=== PATIENT | female | born 1970 | race African-American/Black ===

== ENCOUNTER 2019-07-16 11:35 | Outpatient (CLI) | payer MEDICARE, SELFPAY ==
[2019-07-16 12:42] LABS: Hemoglobin A1C 8.5 % (<5.7)
[2019-07-16 12:47] LABS: Alanine Aminotransferase 24 U/L (4-35); Albumin Level 4.3 g/dL (3.5-5.1); Alkaline Phosphatase 142 U/L (38-126); Aspartate Amino Transferase 32 U/L (14-36); Bilirubin,Total 0.3 mg/dL (0.2-1.3); Blood Urea Nitrogen 16 mg/dL (7-17); Calcium 8.8 mg/dL (8.4-10.2); Carbon Dioxide 29 mmol/L (22-30); Chloride 104 mmol/L (98-107); Cholesterol 162 mg/dL (0-200); Estimated Glomerular Filt Rate > 60; Glucose 76 mg/dL (65-105); HDL Direct 34 mg/dL; Potassium 4.3 mmol/L (3.4-5.0); Sodium 139 mmol/L (137-145); Triglycerides 285 mg/dL (<150)
[2019-07-16 12:58] LABS: LDL Cholesterol Direct 64 mg/dL
== END 2019-07-16 11:36 | disposition home or self-care (01) ==
LOC: ANHIMG 15:25 → ANHLAB 15:26
PROVIDERS: PCP Family Medicine; Referring Provider Family Medicine; Visit Provider Urology
DX: N13.5 Crossing vessel and stricture of ureter without hydronephrosis (principal); E11.65 Type 2 diabetes mellitus with hyperglycemia; I10 Essential (primary) hypertension; E78.2 Mixed hyperlipidemia
CPT/HCPCS: 36415; 80053; 80061; 83036

== ENCOUNTER 2019-07-17 10:49 | Outpatient (CLI) | payer MEDICARE, SELFPAY ==
--- NOTE | ~2019-07-17 | NM_ITS ---
EXAMINATION: MIKY hunter renal scan DATE: 07/17/2019 13:17 INDICATION: Right hydronephrosis. TECHNIQUE: 8 mCi Tc-99m MAG3 was administered IV. 40 mg furosemide was administered IV immediately a fterward. The patient was scanned in the supine position. A posterior abdominal radionuclide angiogra m was obtained. A subsequent time course of static images of the kidneys, ureters, and bladder was ob tained. COMPARISON: CT abdomen and pelvis 02/10/2019 FINDINGS: The posterior abdominal radionuclide angiogram and sequential static images show normal siz e, position, and morphology of the kidneys. Peak renal parenchymal uptake was 8 min in right kidney a nd 2 min in left kidney (normal peak 3-5 minutes). The relative early renal uptake was 58% on the ri ght and 42% on the left (<40% is abnormal). No abnormalities of the ureters or bladder are seen. T1/2 for clearance of activity from the right kidney and proximal collecting system was >10 minutes. T1/2 for clearance of activity from the left kidney and proximal collecting system was 7 minutes. IMPRESSION: 1. Symmetric kidney function. 2. Delayed contrast clearance from right kidney and proximal collecting system, consistent with fixe d obstruction. Reviewed, dictated and finalized at location A. IMPRESSION: 1. Symmetric kidney function. 2. Delayed contrast clearance from right kidney and proximal collecting system , consistent with fixed obstruction.
== END 2019-07-17 10:50 | disposition home or self-care (01) ==
PROVIDERS: PCP Family Medicine; Visit Provider Urology
DX: N13.5 Crossing vessel and stricture of ureter without hydronephrosis (principal)
CPT/HCPCS: 78708; A9562; J1940

== ENCOUNTER 2019-08-11 18:12 | Emergency (ER) | payer MEDICARE, SELFPAY ==
--- NOTE | 2019-08-11 19:25 | PC.NURSE ---
LWBS, NO TRIAGE DONE LEFT AT 1923
== END 2019-08-11 18:13 | disposition left against medical advice (07) ==
LOC: ANHED 12-30 11:35
DX: Z53.21 Procedure and treatment not carried out due to patient leaving prior to being seen by health care provider (principal)
CPT/HCPCS: 99199

== ENCOUNTER 2019-09-21 16:57 | Emergency (ER) | payer MEDICARE, SELFPAY ==
--- NOTE | ~2019-09-21 | XR_ITS ---
EXAMINATION: XR chest 2V 09/21/2019 17:32 INDICATION: Chest pain and shortness of breath. PROCEDURE: PA and lateral views of the chest COMPARISON: 11/11/2017 FINDINGS: The lungs are clear. The cardiomediastinal silhouette is within normal limits. There are no pleural effusions. There is no pneumothorax suspected. IMPRESSION: 1: NO ACUTE CARDIOPULMONARY DISEASE. Reviewed, dictated and finalized at location A.
[2019-09-21 16:59] VITALS: BP 155/87; PULSE 91; RESP 22; TEMP 35.3; O2SAT 100
--- NOTE | 2019-09-21 17:09 | ECG_ITS ---
Measurements Intervals [place] Rate: 89 P: 55 WV: 174 QRS: 16 QRSD: 95 T: 9 QT: 359 QTc: 438 Interpretive Statements SINUS RHYTHM VOLTAGE CRITERIA FOR LVH BORDERLINE ECG Electronically Signed On 09-21-2019 17:11:15 CDT by Damian Powell D.O.
[2019-09-21 17:10] VITALS: PULSE 97
[2019-09-21 17:24] LABS: Basophils Absolute Auto 0.1 K/mm3 (0.0-0.1); Basophils Percent Auto 0.5 % (0.2-1.2); Eosinophils Absolute Auto 0.1 K/mm3 (0-0.3); Eosinophils Percent Auto 0.8 % (0-4.4); Hematocrit 34.1 % (37.0-47.0); Hemoglobin 11.6 g/dL (12.0-15.0); Immature Granulocyte Absolute 0.04 K/mm3 (0.00-0.031); Immature Granulocyte Percent A 0.4 % (0-0.5); Lymphocytes Absolute Auto 2.95 K/mm3 (0.9-3.2); Lymphocytes Percent Auto 27.4 % (18.3-44.2); Mean Corpuscular Hemoglobin 30.8 pg (26-34); Mean Corpuscular Volume 90.5 fl (80-100); Mean Platelet Volume 10.6 fl (7.4-10.4); Monocytes Absolute Auto 0.5 K/mm3 (0.1-0.6); Neutrophils Absolute Auto 7.1 K/mm3 (1.3-6.7); Neutrophils Percent Auto 65.9 % (45.5-73.1); Platelet Count Result 264 k/mm3 (150-375); Red Blood Count 3.77 M/mm3 (4.2-5.4); Red Cell Distribution Width 12.9 % (11.5-14.5); White Blood Count 10.8 K/mm3 (4.5-10.0)
[2019-09-21 17:34] LABS: Prothrombin Time 12.8 Seconds (11.1-14.7)
[2019-09-21 17:35] LABS: Partial Thromboplastin Time 24.2 SECONDS (22.3-36.8)
[2019-09-21 17:36] LABS: Blood Urea Nitrogen 18 mg/dL (7-17); Calcium 8.8 mg/dL (8.4-10.2); Carbon Dioxide 26 mmol/L (22-30); Chloride 100 mmol/L (98-107); Estimated CRCL calculation 62 ml/min; Estimated Glomerular Filt Rate > 60; Glucose 208 mg/dL (65-105); Sodium 135 mmol/L (137-145)
[2019-09-21 17:48] LABS: Troponin I < 0.012 ng/mL (0.000-0.034)
[2019-09-21] MEDS: ONDANSETRON INJ 4 MG/2 ML VIAL IV PUSH (17:54)
[2019-09-21] MEDS: MORPHINE SULFATE 2 MG/ML INJ IV PUSH (17:56)
[2019-09-21 17:57] VITALS: BP 153/78; PULSE 96; RESP 22; O2SAT 100
--- NOTE | 2019-09-21 18:15 | ED.GENADULT ---
HPI - General Adult General Chief complaint: Chest Pain Stated complaint: sob/cp Time Seen by Provider: 09/21/19 17:29 Source: patient and family Mode of arrival: ambulatory Limitations: no limitations History of Present Illness HPI narrative: 49-year-old with a history of hypertension, diabetes here with complaints of sudden onset of neck pain radiating into her left arm. Patient states that she was at [employer] restaurant was just about to start her dinner developed chest pain. Patient also states that she broke up into cold sweats. She denied any chest pain or shortness of breath. Pain is mostly in the left part of the shoulder. Onset (ago): hour(s) (1) Location: neck Radiation: extremity (left) Severity: moderate Quality: aching Pain Consistency: constant Relieving factors: none Exacerbating factors: movement Associated symptoms: denies other symptoms Related Data Home Medications Medication Instructions Recorded Confirmed dulaglutide [Trulicity] mg SUBCUT 02/10/19 hydrochlorothiazide 02/10/19 insulin lispro [Humalog KwikPen 1 unit SUBCUT ONCE 02/10/19 Insulin] insulin lispro protamin-lispro SUBCUT 02/10/19 [Humalog Mix 75-25(U-100)Insuln] lisinopril 40 mg PO DAILY 02/10/19 simvastatin mg 02/10/19 metoprolol tartrate 09/21/19 oxycodone-acetaminophen 09/21/19 Allergies Allergy/AdvReac Type Severity Reaction Status Date / Time amoxicillin Allergy Unknown Rash Verified 09/21/19 17:14 Penicillins Allergy Unknown Rash Verified 09/21/19 17:14 Review of Systems Review of Systems: All systems reviewed & are unremarkable except as noted in HPI and below Constitutional: Constitutional: Reports no additional constitutional complaints Eyes: Eyes: Reports no additional eye complaints ENT: Reports system reviewed and no additional complaints, except as documented Cardiovascular: Cardiovascular: Reports no additional cardiovascular complaints Respiratory: Respiratory: Reports no additional respiratory complaints Gastrointestinal: Gastrointestinal: Reports as per HPI Musculoskeletal: Musculoskeletal: Reports as per HPI Neurologic: Reports system reviewed and no additional complaints, except as documented Endocrine: Endocrine: Reports no additional endocrine complaints Hematologic/Lymphatic: Hematologic/Lymphatic: Reports no additional hematologic/lymphatic complaints PMFSH Past Medical History Medical History Hypertension Surgical History Surgical History History of urostomy Family History Family History Mother Diabetes mellitus Father Hypertension Sibling Cerebrovascular accident Other Family history of arthritis Social History Social History Smoking status: Never smoker Alcohol intake: never Gender identity (if verbalized by the patient): Female Exam Narrative: Exam Narrative: GENERAL: Well-appearing, well-nourished, and in no acute distress. HEAD: Normocephalic, atraumatic. EYES: PERRLA and EOMI. ENT: Nares clear, no rhinorrhea or epistaxis. Mucous membranes moist. NECK: Supple. CHEST: Clear to auscultation. No respiratory distress. HEART: Regular rate and rhythm. No murmur heard. Normal peripheral pulses. ABDOMEN: Soft, non tender, non distended, normal active bowel sounds. EXTREMITIES: Normal range of motion. No edema.pain and tenderness in the left trapezius SKIN: Warm, dry, no rash. NEURO: No focal deficits. Alert and oriented x3. PSYCH: Normal mood and affect. Course Course Emergency Course: Patient states the pain is much improved after morphine. I discussed labs, EKG chest x-ray findings with the patient. Vital Signs Vital signs: Vital Signs Temperature 35.3 C L 09/21/19 16:59 Pulse Rate 91 09/21/19 16:59 Respiratory Rate
[2019-09-21 19:00] VITALS: O2SAT 99
[2019-09-21 19:38] VITALS: BP 121/73; PULSE 89; RESP 17; TEMP 37; O2SAT 100
== END 2019-09-21 19:38 | disposition home or self-care (01) ==
PROVIDERS: Emergency Provider Family Medicine; PCP Family Medicine
DX: R07.89 Other chest pain (principal); M54.10 Radiculopathy, site unspecified; I10 Essential (primary) hypertension; E11.9 Type 2 diabetes mellitus without complications; Z79.4 Long term (current) use of insulin; R94.31 Abnormal electrocardiogram [ECG] [EKG]
CPT/HCPCS: 36415; 71046; 80048; 84484; 85025; 85610; 85730; 93005; 96374; 96375; 99284; J2270; J2405

== ENCOUNTER 2020-01-02 11:24 | Outpatient (CLI) | payer MEDICARE, SELFPAY ==
[2020-01-02 12:07] LABS: Basophils Percent Auto 0.6 % (0.2-1.2); Eosinophils Absolute Auto 0.1 K/mm3 (0-0.3); Eosinophils Percent Auto 0.8 % (0-4.4); Hematocrit 38.8 % (37.0-47.0); Hemoglobin 13.1 g/dL (12.0-15.0); Immature Granulocyte Absolute 0.02 K/mm3 (0.00-0.031); Immature Granulocyte Percent A 0.3 % (0-0.5); Lymphocytes Absolute Auto 2.41 K/mm3 (0.9-3.2); Lymphocytes Percent Auto 33.2 % (18.3-44.2); Mean Corpuscular HGB Conc 33.8 g/dl (32-36); Mean Corpuscular Hemoglobin 30.8 pg (26-34); Mean Corpuscular Volume 91.3 fl (80-100); Mean Platelet Volume 10.7 fl (7.4-10.4); Monocytes Absolute Auto 0.4 K/mm3 (0.1-0.6); Monocytes Percent Auto 6.1 % (2.6-8.5); Neutrophils Absolute Auto 4.3 K/mm3 (1.3-6.7); Platelet Count Result 255 k/mm3 (150-375); Red Blood Count 4.25 M/mm3 (4.2-5.4); Red Cell Distribution Width 13.2 % (11.5-14.5); White Blood Count 7.3 K/mm3 (4.5-10.0)
[2020-01-02 12:21] LABS: Alanine Aminotransferase 64 U/L (4-35); Albumin Level 4.3 g/dL (3.5-5.1); Alkaline Phosphatase 150 U/L (38-126); Anion Gap 9 mmol/L (8-16); Aspartate Amino Transferase 45 U/L (14-36); Bilirubin,Total 0.7 mg/dL (0.2-1.3); Blood Urea Nitrogen 23 mg/dL (7-17); Calcium 9.8 mg/dL (8.4-10.2); Carbon Dioxide 27 mmol/L (22-30); Chloride 104 mmol/L (98-107); Estimated Glomerular Filt Rate > 60; Glucose 159 mg/dL (65-105); Magnesium 1.9 mg/dL (1.6-2.3); Potassium 5.3 mmol/L (3.4-5.0); Sodium 140 mmol/L (137-145)
[2020-01-02 12:28] LABS: Transferrin 250 mg/dL (206-381)
[2020-01-02 12:57] LABS: Iron 113 ug/dL (37-170)
[2020-01-02 13:06] LABS: Percent Iron Saturation 34 % (20-50)
[2020-01-02 13:14] LABS: Vitamin D 25 Hydroxy 17.7 ng/mL
[2020-01-02 13:15] LABS: Free T4 Free Thyroxine 0.82 ng/mL (0.78-2.19)
== END 2020-01-02 11:25 | disposition home or self-care (01) ==
LOC: ANHLAB 11:27
PROVIDERS: PCP Family Medicine; Visit Provider Family Medicine
DX: R55 Syncope and collapse (principal); I10 Essential (primary) hypertension; E11.42 Type 2 diabetes mellitus with diabetic polyneuropathy; Z51.81 Encounter for therapeutic drug level monitoring; Z79.899 Other long term (current) drug therapy; R53.83 Other fatigue
CPT/HCPCS: 36415; 80053; 82306; 82728; 83540; 83550; 83735; 84439; 84443; 84466; 85025

== ENCOUNTER 2020-02-16 09:31 | Outpatient (CLI) | payer MEDICARE, SELFPAY ==
--- NOTE | ~2020-02-16 | MM_ITS ---
EXAMINATION: MM screening jocelyn BI w lynne HISTORY: Screening TECHNIQUE: Craniocaudal and mediolateral oblique 3-D tomosynthesis images were obtained and synthetic 2-D images were generated. CAD analysis was submitted and interpreted. COMPARISON: Comparison to multiple prior studies sequentially, with oldest reviewed study dated 06/28. BREAST PARENCHYMAL COMPOSITION: There are scattered areas of fibroglandular density. FINDINGS: There are clusters of calcifications in the upper outer quadrant of the left breast. The ri ght breast is stable without evidence for malignancy. IMPRESSION: 1. Cluster of nonspecific calcifications developing in the upper outer quadrant of the left breast. 2. Magnification views are recommended. BI-RADS Category 0: Incomplete: Needs additional imaging evaluation. Reviewed, dictated and finalized at location A. ION ANALYST
== END 2020-02-16 09:32 | disposition home or self-care (01) ==
PROVIDERS: PCP Family Medicine; Visit Provider Family Medicine
DX: Z12.31 Encounter for screening mammogram for malignant neoplasm of breast (principal); R92.8 Other abnormal and inconclusive findings on diagnostic imaging of breast
CPT/HCPCS: 77063; 77067

== ENCOUNTER 2020-03-15 11:47 | Outpatient (CLI) | payer MEDICARE, SELFPAY ==
--- NOTE | ~2020-03-15 | MM_ITS ---
EXAMINATION: MM diagnostic mammo unilat LT HISTORY: Follow-up left breast calcifications TECHNIQUE: Additional 3-D tomosynthesis images of the left breast were performed and synthetic 2-D im ages were generated. CAD analysis was submitted and interpreted. COMPARISON: Comparison to multiple prior studies sequentially, with oldest reviewed study dated 06/28. BREAST PARENCHYMAL COMPOSITION: Breast composed of scattered areas of fibroglandular density. FINDINGS: There are clustered indeterminate calcifications upper outer quadrant of the left breast wh ich have increased in number and density compared with prior examination. There are no suspicious mas ses or architectural distortion. IMPRESSION: 1. Increasing number and density of clustered indeterminate calcifications upper outer quadrant of th e left breast. 2. Stereotactic left breast biopsy recommended. BI-RADS category 4, suspicious findings. Reviewed, dictated and finalized at location A. DESIGNER IMPRESSION: 1. Increasing number and density of clustered indeterminate calcifications uppe r outer quadrant of the left breast. 2. Stereotactic left breast biopsy recommended. BI-RADS category 4, suspicious findings.
== END 2020-03-15 11:48 | disposition home or self-care (01) ==
LOC: ANHIMG 11:49
PROVIDERS: PCP Family Medicine; Visit Provider Family Medicine
DX: R92.8 Other abnormal and inconclusive findings on diagnostic imaging of breast (principal)
CPT/HCPCS: 77065

== ENCOUNTER 2020-06-30 09:57 | Outpatient (CLI) | payer MEDICARE, SELFPAY ==
[2020-06-30 11:27] LABS: Hemoglobin A1C 9.6 % (<5.7)
[2020-06-30 11:38] LABS: Alanine Aminotransferase 19 U/L (4-35); Albumin Level 4.3 g/dL (3.5-5.1); Alkaline Phosphatase 134 U/L (38-126); Amylase 55 U/L (30-110); Anion Gap 8 mmol/L (8-16); Aspartate Amino Transferase 27 U/L (14-36); Bilirubin,Total 0.3 mg/dL (0.2-1.3); Blood Urea Nitrogen 31 mg/dL (7-17); Calcium 9.5 mg/dL (8.4-10.2); Carbon Dioxide 25 mmol/L (22-30); Chloride 104 mmol/L (98-107); Estimated Glomerular Filt Rate 58; Glucose 134 mg/dL (65-105); Lipase 102 U/L (23-300); Potassium 4.7 mmol/L (3.4-5.0); Sodium 137 mmol/L (137-145)
[2020-06-30 12:15] LABS: Vitamin D 25 Hydroxy 29.1 ng/mL
== END 2020-06-30 09:58 | disposition home or self-care (01) ==
PROVIDERS: PCP Family Medicine; Visit Provider Family Medicine
DX: E11.9 Type 2 diabetes mellitus without complications (principal); E55.9 Vitamin D deficiency, unspecified; E78.1 Pure hyperglyceridemia
CPT/HCPCS: 36415; 80053; 82150; 82306; 83036; 83690

== ENCOUNTER 2020-07-20 09:39 | Outpatient (CLI) | payer MEDICARE, SELFPAY ==
[2020-07-20 11:11] LABS: Basophils Absolute Auto 0.1 K/mm3 (0.0-0.1); Basophils Percent Auto 0.6 % (0.2-1.2); Eosinophils Absolute Auto 0.1 K/mm3 (0-0.3); Eosinophils Percent Auto 1.3 % (0-4.4); Hematocrit 33.3 % (37.0-47.0); Hemoglobin 11.7 g/dL (12.0-15.0); Immature Granulocyte Absolute 0.02 K/mm3 (0.00-0.031); Immature Granulocyte Percent A 0.2 % (0-0.5); Lymphocytes Absolute Auto 2.79 K/mm3 (0.9-3.2); Lymphocytes Percent Auto 34.1 % (18.3-44.2); Mean Corpuscular HGB Conc 35.1 g/dl (32-36); Mean Corpuscular Hemoglobin 30.6 pg (26-34); Mean Corpuscular Volume 87.2 fl (80-100); Mean Platelet Volume 11.6 fl (7.4-10.4); Monocytes Absolute Auto 0.4 K/mm3 (0.1-0.6); Monocytes Percent Auto 4.5 % (2.6-8.5); Neutrophils Absolute Auto 4.8 K/mm3 (1.3-6.7); Neutrophils Percent Auto 59.3 % (45.5-73.1); Platelet Count Result 241 k/mm3 (150-375); Red Blood Count 3.82 M/mm3 (4.2-5.4); Red Cell Distribution Width 12.7 % (11.5-14.5); White Blood Count 8.2 K/mm3 (4.5-10.0)
[2020-07-20 11:22] LABS: Alanine Aminotransferase 26 U/L (4-35); Albumin Level 4.1 g/dL (3.5-5.1); Alkaline Phosphatase 133 U/L (38-126); Anion Gap 7 mmol/L (8-16); Aspartate Amino Transferase 33 U/L (14-36); Bilirubin,Total 0.3 mg/dL (0.2-1.3); Blood Urea Nitrogen 19 mg/dL (7-17); Carbon Dioxide 30 mmol/L (22-30); Chloride 104 mmol/L (98-107); Estimated Glomerular Filt Rate > 60; Glucose 187 mg/dL (65-105); Potassium 4.1 mmol/L (3.4-5.0); Sodium 141 mmol/L (137-145)
[2020-07-20 11:25] LABS: INR 0.9; Prothrombin Time 12.5 Seconds (11.1-14.7)
== END 2020-07-20 09:40 | disposition home or self-care (01) ==
PROVIDERS: PCP Family Medicine; Visit Provider Internal Medicine Cardiovascular Disease
DX: R07.9 Chest pain, unspecified (principal); Z01.818 Encounter for other preprocedural examination
CPT/HCPCS: 36415; 80053; 85025; 85610

== ENCOUNTER 2020-09-11 15:46 | Emergency (ER) | payer MEDICARE, SELFPAY ==
[2020-09-11 15:54] VITALS: BP 151/90; PULSE 75; RESP 18; TEMP 36.5; O2SAT 100
[2020-09-11 15:57] VITALS: BP 151/90; PULSE 75; RESP 18; TEMP 36.5; O2SAT 100
--- NOTE | 2020-09-11 16:37 | ED.GENADULT ---
HPI - General Adult General Chief complaint: Urogenital-Female Stated complaint: Yeast Infection Source: patient Mode of arrival: ambulatory Limitations: no limitations History of Present Illness HPI narrative: Patient presents for evaluation of right-sided flank/abdominal pain. She indicates symptoms started on Sunday of this week. Pain is intermittent, and radiates from the right flank into the right groin. She has not visualized any vaginal discharge but believes she has some as she has experienced pruritus in the vaginal region. She states today she noted blood on the tissue after wiping with urination. Last night she experienced some hot flashes and chills. She further endorses nausea without vomiting. She is a fairly poor historian but states that she has been under the care of what sounds to be either nephrology or urology for unknown issues. She states that advanced imaging was ordered by her specialist approximately 1.5 months ago but was declined by her insurance. She tried OTC monistat but her symptoms persisted. She contacted her PCP and received oral diflucan, which has not alleviated her symptoms. Surgical history positive for bladder sling, and complete hysterectomy. She states that she has a history of diabetes and is using Humulin 65 units in the morning and 55 units in the evening. She states her blood sugars have been fairly well controlled. Of note though, patient has a history of trans-metatarsal amputation secondary to diabetes. Related Data Home Medications Medication Instructions Recorded Confirmed dulaglutide [Trulicity] mg SUBCUT 02/10/19 hydrochlorothiazide 02/10/19 insulin lispro [Humalog KwikPen 1 unit SUBCUT ONCE 02/10/19 Insulin] lisinopril 40 mg PO DAILY 02/10/19 metoprolol tartrate 09/21/19 Allergies Allergy/AdvReac Type Severity Reaction Status Date / Time amoxicillin Allergy Unknown Rash Verified 09/11/20 15:51 Penicillins Allergy Unknown Rash Verified 09/11/20 15:51 Review of Systems Review of Systems: Narrative: CONSTITUTIONAL: Reports hot flashes and chills. Denies objective fever. EYES: Denies visual changes, redness, or discharge. ENT: Denies rhinorrhea, congestion, sore throat, or otalgia. CARDIOVASCULAR: Denies chest pain, palpitations, or edema. RESPIRATORY: Denies cough or dyspnea. GASTROINTESTINAL: Reports abdominal pain and nausea without vomiting. GENITOURINARY: Reports vaginal pruritus. Reports blood on the tissue after wiping with urination. SKIN: Denies rash MUSCULOSKELETAL: Reports right flank pain. Denies joint pain, or myalgia. NEUROLOGIC: Denies headache, numbness, dizziness, or weakness. PSYCHIATRIC: Denies anxiety or depression. [facility] Past Medical History Medical History (Updated 09/11/20 @ 17:36 by Lex Luong, CHICKEN TENDER, ) Diabetes Hypertension Surgical History Surgical History (Updated 09/11/20 @ 16:42 by Lex Luong [facility], ) H/O: hysterectomy History of transmetatarsal amputation of left foot History of urostomy Family History Family History Mother Diabetes mellitus Father Hypertension Sibling Cerebrovascular accident Other Family history of arthritis Social History Social History Smoking status: Never smoker Alcohol intake: never Substance use: never Gender identity (if verbalized by the patient): Female Spiritual care concerns: No Exam Narrative: Exam Narrative: GENERAL: Well-appearing, well-nourished, and in no acute distress. HEAD: Normocephalic, atraumatic. EYES: PERRLA and EOMI. ENT: Nares clear, no rhinorrhea or epistaxis. Mucous membranes moist. Oropharynx without tonsillar hypertrophy exudate or other lesions. Bilateral TMs pearly valentine nonbulging NECK: Supple. No adenopathy or masses. No carotid bruits or JVD CHEST: Clear to auscultation. No respiratory distress.
--- NOTE | 2020-09-11 17:21 | PC.NURSE ---
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 she didnt mention any worry about him stepping out of the marriage.
--- NOTE | 2020-09-11 17:24 | PC.NURSE ---
Addendum entered by Cheli Brito RN 09/11/20 17:25: time is 1724 not 192 Original Note: 1924- HAND III CUTTER contacted er for potential transfer to [facility].
--- NOTE | 2020-09-11 17:27 | PC.NURSE ---
1726- pt states that she is familiar with [facility], and would like to go there.
== END 2020-09-11 17:45 | disposition short-term general hospital (02) ==
PROVIDERS: Emergency Provider Nurse Practitioner; PCP Family Medicine
DX: R10.31 Right lower quadrant pain (principal); E11.9 Type 2 diabetes mellitus without complications; I10 Essential (primary) hypertension
CPT/HCPCS: 81003; 87070; 87086; 87088; 87491; 87591; 87661; 99213; G0463

== ENCOUNTER 2020-10-11 08:57 | Outpatient (CLI) | payer MEDICARE, SELFPAY ==
[2020-10-11 10:14] LABS: Alanine Aminotransferase 22 U/L (4-35); Albumin Level 4.2 g/dL (3.5-5.1); Alkaline Phosphatase 127 U/L (38-126); Anion Gap 9 mmol/L (8-16); Aspartate Amino Transferase 24 U/L (14-36); Bilirubin,Total 0.3 mg/dL (0.2-1.3); Blood Urea Nitrogen 23 mg/dL (7-17); Calcium 8.6 mg/dL (8.4-10.2); Carbon Dioxide 25 mmol/L (22-30); Chloride 101 mmol/L (98-107); Estimated Glomerular Filt Rate > 60; Glucose 156 mg/dL (65-110); Potassium 4.4 mmol/L (3.4-5.0); Sodium 135 mmol/L (137-145)
[2020-10-11 11:41] LABS: Hepatitis C Virus Antibody Negative (Negative)
== END 2020-10-11 08:58 | disposition home or self-care (01) ==
PROVIDERS: PCP Family Medicine
DX: E83.59 Other disorders of calcium metabolism (principal); N29 Other disorders of kidney and ureter in diseases classified elsewhere; I10 Essential (primary) hypertension; Z11.59 Encounter for screening for other viral diseases; R10.11 Right upper quadrant pain
CPT/HCPCS: 36415; 80053; 86803; 99212; G0463

== ENCOUNTER 2020-10-22 08:32 | Outpatient (CLI) | payer MEDICARE, SELFPAY ==
--- NOTE | ~2020-10-22 | US_ITS ---
EXAMINATION: US right upper quadrant DATE: 10/22/2020 09:24 INDICATION: Right upper quadrant pain TECHNIQUE: Multiple grayscale and Doppler ultrasound images of the abdomen were obtained. COMPARISON: None available FINDINGS: Bowel gas obscures visualization of the pancreas. The liver is normal with normal echogenic ity and echotexture. No surface nodularity. Normal hepatopetal flow in the main portal vein. The gall bladder is normal with no abnormal wall thickening, pericholecystic fluid or stones. The normal commo n bile duct measures 4 mm. There was no sonographic Chow sign. IMPRESSION: 1. Normal sonographic study of the gallbladder. Reviewed, dictated and finalized at location A.
== END 2020-10-22 08:33 | disposition home or self-care (01) ==
PROVIDERS: PCP Family Medicine
DX: R10.11 Right upper quadrant pain (principal)
CPT/HCPCS: 76705

== ENCOUNTER 2022-09-29 15:07 | Emergency (ER) | payer MEDICARE, SELFPAY ==
--- NOTE | ~2022-09-29 | XR_ITS ---
EXAMINATION: XR chest 2V Exam Date/Time: 09/29/2022 16:30 CDT HISTORY: short of breath upon exertion fatigue non smoker Comparison: 09/21/2019. RESULT: Lines, tubes, and devices: None. Lungs and pleura: Clear. Cardiomediastinal silhouette: Stable. Other: No acute osseous or upper abdominal finding. IMPRESSION: No acute cardiopulmonary process. Reviewed, dictated and finalized at location K.
[2022-09-29 15:21] VITALS: BP 140/93; PULSE 91; RESP 16; TEMP 37.2; O2SAT 100
--- NOTE | 2022-09-29 16:03 | ED.GENADULT ---
HPI - General Adult General Chief complaint: Unspecified Stated complaint: unsteady on feet, jitters, not feeling well Time Seen by Provider: 09/29/22 16:04 Source: patient Mode of arrival: ambulatory Limitations: no limitations History of Present Illness HPI narrative: 52-year-old female with history of diabetes and hypertension presented for complaint feeling exhausted for 1 week. She endorses dizziness when standing, intermittent hot flashes were she feels like she is about to pass out, and endorses shortness of breath with walking. She states walking from the bathroom to the kitchen in her home causes shortness of breath and she feels she needs to sit down immediately. Endorses brief episode of palpitations when she arrived to the clinic today, which resolved. Also reports nausea, and feeling like her tongue is 'heavy' and could not swallow. Last meal was breakfast today. Denies chest pain, cough, abdominal pain, vomiting, urinary complaints. Patient reports recent hospitalization for 'right foot infection' and abdominal pain after starting Trulicity. Endorses recent blood glucose levels 170s, last a1c 8.8. Related Data Home Medications Medication Instructions Recorded Confirmed dulaglutide 1.5 mg/0.5 mL 3.5 mg subcut WEEKLY 02/10/19 09/29/22 subcutaneous pen injector (Trulicity) hydrochlorothiazide 12.5 mg tablet 12.5 mg PO DAILY 02/10/19 09/29/22 insulin lispro 100 unit/mL 1 unit subcut ONCE 02/10/19 09/29/22 subcutaneous pen (Humalog KwikPen (U-100) Insulin) lisinopril 40 mg tablet 40 mg PO DAILY 02/10/19 09/29/22 metoprolol tartrate 50 mg tablet 50 mg PO DAILY 09/21/19 09/29/22 amlodipine 10 mg tablet 10 mg PO DAILY 09/29/22 09/29/22 prochlorperazine maleate 10 mg 10 mg PO DAILY 09/29/22 09/29/22 tablet simvastatin 40 mg tablet 40 mg PO DAILY 09/29/22 09/29/22 venlafaxine 37.5 mg 37.5 mg PO DAILY 09/29/22 09/29/22 capsule,extended release 24 hr Allergies Allergy/AdvReac Type Severity Reaction Status Date / Time amoxicillin Allergy Unknown Rash Verified 09/29/22 15:34 Penicillins Allergy Unknown Rash Verified 09/29/22 15:34 Review of Systems Review of Systems: CONSTITUTIONAL: Denies body aches, fever, chills, Reports fatigue and sweats. EYES: Denies visual changes, redness, or discharge. ENT: Denies rhinorrhea, congestion, sore throat, or otalgia. CARDIOVASCULAR: Reports palpitations denies chest pain, or edema. RESPIRATORY: Denies cough reports shortness of breath exertion GASTROINTESTINAL: Denies abdominal pain, vomiting, or diarrhea. GENITOURINARY: Denies dysuria or hematuria. SKIN: Denies rash, itching, or wounds. MUSCULOSKELETAL: Denies back pain, joint pain, or myalgia. NEUROLOGIC: Reports dizziness denies headache, numbness, tingling, or weakness. All systems reviewed & are unremarkable except as noted in HPI and below PMFSH Past Medical History Medical History Diabetes Hypertension Surgical History Surgical History H/O: hysterectomy History of transmetatarsal amputation of left foot History of urostomy Family History Family History Mother Diabetes mellitus Father Hypertension Sibling Cerebrovascular accident Other Family history of arthritis Social History Social History Smoking status: Never smoker Alcohol intake: never Substance use: never Gender identity (if verbalized by the patient): Female Spiritual care concerns: No Comments At time of signature, I have reviewed and agree with nursing past medical, surgical, social and family history unless otherwise noted. Please see nursing chart for further information. There is no relevant family history pertinent to the presenting complaint Exam Narrative: GENERAL: mildl
--- NOTE | 2022-09-29 16:24 | ECG_ITS ---
Measurements Intervals [place] Rate: 85 P: 48 [place]: 169 QRS: 28 QRSD: 84 T: 78 QT: 349 QTc: 416 Interpretive Statements SINUS RHYTHM NONSPECIFIC T-WAVE ABNORMALITY ABNORMAL ECG COMPARED TO ECG 09/21/2019 17:04:01 T-WAVE ABNORMALITY NOW PRESENT Electronically Signed On 09-30-2022 12:37:06 CDT by Lex Barney M.D.
[2022-09-29 16:49] LABS: Glucose Point of Care 191 mg/dl (65-105)
== END 2022-09-29 17:39 | disposition short-term general hospital (02) ==
PROVIDERS: Emergency Provider Nurse Practitioner Family
DX: R42 Dizziness and giddiness (principal); R06.00 Dyspnea, unspecified; E11.9 Type 2 diabetes mellitus without complications; I10 Essential (primary) hypertension
CPT/HCPCS: 71046; 82948; 93005; 99213; G0463

== ENCOUNTER 2022-12-08 13:28 | Outpatient (CLI) | payer MEDICARE, SELFPAY ==
--- NOTE | ~2022-12-08 | MM_ITS ---
EXAMINATION: MM screening jocelyn BI w [facility] HISTORY: Screening TECHNIQUE: Craniocaudal and mediolateral oblique 3-D tomosynthesis images were obtained and synthetic 2-D images were generated. CAD analysis was submitted and interpreted. COMPARISON: Comparison to multiple prior studies sequentially, with oldest reviewed study dated 06/28. BREAST PARENCHYMAL COMPOSITION: Breast composed of scattered areas of fibroglandular density FINDINGS: There is no evidence of suspicious mass, calcification, or architectural distortion to sugg est malignancy in either breast. There has been no suspicious interval change. IMPRESSION: 1. No mammographic evidence of malignancy. 2. Recommend routine screening mammography in one year. BI-RADS Category 1: Negative Reviewed, dictated and finalized at location A.
== END 2022-12-08 13:29 | disposition home or self-care (01) ==
LOC: ANHIMG 13:31
PROVIDERS: PCP Internal Medicine; Visit Provider Internal Medicine
DX: Z12.31 Encounter for screening mammogram for malignant neoplasm of breast (principal)
CPT/HCPCS: 77063; 77067

== ENCOUNTER 2022-12-30 10:40 | Emergency (ER) | payer MEDICARE, SELFPAY ==
[2022-12-30 11:03] VITALS: BP 153/80; PULSE 85; RESP 14; TEMP 36.4; O2SAT 100
--- NOTE | 2022-12-30 11:53 | ED.FEMALEGU ---
HPI - Female Genitourinary General Chief complaint: Urogenital-Female Stated complaint: UTI Time Seen by Provider: 12/30/22 11:40 Source: patient, RN notes reviewed and old records reviewed (previous UAs) Mode of arrival: ambulatory Limitations: no limitations History of Present Illness HPI Narrative: Patient presents today complaining of suprapubic, ?heaviness? and cramping since yesterday. Patient was on ciprofloxacin prescribed by her PCP from 12/22 to 12/29/2022. She did not provide urine sample in her PCPs office, but was prescribed medication based on her symptoms as she has frequent UTIs. States her dysuria had resolved. She is getting ready to go out of town and wanted to make sure she did not develop an additional UTI prior to leaving. Related Data Home Medications Medication Instructions Recorded Confirmed hydrochlorothiazide 12.5 mg tablet 12.5 mg PO DAILY 02/10/19 12/30/22 insulin lispro 100 unit/mL 1 unit subcut ONCE 02/10/19 12/30/22 subcutaneous pen (Humalog KwikPen (U-100) Insulin) lisinopril 40 mg tablet 40 mg PO DAILY 02/10/19 12/30/22 metoprolol tartrate 50 mg tablet 50 mg PO DAILY 09/21/19 12/30/22 amlodipine 10 mg tablet 10 mg PO DAILY 09/29/22 12/30/22 prochlorperazine maleate 10 mg 10 mg PO DAILY 09/29/22 12/30/22 tablet simvastatin 40 mg tablet 40 mg PO DAILY 09/29/22 12/30/22 venlafaxine 37.5 mg 37.5 mg PO DAILY 09/29/22 12/30/22 capsule,extended release 24 hr Allergies Allergy/AdvReac Type Severity Reaction Status Date / Time amoxicillin Allergy Unknown Rash Verified 09/29/22 15:34 Penicillins Allergy Unknown Rash Verified 09/29/22 15:34 fish oil Allergy Rash Verified 12/30/22 11:06 Review of Systems Review of Systems: CONSTITUTIONAL: Denies body aches, fever, chills, or sweats. EYES: Denies visual changes, redness, or discharge. ENT: Denies rhinorrhea, congestion, sore throat, or otalgia. CARDIOVASCULAR: Denies chest pain, palpitations, or edema. RESPIRATORY: Denies cough or dyspnea. GASTROINTESTINAL: Denies abdominal pain, nausea, vomiting, or diarrhea. GENITOURINARY: Denies dysuria or hematuria. + suprapubic cramping SKIN: Denies rash, itching, or wounds. MUSCULOSKELETAL: Denies back pain, joint pain, or myalgia. NEUROLOGIC: Denies headache, numbness, tingling, or weakness. PSYCH: Denies depression or anxiety. [facility] Past Medical History Medical History Diabetes Hypertension Surgical History Surgical History H/O: hysterectomy History of transmetatarsal amputation of left foot History of urostomy Family History Family History Mother Diabetes mellitus Father Hypertension Sibling Cerebrovascular accident Other Family history of arthritis Social History Social History Smoking status: Never smoker Alcohol intake: never Substance use: never Gender identity (if verbalized by the patient): Female Spiritual care concerns: No Comments At time of signature, I have reviewed and agree with nursing past medical, surgical, social and family history unless otherwise noted. Please see nursing chart for further information. There is no relevant family history pertinent to the presenting complaint Exam Narrative: GENERAL: Well-appearing, well-nourished, and in no acute distress. HEAD: Normocephalic, atraumatic. EYES: EOMI. No redness or drainage. Conjunctivae normal. ENT: Mucous membranes pink and moist. NECK: Normal AROM. CHEST: No respiratory distress. Clear to auscultation. HEART: Regular rate and rhythm. No murmur appreciated. Normal peripheral pulses. ABDOMEN: Soft, nontender, nondistended, normal active bowel sounds. EXTREMITIES: Normal range of motion. No edema. SKIN: Warm, dry, no rash. Capillary r
== END 2022-12-30 12:00 | disposition home or self-care (01) ==
PROVIDERS: Emergency Provider Nurse Practitioner
DX: R10.30 Lower abdominal pain, unspecified (principal); E11.9 Type 2 diabetes mellitus without complications; I10 Essential (primary) hypertension; Z79.899 Other long term (current) drug therapy
CPT/HCPCS: 81003; 87086; 87088; 99213; G0463

== ENCOUNTER 2023-05-20 16:21 | Inpatient (IN) | payer MEDICARE, SELFPAY ==
[2023-05-20] VITALS (12 sets, daily range): BP systolic 152–187; BP diastolic 78–94; PULSE 87–92; RESP 12–21; TEMP 36.2–36.9; O2SAT 100; BMI 31.4
--- NOTE | ~2023-05-20 | CT_ITS ---
Non-contrast CT scan of the Abdomen and Pelvis Clinical indication: Abdominal pain Technique: 2.5 mm axial scans were obtained through the abdomen and pelvis without intravenous or or al contrast. Dose reduction technique was used on this scan by utilizing automated exposure control a nd iterative reconstruction technique. The dose-length product (DLP) was 917.16 mGy-cm. Findings: Images through the lung bases reveal no abnormalities. There are 3 mm bilateral nonobstructing renal stones. Left kidney otherwise unremarkable, without hyd ronephrosis or left ureteral stone. There are multiple low-density somewhat masslike lesions in the r ight kidney. Mild fullness the right renal pelvis. No right ureteral stone. The liver, spleen, pancreas, gallbladder, and adrenals appear normal. There is no aortic aneurysm. There is no evidence of bowel obstruction. Images through the pelvis were performed. There is no evidence of ascites or lymphadenopathy. Urinary bladder unremarkable. No pelvic mass seen. Impression: Multiple low-density somewhat masslike lesion in the right kidney. Findings could reflect cysts, low- density masses, abscesses, or possibly hydronephrosis. Recommend ultrasound and/or pre and postcontra st MR to further evaluate. Due to technical issues, prior exam from 02/09/2019 cannot be retrieved fo r direct comparison at this time. Comparison with this prior exam would be useful to assess for possi ble stability of the appearance of the right kidney. Small bilateral nonobstructing renal stones. Reviewed, dictated and finalized at [facility]. Impression: Multiple low-density somewhat masslike lesion in the right kidney. Findings cou ld reflect cysts, low-density masses, abscesses, or possibly hydronephrosis. Re commend ultrasound and/or pre and postcontrast MR to further evaluate. Due to t echnical issues, prior exam from 02/09/2019 cannot be retrieved for direct comp arison at this time. Comparison with this prior exam would be useful to assess for possible stability of the appearance of the right kidney. Small bilateral nonobstructing renal stones.
--- NOTE | ~2023-05-20 | CT_ITS ---
EXAMINATION: CT brain wo con DATE: 05/22/2023 10:10 INDICATION: Blurred vision. TECHNIQUE: Computed tomography (CT) of the head was performed without intravenous contrast. The mA wa s adjusted according to patient size. Iterative reconstruction technique was employed. The dose-lengt h product was 605.33 mGy-cm. COMPARISON: None FINDINGS: There is no intracranial hemorrhage, acute infarction, or abnormal intracranial mass lesion . The ventricles are normal in size. Right ocular globe is small and irregular calcifications, consis tent with phthisis bulbi. There is mild mucosal thickening in the paranasal sinuses. The mastoid air cells are normal. IMPRESSION: 1. Normal brain. 2. Right-sided phthisis bulbi. Reviewed, dictated and finalized at location A.
--- NOTE | 2023-05-20 18:53 | ED.GENADULT ---
HPI - General Adult General Chief complaint: Recheck/Abnormal Lab/Rx Stated complaint: Needs IV antibiotics Time Seen by Provider: 05/20/23 18:51 History of Present Illness HPI narrative: Patient is a 53-year-old female with history of complicated urinary infection here with abnormal urine culture outpatient requesting IV antibiotics and hospitalization. Patient notes that she was admitted to [facility] from March 05 to March 09 for UTI. There she was given multiple antibiotics which she notes were cousins of penicillins which she is allergic to and she had a rash in response. She notes she eventually was discharged, has been following with a urologist, Dr. Lucero and he performed a urine in his clinic. The urine resulted positive for a UTI and the urine culture grew Klebsiella. Given her urine susceptibilities and allergies, patient was advised that she will require IV antibiotics. Her urologist did discuss the case with a infectious disease specialist, Dr. Gonzales. Patient has had phone discussions with this physician and she received a voicemail 2 days ago advising the patient that she could not be directly admitted to [facility] and would have to present to that emergency department or an affiliated emergency department in the [facility] system where she could become admitted to the hospital to receive IV antibiotics and coordinate outpatient antibiotics. She was additionally given the option of outpatient antibiotics exclusively and she had declined this because she felt unwell. Patient notes that she has been feeling under the weather since her hospitalization in February. Her urinary symptoms had been mild until she began having severe dysuria again today. Related Data Home Medications Medication Instructions Recorded Confirmed hydrochlorothiazide 12.5 mg tablet 12.5 mg PO DAILY 02/10/19 12/30/22 insulin lispro 100 unit/mL 1 unit subcut ONCE 02/10/19 12/30/22 subcutaneous pen (Humalog KwikPen (U-100) Insulin) lisinopril 40 mg tablet 40 mg PO DAILY 02/10/19 12/30/22 metoprolol tartrate 50 mg tablet 50 mg PO DAILY 09/21/19 12/30/22 amlodipine 10 mg tablet 10 mg PO DAILY 09/29/22 12/30/22 prochlorperazine maleate 10 mg 10 mg PO DAILY 09/29/22 12/30/22 tablet simvastatin 40 mg tablet 40 mg PO DAILY 08/11/23 11/11/23 venlafaxine 37.5 mg 37.5 mg PO DAILY 09/29/22 12/30/22 capsule,extended release 24 hr Allergies Allergy/AdvReac Type Severity Reaction Status Date / Time amoxicillin Allergy Unknown Rash Verified 09/29/22 15:34 Penicillins Allergy Unknown Rash Verified 09/29/22 15:34 fish oil Allergy Rash Verified 12/30/22 11:06 Review of Systems Review of Systems: All systems reviewed & are unremarkable except as noted in HPI and below PMFSH Past Medical History Medical History Diabetes Hypertension Surgical History Surgical History H/O: hysterectomy History of transmetatarsal amputation of left foot History of urostomy Family History Family History Mother Diabetes mellitus Father Hypertension Sibling Cerebrovascular accident Other Family history of arthritis Social History Social History Smoking status: Never smoker Alcohol intake: never Substance use: never Gender identity (if verbalized by the patient): Female Spiritual care concerns: No Exam Narrative: GENERAL: Well-appearing, well-nourished, and in no acute distress. HEAD: Normocephalic, atraumatic. EYES: PERRLA and EOMI. ENT: Nares clear. Mucous membranes moist. NECK: Supple. CHEST: Clear to auscultation. No respiratory distress. HEART: Regular rate and rhythm. Normal peripheral pulses. ABDOMEN: Soft, mild suprapubic tenderness, no rebound o
[2023-05-20 19:16] LABS: Appearance Urine Turbid (Clear); Bacteria Urine 4+ /hpf; Bilirubin Urine Negative (Negative); Blood Urine 1+ (Negative); Color Urine Yellow (Yellow); Glucose Urine UA 3+ mg/dL (Negative); Ketones Urine Negative (Negative); Leukocyte Esterase Ur 3+ LEU/UL (Negative); Nitrate Urine Positive (Negative); Non Pathogenic Casts 0-2; Protein Urine 2+ mg/dL (Negative); RBC Urine 0-2 /hpf (0-2); Specific Grav Ur 1.015 (1.001-1.035); Squamous Epithelial Cell Urine Occasional /hpf (Few); Urobilinogen Urine 0.2 mg/dL (<2.0); WBC Urine >100 /hpf (0-3); pH Urine 5.5 (5.0-9.0)
[2023-05-20 19:28] LABS: Add Urine Microscopic? YES
[2023-05-20 20:51] LABS: Basophils Absolute Auto 0.1 K/mm3 (0.0-0.1); Basophils Percent Auto 0.6 % (0.2-1.2); Eosinophils Absolute Auto 0.1 K/mm3 (0-0.3); Eosinophils Percent Auto 1.3 % (0-4.4); Hematocrit 34.5 % (37.0-47.0); Hemoglobin 11.8 g/dL (12.0-15.0); Immature Granulocyte Absolute 0.03 K/mm3 (0.00-0.031); Immature Granulocyte Percent A 0.3 % (0-0.5); Lymphocytes Absolute Auto 3.26 K/mm3 (0.9-3.2); Lymphocytes Percent Auto 36.1 % (18.3-44.2); Mean Corpuscular HGB Conc 34.2 g/dl (32-36); Mean Corpuscular Hemoglobin 30.2 pg (26-34); Mean Corpuscular Volume 88.2 fl (80-100); Mean Platelet Volume 11.4 fl (7.4-10.4); Monocytes Absolute Auto 0.5 K/mm3 (0.1-0.6); Neutrophils Percent Auto 55.7 % (45.5-73.1); Platelet Count Result 267 k/mm3 (150-375); Red Blood Count 3.91 M/mm3 (4.2-5.4); Red Cell Distribution Width 13.7 % (11.5-14.5)
[2023-05-20] MEDS: MEROPENEM 1 GM/NS 100 ML 1 GM/100 ML BAG IVPB (20:52)
[2023-05-20 21:19] LABS: Lactic Acid Reflex 1.5 mmol/L (0.7-2.0)
[2023-05-20 21:23] LABS: Alanine Aminotransferase 33 U/L (6-35); Albumin Level 4.3 g/dL (3.5-5.1); Alkaline Phosphatase 174 U/L (38-126); Anion Gap 5 mmol/L (4-12); Aspartate Amino Transferase 33 U/L (14-36); Bilirubin,Total 0.7 mg/dL (0.2-1.3); Blood Urea Nitrogen 26 mg/dL (7-17); CRP 3.4 mg/dL (<1.0); Calcium 9.4 mg/dL (8.4-10.2); Carbon Dioxide 28 mmol/L (22-30); Chloride 103 mmol/L (98-107); Estimated CRCL calculation 72 ml/min; Estimated Glomerular Filt Rate > 60; Glucose 198 mg/dL (65-110); Sodium 136 mmol/L (137-145)
--- NOTE | 2023-05-20 22:37 | PM.IMHP ---
H&P: HPI History of Present Illness Date/Time: 05/20/23 22:37 Chief Complaint: 1. Lower abdominal pain 2. Increased urinary frequency Narrative: Lena Mcneal is a 53 yo F with a mHx significant for obesity, dyslipidemia, HTN, recurrent UTI and IDDM. She in the past has had a history of recurrent UTIs and at one point was placed on a Ciprofloxacin regimen to treat and prevent recurrence. After an inpatient stay (03/05-) for UTI and was found to have developed a kidney infection (probably pyelonephritis) at [facility] was discharged but developed a recurrence in 03/2023 for which her PCP placed her on a PO regimen (?Rx); She followed-up with the Urologist (Dr. Lucero), who performed a cystoscopy and a repeat UA demonstrated UTI with Klebsiella spp; with the susceptibilities and allergy profile (Penicillins+Cephalosporins), the decision was made to pursue an IV Rx in collaboration with Dr. Gonzales (ID. Attempts to directly admit her to [facility] fell through and the decision was made to pursue an admission via the ED; she erroneously presented to the [facility] ED. She attests to malaise, fatigue, chills, subjective fevers, rigors; she denies nausea, vomiting, hematuria, dizziness or LOC. She describes a sharp and cramping supra-pubic pain that intermittent; worse at the end of micturition; poorly alleviated with OTC analgesia; associated with anxiety and malaise. She does not smoke/chew tobacco, drink alcohol or consume recreational drugs; her family Hx is not contributory to the PC; she is s/p hysterectomy and was born with an underdeveloped r/kidney. Work-up findings: LA 1.5 Hb 11 WBC 9 UA: Turbid, >100 WBC, 3+ LE At the bedside, she is calm and aler; not in painful or respiratory distress; +suprapubic tenderness; Lungs are clear; mucus membranes moist. Lena Mcneal will be admitted, evaluated and managed for recurrent UTI with few Abx options due to susceptibilities and allergy profile; the plan will be to connect her back with Dr. De La Rosa and Jazmine after a few days of therapy. Review of Systems Constitutional: Constitutional: Reports body ache(s), Reports chills and Reports fatigue Eyes: Comments: Right eye blindness ENT: Reports Normal hearing present, Denies dysphagia, Denies epistaxis, Denies nasal congestion, Denies nasal discharge and Denies tinnitus Cardiovascular: Cardiovascular: Denies chest pain, Denies diaphoresis, Denies pedal edema, Denies leg edema, Denies lightheadedness and Denies palpitations Respiratory: Respiratory: Denies cough, Denies hemoptysis, Denies dyspnea and Denies dyspnea on exertion Gastrointestinal: Gastrointestinal: Denies no additional gastrointestinal complaints, Denies constipation, Denies heartburn, Denies diarrhea, Denies nausea and Denies vomiting Genitourinary: Genitourinary: Reports nocturia, Reports dysuria, Reports pelvic pain, Reports urinary incontinence and Reports urinary urgency Musculoskeletal: Musculoskeletal: Denies back pain, Reports myalgias, Denies arthralgias and Denies joint swelling Integumentary/Breasts: Skin/Breast: Denies dry skin, Denies erythema, Denies rash and Denies wounds Neurologic: Denies abnormal gait, Denies confusion, Denies vertigo, Reports headache(s) and Reports numbness Psychiatric: Psychiatric: Denies anxiety, Denies behavioral changes, Denies confusion, Denies homicidal ideation and Denies suicidal ideation [facility] Past Medical History Medical History (Updated 05/20/23 @ 23:05 by Hubert Trotter MD) BMI 31.0-31.9,adult Diabetes Dyslipidemia Hypertension Surgical History Surgical History H/O: hysterectomy History of transmetatarsal amputation of left foot History of urostomy Family History Family History Mother Diabetes mellitus Father Hypertension Sibling Cerebrovascular a
[2023-05-20] MEDS: KETOROLAC 15 MG/ML VIAL (*BKC) IV PUSH (23:01)
[2023-05-21] MEDS: SODIUM CHLORIDE 0.9% IV 1,000 ML 100 ML IV CONT ×2 (00:23→12:36)
[2023-05-21] MEDS: MEROPENEM 1 GM/NS 100 ML 1 GM/100 ML BAG IVPB ×3 (05:17→21:11)
[2023-05-21] MEDS: KETOROLAC 15 MG/ML VIAL (*BKC) IV PUSH ×2 (05:17→12:34)
[2023-05-21 05:41] VITALS: BP 139/68; PULSE 83; RESP 16; TEMP 36.4; O2SAT 100
[2023-05-21 08:03] LABS: Glucose Point of Care 280 mg/dl (65-105)
[2023-05-21 09:50] LABS: Hemoglobin 11.7 g/dL (12.0-15.0); Mean Corpuscular HGB Conc 32.5 g/dl (32-36); Mean Corpuscular Hemoglobin 29.8 pg (26-34); Mean Corpuscular Volume 91.6 fl (80-100); Mean Platelet Volume 11.5 fl (7.4-10.4); Platelet Count Result 258 k/mm3 (150-375); Red Blood Count 3.93 M/mm3 (4.2-5.4); Red Cell Distribution Width 13.6 % (11.5-14.5); White Blood Count 7.2 K/mm3 (4.5-10.0)
[2023-05-21 09:59] LABS: Anion Gap 8 mmol/L (4-12); Blood Urea Nitrogen 24 mg/dL (7-17); Calcium 8.8 mg/dL (8.4-10.2); Carbon Dioxide 25 mmol/L (22-30); Chloride 105 mmol/L (98-107); Estimated CRCL calculation 65 ml/min; Estimated Glomerular Filt Rate > 60; Glucose 281 mg/dL (65-110); Potassium 4.2 mmol/L (3.4-5.0); Sodium 138 mmol/L (137-145)
[2023-05-21 10:13] VITALS: BP 111/57; PULSE 79; RESP 18; TEMP 36.3; O2SAT 100
[2023-05-21] MEDS: ACETAMINOPHEN 325 MG TABLET 650 MG PO (10:20)
[2023-05-21] MEDS: ENOXAPARIN 40 MG/0.4 ML SYRINGE SUB-Q (10:21)
[2023-05-21 10:49] LABS: Hemoglobin A1C 10.4 % (<5.7)
[2023-05-21 11:16] LABS: Glucose Point of Care 357 mg/dl (65-105)
[2023-05-21] MEDS: INSULIN ASPART (*BKC) 100 UNITS/ML SUB-Q ×3 (12:32→20:59)
--- NOTE | 2023-05-21 15:18 | PM.IMPN ---
Progress Note: A&P Assessment and Plan (1) UTI (urinary tract infection): Qualifiers: Hematuria presence: without hematuria Urinary tract infection type: acute cystitis Qualified Code(s): N30.00 - Acute cystitis without hematuria Code(s): N39.0 - Urinary tract infection, site not specified Status: Acute Assessment and Plan: UA: Turbid, positive nitrate, 3+ leukocyte esterase, greater than 100 wbc's and 4+ bacteria Dr. Gonzales, ID specialist through [facility] system, clinic phone number who has been discussing care with patient. Notes she had urine culture which was positive for Klebsiella, susceptible to meropenem. patient was started on IV meropenem per ID doctor recommendations Urine culture pending. Adjust antibiotics to culture results. Recommend follow-up with ID and Urology at discharge. 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 Monitor renal function. CT abdomen pelvis ordered. Subjective Date/time seen: 05/21/23 15:18 Interval history: 05/19 Patient is a 53-year-old female with history of complicated urinary infection here with abnormal urine culture outpatient requesting IV antibiotics and hospitalization.? Patient notes that she was admitted to [facility]? from March 05 to March 09 for UTI.? There she was given multiple antibiotics which she notes were? cousins of penicillins which she is allergic to? and she had a rash in response.? She notes she eventually was discharged, has been following with a urologist, Dr. Lucero and he performed a urine in his clinic.? The urine resulted positive for a UTI and the urine culture grew Klebsiella. ? Given her urine susceptibilities and allergies, patient was advised that she will require IV antibiotics.? Her urologist did discuss the case with? a infectious disease specialist, Dr. Gonzales. Patient has had phone discussions with this physician and she received? a voicemail 2 days ago advising the patient that she could not be directly admitted to [facility] and would have to present to that emergency department or an affiliated emergency department in the [facility] system where she could become admitted to the hospital to receive IV antibiotics and coordinate outpatient antibiotics.? She was additionally given the option of outpatient antibiotics exclusively and she had declined this because she felt unwell.? Patient notes that she has been feeling under the weather since her hospitalization in February.? Her urinary symptoms had been mild until she began having severe dysuria again today. Spoke with Dr. Gonzales, ID specialist through [facility] system, clinic phone number who has been discussing care with patient. Notes she had urine culture which was positive for Klebsiella, susceptible to merem, recommends initiating merem and will need to have outpatient antibiotic infusions coordinated. 05/20 Patient is still having some urinary frequency and dysuria as well as right-sided back pain. She denies any body aches, chills or fevers. She continues on IV antibiotics. Urine culture pending. Patient states that she was told that she could had a perforated b
[2023-05-21 16:00] VITALS: BP 127/62; PULSE 69; RESP 18; TEMP 36.4; O2SAT 100
[2023-05-21 16:53] LABS: Glucose Point of Care 281 mg/dl (65-105)
[2023-05-21 19:59] LABS: Glucose Point of Care 383 mg/dl (65-105)
[2023-05-21 20:00] VITALS: BP 139/78; PULSE 90; RESP 16; TEMP 36.6; O2SAT 100
[2023-05-21] MEDS: INSULIN GLARGINE (*BKC) 100 UNITS/ML 30 UNITS SUB-Q (20:59)
[2023-05-21 22:00] VITALS: BP 139/78; PULSE 90; RESP 16; TEMP 36.6; O2SAT 100
[2023-05-22] VITALS (8 sets, daily range): BP systolic 125–178; BP diastolic 61–102; PULSE 73–94; RESP 12–18; TEMP 36.1–36.6; O2SAT 99–100
[2023-05-22] MEDS: SODIUM CHLORIDE 0.9% IV 1,000 ML 100 ML IV CONT
[2023-05-22] MEDS: traMADol HCL (*CRX) 50 MG TABLET PO (00:15)
[2023-05-22] MEDS: MEROPENEM 1 GM/NS 100 ML 1 GM/100 ML BAG IVPB ×3 (06:43→21:27)
[2023-05-22 07:07] LABS: Hemoglobin 11.3 g/dL (12.0-15.0); Mean Corpuscular HGB Conc 32.3 g/dl (32-36); Mean Corpuscular Volume 92.8 fl (80-100); Mean Platelet Volume 11.8 fl (7.4-10.4); Platelet Count Result 247 k/mm3 (150-375); Red Blood Count 3.77 M/mm3 (4.2-5.4); Red Cell Distribution Width 13.5 % (11.5-14.5); White Blood Count 6.7 K/mm3 (4.5-10.0)
[2023-05-22 07:13] LABS: Anion Gap 6 mmol/L (4-12); Blood Urea Nitrogen 19 mg/dL (7-17); Calcium 8.7 mg/dL (8.4-10.2); Carbon Dioxide 24 mmol/L (22-30); Chloride 106 mmol/L (98-107); Estimated CRCL calculation 91 ml/min; Estimated Glomerular Filt Rate > 60; Glucose 250 mg/dL (65-110); Potassium 4.3 mmol/L (3.4-5.0); Sodium 136 mmol/L (137-145)
[2023-05-22 07:56] LABS: Glucose Point of Care 219 mg/dl (65-105)
[2023-05-22] MEDS: INSULIN ASPART (*BKC) 100 UNITS/ML SUB-Q ×4 (08:58→21:42)
[2023-05-22] MEDS: ENOXAPARIN 40 MG/0.4 ML SYRINGE SUB-Q (08:59)
[2023-05-22 12:06] LABS: Glucose Point of Care 289 mg/dl (65-105)
--- NOTE | 2023-05-22 13:30 | PM.IMPN ---
Progress Note: A&P Assessment and Plan (1) UTI (urinary tract infection): Qualifiers: Hematuria presence: without hematuria Urinary tract infection type: acute cystitis Qualified Code(s): N30.00 - Acute cystitis without hematuria Code(s): N39.0 - Urinary tract infection, site not specified Status: Acute Assessment and Plan: UA: Turbid, positive nitrate, 3+ leukocyte esterase, greater than 100 wbc's and 4+ bacteria Dr. Gonzales, ID specialist through [facility] system, clinic phone number who has been discussing care with patient. Notes she had urine culture which was positive for Klebsiella, susceptible to meropenem. Patient was started on IV meropenem per ID doctor recommendations on 05/19 in the evening. Urine culture positive for Klebsiella pneumoniae. Sensitivities pending. Adjust antibiotics to culture results. Recommend follow-up with ID and Urology at discharge. 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 Monitor renal function. CT abdomen pelvis with multiple low-density somewhat masslike lesions to the right kidney. Known structural issues with patient right kidney. Subjective Date/time seen: 05/22/23 13:30 Interval history: 05/19 Patient is a 53-year-old female with history of complicated urinary infection here with abnormal urine culture outpatient requesting IV antibiotics and hospitalization.? Patient notes that she was admitted to [facility]? from March 05 to March 09 for UTI.? There she was given multiple antibiotics which she notes were? cousins of penicillins which she is allergic to? and she had a rash in response.? She notes she eventually was discharged, has been following with a urologist, Dr. Lucero and he performed a urine in his clinic.? The urine resulted positive for a UTI and the urine culture grew Klebsiella. ? Given her urine susceptibilities and allergies, patient was advised that she will require IV antibiotics.? Her urologist did discuss the case with? a infectious disease specialist, Dr. Gonzales. Patient has had phone discussions with this physician and she received? a voicemail 2 days ago advising the patient that she could not be directly admitted to [facility] and would have to present to that emergency department or an affiliated emergency department in the [facility] system where she could become admitted to the hospital to receive IV antibiotics and coordinate outpatient antibiotics.? She was additionally given the option of outpatient antibiotics exclusively and she had declined this because she felt unwell.? Patient notes that she has been feeling under the weather since her hospitalization in February.? Her urinary symptoms had been mild until she began having severe dysuria again today. Spoke with Dr. Gonzales, ID specialist through [facility] system, clinic phone number who has been discussing care with patient. Notes she had urine culture which was positive for Klebsiella, susceptible to merem, recommends initiating merem and will need to have outpatient antibiotic infusions coordinated. 05/20 Patient is still having some urinary frequency and dysuria a
[2023-05-22] MEDS: LIDOCAINE HCL 1% LOCAL INJ 2 ML AMPUL 5 ML INFILTRATE (14:20)
[2023-05-22] MEDS: amLODIPine BESYLATE 5 MG TABLET 10 MG PO (15:28)
[2023-05-22] MEDS: lisinopriL 20 MG TABLET 40 MG PO (15:28)
[2023-05-22] MEDS: ACETAMINOPHEN 325 MG TABLET 650 MG PO (15:29)
[2023-05-22 16:16] LABS: Glucose Point of Care 355 mg/dl (65-105)
[2023-05-22 20:23] LABS: Glucose Point of Care 365 mg/dl (65-105)
[2023-05-22] MEDS: HYDROcodone/acetaminophen (*CRX) 5-325 MG TABLET 1 TAB PO (21:27)
[2023-05-22] MEDS: SALINE LOCK FLUSH 10 ML IV PUSH (21:28)
[2023-05-22] MEDS: INSULIN GLARGINE (*BKC) 100 UNITS/ML 40 UNITS SUB-Q (21:42)
[2023-05-22 23:58] LABS: Glucose Point of Care 296 mg/dl (65-105)
[2023-05-23 04:00] VITALS: BP 124/78; PULSE 79; RESP 16; TEMP 36.1; O2SAT 100
[2023-05-23] MEDS: MEROPENEM 1 GM/NS 100 ML 1 GM/100 ML BAG IVPB ×2 (05:38→16:16)
[2023-05-23] MEDS: SALINE LOCK FLUSH 10 ML IV PUSH ×3 (05:40→16:58)
[2023-05-23] MEDS: ACETAMINOPHEN 325 MG TABLET 650 MG PO (05:40)
[2023-05-23 05:54] LABS: Hemoglobin 10.9 g/dL (12.0-15.0); Mean Corpuscular Hemoglobin 30.1 pg (26-34); Mean Corpuscular Volume 91.2 fl (80-100); Mean Platelet Volume 10.9 fl (7.4-10.4); Platelet Count Result 244 k/mm3 (150-375); Red Blood Count 3.62 M/mm3 (4.2-5.4); Red Cell Distribution Width 13.2 % (11.5-14.5); White Blood Count 7.2 K/mm3 (4.5-10.0)
[2023-05-23 06:09] LABS: Anion Gap 4 mmol/L (4-12); Blood Urea Nitrogen 21 mg/dL (7-17); Calcium 8.8 mg/dL (8.4-10.2); Carbon Dioxide 28 mmol/L (22-30); Chloride 105 mmol/L (98-107); Estimated CRCL calculation 80 ml/min; Estimated Glomerular Filt Rate > 60; Glucose 266 mg/dL (65-110); Potassium 4.5 mmol/L (3.4-5.0); Sodium 137 mmol/L (137-145)
[2023-05-23 08:00] VITALS: BP 137/68; PULSE 77; RESP 16; TEMP 36.8; O2SAT 100
[2023-05-23 08:09] LABS: Glucose Point of Care 237 mg/dl (65-105)
[2023-05-23] MEDS: ENOXAPARIN 40 MG/0.4 ML SYRINGE SUB-Q (09:14)
[2023-05-23] MEDS: amLODIPine BESYLATE 5 MG TABLET 10 MG PO (09:14)
[2023-05-23] MEDS: INSULIN ASPART (*BKC) 100 UNITS/ML SUB-Q (09:15)
[2023-05-23 11:39] LABS: Glucose Point of Care 199 mg/dl (65-105)
[2023-05-23 12:00] VITALS: BP 143/76; PULSE 80; RESP 18; TEMP 36.8; O2SAT 100
[2023-05-23] MEDS: lisinopriL 20 MG TABLET 40 MG PO (12:39)
--- NOTE | 2023-05-23 16:27 | PM.DS ---
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 - Hyperplastic and giant kidney Status: Acute (2) UTI (urinary tract infection): Qualifiers: Hematuria presence: without hematuria Urinary tract infection type: acute cystitis Qualified Code(s): N30.00 - Acute cystitis without hematuria Code(s): N39.0 - Urinary tract infection, site not specified Status: Acute (3) Diabetes: Code(s): E11.9 - Type 2 diabetes mellitus without complications Status: Chronic (4) Hypertension: Code(s): I10 - Essential (primary) hypertension Status: Chronic (5) Dyslipidemia: Code(s): E78.5 - Hyperlipidemia, unspecified Status: Chronic DS: Summary Hospital Course Reason for hospitalization: Urinary tract infection Diabetes Hypertension Dyslipidemia Congenital hypertrophy of kidney Hospital Course: 53 yo F with a significant past medical history for obesity, dyslipidemia, HTN, recurrent UTI and insulin dependent diabetes presented to the hospital for a urinary tract infection. Patient previously had an inpatient stay in February with recurrence in March for which she was started on a PO regimen. She follows with [facility] urologist Dr. Lucero, who performed a cystoscopy and repeat UA demonstrated UTI with Klebsiella. Due to the susceptibilities and allergy profile of penicillins and cephalosporins [facility] ID Dr. Gonzales was consulted. During patients current stay Dr. Gonzales was reached to discuss care. Due to patients current urine culture being positive for Klebsiella, susceptible to meropenem she will continue on meropenem per Dr. Gonzales. Dr. Gonzales agreed to follow the patients labs and home IV antibiotic needs. Patient denies dysuria, burning sensation, hematuria, and increased urinary frequency at time of discharge. Patient was discharged home with her in a stable condition. She will have home health follow her for ongoing IV meropenem. Patient will follow up with her primary care provider Dr. Segura in 1 week. Discussed with patient that she would benefit from an unloading checker to follow her diabetes. She plans to get a referral from her primary care. She will also follow up with [facility] urology and [facility] ID in 1 week. Status at Discharge Functional status at discharge: independent ambulation Time Spent with Patient Time attestation: Total time spent providing and/or coordinating discharge services: Time spent: Greater than 30 minutes Exam Narrative: AF HR 80 RR 18 SpO2 100 BP 143/76 General: well nourished, well-developed female in no acute respiratory distress who is nontoxic appearing, lying semi recumbent in bed. HEENT: Normocephalic. Atraumatic. Pupils equal round reactive to light. Extraocular movement intact. No facial asymmetry. Chest: Lungs are clear to auscultation bilaterally. No wheezes or crackles. CV: Heart was regular rate and rhythm. S1-S2. No murmurs, gallops, or rubs. Abd: Abdomen was soft. Nontender. Nondistended. Positive bowel sounds. No organomegaly or masses. Ext: No clubbing, cyanosis, or edema. 2+ DP pulses bilaterally. Neuro: Patient is alert and oriented x4. Speech is clear. Psych: Normal mood and affect. Patient is pleasant and cooperative. Skin: Warm and dry. No rashes noted. DS: Data Data Completed and Pending Completed studies during hospitalization: Head CT Abdomen/Pelvis CT Labs on day of discharge: Labs from last 24 hours 05/23/23 05/23/23 05/23/23 11:30 07:59 05:48 WBC 7.2 RBC 3.62 L Hgb 10.9 L Hct 33.0 L MCV 91.2 MCH 30.1 MCHC 33.0 RDW 13.2 Plt Count 244 MPV 10.9 H Sodium 137 Potassium 4.5 Chloride 105 Carbon Dioxide 28 Anion Gap 4 L BUN 2
== END 2023-05-23 17:20 | disposition home health service (06) | DRG 690 ==
LOC: ANHED 21:41 → ANH3MEDSUR 05-22 11:28
PROVIDERS: Internal Medicine Critical Care Medicine; Physician Assistant; Admitting Provider Internal Medicine; Emergency Provider Student in an Organized Health Care Education/Training Program; Visit Provider Hospitalist
DX: N39.0 Urinary tract infection, site not specified (principal); B96.1 Klebsiella pneumoniae [K. pneumoniae] as the cause of diseases classified elsewhere; E11.9 Type 2 diabetes mellitus without complications; I10 Essential (primary) hypertension; E78.5 Hyperlipidemia, unspecified; E66.9 Obesity, unspecified; Z68.31 Body mass index [BMI] 31.0-31.9, adult; Z79.4 Long term (current) use of insulin; Q63.3 Hyperplastic and giant kidney
CPT/HCPCS: 36415; 36569; 70450; 74176; 80048; 80053; 81001; 82948; 83036; 83605; 85025; 85027; 86140; 87077; 87086; 87088; 87186; 96365; 99285; A9270; J1650; J1815; J1885; J2185; J7030

== ENCOUNTER 2023-12-26 09:51 | Outpatient (CLI) | payer MEDICARE, SELFPAY ==
--- NOTE | ~2023-12-26 | MM_ITS ---
EXAMINATION: MM screening jocelyn BI w lynne HISTORY: Screening TECHNIQUE: Craniocaudal and mediolateral oblique 3-D tomosynthesis images were obtained and synthetic 2-D images were generated. CAD analysis was submitted and interpreted. COMPARISON: Comparison to multiple prior studies sequentially, with oldest reviewed study dated 06/28. BREAST PARENCHYMAL COMPOSITION: Not Dense: The breasts are almost entirely fatty. FINDINGS: There is no evidence of suspicious mass, calcification, or architectural distortion to sugg est malignancy in either breast. There has been no suspicious interval change. IMPRESSION: 1. No mammographic evidence of malignancy. 2. Recommend routine screening mammography in one year. BI-RADS Category 1: Negative Reviewed, dictated and finalized at location B. 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
== END 2023-12-26 09:52 | disposition home or self-care (01) ==
LOC: ANHIMG 09:52
PROVIDERS: PCP Internal Medicine; Visit Provider Internal Medicine
DX: Z12.31 Encounter for screening mammogram for malignant neoplasm of breast (principal)
CPT/HCPCS: 77063; 77067

== ENCOUNTER 2024-01-19 02:35 | Inpatient (IN) | payer MEDICARE, SELFPAY ==
[2024-01-19] VITALS (8 sets, daily range): BP systolic 134–169; BP diastolic 60–100; PULSE 62–104; RESP 15–19; TEMP 36.4; O2SAT 97–100; BMI 30.4
--- NOTE | ~2024-01-19 | US_ITS ---
US abdomen limited DATE: 01/19/2024 08:30 INDICATION: Abdominal pain, elevated liver enzymes TECHNIQUE: Real-time imaging of liver, pancreas, gallbladder areas COMPARISON: 01/19/2024 CT abdomen pelvis FINDINGS: No hepatic space-occupying mass lesion is evident. Normal hepatopedal portal venous flow di rection. The common bile duct measures 5 mm, within normal range. No gallbladder wall thickening is noted. No gallstones are identified sonographically. Upon correlati on however with the 01/19/2024 CT abdomen pelvis examination there is suggestion of either a sludge/b ile level or stone/bile level within the dependent aspect of the gallbladder fundus (series 3 images 87-90). Second look ultrasound with attention only to the gallbladder is recommended. If further inve stigation is required, consider radionuclide hepatobiliary scan. IMPRESSION: Sludge or stones are suggested in the dependent aspect of the gallbladder fundus on 01/18 CT abdomen examination, without definite correlate on this ultrasound examination. Consider sec ond look ultrasound with attention specifically to the gallbladder. Reviewed, dictated and finalized at [facility]. Reviewed, dictated and finalized at [facility]. ER HAND IMPRESSION: Sludge or stones are suggested in the dependent aspect of the gallb ladder fundus on 01/19/2024 CT abdomen examination, without definite correlate on this ultrasound examination. Consider second look ultrasound with attention specifically to the gallbladder.
--- NOTE | ~2024-01-19 | CT_ITS ---
EXAMINATION: CT abdomen pelvis w con DATE: 01/19/2024 04:11 INDICATION: Abdominal pain TECHNIQUE: Computed tomography (CT) of the abdomen and pelvis was performed with 100 CC Omnipaque 350 intravenous contrast. Automated exposure control and iterative reconstruction technique were employe d. Exam dose: 942.28 mGy-cm total exam DLP. COMPARISON: 05/21/2023 CT abdomen pelvis 02/10/2019 CT abdomen pelvis FINDINGS: The included lower lung noe are clear. Normal heart size. No pericardial or pleural e ffusion. The liver, gallbladder, bile ducts, pancreas and pancreatic duct are unremarkable. There are multiple splenic calcified granulomas. Superolateral approximately 10 x 14 mm hypoenhancing lesion of the spleen, possibly a cyst or small peripheral infarct. Normal morphology of the adrenal glands. There is chronic very prominent right hydroureteronephrosis and mild right hydroureter, stable since 02/10/2019. No apparent ureteral calculus is detected. There is an approximately 2.5 mm nonobstructing right renal calculus and 4 mm nonobstructing left sonia al calculus. No left hydroureteronephrosis. The urinary bladder is unremarkable. Status post hysterectomy. There is atherosclerotic calcification but normal caliber of the abdominal aorta. No intraperitoneal or retroperitoneal or pelvic mass lesion or adenopathy or ascites. Normal appendix. No bowel obstruction, bowel wall thickening, pneumatosis or intraperitoneal free Small fat-containing umbilical hernia. No suspicious osteolytic or osteoblastic lesions. IMPRESSION: Chronic prominent right hydronephrosis, not significantly changed since 02/10/2019 Chronic small nonobstructing calculus in each kidney, also present on 02/10/2019 Small sliding hiatal hernia Normal appendix Status post hysterectomy Reviewed, dictated and finalized at [facility]. Reviewed, dictated and finalized at [facility]. 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
--- NOTE | ~2024-01-19 | US_ITS ---
EXAMINATION: US abdomen limited DATE: 01/19/2024 16:17 INDICATION: attention to the gallbladder only TECHNIQUE: Multiple grayscale and Doppler ultrasound images of limited portions of the abdomen were o btained. COMPARISON: Ultrasound abdomen and CT abdomen pelvis, same date. FINDINGS: Repeat directed examination of the gallbladder was obtained. Examination limited by body cruz bitus. 7 x 17 mm echogenic, nonshadowing, nonmobile bile focus in the gallbladder fundus. No definite stones, wall thickening, or pericholecystic fluid. There was no sonographic Chow sign, although th is may be confounded by the concurrent use of pain medication. IMPRESSION: 7 x 17 mm sludge ball versus gallbladder polyp. Reviewed, dictated and finalized at [facility]. 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
--- NOTE | 2024-01-19 02:47 | ECG_ITS ---
Test Date: 2024-01-19 02:53:40 Measurements Intervals [place] Rate: 103 P: 51 DC: 160 QRS: 38 QRSD: 83 T: -34 QT: 339 QTc: 445 Interpretive Statements SINUS TACHYCARDIA VOLTAGE CRITERIA FOR LVH BORDERLINE ST-T WAVE ABNORMALITY- ANTEROLAT/INF LEADS BASELINE ARTIFACT- II, III, AVF, V1, V4-V6 BORDERLINE ECG No previous ECG available for comparison Electronically Signed On 01-19-2024 06:30:42 COMMUNITY SERVICES COORDINATOR by Damian Powell D.O.
[2024-01-19] MEDS: ONDANSETRON INJ 4 MG/2 ML VIAL IV PUSH ×5 (03:16→21:36)
[2024-01-19] MEDS: HYDROmorphone HCL INJ (*CRX) 1 MG/ML SYR IV PUSH ×6 (03:16→21:35)
[2024-01-19] MEDS: SODIUM CHLORIDE 0.9% IV 1,000 ML 999 ML IV CONT ×2 (03:17→08:45)
[2024-01-19 03:25] LABS: Basophils Absolute Auto 0.1 K/mm3 (0.0-0.1); Basophils Percent Auto 0.3 % (0.2-1.2); Eosinophils Absolute Auto 0.1 K/mm3 (0-0.3); Eosinophils Percent Auto 0.3 % (0-4.4); Hematocrit 36.4 % (37.0-47.0); Hemoglobin 12.5 g/dL (12.0-15.0); Immature Granulocyte Absolute 0.05 K/mm3 (0.00-0.031); Immature Granulocyte Percent A 0.3 % (0-0.5); Lymphocytes Absolute Auto 1.62 K/mm3 (0.9-3.2); Lymphocytes Percent Auto 9.3 % (18.3-44.2); Mean Corpuscular HGB Conc 34.3 g/dl (32-36); Mean Corpuscular Hemoglobin 30.6 pg (26-34); Mean Platelet Volume 10.7 fl (7.4-10.4); Monocytes Absolute Auto 0.7 K/mm3 (0.1-0.6); Monocytes Percent Auto 4.2 % (2.6-8.5); Neutrophils Percent Auto 85.6 % (45.5-73.1); Platelet Count Result 294 k/mm3 (150-375); Red Blood Count 4.09 M/mm3 (4.2-5.4); Red Cell Distribution Width 12.8 % (11.5-14.5); White Blood Count 17.5 K/mm3 (4.5-10.0)
[2024-01-19 03:38] LABS: Alanine Aminotransferase 107 U/L (6-35); Albumin Level 4.5 g/dL (3.5-5.1); Alkaline Phosphatase 273 U/L (38-126); Anion Gap 9 mmol/L (4-12); Aspartate Amino Transferase 221 U/L (14-36); Bilirubin,Total 1.1 mg/dL (0.2-1.3); Blood Urea Nitrogen 16 mg/dL (7-17); Calcium 9.4 mg/dL (8.4-10.2); Carbon Dioxide 27 mmol/L (22-30); Chloride 103 mmol/L (98-107); Estimated CRCL calculation 71 ml/min; Estimated Glomerular Filt Rate > 60; Glucose 240 mg/dL (65-110); Lipase 133 U/L (23-300); Potassium 4.1 mmol/L (3.4-5.0); Sodium 139 mmol/L (137-145)
[2024-01-19 04:24] LABS: Lactic Acid Reflex 1.6 mmol/L (0.7-2.0)
--- NOTE | 2024-01-19 04:51 | ED_ITS ---
HPI - General Adult General Chief complaint: Abdominal Pain Stated complaint: abdominal pain/ chest pain/ n/v Time Seen by Provider: 01/19/24 02:44 History of Present Illness HPI narrative: patient is a 51-year-old female who presents emergency department with chief complaint of abdominal pain and pain into the chest and back. The patient reports that she has had multiple episodes of nausea vomiting throughout 9:00 p.m. reports that she has pain in the epigastric region the rate use to her back patient also reports that the pain goes up into her chest. Related Data Home Medications Medication Instructions Recorded Confirmed hydrochlorothiazide 12.5 mg tablet 12.5 mg PO DAILY 02/10/19 05/21/23 insulin lispro 100 unit/mL 1 unit subcut ONCE 02/10/19 05/21/23 subcutaneous pen (Humalog KwikPen (U-100) Insulin) lisinopril 40 mg tablet 40 mg PO DAILY 02/10/19 05/21/23 amlodipine 10 mg tablet 10 mg PO DAILY 09/29/22 05/21/23 prochlorperazine maleate 10 mg 10 mg PO DAILY 09/29/22 05/21/23 tablet simvastatin 40 mg tablet 40 mg PO DAILY 09/29/22 05/21/23 Allergies Allergy/AdvReac Type Severity Reaction Status Date / Time amoxicillin Allergy Unknown Rash Verified 01/19/24 02:36 Penicillins Allergy Unknown Rash Verified 01/19/24 02:36 fish oil Allergy Rash Verified 01/19/24 02:36 Review of Systems Review of Systems: A 10 system review of systems was completed on the patient and is negative except for what is stated in the HPI. Nursing and ancillary documentation was reviewed. [facility] Past Medical History Medical History BMI 31.0-31.9,adult Congenital hypertrophy of kidney Diabetes Dyslipidemia Hypertension Surgical History Surgical History H/O: hysterectomy History of transmetatarsal amputation of left foot History of urostomy Family History Family History Mother Diabetes mellitus Father Hypertension Sibling Cerebrovascular accident Other Family history of arthritis Social History Social History Smoking status: Never smoker Alcohol intake: current Drinks per week: 1 Substance use: never Do You Feel Safe in your Home?: Yes Lack of Transportation: No Lack of Food: Never True Current Housing: I Have Housing Concerned About Future Housing: No Difficulty Paying Gas/Electric Bills: No Difficulty Paying for Meds: No Currently Unemployed: No Education: Associate Degree Difficulty w/ Childcare or Family Care: No Gender identity (if verbalized by the patient): Female Spiritual care concerns: No Exam Narrative: GENERAL: uncomfortable-appearing, well-nourished, and in Moderate acute paindistress. HEAD: Normocephalic, atraumatic. EYES: PERRLA and EOMI. ENT: Nares clear, no rhinorrhea or epistaxis. Mucous membranes moist. NECK: Supple. CHEST: Clear to auscultation. No respiratory distress. HEART: Regular rate and rhythm. No murmur heard. Normal peripheral pulses. ABDOMEN: Soft, tenderness to palpation in the epigastric region, nondistended, normal active bowel sounds. EXTREMITIES: Normal range of motion. No edema. SKIN: Warm, dry, no rash. NEURO: No focal deficits. Alert and oriented x3. PSYCH: Normal mood and affect. Course Vital Signs Vital signs: Vital Signs Temperature 36.4 C L 01/19/24 02:40 Pulse Rate 104 H 01/19/24 02:40 Respiratory Rate 16 01/19/24 02:40 Blood Pressure 169/100 H 01/19/24 02:40 Pulse Oximetry 100 01/19/24 02:40 Oxygen Delivery Room Air 01/19/24 02:40 Temperature 36.4 C L 01/19/24 02:40 Pulse Rate 100 01/19/24 05:31 Respiratory Rate 15 01/19/24 05:31 Blood Pressure 154/88 H 01/19/24 05:31 Pulse Oximetry 100 01/19/24 05:31 Oxygen Delivery Room Air 01/19/24 02:40 Medical Decision Making [facility] Narrative Medical decision making narrative: Differential diagnosis includes biliary colic, abdominal pain, intra-abdominal infection, dehydration, pancreatitis laboratory studies were obtained on the patient which showed a white count of 17.5 electrolytes showed a potassium of 4.1 bilirubin was 1.1 AST was elevated at 221 ALT was elevated at 107 alk-phos was elevated magnesium was 1.4 CT scan showed no acute abnormality given the patient does have right upper quadrant pain and elevated liver enzymes plan will be to admit the patient for pain control and a gallbladder ultrasound Vital Signs Vital Signs: Vital Signs Temperature 36.4 C L 01/19/24 02:40 Pulse Rate 104 H 01/19/24 02:40 Respiratory Rate 16 01/19/24 02:40 Blood Pressure 169/100 H 01/19/24 02:40 Pulse Oximetry 100 01/19/24 02:40 Oxygen Delivery Room Air 01/19/24 02:40 Temperature 36.4 C L 01/19/24 02:40 Pulse Rate 100 01/19/24 05:31 Respiratory Rate 15 01/19/24 05:31 Blood Pressure 154/88 H 01/19/24 05:31 Pulse Oximetry 100 01/19/24 05:31 Oxygen Delivery Room Air 01/19/24 02:40 Lab Data 01/19/24 02:48 01/19/24 02:48 Labs: Lab Results 01/19/24 01/19/24 01/19/24 Range/Units 02:48 04:00 04:41 WBC 17.5 H (4.5-10.0) K/mm3 RBC 4.09 L (4.2-5.4) M/mm3 Hgb 12.5 (12.0-15.0) g/dL Hct 36.4 L (37.0-47.0) % MCV 89.0 (80-100) fl MCH 30.6 (26-34) pg MCHC 34.3 (32-36) g/dl RDW 12.8 (11.5-14.5) % Plt Count 294 (150-375) k/mm3 MPV 10.7 H (7.4-10.4) fl Immature Gran % (Auto) 0.3 (0-0.5) % Neut % (Auto) 85.6 H (45.5-73.1) % Lymph % (Auto) 9.3 L (18.3-44.2) % [place] % (Auto) 4.2 (2.6-8.5) % Eos % (Auto) 0.3 (0-4.4) % Baso % (Auto) 0.3 (0.2-1.2) % Lymph # (Auto) 1.62 (0.9-3.2) K/mm3 [place] # (Auto) 0.7 H (0.1-0.6) K/mm3 Eos # (Auto) 0.1 (0-0.3) K/mm3 Baso # (Auto) 0.1 (0.0-0.1) K/mm3 Abs Immat Gran (auto) 0.05 H (0.00-0.031) K/mm3 Absolute Neuts (auto) 15.0 H (1.3-6.7) K/mm3 Absolute Nucleated RBC 0.000 (0.0-0.012) K/mm3 Nucleated RBC % 0.0 (0.0-0.2) % Sodium 139 (137-145) mmol/L Potassium 4.1 (3.4-5.0) mmol/L Chloride 103 (98-107) mmol/L Carbon Dioxide 27 (22-30) mmol/L Anion Gap 9 (4-12) mmol/L BUN 16 (7-17) mg/dL Creatinine 0.90 (0.7-1.0) mg/dL Estim Creat Clear Calc 71 ml/min Estimated GFR > 60 (59 - ) Glucose 240 H (65-110) mg/dL Lactic Acid 1.6 (0.7-2.0) mmol/L Calcium 9.4 (8.4-10.2) mg/dL Magnesium 1.4 L (1.6-2.3) mg/dL Total Bilirubin 1.1 (0.2-1.3) mg/dL AST 221 H (14-36) U/L ALT 107 H (6-35) U/L Alkaline Phosphatase 273 H (38-126) U/L Troponin I < 0.012 (0.000-0.034) ng/mL Total Protein 9.0 H (6.3-8.2) g/dL Albumin 4.5 (3.5-5.1) g/dL Lipase 133 (23-300) U/L Urine Color Yellow (Yellow) Urine Appearance Clear (Clear) Urine pH 7.5 (5.0-9.0) Ur Specific [place] 1.016 (1.001-1.035) Urine Protein 2+ H (Negative) mg/dL Urine Glucose (UA) 1+ H (Negative) mg/dL Urine Ketones Negative (Negative) mg/dL Ur Blood (Man) Negative (Negative) Urine Nitrate Negative (Negative) Urine Bilirubin Negative (Negative) Urine Urobilinogen 1.0 (<2.0) mg/dL Leukocyte Esterase Rfl Negative (Negative) MARINA/UL Urine RBC 0-2 (0-2) /hpf Urine WBC 0-5 (0-3) /hpf Ur Squamous Epith Cells None seen (Few) /hpf Urine Bacteria None seen /hpf Urine Casts 0-2 Discharge Plan Discharge Clinical Impression: Abdominal pain, Elevated liver enzymes Patient Disposition: Still a Patient Condition: Stable Instructions: Antibiotic Form Prescriptions: No Action prochlorperazine maleate 10 mg tablet 10 mg PO DAILY simvastatin 40 mg tablet 40 mg PO DAILY amlodipine 10 mg tablet 10 mg PO DAILY lisinopril 40 mg Tablet 40 mg PO DAILY insulin lispro [Humalog KwikPen Insulin] 100 unit/mL Insulin Pen 1 unit SUBCUT ONCE hydrochlorothiazide 12.5 mg tablet 12.5 mg PO DAILY Follow-up/Referrals: Oj Downey DO [Primary Care Provider] - Time of Disposition: 06:39
[2024-01-19 04:52] LABS: Add Urine Microscopic? YES; Appearance Urine Clear (Clear); Bacteria Urine None Seen /hpf; Bilirubin Urine Negative (Negative); Blood Urine Negative (Negative); Color Urine Yellow (Yellow); Glucose Urine UA 1+ mg/dL (Negative); Ketones Urine Negative (Negative); Leukocyte Esterase Ur Negative LEU/UL (Negative); Nitrate Urine Negative (Negative); Non Pathogenic Casts 0-2; Protein Urine 2+ mg/dL (Negative); RBC Urine 0-2 /hpf (0-2); Specific Grav Ur 1.016 (1.001-1.035); Squamous Epithelial Cell Urine None Seen /hpf (Few); WBC Urine 0-5 /hpf (0-3); pH Urine 7.5 (5.0-9.0)
--- NOTE | 2024-01-19 05:35 | PC.NURSE ---
Multiple attempts at getting Pt/INR blood without success. Ultrasound utilized by certified RN without success. Phlebotomy called and stated they will get to it probably in the morning round.
[2024-01-19 05:52] LABS: Magnesium 1.4 mg/dL (1.6-2.3)
[2024-01-19 06:04] LABS: Troponin I < 0.012 ng/mL (0.000-0.034)
[2024-01-19] MEDS: MAGNESIUM SULF 2 GM/WATER 50ML 2 GM/50 ML BAG IVPB (06:04)
--- NOTE | 2024-01-19 07:55 | P.HP_ITS ---
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 The abdominal pain began yesterday afternoon and she describes it as a severe aching then stabbing pain to her epigastric/RUQ. She also endor sed subjective fever/chills. She originally related her pain to being constipated. She took her linzess and had a large hard stool, but her abdominal pain continued to worsen. She then developed severe nausea and had approximately 10 episodes of nonbloody, nonbilious emesis. Unable to tolerate oral intake. The pain later moved into her chest which she describes as a burning sensation. She has a history of GERD and took an omeprazole without relief. At time of assessment patient continues to endorse severe abdominal pain with associated nausea. She has no other complaints denying chest pain, shortness of breath, palpitations. Spoke with Radiology, Dr. Holt on the phone and he states that he is goign to make an addendum to the the CT as it is concerning for sludge or gallstones in the fundic region. Though this is not seen on the prior US, he suggests repeating the US at this time. ED workup: CBC with leukocytosis 17.5. Lactic 1.6. Chemistry unremarkable. Glucose 240. Troponin negative. LFTs elevated: tot bili 1.1, AST 221, ALT 107, alk phos 273. Lipase WNL. Mg 1.4, repleted in the ED. EKG sinus tachycardia with no signs of ischemia. Urine non concerning for infection. CT abdomen/pelvis: Sludge or stones are suggested in the dependent aspect of the gallbladder fundus on 01/19/2024 CT abdomen examination, without definite correlate on this ultrasound examination. Consider second look ultrasound with attention specifically to the gallbladder. Abdomen US ordered. Review of Systems Review of Systems: All systems reviewed & are unremarkable except as noted in HPI and below PMFSH Past Medical History Medical History BMI 31.0-31.9,adult Congenital hypertrophy of kidney Diabetes Dyslipidemia Hypertension Surgical History Surgical History H/O: hysterectomy History of transmetatarsal amputation of left foot History of urostomy Family History Family History Mother Diabetes mellitus Father Hypertension Sibling Cerebrovascular accident Other Family history of arthritis Social History Social History (Updated 01/19/24 @ 13:48 by Laura Juarez PA-C) Social History: Lives at home with and daughter. No pets. Smoking status: Never smoker Alcohol intake: current Drinks per week: 1 Alcohol use details: occasionally will have a drink socially. Substance use: never Do You Feel Safe in your Home?: Yes Lack of Transportation: No Lack of Food: Never True Current Housing: I Have Housing Concerned About Future Housing: No Difficulty Paying Gas/Electric Bills: No Difficulty Paying for Meds: No Currently Unemployed: No Education: Associate Degree Difficulty w/ Childcare or Family Care: No Gender identity (if verbalized by the patient): Female Spiritual care concerns: No Meds Home Medications and Allergies Home Medications Medication Instructions Recorded Confirmed Type hydrochlorothiazide 12.5 mg tablet 12.5 mg PO DAILY 02/10/19 01/19/24 History insulin lispro 100 unit/mL 1 unit subcut ONCE 02/10/19 01/19/24 History subcutaneous pen (Humalog KwikPen (U-100) Insulin) lisinopril 40 mg tablet 40 mg PO DAILY 02/10/19 01/19/24 History amlodipine 10 mg tablet 10 mg PO DAILY 09/29/22 01/19/24 History prochlorperazine maleate 10 mg 10 mg PO DAILY PRN Indigestion 09/29/22 01/19/24 History tablet (Compazine) simvastatin 40 mg tablet 40 mg PO DAILY 09/29/22 01/19/24 History linaclotide 145 mcg capsule 145 mcg PO DAILY 01/19/24 01/19/24 History (Linzess) semaglutide 1 mg/dose (4 mg/3 mL) 1 mg subcut WEEKLY 01/19/24 01/19/24 History subcutaneous pen injector (Ozempic) tretinoin 0.05 % topical cream 1 applic topical DAILY PRN Rash 01/19/24 01/19/24 History Allergies Allergy/AdvReac Type Severity Reaction Status Date / Time amoxicillin Allergy Unknown Rash Verified 01/19/24 02:36 Penicillins Allergy Unknown Rash Verified 01/19/24 02:36 fish oil Allergy Rash Verified 01/19/24 02:36 Vital Signs Vital Signs - 24 hr 01/19/24 02:40 01/19/24 04:29 01/19/24 05:31 Temperature 97.5 F L Pulse Rate 104 H 100 100 Respiratory Rate 16 16 15 Blood Pressure 169/100 H 162/92 H 154/88 H Pulse Oximetry 100 100 100 Oxygen Delivery Room Air 01/19/24 07:12 Temperature Pulse Rate 94 Respiratory Rate 19 Blood Pressure 134/81 Pulse Oximetry 100 Oxygen Delivery Exam Narrative: AF HR 87 RR 16 SPO2 100 BP 139/74 General: female in no acute respiratory distress who is nontoxic appearing, lying semi recumbent in bed. HEENT: Normocephalic. Atraumatic. Extraocular movement intact. Sclera clear and anicteric. No facial asymmetry. Neck: Neck was supple. No dominant adenopathy, thyromegaly or masses. Chest: Lungs are clear to auscultation bilaterlly. No wheezes or crackles. CV: Heart was regular rate and rhythm. S1-S2. No murmurs, gallops, or rubs. Abd: Abdomen was soft. Tender to the RUQ. Nondistended. Positive bowel sounds. Ext: No clubbing, cyanosis, or edema. 2+ DP pulses bilaterally. Neuro: Patient is alert and oriented x4. Strength is 5/5 in both upper and lower extremities. Cranial nerves 2-12 are intact. Speech is clear. Psych: Normal mood and affect. Patient is pleasant and cooperative. Skin: Warm and dry. No rashes noted. H&P: Results Labs Labs: Short CBC 01/19/24 Range/Units 02:48 WBC 17.5 H (4.5-10.0) K/mm3 Hgb 12.5 (12.0-15.0) g/dL Hct 36.4 L (37.0-47.0) % Plt Count 294 (150-375) k/mm3 [facility] 01/19/24 02:48 Sodium 139 Potassium 4.1 Chloride 103 Carbon Dioxide 27 BUN 16 Creatinine 0.90 Glucose 240 H Calcium 9.4 Cardiac Enzymes 01/19/24 Range/Units 02:48 Troponin I < 0.012 (0.000-0.034) ng/mL Liver Function 01/19/24 Range/Units 02:48 Total Bilirubin 1.1 (0.2-1.3) mg/dL AST 221 H (14-36) U/L ALT 107 H (6-35) U/L Alkaline Phosphatase 273 H (38-126) U/L Albumin 4.5 (3.5-5.1) g/dL Urine 01/19/24 Range/Units 04:41 Urine Color Yellow (Yellow) Urine Appearance Clear (Clear) Urine pH 7.5 (5.0-9.0) Ur Specific [place] 1.016 (1.001-1.035) Urine Protein 2+ H (Negative) mg/dL Urine Glucose (UA) 1+ H (Negative) mg/dL Assessment and Plan Assessment and plan (1) Sepsis: Code(s): A41.9 - Sepsis, unspecified organism Status: Acute Assessment and Plan: Meets SIRS criteria: HR and leukocytosis - lactic acid WNL - 1 L sepsis bolus given - suspected source: gallbladder - blood cultures drawn on 01/18: pending - UA non concerning for infection - CT abdomen/pelvis: There is suggestion of either a sludge/bile level or gallstone/bile level within the fundus of the gallbladder (series 3 images 87- 90). (2) Abdominal pain: Code(s): R10.9 - Unspecified abdominal pain Status: Acute Assessment and Plan: Suspect cholecystitis - LFTs elevated: tot bili 1.1, AST 221, ALT 107, alk phos 273. Lipase WNL. - CT abdomen/pelvis: There is suggestion of either a sludge/bile level or gallstone/bile level within the fundus of the gallbladder (series 3 images 87- 90). - Abdomen US: Sludge or stones are suggested in the dependent aspect of the gallbladder fundus on 01/19/2024 CT abdomen examination, without definite correlate on this ultrasound examination. Consider second look ultrasound with attention specifically to the gallbladder. - Repeat US ordered - Analgesics - Antibiotics: Cipro and flagyl started on 01/18 - Diet: clear liquid diet, NPO at midnight - Monitor vital signs, I and O's, check stool output, neuro status and patient is a fall risk - Monitor serum electrolytes and CBC - Monitor lactic acid - GI consulted, appreciate recommendations (3) Elevated liver enzymes: Code(s): R74.8 - Abnormal levels of other serum enzymes Status: Acute Assessment and Plan: LFTs elevated: tot bili 1.1, AST 221, ALT 107, alk phos [address] on admission. - CT abdomen/pelvis: There is suggestion of either a sludge/bile level or gallstone/bile level within the fundus of the gallbladder (series 3 images 87-90). - Abdomen US: Sludge or stones are suggested in the dependent aspect of the gallbladder fundus on 01/19/2024 CT abdomen examination, without definite correlate on this ultrasound examination. Consider second look ultrasound with attention specifically to the gallbladder. - Repeat US ordered - Holding simvastatin, resume when appropriate - Monitor on daily labs - GI consulted, appreciate recommendations (4) Diabetes: Code(s): E11.9 - Type 2 diabetes mellitus without complications Status: Chronic Assessment and Plan: - hypoglycemia protocol - POC blood glucose ACHS - home medication - lispro 65 units in the am and 55 units in the pm and ozempic - correct regimen ordered - SSI TIDWM, will likely need to resume lispro dosing however patient has been NPO pending imaging. - A1C 7.8 (5) Hypertension: Code(s): I10 - Essential (primary) hypertension Status: Chronic Assessment and Plan: Chronic, continue home medications. - amlodipine 10 mg daily - lisinopril 40 mg daily - HCTZ 12.5 mg daily - Monitor (6) Hydronephrosis, right: Code(s): N13.30 - Unspecified hydronephrosis Status: Acute Assessment and Plan: CT abdomen/pelvis: Chronic prominent right hydronephrosis, not significantly changed since 02/10/2019 Chronic small nonobstructing calculus in each kidney, also present on 02/10/2019 Quality VTE Prophylaxis VTE prophylaxis: mechanical ordered Hospitalist [facility] Advance Care Plan I have confirmed that the patient's Advanced Care Plan is present, code status is documented, or surrogate decision maker is listed in patient medical record.: Yes Medication Reconciliation I have utilized all available resources to obtain, update and review the patients current medications (includes all prescriptions, OTC, herbals, cannabis, and nutritional supplements).: Yes
[2024-01-19] MEDS: PANTOPRAZOLE SODIUM IV 40 MG VIAL IV PUSH (08:46)
[2024-01-19] MEDS: metroNIDAZOLE 500 MG/ISO 100ML 500 MG/100 ML BAG 100 MG IVPB ×3 (08:46→21:35)
[2024-01-19 11:52] LABS: Prothrombin Time 13.4 Seconds (11.1-14.7)
[2024-01-19 12:00] LABS: Troponin I < 0.012 ng/mL (0.000-0.034)
[2024-01-19] MEDS: CIPROFLOXACIN 400 MG/D5W 200ML 200 ML 200 MG IVPB ×2 (13:20→20:27)
[2024-01-19 14:33] LABS: Hemoglobin A1C 7.8 % (<5.7)
[2024-01-19 17:01] LABS: Glucose Point of Care 153 mg/dl (65-105)
[2024-01-19] MEDS: DOCUSATE SODIUM 100 MG CAPSULE PO (17:08)
[2024-01-19 21:18] LABS: Glucose Point of Care 165 mg/dl (65-105)
[2024-01-20] VITALS (15 sets, daily range): BP systolic 88–171; BP diastolic 42–80; PULSE 85–99; RESP 10–20; TEMP 36.4–36.6; O2SAT 95–100
[2024-01-20 05:10] LABS: Basophils Percent Auto 0.4 % (0.2-1.2); Eosinophils Absolute Auto 0.1 K/mm3 (0-0.3); Eosinophils Percent Auto 1.3 % (0-4.4); Hematocrit 34.2 % (37.0-47.0); Hemoglobin 11.3 g/dL (12.0-15.0); Immature Granulocyte Absolute 0.03 K/mm3 (0.00-0.031); Immature Granulocyte Percent A 0.3 % (0-0.5); Lymphocytes Absolute Auto 2.47 K/mm3 (0.9-3.2); Lymphocytes Percent Auto 25.5 % (18.3-44.2); Mean Corpuscular Hemoglobin 29.8 pg (26-34); Mean Corpuscular Volume 90.2 fl (80-100); Mean Platelet Volume 10.9 fl (7.4-10.4); Monocytes Absolute Auto 0.5 K/mm3 (0.1-0.6); Monocytes Percent Auto 4.9 % (2.6-8.5); Neutrophils Absolute Auto 6.6 K/mm3 (1.3-6.7); Neutrophils Percent Auto 67.6 % (45.5-73.1); Platelet Count Result 283 k/mm3 (150-375); Red Blood Count 3.79 M/mm3 (4.2-5.4); Red Cell Distribution Width 13.2 % (11.5-14.5); White Blood Count 9.7 K/mm3 (4.5-10.0)
[2024-01-20 05:27] LABS: Alanine Aminotransferase 79 U/L (6-35); Albumin Level 4.1 g/dL (3.5-5.1); Alkaline Phosphatase 181 U/L (38-126); Anion Gap 6 mmol/L (4-12); Aspartate Amino Transferase 60 U/L (14-36); Bilirubin,Total 0.8 mg/dL (0.2-1.3); Blood Urea Nitrogen 13 mg/dL (7-17); Calcium 8.8 mg/dL (8.4-10.2); Carbon Dioxide 30 mmol/L (22-30); Chloride 104 mmol/L (98-107); Estimated CRCL calculation 64 ml/min; Estimated Glomerular Filt Rate > 60; Glucose 120 mg/dL (65-110); Potassium 3.6 mmol/L (3.4-5.0); Sodium 140 mmol/L (137-145)
[2024-01-20] MEDS: metroNIDAZOLE 500 MG/ISO 100ML 500 MG/100 ML BAG 100 MG IVPB (06:02)
[2024-01-20 08:03] LABS: Glucose Point of Care 133 mg/dl (65-105)
--- NOTE | 2024-01-20 08:14 | PM.IMPN ---
Progress Note: A&P Assessment and Plan (1) Sepsis: Code(s): A41.9 - Sepsis, unspecified organism Status: Acute Assessment and Plan: Meets SIRS criteria: HR and leukocytosis - lactic acid WNL - 1 L sepsis bolus given - suspected source: gallbladder - blood cultures drawn on 01/18: prelim. negative - UA non concerning for infection - CT abdomen/pelvis: There is suggestion of either a sludge/bile level or gallstone/bile level within the fundus of the gallbladder (series 3 images 87-90). - vitals reviewed- hypotensive this am. but no fever- very likely due to npo and no iv fluids and pain meds. Improved with 500 ml bolus (2) Abdominal pain: Code(s): R10.9 - Unspecified abdominal pain Status: Acute Assessment and Plan: Suspect cholecystitis - LFTs elevated: tot bili 1.1, AST 221, ALT 107, alk phos 273. Lipase WNL. - CT abdomen/pelvis: There is suggestion of either a sludge/bile level or gallstone/bile level within the fundus of the gallbladder (series 3 images 87-90). - Abdomen US: Sludge or stones are suggested in the dependent aspect of the gallbladder fundus on 01/19/2024 CT abdomen examination, without definite correlate on this ultrasound examination. Consider second look ultrasound with attention specifically to the gallbladder. - Repeat US ordered - Analgesics - Antibiotics: Cipro and flagyl started on 01/18 - Diet: clear liquid diet, NPO at midnight - Monitor vital signs, I and O's, check stool output, neuro status and patient is a fall risk - Monitor serum electrolytes and CBC - Monitor lactic acid - GI consulted, appreciate recommendations 01/19- npo (3) Elevated liver enzymes: Code(s): R74.8 - Abnormal levels of other serum enzymes Status: Acute Assessment and Plan: LFTs elevated: tot bili 1.1, AST 221, ALT 107, alk phos 273 on admission. - CT abdomen/pelvis: There is suggestion of either a sludge/bile level or gallstone/bile level within the fundus of the gallbladder (series 3 images 87-90). - Abdomen US: Sludge or stones are suggested in the dependent aspect of the gallbladder fundus on 01/19/2024 CT abdomen examination, without definite correlate on this ultrasound examination. Consider second look ultrasound with attention specifically to the gallbladder. - Repeat US ordered - Holding simvastatin, resume when appropriate - Monitor on daily labs - GI consulted, appreciate recommendations (4) Diabetes: Code(s): E11.9 - Type 2 diabetes mellitus without complications Status: Chronic Assessment and Plan: - hypoglycemia protocol - POC blood glucose ACHS - home medication - lispro 65 units in the am and 55 units in the pm and ozempic - correct regimen ordered - SSI TIDWM, will likely need to resume lispro dosing however patient has been NPO pending imaging. - A1C 7.8 (5) Hypertension: Code(s): I10 - Essential (primary) hypertension Status: Chronic Assessment and Plan: Chronic, continue home medications. 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 Pt is on Cipro/Flagyl. BC pending. GI consulted. NPO 01/19- hypotensive this am but improved with iv fluids. Review of Systems Review of Systems: All systems reviewed & are unremarkable except as noted in HPI and below Exam Narrative: General: female in no acute respiratory distress who is nontoxic appearing, lying semi recumbent in bed. HEENT: Normocephalic. Atraumatic. Extraocular movement intact. Sclera clear and anicteric. No facial asymmetry. Neck: Neck was supple. No dominant adenopathy, thyromegaly or masses. Chest: Lungs are clear to auscultation bilaterlly. No wheezes or crackles. CV: Heart was regular rate and rhythm. S1-S2. No murmurs, gallops, or rubs. Abd: Abdomen was soft. Tender to the RUQ. Nondistended. Positive bowel sounds. Ext: No clubbing, cyanosis, or edema. 2+ DP pulses bilaterally. Neuro: Patient is alert and oriented x4. Strength is 5/5 in both upper and lower extremities. Cranial nerves 2-12 are intact. Speech is clear. Psych: Normal mood and affect. Patient is pleasant and cooperative. Skin: Warm and dry. No rashes noted. Const: General: comfortable Objective Data Vital Signs Vital Signs: Vital Signs - 24 hr 01/19/24 08:45 01/19/24 13:30 01/19/24 16:00 Temperature 97.6 F 97.6 F Pulse Rate 87 89 Respiratory Rate 16 17 Blood Pressure 139/74 138/72 Pulse Oximetry 100 100 Oxygen Delivery Room Air 01/19/24 22:15 01/20/24 05:57 Temperature 97.6 F 98 F Pulse Rate 84 85 Respiratory Rate 18 16 Blood Pressure 137/60 106/55 L Pulse Oximetry 100 100 Oxygen Delivery Intake/Output Intake/Output: Intake & Output 01/17/24 01/18/24 01/19/24 01/20/24 23:59 23:59 23:59 23:59 Intake Total 1550 300 Output Total 100 Balance 1450 300 Meds/Results Medications: Active Medications Generic Name Dose Route Start Last Admin Trade Name Freq PRN Reason Stop Dose Admin Acetaminophen 650 mg 01/19/24 06:39 Acetaminophen 325 Mg Tablet PO Q4H PRN Mild Pain (1-3) or Fever Amlodipine Besylate 10 mg 01/20/24 09:00 Amlodipine Besylate 10 Mg Tablet PO DAILY SARAH Dextrose 12.5 gm 01/19/24 13:54 Dextrose 50% 25 Gm/50 Ml Syringe IV PUSH PRN PRN Hypoglycemia Protocol Docusate Sodium 100 mg 01/19/24 17:00 01/19/24 17:08 Docusate Sodium 100 Mg Capsule PO 100 mg BID SARAH Administration Glucagon 1 mg 01/19/24 13:54 Glucagon For Inj 1 Mg Vial IM PRN PRN Hypoglycemia Protocol Glucose 15 gm 01/19/24 13:54 Glucose Oral Gel 15 Gm Of Glucse In 37.5 Gm Tube PO PRN PRN Hypoglycemia Protocol Hydrochlorothiazide 12.5 mg 01/20/24 09:00 Hydrochlorothiazide 12.5 Mg Capsule PO DAILY SARAH Hydromorphone HCl 1 mg 01/19/24 06:39 01/19/24 21:35 Hydromorphone Hcl Inj (*Crx) 1 Mg/Ml Syr IV PUSH 1 mg Q4H PRN Administration Pain Rated 7-10 Metronidazole 500 mg in 100 mls @ 100 mls/hr 01/19/24 15:00 01/20/24 07:07 Flagyl 500 Mg/Iso Soln 100 Ml IVPB Infused Q8HR SARAH Infusion Ciprofloxacin/Dextrose 200 mls @ 200 mls/hr 01/19/24 21:00 01/19/24 21:29 Cipro 400 Mg/D5w 200 Ml IVPB Infused Q12H SARAH Infusion Dextrose 1,000 mls @ 100 mls/hr 01/19/24 13:54 Dextrose 5% 1,000 Ml IVPB PRN PRN Hypoglycemia Protocol Insulin Aspart 2 - 5 units 01/19/24 17:00 01/20/24 08:09 Insulin Aspart (*Bkc) 100 Units/Ml SUB-Q Not Given TIDWM [facility] Protocol Lisinopril 40 mg 01/20/24 09:00 Lisinopril 20 Mg Tablet PO DAILY SARHA Ondansetron HCl 4 mg 01/19/24 06:39 01/19/24 21:36 Ondansetron Inj 4 Mg/2 Ml Vial IV PUSH 4 mg Q4H PRN Administration Nausea Pantoprazole Sodium 40 mg 01/19/24 09:00 01/19/24 08:46 Pantoprazole Sodium Iv 40 Mg Vial IV PUSH 40 mg QAM SARAH Administration Radiology Results: ITS Impressions Abdomen/Pelvis CT 01/19/24 07:45 IMPRESSION: Chronic prominent right hydronephrosis, not significantly changed since 02/10/2019 Chronic small nonobstructing calculus in each kidney, also present on 02/10/2019 Small sliding hiatal hernia Normal appendix Status post hysterectomy ADDENDUM: 01/19/24 1346 Addendum: There is suggestion of either a sludge/bile level or gallstone/bile level within the fundus of the gallbladder (series 3 images 87-90). IMPRESSION: Gallstones or sludge suggested in the gallbladder fundus Abdomen Ultrasound 01/19/24 16:31 IMPRESSION: 7 x 17 mm sludge ball versus gallbladder polyp. Labs Labs: Laboratory Results - last 24 hr 01/19/24 01/19/24 01/19/24 02:48 11:33 16:57 WBC RBC Hgb Hct MCV MCH MCHC RDW Plt Count MPV Immature Gran % (Auto) Neut % (Auto) Lymph % (Auto) Villalba % (Auto) Eos % (Auto) Baso % (Auto) Lymph # (Auto) Villalba # (Auto) Eos # (Auto) Baso # (Auto) Abs Immat Gran (auto) Absolute Neuts (auto) Absolute Nucleated RBC Nucleated RBC % PT 13.4 INR 1.0 APTT 26.0 Sodium Potassium Chloride Carbon Dioxide Anion Gap BUN Creatinine Estim Creat Clear Calc Estimated GFR Glucose POC Capillary Glucose 153 H Hemoglobin A1c 7.8 H Calcium Total Bilirubin AST ALT Alkaline Phosphatase Troponin I < 0.012 Total Protein Albumin 01/19/24 01/20/24 01/20/24 21:04 04:30 07:58 WBC 9.7 RBC 3.79 L Hgb 11.3 L Hct 34.2 L MCV 90.2 MCH 29.8 MCHC 33.0 RDW 13.2 Plt Count 283 MPV 10.9 H Immature Gran % (Auto) 0.3 Neut % (Auto) 67.6 Lymph % (Auto) 25.5 Villalba % (Auto) 4.9 Eos % (Auto) 1.3 Baso % (Auto) 0.4 Lymph # (Auto) 2.47 Villalba # (Auto) 0.5 Eos # (Auto) 0.1 Baso # (Auto) 0.0 Abs Immat Gran (auto) 0.03 Absolute Neuts (auto) 6.6 Absolute Nucleated RBC 0.000 Nucleated RBC % 0.0 PT INR APTT Sodium 140 Potassium 3.6 Chloride 104 Carbon Dioxide 30 Anion Gap 6 BUN 13 Creatinine 1.00 Estim Creat Clear Calc 64 Estimated GFR > 60 Glucose 120 H POC Capillary Glucose 165 H 133 H Hemoglobin A1c Calcium 8.8 Total Bilirubin 0.8 AST 60 H ALT 79 H Alkaline Phosphatase 181 H Troponin I Total Protein 8.0 Albumin 4.1 Quality VTE Prophylaxis VTE prophylaxis: mechanical ordered
[2024-01-20] MEDS: PANTOPRAZOLE SODIUM IV 40 MG VIAL IV PUSH (09:03)
[2024-01-20] MEDS: CIPROFLOXACIN 400 MG/D5W 200ML 200 ML 150 MG IVPB (09:04)
[2024-01-20] MEDS: ONDANSETRON INJ 4 MG/2 ML VIAL IV PUSH ×2 (09:18→20:52)
[2024-01-20] MEDS: HYDROmorphone HCL INJ (*CRX) 1 MG/ML SYR IV PUSH ×3 (09:25→20:53)
--- NOTE | 2024-01-20 09:50 | WPDCN ---
Assessment and Plan Assessment and plan (1) Cholecystitis with cholelithiasis: Code(s): K80.10 - Calculus of gallbladder with chronic cholecystitis without obstruction Status: Acute Assessment and Plan: Patient has had symptoms of cholecystitis. This may be more chronic nature with a mild acute exacerbation. Large gallstone not noted in the gallbladder however sludge or very small gallstones versus gallbladder polyp is seen on the gallbladder ultrasound. I discussed proceeding with a laparoscopic cholecystectomy possible conversion open cholecystectomy today. Patient is agreeable to proceeding with surgery. Risks, benefits, indications, and expected outcomes were discussed with the patient and/or family members. Specific risks to include bleeding and possible need for blood transfusion, infection, bile leak, injury to other organs, common bile duct injury, and conversion to open cholecystectomy has been discussed. I have answered all their questions and they agreed to proceed with surgery as outlined above. HPI Data of Consult Date/Time: 01/20/24 09:50 Requesting Physician: Kaylee Casas DO Primary Care Provider: Oj Downey DO Consult Narrative Reason for consult: Right upper quadrant abdominal pain. Cholelithiasis. Cholecystitis. Narrative: Lena Mcneal is a 53 year old female who has been having some right upper quadrant abdominal pain for the past several weeks. It became very severe yesterday and was associated with nausea. She will work in the emergency room which showed white blood count 25635. Mild elevation of her LFTs were noted. Today the white blood count is now normal. And LFTs are stable. Total bilirubin is 0.8. Imaging by CT scanner CT showed a dilated gallbladder with possible gallstones. Ultrasound showed gallbladder sludge versus very small gallstones. Common bile duct appeared to be normal. Patient was admitted to the hospital for IV antibiotics surgical evaluation. Today the patient is still having pain. She does not have acute surgical abdomen on palpation but she is back tender cylinder in the right upper quadrant. White blood count is normal today. Liver enzymes are not appreciably elevated. Patient complains more constipation rather than any stool urgency or diarrhea after eating. She is an insulin-dependent diabetic and her last hemoglobin A1c by her history is around 8. He also has hypertension. Previous abdominal surgeries have included a laparoscopic assisted hysterectomy. Review of Systems Review of Systems: The remainder of the review of systems to include constitutional, HEENT, cardiovascular, respiratory, GI, , integumentary, musculoskeletal, endocrine, immunologic, hematologic, psychiatric, and neurologic are all negative except for which is mentioned above in the HPI. [facility] Past Medical History Medical History BMI 31.0-31.9,adult Congenital hypertrophy of kidney Diabetes Dyslipidemia Hypertension Surgical History Surgical History H/O: hysterectomy History of transmetatarsal amputation of left foot History of urostomy Family History Family History Mother Diabetes mellitus Father Hypertension Sibling Cerebrovascular accident Other Family history of arthritis Social History Social History Social History: Lives at home with and daughter. No pets. Smoking status: Never smoker Alcohol intake: current Drinks per week: 1 Alcohol use details: occasionally will have a drink socially. Substance use: never Do You Feel Safe in your Home?: Yes Lack of Transportation: No Lack of Food: Never True Current Housing: I Have Housing Concerned About Future Housing: No Difficulty Paying Gas/Electric Bills: No Difficulty Paying for Meds: No Currently Unemployed: No Education: Associate Degree Difficulty w/ Childcare or Family Care: No Gender identity (if verbalized by the patient): Female Spiritual care concerns: No Meds Home Medications and Allergies Home Medications Medication Instructions Recorded Confirmed Type hydrochlorothiazide 12.5 mg tablet 12.5 mg PO DAILY 02/10/19 01/19/24 History insulin lispro 100 unit/mL 1 unit subcut ONCE 02/10/19 01/19/24 History subcutaneous pen (Humalog KwikPen (U-100) Insulin) lisinopril 40 mg tablet 40 mg PO DAILY 02/10/19 01/19/24 History amlodipine 10 mg tablet 10 mg PO DAILY 09/29/22 01/19/24 History prochlorperazine maleate 10 mg 10 mg PO DAILY PRN Indigestion 09/29/22 01/19/24 History tablet (Compazine) simvastatin 40 mg tablet 40 mg PO DAILY 09/29/22 01/19/24 History linaclotide 145 mcg capsule 145 mcg PO DAILY 01/19/24 01/19/24 History (Linzess) semaglutide 1 mg/dose (4 mg/3 mL) 1 mg subcut WEEKLY 01/19/24 01/19/24 History subcutaneous pen injector (Ozempic) tretinoin 0.05 % topical cream 1 applic topical DAILY PRN Rash 01/19/24 01/19/24 History Allergies Allergy/AdvReac Type Severity Reaction Status Date / Time amoxicillin Allergy Unknown Rash Verified 01/19/24 02:36 Penicillins Allergy Unknown Rash Verified 01/19/24 02:36 fish oil Allergy Rash Verified 01/19/24 02:36 Vital Signs Vital Signs - 24 hr 01/19/24 13:30 01/19/24 16:00 01/19/24 22:15 Temperature 36.4 C 36.4 C Pulse Rate 89 84 Respiratory Rate 17 18 Blood Pressure 138/72 137/60 Pulse Oximetry 100 100 Oxygen Delivery Room Air Fraction of Inspired Oxygen 01/20/24 05:57 01/20/24 09:12 Temperature 36.6 C Pulse Rate 85 Respiratory Rate 16 Blood Pressure 106/55 L Pulse Oximetry 100 99 Oxygen Delivery Room Air Fraction of Inspired Oxygen 21 Exam Const: General: comfortable and no acute distress HENMT: Ears: TM's normal bilaterally Face/Nose/Sinus: Normal nares present Mouth: Yes moist mucous membranes Eyes: General: appearance normal, both eyes and all related structures Sclera: sclerae normal (No scleral icterus) Pupils: Equal, round and reactive pupils present EOM: EOMs intact bilaterally Neck: Neck: supple and no JVD Resp: Effort & Inspection: normal respiratory effort Auscultation: clear to auscultation bilaterally Cardio: Rate: regular rate Rhythm: regular rhythm GI: Other: Abdomen is obese but soft. Nondistended. Mild to moderate tenderness to palpation right upper quadrant of the area the gallbladder. Gallbladder is not palpable. No ventral hernias are noted. No masses are appreciated. Skin: General skin exam: normal color and no rashes or lesions noted Neuro: General: gait normal Speech: normal speech Motor exam (neuro): 5/5 motor strength present throughout Sensory Exam: normal sensation Extrem: General: normal to inspection Psych: Mental Status: mental status grossly normal Affect: normal affect Results Labs 01/20/24 04:30 01/20/24 04:30 Labs: Short CBC 01/20/24 Range/Units 04:30 WBC 9.7 (4.5-10.0) K/mm3 Hgb 11.3 L (12.0-15.0) g/dL Hct 34.2 L (37.0-47.0) % Plt Count 283 (150-375) k/mm3 BMP 01/20/24 04:30 Sodium 140 Potassium 3.6 Chloride 104 Carbon Dioxide 30 BUN 13 Creatinine 1.00 Glucose 120 H Calcium 8.8 Cardiac Enzymes 01/19/24 Range/Units 11:33 Troponin I < 0.012 (0.000-0.034) ng/mL Liver Function 01/20/24 Range/Units 04:30 Total Bilirubin 0.8 (0.2-1.3) mg/dL AST 60 H (14-36) U/L ALT 79 H (6-35) U/L Alkaline Phosphatase 181 H (38-126) U/L Albumin 4.1 (3.5-5.1) g/dL Imaging Radiologist's impression: CT Scan Report Signed with Addenda Patient: Lena Mcneal : 1970 MR#: [id number] Age: 53 Acct:[id number] Loc: [id number] 251-01 ADM Date: 01/19/24Attending Dr: Kaylee Casas D.O. Ordering Physician: Kenan Gómez MD Date of Service: 01/19/24 Procedure(s): CT abdomen pelvis w con Accession Number(s): [id number] cc: Kaylee Casas DO; Kenan Gómez MD; Oj Downey DO~ ADDENDUMAddendum: There is suggestion of either a sludge/bile level or gallstone/bile level within the fundus of the gallbladder (series 3 images 87-90). IMPRESSION: Gallstones or sludge suggested in the gallbladder fundus [facility] Addendum Dictated By: Benjamin Holt MD Addendum Signed By: <Electronically signed by Benjamin Holt MD in OV> 01/19/241343 Addendum Cosigned By: DD/ TD/TT: / EXAMINATION: CT abdomen pelvis w con DATE: 01/19/2024 04:11 INDICATION: Abdominal pain TECHNIQUE: Computed tomography (CT) of the abdomen and pelvis was performed with 100 CC Omnipaque 350 intravenous contrast. Automated exposure control and iterative reconstruction technique were employed. Exam dose: 942.28 mGy-cm total exam DLP. COMPARISON: 05/21/2023 CT abdomen pelvis 02/10/2019 CT abdomen pelvis FINDINGS: The included lower lung noe are clear. Normal heart size. No pericardial or pleural effusion. The liver, gallbladder, bile ducts, pancreas and pancreatic duct are unremarkable. There are multiple splenic calcified granulomas. Superolateral approximately 10 x 14 mm hypoenhancing lesion of the spleen, possibly a cyst or small peripheral infarct. Normal morphology of the adrenal glands. There is chronic very prominent right hydroureteronephrosis and mild right hydroureter, stable since 02/10/2019. No apparent ureteral calculus is detected. There is an approximately 2.5 mm nonobstructing right renal calculus and 4 mm nonobstructing left renal calculus. No left hydroureteronephrosis. The urinary bladder is unremarkable. Status post hysterectomy. There is atherosclerotic calcification but normal caliber of the abdominal aorta. No intraperitoneal or retroperitoneal or pelvic mass lesion or adenopathy or ascites. Normal appendix. No bowel obstruction, bowel wall thickening, pneumatosis or intraperitoneal free Small fat-containing umbilical hernia. No suspicious osteolytic or osteoblastic lesions. IMPRESSION: Chronic prominent right hydronephrosis, not significantly changed since 02/10/2019 Chronic small nonobstructing calculus in each kidney, also present on 02/10/2019 Small sliding hiatal hernia Normal appendix Status post hysterectomy Reviewed, dictated and finalized at [facility]. Reviewed, dictated and finalized at [facility]. [facility] Ultrasound Report Signed Patient: Lena Mcneal : 1970 MR#: [id number] Age: 53 Acct:[id number] Loc: [id number] 251-01 ADM Date: 01/19/24Attending Dr: Kaylee Casas D.O. Ordering Physician: Laura Juarez Date of Service: 01/19/24 Procedure(s): US abdomen limited Accession Number(s): [id number] cc: Kaylee Casas DO; Laura Juarez; Oj Downey DO~ EXAMINATION: US abdomen limited DATE: 01/19/2024 16:17 INDICATION: attention to the gallbladder only TECHNIQUE: Multiple grayscale and Doppler ultrasound images of limited portions of the abdomen were obtained. COMPARISON: Ultrasound abdomen and CT abdomen pelvis, same date. FINDINGS: Repeat directed examination of the gallbladder was obtained. Examination limited by body habitus. 7 x 17 mm echogenic, nonshadowing, nonmobile bile focus in the gallbladder fundus. No definite stones, wall thickening, or pericholecystic fluid. There was no sonographic Chow sign, although this may be confounded by the concurrent use of pain medication. IMPRESSION: 7 x 17 mm sludge ball versus gallbladder polyp. Reviewed, dictated and finalized at [facility]. [facility]
--- NOTE | 2024-01-20 09:58 | WPDHPUPDATE1 ---
History and Physical Update Update Date/Time: 01/20/24 09:58 History and Physical has been reviewed, including an updated exam of the patient. There are NO changes in the patient's condition. Risks, benefits, and alternatives have been discussed and questions answered. Patient agrees to proceed with procedure.
[2024-01-20] MEDS: LACTATED RINGERS 1,000 ML 999 ML IV CONT (10:31)
[2024-01-20 10:40] LABS: Glucose Point of Care 155 mg/dl (65-105)
--- NOTE | 2024-01-20 11:31 | P.PNAN_ITS ---
Anes - Initial Pre Proc Eval Procedure: Operation Date: 01/20/24 12:30 Proposed Procedures p Laparoscopic Cholecystectomy - Live Alvarado MD Date/Time: 01/20/24 11:31 Surgeon: Kaylee Casas DO Pre Op Diagnosis: abdominal pain, elevated liver enzymes, leukocytos Patient Data Age: 53 Gender: F Height: 1.68 m Weight: 85.5 kg Last Vital Signs Temp 36.6 C 01/20/24 05:57 Pulse 85 01/20/24 05:57 Resp 16 01/20/24 05:57 BP 122/80 01/20/24 10:35 Pulse Ox 99 01/20/24 09:12 O2 Del Method Room Air 01/20/24 09:12 FiO2 21 01/20/24 09:12 Allergies Allergy/AdvReac Type Severity Reaction Status Date / Time amoxicillin Allergy Unknown Rash Verified 01/19/24 02:36 Penicillins Allergy Unknown Rash Verified 01/19/24 02:36 fish oil Allergy Rash Verified 01/19/24 02:36 Home Medications Medication Instructions Recorded Confirmed Type hydrochlorothiazide 12.5 mg tablet 12.5 mg PO DAILY 02/10/19 01/19/24 History insulin lispro 100 unit/mL 1 unit subcut ONCE 02/10/19 01/19/24 History subcutaneous pen (Humalog KwikPen (U-100) Insulin) lisinopril 40 mg tablet 40 mg PO DAILY 02/10/19 01/19/24 History amlodipine 10 mg tablet 10 mg PO DAILY 09/29/22 01/19/24 History prochlorperazine maleate 10 mg 10 mg PO DAILY PRN Indigestion 09/29/22 01/19/24 History tablet (Compazine) simvastatin 40 mg tablet 40 mg PO DAILY 09/29/22 01/19/24 History linaclotide 145 mcg capsule 145 mcg PO DAILY 01/19/24 01/19/24 History (Linzess) semaglutide 1 mg/dose (4 mg/3 mL) 1 mg subcut WEEKLY 01/19/24 01/19/24 History subcutaneous pen injector (Ozempic) tretinoin 0.05 % topical cream 1 applic topical DAILY PRN Rash 01/19/24 01/19/24 History Laboratory Tests 01/19/24 01/19/24 01/19/24 02:48 11:33 16:57 WBC RBC Hgb Hct MCV MCH MCHC RDW Plt Count MPV Immature Gran % (Auto) Neut % (Auto) Lymph % (Auto) Bradford % (Auto) Eos % (Auto) Baso % (Auto) Lymph # (Auto) Bradford # (Auto) Eos # (Auto) Baso # (Auto) Abs Immat Gran (auto) Absolute Neuts (auto) Absolute Nucleated RBC Nucleated RBC % PT 13.4 Seconds (11.1-14.7) INR 1.0 APTT 26.0 Seconds (22.3-36.8) Sodium Potassium Chloride Carbon Dioxide Anion Gap BUN Creatinine Estim Creat Clear Calc Estimated GFR Glucose POC Capillary Glucose 153 H mg/dl (65-105) Hemoglobin A1c 7.8 H % (<5.7) Calcium Total Bilirubin AST ALT Alkaline Phosphatase Troponin I < 0.012 ng/mL (0.000-0.034) Total Protein Albumin Blood Type Antibody Screen 01/19/24 01/20/24 01/20/24 21:04 04:30 07:58 WBC 9.7 K/mm3 (4.5-10.0) RBC 3.79 L M/mm3 (4.2-5.4) Hgb 11.3 L g/dL (12.0-15.0) Hct 34.2 L % (37.0-47.0) MCV 90.2 fl (80-100) MCH 29.8 pg (26-34) MCHC 33.0 g/dl (32-36) RDW 13.2 % (11.5-14.5) Plt Count 283 k/mm3 (150-375) MPV 10.9 H fl (7.4-10.4) Immature Gran % (Auto) 0.3 % (0-0.5) Neut % (Auto) 67.6 % (45.5-73.1) Lymph % (Auto) 25.5 % (18.3-44.2) Bradford % (Auto) 4.9 % (2.6-8.5) Eos % (Auto) 1.3 % (0-4.4) Baso % (Auto) 0.4 % (0.2-1.2) Lymph # (Auto) 2.47 K/mm3 (0.9-3.2) Bradford # (Auto) 0.5 K/mm3 (0.1-0.6) Eos # (Auto) 0.1 K/mm3 (0-0.3) Baso # (Auto) 0.0 K/mm3 (0.0-0.1) Abs Immat Gran (auto) 0.03 K/mm3 (0.00-0.031) Absolute Neuts (auto) 6.6 K/mm3 (1.3-6.7) Absolute Nucleated RBC 0.000 K/mm3 (0.0-0.012) Nucleated RBC % 0.0 % (0.0-0.2) PT INR APTT Sodium 140 mmol/L (137-145) Potassium 3.6 mmol/L (3.4-5.0) Chloride 104 mmol/L (98-107) Carbon Dioxide 30 mmol/L (22-30) Anion Gap 6 mmol/L (4-12) BUN 13 mg/dL (7-17) Creatinine 1.00 mg/dL (0.7-1.0) Estim Creat Clear Calc 64 ml/min Estimated GFR > 60 (59 - ) Glucose 120 H mg/dL (65-110) POC Capillary Glucose 165 H mg/dl 133 H mg/dl (65-105) (65-105) Hemoglobin A1c Calcium 8.8 mg/dL (8.4-10.2) Total Bilirubin 0.8 mg/dL (0.2-1.3) AST 60 H U/L (14-36) ALT 79 H U/L (6-35) Alkaline Phosphatase 181 H U/L (38-126) Troponin I Total Protein 8.0 g/dL (6.3-8.2) Albumin 4.1 g/dL (3.5-5.1) Blood Type Antibody Screen 01/20/24 01/20/24 10:15 10:20 WBC RBC Hgb Hct MCV MCH MCHC RDW Plt Count MPV Immature Gran % (Auto) Neut % (Auto) Lymph % (Auto) Bradford % (Auto) Eos % (Auto) Baso % (Auto) Lymph # (Auto) Bradford # (Auto) Eos # (Auto) Baso # (Auto) Abs Immat Gran (auto) Absolute Neuts (auto) Absolute Nucleated RBC Nucleated RBC % PT INR APTT Sodium Potassium Chloride Carbon Dioxide Anion Gap BUN Creatinine Estim Creat Clear Calc Estimated GFR Glucose POC Capillary Glucose 155 H mg/dl (65-105) Hemoglobin A1c Calcium Total Bilirubin AST ALT Alkaline Phosphatase Troponin I Total Protein Albumin Blood Type B Positive Antibody Screen Negative Patient hx anesthesia problems: none Family hx anesthesia problems: none Results Review: All pre-operative results and documents have been reviewed as part of the pre- operative evaluation. FOR[facility]LY [facility] Past Medical History Medical History BMI 31.0-31.9,adult Congenital hypertrophy of kidney Diabetes Dyslipidemia Hypertension Surgical History Surgical History H/O: hysterectomy History of transmetatarsal amputation of left foot History of urostomy Family History Family History Mother Diabetes mellitus Father Hypertension Sibling Cerebrovascular accident Other Family history of arthritis Social History Social History Social History: Lives at home with and daughter. No pets. Smoking status: Never smoker Alcohol intake: current Drinks per week: 1 Alcohol use details: occasionally will have a drink socially. Substance use: never Do You Feel Safe in your Home?: Yes Lack of Transportation: No Lack of Food: Never True Current Housing: I Have Housing Concerned About Future Housing: No Difficulty Paying Gas/Electric Bills: No Difficulty Paying for Meds: No Currently Unemployed: No Education: Associate Degree Difficulty w/ Childcare or Family Care: No Gender identity (if verbalized by the patient): Female Spiritual care concerns: No Anes - Eval Final PreProcedure Day of Procedure 01/20/24 11:31 Patient weight: obese Heart: regular rate and rhythm Lungs: clear to auscultation Airway: Mallampati scale class III Neurological: alert and oriented Last oral intake: >/= 8 hours ASA classification: III Emergent: yes Anesthetic plan: proceed Anesthesia type and monitoring: general ETT and standard monitoring Results Review: All pre-operative results and documents have been reviewed as part of the pre- operative evaluation. Informed Consent: The patient's anesthetic plan and its attendant risks and benefits were discussed with the patient/family/POA. Questions were solicited and answers provided to the satisfaction of the patient/family/POA.
[2024-01-20 11:49] LABS: Glucose Point of Care 137 mg/dl (65-105)
--- NOTE | 2024-01-20 11:56 | WPDGICN ---
Assessment and Plan Assessment and plan (1) Cholecystitis with cholelithiasis: Code(s): K80.10 - Calculus of gallbladder with chronic cholecystitis without obstruction Status: Acute (2) Hydronephrosis, right: Code(s): N13.30 - Unspecified hydronephrosis Status: Acute (3) Abdominal pain: Code(s): R10.9 - Unspecified abdominal pain Status: Acute (4) Sepsis: Code(s): A41.9 - Sepsis, unspecified organism Status: Acute Plan gallbladder sludge/polyp acute cholecystitis possible right upper quadrant discomfort chronic right hydroureter discussed with the patient in detailed patient is planning to go to the OR today for cholecystectomy patient does have moderate tenderness in the right upper quadrant area further recommendations will follow after the cholecystectomy. If patient continues to have discomfort after the gallbladder surgery she may need an upper scope at some time. It can be decided after seeing the results of cholecystectomy regular GI service will resume patient care on Sunday GI Consult Note Consult date/time: 01/20/24 11:56 Reason for consult: right upper quadrant pain acute cholecystitis gallbladder //polyp nausea vomiting mildly abnormal liver function tests right-sided chronic hydronephrosis HPI: Lena Mcneal is a 53 year old female seen 1st time patient was admitted in the hospital with the diagnosis of acute cholecystitis and right upper quadrant discomfort along with nausea and vomiting which is for the last 2 days. Patient is scheduled for cholecystectomy today has been evaluated by the surgeon. Patient lab workup was reviewed patient liver function tests are mildly elevated AST 60 ALT 79. White cell count is 9.7. Patient is also aware of right-sided hydronephrosis for long time urinalysis has been negative patient complains of basically pain in the right upper quadrant area currently getting ready to go to the OR for cholecystectomy Review of Systems Review of Systems: otherwise negative Constitutional: Comments: mild distress because of the discomfort in the abdomen Cardiovascular: Comments: S1-S2 regular rate to the Respiratory: Comments: air entry equal bilateral clear Gastrointestinal: Comments: [id number] tenderness in the right upper quadrant area Chow positive no rebound no guarding bowel sounds positive Musculoskeletal: Comments: intact Neurologic: Comments: intact PMFSH Past Medical History Medical History BMI 31.0-31.9,adult Congenital hypertrophy of kidney Diabetes Dyslipidemia Hypertension Surgical History Surgical History H/O: hysterectomy History of transmetatarsal amputation of left foot History of urostomy Family History Family History Mother Diabetes mellitus Father Hypertension Sibling Cerebrovascular accident Other Family history of arthritis Social History Social History Social History: Lives at home with and daughter. No pets. Smoking status: Never smoker Alcohol intake: current Drinks per week: 1 Alcohol use details: occasionally will have a drink socially. Substance use: never Do You Feel Safe in your Home?: Yes Lack of Transportation: No Lack of Food: Never True Current Housing: I Have Housing Concerned About Future Housing: No Difficulty Paying Gas/Electric Bills: No Difficulty Paying for Meds: No Currently Unemployed: No Education: Associate Degree Difficulty w/ Childcare or Family Care: No Gender identity (if verbalized by the patient): Female Spiritual care concerns: No Meds Home Medications and Allergies Home Medications Medication Instructions Recorded Confirmed Type hydrochlorothiazide 12.5 mg tablet 12.5 mg PO DAILY 02/10/19 01/19/24 History insulin lispro 100 unit/mL 1 unit subcut ONCE 02/10/19 01/19/24 History subcutaneous pen (Humalog KwikPen (U-100) Insulin) lisinopril 40 mg tablet 40 mg PO DAILY 02/10/19 01/19/24 History amlodipine 10 mg tablet 10 mg PO DAILY 09/29/22 01/19/24 History prochlorperazine maleate 10 mg 10 mg PO DAILY PRN Indigestion 09/29/22 01/19/24 History tablet (Compazine) simvastatin 40 mg tablet 40 mg PO DAILY 09/29/22 01/19/24 History linaclotide 145 mcg capsule 145 mcg PO DAILY 01/19/24 01/19/24 History (Linzess) semaglutide 1 mg/dose (4 mg/3 mL) 1 mg subcut WEEKLY 01/19/24 01/19/24 History subcutaneous pen injector (Ozempic) tretinoin 0.05 % topical cream 1 applic topical DAILY PRN Rash 01/19/24 01/19/24 History Allergies Allergy/AdvReac Type Severity Reaction Status Date / Time amoxicillin Allergy Unknown Rash Verified 01/19/24 02:36 Penicillins Allergy Unknown Rash Verified 01/19/24 02:36 fish oil Allergy Rash Verified 01/19/24 02:36 Vital Signs Vital Signs - 24 hr 01/19/24 13:30 01/19/24 16:00 01/19/24 22:15 Temperature 97.6 F 97.6 F Pulse Rate 89 84 Respiratory Rate 17 18 Blood Pressure 138/72 137/60 Pulse Oximetry 100 100 Oxygen Delivery Room Air Fraction of Inspired Oxygen 01/20/24 05:57 01/20/24 09:12 01/20/24 10:23 Temperature 98 F Pulse Rate 85 Respiratory Rate 16 Blood Pressure 106/55 L 88/42 L Pulse Oximetry 100 99 Oxygen Delivery Room Air Fraction of Inspired Oxygen 21 01/20/24 10:35 01/20/24 09:00 Temperature Pulse Rate Respiratory Rate Blood Pressure 122/80 Pulse Oximetry Oxygen Delivery Room Air Fraction of Inspired Oxygen Exam Const: Other: overall appears to be sick and in acute distress because of pain HENMT: Other: pupil equally reactive Neck: Other: supple Chest: Other: air entry equal bilateral melissa Resp: Other: r air entry equal bilateral clear Cardio: Other: S1-S2 regular rhythm GI: Other: moderate tenderness in the right upper quadrant area with Chow positive no rebound no guarding Skin: Other: intact Neuro: Other: intact Results Labs 01/20/24 04:30 01/20/24 04:30 Labs: Short CBC 01/20/24 Range/Units 04:30 WBC 9.7 (4.5-10.0) K/mm3 Hgb 11.3 L (12.0-15.0) g/dL Hct 34.2 L (37.0-47.0) % Plt Count 283 (150-375) k/mm3 BMP 01/20/24 04:30 Sodium 140 Potassium 3.6 Chloride 104 Carbon Dioxide 30 BUN 13 Creatinine 1.00 Glucose 120 H Calcium 8.8 Cardiac Enzymes 01/19/24 Range/Units 11:33 Troponin I < 0.012 (0.000-0.034) ng/mL Liver Function 01/20/24 Range/Units 04:30 Total Bilirubin 0.8 (0.2-1.3) mg/dL AST 60 H (14-36) U/L ALT 79 H (6-35) U/L Alkaline Phosphatase 181 H (38-126) U/L Albumin 4.1 (3.5-5.1) g/dL
[2024-01-20] MEDS: LACTATED RINGERS 1,000 ML 30 ML IV CONT ×2 (12:10→13:30)
[2024-01-20] MEDS: BUPivacaine HCL 0.5% PF 30 ML VIAL 20 ML INFILTRATE (12:41)
[2024-01-20] MEDS: LIDO 1%/EPINEPHRINE 1:100,000 20 ML VIAL INFILTRATE (12:42)
[2024-01-20] MEDS: KETOROLAC 15 MG/ML VIAL (*BKC) IV PUSH (13:16)
--- NOTE | 2024-01-20 13:37 | W.PM.PROC2 ---
Procedure Note - Detailed Date of Procedure 01/20/24 Pre-op Diagnosis Acute cholecystitis secondary to gallbladder sludge Post-op Diagnosis Other (Acute on chronic cholecystitis secondary to gallbladder sludge) Procedure Performed Laparoscopic cholecystectomy Surgeon Live Alvarado MD Scheduling Coordinator RENAE Castaneda Anesthesia General Indications Patient is a 53-year-old female presented to the emergency room with severe right upper quadrant abdominal pain lasting over 12hours. She had previously been having intermittent pain over last couple of weeks. Elevated white blood count emergency room and a CT scan abdomen pelvis showed a dilated gallbladder with what appeared to be sludge in the dependent portion of gallbladder. Abdominal ultrasound also showed some sludge in gallbladder. She is to have significant right upper quadrant tenderness on exam so she is being brought to the operating now for a laparoscopic cholecystectomy urgently. Findings The patient distended gallbladder with had some minimal edema of the gallbladder wall. There were chronic adhesions of the omentum to the gallbladder wall. She has a few adhesions from previous abdominal surgery. There was some omentum adherent to the right mid lateral abdominal wall and this adhesion had to be taken now to place ports. She also had some adhesions around the periumbilical region which were below the umbilical port and not taken down. Description of Procedure After informed consent was obtained patient brought to the operating room she was placed supine position and general endotracheal anesthesia was administered. The abdomen was then prepped and draped usual sterile fashion. A time-out was then performed correctly identifying the patient as well as procedure to be performed. She was already on scheduled IV antibiotics. I entered the abdomen left upper quadrant utilizing a 5mm Optiview port. Once inside the abdomen insufflated to adequate pneumoperitoneum of 15mmHg of CO2 I could then see there were some adhesions just below the umbilicus involving just omentum. In the right lateral abdominal wall there was some omentum which was incarcerated within a prior port site small fascial defect. I then placed another 10mm epigastric trocar port and then utilizing electrocautery and blunt dissection remove the omentum from the small port site defect in the right lateral abdominal wall. I then placed a 5mm trocar port through this defect. I then placed 1 more 5mm trocar port in the right subcostal region under direct visualization. The gallbladder was then visualized it was dilated. There was minimal edema the gallbladder wall but there was thickening of the gallbladder wall. There were adhesions of the omentum to the gallbladder wall which are chronic in nature. Was able to hold the gallbladder at the dome and elevated the gallbladder over the right half liver towards the right shoulder. A 2nd grasper was then used to hold the gallbladder in the mid portions I bluntly stripped down omental adhesions to the gallbladder wall. I was then able to reposition the instrument onto the infundibular gallbladder with lateral dissection on the apply strip down the visceral peritoneum into identified the cystic duct. Cystic duct was then dissected out circumferentially. The the cystic artery was then identified dissected out circumferentially as well. The posterior wall the gallbladder at the infundibulum dissected free of the liver into the critical view was obtained. I then placed 2 clips proximally in the cystic duct and 2 clips distally high on infundibular gallbladder. Cystic duct was then divided with Endo Dre. The cystic artery was then clipped and divided as well in a similar fashion. The gallbladder was resected off the liver bed utilizing electrocautery without spilling any bile or sludge or gallstones. Once the gallbladder was freed from the liver is placed into an Endo-Catch bag and brought out through the epigastric port site. The gallbladder and contents were sent to pathology for examination. I then irrigated out the gallbladder fossa with sterile saline solution. Hemostasis was good. There is no evidence of bile leak. I then aspirated the fluid from the right upper quadrant the abdomen from the pelvis. I then proceeded to close the right lateral abdominal wall trocar port fascial defect which had the omentum a Uvaldo with an earlier with placement of a 0 Vicryl suture placed with the suture assist device laparoscopically. He 0 Vicryl suture was then placed in the epigastric 10mm trocar port with a suture assist device as well. All the ports were then removed under direct visualization and the abdomen was allowed to decompress. The port sites were hemostatic. I then tied down the fascial sutures in the 2 port sites. Port sites were then irrigated sterile saline solution hemostasis was good. I then closed all the port sites at the skin level utilizing a running subcuticular 4-0 Monocryl suture. The incisions were then cleaned and then skin glue was applied. The patient tolerated the procedure well no complications. All sponges, needles, and instrument counts were correct at the end procedure. EBL was _25__cc. The patient was awakened and taken to recovery in stable and satisfactory condition. Implants None Estimated Blood Loss 25 Drains No Packing No Pathology Yes (Gallbladder sent to pathology) Complications No immediate complications Condition Stable Disposition PACU [facility] Billing Surgery - Charge Forward: Surgery Billing
[2024-01-20 13:51] LABS: Glucose Point of Care 169 mg/dl (65-105)
[2024-01-20] MEDS: fentaNYL CITRATE INJ (*CRX) 100 MCG/2 ML VIAL 25 MCG IV PUSH (14:06)
[2024-01-20 17:17] LABS: Glucose Point of Care 212 mg/dl (65-105)
[2024-01-20] MEDS: INSULIN ASPART (*BKC) 100 UNITS/ML SUB-Q (17:32)
[2024-01-20] MEDS: DOCUSATE SODIUM 100 MG CAPSULE PO (17:32)
[2024-01-20] MEDS: oxyCODONE HCL (*CRX) 5 MG TAB IR PO ×2 (18:22→23:19)
[2024-01-20 21:04] LABS: Glucose Point of Care 266 mg/dl (65-105)
[2024-01-20] MEDS: HYDROcodone/acetaminophen (*CRX) 5-325 MG TABLET 1 TAB PO (21:26)
[2024-01-20] MEDS: diphenhydrAMINE HCl CAP 25 MG CAPSULE PO (23:15)
[2024-01-21] VITALS (9 sets, daily range): BP systolic 95–193; BP diastolic 56–65; PULSE 79–96; RESP 16–18; TEMP 36.3–36.7; O2SAT 95–100
[2024-01-21] MEDS: ONDANSETRON INJ 4 MG/2 ML VIAL IV PUSH ×2 (02:11→12:26)
[2024-01-21] MEDS: HYDROmorphone HCL INJ (*CRX) 1 MG/ML SYR IV PUSH ×2 (02:14→15:32)
--- NOTE | 2024-01-21 07:55 | P.PNIM_ITS ---
Progress Note: A&P Assessment and Plan (1) Sepsis: Code(s): A41.9 - Sepsis, unspecified organism Status: Acute Assessment and Plan: Meets SIRS criteria: HR and leukocytosis - lactic acid WNL - 1 L sepsis bolus given - suspected source: cholecystitis - blood cultures drawn on 01/18: prelim. negative - UA non concerning for infection - CT abdomen/pelvis: There is suggestion of either a sludge/bile level or gallstone/bile level within the fundus of the gallbladder (series 3 images 87- 90). 01/19: Slight increase in WBC, however likely postop related. She remains afebrile and vitals are stable. (2) Cholecystitis with cholelithiasis: Code(s): K80.10 - Calculus of gallbladder with chronic cholecystitis without obstruction Status: Acute Assessment and Plan: Suspect cholecystitis - LFTs elevated: tot bili 1.1, AST 221, ALT 107, alk phos 273. Lipase WNL. - CT abdomen/pelvis: There is suggestion of either a sludge/bile level or gallstone/bile level within the fundus of the gallbladder (series 3 images 87- 90). - Abdomen US: Sludge or stones are suggested in the dependent aspect of the gallbladder fundus on 01/19/2024 CT abdomen examination, without definite correlate on this ultrasound examination. Consider second look ultrasound with attention specifically to the gallbladder. - Repeat US: 7 x 17 mm sludge ball versus gallbladder polyp. - Analgesics - Antibiotics: Cipro and flagyl started on 01/18 - Diet: Full liquid diet, advance as tolerated - Monitor vital signs, I and O's, check stool output, neuro status and patient is a fall risk - Monitor serum electrolytes and CBC - Monitor lactic acid - Surgery consulted, appreciate recommendatiosn s/p laparoscopic cholecystectomy on 01/[address] Alvarado - GI consulted, appreciate recommendations If patient continues to have discomfort after the gallbladder surgery she may need an upper scope at some time. It can be decided after seeing the results of cholecystectomy 01/20: Patient had an episode of emesis with meals. Improved nausea with zofran. Remains on current diet per surgery but started on IV fluids. (3) Elevated liver enzymes: Code(s): R74.8 - Abnormal levels of other serum enzymes Status: Acute Assessment and Plan: LFTs elevated: tot bili 1.1, AST 221, ALT 107, alk phos 273 on admission. - LFTs: tot bili 0.7, AST 54, ALT 77, alk phos 174 - CT abdomen/pelvis: There is suggestion of either a sludge/bile level or gallstone/bile level within the fundus of the gallbladder (series 3 images 87- 90). - Abdomen US: Sludge or stones are suggested in the dependent aspect of the gallbladder fundus on 01/19/2024 CT abdomen examination, without definite correlate on this ultrasound examination. Consider second look ultrasound with attention specifically to the gallbladder. - Repeat US: 7 x 17 mm sludge ball versus gallbladder polyp. - Holding simvastatin, resume when appropriate - Monitor on daily labs - GI consulted, appreciate recommendations (4) Diabetes: Code(s): E11.9 - Type 2 diabetes mellitus without complications Status: Chronic Assessment and Plan: - hypoglycemia protocol - POC blood glucose ACHS - home medication - lispro 65 units in the am and 55 units in the pm and ozempic - correct regimen ordered - SSI TIDWM, will likely need to resume lispro dosing however patient has been NPO pending imaging. - A1C 7.8 (5) Hypertension: Code(s): I10 - Essential (primary) hypertension Status: Chronic Assessment and Plan: Chronic, continue home medications. - amlodipine 10 mg daily - lisinopril 40 mg daily - HCTZ 12.5 mg daily - Monitor Patient blood pressure was charted in the 190s systolic this am. Call made to patients RN and repeat pressure was said to in the 140s systolic. Patient endorsing dizziness with position change. Orthostatic blood pressures ordered. 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 Patient is pleasant lying in bed with at bedside. She endorses increased abdominal pain and had an episode of vomiting after her meal. Given Zofran and nausea improved. Per surgery patient will remain on current diet and was started on IV fluids at that time. Patient is also noting dizziness with position changes. Orthostatic vital signs ordered. Patient has no other complaints denying chest pain, shortness of breath, palpitations. Review of Systems Review of Systems: All systems reviewed & are unremarkable except as noted in HPI and below Exam Narrative: General: female in no acute respiratory distress who is nontoxic appearing, lying semi recumbent in bed. HEENT: Normocephalic. Atraumatic. Extraocular movement intact. Sclera clear and anicteric. No facial asymmetry. Chest: Lungs are clear to auscultation bilaterally. No wheezes or crackles. CV: Heart was regular rate and rhythm. S1-S2. No murmurs, gallops, or rubs. Abd: Abdomen was soft. Tenderness to RUQ/epigastric region. Nondistended. Positive bowel sounds. Well healing incisions. Objective Data Vital Signs Vital Signs: Vital Signs - 24 hr 01/20/24 09:12 01/20/24 10:23 01/20/24 10:35 Temperature Pulse Rate Respiratory Rate Blood Pressure 88/42 L 122/80 Pulse Oximetry 99 Oxygen Delivery Room Air Oxygen Flow Rate Fraction of Inspired Oxygen 21 01/20/24 09:00 01/20/24 13:30 01/20/24 13:45 Temperature 97.9 F Pulse Rate 99 94 Respiratory Rate 12 12 Blood Pressure 155/73 H 171/71 H Pulse Oximetry 100 100 Oxygen Delivery Room Air Simple Face Mask Simple Face Mask Oxygen Flow Rate 8 8 Fraction of Inspired Oxygen 01/20/24 14:00 01/20/24 14:15 01/20/24 14:30 Temperature 97.9 F Pulse Rate 93 94 90 Respiratory Rate 12 10 L 12 Blood Pressure 165/69 H 156/74 H 148/74 H Pulse Oximetry 99 97 95 Oxygen Delivery Simple Face Mask Room Air Room Air Oxygen Flow Rate 8 Fraction of Inspired Oxygen 01/20/24 15:00 01/20/24 15:15 01/20/24 15:45 Temperature 97.6 F 97.6 F 97.6 F Pulse Rate 97 99 97 Respiratory Rate 13 14 15 Blood Pressure 149/67 H 165/64 H 144/67 H Pulse Oximetry 100 100 98 Oxygen Delivery Oxygen Flow Rate Fraction of Inspired Oxygen 01/20/24 16:45 01/20/24 18:19 01/20/24 20:15 Temperature 97.6 F 97.8 F Pulse Rate 96 96 Respiratory Rate 16 20 Blood Pressure 115/65 137/73 171/73 H Pulse Oximetry 95 100 Oxygen Delivery Oxygen Flow Rate Fraction of Inspired Oxygen 01/21/24 00:00 01/21/24 04:00 Temperature 97.3 F L 97.6 F Pulse Rate 88 88 Respiratory Rate 18 18 Blood Pressure 143/62 H 125/58 L Pulse Oximetry 97 95 Oxygen Delivery Oxygen Flow Rate Fraction of Inspired Oxygen Intake/Output Intake/Output: Intake & Output 01/18/24 01/19/24 01/20/24 01/21/24 23:59 23:59 23:59 23:59 Intake Total 1550 950 120 Output Total 100 Balance 1450 950 120 Meds/Results Medications: Active Medications Generic Name Dose Route Start Last Admin Trade Name Freq PRN Reason Stop Dose Admin Acetaminophen 1,000 mg 01/20/24 13:35 Acetaminophen 500 Mg Tablet PO Q6H PRN Mild Pain (1-3) or Fever Hydrocodone Bitart/Acetaminophen 1 tab 01/20/24 13:35 01/20/24 21:26 Hydrocodone/Acetaminophen (*Crx) 5-325 Mg Tablet PO 1 tab Q4H PRN Administration Pain Rated 4-6 Amlodipine Besylate 10 mg 01/20/24 09:00 01/20/24 10:45 Amlodipine Besylate 10 Mg Tablet PO Not Given DAILY SARAH Dextrose 12.5 gm 01/19/24 13:54 Dextrose 50% 25 Gm/50 Ml Syringe IV PUSH PRN PRN Hypoglycemia Protocol Docusate Sodium 100 mg 01/19/24 17:00 01/20/24 17:32 Docusate Sodium 100 Mg Capsule PO 100 mg BID SARAH Administration Fentanyl Citrate 25 mcg 01/20/24 11:31 01/20/24 14:06 Fentanyl Citrate Inj (*Crx) 100 Mcg/2 Ml Vial IV PUSH 25 mcg Q2M PRN Administration Pain Glucagon 1 mg 01/19/24 13:54 Glucagon For Inj 1 Mg Vial IM PRN PRN Hypoglycemia Protocol Glucose 15 gm 01/19/24 13:54 Glucose Oral Gel 15 Gm Of Glucse In 37.5 Gm Tube PO PRN PRN Hypoglycemia Protocol Hydrochlorothiazide 12.5 mg 01/20/24 09:00 01/20/24 10:45 Hydrochlorothiazide 12.5 Mg Capsule PO Not Given DAILY SARAH Hydromorphone HCl 1 mg 01/19/24 06:39 01/21/24 02:14 Hydromorphone Hcl Inj (*Crx) 1 Mg/Ml Syr IV PUSH 1 mg Q4H PRN Administration Pain Rated 7-10 Dextrose 1,000 mls @ 100 mls/hr 01/19/24 13:54 Dextrose 5% 1,000 Ml IVPB PRN PRN Hypoglycemia Protocol Lactated Ringer's 1,000 mls @ 30 mls/hr 01/20/24 11:35 01/20/24 13:30 Lr - Lactated Ringers Iv IV CONT Infused .Q24H SARAH Infusion Lactated Ringer's 1,000 mls @ 30 mls/hr 01/20/24 11:35 01/20/24 14:42 Lr - Lactated Ringers Iv IV CONT Infused .Q24H SARAH Infusion Insulin Aspart 2 - 5 units 01/19/24 17:00 01/20/24 17:32 Insulin Aspart (*Bkc) 100 Units/Ml SUB-Q 2 units TIDWM SARAH Administration Protocol Linaclotide 145 mcg 01/21/24 09:00 Linaclotide 145 Mcg Capsule PO DAILY SARAH Lisinopril 40 mg 01/20/24 09:00 01/20/24 10:46 Lisinopril 20 Mg Tablet PO Not Given DAILY SARAH Miscellaneous Information 1 each 01/21/24 00:01 Med Rec Order Clarification XX 02/20/24 00:00 CLARIFY SARAH Miscellaneous Information 1 each 01/21/24 00:01 Med Rec Order Clarification XX 02/20/24 00:00 CLARIFY SARAH Miscellaneous Information 1 each 01/21/24 00:01 Med Rec Order Clarification XX 02/20/24 00:00 CLARIFY SARAH Non-Formulary Medication 1 unit 01/20/24 14:43 Insulin Lispro [Humalog Kwikpen Insulin] SUB-Q 02/19/24 14:42 ONCE SARAH Non-Formulary Medication 1 mg 01/27/24 09:00 Semaglutide [Ozempic] SUB-Q 02/26/24 08:59 WEEKLY SARAH Non-Formulary Medication 1 applic 01/20/24 14:43 Tretinoin TOPICAL DAILY PRN Rash Ondansetron HCl 4 mg 01/19/24 06:39 01/21/24 02:11 Ondansetron Inj 4 Mg/2 Ml Vial IV PUSH 4 mg Q4H PRN Administration Nausea Ondansetron HCl 4 mg 01/20/24 11:31 Ondansetron Inj 4 Mg/2 Ml Vial IV PUSH ONCE PRN Nausea Oxycodone HCl 5 mg 01/20/24 13:35 01/20/24 23:19 Oxycodone Hcl (*Crx) 5 Mg Tab Ir PO 5 mg Q4H PRN Administration Pain Rated 7-10 Pantoprazole Sodium 40 mg 01/19/24 09:00 01/20/24 09:03 Pantoprazole Sodium Iv 40 Mg Vial IV PUSH 40 mg QAM SARAH Administration Prochlorperazine Maleate 10 mg 01/20/24 14:43 Prochlorperazine Maleate 5 Mg Tablet PO DAILY PRN Indigestion Simvastatin 40 mg 01/21/24 09:00 Simvastatin 20 Mg Tablet PO DAILY SARAH Radiology Results: ITS Impressions Abdomen/Pelvis CT 01/19/24 07:45 IMPRESSION: Chronic prominent right hydronephrosis, not significantly changed since 02/10/2019 Chronic small nonobstructing calculus in each kidney, also present on 02/10/2019 Small sliding hiatal hernia Normal appendix Status post hysterectomy ADDENDUM: 01/19/24 1346 Addendum: There is suggestion of either a sludge/bile level or gallstone/bile level within the fundus of the gallbladder (series 3 images 87-90). IMPRESSION: Gallstones or sludge suggested in the gallbladder fundus Abdomen Ultrasound 01/19/24 16:31 IMPRESSION: 7 x 17 mm sludge ball versus gallbladder polyp. Labs Labs: Laboratory Results - last 24 hr 01/20/24 01/20/24 01/20/24 07:58 10:15 10:20 POC Capillary Glucose 133 H 155 H Blood Type B Positive Antibody Screen Negative 01/20/24 01/20/24 01/20/24 11:46 13:47 17:10 POC Capillary Glucose 137 H 169 H 212 H Blood Type Antibody Screen 01/20/24 20:50 POC Capillary Glucose 266 H Blood Type Antibody Screen Quality VTE Prophylaxis VTE prophylaxis: mechanical ordered
[2024-01-21 08:03] LABS: Glucose Point of Care 187 mg/dl (65-105)
[2024-01-21] MEDS: LINACLOTIDE 145 MCG CAPSULE PO (09:01)
[2024-01-21] MEDS: amLODIPine BESYLATE 10 MG TABLET PO (09:01)
[2024-01-21] MEDS: SIMVASTATIN 20 MG TABLET 40 MG PO (09:01)
[2024-01-21] MEDS: lisinopriL 20 MG TABLET 40 MG PO (09:01)
[2024-01-21] MEDS: oxyCODONE HCL (*CRX) 5 MG TAB IR PO ×3 (09:01→17:49)
[2024-01-21] MEDS: hydroCHLOROthiazide 12.5 MG CAPSULE PO (09:01)
[2024-01-21] MEDS: DOCUSATE SODIUM 100 MG CAPSULE PO (09:01)
[2024-01-21] MEDS: PANTOPRAZOLE SODIUM IV 40 MG VIAL IV PUSH (09:02)
[2024-01-21 09:53] LABS: Basophils Absolute Auto 0.1 K/mm3 (0.0-0.1); Basophils Percent Auto 0.4 % (0.2-1.2); Eosinophils Percent Auto 0.3 % (0-4.4); Hematocrit 33.1 % (37.0-47.0); Hemoglobin 11.4 g/dL (12.0-15.0); Immature Granulocyte Absolute 0.05 K/mm3 (0.00-0.031); Immature Granulocyte Percent A 0.3 % (0-0.5); Lymphocytes Absolute Auto 0.94 K/mm3 (0.9-3.2); Lymphocytes Percent Auto 6.5 % (18.3-44.2); Mean Corpuscular HGB Conc 34.4 g/dl (32-36); Mean Corpuscular Hemoglobin 30.8 pg (26-34); Mean Corpuscular Volume 89.5 fl (80-100); Mean Platelet Volume 10.7 fl (7.4-10.4); Monocytes Absolute Auto 0.7 K/mm3 (0.1-0.6); Monocytes Percent Auto 4.6 % (2.6-8.5); Neutrophils Absolute Auto 12.6 K/mm3 (1.3-6.7); Neutrophils Percent Auto 87.9 % (45.5-73.1); Platelet Count Result 268 k/mm3 (150-375); Red Cell Distribution Width 13.3 % (11.5-14.5); White Blood Count 14.4 K/mm3 (4.5-10.0)
[2024-01-21 10:10] LABS: Alanine Aminotransferase 77 U/L (6-35); Albumin Level 4.1 g/dL (3.5-5.1); Alkaline Phosphatase 174 U/L (38-126); Anion Gap 5 mmol/L (4-12); Aspartate Amino Transferase 54 U/L (14-36); Bilirubin,Total 0.7 mg/dL (0.2-1.3); Blood Urea Nitrogen 19 mg/dL (7-17); Calcium 8.6 mg/dL (8.4-10.2); Carbon Dioxide 31 mmol/L (22-30); Chloride 100 mmol/L (98-107); Estimated CRCL calculation 54 ml/min; Estimated Glomerular Filt Rate 57; Glucose 206 mg/dL (65-110); Potassium 3.7 mmol/L (3.4-5.0); Sodium 136 mmol/L (137-145)
[2024-01-21 12:10] LABS: Glucose Point of Care 255 mg/dl (65-105)
[2024-01-21] MEDS: INSULIN ASPART (*BKC) 100 UNITS/ML SUB-Q ×2 (12:26→17:39)
[2024-01-21] MEDS: PROCHLORPERAZINE MALEATE 5 MG TABLET 10 MG PO (12:32)
--- NOTE | 2024-01-21 13:37 | PM.PNGS ---
Progress Note: A&P Assessment and Plan (1) Cholecystitis with cholelithiasis: Code(s): K80.10 - Calculus of gallbladder with chronic cholecystitis without obstruction Status: Acute Assessment and Plan: Patient is postop day 1 following a laparoscopic cholecystectomy for acute on chronic cholecystitis secondary to gallbladder sludge. Her blood pressure was high this morning and she is complaining of dizziness upon standing. Discussed with the hospitalist, who is having staff recheck her blood pressure and get orthostatics on her this afternoon. She is also not having nausea and vomiting following lunch. Continue analgesics as needed. Her creatinine went up to 1.2 this morning and she is having difficulty tolerating oral intake. Will restart IV fluids today. Recheck labs again tomorrow. She is still complaining of right upper quadrant abdominal pain and is very tender on exam. Labs were unremarkable and she is hemodynamically stable. Will continue to monitor closely, continue IV and oral analgesics depending on her nausea/vomiting, and repeat exam tomorrow. Plan I have discussed the patient's case and plan of care with Dr. Alvarado. Subjective Subjective Date/Time Seen: 01/21/24 13:37 Post Op day: 1 (Laparoscopic cholecystectomy) Patient reports: still having pain, no flatus, diarrhea (once last night), nausea, vomiting and afebrile Interval history: Chart reviewed. Patient complaining of RUQ and epigastric abdominal pain. Feels the same as prior to her surgery. Overnight, she was tolerating liquids well. She then had solid food for lunch and developed nausea. She vomited and nursing gave her Zofran and compazine, which helped. She also complains of bloating and gas pains. She has walked to the bathroom and is voiding well, but when she first sat up and tried to stand, she felt dizzy and nauseous. Once she sat still, this subsided and she was able to get up again and walk to the bathroom. No chest pain or shortness of breath. Her vitals are stable other than hypertension with a documented blood pressure of 190's/60's this morning. I spoke with the Hospitalist who is having the staff recheck the blood pressure and also get orthostatics. Exam Const: General: uncomfortable (due to nausea); No no acute distress Orientation/consciousness: patient oriented x3 GI: Inspection: incision (incisions dry and glue intact, no erythema or drainage), Pannus present and obesity GI Palp: Yes Soft to palpation, Yes Tenderness to palpation present (GI) (very tender in epigastric area and RUQ), No Guarding due to palpation present (GI) and No Rebound tenderness present Auscultation: Hypoactive bowel sounds present Objective Data Vital Signs Vital Signs: Vital Signs - 24 hr 01/20/24 13:45 01/20/24 14:00 01/20/24 14:15 Temperature Pulse Rate 94 93 94 Respiratory Rate 12 12 10 L Blood Pressure 171/71 H 165/69 H 156/74 H Pulse Oximetry 100 99 97 Oxygen Delivery Simple Face Mask Simple Face Mask Room Air Oxygen Flow Rate 8 8 01/20/24 14:30 01/20/24 15:00 01/20/24 15:15 Temperature 97.9 F 97.6 F 97.6 F Pulse Rate 90 97 99 Respiratory Rate 12 13 14 Blood Pressure 148/74 H 149/67 H 165/64 H Pulse Oximetry 95 100 100 Oxygen Delivery Room Air Oxygen Flow Rate 01/20/24 15:45 01/20/24 16:45 01/20/24 18:19 Temperature 97.6 F 97.6 F Pulse Rate 97 96 Respiratory Rate 15 16 Blood Pressure 144/67 H 115/65 137/73 Pulse Oximetry 98 95 Oxygen Delivery Oxygen Flow Rate 01/20/24 20:15 01/21/24 00:00 01/21/24 04:00 Temperature 97.8 F 97.3 F L 97.6 F Pulse Rate 96 88 88 Respiratory Rate 20 18 18 Blood Pressure 171/73 H 143/62 H 125/58 L Pulse Oximetry 100 97 95 Oxygen Delivery Oxygen Flow Rate 01/21/24 08:00 Temperature 97.9 F Pulse Rate 85 Respiratory Rate 16 Blood Pressure 193/65 H Pulse Oximetry 99 Oxygen Delivery Oxygen Flow Rate Intake/Output Intake/Output: Intake & Output 01/18/24 01/19/24 01/20/24 01/21/24 23:59 23:59 23:59 23:59 Intake Total 1550 950 238 Output Total 100 Balance 1450 950 238 Meds/Results Medications: Active Medications Generic Name Dose Route Start Last Admin Trade Name Freq PRN Reason Stop Dose Admin Acetaminophen 1,000 mg 01/20/24 13:35 Acetaminophen 500 Mg Tablet PO Q6H PRN Mild Pain (1-3) or Fever Hydrocodone Bitart/Acetaminophen 1 tab 01/20/24 13:35 01/20/24 21:26 Hydrocodone/Acetaminophen (*Crx) 5-325 Mg Tablet PO 1 tab Q4H PRN Administration Pain Rated 4-6 Amlodipine Besylate 10 mg 01/20/24 09:00 01/21/24 09:01 Amlodipine Besylate 10 Mg Tablet PO 10 mg DAILY SARAH Administration Dextrose 12.5 gm 01/19/24 13:54 Dextrose 50% 25 Gm/50 Ml Syringe IV PUSH PRN PRN Hypoglycemia Protocol Docusate Sodium 100 mg 01/19/24 17:00 01/21/24 09:01 Docusate Sodium 100 Mg Capsule PO 100 mg BID SARAH Administration Fentanyl Citrate 25 mcg 01/20/24 11:31 01/20/24 14:06 Fentanyl Citrate Inj (*Crx) 100 Mcg/2 Ml Vial IV PUSH 25 mcg Q2M PRN Administration Pain Glucagon 1 mg 01/19/24 13:54 Glucagon For Inj 1 Mg Vial IM PRN PRN Hypoglycemia Protocol Glucose 15 gm 01/19/24 13:54 Glucose Oral Gel 15 Gm Of Glucse In 37.5 Gm Tube PO PRN PRN Hypoglycemia Protocol Hydrochlorothiazide 12.5 mg 01/20/24 09:00 01/21/24 09:01 Hydrochlorothiazide 12.5 Mg Capsule PO 12.5 mg DAILY SARAH Administration Hydromorphone HCl 1 mg 01/19/24 06:39 01/21/24 02:14 Hydromorphone Hcl Inj (*Crx) 1 Mg/Ml Syr IV PUSH 1 mg Q4H PRN Administration Pain Rated 7-10 Dextrose 1,000 mls @ 100 mls/hr 01/19/24 13:54 Dextrose 5% 1,000 Ml IVPB PRN PRN Hypoglycemia Protocol Sodium Chloride 1,000 mls @ 100 mls/hr 01/21/24 13:35 Normal Saline Iv IV CONT .Q10H SARAH Insulin Aspart 2 - 5 units 01/19/24 17:00 01/21/24 12:26 Insulin Aspart (*Bkc) 100 Units/Ml SUB-Q 3 units TIDWM SARAH Administration Protocol Linaclotide 145 mcg 01/21/24 09:00 01/21/24 09:01 Linaclotide 145 Mcg Capsule PO 145 mcg DAILY SARAH Administration Lisinopril 40 mg 01/20/24 09:00 01/21/24 09:01 Lisinopril 20 Mg Tablet PO 40 mg DAILY SARAH Administration Miscellaneous Information 1 each 01/21/24 00:01 Med Rec Order Clarification XX 02/20/24 00:00 CLARIFY SARAH Miscellaneous Information 1 each 01/21/24 00:01 Med Rec Order Clarification XX 02/20/24 00:00 CLARIFY SARAH Miscellaneous Information 1 each 01/21/24 00:01 Med Rec Order Clarification XX 02/20/24 00:00 CLARIFY SARAH Non-Formulary Medication 1 unit 01/20/24 14:43 Insulin Lispro [Humalog Kwikpen Insulin] SUB-Q 02/19/24 14:42 ONCE SARAH Non-Formulary Medication 1 mg 01/27/24 09:00 Semaglutide [Ozempic] SUB-Q 02/26/24 08:59 WEEKLY SARAH Non-Formulary Medication 1 applic 01/20/24 14:43 Tretinoin TOPICAL DAILY PRN Rash Ondansetron HCl 4 mg 01/19/24 06:39 01/21/24 12:26 Ondansetron Inj 4 Mg/2 Ml Vial IV PUSH 4 mg Q4H PRN Administration Nausea Ondansetron HCl 4 mg 01/20/24 11:31 Ondansetron Inj 4 Mg/2 Ml Vial IV PUSH ONCE PRN Nausea Oxycodone HCl 5 mg 01/20/24 13:35 01/21/24 12:31 Oxycodone Hcl (*Crx) 5 Mg Tab Ir PO 5 mg Q4H PRN Administration Pain Rated 7-10 Pantoprazole Sodium 40 mg 01/19/24 09:00 01/21/24 09:02 Pantoprazole Sodium Iv 40 Mg Vial IV PUSH 40 mg QAM SARAH Administration Prochlorperazine Maleate 10 mg 01/20/24 14:43 01/21/24 12:32 Prochlorperazine Maleate 5 Mg Tablet PO 10 mg DAILY PRN Administration Indigestion Simvastatin 40 mg 01/21/24 09:00 01/21/24 09:01 Simvastatin 20 Mg Tablet PO 40 mg DAILY SARAH Administration Radiology Results: ITS Impressions Abdomen/Pelvis CT 01/19/24 07:45 IMPRESSION: Chronic prominent right hydronephrosis, not significantly changed since 02/10/2019 Chronic small nonobstructing calculus in each kidney, also present on 02/10/2019 Small sliding hiatal hernia Normal appendix Status post hysterectomy ADDENDUM: 01/19/24 1346 Addendum: There is suggestion of either a sludge/bile level or gallstone/bile level within the fundus of the gallbladder (series 3 images 87-90). IMPRESSION: Gallstones or sludge suggested in the gallbladder fundus Abdomen Ultrasound 01/19/24 16:31 IMPRESSION: 7 x 17 mm sludge ball versus gallbladder polyp. Labs Labs: Laboratory Results - last 24 hr 01/20/24 01/20/24 01/20/24 13:47 17:10 20:50 WBC RBC Hgb Hct MCV MCH MCHC RDW Plt Count MPV Immature Gran % (Auto) Neut % (Auto) Lymph % (Auto) [place] % (Auto) Eos % (Auto) Baso % (Auto) Lymph # (Auto) [place] # (Auto) Eos # (Auto) Baso # (Auto) Abs Immat Gran (auto) Absolute Neuts (auto) Absolute Nucleated RBC Nucleated RBC % Sodium Potassium Chloride Carbon Dioxide Anion Gap BUN Creatinine Estim Creat Clear Calc Estimated GFR Glucose POC Capillary Glucose 169 H 212 H 266 H Calcium Total Bilirubin AST ALT Alkaline Phosphatase Total Protein Albumin 01/21/24 01/21/24 01/21/24 07:56 09:47 11:46 WBC 14.4 H RBC 3.70 L Hgb 11.4 L Hct 33.1 L MCV 89.5 MCH 30.8 MCHC 34.4 RDW 13.3 Plt Count 268 MPV 10.7 H Immature Gran % (Auto) 0.3 Neut % (Auto) 87.9 H Lymph % (Auto) 6.5 L [place] % (Auto) 4.6 Eos % (Auto) 0.3 Baso % (Auto) 0.4 Lymph # (Auto) 0.94 [place] # (Auto) 0.7 H Eos # (Auto) 0.0 Baso # (Auto) 0.1 Abs Immat Gran (auto) 0.05 H Absolute Neuts (auto) 12.6 H Absolute Nucleated RBC 0.000 Nucleated RBC % 0.0 Sodium 136 L Potassium 3.7 Chloride 100 Carbon Dioxide 31 H Anion Gap 5 BUN 19 H Creatinine 1.20 H Estim Creat Clear Calc 54 Estimated GFR 57 L Glucose 206 H POC Capillary Glucose 187 H 255 H Calcium 8.6 Total Bilirubin 0.7 AST 54 H ALT 77 H Alkaline Phosphatase 174 H Total Protein 8.0 Albumin 4.1
[2024-01-21] MEDS: SODIUM CHLORIDE 0.9% IV 1,000 ML 100 ML IV CONT (14:50)
[2024-01-21 17:25] LABS: Glucose Point of Care 238 mg/dl (65-105)
[2024-01-21 20:50] LABS: Glucose Point of Care 272 mg/dl (65-105)
[2024-01-22] VITALS (8 sets, daily range): BP systolic 102–166; BP diastolic 50–79; PULSE 81–91; RESP 12–18; TEMP 36.2–36.9; O2SAT 94–100
[2024-01-22] MEDS: HYDROmorphone HCL INJ (*CRX) 1 MG/ML SYR IV PUSH ×2 (00:10→08:12)
[2024-01-22] MEDS: SODIUM CHLORIDE 0.9% IV 1,000 ML 100 ML IV CONT ×3 (01:02→22:20)
[2024-01-22 05:44] LABS: Basophils Absolute Auto 0.1 K/mm3 (0.0-0.1); Basophils Percent Auto 0.5 % (0.2-1.2); Eosinophils Absolute Auto 0.3 K/mm3 (0-0.3); Eosinophils Percent Auto 2.5 % (0-4.4); Hemoglobin 10.2 g/dL (12.0-15.0); Immature Granulocyte Absolute 0.02 K/mm3 (0.00-0.031); Immature Granulocyte Percent A 0.2 % (0-0.5); Lymphocytes Absolute Auto 2.66 K/mm3 (0.9-3.2); Lymphocytes Percent Auto 25.1 % (18.3-44.2); Mean Corpuscular HGB Conc 32.9 g/dl (32-36); Mean Corpuscular Hemoglobin 30.1 pg (26-34); Mean Corpuscular Volume 91.4 fl (80-100); Mean Platelet Volume 10.8 fl (7.4-10.4); Monocytes Absolute Auto 0.4 K/mm3 (0.1-0.6); Monocytes Percent Auto 3.5 % (2.6-8.5); Neutrophils Absolute Auto 7.2 K/mm3 (1.3-6.7); Neutrophils Percent Auto 68.2 % (45.5-73.1); Platelet Count Result 253 k/mm3 (150-375); Red Blood Count 3.39 M/mm3 (4.2-5.4); Red Cell Distribution Width 13.5 % (11.5-14.5); White Blood Count 10.6 K/mm3 (4.5-10.0)
[2024-01-22 05:50] LABS: Alanine Aminotransferase 57 U/L (6-35); Albumin Level 3.5 g/dL (3.5-5.1); Alkaline Phosphatase 172 U/L (38-126); Anion Gap 2 mmol/L (4-12); Aspartate Amino Transferase 43 U/L (14-36); Bilirubin,Total 0.4 mg/dL (0.2-1.3); Blood Urea Nitrogen 21 mg/dL (7-17); Calcium 7.9 mg/dL (8.4-10.2); Carbon Dioxide 29 mmol/L (22-30); Chloride 105 mmol/L (98-107); Estimated CRCL calculation 50 ml/min; Estimated Glomerular Filt Rate 52; Glucose 222 mg/dL (65-110); Potassium 3.6 mmol/L (3.4-5.0); Sodium 136 mmol/L (137-145)
[2024-01-22] MEDS: LINACLOTIDE 145 MCG CAPSULE PO (08:04)
[2024-01-22] MEDS: lisinopriL 20 MG TABLET 40 MG PO (08:04)
[2024-01-22] MEDS: hydroCHLOROthiazide 12.5 MG CAPSULE PO (08:04)
[2024-01-22] MEDS: SIMVASTATIN 20 MG TABLET 40 MG PO (08:04)
[2024-01-22] MEDS: amLODIPine BESYLATE 10 MG TABLET PO (08:04)
[2024-01-22] MEDS: DOCUSATE SODIUM 100 MG CAPSULE PO (08:04)
[2024-01-22] MEDS: PANTOPRAZOLE SODIUM IV 40 MG VIAL IV PUSH (08:06)
[2024-01-22 08:11] LABS: Glucose Point of Care 205 mg/dl (65-105)
[2024-01-22] MEDS: INSULIN ASPART (*BKC) 100 UNITS/ML SUB-Q ×3 (08:19→17:10)
--- NOTE | 2024-01-22 08:24 | P.PNIM_ITS ---
Progress Note: A&P Assessment and Plan (1) Sepsis: Code(s): A41.9 - Sepsis, unspecified organism Status: Acute Assessment and Plan: Meets SIRS criteria: HR and leukocytosis - lactic acid WNL - 1 L sepsis bolus given - suspected source: cholecystitis - blood cultures drawn on 01/18: prelim. negative - UA non concerning for infection - CT abdomen/pelvis: There is suggestion of either a sludge/bile level or gallstone/bile level within the fundus of the gallbladder (series 3 images 87- 90). 01/21: She remains afebrile and WBC improving. (2) Cholecystitis with cholelithiasis: Code(s): K80.10 - Calculus of gallbladder with chronic cholecystitis without obstruction Status: Acute Assessment and Plan: Suspect cholecystitis - LFTs elevated: tot bili 1.1, AST 221, ALT 107, alk phos 273. Lipase WNL. - CT abdomen/pelvis: There is suggestion of either a sludge/bile level or gallstone/bile level within the fundus of the gallbladder (series 3 images 87- 90). - Abdomen US: Sludge or stones are suggested in the dependent aspect of the gallbladder fundus on 01/19/2024 CT abdomen examination, without definite correlate on this ultrasound examination. Consider second look ultrasound with attention specifically to the gallbladder. - Repeat US: 7 x 17 mm sludge ball versus gallbladder polyp. - Analgesics - Antibiotics: Cipro and flagyl started on 01/18 - Diet: Full liquid diet, advance as tolerated - Monitor vital signs, I and O's, check stool output, neuro status and patient is a fall risk - Monitor serum electrolytes and CBC - Monitor lactic acid - Surgery consulted, appreciate recommendatiosn s/p laparoscopic cholecystectomy on 01/[address] Alvarado - GI consulted, appreciate recommendations If patient continues to have discomfort after the gallbladder surgery she may need an upper scope at some time. It can be decided after seeing the results of cholecystectomy 01/20: Patient had an episode of emesis with meals. Improved nausea with zofran. Remains on current diet per surgery but started on IV fluids. 01/21: Advanced to low fat diet. Tolerating well. Cleared for discharge from surgical stand point. (3) Elevated liver enzymes: Code(s): R74.8 - Abnormal levels of other serum enzymes Status: Acute Assessment and Plan: LFTs elevated: tot bili 1.1, AST 221, ALT 107, alk phos 273 on admission. - LFTs: tot bili 0.4, AST 43, ALT 57, Alk phos 172 - CT abdomen/pelvis: There is suggestion of either a sludge/bile level or gallstone/bile level within the fundus of the gallbladder (series 3 images 87- 90). - Abdomen US: Sludge or stones are suggested in the dependent aspect of the gallbladder fundus on 01/19/2024 CT abdomen examination, without definite co rrelate on this ultrasound examination. Consider second look ultrasound with attention specifically to the gallbladder. - Repeat US: 7 x 17 mm sludge ball versus gallbladder polyp. - Holding simvastatin, resume when appropriate - Monitor on daily labs - GI consulted, appreciate recommendations (4) Diabetes: Code(s): E11.9 - Type 2 diabetes mellitus without complications Status: Chronic Assessment and Plan: - hypoglycemia protocol - POC blood glucose ACHS - home medication - lispro 65 units in the am and 55 units in the pm and ozempic - correct regimen ordered - SSI TIDWM, will likely need to resume lispro dosing however patient has been NPO pending imaging. - A1C 7.8 (5) Hypertension: Code(s): I10 - Essential (primary) hypertension Status: Chronic Assessment and Plan: Chronic, continue home medications. - amlodipine 10 mg daily - lisinopril 40 mg daily - HCTZ 12.5 mg daily - Monitor Patient having positive orthostatic, however will continue her home antihypertensives as she becomes severely hypertensive without them. Continue on IV fluids. Monitor. 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 Patient is pleasant lying in bed. She states that she stood from the toilet and went to return to her bed when she became very dizzy/lightheaded with associated clamminess. Orthostatic vitals signs are positive. Patient remains on fluids. Patient states that her pain is doing much better. She is tolerating a low fat diet and denies nausea/vomiting. Surgery evaluated patient and she has been cleared for discharge from there stand point. She has no other complaints denying chest pain, shortness of breath and palpitations. Review of Systems Review of Systems: All systems reviewed & are unremarkable except as noted in HPI and below Exam Narrative: AF HR 86 RR 18 SPO2 97 BP 120/50 General: female in no acute respiratory distress who is nontoxic appearing, lying semi recumbent in bed. HEENT: Normocephalic. Atraumatic. Extraocular movement intact. Sclera clear and anicteric. No facial asymmetry. Chest: Lungs are clear to auscultation bilaterally. No wheezes or crackles. CV: Heart was regular rate and rhythm. S1-S2. No murmurs, gallops, or rubs. Abd: Abdomen was soft. Tenderness to RUQ/epigastric region around incision sites. Incisions are well healing. Nondistended. Positive bowel sounds. Well healing incisions. Objective Data Vital Signs Vital Signs: Vital Signs - 24 hr 01/21/24 09:01 01/21/24 15:00 01/21/24 20:50 Temperature 98.1 F Pulse Rate 96 96 Respiratory Rate 18 18 Blood Pressure 117/56 L Pulse Oximetry 99 99 Oxygen Delivery Room Air Room Air Fraction of Inspired Oxygen 21 01/21/24 21:21 01/21/24 23:30 01/21/24 23:33 Temperature 97.3 F L Pulse Rate 88 79 83 Respiratory Rate 18 Blood Pressure 140/57 L 125/61 104/63 Pulse Oximetry 100 Oxygen Delivery Fraction of Inspired Oxygen 01/21/24 23:35 01/22/24 06:18 01/22/24 08:01 Temperature 97.2 F L 97.2 F L Pulse Rate 87 81 82 Respiratory Rate 18 16 Blood Pressure 95/56 L 102/54 L 140/56 L Pulse Oximetry 94 100 Oxygen Delivery Fraction of Inspired Oxygen Intake/Output Intake/Output: Intake & Output 01/19/24 01/20/24 01/21/24 01/22/24 23:59 23:59 23:59 23:59 Intake Total 1550 784 419 2084 Output Total 100 Balance 1450 934 761 7089 Meds/Results Medications: Active Medications Generic Name Dose Route Start Last Admin Trade Name Freq PRN Reason Stop Dose Admin Acetaminophen 1,000 mg 01/20/24 13:35 Acetaminophen 500 Mg Tablet PO Q6H PRN Mild Pain (1-3) or Fever Hydrocodone Bitart/Acetaminophen 1 tab 01/20/24 13:35 01/20/24 21:26 Hydrocodone/Acetaminophen (*Crx) 5-325 Mg Tablet PO 1 tab Q4H PRN Administration Pain Rated 4-6 Amlodipine Besylate 10 mg 01/20/24 09:00 01/22/24 08:04 Amlodipine Besylate 10 Mg Tablet PO 10 mg DAILY SARAH Administration Dextrose 12.5 gm 01/19/24 13:54 Dextrose 50% 25 Gm/50 Ml Syringe IV PUSH PRN PRN Hypoglycemia Protocol Docusate Sodium 100 mg 01/19/24 17:00 01/22/24 08:04 Docusate Sodium 100 Mg Capsule PO 100 mg BID SARAH Administration Fentanyl Citrate 25 mcg 01/20/24 11:31 01/20/24 14:06 Fentanyl Citrate Inj (*Crx) 100 Mcg/2 Ml Vial IV PUSH 25 mcg Q2M PRN Administration Pain Glucagon 1 mg 01/19/24 13:54 Glucagon For Inj 1 Mg Vial IM PRN PRN Hypoglycemia Protocol Glucose 15 gm 01/19/24 13:54 Glucose Oral Gel 15 Gm Of Glucse In 37.5 Gm Tube PO PRN PRN Hypoglycemia Protocol Hydrochlorothiazide 12.5 mg 01/20/24 09:00 01/22/24 08:04 Hydrochlorothiazide 12.5 Mg Capsule PO 12.5 mg DAILY SARAH Administration Hydromorphone HCl 1 mg 01/19/24 06:39 01/22/24 08:12 Hydromorphone Hcl Inj (*Crx) 1 Mg/Ml Syr IV PUSH 1 mg Q4H PRN Administration Pain Rated 7-10 Dextrose 1,000 mls @ 100 mls/hr 01/19/24 13:54 Dextrose 5% 1,000 Ml IVPB PRN PRN Hypoglycemia Protocol Sodium Chloride 1,000 mls @ 100 mls/hr 01/21/24 13:35 01/22/24 01:02 Normal Saline Iv IV CONT 100 mls/hr .Q10H SARAH Administration Insulin Aspart 2 - 5 units 01/19/24 17:00 01/22/24 08:19 Insulin Aspart (*Bkc) 100 Units/Ml SUB-Q 2 units TIDWM SARAH Administration Protocol Linaclotide 145 mcg 01/21/24 09:00 01/22/24 08:04 Linaclotide 145 Mcg Capsule PO 145 mcg DAILY SARAH Administration Lisinopril 40 mg 01/20/24 09:00 01/22/24 08:04 Lisinopril 20 Mg Tablet PO 40 mg DAILY SARAH Administration Miscellaneous Information 1 each 01/21/24 00:01 Med Rec Order Clarification XX 02/20/24 00:00 CLARIFY SARAH Miscellaneous Information 1 each 01/21/24 00:01 Med Rec Order Clarification XX 02/20/24 00:00 CLARIFY SARAH Miscellaneous Information 1 each 01/21/24 00:01 Med Rec Order Clarification XX 02/20/24 00:00 CLARIFY SARAH Non-Formulary Medication 1 unit 01/20/24 14:43 Insulin Lispro [Humalog Kwikpen Insulin] SUB-Q 02/19/24 14:42 ONCE SARAH Non-Formulary Medication 1 mg 01/27/24 09:00 Semaglutide [Ozempic] SUB-Q 02/26/24 08:59 WEEKLY SARAH Non-Formulary Medication 1 applic 01/20/24 14:43 Tretinoin TOPICAL DAILY PRN Rash Ondansetron HCl 4 mg 01/19/24 06:39 01/21/24 12:26 Ondansetron Inj 4 Mg/2 Ml Vial IV PUSH 4 mg Q4H PRN Administration Nausea Oxycodone HCl 5 mg 01/20/24 13:35 01/21/24 17:49 Oxycodone Hcl (*Crx) 5 Mg Tab Ir PO 5 mg Q4H PRN Administration Pain Rated 7-10 Pantoprazole Sodium 40 mg 01/19/24 09:00 01/22/24 08:06 Pantoprazole Sodium Iv 40 Mg Vial IV PUSH 40 mg QAM SARAH Administration Prochlorperazine Maleate 10 mg 01/20/24 14:43 01/21/24 12:32 Prochlorperazine Maleate 5 Mg Tablet PO 10 mg DAILY PRN Administration Indigestion Simvastatin 40 mg 01/21/24 09:00 01/22/24 08:04 Simvastatin 20 Mg Tablet PO 40 mg DAILY SARAH Administration Radiology Results: ITS Impressions Abdomen/Pelvis CT 01/19/24 07:45 IMPRESSION: Chronic prominent right hydronephrosis, not significantly changed since 02/10/2019 Chronic small nonobstructing calculus in each kidney, also present on 02/10/2019 Small sliding hiatal hernia Normal appendix Status post hysterectomy ADDENDUM: 01/19/24 1346 Addendum: There is suggestion of either a sludge/bile level or gallstone/bile level within the fundus of the gallbladder (series 3 images 87-90). IMPRESSION: Gallstones or sludge suggested in the gallbladder fundus Abdomen Ultrasound 01/19/24 16:31 IMPRESSION: 7 x 17 mm sludge ball versus gallbladder polyp. Labs Labs: Laboratory Results - last 24 hr 01/21/24 01/21/24 01/21/24 09:47 11:46 17:22 WBC 14.4 H RBC 3.70 L Hgb 11.4 L Hct 33.1 L MCV 89.5 MCH 30.8 MCHC 34.4 RDW 13.3 Plt Count 268 MPV 10.7 H Immature Gran % (Auto) 0.3 Neut % (Auto) 87.9 H Lymph % (Auto) 6.5 L [place] % (Auto) 4.6 Eos % (Auto) 0.3 Baso % (Auto) 0.4 Lymph # (Auto) 0.94 [place] # (Auto) 0.7 H Eos # (Auto) 0.0 Baso # (Auto) 0.1 Abs Immat Gran (auto) 0.05 H Absolute Neuts (auto) 12.6 H Absolute Nucleated RBC 0.000 Nucleated RBC % 0.0 Sodium 136 L Potassium 3.7 Chloride 100 Carbon Dioxide 31 H Anion Gap 5 BUN 19 H Creatinine 1.20 H Estim Creat Clear Calc 54 Estimated GFR 57 L Glucose 206 H POC Capillary Glucose 255 H 238 H Calcium 8.6 Total Bilirubin 0.7 AST 54 H ALT 77 H Alkaline Phosphatase 174 H Total Protein 8.0 Albumin 4.1 01/21/24 01/22/24 01/22/24 20:18 05:21 08:04 WBC 10.6 H RBC 3.39 L Hgb 10.2 L Hct 31.0 L MCV 91.4 MCH 30.1 MCHC 32.9 RDW 13.5 Plt Count 253 MPV 10.8 H Immature Gran % (Auto) 0.2 Neut % (Auto) 68.2 Lymph % (Auto) 25.1 [place] % (Auto) 3.5 Eos % (Auto) 2.5 Baso % (Auto) 0.5 Lymph # (Auto) 2.66 [place] # (Auto) 0.4 Eos # (Auto) 0.3 Baso # (Auto) 0.1 Abs Immat Gran (auto) 0.02 Absolute Neuts (auto) 7.2 H Absolute Nucleated RBC 0.000 Nucleated RBC % 0.0 Sodium 136 L Potassium 3.6 Chloride 105 Carbon Dioxide 29 Anion Gap 2 L BUN 21 H Creatinine 1.30 H Estim Creat Clear Calc 50 Estimated GFR 52 L Glucose 222 H POC Capillary Glucose 272 H 205 H Calcium 7.9 L Total Bilirubin 0.4 AST 43 H ALT 57 H Alkaline Phosphatase 172 H Total Protein 7.0 Albumin 3.5 Quality VTE Prophylaxis VTE prophylaxis: mechanical ordered
[2024-01-22 11:54] LABS: Glucose Point of Care 222 mg/dl (65-105)
[2024-01-22] MEDS: oxyCODONE HCL (*CRX) 5 MG TAB IR PO ×2 (13:18→18:40)
--- NOTE | 2024-01-22 13:21 | PM.PNGS ---
Progress Note: A&P Assessment and Plan (1) Cholecystitis with cholelithiasis: Code(s): K80.10 - Calculus of gallbladder with chronic cholecystitis without obstruction Status: Acute Assessment and Plan: Patient is postop day 2 following a laparoscopic cholecystectomy for acute on chronic cholecystitis secondary to gallbladder sludge. She is feeling better today in regards to her postoperative pain. This is much better controlled. She is no longer having any nausea or vomiting, and is tolerating a low fat diet. She is surgically stable for discharge when she is medically stable, and can follow-up in [address] Alvarado in our office. Plan I have discussed the patient's case and plan of care with Dr. Alvarado. Subjective Subjective Date/Time Seen: 01/22/24 13:21 Patient reports: feels better and pain is less Interval history: Feeling better today. RUQ pain is better. She is complaining of some back pain from the hospital bed. She denies any nausea or vomiting today. Tolerating her diet so far this morning. She is ambulating to the bathroom and steady, although still has some dizziness upon standing. Orthostatics were +. No other complaints at this time. Exam Const: General: comfortable and no acute distress GI: Inspection: non-distended GI Palp: Yes Soft to palpation, Yes Tenderness to palpation present (GI) (mild expected incisional tenderness and RUQ tenderness), No Guarding due to palpation present (GI), Yes No hepatosplenomegaly present and No Rebound tenderness present Auscultation: normal bowel sounds Objective Data Vital Signs Vital Signs: Vital Signs - 24 hr 01/21/24 15:00 01/21/24 20:50 01/21/24 21:21 Temperature 98.1 F 97.3 F L Pulse Rate 96 96 88 Respiratory Rate 18 18 18 Blood Pressure 117/56 L 140/57 L Pulse Oximetry 99 99 100 Oxygen Delivery Room Air Fraction of Inspired Oxygen 21 01/21/24 23:30 01/21/24 23:33 01/21/24 23:35 Temperature Pulse Rate 79 83 87 Respiratory Rate Blood Pressure 125/61 104/63 95/56 L Pulse Oximetry Oxygen Delivery Fraction of Inspired Oxygen 01/22/24 06:18 01/22/24 08:01 01/22/24 08:12 Temperature 97.2 F L 97.2 F L Pulse Rate 81 82 Respiratory Rate 18 16 Blood Pressure 102/54 L 140/56 L Pulse Oximetry 94 100 100 Oxygen Delivery Room Air Fraction of Inspired Oxygen 01/22/24 11:20 01/22/24 11:22 01/22/24 11:24 Temperature Pulse Rate 81 81 82 Respiratory Rate 16 16 18 Blood Pressure 139/60 133/70 111/54 L Pulse Oximetry 96 99 99 Oxygen Delivery Fraction of Inspired Oxygen Intake/Output Intake/Output: Intake & Output 01/19/24 01/20/24 01/21/24 01/22/24 23:59 23:59 23:59 23:59 Intake Total 1550 812 970 6310 Output Total 100 Balance 1450 514 916 0004 Meds/Results Medications: Active Medications Generic Name Dose Route Start Last Admin Trade Name Freq PRN Reason Stop Dose Admin Acetaminophen 1,000 mg 01/20/24 13:35 Acetaminophen 500 Mg Tablet PO Q6H PRN Mild Pain (1-3) or Fever Hydrocodone Bitart/Acetaminophen 1 tab 01/20/24 13:35 01/20/24 21:26 Hydrocodone/Acetaminophen (*Crx) 5-325 Mg Tablet PO 1 tab Q4H PRN Administration Pain Rated 4-6 Amlodipine Besylate 10 mg 01/20/24 09:00 01/22/24 08:04 Amlodipine Besylate 10 Mg Tablet PO 10 mg DAILY SARAH Administration Dextrose 12.5 gm 01/19/24 13:54 Dextrose 50% 25 Gm/50 Ml Syringe IV PUSH PRN PRN Hypoglycemia Protocol Docusate Sodium 100 mg 01/19/24 17:00 01/22/24 08:04 Docusate Sodium 100 Mg Capsule PO 100 mg BID SARAH Administration Fentanyl Citrate 25 mcg 01/20/24 11:31 01/20/24 14:06 Fentanyl Citrate Inj (*Crx) 100 Mcg/2 Ml Vial IV PUSH 25 mcg Q2M PRN Administration Pain Glucagon 1 mg 01/19/24 13:54 Glucagon For Inj 1 Mg Vial IM PRN PRN Hypoglycemia Protocol Glucose 15 gm 01/19/24 13:54 Glucose Oral Gel 15 Gm Of Glucse In 37.5 Gm Tube PO PRN PRN Hypoglycemia Protocol Hydrochlorothiazide 12.5 mg 01/20/24 09:00 01/22/24 08:04 Hydrochlorothiazide 12.5 Mg Capsule PO 12.5 mg DAILY SARAH Administration Hydromorphone HCl 1 mg 01/19/24 06:39 01/22/24 08:12 Hydromorphone Hcl Inj (*Crx) 1 Mg/Ml Syr IV PUSH 1 mg Q4H PRN Administration Pain Rated 7-10 Dextrose 1,000 mls @ 100 mls/hr 01/19/24 13:54 Dextrose 5% 1,000 Ml IVPB PRN PRN Hypoglycemia Protocol Sodium Chloride 1,000 mls @ 100 mls/hr 01/21/24 13:35 01/22/24 11:48 Normal Saline Iv IV CONT 100 mls/hr .Q10H SARAH Administration Insulin Aspart 2 - 5 units 01/19/24 17:00 01/22/24 12:15 Insulin Aspart (*Bkc) 100 Units/Ml SUB-Q 2 units TIDWM SARAH Administration Protocol Linaclotide 145 mcg 01/21/24 09:00 01/22/24 08:04 Linaclotide 145 Mcg Capsule PO 145 mcg DAILY SARAH Administration Lisinopril 40 mg 01/20/24 09:00 01/22/24 08:04 Lisinopril 20 Mg Tablet PO 40 mg DAILY SARAH Administration Miscellaneous Information 1 each 01/21/24 00:01 Med Rec Order Clarification XX 02/20/24 00:00 CLARIFY SARAH Miscellaneous Information 1 each 01/21/24 00:01 Med Rec Order Clarification XX 02/20/24 00:00 CLARIFY SARAH Miscellaneous Information 1 each 01/21/24 00:01 Med Rec Order Clarification XX 02/20/24 00:00 CLARIFY SARAH Non-Formulary Medication 1 unit 01/20/24 14:43 Insulin Lispro [Humalog Kwikpen Insulin] SUB-Q 02/19/24 14:42 ONCE SARAH Non-Formulary Medication 1 mg 01/27/24 09:00 Semaglutide [Ozempic] SUB-Q 02/26/24 08:59 WEEKLY SARAH Non-Formulary Medication 1 applic 01/20/24 14:43 Tretinoin TOPICAL DAILY PRN Rash Ondansetron HCl 4 mg 01/19/24 06:39 01/21/24 12:26 Ondansetron Inj 4 Mg/2 Ml Vial IV PUSH 4 mg Q4H PRN Administration Nausea Oxycodone HCl 5 mg 01/20/24 13:35 01/22/24 13:18 Oxycodone Hcl (*Crx) 5 Mg Tab Ir PO 5 mg Q4H PRN Administration Pain Rated 7-10 Pantoprazole Sodium 40 mg 01/19/24 09:00 01/22/24 08:06 Pantoprazole Sodium Iv 40 Mg Vial IV PUSH 40 mg QAM SARAH Administration Prochlorperazine Maleate 10 mg 01/20/24 14:43 01/21/24 12:32 Prochlorperazine Maleate 5 Mg Tablet PO 10 mg DAILY PRN Administration Indigestion Simvastatin 40 mg 01/21/24 09:00 01/22/24 08:04 Simvastatin 20 Mg Tablet PO 40 mg DAILY SARAH Administration Radiology Results: ITS Impressions Abdomen/Pelvis CT 01/19/24 07:45 IMPRESSION: Chronic prominent right hydronephrosis, not significantly changed since 02/10/2019 Chronic small nonobstructing calculus in each kidney, also present on 02/10/2019 Small sliding hiatal hernia Normal appendix Status post hysterectomy ADDENDUM: 01/19/24 1346 Addendum: There is suggestion of either a sludge/bile level or gallstone/bile level within the fundus of the gallbladder (series 3 images 87-90). IMPRESSION: Gallstones or sludge suggested in the gallbladder fundus Abdomen Ultrasound 01/19/24 16:31 IMPRESSION: 7 x 17 mm sludge ball versus gallbladder polyp. Labs Labs: Laboratory Results - last 24 hr 01/21/24 01/21/24 01/22/24 17:22 20:18 05:21 WBC 10.6 H RBC 3.39 L Hgb 10.2 L Hct 31.0 L MCV 91.4 MCH 30.1 MCHC 32.9 RDW 13.5 Plt Count 253 MPV 10.8 H Immature Gran % (Auto) 0.2 Neut % (Auto) 68.2 Lymph % (Auto) 25.1 [place] % (Auto) 3.5 Eos % (Auto) 2.5 Baso % (Auto) 0.5 Lymph # (Auto) 2.66 [place] # (Auto) 0.4 Eos # (Auto) 0.3 Baso # (Auto) 0.1 Abs Immat Gran (auto) 0.02 Absolute Neuts (auto) 7.2 H Absolute Nucleated RBC 0.000 Nucleated RBC % 0.0 Sodium 136 L Potassium 3.6 Chloride 105 Carbon Dioxide 29 Anion Gap 2 L BUN 21 H Creatinine 1.30 H Estim Creat Clear Calc 50 Estimated GFR 52 L Glucose 222 H POC Capillary Glucose 238 H 272 H Calcium 7.9 L Total Bilirubin 0.4 AST 43 H ALT 57 H Alkaline Phosphatase 172 H Total Protein 7.0 Albumin 3.5 01/22/24 01/22/24 08:04 11:49 WBC RBC Hgb Hct MCV MCH MCHC RDW Plt Count MPV Immature Gran % (Auto) Neut % (Auto) Lymph % (Auto) [place] % (Auto) Eos % (Auto) Baso % (Auto) Lymph # (Auto) [place] # (Auto) Eos # (Auto) Baso # (Auto) Abs Immat Gran (auto) Absolute Neuts (auto) Absolute Nucleated RBC Nucleated RBC % Sodium Potassium Chloride Carbon Dioxide Anion Gap BUN Creatinine Estim Creat Clear Calc Estimated GFR Glucose POC Capillary Glucose 205 H 222 H Calcium Total Bilirubin AST ALT Alkaline Phosphatase Total Protein Albumin
[2024-01-22 17:07] LABS: Glucose Point of Care 237 mg/dl (65-105)
[2024-01-22 20:41] LABS: Glucose Point of Care 269 mg/dl (65-105)
[2024-01-23] VITALS: BP 124/52; PULSE 92; RESP 12; TEMP 37.1; O2SAT 100
[2024-01-23] MEDS: oxyCODONE HCL (*CRX) 5 MG TAB IR PO ×2 (05:02→12:42)
[2024-01-23 05:43] VITALS: BP 152/80; PULSE 91; RESP 12; O2SAT 98
[2024-01-23 05:44] VITALS: BP 122/70; PULSE 94; RESP 12; O2SAT 98
[2024-01-23 05:58] LABS: Basophils Absolute Auto 0.1 K/mm3 (0.0-0.1); Basophils Percent Auto 0.6 % (0.2-1.2); Eosinophils Absolute Auto 0.3 K/mm3 (0-0.3); Eosinophils Percent Auto 3.4 % (0-4.4); Hematocrit 31.3 % (37.0-47.0); Hemoglobin 10.3 g/dL (12.0-15.0); Immature Granulocyte Absolute 0.02 K/mm3 (0.00-0.031); Immature Granulocyte Percent A 0.2 % (0-0.5); Lymphocytes Absolute Auto 2.47 K/mm3 (0.9-3.2); Lymphocytes Percent Auto 29.1 % (18.3-44.2); Mean Corpuscular HGB Conc 32.9 g/dl (32-36); Mean Corpuscular Volume 91.3 fl (80-100); Mean Platelet Volume 10.9 fl (7.4-10.4); Monocytes Absolute Auto 0.5 K/mm3 (0.1-0.6); Monocytes Percent Auto 5.4 % (2.6-8.5); Neutrophils Absolute Auto 5.2 K/mm3 (1.3-6.7); Neutrophils Percent Auto 61.3 % (45.5-73.1); Platelet Count Result 259 k/mm3 (150-375); Red Blood Count 3.43 M/mm3 (4.2-5.4); Red Cell Distribution Width 13.1 % (11.5-14.5); White Blood Count 8.5 K/mm3 (4.5-10.0)
[2024-01-23 06:15] LABS: Alanine Aminotransferase 40 U/L (6-35); Albumin Level 3.5 g/dL (3.5-5.1); Alkaline Phosphatase 181 U/L (38-126); Anion Gap 3 mmol/L (4-12); Aspartate Amino Transferase 24 U/L (14-36); Bilirubin,Total 0.4 mg/dL (0.2-1.3); Blood Urea Nitrogen 12 mg/dL (7-17); Calcium 8.1 mg/dL (8.4-10.2); Carbon Dioxide 28 mmol/L (22-30); Chloride 105 mmol/L (98-107); Estimated CRCL calculation 71 ml/min; Estimated Glomerular Filt Rate > 60; Glucose 236 mg/dL (65-110); Potassium 3.4 mmol/L (3.4-5.0); Sodium 136 mmol/L (137-145)
[2024-01-23 07:52] LABS: Glucose Point of Care 220 mg/dl (65-105)
[2024-01-23 08:00] VITALS: BP 122/71; PULSE 94; RESP 18; TEMP 36.7; O2SAT 100
[2024-01-23] MEDS: amLODIPine BESYLATE 10 MG TABLET PO (08:12)
[2024-01-23] MEDS: LINACLOTIDE 145 MCG CAPSULE PO (08:12)
[2024-01-23] MEDS: SIMVASTATIN 20 MG TABLET 40 MG PO (08:12)
[2024-01-23] MEDS: lisinopriL 20 MG TABLET 40 MG PO (08:12)
[2024-01-23] MEDS: PANTOPRAZOLE SODIUM IV 40 MG VIAL IV PUSH (08:13)
[2024-01-23] MEDS: SODIUM CHLORIDE 0.9% IV 1,000 ML 100 ML IV CONT (08:18)
[2024-01-23] MEDS: INSULIN ASPART (*BKC) 100 UNITS/ML SUB-Q ×2 (08:19→12:33)
--- NOTE | 2024-01-23 09:33 | P.PNIM_ITS ---
Progress Note: A&P Assessment and Plan (1) Sepsis: Code(s): A41.9 - Sepsis, unspecified organism Status: Acute Assessment and Plan: Meets SIRS criteria: HR and leukocytosis - lactic acid WNL - 1 L sepsis bolus given - suspected source: cholecystitis - blood cultures drawn on 01/18: prelim. negative - UA non concerning for infection - CT abdomen/pelvis: There is suggestion of either a sludge/bile level or gallstone/bile level within the fundus of the gallbladder (series 3 images 87- 90). 01/21: She remains afebrile and WBC improving. (2) Cholecystitis with cholelithiasis: Code(s): K80.10 - Calculus of gallbladder with chronic cholecystitis without obstruction Status: Acute Assessment and Plan: Suspect cholecystitis - LFTs elevated: tot bili 1.1, AST 221, ALT 107, alk phos 273. Lipase WNL. - CT abdomen/pelvis: There is suggestion of either a sludge/bile level or gallstone/bile level within the fundus of the gallbladder (series 3 images 87- 90). - Abdomen US: Sludge or stones are suggested in the dependent aspect of the gallbladder fundus on 01/19/2024 CT abdomen examination, without definite correlate on this ultrasound examination. Consider second look ultrasound with attention specifically to the gallbladder. - Repeat US: 7 x 17 mm sludge ball versus gallbladder polyp. - Analgesics - Antibiotics: Cipro and flagyl started on 01/18 - Diet: Full liquid diet, advance as tolerated - Monitor vital signs, I and O's, check stool output, neuro status and patient is a fall risk - Monitor serum electrolytes and CBC - Monitor lactic acid - Surgery consulted, appreciate recommendatiosn s/p laparoscopic cholecystectomy on 01/[address] Alvarado - GI consulted, appreciate recommendations If patient continues to have discomfort after the gallbladder surgery she may need an upper scope at some time. It can be decided after seeing the results of cholecystectomy 01/20: Patient had an episode of emesis with meals. Improved nausea with zofran. Remains on current diet per surgery but started on IV fluids. 01/21: Advanced to low fat diet. Tolerating well. Cleared for discharge from surgical stand point. (3) Elevated liver enzymes: Code(s): R74.8 - Abnormal levels of other serum enzymes Status: Acute Assessment and Plan: LFTs elevated: tot bili 1.1, AST 221, ALT 107, alk phos 273 on admission. - LFTs: tot bili 0.4, AST 43, ALT 57, Alk phos 172 - CT abdomen/pelvis: There is suggestion of either a sludge/bile level or gallstone/bile level within the fundus of the gallbladder (series 3 images 87- 90). - Abdomen US: Sludge or stones are suggested in the dependent aspect of the gallbladder fundus on 01/19/2024 CT abdomen examination, without definite co rrelate on this ultrasound examination. Consider second look ultrasound with attention specifically to the gallbladder. - Repeat US: 7 x 17 mm sludge ball versus gallbladder polyp. - Holding simvastatin, resume when appropriate - Monitor on daily labs - GI consulted, appreciate recommendations (4) Diabetes: Code(s): E11.9 - Type 2 diabetes mellitus without complications Status: Chronic Assessment and Plan: - hypoglycemia protocol - POC blood glucose ACHS - home medication - lispro 65 units in the am and 55 units in the pm and ozempic - correct regimen ordered - SSI TIDWM, will likely need to resume lispro dosing however patient has been NPO pending imaging. - A1C 7.8 (5) Hypertension: Code(s): I10 - Essential (primary) hypertension Status: Chronic Assessment and Plan: Chronic, continue home medications. - amlodipine 10 mg daily - lisinopril 40 mg daily - HCTZ 12.5 mg daily - Monitor Patient having positive orthostatic, however will continue her home antihypertensives as she becomes severely hypertensive without them. Continue on IV fluids. Monitor. 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 Patient is pleasant lying in bed. She states that she stood from the toilet and went to return to her bed when she became very dizzy/lightheaded with associated clamminess. Orthostatic vitals signs are positive. Patient remains on fluids. Patient states that her pain is doing much better. She is tolerating a low fat diet and denies nausea/vomiting. Surgery evaluated patient and she has been cleared for discharge from there stand point. She has no other complaints denying chest pain, shortness of breath and palpitations. 01/22- assuming care. pt is seen and examined. Review of Systems Review of Systems: All systems reviewed & are unremarkable except as noted in HPI and below Exam Narrative: AF HR 86 RR 18 SPO2 97 BP 120/50 General: female in no acute respiratory distress who is nontoxic appearing, lying semi recumbent in bed. HEENT: Normocephalic. Atraumatic. Extraocular movement intact. Sclera clear and anicteric. No facial asymmetry. Chest: Lungs are clear to auscultation bilaterally. No wheezes or crackles. CV: Heart was regular rate and rhythm. S1-S2. No murmurs, gallops, or rubs. Abd: Abdomen was soft. Tenderness to RUQ/epigastric region around incision sites. Incisions are well healing. Nondistended. Positive bowel sounds. Well healing incisions. Const: General: comfortable Objective Data Vital Signs Vital Signs: Vital Signs - 24 hr 01/22/24 11:20 01/22/24 11:22 01/22/24 11:24 Temperature Pulse Rate 81 81 82 Respiratory Rate 16 16 18 Blood Pressure 139/60 133/70 111/54 L Pulse Oximetry 96 99 99 01/22/24 14:54 01/23/24 00:00 01/22/24 20:00 Temperature 97.6 F 98.8 F 98.4 F Pulse Rate 86 92 91 Respiratory Rate 18 12 12 Blood Pressure 120/50 L 124/52 L 166/79 H Pulse Oximetry 97 100 99 01/23/24 05:43 01/23/24 05:44 Temperature Pulse Rate 91 94 Respiratory Rate 12 12 Blood Pressure 152/80 H 122/70 Pulse Oximetry 98 98 Intake/Output Intake/Output: Intake & Output 01/20/24 01/21/24 01/22/24 01/23/24 23:59 23:59 23:59 23:59 Intake Total 843 169 5786 1146.7 Balance 742 905 9028 1146.7 Meds/Results Medications: Active Medications Generic Name Dose Route Start Last Admin Trade Name Freq PRN Reason Stop Dose Admin Acetaminophen 1,000 mg 01/20/24 13:35 Acetaminophen 500 Mg Tablet PO Q6H PRN Mild Pain (1-3) or Fever Hydrocodone Bitart/Acetaminophen 1 tab 01/20/24 13:35 01/20/24 21:26 Hydrocodone/Acetaminophen (*Crx) 5-325 Mg Tablet PO 1 tab Q4H PRN Administration Pain Rated 4-6 Amlodipine Besylate 10 mg 01/20/24 09:00 01/23/24 08:12 Amlodipine Besylate 10 Mg Tablet PO 10 mg DAILY SARAH Administration Dextrose 12.5 gm 01/19/24 13:54 Dextrose 50% 25 Gm/50 Ml Syringe IV PUSH PRN PRN Hypoglycemia Protocol Docusate Sodium 100 mg 01/19/24 17:00 01/23/24 08:13 Docusate Sodium 100 Mg Capsule PO Not Given BID SARAH Fentanyl Citrate 25 mcg 01/20/24 11:31 01/20/24 14:06 Fentanyl Citrate Inj (*Crx) 100 Mcg/2 Ml Vial IV PUSH 25 mcg Q2M PRN Administration Pain Glucagon 1 mg 01/19/24 13:54 Glucagon For Inj 1 Mg Vial IM PRN PRN Hypoglycemia Protocol Glucose 15 gm 01/19/24 13:54 Glucose Oral Gel 15 Gm Of Glucse In 37.5 Gm Tube PO PRN PRN Hypoglycemia Protocol Hydrochlorothiazide 12.5 mg 01/20/24 09:00 01/22/24 08:04 Hydrochlorothiazide 12.5 Mg Capsule PO 12.5 mg DAILY SARAH Administration Hydromorphone HCl 1 mg 01/19/24 06:39 01/22/24 08:12 Hydromorphone Hcl Inj (*Crx) 1 Mg/Ml Syr IV PUSH 1 mg Q4H PRN Administration Pain Rated 7-10 Dextrose 1,000 mls @ 100 mls/hr 01/19/24 13:54 Dextrose 5% 1,000 Ml IVPB PRN PRN Hypoglycemia Protocol Sodium Chloride 1,000 mls @ 100 mls/hr 01/21/24 13:35 01/23/24 08:18 Normal Saline Iv IV CONT 100 mls/hr .Q10H SARAH Administration Insulin Aspart 2 - 5 units 01/19/24 17:00 01/23/24 08:19 Insulin Aspart (*Bkc) 100 Units/Ml SUB-Q 2 units TIDWM SARAH Administration Protocol Linaclotide 145 mcg 01/21/24 09:00 01/23/24 08:12 Linaclotide 145 Mcg Capsule PO 145 mcg DAILY SARAH Administration Lisinopril 40 mg 01/20/24 09:00 01/23/24 08:12 Lisinopril 20 Mg Tablet PO 40 mg DAILY SARAH Administration Miscellaneous Information 1 each 01/21/24 00:01 Med Rec Order Clarification XX 02/20/24 00:00 CLARIFY SARAH Miscellaneous Information 1 each 01/21/24 00:01 Med Rec Order Clarification XX 02/20/24 00:00 CLARIFY SARAH Miscellaneous Information 1 each 01/21/24 00:01 Med Rec Order Clarification XX 02/20/24 00:00 CLARIFY SARAH Non-Formulary Medication 1 unit 01/20/24 14:43 Insulin Lispro [Humalog Kwikpen Insulin] SUB-Q 02/19/24 14:42 ONCE SARAH Non-Formulary Medication 1 mg 01/27/24 09:00 Semaglutide [Ozempic] SUB-Q 02/26/24 08:59 WEEKLY SARAH Non-Formulary Medication 1 applic 01/20/24 14:43 Tretinoin TOPICAL DAILY PRN Rash Ondansetron HCl 4 mg 01/19/24 06:39 01/21/24 12:26 Ondansetron Inj 4 Mg/2 Ml Vial IV PUSH 4 mg Q4H PRN Administration Nausea Oxycodone HCl 5 mg 01/20/24 13:35 01/23/24 05:02 Oxycodone Hcl (*Crx) 5 Mg Tab Ir PO 5 mg Q4H PRN Administration Pain Rated 7-10 Pantoprazole Sodium 40 mg 01/19/24 09:00 01/23/24 08:13 Pantoprazole Sodium Iv 40 Mg Vial IV PUSH 40 mg QAM SARAH Administration Prochlorperazine Maleate 10 mg 01/20/24 14:43 01/21/24 12:32 Prochlorperazine Maleate 5 Mg Tablet PO 10 mg DAILY PRN Administration Indigestion Simvastatin 40 mg 01/21/24 09:00 01/23/24 08:12 Simvastatin 20 Mg Tablet PO 40 mg DAILY SARAH Administration Radiology Results: ITS Impressions Abdomen/Pelvis CT 01/19/24 07:45 IMPRESSION: Chronic prominent right hydronephrosis, not significantly changed since 02/10/2019 Chronic small nonobstructing calculus in each kidney, also present on 02/10/2019 Small sliding hiatal hernia Normal appendix Status post hysterectomy ADDENDUM: 01/19/24 1346 Addendum: There is suggestion of either a sludge/bile level or gallstone/bile level within the fundus of the gallbladder (series 3 images 87-90). IMPRESSION: Gallstones or sludge suggested in the gallbladder fundus Abdomen Ultrasound 01/19/24 16:31 IMPRESSION: 7 x 17 mm sludge ball versus gallbladder polyp. Labs Labs: Laboratory Results - last 24 hr 01/22/24 01/22/24 01/22/24 11:49 17:02 20:22 WBC RBC Hgb Hct MCV MCH MCHC RDW Plt Count MPV Immature Gran % (Auto) Neut % (Auto) Lymph % (Auto) [place] % (Auto) Eos % (Auto) Baso % (Auto) Lymph # (Auto) [place] # (Auto) Eos # (Auto) Baso # (Auto) Abs Immat Gran (auto) Absolute Neuts (auto) Absolute Nucleated RBC Nucleated RBC % Sodium Potassium Chloride Carbon Dioxide Anion Gap BUN Creatinine Estim Creat Clear Calc Estimated GFR Glucose POC Capillary Glucose 222 H 237 H 269 H Calcium Total Bilirubin AST ALT Alkaline Phosphatase Total Protein Albumin 01/23/24 01/23/24 05:24 07:50 WBC 8.5 RBC 3.43 L Hgb 10.3 L Hct 31.3 L MCV 91.3 MCH 30.0 MCHC 32.9 RDW 13.1 Plt Count 259 MPV 10.9 H Immature Gran % (Auto) 0.2 Neut % (Auto) 61.3 Lymph % (Auto) 29.1 [place] % (Auto) 5.4 Eos % (Auto) 3.4 Baso % (Auto) 0.6 Lymph # (Auto) 2.47 [place] # (Auto) 0.5 Eos # (Auto) 0.3 Baso # (Auto) 0.1 Abs Immat Gran (auto) 0.02 Absolute Neuts (auto) 5.2 Absolute Nucleated RBC 0.000 Nucleated RBC % 0.0 Sodium 136 L Potassium 3.4 Chloride 105 Carbon Dioxide 28 Anion Gap 3 L BUN 12 D Creatinine 0.90 Estim Creat Clear Calc 71 Estimated GFR > 60 Glucose 236 H POC Capillary Glucose 220 H Calcium 8.1 L Total Bilirubin 0.4 AST 24 ALT 40 H Alkaline Phosphatase 181 H Total Protein 7.0 Albumin 3.5 Quality VTE Prophylaxis VTE prophylaxis: mechanical ordered
[2024-01-23 12:01] LABS: Glucose Point of Care 265 mg/dl (65-105)
--- NOTE | 2024-01-23 16:24 | P.PNGS_ITS ---
Progress Note: A&P Assessment and Plan (1) Cholecystitis with cholelithiasis: Code(s): K80.10 - Calculus of gallbladder with chronic cholecystitis without obstruction Status: Acute Assessment and Plan: Patient is postop day following a laparoscopic cholecystectomy for acute on chronic cholecystitis secondary to gallbladder sludge. Her incisional pain is well controlled and she is tolerating a diet. She is surgically stable for discharge when she is medically stable, and can follow-up in [address] Alvarado in our office. I switched her pain medication to oxycodone for her discharge as the hydrocodone was causing itching. Plan I have discussed the patient's case and plan of care with Dr. Alvarado. Subjective Subjective Date/Time Seen: 01/23/24 16:24 Post Op day: 3 (Laparoscopic cholecystectomy) Patient reports: no new complaints, feels better, pain is less, tolerating a regular diet, voiding w/o difficulty, flatus, bowel movement and afebrile Interval history: Patient is feeling much better today. She is ambulating well and reports her incisional pain well controlled. She stopped taking the hydrocodone because she had severe itching and has only been using the oxycodone which she is tolerating well. No nausea or vomiting. No acute events overnight. Exam Const: General: comfortable and no acute distress GI: Inspection: non-distended and incision (incisions dry and intact) GI Palp: Yes Soft to palpation, Yes Tenderness to palpation present (GI) (incisional) and No Guarding due to palpation present (GI) Auscultation: normal bowel sounds Objective Data Vital Signs Vital Signs: Vital Signs - 24 hr 01/23/24 00:00 01/22/24 20:00 01/23/24 05:43 Temperature 98.8 F 98.4 F Pulse Rate 92 91 91 Respiratory Rate 12 12 12 Blood Pressure 124/52 L 166/79 H 152/80 H Pulse Oximetry 100 99 98 Oxygen Delivery 01/23/24 05:44 01/23/24 08:10 01/23/24 08:00 Temperature 98.0 F Pulse Rate 94 94 Respiratory Rate 12 18 Blood Pressure 122/70 122/71 Pulse Oximetry 98 100 Oxygen Delivery Room Air Intake/Output Intake/Output: Intake & Output 01/20/24 01/21/24 01/22/24 01/23/24 23:59 23:59 23:59 23:59 Intake Total 446 300 7054 1506.7 Balance 808 876 8772 1506.7 Meds/Results Medications: Active Medications Generic Name Dose Route Start Last Admin Trade Name Freq PRN Reason Stop Dose Admin Acetaminophen 1,000 mg 01/20/24 13:35 Acetaminophen 500 Mg Tablet PO Q6H PRN Mild Pain (1-3) or Fever Hydrocodone Bitart/Acetaminophen 1 tab 01/20/24 13:35 01/20/24 21:26 Hydrocodone/Acetaminophen (*Crx) 5-325 Mg Tablet PO 1 tab Q4H PRN Administration Pain Rated 4-6 Amlodipine Besylate 10 mg 01/20/24 09:00 01/23/24 08:12 Amlodipine Besylate 10 Mg Tablet PO 10 mg DAILY SARAH Administration Dextrose 12.5 gm 01/19/24 13:54 Dextrose 50% 25 Gm/50 Ml Syringe IV PUSH PRN PRN Hypoglycemia Protocol Docusate Sodium 100 mg 01/19/24 17:00 01/23/24 08:13 Docusate Sodium 100 Mg Capsule PO Not Given BID SARAH Fentanyl Citrate 25 mcg 01/20/24 11:31 01/20/24 14:06 Fentanyl Citrate Inj (*Crx) 100 Mcg/2 Ml Vial IV PUSH 25 mcg Q2M PRN Administration Pain Glucagon 1 mg 01/19/24 13:54 Glucagon For Inj 1 Mg Vial IM PRN PRN Hypoglycemia Protocol Glucose 15 gm 01/19/24 13:54 Glucose Oral Gel 15 Gm Of Glucse In 37.5 Gm Tube PO PRN PRN Hypoglycemia Protocol Hydrochlorothiazide 12.5 mg 01/20/24 09:00 01/23/24 12:34 Hydrochlorothiazide 12.5 Mg Capsule PO Not Given DAILY SARAH Hydromorphone HCl 1 mg 01/19/24 06:39 01/22/24 08:12 Hydromorphone Hcl Inj (*Crx) 1 Mg/Ml Syr IV PUSH 1 mg Q4H PRN Administration Pain Rated 7-10 Dextrose 1,000 mls @ 100 mls/hr 01/19/24 13:54 Dextrose 5% 1,000 Ml IVPB PRN PRN Hypoglycemia Protocol Sodium Chloride 1,000 mls @ 100 mls/hr 01/21/24 13:35 01/23/24 08:18 Normal Saline Iv IV CONT 100 mls/hr .Q10H SARAH Administration Insulin Aspart 2 - 5 units 01/19/24 17:00 01/23/24 12:33 Insulin Aspart (*Bkc) 100 Units/Ml SUB-Q 3 units TIDWM SARAH Administration Protocol Linaclotide 145 mcg 01/21/24 09:00 01/23/24 08:12 Linaclotide 145 Mcg Capsule PO 145 mcg DAILY SARAH Administration Lisinopril 40 mg 01/20/24 09:00 01/23/24 08:12 Lisinopril 20 Mg Tablet PO 40 mg DAILY SARAH Administration Miscellaneous Information 1 each 01/21/24 00:01 Med Rec Order Clarification XX 02/20/24 00:00 CLARIFY SARAH Miscellaneous Information 1 each 01/21/24 00:01 Med Rec Order Clarification XX 02/20/24 00:00 CLARIFY SARAH Miscellaneous Information 1 each 01/21/24 00:01 Med Rec Order Clarification XX 02/20/24 00:00 CLARIFY SARAH Non-Formulary Medication 1 unit 01/20/24 14:43 Insulin Lispro [Humalog Kwikpen Insulin] SUB-Q 02/19/24 14:42 ONCE SARAH Non-Formulary Medication 1 mg 01/27/24 09:00 Semaglutide [Ozempic] SUB-Q 02/26/24 08:59 WEEKLY SARAH Non-Formulary Medication 1 applic 01/20/24 14:43 Tretinoin TOPICAL DAILY PRN Rash Ondansetron HCl 4 mg 01/19/24 06:39 01/21/24 12:26 Ondansetron Inj 4 Mg/2 Ml Vial IV PUSH 4 mg Q4H PRN Administration Nausea Oxycodone HCl 5 mg 01/20/24 13:35 01/23/24 12:42 Oxycodone Hcl (*Crx) 5 Mg Tab Ir PO 5 mg Q4H PRN Administration Pain Rated 7-10 Pantoprazole Sodium 40 mg 01/19/24 09:00 01/23/24 08:13 Pantoprazole Sodium Iv 40 Mg Vial IV PUSH 40 mg QAM SARAH Administration Prochlorperazine Maleate 10 mg 01/20/24 14:43 01/21/24 12:32 Prochlorperazine Maleate 5 Mg Tablet PO 10 mg DAILY PRN Administration Indigestion Simvastatin 40 mg 01/21/24 09:00 01/23/24 08:12 Simvastatin 20 Mg Tablet PO 40 mg DAILY SARAH Administration Radiology Results: ITS Impressions Abdomen/Pelvis CT 01/19/24 07:45 IMPRESSION: Chronic prominent right hydronephrosis, not significantly changed since 02/10/2019 Chronic small nonobstructing calculus in each kidney, also present on 02/10/2019 Small sliding hiatal hernia Normal appendix Status post hysterectomy ADDENDUM: 01/19/24 1346 Addendum: There is suggestion of either a sludge/bile level or gallstone/bile level within the fundus of the gallbladder (series 3 images 87-90). IMPRESSION: Gallstones or sludge suggested in the gallbladder fundus Abdomen Ultrasound 01/19/24 16:31 IMPRESSION: 7 x 17 mm sludge ball versus gallbladder polyp. Labs Labs: Laboratory Results - last 24 hr 01/22/24 01/22/24 01/23/24 17:02 20:22 05:24 WBC 8.5 RBC 3.43 L Hgb 10.3 L Hct 31.3 L MCV 91.3 MCH 30.0 MCHC 32.9 RDW 13.1 Plt Count 259 MPV 10.9 H Immature Gran % (Auto) 0.2 Neut % (Auto) 61.3 Lymph % (Auto) 29.1 [place] % (Auto) 5.4 Eos % (Auto) 3.4 Baso % (Auto) 0.6 Lymph # (Auto) 2.47 [place] # (Auto) 0.5 Eos # (Auto) 0.3 Baso # (Auto) 0.1 Abs Immat Gran (auto) 0.02 Absolute Neuts (auto) 5.2 Absolute Nucleated RBC 0.000 Nucleated RBC % 0.0 Sodium 136 L Potassium 3.4 Chloride 105 Carbon Dioxide 28 Anion Gap 3 L BUN 12 D Creatinine 0.90 Estim Creat Clear Calc 71 Estimated GFR > 60 Glucose 236 H POC Capillary Glucose 237 H 269 H Calcium 8.1 L Total Bilirubin 0.4 AST 24 ALT 40 H Alkaline Phosphatase 181 H Total Protein 7.0 Albumin 3.5 01/23/24 01/23/24 07:50 11:49 WBC RBC Hgb Hct MCV MCH MCHC RDW Plt Count MPV Immature Gran % (Auto) Neut % (Auto) Lymph % (Auto) [place] % (Auto) Eos % (Auto) Baso % (Auto) Lymph # (Auto) [place] # (Auto) Eos # (Auto) Baso # (Auto) Abs Immat Gran (auto) Absolute Neuts (auto) Absolute Nucleated RBC Nucleated RBC % Sodium Potassium Chloride Carbon Dioxide Anion Gap BUN Creatinine Estim Creat Clear Calc Estimated GFR Glucose POC Capillary Glucose 220 H 265 H Calcium Total Bilirubin AST ALT Alkaline Phosphatase Total Protein Albumin
--- NOTE | 2024-01-24 07:00 | P.DS_ITS ---
DS: Admitting Diagnosis Discharge Date 01/23/24 Admitting Diagnosis abd pain DS: Discharge Diagnosis Discharge Diagnosis (1) Sepsis: Code(s): A41.9 - Sepsis, unspecified organism Status: Acute (2) Cholecystitis with cholelithiasis: Code(s): K80.10 - Calculus of gallbladder with chronic cholecystitis without obstruction Status: Acute (3) Elevated liver enzymes: Code(s): R74.8 - Abnormal levels of other serum enzymes Status: Acute (4) Diabetes: Code(s): E11.9 - Type 2 diabetes mellitus without complications Status: Chronic (5) Hypertension: Code(s): I10 - Essential (primary) hypertension Status: Chronic (6) Hydronephrosis, right: Code(s): N13.30 - Unspecified hydronephrosis Status: Acute DS: Summary Hospital Course Hospital Course: Interval history: 53 year old female with past medical history of hypertension, dyslipidemia, GERD, diabetes and 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 Patient is pleasant lying in bed. She states that she stood from the toilet and went to return to her bed when she became very dizzy/lightheaded with associated clamminess. Orthostatic vitals signs are positive. Patient remains on fluids. Patient states that her pain is doing much better. She is tolerating a low fat diet and denies nausea/vomiting. Surgery evaluated patient and she has been cleared for discharge from there stand point. She has no other complaints denying chest pain, shortness of breath and palpitations. Following problems were addressed: # Cholecystitis with cholelithiasis Antibiotics: Cipro and flagyl started on 01/18 -completed Patient had a laparoscopic cholecystectomy for acute on chronic cholecystitis secondary to gallbladder sludge. Her incisional pain is well controlled and she is tolerating a diet. She is surgically stable for discharge follow-up in [address] Sagastume in our office. pain meds: oxycodone rx sent per surgery (hydrocodone was causing itching). # sepsis Meets SIRS criteria: HR and leukocytosis - lactic acid WNL - 1 L sepsis bolus given - suspected source: cholecystitis - blood cultures drawn on 01/18: prelim. negative - UA non concerning for infection - CT abdomen/pelvis: There is suggestion of either a sludge/bile level or gallstone/bile level within the fundus of the gallbladder (series 3 images 87- 90). 01/21: She remains afebrile and WBC improved resolved # t2dm - hypoglycemia protocol - POC blood glucose ACHS - home medication - lispro 65 units in the am and 55 units in the pm and ozempic - A1C 7.8 no changes were made to home regimen # htn amlodipine 10 mg daily - lisinopril 40 mg daily - HCTZ 12.5 mg daily Following chnages were made: HCTZ stopped monitor BP daily and f/u with PCP for further adjustment and management Status at Discharge Functional status at discharge: independent ambulation Overall status at discharge: patient is progressing back to baseline Time Spent with Patient Time attestation: Total time spent providing and/or coordinating discharge services: Time spent: Greater than 30 minutes Exam Const: General: comfortable Resp: Effort & Inspection: normal respiratory effort Cardio: Rate: regular rate Rhythm: regular rhythm GI: GI Palp: Yes Soft to palpation Auscultation: normal bowel sounds Skin: General skin exam: normal color Neuro: Motor exam (neuro): 5/5 motor strength present throughout Psych: Affect: normal affect DS: Data Data Completed and Pending Completed studies during hospitalization: Pending at discharge 01/20/24 12:42 Surgical [PTH] Routine Labs on day of discharge: Labs from last 24 hours 01/23/24 01/23/24 11:49 07:50 POC Capillary Glucose 265 H 220 H Preliminary micro results at discharge 01/19/24 11:33 Blood Culture - Preliminary Blood 01/19/24 08:57 Blood Culture - Preliminary Blood Discharge Plan Discharge Consulting providers: Live Sagastume Discharging Clinician: Haley Alexander Patient Disposition: Home, Self-Care Activity: may shower, no driving and other - see discharge instructions Diet: low fat Wound Care Instructions: incision open to air Discharge Instructions: DISCHARGE INSTRUCTION SHEET FOR HERNIA, GALLBLADDER AND APPENDIX SURGERIES DR. SAGASTUME 1. May shower in 24 hours, no soaking in bath x 2weeks. 2. Call office for: * Wound increasingly painful or bleeding * Vomiting * Fever of greater than 101 degrees 3. If no bowel movement for three days, take 1 oz. (30 ml) Milk of Magnesia or MiraLax 17g 1 to 2 times daily. 4. No heavy lifting > 10-15 pounds x 2 weeks for laparoscopic cholecystectomy or appendectomy. 5. No driving for 3 days or while taking narcotic pain medications. 6. Ice to surgical site for 48 hours (30 min on, then 30 min off). 7. Up walking 10-30 minutes three times per day. 8. Resume previous home medications. 9. Call to schedule a follow-up with Dr. Sagastume in the office in 2 weeks. ([phone]) 10. Oral pain medications prescription sent to pharmacy. Take Tylenol 500mg every 6 hours and Ibuprofen 600mg every 6 hours for the first 2 days, then as needed. 11. NUTRITION: Start out by drinking fluids and increase your diet as tolerated. If you experience nausea, try dry toast, crackers, and 7-UP. If nausea or vomiting persists, contact your surgeon?s office. 12. Gallbladders-Low Fat Diet for 2 weeks Patient Instructions: Antibiotic Form Stand Alone Forms: General Discharge Information Follow-up/Referrals: Live Sagastume MD [Physician] - 2 Weeks Discharge Medications: New oxycodone-acetaminophen [Percocet] 5-325 mg tablet 1 tablet PO Q6H PRN (Reason: pain) Qty: 14 0RF Rx Instructions: Take 0.5 - 1 tablet every 6 hours for pain ondansetron 4 mg Tablet,Disintegrating 4 mg PO Q6H Qty: 20 0RF Continued prochlorperazine maleate [Compazine] 10 mg tablet 10 mg PO DAILY PRN (Reason: Indigestion) simvastatin 40 mg tablet 40 mg PO DAILY amlodipine 10 mg tablet 10 mg PO DAILY tretinoin 0.05 % cream 1 applic TOPICAL DAILY PRN (Reason: Rash) Patient Comments: Takes it for Rosacea on her face Linzess 145 mcg capsule 145 mcg PO DAILY Ozempic 1 mg/dose (4 mg/3 mL) pen injector 1 mg SUBCUT WEEKLY Rx Instructions: Patient states she takes on Saturdays lisinopril 40 mg Tablet 40 mg PO DAILY insulin lispro [Humalog KwikPen Insulin] 100 unit/mL Insulin Pen 1 unit SUBCUT ONCE Discontinued hydrochlorothiazide 12.5 mg tablet 12.5 mg PO DAILY Date of admission: 01/20/24 10:06 Primary Care Provider: Oj Downey Admitting Provider: Kaylee Casas Attending physician on admission: Kaylee Casas Condition: Stable Quality VTE Prophylaxis VTE prophylaxis: mechanical ordered Hospitalist MIPS Heart Failure (Exclusion) Patient has history of Heart Transplant or Left Ventricular Assistive Device?: No IF YES, STOP HERE Heart Failure (Qualifier) Patient has current or prior documentation of LVEF less than or equal to 40%, or mod/servere depressed LVSF?: No IF NO, STOP HERE
== END 2024-01-23 16:50 | disposition home or self-care (01) | DRG 854 ==
LOC: ANHED 06:42 → ANH2MED 08:25
PROVIDERS: Student in an Organized Health Care Education/Training Program; Surgery; Admitting Provider Internal Medicine; Emergency Provider Emergency Medicine; PCP Internal Medicine; Visit Provider Nurse Practitioner
PROC: 0FT44ZZ Resection of Gallbladder, Percutaneous Endoscopic Approach (ICD-10-PCS; CPT 47562; principal; 2024-01-20 12:30)
DX: A41.9 Sepsis, unspecified organism (principal); K80.12 Calculus of gallbladder with acute and chronic cholecystitis without obstruction; N13.30 Unspecified hydronephrosis; I10 Essential (primary) hypertension; E11.9 Type 2 diabetes mellitus without complications; E78.5 Hyperlipidemia, unspecified; K21.9 Gastro-esophageal reflux disease without esophagitis; Q63.3 Hyperplastic and giant kidney; Z89.432 Acquired absence of left foot; Z79.4 Long term (current) use of insulin
CPT/HCPCS: 36415; 74177; 76705; 80053; 81001; 82948; 83036; 83605; 83690; 83735; 84484; 85025; 85610; 85730; 86850; 86900; 86901; 87040; 88304; 93005; 96361; 96365; 96366; 96375; 96376; 99285; A9270; G0378; J0330; J0744; J1100; J1171; J1200; J1815; J1836; J1885; J2003; J2004; J2250; J2405; J2470; J2704; J3010; J3475; J7030; J7120; Q9967

== ENCOUNTER 2024-02-25 13:14 | Emergency (ER) | payer MEDICARE, SELFPAY ==
[2024-02-25] VITALS (17 sets, daily range): BP systolic 131–168; BP diastolic 77–91; PULSE 87–97; RESP 10–20; TEMP 36.4; O2SAT 98–100
--- NOTE | ~2024-02-25 | CT_ITS ---
CT abdomen pelvis w con Ordering provider: Brigid Weathers PA-C History: 53 years Female with . RUQ pain, recent cholecystectomy . Comparison: January 19, 2024 Technique: CT abdomen and pelvis with IV and without oral contrast. Automated exposure control and it erative reconstruction technique were employed. The dose-length product was 685.85 mGy-cm. 100 mL Omn ipaque 350 was given IV. Findings: VISUALIZED LOWER CHEST: Normal. UPPER ABDOMINAL ORGANS: Liver: Normal. Gallbladder: Status post cholecystectomy. Spleen: Small hypodensities which may be small cysts. Benign calcifications. Stomach/duodenum: Normal. Pancreas: Normal. Adrenals: Normal. Kidneys: Hydronephrotic changes in the right kidney unchanged from previous examination. Early contra st excretion versus Stones is noted in multiple calyces. No ureteric stones seen. stone seen in the left kidney midpole measuring 4 mm. PELVIC ORGANS: The bladder is underfilled. BOWEL AND MESENTERY: Colon: No evidence of diverticulitis. Normal appendix. Small Bowel: Normal. No obstruction. Peritoneum/mesentery: No free air or free fluid. No mesenteric lymphadenopathy. RETROPERITONEUM: Mild atheromatous disease of the abdominal aorta. No retroperitoneal lymphadenopat hy. MUSCULOSKELETAL: Superficial soft tissues: The superficial soft tissues are normal. Bones: Normal spine. IMPRESSION: 1. Right kidney hydronephrotic changes unchanged from previous examination. Possible multiple stones in the calyces versus early contrast excretion. 2. Left kidney stone. 3. Status post cholecystectomy. No definite collection seen. Reviewed, dictated and finalized at location A. [facility] IMPRESSION: 1. Right kidney hydronephrotic changes unchanged from previous examination. Po ssible multiple stones in the calyces versus early contrast excretion. 2. Left kidney stone. 3. Status post cholecystectomy. No definite collection seen.
--- NOTE | 2024-02-25 14:21 | ED.ABDPAIN ---
HPI - Abdominal Pain General Chief Complaint: Abdominal Pain <Brigid Weathers PA-C - Last Filed: 02/26/24 11:32> Stated Complaint: ABD PAIN X1D. HX SUMIT 01/25/24 <Brigid Weathers PA-C - Last Filed: 02/26/24 11:32> Time Seen by Provider: 02/25/24 14:21 <Brigid Weathers PA-C - Last Filed: 02/26/24 11:32> Focused HPI: This is a 53 year old female that presents to the ER for epigastric abdominal discomfort. Reports recent cholecystectomy and that her pain feels similar. Reports associated nausea and vomiting. GENERAL: Well-appearing, well-nourished, and in no acute distress. HEAD: Normocephalic, atraumatic. CHEST: Clear to auscultation. ?No respiratory distress. HEART: Regular rate and rhythm.? NEURO: ?Alert and oriented x3. Patient screened in triage and initial orders placed.? ?Additional care and disposition to be based upon?diagnostic testing and treatment. <Brigid Weathers PA-C - Last Filed: 02/26/24 11:32> History of Present Illness HPI narrative: Patient 53-year-old female who presents emergency department chief complaint of right upper quadrant pain. The patient reports that she had a recent cholecystectomy and reports that she has been followed by general surgery and reports that she continues to have pain in the right upper quadrant. The patient reports he has had nausea vomiting today and is not able to keep anything down. <Shayne Gómez MD - Last Filed: 02/25/24 21:18> Related Data Home Medications: Home Medications ?Medication ?Instructions ?Recorded ?Confirmed ?Last Taken ?Type insulin lispro 100 unit/mL 1 unit subcut ONCE 02/10/19 02/19/24 Unknown History subcutaneous pen (Humalog KwikPen (U-100) Insulin) lisinopril 40 mg tablet 40 mg PO DAILY 02/10/19 02/19/24 Unknown History simvastatin 40 mg tablet 40 mg PO DAILY 09/29/22 02/19/24 Unknown History linaclotide 145 mcg capsule 145 mcg PO DAILY 01/19/24 02/19/24 Unknown History (Linzess) <Brigid Weathers PA-C - Last Filed: 02/26/24 11:32> Allergies/Adverse Reactions: Allergies Allergy/AdvReac Type Severity Reaction Status Date / Time amoxicillin Allergy Unknown Rash Verified 02/25/24 22:42 Penicillins Allergy Unknown Rash Verified 02/25/24 22:42 fish oil Allergy Rash Verified 02/25/24 22:42 hydrocodone AdvReac Intermediate Itching Verified 02/25/24 22:42 ketorolac (From Toradol) AdvReac Mild Itching Verified 02/25/24 22:42 <Brigid Weathers PA-C - Last Filed: 02/26/24 11:32> Review of Systems Review of Systems: A 10 system review of systems was completed on the patient and is negative except for what is stated in the HPI. Nursing and ancillary documentation was reviewed. <Shayne Gómez MD - Last Filed: 02/25/24 21:18> ON LICENSE OF [facility] Past Medical History Medical History: Medical History Congenital hypertrophy of kidney Dyslipidemia BMI 31.0-31.9,adult Diabetes Hypertension <Brigid Weathers PA-C - Last Filed: 02/26/24 11:32> Surgical History Surgical History: Surgical History Hx laparoscopic cholecystectomy Live Alvarado MD History of transmetatarsal amputation of left foot H/O: hysterectomy History of urostomy <Brigid Weathers PA-C - Last Filed: 02/26/24 11:32> Family History Family History: Family History Mother Diabetes mellitus Father Hypertension Sibling Cerebrovascular accident Other Family history of arthritis <Brigid Weathers PA-C - Last Filed: 02/26/24 11:32> Social History Social History: Social History Social History: Lives at home with and daughter. No pets. Smoking status: Never smoker Alcohol intake: current Drinks per week: 1 Alcohol use details: occasionally will have a drink socially. Substance use: never Do You Feel Safe in your Home?: Yes Lack of Transportation: No Lack of Food: Never True Current Housing: I Have Housing Concerned About Future Housing: No Difficulty Paying Gas/Electric Bills: No Difficulty Paying for Meds: No Currently Unemployed: No Education: Associate Degree Difficulty w/ Childcare or Family Care: No Gender identity (if verbalized by the patient): Female Spiritual care concerns: No <Brigid Weathers PA-C - Last Filed: 02/26/24 11:32> Exam Narrative: GENERAL: Well-appearing, well-nourished, and in no acute distress. HEAD: Normocephalic, atraumatic. EYES: PERRLA and EOMI. ENT: Nares clear, no rhinorrhea or epistaxis. Mucous membranes moist. NECK: Supple. CHEST: Clear to auscultation. No respiratory distress. HEART: Regular rate and rhythm. No murmur heard. Normal peripheral pulses. ABDOMEN: Soft, nontender, nondistended, normal active bowel sounds. EXTREMITIES: Normal range of motion. No edema. SKIN: Warm, dry, no rash. No rash present in the right upper quadrant NEURO: No focal deficits. Alert and oriented x3. PSYCH: Normal mood and affect. <Shayne Gómez MD - Last Filed: 02/25/24 21:18> Course Vital Signs Vital signs: Vital Signs Temperature 97.6 F 02/25/24 13:17 Pulse Rate 95 02/25/24 13:17 Respiratory Rate 16 02/25/24 13:17 Blood Pressure 131/86 02/25/24 13:17 Pulse Oximetry 100 02/25/24 13:17 Oxygen Delivery Room Air 02/25/24 13:17 Temperature 97.9 F 02/26/24 06:22 Pulse Rate 84 02/26/24 06:22 Respiratory Rate 11 L 02/26/24 06:22 Blood Pressure 100/66 02/26/24 06:22 Pulse Oximetry 100 02/26/24 06:22 Oxygen Delivery Room Air 02/26/24 04:33 Oxygen Flow Rate 2 02/25/24 22:55 <Brigid Weathesr PA-C - Last Filed: 02/26/24 11:32> Vital Signs Temperature 97.6 F 02/25/24 13:17 Pulse Rate 95 02/25/24 13:17 Respiratory Rate 16 02/25/24 13:17 Blood Pressure 131/86 02/25/24 13:17 Pulse Oximetry 100 02/25/24 13:17 Oxygen Delivery Room Air 02/25/24 13:17 Temperature 97.9 F 02/26/24 06:22 Pulse Rate 84 02/26/24 06:22 Respiratory Rate 11 L 02/26/24 06:22 Blood Pressure 100/66 02/26/24 06:22 Pulse Oximetry 100 02/26/24 06:22 Oxygen Delivery Room Air 02/26/24 04:33 Oxygen Flow Rate 2 02/25/24 22:55 <Shayne Gómez MD - Last Filed: 02/25/24 21:18> MDM - Abdominal Pain MDM Narrative Medical decision making narrative: Differential diagnosis includes gastritis, pancreatitis, intra-abdominal infection, ACS EKG showed no acute ischemic changes troponin was negative white blood cell count was slightly elevated at 15 electrolytes showed a BUN of 19 a glucose of 142 alk-phos wants 169 lipase was 88 Urinalysis was within normal limits CT scan of the abdomen pelvis showed 1. Right kidney hydronephrotic changes unchanged from previous examination. Possible multiple stones in the calyces versus early contrast excretion. 2. Left kidney stone. 3. Status post cholecystectomy. No definite collection seen. <Shayne Gómez MD - Last Filed: 02/25/24 21:18> Lab Data Result diagrams: 02/25/24 15:43 02/25/24 15:43 <Brigid Weathers PA-C - Last Filed: 02/26/24 11:32> Labs: Lab Results 02/25/24 02/25/24 02/26/24 Range/Units 15:43 15:54 04:30 WBC 15.1 H (4.5-10.0) K/mm3 RBC 4.19 L (4.2-5.4) M/mm3 Hgb 12.8 (12.0-15.0) g/dL Hct 37.1 (37.0-47.0) % MCV 88.5 (80-100) fl MCH 30.5 (26-34) pg MCHC 34.5 (32-36) g/dl RDW 13.1 (11.5-14.5) % Plt Count 268 (150-375) k/mm3 MPV 11.2 H (7.4-10.4) fl Immature Gran % (Auto) 0.4 (0-0.5) % Neut % (Auto) 84.5 H (45.5-73.1) % Lymph % (Auto) 11.5 L (18.3-44.2) % [place] % (Auto) 3.0 (2.6-8.5) % Eos % (Auto) 0.3 (0-4.4) % Baso % (Auto) 0.3 (0.2-1.2) % Lymph # (Auto) 1.74 (0.9-3.2) K/mm3 [place] # (Auto) 0.5 (0.1-0.6) K/mm3 Eos # (Auto) 0.0 (0-0.3) K/mm3 Baso # (Auto) 0.1 (0.0-0.1) K/mm3 Abs Immat Gran (auto) 0.06 H (0.00-0.031) K/mm3 Absolute Neuts (auto) 12.8 H (1.3-6.7) K/mm3 Absolute Nucleated RBC 0.000 (0.0-0.012) K/mm3 Nucleated RBC % 0.0 (0.0-0.2) % Sodium 141 (137-145) mmol/L Potassium 4.4 (3.4-5.0) mmol/L Chloride 105 (98-107) mmol/L Carbon Dioxide 25 (22-30) mmol/L Anion Gap 11 (4-12) mmol/L BUN 19 H (7-17) mg/dL Creatinine 0.80 (0.7-1.0) mg/dL Estim Creat Clear Calc 79 ml/min Estimated GFR > 60 (59 - ) Glucose 142 H (65-110) mg/dL POC Capillary Glucose 129 H (65-105) mg/dl Calcium 9.4 (8.4-10.2) mg/dL Total Bilirubin 0.8 (0.2-1.3) mg/dL AST 26 (14-36) U/L ALT 25 (6-35) U/L Alkaline Phosphatase 169 H (38-126) U/L Troponin I < 0.012 (0.000-0.034) ng/mL Total Protein 9.0 H (6.3-8.2) g/dL Albumin 4.5 (3.5-5.1) g/dL Lipase 88 (23-300) U/L Urine Color Yellow (Yellow) Urine Appearance Clear (Clear) Urine pH 6.0 (5.0-9.0) Ur Specific [place] 1.014 (1.001-1.035) Urine Protein 3+ H (Negative) mg/dL Urine Glucose (UA) Negative (Negative) mg/dL Urine Ketones Trace H (Negative) mg/dL Ur Blood (Man) Negative (Negative) Urine Nitrate Negative (Negative) Urine Bilirubin Negative (Negative) Urine Urobilinogen 0.2 (<2.0) mg/dL Leukocyte Esterase Rfl Negative (Negative) MARINA/UL Urine RBC 0-2 (0-2) /hpf Urine WBC 0-5 (0-3) /hpf Ur Squamous Epith Cells Occasional (Few) /hpf Urine Bacteria None seen /hpf Urine Casts 0-2 <Brigid Weathers PA-C - Last Filed: 02/26/24 11:32> Lab Results 02/25/24 02/25/24 02/26/24 Range/Units 15:43 15:54 04:30 WBC 15.1 H (4.5-10.0) K/mm3 RBC 4.19 L (4.2-5.4) M/mm3 Hgb 12.8 (12.0-15.0) g/dL Hct 37.1 (37.0-47.0) % MCV 88.5 (80-100) fl MCH 30.5 (26-34) pg MCHC 34.5 (32-36) g/dl RDW 13.1 (11.5-14.5) % Plt Count 268 (150-375) k/mm3 MPV 11.2 H (7.4-10.4) fl Immature Gran % (Auto) 0.4 (0-0.5) % Neut % (Auto) 84.5 H (45.5-73.1) % Lymph % (Auto) 11.5 L (18.3-44.2) % [place] % (Auto) 3.0 (2.6-8.5) % Eos % (Auto) 0.3 (0-4.4) % Baso % (Auto) 0.3 (0.2-1.2) % Lymph # (Auto) 1.74 (0.9-3.2) K/mm3 [place] # (Auto) 0.5 (0.1-0.6) K/mm3 Eos # (Auto) 0.0 (0-0.3) K/mm3 Baso # (Auto) 0.1 (0.0-0.1) K/mm3 Abs Immat Gran (auto) 0.06 H (0.00-0.031) K/mm3 Absolute Neuts (auto) 12.8 H (1.3-6.7) K/mm3 Absolute Nucleated RBC 0.000 (0.0-0.012) K/mm3 Nucleated RBC % 0.0 (0.0-0.2) % Sodium 141 (137-145) mmol/L Potassium 4.4 (3.4-5.0) mmol/L Chloride 105 (98-107) mmol/L Carbon Dioxide 25 (22-30) mmol/L Anion Gap 11 (4-12) mmol/L BUN 19 H (7-17) mg/dL Creatinine 0.80 (0.7-1.0) mg/dL Estim Creat Clear Calc 79 ml/min Estimated GFR > 60 (59 - ) Glucose 142 H (65-110) mg/dL POC Capillary Glucose 129 H (65-105) mg/dl Calcium 9.4 (8.4-10.2) mg/dL Total Bilirubin 0.8 (0.2-1.3) mg/dL AST 26 (14-36) U/L ALT 25 (6-35) U/L Alkaline Phosphatase 169 H (38-126) U/L Troponin I < 0.012 (0.000-0.034) ng/mL Total Protein 9.0 H (6.3-8.2) g/dL Albumin 4.5 (3.5-5.1) g/dL Lipase 88 (23-300) U/L Urine Color Yellow (Yellow) Urine Appearance Clear (Clear) Urine pH 6.0 (5.0-9.0) Ur Specific [place] 1.014 (1.001-1.035) Urine Protein 3+ H (Negative) mg/dL Urine Glucose (UA) Negative (Negative) mg/dL Urine Ketones Trace H (Negative) mg/dL Ur Blood (Man) Negative (Negative) Urine Nitrate Negative (Negative) Urine Bilirubin Negative (Negative) Urine Urobilinogen 0.2 (<2.0) mg/dL Leukocyte Esterase Rfl Negative (Negative) MARINA/UL Urine RBC 0-2 (0-2) /hpf Urine WBC 0-5 (0-3) /hpf Ur Squamous Epith Cells Occasional (Few) /hpf Urine Bacteria None seen /hpf Urine Casts 0-2 <Shayne Gómez MD - Last Filed: 02/25/24 21:18> Imaging Data Radiologist's impression: ITS Impressions Abdomen/Pelvis CT 02/25/24 16:35 IMPRESSION: 1. Right kidney hydronephrotic changes unchanged from previous examination. Possible multiple stones in the calyces versus early contrast excretion. 2. Left kidney stone. 3. Status post cholecystectomy. No definite collection seen. <Brigid Weathers PA-C - Last Filed: 02/26/24 11:32> ITS Impressions Abdomen/Pelvis CT 02/25/24 16:35 IMPRESSION: 1. Right kidney hydronephrotic changes unchanged from previous examination. Possible multiple stones in the calyces versus early contrast excretion. 2. Left kidney stone. 3. Status post cholecystectomy. No definite collection seen. <Shayne Gómez MD - Last Filed: 02/25/24 21:18> Critical Care Time Critical Care Time Critical Care Time: No <Brigid Weathers PA-C - Last Filed: 02/26/24 11:32> Discharge Plan Discharge Clinical Impression: Abdominal pain Qualifiers: Abdominal location: right upper quadrant Qualified Code(s): R10.11 - Right upper quadrant pain <Brigid Weathers PA-C - Last Filed: 02/26/24 11:32> Patient Disposition: Home, Self-Care <Brigid Weathers PA-C - Last Filed: 02/26/24 11:32> Condition: Stable <Brigid Weathers PA-C - Last Filed: 02/26/24 11:32> Instructions: Antibiotic Form, Abdominal Pain (ED) <Brigid Weathers PA-C - Last Filed: 02/26/24 11:32> Additional Instructions: Please follow-up with your primary care provider and your surgeon. If you continue to have symptoms you may need to be referred to gastroenterology for further testing. <Brigid Weathers PA-C - Last Filed: 02/26/24 11:32> Patient Language: Egyptian <Brigid Weathers PA-C - Last Filed: 02/26/24 11:32> Prescriptions: New ondansetron 4 mg tablet,disintegrating 4 mg PO Q8H PRN (Reason: nausea and vomiting) Qty: 10 0RF pantoprazole [Protonix] 40 mg tablet,delayed release (DR/EC) 40 mg PO HS 28 Days Qty: 28 0RF sucralfate [Carafate] 1 gram tablet 1 g PO Q6H PRN (Reason: abdominal discomfort) Qty: 40 0RF No Action simvastatin 40 mg tablet 40 mg PO DAILY Linzess 145 mcg capsule 145 mcg PO DAILY ondansetron 4 mg Tablet,Disintegrating 4 mg PO Q6H Qty: 20 0RF lisinopril 40 mg Tablet 40 mg PO DAILY insulin lispro [Humalog KwikPen Insulin] 100 unit/mL Insulin Pen 1 unit SUBCUT ONCE <Brigid Weathers PA-C - Last Filed: 02/26/24 11:32> Follow-up/Referrals: UNKNOWN,DOCTOR [Primary Care Provider] - <Brigid Weathers PA-C - Last Filed: 02/26/24 11:32>
[2024-02-25 15:54] LABS: Basophils Absolute Auto 0.1 K/mm3 (0.0-0.1); Basophils Percent Auto 0.3 % (0.2-1.2); Eosinophils Percent Auto 0.3 % (0-4.4); Hematocrit 37.1 % (37.0-47.0); Hemoglobin 12.8 g/dL (12.0-15.0); Immature Granulocyte Absolute 0.06 K/mm3 (0.00-0.031); Immature Granulocyte Percent A 0.4 % (0-0.5); Lymphocytes Absolute Auto 1.74 K/mm3 (0.9-3.2); Lymphocytes Percent Auto 11.5 % (18.3-44.2); Mean Corpuscular HGB Conc 34.5 g/dl (32-36); Mean Corpuscular Hemoglobin 30.5 pg (26-34); Mean Corpuscular Volume 88.5 fl (80-100); Mean Platelet Volume 11.2 fl (7.4-10.4); Monocytes Absolute Auto 0.5 K/mm3 (0.1-0.6); Neutrophils Absolute Auto 12.8 K/mm3 (1.3-6.7); Neutrophils Percent Auto 84.5 % (45.5-73.1); Platelet Count Result 268 k/mm3 (150-375); Red Blood Count 4.19 M/mm3 (4.2-5.4); Red Cell Distribution Width 13.1 % (11.5-14.5); White Blood Count 15.1 K/mm3 (4.5-10.0)
[2024-02-25 16:04] LABS: Alanine Aminotransferase 25 U/L (6-35); Albumin Level 4.5 g/dL (3.5-5.1); Alkaline Phosphatase 169 U/L (38-126); Anion Gap 11 mmol/L (4-12); Aspartate Amino Transferase 26 U/L (14-36); Bilirubin,Total 0.8 mg/dL (0.2-1.3); Blood Urea Nitrogen 19 mg/dL (7-17); Calcium 9.4 mg/dL (8.4-10.2); Carbon Dioxide 25 mmol/L (22-30); Chloride 105 mmol/L (98-107); Estimated CRCL calculation 79 ml/min; Estimated Glomerular Filt Rate > 60; Glucose 142 mg/dL (65-110); Lipase 88 U/L (23-300); Potassium 4.4 mmol/L (3.4-5.0); Sodium 141 mmol/L (137-145)
[2024-02-25 16:07] LABS: Add Urine Microscopic? YES; Appearance Urine Clear (Clear); Bacteria Urine None Seen /hpf; Bilirubin Urine Negative (Negative); Blood Urine Negative (Negative); Color Urine Yellow (Yellow); Glucose Urine UA Negative (Negative); Ketones Urine Trace mg/dL (Negative); Leukocyte Esterase Ur Negative LEU/UL (Negative); Nitrate Urine Negative (Negative); Non Pathogenic Casts 0-2; Protein Urine 3+ mg/dL (Negative); RBC Urine 0-2 /hpf (0-2); Specific Grav Ur 1.014 (1.001-1.035); Squamous Epithelial Cell Urine Occasional /hpf (Few); Urobilinogen Urine 0.2 mg/dL (<2.0); WBC Urine 0-5 /hpf (0-3)
--- NOTE | 2024-02-25 19:55 | ECG_ITS ---
Test Date: 2024-02-25 20:10:22 Measurements Intervals [place] Rate: 92 P: 57 WV: 166 QRS: 37 QRSD: 82 T: -6 QT: 343 QTc: 426 Interpretive Statements SINUS RHYTHM VOLTAGE CRITERIA FOR LVH NONSPECIFIC ST AND T-WAVE ABNORMALITY Compared to ECG 01/19/2024 02:53:40 NO SIGNIFICANT CHANGES Electronically Signed On 02-27-2024 17:17:30 DYNO TECHNICIAN by Rosaura Hammonds M.D.
[2024-02-25] MEDS: SODIUM CHLORIDE 0.9% IV 1,000 ML 999 ML IV CONT (20:09)
[2024-02-25] MEDS: ONDANSETRON INJ 4 MG/2 ML VIAL IV PUSH (20:12)
[2024-02-25] MEDS: MORPHINE SULFATE (*CRX) 4 MG/ML INJ IV PUSH (20:13)
[2024-02-25 20:27] LABS: Troponin I < 0.012 ng/mL (0.000-0.034)
[2024-02-25] MEDS: PANTOPRAZOLE SODIUM IV 40 MG VIAL IV PUSH (21:34)
[2024-02-25] MEDS: BELLADONNA ALK/PHENOB ELIX 10 ML, MAG HYDROX/ALUMINUM HYD/SIMETH 30 ML, LIDOCAINE 2% VI... PO (21:35)
[2024-02-25] MEDS: HYDROmorphone HCL INJ (*CRX) 1 MG/ML SYR IV PUSH ×2 (21:35→22:26)
[2024-02-25] MEDS: KETOROLAC 15 MG/ML VIAL (*BKC) IV PUSH (22:24)
[2024-02-25] MEDS: diphenhydrAMINE HCl INJ 50 MG/ML VIAL 25 MG IV PUSH (22:41)
[2024-02-26] VITALS (34 sets, daily range): BP systolic 93–116; BP diastolic 60–75; PULSE 83–91; RESP 10–16; TEMP 36.6; O2SAT 97–100
[2024-02-26 04:34] LABS: Glucose Point of Care 129 mg/dl (65-105)
--- OUTSIDE RECORDS SUMMARY | 2024-03-02 22:15 | XMS_ITS | Referral Summary ---
Author Organization [facility] Address [address] [facility] [address] [facility] [place] [address] Care Team Providers Care Job Spotter Name Role Phone Colton SILVEIAR MD, Abiodun Rushing Primary Care Provider Source Comments [facility],non-owned Affiliates and Associated Physician Practices is amultiple site organization consisting of ambulatory clinics and hospital sitesin [place], [place], [place] and [place]. This disclosure is being madepursuant to the Care Everywhere program and may not contain all information available regarding this patient. Last updated 17.[facility] Allergies Active Allergy Reactions Criticality Noted Date Comments Amoxicillin 03/11/2012 Penicillins 03/11/2012 Medications * Be aware that medications may not be up to date on this document. Alwaysverify current medications with the patient. Medication Sig Dispensed Refills Start Date End Date Status hydrocodone-acetaminop hen 5-500 MG tablet Take 1-2 Tabs by mouth 4 times daily as needed for Pain. 20 Tab 0 03/11/2012 Active ondansetron (ZOFRAN) 4 MG tablet Take 1 Tab by mouth every 4 hours as needed for Nausea/Vomiting. 10 Tab 0 03/11/2012 Active Social History Tobacco Use Types Packs/Day Years Used Date Smoking Tobacco: Never Alcohol Use Standard Drinks/Week Comments No 0 (1 standard drink = 0.6 oz pur e alcohol) PHQ-2 Answer Date Recorded Patient Health Questionnaire-2 Score 0 11/21/2023 Sex and Gender Information Value Date Recorded Sex Assigned at Not on file Gender Identity Not on file Sexual Orientation Not on file Last Filed Vital Signs Vital Sign Reading Time Taken Comments Blood Pressure 146/90 11/21/2023 10:21 AM CDT Pulse 76 11/21/2023 10:21 AM CDT Temperature 36.2 ??C (97.1 ??F) 11/21/2023 10:21 AM C DT Respiratory Rate 12 03/23/2016 4:52 AM HOOP COILER Oxygen Saturation 99% 11/21/2023 10:21 AM CDT Inhaled Oxygen Concentration - - Weight 90.4 kg (199 lb 6.4 oz) 11/21/2023 10:21 AM CDT Height 167.6 cm (5' 6 ) 11/21/2023 10:21 AM CDT Body Mass Index 32.18 11/21/2023 10:21 AM CDT Plan of Treatment Not on file Procedures Procedure Name Priority Date/Time Associated Diagnosis Comments COMPREHENSIVE METABOLIC PANEL Routine 11/21/2023 12:45 PM CDT Recurrent UTI from Last 3 Months or Most Recently Relevant to Health Maintenance Results * (ABNORMAL) COMPREHENSIVE METABOLIC PANEL (11/21/2023 12:45 PM CDT) BUN 15 7 - 26 mg/dL 11/21/2023 1:52 PM [facility] Creatinine 0.87 0.56 - 0.96 mg/dL 11/21/2023 1:52 PM [facility] Sodium 141 136 - 145 mmol/L 11/21/2023 1:52 PM [facility] Potassium 3.5 3.5 - 4.5 mmol/L 11/21/2023 1:52 PM [facility] Chloride 101 98 - 107 mmol/L 11/21/2023 1:52 PM [facility] CO2 29 22 - 29 mmol/L 11/21/2023 1:52 PM [facility] Glucose 210(H) 70 - 115 mg/dL 11/21/2023 1:52 PM [facility] Calcium 9.2 8.4 - 10.2 mg/dL 11/21/2023 1:52 PM [facility] Protein Total 8.6(H) 6.0 - 8.3 g/dL 11/21/2023 1:52 PM [facility] Albumin 3.4 3.4 - 5.0 g/dL 11/21/2023 1:52 PM [facility] Bilirubin Total 0.3 0.2 - 1.2 mg/dL 11/21/2023 1:52 PM [facility] Alkaline Phosphatase 149 40 - 150 U/L 11/21/2023 1:52 PM [facility] ALT 18 5 - 55 U/L 11/21/2023 1:52 PM [facility] AST 18 5 - 34 U/L 11/21/2023 1:52 PM [facility] Anion Gap 11 6 - 16 11/21/2023 1:52 PM [facility] BUN/Creatinine Ratio 17 7 - 23 11/21/2023 1:52 PM [facility] Osmolality Calculated 299(H) 275 - 295 mOsm/kg 11/21/2023 1:52 PM [facility] Albumin/Globulin Ratio 0.7(L) 1.1 - 2.3 11/21/2023 1:52 PM [facility] eGFR by CKD-EPI 80(L) >=90 mL/min/1.7 3 m2 11/21/2023 1:52 PM [facility] Blood BLOOD SPECIMEN / Unknown Lab Venipuncture / Unknown 11/21/2023 12:45 PM CDT 11/21/2023 1:21 PM CDT Felicia Olivera MD LAB - CHEMISTRY [facility] Organization Address City/State/ZIP Co de Phone Number [facility] [address] [place] [address], [place] [phone] from Last 3 Months or Most Recently Relevant to Health Maintenance Care Teams Job Spotter Relationship Specialty Start Date End Date Abiodun Segura II, MD [address] [place] [address] PCP - General Family Medicine 10/30/23
--- OUTSIDE RECORDS SUMMARY | 2024-03-02 22:15 | XMS_ITS | Clinical Summary ---
Author Organization [facility] Address [address] [place] [address] Care Team Providers Care Nuclear Medicine Supervisor Name Role Phone Colton SILVEIRA MD, Abiodun Rushing Primary Care Provider Source Comments [facility],non-owned Affiliates and Associated Physician Practices is amultiple site organization consisting of ambulatory clinics and hospital sitesin [place], [place] and [place]. This disclosure is being madepursuant to the Care Everywhere program and may not contain all information available regarding this patient. 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 Oxygen Saturation 99% 11/21/2023 10:21 AM CDT Inhaled Oxygen Concentration - - Weight 90.4 kg (199 lb 6.4 oz) 11/21/2023 10:21 AM CDT Height 167.6 cm (5' 6 ) 11/21/2023 10:21 AM CDT Body Mass Index 32.18 11/21/2023 10:21 AM CDT Plan of Treatment Health Maintenance Due Date Last Done Comments COLOGUARD (AGES 45-75) - COLON CA SCREENING 1971 COLON MONITORING 1971 COLONOSCOPY - COLON CA SCREENING 1971 CT COLONOGRAPHY - COLON CA SCREENING 1971 Colorectal Cancer Screening 1971 FIT - COLON CA SCREENING 1971 FLEX SIG - COLON CA SCREENING 1971 LIPID TESTING 1971 PAP SMEAR 1971 HIV SCREENING 1986 HEPATITIS C SCREENING 03/28/1989 DTAP/TDAP/TD VACCINES (1 - Tdap) 1990 HEPATITIS B VACCINE (1 of 3 - 19+ 3-dose series) 1990 PNEUMOCOCCAL VACCINE 50+ (1 of 2 - PCV) 1990 PNEUMOCOCCAL VACCINE (1 of 2 - PCV) 1990 ZOSTER VACCINE (1 of 2) 2021 MAMMOGRAM 07/03/2023 07/02/2021, 06/19, 03/15/2020, Additional history exists COVID-19 VACCINE ( - season) 2023 INFLUENZA VACCINE (#1) 2023 DEPRESSION SCREENING 02/20/2024 11/21/2023 MEDICARE AWV ? CALENDAR YEAR 2024 SCREENING FOR DIABETES 11/20/2026 , 03/23/2016, 03/22/2016, Additional history exists HIB VACCINE Aged Out No longer eligi ble based on patient's age to complete this topic HPV VACCINE Aged Out No longer eligi ble based on patient's age to complete this topic MENINGOCOCCAL (Group B) VACCINE Aged Out No longer eligible based on patient's age to complete this topic MENINGOCOCCAL VACCINE Aged Out No lauren greg eligible based on patient's age to complete this topic Procedures Procedure Name Priority Date/Time Associated Diagnosis Comments COMPREHENSIVE METABOLIC PANEL Routine 11/21/2023 12:45 PM CDT Recurrent UTI from Last 3 Months or Most Recently Relevant to Health Maintenance Results * (ABNORMAL) COMPREHENSIVE METABOLIC PANEL (11/21/2023 12:45 PM CDT) BUN 15 7 - 26 mg/dL 11/21/2023 1:52 PM [facility] Creatinine 0.87 0.56 - 0.96 mg/dL 11/21/2023 1:52 PM [facility] Sodium 141 136 - 145 mmol/L 11/21/2023 1:52 PM [facility] Potassium 3.5 3.5 - 4.5 mmol/L 11/21/2023 1:52 PM [facility] Chloride 101 98 - 107 mmol/L 11/21/2023 1:52 PM [facility] CO2 29 22 - 29 mmol/L 11/21/2023 1:52 PM [facility] Glucose 210(H) 70 - 115 mg/dL 11/21/2023 1:52 PM [facility] Calcium 9.2 8.4 - 10.2 mg/dL 11/21/2023 1:52 PM [facility] Protein Total 8.6(H) 6.0 - 8.3 g/dL 11/21/2023 1:52 PM [facility] Albumin 3.4 3.4 - 5.0 g/dL 11/21/2023 1:52 PM [facility] Bilirubin Total 0.3 0.2 - 1.2 mg/dL 11/21/2023 1:52 PM [facility] Alkaline Phosphatase 149 40 - 150 U/L 11/21/2023 1:52 PM [facility] ALT 18 5 - 55 U/L 11/21/2023 1:52 PM CDT [facility] AST 18 5 - 34 U/L 11/21/2023 1:52 PM CDT [facility] Anion Gap 11 6 - 16 11/21/2023 1:52 PM T [facility] BUN/Creatinine Ratio 17 7 - 23 11/21/2023 1:52 PM T [facility] Osmolality Calculated 299(H) 275 - 295 mOsm/kg 11/21/2023 1:52 PM T [facility] Albumin/Globulin Ratio 0.7(L) 1.1 - 2.3 11/21/2023 1:52 PM T [facility] eGFR by CKD-EPI 80(L) >=90 mL/min/1.7 3 m2 11/21/2023 1:52 PM T [facility] Blood BLOOD SPECIMEN / Unknown Lab Venipuncture / Unknown 11/21/2023 12:45 PM CDT 11/21/2023 1:21 PM CDT Felicia Olivera MD LAB - CHEMISTRY [facility]FR[facility] Organization Address City/State/ZIP Co de Phone Number [facility] [address] [place] [address], [facility] [phone] from Last 3 Months or Most Recently Relevant to Health Maintenance Care Teams Nuclear Medicine Supervisor Relationship Specialty Start Date End Date Abiodun Segura II, MD [address] [place], [place] [id number] PCP - General Family Medicine 10/30/23
--- OUTSIDE RECORDS SUMMARY | 2024-03-02 22:16 | XMS_ITS | Encounter Summary ---
Author Organization [facility] Address [address] [place] [address] Care Team Providers Care Armored Transport Service Manager Name Role Phone Jarred Rod MD Primary Care Provider Unav ailable Encounter Details Date Type Department Care Team (Late st Contact Info) Description 06/03/2013 Hospital Outpatient Visit [facility] [address] [place] [address] [place] [address] [facility] [address] [place] [address] Discharge Disposition: Home or Self Care Social History Tobacco Use Types Packs/Day Years Used Date Smoking Tobacco: Never Alcohol Use Standard Drinks/Week Comments No 0 (1 standard drink = 0.6 oz pur e alcohol) Sex and Gender Information Value Date Recorded Sex Assigned at Not on file Gender Identity Not on file Sexual Orientation Not on file documented as of this encounter Plan of Treatment Not on file documented as of this encounter Procedures Procedure Name Priority Date/Time Associated Diagnosis Comments GLUCOSE ACCUCHECK Routine 06/03/2013 8:5 9 AM CDT GLUCOSE ACCUCHECK Routine 06/03/2013 7:2 2 AM CDT documented in this encounter Results * (ABNORMAL) GLUCOSE ACCUCHECK (06/03/2013 8:59 AM CDT) Glucose, Fingerstick 232(H) 70-115mg/d L mg/dL [facility] (BEAKER) Comment:Neurology Technologist: LEIGHTON VIGIL SA 06/03/2013 8:59 AM CDT Falguni Shay MD LAB - CHEMISTRY [facility] ([facility]RISTIAN) * (ABNORMAL) GLUCOSE ACCUCHECK (06/03/2013 7:22 AM CDT) Glucose, Fingerstick 259(H) 70-115mg/d L mg/dL [facility] ([facility]) Comment: Physician Notified Neurology Technologist: ZO ??NUBIA 06/03/2013 7:22 AM CDT Falguni Shay MD LAB - CHEMISTRY EFR[facility]ANK Performing Organization Address City/[facility]/ZIP Co de Phone Number [facility] ([facility]ST[facility]) documented in this encounter Visit Diagnoses Not on filedocumented in this encounter Care Teams Armored Transport Service Manager Relationship Specialty Start Date End Date Jarred Rod MD PCP - General 03/11/12 10/29/23 documented as of this encounter
--- OUTSIDE RECORDS SUMMARY | 2024-03-02 22:16 | XMS_ITS | Encounter Summary ---
Author Organization [facility] Address [address] [place] [address] Care Team Providers Care Corporate Licensed Broker Name Role Phone Colton SILVEIRA MD, Abiodun Rushing Primary Care Provider Encounter Details Date Type Department Care Team (Late st Contact Info) Description 11/28/2023 Orders Only [facility] - Infectious Disease [address] [place] [address], [place] [id number] Felicia Olivera MD [address] [place] [address] Recurrent UTI Social History Tobacco Use Types Packs/Day Years [...] on file documented as of this encounter Visit Diagnoses Diagnosis Recurrent UTI- Primary Urinary tract infection, site not specified documented in this encounter Care Teams Corporate Licensed Broker Relationship Specialty Start Date End Date Abiodun Segura II, MD [address] [place] [address] PCP - General Family Medicine 10/30/23 documented as of this encounter
--- OUTSIDE RECORDS SUMMARY | 2024-03-02 22:16 | XMS_ITS | Encounter Summary ---
Author Organization [facility] Address [address] [facility] [place] [address] Care Team Providers Care Box Blank Machine Operator Helper Name Role Phone Jarred Rod MD Primary Care Provider Unav ailable Encounter Details Date Type Department Care Team (Latest Contact Info) Description 08/07/2014 11:46 AM CDT - 08/07/2014 11:59 PM CDT Hospital Encounter [facility] - Orthopedics [address] [place] [address] Oj Alanis, DO [address] [facility] [address] [place] [id number] Discharge Disposition: Home or Self Care Social History Tobacco Use Types Packs/Day Years Used Date Smoking Tobacco: Never Alcohol Use Standard Drinks/Week Comments No 0 (1 standard drink = 0.6 oz pur e alcohol) Sex and Gender Information Value Date Recorded Sex Assigned at Not on file Gender Identity Not on file Sexual Orientation Not on file documented as of this encounter Medications at Time of Discharge Medication Sig Dispensed Refills Start Date End Date hydrocodone-acetaminophen 5-500 MG tablet Take 1-2 Tabs by mouth 4 times daily as needed for Pain. 20 Tab 0 03/11/2012 ondansetron (ZOFRAN) 4 MG tablet Take 1 Tab by mouth every 4 hours as needed for Nausea/Vomiting. 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 Left heel spur. Narrative 08/07/2014 2:21 PM CDT Examination: Left foot minimum 3 views History: Left foot pain Findings: 3 weightbearing views of the left foot were performed without comparison. There is left pes planus. 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 Mid foot osteoarthritis is noted. Possible erosion or subchondral cyst is noted involving the lateral cuneiform and base of the third metatarsal shaft. Likely subchondral cysts are noted within the navicular and the cuneiforms. Mild great toe metatarsophalangeal joint osteoarthritis is noted. Hammertoe deformities are present. Small heel spur is noted. Procedure Note Nba Alejandro MD - 08/07/2014 Examination: Left foot minimum 3 views History: Left foot pain Findings: 3 weightbearing views of the left foot were performed without comparison. There is left pes planus. 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 Mid foot osteoarthritis is noted. Possible erosion or subchondral cyst is noted involving the lateral cuneiform and base of the third metatarsal shaft. Likely subchondral cysts are noted within the navicular and the cuneiforms. Mild great toe metatarsophalangeal joint osteoarthritis is noted. Hammertoe deformities are present. Small heel spur is noted. 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 Left heel spur. Live Peraza MD DIAGNOSTIC IMAGING O RDERABLES documented in this encounter Visit Diagnoses Diagnosis Pain in joint, ankle and foot, left documented in this encounter Care Teams Box Blank Machine Operator Helper Relationship Specialty Start Date End Date Jarred Rod MD PCP - General 03/11/12 10/29/23 documented as of this encounter
--- OUTSIDE RECORDS SUMMARY | 2024-03-02 22:16 | XMS_ITS | Encounter Summary ---
Author Organization [facility] Address [address] [facility] [place] [address] Care Team Providers Care Wirer Passenger Car Name Role Phone Jarred Rod MD Primary Care Provider Unav ailable Encounter Details Date Type Department Care Team (Latest Contact Info) Description 01/22/2015 1:01 PM PRINCIPLE INDUSTRIAL HYGIENIST - 01/22/2015 11:59 PM [facility] Hospital Encounter [facility] - Orthopedics [address] [place] [address] Oj Alanis, DO [address] [facility] [address] [place] [phone] Discharge Disposition: Home or Self Care Social [...] XR FOOT LEFT 3VW OR MORE Routine 01/22/2015 2:18 PM PRINCIPLE INDUSTRIAL HYGIENIST Left foot pain documented in this encounter Results * XR FOOT 3+ VW LEFT (01/22/2015 2:18 PM PRINCIPLE INDUSTRIAL HYGIENIST) Anatomical Region Laterality Modality Ankle / Foot Radiographic Shelli ging 01/22/2015 2:39 PM PRINCIPLE INDUSTRIAL HYGIENIST Impressions 01/22/2015 2:41 PM PRINCIPLE INDUSTRIAL HYGIENIST Left pes planus and midfoot osteoarthritis. Narrative 01/22/2015 2:41 PM PRINCIPLE INDUSTRIAL HYGIENIST Examination: Left foot minimum 3 views History: Left foot pain Findings: 3 views of the left foot were performed weightbearing with comparison made to 08/07/2014. There is left pes planus with unchanged mid foot osteoarthritis. Periarticular erosive changes are present which may represent multiple subchondral cysts. Additional considerations would include a developing neuropathic arthropathy although no fragmentation or debris is present. Small heel spur is noted. There is sclerosis of the navicular. Procedure Note Nba Alejandro MD - 01/22/2015 Examination: Left foot minimum 3 views History: Left foot pain Findings: 3 views of the left foot were performed weightbearing with comparison made to 08/07/2014. There is left pes planus with unchanged mid foot osteoarthritis. Periarticular erosive changes are present which may represent multiple subchondral cysts. Additional considerations would include a developing neuropathic arthropathy although no fragmentation or debris is present. Small heel spur is noted. There is sclerosis of the navicular. IMPRESSION Left pes planus and midfoot osteoarthritis. Oj Alanis DO DIAGNOSTIC IMAGING O RDERABLES documented in this encounter Visit Diagnoses Diagnosis Left foot pain Pain in limb documented in this encounter Care Teams Wirer Passenger Car Relationship Specialty Start Date End Date Jarred Rod MD PCP - General 03/11/12 10/29/23 documented as of this encounter
--- OUTSIDE RECORDS SUMMARY | 2024-03-02 22:16 | XMS_ITS | Encounter Summary ---
Author Organization [facility] Address [address] [place] [address] Care Team Providers Care Bilingual Medical Receptionist Name Role Phone Colton SILVEIRA MD, Abiodun Rushing Primary Care Provider Reason for Visit * Reason Onset Date Comments Patient Requested Call 11/23/2023 Encounter Details Date Type Department Care Team (Late st Contact Info) Description 11/23/2023 Telephone [facility] - Centralized Scheduling [address] [place] [address] Felicia Olivera MD [address] [place] [address] Patient Requested Call Social History Tobacco Use Types Packs/Day Years [...] on file documented as of this encounter Miscellaneous Notes * Telephone Encounter - Afshin Bishop - 11/23/2023 4:22 PM CDT Provider: Jarod Patient called to let office know what pharmacy she wanted her prescription sent to. It would be [facility] in [place]. documented in this encounter Plan of Treatment Not on file documented as of this encounter Visit Diagnoses Not on filedocumented in this encounter Care Teams Bilingual Medical Receptionist Relationship Specialty Start Date End Date Abiodun Segura II, MD [address] [place] [address] PCP - General Family Medicine 10/30/23 documented as of this encounter
--- OUTSIDE RECORDS SUMMARY | 2024-03-02 22:16 | XMS_ITS | Encounter Summary ---
Author Organization [facility] Address [address] [place] [address] Care Team Providers Care Foam Rubber Curer Name Role Phone Colton SILVEIRA MD, Abiodun Rushing Primary Care Provider Encounter Details Date Type Department Care Team (Late st Contact Info) Description 11/21/2023 10:00 AM CDT Office Visit [facility] - Infectious Disease [address] [place] [address], [place] [id number] Felicia Olivera MD [address] [place] [address] [phone] Recurrent UTI (Primary Dx); Type 2 diabetes mellitus with retinopathy of both eyes, with long-term current use of insulin, macular edema presence unspecified, unspecified retinopathy severity (HCC) Social History Tobacco Use Types Packs/Day Years [...] on file documented as of this encounter Last Filed Vital Signs Vital Sign Reading Time Taken Comments Blood Pressure 146/90 11/21/2023 10:21 AM CDT Pulse 76 11/21/2023 10:21 AM CDT Temperature 36.2 ??C (97.1 ??F) 11/21/2023 10:21 AM C DT Respiratory Rate - - Oxygen Saturation 99% 11/21/2023 10:21 AM CDT Inhaled Oxygen Concentration - - Weight 90.4 kg (199 lb 6.4 oz) 11/21/2023 10:21 AM CDT Height 167.6 cm (5' 6 ) 11/21/2023 10:21 AM CDT Body Mass Index 32.18 11/21/2023 10:21 AM CDT documented in this encounter Patient Instructions * Patient Instructions* Felicia Olivera MD - 11/21/2023 11:22 AM CDT Use chlorhexidine 4% solution as shower gel from waist down to knees 2-3 times a week for 1 month. Leave it on for 2-3 minutes then rinse off well. documented in this encounter Progress Notes * Felicia Olivera MD - 11/21/2023 10:00 AM CDT OUTPATIENT ID CLINIC CONSULT NOTE Reason for ID Referral: Recurrent UTIs HPI: 53 year old female presents to ID clinic for recurrent UTIs. She has a PMH significant for DM2, A1C 11.3 on 08/16/2023 and 9.1 on 02/03/23, on insulin with diabetic retinopathy with right blindness, CKD 3, HTN, left 2-3 toes amputated, obesity on semaglutide and insulin. Her UTI symptoms are frequency, burning with urination but no blood seen. Patient said that she had surgery done to fix the blockage of her right kidney when she was a teenager and the pain at the right flank went away after the surgery but then it eventually came back. 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 She has been having problems with UTI since she was a teenager but it was not bad and to a year agowhen she has been having UTIs almost every month. She has been on several antibiotics but oral antibiotic did not seem to work because symptoms did not resolve but IV antibiotic helped. She stated that fosfomycin did not work. Macrobid did not seem to work either. She also has been on Pyridium which she does not think it helps. She stated that she was admitted for a kidney infection in February at [facility] and then in April 2023 at [facility] ( [facility] where she was seen by ID) and was treated with IV antibiotics (meropenem) for 3 weeks at home through ?05/27/23 . No record found for the admission in April. Per record from Care Everywhere: 03/05/2023 she developed right flank pain, chills, fatigue, saw her PCP and was admitted from 03/05/2023-03/09/2023 at [facility] for UTI with known history of right kidney disease making her prone to pyelonephritis and ascending UTIs. She developed a rash and itching with ceftriaxone.She tolerated Zosyn and was discharged on linezolid and picked it up on 03/19/2023 when she saw her PCP for a hospital follow-up. She reports that nephrectomy was recommended by former surgeon. CT showed Multiple nonobstructing calculi bilaterally. Calcified granulomas of the spleen, stable. 03/19/2023 UCx grew >100 K CFU/mL Enterococcus species, sensitive to nitrofurantoin, vancomycin; intermediate to ampicillin. She also mentioned that she had an upper and lower endoscopy done during the hospitalization and recalled that she was having a lot of abdominal pain because of too much air in the gut and she was not able to pass gas at that time. No record found for the admission in March. She did see urology in the past. Last time she saw urologist was in April 2023 and had scope done. She was told that it was normal. She saw urology, Dr. Gera Lucero, on 04/24/2023. Per clinic note: CT 06/2019 at [facility]-renal stones, moderate right hydronephrosis 06/2020: Here with . Intermittent right flank pain, sometimes daily; worse with cough; sometimes positional. Activity unclear. Plan: Check CT done at [facility] in [place] in early 2020. Diuretic renal scan. Recurrent UTIs and suprapubic pain -06/2020: Occurs almost monthly past several months; SP discomfort, pressure sensation, Azo and antibiotics help. Plan: Hydration, Macrobid after intercourse. Consider cystoscopy and retrograde. Stress urinary incontinence -06/2020: Mild NOVA, no urge incontinence. No dysuria, hematuria, nocturia 0-1x. Plan: Follow conservatively for now. Of note, she did have a sling surgery done because her bladder dropped by another urologist around 2 years ago. 07/30/2023 Dr. Lucero prescribed Macrobid 100 mg p.o. twice daily for 14 days for UTI. 08/16/2023 PCP prescribed fosfomycin for acute cystitis 1 dose every other day for total of 3 doses.UA and urine culture were done. UCx was negative. She was last seen by her PCP on 10/29/2023 and note was reviewed. 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 She was referred to ID because of frequent UTIs. UA with micro and urine culture were done. She was treated with Macrobid twice daily for 2 weeks. She also was prescribed Pyridium which she does not think it helps. Note that urine culture came back positive for >100k of Enterococcusspecies sensitive to ampicillin, vancomycin, nitrofurantoin. Because of no ID specialist availability at [facility], she was referred to [facility]. She denies any fevers, chills, nausea, vomiting with any of her UTIs but stated that she has been having hot flashes for the past 2-3 months, which is new to her. She complains of dysuria and frequency today but no hematuria. She said that she has been trying toempty her bladder with every void. No air with urination. No fevers or chills. She stated that her back pain has been chronic but sometimes it gets worse and has been worse recently. She has been taking Tylenol for pain. She also takes ibuprofen as needed now after there teeth extraction but she does not take ibuprofen regularly for back pain. Appetites been okay. She does eat some fried food. Per microbiology from outside hospital, she has been growing Enterococcus species (sometime was identified as E faecalis) since February 2023. For her Diabetes, she was on Trulicity which was discontinued on 03/05/2023 secondary to gastritis secondary to delayed gastric emptying . She is still on insulin. Her PCP wanted to start semaglutide when Trulicity was D/C's but she was able to start it around a month ago. She think that she has lost some weight since she started it. She will follow-up with her PCP at the end of November and he will check A1c at that time and make some adjustment on semaglutide. She had a colonoscopy 2-3 years ago. She does not recall if she was told when her next follow-up colonoscopy is. She denies flu vaccine. She never received flu vaccine or COVID-19 vaccine and has no plan to get them. She stated that she drinks a lot of fluid every day but could not tell how much but she think that it could be up to 2 L a day. She stopped drinking soda. She does have allergy to penicillin, amoxicillin with a rash when she was around 17 years old and also ceftriaxone will be repeated during the last hospitalization and she developed a rash. PREVIOUS ATB USE PER CHART REVIEW: Macrobid x 14 days on 10/29/2023 Doxycycline 50 mg p.o. daily on 10/26/2023 x 30 (not on it now) Fosfomycin 3 g every other day x 3 doses on 08/16/2023 and 09/26/2023 Clindamycin 07/27/2023 Nitrofurantoin 100 mg p.o. twice daily x 7 days on 04/27/2023 Linezolid 5 days prescribed on 03/09/2023 (picked up on 03/19/2023) Zosyn (03/05-/03/09/23 during admission) Ciprofloxacin 500 mg p.o. 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 Hyperlipidemia, on simvastatin 40 mg daily. Per PCPs note, lipids are at goal. Nonobstructing bilateral nephrolithiasis per CT in February 2023 Hospitalization in 2016 for osteomyelitis of the toe and neck abscess, treated with IV ATB then PO doxyxycline. Not seen by ID. 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 Still F/U vascular surgery as stated that next visit they plan to do ultrasound to make sure that his circulation is patent in her leg. She take Linzess for the constipation. She stated that she does not take it on regular basis but maybe once a week. She said that if she does not have to bowel movement for several days, then she will take Linzess. She does have to strain with her bowel movement. Hypertension, on Norvasc with lisinopril. Gastric ulcer Decreased vision-blind in right eye, poor vision in the left eye History of intractable vomiting, abdominal pain. Atherosclerosis of [place] arteries of extremities with intermittent claudication both legs. Chronic low back pain which is getting worse over the last year and left hip pain which is also getting worse. Past Surgical History: Past Surgical History: Procedure Laterality Date Hysterectomy Hysterectomy in 2004 and no period after that. She is not on any hormone supplements. Recent 2 teeth extraction, left lower molar and premolar. She has been taking ibuprofen for pain asneeded. Left second and third toe amputation due to infection Eye surgery, right, retinal detachment Hysterectomy 2004, cervical surgery 2019 Bladder surgery, sling surgery, per patient, 2 years ago. 12/25/2022 EGD: Negative EGD. Nothing to explain abdominal pain. Abdominal pain could be related to her use of Trulicity. It was noted on H and P on 12/25/2022 that her last colonoscopy was less than 3 years. 11/20/2022 EGD: Gastric ulcer biopsies: Gastric mucosa with ulcer. H. pylori immunostain was negative. Patient was advised to take acid reflux medication daily 09/06/22 right toes biopsy and c/s. Social History: She lives at home with her . They have no pets. She drinks alcohol occasionally. Never smoked cigarettes. No illicit drug use. No marijuana use. She uses a cane and wheeled walker as needed. Immunization: She declined flu and COVID-19 vaccine. Family History: Diabetes, hypertension in mother. Heart attack and hypertension in father Stroke and hypertension in sister. Breast cancer in cousin at age 49. Current Medications: Current Outpatient Medications Medication Sig hydrocodone-acetaminophen 5-500 MG tablet Take 1-2 Tabs by mouth 4 times daily as needed for Pain. ondansetron (ZOFRAN) 4 MG tablet Take 1 Tab by mouth every 4 hours as needed for Nausea/Vomiting. No current facility-administered medications for this visit. Medication Allergies: Allergies Allergen Reactions Amoxicillin Penicillins Review of Systems: General: + some weight loss after starting semaglutide. No appetite change, fatigue, weakness, fever/chills. + Hot flashes. HEENT: Blind in the right eye and poor vision in left eye. No hearing loss, tinnitus, rhinorrhea, hoarseness, sore throat Cardiac: Denies chest pain, palpitations, dyspnea on exertion, edema Respiratory: Denies shortness of breath, wheezing, sputum, hemoptysis Gastrointestinal: Denies abdominal pain, nausea, vomiting, change in bowel habits, diarrhea, + constipation, using Linzess as needed Genitourinary: c/o dysuria and frequency but no hematuria Musculoskeletal: Denies muscle weakness, joint pain or stiffness, limited range of motion. + Chronic low back pain and right sided back pain Neurologic: Denies numbness or tingling in extremities, dizziness, lightheadedness, headache Hematologic: Denies easy bruising/bleeding Endocrine: Denies thyroid problems, diabetes Skin: Denies rashes, itching Psychiatric: Denies recent depression, anxiety Objective T 97.1 P 76 RR 18 BP 146/90 99% RA BW 90.4 kg. PHYSICAL EXAM General: A & O x3, NAD, appropriate mood HEENT: PERRLA, EOMI, moist mucus membranes, no icterus. No oral thrush. Extracted sites at the left lower molar and premolar healed well. Blind in the right eye. Poor vision in the left eye. TM are intact. Neck: No LAD, JVD; trachea midline Heart: RRR, normal S1, S2, no murmurs or gallops Lungs: CTAB, no wheezes, crackles, rhonchi. No use of accessory breathing muscles. GI: soft, +BS, non-tender, non-distended, no hepatosplenomegaly Musculoskeletal: full ROM at both UE and LE with 5/5 strength BACK: No CVA tenderness bilaterally. She has some tenderness on palpation of the muscles of the back especially on the lower back area. Neurologic: No focal deficits, CN 2-12 grossly intact Extremities: no clubbing, cyanosis, or edema. Skin: Warm and dry, no rashes or bruising noted. : deferred LN:No cervical, axillary, epitrochlear LAD Labs: CBC: Recent Labs Component Name 03/23/16 0240 03/22/16 0238 03/21/16 0243 WBC 8.8 8.2 7.9 RBC 3.31* 3.41* 3.27* HGB 10.2* 10.3* 10.0* HCT 28.6* 29.3* 28.3* MCV 86.4 85.9 86.5 BMP: Recent Labs Component Name 03/23/16 0240 03/22/16 0238 03/21/16 0243 03/17/16 0652 03/15/16 1809 NA 139 138 139 - 137 CL 107 105 107 - 101 CO2 23 25 19* - 23 BUN 12 11 12 - 17 CREATININE 0.7 0.7 0.9 - 0.9 ALB - - - - 3.3* PROT - - - - 8.6* - = values in this interval not displayed. CrCl cannot be calculated (Patient's most recent lab result is older than the maximum 15 days allowed.). LFTs: Recent Labs Component Name 03/22/16 0238 03/15/16 1809 ALKPHOS - 121 ALT - 25 AST - 29 LIPASE 22 - Coagulation: Recent Labs Component Name 03/15/16 1808 PT 12.9 INR 1.0 PTT 25.5 Imagin03/05/2023 CT abdomen pelvis with IV contrast only: 1. Chronic right hydronephrosis and renal cortical atrophy compatible with chronic obstructive uropathy, grossly stable. There is urothelial thickening proximally, pyelitis and urinary tract infection is a concern. No definite signs of pyelonephritis. Clinical correlation and follow-up recommended. 2. Multiple nonobstructing calculi bilaterally. 3. Small hiatal hernia. 4. Calcified granulomas of the spleen, stable. Stable 7 mm low-density lesion of the superior subcapsular splenic, likely incidental. 5. No free fluid or free air. Appendix normal. 6. Moderate atherosclerosis. 11/08/2022 CT abdomen pelvis with IV contrast only 1. No definite acute abnormality identified. 2. Unchanged appearance of the right kidney with marked calyceal dilatation. 3. Nonobstructive bilateral nephrolithiasis. 4. Hepatic steatosis. 5. Other chronic or nonurgent findings as described above. Pathology: None Microbiology: 10/26/2023 UCx grew >100k Enterococcus species, sensitive to ampicillin, vancomycin, Macrobid withMIC <=16 09/26/2023 UCx grew >100 K CFU/mL Enterococcus species, sensitive to nitrofurantoin, vancomycin; intermediate to ampicillin 08/16/2023 UCx-no growth 03/19/2023 UCx grew >100 K CFU/mL Enterococcus species, sensitive to nitrofurantoin, vancomycin; intermediate to ampicillin 03/05/2023 UCx-no growth 03/05/2023 UCx grew 10k-49K CFU/mL Enterococcus species 10/12/2021 UCx-no growth 10/11/2022 UCx-polymicrobial growth consistent with normal genital ketty 09/06/2022 UCx-no growth 03/17/2016 UCx grew <100 CFU/mL 03/17/2016 abscess of the neck grew light growth of coagulase-negative Staphylococcus. Assessment and Plan: Recurrent UTIs. 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 She has multiple factors to put her at risk for recurrent UTIs including poorly controlled diabetes, bilateral kidney stones. I explained to her that it is very difficult to clear the bacterial colonization but we should try to prevent it from over growing which could lead to UTIs. 2. Poorly controlled diabetes, A1c 11.3 in July 2023, on semaglutide and insulin. Diabetes retinopathy with right blindness, poor vision left eye. Charcot arthropathy of the left foot with history of amputation of the left toes. 3. Nonobstructing bilateral nephrolithiasis. 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 History of bladder sling, per patient 2 years ago 4. CKD 3, stable, per PCP. 5. Penicillin, amoxicillin, ceftriaxone allergy with a rash. In February 2023, at [facility], she tolerated Zosyn but had a rash with ceftriaxone. PLAN: -UA with micro reflex urine culture. -CBC and and CMP -Patient was advised to empty bladder after each void -Patient was advised to take Linzess on a regular basis to prevent constipation. -She was advised to continue to work with her PCP for a better control of her diabetes. -Patient was advised to chlorhexidine 4% solution as shower gel from waist down to knees 2-3 times a week for 1 month. Leave it on for 2-3 minutes then rinse off well. Hope this will help with decreasing the number of bacteria in the perineum. -I will contact the patient after urine culture results is available. If it grows E faecalis again,we will ask for either tetracycline or doxycycline susceptibility. -Follow-up with urology, vascular surgery, PCP. -May consider trial of methenamine (prescription) later to sterilize urine as much as possible if renal function allows. I spent 60 minutes in the care of this patient, and over 50% of that time was spent in counseling and coordination of care. Pt was seen on 11/21/2023. Questions were answered to the patient. Felicia Olivera MD Infectious Diseases attending documented in this encounter Plan of Treatment Not on file documented as of this encounter Procedures Procedure Name Priority Date/Time Associated Diagnosis Comments URINALYSIS W/MICROSCOPIC REFLEX TO CULTURE Routine 11/21/2023 12:45 PM CDT Recurrent UTI CULTURE URINE Routine 11/21/2023 12:45 PM CDT Recurrent UTI CBC W AUTO DIFFERENTIAL Routine 11/21/2023 12:45 PM CDT Recurrent UTI COMPREHENSIVE METABOLIC PANEL Routine 11/21/2023 12:45 PM CDT Recurrent UTI documented in this encounter Results * (ABNORMAL) CULTURE URINE (11/21/2023 12:45 PM CDT) Culture Urine >100,000 CFU/mL Enterococcus faecalis(A) JESSI 11/23/2023 11:19 AM CDT [facility] Urine MID-STREAM URINE SPECIMEN / Unknown Collection / Unknown 11/21/2023 12:45 PM CDT 11/21/2023 1:38 PM CDT Narrative Organism Antibiotic Method Susceptibility Enterococcus faecalis Ampicillin JESSI <=2 ug/mL: Susceptible Enterococcus faecalis Doxycycline JESSI >=16 ug/mL: Resistant Comment:This is an a ppended report. These results have been appended to a previously final verified report. Enterococcus faecalis Nitrofurantoin JESSI <=16 ug/mL: Susceptible Enterococcus faecalis Tetracycline JESSI >=16 ug/mL: Resistant Comment:This is an a ppended report. These results have been appended to a previously final verified report. Enterococcus faecalis Vancomycin JESSI 1 ug/mL: Susceptible Felicia Olivera MD LAB - MICROBIOLOGY O RDERABLES [facility] [address] [place] [address], [facility] [phone] * (ABNORMAL) CBC WITH DIFFERENTIAL (11/21/2023 12:45 PM CDT) WBC 9.7 4.0 - 10.7 x10E9/L 11/21/2023 1:27 PM [facility] RBC Count 4.35 3.90 - 5.20 x10E12/L 11/21/2023 1:27 PM [facility] Hemoglobin 12.9 11.9 - 15.8 g/dL 11/21/2023 1:27 PM [facility] Hematocrit 38.4 34.8 - 46.1 % 11/21/2023 1:27 PM [facility] MCV 88.3 80.0 - 98.0 fL 11/21/2023 1:27 PM [facility] MCH 29.7 26.7 - 33.6 pg 11/21/2023 1:27 PM [facility] MCHC 33.6 31.7 - 36.3 g/dL 11/21/2023 1:27 PM [facility] RDW-CV 12.9 11.3 - 14.8 % 11/21/2023 1:27 PM [facility] Platelet Count 278 150 - 420 x10E9/L 11/21/2023 1:27 PM [facility] MPV 11.6(H) 7.8 - 11.4 fL 11/21/2023 1:27 PM [facility] Neutrophil % 62.9 41.0 - 74.0 % 11/21/2023 1:27 PM [facility] Lymphocyte % 31.1 17.0 - 47.0 % 11/21/2023 1:27 PM [facility] Monocyte % 4.2 3.0 - 11.0 % 11/21/2023 1:27 PM CDT [facility] Eosinophil % 1.1 0.0 - 7.0 % 11/21/2023 1:27 PM T [facility] Basophil % 0.5 0.0 - 1.6 % 11/21/2023 1:27 PM T [facility] Immature Granulocytes % 0.2 0.0 - 1.0 % 11/21/2023 1:27 PM T [facility] Neutrophil Absolute 6.12 1.60 - 7.50 x10E9/L 11/21/2023 1:27 PM T [facility] Lymphocyte Absolute 3.03 1.00 - 4.40 x10E9/L 11/21/2023 1:27 PM [facility] Monocyte Absolute 0.41 0.15 - 1.00 x10E9/L 11/21/2023 1:27 PM [facility] Eosinophil Absolute 0.11 0.00 - 0.60 x10E9/L 11/21/2023 1:27 PM [facility] Basophil Absolute 0.05 0.00 - 0.13 x10E9/L 11/21/2023 1:27 PM [facility] Blood BLOOD SPECIMEN / Unknown Lab Venipuncture / Unknown 11/21/2023 12:45 PM CDT 11/21/2023 1:21 PM CDT Felicia Olivera MD LAB - HEMATOLOGY ORD ERABLES Performing Organization Address City/State/[facility] Co de Phone Number [facility] [address] [place] [address], [facility] [phone] * (ABNORMAL) COMPREHENSIVE METABOLIC PANEL (11/21/2023 12:45 PM CDT) BUN 15 7 - 26 mg/dL 11/21/2023 1:52 PM T [facility] Creatinine 0.87 0.56 - 0.96 mg/dL 11/21/2023 1:52 PM T [facility] Sodium 141 136 - 145 mmol/L 11/21/2023 1:52 PM T [facility] Potassium 3.5 3.5 - 4.5 mmol/L 11/21/2023 1:52 PM [facility] Chloride 101 98 - 107 mmol/L 11/21/2023 1:52 PM [facility] CO2 29 22 - 29 mmol/L 11/21/2023 1:52 PM [facility] Glucose 210(H) 70 - 115 mg/dL 11/21/2023 1:52 PM [facility] Calcium 9.2 8.4 - 10.2 mg/dL 11/21/2023 1:52 PM [facility] Protein Total 8.6(H) 6.0 - 8.3 g/dL 11/21/2023 1:52 PM [facility] Albumin 3.4 3.4 - 5.0 g/dL 11/21/2023 1:52 PM [facility] Bilirubin Total 0.3 0.2 - 1.2 mg/dL 11/21/2023 1:52 PM [facility] Alkaline Phosphatase 149 40 - 150 U/L 11/21/2023 1:52 PM [facility] ALT 18 5 - 55 U/L 11/21/2023 1:52 PM [facility] AST 18 5 - 34 U/L 11/21/2023 1:52 PM [facility] Anion Gap 11 6 - 16 11/21/2023 1:52 PM [facility] BUN/Creatinine Ratio 17 7 - 23 11/21/2023 1:52 PM [facility] Osmolality Calculated 299(H) 275 - 295 mOsm/kg 11/21/2023 1:52 PM [facility] Albumin/Globulin Ratio 0.7(L) 1.1 - 2.3 11/21/2023 1:52 PM [facility] eGFR by CKD-EPI 80(L) >=90 mL/min/1.7 3 m2 11/21/2023 1:52 PM [facility] Blood BLOOD SPECIMEN / Unknown Lab Venipuncture / Unknown 11/21/2023 12:45 PM CDT 11/21/2023 1:21 PM [facility] Felicia Olivera MD LAB - CHEMISTRY ORDE RABLES [facility] [address] [place] [address], [facility] [phone] * (ABNORMAL) URINALYSIS W/MICROSCOPIC REFLEX TO CULTURE (11/21/2023 12:45 PM CDT) Color UA Yellow Straw, Yellow 11/21/2023 1:38 PM [facility] Clarity UA Cloudy(A) Clear 11/21/2023 1:38 PM [facility] Specific Weir UA 1.014 1.005 - 1.030 11/21/2023 1:38 PM [facility] pH UA 5.0 5.0 - 8.0 pH 11/21/2023 1:38 PM [facility] Protein UA 2+(A) Negative 11/21/2023 1:38 PM [facility] Glucose UA 1+(A) Negative 11/21/2023 1:38 PM [facility] Ketone UA Negative Negative 11/21/2023 1:38 PM [facility] Bilirubin UA Negative Negative 11/21/2023 1:38 PM [facility] Blood UA Negative Negative 11/21/2023 1:38 PM [facility] Nitrite UA Negative Negative 11/21/2023 1:38 PM [facility] [facility] Leukocyte Esterase 3+(A) Negative 11/21/2023 1:38 PM [facility] Urobilinogen UA Negative Negative mg/dL 11/21/2023 1:38 PM [facility] RBC UA 6-10(A) None Seen, 0-2, 3-5 /HPF 11/21/2023 1:38 PM [facility] WBC UA >100(A) None Seen, 0-5 /HPF 11/21/2023 1:38 PM [facility] WBC Clumps Occasional( A) None /HPF 11/21/2023 1:38 PM [facility] Bacteria UA 1+(A) None /HPF 11/21/2023 1:38 PM [facility] Squamous Epithelial Cells UA 3-5 None Seen, 0-2, 3-5 /HPF 11/21/2023 1:38 PM CDT [facility] Mucus UA 1+ /LPF 11/21/2023 1:38 PM CDT [facility] Urine MID-STREAM URINE SPECIMEN / Unknown Collection / Unknown 11/21/2023 12:45 PM CDT 11/21/2023 1:12 PM CDT Narrative [facility] - 11/21/2023 1:38 PM CDT Lab Status, Culture Reflex Indicated. Felicia Olivera MD LAB - URINALYSIS ORD ERABLES [facility] [address] [place] [address], [facility] [phone] documented in this encounter Visit Diagnoses Diagnosis Recurrent UTI- Primary Urinary tract infection, site not specified Type 2 diabetes mellitus with retinopathy of both eyes, with long-term current use of insulin, macular edema presence unspecified, unspecified retinopathy severity (HCC) documented in this encounter Care Teams Foam Rubber Curer Relationship Specialty Start Date End Date Abiodun Segura II, MD [address] [place] [address] PCP - General Family Medicine 10/30/23 documented as of this encounter
--- OUTSIDE RECORDS SUMMARY | 2024-03-02 22:16 | XMS_ITS | Encounter Summary ---
Author Organization [facility] Address [address] [place] [address] Care Team Providers Care Pyrotechnist Name Role Phone Colton SILVEIRA MD, Abiodun Rushing Primary Care Provider Reason for Visit * Reason Onset Date Comments Reschedule Appointment 11/05/2023 Left vm f or patient to call back and reschedule appointment with Dr. Olivera. Encounter Details Date Type Department Care Team (Late st Contact Info) Description 11/05/2023 Telephone [facility] - Centralized Scheduling [facility] [place] [address] Sharyn Walker Reschedule Appointment (Left vm for patient to call back and reschedule appointment with Dr. Olivera.) Social History Tobacco Use Types Packs/Day Years Used Date Smoking Tobacco: Never Alcohol Use Standard Drinks/Week Comments No 0 (1 standard drink = 0.6 oz pur e alcohol) Sex and Gender Information Value Date Recorded Sex Assigned at Not on file Gender Identity Not on file Sexual Orientation Not on file documented as of this encounter Miscellaneous Notes * Telephone Encounter - Sharyn Walker - 11/05/2023 10:58 AM CDT Left vm for patient to call back and reschedule appointment with Dr. Olivera. documented in this encounter Plan of Treatment Not on file documented as of this encounter Visit Diagnoses Not on filedocumented in this encounter Care Teams Pyrotechnist Relationship Specialty Start Date End Date Abiodun Segura II, MD [address] [place] [id number] PCP - General Family Medicine 10/30/23 documented as of this encounter
--- OUTSIDE RECORDS SUMMARY | 2024-03-02 22:16 | XMS_ITS | Encounter Summary ---
Author Organization [facility] Address [address] [facility] [place] [address] Care Team Providers Care Geodetic Surveyor Technologist Name Role Phone Colton SILVEIRA MD, Abiodun Rushing Primary Care Provider Reason for Visit * Reason Onset Date Comments Results 11/27/2023 Encounter Details Date Type Department Care Team (Late st Contact Info) Description 11/27/2023 Telephone [facility] - Infectious Disease [address] [place] [address], [facility] [place] [address] Felicia Olivera MD [facility] [place] [address] Results Social History Tobacco Use Types Packs/Day Years [...] encounter Miscellaneous Notes * Telephone Encounter - Jai Nova - 11/27/2023 8:59 AM CDT Current Provider: Dr. Duarte Reason for Call: Mrs. Lena Mcneal would like her medicines sent to [facility], [address] [facility]. [place], [place] [phone]. Additionally, she would like for you to give her a call to review what infections she had. Patient Call Back Number: [phone] 2:55 PM Spoke with the patient, she stated that she still has back pain and dysuria. No F/C. She said that pain seems to be worse than when I saw her on 11/20. She wanted to go to ED, I agreed. I told her the name of the bacteria E faecalis and sensitivities. She wrote them down. She will go to ED at [facility]. If she does not get admitted, I will send her a prescription to [facility]. She state that Macrobid did not work. I will prescribe linezolid for 7 days. Pranay notify me later after ED visit. Felicia Olivera MD documented in this encounter Plan of Treatment Not on file documented as of this encounter Visit Diagnoses Not on filedocumented in this encounter Care Teams Geodetic Surveyor Technologist Relationship Specialty Start Date End Date Abiodun Segura II, MD [address] [place] [address] PCP - General Family Medicine 10/30/23 documented as of this encounter
--- OUTSIDE RECORDS SUMMARY | 2024-03-02 22:16 | XMS_ITS | Encounter Summary ---
Author Organization [facility] Address [address] [place] [address] Care Team Providers Care Engineering Production Worker Name Role Phone Colton SILVEIRA MD, Abiodun Rushing Primary Care Provider Encounter Details Date Type Department Care Team (Latest Contact Info) Description 11/21/2023 Travel Social History Tobacco Use Types Packs/Day Years [...] on filedocumented in this encounter Care Teams Engineering Production Worker Relationship Specialty Start Date End Date Abiodun Segura II, MD [address] [place] [id number] PCP - General Family Medicine 10/30/23 documented as of this encounter
--- OUTSIDE RECORDS SUMMARY | 2024-03-02 22:16 | XMS_ITS | Encounter Summary ---
Author Organization [facility] Address [address] [facility] [place] [address] Care Team Providers Care Collar Stitcher Name Role Phone Colton SILVEIRA MD, Abiodun Rushing Primary Care Provider Encounter Details Date Type Department Care Team (Latest Contact Info) Description 11/21/2023 11:31 AM CDT - 11/21/2023 11:59 PM T Hospital Encounter [facility] [address] [place] [address] Felicia Olivera MD [address] [place] [address] Discharge Disposition: Home or Self Care Social [...] on filedocumented in this encounter Care Teams Collar Stitcher Relationship Specialty Start Date End Date Abiodun Segura II, MD [address] [place] [address] PCP - General Family Medicine 10/30/23 documented as of this encounter
--- OUTSIDE RECORDS SUMMARY | 2024-03-02 22:16 | XMS_ITS | Encounter Summary ---
Author Organization [facility] Address [address] [facility] [address] [place] [address] Care Team Providers Care Assembler Motor Vehicle Name Role Phone Jarred Rod MD Primary Care Provider Unav ailable Reason for Visit * Reason Comments Vomiting Pt c/o n/v several t imes per day x 5 days, generalized abd pain, onset of diarrhea today. afebrile. Encounter Details Date Type Department Care Team (Late st Contact Info) Description 03/11/2012 8:17 AM AUTOMATION MANAGER - 03/11/2012 2:04 PM AUTOMATION MANAGER Emergency ER at [address] [address] Ashley Montoya MD [address] [place] [address] Hydronephrosis; Nausea And Vomiting; Flank pain Discharge Disposition: Home or Self Care Social [...] Sign Reading Time Taken Comments Blood Pressure 125/73 03/11/2012 1:30 PM AUTOMATION MANAGER Pulse 85 03/11/2012 1:30 PM AUTOMATION MANAGER Temperature 36.7 ??C (98.1 ??F) 03/11/2012 8:21 AM CS T Respiratory Rate 18 03/11/2012 8:21 AM AUTOMATION MANAGER Oxygen Saturation 99% 03/11/2012 1:30 PM AUTOMATION MANAGER Inhaled Oxygen Concentration - - Weight 84.4 kg (186 lb) 03/11/2012 8:21 AM AUTOMATION MANAGER Height 167.6 cm (5' 6 ) 03/11/2012 8:21 AM AUTOMATION MANAGER Body Mass Index 30.02 03/11/2012 8:21 AM AUTOMATION MANAGER documented in this encounter Discharge Instructions * Discharge Instructions* Ashley Montoya MD - 03/11/2012 1:49 PM AUTOMATION MANAGER Hydronephrosis Hydronephrosis is an abnormal enlargement of your kidney. It can affect one or both the kidneys. Itresults from the backward pressure of urine on the kidneys, when the flow of urine is blocked. Normally, the urine drains from the kidney through the urine tube (ureter), into a sac which holds the urine until urination (bladder). When the urinary flow is blocked, the urine collects above the block. This causes an increase in the pressure inside the kidney, which in turn leads to its enlargement.The block can occur at the point where the kidney joins the ureter. Treatment depends on the cause and location of the block. CAUSES The causes of this condition include: ?? defect of the kidney or ureter. ?? Kink at the point where the kidney joins the ureter. ?? Stones and blood clots in the kidney or ureter. ?? Cancer, injury, or infection of the ureter. ?? Scar tissue formation. ?? Backflow of urine (reflux). ?? Cancer of bladder or prostate gland. ?? Abnormality of the nerves or muscles of the kidney or ureter. ?? Lower part of the ureter protruding into the bladder (ureterocele). ?? Abnormal contractions of the bladder. ?? Both the kidneys can be affected during . This is because the enlarging uterus presses on the ureters and blocks the flow of urine. SYMPTOMS The symptoms depend on the location of the block. They also depend on how long the block has been present. You may feel pain on the affected side. Sometimes, you may not have any symptoms. There may be a dull ache or discomfort in the flank. The common symptoms are: ?? Flank pain. ?? Swelling of the abdomen. ?? Pain in the abdomen. ?? Nausea and vomiting. ?? Fever. ?? Pain while passing urine. ?? Urgency for urination. ?? Frequent or urgent urination. ?? Infection of the urinary tract. DIAGNOSIS Your caregiver will examine you after asking about your symptoms. You may be asked to do blood and urine tests. Your caregiver may order a special X-ray, ultrasound, or CT scan. Sometimes a rigid or flexible telescope (cystoscope) is used to view the site of the blockage. TREATMENT Treatment depends on the site, cause, and duration of the block. The goal of treatment is to removethe blockage. Your caregiver will plan the treatment based on your condition. The different types of treatment are: ?? Putting in a soft plastic tube (ureteral stent) to connect the bladder with the kidney. This will help in draining the urine. ?? Putting in a soft tube (nephrostomy tube). This is placed through skin into the kidney. The trapped urine is drained out through the back. A plastic bag is attached to your skin to hold the urine that has drained out. ?? Antibiotics to treat or prevent infection. ?? Breaking down of the stone (lithotripsy). HOME CARE INSTRUCTIONS ?? It may take some time for the hydronephrosis to go away (resolve). Drink fluids as directed by your caregiver , and get a lot of rest. ?? If you have a drain in, your caregiver will give you directions about how to care for it. Be sure you understand these directions completely before you go home. ?? Take any antibiotics, pain medications, or other prescriptions exactly as prescribed. ?? Follow-up with your caregivers as directed. SEEK MEDICAL CARE IF: ?? You continue to have flank pain, nausea, or difficulty with urination. ?? You have any problem with any type of drainage device. ?? Your urine becomes cloudy or bloody. SEEK IMMEDIATE MEDICAL CARE IF: ?? You have severe flank and/or abdominal pain. ?? You develop vomiting and are unable to hold down fluids. ?? You develop a fever above 100.5?? F (38.1?? C), or as per your caregiver. MAKE SURE YOU: ?? Understand these instructions. ?? Will watch your condition. ?? Will get help right away if you are not doing well or get worse. Document Released: 12/03/2007 Document Revised: 10/18/2011 Document Reviewed: 01/19/2011 ExitCare?? Patient Information ??2011 [employer]. MATION MANAGER * Discharge Instructions* Document, Scanned - 03/17/2012 5:16 PM AUTOMATION MANAGER MATION MANAGER documented in this encounter Medications at Time of Discharge Medication Sig Dispensed Refills Start Date End Date hydrocodone-acetaminophen 5-500 MG tablet Take 1-2 Tabs by mouth 4 times daily as needed for Pain. 20 Tab 0 03/11/2012 ondansetron (ZOFRAN) 4 MG tablet Take 1 Tab by mouth every 4 hours as needed for Nausea/Vomiting. 10 Tab 0 03/11/2012 documented as of this encounter Procedure Notes * Document, Scanned - 03/20/2012 9:37 AM CSTAssociated Order(s): CARDIAC EKG ORDER MATION MANAGER * Document, Scanned - 03/12/2012 11:07 AM CSTAssociated Order(s): EKG 12-LEAD MATION MANAGER * Document, Scanned - 03/12/2012 7:34 AM CSTAssociated Order(s): EKG 12-LEAD MATION MANAGER documented in this encounter ED Notes * Nallely Lyons RN - 03/11/2012 1:55 PM CST Pt discharge instructions given. Pt verbalizes understanding and has no further questions or concerns. Pt ambulatory and escorted with all belongings to the ED waiting room. MATION MANAGER * Nallely Lyons RN - 03/11/2012 1:[address] Montoya at bedside. AN * Nallely Lyons RN - 03/11/2012 12:05 PM CST Report received from Biju CARRERA. Pt resting on stretcher in NAD, VSS. Call light in reach and familyat bedside. Will continue to monitor. AN * Biju Acevedo RN - 03/11/2012 12:02 PM CST Report given to DEANDRE Brownign Biju Kapadia RN - 03/11/2012 11:52 AM CST Pt back from CT. Placed on monitor. AN * Biju Acevedo RN - 03/11/2012 11:30 AM CST Pt to CT at this time Biju Kapadia RN - 03/11/2012 10:19 AM CST Pt back from Ultrasound. Pt states her pain is a little better. Pt ambulated to restroom with steady gait. Urine sample obtained at that time. Pt placed back in bed. Call light within reach. Will continue to monitor Biju Kapadia RN - 03/11/2012 9:57 AM CST Pt to US Biju Kapadia RN - 03/11/2012 8:51 AM CST Pt ambulatory to restroom with steady gait. Pt unable to give urine sample. Will continue to monitor MATION MANAGER * Ashley Montoya MD - 03/11/2012 8:35 AM CST Provider contact with the patient: 03/11/2012 08:35 Lena Alfaro [id number] [facility] History Chief Complaint Patient presents with ??? Vomiting Pt c/o n/v several times per day x 5 days, generalized abd pain, onset of diarrhea today. afebrile. HPI Comments: Chief complaint narrative was entered by triage nurse, not by physician. Vomiting The history is provided by the patient. The current episode started more than 2 days ago (5 days). The problem has not changed since onset.There has been no fever. Associated symptoms include abdominal pain and diarrhea.Pertinent negatives include no chills, no fever, no headaches or no cough. 8:35 AM Lena Alfaro, a 41 y.o. 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 Pt reports that she was admitted to the hospital about a week ago for kidney infection and when she d/c she started experience n/v. Pt reports that she was seen in a ED a few days ago and was dx with flu. For past 5 days she has had RUQ pain that radiates to her R flank. No dysuria. No fevers. + diarrheatoday. No other complaints or modifying factors at this time. Past Medical History Diagnosis Date ??? Diabetes mellitus ??? HTN (hypertension) Past Surgical History Procedure Date ??? Hysterectomy FMH: Negative History Social History ??? Marital Status: Single Spouse Name: N/A Number of Children: N/A ??? Years of Education: N/A Occupational History ??? Not on file. Social History Main Topics ??? Smoking status: Never Smoker ??? Smokeless tobacco: Not on file ??? Alcohol Use: No ??? Drug Use: No ??? Sexually Active: Not on file Other Topics Concern ??? Not on file Social History Narrative ??? No narrative on file Review of Systems Review of Systems Constitutional: Negative for fever and chills. HENT: Negative for neck pain. Respiratory: Negative for cough and shortness of breath. Cardiovascular: Negative for chest pain. Gastrointestinal: Positive for nausea, vomiting, abdominal pain and diarrhea. Genitourinary: Positive for flank pain. Negative for dysuria, urgency and frequency. Musculoskeletal: Negative for back pain. Neurological: Negative for dizziness, loss of consciousness and headaches. All other systems reviewed and are negative. Physical Exam BP 158/114 Pulse 90 Temp 98.1 ??F Resp 18 Ht 5' 6 (1.676 m) Wt 186 lb (84.369 kg) BMI 30.02 kg/m2 SpO2 100% Physical Exam Nursing note and vitals reviewed. Constitutional: She is oriented to person, place, and time and well-developed, well-nourished, and in no distress. No distress. HENT: Head: Normocephalic and atraumatic. Right Ear: External ear normal. Left Ear: External ear normal. Mouth/Throat: Oropharynx is clear and moist. Mucous membranes are dry. Eyes: Conjunctivae and EOM are normal. Pupils are equal, round, and reactive to light. Neck: Normal range of motion. Neck supple. Cardiovascular: Normal rate and regular rhythm. Pulmonary/Chest: Effort normal. No respiratory distress. Abdominal: Soft. She exhibits no distension. There is tenderness in the right upper quadrant. TTP RUQ Musculoskeletal: Normal range of motion. She exhibits no edema and no tenderness. Neurological: She is alert and oriented to person, place, and time. GCS score is 15. Skin: Skin is warm and dry. She is not diaphoretic. Medications No current outpatient prescriptions on file. Procedures Procedures EKG Interpretation Clinical Impression: non-specific EKG. Rhythm: normal sinus. Rate: normal. Heart rate:89. Ectopy: none. Blocks: none. [place]: normal. ST Segment Comments: NSTE T-Waves: normal. Other findings: LVH. EKG date completed: 03/11/2012 EKG time completed:8:51AM ECG Rhythm Interpretation ECG Rhythm: normal sinus. ECG Rate: normal. ECG Heart Rate: 89. ECG Ectopy: none. Ecg Blocks: none. Lab Interpretation Oxygen Saturation Interpretation The oxygen saturation level is: 100%. The patient was on Room Air for the saturation measurement. Measurement frequency: Spot Check. Oxygen saturation interpretation is Normal. Intervention(s) used: None. Results for orders placed during the hospital encounter of 03/11/12 CBC W AUTO DIFFERENTIAL Component Value Range WBC 6.4 4.4 - 10.7 1000/mm3 RBC 4.44 3.80 - 5.20 10X6 Hgb 13.6 12.0 - 15.6 gm/dL Hct 38.3 35.9 - 45.5 % MCV 86.3 80.7 - 98.3 fl MCH 30.6 26.7 - 34.0 pg MCHC 35.5 30.8 - 35.9 gm/dL RDW 12.4 12.1 - 14.9 % Plt Ct 260 153 - 416 1000/mm3 MPV 10.9 9.4 - 12.9 fl Gran 56.1 44 - 73 % Immature Gran 0.3 0 - 1 % Lymph 37.6 20 - 43 % [place] 5.5 5 - 13 % Eos 0.3 0 - 6 % Baso 0.2 0 - 2 % Gran Abs 3.58 2.01 - 7.14 Immature Gran Abs 0.02 0.00 - 0.06 Lymph Abs 2.40 1.07 - 3.94 Cowley Abs 0.35 0.26 - 1.07 Eos Abs 0.02 0.00 - 0.47 Baso Abs 0.01 0.00 - 0.08 Manual Diff Comment Not Indicated COMPREHENSIVE METABOLIC PANEL Component Value Range BUN 8 7.0 - 21.0 mg/dL Sodium 138 136 - 145 mmol/L Potassium 3.5 3.5 - 5.1 mmol/L Chloride 101 98.0 - 107.0 mmol/L Glucose 270 (*) 74 - 106 mg/dL Creatinine 0.53 0.5 - 1.3 mg/dL AST/SGOT 27 5 - 40 U/L Alk Phos 92 38 - 126 U/L Calcium 9.0 8.5 - 10.1 mg/dL Bili Total 0.8 0.2 - 1.0 mg/dL Albumin 3.5 3.4 - 5.0 gm/dL Protein Total 8.5 (*) 6.4 - 8.2 gm/dL CO2 27 22.0 - 30.0 mmol/L ALT/SGPT 40 12 - 78 U/L eGFR by MDRD 155 Anion Gap 10.0 5 - 15 mmol/L URINALYSIS ROUTINE W/REFLEX TO CULTURE Component Value Range Color UA YELLOW Character UA CLOUDY Specific [place] UA 1.018 1.005 - 1.0300 pH Units 7.0 4.6 - 8.0 pH Units Leukocyte UA NEGATIVE Negative /ul Nitrite UA NEGATIVE Negative Protein UA 100 Negative mg/dL Glucose UA 500 Normal mg/dL Ketone UA TRACE Negative mg/dL Urobilinogen UA 1.0 Normal Ailin Units Bili UA NEGATIVE Negative mg/dL Blood UA NEGATIVE Negative /ul WBC UA 5-10 (*) <5 /HPF RBC UA 0-2 <5 /HPF Epithelial Cell UA 5-10 (*) <5 /HPF Casts UA 5-10 (*) <2 /LPF Bacteria UA NEGATIVE UA Culture No culture to be done per protocol. LIPASE BLOOD Component Value Range Lipase 77 73 - 393 U/L AMYLASE BLOOD Component Value Range Amylase 24 15 - 115 U/L HCG URINE QUALITATIVE - POINT OF CARE (IP) Component Value Range HCG Qual Urine negative Negative QC Verified yes Yes US ABDOMEN LIMITED Final Result: Moderate to severe hydronephrosis of the right kidney is present and is of uncertain etiology. Right upper quadrant ultrasound is otherwise unremarkable. This examination was transcribed using the [employer]by[employer] voice recognition system without human critical care rn. In an effort to expedite patient care, this report has not been adjusted for typographical, grammatical, and syntax by a trained medical records auditor. CT RENAL STONE Final Result: The right kidney appears severely hydronephrotic with gross calyceal dilatation. The right ureter is relatively small however an obstruction may be present at the level of the ureterovesical junction. No definite ureteral calculi are seen on the right. A retrograde study would be recommended for further evaluation. Small nonobstructing renal calculi are present bilaterally. This examination was transcribed using the [employer] voice recognition system without human critical care rn. In an effort to expedite patient care, this report has not been adjusted for typographical, grammatical, and syntax by a trained medical records auditor. Progress Notes 12:20 PM: [facility], Dr. Balbuena incident response coordinator. 1:40 PM: Dr. Balbuena out of town. I discussed with (Urology) all pertinent aspects of the case, the pt's current condition, and my clinical impression. Recommends that the pt f/u with him in office at 1pm tomorrow. 1:43 PM: Recheck patient; I have informed the patient of the proposed management and plan. The patient reports that they are feeling improved at this time after treatment in the ED. Currently pain is controlled. I have given instructions regarding the diagnostic findings and proposed management as well as any return precautions. Patient instructed to follow up with Dr. Briseno tomorrow at 1pm. Patient is stable and is comfortable with going home. The opportunity for questions was given and questions wereanswered to the patient's satisfaction. All questions and concerns have been addressed. 0 Vitals at Discharge: BP 150/94 Pulse 85 Temp 98.1 ??F Resp 18 Ht 5' 6 (1.676 m) Wt 186 lb (84.369 kg) BMI 30.02 kg/m2 SpO2 99% on RA VSS and WNL ED Course Medical Decision Making I have reviewed the: Previous Chart, Nursing Notes and Vitals. I have interpreted the following results: Labs, 12 Lead EKG, Rhythm Strip, Ultrasound, CT Scans andOxygen Saturation. I have discussed the case with Urology (Dr. Briseno). Orders Placed This Encounter ??? US ABD LIMITED (RUQ) ??? CT RENAL STONE ??? CBC W AUTO DIFFERENTIAL ??? COMPREHENSIVE METABOLIC PANEL ??? URINALYSIS ROUTINE W/REFLEX TO CULTURE ??? LIPASE BLOOD ??? AMYLASE BLOOD ??? HCG URINE QUALITATIVE - POINT OF CARE (IP) ??? EKG 12-LEAD ??? ondansetron (ZOFRAN) injection 4 mg ??? morphine injection 2 mg ??? ondansetron (ZOFRAN) injection 4 mg ??? ondansetron (ZOFRAN) injection ADS Med ??? hydrocodone-acetaminophen 5-500 MG tablet ??? ondansetron (ZOFRAN) 4 MG tablet New Prescriptions HYDROCODONE-ACETAMINOPHEN 5-500 MG TABLET Take 1-2 Tabs by mouth 4 times daily as needed for Pain. ONDANSETRON (ZOFRAN) 4 MG TABLET Take 1 Tab by mouth every 4 hours as needed for Nausea/Vomiting. Encounter Diagnoses Name Primary? Hydronephrosis ??? Nausea and vomiting ??? Flank pain Humble Briseno MD [address] [address] [phone] in 1 day Discharged to Home 03/11/2012 1:54 PM I have reviewed the information recorded by the scribe and agree with its accuracy and contents--Dr. Montoya Transcribed by George Martinez acting scribe on behalf of Dr. Montoya MATION MANAGER documented in this encounter Miscellaneous Notes * Miscellaneous Scans - Document, Scanned - 03/15/2012 10:35 AM CST MATION MANAGER documented in this encounter Plan of Treatment Not on file documented as of this encounter Procedures Procedure Name Priority Date/Time Associated Diagnosis Comments CARDIAC EKG ORDER 03/20/2012 9:3 [address] RENAL STONE STAT 03/11/2012 12:00 PM AUTOMATION MANAGER Hydronephrosis URINALYSIS REFLEX MICROSCOPIC REFLEX CULTURE STAT 03/11/2012 10:20 AM AUTOMATION MANAGER HCG URINE QUALITATIVE - POINT OF CARE STAT 03/11/2012 10:19 AM AUTOMATION MANAGER US ABDOMEN LIMITED STAT 03/11/2012 10 :02 AM AUTOMATION MANAGER EKG 12-LEAD STAT 03/11/2012 8:51 AM AUTOMATION MANAGER CBC W AUTO DIFFERENTIAL STAT 03/11/2012 8:35 AM AUTOMATION MANAGER COMPREHENSIVE METABOLIC PANEL STAT 03/11/2012 8:35 AM AUTOMATION MANAGER LIPASE BLOOD STAT 03/11/2012 8:35 AM AUTOMATION MANAGER AMYLASE BLOOD STAT 03/11/2012 8:35 AM AUTOMATION MANAGER documented in this encounter Results * CARDIAC EKG ORDER (03/20/2012 9:37 AM AUTOMATION MANAGER) Narrative 03/20/2012 9:37 AM AUTOMATION MANAGER Procedure Note Document, Scanned - 03/20/2012 9:37 AM CST Scanned Document CARDIAC SERVICES ORD ERABLES * CT RENAL STONE (03/11/2012 12:00 PM AUTOMATION MANAGER) Anatomical Region Laterality Modality Abdomen Computed Tomogra phy 03/11/2012 12:0 5 PM AUTOMATION MANAGER Impressions 03/11/2012 12:05 PM AUTOMATION MANAGER The right kidney appears severely hydronephrotic with gross calyceal dilatation. The right ureter is relatively small however an obstruction may be present at the level of the ureterovesical junction. No definite ureteral calculi are seen on the right. A retrograde study would be recommended for further evaluation. Small nonobstructing renal calculi are present bilaterally. This examination was transcribed using the [employer]by[employer] voice recognition system without human critical care rn. ??In an effort to expedite patient care, this report has not been adjusted for typographical, grammatical, and syntax by a trained medical records auditor. Narrative 03/11/2012 12:[address] Abdomen and Pelvis Noncontrast Indication: Abdominal pain. Technique: Noncontrast CT images of the abdomen and pelvis were performed. ??The stone protocol without IV contrast and without oral contrast was requested for this examination. 2D Computer generated reformations were obtained in the coronal plane. Findings: CT Abdomen: There is an approximately 3 mm diameter calculus at the upper pole of the right kidney. There is an approximately 1 mm diameter calculus at the lower pole of the right kidney. An approximately 3 mm diameter calculus is present at the mid left kidney. The right kidney is severely hydronephrotic with gross calyceal dilatation. The right ureter is relatively small and this may be secondary to a chronic UPJ obstruction. The right kidney does not appear atrophic, however. No definite ureteral calculus is identified. There is a calcification which lies anterior and medial to the right ureter on image 92 it appears to be venous in origin. The liver, spleen and pancreas have a homogeneous CT density, but cannot be fully evaluated on this limited protocol exam. Calcified granulomata within the spleen are consistent with old granulomatous disease. No dilated bowel loops can be seen. ??There is no free fluid in the abdomen. CT Pelvis: No calcified stones can be seen in the course of the distal ureters. ??No pelvic mass is present. Phleboliths are present in the retroperitoneum on the left. There are multiple phleboliths within the pelvis. Procedure Note Nova Murguia MD - 03/11/2012 CT Abdomen and Pelvis Noncontrast Indication: Abdominal pain. Technique: Noncontrast CT images of the abdomen and pelvis were performed. The stone protocol without IV contrast and without oral contrast was requested for this examination. 2D Computer generated reformations were obtained in the coronal plane. Findings: CT Abdomen: There is an approximately 3 mm diameter calculus at the upper pole of the right kidney. There is an approximately 1 mm diameter calculus at the lower pole of the right kidney. An approximately 3 mm diameter calculus is present at the mid left kidney. The right kidney is severely hydronephrotic with gross calyceal dilatation. The right ureter is relatively small and this may be secondary to a chronic UPJ obstruction. The right kidney does not appear atrophic, however. No definite ureteral calculus is identified. There is a calcification which lies anterior and medial to the right ureter on image 92 it appears to be venous in origin. The liver, spleen and pancreas have a homogeneous CT density, but cannot be fully evaluated on this limited protocol exam. Calcified granulomata within the spleen are consistent with old granulomatous disease. No dilated bowel loops can be seen. There is no free fluid in the abdomen. CT Pelvis: No calcified stones can be seen in the course of the distal ureters. No pelvic mass is present. Phleboliths are present in the retroperitoneum on the left. There are multiple phleboliths within the pelvis. IMPRESSION The right kidney appears severely hydronephrotic with gross calyceal dilatation. The right ureter is relatively small however an obstruction may be present at the level of the ureterovesical junction. No definite ureteral calculi are seen on the right. A retrograde study would be recommended for further evaluation. Small nonobstructing renal calculi are present bilaterally. This examination was transcribed using the [employer]by[employer] voice recognition system without human critical care rn. In an effort to expedite patient care, this report has not been adjusted for typographical, grammatical, and syntax by a trained medical records auditor. Ashley Montoya MD CT ORDERABLES * (ABNORMAL) URINALYSIS ROUTINE W/REFLEX TO CULTURE (03/11/2012 10:20 AM AUTOMATION MANAGER) Color UA YELLOW [facility] Character UA CLOUDY [facility] Specific [place] UA 1.018 1.005 - 1.0300 [facility] pH UA 7.0 4.6 - 8.0 pH Units [facility] Leukocyte UA NEGATIVE Negative /ul [facility] Nitrite UA NEGATIVE Negative [facility] Protein UA 100 Negative mg/dL [facility] Glucose UA 500 Normal mg/dL [facility] Ketone UA TRACE Negative mg/dL [facility] Urobilinogen UA 1.0 Normal Ailin Units [facility] Bilirubin UA NEGATIVE Negative mg/dL [facility] Blood UA NEGATIVE Negative /ul [facility] WBC UA 5-10(H) <5 /HPF [facility] RBC UA 0-2 <5 /HPF [facility] Epithelial Cell UA 5-10(H) <5 /HPF [facility] Casts UA 5-10(H) <2 /LPF [facility] Bacteria UA NEGATIVE [facility] [facility] Urine Culture No culture to be done per protocol. [facility] Urine specimen (specimen) URINE SPECIMEN OBTAINED BY CLEAN CATCH PROCEDURE / Unknown 03/11/2012 10:20 AM AUTOMATION MANAGER 03/11/2012 10:20 AM AUTOMATION MANAGER Ashley Montoya MD LAB - URINALYSIS ORD ERABLES [facility] [address] [place] [address] * HCG URINE QUALITATIVE - POINT OF CARE (IP) (03/11/2012 10:19 AM AUTOMATION MANAGER) HCG Qual Urine negative Negative DP POCT TESTING QC Verified yes Yes [facility] POC T TESTING Urine specimen (specimen) URINE / Unknown 03/11/2012 10:19 AM AUTOMATION MANAGER Ashley Montoya MD LAB - POINT OF CARE ORDERABLES DP POCT TESTING [address] [place] [address] * US ABD LIMITED (RUQ) (03/11/2012 10:02 AM AUTOMATION MANAGER) Anatomical Region Laterality Modality Abdomen Ultrasound 03/11/2012 10:0 7 AM AUTOMATION MANAGER Impressions 03/11/2012 10:07 AM AUTOMATION MANAGER Moderate to severe hydronephrosis of the right kidney is present and is of uncertain etiology. Right upper quadrant ultrasound is otherwise unremarkable. This examination was transcribed using the [employer]by[employer] voice recognition system without human critical care rn. ??In an effort to expedite patient care, this report has not been adjusted for typographical, grammatical, and syntax by a trained medical records auditor. Narrative 03/11/2012 10:07 AM AUTOMATION MANAGER RIGHT UPPER QUADRANT ULTRASOUND INDICATION: Right upper quadrant abdominal pain, vomiting TECHNIQUE: Grayscale images of the right upper quadrant were performed. FINDINGS: There is no evidence of cholelithiasis. The liver is normal in size and echogenicity. The common bile duct measures 0.34 cm. The visualized portions of the pancreas are unremarkable. The right kidney is moderately to severely hydronephrotic. The etiology of this is not clarified by this examination. It measures 10.92 x 5.21 x 6.01 cm. Procedure Note Nova Murguia MD - 03/11/2012 RIGHT UPPER QUADRANT ULTRASOUND INDICATION: Right upper quadrant abdominal pain, vomiting TECHNIQUE: Grayscale images of the right upper quadrant were performed. FINDINGS: There is no evidence of cholelithiasis. The liver is normal in size and echogenicity. The common bile duct measures 0.34 cm. The visualized portions of the pancreas are unremarkable. The right kidney is moderately to severely hydronephrotic. The etiology of this is not clarified by this examination. It measures 10.92 x 5.21 x 6.01 cm. IMPRESSION Moderate to severe hydronephrosis of the right kidney is present and is of uncertain etiology. Right upper quadrant ultrasound is otherwise unremarkable. This examination was transcribed using the [employer] voice recognition system without human critical care rn. In an effort to expedite patient care, this report has not been adjusted for typographical, grammatical, and syntax by a trained medical records auditor. Ashley Montoya MD US ORDERABLES * EKG 12-LEAD (03/11/2012 8:51 AM AUTOMATION MANAGER) Ventricular Rate 89 BPM [facility] M[facility] Atrial Rate 89 BPM [facility] P-R Interval 158 ms [facility] QRS Duration ms 78 ms [facility] Q-T Interval ms 378 ms [facility] QTC Calculation (Bezet) 459 ms [facility] MUSE Calculated P [place] 46 degrees [facility] MUSE Calculated R [place] 19 degrees [facility] Calculated T [place] 8 degrees [facility] Interpretation EKG Normal sinus rhythm Moderate voltage criteria for LVH, may be normal variant Nonspecific T wave abnormality Abnormal ECG No previous ECGs available Confirmed by BETH RYDER, CLAU ([id number]) on 03/12/2012 11:05:52 AM [facility] MUSE 03/11/2012 8:51 AM AUTOMATION MANAGER 03/12/2012 11:05 AM AUTOMATION MANAGER Narrative [facility] MUSE - 03/12/2012 11:07 AM AUTOMATION MANAGER Procedure Note Document, Scanned - 03/12/2012 7:34 AM CST Transcriptions Document, Scanned - 03/12/2012 11:07 AM CST Ashley Montoya MD ECG ORDERABLES [facility] * AMYLASE BLOOD (03/11/2012 8:35 AM AUTOMATION MANAGER) Amylase 24 15 - 115 U/L [facility] Blood specimen (specimen) BLOOD SPECIMEN / Unknown 03/11/2012 8:35 AM AUTOMATION MANAGER 03/11/2012 8:43 AM AUTOMATION MANAGER Narrative [facility] - 03/11/2012 9:05 AM AUTOMATION MANAGER Perform for patients with UPPER abd* Ashley Montoya MD LAB - CHEMISTRY EFREN FRANK [facility] [address] [place] [address] * LIPASE BLOOD (03/11/2012 8:35 AM AUTOMATION MANAGER) Lipase 77 73 - 393 U/L [facility] Blood specimen (specimen) BLOOD SPECIMEN / Unknown 03/11/2012 8:35 AM AUTOMATION MANAGER 03/11/2012 8:43 AM AUTOMATION MANAGER Narrative [facility] - 03/11/2012 9:05 AM AUTOMATION MANAGER Perform for patients with UPPER abd* Ashley Montoya MD LAB - CHEMISTRY EFREN FRANK Performing Organization Address [facility] Co de Phone Number [facility] [address] [place] [address] * (ABNORMAL) COMPREHENSIVE METABOLIC PANEL (03/11/2012 8:35 AM AUTOMATION MANAGER) BUN 8 7.0 - 21.0 mg/dL [facility] Sodium 138 136 - 145 mmol/L [facility] Potassium 3.5 3.5 - 5.1 mmol/L [facility] Chloride 101 98.0 - 107.0 mmol/L [facility] Glucose 270(H) 74 - 106 mg/dL [facility] Creatinine 0.53 0.5 - 1.3 mg/dL [facility] AST 27 5 - 40 U/L [facility] Alkaline Phosphatase 92 38 - 126 U/L [facility] Calcium 9.0 8.5 - 10.1 mg/dL [facility] Bilirubin Total 0.8 0.2 - 1.0 mg/dL [facility] Albumin 3.5 3.4 - 5.0 gm/dL [facility] Protein Total 8.5(H) 6.4 - 8.2 gm/dL [facility] CO2 27 22.0 - 30.0 mmol/L [facility] ALT 40 12 - 78 U/L [facility] eGFR by MDRD 155 mL/min/1.7 3m2 [facility] Anion Gap 10.0 5 - 15 mmol/L [facility] Blood specimen (specimen) BLOOD SPECIMEN / Unknown 03/11/2012 8:35 AM AUTOMATION MANAGER 03/11/2012 8:43 AM AUTOMATION MANAGER Narrative [facility] - 03/11/2012 9:05 AM AUTOMATION MANAGER Perform for patients with UPPER abd* Ashley Montoya MD LAB - CHEMISTRY EFREN FRANK Performing Organization Address [facility] Co de Phone Number [facility] [address] [place] [address] * CBC W AUTO DIFFERENTIAL (03/11/2012 8:35 AM AUTOMATION MANAGER) WBC 6.4 4.4 - 10.7 1000/mm3 [facility] RBC 4.44 3.80 - 5.20 10X6 [facility] Hemoglobin 13.6 12.0 - 15.6 gm/dL [facility] Hematocrit 38.3 35.9 - 45.5 % [facility] MCV 86.3 80.7 - 98.3 fl [facility] MCH 30.6 26.7 - 34.0 pg [facility] MCHC 35.5 30.8 - 35.9 gm/dL [facility] RDW 12.4 12.1 - 14.9 % [facility] Platelet Count 260 153 - 416 1000/mm3 [facility] MPV 10.9 9.4 - 12.9 fl [facility] Granulocytes % 56.1 44 - 73 % [facility] Immature Granulocytes % 0.3 0 - 1 % [facility] Lymphocytes % 37.6 20 - 43 % [facility] Monocytes % 5.5 5 - 13 % [facility] Eosinophils % 0.3 0 - 6 % [facility] Basophils % 0.2 0 - 2 % [facility] Granulocytes Absolute 3.58 2.01 - 7.14 [facility] Immature Granulocytes Absolute 0.02 0.00 - 0.06 [facility] Lymphocytes Absolute 2.40 1.07 - 3.94 [facility] Monocytes Absolute 0.35 0.26 - 1.07 [facility] Eosinophils Absolute 0.02 0.00 - 0.47 [facility] Basophils Absolute 0.01 0.00 - 0.08 [facility] Comment Manual Diff Not Indicated [facility] Blood specimen (specimen) BLOOD SPECIMEN / Unknown 03/11/2012 8:35 AM AUTOMATION MANAGER 03/11/2012 8:43 AM AUTOMATION MANAGER Narrative [facility] - 03/11/2012 8:52 AM AUTOMATION MANAGER Perform for patients with UPPER abd* Ashley Montoya MD LAB - HEMATOLOGY ORD ERABLES [facility] [address] [place] [address] documented in this encounter Visit Diagnoses Diagnosis Hydronephrosis Nausea and vomiting Nausea with vomiting Flank pain Abdominal pain, unspecified site documented in this encounter Administered Medications Inactive Administered Medications - up to 3 most recent administrations Medication Order MAR Action Action Date Dose Rate Site morphine injection 2 mg 2 mg, Intravenous, ONCE, 1 dose, On Sun03/11/12 at 0900 $ Given 03/11/2012 9:16 AM AUTOMATION MANAGER 2 mg ondansetron (ZOFRAN) injection 4 mg 4 mg, Intravenous, ONCE, 1 dose, On Sun03/11/12 at 0900 $ Given 03/11/2012 9:16 AM AUTOMATION MANAGER 4 mg ondansetron (ZOFRAN) injection 4 mg 4 mg, Intravenous, ONCE, 1 dose, On Sun03/11/12 at 1100 $ Given 03/11/2012 10:37 AM AUTOMATION MANAGER 4 mg ondansetron (ZOFRAN) injection ADS Med 1 dose, Starting on Sun03/11/12 at 1032, Until Sun03/11/12 at 1037, BIJU ACEVEDO: cabinet override documented in this encounter Active and Recently Administered Medications Times are shown in AUTOMATION MANAGER. Scheduled Medication Order 03/09/2012 03/10/2012 03/11/2012 morphine injection 2 mg (COMPLETED) 2 mg, Intravenous, ONCE, 1 dose, On Sun03/11/12 at 0900 0916 ($ Given - Prov ider: Lisseth Sarmiento RN) ondansetron (ZOFRAN) injection 4 mg (COMPLETED) 4 mg, Intravenous, ONCE, 1 dose, On Sun03/11/12 at 0900 0916 ($ Given - Prov ider: Lisseth Sarmiento RN) ondansetron (ZOFRAN) injection 4 mg (COMPLETED) 4 mg, Intravenous, ONCE, 1 dose, On Sun03/11/12 at 1100 1037 ($ Given - Prov ider: Biju Acevedo RN) documented in this encounter Care Teams Assembler Motor Vehicle Relationship Specialty Start Date End Date Jarred Rod MD PCP - General 03/11/12 10/29/23 documented as of this encounter
--- OUTSIDE RECORDS SUMMARY | 2024-03-02 22:16 | XMS_ITS | Encounter Summary ---
Author Organization [facility] Address [facility] [place] [address] Care Team Providers Care Business Systems Architect Name Role Phone Colton SILVEIRA MD, Abiodun Rushing Primary Care Provider Encounter Details Date Type Department Care Team (Latest Contact Info) Description 11/06/2023 Travel Social History Tobacco Use Types Packs/Day [...] on filedocumented in this encounter Care Teams Business Systems Architect Relationship Specialty Start Date End Date Abiodun Segura II, MD [address] [place] [phone] PCP - General Family Medicine 10/30/23 documented as of this encounter
--- OUTSIDE RECORDS SUMMARY | 2024-03-02 22:16 | XMS_ITS | Encounter Summary ---
Author Organization [facility] Address [facility] [place] [address] Care Team Providers Care Finished Goods Inspector Name Role Phone Jarred Rod MD Primary Care Provider Unav ailable Encounter Details Date Type Department Care Team (Late st Contact Info) Description 06/03/2013 Anesthesia Historic Visit [facility]GERY [address] [place] [address] Social History Tobacco Use Types Packs/Day Years [...] Sign Reading Time Taken Comments Blood Pressure 109/58 06/03/2013 8:47 AM CDT Pulse 77 06/03/2013 8:42 AM CDT Temperature - - Respiratory Rate 23 06/03/2013 8:42 AM CDT Oxygen Saturation - - Inhaled Oxygen Concentration - - Weight - - Height - - Body Mass Index - - documented in this encounter Plan of Treatment Not on file documented as of this encounter Visit Diagnoses Not on filedocumented in this encounter Care Teams Finished Goods Inspector Relationship Specialty Start Date End Date Jarred Rod MD PCP - General 03/11/12 10/29/23 documented as of this encounter
--- OUTSIDE RECORDS SUMMARY | 2024-03-02 22:16 | XMS_ITS | Encounter Summary ---
Author Organization [facility] Address [address] [facility] [address] Care Team Providers Care On Air Director Name Role Phone Colton SILVEIRA MD, Abiodun Rushing Primary Care Provider Reason for Visit * Reason Onset Date Comments Results 11/23/2023 Encounter Details Date Type Department Care Team (Late st Contact Info) Description 11/23/2023 Telephone [facility] - Infectious Disease [address] [place] [address], [facility] [place] [id number] Felicia Olivera MD [address] [place] [address] Results Social History Tobacco Use Types Packs/Day [...] encounter Miscellaneous Notes * Telephone Encounter - Felicia Olivera MD - 11/23/2023 12:39 PM CDT Called and left a VM for the patient to call back: her pharmacy and also to discuss UC results. HerUC grew E faecalis, sensitive to ampicillin, vancomycin, and nitrofurantoin; and resistant to tetracycline and doxycycline. She mentioned that in the past, Macrobid did not seem to wok well for her. If she agreed to try Macrobid, will prescribe it for her. Then when UTI symptoms resolves, will start a trial of Hiprex (methenamine hippurate). documented in this encounter Plan of Treatment Not on file documented as of this encounter Visit Diagnoses Not on filedocumented in this encounter Care Teams On Air Director Relationship Specialty Start Date End Date Abiodun Segura II, MD [address] [place] [phone] PCP - General Family Medicine 10/30/23 documented as of this encounter
--- OUTSIDE RECORDS SUMMARY | 2024-03-02 22:16 | XMS_ITS | Encounter Summary ---
Author Organization [facility] Address [address] [place], [place] [address] [address] Care Team Providers Care Plc Technician Name Role Phone Jarred Rod MD Primary Care Provider Unav ailable Encounter Details Date Type Department Care Team (Latest Contact Info) Description 03/11/2012 11:10 AM [facility]ICK[facility]ER - 03/11/2012 11:59 PM [facility] Hospital Encounter [facility] - [place] Scan [address] [place] [address] Ashley Montoya MD [address] [place] [address] Discharge Disposition: Home or Self Care Social [...] Procedure Name Priority Date/Time Associated Diagnosis Comments CT RENAL STONE STAT 03/11/2012 12:00 PM CHICKEN RAISER Hydronephrosis documented in this encounter Results * CT RENAL STONE (03/11/2012 12:00 PM CHICKEN RAISER) Anatomical Region Laterality Modality Abdomen Computed Tomogra phy 03/11/2012 12:0 5 PM CHICKEN RAISER Impressions 03/11/2012 12:05 PM CHICKEN RAISER The right kidney appears severely hydronephrotic with gross calyceal dilatation. The right ureter is relatively small however an obstruction may be present at the level of the ureterovesical junction. No definite ureteral calculi are seen on the right. A retrograde study would be recommended for further evaluation. Small nonobstructing renal calculi are present bilaterally. This examination was transcribed using the [employer] voice recognition system without human spring winder. ??In an effort to expedite patient care, this report has not been adjusted for typographical, grammatical, and syntax by a trained medical doctor md/medical director. Narrative 03/11/2012 12:[address] Abdomen and Pelvis Noncontrast Indication: Abdominal [...] bilaterally. This examination was transcribed using the [employer] voice recognition system without human spring winder. In an effort to expedite patient care, this report has not been adjusted for typographical, grammatical, and syntax by a trained medical doctor md/medical director. Ashley Montoya MD CT ORDERABLES documented in this encounter Visit Diagnoses Not on filedocumented in this encounter Care Teams Plc Technician Relationship Specialty Start Date End Date Jarred Rod MD PCP - General 03/11/12 10/29/23 documented as of this encounter
--- OUTSIDE RECORDS SUMMARY | 2024-03-02 22:16 | XMS_ITS | Patient Health Summary ---
Author Organization [facility] Address [address] [place] [address] Care Team Providers Care Habitat Conservation Planner Name Role Phone Colton SILVEIRA MD, Abiodun Rushing Primary Care Provider Note from [facility],non-owned Affiliates and Associated Physician Practices is amultiple site organization consisting of ambulatory clinics and hospital sitesin [place], [place], [place] and [place]. This disclosure is being madepursuant to the Care Everywhere program and may not contain all information available regarding this patient. Last updated 17.[facility] Allergies * Amoxicillin * Penicillins Medications * Be aware that medications may not be up to date on this document. Alwaysverify current medications with the patient. * hydrocodone-acetaminophen 5-500 MG tablet(Started 03/11/2012) Take 1-2 Tabs by mouth 4 times daily as needed for Pain. * ondansetron (ZOFRAN) 4 MG tablet(Started 03/11/2012) Take 1 Tab by mouth every 4 hours as needed for Nausea/Vomiting. Social History Tobacco Use Types Packs/Day Years [...] DT Respiratory Rate 12 03/23/2016 4:52 AM WINTERIZER Oxygen Saturation 99% 11/21/2023 10:21 AM CDT Inhaled Oxygen Concentration - - Weight 90.4 kg (199 lb 6.4 oz) 11/21/2023 10:21 AM CDT Height 167.6 cm (5' 6 ) 11/21/2023 10:21 AM CDT Body Mass Index 32.18 11/21/2023 10:21 AM CDT Procedures * CBC W AUTO DIFFERENTIAL(Performed 11/21/2023) Performed for Recurrent UTI * COMPREHENSIVE METABOLIC PANEL(Performed 11/21/2023) Performed for Recurrent UTI * URINALYSIS W/MICROSCOPIC REFLEX TO CULTURE(Performed 11/21/2023) Performed for Recurrent UTI * CULTURE URINE(Performed 11/21/2023) Performed for Recurrent UTI * GLUCOSE ACCUCHECK(Performed 03/23/2016) * CBC W AUTO DIFFERENTIAL(Performed 03/23/2016) * BASIC METABOLIC PANEL (CALCIUM TOTAL)(Performed 03/23/2016) * CBC W AUTO DIFFERENTIAL(Performed 03/23/2016) * GLUCOSE ACCUCHECK(Performed 03/22/2016) * GLUCOSE ACCUCHECK(Performed 03/22/2016) * GLUCOSE ACCUCHECK(Performed 03/22/2016) * GLUCOSE ACCUCHECK(Performed 03/22/2016) * LIPASE BLOOD(Performed 03/22/2016) * BASIC METABOLIC PANEL (CALCIUM TOTAL)(Performed 03/22/2016) * CBC W AUTO DIFFERENTIAL(Performed 03/22/2016) * CBC W AUTO DIFFERENTIAL(Performed 03/22/2016) * GLUCOSE ACCUCHECK(Performed 03/21/2016) * GLUCOSE ACCUCHECK(Performed 03/21/2016) * XR ABD OBSTRUCTION SERIES 2VW(Performed 03/21/2016) * GLUCOSE ACCUCHECK(Performed 03/21/2016) * GLUCOSE ACCUCHECK(Performed 03/21/2016) * BASIC METABOLIC PANEL (CALCIUM TOTAL)(Performed 03/21/2016) * CBC W AUTO DIFFERENTIAL(Performed 03/21/2016) * CBC W AUTO DIFFERENTIAL(Performed 03/21/2016) * GLUCOSE ACCUCHECK(Performed 03/20/2016) * GLUCOSE ACCUCHECK(Performed 03/20/2016) * VANCOMYCIN LEVEL TROUGH(Performed 03/20/2016) * GLUCOSE ACCUCHECK(Performed 03/20/2016) * US ABDOMEN LIMITED(Performed 03/20/2016) * GLUCOSE ACCUCHECK(Performed 03/20/2016) * GLUCOSE ACCUCHECK(Performed 03/20/2016) * CBC W AUTO DIFFERENTIAL(Performed 03/20/2016) * BASIC METABOLIC PANEL (CALCIUM TOTAL)(Performed 03/20/2016) * VANCOMYCIN LEVEL TROUGH(Performed 03/20/2016) * CBC W AUTO DIFFERENTIAL(Performed 03/20/2016) * GLUCOSE ACCUCHECK(Performed 03/19/2016) * GLUCOSE ACCUCHECK(Performed 03/19/2016) * GLUCOSE ACCUCHECK(Performed 03/19/2016) * GLUCOSE ACCUCHECK(Performed 03/19/2016) * GLUCOSE ACCUCHECK(Performed 03/19/2016) * GLUCOSE ACCUCHECK(Performed 03/19/2016) * CBC W AUTO DIFFERENTIAL(Performed 03/19/2016) * BASIC METABOLIC PANEL (CALCIUM TOTAL)(Performed 03/19/2016) * CBC W AUTO DIFFERENTIAL(Performed 03/19/2016) * GLUCOSE ACCUCHECK(Performed 03/19/2016) * GLUCOSE ACCUCHECK(Performed 03/18/2016) * GLUCOSE ACCUCHECK(Performed 03/18/2016) * GLUCOSE ACCUCHECK(Performed 03/18/2016) * VANCOMYCIN LEVEL TROUGH(Performed 03/18/2016) * GLUCOSE ACCUCHECK(Performed 03/18/2016) * GLUCOSE ACCUCHECK(Performed 03/18/2016) * GLUCOSE ACCUCHECK(Performed 03/18/2016) * CBC W AUTO DIFFERENTIAL(Performed 03/18/2016) * BASIC METABOLIC PANEL (CALCIUM TOTAL)(Performed 03/18/2016) * CBC W AUTO DIFFERENTIAL(Performed 03/18/2016) * GLUCOSE ACCUCHECK(Performed 03/18/2016) * GLUCOSE ACCUCHECK(Performed 03/17/2016) * CULTURE AEROBIC(Performed 03/17/2016) * GLUCOSE ACCUCHECK(Performed 03/17/2016) * CT NECK SOFT TISSUE W CONT(Performed 03/17/2016) * GLUCOSE ACCUCHECK(Performed 03/17/2016) * CULTURE URINE(Performed 03/17/2016) * URINALYSIS W/MICROSCOPIC NO CULTURE(Performed 03/17/2016) * GLUCOSE ACCUCHECK(Performed 03/17/2016) * CULTURE BLOOD(Performed 03/17/2016) * CULTURE BLOOD(Performed 03/17/2016) * CBC W AUTO DIFFERENTIAL(Performed 03/17/2016) * BASIC METABOLIC PANEL (CALCIUM TOTAL)(Performed 03/17/2016) * CBC W AUTO DIFFERENTIAL(Performed 03/17/2016) * XR CHEST 1VW PORTABLE(Performed 03/17/2016) * GLUCOSE ACCUCHECK(Performed 03/17/2016) * GLUCOSE ACCUCHECK(Performed 03/17/2016) * CK BLOOD(Performed 03/16/2016) * GLUCOSE ACCUCHECK(Performed 03/16/2016) * VAS ARTERIAL ANKLE ARM INDEX(Performed 03/16/2016) * GLUCOSE - POINT OF CARE (AMB) SLU(Performed 03/16/2016) * GLUCOSE - POINT OF CARE (AMB) SLU(Performed 03/16/2016) * GLUCOSE ACCUCHECK(Performed 03/16/2016) * GLUCOSE - POINT OF CARE (AMB) SLU(Performed 03/16/2016) * GLUCOSE - POINT OF CARE (AMB) SLU(Performed 03/16/2016) * GLUCOSE - POINT OF CARE (AMB) SLU(Performed 03/16/2016) * GLUCOSE - POINT OF CARE (AMB) SLU(Performed 03/16/2016) * GLUCOSE ACCUCHECK(Performed 03/16/2016) * GLUCOSE - POINT OF CARE (AMB) SLU(Performed 03/16/2016) * GLUCOSE - POINT OF CARE (AMB) SLU(Performed 03/16/2016) * GLUCOSE ACCUCHECK(Performed 03/16/2016) * URINALYSIS REFLEX TO MICROSCOPIC NO CULTURE(Performed 03/15/2016) * CULTURE BLOOD(Performed 03/15/2016) * CULTURE BLOOD(Performed 03/15/2016) * BLOOD GASES JOANIE(Performed 03/15/2016) * LACTIC ACID BLOOD(Performed 03/15/2016) * HEMOGLOBIN A1C(Performed 03/15/2016) * ERYTHROCYTE SEDIMENTATION RATE(Performed 03/15/2016) * CBC W AUTO DIFFERENTIAL(Performed 03/15/2016) * HYDROXYBUTYRATE BETA(Performed 03/15/2016) * COMPREHENSIVE METABOLIC PANEL(Performed 03/15/2016) * C-REACTIVE PROTEIN(Performed 03/15/2016) * CBC W AUTO DIFFERENTIAL(Performed 03/15/2016) * PTT [facility](Performed 03/15/2016) * PT-INR [facility](Performed 03/15/2016) * XR CHEST 1VW PORTABLE(Performed 03/15/2016) * XR FOOT LEFT 3VW OR MORE(Performed 03/15/2016) * XR FOOT LEFT 3VW OR MORE(Performed 01/22/2015) Performed for Left foot pain * XR FOOT LEFT 3VW OR MORE(Performed 08/07/2014) Performed for Pain in joint, ankle and foot, left * GLUCOSE ACCUCHECK(Performed 06/03/2013) * GLUCOSE ACCUCHECK(Performed 06/03/2013) * CARDIAC EKG ORDER(Performed 03/20/2012) * CT RENAL STONE(Performed 03/11/2012) Performed for Hydronephrosis * URINALYSIS REFLEX MICROSCOPIC REFLEX CULTURE(Performed 03/11/2012) * HCG URINE QUALITATIVE - POINT OF CARE(Performed 03/11/2012) * US ABDOMEN LIMITED(Performed 03/11/2012) * EKG 12-LEAD(Performed 03/11/2012) * AMYLASE BLOOD(Performed 03/11/2012) * LIPASE BLOOD(Performed 03/11/2012) * COMPREHENSIVE METABOLIC PANEL(Performed 03/11/2012) * CBC W AUTO DIFFERENTIAL(Performed 03/11/2012) Results * (ABNORMAL) URINALYSIS W/MICROSCOPIC REFLEX TO CULTURE (11/21/2023 12:45 PM CDT) Color UA Yellow Straw, Yellow 11/21/2023 1:[address] [facility] Clarity UA Cloudy(A) Clear 11/21/2023 1:[address] [facility] Specific [place] UA 1.014 1.005 - 1.030 11/21/2023 1:[address] [facility] pH UA 5.0 5.0 - 8.0 pH 11/21/2023 1:[address] [facility] Protein UA 2+(A) Negative 11/21/2023 1:[address] [facility] Glucose UA 1+(A) Negative 11/21/2023 1:[address] [facility] Ketone UA Negative Negative 11/21/2023 1:[address] [facility] Bilirubin UA Negative Negative 11/21/2023 1:38 PM CDT [facility] Blood UA Negative Negative 11/21/2023 1:[address] [facility] Nitrite UA Negative Negative 11/21/2023 1:[address] [facility] Leukocyte Esterase 3+(A) Negative 11/21/2023 1:[address] [facility] Urobilinogen UA Negative Negative mg/dL 11/21/2023 1:[address] [facility] RBC UA 6-10(A) None Seen, 0-2, 3-5 /HPF 11/21/2023 1:[address] [facility] WBC UA >100(A) None Seen, 0-5 /HPF 11/21/2023 1:[address] [facility] WBC Clumps Occasional( A) None /HPF 11/21/2023 1:[address] [facility] Bacteria UA 1+(A) None /HPF 11/21/2023 1:[address] [facility] Squamous Epithelial Cells UA 3-5 None Seen, 0-2, 3-5 /HPF 11/21/2023 1:[address] [facility] Mucus UA 1+ /LPF 11/21/2023 1:[address] [facility] Urine MID-STREAM URINE SPECIMEN / Unknown Collection / Unknown 11/21/2023 12:45 PM CDT 11/21/2023 1:12 PM CDT Narrative [facility] - 11/21/2023 1:38 PM CDT Lab Status, Culture Reflex Indicated. Felicia Olivera MD LAB - URINALYSIS ORD ERABLES [facility] [address] [place] [id number], [facility] [phone] * (ABNORMAL) CULTURE URINE (11/21/2023 12:45 PM CDT) Only the most recent of2 resultswithin the time period is included. Culture Urine >100,000 CFU/mL Enterococcus faecalis(A) JESSI 11/23/2023 11:19 AM CDT [facility]CRO[facility] Urine MID-STREAM URINE SPECIMEN / Unknown [...] Olivera MD LAB - MICROBIOLOGY O RDERABLES [facility] [address] [place] [address], [facility] [phone] * (ABNORMAL) CBC WITH DIFFERENTIAL (11/21/2023 12:45 PM CDT) Only the most recent of18 resultswithin the time period is included. WBC 9.7 4.0 - 10.7 x10E9/L 11/21/2023 1:[address] [facility] RBC Count 4.35 3.90 - 5.20 x10E12/L 11/21/2023 1:[address] [facility] Hemoglobin 12.9 11.9 - 15.8 g/dL 11/21/2023 1:[address] [facility] Hematocrit 38.4 34.8 - 46.1 % 11/21/2023 1:[address] [facility] MCV 88.3 80.0 - 98.0 fL 11/21/2023 1:[address] [facility] MCH 29.7 26.7 - 33.6 pg 11/21/2023 1:[address] [facility] MCHC 33.6 31.7 - 36.3 g/dL 11/21/2023 1:[address] [facility] RDW-CV 12.9 11.3 - 14.8 % 11/21/2023 1:[address] [facility] Platelet Count 278 150 - 420 x10E9/L 11/21/2023 1:[address] [facility] MPV 11.6(H) 7.8 - 11.4 fL 11/21/2023 1:[address] [facility] Neutrophil % 62.9 41.0 - 74.0 % 11/21/2023 1:[address] [facility] Lymphocyte % 31.1 17.0 - 47.0 % 11/21/2023 1:[address] [facility] Monocyte % 4.2 3.0 - 11.0 % 11/21/2023 1:[address] [facility] Eosinophil % 1.1 0.0 - 7.0 % 11/21/2023 1:[address] [facility] Basophil % 0.5 0.0 - 1.6 % 11/21/2023 1:[address] [facility] Immature Granulocytes % 0.2 0.0 - 1.0 % 11/21/2023 1:[address] [facility] Neutrophil Absolute 6.12 1.60 - 7.50 x10E9/L 11/21/2023 1:[address] [facility] Lymphocyte Absolute 3.03 1.00 - 4.40 x10E9/L 11/21/2023 1:[address] [facility] Monocyte Absolute 0.41 0.15 - 1.00 x10E9/L 11/21/2023 1:[address] [facility] Eosinophil Absolute 0.11 0.00 - 0.60 x10E9/L 11/21/2023 1:[address] [facility] Basophil Absolute 0.05 0.00 - 0.13 x10E9/L 11/21/2023 1:[address] [facility] Blood BLOOD SPECIMEN / Unknown Lab Venipuncture / Unknown 11/21/2023 12:45 PM CDT 11/21/2023 1:21 PM T Felicia Olivera MD LAB - HEMATOLOGY ORD ERABLES [facility] [address] [place] [address]RUST [phone] * (ABNORMAL) COMPREHENSIVE METABOLIC PANEL (11/21/2023 12:45 PM [facility]) Only the most recent of3 resultswithin the time period is included. BUN 15 7 - 26 mg/dL 11/21/2023 1:[address] [facility] Creatinine 0.87 0.56 - 0.96 mg/dL 11/21/2023 1:[address] [facility] Sodium 141 136 - 145 mmol/L 11/21/2023 1:[address] [facility] Potassium 3.5 3.5 - 4.5 mmol/L 11/21/2023 1:[address] [facility] Chloride 101 98 - 107 mmol/L 11/21/2023 1:[address] [facility] CO2 29 22 - 29 mmol/L 11/21/2023 1:[address] [facility] Glucose 210(H) 70 - 115 mg/dL 11/21/2023 1:[address] [facility] Calcium 9.2 8.4 - 10.2 mg/dL 11/21/2023 1:[address] [facility] Protein Total 8.6(H) 6.0 - 8.3 g/dL 11/21/2023 1:[address] [facility] Albumin 3.4 3.4 - 5.0 g/dL 11/21/2023 1:[address] [facility] Bilirubin Total 0.3 0.2 - 1.2 mg/dL 11/21/2023 1:[address] [facility] Alkaline Phosphatase 149 40 - 150 U/L 11/21/2023 1:[address] [facility] ALT 18 5 - 55 U/L 11/21/2023 1:[address] [facility] AST 18 5 - 34 U/L 11/21/2023 1:[address] [facility] Anion Gap 11 6 - 16 11/21/2023 1:[address] [facility] BUN/Creatinine Ratio 17 7 - 23 11/21/2023 1:[address] [facility] Osmolality Calculated 299(H) 275 - 295 mOsm/kg 11/21/2023 1:52 PM CDT [facility] Albumin/Globulin Ratio 0.7(L) 1.1 - 2.3 11/21/2023 1:52 PM CDT [facility] eGFR by CKD-EPI 80(L) >=90 mL/min/1.7 3 m2 11/21/2023 1:52 PM CDT [facility] Blood BLOOD SPECIMEN / Unknown Lab Venipuncture / Unknown 11/21/2023 12:45 PM CDT 11/21/2023 1:21 PM CDT Felicia Olivera MD LAB - CHEMISTRY EFREN FRANK Performing Organization Address City/[facility]/ZIP Co de Phone Number [facility] [address] [place] [address], [facility] [phone] * (ABNORMAL) GLUCOSE ACCUCHECK (03/23/2016 7:20 AM WINTERIZER) Only the most recent of40 resultswithin the time period is included. Pathologist [facility] Glucose, Fingerstick 117(H) 70-115mg/d L mg/dL [facility] ([facility]) Comment:Poultry Processor: ABDIFATAH MARTINEZ 03/23/2016 7:20 AM WINTERIZER Suzy Lara MD LAB - CHEMISTRY ORDERABLES Performing Organization Address City/[facility]/ZIP Co de Phone Number [facility] ([facility]) * (ABNORMAL) BASIC METABOLIC PANEL (CALCIUM TOTAL) (03/23/2016 2:40 AM WINTERIZER) Only the most recent of7 resultswithin the time period is included. BUN 12 7 - 26 mg/dL [facility] Creatinine 0.7 0.6 - 1.2 mg/dL [facility] Sodium 139 136 - 145 mmol/L [facility] Potassium 3.5 3.5 - 4.5 mmol/L [facility] Chloride 107 98 - 107 mmol/L [facility] CO2 23 22 - 29 mmol/L [facility] Glucose 133(H) 70 - 115 mg/dL [facility] Calcium 8.6 8.4 - 10.2 mg/dL [facility] Anion Gap 13 8 - 18 [facility] BUN/Creatinine Ratio 17 7 - 23 [facility] Osmolality Calculated 290 270 - 300 mOsm/kg [facility] eGFR >60 >60 mL/min/1.7 3 m2 [facility] Blood specimen (specimen) BLOOD SPECIMEN / Unknown 03/23/2016 2:40 AM WINTERIZER 03/23/2016 2:52 AM WINTERIZER Brigid Schultz MD LAB - CHEMISTRY ORDE ZAC Performing Organization Address City/[facility]/ZIP Co de Phone Number [address] [phone] * LIPASE BLOOD (03/22/2016 2:38 AM WINTERIZER) Only the most recent of2 resultswithin the time period is included. Lipase 22 8 - 78 Units/L [facility] Blood specimen (specimen) BLOOD SPECIMEN / Unknown 03/22/2016 2:38 AM WINTERIZER 03/22/2016 3:02 AM WINTERIZER Suzy Lara MD LAB - CHEMISTRY ORDERABLES Performing Organization Address [facility] Co de Phone Number [address] [phone] * XR ABD OBSTRUCTION SERIES 2VW (03/21/2016 2:37 PM WINTERIZER) Anatomical Region Laterality Modality Abdomen Other Impressions 03/21/2016 4:50 PM WINTERIZER IMPRESSION: 1. No evidence of bowel obstruction. 2. A 1.1 cm calcification adjacent to the left iliac crest, which could represent an enterolith or ureteral stone. Dictated by Bryce Jones MD (Resident). I, Dr. STUART CORDON M.D. have personally reviewed and interpreted this examination/study. This report was electronically signed by STUART CORDON M.D. ??on 03/21/2016 4:50 PM . Narrative 03/21/2016 4:50 PM WINTERIZER EXAMINATION: XR ABD OBSTRUCTION SERIES HISTORY: nausea with vomiting COMPARISON: No prior study is available for comparison. FINDINGS: There are no dilated bowel loops. Gas and stool is present throughout the colon and rectum. Scattered air-fluid levels are identified. There is no pneumoperitoneum. A 1.1 cm calcification is identified adjacent to the left iliac crest, which could represent an enterolith or ureteral stone. Procedure Note Stuart Cordon MD - 05/18/2017 EXAMINATION: XR ABD OBSTRUCTION SERIES HISTORY: nausea with vomiting COMPARISON: No prior study is available for comparison. FINDINGS: There are no dilated bowel loops. Gas and stool is present throughout thecolon and rectum. Scattered air-fluid levels are identified. There is nopneumoperitoneum. A 1.1 cm calcification is identified adjacent to theleft iliac crest, which could represent an enterolith or ureteral stone. IMPRESSION IMPRESSION: 1. No evidence of bowel obstruction. 2. A 1.1 cm calcification adjacent to the left iliac crest, which couldrepresent an enterolith or ureteral stone. Dictated by Bryce Jones MD (Resident). I, Dr. STUART CORDON M.D. have personally reviewed and interpreted thisexamination/study. This report was electronically signed by STUART CORDON M.D. on03/21/2016 4:50 PM . Tricia Bragg CASH [employer]OP FARMER-LEATHER SOFTENER DIAGNOSTIC IM AGING ORDERABLES * (ABNORMAL) VANCOMYCIN LEVEL TROUGH (03/20/2016 2:30 PM WINTERIZER) Only the most recent of3 resultswithin the time period is included. Vancomycin Trough 20.4(H) 10.0 - 20.0 mcg/mL [facility] Blood specimen (specimen) BLOOD SPECIMEN / Unknown 03/20/2016 2:30 PM WINTERIZER 03/20/2016 3:39 PM WINTERIZER Narrative [facility] - 03/20/2016 3:56 PM WINTERIZER Please change collection time to 14:30 today. ??Already drawn and sent to lab with patient label on. ??Thank you Libby Castellon MD LAB - CHEMISTRY EFREN FRANK [facility] Organization Address City/State/ZIP Co de Phone Number [facility] [address] [phone] * US ABDOMEN LIMITED (03/20/2016 11:13 AM WINTERIZER) Only the most recent of2 resultswithin the time period is included. Anatomical Region Laterality Modality Abdomen Other Impressions 03/20/2016 1:27 PM WINTERIZER IMPRESSION: 1. No evidence of acute cholecystitis. 2. Right hydronephrosis. Dictated by Reynaldo Flores MD (residential lawn specialist). This report was approved ??by Reynaldo Flores ?? on 03/20/2016 11:41 AM . I, Dr. CAITLIN MEHTA M.D. have personally reviewed and interpreted this examination/study. This report was electronically signed by CAITLIN MEHTA M.D. ??on 03/20/2016 1:27 PM . Narrative 03/20/2016 1:27 PM WINTERIZER EXAMINATION: Limited right upper quadrant abdominal sonogram HISTORY: Right upper quadrant pain COMPARISON: No prior study is available for comparison. FINDINGS: The liver is normal in echotexture and echogenicity with smooth surface contour. No discrete hepatic mass or intrahepatic biliary dilatation is seen. No gallstones or pericholecystic fluid is seen. The gallbladder wall is normal in thickness, measuring 3 mm. Sonographic Chow's sign is negative. The common bile duct is nondilated, measuring 4 mm. The right kidney measures 12.3 cm. Right hydronephrosis is seen. The spleen measures 9.5 cm in length. The visible pancreas is normal in echogenicity. No ascites is present. Procedure Note Caitlin Mehta MD - 05/18/2017 EXAMINATION: Limited right upper quadrant abdominal sonogram HISTORY: Right upper quadrant pain COMPARISON: No prior study is available for comparison. FINDINGS: The liver is normal in echotexture and echogenicity with smooth surfacecontour. No discrete hepatic mass or intrahepatic biliary dilatation isseen. No gallstones or pericholecystic fluid is seen. The gallbladder wall isnormal in thickness, measuring 3 mm. Sonographic Chow's sign isnegative. The common bile duct is nondilated, measuring 4 mm. The right kidney measures 12.3 cm. Right hydronephrosis is seen. Thespleen measures 9.5 cm in length. The visible pancreas is normal inechogenicity. No ascites is present. IMPRESSION IMPRESSION: 1. No evidence of acute cholecystitis. 2. Right hydronephrosis. Dictated by Reynaldo Flores MD (residential lawn specialist). This report was approved by Reynaldo Flores on 03/20/2016 11:41 AM . I, Dr. CAITLIN MEHTA M.D. have personally reviewed and interpreted thisexamination/study. This report was electronically signed by CAITLIN MEHTA M.D. on 03/20/20161:27 PM . Suzy Lara MD US ORDERABLES * (ABNORMAL) CULTURE AEROBIC (03/17/2016 6:30 PM WINTERIZER) Culture Aerobic No Growth at 24 hours [facility] Culture Aerobic COAG NEG STAPH SPECIES(A) [facility] Comment: Light Growth Coagulase Neg Staph Species 4 colonies at 48 hours. Gram Stain Rare Polymorphonuclear Cells [facility] Gram Stain No Organism Seen [facility] Abscess (Abscess (site in comments)) 03/17/2016 6:30 PM WINTERIZER 03/17/2016 8:07 PM WINTERIZER Narrative [facility] - 03/19/2016 5:39 PM WINTERIZER Posterior neck Specimen Type->Abscess Specimen Source->Abscess (must specify site in comments) Gram Stains are routinely screened for the presence of Polymorphonuclear Cells. Suzy Lara MD LAB - MICROBIOL OGY ORDERABLES Performing Organization Address City/State/[facility] Co de Phone Number [address] [phone] * CT NECK SOFT TISSUE W CONT (03/17/2016 3:48 PM WINTERIZER) Anatomical Region Laterality Modality Head Other Impressions 03/17/2016 3:59 PM WINTERIZER IMPRESSION: 1. Small abscess in the nuchal subcutaneous fat at the level of C2-3 superficial to the paraspinal musculature without evidence of deep extension. No evidence of cervical discitis or osteomyelitis. 2. Layering debris in the vitreous segment of the right orbit, correlate with ophthalmologic exam. This report was electronically signed by ANTIONE CAPUTO M.D. ??on 03/17/2016 3:59 PM . Narrative 03/17/2016 3:59 PM WINTERIZER EXAMINATION: ??Computed tomography (CT) of the neck with contrast HISTORY: Posterior neck swelling TECHNIQUE: CT of the neck was performed following the uneventful administration of 100 mL Omnipaque 350 intravenous contrast according to standard protocol. FINDINGS: No prior study is available for comparison at the time of this dictation. There is a rim-enhancing collection in the subcutaneous fat of the nuchal soft tissues at the level of C2-3 which is superficial to the paraspinal musculature and measures 17 mm AP by 14 mm TV (image 63 series 5) by 14 mm CC (image 68 series 7) most likely representing an abscess. No extension into the paraspinal musculature or cervical spine is identified. No cervical lymphadenopathy is seen. The muscles of the neck appear normal. The cervical internal carotid arteries and internal jugular veins appear normal. Fascial planes are preserved and the deep spaces of the neck appear normal. The visualized airway appears normal. The visualized portions of the posterior fossa and brain appear normal. The cervical spine appears normal without evidence of discitis or osteomyelitis. There is mild paranasal sinus disease. There is layering debris in the vitreous segment of the right orbit (image 4 series 5) The visualized lung apices are clear. Procedure Note Antione Caputo MD - 05/18/2017 EXAMINATION: Computed tomography (CT) of the neck with contrast HISTORY: Posterior neck swelling TECHNIQUE: CT of the neck was performed following the uneventfuladministration of 100 mL Omnipaque 350 intravenous contrast according tostandard protocol. FINDINGS: No prior study is available for comparison at the time of thisdictation. There is a rim-enhancing collection in the subcutaneous fat of the nuchalsoft tissues at the level of C2-3 which is superficial to the paraspinalmusculature and measures 17 mm AP by 14 mm TV (image 63 series 5) by 14 mmCC (image 68 series 7) most likely representing an abscess. No extension into the paraspinalmusculature or cervical spine is identified. No cervical lymphadenopathyis seen. The muscles of the neck appear normal. The cervical internalcarotid arteries and internal jugular veins appear normal. Fascial planes are preserved and the deep spaces of theneck appear normal. The visualized airway appears normal. The visualizedportions of the posterior fossa and brain appear normal. The cervicalspine appears normal without evidence of discitis or osteomyelitis. There is mild paranasal sinus disease. Thereis layering debris in the vitreous segment of the right orbit (image 4series 5) The visualized lung apices are clear. IMPRESSION IMPRESSION: 1. Small abscess in the nuchal subcutaneous fat at the level of C2-3superficial to the paraspinal musculature without evidence of deepextension. No evidence of cervical discitis or osteomyelitis. 2. Layering debris in the vitreous segment of the right orbit, correlatewith ophthalmologic exam. This report was electronically signed by ANTIONE CAPUTO M.D. on 03/17/20163:59 PM . Suzy Lara MD CT ORDERABLES * (ABNORMAL) URINALYSIS W/MICROSCOPIC NO CULTURE (03/17/2016 9:30 AM WINTERIZER) Color UA Yellow Straw, Yellow, Colorless, Light Yellow [facility] Clarity UA Hazy(A) Clear [facility] Specific [place] UA 1.027 1.001 - 1.030 [facility] pH UA 7.0 5.0 - 8.0 [facility] Protein UA Trace(A) <=20 mg/dL [facility] Glucose UA Negative Negative mg/dL [facility] Ketone UA Negative Negative mg/dL [facility] Bilirubin UA Negative Negative mg/dL [facility] Blood UA Negative Negative [facility] Nitrite UA Negative Negative [facility] Leukocyte Esterase Negative Negative [facility] Urobilinogen UA <2.0 <2.0 mg/dL [facility] RBC UA 3 0 - 8 /HPF [facility] WBC UA 2 0 - 2 /HPF [facility] Mucus UA Occasional( A) None /LPF [facility] Amorphous Crystals Moderate Rare, Occasional, Few, Moderate, None /HPF [facility] Urine specimen (specimen) 03/17/2016 9:30 AM WINTERIZER 03/17/2016 9:30 AM WINTERIZER Suzy Lara MD LAB - [place]INAL[place] [address], [facility] [phone] * CULTURE BLOOD (03/17/2016 6:53 AM WINTERIZER) Only the most recent of4 resultswithin the time period is included. Culture Blood No Growth at 5 days [facility] Blood specimen (specimen) (Venous, Peripheral) 03/17/2016 6:53 AM WINTERIZER 03/17/2016 6:58 AM WINTERIZER Narrative [facility] - 03/22/2016 7:00 AM WINTERIZER Draw 15 minutes after Culture 1 from a different site Suzy Lara MD LAB - MICROBIOL OGY ORDERABLES Performing Organization Address [facility] [place] [address], [facility] [phone] * XR CHEST 1VW PORTABLE (03/17/2016 6:00 AM WINTERIZER) Only the most recent of2 resultswithin the time period is included. Anatomical Region Laterality Modality Chest Other Impressions 03/17/2016 2:19 PM WINTERIZER IMPRESSION: The lung volumes are small. There is no focal consolidation, pleural effusion, or pneumothorax. The cardiomediastinal silhouette is normal. Dictated by Bryce Jones MD (Resident). I, Dr. CHERISE HORTA M.D. have personally reviewed and interpreted this examination/study. This report was electronically signed by CHERISE HORTA M.D. ??on 03/17/2016 2:19 PM . Narrative 03/17/2016 2:19 PM WINTERIZER EXAMINATION: PX CHEST 1 VW HISTORY: febrile COMPARISON: Comparison is made with a study from 03/15/2016. FINDINGS/ Procedure Note Cherise Horta MD - 05/18/2017 EXAMINATION: PX CHEST 1 VW HISTORY: febrile COMPARISON: Comparison is made with a study from 03/15/2016. FINDINGS/ IMPRESSION IMPRESSION: The lung volumes are small. There is no focal consolidation, pleuraleffusion, or pneumothorax. The cardiomediastinal silhouette is normal. Dictated by Bryce Jones MD (Resident). I, Dr. CHERISE HORTA M.D. have personally reviewed and interpreted thisexamination/study. This report was electronically signed by CHERISE HORTA M.D. on 03/17/20162:19 PM . Suzy Lara MD DIAGNOSTIC IMAG ING ORDERABLES * CK BLOOD (03/16/2016 8:37 PM WINTERIZER) CK Total 170 30 - 200 Units/L [facility] Blood specimen (specimen) BLOOD SPECIMEN / Unknown 03/16/2016 8:37 PM WINTERIZER 03/16/2016 8:40 PM WINTERIZER Michelet Magallanes MD LAB - CHEMISTRY EFREN FRANK Performing Organization Address City/[facility]/ZIP Co de Phone Number [address] [phone] * VAS ARTERIAL ANKLE ARM INDEX (03/16/2016 2:08 PM WINTERIZER) Anatomical Region Laterality Modality Other Suzy Lara MD VASCULAR LAB OR DERABLES * GLUCOSE - POINT OF CARE (AMB) [facility] (03/16/2016 1:05 PM WINTERIZER) Only the most recent of8 resultswithin the time period is included. Brigid Schultz MD LAB - POINT OF CARE ORDERABLES [facility] * (ABNORMAL) URINALYSIS REFLEX TO MICROSCOPIC NO CULTURE (03/15/2016 8:09 PM WINTERIZER) Color UA Yellow Straw, Yellow, Colorless, Light Yellow [facility] Clarity UA Clear Clear [facility] Specific [place] UA 1.006 1.001 - 1.030 [facility] pH UA 6.0 5.0 - 8.0 [facility] Protein UA 50(A) <=20 mg/dL [facility] Glucose UA 50(A) Negative mg/dL [facility] Ketone UA Trace(A) Negative mg/dL [facility] Bilirubin UA Negative Negative mg/dL [facility] Blood UA Negative Negative [facility] Nitrite UA Negative Negative [facility] Leukocyte Esterase Negative Negative [facility] Urobilinogen UA <2.0 <2.0 mg/dL [facility] RBC UA 2 0 - 8 /HPF [facility] WBC UA <1 0 - 2 /HPF [facility] Bacteria UA Rare Rare, Occasional, None /HPF [facility] Squamous Epithelial Cells UA 1 0 - 1 /HPF [facility] Urine specimen (specimen) 03/15/2016 8:09 PM WINTERIZER 03/15/2016 8:11 PM WINTERIZER Michelet Magallanes MD LAB - URINALYSIS ORD ERABLES [place] [address] [phone] * (ABNORMAL) BLOOD GASES JOANIE (03/15/2016 6:09 PM WINTERIZER) pH Mixed Venous 7.45(H) 7.30 - 7.40 [facility] pCO2 Mixed Venous 39(L) 40 - 46 mmHg [facility] pO2 Mixed Venous 23(L) 35 - 42 mmHg [facility] HCO3 Mixed Venous 25.9 22.0 - 26.0 mmol/L [facility] TCO2 Mixed Venous 27.0 25.0 - 29.0 mmol/L [facility] Base Excess Venous 1.7 -2.0 - 2.0 mmol/L [facility] Hemoglobin Mixed Venous 8.5(L) 12.0 - 15.5 g/dL [facility] Oxyhemoglobin Mixed Venous 48.3(L) 66.0 - 77.0 % [facility] Carboxyhemoglobin Venous 0.3 0.0 - 3.0 % [facility] Methemoglobin 0.3 0.0 - 2.0 % [facility] FI O2 Mixed Venous 21.0 % [facility] Blood specimen (specimen) BLOOD SPECIMEN / Unknown 03/15/2016 6:09 PM WINTERIZER 03/15/2016 6:18 PM WINTERIZER Narrative [facility] - 03/15/2016 6:27 PM WINTERIZER FI02->21 Michelet Magallanes MD LAB - BLOOD GASES OR DERABLES [address] [phone] * (ABNORMAL) LACTIC ACID BLOOD (03/15/2016 6:09 PM WINTERIZER) Lactic Acid-Stat 2.2(HH) 0.5 - 2.0 mmol/L [facility] Comment:RESULTS CALLED TO AN D READ BACK BY Edyta Hudson RN AT 6:40 PM, 03/15/2016 Blood specimen (specimen) BLOOD SPECIMEN / Unknown 03/15/2016 6:09 PM WINTERIZER 03/15/2016 6:18 PM WINTERIZER Michelet Magallanes MD LAB - CHEMISTRY ORDE RABLES Performing Organization Address City/[facility]/ZIP Co de Phone Number [address] [phone] * (ABNORMAL) HEMOGLOBIN A1C (03/15/2016 6:09 PM WINTERIZER) Hemoglobin A1c 9.6(H) 4.4 - 6.3 % [facility] Estimated Average Glucose 229 mg/dL [facility] Comment: HbA1c Interpretation: Treatment target values recommended by ADA and other clinical organizations should be used to evaluate metabolic control in patients. Treatment Target Values: Normal : < 5.7% Pre-diabetes: 5.7-6.4% Diabetes: Equal to or greater than 6.5% Reference: [place] [employer] Standards of Care in Diabetes -2014 In patients 70 years and older consider HbA1c target range of 7.0-7.5% Reference: ??Diabetes Mellitus in Older People: Position Statement on behalf of the International Association of Gerontology and Geriatrics (IAGG), the Diabetes Working Constitution Party for Older People (EDWPOP), and the International Task Force of Experts in Diabetes. ??Conor Mcintyre et al. J [employer] [employer]. 2012 Test results diagnostic of diabetes should be repeated for confirmation. The Tosoh G8 assay for the measurement of HbA1c is a National Glycohemoglobin Standardization Program (NGSP)certified method. Results for patients with HbE disease should be interpreted with caution as this hemoglobinopathy has been shown to interfere with the Tosoh G8 assay. Blood specimen (specimen) BLOOD SPECIMEN / Unknown 03/15/2016 6:09 PM WINTERIZER 03/15/2016 6:18 PM WINTERIZER Suzy Lara MD LAB - CHEMISTRY ORDERABLES Performing Organization Address [facility]/ZIP Co de Phone Number [address] [phone] * (ABNORMAL) ERYTHROCYTE SEDIMENTATION RATE (03/15/2016 6:09 PM WINTERIZER) Erythrocyte Sedimentation Rate Westergren 73(H) 0 - 20 MM/HR [facility] Blood specimen (specimen) BLOOD SPECIMEN / Unknown 03/15/2016 6:09 PM WINTERIZER 03/15/2016 6:18 PM WINTERIZER Michelet Magallanes MD LAB - HEMATOLOGY ORD ERABLES Performing Organization Address [facility] Co de Phone Number [address] [phone] * (ABNORMAL) HYDROXYBUTYRATE BETA (03/15/2016 6:09 PM WINTERIZER) Beta-Hydroxybu tyrate 0.40(H) 0.02 - 0.27 mmol/L [facility] Blood specimen (specimen) BLOOD SPECIMEN / Unknown 03/15/2016 6:09 PM WINTERIZER 03/15/2016 6:19 PM WINTERIZER Michelet Magallanes MD LAB - CHEMISTRY ORDE RABLES Performing Organization Address [facility] Co de Phone Number [address] [phone] * (ABNORMAL) C-REACTIVE PROTEIN (03/15/2016 6:09 PM WINTERIZER) C-Reactive Protein 5.5(H) <=0.5 mg/dL [facility] Blood specimen (specimen) BLOOD SPECIMEN / Unknown 03/15/2016 6:09 PM WINTERIZER 03/15/2016 6:18 PM WINTERIZER Michelet Magallanes MD LAB - CHEMISTRY ORDE ZAC Performing Organization Address [facility]/State/ZIP Co de Phone Number [address] [phone] * PTT U (03/15/2016 6:08 PM WINTERIZER) APTT 25.5 23.0 - 38.4 Seconds [facility] Comment:Suggested therapeuti c range for full dose I.V. heparin therapy for venous thromboembolism is 66.0-91.0 seconds. Blood specimen (specimen) BLOOD SPECIMEN / Unknown 03/15/2016 6:08 PM WINTERIZER 03/15/2016 6:18 PM WINTERIZER Narrative [facility] - 03/15/2016 6:31 PM WINTERIZER Please ensure that the aPTT specimen is received in the clinical lab within 1 hour of collection if it is used for therapeutic heparin monitoring. Processing of heparinized specimens older than 1 hour may result in inaccurate test results. Is patient on Heparin, Argatroban or Dabigatran?->N Michelet Magallanes MD LAB - COAGULATION OR DERABLES Performing Organization Address [facility]/ZIP Co de Phone Number [address] [phone] * PT-INR U (03/15/2016 6:08 PM WINTERIZER) PT 12.9 12.1 - 14.8 Seconds [facility] INR 1.0 See Comment [facility] Comment: Suggested therapeutic range for low-intensity coumadin therapy for venous thromboembolism prophylaxis is an INR of 2.0-3.0. ??For high risk patients (Mitral Valve Prosthesis, Atrial Fibrillation, history of TIA/stroke), suggested prophylactic therapeutic range is an INR of 2.5-3.5. Blood specimen (specimen) BLOOD SPECIMEN / Unknown 03/15/2016 6:08 PM WINTERIZER 03/15/2016 6:18 PM WINTERIZER Narrative [facility] - 03/15/2016 6:30 PM WINTERIZER Is patient on Heparin, Argatroban or Dabigatran?->N Michelet Magallanes MD LAB - COAGULATION OR DERABLES [facility] [address] [place] [address], [facility] [phone] * XR FOOT LEFT 3VW OR MORE (03/15/2016 5:44 PM WINTERIZER) Only the most recent of3 resultswithin the time period is included. Anatomical Region Laterality Modality Ankle / Foot Other Impressions 03/16/2016 8:34 AM WINTERIZER IMPRESSION: 1. Cortical destruction of the head of the second metatarsal consistent with osteomyelitis. 2. No acute fracture or dislocation identified. Dictated by Bryce Jones MD (residential lawn specialist). I, Dr. CHERISE HORTA M.D. have personally reviewed and interpreted this examination/study. This report was electronically signed by CHERISE HORTA M.D. ??on 03/16/2016 8:34 AM . Narrative 03/16/2016 8:34 AM WINTERIZER EXAMINATION: PX FOOT LEFT 3+ VW HISTORY: prior osteo, post amputations, concern for infection COMPARISON: No prior study is available for comparison. FINDINGS: The patient is status post amputation of the second digit through the metatarsophalangeal joint and the third digit through the proximal phalanx.The osseous structures are intact and well aligned without acute fracture or dislocation. And area of cortical destruction at the head of the second metatarsal may represent osteomyelitis. Focal osteopenia at the fourth metatarsal head may represent an additional site of osteomyelitis. Sclerosis of the bones of the midfoot may be degenerative or due to early neuropathic arthropathy. There is soft tissue swelling present around the foot. Procedure Note Cherise Horta MD - 05/18/2017 EXAMINATION: PX FOOT LEFT 3+ VW HISTORY: prior osteo, post amputations, concern for infection COMPARISON: No prior study is available for comparison. FINDINGS: The patient is status post amputation of the second digit through themetatarsophalangeal joint and the third digit through the proximalphalanx.The osseous structures are intact and well aligned without acutefracture or dislocation. And area of cortical destruction at the head of the second metatarsal may representosteomyelitis. Focal osteopenia at the fourth metatarsal head mayrepresent an additional site of osteomyelitis. Sclerosis of the bones ofthe midfoot may be degenerative or due to early neuropathic arthropathy. There is soft tissue swelling presentaround the foot. IMPRESSION IMPRESSION: 1. Cortical destruction of the head of the second metatarsal consistentwith osteomyelitis. 2. No acute fracture or dislocation identified. Dictated by Bryce Jones MD (residential lawn specialist). I, Dr. CHERISE HORTA M.D. have personally reviewed and interpreted thisexamination/study. This report was electronically signed by CHERISE HORTA M.D. on 03/16/20168:34 AM . Michelet Magallanes MD DIAGNOSTIC IMAGING O RDERABLES * CARDIAC EKG ORDER (03/20/2012 9:37 AM WINTERIZER) Narrative 03/20/2012 9:37 AM WINTERIZER Procedure Note Document, Scanned - 03/20/2012 9:37 AM CST Scanned Document CARDIAC SERVICES ORD ERABLES * CT RENAL STONE (03/11/2012 12:00 PM WINTERIZER) Anatomical Region Laterality Modality Abdomen Computed Tomogra phy 03/11/2012 12:0 5 PM WINTERIZER Impressions 03/11/2012 12:05 PM WINTERIZER The right kidney appears severely hydronephrotic with gross calyceal dilatation. The right ureter is relatively small however an obstruction may be present at the level of the ureterovesical junction. No definite ureteral calculi are seen on the right. A retrograde study would be recommended for further evaluation. Small nonobstructing renal calculi are present bilaterally. This examination was transcribed using the [employer] voice recognition system without human component design engineer. ??In an effort to expedite patient care, this report has not been adjusted for typographical, grammatical, and syntax by a trained medical imaging director. Narrative 03/11/2012 12:[address] Abdomen and Pelvis Noncontrast Indication: Abdominal [...] bilaterally. This examination was transcribed using the [employer] voice recognition system without human component design engineer. In an effort to expedite patient care, this report has not been adjusted for typographical, grammatical, and syntax by a trained medical imaging director. Ashley Montoya MD CT ORDERABLES * (ABNORMAL) URINALYSIS ROUTINE W/REFLEX TO CULTURE (03/11/2012 10:20 AM WINTERIZER) Color UA YELLOW [facility] Character UA CLOUDY [facility] Specific [place] UA 1.018 1.005 - 1.0300 [facility] pH UA 7.0 4.6 - 8.0 pH Units [facility] Leukocyte UA NEGATIVE Negative /ul [facility] Nitrite UA NEGATIVE Negative [facility] Protein UA 100 Negative mg/dL [facility] Glucose UA 500 Normal mg/dL [facility] Ketone UA TRACE Negative mg/dL [facility] Urobilinogen UA 1.0 Normal Ailin Units [facility] Bilirubin UA NEGATIVE Negative mg/dL [facility] Blood UA NEGATIVE Negative /ul [facility] WBC UA 5-10(H) <5 /HPF [facility] RBC UA 0-2 <5 /HPF [facility] Epithelial Cell UA 5-10(H) <5 /HPF [facility] Casts UA 5-10(H) <2 /LPF [facility] Bacteria UA NEGATIVE [facility] Urine Culture No culture to be done per protocol. [facility] Urine specimen (specimen) URINE SPECIMEN OBTAINED BY CLEAN CATCH PROCEDURE / Unknown 03/11/2012 10:20 AM WINTERIZER 03/11/2012 10:20 AM WINTERIZER Ashley Montoya MD LAB - URINALYSIS ORD ERABLES Performing Organization Address City/[facility] Co de Phone Number [facility] [address] [place] [address] * HCG URINE QUALITATIVE - POINT OF CARE (IP) (03/11/2012 10:19 AM WINTERIZER) HCG Qual Urine negative Negative [facility] QC Verified yes Yes [facility] POC T TESTING Urine specimen (specimen) URINE / Unknown 03/11/2012 10:19 AM WINTERIZER Ashley Montoya MD LAB - POINT OF CARE ORDERABLES Performing Organization Address [facility] de Phone Number [facility] [address] [place] [address] * EKG 12-LEAD (03/11/2012 8:51 AM WINTERIZER) Ventricular Rate 89 BPM [facility] Atrial Rate 89 BPM [facility] P-R Interval 158 ms [facility] QRS Duration ms 78 ms [facility] Q-T Interval ms 378 ms [facility] QTC Calculation (Bezet) 459 ms [facility] Calculated P [place] 46 degrees [facility] Calculated R [place] 19 degrees [facility] Calculated T [place] 8 degrees [facility] Interpretation EKG Normal sinus rhythm Moderate voltage criteria for LVH, may be normal variant Nonspecific T wave abnormality Abnormal ECG No previous ECGs available Confirmed by BETH RYDER, [facility] ([id number]) on 03/12/2012 11:05:52 AM [facility] 03/11/2012 8:51 AM WINTERIZER 03/12/2012 11:05 AM WINTERIZER Narrative [facility] - 03/12/2012 11:07 AM WINTERIZER Procedure Note Document, Scanned - 03/12/2012 7:34 AM CST Transcriptions Document, Scanned - 03/12/2012 11:07 AM CST Ashley Montoya MD ECG ORDERABLES [facility] * AMYLASE BLOOD (03/11/2012 8:35 AM WINTERIZER) Amylase 24 15 - 115 U/L [facility] Blood specimen (specimen) BLOOD SPECIMEN / Unknown 03/11/2012 8:35 AM WINTERIZER 03/11/2012 8:43 AM WINTERIZER Narrative [facility] - 03/11/2012 9:05 AM WINTERIZER Perform for patients with UPPER abd* Ashley Montoya MD LAB - CHEMISTRY EFREN FRANK Performing Organization Address City/[facility]/ZIP Co de Phone Number [facility] [address] [place] [phone] Care Teams Habitat Conservation Planner Relationship Specialty Start Date End Date Abiodun Segura II, MD [address] [place] [id number] PCP - General Family Medicine 10/30/23
--- OUTSIDE RECORDS SUMMARY | 2024-03-02 22:16 | XMS_ITS | Clinical Summary ---
Author Organization [facility] Address [address] [place] [address] Care Team Providers Care Heater Mechanic Name Role Phone Jarred Rod MD Primary Care Provider [phone] Allergies Active Allergy Reactions Criticality Noted Date Comments Amoxicillin Rash Medium Moderate, Immediate reaction (occurred within 24 hours). Penicillin Allergy History Form completed,. Penicillins Rash Medium Moderate, Immediate reaction (occurred within 24 hours). Penicillin Allergy History Form completed,. Medications insulin lispro protamin-insuli n lispro (HumaLOG 75/25) 100 unit/mL (75-25) suspension Inject 65 Units under the skin every morning Active insulin lispro protamin-insuli n lispro (HumaLOG 75/25) 100 unit/mL (75-25) suspension Inject 55 Units under the skin nightly Active metoprolol (LOPRESSOR) 50 mg tablet Take 50 mg by mouth 2 (two) times a day Active simvastatin (ZOCOR) 40 mg tablet Take 40 mg by mouth nightly Active lisinopril (PRINIVIL,ZESTR IL) 40 mg tablet Take 40 mg by mouth nightly Active dulaglutide (TRULICITY) 1.5 mg/0.5 mL pen injector Inject 1.5 mg under the skin every 7 days Active aspirin 81 mg enteric coated tablet Take 1 tablet (81 mg total) by mouth daily 30 tablet 11 01/22/2019 Active docusate sodium (DOK) 100 mg tabletIndicatio ns:constipation Take 100 mg by mouth 2 (two) times a day as needed Active hydroCHLOROthia zide (HYDRODIURIL) 25 mg tablet Take 25 mg by mouth daily Active famotidine (PEPCID) 10 mg tablet Take 10 mg by mouth 2 (two) times a day as needed Active nitroglycerin (NITROSTAT) 0.[address] 1 tablet (0.4 mg total) under the tongue every 5 (five) minutes as needed for chest pain May repeat dose q 5 min, up to 3 doses total 90 tablet 3 07/07/2020 Active nitrofurantoin (MACRODANTIN) 50 mg capsule Take 50 mg by mouth as needed Take one tablet the same day or early the day after you have intercourse. 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, poor vision to left eye HYSTERECTOMY 02/20/2004 - 02/18/2005 BLADDER SUSPENSION ABSCESS DRAINAGE neck BREAST BIOPSY Left CERVIX REMOVAL Medical History Medical History Date Comments Type 2 diabetes mellitus (HCC) 07/11/2018 Hypertension 07/11/2018 Hypercholesteremia 07/11/2018 Nephrolithiasis 07/11/2018 Awareness under anesthesia GERD (gastroesophageal reflux disease) 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 Monthly or less 07/21/2020 Q2: How many drinks containi ng alcohol do you have on a typical day when you are drinking? 1 or 2 07/21/2020 Q3: How often do you have si x or more drinks on one occasion? Never 07/21/2020 Comments No Sex and Gender Information Value Date Recorded Sex Assigned at Not on file Legal Sex Female 10:55 AM GEOPHYSICAL PROSPECTING SURVEYOR Gender Identity Not on file Sexual Orientation Not on file Obstetrics History Last Filed Vital Signs Vital Sign Reading Time Taken Comments Blood Pressure 132/78 07/07/2020 1:03 PM CDT Pulse 77 07/07/2020 1:03 PM CDT Temperature 36.8 ??C (98.2 ??F) 04/12/2020 10:[address] Respiratory Rate 15 07/24/2018 4:50 PM CDT Oxygen Saturation 100% 07/07/2020 1:03 PM CDT Inhaled Oxygen Concentration - - Weight 91.2 kg (201 lb) 07/07/2020 1:03 PM CDT Height 167.6 cm (5' 6 ) 07/07/2020 1:03 PM CDT Body Mass Index 32.44 07/07/2020 1:03 PM CDT Plan of Treatment Not on file Medical Devices Implanted Type Area Shaper Operator Device Identifier Shelf Expiration Date Model / Serial / Lot [employer] [id number] Upsylon 35.4cm Elongation Profile Lightweight Large Pore Low - [id number] Implanted:Qty: 1 on 07/23/2018 by Aydin Hair MD at [facility] N/A: Pelvis [employer] 03/21/2021 [id number] / / [id number] Additional Health Concerns Infection Onset Date Last Indicated COVID19 Comment:12/15/2019 12/14/2019 12/13/2019 Insurance [facility] H[facility] REF [facility] REF Advance Directives For more information, please contact: [phone] * Full Code (Latest Code Status on File) Date Activated Date Inactivated Comments 07/23/2018 12:52 PM 07/24/2018 11:50 PM Care Teams Heater Mechanic Relationship Specialty Start Date End Date Jarred Rod MD PCP - General 09/16/16
--- OUTSIDE RECORDS SUMMARY | 2024-03-02 22:17 | XMS_ITS | Encounter Summary ---
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
--- OUTSIDE RECORDS SUMMARY | 2024-03-02 22:17 | XMS_ITS | Encounter Summary ---
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 Name Role Phone Jarred Rod MD Primary Care Provider [phone]- [phone] Encounter Details Date Type Department Care Team (Latest Contact Info) Description 07/23/2018 5:23 AM CDT - 07/24/2018 7:45 PM CDT Hospital Encounter [facility] [address] [place] [phone] [place] [address] [place] [id number] Discharge Disposition: Discharge to home or self care Social History Tobacco Use Types Packs/Day Years Used Date Smoking Tobacco: Never Alcohol Use Standard Drinks/Week Comments Not Currently 0 (1 standard drink = 0.6 oz pur e alcohol) Comments No Sex and Gender Information Value Date Recorded Sex Assigned at Not on file 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 Gender Identity Not on file Sexual Orientation Not on file documented as of this encounter Last Filed Vital Signs Vital Sign Reading Time Taken Comments Blood Pressure 137/82 07/24/2018 4:50 PM CDT Pulse 81 07/24/2018 4:50 PM CDT Temperature 36.4 ??C (97.5 ??F) 07/24/2018 4:50 PM CD T Respiratory Rate 15 07/24/2018 4:50 PM CDT Oxygen Saturation 99% 07/24/2018 4:50 PM CDT Inhaled Oxygen Concentration - - Weight 88.6 kg (195 lb 5.2 oz) 07/23/2018 6:32 A M CDT Height 167.6 cm (5' 6 ) 07/23/2018 8:55 PM CDT Body Mass Index 31.53 07/23/2018 6:32 AM CDT documented in this encounter Medications at Time of Discharge dulaglutide (TRULICITY) 1.5 mg/0.5 mL pen injector Inject 1.5 mg under the skin every 7 days insulin lispro protamin-insulin lispro (HumaLOG 75/25) 100 unit/mL (75-25) suspension Inject 65 Units under the skin every morning insulin lispro protamin-insulin lispro (HumaLOG 75/25) 100 unit/mL (75-25) suspension Inject 55 Units under the skin nightly lisinopril (PRINIVIL,ZESTRI L) 40 mg tablet Take 40 mg by mouth nightly metoprolol (LOPRESSOR) 50 mg tablet Take 50 mg by mouth 2 (two) times a day simvastatin (ZOCOR) 40 mg tablet Take 40 mg by mouth nightly docusate sodium (COLACE) 100 mg capsuleIndicatio ns:constipation Take 1 capsule (100 mg total) by mouth 2 (two) times a day For constipation. 60 capsule 07/23/2018 08/22/2018 HYDROcodone-acet aminophen (NORCO) 5-325 mg per tabletIndication s:Pain Take 1-2 tablets by mouth every 4 (four) hours as needed for pain for up to 30 doses 30 tablet 07/23/2018 07/07/2020 levoFLOXacin (LEVAQUIN) 500 mg tablet Take 0.5 tablets (250 mg total) by mouth daily 3 tablet 07/23/2018 01/22/2019 documented as of this encounter Ordered Prescriptions Prescription Sig Dispense Quantity Refills Last Filled Start Date End Date levoFLOXacin (LEVAQUIN) 500 mg tablet Take 0.5 tablets (250 mg total) by mouth daily 3 tablet 07/23/2018 9 docusate sodium (COLACE) 100 mg capsuleIndications :constipation Take 1 capsule (100 mg total) by mouth 2 (two) times a day For constipation. 60 capsule 07/23/2018 9 HYDROcodone-acetam inophen (NORCO) 5-325 mg per tabletIndications: Pain Take 1-2 tablets by mouth every 4 (four) hours as needed for pain for up to 30 doses 30 tablet 07/23/2018 1 documented in this encounter Discharge Disposition Disposition Code Departure Means Destination Discharge to home or self care documented in this encounter Progress Notes * Ekta Koroma NP - 07/24/2018 9:29 AM CDT Urologic Surgery Progress Note Encounter Date: 07/24/2018 Patient Name: Lena Mcneal Subjective: Patient doing well this am. Pain is well controlled with [place]. Escamilla removed this a. Ambulating. Denies any complaints of nausea or vomiting. No acute events overnight. Medications: MEDICATIONS FOR CURRENT ENCOUNTER: ?? SCHEDULED MEDICATIONS: enoxaparin 40 mg subcutaneous Daily-2100 insulin lispro 1-3 Units subcutaneous Nightly insulin lispro 1-5 Units subcutaneous TID with meals ketorolac 15 mg intravenous Q6H SARAH levoFLOXacin 500 mg intravenous Daily lisinopril 40 mg oral Nightly metoprolol 50 mg oral BID simvastatin 40 mg oral Nightly sodium chloride 0.9% 0.5-20 mL intra-catheter Q8H SARAH ? CONTINUOUS MEDICATIONS: ?? Current Facility-Administered Medications: ? acetaminophen (TYLENOL) tablet 650 mg, 650 mg, oral, Q6H PRN, Aydin Hair MD ? dextrose (GLUTOSE) 40 % gel 15 g, 15 g, oral, Q15 Min PRN OR dextrose (D10W) 10% bolus 250 mL, 250 mL, intravenous, Q15 Min PRN, Aydin Hair MD ? dextrose 5% and sodium chloride 0.45% with potassium chloride 20 mEq/L infusion (premix), 100 mL/hr, intravenous, Continuous, Aydin Hair MD, Last Rate: 100 mL/hr at 07/23/18 1313, 100 mL/hr at 07/23/18 1313 ? docusate sodium (COLACE) capsule 100 mg, 100 mg, oral, BID PRN, Aydin Hair MD ? enoxaparin (LOVENOX) syringe 40 mg, 40 mg, subcutaneous, Daily-2100, Aydin Hair MD, 40 mg at 07/24/18 0621 ? glucagon injection 1 mg, 1 mg, intramuscular, Q30 Min PRN, Aydin Hair MD ? HYDROcodone-acetaminophen (NORCO) 5-325 mg per tablet 2 tablet, 2 tablet, oral, QID PRN, Aydin Hair MD, 2 tablet at 07/24/18 0640 ? insulin lispro (HumaLOG) injection 1-3 Units, 1-3 Units, subcutaneous, Nightly, Aydin Hair MD, 3 Units at 07/23/184 ? insulin lispro (HumaLOG) injection 1-5 Units, 1-5 Units, subcutaneous, TID with meals, Aydin Hair MD, 2 Units at 07/24/18 0630 ? ketorolac (TORADOL) 15 mg/mL injection 15 mg, 15 mg, intravenous, Q6H SARAH, Aydin Hair MD, 15 mg at 07/24/18 0620 ? levoFLOXacin (LEVAQUIN) 500 mg/100 mL in dextrose 5% (premix) 500 mg, 500 mg, intravenous, Daily, Aydin Hair MD, Stopped at 07/24/18 0855 ? lidocaine in dextrose 5% 2 g/250 mL (8 mg/mL) infusion (premix), 1 mg/min, intravenous, Continuous, Elle Escobar CRNA, Stopped at 07/23/18 1237 ? lisinopril (PRINIVIL,ZESTRIL) tablet 40 mg, 40 mg, oral, Nightly, Aydin Hair MD, 40 mg at 07/23/18 2030 ? metoprolol (LOPRESSOR) tablet 50 mg, 50 mg, oral, BID, Aydin Hair MD, 50 mg at 07/24/18 0857 ? morphine injection 2 mg, 2 mg, intravenous, Q4H PRN, Aydin Hair MD, 2 mg at 905 ? ondansetron ODT (ZOFRAN-ODT) disintegrating tablet 4 mg, 4 mg, oral, Q6H PRN OR ondansetron (ZOFRAN) injection 4 mg, 4 mg, intravenous, Q6H PRN, Aydin Hair MD ? simvastatin (ZOCOR) tablet 40 mg, 40 mg, oral, Nightly, Aydin Hair MD, 40 mg at 07/23/182030 ? sodium chloride 0.9% flush 0.5-20 mL, 0.5-20 mL, intra-catheter, Q8H SARAH, yAdin Hair MD ? sodium chloride 0.9% flush 0.5-20 mL, 0.5-20 mL, intra-catheter, PRN, Aydin Hair MD ?? PRN MEDICATIONS: ??? acetaminophen ? dextrose OR dextrose ? docusate sodium ? glucagon ? HYDROcodone-acetaminophen ? morphine ? ondansetron ODT OR ondansetron ? sodium chloride 0.9% ?? HOME MEDS: HOME MEDICATIONS : ?? insulin lispro protamin-insulin lispro (HumaLOG 75/25) 100 unit/mL (75-25) suspension ?? insulin lispro protamin-insulin lispro (HumaLOG 75/25) 100 unit/mL (75-25) suspension ?? lisinopril (PRINIVIL,ZESTRIL) 40 mg tablet ?? metoprolol (LOPRESSOR) 50 mg tablet ?? simvastatin (ZOCOR) 40 mg tablet ?? docusate sodium (COLACE) 100 mg capsule ?? dulaglutide (TRULICITY) 1.5 mg/0.5 mL pen injector ?? HYDROcodone-acetaminophen (NORCO) 5-325 mg per tablet ?? levoFLOXacin (LEVAQUIN) 500 mg tablet ?? Allergies: Allergies Allergen Reactions ??? Amoxicillin Rash ??? Penicillins Rash Occurred within 24 hours Vitals BP 108/64 Pulse 80 Temp 36.8 ??C (98.2 ??F) Resp 18 Ht 167.6 cm (5' 6 ) Wt 88.6 kg (195 lb 5.2 oz) SpO2 100% BMI 31.53 kg/m?? Height: 167.6 cm (5' 6 ) Weight: 88.6 kg (195 lb 5.2 oz) Intake/Output: Intake/Output Summary (Last 24 hours) at 07/24/2018 0930 Last data filed at 07/24/2018 0435 Gross per 24 hour Intake 1200 ml Output 1125 ml Net 75 ml Physical Examination: General: Patient is alert and in no acute distress. Head: Normocephalic, atraumatic. Nares are symmetric without nasal flaring or respiratory distress.No lip cyanosis. Eyes: Sclera anicteric with extraocular eye movements intact. Cardiovascular: Peripheral perfusion appears adequate. Chest: Non-labored respirations. Comfortable respiratory effort. .Psychiatric: Normal affect and mood. Skin: Normal coloration and turgor. Abdomen: Soft, no rebound or guarding. Lap sites D/I Laboratory: Recent Labs Lab Units 07/24/18 0629 07/23/184 07/23/18 1716 POC GLUCOSE MONITOR mg/dL 177* 274* 223* Imaging: No results found. I have personally reviewed available radiographic images, and if available, the radiology report(s). I have discussed the results of the clinical lab tests and radiographic images with the patient. Assessment: 1. Robotic Assisted Sacrocolpopexy, cystoscopy Plan / Recommendations: 1. Discontinue escamilla catheter. Void trial today 2. Encourage diet as tolerating 3. Encourage ambulation 4. Discharge today if able to urinate and tolerating diet. Ekta Koroma NP 07/24/2018 documented in this encounter H&P Notes * Aydin Hair MD - 07/23/2018 7:18 AM CDT Patient was seen and examined. There are no changes to the history and physical. Patient elects to proceed with surgery as discussed. Source Note - Aydin Hair MD - 07/15/2018 7:31 AM CDT History and Physical SUBJECTIVE Patient is 48 y.o. female Black Or Non- with chief complaint of pelvic organ prolapase. She desires definitive surgical management. Past Medical History: Diagnosis Date ??? Hypercholesteremia 07/11/2018 ??? Hypertension 07/11/2018 ??? Nephrolithiasis 07/11/2018 ??? Type 2 diabetes mellitus (CMS/HCC) 07/11/2018 Past Surgical History: Procedure Laterality Date ??? ASPIRATION OF ABSCESS HEMATOMA CYST N/A 05/10/2012 ??? CYSTOSCOPY W/ URETERAL STENT PLACEMENT 2012 [facility] obstraction ??? 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 HYSTERECTOMY 2004 ??? LAPAROSCOPIC PYELOPLASTY 04/2012 ??? TOE AMPUTATION Left (Not in a hospital admission) Current Outpatient Medications Medication Sig Dispense Refill ??? dulaglutide (TRULICITY) 1.5 mg/0.5 mL pen injector Inject 1.5 mg under the skin every 7 days ??? insulin lispro protamin-insulin lispro (HumaLOG 75/25) 100 unit/mL (75-25) suspension Inject 65Units under the skin every morning ??? insulin lispro protamin-insulin lispro (HumaLOG 75/25) 100 unit/mL (75-25) suspension Inject 55Units under the skin nightly ??? lisinopril (PRINIVIL,ZESTRIL) 40 mg tablet Take 40 mg by mouth nightly ??? metoprolol (LOPRESSOR) 50 mg tablet Take 50 mg by mouth 2 (two) times a day ??? simvastatin (ZOCOR) 40 mg tablet Take 40 mg by mouth nightly No current facility-administered medications for this visit. Allergies Allergen Reactions ??? Amoxicillin Rash ??? Penicillins Rash Occurred within 24 hours Social History Tobacco Use ??? Smoking status: Never Smoker Substance Use Topics ??? Alcohol use: Not Currently Family History Problem Relation Age of Onset ??? Heart attack Mother ??? Heart attack Father ??? Stroke Sister Physical Exam: General: Patient is alert and oriented in no acute distress. Head: Normocephalic, atraumatic. Nares are symmetric without nasal flaring or respiratory distress.No lip cyanosis. Eyes: Sclera anicteric. Cardiovascular: Peripheral perfusion appears adequate. No digital clubbing or cyanosis present. Chest: Non-labored respirations. Comfortable respiratory effort without recruitment of accessory respiratory muscles. Abdominal: Abdomen soft, nontender, nondistended. No palpable masses. Gu: cervical stump +3 Musculoskeletal: Normal station and posture. Moves all extremities symmetrically. Neurological: No focal neurologic deficit. Psychiatric: Appropriate affect and mood. Skin: Normal coloration and turgor. Hematological/Immunological: No bleeding gums or jaundice. Lymphatic: No femoral or inguinal palpable lymphadenopathy. Assessment: Pelvic Organ Prolpase Plan: After discussion of all the treatment options for pelvic organ prolapse including observation, pessary, and surgery she present for robotic Sacral Colpopexy. We discussed all risks, benefits and alternatives. She understands the risks of bleeding, infection, open conversion, damage to the bowel or u rinary tract, discitis, bowel obstruction, lack of cure of prolapse, recurrence of prolapse, post operative voiding dysfunction including incontinence and retention, mesh exposure/extrusion into the vagina or urinary tract, pain, nerve injury, dyspareunia, and need for ancillary procedures. She wishes to proceed. * Aydin Hair MD - 07/23/2018 7:18 AM CDT Patient was seen and examined. There are no changes to the history and physical. Patient elects to proceed with surgery as discussed. Source Note - Aydin Hair MD - 07/21/2018 10:23 AM CDT History and Physical SUBJECTIVE Patient is 48 y.o. female Black Or Non- with chief complaint of pelvic organ prolapase. She desires definitive surgical management. Past Medical History: Diagnosis Date ??? Hypercholesteremia 07/11/2018 ??? Hypertension 07/11/2018 ??? Nephrolithiasis 07/11/2018 ??? Type 2 diabetes mellitus (CMS/HCC) 07/11/2018 Past Surgical History: Procedure Laterality Date ??? ASPIRATION OF ABSCESS HEMATOMA CYST N/A 05/10/2012 ??? CYSTOSCOPY W/ URETERAL STENT PLACEMENT 2012 [facility] obstraction ??? 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 HYSTERECTOMY 2004 ??? LAPAROSCOPIC PYELOPLASTY 04/2012 ??? TOE AMPUTATION Left (Not in a hospital admission) Current Outpatient Medications Medication Sig Dispense Refill ??? dulaglutide (TRULICITY) 1.5 mg/0.5 mL pen injector Inject 1.5 mg under the skin every 7 days ??? insulin lispro protamin-insulin lispro (HumaLOG 75/25) 100 unit/mL (75-25) suspension Inject 65Units under the skin every morning ??? insulin lispro protamin-insulin lispro (HumaLOG 75/25) 100 unit/mL (75-25) suspension Inject 55Units under the skin nightly ??? lisinopril (PRINIVIL,ZESTRIL) 40 mg tablet Take 40 mg by mouth nightly ??? metoprolol (LOPRESSOR) 50 mg tablet Take 50 mg by mouth 2 (two) times a day ??? simvastatin (ZOCOR) 40 mg tablet Take 40 mg by mouth nightly No current facility-administered medications for this visit. Allergies Allergen Reactions ??? Amoxicillin Rash ??? Penicillins Rash Occurred within 24 hours Social History Tobacco Use ??? Smoking status: Never Smoker Substance Use Topics ??? Alcohol use: Not Currently Family History Problem Relation Age of Onset ??? Heart attack Mother ??? Heart attack Father ??? Stroke Sister Physical Exam: General: Patient is alert and oriented in no acute distress. Head: Normocephalic, atraumatic. Nares are symmetric without nasal flaring or respiratory distress.No lip cyanosis. Eyes: Sclera anicteric. Cardiovascular: Peripheral perfusion appears adequate. No digital clubbing or cyanosis present. Chest: Non-labored respirations. Comfortable respiratory effort without recruitment of accessory respiratory muscles. Abdominal: Abdomen soft, nontender, nondistended. No palpable masses. Gu: Cervix at +3 Musculoskeletal: Normal station and posture. Moves all extremities symmetrically. Neurological: No focal neurologic deficit. Psychiatric: Appropriate affect and mood. Skin: Normal coloration and turgor. Hematological/Immunological: No bleeding gums or jaundice. Lymphatic: No femoral or inguinal palpable lymphadenopathy. Assessment: Pelvic Organ Prolpase Plan: After discussion of all the treatment options for pelvic organ prolapse including observation, pessary, and surgery she present for robotic Sacral Colpopexy. We discussed all risks, benefits and alternatives. She understands the risks of bleeding, infection, open conversion, damage to the bowel or u rinary tract, discitis, bowel obstruction, lack of cure of prolapse, recurrence of prolapse, post operative voiding dysfunction including incontinence and retention, mesh exposure/extrusion into the vagina or urinary tract, pain, nerve injury, dyspareunia, and need for ancillary procedures. She wishes to proceed. documented in this encounter Miscellaneous Notes * Plan of Care - Rosy Mcgrath RN - 07/24/2018 4:00 PM CDT Spoke to pt who plans to discharge home with and daughter with no discharge needs. Will continue to reassess for discharge needs. * Plan of Care - Paty Garrison RN - 07/24/2018 3:51 PM CDT Goals: Clinical Goals for the Shift: pain control, ambulation, tolerate diet, void spontaneously Summary: pain controlled with toradol and PRN norco. Ambulating in room slowly, tolerating diet. Still waiting for spontaneous void. Giving until 1630 per Ekta. VSS, Continue to monitor. * Plan of Care - Sandy Will RN - 07/24/2018 4:06 AM CDT Problem: Health Behavior: Goal: Understanding of discharge needs will improve Outcome: Progressing Problem: Lack of Knowledge: Goal: Ability to state ways to decrease the risk of falls will improve Outcome: Progressing Problem: Safety: Goal: Will remain free from falls Outcome: Progressing Goal: Will remain free from injury from falls Outcome: Progressing Goal: Will remain free from falls and injury in home environment Outcome: Progressing Problem: Lack of Knowledge: Goal: Ability to develop a pain control plan will improve Outcome: Progressing Goal: Ability to identify pain intensity on a pain scale and rate it consistently will improve Outcome: Progressing Goal: Ability to notify healthcare provider of pain before it becomes unmanageable or unbearable will improve Outcome: Progressing Problem: Medication: Goal: Satisfaction with pain management regimen will improve Outcome: Progressing Problem: Sensory: Goal: Ability to identify factors that increase the pain will improve Outcome: Progressing Goal: Pain level will decrease Outcome: Progressing Goals: Clinical Goals for the Shift: VSS. Pain control Summary: Pt's VSS throughout shift. Pain controlled with scheduled Toradol and PRN [place]. No complaints of nausea at this time. Will continue to monitor. * Op Note - Aydin Hair MD - 07/23/2018 7:30 AM CDT Surgeon: Aydin Bobby MD. Preoperative Diagnosis: vaginal vault prolapse. Postoperative Diagnosis: vaginal vault prolapse. Surgery Performed: Robotic sacral colpopexy, cystoscopy. Anesthesia: General with local. Indication: The patient is a 48 y.o. female with symptomatic pelvic organ prolapse. She and I discussed treatment options. She elected to proceed with a robotic sacral colpopexy. She understood the risks, including, but not limited to, bleeding, infection, failure to correct the prolapse, recurrence of the prolapse, mesh exposure, damage to the bowel or urinary tract, de mika, or worsening irritative voiding symptoms, urinary retention, postoperative stress incontinence, dyspareunia, pelvic pain, and the risks of anesthesia. She has no evidence of stress incontinence on examination by history or on urodynamics. She therefore elected to hold off on a sling placement. She does understand the risk of occult stress incontinence requiring a secondary procedure. Description of Procedure: The patient was correctly identified. Informed consent was obtained. She was brought to the operating room. A formal timeout was performed. General anesthesia was induced. She received IV antibiotics. SCDs were placed on the bilateral lower extremities for DVT prophylaxis. She was placed in dorsal lithotomy position. Careful attention was paid to positioning to ensure no nerve injury. Her abdomen and vagina were prepped and draped in a sterile fashion. A sterile Escamilla was placed. The initial camera trocar site was marked out 3 fingerbreadths above the umbilicus. This was anesthetized with Marcaine. The skin was incised. I dissected down to the level of the fascia. The fascia was sharply incised. I then used Metzenbaum scissors to open the peritoneum with careful attention being paid not to violate any underlying structures. I then placed 2 interrupted 0 Vicryl sutures which would later be used to reapproximate the fascia. The trocar was then placed. The abdomen was insufflated. There a few small adhesions to theleft upper quadrant that I took down sharply. An additional 3 robotic trocars were then placed in the standard fashion with a 8 mm assistant hvac mechanic port in the right upper quadrant. Careful attention was paid to ensure no violation of any underlying structures. She was then placed into steep trendelenburg. All pressure points were again checked for adequate padding. The robot was then docked. I proceeded to the console. A EEA Sizer was placed into the vagina. Using a combination of electrocautery and sharp dissection the peritoneum directly over the apex of the vagina was incised. There was quite a bit of scarring in this area due to previous supracervical hysterectomy. I created the plane between the vagina and the bladder anteriorly and the vagina and rectum Posteriorly taking care not to injure the vagina, bladder, or rectum. After completing the dissection, the Y mesh was then introduced. Using a series of 2-0 [place] sutures, the mesh was affixed anteriorly and posteriorly taking great care not to violate the vagina. I then identified the sacral promontory. The peritoneum over the sacral promontory was incised. I then dissected down and identified the anterior longitudinal ligament. The peritoneum was then opened down into the cul de sac. The apical end of the mesh was then brought up to thelevel of the sacral promontory. After deciding the appropriate level of tensioning, I went to the bedside to examine to ensure there was proper tensioning without anyevidence of over tensioning. There was no evidence ofany vaginal mesh extrusion or exposed stitches. There was good support of thewalls of the vagina with some residual movement as well. The excess apical mesh was then excised. The apical end of the mesh was affixed to the anterior longitudinal ligament with 2 interrupted [place] sutures. I then used a 2-0 Monocryl to retroperitonealize the entirety of the mesh. After completing the retroperitonealization ofthe mesh, I then removed all the instruments under direct vision. The trocarswere then removed. The pre-placed 0 Vicryl suture was then used to reapproximate the fascia for the camera trocar site.All the wounds were irrigated and closed with a 4-0 vicryl subcutaneous suture and 4-0 Monocryl subcuticular suture. Surgical Glue was applied. Rigid cystoscopy was carried out. There was no evidence of any bladder or urethral violation. Bilateral ureteral jets were documented.The scope was then withdrawn. The Foleycatheter was replaced. The patient was awakened and taken to the recovery room in stable condition. Counts: Sponge, instrument, and needle counts were correct. Specimen: None. Estimated Blood Loss: 30 IV Fluids: See anesthesia record. * Brief Op Note - Aydin Hair MD - 07/23/2018 7:30 AM CDT Operative Progress Note Surgical Team: Surgeon(s) and Role: * Aydin Hair MD - Primary Anesthesiologist: Kenan Burgess MD PHYSICAL THERAPY ASST: Elle Escobar CRNA; Funmi Foley CRNA Administrative Specialist: Milka Morales RN Administrative Specialist Relief: Alma Ugarte RN Scrub: [facility] SMOKING PIPE MAKER: Amarilis Rankin RN; Melissa Rhodes RN [place] Administrative Specialist: Lindsay Lazar RN DATE OF SURGERY : 07/23/2018 Preoperative Diagnosis: Pre-op Diagnosis * Cervical stump prolapse [N81.85] Postoperative Diagnosis: Post-op Diagnosis * Cervical stump prolapse [N81.85] Procedure(s): Procedure(s) (LRB): Robotic Assisted Sacrocolpopexy, Cystoscopy (N/A) Operative Findings: Estimated Blood Loss: 0 mL Intraoperative Fluids: mls Specimens: No specimen collected in procedure Implants: Implant Name Type Inv. Item Serial No. Cut Off Saw Grader Lot No. [id number] No. Used [employer] [id number] UPSYLON 35.4CM ELONGATION PROFILE LIGHTWEIGHT LARGE PORE LOW - [id number] [employer] [id number] Upsylon 35.4cm Elongation Profile Lightweight Large Pore Low [place] [employer] [id number] N/A 1 Blood/Blood Products Transfused: mls Complications: None Condition on Discharge from the operating room was stable Aydin Hair MD Date: 07/23/2018 Time: 11:39 AM No Resident involved on case documented in this encounter Plan of Treatment Not on file documented as of this encounter Procedures Procedure Name Priority Date/Time Associated Diagnosis Comments POCT GLUCOSE DEVICE Routine 07/24/2018 5 :05 PM CDT POCT GLUCOSE DEVICE Routine 07/24/2018 1 1:03 AM CDT POCT GLUCOSE DEVICE Routine 07/24/2018 6 :29 AM CDT POCT GLUCOSE DEVICE Routine 07/23/2018 8 :34 PM CDT POCT GLUCOSE DEVICE Routine 07/23/2018 5 :16 PM CDT POCT GLUCOSE DEVICE Routine 07/23/2018 1 1:06 AM CDT SI SACROCOLPOPEXY - ROBOTIC ASSISTED 07/23/2018 7:35 AM CDT Cervical stump prolapse POCT HCG, URINE Routine 07/23/2018 6:48 AM CDT POCT GLUCOSE DEVICE Routine 07/23/2018 6 :24 AM CDT B CHECK SAMPLE STAT 07/23/2018 6:15 AM CDT documented in this encounter Results * (ABNORMAL) POCT glucose (07/24/2018 5:05 PM CDT) [facility] Glucose, POC 206(H) 70 - 140 mg/dL [facility] Comment: For Glucose values <35 mg/dl when Hematocrit is >60 mg/dl,the test may not accurately detect significant hypoglycemia,and testing in the Laboratory should be considered if clinically indicated. Blood specimen (specimen) 07/24/2018 5:05 PM CDT 07/24/2018 5:05 PM CDT Narrative [facility] - 07/24/2018 5:07 PM CDT Aydin Hair MD LAB POCT ORDERABLES - D EVICE Final Result Performing Organization Address [facility] de Phone Number [facility] [address] [facility] [place], [place] [id number] * (ABNORMAL) POCT glucose (07/24/2018 11:03 AM CDT) Glucose, POC 221(H) 70 - 140 mg/dL [facility] Comment: For Glucose values <35 mg/dl when Hematocrit is >60 mg/dl,the test may not accurately detect significant hypoglycemia,and testing in the Laboratory should be considered if clinically indicated. Blood specimen (specimen) 07/24/2018 11:03 AM CDT 07/24/2018 11:03 AM CDT [facility] - 07/24/2018 11:05 AM CDT Aydin Hair MD LAB POCT ORDERABLES - D EVICE Final Result Performing Organization Address [facility] Co de Phone Number [facility] [address] [facility] [place] [address] * (ABNORMAL) POCT glucose (07/24/2018 6:29 AM CDT) Glucose, POC 177(H) 70 - 140 mg/dL [facility] Comment: For Glucose values <35 mg/dl when Hematocrit is >60 mg/dl,the test may not accurately detect significant hypoglycemia,and testing in the Laboratory should be considered if clinically indicated. Blood specimen (specimen) 07/24/2018 6:29 AM CDT 07/24/2018 6:29 AM CDT Narrative [facility] - 07/24/2018 6:32 AM CDT Aydin Hair MD LAB POCT ORDERABLES - D EVICE Final Result Performing Organization Address [facility] Co de Phone Number [facility] [address] [facility] [place] [address] * (ABNORMAL) POCT glucose (07/23/2018 8:34 PM CDT) Glucose, POC 274(H) 70 - 140 mg/dL [facility] Comment: For Glucose values <35 mg/dl when Hematocrit is >60 mg/dl,the test may not accurately detect significant hypoglycemia,and testing in the Laboratory should be considered if clinically indicated. Blood specimen (specimen) 07/23/2018 8:34 PM CDT 07/23/2018 8:34 PM CDT Cirilo [facility] - 07/23/2018 8:35 PM CDT Aydin Hair MD LAB POCT ORDERABLES - D EVICE Final Result Performing Organization Address [facility] Co de Phone Number [facility] [address] [place] [address] * (ABNORMAL) POCT glucose (07/23/2018 5:16 PM CDT) Glucose, POC 223(H) 70 - 140 mg/dL [facility] Comment: For Glucose values <35 mg/dl when Hematocrit is >60 mg/dl,the test may not accurately detect significant hypoglycemia,and testing in the Laboratory should be considered if clinically indicated. Blood specimen (specimen) 07/23/2018 5:16 PM CDT 07/23/2018 5:16 PM CDT Cirilo [facility] - 07/23/2018 5:20 PM CDT Aydin Hair MD LAB POCT ORDERABLES - D EVICE Final Result Performing Organization Address [facility]/ZIP Co de Phone Number [facility] [address] [facility] [place] [address] * POCT glucose (07/23/2018 11:06 AM CDT) Glucose, POC 108 70 - 140 mg/dL [facility] Comment: For Glucose values <35 mg/dl when Hematocrit is >60 mg/dl,the test may not accurately detect significant hypoglycemia,and testing in the Laboratory should be considered if clinically indicated. Blood specimen (specimen) 07/23/2018 11:06 AM CDT 07/23/2018 11:06 AM CDT Narrative [facility] - 07/23/2018 11:07 AM CDT Aydin Hair MD LAB POCT ORDERABLES - D EVICE Final Result Performing Organization Address [facility] Co de Phone Number [facility] [address] Department [place] [address] * POCT hCG, urine (07/23/2018 6:48 AM CDT) HCG, ur, POC Negative Lot Number [id number] QC Backgroud Clear Acceptable QC Control Line Acceptable Urine 07/23/2018 6:48 AM CDT Result [facility] Aydin Hair MD POINT OF CARE TEST ORDE RABLES Final Result * POCT glucose (07/23/2018 6:24 AM CDT) Glucose, POC 98 70 - 140 mg/dL [facility] Comment: For Glucose values <35 mg/dl when Hematocrit is >60 mg/dl,the test may not accurately detect significant hypoglycemia,and testing in the Laboratory should be considered if clinically indicated. Blood specimen (specimen) 07/23/2018 6:24 AM CDT 07/23/2018 6:24 AM CDT Narrative [facility] - 07/23/2018 6:28 AM CDT Aydin Hair MD LAB POCT ORDERABLES - D EVICE Final Result Performing Organization Address [facility]/ZIP Co de Phone Number [facility] [address] Department [place] [address] * Check Sample (07/23/2018 6:15 AM CDT) ABO Rh B Positive [facility] HCLL OTHER 07/23/2018 6:15 AM CDT 07/23/2018 6:21 AM CDT Narrative [facility] - 07/23/2018 6:55 AM CDT Aydin Hair MD LAB BLOOD ORDERABLES Fi nal Result Performing Organization Address [facility] Co de Phone Number [facility] [address] Department [place] [address] documented in this encounter Visit Diagnoses Not on filedocumented in this encounter Administered Medications Inactive Administered Medications - up to 3 most recent administrations Medication Order MAR Action Action Date Dose Rate Site acetaminophen (TYLENOL) tablet 1,000 mg 1,000 mg, oral, Once, On Sun07/23/18 at 0645, For 1 dose, Pre-Op, Indications: Pre-Emptive AnalgesiaIndications:P re-Emptive Analgesia Given 07/23/2018 6:47 AM CDT 1,000 mg dextrose (D10W) 10% bolus 250 mL 250 mL, intravenous, at 1,000 mL/hr, Administer over 15 Minutes, Every 15 min PRN, blood glucose less than 70 mg/dL and UNABLE to swallow/take PO glucose/juice., Starting on Sun07/23/18 at 1252, After treatment for hypoglycemia, recheck BG followed by treatment every 15 minutes until the BG is greater than 100 mg/dL. Then check BG 1 hour post treatment. If BG is less than 100 mg/dL, repeat Q15 minute BG checks and treatment. Call MD for each episode of hypoglycemia., Indications: hypoglycemic disorderIndications:hy poglycemic disorder dextrose (GLUTOSE) 40 % gel 15 g 15 g, oral, Every 15 min PRN, low blood sugar, blood glucose less than 70 mg/dL, Starting on Sun07/23/18 at 1252, If patient is alert and able to eat/drink, give 15 gm glucose or one juice (4 fluid ounces) NOT ORANGE JUICE. After treatment for hypoglycemia, recheck BG followed by treatment every 15 minutes until the BG is greater than 100 mg/dL. Then check BG 1 hour post-treatment. If BG is less than 100 mg/dL, repeat Q15 minute BG checks and treatment. Call MD for each episode of hypoglycemia. OYSTER SHUCKER STATES GLUTOSE-15 CONTAINS GLUCOSE 40% W/W (50% W/V), Indications: hypoglycemic disorderIndications:hy poglycemic disorder dextrose 5% and sodium chloride 0.45% with potassium chloride 20 mEq/L infusion (premix) 100 mL/hr, intravenous, Continuous, Starting on Sun07/23/18 at 1330, Phase I & Post-op Floor, Discontinue when tolerating clear liquid New Bag 07/23/2018 1:13 PM CDT 100 mL/hr 100 mL/hr dimenhyDRINATE (DRAMAMINE) injection 25 mg 25 mg, intravenous, Once, On Sun07/23/18 at 0645, For 1 dose, Pre-Op, Indications: Prevention of Nausea and VomitingIndications:Pr evention of Nausea and Vomiting Given 07/23/2018 7:30 AM CDT 25 mg enoxaparin (LOVENOX) syringe 40 mg 40 mg, subcutaneous, Daily (for enoxaparin), First dose on Sun07/24/18 at 0600, Indications: Deep Vein Thrombosis PreventionIndications: Deep Vein Thrombosis Prevention Given 07/24/2018 6:21 AM CDT 40 mg Right Outer Thigh gabapentin (NEURONTIN) tablet 600 mg 600 mg, oral, Once, On Sun07/23/18 at 0645, For 1 dose, Pre-Op, Indications: Pre-Emptive AnalgesiaIndications:P re-Emptive Analgesia Given 07/23/2018 6:47 AM CDT 600 mg hydrALAZINE (APRESOLINE) injection 5 mg 5 mg, intravenous, Administer over 2 Minutes, Every 15 min PRN, high blood pressure, Starting on Sun07/23/18 at 1106, For 4 doses, Phase I, Max cumulative dose 20 mg. Dose if systolic BP greater than 180 AND heart rate less than 70., Indications: hypertensionIndication s:hypertension Given 07/23/2018 11:16 AM CDT 5 mg Left Forearm HYDROcodone-acetaminop hen (NORCO) 5-325 mg per tablet 2 tablet 2 tablet, oral, 4 times daily PRN, 1st line for pain, Starting on Sun07/23/18 at 1252, May repeat in 1 hour if pain is uncontrolled or increasing. Max 2 doses within 1 dosing interval., Indications: PainIndications:Pain Given 07/24/2018 6:40 PM CDT 1 tablet Given 07/24/2018 4:49 PM CDT 1 tablet Given 07/24/2018 6:40 AM CDT 2 tablets HYDROmorphone (DILAUDID) injection 0.4 mg 0.4 mg, intravenous, Administer over 2 Minutes, Every 10 min PRN, 1st line for pain, Starting on Sun07/23/18 at 1106, For 5 doses, Phase I, Notify Anesthesiologist if total PACU dose reaches 2 mg and pain score 5/10 or more., Indications: PainIndications:Pain Given 07/23/2018 11:24 AM CDT 0.4 mg Left Forearm insulin lispro (HumaLOG) injection 1-3 Units 1-3 Units, subcutaneous, Nightly, First dose on Sun07/23/18 at 2100, Blood Sugar Mid Dose PM - PO patients 175 or less No insulin 176 - 200 1 unit 201 - 250 2 units 251 - 299 3 units Greater than 299 Call MD for hyperglycemia management instructions Do NOT hold for NPO status., Indications: Diabetes MellitusIndications:Diabetes Mellitus Given 07/23/2018 8:34 PM CDT 3 Units Right Upper Arm insulin lispro (HumaLOG) injection 1-5 Units 1-5 Units, subcutaneous, 3 times daily with meals, First dose on Sun07/23/18 at 1330, Blood Sugar Mid Dose meal time - PO patients 139 or less No insulin 140 - 175 1 unit 176 - 200 2 unit 201 - 250 3 units 251 - 299 5 units Greater than 299 Call MD for hyperglycemia management instructions Do NOT hold for NPO status., Indications: Diabetes MellitusIndications:Diabetes Mellitus Given 07/24/2018 5:06 PM CDT 3 Units Left Upper Arm Given 07/24/2018 11:03 AM CDT 3 Units L eft Lower Abdomen Given 07/24/2018 6:30 AM CDT 2 Units Ri ght Upper Arm ketorolac (TORADOL) 15 mg/mL injection 15 mg 15 mg, intravenous, Every 6 hours scheduled, First dose on Sun07/23/18 at 1330, For 3 days, Indications: PainIndications:Pain Given 07/24/2018 5:06 PM CDT 15 mg Given 07/24/2018 11:04 AM CDT 15 mg Given 07/24/2018 6:20 AM CDT 15 mg levoFLOXacin (LEVAQUIN) 500 mg/100 mL in dextrose 5% (premix) 500 mg 500 mg, intravenous, at 100 mL/hr, Administer over 60 Minutes, Daily, First dose on Sun07/24/18 at 0700, Indications: Post op SurgeryIndications:Post op Surgery New Bag 07/24/2018 6:20 AM CDT 500 mg 100 mL/hr lisinopril (PRINIVIL,ZESTRIL) tablet 40 mg 40 mg, oral, Nightly, First dose on Sun07/23/18 at 2100 Given 07/23/2018 8:30 PM CDT 40 mg metoprolol (LOPRESSOR) tablet 50 mg 50 mg, oral, 2 times daily, First dose on Sun07/23/18 at 1330 Given 07/24/2018 8:57 AM CDT 50 mg Given 07/23/2018 8:31 PM CDT 50 mg Given 07/23/2018 1:13 PM CDT 50 mg morphine injection 2 mg 2 mg, intravenous, Administer over 4 Minutes, Every 4 hours PRN, 2nd line for pain, Starting on Sun07/23/18 at 1252, May administer 1 hour after second dose of 1st line agent for uncontrolled or increasing pain., Indications: PainIndications:Pain Given 07/23/2018 7:05 PM CDT 2 mg Given 07/23/2018 3:05 PM CDT 2 mg ondansetron (ZOFRAN) injection 4 mg 4 mg, intravenous, Administer over 2 Minutes, Once, On Sun07/23/18 at 0645, For 1 dose, Pre-Op, Indications: Prevention of Post-Operative Nausea and VomitingIndications:Prevention of Post-Operative Nausea and Vomiting Given 07/23/2018 7:29 AM CDT 4 mg ondansetron (ZOFRAN) injection 4 mg 4 mg, intravenous, Administer over 2 Minutes, Every 6 hours PRN, nausea, vomiting, if not tolerating PO, Starting on Sun07/23/18 at 1252, Indications: nausea and vomitingIndications:nausea and vomiting ondansetron ODT (ZOFRAN-ODT) disintegrating tablet 4 mg 4 mg, oral, Every 6 hours PRN, nausea, vomiting, Starting on Sun07/23/18 at 1252, Indications: nausea and vomitingIndications:nausea and vomiting simvastatin (ZOCOR) tablet 40 mg 40 mg, oral, Nightly, First dose on Sun07/23/18 at 2100 Given 07/23/2018 8:31 PM CDT 40 mg documented in this encounter Active and Recently Administered Medications Times are shown in CDT. Scheduled Medication Order 07/22/2018 07/23/2018 07/24/2018 acetaminophen (TYLENOL) tablet 1,000 mg (COMPLETED) 1,000 mg, oral, Once, On Sun07/23/18 at 0645, For 1 dose, Pre-Op, Indications: Pre-Emptive Analgesia 0647 (Given - Provider: Aidan Shetty RN) dimenhyDRINATE (DRAMAMINE) injection 25 mg (COMPLETED) 25 mg, intravenous, Once, On Sun07/23/18 at 0645, For 1 dose, Pre-Op, Indications: Prevention of Nausea and Vomiting 0730 (Given - Provider: Aidan Shetty RN) enoxaparin (LOVENOX) syringe 40 mg 40 mg, subcutaneous, Daily (for enoxaparin), First dose on Sun07/24/18 at 0600, Indications: Deep Vein Thrombosis Prevention 0621 (Given - Provid er: Sandy Will RN) gabapentin (NEURONTIN) tablet 600 mg (COMPLETED) 600 mg, oral, Once, On Sun07/23/18 at 0645, For 1 dose, Pre-Op, Indications: Pre-Emptive Analgesia 0647 (Given - Provider: Aidan Shetty RN) insulin lispro (HumaLOG) injection 1-3 Units 1-3 Units, subcutaneous, Nightly, First dose on Sun07/23/18 at 2100, Blood Sugar Mid Dose PM - PO patients 175 or less No insulin 176 - 200 1 unit 201 - 250 2 units 251 - 299 3 units Greater than 299 Call MD for hyperglycemia management instructions Do NOT hold for NPO status., Indications: Diabetes Mellitus 2033 (Given - Provider: Sandy Will RN) insulin lispro (HumaLOG) injection 1-5 Units 1-5 Units, subcutaneous, 3 times daily with meals, First dose on Sun07/23/18 at 1330, Blood Sugar Mid Dose meal time - PO patients 139 or less No insulin 140 - 175 1 unit 176 - 200 2 unit 201 - 250 3 units 251 - 299 5 units Greater than 299 Call MD for hyperglycemia management instructions Do NOT hold for NPO status., Indications: Diabetes Mellitus 1308 (Not Given - Provider: Nallely New RN - Reason: Other - Comment: just done in recovery room)1719 (Given - Provider: Nallely New RN) 0630 (Given - Provider: Sandy Will RN)1103 (Given - Provider: Paty Garrison RN)1706 (Given - Provider: Paty Garrison RN) ketorolac (TORADOL) 15 mg/mL injection 15 mg 15 mg, intravenous, Every 6 hours scheduled, First dose on Sun07/23/18 at 1330, For 3 days, Indications: Pain 1313 (Given - Provider: Nallely New RN)1717 (Given - Provider: Nallely New RN) 0023 (Given - Provider: Sandy Will RN)0620 (Given - Provider: Sandy Will RN)1104 (Given - Provider: Paty Garrison RN)1706 (Given - Provider: Paty Garrison RN) levoFLOXacin (LEVAQUIN) 500 mg/100 mL in dextrose 5% (premix) 500 mg (COMPLETED) 500 mg, intravenous, at 100 mL/hr, Administer over 60 Minutes, Once, On Sun07/23/18 at 0645, For 1 dose, Pre-Op, Administer within 120 minutes of incision., Indications: Prophylaxis, Surgical 0735 (Given - Provider: Elle Escobar CRNA) levoFLOXacin (LEVAQUIN) 500 mg/100 mL in dextrose 5% (premix) 500 mg 500 mg, intravenous, at 100 mL/hr, Administer over 60 Minutes, Daily, First dose on Sun07/24/18 at 0700, Indications: Post op Surgery 0620 (New Bag - Provider: Sandy Will RN)0855 (Stopped - Provider: Paty Garrison, RN) lisinopril (PRINIVIL,ZESTRIL) tablet 40 mg 40 mg, oral, Nightly, First dose on Sun07/23/18 at 2100 2030 (Given - Provider: Sandy Will, DEANDRE) metoprolol (LOPRESSOR) tablet 50 mg 50 mg, oral, 2 times daily, First dose on Sun07/23/18 at 1330 1313 (Given - Provider: Nallely New RN)2030 (Given - Provider: Sandy Will, DEANDRE) 0857 (Given - Provider: Paty Garrison, DEANDRE) ondansetron (ZOFRAN) injection 4 mg (COMPLETED) 4 mg, intravenous, Administer over 2 Minutes, Once, On Sun07/23/18 at 0645, For 1 dose, Pre-Op, Indications: Prevention of Post-Operative Nausea and Vomiting 0729 (Given - Provider: Aidan Shetty RN) simvastatin (ZOCOR) tablet 40 mg 40 mg, oral, Nightly, First dose on Sun07/23/18 at 2100 2030 (Given - Provider: Sandy Will, DEANDRE) sodium chloride 0.9% flush 0.5-20 mL 0.5-20 mL, intra-catheter, Every 8 hours scheduled, First dose on Sun07/23/18 at 1400, Flush volume based on line type and size. , Indications: Flushing 1308 (Not Given - Provider: Nallely New RN - Reason: Other - Comment: iv infusing)2035 (Not Given - Provider: Sandy Will RN - Reason: Other) 0646 (Not Given - Provider: Sandy Will RN - Reason: Other)1402 (Not Given - Provider: Paty Garrison, DEANDRE - Reason: IV Infusing) Continuous Medication Order 07/22/2018 07/23/2018 07/24/2018 dextrose 5% and sodium chloride 0.45% with potassium chloride 20 mEq/L infusion (premix) 100 mL/hr, intravenous, Continuous, Starting on Sun07/23/18 at 1330, Phase I & Post-op Floor, Discontinue when tolerating clear liquid 1313 (New Bag - Provider: Nallely New, DEANDRE) Lactated Ringer's (LR) infusion (CANCELED) 30 mL/hr, intravenous, Continuous, Starting on Sun07/23/18 at 0645 0722 (New Bag - Provider: Nathaly Escobar CRNA)1052 (Anesthesia Volume Adjustment - Provider: Elle Escobar CRNA) lidocaine in dextrose 5% 2 g/250 mL (8 mg/mL) infusion (premix) (CANCELED) 2 mg/kg/hr ? 88.6 kg (22.15 mL/hr, rounded to 22.2 mL/hr), intravenous, Continuous, Starting on Sun07/23/18 at 0730, Intra-Op, Decrease infusion rate to 1 mg/kg/hr upon PACU admission and stop infusion upon PACU discharge., Indications: Ventricular Arrhythmias 0754 (New Bag - Provider: Nathaly Escobar CRNA)1029 (Rate/Dose Change - Provider: Elle Escobar CRNA) lidocaine in dextrose 5% 2 g/250 mL (8 mg/mL) infusion (premix) 1 mg/min (7.5 mL/hr), intravenous, Continuous, Starting on Sun07/23/18 at 1145, Phase I, Decrease infusion rate to 1 mg/kg/hr upon PACU admission and stop infusion upon PACU discharge., Indications: Ventricular Arrhythmias 1237 (Stopped - Provider: Baldomero Barfield RN) PRN Medication Order 07/22/2018 07/23/2018 07/24/2018 acetaminophen (TYLENOL) tablet 650 mg 650 mg, oral, Every 6 hours PRN, Pain, Starting on Sun07/23/18 at 1252, Indications: Pain bupivacaine-EPINEPHrine (MARCAINE with EPI) 0.5 %-1:200,000 preservative free injection (CANCELED) As needed, Starting on Sun07/23/18 at 1040, Intra-Op 1040 (Given - Provider: Aydin Hair MD) dextrose (D10W) 10% bolus 250 mL(Linked Group 1) 250 mL, intravenous, at 1,000 mL/hr, Administer over 15 Minutes, Every 15 min PRN, blood glucose less than 70 mg/dL and UNABLE to swallow/take PO glucose/juice., Starting on Sun07/23/18 at 1252, After treatment for hypoglycemia, recheck BG followed by treatment every 15 minutes until the BG is greater than 100 mg/dL. Then check BG 1 hour post treatment. If BG is less than 100 mg/dL, repeat Q15 minute BG checks and treatment. Call MD for each episode of hypoglycemia., Indications: hypoglycemic disorder dextrose (GLUTOSE) 40 % gel 15 g(Linked Group 1) 15 g, oral, Every 15 min PRN, low blood sugar, blood glucose less than 70 mg/dL, Starting on Sun07/23/18 at 1252, If patient is alert and able to eat/drink, give 15 gm glucose or one juice (4 fluid ounces) NOT ORANGE JUICE. After treatment for hypoglycemia, recheck BG followed by treatment every 15 minutes until the BG is greater than 100 mg/dL. Then check BG 1 hour post-treatment. If BG is less than 100 mg/dL, repeat Q15 minute BG checks and treatment. Call MD for each episode of hypoglycemia. OYSTER SHUCKER STATES GLUTOSE-15 CONTAINS GLUCOSE 40% W/W (50% W/V), Indications: hypoglycemic disorder docusate sodium (COLACE) capsule 100 mg 100 mg, oral, 2 times daily PRN, constipation, Starting on Sun07/23/18 at 1252, Indications: constipation glucagon injection 1 mg 1 mg, intramuscular, Administer over 1 Minutes, Every 30 min PRN, low blood sugar, blood glucose less than 70 mg/dL AND no IV access AND unable to take PO glucose/jiuce., Starting on Sun07/23/18 at 1252, After Glucagon is administered, position patient on side if possible to avoid aspiration. Obtain IV access. Follow glucagon treatment with glucose treatment or IV dextrose. After treatment for hypoglycemia, recheck BG followed by treatment every 15 minutes until the BG is greater than 100 mg/dL. Then check BG 1 hour post treatment. If BG is less than 100 mg/dL, repeat Q15 minute BG checks and treatment. Call MD for each episode of hypoglycemia., Indications: Hypoglycemia hydrALAZINE (APRESOLINE) injection 5 mg (CANCELED) 5 mg, intravenous, Administer over 2 Minutes, Every 15 min PRN, high blood pressure, Starting on Sun07/23/18 at 1106, For 4 doses, Phase I, Max cumulative dose 20 mg. Dose if systolic BP greater than 180 AND heart rate less than 70., Indications: hypertension 1116 (Given - Provider: Baldomero Barfield, RN) HYDROcodone-acetaminophen (NORCO) 5-325 mg per tablet 2 tablet 2 tablet, oral, 4 times daily PRN, 1st line for pain, Starting on Sun07/23/18 at 1252, May repeat in 1 hour if pain is uncontrolled or increasing. Max 2 doses within 1 dosing interval., Indications: Pain 0029 (Given - Provider: Sandy Will RN)0640 (Given - Provider: Sandy Will, DEANDRE)1649 (Given - Provider: Paty Garrison, RN)1840 (Given - Provider: Paty Garrison, RN) HYDROmorphone (DILAUDID) injection 0.4 mg (CANCELED) 0.4 mg, intravenous, Administer over 2 Minutes, Every 10 min PRN, 1st line for pain, Starting on Sun07/23/18 at 1106, For 5 doses, Phase I, Notify Anesthesiologist if total PACU dose reaches 2 mg and pain score 5/10 or more., Indications: Pain 1124 (Given - Provider: Baldomero Barfield, DEANDRE) morphine injection 2 mg 2 mg, intravenous, Administer over 4 Minutes, Every 4 hours PRN, 2nd line for pain, Starting on Sun07/23/18 at 1252, May administer 1 hour after second dose of 1st line agent for uncontrolled or increasing pain., Indications: Pain 1505 (Given - Provider: Nallely New, DEANDRE)1905 (Given - Provider: Nallely New, DEANDRE) ondansetron (ZOFRAN) injection 4 mg(Linked Group 2) 4 mg, intravenous, Administer over 2 Minutes, Every 6 hours PRN, nausea, vomiting, if not tolerating PO, Starting on Sun07/23/18 at 1252, Indications: nausea and vomiting ondansetron ODT (ZOFRAN-ODT) disintegrating tablet 4 mg(Linked Group 2) 4 mg, oral, Every 6 hours PRN, nausea, vomiting, Starting on Sun07/23/18 at 1252, Indications: nausea and vomiting sodium chloride 0.9 % irrigation (CANCELED) As needed, Starting on Sun07/23/18 at 0754, Intra-Op 0754 (Given - Provider: Aydin Hair MD - Comment: prn for laparoscopic irrigation)0755 (Given - Provider: Aydin Hair MD - Comment: prn on sterile field) sodium chloride 0.9% flush 0.5-20 mL 0.5-20 mL, intra-catheter, As needed, line care, Starting on Sun07/23/18 at 1252, Flush volume based on line type and size. Flush before and after each use. , Indications: Flushing Linked Groups Order Group 1: dextrose (GLUTOSE) 40 % gel 15 gJump to med 15 g, oral, Every 15 min PRN, low blood sugar, blood glucose less than 70 mg/dL, Starting on Sun07/23/18 at 1252, If patient is alert and able to eat/drink, give 15 gm glucose or one juice (4 fluid ounces) NOT ORANGE JUICE. After treatment for hypoglycemia, recheck BG followed by treatment every 15 minutes until the BG is greater than 100 mg/dL. Then check BG 1 hour post-treatment. If BG is less than 100 mg/dL, repeat Q15 minute BG checks and treatment. Call MD for each episode of hypoglycemia. OYSTER SHUCKER STATES GLUTOSE-15 CONTAINS GLUCOSE 40% W/W (50% W/V), Indications: hypoglycemic disorder Or dextrose (D10W) 10% bolus 250 mLJump to med 250 mL, intravenous, at 1,000 mL/hr, Administer over 15 Minutes, Every 15 min PRN, blood glucose less than 70 mg/dL and UNABLE to swallow/take PO glucose/juice., Starting on Sun07/23/18 at 1252, After treatment for hypoglycemia, recheck BG followed by treatment every 15 minutes until the BG is greater than 100 mg/dL. Then check BG 1 hour post treatment. If BG is less than 100 mg/dL, repeat Q15 minute BG checks and treatment. Call MD for each episode of hypoglycemia., Indications: hypoglycemic disorder Group 2: ondansetron ODT (ZOFRAN-ODT) disintegrating tablet 4 mgJump to med 4 mg, oral, Every 6 hours PRN, nausea, vomiting, Starting on Sun07/23/18 at 1252, Indications: nausea and vomiting Or ondansetron (ZOFRAN) injection 4 mgJump to med 4 mg, intravenous, Administer over 2 Minutes, Every 6 hours PRN, nausea, vomiting, if not tolerating PO, Starting on Sun07/23/18 at 1252, Indications: nausea and vomiting documented in this encounter Orders Medications Ordered That Ed ht Not Have Been Administered Count Last Ordered Date First Ordered Date acetaminophen (TYLENOL) tablet 650 mg 1 05/2018 albuterol (PROVENTIL,VENTOLI N) 2.5 mg /3 mL (0.083 %) nebulizer solution 2.5 mg 1 07/23/2018 bupivacaine-EPINEPHrine (MAR LI with EPI) 0.5 %-1:200,000 preservative free injection 1 07/23/2018 dextrose (D10W) 10% bolus 250 mL 2 07/24/19 19 dextrose (GLUTOSE) 40 % gel 15 g 1 07/24/19 19 diphenhydrAMINE (BENADRYL) i njection 12.5 mg 1 07/23/2018 docusate sodium (COLACE) capsule 100 mg 1 0 07/23/2018 fentaNYL (SUBLIMAZE) preserv ative free injection 25 mcg 1 07/23/2018 glucagon injection 1 mg 1 07/23/2018 haloperidol (HALDOL) injection 1 mg 1 07/23 insulin lispro (HumaLOG) inj ection 1-5 Units 1 07/23/2018 labetalol (NORMODYNE,TRANDAT E) injection 5 mg 1 07/23/2018 Lactated Ringer's (LR) infusion 9 levoFLOXacin (LEVAQUIN) 500 mg/100 mL in dextrose 5% (premix) 500 mg 2 07/23/2018 lidocaine in dextrose 5% 2 g /250 mL (8 mg/mL) infusion (premix) 2 07/23/2018 meperidine (DEMEROL) preserv ative free injection 12.5 mg 1 07/23/2018 naloxone (NARCAN) 0.4 mg/mL injection 0.04-0.4 mg 07/23/2018 ondansetron (ZOFRAN) injection 4 mg 2 07/23 ondansetron ODT (ZOFRAN-ODT) disintegrating tablet 4 mg 1 07/23/2018 oxyCODONE (ROXICODONE) tablet 5 mg 1 2018 racepinephrine (ASTHMANEFRIN ) 2.25 % nebulizer solution 0.5 mL 1 07/23/2018 sodium chloride 0.9 % irrigation 1 07/24/19 19 sodium chloride 0.9% flush 0.5-20 mL 4 05/2018 Lab Orders Without Results Count Last Ordered D ate First Ordered Date POCT GLUCOSE DEVICE 5 07/24/2018 07/24/19 19 Diet Count Last Ordered Date First Orde red Date ADULT DISCHARGE DIET 1 07/23/2018 Nursing Count Last Ordered Date First Orde red Date APPLY ABDOMINAL BINDER 1 07/23/2018 DISCHARGE ACTIVITY 4 07/23/2018 INSERT ESCAMILLA CATHETER 1 07/23/2018 OTHER FOLLOW UP 1 07/23/2018 WEIGHT RESTRICTIONS 1 07/23/2018 Admission Count Last Ordered Date First Orde red Date ASSIGN PATIENT STATUS 1 07/23/2018 documented in this encounter Care Teams Electric Stop Installer Relationship Specialty Start Date End Date Jarred Rod MD PCP - General 09/16/16 documented as of this encounter
--- OUTSIDE RECORDS SUMMARY | 2024-03-02 22:17 | XMS_ITS | Encounter Summary ---
Author Organization [facility] Healthcare Address [address] [place] [address] Care Team Providers Care Vice President & General Manager [employer] Name Role Phone Unavailable Primary Care Provider Unavailabl e Encounter Details Date Type Department Care Team (Late st Contact Info) Description 03/16/2016 10:00 AM CLIENT CONSULTANT - 03/21/2016 10:00 AM CLIENT CONSULTANT Hospital Encounter [facility] Jarred Rod MD [address] [place] [address] Low back pain; Encounter for other orthopedic aftercare Social History Tobacco Use Types Packs/Day Years Used Date Smoking Tobacco: Never Assessed Comments Unknown Sex and Gender Information Value Date Recorded Sex Assigned at Not on file Legal Sex Female 10:55 AM CLIENT CONSULTANT Gender Identity Not on file Sexual Orientation Not on file documented as of this encounter Plan of Treatment Not on file documented as of this encounter Visit Diagnoses Diagnosis Low back pain Lumbago Encounter for other orthopedic aftercare documented in this encounter
--- OUTSIDE RECORDS SUMMARY | 2024-03-02 22:17 | XMS_ITS | Encounter Summary ---
Author Organization [facility] Address [address] [place] [address] Care Team Providers Care Awning Finisher Name Role Phone Jarred Rod MD Primary Care Provider +1- [phone] Encounter Details Date Type Department Care Team (Late st Contact Info) Description 02/20/2019 Telephone [facility] Cardiology [address] [place] [address] Lio Fonseca MD [address] [place] [address] Social History Tobacco Use Types Packs/Day Years Used Date Smoking Tobacco: Never Alcohol Use Standard Drinks/Week Comments Not Currently 0 (1 standard drink = 0.6 oz pur e alcohol) Comments No Sex and Gender Information Value Date Recorded Sex Assigned at Not on file Legal Sex Female 10:55 AM STUDY LEAD Gender Identity Not on file Sexual Orientation Not on file documented as of this encounter Plan of Treatment Not on file documented as of this encounter Visit Diagnoses Not on filedocumented in this encounter Additional Health Concerns Infection Onset Date Last Indicated Resolved Time COVID19 Comment:12/15/2019 12/14/2019 12/13/2019 documented as of this encounter Care Teams Awning Finisher Relationship Specialty Start Date End Date Jarred Rod MD PCP - General 09/16/16 documented as of this encounter
--- OUTSIDE RECORDS SUMMARY | 2024-03-02 22:17 | XMS_ITS | Encounter Summary ---
Author Organization [facility] Healthcare Address [address] [place] [address] Care Team Providers Care Surgical Processor Name Role Phone Jarred Rod MD Primary Care Provider +1- [phone] Encounter Details Date Type Department Care Team (Late st Contact Info) Description 04/12/2020 10:21 AM COMPRESSED YEAST SUPERVISOR - 04/12/2020 6:02 PM [facility] Emergency [facility] Emergency Department [address] [place] [address] Unknown, Lex Feliciano MD [address] [place] [address] Discharge Disposition: Discharge to home or self care Social History Tobacco Use Types Packs/Day Years Used Date Smoking Tobacco: Never Alcohol Use Standard Drinks/Week Comments Not Currently 0 (1 standard drink = 0.6 oz pur e alcohol) Comments No Sex and Gender Information Value Date Recorded Sex Assigned at Not on file Legal Sex Female 10:55 AM COMPRESSED YEAST SUPERVISOR Gender Identity Not on file Sexual Orientation Not on file documented as of this encounter Last Filed Vital Signs Vital Sign Reading Time Taken Comments Blood Pressure 137/82 04/12/2020 10:32 AM COMPRESSED YEAST SUPERVISOR Pulse 80 04/12/2020 10:32 AM COMPRESSED YEAST SUPERVISOR Temperature 36.8 ??C (98.2 ??F) 04/12/2020 10:[address] Respiratory Rate - - Oxygen Saturation 100% 04/12/2020 10:32 AM COMPRESSED YEAST SUPERVISOR Inhaled Oxygen Concentration - - Weight 88.5 kg (195 lb) 04/12/2020 10:32 AM COMPRESSED YEAST SUPERVISOR Height 167.6 cm (5' 6 ) 04/12/2020 10:32 AM COMPRESSED YEAST SUPERVISOR Body Mass Index 31.47 04/12/2020 10:32 AM COMPRESSED YEAST SUPERVISOR documented in this encounter Medications at Time [...] tablet Take 40 mg by mouth nightly HYDROcodone-acet aminophen (NORCO) 5-325 mg per tabletIndication s:Pain Take 1-2 tablets by mouth every 4 (four) hours as needed for pain for up to 30 doses 30 tablet 07/23/2018 07/07/2020 documented as of this encounter Discharge Disposition Disposition Code Departure Means Destination Discharge to home or self care documented in this encounter Plan of Treatment Not on file documented as of this encounter Procedures Procedure Name Priority Date/Time Associated Diagnosis Comments SCAN - LABS 04/13/2020 12:00 AM COMPRESSED YEAST SUPERVISOR TROPONIN I Routine 04/12/2020 5:17 PM COMPRESSED YEAST SUPERVISOR TNI WITH LIPID PANEL Routine 04/12/2020 2:08 PM COMPRESSED YEAST SUPERVISOR CBC WITH AUTO DIFFERENTIAL Routine 04/12/2020 2:08 PM COMPRESSED YEAST SUPERVISOR CHOLESTEROL, LDL, DIRECT Routine 04/12/2020 2:08 PM COMPRESSED YEAST SUPERVISOR COMPREHENSIVE METABOLIC PANEL Routine 04/12/2020 2:08 PM COMPRESSED YEAST SUPERVISOR ECG 12-LEAD 04/12/2020 10:24 AM COMPRESSED YEAST SUPERVISOR XR CHEST 1 VIEW 04/12/2020 12:00 AM COMPRESSED YEAST SUPERVISOR documented in this encounter Results * SCAN - LABS (04/13/2020 12:00 AM COMPRESSED YEAST SUPERVISOR) Narrative 04/13/2020 12:00 AM COMPRESSED YEAST SUPERVISOR Ordered by an unspecified provider. Historical Provider MD Final Res ult * Troponin I (04/12/2020 5:17 PM COMPRESSED YEAST SUPERVISOR) Pathologist [facility] Troponin I <0.300 0.000 - 0.300 ng/mL [facility] Comment: Reference using GREGORY Chemiluminescence ? Negative: Repeat in 4-6 hours as indicated. 04/12/2020 5:17 PM COMPRESSED YEAST SUPERVISOR 04/12/2020 5:23 PM COMPRESSED YEAST SUPERVISOR Narrative Resulting Agency Comment ER Lex Lake MD LAB BLOOD ORDERABLES F inal Result Performing Organization Address [facility] Co de Phone Number [address] [phone] * Cholesterol, LDL, direct (04/12/2020 2:08 PM COMPRESSED YEAST SUPERVISOR) Pathologist [facility] LDL Cholesterol Measurd 105 0 - 129 mg/dL [facility] Comment: National Lipid Association/NCEP Guidelines: ??Optimal ? < 100 mg/dL ??Near Optimal ?100-129 mg/dL ??Borderline high 130-159 mg/dL ??High ?>=160 mg/dL 04/12/2020 2:08 PM COMPRESSED YEAST SUPERVISOR 04/12/2020 2:16 PM COMPRESSED YEAST SUPERVISOR Narrative Resulting Agency Comment ER Lex Lake MD LAB BLOOD ORDERABLES F inal Result Performing Organization Address [facility] Co de Phone Number [address] [phone] * (ABNORMAL) TNI with LIPID PANEL (04/12/2020 2:08 PM COMPRESSED YEAST SUPERVISOR) Pathologist [facility] Troponin I <0.300 0.000 - 0.300 ng/mL [facility] Comment: Reference using GREGORY Chemiluminescence ? Negative: Repeat in 4-6 hours as indicated. Triglycerides 326(H) 0 - 149 mg/dL [facility] Comment: LDL(measured) to follow due to Triglycerides >250 mg/dL. National Lipid Association/NCEP Guidelines: ?? Normal ?< 150 mg/dL ?? Borderline high ?? 150-199 mg/dL ?? High ?200-499 mg/dL ?? Very High ? >=500 mg/dL Cholesterol 194 0 - 199 mg/dL [facility] Comment: National Lipid Association/NCEP Guidelines: Desirable ? < 200 mg/dL Borderline high: ??200-239 mg/dL High Risk: ?>=240 mg/dL HDL Cholesterol 41 mg/dL [facility] Comment: Reference Ranges: ? Males: >=40 mg/dL ? Females: >=50 mg/dL Cholesterol/HDL Ratio 4.7 [facility] Comment: Optimal ??< 3.5:1 High ? > 5:1 04/12/2020 2:08 PM COMPRESSED YEAST SUPERVISOR 04/12/2020 2:16 PM COMPRESSED YEAST SUPERVISOR Narrative Resulting Agency Comment ER us Lex Lake MD LAB BLOOD ORDERABLES F inal Result [facility] [address] [phone] * (ABNORMAL) Comprehensive metabolic panel (04/12/2020 2:08 PM COMPRESSED YEAST SUPERVISOR) [facility] Sodium 137 135 - 145 mmol/L [facility] Potassium 4.0 3.3 - 5.1 mmol/L [facility] Chloride 99 96 - 108 mmol/L [facility] Carbon Dioxide 30 22 - 32 mmol/L [facility] Anion Gap 8 7 - 16 [facility] Glucose 197(H) 70 - 100 mg/dL [facility] BUN 26(H) 8 - 25 mg/dL [facility] Creatinine 1.0 0.5 - 1.1 mg/dL [facility] Comment: NOTE: Estimated GFR (Cockroft-Gault) will NOT be calculated unless patient Height and Weight were entered. Also, Kidney Disease Stage (GFR) and Estimated GFR (Cockroft-Gault) will NOT be calculated if Creatinine result is <0.2. Kidney Disease Stage 76 mL/MIN [facility] Comment: NOTE; ??The GFR is an estimated value using the creatinine, sex, age, and race of the patient. THE Estimated Kidney Disease GFR is validated for AGES 18-70 YEARS STAGE ?mL/Min ?DESCRIPTION ??1 ?90 mL/min or more ?Normal or elevated GFR ??2 ? 60-89 mL/min ?Mildly decreased GFR ??3 ? 30-59 mL/min ?Moderately decreased GFR ??4 ? 15-29 mL/min ?Severely decreased GFR ??5 ? <15 mL/min ? Kidney failure or on dialysis Est GFR (Cockcroft-G) 76 ml/MIN [facility] Comment: Estimated GFR(Cockroft-Gault)is used to calculate patient medication dosage Calcium 9.6 8.6 - 10.3 mg/dL [facility] Total Protein 8.5(H) 6.4 - 8.3 g/dL [facility] Albumin 4.3 3.5 - 5.0 g/dL [facility] Globulin 4.2(H) 2.3 - 3.5 gm/dL [facility] Albumin/Globulin Ratio 1.0(L) 1.1 - 1.8 [facility] Total Bilirubin 0.3 0.0 - 1.2 mg/dL [facility] AST 18 0 - 32 U/L [facility] ALT 30 0 - 33 U/L [facility] Alkaline Phosphatase 146(H) 35 - 104 U/L [facility] 04/12/2020 2:08 PM COMPRESSED YEAST SUPERVISOR 04/12/2020 2:16 PM COMPRESSED YEAST SUPERVISOR Narrative Resulting Agency Comment ER us Lxe Lake MD LAB BLOOD ORDERABLES E dited Result - Final [facility] [address] [place] [address], [facility] [phone] * (ABNORMAL) CBC with auto differential (04/12/2020 2:08 PM COMPRESSED YEAST SUPERVISOR) WBC 11.2(H) 3.8 - 9.9 X10 3/ul [facility] RBC 3.61(L) 3.90 - 5.20 x10 6/ul [facility] Hemoglobin 11.0(L) 11.9 - 15.5 g/dL [facility] Hct 32.8(L) 35.6 - 45.5 % [facility] MCV 90.9 81.3 - 96.4 fl [facility] MCH 30.5 27.1 - 33.3 pg [facility] MCHC 33.5 32.3 - 35.7 g/dl [facility] RDW 13.0 11.1 - 14.9 % [facility] Plt Count 290 150 - 400 x10 3/ul [facility] MPV 11.1 9.1 - 12.3 fl [facility] Neut % 61.5 % [facility] Immature Gran % 0.3 % [facility] Lymph % 31.8 % [facility] Petroleum % 5.3 % [facility] Eos % 0.6 % [facility] E AST [facility] AUTO BASO % 0.5 % [facility] NEUTROPHIL ABS # 6.9(H) 1.7 - 6.5 x10 3/ul [facility] Immature Gran # 0.0 0.0 - 0.1 x10 3/ul [facility] Absolute Lymphs (auto) 3.6(H) 0.8 - 3.3 x10 3/ul [facility] Absolute Monos (auto) 0.6 0.2 - 0.8 x10 3/ul [facility] Absolute Eos (auto) 0.1 0.0 - 0.5 x10 3/ul [facility] BASOPHIL ABS # 0.1 0.0 - 0.1 x10 3/ul [facility] Nucleat RBC Rel Count 0.0 #/100WBC [facility] NRBC abs 0.00 0.00 - 0.01 x10 3/ul [facility] Absolute Neutrophils 6,900 200 - 8,000 /ul [facility] 04/12/2020 2:08 PM COMPRESSED YEAST SUPERVISOR 04/12/2020 2:16 PM COMPRESSED YEAST SUPERVISOR Narrative Resulting Agency Comment ER us Lex Lake MD LAB BLOOD ORDERABLES F inal Result [facility] [address] [place] [address], [facility] [phone] * ECG 12 lead (04/12/2020 10:24 AM COMPRESSED YEAST SUPERVISOR) Ventricular Rate EKG/Min 81 BPM [facility] Atrial Rate 81 BPM [facility] IA-Interval (MSEC) 196 ms [facility] QRS-Interval (MSEC) 82 ms [facility] QT-Interval (MSEC) 376 ms [facility] QTc 436 ms [facility] P [place] 53 degrees [facility] R [place] 24 degrees [facility] T [place] 16 degrees [facility] Diagnosis Normal sinus rhythm Nonspecific ST abnormality Abnormal ECG When compared with ECG of 14-DEC-2019 16:43, No significant change was found [facility] 04/12/2020 10:2 4 AM COMPRESSED YEAST SUPERVISOR 04/12/2020 12:33 PM COMPRESSED YEAST SUPERVISOR Narrative Resulting Agency Comment PREADT us Lex Lake MD ECG ORDERABLES Final Result [facility] * XR Chest 1 View (04/12/2020 12:00 AM COMPRESSED YEAST SUPERVISOR) Anatomical Region Laterality Modality Body, Chest N/A Radiographic Shelli ging 04/12/2020 11:1 7 AM COMPRESSED YEAST SUPERVISOR Narrative 04/12/2020 11:20 AM COMPRESSED YEAST SUPERVISOR Patient Name: LENA YOUNGBLOOD ?Ordering Dr: Lex Lake MD ?? D.O.B: 1970 ? Exam Date: 04/12/20 ?? 0000 ?? Age: 50 ?Sex: Female ? MR#: [id number] ?? Loc: ? RADIOLOGY REPORT ?? Order #[id number] ?? Radiology ? Chest 1 View Portable ? Signed ? EXAM DESCRIPTION: ?? Chest 1 View Portable ? REASON FOR STUDY: ?? LEFT SIDED CHEST PAIN COMING DOWN LEFT ARM AND INTO JAW ?? FOR 2.5 WEEKS ? TECHNIQUE: ?? Frontal radiographic view of the chest acquired at 11:10 a.m.. ? COMPARISON: ?? Chest radiograph dated 12/14/2019 and 09/14/2015. ? FINDINGS: ? LUNGS/PLEURA: ??No focal pneumonic consolidation, pleural effusion or ?? pneumothorax. ??Increased density along the right perihilar region and left ?? hilar region is similar when compared to the previous radiograph of 09/14/2015 ?? and likely reflects pulmonary vessels. ? HEART/MEDIASTINUM: ??The heart is not enlarged. ? HARDWARE/LINES/TUBES: ??None. ? BONES: ??Without acute interval change. ? OTHER: ??No other significant finding. ? IMPRESSION: ?? No acute cardiopulmonary disease. ? THIS IS AN ELECTRONICALLY VERIFIED FINAL REPORT ?? 04/12/2020 11:20 AM - Electronically signed by Erasto Hammonds D.O. ?? Erasto Hammonds D.O. ? AP: AP ?? D: ??04/12/2020 11:20 AM ?? T: ??04/12/2020 11:20 AM ? Report ID: [id number] ?? Reading Location: ??[id number] ? REPORT ELECTRONICALLY SIGNED IN OTHER VENDOR SYSTEM ?? Resulting Agency Comment P Procedure Note Erasto Hammonds DO - 04/12/2020 Patient Name: FORDLENA Dr: Lex Lake MD D.O.B: 1970 Exam Date: 04/12/20 0000 Age: 50 Sex: Female MR#: [id number] Loc: RADIOLOGY REPORT Order #[id number] Radiology Chest 1 View Portable Signed EXAM DESCRIPTION: Chest 1 View Portable REASON FOR STUDY: LEFT SIDED CHEST PAIN COMING DOWN LEFT ARM AND INTOJAW FOR 2.5 WEEKS TECHNIQUE: Frontal radiographic view of the chest acquired at 11:10a.m.. COMPARISON: Chest radiograph dated 12/14/2019 and 09/14/2015. FINDINGS: LUNGS/PLEURA: No focal pneumonic consolidation, pleural effusion or pneumothorax. Increased density along the right perihilar region andleft hilar region is similar when compared to the previous radiograph of09/14/2015 and likely reflects pulmonary vessels. HEART/MEDIASTINUM: The heart is not enlarged. HARDWARE/LINES/TUBES: None. BONES: Without acute interval change. OTHER: No other significant finding. IMPRESSION: No acute cardiopulmonary disease. THIS IS AN ELECTRONICALLY VERIFIED FINAL REPORT 04/12/2020 11:20 AM - Electronically signed by Erasto Hammonds D.O. AP: AP Report ID: [id number] Reading Location: [place] [address] REPORT ELECTRONICALLY SIGNED IN OTHER VENDOR SYSTEM Lex Lake MD IMG XR PROCEDURES Katheryn l Result documented in this encounter Visit Diagnoses Not on filedocumented in this encounter Additional Health Concerns Infection Onset Date Last Indicated Resolved Time COVID19 Comment:12/15/2019 12/14/2019 12/13/2019 documented as of this encounter Care Teams Surgical Processor Relationship Specialty Start Date End Date Jarred Rod MD PCP - General 09/16/16 documented as of this encounter
--- OUTSIDE RECORDS SUMMARY | 2024-03-02 22:17 | XMS_ITS | Encounter Summary ---
Author Organization [facility] Healthcare Address [address] [place] [address] Care Team Providers Care Area Field Manager Name Role Phone Jarred Rod MD Primary Care Provider +1- [phone] Encounter Details Date Type Department Care Team (Late st Contact Info) Description 07/01/2018 Telephone [facility] Operating Room [facility] [place] [address] Sunshine Baldwin Social History Tobacco Use Types Packs/Day Years Used Date Smoking Tobacco: Never Comments Unknown Sex and Gender Information Value Date Recorded Sex Assigned at Not on file Legal Sex Female 10:55 AM ASSISTANT FINANCIAL ACCOUNTANT Gender Identity Not on file Sexual Orientation Not on file documented as of this encounter Plan of Treatment Not on file documented as of this encounter Visit Diagnoses Not on filedocumented in this encounter Care Teams Area Field Manager Relationship Specialty Start Date End Date Jarred Rod MD PCP - General 09/16/16 documented as of this encounter
--- OUTSIDE RECORDS SUMMARY | 2024-03-02 22:17 | XMS_ITS | Encounter Summary ---
Author Organization [facility] Address [address] [facility] [address] [place] [id number] Care Team Providers Care Disk Recordist Name Role Phone Jarred Rod MD Primary Care Provider [phone] Reason for Referral * Diagnostic Imaging (Routine) - Closed Specialty Diagnoses / Procedures Referred By Contac t Referred To Contact Diagnoses Chest pain, unspecified type BRISCOE (dyspnea on exertion) Type 2 diabetes mellitus with other specified complication, with long-term current use of insulin ([facility]) Procedures NM MPI SPECT (Rest and/or Stress) Multiple Studies Lio Moreno MD [address] [address] Phone: tel: fax: [facility] Referral ID Status Reason Start Date Expiration Date Visits Re quested Visits Authorized [id number] Closed 02/11/2019 03/28/2019 1 1 R COACH CHAUFFEUR * Cardiology (Routine) - Closed Specialty Diagnoses / Procedures Referred By Contac t Referred To Contact Diagnoses Chest pain, unspecified type Essential hypertension BRISCOE (dyspnea on exertion) Procedures Transthoracic Echo Complete W Doppler/CF Lio Moreno MD [address] [facility] [address] [place] [address] Phone: tel: fax: [facility] Referral ID Status Reason Start Date Expiration Date Visits Re quested Visits Authorized [id number] Closed 01/22/2019 08/02/2020 1 1 R COACH CHAUFFEUR Reason for Visit * Reason Comments New Patient CP * Consultation (Routine) - Closed Specialty Diagnoses / Procedures Referred By Contac t Referred To Contact Cardiology Diagnoses Chest pain, unspecified type Jarred Rod MD [address] [place] [id number] Phone: tel: fax: [facility] [address] [place] [address] Phone: tel: fax: Referral ID Status Reason Start Date Expiration Date V isits Requested Visits Authorized [id number] Closed Specialty Services Required 01/09/2019 07/20/2020 1 1 Encounter Details Date Type Department Care Team (Late st Contact Info) Description 01/22/2019 11:15 AM MOTOR COACH CHAUFFEUR Office Visit [facility] [address] [place] [phone] Lio Moreno MD [address] [place] [address] Chest pain, unspecified type (Primary Dx); Essential hypertension; Dyslipidemia; BRISCOE (dyspnea on exertion); Type 2 diabetes mellitus with other specified complication, with long-term current use of insulin ([facility]) Social History Tobacco Use Types Packs/Day Years Used Date Smoking Tobacco: Never Tobacco Cessation:Counseling Given: Yes Alcohol Use Standard Drinks/Week Comments Not Currently 0 (1 standard drink = 0.6 oz pur e alcohol) Comments No Sex and Gender Information Value Date Recorded Sex Assigned at Not on file Legal Sex Female 10:55 AM MOTOR COACH CHAUFFEUR Gender Identity Not on file Sexual Orientation Not on file documented as of this encounter Last Filed Vital Signs Vital Sign Reading Time Taken Comments Blood Pressure 120/84 01/22/2019 11:32 AM MOTOR COACH CHAUFFEUR Pulse 86 01/22/2019 11:32 AM MOTOR COACH CHAUFFEUR Temperature - - Respiratory Rate - - Oxygen Saturation 96% 01/22/2019 11: 32 AM MOTOR COACH CHAUFFEUR Inhaled Oxygen Concentration - - Weight 87.9 kg (193 lb 11.2 oz) 019 11:32 AM MOTOR COACH CHAUFFEUR Height 167.6 cm (5' 6 ) 01/22/2019 11:3 2 AM MOTOR COACH CHAUFFEUR Body Mass Index 31.26 01/22/2019 11:32 AM MOTOR COACH CHAUFFEUR documented in this encounter Ordered Prescriptions Prescription Sig Dispense Quantity Refills Last Filled Start Date End Date aspirin 81 mg enteric coated tablet Take 1 tablet (81 mg total) by mouth daily 30 tablet 11 01/22/2019 documented in this encounter Progress Notes * Lio Moreno MD - 01/22/2019 11:15 AM CST [facility] 01/22/2019 CHIEF COMPLAINT Chief Complaint Patient presents with ??? New Patient CP Chest pain, off and on for approximately 1 month HPI Lena Youngblood is a 48 y.o. female with past medical history of hypertension, dyslipidemia, type 2diabetes mellitus on insulin, obesity. 01/22/2019 initial evaluation-patient is here for cardiovascular evaluation. She is accompanied by her . She reports that she has been experiencing intermittent episodes of chest discomfort for approximately 1 1 month with recent worsening. She describes her chest pain as sharp sensation in the left upper anterior chest with occasional radiation to the left arm and the left neck, which is worse occasionally with movement of the left shoulder area. Her symptoms are not always related to exertion. She states that her activity is somewhat limited due to left foot pain. Her symptoms last for few minutes. She also reports dyspnea on moderate exertion. Denies palpitation, dizziness or syncope. She denies any prior cardiac history including clinical DE, angina, heart failure or any significant arrhythmias in the past. Patient states that she was diagnosed with diabetes mellitus several years ago, and has been on insulin. Patient is a nonsmoker, denies alcohol or illicit drugs. She is on disability due to chronic left foot pain. MEDICAL HISTORY she has a past medical history of Hypercholesteremia (07/11/2018), Hypertension (07/11/2018), Nephrolithiasis (07/11/2018), and Type 2 diabetes mellitus (CMS/HCC) (07/11/2018). she has a past surgical history that includes IR Fluid Aspiration (N/A, 05/10/2012); Laparoscopic pyeloplasty (04/2012); Cystoscopy w/ ureteral stent placement (2012); Hysterectomy (2004); Toe amputation (Left); and Eye surgery. she Allergies Allergen Reactions ??? Amoxicillin Rash ??? Penicillins Rash Occurred within 24 hours Current Outpatient Medications Medication Sig Dispense Refill ??? dulaglutide (TRULICITY) 1.5 mg/0.5 mL pen injector Inject 1.5 mg under the skin every 7 days ??? HYDROcodone-acetaminophen (NORCO) 5-325 mg per tablet Take 1-2 tablets by mouth every 4 (four) hours as needed for pain for up to 30 doses 30 tablet 0 ??? insulin lispro protamin-insulin lispro (HumaLOG 75/25) [...] Take 40 mg by mouth nightly ??? aspirin 81 mg enteric coated tablet Take 1 tablet (81 mg total) by mouth daily 30 tablet 11 No current facility-administered medications for this visit. she family history includes Heart attack in her father and mother; Stroke in her sister. she reports that she has never smoked. She does not have any smokeless tobacco history on file. Shereports previous alcohol use. She reports previous drug use. REVIEW OF SYSTEMS General ROS: negative for - Fever, chills, fatigue Psychological ROS: negative for - anxiety, depression Ophthalmic ROS: negative for - loss of vision ENT ROS: negative for - sore throat, epistaxis, headaches, nasal congestion Allergy and Immunology ROS: negative for - hives, postnasal drip or seasonal allergies Hematological and Lymphatic ROS: negative for - overt bleeding problems, bruising Respiratory ROS: negative for - cough, hemoptysis, wheezing Cardiovascular ROS: Positive for chest pain, shortness of breath Gastrointestinal ROS: negative for - abdominal pain, blood in stools, hematemesis, nausea/vomiting Endocrine ROS: negative for - hot flashes, polydipsia/polyuria Genito-Urinary ROS: negative for - dysuria, hematuria Musculoskeletal ROS chronic left foot pain Neurological ROS: negative for - gait disturbance, weakness Dermatological ROS: negative for pruritus, rash LABS AND OTHER DIAGNOSTIC TESTS REVIEWED Lab Results Component Value Date WBC 9.2 07/11/2018 HGB 12.6 07/11/2018 HCT 37.9 07/11/2018 MCV 90.9 07/11/2018 No lab exists for component: LABALBU Lab Results Component Value Date WBC 9.2 07/11/2018 HGB 12.6 07/11/2018 HCT 37.9 07/11/2018 MCV 90.9 07/11/2018 Lab Results Component Value Date CHOL 218 (H) 03/07/2014 CHOL 217 (H) 10/07/2013 Lab Results Component Value Date HDL 38 (L) 03/07/2014 HDL 36 (L) 10/07/2013 No results found for: LDL] Lab Results Component Value Date TRIG 663 (H) 03/07/2014 TRIG 446 (H) 10/07/2013 Lipid panel-total cholesterol 202, HDL 44, triglycerides 271, LDL 103. 01/22/2019 EKG-sinus rhythm, voltage criteria for LVH, prolonged QTC 560 milliseconds. 01/22/2019 PHYSICAL EXAM Vitals BP 120/84 (BP Location: Left arm, Patient Position: Sitting) Pulse 86 Ht 167.6 cm (5' 6 ) Wt 87.9 kg (193 lb 11.2 oz) SpO2 96% BMI 31.26 kg/m?? General appearance - alert, no distress, oriented to time, place, person Mental status - affect appropriate to mood Eyes - extraocular eye movements intact, no pallor Ears - external ears appear normal, hearing grossly normal Nose - normal and patent, no discharge Mouth - mucous membranes moist, tongue normal Neck - supple, carotids upstroke normal bilaterally, no bruits, no JVD Chest - clear to auscultation Heart - normal rate, regular rhythm, normal S1, S2, systolic murmur Abdomen - soft, nontender, nondistended, bowel sounds present Neurological - alert, oriented, normal speech, no gross motor deficits Musculoskeletal - no major deformity, no amputations Extremities - no pedal edema, no clubbing or cyanosis Skin - no rashes (on the exposed areas), no cyanosis ASSESSMENT Diagnoses and all orders for this visit: Chest pain, unspecified type (Primary) - Ambulatory referral to Cardiology - Transthoracic Echo Complete W Doppler/CF; Future - NM MPI SPECT (Rest and/or Stress) Multiple Studies; Future Essential hypertension - Transthoracic Echo Complete W Doppler/CF; Future Dyslipidemia - POCT lipid panel BRISCOE (dyspnea on exertion) - Transthoracic Echo Complete W Doppler/CF; Future - NM MPI SPECT (Rest and/or Stress) Multiple Studies; Future Type 2 diabetes mellitus with other specified complication, with long-term current use of insulin (CMS/HCC) - NM MPI SPECT (Rest and/or Stress) Multiple Studies; Future Other orders - aspirin 81 mg enteric coated tablet; Take 1 tablet (81 mg total) by mouth daily PLAN/RECOMMENDATIONS 48-year-old female with past medical history of hypertension, dyslipidemia, type 2diabetes mellitus on insulin, obesity. - patient has been experiencing episodes of left-sided chest pain for approximately 1 month, features somewhat mixed for ischemia. She also has dyspnea on exertion. Patient has longstanding history of type 2 diabetes mellitus, and is currently on insulin. Her EKG shows sinus rhythm, voltage criteria for LVH. - in light of patient's symptoms and coronary risk factors, will proceed with pharmacological MPI to evaluate for any significant myocardial ischemia. Patient is unable to walk on the treadmill due to left foot pain. An echocardiogram with Doppler will also be performed to assess LV function and rule out any structural heart disease. - patient's blood pressure is reasonably controlled at present, continue current antihypertensives.Continue statin. Add low-dose aspirin regimen for now. - follow-up in approximately 6 weeks or sooner if needed, based on above results of above testing. Lio Moreno MD 01/22/19 Voice recognition software was used to complete this document, therefore, telecommunications manager variances may occur. R COACH CHAUFFEUR documented in this encounter Plan of Treatment Not on file documented as of this encounter Procedures Procedure Name Priority Date/Time Associated Diagnosis Comments POCT LIPID PANEL Routine 01/22/2019 12:5 6 PM MOTOR COACH CHAUFFEUR Dyslipidemia documented in this encounter Results * TRANSTHORACIC ECHO (TTE) COMPLETE W DOPPLER/CF W CONTRAST (03/06/2019 8:57 AM MOTOR COACH CHAUFFEUR) Anatomical Region Laterality Modality Ultrasound 03/06/2019 7:51 AM MOTOR COACH CHAUFFEUR Narrative 03/06/2019 6:44 PM MOTOR COACH CHAUFFEUR [facility] Cardiology [address], [place] [address] [address] [facility] [address], [place] [address] P:[phone] P:[phone] Echocardiographic Report Patient Name: LENA YOUNGBLOOD : 1970 Study Date: 03/06/2019 7:51:19 AM Gender: F Tech: Location: [place] Ref.Provider: PRADEEP Height(Cm): 168 BSA: 1.97 Weight(Kg): 87.54 Heart Rate: 87 BP: 159/102 Quality: Definity contrast agent used to enhance endocardial border definition Order Provider: LIO MORENO Procedures: Echocardiographic Report: Transthoracic echocardiogram with complete 2D, M-Mode, color Doppler examination and Definity contrast. Indications: Chest Pain, and Hypertension. Measurements: 2D/M Mode Doppler Measurement Value Normal Range Measurement Value Normal Range EF Mod 70 ??AV Mean PG 3 mmHg EF MM 65 [ 55 - 70 ] % AV Peak Nadir 1.22 m/s LVIDd 2D 4.28 [ 3.90 - 5.30 ] cm AV Peak PG 6 mmHg LVIDd MM 5.07 [ 3.90 - 5.30 ] cm AV VTI 0.21 cm LVIDs 2D 2.21 [ 2.30 - 3.90 ] cm LVOT Peak Nadir 0.94 [ 0.70 - 1.10 ] m/s LVIDs MM 3.27 [ 2.30 - 3.90 ] cm LVOT VTI 0.20 cm LVPWd 2D 0.67 [ 0.60 - 1.00 ] cm MV E Peak Nadir 0.58 [ 0.60 - 1.30 ] m/s LVPWd MM 0.73 [ 0.60 - 1.00 ] cm MV A Peak Nadir 1.08 [ 0.40 - 0.80 ] m/s IVSd 2D 0.91 [ 0.60 - 0.90 ] cm MV Decel Time 111 [ 150 - 200 ] msec IVSd MM 0.73 [ 0.60 - 0.90 ] cm PV Peak Nadir 0.70 [ 0.40 - 0.80 ] m/s LA Dimension MM 2.67 [ 2.70 - 3.80 ] cm E' 0.07 AoR Diam MM 3.40 [ 2.60 - 3.70 ] cm E/E' 7 LA Volume Index 17.00 [ 16.00 - 28.00 ] cc/m2 ACS MM 2.13 cm Findings: Interpretation Site: Exam was interpreted at [facility]. Left Ventricle: Normal left ventricular systolic function. No focal wall motion abnormalities. Normal left ventricular size. Definity contrast agent used to visually enhance endocardial wall motion and contractility. Lot Number: [id number]. Normal left ventricular diastolic function. Ejection fraction is measured at 70 %. Right Ventricle: Normal right ventricular size. Normal right ventricular systolic function. Left Atrium: The left atrium is normal in size. Right Atrium: The right atrium is normal in size. Atrial Septum: Normal atrial septum. Mitral Valve: Normal appearance of the mitral valve. Aortic Valve: Normal appearance of the aortic valve. Tricuspid Valve: Normal appearance of the tricuspid valve. Trivial regurgitation in the tricuspid valve. Pulmonic Valve: Normal appearance of the pulmonic valve. Pericardium: Normal pericardium with no significant pericardial effusion. Aorta: Normal aortic root. IVC: Normal size and normal respiratory collapse consistent with normal right atrial pressure (<5 mmHg). Conclusions: Normal appearance of the tricuspid valve. Trivial regurgitation in the tricuspid valve(within normal physiologic limits ). Otherwise normal study. Electronically Signed By: Carroll Pérez MD, [facility] 2019-03-06 18:44:27 MOTOR COACH CHAUFFEUR Procedure Note Carroll Pérez MD - 03/06/2019 [facility] Cardiology [address] [facility] [address] [id number] [address] [facility] [address] [place] [address] P:[phone] P:[phone] Echocardiographic Report Patient Name: LENA YOUNGBLOOD : 1970 Study Date: 03/06/2019 7:51:19 AM Gender: F Tech: Location: [place] Ref.Provider: PRADEEP Height(Cm): 168 BSA: 1.97 Weight(Kg): 87.54 Heart Rate: 87 BP: 159/102 Quality: Definity contrast agent used to enhance endocardial borderdefinition Order Provider: LIO MORENO Procedures: Echocardiographic Report: Transthoracic echocardiogram with complete 2D, M-Mode, color Dopplerexamination and Definity contrast. Indications: Chest Pain, and Hypertension. Measurements: 2D/M Mode Doppler Measurement Value Normal Range Measurement Value Normal Range EF Mod 70 AV Mean PG 3 mmHg EF MM 65 [ 55 - 70 ] % AV Peak Nadir 1.22 m/s LVIDd 2D 4.28 [ 3.90 - 5.30 ] cm AV Peak PG 6 mmHg LVIDd MM 5.07 [ 3.90 - 5.30 ] cm AV VTI 0.21 cm LVIDs 2D 2.21 [ 2.30 - 3.90 ] cm LVOT Peak Nadir 0.94 [ 0.70 - 1.10 ] m/s LVIDs MM 3.27 [ 2.30 - 3.90 ] cm LVOT VTI 0.20 cm LVPWd 2D 0.67 [ 0.60 - 1.00 ] cm MV E Peak Nadir 0.58 [ 0.60 - 1.30 ] m/s LVPWd MM 0.73 [ 0.60 - 1.00 ] cm MV A Peak Nadir 1.08 [ 0.40 - 0.80 ] m/s IVSd 2D 0.91 [ 0.60 - 0.90 ] cm MV Decel Time 111 [ 150 - 200 ] msec IVSd MM 0.73 [ 0.60 - 0.90 ] cm PV Peak Nadir 0.70 [ 0.40 - 0.80 ] m/s LA Dimension MM 2.67 [ 2.70 - 3.80 ] cm E' 0.07 AoR Diam MM 3.40 [ 2.60 - 3.70 ] cm E/E' 7 LA Volume Index 17.00 [ 16.00 - 28.00 ] cc/m2 ACS MM 2.13 cm Findings: Interpretation Site: Exam was interpreted at [facility]. Left Ventricle: Normal left ventricular systolic function. No focal wall motionabnormalities. Normal left ventricular size. Definity contrast agent used to visually enhanceendocardial wall motion and contractility. Lot Number: [id number]. Normal left ventriculardiastolic function. Ejection fraction is measured at 70 %. Right Ventricle: Normal right ventricular size. Normal right ventricular systolicfunction. Left Atrium: The left atrium is normal in size. Right Atrium: The right atrium is normal in size. Atrial Septum: Normal atrial septum. Mitral Valve: Normal appearance of the mitral valve. Aortic Valve: Normal appearance of the aortic valve. Tricuspid Valve: Normal appearance of the tricuspid valve. Trivial regurgitation in thetricuspid valve. Pulmonic Valve: Normal appearance of the pulmonic valve. Pericardium: Normal pericardium with no significant pericardial effusion. Aorta: Normal aortic root. IVC: Normal size and normal respiratory collapse consistent with normal rightatrial pressure (<5 mmHg). Conclusions: Normal appearance of the tricuspid valve. Trivial regurgitation in thetricuspid valve(within normal physiologic limits ). Otherwise normal study. Electronically Signed By: Carroll Pérez MD, [facility] 2019-03-06 18:44:27 MOTOR COACH CHAUFFEUR us Lio Moreno MD CV ECHO PROCEDURES Final Result * NM MPI SPECT (Rest and/or Stress) Multiple Studies (02/20/2019 11:17 AM MOTOR COACH CHAUFFEUR) Anatomical Region Laterality Modality Body N/A Nuclear Medicine 02/20/2019 9:21 AM MOTOR COACH CHAUFFEUR Narrative 02/20/2019 5:25 PM MOTOR COACH CHAUFFEUR [facility] Cardiology [address] [facility] [address] [address] [address] [facility] [address] [address] P:[phone] P:[phone] MPI Imaging Report Patient Name: LENA YOUNGBLOOD K : 1970 Study Date: 02/20/2019 9:21:36 AM Gender: F Tech: [facility] Location: [place] Ref.Physician: LIO MORENO Height(Cm): 167.6 BSA: ??Weight(Kg): 87.9 BMI: 31.29 Order Physician: LIO MORENO Physician: Referring Physician: Dr. Rod. HCG Physician: Lio Moreno M.D., F.A.C.C. Interpreting Physician: Thuan Barney M.D. Stress Supervision: Carroll Pérez M.D.,F.A.C.C. Procedures: Myocardial perfusion imaging with Tc99M Sestamibi SPECT at rest and stress post regadenoson (Lexiscan) infusion. Indications: Chest Pain, Hypertension, Diabetes, Family Hx CAD, High Cholesterol, and BRISCOE. Findings: Procedural Findings: One day rest/stress was used. Tc99m Sestamibi injected IV at rest was 10.2 millicuries. 33.4 millicuries of Tc99M Sestamibi injected IV during Lexiscan stress. Lexiscan 0.4mg administered IV over 10 seconds. Pharmacologic stress related symptoms and/or side effects during infusion include shortness of breath, abdominal cramping. Symptoms were resolved with completion of Lexiscan protocol. Baseline heart rate was 80 BPM. Maximum Heart Rate Achieved was: 103 BPM. Baseline blood pressure was 128/84 mmHg. Post Stress Blood Pressure was 116/80 mmHg. Termination: Protocol complete. Resting ECG: Normal sinus rhythm. Nonspecific T wave abnormality. Post ECG: No diagnostic ST changes. Perfusion Findings: Abnormal perfusion imaging - see below. Technical quality of study is good. Prone imaging was performed. Left ventricle cavity size at rest is normal. Left ventricle cavity size with stress is unchanged. A TID of 0.73 was automatically calculated. defect 1: Size is medium. Severity is mild to moderate in intensity. Location of defect is in the mid anterior segment, mid anteroseptal segment, apical anterior segment and apical lateral segment. Reversibility is partial. Type of defect is most likely attenuation artifact. Artifact noted from breast attenuation. Improved with prone imaging. LV Function: Global left ventricular function is normal. Left ventricular ejection fraction is 63 %. Conclusions: Normal sinus rhythm. Nonspecific T wave abnormality. No diagnostic ST changes. Global left ventricular function is normal. Left ventricular ejection fraction is 63 %. Probably normal myocardial perfusion imaging. Anterior and anterolateral defects are seen which partially normalize with prone imaging. This likely represents breast attenuation artifact. Electronically Signed By: Carroll Pérez MD, [facility] 2019-02-20 17:11:33 MOTOR COACH CHAUFFEUR Electronically Signed By: Lex Barney MD 2019-02-20 17:25:47 MOTOR COACH CHAUFFEUR CC: CC: Procedure Note Lex Barney MD - 02/20/2019 [facility] Cardiology [address] [facility] [address], [place] [address] [address] [facility] [address], [place] [address] P:[phone] P:[phone] MPI Imaging Report Patient Name: LENA YOUNGBLOOD K : 1970 Study Date: 02/20/2019 9:21:36 AM Gender: F Tech: [facility] Location: [place] Ref.Physician: LIO MORENO Height(Cm): 167.6 BSA: Weight(Kg): 87.9 BMI: 31.29 Order Physician: LIO MORENO Physician: Referring Physician: Dr. Rod. HCG Physician: Lio Moreno M.D., F.A.C.C. Interpreting Physician: Thuan Barney M.D. Stress Supervision: Carroll Pérez M.D.,F.A.C.C. Procedures: Myocardial perfusion imaging with Tc99M Sestamibi SPECT at rest and stresspost regadenoson (Lexiscan) infusion. Indications: Chest Pain, Hypertension, Diabetes, Family Hx CAD, High Cholesterol, andDOE. Findings: Procedural Findings: One day rest/stress was used. Tc99m Sestamibi injected IV at rest was 10.2millicuries. 33.4 millicuries of Tc99M Sestamibi injected IV during Lexiscan stress.Lexiscan 0.4mg administered IV over 10 seconds. Pharmacologic stress related symptomsand/or side effects during infusion include shortness of breath, abdominal cramping.Symptoms were resolved with completion of Lexiscan protocol. Baseline heart rate was 80BPM. Maximum Heart Rate Achieved was: 103 BPM. Baseline blood pressure was 128/84 mmHg.Post Stress Blood Pressure was 116/80 mmHg. Termination: Protocol complete. Resting ECG: Normal sinus rhythm. Nonspecific T wave abnormality. Post ECG: No diagnostic ST changes. Perfusion Findings: Abnormal perfusion imaging - see below. Technical quality of study isgood. Prone imaging was performed. Left ventricle cavity size at rest is normal. Leftventricle cavity size with stress is unchanged. A TID of 0.73 was automatically calculated. defect 1: Size is medium. Severity is mild to moderate in intensity. Location ofdefect is in the mid anterior segment, mid anteroseptal segment, apical anterior segmentand apical lateral segment. Reversibility is partial. Type of defect is most likelyattenuation artifact. Artifact noted from breast attenuation. Improved with proneimaging. LV Function: Global left ventricular function is normal. Left ventricular ejectionfraction is 63 %. Conclusions: Normal sinus rhythm. Nonspecific T wave abnormality. No diagnostic ST changes. Global left ventricular function is normal. Left ventricular ejectionfraction is 63 %. Probably normal myocardial perfusion imaging. Anterior and anterolateraldefects are seen which partially normalize with prone imaging. This likely representsbreast attenuation artifact. Electronically Signed By: Carroll Pérez MD, [facility] 2019-02-20 17:11:33 MOTOR COACH CHAUFFEUR Electronically Signed By: Lex Barney MD 2019-02-20 17:25:47 MOTOR COACH CHAUFFEUR CC: CC: Lio Moreno MD IMG NM PROCEDURES Final Result * POCT lipid panel (01/22/2019 12:56 PM MOTOR COACH CHAUFFEUR) Cholesterol, POC 202 mg/dL HDL, POC 44 mg/dL Triglycerides, POC 271 mg/dL LDL Cholesterol POC 103 mg/dL Chol/HDL Ratio, POC 4.6 Non-HDL Cholesterol, POC 158 mg/dL Cholesterol Total, POC 202 mg/dL Blood specimen (specimen) 01/22/2019 12:56 PM MOTOR COACH CHAUFFEUR Lio Moreno MD POINT OF CARE TEST ORDERABLES Fi nal Result documented in this encounter Visit Diagnoses Diagnosis Chest pain, unspecified type- Primary Essential hypertension Unspecified essential hypertension Dyslipidemia Other and unspecified hyperlipidemia BRISCOE (dyspnea on exertion) Other dyspnea and respiratory abnormality Type 2 diabetes mellitus with other specified complication, with long-term current use of insulin (HCC) Chest pain, unspecified type BRISCOE (dyspnea on exertion) Other dyspnea and respiratory abnormality Type 2 diabetes mellitus with other specified complication, with long-term current use of insulin (HCC) Chest pain, unspecified type Essential hypertension Unspecified essential hypertension BRISCOE (dyspnea on exertion) Other dyspnea and respiratory abnormality documented in this encounter Discontinued Medications Medication Sig Discontinue Reason Start Date End Da te levoFLOXacin (LEVAQUIN) 500 mg tablet Take 0.5 tablets (250 mg total) by mouth daily Therapy completed 07/23/2018 01/22/2019 documented as of this encounter Orders Outpatient Referral Count Last Ordered Date Fir st Ordered Date AMB REFERRAL TO CARDIOLOGY 1 01/22/2019 documented in this encounter Care Teams Disk Recordist Relationship Specialty Start Date End Date Jarred Rod MD PCP - General 09/16/16 documented as of this encounter
--- OUTSIDE RECORDS SUMMARY | 2024-03-02 22:17 | XMS_ITS | Encounter Summary ---
Author Organization [facility] Healthcare Address [address] [place] [address] Care Team Providers Care Ruby On Rails Engineer Name Role Phone Juan Luevano MD Primary Care Provider [phone] Juan Luevano MD Primary Care Provider [phone] Encounter Details Date Type Department Care Team (Late st Contact Info) Description 07/21/2016 11:00 AM CDT - 08/18/2016 11:00 AM CDT Hospital Encounter [facility] OP Jarred Rod MD [address] [place] [address] [phone] Low back pain; Encounter for other orthopedic aftercare Social History Tobacco Use Types Packs/Day Years Used Date Smoking Tobacco: Never Comments Unknown Sex and Gender Information Value Date Recorded Sex Assigned at Not on file 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
--- OUTSIDE RECORDS SUMMARY | 2024-03-02 22:17 | XMS_ITS | Encounter Summary ---
Author Organization [facility] Address [address] [place] [address] Care Team Providers Care Strawhat Sizer Name Role Phone Jarred Rod MD Primary Care Provider [phone] Encounter Details Date Type Department Care Team (Late st Contact Info) Description 03/07/2019 Telephone [facility] Cardiology [address] [place] [address] Lio Fonseca MD [employer] [address] Social History Tobacco Use Types Packs/Day Years Used Date Smoking Tobacco: Never Alcohol Use Standard Drinks/Week Comments Not Currently 0 (1 standard drink = 0.6 oz pur e alcohol) Comments No Sex and Gender Information Value Date Recorded Sex Assigned at Not on file Legal Sex Female 10:55 AM INVESTIGATION SPECIALIST Gender Identity Not on file Sexual Orientation Not on file documented as of this encounter Miscellaneous Notes * Telephone Encounter - Tracie Hernández RN - 03/07/2019 10:51 AM INVESTIGATION SPECIALIST I called the patient back. Left a voicemail message stating, normal study . STIGATION SPECIALIST * Telephone Encounter - Ester Sanches - 03/07/2019 10:45 AM CST Pt called to request results on her TTE done yesterday. cb [phone] STIGATION SPECIALIST documented in this encounter Plan of Treatment Not on file documented as of this encounter Visit Diagnoses Not on filedocumented in this encounter Care Teams Strawhat Sizer Relationship Specialty Start Date End Date Jarred Rod MD PCP - General 09/16/16 documented as of this encounter
--- OUTSIDE RECORDS SUMMARY | 2024-03-02 22:17 | XMS_ITS | Encounter Summary ---
Author Organization 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
--- OUTSIDE RECORDS SUMMARY | 2024-03-02 22:17 | XMS_ITS | Encounter Summary ---
Author Organization [facility] Address [address] [place] [address] Care Team Providers Care Supervisor Carbon Paper Coating Name Role Phone Jarred Rod MD Primary Care Provider [phone] Reason for Visit * Diagnostic Imaging (Routine) - Closed Specialty Diagnoses / Procedures Referred By Contac t Referred To Contact Diagnoses Chest pain, unspecified type BRISCOE (dyspnea on exertion) Type 2 diabetes mellitus with other specified complication, with long-term current use of insulin ([facility]) Procedures NM MPI SPECT (Rest and/or Stress) Multiple Studies Ervin Moreno MD [address] [address] Phone: tel: fax: [facility] Referral ID Status Reason Start Date Expiration Date Visits Re quested Visits Authorized [id number] Closed 02/11/2019 03/28/2019 1 1 Encounter Details Date Type Department Care Team (Latest Contact Info) Description 02/20/2019 9:15 AM BUSINESS REPRESENTATIVE Ancillary Procedure [facility] Cardiology [address] [address] [place] [address] Chest pain, unspecified type; BRISCOE (dyspnea on exertion); Type 2 diabetes mellitus with other specified complication, with long-term current use of insulin ([facility]) Social History Tobacco Use Types Packs/Day Years Used Date Smoking Tobacco: Never Alcohol Use Standard Drinks/Week Comments Not Currently 0 (1 standard drink = 0.6 oz pur e alcohol) Comments No Sex and Gender Information Value Date Recorded Sex Assigned at Not on file Legal Sex Female 10:55 AM BUSINESS REPRESENTATIVE Gender Identity Not on file Sexual Orientation Not on file documented as of this encounter Plan of Treatment Not on file documented as of this encounter Procedures Procedure Name Priority Date/Time Associated Diagnosis Comments NM MPI SPECT (REST AND/OR STRESS) MULTIPLE STUDIES Schedule Routine, Read Routine (OP Routine) 02/20/2019 11:17 AM BUSINESS REPRESENTATIVE Chest pain, unspecified type BRISCOE (dyspnea on exertion) Type 2 diabetes mellitus with other specified complication, with long-term current use of insulin ([facility]) documented in this encounter Results * NM MPI SPECT (Rest and/or Stress) Multiple Studies (02/20/2019 11:17 AM BUSINESS REPRESENTATIVE) Anatomical Region Laterality Modality Body N/A Nuclear Medicine 02/20/2019 9:21 AM BUSINESS REPRESENTATIVE Narrative 02/20/2019 5:25 PM BUSINESS REPRESENTATIVE [facility] Cardiology [address], [place] [address] [address] [facility] [address], [place] [address] P:[phone] P:[phone] MPI Imaging Report Patient Name: LENA YOUNGBLOOD K : 1970 Study Date: 02/20/2019 9:21:36 AM Gender: F Tech: [facility] Location: [place] Ref.Physician: ERVIN MORENO Height(Cm): 167.6 BSA: ??Weight(Kg): 87.9 BMI: 31.29 Order Physician: ERVIN MORENO Physician: Referring Physician: Dr. Rod. HCG Physician: Ervin Moreno M.D., F.A.C.C. Interpreting Physician: Thuan Barney [...] artifact. Electronically Signed By: Carroll Pérez MD, [facility] 2019-02-20 17:11:33 BUSINESS REPRESENTATIVE Electronically Signed By: Lex Barney MD 2019-02-20 17:25:47 BUSINESS REPRESENTATIVE CC: CC: Procedure Note Lex Barney MD - 02/20/2019 [facility] Cardiology [address], [place] [address] [address] [facility] [address], [place] [address] P:[phone] P:[phone] MPI Imaging Report Patient Name: LENA YOUNGBLOOD K : 1970 Study Date: 02/20/2019 9:21:36 AM Gender: F Tech: [facility] Location: [facility].Physician: ERVIN MORENO Height(Cm): 167.6 BSA: Weight(Kg): 87.9 BMI: 31.29 Order Physician: ERVIN MORENO Physician: Referring Physician: Dr. Rod. HCG Physician: Ervin Moreno M.D., F.A.CBelemCBelem Interpreting Physician: Thuan Barney M.D. Stress Supervision: [...] artifact. Electronically Signed By: Carroll Pérez MD, [facility] 2019-02-20 17:11:33 BUSINESS REPRESENTATIVE Electronically Signed By: Lex Barney MD 2019-02-20 17:25:47 BUSINESS REPRESENTATIVE CC: CC: Ervin Moreno MD IM NM PROCEDURES Final Result documented in this encounter Visit Diagnoses Diagnosis Chest pain, unspecified type BRISCOE (dyspnea on exertion) Other dyspnea and respiratory abnormality Type 2 diabetes mellitus with other specified complication, with long-term current use of insulin ([facility]) documented in this encounter Administered Medications Inactive Administered Medications - up to 3 most recent administrations Medication Order MAR Action Action Date Dose Rate Site regadenoson (LEXISCAN) 0.4 mg/5 mL injection 0.4 mg 0.4 mg, intravenous, Once, On Viky 02/20/19 at 1200, For 1 dose, Administer IV push over 10 seconds., Indications: Myocardial Perfusion Imaging AdjunctIndications:Myocard ial Perfusion Imaging Adjunct Given 02/20/2019 11:17 AM BUSINESS REPRESENTATIVE 0.4 mg tc-99m sestamibi unit dose injection 10.2 millicurie 10.2 millicurie, intravenous, Once in imaging, radiopharmaceutical, Starting on Viky 02/20/19 at 0848, For 1 dose, Indications: Diagnostic RadiographyIndications:Cuca gnostic Radiography Given 02/20/2019 8:48 AM BUSINESS REPRESENTATIVE 10.2 millicuries tc-99m sestamibi unit dose injection 33.4 millicurie 33.4 millicurie, intravenous, Once in imaging, radiopharmaceutical, Starting on Viky 02/20/19 at 1117, For 1 dose, Indications: Diagnostic RadiographyIndications:Cuca gnostic Radiography Given 02/20/2019 11:17 AM BUSINESS REPRESENTATIVE 33.4 millicuries documented in this encounter Care Teams Supervisor Carbon Paper Coating Relationship Specialty Start Date End Date Jarred Rod MD PCP - General 09/16/16 documented as of this encounter
--- OUTSIDE RECORDS SUMMARY | 2024-03-02 22:17 | XMS_ITS | Encounter Summary ---
Author Organization [facility] Address [address] [place] [address] Care Team Providers Care Bleach Maker Name Role Phone Jarred Rod MD Primary Care Provider [phone]- [phone] Reason for Referral * MRI/CAT/PET Scan (Routine) - Closed Specialty Diagnoses / Procedures Referred By Contac t Referred To Contact Radiology Diagnoses Chest pain, unspecified type Hypertension, unspecified type Procedures CT Heart Morphology And Coronary Arteries W Contrast Lio Fonseca MD [address] [facility] [address] [place] [address] Phone: tel: fax: [address] [address] Referral ID Status Reason Start Date Expiration Date Visits Re quested Visits Authorized [id number] Closed 07/20/2020 08/19/2021 1 1 Encounter Details Date Type Department Care Team (Late st Contact Info) Description 07/20/[address] 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 She is now aware that she is NOT having her cardiac cath tomorrow. Explained to pt that she is able to have the cardiac CTA instead based on her insurance. Pt is agreeable. Will call and schedule CTA for pt. Called Cynthia to schedule CTA. Pt called and informed that CTA is scheduled for July 27 at 0840am.Pt is having another CT the day before so she was wondering if that would be an issue. Gave pt Cynthia' phone number to call and reschedule if needed. Pre-CTA instructions given to pt. Verbalized understanding. * Telephone Encounter - Xenia Deal RN - 07/21/2020 8:58 AM CDT Attempted to reach pt again. No answer. * Telephone Encounter - Xenia Deal RN - 07/20/2020 3:09 PM CDT Order for CTA placed. LMOV requesting pt to return call to discuss. * Telephone Encounter - Araceli Gonzalez - 07/20/2020 12:58 PM CDT Received this email from Annabelle - She did a peer to peer to try to obtain a prior auth for a [facility] this pt of Dr. Santana. I did the [id number] for Ms. Lena Mcneal. It was NOT approved for [facility] but they would approve coronary CTA. Because Dr. Fonseca???s note mentioned that he would offer either one to her, I told the reviewing physician to change the order to coronary CTA and he gave me an authorization number of [id number], expires 09/03/20. Will you please let the staff know? Thank you. documented in this encounter Plan of Treatment Not on file documented as of this encounter Results * CT Heart Morphology And Coronary Arteries W Contrast (07/27/2020 9:42 AM CDT) Anatomical Region Laterality Modality Chest N/A Computed Tomogra phy 07/27/2020 11:1 2 AM CDT Impressions 07/27/2020 12:56 PM CDT 1. Left dominant coronary system with no anomalous origin or course. 2. ??No atherosclerosis within the right or the left coronary system. 3. ??Normal size and systolic function of the left ventricle. 4. Calculated calcium score is 0. Dictated by: Hayley Lomas M.D. The radiology attending physician has personally reviewed this study, and had reviewed and/or edited this written report and agrees with it. Electronically signed by: Keisha Cole M.D. Narrative 07/27/2020 12:56 PM CDT EXAMINATION: CORONARY CT ANGIOGRAM HISTORY: Chest pain. ??Evaluate for coronary artery disease. TECHNIQUE: CT angiography of the coronary arteries was performed after the administration of 100 mL of Optiray 350. Images were also obtained precontrast for the purposes of calcium scoring. ??20 mg of metoprolol was administered intravenously prior to the examination. The patient's heart rate at the time of the examination were 80 beats per minute. Images were transferred to a 3D workstation for additional post-processing. FINDINGS: The coronary arteries are left system dominant. There is no anomalous coronary origin or course. Right coronary system: The right coronary artery system is nondominant with diminutive right coronary artery which is widely patent. ??The right coronary artery terminates as an acute marginal branch. Left coronary system: The left main coronary artery is normal with no atherosclerotic stenosis. ??Left main coronary artery divides into the left anterior descending artery, ramus intermedius, and left circumflex coronary artery. The left anterior descending artery, ramus intermedius, and circumflex coronary artery are patent show no atherosclerosis. ??There is a small distal diagonal artery which is also free of disease. The calculated calcium score is 0. Left ventricular size and function is normal with no focal wall motion abnormality. ??There is hypertrophied and sigmoid shaped basal interventricular septum which can be seen in the setting of long-standing systemic hypertension. Other findings: Esophagus is patulous and fluid-filled which can be seen in the setting of esophageal reflux. ??Included lung bases are unremarkable. Procedure Note Keisha Cole MD - 07/27/2020 EXAMINATION: CORONARY CT ANGIOGRAM HISTORY: Chest pain. Evaluate for coronary artery disease. TECHNIQUE: CT angiography of the coronary arteries was performed after the administration of 100 mL of Optiray 350. Images were also obtained precontrast for the purposes of calcium scoring. 20 mg of metoprolol was administered intravenously prior to the examination. The patient's heart rate at the time of the examination were 80 beats per minute. Images were transferred to a 3D workstation for additional post-processing. FINDINGS: The coronary arteries are left system dominant. There is no anomalous coronary origin or course. Right coronary system: The right coronary artery system is nondominant with diminutive right coronary artery which is widely patent. The right coronary artery terminates as an acute marginal branch. Left coronary system: The left main coronary artery is normal with no atherosclerotic stenosis. Left main coronary artery divides into the left anterior descending artery, ramus intermedius, and left circumflex coronary artery. The left anterior descending artery, ramus intermedius, and circumflex coronary artery are patent show no atherosclerosis. There is a small distal diagonal artery which is also free of disease. The calculated calcium score is 0. Left ventricular size and function is normal with no focal wall motion abnormality. There is hypertrophied and sigmoid shaped basal interventricular septum which can be seen in the setting of long-standing systemic hypertension. Other findings: Esophagus is patulous and fluid-filled which can be seen in the setting of esophageal reflux. Included lung bases are unremarkable. IMPRESSION: 1. Left dominant coronary system with no anomalous origin or course. 2. No atherosclerosis within the right or the left coronary system. 3. Normal size and systolic function of the left ventricle. 4. Calculated calcium score is 0. Dictated by: Hayley Lomas M.D. The radiology attending physician has personally reviewed this study, and had reviewed and/or edited this written report and agrees with it. Electronically signed by: Keisha Cole M.D. Lio Fonseca MD IMG CT PROCEDURES Final Result documented in this encounter Visit Diagnoses Diagnosis Chest pain, unspecified type- Primary Hypertension, unspecified type Chest pain, unspecified type Hypertension, unspecified type documented in this encounter Additional Health Concerns Infection Onset Date Last Indicated Resolved Time COVID19 Comment:12/15/2019 12/14/2019 12/13/2019 documented as of this encounter Care Teams Bleach Maker Relationship Specialty Start Date End Date Jarred Rod MD PCP - General 09/16/16 documented as of this encounter
--- OUTSIDE RECORDS SUMMARY | 2024-03-02 22:17 | XMS_ITS | Encounter Summary ---
Author Organization [facility] Healthcare Address [address] [place] [address] Care Team Providers Care Scraper Operator Name Role Phone Jarred Rod MD Primary Care Provider [phone]- [phone] Reason for Referral * (Routine) - Closed Specialty Diagnoses / Procedures Referred By Lyla chaney Referred To Contact Diagnoses Pre-op evaluation Procedures ECG 12 lead Ekta Koroma NP Phone: tel: fax: [facility] [address] [place] [address] Referral ID Status Reason Start Date Expiration Date Visits Re quested Visits Authorized [id number] Closed 07/11/2018 01/20/2020 1 1 Reason for Visit * (Routine) - Closed Specialty Diagnoses / Procedures Referred By Lyla chaney Referred To Contact Diagnoses Pre-op evaluation Procedures ECG 12 lead Ekta Koroma NP Phone: tel: fax: [facility] [address] [place] [address] Referral ID Status Reason Start Date Expiration Date Visits Re quested Visits Authorized [id number] Closed 07/11/2018 01/20/2020 1 1 Encounter Details Date Type Department Care Team (Latest Contact Info) Description 07/11/2018 11:28 AM CDT - 07/11/2018 11:59 PM CDT Hospital Encounter [facility] Cardiac Testing [address] [facility] [address] [place] [address] [place] [address] [place] [address] Ekta Koroma NP [facility] [address] [place], [place] [id number] Pre-op evaluation Discharge Disposition: Discharge to home or self care Social History Tobacco Use Types Packs/Day Years Used Date Smoking Tobacco: Never Alcohol Use Standard Drinks/Week Comments Not Currently 0 (1 standard drink = 0.6 oz pur e alcohol) Comments Unknown Sex and Gender Information Value Date Recorded Sex Assigned at Not on file 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 Sex 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 Gender Identity Not on file Sexual Orientation [...] 07/23/2018 01/22/2019 documented as of this encounter Discharge Disposition Disposition Code Departure Means Destination Discharge to home or self care documented in this encounter Plan of Treatment Not on file documented as of this encounter Procedures Procedure Name Priority Date/Time Associated Diagnosis Comments ECG 12-LEAD Routine 07/11/2018 1:13 PM CDT Pre-op evaluation documented in this encounter Results * ECG 12 lead (07/11/2018 1:13 PM CDT) 07/11/2018 11:3 3 AM CDT Narrative [facility] - 07/12/2018 8:50 AM CDT Vent Rate: 77 bpm RR Interval: 774 msec OR Interval: 204 msec QRS Duration: 81 msec QT Interval: 402 msec QTC Interval: 434 msec P-R-T [place]: 52 - 15 - 29 degrees SINUS RHYTHM MINIMAL VOLTAGE CRITERIA FOR LVH, CONSIDER NORMAL VARIANT NONSPECIFIC T-WAVE ABNORMALITY BORDERLINE ECG Electronically Signed By: Carroll Szymanski MD us Ekta Koroma BOILER CLEANER ECG ORDERABLES Final Result [facility] documented in this encounter Visit Diagnoses Diagnosis Pre-op evaluation documented in this encounter Care Teams Scraper Operator Relationship Specialty Start Date End Date Jarred Rod MD PCP - General 09/16/16 documented as of this encounter
--- OUTSIDE RECORDS SUMMARY | 2024-03-02 22:17 | XMS_ITS | Encounter Summary ---
Author Organization [facility] Healthcare Address [address] [place] [address] Care Team Providers Care Sales And Merchandising Associate Name Role Phone Unavailable Primary Care Provider Unavailabl e Encounter Details Date Type Department Care Team (Latest Contact Info) Description 07/07/2015 3:18 PM CDT - 07/07/2015 5:39 PM CDT Hospital Encounter [facility] ER Sanchez Vasquez MD [address] [facility] [address] Otalgia of right ear; Other acute postprocedural pain; Other specified postprocedural state; Other conjunctivitis; Essential (primary) hypertension; Hyperlipidemia; Type 2 diabetes mellitus without complications (CMS/HCC); 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 (CMS/HCC); Other terminal supervisor (current) drug therapy Social History Tobacco Use Types Packs/Day Years Used Date Smoking Tobacco: Never Assessed Comments Unknown Sex and Gender Information Value Date Recorded Sex Assigned at Not on file Legal Sex Female 10:55 AM AUTOMOTIVE TIRE 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 Gender Identity Not on file Sexual Orientation Not on file documented as of this encounter Last Filed Vital Signs Vital Sign Reading Time Taken Comments Blood Pressure 103/45 07/07/2015 3:21 PM CDT Pulse 77 07/07/2015 3:21 PM CDT Temperature 37.1 ??C (98.7 ??F) 07/07/2015 3:21 PM CD T Respiratory Rate - - Oxygen Saturation 99% 07/07/2015 3:21 PM CDT Inhaled Oxygen Concentration - - Weight 88.9 kg (196 lb) 07/07/2015 3:21 PM CDT Height 167.6 cm (5' 6 ) 07/07/2015 3:21 PM CDT Body Mass Index 31.64 07/07/2015 3:21 PM CDT documented in this encounter Plan of Treatment Not on file documented as of this encounter Visit Diagnoses Diagnosis Otalgia of right ear Other acute postprocedural pain Other specified postprocedural state Other conjunctivitis Essential (primary) hypertension Unspecified essential hypertension Hyperlipidemia Other and unspecified hyperlipidemia Type 2 diabetes mellitus without complications (CMS/HCC) (HCC) 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
--- OUTSIDE RECORDS SUMMARY | 2024-03-02 22:17 | XMS_ITS | Encounter Summary ---
Author Organization [facility] Healthcare Address [address] [place] [address] Care Team Providers Care Cosmetic Sales Consultant Name Role Phone Jarred Rod MD Primary Care Provider +1- [phone] Encounter Details Date Type Department Care Team (Late st Contact Info) Description 07/23/2018 7:30 AM CDT - 07/23/2018 11:00 AM CDT Surgery [facility] Operating Room [address] [place] [address] [place] [address] [address] Robotic Assisted Sacrocolpopexy, Cystoscopy Surgery Details Date/Time Status Location OR Service Patient Class Case Cl ass Case Type Trauma Case? 07/23/2018 7:30 AM Posted [facility] OPERATING ROOM OR17w Urology Outpatient in Bed Elective Panel 1 Procedure LRB Anes Op Region Wound Class Comments Robotic Assisted Sacrocolpopexy, Cystoscopy N/A General Pelvis Class II - Clean Contaminated ( 07/18) Rep. confirmed Surgeon Surgeon Role Service Panel Aydin Hair MD Primary Urology 1 documented in this encounter Social History Tobacco Use Types Packs/Day Years Used Date Smoking Tobacco: Never Alcohol Use Standard Drinks/Week Comments Not Currently 0 (1 standard drink = 0.6 oz pur e alcohol) Comments No Sex and Gender Information Value Date Recorded Sex Assigned at Not on file Legal Sex Female 10:55 AM ENDOSCOPY RN Gender Identity Not on file Sexual Orientation Not on file documented as of this encounter Last Filed Vital Signs Vital Sign Reading Time Taken Comments Blood Pressure 182/94 07/23/2018 11:00 AM CDT Pulse 86 07/23/2018 11:00 AM CDT Temperature 37 ??C (98.6 ??F) 07/23/2018 11:00 AM CDT Respiratory Rate 10 07/23/2018 11:00 AM CDT Oxygen Saturation 100% 07/23/2018 11:00 AM CDT Inhaled Oxygen Concentration - - Weight 88.6 kg (195 lb 5.2 oz) 07/23/2018 6:32 A M CDT Height - - Body Mass Index 31.53 07/23/2018 6:32 AM [...] this am. Pain is well controlled with [place]. [place] removed this a. Ambulating. Denies any [...] Nightly, Aydin Hair MD, 3 Units at 07/23/182033 ? insulin lispro (HumaLOG) injection 1-5 Units, 1-5 Units, subcutaneous, TID with meals, Aydin Hair MD, 2 Units at 07/24/1830 ? ketorolac (TORADOL) 15 mg/mL injection 15 [...] 0.5-20 mL, 0.5-20 mL, intra-catheter, Q8H SARAH, Aydin Hair MD ? sodium chloride 0.9% flush [...] Laboratory: Recent Labs Lab Units 07/24/18 0629 07/23/18 2034 07/23/18 1716 POC GLUCOSE MONITOR mg/dL 177* [...] poor vision to left eye ??? HYSTERECTOMY 2005 ??? LAPAROSCOPIC PYELOPLASTY 04/2012 ??? TOE AMPUTATION [...] Pain controlled with scheduled Toradol and PRN [place]. No complaints of nausea at this time. [...] the standard fashion with a 8 mm hair assistant port in the right upper quadrant. Careful [...] then introduced. Using a series of 2-0 [place] sutures, the mesh was affixed anteriorly and [...] the anterior longitudinal ligament with 2 interrupted [place] sutures. I then used a 2-0 Monocryl [...] MD - Primary Anesthesiologist: Kenan Burgess MD LEATHER BELT MAKER: Elle Escobar CRNA; Funmi Foley CRNA Carding Machine Feeder: Milka Morales RN Carding Machine Feeder Relief: Alma Ugarte RN Scrub: [facility] SPORTS MEDICINE SPECIALIST: Amarilis Rankin RN; Melissa Rhodes RN Orientee Carding Machine Feeder: Lindsay Lazar RN DATE OF SURGERY : 07/23/2018 Preoperative Diagnosis: Pre-op Diagnosis * Cervical stump prolapse [N81.85] Postoperative Diagnosis: Post-op Diagnosis * Cervical stump prolapse [N81.85] Procedure(s): Procedure(s) (LRB): Robotic Assisted Sacrocolpopexy, Cystoscopy (N/A) Operative Findings: Estimated Blood Loss: 0 mL Intraoperative Fluids: mls Specimens: No specimen collected in procedure Implants: Implant Name Type Inv. Item Serial No. Soaker Helper Lot No. [id number] No. Used iDevices [id number] UPSYLON 35.4CM ELONGATION PROFILE LIGHTWEIGHT LARGE PORE LOW - [id number] [employer] [id number] Upsylon 35.4cm Elongation Profile Lightweight Large Pore Low Zase Adelita [id number] N/A 1 Blood/Blood Products Transfused: mls Complications: [...] (ABNORMAL) POCT glucose (07/24/2018 5:05 PM CDT) Glucose, POC 206(H) 70 - 140 mg/dL [facility] Comment: For Glucose values <35 mg/dl when Hematocrit is >60 mg/dl,the test may not accurately detect significant hypoglycemia,and testing in the Laboratory should be considered if clinically indicated. Blood specimen (specimen) 07/24/2018 5:05 PM CDT 07/24/2018 5:05 PM CDT Narrative [facility] - 07/24/2018 5:07 PM CDT Aydin Hair MD LAB POCT ORDERABLES - D EVICE Final Result Performing Organization Address [facility] Co de Phone Number [facility] [address] [place] [place] [address] * (ABNORMAL) POCT glucose (07/24/2018 11:03 AM CDT) Glucose, POC 221(H) 70 - 140 mg/dL [facility] Comment: For Glucose values <35 mg/dl when Hematocrit is >60 mg/dl,the test may not accurately detect significant hypoglycemia,and testing in the Laboratory should be considered if clinically indicated. Blood specimen (specimen) 07/24/2018 11:03 AM CDT 07/24/2018 11:03 AM CDT Narrative [facility] - 07/24/2018 11:05 AM CDT Aydin Hair MD LAB POCT ORDERABLES - D EVICE Final Result Performing Organization Address City/[facility]/ZIP Co de Phone Number [facility] [address] Department [employer] [place] [address] * (ABNORMAL) POCT glucose (07/24/2018 6:29 AM CDT) Glucose, POC 177(H) 70 - 140 mg/dL [facility] Comment: For Glucose values <35 mg/dl when Hematocrit is >60 mg/dl,the test may not accurately detect significant hypoglycemia,and testing in the Laboratory should be considered if clinically indicated. Blood specimen (specimen) 07/24/2018 6:29 AM CDT 07/24/2018 6:29 AM CDT [facility] - 07/24/2018 6:32 AM CDT Aydin Hair MD LAB POCT ORDERABLES - D EVICE Final Result Performing Organization Address [facility] Co de Phone Number [facility] [address] [employer] [place], [place] [id number] * (ABNORMAL) POCT glucose (07/23/2018 8:34 PM CDT) Glucose, POC 274(H) 70 - 140 mg/dL [facility] Comment: For Glucose values <35 mg/dl when Hematocrit is >60 mg/dl,the test may not accurately detect significant hypoglycemia,and testing in the Laboratory should be considered if clinically indicated. Blood specimen (specimen) 07/23/2018 8:34 PM CDT 07/23/2018 8:34 PM CDT [facility] - 07/23/2018 8:35 PM CDT Aydin Hair MD LAB POCT ORDERABLES - D EVICE Final Result Performing Organization Address City/[facility]/ZIP Co de Phone Number [facility] [address] [employer] [place], [place] [phone] * (ABNORMAL) POCT glucose (07/23/2018 5:16 PM CDT) Glucose, POC 223(H) 70 - 140 mg/dL [facility] Comment: For Glucose values <35 mg/dl when Hematocrit is >60 mg/dl,the test may not accurately detect significant hypoglycemia,and testing in the Laboratory should be considered if clinically indicated. Blood specimen (specimen) 07/23/2018 5:16 PM CDT 07/23/2018 5:16 PM CDT Narrative [facility] - 07/23/2018 5:20 PM CDT Aydin Hair MD LAB POCT ORDERABLES - D EVICE Final Result Performing Organization Address [facility] Co de Phone Number [facility] [address] [place] [address] * POCT glucose (07/23/2018 11:06 AM CDT) [employer] Signature Glucose, POC 108 70 - 140 mg/dL [facility] Comment: For Glucose values <35 mg/dl when Hematocrit is >60 mg/dl,the test may not accurately detect significant hypoglycemia,and testing in the Laboratory should be considered if clinically indicated. Blood specimen (specimen) 07/23/2018 11:06 AM CDT 07/23/2018 11:06 AM CDT Narrative [facility] - 07/23/2018 11:07 AM CDT Aydin Hair MD LAB POCT ORDERABLES - D EVICE Final Result Performing Organization Address [facility] Co de Phone Number [facility] [address] [place] [employer] [place] [address] * POCT hCG, urine (07/23/2018 6:48 AM CDT) HCG, ur, POC Negative Lot Number [id number] QC Backgroud Clear Acceptable QC Control Line Acceptable Urine 07/23/2018 6:48 AM CDT Aydin Hair MD POINT OF CARE TEST ORDE RABLES Final Result * POCT glucose (07/23/2018 6:24 AM CDT) [facility] Glucose, POC 98 70 - 140 mg/dL [facility] Comment: For Glucose values <35 mg/dl when Hematocrit is >60 mg/dl,the test may not accurately detect significant hypoglycemia,and testing in the Laboratory should be considered if clinically indicated. Blood specimen (specimen) 07/23/2018 6:24 AM CDT 07/23/2018 6:24 AM CDT Narrative [facility] - 07/23/2018 6:28 AM CDT Aydin Hair MD LAB POCT ORDERABLES - D EVICE Final Result Performing Organization Address [facility]/ZIP Co de Phone Number [facility] [address] [place] [employer] [address] * Check Sample (07/23/2018 6:15 AM CDT) [facility] ABO Rh B Positive [facility] HCLL OTHER 07/23/2018 6:15 AM CDT 07/23/2018 6:21 AM CDT Narrative [facility] - 07/23/2018 6:55 AM CDT Aydin Hair MD LAB BLOOD ORDERABLES Fi nal Result Performing Organization Address [facility] Co de Phone Number [facility] [address] [employer] [place] [address] documented in this encounter Visit Diagnoses Diagnosis Cervical stump prolapse documented in this encounter Administered Medications Inactive Administered Medications - up to 3 most recent administrations Medication Order MAR Action Action Date Dose Rate Site acetaminophen (TYLENOL) tablet 1,000 mg 1,000 mg, oral, Once, On Sun07/23/18 at 0645, For 1 dose, Pre-Op, Indications: Pre-Emptive AnalgesiaIndications:P re-Emptive Analgesia Given 07/23/2018 6:47 AM CDT 1,000 mg bupivacaine-EPINEPHrin e (MARCAINE with EPI) 0.5 %-1:200,000 preservative free injection As needed, Starting on Sun07/23/18 at 1040, Intra-Op Given 07/23/2018 10:40 AM CDT 14 mL Surgical Site dextrose (D10W) 10% bolus 250 mL 250 [...] Call MD for each episode of hypoglycemia. COMMERCIAL INSTALLER STATES GLUTOSE-15 CONTAINS GLUCOSE 40% W/W (50% [...] Given 07/23/2018 8:31 PM CDT 40 mg sodium chloride 0.9 % irrigation As needed, Starting on Sun07/23/18 at 0754, Intra-Op Given 07/23/2018 7:55 AM CDT 1,000 mL Surgical Site Given 07/23/2018 7:54 AM CDT 1,000 mL Azar rgical Site documented in this encounter Active and Recently [...] Sandy Will RN)1103 (Given - Provider: Paty Garrison, DEANDRE)1706 (Given - Provider: Paty Garrison RN) ketorolac (TORADOL) 15 mg/mL injection 15 mg 15 mg, intravenous, Every 6 hours scheduled, First dose on Sun07/23/18 at 1330, For 3 days, Indications: Pain 1313 (Given - Provider: Nallely New, RN)1717 (Given - Provider: Nallely New RN) 0023 (Given - Provider: Sandy Will, DEANDRE)0620 (Given - Provider: Sandy Will RN)1104 (Given [...] Sandy Will RN)0855 (Stopped - Provider: Paty Garrison RN) lisinopril (PRINIVIL,ZESTRIL) tablet 40 mg 40 mg, oral, Nightly, First dose on Sun07/23/18 at 2100 2030 (Given - Provider: Sandy Will, DEANDRE) metoprolol (LOPRESSOR) tablet 50 mg 50 mg, oral, 2 times daily, First dose on Sun07/23/18 at 1330 1313 (Given - Provider: Nallely New, DEANDRE)2031 (Given - Provider: Sandy Will, DEANDRE) 0857 (Given - Provider: Paty Garrison RN) ondansetron (ZOFRAN) injection 4 mg (COMPLETED) 4 mg, intravenous, Administer over 2 Minutes, Once, On Sun07/23/18 at 0645, For 1 dose, Pre-Op, Indications: Prevention of Post-Operative Nausea and Vomiting 0729 (Given - Provider: Aidan Shetty RN) simvastatin (ZOCOR) tablet 40 mg 40 mg, oral, Nightly, First dose on Sun07/23/18 at 2100 2030 (Given - Provider: Sandy Will RN) sodium chloride 0.9% flush 0.5-20 mL 0.5-20 mL, intra-catheter, Every 8 hours scheduled, First dose on Sun07/23/18 at 1400, Flush volume based on line type and size. , Indications: Flushing 1308 (Not Given - Provider: Nallely New RN - Reason: Other - Comment: iv infusing)2036 (Not Given - Provider: Sandy Will RN - Reason: Other) 0646 (Not Given - Provider: Sandy Will RN - Reason: Other)1402 (Not Given - Provider: Paty Garrison RN - Reason: IV Infusing) Continuous Medication Order 07/22/2018 07/23/2018 07/24/2018 dextrose 5% and sodium chloride 0.45% with potassium chloride 20 mEq/L infusion (premix) 100 mL/hr, intravenous, Continuous, Starting on Sun07/23/18 at 1330, Phase I & Post-op Floor, Discontinue when tolerating clear liquid 1313 (New Bag - Provider: Nallely New RN) Lactated Ringer's (LR) infusion (CANCELED) 30 mL/hr, [...] Call MD for each episode of hypoglycemia. COMMERCIAL INSTALLER STATES GLUTOSE-15 CONTAINS GLUCOSE 40% W/W (50% [...] Indications: hypertension 1116 (Given - Provider: Baldomero Barfield RN) HYDROcodone-acetaminophen (NORCO) 5-325 mg per tablet 2 tablet 2 tablet, oral, 4 times daily PRN, 1st line for pain, Starting on Sun07/23/18 at 1252, May repeat in 1 hour if pain is uncontrolled or increasing. Max 2 doses within 1 dosing interval., Indications: Pain 0029 (Given - Provider: Sandy Will, DEANDRE)0640 (Given - Provider: Sandy Will, DEANDRE)1649 (Given - Provider: Paty Garrison, DEANDRE)1840 (Given - Provider: Paty Garrison, RN) HYDROmorphone [...] Call MD for each episode of hypoglycemia. COMMERCIAL INSTALLER STATES GLUTOSE-15 CONTAINS GLUCOSE 40% W/W (50% [...] %) nebulizer solution 2.5 mg 1 07/23/2018 dextrose (D10W) 10% bolus 250 [...] mg 1 07/23/2018 Lactated Ringer's (LR) infusion 1 9 levoFLOXacin (LEVAQUIN) 500 mg/100 mL in dextrose 5% (premix) 500 mg 2 07/23/2018 lidocaine in dextrose 5% 2 g /250 mL (8 mg/mL) infusion (premix) 2 07/23/2018 meperidine (DEMEROL) preserv ative free injection 12.5 mg 1 07/23/2018 naloxone (NARCAN) 0.4 mg/mL injection 0.04-0.4 mg 1 07/23/2018 ondansetron (ZOFRAN) injection 4 mg 2 07/23 ondansetron ODT (ZOFRAN-ODT) disintegrating tablet 4 mg 1 07/23/2018 oxyCODONE (ROXICODONE) tablet 5 mg 1 2018 racepinephrine (ASTHMANEFRIN ) 2.25 % nebulizer solution 0.5 mL 1 07/23/2018 sodium chloride 0.9% flush 0.5-20 mL 4 [...] First Orde red Date ASSIGN PATIENT STATUS 07/23/2018 documented in this encounter Care Teams Cosmetic Sales Consultant Relationship Specialty Start Date End Date Jarred Rod MD PCP - General 09/16/16 documented as of this encounter
--- OUTSIDE RECORDS SUMMARY | 2024-03-02 22:17 | XMS_ITS | Encounter Summary ---
Author Organization [facility] Address [address] [place] [address] Care Team Providers Care Circulation Clerk Name Role Phone Jarred Rod MD Primary Care Provider [phone]- [phone] Encounter Details Date Type Department Care Team (Late st Contact Info) Description 07/07/2020 Telephone [facility] Cardiology [address] [facility] [address] [place] [address] Lio Fonseca MD [facility] [id number] Social History Tobacco Use Types Packs/Day Years Used Date Smoking Tobacco: Never Smokeless Tobacco: Never Alcohol Use Standard Drinks/Week Comments Not Currently 0 (1 standard drink = 0.6 oz pur e alcohol) Comments No Sex and Gender Information Value Date Recorded Sex Assigned at Not on file 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 Fonseca requesting patient be scheduled for LHC at . Spoke with patient and in room 2 at the [place] office. Scheduled patient for LHC on 07/23/20. Spoke with Araceli in scheduling, ordered labs and faxed to be done at [facility] between 07/19-07/20. Explained procedure and medications to patient. She is to hold insulin the night before and the morning of her procedure to decrease risk of Hypoglycemia. Patient and given information packet explaining date, time, and all instructions for the night before and the day of procedure also directions to op-surgery center. Both verbalized understanding and all questions answered. Phone nuber to call given for any other questions they may have. documented in this encounter Plan of Treatment Scheduled Orders Name Type Priority Associated Diagnoses Orde r Schedule Comprehensive metabolic panel Lab Routine Chest pain, unspecified type Pre-op evaluation Expected: 07/07/2020, Expires: 07/07/2021 CBC with auto differential Lab Routine Chest pain, unspecified type Pre-op evaluation Expected: 07/07/2020, Expires: 07/07/2021 Protime-INR Lab Routine Chest pain, unspecified type Pre-op evaluation Expected: 07/07/2020, Expires: 07/07/2021 documented as of this encounter Visit Diagnoses Diagnosis Chest pain, unspecified type- Primary Pre-op evaluation documented in this encounter Additional Health Concerns Infection Onset Date Last Indicated Resolved Time COVID19 Comment:12/15/2019 12/14/2019 12/13/2019 documented as of this encounter Care Teams Circulation Clerk Relationship Specialty Start Date End Date Jarred Rod MD PCP - General 09/16/16 documented as of this encounter
--- OUTSIDE RECORDS SUMMARY | 2024-03-02 22:17 | XMS_ITS | Encounter Summary ---
Author Organization [facility] Address [address] [place] [address] Care Team Providers Care Travel Cota Name Role Phone Juan Luevano MD Primary Care Provider [phone] Encounter Details Date Type Department Care Team (Latest Contact Info) Description 08/16/2016 9:54 AM CDT Hospital Encounter [facility] OP Jurgen Godinez MD [address] [address] Atherosclerosis of [place] artery of both lower extremities with intermittent claudication (CMS/HCC) Social History Tobacco Use Types Packs/Day Years Used Date Smoking Tobacco: Never Assessed Comments Unknown Sex and Gender Information Value Date Recorded Sex Assigned at Not on file 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
--- OUTSIDE RECORDS SUMMARY | 2024-03-02 22:17 | XMS_ITS | Referral Summary ---
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 Gender Identity Not on file Sexual Orientation [...] on file Medical Devices Implanted Type Area Health Benefits Specialist Device Identifier Shelf Expiration Date Model / Serial / Lot [employer] Adelita [id number] Upsylon 35.4cm Elongation Profile Lightweight Large Pore Low - [id number] Implanted:Qty: 1 on 07/23/2018 by Aydin Hair MD at [facility] N/A: Pelvis [employer] Adelita 03/21/2021 [id number] / / [id number] Additional Health Concerns Infection Onset Date Last Indicated COVID19 Comment:12/15/2019 12/14/2019 12/13/2019 Insurance R HMO REF [facility] HMO REF Advance Directives For more information, please contact: [phone] * Full Code (Latest Code Status on File) Date Activated Date Inactivated Comments 07/23/2018 12:52 PM 07/24/2018 11:50 PM Care Teams Bowling Alley Refinisher Relationship Specialty Start Date End Date Jarred Rod MD PCP - General 09/16/16
--- OUTSIDE RECORDS SUMMARY | 2024-03-02 22:17 | XMS_ITS | Encounter Summary ---
Author Organization [facility] Address [address] [place] [address] Care Team Providers Care Emergency Communications Dispatcher Name Role Phone Jarred Rod MD Primary Care Provider +1- [phone] Encounter Details Date Type Department Care Team (Late st Contact Info) Description 05/25/2020 Orders Only [facility] Cardiology [address] [place] [address] ProviderDawson MD [address] [place] [address] Social History Tobacco Use Types Packs/Day Years Used Date Smoking Tobacco: Never Alcohol Use Standard Drinks/Week Comments Not Currently 0 (1 standard drink = 0.6 oz pur e alcohol) Comments No Sex and Gender Information Value Date Recorded Sex Assigned at Not on file 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 Gender Identity Not on file Sexual Orientation Not on file documented as of this encounter Plan of Treatment Not on file documented as of this encounter Procedures Procedure Name Priority Date/Time Associated Diagnosis Comments CARDIOLOGY DOCUMENT SCAN Routine 05/25/2020 documented in this encounter Results * SCAN - CARDIOLOGY (05/25/2020) Anatomical Region Laterality Modality Other Historical Provider [facility] FLETCHER PAUL Final Result documented in this encounter Visit Diagnoses Not on filedocumented in this encounter Additional Health Concerns Infection Onset Date Last Indicated Resolved Time COVID19 Comment:12/15/2019 12/14/2019 12/13/2019 documented as of this encounter Care Teams Emergency Communications Dispatcher Relationship Specialty Start Date End Date Jarred Rod MD PCP - General 09/16/16 documented as of this encounter
--- OUTSIDE RECORDS SUMMARY | 2024-03-02 22:17 | XMS_ITS | Encounter Summary ---
Author Organization [facility] Care Team Providers Care Pathology Supervisor Name Role Phone Jarred Rod MD Primary Care Provider [phone]- [phone] Encounter Details Date Type Department Care Team (Latest Contact Info) Description 01/22/2019 Travel Social History Tobacco Use Types Packs/Day Years Used Date Smoking Tobacco: Never Alcohol Use Standard Drinks/Week Comments Not Currently 0 (1 standard drink = 0.6 oz pur e alcohol) Comments No Sex and Gender Information Value Date Recorded Sex Assigned at Not on file Legal Sex Female 10:55 AM PRIMARY CARE MD Gender Identity Not on file Sexual Orientation Not on file documented as of this encounter Plan of Treatment Not on file documented as of this encounter Visit Diagnoses Not on filedocumented in this encounter Care Teams Pathology Supervisor Relationship Specialty Start Date End Date Jarred Rod MD PCP - General 09/16/16 documented as of this encounter
--- OUTSIDE RECORDS SUMMARY | 2024-03-02 22:17 | XMS_ITS | Encounter Summary ---
Author Organization [facility] Address [address] [place] [address] Care Team Providers Care Verifier Operator Name Role Phone Jarred Rod MD Primary Care Provider [phone]- [phone] Reason for Visit * Reason Comments Chest Pain * Consultation (Routine) - Closed Specialty Diagnoses / Procedures Referred By Contac t Referred To Contact Cardiology Diagnoses Other chest pain Jarred Rod MD [address] [place] [address] Phone: tel: fax: [facility] Cardiology [address] [place] [address] Phone: tel: fax: Referral ID Status Reason Start Date Expiration Date V isits Requested Visits Authorized [id number] Closed Specialty Services Required 07/02/2020 12/29/2020 12 12 Encounter Details Date Type Department Care Team (Late st Contact Info) Description 07/07/2020 1:15 PM CDT Office Visit [facility] Medical [facility] Cardiology [address] [place] [address] Lio Fonseca MD [address] [address] Precordial pain (Primary Dx); BRISCOE (dyspnea on exertion); Essential hypertension; Type 2 diabetes mellitus with other specified complication, with long-term current use of insulin ([facility]); Dyslipidemia; Other chest pain Social History Tobacco Use Types Packs/Day Years Used Date Smoking Tobacco: Never Smokeless Tobacco: Never Alcohol Use Standard Drinks/Week Comments Not Currently 0 (1 standard drink = 0.6 oz pur e alcohol) Comments No Sex and Gender Information Value Date Recorded Sex Assigned at Not on file Legal Sex Female 10:55 AM 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 Gender Identity Not on file Sexual Orientation Not on file documented as of this encounter Last Filed Vital Signs Vital Sign Reading Time Taken Comments Blood Pressure 132/78 07/07/2020 1:03 PM CDT Pulse 77 07/07/2020 1:03 PM CDT Temperature - - Respiratory Rate - - Oxygen Saturation 100% 07/07/2020 1:03 PM CDT Inhaled Oxygen Concentration - - Weight 91.2 kg (201 lb) 07/07/2020 1:03 PM CDT Height 167.6 cm (5' 6 ) 07/07/2020 1:03 PM CDT Body Mass Index 32.44 07/07/2020 1:03 PM CDT documented in this encounter Ordered Prescriptions Prescription Sig Dispense Quantity Refills Last Filled Start Date End Date nitroglycerin (NITROSTAT) 0.[address] 1 tablet (0.4 mg total) under the tongue every 5 (five) minutes as needed for chest pain May repeat dose q 5 min, up to 3 doses total 90 tablet 3 07/07/2020 documented in this encounter Progress Notes * Lio Fonseca MD - 07/07/2020 1:15 PM CDT [facility] 07/07/2020 CHIEF COMPLAINT Chief Complaint Patient presents with ??? Chest Pain Chest pain, off and on HPI Lena Mcneal is a 50 y.o. female with past medical history of [...] denies any prior cardiac history including clinical OH, angina, heart failure or any significant arrhythmias in the past. Patient states that she was diagnosed with diabetes mellitus several years ago, and has been on insulin. Patient is a nonsmoker, denies alcohol or illicit drugs. She is on disability due to chronic left foot pain. 07/07/2020-patient is here for the follow-up visit. She states that she has been experiencing recurrent episodes of chest discomfort, left-sided, sharp sensation with occasional radiation to the leftshoulder. Symptoms are not necessarily related to exertion. She also has dyspnea on mild exertion. Denies palpitation, dizziness or syncope. She states that she went to [facility] in March 2020 with similar complaints of chest discomfort. She reports compliance with current medical regimen. MEDICAL HISTORY she has a past medical history of Hypercholesteremia (07/11/2018), Hypertension (07/11/2018), Nephrolithiasis (07/11/2018), and Type 2 diabetes mellitus ([facility]CC) (07/11/2018). she has a past surgical history that includes IR Fluid Aspiration (N/A, 05/10/2012); Laparoscopic pyeloplasty (04/2012); Cystoscopy w/ ureteral stent placement (2012); Hysterectomy (2004); Toe amputation (Left); and Eye surgery. she Allergies Allergen Reactions ??? Amoxicillin Rash ??? Penicillins Rash Occurred within 24 hours Current Outpatient Medications Medication Sig Dispense Refill ??? docusate sodium (DOK) 100 mg tablet Take 100 mg by mouth 2 (two) times a day ??? dulaglutide (TRULICITY) 1.5 mg/0.5 mL pen injector Inject 1.5 mg under the skin every 7 days ??? famotidine (PEPCID) 10 mg tablet Take 10 mg by mouth 2 (two) times a day ??? hydroCHLOROthiazide (HYDRODIURIL) 25 mg tablet Take 25 mg by mouth daily ??? insulin lispro protamin-insulin lispro (HumaLOG 75/25) [...] total) by mouth daily 30 tablet 11 ??? nitroglycerin (NITROSTAT) 0.[address] 1 tablet (0.4 mg total) under the tongue every5 (five) minutes as needed for chest pain May repeat dose q 5 min, up to 3 doses total 90 tablet 3 No current facility-administered medications for this visit. she family history includes Heart attack in her father and mother; Stroke in her sister. she reports that she has never smoked. She has never used smokeless tobacco. She reports previous alcohol use. She reports previous drug [...] breath Gastrointestinal ROS: negative for - abdominal pain Endocrine ROS: negative for - hot flashes, polydipsia/polyuria Genito-Urinary ROS: negative for - dysuria, hematuria Musculoskeletal ROS chronic left foot pain Neurological ROS: negative for - gait disturbance, weakness Dermatological ROS: negative for pruritus, rash LABS AND OTHER DIAGNOSTIC TESTS REVIEWED Lab Results Component Value Date WBC 11.2 (H) 04/12/2020 HGB 11.0 (L) 04/12/2020 HCT 32.8 (L) 04/12/2020 MCV 90.9 04/12/2020 No lab exists for component: LABALBU Lab Results Component Value Date WBC 11.2 (H) 04/12/2020 HGB 11.0 (L) 04/12/2020 HCT 32.8 (L) 04/12/2020 MCV 90.9 04/12/2020 Lab Results Component Value Date CHOL 194 04/12/2020 CHOL 181 12/14/2019 CHOL 218 (H) 03/07/2014 Lab Results Component Value Date HDL 41 04/12/2020 HDL 37 12/14/2019 HDL 38 (L) 03/07/2014 No results found for: LDL] Lab Results Component Value Date TRIG 326 (H) 04/12/2020 TRIG 250 (H) 12/14/2019 TRIG 663 (H) 03/07/2014 Lipid panel-total cholesterol 202, HDL 44, triglycerides 271, LDL 103. 01/22/2019 EKG-sinus rhythm, voltage criteria for LVH, prolonged QTC 560 milliseconds. 01/22/2019 MPI- Normal sinus rhythm. Nonspecific T wave abnormality. No diagnostic ST changes. Global left ventricular function is normal. Left ventricular ejection fraction is 63 %. Probably normal myocardial perfusion imaging. Anterior and anterolateral defects are seen which partially normalize with prone imaging. This likely represents breast attenuation artifact. 02/20/2019-Dr. Barney Echo- Normal appearance of the tricuspid valve. Trivial regurgitation in the tricuspid valve(withinnormal physiologic limits ). Otherwise normal study. 03/06/2019-Dr. Pérez EKG-sinus rhythm, voltage criteria for LVH. 07/07/2020 PHYSICAL EXAM Vitals BP 132/78 (BP Location: Left arm, Patient Position: Sitting) Pulse 77 Ht 167.6 cm (5' 6 ) Wt 91.2 kg (201 lb) SpO2 100% BMI 32.44 kg/m?? General appearance - obese, alert, no distress, oriented to time, place, [...] - normal rate, regular rhythm, normal S1, S2 Abdomen - soft, nontender, nondistended, bowel sounds present Neurological - alert, oriented, normal speech, no gross motor deficits Musculoskeletal - no major deformity, no amputations Extremities - no pedal edema, no clubbing or cyanosis Skin - no rashes (on the exposed areas), no cyanosis ASSESSMENT Diagnoses and all orders for this visit: Precordial pain (Primary) BRISCOE (dyspnea on exertion) Essential hypertension Type 2 diabetes mellitus with other specified complication, with long-term current use of insulin ([facility]) Dyslipidemia Other orders - nitroglycerin (NITROSTAT) 0.4 mg SL tablet; Place 1 tablet (0.4 mg total) under the tongue every 5 (five) minutes as needed for chest pain May repeat dose q 5 min, up to 3 doses total PLAN/RECOMMENDATIONS 50 y.o. female with recurrent episodes of chest pain , hypertension, dyslipidemia, type 2 diabetes mellitus on insulin, obesity. - patient has been experiencing recurrent episodes of left-sided chest pain and dyspnea on exertionwith recent ER visit. Her MPI from 02/20/2019 did not show definite ischemia. Patient has coronary risk factors including hypertension, diabetes mellitus, obesity. Due to recurrent episodes of chest discomfort, it would be reasonable to evaluate patient's coronary anatomy and rule out significant obstructive CAD. Patient opted cardiac catheterization or coronary CT angiogram. Benefits, risks and alternatives of the procedure discussed with the patient. -nitroglycerin sublingual sent to the pharmacy. - patient's blood pressure is reasonably controlled at present, continue current antihypertensives.Continue statin. Patient advised to resume low-dose aspirin regimen. - patient advised to go to the nearest emergency room if she has persistent or severe chest discomfort or shortness of breath. She verbalized understanding. - follow-up in approximately 8-10 weeks or sooner if needed. Lio Fonseca MD 07/07/20 Voice recognition software was used to complete this document, therefore, assessment clinician variances may occur. documented in this encounter Plan of Treatment Not on file documented as of this encounter Procedures Procedure Name Priority Date/Time Associated Diagnosis Comments ECG 12-LEAD Routine 07/07/2020 Precordial pain Other chest pain documented in this encounter Results * ECG 12 lead (07/07/2020) us Lio Fonseca MD ECG ORDERABLES Final Result documented in this encounter Visit Diagnoses Diagnosis Precordial pain- Primary BRISCOE (dyspnea on exertion) Other dyspnea and respiratory abnormality Essential hypertension Unspecified essential hypertension Type 2 diabetes mellitus with other specified complication, with long-term current use of insulin (HCC) Dyslipidemia Other and unspecified hyperlipidemia Other chest pain documented in this encounter Discontinued Medications Medication Sig Discontinue Reason Start Date End Da te HYDROcodone-acetaminophe n (NORCO) 5-325 mg per tabletIndications:Pain Take 1-2 tablets by mouth every 4 (four) hours as needed for pain for up to 30 doses Therapy completed 07/23/2018 07/07/2020 documented as of this encounter Historical Medications * This list may reflect changes made after this encounter. famotidine (PEPCID) 10 mg tablet Take 10 mg by mouth 2 (two) times a day as needed hydroCHLOROthiazi de (HYDRODIURIL) 25 mg tablet Take 25 mg by mouth daily docusate sodium (DOK) 100 mg tabletIndications :constipation Take 100 mg by mouth 2 (two) times a day as needed added in this encounter Orders Outpatient Referral Count Last Ordered Date Fir st Ordered Date AMB REFERRAL TO CARDIOLOGY 1 07/07/2020 documented in this encounter Additional Health Concerns Infection Onset Date Last Indicated Resolved Time COVID19 Comment:12/15/2019 12/14/2019 12/13/2019 documented as of this encounter Care Teams Verifier Operator Relationship Specialty Start Date End Date Jarred Rod MD PCP - General 09/16/16 documented as of this encounter
--- OUTSIDE RECORDS SUMMARY | 2024-03-02 22:17 | XMS_ITS | Encounter Summary ---
Author Organization [facility] Healthcare Address [address] [place] [address] Care Team Providers Care Learning And Development Officer Name Role Phone Juan Luevano MD Primary Care Provider [phone] Encounter Details Date Type Department Care Team (Latest Contact Info) Description 09/15/2016 10:14 AM CDT - 09/15/2016 11:59 PM CDT Hospital Encounter [facility] [phone] Lorena Rico, DAIRY WORKER [address] [facility] [address] [place] [address] Discharge Disposition: Discharge to home or self care Social History Tobacco Use Types Packs/Day Years Used Date Smoking Tobacco: Never Comments Unknown Sex and Gender Information Value Date Recorded Sex Assigned at Not on file Legal Sex Female 10:55 AM PHARMACY 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 SERVICE Gender Identity Not on file Sexual Orientation Not on file documented as of this encounter Discharge Disposition Disposition Code Departure Means Destination Discharge to home or self care documented in this encounter Plan of Treatment Not on file documented as of this encounter Procedures Procedure Name Priority Date/Time Associated Diagnosis Comments NM DIURETIC RENAL IMAGING (LASIX RENAL SCAN) Routine 09/15/2016 5:39 PM CDT documented in this encounter Results * NM Renal Flow And Function W Pharm (09/15/2016 5:39 PM CDT) Anatomical Region Laterality Modality Body N/A Nuclear Medicine 09/15/2016 5:39 PM CDT Narrative 09/15/2016 5:39 PM CDT MD HANH DINH M.D. FINAL REPORT The radiology attending physician has personally reviewed this study, and has reviewed and/or edited this written report and agrees with it. ACC# ??Date Time ??Exam [id number] Sep 15, 2016 12:39:00 [id number] RENAL IM/DIURET EXAMINATION: ?DIURETIC RENAL SCINTIGRAPHY DATE OF STUDY: ??09/15/2016 RADIOPHARMACEUTICAL: ??7.60 mCi Tc-99m MAG3 ??i.v. and 40 mg furosemide i.v. 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 Patient reports that she had a right ureteral stent removed 2 years ago. ??The most recently obtained serum creatinine was 0.82 mg/dL on 08/18/2016. COMPARISON: 07/18/2012 MAG3 renal scintigraphy FINDINGS: A Thakkar catheter was not in place during this examination. The patient was hydrated orally before the examination was begun. ??The posterior abdominal radionuclide angiogram demonstrates normal, symmetrical perfusion of the kidneys. Sequential renal images show the right kidney to be mildly larger than the left. There is prompt uptake and excretion of the radiopharmaceutical by the left kidney. The uptake and excretion of the radiopharmaceutical is moderately delayed in the right kidney. After 20 minutes of imaging, there is a small amount of retained activity in the left collecting system, which appears of normal size. ??There is a moderate amount of retained activity in the right collecting system, which appears mildly enlarged with a persistent renogram curve. Static images were then obtained after erect positioning, however the patient was unable to void. The collecting system activity in in the left kidney is very minimal, however the right kidney shows moderately delayed excretion of the radiotracer on these images. The left ureter appears normal. The right ureter is not well visualized. The bladder appears normal. The estimated contribution of the left kidney to total renal function is 51% and that of the right kidney is 49%. To evaluate for obstruction, the patient was given furosemide via slow intravenous injection approximately 40 minutes after the start of the examination. ??Sequential images were obtained for an additional 34 minutes with the patient in the erect position. ??There is prompt clearance of pelvicalyceal activity on the left after diuretic administration. ??On the right, there is mildly delayed clearance of activity from the pelvicalyceal system. ??After diuretic administration, the half-time of tracer clearance from the left kidney is 7.3 minutes and from the right kidney is 9.9 minutes. When compared with the prior examination dated 07/18/2012, findings are similar. ?? IMPRESSION: 1. ?? The right kidney is mildly enlarged, with moderately delayed function and normal morphology. There is no evidence of right-sided obstruction.Lasix washout half-time is less than 10 minutes. The right kidney contributes 49% of total renal function. 2. ?? Normal left renal perfusion, function, and morphology, with no evidence of left-sided obstruction. ?? Requested By: Lorena Rico ??ANP ? Dictated By: ?? HANH FRANCOIS M.D. ??on Sep 15 2016 ??1:59P This document has been electronically signed by: NOLVIA WADE MD on Sep 15 2016 ??2:22P [id number] HANH DINH M.D. FINAL REPORT The radiology attending physician has personally reviewed this study, and has reviewed and/or edited this written report and agrees with it. Attending: ??JACKY, ??LORENA Requesting: ??Jacky, ??Lorena Requesting Fax: ?? Attending Fax: ?? Attending ID: ??[id number] Requesting ID: ??[id number] Report To 1 ID: ??[id number] ? Report To 1 Name: ??, ?? Report To 1 FAX: ?? NextGen Order #: ?? Procedure Note Miscellaneous, Not In File - 12/13/2016 MD HANH DINH M.D. FINAL REPORT The radiology attending physician has personally reviewed this study, and has reviewed and/or edited this written report and agrees with it. ACC# Date Time Exam [id number] Sep 15, 2016 12:39:00 [id number] RENAL IM/DIURET EXAMINATION: DIURETIC RENAL SCINTIGRAPHY DATE OF STUDY: 09/15/2016 RADIOPHARMACEUTICAL: 7.60 mCi Tc-99m MAG3 i.v. and 40 mg furosemidei.v. 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 Patient reports that she had a right ureteral stent removed 2 years ago. The most recently obtained serum creatinine was 0.82 mg/dL on 08/18/2016. COMPARISON: 07/18/2012 MAG3 renal scintigraphy FINDINGS: A Thakkar catheter was not in place during this examination. The patient was hydrated orally before the examination was begun. The posterior abdominal radionuclide angiogram demonstrates normal, symmetrical perfusion of the kidneys. Sequential renal images show the right kidney to be mildly larger than the left. There is prompt uptake and excretion of the radiopharmaceutical by the left kidney. The uptake and excretion of the radiopharmaceutical is moderately delayed in the right kidney. After 20 minutes of imaging, there is a small amount of retained activity in the left collecting system, which appears of normal size. There is a moderate amount of retained activity in the right collecting system, which appears mildly enlarged with a persistent renogram curve. Static images were then obtained after erect positioning, however the patient was unable to void. The collecting system activity in in the left kidney is very minimal, however the right kidney shows moderately delayed excretion of the radiotracer on these images. The left ureter appears normal. The right ureter is not well visualized. The bladder appears normal. The estimated contribution of the left kidney to total renal function is 51% and that of the right kidney is 49%. To evaluate for obstruction, the patient was given furosemide via slow intravenous injection approximately 40 minutes after the start of the examination. Sequential images were obtained for an additional 34 minutes with the patient in the erect position. There is prompt clearance of pelvicalyceal activity on the left after diuretic administration. On the right, there is mildly delayed clearance of activity from the pelvicalyceal system. After diuretic administration, the half-time of tracer clearance from the left kidney is 7.3 minutes and from the right kidney is 9.9 minutes. When compared with the prior examination dated 07/18/2012, findings are similar. IMPRESSION: 1. The right kidney is mildly enlarged, with moderately delayed function and normal morphology. There is no evidence of right-sided obstruction.Lasix washout half-time is less than 10 minutes. The right kidney contributes 49% of total renal function. 2. Normal left renal perfusion, function, and morphology, with no evidence of left-sided obstruction. Requested By: Lorena Rico ANP Dictated By: HANH FRANCOIS M.D. on Sep 15 2016 1:59P This document has been electronically signed by: NOLVIA WADE MD on Sep 15 2016 2:22P [id number] HANH DINH M.D. FINAL REPORT The radiology attending physician has personally reviewed this study, and has reviewed and/or edited this written report and agrees with it. Attending: LORENA RICO Requesting: Lorena Rico Requesting Fax: Attending Fax: Attending ID: [id number] Requesting ID: [id number] Report To 1 ID: [id number] Report To 1 Name: , Report To 1 FAX: NextGen Order #: Lorena Rico DAIRY WORKER IMG NM PROCEDURES Edit ed Result - Final documented in this encounter Visit Diagnoses Not on filedocumented in this encounter Care Teams Learning And Development Officer Relationship Specialty Start Date End Date Juan Luevano MD [address] [place] [address] PCP - General 09/15/16 09/15/16 documented as of this encounter
--- OUTSIDE RECORDS SUMMARY | 2024-03-02 22:17 | XMS_ITS | Encounter Summary ---
Author Organization [facility] Healthcare Address [address] [place] [address] Care Team Providers Care Industrial Ecologist Name Role Phone Jarred Rod MD Primary Care Provider [phone]- [phone] Encounter Details Date Type Department Care Team (Late st Contact Info) Description 07/23/2018 7:31 AM CDT Anesthesia Event [facility] Operating Room [facility] [place] [address] Kenan Burgess MD [address] [facility] [place] [address] Anesthesia Record Procedure Summary Procedure Name Responsible Anesthesiologist Anesthesia Start Time Anesthesia Stop Time Robotic Assisted Sacrocolpopexy, Cystoscopy (Pelvis) Kenan Burgess MD 07/23/18 0731 07/23/18 1105 Events Date Time Event Comment 07/23/2018 0653 0731 An Start 0735 In Room 0735 An Start Data 0738 Start Supplemental O2 0739 An Induction The patient was reevaluated immediately before moderate or deep sedation use and before anesthesia induction. 0742 An Intubation 0745 IV Placed 0754 Anesthesia Ready 0813 Proc Start 1050 Proc Fin 1052 An Extubation 1057 an stop data 1057 Out of Room 1102 Handoff to RN I completed my handoff to the receiving nurse during which we: 1. Patient identified 2. Responsible provider identified 3. Pertinent medical history reviewed 4. Procedure type and surgical course discussed 5. Intraoperative anesthetic management and any significant issues discussed 6. Expectations and concerns for postop period discussed 7. Questions solicited from receiving nurse 8. Patient disposition at the time of handoff: PACU 1105 An Stop 1152 Release from care Meds Name Total midazolam 2 mg fentaNYL 100 mcg lidocaine (CARDIAC) syringe 2 % 5 mL propofol 150 mg succinylcholine 100 mg rocuronium 50 mg phenylephrine syringe 100 mcg/ml 200 mcg glycopyrrolate 0.6 mg neostigmine 3 mg ondansetron 4 mg dexamethasone 4 mg/ml 8 mg levoFLOXacin (LEVAQUIN) 500 mg/100 mL in dextrose 5% (premix) 500 mg 500 mg famotidine 20 mg HYDROmorphone 2 mg/mL 0.5 mg lidocaine in dextrose 5% 2 g/250 mL (8 m g/mL) infusion (premix) 510.93 mg Lactated Ringer's (LR) infusion 700 mL LR 400 mL * Agents Name O2 Air Sevoflurane Inspired Sevoflurane * Blood No blood administrations on file. Lines, Drains, and Airways Type Details Placement Removal Peripheral IV Placement Date: 07/23/18; Placement Time: 727; Catheter Size: 22 G; Orientation: Left; Location: Forearm; Site Prep: Chlorhexidine; Technique: Anatomical landmarks; Inserted by: Karla Escobar CRNA; Insertion Attempts: 1 (2 prior attempts by RN); Patient Tolerance: Tolerated well; Removal Date: 07/23/18; Removal Time: 105107/23/18 07 by Aidan Shetty RN 07/23/18 105 by Elle Escobar CRNA ETT Placement Date: 07/23/18; Placement Time: 0740 (created via procedure documentation); Mask Ventilation: 1; Technique: Video laryngoscopy; Type: ETT - single; Single Lumen Tube Size: 7 mm; Cuffed: Yes; Location: Oral; Insertion Attempts: 1; Placement Verification: Auscultation, Capnometry; Removal Date: 07/23/18; Removal Time: 105107/23/18 0740 by Elle Escobar CRNA 07/23/18 105 by Elle Escobar CRNA Peripheral IV Placement Date: 07/23/18; Placement Time: 0745; Catheter Size: 18 G; Orientation: Left; Location: Forearm; Site Prep: Chlorhexidine; Technique: Anatomical landmarks; Inserted by: Karla Escobar CRNA; Insertion Attempts: 1; Patient Tolerance: Tolerated well; Removal Date: 07/24/18; Removal Time: 165807/23/18 0745 by Elle Escobar CRNA 07/24/18 1659 by Paty Garrison RN NG/OG Tube Placement Date: 07/23/18; Placement Time: 0754; Inserted by: Karla Escobar CRNA; Type: Orogastric; Size: 16 Fr; Location: Center mouth; Removal Date: 07/23/18; Removal Time: 1045; Removal Reason: Per protocol 07/23/18 0754 by Elle Escobar CRNA 07/23/18 1045 by Elle Escobar CRNA RETIRED Surgical Site 07/23/18; 0755; Abdomen; 07/24/18; 165807/23/18 0755 by Milka Valdivia RN 07/24/18 1659 by Paty Garrison RN RETIRED Surgical Site 07/23/18; 0755; Perineum; 07/24/18; 0753 07/23/18 0755 by Milka Valdivia RN 07/24/18 0753 by Paty Garrison RN RETIRED Surgical Site 07/23/18; 0755; Va aissatou; 07/24/18; 0753 07/23/18 0755 by Milka Valdivia RN 07/24/18 0753 by Paty Garrison RN Urethral Catheter Placement Date: 07/23/18; Placement Time: 0808; Inserted by: Cornelia Hair MD; Type: Latex; Size: 16 Fr.; Urine Returned: Yes; Removal Date: 07/24/18; Removal Time: 0637 07/23/18 0808 by Milka Valdivia RN 07/24/18 0637 by Sandy Will RN documented in this encounter Social History Tobacco Use Types Packs/Day Years Used Date Smoking Tobacco: Never Alcohol Use Standard Drinks/Week Comments Not Currently 0 (1 standard drink = 0.6 oz pur e alcohol) Comments No Sex and Gender Information Value Date Recorded Sex Assigned at Not on file 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 Gender Identity Not on file Sexual Orientation Not on file documented as of this encounter OR Notes * Anesthesia Postprocedure Evaluation - Kenan Burgess MD - 07/23/2018 11:51 AM CDT Patient: Lena Mcneal Procedure Summary Date: 07/23/18 [place] [facility] [place] [facility] [place] [facility] Anesthesia Start: 07 Anesthesia Stop: 110 Procedure: Robotic Assisted Sacrocolpopexy, Cystoscopy (N/A Pelvis) Diagnosis: Cervical stump prolapse (Cervical stump prolapse [N81.85]) Surgeon: Aydin Hair MD Responsible Provider: Kenan Burgess MD Anesthesia Type: general ASA Status: 3 Anesthesia Type: general Last vitals BP 150/88 Pulse 91 Temp 36.4 ??C (97.6 ??F) (Transdermal) Resp 15 SpO2 100% Anesthesia Post Evaluation Patient location during evaluation: PACU Patient participation: complete - patient participated 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 of 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 Pain score: 0 Pain management: adequate Airway patency: adequate Anesthetic complications: no Cardiovascular status: acceptable and hemodynamically stable Respiratory status: acceptable and nasal cannula (2L) Hydration status: acceptable Pt is: normothermic Nausea/Vomiting status: none * Anesthesia Procedure Notes - Elle Escobar CRNA - 07/23/2018 8:16 AM CDT Associated Order(s): Airway Airway Patient location: OR Urgency: elective Date/time: 07/23/2018 7:40 AM Indications for airway management: anesthesia Difficult airway: no Staff: Placed by: HAND STRIPPER: Elle Escobar CRNA Emergent airway documentation: Risks and benefits discussed: yes Consent obtained: yes Consent given by: patient Airway prep: Preoxygenated: yes Patient position: sniffing and reverse Trendelenburg Mask difficulty assessment: 1 - vent by mask Spontaneous ventilation during airway: absent Sedation level during airway: GA Final airway details: Final airway type: endotracheal airway Tube type: ETT ETT size: 7.0 mm Cuffed: yes Technique used for successful ETT placement: video laryngoscopy Devices/Methods used in placement: intubating stylet and cricoid pressure Insertion site: oral Video blade type: Glidescope Cormack-Lehane (video): grade I - full view of glottis Cuff inflated with: air ETT to lips: 21 cm Placement verified by: auscultation and CO2 detection Airway secured with: silk tape Number of attempts: 1 * Anesthesia Preprocedure Evaluation - Kenan Burgess MD - 07/11/2018 11:18 AM CDT I agree with current problem list generated in anesthesia pre-evaluation note in addition to associated edits. - [facility] Anesthesia Evaluation Lena Paredes is a 48 y.o. female with history of cervical stump prolapse who presents today for pre surgical evaluation of Robotic Assisted Sacrocolpopexy by Aydin Hair MD Procedure(s): Robotic Assisted Sacrocolpopexy Pre-Op Diagnosis Codes: * Cervical stump prolapse [N81.85] NPO: 0420 Gatorade HISTORY Past Medical History Information obtained from: patient and chart. Neurological Neuro/Psych system: negative Cardiovascular + Hypertension (Patient reports not checking BP values) Typical systolic BP - 142 Respiratory Respiratory system: negative Hepatic / Heme Hepatic/Heme system: negative Gastrointestinal GI system: negative Renal / + Nephrolithiasis Comments: Cervical stump prolapse Musculoskeletal/Pain + Chronic pain (lower back and left leg ) + Osteoarthritis Endocrine / Other + Diabetes mellitus (BS 98 @ 0624) - Diabetes type 2. Diabetic complications: neuropathy. Outpatient insulin use: current. + Obesity (BMI >30) + Eye disorder - blindness. Functional Capacity Functional capacity: <4 METs Comments: Using wheelchair for long distances Walker Needs assistance with dressing, meal prep. Review of Systems + chronic pain (lower back and left leg ) Pertinent negatives: productive cough; SOB; recent cold/flu; fever; chest pain and heartburn Patient Active Problem List Diagnosis ??? Type 2 diabetes mellitus (CMS/HCC) ??? Hypertension ??? Hypercholesteremia ??? Nephrolithiasis Past Medical History: Diagnosis Date ??? Hypercholesteremia [...] LAPAROSCOPIC PYELOPLASTY 04/2012 ??? TOE AMPUTATION Left Patient denies any personal or family hx/o anes comp Allergies Allergen Reactions ??? Amoxicillin Rash ??? Penicillins Rash Occurred within 24 hours Current Outpatient Medications: ??? dulaglutide (TRULICITY) 1.5 mg/0.5 mL pen injector ??? insulin lispro protamin-insulin lispro (HumaLOG 75/25) 100 unit/mL (75-25) suspension ??? insulin lispro protamin-insulin lispro (HumaLOG 75/25) 100 unit/mL (75-25) suspension ??? lisinopril (PRINIVIL,ZESTRIL) 40 mg tablet ??? metoprolol (LOPRESSOR) 50 mg tablet ??? simvastatin (ZOCOR) 40 mg tablet AM Meds: None Social History Tobacco Use Smoking Status Never Smoker Substance and Sexual Activity Alcohol Use Not Currently Substance and Sexual Activity Drug Use Not Currently Family History Problem Relation Age of Onset ??? Heart attack Mother ??? Heart attack Father ??? Stroke Sister PAT Physical Exam Airway Exam: Cervical ROM: FROM TM distance: >4 (NC/AT) Cardiovascular Exam: Rate: regular Pulmonary Exam: LCTA, bilat EENT Exam: trachea midline Dental Exam: Appears intact Skin Exam: Skin is warm. Abdominal exam: Abdomen is soft. Bowel sounds are present. Current state: Patient's current state is cooperative. Vitals: 07/11/18 1021 BP: 162/82 Pulse: 80 SpO2: 98% STOP-Bang Total Score: 2 Marcos Activity Status Index Score: 9.8 CBC Lab Results Component Value Date WBC 9.2 07/11/2018 RBC 4.17 07/11/2018 HGB 12.6 07/11/2018 HCT 37.9 07/11/2018 LABPLAT 301 07/11/2018 MCV 90.9 07/11/2018 MCH 30.2 07/11/2018 MCHC 33.2 07/11/2018 MPV 10.7 07/11/2018 hgbA1C Lab Results Component Value Date HGBA1C 7.4 (H) 07/11/2018 Type&Screen Lab Results Component Value Date ABORH B Positive 07/11/2018 IDCOOMB Negative 07/11/2018 BMP Lab Results Component Value Date SODIUM 136 07/11/2018 POTASSIUM 3.9 07/11/2018 CHLORIDE 99 07/11/2018 CO2 27 07/11/2018 ANIONGAP 10 07/11/2018 BUNSER 16 07/11/2018 CREATININE 0.80 07/11/2018 GFRNAA 88 07/11/2018 CALCIUM 9.2 07/11/2018 Urine studies Lab Results Component Value Date COLORU Yellow 07/11/2018 CLARITYU Clear 07/11/2018 SPECGRAVU 1.011 07/11/2018 PHURINE 6.0 07/11/2018 GLUCOSEU 3+ (A) 02/04/2014 KETONESU Negative 07/11/2018 WBCU 0-5 07/11/2018 RBCU 0-2 07/11/2018 EPISQUAMU 1-5 07/11/2018 HYALCASTU >25 03/22/2012 BACTERIAU Trace 03/27/2012 Urine microbiology Lab Results Component Value Date WBCU 0-5 07/11/2018 RBCU 0-2 07/11/2018 EPISQUAMU 1-5 07/11/2018 HYALCASTU >25 03/22/2012 MUCUSU Present (A) 07/11/2018 BACTERIAU Trace 03/27/2012 ECG 07/11/2018: SINUS RHYTHM MINIMAL VOLTAGE CRITERIA FOR LVH, CONSIDER NORMAL VARIANT NONSPECIFIC T-WAVE ABNORMALITY BORDERLINE ECG Labs reviewed and results within anesthesia guidelines This is a 48 y.o. female with clinical risk factors of DM 2 per ACC/AHA guidelines with moderate functional capacity presents for an intermediate risk procedure. DOS instructions reviewed with patient. Nutritional screening normal, no prescription for supplements given. Patient was offered second provider in room during exam, patient declined. SEC evaluation complete. DOS Physical Exam Medical history, medications, and allergies reviewed. Attestation: With today's edits, I endorse the findings of the anesthesia pre-evaluation assessment dated: 07/23/2018. Airway Exam: Mallampati: II Cervical ROM: FROM Cardiovascular Exam: Rate: regular Rhythm: regular Pulmonary Exam: LCTA, bilat Dental Exam: Missing and otherwise appears intact (Multiple missing Lower Right Back Missing x 1 Lower Left Back) Current state: Patient's current state is cooperative. Anesthesia Plan ASA 3 My patient is approved for the Anesthesia Controlled Medication protocol when under care of a HAND STRIPPER Planned anesthesia: General Team communication plan: oral ET tube Induction: Induction: intravenous. Postoperative Plan: Postoperative administration opioids intended. No postoperative mechanical ventilation intended. Patient's planned disposition post procedure is Floor. Informed Consent: Discussed plan with HAND STRIPPER. Anesthesia plan and risks discussed with patient, son, mother and spouse. Consent and Attending signature: I and/or my designee have discussed the anesthesia plan, benefits, possible alternatives, parental presence at time of induction (if indicated), and clinically relevant risks that may include dental injury, unintentional awareness, and/or other complications. The patient and/or parent/legal guardian understand, and agree to proceed. All questions answered. 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 Airway Patient location: OR Urgency: elective Date/time: 07/23/2018 7:40 AM Indications for airway management: anesthesia Difficult airway: no Staff: Placed by: HAND STRIPPER: Elle Escobar CRNA Emergent airway documentation: Risks and benefits discussed: yes Consent obtained: yes Consent given by: patient Airway prep: Preoxygenated: yes Patient position: sniffing and reverse Trendelenburg Mask difficulty assessment: 1 - vent by mask Spontaneous ventilation during airway: absent Sedation level during airway: GA Final airway details: Final airway type: endotracheal airway Tube type: ETT ETT size: 7.0 mm Cuffed: yes Technique used for successful ETT placement: video laryngoscopy Devices/Methods used in placement: intubating stylet and cricoidpressure Insertion site: oral Video blade type: Glidescope Cormack-Lehane (video): grade I - full view of glottis Cuff inflated with: air ETT to lips: 21 cm Placement verified by: auscultation and CO2 detection Airway secured with: silk tape Number of attempts: 1 ME AN ELECTIVE ENDOTRACHEAL AIRWAY Routine 07/23/2018 8:16 AM CDT Procedure Note - Elle Escobar CRNA - 07/23/2018 8:16 AM CDTThis note is in progress. Airway Patient location: OR Urgency: elective Date/time: 07/23/2018 7:40 AM Indications for airway management: anesthesia Difficult airway: no Staff: Placed by: HAND STRIPPER: Elle Escobar CRNA Emergent airway documentation: Risks and benefits discussed: yes Consent obtained: yes Consent given by: patient Airway prep: Preoxygenated: yes Patient position: sniffing and reverse Trendelenburg Mask difficulty assessment: 1 - vent by mask Spontaneous ventilation during airway: absent Sedation level during airway: GA Final airway details: Final airway type: endotracheal airway Tube type: ETT ETT size: 7.0 mm Cuffed: yes Technique used for successful ETT placement: video laryngoscopy Devices/Methods used in placement: intubating stylet and cricoidpressure Insertion site: oral Video blade type: Glidescope Cormack-Lehane (video): grade I - full view of glottis Cuff inflated with: air ETT to lips: 21 cm Placement verified by: auscultation and CO2 detection Airway secured with: silk tape Number of attempts: 1 documented in this encounter Visit Diagnoses Not on filedocumented in this encounter Administered Medications Inactive Administered Medications - up to 3 most recent administrations Medication Order MAR Action Action Date Dose Rate Site dexamethasone (DECADRON) 4 mg/mL injection intravenous, Administer over 2 Minutes, As needed, Starting on Sun07/23/18 at 0846, Anesthesia Intra-op Given 07/23/2018 8:46 AM CDT 8 mg famotidine (PEPCID) injection Administer over 2 Minutes, As needed, Starting on Sun07/23/18 at 0837, Anesthesia Intra-op Given 07/23/2018 8:37 AM CDT 20 mg fentaNYL (SUBLIMAZE) preservative free injection intravenous, As needed, Starting on Sun07/23/18 at 0739, Anesthesia Intra-op Given 07/23/2018 8:12 AM CDT 50 mcg Given 07/23/2018 7:39 AM CDT 50 mcg glycopyrrolate (ROBINUL) injection intravenous, Administer over 1 Minutes, As needed, Starting on Sun07/23/18 at 1032, Anesthesia Intra-op Given 07/23/2018 10:32 AM CDT 0.6 mg HYDROmorphone (DILAUDID) injection Administer over 2 Minutes, As needed, Starting on Sun07/23/18 at 0822, Anesthesia Intra-op Given 07/23/2018 8:22 AM CDT 0.5 mg Lactated Ringer's (LR) infusion 30 mL/hr, intravenous, Continuous, Starting on Sun07/23/18 at 0645 New Bag 07/23/2018 7:22 AM CDT Lactated Ringer's (LR) infusion Continuous PRN, Starting on Sun07/23/18 at 0746, Anesthesia Intra-op New Bag 07/23/2018 7:46 AM CDT levoFLOXacin (LEVAQUIN) 500 mg/100 mL in dextrose 5% (premix) 500 mg 500 mg, intravenous, at 100 mL/hr, Administer over 60 Minutes, Once, On Sun07/23/18 at 0645, For 1 dose, Pre-Op, Administer within 120 minutes of incision., Indications: Prophylaxis, SurgicalIndications:Prophy laxis, Surgical Given 07/23/2018 7:35 AM CDT 500 mg lidocaine (cardiac) (XYLOCAINE) preservative free injection intravenous, As needed, Starting on Sun07/23/18 at 0739, Anesthesia Intra-op, Indications: Ventricular ArrhythmiasIndications:[place] tricular Arrhythmias Given 07/23/2018 7:39 AM CDT 5 mL lidocaine in dextrose 5% 2 g/250 mL (8 mg/mL) infusion (premix) 2 mg/kg/hr ? 88.6 kg (22.15 mL/hr, rounded to 22.2 mL/hr), intravenous, Continuous, Starting on Sun07/23/18 at 0730, Intra-Op, Decrease infusion rate to 1 mg/kg/hr upon PACU admission and stop infusion upon PACU discharge., Indications: Ventricular ArrhythmiasIndications:[place] tricular Arrhythmias Rate/Dose Change 07/23/2018 10:29 AM CDT 1 mg/kg/hr 11.08 mL/hr New Bag 07/23/2018 7:54 AM CDT 2 mg/kg/hr 22.2 mL/hr midazolam (VERSED) preservative free injection intravenous, Administer over 2 Minutes, As needed, Starting on Sun07/23/18 at 0731, Anesthesia Intra-op Given 07/23/2018 7:31 AM CDT 2 mg neostigmine injection intravenous, Administer over 3 Minutes, As needed, Starting on Sun07/23/18 at 1032, Anesthesia Intra-op Given 07/23/2018 10:32 AM CDT 3 mg ondansetron (ZOFRAN) injection intravenous, Administer over 2 Minutes, As needed, Starting on Sun07/23/18 at 1032, Anesthesia Intra-op Given 07/23/2018 10:32 AM CDT 4 mg phenylephrine (SAL-SYNEPHRINE) 1 mg/10 mL (100 mcg/mL) in sodium chloride 0.9% (premix) intravenous, As needed, Starting on Sun07/23/18 at 0753, Anesthesia Intra-op Given 07/23/2018 8:07 AM CDT 100 mcg Given 07/23/2018 7:53 AM CDT 100 mcg propofol (DIPRIVAN) IV intravenous, As needed, Starting on Sun07/23/18 at 0739, Anesthesia Intra-op Given 07/23/2018 7:39 AM CDT 150 mg rocuronium (ZEMURON) injection intravenous, As needed, Starting on Sun07/23/18 at 0745, Anesthesia Intra-op Given 07/23/2018 8:13 AM CDT 20 mg Given 07/23/2018 7:45 AM CDT 30 mg succinylcholine (ANECTINE) injection intravenous, As needed, Starting on Sun07/23/18 at 0740, Anesthesia Intra-op Given 07/23/2018 7:40 AM CDT 100 mg documented in this encounter Orders Procedures Count Last Ordered Date First Orde red Date Airway 1 07/23/2018 documented in this encounter Care Teams Industrial Ecologist Relationship Specialty Start Date End Date Jarred Rod MD PCP - General 09/16/16 documented as of this encounter
--- OUTSIDE RECORDS SUMMARY | 2024-03-02 22:17 | XMS_ITS | Encounter Summary ---
Author Organization [facility] Healthcare Address [address] [place] [address] Care Team Providers Care Hvac Estimator Name Role Phone Jarred Rod MD Primary Care Provider [phone]- [phone] Encounter Details Date Type Department Care Team (Late st Contact Info) Description 12/14/2019 10:30 PM CDT - 12/19/2019 3:50 PM CDT Hospital Encounter [facility] ADMIT Sofia Carter MD [address] [place] [address] Jose Franco MD [address] [place] [address] Discharge Disposition: Discharge to home or self care Social History Tobacco Use Types Packs/Day Years Used Date Smoking Tobacco: Never Alcohol Use Standard Drinks/Week Comments Not Currently 0 (1 standard drink = 0.6 oz pur e alcohol) Comments No Sex and Gender Information Value Date Recorded Sex Assigned at Not on file Legal Sex Female 10:55 AM [facility] Gender Identity Not on file Sexual Orientation Not on file documented as of this encounter Last Filed Vital Signs Vital Sign Reading Time Taken Comments Blood Pressure 133/84 12/16/2019 4:05 PM CDT Pulse 69 12/16/2019 4:05 PM CDT Temperature 36.8 ??C (98.2 ??F) 12/16/2019 4:05 PM CD T Respiratory Rate - - Oxygen Saturation 93% 12/16/2019 4:05 PM CDT Inhaled Oxygen Concentration - - Weight 89.3 kg (196 lb 12.8 oz) 12/16/2019 4:05 PM CDT Height 167.6 cm (5' 6 ) 12/16/2019 4:05 PM CDT Body Mass Index 31.76 12/16/2019 4:05 PM CDT documented in this encounter Medications at Time of Discharge aspirin 81 mg enteric coated tablet Take 1 tablet (81 mg total) by mouth daily 30 tablet 11 01/22/2019 dulaglutide (TRULICITY) 1.5 mg/0.5 mL pen injector [...] Date/Time Associated Diagnosis Comments SCAN - LABS 02/25/2020 12:00 AM [facility] CBC WITH AUTO DIFFERENTIAL Routine 12/19/2019 4:25 AM CDT MAGNESIUM Routine 12/19/2019 4:25 AM CDT COMPREHENSIVE METABOLIC PANEL Routine 12/19/2019 4:25 AM CDT CBC WITH AUTO DIFFERENTIAL Routine 12/18/2019 7:38 AM CDT MAGNESIUM Routine 12/18/2019 7:38 AM CDT COMPREHENSIVE METABOLIC PANEL Routine 12/18/2019 7:38 AM CDT CBC WITH AUTO DIFFERENTIAL Routine 12/17/2019 3:54 AM CDT MAGNESIUM Routine 12/17/2019 3:54 AM CDT RENAL FUNCTION PANEL Routine 12/17/2019 3:54 AM CDT VITAMIN B12 AND FOLATE Routine 0 4:41 AM CDT IRON PROFILE W/ IBC Routine 12/16/2019 4 :41 AM CDT VITAMIN D 25 HYDROXY Routine 12/16/2019 4:41 AM CDT MAGNESIUM Routine 12/16/2019 4:41 AM CDT FERRITIN Routine 12/16/2019 4:41 AM CDT COMPREHENSIVE METABOLIC PANEL Routine 12/16/2019 4:41 AM CDT CBC WITH AUTO DIFFERENTIAL Routine 12/16/2019 4:40 AM CDT CBC WITH AUTO DIFFERENTIAL Routine 12/15/2019 5:22 AM CDT BASIC METABOLIC PANEL Routine 12/15/2019 5:[address] STROKE PROTOCOL WO CONTRAST 12/15/2019 12:00 AM CDT HEMOGLOBIN A1C Routine 12/14/2019 5:17 AM CDT documented in this encounter Results * SCAN - LABS (02/25/2020 12:00 AM [facility]) Narrative 02/25/2020 12:00 AM [facility] Ordered by an unspecified provider. us Historical Provider Final Res ult * Magnesium (12/19/2019 4:25 AM CDT) Magnesium 1.6 1.6 - 2.6 mg/dL [facility] Comment: Magnesium sulfate therapy: ??3.0-9.1 mg/dL 12/19/2019 4:25 AM CDT 12/19/2019 5:14 AM CDT Narrative Resulting Agency Comment IN us Sofy Kowalski MD LAB BLOOD ORDER ROLF Final Result [facility] [address] [place] [address], [facility] [phone] * (ABNORMAL) Comprehensive metabolic panel (12/19/2019 4:25 AM CDT) Pathologist [facility] Sodium 139 135 - 145 mmol/L [facility] Potassium 4.2 3.3 - 5.1 mmol/L [facility] Chloride 103 96 - 108 mmol/L [facility] Carbon Dioxide 25 22 - 32 mmol/L [facility] Anion Gap 11 7 - 16 [facility] Glucose 253(H) 70 - 100 mg/dL [facility] BUN 15 8 - 25 mg/dL [facility] Creatinine 0.7 0.5 - 1.1 mg/dL [facility] Comment: NOTE: Estimated GFR (Cockroft-Gault) will NOT be calculated unless patient Height and Weight were entered. Also, Kidney Disease Stage (GFR) and Estimated GFR (Cockroft-Gault) will NOT be calculated if Creatinine result is <0.2. Kidney Disease Stage >90 mL/MIN [facility] Comment: NOTE; ??The GFR is an estimated [...] failure or on dialysis Est GFR (Cockcroft-G) 111 ml/MIN [facility] Comment: Estimated GFR(Cockroft-Gault)is used to calculate patient medication dosage Calcium 9.6 8.6 - 10.3 mg/dL [facility] Total Protein 8.0 6.4 - 8.3 g/dL [facility] Albumin 3.3(L) 3.5 - 5.0 g/dL [facility] Globulin 4.7(H) 2.3 - 3.5 gm/dL [facility] Albumin/Globulin Ratio 0.7(L) 1.1 - 1.8 [facility] Total Bilirubin 0.2 0.0 - 1.2 mg/dL [facility] AST 25 0 - 32 U/L [facility] ALT 19 0 - 33 U/L [facility] Alkaline Phosphatase 114(H) 35 - 104 U/L [facility] 12/19/2019 4:25 AM CDT 12/19/2019 5:14 AM CDT Narrative Resulting Agency Comment IN us Sofy Kowalski MD LAB BLOOD ORDER ROLF Final Result [facility] [address] [place] [address], [facility] [phone] * (ABNORMAL) CBC with auto differential (12/19/2019 4:25 AM CDT) WBC 8.1 3.8 - 9.9 X10 3/ul [facility] RBC 3.76(L) 3.90 - 5.20 x10 6/ul [facility] Hemoglobin 11.3(L) 11.9 - 15.5 g/dL [facility] Hct 33.5(L) 35.6 - 45.5 % [facility] MCV 89.1 81.3 - 96.4 fl [facility] MCH 30.1 27.1 - 33.3 pg [facility] MCHC 33.7 32.3 - 35.7 g/dl [facility] RDW 12.6 11.1 - 14.9 % [facility] Plt Count 303 150 - 400 x10 3/ul [facility] MPV 11.3 9.1 - 12.3 fl [facility] Neut % 71.7 % [facility] Immature Gran % 0.7 % [facility] Lymph % 20.8 % [facility] [place] % 6.7 % [facility] Eos % 0.0 % [facility] AUTO BASO % 0.1 % [facility] NEUTROPHIL ABS # 5.8 1.7 - 6.5 x10 3/ul [facility] Immature Gran # 0.1 0.0 - 0.1 x10 3/ul [facility] Absolute Lymphs (auto) 1.7 0.8 - 3.3 x10 3/ul [facility] Absolute Monos (auto) 0.5 0.2 - 0.8 x10 3/ul [facility] Absolute Eos (auto) 0.0 0.0 - 0.5 x10 3/ul [facility] BASOPHIL ABS # 0.0 0.0 - 0.1 x10 3/ul [facility] Nucleat RBC Rel Count 0.0 #/100WBC [facility] NRBC abs 0.00 0.00 - 0.01 x10 3/ul [facility] Absolute Neutrophils 5,800 200 - 8,000 /ul [facility] 12/19/2019 4:25 AM CDT 12/19/2019 5:14 AM CDT Narrative Resulting Agency Comment IN Sofy Kowalski MD LAB BLOOD ORDER ROLF Final Result Performing Organization Address City/[facility]/ZIP Co de Phone Number [address] [phone] * Magnesium (12/18/2019 7:38 AM CDT) Pathologist [facility] Magnesium 1.8 1.6 - 2.6 mg/dL [facility] Comment: Magnesium sulfate therapy: ??3.0-9.1 mg/dL 12/18/2019 7:38 AM CDT 12/18/2019 7:51 AM CDT Narrative Resulting Agency Comment IN Sofy Kowalski MD LAB BLOOD ORDER ROLF Final Result Performing Organization Address City/[facility] de Phone Number [address] [phone] * (ABNORMAL) Comprehensive metabolic panel (12/18/2019 7:38 AM CDT) Pathologist [facility] Sodium 141 135 - 145 mmol/L [facility] Potassium 4.3 3.3 - 5.1 mmol/L [facility] Chloride 107 96 - 108 mmol/L [facility] Carbon Dioxide 23 22 - 32 mmol/L [facility] Anion Gap 11 7 - 16 [facility] Glucose 211(H) 70 - 100 mg/dL [facility] BUN 14 8 - 25 mg/dL [facility] Creatinine 0.8 0.5 - 1.1 mg/dL [facility] Comment: NOTE: Estimated GFR (Cockroft-Gault) will NOT be calculated unless patient Height and Weight were entered. Also, Kidney Disease Stage (GFR) and Estimated GFR (Cockroft-Gault) will NOT be calculated if Creatinine result is <0.2. Kidney Disease Stage >90 mL/MIN [facility] Comment: NOTE; ??The GFR is an estimated [...] failure or on dialysis Est GFR (Cockcroft-G) 97 ml/MIN [facility] Comment: Estimated GFR(Cockroft-Gault)is used to calculate patient medication dosage Calcium 9.0 8.6 - 10.3 mg/dL [facility] Total Protein 7.3 6.4 - 8.3 g/dL [facility] Albumin 3.3(L) 3.5 - 5.0 g/dL [facility] Globulin 4.0(H) 2.3 - 3.5 gm/dL [facility] Albumin/Globulin Ratio 0.8(L) 1.1 - 1.8 [facility] Total Bilirubin <0.2 0.0 - 1.2 mg/dL [facility] AST 17 0 - 32 U/L [facility] ALT 16 0 - 33 U/L [facility] Alkaline Phosphatase 99 35 - 104 U/L [facility] 12/18/2019 7:38 AM CDT 12/18/2019 7:51 AM CDT Narrative Resulting Agency Comment IN us Sofy Kowalski MD LAB BLOOD ORDER ROLF Final Result [facility] [address] [place] [address], [facility] [phone] * (ABNORMAL) CBC with auto differential (12/18/2019 7:38 AM CDT) WBC 7.8 3.8 - 9.9 X10 3/ul [facility] Comment: Results reviewed RBC 3.81(L) 3.90 - 5.20 x10 6/ul [facility] Hemoglobin 11.4(L) 11.9 - 15.5 g/dL [facility] Hct 33.4(L) 35.6 - 45.5 % [facility] MCV 87.7 81.3 - 96.4 fl [facility] MCH 29.9 27.1 - 33.3 pg [facility] MCHC 34.1 32.3 - 35.7 g/dl [facility] RDW 13.0 11.1 - 14.9 % [facility] Plt Count 308 150 - 400 x10 3/ul [facility] MPV 10.7 9.1 - 12.3 fl [facility] Neut % 72.7 % [facility] Immature Gran % 0.4 % [facility] Lymph % 21.2 % [facility] [place] % 5.7 % [facility] Eos % 0.0 % [facility] AUTO BASO % 0.0 % [facility] NEUTROPHIL ABS # 5.6 1.7 - 6.5 x10 3/ul [facility] Immature Gran # 0.0 0.0 - 0.1 x10 3/ul [facility] Absolute Lymphs (auto) 1.6 0.8 - 3.3 x10 3/ul [facility] Absolute Monos (auto) 0.4 0.2 - 0.8 x10 3/ul [facility] Absolute Eos (auto) 0.0 0.0 - 0.5 x10 3/ul [facility] BASOPHIL ABS # 0.0 0.0 - 0.1 x10 3/ul [facility] Nucleat RBC Rel Count 0.0 #/100WBC [facility] NRBC abs 0.00 0.00 - 0.01 x10 3/ul [facility] Absolute Neutrophils 5,600 200 - 8,000 /ul [facility] 12/18/2019 7:38 AM CDT 12/18/2019 7:51 AM CDT Narrative Resulting Agency Comment IN Sofy Kowalski MD LAB BLOOD ORDER ROLF Final Result [address] [phone] * Magnesium (12/17/2019 3:54 AM CDT) [facility] Magnesium 2.0 1.6 - 2.6 mg/dL [facility] Comment: Results reviewed Magnesium sulfate therapy: ??3.0-9.1 mg/dL 12/17/2019 3:54 AM CDT 12/17/2019 5:09 AM CDT Narrative Resulting Agency Comment IN Sofy Kowalski MD LAB BLOOD ORDER ROLF Final Result [address] [phone] * (ABNORMAL) Renal function panel (12/17/2019 3:54 AM CDT) Pathologist [facility] Sodium 135 135 - 145 mmol/L [facility] Potassium 4.5 3.3 - 5.1 mmol/L [facility] Chloride 101 96 - 108 mmol/L [facility] Carbon Dioxide 23 22 - 32 mmol/L [facility] Anion Gap 11 7 - 16 [facility] Glucose 308(H) 70 - 100 mg/dL [facility] Comment: Results reviewed BUN 14 8 - 25 mg/dL [facility] Creatinine 0.8 0.5 - 1.1 mg/dL [facility] Comment: NOTE: Estimated GFR (Cockroft-Gault) will NOT be calculated unless patient Height and Weight were entered. Also, Kidney Disease Stage (GFR) and Estimated GFR (Cockroft-Gault) will NOT be calculated if Creatinine result is <0.2. Kidney Disease Stage >90 mL/MIN [facility] Comment: NOTE; ??The GFR is an estimated [...] failure or on dialysis Est GFR (Cockcroft-G) 97 ml/MIN [facility] Comment: Estimated GFR(Cockroft-Gault)is used to calculate patient medication dosage Calcium 8.3(L) 8.6 - 10.3 mg/dL [facility] Albumin 3.1(L) 3.5 - 5.0 g/dL [facility] Phosphorus 2.6 2.3 - 4.5 mg/dL [facility] 12/17/2019 3:54 AM CDT 12/17/2019 5:09 AM CDT Narrative Resulting Agency Comment IN Sofy Kowalski MD LAB BLOOD ORDER ROLF Edited Result - Final [facility] [address] [place] [address], [facility] [phone] * (ABNORMAL) CBC with auto differential (12/17/2019 3:54 AM CDT) WBC 5.7 3.8 - 9.9 X10 3/ul [facility] RBC 3.62(L) 3.90 - 5.20 x10 6/ul [facility] Hemoglobin 11.1(L) 11.9 - 15.5 g/dL [facility] Hct 32.4(L) 35.6 - 45.5 % [facility] MCV 89.5 81.3 - 96.4 fl [facility] MCH 30.7 27.1 - 33.3 pg [facility] MCHC 34.3 32.3 - 35.7 g/dl [facility] RDW 12.8 11.1 - 14.9 % [facility] Plt Count 228 150 - 400 x10 3/ul [facility] MPV 11.3 9.1 - 12.3 fl [facility] Neut % 72.7 % [facility] Immature Gran % 0.3 % [facility] Lymph % 22.5 % [facility] [place] % 4.5 % [facility] Eos % 0.0 % [facility] AUTO BASO % 0.0 % [facility] NEUTROPHIL ABS # 4.2 1.7 - 6.5 x10 3/ul [facility] Immature Gran # 0.0 0.0 - 0.1 x10 3/ul [facility] Absolute Lymphs (auto) 1.3 0.8 - 3.3 x10 3/ul [facility] Absolute Monos (auto) 0.3 0.2 - 0.8 x10 3/ul [facility] Absolute Eos (auto) 0.0 0.0 - 0.5 x10 3/ul [facility] BASOPHIL ABS # 0.0 0.0 - 0.1 x10 3/ul [facility] Nucleat RBC Rel Count 0.0 #/100WBC [facility] NRBC abs 0.00 0.00 - 0.01 x10 3/ul [facility] Absolute Neutrophils 4,200 200 - 8,000 /ul [facility] 12/17/2019 3:54 AM CDT 12/17/2019 5:09 AM CDT Narrative Resulting Agency Comment IN us Sofy Kowalski MD LAB BLOOD ORDER ROLF Final Result [address] [phone] * (ABNORMAL) Ferritin (12/16/2019 4:41 AM CDT) [facility] Ferritin 288.4(H) 15.0 - 150.0 ng/mL [facility] 12/16/2019 4:41 AM CDT 12/16/2019 4:54 AM CDT Narrative Resulting Agency Comment IN Oj Pérez MD LAB BLOOD ORDERABLES Final R esult [address] [phone] * (ABNORMAL) Vitamin D 25 hydroxy (12/16/2019 4:41 AM CDT) 25-OH Vitamin D Total 17(L) 30 - 80 ng/mL [facility] 25-OH Vitamin D Total 17(L) 30 - 80 ng/mL [facility] 12/16/2019 4:41 AM CDT 12/16/2019 4:54 AM CDT Narrative Resulting Agency Comment IN Oj Pérez MD LAB BLOOD ORDERABLES Final R esult Performing Organization Address [facility] Co de Phone Number [address] [phone] * Vitamin B12 and Folate (12/16/2019 4:41 AM CDT) Pathologist [facility] Vitamin B12 1,103 230 - 1,250 pg/mL [facility] Folate 16.7 ng/mL [facility] Comment: Reference Range ??> 5.0 ng/mL Folate has been standardized against the WHO International Standard [facility] code: 03/178 12/16/2019 4:41 AM CDT 12/16/2019 4:54 AM CDT Narrative Resulting Agency Comment IN Oj Pérez MD LAB BLOOD ORDERABLES Final R esult Performing Organization Address [facility] [place] [address], [facility] [phone] * (ABNORMAL) Iron profile w/ IBC (12/16/2019 4:41 AM CDT) Iron 22(L) 37 - 145 ug/dL [facility] TIBC 168(L) 228 - 428 ug/dL [facility] Transferrin % Sat 13(L) 20 - 50 % [facility] 12/16/2019 4:41 AM CDT 12/16/2019 4:54 AM CDT Narrative Resulting Agency Comment IN Oj Pérez MD LAB BLOOD ORDERABLES Final R esult Performing Organization Address [facility] Co de Phone Number [facility] [address] [place] [address], [facility] [phone] * (ABNORMAL) Magnesium (12/16/2019 4:41 AM CDT) Magnesium 1.3(L) 1.6 - 2.6 mg/dL [facility] Comment: Magnesium sulfate therapy: ??3.0-9.1 mg/dL 12/16/2019 4:41 AM CDT 12/16/2019 4:54 AM CDT Narrative Resulting Agency Comment IN Oj Pérez MD LAB BLOOD ORDERABLES Final R [facility] Performing Organization Address [facility] [place] [address], [facility] [phone] * (ABNORMAL) Comprehensive metabolic panel (12/16/2019 4:41 AM CDT) Sodium 135 135 - 145 mmol/L [facility] Potassium 4.0 3.3 - 5.1 mmol/L [facility] Chloride 103 96 - 108 mmol/L [facility] Carbon Dioxide 25 22 - 32 mmol/L [facility] Anion Gap 7 7 - 16 [facility] Glucose 120(H) 70 - 100 mg/dL [facility] BUN 10 8 - 25 mg/dL [facility] Creatinine 0.8 0.5 - 1.1 mg/dL [facility] Comment: NOTE: Estimated GFR (Cockroft-Gault) will NOT be calculated unless patient Height and Weight were entered. Also, Kidney Disease Stage (GFR) and Estimated GFR (Cockroft-Gault) will NOT be calculated if Creatinine result is <0.2. Kidney Disease Stage >90 mL/MIN [facility] Comment: NOTE; ??The GFR is an estimated [...] failure or on dialysis Est GFR (Cockcroft-G) 97 ml/MIN [facility] Comment: Estimated GFR(Cockroft-Gault)is used to calculate patient medication dosage Calcium 7.6(L) 8.6 - 10.3 mg/dL [facility] Total Protein 6.9 6.4 - 8.3 g/dL [facility] Albumin 3.2(L) 3.5 - 5.0 g/dL [facility] Globulin 3.7(H) 2.3 - 3.5 gm/dL [facility] Albumin/Globulin Ratio 0.9(L) 1.1 - 1.8 [facility] Total Bilirubin 0.3 0.0 - 1.2 mg/dL [facility] AST 20 0 - 32 U/L [facility] ALT 18 0 - 33 U/L [facility] Alkaline Phosphatase 90 35 - 104 U/L [facility] 12/16/2019 4:41 AM CDT 12/16/2019 4:54 AM CDT Narrative Resulting Agency Comment IN us Oj Pérez MD LAB BLOOD ORDERABLES Edited Result - Final [facility] [address] [place] [address], [facility] [phone] * (ABNORMAL) CBC with auto differential (12/16/2019 4:40 AM CDT) WBC 6.3 3.8 - 9.9 X10 3/ul [facility] RBC 3.26(L) 3.90 - 5.20 x10 6/ul [facility] Hemoglobin 9.9(L) 11.9 - 15.5 g/dL [facility] Hct 29.5(L) 35.6 - 45.5 % [facility] MCV 90.5 81.3 - 96.4 fl [facility] MCH 30.4 27.1 - 33.3 pg [facility] MCHC 33.6 32.3 - 35.7 g/dl [facility] RDW 12.8 11.1 - 14.9 % [facility] Plt Count 207 150 - 400 x10 3/ul [facility] MPV 10.8 9.1 - 12.3 fl [facility] Neut % 68.7 % [facility] Immature Gran % 0.2 % [facility] Lymph % 26.4 % [facility] [place] % 4.5 % [facility] Eos % 0.0 % [facility] AUTO BASO % 0.2 % [facility] NEUTROPHIL ABS # 4.3 1.7 - 6.5 x10 3/ul [facility] Immature Gran # 0.0 0.0 - 0.1 x10 3/ul [facility] Absolute Lymphs (auto) 1.7 0.8 - 3.3 x10 3/ul [facility] Absolute Monos (auto) 0.3 0.2 - 0.8 x10 3/ul [facility] Absolute Eos (auto) 0.0 0.0 - 0.5 x10 3/ul [facility] BASOPHIL ABS # 0.0 0.0 - 0.1 x10 3/ul [facility] Nucleat RBC Rel Count 0.0 #/100WBC [facility] NRBC abs 0.00 0.00 - 0.01 x10 3/ul [facility] Absolute Neutrophils 4,300 200 - 8,000 /ul [facility] 12/16/2019 4:40 AM CDT 12/16/2019 4:54 AM CDT Narrative Resulting Agency Comment IN us Oj Pérez MD LAB BLOOD ORDERABLES Final R esult [facility] [address] [place] [address], [facility] [phone] * (ABNORMAL) Basic metabolic panel (12/15/2019 5:22 AM CDT) Sodium 136 135 - 145 mmol/L [facility] Potassium 3.7 3.3 - 5.1 mmol/L [facility] Chloride 101 96 - 108 mmol/L [facility] Carbon Dioxide 24 22 - 32 mmol/L [facility] Anion Gap 11 7 - 16 [facility] Glucose 154(H) 70 - 100 mg/dL [facility] BUN 16 8 - 25 mg/dL [facility] Creatinine 0.9 0.5 - 1.1 mg/dL [facility] Comment: NOTE: Estimated GFR (Cockroft-Gault) will NOT be calculated unless patient Height and Weight were entered. Also, Kidney Disease Stage (GFR) and Estimated GFR (Cockroft-Gault) will NOT be calculated if Creatinine result is <0.2. Kidney Disease Stage 86 mL/MIN [facility] Comment: NOTE; ??The GFR is an estimated [...] failure or on dialysis Est GFR (Cockcroft-G) 86 ml/MIN [facility] Comment: Estimated GFR(Cockroft-Gault)is used to calculate patient medication dosage Calcium 8.6 8.6 - 10.3 mg/dL [facility] 12/15/2019 5:22 AM CDT 12/15/2019 5:34 AM CDT Narrative Resulting Agency Comment IN Jose Franco MD LAB BLOOD ORDERABLES Final Result [facility] [address] [place] [address], [facility] [phone] * (ABNORMAL) CBC with auto differential (12/15/2019 5:22 AM CDT) WBC 5.9 3.8 - 9.9 X10 3/ul [facility] RBC 3.44(L) 3.90 - 5.20 x10 6/ul [facility] Hemoglobin 10.5(L) 11.9 - 15.5 g/dL [facility] Hct 30.8(L) 35.6 - 45.5 % [facility] MCV 89.5 81.3 - 96.4 fl [facility] MCH 30.5 27.1 - 33.3 pg [facility] MCHC 34.1 32.3 - 35.7 g/dl [facility] RDW 13.1 11.1 - 14.9 % [facility] Plt Count 193 150 - 400 x10 3/ul [facility] MPV 10.9 9.1 - 12.3 fl [facility] Neut % 51.3 % [facility] Immature Gran % 0.3 % [facility] Lymph % 39.7 % [facility] [place] % 6.9 % [facility] Eos % 1.5 % [facility] AUTO BASO % 0.3 % [facility] NEUTROPHIL ABS # 3.0 1.7 - 6.5 x10 3/ul [facility] Immature Gran # 0.0 0.0 - 0.1 x10 3/ul [facility] Absolute Lymphs (auto) 2.4 0.8 - 3.3 x10 3/ul [facility] Absolute Monos (auto) 0.4 0.2 - 0.8 x10 3/ul [facility] Absolute Eos (auto) 0.1 0.0 - 0.5 x10 3/ul [facility] BASOPHIL ABS # 0.0 0.0 - 0.1 x10 3/ul [facility] Nucleat RBC Rel Count 0.0 #/100WBC [facility] NRBC abs 0.00 0.00 - 0.01 x10 3/ul [facility] Absolute Neutrophils 3,000 200 - 8,000 /ul [facility] 12/15/2019 5:22 AM CDT 12/15/2019 5:34 AM CDT Narrative Resulting Agency Comment IN us Jose Franco MD LAB BLOOD ORDERABLES Final Result [facility] [address] [place] [address], [facility] [phone] * CT Stroke Head WO Contrast (12/15/2019 12:00 AM CDT) Anatomical Region Laterality Modality Head N/A Computed Tomogra phy 12/15/2019 3:00 PM CDT Narrative 12/15/2019 3:08 PM CDT Patient Name: LENA YOUNGBLOOD ?Ordering Dr: Oj Pérez MD ?? D.O.B: 1970 ? Exam Date: 12/15/19 ?? 0000 ?? Age: 49 ?Sex: Female ? MR#: [id number] ?? Loc: ??[id number] ? RADIOLOGY REPORT ?? Order #[id number] ?? CT Scan ? CT Head WO IV Cont Stroke ? Signed ?? EXAM DESCRIPTION: ?? CT Head WO IV Cont Stroke ? REASON FOR STUDY: ?? Left leg weakness starting today. ??COVID-19 infection. ? TECHNIQUE: ??Axial images acquired through the brain without intravenous ?? contrast. ??Images stored on PACS. ?? Automated exposure control was used as a ?? dose optimization technique for this examination. ? COMPARISON: ?? 10/07/2013 ? FINDINGS: ?BRAIN: No acute intracranial hemorrhage or mass effect. ??Periventricular and ?? subcortical white matter hypodensities, nonspecific but likely reflecting ?? sequela of chronic microvascular angiopathy. ? EXTRA-AXIAL SPACES: No fluid collections. ? CALVARIUM: No acute fracture. ? SINUSES/MASTOIDS: Mild bilateral ethmoid sinus mucosal thickening. ? ORBITS: Collapsed right globe posterior chamber with calcifications. ??Normal ?? left globe/orbit. ? IMPRESSION: ? 1. ??No acute intracranial hemorrhage or mass effect. ? 2. ?? Sequela of chronic microvascular angiopathy. ? 3. ??Collapse/shrunken right globe with calcifications along the posterior ?? chamber. 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 ? Clinical correlation is recommended. ? THIS IS AN ELECTRONICALLY VERIFIED FINAL REPORT ?? 12/15/2019 3:08 PM - Electronically signed by Tre Langston M.D. ?? Tre Langston M.D. ? JAVON ?? D: ??12/15/2019 3:08 PM ?? T: ? Report ID: [id number] ?? Reading Location: ??[id number] ? REPORT ELECTRONICALLY SIGNED IN OTHER VENDOR SYSTEM ?? Resulting Agency Comment I Procedure Note Tre Langston MD - 12/15/2019 Patient Name: FORDLENA SERRANO Dr: Oj Pérez MD D.O.B: 1970 Exam Date: 12/15/19 0000 Age: 49 Sex: Female MR#: [id number] Loc: [id number] RADIOLOGY REPORT Order #[id number] CT Scan CT Head WO IV Cont Stroke Signed EXAM DESCRIPTION: CT Head WO IV Cont Stroke REASON FOR STUDY: Left leg weakness starting today. COVID-19infection. TECHNIQUE: Axial images acquired through the brain without intravenous contrast. Images stored on PACS. Automated exposure control was usedas a dose optimization technique for this examination. COMPARISON: 10/07/2013 FINDINGS: BRAIN: No acute intracranial hemorrhage or mass effect. Periventricularand subcortical white matter hypodensities, nonspecific but likely reflecting sequela of chronic microvascular angiopathy. EXTRA-AXIAL SPACES: No fluid collections. CALVARIUM: No acute fracture. SINUSES/MASTOIDS: Mild bilateral ethmoid sinus mucosal thickening. ORBITS: Collapsed right globe posterior chamber with calcifications.Normal left globe/orbit. IMPRESSION: 1. No acute intracranial hemorrhage or mass effect. 2. Sequela of chronic microvascular angiopathy. 3. Collapse/shrunken right globe with calcifications along the posterior chamber. 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 Clinical correlation is recommended. THIS IS AN ELECTRONICALLY VERIFIED FINAL REPORT 12/15/2019 3:08 PM - Electronically signed by Tre Langston M.D. JAVON T: Report ID: [id number] Reading Location: [place] [id number] REPORT ELECTRONICALLY SIGNED IN OTHER VENDOR SYSTEM Oj Pérez MD IMG CT PROCEDURES Final Resu lt * (ABNORMAL) Hemoglobin A1c (12/14/2019 5:17 AM CDT) Hemoglobin A1c % 8.2(H) 4.0 - 5.6 % [facility] Comment: ADA 2016 GUIDELINES: ??Initial Diagnostic Criteria ? HbA1c Result: ?Interpretation: ?<5.7% ? Normal ?5.7-6.4% ?At risk for diabetes mellitus ?>=6.5% ?Consistent with diabetes mellitus ??Diabetes monitoring ? Target value (ADA Recommended) ?? <7% 12/14/2019 5:17 AM CDT 12/15/2019 6:07 AM CDT Narrative Resulting Agency Comment IN us Sofia Carter MD LAB BLOOD ORDERABLES Final Result Performing Organization Address City/State/[facility] Co de Phone Number [address] [phone] documented in this encounter Visit Diagnoses Not on filedocumented in this encounter Additional Health Concerns Infection Onset Date Last Indicated Resolved Time COVID19 Comment:12/15/2019 12/14/2019 12/13/2019 documented as of this encounter Care Teams Hvac Estimator Relationship Specialty Start Date End Date Jarred Rod MD PCP - General 09/16/16 documented as of this encounter
--- OUTSIDE RECORDS SUMMARY | 2024-03-02 22:17 | XMS_ITS | Encounter Summary ---
Author Organization [facility] Healthcare Address [address] [place] [id number] Care Team Providers Care Painter Mirror Name Role Phone Jarred Rod MD Primary Care Provider [phone] Reason for Referral * MRI/CAT/PET Scan (Routine) - Closed Specialty Diagnoses / Procedures Referred By Contac t Referred To Contact Radiology Diagnoses Chest pain, unspecified type Hypertension, unspecified type Procedures CT Heart Morphology And Coronary Arteries W Contrast Lio Fonseca MD [address] [address] Phone: tel: fax: [address] [address] Referral ID Status Reason Start Date Expiration Date Visits Re quested Visits Authorized [id number] Closed 07/20/2020 08/19/2021 1 1 Reason for Visit * MRI/CAT/PET Scan (Routine) - Closed Specialty Diagnoses / Procedures Referred By Contac t Referred To Contact Radiology Diagnoses Chest pain, unspecified type Hypertension, unspecified type Procedures CT Heart Morphology And Coronary Arteries W Contrast Lio Fonseca MD [address] [facility] [address] [place] [address] Phone: tel: fax: [address] [phone] Referral ID Status Reason Start Date Expiration Date Visits Re quested Visits Authorized [id number] Closed 07/20/2020 08/19/2021 1 1 Encounter Details Date Type Department Care Team (Latest Contact Info) Description 07/27/2020 8:02 AM CDT - 07/27/2020 11:59 PM CDT Hospital Encounter 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 Gender Identity Not on file Sexual Orientation Not on file documented as of this encounter Medications at Time of Discharge docusate sodium (DOK) 100 mg tabletIndications :constipation Take 100 mg by mouth 2 (two) times a day as needed dulaglutide (TRULICITY) 1.5 mg/0.5 mL pen injector Inject 1.5 mg under the skin every 7 days famotidine (PEPCID) 10 mg tablet Take 10 mg by mouth 2 (two) times a day as needed hydroCHLOROthiazi de (HYDRODIURIL) 25 mg tablet Take 25 mg by mouth daily insulin lispro protamin-insulin lispro (HumaLOG 75/25) 100 unit/mL (75-25) suspension Inject 65 Units under the skin every morning insulin lispro protamin-insulin lispro (HumaLOG 75/25) 100 unit/mL (75-25) suspension Inject 55 Units under the skin nightly lisinopril (PRINIVIL,ZESTRIL ) 40 mg tablet Take 40 mg by mouth nightly metoprolol (LOPRESSOR) 50 mg tablet Take 50 mg by mouth 2 (two) times a day nitrofurantoin (MACRODANTIN) 50 mg capsule Take 50 mg by mouth as needed Take one tablet the same day or early the day after you have intercourse. 07/14/2020 nitroglycerin (NITROSTAT) 0.[address] 1 tablet (0.4 mg total) under the tongue every 5 (five) minutes as needed for chest pain May repeat dose q 5 min, up to 3 doses total 90 tablet 3 07/07/2020 simvastatin (ZOCOR) 40 mg tablet Take 40 mg by mouth nightly documented as of this encounter Discharge Disposition Disposition Code Departure Means Destination Discharge to home or self care documented in this encounter Plan of Treatment Not on file documented as of this encounter Procedures Procedure Name Priority Date/Time Associated Diagnosis Comments CT HEART MORPHOLOGY AND CORONARY ARTERIES W CONTRAST Schedule Routine, Read Routine (OP Routine) 07/27/2020 9:42 AM CDT Chest pain, unspecified type Hypertension, unspecified type POCT CREATININE - DEVICE Routine 07/27/2020 8:32 AM CDT documented in this encounter Results * CT Heart Morphology [...] Fonseca MD IMG CT PROCEDURES Final Result * POCT creatinine (07/27/2020 8:32 AM CDT) Creatinine POC 1.0 0.6 - 1.1 mg/dL [facility] [place] Blood specimen (specimen) 07/27/2020 8:32 AM CDT 07/27/2020 8:32 AM CDT Lio Fonseca MD LAB POCT ORDERABLES - DEVICE Fin al Result [facility] [place] [address] documented in this encounter Visit Diagnoses Diagnosis Chest pain, unspecified type Hypertension, unspecified type documented in this encounter Administered Medications Inactive Administered Medications - up to 3 most recent administrations Medication Order MAR Action Action Date Dose Rate Site ioversoL (OPTIRAY 350) syringe syringe 100 mL 100 mL, intravenous, Once in imaging, contrast, Starting on Sun07/27/20 at 0942, For 1 dose Contrast Given 07/27/2020 9:42 AM CDT 100 mL metoprolol (LOPRESSOR) injection Administer over 1 Minutes, Code/trauma/sedation medication, Starting on Sun07/27/20 at 0912 Given 07/27/2020 9:16 AM CDT 10 mg Left Antecubital Given 07/27/2020 9:12 AM CDT 10 mg Le ft Antecubital documented in this encounter Additional Health Concerns Infection Onset Date Last Indicated Resolved Time COVID19 Comment:12/15/2019 12/14/2019 12/13/2019 documented as of this encounter Care Teams Painter Mirror Relationship Specialty Start Date End Date Jarred Rod MD PCP - General 09/16/16 documented as of this encounter
--- OUTSIDE RECORDS SUMMARY | 2024-03-02 22:17 | XMS_ITS | Encounter Summary ---
Author Organization [facility] Healthcare Address [address] [place] [address] Care Team Providers Care Tool Procurement Coordinator Name Role Phone Juan Luevano MD Primary Care Provider [phone] Encounter Details Date Type Department Care Team (Late st Contact Info) Description 07/14/2016 9:45 AM CDT - 07/19/2016 9:45 AM CDT Hospital Encounter [facility] Jarred Rod MD [address] [place] [id number] Low back pain; Encounter for other orthopedic aftercare Social History Tobacco Use Types Packs/Day Years Used Date Smoking Tobacco: Never Assessed Comments Unknown Sex and Gender Information Value Date Recorded Sex Assigned at Not on file 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
--- OUTSIDE RECORDS SUMMARY | 2024-03-02 22:17 | XMS_ITS | Encounter Summary ---
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 insulin (CMS/HCC); Other penitentiary (current) drug therapy Social History Tobacco Use Types Packs/Day Years Used Date Smoking Tobacco: Never Assessed Comments Unknown Sex and Gender Information Value Date Recorded Sex Assigned at Not on file 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 Gender Identity Not on file Sexual Orientation Not on file documented as of this encounter Last Filed Vital Signs Vital Sign Reading Time Taken Comments Blood Pressure 106/64 09/14/2015 7:59 PM CDT Pulse 96 09/14/2015 7:59 PM CDT Temperature 37.2 ??C (99 ??F) 09/14/2015 7:59 PM CDT Respiratory Rate - - Oxygen Saturation 96% 09/14/2015 7:59 PM CDT Inhaled Oxygen Concentration - - Weight 87.1 kg (192 lb) 09/14/2015 7:59 PM CDT Height 167.6 cm (5' 6 ) 09/14/2015 7:59 PM CDT Body Mass Index 30.99 09/14/2015 7:59 PM CDT documented in this encounter Plan of Treatment Not on file documented as of this encounter Procedures Procedure Name Priority Date/Time Associated Diagnosis Comments URINALYSIS AND REFLEX TO MICROSCOPIC AND CULTURE Routine 09/14/2015 10:40 PM CDT CBC WITH AUTO DIFFERENTIAL Routine 09/14/2015 8:38 PM CDT TROPONIN I Routine 09/14/2015 8:38 PM CDT MAGNESIUM Routine 09/14/2015 8:38 PM CDT LIPASE Routine 09/14/2015 8:38 PM CDT COMPREHENSIVE METABOLIC PANEL Routine 09/14/2015 8:38 PM CDT XR CHEST PA LATERAL 2 VIEWS Routine 09/14/2015 12:00 AM CDT documented in this encounter Results * (ABNORMAL) Urinalysis reflex to microscopic and culture (09/14/2015 10:40 PM CDT) Ur Collection Type CLEAN CATCH Ur Culture Indicated? C&S NOT INDICATED Urine Color YELLOW YELLOW Urine Clarity CLEAR CLEAR Urine Glucose (UA) >=500 NORMAL mg/dL Urine Bilirubin NEGATIVE NEGATIVE mg/dl Urine Ketones NEGATIVE NEGATIVE mg/dL Ur Specific [place] 1.012 1.005 - 1.025 Urine Blood NEGATIVE NEGATIVE mg/dl Urine pH 6.0 5.0 - 8.0 Urine Protein 30(H) NEGATIVE mg/dL Urine Urobilinogen NORMAL NORMAL mg/dL Urine Nitrite NEGATIVE NEGATIVE Ur Leukocyte Esterase NEGATIVE NEGATIVE Benedicto/ul Ur Microscopic Review Indicated or Ordered Urine RBC 2 0 - 2 /HPF Urine WBC <1 0 - 2 /HPF Urine Mucus RARE /LPF Ur Squamous Epith Cells Rare /HPF 09/14/2015 10:4 0 PM CDT 09/14/2015 10:[address] [facility] HISTORICAL RESULTS - 09/14/2015 11:01 PM CDT Chris Rodriguez DO LAB MICROBIOLOGY - GENERAL ORDERABLES Final Result [facility] HISTORICAL RESULTS * Magnesium (09/14/2015 8:38 PM CDT) Magnesium 1.6 1.6 - 2.6 mg/dL 09/14/2015 9:[address] [facility] HISTORICAL RESULTS Comment:Magnesium sulfate th erapy: 3.0-9.1 mg/dL 09/14/2015 8:38 PM CDT 09/14/2015 8:41 PM CDT Janneth Kimbrough LAB BLOOD ORDERABLES Final Resul t [facility] HISTORICAL RESULTS * Lipase (09/14/2015 8:38 PM CDT) Pathologist [facility] Lipase 22 13 - 60 U/L 09/14/2015 9:[address] [facility] HISTORICAL RESULTS 09/14/2015 8:38 PM CDT 09/14/2015 8:41 PM CDT [facility] LAB BLOOD ORDERABLES Final Resul t Performing Organization Address [facility] de Phone Number [facility] HISTORICAL RESULTS * Troponin I (09/14/2015 8:38 PM CDT) Pathologist [facility] Troponin I < 0.300 0.000 - 0.300 ng/mL 09/14/2015 9:[address] [facility] HISTORICAL RESULTS Comment: Reference using GREGORY Chemiluminescence ? Negative: Repeat in 4-6 hours as indicated. 09/14/2015 8:38 PM CDT 09/14/2015 8:41 PM CDT Janneth M. Kaylan LAB BLOOD ORDERABLES Final Resul t Performing Organization Address [facility] de Phone Number [facility] HISTORICAL RESULTS * (ABNORMAL) Comprehensive metabolic panel (09/14/2015 8:38 PM CDT) Pathologist [facility] Sodium 140 135 - 145 mmol/L Potassium 4.0 3.3 - 5.1 mmol/L Chloride 98 96 - 108 mmol/L 09/14/2015 9:[address] [facility] HISTORICAL RESULTS Carbon Dioxide 27 22 - 32 mmol/L 09/14/2015 9:[address] [facility] HISTORICAL RESULTS Anion Gap 15 7 - 16 Glucose 176(H) 70 - 100 mg/dL 09/14/2015 9:[address] [facility] HISTORICAL RESULTS BUN 19 6 - 20 mg/dL Creatinine 0.8 0.5 - 1.1 mg/dL Comment: NOTE: Estimated GFR (Cockroft-Gault) will NOT be calculated unless patient Height and Weight were entered. Also, Kidney Disease Stage (GFR) and Estimated GFR (Cockroft-Gault) will NOT be calculated if Creatinine result is <0.2. Kidney Disease Stage > 90 mL/MIN Comment: NOTE; ??The GFR is an estimated value using the creatinine, sex, age, and race of the patient. THE ESTIMATED GFR IS VALIDATED FOR AGES 18-70 YEARS STAGE ?mL/Min ?DESCRIPTION ??1 ?90 mL/min or more ?Normal or elevated GFR ??2 ? 60-89 mL/min ?Mildly decreased GFR ??3 ? 30-59 mL/min ?Moderately decreased GFR ??4 ? 15-29 mL/min ?Severely decreased GFR ??5 ? <15 mL/min ? Kidney failure or on dialysis @ Est GFR (Cockcroft-G) 100 ml/MIN Calcium 9.7 8.6 - 10.0 mg/dL Total Protein 8.5(H) 6.4 - 8.3 g/dL Albumin 4.0 3.5 - 5.2 g/dL Globulin 4.5(H) 2.3 - 3.5 gm/dL 09/14/2015 9:[address] [facility] HISTORICAL RESULTS Albumin/Globulin Ratio 0.9(L) 1.1 - 1.8 09/14/2015 9:[address] [facility] HISTORICAL RESULTS Total Bilirubin 0.3 0.0 - 1.2 mg/dL 09/14/2015 9:[address] [facility] HISTORICAL RESULTS AST 20 0 - 32 U/L 09/14/2015 9:[address] [facility] HISTORICAL RESULTS ALT 23 0 - 33 U/L 09/14/2015 9:[address] [facility] HISTORICAL RESULTS Alkaline Phosphatase 120(H) 35 - 104 U/L 09/14/2015 9:[address] [facility] HISTORICAL RESULTS 09/14/2015 8:38 PM CDT 09/14/2015 8:41 PM CDT Janneth Kimbrough LAB BLOOD ORDERABLES Final Resul t [facility] HISTORICAL RESULTS * (ABNORMAL) CBC with auto differential (09/14/2015 8:38 PM CDT) WBC 7.7 4.6 - 10.2 x10 3/ul 09/14/2015 8:[address] [facility] HISTORICAL RESULTS RBC 3.91 3.76 - 4.80 x10 6/ul 09/14/2015 8:[address] [facility] HISTORICAL RESULTS Hemoglobin 12.2 11.0 - 15.0 g/dl 09/14/2015 8:[address] [facility] HISTORICAL RESULTS Hct 35.0 33.0 - 43.0 % 09/14/2015 8:[address] [facility] HISTORICAL RESULTS MCV 89.5 80.0 - 97.0 fl 09/14/2015 8:[address] [facility] HISTORICAL RESULTS MCH 31.2 27.0 - 31.2 pg 09/14/2015 8:[address] [facility] HISTORICAL RESULTS MCHC 34.9 31.8 - 35.4 g/dl 09/14/2015 8:[address] [facility] HISTORICAL RESULTS RDW 13.0 11.6 - 14.8 % Plt Count 250 124 - 400 x10 3/ul MPV 10.7(H) 7.4 - 10.4 fl Neut % 58.3 37.0 - 85.0 % Immature Gran % 0.3 0.0 - 3.0 % Lymph % 31.6 5.0 - 45.0 % Roosevelt % 7.9 3.0 - 15.0 % Eos % 1.3 0.0 - 7.0 % Baso % 0.6 0.0 - 2.0 % Absolute Neuts (auto) 4.5 1.7 - 8.7 x10 3/ul Immature Gran # 0.0 0.0 - 0.3 x10 3/ul Absolute Lymphs (auto) 2.4 0.2 - 4.6 x10 3/ul Absolute Monos (auto) 0.6 0.1 - 1.5 x10 3/ul Absolute Eos (auto) 0.1 0.0 - 0.7 x10 3/ul Absolute Basos (auto) 0.1 0.0 - 0.2 x10 3/ul 09/14/2015 8:38 PM CDT 09/14/2015 8:41 PM CDT Janneth Kimbrough LAB BLOOD ORDERABLES Final Resul t [facility] HISTORICAL RESULTS * XR Chest Pa Lateral 2 Views (09/14/2015 12:00 AM CDT) Anatomical Region Laterality Modality Body, Chest N/A Radiographic Shelli ging 09/14/2015 Impressions 09/14/2015 8:30 PM CDT ?? 1. ??No acute infiltrate. THIS IS AN ELECTRONICALLY VERIFIED REPORT 09/14/2015 8:26 PM: ??Carroll Hodges M.D. ?? Carroll Hodges M.D. MJ:tho 08:26 PM 08:26 PM BM [EOD] Narrative 09/14/2015 8:30 PM CDT EXAMINATION: ??PA and lateral chest HISTORY: ??Shortness of breath over the past week. ??Dizzy and fever on and off over the past week. COMPARISON: ??03/07/2014 and 10/07/2013. FINDINGS: Chest two-view. Normal cardiomediastinal silhouette and pulmonary vasculature. ??No focal infiltrate or effusion. ??Osseous structures demonstrate no focal abnormality. Procedure Note Provider, Dawson, - 07/06/2020 EXAMINATION: PA and lateral chest HISTORY: Shortness of breath over the past week. Dizzy and fever on andoff over the past week. COMPARISON: 03/07/2014 and 10/07/2013. FINDINGS: Chest two-view. Normal cardiomediastinal silhouette andpulmonary vasculature. No focal infiltrate or effusion. Osseous structuresdemonstrate no focal abnormality. IMPRESSION: 1. No acute infiltrate. THIS IS AN ELECTRONICALLY VERIFIED REPORT 09/14/2015 8:26 PM: Carroll Hodges M.D. Carroll Hodges M.D. 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
--- OUTSIDE RECORDS SUMMARY | 2024-03-02 22:17 | XMS_ITS | Encounter Summary ---
Author Organization [facility] Healthcare Address [address] [place] [address] Care Team Providers Care Ovens Supervisor Name Role Phone Unavailable Primary Care Provider Unavailabl e Encounter Details Date Type Department Care Team (Latest Contact Info) Description 12/30/2015 7:19 PM CREDIT AND LOAN COLLECTIONS SUPERVISOR - 12/30/2015 9:47 PM CREDIT AND LOAN COLLECTIONS SUPERVISOR Hospital Encounter [facility] Chris Rodriguez, DO [address] [place] [address] Low back pain with left-sided sciatica; Low back pain with right-sided sciatica; Type 2 diabetes mellitus with diabetic neuropathy (CMS/HCC); Essential (primary) hypertension; skilled nursing current use of insulin (CMS/HCC); Other fpc (current) drug therapy; skilled nursing current use of opiate analgesic Social History Tobacco Use Types Packs/Day Years Used Date Smoking Tobacco: Never Assessed Comments Unknown Sex and Gender Information Value Date Recorded Sex Assigned at Not on file Legal Sex Female 10:55 AM CREDIT AND LOAN COLLECTIONS SUPERVISOR Gender Identity Not on file Sexual Orientation Not on file documented as of this encounter Last Filed Vital Signs Vital Sign Reading Time Taken Comments Blood Pressure 116/72 12/30/2015 7:41 PM CREDIT AND LOAN COLLECTIONS SUPERVISOR Pulse 77 12/30/2015 7:41 PM CREDIT AND LOAN COLLECTIONS SUPERVISOR Temperature 36.8 ??C (98.3 ??F) 12/30/2015 7:41 PM CS T Respiratory Rate - - Oxygen Saturation 96% 12/30/2015 7:41 PM CREDIT AND LOAN COLLECTIONS SUPERVISOR Inhaled Oxygen Concentration - - Weight 88.5 kg (195 lb) 12/30/2015 7:41 PM CREDIT AND LOAN COLLECTIONS SUPERVISOR Height 167.6 cm (5' 6 ) 12/30/2015 7:41 PM CREDIT AND LOAN COLLECTIONS SUPERVISOR Body Mass Index 31.47 12/30/2015 7:41 PM CREDIT AND LOAN COLLECTIONS SUPERVISOR documented in this encounter Plan of Treatment Not on file documented as of this encounter Procedures Procedure Name Priority Date/Time Associated Diagnosis Comments LACTATE Routine 12/30/2015 8:00 PM CREDIT AND LOAN COLLECTIONS SUPERVISOR CBC WITH AUTO DIFFERENTIAL Routine 12/30/2015 8:00 PM CREDIT AND LOAN COLLECTIONS SUPERVISOR CRP (ACUTE PHASE) Routine 12/30/2015 7:5 9 PM CREDIT AND LOAN COLLECTIONS SUPERVISOR CREATINE KINASE (CK), TOTAL Routine 12/30/2015 7:59 PM CREDIT AND LOAN COLLECTIONS SUPERVISOR COMPREHENSIVE METABOLIC PANEL Routine 12/30/2015 7:59 PM CREDIT AND LOAN COLLECTIONS SUPERVISOR XR FOOT LEFT 3 OR MORE VIEWS Routine 12/30/2015 12:00 AM CREDIT AND LOAN COLLECTIONS SUPERVISOR documented in this encounter Results * Lactate (12/30/2015 8:00 PM CREDIT AND LOAN COLLECTIONS SUPERVISOR) L-Lactate 1.2 mmol/L 12/30/2015 8:32 PM CREDIT AND LOAN COLLECTIONS SUPERVISOR [facility] HISTORICAL RESULTS Comment:Lactate Reference Ra nge: 0.5 - 2.2 mmol/L 12/30/2015 8:00 PM CREDIT AND LOAN COLLECTIONS SUPERVISOR 12/30/2015 8:05 PM CREDIT AND LOAN COLLECTIONS SUPERVISOR Carroll Yen LAB BLOOD ORDERABLES Fi nal Result [facility] HISTORICAL RESULTS * (ABNORMAL) CBC with auto differential (12/30/2015 8:00 PM CREDIT AND LOAN COLLECTIONS SUPERVISOR) WBC 10.5(H) 4.6 - 10.2 x10 3/ul 12/30/2015 8:08 PM CREDIT AND LOAN COLLECTIONS SUPERVISOR [facility] HISTORICAL RESULTS RBC 3.97 3.76 - 4.80 x10 6/ul 12/30/2015 8:08 PM CREDIT AND LOAN COLLECTIONS SUPERVISOR [facility] HISTORICAL RESULTS Hemoglobin 12.2 11.0 - 15.0 g/dl 12/30/2015 8:08 PM CREDIT AND LOAN COLLECTIONS SUPERVISOR [facility] HISTORICAL RESULTS Hct 35.0 33.0 - 43.0 % MCV 88.2 80.0 - 97.0 fl MCH 30.7 27.0 - 31.2 pg 12/30/2015 8:08 PM CREDIT AND LOAN COLLECTIONS SUPERVISOR [facility] HISTORICAL RESULTS MCHC 34.9 31.8 - 35.4 g/dl 12/30/2015 8:08 PM [facility] RDW 12.4 11.6 - 14.8 % 12/30/2015 8:08 PM CREDIT AND LOAN COLLECTIONS SUPERVISOR [facility] Plt Count 281 124 - 400 x10 3/ul 12/30/2015 8:08 PM [facility] MPV 10.9(H) 7.4 - 10.4 fl 12/30/2015 8:08 PM [employer] [facility] Neut % 61.4 37.0 - 85.0 % 12/30/2015 8:08 PM CREDIT AND LOAN COLLECTIONS SUPERVISOR [facility] Immature Gran % 0.3 0.0 - 3.0 % 12/30/2015 8:08 PM CREDIT AND LOAN COLLECTIONS SUPERVISOR [facility] HISTORICAL RESULTS Lymph % 32.9 5.0 - 45.0 % 12/30/2015 8:08 PM CREDIT AND LOAN COLLECTIONS SUPERVISOR [facility] Cascade % 3.9 3.0 - 15.0 % 12/30/2015 8:08 PM [facility] Eos % 1.0 0.0 - 7.0 % 12/30/2015 8:08 PM CREDIT AND LOAN COLLECTIONS SUPERVISOR [facility] Baso % 0.5 0.0 - 2.0 % 12/30/2015 8:08 PM CREDIT AND LOAN COLLECTIONS SUPERVISOR [facility] Absolute Neuts (auto) 6.5 1.7 - 8.7 x10 3/ul 12/30/2015 8:08 PM CREDIT AND LOAN COLLECTIONS SUPERVISOR [facility] Immature Gran # 0.0 0.0 - 0.3 x10 3/ul 12/30/2015 8:08 PM CREDIT AND LOAN COLLECTIONS SUPERVISOR [facility] Absolute Lymphs (auto) 3.5 0.2 - 4.6 x10 3/ul 12/30/2015 8:08 PM [employer] [facility] Absolute Monos (auto) 0.4 0.1 - 1.5 x10 3/ul 12/30/2015 8:08 PM CREDIT AND LOAN COLLECTIONS SUPERVISOR [facility] HISTORICAL RESULTS Absolute Eos (auto) 0.1 0.0 - 0.7 x10 3/ul 12/30/2015 8:08 PM CREDIT AND LOAN COLLECTIONS SUPERVISOR [facility] HISTORICAL RESULTS Absolute Basos (auto) 0.1 0.0 - 0.2 x10 3/ul 12/30/2015 8:08 PM CREDIT AND LOAN COLLECTIONS SUPERVISOR [facility] HISTORICAL RESULTS 12/30/2015 8:00 PM CREDIT AND LOAN COLLECTIONS SUPERVISOR 12/30/2015 8:05 PM CREDIT AND LOAN COLLECTIONS SUPERVISOR Carroll HendricksmarlineBotanica Exotica LAB BLOOD ORDERABLES Fi nal Result Performing Organization Address [facility] Co de Phone Number [facility] HISTORICAL RESULTS * (ABNORMAL) CRP (acute phase) (12/30/2015 7:59 PM CREDIT AND LOAN COLLECTIONS SUPERVISOR) C-Reactive Protein 13.7(H) 0.0 - 4.9 mg/L 12/30/2015 9:44 PM CREDIT AND LOAN COLLECTIONS SUPERVISOR [facility] HISTORICAL RESULTS 12/30/2015 7:59 PM CREDIT AND LOAN COLLECTIONS SUPERVISOR 12/30/2015 8:05 PM CREDIT AND LOAN COLLECTIONS SUPERVISOR Carroll Paredesalfred LAB BLOOD ORDERABLES Fi nal Result Performing Organization Address [facility] Co [facility] Number [facility] HISTORICAL RESULTS * (ABNORMAL) Creatine kinase (CK), total (12/30/2015 7:59 PM CREDIT AND LOAN COLLECTIONS SUPERVISOR) Creatine Kinase 188(H) 20 - 180 U/L 12/30/2015 9:44 PM CREDIT AND LOAN COLLECTIONS SUPERVISOR [facility] HISTORICAL RESULTS 12/30/2015 7:59 PM CREDIT AND LOAN COLLECTIONS SUPERVISOR 12/30/2015 8:05 PM CREDIT AND LOAN COLLECTIONS SUPERVISOR Carroll Viet ParedesBotanica Ex[employer] LAB BLOOD ORDERABLES Fi nal Result Performing Organization Address [facility] Number [facility] HISTORICAL RESULTS * (ABNORMAL) Comprehensive metabolic panel (12/30/2015 7:59 PM CREDIT AND LOAN COLLECTIONS SUPERVISOR) Sodium 133(L) 135 - 145 mmol/L Potassium 3.8 3.3 - 5.1 mmol/L Chloride 94(L) 96 - 108 mmol/L Carbon Dioxide 28 22 - 32 mmol/L Anion Gap 11 7 - 16 Glucose 244(H) 70 - 100 mg/dL BUN 24(H) 6 - 20 mg/dL Creatinine 1.1 0.5 - 1.1 mg/dL Comment: NOTE: Estimated GFR (Cockroft-Gault) will NOT be calculated unless patient Height and Weight were entered. Also, Kidney Disease Stage (GFR) and Estimated GFR (Cockroft-Gault) will NOT be calculated if Creatinine result is <0.2. Kidney Disease Stage 69 mL/MIN Comment: NOTE; ??The GFR is an [...] or on dialysis @ Est GFR (Cockcroft-G) 73 ml/MIN Comment: Estimated GFR(Cockroft-Gault)is used to calculate patient medication dosage Calcium 9.2 8.6 - 10.0 mg/dL Total Protein 8.0 6.4 - 8.3 g/dL Albumin 3.8 3.5 - 5.2 g/dL Globulin 4.2(H) 2.3 - 3.5 gm/dL Albumin/Globulin Ratio 0.9(L) 1.1 - 1.8 Total Bilirubin 0.3 0.0 - 1.2 mg/dL AST 18 0 - 32 U/L ALT 17 0 - 33 U/L Alkaline Phosphatase 123(H) 35 - 104 U/L 12/30/2015 7:59 PM CREDIT AND LOAN COLLECTIONS SUPERVISOR 12/30/2015 8:05 PM CREDIT AND LOAN COLLECTIONS SUPERVISOR Carroll Yen LAB BLOOD ORDERABLES Fi nal Result [facility] HISTORICAL RESULTS * XR Foot Left 3 or More Views (12/30/2015 12:00 AM CREDIT AND LOAN COLLECTIONS SUPERVISOR) Anatomical Region Laterality Modality Lower Extremities, Foot Left Radiogra phic Imaging 12/30/2015 Impressions 12/30/2015 8:50 PM CREDIT AND LOAN COLLECTIONS SUPERVISOR ??No definite acute abnormality. ??Similar extensive arthropathy in the midfoot. THIS IS AN ELECTRONICALLY VERIFIED REPORT 12/30/2015 8:46 PM: ??Cyril Eubanks M.D. ?? Cyril Eubanks M.D. NH:luis 08:46 PM 08:[address] [facility] [EOD] Narrative 12/30/2015 8:50 PM CREDIT AND LOAN COLLECTIONS SUPERVISOR EXAMINATION: ??Left foot radiographs, 3 views HISTORY: ??Left foot pain for 2 days, abscess removed from second toe 2-3 weeks ago. FINDINGS: ??Comparison made with left foot radiographs 02/09/2015. ??Bones are in anatomic alignment without fracture or definite suspicious bone lesion. ?? Interval amputation of the third toe with proximal portion of proximal phalanx remaining. ??Extensive arthropathy in the midfoot appear similar to the prior exam. ??No radiopaque foreign body in the soft tissues. Procedure Note Provider, MD Dawson - 07/06/2020 EXAMINATION: Left foot radiographs, 3 views HISTORY: Left foot pain for 2 days, abscess removed from second toe 2-3weeks ago. FINDINGS: Comparison made with left foot radiographs 02/09/2015. Bonesare in anatomic alignment without fracture or definite suspicious bone lesion. Interval amputation of the third toe with proximal portion of proximalphalanx remaining. Extensive arthropathy in the midfoot appear similar to theprior exam. No radiopaque foreign body in the soft tissues. IMPRESSION: No definite acute abnormality. Similar extensive arthropathyin the midfoot. THIS IS AN ELECTRONICALLY VERIFIED REPORT 12/30/2015 8:46 PM: Cyril Eubanks M.D. Cyril Eubanks M.D. NH:luis 08:46 PM 08:[address] 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
--- OUTSIDE RECORDS SUMMARY | 2024-03-02 22:17 | XMS_ITS | Encounter Summary ---
Author Organization [facility] Healthcare Address [address] [place] [id number] Care Team Providers Care Top Screw Name Role Phone Juan Luevano MD Primary Care Provider [phone] Encounter Details Date Type Department Care Team (Latest Contact Info) Description 08/18/2016 10:10 AM CDT - 08/18/2016 11:59 PM CDT Hospital Encounter [facility] [phone] Raul Cody MD [address] [place] [address] [place] [address] Tricia Rose MD Discharge Disposition: Discharge to home or self care Social History Tobacco Use Types Packs/Day Years Used Date Smoking Tobacco: Never Comments Unknown Sex and Gender Information Value Date Recorded Sex Assigned at Not on file 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 Gender Identity Not on file Sexual Orientation Not on file documented as of this encounter Discharge Disposition Disposition Code Departure Means Destination Discharge to home or self care documented in this encounter Plan of Treatment Not on file documented as of this encounter Procedures Procedure Name Priority Date/Time Associated Diagnosis Comments BASIC METABOLIC PANEL Routine Gen Lab 08/18/2016 11:38 AM CDT URINE CULTURE RTNm 08/18/2016 11:33 AM CDT DISCHARGE LABORATORY CUMULATIVE REPORT 08/18/2016 12:00 AM CDT documented in this encounter Results * (ABNORMAL) Basic metabolic panel (08/18/2016 11:38 AM CDT) Sodium 137 135 - 145 mmol/L [facility] Potassium, pl 4.5 3.3 - 4.9 mmol/L [facility] Chloride 101 97 - 110 mmol/L [facility] CO2 26 22 - 32 mmol/L [facility] BUN 25 8 - 25 mg/dL [facility] Glucose 218(H) 70 - 199 mg/dL [facility] Creatinine 0.82 0.60 - 1.10 mg/dL [facility] Calcium 9.5 8.5 - 10.3 mg/dL [facility] Anion gap 10 2 - 15 mmol/L [facility] Blood specimen (specimen) 08/18/2016 11:38 AM CDT 08/18/2016 12:18 PM CDT Bee Rico CLINIC OFFICE MANAGER LAB BLOOD ORDERABLES F inal Result Performing Organization Address [facility]/ZIP Co de Phone Number [facility] Department [place] [address] * Urine culture (08/18/2016 11:33 AM CDT) Pathologist [facility] Report Final Report: Greater than or equal to 100,000 colonies/ml of Enterococcus faecalis Plus growth of clinically insignificant bacterial ketty. [facility] Organism ENTEROCOCCUS FAECALIS [facility] Urine, clean voided 08/18/2016 11:33 AM CDT 08/18/2016 5:22 PM CDT Narrative [facility] - 08/19/2016 10:23 AM CDT Received in transport media. Organism Antibiotic Method Susceptibility Enterococcus faecalis Ampicillin INTERPRETATION Susceptible Enterococcus faecalis Vancomycin INTERPRETATION Susceptible Enterococcus faecalis Nitrofurantoin INTERPRETATION Susceptible Enterococcus faecalis Doxycycline INTERPRETATION Resistant Bee Rico CLINIC OFFICE MANAGER LAB MICROBIOLOGY - GEN ERAL ORDERABLES Final Result [facility] Department [place] [address] * DISCHARGE LABORATORY CUMULATIVE REPORT (08/18/2016 12:00 AM CDT) Narrative 08/18/2016 12:00 AM CDT Ordered by an unspecified provider. us Historical Provider LAB BLOOD ORDERABLES Katheryn l Result documented in this encounter Visit Diagnoses Not on filedocumented in this encounter Care Teams Top Screw Relationship Specialty Start Date End Date Juan Luevano MD [address] [place] [address] PCP - General 08/18/16 08/18/16 documented as of this encounter
--- OUTSIDE RECORDS SUMMARY | 2024-03-02 22:17 | XMS_ITS | Encounter Summary ---
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
--- OUTSIDE RECORDS SUMMARY | 2024-03-02 22:17 | XMS_ITS | Encounter Summary ---
Author Organization [facility] Healthcare Address [address] [place] [address] Care Team Providers Care Process Tech Name Role Phone Jarred Rod MD Primary Care Provider [phone] Encounter Details Date Type Department Care Team ([facility] st Contact Info) Description 06/22/2020 9:20 AM CDT Hospital Encounter [facility] Abiodun Rosenberg MD [address] [place] [id number] Social History Tobacco Use Types Packs/Day Years Used Date Smoking Tobacco: Never Alcohol Use Standard Drinks/Week Comments Not Currently 0 (1 standard drink = 0.6 oz pur e alcohol) Comments No Sex and Gender Information Value Date Recorded Sex Assigned at Not on file 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 Gender Identity Not on file Sexual Orientation [...] 07/23/2018 07/07/2020 documented as of this encounter Plan of Treatment Not on file documented as of this encounter Procedures Procedure Name Priority Date/Time Associated Diagnosis Comments DIAGNOSTIC MAMMOGRAM 2D LEFT 06/22/2020 9:22 AM CDT GENERAL RADIOLOGY REPORT 06/22/2020 12:00 AM CDT documented in this encounter Results * Diagnostic Mammogram 2D Left (06/22/2020 9:22 AM CDT) Anatomical Region Laterality Modality Breast Left Mammography 06/22/2020 9:41 AM CDT Narrative 06/22/2020 9:47 AM CDT Patient Name: LENA YOUNGBLOOD ?Ordering Dr: Abiodun Rosenberg MD ?? D.O.B: 1970 ? Exam Date: 06/22/20 ?? 921 ?? Age: 50 ?Sex: Female ? MR#: [id number] ?? Loc: ? RADIOLOGY REPORT ?? Order #[id number] ?? [facility] ? Yasir Left Diagnostic ? Signed ?- MG ?? UNILATERAL LEFT DIGITAL DIAGNOSTIC MAMMOGRAM WITH LATEROMEDIAL CRANIOCAUDAL: ?? 06/22/2020 ?? The study was acquired using full field digital technology and interpreted from ?soft copy. ? CLINICAL: 50-year-old woman comes in today for follow-up after benign left ?? breast biopsy in March 2020. ? COMPARISONS: Comparison is made to exams dated: ??03/30/2020 stereotactic biopsy ?? and 03/12/2012 mammogram - [facility]. ? BREAST TISSUE: There are scattered areas of fibroglandular density. ? FINDINGS: ??There are expected post biopsy changes in the upper outer left ?? breast at middle to anterior depth. ??The biopsy marker clip is in expected ?? position. ??No new suspicious findings are identified in the left breast on ?? mammogram. ?? IMPRESSION: BI-RAD 2 ??BENIGN ?? 1. Expected post biopsy changes in the left breast. ? 2. No new suspicious findings in left breast on mammogram. ??Return to annual ?? screening mammography schedule is recommended. ? The patient was notified of the results at the time of the examination. ? Electronically signed by: ?Placido Meadows ? rl/:06/22/2020 09:47:58 ? Morning Show Producer: Salma GUERRERO (R)(M), [facility] ?? letter sent: Normal Exam ? Reading location: ?? BI-RADS: 2 Benign ? REPORT ELECTRONICALLY SIGNED IN OTHER VENDOR SYSTEM ?? Resulting Agency Comment O Procedure Note Placido Crandall MD - 06/22/2020 Patient Name: LENA YOUNGBLOOD Dr: Abiodun Rosenberg MD D.O.B: 1970 Exam Date: 06/22/20921 Age: 50 Sex: Female MR#: [id number] Loc: RADIOLOGY REPORT Order #[id number] [facility] Yasir Left Diagnostic Signed - MG UNILATERAL LEFT DIGITAL DIAGNOSTIC MAMMOGRAM WITH LATEROMEDIALCRANIOCAUDAL: 06/22/2020 The study was acquired using full field digital technology andinterpreted from soft copy. CLINICAL: 50-year-old woman comes in today for follow-up after benignleft breast biopsy in March 2020. COMPARISONS: Comparison is made to exams dated: 03/30/2020 stereotacticbiopsy and 03/12/2012 mammogram - [facility]. BREAST TISSUE: There are scattered areas of fibroglandular density. FINDINGS: There are expected post biopsy changes in the upper outer left breast at middle to anterior depth. The biopsy marker clip is inexpected position. No new suspicious findings are identified in the left breaston mammogram. IMPRESSION: BI-RAD 2 BENIGN 1. Expected post biopsy changes in the left breast. 2. No new suspicious findings in left breast on mammogram. Return toannual screening mammography schedule is recommended. The patient was notified of the results at the time of the examination. Electronically signed by: Placido Meadows rl/:06/22/2020 09:47:58 Morning Show Producer: Salma Maya)(Ronnie), [facility] letter sent: Normal Exam Reading location: BI-RADS: 2 Benign REPORT ELECTRONICALLY SIGNED IN OTHER VENDOR SYSTEM us Abiodun Rosenberg MD IMG MAMMO PROCEDURES Final Result * GENERAL RADIOLOGY REPORT (06/22/2020 12:00 AM CDT) Anatomical Region Laterality Modality Radiographic Shelli ging Narrative 06/22/2020 12:00 AM CDT Ordered by an unspecified provider. us Historical Provider MD GOMEZ XR PROCEDURES Final R esult documented in this encounter Visit Diagnoses Not on filedocumented in this encounter Additional Health Concerns Infection Onset Date Last Indicated Resolved Time COVID19 Comment:12/15/2019 12/14/2019 12/13/2019 documented as of this encounter Care Teams Process Tech Relationship Specialty Start Date End Date Jarred Rod MD PCP - General 09/16/16 documented as of this encounter
--- OUTSIDE RECORDS SUMMARY | 2024-03-02 22:17 | XMS_ITS | Encounter Summary ---
Author Organization [facility] Healthcare Address [address] [place] [address] Care Team Providers Care Saas Architect Name Role Phone Jarred Rod MD Primary Care Provider [phone] Encounter Details Date Type Department Care Team ([facility] st Contact Info) Description 03/30/2020 8:06 AM PRODUCT DEVELOPMENT TECHNICIAN Hospital Encounter [facility] Abiodun Rosenberg MD [address] [place] [id number] Social History Tobacco Use Types Packs/Day Years Used Date Smoking Tobacco: Never Alcohol Use Standard Drinks/Week Comments Not Currently 0 (1 standard drink = 0.6 oz pur e alcohol) Comments No Sex and Gender Information Value Date Recorded Sex Assigned at Not on file Legal Sex Female 10:55 AM PRODUCT DEVELOPMENT TECHNICIAN Gender Identity Not on file Sexual Orientation [...] Procedure Name Priority Date/Time Associated Diagnosis Comments GENERAL RADIOLOGY REPORT 04/01/2020 12:00 AM PRODUCT DEVELOPMENT TECHNICIAN SCAN - PATHOLOGY 03/31/2020 12:0 0 AM PRODUCT DEVELOPMENT TECHNICIAN STEREOTACTIC BREAST BIOPSY LEFT 03/30/2020 8:08 AM PRODUCT DEVELOPMENT TECHNICIAN GENERAL RADIOLOGY REPORT 03/30/2020 12:00 AM PRODUCT DEVELOPMENT TECHNICIAN documented in this encounter Results * GENERAL RADIOLOGY REPORT (04/01/2020 12:00 AM PRODUCT DEVELOPMENT TECHNICIAN) Anatomical Region Laterality Modality Radiographic Shelli ging Narrative 04/01/2020 12:00 AM PRODUCT DEVELOPMENT TECHNICIAN Ordered by an unspecified provider. us Historical Provider IMG XR PROCEDURES Final R esult * SCAN - PATHOLOGY (03/31/2020 12:00 AM PRODUCT DEVELOPMENT TECHNICIAN) Narrative 03/31/2020 12:00 AM PRODUCT DEVELOPMENT TECHNICIAN Ordered by an unspecified provider. us Historical Provider Final Res ult * Stereotactic Breast Biopsy Left (03/30/2020 8:08 AM PRODUCT DEVELOPMENT TECHNICIAN) Anatomical Region Laterality Modality Breast Left Mammography 03/30/2020 10:3 5 AM PRODUCT DEVELOPMENT TECHNICIAN Narrative 03/30/2020 10:36 AM PRODUCT DEVELOPMENT TECHNICIAN Patient Name: LENA YOUNGBLOOD ?Ordering Dr: Abiodun Rosenberg MD ?? D.O.B: 1970 ? Exam Date: 03/30/20 ?? 0808 ?? Age: 49 ?Sex: Female ? MR#: [id number] ?? Loc: ? RADIOLOGY REPORT ?? Order #[id number] [facility] ? Breast Left Stereotactic ? Signed ? EXAM DESCRIPTION: ?? Breast Left Stereotactic ? REASON FOR STUDY: ?? 49-year-old female presents for stereotactic biopsy of ?? suspicious left breast calcifications. ? COMPARISON: ?? Mammography from 02/16/2020 and 03/15/2020. ? TECHNIQUE/FINDINGS: ?Images were submitted from a left breast stereotactic biopsy performed by Dr. Cuca Rosenberg and evaluated at the time of the dictation. The radiologist was not ?? present during the procedure. ? FINDINGS: ? Submitted images demonstrate calcifications within the biopsy specimens. ??For ?? full details, please refer to the procedure report. ? Post procedural mammography demonstrates post-biopsy changes and a biopsy ?? marking clip in expected position at the biopsy site at the 2 o'clock ?? position, anterior to middle depth in the left breast. ? IMPRESSION: ? 1. ??Images obtained during left breast stereotactic biopsy. Post-procedure ?? mammogram demonstrates a biopsy marking clip in expected position at the ?? biopsy site. ??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 to separate report for full details of the ?? procedure. ? 2. ??Radiologic-pathologic correlation is recommended. ? THIS IS AN ELECTRONICALLY VERIFIED FINAL REPORT ?? 03/30/2020 10:36 AM - Electronically signed by Tod Campbell M.D. ?? Tod Campbell M.D. ? AB: AB ?? D: ??03/30/2020 10:36 AM ?? T: ??03/30/2020 10:36 AM ? Report ID: [id number] ?? Reading Location: ??[id number] ? REPORT ELECTRONICALLY SIGNED IN OTHER VENDOR SYSTEM ?? Resulting Agency Comment O Procedure Note Tod Campbell MD - 03/30/2020 Patient Name: LENA YOUNGBLOOD Marek Dr: Abiodun Rosenberg MD DBelemO.B: 1970 Exam Date: 03/30/20807 Age: 49 Sex: Female MR#: [id number] [id number] Order #[id number] [facility] Breast Left Stereotactic Signed EXAM DESCRIPTION: Breast Left Stereotactic REASON FOR STUDY: 49-year-old female presents for stereotactic biopsyof suspicious left breast calcifications. COMPARISON: Mammography from 02/16/2020 and 03/15/2020. TECHNIQUE/FINDINGS: Images were submitted from a left breast stereotactic biopsy performedby Dr. Rosenberg and evaluated at the time of the dictation. The radiologist wasnot present during the procedure. FINDINGS: Submitted images demonstrate calcifications within the biopsy specimens.For full details, please refer to the procedure report. Post procedural mammography demonstrates post-biopsy changes and a biopsy marking clip in expected position at the biopsy site at the 2 o'clock position, anterior to middle depth in the left breast. IMPRESSION: 1. Images obtained during left breast stereotactic biopsy.Post-procedure mammogram demonstrates a biopsy marking clip in expected position at the biopsy site. 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 to separate report for full details of the procedure. 2. Radiologic-pathologic correlation is recommended. THIS IS AN ELECTRONICALLY VERIFIED FINAL REPORT 03/30/2020 10:36 AM - Electronically signed by Tod Campbell M.D. AB: Report ID: [id number] Reading Location: [id number] REPORT ELECTRONICALLY SIGNED IN OTHER VENDOR SYSTEM Abiodun GOMEZ MAMMO PROCEDURES Final Result * GENERAL RADIOLOGY REPORT (03/30/2020 12:00 AM PRODUCT DEVELOPMENT TECHNICIAN) Anatomical Region Laterality Modality Radiographic Shelli ging Narrative 03/30/2020 12:00 AM PRODUCT DEVELOPMENT TECHNICIAN Ordered by an unspecified provider. Historical Provider MD GOMEZ XR PROCEDURES Final R esult documented in this encounter Visit Diagnoses Not on filedocumented in this encounter Additional Health Concerns Infection Onset Date Last Indicated Resolved Time COVID19 Comment:12/15/2019 12/14/2019 12/13/2019 documented as of this encounter Care Teams Saas Architect Relationship Specialty Start Date End Date Jarred Rod MD PCP - General 09/16/16 documented as of this encounter
--- OUTSIDE RECORDS SUMMARY | 2024-03-02 22:17 | XMS_ITS | Encounter Summary ---
Author Organization [facility] Address [address] [place] [address] Phone Care Team Providers Care Materials Specialist Name Role Phone Jarred Rod MD Primary Care Provider [phone]- [phone] Encounter Details Date Type Department Care Team (Late st Contact Info) Description 03/30/2020 Orders Only [facility] [place], [place] Abiodun Rosenberg MD [facility] [address] Social History Tobacco Use Types Packs/Day Years Used Date Smoking Tobacco: Never Alcohol Use Standard Drinks/Week Comments Not Currently 0 (1 standard drink = 0.6 oz pur e alcohol) Comments No Sex and Gender Information Value Date Recorded Sex Assigned at Not on file Legal Sex Female 10:55 AM HARDWOOD FALLER Gender Identity Not on file Sexual Orientation Not on file documented as of this encounter Plan of Treatment Not on file documented as of this encounter Procedures Procedure Name Priority Date/Time Associated Diagnosis Comments SURGICAL PATHOLOGY Routine 03/30/2020 2: 45 PM HARDWOOD FALLER documented in this encounter Results * Surgical pathology (03/30/2020 2:45 PM HARDWOOD FALLER) Breast biopsy, needle core 03/30/2020 2:45 PM HARDWOOD FALLER 03/30/2020 2:45 PM HARDWOOD FALLER Narrative 03/31/2020 3:09 PM HARDWOOD FALLER [facility] Department of Pathology [address] [place] [id number] ?? Final Report Patient Name: LENA YOUNGBLOOD : ??1970 (Age: 49) Gender: ??F Address: ??[address] [place] [address] ??[address] [facility] #: [id number] Service: DEFAULT Location: [facility] Patient Type: Clinical ? Taken: 03/30/2020 Received: 03/30/2020 Accessioned: 03/30/2020 Reported: 03/31/2020 Physician(s): Benjamin Ramirez M.D. 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 ??This case was reviewed by a second departmental pathologist with diagnostic agreement. Clare Sykes M.D. Report Electronically Reviewed and Signed Out By ??Clare Sykes M.D. 03/31/2020 15:09:33 Specimen(s) Received: A: Left breast calcifications 2 o'clock Microscopic Description: Microscopic examination is performed. ??The uninvolved breast tissue is fatty and inactive. Clinical History: Abnormal mammogram per radiologist Left breast calcifications Left stereotactic breast biopsy ? Gross Description The specimen container is labeled with the patient's name and left breast calcifications 2 o'clock . ??Received in formalin is a single cassette with approximately 12 cylindrical pieces of fibrofatty tissue, each 0.3 cm in diameter, with lengths ranging from 0.4-2.5 cm. ?? Also received are approximately 10 free floating cylindrical pieces of fibrofatty tissue, each 0.3 cm in diameter, with lengths ranging from 1.0-2.1 cm. ??The specimen was excised and placed in formalin at 9:30 AM. A1-A2 Tissue in cassette (Ca++) A3A4 Free-floating tissue artur/03/30/2020 14:53 ??CYNTHIA Chou us Abiodun Rosenberg MD LAB PATHOLOGY ORDERABLES Fi nal Result documented in this encounter Visit Diagnoses Not on filedocumented in this encounter Additional Health Concerns Infection Onset Date Last Indicated Resolved Time COVID19 Comment:12/15/2019 12/14/2019 12/13/2019 documented as of this encounter Care Teams Materials Specialist Relationship Specialty Start Date End Date Jarred Rod MD PCP - General 09/16/16 documented as of this encounter
--- OUTSIDE RECORDS SUMMARY | 2024-03-02 22:17 | XMS_ITS | Encounter Summary ---
Author Organization [facility] Facility Care Team Providers Care Community Health Educator Name Role Phone Unavailable Primary Care Provider Unavailabl e Encounter Details Date Type Department Care Team (Late st Contact Info) Description 03/17/2016 7:00 AM FORESTRY CONSERVATION WORKER - 03/17/2016 11:59 PM FORESTRY CONSERVATION WORKER Hospital Encounter [facility] Raul Grande MD [address] [facility] [place] [address] Reynaldo Linares MD [address] [address] Social History Tobacco Use Types Packs/Day Years Used Date Smoking Tobacco: Never Assessed Comments Unknown Sex and Gender Information Value Date Recorded Sex Assigned at Not on file Legal Sex Female 10:55 AM FORESTRY CONSERVATION WORKER Gender Identity Not on file Sexual Orientation Not on file documented as of this encounter Plan of Treatment Not on file documented as of this encounter Visit Diagnoses Not on filedocumented in this encounter
--- OUTSIDE RECORDS SUMMARY | 2024-03-02 22:17 | XMS_ITS | Encounter Summary ---
Author Organization [facility] Healthcare Address [address] [place] [address] Care Team Providers Care Detective Supervisor Name Role Phone Juan Luevano MD Primary Care Provider [phone] Encounter Details Date Type Department Care Team (Latest Contact Info) Description 09/15/2016 12:44 PM CDT - 09/15/2016 11:59 PM CDT Hospital Encounter [facility] OP INTERIM [phone] Raul Cody MD [address] [place] [address] [place] [address] Oj Delgado MD [address] [place] [address] Discharge Disposition: Discharge to home or self care Social History Tobacco Use Types Packs/Day Years Used Date Smoking Tobacco: Never Comments Unknown Sex and Gender Information Value Date Recorded Sex Assigned at Not on file Legal Sex Female 10:55 AM MICROELECTRONICS ASSEMBLER Gender Identity Not on file Sexual Orientation Not on file documented as of this encounter Discharge Disposition Disposition Code Departure Means Destination Discharge to home or self care documented in this encounter Plan of Treatment Not on file documented as of this encounter Procedures Procedure Name Priority Date/Time Associated Diagnosis Comments URINE CULTURE Routine Gen Lab 09/15/2016 2:08 PM CDT documented in this encounter Results * Urine culture (09/15/2016 2:08 PM CDT) Report Final Report: Insignificant growth based on current clinical standards. [facility] Urine, clean voided 09/15/2016 2:08 PM CDT 09/15/2016 5:58 PM CDT Narrative LES K[facility]KO - 09/16/2016 1:14 PM CDT us Raul Cody MD LAB MICROBIOLOGY - GENERAL ORDERABLES Final Result [facility] Department [place] [address] documented in this encounter Visit Diagnoses Not on filedocumented in this encounter Care Teams Detective Supervisor Relationship Specialty Start Date End Date Juan Lueavno MD [facility] [place] [address] PCP - General 09/15/16 09/15/16 documented as of this encounter
--- OUTSIDE RECORDS SUMMARY | 2024-03-02 22:17 | XMS_ITS | Encounter Summary ---
Author Organization [facility] Healthcare Address [address] [place] [address] Care Team Providers Care Bench Tool Maker Name Role Phone Jarred Rod MD Primary Care Provider +1- [phone] Encounter Details Date Type Department Care Team (Late st Contact Info) Description 12/14/2019 3:09 PM CDT - 12/14/2019 9:45 PM CDT Hospital Encounter [facility] [address] [place] [address] Unknown, Arnoldo Bocanegra II, MD [address] [place] [id number] Discharge Disposition: Discharge to a short term hospital for IP Social History Tobacco Use Types Packs/Day Years Used Date Smoking Tobacco: Never Alcohol Use Standard Drinks/Week Comments Not Currently 0 (1 standard drink = 0.6 oz pur e alcohol) Comments No Sex and Gender Information Value Date Recorded Sex Assigned at Not on file Legal Sex Female 10:55 AM GED PREPARATION TEACHER Gender Identity Not on file Sexual Orientation Not on file documented as of this encounter Last Filed Vital Signs Vital Sign Reading Time Taken Comments Blood Pressure 124/89 12/14/2019 3:33 PM CDT Pulse 92 12/14/2019 3:33 PM CDT Temperature 37.1 ??C (98.8 ??F) 12/14/2019 3:33 PM CD T Respiratory Rate - - Oxygen Saturation 95% 12/14/2019 3:33 PM CDT Inhaled Oxygen Concentration - - Weight 88 kg (194 lb 0.1 oz) 12/14/2019 3:33 PM CDT Height 167.6 cm (5' 6 ) 12/14/2019 3:33 PM CDT Body Mass Index 31.31 12/14/2019 3:33 PM CDT documented in this encounter Medications [...] Disposition Code Departure Means Destination Discharge to a short term hospital for IP documented in this encounter Plan of Treatment Not on file documented as of this encounter Procedures Procedure Name Priority Date/Time Associated Diagnosis Comments CARDIOLOGY REPORT 12/18/2019 12: 00 AM CDT SCAN - LABS 12/16/2019 12:00 AM CDT SEPSIS LACTATE Routine 12/14/2019 5:10 PM CDT TNI WITH LIPID PANEL Routine 12/14/2019 5:10 PM CDT CBC WITH AUTO DIFFERENTIAL Routine 12/14/2019 5:10 PM CDT COMPREHENSIVE METABOLIC PANEL Routine 12/14/2019 5:10 PM CDT ECG 12-LEAD 12/14/2019 4:43 PM CDT URINALYSIS, COMPLETE W/REFLEX TO CULTURE Routine 12/14/2019 3:27 PM CDT XR CHEST 1 VIEW 12/14/2019 12:00 AM CDT documented in this encounter Results * CARDIOLOGY REPORT (12/18/2019 12:00 AM CDT) Anatomical Region Laterality Modality Other Narrative 12/18/2019 12:00 AM CDT Ordered by an unspecified provider. Historical Provider [facility] FLETCHER PAUL Final Result * SCAN - LABS (12/16/2019 12:00 AM CDT) Narrative 12/16/2019 12:00 AM CDT Ordered by an unspecified provider. us Historical Provider Final Res ult * (ABNORMAL) TNI with LIPID PANEL (12/14/2019 5:10 PM CDT) Troponin I <0.300 0.000 - 0.300 ng/mL [facility] Comment: Reference using GREGORY Chemiluminescence ? Negative: Repeat in 4-6 hours as indicated. Triglycerides 250(H) 0 - 149 mg/dL [facility] Comment: National Lipid Association/NCEP Guidelines: ?? Normal ?< 150 mg/dL ?? Borderline high ?? 150-199 mg/dL ?? High ?200-499 mg/dL ?? Very High ? >=500 mg/dL Cholesterol 181 0 - 199 mg/dL [facility] Comment: National Lipid Association/NCEP Guidelines: Desirable ? < 200 mg/dL Borderline high: ??200-239 mg/dL High Risk: ?>=240 mg/dL HDL Cholesterol 37 mg/dL [facility] Comment: Reference Ranges: ? Males: >=40 mg/dL ? Females: >=50 mg/dL LDL Cholesterol, Calc 94 0 - 129 mg/dL [facility] Comment: National Lipid Association/NCEP Guidelines: ??Optimal ? < 100 mg/dL ??Near Optimal ?100-129 mg/dL ??Borderline high 130-159 mg/dL ??High ?>=160 mg/dL Cholesterol/HDL Ratio 4.9 [facility] Comment: Optimal ??< 3.5:1 High ? > 5:1 12/14/2019 5:10 PM CDT 12/14/2019 5:18 PM CDT Narrative Resulting Agency Comment ER us Ryanne Proctor PLASTIC SHAPER LAB BLOOD ORDERABLES Final Re sult [facility] [address] [phone] * (ABNORMAL) Comprehensive metabolic panel (12/14/2019 5:10 PM CDT) Sodium 134(L) 135 - 145 mmol/L [facility] Potassium 3.9 3.3 - 5.1 mmol/L [facility] Chloride 98 96 - 108 mmol/L [facility] Carbon Dioxide 24 22 - 32 mmol/L [facility] Anion Gap 12 7 - 16 [facility] Glucose 232(H) 70 - 100 mg/dL [facility] BUN 16 8 - 25 mg/dL [facility] Creatinine 1.0 0.5 - 1.1 mg/dL [facility] Comment: NOTE: Estimated GFR (Cockroft-Gault) will NOT be calculated unless patient Height and Weight were entered. Also, Kidney Disease Stage (GFR) and Estimated GFR (Cockroft-Gault) will NOT be calculated if Creatinine result is <0.2. Kidney Disease Stage 76 mL/MIN [facility] Comment: NOTE; ??The GFR is an [...] failure or on dialysis Est GFR (Cockcroft-G) 77 ml/MIN [facility] Comment: Estimated GFR(Cockroft-Gault)is used to calculate patient medication dosage Calcium 9.4 8.6 - 10.3 mg/dL [facility] Total Protein 8.5(H) 6.4 - 8.3 g/dL [facility] Albumin 4.1 3.5 - 5.0 g/dL [facility] Globulin 4.4(H) 2.3 - 3.5 gm/dL [facility] Albumin/Globulin Ratio 0.9(L) 1.1 - 1.8 [facility] Total Bilirubin 0.4 0.0 - 1.2 mg/dL [facility] AST 24 0 - 32 U/L [facility] [employer] [facility] ALT 27 0 - 33 U/L [facility] Alkaline Phosphatase 110(H) 35 - 104 U/L [facility] [employer] [facility] 12/14/2019 5:10 PM CDT 12/14/2019 5:18 PM CDT Narrative Resulting Agency Comment ER us Ryanne Proctor PLASTIC SHAPER LAB BLOOD ORDERABLES Final Re sult [facility] [employer] [facility] [address] [place] [address] * Sepsis Lactate (12/14/2019 5:10 PM CDT) Pathologist [facility] Sepsis lactate 1.2 mmol/L [facility] Comment: Lactate Reference Range: 0.5 - 2.2 mmol/L 12/14/2019 5:10 PM CDT 12/14/2019 5:18 PM CDT Narrative Resulting Agency Comment ER us Ryanne Proctor PLASTIC SHAPER LAB BLOOD ORDERABLES Final Re sult [address] [phone] * (ABNORMAL) CBC with auto differential (12/14/2019 5:10 PM CDT) Pathologist [facility] WBC 7.0 3.8 - 9.9 X10 3/ul [facility] RBC 3.67(L) 3.90 - 5.20 x10 6/ul [facility] Hemoglobin 11.2(L) 11.9 - 15.5 g/dL [facility] Hct 32.3(L) 35.6 - 45.5 % [facility] MCV 88.0 81.3 - 96.4 fl [facility] MCH 30.5 27.1 - 33.3 pg [facility] MCHC 34.7 32.3 - 35.7 g/dl [facility] RDW 12.5 11.1 - 14.9 % [facility] Plt Count 218 150 - 400 x10 3/ul [facility] MPV 10.6 9.1 - 12.3 fl [facility] Neut % 72.4 % [facility] AST - [facility] Immature Gran % 0.3 % [place] [facility] Lymph % 20.4 % [facility] E AST - [facility] [place] % 6.6 % [facility] AST - [facility] Eos % 0.0 % [facility] E AST - [facility] AUTO BASO % 0.3 % [facility] NEUTROPHIL ABS # 5.0 1.7 - 6.5 x10 3/ul [facility] Immature Gran # 0.0 0.0 - 0.1 x10 3/ul [facility] Absolute Lymphs (auto) 1.4 0.8 - 3.3 x10 3/ul [facility] Absolute Monos (auto) 0.5 0.2 - 0.8 x10 3/ul [facility] Absolute Eos (auto) 0.0 0.0 - 0.5 x10 3/ul [facility] BASOPHIL ABS # 0.0 0.0 - 0.1 x10 3/ul [facility] Nucleat RBC Rel Count 0.0 #/100WBC [facility] NRBC abs 0.00 0.00 - 0.01 x10 3/ul [facility] Absolute Neutrophils 5,000 200 - 8,000 /ul [facility] 12/14/2019 5:10 PM CDT 12/14/2019 5:18 PM CDT Narrative Resulting Agency Comment ER Ryanne Nat Proctor PLASTIC SHAPER LAB BLOOD [place]AB[place] [address], [facility] [phone] * ECG 12 lead (12/14/2019 4:43 PM CDT) Ventricular Rate EKG/Min 107 BPM [facility] Atrial Rate 107 BPM [facility] ME-Interval (MSEC) 158 ms [facility] QRS-Interval (MSEC) 72 ms [facility] QT-Interval (MSEC) 346 ms [facility] QTc 461 ms [facility] [place] 49 degrees [facility] [place] 30 degrees [facility] [place] 15 degrees [facility] Diagnosis Sinus tachycardia Nonspecific T wave abnormality Abnormal ECG When compared with ECG of 14-SEP-2015 20:21, No significant change was found [facility] 12/14/2019 4:43 PM CDT 12/15/2019 6:56 PM CDT Narrative Resulting Agency Comment DAYANA Mozendaper PLASTIC SHAPER ECG ORDERABLES Final Result Performing Organization Address City/[facility]/ZIP Co de Phone Number [facility] * (ABNORMAL) URINALYSIS, COMPLETE W/REFLEX TO CULTURE (12/14/2019 3:27 PM CDT) Ur Collection Type CLEAN CATCH [facility] Ur Culture Indicated? C S NOT INDICATED [facility] Urine Color YELLOW YELLOW [facility] Urine Clarity CLEAR CLEAR [facility] Urine Glucose (UA) 50(A) NORMAL mg/dL [facility] Urine Bilirubin NEGATIVE NEGATIVE mg/dl [facility] Urine Ketones NEGATIVE NEGATIVE mg/dL [facility] Ur Specific [place] 1.012 1.005 - 1.025 [facility] Urine Blood NEGATIVE NEGATIVE mg/dl [facility] Urine pH 6.0 5.0 - 8.0 [facility] Urine Protein >=500(A) NEGATIVE mg/dL [facility] Urine Urobilinogen NORMAL NORMAL mg/dL [facility] Urine Nitrite NEGATIVE NEGATIVE [facility] Ur Leukocyte Esterase NEGATIVE NEGATIVE [place]/ul [facility] Ur Microscopic Review Indicated or Ordered [facility] Urine RBC 1-5 0 - 2 /HPF [facility] Urine WBC 1-5 0 - 2 /HPF [facility] Urine Bacteria 1+ /HPF [facility]AL [facility] Urine Mucus PRESENT /LPF [facility] Ur Squamous Epith Cells 6-10 /LPF [facility] 12/14/2019 3:27 PM CDT 12/14/2019 3:31 PM CDT Narrative [facility] - 12/14/2019 3:37 PM CDT Indication(s) for ordering ?? Pain-pelv/flank/suprapubc fcb Clean catch Resulting Agency Comment ER us Ryanne Proctor PLASTIC SHAPER LAB URINE ORDERABLES Final Re sult [facility] [address] [phone] * XR Chest 1 View (12/14/2019 12:00 AM CDT) Anatomical Region Laterality Modality Body, Chest N/A Radiographic Shelli ging 12/14/2019 5:32 PM CDT Narrative 12/14/2019 5:35 PM CDT Patient Name: LENA YOUNGBLOOD ?Ordering Dr: Ryanne Proctor CNP ?? D.O.B: 1970 ? Exam Date: 12/14/19 ?? 0000 ?? Age: 49 ?Sex: Female ? MR#: [id number] ?? Loc: ? RADIOLOGY REPORT ?? Order #[id number] ?? Radiology ? Chest 1 View Portable ? Signed ? EXAM DESCRIPTION: ?? Chest 1 View Portable ? REASON FOR STUDY: ?? Covid-19 + Dizzy, weakness, vomiting, fever, bodyaches ?? since 12/07/19 ? TECHNIQUE: ?? Frontal radiographic view of the chest acquired. ? COMPARISON: ?? 09/14/2015 ? FINDINGS: ? Evaluation is limited due to portable technique and body habitus. ? Lung volumes are low. ??No consolidations or effusions are noted. ??Heart size ?? and vascularity are normal. ??Bones are unremarkable. ? IMPRESSION: ? 1. ??Low volumes. ? THIS IS AN ELECTRONICALLY VERIFIED FINAL REPORT ?? 12/14/2019 5:35 PM - Electronically signed by Joseph Rocha M.D. ?? Joseph Rocha M.D. ? SS: SS ?? D: ??12/14/2019 5:35 PM ?? T: ??12/14/2019 5:35 PM ? Report ID: [id number] ?? Reading Location: ??[id number] ? REPORT ELECTRONICALLY SIGNED IN OTHER VENDOR SYSTEM ?? Resulting Agency Comment P Procedure Note Joseph Rocha MD - 12/14/2019 Patient Name: LENA YOUNGBLOOD Dr: Ryanne Proctor CNP, D.O.B: 1970 Exam Date: 12/14/19 0000 Age: 49 Sex: Female MR#: [id number] Loc: RADIOLOGY REPORT Order #[id number] Radiology Chest 1 View Portable Signed EXAM DESCRIPTION: Chest 1 View Portable REASON FOR STUDY: Covid-19 + Dizzy, weakness, vomiting, fever,bodyaches since 12/07/19 TECHNIQUE: Frontal radiographic view of the chest acquired. COMPARISON: 09/14/2015 FINDINGS: Evaluation is limited due to portable technique and body habitus. Lung volumes are low. No consolidations or effusions are noted. Heartsize and vascularity are normal. Bones are unremarkable. IMPRESSION: 1. Low volumes. THIS IS AN ELECTRONICALLY VERIFIED FINAL REPORT 12/14/2019 5:35 PM - Electronically signed by Joseph Rocha M.D. SS: COMPA Report ID: [id number] Reading Location: [id number] REPORT ELECTRONICALLY SIGNED IN OTHER VENDOR SYSTEM us Ryanne Johns Esthela PLASTIC SHAPER IMG XR PROCEDURES Final Resul t documented in this encounter Visit Diagnoses Not on filedocumented in this encounter Additional Health Concerns Infection Onset Date Last Indicated Resolved Time COVID19 Comment:12/15/2019 12/14/2019 12/13/2019 documented as of this encounter Care Teams Bench Tool Maker Relationship Specialty Start Date End Date Jarred Rod MD PCP - General 09/16/16 documented as of this encounter
--- OUTSIDE RECORDS SUMMARY | 2024-03-02 22:17 | XMS_ITS | Encounter Summary ---
Author Organization [facility] Address [address] [place] [address] Care Team Providers Care Journeyman Wireman Name Role Phone Jarred Rod MD Primary Care Provider +1- [phone] Reason for Visit * Cardiology (Routine) - Closed Specialty Diagnoses / Procedures Referred By Contac t Referred To Contact Diagnoses Chest pain, unspecified type Essential hypertension BRISCOE (dyspnea on exertion) Procedures Transthoracic Echo Complete W Doppler/CF Ervin Moreno MD [address] [address] Phone: tel: fax: [facility] Referral ID Status Reason Start Date Expiration Date Visits Re quested Visits Authorized [id number] Closed 01/22/2019 08/02/2020 1 1 Encounter Details Date Type Department Care Team (Latest Contact Info) Description 03/06/2019 8:15 AM UNIT MANAGER RN Ancillary Procedure [facility] Cardiology [address] [place] [address] Chest pain, unspecified type; Essential hypertension; BRISCOE (dyspnea on exertion) Social History Tobacco Use Types Packs/Day Years Used Date Smoking Tobacco: Never Alcohol Use Standard Drinks/Week Comments Not Currently 0 (1 standard drink = 0.6 oz pur e alcohol) Comments No Sex and Gender Information Value Date Recorded Sex Assigned at Not on file Legal Sex Female 10:55 AM UNIT MANAGER RN Gender Identity Not on file Sexual Orientation Not on file documented as of this encounter Last Filed Vital Signs Vital Sign Reading Time Taken Comments Blood Pressure 159/102 03/06/2019 8:20 AM UNIT MANAGER RN Pulse - - Temperature - - Respiratory Rate - - Oxygen Saturation - - Inhaled Oxygen Concentration - - Weight - - Height - - Body Mass Index - - documented in this encounter Plan of Treatment Not on file documented as of this encounter Procedures Procedure Name Priority Date/Time Associated Diagnosis Comments TRANSTHORACIC ECHO (TTE) COMPLETE W DOPPLER/CF W CONTRAST Routine 03/06/2019 8:57 AM UNIT MANAGER RN Chest pain, unspecified type Essential hypertension BRISCOE (dyspnea on exertion) documented in this encounter Results * TRANSTHORACIC ECHO (TTE) COMPLETE W DOPPLER/CF W CONTRAST (03/06/2019 8:57 AM UNIT MANAGER RN) Anatomical Region Laterality Modality Ultrasound 03/06/2019 7:51 AM UNIT MANAGER RN Narrative 03/06/2019 6:44 PM UNIT MANAGER RN [facility] Cardiology [address], [place] [address] [address], [place] [address] P:[phone] P:[phone] Echocardiographic Report Patient Name: LENA YOUNGBLOOD : 1970 Study Date: 03/06/2019 7:51:19 AM Gender: F Tech: Location: [place] Ref.Provider: PRADEEP Height(Cm): 168 BSA: 1.97 Weight(Kg): 87.54 Heart Rate: 87 BP: 159/102 Quality: Definity contrast agent used to enhance endocardial border definition Order Provider: ERVIN MORENO Procedures: Echocardiographic Report: Transthoracic echocardiogram with [...] Findings: Interpretation Site: Exam was interpreted at [facility]. Left Ventricle: Normal left ventricular systolic function. [...] study. Electronically Signed By: Carroll Pérez MD, [facility] 2019-03-06 18:44:27 UNIT MANAGER RN Procedure Note Carroll Pérez MD - 03/06/2019 [facility] Cardiology [address], [place] [address] [id number], [place] [address] P:[phone] P:[phone] Echocardiographic Report Patient Name: LENA YOUNGBLOOD : 1970 Study Date: 03/06/2019 7:51:19 AM Gender: F Tech: Location: [place] Ref.Provider: PRADEEP Height(Cm): 168 BSA: 1.97 Weight(Kg): 87.54 Heart Rate: 87 BP: 159/102 Quality: Definity contrast agent used to enhance endocardial borderdefinition Order Provider: ERVIN MORENO Procedures: Echocardiographic Report: Transthoracic echocardiogram with [...] Findings: Interpretation Site: Exam was interpreted at [facility]. Left Ventricle: Normal left ventricular systolic function. [...] study. Electronically Signed By: Carroll Pérez MD, [facility] 2019-03-06 18:44:27 UNIT MANAGER RN Ervin Moreno MD CV ECHO PROCEDURES Final Result documented in this encounter Visit Diagnoses Diagnosis Chest pain, unspecified type Essential hypertension Unspecified essential hypertension BRISCOE (dyspnea on exertion) Other dyspnea and respiratory abnormality documented in this encounter Administered Medications Inactive Administered Medications - up to 3 most recent administrations Medication Order MAR Action Action Date Dose Rate Site perflutren lipid (DEFINITY) 1.5 mL in sodium chloride 0.9% 10 mL syringe 1-10 mL, intravenous, Once in imaging, contrast, Starting on Viky 03/06/19 at 0820, For 1 dose Given 03/06/2019 9:10 AM UNIT MANAGER RN 1 mL documented in this encounter Orders Medications Ordered That Ed ht Not Have Been Administered Count Last Ordered Date First Ordered Date perflutren lipid (DEFINITY) 1.5 mL in sodium chloride 0.9% 10 mL syringe 1 03/06/2019 documented in this encounter Care Teams Journeyman Wireman Relationship Specialty Start Date End Date Jarred Rod MD PCP - General 09/16/16 documented as of this encounter
--- OUTSIDE RECORDS SUMMARY | 2024-03-02 22:17 | XMS_ITS | Encounter Summary ---
Author Organization [facility] Facility Care Team Providers Care Check Processing Clerk Name Role Phone Jarred Rod MD Primary Care Provider +1- [phone] Encounter Details Date Type Department Care Team (Latest Contact Info) Description 02/20/2019 Travel Social History Tobacco Use Types Packs/Day Years Used Date Smoking Tobacco: Never Alcohol Use Standard Drinks/Week Comments Not Currently 0 (1 standard drink = 0.6 oz pur e alcohol) Comments No Sex and Gender Information Value Date Recorded Sex Assigned at Not on file Legal Sex Female 10:55 AM FILLER SIFTER MACHINE Gender Identity Not on file Sexual Orientation Not on file documented as of this encounter Plan of Treatment Not on file documented as of this encounter Visit Diagnoses Not on filedocumented in this encounter Care Teams Check Processing Clerk Relationship Specialty Start Date End Date Jarred Rod MD PCP - General 09/16/16 documented as of this encounter
--- OUTSIDE RECORDS SUMMARY | 2024-03-02 22:18 | XMS_ITS | Encounter Summary ---
Author Organization [facility] Healthcare Address [address] [place] [address] Care Team Providers Care Hogshead Mat Assembler Name Role Phone Unavailable Primary Care Provider Unavailabl e Encounter Details Date Type Department Care Team (Latest Contact Info) Description 02/23/2014 5:00 PM PRESS BRAKE OPERATOR Hospital Encounter [facility] Inocente Chavez MD [address] [place] [address] Urinary frequency Social History Tobacco Use Types Packs/Day Years Used Date Smoking Tobacco: Never Assessed Comments Unknown Sex and Gender Information Value Date Recorded Sex Assigned at Not on file Legal Sex Female 10:55 AM PRESS BRAKE OPERATOR Gender Identity Not on file Sexual Orientation Not on file documented as of this encounter Plan of Treatment Not on file documented as of this encounter Visit Diagnoses Diagnosis Urinary frequency documented in this encounter
--- OUTSIDE RECORDS SUMMARY | 2024-03-02 22:18 | XMS_ITS | Encounter Summary ---
Author Organization [facility] Healthcare Address [address] [place] [address] Care Team Providers Care Water Service Dispatcher Name Role Phone Unavailable Primary Care Provider Unavailabl e Encounter Details Date Type Department Care Team (Late st Contact Info) Description 07/18/2012 8:19 AM CDT - 07/18/2012 11:59 PM CDT Hospital Encounter [facility] Gera Patterson MD [address] [place] [address] [address] Hydronephrosis; Other specified disorders of kidney and ureter Social History Tobacco Use Types Packs/Day Years Used Date Smoking Tobacco: Never Assessed Comments Unknown Sex and Gender Information Value Date Recorded Sex Assigned at Not on file Legal Sex Female 10:55 AM FOOD AND BEVERAGE CHECKER Gender Identity Not on file Sexual Orientation Not on file documented as of this encounter Plan of Treatment Not on file documented as of this encounter Procedures Procedure Name Priority Date/Time Associated Diagnosis Comments NM DIURETIC RENAL IMAGING (LASIX RENAL SCAN) Routine 07/18/2012 11:00 AM CDT documented in this encounter Results * NM Renal Flow And Function W Pharm (07/18/2012 11:00 AM CDT) Anatomical Region Laterality Modality Body N/A Nuclear Medicine 07/18/2012 11:0 0 AM CDT Narrative 07/19/2012 8:49 AM CDT DATE OF EXAM: ??Jul 18 2012 11:00AM Acc#: ??[id number] ??ENM 0041 - NM Renal Flow/Func W/WO Pharm ?? DIAGNOSIS: ??HYDRONEPHROSIS CLINICAL HISTORY: ?? HYDRONEPHROSIS ?? RESULT: \ NUCLEAR MEDICINE RENAL FLOW AND FUNCTION WITHOUT AND WITH LASIX: HISTORY: ??Right hydronephrosis. 10.4 mCi technetium 99m MAG-3 was intravenously administered for purposes of renal flow and function exam. Bilateral renal flow and renogram curves were acquired. Hjkk-nj-cais tracer activity of the right kidney is beyond 20 minutes and for the left it is 5 minutes. Time to one-half peak tracer activity of the left kidney is nine minutes. Differential perfusion is 45% on the right and 55% on the left. There is no radio tracer identified involving the right renal pelvis or ureter in the first 20 minutes. Following 40 mg Lasix intravenously, right renal T-1/2 of 10.3 minutes is noted. Washout of radiotracer is noted. There is no distention of the ureters. Persistent right pyelocaliectasis is noted on the post-void image. IMPRESSION: ?\ 1. SIGNIFICANTLY IMPAIRED RIGHT RENAL EXCRETION WITH T-1/2 BEYOND 20 MINUTES ON PRELASIX IMAGING. WASHOUT, HOWEVER, IS NOTED WITH LASIX ADMINISTRATION. FINDINGS ARE SIMILAR UPON COMPARISON WITH PREVIOUS EXAM DATED 04/25/2012. 2. UNREMARKABLE LEFT RENAL SCINTIGRAPHY. HASHER MACHINE OPERATOR: ??LB3 TRANSCRIBE DATE/TIME: ??Jul 18 2012 ??8:47P RADIOLOGIST: ??MEMO LEDESMA M.D. ??READ ON: ??Jul 18 2012 ??4:42P ORDERING DR: GERA REDMOND M.D. THIS DOCUMENT HAS BEEN ELECTRONICALLY SIGNED BY: ??MEMO LEDESMA M.D. ??ON: ??Jul 19 2012 ??8:49A Procedure Note Provider, MD Dawson - 06/21/2016 DATE OF EXAM: Jul 18 2012 11:00AM Acc#: [id number] [facility] 0041 - NM Renal Flow/Func W/WO Pharm DIAGNOSIS: HYDRONEPHROSIS CLINICAL HISTORY: HYDRONEPHROSIS RESULT: \ NUCLEAR MEDICINE RENAL FLOW AND FUNCTION WITHOUT AND WITH LASIX: HISTORY: Right hydronephrosis. 10.4 mCi technetium 99m MAG-3 was intravenously administered for purposes of renal flow and function exam. Bilateral renal flow and renogram curves were acquired. Ommj-sk-sdbd tracer activity of the right kidney is beyond 20 minutes and for the left it is 5 minutes. Time to one-half peak tracer activity of the left kidney is nine minutes. Differential perfusion is 45% on the right and 55% on the left. There is no radio tracer identified involving the right renal pelvis or ureter in the first 20 minutes. Following 40 mg Lasix intravenously, right renal T-1/2 of 10.3 minutes is noted. Washout of radiotracer is noted. There is no distention of the ureters. Persistent right pyelocaliectasis is noted on the post-void image. IMPRESSION: \ 1. SIGNIFICANTLY IMPAIRED RIGHT RENAL EXCRETION WITH T-1/2 BEYOND 20 MINUTES ON PRELASIX IMAGING. WASHOUT, HOWEVER, IS NOTED WITH LASIX ADMINISTRATION. FINDINGS ARE SIMILAR UPON COMPARISON WITH PREVIOUS EXAM DATED 04/25/2012. 2. UNREMARKABLE LEFT RENAL SCINTIGRAPHY. HASHER MACHINE OPERATOR: LB3 TRANSCRIBE DATE/TIME: Jul 18 2012 8:47P RADIOLOGIST: MEMO LEDESMA M.D. READ ON: Jul 18 2012 4:42P ORDERING DR: GERA REDMOND M.D. THIS DOCUMENT HAS BEEN ELECTRONICALLY SIGNED BY: MEMO LEDESMA M.D. ON: Jul 19 2012 8:49A us Historical Provider MD PATRICIA BOLAÑOS PROCEDURES Final R esult documented in this encounter Visit Diagnoses Diagnosis Hydronephrosis Other specified disorders of kidney and ureter documented in this encounter
--- OUTSIDE RECORDS SUMMARY | 2024-03-02 22:18 | XMS_ITS | Encounter Summary ---
Author Organization [facility] Healthcare Address [address] [place] [address] Care Team Providers Care River Guide Name Role Phone Unavailable Primary Care Provider Unavailabl e Encounter Details Date Type Department Care Team (Late st Contact Info) Description 05/30/2012 8:01 AM CDT - 05/30/2012 9:50 AM CDT Hospital Encounter [facility] Gera Patterson MD [address] [place] [address] [address] Hydronephrosis; Stricture or kinking of ureter Social History Tobacco Use Types Packs/Day Years Used Date Smoking Tobacco: Never Assessed Comments Unknown Sex and Gender Information Value Date Recorded Sex Assigned at Not on file Legal Sex Female 10:55 AM SENIOR APPLICATIONS ARCHITECT Gender Identity Not on file Sexual Orientation Not on file documented as of this encounter Plan of Treatment Not on file documented as of this encounter Procedures Procedure Name Priority Date/Time Associated Diagnosis Comments NEPHROSTOGRAPHY Routine 05/30/2012 9:40 AM CDT documented in this encounter Results * NEPHROSTOGRAPHY (05/30/2012 9:40 AM CDT) Anatomical Region Laterality Modality Body N/A Radiographic Shelli ging 05/30/2012 9:40 AM CDT Narrative 05/30/2012 1:50 PM CDT IMAGES NOT AVAILABLE IN CLINICAL DESKTOP ? FILM(S) AVAILABLE IN RADIOLOGY BUNDLE: Acc#: ??[id number] DILCIA 0141 - UROGRAPHY ANTEGRADE ?? DATE OF EXAM: ??May 30 2012 ??9:40AM DIAGNOSIS: ??HYDRONEPHROSIS CLINICAL HISTORY: ?? POSSIBLE PULL TUBE ?? RESULT: \ EXAMINATION: ??NEPHROSTOGRAM VIA EXISTING CATHETER: DATE: ??05/30/2012. 42-year-old female with right ureteropelvic junction stenosis and hydronephrosis. ??The patient has an existing right percutaneous nephrostomy catheter. ??Nephrostogram with possible removal of this catheter is requested. FLUOROSCOPY TIME: ??1.5 minutes. TECHNIQUE: ??The risks, benefits, and alternatives were discussed and informed consent was obtained. ??Prior to beginning of the procedure, a universal protocol was performed to confirm the patient's identity and the planned procedure. ??Maximum sterile barriers including cap, mask, hand hygiene, sterile gloves, sterile gown, sterile drape, and 2% chlorhexidine for cutaneous antisepsis were used. The patient was placed prone on the fluoroscopy table and a cigarette examiner image was obtained. ??Next, dilute contrast was injected through the patient's existing right percutaneous nephrostomy catheter. ??Multiple fluoroscopic images were obtained in different projections. ??At the end of the procedure, the catheter was capped. ?? FINDINGS: ??Comparison is made to the antegrade nephrostogram performed on 05/09/2012. ??Moderate right hydronephrosis is unchanged and is likely chronic in nature. ??Moderate narrowing of the right ureteropelvic junction is unchanged. ??However, contrast was identified within the right ureter extending to the bladder. ??The mid and distal right ureter appears normal. IMPRESSION: ?\ MODERATE RIGHT HYDRONEPHROSIS AND MODERATE RIGHT URETEROPELVIC JUNCTION STENOSIS, UNCHANGED. THE RESULTS OF THIS EXAMINATION WERE DISCUSSED WITH DR. LUCERO AFTER THE PROCEDURE ON 05/30/2012. PLAN: ??The patient is instructed to follow up with Dr. Lucero on 05/31/2012. ??The existing right percutaneous nephrostomy catheter was capped. ??The patient was given instruction that if she should become symptomatic with right flank discomfort, that the percutaneous nephrostomy catheter should be connected to a drainage bag. NUTRITION EDUCATOR: ??TR6 TRANSCRIBE DATE/TIME: ??May 30 2012 12:30P RADIOLOGIST: ??BETO COFFEY M.D. ??READ ON: ??May 30 2012 10:22A ORDERING DR: GERA LUCERO M.D. THIS DOCUMENT HAS BEEN ELECTRONICALLY SIGNED BY: ??BETO COFFEY M.D. ??ON: ??May 30 2012 ??1:50P Procedure Note Provider, MD Dawson - 06/21/2016 IMAGES NOT AVAILABLE IN CLINICAL DESKTOP FILM(S) AVAILABLE IN RADIOLOGY BUNDLE: Acc#: [id number] DILCIA 0141 - UROGRAPHY ANTEGRADE DATE OF EXAM: May 30 2012 9:40AM DIAGNOSIS: HYDRONEPHROSIS CLINICAL HISTORY: POSSIBLE PULL TUBE RESULT: \ EXAMINATION: NEPHROSTOGRAM VIA EXISTING CATHETER: DATE: 05/30/2012. 42-year-old female with right ureteropelvic junction stenosis and hydronephrosis. The patient has an existing right percutaneous nephrostomy catheter. Nephrostogram with possible removal of this catheter is requested. FLUOROSCOPY TIME: 1.5 minutes. TECHNIQUE: The risks, benefits, and alternatives were discussed and informed consent was obtained. Prior to beginning of the procedure, a universal protocol was performed to confirm the patient's identity and the planned procedure. Maximum sterile barriers including cap, mask, hand hygiene, sterile gloves, sterile gown, sterile drape, and 2% chlorhexidine for cutaneous antisepsis were used. The patient was placed prone on the fluoroscopy table and a cigarette examiner image was obtained. Next, dilute contrast was injected through the patient's existing right percutaneous nephrostomy catheter. Multiple fluoroscopic images were obtained in different projections. At the end of the procedure, the catheter was capped. FINDINGS: Comparison is made to the antegrade nephrostogram performed on 05/09/2012. Moderate right hydronephrosis is unchanged and is likely chronic in nature. Moderate narrowing of the right ureteropelvic junction is unchanged. However, contrast was identified within the right ureter extending to the bladder. The mid and distal right ureter appears normal. IMPRESSION: \ MODERATE RIGHT HYDRONEPHROSIS AND MODERATE RIGHT URETEROPELVIC JUNCTION STENOSIS, UNCHANGED. THE RESULTS OF THIS EXAMINATION WERE DISCUSSED WITH DR. LUCERO AFTER THE PROCEDURE ON 05/30/2012. PLAN: The patient is instructed to follow up with Dr. Lucero on 05/31/2012. The existing right percutaneous nephrostomy catheter was capped. The patient was given instruction that if she should become symptomatic with right flank discomfort, that the percutaneous nephrostomy catheter should be connected to a drainage bag. NUTRITION EDUCATOR: TRAron TRANSCRIBE DATE/TIME: May 30 2012 12:30P RADIOLOGIST: BETO COFFEY M.D. READ ON: May 30 2012 10:22A ORDERING DR: GERA LUCERO M.D. THIS DOCUMENT HAS BEEN ELECTRONICALLY SIGNED BY: BETO COFFEY M.D. ON: May 30 2012 1:50P us Historical Provider MD GOMEZ XR PROCEDURES Final R esult documented in this encounter Visit Diagnoses Diagnosis Hydronephrosis Stricture or kinking of ureter documented in this encounter
--- OUTSIDE RECORDS SUMMARY | 2024-03-02 22:18 | XMS_ITS | Encounter Summary ---
Author Organization [facility] Healthcare Address [address] [place] [address] Care Team Providers Care Cotton Sampler Name Role Phone Unavailable Primary Care Provider Unavailabl e Encounter Details Date Type Department Care Team (Late st Contact Info) Description 02/04/2014 8:12 AM COURIER DRIVER - 02/04/2014 1:47 PM COURIER DRIVER Hospital Encounter [facility] Narendra Youngblood, DO [address] [facility] [address] [place] [address] Abdominal pain of other specified site; Type 2 or unspecified type diabetes mellitus; Calculus of kidney; Hydronephrosis; Diaphragmatic hernia; Esophageal reflux; Pain in soft tissues of limb; Essential hypertension; Acquired absence of both cervix and uterus; Personal history of allergy to penicillin Social History Tobacco Use Types Packs/Day Years Used Date Smoking Tobacco: Never Assessed Comments Unknown Sex and Gender Information Value Date Recorded Sex Assigned at Not on file Legal Sex Female 10:55 AM COURIER DRIVER Gender Identity Not on file Sexual Orientation Not on file documented as of this encounter Plan of Treatment Not on file documented as of this encounter Procedures Procedure Name Priority Date/Time Associated Diagnosis Comments PLASMA COMPREHENSIVE METABOLIC PANEL Routine 02/04/2014 11:45 AM COURIER DRIVER BLOOD CELL COUNT (CBC), MORPHOLOGIC EXAM Routine 02/04/2014 11:45 AM COURIER DRIVER PRE-PRELIMINARY CT SCAN REPORT Routine 02/04/2014 11:02 AM COURIER DRIVER RENAL COMPUTED TOMOGRAPHY (CT) WITHOUT CONTRAST, STONE PROTOCOL Routine 02/04/2014 11:02 AM COURIER DRIVER XR FOOT 3+ VW Routine 02/04/2014 10:07 AM COURIER DRIVER URINALYSIS Routine 02/04/2014 3:25 AM COURIER DRIVER DISCHARGE LABORATORY CUMULATIVE REPORT 02/04/2014 documented in this encounter Results * (ABNORMAL) Blood cell count (CBC), morphologic exam (02/04/2014 11:45 AM COURIER DRIVER) WBC 9.3 3.8 - 9.8 K/cumm HISTORICAL RESULTS RBC 4.33 4.20 - 5.20 M/cumm HISTORICAL RESULTS Hgb 13.5 12.0 - 15.0 g/dl HISTORICAL RESULTS Hct 37.7 37.0 - 47.0 % HISTORICAL RESULTS MCV 87.1 82.0 - 96.0 fl HISTORICAL RESULTS MCH 31.2 27.0 - 32.0 pg HISTORICAL RESULTS MCHC 35.8(H) 29.0 - 35.0 g/dl HISTORICAL RESULTS Platelets 255 150 - 450 K/cumm HISTORICAL RESULTS RDW 40.3 36.4 - 46.3 fl HISTORICAL RESULTS Rdw 12.5 11.5 - 14.5 % HISTORICAL RESULTS MPV 12.3 8.6 - 12.6 fl HISTORICAL RESULTS Neutrophils 62.0 42.0 - 85.0 % HISTORICAL RESULTS Neutrophils, abs 5.8 2.1 - 8.5 K/cumm HISTORICAL RESULTS Lymphocytes 34.0 16.0 - 52.0 % HISTORICAL RESULTS Lymphocytes, abs 3.2 0.8 - 5.2 K/cumm HISTORICAL RESULTS Monos 3.3 1.0 - 13.0 % HISTORICAL RESULTS Monocytes, absolute 0.3 0.0 - 1.3 K/cumm HISTORICAL RESULTS Eosinophils 0.4 0.0 - 7.0 % HISTORICAL RESULTS Eosinophils, abs 0.0 0.0 - 0.7 K/cumm HISTORICAL RESULTS Basophils 0.2 0.0 - 4.0 % HISTORICAL RESULTS Basophils, abs 0.0 0.0 - 0.4 K/cumm HISTORICAL RESULTS Young granulocytes, % 0.1 0.0 - 1.0 % HISTORICAL RESULTS Young granulocyte 0.01 0.00 - 0.10 K/cumm HISTORICAL RESULTS NRBC 0.0 0.0 - 0.2 #/100 WBC HISTORICAL RESULTS NRBC, abs 0.00 0.00 - 0.01 K/cumm HISTORICAL RESULTS Blood specimen (specimen) 02/04/2014 11:45 AM COURIER DRIVER Narendra GBelem Fredis DO LAB BLOOD ORDERABLES Final Result HISTORICAL RESULTS * (ABNORMAL) Plasma comprehensive metabolic panel (02/04/2014 11:45 AM COURIER DRIVER) BUN 27(H) 8 - 24 mg/dl HISTORICAL RESULTS Glucose 316(H) 70 - 199 mg/dl HISTORICAL RESULTS Sodium 132(L) 135 - 145 mmol/L HISTORICAL RESULTS K, pl 4.4 3.5 - 5.1 mmol/L HISTORICAL RESULTS Chloride 96(L) 100 - 114 mmol/L HISTORICAL RESULTS CO2 29 22 - 32 mmol/L HISTORICAL RESULTS Creatinine 0.93 0.60 - 1.30 mg/dl HISTORICAL RESULTS AST 13 7 - 40 Units/L HISTORICAL RESULTS ALT 16 1 - 45 Units/L HISTORICAL RESULTS Alk phos 113(H) 30 - 110 Units/L HISTORICAL RESULTS Calcium 9.7 8.4 - 10.5 mg/dl HISTORICAL RESULTS Bilirubin 0.60 0.10 - 1.30 mg/dl HISTORICAL RESULTS Protein, pl 7.9 6.0 - 8.3 g/dl HISTORICAL RESULTS Alb 3.5 3.2 - 4.8 g/dl HISTORICAL RESULTS Globulin 4.4(H) 2.0 - 4.3 g/dl HISTORICAL RESULTS A. gap 11 8 - 16 mmol/L HISTORICAL RESULTS eGFR 66 90 - 200 ml/min/1.7 3 m2 HISTORICAL RESULTS Comment: If this individual is -Afghan, multiply result by 1.21 Repeated results of less than 60 is indicative of chronic kidney disease. MDRD formula has not been validated on individuals greater than 70 years old. Plasma 02/04/2014 11:4 5 AM COURIER DRIVER Narendra G. Fredis DO LAB BLOOD ORDERABLES Final Result HISTORICAL RESULTS * RENAL COMPUTED TOMOGRAPHY (CT) WITHOUT CONTRAST, STONE PROTOCOL (02/04/2014 11:02 AM COURIER DRIVER) Anatomical Region Laterality Modality N/A Computed Tomogra phy 02/04/2014 11:0 2 AM COURIER DRIVER Narrative 02/05/2014 8:51 AM COURIER DRIVER DATE OF EXAM: ??Feb 04 2014 11:02AM Acc#: ??[id number] ??ECT 0178 - CT KUB Stone WO ?? DIAGNOSIS: ??SIDE PAIN CLINICAL HISTORY: ?? Renal Stone Protocol_Renal Stone Protocol RESULT: \ CT KUB STONE WITHOUT INTRAVENOUS CONTRAST, 02/04/2014. HISTORY: ??Right-sided flank pain which started one week ago. ??History of right kidney surgery. ??Pain is associated with nausea and suprapubic abdominal pain. ??History of hysterectomy for fibroid tumors. ?? CORRELATION: ??The images of CT-guided right percutaneous nephrostomy dated 05/09/2012. ?? TECHNIQUE: ??Spiral axial scanning and reconstructed coronal imaging of the abdomen and pelvis are performed without intravenous contrast administration. FINDINGS: ??On the axial image #89, there is a stable focal calcification surrounded by soft tissue which apparently is a vascular calcification rather than calcification of the ureter. ??The normal right ureter is seen adjacent to this calcification and dorsal to it. ??The hydronephrosis of the right kidney is stable. ??There is a non-obstructing calcified stone in the right kidney on axial image #37. ??The normal size of the ureter and apparent hydronephrosis of the right kidney are in favor of ureteropelvic junction stenosis. ??The overall appearance of the right kidney has not changed from the prior study. ?? In the left kidney, there is a 4-mm stable non-obstructing calcified stone and no evidence of hydronephrosis and hydroureter. ??No other urinary stones are identified and the urinary bladder has normal wall thickness. The spleen with multiple calcified granulomata is stable. ??The renal parenchyma, pancreas, adrenal glands and the imaged portion of the liver are within normal limits. ?? A normal retrocecal appendix extending cephalad is seen in the right lower quadrant on the axial images #110-75. ??The imaged bowel has normal caliber and wall thickness. ??The urinary bladder has normal wall thickness. There is a small sliding hiatal hernia with air and fluid in distal esophagus suggestive of gastroesophageal reflux disease. ??The imaged lung bases are clear. ?? The bone window images are within normal limits for the patient's age. IMPRESSION: ?\ 1. ??NO ACUTE PROCESS OR SIGNIFICANT INTERVAL CHANGES SINCE 05/09/2012 ARE IDENTIFIED. ?? 2. ??HYDRONEPHROSIS OF THE RIGHT KIDNEY MOST LIKELY DUE TO URETEROPELVIC JUNCTION STENOSIS, IS STABLE. 3. ??THE NON-OBSTRUCTING CALCIFIED RENAL STONES ARE STABLE AND APPARENT VASCULAR CALCIFICATION OF THE RIGHT MID ABDOMEN ADJACENT TO THE NORMAL URETER, HAS NOT CHANGED. 4. ??CHRONIC GRANULOMATOUS SCARRING. ?? 5. ??A NORMAL APPENDIX IS VISIBLE. ?? 6. ??SMALL SLIDING HIATAL HERNIA WITH FINDINGS OF GASTROESOPHAGEAL REFLUX DISEASE. ? SET UP MECHANIC CROWN ASSEMBLY MACHINE: ??TR6 TRANSCRIBE DATE/TIME: ??Feb 04 2014 ??2:25P RADIOLOGIST: ??COLIN COLE M.D. ??READ ON: ??Feb 04 2014 11:36A ORDERING DR: NARENDRA YOUNGBLOOD M.D. THIS DOCUMENT HAS BEEN ELECTRONICALLY SIGNED BY: ??COLIN COLE M.D. ??ON: ??Feb 05 2014 ??8:51A Procedure Note Provider, MD Dawson - 06/21/2016 DATE OF EXAM: Feb 04 2014 11:02AM Acc#: [id number] ECT 0178 - CT KUB Stone WO DIAGNOSIS: SIDE PAIN CLINICAL HISTORY: Renal Stone Protocol_Renal Stone Protocol RESULT: \ CT KUB STONE WITHOUT INTRAVENOUS CONTRAST, 02/04/2014. HISTORY: Right-sided flank pain which started one week ago. History of right kidney surgery. Pain is associated with nausea and suprapubic abdominal pain. History of hysterectomy for fibroid tumors. CORRELATION: The images of CT-guided right percutaneous nephrostomy dated 05/09/2012. TECHNIQUE: Spiral axial scanning and reconstructed coronal imaging of the abdomen and pelvis are performed without intravenous contrast administration. FINDINGS: On the axial image #89, there is a stable focal calcification surrounded by soft tissue which apparently is a vascular calcification rather than calcification of the ureter. The normal right ureter is seen adjacent to this calcification and dorsal to it. The hydronephrosis of the right kidney is stable. There is a non-obstructing calcified stone in the right kidney on axial image #37. The normal size of the ureter and apparent hydronephrosis of the right kidney are in favor of ureteropelvic junction stenosis. The overall appearance of the right kidney has not changed from the prior study. In the left kidney, there is a 4-mm stable non-obstructing calcified stone and no evidence of hydronephrosis and hydroureter. No other urinary stones are identified and the urinary bladder has normal wall thickness. The spleen with multiple calcified granulomata is stable. The renal parenchyma, pancreas, adrenal glands and the imaged portion of the liver are within normal limits. A normal retrocecal appendix extending cephalad is seen in the right lower quadrant on the axial images #110-75. The imaged bowel has normal caliber and wall thickness. The urinary bladder has normal wall thickness. There is a small sliding hiatal hernia with air and fluid in distal esophagus suggestive of gastroesophageal reflux disease. The imaged lung bases are clear. The bone window images are within normal limits for the patient's age. IMPRESSION: \ 1. NO ACUTE PROCESS OR SIGNIFICANT INTERVAL CHANGES SINCE 05/09/2012 ARE IDENTIFIED. 2. HYDRONEPHROSIS OF THE RIGHT KIDNEY MOST LIKELY DUE TO URETEROPELVIC JUNCTION STENOSIS, IS STABLE. 3. THE NON-OBSTRUCTING CALCIFIED RENAL STONES ARE STABLE AND APPARENT VASCULAR CALCIFICATION OF THE RIGHT MID ABDOMEN ADJACENT TO THE NORMAL URETER, HAS NOT CHANGED. 4. CHRONIC GRANULOMATOUS SCARRING. 5. A NORMAL APPENDIX IS VISIBLE. 6. SMALL SLIDING HIATAL HERNIA WITH FINDINGS OF GASTROESOPHAGEAL REFLUX DISEASE. SET UP MECHANIC CROWN ASSEMBLY MACHINE: TR6 TRANSCRIBE DATE/TIME: Feb 04 2014 2:25P RADIOLOGIST: COLIN COLE M.D. READ ON: Feb 04 2014 11:36A ORDERING DR: NARENDRA YOUNGBLOOD M.D. THIS DOCUMENT HAS BEEN ELECTRONICALLY SIGNED BY: COLIN COLE M.D. ON: Feb 05 2014 8:51A us Historical Provider MD GOMEZ CT PROCEDURES Final R esult * PRE-PRELIMINARY CT SCAN REPORT (02/04/2014 11:02 AM COURIER DRIVER) Anatomical Region Laterality Modality N/A Computed Tomogra phy 02/04/2014 11:0 2 AM COURIER DRIVER Narrative 02/04/2014 11:36 AM COURIER DRIVER ED IMAGING PRELIMINARY RESULT PATIENT: LENA YOUNGBLOOD MR#: [id number] : [id number] SEX: ??F Procedure: ECTSTON1 CT KUB Stone WO ?? Exam Date: Acc#: [id number] Pt_Class: E ? Priority: ??STAT Reason: Renal Stone Protocol Order Comments: Ord Dr: NARENDRA YOUNGBLOOD Preliminary Reading Doctor: COLIN COLE M.D., RADIOLOGIST Is this a Critical Result? No ? Result called to: ? Is this Study Normal or Abnormal?: Abnormal ? Comments: NO CHANGE FROM 05/09/2012 ? 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 Normal bladder ? Additional Comments Line 2: stable b/l solitory nonobstructing small renal stones ? Additional Comments Line 3: small sliding hiatal hernia w/ GERD ? Additional Comments Line 4: chronic granulomatous scarring. Normal appendix in RLQ ? Procedure Note Provider, Historical, - 06/21/2016 ED IMAGING PRELIMINARY RESULT PATIENT: LENA YOUNGBLOOD MR#: [id number] : [id number] SEX: F Procedure: ECTSTON1 CT KUB Stone WO Exam Date: Acc#: [id number] Pt_Class: E Priority: STAT Reason: Renal Stone Protocol Order Comments: Ord Dr: NARENDRA YOUNGBLOOD Preliminary Reading Doctor: COLIN COLE M.D., RADIOLOGIST Is this a Critical Result? 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 Normalappendix in RLQ us Historical Provider IMG CT PROCEDURES Final R esult * XR Foot 3+ Vw (02/04/2014 10:07 AM COURIER DRIVER) Anatomical Region Laterality Modality N/A Radiographic Shelli ging 02/04/2014 10:0 7 AM COURIER DRIVER Narrative 02/04/2014 1:20 PM COURIER DRIVER DATE OF EXAM: ??Feb 04 2014 10:07AM Acc#: ??[id number] ??EDX 0286 - XR Foot Min 3 Views L ?? DIAGNOSIS: ??SIDE PAIN CLINICAL HISTORY: ?? Pain_Pain RESULT: \ EXAMINATION: ??LEFT FOOT, THREE VIEWS FINDINGS: ??There is no acute fracture or dislocation. ??Mild degenerative changes involve the midfoot. ??A small spur projects from the plantar surface of the calcaneus. ??Otherwise, the joint spaces and osseous density appear normal. ?? IMPRESSION: ?\ NO ACUTE OSSEOUS ABNORMALITY, ABOVE. ?? SET UP MECHANIC CROWN ASSEMBLY MACHINE: ??PW2 TRANSCRIBE DATE/TIME: ??Feb 04 2014 ??1:07P RADIOLOGIST: ??BETO COFFEY M.D. ??READ ON: ??Feb 04 2014 10:09A ORDERING DR: NARENDRA YOUNGBLOOD M.D. THIS DOCUMENT HAS BEEN ELECTRONICALLY SIGNED BY: ??BETO COFFEY M.D. ??ON: ??Feb 04 2014 ??1:20P Procedure Note Provider, Dawson, - 06/21/2016 DATE OF EXAM: Feb 04 2014 10:07AM Acc#: [id number] EDX 0286 - XR Foot Min 3 Views L DIAGNOSIS: SIDE PAIN CLINICAL HISTORY: Pain_Pain RESULT: \ EXAMINATION: LEFT FOOT, THREE VIEWS FINDINGS: There is no acute fracture or dislocation. Mild degenerative changes involve the midfoot. A small spur projects from the plantar surface of the calcaneus. Otherwise, the joint spaces and osseous density appear normal. IMPRESSION: \ NO ACUTE OSSEOUS ABNORMALITY, ABOVE. SET UP MECHANIC CROWN ASSEMBLY MACHINE: PW2 TRANSCRIBE DATE/TIME: Feb 04 2014 1:07P RADIOLOGIST: BETO COFFEY M.D. READ ON: Feb 04 2014 10:09A ORDERING DR: NARENDRA YOUNGBLOOD M.D. THIS DOCUMENT HAS BEEN ELECTRONICALLY SIGNED BY: BETO COFFEY M.D. ON: Feb 04 2014 1:20P us Historical Provider IMGeorge XR PROCEDURES Final R esult * (ABNORMAL) Urinalysis (02/04/2014 3:25 AM COURIER DRIVER) Color, ur Straw HISTORICAL RESULTS Clarity, ur Clear Clear HISTORIC AL RESULTS pH, ur 6.0 5 - 7 HISTORICAL RESULTS Specific gravity, ur 1.013 1.001 - 1.033 HISTORICAL RESULTS Protein, ur Negative Negative HISTORIC AL RESULTS Glucose, ur 3+(A) Negative HISTORIC AL RESULTS Ketones, ur Negative Negative HISTORIC AL RESULTS Bilirubin, ur Negative Negative HISTOR ICAL RESULTS U Blood Negative Negative HISTORICAL RESULTS Urobilinogen, quant, ur Normal 0.2 - 1.0 mg/dl HISTORICAL RESULTS Nitrites, ur Negative Negative HISTORI SEVERIANO RESULTS Leukocyte esterase, ur Negative Negative HISTORICAL RESULTS Epithelial cells, ur 0 - 2 /hpf HISTORICAL RESULTS Mucus Present HISTORICAL RESULTS Urine 02/04/2014 3:25 AM COURIER DRIVER Narrative HISTORICAL RESULTS - 02/04/2014 4:21 AM COURIER DRIVER Result negative for significant evidence of urinary tract infection. Urine Culture not indicated. ? Screening for urinary tract infection by urinalysis has an estimated false negative rate of 5%. ??This should be taken into account in patient management. ? Narendra Youngblood DO LAB BLOOD ORDERABLES Final Result HISTORICAL RESULTS * DISCHARGE LABORATORY CUMULATIVE REPORT (02/04/2014) Narrative 02/04/2014 Ordered by an unspecified provider. Historical Provider LAB BLOOD ORDERABLES Katheryn l Result documented in this encounter Visit Diagnoses Diagnosis Abdominal pain of other specified site Type 2 or unspecified type diabetes mellitus Calculus of kidney Hydronephrosis Diaphragmatic hernia Diaphragmatic hernia without mention of obstruction or gangrene Esophageal reflux Pain in soft tissues of limb Essential hypertension Unspecified essential hypertension Acquired absence of both cervix and uterus Personal history of allergy to penicillin documented in this encounter
--- OUTSIDE RECORDS SUMMARY | 2024-03-02 22:18 | XMS_ITS | Encounter Summary ---
Author Organization [facility] Healthcare Address [address] [place] [address] Care Team Providers Care Office Supervisor Name Role Phone Unavailable Primary Care Provider Unavailabl e Encounter Details Date Type Department Care Team (Late st Contact Info) Description 11/23/2014 10:14 AM CDT Hospital Encounter [facility] Jarred Rod MD [address] [place] [id number] Liver disease; Hydronephrosis Social History Tobacco Use Types Packs/Day Years Used Date Smoking Tobacco: Never Assessed Comments Unknown Sex and Gender Information Value Date Recorded Sex Assigned at Not on file Legal Sex Female 10:55 AM ACCOUNTANT COST Gender Identity Not on file Sexual Orientation Not on file documented as of this encounter Plan of Treatment Not on file documented as of this encounter Procedures Procedure Name Priority Date/Time Associated Diagnosis Comments MRI ABDOMEN W WO CONTRAST Routine 11/23/2014 11:15 AM CDT documented in this encounter Results * MRI Abdomen W WO Contrast (11/23/2014 11:15 AM CDT) Anatomical Region Laterality Modality Body N/A Magnetic Resonan ce 11/23/2014 11:1 5 AM CDT Impressions 12/08/2014 5:20 PM CDT ?? 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 ??No further follow-up needed. Moderate to severe right-sided hydronephrosis but the right ureter is normal in caliber. Therefore this could reflect UPJ obstruction. ??Right renal cortical thinning. ??No significant change. THIS IS AN ELECTRONICALLY VERIFIED REPORT 11/24/2014 10:31 AM: ??Adenike Breen M.D. Adenike Breen M.D. :bb 04:10 PM 04:14 PM SARAH [EOD] Narrative 12/08/2014 5:20 PM CDT EXAMINATION: ??Abdomen MR with contrast, EOVIST HISTORY: ??Liver lesion here for follow-up. ??Lesion detected incidentally on CT 03/07/14 and follow-up with a MRI with Multihance contrast 03/23/14. ??Today for Eovist contrast TECHNIQUE: ??Multiplanar multisequence MR images of abdomen obtained before after administration of Eovist. ??9 mL Eovist injected into the right antecubital fossa without complication. ??Dynamic postcontrast sequences including a 20-minute delayed sequence obtained. Comparison: ??Prior MRI with Multihance 03/23/[address] abdomen and pelvis 03/07/14 Findings: ??In the left medial lobe of liver in segment 5 is a 1.4 cm focus of signal abnormality. ??It is vaguely hypointense on T1, vaguely hyperintense on T2, and does demonstrate brisk arterial enhancement after the administration of you cyst. ??The lesion is hyperintense on hepatobiliary phase imaging performed 20 minutes after injection of contrast as seen on series 1401 image 52. 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 ??No new liver lesion. ??1 cm splenic cyst. ?? The pancreas, gallbladder, adrenal glands, left kidney have a normal appearance. 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 ??Moderate right-sided hydronephrosis again noted but the right ureter is normal in caliber. ??There is right renal cortical thinning. Procedure Note Provider, MD Dawson - 07/06/2020 EXAMINATION: Abdomen MR with contrast, EOVIST HISTORY: Liver lesion here for follow-up. Lesion detected incidentallyon CT 03/07/14 and follow-up with a MRI with Multihance contrast 03/23/14. Todayfor Eovist contrast TECHNIQUE: Multiplanar multisequence MR images of abdomen obtained before after administration of Eovist. 9 mL Eovist injected into the right antecubital fossa without complication. Dynamic postcontrast sequences including a 20-minute delayed sequence obtained. Comparison: Prior MRI with Multihance 03/23/[address] abdomen and pelvis03/07/14 Findings: In the left medial lobe of liver in segment 5 is a 1.4 cm focusof signal abnormality. It is vaguely hypointense on T1, vaguely hyperintenseon T2, and does demonstrate brisk arterial enhancement after theadministration of you cyst. The lesion is hyperintense on hepatobiliary phase imaging performed 20 minutes after injection of contrast as seen on series 1401image 52. 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 No new liver lesion. 1 cm spleniccyst. The pancreas, gallbladder, adrenal glands, left kidney have a normal appearance. 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 Moderate right-sided hydronephrosis again noted but the right ureter is normal in caliber. There is right renal cortical thinning. 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 Nofurther follow-up needed. Moderate to severe right-sided hydronephrosis but the right ureter isnormal in caliber. Therefore this could reflect UPJ obstruction. Right renal cortical thinning. No significant change. THIS IS AN ELECTRONICALLY VERIFIED REPORT 11/24/2014 10:31 AM: Adenike Breen M.D. Adenike Breen M.D. :kristi 04:10 PM 04:14 PM SARAH [EOD] Jarred Rod MD IMG MRI PROCEDURES Final R esult documented in this encounter Visit Diagnoses Diagnosis Liver disease Unspecified disorder of liver Hydronephrosis documented in this encounter
--- OUTSIDE RECORDS SUMMARY | 2024-03-02 22:18 | XMS_ITS | Encounter Summary ---
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, uncontrolled; Polyneuropathy in diabetes (CMS/HCC) ([facility]); Urinary tract infection; Hydronephrosis; Essential hypertension; Constipation; Other and unspecified hyperlipidemia; Encounter for long-term (current) use of insulin ([facility]); Personal history of allergy to penicillin Social History Tobacco Use Types Packs/Day Years Used Date Smoking Tobacco: Never Assessed Comments Unknown Sex and Gender Information Value Date Recorded Sex Assigned at Not on file Legal Sex Female 10:55 AM APICULTURE TEACHER Gender Identity Not on file Sexual Orientation Not on file documented as of this encounter Last Filed Vital Signs Vital Sign Reading Time Taken Comments Blood Pressure 133/85 03/28/2012 11:44 AM APICULTURE TEACHER Pulse 76 03/28/2012 11:44 AM APICULTURE TEACHER Temperature - - Respiratory Rate - - Oxygen Saturation - - Inhaled Oxygen Concentration - - Weight 82.6 kg (182 lb 1.6 oz) 03/26/2012 2:15 P M APICULTURE TEACHER Height 167.6 cm (5' 5.98 ) 03/26/2012 2:15 PM CS T Body Mass Index 29.41 03/26/2012 2:15 PM APICULTURE TEACHER documented in this encounter Discharge Summaries * Dawson Antunez MD - 03/28/2012 12:00 AM CST DISCHARGE SUMMARY Patient: LENA VALLE Account: [id number] Room No: [id number] : 1970 Patient Type: IP Attending: Humble Salazar M.D. Admit Date: 03/25/2012 Dictating: Humble Salazar M.D. Disch. 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 She had a repeat renal scan, which showed no obstruction in the kidney with the stent in good position and good kidney function. Following that, the stent was removed. The pain mostly subsided and she continued to have some nagging pain probably due to her UPJ obstruction. I explained to the patient that she has not lost kidney function in a number of years. The kidney is still a good kidney and does need to have repair of the UPJ in order to correct kidney function, but if she thinks the pain is enough that she does not want to have it any longer, then the repair could be indicated on the basis of pain control. The patient will be discharged to her home. Continue on all her home medication and she will come back to the office in [address] Lucero regarding chances of a pyeloplasty. Humble Salazar M.D. EPP/ct TD: 03/28/2012 21:03 Authenticated by Humble Salazar MD On 03/29/2012 10:44:05 AM documented in this encounter H&P Notes * ProviderDawson MD - 03/25/2012 12:00 AM CST HISTORY AND PHYSICAL Patient: LENA VALLE Account: [id number] Room No: [id number] : 1970 Patient Type: IP Attending: Humble Salazar M.D. Admit Date: 03/25/2012 Dictating: Humble Salazar M.D. Disch. Date: This is a 41-year old -Burkinan female admitted to the hospital with severe right flank pain and suprapubic pain. The patient was discharged recently from the hospital after insertion of a stent which was repositioned, continued to have some pain which was not severe but called yesterday saying that she could not take it anymore, was admitted to the hospital for further pain control. The patient has a longstanding history of pyelonephrosis on the right side, seems to be a blockage. A nuclear scan done with a stent in a poor position because the distal end has migrated to the distal ureter was performed and showed blockage but then the stent was repositioned hoping that the blockage was coming from that malposition of the stent but she continued to have severe pain. PAST HISTORY: See the old chart. FAMILY HISTORY: Same. PHYSICAL EXAMINATION: The patient is in acute distress now due to severe right flank pain and suprapubic pain. Vital signs are normal. Head is normal. Neck is normal. Chest is clear. No rales or rhonchus. Heart tones are normal. No murmur or gallop. Abdomen is soft, plain, no organomegaly. There is moderate CVA tenderness on the right side of the lower abdomen. Extremities: Normal. ASSESSMENT: Right pyelonephrosis with a stent in a good position and persistent right flank pain. PLAN: The patient is to have a nuclear scan repeated. Will make further recommendations following that. Benjamin Cohn/dp TD: 03/26/2012 08:10 Authenticated by Humble Salazar MD On 03/27/2012 08:29:09 AM documented in this encounter Consult Notes * Provider, MD Dawson - 03/27/2012 12:00 AM CST CONSULTATION REPORT Patient: LENA VALLE Account: [id number] Room No: [id number] : 1970 Patient Type: IP Attending: Humble Salazar M.D. Admit Date: 03/25/2012 Consult.: Jackie Driscoll M.D. Disch. Date: Reason for Admission: Right flank pain. History of Present Illness: This is a 41-year-old black female who has a BMI of 29.41, presented to the hospital with complaints of pain in her right flank. She recently was discharged from [facility] after she had a stent placed. She had a bilateral insertion of right ureteral stent. The patient tolerated the procedure well, but she states that even when she was in the hospital during that time, she was s having pain and discomfort in her right flank area and she had hematuria as well. When she went home, she continued to have the same symptoms and she could not take it anymore, so she presented back to the hospital where Dr. Salazar readmitted her and ended up removing the stent. The patient did have a renal scan yesterday which showed persistent hydronephrosis of the right kidney, however no obstruction was seen. There was progressive washout noted. Normal left kidney. She had a right ureteric stent placed. Past History: 1. Significant for hypertension, diagnosed in 2004. 2. She suffers from type 2 diabetes. 3. Hyperlipidemia. 4. Diabetic peripheral neuropathy. Surgical History: Significant for hysterectomy and renal stent placement recent, and stent removal, which was today. Allergies: Tamoxifen. Penicillin causes hives. Family History: Significant for mother being diabetic and having hypertension. Father had history of stroke and hypertension. Social History: She is single, has 1 child. 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 She has a fiancee. Home Medications: 1. Gabapentin 300 p.o. daily. 2. Simvastatin 50 daily. 3. Lisinopril 20 b.i.d. 4. Metoprolol 75 mg daily. 5. Lantus 42 units subcutaneous at bedtime. Review of Systems: Positive for urgency, frequency, and right flank pain. Physical Examination: General: This is a 41-year-old, -Burkinan female. She is 5 feet, 6 inches. She is very pleasant and cooperative to exam. Her weight is 82.6 kg. HEENT: Her pupils are reactive to light and accommodation. Extraocular muscles are intact. No thyromegaly. No JVD. Cardiovascular: S1, S2. No murmurs. Lungs: Clear to auscultation. Abdomen: Obese, soft, nondistended. Positive bowel sounds. She has a lot of abdominal striae on her abdomen due to stretch agrawal. Extremities: Thin incongruent with her abdominal obesity. Central Nervous System: No focal neurological deficit. Laboratory Data: Hemoglobin A1c 10.8. White count 6.9, hematocrit 36.4. UA shows packed RBCs, packed WBCs. BUN is 14, glucose 135, sodium 137, creatinine 0.70. Urine cultures showed greater than 100,000 colony-forming units significant for Gardnerella vaginalis. Assessment and Plan: 1. Uncontrolled diabetes. The patient received diabetic education on her last admission and does not want to talk to spindle plumber at this admission. I have counseled her about eating healthy and exercising. 2. Hyperlipidemia. Resume her home medications. 3. Hypertension. Blood pressure is controlled. 4. Urinary tract infection. She will be controlled on Cipro, and we will recheck a UA clean catch on her. 5. Pain control. 6. Management as per Dr. Salazar of prior deep venous thrombosis and gastrointestinal prophylaxis. Further management will be based on further results. 7. Her Lantus is 25 units at bedtime. I will order maybe 10 units of Lantus in the a.m. Time Spent: More than 35 minutes. Jackie Driscoll M.D. CHERI/maritza TD: 03/27/2012 19:23 Authenticated by Jackie Driscoll MD On 03/28/2012 01:25:01 PM documented in this encounter Plan of Treatment Not on file documented as of this encounter Procedures Procedure Name Priority Date/Time Associated Diagnosis Comments BLOOD GLUCOSE, POC Routine 03/28/2012 12 :08 PM APICULTURE TEACHER BLOOD GLUCOSE, POC Routine 03/28/2012 11 :41 AM APICULTURE TEACHER BLOOD GLUCOSE, POC Routine 03/28/2012 7: 14 AM APICULTURE TEACHER DISCHARGE LABORATORY CUMULATIVE REPORT 03/28/2012 BLOOD GLUCOSE, POC Routine 03/27/2012 10 :02 PM APICULTURE TEACHER BLOOD GLUCOSE, POC Routine 03/27/2012 5: 05 PM APICULTURE TEACHER URINALYSIS Routine 03/27/2012 5:00 PM APICULTURE TEACHER BLOOD GLUCOSE, POC Routine 03/27/2012 12 :13 PM APICULTURE TEACHER BLOOD GLUCOSE, POC Routine 03/27/2012 7: 07 AM APICULTURE TEACHER URINE MICROBIOLOGY Routine 03/27/2012 12 :00 AM APICULTURE TEACHER BLOOD GLUCOSE, POC Routine 03/26/2012 8: 26 PM APICULTURE TEACHER BLOOD GLUCOSE, POC Routine 03/26/2012 5: 25 PM APICULTURE TEACHER BLOOD GLUCOSE, POC Routine 03/26/2012 2: 16 PM APICULTURE TEACHER NM DIURETIC RENAL IMAGING (LASIX RENAL SCAN) Routine 03/26/2012 12:30 PM APICULTURE TEACHER XR ABDOMEN AP 1V Routine 03/25/2012 11:5 3 PM APICULTURE TEACHER documented in this encounter Results * (ABNORMAL) Blood glucose, POC (03/28/2012 12:08 PM APICULTURE TEACHER) Glucose, POC, bld 160(H) 70 - 99 mg/dl HISTORICAL RESULTS Blood specimen (specimen) 03/28/2012 12:08 PM APICULTURE TEACHER Humble Salazar MD LAB BLOOD ORDERABLES Katheryn saldivar Result HISTORICAL RESULTS * (ABNORMAL) Blood glucose, POC (03/28/2012 11:41 AM APICULTURE TEACHER) Glucose, POC, bld 119(H) 70 - 99 mg/dl HISTORICAL RESULTS Blood specimen (specimen) 03/28/2012 11:41 AM APICULTURE TEACHER us Humble Salazar MD LAB BLOOD ORDERABLES Katheryn l Result Performing Organization Address [facility] Phone Number HISTORICAL RESULTS * (ABNORMAL) Blood glucose, POC (03/28/2012 7:14 AM APICULTURE TEACHER) Glucose, POC, bld 168(H) 70 - 99 mg/dl HISTORICAL RESULTS Blood specimen (specimen) 03/28/2012 7:14 AM APICULTURE TEACHER Humble Salazar MD LAB BLOOD ORDERABLES Katheryn l Result Performing Organization Address [facility] Phone Number HISTORICAL RESULTS * DISCHARGE LABORATORY CUMULATIVE REPORT (03/28/2012) Narrative 03/28/2012 Ordered by an unspecified provider. Historical Tulio RYDER LAB BLOOD ORDERABLES Katheryn l Result * (ABNORMAL) Blood glucose, POC (03/27/2012 10:02 PM APICULTURE TEACHER) Glucose, POC, bld 279(H) 70 - 99 mg/dl HISTORICAL RESULTS Blood specimen (specimen) 03/27/2012 10:02 PM APICULTURE TEACHER Humble Salazar MD LAB BLOOD ORDERABLES Katheryn l Result Performing Organization Address [facility] Phone Number HISTORICAL RESULTS * (ABNORMAL) Blood glucose, POC (03/27/2012 5:05 PM APICULTURE TEACHER) Glucose, POC, bld 216(H) 70 - 99 mg/dl HISTORICAL RESULTS Blood specimen (specimen) 03/27/2012 5:05 PM APICULTURE TEACHER Humble Salazar MD LAB BLOOD ORDERABLES Katheryn l Result Performing Organization Address [facility] Co de Phone Number HISTORICAL RESULTS * (ABNORMAL) Urinalysis (03/27/2012 5:00 PM APICULTURE TEACHER) Color, ur Green HISTORICAL RESULTS Comment:The value Green was changed by 329 on 03/27/2012 18:36 from: Yellow Clarity, ur Clear Clear HISTORIC AL RESULTS pH, ur 5.0 5 - 7 HISTORICAL RESULTS Specific gravity, ur 1.008 1.001 - 1.033 HISTORICAL RESULTS Protein, ur 1+(A) Negative HISTORIC AL RESULTS Glucose, ur 2+(A) Negative HISTORIC AL RESULTS Ketones, ur Negative Negative HISTORIC AL RESULTS Bilirubin, ur Negative Negative HISTOR ICAL RESULTS U Blood Large(A) Negative HISTORICAL RESULTS Urobilinogen, quant, ur Normal 0.2 - 1.0 mg/dl HISTORICAL RESULTS Nitrites, ur Negative Negative HISTORI SEVERIANO RESULTS Leukocyte esterase, ur Trace(A) Negative HISTORICAL RESULTS WBC, ur 5 - 10(A) 0 - 5 /hpf HISTORICA L RESULTS RBC, ur 5 - 10(A) 0 - 5 /hpf HISTORICA L RESULTS Epithelial cells, ur 0 - 2 /hpf HISTORICAL RESULTS Bacteria, ur Trace HISTORI SEVERIANO RESULTS Mucus Present HISTORICAL RESULTS Urine 03/27/2012 5:00 PM APICULTURE TEACHER Jackie Driscoll MD LAB BLOOD ORDERABLES Katheryn l Result Performing Organization Address [facility] Co de Phone Number HISTORICAL RESULTS * (ABNORMAL) Blood glucose, POC (03/27/2012 12:13 PM APICULTURE TEACHER) Glucose, POC, bld 187(H) 70 - 99 mg/dl HISTORICAL RESULTS Blood specimen (specimen) 03/27/2012 12:13 PM APICULTURE TEACHER us Humble Salazar MD LAB BLOOD ORDERABLES Katheryn l Result HISTORICAL RESULTS * (ABNORMAL) Blood glucose, POC (03/27/2012 7:07 AM APICULTURE TEACHER) Glucose, POC, bld 214(H) 70 - 99 mg/dl HISTORICAL RESULTS Blood specimen (specimen) 03/27/2012 7:07 AM APICULTURE TEACHER us Humble Salazar MD LAB BLOOD ORDERABLES Katheryn l Result Performing Organization Address [facility] Co de Phone Number HISTORICAL RESULTS * Urine Microbiology (03/27/2012 12:00 AM APICULTURE TEACHER) 03/27/2012 Narrative HISTORICAL RESULTS - 03/29/2012 12:34 PM APICULTURE TEACHER [facility] ?Patient Name: ?LENA VALLE ?Med. Rec#: ?? [id number] ?Pt. Acct.#: ??[id number] ?Birthdate: ?? 1970 ?Age / Sex: ?? 41Y / F ?Location: ?DISCH ([facility]) ?Admit Date: ??03/25/2012 ?Discharge Date: ? 03/28/2012 ?Doctor: ?Humble Salazar M.D. ?Patient Type: ?CH Inpatient Culture, Urine ? Collected: 03/27/2012 17:00 Specimen: Urine ?? Specimen Source: Clean Voided Specimen Status: Final ??Last Update: 03/29/2012 10:02 Organism ?? Less than 10,000 cfu/ml of ?? multiple Gram positive organisms Comment ? This culture result is consistent with contamination ?? by normal genital-perineal ketty. us Historical Provider LAB MICROBIOLOGY - GENERA L ORDERABLES Final Result Performing Organization Address [facility] Co de Phone Number HISTORICAL RESULTS * (ABNORMAL) Blood glucose, POC (03/26/2012 8:26 PM APICULTURE TEACHER) Glucose, POC, bld 253(H) 70 - 99 mg/dl HISTORICAL RESULTS Blood specimen (specimen) 03/26/2012 8:26 PM APICULTURE TEACHER us Humble Salazar MD LAB BLOOD ORDERABLES Katheryn l Result Performing Organization Address [facility] de Phone Number HISTORICAL RESULTS * (ABNORMAL) Blood glucose, POC (03/26/2012 5:25 PM APICULTURE TEACHER) Glucose, POC, bld 329(H) 70 - 99 mg/dl HISTORICAL RESULTS Blood specimen (specimen) 03/26/2012 5:25 PM APICULTURE TEACHER us Humble Salazar MD LAB BLOOD ORDERABLES Katheryn l Result Performing Organization Address [facility] de Phone Number HISTORICAL RESULTS * (ABNORMAL) Blood glucose, POC (03/26/2012 2:16 PM APICULTURE TEACHER) Glucose, POC, bld 264(H) 70 - 99 mg/dl HISTORICAL RESULTS Blood specimen (specimen) 03/26/2012 2:16 PM APICULTURE TEACHER us Humble Salazar MD LAB BLOOD ORDERABLES Katheryn l Result Performing Organization Address [facility] de Phone Number HISTORICAL RESULTS * NM Renal Flow And Function W Pharm (03/26/2012 12:30 PM APICULTURE TEACHER) Anatomical Region Laterality Modality Body N/A Nuclear Medicine 03/26/2012 12:3 0 PM APICULTURE TEACHER Narrative 03/26/2012 6:07 PM APICULTURE TEACHER DATE OF EXAM: ??Feb ??2012 12:30PM Acc#: ??[id number] ??ENM 0041 - NM Renal Flow/Func W/WO Pharm ?? DIAGNOSIS: ??ABDOMINAL PAIN CLINICAL HISTORY: ?? renal function ?? RESULT: \ HISTORY: ??Renal scan with flow and function without and with Lasix. RENAL FLOW AND FUNCTION WITH AND WITHOUT: The examination is performed following intravenous administration of 10.3 mCi of technetium 99m MAG-3. the flow scans show normal tracer arrival in the aorta and both kidneys. The time-activity renogram curves show a somewhat flattened curve for the left kidney with a somewhat delayed peak in the accumulation. The curve for the right kidney is flat and shows no peak and no excretory phase. There is, once again, 55% perfusion to the left kidney and 40% to the right kidney. Post Lasix, there is complete washout of the activity in the left kidney. There is progressive washout of the right kidney. IMPRESSION: ?\ 1. THERE IS, ONCE AGAIN, PERSISTENT HYDRONEPHROSIS OF THE RIGHT KIDNEY, HOWEVER, NO OBSTRUCTION IS SEEN, PROGRESSIVE WASHOUT IS NOTED. 2. NORMAL LEFT KIDNEY. SNOWMOBILE MECHANIC: ??LB3 TRANSCRIBE DATE/TIME: ??Mar ??2012 ??5:57P RADIOLOGIST: ??NIGEL GAMEZ M.D. ??READ ON: ??Mar ??2012 ??3:00P ORDERING DR: HUMBLE SALAZAR M.D. THIS DOCUMENT HAS BEEN ELECTRONICALLY SIGNED BY: ??NIGEL GAMEZ M.D. ??ON: ??Mar ??2012 ??6:07P Procedure Note Provider, MD Dawson - 06/21/2016 DATE OF EXAM: Mar 26 2012 12:30PM Acc#: [id number] [facility] 0041 - NM Renal Flow/Func W/WO Pharm DIAGNOSIS: ABDOMINAL PAIN CLINICAL HISTORY: renal function RESULT: \ HISTORY: Renal scan with flow and function without and with Lasix. RENAL FLOW AND FUNCTION WITH AND WITHOUT: The examination is performed following intravenous administration of 10.3 mCi of technetium 99m MAG-3. the flow scans show normal tracer arrival in the aorta and both kidneys. The time-activity renogram curves show a somewhat flattened curve for the left kidney with a somewhat delayed peak in the accumulation. The curve for the right kidney is flat and shows no peak and no excretory phase. There is, once again, 55% perfusion to the left kidney and 40% to the right kidney. Post Lasix, there is complete washout of the activity in the left kidney. There is progressive washout of the right kidney. IMPRESSION: \ 1. THERE IS, ONCE AGAIN, PERSISTENT HYDRONEPHROSIS OF THE RIGHT KIDNEY, HOWEVER, NO OBSTRUCTION IS SEEN, PROGRESSIVE WASHOUT IS NOTED. 2. NORMAL LEFT KIDNEY. SNOWMOBILE MECHANIC: LB3 TRANSCRIBE DATE/TIME: Mar 26 2012 5:57P RADIOLOGIST: NIGEL GAMEZ M.D. READ ON: Mar 26 2012 3:00P ORDERING DR: HUMBLE SALAZAR M.D. THIS DOCUMENT HAS BEEN ELECTRONICALLY SIGNED BY: NIGEL GAMEZ M.D. ON: Mar 26 2012 6:07P Historical Provider MD GOMEZ NM PROCEDURES Final R esult * XR Abdomen AP 1V (03/25/2012 11:53 PM APICULTURE TEACHER) Anatomical Region Laterality Modality Body N/A Radiographic Shelli ging 03/25/2012 11:5 3 PM APICULTURE TEACHER Narrative 03/26/2012 10:13 AM APICULTURE TEACHER DATE OF EXAM: ??Feb ??2012 11:53PM Acc#: ??[id number] ??EDX 0217 - XR KUB ?? DIAGNOSIS: ??ABDOMINAL PAIN CLINICAL HISTORY: ?? severe pain ?? RESULT: \ HISTORY: ??Pain, stent. ABDOMEN, 1 VIEW: AP supine radiograph of the abdomen compared with the previous examination shows unremarkable bowel gas pattern. ??There is a calcification adjacent to the left transverse process of L5 which is unchanged. ??Right ureteral stent in place. ?? IMPRESSION: ?\ RIGHT URETERAL STENT. ?? SNOWMOBILE MECHANIC: ??DD2 TRANSCRIBE DATE/TIME: ??b ??2012 ??9:05A RADIOLOGIST: ??NIGEL GAMEZ M.D. ??READ ON: ??Feb ??5 2012 ??8:33A ORDERING DR: HUMBLE SALAZAR M.D. THIS DOCUMENT HAS BEEN ELECTRONICALLY SIGNED BY: ??NIGEL GAMEZ M.D. ??ON: ??Feb ??2012 10:13A Procedure Note Provider, MD Dawson - 06/21/2016 DATE OF EXAM: Mar 25 2012 11:53PM Acc#: [id number] EDX 0217 - XR KUB DIAGNOSIS: ABDOMINAL PAIN CLINICAL HISTORY: severe pain RESULT: \ HISTORY: Pain, stent. ABDOMEN, 1 VIEW: AP supine radiograph of the abdomen compared with the previous examination shows unremarkable bowel gas pattern. There is a calcification adjacent to the left transverse process of L5 which is unchanged. Right ureteral stent in place. IMPRESSION: \ RIGHT URETERAL STENT. SNOWMOBILE MECHANIC: STEFFANY TRANSCRIBE DATE/TIME: Mar 26 2012 9:05A RADIOLOGIST: NIGEL GAMEZ M.D. READ ON: Mar 26 2012 8:33A ORDERING DR: HUMBLE SALAZAR M.D. THIS DOCUMENT HAS BEEN ELECTRONICALLY SIGNED BY: NIGEL GAMEZ M.D. ON: Mar 26 2012 10:13A us Historical Provider MD GOMEZ XR PROCEDURES Final R esult documented in this encounter Visit Diagnoses Diagnosis Other ureteric obstruction Type 2 (non-insulin dependent type) or unspecified type diabetes mellitus with neurological manifestations, uncontrolled Polyneuropathy in diabetes ([facility]/HCC) ([facility]) Urinary tract infection Urinary tract infection, site not specified Hydronephrosis Essential hypertension Unspecified essential hypertension Constipation Unspecified constipation Other and unspecified hyperlipidemia Encounter for long-term (current) use of insulin ([facility]) Encounter for long-term (current) use of insulin Personal history of allergy to penicillin documented in this encounter
--- OUTSIDE RECORDS SUMMARY | 2024-03-02 22:18 | XMS_ITS | Encounter Summary ---
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 Name Role Phone Unavailable Primary Care Provider Unavailabl e Encounter Details Date Type Department Care Team (Latest Contact Info) Description 05/15/2012 10:25 AM CDT - 05/18/2012 4:10 PM CDT Hospital Encounter [facility] Gera Patterson MD [address] [place] [address] [address] Other ureteric obstruction; Hydronephrosis; Tobacco use disorder; Other musculoskeletal symptoms referable to limbs; Constipation Social History Tobacco Use Types Packs/Day Years Used Date Smoking Tobacco: Never Assessed Comments Unknown Sex and Gender Information Value Date Recorded Sex Assigned at Not on file 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 Gender Identity Not on file Sexual Orientation Not on file documented as of this encounter Last Filed Vital Signs Vital Sign Reading Time Taken Comments Blood Pressure 147/89 05/18/2012 7:27 AM CDT Pulse 72 05/18/2012 7:27 AM CDT Temperature - - Respiratory Rate - - Oxygen Saturation - - Inhaled Oxygen Concentration - - Weight 83 kg (182 lb 15.7 oz) 05/15/2012 6:24 PM CDT Height 167.6 cm (5' 5.98 ) 05/15/2012 6:24 PM CD T Body Mass Index 29.55 05/15/2012 6:24 PM CDT documented in this encounter Discharge Summaries * ProviderDawson MD - 05/18/2012 12:00 AM CDT DISCHARGE SUMMARY Patient: LENA VALLE Account: [id number] Room No: 603-02 : 1970 Patient Type: IP Attending: Gera Lucero M.D. Admit Date: 05/15/2012 Dictating: eGra Lucero M.D. Disch. Date: 05/18/2012 Primary Diagnosis: Recurrent right ureteropelvic junction obstruction. Additional Diagnosis: Hypertension. Primary Procedure: On May 15, 2012, a robotic-assisted laparoscopic right dismembered pyeloplasty. Brief history and Hospital Course: A 42-year-old woman with intermittent right flank pain for years, has a right UPJ obstruction. She had it repaired as a 17-year-old. Based on retrograde, she has recurrent disease. However, renal scan did not show an obstruction. She was taken the operating room, and had a transperitoneal robotic-assisted laparoscopic pyeloplasty done. There was a tremendous amount of inflammation at the ureteropelvic junction. A dismembered pyeloplasty was performed. She did well postoperatively. She had some left leg weakness on postoperative day number 1, which was likely related to positioning. It had significantly improved by postoperative day number 2. Hemoglobin postoperative day number 1, was 1.4 and creatinine 0.82. She was discharged on postoperative day. Because she had such pain with the ureteral stent in the past, I did not place a stent during surgery. She was discharged home with her nephrostomy tube. Her flank drain was removed, as was her Thakkar catheter. Her nephrostomy tube was draining well, as was her Thakkar catheter before it was removed. Disposition: She will be discharged home. Discharge Medications: 1. Percocet for pain. 2. Her usual home medications: A. Insulin. B. Gabapentin. C. Lisinopril. D. Metoprolol. E. Simvastatin. Followup: I will follow up in the office in 2 weeks. Discharge Instructions: No heavy lifting or strenuous exercise, but walking is encouraged. Benjamin Pacheco/maritza TD: 05/31/2012 14:40 Authenticated by Gera Lucero MD On 06/06/2012 10:36:19 AM documented in this encounter Miscellaneous Notes * Op Note - ProviderDawson MD - 05/15/2012 12:00 AM CDT OPERATIVE REPORT Patient: LENA VALLE Account: [id number] Room No: 603-02 : 1970 Patient Type: IP Attending: Gera Lucero M.D. Admit Date: 05/15/2012 Surgeon: Gera Lucero M.D. Disch. Date: DATE OF OPERATION 05/15/2012 PREOPERATIVE DIAGNOSIS Right ureteropelvic junction, recurrent. POSTOPERATIVE DIAGNOSIS Right ureteropelvic junction, recurrent. NAME OF OPERATION OR PROCEDURE Robot-assisted laparoscopic right dismembered pyeloplasty. SURGEON Dr. Gera Lucero. MATERIAL HANDLING TECHNICIAN Dr. Adenike Montalvo. Hubert Tinajero R.N. ANESTHESIA General. ANTIBIOTIC PROPHYLAXIS Levaquin. DVT PROPHYLAXIS Sequential compression devices and MARK hose. ESTIMATED BLOOD LOSS Negligible. DRAINS 1. #15 Bertrand-Alexander. 2. #16 Kenyan Thakkar catheter. 3. Existing 10-Kenyan nephrostomy tube. INDICATIONS AND PROCEDURE This 42-year-old woman has had intermittent right flank pain for several years. She had a cystoscopy and retrogrades which confirmed the obstruction. Renal scan, however, did not confirm it. There was conflicting data; hydronephrosis seen on CT and retrograde, but the renal scan showed no obstruction. However, a nephrostomy tube was placed last week and that relieved her pain. After obtaining informed consent she was taken to the operating room and placed in a supine position. General anesthesia was administered. She was given Levaquin. She was shifted to a near lateral position with the right side up. All pressure points were padded after the table had been flexed. She was secured to the table. Thakkar catheter and orogastric tubes had already been placed. The nephrostomy tube was prepped. The abdomen and flank were prepped and draped in a sterile fashion. About 2 cm lateral to the umbilicus, a transverse 2-cm incision was made. This was taken down to the rectus fascia which was incised. The peritoneal cavity was then entered. A balloon port was put into position and a pneumoperitoneum was created up to 15 mmHg. Laparoscope was put into position which revealed that the intra-abdominal contents including the small bowel were normal. The appendix was seen lying very close to the lower hole of the kidney. About 8 cm lateral and a bit inferior to the initial port an 8-mm robotic port was placed. About 8 cm superior another 8 mm robotic port was placed. Lastly, in the midline about 8-10 cm below the umbilicus a 12-mm dilating port was placed. All except the first were placed under visual guidance. The first port was placed with open access. The appendix had to be reflected inferiorly and a bit medially. The right colon was dissected off the kidney as was the duodenum. This exposed the renal pelvis. The ureter was found and traced proximally. Following the ureter upwards, there was a tremendous amount of inflammation seen at the ureteropelvic junction. Initially I thought it was a very intrarenal pelvis. To a certain degree it was; however, there was a very thick rind, probably 4 or 5 mm, that initially I could not appreciate, but after significant dissection I was able to appreciate all along the renal pelvis and covering 4 cm of proximal ureter. Although most of the kidney had been dissected readily, it took about 30 minutes to dissect out the pelvis and renal pelvis. Even with the nephrostomy tube in and injecting saline, I was not able to see the renal pelvis distend because this rind around the renal pelvis was so inflamed and restricting the renal pelvis. After I exposed as much of the renal pelvis as I could, I opened the renal pelvis and a lot of saline came out. Now dissecting down to the ureteropelvic junction, there was an obvious stenosis there. I transected the ureter about 1.5 cm distal to the ureteropelvic junction, then I transected the UPJ about 5-7 mm proximal to the junction. There was definite stenosis present. The ureter was dissected distally to gain length. The kidney within Gerota's fascia was dissected laterally to the nephrostomy tube and superiorly so I could pull the kidney downward. This took tension away from the future anastomosis. Then 4-0 Vicryl was used in an interrupted fashion to perform the pyeloplasty. About 10 sutures were used to make a tension-free, water-tight anastomosis. Injecting 60 mL of saline quickly into the renal pelvis through the nephrostomy tube, there was minimal to no leak noted. The nephrostomy tube was connected to drainage. The ureter had been spatulated for about 2 cm before the anastomosis was performed. Dropped the pressure down to 5 mmHg. There was no bleeding encountered. The Gerota's fascia was laid over the anastomosis and reapproximated to some more medial tissue to re-retroperitonealize the kidney. Through the right lateral port a #15 Bertrand-Alexander drain was placed. All ports were removed. The robot was then docked. The fascia at the original port was closed with 0 Tycron sutures. 3-0 Vicryl was used to close Raheem's fascia and all port sites in the skin were closed with Monocryl. The drain was sutured to the skin. She tolerated the procedure well and was woken up and taken to the recovery room in stable condition. Gera Lucero M.D. KHAI/alvin TD: 05/15/2012 20:03 Authenticated and Edited by Gera Lucero MD On 05/17/12 8:52:57 AM documented in this encounter Plan of Treatment Not on file documented as of this encounter Procedures Procedure Name Priority Date/Time Associated Diagnosis Comments BLOOD GLUCOSE, POC Routine 05/18/2012 12 :02 PM CDT BLOOD GLUCOSE, POC Routine 05/18/2012 7: 22 AM CDT DISCHARGE LABORATORY CUMULATIVE REPORT 05/18/2012 BLOOD GLUCOSE, POC Routine 05/17/2012 8: 42 PM CDT BLOOD GLUCOSE, POC Routine 05/17/2012 5: 23 PM CDT BLOOD GLUCOSE, POC Routine 05/17/2012 12 :23 PM CDT BLOOD GLUCOSE, POC Routine 05/17/2012 7: 31 AM CDT BLOOD GLUCOSE, POC Routine 05/16/2012 8: 15 PM CDT BLOOD GLUCOSE, POC Routine 05/16/2012 5: 06 PM CDT BLOOD GLUCOSE, POC Routine 05/16/2012 12 :00 PM CDT BLOOD GLUCOSE, POC Routine 05/16/2012 7: 29 AM CDT PLASMA BASIC METABOLIC PANEL Routine 05/16/2012 4:46 AM CDT BLOOD HEMOGLOBIN Routine 05/16/2012 4:46 AM CDT BLOOD HEMATOCRIT Routine 05/16/2012 4:46 AM CDT BLOOD GLUCOSE, POC Routine 05/15/2012 10 :58 PM CDT BLOOD GLUCOSE, POC Routine 05/15/2012 9: 32 PM CDT BLOOD GLUCOSE, POC Routine 05/15/2012 5: 26 PM CDT BLOOD GLUCOSE, POC Routine 05/15/2012 3: 10 PM CDT BLOOD GLUCOSE, POC Routine 05/15/2012 10 :54 AM CDT BLOOD CELL COUNT (CBC) Routine 05/15/2012 10:50 AM CDT BLOOD ABO, RH, INDIRECT AB SCREEN Routine 05/15/2012 10:50 AM CDT SURGICAL PATHOLOGY 05/15/2012 documented in this encounter Results * (ABNORMAL) Blood glucose, POC (05/18/2012 12:02 PM CDT) Glucose, POC, bld 190(H) 70 - 99 mg/dl HISTORICAL RESULTS Blood specimen (specimen) 05/18/2012 12:02 PM CDT Gera Lucero MD LAB BLOOD ORDERABLES Final Resul t Performing Organization Address [facility] Phone Number HISTORICAL RESULTS * (ABNORMAL) Blood glucose, POC (05/18/2012 7:22 AM CDT) Glucose, POC, bld 105(H) 70 - 99 mg/dl HISTORICAL RESULTS Blood specimen (specimen) 05/18/2012 7:22 AM CDT Gera Lucero MD LAB BLOOD ORDERABLES Final Resul t Performing Organization Address [facility] Phone Number HISTORICAL RESULTS * DISCHARGE LABORATORY CUMULATIVE REPORT (05/18/2012) Narrative 05/18/2012 Ordered by an unspecified provider. [facility] Tulio RYDER LAB BLOOD ORDERABLES Katheryn l Result * (ABNORMAL) Blood glucose, POC (05/17/2012 8:42 PM CDT) Glucose, POC, bld 220(H) 70 - 99 mg/dl HISTORICAL RESULTS Blood specimen (specimen) 05/17/2012 8:42 PM CDT Gera Lucero MD LAB BLOOD ORDERABLES Final Resul t Performing Organization Address [facility] de Phone Number HISTORICAL RESULTS * (ABNORMAL) Blood glucose, POC (05/17/2012 5:23 PM CDT) Glucose, POC, bld 223(H) 70 - 99 mg/dl HISTORICAL RESULTS Blood specimen (specimen) 05/17/2012 5:23 PM CDT Gera Lucero MD LAB BLOOD ORDERABLES Final Resul t Performing Organization Address [facility] Co de Phone Number HISTORICAL RESULTS * (ABNORMAL) Blood glucose, POC (05/17/2012 12:23 PM CDT) Glucose, POC, bld 173(H) 70 - 99 mg/dl HISTORICAL RESULTS Blood specimen (specimen) 05/17/2012 12:23 PM CDT Gera uLcero MD LAB BLOOD ORDERABLES Final Resul t Performing Organization Address [facility] de Phone Number HISTORICAL RESULTS * (ABNORMAL) Blood glucose, POC (05/17/2012 7:31 AM CDT) Glucose, POC, bld 126(H) 70 - 99 mg/dl HISTORICAL RESULTS Blood specimen (specimen) 05/17/2012 7:31 AM CDT Gera Lucero MD LAB BLOOD ORDERABLES Final Resul t Performing Organization Address [facility] de Phone Number HISTORICAL RESULTS * (ABNORMAL) Blood glucose, POC (05/16/2012 8:15 PM CDT) Glucose, POC, bld 228(H) 70 - 99 mg/dl HISTORICAL RESULTS Blood specimen (specimen) 05/16/2012 8:15 PM CDT Gera Lucero MD LAB BLOOD ORDERABLES Final Resul t Performing Organization Address [facility] de Phone Number HISTORICAL RESULTS * (ABNORMAL) Blood glucose, POC (05/16/2012 5:06 PM CDT) Glucose, POC, bld 180(H) 70 - 99 mg/dl HISTORICAL RESULTS Blood specimen (specimen) 05/16/2012 5:06 PM CDT us Gera Lucero MD LAB BLOOD ORDERABLES Final Resul t Performing Organization Address [facility] de Phone Number HISTORICAL RESULTS * (ABNORMAL) Blood glucose, POC (05/16/2012 12:00 PM CDT) Glucose, POC, bld 165(H) 70 - 99 mg/dl HISTORICAL RESULTS Blood specimen (specimen) 05/16/2012 12:00 PM CDT us Gera Lucero MD LAB BLOOD ORDERABLES Final Resul t Performing Organization Address [facility] Number HISTORICAL RESULTS * (ABNORMAL) Blood glucose, POC (05/16/2012 7:29 AM CDT) Glucose, POC, bld 136(H) 70 - 99 mg/dl HISTORICAL RESULTS Blood specimen (specimen) 05/16/2012 7:29 AM CDT us Gera Lucero MD LAB BLOOD ORDERABLES Final Resul t Performing Organization Address [facility] Number HISTORICAL RESULTS * (ABNORMAL) Blood hematocrit (05/16/2012 4:46 AM CDT) Hct 33.6(L) 37.0 - 47.0 % HISTORICAL RESULTS Blood specimen (specimen) 05/16/2012 4:46 AM CDT us Gera Lucero MD LAB BLOOD ORDERABLES Final Resul t Performing Organization Address [facility] Number HISTORICAL RESULTS * (ABNORMAL) Blood hemoglobin (05/16/2012 4:46 AM CDT) Hgb 11.4(L) 12.0 - 15.0 g/dl HISTORICAL RESULTS Blood specimen (specimen) 05/16/2012 4:46 AM CDT us Gera Lucero MD LAB BLOOD ORDERABLES Final Resul t Performing Organization Address [facility] Phone Number HISTORICAL RESULTS * (ABNORMAL) Plasma basic metabolic panel (05/16/2012 4:46 AM CDT) BUN 12 8 - 24 mg/dl HISTORICAL RESULTS Glucose 148(H) 70 - 99 mg/dl HISTORICAL RESULTS Sodium 137 135 - 145 mmol/L HISTORICAL RESULTS K, pl 3.9 3.5 - 5.1 mmol/L HISTORICAL RESULTS Chloride 106 100 - 114 mmol/L HISTORICAL RESULTS CO2 23 22 - 32 mmol/L HISTORICAL RESULTS Creatinine 0.82 0.6 - 1.3 mg/dl HISTORICAL RESULTS Calcium 7.6(L) 8.4 - 10.5 mg/dl HISTORICAL RESULTS A. gap 12 8 - 16 mmol/L HISTORICAL RESULTS eGFR 77 90 - 200 ml/min/1.7 3 m2 HISTORICAL RESULTS Comment: If this individual is -Gambian, multiply result by 1.21 Repeated results of less than 60 is indicative of chronic kidney disease. MDRD formula has not been validated on individuals greater than 70 years old. Plasma 05/16/2012 4:46 AM CDT Gera Lucero MD LAB BLOOD ORDERABLES Final Resul t Performing Organization Address [facility] de Phone Number HISTORICAL RESULTS * (ABNORMAL) Blood glucose, POC (05/15/2012 10:58 PM CDT) Glucose, POC, bld 205(H) 70 - 99 mg/dl HISTORICAL RESULTS Blood specimen (specimen) 05/15/2012 10:58 PM CDT Gera Lucero MD LAB BLOOD ORDERABLES Final Resul t Performing Organization Address [facility] de Phone Number HISTORICAL RESULTS * (ABNORMAL) Blood glucose, POC (05/15/2012 9:32 PM CDT) Glucose, POC, bld 210(H) 70 - 99 mg/dl HISTORICAL RESULTS Blood specimen (specimen) 05/15/2012 9:32 PM CDT us Gera Lucero MD LAB BLOOD ORDERABLES Final Resul t Performing Organization Address [facility] de Phone Number HISTORICAL RESULTS * (ABNORMAL) Blood glucose, POC (05/15/2012 5:26 PM CDT) Glucose, POC, bld 195(H) 70 - 99 mg/dl HISTORICAL RESULTS Blood specimen (specimen) 05/15/2012 5:26 PM CDT Gera Lucero MD LAB BLOOD ORDERABLES Final Resul t Performing Organization Address [facility] de Phone Number HISTORICAL RESULTS * (ABNORMAL) Blood glucose, POC (05/15/2012 3:10 PM CDT) Glucose, POC, bld 125(H) 70 - 99 mg/dl HISTORICAL RESULTS Blood specimen (specimen) 05/15/2012 3:10 PM CDT Gera Lucero MD LAB BLOOD ORDERABLES Final Resul t Performing Organization Address [facility] de Phone Number HISTORICAL RESULTS * (ABNORMAL) Blood glucose, POC (05/15/2012 10:54 AM CDT) Glucose, POC, bld 169(H) 70 - 99 mg/dl HISTORICAL RESULTS Blood specimen (specimen) 05/15/2012 10:54 AM CDT Gera Lucero MD LAB BLOOD ORDERABLES Final Resul t Performing Organization Address [facility] de Phone Number HISTORICAL RESULTS * (ABNORMAL) Blood cell count (CBC) (05/15/2012 10:50 AM CDT) WBC 10.3(H) 5.0 - 10.0 K/cumm HISTORICAL RESULTS RDW 41.2 36.4 - 46.3 fl HISTORICAL RESULTS RBC 4.33 4.20 - 5.20 M/cumm HISTORICAL RESULTS Rdw 12.8 11.5 - 14.5 % HISTORICAL RESULTS Hgb 13.4 12.0 - 15.0 g/dl HISTORICAL RESULTS MPV 10.7 8.6 - 12.6 fl HISTORICAL RESULTS Hct 37.7 37.0 - 47.0 % HISTORICAL RESULTS MCV 87.1 82.0 - 96.0 fl HISTORICAL RESULTS MCH 30.9 27.0 - 32.0 pg HISTORICAL RESULTS MCHC 35.5(H) 29.0 - 35.0 g/dl HISTORICAL RESULTS Platelets 305 150 - 450 K/cumm HISTORICAL RESULTS Blood specimen (specimen) 05/15/2012 10:50 AM CDT Gera Lucero MD LAB BLOOD ORDERABLES Final Resul t Performing Organization Address [facility] de Phone Number HISTORICAL RESULTS * Blood ABO, Rh, indirect ab screen (05/15/2012 10:50 AM CDT) ABO, Rho(D) B HISTORIC AL RESULTS Rho(D) typing Positive HISTOR ICAL RESULTS [place], indirect Negative HISTORICAL RESULTS Blood specimen (specimen) 05/15/2012 10:50 AM CDT Gera Lucero MD LAB BLOOD ORDERABLES Final Resul t Performing Organization Address [facility] de Phone Number HISTORICAL RESULTS * Surgical pathology (05/15/2012) Narrative 05/15/2012 Ordered by an unspecified provider. Historical Provider LAB PATHOLOGY ORDERABLES Final Result documented in this encounter Visit Diagnoses Diagnosis Other ureteric obstruction Hydronephrosis Tobacco use disorder Other musculoskeletal symptoms referable to limbs Constipation Unspecified constipation documented in this encounter
--- OUTSIDE RECORDS SUMMARY | 2024-03-02 22:18 | XMS_ITS | Encounter Summary ---
Author Organization [facility] Healthcare Address [address] [place] [id number] Care Team Providers Care Fisher Trap Name Role Phone Unavailable Primary Care Provider Unavailabl e Encounter Details Date Type Department Care Team (Late st Contact Info) Description 10/07/2013 2:56 PM CDT - 10/07/2013 7:25 PM CDT Hospital Encounter [facility] Oj Mcintyre MD [address] [facility] [address] [place] [id number] Essential hypertension; Dizziness and giddiness; Headache; Other and unspecified hyperlipidemia; Type 2 or unspecified type diabetes mellitus; Hereditary and idiopathic peripheral neuropathy; Encounter for long-term (current) use of insulin (HCC); Encounter for long-term (current) use of other medications Social History Tobacco Use Types Packs/Day Years Used Date Smoking Tobacco: Never Assessed Comments Unknown Sex and Gender Information Value Date Recorded Sex Assigned at Not on file 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 Gender Identity Not on file Sexual Orientation Not on file documented as of this encounter Last Filed Vital Signs Vital Sign Reading Time Taken Comments Blood Pressure 158/87 10/07/2013 3:03 PM CDT Pulse 86 10/07/2013 3:03 PM CDT Temperature 37.1 ??C (98.8 ??F) 10/07/2013 3:03 PM CD T Respiratory Rate - - Oxygen Saturation 98% 10/07/2013 3:03 PM CDT Inhaled Oxygen Concentration - - Weight 88.9 kg (196 lb) 10/07/2013 3:03 PM CDT Height 167.6 cm (5' 6 ) 10/07/2013 3:03 PM CDT Body Mass Index 31.64 10/07/2013 3:03 PM CDT documented in this encounter Plan of Treatment Not on file documented as of this encounter Procedures Procedure Name Priority Date/Time Associated Diagnosis Comments TNI WITH LIPID PANEL Routine 10/07/2013 3:21 PM CDT CBC WITH AUTO DIFFERENTIAL Routine 10/07/2013 3:21 PM CDT APTT Routine 10/07/2013 3:21 PM CDT PROTIME-INR Routine 10/07/2013 3:21 PM CDT CHOLESTEROL, LDL, DIRECT Routine 10/07/2013 3:21 PM CDT COMPREHENSIVE METABOLIC PANEL Routine 10/07/2013 3:21 PM CDT URINALYSIS AND REFLEX TO MICROSCOPIC AND CULTURE Routine 10/07/2013 3:18 PM CDT XR CHEST PA LATERAL 2 VIEWS Routine 10/07/2013 3:[address] STROKE PROTOCOL WO CONTRAST Routine 10/07/2013 3:05 PM CDT documented in this encounter Results * (ABNORMAL) Cholesterol, LDL, direct (10/07/2013 3:21 PM CDT) LDL Cholesterol Measurd 121(H) 0 - 100 mg/dL Comment:High Risk > 159 mg/d L 10/07/2013 3:21 PM CDT 10/07/2013 3:26 PM CDT us June Darby [facility]ER [facility] LAB BLOOD ORDERABLES Final Re sult [facility] HISTORICAL RESULTS * (ABNORMAL) TNI with LIPID PANEL (10/07/2013 3:21 PM CDT) Troponin I < 0.300 0.000 - 0.300 ng/mL Comment: Reference using GREGORY Chemiluminescence ? Negative: Repeat in 4-6 hours as indicated. Triglycerides 446(H) 0 - 199 mg/dL Comment: LDL (measured) to follow due to Triglycerides >250 mg/dL 12 hr pc highly recommended for Triglyceride Cholesterol 217(H) 0 - 199 mg/dL Comment: Borderline: ??200-239 High Risk: ?? >239 HDL Cholesterol 36(L) 40 - 60 mg/dL Comment: Major Risk ?< 40 mg/dL Moderate Risk ?40-60 mg/dL Negative Risk ?? > 60 mg/dL 10/07/2013 3:21 PM CDT 10/07/2013 3:26 PM CDT us June Darby [facility] LAB BLOOD ORDERABLES Final Re sult [facility] HISTORICAL RESULTS * Protime-INR (10/07/2013 3:21 PM CDT) PT 12.9 12.2 - 14.8 SECONDS INR 0.94 0.01 - 5.99 Comment: Recommended Therapeutic range for Oral Anticoagulant Therapy No anti-coagulation therapy ? Normal Range: ?0.8-1.4 Anti-coagulation therapy ? Low intensity therapy ?2.0-3.0 ? High intensity therapy ?? 2.5-3.5 Critical Value ? Greater than or equal to 6.0 Patients should be monitored for serious bleeding. ?? 10/07/2013 3:21 PM CDT 10/07/2013 3:26 PM CDT us June Lakhaniomar [facility] LAB BLOOD ORDERABLES Final Re sult Performing Organization Address [facility] Co de Phone Number [facility] HISTORICAL RESULTS * aPTT (10/07/2013 3:21 PM CDT) APTT 28 24 - 38 SECONDS 10/07/2013 3:21 PM CDT 10/07/2013 3:26 PM CDT June Lakhaniomar [facility] LAB BLOOD ORDERABLES Final Re sult Performing Organization Address [facility] de Phone Number [facility] HISTORICAL RESULTS * (ABNORMAL) Comprehensive metabolic panel (10/07/2013 3:21 PM CDT) Pathologist [facility] Sodium 135 135 - 145 mmol/L Potassium 3.8 3.3 - 5.1 mmol/L Chloride 96 96 - 108 mmol/L Carbon Dioxide 30 22 - 32 mmol/L Anion Gap 9 7 - 16 Glucose 289(H) 70 - 110 mg/dL BUN 14 6 - 20 mg/dL Creatinine 0.7 0.5 - 1.1 mg/dL Kidney Disease Stage > 90 mL/MIN Comment: [...] ? Kidney failure or on dialysis @ Calcium 9.2 8.6 - 10.0 mg/dL 10/07/2013 3:55 PM [facility] HISTOR[facility] RES[facility] Total Protein 7.9 6.6 - 8.7 g/dL 10/07/2013 3:55 PM [facility] HISTORICAL RESULTS Albumin 3.9 3.5 - 5.2 g/dL 10/07/2013 3:55 PM [facility] HISTORICAL RESULTS Globulin 4.0(H) 2.3 - 3.5 gm/dL Albumin/Globulin Ratio 1.0(L) 1.1 - 1.8 10/07/2013 3:55 PM [facility] HISTORICAL RESULTS Total Bilirubin 0.3 0.0 - 1.2 mg/dL 10/07/2013 3:55 PM [facility] HISTORICAL RESULTS AST 16 0 - 32 U/L 10/07/2013 3:55 PM [facility] HISTORICAL RESULTS ALT 22 0 - 33 U/L 10/07/2013 3:55 PM [facility] HISTORICAL RESULTS Alkaline Phosphatase 127(H) 35 - 104 U/L 10/07/2013 3:55 PM [facility] HISTORICAL RESULTS 10/07/2013 3:21 PM CDT 10/07/2013 3:26 PM CDT us June Wilner [facility] LAB BLOOD ORDERABLES Final Re sult [facility] HISTORICAL RESULTS * (ABNORMAL) CBC with auto differential (10/07/2013 3:21 PM CDT) WBC 9.6 4.6 - 10.2 x10 3/ul RBC 4.07 3.76 - 4.80 x10 6/ul Hemoglobin 12.5 11.0 - 15.0 g/dl 10/07/2013 3:39 PM CDT [facility] HIST[facility] RES[facility] Hct 35.3 33.0 - 43.0 % MCV 86.7 80.0 - 97.0 fl MCH 30.7 27.0 - 31.2 pg MCHC 35.4 31.8 - 35.4 g/dl 10/07/2013 3:39 PM CDT [facility] HISTORICAL RESULTS RDW 12.3 11.6 - 14.8 % Plt Count 259 124 - 400 x10 3/ul MPV 10.9(H) 7.4 - 10.4 fl 10/07/2013 3:39 PM CDT [facility] HISTORICAL RESULTS Differential Method AUTOMATED DIFF --------- -- Neut % 63.2 37.0 - 85.0 % 10/07/2013 3:39 PM CDT [facility] HISTORICAL RESULTS Immature Gran % 0.2 0.0 - 3.0 % 10/07/2013 3:39 PM CDT [facility] HISTORICAL RESULTS Lymph % 29.5 5.0 - 45.0 % [place] % 5.4 3.0 - 15.0 % Eos % 1.2 0.0 - 7.0 % Baso % 0.5 0.0 - 2.0 % ABSOLUTE COUNTS ABSOLUTE COUNTS --------- -- Absolute Neuts (auto) 6.0 1.7 - 8.7 x10 3/ul Immature Gran # 0.0 0.0 - 0.3 x10 3/ul Absolute Lymphs (auto) 2.8 0.2 - 4.6 x10 3/ul Absolute Monos (auto) 0.5 0.1 - 1.5 x10 3/ul Absolute Eos (auto) 0.1 0.0 - 0.7 x10 3/ul Absolute Basos (auto) 0.1 0.0 - 0.2 x10 3/ul 10/07/2013 3:21 PM CDT 10/07/2013 3:26 PM CDT us June Darby NP LAB BLOOD ORDERABLES Final Re sult [facility] HISTORICAL RESULTS * (ABNORMAL) Urinalysis reflex to microscopic and culture (10/07/2013 3:18 PM CDT) Ur Collection Type CLEAN CATCH Ur Culture Indicated? C&S NOT INDICATED Urine Color COLORLESS YELLOW Urine Clarity HAZY CLEAR Urine Glucose (UA) 1000(H) NORMAL mg/dL Urine Bilirubin NEGATIVE NEGATIVE mg/dl Urine Ketones NEGATIVE NEGATIVE mg/dL Ur Specific Friant 1.015 1.005 - 1.025 Urine Blood NEGATIVE NEGATIVE mg/dl Urine pH 6.0 5.0 - 8.0 Urine Protein 30(H) NEGATIVE mg/dL Urine Urobilinogen NORMAL NORMAL mg/dL Urine Nitrite NEGATIVE NEGATIVE Ur Leukocyte Esterase NEGATIVE NEGATIVE Benedicto/ul Ur Microscopic Review Indicated or Ordered Urine RBC 1 0 - 2 /HPF Urine WBC <1 0 - 2 /HPF Ur Squamous Epith Cells Rare /HPF 10/07/2013 3:18 PM CDT 10/07/2013 3:29 PM T [facility] HISTORICAL RESULTS - 10/07/2013 3:49 PM CDT Collected By ?? [id number] ?? us June Lakhaniomar [facility] LAB MICROBIOLOGY - GENERAL OR DERABLES Final Result [facility] HISTORICAL RESULTS * XR Chest Pa Lateral 2 Views (10/07/2013 3:07 PM CDT) Anatomical Region Laterality Modality Body, Chest N/A Radiographic Shelli ging 10/07/2013 3:07 PM CDT Impressions 10/07/2013 3:48 PM CDT ??No evidence of acute cardiopulmonary abnormality. THIS IS AN ELECTRONICALLY VERIFIED REPORT 10/07/2013 3:45 PM: ??Duong Lorenzo M.D. Duong Lorenzo M.D. CH: 03:45 PM 03:45 PM [facility] [EOD] Narrative 10/07/2013 3:48 PM CDT EXAMINATION: ??Two-view chest. HISTORY: ??Chest pain. TECHNIQUE: ??PA and lateral chest. COMPARISON: ??03/05/2012. FINDINGS: ??Lungs are normally expanded. ??No focal consolidation. ??No pleural effusion or pneumothorax. ??Cardiac and mediastinal silhouette are normal. Procedure Note Provider, Dawson, - 07/06/2020 EXAMINATION: Two-view chest. HISTORY: Chest pain. TECHNIQUE: PA and lateral chest. COMPARISON: 03/05/2012. FINDINGS: Lungs are normally expanded. No focal consolidation. Nopleural effusion or pneumothorax. Cardiac and mediastinal silhouette arenormal. IMPRESSION: No evidence of acute cardiopulmonary abnormality. THIS IS AN ELECTRONICALLY VERIFIED REPORT 10/07/2013 3:45 PM: Duong Lorenzo M.D. Duong Lorenzo M.D. CH:ch 03:45 PM 03:45 PM [facility] [EOD] us June Darby FISHER TROT LINE IMG XR PROCEDURES Final Resul t * CT Stroke Head WO Contrast (10/07/2013 3:05 PM CDT) Anatomical Region Laterality Modality Head N/A Computed Tomogra phy 10/07/2013 3:05 PM CDT Impressions 10/07/2013 4:07 PM CDT ?? 1. ??Stable head CT compared with 07/04/2011. ??No acute intracranial hemorrhage. THIS IS AN ELECTRONICALLY VERIFIED REPORT 10/07/2013 4:04 PM: ??Freddy NavaO. Deep Parra D.O. :as 04:04 PM 04:04 PM [facility] [EOD] Narrative 10/07/2013 4:07 PM CDT EXAMINATION: ??CT head without contrast. HISTORY: ??Hypertension, ataxia, dizziness and blurred vision. TECHNIQUE: ??3 mm axial images of the brain were performed without contrast. COMPARISON: ??07/04/2011. ??MRI brain 10/24/2006. FINDINGS: ??The ventricles and subarachnoid spaces are normal in size and symmetric. ??There is no mass effect or midline shift. ??No intracranial hemorrhage is observed. ??There is no acute vascular distribution infarction. ?? Orbital contents are normal. ??There is no significant paranasal sinus or mastoid air cell disease. ??The calvarium is intact. Procedure Note Provider, MD Dawson - 07/06/2020 EXAMINATION: CT head without contrast. HISTORY: Hypertension, ataxia, dizziness and blurred vision. TECHNIQUE: 3 mm axial images of the brain were performed withoutcontrast. COMPARISON: 07/04/2011. MRI brain 10/24/2006. FINDINGS: The ventricles and subarachnoid spaces are normal in size and symmetric. There is no mass effect or midline shift. No intracranial hemorrhage is observed. There is no acute vascular distributioninfarction. Orbital contents are normal. There is no significant paranasal sinus or mastoid air cell disease. The calvarium is intact. IMPRESSION: 1. Stable head CT compared with 07/04/2011. No acute intracranialhemorrhage. THIS IS AN ELECTRONICALLY VERIFIED REPORT 10/07/2013 4:04 PM: Deep Parra D.O. Deep Parra D.O. :as 04:04 PM 04:04 PM [facility] [EOD] June Darby NP IMG CT PROCEDURES Final Resul t documented in this encounter Visit Diagnoses Diagnosis Essential hypertension Unspecified essential hypertension Dizziness and giddiness Headache Other and unspecified hyperlipidemia Type 2 or unspecified type diabetes mellitus Hereditary and idiopathic peripheral neuropathy Unspecified hereditary and idiopathic peripheral neuropathy Encounter for long-term (current) use of insulin (HCC) Encounter for long-term (current) use of insulin Encounter for long-term (current) use of other medications documented in this encounter
--- OUTSIDE RECORDS SUMMARY | 2024-03-02 22:18 | XMS_ITS | Encounter Summary ---
Author Organization [facility] Healthcare Address [address] [place] [address] Care Team Providers Care Patient Financial Representative Name Role Phone Unavailable Primary Care Provider Unavailabl e Encounter Details Date Type Department Care Team (Latest Contact Info) Description 12/05/2013 10:55 AM CDT Hospital Encounter [facility] Abiodun Choudhury, DPM [address] [place] [address] Disorder of bone and cartilage Social History Tobacco Use Types Packs/Day Years Used Date Smoking Tobacco: Never Assessed Comments Unknown Sex and Gender Information Value Date Recorded Sex Assigned at Not on file 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 1. ??There is prominent decreased T1 and increased T2 signal seen of the midfoot tarsals rather diffusely as well as the second through fifth metatarsals. ??These findings likely reflect mechanical change/reactive marrow change. ??No displaced fracture. 2. ??There is cortical thickening seen along the shaft of the proximal to distal third of the second through fifth metatarsals. ??Findings likely reflect more chronic stress-related change. ??Nondisplaced stress fracture. 3. 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 A few small ossific fragments are seen adjacent to the cuboid and along the plantar third and fourth metatarsals as was seen on the CT. ??There is prominent soft tissue edema surrounding the tarsals of the midfoot, nonspecific. 4. ??Overall, findings may reflect sequela of Charcot's joint. Findings appear to have progressed as compared to the prior CT of 04/12/2013. ??MRI is more sensitive which may exaggerate these changes, but some of the subchondral cystic change appears to have worsened or is new in the interval compared to the CT. ??If clinically warranted, follow-up CT could be obtained for direct comparison. ??This could be obtained only if clinically warranted. THIS IS AN ELECTRONICALLY VERIFIED REPORT 12/05/2013 4:41 PM: ??Carroll Hodges M.D. Carroll Hodges M.D. MJ:tho 04:41 PM 04:41 PM [facility] [EOD] Narrative 12/05/2013 4:46 PM CDT EXAMINATION: ??MRI left foot without and with IV contrast. HISTORY: ??Patient with increasing bone mass of the left third metatarsal. The history from prior CT of the left forefoot from 04/12/2013 noted history of Charcot's joint and midfoot fracture. COMPARISON: ??Prior CT 04/12/2013, TECHNIQUE: ??Multiplanar MRI images of the left foot (midfoot) were obtained without and with IV contrast. ??The field of view was limited to the midfoot tarsals through the head of first metatarsal. FINDINGS: ?? The first metatarsal demonstrates normal signal throughout. ??The first tarsometatarsal joint appears normal. ??There is mild decreased T1 signal of the medial cuneiform and fairly prominent increased T2 signal. ??This may reflect nonspecific reactive marrow change. ??There had is subchondral cystic change seen at the navicular - medial cuneiform joint compatible with osteoarthritis. ??No cystic change was suggested on the prior CT, though MRI is more sensitive. ??There is prominent marrow edema navicular. There is marrow edema seen throughout the shaft of the second metatarsal more prominent towards the base. ??Mild joint space second tarsal-metatarsal joint. ?? The subchondral cystic change of the distal navicular abuts the medial margin of the middle cuneiform. ??Similar prominent marrow edema is seen in the middle cuneiform. There is prominent decreased T1 signal and increased T2 signal of the shaft of the third metatarsal. This is more prominent proximally. There is mild cortical thickening. ??Stress-related change possible. ??No displaced fracture. ?? There is subchondral cyst formation seen along the lateral base of the third metatarsal. Mild spurring of the third tarsometatarsal joint and joint space narrowing. ??Better seen on the comparison CT are small ossifications along the plantar aspect the joint. There is similar marrow edema of the proximal to mid shaft of the fourth metatarsal. ??No displaced fracture. ??There is mild spurring of the base. ?? There is subchondral cystic change seen and cortical irregularity of the corresponding cuboid. ??This is more prominent than the comparison CT. ??At this location on the prior exam was a likely osteochondral defect. ??At this time, there is cortical irregularity and subchondral cyst formation. ?? There is similar edema from the base to the distal third of the shaft of the fifth metatarsal. ??Again, no definite fracture. ??There is subchondral cyst formation seen of the distal corresponding cuboid. ??There is very prominent similar marrow edema throughout the cuboid. ??There is a focus of decreased T1 and T2 signal seen towards the more dorsal aspect of the distal cuboid, axial image 9, sagittal image 8. ??Small ossific fragment possible. ??This measures 6 x 4 mm. The soft tissues surrounding the midfoot tarsals demonstrate is nonspecific increased T2 signal. ??No focal fluid collection. The visualized mid to distal talus and calcaneus demonstrates normal marrow signal. ??No fracture. ??Sinus tarsi demonstrates normal signal. ??The flexor and extensor tendons demonstrate normal signal. ??Intrinsic musculature demonstrates normal muscle bulk. ??There is minimal increased T2 signal suggesting nonspecific mild myositis. ??No focal fluid collection or abscess. Lisfranc ligament is intact. Procedure Note Provider, MD Dawson - 07/06/2020 EXAMINATION: MRI left foot without and with IV contrast. HISTORY: Patient with increasing bone mass of the left third metatarsal.The history from prior CT of the left forefoot from 04/12/2013 noted history of Charcot's joint and midfoot fracture. COMPARISON: Prior CT 04/12/2013, TECHNIQUE: Multiplanar MRI images of the left foot (midfoot) wereobtained without and with IV contrast. The field of view was limited to themidfoot tarsals through the head of first metatarsal. FINDINGS: The first metatarsal demonstrates normal signal throughout. The first tarsometatarsal joint appears normal. There is mild decreased T1 signalof the medial cuneiform and fairly prominent increased T2 signal. This may reflect nonspecific reactive marrow change. There had is subchondralcystic change seen at the navicular - medial cuneiform joint compatible with osteoarthritis. No cystic change was suggested on the prior CT, thoughMRI is more sensitive. There is prominent marrow edema navicular. There is marrow edema seen throughout the shaft of the second metatarsalmore prominent towards the base. Mild joint space second tarsal-metatarsaljoint. The subchondral cystic change of the distal navicular abuts the medialmargin of the middle cuneiform. Similar prominent marrow edema is seen in themiddle cuneiform. There is prominent decreased T1 signal and increased T2 signal of theshaft of the third metatarsal. This is more prominent proximally. There is mild cortical thickening. Stress-related change possible. No displacedfracture. There is subchondral cyst formation seen along the lateral base of thethird metatarsal. Mild spurring of the third tarsometatarsal joint and jointspace narrowing. Better seen on the comparison CT are small ossifications alongthe plantar aspect the joint. There is similar marrow edema of the proximal to mid shaft of the fourth metatarsal. No displaced fracture. There is mild spurring of the base. There is subchondral cystic change seen and cortical irregularity of the corresponding cuboid. This is more prominent than the comparison CT. Atthis location on the prior exam was a likely osteochondral defect. At thistime, there is cortical irregularity and subchondral cyst formation. There is similar edema from the base to the distal third of the shaft ofthe fifth metatarsal. Again, no definite fracture. There is subchondral cyst formation seen of the distal corresponding cuboid. There is veryprominent similar marrow edema throughout the cuboid. There is a focus of decreasedT1 and T2 signal seen towards the more dorsal aspect of the distal cuboid,axial image 9, sagittal image 8. Small ossific fragment possible. Thismeasures 6 x 4 mm. The soft tissues surrounding the midfoot tarsals demonstrate isnonspecific increased T2 signal. No focal fluid collection. The visualized mid to distal talus and calcaneus demonstrates normalmarrow signal. No fracture. Sinus tarsi demonstrates normal signal. The flexorand extensor tendons demonstrate normal signal. Intrinsic musculature demonstrates normal muscle bulk. There is minimal increased T2 signal suggesting nonspecific mild myositis. No focal fluid collection orabscess. Lisfranc ligament is intact. IMPRESSION: 1. There is prominent decreased T1 and increased T2 signal seen of the midfoot tarsals rather diffusely as well as the second through fifth metatarsals. These findings likely reflect mechanical change/reactivemarrow change. No displaced fracture. 2. There is cortical thickening seen along the shaft of the proximal to distal third of the second through fifth metatarsals. Findings likelyreflect more chronic stress-related change. Nondisplaced stress fracture. 3. 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 A few small ossificfragments are seen adjacent to the cuboid and along the plantar third and fourth metatarsals as was seen on the CT. There is prominent soft tissue edema surrounding the tarsals of the midfoot, nonspecific. 4. Overall, findings may reflect sequela of Charcot's joint. Findingsappear to have progressed as compared to the prior CT of 04/12/2013. MRI is more sensitive which may exaggerate these changes, but some of the subchondral cystic change appears to have worsened or is new in the interval comparedto the CT. If clinically warranted, follow-up CT could be obtained fordirect comparison. This could be obtained only if clinically warranted. THIS IS AN ELECTRONICALLY VERIFIED REPORT 12/05/2013 4:41 PM: Carroll Hodges M.D. Carroll Hodges M.D. MJ:tho 04:41 PM 04:41 PM [facility] [EOD] us Abiodun Choudhury DPM IMG MRI PROCEDURES Final Res ult documented in this encounter Visit Diagnoses Diagnosis Disorder of bone and cartilage Disorder of bone and cartilage, unspecified documented in this encounter
--- OUTSIDE RECORDS SUMMARY | 2024-03-02 22:18 | XMS_ITS | Encounter Summary ---
Author Organization [facility] Healthcare Address [address] [place] [id number] Care Team Providers Care Fagot Heater Helper Name Role Phone Unavailable Primary Care Provider Unavailabl e Encounter Details Date Type Department Care Team (Latest Contact Info) Description 02/19/2013 3:47 PM SEWER CONNECTOR - 02/19/2013 10:33 PM SEWER CONNECTOR Hospital Encounter [facility] ER Sanchez Vasquez MD [address] [facility] [place] [address] Urinary tract infection; Other abnormal glucose Social History Tobacco Use Types Packs/Day Years Used Date Smoking Tobacco: Never Assessed Comments Unknown Sex and Gender Information Value Date Recorded Sex Assigned at Not on file Legal Sex Female 10:55 AM SEWER CONNECTOR Gender Identity Not on file Sexual Orientation Not on file documented as of this encounter Last Filed Vital Signs Vital Sign Reading Time Taken Comments Blood Pressure 195/85 02/19/2013 4:04 PM SEWER CONNECTOR Pulse 89 02/19/2013 4:04 PM SEWER CONNECTOR Temperature 36.8 ??C (98.2 ??F) 02/19/2013 4:04 PM CS T Respiratory Rate - - Oxygen Saturation 99% 02/19/2013 4:04 PM SEWER CONNECTOR Inhaled Oxygen Concentration - - Weight 87.1 kg (192 lb) 02/19/2013 4:04 PM SEWER CONNECTOR Height 167.6 cm (5' 6 ) 02/19/2013 4:04 PM SEWER CONNECTOR Body Mass Index 30.99 02/19/2013 4:04 PM SEWER CONNECTOR documented in this encounter Plan of Treatment Not on file documented as of this encounter Procedures Procedure Name Priority Date/Time Associated Diagnosis Comments BETA-HYDROXYBUTYRATE Routine 02/19/2013 5:31 PM SEWER CONNECTOR CBC WITH AUTO DIFFERENTIAL Routine 02/19/2013 5:31 PM SEWER CONNECTOR COMPREHENSIVE METABOLIC PANEL Routine 02/19/2013 5:31 PM SEWER CONNECTOR MICROBIOLOGY SPECIMEN REPORT (CONVERTED) Routine 02/19/2013 4:50 PM SEWER CONNECTOR URINALYSIS AND REFLEX TO MICROSCOPIC AND CULTURE Routine 02/19/2013 4:50 PM SEWER CONNECTOR documented in this encounter Results * (ABNORMAL) Comprehensive metabolic panel (02/19/2013 5:31 PM SEWER CONNECTOR) Sodium 134(L) 135 - 145 mmol/L 02/19/2013 5:54 PM [employer] HISTORICAL RESULTS Potassium 4.0 3.3 - 5.1 mmol/L 02/19/2013 5:54 PM [employer] HISTORICAL RESULTS Chloride 98 96 - 108 mmol/L 02/19/2013 5:54 PM [employer] HISTORICAL RESULTS Carbon Dioxide 29 22 - 32 mmol/L 02/19/2013 5:54 PM [employer] HISTORICAL RESULTS Anion Gap 7 02/19/2013 5:54 PM [employer] HISTORICAL RESULTS Glucose 251(H) 70 - 110 mg/dL 02/19/2013 5:54 PM [employer] HISTORICAL RESULTS BUN 14 6 - 20 mg/dL 02/19/2013 5:54 PM [employer] HISTORICAL RESULTS Creatinine 0.7 0.5 - 1.1 mg/dL 02/19/2013 5:54 PM [employer] HISTORICAL RESULTS Kidney Disease Stage > 90 mL/MIN 02/19/2013 5:54 PM [employer] HISTORICAL RESULTS Comment: NOTE; ??The GFR is an estimated [...] Kidney failure or on dialysis @ Calcium 8.7 8.6 - 10.2 mg/dL Comment: Reporting units changed on 12-05-2012 from mmol/L to mg/dL. Compare to previous results with caution. Total Protein 7.8 6.4 - 8.4 g/dL Albumin 3.8 3.5 - 5.2 g/dL Globulin 4.0(H) 2.3 - 3.5 gm/dL Albumin/Globulin Ratio 1.0(L) 1.1 - 1.8 02/19/2013 5:54 PM SEWER CONNECTOR [facility] RESULTS Total Bilirubin 0.3 0.0 - 1.2 mg/dL AST 13 0 - 32 U/L ALT 17 0 - 31 U/L Alkaline Phosphatase 115(H) 35 - 104 U/L 02/19/2013 5:31 PM SEWER CONNECTOR 02/19/2013 5:33 PM SEWER CONNECTOR us June Caputo CENTRAL OFFICE SUPERVISOR LAB BLOOD ORDERABLES Final R esult [facility] HIST[facility]ICAL RESULTS * (ABNORMAL) CBC with auto differential (02/19/2013 5:31 PM SEWER CONNECTOR) WBC 10.2 4.6 - 10.2 x10 3/ul 02/19/2013 5:39 PM SEWER CONNECTOR [facility] - [facility] HISTORICAL RESULTS RBC 4.15 3.76 - 4.80 x10 6/ul 02/19/2013 5:39 PM SEWER CONNECTOR [facility] - [employer] HISTORICAL RESULTS Hemoglobin 12.4 11.0 - 15.0 g/dl 02/19/2013 5:39 PM SEWER CONNECTOR [facility] [employer] HISTORICAL RESULTS Hct 36.8 33.0 - 43.0 % 02/19/2013 5:39 PM SEWER CONNECTOR [facility] - [employer] HISTORICAL RESULTS MCV 88.7 80.0 - 97.0 fl 02/19/2013 5:39 PM SEWER CONNECTOR [facility] [employer] HISTORICAL RESULTS MCH 29.9 27.0 - 31.2 pg 02/19/2013 5:39 PM SEWER CONNECTOR [facility] [employer] HISTORICAL RESULTS MCHC 33.7 31.8 - 35.4 g/dl 02/19/2013 5:39 PM SEWER CONNECTOR [facility] [employer] HISTORICAL RESULTS RDW 12.5 11.6 - 14.8 % 02/19/2013 5:39 PM SEWER CONNECTOR [facility] [employer] HISTORICAL RESULTS Plt Count 257 124 - 400 x10 3/ul 02/19/2013 5:39 PM SEWER CONNECTOR [facility] [employer] HISTORICAL RESULTS MPV 10.5(H) 7.4 - 10.4 fl 02/19/2013 5:39 PM SEWER CONNECTOR [facility] [employer] HISTORICAL RESULTS Differential Method AUTOMATED DIFF --------- -- 02/19/2013 5:39 PM [employer] HISTORICAL RESULTS Neut % 61.5 37.0 - 85.0 % 02/19/2013 5:39 PM SEWER CONNECTOR [employer] HISTORICAL RESULTS Immature Gran % 0.3 0.0 - 3.0 % 02/19/2013 5:39 PM SEWER CONNECTOR [facility] [employer] HISTORICAL RESULTS Lymph % 31.9 5.0 - 45.0 % 02/19/2013 5:39 PM SEWER CONNECTOR [facility] [employer] HISTORICAL RESULTS Trinity % 5.0 3.0 - 15.0 % 02/19/2013 5:39 PM SEWER CONNECTOR [facility] [employer] HISTORICAL RESULTS Eos % 0.9 0.0 - 7.0 % Baso % 0.4 0.0 - 2.0 % ABSOLUTE COUNTS ABSOLUTE COUNTS --------- -- Absolute Neuts (auto) 6.3 1.7 - 8.7 x10 3/ul Immature Gran # 0.0 0.0 - 0.3 x10 3/ul Absolute Lymphs (auto) 3.2 0.2 - 4.6 x10 3/ul Absolute Monos (auto) 0.5 0.1 - 1.5 x10 3/ul Absolute Eos (auto) 0.1 0.0 - 0.7 x10 3/ul Absolute Basos (auto) 0.0 0.0 - 0.2 x10 3/ul 02/19/2013 5:31 PM SEWER CONNECTOR 02/19/2013 5:33 PM SEWER CONNECTOR us June Caputo CENTRAL OFFICE SUPERVISOR LAB BLOOD ORDERABLES Final R esult [facility] RESULTS * Beta-hydroxybutyrate (02/19/2013 5:31 PM SEWER CONNECTOR) B-Hydroxybutyr ate 0.05 0.02 - 0.27 mmol/L Comment: ?Ketosis: ?> 0.27 mM ??Possible Ketoacidosis: ??> 5.00 mM 02/19/2013 5:31 PM SEWER CONNECTOR 02/19/2013 5:33 PM SEWER CONNECTOR us June Caputo CENTRAL OFFICE SUPERVISOR LAB BLOOD ORDERABLES Final R esult [facility]IST[facility]ICAL RESULTS * Microbiology Specimen Report (Converted) (02/19/2013 4:50 PM SEWER CONNECTOR) 02/19/2013 4:5 0 PM SEWER CONNECTOR 02/19/2013 5:05 PM SEWER CONNECTOR Narrative [facility] RES[facility] - 02/19/2013 4:50 PM SEWER CONNECTOR Microbiology Specimen Report (Converted) SPECIMEN [id number] ?? COLLECTED: 2013-02-19 16:50:00 [place] ?? REQ#: [id number] REQUESTING DR: June Caputo ?? SOURCE: URINE ?? SP DESC: CLEAN CATC --- PROCEDURE --- ?--- RESULT --- ?? CULTURE URINE ??(Final) ??- ??Performed at [facility] ?? * Organism 1 - CITROBACTER KOSERI [CIT KOSERI] ?* COLONY COUNT: >100,000 CFU/ml ?* SEE SUSCEPTIBILITY REPORT BELOW ?? * Organism 2 - MIXED GRAM POSITIVE ORGANISMS [MIXED GRAM] ?* COLONY COUNT: 10,000 CFU/ml ? [CIT KOSERI] ? M.I.C. ?RX AMOXICILLIN/CLAVULANIC ACID ?4 ? S CEFEPIME ? <=1 ? S CEFTRIAXONE ?<=1 ? S ERTAPENEM ?<=0.5 ? S GENTAMICIN ? <=1 ? S IMIPENEM ? <=0.25 ?S LEVOFLOXACIN ? <=0.12 ?S NITROFURANTOIN ? 64 ?I PIPERACILLIN/TAZOBACTAM ?<=4 ? S TRIMETHOPRIM/SULFAMETHOXAZOLE ??<=20 ?S TOBRAMYCIN ? <=1 ? S ??S=Susceptible ?? I=Intermediate ?? S=Resistant ??SDD=Susceptible Dose Dependent ?? N/R=No Report ?FATIMAH =Beta Lactamase - [facility] ? [address] ? [place] [address] ? Oj Nunes MD Procedure Note 05/11/2018 Microbiology Specimen Report (Converted) SPECIMEN [id number] COLLECTED: 2013-02-19 16:50:00 [place] REQ#:[id number] REQUESTING DR: June Caputo SOURCE: URINE SP DESC: CLEAN CATC --- PROCEDURE --- --- RESULT --- CULTURE URINE (Final) - Performed at [facility] * Organism 1 - CITROBACTER KOSERI [CIT KOSERI] * COLONY COUNT: >100,000 CFU/ml * SEE SUSCEPTIBILITY REPORT BELOW * Organism 2 - MIXED GRAM POSITIVE ORGANISMS [MIXED GRAM] * COLONY COUNT: 10,000 CFU/ml [CIT KOSERI] M.I.C. RX AMOXICILLIN/CLAVULANIC ACID 4 S CEFEPIME <=1 S CEFTRIAXONE <=1 S ERTAPENEM <=0.5 S GENTAMICIN <=1 S IMIPENEM <=0.25 S LEVOFLOXACIN <=0.12 S NITROFURANTOIN 64 I PIPERACILLIN/TAZOBACTAM <=4 S TRIMETHOPRIM/SULFAMETHOXAZOLE <=20 S TOBRAMYCIN <=1 S S=Susceptible I=Intermediate S=Resistant SDD=Susceptible Dose Dependent N/R=No Report FATIMAH =Beta Lactamase - [address] [address] Oj Nunes MD June Caputo CENTRAL OFFICE SUPERVISOR LAB BLOOD ORDERABLES Final R esult [facility] [employer] HISTORICAL RESULTS * (ABNORMAL) Urinalysis reflex to microscopic and culture (02/19/2013 4:50 PM SEWER CONNECTOR) Ur Collection Type CLEAN CATCH 02/19/2013 5:47 PM SEWER CONNECTOR [employer] HISTORICAL RESULTS Ur Culture Indicated? C&S INDICATED 02/19/2013 5:47 PM [facility] [employer] HISTORICAL RESULTS Comment:Culture report to enrrique burgess. Urine Color LIGHT GREEN YELLOW 02/19/2013 5:47 PM SEWER CONNECTOR [employer] HISTORICAL RESULTS Urine Clarity HAZY CLEAR 02/19/2013 5:47 PM SEWER CONNECTOR [employer] HISTORICAL RESULTS Urine Glucose (UA) 1000(H) NORMAL mg/dL 02/19/2013 5:47 PM SEWER CONNECTOR [employer] HISTORICAL RESULTS Urine Bilirubin NEGATIVE NEGATIVE mg/dl 02/19/2013 5:47 PM SEWER CONNECTOR [employer] HISTORICAL RESULTS Urine Ketones NEGATIVE NEGATIVE mg/dL 02/19/2013 5:47 PM [facility] [employer] HISTORICAL RESULTS Ur Specific [place] 1.013 1.005 - 1.025 02/19/2013 5:47 PM [facility] [employer] HISTORICAL RESULTS Urine Blood NEGATIVE NEGATIVE mg/dl 02/19/2013 5:47 PM SEWER CONNECTOR [facility]IST[facility] RESULTS Urine pH 6.0 5.0 - 8.0 02/19/2013 5:47 PM SEWER CONNECTOR [facility]IST[facility] RESULTS Urine Protein 30(H) NEGATIVE mg/dL 02/19/2013 5:47 PM SEWER CONNECTOR [facility] HISTORICAL RESULTS Urine Urobilinogen NORMAL NORMAL mg/dL 02/19/2013 5:47 PM SEWER CONNECTOR [facility]IST[facility]ICAL RESULTS Urine Nitrite NEGATIVE NEGATIVE 02/19/2013 5:47 PM SEWER CONNECTOR [facility] HISTORICAL RESULTS Ur Leukocyte Esterase 250(H) NEGATIVE Benedicto/ul 02/19/2013 5:47 PM SEWER CONNECTOR [facility] HIST[facility]ICAL RESULTS Ur Microscopic Review Indicated or Ordered Urine RBC 1 0 - 2 /HPF Urine WBC 32 0 - 2 /HPF Ur Squamous Epith Cells Rare /HPF 02/19/2013 4:50 PM SEWER CONNECTOR 02/19/2013 5:05 PM SEWER CONNECTOR Narrative [facility] HISTORICAL RESULTS - 02/19/2013 5:47 PM SEWER CONNECTOR Collected By ks ?? 177 ?? us June Caputo NP LAB MICROBIOLOGY - GENERAL O RDERABLES Final Result [facility] HISTORICAL RESULTS documented in this encounter Visit Diagnoses Diagnosis Urinary tract infection Urinary tract infection, site not specified Other abnormal glucose documented in this encounter
--- OUTSIDE RECORDS SUMMARY | 2024-03-02 22:18 | XMS_ITS | Encounter Summary ---
Author Organization [facility] Healthcare Address [address] [place] [address] Care Team Providers Care Diversity Manager Name Role Phone Unavailable Primary Care Provider Unavailabl e Encounter Details Date Type Department Care Team (Late st Contact Info) Description 05/09/2012 6:58 AM CDT - 05/09/2012 1:43 PM CDT Hospital Encounter [facility] Gera Patterson MD [address] [place] [address] [address] Hydronephrosis Social History Tobacco Use Types Packs/Day Years Used Date Smoking Tobacco: Never Assessed Comments Unknown Sex and Gender Information Value Date Recorded Sex Assigned at Not on file Legal Sex Female 10:55 AM SOFTWARE ENGINEER MOBILE Gender Identity Not on file Sexual Orientation Not on file documented as of this encounter Plan of Treatment Not on file documented as of this encounter Procedures Procedure Name Priority Date/Time Associated Diagnosis Comments NEPHROSTOGRAPHY Routine 05/09/2012 12:24 PM CDT ASPIRATION OF ABSCESS HEMATOMA CYST Routine 05/09/2012 12:00 PM CDT PLASMA PROTHROMBIN TIME (PT) Routine 05/09/2012 7:25 AM CDT PLASMA PARTIAL THROMBOPLASTIN TIME (PTT) Routine 05/09/2012 7:25 AM CDT PLASMA CREATININE Routine 05/09/2012 7:2 5 AM CDT BLOOD PLATELET COUNT Routine 05/09/2012 7:25 AM CDT BLOOD GLUCOSE, POC Routine 05/09/2012 7: 25 AM CDT URINE MICROBIOLOGY Routine 05/09/2012 12 :00 AM CDT DISCHARGE LABORATORY CUMULATIVE REPORT 05/09/2012 documented in this encounter Results * NEPHROSTOGRAPHY (05/09/2012 12:24 PM CDT) Anatomical Region Laterality Modality Body N/A Radiographic Shelli ging 05/09/2012 12:2 4 PM CDT Narrative 05/09/2012 7:25 PM CDT IMAGES NOT AVAILABLE IN CLINICAL DESKTOP ? FILM(S) AVAILABLE IN RADIOLOGY BUNDLE: Acc#: ??[id number] DILCIA 0141 - UROGRAPHY ANTEGRADE ?? DATE OF EXAM: ??May 09 2012 12:24PM DIAGNOSIS: ??URETERIC OBSTRUCTION NEC CLINICAL HISTORY: ?? BLOCKAGE ?? RESULT: \ RIGHT NEPHROSTOGRAM HISTORY The patient is a 42-year-old female with right UP junction obstruction. ?? She was referred to the interventional suite for percutaneous placement of a nephrostomy catheter. ??The nephrostomy catheter was placed earlier in the CT suite, and the patient was transferred to the angio suite for a nephrostogram. Under fluoroscopic guidance, contrast was gently injected into the right collecting system through the indwelling pigtail catheter. FINDINGS There is a considerable right hydronephrosis with the upper pole and to a lesser extent the mid pole calyces being markedly distended. There is slight narrowing of the right UP junction. However, contrast-opacified urine was noted to pass down the right ureter all the way into the urinary bladder. The ureter is of normal caliber. IMPRESSION: ?\ MARKED RIGHT HYDRONEPHROSIS, LIKELY SECONDARY TO PARTIAL RIGHT UP JUNCTION OBSTRUCTION. MUSHROOM SORTER GRADER: ??DM2 TRANSCRIBE DATE/TIME: ??May 09 2012 ??5:06P RADIOLOGIST: ??BIB CONNER M.D. ??READ ON: ??May 09 2012 ??3:26P ORDERING DR: GERA RUY M.D. THIS DOCUMENT HAS BEEN ELECTRONICALLY SIGNED BY: ??BIB CONNER M.D. ??ON: ??May 09 2012 ??7:25P Procedure Note Provider, Dawson, - 06/21/2016 IMAGES NOT AVAILABLE IN CLINICAL DESKTOP FILM(S) AVAILABLE IN RADIOLOGY BUNDLE: Acc#: [id number] DILCIA 0141 - UROGRAPHY ANTEGRADE DATE OF EXAM: May 09 2012 12:24PM DIAGNOSIS: URETERIC OBSTRUCTION NEC CLINICAL HISTORY: BLOCKAGE RESULT: \ RIGHT NEPHROSTOGRAM HISTORY The patient is a 42-year-old female with right UP junction obstruction. She was referred to the interventional suite for percutaneous placement of a nephrostomy catheter. The nephrostomy catheter was placed earlier in the CT suite, and the patient was transferred to the angio suite for a nephrostogram. Under fluoroscopic guidance, contrast was gently injected into the right collecting system through the indwelling pigtail catheter. FINDINGS There is a considerable right hydronephrosis with the upper pole and to a lesser extent the mid pole calyces being markedly distended. There is slight narrowing of the right UP junction. However, contrast-opacified urine was noted to pass down the right ureter all the way into the urinary bladder. The ureter is of normal caliber. IMPRESSION: \ MARKED RIGHT HYDRONEPHROSIS, LIKELY SECONDARY TO PARTIAL RIGHT UP JUNCTION OBSTRUCTION. MUSHROOM SORTER GRADER: DM2 TRANSCRIBE DATE/TIME: May 09 2012 5:06P RADIOLOGIST: BIB CONNER M.D. READ ON: May 09 2012 3:26P ORDERING DR: GERA LUCERO M.D. THIS DOCUMENT HAS BEEN ELECTRONICALLY SIGNED BY: BIB CONNER M.D. ON: May 09 2012 7:25P us Historical Provider IMGeorge XR PROCEDURES Final R esult * Aspiration Of Abscess, Hematoma (05/09/2012 12:00 PM CDT) Anatomical Region Laterality Modality Body N/A X-Ray Angiograph y 05/09/2012 12:0 0 PM CDT Narrative 05/10/2012 3:39 PM CDT DATE OF EXAM: ??May 09 2012 12:00PM Acc#: ??[id number] ??ECT 0362 - Rad Guide Percu Drain Abcess ??- RIGHT DIAGNOSIS: ??URETERIC OBSTRUCTION NEC CLINICAL HISTORY: ?? RT PERC NEPH ?? RESULT: \ RIGHT PERCUTANEOUS NEPHROSTOMY CATHETER PLACEMENT UNDER CT GUIDANCE: HISTORY: ??The patient is a 42-year-old female who presents with right UP junction obstruction. ??She was referred to the interventional suite for CT-guided placement of pigtail nephrostomy catheter. ??The procedure was explained to the patient along with benefits, complications, and possible alternatives. ??Informed consent was obtained and documented. Moderate sedation was utilized with two separate aliquots of 1 mg of Versed and 100 mcg of fentanyl, commencing at 1150 hours and terminating at 12.15 hours. ??The blood pressure, pulse, and oxygen saturation were monitored from start to finish by the special procedure nurse. ?? [place] protocol was performed to confirm patient identity as well as the planned procedure. ?? Maximum sterile barrier technique was utilized including a mask and cap, as well as sterile gown, drapes, and gloves, as well as hand hygiene and 2% chlorhexidine for skin antisepsis. ?? The patient was placed prone in the CT scanner and sections were obtained through the area of interest. ??Using local anesthesia and aseptic technique, a micropuncture AccuStick needle was introduced into the right collecting system. ??Through this was passed an 0.18 guidewire over which was passed a 6-Liberian sheath dilator system. ??Through this was passed an 0.35 Amplatz guidewire. ??Over this was advanced an 8-Liberian nephrostomy pigtail catheter. ??This was sutured in place and connected to gravity drainage. ??Clear urine was aspirated. ??Specimens were sent for culture and sensitivity. ??The position of the pigtail in the dilated collecting system was documented on hard copy. ??No complications noted during or after the procedure. IMPRESSION: ?\ CT-GUIDED PERCUTANEOUS PLACEMENT OF AN 8-BURKINAN PIGTAIL NEPHROSTOMY CATHETER INTO A DILATED RIGHT COLLECTING SYSTEM DESCRIBED ABOVE. ?? RIGHT NEPHROSTOGRAM WILL BE OBTAINED SHORTLY IN THE ANGIO SUITE. ? MUSHROOM SORTER GRADER: ??DD2 TRANSCRIBE DATE/TIME: ??May 10 2012 ??3:18P RADIOLOGIST: ??BIB CONNER M.D. ??READ ON: ??May 10 2012 ??1:25P ORDERING DR: GERA LUCERO M.D. THIS DOCUMENT HAS BEEN ELECTRONICALLY SIGNED BY: ??BIB CONNER M.D. ??ON: ??May 10 2012 ??3:39P Procedure Note Provider, MD Dawson - 06/21/2016 DATE OF EXAM: May 09 2012 12:00PM Acc#: [id number] ECT 0362 - Rad Guide Percu Drain Abcess - RIGHT DIAGNOSIS: URETERIC OBSTRUCTION NEC CLINICAL HISTORY: RT PERC NEPH RESULT: \ RIGHT PERCUTANEOUS NEPHROSTOMY CATHETER PLACEMENT UNDER CT GUIDANCE: HISTORY: The patient is a 42-year-old female who presents with right UP junction obstruction. She was referred to the interventional suite for CT-guided placement of pigtail nephrostomy catheter. The procedure was explained to the patient along with benefits, complications, and possible alternatives. Informed consent was obtained and documented. Moderate sedation was utilized with two separate aliquots of 1 mg of Versed and 100 mcg of fentanyl, commencing at 1150 hours and terminating at 12.15 hours. The blood pressure, pulse, and oxygen saturation were monitored from start to finish by the special procedure nurse. [place] protocol was performed to confirm patient identity as well as the planned procedure. Maximum sterile barrier technique was utilized including a mask and cap, as well as sterile gown, drapes, and gloves, as well as hand hygiene and 2% chlorhexidine for skin antisepsis. The patient was placed prone in the CT scanner and sections were obtained through the area of interest. Using local anesthesia and aseptic technique, a micropuncture AccuStick needle was introduced into the right collecting system. Through this was passed an 0.18 guidewire over which was passed a 6-Liberian sheath dilator system. Through this was passed an 0.35 Amplatz guidewire. Over this was advanced an 8-Liberian nephrostomy pigtail catheter. This was sutured in place and connected to gravity drainage. Clear urine was aspirated. Specimens were sent for culture and sensitivity. The position of the pigtail in the dilated collecting system was documented on hard copy. No complications noted during or after the procedure. IMPRESSION: \ CT-GUIDED PERCUTANEOUS PLACEMENT OF AN 8-BURKINAN PIGTAIL NEPHROSTOMY CATHETER INTO A DILATED RIGHT COLLECTING SYSTEM DESCRIBED ABOVE. RIGHT NEPHROSTOGRAM WILL BE OBTAINED SHORTLY IN THE ANGIO SUITE. MUSHROOM SORTER GRADER: STEFFANY TRANSCRIBE DATE/TIME: May 10 2012 3:18P RADIOLOGIST: BIB CONNER M.D. READ ON: May 10 2012 1:25P ORDERING DR: GERA LUCERO M.D. THIS DOCUMENT HAS BEEN ELECTRONICALLY SIGNED BY: BIB CONNER M.D. ON: May 10 2012 3:39P us Historical Provider MD IMG IR PROCEDURES Final R esult * (ABNORMAL) Blood glucose, POC (05/09/2012 7:25 AM CDT) Glucose, POC, bld 276(H) 70 - 99 mg/dl HISTORICAL RESULTS Blood specimen (specimen) 05/09/2012 7:25 AM CDT Gera Lucero MD LAB BLOOD ORDERABLES Final Resul t Performing Organization Address [facility] Co de Phone Number HISTORICAL RESULTS * Blood platelet count (05/09/2012 7:25 AM CDT) Platelets 272 150 - 450 K/cumm HISTORICAL RESULTS Blood specimen (specimen) 05/09/2012 7:25 AM CDT Gera Lucero MD LAB BLOOD ORDERABLES Final Resul t Performing Organization Address [facility] Co de Phone Number HISTORICAL RESULTS * Plasma prothrombin time (PT) (05/09/2012 7:25 AM CDT) Prothrombin time (PT) 12.6 11.5 - 15.5 seconds HISTORICAL RESULTS INR 0.94 0.81 - 1.21 HISTORIC AL RESULTS Plasma 05/09/2012 7:25 AM CDT Gera Lucero MD LAB BLOOD ORDERABLES Final Resul t HISTORICAL RESULTS * Plasma partial thromboplastin time (PTT) (05/09/2012 7:25 AM CDT) APTT 26.8 21.5 - 39.0 seconds HISTORICAL RESULTS Plasma 05/09/2012 7:25 AM CDT Gera Lucero MD LAB BLOOD ORDERABLES Final Resul t HISTORICAL RESULTS * Plasma creatinine (05/09/2012 7:25 AM CDT) Creatinine 0.66 0.6 - 1.3 mg/dl HISTORICAL RESULTS eGFR >90 90 - 200 ml/min/1.7 3 m2 HISTORICAL RESULTS Comment: If this individual is -Czech, multiply result by 1.21 Repeated results of less than 60 is indicative of chronic kidney disease. MDRD formula has not been validated on individuals greater than 70 years old. Plasma 05/09/2012 7:25 AM CDT Gera Lucero MD LAB BLOOD ORDERABLES Final Resul t HISTORICAL RESULTS * DISCHARGE LABORATORY CUMULATIVE REPORT (05/09/2012) Narrative 05/09/2012 Ordered by an unspecified provider. Historical Provider LAB BLOOD ORDERABLES Katheryn l Result * Urine Microbiology (05/09/2012 12:00 AM CDT) 05/09/2012 Narrative HISTORICAL RESULTS - 05/11/2012 2:25 PM CDT [facility] ?Patient Name: ?LENA VALLE ?Med. Rec#: ?? [id number] ?Pt. Acct.#: ??[id number] ?Birthdate: ?? 1970 ?Age / Sex: ?? 42Y / F ?Location: ?DISCH (SDS) ?Admit Date: ??05/09/2012 ?Discharge Date: ? 05/09/2012 ?Doctor: ?Gera Lucero M.D. ?Patient Type: ?CH OP in bed Culture, Urine ? Collected: 05/09/2012 11:45 Specimen: Urine ?? Specimen Source: Nephrostomy, right Status: Final ??Last Update: 05/11/2012 12:48 Culture Result ?? No Growth us Historical Provider LAB MICROBIOLOGY - GENERA L ORDERABLES Final Result HISTORICAL RESULTS documented in this encounter Visit Diagnoses Diagnosis Hydronephrosis documented in this encounter
--- OUTSIDE RECORDS SUMMARY | 2024-03-02 22:18 | XMS_ITS | Encounter Summary ---
Author Organization [facility] Healthcare Address [address] [place] [address] Care Team Providers Care Retail Loan Originator Name Role Phone Unavailable Primary Care Provider Unavailabl e Encounter Details Date Type Department Care Team (Latest Contact Info) Description 05/20/2014 12:17 PM CDT Hospital Encounter [facility] Abiodun Choudhury, DPM [address] [place] [address] Other nonspecific abnormal findings on radiological and other examinations of body structure Social History Tobacco Use Types Packs/Day Years Used Date Smoking Tobacco: Never Assessed Comments Unknown Sex and Gender Information Value Date Recorded Sex Assigned at Not on file Legal Sex 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 1. ??Again seen is diffuse reactive marrow change/edema of the tarsals, second, third, fourth and fifth proximal metatarsals. ??Overall appearance is that of reactive marrow edema/reactive marrow change as a result of Charcot's joint. ?? There is diffuse moderate osteoarthritis as above. 2. ??Mild cortical thickening of the proximal second, third, fourth and fifth metatarsals likely reflects stress-related change, no fracture. 3. ??Overall, this above pattern is quite similar to the previous exam with only minimally more prominent osteoarthritis. 4. ??Mild increased T2 signal of the soft tissues surrounds the midfoot in a diffuse pattern suggesting nonspecific inflammatory change with nonspecific myositis. ??No focal fluid collection to suggest infectious etiology. THIS IS AN ELECTRONICALLY VERIFIED REPORT 05/20/2014 2:52 PM: ??Carroll Hodges M.D. Carroll Hodges M.D. MJ:tho 02:52 PM 02:52 PM [facility] [EOD] Narrative 05/20/2014 2:55 PM CDT EXAMINATION: ??MRI left foot without contrast. HISTORY: ??Patient notes mid foot pain and swelling since July 2013. ??Patient is a diabetic. ??Charcot's joint. COMPARISON: ??Prior MRI a 12/05/[address] 04/12/2013. TECHNIQUE: ??Multiplanar MRI images of left foot were obtained with attention to the midfoot over the similar area concern as compared to the immediate prior exam. ??The field of view includes the head of the first metatarsal proximally to the posterior third of the calcaneus. FINDINGS: ?? The first metatarsal demonstrates normal signal. ??No fracture or stress-related change. ??The first tarsometatarsal joint appears normal. ?? However, there is decreased T1 and increased T2 signal of the medial cuneiform indicating edema/reactive marrow change. ??This has a similar appearance to the previous exam. ??There is subchondral cystic change of the distal navicular at the navicular - medial cuneiform. ??There is subchondral sclerosis and edema of the more dorsal aspect of the navicular - medial cuneiform with intermediate signal and thickening seen of the dorsal ligaments.. ??Appearance is similar to the prior. There is increased T2 signal seen through the proximal shaft of the second metatarsal similar to the previous exam. ??There is mild cortical thickening similar to the previous exam. ??Mild joint space narrowing second tarsal-metatarsal joint. Dorsal subchondral sclerosis of the joint. There is diffuse decreased T1 and increased T2 signal of the middle cuneiform and similar cystic changes seen of the navicular - middle cuneiform as was previously seen. Again seen is mild edema of the shaft of the proximal third metatarsal similar to the prior. Mild cortical thickening is again seen. ??There is cystic change at the base of the third metatarsal mild osteophytes at the third metatarsal joint space. ??Marrow edema is again seen diffusely of the lateral cuneiform. ?? Dorsal spurring. Mild edema is seen of the proximal shaft of the fourth metatarsal. ??Mild cortical thickening. ??There is joint space narrowing and subchondral cystic change of the corresponding articular cuboid similar to the previous exam. ?? Cortical irregularity is slightly more prompt along the dorsal aspect of the cuboid over this area. ??There is diffuse marrow edema of the cuboid similar to the previous exam otherwise. There is mild edema of the proximal fifth metatarsal without fracture. Mild cortical thickening. There is joint space narrowing of the fifth tarsometatarsal joint. Mild osteophyte and cortical irregularity most suggestive of more advanced osteoarthritis quite similar to the prior exam. ?? Subcortical cyst formation of the cuboid. There is diffuse mild increased T2 signal of the surrounding soft tissues of the midfoot including the muscular structures. ??Nonspecific myositis and inflammatory change. ??No focal fluid collection to suggest infectious etiology. ??Lisfranc ligament is intact. Procedure Note Provider, MD Dawson - 07/06/2020 EXAMINATION: MRI left foot without contrast. HISTORY: Patient notes mid foot pain and swelling since July 2013.Patient is a diabetic. Charcot's joint. COMPARISON: Prior MRI a 12/05/[address] 04/12/2013. TECHNIQUE: Multiplanar MRI images of left foot were obtained withattention to the midfoot over the similar area concern as compared to the immediate prior exam. The field of view includes the head of the first metatarsal proximally to the posterior third of the calcaneus. FINDINGS: The first metatarsal demonstrates normal signal. No fracture or stress-related change. The first tarsometatarsal joint appears normal. However, there is decreased T1 and increased T2 signal of the medialcuneiform indicating edema/reactive marrow change. This has a similar appearance tothe previous exam. There is subchondral cystic change of the distal navicularat the navicular - medial cuneiform. There is subchondral sclerosis andedema of the more dorsal aspect of the navicular - medial cuneiform withintermediate signal and thickening seen of the dorsal ligaments.. Appearance issimilar to the prior. There is increased T2 signal seen through the proximal shaft of the second metatarsal similar to the previous exam. There is mild corticalthickening similar to the previous exam. Mild joint space narrowing second tarsal-metatarsal joint. Dorsal subchondral sclerosis of the joint. Thereis diffuse decreased T1 and increased T2 signal of the middle cuneiform and similar cystic changes seen of the navicular - middle cuneiform as was previously seen. Again seen is mild edema of the shaft of the proximal third metatarsalsimilar to the prior. Mild cortical thickening is again seen. There is cysticchange at the base of the third metatarsal mild osteophytes at the thirdmetatarsal joint space. Marrow edema is again seen diffusely of the lateralcuneiform. Dorsal spurring. Mild edema is seen of the proximal shaft of the fourth metatarsal. Mild cortical thickening. There is joint space narrowing and subchondralcystic change of the corresponding articular cuboid similar to the previous exam. Cortical irregularity is slightly more prompt along the dorsal aspect ofthe cuboid over this area. There is diffuse marrow edema of the cuboidsimilar to the previous exam otherwise. There is mild edema of the proximal fifth metatarsal without fracture.Mild cortical thickening. There is joint space narrowing of the fifth tarsometatarsal joint. Mild osteophyte and cortical irregularity most suggestive of more advanced osteoarthritis quite similar to the priorexam. Subcortical cyst formation of the cuboid. There is diffuse mild increased T2 signal of the surrounding soft tissuesof the midfoot including the muscular structures. Nonspecific myositis and inflammatory change. No focal fluid collection to suggest infectious etiology. Lisfranc ligament is intact. IMPRESSION: 1. Again seen is diffuse reactive marrow change/edema of the tarsals,second, third, fourth and fifth proximal metatarsals. Overall appearance is thatof reactive marrow edema/reactive marrow change as a result of Charcot'sjoint. There is diffuse moderate osteoarthritis as above. 2. Mild cortical thickening of the proximal second, third, fourth andfifth metatarsals likely reflects stress-related change, no fracture. 3. Overall, this above pattern is quite similar to the previous exam with only minimally more prominent osteoarthritis. 4. Mild increased T2 signal of the soft tissues surrounds the midfoot lidia diffuse pattern suggesting nonspecific inflammatory change withnonspecific myositis. No focal fluid collection to suggest infectious etiology. THIS IS AN ELECTRONICALLY VERIFIED REPORT 05/20/2014 2:52 PM: Carroll Hodges M.D. Carroll Hodges M.D. MJ:tho 02:52 PM 02:52 PM [facility] [EOD] Abiodun Choudhury DPM IMG MRI PROCEDURES Final Res ult documented in this encounter Visit Diagnoses Diagnosis Other nonspecific abnormal findings on radiological and other examinations of body structure documented in this encounter
--- OUTSIDE RECORDS SUMMARY | 2024-03-02 22:18 | XMS_ITS | Encounter Summary ---
Author Organization [facility] Healthcare Address [address] [place] [address] Care Team Providers Care Manager Wind Name Role Phone Unavailable Primary Care Provider Unavailabl e Encounter Details Date Type Department Care Team (Latest Contact Info) Description 04/12/2013 11:09 AM MACHINE MADE SHOE UNIT WORKER Hospital Encounter [facility] Abiodun Choudhury, DPM [address] [place] [address] Disorder of nervous system; Arthropathy associated with neurological disorder; Closed fracture of foot Social History Tobacco Use Types Packs/Day Years Used Date Smoking Tobacco: Never Assessed Comments Unknown Sex and Gender Information Value Date Recorded Sex Assigned at Not on file Legal Sex Female 10:55 AM MACHINE MADE SHOE UNIT WORKER Gender Identity Not on file Sexual Orientation Not on file documented as of this encounter Plan of Treatment Not on file documented as of this encounter Procedures Procedure Name Priority Date/Time Associated Diagnosis Comments CT LOWER EXT-LT WO IV CONTRAST Routine 04/12/2013 11:00 AM MACHINE MADE SHOE UNIT WORKER documented in this encounter Results * CT Lower Ext-LT WO IV Contrast (04/12/2013 11:00 AM MACHINE MADE SHOE UNIT WORKER) Anatomical Region Laterality Modality Body N/A Computed Tomogra phy 04/12/2013 11:0 0 AM MACHINE MADE SHOE UNIT WORKER Impressions 04/15/2013 2:30 PM MACHINE MADE SHOE UNIT WORKER ?? 1. ??No acute fracture. 2. ??There is mild to moderate osteoarthritis of the third tarsometatarsal joint. 3. ??There is mild osteoarthritis of the fourth tarsometatarsal joint. 4. ??Along the distal articular margin of the cuboid at the fourth tarsometatarsal joint is an osteochondral defect. ??Curvilinear lucency is seen subjacent to the cortical surface. This does not appear to be completely undercutting the cortical surface to suggest a completely unstable fragment, but nearly does undercut the entire surface. 5. ??Nonspecific diffuse subcutaneous edema. THIS IS AN ELECTRONICALLY VERIFIED REPORT 04/15/2013 2:26 PM: ??Carroll Hodges M.D. Carroll Hodges M.D. MJ:tho 02:26 PM 02:26 PM [facility] [EOD] Narrative 04/15/2013 2:30 PM MACHINE MADE SHOE UNIT WORKER EXAMINATION: ??CT left foot without contrast HISTORY: ??Patient notes foot pain and swelling. ??Clinical concern of midfoot fracture and Charcot's joint. COMPARISON: ??No prior films available. TECHNIQUE: ??CT images of the left foot were obtained without IV contrast. FINDINGS: ??There is normal mineralization. ??No acute fracture is suggested. ?? Small os naviculare. ?? The first tarsal-metatarsal joint demonstrates a normal appearance. The second tarsometatarsal joint demonstrates mild joint space narrowing inferiorly compatible with mild osteoarthritis. The third tarsal-metatarsal joint demonstrates joint space narrowing inferiorly with mild spurring of the distal margin of the lateral cuneiform. ?? Spurring is seen more promptly along the plantar aspect. ??Small smoothly marginated ossifications are seen about the joint along the plantar aspect and dorsally. ??These likely reflect the sequela of older post-traumatic change or degenerative change. There is mild joint space narrowing of the fourth tarsometatarsal joint with mild osteophyte production. ??Small smoothly marginated ossification is seen along the plantar aspect of the joint which may reflect the sequela of older injury. ??Vague ossification is seen along the plantar aspect of the more medial fourth metatarsal, heterotopic ossification likely. ??There is mild cortical irregularity is seen along the distal aspect of the cuboid best seen on sagittal image 33. ??Small osteochondral defect is possible in this area. ?? Relative lucency is suggested along the undersurface of the cortical margin as seen on axial image 53 of 83 and sagittal image 33. ??Small osteochondral defect likely. ??Lucency nearly undercuts the entire cortical surface with some cortical bridging still seen. There is no significant arthropathy of the fifth tarsometatarsal joint. Otherwise, the tarsals demonstrate normal mineralization with no fracture seen. ??Minimal osteoarthritis of the calcaneal cuboid inferiorly. ??Moderate plantar calcaneal spur. ??While ligamentous structures are limited in evaluation by CT, the medial and lateral flexor tendons appear intact as do the extensor tendons. ??Achilles appears intact where visualized. ??There is nonspecific soft tissue swelling and subcutaneous edema seen diffusely. Procedure Note Provider, MD Dawson - 07/06/2020 EXAMINATION: CT left foot without contrast HISTORY: Patient notes foot pain and swelling. Clinical concern ofmidfoot fracture and Charcot's joint. COMPARISON: No prior films available. TECHNIQUE: CT images of the left foot were obtained without IVcontrast. FINDINGS: There is normal mineralization. No acute fracture issuggested. Small os naviculare. The first tarsal-metatarsal joint demonstrates a normal appearance. The second tarsometatarsal joint demonstrates mild joint space narrowing inferiorly compatible with mild osteoarthritis. The third tarsal-metatarsal joint demonstrates joint space narrowing inferiorly with mild spurring of the distal margin of the lateralcuneiform. Spurring is seen more promptly along the plantar aspect. Small smoothly marginated ossifications are seen about the joint along the plantar aspectand dorsally. These likely reflect the sequela of older post-traumatic changeor degenerative change. There is mild joint space narrowing of the fourth tarsometatarsal jointwith mild osteophyte production. Small smoothly marginated ossification isseen along the plantar aspect of the joint which may reflect the sequela ofolder injury. Vague ossification is seen along the plantar aspect of the more medial fourth metatarsal, heterotopic ossification likely. There is mild cortical irregularity is seen along the distal aspect of the cuboid bestseen on sagittal image 33. Small osteochondral defect is possible in thisarea. Relative lucency is suggested along the undersurface of the corticalmargin as seen on axial image 53 of 83 and sagittal image 33. Small osteochondral defect likely. Lucency nearly undercuts the entire cortical surface withsome cortical bridging still seen. There is no significant arthropathy of the fifth tarsometatarsal joint. Otherwise, the tarsals demonstrate normal mineralization with no fracture seen. Minimal osteoarthritis of the calcaneal cuboid inferiorly.Moderate plantar calcaneal spur. While ligamentous structures are limited in evaluation by CT, the medial and lateral flexor tendons appear intact asdo the extensor tendons. Achilles appears intact where visualized. There is nonspecific soft tissue swelling and subcutaneous edema seen diffusely. IMPRESSION: 1. No acute fracture. 2. There is mild to moderate osteoarthritis of the third tarsometatarsal joint. 3. There is mild osteoarthritis of the fourth tarsometatarsal joint. 4. Along the distal articular margin of the cuboid at the fourth tarsometatarsal joint is an osteochondral defect. Curvilinear lucency isseen subjacent to the cortical surface. This does not appear to be completely undercutting the cortical surface to suggest a completely unstablefragment, but nearly does undercut the entire surface. 5. Nonspecific diffuse subcutaneous edema. THIS IS AN ELECTRONICALLY VERIFIED REPORT 04/15/2013 2:26 PM: Carroll Hodges M.D. Carroll Hodges M.D. 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
--- OUTSIDE RECORDS SUMMARY | 2024-03-02 22:18 | XMS_ITS | Encounter Summary ---
Author Organization [facility] Healthcare Address [address] [place] [address] Care Team Providers Care Eggs Inspector Name Role Phone Unavailable Primary Care Provider Unavailabl e Encounter Details Date Type Department Care Team (Late st Contact Info) Description 03/23/2014 9:05 AM TRANSFORMER STOCK CLERK Hospital Encounter [facility] Jarred Rod MD [address] [place] [address] [id number] Other specified disorders of liver; Other nonspecific abnormal findings on radiological and other examinations of body structure Social History Tobacco Use Types Packs/Day Years Used Date Smoking Tobacco: Never Assessed Comments Unknown Sex and Gender Information Value Date Recorded Sex Assigned at Not on file Legal Sex Female 10:55 AM TRANSFORMER STOCK CLERK Gender Identity Not on file Sexual Orientation Not on file documented as of this encounter Plan of Treatment Not on file documented as of this encounter Procedures Procedure Name Priority Date/Time Associated Diagnosis Comments MRI ABDOMEN W WO CONTRAST Routine 03/23/2014 9:30 AM TRANSFORMER STOCK CLERK documented in this encounter Results * MRI Abdomen W WO Contrast (03/23/2014 9:30 AM TRANSFORMER STOCK CLERK) Anatomical Region Laterality Modality Body N/A Magnetic Resonan ce 03/23/2014 9:30 AM TRANSFORMER STOCK CLERK Impressions 03/23/2014 8:18 PM TRANSFORMER STOCK CLERK 1. ??Hepatic segment V 1.1 x 1.2 cm lesion with imaging characteristics suggestive of focal nodular hyperplasia. ??Recommend follow-up in six months utilizing Eovist as a contrast agent. 2. ??Chronic right-sided pelvocaliectasis without ureteral caliectasis. ??There is diffuse renal cortical thinning. ??Findings are nonspecific however suggestive of chronic vesicoureteral reflux. ??This is stable compared to multiple prior examinations. THIS IS AN ELECTRONICALLY VERIFIED REPORT 03/23/2014 8:13 PM: ??Naseem Ferguson M.D. Naseem Ferguson M.D. JA:kristi 12:11 PM 12:24 PM [facility] [EOD] Narrative 03/23/2014 8:18 PM TRANSFORMER STOCK CLERK EXAMINATION: ??MRI ABDOMEN WITHOUT AND WITH CONTRAST - HEPATIC MASS PROTOCOL HISTORY: ??Hepatic lesion for further characterization COMPARISON: ??CT abdomen dated March 07, 2014 TECHNIQUE: ??Multiplanar MR imaging of the abdomen was performed utilizing fluid sensitive and T1-weighted sequences without and with administration of contrast. ??20 mL of MultiHance was administered uneventfully via the left antecubital fossa vein. DISCUSSION: The lung bases demonstrate no pleural effusion. ??The visualized portions of the heart are normal in size. ??There is no pericardial effusion. The liver is normal in signal and morphology. ??Focal fatty infiltration is noted into the ligamentum teres. ??Within hepatic segment V there is a mildly T2 hyperintense T1 hypointense lesion measuring 1.1 x 1.2 cm. ??No evidence of microscopic fat is noted on the opposed phase images. ??On the opposed phase images, this demonstrates brisk arterial enhancement and is difficult to visualize on the remaining postcontrast sequences. ??This corresponds to the area of concern on the recent CT scan. This is difficult to appreciate on prior CT scans. The gallbladder is present. There is no significant dilatation of the intrahepatic or extrahepatic biliary radicals. The spleen is normal in size. ??The adrenal glands are unremarkable. ??The pancreas has normal intrinsic T1 signal without abnormal enhancement or focal mass lesion. The left kidney appears unremarkable. ??Again identified is chronic severe right pelvocaliectasis without hydroureter. ??There is diffuse cortical thinning. ??This is stable over multiple prior examinations. The major hepatic venous branches and main portal vein are patent. ?? There is no lymphadenopathy. ??No focal fluid collection or ascites is identified. ?? There is no suspicious marrow signal abnormality. Procedure Note Provider, MD Dawson - 07/06/2020 EXAMINATION: MRI ABDOMEN WITHOUT AND WITH CONTRAST - HEPATIC MASSPROTOCOL HISTORY: Hepatic lesion for further characterization COMPARISON: CT abdomen dated March 07, 2014 TECHNIQUE: Multiplanar MR imaging of the abdomen was performed utilizing fluid sensitive and T1-weighted sequences without and with administrationof contrast. 20 mL of MultiHance was administered uneventfully via the left antecubital fossa vein. DISCUSSION: The lung bases demonstrate no pleural effusion. Thevisualized portions of the heart are normal in size. There is no pericardialeffusion. The liver is normal in signal and morphology. Focal fatty infiltration is noted into the ligamentum teres. Within hepatic segment V there is amildly T2 hyperintense T1 hypointense lesion measuring 1.1 x 1.2 cm. No evidenceof microscopic fat is noted on the opposed phase images. On the opposedphase images, this demonstrates brisk arterial enhancement and is difficult to visualize on the remaining postcontrast sequences. This corresponds tothe area of concern on the recent CT scan. This is difficult to appreciate on prior CT scans. The gallbladder is present. There is no significant dilatation of the intrahepatic or extrahepatic biliary radicals. The spleen is normal in size. The adrenal glands are unremarkable. The pancreas has normal intrinsic T1 signal without abnormal enhancement orfocal mass lesion. The left kidney appears unremarkable. Again identified is chronic severe right pelvocaliectasis without hydroureter. There is diffuse cortical thinning. This is stable over multiple prior examinations. The major hepatic venous branches and main portal vein are patent. There is no lymphadenopathy. No focal fluid collection or ascites is identified. There is no suspicious marrow signal abnormality. IMPRESSION: 1. Hepatic segment V 1.1 x 1.2 cm lesion with imaging characteristics suggestive of focal nodular hyperplasia. Recommend follow-up in sixmonths utilizing Eovist as a contrast agent. 2. Chronic right-sided pelvocaliectasis without ureteral caliectasis.There is diffuse renal cortical thinning. Findings are nonspecific however suggestive of chronic vesicoureteral reflux. This is stable compared to multiple prior examinations. THIS IS AN ELECTRONICALLY VERIFIED REPORT 03/23/2014 8:13 PM: Naseem Ferguson M.D. Naseem Ferguson M.D. JA:kristi 12:11 PM 12:24 PM [facility] [EOD] Jarred Rod MD IMG MRI PROCEDURES Final R esult documented in this encounter Visit Diagnoses Diagnosis Other specified disorders of liver Other nonspecific abnormal findings on radiological and other examinations of body structure documented in this encounter
--- OUTSIDE RECORDS SUMMARY | 2024-03-02 22:18 | XMS_ITS | Encounter Summary ---
Author Organization [facility] Healthcare Address [address] [place] [address] Care Team Providers Care Material Stockkeeper Yard Name Role Phone Unavailable Primary Care Provider Unavailabl e Encounter Details Date Type Department Care Team (Late st Contact Info) Description 04/25/2012 9:36 AM NURSERYMAN ASSISTANT - 04/25/2012 11:59 PM NURSERYMAN ASSISTANT Hospital Encounter [facility] Gera Patterson MD [address] [place] [address] [facility] [address] [place], [place] [id number] Hydronephrosis Social History Tobacco Use Types Packs/Day Years Used Date Smoking Tobacco: Never Assessed Comments Unknown Sex and Gender Information Value Date Recorded Sex Assigned at Not on file Legal Sex Female 10:55 AM NURSERYMAN ASSISTANT Gender Identity Not on file Sexual Orientation Not on file documented as of this encounter Plan of Treatment Not on file documented as of this encounter Procedures Procedure Name Priority Date/Time Associated Diagnosis Comments NM DIURETIC RENAL IMAGING (LASIX RENAL SCAN) Routine 04/25/2012 3:36 PM NURSERYMAN ASSISTANT documented in this encounter Results * NM Renal Flow And Function W Pharm (04/25/2012 3:36 PM NURSERYMAN ASSISTANT) Anatomical Region Laterality Modality Body N/A Nuclear Medicine 04/25/2012 3:36 PM NURSERYMAN ASSISTANT Narrative 04/26/2012 8:25 AM NURSERYMAN ASSISTANT DATE OF EXAM: ??Mar ??7 2012 ??3:36PM Acc#: ??[id number] ??ENM 0041 - NM Renal Flow/Func W/WO Pharm ?? DIAGNOSIS: ??HYDRONEPHROSIS URETERIC OBSTRUCTION NEC CLINICAL HISTORY: ?? 591 HYDRONEPHROSIS ?? RESULT: NUCLEAR MEDICINE RENAL FLOW/FUNCTION WITH AND WITHOUT CONTRAST LASIX, 04/25/2012 CLINICAL HISTORY: ?? Hydronephrosis. TECHNIQUE: ??9.5 millicuries technetium-99m MAG3 was administered intravenously for the purposes of a renal flow study. ??40 milligrams Lasix was administered after the initial portion of the scan to evaluate for obstruction. ??Prior renal function studies performed on March 26, 2012 and March 21, 2012 was reviewed for comparison. ?? FINDINGS: ??The flow images demonstrate slightly decreased flow to the right kidney compared to the left. ??Activity accumulates in the renal collecting systems fairly early in the exam. ??However, activity washes out of the left renal parenchyma quicker than on the right. ??At the end of the initial study, radiotracer is still seen in the right renal parenchyma and there is mild dilatation of the right renal collecting system. ??The differential perfusion is 56% for the left kidney and 45% for the right kidney. ??Peak accumulation in the right kidney is delayed. ?? After the administration of Lasix, complete washout of the left kidney occurs. ??Activity in the right renal collecting system and renal parenchyma decreases over time, with some activity remaining in the right kidney at the end of the exam. ??Half life of washout after the administration of Lasix is 11 minutes for the right kidney and 10 minutes for the left kidney. IMPRESSION: 1. ??PERSISTENT RIGHT HYDRONEPHROSIS WITH PROGRESSIVE WASHOUT AND NO EVIDENCE OF OBSTRUCTION. 2. ??NORMAL LEFT KIDNEY. ? JAVA PROGRAMMER: ??PW2 TRANSCRIBE DATE/TIME: ??Apr ??7 2012 ??7:22P RADIOLOGIST: ??NARENDRA JEFF M.D. ??READ ON: ??Apr ??7 2012 ??4:30P ORDERING DR: GERA REDMOND M.D. THIS DOCUMENT HAS BEEN ELECTRONICALLY SIGNED BY: ??NARENDRA JEFF M.D. ??ON: ??Apr ??8 2012 ??8:25A Procedure Note Provider, MD Dawson - 06/21/2016 DATE OF EXAM: Apr 25 2012 3:36PM Acc#: [id number] EN 0041 - NM Renal Flow/Func W/WO Pharm DIAGNOSIS: HYDRONEPHROSIS URETERIC OBSTRUCTION NEC CLINICAL HISTORY: 591 HYDRONEPHROSIS RESULT: NUCLEAR MEDICINE RENAL FLOW/FUNCTION WITH AND WITHOUT CONTRAST LASIX, 04/25/2012 CLINICAL HISTORY: Hydronephrosis. TECHNIQUE: 9.5 millicuries technetium-99m MAG3 was administered intravenously for the purposes of a renal flow study. 40 milligrams Lasix was administered after the initial portion of the scan to evaluate for obstruction. Prior renal function studies performed on March 26, 2012 and March 21, 2012 was reviewed for comparison. FINDINGS: The flow images demonstrate slightly decreased flow to the right kidney compared to the left. Activity accumulates in the renal collecting systems fairly early in the exam. However, activity washes out of the left renal parenchyma quicker than on the right. At the end of the initial study, radiotracer is still seen in the right renal parenchyma and there is mild dilatation of the right renal collecting system. The differential perfusion is 56% for the left kidney and 45% for the right kidney. Peak accumulation in the right kidney is delayed. After the administration of Lasix, complete washout of the left kidney occurs. Activity in the right renal collecting system and renal parenchyma decreases over time, with some activity remaining in the right kidney at the end of the exam. Half life of washout after the administration of Lasix is 11 minutes for the right kidney and 10 minutes for the left kidney. IMPRESSION: 1. PERSISTENT RIGHT HYDRONEPHROSIS WITH PROGRESSIVE WASHOUT AND NO EVIDENCE OF OBSTRUCTION. 2. NORMAL LEFT KIDNEY. JAVA PROGRAMMER: PW2 TRANSCRIBE DATE/TIME: Apr 25 2012 7:22P RADIOLOGIST: NARENDRA JEFF M.D. READ ON: Apr 25 2012 4:30P ORDERING DR: GERA REDMOND M.D. THIS DOCUMENT HAS BEEN ELECTRONICALLY SIGNED BY: NARENDRA JEFF M.D. ON: Apr 26 2012 8:25A us Historical Provider MD PATRICIA BOLAÑOS PROCEDURES Final R esult documented in this encounter Visit Diagnoses Diagnosis Hydronephrosis documented in this encounter
--- OUTSIDE RECORDS SUMMARY | 2024-03-02 22:18 | XMS_ITS | Encounter Summary ---
Author Organization [facility] Healthcare Address [address] [place] [address] Care Team Providers Care Intervention Analyst Name Role Phone Unavailable Primary Care Provider Unavailabl e Encounter Details Date Type Department Care Team (Late st Contact Info) Description 07/20/2014 12:00 PM CDT Hospital Encounter [facility] Inocente Chavez MD [address] [address] Hematuria Social History Tobacco Use Types Packs/Day Years Used Date Smoking Tobacco: Never Assessed Comments Unknown Sex and Gender Information Value Date Recorded Sex Assigned at Not on file Legal Sex Female 10:55 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 Gender Identity Not on file Sexual Orientation Not on file documented as of this encounter Plan of Treatment Not on file documented as of this encounter Procedures Procedure Name Priority Date/Time Associated Diagnosis Comments URINALYSIS AND REFLEX TO MICROSCOPIC AND CULTURE Routine 07/20/2014 12:00 PM CDT documented in this encounter Results * (ABNORMAL) Urinalysis reflex to microscopic and culture (07/20/2014 12:00 PM CDT) Ur Collection Type VOIDED 07/20/2014 3:04 PM [facility] [employer] HISTORICAL RESULTS Ur Culture Indicated? C&S NOT INDICATED 07/20/2014 3:04 PM CDT [facility] [employer] HISTORICAL RESULTS Urine Color STRAW YELLOW 07/20/2014 3:04 PM T [facility] [employer] HISTORICAL RESULTS Urine Clarity HAZY CLEAR 07/20/2014 3:04 PM T [facility] [employer] HISTORICAL RESULTS Urine Glucose (UA) 1000(H) NORMAL mg/dL Urine Bilirubin NEGATIVE NEGATIVE mg/dl Urine Ketones NEGATIVE NEGATIVE mg/dL Ur Specific [place] 1.011 1.005 - 1.025 Urine Blood NEGATIVE NEGATIVE mg/dl Urine pH 5.5 5.0 - 8.0 Urine Protein 30(H) NEGATIVE mg/dL Urine Urobilinogen NORMAL NORMAL mg/dL Urine Nitrite NEGATIVE NEGATIVE Ur Leukocyte Esterase NEGATIVE NEGATIVE Benedicto/ul Ur Microscopic Review Indicated or Ordered Urine RBC 1 0 - 2 /HPF Urine WBC 1 0 - 2 /HPF Urine Mucus Rare /LPF Ur Squamous Epith Cells Few /HPF 07/20/2014 12:0 0 PM CDT 07/20/2014 2:50 PM [facility] Narrative [facility] HISTORICAL RESULTS - 07/20/2014 3:04 PM T URINE COLLECTED IN DRS OFFICE ?? us Inocente Chavez MD LAB MICROBIOLOGY - GENERAL ORDERABLES Final Result [facility] HISTORICAL RESULTS documented in this encounter Visit Diagnoses Diagnosis Hematuria Hematuria, unspecified documented in this encounter
--- OUTSIDE RECORDS SUMMARY | 2024-03-02 22:18 | XMS_ITS | Encounter Summary ---
Author Organization [facility] Healthcare Address [address] [place] [address] Care Team Providers Care Mortgage Loan Specialist Name Role Phone Unavailable Primary Care Provider Unavailabl e Encounter Details Date Type Department Care Team (Latest Contact Info) Description 01/03/2015 10:21 PM DRAG CAR RACER - 01/04/2015 3:14 AM DRAG CAR RACER Hospital Encounter [facility] ER Tod Silverio MD [address] [place] [address] Abdominal pain; Type 2 diabetes mellitus without complications (CMS/HCC); Essential (primary) hypertension; Personal history of other infectious and parasitic diseases; FDC current use of insulin (CMS/HCC); Other residential (current) drug therapy Social History Tobacco Use Types Packs/Day Years Used Date Smoking Tobacco: Never Assessed Comments Unknown Sex and Gender Information Value Date Recorded Sex Assigned at Not on file Legal Sex Female 10:55 AM DRAG CAR RACER Gender Identity Not on file Sexual Orientation Not on file documented as of this encounter Last Filed Vital Signs Vital Sign Reading Time Taken Comments Blood Pressure 127/78 01/03/2015 10:23 PM DRAG CAR RACER Pulse 77 01/03/2015 10:23 PM DRAG CAR RACER Temperature 36.8 ??C (98.2 ??F) 01/03/2015 10:23 PM C Respiratory Rate - - Oxygen Saturation 97% 01/03/2015 10:23 PM DRAG CAR RACER Inhaled Oxygen Concentration - - Weight 88.9 kg (196 lb) 01/03/2015 10:23 PM DRAG CAR RACER Height 167.6 cm (5' 6 ) 01/03/2015 10:23 PM DRAG CAR RACER Body Mass Index 31.64 01/03/2015 10:23 PM DRAG CAR RACER documented in this encounter Plan of Treatment Not on file documented as of this encounter Procedures Procedure Name Priority Date/Time Associated Diagnosis Comments CT ABDOMEN PELVIS WO CONTRAST Routine 01/04/2015 12:00 AM DRAG CAR RACER UA WITH CULTURE REFLEX Routine 5 11:50 PM DRAG CAR RACER CBC WITH AUTO DIFFERENTIAL Routine 01/03/2015 11:40 PM DRAG CAR RACER LIPASE Routine 01/03/2015 11:40 PM DRAG CAR RACER AMYLASE Routine 01/03/2015 11:40 PM DRAG CAR RACER COMPREHENSIVE METABOLIC PANEL Routine 01/03/2015 11:40 PM DRAG CAR RACER documented in this encounter Results * CT Abdomen Pelvis WO Contrast (01/04/2015 12:00 AM DRAG CAR RACER) Anatomical Region Laterality Modality Body N/A Computed Tomogra phy 01/04/2015 Impressions 01/04/2015 2:49 AM DRAG CAR RACER ??1. ??Stable moderate right-sided pelvicaliectasis and non-obstructing bilateral nephroliths. ??No obstructing ureteral or bladder stone. ??Stable atheromatous vascular calcifications and calcified phlebolith. 2. ??Probable constipation. ??No bowel obstruction or free air. 3. ??Colonic diverticula with no acute diverticulitis. THIS IS AN ELECTRONICALLY VERIFIED REPORT 01/04/2015 2:45 AM: ??Joel Beltran M.D. Joel Beltran M.D. RN:rn 02:45 AM 02:45 AM NOR [EOD] Narrative 01/04/2015 2:[address] ABDOMEN AND PELVIS WITHOUT CONTRAST HISTORY: ??Right flank pain for 1 month. ??Pain radiates into the groin. FINDINGS: ??Noncontrast CT of the abdomen and pelvis was performed. ??There is a prior contrast CT from 03/07/2014. Lung bases are grossly clear. ??Noncontrast liver and spleen are unremarkable with stable post-inflammatory granulomatous calcifications. ??Gallbladder is unremarkable. ??Pancreas and adrenal glands are normal. ??Again noted is right pelvicaliectasis and non-obstructing bilateral nephroliths. ??No obstructing urinary tract stone is identified. ??There are stable calcified pelvic phleboliths. ??There is also stable linear calcification adjacent to the proximal right ureter, similar to the prior studies and likely in a vascular branch vessel. The uterus and adnexal structures are unremarkable. ??There is moderate colonic stool with no bowel obstruction or free air. ??There are colonic diverticula with no acute diverticulitis. ??The appendix is normal. ?? There is no abdominal or pelvic adenopathy or free fluid. ??There is no abdominal aortic aneurysm. ??Osseous structures are intact. Procedure Note Provider, MD Dawson - 07/06/2020 CT ABDOMEN AND PELVIS WITHOUT CONTRAST HISTORY: Right flank pain for 1 month. Pain radiates into the groin. FINDINGS: Noncontrast CT of the abdomen and pelvis was performed. Thereis a prior contrast CT from 03/07/2014. Lung bases are grossly clear. Noncontrast liver and spleen areunremarkable with stable post-inflammatory granulomatous calcifications. Gallbladderis unremarkable. Pancreas and adrenal glands are normal. Again noted isright pelvicaliectasis and non-obstructing bilateral nephroliths. Noobstructing urinary tract stone is identified. There are stable calcified pelvic phleboliths. There is also stable linear calcification adjacent to the proximal right ureter, similar to the prior studies and likely in avascular branch vessel. The uterus and adnexal structures are unremarkable. Thereis moderate colonic stool with no bowel obstruction or free air. There are colonic diverticula with no acute diverticulitis. The appendix is normal. There is no abdominal or pelvic adenopathy or free fluid. There is no abdominal aortic aneurysm. Osseous structures are intact. IMPRESSION: 1. Stable moderate right-sided pelvicaliectasis and non-obstructing bilateral nephroliths. No obstructing ureteral or bladder stone. Stable atheromatous vascular calcifications and calcifiedphlebolith. 2. Probable constipation. No bowel obstruction or free air. 3. Colonic diverticula with no acute diverticulitis. THIS IS AN ELECTRONICALLY VERIFIED REPORT 01/04/2015 2:45 AM: Joel Beltran M.D. Joel Beltran M.D. RN:rn 02:45 AM 02:45 AM NOR [EOD] us Tod Silverio MD IM CT PROCEDURES Final Result * (ABNORMAL) UA with Culture Reflex (01/03/2015 11:50 PM DRAG CAR RACER) Ur Collection Type CLEAN CATCH 01/04/2015 12:22 AM [employer] HISTORICAL RESULTS Ur Culture Indicated? C&S NOT INDICATED 01/04/2015 12:32 AM [employer] HISTORICAL RESULTS Urine Color COLORLESS YELLOW 01/04/2015 12:32 AM [employer] HISTORICAL RESULTS Urine Clarity CLEAR CLEAR 01/04/2015 12:32 AM [employer] HISTORICAL RESULTS Urine Glucose (UA) 1000(H) NORMAL mg/dL 01/04/2015 12:32 AM [employer] HISTORICAL RESULTS Urine Bilirubin NEGATIVE NEGATIVE mg/dl 01/04/2015 12:32 AM [employer] HISTORICAL RESULTS Urine Ketones NEGATIVE NEGATIVE mg/dL 01/04/2015 12:32 AM [employer] HISTORICAL RESULTS Ur Specific [place] 1.013 1.005 - 1.025 01/04/2015 12:32 AM [employer] HISTORICAL RESULTS Urine Blood NEGATIVE NEGATIVE mg/dl 01/04/2015 12:32 AM [employer] HISTORICAL RESULTS Urine pH 5.0 5.0 - 8.0 01/04/2015 12:32 AM [employer] HISTORICAL RESULTS Urine Protein NEGATIVE NEGATIVE mg/dL 01/04/2015 12:32 AM [employer] HISTORICAL RESULTS Urine Urobilinogen NORMAL NORMAL mg/dL 01/04/2015 12:32 AM [employer] HISTORICAL RESULTS Urine Nitrite NEGATIVE NEGATIVE 01/04/2015 12:32 AM [employer] HISTORICAL RESULTS Ur Leukocyte Esterase NEGATIVE NEGATIVE Benedicto/ul Ur Microscopic Review Not Indicated 01/03/2015 11:5 0 PM DRAG CAR RACER 01/04/2015 12:14 AM DRAG CAR RACER Historical Provider LAB URINE ORDERABLES Katheryn l Result Performing Organization Address [facility] Co de Phone Number [facility] HISTORICAL RESULTS * Lipase (01/03/2015 11:40 PM DRAG CAR RACER) Lipase 25 13 - 60 U/L 01/03/2015 11:4 0 PM DRAG CAR RACER 01/03/2015 11:43 PM DRAG CAR RACER Historical Provider LAB BLOOD ORDERABLES Katheryn l Result Performing Organization Address [facility] Co de Phone Number [facility] HISTORICAL RESULTS * (ABNORMAL) Comprehensive metabolic panel (01/03/2015 11:40 PM DRAG CAR RACER) Sodium 133(L) 135 - 145 mmol/L Potassium 3.9 3.3 - 5.1 mmol/L Chloride 93(L) 96 - 108 mmol/L Carbon Dioxide 27 22 - 32 mmol/L Anion Gap 13 7 - 16 Glucose 432(H) 70 - 100 mg/dL BUN 19 6 - 20 mg/dL Creatinine 0.7 0.5 [...] @ Calcium 9.2 8.6 - 10.0 mg/dL 01/04/2015 12:05 AM [employer] HISTORICAL RESULTS Total Protein 7.8 6.4 - 8.3 g/dL 01/04/2015 12:05 AM [employer] HISTORICAL RESULTS Albumin 3.8 3.5 - 5.2 g/dL 01/04/2015 12:05 AM [employer] HISTORICAL RESULTS Globulin 4.0(H) 2.3 - 3.5 gm/dL 01/04/2015 12:05 AM [employer] HISTORICAL RESULTS Albumin/Globulin Ratio 1.0(L) 1.1 - 1.8 01/04/2015 12:05 AM [employer] HISTORICAL RESULTS Total Bilirubin 0.2 0.0 - 1.2 mg/dL 01/04/2015 12:05 AM [employer] HISTORICAL RESULTS AST 11 0 - 32 U/L 01/04/2015 12:05 AM [employer] HISTORICAL RESULTS ALT 13 0 - 33 U/L 01/04/2015 12:05 AM [employer] HISTORICAL RESULTS Alkaline Phosphatase 137(H) 35 - 104 U/L 01/04/2015 12:05 AM [employer] HISTORICAL RESULTS 01/03/2015 11:4 0 PM DRAG CAR RACER 01/03/2015 11:43 PM DRAG CAR RACER us Historical Provider LAB BLOOD ORDERABLES Katheryn yariel Result [facility] HISTORICAL RESULTS * (ABNORMAL) CBC with auto differential (01/03/2015 11:40 PM DRAG CAR RACER) WBC 9.6 4.6 - 10.2 x10 3/ul 01/03/2015 11:50 PM DRAG CAR RACER [facility] HISTORICAL RESULTS RBC 3.86 3.76 - 4.80 x10 6/ul Hemoglobin 11.8 11.0 - 15.0 g/dl Hct 33.5 33.0 - 43.0 % MCV 86.8 80.0 - 97.0 fl 01/03/2015 11:50 PM DRAG CAR RACER [facility] HISTORICAL RESULTS MCH 30.6 27.0 - 31.2 pg MCHC 35.2 31.8 - 35.4 g/dl RDW 12.4 11.6 - 14.8 % Plt Count 250 124 - 400 x10 3/ul MPV 11.5(H) 7.4 - 10.4 fl Differential Method AUTOMATED DIFF --------- -- Neut % 57.8 37.0 - 85.0 % 01/03/2015 11:50 PM [facility] HISTORICAL RESULTS Immature Gran % 0.2 0.0 - 3.0 % Lymph % 36.3 5.0 - 45.0 % Floyd % 4.6 3.0 - 15.0 % Eos % 0.7 0.0 - 7.0 % Baso % 0.4 0.0 - 2.0 % ABSOLUTE COUNTS ABSOLUTE COUNTS --------- -- Absolute Neuts (auto) 5.5 1.7 - 8.7 x10 3/ul Immature Gran # 0.0 0.0 - 0.3 x10 3/ul Absolute Lymphs (auto) 3.5 0.2 - 4.6 x10 3/ul Absolute Monos (auto) 0.4 0.1 - 1.5 x10 3/ul Absolute Eos (auto) 0.1 0.0 - 0.7 x10 3/ul Absolute Basos (auto) 0.0 0.0 - 0.2 x10 3/ul 01/03/2015 11:4 0 PM DRAG CAR RACER 01/03/2015 11:43 PM DRAG CAR RACER us Historical Provider LAB BLOOD ORDERABLES Katheryn l Result [facility] HISTORICAL RESULTS * Amylase (01/03/2015 11:40 PM DRAG CAR RACER) Amylase 42 28 - 100 U/L 01/03/2015 11:4 0 PM DRAG CAR RACER 01/03/2015 11:43 PM DRAG CAR RACER us Historical Provider LAB BLOOD ORDERABLES Katheryn saldivar Result [facility] HISTORICAL RESULTS documented in this encounter Visit Diagnoses Diagnosis Abdominal pain Abdominal pain, unspecified site Type 2 diabetes mellitus without complications (CMS/HCC) (HCC) Essential (primary) hypertension Unspecified essential hypertension Personal history of other infectious and parasitic diseases FDC current use of insulin (CMS/HCC) (HCC) 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
--- OUTSIDE RECORDS SUMMARY | 2024-03-02 22:18 | XMS_ITS | Encounter Summary ---
Author Organization [facility] Facility Care Team Providers Care Sleep Lab Technologist Name Role Phone Juan Luevano MD Primary Care Provider [phone] Juan Luevano MD Primary Care Provider [phone] Jarred Rod MD Primary Care Provider [phone] Juan Luevano MD Primary Care Provider [phone] Jarred Rod MD Primary Care Provider [phone] Encounter Details Date Type Department Care Team (Latest Contact Info) Description 02/11/2015 Orders Only [facility] ProviderDawson MD [address] [place] [id number] Social History Tobacco Use Types Packs/Day Years Used Date Smoking Tobacco: Never Assessed Comments Unknown Sex and Gender Information Value Date Recorded Sex Assigned at Not on file 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 us Historical Provider Final Res ult documented in this encounter Visit Diagnoses Not on filedocumented in this encounter Additional Health Concerns Infection Onset Date Last Indicated Resolved Time COVID19 Comment:12/15/2019 12/14/2019 12/13/2019 documented as of this encounter Care Teams Sleep Lab Technologist Relationship Specialty Start Date End Date Juan Luevano MD [address] [place] [id number] PCP - General 06/12/16 08/17/16 Juan Luevano MD [address] [place] [address] PCP - General 08/18/16 08/18/16 Jarred Rod MD [address] [place] [id number] PCP - General 08/19/16 09/14/16 Juan Luevano MD [address] [place] [id number] PCP - General 09/15/16 09/15/16 Jarred Rod MD [address] [place] [address] [id number] PCP - General 09/16/16 documented as of this encounter
--- OUTSIDE RECORDS SUMMARY | 2024-03-02 22:18 | XMS_ITS | Encounter Summary ---
Author Organization [facility] Address [address] [place] [address] Care Team Providers Care Travel Sales Consultant Name Role Phone Unavailable Primary Care Provider Unavailabl e Encounter Details Date Type Department Care Team (Latest Contact Info) Description 03/06/2014 10:54 PM [employer]ULT SCHOOL TEACHER - 03/07/2014 4:30 AM ADULT SCHOOL TEACHER Hospital Encounter [facility] Chris Rodriguez, DO [address] [place] [address] Abdominal pain, epigastric; Type 2 or unspecified type diabetes mellitus; Other specified disorders of liver; Essential hypertension; Other and unspecified hyperlipidemia; Encounter for long-term (current) use of insulin (HCC) Social History Tobacco Use Types Packs/Day Years Used Date Smoking Tobacco: Never Assessed Comments Unknown Sex and Gender Information Value Date Recorded Sex Assigned at Not on file Legal Sex Female 10:55 AM [employer]ULT SCHOOL TE[employer] Gender Identity Not on file Sexual Orientation Not on file documented as of this encounter Last Filed Vital Signs Vital Sign Reading Time Taken Comments Blood Pressure 116/77 03/06/2014 10:58 PM [employer]ULT SCHOOL TE[employer] Pulse 85 03/06/2014 10:58 PM ADULT SCHOOL TEACHER Temperature 36.8 ??C (98.3 ??F) 03/06/2014 10:[address] Respiratory Rate - - Oxygen Saturation 98% 03/06/2014 10:58 PM [employer]ULT SCHOOL TE[employer] Inhaled Oxygen Concentration - - Weight 84.4 kg (186 lb) 03/06/2014 10:58 PM ADULT SCHOOL TEACHER Height 167.6 cm (5' 6 ) 03/06/2014 10:58 PM ADULT SCHOOL TEACHER Body Mass Index 30.02 03/06/2014 10:58 PM ADULT SCHOOL TEACHER documented in this encounter Plan of Treatment Not on file documented as of this encounter Procedures Procedure Name Priority Date/Time Associated Diagnosis Comments TNI WITH LIPID PANEL Routine 03/07/2014 12:53 AM ADULT SCHOOL TEACHER CBC WITH AUTO DIFFERENTIAL Routine 03/07/2014 12:53 AM ADULT SCHOOL TEACHER CHOLESTEROL, LDL, DIRECT Routine 03/07/2014 12:53 AM ADULT SCHOOL TEACHER LIPASE Routine 03/07/2014 12:53 AM ADULT SCHOOL TEACHER AMYLASE Routine 03/07/2014 12:53 AM ADULT SCHOOL TE[employer]ER COMPREHENSIVE METABOLIC PANEL Routine 03/07/2014 12:53 AM ADULT SCHOOL TEACHER UA WITH CULTURE REFLEX Routine 5 12:10 [address]OL [address] CT ABDOMEN PELVIS W CONTRAST Routine 03/07/2014 12:00 AM ADULT SCHOOL TEACHER XR CHEST PA LATERAL 2 VIEWS Routine 03/07/2014 12:00 AM ADULT SCHOOL TEACHER documented in this encounter Results * Cholesterol, LDL, direct (03/07/2014 12:53 AM ADULT SCHOOL TEACHER) Pathologist [facility] LDL Cholesterol Measurd 96 0 - 100 mg/dL 03/07/2014 2:12 AM ADULT SCHOOL TEACHER [facility] Comment:High Risk > 159 mg/d L 03/07/2014 12:5 3 AM ADULT SCHOOL TEACHER 03/07/2014 1:06 AM ADULT SCHOOL TEACHER Narrative [facility] - 03/07/2014 2:12 AM ADULT SCHOOL TEACHER us Vira Dickey PA LAB BLOOD ORDERABLES Final Re sult [facility] HISTORICAL RESULTS * (ABNORMAL) TNI with LIPID PANEL (03/07/2014 12:53 AM ADULT SCHOOL TEACHER) Pathologist [facility] Troponin I < 0.300 0.000 - 0.300 ng/mL Comment: Reference using GREGORY Chemiluminescence ? Negative: Repeat in 4-6 hours as indicated. Triglycerides 663(H) 0 - 199 mg/dL 03/07/2014 1:48 AM [facility] [employer] HISTORICAL RESULTS Comment: LDL (measured) to follow due to Triglycerides >250 mg/dL 12 hr pc highly recommended for Triglyceride Cholesterol 218(H) 0 - 199 mg/dL 03/07/2014 1:48 AM [facility] [employer] HISTORICAL RESULTS Comment: Borderline: ??200-239 High Risk: ?? >239 HDL Cholesterol 38(L) 40 - 60 mg/dL 03/07/2014 1:48 AM [facility] [employer] HISTORICAL RESULTS Comment: Major Risk ?< 40 mg/dL Moderate Risk ?40-60 mg/dL Negative Risk ?? > 60 mg/dL Cholesterol/HDL Ratio 5.7 03/07/2014 1:48 AM [facility] [employer] HISTORICAL RESULTS Comment: Cholesterol / HDL Ratio 3.5:1 or less is desirable. Cholesterol / HDL Ratio greater than 5:1 is considered higher risk for developing heart disease. 03/07/2014 12:5 3 AM ADULT SCHOOL TEACHER 03/07/2014 1:06 AM ADULT SCHOOL TEACHER Narrative [employer] HISTORICAL RESULTS - 03/07/2014 1:48 AM ADULT SCHOOL TEACHER Vira MARIE LAB BLOOD ORDERABLES Final Re sult Performing Organization Address [facility] Co de Phone Number [facility] [employer] [facility] * Lipase (03/07/2014 12:53 AM ADULT SCHOOL TEACHER) Lipase 25 13 - 60 U/L 03/07/2014 1:48 AM [facility] [employer] HISTORICAL RESULTS 03/07/2014 12:5 3 AM ADULT SCHOOL TEACHER 03/07/2014 1:06 AM ADULT SCHOOL TEACHER Narrative [facility] HISTORICAL RESULTS - 03/07/2014 1:48 AM ADULT SCHOOL TEACHER Vira MARIE LAB BLOOD ORDERABLES Final Re sult Performing Organization Address City/[facility]/ZIP Co de Phone Number [facility] HISTORICAL RESULTS * (ABNORMAL) Comprehensive metabolic panel (03/07/2014 12:53 AM ADULT SCHOOL TEACHER) Sodium 129(L) 135 - 145 mmol/L 03/07/2014 1:48 AM [facility] [employer] HISTORICAL RESULTS Potassium 4.6 3.3 - 5.1 mmol/L Chloride 91(L) 96 - 108 mmol/L Carbon Dioxide 26 22 - 32 mmol/L 03/07/2014 1:48 AM [facility] [employer] [facility] HISTORICAL RESULTS Anion Gap 12 7 - 16 03/07/2014 1:[address] [facility] Glucose 382(H) 70 - 100 mg/dL 03/07/2014 1:48 AM [facility] [employer] [facility] Comment:As of January 21 14 new normal range in use. BUN 30(H) 6 - 20 mg/dL 03/07/2014 1:48 AM [facility] [employer] [facility] Creatinine 1.1 0.5 - 1.1 mg/dL 03/07/2014 1:48 AM [facility] [employer] [facility] Kidney Disease Stage 70 mL/MIN 03/07/2014 1:48 AM [facility] [employer] [facility] Comment: NOTE; ??The GFR is [...] Kidney failure or on dialysis @ Calcium 9.5 8.6 - 10.0 mg/dL Total Protein 8.7(H) 6.4 - 8.3 g/dL Albumin 4.1 3.5 - 5.2 g/dL Globulin 4.6(H) 2.3 - 3.5 gm/dL Albumin/Globulin Ratio 0.9(L) 1.1 - 1.8 Total Bilirubin < 0.2 0.0 - 1.2 mg/dL AST 12 0 - 32 U/L ALT 16 0 - 33 U/L Alkaline Phosphatase 123(H) 35 - 104 U/L 03/07/2014 12:5 3 AM ADULT SCHOOL TEACHER 03/07/2014 1:06 AM ADULT SCHOOL TEACHER Narrative [facility] HISTORICAL RESULTS - 03/07/2014 1:48 AM ADULT SCHOOL TEACHER Vira MARIE LAB BLOOD ORDERABLES Final Re sult [facility] HISTORICAL RESULTS * (ABNORMAL) CBC with auto differential (03/07/2014 12:53 AM ADULT SCHOOL TEACHER) WBC 10.9(H) 4.6 - 10.2 x10 3/ul RBC 4.03 3.76 - 4.80 x10 6/ul Hemoglobin 12.1 11.0 - 15.0 g/dl Hct 35.7 33.0 - 43.0 % MCV 88.6 80.0 - 97.0 fl MCH 30.0 27.0 - 31.2 pg MCHC 33.9 31.8 - 35.4 g/dl 03/07/2014 1:[address] [facility] RDW 11.7 11.6 - 14.8 % Plt Count 246 124 - 400 x10 3/ul MPV 11.5(H) 7.4 - 10.4 fl 03/07/2014 1:[address] [facility] Differential Method AUTOMATED DIFF --------- -- 03/07/2014 1:15 AM ADULT SCHOOL TEACHER [facility] HISTORICAL RESULTS Neut % 52.4 37.0 - 85.0 % 03/07/2014 1:[address] [facility] Immature Gran % 0.2 0.0 - 3.0 % 03/07/2014 1:[address] [facility] Lymph % 41.2 5.0 - 45.0 % 03/07/2014 1:[address] [facility] Real % 5.0 3.0 - 15.0 % 03/07/2014 1:15 AM ADULT SCHOOL TEACHER [facility] HISTORICAL RESULTS Eos % 0.6 0.0 - 7.0 % 03/07/2014 1:15 AM ADULT SCHOOL TEACHER [facility] HISTORICAL RESULTS Baso % 0.6 0.0 - 2.0 % 03/07/2014 1:[address] [facility]ULTS ABSOLUTE COUNTS ABSOLUTE COUNTS --------- -- 03/07/2014 1:15 AM [employer] [facility] HISTORICAL RESULTS Absolute Neuts (auto) 5.7 1.7 - 8.7 x10 3/ul 03/07/2014 1:15 AM [employer] [facility] [employer] [facility] Immature Gran # 0.0 0.0 - 0.3 x10 3/ul 03/07/2014 1:15 AM [facility] [employer] HISTORICAL RESULTS Absolute Lymphs (auto) 4.5 0.2 - 4.6 x10 3/ul 03/07/2014 1:15 AM ADULT SCHOOL TEACHER [facility] HISTORICAL RESULTS Absolute Monos (auto) 0.5 0.1 - 1.5 x10 3/ul 03/07/2014 1:[address] [facility] Absolute Eos (auto) 0.1 0.0 - 0.7 x10 3/ul 03/07/2014 1:[address] Absolute Basos (auto) 0.1 0.0 - 0.2 x10 3/ul 03/07/2014 1:[address]ULTS 03/07/2014 12:5 3 AM ADULT SCHOOL TEACHER 03/07/2014 1:06 AM ADULT SCHOOL TEACHER Narrative [facility] [employer] [facility] - 03/07/2014 1:15 AM ADULT SCHOOL TEACHER Vira MARIE LAB BLOOD ORDERABLES Final Re sult Performing Organization Address [facility]/ZIP Co de Phone Number [facility] HISTORICAL RESULTS * Amylase (03/07/2014 12:53 AM ADULT SCHOOL TEACHER) Amylase 49 28 - 100 U/L 03/07/2014 1:48 AM [facility] [employer] [facility] 03/07/2014 12:5 3 AM ADULT SCHOOL TEACHER 03/07/2014 1:06 AM ADULT SCHOOL TEACHER Narrative [facility] [employer] [facility] RESULTS - 03/07/2014 1:48 AM ADULT SCHOOL TEACHER Vira MARIE LAB BLOOD ORDERABLES Final Re sult Performing Organization Address [facility]/State/ZIP Co de Phone Number [facility] HISTORICAL RESULTS * (ABNORMAL) UA with Culture Reflex (03/07/2014 12:10 AM ADULT SCHOOL TEACHER) Ur Collection Type CLEAN CATCH 03/07/2014 12:36 AM [facility] [employer] [facility] Ur Culture Indicated? C&S NOT INDICATED 03/07/2014 12:36 AM [facility] [employer] HISTORICAL RESULTS Urine Color COLORLESS YELLOW 03/07/2014 12:[address] [facility] Urine Clarity CLEAR CLEAR Urine Glucose (UA) 1000(H) NORMAL mg/dL Urine Bilirubin NEGATIVE NEGATIVE mg/dl Urine Ketones NEGATIVE NEGATIVE mg/dL Ur Specific Canby 1.014 1.005 - 1.025 Urine Blood NEGATIVE NEGATIVE mg/dl Urine pH 5.0 5.0 - 8.0 Urine Protein NEGATIVE NEGATIVE mg/dL Urine Urobilinogen NORMAL NORMAL mg/dL Urine Nitrite NEGATIVE NEGATIVE Ur Leukocyte Esterase NEGATIVE NEGATIVE Benedicto/ul Ur Microscopic Review Not Indicated 03/07/2014 12:1 0 AM ADULT SCHOOL TEACHER 03/07/2014 12:23 AM ADULT SCHOOL TEACHER Narrative [facility] HISTORICAL RESULTS - 03/07/2014 12:36 AM ADULT SCHOOL TEACHER Collected By aww ?? 821 Vira Dickey PA LAB URINE ORDERABLES Final Re sult [facility] HISTORICAL RESULTS * XR Chest Pa Lateral 2 Views (03/07/2014 12:00 AM ADULT SCHOOL TEACHER) Anatomical Region Laterality Modality Body, Chest N/A Radiographic Shelli ging 03/07/2014 Impressions 03/07/2014 1:00 AM ADULT SCHOOL TEACHER ??No active chest disease. THIS IS AN ELECTRONICALLY VERIFIED REPORT 03/07/2014 12:57 AM: ??Jabari Rodrigues M.D. Jabari Rodrigues M.D. MA:zuhair 12:57 AM 12:57 AM [facility] [EOD] Narrative 03/07/2014 1:00 AM ADULT SCHOOL TEACHER EXAMINATION: ??Chest 2 views HISTORY: Abdominal pain COMPARISON: ??Chest x-ray ??October 07, 2013 FINDINGS: ??PA and lateral views of the chest were obtained. Cardiac silhouette and pulmonary vascularity are normal. ??No consolidation, pleural effusion, or evidence of pneumothorax. Procedure Note Provider, MD Dawson - 07/06/2020 EXAMINATION: Chest 2 views HISTORY: Abdominal pain COMPARISON: Chest x-ray October 07, 2013 FINDINGS: PA and lateral views of the chest were obtained. Cardiacsilhouette and pulmonary vascularity are normal. No consolidation, pleural effusion,or evidence of pneumothorax. IMPRESSION: No active chest disease. THIS IS AN ELECTRONICALLY VERIFIED REPORT 03/07/2014 12:57 AM: Jabari Rodrigues M.D. Jabari Rodrigues M.D. MA:zuhair 12:57 AM 12:57 AM [facility] [EOD] Vira MARIE IMG XR PROCEDURES Final Resul t * CT Abdomen Pelvis W Contrast (03/07/2014 12:00 AM ADULT SCHOOL TEACHER) Anatomical Region Laterality Modality Body N/A Computed Tomogra phy 03/07/2014 Impressions 03/07/2014 3:41 AM ADULT SCHOOL TEACHER 1. ??No acute finding in the abdomen or pelvis. 2. ??Questionable 1.2 cm hyperenhancing solid lesion in the right lobe of liver anteriorly. ??Differential diagnosis would include focal nodular hyperplasia. ?? Recommend follow-up enhanced MRI on a non emergent basis to further characterize the lesion. 3. ??Chronic right-sided pelvicaliectasis without right ureterectasis and with renal cortical thinning overlying the dilated calyces. ??The findings are nonspecific but suggestive of chronic vesicoureteral reflux. THIS IS AN ELECTRONICALLY VERIFIED REPORT 03/07/2014 3:37 AM: ??Jabari Rodrigues M.D. Jabari Rodrigues M.D. MA:zuhair 03:37 AM 03:37 AM [facility] [EOD] Narrative 03/07/2014 3:41 AM ADULT SCHOOL TEACHER EXAMINATION: ??CT abdomen and pelvis with contrast HISTORY: ??Epigastric abdominal pain. COMPARISON: ??CT abdomen pelvis February 18, 2012 TECHNIQUE: ??Axial CT images through the abdomen and pelvis were obtained after the uneventful intravenous administration of 100 mL of Omnipaque 350 via the right forearm IV.. FINDINGS: ?? Abdomen: There is a questionable 1.2 cm hyperenhancing lesion in the anterior segment of the right lobe of liver on axial image 47. The pancreas and adrenal glands are normal. ??There is a wedge-shaped hypodense lesion in the posterior spleen on axial image 38, which may represent an old splenic infarct. ??There is chronic severe right pelvicaliectasis without ureterectasis. ??There is cortical thinning overlying the dilated right renal calyces. ??The findings are suggestive of right-sided vesicoureteral reflux. ??Stable 2 mm nonobstructing right renal calculus on axial image 46. ??No obstructing right ureteral calculi or mass lesions seen. ??There is a 3 mm nonobstructing left renal calculus unchanged. ??The normal appendix is seen on axial image 82. ??There is no evidence of bowel obstruction. ??There is colonic diverticulosis without evidence of acute diverticulitis. No abdominal aortic aneurysm. ??No mesenteric or retroperitoneal lymphadenopathy. ??There is a small fat-containing umbilical hernia. Pelvis: No bladder calculi seen. ??There are multiple pelvic phleboliths. ??No pelvic or inguinal lymphadenopathy. Procedure Note Provider, MD Dawson - 07/06/2020 EXAMINATION: CT abdomen and pelvis with contrast HISTORY: Epigastric abdominal pain. COMPARISON: CT abdomen pelvis February 18, 2012 TECHNIQUE: Axial CT images through the abdomen and pelvis were obtainedafter the uneventful intravenous administration of 100 mL of Omnipaque 350 viathe right forearm IV.. FINDINGS: Abdomen: There is a questionable 1.2 cm hyperenhancing lesion in theanterior segment of the right lobe of liver on axial image 47. The pancreas andadrenal glands are normal. There is a wedge-shaped hypodense lesion in theposterior spleen on axial image 38, which may represent an old splenic infarct.There is chronic severe right pelvicaliectasis without ureterectasis. There is cortical thinning overlying the dilated right renal calyces. The findingsare suggestive of right-sided vesicoureteral reflux. Stable 2 mmnonobstructing right renal calculus on axial image 46. No obstructing right ureteralcalculi or mass lesions seen. There is a 3 mm nonobstructing left renal calculus unchanged. The normal appendix is seen on axial image 82. There is no evidence of bowel obstruction. There is colonic diverticulosis without evidence of acute diverticulitis. No abdominal aortic aneurysm. Nomesenteric or retroperitoneal lymphadenopathy. There is a small fat-containingumbilical hernia. Pelvis: No bladder calculi seen. There are multiple pelvic phleboliths.No pelvic or inguinal lymphadenopathy. IMPRESSION: 1. No acute finding in the abdomen or pelvis. 2. Questionable 1.2 cm hyperenhancing solid lesion in the right lobe ofliver anteriorly. Differential diagnosis would include focal nodularhyperplasia. Recommend follow-up enhanced MRI on a non emergent basis to further characterize the lesion. 3. Chronic right-sided pelvicaliectasis without right ureterectasis andwith renal cortical thinning overlying the dilated calyces. The findings are nonspecific but suggestive of chronic vesicoureteral reflux. THIS IS AN ELECTRONICALLY VERIFIED REPORT 03/07/2014 3:37 AM: Jabari Rodrigues M.D. Jabari Rodrigues M.D. MA:zuhair 03:37 AM 03:37 AM [facility] [EOD] Vira Dickey PA IMG CT PROCEDURES Final Resul t documented in this encounter Visit Diagnoses Diagnosis Abdominal pain, epigastric Type 2 or unspecified type diabetes mellitus Other specified disorders of liver Essential hypertension Unspecified essential hypertension Other and unspecified hyperlipidemia Encounter for long-term (current) use of insulin (HCC) Encounter for long-term (current) use of insulin documented in this encounter
--- OUTSIDE RECORDS SUMMARY | 2024-03-02 22:18 | XMS_ITS | Encounter Summary ---
Author Organization [facility] Healthcare Address [address] [place] [id number] Care Team Providers Care Seed Analysis Laboratory Assistant Name Role Phone Unavailable Primary Care Provider Unavailabl e Encounter Details Date Type Department Care Team (Latest Contact Info) Description 08/27/2013 6:42 AM CDT - 08/27/2013 9:11 AM CDT Hospital Encounter [facility] Tod Silverio MD [address] [place] [address] Pain in soft tissues of limb; Hereditary and idiopathic peripheral neuropathy; Essential hypertension; Type 2 or unspecified type diabetes mellitus; Encounter for long-term (current) use of insulin (HCC) Social History Tobacco Use Types Packs/Day Years Used Date Smoking Tobacco: Never Assessed Comments Unknown Sex and Gender Information Value Date Recorded Sex Assigned at Not on file Legal Sex Female 10:55 AM [employer] Gender Identity Not on file Sexual Orientation Not on file documented as of this encounter Last Filed Vital Signs Vital Sign Reading Time Taken Comments Blood Pressure 158/88 08/27/2013 6:45 AM CDT Pulse 84 08/27/2013 6:45 AM CDT Temperature 37.1 ??C (98.7 ??F) 08/27/2013 6:45 AM CD T Respiratory Rate - - Oxygen Saturation 100% 08/27/2013 6:45 AM CDT Inhaled Oxygen Concentration - - Weight 88.9 kg (196 lb) 08/27/2013 6:45 AM CDT Height 167.6 cm (5' 6 ) 08/27/2013 6:45 AM CDT Body Mass Index 31.64 08/27/2013 6:45 AM CDT documented in this encounter Plan of Treatment Not on file documented as of this encounter Procedures Procedure Name Priority Date/Time Associated Diagnosis Comments URINALYSIS AND REFLEX TO MICROSCOPIC AND CULTURE Routine 08/27/2013 8:20 AM CDT CBC WITH AUTO DIFFERENTIAL Routine 08/27/2013 7:29 AM CDT COMPREHENSIVE METABOLIC PANEL Routine 08/27/2013 7:29 AM CDT US VEIN DUPLEX LOWER EXTREMITY LEFT LIMITED Routine 08/27/2013 12:00 AM CDT documented in this encounter Results * (ABNORMAL) Urinalysis reflex to microscopic and culture (08/27/2013 8:20 AM CDT) Ur Collection Type CLEAN CATCH 08/27/2013 8:49 AM T [employer] HISTORICAL RESULTS Ur Culture Indicated? C&S NOT INDICATED 08/27/2013 8:49 AM [employer] HISTORICAL RESULTS Urine Color COLORLESS YELLOW 08/27/2013 8:49 AM T [facility] HISTORICAL RESULTS Urine Clarity CLEAR CLEAR 08/27/2013 8:49 AM [employer] HISTORICAL RESULTS Urine Glucose (UA) 1000(H) NORMAL mg/dL 08/27/2013 8:49 AM T [facility] [employer] HISTORICAL RESULTS Urine Bilirubin NEGATIVE NEGATIVE mg/dl 08/27/2013 8:49 AM [employer] [facility] HISTORICAL RESULTS Urine Ketones NEGATIVE NEGATIVE mg/dL 08/27/2013 8:49 AM [employer] HISTORICAL RESULTS Ur Specific Waterfall 1.009 1.005 - 1.025 08/27/2013 8:49 AM [employer] [facility] HISTORICAL RESULTS Urine Blood NEGATIVE NEGATIVE mg/dl 08/27/2013 8:49 AM [employer] HISTORICAL RESULTS Urine pH 5.5 5.0 - 8.0 08/27/2013 8:49 AM T [facility] [employer] HISTORICAL RESULTS Urine Protein 30(H) NEGATIVE mg/dL 08/27/2013 8:49 AM [employer] [facility] HISTORICAL RESULTS Urine Urobilinogen NORMAL NORMAL mg/dL 08/27/2013 8:49 AM T [facility] [employer] HISTORICAL RESULTS Urine Nitrite NEGATIVE NEGATIVE 08/27/2013 8:49 AM CDT [facility] HISTORICAL RESULTS Ur Leukocyte Esterase NEGATIVE NEGATIVE Benedicto/ul 08/27/2013 8:49 AM CDT [facility] HISTORICAL RESULTS Ur Microscopic Review Indicated or Ordered 08/27/2013 8:49 AM CDT [facility] HISTORICAL RESULTS Urine RBC 1 0 - 2 /HPF 08/27/2013 8:49 AM CDT [facility] HISTORICAL RESULTS Urine WBC <1 0 - 2 /HPF 08/27/2013 8:49 AM T [facility] HISTORICAL RESULTS Ur Squamous Epith Cells Rare /HPF 08/27/2013 8:49 AM T [facility] HISTORICAL RESULTS 08/27/2013 8:20 AM CDT 08/27/2013 8:42 AM CDT Narrative [facility] HISTORICAL RESULTS - 08/27/2013 8:49 AM CDT Collected By [facility] ?? [id number] ?? us Tod Silverio MD LAB MICROBIOLOGY - GENER AL ORDERABLES Final Result [facility] HISTORICAL RESULTS * (ABNORMAL) Comprehensive metabolic panel (08/27/2013 7:29 AM CDT) Sodium 132(L) 135 - 145 mmol/L 08/27/2013 7:55 AM T [facility] HISTORICAL RESULTS Potassium 4.4 3.3 - 5.1 mmol/L 08/27/2013 7:55 AM T [facility] HISTORICAL RESULTS Chloride 95(L) 96 - 108 mmol/L 08/27/2013 7:55 AM T [facility] HISTORICAL RESULTS Carbon Dioxide 28 22 - 32 mmol/L 08/27/2013 7:55 AM T [facility] HISTORICAL RESULTS Anion Gap 9 7 - 16 08/27/2013 7:55 AM T [facility] HISTORICAL RESULTS Glucose 252(H) 70 - 110 mg/dL 08/27/2013 7:55 AM T [facility] HISTORICAL RESULTS BUN 19 6 - 20 mg/dL 08/27/2013 7:55 AM T [facility] HISTORICAL RESULTS Creatinine 0.7 0.5 - 1.1 mg/dL 08/27/2013 7:55 AM T [facility] HISTORICAL RESULTS Kidney Disease Stage > 90 mL/MIN 08/27/2013 7:[address] [facility] HISTORICAL RESULTS Comment: NOTE; ??The GFR is [...] Kidney failure or on dialysis @ Calcium 9.3 8.6 - 10.0 mg/dL 08/27/2013 7:[address] [facility] HISTORICAL RESULTS Total Protein 8.1 6.6 - 8.7 g/dL 08/27/2013 7:[address] [facility] HISTORICAL RESULTS Albumin 3.9 3.5 - 5.2 g/dL 08/27/2013 7:[address] [facility] HISTORICAL RESULTS Globulin 4.2(H) 2.3 - 3.5 gm/dL 08/27/2013 7:[address] [facility] HISTORICAL RESULTS Albumin/Globulin Ratio 0.9(L) 1.1 - 1.8 08/27/2013 7:[address] [facility] HISTORICAL RESULTS Total Bilirubin 0.3 0.0 - 1.2 mg/dL 08/27/2013 7:[address] [facility] HISTORICAL RESULTS AST 13 0 - 32 U/L 08/27/2013 7:[address] [facility] HISTORICAL RESULTS ALT 14 0 - 33 U/L 08/27/2013 7:[address] [facility] HISTORICAL RESULTS Alkaline Phosphatase 121(H) 35 - 104 U/L 08/27/2013 7:55 AM T [facility] HISTORICAL RESULTS 08/27/2013 7:29 AM CDT 08/27/2013 7:31 AM CDT Narrative [facility] HISTORICAL RESULTS - 08/27/2013 7:55 AM CDT us Tod Silverio MD LAB BLOOD ORDERABLES Fin al Result [facility] HISTORICAL RESULTS * (ABNORMAL) CBC with auto differential (08/27/2013 7:29 AM CDT) WBC 7.9 4.6 - 10.2 x10 3/ul 08/27/2013 7:[address] [facility] HISTORICAL RESULTS RBC 4.38 3.76 - 4.80 x10 6/ul 08/27/2013 7:42 AM T [facility] HISTORICAL RESULTS Hemoglobin 13.5 11.0 - 15.0 g/dl 08/27/2013 7:42 AM T [facility] HISTORICAL RESULTS Hct 38.4 33.0 - 43.0 % 08/27/2013 7:[address] [facility] HISTORICAL RESULTS MCV 87.7 80.0 - 97.0 fl 08/27/2013 7:[address] [facility] HISTORICAL RESULTS MCH 30.8 27.0 - 31.2 pg 08/27/2013 7:[address] [facility] HISTORICAL RESULTS MCHC 35.2 31.8 - 35.4 g/dl 08/27/2013 7:42 AM T [facility] HISTORICAL RESULTS RDW 12.5 11.6 - 14.8 % 08/27/2013 7:[address] [facility] HISTORICAL RESULTS Plt Count 234 124 - 400 x10 3/ul 08/27/2013 7:[address] [facility] HISTORICAL RESULTS MPV 11.2(H) 7.4 - 10.4 fl 08/27/2013 7:[address] [facility] HISTORICAL RESULTS Differential Method AUTOMATED DIFF --------- -- 08/27/2013 7:[address] [facility] HISTORICAL RESULTS Neut % 66.1 37.0 - 85.0 % 08/27/2013 7:[address] [facility] HISTORICAL RESULTS Immature Gran % 0.3 0.0 - 3.0 % 08/27/2013 7:[address] [facility] HISTORICAL RESULTS Lymph % 28.0 5.0 - 45.0 % 08/27/2013 7:[address] [facility] HISTORICAL RESULTS [place] % 4.5 3.0 - 15.0 % 08/27/2013 7:[address] [facility] HISTORICAL RESULTS Eos % 0.6 0.0 - 7.0 % 08/27/2013 7:[address] [facility] HISTORICAL RESULTS Baso % 0.5 0.0 - 2.0 % 08/27/2013 7:[address] [facility] HISTORICAL RESULTS ABSOLUTE COUNTS ABSOLUTE COUNTS --------- -- 08/27/2013 7:[address] [facility] HISTORICAL RESULTS Absolute Neuts (auto) 5.3 1.7 - 8.7 x10 3/ul 08/27/2013 7:[address] [facility] HISTORICAL RESULTS Immature Gran # 0.0 0.0 - 0.3 x10 3/ul 08/27/2013 7:[address] [facility] HISTORICAL RESULTS Absolute Lymphs (auto) 2.2 0.2 - 4.6 x10 3/ul 08/27/2013 7:[address] [facility] HISTORICAL RESULTS Absolute Monos (auto) 0.4 0.1 - 1.5 x10 3/ul 08/27/2013 7:[address] [facility] HISTORICAL RESULTS Absolute Eos (auto) 0.1 0.0 - 0.7 x10 3/ul 08/27/2013 7:[address] [facility] HISTORICAL RESULTS Absolute Basos (auto) 0.0 0.0 - 0.2 x10 3/ul 08/27/2013 7:[address] [facility] HISTORICAL RESULTS 08/27/2013 7:29 AM CDT 08/27/2013 7:[address] [facility] HISTORICAL RESULTS - 08/27/2013 7:42 AM CDT Tod Silverio MD LAB BLOOD ORDERABLES Fin al Result [facility] HISTORICAL RESULTS * US Vein Duplex Lower Extremity Left Limited (08/27/2013 12:00 AM CDT) Anatomical Region Laterality Modality Vascular Left Ultrasound 08/27/2013 Impressions 08/29/2013 4:57 PM CDT ?? 1. ??Possible lymphadenopathy 2. ??No evidence of venous thrombotic change left lower extremity. NTS Job: [id number] Dictated By: Joseph Alfaro MD Dictated For: Joseph Alfaro MD [EOD] Narrative 08/29/2013 4:57 PM CDT DATE OF SERVICE: 08/27/2013 Venous Doppler and imaging study of the left lower extremity. ?? INDICATION: ??Bilateral lower extremity edema, status post kidney surgery in June of this year. This study shows normal flow characteristics throughout the entire deep venous system of the left lower extremity. ??Imaging confirms no evidence of venous thrombotic change; however, there was an area in the left groin that could be an enlarged lymph node. ??Clinical correlation required. Procedure Note Provider, MD Dawson - 07/06/2020 DATE OF SERVICE: 08/27/2013 Venous Doppler and imaging study of the left lower extremity. INDICATION: Bilateral lower extremity edema, status post kidney surgeryin June of this year. This study shows normal flow characteristics throughout the entire deepvenous system of the left lower extremity. Imaging confirms no evidenceof venous thrombotic change; however, there was an area in the left grointhat could be an enlarged lymph node. Clinical correlation required. IMPRESSION: 1. Possible lymphadenopathy 2. No evidence of venous thrombotic change left lower extremity. NTS Job: [id number] Dictated By: Joseph Alfaro MD Dictated For: Joseph Alfaro MD [EOD] Tod Silverio MD IMG US PROCEDURES Final Result documented in this encounter Visit Diagnoses Diagnosis Pain in soft tissues of limb Hereditary and idiopathic peripheral neuropathy Unspecified hereditary and idiopathic peripheral neuropathy Essential hypertension Unspecified essential hypertension Type 2 or unspecified type diabetes mellitus Encounter for long-term (current) use of insulin (HCC) Encounter for long-term (current) use of insulin documented in this encounter
--- OUTSIDE RECORDS SUMMARY | 2024-03-02 22:18 | XMS_ITS | Encounter Summary ---
Author Organization [facility] Healthcare Address [address] [place] [id number] Care Team Providers Care Box Stapler Name Role Phone Unavailable Primary Care Provider Unavailabl e Encounter Details Date Type Department Care Team (Latest Contact Info) Description 02/09/2015 8:51 PM WEEKEND CAREGIVER - 02/14/2015 3:15 PM WEEKEND CAREGIVER Hospital Encounter [facility] Stevenson Khoury MD [address] [place] [address] Sepsis (CMS/HCC); Other acute osteomyelitis, left ankle and foot ([facility]); Cellulitis of left lower extremity; Hyperlipidemia; Essential (primary) hypertension; Type 2 diabetes mellitus with autonomic neuropathy (CMS/HCC); halfway current use of insulin (CMS/[facility]); Allergy status to penicillin; Type 2 diabetes mellitus with foot ulcer (CODE) ([facility]); Constipation; Obesity; Body mass index (BMI) of 31.0-31.9 in adult; Dizziness and giddiness; 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 ([facility]) Social History Tobacco Use Types Packs/Day Years Used Date Smoking Tobacco: Never Assessed Comments Unknown Sex and Gender Information Value Date Recorded Sex Assigned at Not on file Legal Sex Female 10:55 AM WEEKEND CAREGIVER Gender Identity Not on file Sexual Orientation Not on file documented as of this encounter Last Filed Vital Signs Vital Sign Reading Time Taken Comments Blood Pressure 122/82 02/13/2015 5:04 PM WEEKEND CAREGIVER Pulse 72 02/13/2015 5:04 PM WEEKEND CAREGIVER Temperature 37.1 ??C (98.8 ??F) 02/13/2015 5:04 PM CS T Respiratory Rate - - Oxygen Saturation 100% 02/13/2015 5:04 PM WEEKEND CAREGIVER Inhaled Oxygen Concentration - - Weight 87.1 kg (192 lb) 02/13/2015 5:04 PM WEEKEND CAREGIVER Height 167.6 cm (5' 6 ) 02/13/2015 5:04 PM WEEKEND CAREGIVER Body Mass Index 30.99 02/13/2015 5:04 PM WEEKEND CAREGIVER documented in this encounter Plan of Treatment Not on file documented as of this encounter Procedures Procedure Name Priority Date/Time Associated Diagnosis Comments SCAN - PATHOLOGY 02/17/2015 12:0 0 AM WEEKEND CAREGIVER SCAN - LABS 02/17/2015 12:00 AM WEEKEND CAREGIVER CREATININE WITH GFR Routine 02/14/2015 5 :02 AM WEEKEND CAREGIVER CBC WITH AUTO DIFFERENTIAL Routine 02/13/2015 5:04 AM WEEKEND CAREGIVER VANCOMYCIN LEVEL TROUGH Routine 02/13/2015 5:04 AM WEEKEND CAREGIVER BASIC METABOLIC PANEL Routine 02/13/2015 5:04 AM WEEKEND CAREGIVER PROTEIN ELECTROPHORESIS, WITH REFLEX, SERUM Routine 02/12/2015 1:24 PM WEEKEND CAREGIVER CREATININE WITH GFR Routine 02/12/2015 7 :29 AM WEEKEND CAREGIVER TSH Routine 02/12/2015 7:29 AM WEEKEND CAREGIVER HCG, BLOOD, QUANTITATIVE Routine 02/11/2015 10:29 AM WEEKEND CAREGIVER GLUCOSE, RANDOM Routine 02/11/2015 10:29 AM WEEKEND CAREGIVER CREATININE WITH GFR Routine 02/11/2015 8 :58 AM WEEKEND CAREGIVER CBC WITH AUTO DIFFERENTIAL Routine 02/11/2015 8:58 AM WEEKEND CAREGIVER ERYTHROCYTE SEDIMENTATION RATE Routine 02/11/2015 8:58 AM WEEKEND CAREGIVER VANCOMYCIN LEVEL TROUGH Routine 02/11/2015 8:58 AM WEEKEND CAREGIVER BASIC METABOLIC PANEL Routine 02/11/2015 8:58 AM WEEKEND CAREGIVER PROCEDURE - RESULT 02/11/2015 12 :00 AM WEEKEND CAREGIVER MICROBIOLOGY SPECIMEN REPORT (CONVERTED) Routine 02/10/2015 12:14 PM WEEKEND CAREGIVER MICROBIOLOGY SPECIMEN REPORT (CONVERTED) Routine 02/10/2015 10:43 AM WEEKEND CAREGIVER CBC WITH AUTO DIFFERENTIAL Routine 02/10/2015 8:58 AM WEEKEND CAREGIVER HEMOGLOBIN A1C Routine 02/10/2015 8:58 AM WEEKEND CAREGIVER BASIC METABOLIC PANEL Routine 02/10/2015 8:58 AM WEEKEND CAREGIVER MRI LOWER EXT NON-JOINT LEFT Routine 02/10/2015 12:00 AM WEEKEND CAREGIVER CREATININE WITH GFR Routine 02/09/2015 1 0:16 PM WEEKEND CAREGIVER UA WITH CULTURE REFLEX Routine 5 6:26 PM WEEKEND CAREGIVER LACTATE Routine 02/09/2015 5:30 PM WEEKEND CAREGIVER CBC WITH AUTO DIFFERENTIAL Routine 02/09/2015 5:30 PM WEEKEND CAREGIVER PROTIME-INR Routine 02/09/2015 5:30 PM WEEKEND CAREGIVER COMPREHENSIVE METABOLIC PANEL Routine 02/09/2015 5:30 PM WEEKEND CAREGIVER US VEIN DUPLEX LOWER EXTREMITY LEFT LIMITED Routine 02/09/2015 12:00 AM WEEKEND CAREGIVER XR FOOT LEFT 3 OR MORE VIEWS Routine 02/09/2015 12:00 AM WEEKEND CAREGIVER documented in this encounter Results * SCAN - LABS (02/17/2015 12:00 AM WEEKEND CAREGIVER) Narrative 02/17/2015 12:00 AM WEEKEND CAREGIVER Ordered by an unspecified provider. us Historical Provider Final Res ult * SCAN - PATHOLOGY (02/17/2015 12:00 AM WEEKEND CAREGIVER) Narrative 02/17/2015 12:00 AM WEEKEND CAREGIVER Ordered by an unspecified provider. us Historical Provider Final Res ult * Creatinine with GFR (02/14/2015 5:02 AM WEEKEND CAREGIVER) Creatinine 0.9 0.5 - 1.1 mg/dL 02/14/2015 5:37 AM [facility] HISTORICAL RESULTS Comment: NOTE: Estimated GFR (Cockroft-Gault) will NOT be calculated unless patient Height and Weight were entered. Also, Kidney Disease Stage (GFR) and Estimated GFR (Cockroft-Gault) will NOT be calculated if Creatinine result is <0.2. Kidney Disease Stage 88 mL/MIN 02/14/2015 5:37 AM [facility] HISTORICAL RESULTS Comment: NOTE; ??The GFR [...] or on dialysis @ Est GFR (Cockcroft-G) 90 ml/MIN 02/14/2015 5:37 AM [facility] HISTORICAL RESULTS 02/14/2015 5:02 AM WEEKEND CAREGIVER 02/14/2015 5:06 AM WEEKEND CAREGIVER us Stevenson Terry MD LAB URINE ORDERABLES F inal Result [facility] HISTORICAL RESULTS * (ABNORMAL) CBC with auto differential (02/13/2015 5:04 AM WEEKEND CAREGIVER) WBC 7.7 4.6 - 10.2 x10 3/ul 02/13/2015 5:54 AM WEEKEND CAREGIVER [facility] HISTORICAL RESULTS RBC 3.60(L) 3.76 - 4.80 x10 6/ul 02/13/2015 5:54 AM WEEKEND CAREGIVER [facility] [employer] HISTORICAL RESULTS Hemoglobin 10.9(L) 11.0 - 15.0 g/dl 02/13/2015 5:54 AM [facility] HISTORICAL RESULTS Hct 32.4(L) 33.0 - 43.0 % 02/13/2015 5:54 AM [facility] HISTORICAL RESULTS MCV 90.0 80.0 - 97.0 fl 02/13/2015 5:54 AM [facility] HISTORICAL RESULTS MCH 30.3 27.0 - 31.2 pg 02/13/2015 5:54 AM WEEKEND CAREGIVER [facility] HISTORICAL RESULTS MCHC 33.6 31.8 - 35.4 g/dl 02/13/2015 5:54 AM [facility] HISTORICAL RESULTS RDW 12.0 11.6 - 14.8 % 02/13/2015 5:54 AM [facility] HISTORICAL RESULTS Plt Count 309 124 - 400 x10 3/ul 02/13/2015 5:54 AM [facility] HISTORICAL RESULTS MPV 10.8(H) 7.4 - 10.4 fl 02/13/2015 5:54 AM [facility] HISTORICAL RESULTS Differential Method AUTOMATED DIFF --------- -- 02/13/2015 5:54 AM WEEKEND CAREGIVER [facility] HISTORICAL RESULTS Neut % 63.0 37.0 - 85.0 % 02/13/2015 5:54 AM [facility] HISTORICAL RESULTS Immature Gran % 0.1 0.0 - 3.0 % 02/13/2015 5:54 AM [facility] HISTORICAL RESULTS Lymph % 29.3 5.0 - 45.0 % [place] % 5.6 3.0 - 15.0 % Eos % 1.3 0.0 - 7.0 % Baso % 0.7 0.0 - 2.0 % ABSOLUTE COUNTS ABSOLUTE COUNTS --------- -- Absolute Neuts (auto) 4.8 1.7 - 8.7 x10 3/ul Immature Gran # 0.0 0.0 - 0.3 x10 3/ul Absolute Lymphs (auto) 2.3 0.2 - 4.6 x10 3/ul Absolute Monos (auto) 0.4 0.1 - 1.5 x10 3/ul Absolute Eos (auto) 0.1 0.0 - 0.7 x10 3/ul Absolute Basos (auto) 0.1 0.0 - 0.2 x10 3/ul 02/13/2015 5:04 AM WEEKEND CAREGIVER 02/13/2015 5:47 AM [facility] us Wale Garcia MD LAB BLOOD ORDERABLES Final R esult [facility] HISTORICAL RESULTS * (ABNORMAL) Basic metabolic panel (02/13/2015 5:04 AM [facility]) Sodium 136 135 - 145 mmol/L Potassium 4.3 3.3 - 5.1 mmol/L Chloride 99 96 - 108 mmol/L 02/13/2015 6:10 AM [facility] [employer] HISTORICAL RESULTS Carbon Dioxide 28 22 - 32 mmol/L 02/13/2015 6:10 AM [facility] [employer] [facility] HISTORICAL RESULTS Anion Gap 9 7 - 16 02/13/2015 6:10 AM [facility] [employer] [facility] HISTORICAL RESULTS Glucose 206(H) 70 - 100 mg/dL 02/13/2015 6:10 AM [facility] [employer] [facility] HISTORICAL RESULTS BUN 20 6 - 20 mg/dL 02/13/2015 6:10 AM [facility] [employer] [facility] HISTORICAL RESULTS Creatinine 0.9 0.5 - 1.1 mg/dL 02/13/2015 6:10 AM [facility] [employer] HISTORICAL RESULTS Comment: NOTE: Estimated GFR (Cockroft-Gault) will NOT be calculated unless patient Height and Weight were entered. Also, Kidney Disease Stage (GFR) and Estimated GFR (Cockroft-Gault) will NOT be calculated if Creatinine result is <0.2. Kidney Disease Stage 88 mL/MIN 02/13/2015 6:10 AM [facility] HISTORICAL RESULTS Comment: NOTE; ??The GFR is [...] or on dialysis @ Est GFR (Cockcroft-G) 90 ml/MIN 02/13/2015 6:10 AM [facility] HISTORICAL RESULTS Calcium 8.6 8.6 - 10.0 mg/dL 02/13/2015 6:10 AM WEEKEND CAREGIVER [facility] HISTORICAL RESULTS 02/13/2015 5:04 AM WEEKEND CAREGIVER 02/13/2015 5:47 AM WEEKEND CAREGIVER Wale Garcia MD LAB BLOOD ORDERABLES Final R esult Performing Organization Address [facility] Co de Phone Number [facility] HISTORICAL RESULTS * Vancomycin, trough (02/13/2015 5:04 AM WEEKEND CAREGIVER) Vancomycin Trough 16.7 10.0 - 20.0 ug/mL 02/13/2015 6:49 AM WEEKEND CAREGIVER [facility] HISTORICAL RESULTS Comment: Therapeutic Range Mild Infections: ? 10.0-15.0 ??ug/mL Therapeutic Range Severe/Complicated Infections: ? 15.0-20.0 ??ug/mL 02/13/2015 5:04 AM WEEKEND CAREGIVER 02/13/2015 5:47 AM WEEKEND CAREGIVER Stevenson Terry MD LAB BLOOD ORDERABLES F inal Result Performing Organization Address [facility] de Phone Number [facility] HISTORICAL RESULTS * Protein Electrophoresis, With Reflex, Serum (02/12/2015 1:24 PM WEEKEND CAREGIVER) Pathologist [facility] Total Protein 7.9 6.4 - 8.3 g/dL 02/12/2015 1:57 PM WEEKEND CAREGIVER [facility] HISTORICAL RESULTS Prot Electrophoresis 02/17/2015 1:28 PM WEEKEND CAREGIVER [facility] HISTORICAL RESULTS Comment: PATHOLOGIST COMMENT: ? Hypergammaglobulinemia ?? No paraproteins identified ?? Please see scanned result in the patient's EMR 02/12/2015 1:24 PM WEEKEND CAREGIVER 02/12/2015 1:30 PM WEEKEND CAREGIVER Stevenson Terry MD LAB BLOOD ORDERABLES F inal Result [facility] HISTORICAL RESULTS * TSH (02/12/2015 7:29 AM WEEKEND CAREGIVER) Pathologist [facility] TSH 4.16 0.27 - 4.20 uIU/mL 02/12/2015 1:10 PM WEEKEND CAREGIVER [facility] HISTORICAL RESULTS 02/12/2015 7:29 AM WEEKEND CAREGIVER 02/12/2015 7:46 AM WEEKEND CAREGIVER us Stevenson Terry MD LAB BLOOD ORDERABLES F inal Result Performing Organization Address [facility] Co de Phone Number [facility] HISTORICAL RESULTS * Creatinine with GFR (02/12/2015 7:29 AM WEEKEND CAREGIVER) [facility] Creatinine 1.0 0.5 - 1.1 mg/dL Comment: NOTE: Estimated GFR (Cockroft-Gault) will NOT be calculated unless patient Height and Weight were entered. Also, Kidney Disease Stage (GFR) and Estimated GFR (Cockroft-Gault) will NOT be calculated if Creatinine result is <0.2. Kidney Disease Stage 78 mL/MIN Comment: NOTE; ??The GFR is an [...] or on dialysis @ Est GFR (Cockcroft-G) 81 ml/MIN 02/12/2015 8:08 AM WEEKEND CAREGIVER [facility] HISTORICAL RESULTS 02/12/2015 7:29 AM WEEKEND CAREGIVER 02/12/2015 7:46 AM WEEKEND CAREGIVER us Stevenson Terry MD LAB URINE ORDERABLES F inal Result [facility] HISTORICAL RESULTS * hCG, blood, quantitative (02/11/2015 10:29 AM WEEKEND CAREGIVER) Beta HCG, Quant < 0.1 0.0 - 1.0 mIU/mL 02/11/2015 11:39 AM WEEKEND CAREGIVER [facility] HISTORICAL RESULTS Comment: Weeks of preg ?BHCG ? Weeks of preg ? BHCG ?3 ? 5.8-71.2 ?10 ? 46,509-186,977 ?4 ? 9.5-750 ? 12 ? 27,832-210,612 ?5 ? 217-7,138 ? 14 ? 13,950-62,530 ?6 ? 158-31,795 ?15 ? 12,039-70,971 ?7 ?3,697-163,563 ?16 ?9,040-56,451 ?8 ? 32,065-149,571 ?17 ?8,175-55,868 ?9 ? 63,803-151,410 ?18 ?8,099-58,176 Post-menopause: ??0-8.3 ?METHOD: ??Richy ECLIA Intended for the early detection of . ? 02/11/2015 10:2 9 AM WEEKEND CAREGIVER 02/11/2015 11:06 AM WEEKEND CAREGIVER us Stevenson Terry MD LAB BLOOD ORDERABLES F inal Result Performing Organization Address [facility] de Phone Number [facility] HISTORICAL RESULTS * (ABNORMAL) Glucose, random (02/11/2015 10:29 AM WEEKEND CAREGIVER) Glucose 147(H) 70 - 100 mg/dL 02/11/2015 11:30 AM WEEKEND CAREGIVER [facility] HISTORICAL RESULTS 02/11/2015 10:2 9 AM WEEKEND CAREGIVER 02/11/2015 11:06 AM WEEKEND CAREGIVER Narrative [facility] HISTORICAL RESULTS - 02/11/2015 11:30 AM WEEKEND CAREGIVER Comment fasting ? us Antelmo Pardo MD LAB BLOOD ORDERABLES F inal Result Performing Organization Address [facility] de Phone Number [facility] HISTORICAL RESULTS * Creatinine with GFR (02/11/2015 8:58 AM WEEKEND CAREGIVER) Creatinine 0.7 0.5 - 1.1 mg/dL 02/11/2015 9:43 AM WEEKEND CAREGIVER [facility] HISTORICAL RESULTS Comment: NOTE: Estimated GFR (Cockroft-Gault) will NOT be calculated unless patient Height and Weight were entered. Also, Kidney Disease Stage (GFR) and Estimated GFR (Cockroft-Gault) will NOT be calculated if Creatinine result is <0.2. Kidney Disease Stage > 90 mL/MIN 02/11/2015 9:43 AM WEEKEND CAREGIVER [facility] HISTORICAL RESULTS Comment: NOTE; ??The GFR is [...] or on dialysis @ Est GFR (Cockcroft-G) 115 ml/MIN 02/11/2015 8:58 AM WEEKEND CAREGIVER 02/11/2015 9:14 AM WEEKEND CAREGIVER Narrative [facility] HISTORICAL RESULTS - 02/11/2015 9:43 AM WEEKEND CAREGIVER us Stevenson Terry MD LAB URINE ORDERABLES F inal Result [facility] HISTORICAL RESULTS * (ABNORMAL) CBC with auto differential (02/11/2015 8:58 AM WEEKEND CAREGIVER) WBC 7.9 4.6 - 10.2 x10 3/ul RBC 3.64(L) 3.76 - 4.80 x10 6/ul Hemoglobin 11.1 11.0 - 15.0 g/dl Hct 32.8(L) 33.0 - 43.0 % 02/11/2015 9:20 AM [facility] HISTORICAL RESULTS MCV 90.1 80.0 - 97.0 fl MCH 30.5 27.0 - 31.2 pg MCHC 33.8 31.8 - 35.4 g/dl RDW 12.3 11.6 - 14.8 % Plt Count 297 124 - 400 x10 3/ul MPV 10.7(H) 7.4 - 10.4 fl Differential Method AUTOMATED DIFF --------- -- Neut % 68.8 37.0 - 85.0 % Immature Gran % 0.3 0.0 - 3.0 % 02/11/2015 9:20 AM [facility] HISTORICAL RESULTS Lymph % 23.8 5.0 - 45.0 % [place] % 5.3 3.0 - 15.0 % 02/11/2015 9:20 AM [facility] HISTORICAL RESULTS Eos % 1.0 0.0 - 7.0 % 02/11/2015 9:20 AM [facility] HISTORICAL RESULTS Baso % 0.8 0.0 - 2.0 % ABSOLUTE COUNTS ABSOLUTE COUNTS --------- -- 02/11/2015 9:20 AM [facility] HISTORICAL RESULTS Absolute Neuts (auto) 5.4 1.7 - 8.7 x10 3/ul 02/11/2015 9:20 AM [facility] HISTORICAL RESULTS Immature Gran # 0.0 0.0 - 0.3 x10 3/ul 02/11/2015 9:20 AM WEEKEND CAREGIVER [facility] HISTORICAL RESULTS Absolute Lymphs (auto) 1.9 0.2 - 4.6 x10 3/ul 02/11/2015 9:20 AM WEEKEND CAREGIVER [facility] HISTORICAL RESULTS Absolute Monos (auto) 0.4 0.1 - 1.5 x10 3/ul 02/11/2015 9:20 AM WEEKEND CAREGIVER [facility] HISTORICAL RESULTS Absolute Eos (auto) 0.1 0.0 - 0.7 x10 3/ul 02/11/2015 9:20 AM WEEKEND CAREGIVER [facility] HISTORICAL RESULTS Absolute Basos (auto) 0.1 0.0 - 0.2 x10 3/ul 02/11/2015 8:58 AM WEEKEND CAREGIVER 02/11/2015 9:14 AM WEEKEND CAREGIVER Narrative [facility] HISTORICAL RESULTS - 02/11/2015 9:20 AM WEEKEND CAREGIVER Wale Garcia MD LAB BLOOD ORDERABLES Final R esult [facility] HISTORICAL RESULTS * (ABNORMAL) Basic metabolic panel (02/11/2015 8:58 AM WEEKEND CAREGIVER) Sodium 136 135 - 145 mmol/L Potassium 4.3 3.3 - 5.1 mmol/L Chloride 100 96 - 108 mmol/L Carbon Dioxide 29 22 - 32 mmol/L Anion Gap 7 7 - 16 Glucose 160(H) 70 - 100 mg/dL BUN 22(H) 6 - 20 mg/dL Creatinine 0.8 0.5 [...] or on dialysis @ Est GFR (Cockcroft-G) 101 ml/MIN Calcium 8.6 8.6 - 10.0 mg/dL 02/11/2015 8:58 AM WEEKEND CAREGIVER 02/11/2015 9:14 AM WEEKEND CAREGIVER Narrative [facility] HISTORICAL RESULTS - 02/11/2015 9:42 AM WEEKEND CAREGIVER us Wale Garcia MD LAB BLOOD ORDERABLES Final R esult [facility] HISTORICAL RESULTS * (ABNORMAL) Erythrocyte sedimentation rate (02/11/2015 8:58 AM WEEKEND CAREGIVER) ESR 123(H) 0 - 10 mm/hr 02/11/2015 9:25 AM WEEKEND CAREGIVER [facility] HISTORICAL RESULTS 02/11/2015 8:58 AM WEEKEND CAREGIVER 02/11/2015 9:14 AM WEEKEND CAREGIVER Narrative [facility] HISTORICAL RESULTS - 02/11/2015 9:25 AM WEEKEND CAREGIVER us Wale Garcia MD LAB BLOOD ORDERABLES Final R esult Performing Organization Address [facility] Co de Phone Number [facility] HISTORICAL RESULTS * Vancomycin, trough (02/11/2015 8:58 AM WEEKEND CAREGIVER) Pathologist [facility] Vancomycin Trough 14.4 10.0 - 20.0 ug/mL 02/11/2015 9:39 AM WEEKEND CAREGIVER [facility] HISTORICAL RESULTS Comment: Therapeutic Range Mild Infections: ? 10.0-15.0 ??ug/mL Therapeutic Range Severe/Complicated Infections: ? 15.0-20.0 ??ug/mL 02/11/2015 8:58 AM WEEKEND CAREGIVER 02/11/2015 9:14 AM WEEKEND CAREGIVER Narrative [facility] HISTORICAL RESULTS - 02/11/2015 9:39 AM WEEKEND CAREGIVER us Stevenson Terry MD LAB BLOOD ORDERABLES F inal Result Performing Organization Address [facility] de Phone Number [facility] HISTORICAL RESULTS * PROCEDURE - RESULT (02/11/2015 12:00 AM WEEKEND CAREGIVER) Narrative 02/11/2015 12:00 AM WEEKEND CAREGIVER Ordered by an unspecified provider. us Historical Provider Final Res ult * Microbiology Specimen Report (Converted) (02/10/2015 12:14 PM WEEKEND CAREGIVER) 02/10/2015 12:1 4 PM WEEKEND CAREGIVER 02/10/2015 12:29 PM WEEKEND CAREGIVER Narrative [facility] HISTORICAL RESULTS - 02/10/2015 12:14 PM WEEKEND CAREGIVER Microbiology Specimen Report (Converted) SPECIMEN [id number] ?? COLLECTED: 2015-02-10 12:14:00 [id number] ?? REQ#: [id number] REQUESTING DR: Stevenson Terry MD ?? SOURCE: BLOOD ?? SP DESC: COMMENT: LAC BC Draw ? RAC BC Draw ?? --- PROCEDURE --- ?--- RESULT --- ?? CULTURE BLOOD ADULT (SET OF 2) ??(Final) ??- ??Performed at [facility] ?* NO GROWTH DAY 5 - [facility] ? [address] ? [place] [address] ? Oj Nunes MD Procedure Note 05/11/2018 Microbiology Specimen Report (Converted) SPECIMEN [id number] COLLECTED: 2015-02-10 12:14:00 [id number] REQ#:[id number] REQUESTING DR: Stevenson Terry MD SOURCE: BLOOD SP DESC: COMMENT: LAC BC Draw RAC BC Draw --- PROCEDURE --- --- RESULT --- CULTURE BLOOD ADULT (SET OF 2) (Final) - Performed at [facility] * NO GROWTH DAY 5 - [place] [address] Oj Nunes MD Stevenson Terry MD LAB BLOOD ORDERABLES F inal Result [facility] HISTORICAL RESULTS * Microbiology Specimen Report (Converted) (02/10/2015 10:43 AM WEEKEND CAREGIVER) 02/10/2015 10:4 3 AM WEEKEND CAREGIVER 02/10/2015 10:56 AM WEEKEND CAREGIVER Narrative [facility] HISTORICAL RESULTS - 02/10/2015 10:43 AM WEEKEND CAREGIVER Microbiology Specimen Report (Converted) SPECIMEN [id number] ?? COLLECTED: 2015-02-10 10:43:00 [id number] ?? REQ#: [id number] REQUESTING DR: Stevenson Terry MD ?? SOURCE: BLOOD ?? SP DESC: COMMENT: LAC BC Draw ?? --- PROCEDURE --- ?--- RESULT --- ?? CULTURE BLOOD ADULT (SET OF 2) ??(Final) ??- ??Performed at [facility] ?* NO GROWTH DAY 5 - [facility] ? [address] ? [place] [address] ? Oj Nunes MD Procedure Note 05/11/2018 Microbiology Specimen Report (Converted) SPECIMEN [id number] COLLECTED: 2015-02-10 10:43:00 [id number] REQ#:[id number] REQUESTING DR: Stevenson Terry MD SOURCE: BLOOD SP DESC: COMMENT: LAC BC Draw --- PROCEDURE --- --- RESULT --- CULTURE BLOOD ADULT (SET OF 2) (Final) - Performed at [facility] * NO GROWTH DAY 5 - [address] [address] Oj Nunes MD us Stevenson Terry MD LAB BLOOD ORDERABLES F inal Result [facility] [employer] HISTORICAL RESULTS * (ABNORMAL) CBC with auto differential (02/10/2015 8:58 AM WEEKEND CAREGIVER) [facility] WBC 9.2 4.6 - 10.2 x10 3/ul 02/10/2015 9:40 AM WEEKEND CAREGIVER [facility] [employer] HISTORICAL RESULTS RBC 3.66(L) 3.76 - 4.80 x10 6/ul 02/10/2015 9:40 AM WEEKEND CAREGIVER [facility] [employer] HISTORICAL RESULTS Hemoglobin 11.3 11.0 - 15.0 g/dl 02/10/2015 9:40 AM WEEKEND CAREGIVER [facility] [employer] HISTORICAL RESULTS Hct 33.2 33.0 - 43.0 % 02/10/2015 9:40 AM [facility]EEKEND CAREGIVER [facility] HISTOR[facility] RESULTS MCV 90.7 80.0 - 97.0 fl 02/10/2015 9:40 AM WEEKEND CAREGIVER [facility] [employer] HISTORICAL RESULTS MCH 30.9 27.0 - 31.2 pg 02/10/2015 9:40 AM [facility] [employer] HISTORICAL RESULTS MCHC 34.0 31.8 - 35.4 g/dl 02/10/2015 9:40 AM WEEKEND CAREGIVER [facility] HISTORICAL RESULTS RDW 12.6 11.6 - 14.8 % 02/10/2015 9:40 AM [facility] HISTORICAL RESULTS Plt Count 282 124 - 400 x10 3/ul 02/10/2015 9:40 AM [facility] HISTORICAL RESULTS MPV 11.2(H) 7.4 - 10.4 fl 02/10/2015 9:40 AM [facility] HISTORICAL RESULTS Differential Method AUTOMATED DIFF --------- -- 02/10/2015 9:40 AM [facility] HISTORICAL RESULTS Neut % 68.1 37.0 - 85.0 % 02/10/2015 9:40 AM [facility] HISTORICAL RESULTS Immature Gran % 0.3 0.0 - 3.0 % 02/10/2015 9:40 AM [facility] [employer] [facility] HISTORICAL RESULTS Lymph % 24.5 5.0 - 45.0 % 02/10/2015 9:40 AM [facility]ivo [facility] HISTOR[facility] RESULTS [place] % 5.3 3.0 - 15.0 % 02/10/2015 9:40 AM [facility] [facility] HISTORICAL RESULTS Eos % 1.3 0.0 - 7.0 % 02/10/2015 9:40 AM [facility] HISTORICAL RESULTS Baso % 0.5 0.0 - 2.0 % 02/10/2015 9:40 AM [facility] HISTORICAL RESULTS ABSOLUTE COUNTS ABSOLUTE COUNTS --------- -- 02/10/2015 9:40 AM [facility] HISTOR[facility] RESULTS Absolute Neuts (auto) 6.3 1.7 - 8.7 x10 3/ul 02/10/2015 9:40 AM Nativo [facility] [employer] [facility] Immature Gran # 0.0 0.0 - 0.3 x10 3/ul 02/10/2015 9:40 AM Nativo [facility] [employer] [facility] H[facility]OR[facility] RESULTS Absolute Lymphs (auto) 2.3 0.2 - 4.6 x10 3/ul 02/10/2015 9:40 AM [facility]ivo [facility] [employer] [facility] HISTOR[facility] RESULTS Absolute Monos (auto) 0.5 0.1 - 1.5 x10 3/ul 02/10/2015 9:40 AM WEEK[employer] C[facility] HISTORICAL RESULTS Absolute Eos (auto) 0.1 0.0 - 0.7 x10 3/ul 02/10/2015 9:40 AM WEEKEND CAREGIVER [facility] HISTORICAL RESULTS Absolute Basos (auto) 0.1 0.0 - 0.2 x10 3/ul 02/10/2015 8:58 AM WEEKEND CAREGIVER 02/10/2015 9:34 AM WEEKEND CAREGIVER Narrative [facility] HISTORICAL RESULTS - 02/10/2015 9:40 AM WEEKEND CAREGIVER Stevenson Terry MD LAB BLOOD ORDERABLES F inal Result [facility] HISTORICAL RESULTS * (ABNORMAL) Basic metabolic panel (02/10/2015 8:58 AM WEEKEND CAREGIVER) Sodium 136 135 - 145 mmol/L Potassium 4.4 3.3 - 5.1 mmol/L Chloride 100 96 - 108 mmol/L Carbon Dioxide 27 22 - 32 mmol/L Anion Gap 9 7 - 16 Glucose 230(H) 70 - 100 mg/dL BUN 25(H) 6 - 20 mg/dL Creatinine 0.9 0.5 - 1.1 mg/dL Comment: NOTE: Estimated GFR (Cockroft-Gault) will NOT be calculated unless patient Height and Weight were entered. Also, Kidney Disease Stage (GFR) and Estimated GFR (Cockroft-Gault) will NOT be calculated if Creatinine result is <0.2. Kidney Disease Stage 88 mL/MIN Comment: NOTE; ??The GFR is an [...] or on dialysis @ Est GFR (Cockcroft-G) 90 ml/MIN Calcium 8.5(L) 8.6 - 10.0 mg/dL 02/10/2015 8:58 AM WEEKEND CAREGIVER 02/10/2015 9:34 AM WEEKEND CAREGIVER Narrative [facility] HISTORICAL RESULTS - 02/10/2015 10:02 AM WEEKEND CAREGIVER us Stevenson Terry MD LAB BLOOD ORDERABLES F inal Result [facility] HISTORICAL RESULTS * (ABNORMAL) Hemoglobin A1c (02/10/2015 8:58 AM WEEKEND CAREGIVER) Hemoglobin A1c % 10.6(H) 4.8 - 5.9 % 02/10/2015 10:00 AM [facility] [employer] [facility] HISTORICAL RESULTS Comment: [place] [employer] recommends that the goal of therapy should be an A1C hemoglobin of <7%. Reevaluate the treatment regimen in patients with an A1C >8%. 02/10/2015 8:58 AM WEEKEND CAREGIVER 02/10/2015 9:34 AM WEEKEND CAREGIVER Narrative [facility] HISTORICAL RESULTS - 02/10/2015 10:00 AM WEEKEND CAREGIVER Stevenson Terry MD LAB BLOOD ORDERABLES F inal Result [facility] HISTORICAL RESULTS * MRI Lower Ext Non-Joint Left (02/10/2015 12:00 AM WEEKEND CAREGIVER) Anatomical Region Laterality Modality Body N/A Magnetic Resonan ce 02/10/2015 Impressions 02/10/2015 8:51 AM WEEKEND CAREGIVER ?? 1. ??Osteomyelitis within the proximal and middle phalanges of the third digit. 2. ??There is probably early osteomyelitis within the distal phalanx of the third digit. 3. ??There is relative hypo enhancement over the ulceration at the dorsal aspect of the third toe, likely related to devitalized tissue from the ulceration. 4. ??No subcutaneous abscess is present. 5. ??Abnormal signal within the medial cuneiform, middle cuneiform, base of the second metatarsal and proximal shaft and the proximal shaft of the third metatarsal. 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 6. ??Differential consideration for the signal within the proximal shaft of the second metatarsal is stress reaction. THIS IS AN ELECTRONICALLY VERIFIED REPORT 02/10/2015 8:50 AM: ??Pietro Park M.D. Pietro Park M.D. AT:kristi 08:31 AM 08:37 AM [facility] [EOD] Narrative 02/10/2015 8:51 AM WEEKEND CAREGIVER EXAMINATION: ??MRI of the left forefoot with and without contrast Date: ??02/09/2015. COMPARISON: ??Radiographs 02/09/2015, MR 05/20/2014. Indication: ??Ulcer left foot third toe for 2 weeks with pain localized to the ulcer. Purulent ulcer. ??Concern for osteomyelitis. TECHNIQUE: ??3 plane T1, 3 plain STIR, short axis T1 fat sat precontrast, 3 plaen T1 fat sat postcontrast sequences of the forefoot were obtained. ?? Postcontrast sequences were obtained after intravenous administration of 15 mL Multihance via the right forearm. FINDINGS: ??Diffuse abnormal signal is present within the proximal and middle phalanges of the third digit. ??There is less pronounced increased T2 signal within the distal phalanx. ??Pronounced loss of signal is seen on the T1-weighted sequences within the middle and distal phalanges. ??There may be mild loss of signal within the distal phalanx. ??Signal within the head of the third metatarsal is preserved. ??There is no third metatarsophalangeal joint effusion. Abnormal increased T2 signal is noted within the medial cuneiform, middle cuneiform, base and proximal shaft of the second metatarsal, as well as within the proximal shaft of the third metatarsal. ??Moderate osteoarthritic changes are noted at the tarsometatarsal articulation. ??There is mild corresponding loss of T1-weighted signal in the regions of increased T2 signal. ??Lisfranc ligament is intact on image 9 of series 701. ??Moderate osteoarthritic changes of the talonavicular joint are noted. Moderate increased T2 signal is noted within the subcutaneous soft tissues localized over the dorsal aspect of the foot. ??Imaged flexor and extensor tendons appear intact. ??There is relative hypo enhancement over the dorsal aspect of the third phalanx in the region of the ulceration. ??Evaluation of that region is somewhat limited due to generalized signal loss. ??No peripherally enhancing fluid collection is identified. ??Increased T2 signal is noted within the musculature of the plantar aspect of the foot. Procedure Note Provider, MD Dawson - 07/06/2020 EXAMINATION: MRI of the left forefoot with and without contrast Date: 02/09/2015. COMPARISON: Radiographs 02/09/2015, MR 05/20/2014. Indication: Ulcer left foot third toe for 2 weeks with pain localized tothe ulcer. Purulent ulcer. Concern for osteomyelitis. TECHNIQUE: 3 plane T1, 3 plain STIR, short axis T1 fat sat precontrast, 3 plaen T1 fat sat postcontrast sequences of the forefoot were obtained. Postcontrast sequences were obtained after intravenous administration of15 mL Multihance via the right forearm. FINDINGS: Diffuse abnormal signal is present within the proximal andmiddle phalanges of the third digit. There is less pronounced increased [id number] within the distal phalanx. Pronounced loss of signal is seen on the T1-weighted sequences within the middle and distal phalanges. There maybe mild loss of signal within the distal phalanx. Signal within the head ofthe third metatarsal is preserved. There is no third metatarsophalangealjoint effusion. Abnormal increased T2 signal is noted within the medial cuneiform, middle cuneiform, base and proximal shaft of the second metatarsal, as well aswithin the proximal shaft of the third metatarsal. Moderate osteoarthriticchanges are noted at the tarsometatarsal articulation. There is mildcorresponding loss of T1-weighted signal in the regions of increased T2 signal.Lisfranc ligament is intact on image 9 of series 701. Moderate osteoarthriticchanges of the talonavicular joint are noted. Moderate increased T2 signal is noted within the subcutaneous soft tissues localized over the dorsal aspect of the foot. Imaged flexor and extensor tendons appear intact. There is relative hypo enhancement over the dorsal aspect of the third phalanx in the region of the ulceration. Evaluationof that region is somewhat limited due to generalized signal loss. No peripherally enhancing fluid collection is identified. Increased [id number] is noted within the musculature of the plantar aspect of the foot. IMPRESSION: 1. Osteomyelitis within the proximal and middle phalanges of the thirddigit. 2. There is probably early osteomyelitis within the distal phalanx of the third digit. 3. There is relative hypo enhancement over the ulceration at the dorsal aspect of the third toe, likely related to devitalized tissue from the ulceration. 4. No subcutaneous abscess is present. 5. Abnormal signal within the medial cuneiform, middle cuneiform, base ofthe second metatarsal and proximal shaft and the proximal shaft of the third metatarsal. The distribution and appearance is overall similar datingback to 05/20/2014, suspected to be related to Charcot arthropathy. Moderate osteoarthritic changes of the tarsometatarsal joints are noted. 6. Differential consideration for the signal within the proximal shaft ofthe second metatarsal is stress reaction. THIS IS AN ELECTRONICALLY VERIFIED REPORT 02/10/2015 8:50 AM: Pietro Park M.D. Pietro Park M.D. AT:bb 08:31 AM 08:37 AM [facility] [EOD] us Stevenson Terry MD IMG MRI PROCEDURES Fin al Result * Creatinine with GFR (02/09/2015 10:16 PM WEEKEND CAREGIVER) Creatinine 0.8 0.5 - 1.1 mg/dL Comment: [...] or on dialysis @ Est GFR (Cockcroft-G) 101 ml/MIN 02/09/2015 10:59 PM [facility] [employer] HISTORICAL RESULTS 02/09/2015 10:1 6 PM WEEKEND CAREGIVER 02/09/2015 10:27 PM WEEKEND CAREGIVER us Stevenson Terry MD LAB URINE ORDERABLES F inal Result [facility] HISTORICAL RESULTS * (ABNORMAL) UA with Culture Reflex (02/09/2015 6:26 PM WEEKEND CAREGIVER) Ur Collection Type CLEAN CATCH 02/09/2015 6:53 PM [facility]ISTORICAL RESULTS Ur Culture Indicated? C&S NOT INDICATED 02/09/2015 7:07 PM [facility] [employer] HISTORICAL RESULTS Urine Color STRAW YELLOW 02/09/2015 7:07 PM [facility] HISTORICAL RESULTS Urine Clarity CLEAR CLEAR 02/09/2015 7:07 PM [facility] HISTORICAL RESULTS Urine Glucose (UA) 150(H) NORMAL mg/dL 02/09/2015 7:07 PM [facility] HISTORICAL RESULTS Urine Bilirubin NEGATIVE NEGATIVE mg/dl 02/09/2015 7:07 PM [facility] HISTORICAL RESULTS Urine Ketones NEGATIVE NEGATIVE mg/dL 02/09/2015 7:07 PM [facility] [employer] HISTORICAL RESULTS Ur Specific [place] 1.008 1.005 - 1.025 02/09/2015 7:07 PM [facility] HISTORICAL RESULTS Urine Blood NEGATIVE NEGATIVE mg/dl 02/09/2015 7:07 PM [facility] [employer] HISTORICAL RESULTS Urine pH 5.5 5.0 - 8.0 02/09/2015 7:07 PM [facility] HISTORICAL RESULTS Urine Protein 10(H) NEGATIVE mg/dL 02/09/2015 7:07 PM [facility] [employer] HISTORICAL RESULTS Urine Urobilinogen NORMAL NORMAL mg/dL 02/09/2015 7:07 PM [facility] HISTORICAL RESULTS Urine Nitrite NEGATIVE NEGATIVE Ur Leukocyte Esterase NEGATIVE NEGATIVE [place]/ul Ur Microscopic Review Not Indicated 02/09/2015 6:26 PM WEEKEND CAREGIVER 02/09/2015 6:52 PM WEEKEND CAREGIVER Douglas MARIE LAB URINE ORDERABLES Final Result Performing Organization Address [facility] Co de Phone Number [facility] HISTORICAL RESULTS * Protime-INR (02/09/2015 5:30 PM WEEKEND CAREGIVER) PT 12.5 12.2 - 14.8 SECONDS INR 0.90 0.01 - 5.99 Comment: Recommended Therapeutic range for Oral Anticoagulant Therapy No anti-coagulation therapy ? Normal Range: ?0.8-1.4 Anti-coagulation therapy ? Low intensity therapy ?2.0-3.0 ? High intensity therapy ?? 2.5-3.5 Critical Value ? Greater than or equal to 6.0 Patients should be monitored for serious bleeding. ?? 02/09/2015 5:30 PM WEEKEND CAREGIVER 02/09/2015 5:43 PM WEEKEND CAREGIVER Narrative [facility] HISTORICAL RESULTS - 02/09/2015 6:03 PM WEEKEND CAREGIVER Douglas MARIE LAB BLOOD ORDERABLES Final Result Performing Organization Address [facility]/ZIP Co de Phone Number [facility] HISTORICAL RESULTS * Lactate (02/09/2015 5:30 PM WEEKEND CAREGIVER) L-Lactate 0.5 mmol/L 02/09/2015 6:08 PM WEEKEND CAREGIVER [facility] HISTORICAL RESULTS Comment:Lactate Reference Ra nge: 0.5 - 2.2 mmol/L 02/09/2015 5:30 PM WEEKEND CAREGIVER 02/09/2015 5:43 PM WEEKEND CAREGIVER Narrative [facility] HISTORICAL RESULTS - 02/09/2015 6:08 PM WEEKEND CAREGIVER us Douglas MARIE LAB BLOOD ORDERABLES Final Result [facility] HISTORICAL RESULTS * (ABNORMAL) Comprehensive metabolic panel (02/09/2015 5:30 PM WEEKEND CAREGIVER) Sodium 135 135 - 145 mmol/L 02/09/2015 6:17 PM WEEKEND CAREGIVER [facility] HISTORICAL RESULTS Potassium 3.8 3.3 - 5.1 mmol/L 02/09/2015 6:17 PM WEEKEND CAREGIVER [facility] HISTORICAL RESULTS Chloride 98 96 - 108 mmol/L Carbon Dioxide 26 22 - 32 mmol/L Anion Gap 11 7 - 16 Glucose 145(H) 70 - 100 mg/dL BUN 23(H) 6 - 20 mg/dL Creatinine 0.9 0.5 - 1.1 mg/dL Comment: NOTE: Estimated GFR (Cockroft-Gault) will NOT be calculated unless patient Height and Weight were entered. Also, Kidney Disease Stage (GFR) and Estimated GFR (Cockroft-Gault) will NOT be calculated if Creatinine result is <0.2. Kidney Disease Stage 88 mL/MIN Comment: NOTE; ??The GFR is an [...] or on dialysis @ Est GFR (Cockcroft-G) 89 ml/MIN Calcium 9.7 8.6 - 10.0 mg/dL Total Protein 8.8(H) 6.4 - 8.3 g/dL Albumin 4.0 3.5 - 5.2 g/dL Globulin 4.8(H) 2.3 - 3.5 gm/dL Albumin/Globulin Ratio 0.8(L) 1.1 - 1.8 Total Bilirubin 0.3 0.0 - 1.2 mg/dL AST 23 0 - 32 U/L ALT 20 0 - 33 U/L Alkaline Phosphatase 162(H) 35 - 104 U/L 02/09/2015 5:30 PM WEEKEND CAREGIVER 02/09/2015 5:43 PM WEEKEND CAREGIVER [facility] HISTORICAL RESULTS - 02/09/2015 6:17 PM WEEKEND CAREGIVER Douglas MARIE LAB BLOOD ORDERABLES Final Result [facility] HISTORICAL RESULTS * (ABNORMAL) CBC with auto differential (02/09/2015 5:30 PM WEEKEND CAREGIVER) WBC 13.1(H) 4.6 - 10.2 x10 3/ul 02/09/2015 5:53 PM [facility]END CAREG[facility] RESULTS RBC 3.74(L) 3.76 - 4.80 x10 6/ul 02/09/2015 5:53 PM [facility]EEKEND CAREGIVER [facility] HISTORICAL RESULTS Hemoglobin 11.6 11.0 - 15.0 g/dl 02/09/2015 5:53 PM WEEKEND CAREGIVER [facility] HISTORICAL RESULTS Hct 33.5 33.0 - 43.0 % 02/09/2015 5:53 PM [facility]EEKEND CAREGIVER [facility] HISTORICAL RESULTS MCV 89.6 80.0 - 97.0 fl 02/09/2015 5:53 PM WEEKEND CAREGIVER [facility] HISTORICAL RESULTS MCH 31.0 27.0 - 31.2 pg 02/09/2015 5:53 PM WEEKEND CAREGIVER [facility] [employer] [facility] HISTORICAL RESULTS MCHC 34.6 31.8 - 35.4 g/dl 02/09/2015 5:53 PM WEEKEND CAREGIVER [facility] [employer] HISTORICAL RESULTS RDW 12.5 11.6 - 14.8 % 02/09/2015 5:53 PM WEEKEND CAREGIVER [facility] [employer] HISTORICAL RESULTS Plt Count 301 124 - 400 x10 3/ul 02/09/2015 5:53 PM WEEKEND CAREGIVER [facility] [employer] [facility] HISTORICAL RESULTS MPV 11.1(H) 7.4 - 10.4 fl 02/09/2015 5:53 PM [facility] HISTOR[facility] RESULTS Differential Method AUTOMATED DIFF --------- -- 02/09/2015 5:53 PM WEEKEND CAREGIVER [facility] HISTORICAL RESULTS Neut % 70.0 37.0 - 85.0 % 02/09/2015 5:53 PM WEEKEND CAREGIVER [facility] [employer] [facility] HISTORICAL RESULTS Immature Gran % 0.3 0.0 - 3.0 % 02/09/2015 5:53 PM WEEKEND CAREGIVER [facility] [employer] [facility] HISTORICAL RESULTS Lymph % 24.7 5.0 - 45.0 % 02/09/2015 5:53 PM WEEKEND CAREGIVER [facility] [employer] [facility] HISTORICAL RESULTS [place] % 3.7 3.0 - 15.0 % Eos % 0.8 0.0 - 7.0 % Baso % 0.5 0.0 - 2.0 % ABSOLUTE COUNTS ABSOLUTE COUNTS --------- -- Absolute Neuts (auto) 9.2(H) 1.7 - 8.7 x10 3/ul Immature Gran # 0.0 0.0 - 0.3 x10 3/ul Absolute Lymphs (auto) 3.2 0.2 - 4.6 x10 3/ul Absolute Monos (auto) 0.5 0.1 - 1.5 x10 3/ul Absolute Eos (auto) 0.1 0.0 - 0.7 x10 3/ul Absolute Basos (auto) 0.1 0.0 - 0.2 x10 3/ul 02/09/2015 5:30 PM WEEKEND CAREGIVER 02/09/2015 5:43 PM WEEKEND CAREGIVER Narrative [facility] HISTORICAL RESULTS - 02/09/2015 5:53 PM WEEKEND CAREGIVER us Douglas MARIE LAB BLOOD ORDERABLES Final Result [facility] HISTORICAL RESULTS * US Vein Duplex Lower Extremity Left Limited (02/09/2015 12:00 AM WEEKEND CAREGIVER) Anatomical Region Laterality Modality Vascular Left Ultrasound 02/09/2015 Impressions 02/11/2015 12:37 PM WEEKEND CAREGIVER ??No evidence of deep venous thrombosis of the left lower extremity. NTS Job: [id number] Dictated By: Jurgen Godinez MD Dictated For: Jurgen Godinez MD [EOD] Narrative 02/11/2015 12:37 PM WEEKEND CAREGIVER DATE OF SERVICE: 02/09/2015 FINDINGS: ??Duplex scanning with B mode imaging and Doppler flow analysis of the deep venous system of the left lower extremity was carried out. ?? There is normal compressibility, normal flow patterns and absence of intraluminal echogenicity at the level of the common femoral, superficial femoral and popliteal veins, as well as at the level of the posterior tibial and peroneal veins. ??The greater saphenous vein is patent without thrombus formation. Procedure Note Provider, MD Dawson - 07/06/2020 DATE OF SERVICE: 02/09/2015 FINDINGS: Duplex scanning with B mode imaging and Doppler flow analysisof the deep venous system of the left lower extremity was carried out. There is normal compressibility, normal flow patterns and absence ofintraluminal echogenicity at the level of the common femoral, superficialfemoral and popliteal veins, as well as at the level of the posteriortibial and peroneal veins. The greater saphenous vein is patent withoutthrombus formation. IMPRESSION: No evidence of deep venous thrombosis of the left lowerextremity. NTS Job: [id number] Dictated By: Jurgen Godinez MD Dictated For: Jurgen Godinez MD [EOD] Douglas MARIE IMG US PROCEDURES Fin al Result * XR Foot Left 3 or More Views (02/09/2015 12:00 AM WEEKEND CAREGIVER) Anatomical Region Laterality Modality Lower Extremities, Foot Left Radiogra phic Imaging 02/09/2015 Impressions 02/09/2015 4:54 PM WEEKEND CAREGIVER ??Severe degenerative change possible neuropathic change ?? THIS IS AN ELECTRONICALLY VERIFIED REPORT 02/09/2015 4:51 PM: ??Herbie Patel M.D. Herbie Patel M.D. GR:gr 04:51 PM 04:51 PM RIL [EOD] Narrative 02/09/2015 4:54 PM WEEKEND CAREGIVER EXAMINATION: ??LEFT ??FOOT HISTORY: ??Ulcer dorsum of fourth digit with increased pain edema COMPARISON: None TECHNIQUE: ??Three views of the LEFT foot were obtained. FINDINGS: ??There is sclerosis and fragmentation in the cuneiform and navicular bones raising possibility of neuropathic joint. ??The mineralization is relatively normal. ??Soft tissue ulcer are not clearly visualized. ??No evidence of erosion at the fourth digit. ??There is soft tissue swelling. Procedure Note Provider, MD Dawson - 07/06/2020 EXAMINATION: LEFT FOOT HISTORY: Ulcer dorsum of fourth digit with increased pain edema COMPARISON: None TECHNIQUE: Three views of the LEFT foot were obtained. FINDINGS: There is sclerosis and fragmentation in the cuneiform andnavicular bones raising possibility of neuropathic joint. The mineralization is relatively normal. Soft tissue ulcer are not clearly visualized. Noevidence of erosion at the fourth digit. There is soft tissue swelling. IMPRESSION: Severe degenerative change possible neuropathic change THIS IS AN ELECTRONICALLY VERIFIED REPORT 02/09/2015 4:51 PM: Herbie Patel M.D. Herbie Patel M.D. 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
--- OUTSIDE RECORDS SUMMARY | 2024-03-02 22:19 | XMS_ITS | Encounter Summary ---
Author Organization [facility] Healthcare Address [address] [place] [id number] Care Team Providers Care Fruit Packer Name Role Phone Unavailable Primary Care Provider Unavailabl e Encounter Details Date Type Department Care Team (Latest Contact Info) Description 03/12/2012 3:05 PM CAMP DINING ROOM ATTENDANT Hospital Encounter [facility] Carroll Alicia MD [address] [place] [address] Other screening mammogram Social History Tobacco Use Types Packs/Day Years Used Date Smoking Tobacco: Never Assessed Comments Unknown Sex and Gender Information Value Date Recorded Sex Assigned at Not on file Legal Sex Female 10:55 AM CAMP DINING ROOM ATTENDANT Gender Identity Not on file Sexual Orientation Not on file documented as of this encounter Plan of Treatment Not on file documented as of this encounter Procedures Procedure Name Priority Date/Time Associated Diagnosis Comments SCREENING MAMMOGRAM 2D BILATERAL Routine 03/12/2012 3:06 PM CAMP DINING ROOM ATTENDANT documented in this encounter Results * Screening Mammogram 2D Bilateral (03/12/2012 3:06 PM CAMP DINING ROOM ATTENDANT) Anatomical Region Laterality Modality Breast Bilateral Mammography 03/12/2012 3:06 PM CAMP DINING ROOM ATTENDANT Impressions 03/12/2012 5:33 PM CAMP DINING ROOM ATTENDANT ?? No mammographic evidence of malignancy. ??Recommend routine annual screening mammography. ASSESSMENT: ??BIRADS: 1 - Negative THIS IS AN ELECTRONICALLY VERIFIED REPORT 03/12/2012 5:29 PM: ??Nova Rothman M.D. Benjamin Zapata:j carlos 05:29 PM 05:29 PM [EOD] Narrative 03/12/2012 5:33 PM CAMP DINING ROOM ATTENDANT EXAMINATION: ??BILATERAL SCREENING MAMMOGRAPHY HISTORY: ??41 year-old presents for a baseline screening mammogram. ??No significant family history of breast cancer. COMPARISON: ??None. TECHNIQUE: ??Bilateral digital full field of view mammography was performed, with the aid of computer aided detection (CAD). FINDINGS: ??The breasts are composed of scattered fatty and fibroglandular tissue. No significant mass, cluster of microcalcifications, architectural distortion or skin thickening are seen. Procedure Note Provider, MD Dawson - 07/06/2020 EXAMINATION: BILATERAL SCREENING MAMMOGRAPHY HISTORY: 41 year-old presents for a baseline screening mammogram. No significant family history of breast cancer. COMPARISON: None. TECHNIQUE: Bilateral digital full field of view mammography wasperformed, with the aid of computer aided detection (CAD). FINDINGS: The breasts are composed of scattered fatty and fibroglandular tissue. No significant mass, cluster of microcalcifications, architectural distortion or skin thickening are seen. IMPRESSION: No mammographic evidence of malignancy. Recommend routine annualscreening mammography. ASSESSMENT: BIRADS: 1 - Negative THIS IS AN ELECTRONICALLY VERIFIED REPORT 03/12/2012 5:29 PM: Nova Rothman M.D. Benjamin Zapata:j carlos 05:29 PM 05:29 PM [EOD] Carroll Velazquez MD IMG MAMMO PROCEDURES Final Result documented in this encounter Visit Diagnoses Diagnosis Other screening mammogram documented in this encounter
--- OUTSIDE RECORDS SUMMARY | 2024-03-02 22:19 | XMS_ITS | Encounter Summary ---
Author Organization [facility] Facility Care Team Providers Care Cupola Patcher Name Role Phone Unavailable Primary Care Provider Unavailabl e Encounter Details Date Type Department Care Team (Late st Contact Info) Description 07/13/2006 - 07/13/2006 11:59 PM CDT Hospital Encounter [facility] Brandon Moran MD [address] [place] [address] Urinary frequency; Hematuria Social History Tobacco Use Types Packs/Day Years Used Date Smoking Tobacco: Never Assessed Comments Unknown Sex and Gender Information Value Date Recorded Sex Assigned at Not on file Legal Sex Female 10:55 AM [employer] Gender Identity Not on file Sexual Orientation Not on file documented as of this encounter Plan of Treatment Not on file documented as of this encounter Visit Diagnoses Diagnosis Urinary frequency Hematuria Hematuria, unspecified documented in this encounter
--- OUTSIDE RECORDS SUMMARY | 2024-03-02 22:19 | XMS_ITS | Encounter Summary ---
Author Organization [facility] Healthcare Address [address] [place] [address] Care Team Providers Care Lookback Coordinator Name Role Phone Unavailable Primary Care Provider Unavailabl e Encounter Details Date Type Department Care Team (Latest Contact Info) Description 03/20/2012 5:44 AM SHANK BURNISHER - 03/24/2012 5:55 PM SHANK BURNISHER Hospital Encounter [facility] Americo Major MD [address] [facility] [address] [place], [place] [id number] Other ureteric obstruction; Hydronephrosis; Mechanical complication of genitourinary device, implant, and graft, other; Essential hypertension; Urinary catheterization as the cause of abnormal reaction of patient, or of later complication; Place of occurrence, residential institution; Type 2 or unspecified type diabetes mellitus with neurological manifestations; Polyneuropathy in diabetes (CMS/HCC) (HCC); Other and unspecified hyperlipidemia; Urinary tract infection Social History Tobacco Use Types Packs/Day Years Used Date Smoking Tobacco: Never Assessed Comments Unknown Sex and Gender Information Value Date Recorded Sex Assigned at Not on file Legal Sex Female 10:55 AM SHANK BURNISHER Gender Identity Not on file Sexual Orientation Not on file documented as of this encounter Last Filed Vital Signs Vital Sign Reading Time Taken Comments Blood Pressure 154/84 03/24/2012 3:49 PM SHANK BURNISHER Pulse 78 03/24/2012 3:49 PM SHANK BURNISHER Temperature - - Respiratory Rate - - Oxygen Saturation - - Inhaled Oxygen Concentration - - Weight 85.7 kg (189 lb) 03/20/2012 4:23 PM SHANK BURNISHER Height 167.6 cm (5' 5.98 ) 03/20/2012 4:23 PM CS T Body Mass Index 30.52 03/20/2012 4:23 PM SHANK BURNISHER documented in this encounter Discharge Summaries * ProviderDawson MD - 03/24/2012 12:00 AM CST DISCHARGE SUMMARY Patient: LENA VALLE Account: [id number] Room No: [id number] : 1970 Patient Type: SDS Attending: Americo Major M.D. Admit Date: 03/20/2012 Dictating: Humble Briseno M.D. Disch. Date: 03/24/2012 Hospital Course: The patient came to the hospital with right flank pain. Cystoscopic examination, insertion of a stent. She was found to have a stone in the ____ ureter. Following that, the patient was discharged home. She will be followed as an outpatient if she has to undergoing a lithotripsy or cystoscopy stone manipulation. Prognosis: Good. Diet: No dietary restrictions. Activity: Minimal activity restrictions. Discharge Medications: 1. Cipro. 2. Vicodin. Humble Briseno M.D. EPP/ct TD: 04/17/2012 14:15 Authenticated by Humble Briseno MD On 04/26/2012 07:33:46 AM documented in this encounter Consult Notes * ProviderDawson MD - 03/20/2012 12:00 AM CST CONSULTATION REPORT Patient: LENA VALLE Account: [id number] Room No: [id number] : 1970 Patient Type: SDS Attending: Americo Major M.D. Admit Date: 03/20/2012 Consult.: Cornel Crockett M.D., F.H.M., F.A.CBelemPBelem Disch. Date: MEDICAL CONSULTATION REPORT DATE OF CONSULTATION: March 20, 2012 REASON FOR CONSULTATION: Medical management for hypertension and diabetes. HISTORY OF PRESENT ILLNESS: This is a 41-year-old -Macanese female with a past medical history of hypertension, diabetes, hyperlipidemia, neuropathy who presented to [facility] for an elective cystoscopy by Dr. Briseno. The patient reports she has been having slight flank pain and was noted to have a right ureteropelvic junction obstruction which she is status post stent placement and now is on IV antibiotics. It is also noted that she had some right hydronephrosis. After the procedure, the patient became nauseated with vomiting which now has resolved. She does state she is compliant with her medications at home. Currently, her blood pressure is elevated at 172/96. She did receive her home medications and we will repeat her blood pressure. She currently is denying any nausea or vomiting. States she is having some mild pain and hematuria which is to be expected. She denies any chest pain, shortness of breath, fevers, chills, headache, blurry vision, numbness, weakness, dizziness. PAST MEDICAL HISTORY: 1. Hypertension diagnosed in 2004. 2. Diabetes diagnosed approximately 10 years ago. 3. Hyperlipidemia. 4. Diabetic peripheral neuropathy. PAST SURGICAL HISTORY: 1. Hysterectomy. 2. Renal stent placement. ALLERGIES: AMOXICILLIN AND PENICILLIN CAUSE HIVES. FAMILY HISTORY: Mother has diabetes and hypertension, father had history of a stroke and hypertension. 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 HOME MEDICATIONS: 1. Gabapentin 300 mg p.o. daily. 2. Simvastatin 50 mg daily. 3. Lisinopril 20 mg p.o. b.i.d. 4. Metoprolol 75 mg p.o. daily. 5. Lantus 42 units subcu at bedtime. REVIEW OF SYSTEMS: A 14-point review of systems is negative except as listed in the history of present illness. PHYSICAL EXAMINATION: Vital signs: Blood pressure is 172/96, pulse 67, respirations 18, temperature is 98.1, oxygen saturation 90%. General: This is a 41-year-old female lying in bed in no acute distress. HEENT: Head is normocephalic and atraumatic. Pupils were equal, round and reactive to light and accommodation. Extraocular movements are intact. Conjunctivae are pink. Sclerae are anicteric. Nares are patent. Mouth: Mucous membranes are moist. Neck is supple. No lymphadenopathy or jugular venous distention. Lungs are clear to auscultation. Cardiovascular: Normal S1, S2. Abdomen is soft, nontender, nondistended with positive bowel sounds. Extremities: No clubbing, cyanosis or edema. Skin is warm and dry. Neuro: Alert and oriented times three. LABORATORY DATA: Hemoglobin and hematocrit 13 and 39. Glucose 223. ASSESSMENT AND PLAN: All diagnoses present on admission 1. Right ureteropelvic junction obstruction, status post cystoscopy and stent placement on Cipro managed by Dr. Briseno. 2. Nausea and vomiting, now resolved. Antiemetics p.r.n. 3. Diabetes type 2, moderately controlled. Will continue Lantus and sliding-scale insulin. 4. Hypertension. Blood pressure is elevated. The patient will be resumed on home medications. Her repeat blood pressure was 140/95. 5. Peripheral neuropathy. Continue gabapentin. 6. Hyperlipidemia. Continue statin. Thank you for allowing us to participate in the care of this patient. Will follow with you. Cornel Crockett M.D., F.H.M., F.A.C.P. Dictated by: Bautista Woods-Agustin GARCIA/kristal TD: 03/21/2012 04:38 Authenticated by Cornel Crockett MD On 03/21/2012 08:25:22 AM Authenticated and Edited by SIMRNA Moreno On 04/02/12 12:22:34 PM documented in this encounter Miscellaneous Notes * Op Note - Provider, MD Dawson - 03/22/2012 12:00 AM CST OPERATIVE REPORT Patient: LENA VALLE Account: [id number] Room No: [id number] : 1970 Patient Type: SDS Attending: Americo Major M.D. Admit Date: 03/20/2012 Surgeon: Humble Briseno M.D. Disch. Date: DATE OF OPERATION March 22, 2012 PREOPERATIVE DIAGNOSIS Stent migration. POSTOPERATIVE DIAGNOSIS Stent migration. NAME OF OPERATION Cystoscopy, ureteroscopy, removal of stent, insertion of a new stent in a good position. DESCRIPTION After the patient was put in the lithotomy position, he was prepped and draped in the usual fashion. A #21 Austrian cystoscope was inserted per urethra. The distal end of the stent was not seen in the bladder on fluoroscopy, could be seen just proximal to the ureteral orifice. Following that, the wire was advanced through the ureter. A 6 Austrian ureteroscope was advanced into the distal ureter. The stent was found, tried to remove it with a forceps but it did not grab the stent and finally I was able to engage it in a basket after several tries and remove it to the meatus. Following that, the wire was advanced through the stent. The longer stent, 28 cm long was advanced over the wire, positioned in the upper collecting system under fluoroscopic control. Under fluoroscopic control, the string was left attached in order to deal with the reposition of the stent if it happened to migrate again without need for further instrumentation. The patient tolerated the procedure well, was sent to the recovery room in good condition. Benjamin Cohn/papito TD: 03/22/2012 10:51 Authenticated by Humble Briseno MD On 03/27/2012 08:28:51 AM * Op Note - Provider, MD Dawson - 03/20/2012 12:00 AM CST OPERATIVE REPORT Patient: LENA VALLE Account: [id number] Room No: [id number] : 1970 Patient Type: SDS Attending: Humble Briseno M.D. Admit Date: 03/20/2012 Surgeon: Humble Briseno M.D. Disch. Date: PREOPERATIVE DIAGNOSIS: Right hydronephrosis. POSTOPERATIVE DIAGNOSIS: Right ureteropelvic junction obstruction. OPERATION: Cystoscopy, retrograde pyelogram, bilateral insertion of a right ureteral stent. PROCEDURE: The patient was put in the lithotomy position under an adequate level of general anesthesia. The field was prepped and draped in the usual fashion. A 22-Austrian cystoscope was inserted per urethra. The bladder was inspected. No tumors or stones were seen. The bladder mucosa was normal. Following that, a retrograde pyelogram was performed on the right side which showed a normal ureter with a very tight ureteropelvic junction and marked hydronephrosis of the upper collecting system with a small pelvis. Retrograde pyelogram on the left side was normal without any hydronephrosis and with drainage. Following that, the wire was advanced into the upper collecting system on the right side. A 6-Austrian/24 cm long stent was advanced over the wire and positioned in the upper collecting system and in the bladder under fluoroscopic control. The wire was removed, leaving the stent behind, in good position. The patient tolerated the procedure well. On the last picture, it looked like the tip of the stent might have migrated to the distal ureter due to the large collecting system. Since the patient should have good bypass of her ureteropelvic junction with the stent in that position, I decided not to reposition the stent at this time. The patient was transferred to the recovery room in good condition, tolerating the procedure well. Humble Briseno M.D. ZOË/zuhair TD: 03/20/2012 09:52 Authenticated by Humble Briseno MD On 03/21/2012 12:24:01 PM documented in this encounter Plan of Treatment Not on file documented as of this encounter Procedures Procedure Name Priority Date/Time Associated Diagnosis Comments BLOOD GLUCOSE, POC Routine 03/24/2012 12 :02 PM SHANK BURNISHER BLOOD GLUCOSE, POC Routine 03/24/2012 7: 58 AM SHANK BURNISHER PLASMA BASIC METABOLIC PANEL Routine 03/24/2012 5:33 AM SHANK BURNISHER DISCHARGE LABORATORY CUMULATIVE REPORT 03/24/2012 BLOOD GLUCOSE, POC Routine 03/23/2012 8: 49 PM SHANK BURNISHER BLOOD GLUCOSE, POC Routine 03/23/2012 5: 17 PM SHANK BURNISHER BLOOD GLUCOSE, POC Routine 03/23/2012 12 :13 PM SHANK BURNISHER BLOOD GLUCOSE, POC Routine 03/23/2012 7: 58 AM SHANK BURNISHER BLOOD GLUCOSE, POC Routine 03/22/2012 9: 03 PM SHANK BURNISHER URINALYSIS Routine 03/22/2012 6:10 PM SHANK BURNISHER BLOOD GLUCOSE, POC Routine 03/22/2012 5: 39 PM SHANK BURNISHER BLOOD GLUCOSE, POC Routine 03/22/2012 11 :12 AM SHANK BURNISHER ABDOMINAL RADIOGRAPHY, FRONTAL (AP) Routine 03/22/2012 10:42 AM SHANK BURNISHER FL FLUOROSCOPY < 1 HOUR Routine 03/22/2012 10:42 AM SHANK BURNISHER BLOOD GLUCOSE, POC Routine 03/22/2012 5: 44 AM SHANK BURNISHER BLOOD GLUCOSE, POC Routine 03/22/2012 12 :03 AM SHANK BURNISHER URINE MICROBIOLOGY Routine 03/22/2012 12 :00 AM SHANK BURNISHER BLOOD GLUCOSE, POC Routine 03/21/2012 8: 37 PM SHANK BURNISHER BLOOD GLUCOSE, POC Routine 03/21/2012 5: 09 PM SHANK BURNISHER BLOOD GLUCOSE, POC Routine 03/21/2012 1: 03 PM SHANK BURNISHER NM DIURETIC RENAL IMAGING (LASIX RENAL SCAN) Routine 03/21/2012 1:02 PM SHANK BURNISHER BLOOD GLUCOSE, POC Routine 03/21/2012 6: 35 AM SHANK BURNISHER BLOOD CELL COUNT (CBC) Routine 03/21/2012 4:34 AM SHANK BURNISHER PLASMA BASIC METABOLIC PANEL Routine 03/21/2012 4:33 AM SHANK BURNISHER BLOOD GLUCOSE, POC Routine 03/20/2012 10 :43 PM SHANK BURNISHER BLOOD HEMOGLOBIN A1C Routine 03/20/2012 10:34 PM SHANK BURNISHER BLOOD GLUCOSE, POC Routine 03/20/2012 8: 11 PM SHANK BURNISHER BLOOD GLUCOSE, POC Routine 03/20/2012 5: 20 PM SHANK BURNISHER BLOOD GLUCOSE, POC Routine 03/20/2012 3: 50 PM SHANK BURNISHER BLOOD GLUCOSE, POC Routine 03/20/2012 10 :11 AM SHANK BURNISHER FL FLUOROSCOPY < 1 HOUR Routine 03/20/2012 10:09 AM SHANK BURNISHER RETROGRADE PYELOGRAM Routine 03/20/2012 10:09 AM SHANK BURNISHER BLOOD GLUCOSE, POC Routine 03/20/2012 9: 03 AM SHANK BURNISHER BLOOD GLUCOSE, POC Routine 03/20/2012 6: 58 AM SHANK BURNISHER BLOOD HEMOGLOBIN Routine 03/20/2012 6:55 AM SHANK BURNISHER BLOOD HEMATOCRIT Routine 03/20/2012 6:55 AM SHANK BURNISHER documented in this encounter Results * (ABNORMAL) Blood glucose, POC (03/24/2012 12:02 PM SHANK BURNISHER) Glucose, POC, bld 161(H) 70 - 99 mg/dl HISTORICAL RESULTS Blood specimen (specimen) 03/24/2012 12:02 PM SHANK BURNISHER Americo Major MD LAB BLOOD ORDERABLES Fi nal Result HISTORICAL RESULTS * (ABNORMAL) Blood glucose, POC (03/24/2012 7:58 AM SHANK BURNISHER) Glucose, POC, bld 175(H) 70 - 99 mg/dl HISTORICAL RESULTS Blood specimen (specimen) 03/24/2012 7:58 AM SHANK BURNISHER Americo Major MD LAB BLOOD ORDERABLES Fi nal Result HISTORICAL RESULTS * (ABNORMAL) Plasma basic metabolic panel (03/24/2012 5:33 AM SHANK BURNISHER) BUN 14 8 - 24 mg/dl HISTORICAL RESULTS Glucose 175(H) 70 - 99 mg/dl HISTORICAL RESULTS Sodium 137 135 - 145 mmol/L HISTORICAL RESULTS K, pl 4.2 3.5 - 5.1 mmol/L HISTORICAL RESULTS Chloride 104 100 - 114 mmol/L HISTORICAL RESULTS CO2 27 22 - 32 mmol/L HISTORICAL RESULTS Creatinine 0.70 0.6 - 1.3 mg/dl HISTORICAL RESULTS Calcium 8.2(L) 8.4 - 10.5 mg/dl HISTORICAL RESULTS A. gap 10 8 - 16 mmol/L HISTORICAL RESULTS eGFR >90 90 - 200 ml/min/1.7 3 m2 HISTORICAL RESULTS Comment: If this individual is -Macanese, multiply result by 1.21 Repeated results of less than 60 is indicative of chronic kidney disease. MDRD formula has not been validated on individuals greater than 70 years old. Plasma 03/24/2012 5:33 AM SHANK BURNISHER Result [facility] Idalia Banuelos MD LAB BLOOD ORDERABLES Final Re sult HISTORICAL RESULTS * DISCHARGE LABORATORY CUMULATIVE REPORT (03/24/2012) Narrative 03/24/2012 Ordered by an unspecified provider. Historical Provider LAB BLOOD ORDERABLES Katheryn l Result * (ABNORMAL) Blood glucose, POC (03/23/2012 8:49 PM SHANK BURNISHER) Glucose, POC, bld 271(H) 70 - 99 mg/dl HISTORICAL RESULTS Blood specimen (specimen) 03/23/2012 8:49 PM SHANK BURNISHER Americo Major MD LAB BLOOD ORDERABLES Fi nal Result Performing Organization Address [facility] de Phone Number HISTORICAL RESULTS * (ABNORMAL) Blood glucose, POC (03/23/2012 5:17 PM SHANK BURNISHER) Glucose, POC, bld 197(H) 70 - 99 mg/dl HISTORICAL RESULTS Blood specimen (specimen) 03/23/2012 5:17 PM SHANK BURNISHER Americo Major MD LAB BLOOD ORDERABLES Fi nal Result Performing Organization Address [facility] de Phone Number HISTORICAL RESULTS * (ABNORMAL) Blood glucose, POC (03/23/2012 12:13 PM SHANK BURNISHER) Glucose, POC, bld 203(H) 70 - 99 mg/dl HISTORICAL RESULTS Blood specimen (specimen) 03/23/2012 12:13 PM SHANK BURNISHER Americo Major MD LAB BLOOD ORDERABLES Fi nal Result Performing Organization Address [facility] de Phone Number HISTORICAL RESULTS * (ABNORMAL) Blood glucose, POC (03/23/2012 7:58 AM SHANK BURNISHER) Glucose, POC, bld 173(H) 70 - 99 mg/dl HISTORICAL RESULTS Blood specimen (specimen) 03/23/2012 7:58 AM SHANK BURNISHER Americo Major MD LAB BLOOD ORDERABLES Fi nal Result Performing Organization Address [facility] de Phone Number HISTORICAL RESULTS * (ABNORMAL) Blood glucose, POC (03/22/2012 9:03 PM SHANK BURNISHER) Glucose, POC, bld 257(H) 70 - 99 mg/dl HISTORICAL RESULTS Blood specimen (specimen) 03/22/2012 9:03 PM SHANK BURNISHER Americo Major MD LAB BLOOD ORDERABLES Fi nal Result Performing Organization Address [facility] de Phone Number HISTORICAL RESULTS * (ABNORMAL) Urinalysis (03/22/2012 6:10 PM SHANK BURNISHER) Color, ur Red HISTORICAL RESULTS Clarity, ur Cloudy(A) Clear HISTORIC AL RESULTS pH, ur 6.0 5 - 7 HISTORICAL RESULTS Specific gravity, ur 1.015 1.001 - 1.033 HISTORICAL RESULTS Protein, ur 2+(A) Negative HISTORIC AL RESULTS Glucose, ur 2+(A) Negative HISTORIC AL RESULTS Ketones, ur Negative Negative HISTORIC AL RESULTS Bilirubin, ur Negative Negative HISTOR ICAL RESULTS U Blood Moderate(A) Negative HISTORIC AL RESULTS Urobilinogen, quant, ur Normal 0.2 - 1.0 mg/dl HISTORICAL RESULTS Nitrites, ur Negative Negative HISTORI SEVERIANO RESULTS Leukocyte esterase, ur Moderate(A) Negative HISTORICAL RESULTS Hyaline casts >25 /lpf HISTOR ICAL RESULTS WBC, ur Packed Field(A) 0 - 5 /hpf HISTORICAL RESULTS RBC, ur Packed Field(A) 0 - 5 /hpf HISTORICAL RESULTS Epithelial cells, ur 2 - 5 /hpf HISTORICAL RESULTS Mucus Present HISTORICAL RESULTS Urine 03/22/2012 6:10 PM SHANK BURNISHER Result [facility] Americo Major MD LAB BLOOD ORDERABLES nal Result Performing Organization Address [facility] de Phone Number HISTORICAL RESULTS * (ABNORMAL) Blood glucose, POC (03/22/2012 5:39 PM SHANK BURNISHER) Glucose, POC, bld 301(H) 70 - 99 mg/dl HISTORICAL RESULTS Blood specimen (specimen) 03/22/2012 5:39 PM SHANK BURNISHER Americo Major MD LAB BLOOD ORDERABLES Fi nal Result Performing Organization Address [facility] de Phone Number HISTORICAL RESULTS * (ABNORMAL) Blood glucose, POC (03/22/2012 11:12 AM SHANK BURNISHER) Glucose, POC, bld 130(H) 70 - 99 mg/dl HISTORICAL RESULTS Blood specimen (specimen) 03/22/2012 11:12 AM SHANK BURNISHER Result [facility] Americo Major MD LAB BLOOD ORDERABLES Fi nal Result HISTORICAL RESULTS * ABDOMINAL RADIOGRAPHY, FRONTAL (AP) (03/22/2012 10:42 AM SHANK BURNISHER) Anatomical Region Laterality Modality N/A Radiographic Shelli ging 03/22/2012 10:4 2 AM SHANK BURNISHER Narrative 03/22/2012 11:23 AM SHANK BURNISHER DATE OF EXAM: ??Feb ??1 2012 10:42AM Acc#: ??[id number] ??EDX 0002 - XR Abd 1 View - AP ?? DIAGNOSIS: ??HYDRONEPHROSIS CLINICAL HISTORY: ?? CYSTOSCOPY/STENT EXCHANGE ?? RESULT: \ ABDOMEN, ONE VIEW HISTORY Hydronephrosis, stent placement. AP supine radiograph of the abdomen compared with the previous examination of 03/20/2012 shows a right ureteral stent in place. ??This appears to be a new stent. IMPRESSION: ?\ WATER TAXI DRIVER: ??DMDamaris TRANSCRIBE DATE/TIME: ??Feb ??1 2012 11:05A RADIOLOGIST: ??NIGEL GAMEZ M.D. ??READ ON: ??Feb ??1 2012 10:51A ORDERING DR: HUMBLE BRISENO M.D. THIS DOCUMENT HAS BEEN ELECTRONICALLY SIGNED BY: ??NIGEL GAMEZ M.D. ??ON: ??Feb ??2012 11:23A Procedure Note Provider, MD Dawson - 06/21/2016 DATE OF EXAM: Mar 22 2012 10:42AM Acc#: [id number] EDX 0002 - XR Abd 1 View - AP DIAGNOSIS: HYDRONEPHROSIS CLINICAL HISTORY: CYSTOSCOPY/STENT EXCHANGE RESULT: \ ABDOMEN, ONE VIEW HISTORY Hydronephrosis, stent placement. AP supine radiograph of the abdomen compared with the previous examination of 03/20/2012 shows a right ureteral stent in place. This appears to be a new stent. IMPRESSION: \ WATER TAXI DRIVER: CHELY TRANSCRIBE DATE/TIME: Mar 22 2012 11:05A RADIOLOGIST: NIGEL GAMEZ M.D. READ ON: Mar 22 2012 10:51A ORDERING DR: HUMBLE PERINETTI M.D. THIS DOCUMENT HAS BEEN ELECTRONICALLY SIGNED BY: NIGEL GAMEZ M.D. ON: Mar 22 2012 11:23A us Historical Provider MD GOMEZ XR PROCEDURES Final R esult * Fluoroscopy < 1 Hour (03/22/2012 10:42 AM SHANK BURNISHER) Anatomical Region Laterality Modality Body N/A Radiographic Shelli ging 03/22/2012 10:4 2 AM SHANK BURNISHER Narrative 03/22/2012 2:54 PM SHANK BURNISHER IMAGES NOT AVAILABLE IN CLINICAL DESKTOP ? FILM(S) AVAILABLE IN RADIOLOGY DATE OF EXAM: ??Feb ??2012 10:42AM Acc#: ??[id number] ??EDX 0202 - XR Fluoro <1 Hr. in .O.R. ?? DIAGNOSIS: ??HYDRONEPHROSIS CLINICAL HISTORY: ?? CYSTOSCOPY/STENT EXCHANGE ?? RESULT: Fluoroscopy was provided by the Department of Radiology and no film(s) were taken. ??A radiology diagnostic report is not required. IMPRESSION: ?Fluoroscopy was provided by the Department of Radiology and no film(s) were taken. ??A radiology diagnostic report is not required. WATER TAXI DRIVER: ??KS6 TRANSCRIBE DATE/TIME: ??Mar ??2012 ??2:54P RADIOLOGIST: ?[facility] M.D. ??READ ON: ??Fe ??2012 ?? 2:54P ORDERING DR: HUMBLE BRISENO M.D. THIS DOCUMENT HAS BEEN ELECTRONICALLY SIGNED BY: ??[facility] MBelemDBelem, ?ON: ??Mar ??2012 ??2:54P Procedure Note Provider, MD Dawson - 06/21/2016 IMAGES NOT AVAILABLE IN CLINICAL DESKTOP FILM(S) AVAILABLE IN RADIOLOGY DATE OF EXAM: Mar 22 2012 10:42AM Acc#: [id number] EDX 0202 - XR Fluoro <1 Hr. in .O.R. DIAGNOSIS: HYDRONEPHROSIS CLINICAL HISTORY: CYSTOSCOPY/STENT EXCHANGE RESULT: Fluoroscopy was provided by the Department of Radiology and no film(s) were taken. A radiology diagnostic report is not required. IMPRESSION: Fluoroscopy was provided by the Department of Radiology and no film(s) were taken. A radiology diagnostic report is notrequired. WATER TAXI DRIVER: WOO TRANSCRIBE DATE/TIME: Mar 22 2012 2:54P RADIOLOGIST: [facility] Benjamin READ ON: Mar 22 2012 2:54P ORDERING DR: HUMBLE BRISENO M.D. THIS DOCUMENT HAS BEEN ELECTRONICALLY SIGNED BY: [facility] Benjamin, ON: Mar 22 20122:54P Historical Provider IMG FLUOROSCOPY PROCEDURE S Final Result * (ABNORMAL) Blood glucose, POC (03/22/2012 5:44 AM SHANK BURNISHER) Glucose, POC, bld 183(H) 70 - 99 mg/dl HISTORICAL RESULTS Blood specimen (specimen) 03/22/2012 5:44 AM SHANK BURNISHER Americo Major MD LAB BLOOD ORDERABLES Fi nal Result Performing Organization Address [facility] de Phone Number HISTORICAL RESULTS * (ABNORMAL) Blood glucose, POC (03/22/2012 12:03 AM SHANK BURNISHER) Glucose, POC, bld 178(H) 70 - 99 mg/dl HISTORICAL RESULTS Blood specimen (specimen) 03/22/2012 12:03 AM SHANK BURNISHER Americo Major MD LAB BLOOD ORDERABLES Fi nal Result Performing Organization Address [facility] de Phone Number HISTORICAL RESULTS * Urine Microbiology (03/22/2012 12:00 AM SHANK BURNISHER) 03/22/2012 Narrative HISTORICAL RESULTS - 03/27/2012 12:37 PM SHANK BURNISHER [facility] ?Patient Name: ?LENA VALLE K ?Med. Rec#: ?? [id number] ?Pt. Acct.#: ??[id number] ?Birthdate: ?? 1970 ?Age / Sex: ?? 41Y / F ?Location: ?DIS[facility] (402) ?Admit Date: ??03/20/2012 ?Discharge Date: ? 03/24/2012 ?Doctor: ?Americo Major MD ?Patient Type: ?CH Observation Culture, Urine ? Collected: 03/22/2012 18:10 Specimen: Urine ?? Specimen Source: Clean Voided Specimen Status: Final ??Last Update: 03/27/2012 11:30 Organism ?? Less than 10,000 cfu/ml of ?? multiple Gram positive organisms Organism ?? Greater than 100,000 cfu/ml of ?? Gardnerella vaginalis ? Sensitivity not performed. Comment ? This culture result is consistent with contamination ?? by normal genital-perineal ketty. Historical Provider LAB MICROBIOLOGY - GENERA L ORDERABLES Final Result Performing Organization Address [facility] de Phone Number HISTORICAL RESULTS * (ABNORMAL) Blood glucose, POC (03/21/2012 8:37 PM SHANK BURNISHER) Glucose, POC, bld 300(H) 70 - 99 mg/dl HISTORICAL RESULTS Blood specimen (specimen) 03/21/2012 8:37 PM SHANK BURNISHER Americo Major MD LAB BLOOD ORDERABLES Fi nal Result Performing Organization Address [facility] de Phone Number HISTORICAL RESULTS * (ABNORMAL) Blood glucose, POC (03/21/2012 5:09 PM SHANK BURNISHER) Glucose, POC, bld 224(H) 70 - 99 mg/dl HISTORICAL RESULTS Blood specimen (specimen) 03/21/2012 5:09 PM SHANK BURNISHER Americo Major MD LAB BLOOD ORDERABLES Fi nal Result Performing Organization Address [facility] de Phone Number HISTORICAL RESULTS * (ABNORMAL) Blood glucose, POC (03/21/2012 1:03 PM SHANK BURNISHER) Glucose, POC, bld 150(H) 70 - 99 mg/dl HISTORICAL RESULTS Blood specimen (specimen) 03/21/2012 1:03 PM SHANK BURNISHER Americo Major MD LAB BLOOD ORDERABLES Fi nal Result Performing Organization Address [facility] de Phone Number HISTORICAL RESULTS * NM Renal Flow And Function W Pharm (03/21/2012 1:02 PM SHANK BURNISHER) Anatomical Region Laterality Modality Body N/A Nuclear Medicine 03/21/2012 1:02 PM SHANK BURNISHER Narrative 03/22/2012 10:35 AM SHANK BURNISHER DATE OF EXAM: ??Mar 21 2012 ??1:02PM Acc#: ??[id number] ??ENM [id number] - NM Renal Flow/Func W/WO Pharm ?? DIAGNOSIS: ??HYDRONEPHROSIS CLINICAL HISTORY: ?? renal scan to determine renal function ?? RESULT: \ NUCLEAR MEDICINE RENAL FLOW AND FUNCTION WITHOUT AND WITH LASIX EXAM DATE: ??03/11/2012. CLINICAL HISTORY: ??Hydronephrosis, post right ureteral stent placement. TECHNIQUE: ??9.9 millicuries of technetium 99m MAG-3 was administered intravenously for the purposes of a renal flow study. ??40 mL Lasix was administered after the initial portion of the scan to evaluate for obstruction. ??A retrograde pyelogram performed on the previous day was reviewed for comparison. FINDINGS: ??The flow images demonstrate decreased flow to the right kidney compared to the left. Activity is seen in the left renal collecting system prior to the right. Activity decreases in the left renal parenchyma over time with only a small amount of activity left in the left renal collecting system at the end of the initial phase of the exam. On the right, activity is still seen in the renal parenchyma as well as in the right renal collecting system. ??Activity is also seen in the bladder. After voiding, activity in the bladder decreases but activity in the right kidney and renal collecting system does not decrease. Mesi-bb-accn activity of the left kidney is 7.0 minutes, which is normal. Pdxk-si-pxnm activity of the right kidney is 19.67 minutes, which is abnormal. ??The differential perfusion is 55% for the left kidney and 45% for the right kidney. ?? After the administration of Lasix, ??only minimal activity is initially seen in the left renal collecting system, which rapidly is excreted. Activity in the right renal parenchyma and collecting system decreases over time with some activity remaining in the right renal collecting system at the end of the exam. ??Half-life of washout of the right kidney after the administration of Lasix is 12 minutes. IMPRESSION: ?\ 1. ??RIGHT HYDRONEPHROSIS WITHOUT EVIDENCE OF OBSTRUCTION. 2. ??NORMAL LEFT RENAL FUNCTION. ? ADDENDUM RESULTS This study demonstrates that with the right ureteral stent in place, the activity in the right renal parenchyma and collecting system does respond to Lasix. ??Therefore, with the right ureteral stent in place, there is no evidence of obstruction. ??This does not imply lack of obstruction without the ureteral stent in place. ? WATER TAXI DRIVER: ??DM2 TRANSCRIBE DATE/TIME: ??Mar 21 2012 ??7:35P RADIOLOGIST: ??NARENDRA JEFF M.D. ??READ ON: ??Feb ??2012 ??9:39A ORDERING DR: HUMBLE BRISENO M.D. THIS DOCUMENT HAS BEEN ELECTRONICALLY SIGNED BY: ??NARENDRA JEFF M.D. ??ON: ??Feb ??2012 10:35A Procedure Note Provider, MD Dawson - 06/21/2016 DATE OF EXAM: Mar 21 2012 1:02PM Acc#: [id number] EN 0041 - NM Renal Flow/Func W/WO Pharm DIAGNOSIS: HYDRONEPHROSIS CLINICAL HISTORY: renal scan to determine renal function RESULT: \ NUCLEAR MEDICINE RENAL FLOW AND FUNCTION WITHOUT AND WITH LASIX EXAM DATE: 03/11/2012. CLINICAL HISTORY: Hydronephrosis, post right ureteral stent placement. TECHNIQUE: 9.9 millicuries of technetium 99m MAG-3 was administered intravenously for the purposes of a renal flow study. 40 mL Lasix was administered after the initial portion of the scan to evaluate for obstruction. A retrograde pyelogram performed on the previous day was reviewed for comparison. FINDINGS: The flow images demonstrate decreased flow to the right kidney compared to the left. Activity is seen in the left renal collecting system prior to the right. Activity decreases in the left renal parenchyma over time with only a small amount of activity left in the left renal collecting system at the end of the initial phase of the exam. On the right, activity is still seen in the renal parenchyma as well as in the right renal collecting system. Activity is also seen in the bladder. After voiding, activity in the bladder decreases but activity in the right kidney and renal collecting system does not decrease. Gyvl-su-yojq activity of the left kidney is 7.0 minutes, which is normal. Gtxf-ts-zooo activity of the right kidney is 19.67 minutes, which is abnormal. The differential perfusion is 55% for the left kidney and 45% for the right kidney. After the administration of Lasix, only minimal activity is initially seen in the left renal collecting system, which rapidly is excreted. Activity in the right renal parenchyma and collecting system decreases over time with some activity remaining in the right renal collecting system at the end of the exam. Half-life of washout of the right kidney after the administration of Lasix is 12 minutes. IMPRESSION: \ 1. RIGHT HYDRONEPHROSIS WITHOUT EVIDENCE OF OBSTRUCTION. 2. NORMAL LEFT RENAL FUNCTION. ADDENDUM RESULTS This study demonstrates that with the right ureteral stent in place, the activity in the right renal parenchyma and collecting system does respond to Lasix. Therefore, with the right ureteral stent in place, there is no evidence of obstruction. This does not imply lack of obstruction without the ureteral stent in place. WATER TAXI DRIVER: CHELY TRANSCRIBE DATE/TIME: Mar 21 2012 7:35P RADIOLOGIST: NARENDRA JEFF M.D. READ ON: Mar 22 2012 9:39A ORDERING DR: HUMBLE BRISENO M.D. THIS DOCUMENT HAS BEEN ELECTRONICALLY SIGNED BY: NARENDRA JEFF M.D. ON: Mar 22 2012 10:35A us Historical Provider MD GOMEZ NM PROCEDURES Final R esult * (ABNORMAL) Blood glucose, POC (03/21/2012 6:35 AM SHANK BURNISHER) [facility] Glucose, POC, bld 214(H) 70 - 99 mg/dl HISTORICAL RESULTS Blood specimen (specimen) 03/21/2012 6:35 AM SHANK BURNISHER Americo Major MD LAB BLOOD ORDERABLES nal Result Performing Organization Address [facility] de Phone Number HISTORICAL RESULTS * (ABNORMAL) Blood cell count (CBC) (03/21/2012 4:34 AM SHANK BURNISHER) [facility] WBC 6.9 5.0 - 10.0 K/cumm HISTORICAL RESULTS RBC 4.12(L) 4.20 - 5.20 M/cumm HISTORICAL RESULTS Hgb 12.7 12.0 - 15.0 g/dl HISTORICAL RESULTS Hct 36.4(L) 37.0 - 47.0 % HISTORICAL RESULTS MCV 88.3 82.0 - 96.0 fl HISTORICAL RESULTS MCH 30.8 27.0 - 32.0 pg HISTORICAL RESULTS MCHC 34.9 29.0 - 35.0 g/dl HISTORICAL RESULTS Platelets 235 150 - 450 K/cumm HISTORICAL RESULTS RDW 42.4 36.4 - 46.3 fl HISTORICAL RESULTS Rdw 13.2 11.5 - 14.5 % HISTORICAL RESULTS MPV 11.2 8.6 - 12.6 fl HISTORICAL RESULTS Blood specimen (specimen) 03/21/2012 4:34 AM SHANK BURNISHER Americo Major MD LAB BLOOD ORDERABLES Fi nal Result HISTORICAL RESULTS * (ABNORMAL) Plasma basic metabolic panel (03/21/2012 4:33 AM SHANK BURNISHER) [facility] BUN 9 8 - 24 mg/dl HISTORICAL RESULTS Glucose 219(H) 70 - 99 mg/dl HISTORICAL RESULTS Sodium 135 135 - 145 mmol/L HISTORICAL RESULTS K, pl 3.7 3.5 - 5.1 mmol/L HISTORICAL RESULTS Chloride 101 100 - 114 mmol/L HISTORICAL RESULTS CO2 28 22 - 32 mmol/L HISTORICAL RESULTS Creatinine 0.64 0.6 - 1.3 mg/dl HISTORICAL RESULTS Calcium 8.0(L) 8.4 - 10.5 mg/dl HISTORICAL RESULTS A. gap 10 8 - 16 mmol/L HISTORICAL RESULTS eGFR >90 90 - 200 ml/min/1.7 3 m2 HISTORICAL RESULTS Comment: If this individual is -Macanese, multiply result by 1.21 Repeated results of less than 60 is indicative of chronic kidney disease. MDRD formula has not been validated on individuals greater than 70 years old. Plasma 03/21/2012 4:33 AM SHANK BURNISHER Americo Major MD LAB BLOOD ORDERABLES Fi nal Result Performing Organization Address [place]/[facility] Co de Phone Number HISTORICAL RESULTS * (ABNORMAL) Blood glucose, POC (03/20/2012 10:43 PM SHANK BURNISHER) Glucose, POC, bld 219(H) 70 - 99 mg/dl HISTORICAL RESULTS Blood specimen (specimen) 03/20/2012 10:43 PM SHANK BURNISHER Americo Major MD LAB BLOOD ORDERABLES Fi nal Result Performing Organization Address [facility] Co de Phone Number HISTORICAL RESULTS * (ABNORMAL) Blood hemoglobin A1C (03/20/2012 10:34 PM SHANK BURNISHER) Hgb A1C 10.8(H) 4.0 - 6.0 % HISTORICAL RESULTS Comment: Hemoglobin A1c ADA Interpretive Guidelines: ?<7% ?? Glycemia controlled ?>8% ?? Hyperglycemia, additional action recommended ?[place] Immunochemical Method Blood specimen (specimen) 03/20/2012 10:34 PM SHANK BURNISHER Narrative HISTORICAL RESULTS - 03/21/2012 6:02 AM SHANK BURNISHER Test performed at [facility], [address] [place] [address], [facility], [address]. Americo Major MD LAB BLOOD ORDERABLES Fi nal Result Performing Organization Address [facility] de Phone Number HISTORICAL RESULTS * (ABNORMAL) Blood glucose, POC (03/20/2012 8:11 PM SHANK BURNISHER) Glucose, POC, bld 315(H) 70 - 99 mg/dl HISTORICAL RESULTS Blood specimen (specimen) 03/20/2012 8:11 PM SHANK BURNISHER Result [facility] Americo Major MD LAB BLOOD ORDERABLES Fi nal Result Performing Organization Address [facility] de Phone Number HISTORICAL RESULTS * (ABNORMAL) Blood glucose, POC (03/20/2012 5:20 PM SHANK BURNISHER) Glucose, POC, bld 150(H) 70 - 99 mg/dl HISTORICAL RESULTS Blood specimen (specimen) 03/20/2012 5:20 PM SHANK BURNISHER Result [facility] Americo Major MD LAB BLOOD ORDERABLES Fi nal Result Performing Organization Address [facility] de Phone Number HISTORICAL RESULTS * (ABNORMAL) Blood glucose, POC (03/20/2012 3:50 PM SHANK BURNISHER) Glucose, POC, bld 183(H) 70 - 99 mg/dl HISTORICAL RESULTS Blood specimen (specimen) 03/20/2012 3:50 PM SHANK BURNISHER Result [facility] Americo Major MD LAB BLOOD ORDERABLES Fi nal Result Performing Organization Address [facility] de Phone Number HISTORICAL RESULTS * (ABNORMAL) Blood glucose, POC (03/20/2012 10:11 AM SHANK BURNISHER) Glucose, POC, bld 138(H) 70 - 99 mg/dl HISTORICAL RESULTS Blood specimen (specimen) 03/20/2012 10:11 AM SHANK BURNISHER Result [facility] Americo Major MD LAB BLOOD ORDERABLES Fi nal Result HISTORICAL RESULTS * XR Retrograde Pyelogram (03/20/2012 10:09 AM SHANK BURNISHER) Anatomical Region Laterality Modality Body N/A Radiographic Shelli ging 03/20/2012 10:0 9 AM SHANK BURNISHER Narrative 03/20/2012 12:33 PM SHANK BURNISHER DATE OF EXAM: ??Mar 20 2012 10:09AM Acc#: ??[id number] ??EDX 0112 - XR Retrograde Pyelogram ?? DIAGNOSIS: ??HYDRONEPHROSIS CLINICAL HISTORY: ?? CYSTOSCOPY/STENT PLACEMENT ?? RESULT: \ RETROGRADE PYELOGRAM, 03/20/12 CLINICAL HISTORY: ??Right hydronephrosis with ureteral stent placement. FINDINGS: Eight fluoroscopic spot images of the abdomen obtained during a retrograde pyelogram were submitted for review without prior for comparison. On the terrazzo polisher image, there is an oval calcification in the left lower quadrant adjacent to the L5 transverse process. This is not within the ureter as seen later on the pyelogram images and may represent a soft tissue calcification. ??There is moderate right hydronephrosis without ureteral dilatation. ??No filling defects are definitely seen. ??The left renal collecting system and ureter are normal. ??A right ureteral stent was placed with the proximal tail in the renal collecting system and the distal tail in the bladder. ?? IMPRESSION: ?\ MODERATE RIGHT HYDRONEPHROSIS WITH RIGHT URETERAL STENT PLACEMENT. WATER TAXI DRIVER: ??SP8 TRANSCRIBE DATE/TIME: ??Mar 20 2012 12:21P RADIOLOGIST: ??NARENDRA JEFF M.D. ??READ ON: ??Mar 20 2012 10:33A ORDERING DR: HUMBLE BRISENO M.D. THIS DOCUMENT HAS BEEN ELECTRONICALLY SIGNED BY: ??NARENDRA JEFF M.D. ??ON: ??Mar 20 2012 12:33P Procedure Note Provider, MD Dawson - 06/21/2016 DATE OF EXAM: Mar 20 2012 10:09AM Acc#: [id number] EDX 0112 - XR Retrograde Pyelogram DIAGNOSIS: HYDRONEPHROSIS CLINICAL HISTORY: CYSTOSCOPY/STENT PLACEMENT RESULT: \ RETROGRADE PYELOGRAM, 03/20/12 CLINICAL HISTORY: Right hydronephrosis with ureteral stent placement. FINDINGS: Eight fluoroscopic spot images of the abdomen obtained during a retrograde pyelogram were submitted for review without prior for comparison. On the terrazzo polisher image, there is an oval calcification in the left lower quadrant adjacent to the L5 transverse process. This is not within the ureter as seen later on the pyelogram images and may represent a soft tissue calcification. There is moderate right hydronephrosis without ureteral dilatation. No filling defects are definitely seen. The left renal collecting system and ureter are normal. A right ureteral stent was placed with the proximal tail in the renal collecting system and the distal tail in the bladder. IMPRESSION: \ MODERATE RIGHT HYDRONEPHROSIS WITH RIGHT URETERAL STENT PLACEMENT. WATER TAXI DRIVER: SP8 TRANSCRIBE DATE/TIME: Mar 20 2012 12:21P RADIOLOGIST: NARENDRA JEFF M.D. READ ON: Mar 20 2012 10:33A ORDERING DR: HUMBLE BRISENO M.D. THIS DOCUMENT HAS BEEN ELECTRONICALLY SIGNED BY: NARENDRA JEFF M.D. ON: Mar 20 2012 12:33P Historical Provider MD GOMEZ FLUOROSCOPY PROCEDURE S Final Result * Fluoroscopy < 1 Hour (03/20/2012 10:09 AM SHANK BURNISHER) Anatomical Region Laterality Modality Body N/A Radiographic Shelli ging 03/20/2012 10:0 9 AM SHANK BURNISHER Narrative 03/20/2012 10:11 AM SHANK BURNISHER IMAGES NOT AVAILABLE IN CLINICAL DESKTOP ? FILM(S) AVAILABLE IN RADIOLOGY DATE OF EXAM: ??Mar 20 2012 10:09AM Acc#: ??[id number] ??EDX 0202 - XR Fluoro <1 Hr. in .O.R. ?? DIAGNOSIS: ??HYDRONEPHROSIS CLINICAL HISTORY: ?? CYSTOSCOPY/STENT PLACEMENT ?? RESULT: Fluoroscopy was provided by the Department of Radiology and no film(s) were taken. ??A radiology diagnostic report is not required. IMPRESSION: ?Fluoroscopy was provided by the Department of Radiology and no film(s) were taken. ??A radiology diagnostic report is not required. WATER TAXI DRIVER: ??KS6 TRANSCRIBE DATE/TIME: ??Mar 20 2012 10:10A RADIOLOGIST: ?INFORMATION SYSTEM RADIOLOGY M.DBelem ??READ ON: ??Mar 20 2012 10:10A ORDERING DR: HUMBLE BRISENO M.D. THIS DOCUMENT HAS BEEN ELECTRONICALLY SIGNED BY: ??INFORMATION SYSTEM RADIOLOGY Benjamin, ?ON: ??Mar 20 2012 10:10A Procedure Note Provider, MD Dawson - 06/21/2016 IMAGES NOT AVAILABLE IN CLINICAL DESKTOP FILM(S) AVAILABLE IN RADIOLOGY DATE OF EXAM: Mar 20 2012 10:09AM Acc#: [id number] EDX 0202 - XR Fluoro <1 Hr. in .O.R. DIAGNOSIS: HYDRONEPHROSIS CLINICAL HISTORY: CYSTOSCOPY/STENT PLACEMENT RESULT: Fluoroscopy was provided by the Department of Radiology and no film(s) were taken. A radiology diagnostic report is not required. IMPRESSION: Fluoroscopy was provided by the Department of Radiology and no film(s) were taken. A radiology diagnostic report is notrequired. WATER TAXI DRIVER: WOO TRANSCRIBE DATE/TIME: Mar 20 2012 10:10A RADIOLOGIST: IN[facility] RADIOLOG[facility] Benjamin READ ON: Mar 20 2012 10:10A ORDERING DR: HUMBLE BRISENO M.D. THIS DOCUMENT HAS BEEN ELECTRONICALLY SIGNED BY: INFORMATION SYSTEM RADIOLOGY Benjamin, ON: Mar 20 201210:10A Historical Provider IMGeorge FLUOROSCOPY PROCEDURE S Final Result * (ABNORMAL) Blood glucose, POC (03/20/2012 9:03 AM SHANK BURNISHER) Glucose, POC, bld 137(H) 70 - 99 mg/dl HISTORICAL RESULTS Blood specimen (specimen) 03/20/2012 9:03 AM SHANK BURNISHER Humble Briseno MD LAB BLOOD ORDERABLES Katheryn l Result HISTORICAL RESULTS * (ABNORMAL) Blood glucose, POC (03/20/2012 6:58 AM SHANK BURNISHER) Glucose, POC, bld 223(H) 70 - 99 mg/dl HISTORICAL RESULTS Blood specimen (specimen) 03/20/2012 6:58 AM SHANK BURNISHER Humble Briseno MD LAB BLOOD ORDERABLES Katheryn l Result Performing Organization Address City/[facility] Co de Phone Number HISTORICAL RESULTS * Blood hematocrit (03/20/2012 6:55 AM SHANK BURNISHER) Hct 38.5 37.0 - 47.0 % HISTORICAL RESULTS Blood specimen (specimen) 03/20/2012 6:55 AM SHANK BURNISHER Humble Briseno MD LAB BLOOD ORDERABLES Katheryn l Result Performing Organization Address [facility] de Phone Number HISTORICAL RESULTS * Blood hemoglobin (03/20/2012 6:55 AM SHANK BURNISHER) Hgb 13.5 12.0 - 15.0 g/dl HISTORICAL RESULTS Blood specimen (specimen) 03/20/2012 6:55 AM SHANK BURNISHER Humble Briseno MD LAB BLOOD ORDERABLES Katheryn l Result Performing Organization Address 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
--- OUTSIDE RECORDS SUMMARY | 2024-03-02 22:19 | XMS_ITS | Encounter Summary ---
Author Organization [facility] Healthcare Address [address] [place] [address] Care Team Providers Care Director Construction Services Name Role Phone Unavailable Primary Care Provider Unavailabl e Encounter Details Date Type Department Care Team (Latest Contact Info) Description 03/03/2012 12:45 PM FLORIST'S DECORATOR - 03/03/2012 3:37 PM FLORIST'S DECORATOR Hospital Encounter [facility] Chris Rodriguez, DO [address] [place] [address] Acute upper respiratory infection; Acute bronchitis Social History Tobacco Use Types Packs/Day Years Used Date Smoking Tobacco: Never Assessed Comments Unknown Sex and Gender Information Value Date Recorded Sex Assigned at Not on file Legal Sex Female 10:55 AM FLORIST'S DECORATOR Gender Identity Not on file Sexual Orientation Not on file documented as of this encounter Last Filed Vital Signs Vital Sign Reading Time Taken Comments Blood Pressure 165/101 03/03/2012 1:00 PM FLORIST'S DECORATOR Pulse 132 03/03/2012 1:00 PM FLORIST'S DECORATOR Temperature 37.5 ??C (99.5 ??F) 03/03/2012 1:00 PM CS T Respiratory Rate - - Oxygen Saturation 98% 03/03/2012 1:00 PM FLORIST'S DECORATOR Inhaled Oxygen Concentration - - Weight 84.4 kg (186 lb) 03/03/2012 1:00 PM FLORIST'S DECORATOR Height 167.6 cm (5' 6 ) 03/03/2012 1:00 PM FLORIST'S DECORATOR Body Mass Index 30.02 03/03/2012 1:00 PM FLORIST'S DECORATOR documented in this encounter Plan of Treatment Not on file documented as of this encounter Procedures Procedure Name Priority Date/Time Associated Diagnosis Comments CBC WITH AUTO DIFFERENTIAL Routine 03/03/2012 1:39 PM FLORIST'S DECORATOR BASIC METABOLIC PANEL Routine 03/03/2012 1:39 PM FLORIST'S DECORATOR URINALYSIS AND REFLEX TO MICROSCOPIC AND CULTURE Routine 03/03/2012 1:15 PM FLORIST'S DECORATOR documented in this encounter Results * (ABNORMAL) CBC with auto differential (03/03/2012 1:39 PM FLORIST'S DECORATOR) [facility] WBC 5.8 4.6 - 10.2 x10 3/ul 03/03/2012 1:48 PM FLORIST'S DECORATOR [employer] HISTORICAL RESULTS RBC 4.26 3.76 - 4.80 x10 6/ul 03/03/2012 1:48 PM FLORIST'S DECORATOR [employer] HISTORICAL RESULTS Hemoglobin 13.0 11.0 - 15.0 g/dl 03/03/2012 1:48 PM FLORIST'S DECORATOR [employer] HISTORICAL RESULTS Hct 37.3 33.0 - 43.0 % 03/03/2012 1:48 PM FLORIST'S DECORATOR [employer] HISTORICAL RESULTS MCV 87.6 80.0 - 97.0 fl 03/03/2012 1:48 PM FLORIST'S DECORATOR [employer] HISTORICAL RESULTS MCH 30.5 27.0 - 31.2 pg 03/03/2012 1:48 PM FLORIST'S DECORATOR [employer] HISTORICAL RESULTS MCHC 34.9 31.8 - 35.4 g/dl 03/03/2012 1:48 PM FLORIST'S DECORATOR [employer] HISTORICAL RESULTS RDW 13.2 11.6 - 14.8 % 03/03/2012 1:48 PM FLORIST'S DECORATOR [employer] HISTORICAL RESULTS Plt Count 217 124 - 400 x10 3/ul 03/03/2012 1:48 PM FLORIST'S DECORATOR [employer] HISTORICAL RESULTS MPV 11.0(H) 7.4 - 10.4 fl 03/03/2012 1:48 PM FLORIST'S DECORATOR [facility] [employer] HISTORICAL RESULTS Differential Method AUTOMATED DIFF --------- -- 03/03/2012 1:48 PM [employer] HISTORICAL RESULTS Neut % 71.9 37.0 - 85.0 % 03/03/2012 1:48 PM FLORIST'S DECORATOR [employer] HISTORICAL RESULTS Immature Gran % 0.2 0.0 - 3.0 % 03/03/2012 1:48 PM FLORIST'S DECORATOR [employer] HISTORICAL RESULTS Lymph % 18.3 5.0 - 45.0 % [place] % 9.0 3.0 - 15.0 % Eos % 0.3 0.0 - 7.0 % Baso % 0.3 0.0 - 2.0 % ABSOLUTE COUNTS ABSOLUTE COUNTS --------- -- Absolute Neuts (auto) 4.1 1.7 - 8.7 x10 3/ul Immature Gran # 0.0 0.0 - 0.3 x10 3/ul Absolute Lymphs (auto) 1.1 0.2 - 4.6 x10 3/ul Absolute Monos (auto) 0.5 0.1 - 1.5 x10 3/ul Absolute Eos (auto) 0.0 0.0 - 0.7 x10 3/ul Absolute Basos (auto) 0.0 0.0 - 0.2 x10 3/ul 03/03/2012 1:39 PM FLORIST'S DECORATOR 03/03/2012 1:39 PM FLORIST'S DECORATOR us Monico MARIE LAB BLOOD ORDERABLES Final Re sult [facility] HISTORICAL RESULTS * (ABNORMAL) Basic metabolic panel (03/03/2012 1:39 PM FLORIST'S DECORATOR) Sodium 134(L) 135 - 145 mmol/L Potassium 4.2 3.3 - 5.1 mmol/L Chloride 97 96 - 108 mmol/L Carbon Dioxide 28 22 - 32 mmol/L Anion Gap 9 Glucose 264(H) 70 - 110 mg/dL BUN 10 6 - 20 mg/dL Creatinine 0.6 0.5 - 1.1 mg/dL Kidney Disease Stage [...] Kidney failure or on dialysis @ Calcium 2.20 2.15 - 2.55 mmol/L 03/03/2012 1:39 PM FLORIST'S DECORATOR 03/03/2012 1:39 PM [facility] us Monico MARIE LAB BLOOD ORDERABLES Final Re sult [facility] HISTORICAL RESULTS * (ABNORMAL) Urinalysis reflex to microscopic and culture (03/03/2012 1:15 PM FLORIST'S DECORATOR) Ur Collection Type CLEAN CATCH Ur Culture Indicated? C&S NOT INDICATED Urine Color STRAW YELLOW Urine Clarity CLEAR CLEAR Urine Glucose (UA) 1000(H) NORMAL mg/dL Urine Bilirubin NEGATIVE NEGATIVE mg/dl Urine Ketones NEGATIVE NEGATIVE mg/dL Ur Specific [place] 1.013 1.005 - 1.025 Urine Blood NEGATIVE NEGATIVE mg/dl Urine pH 5.5 5.0 - 8.0 Urine Protein 30(H) NEGATIVE mg/dL Urine Urobilinogen NORMAL NORMAL mg/dL Urine Nitrite NEGATIVE NEGATIVE Ur Leukocyte Esterase NEGATIVE NEGATIVE [place]/ul Ur Microscopic Review Indicated or Ordered Urine RBC 1 0 - 2 /HPF Urine WBC 3 0 - 2 /HPF Urine Mucus Rare /LPF 03/03/2012 1:46 PM FLORIST'S DECORATOR [facility] HISTORICAL RESULTS Ur Squamous Epith Cells Rare /HPF 03/03/2012 1:46 PM FLORIST'S DECORATOR [facility] HISTORICAL RESULTS 03/03/2012 1:15 PM FLORIST'S DECORATOR 03/03/2012 1:30 PM FLORIST'S DECORATOR Narrative [facility] HISTORICAL RESULTS - 03/03/2012 1:46 PM FLORIST'S DECORATOR Collected By lm ?? [phone] ?? us Monico MARIE LAB MICROBIOLOGY - GENERAL OR DERABLES Final Result [facility] HISTORICAL RESULTS documented in this encounter Visit Diagnoses Diagnosis Acute upper respiratory infection Acute upper respiratory infections of unspecified site Acute bronchitis documented in this encounter
--- OUTSIDE RECORDS SUMMARY | 2024-03-02 22:19 | XMS_ITS | Encounter Summary ---
Author Organization [facility] Healthcare Address [address] [place] [address] Care Team Providers Care Manager Water Name Role Phone Unavailable Primary Care Provider Unavailabl e Encounter Details Date Type Department Care Team (Latest Contact Info) Description 03/05/2012 4:41 PM RISK ADJUSTMENT SPECIALIST - 03/05/2012 6:14 PM RISK ADJUSTMENT SPECIALIST Hospital Encounter [facility] Laura Rossi, PA [address] [place] [address] Myalgia and myositis; Essential hypertension; Type 2 or unspecified type diabetes mellitus; Encounter for long-term (current) use of insulin (HCC); Encounter for long-term (current) use of other medications Social History Tobacco Use Types Packs/Day Years Used Date Smoking Tobacco: Never Assessed Comments Unknown Sex and Gender Information Value Date Recorded Sex Assigned at Not on file Legal Sex Female 10:55 AM RISK ADJUSTMENT SPECIALIST Gender Identity Not on file Sexual Orientation Not on file documented as of this encounter Last Filed Vital Signs Vital Sign Reading Time Taken Comments Blood Pressure 123/79 03/05/2012 4:43 PM RISK ADJUSTMENT SPECIALIST Pulse 91 03/05/2012 4:43 PM RISK ADJUSTMENT SPECIALIST Temperature 38.1 ??C (100.5 ??F) 03/05/2012 4:[address] Respiratory Rate - - Oxygen Saturation 99% 03/05/2012 4:43 PM RISK ADJUSTMENT SPECIALIST Inhaled Oxygen Concentration - - Weight 84.4 kg (186 lb) 03/05/2012 4:43 PM RISK ADJUSTMENT SPECIALIST Height 167.6 cm (5' 6 ) 03/05/2012 4:43 PM RISK ADJUSTMENT SPECIALIST Body Mass Index 30.02 03/05/2012 4:43 PM RISK ADJUSTMENT SPECIALIST documented in this encounter Plan of Treatment Not on file documented as of this encounter Procedures Procedure Name Priority Date/Time Associated Diagnosis Comments XR CHEST PA LATERAL 2 VIEWS Routine 03/05/2012 4:44 PM RISK ADJUSTMENT SPECIALIST documented in this encounter Results * XR Chest Pa Lateral 2 Views (03/05/2012 4:44 PM RISK ADJUSTMENT SPECIALIST) Anatomical Region Laterality Modality Body, Chest N/A Radiographic Shelli ging 03/05/2012 4:44 PM RISK ADJUSTMENT SPECIALIST Impressions 03/05/2012 5:29 PM RISK ADJUSTMENT SPECIALIST ?? No radiographic evidence of an acute cardiopulmonary process. THIS IS AN ELECTRONICALLY VERIFIED REPORT 03/05/2012 5:24 PM: ??Pietro Park M.D. Pietro Park M.D. AT:at 05:24 PM 05:24 PM [EOD] Narrative 03/05/2012 5:29 PM RISK ADJUSTMENT SPECIALIST EXAMINATION: ??PA and Lateral Radiographs of the Chest DATE: ??03/05/2012 at 16:59 COMPARISON: ??07/19/2011 HISTORY: ??Cough TECHNIQUE: ??PA and lateral radiographs of the chest were submitted for review. FINDINGS: ?? Cardiac silhouette is within normal limits. ??The trachea aortic arch demonstrate normal positioning. ??The lungs are normally expanded without evidence of pneumothorax, consolidation, or pleural effusion. ??There are mild degenerative changes in the spine. Procedure Note Provider, MD Dawson - 07/06/2020 EXAMINATION: PA and Lateral Radiographs of the Chest DATE: 03/05/2012 at 16:59 COMPARISON: 07/19/2011 HISTORY: Cough TECHNIQUE: PA and lateral radiographs of the chest were submitted forreview. FINDINGS: Cardiac silhouette is within normal limits. The trachea aortic arch demonstrate normal positioning. The lungs are normally expanded without evidence of pneumothorax, consolidation, or pleural effusion. There aremild degenerative changes in the spine. IMPRESSION: No radiographic evidence of an acute cardiopulmonary process. THIS IS AN ELECTRONICALLY VERIFIED REPORT 03/05/2012 5:24 PM: Pietro Park M.D. Pietro Park M.D. AT:at 05:24 PM 05:24 PM [EOD] Monico MARIE IMG XR PROCEDURES Final Resul t documented in this encounter Visit Diagnoses Diagnosis Myalgia and myositis Unspecified myalgia and myositis Essential hypertension Unspecified essential hypertension Type 2 or unspecified type diabetes mellitus Encounter for long-term (current) use of insulin (HCC) Encounter for long-term (current) use of insulin Encounter for long-term (current) use of other medications documented in this encounter
--- OUTSIDE RECORDS SUMMARY | 2024-03-02 22:21 | XMS_ITS | Encounter Summary ---
Author Organization [facility] Address [address] [place] [address]. [place] [address] [place] [address] Care Team Providers Care Superintendent Quarry Name Role Phone Colton SILVEIRA MD, Abiodun Rushing Primary Care Provider Victoriano Langston MD Unavailable [phone] Reason for Visit * Reason Onset Date Comments Referral 10/10/2023 Encounter Details Date Type Department Care Team (Late st Contact Info) Description 10/10/2023 Telephone [facility] [address] [place] [address] Tutu Farley MD [address] [place] [address] Referral Social History Tobacco Use Types Packs/Day Years Used Date Smoking Tobacco: Never Smokeless Tobacco: Never Alcohol Use Standard Drinks/Week Comments Not Currently 0 (1 standard drink = 0.6 oz pur e alcohol) few times per year [facility] Utilities Answer Date Recorded In the past 12 months has e electric, gas, oil, or water company threatened to shut off services in your home? No 03/06/2023 Humiliation, Afraid, Rape, and Kick questionnair e Answer Date Recorded Within the last year, have y ou been afraid of your partner or ex-partner? No 03/06/2023 Within the last year, have y ou been humiliated or emotionally abused in other ways by your partner or ex-partner? No Within the last year, have y ou been kicked, hit, slapped, or otherwise physically hurt by your partner or ex-partner? No 03/06/2023 Within the last year, have y ou been raped or forced to have any kind of sexual activity by your partner or ex-partner? No 03/06/2023 AUDIT-C Answer Date Recorded Q1: How often do you have a drink containing alcohol? Never 05/05/2022 Q2: How many drinks containi ng alcohol do you have on a typical day when you are drinking? Patient does not drink Q3: How often do you have si x or more drinks on one occasion? Never 05/05/2022 Overall Financial Resource Strain (CARDIA) Answe r Date Recorded How hard is it for you to pa y for the very basics like food, housing, medical care, and heating? Not hard at all 03/06/2023 PHQ-2 Answer Date Recorded Patient Health Questionnaire-2 Score 1 03/05/2023 [facility] - Occupational Stress Questionnaire Answer Date Recorded Do you feel stress - tense, restless, nervous, or anxious, or unable to sleep at night because your mind is troubled all the time - these days? Not at all 03/06/2023 Exercise Vital Sign Answer Date Recorde d On average, how many days pe r week do you engage in moderate to strenuous exercise (like a brisk walk)? 0 days 03/06/2023 On average, how many minutes do you engage in exercise at this level? 0 min 03/06/2023 Hunger Vital Sign Answer Date Recorded Within the past 12 months, y ou worried that your food would run out before you got the money to buy more. Never true 03/06/19 24 Within the past 12 months, t he food you bought just didn't last and you didn't have money to get more. Never true 03/06/2023 PRAPARE - Transportation Answer Date Re corded In the past 12 months, has l ack of transportation kept you from medical appointments or from getting medications? No 02/19 In the past 12 months, has l ack of transportation kept you from meetings, work, or from getting things needed for daily living? No 03/06/2023 Housing Stability Vital Sign Answer Raymon e Recorded In the last 12 months, was t here a time when you were not able to pay the mortgage or rent on time? No 03/06/2023 In the last 12 months, how many places have you lived? 1 03/06/2023 In the last 12 months, was t here a time when you did not have a steady place to sleep or slept in a snf (including now)? No 03/06/2023 Comments No Sex and Gender Information Value Date Recorded Sex Assigned at Female 12/17/2021 2:07 AM CDT Legal Sex Female 2:58 PM CDT Gender Identity Female 12/17/2021 2:07 AM CDT Sexual Orientation Straight 12/17/2021 2: 07 AM CDT documented as of this encounter Functional Status * Are you deaf or do you have serious difficulty hearing Answer Date of Assessment Author Status No 03/06/2023 3:39 PM Teresa Coe RN Active * Are you blind or do you have serious difficulty seeing, even when wearing glasses? Answer Date of Assessment Author Status Yes 03/06/2023 3:39 PM Teresa Coe RN Active * Do you have serious difficulty walking or climbing stairs? Answer Date of Assessment Author Status Yes 03/06/2023 3:39 PM Teresa Coe RN Active * Do you have difficulty dressing or bathing? Answer Date of Assessment Author Status Yes 03/06/2023 3:39 PM Teresa Coe RN Active * Because of a physical, mental, or emotional condition, do you have difficulty doing errands alone such as visiting a doctor's office or shopping? Answer Date of Assessment Author Status Yes 03/06/2023 3:39 PM Teresa Coe RN Active documented as of this encounter Mental Status * Because of a physical, mental, or emotional condition, do you have serious difficulty concentrating, remembering, or making decisions? Answer Entry Date Author Status No 03/06/2023 3:39 PM Teresa Coe RN Active documented in this encounter Progress Notes * Tricia Langston MA - 10/24/2023 1:41 PM CDT Returned call and LVM to call the office with any questions or concerns but unfortunately we are not accepting CASHIER ASSISTANT referrals at the moment. * Marta Holt - 10/24/2023 1:13 PM CDT Pt called back to see about their appointment with please call pt back to schedule.Pt has been waiting two weeks.Please leave pt voicemail if not able to reach. [phone] * Laverne Pemberton LPN - 10/16/2023 2:20 PM CDT Patient returned call to discuss referral appointment. * Adenike Mcneal - 10/11/2023 12:26 PM CDT Caller/Facility/Doctor name: PT Lena Note: Returning call MyChart: N/A Call back/Ext. #: [phone] * Laverne Pemberton LPN - 10/11/2023 12:20 PM CDT Message left for patient to call office to discuss appointment. * Marta Holt - 10/10/2023 11:19 AM CDT Pt called to get referral scheduled for . Please call PT to schedule [phone] documented in this encounter Plan of Treatment Upcoming Encounters Date Type Department Care Team (Late st Contact Info) Description 03/14/2024 11:45 AM HOUSECLEANER FLOOR Office Visit [facility] [phone] Marvin Mckeon MD [address] [facility] [address] [place], [place] [phone] 03/20/2024 11:30 AM HOUSECLEANER FLOOR Office Visit [facility] Medical Group Family Medicine - [place] [address] [place] [phone] Abiodun Segura II, MD [address] [place] [address] documented as of this encounter Goals Goal Patient Goal Type Associated Problems Recent Progress Patient-Stated? Author Family - family caregiver with be involved in care transitions and discharge planning Lifestyle No Natty Cheek, RN documented as of this encounter Visit Diagnoses Not on filedocumented in this encounter Additional Health Concerns Assessment Noted Time PHQ-9 Depression Total Score: 0 03/08/19 22 9:30 AM HOUSECLEANER FLOOR documented as of this encounter Care Teams Superintendent Quarry Relationship Specialty Start Date End Date Abiodun Segura II, MD [address] [place], [place] [address] PCP - General FAMILY PRACTICE 03/09/21 [place] [address] [place] [address] PODIATRY/SURGERY 05/05/22 documented as of this encounter
--- OUTSIDE RECORDS SUMMARY | 2024-03-02 22:21 | XMS_ITS | Encounter Summary ---
Author Organization [facility] Address [address] [place] [address]. [place] [address] [place] [address] Care Team Providers Care Packing Machine Pilot Can Router Name Role Phone Colton SILVEIRA MD, Abiodun Rushing Primary Care Provider Victoriano Langston MD Unavailable [phone] Encounter Details Date Type Department Care Team (Latest Contact Info) Description 01/20/2024 Scan [facility] Scanned, Doc Med Group Social History Tobacco Use Types Packs/Day Years Used Date Smoking Tobacco: Never Smokeless Tobacco: Never Alcohol Use Standard Drinks/Week Comments Not Currently 0 (1 standard drink = 0.6 oz pur e alcohol) few times per year [id number] Literacy Answer Date Recor ded How often do you need to hav e someone help you when you read instructions, pamphlets, or other written material from your doctor or pharmacy? Often 11/29/2023 [facility] Utilities Answer Date Recorded In the past 12 months has [employer], [employer], oil, or water [employer] threatened to shut off services in your home? No 11/29/2023 Humiliation, Afraid, Rape, and Kick questionnair e Answer Date Recorded Within the last year, have y ou been afraid of your partner or ex-partner? No 11/29/2023 Within the last year, have y ou been humiliated or emotionally abused in other ways by your partner or ex-partner? No Within the last year, have y ou been kicked, hit, slapped, or otherwise physically hurt by your partner or ex-partner? No 11/29/2023 Within the last year, have y ou been raped or forced to have any kind of sexual activity by your partner or ex-partner? No 11/29/2023 Social Connection and Isolat ion Panel [NHANES] Answer Date Recorded In a typical week, how many times do you talk on the phone with family, friends, or neighbors? More than three times a week 11/29/2023 How often do you get togethe r with friends or relatives? More than three times a week 11/29/2023 How often do you attend chur ch or scientology services? Never 11/29/2023 Active Member of Clubs or Organizations Not on f ile 11/29/2023 How often do you attend meet ings of the clubs or organizations you belong to? Never 11/29/2023 Are you , , di vorced, , never , or living with a partner? 11/29/2023 AUDIT-C Answer Date Recorded Q1: How often do you have a drink containing alc ohol? 2-4 times a month 11/29/2023 Q2: How many drinks containi ng alcohol do you have on a typical day when you are drinking? 1 or 2 11/29/2023 Q3: How often do you have si x or more drinks on one occasion? Monthly 11/29/2023 Overall Financial Resource Strain (CARDIA) Answe r Date Recorded How hard is it for you to pa y for the very basics like food, housing, medical care, and heating? Not very hard 11/29/2023 PHQ-2 Answer Date Recorded Patient Health Questionnaire-2 Score 1 03/05/2023 [facility] - Occupational Stress Questionnaire Answer Date Recorded Do you feel stress - tense, restless, nervous, or anxious, or unable to sleep at night because your mind is troubled all the time - these days? Not at all 11/29/2023 Exercise Vital Sign Answer Date Recorde d On average, how many days pe r week do you engage in moderate to strenuous exercise (like a brisk walk)? 0 days 11/29/2023 On average, how many minutes do you engage in exercise at this level? 0 min 11/29/2023 Hunger Vital Sign Answer Date Recorded Within the past 12 months, y ou worried that your food would run out before you got the money to buy more. Never true 11/29/19 24 Within the past 12 months, t he food you bought just didn't last and you didn't have money to get more. Never true 11/29/2023 PRAPARE - Transportation Answer Date Re corded In the past 12 months, has l ack of transportation kept you from medical appointments or from getting medications? No 11/19 In the past 12 months, has l ack of transportation kept you from meetings, work, or from getting things needed for daily living? No 11/29/2023 Housing Stability Vital Sign Answer Raymon e [...] place to sleep or slept in a correction (including now)? No 03/06/2023 Housing Stability Vital Sign Answer Raymon e Recorded In the last 12 months, was t here a time when you were not able to pay the mortgage or rent on time? No 11/29/2023 In the past 12 months, how m any times have you moved where you were living? 1 11/29/2023 At any time in the past 12 m [facility], were you homeless or living in a correction (including now)? No 11/29/2023 Comments No Sex and Gender Information Value Date Recorded Sex Assigned at Female 12/17/2021 2:07 AM CDT Legal Sex Female 2:58 PM CDT Gender Identity Female 12/17/2021 2:07 AM CDT Sexual Orientation Straight 12/17/2021 2: 07 AM CDT documented as of this encounter Functional Status * Are you deaf or do you have serious difficulty hearing Answer Date of Assessment Author Status No 11/29/2023 4:33 AM CDT Emelia Jain RN Active * Are you blind or do you have serious difficulty seeing, even when wearing glasses? Answer Date of Assessment Author Status Yes 11/29/2023 4:33 AM Emelia Cisneros RN Active * Do you have serious difficulty walking or climbing stairs? Answer Date of Assessment Author Status Yes 11/29/2023 4:33 AM Emelia Cisneros RN Active * Do you have difficulty dressing or bathing? Answer Date of Assessment Author Status No 11/29/2023 4:33 AM Emelia Cisneros RN Active * Because of a physical, mental, or emotional condition, do you have difficulty doing errands alone such as visiting a doctor's office or shopping? Answer Date of Assessment Author Status Yes 11/29/2023 4:33 AM Emelia Cisneros RN Active documented as of this encounter Mental Status * Because of a physical, mental, or emotional condition, do you have serious difficulty concentrating, remembering, or making decisions? Answer Entry Date Author Status No 11/29/2023 4:33 AM Emelia Cisneros RN Active documented in this encounter Plan of Treatment Upcoming Encounters Date Type Department Care Team (Late st Contact Info) Description 03/14/2024 11:45 AM CHIEF WHARFINGER Office Visit [facility] [phone] Marvin Mckeon MD [facility] [address] [place] [phone] 03/20/2024 11:30 AM CHIEF WHARFINGER Office Visit [facility] Family Medicine - [place] [address] [place] [phone] Abiodun Segura II, MD [address] [place] [address] documented as of this encounter Goals Goal Patient Goal Type Associated Problems Recent Progress Patient-Stated? Author Family - family caregiver with be involved in care transitions and discharge planning Lifestyle Natty Angeles RN documented as of this encounter Visit Diagnoses Not on filedocumented in this encounter Additional Health Concerns Assessment Noted Time PHQ-9 Depression Total Score: 0 03/08/19 22 9:30 AM CHIEF WHARFINGER documented as of this encounter Care Teams Packing Machine Pilot Can Router Relationship Specialty Start Date End Date Abiodun Segura II, MD [address] [place] [address] PCP - General FAMILY PRACTICE 03/09/21 [place] [address] [place] [address] PODIATRY/SURGERY 05/05/22 documented as of this encounter
--- OUTSIDE RECORDS SUMMARY | 2024-03-02 22:21 | XMS_ITS | Encounter Summary ---
Author Organization [facility] Address [address] [place] [address]. [place] [address] [place] [address] Care Team Providers Care Live Ammunition Inspector Name Role Phone Colton SILVEIRA MD, Yasmin Rushing Primary Care Provider Victoriano Langston MD Unavailable [phone] Reason for Visit * Reason Comments TCM Patient presents for hospital follow up for UTI Encounter Details Date Type Department Care Team (Late st Contact Info) Description 12/13/2023 10:30 AM CDT Office Visit [facility] Family Medicine - [place] [address] [place] [phone] Yasmin Valenzuela II, MD [address] [place] [address] TCM (Patient presents for hospital follow up for UTI) Social History Tobacco Use Types Packs/Day Years Used Date Smoking Tobacco: Never Smokeless Tobacco: Never Tobacco Cessation:Counseling Given: No Alcohol Use Standard Drinks/Week Comments Not Currently 0 (1 standard drink = 0.6 oz pur e alcohol) few times per year B1300 Health Literacy Answer Date Recor ded How often do you need to hav e someone help you when you read instructions, pamphlets, or other written material from your doctor or pharmacy? Often 11/29/2023 [facility] Utilities Answer Date Recorded In the past 12 months has [employer], [employer], or [employer] threatened to shut off services in your [...] often do you attend chur ch or hoahaoism services? Never 11/29/2023 Active Member of Clubs [...] Recorded Patient Health Questionnaire-2 Score 1 03/05/2023 [facility] - Occupational [...] place to sleep or slept in a care home (including now)? No 03/06/2023 Housing Stability Vital Sign Answer Raymon e Recorded In the last 12 months, was t here a time when you were not able to pay the mortgage or rent on time? No 11/29/2023 In the past 12 months, how m any times have you moved where you were living? 1 11/29/2023 At any time in the past 12 m [facility], were you homeless or living in a care home (including now)? No 11/29/2023 Comments No Sex and Gender Information Value Date Recorded Sex Assigned at Female 12/17/2021 2:07 AM CDT Legal Sex Female 2:58 PM CDT Gender Identity Female 12/17/2021 2:07 AM CDT Sexual Orientation Straight 12/17/2021 2: 07 AM CDT documented as of this encounter Last Filed Vital Signs Vital Sign Reading Time Taken Comments Blood Pressure 126/85 12/13/2023 10:22 AM CDT Pulse 87 12/13/2023 10:22 AM CDT Temperature 36.6 ??C (97.8 ??F) 12/13/2023 10:22 AM C DT Respiratory Rate - - Oxygen Saturation 99% 12/13/2023 10:22 AM CDT Inhaled Oxygen Concentration - - Weight 88.5 kg (195 lb) 12/13/2023 10:22 AM CDT Height - - Body Mass Index 31.47 11/28/2023 10:23 PM CDT documented in this encounter Functional Status * Are you deaf or do you have serious difficulty hearing Answer Date of Assessment Author Status No 11/29/2023 4:33 AM CDT Emelia Jain RN Active * Are you blind or do you have serious difficulty seeing, even when wearing glasses? Answer Date of Assessment Author Status Yes 11/29/2023 4:33 AM CDT Emelia Jain RN Active * Do you have serious difficulty walking or climbing stairs? Answer Date of Assessment Author Status Yes 11/29/2023 4:33 AM CDT Emelia Jain RN Active * Do you have difficulty dressing or bathing? Answer Date of Assessment Author Status No 11/29/2023 4:33 AM CDT Emelia Jain, RN Active * Because of a physical, mental, or emotional condition, do you have difficulty doing errands alone such as visiting a doctor's office or shopping? Answer Date of Assessment Author Status Yes 11/29/2023 4:33 AM CDT Emelia Jain RN Active documented as of this encounter Mental Status * Because of a physical, mental, or emotional condition, do you have serious difficulty concentrating, remembering, or making decisions? Answer Entry Date Author Status No 11/29/2023 4:33 AM CDT Emelia Jain RN Active documented in this encounter Progress Notes * Yasmin Valenzuela II, MD - 12/13/2023 10:30 AM CDT Images from the original note were not included. [facility] [address] [address] TCM NOTE Encounter Date: 12/13/2023 Chief Complaint: TCM (Patient presents for hospital follow up for UTI) History of Present Illness: 53-year-old female with history of diabetes, hypertension, hyperlipidemia, Charcot foot, left toe amputation, constipation, blindness of right eye, history of gastric ulcer, and history of multiple urinary tract infections who is here for TCM visit after admission for urinary tract infection and right-sided flank pain. Patient is doing well today with no acute complaints and feels like she has recovered well. Patient is also tolerating semaglutide 0.5 mg weekly well for diabetes and is here meghann A1c check. I reviewed the entire discharge summary and reconciled patient's medications today. Please see TCM phone call from December 02 for additional details. Review Of Systems: Positive ROS items as noted in HPI. All other Systems were reviewed and are negative. Patient Active Problem List Diagnosis Hypercholesteremia Hypertension Type 2 diabetes mellitus ([facility]/HCC HHS/HCC) Renal disorder Chronic bilateral low back pain without sciatica Callus of foot Vision decreased Renal stones Charcot foot due to diabetes mellitus (CMS/HCC HHS/HCC) Hot flashes due to menopause Chest pain Diabetic foot infection (CMS/HCC HHS/HCC) Osteomyelitis (CMS/HCC HHS/HCC) Soft tissue infection of foot Necrotic toes (CMS/HCC HHS/HCC) Acquired absence of other left toe(s) ([facility]/HCC HHS/HCC) Atherosclerosis of [place] arteries of extremities with intermittent claudication, bilateral legs (CMS/HCC) Intractable abdominal pain Abdominal pain Intractable vomiting Peptic ulcer Epigastric abdominal pain UTI (urinary tract infection) Class 1 obesity due to excess calories with serious comorbidity and body mass index (BMI) of 32.0 to 32.9 in adult Past Medical History: Diagnosis Date Arthritis Charcot foot due to diabetes mellitus (CMS/HCC HHS/HCC) LEFT FOOT Constipation COVID-19 Diabetes mellitus (CMS/HCC HHS/HCC) Diabetic neuropathy (CMS/HCC HHS/HCC) Gastric ulcer High cholesterol Hypertension Kidney stone 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 UTI (urinary tract infection) Vision decreased blind right eye, poor vision left eye Past Surgical History: Procedure Laterality Date 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 SURGERY HYSTERECTOMY 2004, 2019 hysterectomy, cervical surgery RETINAL DETACHMENT SURGERY Right Family History Problem Relation Name Age of Onset Diabetes Mother Hypertension Mother Heart Attack Father Hypertension Father Stroke Sister Hypertension Sister Breast Cancer Other cousin 49 Social History Socioeconomic History Marital status: Spouse name: Not on file Number of children: Not on file Years of education: Not on file Highest education level: Not on file Occupational History Not on file Tobacco Use Smoking status: Never Smokeless tobacco: Never Vaping Use Vaping status: Never Used Substance and Sexual Activity Alcohol use: Not Currently Comment: few times per year Drug use: No Sexual activity: Not Currently Comment: unknown Other Topics Concern Service Not Asked Blood Transfusions Not Asked Caffeine Concern No Occupational Exposure Not Asked Hobby Hazards Not Asked Sleep Concern Not Asked Stress Concern Not Asked Weight Concern Not Asked Special Diet Not Asked Back Care Not Asked Exercise No Bike Helmet Not Asked Seat Belt Yes Self-Exams Not Asked Social History Narrative lives with and HHC. Pt states she uses cane and w/w PRN. Social Drivers of Health Financial Resource Strain: Low Risk (11/29/2023) Overall Financial Resource Strain (CARDIA) Difficulty of Paying Living Expenses: Not very hard Food Insecurity: No Food Insecurity (11/29/2023) Hunger Vital Sign Worried About Running Out of Food in the Last Year: Never true Ran Out of Food in the Last Year: Never true Transportation Needs: No Transportation Needs (11/29/2023) PRAPARE - Transportation Lack of Transportation (Medical): No Lack of Transportation (Non-Medical): No Physical Activity: Inactive (11/29/2023) Exercise Vital Sign Days of Exercise per Week: 0 days Minutes of Exercise per Session: 0 min Stress: No Stress Concern Present (11/29/2023) [employer] [facility] - Occupational Stress Questionnaire Feeling of Stress : Not at all Social Connections: Moderately Isolated (11/29/2023) Social Connection and Isolation Panel [NHANES] Frequency of Communication with Friends and Family: More than three times a week Frequency of Social Gatherings with Friends and Family: More than three times a week Attends Ep[employer]alian Services: Never Active Member of Clubs or Organizations: Not on file Attends Club or Organization Meetings: Never Marital Status: Intimate Partner Violence: Not At Risk (11/29/2023) Humiliation, Afraid, Rape, and Kick questionnaire Fear of Current or Ex-Partner: No Emotionally Abused: No Physically Abused: No Sexually Abused: No Housing Stability: Low Risk (11/29/2023) Housing Stability Vital Sign Unable to Pay for Housing in the Last Year: No Number of Times Moved in the Last Year: 1 Homeless in the Last Year: No There is no immunization history for the selected administration types on file for this patient. Current Outpatient Medications Medication Sig Dispense Refill amLODIPine (NORVASC) 10 MG tablet Take 1 tablet (10 mg total) by mouth nightly at bedtime. 90 tablet 3 calcium carbonate (TUMS) 500 MG chewable tablet Chew 1 tablet (500 mg total) by mouth 2 (two) timesdaily as needed. 60 tablet 0 cyclobenzaprine (FLEXERIL) 10 MG tablet Take 1 tablet (10 mg total) by mouth 3 (three) times daily as needed for Muscle Spasms. 60 tablet 5 doxycycline hyclate (VIBRAMYCIN) 50 MG capsule Take 1 capsule (50 mg total) by mouth daily. Glucose Blood (ACCU-CHEK TAWANNA PLUS) test strip 1 strip by Other route 2 (two) times daily. Use as instructed 200 strip 3 HUMALOG MIX 75/25 (75-25) 100 UNIT/ML Suspension INJECT 65 UNITS SUBCUTANEOUSLY IN THE MORNING AND 55 IN THE EVENING 40 mL 3 HYDROcodone-acetaminophen (NORCO) 5-325 MG tablet Take 1 tablet by mouth every 4 (four) hours as needed. Insulin Syringe-Needle U-100 (INSULIN SYRINGE 1CC/30GX5/16 ) 30G X 5/16 1 ML Misc Use as directed to inject insulin twice a day. 200 each 3 linaCLOtide (LINZESS) 145 MCG capsule Take 1 capsule (145 mcg total) by mouth every morning before breakfast. Take on empty stomach at least 30 minutes prior to the first meal of the day. Swallow whole. Do not open capsule or chew. 30 capsule 5 lisinopril (PRINIVIL) 20 MG tablet Take 1 tablet (20 mg total) by mouth every evening. Indications:hypertension 90 tablet 3 omeprazole (PRILOSEC) 20 MG capsule Take 1 capsule (20 mg total) by mouth daily as needed. ondansetron (ZOFRAN-ODT) 4 MG disintegrating tablet Take 1 tablet (4 mg total) by mouth every 6 (six) hours as needed for Nausea. 20 tablet 0 oxybutynin (DITROPAN) 5 MG tablet Take 1 tablet (5 mg total) by mouth 3 (three) times daily as needed (pain). semaglutide (OZEMPIC) 1 mg/dose injection (PEN) Inject 1 mg into the skin once a week. Indications:Diabetes 3 mL 5 simvastatin (ZOCOR) 40 MG tablet Take 1 tablet (40 mg total) by mouth nightly at bedtime. 90 tablet3 traMADol (ULTRAM) 50 MG tablet Take 1 tablet (50 mg total) by mouth every 6 (six) hours as needed. tretinoin (RETIN-A) 0.05 % cream Apply topically nightly at bedtime. Tretinoin, Facial Wrinkles, (TRETINOIN, EMOLLIENT,) 0.05 % Cream Apply 1 Application topically nightly at bedtime. triamcinolone (KENALOG) 0.1 % cream Apply topically 2 (two) times daily. 453.6 g 1 No current facility-administered medications for this visit. Allergies Allergen Reactions Ceftriaxone Rash Fish Oil Unknown Amoxicillin Rash Penicillins Rash Objective: Filed Vitals: 12/13/23 1022 BP: 126/85 Pulse: 87 Temp: 97.8 ??F (36.6 ??C) TempSrc: Temporal SpO2: 99% Weight: 88.5 kg (195 lb) Nursing note reviewed. Physical Exam Vitals and nursing note reviewed. Constitutional: General: She is not in acute distress. Appearance: Normal appearance. She is obese. She is not ill-appearing. HENT: Head: Normocephalic and atraumatic. Nose: Nose normal. Eyes: Pupils: Pupils are equal, round, and reactive to light. Cardiovascular: Rate and Rhythm: Normal rate and regular rhythm. Heart sounds: Normal heart sounds. Pulmonary: Effort: Pulmonary effort is normal. Breath sounds: Normal breath sounds. Musculoskeletal: Cervical back: Normal range of motion and neck supple. No rigidity. Comments: Foot exam is unchanged. Skin: General: Skin is warm and dry. Neurological: Mental Status: She is alert and oriented to person, place, and time. Psychiatric: Mood and Affect: Mood normal. Behavior: Behavior normal. Thought Content: Thought content normal. Judgment: Judgment normal. Labs: Results for orders placed or performed in visit on 12/13/23 A1C (BACK OFFICE) Result Value Ref Range HGB A1C 8.2 % Counseling The patient and patient's family was counseled regarding instructions for management, patient and family education and importance of compliance with treatment. Assessment: 1. Primary hypertension CBC W/DIFF AUTOMATED COMPREHENSIVE METABOLIC PANEL 2. Type 2 diabetes mellitus with diabetic neuropathic arthropathy, with long- term current use of insulin ([facility]) semaglutide (OZEMPIC) 1 mg/dose injection (PEN) HEMOGLOBIN, GLYCOSYLATED A1C (BACK OFFICE) COLLECT.CAPILLARY (FNGR,HEEL,EAR) 3. Charcot foot due to diabetes mellitus ([facility]) 4. Hypercholesteremia LIPID PANEL 5. Acquired absence of other left toe(s) ([facility]) 6. Atherosclerosis of [place] arteries of extremities with intermittent claudication, bilateral legs([facility]) 7. Class 1 obesity due to excess calories with serious comorbidity and body mass index (BMI) of 32.0 to 32.9 in adult Plan: Orders Placed This Encounter Medications tretinoin (RETIN-A) 0.05 % cream semaglutide (OZEMPIC) 1 mg/dose injection (PEN) 1. Primary hypertension (Primary) Patient's blood pressure is at goal. Patient will continue amlodipine 10 mg daily, lisinopril 20 mgat bedtime and we will recheck blood pressure at follow- up in 3 months. - CBC W/DIFF AUTOMATED; Future - COMPREHENSIVE METABOLIC PANEL; Future 2. Type 2 diabetes mellitus with diabetic neuropathic arthropathy, with long- term current use of insulin ([facility]) Patient's hemoglobin A1c is markedly improved. Patient is tolerating Ozempic well. We will increasedose to 1 mg weekly and plan to check hemoglobin A1c prior to follow-up in 3 months. We will try toconsolidate her insulin and medication regiment if her hemoglobin A1c continues to improve on GLP-1inhibitors. - semaglutide (OZEMPIC) 1 mg/dose injection (PEN); Inject 1 mg into the skin once a week. Indications: Diabetes Dispense: 3 mL; Refill: 5 - HEMOGLOBIN, GLYCOSYLATED; Future - A1C (BACK OFFICE) - COLLECT.CAPILLARY (FNGR,HEEL,EAR) 3. Charcot foot due to diabetes mellitus ([facility]) Patient will continue podiatry care for her Charcot foot. 4. Hypercholesteremia Patient is tolerating simvastatin 40 mg daily well and her last LDL is at goal. We will recheck lipid panel prior to follow-up to reassess. - LIPID PANEL; Future 5. Acquired absence of other left toe(s) (CMS/HCC HHS/HCC) Patient is able to ambulate well and has no ulcers at this time. 6. Atherosclerosis of [place] arteries of extremities with intermittent claudication, bilateral legs(CMS/HCC) We will continue risk factor control the patient will continue to ambulate as tolerated to help maintain blood flow. 7. Class 1 obesity due to excess calories with serious comorbidity and body mass index (BMI) of 32.0 to 32.9 in adult Patient is aware that obesity contributes to diabetes, hypertension, dyslipidemia. Patient is pleased with her progress on her diet and is using GLP- 1 inhibitor as adjunct therapy for weight loss. I personally spent a total of 42 minutes on the day of the encounter. This includes [id number] and [id number] time I provided on the day of the encounter & excludes time spent performing separately reportable services. Medications Discontinued During This Encounter Medication Reason semaglutide (OZEMPIC) 2 MG/3ML injection (PEN) Dose adjustment YASMIN VALENZUELA MD 12/13/2023 Portions of this note were dictated using Verivue speech recognition software. Occasional wrong wordor sound-alike substitutions may have occurred due to the inherent limitations of voice recognition software. Please read the chart carefully and recognize, using context, where the substitutions may have occurred. documented in this encounter Plan of Treatment Upcoming Encounters Date Type Department Care Team (Late st Contact Info) Description 03/14/2024 11:45 AM DRY HOUSE WHEELER Office Visit [facility]-[address] [phone] Marvin Mckeon MD [facility] [address] [place] [address] 03/20/2024 11:30 AM DRY HOUSE WHEELER Office Visit [facility] Family Medicine - [address] [phone] Yasmin Valenzuela II, MD [address] [place], [place] [id number] Scheduled Orders Name Type Priority Associated Diagnoses Orde r Schedule HEMOGLOBIN, GLYCOSYLATED Lab Routine Type 2 diabetes mellitus with diabetic neuropathic arthropathy, with long-term current use of insulin ([facility]) Expected: 12/13/2023 (Approximate), Expires: 12/12/2024 CBC W/DIFF AUTOMATED Lab Routine Primary hypertension Expected: 12/13/2023 (Approximate), Expires: 12/12/2024 COMPREHENSIVE METABOLIC PANEL Lab Routine Primary hypertension Expected: 12/13/2023 (Approximate), Expires: 12/12/2024 LIPID PANEL Lab Routine Hypercholesteremia Expected: 12/13/2023 (Approximate), Expires: 12/12/2024 documented as of this encounter Goals Goal Patient Goal Type Associated Problems Recent Progress Patient-Stated? Author Family - family caregiver with be involved in care transitions and discharge planning Lifestyle No Natty Cheek, RN documented as of this encounter Procedures Procedure Name Priority Date/Time Associated Diagnosis Comments COLLECT.CAPILLARY (FNGR,HEEL,EAR) Routine 12/13/2023 4:06 PM CDT Type 2 diabetes mellitus with diabetic neuropathic arthropathy, with long-term current use of insulin ([facility]) HEMOGLOBIN, GLYCOSYLATED Routine 12/13/2023 Type 2 diabetes mellitus with diabetic neuropathic arthropathy, with long-term current use of insulin ([facility]) documented in this encounter Results * A1C (BACK OFFICE) (12/13/2023) HGB A1C 8.2 % [facility] 12/13/2023 Yasmin Valenzuela II, MD LABORATORY Final R esult [facility] [facility] [address] [place] [address], [place] [phone] documented in this encounter Visit Diagnoses Diagnosis Primary hypertension- Primary Unspecified essential hypertension Type 2 diabetes mellitus with diabetic neuropathic arthropathy, with long-term current use of insulin ([facility]) Charcot foot due to diabetes mellitus ([facility]) Type II or unspecified type diabetes mellitus with neurological manifestations, not stated as uncontrolled Hypercholesteremia Pure hypercholesterolemia Acquired absence of other left toe(s) ([facility]) Atherosclerosis of [place] arteries of extremities with intermittent claudication, bilateral legs ([facility]) Class 1 obesity due to excess calories with serious comorbidity and body mass index (BMI) of 32.0 to 32.9 in adult documented in this encounter Additional Health Concerns Assessment Noted Time PHQ-9 Depression Total Score: 0 03/08/19 22 9:30 AM DRY HOUSE WHEELER documented as of this encounter Care Teams Live Ammunition Inspector Relationship Specialty Start Date End Date Yasmin Valenzuela II, MD [address] [place] [address] PCP - General FAMILY PRACTICE 03/09/21 [place] [address] [place] [address] PODIATRY/SURGERY 05/05/22 documented as of this encounter
--- OUTSIDE RECORDS SUMMARY | 2024-03-02 22:21 | XMS_ITS | Encounter Summary ---
Author Organization [facility] Address [address] [place] [address]. [place] [address] [place] [address] Care Team Providers Care Head Of Conservation Name Role Phone Colton SILVEIRA MD, Yasmin Rushing Primary Care Provider Victoriano Langston MD Unavailable [phone] Reason for Referral * Imaging (Emergency) - New Request Specialty Diagnoses / Procedures Referred By Contxavier t Referred To Contact RADIOLOGY Procedures CT ABD+PEL WO CON Enrrique Jara MD [address] [place] [address] Phone: tel: fax: Referral ID Status Reason Start Date Expiration Date V isits Requested Visits Authorized [id number] New Request 01/03/2024 01/02/2025 1 1 INSTRUMENT REPAIRER Reason for Visit * Reason Comments Abdominal Pain Constipation Encounter Details Date Type Department Care Team (Late st Contact Info) Description 01/03/2024 3:16 AM BAND INSTRUMENT REPAIRER - 01/03/2024 6:23 AM BAND INSTRUMENT REPAIRER Emergency [facility] [place] [address] Enrrique Jara MD [address] [place] [address] Abdominal Pain; Constipation Discharge Disposition: Home or Self Care (Routine Discharge) Social History Tobacco Use Types Packs/Day Years [...] from your doctor or pharmacy? Often 11/29/[address] [facility] Utilities Answer Date Recorded In the past 12 months has e [employer], gas, oil, or water [employer] threatened to shut off services in your [...] often do you attend chur ch or gnosticist services? Never 11/29/2023 Active Member of Clubs [...] Recorded Patient Health Questionnaire-2 Score 1 03/05/2023 [facility] - Occupational Stress [...] in a snf (including now)? No 03/06/2023 Housing Stability Vital Sign Answer Raymon e Recorded In the last 12 months, was t here a time when you were not able to pay the mortgage or rent on time? No 11/29/2023 In the past 12 months, how m any times have you moved where you were living? 1 11/29/2023 At any time in the past 12 m [facility], were you homeless or living in a snf (including now)? No 11/29/2023 Comments No Sex and Gender Information Value Date Recorded Sex Assigned at Female 12/17/2021 2:07 AM CDT Legal Sex Female 2:58 PM CDT Gender Identity Female 12/17/2021 2:07 AM CDT Sexual Orientation Straight 12/17/2021 2: 07 AM CDT documented as of this encounter Last Filed Vital Signs Vital Sign Reading Time Taken Comments Blood Pressure 167/85 01/03/2024 4:16 AM BAND INSTRUMENT REPAIRER Pulse 99 01/03/2024 4:16 AM BAND INSTRUMENT REPAIRER Temperature 36.5 ??C (97.7 ??F) 01/03/2024 3:20 AM CS T Respiratory Rate 18 01/03/2024 3:20 AM BAND INSTRUMENT REPAIRER Oxygen Saturation 100% 01/03/2024 4:16 AM BAND INSTRUMENT REPAIRER Inhaled Oxygen Concentration - - Weight 86.1 kg (189 lb 13.1 oz) 01/03/2024 3:20 AM BAND INSTRUMENT REPAIRER Height 167.6 cm (5' 6 ) 01/03/2024 3:20 AM BAND INSTRUMENT REPAIRER Body Mass Index 30.64 01/03/2024 3:20 AM BAND INSTRUMENT REPAIRER documented in this encounter Functional Status * [...] Cisneros RN Active documented in this encounter Discharge Instructions * Discharge Instructions* Enrrique Jara MD - 01/03/2024 4:50 AM BAND INSTRUMENT REPAIRER Constipation Remedy or The Bomb Nurses in the nursing homes sear by this remedy and have nicknamed it ???The Bomb?? because of itsexplosive effect. ???The Bomb?? is not completely natural because of one of its ingredients is Milk of Magnesia. However, it is a constipation remedy you can make at home that has been proven to be very effective. Here is how to make ???The Bomb?? - 1 cup of prune juice - 1 cup of coffee - 30 ml or 2 tablespoons of Milk of Magnesia Mix these ingredients together, warm the mixture in the microwave for 45 sec. Drink it up or within5 minutes. It usually works in 1-3 hours. The are some ways to help prevent constipation: - Drink plenty of water, at least 8 glasses everyday. - Eat a well balanced diet, with lots of fresh fruit and vegetables, and fiber. - Walking after meals helps the process. Walk at least 20 min each day, it???s a good exercise and helps relieve constipation. - Get good sleep at night, at least 6-8 hours. - Avoid greasy, fried and sugary foods. - Stress and anxiety can cause constipation. Regular exercise, a warm bath, soft music, prayer and meditation are some of the ways to help combat stres INSTRUMENT REPAIRER * Attachments The following attachments cannot be sent through Care Everywhere. * Constipation Discharge Instructions, Adult (Cuban) documented in this encounter Medications at Time of Discharge amLODIPine (NORVASC) 10 MG tabletIndications:H ypertension, unspecified type Take 1 tablet (10 mg total) by mouth nightly at bedtime. 90 tablet 3 4 calcium carbonate (TUMS) 500 MG chewable tablet Chew 1 tablet (500 mg total) by mouth 2 (two) times daily as needed. 60 tablet 3 cyclobenzaprine (FLEXERIL) 10 MG tabletIndications:M uscle spasm Take 1 tablet (10 mg total) by mouth 3 (three) times daily as needed for Muscle Spasms. 60 tablet 5 4 doxycycline hyclate (VIBRAMYCIN) 50 MG capsule Take 1 capsule (50 mg total) by mouth daily. 4 HYDROcodone-acetami nophen (NORCO) 5-325 MG tablet Take 1 tablet by mouth every 4 (four) hours as needed. 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 200 each 3 4 ivermectin (STROMECTOL) 3 MG Tab tablet 4 linaCLOtide (LINZESS) 145 MCG capsuleIndications: Chronic idiopathic constipation Take 1 capsule (145 mcg total) by mouth every morning before breakfast. Take on empty stomach at least 30 minutes prior to the first meal of the day. Swallow whole. Do not open capsule or chew. 30 capsule 5 4 lisinopril (PRINIVIL) 20 MG tabletIndications:h ypertension Take 1 tablet (20 mg total) by mouth every evening. Indications: hypertension 90 tablet 3 4 06/15/19 25 omeprazole (PRILOSEC) 20 MG capsule Take 1 capsule (20 mg total) by mouth daily as needed. ondansetron (ZOFRAN-ODT) 4 MG disintegrating tablet Take 1 tablet (4 mg total) by mouth every 6 (six) hours as needed for Nausea. 20 tablet 3 oxybutynin (DITROPAN) 5 MG tablet Take 1 tablet (5 mg total) by mouth 3 (three) times daily as needed (pain). 3 simvastatin (ZOCOR) 40 MG tabletIndications:H ypercholesteremia Take 1 tablet (40 mg total) by mouth nightly at bedtime. 90 tablet 3 4 traMADol (ULTRAM) 50 MG tablet Take 1 tablet (50 mg total) by mouth every 6 (six) hours as needed. 4 tretinoin (RETIN-A) 0.05 % cream Apply topically nightly at bedtime. 4 Tretinoin, Facial Wrinkles, (TRETINOIN, EMOLLIENT,) 0.05 % Cream Apply 1 Application topically nightly at bedtime. triamcinolone (KENALOG) 0.1 % creamIndications:Al lergic drug rash Apply topically 2 (two) times daily. 453.6 g 1 4 Glucose Blood (ACCU-CHEK TAWANNA PLUS) test stripIndications:Ty pe 2 diabetes mellitus with diabetic neuropathic arthropathy, with long-term current use of insulin ([facility]/HCC H[facility]/HCC) 1 strip by Other route 2 (two) times daily. Use as instructed 200 strip 3 3 02/26/19 25 HUMALOG MIX 75/25 (75-25) 100 UNIT/ML SuspensionIndicatio ns:Type 2 diabetes mellitus with retinopathy, with long-term current use of insulin, macular edema presence unspecified, unspecified laterality, unspecified retinopathy severity ([facility]/HCC HHS/HCC) INJECT 65 UNITS SUBCUTANEOUSLY IN THE MORNING AND 55 IN THE EVENING 40 mL 3 4 01/22/20 24 semaglutide (OZEMPIC) 1 mg/dose injection (PEN)Indications:Di abetes Mellitus Inject 1 mg into the skin once a week. Indications: Diabetes 3 mL 5 4 02/07/20 24 documented as of this encounter ED Notes * Tomeka Freire RN - 01/03/2024 6:22 AM CST Pt had medium sized BM after enema. Discharge instructions reviewed with pt, verbalized understanding. Pt wheeled out by staff. INSTRUMENT REPAIRER * Enrrique Jara MD - 01/03/2024 3:30 AM CST [place], [place] EMERGENCY DEPARTMENT ENCOUNTER Chief Complaint Chief Complaint Patient presents with Abdominal Pain Constipation History of Present Illness Provider at Bedside None Lena Jennifer Mcneal is a 29-idfv-ib[age]-year-old female with a PMH of arthritis, constipation, DM, diabetic neuropathy, gastric ulcer, HTN, renal disorder and UTI presents to the ED by EMS from home for evaluation of constipation x 1 week with associated lower abdominal pain. She reports minimal gas passing. Patient reports taking laxatives and tried an enema last night with no improvement. No fever/chills or nausea/vomiting. No other complaints at this time. Medical History ALLERGIES: Review of patient's allergies indicates: Allergen Reactions Ceftriaxone Rash Fish Oil Unknown Amoxicillin Rash Penicillins Rash MEDICATIONS: Prior to Admission medications Medication Sig Start Date End Date Taking? Authorizing Provider amLODIPine (NORVASC) 10 MG tablet Take 1 tablet (10 mg total) by mouth nightly at bedtime. 06/15/23 Yasmin Segura II, MD calcium carbonate (TUMS) 500 MG chewable tablet Chew 1 tablet (500 mg total) by mouth 2 (two) timesdaily as needed. 11/11/22 Ysabel Perkins MD cyclobenzaprine (FLEXERIL) 10 MG tablet Take 1 tablet (10 mg total) by mouth 3 (three) times daily as needed for Muscle Spasms. 06/15/23 Yasmin Segura II, MD doxycycline hyclate (VIBRAMYCIN) 50 MG capsule Take 1 capsule (50 mg total) by mouth daily. 10/26/23 Default History Genericprovider Glucose Blood (ACCU-CHEK TAWANNA PLUS) test strip 1 strip by Other route 2 (two) times daily. Use as instructed 12/05/22 Yasmin Segura II, MD HUMALOG MIX 75/25 (75-25) 100 UNIT/ML Suspension INJECT 65 UNITS SUBCUTANEOUSLY IN THE MORNING AND 55 IN THE EVENING 07/26/23 Joel Rader MD HYDROcodone-acetaminophen (NORCO) 5-325 MG tablet Take 1 tablet by mouth every 4 (four) hours as needed. 07/27/23 Default History Genericprovider Insulin Syringe-Needle U-100 (INSULIN SYRINGE 1CC/30G ) 30G X 07/04 1 ML Misc Use as directed to inject insulin twice a day. 03/09/23 Yasmin Segura II, MD linaCLOtide (LINZESS) 145 MCG capsule Take 1 capsule (145 mcg total) by mouth every morning before breakfast. Take on empty stomach at least 30 minutes prior to the first meal of the day. Swallow whole. Do not open capsule or chew. 06/15/23 Yasmin Segura II, MD lisinopril (PRINIVIL) 20 MG tablet Take 1 tablet (20 mg total) by mouth every evening. Indications:hypertension 06/15/23 06/14/24 Yasmin Segura II, MD omeprazole (PRILOSEC) 20 MG capsule Take 1 capsule (20 mg total) by mouth daily as needed. Default History Genericprovider ondansetron (ZOFRAN-ODT) 4 MG disintegrating tablet Take 1 tablet (4 mg total) by mouth every 6 (six) hours as needed for Nausea. 11/11/22 Ysabel Perkins MD oxybutynin (DITROPAN) 5 MG tablet Take 1 tablet (5 mg total) by mouth 3 (three) times daily as needed (pain). 10/20/22 Default History Genericprovider semaglutide (OZEMPIC) 1 mg/dose injection (PEN) Inject 1 mg into the skin once a week. Indications:Diabetes 12/13/23 Yasmin Segura II, MD simvastatin (ZOCOR) 40 MG tablet Take 1 tablet (40 mg total) by mouth nightly at bedtime. 06/15/23 Yasmin Segura II, MD traMADol (ULTRAM) 50 MG tablet Take 1 tablet (50 mg total) by mouth every 6 (six) hours as needed. 04/25/23 Default History Genericprovider tretinoin (RETIN-A) 0.05 % cream Apply topically nightly at bedtime. 11/23/23 Default History Genericprovider Tretinoin, Facial Wrinkles, (TRETINOIN, EMOLLIENT,) 0.05 % Cream Apply 1 Application topically nightly at bedtime. Default History Genericprovider triamcinolone (KENALOG) 0.1 % cream Apply topically 2 (two) times daily. 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 UTI (urinary tract infection) Vision decreased blind right eye, poor vision left eye PAST SURGICAL HISTORY: Past Surgical History: Procedure Laterality Date 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 Respiratory: Negative for shortness of breath. Cardiovascular: Negative for chest pain. Gastrointestinal: Positive for abdominal pain and constipation. Negative for nausea and vomiting. See HPI for further details. All systems negative except as marked. Physical Exam Filed Vitals: 01/03/24 0320 01/03/24 0416 BP: (!) 180/121 (!) 167/85 Pulse: (!) 102 99 Resp: 18 Temp: 97.7 ??F (36.5 ??C) SpO2: 98% 100% Weight: 86.1 kg (189 lb 13.1 oz) Height: 1.676 m (5' 6 ) Physical Exam Vitals and nursing note reviewed. Constitutional: Appearance: She is well-developed. HENT: Head: Normocephalic and atraumatic. Eyes: Conjunctiva/sclera: Conjunctivae normal. Cardiovascular: Rate and Rhythm: Regular rhythm. Tachycardia present. Pulmonary: Effort: Pulmonary effort is normal. Breath sounds: Normal breath sounds. No stridor. Abdominal: General: Bowel sounds are normal. Palpations: Abdomen is soft. Tenderness: There is abdominal tenderness. Comments: Lower abdominal tenderness on palpation Musculoskeletal: General: No deformity. Cervical back: Neck supple. Skin: General: Skin is warm and dry. Neurological: Mental Status: She is alert and oriented to person, place, and time. Diagnostic Studies / Procedures ELECTROCARDIOGRAMS: No results found for this visit on 01/03/24. LABORATORY STUDIES: Results for orders placed or performed during the hospital encounter of 01/03/24 CBC W/DIFF AUTOMATED Result Value Ref Range WBC 8.92 4.5 - 11.0 x10'3/uL RBC 4.40 4.20 - 5.40 x10'6/uL HGB 13.1 12.0 - 16.0 G/DL HCT 39.3 38.0 - 48.0 % MCV 89.3 81.0 - 99.0 FL MCH 29.8 27.0 - 31.0 PG MCHC 33.3 32.0 - 36.0 G/DL RDW 13.1 11.5 - 14.5 % PLT 300 130 - 400 x10'3/uL MPV 11.0 9.3 - 12.2 FL DIFFERENTIAL TYPE AUTOMATED DIFFERENTIAL NEUTROPHILS % 69.9 % LYMPHOCYTES % 25.1 % MONOCYTES % 3.7 % EOSINOPHILS 0.4 % BASOPHILS 0.7 % IMMATURE GRANS % 0.2 % ABS. NEUTROPHILS 6.23 1.80 - 7.70 x10'3/uL ABS. LYMPHOCYTES 2.24 1.00 - 4.80 x10'3/uL ABS. MONOCYTES 0.33 0.24 - 0.86 x10'3/uL ABS. EOSINOPHILS 0.04 0.04 - 0.36 x10'3/uL ABS. BASOPHILS 0.06 0.01 - 0.08 x10'3/uL ABS. IMMATURE GRANULOCYTES 0.02 0.00 - 0.49 x10'3/uL COMPREHENSIVE METABOLIC PANEL Result Value Ref Range GLUCOSE 223 (H) 70 - 99 MG/DL BUN 23 (H) 7 - 18 MG/DL CREATININE S/P/B 1.24 (H) 0.55 - 1.02 MG/DL SODIUM S/P/B 138 136 - 145 MMOL/L POTASSIUM S/P/B 3.6 3.5 - 5.1 MMOL/L CHLORIDE S/P/B 105 97 - 115 MMOL/L CO2 24.8 21 - 32 MMOL/L CALCIUM S/P/B 10.1 8.5 - 10.1 MG/DL BILIRUBIN TOTAL S/P/B 0.4 0.2 - 1.2 MG/DL TOTAL PROTEIN S/P/B 9.2 (H) 6.4 - 8.2 G/DL ALBUMIN S/P/B 3.7 3.4 - 5.0 G/DL AST 16 15 - 37 U/L ALT 20 14 - 55 U/L ALKALINE PHOSPHATASE S/P/B 159 (H) 50 - 136 U/L ANION GAP 8.2 2 - 10 MMOL/L BUN CREATININE RATIO 18.5 6 - 26 A/G RATIO 0.7 (L) 1.0 - 2.0 RATIO GFR ESTIMATE 52 (L) >90 ML/MIN/1.[address] ABD+PEL WO CON Final Result by User, [id number] (01/02 5602) [place] [address] Examination: CT abdomen and pelvis without IV contrast. Clinical Information: Abdominal pain. Comparison: CT 11/29/2023. Technique: IV contrast: None Oral contrast: None. Technical comments: Standard technique. Dose reduction: This CT exam was performed using one or more of the following dose reduction techniques: Automated exposure control, adjustment of the mA and/or kV according to patient size, and/or use of iterative reconstruction technique. Findings: LOWER CHEST Heart is normal in size. Lung bases are clear. No pleural or pericardial effusions. UPPER ABDOMEN Liver and bile ducts: Normal in size and contour. No biliary dilatation. Gallbladder: Stones are noted within the gallbladder. No gallbladder wall thickening or pericholecystic fluid. Pancreas: Unremarkable. Spleen: Negative. RETROPERITONEUM Adrenals: Negative. Kidneys: Redemonstrated findings of chronic right hydronephrosis, again with findings suggestive of chronic UPJ obstruction. Nonobstructing bilateral renal stones are again noted. Lymph nodes: No lymphadenopathy in the abdomen or pelvis. BOWEL AND PERITONEUM Bowel: Normal in caliber and wall thickness. The appendix is normal. Free air or fluid: None. VASCULATURE The abdominal aorta is normal in caliber. PELVIS No abnormality. BONES/SOFT TISSUES No significant lesion. Impression: 1. 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 This appears similar to prior. 2. Redemonstrated bilateral nonobstructing renal stones. 3. Uncomplicated cholelithiasis. Ordered By: ENRRIQUE JARA Interpreted By: Lex Webb MD, 01/03/2024 4:33 AM ED Course / Medical Decision Making Medical Decision Making DD: constipation, bowel obstruction Amount and/or Complexity of Data Reviewed External Data Reviewed: notes. Details: Reviewed discharge summary from 12/02/23 - UTI Labs: ordered. Decision-making details documented in ED Course. Radiology: ordered. Decision-making details documented in ED Course. Discussion of management or test interpretation with external provider(s): Discussed details and plan with patient. Pulse Ox Interpretation: Saturation: 98 (%) Oxygen Delivery: room air Interpretation: No acute hypoxia at this time. Rhythm strip interpretation: Rhythm sinus rate 102. No ectopy. Data reviewed: All current, pertinent and timely studies (laboratory, imaging, and procedures) wereordered and results reviewed by Enrrique Jara MD unless otherwise noted. Triage notes and available nursing notes reviewed. Previous medical record reviewed when available. Repeat vital signs reviewed. Medications ondansetron (ZOFRAN) injection 4 mg (4 mg Intravenous Given 01/03/24414) morphine injection 4 mg (4 mg Intravenous Given 01/03/24413) Clinical Impression Constipation (Primary) Current Discharge Medication List Disposition: Discharge Follow-Up: YASMIN SEGURA MD I, Mary Ann Rosas, acting as a scribe, am personally taking down the notes in the presence of Enrrique Jara MD. Take no action on this note until reviewed and authenticated by the physician. Enrrique Jara MD 01/03/24 0450 INSTRUMENT REPAIRER * Ashanti Bright RN - 01/03/2024 3:24 AM CST Patient presents via EMS with abdominal pain that she is rating at a 9/10. Patient states that she has been constipated for 5 days. Patient states that she has been taking laxatives and tried an enema on herself tonight with no success. INSTRUMENT REPAIRER * Ashanti Bright RN - 01/03/2024 3:16 AM CST Bed: 15 Expected date: Expected time: Means of arrival: Comments: 1244 INSTRUMENT REPAIRER documented in this encounter Plan of Treatment Upcoming Encounters Date Type Department Care Team (Late st Contact Info) Description 03/14/2024 11:45 AM BAND INSTRUMENT REPAIRER Office Visit [facility] [phone] Marvin Mckeon MD [facility] [address] [place] [address] 03/20/2024 11:30 AM BAND INSTRUMENT REPAIRER Office Visit [facility] Family [facility] - [place] [address] [place] [id number] Yasmin Segura II, MD [address] [place], [place] [id number] documented as of this encounter Goals Goal Patient Goal Type Associated Problems Recent Progress Patient-Stated? Author Family - family caregiver with be involved in care transitions and discharge planning Lifestyle No Natty Cheek RN documented as of this encounter Procedures Procedure Name Priority Date/Time Associated Diagnosis Comments CT ABD+PEL WO CON STAT 01/03/2024 4:3 2 AM BAND INSTRUMENT REPAIRER COMPREHENSIVE METABOLIC PANEL STAT 01/03/2024 3:51 AM BAND INSTRUMENT REPAIRER CBC W/DIFF AUTOMATED STAT 01/03/2024 3:51 AM BAND INSTRUMENT REPAIRER documented in this encounter Results * CT ABD+PEL WO CON (01/03/2024 4:32 AM BAND INSTRUMENT REPAIRER) Anatomical Region Laterality Modality Abdomen Computed Tomogra phy 01/03/2024 4:33 AM BAND INSTRUMENT REPAIRER Impressions 01/03/2024 4:43 AM BAND INSTRUMENT REPAIRER Impression: 1. 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 This appears similar to prior. 2. Redemonstrated bilateral nonobstructing renal stones. 3. Uncomplicated cholelithiasis. Ordered By: ENRRIQUE JARA Interpreted By: Lex Webb MD, 01/03/2024 4:33 AM Narrative 01/03/2024 4:43 AM BAND INSTRUMENT REPAIRER [address] [address] Examination: CT abdomen and pelvis without IV contrast. Clinical Information: Abdominal pain. Comparison: CT 11/29/2023. Technique: IV contrast: None Oral contrast: None. Technical comments: Standard technique. Dose reduction: This CT exam was performed using one or more of the following dose reduction techniques: Automated exposure control, adjustment of the mA and/or kV according to patient size, and/or use of iterative reconstruction technique. Findings: LOWER CHEST Heart is normal in size. Lung bases are clear. No pleural or pericardial effusions. UPPER ABDOMEN Liver and bile ducts: Normal in size and contour. No biliary dilatation. Gallbladder: Stones are noted within the gallbladder. No gallbladder wall thickening or pericholecystic fluid. Pancreas: Unremarkable. Spleen: Negative. RETROPERITONEUM Adrenals: Negative. Kidneys: Redemonstrated findings of chronic right hydronephrosis, again with findings suggestive of chronic UPJ obstruction. Nonobstructing bilateral renal stones are again noted. Lymph nodes: No lymphadenopathy in the abdomen or pelvis. BOWEL AND PERITONEUM Bowel: Normal in caliber and wall thickness. The appendix is normal. Free air or fluid: None. VASCULATURE The abdominal aorta is normal in caliber. PELVIS No abnormality. BONES/SOFT TISSUES No significant lesion. Procedure Note Lex Webb MD - 01/03/[address], [place] [address] Examination: CT abdomen and pelvis without IV contrast. Clinical Information: Abdominal pain. Comparison: CT 11/29/2023. Technique: IV contrast: None Oral contrast: None. Technical comments: Standard technique. Dose reduction: This CT exam was performed using one or more of thefollowing dose reduction techniques: Automated exposure control,adjustment of the mA and/or kV according to patient size, and/or use ofiterative reconstruction technique. Findings: LOWER CHEST Heart is normal in size. Lung bases are clear. No pleural or pericardialeffusions. UPPER ABDOMEN Liver and bile ducts: Normal in size and contour. No biliary dilatation. Gallbladder: Stones are noted within the gallbladder. No gallbladder wallthickening or pericholecystic fluid. Pancreas: Unremarkable. Spleen: Negative. RETROPERITONEUM Adrenals: Negative. Kidneys: Redemonstrated findings of chronic right hydronephrosis, againwith findings suggestive of chronic UPJ obstruction. Nonobstructingbilateral renal stones are again noted. Lymph nodes: No lymphadenopathy in the abdomen or pelvis. BOWEL AND PERITONEUM Bowel: Normal in caliber and wall thickness. The appendix is normal. Free air or fluid: None. VASCULATURE The abdominal aorta is normal in caliber. PELVIS No abnormality. BONES/SOFT TISSUES No significant lesion. Impression: 1. Redemonstrated findings of chronic right hydronephrosis, with findingsagain suggestive of chronic right UPJ obstruction. This appears similar toprior. 2. Redemonstrated bilateral nonobstructing renal stones. 3. Uncomplicated cholelithiasis. Ordered By: ENRRIQUE JARA Interpreted By: Lex Webb MD, 01/03/2024 4:33 AM Enrrique Jara MD CT Final Result * (ABNORMAL) COMPREHENSIVE METABOLIC PANEL (01/03/2024 3:51 AM BAND INSTRUMENT REPAIRER) GLUCOSE 223(H) 70 - 99 MG/DL 01/03/2024 4:25 AM BAND INSTRUMENT REPAIRER [facility] BUN 23(H) 7 - 18 MG/DL 01/03/2024 4:25 AM BAND INSTRUMENT REPAIRER [facility] CREATININE S/P/B 1.24(H) 0.55 - 1.02 MG/DL 01/03/2024 4:25 AM [facility] SODIUM S/P/B 138 136 - 145 MMOL/L 01/03/2024 4:25 AM [facility] POTASSIUM S/P/B 3.6 3.5 - 5.1 MMOL/L 01/03/2024 4:25 AM [facility] CHLORIDE S/P/B 105 97 - 115 MMOL/L 01/03/2024 4:25 AM [facility] CO2 24.8 21 - 32 MMOL/L 01/03/2024 4:25 AM [facility] CALCIUM S/P/B 10.1 8.5 - 10.1 MG/DL 01/03/2024 4:25 AM [facility] BILIRUBIN TOTAL S/P/B 0.4 0.2 - 1.2 MG/DL 01/03/2024 4:25 AM [facility] Comment: THIS ASSAY IS NOT RECOMMENDED FOR PATIENTS UNDERGOING TREATMENT WITH ELTROMBOPAG DUE TO THE POTENTIAL FOR FALSELY ELEVATED RESULTS. TOTAL PROTEIN S/P/B 9.2(H) 6.4 - 8.2 G/DL 01/03/2024 4:25 AM [facility] ALBUMIN S/P/B 3.7 3.4 - 5.0 G/DL 01/03/2024 4:25 AM [facility] AST 16 15 - 37 U/L 01/03/2024 4:25 AM [facility] ALT 20 14 - 55 U/L 01/03/2024 4:25 AM [facility] ALKALINE PHOSPHATASE S/P/B 159(H) 50 - 136 U/L 01/03/2024 4:25 AM [facility] ANION GAP 8.2 2 - 10 MMOL/L 01/03/2024 4:25 AM [facility] BUN CREATININE RATIO 18.5 6 - 26 01/03/2024 4:25 AM [facility] A/G RATIO 0.7(L) 1.0 - 2.0 RATIO 01/03/2024 4:25 AM [facility] GFR ESTIMATE 52(L) >90 ML/MIN/1.7 3 M2 01/03/2024 4:25 AM [facility] Comment: NOTE: eGFR is not calculated for patients <18 years of age or gender unknown. This is an estimated GFR calculation using the new CKD EPI creatinine equation without race and so does not require a correction factor for race. This estimated GFR should not be used for calculating drug doses. 01/03/2024 3:51 AM BAND INSTRUMENT REPAIRER Enrrique Jara MD LABORATORY Final Result [facility] [address] [place] [address], * CBC W/DIFF AUTOMATED (01/03/2024 3:51 AM [facility]) WBC 8.92 4.5 - 11.0 x10'3/uL 01/03/2024 4:02 AM [facility] RBC 4.40 4.20 - 5.40 x10'6/uL 01/03/2024 4:02 AM [facility] HGB 13.1 12.0 - 16.0 G/DL 01/03/2024 4:02 AM [facility] HCT 39.3 38.0 - 48.0 % 01/03/2024 4:02 AM [facility] MCV 89.3 81.0 - 99.0 FL 01/03/2024 4:02 AM [facility] MCH 29.8 27.0 - 31.0 PG 01/03/2024 4:02 AM [facility] MCHC 33.3 32.0 - 36.0 G/DL 01/03/2024 4:02 AM [facility] RDW 13.1 11.5 - 14.5 % 01/03/2024 4:02 AM [facility] PLT 300 130 - 400 x10'3/uL 01/03/2024 4:02 AM [facility] MPV 11.0 9.3 - 12.2 FL 01/03/2024 4:02 AM [facility] DIFFERENTIAL TYPE AUTOMATED DIFFERENTIAL 01/03/2024 4:02 AM [facility] NEUTROPHILS % 69.9 % 01/03/2024 4:02 AM [facility] LYMPHOCYTES % 25.1 % 01/03/2024 4:02 AM [facility] MONOCYTES % 3.7 % 01/03/2024 4:02 AM [facility] EOSINOPHILS 0.4 % 01/03/2024 4:02 AM [facility] BASOPHILS 0.7 % 01/03/2024 4:02 AM [facility] IMMATURE GRANS % 0.2 % 01/03/20 4:02 AM [facility] ABS. NEUTROPHILS 6.23 1.80 - 7.70 x10'3/uL 01/03/2024 4:02 AM [facility] ABS. LYMPHOCYTES 2.24 1.00 - 4.80 x10'3/uL 01/03/2024 4:02 AM [facility] ABS. MONOCYTES 0.33 0.24 - 0.86 x10'3/uL 01/03/2024 4:02 AM BAND INSTRUMENT REPAIRER [facility] ABS. EOSINOPHILS 0.04 0.04 - 0.36 x10'3/uL 01/03/2024 4:02 AM BAND INSTRUMENT REPAIRER [facility] ABS. BASOPHILS 0.06 0.01 - 0.08 x10'3/uL 01/03/2024 4:02 AM BAND INSTRUMENT REPAIRER [facility] ABS. IMMATURE GRANULOCYTES 0.02 0.00 - 0.49 x10'3/uL 01/03/2024 4:02 AM BAND INSTRUMENT REPAIRER [facility] 01/03/2024 3:51 AM BAND INSTRUMENT REPAIRER Enrrique Jara MD LABORATORY Final Result [facility] [address] [place] [address], documented in this encounter Visit Diagnoses Diagnosis Constipation- Primary Unspecified constipation documented in this encounter Administered Medications Inactive Administered Medications - up to 3 most recent administrations Medication Order MAR Action Action Date Dose Rate Site morphine injection 4 mg 4 mg, Intravenous, Once, 1 dose, On Viky 01/03/24 at 0415 Given 01/03/2024 4:14 AM BAND INSTRUMENT REPAIRER 4 mg ondansetron (ZOFRAN) injection 4 mg 4 mg, Intravenous, Once, 1 dose, On Viky 01/03/24 at 0415, IV push over 2-5 minutes. Given 01/03/2024 4:15 AM BAND INSTRUMENT REPAIRER 4 mg documented in this encounter Active and Recently Administered Medications Times are shown in BAND INSTRUMENT REPAIRER. Scheduled Medication Order 01/01/2024 01/02/2024 01/03/2024 morphine injection 4 mg (COMPLETED) 4 mg, Intravenous, Once, 1 dose, On Viky 01/03/24 at 0415 0414 (Given - Provid er: Ashanti Bright RN) ondansetron (ZOFRAN) injection 4 mg (COMPLETED) 4 mg, Intravenous, Once, 1 dose, On Viky 01/03/24 at 0415, IV push over 2-5 minutes. 0415 (Given - Provid er: Ashanti Bright RN) documented in this encounter Additional Health Concerns Assessment Noted Time PHQ-9 Depression Total Score: 0 03/08/19 22 9:30 AM BAND INSTRUMENT REPAIRER documented as of this encounter Care Teams Head Of Conservation Relationship Specialty Start Date End Date Yasmin Segura II, MD [address] [place] [address] PCP - General FAMILY PRACTICE 03/09/21 [place] [address] [place] [address] PODIATRY/SURGERY 05/05/22 documented as of this encounter
--- OUTSIDE RECORDS SUMMARY | 2024-03-02 22:21 | XMS_ITS | Encounter Summary ---
Author Organization [facility] Address [address] [place] [address]. [place] [address] [place] [address] Care Team Providers Care Host And Hostess Name Role Phone Colton SILVEIRA MD, Abiodun Rushing Primary Care Provider Victoriano Langston MD Unavailable [phone] Encounter Details Date Type Department Care Team (Latest Contact Info) Description 12/27/2023 Scan [facility] SRVCS Scanned, Doc [...] doctor or pharmacy? Often 11/29/2023 [facility] Utilities Answer Date Recorded In the past 12 months has [employer], [employer], oil, or water [employer] threatened to shut off services in your [...] often do you attend chur ch or baptist services? Never 11/29/2023 Active Member of Clubs [...] Recorded Patient Health Questionnaire-2 Score 1 03/05/2023 [facility] - [...] any time in the past 12 m [facility] [place], were you homeless or living in a [...] st Contact Info) Description 03/14/2024 11:45 AM SEED LABORATORY TECHNICIAN Office Visit [facility] [phone] Marvin Mckeon MD Three [facility] [address] [place] [id number] 03/20/2024 11:30 AM SEED LABORATORY TECHNICIAN Office Visit [facility] - [place] [address] [place] [phone] Abiodun Segura II, MD [address] [place] [address] documented as of this encounter Goals Goal Patient Goal Type Associated Problems Recent Progress Patient-Stated? Author Family - family caregiver with be involved in care transitions and discharge planning Lifestyle Natty Angeles RN documented as of this encounter Visit Diagnoses Not on filedocumented in this encounter Additional Health Concerns Assessment Noted Time PHQ-9 Depression Total Score: 0 03/08/19 22 9:30 AM SEED LABORATORY TECHNICIAN documented as of this encounter Care Teams Host And Hostess Relationship Specialty Start Date End Date Abiodun Segura II, MD [address] [place] [address] PCP - General FAMILY PRACTICE 03/09/21 [place] [address] [place] [address] PODIATRY/SURGERY 05/05/22 documented as of this encounter
--- OUTSIDE RECORDS SUMMARY | 2024-03-02 22:21 | XMS_ITS | Encounter Summary ---
Author Organization [facility] Address [address] [place] [address]. [place] [address] [place] [address] Care Team Providers Care Crude Oil Driver Name Role Phone Colton SILVEIRA MD, Abiodun Rushing Primary Care Provider Victoriano Langston MD Unavailable [phone] Encounter Details Date Type Department Care Team (Latest Contact Info) Description 11/28/2023 Travel Social History Tobacco Use Types Packs/Day [...] from your doctor or pharmacy? Often 11/29/2023 [facility] Utilities Answer Date Recorded In the past 12 months has [employer], [employer], or water [employer] threatened to shut off services in your [...] often do you attend chur ch or restorationist services? Never 11/29/2023 Active Member of Clubs [...] Recorded Patient Health Questionnaire-2 Score 1 03/05/2023 [facility] - [...] place to sleep or slept in a alf (including now)? No 03/06/2023 Housing Stability Vital Sign Answer Raymon e Recorded In the last 12 months, was t here a time when you were not able to pay the mortgage or rent on time? No 11/29/2023 In the past 12 months, how m any times have you moved where you were living? 1 11/29/2023 At any time in the past 12 m [facility], were you homeless or living in a alf (including now)? No 11/29/2023 Comments No Sex [...] Assessment Author Status Yes 03/06/2023 3:39 PM BACON SKIN LIFTER Teresa Amaya RN Active * Do you have difficulty dressing or bathing? Answer Date of Assessment Author Status Yes 03/06/2023 3:39 PM BACON SKIN LIFTER Teresa Amaya RN Active * Because of a physical, mental, or emotional condition, do you have difficulty doing errands alone such as visiting a doctor's office or shopping? Answer Date of Assessment Author Status Yes 03/06/2023 3:39 PM BACON SKIN LIFTER Teresa Amaya RN Active documented as of this encounter Mental Status * Because of a physical, mental, or emotional condition, do you have serious difficulty concentrating, remembering, or making decisions? Answer Entry Date Author Status No 03/06/2023 3:39 PM BACON SKIN LIFTER Teresa Amaya RN Active documented in this encounter Plan of Treatment Upcoming Encounters Date Type Department Care Team (Late st Contact Info) Description 03/14/2024 11:45 AM BACON SKIN LIFTER Office Visit [facility] [phone] Marvin Mckeon MD Three [facility] [address] [place] [id number] 03/20/2024 11:30 AM BACON SKIN LIFTER Office Visit [facility] Family [facility] - [place] [address] [place] [phone] Abiodun Segura II, MD [address] [place] [address] documented as of this encounter Goals Goal Patient Goal Type Associated Problems Recent Progress Patient-Stated? Author Family - family caregiver with be involved in care transitions and discharge planning Lifestyle Natty Angeles RN documented as of this encounter Visit Diagnoses Not on filedocumented in this encounter Additional Health Concerns Assessment Noted Time PHQ-9 Depression Total Score: 0 03/08/19 22 9:30 AM BACON SKIN LIFTER documented as of this encounter Care Teams Crude Oil Driver Relationship Specialty Start Date End Date Abiodun Segura II, MD [address] [place] [address] PCP - General FAMILY PRACTICE 03/09/21 [place] [address] [place] [address] PODIATRY/SURGERY 05/05/22 documented as of this encounter
--- OUTSIDE RECORDS SUMMARY | 2024-03-02 22:21 | XMS_ITS | Encounter Summary ---
Author Organization [facility] Address [address] [place] [address]. [place] [address] [place] [address] Care Team Providers Care Client Services Assistant Name Role Phone Colton SILVEIRA MD, Yasmin Rushing Primary Care Provider Victoriano Langston MD Unavailable [phone] Reason for Referral * Consultation (Urgent) - Authorized Specialty Diagnoses / Procedures Referred By Contxavier t Referred To Contact INFECTIOUS DISEASE Diagnoses History of recurrent UTIs Procedures OFFICE/OUTPATIENT NEW LOW MDM 30-44 MINUTES OFFICE/OUTPT VISIT,NEW,LEVL IV OFFICE/OUTPT VISIT,NEW,LEVL V OFFICE/OUTPT VISIT,EST,LEVL III OFFICE/OUTPT VISIT,EST,LEVL IV OFFICE/OUTPT VISIT,EST,LEVL V Yasmin Valenzuela II, MD [address] [place] [address] Phone: tel: fax: [facility] [address] [place] [address] Phone: tel: fax: Referral ID Status Reason Start Date Expiration Date Visits Requested Visits Authorized [id number] Authorized Specialty Services 10/31/2023 10/28/2024 99 99 Scheduling Instructions 53 yo female with multiple recurrent resistant UTI's . Please evaluate and treat. Thanks. Patient would like to be seen at [facility] if possible. Thanks. Reason for Visit * Reason Comments Health Maintenance Follow Up Patient pre sents for health maintenance to follow up for hypertension, diabetes and A1C check Encounter Details Date Type Department Care Team (Late st Contact Info) Description 10/29/2023 10:50 AM CDT Office Visit [facility] Family Medicine - [place] [address] [place] [phone] Yasmin Valenzuela II, MD [address] [place] [address] Health Maintenance Follow Up (Patient presents for health maintenance to follow up for hypertension, diabetes and A1C check) Social History Tobacco Use Types Packs/Day Years Used Date Smoking Tobacco: Never Smokeless Tobacco: Never Tobacco Cessation:Counseling Given: No Alcohol Use Standard Drinks/Week Comments Not Currently 0 (1 standard drink = 0.6 oz pur e alcohol) few times per year [facility] Utilities Answer Date Recorded In the past 12 months has [employer], gas, oil, or water [employer] threatened to shut off services in your [...] Recorded Patient Health Questionnaire-2 Score 1 03/05/2023 [facility] - Occupational Stress Questionnaire Answer Date Recorded [...] place to sleep or slept in a prison (including now)? No 03/06/2023 Comments No Sex and Gender Information Value Date Recorded Sex Assigned at Female 12/17/2021 2:07 AM CDT Legal Sex Female 2:58 PM CDT Gender Identity Female 12/17/2021 2:07 AM CDT Sexual Orientation Straight 12/17/2021 2: 07 AM CDT documented as of this encounter Last Filed Vital Signs Vital Sign Reading Time Taken Comments Blood Pressure 134/76 10/29/2023 11:16 AM CDT Pulse 84 10/29/2023 10:51 AM CDT Temperature 36.7 ??C (98.1 ??F) 10/29/2023 10:51 AM C DT Respiratory Rate - - Oxygen Saturation 96% 10/29/2023 10:51 AM CDT Inhaled Oxygen Concentration - - Weight 90.3 kg (199 lb) 10/29/2023 10:51 AM CDT Height - - Body Mass Index 32.12 03/05/2023 1:02 PM GLASS ENGRAVER documented in this encounter Functional Status * Are you deaf or do you have serious difficulty hearing Answer Date of Assessment Author Status No 03/06/2023 3:39 PM GLASS ENGRAVER Teresa Amaya RN Active * Are you blind or do you have serious difficulty seeing, even when wearing glasses? Answer Date of Assessment Author Status Yes 03/06/2023 3:39 PM GLASS ENGRAVER Teresa Amaya RN Active * Do you have serious difficulty walking or climbing stairs? Answer Date of Assessment Author Status Yes 03/06/2023 3:39 PM GLASS ENGRAVER Teresa Amaya RN Active * Do you have difficulty dressing or bathing? Answer Date of Assessment Author Status Yes 03/06/2023 3:39 PM GLASS ENGRAVER Teresa Amaya RN Active * Because of a physical, mental, or emotional condition, do you have difficulty doing errands alone such as visiting a doctor's office or shopping? Answer Date of Assessment Author Status Yes 03/06/2023 3:39 PM GLASS ENGRAVER Teresa Amaya RN Active documented as of this encounter Mental Status * Because of a physical, mental, or emotional condition, do you have serious difficulty concentrating, remembering, or making decisions? Answer Entry Date Author Status No 03/06/2023 3:39 PM GLASS ENGRAVER Teresa Amaya RN Active documented in this encounter Progress Notes * Yasmin Valenzuela II, MD - 10/29/2023 10:50 AM CDT Images from the original note were not included. [facility] [address] [address] OFFICE FOLLOW UP NOTE Encounter Date: 10/29/2023 Chief Complaint: Health Maintenance Follow Up (Patient presents for health maintenance to follow up for hypertension, diabetes and A1C check) History of Present Illness: 53-year-old female with history of diabetes, hypertension, hyperlipidemia, Charcot foot, left toe amputation, constipation, blindness of right eye, history of gastric ulcer, and multiple recurrent UTIs here to follow-up on weight after beginning semaglutide for diabetes control. Patient also reports that her cystitis symptoms cleared with fosfomycin but have since returned. She wonders what else she can use. Infection disease at [facility] was not able to see patient secondary to not taking new patients at this time. Patient denies back pain or fevers. Here for evaluation and treatment recommendations. Review Of Systems: Positive ROS items as noted in HPI. All other Systems were reviewed and are negative. Patient Active Problem List Diagnosis Hypercholesteremia Hypertension Type 2 diabetes mellitus ([facility]/HCC HHS/HCC) Renal disorder Chronic bilateral low back pain without sciatica Callus of foot Vision decreased Renal stones Charcot foot due to diabetes mellitus ([facility]/HCC HHS/HCC) Hot flashes due to menopause Chest pain Diabetic foot infection ([facility]/HCC HHS/HCC) Osteomyelitis ([facility]/HCC HHS/HCC) Soft tissue infection of foot Necrotic toes ([facility]/HCC HHS/HCC) Acquired absence of other left toe(s) ([facility] HHS/HCC) Atherosclerosis of [place] arteries of extremities with intermittent claudication, bilateral legs ([facility]/HCC) Intractable abdominal pain Abdominal pain Intractable vomiting Peptic ulcer Epigastric abdominal pain UTI (urinary tract infection) Class 1 obesity due to excess calories with serious comorbidity and body mass index (BMI) of 32.0 to 32.9 in adult Past Medical History: Diagnosis Date Arthritis Charcot foot due to diabetes mellitus ([facility]/HCC HHS/HCC) LEFT FOOT Constipation COVID-19 Diabetes mellitus ([facility]/HCC HHS/HCC) Diabetic neuropathy ([facility]/HCC HHS/HCC) Gastric ulcer High cholesterol Hypertension Kidney [...] year Drug use: No Sexual activity: Not on file Comment: unknown Other Topics Concern Service Not [...] she uses cane and w/w PRN. Social Determinants of Health Financial Resource Strain: Low Risk (03/06/2023) Overall Financial Resource Strain (CARDIA) Difficulty of Paying Living Expenses: Not hard at all Food Insecurity: No Food Insecurity (03/06/2023) Hunger Vital Sign Worried About Running Out of Food in the Last Year: Never true Ran Out of Food in the Last Year: Never true Transportation Needs: No Transportation Needs (03/06/2023) PRAPARE - Transportation Lack of Transportation (Medical): No Lack of Transportation (Non-Medical): No Physical Activity: Inactive (03/06/2023) Exercise Vital Sign Days of Exercise per Week: 0 days Minutes of Exercise per Session: 0 min Stress: No Stress Concern Present (03/06/2023) [facility] - Occupational Stress Questionnaire Feeling of Stress : Not at all Social Connections: Not on file Intimate Partner Violence: Not At Risk (03/06/2023) Humiliation, Afraid, Rape, and Kick questionnaire Fear of Current or Ex-Partner: No Emotionally Abused: No Physically Abused: No Sexually Abused: No Housing Stability: Low Risk (03/06/2023) Housing Stability Vital Sign Unable to Pay for Housing in the Last Year: No Number of Places Lived in the Last Year: 1 Unstable Housing in the Last Year: No There is [...] THE MORNING AND 55 IN THE EVENING (Patient taking differently: 70 Q AM and 60 Q HS) 40 mL 3 HYDROcodone-acetaminophen (NORCO) 5-325 MG [...] mouth every evening. Indications:hypertension 90 tablet 3 nitrofurantoin, macrocrystal-monohydrate, (MACROBID) 100 MG capsule Take 1 capsule (100 mg total) by mouth 2 (two) times daily for 14 days. 28 capsule 0 omeprazole (PRILOSEC) 20 MG capsule Take 1 capsule (20 mg total) by mouth daily as needed. ondansetron (ZOFRAN-ODT) 4 MG disintegrating tablet Take 1 tablet (4 mg total) by mouth every 6 (six) hours as needed for Nausea. 20 tablet 0 oxybutynin (DITROPAN) 5 MG tablet Take 1 tablet (5 mg total) by mouth 3 (three) times daily as needed (pain). phenazopyridine (PYRIDIUM) 100 MG tablet Take 1 tablet (100 mg total) by mouth 3 (three) times daily as needed for Pain. 9 tablet 0 semaglutide (OZEMPIC) 2 MG/3ML injection (PEN) Inject 0.5 mg into the skin every 7 days. Indications: Diabetes 3 mL 5 simvastatin (ZOCOR) 40 MG tablet Take 1 tablet (40 mg total) by mouth nightly at bedtime. 90 tablet3 traMADol (ULTRAM) 50 MG tablet Take 1 tablet (50 mg total) by mouth every 6 (six) hours as needed. triamcinolone (KENALOG) 0.1 % cream Apply topically 2 (two) times daily. 453.6 g 1 fosfomycin (MONUROL) 3 g Pack Take 3 gm by mouth every other day for 3 doses. (Patient not taking: Reported on 09/26/2023) 3 each 0 oxyCODONE-acetaminophen (PERCOCET) 5-325 MG tablet Take 1 tablet by mouth every 8 (eight) hours as needed. (Patient not taking: Reported on 10/29/2023) No current facility-administered medications for this visit. Allergies Allergen Reactions Ceftriaxone Rash Fish Oil Unknown Amoxicillin Rash Penicillins Rash Objective: Filed Vitals: 10/29/23 1051 10/29/23 1116 BP: (!) 160/94 134/76 Pulse: 84 Temp: 98.1 ??F (36.7 ??C) TempSrc: Temporal SpO2: 96% Weight: 90.3 kg (199 lb) Nursing note reviewed. Physical Exam Vitals [...] is normal. Breath sounds: Normal breath sounds. Abdominal: General: Bowel sounds are normal. Palpations: Abdomen is soft. Tenderness: There is no right CVA tenderness or left CVA tenderness. Musculoskeletal: Cervical back: Normal range of motion and neck supple. No rigidity. Skin: General: Skin is warm and dry. Neurological: Mental Status: She is alert and oriented to person, place, and time. Mental status is at baseline. Psychiatric: Mood and Affect: Mood normal. Behavior: Behavior normal. Thought Content: Thought content normal. Judgment: Judgment normal. Labs: Results for orders placed or performed in visit on 10/29/23 URINALYSIS AUTO DIP Result Value Ref Range COLOR (U) PALE YELLOW YELLOW TRANSPARENCY CLOUDY (A) CLEAR GLUCOSE (U) NEGATIVE NEGATIVE MG/DL BILIRUBIN (U) NEGATIVE NEGATIVE KETONES MG/DL (U) NEGATIVE NEGATIVE MG/DL SPECIFIC GRAVITY (U) 1.020 1.001 - 1.035 BLOOD (U) SMALL (1+, Hemolyzed) (A) NEGATIVE U PH 6.0 5.0 - 9.0 PROTEIN (U) 3+ (>=300) (A) NEGATIVE mg/dL UROBILINOGEN 0.2 0.2 - 1.0 EU/dL = mg/dL NITRITES NEGATIVE NEGATIVE MG/DL LEUKOCYTES (U) 3+ (LARGE) (A) NEGATIVE Counseling The patient and patient's family was counseled regarding instructions for management, patient and family education and importance of compliance with treatment. Assessment: 1. Type 2 diabetes mellitus with diabetic neuropathic arthropathy, with long- term current use of insulin ([facility]) semaglutide (OZEMPIC) 2 MG/3ML injection (PEN) 2. Acute cystitis without hematuria nitrofurantoin, macrocrystal-monohydrate, (MACROBID) 100 MG capsule phenazopyridine (PYRIDIUM) 100 MG tablet URINALYSIS AUTO DIP URINE BACTERIA CULTURE 3. History of recurrent UTIs Ambulatory referral to Infectious Disease (OTHER) URINALYSIS AUTO DIP URINE BACTERIA CULTURE 4. Primary hypertension 5. Hypercholesteremia 6. Class 1 obesity due to excess calories with serious comorbidity and body mass index (BMI) of 32.0 to 32.9 in adult Plan: Orders Placed This Encounter Medications oxyCODONE-acetaminophen (PERCOCET) 5-325 MG tablet doxycycline hyclate (VIBRAMYCIN) 50 MG capsule nitrofurantoin, macrocrystal-monohydrate, (MACROBID) 100 MG capsule phenazopyridine (PYRIDIUM) 100 MG tablet semaglutide (OZEMPIC) 2 MG/3ML injection (PEN) 1. Type 2 diabetes mellitus with diabetic neuropathic arthropathy, with long- term current use of insulin ([facility]/HCC [facility]/HCC) Patient is tolerating semaglutide well. We will increase dose to 0.5 mg weekly and plan to check hemoglobin A1c at follow-up in November. Further adjustments pending results at that time. - semaglutide (OZEMPIC) 2 MG/3ML injection (PEN); Inject 0.5 mg into the skin every 7 days. Indications: Diabetes Dispense: 3 mL; Refill: 5 2. Acute cystitis without hematuria Patient has another bout of acute cystitis. Previous sensitivities were reviewed. We will treat with nitrofurantoin twice daily for 2 weeks. 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 This may need further workup in the future. - nitrofurantoin, macrocrystal-monohydrate, (MACROBID) 100 MG capsule; Take 1 capsule (100 mg total) by mouth 2 (two) times daily for 14 days. Dispense: 28 capsule; Refill: 0 - phenazopyridine (PYRIDIUM) 100 MG tablet; Take 1 tablet (100 mg total) by mouth 3 (three) times daily as needed for Pain. Dispense: 9 tablet; Refill: 0 - URINALYSIS AUTO DIP - URINE BACTERIA CULTURE; Future - URINE BACTERIA CULTURE 3. History of recurrent UTIs We will consult infectious disease for recommendations for prophylaxis or retreatment. - Ambulatory referral to Infectious Disease (OTHER) - URINALYSIS AUTO DIP - URINE BACTERIA CULTURE; Future - URINE BACTERIA CULTURE 4. Primary hypertension Patient's blood pressure is at goal on recheck. We will continue amlodipine 10 mg daily along with lisinopril 20 mg daily and we will recheck blood pressure at follow-up in November. 5. Hypercholesteremia Patient's lipids are at goal on simvastatin 40 mg daily. We will continue current dose and plan to recheck lipids in 6 to 12 months for trend. 6. Class 1 obesity due to excess calories with serious comorbidity and body mass index (BMI) of 32.0 to 32.9 in adult Patient has adopted a more Mediterranean style diet and along with GLP-1 inhibitor use is lost approximately 9 pounds since last visit. Patient will continue her current weight loss efforts and we will recheck weight at follow-up in November. I personally spent a total of 35 minutes on the day of the encounter. This includes crsj-nr-aakl and sya-bmaf-ig-face time I provided on the day of the encounter & excludes time spent performing separately reportable services. Medications Discontinued During This Encounter Medication Reason fosfomycin (MONUROL) 3 g Pack Duplicate Med semaglutide (OZEMPIC) 2 MG/3ML injection (PEN) Reorder YASMIN VALENZUELA MD 10/29/2023 Portions of this note were dictated using [employer]Exactly speech recognition software. Occasional wrong wordor sound-alike substitutions may have occurred due to the inherent limitations of voice recognition software. Please read the chart carefully and recognize, using context, where the substitutions may have occurred. documented in this encounter Plan of Treatment Upcoming Encounters Date Type Department Care Team (Late st Contact Info) Description 03/14/2024 11:45 AM GLASS ENGRAVER Office Visit [facility] [phone] Marvin Mckeon MD Three [facility] [address] [place] [address] 03/20/2024 11:30 AM GLASS ENGRAVER Office Visit [facility] Family Medicine - [address] [phone] Yasmin Valenzuela II, MD [address] [place] [address] Scheduled Referrals Name Type Priority Associated Diagnoses Orde r Schedule Ambulatory referral to Infectious Disease (OTHER) Referral Routine History of recurrent UTIs Ordered: 10/29/2023 documented as of this encounter Goals Goal Patient Goal Type Associated Problems Recent Progress Patient-Stated? Author Family - family caregiver with be involved in care transitions and discharge planning Lifestyle No Natty Cheek, RN documented as of this encounter Procedures Procedure Name Priority Date/Time Associated Diagnosis Comments URINE BACTERIA CULTURE Routine 10/29/2023 11:00 AM CDT Acute cystitis without hematuria History of recurrent UTIs URINALYSIS AUTO DIP Routine 10/29/2023 Acute cystitis without hematuria History of recurrent UTIs documented in this encounter Results * (ABNORMAL) URINE BACTERIA CULTURE (10/29/2023 11:00 AM CDT) CULTURE RESULT (A) [facility] Comment: ??CULTURE, URINE, ROUTINE ?Micro Number: ?[id number] ??Test Status: ? Final ??Specimen Source: ?? Urine ??Specimen Quality: ??Adequate ??Result: ?Greater than 100,000 CFU/mL of Enterococcus species ?Enterococcus sp. ?INT ?? JESSI ?? AMPICILLIN ? S ? <=2 ?? NITROFURANTOIN ? S ? <=16 ?? VANCOMYCIN ? S ? 1 S = Susceptible ??I = Intermediate ??R = Resistant ??NS = Not susceptible SDD = Susceptible Dose Dependent ??* = Not Tested ??NR = Not Reported NN = See Therapy Comments URINE SPECIMEN OBTAINED BY CLEAN CATCH PROCEDURE / Unknown 10/29/2023 11:00 AM CDT 10/29/2023 11:48 PM CDT Narrative Resulting Agency Comment Performing Organization Information: ?Site ID: [id number] ?Name: [facility] ?Address: [address] [place] [address] ?Director: Robert Mendez Yasmin Valenzuela II, MD MICROBIOLOGY - GENERAL ORDERABLES Final Result [facility] ORD[facility]-[address] [phone], [place] * (ABNORMAL) URINALYSIS AUTO DIP (10/29/2023) COLOR (U) PALE YELLOW YELLOW [facility],[place] TRANSPARENCY CLOUDY(A) CLEAR [facility],[place] GLUCOSE (U) NEGATIVE NEGATIVE MG/DL [facility],[place] BILIRUBIN (U) NEGATIVE NEGATIVE [facility]-[address],[place] KETONES MG/DL (U) NEGATIVE NEGATIVE MG/DL [facility],[place] SPECIFIC GRAVITY (U) 1.020 1.001 - 1.035 [facility],[place] BLOOD (U) SMALL (1+, Hemolyzed)( A) NEGATIVE [facility]-[address],[place] U PH 6.0 5.0 - 9.0 [facility]-[address],[place] PROTEIN (U) 3+ (>=300)(A) NEGATIVE mg/dL [facility],[place] UROBILINOGEN 0.2 0.2 - 1.0 EU/dL = mg/dL [facility],[place] NITRITES NEGATIVE NEGATIVE MG/DL [facility]-[address],[place] LEUKOCYTES (U) 3+ (LARGE)(A) NEGATIVE [facility],[place] URINE SPECIMEN OBTAINED BY CLEAN CATCH PROCEDURE / Unknown 10/29/2023 Yasmin Valenzuela II, MD URINE ORDERABLES Final Result [facility] [address] [place] [address], [place] [phone] documented in this encounter Visit Diagnoses Diagnosis Type 2 diabetes mellitus with diabetic neuropathic arthropathy, with long-term current use of insulin ([facility]/HCC HHS/HCC)- Primary Acute cystitis without hematuria Acute cystitis History of recurrent UTIs Personal history of urinary (tract) infection Primary hypertension Unspecified essential hypertension Hypercholesteremia Pure hypercholesterolemia Class 1 obesity due to excess calories with serious comorbidity and body mass index (BMI) of 32.0 to 32.9 in adult documented in this encounter Additional Health Concerns Assessment Noted Time PHQ-9 Depression Total Score: 0 03/08/19 22 9:30 AM GLASS ENGRAVER documented as of this encounter Care Teams Client Services Assistant Relationship Specialty Start Date End Date Yasmin Valenzuela II, MD [address] [place] [address] PCP - General FAMILY PRACTICE 03/09/21 [place] [address] [place] [address] PODIATRY/SURGERY 05/05/22 documented as of this encounter
--- OUTSIDE RECORDS SUMMARY | 2024-03-02 22:21 | XMS_ITS | Encounter Summary ---
Author Organization [facility] Address [address] [place] [address]. [place] [address] [place] [address] Care Team Providers Care Geothermal Sheet Metal Worker Name Role Phone Colton SILVEIRA MD, Abiodun Rushing Primary Care Provider Victoriano Langston MD Unavailable [phone] Reason for Visit * Reason Onset Date Comments Quality Gap Closure 10/24/2023 Record Request 10/24/2023 Encounter Details Date Type Department Care Team (Late st Contact Info) Description 10/24/2023 Telephone [facility] Family [facility] - [place] [address] [place] [address] Abiodun Segura II, MD [address] [place] [address] Quality Gap Closure; Record Request Social History Tobacco Use Types Packs/Day Years Used Date Smoking Tobacco: Never Smokeless Tobacco: Never Alcohol Use Standard Drinks/Week Comments Not Currently 0 (1 standard drink = 0.6 oz pur e alcohol) few times per year [facility] Utilities Answer Date Recorded In the past 12 months has e [employer], gas, oil, or water [employer] threatened to shut off services in your [...] Recorded Patient Health Questionnaire-2 Score 1 03/05/2023 [facility] Occupat ional [facility] - Occupational Stress Questionnaire Answer Date Recorded [...] in a correction (including now)? No 03/06/2023 Comments No Sex [...] Date Author Status No 03/06/2023 3:39 PM MAIL INSERTER Amaya, Teresa K , RN Active documented in this encounter Progress Notes * Merced Wise MA - 10/24/2023 10:32 AM CDT Requesting the most recent dm eye exam report [facility] and sent to the PCP on 10/24/2023 documented in this encounter Plan of Treatment Upcoming Encounters Date Type Department Care Team (Late st Contact Info) Description 03/14/2024 11:45 AM MAIL INSERTER Office Visit [facility] [phone] Marvin Mckeon MD [address] [facility] [address] [place], [place] [phone] 03/20/2024 11:30 AM MAIL INSERTER Office Visit [facility] Family [facility] - [place] [address] [place] [phone] Abiodun Segura II, MD [address] [place], [place] [phone] documented as of this encounter Goals Goal Patient Goal Type Associated Problems Recent Progress Patient-Stated? Author Family - family caregiver with be involved in care transitions and discharge planning Lifestyle No Natty Cheek, RN documented as of this encounter Visit Diagnoses Not on filedocumented in this encounter Additional Health Concerns Assessment Noted Time PHQ-9 Depression Total Score: 0 03/08/19 9:30 AM MAIL INSERTER documented as of this encounter Care Teams Geothermal Sheet Metal Worker Relationship Specialty Start Date End Date Abiodun Segura II, MD [address] [place], [place] [phone] PCP - General FAMILY PRACTICE 03/09/21 [place] [address] [place] [address] PODIATRY/SURGERY 05/05/22 documented as of this encounter
--- OUTSIDE RECORDS SUMMARY | 2024-03-02 22:21 | XMS_ITS | Encounter Summary ---
Author Organization [facility] Address [address] [place] [address]. [place] [address] [place] [address] Care Team Providers Care Crusher Loader Operator Name Role Phone Colton SILVEIRA MD, Abiodun Rushing Primary Care Provider Victoriano Langston MD Unavailable [phone] Reason for Visit * Reason Comments Dilated Eye Exam (SCAN) Encounter Details Date Type Department Care Team (Late st Contact Info) Description 02/01/2024 Scan HEALTH INFO [facility] Scanned, Doc Med Group Dilated Eye Exam (SCAN) Social History Tobacco Use Types Packs/Day Years [...] from your doctor or pharmacy? Often 11/29/2023 [facility] Utilities Answer Date Recorded In [...] 11/29/2023 How often do you attend chur [employer] or protestant services? Never 11/29/2023 Active Member of Clubs [...] Recorded Patient Health Questionnaire-2 Score 1 03/05/2023 [facility] - Occupational Stress Questionnaire Answer Date [...] place to sleep or slept in a intermediate (including now)? No 03/06/2023 Housing Stability Vital [...] time in the past 12 m [facility], were you homeless or living in a intermediate (including now)? No 11/29/2023 Comments No Sex [...] st Contact Info) Description 03/14/2024 11:45 AM PEOPLE GREETER Office Visit [facility] [address] Marvin Mckeon MD Three [facility] [address] [place], [place] [phone] 03/20/2024 11:30 AM PEOPLE GREETER Office Visit [facility] - [place] [address] [place] [phone] Abiodun Segura II, MD [address] [place], [place] [id number] documented as of this encounter Goals Goal Patient Goal Type Associated Problems Recent Progress Patient-Stated? Author Family - family caregiver with be involved in care transitions and discharge planning Lifestyle No Natty Cheek RN documented as of this encounter Procedures Procedure Name Priority Date/Time Associated Diagnosis Comments DIABETIC RETINOPATHY EXAM (POSITIVE)(SCAN ORDER) Routine 02/01/2024 documented in this encounter Results * DIABETIC RETINOPATHY EXAM (POSITIVE) (02/01/2024) us [facility] Scanned SCANNING Final Resu lt [facility] documented in this encounter Visit Diagnoses Not on filedocumented in this encounter Additional Health Concerns Assessment Noted Time PHQ-9 Depression Total Score: 0 03/08/19 9:30 AM PEOPLE GREETER documented as of this encounter Care Teams Crusher Loader Operator Relationship Specialty Start Date End Date Abiodun Segura II, MD [address] [place] [address] PCP - General FAMILY PRACTICE 03/09/21 [place] [address] [place] [address] PODIATRY/SURGERY 05/05/22 documented as of this encounter
--- OUTSIDE RECORDS SUMMARY | 2024-03-02 22:21 | XMS_ITS | Encounter Summary ---
Author Organization [facility] Address [address] [place] [address]. [place] [address] [place] [address] Care Team Providers Care Electro Optical Engineer Name Role Phone Colton SILVEIRA MD, Abiodun Rushing Primary Care Provider Victoriano Langston MD Unavailable Encounter Details Date Type Department Care Team (Latest Contact Info) Description 12/19/2023 Travel Social History Tobacco Use Types Packs/Day [...] or pharmacy? Often 11/29/[address] [facility] Utilities Answer Date Recorded In the past 12 months has e [employer], [employer], or water [employer] threatened to shut off services in your [...] often do you attend chur ch or anabaptism services? Never 11/29/2023 Active Member of Clubs [...] Recorded Patient Health Questionnaire-2 Score 1 03/05/2023 [facility] - [...] place to sleep or slept in a halfway (including now)? No 03/06/2023 Housing Stability Vital Sign Answer Raymon e Recorded In the last 12 months, was t here a time when you were not able to pay the mortgage or rent on time? No 11/29/2023 In the past 12 months, how m any times have you moved where you were living? 1 11/29/2023 At any time in the past 12 m [facility], were you homeless or living in a halfway (including now)? No 11/29/2023 Comments No Sex [...] st Contact Info) Description 03/14/2024 11:45 AM INSTRUCTOR ADJUNCT SURGICAL TECHNICIAN Office Visit [facility] [address] Marvin Mckeon MD Three [facility] [address] [facility] [place], [place] [phone] 03/20/2024 11:30 AM INSTRUCTOR ADJUNCT SURGICAL TECHNICIAN Office Visit [facility] Family Medicine - [address] [phone] Abiodun Segura II, MD [address] [place] [address] documented as of this encounter Goals Goal Patient Goal Type Associated Problems Recent Progress Patient-Stated? Author Family - family caregiver with be involved in care transitions and discharge planning Lifestyle Natty Angeles, RN documented as of this encounter Visit Diagnoses Not on filedocumented in this encounter Additional Health Concerns Assessment Noted Time PHQ-9 Depression Total Score: 0 03/08/19 9:30 AM INSTRUCTOR ADJUNCT SURGICAL TECHNICIAN documented as of this encounter Care Teams Electro Optical Engineer Relationship Specialty Start Date End Date Abiodun Segura II, MD [address] [place] [address] PCP - General FAMILY PRACTICE 03/09/21 [place] [address] [place] [address] PODIATRY/SURGERY 05/05/22 documented as of this encounter
--- OUTSIDE RECORDS SUMMARY | 2024-03-02 22:21 | XMS_ITS | Encounter Summary ---
Author Organization [facility] Address [address] [place] [address]. [place], [place] [id number] [place] [address] Care Team Providers Care Research And Development Scientist Name Role Phone Colton SILVEIRA MD, Abiodun Rushing Primary Care Provider Victoriano Langston MD Unavailable [phone] Encounter Details Date Type Department Care Team (Latest Contact Info) Description 10/29/2023 Travel Social History Tobacco Use Types Packs/Day Years Used Date Smoking Tobacco: Never Smokeless Tobacco: Never Alcohol Use Standard Drinks/Week Comments Not Currently 0 (1 standard drink = 0.6 oz pur e alcohol) few times per year [facility] Utilities Answer Date Recorded In the past 12 months has e [employer], gas, oil, or water [employer] threatened to shut off services in your [...] Recorded Patient Health Questionnaire-2 Score 1 03/05/2023 [facility] - [...] place to sleep or slept in a nursing home (including now)? No 03/06/2023 Comments No Sex [...] Coe RN Active documented in this encounter Plan of Treatment Upcoming Encounters Date Type Department Care Team (Late st Contact Info) Description 03/14/2024 11:45 AM RAT POISONER Office Visit [facility] [phone] Marvin Mckeon MD [facility] [address] [place] [address] 03/20/2024 11:30 AM RAT POISONER Office Visit [facility] Family Medicine - [place] [address] [place] [phone] Abiodun Segura II, MD [address] [place] [address] documented as of this encounter Goals Goal Patient Goal Type Associated Problems Recent Progress Patient-Stated? Author Family - family caregiver with be involved in care transitions and discharge planning Lifestyle Natty Angeles, RN documented as of this encounter Visit Diagnoses Not on filedocumented in this encounter Additional Health Concerns Assessment Noted Time PHQ-9 Depression Total Score: 0 03/08/19 9:30 AM RAT POISONER documented as of this encounter Care Teams Research And Development Scientist Relationship Specialty Start Date End Date Abiodun Segura II, MD [address] [place] [address] PCP - General FAMILY PRACTICE 03/09/21 [place] [address] [place] [address] PODIATRY/SURGERY 05/05/22 documented as of this encounter
--- OUTSIDE RECORDS SUMMARY | 2024-03-02 22:21 | XMS_ITS | Encounter Summary ---
Author Organization [facility] Address [address] [place] [address]. [place], [place] [id number] [place] [id number] Care Team Providers Care Fixture Maker Name Role Phone Colton SILVEIRA MD, Yasmin Rushing Primary Care Provider Victoriano Langston MD Unavailable [phone] Reason for Referral * Imaging (Emergency) - New Request Specialty Diagnoses / Procedures Referred By Contac t Referred To Contact RADIOLOGY Procedures CT ABD+PEL W CON Janneth Perrin PA [address] [place] [address] Phone: tel: fax: Referral ID Status Reason Start Date Expiration Date V isits Requested Visits Authorized [id number] New Request 11/28/2023 11/27/2024 1 1 Reason for Visit * Reason Comments Urinary Symptoms Back Pain * Auth/Cert Specialty Diagnoses / Procedures Referred By Contac t Referred To Contact Diagnoses Pyelitis UTI (urinary tract infection) Procedures [place] [address] Phone: tel: [phone] fax: Referral ID Status Reason Start Date Expiration Date Visits Re quested Visits Authorized [id number] 1 1 Encounter Details Date Type Department Care Team (Late st Contact Info) Description 11/28/2023 10:33 PM CDT - 12/02/2023 10:41 AM CDT Hospital Encounter [facility] [address] [place] [address] Janneth Perrin PA [address] [place] [id number] Noam Godoy MD [place], [place] [id number] [phone] (Work) Arlene Conley PA-C [address] [place] [address] [phone] (Work) Erin Peck PA-C [address] [place] [address] [phone] Urinary Symptoms; Back Pain Discharge Disposition: Home or Self Care (Routine [...] from your doctor or pharmacy? Often 11/29/2023 [facility] Utilities Answer Date Recorded In the past 12 months has e [employer], gas, oil, or water [employer] threatened to shut off services in your [...] 11/29/2023 How often do you attend chur [place] or orthodoxy services? Never 11/29/2023 Active Member of Clubs [...] Recorded Patient Health Questionnaire-2 Score 1 03/05/2023 [facility] - Occupational Stress Questionnaire Answer Date [...] place to sleep or slept in a retirement (including now)? No 03/06/2023 Housing Stability Vital Sign Answer Raymon e Recorded In the last 12 months, was t here a time when you were not able to pay the mortgage or rent on time? No 11/29/2023 In the past 12 months, how m any times have you moved where you were living? 1 11/29/2023 At any time in the past 12 m [facility], were you homeless or living in a retirement (including now)? No 11/29/2023 Comments No Sex and Gender Information Value Date Recorded Sex Assigned at Female 12/17/2021 2:07 AM CDT Legal Sex Female 2:58 PM CDT Gender Identity Female 12/17/2021 2:07 AM CDT Sexual Orientation Straight 12/17/2021 2: 07 AM CDT documented as of this encounter Last Filed Vital Signs Vital Sign Reading Time Taken Comments Blood Pressure 136/76 12/02/2023 7:48 AM CDT Pulse 87 12/02/2023 7:48 AM CDT Temperature 36.7 ??C (98.1 ??F) 12/02/2023 7:48 AM CD T Respiratory Rate 19 12/02/2023 7:48 AM CDT Oxygen Saturation 98% 12/02/2023 7:48 AM CDT Inhaled Oxygen Concentration - - Weight 92.5 kg (203 lb 14.8 oz) 12/01/2023 4:34 AM CDT Height 167.6 cm (5' 6 ) 11/28/2023 10:2 3 PM CDT Body Mass Index 32.91 11/28/2023 10:23 PM CDT documented in this encounter Functional Status * Question Answer Date of Assessment Author Status Do you have serious difficulty walking or climbing stairs? Yes 11/29/2023 4:33 AM CDT Emelia Mac RN Act mando * Question Answer Date of Assessment Author Status Do you have difficulty dressing or bathing? No 11/29/2023 4:33 AM EMILEET Emelia Mac RN Active Because of a physical, mental, or emotional condition, do you have difficulty doing errands alone such as visiting a doctor's office or shopping? Yes 11/29/2023 4:33 AM EMILEET Emelia Mac RN Acti ve * Are you deaf or do you have serious difficulty hearing Answer Date of Assessment Author Status No 11/29/2023 4:33 AM Emelia Cisneros RN Active * Are you blind or [...] as of this encounter Mental Status * Question Answer Entry Date Author Status Because of a physical, mental, or emotional condition, do you have serious difficulty concentrating, remembering, or making decisions? No 11/29/2023 4:33 AM CDT Emelia Mac, RN Active * Because of a physical, mental, or emotional condition, do you have serious difficulty concentrating, remembering, or making decisions? Answer Entry Date Author Status No 11/29/2023 4:33 AM CDT Emelia Mac RN Active documented in this encounter Discharge Summaries * Erin Peck PA-C - 12/02/2023 9:16 AM CDT Images from the original note were not included. Hospitalist Discharge Summary Patient ID: Lena Mcneal. female. 1970. Admit date: 11/28/2023 10:33 PM Discharge date and time: 12/02/23 Admitting Physician: Noam Godoy MD Attending Physician: Erin Peck PA-C Primary Care Physician: YASMIN SEGURA MD Discharge Physician: ERIN PECK PA-C Hospital Diagnosis: UTI (urinary tract infection) Admission Condition: poor Discharged Condition: Stable Code Status: Full Code Indication for Admission: Chief Complaint Patient presents with Urinary Symptoms Back Pain Readmission/Mortality Score at discharge: Low 0-28, Medium 29-58, High >59 @LACEPLUS@ Hospital Course: Dysuria Recurrent UTI: Per chart review recurrent history of UTI, pyelonephritis Follows closely with ID at [facility]; see chart review Previous urine Cx 11/20 Enterococcus, suspected colonization per ID note Failed treatment with linezolid in the past Continue with vancomycin due to allergies Urology consulted. Appreciate recs -no further intervention recommended at this time Supportive care Repeat urine culture revealing Enterococcus as previous cultures Suspect colonization, consult ID for further recs - switch to Linezolid 600 mg BID [id number] Symptoms resolved on day of discharge Follow up with urology as scheduled CKD stage III Per chart review, at renal function baseline Avoid nephrotoxic medications as appropriate Continue IVF as needed Postvoid ordered Trend with labs Chronic right hydronephrosis Ongoing issue since she is a teenager Noted history of nephrostomy and stent placement Urology consult as above Defer any further workup to specialist No further intervention recommended inpatient per urology at this time F/u outpatient IDDM with neuropathy: Uncontrolled Repeat A1c 8.5 Glucose controlled on sliding scale Home insulin with Humalog 70 units a.m., 60 units nightly Hold for now, resume as appropriate Mild SSI with Accu-Cheks Trend Accu-Cheks per protocol F/u with PCP Co morbidities contributing to higher complexity of care: Right eye blind HLD Obesity Left toe amputation Findings that require further workup: Follow-up with urology, PCP Consults: ID and urology Significant Diagnostic Studies: Recent Results (from the past 24 hours) POCT glucose Collection Time: 12/01/23 11:28 AM Result Value Ref Range GLUCOSE POC 122 (H) 70 - 99 mg/dL POCT glucose Collection Time: 12/01/23 5:22 PM Result Value Ref Range GLUCOSE POC 178 (H) 70 - 99 mg/dL POCT glucose Collection Time: 12/01/23 8:08 PM Result Value Ref Range GLUCOSE POC 238 (H) 70 - 99 mg/dL BASIC METABOLIC PANEL Collection Time: 12/02/23 5:28 AM Result Value Ref Range GLUCOSE 106 (H) 70 - 99 MG/DL BUN 15 7 - 18 MG/DL CREATININE S/P/B 1.03 (H) 0.55 - 1.02 MG/DL SODIUM S/P/B 140 136 - 145 MMOL/L POTASSIUM S/P/B 3.7 3.5 - 5.1 MMOL/L CHLORIDE S/P/B 107 97 - 115 MMOL/L CO2 28.5 21 - 32 MMOL/L CALCIUM S/P/B 9.4 8.5 - 10.1 MG/DL ANION GAP 4.5 2 - 10 MMOL/L BUN CREATININE RATIO 14.6 6 - 26 GFR ESTIMATE 65 (L) >90 ML/MIN/1.73 M2 CBC W/DIFF AUTOMATED Collection Time: 12/02/23 5:28 AM Result Value Ref Range WBC 8.65 4.5 - 11.0 x10'3/uL RBC 3.60 (L) 4.20 - 5.40 x10'6/uL HGB 10.8 (L) 12.0 - 16.0 G/DL HCT 32.3 (L) 38.0 - 48.0 % MCV 89.7 81.0 - 99.0 FL MCH 30.0 27.0 - 31.0 PG MCHC 33.4 32.0 - 36.0 G/DL RDW 12.8 11.5 - 14.5 % PLT 250 130 - 400 x10'3/uL MPV 11.3 9.3 - 12.2 FL DIFFERENTIAL TYPE AUTOMATED DIFFERENTIAL NEUTROPHILS % 60.9 % LYMPHOCYTES % 30.4 % MONOCYTES % 5.7 % EOSINOPHILS 2.3 % BASOPHILS 0.5 % IMMATURE GRANS % 0.2 % ABS. NEUTROPHILS 5.27 1.80 - 7.70 x10'3/uL ABS. LYMPHOCYTES 2.63 1.00 - 4.80 x10'3/uL ABS. MONOCYTES 0.49 0.24 - 0.86 x10'3/uL ABS. EOSINOPHILS 0.20 0.04 - 0.36 x10'3/uL ABS. BASOPHILS 0.04 0.01 - 0.08 x10'3/uL ABS. IMMATURE GRANULOCYTES 0.02 0.00 - 0.49 x10'3/uL Radiology Reports : .Radiology Results (Last 30 days) 11/29/[address] ABD+PEL W CON Final result Impression: IMPRESSION: 1. Essentially unchanged appearance of chronic right hydronephrosis, with suggestion of obstruction at the UPJ. Suggestion of nonspecific inflammatory change in right renal pelvis, possibly infectious. No evidence of acute pyelonephritis. 2. Redemonstration of multiple bilateral nonobstructing renal calculi. 3. Other chronic/nonurgent findings, as above. Referred By: Interpreted By: Jeromy Massey MD, 11/29/2023 1:40 AM Discharge Exam: Filed Vitals: 12/01/23 1939 12/02/23 0025 12/02/23 0443 12/02/23 0748 BP: (!) 145/75 123/72 (!) 141/74 136/76 Pulse: 92 81 85 87 Resp: 18 16 18 19 Temp: 98.4 ??F (36.9 ??C) 98.1 ??F (36.7 ??C) 97.5 ??F (36.4 ??C) 98.1 ??F (36.7 ??C) TempSrc: Oral Oral Oral Oral SpO2: 100% 100% 100% 98% Weight: Height: Physical Exam Constitutional: General: She is not in acute distress. Appearance: She is obese. HENT: Head: Normocephalic and atraumatic. Eyes: Conjunctiva/sclera: Conjunctivae normal. Cardiovascular: Rate and Rhythm: Normal rate and regular rhythm. Heart sounds: Normal heart sounds. Pulmonary: Effort: Pulmonary effort is normal. No respiratory distress. Breath sounds: Normal breath sounds. Abdominal: General: Bowel sounds are normal. There is no distension. Palpations: Abdomen is soft. Tenderness: There is no abdominal tenderness. Musculoskeletal: General: No swelling. Normal range of motion. Cervical back: Neck supple. Skin: General: Skin is warm and dry. Findings: No erythema. Neurological: Mental Status: She is alert and oriented to person, place, and time. Psychiatric: Mood and Affect: Mood and affect normal. Discharge Medications: Medication List START taking these medications Morning Afternoon Evening Bedtime As Needed linezolid 600 MG tablet Commonly known as: ZYVOX Take 1 tablet (600 mg total) by mouth every 12 (twelve) hours for 10 days. Last time this was given: 600 mg on December 02, 2023 8:32 AM Signed by: Eirn Peck Last time this was given: December 02, 2023 8:32 AM 1 tablet 1 tablet CONTINUE taking these medications Morning Afternoon Evening Bedtime As Needed Accu-Chek Cierra Plus test strip 1 strip by Other route 2 (two) times daily. Use as instructed Signed by: Dr. Yasmin Segura Generic drug: Glucose Blood 1 strip 1 strip amLODIPine 10 MG tablet Commonly known as: NORVASC Take 1 tablet (10 mg total) by mouth nightly at bedtime. Last time this was given: 10 mg on December 01, 2023 8:36 PM Signed by: Dr. Yasmin Segura Last time this was given: December 01, 2023 8:36 PM 1 tablet calcium carbonate 500 MG chewable tablet Commonly known as: TUMS Chew 1 tablet (500 mg total) by mouth 2 (two) times daily as needed. Signed by: Dr. Ysabel Perkins 1 tablet cyclobenzaprine 10 MG tablet Commonly known as: FLEXERIL Take 1 tablet (10 mg total) by mouth 3 (three) times daily as needed for Muscle Spasms. Signed by: Dr. Yasmin Segura 1 tablet doxycycline hyclate 50 MG capsule Commonly known as: VIBRAMYCIN Take 1 capsule (50 mg total) by mouth daily. Take 1 capsule (50 mg total) by mouth daily. HumaLOG Mix 75/25 (75-25) 100 UNIT/ML Susp INJECT 65 UNITS SUBCUTANEOUSLY IN THE MORNING AND 55 IN THE EVENING Signed by: Dr. Stuart Rader Generic drug: insulin lispro protamine-insulin lispro INJECT 65 UNITS SUBCUTANEOUSLY IN THE MORNING AND 55 IN THE EVENING HYDROcodone-acetaminophen 5-325 MG tablet Commonly known as: NORCO Take 1 tablet by mouth every 4 (four) hours as needed. 1 tablet INSULIN SYRINGE 1CC/30GX5/16 30G X 5/16 1 ML Misc Use as directed to inject insulin twice a day. Signed by: Dr. Yasmin Segura Use as directed to inject insulin twice a day. linaCLOtide 145 MCG capsule Commonly known as: LINZESS Take 1 capsule (145 mcg total) by mouth every morning before breakfast. Take on empty stomach at least 30 minutes prior to the first meal of the day. Swallow whole. Do not open capsule or chew. Last time this was given: 145 mcg on November 30, 2023 6:31 AM Signed by: Dr. Yasmin Segura Last time this was given: November 30, 2023 6:31 AM 1 capsule lisinopril 20 MG tablet Commonly known as: PRINIVIL Take 1 tablet (20 mg total) by mouth every evening. Indications: hypertension Signed by: Dr. Yasmin Segura 1 tablet omeprazole 20 MG capsule Commonly known as: PriLOSEC Take 1 capsule (20 mg total) by mouth daily as needed. 1 capsule ondansetron 4 MG disintegrating tablet Commonly known as: ZOFRAN-ODT Take 1 tablet (4 mg total) by mouth every 6 (six) hours as needed for Nausea. Last time this was given: Ask your nurse or doctor Signed by: Dr. Ysabel Perkins Last time this was given: Ask your nurse or doctor 1 tablet oxybutynin 5 MG tablet Commonly known as: DITROPAN Take 1 tablet (5 mg total) by mouth 3 (three) times daily as needed (pain). 1 tablet semaglutide 2 MG/3ML injection (PEN) Commonly known as: OZEMPIC Inject 0.5 mg into the skin every 7 days. Indications: Diabetes Signed by: Dr. Yasmin Segura Inject 0.5 mg into the skin every 7 days. Indications: Diabetes simvastatin 40 MG tablet Commonly known as: ZOCOR Take 1 tablet (40 mg total) by mouth nightly at bedtime. Signed by: Dr. Yasmin Segura 1 tablet traMADol 50 MG tablet Commonly known as: ULTRAM Take 1 tablet (50 mg total) by mouth every 6 (six) hours as needed. 1 tablet Tretinoin (Emollient) 0.05 % Crea Apply 1 Application topically nightly at bedtime. Last time this was given: Ask your nurse or doctor Last time this was given: Ask your nurse or doctor 1 Application triamcinolone 0.1 % cream Commonly known as: KENALOG Apply topically 2 (two) times daily. Signed by: Dr. Yasmin Segura Apply topically 2 (two) times daily. 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 200 each 3 4 linaCLOtide (LINZESS) 145 MCG capsuleIndications: Chronic [...] 453.6 g 1 4 Glucose Blood (ACCU-CHEK CIERRA PLUS) test stripIndications:Ty pe 2 diabetes mellitus with diabetic neuropathic arthropathy, with long-term current use of insulin ([facility] HHS/HCC) 1 strip by Other route 2 (two) times daily. Use as instructed 200 strip 3 3 02/26/19 25 HUMALOG MIX 75/25 (75-25) 100 UNIT/ML SuspensionIndicatio ns:Type 2 diabetes mellitus with retinopathy, with long-term current use of insulin, macular edema presence unspecified, unspecified laterality, unspecified retinopathy severity ([facility] HHS/HCC) INJECT 65 UNITS SUBCUTANEOUSLY IN THE MORNING AND 55 IN THE EVENING 40 mL 3 4 01/22/20 24 linezolid (ZYVOX) 600 MG tablet Take 1 tablet (600 mg total) by mouth every 12 (twelve) hours for 10 days. 20 tablet 4 12/12/19 24 semaglutide (OZEMPIC) 2 MG/3ML injection (PEN)Indications:Di abetes Mellitus Inject 0.5 mg into the skin every 7 days. Indications: Diabetes 3 mL 5 4 12/13/19 24 documented as of this encounter Progress Notes * Douglas Toth MD - 12/02/2023 10:41 AM CDT Medical Necessity Recommendation Patient Name: Lena Mcneal Admit Date:11/28/2023 Age/Gender: 53-year-old/female Attending Physician: No att. providers found Physician Advisor: DOUGLAS TOTH MD Current admit order: Inpatient Type of review: Second level review complete Recommendation Summary 12/06/2023 : Recommendation: Observation Recommendations for 12/06/2023 Supporting Clinical Factors: Requested for peer to peer however on review patient only meets for observation level of care, switch to second level review. Patient has a known history of recurrent UTIs, chronic right sided hydronephrosis. Initial review MCG was used thinking this right-sided hydronephrosis was caused by obstruction and was new, however after admission on 11/29/2023 was seen by urology who stated this is a chronic finding, noted stablecalcifications but no appreciated urinary tract stones and recommended no further urological workupand signed off the same day. Patient has a known history of recurrent UTIs with Enterococcus susceptible to oral options, patient was kept in the hospital awaiting urine culture which showed the same Enterococcus susceptible to oral options and discharged on oral linezolid. The Attending Physician Concern: Recurrent UTIs, chronic right-sided hydronephrosis Rationale: Initial MCG was based on the thought the right sided hydronephrosis was new and caused by obstruction, was seen by urology on day of admission and determined to be chronic, urology signed off. Plan of Care Includes: P.o. antibiotics to treat UTI. * Jasper Coronel RN - 12/02/2023 5:55 AM CDT Problem: Reduced risk for falls/injury Goal: Reduced Risk for Falls/Injury Outcome: Progressing Goal: Reduced Risk of Confusion (Acute vs Chronic) Outcome: Progressing Goal: Reduced Risk of Symptomatic Depression Outcome: Progressing Goal: Reduced Risk of Altered Elimination Outcome: Progressing Goal: Reduced Risk of Dizziness/Vertigo/Balance Outcome: Progressing Goal: Reduced Risk of Polypharmacy Outcome: Progressing Problem: Infection - Risk of, Central Venous Catheter-Associated Bloodstream Infection Goal: Absence of Central Venous Catheter Associated Bloodstream Infection Signs and Symptoms Outcome: Progressing * June Jane RN - 12/01/2023 3:25 PM CDT Patient had no complaints of pain this shift. All needs met. All questions answered. * Erin Peck PA-C - 12/01/2023 2:08 PM CDT Hospitalist Daily Progress Note Subjective Lena Mcneal is a 53-year-old female on hospital day 2 No acute events overnight. Patient reports back pain and abdominal discomfort have been improving slowly.Feels better than she did on admission. Urine culture revealing Enterococcus as previous. Patient seen and examined, notes were reviewed Medication amLODIPine 10 mg Oral Nightly at bedtime atorvastatin 20 mg Oral Nightly at bedtime cetirizine 10 mg Oral Daily heparin (porcine) 5,000 Units Subcutaneous 2 times per day insulin aspart protamine-insulin aspart 70 Units Subcutaneous QAM And insulin aspart protamine-insulin aspart 60 Units Subcutaneous QPM insulin lispro 0-14 Units Subcutaneous TID AC And insulin lispro 0-7 Units Subcutaneous Nightly at bedtime linaCLOtide 145 mcg Oral QAM AC pantoprazole EC 20 mg Oral Daily polyethylene glycol 17 g Oral Daily solifenacin 5 mg Oral Daily tretinoin 1 Application Apply externally Nightly at bedtime vancomycin 1,750 mg Intravenous Q24H vancomycin pharmacy to dose Intravenous See Admin Instructions PRN Meds: acetaminophen, cyclobenzaprine, dextrose 10 % bolus, docusate sodium, glucagon, glucose, hydrALAZINE, HYDROcodone-acetaminophen, HYDROmorphone, naLOXone, ondansetron Objective PHYSICAL EXAMINATION: Vital 24 Hour Range Most Recent Value Temperature Temp Min: 98.1 ??F (36.7 ??C) Max: 98.6 ??F (37 ??C) 98.1 ??F (36.7 ??C) Pulse Pulse Min: 87 Max: 100 89 Respiratory Resp Min: 16 Max: 21 19 Blood Pressure BP Min: 123/66 Max: 170/78 (!) 161/83 Pulse Oximetry SpO2 Min: 95 % Max: 100 % 97 % O2 No data recorded Vital Most Recent Value First Value Weight 92.5 kg (203 lb 14.8 oz) Weight: 90.3 kg (199 lb) Height 167.6 cm (5' 6 ) Height: 167.6 cm (5' 6 ) BMI (!) 32.93 N/A Estimated body mass index is 32.91 kg/m?? as calculated from the following: Height as of this encounter: 1.676 m (5' 6 ). Weight as of this encounter: 92.5 kg (203 lb 14.8 oz). Physical Exam Vitals and nursing note reviewed. Constitutional: Appearance: Normal appearance. HENT: Head: Normocephalic and atraumatic. Eyes: Extraocular Movements: Extraocular movements intact. Conjunctiva/sclera: Conjunctivae normal. Pupils: Pupils are equal, round, and reactive to light. Cardiovascular: Rate and Rhythm: Normal rate. Pulmonary: Effort: Pulmonary effort is normal. Abdominal: General: There is no distension. Musculoskeletal: Right lower leg: No edema. Left lower leg: No edema. Skin: General: Skin is warm. Neurological: General: No focal deficit present. Mental Status: She is alert. Psychiatric: Mood and Affect: Mood normal. Intake/Output last 3 shifts: No intake/output data recorded. Labs: Recent Results (from the past 24 hour(s)) POCT glucose Collection Time: 11/30/23 3:47 PM Result Value Ref Range GLUCOSE POC 205 (H) 70 - 99 mg/dL BASIC METABOLIC PANEL Collection Time: 11/30/23 6:10 PM Result Value Ref Range GLUCOSE 242 (H) 70 - 99 MG/DL BUN 15 7 - 18 MG/DL CREATININE S/P/B 1.13 (H) 0.55 - 1.02 MG/DL SODIUM S/P/B 138 136 - 145 MMOL/L POTASSIUM S/P/B 3.8 3.5 - 5.1 MMOL/L CHLORIDE S/P/B 106 97 - 115 MMOL/L CO2 27.5 21 - 32 MMOL/L CALCIUM S/P/B 8.8 8.5 - 10.1 MG/DL ANION GAP 4.5 2 - 10 MMOL/L BUN CREATININE RATIO 13.3 6 - 26 GFR ESTIMATE 59 (L) >90 ML/MIN/1.73 M2 CBC W/DIFF AUTOMATED Collection Time: 11/30/23 6:10 PM Result Value Ref Range WBC 8.83 4.5 - 11.0 x10'3/uL RBC 3.68 (L) 4.20 - 5.40 x10'6/uL HGB 11.1 (L) 12.0 - 16.0 G/DL HCT 32.8 (L) 38.0 - 48.0 % MCV 89.1 81.0 - 99.0 FL MCH 30.2 27.0 - 31.0 PG MCHC 33.8 32.0 - 36.0 G/DL RDW 12.9 11.5 - 14.5 % PLT 254 130 - 400 x10'3/uL MPV 11.1 9.3 - 12.2 FL DIFFERENTIAL TYPE AUTOMATED DIFFERENTIAL NEUTROPHILS % 59.9 % LYMPHOCYTES % 32.3 % MONOCYTES % 5.5 % EOSINOPHILS 1.4 % BASOPHILS 0.6 % IMMATURE GRANS % 0.3 % ABS. NEUTROPHILS 5.29 1.80 - 7.70 x10'3/uL ABS. LYMPHOCYTES 2.85 1.00 - 4.80 x10'3/uL ABS. MONOCYTES 0.49 0.24 - 0.86 x10'3/uL ABS. EOSINOPHILS 0.12 0.04 - 0.36 x10'3/uL ABS. BASOPHILS 0.05 0.01 - 0.08 x10'3/uL ABS. IMMATURE GRANULOCYTES 0.03 0.00 - 0.49 x10'3/uL POCT glucose Collection Time: 11/30/23 7:45 PM Result Value Ref Range GLUCOSE POC 219 (H) 70 - 99 mg/dL BASIC METABOLIC PANEL Collection Time: 12/01/23 5:43 AM Result Value Ref Range GLUCOSE 173 (H) 70 - 99 MG/DL BUN 15 7 - 18 MG/DL CREATININE S/P/B 0.90 0.55 - 1.02 MG/DL SODIUM S/P/B 139 136 - 145 MMOL/L POTASSIUM S/P/B 3.8 3.5 - 5.1 MMOL/L CHLORIDE S/P/B 107 97 - 115 MMOL/L CO2 29.3 21 - 32 MMOL/L CALCIUM S/P/B 8.7 8.5 - 10.1 MG/DL ANION GAP 2.7 2 - 10 MMOL/L BUN CREATININE RATIO 16.7 6 - 26 GFR ESTIMATE 77 (L) >90 ML/MIN/1.73 M2 CBC W/DIFF AUTOMATED Collection Time: 12/01/23 5:43 AM Result Value Ref Range WBC 7.83 4.5 - 11.0 x10'3/uL RBC 3.63 (L) 4.20 - 5.40 x10'6/uL HGB 10.8 (L) 12.0 - 16.0 G/DL HCT 32.4 (L) 38.0 - 48.0 % MCV 89.3 81.0 - 99.0 FL MCH 29.8 27.0 - 31.0 PG MCHC 33.3 32.0 - 36.0 G/DL RDW 12.8 11.5 - 14.5 % PLT 248 130 - 400 x10'3/uL MPV 11.4 9.3 - 12.2 FL DIFFERENTIAL TYPE AUTOMATED DIFFERENTIAL NEUTROPHILS % 56.7 % LYMPHOCYTES % 35.2 % MONOCYTES % 5.7 % EOSINOPHILS 1.5 % BASOPHILS 0.6 % IMMATURE GRANS % 0.3 % ABS. NEUTROPHILS 4.43 1.80 - 7.70 x10'3/uL ABS. LYMPHOCYTES 2.76 1.00 - 4.80 x10'3/uL ABS. MONOCYTES 0.45 0.24 - 0.86 x10'3/uL ABS. EOSINOPHILS 0.12 0.04 - 0.36 x10'3/uL ABS. BASOPHILS 0.05 0.01 - 0.08 x10'3/uL ABS. IMMATURE GRANULOCYTES 0.02 0.00 - 0.49 x10'3/uL Vancomycin Random Level Collection Time: 12/01/23 5:43 AM Result Value Ref Range VANCOMYCIN RANDOM 6.2 MCG/ML VANCOMYCIN UNKNOWN LAST DOSE POCT glucose Collection Time: 12/01/23 8:16 AM Result Value Ref Range GLUCOSE POC 170 (H) 70 - 99 mg/dL POCT glucose Collection Time: 12/01/23 11:28 AM Result Value Ref Range GLUCOSE POC 122 (H) 70 - 99 mg/dL Imagining & Other Studies Radiology Results (Last 30 days) 11/29/23 0133 CT ABD+PEL W CON Final result Impression: IMPRESSION: 1. Essentially unchanged appearance of chronic right hydronephrosis, with suggestion of obstruction at the UPJ. Suggestion of nonspecific inflammatory change in right renal pelvis, possibly infectious. No evidence of acute pyelonephritis. 2. Redemonstration of multiple bilateral nonobstructing renal calculi. 3. Other chronic/nonurgent findings, as above. Referred By: Interpreted By: Jeromy Massey MD, 11/29/2023 1:40 AM No results found for this visit on 11/28/23. Assessment & Plan Problem List Items Addressed This Visit * (Principal) UTI (urinary tract infection) - Primary Relevant Orders Pharmacy to dose vancomycin Inpatient Consult to Urology ABENA (Completed) Inpatient Consult to Infectious Diseases ABENA Other Visit Diagnoses Pyelitis Dysuria Hx of recurrent UTI: Per chart review recurrent history of UTI, pyelonephritis Follows closely with ID at [facility]; see chart review Previous urine Cx 11/20 Enterococcus, suspected colonization per ID note Failed treatment with linezolid in the past Continue with vancomycin due to allergies Urology consulted. Appreciate recs -no further intervention recommended at this time Supportive care Repeat urine culture revealing Enterococcus as previous cultures Suspect colonization, consult ID for further recs CKD stage III Per chart review, at renal function baseline Avoid nephrotoxic medications as appropriate Continue IVF as needed Postvoid ordered Trend with labs Chronic right hydronephrosis Ongoing issue since she is a teenager Noted history of nephrostomy and stent placement Urology consult as above Defer any further workup to specialist No further intervention recommended inpatient per urology at this time IDDM with neuropathy: Uncontrolled Repeat A1c 8.5 Glucose controlled on sliding scale Home insulin with Humalog 70 units a.m., 60 units nightly Hold for now, resume as appropriate Mild SSI with Accu-Cheks Trend Accu-Cheks per protocol Co morbidities contributing to higher complexity of care: Right eye blind HLD Obesity Left toe amputation Social Determinants of Health: None known as of 12/01/2023 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 They are agreeable with plan and voiced understanding. This note was dictated with [employer] medical dictation software; misspellings, punctuation errors, omitted words or dictation variances may occur. ERIN PECK PA-C 12/01/2023 2:08 PM Primary care physician: YASMIN SEGURA MD Extended Emergency Contact Information Primary Emergency Contact: HONORIO MAC [place] Relation: Daughter Secondary Emergency Contact: Ana Coronel [facility] [place] Relation: Mother Cosigned by Troy Huertas MD at 12/01/2023 3:19 PM CDT * Yasmin Zuniga, PharmD, [facility] - 12/01/2023 6:43 AM CDT Vancomycin Pharmacy to Dose Day #3 Ordering Provider: Jason Indication: UTI AUC goal: 400 - 600 Ht/Wt: 167.6 cm, 90.3 kg Individualized trough goal: 10.6 - 14.6 mcg/mL Date WBC SCr CrCl Tmax Level 11/28 9.99 1.18 63 96.9 11/29 - - - 98.6 11/30 7.8 0.9 83.8 98.6 6.2 Other Antibiotics: - none at this time Cultures/Tests: - Blood (11/28): pending - Urine (11/27): pending - CT abd/pelv with contrast (11/28): 1. Essentially unchanged appearance of chronic right hydronephrosis, with suggestion of obstruction at the UPJ. Suggestion of nonspecific inflammatory change in right renal pelvis, possibly infectious. No evidence of acute pyelonephritis. 2. Redemonstration of multiple bilateral nonobstructing renal calculi. 3. Other chronic/nonurgent findings, as above. Kinetics Assessment: Regimen: 1750 mg IV every 24 hours. Start time: 06:31 on 12/01/2023 Exposure target: AUC24 (range)400-600 mg/L.hr AUC24,ss: 460 mg/L.hr PAUC*: 81 % Ctrough,ss: 10.3 mg/L Pconc*: 1 % Tox.: 6 % A/P: Pharmacy was consulted to dose vancomycin for this patient's UTI by Dr. Godoy. Patient presents with dysuria with a history of frequent UTIs. Most recent outpatient urine culture from 11/21/23 positive for enterococcus faecalis susceptible to vancomycin, nitrofurantoin, and ampicillin. Vancomycin was initiated with a 2000 mg loading dose. WBC count and renal function have improved. The vancomycin level this morning is 6.2, this would correlate to an AUC of 397 which is slightly below goal. Will increase vancomycin to 1750mg every 24 hours. A follow up level has not been ordered at this time. * Jasper Coronel RN - 12/01/2023 4:56 AM CDT Problem: Reduced risk for falls/injury Goal: Reduced Risk for Falls/Injury Outcome: Progressing Goal: Reduced Risk of Confusion (Acute vs Chronic) Outcome: Progressing Goal: Reduced Risk of Symptomatic Depression Outcome: Progressing Goal: Reduced Risk of Altered Elimination Outcome: Progressing Goal: Reduced Risk of Dizziness/Vertigo/Balance Outcome: Progressing Goal: Reduced Risk of Polypharmacy Outcome: Progressing Problem: Infection - Risk of, Central Venous Catheter-Associated Bloodstream Infection Goal: Absence of Central Venous Catheter Associated Bloodstream Infection Signs and Symptoms Outcome: Progressing * Shana Martinez OIL DISPENSER - 11/30/2023 3:08 PM CDT 11/29 Continues on IV antibiotics, possible ID consult cw * Shana Martinez OIL DISPENSER - 11/30/2023 3:07 PM CDT IV antibiotics, possible ID consult 11/30/23 3087 Interdisciplinary Group Conference Team Members Present Physician;Case/Care management;Nursing;PT/OT;Pharmacy Physician present for group conference Arlene Conley PA-C Patient Current Status Paient current status Inpatient Barriers to Discharge Inpatient Review Barriers to Discharge Inpatient Other (Comment) Other follow up (Comment) IV antibiotics, possible ID consult Patient expects to be discharged to Patient expects to be discharged to: Home or Self care no new needs * Arlene Conley PA-C - 11/30/2023 1:07 PM CDT Request for Documentation Clarification Lena Ellis ; VISIT [id number] Query Response Sent: 11/30/23 13:06 CDT From: Arlene Conley PA-C Query question: Please clarify the diagnosis of ACUTE KIDNEY INJURY as documented in this record Provider response: Clinically undetermined Original Query Sent: 11/30/23 13:01 CDT From: Soham Holt RN, CCDS To: Arlene Conley PA-C By submitting this query, we are seeking further clarification of documentation to accurately reflect all conditions that you monitored, evaluated, treated, or that may have extended the hospitalization or utilization of additional resources for care. Chart review has indicated your clinical opinion is needed regarding the following diagnosis. Your response serves as your authenticated entry to the Legal Medical Record. The fact that a question isasked does not imply that any particular diagnosis is desired or expected. Please clarify the diagnosis of ACUTE KIDNEY INJURY as documented in this record * Acute kidney injury, as evidenced by * Acute kidney injury, Ruled Out * Clinically undetermined * Other Clinical Information H&P byNoam Messer at 11/29/2023 04:21 53-yof with pmh of recurrent UTI, chronic right hydronephrosis with ureter stenosis, diabetes, hypertension, dyslipidemia, presents to the ER with abdominal pain and dysuria UTI. Chronic R hydronephrosis HEMA vs CKD 3 Creatinine 1.18. This was 0.87 11/21/23 (Care everywhere) Monitor labs/intake/output/weights LR x1 Liter to start Consider urology consults vs outpt follow up CONSULT by Stuart Wong at 11/29/2023 16:53 Labs reviewed. Patient's creatinine appears to be at her baseline PROGRESS by Arlene Griffin at 11/29/2023 10:53 CKD stage III. Per chart review, at renal function baseline Creatinine - 11/29/2023 00:13 - 1.18*H GFR (Non-AA) - 11/29/2023 00:13 - 56*L Received: Lactated ringers infusion 100 mL/hr Continuous*IV Start:*11/29/23 0230*End:*11/29/23 1229 Historical labs (per EMR): Creatinine/GFR - 07/27/2023 - 1.11 60 Creatinine/GFR - 03/07/2023 - 1. * Shahla Kristan Webber, PharmD - 11/30/2023 1:06 PM CDT Vancomycin Pharmacy to Dose Day #2 Ordering Provider: Jason Indication: UTI Ht/Wt: 167.6 cm, 90.3 kg Initial drug level ordered: 11/29 with AM labs AUC goal: 400 - 600 Individualized trough goal: 10.6 - 14.6 mcg/mL Date WBC SCr CrCl Tmax Level 11/28 9.99 1.18 63 96.9 11/29 - - - 98.6 Other Antibiotics: - none at this time Cultures/Tests: - Blood (11/28): pending - Urine (11/27): pending - CT abd/pelv with contrast (11/28): 1. Essentially unchanged appearance of chronic right hydronephrosis, with suggestion of obstruction at the UPJ. Suggestion of nonspecific inflammatory change in right renal pelvis, possibly infectious. No evidence of acute pyelonephritis. 2. Redemonstration of multiple bilateral nonobstructing renal calculi. 3. Other chronic/nonurgent findings, as above. Kinetics Assessment: Loading dose: 2000 mg on 11/29/2023 at 02:33 Regimen: 1500 mg IV every 24 hours. Start time: 06:00 on 11/30/2023 Exposure target: AUC24 (range)400-600 mg/L.hr AUC24,ss: 491 mg/L.hr PAUC*: 83 % Ctrough,ss: 12.6 mg/L Pconc*: 8 % Tox.: 8 % A/P: Pharmacy was consulted to dose vancomycin for this patient's UTI by Dr. Godoy. Patient presents with dysuria with a history of frequent UTIs. Most recent outpatient urine culture from 11/21/23 positive for enterococcus faecalis susceptible to vancomycin, nitrofurantoin, and ampicillin. Vancomycin was initiated with a 2000 mg loading dose followed by 1500 mg q24h. Initial level is scheduled with AM labs on 11/29. Pharmacy will continue to follow and adjust accordingly. Thank you for the consult. 11/30/2023: Labs/results not yet obtained as of today. Since dose given this AM will not add on vanco level since it will be peak level. Will try to obtain level 11/30 with AM labs, urine culture pending. * Arlene Conley PA-C - 11/30/2023 10:40 AM CDT Hospitalist Daily Progress Note Subjective Lena Mcneal is a 53-year-old female on hospital day 1 No acute events overnight. Still with back pain and dysuria similar yesterday otherwise no acute complaints. Review of Systems Constitutional: Negative for chills, diaphoresis, fever and malaise/fatigue. HENT: Negative. Eyes: Negative for blurred vision and double vision. Respiratory: Negative for cough, sputum production, shortness of breath and wheezing. Cardiovascular: Negative for chest pain, palpitations, orthopnea and leg swelling. Gastrointestinal: Positive for abdominal pain. Negative for blood in stool, constipation, diarrhea,nausea and vomiting. Genitourinary: Positive for dysuria and urgency. Negative for frequency and hematuria. Musculoskeletal: Negative. Negative for falls. Skin: Negative. Neurological: Negative for dizziness, speech change, focal weakness and headaches. Psychiatric/Behavioral: Negative. All other systems reviewed and are negative. Patient seen and examined, notes were reviewed Medication amLODIPine 10 mg Oral Nightly at bedtime atorvastatin 20 mg Oral Nightly at bedtime cetirizine 10 mg Oral Daily heparin (porcine) 5,000 Units Subcutaneous 2 times per day insulin lispro 0-14 Units Subcutaneous TID AC And insulin lispro 0-7 Units Subcutaneous Nightly at bedtime linaCLOtide 145 mcg Oral QAM AC pantoprazole EC 20 mg Oral Daily polyethylene glycol 17 g Oral Daily solifenacin 5 mg Oral Daily tretinoin 1 Application Apply externally Nightly at bedtime vancomycin 750 mg Intravenous Q24H vancomycin pharmacy to dose Intravenous See Admin Instructions PRN Meds: acetaminophen, cyclobenzaprine, dextrose 10 % bolus, docusate sodium, glucagon, glucose, hydrALAZINE, HYDROcodone-acetaminophen, HYDROmorphone, naLOXone, ondansetron Objective PHYSICAL EXAMINATION: Vital 24 Hour Range Most Recent Value Temperature Temp Min: 97.3 ??F (36.3 ??C) Max: 98.4 ??F (36.9 ??C) 98.4 ??F (36.9 ??C) Pulse Pulse Min: 84 Max: 90 87 Respiratory Resp Min: 15 Max: 20 15 Blood Pressure BP Min: 136/72 Max: 175/93 136/72 Pulse Oximetry SpO2 Min: 95 % Max: 100 % 95 % O2 No data recorded Vital Most Recent Value First Value Weight 90.3 kg (199 lb) Weight: 90.3 kg (199 lb) Height 167.6 cm (5' 6 ) Height: 167.6 cm (5' 6 ) BMI (!) 32.13 N/A Estimated body mass index is 32.12 kg/m?? as calculated from the following: Height as of this encounter: 1.676 m (5' 6 ). Weight as of this encounter: 90.3 kg (199 lb). Physical Exam Vitals and nursing note reviewed. Constitutional: Appearance: Normal appearance. HENT: Head: Normocephalic and atraumatic. Eyes: Extraocular Movements: Extraocular movements intact. Conjunctiva/sclera: Conjunctivae normal. Pupils: Pupils are equal, round, and reactive to light. Cardiovascular: Rate and Rhythm: Normal rate. Pulmonary: Effort: Pulmonary effort is normal. Abdominal: General: There is no distension. Musculoskeletal: Right lower leg: No edema. Left lower leg: No edema. Skin: General: Skin is warm. Neurological: General: No focal deficit present. Mental Status: She is alert. Psychiatric: Mood and Affect: Mood normal. Intake/Output last 3 shifts: I/O last 3 completed shifts: In: 240 [P.O.:240] Out: - Labs: Recent Results (from the past 24 hour(s)) POCT glucose Collection Time: 11/29/23 11:48 AM Result Value Ref Range GLUCOSE POC 112 (H) 70 - 99 mg/dL POCT glucose Collection Time: 11/29/23 4:53 PM Result Value Ref Range GLUCOSE POC 158 (H) 70 - 99 mg/dL POCT glucose Collection Time: 11/29/23 7:51 PM Result Value Ref Range GLUCOSE POC 209 (H) 70 - 99 mg/dL POCT glucose Collection Time: 11/30/23 6:22 AM Result Value Ref Range GLUCOSE POC 168 (H) 70 - 99 mg/dL Imagining & Other Studies Radiology Results (Last 30 days) 11/29/[address] ABD+PEL W CON Final result Impression: IMPRESSION: 1. Essentially unchanged appearance of chronic right hydronephrosis, with suggestion of obstruction at the UPJ. Suggestion of nonspecific inflammatory change in right renal pelvis, possibly infectious. No evidence of acute pyelonephritis. 2. Redemonstration of multiple bilateral nonobstructing renal calculi. 3. Other chronic/nonurgent findings, as above. Referred By: Interpreted By: Jeromy Massey MD, 11/29/2023 1:40 AM No results found for this visit on 11/28/23. Assessment & Plan Problem List Items Addressed This Visit * (Principal) UTI (urinary tract infection) - Primary Relevant Orders Pharmacy to dose vancomycin Inpatient Consult to Urology ABENA (Completed) Other Visit Diagnoses Pyelitis Recurrent UTI: Per chart review recurrent history of UTI, pyelonephritis Follows closely with ID at [facility]; see chart review Previous urine Cx 11/20 Enterococcus, suspected colonization per ID note Failed treatment with linezolid in the past Continue with vancomycin due to allergies Repeat urine culture pending Consider ID consult pending culture Urology consulted. Appreciate recs Defer any further inpatient workup to specialist Supportive care Trend with urine cultures with urology recs CKD stage III Per chart review, at renal function baseline Avoid nephrotoxic medications as appropriate Continue IVF as needed Postvoid ordered Trend with labs Chronic right hydronephrosis Ongoing issue since she is a teenager Noted history of nephrostomy and stent placement Urology consult as above Defer any further workup to specialist IDDM with neuropathy: Uncontrolled Repeat A1c 8.5 Glucose controlled on sliding scale Home insulin with Humalog 70 units a.m., 60 units nightly Hold for now, resume as appropriate Mild SSI with Accu-Cheks Trend Accu-Cheks per protocol Co morbidities contributing to higher complexity of care: Right eye blind HLD Obesity Left toe amputation Social Determinants of Health: None known as of 11/30/2023 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 They are agreeable with plan and voiced understanding. This note was dictated with [employer] medical dictation software; misspellings, punctuation errors, omitted words or dictation variances may occur. ARLENE CONLEY PA-C 11/30/2023 10:41 AM Primary care physician: YASMIN SEGURA MD Extended Emergency Contact Information Primary Emergency Contact: HONORIO MAC [place] Relation: Daughter Secondary Emergency Contact: Ana Coronel [facility] [place] Relation: Mother Cosigned by Troy Huertas MD at 11/30/2023 12:19 PM CDT * Selina Ortega RN - 11/30/2023 8:16 AM CDT Problem: Reduced risk for falls/injury Goal: Reduced Risk for Falls/Injury Outcome: Progressing Goal: Reduced Risk of Confusion (Acute vs Chronic) Outcome: Progressing Goal: Reduced Risk of Symptomatic Depression Outcome: Progressing Goal: Reduced Risk of Altered Elimination Outcome: Progressing Goal: Reduced Risk of Dizziness/Vertigo/Balance Outcome: Progressing Goal: Reduced Risk of Polypharmacy Outcome: Progressing * Jasper Coronel RN - 11/30/2023 4:27 AM CDT Problem: Reduced risk for falls/injury Goal: Reduced Risk for Falls/Injury Outcome: Progressing Goal: Reduced Risk of Confusion (Acute vs Chronic) Outcome: Progressing Goal: Reduced Risk of Symptomatic Depression Outcome: Progressing Goal: Reduced Risk of Altered Elimination Outcome: Progressing Goal: Reduced Risk of Dizziness/Vertigo/Balance Outcome: Progressing Goal: Reduced Risk of Polypharmacy Outcome: Progressing * Ivon Amado RN - 11/29/2023 11:00 AM CDT 11/29/23 1100 Referral Data Source of Information Patient Patient Information Primary Caregiver Self Current living Situation Children Type of Residence Private residence Support System Immediate family Are you employed? Not Employed Recent Hospitalization Recent Hospitalization within 30 days No Legal Information Guardianship Documentation Not applicable Baseline ADL's Functional Status Moderate assistance (Daughter helps w/ showering, dressing, household tasks.) Active DME Walker;Wheelchair (WC for distances.) Behavior Oriented;Cooperative;Confused Communication Talks;Understands speaking;Understands Filipino Current Services Being Provided Outpt therapy (None.) Home Health Other (Comment) (Used [facility] in past. OK to use again.) DC screening tool This is a screening tool it does not take the place of a physical or occupational therapy evaluation. The screening is to screen the patient for what services and destination would be beneficial for patient for next level of care Conversation with the patient/family Will the patient be returning to prior living situation with no new identified needs? (Needs - TBD.) Adequate Resources Available Adequate Resources Yes [place] Only - Criminal Background check [place] only - Is patient going to senior care? No NCM performed bedside interview, verified patient's name and : Yes. Support: Daughter. Home: 2 story - stays on main level. Ambulation: Reports minimum assist prior to admission. DME products: Walker. WC (for distances). Medical Devices: None. ADLs: Reports minimum assist prior to admission. Transport Home: family/friend Skin/Bladder/Bowel: No deficits reported A/O: Patient is alert, oriented to person, place, time, and situation Communication: Patient can communicate without deficits. Home Health: None. Used [facility] in past. OK to use again. Occupation: Unemployed. Pharmacy: [facility]. Financial Concerns: No financial concerns reported PCP/Insurance Plan: Yasmin Segura II, MD/[facility]. Discharge needs: No known current DC needs. RNCM will follow case daily and will continuously evaluate discharge needs based on recommendations and treatment course. * Ivon Amado RN - 11/29/2023 11:00 AM CDT 11/29/23 1100 Interdisciplinary Group Conference Team Members Present Physician;Case/Care management;Nursing;Pharmacy;PT/OT Physician present for group conference Arlene Conley PA-C Patient Current Status Paient current status Inpatient Barriers to Discharge Inpatient Review Barriers to Discharge Inpatient Administering IV meds;No Barrier- Medical Milestone in Process Administering IV meds follow up IV vanc No Barrier- Medical Milestone in Process follow up Urology rec's and UCX pending. Patient expects to be discharged to Patient expects to be discharged to: Home or Self care no new needs * Arlene Conley PA-C - 11/29/2023 10:41 AM CDT Hospitalist Daily Progress Note Subjective Lena Mcneal is a 53-year-old female on hospital day 0 No acute events overnight. Still with back pain and dysuria but currently improved. Patient would like to establish care with a urologist closer to home. Otherwise no acute complaints at this time. Review of Systems Constitutional: Negative for chills, diaphoresis, fever and malaise/fatigue. HENT: Negative. Eyes: Negative for blurred vision and double vision. Respiratory: Negative for cough, sputum production, shortness of breath and wheezing. Cardiovascular: Negative for chest pain, palpitations, orthopnea and leg swelling. Gastrointestinal: Positive for abdominal pain and nausea. Negative for blood in stool, constipation, diarrhea and vomiting. Genitourinary: Positive for dysuria and urgency. Negative for frequency and hematuria. Musculoskeletal: Negative. Negative for falls. Skin: Negative. Neurological: Negative for dizziness, speech change, focal weakness and headaches. Psychiatric/Behavioral: Negative. All other systems reviewed and are negative. Patient seen and examined, notes were reviewed Medication cetirizine 10 mg Oral Daily heparin (porcine) 5,000 Units Subcutaneous 2 times per day insulin lispro 0-14 Units Subcutaneous TID AC And insulin lispro 0-7 Units Subcutaneous Nightly at bedtime [START ON 11/30/2023] vancomycin 750 mg Intravenous Q24H vancomycin pharmacy to dose Intravenous See Admin Instructions lactated ringers 100 mL/hr at 11/29/23 0506 PRN Meds: acetaminophen, dextrose 10 % bolus, docusate sodium, glucagon, glucose, HYDROcodone-acetaminophen, HYDROmorphone, naLOXone, ondansetron, polyethylene glycol Objective PHYSICAL EXAMINATION: Vital 24 Hour Range Most Recent Value Temperature Temp Min: 96.9 ??F (36.1 ??C) Max: 98.1 ??F (36.7 ??C) 98.1 ??F (36.7 ??C) Pulse Pulse Min: 85 Max: 92 85 Respiratory Resp Min: 16 Max: 18 18 Blood Pressure BP Min: 149/80 Max: 179/79 (!) 149/80 Pulse Oximetry SpO2 Min: 98 % Max: 100 % 100 % O2 No data recorded Vital Most Recent Value First Value Weight 90.3 kg (199 lb) Weight: 90.3 kg (199 lb) Height 167.6 cm (5' 6 ) Height: 167.6 cm (5' 6 ) BMI (!) 32.13 N/A Estimated body mass index is 32.12 kg/m?? as calculated from the following: Height as of this encounter: 1.676 m (5' 6 ). Weight as of this encounter: 90.3 kg (199 lb). Physical Exam Vitals and nursing note reviewed. Constitutional: Appearance: Normal appearance. HENT: Head: Normocephalic and atraumatic. Eyes: Extraocular Movements: Extraocular movements intact. Conjunctiva/sclera: Conjunctivae normal. Pupils: Pupils are equal, round, and reactive to light. Cardiovascular: Rate and Rhythm: Normal rate. Pulmonary: Effort: Pulmonary effort is normal. Abdominal: General: There is no distension. Musculoskeletal: Right lower leg: No edema. Left lower leg: No edema. Skin: General: Skin is warm. Neurological: General: No focal deficit present. Mental Status: She is alert. Psychiatric: Mood and Affect: Mood normal. Intake/Output last 3 shifts: I/O last 3 completed shifts: In: 500 [IV Piggyback:500] Out: - Labs: Recent Results (from the past 24 hour(s)) URINALYSIS Collection Time: 11/28/23 10:35 PM Result Value Ref Range Specimen Type URINE CLEAN CATCH COLOR (U) YELLOW TRANSPARENCY TURBID SPECIFIC GRAVITY (U) 1.014 1.001 - 1.030 U PH 6.0 5.0 - 9.0 LEUKOCYTES (U) 500 (A) NEGATIVE NITRITES NEGATIVE NEGATIVE PROTEIN RANDOM (U) 200 (H) <30 MG/DL GLUCOSE (U) 50 (A) NORMAL MG/DL KETONES MG/DL (U) NEGATIVE NEGATIVE MG/DL UROBILINOGEN NORMAL NORMAL MG/DL BILIRUBIN (U) NEGATIVE NEGATIVE MG/DL BLOOD (U) 1+ (A) NEGATIVE WBC/HPF >100 (H) <6 /HPF RBC/HPF 10 (H) <6 /HPF BACTERIA (U) RARE (A) NONE /HPF SQUAMOUS EPITHELIALS MANY /HPF CBC W/DIFF AUTOMATED Collection Time: 11/29/23 12:13 AM Result Value Ref Range WBC 9.99 4.5 - 11.0 x10'3/uL RBC 4.30 4.20 - 5.40 x10'6/uL HGB 13.0 12.0 - 16.0 G/DL HCT 38.5 38.0 - 48.0 % MCV 89.5 81.0 - 99.0 FL MCH 30.2 27.0 - 31.0 PG MCHC 33.8 32.0 - 36.0 G/DL RDW 13.2 11.5 - 14.5 % PLT 290 130 - 400 x10'3/uL MPV 11.6 9.3 - 12.2 FL DIFFERENTIAL TYPE AUTOMATED DIFFERENTIAL NEUTROPHILS % 55.2 % LYMPHOCYTES % 38.3 % MONOCYTES % 3.8 % EOSINOPHILS 1.7 % BASOPHILS 0.7 % IMMATURE GRANS % 0.3 % ABS. NEUTROPHILS 5.51 1.80 - 7.70 x10'3/uL ABS. LYMPHOCYTES 3.83 1.00 - 4.80 x10'3/uL ABS. MONOCYTES 0.38 0.24 - 0.86 x10'3/uL ABS. EOSINOPHILS 0.17 0.04 - 0.36 x10'3/uL ABS. BASOPHILS 0.07 0.01 - 0.08 x10'3/uL ABS. IMMATURE GRANULOCYTES 0.03 0.00 - 0.49 x10'3/uL COMPREHENSIVE METABOLIC PANEL Collection Time: 11/29/23 12:13 AM Result Value Ref Range GLUCOSE 144 (H) 70 - 99 MG/DL BUN 17 7 - 18 MG/DL CREATININE S/P/B 1.18 (H) 0.55 - 1.02 MG/DL SODIUM S/P/B 140 136 - 145 MMOL/L POTASSIUM S/P/B 3.7 3.5 - 5.1 MMOL/L CHLORIDE S/P/B 105 97 - 115 MMOL/L CO2 29.7 21 - 32 MMOL/L CALCIUM S/P/B 9.4 8.5 - 10.1 MG/DL BILIRUBIN TOTAL S/P/B 0.3 0.2 - 1.2 MG/DL TOTAL PROTEIN S/P/B 9.3 (H) 6.4 - 8.2 G/DL ALBUMIN S/P/B 3.6 3.4 - 5.0 G/DL AST 20 15 - 37 U/L ALT 24 14 - 55 U/L ALKALINE PHOSPHATASE S/P/B 163 (H) 50 - 136 U/L ANION GAP 5.3 2 - 10 MMOL/L BUN CREATININE RATIO 14.4 6 - 26 A/G RATIO 0.6 (L) 1.0 - 2.0 RATIO GFR ESTIMATE 56 (L) >90 ML/MIN/1.73 M2 LIPASE Collection Time: 11/29/23 12:13 AM Result Value Ref Range LIPASE 32 13 - 75 UNITS/L LACTIC ACID W REFLEX (SEPSIS) Collection Time: 11/29/23 1:54 AM Result Value Ref Range LACTIC ACID VENOUS 1.1 0.4 - 2.0 MMOL/L CULTURE BACTERIA, BLOOD Collection Time: 11/29/23 2:28 AM Specimen: BLOOD Result Value Ref Range SPEC DESCRIPTION BLOOD SPECIAL REQUESTS NO SPECIAL REQUEST CULTURE RESULT NO GROWTH <24 HRS POCT glucose Collection Time: 11/29/23 3:17 AM Result Value Ref Range GLUCOSE POC 107 (H) 70 - 99 mg/dL POCT glucose Collection Time: 11/29/23 6:46 AM Result Value Ref Range GLUCOSE POC 120 (H) 70 - 99 mg/dL Imagining & Other Studies Radiology Results (Last 30 days) 11/29/[address] ABD+PEL W CON Final result Impression: IMPRESSION: 1. Essentially unchanged appearance of chronic right hydronephrosis, with suggestion of obstruction at the UPJ. Suggestion of nonspecific inflammatory change in right renal pelvis, possibly infectious. No evidence of acute pyelonephritis. 2. Redemonstration of multiple bilateral nonobstructing renal calculi. 3. Other chronic/nonurgent findings, as above. Referred By: Interpreted By: Jeromy Massey MD, 11/29/2023 1:40 AM No results found for this visit on 11/28/23. Assessment & Plan Problem List Items Addressed This Visit * (Principal) UTI (urinary tract infection) - Primary Relevant Orders Pharmacy to dose vancomycin Inpatient Consult to Urology ABENA Other Visit Diagnoses Pyelitis Recurrent UTI: Per chart review recurrent history of UTI, pyelonephritis Follows closely with ID at [facility]; see chart review Previous urine Cx 11/20 Enterococcus, suspected colonization per ID note Failed treatment with linezolid in the past Continue with vancomycin due to allergies Repeat urine culture pending Consider ID consult pending culture Urology consulted. Appreciate recs Defer any further inpatient workup to specialist Supportive care Trend with urine cultures with urology recs CKD stage III Per chart review, at renal function baseline Avoid nephrotoxic medications as appropriate Continue IVF as needed Postvoid ordered Trend with labs Chronic right hydronephrosis Ongoing issue since she is a teenager Noted history of nephrostomy and stent placement Urology consult as above Defer any further workup to specialist IDDM with neuropathy: Uncontrolled Repeat A1c 8.5 Glucose controlled on sliding scale Home insulin with Humalog 70 units a.m., 60 units nightly Hold for now, resume as appropriate Mild SSI with Accu-Cheks Trend Accu-Cheks per protocol Co morbidities contributing to higher complexity of care: Right eye blind HLD Obesity Left toe amputation Social Determinants of Health: None known as of 11/29/2023 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 They are agreeable with plan and voiced understanding. This note was dictated with [employer] medical dictation software; misspellings, punctuation errors, omitted words or dictation variances may occur. ARLENE CONLEY PA-C 11/29/2023 10:42 AM Primary care physician: YASMIN SEGURA MD Extended Emergency Contact Information Primary Emergency Contact: HONORIO MAC [place] Relation: Daughter Secondary Emergency Contact: Ana Coronel [facility] [place] Relation: Mother Cosigned by Troy Huertas MD at 11/29/2023 3:38 PM CDT * Selina Ortega RN - 11/29/2023 10:04 AM CDT Problem: Reduced risk for falls/injury Goal: Reduced Risk for Falls/Injury Outcome: Progressing Goal: Reduced Risk of Confusion (Acute vs Chronic) Outcome: Progressing Goal: Reduced Risk of Symptomatic Depression Outcome: Progressing Goal: Reduced Risk of Altered Elimination Outcome: Progressing Goal: Reduced Risk of Dizziness/Vertigo/Balance Outcome: Progressing Goal: Reduced Risk of Polypharmacy Outcome: Progressing * Kaylee Carmona PharmD - 11/29/2023 3:40 AM CDT Vancomycin Pharmacy to Dose Day #1 Ordering Provider: Jason Indication: UTI Ht/Wt: 167.6 cm, 90.3 kg Initial drug level ordered: 11/29 with AM labs AUC goal: 400 - 600 Individualized trough goal: 10.6 - 14.6 mcg/mL Date WBC SCr CrCl Tmax Level 11/28 9.99 1.18 63 96.9 Other Antibiotics: - none at this time Cultures/Tests: - Blood (11/28): pending - Urine (11/27): pending - CT abd/pelv with contrast (11/28): 1. Essentially unchanged appearance of chronic right hydronephrosis, with suggestion of obstruction at the UPJ. Suggestion of nonspecific inflammatory change in right renal pelvis, possibly infectious. No evidence of acute pyelonephritis. 2. Redemonstration of multiple bilateral nonobstructing renal calculi. 3. Other chronic/nonurgent findings, as above. Kinetics Assessment: Loading dose: 2000 mg on 11/29/2023 at 02:33 Regimen: 1500 mg IV every 24 hours. Start time: 06:00 on 11/30/2023 Exposure target: AUC24 (range)400-600 mg/L.hr AUC24,ss: 491 mg/L.hr PAUC*: 83 % Ctrough,ss: 12.6 mg/L Pconc*: 8 % Tox.: 8 % A/P: Pharmacy was consulted to dose vancomycin for this patient's UTI by Dr. Godoy. Patient presents with dysuria with a history of frequent UTIs. Most recent outpatient urine culture from 11/21/23 positive for enterococcus faecalis susceptible to vancomycin, nitrofurantoin, and ampicillin. Vancomycin was initiated with a 2000 mg loading dose followed by 1500 mg q24h. Initial level is scheduled with AM labs on 11/29. Pharmacy will continue to follow and adjust accordingly. Thank you for the consult. documented in this encounter H&P Notes * Noam Godoy MD - 11/29/2023 2:10 AM CDT ATTENDING: NOAM GODOY MD PRIMARY CARE PROVIDER: YASMIN SEGURA MD CC: Abdominal pain oh HPI: Patient seen and evaluated by this provider. History obtained via chart review, discussion with ER physician, patient, and review of outside records from previous admissions, care everywhere, PCP notes, etc. Lena Mcneal is a 53-year-old female with past medical history of recurrent UTI, chronic righthydronephrosis with ureter stenosis, diabetes, hypertension, dyslipidemia, presents to the ER with abdominal pain and dysuria. Patient has had issues with her kidneys all her life. She had surgery around age 17 for a stent placed and temporary nephrostomy tube for her right UPJ obstruction/stenosis. She went many years without any issues but then for the last 8 months has had recurrent UTIs. She has been on multiple courses of antibiotics. She saw infectious disease at [facility] earlier this month. Aurine culture was obtained which grew out Enterococcus faecalis. Per ID note it was felt she may becolonized. However she then developed back pain and dark urine. She had sweats but no known fever. No nausea, vomiting, diarrhea, hematuria, chest pain, shortness of breath etc. ID doc prescribed linezolid but it is unclear if pt had time to take this. However she was feeling worse so came to the emergency room for further evaluation and treatment. She was started on vancomycin given urine culture sensitivities and past allergies/intolerances. Of note patient states it has been several months since she has seen a urologist. Allergy Review of patient's allergies indicates: Allergen Reactions Ceftriaxone Rash Fish Oil Unknown Amoxicillin Rash Penicillins Rash Medication list (Not in a hospital admission) No current facility-administered medications on file prior to encounter. Current Outpatient Medications on File Prior to Encounter Medication Sig Dispense Refill amLODIPine (NORVASC) 10 [...] capsule (50 mg total) by mouth daily. fosfomycin (MONUROL) 3 g Pack Take 3 gm by mouth every other day for 3 doses. (Patient not taking: Reported on 09/26/2023) 3 each 0 Glucose Blood (ACCU-CHEK CEIRRA PLUS) test strip 1 strip by Other [...] 3 (three) times daily as needed (pain). oxyCODONE-acetaminophen (PERCOCET) 5-325 MG tablet Take 1 tablet by mouth every 8 (eight) hours as needed. (Patient not taking: Reported on 10/29/2023) semaglutide (OZEMPIC) 2 MG/3ML injection (PEN) Inject [...] 2 (two) times daily. 453.6 g 1 Past Medical History Past Medical History: Diagnosis Date Arthritis Charcot foot due to diabetes mellitus ([facility]) LEFT FOOT Constipation COVID-19 Diabetes mellitus ([facility]) Diabetic neuropathy ([facility]) Gastric ulcer High cholesterol Hypertension Kidney stone 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 UTI (urinary tract infection) Vision decreased blind right eye, poor vision left eye Past Surgical History: Procedure Laterality Date 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 SURGERY HYSTERECTOMY 2004, 2019 hysterectomy, cervical surgery RETINAL DETACHMENT SURGERY Right Social History Social History Socioeconomic History Marital status: Tobacco Use Smoking status: Never Smokeless tobacco: Never Vaping Use Vaping status: Never Used Substance and Sexual Activity Alcohol use: Not Currently Comment: few times per year Drug use: No Sexual activity: Not Currently Comment: unknown Other Topics Concern Caffeine Concern No Exercise No Seat Belt Yes Social History Narrative lives with and HHC. [...] min Stress: No Stress Concern Present (03/06/2023) [place] [employer] - Occupational Stress Questionnaire Feeling of Stress : Not at all Intimate Partner Violence: Not At Risk (03/06/2023) Humiliation, Afraid, Rape, and Kick questionnaire Fear of Current or Ex-Partner: No Emotionally Abused: No Physically Abused: No Sexually Abused: No Housing Stability: Low Risk (03/06/2023) Housing Stability Vital Sign Unable to Pay for Housing in the Last Year: No Number of Places Lived in the Last Year: 1 Unstable Housing in the Last Year: No Family History Family History Problem Relation Name Age of Onset Diabetes Mother Hypertension Mother Heart Attack Father Hypertension Father Stroke Sister Hypertension Sister Breast Cancer Other cousin 49 ROS: A 10 point review of systems was taken and pertinent positives and negatives as per HPI. All othersnegative save as noted in HPI. PHYSICAL EXAM: No intake or output data in the 24 hours ending 11/29/23 0416 Patient Vitals for the past 24 hrs: BP Temp Temp src Pulse Resp SpO2 Height Weight 11/29/23 0401 (!) 179/79 97.9 ??F (36.6 ??C) Oral 91 16 100 % -- -- 11/29/23 0300 (!) 158/77 -- -- -- -- 98 % -- -- 11/29/23 0251 -- -- -- -- -- 99 % -- -- 11/29/23 0245 -- -- -- -- -- 99 % -- -- 11/28/23 2223 (!) 170/80 96.9 ??F (36.1 ??C) Temporal 92 16 99 % 1.676 m (5' 6 ) 90.3 kg (199 lb) Intake/Output :[id number]@ Constitutional: Well developed, Well nourished, ill-appearing. Breathing comfortably on room air HENT: Normocephalic, Atraumatic, Bilateral external ears normal, Oropharynx mildly dry, Nose normal. Eyes: pupils equal. EOMI, No discharge. Neck- Normal range of motion, No stridor. Respiratory: Bilaterally clear to auscultation with no rales, rhonchi, or wheezes. Good aeration. No accessory muscle use. Cardiovascular: S1, S2 present, regular rate and rhythm. No murmurs, rubs, or gallops. No pedal edema. GI: Bowel sounds normal, Soft, suprapubic tenderness, No masses, No pulsatile masses. Musculoskeletal: Intact distal pulses, No edema, No tenderness Integument: Warm, Dry, No erythema, No rash. Neurologic: Alert & oriented x 3, Cranial nerves II-XII grossly intact. Moves all extremities, No focal deficits noted. Psychiatric: Affect normal, Judgment normal, Mood normal Labs: Recent Labs Lab 11/29/23 0013 WBC 9.99 RBC 4.30 HGB 13.0 HCT 38.5 MCV 89.5 MCH 30.2 MCHC 33.8 PLT 290 RDW 13.2 MPV 11.6 PERNEU 55.2 PERLYM 38.3 PERMON 3.8 NEUC 5.51 LYMC 3.83 MONOC 0.38 EOSC 0.17 BASOC 0.07 DTYPE AUTOMATED DIFFERENTIAL Recent Labs Lab 11/29/23 0013 NA 140 K 3.7 CL 105 CO2 29.7 AGAP 5.3 BUN 17 CR 1.18* BUNCREATININ 14.4 GLU 144* CA 9.4 TP 9.3* ALB 3.6 TBIL 0.3 ALKP 163* AST 20 ALT 24 No results for input(s): CHOL , TRI , HDL , LDL , HGBA1C , TSH in the last 168 hours. No results for input(s): APTT , INR , PTT in the last 168 hours. No results for input(s): TROP , TROPIWB , CKMB , CPK in the last 168 hours. Recent Labs Lab 11/29/23 0154 LACTICACID 1.1 No results for input(s): PH , PCO2 , PO2 , B8SZEMBEIAKS , BICARBWB , BASEDEFICIT , BASEEXCESS in the last 168 hours. Results for orders placed or performed during the hospital encounter of 08/11/19 URINALYSIS, AUTO, COMPLETE Result Value Ref Range Specimen Type URINE CLEAN CATCH COLOR (U) LIGHT YELLOW TRANSPARENCY CLEAR SPECIFIC GRAVITY (U) 1.024 1.001 - 1.030 U PH 5.5 5.0 - 9.0 LEUKOCYTES (U) NEGATIVE NEGATIVE NITRITES NEGATIVE NEGATIVE PROTEIN (U) 70 (H) <30 MG/DL URINE GLUCOSE 200 (A) NORMAL MG/DL KETONES MG/DL (U) NEGATIVE NEGATIVE MG/DL UROBILINOGEN NORMAL NORMAL MG/DL BILIRUBIN (U) NEGATIVE NEGATIVE MG/DL BLOOD (U) NEGATIVE NEGATIVE CULTURE & SENSITIVITY INDICATED? CULTURE IS NOT INDICATED MUCUS RARE /LPF WBC/HPF 1 <6 /HPF RBC/HPF 1 <6 /HPF BACTERIA (U) RARE (A) NONE /HPF SQUAMOUS EPITHELIALS RARE /HPF Imagining & Other Studies See official reports for full details CT abd/pelvis 11/29/23 Limited visualization of the lower thorax reveals no acute abnormality. Normal size liver. No suspicious hepatic lesion. Probable biliary sludge in gallbladder. Hepatic veins, main portal vein, splenic vein, SMV, and SMA enhance. Atherosclerosis of the abdominal and pelvic vasculature. No retroperitoneal lymphadenopathy. No evidence of bowel obstruction or inflammation. Normal appearing appendix. No free gas in the abdomen or pelvis. No mesenteric lymphadenopathy. Stomach and duodenum within normal limits. Normal size spleen. Incidental note of benign, calcifiedsplenic granulomata. Unchanged 0.7 cm hypoattenuating focus in along superior aspect of the spleen,possibly representing a benign simple cyst. Pancreas within normal limits. Adrenal glands within normal limits. Redemonstration of right hydronephrosis and cortical atrophy. Enhancement pattern in the right renal pelvis suggests inflammation. No renal cortical enhancement abnormality identified. Right ureter appears within normal limits. No left hydronephrosis or hydroureter. Redemonstration of bilateral nonobstructing renal calculi measuring up to 0.2 cm on the right and 0.2 cm on the left. Urinary bladder within normal limits for degree of distention. Hysterectomy. Incidental note of benign pelvic phleboliths. No pelvic lymphadenopathy or significant free fluid. 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 Chronic multilevel degenerative changes of the spine. Visualized body wall exhibits no acute abnormality. Impression: IMPRESSION: 1. Essentially unchanged appearance of chronic right hydronephrosis, with suggestion of obstructionat the UPJ. Suggestion of nonspecific inflammatory change in right renal pelvis, possibly infectious. No evidence of acute pyelonephritis. 2. Redemonstration of multiple bilateral nonobstructing renal calculi. 3. Other chronic/nonurgent findings, as above. Assessment & Plan Lena Mcneal is a 53-year-old female with PMH of recurrent UTI , is being admitted for UTI. I am concerned patient will clinically deteriorate without hospitalization and intervention as described below. I will admit to provide appropriate level of care and treatment to patient as well as continued evaluation. UTI Chronic R hydronephrosis No current sepsis Urine cx from 11/20 growing Enterococcus- possible colonization per ID note 11/21/23 Failed tx with linezolid Start vanc 03/23 allergies/sensitivities Urine cx pending Consider ID consult Consider urology consult vs outpt follow up HEMA vs CKD 3 Creatinine 1.18 This was 0.87 11/21/23 (Care everywhere) Monitor labs/intake/output/weights LR x1 Liter to start Consider urology consults vs outpt follow up Hypertension Elevated in ER likely due to pain, acute illness Resume home medicines once clarified IDDM With neuropathy, dyslipidemia A1c was 11.3% 07/2023 Repeat A1c pending SSI/hypoglycemic protocol Clarifying home insulin GERD Resume home meds once clarified Dyslipidemia Resume home meds once clarified - DVT prophylaxis: sc heparin - Diet : diabetic -IVF: LR @100 x 1 Liter - CODE:full The above plan of care was discussed with the patient in detail. An opportunity was provided for the patient/MPoA to ask questions regarding the hospital stay and plan of care. All questions were answered. The patient/MPoA understands and agrees. The patient was informed to ask the RN to contact meif any further questions or concerns. I have seen and examined the patient independently and anticipate patient will require a 3-4 day stay This note was dictated with the use of [employer] dictation software and was proofread to the best of my ability. If you have questions or find errors, please contact me via clinical communications. Thank you. NOAM GODOY MD 11/29/2023 4:16 AM documented in this encounter Procedure Notes * Shayy Babcock RN - 11/30/2023 6:12 PM CDT Consult for Picc line placement. Consent for procedure signed and verified. All questions answered.Timeout with Selina CARRERA at bedside. Pt was draped in sterile fashion. The right basilic vein was visualized using ultrasound. 3 ml of lidocaine was injected sub q into insertion area. A 21 gauge needle was used to cannulate and visualized in right basilic vein. Wire was advanced without resistance or difficulty. The introducer was advanced without complications. Wire was removed intact. Picc line was advanced without difficulty. Placement was verified with blood return and sherlock ECG technology. Report given to Selina CARRERA. See flowsheet for details of measurements. vocational technical education teacher was maintained throughout procedure. documented in this encounter Consult Notes * Sandra Alonzo MD - 12/01/2023 4:55 PM CDTSummary: ID Consult Images from the original note were not included. Patient was seen today utilizing telemedicine services. I introduced and identified myself, received verbal consent from the patient to proceed with this video visit and made the patient aware that the same confidentiality and information manager practices apply. Patient Location: [facility] 5TH FLOOR [facility] [address] Dept: [phone] Provider Location: Other location: Office Caregivers in attendance: Patient's primary RN Time spent with patient in minutes : 15 mins [place] [facility] Infectious Disease Consult Note Subjective REASON FOR CONSULT : dysuria, recurrent UTI, enterococcus in the urineAdel PHYSICIAN REQUESTING CONSULT : Erin Peck Chief Complaint: dysuria Assessment Enterococcus UTI Hx of recurrent UTIs - likely underlying prior surgeries with hx of having a nephrostomy in the past with stent and chronic hydronephrosis putting her at risk for recurrent infections. Question if urologically there needs to be further imaging Chronic hydronephrosis Plan - switched to Linezolid 600mg PO BID - if patient improves with her symptoms on linezolid, can continue therapy for 10 day course - ID signing off, please call for further questions/concerns HPI: Lena Mcneal is a 53-year-old female chronic right hydronephrosis s/p prior pyeloplasty x2, recurrent UTI, urolithiasis, diabetes with neuropathy, HTN, HLD for recurrent UTI. Patient had surgery around 17 for stent placed, temporary nephrostomy tube for her right UPJ obstruction/stenosis, went many years withotu any issues but last 8 months has had recurrent UTIs. Pt has been on multiple courses of abx. Saw ID at [facility] earlier this month. Ur cx had E. Faecalis. ID thoughtshe was colonized but patient continued to have back pain and dark urine. She had sweats. Burning urination for about 8 months. Each time she has different symptoms. Has had different antibiotics. No antibiotic would work. Low back and side pain. A little pressure now when she uses the bathroom. Right side is still bothering her. Urine is cloudy and looks like apple juice, dark and cloudy. Urine hasn't cleared up. Has taken nitrofurantoin previously. None of this worked for her previously. Pt has seen obgyn. Not seen a urogynecologist previously. No fevers or chills now. ALLERGY : Allergies Allergen Reactions Ceftriaxone Rash Fish Oil Unknown Amoxicillin Rash Penicillins Rash PAST MEDICAL HISTORY: Past Medical History: Diagnosis Date Arthritis Charcot foot due to diabetes mellitus ([facility]) LEFT FOOT Constipation COVID-19 Diabetes mellitus ([facility]) Diabetic neuropathy (CMS/HCC HHS/HCC) Gastric ulcer High [...] Other cousin 49 SOCIAL HISTORY: Social History Socioeconomic History Marital status: Spouse [...] min Stress: No Stress Concern Present (11/29/2023) [place] [employer] - Occupational Stress Questionnaire Feeling of Stress : Not at all Social Connections: Moderately Isolated (11/29/2023) Social Connection and Isolation Panel [NHANES] Frequency of Communication with Friends and Family: More than three times a week Frequency of Social Gatherings with Friends and Family: More than three times a week Attends Orthodoxy Services: Never Active Member of Clubs or [...] 1 Homeless in the Last Year: No Prior to Admission medications Medication Sig Start Date End Date Taking? Authorizing Provider amLODIPine (NORVASC) 10 MG tablet Take 1 tablet (10 mg total) by mouth nightly at bedtime. 06/15/23 Yes Yasmin Segura II, MD calcium carbonate (TUMS) 500 MG chewable tablet Chew 1 tablet (500 mg total) by mouth 2 (two) timesdaily as needed. 11/11/22 Yes Ysabel Perkins MD doxycycline hyclate (VIBRAMYCIN) 50 MG capsule Take 1 capsule (50 mg total) by mouth daily. 10/26/23 Yes Default History Genericprovider Glucose Blood (ACCU-CHEK CIERRA PLUS) test strip 1 strip by Other route 2 (two) times daily. Use as instructed 12/05/22 Yes Yasmin Segura II, MD HUMALOG MIX 75/25 (75-25) 100 UNIT/ML Suspension INJECT 65 UNITS SUBCUTANEOUSLY IN THE MORNING AND 55 IN THE EVENING Patient taking differently: 70 Q AM and 60 Q HS 07/26/23 Yes Stuart Rader MD Insulin Syringe-Needle U-100 (INSULIN SYRINGE 1CC/30GX5/16 ) 30G X 5/16 1 ML Misc Use as directed to inject insulin twice a day. 03/09/23 Yes Yasmin Segura II, MD linaCLOtide (LINZESS) 145 MCG capsule Take 1 capsule (145 mcg total) by mouth every morning before breakfast. Take on empty stomach at least 30 minutes prior to the first meal of the day. Swallow whole. Do not open capsule or chew. 06/15/23 Yes Yasmin Segura II, MD lisinopril (PRINIVIL) 20 MG tablet Take 1 tablet (20 mg total) by mouth every evening. Indications:hypertension 06/15/23 06/14/24 Yes Yasmin Segura II, MD semaglutide (OZEMPIC) 2 MG/3ML injection (PEN) Inject 0.5 mg into the skin every 7 days. Indications: Diabetes 10/29/23 Yes Yasmin Segura II, MD simvastatin (ZOCOR) 40 MG tablet Take 1 tablet (40 mg total) by mouth nightly at bedtime. 06/15/23 Yes Yasmin Segura II, MD Tretinoin, Facial Wrinkles, (TRETINOIN, EMOLLIENT,) 0.05 % Cream Apply 1 Application topically nightly at bedtime. Yes Default History Genericprovider triamcinolone (KENALOG) 0.1 % cream Apply topically 2 (two) times daily. 03/19/23 Yes Yasmin Segura II, MD cyclobenzaprine (FLEXERIL) 10 MG tablet Take 1 tablet (10 mg total) by mouth 3 (three) times daily as needed for Muscle Spasms. 06/15/23 Yasmin Segura II, MD fosfomycin (MONUROL) 3 g Pack Take 3 gm by mouth every other day for 3 doses. Patient not taking: Reported on 09/26/2023 08/16/23 Yasmin Segura II, MD HYDROcodone-acetaminophen (NORCO) 5-325 MG tablet Take 1 tablet by mouth every 4 (four) hours as needed. 07/27/23 Default History Genericprovider omeprazole (PRILOSEC) 20 MG capsule Take 1 [...] as needed (pain). 10/20/22 Default History Genericprovider oxyCODONE-acetaminophen (PERCOCET) 5-325 MG tablet Take 1 tablet by mouth every 8 (eight) hours as needed. Patient not taking: Reported on 10/29/2023 10/04/23 Default History Genericprovider traMADol (ULTRAM) 50 MG tablet Take 1 tablet (50 mg total) by mouth every 6 (six) hours as needed. 04/25/23 Default History Genericprovider REVIEW OF SYSTEM: ROS Objective Filed Vitals: 12/01/23 0028 12/01/23 0434 12/01/23 0817 12/01/23 1130 BP: 123/66 137/77 (!) 151/90 (!) 161/83 Pulse: 87 88 94 89 Resp: 16 16 18 19 Temp: 98.6 ??F (37 ??C) 98.1 ??F (36.7 ??C) 98.1 ??F (36.7 ??C) TempSrc: Oral Oral Oral Oral SpO2: 100% 99% 100% 97% Weight: 92.5 kg (203 lb 14.8 oz) Height: PHYSICAL EXAM: Physical Exam GEN - NAD sitting in chair comfortably HEENT - normocephalic Neuro - aaox3, speech intact Psych - normal mood Intake/Output 24H Total: Intake/Output Summary (Last 24 hours) at 12/01/2023 1656 Last data filed at 12/01/2023 1330 Gross per 24 hour Intake 880 ml Output -- Net 880 ml Medications amLODIPine 10 mg Oral Nightly at bedtime atorvastatin 20 mg Oral Nightly at bedtime cetirizine 10 mg Oral Daily heparin (porcine) 5,000 Units Subcutaneous 2 times per day insulin aspart protamine-insulin aspart 70 Units Subcutaneous QAM And insulin aspart protamine-insulin aspart 60 Units Subcutaneous QPM insulin lispro 0-14 Units Subcutaneous TID AC And insulin lispro 0-7 Units Subcutaneous Nightly at bedtime linaCLOtide 145 mcg Oral QAM AC pantoprazole EC 20 mg Oral Daily polyethylene glycol 17 g Oral Daily solifenacin 5 mg Oral Daily tretinoin 1 Application Apply externally Nightly at bedtime vancomycin 1,750 mg Intravenous Q24H vancomycin pharmacy to dose Intravenous See Admin Instructions acetaminophen, cyclobenzaprine, dextrose 10 % bolus, docusate sodium, glucagon, glucose, hydrALAZINE, HYDROcodone-acetaminophen, HYDROmorphone, naLOXone, ondansetron Labs: Recent Labs Lab 11/29/23 0013 11/30/23 1810 12/01/23 0543 WBC 9.99 8.83 7.83 RBC 4.30 3.68* 3.63* HGB 13.0 11.1* 10.8* HCT 38.5 32.8* 32.4* MCV 89.5 89.1 89.3 MCH 30.2 30.2 29.8 MCHC 33.8 33.8 33.3 PLT 290 254 248 RDW 13.2 12.9 12.8 MPV 11.6 11.1 11.4 PERNEU 55.2 59.9 56.7 PERLYM 38.3 32.3 35.2 PERMON 3.8 5.5 5.7 NEUC 5.51 5.29 4.43 LYMC 3.83 2.85 2.76 MONOC 0.38 0.49 0.45 EOSC 0.17 0.12 0.12 BASOC 0.07 0.05 0.05 DTYPE AUTOMATED DIFFERENTIAL AUTOMATED DIFFERENTIAL AUTOMATED DIFFERENTIAL Recent Labs Lab 11/29/23 0013 11/30/23 1810 12/01/23 0543 NA 140 138 139 K 3.7 3.8 3.8 CL 105 106 107 CO2 29.7 27.5 29.3 AGAP 5.3 4.5 2.7 BUN 17 15 15 CR 1.18* 1.13* 0.90 BUNCREATININ 14.4 13.3 16.7 GLU 144* 242* 173* CA 9.4 8.8 8.7 TP 9.3* -- -- ALB 3.6 -- -- TBIL 0.3 -- -- ALKP 163* -- -- AST 20 -- -- ALT 24 -- -- No results for input(s): CHOL , TRI , HDL , LDL , HGBA1C , TSH in the last 168 hours. No results for input(s): APTT , INR , PTT in the last 168 hours. Recent Labs Lab 11/29/23 0154 LACTICACID 1.1 No results for input(s): PH , PCO2 , PO2 , [id number] , BICARBWB , BASEDEFICIT , BASEEXCESS in the last 168 hours. Results for orders placed or performed during the hospital encounter of 08/11/19 URINALYSIS, AUTO, COMPLETE Result Value Ref Range Specimen Type URINE CLEAN CATCH COLOR (U) LIGHT YELLOW TRANSPARENCY CLEAR SPECIFIC GRAVITY (U) 1.024 1.001 - 1.030 U PH 5.5 5.0 - 9.0 LEUKOCYTES (U) NEGATIVE NEGATIVE NITRITES NEGATIVE NEGATIVE PROTEIN (U) 70 (H) <30 MG/DL URINE GLUCOSE 200 (A) NORMAL MG/DL KETONES MG/DL (U) NEGATIVE NEGATIVE MG/DL UROBILINOGEN NORMAL NORMAL MG/DL BILIRUBIN (U) NEGATIVE NEGATIVE MG/DL BLOOD (U) NEGATIVE NEGATIVE CULTURE & SENSITIVITY INDICATED? CULTURE IS NOT INDICATED MUCUS RARE /LPF WBC/HPF 1 <6 /HPF RBC/HPF 1 <6 /HPF BACTERIA (U) RARE (A) NONE /HPF SQUAMOUS EPITHELIALS RARE /HPF Microbiology Results (last 14 days) Procedure Component Value Units Date/Time CULTURE BACTERIA, BLOOD [[id number]] Collected: 11/29/23 0228 Order Status: Completed Lab Status: Preliminary result Updated: 12/01/23 1457 Specimen: BLOOD SPEC DESCRIPTION BLOOD SPECIAL REQUESTS NO SPECIAL REQUEST CULTURE RESULT NO GROWTH 2 DAYS URINE BACTERIA CULTURE [[id number]] (Abnormal) (Susceptibility) Collected: 11/28/235 Order Status: Completed Lab Status: Final result Updated: 12/01/23 0808 Specimen: URINE, CLEAN CATCH SPEC DESCRIPTION URINE CLEAN CATCH SPECIAL REQUESTS NO SPECIAL REQUEST CULTURE RESULT -- 50,000-100,000 COL/ML ENTEROCOCCUS SPECIES CULTURE RESULT -- POLYMICROBIAL GROWTH CONSISTENT WITH NORMAL GENITAL AIDEN. SUSCEPTIBILITIES NOT ROUTINELY PERFORMED. Susceptibility Enterococcus species JESSI (VITEK) AMPICILLIN <=2 Sensitive GENT. SYNERGY SCREEN Resistant NITROFURANTOIN <=16 Sensitive PENICILLIN G 2 Sensitive Imaging: Radiology Results (Last 30 days) 11/29/[address] ABD+PEL W CON Final result Impression: IMPRESSION: 1. Essentially unchanged appearance of chronic right hydronephrosis, with suggestion of obstruction at the UPJ. Suggestion of nonspecific inflammatory change in right renal pelvis, possibly infectious. No evidence of acute pyelonephritis. 2. Redemonstration of multiple bilateral nonobstructing renal calculi. 3. Other chronic/nonurgent findings, as above. Referred By: Interpreted By: Jeromy Massey MD, 11/29/2023 1:40 AM EKG: No results found for this visit on 11/28/23. Sandra Alonzo MD * Stuart Mary MD - 11/29/2023 4:12 PM CDTAssociated Order(s): IP CONSULT TO UROLOGY Images from the original note were not included. Urology Consult Note: Attending Provider: Arlene Conley PA-C PCP: YASMIN SEGURA MD Lena Mcneal is an 53-year-old female. Reason for Consult: recurrent UTI HPI: Lena Mcneal is a 53yF with PMHx of chronic right hydronephrosis s/p prior pyeloplasty x2, recurrent UTI, urolithiasis, diabetes with neuropathy, HTN, HLD for whom urology was consulted for the above. Patient presented to the hospital yesterday for abdominal pain and dysuria. In the ER, her urinalysis appeared suspicious for urinary tract infection. She is currently on IV vancomycin. Her recent available urine cultures have shown Enterococcus UTI sensitive to vancomycin. She does have allergies to penicillin and cephalosporins. In regards to the patient's urologic history, she had a right-sided pyeloplasty as a child and had a re-do pyeloplasty in [address] Lucero. She was last evaluated in the urology clinic in April 2023 by her urologist, Dr. Lucero. Most recently she had cystoscopy with bilateral retrograde pyelograms on 07/20/2023 at our surgery center in [place] where she was found to have no concerning lower urinary tract lesions, mild narrowing at the right ureteropelvic junction on retrograde pyelogram,and a normal left-sided retrograde pyelogram; there was no obvious source of her UTIs or her pain noted during this procedure. She has had multiple diuretic renal scans over the years, most recently in October 2022 which showed stable dilation of the right collecting system with no evidence of significant mechanical obstruction. In the past, she has had both ureteral stents and nephrostomy tubes, neither of which she hastolerated well. She was recently on postcoital antibiotics for her history of recurrent UTIs with Macrobid, which she is not currently taking; she actually states she is not very sexually active never really took post-coital antibiotics for any significant duration. She cannot recall if she has been on daily suppressive antibiotics. PMH: Past Medical History: Diagnosis Date Arthritis Charcot foot due to diabetes mellitus ([facility]) LEFT FOOT Constipation COVID-19 Diabetes mellitus ([facility]) Diabetic neuropathy ([facility]) Gastric ulcer High cholesterol Hypertension Kidney stone 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 UTI (urinary tract infection) Vision decreased blind right eye, poor vision left eye PSH: Past Surgical History: Procedure Laterality Date 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 SURGERY HYSTERECTOMY 2004, 2019 hysterectomy, cervical surgery RETINAL DETACHMENT SURGERY Right Allergies: Allergies Allergen Reactions Ceftriaxone Rash Fish Oil Unknown Amoxicillin Rash Penicillins Rash SH: Social History Tobacco Use Smoking status: Never Smokeless tobacco: Never Substance Use Topics Alcohol use: Not Currently Comment: few times per year FH: Family History Problem Relation Name Age of Onset Diabetes Mother Hypertension Mother Heart Attack Father Hypertension Father Stroke Sister Hypertension Sister Breast Cancer Other cousin 49 No current facility-administered medications on file prior to encounter. Current Outpatient Medications on File Prior to Encounter Medication Sig amLODIPine (NORVASC) 10 MG tablet Take 1 tablet (10 mg total) by mouth nightly at bedtime. calcium carbonate (TUMS) 500 MG chewable tablet Chew 1 tablet (500 mg total) by mouth 2 (two) timesdaily as needed. doxycycline hyclate (VIBRAMYCIN) 50 MG capsule Take 1 capsule (50 mg total) by mouth daily. Glucose Blood (ACCU-CHEK CIERRA PLUS) test strip 1 strip by Other route 2 (two) times daily. Use as instructed HUMALOG MIX 75/25 (75-25) 100 UNIT/ML Suspension INJECT 65 UNITS SUBCUTANEOUSLY IN THE MORNING AND 55 IN THE EVENING (Patient taking differently: 70 Q AM and 60 Q HS) Insulin Syringe-Needle U-100 (INSULIN SYRINGE 1CC/30GX5/16 ) 30G X 5/16 1 ML Misc Use as directed to inject insulin twice a day. linaCLOtide (LINZESS) 145 MCG capsule Take 1 capsule (145 mcg total) by mouth every morning before breakfast. Take on empty stomach at least 30 minutes prior to the first meal of the day. Swallow whole. Do not open capsule or chew. lisinopril (PRINIVIL) 20 MG tablet Take 1 tablet (20 mg total) by mouth every evening. Indications:hypertension semaglutide (OZEMPIC) 2 MG/3ML injection (PEN) Inject 0.5 mg into the skin every 7 days. Indications: Diabetes simvastatin (ZOCOR) 40 MG tablet Take 1 tablet (40 mg total) by mouth nightly at bedtime. triamcinolone (KENALOG) 0.1 % cream Apply topically 2 (two) times daily. cyclobenzaprine (FLEXERIL) 10 MG tablet Take 1 tablet (10 mg total) by mouth 3 (three) times daily as needed for Muscle Spasms. fosfomycin (MONUROL) 3 g Pack Take 3 gm by mouth every other day for 3 doses. (Patient not taking: Reported on 09/26/2023) HYDROcodone-acetaminophen (NORCO) 5-325 MG tablet Take 1 tablet by mouth every 4 (four) hours as needed. omeprazole (PRILOSEC) 20 MG capsule Take 1 capsule (20 mg total) by mouth daily as needed. ondansetron (ZOFRAN-ODT) 4 MG disintegrating tablet Take 1 tablet (4 mg total) by mouth every 6 (six) hours as needed for Nausea. oxybutynin (DITROPAN) 5 MG tablet Take 1 tablet (5 mg total) by mouth 3 (three) times daily as needed (pain). oxyCODONE-acetaminophen (PERCOCET) 5-325 MG tablet Take 1 tablet by mouth every 8 (eight) hours as needed. (Patient not taking: Reported on 10/29/2023) traMADol (ULTRAM) 50 MG tablet Take 1 tablet (50 mg total) by mouth every 6 (six) hours as needed. Principal Problem: UTI (urinary tract infection) SNOMED CT(R): URINARY TRACT INFECTIOUS DISEASE Blood pressure (!) 140/77, pulse 85, temperature 97.3 ??F (36.3 ??C), temperature source Oral, resp. rate 16, height 1.676 m (5' 6 ), weight 90.3 kg (199 lb), last menstrual period 10/29/2004, SpO2 96%. ROS Constitutional: No fevers or chills Eyes: No changes in vision HENT: No hearing loss Cardiovascular: No chest pain or palpitations Respiratory: No shortness of breath, cough, wheezing GI: No abdominal pain, nausea, or vomiting : No dysuria or hematuria Heme: No easy bruising or bleeding Skin: No rash or itching MSK: No myalgias or joint pain Psych: No hallucinations Neuro: No lateralized numbness or tingling Physical Exam General: Alert, no acute distress Head: Normocephalic, atraumatic Eyes: Extraocular movements intact Neck: No JVD, trachea midline Respiratory: Symmetric chest rise, nonlabored breathing on room air CV: Normal rate, adequate peripheral perfusion Abdomen: Soft, nontender, nondistended : Minimal right CVAT Skin: Warm/dry Extremities: No peripheral edema, no cyanosis Neuro: No focal deficits Psych: Answers questions appropriately, appropriate mood Assessment: 53yF with complex urologic history including right UPJO s/p pyeloplasty x2, recurrent UTIs, currently admitted to hospital with suspected UTI Plan: - No acute urologic surgical intervention indicated - Labs reviewed. Patient's creatinine appears to be at her baseline. Her urinalysis appears infected. Agree with broad-spectrum antibiotics, follow-up cultures and tailor accordingly. - CT reviewed. She has stable right hydronephrosis with some inflammatory changes, suspicious for UTI/pyelonephritis. There is a stable calcification and what appears to be the right gonadal vein, but there are no appreciated urinary tract stones. - Prior nuclear medicine renal Lasix scans reviewed, she has no evidence of mechanical obstruction on the right-hand side and has stable dilation of the right collecting system. - Patient has history of ureteral stents and nephrostomy tubes, neither of which she has evidently tolerated very well. Do not recommend either of these at this time. - Following resolution of patient's acute infection, consider daily cranberry + D-mannose, daily suppressive antibiotics, vaginal estrogen, methenamine, etc. - Outpatient follow-up with urology and ID. Given patient's preference to follow-up for her urologic care in [place], will arrange for follow-up in either [place] or [facility]. Follow-up info placed in EMR. - Remainder of management per primary - Urology will follow peripherally at this time, please contact if questions/concerns STUART MARY MD 11/29/2023 ---- Stuart Mary MD [facility] Office and after-hours exchange phone number: [phone] documented in this encounter Nursing Notes * Selina Ortega RN - 11/30/2023 5:23 PM CDT This RN performed timeout with Shayy CARRERA from the PICC team.Consent signed and in the chart and timeout checklist placed on retail area manager's desk. The patient is able to verbalize understanding of procedure.PICC RN at bedside performing placement at the time of this note. MERRY Tolentino RN * Selina Ortega RN - 11/30/2023 11:03 AM CDT This RN reached out to lab for assistance with blood draw from this AM. Mehrdad in the lab reassured this RN that the patient was on the list for lab draw and he will call phlebotomy to remind them. 1310: Phlebotomy stated she could not get labs and would send another operative supervisor. 1524: two operative supervisor, this RN, and another RN attempted lab draw and were unsuccessful. Hospitalist aware. MERRY Smith RN documented in this encounter ED Notes * CYNTHIA Babb - 11/28/2023 10:27 PM CDT ED NOTE Chief Complaint Chief Complaint Patient presents with ??? Urinary Symptoms ??? Back Pain History of Present Illness 53-year-old female with a history of arthritis, Charcot foot due to diabetes, constipation, COVID-19, diabetic neuropathy, gastric ulcer, high cholesterol, hypertension, kidney stones, renal disease,impaired vision and recurrent frequent UTIs presents to the emergency room for dysuria. Patient reports that for the past 8 months she has been having intermittent dysuria and frequent UTIs. Has beenon multiple antibiotics most recently seen by infectious disease who prescribed her linezolid. Reports that she has Macrobid in the past that did not work. Denies any fevers, chills, chestpain, shortness of breath. Reports pain in the right side of her lower back that radiates to the right side of her abdomen. On [facility]- Urine Culture 11-21-23 Organism Antibiotic Method Susceptibility Enterococcus faecalis Ampicillin JESSI <=2 ug/mL: Susceptible Enterococcus faecalis Doxycycline JESSI >=16 ug/mL: Resistant Comment: This is an appended report. These results have been appended to a previously final verified report. Enterococcus faecalis Nitrofurantoin JESSI <=16 ug/mL: Susceptible Enterococcus faecalis Tetracycline JESSI >=16 ug/mL: Resistant Comment: This is an appended report. These results have been appended to a previously final verified report. Enterococcus faecalis Vancomycin JESSI 1 ug/mL: Susceptible Medical History ALLERGIES: Review of patient's allergies indicates: Allergen Reactions ??? Ceftriaxone Rash ??? Fish Oil Unknown ??? Amoxicillin Rash ??? Penicillins Rash MEDICATIONS: Prior to Admission medications [...] by mouth daily. 10/26/23 Default History Genericprovider fosfomycin (MONUROL) 3 g Pack Take 3 gm by mouth every other day for 3 doses. Patient not taking: Reported on 09/26/2023 08/16/23 Yasmin Segura II, MD Glucose Blood (ACCU-CHEK CIERRA PLUS) test strip 1 strip by Other route 2 (two) times daily. Use as instructed 12/05/22 Yasmin Segura II, MD HUMALOG MIX 75/25 (75-25) 100 UNIT/ML Suspension INJECT 65 UNITS SUBCUTANEOUSLY IN THE MORNING AND 55 IN THE EVENING Patient taking differently: 70 Q AM and 60 Q HS 07/26/23 Stuart Rader MD HYDROcodone-acetaminophen (NORCO) 5-325 MG tablet Take 1 tablet by mouth every 4 (four) hours as needed. 07/27/23 Default History Genericprovider Insulin Syringe-Needle U-100 (INSULIN SYRINGE 1CC/30GX5/16 ) [...] as needed (pain). 10/20/22 Default History Genericprovider oxyCODONE-acetaminophen (PERCOCET) 5-325 MG tablet Take 1 tablet by mouth every 8 (eight) hours as needed. Patient not taking: Reported on 10/29/2023 10/04/23 Default History Genericprovider semaglutide (OZEMPIC) 2 MG/3ML injection (PEN) Inject 0.5 mg into the skin every 7 days. Indications: Diabetes 10/29/23 Yasmin Segura II, MD simvastatin (ZOCOR) 40 MG tablet Take 1 tablet (40 mg total) by mouth nightly at bedtime. 06/15/23 Yasmin Segura II, MD traMADol (ULTRAM) 50 MG tablet Take 1 tablet (50 mg total) by mouth every 6 (six) hours as needed. 04/25/23 Default History Genericprovider triamcinolone (KENALOG) 0.1 % cream Apply topically 2 (two) times daily. 03/19/23 Yasmin Segura II, MD PAST MEDICAL HISTORY: Past Medical History: Diagnosis Date ??? Arthritis ??? Charcot foot due to diabetes mellitus ([facility]) LEFT FOOT ??? Constipation ??? COVID-19 ??? Diabetes mellitus ([facility]CC HHS/HCC) ??? Diabetic neuropathy ([facility]/HCC) ??? Gastric ulcer ??? High cholesterol ??? Hypertension ??? Kidney stone ??? 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 UTI (urinary tract infection) ??? Vision decreased blind right eye, poor vision left eye PAST SURGICAL HISTORY: Past Surgical History: Procedure Laterality Date ??? 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 BLADDER SURGERY ??? EYE SURGERY ??? HYSTERECTOMY 2004, 2019 hysterectomy, cervical surgery ??? RETINAL DETACHMENT SURGERY Right FAMILY HISTORY: Family History Problem Relation Name Age of Onset ??? Diabetes Mother ??? Hypertension Mother ??? Heart Attack Father ??? Hypertension Father ??? Stroke Sister ??? Hypertension Sister ??? Breast Cancer Other cousin 49 SOCIAL HISTORY: Social History Tobacco Use ??? Smoking status: Never ??? Smokeless tobacco: Never Vaping Use ??? Vaping status: Never Used Substance Use Topics ??? Alcohol use: Not Currently Comment: few times per year ??? Drug use: No Physical Exam Filed Vitals: 11/28/23 2223 BP: (!) 170/80 Pulse: 92 Resp: 16 Temp: 96.9 ??F (36.1 ??C) TempSrc: Temporal SpO2: 99% Weight: 90.3 kg (199 lb) Height: 1.676 m (5' 6 ) Physical Exam Vitals and nursing note reviewed. Constitutional: Appearance: Normal appearance. She is well-developed. Comments: Nontoxic appearing HENT: Head: Normocephalic and atraumatic. Nose: Nose normal. Mouth/Throat: Mouth: Mucous membranes are moist. Pharynx: Oropharynx is clear. Eyes: Conjunctiva/sclera: Conjunctivae normal. Cardiovascular: Rate and Rhythm: Normal rate and regular rhythm. Pulses: Normal pulses. Heart sounds: Normal heart sounds. Pulmonary: Effort: Pulmonary effort is normal. No respiratory distress. Breath sounds: Normal breath sounds. Abdominal: General: Bowel sounds are normal. There is no distension. Palpations: Abdomen is soft. Tenderness: There is abdominal tenderness (right sided, no skin changes). There is no right CVA tenderness or left CVA tenderness. Musculoskeletal: General: Normal range of motion. Cervical back: Normal range of motion and neck supple. Comments: +ttp to right lower back. No midline c/t/l spine ttp. Full AROM of UE and LE. LE distal pulses, sensation, cap refill, temperature, patellar reflex and strength intact and equal bilaterally. Able to plantarflex and dorsiflex great toes bilaterally. No saddle anesthesia. No sensory or motor deficit at L4, L5 or S1 distributions. Pt ambulatory with steady gait. No foot drop Skin: General: Skin is warm and dry. Capillary Refill: Capillary refill takes less than 2 seconds. Neurological: General: No focal deficit present. Mental Status: She is alert and oriented to person, place, and time. Psychiatric: Mood and Affect: Mood normal. Behavior: Behavior normal. Diagnostic Studies / Procedures ELECTROCARDIOGRAMS: No results found for this visit on 11/28/23. LABORATORY STUDIES: Results for orders placed or performed during the hospital encounter of 11/28/23 CBC W/DIFF AUTOMATED Result Value Ref Range WBC 9.99 4.5 - 11.0 x10'3/uL RBC 4.30 4.20 - 5.40 x10'6/uL HGB 13.0 12.0 - 16.0 G/DL HCT 38.5 38.0 - 48.0 % MCV 89.5 81.0 - 99.0 FL MCH 30.2 27.0 - 31.0 PG MCHC 33.8 32.0 - 36.0 G/DL RDW 13.2 11.5 - 14.5 % PLT 290 130 - 400 x10'3/uL MPV 11.6 9.3 - 12.2 FL DIFFERENTIAL TYPE AUTOMATED DIFFERENTIAL NEUTROPHILS % 55.2 % LYMPHOCYTES % 38.3 % MONOCYTES % 3.8 % EOSINOPHILS 1.7 % BASOPHILS 0.7 % IMMATURE GRANS % 0.3 % ABS. NEUTROPHILS 5.51 1.80 - 7.70 x10'3/uL ABS. LYMPHOCYTES 3.83 1.00 - 4.80 x10'3/uL ABS. MONOCYTES 0.38 0.24 - 0.86 x10'3/uL ABS. EOSINOPHILS 0.17 0.04 - 0.36 x10'3/uL ABS. BASOPHILS 0.07 0.01 - 0.08 x10'3/uL ABS. IMMATURE GRANULOCYTES 0.03 0.00 - 0.49 x10'3/uL COMPREHENSIVE METABOLIC PANEL Result Value Ref Range GLUCOSE 144 (H) 70 - 99 MG/DL BUN 17 7 - 18 MG/DL CREATININE S/P/B 1.18 (H) 0.55 - 1.02 MG/DL SODIUM S/P/B 140 136 - 145 MMOL/L POTASSIUM S/P/B 3.7 3.5 - 5.1 MMOL/L CHLORIDE S/P/B 105 97 - 115 MMOL/L CO2 29.7 21 - 32 MMOL/L CALCIUM S/P/B 9.4 8.5 - 10.1 MG/DL BILIRUBIN TOTAL S/P/B 0.3 0.2 - 1.2 MG/DL TOTAL PROTEIN S/P/B 9.3 (H) 6.4 - 8.2 G/DL ALBUMIN S/P/B 3.6 3.4 - 5.0 G/DL AST 20 15 - 37 U/L ALT 24 14 - 55 U/L ALKALINE PHOSPHATASE S/P/B 163 (H) 50 - 136 U/L ANION GAP 5.3 2 - 10 MMOL/L BUN CREATININE RATIO 14.4 6 - 26 A/G RATIO 0.6 (L) 1.0 - 2.0 RATIO GFR ESTIMATE 56 (L) >90 ML/MIN/1.73 M2 LIPASE Result Value Ref Range LIPASE 32 13 - 75 UNITS/L URINALYSIS Result Value Ref Range Specimen Type URINE CLEAN CATCH COLOR (U) YELLOW TRANSPARENCY TURBID SPECIFIC GRAVITY (U) 1.014 1.001 - 1.030 U PH 6.0 5.0 - 9.0 LEUKOCYTES (U) 500 (A) NEGATIVE NITRITES NEGATIVE NEGATIVE PROTEIN RANDOM (U) 200 (H) <30 MG/DL GLUCOSE (U) 50 (A) NORMAL MG/DL KETONES MG/DL (U) NEGATIVE NEGATIVE MG/DL UROBILINOGEN NORMAL NORMAL MG/DL BILIRUBIN (U) NEGATIVE NEGATIVE MG/DL BLOOD (U) 1+ (A) NEGATIVE WBC/HPF >100 (H) <6 /HPF RBC/HPF 10 (H) <6 /HPF BACTERIA (U) RARE (A) NONE /HPF SQUAMOUS EPITHELIALS MANY /HPF IMAGING STUDIES CT ABD+PEL W CON Final Result by User, [id number] (11/28 159) [address] [address] INDICATION: Right flank and abdominal pain, chronic dysuria COMPARISON: CT abdomen/pelvis, 05 Mar 2023 TECHNIQUE: CT images of the abdomen and pelvis were obtained following the administration of IV contrast. Radiation dose reduction technique utilized. FINDINGS: Limited visualization of the lower thorax reveals no acute abnormality. Normal size liver. No suspicious hepatic lesion. Probable biliary sludge in gallbladder. Hepatic veins, main portal vein, splenic vein, SMV, and SMA enhance. Atherosclerosis of the abdominal and pelvic vasculature. No retroperitoneal lymphadenopathy. No evidence of bowel obstruction or inflammation. Normal appearing appendix. No free gas in the abdomen or pelvis. No mesenteric lymphadenopathy. Stomach and duodenum within normal limits. Normal size spleen. Incidental note of benign, calcified splenic granulomata. Unchanged 0.7 cm hypoattenuating focus in along superior aspect of the spleen, possibly representing a benign simple cyst. Pancreas within normal limits. Adrenal glands within normal limits. Redemonstration of right hydronephrosis and cortical atrophy. Enhancement pattern in the right renal pelvis suggests inflammation. No renal cortical enhancement abnormality identified. Right ureter appears within normal limits. No left hydronephrosis or hydroureter. Redemonstration of bilateral nonobstructing renal calculi measuring up to 0.2 cm on the right and 0.2 cm on the left. Urinary bladder within normal limits for degree of distention. Hysterectomy. Incidental note of benign pelvic phleboliths. No pelvic lymphadenopathy or significant free fluid. 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 Chronic multilevel degenerative changes of the spine. Visualized body wall exhibits no acute abnormality. IMPRESSION: 1. Essentially unchanged appearance of chronic right hydronephrosis, with suggestion of obstruction at the UPJ. Suggestion of nonspecific inflammatory change in right renal pelvis, possibly infectious. No evidence of acute pyelonephritis. 2. Redemonstration of multiple bilateral nonobstructing renal calculi. 3. Other chronic/nonurgent findings, as above. Referred By: Interpreted By: Jeromy Massey MD, 11/29/2023 1:40 AM ED Course / Medical Decision Making MDM Amount and/or Complexity of Data Reviewed Clinical lab tests: ordered and reviewed Tests in the radiology section of CPT??: reviewed and ordered Review and summarize past medical records: yes Discuss the patient with other providers: yes (Dr. Godoy, hospitalist) ED Course as of 11/29/23 0211 Viky Nov 29, 2023 0040 WBC: 9.99 [AD] 0101 CREATININE S/P/B(!): 1.18 Hx of similar, previous 1.11-1.2 [AD] 0156 CT ABD+PEL W CON Per rad read: 1. Essentially unchanged appearance of chronic right hydronephrosis, with suggestion of obstruction at the UPJ. Suggestion of nonspecific inflammatory change in right renal pelvis, possibly infectious. No evidence of acute pyelonephritis. 2. Redemonstration of multiple bilateral nonobstructing renal calculi. 3. Other chronic/nonurgent findings, as above. [AD] 0202 53-year-old female with recurrent UTIs resistant to multiple antibiotics and failed multiple outpatient oral antibiotics. Urine is suggestive of persistent UTI. BUN/creatinine stable. No leukocytosis or evidence of sepsis. Reviewed culture from care everywhere. Will start with IV vancomycin. Doc halo sent to hospitalist for admission. [AD] 0210 S/w Dr. Godoy who accepts admission to medical inpatient. No additional orders. Patient is agreeable to this plan, no acute concerns at this time [AD] ED Course User Index [AD] CYNTHIA Babb Medications vancomycin (VANCOCIN) 1,750 mg in sodium chloride 0.9 % 500 mL IVPB (has no administration in time range) morphine injection 2 mg (2 mg Intravenous Given 11/29/23 0150) iopamidol (ISOVUE-370) 76 % injection 100 mL (100 mLs Intravenous Given 11/29/23 0133) Clinical Impression UTI (urinary tract infection) (Primary) Pyelitis Current Discharge Medication List Disposition: Admit Follow-Up: No follow-up provider specified. CYNTHIA BABB 11/29/2023 CYNTHIA Babb 11/29/231 Cosigned by Americo Elder MD,PHD at 11/29/2023 6:12 AM CDT * Kristel Jaramillo RN - 11/28/2023 10:26 PM CDT Pt here for c/o lower back pain that radiates to the right side and urinary burning/pain that has been going on x 8 months. States she has been on numerous antibiotics to help treat the sx & has been seen by ID, who told her she needed to come in for IV ABX. documented in this encounter Plan of Treatment Upcoming Encounters Date Type Department Care Team (Late st Contact Info) Description 03/14/2024 11:45 AM TRANSMITTER ENGINEER IN CHARGE Office Visit [facility] [phone] Marvin Mckeon MD [address] [facility] [address] [place], [place] [id number] 03/20/2024 11:30 AM TRANSMITTER ENGINEER IN CHARGE Office Visit [facility] - [address] [place] [phone] Yasmin Segura II, MD [address] [place], [place] [address] documented as of this encounter Goals Goal Patient Goal Type Associated Problems Recent Progress Patient-Stated? Author Family - family caregiver with be involved in care transitions and discharge planning Lifestyle No Natty Cheek RN documented as of this encounter Procedures Procedure Name Priority Date/Time Associated Diagnosis Comments BASIC METABOLIC PANEL Routine 12/02/2023 5:28 AM CDT CBC W/DIFF AUTOMATED Routine 12/02/2023 5:28 AM CDT POCT GLUCOSE - CORREA DOCKED DEVICE Routine 12/01/2023 8:08 PM CDT POCT GLUCOSE - CORREA DOCKED DEVICE Routine 12/01/2023 5:22 PM CDT POCT GLUCOSE - CORREA DOCKED DEVICE Routine 12/01/2023 11:28 AM CDT POCT GLUCOSE - CORREA DOCKED DEVICE Routine 12/01/2023 8:16 AM CDT BASIC METABOLIC PANEL Routine 12/01/2023 5:43 AM CDT CBC W/DIFF AUTOMATED Routine 12/01/2023 5:43 AM CDT VANCOMYCIN Routine 12/01/2023 5:43 AM CDT POCT GLUCOSE - CORREA DOCKED DEVICE Routine 11/30/2023 7:45 PM CDT BASIC METABOLIC PANEL Routine 11/30/2023 6:10 PM CDT CBC W/DIFF AUTOMATED Routine 11/30/2023 6:10 PM CDT POCT GLUCOSE - CORREA DOCKED DEVICE Routine 11/30/2023 3:47 PM CDT POCT GLUCOSE - CORREA DOCKED DEVICE Routine 11/30/2023 12:05 PM CDT POCT GLUCOSE - CORREA DOCKED DEVICE Routine 11/30/2023 6:22 AM CDT POCT GLUCOSE - CORREA DOCKED DEVICE Routine 11/29/2023 7:51 PM CDT POCT GLUCOSE - CORREA DOCKED DEVICE Routine 11/29/2023 4:53 PM CDT POCT GLUCOSE - CORREA DOCKED DEVICE Routine 11/29/2023 11:48 AM CDT POCT GLUCOSE - CORREA DOCKED DEVICE Routine 11/29/2023 6:46 AM CDT POCT GLUCOSE - CORREA DOCKED DEVICE Routine 11/29/2023 3:17 AM CDT CULTURE, BACTERIA, BLOOD STAT 11/29/2023 2:28 AM CDT LACTIC ACID W REFLEX (SEPSIS) STAT 11/29/2023 1:[address] ABD+PEL W CON STAT 11/29/2023 1:33 AM CDT COMPREHENSIVE METABOLIC PANEL STAT 11/29/2023 12:13 AM CDT CBC W/DIFF AUTOMATED STAT 11/29/2023 12:13 AM CDT LIPASE STAT 11/29/2023 12:13 AM CDT HC URINALYSIS AUTO W/O MICRO STAT 11/28/2023 10:35 PM CDT URINE BACTERIA CULTURE STAT 10:35 PM CDT documented in this encounter Results * (ABNORMAL) CBC W/DIFF AUTOMATED (12/02/2023 5:28 AM CDT) Pathologist [facility] [place] WBC 8.65 4.5 - 11.0 x10'3/uL 12/02/2023 5:40 AM CDT [facility] RBC 3.60(L) 4.20 - 5.40 x10'6/uL 12/02/2023 5:40 AM CDT [facility] HGB 10.8(L) 12.0 - 16.0 G/DL 12/02/2023 5:40 AM CDT [facility] HCT 32.3(L) 38.0 - 48.0 % 12/02/2023 5:40 AM CDT [facility] MCV 89.7 81.0 - 99.0 FL 12/02/2023 5:40 AM CDT [facility] MCH 30.0 27.0 - 31.0 PG 12/02/2023 5:40 AM CDT [facility] MCHC 33.4 32.0 - 36.0 G/DL 12/02/2023 5:40 AM CDT [facility] RDW 12.8 11.5 - 14.5 % 12/02/2023 5:40 AM CDT [facility] PLT 250 130 - 400 x10'3/uL 12/02/2023 5:40 AM CDT [facility] MPV 11.3 9.3 - 12.2 FL 12/02/2023 5:40 AM CDT [facility] DIFFERENTIAL TYPE AUTOMATED DIFFERENTIAL 12/02/2023 5:40 AM CDT [facility] NEUTROPHILS % 60.9 % 12/02/2023 5:40 AM CDT [facility] LYMPHOCYTES % 30.4 % 12/02/2023 5:40 AM CDT [facility] MONOCYTES % 5.7 % 12/02/2023 5:40 AM CDT [facility] EOSINOPHILS 2.3 % 12/02/2023 5:40 AM CDT [facility] BASOPHILS 0.5 % 12/02/2023 5:40 AM CDT [facility] IMMATURE GRANS % 0.2 % 12/02/19 5:40 AM CDT [facility] ABS. NEUTROPHILS 5.27 1.80 - 7.70 x10'3/uL 12/02/2023 5:40 AM CDT [facility] ABS. LYMPHOCYTES 2.63 1.00 - 4.80 x10'3/uL 12/02/2023 5:40 AM CDT [facility] ABS. MONOCYTES 0.49 0.24 - 0.86 x10'3/uL 12/02/2023 5:40 AM CDT [facility] ABS. EOSINOPHILS 0.20 0.04 - 0.36 x10'3/uL 12/02/2023 5:40 AM CDT [facility] ABS. BASOPHILS 0.04 0.01 - 0.08 x10'3/uL 12/02/2023 5:40 AM CDT [facility] ABS. IMMATURE GRANULOCYTES 0.02 0.00 - 0.49 x10'3/uL 12/02/2023 5:40 AM CDT [facility] 12/02/2023 5:28 AM CDT Arlene Conley PA-C LABORATORY Final Result [facility] [address] [place] [address], * (ABNORMAL) BASIC METABOLIC PANEL (12/02/2023 5:28 AM CDT) [facility] GLUCOSE 106(H) 70 - 99 MG/DL 12/02/2023 5:58 AM CDT [facility] BUN 15 7 - 18 MG/DL 12/02/2023 5:58 AM CDT [facility] CREATININE S/P/B 1.03(H) 0.55 - 1.02 MG/DL 12/02/2023 5:58 AM CDT [facility] SODIUM S/P/B 140 136 - 145 MMOL/L 12/02/2023 5:58 AM CDT [facility] POTASSIUM S/P/B 3.7 3.5 - 5.1 MMOL/L 12/02/2023 5:58 AM CDT [facility] CHLORIDE S/P/B 107 97 - 115 MMOL/L 12/02/2023 5:58 AM CDT [facility] CO2 28.5 21 - 32 MMOL/L 12/02/2023 5:58 AM CDT [facility] CALCIUM S/P/B 9.4 8.5 - 10.1 MG/DL 12/02/2023 5:58 AM CDT [facility] ANION GAP 4.5 2 - 10 MMOL/L 12/02/2023 5:58 AM CDT [facility] BUN CREATININE RATIO 14.6 6 - 26 12/02/2023 5:58 AM CDT [facility] GFR ESTIMATE 65(L) >90 ML/MIN/1.7 3 M2 12/02/2023 5:58 AM CDT [facility] Comment: NOTE: eGFR is not calculated for patients <18 years of age or gender unknown. This is an estimated GFR calculation using the new CKD EPI creatinine equation without race and so does not require a correction factor for race. This estimated GFR should not be used for calculating drug doses. 12/02/2023 5:28 AM CDT rAlene Conley PA-C LABORATORY Final Result Performing Organization Address City/[facility]/ZIP Co de Phone Number [facility] [address] [place] [address], * (ABNORMAL) POCT glucose (12/01/2023 8:08 PM CDT) GLUCOSE POC 238(H) 70 - 99 mg/dL 12/01/2023 8:19 PM CDT [facility] 12/01/2023 8:08 PM CDT Erin Alvarengac PA-C POCT ORDERABLES - DEVICE Final Result Performing Organization Address City/[facility] Co de Phone Number [facility] [address] [place] [address], [place] [phone] * (ABNORMAL) POCT glucose (12/01/2023 5:22 PM CDT) GLUCOSE POC 178(H) 70 - 99 mg/dL 12/01/2023 5:29 PM CDT [facility] 12/01/2023 5:22 PM CDT Erin Redzic PA-C POCT ORDERABLES - DEVICE Final Result [facility] [address] [place] [address], * (ABNORMAL) POCT glucose (12/01/2023 11:28 AM CDT) GLUCOSE POC 122(H) 70 - 99 mg/dL 12/01/2023 11:38 AM CDT [facility] 12/01/2023 11:2 8 AM CDT Erin Redzic PA-C POCT ORDERABLES - DEVICE Final Result [facility] [address] [place] [address], * (ABNORMAL) POCT glucose (12/01/2023 8:16 AM CDT) GLUCOSE POC 170(H) 70 - 99 mg/dL 12/01/2023 8:19 AM CDT [facility] 12/01/2023 8:16 AM CDT Erin Redzic PA-C POCT ORDERABLES - DEVICE Final Result [facility] [address] [place] [address], * Vancomycin Random Level (12/01/2023 5:43 AM CDT) VANCOMYCIN RANDOM 6.2 MCG/ML 12/01/2023 6:16 AM CDT [facility] Comment:NO THERAPEUTIC RANGE AVAILABLE VANCOMYCIN UNKNOWN LAST DOSE 12/01/2023 10:57 AM CDT [facility] 12/01/2023 5:43 AM CDT Arlene Conley PA-C LABORATORY Final Result [facility] [address] [place] [address], [place] [phone] * (ABNORMAL) CBC W/DIFF AUTOMATED (12/01/2023 5:43 AM CDT) Pathologist [facility] [place] WBC 7.83 4.5 - 11.0 x10'3/uL 12/01/2023 5:58 AM CDT [facility] RBC 3.63(L) 4.20 - 5.40 x10'6/uL 12/01/2023 5:58 AM CDT [facility] HGB 10.8(L) 12.0 - 16.0 G/DL 12/01/2023 5:58 AM CDT [facility] HCT 32.4(L) 38.0 - 48.0 % 12/01/2023 5:58 AM CDT [facility] MCV 89.3 81.0 - 99.0 FL 12/01/2023 5:58 AM CDT [facility] MCH 29.8 27.0 - 31.0 PG 12/01/2023 5:58 AM CDT [facility] MCHC 33.3 32.0 - 36.0 G/DL 12/01/2023 5:58 AM CDT [facility] RDW 12.8 11.5 - 14.5 % 12/01/2023 5:58 AM CDT [facility] PLT 248 130 - 400 x10'3/uL 12/01/2023 5:58 AM CDT [facility] MPV 11.4 9.3 - 12.2 FL 12/01/2023 5:58 AM CDT [facility] DIFFERENTIAL TYPE AUTOMATED DIFFERENTIAL 12/01/2023 5:58 AM CDT [facility] NEUTROPHILS % 56.7 % 12/01/2023 5:58 AM CDT [facility] LYMPHOCYTES % 35.2 % 12/01/2023 5:58 AM CDT [facility] MONOCYTES % 5.7 % 12/01/2023 5:58 AM CDT [facility] EOSINOPHILS 1.5 % 12/01/2023 5:58 AM CDT [facility] BASOPHILS 0.6 % 12/01/2023 5:58 AM CDT [facility] IMMATURE GRANS % 0.3 % 12/01/19 5:58 AM CDT [facility] ABS. NEUTROPHILS 4.43 1.80 - 7.70 x10'3/uL 12/01/2023 5:58 AM CDT [facility] ABS. LYMPHOCYTES 2.76 1.00 - 4.80 x10'3/uL 12/01/2023 5:58 AM CDT [facility] ABS. MONOCYTES 0.45 0.24 - 0.86 x10'3/uL 12/01/2023 5:58 AM CDT [facility] ABS. EOSINOPHILS 0.12 0.04 - 0.36 x10'3/uL 12/01/2023 5:58 AM CDT [facility] ABS. BASOPHILS 0.05 0.01 - 0.08 x10'3/uL 12/01/2023 5:58 AM CDT [facility] ABS. IMMATURE GRANULOCYTES 0.02 0.00 - 0.49 x10'3/uL 12/01/2023 5:58 AM CDT [facility] 12/01/2023 5:43 AM CDT Arlene Conley PA-C LABORATORY Final Result [facility] [address] [place] [address], * (ABNORMAL) BASIC METABOLIC PANEL (12/01/2023 5:43 AM CDT) GLUCOSE 173(H) 70 - 99 MG/DL 12/01/2023 6:16 AM CDT [facility] BUN 15 7 - 18 MG/DL 12/01/2023 6:16 AM CDT [facility] CREATININE S/P/B 0.90 0.55 - 1.02 MG/DL 12/01/2023 6:16 AM CDT [facility] SODIUM S/P/B 139 136 - 145 MMOL/L 12/01/2023 6:16 AM CDT [facility] POTASSIUM S/P/B 3.8 3.5 - 5.1 MMOL/L 12/01/2023 6:16 AM CDT [facility] CHLORIDE S/P/B 107 97 - 115 MMOL/L 12/01/2023 6:16 AM CDT [facility] CO2 29.3 21 - 32 MMOL/L 12/01/2023 6:16 AM CDT [facility] CALCIUM S/P/B 8.7 8.5 - 10.1 MG/DL 12/01/2023 6:16 AM CDT [facility] ANION GAP 2.7 2 - 10 MMOL/L 12/01/2023 6:16 AM CDT [facility] BUN CREATININE RATIO 16.7 6 - 26 12/01/2023 6:16 AM CDT [facility] GFR ESTIMATE 77(L) >90 ML/MIN/1.7 3 M2 12/01/2023 6:16 AM CDT [facility] Comment: NOTE: eGFR is not calculated for patients <18 years of age or gender unknown. This is an estimated GFR calculation using the new CKD EPI creatinine equation without race and so does not require a correction factor for race. This estimated GFR should not be used for calculating drug doses. 12/01/2023 5:43 AM CDT Arlene Conley PA-C LABORATORY Final Result Performing Organization Address City/[facility]/ZIP Co de Phone Number [facility] [address] [place] [address], [place] [phone] * (ABNORMAL) POCT glucose (11/30/2023 7:45 PM CDT) GLUCOSE POC 219(H) 70 - 99 mg/dL 11/30/2023 7:54 PM CDT [facility] 11/30/2023 7:45 PM CDT Arlene Conley PA-C POCT ORDERABLES - DEVICE Final Result Performing Organization Address [facility] Co de Phone Number [facility] [address] [place] [address], [place] [phone] * (ABNORMAL) CBC W/DIFF AUTOMATED (11/30/2023 6:10 PM CDT) WBC 8.83 4.5 - 11.0 x10'3/uL 11/30/2023 6:43 PM CDT [facility] RBC 3.68(L) 4.20 - 5.40 x10'6/uL 11/30/2023 6:43 PM CDT [facility] HGB 11.1(L) 12.0 - 16.0 G/DL 11/30/2023 6:43 PM CDT [facility] HCT 32.8(L) 38.0 - 48.0 % 11/30/2023 6:43 PM CDT [facility] MCV 89.1 81.0 - 99.0 FL 11/30/2023 6:43 PM CDT [facility] MCH 30.2 27.0 - 31.0 PG 11/30/2023 6:43 PM CDT [facility] MCHC 33.8 32.0 - 36.0 G/DL 11/30/2023 6:43 PM CDT [facility] RDW 12.9 11.5 - 14.5 % 11/30/2023 6:43 PM CDT [facility] PLT 254 130 - 400 x10'3/uL 11/30/2023 6:43 PM CDT [facility] MPV 11.1 9.3 - 12.2 FL 11/30/2023 6:43 PM CDT [facility] DIFFERENTIAL TYPE AUTOMATED DIFFERENTIAL 11/30/2023 6:43 PM CDT [facility] NEUTROPHILS % 59.9 % 11/30/2023 6:43 PM CDT [facility] LYMPHOCYTES % 32.3 % 11/30/2023 6:43 PM CDT [facility] MONOCYTES % 5.5 % 11/30/2023 6:43 PM CDT [facility] EOSINOPHILS 1.4 % 11/30/2023 6:43 PM CDT [facility] BASOPHILS 0.6 % 11/30/2023 6:43 PM CDT [facility] IMMATURE GRANS % 0.3 % 11/30/19 6:43 PM CDT [facility] ABS. NEUTROPHILS 5.29 1.80 - 7.70 x10'3/uL 11/30/2023 6:43 PM CDT [facility] ABS. LYMPHOCYTES 2.85 1.00 - 4.80 x10'3/uL 11/30/2023 6:43 PM CDT [facility] ABS. MONOCYTES 0.49 0.24 - 0.86 x10'3/uL 11/30/2023 6:43 PM CDT [facility] ABS. EOSINOPHILS 0.12 0.04 - 0.36 x10'3/uL 11/30/2023 6:43 PM CDT [facility] ABS. BASOPHILS 0.05 0.01 - 0.08 x10'3/uL 11/30/2023 6:43 PM CDT [facility] ABS. IMMATURE GRANULOCYTES 0.03 0.00 - 0.49 x10'3/uL 11/30/2023 6:43 PM CDT [facility] 11/30/2023 6:10 PM CDT Arlene Conley PA-C LABORATORY Final Result [facility] [address] [place] [address], * (ABNORMAL) BASIC METABOLIC PANEL (11/30/2023 6:10 PM CDT) Pathologist [facility] [place] GLUCOSE 242(H) 70 - 99 MG/DL 11/30/2023 6:52 PM CDT [facility] BUN 15 7 - 18 MG/DL 11/30/2023 6:52 PM CDT [facility] CREATININE S/P/B 1.13(H) 0.55 - 1.02 MG/DL 11/30/2023 6:52 PM CDT [facility] SODIUM S/P/B 138 136 - 145 MMOL/L 11/30/2023 6:52 PM CDT [facility] POTASSIUM S/P/B 3.8 3.5 - 5.1 MMOL/L 11/30/2023 6:52 PM CDT [facility] CHLORIDE S/P/B 106 97 - 115 MMOL/L 11/30/2023 6:52 PM CDT [facility] CO2 27.5 21 - 32 MMOL/L 11/30/2023 6:52 PM CDT [facility] CALCIUM S/P/B 8.8 8.5 - 10.1 MG/DL 11/30/2023 6:52 PM CDT [facility] ANION GAP 4.5 2 - 10 MMOL/L 11/30/2023 6:52 PM CDT [facility] BUN CREATININE RATIO 13.3 6 - 26 11/30/2023 6:52 PM CDT [facility] GFR ESTIMATE 59(L) >90 ML/MIN/1.7 3 M2 11/30/2023 6:52 PM CDT [facility] Comment: NOTE: eGFR is not calculated for patients <18 years of age or gender unknown. This is an estimated GFR calculation using the new CKD EPI creatinine equation without race and so does not require a correction factor for race. This estimated GFR should not be used for calculating drug doses. 11/30/2023 6:10 PM CDT us Arlene Conley PA-C LABORATORY Final Result [facility] [address] [place] [address], * (ABNORMAL) POCT glucose (11/30/2023 3:47 PM CDT) [facility] GLUCOSE POC 205(H) 70 - 99 mg/dL 11/30/2023 3:55 PM CDT [facility] 11/30/2023 3:47 PM CDT Arlene MARIE-C POCT ORDERABLES - DEVICE Final Result Performing Organization Address City/[facility] Co de Phone Number [facility] [address] [place] [address], [place] [phone] * (ABNORMAL) POCT glucose (11/30/2023 12:05 PM CDT) GLUCOSE POC 245(H) 70 - 99 mg/dL 11/30/2023 12:22 PM CDT [facility] 11/30/2023 12:0 5 PM CDT Arlene MARIE-C POCT ORDERABLES - DEVICE Final Result Performing Organization Address [facility] Co de Phone Number [facility] [address] [place] [address], [place] [phone] * (ABNORMAL) POCT glucose (11/30/2023 6:22 AM CDT) GLUCOSE POC 168(H) 70 - 99 mg/dL 11/30/2023 6:36 AM CDT [facility] 11/30/2023 6:22 AM CDT Arlene MARIE-Angelique POCT ORDERABLES - DEVICE Final Result Performing Organization Address City/[facility] Co de Phone Number [facility] [address] [place] [address], [place] [phone] * (ABNORMAL) POCT glucose (11/29/2023 7:51 PM CDT) GLUCOSE POC 209(H) 70 - 99 mg/dL 11/29/2023 7:53 PM CDT [facility] 11/29/2023 7:51 PM CDT Arlene Mitchell Vanesa PA-C POCT ORDERABLES - DEVICE Final Result [facility] [address] [place] [address], [place] [phone] * (ABNORMAL) POCT glucose (11/29/2023 4:53 PM CDT) GLUCOSE POC 158(H) 70 - 99 mg/dL 11/29/2023 7:53 PM CDT [facility] 11/29/2023 4:53 PM CDT Arlene Slateri PA-C POCT ORDERABLES - DEVICE Final Result Performing Organization Address City/[facility]/ZIP Co de Phone Number [facility] [address] [place] [id number], [place] [phone] * (ABNORMAL) POCT glucose (11/29/2023 11:48 AM CDT) GLUCOSE POC 112(H) 70 - 99 mg/dL 11/29/2023 11:51 AM CDT [facility] 11/29/2023 11:4 8 AM CDT Arlene Mtichell Vanesa PA-C POCT ORDERABLES - DEVICE Final Result [facility] [address] [place] [address], [place] [phone] * (ABNORMAL) POCT glucose (11/29/2023 6:46 AM CDT) GLUCOSE POC 120(H) 70 - 99 mg/dL 11/29/2023 6:49 AM CDT [facility] 11/29/2023 6:46 AM CDT Arlene Conley PA-C POCT ORDERABLES - DEVICE Final Result [facility] [address] [place] [address], [place] [phone] * (ABNORMAL) POCT glucose (11/29/2023 3:17 AM CDT) GLUCOSE POC 107(H) 70 - 99 mg/dL 11/29/2023 3:30 AM CDT [facility] 11/29/2023 3:17 AM CDT Janneth MARIE POCT ORDERABLES - DEVICE Katheryn l Result [facility] [address] [place] [address], [place] [phone] * CULTURE BACTERIA, BLOOD (11/29/2023 2:28 AM CDT) SPEC DESCRIPTION BLOOD 11/29/2023 1:33 AM CDT [facility] SPECIAL REQUESTS NO SPECIAL REQUEST 11/29/2023 1:33 AM CDT [facility] CULTURE RESULT NO GROWTH 5 DAYS 12/04/2023 9:04 AM CDT [facility] BLOOD SPECIMEN OBTAINED FOR BLOOD CULTURE / Unknown 11/29/2023 2:28 AM CDT 11/29/2023 2:33 AM CDT Janneth MARIE MICROBIOLOGY - GENERAL ORDERA BLES Final Result Performing Organization Address City/[facility]/ZIP Co de Phone Number [facility] [address] [place] [id number], [place] [phone] * LACTIC ACID W REFLEX (SEPSIS) (11/29/2023 1:54 AM CDT) LACTIC ACID VENOUS 1.1 0.4 - 2.0 MMOL/L 11/29/2023 2:26 AM CDT [facility] 11/29/2023 1:54 AM CDT Janneth [facility] Final Result Performing Organization Address [facility] de Phone Number [facility] [address] [place] [address], [place] [phone] * CT ABD+PEL W CON (11/29/2023 1:33 AM CDT) Anatomical Region Laterality Modality Abdomen Computed Tomogra phy 11/29/2023 1:40 AM CDT Impressions 11/29/2023 1:54 AM CDT IMPRESSION: 1. ??Essentially unchanged appearance of chronic right hydronephrosis, with suggestion of obstruction at the UPJ. Suggestion of nonspecific inflammatory change in right renal pelvis, possibly infectious. No evidence of acute pyelonephritis. 2. ??Redemonstration of multiple bilateral nonobstructing renal calculi. 3. ??Other chronic/nonurgent findings, as above. Referred By: ?? Interpreted By: Jeromy Massey MD, 11/29/2023 1:40 AM Narrative 11/29/2023 1:54 AM CDT [facility] [address] INDICATION: Right flank and abdominal pain, chronic dysuria COMPARISON: CT abdomen/pelvis, 05 Mar 2023 TECHNIQUE: CT images of the abdomen and pelvis were obtained following the administration of IV contrast. Radiation dose reduction technique utilized. FINDINGS: Limited visualization of the lower thorax reveals no acute abnormality. Normal size liver. No suspicious hepatic lesion. Probable biliary sludge in gallbladder. Hepatic veins, main portal vein, splenic vein, SMV, and SMA enhance. Atherosclerosis of the abdominal and pelvic vasculature. No retroperitoneal lymphadenopathy. No evidence of bowel obstruction or inflammation. Normal appearing appendix. No free gas in the abdomen or pelvis. No mesenteric lymphadenopathy. Stomach and duodenum within normal limits. Normal size spleen. Incidental note of benign, calcified splenic granulomata. Unchanged 0.7 cm hypoattenuating focus in along superior aspect of the spleen, possibly representing a benign simple cyst. Pancreas within normal limits. Adrenal glands within normal limits. Redemonstration of right hydronephrosis and cortical atrophy. Enhancement pattern in the right renal pelvis suggests inflammation. No renal cortical enhancement abnormality identified. Right ureter appears within normal limits. No left hydronephrosis or hydroureter. Redemonstration of bilateral nonobstructing renal calculi measuring up to 0.2 cm on the right and 0.2 cm on the left. Urinary bladder within normal limits for degree of distention. Hysterectomy. Incidental note of benign pelvic phleboliths. No pelvic lymphadenopathy or significant free fluid. 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 Chronic multilevel degenerative changes of the spine. Visualized body wall exhibits no acute abnormality. Procedure Note Jeromy Massey MD - 11/29/[address] [address] INDICATION: Right flank and abdominal pain, chronic dysuria COMPARISON: CT abdomen/pelvis, 05 Mar 2023 TECHNIQUE: CT images of the abdomen and pelvis were obtained following theadministration of IV contrast. Radiation dose reduction techniqueutilized. FINDINGS: Limited visualization of the lower thorax reveals no acute abnormality. Normal size liver. No suspicious hepatic lesion. Probable biliary sludgein gallbladder. Hepatic veins, main portal vein, splenic vein, SMV, andSMA enhance. Atherosclerosis of the abdominal and pelvic vasculature. Noretroperitoneal lymphadenopathy. No evidence of bowel obstruction or inflammation. Normal appearingappendix. No free gas in the abdomen or pelvis. No mesentericlymphadenopathy. Stomach and duodenum within normal limits. Normal size spleen. Incidentalnote of benign, calcified splenic granulomata. Unchanged 0.7 cmhypoattenuating focus in along superior aspect of the spleen, possiblyrepresenting a benign simple cyst. Pancreas within normal limits. Adrenalglands within normal limits. Redemonstration of right hydronephrosis and cortical atrophy. Enhancementpattern in the right renal pelvis suggests inflammation. No renal corticalenhancement abnormality identified. Right ureter appears within normallimits. No left hydronephrosis or hydroureter. Redemonstration of bilateral nonobstructing renal calculi measuring up to0.2 cm on the right and 0.2 cm on the left. Urinary bladder within normal limits for degree of distention. Hysterectomy. Incidental note of benign pelvic phleboliths. No pelviclymphadenopathy or significant free fluid. 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 Chronic multilevel degenerative changes of the spine. Visualized body wall exhibits no acute abnormality. IMPRESSION: 1. Essentially unchanged appearance of chronic right hydronephrosis, withsuggestion of obstruction at the UPJ. Suggestion of nonspecificinflammatory change in right renal pelvis, possibly infectious. Noevidence of acute pyelonephritis. 2. Redemonstration of multiple bilateral nonobstructing renal calculi. 3. Other chronic/nonurgent findings, as above. Referred By: Interpreted By: Jeromy Massey MD, 11/29/2023 1:40 AM us Janneth MARIE CT Final Result * LIPASE (11/29/2023 12:13 AM CDT) LIPASE 32 13 - 75 UNITS/L 11/29/2023 12:53 AM CDT [facility] 11/29/2023 12:1 3 AM CDT Jann[facility] Final Result [facility] [address] [place] [address], [place] [phone] * (ABNORMAL) COMPREHENSIVE METABOLIC PANEL (11/29/2023 12:13 AM CDT) [facility] GLUCOSE 144(H) 70 - 99 MG/DL 11/29/2023 12:53 AM CDT [facility] BUN 17 7 - 18 MG/DL 11/29/2023 12:53 AM CDT [facility] CREATININE S/P/B 1.18(H) 0.55 - 1.02 MG/DL 11/29/2023 12:53 AM CDT [facility] SODIUM S/P/B 140 136 - 145 MMOL/L 11/29/2023 12:53 AM CDT [facility] POTASSIUM S/P/B 3.7 3.5 - 5.1 MMOL/L 11/29/2023 12:53 AM CDT [facility] CHLORIDE S/P/B 105 97 - 115 MMOL/L 11/29/2023 12:53 AM CDT [facility] CO2 29.7 21 - 32 MMOL/L 11/29/2023 12:53 AM CDT [facility] CALCIUM S/P/B 9.4 8.5 - 10.1 MG/DL 11/29/2023 12:53 AM CDT [facility] BILIRUBIN TOTAL S/P/B 0.3 0.2 - 1.2 MG/DL 11/29/2023 12:53 AM CDT [facility] Comment: THIS ASSAY IS NOT RECOMMENDED FOR PATIENTS UNDERGOING TREATMENT WITH ELTROMBOPAG DUE TO THE POTENTIAL FOR FALSELY ELEVATED RESULTS. TOTAL PROTEIN S/P/B 9.3(H) 6.4 - 8.2 G/DL 11/29/2023 12:53 AM CDT [facility] ALBUMIN S/P/B 3.6 3.4 - 5.0 G/DL 11/29/2023 12:53 AM CDT [facility] AST 20 15 - 37 U/L 11/29/2023 12:53 AM CDT [facility] ALT 24 14 - 55 U/L 11/29/2023 12:53 AM CDT [facility] ALKALINE PHOSPHATASE S/P/B 163(H) 50 - 136 U/L 11/29/2023 12:53 AM CDT [facility] ANION GAP 5.3 2 - 10 MMOL/L 11/29/2023 12:53 AM T [facility] BUN CREATININE RATIO 14.4 6 - 26 11/29/2023 12:53 AM T [facility] A/G RATIO 0.6(L) 1.0 - 2.0 RATIO 11/29/2023 12:53 AM T [facility] GFR ESTIMATE 56(L) >90 ML/MIN/1.7 3 M2 11/29/2023 12:53 AM T [facility] Comment: NOTE: eGFR is not calculated for patients <18 years of age or gender unknown. This is an estimated GFR calculation using the new CKD EPI creatinine equation without race and so does not require a correction factor for race. This estimated GFR should not be used for calculating drug doses. 11/29/2023 12:1 3 AM CDT us Janneth [facility] Final Result [facility] [address] [place] [address], * CBC W/DIFF AUTOMATED (11/29/2023 12:13 AM CDT) [facility] WBC 9.99 4.5 - 11.0 x10'3/uL 11/29/2023 12:26 AM CDT [facility] RBC 4.30 4.20 - 5.40 x10'6/uL 11/29/2023 12:26 AM CDT [facility] HGB 13.0 12.0 - 16.0 G/DL 11/29/2023 12:26 AM CDT [facility] HCT 38.5 38.0 - 48.0 % 11/29/2023 12:26 AM CDT [facility] MCV 89.5 81.0 - 99.0 FL 11/29/2023 12:26 AM CDT [facility] MCH 30.2 27.0 - 31.0 PG 11/29/2023 12:26 AM CDT [facility] MCHC 33.8 32.0 - 36.0 G/DL 11/29/2023 12:26 AM CDT [facility] RDW 13.2 11.5 - 14.5 % 11/29/2023 12:26 AM CDT [facility] PLT 290 130 - 400 x10'3/uL 11/29/2023 12:26 AM CDT [facility] MPV 11.6 9.3 - 12.2 FL 11/29/2023 12:26 AM CDT [facility] DIFFERENTIAL TYPE AUTOMATED DIFFERENTIAL 11/29/2023 12:26 AM CDT [facility] NEUTROPHILS % 55.2 % 11/29/2023 12:26 AM CDT [facility] LYMPHOCYTES % 38.3 % 11/29/2023 12:26 AM CDT [facility] MONOCYTES % 3.8 % 11/29/2023 12:26 AM CDT [facility] EOSINOPHILS 1.7 % 11/29/2023 12:26 AM CDT [facility] BASOPHILS 0.7 % 11/29/2023 12:26 AM CDT [facility] IMMATURE GRANS % 0.3 % 11/29/19 12:26 AM CDT [facility] ABS. NEUTROPHILS 5.51 1.80 - 7.70 x10'3/uL 11/29/2023 12:26 AM CDT [facility] ABS. LYMPHOCYTES 3.83 1.00 - 4.80 x10'3/uL 11/29/2023 12:26 AM CDT [facility] ABS. MONOCYTES 0.38 0.24 - 0.86 x10'3/uL 11/29/2023 12:26 AM CDT [facility] ABS. EOSINOPHILS 0.17 0.04 - 0.36 x10'3/uL 11/29/2023 12:26 AM CDT [facility] ABS. BASOPHILS 0.07 0.01 - 0.08 x10'3/uL 11/29/2023 12:26 AM CDT [facility] ABS. IMMATURE GRANULOCYTES 0.03 0.00 - 0.49 x10'3/uL 11/29/2023 12:26 AM CDT [facility] 11/29/2023 12:1 3 AM CDT us Janneth [facility] Final Result [facility] [address] [place] [address], [place] [phone] * (ABNORMAL) URINE BACTERIA CULTURE (11/28/2023 10:35 PM CDT) SPEC DESCRIPTION URINE CLEAN CATCH 11/28/2023 10:40 PM CDT [facility] SPECIAL REQUESTS NO SPECIAL REQUEST 11/28/2023 10:40 PM CDT [facility] CULTURE RESULT 50,000-100,000 COL/ML ENTEROCOCCUS SPECIES (A) 12/01/2023 8:07 AM CDT [facility] CULTURE RESULT POLYMICROBIAL GROWTH CONSISTENT WITH NORMAL GENITAL AIDEN. ?? SUSCEPTIBILITIES NOT ROUTINELY PERFORMED. 12/01/2023 8:07 AM CDT [facility] URINE SPECIMEN OBTAINED BY CLEAN CATCH PROCEDURE / Unknown 11/28/2023 10:35 PM CDT 11/28/2023 10:42 PM CDT Narrative Organism Antibiotic Method Susceptibility Enterococcus species AMPICILLIN JESSI (VITEK) <=2: Sensitive Enterococcus species NITROFURANTOIN JESSI (VITEK) <=16: Sensitive Enterococcus species GENT. SYNERGY SCREEN JESSI (VITEK) Resistant Enterococcus species PENICILLIN G JESSI (VITEK) 2: Sensitive us Janneth MARIE MICROBIOLOGY - GENERAL ORDERA BLES Final Result [facility] [address] [place] [address], [place] [phone] * (ABNORMAL) URINALYSIS (11/28/2023 10:35 PM CDT) SPECIMEN TYPE URINE CLEAN CATCH 11/28/2023 10:40 PM CDT [facility] COLOR (U) YELLOW 11/29/2023 12:26 AM CDT [facility] TRANSPARENCY TURBID 11/29/2023 12:26 AM CDT [facility] SPECIFIC GRAVITY (U) 1.014 1.001 - 1.030 11/29/2023 12:26 AM CDT [facility] U PH 6.0 5.0 - 9.0 11/29/2023 12:26 AM CDT [facility] LEUKOCYTES (U) 500(A) NEGATIVE 11/29/2023 12:26 AM T [facility] NITRITES NEGATIVE NEGATIVE 11/29/2023 12:26 AM T [facility] PROTEIN RANDOM (U) 200(H) <30 MG/DL 11/29/2023 12:26 AM T [facility] GLUCOSE (U) 50(A) NORMAL MG/DL 11/29/2023 12:26 AM CDT [facility] KETONES MG/DL (U) NEGATIVE NEGATIVE MG/DL 11/29/2023 12:26 AM CDT [facility] UROBILINOGEN NORMAL NORMAL MG/DL 11/29/2023 12:26 AM T [facility] BILIRUBIN (U) NEGATIVE NEGATIVE MG/DL 11/29/2023 12:26 AM CDT [facility] BLOOD (U) 1+(A) NEGATIVE 11/29/2023 12:26 AM CDT [facility] WBC/HPF >100(H) <6 /HPF 11/29/2023 12:26 AM T [facility] RBC/HPF 10(H) <6 /HPF 11/29/2023 12:26 AM T [facility] BACTERIA (U) RARE(A) NONE /HPF 11/29/2023 12:26 AM CDT [facility] SQUAMOUS EPITHELIALS MANY /HPF 11/29/2023 12:26 AM T [facility] URINE SPECIMEN OBTAINED BY CLEAN CATCH PROCEDURE / Unknown 11/28/2023 10:35 PM CDT us Janneth MARIE URINE ORDERABLES Final Result [facility] [address] [place] [address], [place] [phone] documented in this encounter Visit Diagnoses Diagnosis UTI (urinary tract infection)- Primary Urinary tract infection, site not specified UTI (urinary tract infection) Urinary tract infection, site not specified Pyelitis Pyelonephritis, unspecified documented in this encounter Admitting Diagnoses Diagnosis UTI (urinary tract infection) Urinary tract infection, site not specified documented in this encounter Administered Medications Inactive Administered Medications - up to 3 most recent administrations Medication Order MAR Action Action Date Dose Rate Site acetaminophen (TYLENOL) tablet 650 mg 650 mg, Oral, Every 4 hours PRN, Mild pain (Scale 1 - 3), Headaches, Fever, Discomfort, Starting on Viky 11/29/23 at 0222, Until 12/02/23 at 1247, Maximum dose of acetaminophen is 4000 mg from all sources in 24 hours. Given 12/01/2023 5:42 PM CDT 650 mg amLODIPine (NORVASC) tablet 10 mg 10 mg, Oral, Nightly at bedtime, First dose on Viky 11/29/23 at 2100, Until Discontinued Given 12/01/2023 8:36 PM CDT 10 mg Given 11/30/2023 8:18 PM CDT 10 mg Given 11/29/2023 8:46 PM CDT 10 mg atorvastatin (LIPITOR) tablet 20 mg 20 mg, Oral, Nightly at bedtime, First dose on Viky 11/29/23 at 2100, Until Discontinued Given 12/01/2023 8:36 PM CDT 20 mg Given 11/30/2023 8:18 PM CDT 20 mg Given 11/29/2023 8:46 PM CDT 20 mg cetirizine (ZyrTEC) tablet 10 mg 10 mg, Oral, Daily, First dose on Viky 11/29/23 at 0515, Until Discontinued Given 12/02/2023 8:32 AM CDT 10 mg Given 11/29/2023 5:06 AM CDT 10 mg dextrose 10 % bolus infusion 125-250 mL 125-250 mL, Intravenous, Administer over 15 Minutes, As needed, Low Blood Sugar, Starting on Viky 11/29/23 at 0222, Until 12/02/23 at 1247, If patient is verbally responsive and NPO or unable to swallow: Blood glucose less than 50 mg/dL - give 250 mL (25 g) and repeat until blood glucose reaches 70 mg/dL Blood glucose 50-69 mg/dL - give 125 mL (12.5 g) and repeat until blood glucose reaches 70 mg/dL If patient is verbally Unresponsive and NPO or unable to swallow: Blood glucose less than 70 mg/dL - give 250 mL (25 g), repeat until blood glucose reaches 70 mg/dL docusate sodium (COLACE) capsule 100 mg 100 mg, Oral, 2 times daily PRN, Constipation, Starting on Sun11/29/23 at 0222, Until 12/02/23 at 1247 glucagon injection 1 mg 1 mg, Intramuscular, Once as needed, Other, Low blood sugar, 1 dose, Starting on Sun11/29/23 at 0222, Until 12/02/23 at 1247, If patient is verbally UNresponsive and no IV access with blood glucose less than 70 mg/dL. Do NOT repeat administration. glucose oral gel 32-64 mL 32-64 mL (15-30 g of dextrose), Oral, As needed, Low blood sugar, Starting on Sun11/29/23 at 0222, Until 12/02/23 at 1247, If patient is verbally responsive and taking thickened liquids or oral medications: Blood glucose less than 50 mg/dL - give 30 g of dextrose; repeat until blood glucose reaches 70 mg/dL Blood glucose 50-69 mg/dL - give 15 g of dextrose; repeat until blood glucose reaches 70 mg/dL 32 mL of glucose gel = 15 g of dextrose heparin (porcine) injection 5,000 Units 5,000 Units, Subcutaneous, Every 12 hours scheduled (2 times per day), First dose on Sun11/29/23 at 0900, Until Discontinued Given 12/02/2023 8:32 AM CDT 5,000 Units Right Lower Abdomen Given 12/01/2023 8:37 PM CDT 5,000 Units L eft Lower Abdomen Given 12/01/2023 8:29 AM CDT 5,000 Units L eft Lower Abdomen hydrALAZINE (APRESOLINE) injection 10 mg 10 mg, Intravenous, Every 6 hours PRN, Other, Sbp>160 or dbp>90, Starting on Sun11/30/23 at 0442, Until 12/02/23 at 1247, Monitor HR and BP before dose and 15 min after IV dose. For IV push give over 1-2 minutes=5mg/min. Given 11/30/2023 5:04 AM CDT 10 mg HYDROcodone-acetaminophen (NORCO) 5-325 MG tablet 1 tablet 1 tablet, Oral, Every 4 hours PRN, Moderate pain (Scale 4 - 7), Starting on Viky 11/29/23 at 0222, Until Sun12/02/23 at 1247, Maximum dose of acetaminophen is 4000 mg from all sources in 24 hours. HYDROmorphone (DILAUDID) injection 0.2 mg 0.2 mg, Intravenous, Every 2 hours PRN, Severe pain (Scale 8 - 10), Starting on Sun11/29/23 at 0223, Until Sun12/02/23 at 1247, Administer slowly over at least 2-3 minutes. Given 12/01/2023 8:37 PM CDT 0.2 mg Given 11/30/2023 8:26 PM CDT 0.2 mg Given 11/30/2023 6:15 PM CDT 0.2 mg insulin aspart protamine-insulin aspart (NOVOLOG 70/30) injection 30 Units 30 Units, Subcutaneous, Once, 1 dose, On Sun11/30/23 at 2100 Given 11/30/2023 8:19 PM CDT 30 Units Left Lower Abdomen insulin aspart protamine-insulin aspart (NOVOLOG 70/30) injection 60 Units 60 Units, Subcutaneous, Every evening, First dose (after last modification) on [facility] 12/01/23 at 2100, Until Discontinued Given 12/01/2023 8:36 PM CDT 60 Units Left Lower Abdomen insulin aspart protamine-insulin aspart (NOVOLOG 70/30) injection 70 Units 70 Units, Subcutaneous, Every morning, First dose (after last modification) on [facility] 12/01/23 at 0700, Until Discontinued Given 12/02/2023 8:31 AM CDT 70 Units Right Lower Abdomen Given 12/01/2023 8:30 AM CDT 70 Units Le ft Arm insulin lispro (HUMALOG/ADMELOG) injection 0-14 Units 0-14 Units, Subcutaneous, 3 times daily before meals, First dose on Sun11/29/23 at 0700, Until Discontinued, Blood Glucose (SENSITIVE Dosing): [Less than 70:? Initiate Hypoglycemia Standing Orders] [71-140: 0 units] [141-180: 2 units] [181-220: 4 units] [221-260: 6 units] [261-300: 8 units] [301-350: 10 units] [351-400: 12 units] [Greater than 400: 14 units and Call Physician] Given 12/01/2023 5:41 PM CDT 2 Units Left Arm Given 12/01/2023 8:31 AM CDT 2 Units Le ft Arm Given 11/30/2023 4:36 PM CDT 4 Units Ri ght Arm insulin lispro (HUMALOG/ADMELOG) injection 0-7 Units 0-7 Units, Subcutaneous, Nightly at bedtime, First dose on Viky 11/29/23 at 0230, Until Discontinued, Blood Glucose (SENSITIVE Dosing): [Less than 70:? Initiate Hypoglycemia Standing Orders] [71-180: ? 0 units] [181-220:? 2 units] [221-260:? 3 units] [261-300:? 4 units] [301-350:? 5 units] [351-400:? 6 units] [Greater than 400:? 7 units and Call Physician] Given 12/01/2023 8:37 PM CDT 3 Units Left Lower Abdomen Given 11/30/2023 8:19 PM CDT 2 Units Le ft Lower Abdomen Given 11/29/2023 8:47 PM CDT 2 Units Ri ght Lower Abdomen iopamidol (ISOVUE-370) 76 % injection 100 mL 100 mL, Intravenous, IMG once as needed, Contrast, 1 dose, Starting on Viky 11/29/23 at 0133, Until Viky 11/29/23 at 0133 Given 11/29/2023 1:33 AM CDT 100 mLs lactated ringers infusion at 100 mL/hr, Intravenous, Continuous, Starting on Viky 11/29/23 at 0230, Until Viky 11/29/23 at 1229 New Bag 11/29/2023 5:06 AM CDT 100 mL/hr linaCLOtide (LINZESS) capsule 145 mcg 145 mcg, Oral, Every morning before breakfast, First dose (after last reorder) on Sun11/30/23 at 0700, Until Discontinued, Take on an empty stomach at least 30 minutes prior to first meal of the day. Swallow whole. Do not open capsule or chew. Given 11/30/2023 6:31 AM CDT 145 mcg linezolid (ZYVOX) tablet 600 mg 600 mg, Oral, Every 12 hours scheduled (2 times per day), First dose on 12/01/23 at 2100, Until Discontinued Given 12/02/2023 8:32 AM CDT 600 mg Given 12/01/2023 8:36 PM CDT 600 mg morphine injection 2 mg 2 mg, Intravenous, Once, 1 dose, On Viky 11/29/23 at 0130 Given 11/29/2023 1:50 AM CDT 2 mg naLOXone (NARCAN) injection 0.4 mg 0.4 mg, Intravenous, As needed, Opioid reversal, Starting on Viky 11/29/23 at 0222, Until 12/02/23 at 1247 ondansetron (ZOFRAN) injection 4 mg 4 mg, Intravenous, Every 6 hours PRN, Nausea, Vomiting, Starting on Viky 11/29/23 at 0222, Until 12/02/23 at 1247, IV push over 2-5 minutes. Given 12/01/2023 11:09 PM CDT 4 mg Given 11/29/2023 9:13 AM CDT 4 mg pantoprazole EC (PROTONIX) tablet 20 mg 20 mg, Oral, Daily, First dose on Viky 11/29/23 at 1115, Until Discontinued, Do not break, chew, or crush. Given 12/02/2023 8:32 AM CDT 20 mg Given 12/01/2023 8:30 AM CDT 20 mg polyethylene glycol (GLYCOLAX) packet 17 g 17 g, Oral, Daily, First dose (after last modification) on Viky 11/29/23 at 1215, Until Discontinued solifenacin (VESICARE) tablet 5 mg 5 mg, Oral, Daily, First dose on Viky 11/29/23 at 1115, Until Discontinued, Do not break, chew, or crush. Given 12/02/2023 8:32 AM CDT 5 mg Given 12/01/2023 8:30 AM CDT 5 mg Given 11/30/2023 8:06 AM CDT 5 mg tretinoin (RETIN-A) 0.05 % cream CREA 1 Application 1 Application, Apply externally, Nightly at bedtime, First dose on Sun11/29/23 at 2100, Until Discontinued, HAZARDOUS MEDICATION: wear double chemotherapy approved gloves, may need gown and eye protection if splash is concern. Given 12/01/2023 8:37 PM CDT 1 Application Given 11/30/2023 8:20 PM CDT 1 Application Given 11/29/2023 8:47 PM CDT 1 Application vancomycin (VANCOCIN) 1,750 mg in sodium chloride 0.9 % 500 mL IVPB 1,750 mg, Intravenous, at 258.8 mL/hr, Every 24 hours, First dose on Sun12/01/23 at 0800, Until Discontinued New Bag 12/01/2023 8:29 AM CDT 1,750 mg 258.8 mL/hr vancomycin (VANCOCIN) 2,000 mg in sodium chloride 0.9 % 500 mL IVPB 2,000 mg, Intravenous, at 260 mL/hr, Once, 1 dose, On Sun11/29/23 at 0215 New Bag 11/29/2023 2:33 AM CDT 2,000 mg 260 mL/hr vancomycin (VANCOCIN) 750 mg in sodium chloride 0.9 % 250 mL IVPB 750 mg, Intravenous, at 257.5 mL/hr, Every 24 hours, First dose on Sun11/30/23 at 0600, Until Discontinued New Bag 11/30/2023 6:31 AM CDT 750 mg 257.5 mL/hr vancomycin pharmacy to dose placeholder Intravenous, See admin instructions, Starting on Sun11/29/23 at 0214, Until Sun12/02/23 at 1247, Vancomycin Placeholder Only: Do NOT document administrations on this placeholder.(Use medication on APR to document administrations or contact pharmacy if medication order not entered.) documented in this encounter Active and Recently Administered Medications Times are shown in CDT. Scheduled Medication Order 11/30/2023 12/01/2023 12/02/2023 amLODIPine (NORVASC) tablet 10 mg 10 mg, Oral, Nightly at bedtime, First dose on Sun11/29/23 at 2100, Until Discontinued 2017 (Given - Provider: Jasper Coronel RN) 2035 (Given - Provider: Jasper Coronel RN) atorvastatin (LIPITOR) tablet 20 mg 20 mg, Oral, Nightly at bedtime, First dose on Sun11/29/23 at 2100, Until Discontinued 2017 (Given - Provider: Jasper Coronel RN) 2035 (Given - Provider: Jasper Coronel RN) cetirizine (ZyrTEC) tablet 10 mg 10 mg, Oral, Daily, First dose on Sun11/29/23 at 0515, Until Discontinued 806 (Not Given - Provider: Selina Ortega RN - Reason: Patient/family declined) 0900 (Not Given - Provider: June Jane RN - Reason: Patient/family declined) 08 (Given - Provider: Mary Meredith RN) heparin (porcine) injection 5,000 Units(Linked Group 1) 5,000 Units, Subcutaneous, Every 12 hours scheduled (2 times per day), First dose on Sun11/29/23 at 0900, Until Discontinued 805 (Given - Provider: Selina Ortega RN)2017 (Given - Provider: Jasper Coronel RN) 828 (Given - Provider: June Jane RN)2036 (Given - Provider: Jasper Coronel RN) 08 (Given - Provider: Mary Meredith RN) insulin aspart protamine-insulin aspart (NOVOLOG 70/30) injection 30 Units (COMPLETED) 30 Units, Subcutaneous, Once, 1 dose, On Sun11/30/23 at 2100 2018 (Given - Provider: Jasper Coronel RN) insulin aspart protamine-insulin aspart (NOVOLOG 70/30) injection 60 Units(Linked Group 2) 60 Units, Subcutaneous, Every evening, First dose (after last modification) on Sun12/01/23 at 2100, Until Discontinued 2035 (Given - Provider: Jasper Coronel RN) insulin aspart protamine-insulin aspart (NOVOLOG 70/30) injection 70 Units(Linked Group 2) 70 Units, Subcutaneous, Every morning, First dose (after last modification) on Sun12/01/23 at 0700, Until Discontinued 829 (Given - Provider: June Jane RN) 0831 (Given - Provider: Mary Meredith, DEANDRE) insulin lispro (HUMALOG/ADMELOG) injection 0-14 Units(Linked Group 3) 0-14 Units, Subcutaneous, 3 times daily before meals, First dose on Viky 11/29/23 at 0700, Until Discontinued, Blood Glucose (SENSITIVE Dosing): [Less than 70:? Initiate Hypoglycemia Standing Orders] [71-140: 0 units] [141-180: 2 units] [181-220: 4 units] [221-260: 6 units] [261-300: 8 units] [301-350: 10 units] [351-400: 12 units] [Greater than 400: 14 units and Call Physician] 0806 (Given - Provider: Selina Ortega RN)1218 (Given - Provider: Selina Ortega, RN)1636 (Given - Provider: Selina Ortega, RN) 0831 (Given - Provider: June Jane RN)1159 (Not Given - Provider: June Jane RN - Reason: Order parameters not met)1741 (Given - Provider: June Jane RN) 0712 (Not Given - Provider: Mary Meredith RN - Reason: Order parameters not met)1100 (Canceled Entry - Provider: Automatic Discharge Provider - Comment: Automatically canceled at discontinue of medication order) insulin lispro (HUMALOG/ADMELOG) injection 0-7 Units(Linked Group 3) 0-7 Units, Subcutaneous, Nightly at bedtime, First dose on Viky 11/29/23 at 0230, Until Discontinued, Blood Glucose (SENSITIVE Dosing): [Less than 70:? Initiate Hypoglycemia Standing Orders] [71-180: ? 0 units] [181-220:? 2 units] [221-260:? 3 units] [261-300:? 4 units] [301-350:? 5 units] [351-400:? 6 units] [Greater than 400:? 7 units and Call Physician] 2018 (Given - Provider: Jasper Coronel RN) 2036 (Given - Provider: Jasper Coronel RN) linaCLOtide (LINZESS) capsule 145 mcg 145 mcg, Oral, Every morning before breakfast, First dose (after last reorder) on Sun11/30/23 at 0700, Until Discontinued, Take on an empty stomach at least 30 minutes prior to first meal of the day. Swallow whole. Do not open capsule or chew. 0631 (Given - Provider: Jasper Coronel RN) 0642 (Not Given - Provider: Jasper Coronel RN - Reason: Patient/family declined) 0832 (Not Given - Provider: Mary Meredith RN - Reason: Patient/family declined) linezolid (ZYVOX) tablet 600 mg 600 mg, Oral, Every 12 hours scheduled (2 times per day), First dose on Sun12/01/23 at 2100, Until Discontinued 2035 (Given - Provider: Jasper Coronel RN) 0832 (Given - Provider: Mary Meredith RN) pantoprazole EC (PROTONIX) tablet 20 mg 20 mg, Oral, Daily, First dose on Sun11/29/23 at 1115, Until Discontinued, Do not break, chew, or crush. 0807 (Not Given - Provider: Selina Ortega RN - Reason: Patient/family declined) 0830 (Given - Provider: June Jane RN) 0832 (Given - Provider: Mary Meredith RN) polyethylene glycol (GLYCOLAX) packet 17 g 17 g, Oral, Daily, First dose (after last modification) on Sun11/29/23 at 1215, Until Discontinued 0808 (Not Given - Provider: Selina Ortega RN - Reason: Patient/family declined) 0900 (Not Given - Provider: June Jane RN - Reason: Patient/family declined) 0832 (Not Given - Provider: Mary Meredith RN - Reason: Patient/family declined) solifenacin (VESICARE) tablet 5 mg 5 mg, Oral, Daily, First dose on Viky 11/29/23 at 1115, Until Discontinued, Do not break, chew, or crush. 0806 (Given - Provider: Selina Ortega RN) 0830 (Given - Provider: June Jane RN) 0832 (Given - Provider: Mary Meredith RN) tretinoin (RETIN-A) 0.05 % cream CREA 1 Application 1 Application, Apply externally, Nightly at bedtime, First dose on Viky 11/29/23 at 2100, Until Discontinued, HAZARDOUS MEDICATION: wear double chemotherapy approved gloves, may need gown and eye protection if splash is concern. 2019 (Given - Provider: Jasper Coronel RN) 2036 (Given - Provider: Jasper Coronel RN) vancomycin (VANCOCIN) 1,750 mg in sodium chloride 0.9 % 500 mL IVPB (CANCELED) 1,750 mg, Intravenous, at 258.8 mL/hr, Every 24 hours, First dose on Sun12/01/23 at 0800, Until Discontinued 08 (New Bag - Provider: June Jane RN)1029 (Infusion Stop Time - Provider: June Jane RN) vancomycin (VANCOCIN) 750 mg in sodium chloride 0.9 % 250 mL IVPB (CANCELED) 750 mg, Intravenous, at 257.5 mL/hr, Every 24 hours, First dose on Sun11/30/23 at 0600, Until Discontinued 0631 (New Bag - Provider: Jasper Coronel RN)0748 (Infusion Stop Time - Provider: Selina Ortega RN) vancomycin pharmacy to dose placeholder(Linked Group 4) Intravenous, See admin instructions, Starting on Viky 11/29/23 at 0214, Until 12/02/23 at 1247, Vancomycin Placeholder Only: Do NOT document administrations on this placeholder.(Use medication on APR to document administrations or contact pharmacy if medication order not entered.) PRN Medication Order 11/30/2023 12/01/2023 12/02/2023 acetaminophen (TYLENOL) tablet 650 mg 650 mg, Oral, Every 4 hours PRN, Mild pain (Scale 1 - 3), Headaches, Fever, Discomfort, Starting on Viky 11/29/23 at 0222, Until 12/02/23 at 1247, Maximum dose of acetaminophen is 4000 mg from all sources in 24 hours. 174 (Given - Provider: June Jane RN) cyclobenzaprine (FLEXERIL) tablet 10 mg 10 mg, Oral, 3 times daily PRN, Muscle Spasms, Starting on Viky 11/29/23 at 1048, Until Sun12/02/23 at 1247 dextrose 10 % bolus infusion 125-250 mL 125-250 mL, Intravenous, Administer over 15 Minutes, As needed, Low Blood Sugar, Starting on Viky 11/29/23 at 0222, Until [place] 12/02/23 at 1247, If patient is verbally responsive and NPO or unable to swallow: Blood glucose less than 50 mg/dL - give 250 mL (25 g) and repeat until blood glucose reaches 70 mg/dL Blood glucose 50-69 mg/dL - give 125 mL (12.5 g) and repeat until blood glucose reaches 70 mg/dL If patient is verbally Unresponsive and NPO or unable to swallow: Blood glucose less than 70 mg/dL - give 250 mL (25 g), repeat until blood glucose reaches 70 mg/dL docusate sodium (COLACE) capsule 100 mg 100 mg, Oral, 2 times daily PRN, Constipation, Starting on Viky 11/29/23 at 0222, Until [place] 12/02/23 at 1247 glucagon injection 1 mg 1 mg, Intramuscular, Once as needed, Other, Low blood sugar, 1 dose, Starting on Viky 11/29/23 at 0222, Until [place] 12/02/23 at 1247, If patient is verbally UNresponsive and no IV access with blood glucose less than 70 mg/dL. Do NOT repeat administration. glucose oral gel 32-64 mL 32-64 mL (15-30 g of dextrose), Oral, As needed, Low blood sugar, Starting on [facility] 11/29/23 at 0222, Until [place] 12/02/23 at 1247, If patient is verbally responsive and taking thickened liquids or oral medications: Blood glucose less than 50 mg/dL - give 30 g of dextrose; repeat until blood glucose reaches 70 mg/dL Blood glucose 50-69 mg/dL - give 15 g of dextrose; repeat until blood glucose reaches 70 mg/dL 32 mL of glucose gel = 15 g of dextrose hydrALAZINE (APRESOLINE) injection 10 mg 10 mg, Intravenous, Every 6 hours PRN, Other, Sbp>160 or dbp>90, Starting on Sun11/30/23 at 0442, Until Sun12/02/23 at 1247, Monitor HR and BP before dose and 15 min after IV dose. For IV push give over 1-2 minutes=5mg/min. 0504 (Given - Provider: Jasper Coronel RN) HYDROcodone-acetaminophen (NORCO) 5-325 MG tablet 1 tablet 1 tablet, Oral, Every 4 hours PRN, Moderate pain (Scale 4 - 7), Starting on Viky 11/29/23 at 0222, Until 12/02/23 at 1247, Maximum dose of acetaminophen is 4000 mg from all sources in 24 hours. HYDROmorphone (DILAUDID) injection 0.2 mg 0.2 mg, Intravenous, Every 2 hours PRN, Severe pain (Scale 8 - 10), Starting on Viky 11/29/23 at 0223, Until 12/02/23 at 1247, Administer slowly over at least 2-3 minutes. 1814 (Given - Provider: Selina Ortega RN - Comment: threw in sharps container before scanned, charge account clerk notified)2025 (Given - Provider: Jasper Coronel RN - Comment: Wouldn't scan but given) 2036 (Given - Provider: Jasper Coronel RN) naLOXone (NARCAN) injection 0.4 mg 0.4 mg, Intravenous, As needed, Opioid reversal, Starting on Viky 11/29/23 at 0222, Until 12/02/23 at 1247 ondansetron (ZOFRAN) injection 4 mg 4 mg, Intravenous, Every 6 hours PRN, Nausea, Vomiting, Starting on Viky 11/29/23 at 0222, Until 12/02/23 at 1247, IV push over 2-5 minutes. 2309 (Given - Provider: Jasper Coronel RN) Linked Groups Order Group 1: heparin (porcine) injection 5,000 UnitsJump to med 5,000 Units, Subcutaneous, Every 12 hours scheduled (2 times per day), First dose on Viky 11/29/23 at 0900, Until Discontinued And Moderate Risk for VTE (COMPLETED) Group 2: insulin aspart protamine-insulin aspart (NOVOLOG 70/30) injection 70 UnitsJump to med 70 Units, Subcutaneous, Every morning, First dose (after last modification) on 12/01/23 at 0700, Until Discontinued And insulin aspart protamine-insulin aspart (NOVOLOG 70/30) injection 60 UnitsJump to med 60 Units, Subcutaneous, Every evening, First dose (after last modification) on [facility] 12/01/23 at 2100, Until Discontinued Group 3: insulin lispro (HUMALOG/ADMELOG) injection 0-14 UnitsJump to med 0-14 Units, Subcutaneous, 3 times daily before meals, First dose on Viky 11/29/23 at 0700, Until Discontinued, Blood Glucose (SENSITIVE Dosing): [Less than 70:? Initiate Hypoglycemia Standing Orders] [71-140: 0 units] [141-180: 2 units] [181-220: 4 units] [221-260: 6 units] [261-300: 8 units] [301-350: 10 units] [351-400: 12 units] [Greater than 400: 14 units and Call Physician] And insulin lispro (HUMALOG/ADMELOG) injection 0-7 UnitsJump to med 0-7 Units, Subcutaneous, Nightly at bedtime, First dose on Viky 11/29/23 at 0230, Until Discontinued, Blood Glucose (SENSITIVE Dosing): [Less than 70:? Initiate Hypoglycemia Standing Orders] [71-180: ? 0 units] [181-220:? 2 units] [221-260:? 3 units] [261-300:? 4 units] [301-350:? 5 units] [351- 400:? 6 units] [Greater than 400:? 7 units and Call Physician] Group 4: Pharmacy to dose vancomycin (CANCELED) Routine, Once, On Viky 11/29/23 at 0215, For 1 occurrence, Indications: Genitourinary infection And vancomycin pharmacy to dose placeholderJump to med Intravenous, See admin instructions, Starting on Viky 11/29/23 at 0214, Until [place] 12/02/23 at 1247, Vancomycin Placeholder Only: Do NOT document administrations on this placeholder.(Use medication on APR to document administrations or contact pharmacy if medication order not entered.) documented in this encounter Additional Health Concerns Assessment Noted Time PHQ-9 Depression Total Score: 0 03/08/19 22 9:30 AM TRANSMITTER ENGINEER IN CHARGE documented as of this encounter Care Teams Fixture Maker Relationship Specialty Start Date End Date Yasmin Segura II, MD [address] [place] [address] PCP - General FAMILY PRACTICE 03/09/21 [place] [address] [place] [address] PODIATRY/SURGERY 05/05/22 documented as of this encounter
--- OUTSIDE RECORDS SUMMARY | 2024-03-02 22:21 | XMS_ITS | Encounter Summary ---
Author Organization [facility] Address [address] [place] [address]. [place] [address] [place] [address] Care Team Providers Care Mucker Operator Name Role Phone Colton SILVEIRA MD, Abiodun Rushing Primary Care Provider Victoriano Langston MD Unavailable [phone] Encounter Details Date Type Department Care Team (Latest Contact Info) Description 12/13/2023 Travel Social History Tobacco Use Types Packs/Day [...] from your doctor or pharmacy? Often 11/29/2023 [facility] Utilities Answer Date Recorded In the past 12 months has e [place], [employer], or water [email or web address] threatened to shut off services in your [...] often do you attend chur ch or denominational services? Never 11/29/2023 Active Member of Clubs [...] Recorded Patient Health Questionnaire-2 Score 1 03/05/2023 [facility] - Occupational Stress [...] a nursing home (including now)? No 03/06/2023 Housing Stability [...] any time in the past 12 m [facility], were you homeless or living in a nursing home (including now)? No 11/29/2023 Comments No [...] st Contact Info) Description 03/14/2024 11:45 AM MACHINE ICER Office Visit [facility] [phone] Marvin Mckeon MD Three [facility] [address] [facility] [place], [place] [phone] 03/20/2024 11:30 AM MACHINE ICER Office Visit [facility] Family Medicine - [address] [phone] Abiodun Segura II, MD [address] [place] [id number] documented as of this encounter Goals Goal Patient Goal Type Associated Problems Recent Progress Patient-Stated? Author Family - family caregiver with be involved in care transitions and discharge planning Lifestyle Natty Angeles, RN documented as of this encounter Visit Diagnoses Not on filedocumented in this encounter Additional Health Concerns Assessment Noted Time PHQ-9 Depression Total Score: 0 03/08/19 9:30 AM MACHINE ICER documented as of this encounter Care Teams Mucker Operator Relationship Specialty Start Date End Date Abiodun Segura II, MD [address] [place] [address] PCP - General FAMILY PRACTICE 03/09/21 [place] [address] [place] [address] PODIATRY/SURGERY 05/05/22 documented as of this encounter
--- OUTSIDE RECORDS SUMMARY | 2024-03-02 22:21 | XMS_ITS | Encounter Summary ---
Author Organization [facility] Address [address] [place] [address]. [place] [address] [place] [address] Care Team Providers Care Baseball Coach Name Role Phone Colton SILVEIRA MD, Abiodun Rushing Primary Care Provider Victoriano Langston MD Unavailable [phone] Encounter Details Date Type Department Care Team (Latest Contact Info) Description 02/07/2024 Travel Social History Tobacco Use Types Packs/Day [...] In the past 12 months has e [employer], [employer], or water [employer] threatened to shut off services in your [...] often do you attend chur ch or pentecostalism services? Never 11/29/2023 Active Member of Clubs [...] Score 1 03/05/2023 [facility] Occupat ional Health - Occupational Stress [...] time in the past 12 m [facility], were you homeless or living [...] Assessment Author Status No 11/29/2023 4:33 AM Emelai Cisneros RN Active * Because of a [...] st Contact Info) Description 03/14/2024 11:45 AM MEASUREMENT AND VERIFICATION ENGINEER Office Visit [facility] [phone] Marvin Mckeon MD Three [facility] [address] [facility] [place], [place] [phone] 03/20/2024 11:30 AM MEASUREMENT AND VERIFICATION ENGINEER Office Visit [facility] Family Medicine - [address] [phone] Abiodun Segura II, MD [address] [place] [id number] documented as of this encounter Goals Goal Patient Goal Type Associated Problems Recent Progress Patient-Stated? Author Family - family caregiver with be involved in care transitions and discharge planning Lifestyle Natty Angeles, RN documented as of this encounter Visit Diagnoses Not on filedocumented in this encounter Additional Health Concerns Assessment Noted Time PHQ-9 Depression Total Score: 0 03/08/19 9:30 AM MEASUREMENT AND VERIFICATION ENGINEER documented as of this encounter Care Teams Baseball Coach Relationship Specialty Start Date End Date Abiodun Segura II, MD [address] [place] [address] PCP - General FAMILY PRACTICE 03/09/21 [place] [address] [place] [address] PODIATRY/SURGERY 05/05/22 documented as of this encounter
--- OUTSIDE RECORDS SUMMARY | 2024-03-02 22:21 | XMS_ITS | Encounter Summary ---
Author Organization [facility] Address [address] [place] [address]. [place] [address] [place] [address] Care Team Providers Care Hourly Shift Manager Name Role Phone Colton SILVEIRA MD, Abiodun Rushing Primary Care Provider Victoriano Langston MD Unavailable [phone] Reason for Referral * Imaging (Routine) - Closed Specialty Diagnoses / Procedures Referred By Contac t Referred To Contact RADIOLOGY Diagnoses Osteoarthritis of feet, bilateral Type 2 diabetes mellitus with other circulatory complications (CMS/HCC HHS/HCC) Procedures USV ART REST W ADRIANA LOW EXT USV ADRIANA LTD Hubert Schreiber DPM [address] [place] [address] Phone: tel: fax: Referral ID Status Reason Start Date Expiration Date Visits Re quested Visits Authorized [id number] Closed 02/22/2023 02/23/2024 1 1 Reason for Visit * Imaging (Routine) - Closed Specialty Diagnoses / Procedures Referred By Contac t Referred To Contact RADIOLOGY Diagnoses Osteoarthritis of feet, bilateral Type 2 diabetes mellitus with other circulatory complications ([facility]/HCC HHS/HCC) Procedures USV ART REST W ADRIANA LOW EXT USV ADRIANA LTD Hubert Schreiber DPM [address] [place] [address] Phone: tel: fax: Referral ID Status Reason Start Date Expiration Date Visits Re quested Visits Authorized [id number] Closed 02/22/2023 02/23/2024 1 1 Encounter Details Date Type Department Care Team (Latest Contact Info) Description 12/19/2023 11:34 AM CDT - 12/19/2023 11:59 PM CDT Hospital Encounter [facility] [address] [place], [place] [id number] Hubert Cummings, DPRonnie [address], [address] [place], [place] [phone] Discharge Disposition: Home or Self Care (Routine [...] from your doctor or pharmacy? Often 11/29/2023 [facility] Utilities Answer Date Recorded In the past 12 months has e [employer] gas, oil, or water [employer] threatened to shut off services in your [...] often do you attend chur ch or zoroastrian services? Never 11/29/2023 Active Member of Clubs [...] Recorded Patient Health Questionnaire-2 Score 1 03/05/2023 [facility] of Occupat ional Health - Occupational Stress [...] any time in the past 12 m [facility], were you homeless or living in [...] Cisneros RN Active documented in this encounter Medications at Time [...] arthropathy, with long-term current use of insulin (CMS/HCC HHS/HCC) Use as directed to inject insulin twice [...] arthropathy, with long-term current use of insulin (CMS/HCC HHS/HCC) 1 strip by Other route 2 (two) times daily. Use as instructed 200 strip 3 3 02/26/19 25 HUMALOG MIX 75/25 (75-25) 100 UNIT/ML SuspensionIndicatio ns:Type 2 diabetes mellitus with retinopathy, with long-term current use of insulin, macular edema presence unspecified, unspecified laterality, unspecified retinopathy severity (CMS/HCC HHS/HCC) INJECT 65 UNITS SUBCUTANEOUSLY IN THE MORNING AND 55 IN THE EVENING 40 mL 3 4 01/22/20 semaglutide (OZEMPIC) 1 mg/dose injection (PEN)Indications:Di abetes Mellitus Inject 1 mg into the skin once a week. Indications: Diabetes 3 mL 5 4 02/07/20 documented as of this encounter Plan of Treatment Upcoming Encounters Date Type Department Care Team (Late st Contact Info) Description 03/14/2024 11:45 AM PARALLEL COMPUTING SOFTWARE ENGINEER Office Visit [facility] [address] Marvin Mckeon MD [address] [place], [place] [phone] 03/20/2024 11:30 AM PARALLEL COMPUTING SOFTWARE ENGINEER Office Visit [facility] Family Medicine - [place] [address] [place] [phone] Abiodun Segura II, MD [address] [place] [address] documented as of this encounter Goals Goal Patient Goal Type Associated Problems Recent Progress Patient-Stated? Author Family - family caregiver with be involved in care transitions and discharge planning Lifestyle No Natty Cheek, RN documented as of this encounter Procedures Procedure Name Priority Date/Time Associated Diagnosis Comments USV ART REST W ADRIANA LOW EXT Routine 12/19/2023 1:28 PM CDT Osteoarthritis of feet, bilateral Type 2 diabetes mellitus with other circulatory complications ([facility]) documented in this encounter Results * USV ART REST W ADRIANA LOW EXT (12/19/2023 1:28 PM CDT) Anatomical Region Laterality Modality Extremity Vascular Ultraso und 12/19/2023 12:4 6 PM CDT Narrative 12/22/2023 7:57 PM CDT ?ARTERIAL DOPPLER - ADRIANA ?BILATERAL LOWER EXTREMITY ? VASCULAR LAB Pat.Name: ??LENA YOUNGBLOOD ?Pat.ID: ?[id number] ? St.Date: ?? 12/19/2023 ? Refer.: ??[id number], Zoila gilman Exam Time: 12:46:00 PM ? Study Type:MARINO VS Arterial Doppler Legs NOHEMY ??Age: ??1970,53Y ? Sex: ? F ? Sonogrphr: Reynaldo Blue RVT ?Pat. Stat.:Outpatient ? History / Clinical:DM, s/p left 2,3 toe amputations, bilateral foot pain Procedures: Doppler waveforms, Digit PPG, Systolic Pressures w/ADRIANA Race: ?B ? ++++++++++++++++++++++++++++++++++++ SUMMARY: ++++++++++++++++++++++++++++++++++++ Joceline ADRIANA Criteria: ? >1.30 = falsely elevated, calcified vessels; ?1.00-1.29 = no signif ischemia at rest ; ?.80-.99 = mild PAD, asymptomatic; ? .50-.79 = moderate PAD, claudication; ?<.50 = severe PAD, rest pain; ?<.30 = critical PAD, necrosis, poor healing ?(Digits: ??DBI >.60 Normal; ?? <.60 Abnormal) ? (Positive Stress eval: ??ADRIANA decrease of >.20 or >20% pressure drop) Right leg: ??Common Femoral waveform is triphasic, high amplitude; Popliteal triphasic, high amplitude; ??Posterior Tibial triphasic, medium amplitude with ADRIANA 0.857 ; ??DP/Anterior Tibial triphasic, high amplitude with ADRIANA 1.07 . ??Digit flow by PPG is high amplitude with DBI 0.802 . Left leg: ??Common Femoral waveform is triphasic, high amplitude; Popliteal triphasic, high amplitude; ??Posterior Tibial triphasic, medium amplitude with ADRIANA 0.956 ; ??DP/Anterior Tibial triphasic, high amplitude with ADRIANA 1.14 . ??Digit flow by PPG is high amplitude with DBI 0.67 . CONCLUSION: ??ADRIANA right > 1.0 with triphasic waveforms, with toe index 0.802 . ADRIANA left > 1.0 with triphasic waveforms, with toe index 0.67 . No significant peripheral arterial disease at rest. ?? Evidence of insignificant tibial artery disease bilaterally. ??There is no evidence of small vessel disease or embolism in either foot. ++++++++++++++++++++++++++++++++++++ MEASUREMENTS: ++++++++++++++++++++++++++++++++++++ ?PRESSURES Right Brachial ?? Brach P ?182 mmHg ? Right Ankle DP ?? AnkleDP P ?194 mmHg ? Right Ankle PT ?? AnklePT P ?156 mmHg ? Right Great Toe ?? GreatToe P ? 146 mmHg ? Right ADRIANA PT ?? ADRIANA PT ? 0.857 ? Right ADRIANA DP ?? ADRIANA DP ?1.07 ? Right TBI ?? TBI ?0.802 ? Left Brachial ?? Brach P ?176 mmHg ? Left Ankle DP ?? AnkleDP P ?208 mmHg ? Left Ankle PT ?? AnklePT P ?174 mmHg ? Left Great Toe ?? GreatToe P ? 122 mmHg ? Left ADRIANA PT ?? ADRIANA PT ? 0.956 ? Left ADRIANA DP ?? ADRIANA DP ?1.14 ? Left TBI ?? TBI ? 0.67 ? <Electronic Signature> 12/22/2023 07:57 PM Hubert Barrera M.D. Procedure Note Hubert Barrera MD - 12/22/2023 ARTERIAL DOPPLER - ADRIANA BILATERAL LOWER EXTREMITY VASCULAR LAB Pat.Name: FORD LENA GUZMANY Pat.ID: [id number] .Date: 12/19/2023 Hany.: [id number] Exam Time: 12:46:00 PM Study Type:MARINO VS Arterial Doppler Legs NOHEMY Age: 2 1970,53Y Sex: F Sonogrphr: Ryenaldo Blue RVT Pat. Stat.:Outpatient History / Clinical:DM, s/p left 2,3 toe amputations, bilateral foot pain Procedures: Doppler waveforms, Digit PPG, Systolic Pressures w/ADRIANA Race: B ++++++++++++++++++++++++++++++++++++ SUMMARY: ++++++++++++++++++++++++++++++++++++ Joceline ADRIANA Criteria: >1.30 = falsely elevated, calcified vessels; 1.00-1.29 = no signif ischemia at rest ; .80-.99 = mild PAD, asymptomatic; .50-.79 = moderate PAD, claudication; <.50 = severe PAD, rest pain; <.30 = critical PAD, necrosis, poor healing (Digits: DBI >.60 Normal; <.60 Abnormal) (Positive Stress eval: ADRIANA decrease of >.20 or >20% pressure drop) Right leg: Common Femoral waveform is triphasic, high amplitude; Popliteal triphasic, high amplitude; Posterior Tibial triphasic, medium amplitude with ADRIANA 0.857 ; DP/Anterior Tibial triphasic, high amplitude with ADRIANA 1.07 . Digit flow by PPG is high amplitude with DBI 0.802 . Left leg: Common Femoral waveform is triphasic, high amplitude; Popliteal triphasic, high amplitude; Posterior Tibial triphasic, medium amplitude with ADRIANA 0.956 ; DP/Anterior Tibial triphasic, high amplitude with ADRIANA 1.14 . Digit flow by PPG is high amplitude with DBI 0.67 . CONCLUSION: ADRIANA right > 1.0 with triphasic waveforms, with toe index 0.802 . ADRIANA left > 1.0 with triphasic waveforms, with toe index 0.67 . No significant peripheral arterial disease at rest. Evidence of insignificant tibial artery disease bilaterally. There is no evidence of small vessel disease or embolism in either foot. ++++++++++++++++++++++++++++++++++++ MEASUREMENTS: ++++++++++++++++++++++++++++++++++++ PRESSURES Right Brachial Brach P 182 mmHg Right Ankle DP AnkleDP P 194 mmHg Right Ankle PT AnklePT P 156 mmHg Right Great Toe GreatToe P 146 mmHg Right ADRIANA PT ADRIANA PT 0.857 Right ADRIANA DP ADRIANA DP 1.07 Right TBI TBI 0.802 Left Brachial Brach P 176 mmHg Left Ankle DP AnkleDP P 208 mmHg Left Ankle PT AnklePT P 174 mmHg Left Great Toe GreatToe P 122 mmHg Left ADRIANA PT ADRIANA PT 0.956 Left ADRIANA DP ADRIANA DP 1.14 Left TBI TBI 0.67 <Electronic Signature> 12/22/2023 07:57 PM Hubert Barrera M.D. us Hubert Cummings DPM US VASC Final Res ult documented in this encounter Visit Diagnoses Diagnosis Osteoarthritis of feet, bilateral Type 2 diabetes mellitus with other circulatory complications ([facility]/HCC HHS/HCC) documented in this encounter Additional Health Concerns Assessment Noted Time PHQ-9 Depression Total Score: 0 03/08/19 22 9:30 AM PARALLEL COMPUTING SOFTWARE ENGINEER documented as of this encounter Care Teams Hourly Shift Manager Relationship Specialty Start Date End Date Abiodun Segura II, MD [address] [place] [address] PCP - General FAMILY PRACTICE 03/09/21 [place] [address] [place] [address] PODIATRY/SURGERY 05/05/22 documented as of this encounter
--- OUTSIDE RECORDS SUMMARY | 2024-03-02 22:21 | XMS_ITS | Encounter Summary ---
Author Organization [facility] Address [address] [place] [address]. [place] [address] [place] [address] Care Team Providers Care Core Dropper Name Role Phone Colton SILVEIRA MD, Abiodun Rushing Primary Care Provider Victoriano Langston MD Unavailable [phone] Encounter Details Date Type Department Care Team (Latest Contact Info) Description 01/03/2024 Travel Social History Tobacco Use Types Packs/Day [...] from your doctor or pharmacy? Often 11/29/2023 [facility] Utilities Answer Date Recorded In the past 12 months has e [employer], or water [employer] threatened to shut off services in your [...] often do you attend chur ch or mormon services? Never 11/29/2023 Active Member of Clubs [...] Recorded Patient Health Questionnaire-2 Score 1 03/05/2023 [employer] of Occupat ional Health - Occupational Stress [...] place to sleep or slept in a fpc (including now)? No 03/06/2023 Housing Stability Vital [...] time in the past 12 m [facility], were you homeless or living in a fpc (including now)? No 11/29/2023 Comments No Sex [...] st Contact Info) Description 03/14/2024 11:45 AM PRICING SUPERVISOR Office Visit [facility] [address] Marvin Mckeon MD [facility] [address] [facility] [place], [place] [phone] 03/20/2024 11:30 AM PRICING SUPERVISOR Office Visit [facility] Family Medicine - [address] [phone] Abiodun Segura II, MD [address] [place] [address] documented as of this encounter Goals Goal Patient Goal Type Associated Problems Recent Progress Patient-Stated? Author Family - family caregiver with be involved in care transitions and discharge planning Lifestyle Natty Angeles, RN documented as of this encounter Visit Diagnoses Not on filedocumented in this encounter Additional Health Concerns Assessment Noted Time PHQ-9 Depression Total Score: 0 03/08/19 9:30 AM PRICING SUPERVISOR documented as of this encounter Care Teams Core Dropper Relationship Specialty Start Date End Date Abiodun Segura II, MD [address] [place] [address] PCP - General FAMILY PRACTICE 03/09/21 [place] [address] [place] [address] PODIATRY/SURGERY 05/05/22 documented as of this encounter
--- OUTSIDE RECORDS SUMMARY | 2024-03-02 22:21 | XMS_ITS | Encounter Summary ---
Author Organization [facility] Address [address] [place] [address]. [place], [place] [address] [place] [address] Care Team Providers Care Pathology Lab Technician Name Role Phone Colton SILVEIRA MD, Abiodun Rushing Primary Care Provider Victoriano Langston MD Unavailable [phone] Encounter Details Date Type Department Care Team (Latest Contact Info) Description 09/26/2023 Travel Social History Tobacco Use Types Packs/Day Years Used Date Smoking Tobacco: Never Smokeless Tobacco: Never Alcohol Use Standard Drinks/Week Comments Not Currently 0 (1 standard drink = 0.6 oz pur e alcohol) few times per year [facility] Utilities Answer Date Recorded In the past 12 months has e [employer], gas, oil, or water [employer] threatened to shut off services in your [...] Recorded Patient Health Questionnaire-2 Score 1 03/05/2023 [facility] of Occupat ional Health - Occupational Stress [...] st Contact Info) Description 03/14/2024 11:45 AM FOLD SKIVER Office Visit [facility] [address] Marvin Mckeon MD [facility] [address] [place] [address] 03/20/2024 11:30 AM FOLD SKIVER Office Visit [facility] Family Medicine - [place] [address] [place] [phone] Abiodun Segura II, MD [address] [place] [address] documented as of this encounter Goals Goal Patient Goal Type Associated Problems Recent Progress Patient-Stated? Author Family - family caregiver with be involved in care transitions and discharge planning Lifestyle Natty Angeles, RN documented as of this encounter Visit Diagnoses Not on filedocumented in this encounter Additional Health Concerns Assessment Noted Time PHQ-9 Depression Total Score: 0 03/08/19 9:30 AM FOLD SKIVER documented as of this encounter Care Teams Pathology Lab Technician Relationship Specialty Start Date End Date Abiodun Segura II, MD [address] [place] [address] PCP - General FAMILY PRACTICE 03/09/21 [place] [address] [place] [address] PODIATRY/SURGERY 05/05/22 documented as of this encounter
--- OUTSIDE RECORDS SUMMARY | 2024-03-02 22:21 | XMS_ITS | Encounter Summary ---
Author Organization [facility] Address [address] [place] [address]. [place], [place] [address] [place] [address] Care Team Providers Care Choir Singer Name Role Phone Colton SILVEIRA MD, Abiodun Rushing Primary Care Provider Victoriano Langston MD Unavailable [phone] Encounter Details Date Type Department Care Team (Latest Contact Info) Description 10/26/2023 Scan HEALTH INFO SRVCS Scanned, Doc Med Group Social History Tobacco Use Types Packs/Day Years Used Date Smoking Tobacco: Never Smokeless Tobacco: Never Alcohol Use Standard Drinks/Week Comments Not Currently 0 (1 standard drink = 0.6 oz pur e alcohol) few times per year [facility] Utilities Answer Date Recorded In the past 12 months has [facility] [employer], gas, oil, or water [employer] threatened to shut off services in your [...] 03/05/2023 [facility] of Occupat ional Health - [...] place to sleep or slept in a mcc (including now)? No 03/06/2023 Comments No Sex [...] st Contact Info) Description 03/14/2024 11:45 AM STOCK SHEETS CLEANER INSPECTOR Office Visit [facility]-[address] [address] Marvin Mckeon MD [facility] [address] [place] [address] 03/20/2024 11:30 AM STOCK SHEETS CLEANER INSPECTOR Office Visit [facility] Family Medicine - [place] [address] [place] [phone] Abiodun Segura II, MD [address] [place] [address] documented as of this encounter Goals Goal Patient Goal Type Associated Problems Recent Progress Patient-Stated? Author Family - family caregiver with be involved in care transitions and discharge planning Lifestyle No Natty Cheek, RN documented as of this encounter Visit Diagnoses Not on filedocumented in this encounter Additional Health Concerns Assessment Noted Time PHQ-9 Depression Total Score: 0 03/08/19 9:30 AM STOCK SHEETS CLEANER INSPECTOR documented as of this encounter Care Teams Choir Singer Relationship Specialty Start Date End Date Abiodun Segura II, MD [address] [place] [address] PCP - General FAMILY PRACTICE 03/09/21 [place] [address] [place] [address] PODIATRY/SURGERY 05/05/22 documented as of this encounter
--- OUTSIDE RECORDS SUMMARY | 2024-03-02 22:21 | XMS_ITS | Encounter Summary ---
Author Organization [facility] Address [address] [place] [address]. [place] [address] [place] [address] Care Team Providers Care Paper Steamer Name Role Phone Colton SILVEIRA MD, Abiodun Rushing Primary Care Provider Victoriano Langston MD Unavailable Encounter Details Date Type Department Care Team (Latest Contact Info) Description 11/23/2023 Scan [facility] HEALTH INFO SRVCS Scanned, Doc [...] from your doctor or pharmacy? Often 11/29/2023 [facility] Utilities Answer Date Recorded In the past 12 months has [employer], [employer], oil, or water [employer] threatened to shut off services in your [...] often do you attend chur ch or moravian services? Never 11/29/2023 Active Member of Clubs [...] Recorded Patient Health Questionnaire-2 Score 1 03/05/2023 [facility] of Occupat ional Health - Occupational [...] place to sleep or slept in a residential (including now)? No 03/06/2023 Housing Stability Vital [...] in the past 12 m [facility], were you homeless or living in a residential (including now)? No 11/29/2023 Comments No Sex and Gender Information Value Date Recorded Sex Assigned at Female 12/17/2021 2:07 AM CDT Legal Sex Female 2:58 PM CDT Gender Identity Female 12/17/2021 2:07 AM CDT Sexual Orientation Straight 12/17/2021 2: 07 AM CDT documented as of this encounter Functional Status * Question Answer Date of Assessment Author Status Do you have serious difficulty walking or climbing stairs? Yes 11/29/2023 4:33 AM CDT Emelia Jain, RN Act mando * Question Answer Date of Assessment Author Status Do you have difficulty dressing or bathing? No 11/29/2023 4:33 AM Emelia Cisneros, RN Active Because of a physical, mental, or emotional condition, do you have difficulty doing errands alone such as visiting a doctor's office or shopping? Yes 11/29/2023 4:33 AM Emelia Cisneros RN Act mando * Are you deaf or do you [...] or making decisions? No 11/29/2023 4:33 AM Emelia Cisneros RN Active * Because of a physical, mental, or emotional condition, do you have serious difficulty concentrating, remembering, or making decisions? Answer Entry Date Author Status No 03/06/2023 3:39 PM Teresa Coe RN Active documented in this encounter Plan of Treatment Upcoming Encounters Date Type Department Care Team (Late st Contact Info) Description 03/14/2024 11:45 AM COUPON REDEMPTION CLERK Office Visit [facility] [address] Marvin Mckeon MD [facility] [address] [place] [address] 03/20/2024 11:30 AM COUPON REDEMPTION CLERK Office Visit [facility] Family Medicine - [place] [address] [place] [phone] Abiodun Segura II, MD [address] [place] [address] documented as of this encounter Goals Goal Patient Goal Type Associated Problems Recent Progress Patient-Stated? Author Family - family caregiver with be involved in care transitions and discharge planning Lifestyle No Natty Cheek, RN documented as of this encounter Visit Diagnoses Not on filedocumented in this encounter Additional Health Concerns Assessment Noted Time PHQ-9 Depression Total Score: 0 03/08/19 9:30 AM COUPON REDEMPTION CLERK documented as of this encounter Care Teams Paper Steamer Relationship Specialty Start Date End Date Abiodun Segura II, MD [address] [place] [address] PCP - General FAMILY PRACTICE 03/09/21 [place] [address] [place] [address] PODIATRY/SURGERY 05/05/22 documented as of this encounter
--- OUTSIDE RECORDS SUMMARY | 2024-03-02 22:21 | XMS_ITS | Encounter Summary ---
Author Organization [facility] Address [address] [place] [address]. [place] [address] [place] [address] Care Team Providers Care Military Equipment Specialist Name Role Phone Colton SILVEIRA MD, Abiodun Rushing Primary Care Provider Victoriano Langston MD Unavailable [phone] Reason for Visit * Reason Onset Date Comments Consult 02/19/2024 Encounter Details Date Type Department Care Team (Late st Contact Info) Description 02/19/2024 Telephone [facility] [phone] Jacy Qureshi, RMA Consult Social History Tobacco Use Types Packs/Day Years [...] from your doctor or pharmacy? Often 11/29/2023 [facility] Utilities Answer Date Recorded In the [...] 11/29/2023 How often do you attend chur [employer] or temple services? Never 11/29/2023 Active Member of Clubs [...] Recorded Patient Health Questionnaire-2 Score 1 03/05/2023 [facility] [place] of Occupat ional Health - Occupational Stress [...] any time in the past 12 m [facility], were you homeless or living in a [...] Author Status Yes 11/29/2023 4:33 AM Emelia Cisneros, RN Active * Do you have serious [...] Cisneros RN Active documented in this encounter Progress Notes * NATALIE Ngo - 02/19/2024 9:25 AM CST Adela full, unable to leave message to schedule consult per Dr Segura. Will send letter for patientto contact our office to schedule. L SETUP OPERATOR documented in this encounter Plan of Treatment Upcoming Encounters Date Type Department Care Team (Late st Contact Info) Description 03/14/2024 11:45 AM DRILL SETUP OPERATOR Office Visit [facility]-[address] [address] Marvin Mckeon MD [facility] [address] [place], [place] [phone] 03/20/2024 11:30 AM DRILL SETUP OPERATOR Office Visit [facility] Family Medicine - [place] [address] Abiodun Segura II, MD [address] [place] [address] documented as of this encounter Goals Goal Patient Goal Type Associated Problems Recent Progress Patient-Stated? Author Family - family caregiver with be involved in care transitions and discharge planning Lifestyle No Natty Cheek, RN documented as of this encounter Visit Diagnoses Not on filedocumented in this encounter Additional Health Concerns Assessment Noted Time PHQ-9 Depression Total Score: 0 03/08/19 22 9:30 AM DRILL SETUP OPERATOR documented as of this encounter Care Teams Military Equipment Specialist Relationship Specialty Start Date End Date Abiodun Segura II, MD [address] [place] [address] PCP - General FAMILY PRACTICE 03/09/21 [place] [address] [place] [address] PODIATRY/SURGERY 05/05/22 documented as of this encounter
--- OUTSIDE RECORDS SUMMARY | 2024-03-02 22:21 | XMS_ITS | Encounter Summary ---
Author Organization [facility] Address [address] [place] [address]. [place] [address] [place] [address] Care Team Providers Care Cartographic Designer Name Role Phone Colton SILVEIRA MD, Abiodun Rushing Primary Care Provider Victoriano Langston MD Unavailable [phone] Encounter Details Date Type Department Care Team (Late st Contact Info) Description 01/01/2024 Orders Only [facility] Medical [facility] Family Medicine - [place] [address] [place] [address] Abiodun Segura II, MD 100 [place] [address] Social History Tobacco Use Types Packs/Day Years [...] from your doctor or pharmacy? Often 11/29/2023 [facility] Utilities Answer Date Recorded In the [...] 11/29/2023 How often do you attend chur [employer] or jehovah's witness services? Never 11/29/2023 Active Member of Clubs [...] Recorded Patient Health Questionnaire-2 Score 1 03/05/2023 [facility]at ional Health - Occupational [...] place to sleep or slept in a mcfp (including now)? No 03/06/2023 Housing Stability Vital Sign Answer Raymon e Recorded In the last 12 months, was t here a time when you were not able to pay the mortgage or rent on time? No 11/29/2023 In the past 12 months, how m any times have you moved where you were living? 1 11/29/2023 At any time in the past 12 m [facility], were you homeless or living in a mcfp (including now)? No 11/29/2023 Comments No Sex [...] st Contact Info) Description 03/14/2024 11:45 AM BELT SANDER STONE Office Visit [facility] [phone] Marvin Mckeon MD [facility] [address] [place] [address] 03/20/2024 11:30 AM BELT SANDER STONE Office Visit [facility] Medical [facility] Family Medicine - [place] [address] [place] [phone] Abiodun Segura II, MD [address] [place] [address] documented as of this encounter Goals Goal Patient Goal Type Associated Problems Recent Progress Patient-Stated? Author Family - family caregiver with be involved in care transitions and discharge planning Lifestyle No Natty Cheek, RN documented as of this encounter Visit Diagnoses Diagnosis Other chronic osteomyelitis of foot, unspecified laterality ([facility])- Primary documented in this encounter Additional Health Concerns Assessment Noted Time PHQ-9 Depression Total Score: 0 03/08/19 22 9:30 AM BELT SANDER STONE documented as of this encounter Care Teams Cartographic Designer Relationship Specialty Start Date End Date Abiodun Segura II, MD [address] [place] [address] PCP - General FAMILY PRACTICE 03/09/21 [place] [address] [place] [address] PODIATRY/SURGERY 05/05/22 documented as of this encounter
--- OUTSIDE RECORDS SUMMARY | 2024-03-02 22:21 | XMS_ITS | Encounter Summary ---
Author Organization [facility] Address [address] [place] [address]. [place] [address] [place] [address] Care Team Providers Care Receiving Room Clerk Name Role Phone Colton SILVEIRA MD, Abiodun Rushing Primary Care Provider Victoriano Langston MD Unavailable [phone] Reason for Visit * Reason Onset Date Comments Consult 02/11/2024 Encounter Details Date Type Department Care Team (Late st Contact Info) Description 02/11/2024 Telephone [place] [phone] Jacy Qureshi, RMA Consult Social History Tobacco [...] from your doctor or pharmacy? Often 11/29/2023 [facility] Utilities Answer Date Recorded In [...] 11/29/2023 How often do you attend chur [employer] or zoroastrian services? Never 11/29/2023 Active Member [...] Recorded Patient Health Questionnaire-2 Score 1 03/05/2023 [facility] Occupat ional Health - Occupational Stress [...] any time in the past 12 m [facility], were you homeless or living in [...] encounter Progress Notes * NATALIE Ngo - 02/11/2024 2:38 PM CST Left message to schedule cardiology consult per Dr Segura LINE HANGER documented in this encounter Plan of Treatment Upcoming Encounters Date Type Department Care Team (Late st Contact Info) Description 03/14/2024 11:45 AM BLUE LINE HANGER Office Visit [facility] [phone] Marvin Mckeon MD [facility] [address] [place] [address] 03/20/2024 11:30 AM BLUE LINE HANGER Office Visit [facility] Family Medicine - [place] [phone] Abiodun Segura II, MD [address] [place] [address] documented as of this encounter Goals Goal Patient Goal Type Associated Problems Recent Progress Patient-Stated? Author Family - family caregiver with be involved in care transitions and discharge planning Lifestyle No Natty Cheek, RN documented as of this encounter Visit Diagnoses Not on filedocumented in this encounter Additional Health Concerns Assessment Noted Time PHQ-9 Depression Total Score: 0 03/08/19 22 9:30 AM BLUE LINE HANGER documented as of this encounter Care Teams Receiving Room Clerk Relationship Specialty Start Date End Date Abiodun Segura II, MD [address] [place] [address] PCP - General FAMILY PRACTICE 03/09/21 [place] [address] [place] [address] PODIATRY/SURGERY 05/05/22 documented as of this encounter
--- OUTSIDE RECORDS SUMMARY | 2024-03-02 22:21 | XMS_ITS | Encounter Summary ---
Author Organization [facility] Address [address] [place] [address]. [place] [address] [place] [address] Care Team Providers Care Divinity Professor Name Role Phone Colton SILVEIRA MD, Abiodun Rushing Primary Care Provider Victoriano Langston MD Unavailable [phone] Reason for Visit * Reason Onset Date Comments TCM 12/03/2023 Encounter Details Date Type Department Care Team (Late st Contact Info) Description 12/03/2023 Telephone [facility] Medical [facility] Family Medicine - [place] [address] [place] [address] Abiodun Segura II, MD [address] [place] [address] TCM Social History Tobacco Use Types Packs/Day Years [...] from your doctor or pharmacy? Often 11/29/2023 [facility] Utilities Answer Date Recorded In the [...] week 11/29/2023 How often do you attend [facility] [email or web address] or shinto services? Never 11/29/2023 Active Member of Clubs [...] Patient Health Questionnaire-2 Score 1 03/05/2023 [facility] of Occupat ional Health - [...] any time in the past 12 m [facility], were you homeless or living in a [...] AM CDT Emelia Jain RN Active * Because of a physical, [...] documented in this encounter Progress Notes * Opal Quintana MA - 12/03/2023 9:06 AM CDT Follow up call to patient post hospitalization Date of hospital discharge: 12/02/23 Patient discharged from:[facility] Discharge diagnosis/diagnoses: UTI (urinary tract infection Procedures performed while inpatient: no Begin the medication reconciliation process (completed at first face to face visit) Any follow up services needed: no Education on self management: yes Assess adherence with treatment (medication) regimen and provide support. Does patient have access to care and services (rides, etc)? yes Appointment scheduled for follow up in the office (7 days if high complexity or within 14 days for medium complexity) Appointment Date:12/13/23 Time:10:30 documented in this encounter Plan of Treatment Upcoming Encounters Date Type Department Care Team (Late st Contact Info) Description 03/14/2024 11:45 AM SENIOR NET ARCHITECT Office Visit [facility] [phone] Marvin Mckeon MD [address] [facility] [address] [place], [place] [phone] 03/20/2024 11:30 AM SENIOR NET ARCHITECT Office Visit [facility] Medical Group Family Medicine - [place] [address] [place] [phone] Abiodun Segura II, MD [address] [place], [place] [phone] documented as of this encounter Goals Goal Patient Goal Type Associated Problems Recent Progress Patient-Stated? Author Family - family caregiver with be involved in care transitions and discharge planning Lifestyle No Natty Cheek, RN documented as of this encounter Visit Diagnoses Not on filedocumented in this encounter Additional Health Concerns Assessment Noted Time PHQ-9 Depression Total Score: 0 03/08/19 22 9:30 AM SENIOR NET ARCHITECT documented as of this encounter Care Teams Divinity Professor Relationship Specialty Start Date End Date Abiodun Segura II, MD [address] [place], [place] [phone] PCP - General FAMILY PRACTICE 03/09/21 [place] [address] [place] [address] PODIATRY/SURGERY 05/05/22 documented as of this encounter
--- OUTSIDE RECORDS SUMMARY | 2024-03-02 22:21 | XMS_ITS | Encounter Summary ---
Author Organization [facility] Address [address] [place] [address]. [place] [address] [place] [address] Care Team Providers Care Mortgage Loan Reviewer Name Role Phone Colton SILVEIRA MD, Abiodun Rushing Primary Care Provider Victoriano Langston MD Unavailable [phone] Reason for Visit * Reason Onset Date Comments Medication 01/28/2024 Lisinopril and S imvastatin medication adherence. Encounter Details Date Type Department Care Team (Latest Contact Info) Description 01/28/2024 Patient Outreach [facility] Family Medicine - [place] [phone] Tristan Morse, [facility] Medication (Lisinopril and Simvastatin medication adherence. ) Social History Tobacco Use Types Packs/Day Years [...] from your doctor or pharmacy? Often 11/29/2023 [facility] Utilities Answer Date Recorded In the past 12 months has th e electric, gas, oil, or water company [...] 11/29/2023 How often do you attend chur [employer] or bahai services? Never 11/29/2023 Active Member of Clubs [...] place to sleep or slept in a [place] (including now)? No 03/06/2023 Housing Stability Vital Sign Answer Raymon e Recorded In the last 12 months, was t here a time when you were not able to pay the mortgage or rent on time? No 11/29/2023 In the past 12 months, how m any times have you moved where you were living? 1 11/29/2023 At any time in the past 12 m [facility], were you homeless or living in a [place] (including now)? No 11/29/2023 Comments No Sex [...] documented in this encounter Progress Notes * Tristan Morse CPhT - 01/28/2024 8:46 AM CST Called at 0848 on 01/27. I left a message requesting a call back regarding the medication adherence of Lisinopril and Simvastatin. Called at 0727 on 01/28 and requested a call back. Third attempt made at 1159 on 01/28. I left a message requesting a call back. No further contact at this time. GAGE LOAN OFFICER ORIGINATOR documented in this encounter Plan of Treatment Upcoming Encounters Date Type Department Care Team (Late st Contact Info) Description 03/14/2024 11:45 AM MORTGAGE LOAN OFFICER ORIGINATOR Office Visit [facility] [phone] Marvin Mckeon MD [facility] [address] [place] [address] 03/20/2024 11:30 AM MORTGAGE LOAN OFFICER ORIGINATOR Office Visit [facility] Family Medicine - [place] [address] [place] [phone] Abiodun Segura II, MD 100 [place] [address] documented as of this encounter Goals Goal Patient Goal Type Associated Problems Recent Progress Patient-Stated? Author Family - family caregiver with be involved in care transitions and discharge planning Lifestyle No Natty Cheek, RN documented as of this encounter Visit Diagnoses Not on filedocumented in this encounter Additional Health Concerns Assessment Noted Time PHQ-9 Depression Total Score: 0 03/08/19 9:30 AM MORTGAGE LOAN OFFICER ORIGINATOR documented as of this encounter Care Teams Mortgage Loan Reviewer Relationship Specialty Start Date End Date Abiodun Segura II, MD 100 [place] [address] PCP - General FAMILY PRACTICE 03/09/21 [place] [address] [place] [address] PODIATRY/SURGERY 05/05/22 documented as of this encounter
--- OUTSIDE RECORDS SUMMARY | 2024-03-02 22:21 | XMS_ITS | Encounter Summary ---
Author Organization [facility] Address [address] [place] [address]. [place] [address] [place] [address] Care Team Providers Care Owner Professional Engineer Name Role Phone Colton SILVEIRA MD, Abiodun Rushing Primary Care Provider Victoriano Langston MD Unavailable [phone] Encounter Details Date Type Department Care Team (Latest Contact Info) Description 11/29/2023 Travel Social History Tobacco Use Types Packs/Day [...] from your doctor or pharmacy? Often 11/29/2023 [facility] Utilities Answer Date Recorded In the past 12 months has e [employer], [employer], or water [employer] threatened to shut off services in [...] often do you attend chur ch or mu-ism services? Never 11/29/2023 Active Member of Clubs [...] Recorded Patient Health Questionnaire-2 Score 1 03/05/2023 [facility] of Occupat ional Health - [...] any time in the past 12 m [facility], were you homeless or living in a [...] stairs? Yes 11/29/2023 4:33 AM CDT Emelia Jain RN Act mando * Question Answer Date of Assessment Author Status Do you have difficulty dressing or bathing? No 11/29/2023 4:33 AM CDT Emelia Jain, RN Active Because of a physical, mental, or emotional condition, do you have difficulty doing errands alone such as visiting a doctor's office or shopping? Yes 11/29/2023 4:33 AM Emelia Cisneros RN Acti ve * Are you deaf [...] st Contact Info) Description 03/14/2024 11:45 AM HAT SIZER Office Visit [facility] [phone] Marvin Mckeon MD [facility] [address] [facility] [place] [address] 03/20/2024 11:30 AM HAT SIZER Office Visit [facility] Family Medicine - [place] [address] [place] [phone] Abiodun Segura II, MD [address] [place] [address] documented as of this encounter Goals Goal Patient Goal Type Associated Problems Recent Progress Patient-Stated? Author Family - family caregiver with be involved in care transitions and discharge planning Lifestyle No Natty Cheek, RN documented as of this encounter Visit Diagnoses Not on filedocumented in this encounter Additional Health Concerns Assessment Noted Time PHQ-9 Depression Total Score: 0 03/08/19 9:30 AM HAT SIZER documented as of this encounter Care Teams Owner Professional Engineer Relationship Specialty Start Date End Date Abiodun Segura II, MD [address] [place] [address] PCP - General FAMILY PRACTICE 03/09/21 [place] [address] [place] [address] PODIATRY/SURGERY 05/05/22 documented as of this encounter
--- OUTSIDE RECORDS SUMMARY | 2024-03-02 22:21 | XMS_ITS | Encounter Summary ---
Author Organization [facility] Address [address] [place] [address]. [place], [place] [id number] [place] [id number] Care Team Providers Care Inside Barrel Lathe Operator Name Role Phone Colton SILVEIRA MD, Yasmin Rushing Primary Care Provider Victoriano Langston MD Unavailable [phone] Reason for Referral * Consultation (Urgent) - New Request Specialty Diagnoses / Procedures Referred By Contact Referred To Contact CARDIOLOGY / Cardiology Diagnoses Orthostasis Procedures OFFICE/OUTPATIENT NEW LOW MDM 30-44 MINUTES OFFICE/OUTPT VISIT,NEW,LEVL IV OFFICE/OUTPT VISIT,NEW,LEVL V OFFICE/OUTPT VISIT,EST,LEVL III OFFICE/OUTPT VISIT,EST,LEVL IV OFFICE/OUTPT VISIT,EST,LEVL V Yamsin Valenzuela II, MD [address] [place] [address] Phone: tel: fax: Marvin Mckeon MD [address] [place] [address] Phone: tel: fax: Referral ID Status Reason Start Date Expiration Date Visits Requested Visits Authorized [id number] New Request Specialty Services 4 03/10/2025 1 1 Scheduling Instructions 53 yo female with multiple cardiac risk factors. Now with severe orthostatic blood pressures and difficult to control hyper tension. Please evaluate and treat. Thanks. NDSMAN Reason for Visit * Reason Comments TCM Patient presents for hospital follow up/sepsis and cholecystitis Encounter Details Date Type Department Care Team (Late st Contact Info) Description 02/07/2024 10:30 AM GROUNDSMAN Office Visit [facility] Family [facility] [place] [address] [place] [phone] Yasmin Valenzuela II, MD [address] [place], [place] [phone] TCM (Patient presents for hospital follow up/sepsis and cholecystitis ) Social History Tobacco Use Types Packs/Day [...] from your doctor or pharmacy? Often 11/29/2023 [facility] Utilities Answer Date Recorded In the past [address] [facility] [employer] & other things you bake, gas, oil, or water [employer] threatened to shut off services in your [...] often do you attend chur ch or yarsanism services? Never 11/29/2023 Active Member of Clubs [...] Recorded Patient Health Questionnaire-2 Score 1 03/05/2023 [facility] Occupat ional Health - Occupational Stress [...] place to sleep or slept in a jail (including now)? No 03/06/2023 Housing Stability Vital [...] time in the past 12 m [facility], were you homeless or living in a jail (including now)? No 11/29/2023 Comments No Sex and Gender Information Value Date Recorded Sex Assigned at Female 12/17/2021 2:07 AM CDT Legal Sex Female 2:58 PM CDT Gender Identity Female 12/17/2021 2:07 AM CDT Sexual Orientation Straight 12/17/2021 2: 07 AM CDT documented as of this encounter Last Filed Vital Signs Vital Sign Reading Time Taken Comments Blood Pressure 150/84 02/07/2024 10:55 AM GROUNDSMAN Pulse 88 02/07/2024 10:35 AM GROUNDSMAN Temperature 36.3 ??C (97.3 ??F) 02/07/2024 10:[address] Respiratory Rate - - Oxygen Saturation 100% 02/07/2024 10:35 AM GROUNDSMAN Inhaled Oxygen Concentration - - Weight 84.4 kg (186 lb) 02/07/2024 10:35 AM GROUNDSMAN Height - - Body Mass Index 30.02 01/03/2024 3:20 AM GROUNDSMAN documented in this encounter Functional Status * Are you deaf or do you have serious difficulty hearing Answer Date of Assessment Author Status No 11/29/2023 4:33 AM CDEmelia Haas RN Active * Are you blind or [...] Notes * Yasmin Valenzuela II, MD - 02/07/2024 10:30 AM CST Images from the original note were not included. [facility] FAMILY [address] [address] HOSPITAL FOLLOW UP NOTE Encounter Date: 02/07/2024 Chief Complaint: TCM (Patient presents for hospital follow up/sepsis and cholecystitis ) History of Present Illness: 53-year-old female with history of diabetes, hypertension, hyperlipidemia, Charcot foot of the leftfoot, left toe amputation, constipation, blindness right eye, history of gastric ulcers, history ofrecurrent urinary tract infections, and recent hospitalization from January 19 through January 22 for acute cholecystitis. Patient underwent cholecystectomy at [facility] and subsequently has recovered well. Patient did have orthostatic hypotension while in the hospital and her amlodipine was discontinued and her lisinopril dose was cut in half. Patient is having less lightheadedness when she stands up but still occasionally becomes lightheaded and diaphoretic especially when she gets out of bed in the morning. Here for evaluation and treatment recommendations. I reviewed the entire discharge summary and reconciled patient's medications today. Please see TCM phone call from January 23 for additional details. Review Of Systems: Positive ROS items as noted in HPI. All other Systems were reviewed and are negative. Patient Active Problem List Diagnosis Hypercholesteremia Hypertension Type 2 diabetes mellitus ([facility]) Renal disorder Chronic bilateral low back pain without sciatica Callus of foot Vision decreased Renal stones Charcot foot due to diabetes mellitus ([facility]) Hot flashes due to menopause Chest pain Diabetic foot infection ([facility]) Osteomyelitis ([facility]) Soft tissue infection of foot Necrotic toes ([facility]) Acquired absence of other left toe(s) ([facility]) Atherosclerosis of cachil dehe arteries of extremities with intermittent claudication, bilateral legs ([facility]) Intractable abdominal pain Abdominal pain Intractable vomiting Peptic ulcer Epigastric abdominal pain UTI (urinary tract infection) Class 1 obesity due to excess calories with serious comorbidity and body mass index (BMI) of 32.0 to 32.9 in adult Past Medical History: Diagnosis Date Arthritis Charcot foot due to diabetes mellitus ([facility]) LEFT FOOT Constipation COVID-19 Diabetes mellitus ([facility]) Diabetic neuropathy ([facility]) Gastric ulcer High cholesterol Hypertension Kidney stone [...] min Stress: No Stress Concern Present (11/29/2023) [facility] - Occupational Stress Questionnaire Feeling of Stress : Not at all Social Connections: Moderately Isolated (11/29/2023) Social Connection and Isolation Panel [NHANES] Frequency of Communication with Friends and Family: More than three times a week Frequency of Social Gatherings with Friends and Family: More than three times a week Attends Scientology Services: Never Active Member of Clubs or [...] Current Outpatient Medications Medication Sig Dispense Refill calcium carbonate (TUMS) 500 MG chewable tablet [...] UNITS SUBCUTANEOUSLY IN THE MORNING AND 55 UNITS IN THE EVENING 40 mL 3 HYDROcodone-acetaminophen (NORCO) 5-325 MG tablet Take 1 tablet by mouth every 4 (four) hours as needed. Insulin Syringe-Needle U-100 (INSULIN SYRINGE 1CC/30GX5/16 ) 30G X 5/16 1 ML Misc Use as directed to inject insulin twice a day. 200 each 3 ivermectin (STROMECTOL) 3 MG Tab tablet linaCLOtide (LINZESS) 145 MCG capsule Take 1 capsule (145 mcg total) by mouth every morning before breakfast. Take on empty stomach at least 30 minutes prior to the first meal of the day. Swallow whole. Do not open capsule or chew. 30 capsule 5 lisinopril (PRINIVIL) 20 MG tablet Take 1 tablet (20 mg total) by mouth every evening. Indications:hypertension (Patient taking differently: Take 0.5 tablets (10 mg total) by mouth every evening. Indications: hypertension) 90 tablet 3 omeprazole (PRILOSEC) 20 MG [...] tablet Take 1 tablet by mouth every 6 (six) hours as needed. semaglutide (OZEMPIC) 2 MG/3ML injection (PEN) Inject 0.5 mg into the skin every 7 days. Indications: Diabetes 3 mL 5 Senna (SENOKOT) 8.6 MG tablet Take 1 tablet (8.6 mg total) by mouth daily. 90 tablet 3 simvastatin (ZOCOR) 40 MG tablet Take 1 [...] 2 (two) times daily. 453.6 g 1 amLODIPine (NORVASC) 10 MG tablet Take 1 tablet (10 mg total) by mouth nightly at bedtime. (Patientnot taking: Reported on 02/07/2024) 90 tablet 3 No current facility-administered medications for this visit. Allergies Allergen Reactions Ceftriaxone Rash Fish Oil Unknown Amoxicillin Rash Penicillins Rash Objective: Filed Vitals: 02/07/24 1035 02/07/24 1055 BP: (!) 180/98 (!) 150/84 Pulse: 88 Temp: 97.3 ??F (36.3 ??C) TempSrc: Temporal SpO2: 100% Weight: 84.4 kg (186 lb) Nursing note reviewed. Physical Exam Vitals [...] There is no abdominal tenderness. Musculoskeletal: General: Normal range of motion. Cervical back: Normal range of motion and neck supple. No rigidity. Skin: General: Skin is warm and dry. Neurological: Mental Status: She is alert and oriented to person, place, and time. Psychiatric: Mood and Affect: Mood normal. Behavior: Behavior normal. Thought Content: Thought content normal. Judgment: Judgment normal. Labs: Results for orders placed or performed during [...] GFR ESTIMATE 52 (L) >90 ML/MIN/1.[address] ABD+PEL WO CON Narrative [facility] [address] [place], [place] [address] Examination: CT abdomen and pelvis without IV [...] chronic right hydronephrosis, again with findings suggestive ofchronic UPJ obstruction. Nonobstructing bilateral renal stones are again noted. Lymph nodes: No lymphadenopathy in the abdomen or pelvis. BOWEL AND PERITONEUM Bowel: Normal in caliber and wall thickness. The appendix is normal. Free air or fluid: None. VASCULATURE The abdominal aorta is normal in caliber. PELVIS No abnormality. BONES/SOFT TISSUES No significant lesion. Impression Impression: 1. 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 This appears similar to prior. 2. Redemonstrated bilateral nonobstructing renal stones. 3. Uncomplicated cholelithiasis. Ordered By: SEGUN CHAN Interpreted By: Lex Webb MD, 01/03/2024 4:33 AM Counseling The patient and patient's family was counseled regarding instructions for management, patient and family education and importance of compliance with treatment. Assessment: 1. History of cholecystectomy 2. Hypertrophic scar 3. Primary hypertension 4. Type 2 diabetes mellitus with diabetic neuropathic arthropathy, with long- term current use of insulin ([facility]) semaglutide (OZEMPIC) 2 MG/3ML injection (PEN) 5. Hypercholesteremia 6. Orthostasis Ambulatory referral to Cardiology, Adult ([facility] [place]) 7. Slow transit constipation Senna (SENOKOT) 8.6 MG tablet Plan: Orders Placed This Encounter Medications ivermectin (STROMECTOL) 3 MG Tab tablet oxyCODONE-acetaminophen (PERCOCET) 5-325 MG tablet Senna (SENOKOT) 8.6 MG tablet semaglutide (OZEMPIC) 2 MG/3ML injection (PEN) 1. History of cholecystectomy (Primary) Patient is status post cholecystectomy and recovering well. Patient will follow- up with surgery foradditional recommendations. Patient will follow-up with me at the end of February for routine healthcare maintenance. 2. Hypertrophic scar Patient has hypertrophic scar at port site of upper abdomen. We will wait till port site is fully healed and consider intralesional steroid injection to help flatten the scar. 3. Primary hypertension Patient's blood pressure is elevated. Patient will restart lisinopril 20 mg daily and we will continue to hold amlodipine for now secondary to orthostasis and we will recheck blood pressure at follow-up at the end of February. 4. Type 2 diabetes mellitus with diabetic neuropathic arthropathy, with long- term current use of insulin ([facility]) Patient's hemoglobin A1c was improving and semaglutide 1 mg weekly which had to be discontinued in the hospital. We will decrease dose to 0.5 mg weekly and we will plan to increase if patient is tolerating well when she follows up in February. - semaglutide (OZEMPIC) 2 MG/3ML injection (PEN); Inject 0.5 mg into the skin every 7 days. Indications: Diabetes Dispense: 3 mL; Refill: 5 5. Hypercholesteremia Patient's lipids have been at goal on simvastatin 40 mg daily. No adjustment at this time. 6. Orthostasis Patient does have significant orthostasis symptoms and may have autonomic dysfunction secondary to diabetes. Will consult cardiology for possible tilt table testing and recommendations for correction. Patient also has multiple cardiac risk factors and this could be a pump issue. - Ambulatory referral to Cardiology, Adult ([facility] [place]) 7. Slow transit constipation Patient continues to have intermittent constipation. We will restart senna 8.6 mg daily and patientmay titrate to 2 tablets/day if needed. We will review efficacy at follow-up. - Senna (SENOKOT) 8.6 MG tablet; Take 1 tablet (8.6 mg total) by mouth daily. Dispense: 90 tablet; Refill: 3 I personally spent a total of 45 minutes on the day of the encounter. This includes fwor-ur-clts and umm-zvce-lb-face time I provided on the day of the encounter & excludes time spent performing separately reportable services. Medications Discontinued During This Encounter Medication Reason semaglutide (OZEMPIC) 1 mg/dose injection (PEN) Dose adjustment YASMIN VALENZUELA MD 02/07/2024 Portions of this note were dictated using [employer] speech recognition software. Occasional wrong wordor sound-alike substitutions may have occurred due to the inherent limitations of voice recognition software. Please read the chart carefully and recognize, using context, where the substitutions may have occurred. NDSMAN documented in this encounter Plan of Treatment Upcoming Encounters Date Type Department Care Team (Late st Contact Info) Description 03/14/2024 11:45 AM GROUNDSMAN Office Visit [facility] [phone] Marvin Mckeon MD [address] [facility] [address] [place] [address] 03/20/2024 11:30 AM GROUNDSMAN Office Visit [facility] - [place] [address] [place] [phone] Yasmin Valenzuela II, MD [address] [place] [address] Scheduled Referrals Name Type Priority Associated Diagnoses Orde r Schedule Ambulatory referral to Cardiology, Adult ([facility] [place]) Referral Routine Orthostasis Ordered: 02/07/2024 documented as of this encounter Goals Goal Patient Goal Type Associated Problems Recent Progress Patient-Stated? Author Family - family caregiver with be involved in care transitions and discharge planning Lifestyle No Natty Cheek, RN documented as of this encounter Visit Diagnoses Diagnosis History of cholecystectomy- Primary Other acquired absence of organ Hypertrophic scar Keloid scar Primary hypertension Unspecified essential hypertension Type 2 diabetes mellitus with diabetic neuropathic arthropathy, with long-term current use of insulin ([facility]) Hypercholesteremia Pure hypercholesterolemia Orthostasis Orthostatic hypotension Slow transit constipation documented in this encounter Additional Health Concerns Assessment Noted Time PHQ-9 Depression Total Score: 0 03/08/19 22 9:30 AM GROUNDSMAN documented as of this encounter Care Teams Inside Barrel Lathe Operator Relationship Specialty Start Date End Date Yasmin Valenzuela II, MD [address] [place] [address] PCP - General FAMILY PRACTICE 03/09/21 [place] [address] [place] [address] PODIATRY/SURGERY 05/05/22 documented as of this encounter
--- OUTSIDE RECORDS SUMMARY | 2024-03-02 22:21 | XMS_ITS | Encounter Summary ---
Author Organization [facility] Address [address] [place] [address]. [place] [address] [place] [address] Care Team Providers Care Dispatch Supervisor Name Role Phone Colton SILVEIRA MD, Abiodun Rushing Primary Care Provider Victoriano Langston MD Unavailable [phone] Reason for Visit * Reason Onset Date Comments TCM 01/24/2024 Encounter Details Date Type Department Care Team (Late st Contact Info) Description 01/24/2024 Telephone [facility] Family Medicine - [place] [address] [place] [phone] Abiodun Segura II, MD [address] [place] [address] TCM Social History Tobacco Use [...] from your doctor or pharmacy? Often 11/29/2023 [facility] Utilities Answer Date Recorded In the [...] week 11/29/2023 How often do you attend [facility] [employer] or yazidi services? Never 11/29/2023 Active Member of Clubs [...] Recorded Patient Health Questionnaire-2 Score 1 03/05/2023 [facility] Occupat ional Health - Occupational [...] place to sleep or slept in a chcf (including now)? No 03/06/2023 Housing Stability Vital Sign Answer Raymon e Recorded In the last 12 months, was t here a time when you were not able to pay the mortgage or rent on time? No 11/29/2023 In the past 12 months, how m any times have you moved where you were living? 1 11/29/2023 At any time in the past 12 m [facility], were you homeless or living in a chcf (including now)? No 11/29/2023 Comments No Sex [...] Assessment Author Status Yes 11/29/2023 4:33 AM EMILEET Emelia Jain RN Active * Do you have serious difficulty walking or climbing stairs? Answer Date of Assessment Author Status Yes 11/29/2023 4:33 AM EMILEET Emelia Jain RN Active * Do you have difficulty dressing or bathing? Answer Date of Assessment Author Status No 11/29/2023 4:33 AM CDT Emelia Jain RN Active * Because of a physical, mental, or emotional condition, do you have difficulty doing errands alone such as visiting a doctor's office or shopping? Answer Date of Assessment Author Status Yes 11/29/2023 4:33 AM EMILEET Emelia Jain RN Active documented as of this encounter Mental Status * Because of a physical, mental, or emotional condition, do you have serious difficulty concentrating, remembering, or making decisions? Answer Entry Date Author Status No 11/29/2023 4:33 AM EMILEET Emelia Jain RN Active documented in this encounter Progress Notes * Sydney Cobos MA - 01/24/2024 3:59 PM CST Follow up call to patient post hospitalization Date of hospital discharge: 01/23/24 Patient discharged from: [facility] Discharge diagnosis/diagnoses: Sepsis, cholelithiasis Procedures performed while inpatient: Yes. Gallbladder removed Begin the medication reconciliation process (completed at first face to face visit) Any follow up services needed: f/u with PCP and surgeon Education on self management: Yes. Assess adherence with treatment (medication) regimen and provide support. Does patient have access to care and services (rides, etc)? Yes. Appointment scheduled for follow up in the office (7 days if high complexity or within 14 days for medium complexity) Appointment Date: 02/07/24 Time: 10:30 am IGN LANGUAGES DEPARTMENT CHAIR documented in this encounter Plan of Treatment Upcoming Encounters Date Type Department Care Team (Late st Contact Info) Description 03/14/2024 11:45 AM FOREIGN LANGUAGES DEPARTMENT CHAIR Office Visit [facility] [phone] Marvin Mckeon MD [address] [facility] [address] [place], [place] [id number] 03/20/2024 11:30 AM FOREIGN LANGUAGES DEPARTMENT CHAIR Office Visit [facility] Family Medicine - [place] [address] [place] [phone] Abiodun Segura II, MD [address] [place], [place] [phone] documented as of this encounter Goals Goal Patient Goal Type Associated Problems Recent Progress Patient-Stated? Author Family - family caregiver with be involved in care transitions and discharge planning Lifestyle No Natty Cheek, RN documented as of this encounter Visit Diagnoses Not on filedocumented in this encounter Additional Health Concerns Assessment Noted Time PHQ-9 Depression Total Score: 0 03/08/19 22 9:30 AM FOREIGN LANGUAGES DEPARTMENT CHAIR documented as of this encounter Care Teams Dispatch Supervisor Relationship Specialty Start Date End Date Abiodun Segura II, MD [address] [place] [id number] PCP - General FAMILY PRACTICE 03/09/21 [place] [address] [place] [address] PODIATRY/SURGERY 05/05/22 documented as of this encounter
--- OUTSIDE RECORDS SUMMARY | 2024-03-02 22:21 | XMS_ITS | Encounter Summary ---
Author Organization [facility] [place] Address [address] [place] [address]. [place] [address] [place] [address] Care Team Providers Care Shale Miner Name Role Phone Colton SILVEIRA MD, Abiodun Rushing Primary Care Provider Victoriano Langston MD Unavailable [phone] Reason for Visit * Reason Onset Date Comments Medication Request 12/25/2023 Encounter Details Date Type Department Care Team (Late st Contact Info) Description 12/25/2023 Telephone [facility] Family Medicine - [place] [address] [place] [address] Abiodun Segura II, MD [address] [place] [address] Medication Request Social History Tobacco Use Types Packs/Day [...] your doctor or pharmacy? Often 11/29/2023 [facility] Utilities Answer Date Recorded In the [...] 11/29/2023 How often do you attend chur [employer] or restorationist services? Never 11/29/2023 Active Member [...] Recorded Patient Health Questionnaire-2 Score 1 03/05/2023 [facility] - [...] place to sleep or slept in a penitentiary (including now)? No 03/06/2023 Housing Stability Vital Sign Answer Raymon e Recorded In the last 12 months, was t here a time when you were not able to pay the mortgage or rent on time? No 11/29/2023 In the past 12 months, how m any times have you moved where you were living? 1 11/29/2023 At any time in the past 12 m [facility], were you homeless or living in a penitentiary (including now)? No 11/29/2023 Comments No Sex [...] No 11/29/2023 4:33 AM CDT Emelia Jain, DEANDRE Active documented in this encounter Progress Notes * Sydney Cobos MA - 12/25/2023 10:29 AM CST Patient informed and v/u She will stop simvastatin while taking diflucan [facility] * Sydney Cobos MA - 12/25/2023 9:19 AM CST Will you prescribe medication for yeast infection? [facility] * Cate Smith - 12/25/2023 8:52 AM CST Pt was in the office on 12/12. She was taking an antibiotic at the time and now she has a yeast infection. She wants to know if something can be called out for her for this [facility] - [place], [place] - [address] [[id number]] [facility] documented in this encounter Plan of Treatment Upcoming Encounters Date Type Department Care Team (Late st Contact Info) Description 03/14/2024 11:45 AM [facility] Office Visit [facility]-[address] [id number] Marvin Mckeon MD [address] [place] [address] 03/20/2024 11:30 AM [facility] Office Visit [facility] Family Medicine - [place] [address] [place] [id number] Abiodun Segura II, MD [address] [place] [address] documented as of this encounter Goals Goal Patient Goal Type Associated Problems Recent Progress Patient-Stated? Author Family - family caregiver with be involved in care transitions and discharge planning Lifestyle No Natty Cheek, RN documented as of this encounter Visit Diagnoses Not on filedocumented in this encounter Additional Health Concerns Assessment Noted Time PHQ-9 Depression Total Score: 0 03/08/19 22 9:30 AM [facility] documented as of this encounter Care Teams Shale Miner Relationship Specialty Start Date End Date Abiodun Segura II, MD [address] [place] [address] PCP - General FAMILY PRACTICE 03/09/21 [place] [address] [place] [address] PODIATRY/SURGERY 05/05/22 documented as of this encounter
--- OUTSIDE RECORDS SUMMARY | 2024-03-02 22:21 | XMS_ITS | Clinical Summary ---
Author Organization [facility] Address [address] [place] [address]. [place] [address] [place] [address] Care Team Providers Care Nuclear Operator Name Role Phone Colton SILVEIRA MD, Yasmin Rushing Primary Care Provider Victoriano Langston MD Unavailable Allergies Active Allergy Reactions Criticality Noted Date Comments Amoxicillin Rash Low 03/11/2012 Ceftriaxone Rash Medium 03/19/2023 Fish Oil Unknown 07/11/2021 Penicillins Rash Low 03/11/2012 Medications oxybutynin (DITROPAN) 5 MG tablet Take 1 tablet (5 mg total) by mouth 3 (three) times daily as needed (pain). 10/21/19 23 Active calcium carbonate (TUMS) 500 MG chewable tablet Chew 1 tablet (500 mg total) by mouth 2 (two) times daily as needed. 60 tablet 11/12/19 23 Active ondansetron (ZOFRAN-ODT) 4 MG disintegrating tablet Take 1 tablet (4 mg total) by mouth every 6 (six) hours as needed for Nausea. 20 tablet 11/12/19 23 Active omeprazole (PRILOSEC) 20 MG capsule Take 1 capsule (20 mg total) by mouth daily as needed. 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 200 each 3 03/09/19 Active triamcinolone (KENALOG) 0.1 % creamIndications: Allergic drug rash Apply topically 2 (two) times daily. 453.6 g 1 03/19/19 Active amLODIPine (NORVASC) 10 MG tabletIndications :Hypertension, unspecified type Take 1 tablet (10 mg total) by mouth nightly at bedtime. 90 tablet 3 06/15/19 24 Active Additional Information Patient not taking.Reported on 02/07/2024 lisinopril (PRINIVIL) 20 MG tabletIndications :hypertension Take 1 tablet (20 mg total) by mouth every evening. Indications: hypertension 90 tablet 06/15/19 24 025 Active Additional Information Patient taking differently: 10 mgOral Every evening, Indications: hypertension, Reported on 02/07/2024 simvastatin (ZOCOR) 40 MG tabletIndications :Hypercholesterem ia Take 1 tablet (40 mg total) by mouth nightly at bedtime. 90 tablet 06/15/19 24 Active cyclobenzaprine (FLEXERIL) 10 MG tabletIndications :Muscle spasm Take 1 tablet (10 mg total) by mouth 3 (three) times daily as needed for Muscle Spasms. 60 tablet 06/15/19 24 Active linaCLOtide (LINZESS) 145 MCG capsuleIndication s:Chronic idiopathic constipation Take 1 capsule (145 mcg total) by mouth every morning before breakfast. Take on empty stomach at least 30 minutes prior to the first meal of the day. Swallow whole. Do not open capsule or chew. 30 capsule 06/15/19 24 Active HYDROcodone-aceta minophen (NORCO) 5-325 MG tablet Take 1 tablet by mouth every 4 (four) hours as needed. 07/27/19 24 Active traMADol (ULTRAM) 50 MG tablet Take 1 tablet (50 mg total) by mouth every 6 (six) hours as needed. 04/25/19 24 Active doxycycline hyclate (VIBRAMYCIN) 50 MG capsule Take 1 capsule (50 mg total) by mouth daily. 10/26/19 24 Active Tretinoin, Facial Wrinkles, (TRETINOIN, EMOLLIENT,) 0.05 % Cream Apply 1 Application topically nightly at bedtime. Active tretinoin (RETIN-A) 0.05 % cream Apply topically nightly at bedtime. 11/23/19 24 Active HUMALOG MIX 75/25 (75-25) 100 UNIT/ML SuspensionIndicat ions:Type 2 diabetes mellitus with retinopathy, with long-term current use of insulin, macular edema presence unspecified, unspecified laterality, unspecified retinopathy severity ([facility]) INJECT 65 UNITS SUBCUTANEOUSLY IN THE MORNING AND 55 UNITS IN THE EVENING 40 mL 3 01/22/20 24 Active ivermectin (STROMECTOL) 3 MG Tab tablet 12/28/19 24 Active oxyCODONE-acetami nophen (PERCOCET) 5-325 MG tablet Take 1 tablet by mouth every 6 (six) hours as needed. 01/23/20 24 Active Senna (SENOKOT) 8.6 MG tabletIndications :Slow transit constipation Take 1 tablet (8.6 mg total) by mouth daily. 90 tablet 3 02/07/20 24 Active semaglutide (OZEMPIC) 2 MG/3ML injection (PEN)Indications: Diabetes Mellitus Inject 0.5 mg into the skin every 7 days. Indications: Diabetes 3 mL 5 02/07/20 24 Active Glucose Blood (ACCU-CHEK TAWANNA PLUS) test stripIndications: Type 2 diabetes mellitus with diabetic neuropathic arthropathy, with long-term current use of insulin ([facility]) 1 strip by Other route 2 (two) times daily. Use as instructed 200 strip 3 02/26/19 25 Active Glucose Blood (ACCU-CHEK TAWANNA PLUS) test stripIndications: Type 2 diabetes mellitus with diabetic neuropathic arthropathy, with long-term current use of insulin ([facility]) 1 strip by Other route 2 (two) times daily. Use as instructed 200 strip 3 12/06/19 23 025 Disconti nued(Reo rder) semaglutide (OZEMPIC) 1 mg/dose injection (PEN)Indications: Diabetes Mellitus Inject 1 mg into the skin once a week. Indications: Diabetes 3 mL 5 12/13/19 24 024 Disconti nued(Dos e adjustme nt) Active Problems Problem Noted Date Diagnosed Date Class 1 obesity due to exces s calories with serious comorbidity and body mass index (BMI) of 32.0 to 32.9 in adult 08/16/2023 UTI (urinary tract infection) 03/05/2023 Peptic ulcer 12/13/2022 Overview (12/13/2022): Added automatically from request for surgery [id number] Epigastric abdominal pain 12/13/2022 Overview (12/13/2022): Added automatically from request for surgery [id number] Intractable vomiting 11/10/2022 Abdominal pain 10/13/2022 Intractable abdominal pain 10/11/2022 Acquired absence of other left toe(s) ([facility]/HCC) 09/20/2022 Atherosclerosis of viejas ar teries of extremities with intermittent claudication, bilateral legs 09/20/2022 Necrotic toes ([facility]) 09/04/2022 Soft tissue infection of foot 09/03/2022 Osteomyelitis ([facility]) 01/09/2022 Diabetic foot infection ([facility]) 2021 Chest pain 07/09/2021 Hot flashes due to menopause 07/06/2021 Renal stones 04/15/2021 Chronic bilateral low back pain without sciatica 12/14/2020 Callus of foot 12/14/2020 Renal disorder 09/24/2020 Hypercholesteremia 07/11/2018 Hypertension 07/11/2018 Type 2 diabetes mellitus ([facility]) 07/11 Vision decreased Overview (03/21/2021): blind right eye, poor vision left eye Charcot foot due to diabetes mellitus ([facility] H HS/HCC) Overview (07/06/2021): LEFT FOOT Resolved Problems Problem Noted Date Diagnosed Date Resolved Date Chest pain 08/12/2019 04/15/2021 Overview (03/21/2021): Added automatically from request for surgery [id number] Nephrolithiasis 07/11/2018 04/15/2021 Diabetic foot ulcer ([facility]/HCC) 06/28/2017 03/21/2021 Cellulitis 02/08/2017 12/14/2020 Osteomyelitis ([facility]) 02/04/2017 03/21/2021 Encounters Date Type Department Care Team Description 02/27/[address] [phone] Yasmin Segura II, MD Refill Request 02/19/2024 Telephone [facility], [address] [address] Jacy Qureshi, RMA Consult 02/11/2024 Telephone [facility], [address] [address] Jacy Qureshi, RMA Consult 02/07/2024 10:30 AM RELAY SHOP SUPERVISOR Office Visit [address] [phone] Yasmin Segura II, MD TCM (Patient presents for hospital follow up/sepsis and cholecystitis ) 02/07/2024 Travel 02/01/2024 Scan [facility] [email or web address] SRVCS Scanned, [facility] Dilated Eye Exam (SCAN) 01/28/2024 Patient Outreach [address] [phone] Tristan Morse, [facility] Medication (Lisinopril and Simvastatin medication adherence. ) 01/24/[address] [phone] Yasmin Segura II, MD TCM 01/20/2024 Scan [facility] INFO SRVCS Scanned, [facility] 01/03/2024 3:16 AM RELAY SHOP SUPERVISOR - 01/03/2024 6:23 AM RELAY SHOP SUPERVISOR Emergency [facility] [place] [address] Enrrique Jara MD Abdominal Pain; Constipation Discharge Disposition: Home or Self Care (Routine Discharge) 01/03/2024 Travel 01/01/2024 Orders Only [address] [phone] Yasmin Segura II, MD 12/27/2023 Scan [facility] INFO SRVCS Scanned, [facility] 12/25/2023 Orders Only [address] [phone] Yasmin Segura II, MD 12/25/[address] [phone] Yasmin Segura II, MD Medication Request 12/19/2023 11:34 AM CDT - 12/19/2023 11:59 PM CDT Hospital Encounter [facility] [place] [address] Hubert Cummings DPM Discharge Disposition: Home or Self Care (Routine Discharge) 12/19/2023 Travel 12/13/2023 10:30 AM CDT Office Visit [address] [phone] Yasmin Segura II, MD TCM (Patient presents for hospital follow up for UTI) 12/13/2023 Travel 12/03/[address] [phone] Yasmin Segura II, MD TCM 11/28/2023 10:33 PM CDT - 12/02/2023 10:41 AM CDT Hospital Encounter [facility] Med/Surg [address] [place] [address] Perrin, CYNTHIA Mejia Ashley Helen, MD Conti, John R, PA-C Redzic, Adela, PA-C Urinary Symptoms; Back Pain Discharge Disposition: Home or Self Care (Routine Discharge) from Last 3 Months Immunizations Name Administration Dates Next Due Influenza Adult (Generic) 04/03/2022(Deferred: P atient Refused) Tdap (Boostrix) 12/18/2021(Deferred: Patient/fam felipe declined) Family History Medical History Relation Comments Heart Attack Father Hypertension Father Diabetes Mother Hypertension Mother Breast Cancer Other Hypertension Sister Stroke Sister Relation Status Comments Daughter Alive Father Alive Mother Alive Other Alive Sister Social History Tobacco Use Types [...] from your doctor or pharmacy? Often 11/29/2023 Crystalsolities Answer Date Recorded In the past 12 months has e [facility], gas, oil, or water [employer] threatened to shut off services in your [...] often do you attend chur ch or mormonism services? Never 11/29/2023 Active Member of Clubs [...] Patient Health Questionnaire-2 Score 1 03/05/2023 [facility] - [...] any time in the past 12 m [facility], were you homeless or living in a retirement (including now)? No 11/29/2023 Comments No Sex and Gender Information Value Date Recorded Sex Assigned at Female 12/17/2021 2:07 AM CDT Legal Sex Female 2:58 PM CDT Gender Identity Female 12/17/2021 2:07 AM CDT Sexual Orientation Straight 12/17/2021 2: 07 AM CDT Last Filed Vital Signs Vital Sign Reading Time Taken Comments Blood Pressure 150/84 02/07/2024 10:55 AM RELAY SHOP SUPERVISOR Pulse 88 02/07/2024 10:35 AM RELAY SHOP SUPERVISOR Temperature 36.3 ??C (97.3 ??F) 02/07/2024 10:[address] Respiratory Rate 18 01/03/2024 3:20 AM RELAY SHOP SUPERVISOR Oxygen Saturation 100% 02/07/2024 10:35 AM RELAY SHOP SUPERVISOR Inhaled Oxygen Concentration - - Weight 84.4 kg (186 lb) 02/07/2024 10:35 AM RELAY SHOP SUPERVISOR Height 167.6 cm (5' 6 ) 01/03/2024 3:20 AM RELAY SHOP SUPERVISOR Body Mass Index 30.02 01/03/2024 3:20 AM RELAY SHOP SUPERVISOR Plan of Treatment Upcoming Encounters Date Type Department Care Team (Late st Contact Info) Description 03/14/2024 11:45 AM RELAY SHOP SUPERVISOR Office Visit [facility] [phone] Marvin Mckeon MD [facility] [address] [place], [place] [phone] 03/20/2024 11:30 AM RELAY SHOP SUPERVISOR Office Visit [facility] [place] [address] [place] [phone] Yasmin Segura II, MD [address] [place] [address] Health Maintenance Due Date Last Done Comments Kidney Health Evaluation 1971 Pneumococcal Vaccine: Pediatrics (0 to 5 Years) and At-Risk Patients (6 to 64 Years) (1 of 2 - PCV) 1977 Hepatitis C 1989 DTaP, Tdap and Td Vaccines (1 - Tdap) 1990 Hepatitis B Vaccines (1 of 3 - 19+ 3-dose series) 1990 Zoster Vaccines (1 of 2) 2021 Annual Physical 05/06/2023 05/05/2022 Mammogram Screening 07/03/2023 07/02/2021, 06/22/2020, 03/15/2020, Additional history exists COVID-19 Vaccine ( - season) 2023 Influenza Adult (#1) 2023 Hemoglobin A1C 06/12/2024 12/13/2023, 07/21, 02/03/2023, Additional history exists Lipid Panel 08/15/2024 08/16/2023, 01/19, 06/26/2022, Additional history exists Diabetes: Retinopathy Eye Exam 01/31/2025 02/01/2024, 08/24/2021 Colorectal Cancer Screening Colonoscopy (10 Years) 11/18/2030 11/18/2020 Meningococcal Vaccine Aged Out No lauren greg eligible based on patient's age to complete this topic RSV Immunizations Under 20 Months Aged Out No longer eligible based on patient's age to complete this topic Goals Goal Patient Goal Type Associated Problems Recent Progress Patient-Stated? Author Family - family caregiver with be involved in care transitions and discharge planning Lifestyle No Natty Cheek, open hearth helper Procedure Name Priority Date/Time Associated Diagnosis Comments DIABETIC RETINOPATHY EXAM (POSITIVE)(SCAN ORDER) Routine 02/01/2024 CT ABD+PEL WO CON STAT 01/03/2024 4:3 2 AM RELAY SHOP SUPERVISOR COMPREHENSIVE METABOLIC PANEL STAT 01/03/2024 3:51 AM RELAY SHOP SUPERVISOR CBC W/DIFF AUTOMATED STAT 01/03/2024 3:51 AM RELAY SHOP SUPERVISOR USV ART REST W ADRIANA LOW EXT Routine 12/19/2023 1:28 PM CDT Osteoarthritis of feet, bilateral Type 2 diabetes mellitus with other circulatory complications ([facility]/HCC) COLLECT.CAPILLARY (FNGR,HEEL,EAR) Routine 12/13/2023 4:06 PM CDT Type 2 diabetes mellitus with diabetic neuropathic arthropathy, with long-term current use of insulin ([facility]/HCC) HEMOGLOBIN, GLYCOSYLATED Routine 12/13/2023 Type 2 diabetes mellitus with diabetic neuropathic arthropathy, with long-term current use of insulin ([facility]/HCC) CBC W/DIFF AUTOMATED Routine 12/02/2023 5:28 AM CDT BASIC METABOLIC PANEL Routine 12/02/2023 5:28 AM CDT POCT GLUCOSE - CORREA DOCKED DEVICE Routine 12/01/2023 8:08 PM CDT POCT GLUCOSE - CORREA DOCKED DEVICE Routine 12/01/2023 5:22 PM CDT POCT GLUCOSE - CORREA DOCKED DEVICE Routine 12/01/2023 11:28 AM CDT POCT GLUCOSE - CORREA DOCKED DEVICE Routine 12/01/2023 8:16 AM CDT VANCOMYCIN Routine 12/01/2023 5:43 AM CDT CBC W/DIFF AUTOMATED Routine 12/01/2023 5:43 AM CDT BASIC METABOLIC PANEL Routine 12/01/2023 5:43 AM CDT LIPID PANEL Routine 08/16/2023 10:47 AM CDT Hypercholesteremia MG SCREENING W FELTON NOHEMY DIGI Routine 07/02/2021 1:12 PM CDT Encounter for screening mammogram for malignant neoplasm of breast COLONOSCOPY GENERIC (SCAN ORDER) 11/18/2020 from Last 3 Months or Most Recently Relevant to Health Maintenance Results * DIABETIC RETINOPATHY EXAM (POSITIVE) (02/01/2024) us [facility] Scanned SCANNING Final Resu lt [facility] * CT ABD+PEL WO CON (01/03/2024 4:32 AM RELAY SHOP SUPERVISOR) Anatomical Region Laterality Modality Abdomen Computed Tomogra phy 01/03/2024 4:33 AM RELAY SHOP SUPERVISOR Impressions 01/03/2024 4:43 AM RELAY SHOP SUPERVISOR Impression: 1. 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 This appears similar to prior. 2. Redemonstrated bilateral nonobstructing renal stones. 3. Uncomplicated cholelithiasis. Ordered By: ENRRIQUE JARA Interpreted By: Lex Webb MD, 01/03/2024 4:33 AM Narrative 01/03/2024 4:43 AM RELAY SHOP SUPERVISOR [facility] [address] [place], [place] [address] Examination: CT abdomen and pelvis without IV [...] Procedure Note Lex Webb MD - 01/03/[address] [address] Examination: CT abdomen and pelvis without IV [...] (ABNORMAL) COMPREHENSIVE METABOLIC PANEL (01/03/2024 3:51 AM RELAY SHOP SUPERVISOR) GLUCOSE 223(H) 70 - 99 MG/DL 01/03/2024 4:25 AM RELAY SHOP SUPERVISOR [facility] BUN 23(H) 7 - 18 MG/DL 01/03/2024 4:25 AM [facility] CREATININE S/P/B 1.24(H) 0.55 - 1.02 MG/DL 01/03/2024 4:25 AM [facility] SODIUM S/P/B 138 136 - 145 MMOL/L 01/03/2024 4:25 AM [facility] POTASSIUM S/P/B 3.6 3.5 - 5.1 MMOL/L 01/03/2024 4:25 AM [facility] CHLORIDE S/P/B 105 97 - 115 MMOL/L 01/03/2024 4:25 AM RELAY SHOP SUPERVISOR [facility] CO2 24.8 21 - 32 MMOL/L 01/03/2024 4:25 AM [facility] CALCIUM S/P/B 10.1 8.5 - 10.1 MG/DL 01/03/2024 4:25 AM [facility] BILIRUBIN TOTAL S/P/B 0.4 0.2 - 1.2 MG/DL 01/03/2024 4:25 AM [facility] Comment: THIS ASSAY IS NOT RECOMMENDED FOR PATIENTS UNDERGOING TREATMENT WITH ELTROMBOPAG DUE TO THE POTENTIAL FOR FALSELY ELEVATED RESULTS. TOTAL PROTEIN S/P/B 9.2(H) 6.4 - 8.2 G/DL 01/03/2024 4:25 AM [facility] ALBUMIN S/P/B 3.7 3.4 - 5.0 G/DL 01/03/2024 4:25 AM [facility] AST 16 15 - 37 U/L 01/03/2024 4:25 AM [facility] ALT 20 14 - 55 U/L 01/03/2024 4:25 AM [facility] ALKALINE PHOSPHATASE S/P/B 159(H) 50 - 136 U/L 01/03/2024 4:25 AM [facility] ANION GAP 8.2 2 - 10 MMOL/L 01/03/2024 4:25 AM [facility] BUN CREATININE RATIO 18.5 6 - 26 01/03/2024 4:25 AM [facility] A/G RATIO 0.7(L) 1.0 - 2.0 RATIO 01/03/2024 4:25 AM [facility] GFR ESTIMATE 52(L) >90 ML/MIN/1.7 3 M2 01/03/2024 4:25 AM [facility] Comment: NOTE: eGFR is not calculated for patients <18 years of age or gender unknown. This is an estimated GFR calculation using the new CKD EPI creatinine equation without race and so does not require a correction factor for race. This estimated GFR should not be used for calculating drug doses. 01/03/2024 3:51 AM RELAY SHOP SUPERVISOR us Osuna Marek MD LABORATORY Final Result [facility] [address] [place] [address], * CBC W/DIFF AUTOMATED (01/03/2024 3:51 AM RELAY SHOP SUPERVISOR) Only the most recent of3 resultswithin the time period is included. WBC 8.92 4.5 - 11.0 x10'3/uL 01/03/2024 4:02 AM [facility] RBC 4.40 4.20 - 5.40 x10'6/uL 01/03/2024 4:02 AM [facility] HGB 13.1 12.0 - 16.0 G/DL 01/03/2024 4:02 AM [facility] HCT 39.3 38.0 - 48.0 % 01/03/2024 4:02 AM [facility] MCV 89.3 81.0 - 99.0 FL 01/03/2024 4:02 AM [facility] MCH 29.8 27.0 - 31.0 PG 01/03/2024 4:02 AM [facility] MCHC 33.3 32.0 - 36.0 G/DL 01/03/2024 4:02 AM [facility] RDW 13.1 11.5 - 14.5 % 01/03/2024 4:02 AM [facility] PLT 300 130 - 400 x10'3/uL 01/03/2024 4:02 AM [facility] MPV 11.0 9.3 - 12.2 FL 01/03/2024 4:02 AM [facility] DIFFERENTIAL TYPE AUTOMATED DIFFERENTIAL 01/03/2024 4:02 AM [facility] NEUTROPHILS % 69.9 % 01/03/2024 4:02 AM RELAY SHOP SUPERVISOR [facility] LYMPHOCYTES % 25.1 % 01/03/2024 4:02 AM [facility] MONOCYTES % 3.7 % 01/03/2024 4:02 AM [facility] EOSINOPHILS 0.4 % 01/03/2024 4:02 AM RELAY SHOP SUPERVISOR [facility] BASOPHILS 0.7 % 01/03/2024 4:02 AM RELAY SHOP SUPERVISOR [facility] IMMATURE GRANS % 0.2 % 01/03/20 4:02 AM RELAY SHOP SUPERVISOR [facility] ABS. NEUTROPHILS 6.23 1.80 - 7.70 x10'3/uL 01/03/2024 4:02 AM [facility] ABS. LYMPHOCYTES 2.24 1.00 - 4.80 x10'3/uL 01/03/2024 4:02 AM [facility] ABS. MONOCYTES 0.33 0.24 - 0.86 x10'3/uL 01/03/2024 4:02 AM [facility] ABS. EOSINOPHILS 0.04 0.04 - 0.36 x10'3/uL 01/03/2024 4:02 AM RELAY SHOP SUPERVISOR [facility] ABS. BASOPHILS 0.06 0.01 - 0.08 x10'3/uL 01/03/2024 4:02 AM RELAY SHOP SUPERVISOR [facility] ABS. IMMATURE GRANULOCYTES 0.02 0.00 - 0.49 x10'3/uL 01/03/2024 4:02 AM [facility] 01/03/2024 3:51 AM RELAY SHOP SUPERVISOR Enrrique Jara MD LABORATORY Final Result [facility] [address] [place] [address], * USV ART REST W ADRIANA LOW EXT (12/19/2023 1:28 PM CDT) Anatomical Region Laterality Modality Extremity Vascular Ultraso und 12/19/2023 12:4 6 PM CDT Narrative 12/22/2023 7:57 PM CDT ?ARTERIAL DOPPLER - ADRIANA ?BILATERAL LOWER EXTREMITY ? VASCULAR LAB Pat.Name: ??LENA YOUNGBLOOD ?Pat.ID: ?[id number] ? St.Date: ?? 12/19/2023 ? Refer.MD: ??[id number] Exam Time: 12:46:00 PM ? Study Type:MARINO [...] ADRIANA BILATERAL LOWER EXTREMITY VASCULAR LAB Pat.Name: LENA YOUNGBLOOD Pat.ID: [id number] .Date: 12/19/2023 Hany.: [id number], Zoila gilman Exam Time: 12:46:00 PM Study Type:MARINO VS Arterial Doppler Legs NOHEMY Age: 2 1970,53Y Sex: F Sonogrphr: Reynaldo Blue Jann Pat. Stat.:Outpatient History / Clinical:DM, s/p left [...] Signature> 12/22/2023 07:57 PM Hubert Barrera M.D. Hubert Cummings DPM [facility] Final Res ult * A1C (BACK OFFICE) (12/13/2023) [facility] HGB A1C 8.2 % [facility],[place] 12/13/2023 Yasmin Segura II, MD LABORATORY Final R esult [facility] [facility] [address] [place] [address], * (ABNORMAL) BASIC METABOLIC PANEL (12/02/2023 5:28 AM CDT) Only the most recent of2 resultswithin the time period is included. [facility] GLUCOSE 106(H) 70 - 99 MG/DL 12/02/2023 5:58 AM CDT [facility] BUN 15 7 - 18 MG/DL 12/02/2023 5:58 AM CDT [facility] CREATININE S/P/B 1.03(H) 0.55 - 1.02 MG/DL 12/02/2023 5:58 AM CDT [facility] SODIUM S/P/B 140 136 - 145 MMOL/L 12/02/2023 5:58 AM CDT [facility] POTASSIUM S/P/B 3.7 3.5 - 5.1 MMOL/L 12/02/2023 5:58 AM CDT [facility] CHLORIDE S/P/B 107 97 - 115 MMOL/L 12/02/2023 5:58 AM CDT [facility] CO2 28.5 21 - 32 MMOL/L 12/02/2023 5:58 AM T [facility] CALCIUM S/P/B 9.4 8.5 - 10.1 MG/DL 12/02/2023 5:58 AM CDT [facility] ANION GAP 4.5 2 - 10 MMOL/L 12/02/2023 5:58 AM T [facility] BUN CREATININE RATIO 14.6 6 - 26 12/02/2023 5:58 AM T [facility] GFR ESTIMATE 65(L) >90 ML/MIN/1.7 3 M2 12/02/2023 5:58 AM T [facility] Comment: NOTE: eGFR is not calculated for patients <18 years of age or gender unknown. This is an estimated GFR calculation using the new CKD EPI creatinine equation without race and so does not require a correction factor for race. This estimated GFR should not be used for calculating drug doses. 12/02/2023 5:28 AM CDT us Reynaldo Alexis PA-C LABORATORY Final Result Performing Organization Address [facility] Co de Phone Number [facility] [address] [place] [phone], * (ABNORMAL) POCT glucose (12/01/2023 8:08 PM CDT) Only the most recent of4 resultswithin the time period is included. GLUCOSE POC 238(H) 70 - 99 mg/dL 12/01/2023 8:19 PM CDT [facility] 12/01/2023 8:08 PM CDT Lyly LEEC POCT ORDERABLES - DEVICE Final Result Performing Organization Address [facility] de Phone Number [facility] [address] [place] [phone], * Vancomycin Random Level (12/01/2023 5:43 AM CDT) VANCOMYCIN RANDOM 6.2 MCG/ML 12/01/2023 6:16 AM CDT [facility] Comment:NO THERAPEUTIC RANGE AVAILABLE VANCOMYCIN UNKNOWN LAST DOSE 12/01/2023 10:57 AM CDT [facility] 12/01/2023 5:43 AM CDT Reynaldo MARIE-Angelique LABORATORY Final Result Performing Organization Address City/[facility] Co de Phone Number [facility] [address] [place] [phone], * (ABNORMAL) LIPID PANEL (08/16/2023 10:47 AM CDT) CHOLESTEROL 224(H) <200 MG/DL 08/16/2023 11:58 AM [facility] TRIGLYCERIDES 321(H) <150 MG/DL 08/16/2023 11:58 AM [facility] HDL 48 >40.0 MG/DL 08/16/2023 11:58 AM [facility] LDL (CALCULATED) 112(H) <100 MG/DL 08/16/2023 11:58 AM [facility] NON HDL CHOLESTEROL 176(H) <130 MG/DL 08/16/2023 11:58 AM [facility] CHOL/HDL RATIO 4.7(H) 0.0 - 4.5 08/16/2023 11:58 AM [facility] VLDL CALCULATION 64(H) 5 - 55 MG/DL 08/16/2023 11:58 AM [facility] LIPID INTERPRETATION 08/16/2023 11:58 AM [facility] Comment: NIH CONCENSUS REPORT RECOMMENDATIONS: ?ADULT ?CHILD ??LOW RISK: ?CHOLESTEROL ? <200 ? <170 ?TRIGLYCERIDE ?<150 ?--- ?HDL ? >=60 ?--- ?LDL ? <100 ? <110 ??BORDERLINE: ?CHOLESTEROL ? 200-239 ?? 170-199 ?TRIGLYCERIDE ?150-199 ? --- ?HDL ?40-59 ?--- ?LDL ? 100-159 ?? 110-129 ??HIGH RISK: ?CHOLESTEROL ? >=240 ?>=200 ?TRIGLYCERIDE ?>=200 ? --- ?HDL ?<40 ?--- ?LDL ? >=160 ?>=130 08/16/2023 10:4 7 AM CDT us Yasmin Segura II, MD LABORATORY Final R esult [facility] [address] [id number], * MG SCREENING [facility] [place] (07/02/2021 1:12 PM CDT) Anatomical Region Laterality Modality Breast Bilateral Mammography 07/06/2021 10:1 4 AM CDT Impressions 07/06/2021 10:28 AM CDT =====IMPRESSION:===== No mammographic findings suggestive of malignancy ASSESSMENT: ACR BI-RADS 2 - BENIGN FINDING(S) Recommendation: 1: Routine Screening Bilateral COMMENTS: Ordered By: YASMIN SEGURA II Interpreted By: Wilian Cruz MD, 07/06/2021 10:14 AM Narrative 07/06/2021 10:28 AM CDT EXAMINATION: Digital bilateral screening mammogram with 3-D tomosynthesis EXAM DATE/TIME: 07/02/2021 12:33 PM REASON FOR EXAM: ??51yo female who needs routine screening. ? COMPARISON: January 2020, October 2018 TECHNIQUE: Digital screening mammography of both breasts was performed in addition to 3-D Tomosynthesis technique. This study was read with the assistance of a computer-aided detection system. TISSUE DENSITY: There are scattered areas of fibroglandular density. FINDINGS: No suspicious masses, malignant appearing calcifications, skin thickening or other abnormalities are present. ??No significant change from the prior exam. us Yasmin Segura II, MD MAMMO Final R esult * COLONOSCOPY GENERIC (11/18/2020) 11/18/2020 us [facility] Scanned SCANNING Final Resu lt from Last 3 Months or Most Recently Relevant to Health Maintenance Insurance Advance Directives * Full Code (Latest Code Status on File) Date Activated Date Inactivated Comments 11/29/2023 2:23 AM 12/02/2023 12:52 PM * Full Code Date Activated Date Inactivated Comments 03/05/2023 4:26 PM 03/09/2023 4:12 PM * Full Code Date Activated Date Inactivated Comments 11/10/2022 12:27 AM 11/11/2022 6:58 PM * Full Code Date Activated Date Inactivated Comments 10/12/2022 12:31 AM 11/08/2022 10:00 AM * Full Code Date Activated Date Inactivated Comments 09/03/2022 5:44 PM 09/09/2022 1:55 PM Care Teams Nuclear Operator Relationship Specialty Start Date End Date Yasmin Segura II, MD [address] [place] [address] PCP - General FAMILY PRACTICE 03/09/21 [place] [address] [place] [address] PODIATRY/SURGERY 05/05/22
--- OUTSIDE RECORDS SUMMARY | 2024-03-02 22:21 | XMS_ITS | Encounter Summary ---
Author Organization [facility] Address [address] [place] [address]. [place] [address] [place] [address] Care Team Providers Care Director Metabolism Name Role Phone Colton SILVEIRA MD, Abiodun Rushing Primary Care Provider Victoriano Langston MD Unavailable Encounter Details Date Type Department Care Team (Late st Contact Info) Description 12/25/2023 Orders Only [facility] Family Medicine - [place] [address] [place] [address] Abiodun Segura II, MD [address] [place] [address] Social History Tobacco Use Types [...] from your doctor or pharmacy? Often 11/29/2023 [facility] Utilities Answer Date Recorded In the [...] 11/29/2023 How often do you attend chur [employer] or rastafari services? Never 11/29/2023 Active Member of Clubs [...] Recorded Patient Health Questionnaire-2 Score 1 03/05/2023 [facility] - [...] any time in the past 12 m [facility], were you homeless or living [...] st Contact Info) Description 03/14/2024 11:45 AM MYSQL DEVELOPER Office Visit [facility] [phone] Marvin Mckeon MD [facility] [address] [place] [address] 03/20/2024 11:30 AM MYSQL DEVELOPER Office Visit [facility] Family Medicine - [place] [address] [place] [phone] Abiodun Segura II, MD [address] [place] [address] documented as of this encounter Goals Goal Patient Goal Type Associated Problems Recent Progress Patient-Stated? Author Family - family caregiver with be involved in care transitions and discharge planning Lifestyle No Natty Cheek, RN documented as of this encounter Visit Diagnoses Diagnosis Candidiasis of genitalia in female- Primary Candidiasis of vulva and vagina documented in this encounter Additional Health Concerns Assessment Noted Time PHQ-9 Depression Total Score: 0 03/08/19 22 9:30 AM MYSQL DEVELOPER documented as of this encounter Care Teams Director Metabolism Relationship Specialty Start Date End Date Abiodun Segura II, MD [address] [place] [address] PCP - General FAMILY PRACTICE 03/09/21 [place] [address] [place] [address] PODIATRY/SURGERY 05/05/22 documented as of this encounter
--- OUTSIDE RECORDS SUMMARY | 2024-03-02 22:22 | XMS_ITS | Encounter Summary ---
Author Organization [facility] Address [address] [place] [address]. [place], [place] [address] [place] [address] Care Team Providers Care Antisubmarine Weapons Officer Name Role Phone Colton SILVEIRA MD, Yasmin Rushing Primary Care Provider Victoriano Langston MD Unavailable [phone] Reason for Referral * Consultation (Urgent) - Authorized Specialty Diagnoses / Procedures Referred By Contxavier t Referred To Contact INFECTIOUS DISEASE Diagnoses Acute cystitis without hematuria Procedures OFFICE/OUTPATIENT NEW LOW MDM 30-44 MINUTES OFFICE/OUTPT VISIT,NEW,LEVL IV OFFICE/OUTPT VISIT,NEW,LEVL V OFFICE/OUTPT VISIT,EST,LEVL III OFFICE/OUTPT VISIT,EST,LEVL IV OFFICE/OUTPT VISIT,EST,LEVL V Yasmin Valenzuela II, MD [address] [place] [address] Phone: tel: fax: Tutu Farley MD [address] [place] [address] Phone: tel: fax: Referral ID Status Reason Start Date Expiration Date Visits Requested Visits Authorized [id number] Authorized Specialty Services 09/26/2023 09/25/2024 99 99 Scheduling Instructions 53 yo female with multiple recurrent resistant UTI's . Please evaluate and treat. Thanks. Reason for Visit * Reason Comments Health Maintenance Follow Up Patient pre sents for health maintenance to follow up for diabetes Encounter Details Date Type Department Care Team (Rebeca st Contact Info) Description 09/26/2023 10:50 AM CDT Office Visit [facility] Family Medicine - [place] [address] [place] [phone] Yasmin Valenzuela II, MD [address] [place] [address] Health Maintenance Follow Up (Patient presents for health maintenance to follow up for diabetes) Social History Tobacco Use Types Packs/Day Years Used Date Smoking Tobacco: Never Smokeless Tobacco: Never Tobacco Cessation:Counseling Given: No Alcohol Use Standard Drinks/Week Comments Not Currently 0 (1 standard drink = 0.6 oz pur e alcohol) few times per year [facility] Utilities Answer Date Recorded In the past 12 months has [employer], gas, oil, or water [employer] threatened to shut off services in your [...] Recorded Patient Health Questionnaire-2 Score 1 03/05/2023 [facility] - Occupational Stress Questionnaire Answer [...] place to sleep or slept in a usp (including now)? No 03/06/2023 Comments No Sex and Gender Information Value Date Recorded Sex Assigned at Female 12/17/2021 2:07 AM CDT Legal Sex Female 2:58 PM CDT Gender Identity Female 12/17/2021 2:07 AM CDT Sexual Orientation Straight 12/17/2021 2: 07 AM CDT documented as of this encounter Last Filed Vital Signs Vital Sign Reading Time Taken Comments Blood Pressure 136/72 09/26/2023 6:41 PM CDT Pulse 82 09/26/2023 10:48 AM CDT Temperature 36.5 ??C (97.7 ??F) 09/26/2023 10:48 AM C DT Respiratory Rate - - Oxygen Saturation 100% 09/26/2023 10:48 AM CDT Inhaled Oxygen Concentration - - Weight 94.3 kg (208 lb) 09/26/2023 10:48 AM CDT Height - - Body Mass Index 33.57 03/05/2023 1:02 PM [employer] TUBE BENDER documented in this encounter Functional Status * Are you deaf or do you have serious difficulty hearing Answer Date of Assessment Author Status No 03/06/2023 3:39 PM [employer] TUBE BENDER Teresa Amaya RN Active * Are you blind or do you have serious difficulty seeing, even when wearing glasses? Answer Date of Assessment Author Status Yes 03/06/2023 3:39 PM [employer] TUBE BENDER Teresa Amaya RN Active * Do you have serious difficulty walking or climbing stairs? Answer Date of Assessment Author Status Yes 03/06/2023 3:39 PM [employer] TUBE BENDER Teresa Amaya RN Active * Do you have difficulty dressing or bathing? Answer Date of Assessment Author Status Yes 03/06/2023 3:39 PM [employer] TUBE BENDER Teresa Amaya RN Active * Because of [...] Coe RN Active documented in this encounter Patient Instructions * Patient Instructions* Yasmin Valenzuela II, MD - 09/26/2023 10:50 AM CDT Referral Information Referral Call - You will receive a call regarding this referral. Depending on the type of referral,this call may come from the [facility] Referral team at [phone] or from an [facility] hospital or an [facility] clinic. Insurance Authorization - Our referral specialists will contact your insurance company to get priorauthorization, if applicable. Working with insurance companies can be cumbersome, but we are dedicated to processing your referral timely and efficiently. Please know you have a caring and competent team working on your behalf [facility] continuum of care as quickly as possible. If you have questions or concerns regarding your referral, or have not heard anything in 5 days, please call [phone]. Sunday - Sunday, 7:30 a.m. - 5 p.m. documented in this encounter Progress Notes * Yasmin Valenzuela II, MD - 09/26/2023 10:50 AM CDT Images from the original note were not included. [facility] FAMILY [address] [address] OFFICE FOLLOW UP NOTE Encounter Date: 09/26/2023 Chief Complaint: Health Maintenance Follow Up (Patient presents for health maintenance to follow up for diabetes) History of Present Illness: 53-year-old female with history of diabetes, hypertension, hyperlipidemia, Charcot foot, left toe amputation, constipation, blindness in the right eye, history of gastric ulcer, and history of multiple recurrent resistant UTIs here to follow-up on recent lab work and also with recurrent cystitis symptoms. Here for evaluation and treatment recommendations. Patient denies fevers or chills. Patient has not started semaglutide due to her needing her daughter to a sister with setting the dose. Patient plans to begin this week. Review Of Systems: Positive ROS items as noted in HPI. All other Systems were reviewed and are negative. Patient Active Problem List Diagnosis Hypercholesteremia Hypertension Type 2 diabetes mellitus ([facility] HHS/HCC) Renal disorder Chronic bilateral low back pain without sciatica Callus of foot Vision decreased Renal stones Charcot foot due to diabetes mellitus ([facility] HHS/HCC) Hot flashes due to menopause Chest pain Diabetic foot infection ([facility] Osteomyelitis ([facility]) Soft tissue infection of foot Necrotic toes ([facility]) Acquired absence of other left toe(s) ([facility]) Atherosclerosis of [place] arteries of extremities with intermittent claudication, bilateral legs ([facility]) Intractable abdominal pain Abdominal pain Intractable vomiting Peptic ulcer Epigastric abdominal pain UTI (urinary tract infection) Class 1 obesity due to excess calories with serious comorbidity and body mass index (BMI) of 32.0 to 32.9 in adult Past Medical History: Diagnosis Date Arthritis Charcot foot due to diabetes mellitus ([facility]) LEFT FOOT Constipation COVID-19 Diabetes mellitus ([facility] Diabetic neuropathy ([facility]) Gastric ulcer High cholesterol Hypertension Kidney stone [...] min Stress: No Stress Concern Present (03/06/2023) [employer] [place] [facility] - Occupational Stress Questionnaire [...] needed for Muscle Spasms. 60 tablet 5 fosfomycin (MONUROL) 3 g Pack Take 3 gm by mouth every other day for 3 doses. 3 each 0 Glucose Blood (ACCU-CHEK TAWANNA PLUS) test strip [...] as needed. Insulin Syringe-Needle U-100 (INSULIN SYRINGE 1CC/30G ) 30G X 16 1 ML Misc Use as directed to [...] times daily as needed (pain). semaglutide (OZEMPIC) 2 MG/3ML injection (PEN) Inject 0.25 mg into the skin every 7 days. [...] taking: Reported on 09/26/2023) 3 each 0 No current facility-administered medications for this visit. Allergies Allergen Reactions Ceftriaxone Rash Fish Oil Unknown Amoxicillin Rash Penicillins Rash Objective: Filed Vitals: 09/26/23 1048 09/26/23 1841 BP: (!) 149/89 136/72 Pulse: 82 Temp: 97.7 ??F (36.5 ??C) TempSrc: Temporal SpO2: 100% Weight: 94.3 kg (208 lb) Nursing note reviewed. Physical Exam Vitals and nursing note reviewed. Constitutional: General: She is not in acute distress. Appearance: Normal appearance. She is not ill-appearing. HENT: Head: Normocephalic and atraumatic. Nose: Nose normal. Eyes: Pupils: Pupils are equal, round, and reactive to light. Cardiovascular: Rate and Rhythm: Normal rate and regular rhythm. Heart sounds: Normal heart sounds. Pulmonary: Effort: Pulmonary effort is normal. Breath sounds: Normal breath sounds. Abdominal: Tenderness: There is no right CVA tenderness [...] orders placed or performed in visit on 09/26/23 URINALYSIS AUTO DIP Result Value Ref Range COLOR (U) PALE YELLOW YELLOW TRANSPARENCY CLOUDY (A) CLEAR GLUCOSE (U) NEGATIVE NEGATIVE MG/DL BILIRUBIN (U) NEGATIVE NEGATIVE KETONES MG/DL (U) NEGATIVE NEGATIVE MG/DL SPECIFIC GRAVITY (U) 1.025 1.001 - 1.035 BLOOD (U) MODERATE (2+ Hemolyzed, About 50 rbc/uL) (A) NEGATIVE U PH 6.0 5.0 - 9.0 PROTEIN (U) 3+ (>=300) (A) NEGATIVE mg/dL UROBILINOGEN 0.2 0.2 - 1.0 EU/dL = mg/dL NITRITES NEGATIVE NEGATIVE MG/DL LEUKOCYTES (U) 3+ (LARGE) (A) NEGATIVE Counseling The patient and patient's family was counseled regarding instructions for management, patient and family education and importance of compliance with treatment. Assessment: 1. Primary hypertension 2. Type 2 diabetes mellitus with diabetic neuropathic arthropathy, with long- term current use of insulin ([facility]) 3. Hypercholesteremia 4. Acute cystitis without hematuria Ambulatory referral to Infectious Disease ([facility]) fosfomycin (MONUROL) 3 g Pack URINALYSIS AUTO DIP URINE BACTERIA CULTURE 5. Class 1 obesity due to excess calories with serious comorbidity and body mass index (BMI) of 32.0 to 32.9 in adult Plan: Orders Placed This Encounter Medications fosfomycin (MONUROL) 3 g Pack 1. Primary hypertension Patient's blood pressure is at goal on recheck. We will continue amlodipine 10 mg daily, [id number] mg daily and we will recheck blood pressure at follow-up in October. 2. Type 2 diabetes mellitus with diabetic neuropathic arthropathy, with long- term current use of insulin ([facility]) Patient's hemoglobin A1c is not at goal. Patient will begin semaglutide 0.25 mg weekly and we will plan to increase dose monthly to reach desired hemoglobin A1c. Patient will likely need at least 1 mg weekly. 3. Hypercholesteremia Patient is doing well on simvastatin 40 mg daily. Last LDL is at goal. No adjustment at this time. 4. Acute cystitis without hematuria Patient has recurrent cystitis and has now multidrug-resistant organisms. As patient has been adequately treated recently we will send urine for culture and treat with fosfomycin 3 g every other day for a total of 3 doses. We will consult infectious disease for recommendations on prophylaxis. If patient grows a multidrug-resistant organism and symptoms worsen we may need to rehospitalize her for IV antibiotics. - Ambulatory referral to Infectious Disease ([facility]) - fosfomycin (MONUROL) 3 g Pack; Take 3 gm by mouth every other day for 3 doses. Dispense: 3 each; Refill: 0 - URINALYSIS AUTO DIP - URINE BACTERIA CULTURE; Future - URINE BACTERIA CULTURE 5. Class 1 obesity due to excess calories with serious comorbidity and body mass index (BMI) of 32.0 to 32.9 in adult Patient is aware that obesity contributes to hypertension, dyslipidemia, diabetes. Patient is working on Mediterranean style eating to help reduce body weight. I personally spent a total of 36 minutes on the day of the encounter. This includes nmkn-zz-znly and nzm-ctrp-zl-face time I provided on the day of the encounter & excludes time spent performing separately reportable services. There are no discontinued medications. YASMIN VALENZUELA MD 09/26/2023 Portions of this note were dictated using Vdancer speech recognition software. Occasional wrong wordor sound-alike substitutions may have occurred due to the inherent limitations of voice recognition software. Please read the chart carefully and recognize, using context, where the substitutions may have occurred. * Yasmin Valenzuela II, MD - 09/26/2023 10:50 AM CDT Patient called with results. Voice mail left. Current treatment should be adequate. Follow up as directed. documented in this encounter Plan of Treatment Upcoming Encounters Date Type Department Care Team (Late st Contact Info) Description 03/14/2024 11:45 AM [employer] TUBE BENDER Office Visit [facility] [address] Marvin Mckeon MD [address] [place] [address] 03/20/2024 11:30 AM [employer] TUBE BENDER Office Visit [facility] Family Medicine - [place] [address] [place] [phone] Yasmin Valenzuela II, MD [address] [place] [address] Scheduled Referrals Name Type Priority Associated Diagnoses Orde r Schedule Ambulatory referral to Infectious Disease ([facility]) Referral Routine Acute cystitis without hematuria Ordered: 09/26/2023 documented as of this encounter Goals Goal Patient Goal Type Associated Problems Recent Progress Patient-Stated? Author Family - family caregiver with be involved in care transitions and discharge planning Lifestyle No Natty Cheek, RN documented as of this encounter Procedures Procedure Name Priority Date/Time Associated Diagnosis Comments URINE BACTERIA CULTURE Routine 09/26/2023 11:10 AM CDT Acute cystitis without hematuria URINALYSIS AUTO DIP Routine 09/26/2023 Acute cystitis without hematuria documented in this encounter Results * (ABNORMAL) URINE BACTERIA CULTURE (09/26/2023 11:10 AM CDT) CULTURE RESULT (A) [place] Comment: ??CULTURE, URINE, ROUTINE ?Micro Number: ?[id number] ??Test Status: ? Final ??Specimen Source: ?? Urine ??Specimen Quality: ??Adequate ??Result: ?Greater than 100,000 CFU/mL of Enterococcus species ?Enterococcus sp. ?INT ?? JESSI ?? AMPICILLIN ? S ? <=2 ?? NITROFURANTOIN ? S ? <=16 ?? VANCOMYCIN ? S ? 1 S=Susceptible ??I=Intermediate ??R=Resistant ??* = Not Tested NR = Not Reported ??NN = See Therapy Comments URINE SPECIMEN OBTAINED BY CLEAN CATCH PROCEDURE / Unknown 09/26/2023 11:10 AM CDT 09/27/2023 3:41 AM CDT Narrative Resulting Agency Comment Performing Organization Information: ?Site ID: [facility] ?[facility] ?Address: [place] [address] ?Director: Robert Mendez us Yasmin Valenzuela II, MD MICROBIOLOGY - GENERAL ORDERABLES Final Result [facility] [address], * (ABNORMAL) URINALYSIS AUTO DIP (09/26/2023) COLOR (U) PALE YELLOW YELLOW [facility],[place] TRANSPARENCY CLOUDY(A) CLEAR [facility] GLUCOSE (U) NEGATIVE NEGATIVE MG/DL [facility],[place] BILIRUBIN (U) NEGATIVE NEGATIVE [facility],[place] KETONES MG/DL (U) NEGATIVE NEGATIVE MG/DL [facility],[place] SPECIFIC GRAVITY (U) 1.025 1.001 - 1.035 [facility],[place] BLOOD (U) MODERATE (2+ Hemolyzed, About 50 rbc/uL)(A) NEGATIVE [facility],[place] U PH 6.0 5.0 - 9.0 [facility],[place] PROTEIN (U) 3+ (>=300)(A) NEGATIVE mg/dL [facility],[place] UROBILINOGEN 0.2 0.2 - 1.0 EU/dL = mg/dL [facility],[place] NITRITES NEGATIVE NEGATIVE MG/DL [facility],[place] LEUKOCYTES (U) 3+ (LARGE)(A) NEGATIVE [facility],[place] URINE SPECIMEN OBTAINED BY CLEAN CATCH PROCEDURE / Unknown 09/26/2023 Yasmin Valenzuela II, MD URINE ORDERABLES Final Result [facility] [address] [place] [address], documented in this encounter Visit Diagnoses Diagnosis Primary hypertension- Primary Unspecified essential hypertension Type 2 diabetes mellitus with diabetic neuropathic arthropathy, with long-term current use of insulin ([facility]) Hypercholesteremia Pure hypercholesterolemia Acute cystitis without hematuria Acute cystitis Class 1 obesity due to excess calories with serious comorbidity and body mass index (BMI) of 32.0 to 32.9 in adult documented in this encounter Additional Health Concerns Assessment Noted Time PHQ-9 Depression Total Score: 0 03/08/19 22 9:30 AM [employer] TUBE BENDER documented as of this encounter Care Teams Antisubmarine Weapons Officer Relationship Specialty Start Date End Date Yasmin Valenzuela II, MD [address] [facility] [place] [address] PCP - General FAMILY PRACTICE 03/09/21 [place] [address] [place] [address] PODIATRY/SURGERY 05/05/22 documented as of this encounter
--- OUTSIDE RECORDS SUMMARY | 2024-03-02 22:22 | XMS_ITS | Encounter Summary ---
Author Organization [facility] Address [address] [place] [address]. [place] [address] [place] [address] Care Team Providers Care Quantitative Developer Name Role Phone Colton SILVEIRA MD, Yasmin Rushing Primary Care Provider Victoriano [place] MD Unavailable [phone] Reason for Visit * Reason Comments Hypertension Follow Up Patient presents to follow up for hypertension Encounter Details Date Type Department Care Team (Late st Contact Info) Description 08/16/2023 9:30 AM CDT Office Visit [facility] Family Medicine - [place] [address] [place] [address] Yasmin Valenzuela II, MD [address] [place] [address] Hypertension Follow Up (Patient presents to follow up for hypertension) Social History Tobacco Use Types Packs/Day Years Used Date Smoking Tobacco: Never Smokeless Tobacco: Never Tobacco Cessation:Counseling Given: No Alcohol Use Standard Drinks/Week Comments Not Currently 0 (1 standard drink = 0.6 oz pur e alcohol) few times per year [facility] Utilities Answer Date Recorded In the [...] Recorded Patient Health Questionnaire-2 Score 1 03/05/2023 [employer] - Occupational Stress [...] Sign Reading Time Taken Comments Blood Pressure 132/72 08/16/2023 5:36 PM CDT Pulse 82 08/16/2023 9:25 AM CDT Temperature 36.7 ??C (98 ??F) 08/16/2023 9:25 AM CDT Respiratory Rate - - Oxygen Saturation 99% 08/16/2023 9:25 AM CDT Inhaled Oxygen Concentration - - Weight 92.1 kg (203 lb) 08/16/2023 9:25 AM CDT Height - - Body Mass Index 32.77 03/05/2023 1:02 PM VETERAN APPEALS REVIEWER documented in this encounter Functional Status * Are you deaf or do you have serious difficulty hearing Answer Date of Assessment Author Status No 03/06/2023 3:39 PM VETERAN APPEALS REVIEWER Teresa Amaya RN Active * Are you blind or do you have serious difficulty seeing, even when wearing glasses? Answer Date of Assessment Author Status Yes 03/06/2023 3:39 PM VETERAN APPEALS REVIEWER Teresa Amaya RN Active * Do you have serious difficulty walking or climbing stairs? Answer Date of Assessment Author Status Yes 03/06/2023 3:39 PM VETERAN APPEALS REVIEWER Teresa Amaya RN Active * Do you [...] Notes * Yasmin Valenzuela II, MD - 08/16/2023 9:30 AM CDT Images from the original note were not included. [facility] [address] [address] OFFICE FOLLOW UP NOTE Encounter Date: 08/16/2023 Chief Complaint: Hypertension Follow Up (Patient presents to follow up for hypertension) History of Present Illness: 53-year-old female with history of diabetes, hypertension, hyperlipidemia, Charcot foot, left toe amputation, constipation, blindness of right eye, history of gastric ulcer who was recently treated for multiply resistant urinary tract infection and is still being followed for diabetic wounds by wound clinic here to follow-up on blood pressure and recommendations for ongoing surveillance. Patient has recurrent urinary tract infection symptoms at this time without fever or chills. Here for evaluation and treatment recommendations. Review Of Systems: Positive ROS items as noted in HPI. All other Systems were reviewed and are negative. Patient Active Problem List Diagnosis Hypercholesteremia Hypertension Type 2 diabetes mellitus (CMS/HCC HHS/HCC) Renal disorder Chronic bilateral low back pain without sciatica Callus of foot Vision decreased Renal stones Charcot foot due to diabetes mellitus (CMS/HCC HHS/HCC) Hot flashes due to menopause Chest pain Diabetic foot infection (CMS/HCC HHS/HCC) Osteomyelitis (CMS/HCC HHS/HCC) Soft tissue infection of foot Necrotic toes (CMS/HCC HHS/HCC) Acquired absence of other left toe(s) (CMS/HCC HHS/HCC) Atherosclerosis of [place] arteries of extremities with intermittent claudication, bilateral legs ([facility]) Intractable abdominal pain Abdominal pain Intractable vomiting Peptic ulcer Epigastric abdominal pain UTI (urinary tract infection) Class 1 obesity due to excess calories with serious comorbidity and body mass index (BMI) of 32.0 to 32.9 in adult Past Medical History: Diagnosis Date Arthritis Charcot foot due to diabetes mellitus ([facility]) LEFT FOOT Constipation COVID-19 Diabetes mellitus ([facility]) Diabetic neuropathy ([facility]) Gastric ulcer High cholesterol Hypertension Kidney [...] min Stress: No Stress Concern Present (03/06/2023) [employer] - Occupational Stress Questionnaire [...] as needed. Insulin Syringe-Needle U-100 (INSULIN SYRINGE 1CC/30G16 ) 30G X 16 1 ML Misc [...] Amoxicillin Rash Penicillins Rash Objective: Filed Vitals: 08/16/23 0925 08/16/23 1736 BP: (!) 148/88 132/72 Pulse: 82 Temp: 98 ??F (36.7 ??C) TempSrc: Temporal SpO2: 99% Weight: 92.1 kg (203 lb) Nursing note reviewed. Physical Exam Vitals [...] orders placed or performed in visit on 08/16/23 URINALYSIS AUTO DIP Result Value Ref Range COLOR (U) DARK YELLOW YELLOW TRANSPARENCY CLOUDY (A) CLEAR GLUCOSE (U) Trace (A) NEGATIVE MG/DL BILIRUBIN (U) NEGATIVE NEGATIVE KETONES (U) NEGATIVE NEGATIVE MG/DL SPECIFIC GRAVITY (U) 1.015 1.001 - 1.035 BLOOD (U) TRACE (Non Hemolyzed, Intact) (A) NEGATIVE U PH 5.5 5.0 - 9.0 PROTEIN (U) 3+ (>=300) [...] with long- term current use of insulin ([facility]) HEMOGLOBIN, GLYCOSYLATED semaglutide (OZEMPIC) 2 MG/3ML injection (PEN) 2. Primary hypertension CBC W/DIFF AUTOMATED COMPREHENSIVE METABOLIC PANEL 3. Acute cystitis without hematuria URINE BACTERIA CULTURE fosfomycin (MONUROL) 3 g Pack URINALYSIS AUTO DIP 4. Hypercholesteremia LIPID PANEL 5. Acquired absence of other left toe(s) ([facility] HHS/[facility]) 6. Class 1 obesity due to excess calories with serious comorbidity and body mass index (BMI) of 32.0 to 32.9 in adult Plan: Orders Placed This Encounter Medications HYDROcodone-acetaminophen (NORCO) 5-325 MG tablet traMADol (ULTRAM) 50 MG tablet semaglutide (OZEMPIC) 2 MG/3ML injection (PEN) fosfomycin (MONUROL) 3 g Pack 1. Type 2 diabetes mellitus with diabetic neuropathic arthropathy, with long- term current use of insulin ([facility] HHS/[facility]) Patient's glucose readings have been elevated. Options were reviewed and we will begin semaglutide 0.25 mg weekly and plan to recheck hemoglobin A1c in 3 months at follow-up. Will get a baseline hemoglobin A1c today. - HEMOGLOBIN, GLYCOSYLATED; Future - semaglutide (OZEMPIC) 2 MG/3ML injection (PEN); Inject 0.25 mg into the skin every 7 days. Indications: Diabetes Dispense: 3 mL; Refill: 5 2. Primary hypertension Patient's blood pressure is at goal. Will continue amlodipine 10 mg daily along with lisinopril 20 mg daily and we will recheck blood pressure at follow-up in 3 months. Will check CBC and metabolic panel to assess renal function. - CBC W/DIFF AUTOMATED; Future - COMPREHENSIVE METABOLIC PANEL; Future 3. Acute cystitis without hematuria Urinalysis in clinic indicates recurrent cystitis. Will send for culture as patient grew multiresistant bacteria previously. We will try to clear her infection with fosfomycin 1 dose every other day for a total of 3 doses. I will call patient with results. - URINE BACTERIA CULTURE; Future - URINE BACTERIA CULTURE - fosfomycin (MONUROL) 3 g Pack; Take 3 gm by mouth every other day for 3 doses. Dispense: 3 each; Refill: 0 - URINALYSIS AUTO DIP 4. Hypercholesteremia Patient is doing well on simvastatin 40 mg daily. Last LDL was at goal. We will recheck and I will call patient with results. - LIPID PANEL; Future 5. Acquired absence of other left toe(s) ([facility]) Patient will continue to follow with the wound clinic. She is doing well at this time. 6. Class 1 obesity due to excess calories with serious comorbidity and body mass index (BMI) of 32.0 to 32.9 in adult Patient is aware that obesity contributes to hypertension, diabetes, and dyslipidemia. Options werereviewed in addition to her diet and exercise program and we will add semaglutide as a GLP-1 inhibitor for adjuvant therapy. I personally spent a total of 34 minutes on the day of the encounter. This includes qdra-cr-habp and ael-kmzz-ko-face time I provided on the day of the encounter & excludes time spent performing separately reportable services. Medications Discontinued During This Encounter Medication Reason oxyCODONE-acetaminophen (PERCOCET) 5-325 MG tablet Therapy completed YASMIN VALENZUELA MD 08/16/2023 Portions of this note were dictated using [employer] speech recognition software. Occasional wrong wordor sound-alike substitutions may have occurred due to the inherent limitations of voice recognition software. Please read the chart carefully and recognize, using context, where the substitutions may have occurred. documented in this encounter Plan of Treatment Upcoming Encounters Date Type Department Care Team (Late st Contact Info) Description 03/14/2024 11:45 AM VETERAN APPEALS REVIEWER Office Visit [facility] [phone] Marvin Mckeon MD [address] [place], [place] [phone] 03/20/2024 11:30 AM VETERAN APPEALS REVIEWER Office Visit [facility] Family Medicine - [address] [address] Yasmin Valenzuela II, MD [address] [place], [place] [phone] documented as of this encounter Goals Goal Patient Goal Type Associated Problems Recent Progress Patient-Stated? Author Family - family caregiver with be involved in care transitions and discharge planning Lifestyle No Natty Cheek, RN documented as of this encounter Procedures Procedure Name Priority Date/Time Associated Diagnosis Comments URINE BACTERIA CULTURE Routine 08/16/2023 9:50 AM CDT Acute cystitis without hematuria URINALYSIS AUTO DIP Routine 08/16/2023 Acute cystitis without hematuria documented in this encounter Results * (ABNORMAL) LIPID PANEL (08/16/2023 10:47 AM CDT) CHOLESTEROL 224(H) <200 MG/DL 08/16/2023 11:58 AM CDT [facility] TRIGLYCERIDES 321(H) <150 MG/DL 08/16/2023 11:58 AM CDT [facility] HDL 48 >40.0 MG/DL 08/16/2023 11:58 AM T [facility] LDL (CALCULATED) 112(H) <100 MG/DL 08/16/2023 11:58 AM T [facility] NON HDL CHOLESTEROL 176(H) <130 MG/DL 08/16/2023 11:58 AM [facility] CHOL/HDL RATIO 4.7(H) 0.0 - 4.5 08/16/2023 11:58 AM T [facility] VLDL CALCULATION 64(H) 5 - 55 MG/DL 08/16/2023 11:58 AM [facility] LIPID INTERPRETATION 08/16/2023 11:58 AM [facility] Comment: NIH CONCENSUS REPORT RECOMMENDATIONS: ?ADULT [...] 08/16/2023 10:4 7 AM CDT us Yasmin Valenzuela II, MD LABORATORY Final R esult Performing Organization Address [facility]/State/ZIP Co de Phone Number [facility] [address] [place] [address], * (ABNORMAL) COMPREHENSIVE METABOLIC PANEL (08/16/2023 10:47 AM CDT) GLUCOSE 185(H) 70 - 99 MG/DL 08/16/2023 11:58 AM CDT [facility] BUN 22(H) 7 - 18 MG/DL 08/16/2023 11:58 AM CDT [facility] CREATININE S/P/B 1.11(H) 0.55 - 1.02 MG/DL 08/16/2023 11:58 AM CDT [facility] SODIUM S/P/B 137 136 - 145 MMOL/L 08/16/2023 11:58 AM CDT [facility] POTASSIUM S/P/B 4.2 3.5 - 5.1 MMOL/L 08/16/2023 11:58 AM CDT [facility] CHLORIDE S/P/B 107 100 - 108 MMOL/L 08/16/2023 11:58 AM CDT [facility] CO2 25.2 21 - 32 MMOL/L 08/16/2023 11:58 AM T [facility] CALCIUM S/P/B 9.4 8.5 - 10.1 MG/DL 08/16/2023 11:58 AM [facility] BILIRUBIN TOTAL S/P/B 0.5 0.2 - 1.2 MG/DL 08/16/2023 11:58 AM T [facility] Comment: THIS ASSAY IS NOT RECOMMENDED FOR PATIENTS UNDERGOING TREATMENT WITH ELTROMBOPAG DUE TO THE POTENTIAL FOR FALSELY ELEVATED RESULTS. TOTAL PROTEIN S/P/B 8.9(H) 6.4 - 8.2 G/DL 08/16/2023 11:58 AM [facility] ALBUMIN S/P/B 3.3(L) 3.4 - 5.0 G/DL 08/16/2023 11:58 AM T [facility] AST 26 15 - 37 U/L 08/16/2023 11:58 AM [facility] ALT 39 14 - 55 U/L 08/16/2023 11:58 AM [facility] ALKALINE PHOSPHATASE S/P/B 181(H) 50 - 136 U/L 08/16/2023 11:58 AM [facility] ANION GAP 4.8(L) 5 - 15 MMOL/L 08/16/2023 11:58 AM [facility] BUN CREATININE RATIO 19.8 6 - 26 08/16/2023 11:58 AM [facility] A/G RATIO 0.6(L) 1.0 - 2.0 RATIO 08/16/2023 11:58 AM [facility] GFR ESTIMATE 60(L) >90 ML/MIN/1.7 3 M2 08/16/2023 11:58 AM T [facility] Comment: NOTE: eGFR is not calculated for patients <18 years of age. This is an estimated GFR calculation using the new CKD EPI creatinine equation without race and so does not require a correction factor for race. This estimated GFR should not be used for calculating drug doses. 08/16/2023 10:4 7 AM CDT Yasmin Valenzuela II, MD LABORATORY Final R esult [facility] [address] [place] [address], [place] [phone] * (ABNORMAL) CBC W/DIFF AUTOMATED (08/16/2023 10:47 AM CDT) WBC 8.67 4.5 - 11.0 x10'3/uL 08/16/2023 11:29 AM CDT [facility] RBC 4.14(L) 4.20 - 5.40 x10'6/uL 08/16/2023 11:29 AM CDT [facility] HGB 12.4 12.0 - 16.0 G/DL 08/16/2023 11:29 AM CDT [facility] HCT 37.7(L) 38.0 - 48.0 % 08/16/2023 11:29 AM CDT [facility] MCV 91.1 81.0 - 99.0 FL 08/16/2023 11:29 AM CDT [facility] MCH 30.0 27.0 - 31.0 PG 08/16/2023 11:29 AM CDT [facility] MCHC 32.9 32.0 - 36.0 G/DL 08/16/2023 11:29 AM CDT [facility] RDW 13.2 11.5 - 14.5 % 08/16/2023 11:29 AM CDT [facility] PLT 270 130 - 400 x10'3/uL 08/16/2023 11:29 AM T [facility] MPV 11.8 9.3 - 12.2 FL 08/16/2023 11:29 AM T [facility] DIFFERENTIAL TYPE AUTOMATED DIFFERENTIAL 08/16/2023 11:29 AM T [facility] NEUTROPHILS % 60.5 % 08/16/2023 11:29 AM T [facility] LYMPHOCYTES % 32.8 % 08/16/2023 11:29 AM T [facility] MONOCYTES % 5.1 % 08/16/2023 11:29 AM T [facility] EOSINOPHILS 0.9 % 08/16/2023 11:29 AM T [facility] BASOPHILS 0.5 % 08/16/2023 11:29 AM T [facility] IMMATURE GRANS % 0.2 % 08/16/19 11:29 AM T [facility] ABS. NEUTROPHILS 5.25 1.80 - 7.70 x10'3/uL 08/16/2023 11:29 AM T [facility] ABS. LYMPHOCYTES 2.84 1.00 - 4.80 x10'3/uL 08/16/2023 11:29 AM T [facility] ABS. MONOCYTES 0.44 0.24 - 0.86 x10'3/uL 08/16/2023 11:29 AM CDT [facility] ABS. EOSINOPHILS 0.08 0.04 - 0.36 x10'3/uL 08/16/2023 11:29 AM T [facility] ABS. BASOPHILS 0.04 0.01 - 0.08 x10'3/uL 08/16/2023 11:29 AM T [facility] ABS. IMMATURE GRANULOCYTES 0.02 0.00 - 0.49 x10'3/uL 08/16/2023 11:29 AM CDT [facility] 08/16/2023 10:4 7 AM CDT Yasmin Valenzuela II, MD LABORATORY Final R [facility] Performing Organization Address [facility] de Phone Number [facility] [address] [place] [id number], * (ABNORMAL) HEMOGLOBIN, GLYCOSYLATED (08/16/2023 10:47 AM CDT) HGB A1C 11.3(H) <5.7 % 08/16/2023 11:57 AM CDT [facility] Comment: ADA GUIDELINES 2010 5.7 TO 6.4% INCREASED RISK OF DIABETES > OR = 6.5% CONSISTENT WITH DIABETES ESTIMATED AVG GLUCOSE 278 mg/dL 08/16/2023 11:57 AM CDT [facility] 08/16/2023 10:4 7 AM CDT Yasmin Valenzuela II, MD LABORATORY Final R [facility] Performing Organization Address [facility] de Phone Number [facility] [address] [place] [id number], * URINE BACTERIA CULTURE (08/16/2023 9:50 AM CDT) CULTURE RESULT [facility] [place] Comment: ??CULTURE, URINE, ROUTINE ?Micro Number: ?[id number] ??Test Status: ? Final ??Specimen Source: ?? Urine ??Specimen Quality: ??Adequate ??Result: ?No Growth URINE SPECIMEN OBTAINED BY CLEAN CATCH PROCEDURE / Unknown 08/16/2023 9:50 AM CDT 08/17/2023 3:18 AM CDT Narrative Resulting Agency Comment Performing Organization Information: ?Site ID: [id number] ?Name: [facility] ?Address: [address] [place] [id number] ?Director: Robert Mendez Yasmin Valenzuela II, MD MICROBIOLOGY - GENERAL ORDERABLES Final Result [facility] [address] [place] [address], * (ABNORMAL) URINALYSIS AUTO DIP (08/16/2023) COLOR (U) DARK YELLOW YELLOW MG-[address] TRANSPARENCY CLOUDY(A) CLEAR MG-[address] GLUCOSE (U) Trace(A) NEGATIVE MG/DL MG-[address] BILIRUBIN (U) NEGATIVE NEGATIVE MG-[address] KETONES MG/DL (U) NEGATIVE NEGATIVE MG/DL MG-[address] SPECIFIC GRAVITY (U) 1.015 1.001 - 1.035 MG-[address] BLOOD (U) TRACE (Non Hemolyzed, Intact)(A) NEGATIVE MG-[address] U PH 5.5 5.0 - 9.0 MG-[address] PROTEIN (U) 3+ (>=300)(A) NEGATIVE mg/dL MG-[address] UROBILINOGEN 0.2 0.2 - 1.0 EU/dL = mg/dL MG-[address] NITRITES NEGATIVE NEGATIVE MG/DL MG-[address] LEUKOCYTES (U) 3+ (LARGE)(A) NEGATIVE MG-[address] URINE SPECIMEN OBTAINED BY CLEAN CATCH PROCEDURE / Unknown 08/16/2023 Yasmin Valenzuela II, MD URINE ORDERABLES Final Result [facility] [address] [place] [address], documented in this encounter Visit Diagnoses Diagnosis Type 2 diabetes mellitus with diabetic neuropathic arthropathy, with long-term current use of insulin ([facility])- Primary Primary hypertension Unspecified essential hypertension Acute cystitis without hematuria Acute cystitis Hypercholesteremia Pure hypercholesterolemia Acquired absence of other left toe(s) ([facility]) Class 1 obesity due to excess calories with serious comorbidity and body mass index (BMI) of 32.0 to 32.9 in adult documented in this encounter Additional Health Concerns Assessment Noted Time PHQ-9 Depression Total Score: 0 03/08/19 22 9:30 AM VETERAN APPEALS REVIEWER documented as of this encounter Care Teams Quantitative Developer Relationship Specialty Start Date End Date Yasmin Valenzuela II, MD [address] [place] [address] PCP - General FAMILY PRACTICE 03/09/21 [place] [address] [place] [address] PODIATRY/SURGERY 05/05/22 documented as of this encounter
--- OUTSIDE RECORDS SUMMARY | 2024-03-02 22:22 | XMS_ITS | Encounter Summary ---
Author Organization [facility] Address [address] [place] [address]. [place], [place] [id number] [place] [address] Care Team Providers Care Credentials Specialist Name Role Phone Colton SILVEIRA MD, Abiodun Rushing Primary Care Provider Victoriano [place] MD Unavailable [phone] Encounter Details Date Type Department Care Team (Latest Contact Info) Description 08/16/2023 Travel Social History Tobacco Use Types Packs/Day Years Used Date Smoking Tobacco: Never Smokeless Tobacco: Never Alcohol Use Standard Drinks/Week Comments Not Currently 0 (1 standard drink = 0.6 oz pur e alcohol) few times per year [facility] Utilities Answer Date Recorded In the past 12 months has e [employer], gas, oil, or water [employer] threatened to shut off services in your [...] Recorded Patient Health Questionnaire-2 Score 1 03/05/2023 [facility] - [...] Author Status Yes 03/06/2023 3:39 PM Teresa Ceo RN Active * Do you have serious [...] st Contact Info) Description 03/14/2024 11:45 AM INDUSTRIAL RELATIONS MANAGER Office Visit [facility]-[address] [phone] Marvin Mckeon MD [facility] [address] [place] [address] 03/20/2024 11:30 AM INDUSTRIAL RELATIONS MANAGER Office Visit [facility] Family Medicine - [place] [address] [place] [phone] Abiodun Segura II, MD [address] [place] [address] documented as of this encounter Goals Goal Patient Goal Type Associated Problems Recent Progress Patient-Stated? Author Family - family caregiver with be involved in care transitions and discharge planning Lifestyle Natty Angeles, RN documented as of this encounter Visit Diagnoses Not on filedocumented in this encounter Additional Health Concerns Assessment Noted Time PHQ-9 Depression Total Score: 0 03/08/19 9:30 AM INDUSTRIAL RELATIONS MANAGER documented as of this encounter Care Teams Credentials Specialist Relationship Specialty Start Date End Date Abiodun Segura II, MD [address] [place] [address] PCP - General FAMILY PRACTICE 03/09/21 [place] [address] [place] [address] PODIATRY/SURGERY 05/05/22 documented as of this encounter
--- OUTSIDE RECORDS SUMMARY | 2024-03-02 22:22 | XMS_ITS | Encounter Summary ---
Author Organization [facility] Address [address] [place] [address]. [place] [address] [place] [address] Care Team Providers Care Cinetechnician Name Role Phone Colton SILVEIRA MD, Yasmin Rushing Primary Care Provider Victoriano Langston MD Unavailable [phone] Reason for Visit * Reason Comments Lab Results Patient presents to follow up on recent lab results Encounter Details Date Type Department Care Team (Late st Contact Info) Description 02/16/2023 1:20 PM MANAGER STORE Office Visit [facility] Family [facility] - [place] [phone] Yasmin Valenzuela II, MD [address] [place] [id number] Lab Results (Patient presents to follow up on recent lab results) Social History Tobacco Use Types Packs/Day Years Used Date Smoking Tobacco: Never Smokeless Tobacco: Never Tobacco Cessation:Counseling Given: No Alcohol Use Standard Drinks/Week Comments Not Currently 0 (1 standard drink = 0.6 oz pur e alcohol) few times per year Humiliation, Afraid, Rape, and Kick questionnair e Answer Date Recorded Within the last year, have y ou been afraid of your partner or ex-partner? No 11/10/2022 Within the last year, have y ou been humiliated or emotionally abused in other ways by your partner or ex-partner? No Within the last year, have y ou been kicked, hit, slapped, or otherwise physically hurt by your partner or ex-partner? No 11/10/2022 Within the last year, have y ou been raped or forced to have any kind of sexual activity by your partner or ex-partner? No 11/10/2022 AUDIT-C Answer Date Recorded Q1: How often [...] care, and heating? Not hard at all 11/10/2022 PHQ-2 Answer Date Recorded Patient Health Questionnaire-2 Score 0 12/13/2022 [facility] - Occupational Stress Questionnaire Answer Date Recorded Do you feel stress - tense, restless, nervous, or anxious, or unable to sleep at night because your mind is troubled all the time - these days? Only a little 09/03/2022 Hunger Vital Sign Answer Date Recorded Within the past 12 months, y ou worried that your food would run out before you got the money to buy more. Never true 11/11/19 23 Within the past 12 months, t he food you bought just didn't last and you didn't have money to get more. Never true 11/10/2022 PRAPARE - Transportation Answer Date Re corded In the past 12 months, has l ack of transportation kept you from medical appointments or from getting medications? No 10/21 In the past 12 months, has l ack of transportation kept you from meetings, work, or from getting things needed for daily living? No 11/10/2022 Housing Stability Vital Sign Answer Raymon e Recorded In the last 12 months, was t here a time when you were not able to pay the mortgage or rent on time? No 11/10/2022 In the last 12 months, how many places have you lived? 1 11/10/2022 In the last 12 months, was t here a time when you did not have a steady place to sleep or slept in a intermediate (including now)? No 11/10/2022 Comments No Sex and Gender Information Value Date Recorded Sex Assigned at Female 12/17/2021 2:07 AM CDT Legal Sex Female 2:58 PM CDT Gender Identity Female 12/17/2021 2:07 AM CDT Sexual Orientation Straight 12/17/2021 2: 07 AM CDT documented as of this encounter Last Filed Vital Signs Vital Sign Reading Time Taken Comments Blood Pressure 131/84 02/16/2023 1:30 PM MANAGER STORE Pulse 89 02/16/2023 1:30 PM MANAGER STORE Temperature 37.1 ??C (98.7 ??F) 02/16/2023 1:30 PM CS T Respiratory Rate - - Oxygen Saturation 99% 02/16/2023 1:30 PM MANAGER STORE Inhaled Oxygen Concentration - - Weight 89.4 kg (197 lb) 02/16/2023 1:30 PM MANAGER STORE Height - - Body Mass Index 31.8 12/15/2022 12:13 PM CDT documented in this encounter Functional Status * Are you deaf or do you have serious difficulty hearing Answer Date of Assessment Author Status No 11/10/2022 3:38 AM CDT Sunshine Talamantes RN Active * Are you blind or do you have serious difficulty seeing, even when wearing glasses? Answer Date of Assessment Author Status No 11/10/2022 3:38 AM CDT Sunshine Talamantes RN Active * Do you have serious difficulty walking or climbing stairs? Answer Date of Assessment Author Status Yes 11/10/2022 3:37 AM CDT Sunshine Talamantes RN Active * Do you have difficulty dressing or bathing? Answer Date of Assessment Author Status Yes 11/10/2022 3:37 AM CDT Sunshine Talamantes RN Active * Because of a physical, mental, or emotional condition, do you have difficulty doing errands alone such as visiting a doctor's office or shopping? Answer Date of Assessment Author Status Yes 11/10/2022 3:37 AM EMILEET Sunshine Talamantes RN Active documented as of this encounter Mental Status * Because of a physical, mental, or emotional condition, do you have serious difficulty concentrating, remembering, or making decisions? Answer Entry Date Author Status No 11/10/2022 3:37 AM Sunshine Segundo RN Active documented in this encounter Progress Notes * Yasmin Valenzuela II, MD - 02/16/2023 1:20 PM CST Images from the original note were not included. [facility] [address] [address] OFFICE FOLLOW UP NOTE Encounter Date: 02/16/2023 Chief Complaint: Lab Results (Patient presents to follow up on recent lab results) History of Present Illness: 52-year-old female with history of diabetes, hypertension, hyperlipidemia, Charcot foot, history ofamputation of toes of left foot, constipation, blindness right eye, gastric ulcer here to follow-upon recent lab work after having discontinued Trulicity secondary to gastritis secondary to delayed gastric emptying. Patient's stomach issues are now resolved but her average daily glucose is elevated. Patient also complains of ongoing chronic low back pain which is getting worse over the last yearand left hip pain which is also getting worse. She wonders if she needs additional interventions. Review Of Systems: Positive ROS items as noted in HPI. All other Systems were reviewed and are negative. Patient Active Problem List Diagnosis Hypercholesteremia Hypertension Type 2 diabetes mellitus (CMS/HCC) Renal disorder Chronic bilateral low back pain without sciatica Callus of foot Vision decreased Renal stones Charcot foot due to diabetes mellitus (HHS/HCC) (CMS/HCC) Hot flashes due to menopause Chest pain Diabetic foot infection (HHS/HCC) (CMS/HCC) Osteomyelitis (CMS/HCC) Soft tissue infection of foot Necrotic toes (HHS/HCC) (CMS/HCC) Acquired absence of other left toe(s) (HHS/HCC) (CMS/HCC) Atherosclerosis of [place] arteries of extremities with intermittent claudication, bilateral legs (CMS/HCC) Intractable abdominal pain Abdominal pain Intractable vomiting Peptic ulcer Epigastric abdominal pain Past Medical History: Diagnosis Date Arthritis Charcot foot due to diabetes mellitus (HHS/HCC) (CMS/HCC) LEFT FOOT Constipation COVID-19 Diabetes mellitus (HHS/HCC) (CMS/HCC) Diabetic neuropathy (HHS/HCC) (CMS/HCC) Gastric ulcer High cholesterol Hypertension Kidney stone [...] Never Smokeless tobacco: Never Vaping Use Vaping Use: Never used Substance and Sexual Activity Alcohol use: Not [...] of Health Financial Resource Strain: Low Risk (11/10/2022) Overall Financial Resource Strain (CARDIA) Difficulty of Paying Living Expenses: Not hard at all Food Insecurity: No Food Insecurity (11/10/2022) Hunger Vital Sign Worried About Running Out of Food in the Last Year: Never true Ran Out of Food in the Last Year: Never true Transportation Needs: No Transportation Needs (11/10/2022) PRAPARE - Transportation Lack of Transportation (Medical): No Lack of Transportation (Non-Medical): No Physical Activity: Not on file Stress: No Stress Concern Present (09/03/2022) [facility] - Occupational Stress Questionnaire Feeling of Stress : Only a little Social Connections: Not on file Intimate Partner Violence: Not At Risk (11/10/2022) Humiliation, Afraid, Rape, and Kick questionnaire Fear of Current or Ex-Partner: No Emotionally Abused: No Physically Abused: No Sexually Abused: No Housing Stability: Low Risk (11/10/2022) Housing Stability Vital Sign Unable to Pay for Housing in the Last Year: No Number of Places Lived in the Last Year: 1 Unstable Housing in the Last Year: No There is no immunization history for the selected administration types on file for this patient. Current Outpatient Medications Medication Sig Dispense Refill amLODIPine (NORVASC) 10 MG tablet Take 1 tablet by mouth once daily (Patient taking differently: Take 1 tablet (10 mg total) by mouth nightly at bedtime.) 90 tablet 1 calcium carbonate (TUMS) 500 MG chewable tablet Chew 1 tablet (500 mg total) by mouth 2 (two) timesdaily as needed. 60 tablet 0 clindamycin (CLEOCIN) 300 MG capsule Take 1 capsule (300 mg total) by mouth 3 (three) times daily. Glucose Blood (ACCU-CHEK TAWANNA PLUS) test strip 1 strip by Other route 2 (two) times daily. Use as instructed 200 strip 3 HUMALOG MIX 75/25 (75-25) 100 UNIT/ML Suspension Inject 55-65 Units into the skin see administration instructions. INJECT 65 UNITS SUBCUTANEOUSLY ONCE DAILY IN THE MORNING THEN 55 ONCE DAILY IN THE EVENING 40 mL 1 Insulin Syringe-Needle U-100 (INSULIN SYRINGE 1CC/30GX5/16 ) 30G X 5/16 1 ML Misc Use as directed to inject insulin twice a day. 200 each 3 lisinopril (PRINIVIL) 20 MG tablet Take 1 tablet (20 mg total) by mouth every evening. Indications:hypertension 30 tablet 03 ondansetron (ZOFRAN-ODT) 4 MG disintegrating tablet Take 1 tablet (4 mg total) by mouth every 6 (six) hours as needed for Nausea. 20 tablet 0 oxybutynin (DITROPAN) 5 MG tablet Take 1 tablet (5 mg total) by mouth 3 (three) times daily. oxyCODONE-acetaminophen (PERCOCET) 5-325 MG tablet Take 1-2 tablets by mouth every 4 (four) hours as needed for Pain. Indications: Acute Pain < 7 Day Supply 20 tablet 0 pantoprazole EC (PROTONIX) 40 MG tablet Take 1 tablet (40 mg total) by mouth 2 (two) times daily. simvastatin (ZOCOR) 40 MG tablet TAKE 1 TABLET BY MOUTH AT BEDTIME (Patient taking differently: Take 1 tablet (40 mg total) by mouth nightly at bedtime.) 90 tablet 3 sucralfate (CARAFATE) 1 G tablet Take 1 tablet (1 g total) by mouth 3 (three) times daily before meals. 90 tablet 0 venlafaxine XR (EFFEXOR-XR) 37.5 MG 24 hr capsule Take 1 capsule (37.5 mg total) by mouth daily. (Patient taking differently: Take 1 capsule (37.5 mg total) by mouth nightly at bedtime.) 90 capsule 3 dulaglutide (TRULICITY) 4.5 MG/0.5ML injection (PEN) Inject 4.5 mg into the skin once a week. Indications: Diabetes (Patient not taking: Reported on 02/16/2023) 1 pen. 0 No current facility-administered medications for this visit. Allergies Allergen Reactions Fish Oil Unknown Amoxicillin Rash Penicillins Rash Objective: Filed Vitals: 02/16/23 1330 BP: 131/84 Pulse: 89 Temp: 98.7 ??F (37.1 ??C) TempSrc: Temporal SpO2: 99% Weight: 89.4 kg (197 lb) Nursing note reviewed. Physical Exam Vitals [...] motion and neck supple. No rigidity. Comments: Back with moderate paraspinous muscle spasms lower lumbar area. Left hip with decreased range of motion with internal and external rotation. Skin: General: Skin is warm and dry. Neurological: Mental Status: She is alert and oriented to person, place, and time. Psychiatric: Mood and Affect: Mood normal. Behavior: Behavior normal. Thought Content: Thought content normal. Judgment: Judgment normal. Labs: Results for orders placed or performed during the hospital encounter of 02/03/23 HEMOGLOBIN, GLYCOSYLATED Result Value Ref Range HGB A1C 9.1 (H) <5.7 % ESTIMATED AVG GLUCOSE 214 mg/dL CBC W/DIFF AUTOMATED Result Value Ref Range WBC 8.8 4.5 - 11.0 x10'3/uL RBC 4.25 4.20 - 5.40 x10'6/uL HGB 12.8 12.0 - 16.0 G/DL HCT 38.6 38.0 - 48.0 % MCV 90.8 81.0 - 99.0 FL MCH 30.1 27.0 - 31.0 PG MCHC 33.2 32.0 - 36.0 G/DL RDW 13.1 11.5 - 14.5 % PLT 288 130 - 400 x10'3/uL MPV 11.5 9.3 - 12.2 FL DIFFERENTIAL TYPE AUTOMATED DIFFERENTIAL NEUTROPHILS 61.5 % LYMPHOCYTES 32.2 % MONOCYTES 4.5 % EOSINOPHILS 1.0 % BASOPHILS 0.6 % IMMATURE GRANS 0.2 % ABS. NEUTROPHILS TOTAL 5.39 1.80 - 7.70 x10'3/uL ABS. LYMPHOCYTES 2.82 1.00 - 4.80 x10'3/uL ABS. MONOCYTES 0.39 0.24 - 0.86 x10'3/uL ABS. EOSINOPHILS 0.09 0.04 - 0.36 x10'3/uL ABS. BASOPHILS 0.05 0.01 - 0.08 x10'3/uL ABS. IMMATURE GRANULOCYTES 0.02 0.00 - 0.49 x10'3/uL COMPREHENSIVE METABOLIC PANEL Result Value Ref Range GLUCOSE 99 70 - 99 MG/DL BUN 17 7 - 18 MG/DL CREATININE S/P/B 1.11 (H) 0.55 - 1.02 MG/DL SODIUM S/P/B 138 136 - 145 MMOL/L POTASSIUM S/P/B 3.6 3.5 - 5.1 MMOL/L CHLORIDE S/P/B 105 100 - 108 MMOL/L CO2 28.7 21 - 32 MMOL/L CALCIUM S/P/B 9.3 8.5 - 10.1 MG/DL BILIRUBIN TOTAL S/P/B 0.5 0.2 - 1.2 MG/DL TOTAL PROTEIN S/P/B 8.9 (H) 6.4 - 8.2 G/DL ALBUMIN S/P/B 3.4 3.4 - 5.0 G/DL AST 24 15 - 37 U/L ALT 30 14 - 55 U/L ALKALINE PHOSPHATASE S/P/B 155 (H) 50 - 136 U/L ANION GAP 4.3 (L) 5 - 15 MMOL/L BUN CREATININE RATIO 15.3 6 - 26 A/G RATIO 0.6 (L) 1.0 - 2.0 RATIO GFR ESTIMATE 60 (L) >90 ML/MIN/1.73 M2 LIPID PANEL Result Value Ref Range CHOLESTEROL 187 <200 MG/DL TRIGLYCERIDES 242 (H) <150 MG/DL HDL 43 >40.0 MG/DL LDL (CALCULATED) 96 <100 MG/DL NON HDL CHOLESTEROL 144 (H) <130 MG/DL CHOL/HDL RATIO 4.3 0.0 - 4.5 VLDL CALCULATION 48 5 - 55 MG/DL LIPID INTERPRETATION Counseling The patient and patient's family was counseled regarding instructions for management, patient and family education and importance of compliance with treatment. Assessment: 1. Type 2 diabetes mellitus with diabetic neuropathic arthropathy, with long- term current use of insulin ([facility]) ([facility]) 2. Primary hypertension 3. Hypercholesteremia 4. Chronic bilateral low back pain without sciatica XR LUMB SPINE AP+LAT ONLY 5. Left hip pain XR HIP LT 2V 6. Acquired absence of other left toe(s) ([facility]) ([facility]) 7. Vision decreased Plan: Orders Placed This Encounter Medications clindamycin (CLEOCIN) 300 MG capsule 1. Type 2 diabetes mellitus with diabetic neuropathic arthropathy, with long- term current use of insulin ([facility]) ([facility]) Patient's hemoglobin A1c remains above goal. This is not surprising considering we had to stop Trulicity. We will increase patient's insulin to 70 units in the morning and 60 units in the evening andwe will recheck hemoglobin A1c at follow- up in 3 months in clinic. 2. Primary hypertension Patient's blood pressure is at goal. Will continue amlodipine 10 mg daily, lisinopril 20 mg daily and low-sodium diet patient will follow-up with me in 3 months for recheck. 3. Hypercholesteremia Patient's LDL was at goal at last check on simvastatin to 40 mg daily. Will continue current dose and plan to recheck lipids in 6 to 12 months. 4. Chronic bilateral low back pain without sciatica Patient's chronic and worsening lower back pain is concerning for nerve root impingement. Will obtain x-ray of low back to evaluate for disc height and will consider MRI based on findings. - XR LUMB SPINE AP+LAT ONLY; Future 5. Left hip pain Patient's left hip pain is consistent with osteoarthritis. Will obtain x-ray to evaluate for severity. Patient may need hip replacement in the future. - XR HIP LT 2V; Future 6. Acquired absence of other left toe(s) (HHS/HCC) (CMS/HCC) Patient will follow-up with podiatry for ongoing evaluation. Patient may need additional toe amputations. 7. Vision decreased Patient's vision is stable but not improved. Patient will follow-up with ophthalmology to discuss additional treatment options. I personally spent a total of 35 minutes on the day of the encounter. This includes [id number] and [id number] time I provided on the day of the encounter & excludes time spent performing separately reportable services. There are no discontinued medications. YASMIN VALENZUELA MD 02/16/2023 Portions of this note were dictated using [employer] speech recognition software. Occasional wrong wordor sound-alike substitutions may have occurred due to the inherent limitations of voice recognition software. Please read the chart carefully and recognize, using context, where the substitutions may have occurred. [facility] documented in this encounter Plan of Treatment Upcoming Encounters Date Type Department Care Team (Late st Contact Info) Description 03/14/2024 11:45 AM MANAGER STORE Office Visit [facility] [phone] Marvin Mckeon MD [facility] [address] [place], [place] [id number] 03/20/2024 11:30 AM MANAGER STORE Office Visit [facility] Family [facility] - [place] [address] [place] [phone] Yasmin Valenzuela II, MD [address] [place], [place] [id number] documented as of this encounter Goals Goal Patient Goal Type Associated Problems Recent Progress Patient-Stated? Author Family - family caregiver with be involved in care transitions and discharge planning Lifestyle No Natty Cheek, RN documented as of this encounter Results * XR HIP LT 2V (02/28/2023 3:35 PM MANAGER STORE) Anatomical Region Laterality Modality Hip Radiographic Shelli ging 03/03/2023 8:57 AM MANAGER STORE Impressions 03/03/2023 8:58 AM MANAGER STORE IMPRESSION: 1. ??No acute bony abnormality. 2. ??Vascular calcification. Ordered By: YASMIN VALENZUELA II Interpreted By: Cali Parada MD, 03/03/2023 8:57 AM Narrative 03/03/2023 8:58 AM MANAGER STORE Examination: Left hip, 2 views Exam time: 02/28/2023 Clinical history: 52 YO FEMALE WITH WORSENING LEFT HIP PAIN. ??PLEASE RULE OUT ARTHRITIC CHANGES. ??THANKS. Comparison: 12/20/2015 Technique: Frontal and frog-leg views of the left hip were obtained. Findings: No acute fracture. No dislocation. No evidence of bone destruction or erosive arthropathy. Iliopectineal and ilioischial lines are intact. Pelvic phleboliths. Vascular calcification. Procedure Note Cali Parada MD - 03/03/2023 Examination: Left hip, 2 views Exam time: 02/28/2023 Clinical history: 52 YO FEMALE WITH WORSENING LEFT HIP PAIN. PLEASE RULEOUT ARTHRITIC CHANGES. THANKS. Comparison: 12/20/2015 Technique: Frontal and frog-leg views of the left hip were obtained. Findings: No acute fracture. No dislocation. No evidence of bonedestruction or erosive arthropathy. Iliopectineal and ilioischial linesare intact. Pelvic phleboliths. Vascular calcification. IMPRESSION: 1. No acute bony abnormality. 2. Vascular calcification. Ordered By: YASMIN VALENZUELA II Interpreted By: Cali Parada MD, 03/03/2023 8:57 AM us Yasmin Valenzuela II, MD GENERAL IMAGING Final R esult * XR LUMB SPINE AP+LAT ONLY (02/28/2023 3:35 PM MANAGER STORE) Anatomical Region Laterality Modality Spine Radiographic Shelli ging 03/03/2023 8:58 AM MANAGER STORE Impressions 03/03/2023 9:00 AM MANAGER STORE IMPRESSION: Degenerative disc disease, most notable at L1-L2 and L5-S1, slightly worsened since 2020. Ordered By: YASMIN VALENZUELA II Interpreted By: Cali Parada MD, 03/03/2023 8:58 AM Narrative 03/03/2023 9:00 AM MANAGER STORE Examination: X-ray lumbar spine, 2 views. Exam time: 02/28/2023 3:30 PM Clinical history: 52 yo female with 6 months of worsening low back pain especially with prolonged standing. ??Please evaluate. Comparison: 09/29/2020 Technique: Frontal, lateral views of the lumbar spine were obtained. Findings: Vertebral body heights are normal. Intervertebral disc space narrowing, most notable at L1-L2 and L5-S1, with associated endplate sclerosis, slightly worsened since 2020. Bone alignment is normal. No diastases of sacroiliac joints. Atherosclerosis. Possible venous phleboliths. Procedure Note Cali Parada MD - 03/03/2023 Examination: X-ray lumbar spine, 2 views. Exam time: 02/28/2023 3:30 PM Clinical history: 52 yo female with 6 months of worsening low back painespecially with prolonged standing. Please evaluate. Comparison: 09/29/2020 Technique: Frontal, lateral views of the lumbar spine were obtained. Findings: Vertebral body heights are normal. Intervertebral disc spacenarrowing, most notable at L1-L2 and L5-S1, with associated endplatesclerosis, slightly worsened since 2020. Bone alignment is normal. Nodiastases of sacroiliac joints. Atherosclerosis. Possible venous phleboliths. IMPRESSION: Degenerative disc disease, most notable at L1-L2 and L5-S1, slightlyworsened since 2020. Ordered By: YASMIN VALENZUELA II Interpreted By: Cali Parada MD, 03/03/2023 8:58 AM Yasmin Valenzuela II, MD GENERAL IMAGING Final R esult documented in this encounter Visit Diagnoses Diagnosis Type 2 diabetes mellitus with diabetic neuropathic arthropathy, with long-term current use of insulin ([facility])- Primary Primary hypertension Unspecified essential hypertension Hypercholesteremia Pure hypercholesterolemia Chronic bilateral low back pain without sciatica Left hip pain Pain in joint, pelvic region and thigh Acquired absence of other left toe(s) ([facility]) Vision decreased Unspecified visual loss Chronic bilateral low back pain without sciatica Left hip pain Pain in joint, pelvic region and thigh documented in this encounter Additional Health Concerns Assessment Noted Time PHQ-9 Depression Total Score: 0 03/08/19 9:30 AM MANAGER STORE documented as of this encounter Care Teams Cinetechnician Relationship Specialty Start Date End Date Yasmin Valenzuela II, MD [address] [place] [address] PCP - General FAMILY PRACTICE 03/09/21 [place] [address] [place] [address] PODIATRY/SURGERY 05/05/22 documented as of this encounter
--- OUTSIDE RECORDS SUMMARY | 2024-03-02 22:22 | XMS_ITS | Encounter Summary ---
Author Organization [facility] Address [address] [place] [address]. [place] [address] [place] [address] Care Team Providers Care Knifeman Name Role Phone Colton SILVEIRA MD, Abiodun Rushing Primary Care Provider Victoriano Langston MD Unavailable [phone] Reason for Visit * Reason Onset Date Comments Medication Problem 03/09/2023 Encounter Details Date Type Department Care Team (Late st Contact Info) Description 03/09/2023 Telephone [facility] Family Medicine - [place] [address] [place] [address] Abiodun Segura II, MD [address] [place] [address] Medication Problem Social History Tobacco Use Types Packs/Day Years Used Date Smoking Tobacco: Never Smokeless Tobacco: Never Alcohol Use Standard Drinks/Week Comments Not Currently 0 (1 standard drink = 0.6 oz pur e alcohol) few times per year [facility] Utilities Answer Date Recorded In the past 12 months has e [employer], gas, oil, or water company threatened to [...] place to sleep or slept in a long term (including now)? No 03/06/2023 Comments No Sex [...] Progress Notes * Sydney Cobos MA - 03/09/2023 11:33 AM CST Spoke with pharmacy staff and told them okay to give the 31 G needles OR TELECOMMUNICATIONS CONSULTANT * Cristela Pereira - 03/09/2023 10:59 AM CST [facility] pharmacy needs a call back to discuss Insulin Syringe- Needle U-100 (INSULIN SYRINGE 1CC/30GX5/16 ) 30G X 516 1 ML Misc. They are not able to get the 30g in and would like to give patient 31g if that is good. Please [phone] OR TELECOMMUNICATIONS CONSULTANT documented in this encounter Plan of Treatment Upcoming Encounters Date Type Department Care Team (Late st Contact Info) Description 03/14/2024 11:45 AM SENIOR TELECOMMUNICATIONS CONSULTANT Office Visit [facility] [phone] Marvin Mckeon MD Three [facility] [address] [facility] [place], [place] [phone] 03/20/2024 11:30 AM SENIOR TELECOMMUNICATIONS CONSULTANT Office Visit [facility] Family Medicine - [place] [address] [place] [phone] Abiodun Segura II, MD [address] [place] [address] documented as of this encounter Goals Goal Patient Goal Type Associated Problems Recent Progress Patient-Stated? Author Family - family caregiver with be involved in care transitions and discharge planning Lifestyle No Natty Cheek, RN documented as of this encounter Visit Diagnoses Not on filedocumented in this encounter Additional Health Concerns Assessment Noted Time PHQ-9 Depression Total Score: 0 03/08/19 22 9:30 AM SENIOR TELECOMMUNICATIONS CONSULTANT documented as of this encounter Care Teams Knifeman Relationship Specialty Start Date End Date Abiodun Segura II, MD [address] [place] [address] PCP - General FAMILY PRACTICE 03/09/21 [place] [address] [place] [address] PODIATRY/SURGERY 05/05/22 documented as of this encounter
--- OUTSIDE RECORDS SUMMARY | 2024-03-02 22:22 | XMS_ITS | Encounter Summary ---
Author Organization [facility] Address [address] [place] [address]. [place], [place] [address] [place] [address] Care Team Providers Care Director Of Professional Services Name Role Phone Colton SILVEIRA MD, Abiodun Rushing Primary Care Provider Victoriano Langston MD Unavailable [phone] Encounter Details Date Type Department Care Team (Latest Contact Info) Description 07/30/2023 Scan HEALTH INFO SRVCS Scanned, Doc Med Group Social History Tobacco Use Types Packs/Day Years Used Date Smoking Tobacco: Never Smokeless Tobacco: Never Alcohol Use Standard Drinks/Week Comments Not Currently 0 (1 standard drink = 0.6 oz pur e alcohol) few times per year [facility] Utilities Answer Date Recorded In the past 12 months has [facility] [employer], gas, oil, or water [employer] threatened to shut off services in your [...] Recorded Patient Health Questionnaire-2 Score 1 03/05/2023 [facility] - [...] place to sleep or slept in a senior care (including now)? No 03/06/2023 Comments No Sex [...] Assessment Author Status No 03/06/2023 3:39 PM Tersea Coe RN Active * Are you blind [...] st Contact Info) Description 03/14/2024 11:45 AM FISHING ROD MECHANIC Office Visit [facility] [phone] Marvin Mckeon MD [facility] [address] [place] [address] 03/20/2024 11:30 AM FISHING ROD MECHANIC Office Visit [facility] Medical [facility] Family Medicine - [place] [address] [place] [phone] Abiodun Segura II, MD 100 [place] [address] documented as of this encounter Goals Goal Patient Goal Type Associated Problems Recent Progress Patient-Stated? Author Family - family caregiver with be involved in care transitions and discharge planning Lifestyle No Natty Cheek, RN documented as of this encounter Visit Diagnoses Not on filedocumented in this encounter Additional Health Concerns Assessment Noted Time PHQ-9 Depression Total Score: 0 03/08/19 9:30 AM FISHING ROD MECHANIC documented as of this encounter Care Teams Director Of Professional Services Relationship Specialty Start Date End Date Abiodun Segura II, MD [address] [place] [address] PCP - General FAMILY PRACTICE 03/09/21 [place] [address] [place] [address] PODIATRY/SURGERY 05/05/22 documented as of this encounter
--- OUTSIDE RECORDS SUMMARY | 2024-03-02 22:22 | XMS_ITS | Encounter Summary ---
Author Organization [facility] Address [address] [place] [address]. [place], [place] [address] [place] [address] Care Team Providers Care Supervisor Cell Room Name Role Phone Colton SILVEIRA MD, Abiodun Rushing Primary Care Provider Victoriano Langston MD Unavailable [phone] Encounter Details Date Type Department Care Team (Latest Contact Info) Description 12/30/2022 Scan HEALTH INFO SRVCS Scanned, Doc Med Group Social History Tobacco Use Types Packs/Day Years Used Date Smoking Tobacco: Never Smokeless Tobacco: Never Alcohol Use Standard Drinks/Week Comments Not Currently 0 (1 standard drink = 0.6 oz pur e alcohol) few times per year [facility] Utilities Answer Date Recorded In the past 12 months has [facility] [employer], gas, oil, or water [employer] threatened to shut off services in your [...] Recorded Patient Health Questionnaire-2 Score 1 03/05/2023 [facility] - Occupational [...] place to sleep or slept in a detention (including now)? No 03/06/2023 Comments No Sex [...] serious difficulty walking or climbing stairs? Yes 03/06/2023 3:39 PM Teresa Coe RN A ctive * Question Answer Date of Assessment Author Status Do you have difficulty dressing or bathing? Yes 03/06/2023 3:39 PM Teresa Coe RN Active Because of a physical, mental, or emotional condition, do you have difficulty doing errands alone such as visiting a doctor's office or shopping? Yes 03/06/2023 3:39 PM Teresa Coe RN Ac tive * Are you deaf or do you have serious difficulty hearing Answer Date of Assessment Author Status No 11/10/2022 3:38 AM Sunshine Segundo RN Active * Are you blind or do you have serious difficulty seeing, even when wearing glasses? Answer Date of Assessment Author Status No 11/10/2022 3:38 AM Sunshine Segundo RN Active * Do you have serious difficulty walking or climbing stairs? Answer Date of Assessment Author Status Yes 11/10/2022 3:37 AM Sunshine Segundo RN Active * Do you have difficulty dressing or bathing? Answer Date of Assessment Author Status Yes 11/10/2022 3:37 AM Sunshine Segundo RN Active * Because of a physical, mental, or emotional condition, do you have difficulty doing errands alone such as visiting a doctor's office or shopping? Answer Date of Assessment Author Status Yes 11/10/2022 3:37 AM Sunshine Segundo RN Active documented as of this encounter Mental Status * Question Answer Entry Date Author Status Because of a physical, mental, or emotional condition, do you have serious difficulty concentrating, remembering, or making decisions? No 03/06/2023 3:39 PM CITY DISPATCH SUPERVISOR Teresa Amaya RN Active * Because of a physical, mental, or emotional condition, do you have serious difficulty concentrating, remembering, or making decisions? Answer Entry Date Author Status No 11/10/2022 3:37 AM CDT Sunshine Talamantes RN Active documented in this encounter Plan of Treatment Upcoming Encounters Date Type Department Care Team (Late st Contact Info) Description 03/14/2024 11:45 AM CITY DISPATCH SUPERVISOR Office Visit [facility] [phone] Marvin Mckeon MD Three [facility] [address] [place] [phone] 03/20/2024 11:30 AM CITY DISPATCH SUPERVISOR Office Visit [facility] Family Medicine - [place] [address] [place] [phone] Abiodun Segura II, MD 100 [place], [place] [phone] documented as of this encounter Goals Goal Patient Goal Type Associated Problems Recent Progress Patient-Stated? Author Family - family caregiver with be involved in care transitions and discharge planning Lifestyle No Natty Cheek RN documented as of this encounter Visit Diagnoses Not on filedocumented in this encounter Additional Health Concerns Assessment Noted Time PHQ-9 Depression Total Score: 0 03/08/19 9:30 AM CITY DISPATCH SUPERVISOR documented as of this encounter Care Teams Supervisor Cell Room Relationship Specialty Start Date End Date Abiodun Segura II, MD [address] [place] [id number] PCP - General FAMILY PRACTICE 03/09/21 [place] [address] [place] [address] PODIATRY/SURGERY 05/05/22 documented as of this encounter
--- OUTSIDE RECORDS SUMMARY | 2024-03-02 22:22 | XMS_ITS | Encounter Summary ---
Author Organization [facility] Address [address] [place] [address]. [place] [address] [place] [address] Care Team Providers Care Golf Tournament Consultant Name Role Phone Colton SILVEIRA MD, Yasmin Rushing Primary Care Provider Victoriano Langston MD Unavailable [phone] Reason for Visit * Reason Comments UTI Patient presents wit h UTI Encounter Details Date Type Department Care Team (Late st Contact Info) Description 03/05/2023 12:40 PM COUNTY HISTORIAN Office Visit [facility] Family Medicine - [place] [address] [place] [address] Yasmin Valenzuela II, MD [address] [place] [address] UTI (Patient presents with UTI) Social History Tobacco Use Types Packs/Day Years Used Date Smoking Tobacco: Never Smokeless Tobacco: Never Tobacco Cessation:Counseling Given: No Alcohol Use Standard Drinks/Week Comments Not Currently 0 (1 standard drink = 0.6 oz pur e alcohol) few times per year [facility] Utilities Answer Date Recorded In the past 12 months has th e electric, gas, oil, or water [employer] threatened to shut off services in your [...] Recorded Patient Health Questionnaire-2 Score 1 03/05/2023 [facility] - Occupational Stress Questionnaire Answer Date Recorded [...] Sign Reading Time Taken Comments Blood Pressure 154/82 03/05/2023 12:22 PM COUNTY HISTORIAN Pulse 88 03/05/2023 12:08 PM COUNTY HISTORIAN Temperature 37.4 ??C (99.3 ??F) 03/05/2023 12:[address] Respiratory Rate - - Oxygen Saturation 99% 03/05/2023 12:08 PM COUNTY HISTORIAN Inhaled Oxygen Concentration - - Weight 90.3 kg (199 lb) 03/05/2023 12:08 PM COUNTY HISTORIAN Height - - Body Mass Index 32.12 12/15/2022 12:13 PM CDT documented in this [...] Notes * Yasmin Valenzuela II, MD - 03/05/2023 12:40 PM CST Images from the original note were not included. [facility] [address] [address] OFFICE FOLLOW UP NOTE Encounter Date: 03/05/2023 Chief Complaint: UTI (Patient presents with UTI) History of Present Illness: 52-year-old female with history of diabetes, hypertension, hyperlipidemia, Charcot foot, left toe amputation, constipation, blindness of right eye, and gastric ulcer who presents with recurrent urinary tract infections over the last few months. Most recent symptoms started 2 weeks ago and ciprofloxacin was started last week. Over the weekend patient developed right flank pain, chills, fatigue. Here for evaluation and treatment recommendations. Review [...] other left toe(s) (HHS/HCC) (CMS/HCC) Atherosclerosis of [place] arteries of extremities with intermittent claudication, bilateral [...] Stress: No Stress Concern Present (09/03/2022) [place] [place] [facility] - Occupational Stress Questionnaire [...] (two) timesdaily as needed. 60 tablet 0 ciprofloxacin (CIPRO) 500 MG tablet Take 1 tablet (500 mg total) by mouth 2 (two) times daily for 7days. 14 tablet 0 clindamycin (CLEOCIN) 300 MG capsule [...] mouth nightly at bedtime.) 90 capsule 3 No current facility-administered medications for this visit. Allergies Allergen Reactions Fish Oil Unknown Amoxicillin Rash Penicillins Rash Objective: Filed Vitals: 03/05/23 1208 03/05/23 1222 BP: (!) 170/89 (!) 154/82 Pulse: 88 Temp: 99.3 ??F (37.4 ??C) TempSrc: Temporal SpO2: 99% Weight: 90.3 kg (199 lb) Nursing note [...] Normal breath sounds. Abdominal: Tenderness: There is right CVA tenderness. Musculoskeletal: Cervical back: Normal range of motion and neck supple. No rigidity. Comments: Exam is unchanged. Skin: General: Skin is warm and dry. Neurological: Mental Status: She is alert and oriented to person, place, and time. Psychiatric: Mood and Affect: Mood normal. Behavior: Behavior normal. Thought Content: Thought content normal. Judgment: Judgment normal. Labs: Results for orders placed or performed in visit on 03/05/23 URINALYSIS AUTO DIP Result Value Ref Range COLOR (CSF) pale yellow TRANSPARENCY CLOUDY (A) CLEAR GLUCOSE (U) NEGATIVE NEGATIVE MG/DL BILIRUBIN (U) NEGATIVE NEGATIVE KETONES (U) NEGATIVE NEGATIVE MG/DL SPECIFIC GRAVITY (U) 1.025 1.001 - 1.035 BLOOD (U) MODERATE (2+ Hemolyzed, About 50 rbc/uL) (A) NEGATIVE U PH 5.5 5.0 - 9.0 PROTEIN (U) 3+ (>=300) (A) NEGATIVE mg/dL UROBILINOGEN 0.2 0.2 - 1.0 EU/dL = mg/dL NITRITES NEGATIVE NEGATIVE MG/DL LEUKOCYTES (U) 3+ (LARGE) (A) NEGATIVE Counseling The patient and patient's family was counseled regarding instructions for management, patient and family education and importance of compliance with treatment. Assessment: 1. Polyuria URINALYSIS AUTO DIP CULTURE URINE 2. Cystitis URINALYSIS AUTO DIP CULTURE URINE 3. Type 2 diabetes mellitus with diabetic neuropathic arthropathy, with long- term current use of insulin ([facility] ([facility]) 4. Primary hypertension 5. Vision decreased 6. Acquired absence of other left toe(s) ([facility] ([facility]) Plan: No orders of the defined types were placed in this encounter. 1. Polyuria Patient with persistent polyuria despite being on ciprofloxacin. We will send urine for culture. - URINALYSIS AUTO DIP - CULTURE URINE; Future - CULTURE URINE 2. Cystitis Patient now has right flank pain and chills concerning for development of pyelonephritis. Patient has had severe urinary tract infection complications in the past. Emergency department was contacted and agreed to see patient in consultation to rule out pyelonephritis or abscess as a contributing factor secondary to patient worsening on oral antibiotics which have worked well for her in the past. Further plans pending their evaluation. - URINALYSIS AUTO DIP - CULTURE URINE; Future - CULTURE URINE 3. Type 2 diabetes mellitus with diabetic neuropathic arthropathy, with long- term current use of insulin ([facility] ([facility]) Patient's insulin was adjusted at last visit and she is now doing 70 units in the morning and 60 inthe evening. However, her blood glucose levels have been elevated while she has been ill. Will continue current dose and we will plan to follow-up for readjustment in the near future. 4. Primary hypertension Patient's blood pressure is elevated likely secondary to acute illness. Will continue amlodipine 10mg daily and lisinopril 20 mg daily and we will recheck blood pressure on follow-up. Will consider increasing lisinopril to 40 mg daily if needed. 5. Vision decreased Patient will continue to follow with ophthalmology. Will continue to work on risk factor control. 6. Acquired absence of other left toe(s) ([facility]) ([facility]/HCC) Patient will continue wound care as scheduled. I personally spent a total of 32 minutes on the day of the encounter. This includes [id number] and qto-[id number]-au-face time I provided on the day of the encounter & excludes time spent performing separately reportable services. Medications Discontinued During This Encounter Medication Reason dulaglutide (TRULICITY) 4.5 MG/0.5ML injection (PEN) Formulary change YASMIN VALENZUELA MD 03/05/2023 Portions of this note were dictated using Fourteen IP speech recognition software. Occasional wrong wordor sound-alike substitutions may have occurred due to the inherent limitations of voice recognition software. Please read the chart carefully and recognize, using context, where the substitutions may have occurred. TY HISTORIAN documented in this encounter Plan of Treatment Upcoming Encounters Date Type Department Care Team (Late st Contact Info) Description 03/14/2024 11:45 AM COUNTY HISTORIAN Office Visit [facility] [phone] Marvin Mckeon MD [address] [facility] [address] [place] [address] 03/20/2024 11:30 AM COUNTY HISTORIAN Office Visit [facility] Family Medicine - [place] [address] [place] [phone] Yasmin Valenzuela II, MD [address] [place] [address] documented as of this encounter Goals Goal Patient Goal Type Associated Problems Recent Progress Patient-Stated? Author Family - family caregiver with be involved in care transitions and discharge planning Lifestyle Natty Angeles, RN documented as of this encounter Procedures Procedure Name Priority Date/Time Associated Diagnosis Comments URINE BACTERIA CULTURE Routine 03/05/2023 12:37 PM COUNTY HISTORIAN Cystitis Polyuria URINALYSIS AUTO DIP Routine 03/05/2023 Cystitis Polyuria documented in this encounter Results * (ABNORMAL) CULTURE URINE (03/05/2023 12:37 PM COUNTY HISTORIAN) CULTURE RESULT (A) [facility] Comment: ??CULTURE, URINE, ROUTINE ?Micro Number: ?[id number] ??Test Status: ? Final ??Specimen Source: ?? Urine ??Specimen Quality: ??Adequate ??Result: ?Greater than 100,000 CFU/mL of Enterococcus species ??COMMENT: ? Additional non-predominating organism(s) isolated. ? These organisms, commonly found on external and ? internal genitalia, are considered colonizers. No ? further testing performed. ?Enterococcus sp. ?INT ?? JESSI ?? AMPICILLIN ? S ? <=2 ?? NITROFURANTOIN ? S ? <=16 ?? VANCOMYCIN ? S ? 1 S=Susceptible ??I=Intermediate ??R=Resistant ??* = Not Tested NR = Not Reported ??NN = See Therapy Comments URINE SPECIMEN OBTAINED BY CLEAN CATCH PROCEDURE / Unknown 03/05/2023 12:37 PM COUNTY HISTORIAN 03/06/2023 1:44 AM COUNTY HISTORIAN Narrative Resulting Agency Comment Performing Organization Information: ?Site ID: [id number] ?Name: [facility] ?Address: [facility] [place] [address] ?Director: Robert Mendez us Yasmin Valenzuela II, MD MICROBIOLOGY - GENERAL ORDERABLES Final Result [facility] [address] [place] [address], * (ABNORMAL) URINALYSIS AUTO DIP (03/05/2023) COLOR (CSF) pale yellow [facility] TRANSPARENCY CLOUDY(A) CLEAR [facility] GLUCOSE (U) NEGATIVE NEGATIVE MG/DL [facility]-[address] BILIRUBIN (U) NEGATIVE NEGATIVE [facility]-[address] KETONES MG/DL (U) NEGATIVE NEGATIVE MG/DL [facility]-[address] SPECIFIC GRAVITY (U) 1.025 1.001 - 1.035 [facility] BLOOD (U) MODERATE (2+ Hemolyzed, About 50 rbc/uL)(A) NEGATIVE [facility]-[address] U PH 5.5 5.0 - 9.0 [facility] PROTEIN (U) 3+ (>=300)(A) NEGATIVE mg/dL [facility] UROBILINOGEN 0.2 0.2 - 1.0 EU/dL = mg/dL [facility] NITRITES NEGATIVE NEGATIVE MG/DL [facility]-[address] LEUKOCYTES (U) 3+ (LARGE)(A) NEGATIVE [facility]-[address] URINE SPECIMEN OBTAINED BY CLEAN CATCH PROCEDURE / Unknown 03/05/2023 Yasmin Valenzuela II, MD URINE ORDERABLES Final Result [facility] [facility] [address] [place] [address], documented in this encounter Visit Diagnoses Diagnosis Polyuria- Primary Cystitis Cystitis, unspecified Type 2 diabetes mellitus with diabetic neuropathic arthropathy, with long-term current use of insulin ([facility]) Primary hypertension Unspecified essential hypertension Vision decreased Unspecified visual loss Acquired absence of other left toe(s) ([facility]) documented in this encounter Additional Health Concerns Assessment Noted Time PHQ-9 Depression Total Score: 0 03/08/19 22 9:30 AM COUNTY HISTORIAN documented as of this encounter Care Teams Golf Tournament Consultant Relationship Specialty Start Date End Date Yasmin Valenzuela II, MD [address] [place] [address] PCP - General FAMILY PRACTICE 03/09/21 [place] [address] [place] [address] PODIATRY/SURGERY 05/05/22 documented as of this encounter
--- OUTSIDE RECORDS SUMMARY | 2024-03-02 22:22 | XMS_ITS | Encounter Summary ---
Author Organization [facility] Address [address] [place] [address]. [place] [address] [place] [address] Care Team Providers Care Galvanizer Zinc Name Role Phone Colton SILVEIRA MD, Yasmin Rushing Primary Care Provider Victoriano Langston MD Unavailable [phone] Encounter Details Date Type Department Care Team (Late st Contact Info) Description 02/28/2023 3:15 PM TIME BUYER - 02/28/2023 11:59 PM [facility] Hospital Encounter [facility] Diagnostic Imaging [address] [place], [place] [id number] Yasmin Valenzuela II, MD [address] [place] [address] Discharge Disposition: Home or Self Care (Routine [...] Recorded Patient Health Questionnaire-2 Score 0 12/13/2022 [facility] of Occupat ional [facility] - Occupational Stress Questionnaire Answer Date [...] in a long term (including now)? No 11/10/2022 Comments No Sex [...] Author Status Yes 11/10/2022 3:37 AM CDT uSnshine Talamantes RN Active * Because of a [...] Segundo RN Active documented in this encounter Medications at Time of Discharge calcium carbonate (TUMS) 500 MG chewable tablet Chew 1 tablet (500 mg total) by mouth 2 (two) times daily as needed. 60 tablet 3 ondansetron (ZOFRAN-ODT) 4 MG disintegrating tablet Take 1 tablet (4 mg total) by mouth every 6 (six) hours as needed for Nausea. 20 tablet 3 oxybutynin (DITROPAN) 5 MG tablet Take 1 tablet (5 mg total) by mouth 3 (three) times daily as needed (pain). 3 amLODIPine (NORVASC) 10 MG tabletIndications:H ypertension, unspecified type Take 1 tablet by mouth once daily 90 tablet 1 3 06/15/19 24 clindamycin (CLEOCIN) 300 MG capsule Take 1 capsule (300 mg total) by mouth 3 (three) times daily. 3 03/05/19 24 dulaglutide (TRULICITY) 4.5 MG/0.5ML injection (PEN)Indications:Di abetes Mellitus Inject 4.5 mg into the skin once a week. Indications: Diabetes 1 pen. 3 03/05/19 24 Glucose Blood (ACCU-CHEK TAWANNA PLUS) test stripIndications:Ty pe 2 diabetes mellitus with diabetic neuropathic arthropathy, with long-term current use of insulin ([facility] HHS/HCC) 1 strip by Other route 2 (two) times daily. Use as instructed 200 strip 3 3 02/26/19 25 HUMALOG MIX 75/25 (75-25) 100 UNIT/ML SuspensionIndicatio ns:Type 2 diabetes mellitus with retinopathy, with long-term current use of insulin, macular edema presence unspecified, unspecified laterality, unspecified retinopathy severity ([facility]/HCC HHS/HCC) Inject 55-65 Units into the skin see administration instructions. INJECT 65 UNITS SUBCUTANEOUSLY ONCE DAILY IN THE MORNING THEN 55 ONCE DAILY IN THE EVENING 40 mL 1 3 05/14/19 24 Insulin Syringe-Needle U-100 (INSULIN SYRINGE 1CC/30GX5/16 ) 30G X 5/16 1 ML MiscIndications:Typ e 2 diabetes mellitus with diabetic neuropathic arthropathy, with long-term current use of insulin ([facility]/HCC HHS/HCC) Use as directed to inject insulin twice a day. 200 each 3 3 03/09/19 24 lisinopril (PRINIVIL) 20 MG tabletIndications:h ypertension Take 1 tablet (20 mg total) by mouth every evening. Indications: hypertension 30 tablet 03 3 06/15/19 24 oxyCODONE-acetamino phen (PERCOCET) 5-325 MG tabletIndications:A cute Pain < 7 Day Supply Take 1-2 tablets by mouth every 4 (four) hours as needed for Pain. Indications: Acute Pain < 7 Day Supply 20 tablet 3 08/16/19 24 pantoprazole EC (PROTONIX) 40 MG tablet Take 1 tablet (40 mg total) by mouth 2 (two) times daily. 3 03/05/19 24 simvastatin (ZOCOR) 40 MG tabletIndications:H ypercholesteremia [The details of the medication are not available because there are pending changes by a home health clinician.] 90 tablet 3 2 06/15/19 24 sucralfate (CARAFATE) 1 G tablet Take 1 tablet (1 g total) by mouth 3 (three) times daily before meals. 90 tablet 3 03/05/19 24 venlafaxine XR (EFFEXOR-XR) 37.5 MG 24 hr capsuleIndications: Hot flashes due to menopause Take 1 capsule (37.5 mg total) by mouth daily. 90 capsule 3 3 03/05/19 24 documented as of this encounter Progress Notes * Yasmin Valenzuela II, MD - 02/28/2023 3:15 PM CST Xray results reviewed. Minor abnormalities noted. Will review with patient at upcoming appointment and make adjustments if needed. BUYER documented in this encounter Plan of Treatment Upcoming Encounters Date Type Department Care Team (Late st Contact Info) Description 03/14/2024 11:45 AM TIME BUYER Office Visit [facility] [phone] Marvin Mckeon MD Three [facility] [address] [place] [address] 03/20/2024 11:30 AM TIME BUYER Office Visit [facility] Medical [facility] Family Medicine - [place] [phone] Yasmin Valenzuela II, MD [address] [place] [phone] documented as of this encounter Goals Goal Patient Goal Type Associated Problems Recent Progress Patient-Stated? Author Family - family caregiver with be involved in care transitions and discharge planning Lifestyle No Natty Cheek RN documented as of this encounter Procedures Procedure Name Priority Date/Time Associated Diagnosis Comments XR LUMB SPINE AP+LAT ONLY Routine 02/28/2023 3:35 PM TIME BUYER Chronic bilateral low back pain without sciatica XR HIP LT 2V Routine 02/28/2023 3:35 PM TIME BUYER Left hip pain documented in this encounter Results * XR HIP LT 2V (02/28/2023 3:35 PM TIME BUYER) Anatomical Region Laterality Modality Hip Radiographic Shelli ging 03/03/2023 8:57 AM TIME BUYER Impressions 03/03/2023 8:58 AM TIME BUYER IMPRESSION: 1. ??No acute bony abnormality. 2. ??Vascular calcification. Ordered By: YASMIN VALENZUELA II Interpreted By: Cali Parada MD, 03/03/2023 8:57 AM Narrative 03/03/2023 8:58 AM TIME BUYER Examination: Left hip, 2 views Exam time: [...] By: YASMIN VALENZUELA II Interpreted By: Cali aPrada MD, 03/03/2023 8:57 AM us Yasmin Valenzuela II, MD GENERAL IMAGING Final R esult * XR LUMB SPINE AP+LAT ONLY (02/28/2023 3:35 PM TIME BUYER) Anatomical Region Laterality Modality Spine Radiographic Shelli ging 03/03/2023 8:58 AM TIME BUYER Impressions 03/03/2023 9:00 AM TIME BUYER IMPRESSION: Degenerative disc disease, most notable at L1-L2 and L5-S1, slightly worsened since 2020. Ordered By: YASMIN VALENZUELA II Interpreted By: Cali Parada MD, 03/03/2023 8:58 AM Narrative 03/03/2023 9:00 AM TIME BUYER Examination: X-ray lumbar spine, 2 views. Exam [...] documented in this encounter Visit Diagnoses Diagnosis Chronic bilateral low back pain without sciatica Left hip pain Pain in joint, pelvic region and thigh documented in this encounter Additional Health Concerns Assessment Noted Time PHQ-9 Depression Total Score: 0 03/08/19 9:30 AM TIME BUYER documented as of this encounter Care Teams Galvanizer Zinc Relationship Specialty Start Date End Date Yasmin Valenzuela II, MD [address] [place] [address] PCP - General FAMILY PRACTICE 03/09/21 [place] [address] [place] [address] PODIATRY/SURGERY 05/05/22 documented as of this encounter
--- OUTSIDE RECORDS SUMMARY | 2024-03-02 22:22 | XMS_ITS | Encounter Summary ---
Author Organization [facility] Address [address] [place] [address]. [place] [address] [place] [address] Care Team Providers Care Towel Hemmer Name Role Phone Colton SILVEIRA MD, Abiodun Rushing Primary Care Provider Victoriano aLngston MD Unavailable [phone] Encounter Details Date Type Department Care Team (Late st Contact Info) Description 02/03/2023 10:30 AM ORCHARD SPRAYER - 02/03/2023 11:59 PM [facility] Hospital Encounter [facility] Laboratory [place], [place] [phone] Abiodun Segura II, MD [address] [place] [address] Discharge Disposition: Home or Self Care [...] Recorded Patient Health Questionnaire-2 Score 0 12/13/2022 [facility] of Occupat ional [facility] - Occupational Stress Questionnaire Answer Date Recorded [...] slept in a penitentiary (including now)? No 11/10/2022 Comments No Sex [...] Assessment Author Status No 11/10/2022 3:38 AM EMILEET Sunshine Talamantes RN Active * Do you [...] daily 90 tablet 1 3 06/15/19 24 dulaglutide (TRULICITY) 4.5 MG/0.5ML injection (PEN)Indications:Di abetes Mellitus Inject 4.5 mg into the skin once a week. Indications: Diabetes 1 pen. 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 Use as instructed 200 strip 3 3 02/26/19 25 HUMALOG MIX 75/25 (75-25) 100 UNIT/ML SuspensionIndicatio ns:Type 2 diabetes mellitus with retinopathy, with long-term current use of insulin, macular edema presence unspecified, unspecified laterality, unspecified retinopathy severity ([facility]CC HHS/HCC) Inject 55-65 Units into the skin see administration instructions. INJECT 65 UNITS SUBCUTANEOUSLY ONCE DAILY IN THE MORNING THEN 55 ONCE DAILY IN THE EVENING 40 mL 1 3 05/14/19 24 Insulin Syringe-Needle U-100 (INSULIN SYRINGE 1CC/30GX5/16 ) 30G X 5/16 1 ML MiscIndications:Typ e 2 diabetes mellitus with diabetic neuropathic arthropathy, with long-term current use of insulin ([facility]/HCC HHS/HCC) Use as directed to inject [...] as of this encounter Progress Notes * Abiodun Segura II, MD - 02/03/2023 10:30 AM CST Lab results reviewed. Minor abnormalities noted. Will review with patient at upcoming appointment and make adjustments if needed. ARD SPRAYER documented in this encounter Plan of Treatment Upcoming Encounters Date Type Department Care Team (Late st Contact Info) Description 03/14/2024 11:45 AM ORCHARD SPRAYER Office Visit [facility] [phone] Marvin Mckeon MD [address] [facility] [address] [place] [address] 03/20/2024 11:30 AM ORCHARD SPRAYER Office Visit [facility] Family Medicine - [place] [phone] Abiodun Segura II, MD [address] [place] [address] documented as of this encounter Goals Goal Patient Goal Type Associated Problems Recent Progress Patient-Stated? Author Family - family caregiver with be involved in care transitions and discharge planning Lifestyle Natty Angeles, RN documented as of this encounter Procedures Procedure Name Priority Date/Time Associated Diagnosis Comments HEMOGLOBIN, GLYCOSYLATED Routine 02/03/2023 10:42 AM ORCHARD SPRAYER Type 2 diabetes mellitus with diabetic neuropathic arthropathy, with long-term current use of insulin ([facility]) COMPREHENSIVE METABOLIC PANEL Routine 02/03/2023 10:42 AM ORCHARD SPRAYER Primary hypertension LIPID PANEL Routine 02/03/2023 10:42 AM ORCHARD SPRAYER Hypercholesteremia CBC W/DIFF AUTOMATED Routine 02/03/2023 10:42 AM ORCHARD SPRAYER Primary hypertension documented in this encounter Results * (ABNORMAL) LIPID PANEL (02/03/2023 10:42 AM ORCHARD SPRAYER) CHOLESTEROL 187 <200 MG/DL 02/03/2023 11:44 AM [facility] TRIGLYCERIDES 242(H) <150 MG/DL 02/03/2023 11:44 AM [facility] HDL 43 >40.0 MG/DL 02/03/2023 11:44 AM [facility] LDL (CALCULATED) 96 <100 MG/DL 02/03/2023 11:44 AM [facility] NON HDL CHOLESTEROL 144(H) <130 MG/DL 02/03/2023 11:44 AM [facility] CHOL/HDL RATIO 4.3 0.0 - 4.5 02/03/2023 11:44 AM [facility] VLDL CALCULATION 48 5 - 55 MG/DL 02/03/2023 11:44 AM [facility] LIPID INTERPRETATION 02/03/2023 11:44 AM ORCHARD SPRAYER [facility] Comment: NIH CONCENSUS REPORT RECOMMENDATIONS: ?ADULT ?CHILD ??LOW RISK: ?CHOLESTEROL ? <200 ? <170 ?TRIGLYCERIDE ?<150 ?--- ?HDL ? >=60 ?--- ?LDL ? <100 ? <110 ??BORDERLINE: ?CHOLESTEROL ? 200-239 ?? 170-199 ?TRIGLYCERIDE ?150-199 ? --- ?HDL ?40-59 ?--- ?LDL ? 100-159 ?? 110-129 ??HIGH RISK: ?CHOLESTEROL ? >=240 ?>=200 ?TRIGLYCERIDE ?>=200 ? --- ?HDL ?<40 ?--- ?LDL ? >=160 ?>=130 02/03/2023 10:4 2 AM ORCHARD SPRAYER us Abiodun Segura II, MD LABORATORY Final R esult [facility] [address] [place] [address], [place] [phone] * (ABNORMAL) COMPREHENSIVE METABOLIC PANEL (02/03/2023 10:42 AM ORCHARD SPRAYER) [facility] GLUCOSE 99 70 - 99 MG/DL 02/03/2023 11:44 AM [facility] BUN 17 7 - 18 MG/DL 02/03/2023 11:44 AM [facility] CREATININE S/P/B 1.11(H) 0.55 - 1.02 MG/DL 02/03/2023 11:44 AM [facility] SODIUM S/P/B 138 136 - 145 MMOL/L 02/03/2023 11:44 AM [facility] POTASSIUM S/P/B 3.6 3.5 - 5.1 MMOL/L 02/03/2023 11:44 AM [facility] CHLORIDE S/P/B 105 100 - 108 MMOL/L 02/03/2023 11:44 AM [facility] CO2 28.7 21 - 32 MMOL/L 02/03/2023 11:44 AM [facility] CALCIUM S/P/B 9.3 8.5 - 10.1 MG/DL 02/03/2023 11:44 AM [facility] BILIRUBIN TOTAL S/P/B 0.5 0.2 - 1.2 MG/DL 02/03/2023 11:44 AM [facility] Comment: THIS ASSAY IS NOT RECOMMENDED FOR PATIENTS UNDERGOING TREATMENT WITH ELTROMBOPAG DUE TO THE POTENTIAL FOR FALSELY ELEVATED RESULTS. TOTAL PROTEIN S/P/B 8.9(H) 6.4 - 8.2 G/DL 02/03/2023 11:44 AM [facility] ALBUMIN S/P/B 3.4 3.4 - 5.0 G/DL 02/03/2023 11:44 AM [facility] AST 24 15 - 37 U/L 02/03/2023 11:44 AM [facility] ALT 30 14 - 55 U/L 02/03/2023 11:44 AM [facility] ALKALINE PHOSPHATASE S/P/B 155(H) 50 - 136 U/L 02/03/2023 11:44 AM [facility] ANION GAP 4.3(L) 5 - 15 MMOL/L 02/03/2023 11:44 AM [facility] BUN CREATININE RATIO 15.3 6 - 26 02/03/2023 11:44 AM [facility] A/G RATIO 0.6(L) 1.0 - 2.0 RATIO 02/03/2023 11:44 AM [facility] GFR ESTIMATE 60(L) >90 ML/MIN/1.7 3 M2 02/03/2023 11:44 AM [facility] Comment: NOTE: eGFR is not calculated for patients <18 years of age. This is an estimated GFR calculation using the new CKD EPI creatinine equation without race and so does not require a correction factor for race. This estimated GFR should not be used for calculating drug doses. 02/03/2023 10:4 2 AM [facility] Abiodun Segura II, MD LABORATORY Final R esult [facility] [address] [place] [address], * CBC W/DIFF AUTOMATED (02/03/2023 10:42 AM ORCHARD SPRAYER) WBC 8.8 4.5 - 11.0 x10'3/uL 02/03/2023 11:05 AM [facility] RBC 4.25 4.20 - 5.40 x10'6/uL 02/03/2023 11:05 AM [facility] HGB 12.8 12.0 - 16.0 G/DL 02/03/2023 11:05 AM [facility] HCT 38.6 38.0 - 48.0 % 02/03/2023 11:05 AM [facility] MCV 90.8 81.0 - 99.0 FL 02/03/2023 11:05 AM [facility] MCH 30.1 27.0 - 31.0 PG 02/03/2023 11:05 AM [facility] MCHC 33.2 32.0 - 36.0 G/DL 02/03/2023 11:05 AM [facility] RDW 13.1 11.5 - 14.5 % 02/03/2023 11:05 AM [facility] PLT 288 130 - 400 x10'3/uL 02/03/2023 11:05 AM [facility] MPV 11.5 9.3 - 12.2 FL 02/03/2023 11:05 AM [facility] DIFFERENTIAL TYPE AUTOMATED DIFFERENTIAL 02/03/2023 11:05 AM [facility] NEUTROPHILS % 61.5 % 02/03/2023 11:05 AM [facility] LYMPHOCYTES % 32.2 % 02/03/2023 11:05 AM [facility] MONOCYTES % 4.5 % 02/03/2023 11:05 AM [facility] EOSINOPHILS 1.0 % 02/03/2023 11:05 AM [facility] BASOPHILS 0.6 % 02/03/2023 11:05 AM [facility] IMMATURE GRANS % 0.2 % 02/04/20 11:05 AM [facility] ABS. NEUTROPHILS TOTAL 5.39 1.80 - 7.70 x10'3/uL 02/03/2023 11:05 AM [facility] ABS. LYMPHOCYTES 2.82 1.00 - 4.80 x10'3/uL 02/03/2023 11:05 AM [facility] ABS. MONOCYTES 0.39 0.24 - 0.86 x10'3/uL 02/03/2023 11:05 AM [facility] ABS. EOSINOPHILS 0.09 0.04 - 0.36 x10'3/uL 02/03/2023 11:05 AM [facility] ABS. BASOPHILS 0.05 0.01 - 0.08 x10'3/uL 02/03/2023 11:05 AM [facility] ABS. IMMATURE GRANULOCYTES 0.02 0.00 - 0.49 x10'3/uL 02/03/2023 11:05 AM [facility] 02/03/2023 10:4 2 AM ORCHARD SPRAYER Abiodun Segura II, MD LABORATORY Final R esult [facility] [address] [place] [address], * (ABNORMAL) HEMOGLOBIN, GLYCOSYLATED (02/03/2023 10:42 AM ORCHARD SPRAYER) HGB A1C 9.1(H) <5.7 % 02/03/2023 11:32 AM [facility] Comment: ADA GUIDELINES 2010 5.7 TO 6.4% INCREASED RISK OF DIABETES > OR = 6.5% CONSISTENT WITH DIABETES ESTIMATED AVG GLUCOSE 214 mg/dL 02/03/2023 11:32 AM ORCHARD SPRAYER [facility] 02/03/2023 10:4 2 AM ORCHARD SPRAYER Abiodun Segura II, MD LABORATORY Final R esult [facility] [address] [place] [address], documented in this encounter Visit Diagnoses Diagnosis Type 2 diabetes mellitus with diabetic neuropathic arthropathy, with long-term current use of insulin ([facility]) Primary hypertension Unspecified essential hypertension Hypercholesteremia Pure hypercholesterolemia documented in this encounter Additional Health Concerns Assessment Noted Time PHQ-9 Depression Total Score: 0 03/08/19 9:30 AM ORCHARD SPRAYER documented as of this encounter Care Teams Towel Hemmer Relationship Specialty Start Date End Date Abiodun Segura II, MD [address] [place] [address] PCP - General FAMILY PRACTICE 03/09/21 [place] [address] [place] [address] PODIATRY/SURGERY 05/05/22 documented as of this encounter
--- OUTSIDE RECORDS SUMMARY | 2024-03-02 22:22 | XMS_ITS | Encounter Summary ---
Author Organization [facility] Address [address] [place] [address]. [place] [address] [place] [address] Care Team Providers Care Rehabilitation Worker Name Role Phone Colton SILVEIRA MD, Abiodun Rushing Primary Care Provider Victoriano Langston MD Unavailable [phone] Reason for Visit * Reason Onset Date Comments TCM 03/13/2023 Encounter Details Date Type Department Care Team (Late st Contact Info) Description 03/13/2023 Telephone [facility] Family Medicine - [place] [address] [place] [address] Abiodun Segura II, MD [address] [place] [address] TCM Social History Tobacco Use Types Packs/Day Years Used Date Smoking Tobacco: Never Smokeless Tobacco: Never Alcohol Use Standard Drinks/Week Comments Not Currently 0 (1 standard drink = 0.6 oz pur e alcohol) few times per year [facility] Utilities Answer Date Recorded In [...] Recorded Patient Health Questionnaire-2 Score 1 03/05/2023 [facility] of Occupat ional [facility] - Occupational Stress Questionnaire Answer Date Recorded [...] place to sleep or slept in a assisted (including now)? No 03/06/2023 Comments No Sex [...] Progress Notes * Opal Quintana MA - 03/13/2023 8:51 AM CST Follow up call to patient post hospitalization Date of hospital discharge: [facility] Patient discharged from: 03/09/23 Discharge diagnosis/diagnoses: UTI Procedures performed while inpatient: No Begin the medication reconciliation process (completed at first face to face visit) Any follow up services needed: No Education on self management: Yes Assess adherence with treatment (medication) regimen and provide support. Does patient have access to care and services (rides, etc)? Yes Appointment scheduled for follow up in the office (7 days if high complexity or within 14 days for medium complexity) Appointment Date: 03/19/23 Time: 11:10 RUCTIONAL TECHNOLOGY DIRECTOR documented in this encounter Plan of Treatment Upcoming Encounters Date Type Department Care Team (Late st Contact Info) Description 03/14/2024 11:45 AM INSTRUCTIONAL TECHNOLOGY DIRECTOR Office Visit [facility] [phone] Marvin Mckeon MD Three [facility] [address] [place] [address] 03/20/2024 11:30 AM INSTRUCTIONAL TECHNOLOGY DIRECTOR Office Visit [facility] Family Medicine - [address] [phone] Abiodun Segura II, MD [address] [place] [address] documented as of this encounter Goals Goal Patient Goal Type Associated Problems Recent Progress Patient-Stated? Author Family - family caregiver with be involved in care transitions and discharge planning Lifestyle No Natty Cheek, RN documented as of this encounter Visit Diagnoses Not on filedocumented in this encounter Additional Health Concerns Assessment Noted Time PHQ-9 Depression Total Score: 0 03/08/19 22 9:30 AM INSTRUCTIONAL TECHNOLOGY DIRECTOR documented as of this encounter Care Teams Rehabilitation Worker Relationship Specialty Start Date End Date Abiodun Segura II, MD [address] [place] [address] PCP - General FAMILY PRACTICE 03/09/21 [place] [address] [place] [address] PODIATRY/SURGERY 05/05/22 documented as of this encounter
--- OUTSIDE RECORDS SUMMARY | 2024-03-02 22:22 | XMS_ITS | Encounter Summary ---
Author Organization [facility] Address [address] [address]. [place] [address] [place] [address] Care Team Providers Care Distance Learning Administrator Name Role Phone Colton SILVEIRA MD, Abiodun Rushing Primary Care Provider Victoriano Langston MD Unavailable [phone] Encounter Details Date Type Department Care Team (Late st Contact Info) Description 06/15/2023 Orders Only [facility] Family Medicine - [place] [address] [place] [address] Abiodun Segura II, MD [address] [place] [address] Social History Tobacco Use Types Packs/Day Years Used Date Smoking Tobacco: Never Smokeless Tobacco: Never Alcohol Use Standard Drinks/Week Comments Not Currently 0 (1 standard drink = 0.6 oz pur e alcohol) few times per year [facility] Utilities Answer Date Recorded In the past 12 months has [employer] electric, gas, oil, or water company threatened [...] Recorded Patient Health Questionnaire-2 Score 1 03/05/2023 [facility] - Occupational Stress [...] in a alf (including now)? No 03/06/2023 Comments No Sex [...] st Contact Info) Description 03/14/2024 11:45 AM ONCOLOGY TECHNICIAN Office Visit [facility] [address] Marvin Mckeon MD [facility] [address] [place] [address] 03/20/2024 11:30 AM ONCOLOGY TECHNICIAN Office Visit [facility] Family Medicine - [place] [address] [place] [phone] Abiodun Segura II, MD [address] [place], [place] [id number] documented as of this encounter Goals Goal Patient Goal Type Associated Problems Recent Progress Patient-Stated? Author Family - family caregiver with be involved in care transitions and discharge planning Lifestyle No Natty Cheek, RN documented as of this encounter Visit Diagnoses Diagnosis Chronic idiopathic constipation- Primary Unspecified constipation Hypertension, unspecified type Hypercholesteremia Pure hypercholesterolemia Muscle spasm Spasm of muscle documented in this encounter Additional Health Concerns Assessment Noted Time PHQ-9 Depression Total Score: 0 03/08/19 22 9:30 AM ONCOLOGY TECHNICIAN documented as of this encounter Care Teams Distance Learning Administrator Relationship Specialty Start Date End Date Abiodun Segura II, MD [address] [place] [address] PCP - General FAMILY PRACTICE 03/09/21 [place] [address] [place] [address] PODIATRY/SURGERY 05/05/22 documented as of this encounter
--- OUTSIDE RECORDS SUMMARY | 2024-03-02 22:22 | XMS_ITS | Encounter Summary ---
Author Organization [facility] Address [address] [place] [address]. [place] [address] [place] [address] Care Team Providers Care Edi Architect Name Role Phone Colton SILVEIRA MD, Abiodun Rushing Primary Care Provider Victoriano Langston MD Unavailable [phone] Encounter Details Date Type Department Care Team (Latest Contact Info) Description 02/16/2023 Travel Social History Tobacco Use Types Packs/Day [...] Recorded Patient Health Questionnaire-2 Score 0 12/13/2022 [facility] - [...] slept in a retirement (including now)? No 11/10/2022 Comments No Sex [...] Author Status Yes 11/10/2022 3:37 AM Sunshine Sgeundo RN Active * Because of a physical, [...] Segundo RN Active documented in this encounter Plan of Treatment Upcoming Encounters Date Type Department Care Team (Late st Contact Info) Description 03/14/2024 11:45 AM PROJECT SCHEDULER Office Visit [facility] [phone] Marvin Mckeon MD [facility] [address] [place] [address] 03/20/2024 11:30 AM PROJECT SCHEDULER Office Visit [facility] Family Medicine - [place] [address] [place] [phone] Abiodun Segura II, MD [address] [place] [address] documented as of this encounter Goals Goal Patient Goal Type Associated Problems Recent Progress Patient-Stated? Author Family - family caregiver with be involved in care transitions and discharge planning Lifestyle No Natty Cheek, RN documented as of this encounter Visit Diagnoses Not on filedocumented in this encounter Additional Health Concerns Assessment Noted Time PHQ-9 Depression Total Score: 0 03/08/19 22 9:30 AM PROJECT SCHEDULER documented as of this encounter Care Teams Edi Architect Relationship Specialty Start Date End Date Abiodun Segura II, MD 100 [place] [address] PCP - General FAMILY PRACTICE 03/09/21 [place] [address] [place] [address] PODIATRY/SURGERY 05/05/22 documented as of this encounter
--- OUTSIDE RECORDS SUMMARY | 2024-03-02 22:22 | XMS_ITS | Encounter Summary ---
Author Organization [facility] Address [address] [place] [address]. [place] [address] [place] [address] Care Team Providers Care Fashion Stylist Name Role Phone Colton SILVEIRA MD, Yasmin Rushing Primary Care Provider Victoriano Langston MD Unavailable [phone] Reason for Visit * Reason Comments TCM Patient presents for hopital follow up for abdominal pain and recurrent UTI Encounter Details Date Type Department Care Team (Late st Contact Info) Description 03/19/2023 11:10 AM PHYSICIST NUCLEAR Office Visit [facility] Family Medicine - [place] [address] Yasmin Valenzuela II, MD [address] [place] [address] TCM (Patient presents for hopital follow up for abdominal pain and recurrent UTI) Social History Tobacco Use Types Packs/Day Years Used Date Smoking Tobacco: Never Smokeless Tobacco: Never Tobacco Cessation:Counseling Given: No Alcohol Use Standard Drinks/Week Comments Not Currently 0 (1 standard drink = 0.6 oz pur e alcohol) few times per year [facility] Utilities Answer Date Recorded In [...] health care facility (including now)? No 03/06/2023 Comments No Sex and Gender Information Value Date Recorded Sex Assigned at Female 12/17/2021 2:07 AM CDT Legal Sex Female 2:58 PM CDT Gender Identity Female 12/17/2021 2:07 AM CDT Sexual Orientation Straight 12/17/2021 2: 07 AM CDT documented as of this encounter Last Filed Vital Signs Vital Sign Reading Time Taken Comments Blood Pressure 144/76 03/19/2023 11:37 AM PHYSICIST NUCLEAR Pulse 88 03/19/2023 11:11 AM PHYSICIST NUCLEAR Temperature 36.8 ??C (98.3 ??F) 03/19/2023 11:[address] Respiratory Rate - - Oxygen Saturation 98% 03/19/2023 11:11 AM PHYSICIST NUCLEAR Inhaled Oxygen Concentration - - Weight 89.8 kg (198 lb) 03/19/2023 11:11 AM PHYSICIST NUCLEAR Height - - Body Mass Index 31.96 03/05/2023 1:02 PM PHYSICIST NUCLEAR documented in this encounter Functional Status * Are you deaf or do you have serious difficulty hearing Answer Date of Assessment Author Status No 03/06/2023 3:39 PM PHYSICIST NUCLEAR Teresa Amaya RN Active * Are you blind or do you have serious difficulty seeing, even when wearing glasses? Answer Date of Assessment Author Status Yes 03/06/2023 3:39 PM PHYSICIST NUCLEAR Teresa Amaya RN Active * Do you have serious difficulty walking or climbing stairs? Answer Date of Assessment Author Status Yes 03/06/2023 3:39 PM PHYSICIST NUCLEAR Teresa Amaya RN Active * Do you [...] Notes * Yasmin Valenzuela II, MD - 03/19/2023 11:10 AM CST Images from the original note were not included. [facility] [address] [address] TCM VISIT Encounter Date: 03/19/2023 Chief Complaint: TCM (Patient presents for hopital follow up for abdominal pain and recurrent UTI) History of Present Illness: 52-year-old female with history of diabetes, hypertension, hyperlipidemia, Charcot foot, left toe amputation, constipation, blindness of right eye, and history of gastric ulcer who was recently admitted to [facility] for urinary tract infection with known history of right kidney disease making her prone to pyelonephritis and ascending UTIs. Patient developed a rash with ceftriaxone and still has itching. Patient was discharged on linezolid which she just picked up today. Patientwas admitted to [facility] from March 05 through March 09, 2023. Patient here for TCM visit. Please see TCM call from March 09 for details. I reviewed the patient's discharge summary in its entirety and reconciled patient's medications today. Review Of Systems: Positive ROS items as noted in HPI. All other Systems were reviewed and are negative. Patient Active Problem List Diagnosis Hypercholesteremia Hypertension Type 2 diabetes mellitus (CMS/HCC) Renal disorder Chronic bilateral low back pain without sciatica Callus of foot Vision decreased Renal stones Charcot foot due to diabetes mellitus (HHS/HCC) ([facility]/HCC) Hot flashes due to menopause Chest pain Diabetic foot infection (HHS/HCC) ([facility]/HCC) Osteomyelitis ([facility]/HCC) Soft tissue infection of foot Necrotic toes (HHS/HCC) ([facility]/HCC) Acquired absence of other left toe(s) ([facility]/HCC) ([facility]/HCC) Atherosclerosis of [place] arteries of extremities with intermittent claudication, bilateral legs ([facility]/HCC) Intractable abdominal pain Abdominal pain Intractable vomiting Peptic ulcer Epigastric abdominal pain UTI (urinary tract infection) Past Medical History: Diagnosis Date Arthritis Charcot foot due to diabetes mellitus (HHS/HCC) ([facility]/HCC) LEFT FOOT Constipation COVID-19 Diabetes mellitus (HHS/HCC) ([facility]/HCC) Diabetic neuropathy (HHS/HCC) ([facility]) Gastric ulcer High cholesterol Hypertension Kidney [...] min Stress: No Stress Concern Present (03/06/2023) [facility] [place] - Occupational Stress Questionnaire [...] (two) timesdaily as needed. 60 tablet 0 Glucose Blood (ACCU-CHEK TAWANNA PLUS) test [...] mouth every evening. Indications:hypertension 30 tablet 03 omeprazole (PRILOSEC) 20 MG capsule Take 1 capsule (20 mg total) by mouth daily. ondansetron (ZOFRAN-ODT) 4 MG disintegrating tablet Take 1 tablet (4 mg total) by mouth every 6 (six) hours as needed for Nausea. 20 tablet 0 oxybutynin (DITROPAN) 5 MG tablet Take 1 tablet (5 mg total) by mouth 3 (three) times daily as needed (pain). oxyCODONE-acetaminophen (PERCOCET) 5-325 MG tablet Take 1-2 tablets by mouth every 4 (four) hours as needed for Pain. Indications: Acute Pain < 7 Day Supply 20 tablet 0 simvastatin (ZOCOR) 40 MG tablet TAKE 1 TABLET BY MOUTH AT BEDTIME (Patient taking differently: Take 1 tablet (40 mg total) by mouth nightly at bedtime.) 90 tablet 3 triamcinolone (KENALOG) 0.1 % cream Apply topically 2 (two) times daily. 453.6 g 1 No current facility-administered medications for this visit. Allergies Allergen Reactions Ceftriaxone Rash Fish Oil Unknown Amoxicillin Rash Penicillins Rash Objective: Filed Vitals: 03/19/23 1111 03/19/23 1137 BP: (!) 161/91 (!) 144/76 Pulse: 88 Temp: 98.3 ??F (36.8 ??C) TempSrc: Temporal SpO2: 98% Weight: 89.8 kg (198 lb) Nursing note reviewed. Physical Exam Vitals [...] normal. Breath sounds: Normal breath sounds. Musculoskeletal: General: Normal range of motion. Cervical [...] orders placed or performed in visit on 03/19/23 URINALYSIS AUTO DIP Result Value Ref Range COLOR (U) PALE YELLOW YELLOW TRANSPARENCY CLOUDY (A) CLEAR GLUCOSE (U) 1+ (A) NEGATIVE MG/DL BILIRUBIN (U) NEGATIVE NEGATIVE KETONES (U) NEGATIVE NEGATIVE MG/DL SPECIFIC GRAVITY (U) 1.020 1.001 - 1.035 BLOOD (U) TRACE (Non Hemolyzed, Intact) (A) NEGATIVE U PH 6.0 5.0 - 9.0 PROTEIN (U) 2+ (100) (A) NEGATIVE mg/dL UROBILINOGEN 0.2 0.2 - 1.0 EU/dL = mg/dL NITRITES NEGATIVE NEGATIVE MG/DL LEUKOCYTES (U) 3+ (LARGE) (A) NEGATIVE Counseling The patient and patient's family was counseled regarding instructions for management, patient and family education and importance of compliance with treatment. Assessment: 1. Urinary frequency URINALYSIS AUTO DIP 2. Cystitis 3. Renal disorder 4. Allergic drug rash triamcinolone (KENALOG) 0.1 % cream 5. Primary hypertension CBC W/DIFF AUTOMATED COMPREHENSIVE METABOLIC PANEL 6. Type 2 diabetes mellitus with diabetic neuropathic arthropathy, with long- term current use of insulin ([facility]) ([facility]) HEMOGLOBIN, GLYCOSYLATED 7. Hypercholesteremia LIPID PANEL Plan: Orders Placed This Encounter Medications triamcinolone (KENALOG) 0.1 % cream 1. Urinary frequency Patient continues to have urinary frequency. We will conduct urinalysis to assess for possible persistent UTI. - URINALYSIS AUTO DIP 2. Cystitis Patient does appear to have persistent cystitis. Patient will begin linezolid twice daily as directed for 5 days. Patient will report to the emergency department if she develops back pain or fevers. 3. Renal disorder Patient has known scarring and hydronephrosis of right kidney. As she has had multiple instrumentation measures it is possible that she has small fistula making her prone to recurrent infections. Patient will follow-up with urology and nephrology as scheduled to discuss treatment recommendations. Patient may benefit from being on prophylactic fosfomycin once a week. 4. Allergic drug rash Patient had urticaria with Rocephin. Rocephin was added to her allergy list. Her rash is slowly resolving but still pruritic. Will treat topically with triamcinolone cream to avoid systemic steroids which is elevated her glucose in the past. - triamcinolone (KENALOG) 0.1 % cream; Apply topically 2 (two) times daily. Dispense: 453.6 g; Refill: 1 5. Primary hypertension Patient's blood pressure is near goal on lisinopril 20 mg daily and amlodipine 10 mg daily. Will continue current doses and patient will follow-up with me in May we will recheck CBC and metabolic panel prior to follow-up. - CBC W/DIFF AUTOMATED; Future - COMPREHENSIVE METABOLIC PANEL; Future 6. Type 2 diabetes mellitus with diabetic neuropathic arthropathy, with long- term current use of insulin ([facility]/HCC) ([facility]) Patient reports that her home glucose readings are improving with her current insulin dose. No adjustment at this time. We will recheck A1c prior to follow-up in May and make adjustments at that time if needed. - HEMOGLOBIN, GLYCOSYLATED; Future 7. Hypercholesteremia Patient's last LDL was at goal on simvastatin 40 mg daily. Will continue current dose and check lipids prior to follow-up in May will make adjustments if needed at that time. - LIPID PANEL; Future I personally spent a total of 42 minutes on the day of the encounter. This includes [id number] and lip-ccex-ll-face time I provided on the day of the encounter & excludes time spent performing separately reportable services. There are no discontinued medications. YASMIN VALENZUELA MD 03/19/2023 Portions of this note were dictated using Capt[employer] speech recognition software. Occasional wrong wordor sound-alike substitutions may have occurred due to the inherent limitations of voice recognition software. Please read the chart carefully and recognize, using context, where the substitutions may have occurred. ICIST NUCLEAR * Yasmin Valenzuela II, MD - 03/19/2023 11:10 AM CST Patient called with results. She will complete current antibiotics and follow up if symptoms return. Follow up as directed. ICIST NUCLEAR documented in this encounter Plan of Treatment Upcoming Encounters Date Type Department Care Team (Late st Contact Info) Description 03/14/2024 11:45 AM PHYSICIST NUCLEAR Office Visit [facility] [address] Marvin Mckeon MD [address] [facility] [address] [place], [place] [address] 03/20/2024 11:30 AM PHYSICIST NUCLEAR Office Visit [facility] Family Medicine - [place] [address] [place] [phone] Yasmin Valenzuela II, MD [address] [place], [place] [id number] Scheduled Orders Name Type Priority Associated Diagnoses Orde r Schedule HEMOGLOBIN, GLYCOSYLATED Lab Routine Type 2 diabetes mellitus with diabetic neuropathic arthropathy, with long-term current use of insulin ([facility]) Expected: 03/19/2023 (Approximate), Expires: 03/19/2024 CBC W/DIFF AUTOMATED Lab Routine Primary hypertension Expected: 03/19/2023 (Approximate), Expires: 03/19/2024 COMPREHENSIVE METABOLIC PANEL Lab Routine Primary hypertension Expected: 03/19/2023 (Approximate), Expires: 03/19/2024 LIPID PANEL Lab Routine Hypercholesteremia Expected: 03/19/2023 (Approximate), Expires: 03/19/2024 documented as of this encounter Goals Goal Patient Goal Type Associated Problems Recent Progress Patient-Stated? Author Family - family caregiver with be involved in care transitions and discharge planning Lifestyle No Natty Cheek, RN documented as of this encounter Procedures Procedure Name Priority Date/Time Associated Diagnosis Comments URINE BACTERIA CULTURE Routine 03/19/2023 12:00 PM PHYSICIST NUCLEAR Cystitis URINALYSIS AUTO DIP Routine 03/19/2023 Urinary frequency documented in this encounter Results * (ABNORMAL) CULTURE URINE (03/19/2023 12:00 PM PHYSICIST NUCLEAR) CULTURE RESULT (A) [place] Comment: ??CULTURE, URINE, ROUTINE ?Micro Number: ?[id number] ??Test Status: ? Final ??Specimen Source: ?? [...] OBTAINED BY CLEAN CATCH PROCEDURE / Unknown 03/19/2023 12:00 PM PHYSICIST NUCLEAR 03/20/2023 12:06 AM PHYSICIST NUCLEAR Narrative Resulting Agency Comment Performing Organization Information: ?Site ID: [id number] ?Name: [facility] ?Address: [facility] [place] [address] ?Director: Robert Mendez Yasmin Valenzuela II, MD MICROBIOLOGY - GENERAL ORDERABLES Final Result [facility] [address] [place] [address], * (ABNORMAL) URINALYSIS AUTO DIP (03/19/2023) COLOR (U) PALE YELLOW YELLOW [facility]-[address],[place] TRANSPARENCY CLOUDY(A) CLEAR [facility]-[address],[place] GLUCOSE (U) 1+(A) NEGATIVE MG/DL [facility]-[address],[place] BILIRUBIN (U) NEGATIVE NEGATIVE MG-[address],[place] KETONES MG/DL (U) NEGATIVE NEGATIVE MG/DL MG-[address],[place] SPECIFIC GRAVITY (U) 1.020 1.001 - 1.035 MG-[address],[place] BLOOD (U) TRACE (Non Hemolyzed, Intact)(A) NEGATIVE MG-[address],[place] U PH 6.0 5.0 - 9.0 MG-[address],[place] PROTEIN (U) 2+ (100)(A) NEGATIVE mg/dL [facility]-[address],[place] UROBILINOGEN 0.2 0.2 - 1.0 EU/dL = mg/dL [facility]-[address],[place] NITRITES NEGATIVE NEGATIVE MG/DL MG-[address],[place] LEUKOCYTES (U) 3+ (LARGE)(A) NEGATIVE MG-[address],[place] URINE SPECIMEN OBTAINED BY CLEAN CATCH PROCEDURE / Unknown 03/19/2023 Yasmin Valenzuela II, MD URINE ORDERABLES Final Result [facility] [address] [place] [address], documented in this encounter Visit Diagnoses Diagnosis Urinary frequency- Primary Cystitis Cystitis, unspecified Renal disorder Unspecified disorder of kidney and ureter Allergic drug rash Dermatitis due to drugs and medicines taken internally Primary hypertension Unspecified essential hypertension Type 2 diabetes mellitus with diabetic neuropathic arthropathy, with long-term current use of insulin ([facility]) Hypercholesteremia Pure hypercholesterolemia documented in this encounter Additional Health Concerns Assessment Noted Time PHQ-9 Depression Total Score: 0 03/08/19 22 9:30 AM PHYSICIST NUCLEAR documented as of this encounter Care Teams Fashion Stylist Relationship Specialty Start Date End Date Yasmin Valenzuela II, MD [address] [place] [address] PCP - General FAMILY PRACTICE 03/09/21 [place] [address] [place] [address] PODIATRY/SURGERY 05/05/22 documented as of this encounter
--- OUTSIDE RECORDS SUMMARY | 2024-03-02 22:22 | XMS_ITS | Encounter Summary ---
Author Organization [facility] Address [address] [place] [address]. [place], [place] [address] [place] [address] Care Team Providers Care Marketing Operations Intern Name Role Phone Colton SILVEIRA MD, Abiodun Rushing Primary Care Provider Victoriano Langston MD Unavailable [phone] Encounter Details Date Type Department Care Team (Latest Contact Info) Description 03/05/2023 Travel Social History Tobacco Use Types Packs/Day Years Used Date Smoking Tobacco: Never Smokeless Tobacco: Never Alcohol Use Standard Drinks/Week Comments Not Currently 0 (1 standard drink = 0.6 oz pur e alcohol) few times per year [facility] Utilities Answer Date Recorded In the past 12 months has e [employer], gas, oil, or water [employer] threatened to shut off services in your [...] Recorded Patient Health Questionnaire-2 Score 1 03/05/2023 [facility] ional [facility] - Occupational [...] in a fpc (including now)? No 03/06/2023 Comments No Sex [...] 3:37 AM EMILEET Sunshine Talamantes RN Active * [...] Date Author Status No 11/10/2022 3:37 AM EMILEET Sunshine Talamantes RN Active documented in this encounter Plan of Treatment Upcoming Encounters Date Type Department Care Team (Late st Contact Info) Description 03/14/2024 11:45 AM CONTACT REPRESENTATIVE Office Visit [facility] [phone] Marvin Mckeon MD [facility] [address] [place] [address] 03/20/2024 11:30 AM CONTACT REPRESENTATIVE Office Visit [facility] Family Medicine - [place] [address] [place] [phone] Abiodun Segura II, MD 100 [place] [address] documented as of this encounter Goals Goal Patient Goal Type Associated Problems Recent Progress Patient-Stated? Author Family - family caregiver with be involved in care transitions and discharge planning Lifestyle No Natty Cheek, RN documented as of this encounter Visit Diagnoses Not on filedocumented in this encounter Additional Health Concerns Assessment Noted Time PHQ-9 Depression Total Score: 0 03/08/19 9:30 AM CONTACT REPRESENTATIVE documented as of this encounter Care Teams Marketing Operations Intern Relationship Specialty Start Date End Date Abiodun Segura II, MD 100 [place] [address] PCP - General FAMILY PRACTICE 03/09/21 [place] [address] [place] [address] PODIATRY/SURGERY 05/05/22 documented as of this encounter
--- OUTSIDE RECORDS SUMMARY | 2024-03-02 22:22 | XMS_ITS | Encounter Summary ---
Author Organization [facility] Address [address] [place] [address]. [place] [address] [place] [address] Care Team Providers Care Ditch Tender Name Role Phone Colton SILVEIRA MD, Abiodun Rushing Primary Care Provider Victoriano Langston MD Unavailable [phone] Encounter Details Date Type Department Care Team (Latest Contact Info) Description 02/28/2023 Travel Social History Tobacco Use Types Packs/Day [...] Recorded Patient Health Questionnaire-2 Score 0 12/13/2022 [facility] - Occupational [...] place to sleep or slept in a long-term (including now)? No 11/10/2022 Comments No Sex [...] st Contact Info) Description 03/14/2024 11:45 AM BARREL LOADER Office Visit [facility] [phone] Marvin Mckeon MD [facility] [address] [place] [address] 03/20/2024 11:30 AM BARREL LOADER Office Visit [facility] Family Medicine - [place] [address] [place] [phone] Abiodun Segura II, MD [address] [place] [address] documented as of this encounter Goals Goal Patient Goal Type Associated Problems Recent Progress Patient-Stated? Author Family - family caregiver with be involved in care transitions and discharge planning Lifestyle No Natty Cheek, RN documented as of this encounter Visit Diagnoses Not on filedocumented in this encounter Additional Health Concerns Assessment Noted Time PHQ-9 Depression Total Score: 0 03/08/19 22 9:30 AM BARREL LOADER documented as of this encounter Care Teams Ditch Tender Relationship Specialty Start Date End Date Abiodun Segura II, MD 100 [place] [address] PCP - General FAMILY PRACTICE 03/09/21 [place] [address] [place] [address] PODIATRY/SURGERY 05/05/22 documented as of this encounter
--- OUTSIDE RECORDS SUMMARY | 2024-03-02 22:22 | XMS_ITS | Encounter Summary ---
Author Organization [facility] Address [address] [place] [address]. [place] [address] [place] [address] Care Team Providers Care Doctor Of Nursing Practice Name Role Phone Colton SILVEIRA MD, Abiodun Rushing Primary Care Provider Victoriano Langston MD Unavailable [phone] Reason for Visit * Reason Onset Date Comments Advice 03/01/2023 Encounter Details Date Type Department Care Team (Late st Contact Info) Description 03/01/2023 Telephone [facility] Family Medicine - [place] 100 [place] [address] Abiodun Segura II, MD 100 [place] [address] Advice Social History Tobacco Use Types Packs/Day Years [...] Recorded Patient Health Questionnaire-2 Score 0 12/13/2022 [facility] - Occupational Stress Questionnaire Answer Date [...] place to sleep or slept in a half-way (including now)? No 11/10/2022 Comments No Sex [...] Author Status No 11/10/2022 3:38 AM EMILEET Susnhine Talamantes RN Active * Do you have [...] documented in this encounter Progress Notes * Renee Wells RN - 03/01/2023 4:26 PM CST FCO BASKET MAKER HELPER * Conchita Mancilla - 03/01/2023 4:21 PM CST Pt called back and I made an appt for her on Sunday 03/05 at 12:[address] Mercado BASKET MAKER HELPER * Sydney Cobos MA - 03/01/2023 2:38 PM CST Please advise/no appointments available BASKET MAKER HELPER * Cristela Pereira - 03/01/2023 1:23 PM CST Patient called and is having urine problems and thinks she has a UTI. No appt was available today and she is wanting to come and give a urine sample to get tested. Please call patient [phone] BASKET MAKER HELPER documented in this encounter Plan of Treatment Upcoming Encounters Date Type Department Care Team (Late st Contact Info) Description 03/14/2024 11:45 AM SLAT BASKET MAKER HELPER Office Visit [facility]-[address] [phone] Marvin Mckeon MD [facility] [address] [place], [place] [phone] 03/20/2024 11:30 AM SLAT BASKET MAKER HELPER Office Visit [facility] Family Medicine - [address] [phone] Abiodun Segura II, MD [address] [place] [address] documented as of this encounter Goals Goal Patient Goal Type Associated Problems Recent Progress Patient-Stated? Author Family - family caregiver with be involved in care transitions and discharge planning Lifestyle Natty Angeles, RN documented as of this encounter Visit Diagnoses Not on filedocumented in this encounter Additional Health Concerns Assessment Noted Time PHQ-9 Depression Total Score: 0 03/08/19 22 9:30 AM SLAT BASKET MAKER HELPER documented as of this encounter Care Teams Doctor Of Nursing Practice Relationship Specialty Start Date End Date Abiodun Segura II, MD [address] [place] [address] PCP - General FAMILY PRACTICE 03/09/21 [place] [address] [place] [address] PODIATRY/SURGERY 05/05/22 documented as of this encounter
--- OUTSIDE RECORDS SUMMARY | 2024-03-02 22:22 | XMS_ITS | Encounter Summary ---
Author Organization [facility] Address [address] [place] [address]. [place] [address] [place] [address] Care Team Providers Care Lean Six Sigma Black Belt Name Role Phone Colton SILVEIRA MD, Abiodun Rushing Primary Care Provider Victoriano Langston MD Unavailable [phone] Reason for Visit * Reason Onset Date Comments Follow Up Call 03/05/2023 Patient [facility] from 03/05-03/09/23 Encounter Details Date Type Department Care Team (Latest Contact Info) Description 03/12/2023 Hospital Follow-up Call [facility] [place] [address] Ryanne Lambert, YINA Follow Up Call (Patient admitted to [facility] from 03/05-03/09/23) Social History Tobacco Use Types Packs/Day Years Used Date Smoking Tobacco: Never Smokeless Tobacco: Never Alcohol Use Standard Drinks/Week Comments Not Currently 0 (1 standard drink = 0.6 oz pur e alcohol) few times per year [facility] Utilities Answer Date Recorded In the past 12 months has e [employer], gas, oil, or water [employer] threatened to shut off services in your [...] Recorded Patient Health Questionnaire-2 Score 1 03/05/2023 [facility] Occupat ional Health [...] st Contact Info) Description 03/14/2024 11:45 AM CLIP ON SUNGLASSES ASSEMBLER Office Visit [facility]-[address] [phone] Marvin Mckeon MD [address] [facility] [address] [place], [place] [phone] 03/20/2024 11:30 AM CLIP ON SUNGLASSES ASSEMBLER Office Visit [facility] Family Medicine - [place] 100 [place] [phone] Abiodun Segura II, MD 100 [place] [address] documented as of this encounter Goals Goal Patient Goal Type Associated Problems Recent Progress Patient-Stated? Author Family - family caregiver with be involved in care transitions and discharge planning Lifestyle No Natty Cheek, RN documented as of this encounter Visit Diagnoses Not on filedocumented in this encounter Additional Health Concerns Assessment Noted Time PHQ-9 Depression Total Score: 0 03/08/19 22 9:30 AM CLIP ON SUNGLASSES ASSEMBLER documented as of this encounter Care Teams Lean Six Sigma Black Belt Relationship Specialty Start Date End Date Abiodun Segura II, MD [address] [place] [phone] PCP - General FAMILY PRACTICE 03/09/21 [place] [address] [place] [address] PODIATRY/SURGERY 05/05/22 documented as of this encounter
--- OUTSIDE RECORDS SUMMARY | 2024-03-02 22:22 | XMS_ITS | Encounter Summary ---
Author Organization [facility] Address [address] [place] [address]. [place] [address] [place] [address] Care Team Providers Care Life Sciences Teacher Name Role Phone Colton SILVEIRA MD, Abiodun Rushing Primary Care Provider Victoriano Langston MD Unavailable [phone] Encounter Details Date Type Department Care Team (Late st Contact Info) Description 08/16/2023 10:27 AM CDT - 08/16/2023 11:59 PM CDT Hospital Encounter [facility] [place], [place] [phone] Abiodun Segura II, MD [address] [place] [address] Discharge Disposition: Home or Self Care (Routine Discharge) Social History Tobacco Use Types Packs/Day Years Used Date Smoking Tobacco: Never Smokeless Tobacco: Never Alcohol Use Standard Drinks/Week Comments Not Currently 0 (1 standard drink = 0.6 oz pur e alcohol) few times per year [facility] Utilities Answer Date Recorded In the past 12 months has th e [employer], gas, oil, or water [employer] threatened to shut off services in your [...] Recorded Patient Health Questionnaire-2 Score 1 03/05/2023 [facility]at ional [facility] - Occupational Stress Questionnaire Answer Date [...] Date Author Status No 03/06/2023 3:39 PM FOAM FABRICATOR Amaya, Teresa K , RN Active documented in this encounter Medications [...] for Muscle Spasms. 60 tablet 5 4 HYDROcodone-acetami nophen (NORCO) 5-325 MG tablet Take 1 tablet by mouth every 4 (four) hours as needed. 4 Insulin Syringe-Needle U-100 (INSULIN SYRINGE 1CC/30GX5/16 ) 30G X 5/16 1 ML MiscIndications:Typ e 2 diabetes mellitus with diabetic neuropathic arthropathy, with long-term current use of insulin ([facility]) Use as directed to inject [...] every 6 (six) hours as needed. 4 triamcinolone (KENALOG) 0.1 % creamIndications:Al lergic drug rash Apply topically 2 (two) times daily. 453.6 g 1 4 fosfomycin (MONUROL) 3 g PackIndications:Acu te cystitis without hematuria Take 3 gm by mouth every other day for 3 doses. 3 each 4 12/02/19 24 Glucose Blood (ACCU-CHEK TAWANNA PLUS) test stripIndications:Ty pe 2 diabetes mellitus with diabetic neuropathic arthropathy, with long-term current use of insulin ([facility] H[facility]/HCC) 1 strip by Other route 2 [...] mL 3 4 01/22/20 24 semaglutide (OZEMPIC) 2 MG/3ML injection (PEN)Indications:Di abetes Mellitus Inject 0.25 mg into the skin every 7 days. Indications: Diabetes 3 mL 5 4 10/29/19 24 documented as of this encounter Progress Notes * Abiodun Segura II, MD - 08/16/2023 10:45 AM CDT Patient called with results. Will start Ozempic as ordered. Follow up as directed. documented in this encounter Plan of Treatment Upcoming Encounters Date Type Department Care Team (Late st Contact Info) Description 03/14/2024 11:45 AM FOAM FABRICATOR Office Visit [facility] [phone] Marvin Mckeon MD Three [facility] [address] [place], [place] [phone] 03/20/2024 11:30 AM FOAM FABRICATOR Office Visit [facility] Family Medicine - [place] 100 [place] [phone] Abiodun Segura II, MD 100 [place], [place] [phone] documented as of this encounter Goals Goal Patient Goal Type Associated Problems Recent Progress Patient-Stated? Author Family - family caregiver with be involved in care transitions and discharge planning Lifestyle No Natty Cheek RN documented as of this encounter Procedures Procedure Name Priority Date/Time Associated Diagnosis Comments HEMOGLOBIN, GLYCOSYLATED Routine 08/16/2023 10:47 AM CDT Type 2 diabetes mellitus with diabetic neuropathic arthropathy, with long-term current use of insulin ([facility]) COMPREHENSIVE METABOLIC PANEL Routine 08/16/2023 10:47 AM CDT Primary hypertension LIPID PANEL Routine 08/16/2023 10:47 AM CDT Hypercholesteremia CBC W/DIFF AUTOMATED Routine 08/16/2023 10:47 AM CDT Primary hypertension URINE BACTERIA CULTURE Routine 08/16/2023 9:50 AM CDT Acute cystitis without hematuria documented in this encounter Results * (ABNORMAL) LIPID PANEL (08/16/2023 10:47 AM CDT) CHOLESTEROL 224(H) <200 MG/DL 08/16/2023 11:58 AM CDT [facility] TRIGLYCERIDES 321(H) <150 MG/DL 08/16/2023 11:58 AM [facility] HDL 48 >40.0 MG/DL 08/16/2023 11:58 AM [facility] LDL (CALCULATED) 112(H) <100 MG/DL 08/16/2023 11:58 AM [facility] NON HDL CHOLESTEROL 176(H) <130 MG/DL 08/16/2023 11:58 AM [facility] CHOL/HDL RATIO 4.7(H) 0.0 - 4.5 08/16/2023 11:58 AM [facility] VLDL CALCULATION 64(H) 5 - 55 MG/DL 08/16/2023 11:58 AM [facility] LIPID INTERPRETATION 08/16/2023 11:58 AM [facility] Comment: NIH CONCENSUS REPORT RECOMMENDATIONS: [...] ?>=130 08/16/2023 10:4 7 AM CDT us Abiodun Segura II, MD LABORATORY Final R esult [facility] [address] [place] [address], * (ABNORMAL) COMPREHENSIVE METABOLIC PANEL (08/16/2023 10:47 AM CDT) GLUCOSE 185(H) 70 - 99 MG/DL 08/16/2023 11:58 AM CDT [facility] BUN 22(H) 7 - 18 MG/DL 08/16/2023 11:58 AM CDT [facility] CREATININE S/P/B 1.11(H) 0.55 - 1.02 MG/DL 08/16/2023 11:58 AM CDT [facility] SODIUM S/P/B 137 136 - 145 MMOL/L 08/16/2023 11:58 AM CDT [facility] POTASSIUM S/P/B 4.2 3.5 - 5.1 MMOL/L 08/16/2023 11:58 AM CDT [facility] CHLORIDE S/P/B 107 100 - 108 MMOL/L 08/16/2023 11:58 AM CDT [facility] CO2 25.2 21 - 32 MMOL/L 08/16/2023 11:58 AM T [facility] CALCIUM S/P/B 9.4 8.5 - 10.1 MG/DL 08/16/2023 11:58 AM T [facility] BILIRUBIN TOTAL S/P/B 0.5 0.2 - 1.2 MG/DL 08/16/2023 11:58 AM T [facility] Comment: THIS ASSAY IS NOT RECOMMENDED FOR PATIENTS UNDERGOING TREATMENT WITH ELTROMBOPAG DUE TO THE POTENTIAL FOR FALSELY ELEVATED RESULTS. TOTAL PROTEIN S/P/B 8.9(H) 6.4 - 8.2 G/DL 08/16/2023 11:58 AM T [facility] ALBUMIN S/P/B 3.3(L) 3.4 - 5.0 G/DL 08/16/2023 11:58 AM T [facility] AST 26 15 - 37 U/L 08/16/2023 11:58 AM T [facility] ALT 39 14 - 55 U/L 08/16/2023 11:58 AM T [facility] ALKALINE PHOSPHATASE S/P/B 181(H) 50 - 136 U/L 08/16/2023 11:58 AM T [facility] ANION GAP 4.8(L) 5 - 15 MMOL/L 08/16/2023 11:58 AM T [facility] BUN CREATININE RATIO 19.8 6 - 26 08/16/2023 11:58 AM T [facility] A/G RATIO 0.6(L) 1.0 - 2.0 RATIO 08/16/2023 11:58 AM [facility] GFR ESTIMATE 60(L) >90 ML/MIN/1.7 3 M2 08/16/2023 11:58 AM CDT [facility] Comment: NOTE: eGFR is not calculated for patients <18 years of age. This is an estimated GFR calculation using the new CKD EPI creatinine equation without race and so does not require a correction factor for race. This estimated GFR should not be used for calculating drug doses. 08/16/2023 10:4 7 AM CDT Abiodun Segura II, MD LABORATORY Final R esult [facility] [address] [place] [address], * (ABNORMAL) CBC W/DIFF AUTOMATED (08/16/2023 10:47 AM CDT) WBC 8.67 4.5 - 11.0 x10'3/uL 08/16/2023 11:29 AM CDT [facility] RBC 4.14(L) 4.20 - 5.40 x10'6/uL 08/16/2023 11:29 AM CDT [facility] HGB 12.4 12.0 - 16.0 G/DL 08/16/2023 11:29 AM CDT [facility] HCT 37.7(L) 38.0 - 48.0 % 08/16/2023 11:29 AM CDT [facility] MCV 91.1 81.0 - 99.0 FL 08/16/2023 11:29 AM CDT [facility] MCH 30.0 27.0 - 31.0 PG 08/16/2023 11:29 AM CDT [facility] MCHC 32.9 32.0 - 36.0 G/DL 08/16/2023 11:29 AM CDT [facility] RDW 13.2 11.5 - 14.5 % 08/16/2023 11:29 AM CDT [facility] PLT 270 130 - 400 x10'3/uL 08/16/2023 11:29 AM CDT [facility] MPV 11.8 9.3 - 12.2 FL 08/16/2023 11:29 AM T [facility] DIFFERENTIAL TYPE AUTOMATED DIFFERENTIAL 08/16/2023 11:29 AM CDT [facility] NEUTROPHILS % 60.5 % 08/16/2023 11:29 AM T [facility] LYMPHOCYTES % 32.8 % 08/16/2023 11:29 AM T [facility] MONOCYTES % 5.1 % 08/16/2023 11:29 AM T [facility] EOSINOPHILS 0.9 % 08/16/2023 11:29 AM T [facility] BASOPHILS 0.5 % 08/16/2023 11:29 AM CDT [facility] IMMATURE GRANS % 0.2 % 08/16/19 11:29 AM T [facility] ABS. NEUTROPHILS 5.25 1.80 - 7.70 x10'3/uL 08/16/2023 11:29 AM CDT [facility] ABS. LYMPHOCYTES 2.84 1.00 - 4.80 x10'3/uL 08/16/2023 11:29 AM CDT [facility] ABS. MONOCYTES 0.44 0.24 - 0.86 x10'3/uL 08/16/2023 11:29 AM T [facility] ABS. EOSINOPHILS 0.08 0.04 - 0.36 x10'3/uL 08/16/2023 11:29 AM CDT [facility] ABS. BASOPHILS 0.04 0.01 - 0.08 x10'3/uL 08/16/2023 11:29 AM CDT [facility] ABS. IMMATURE GRANULOCYTES 0.02 0.00 - 0.49 x10'3/uL 08/16/2023 11:29 AM CDT [facility] 08/16/2023 10:4 7 AM CDT Abiodun Segura II, MD LABORATORY Final R esnas Performing Organization Address City/[facility] Co de Phone Number [facility] [address] [place] [address], [place] [phone] * (ABNORMAL) HEMOGLOBIN, GLYCOSYLATED (08/16/2023 10:47 AM CDT) HGB A1C 11.3(H) <5.7 % 08/16/2023 11:57 AM CDT [facility] Comment: ADA GUIDELINES 2010 5.7 TO 6.4% INCREASED RISK OF DIABETES > OR = 6.5% CONSISTENT WITH DIABETES ESTIMATED AVG GLUCOSE 278 mg/dL 08/16/2023 11:57 AM CDT [facility] 08/16/2023 10:4 7 AM CDT Abiodun Segura II, MD LABORATORY Final R charley Performing Organization Address City/[facility]/ZIP Co de Phone Number [facility] [address] [place] [address], [place] [phone] documented in this encounter Visit Diagnoses Diagnosis Type 2 diabetes mellitus with diabetic neuropathic arthropathy, with long-term current use of insulin ([facility]/HCC) Primary hypertension Unspecified essential hypertension Hypercholesteremia Pure hypercholesterolemia documented in this encounter Additional Health Concerns Assessment Noted Time PHQ-9 Depression Total Score: 0 03/08/19 22 9:30 AM FOAM FABRICATOR documented as of this encounter Care Teams Life Sciences Teacher Relationship Specialty Start Date End Date Abiodun Segura II, MD [address] [place] [address] PCP - General FAMILY PRACTICE 03/09/21 [place] [address] [place] [address] PODIATRY/SURGERY 05/05/22 documented as of this encounter
--- OUTSIDE RECORDS SUMMARY | 2024-03-02 22:22 | XMS_ITS | Encounter Summary ---
Author Organization [facility] Address [address] [place] [address]. [place] [address] [place] [address] Care Team Providers Care Community Service Specialist Name Role Phone Colton SILVEIRA MD, Yasmin Rushing Primary Care Provider Victoriano Langston MD Unavailable [phone] Reason for Visit * Reason Onset Date Comments Refill Request 03/09/2023 Encounter Details Date Type Department Care Team (Late st Contact Info) Description 03/09/2023 Telephone [facility] Family Medicine - [place] [address] [place] [address] Yasmin Valenzuela II, MD [address] [place] [address] Refill Request Social History Tobacco Use Types Packs/Day Years Used Date Smoking Tobacco: Never Smokeless Tobacco: Never Alcohol Use Standard Drinks/Week Comments Not Currently 0 (1 standard drink = 0.6 oz pur e alcohol) few times per year [facility] Utilities Answer Date Recorded In the past 12 months has e [employer], gas, oil, or water [employer] threatened to shut off services in your [...] Questionnaire-2 Score 1 03/05/2023 [facility] Occupat ional Health - Occupational [...] place to sleep or slept in a skilled nursing (including now)? No 03/06/2023 Comments No Sex [...] documented in this encounter Progress Notes * Conchita Mancilla - 03/09/2023 9:50 AM CST Refill request: Lena Mcneal a patient of YASMIN VALENZUELA MD requests a refill of Insulin Syringe-Needle U-100 (INSULIN SYRINGE 1CC/30GX5/16 ) 30G X 5/16 1 ML Misc - 70 in the morning and 60 at bedtime The patient would like this sent to the following pharmacy: [facility] [address] [place] [address] [facility] [address] [place] [address] The next office visit: Next visit with YASMIN VALENZUELA II in FAMILY PRACTICE is on: 05/22/2023 in [facility] The last office visit: Last visit with YASMIN VALENZUELA II in FAMILY PRACTICE was on: 03/05/2023 in [facility] Additional Information: ER BED PLACER documented in this encounter Plan of Treatment Upcoming Encounters Date Type Department Care Team (Late st Contact Info) Description 03/14/2024 11:45 AM FILTER BED PLACER Office Visit [facility] [phone] Marvin Mckeon MD Three [facility] [address] [place] [address] 03/20/2024 11:30 AM FILTER BED PLACER Office Visit [facility] Family Medicine - [place] [address] [place] [phone] Yasmin Valenzuela II, MD [address] [place] [address] documented as of this encounter Goals Goal Patient Goal Type Associated Problems Recent Progress Patient-Stated? Author Family - family caregiver with be involved in care transitions and discharge planning Lifestyle No Natty Cheek, RN documented as of this encounter Visit Diagnoses Diagnosis Type 2 diabetes mellitus with diabetic neuropathic arthropathy, with long-term current use of insulin ([facility]) documented in this encounter Additional Health Concerns Assessment Noted Time PHQ-9 Depression Total Score: 0 03/08/19 22 9:30 AM FILTER BED PLACER documented as of this encounter Care Teams Community Service Specialist Relationship Specialty Start Date End Date Yasmin Valenzuela II, MD [address] [place] [address] PCP - General FAMILY PRACTICE 03/09/21 [place] [address] [place] [address] PODIATRY/SURGERY 05/05/22 documented as of this encounter
--- OUTSIDE RECORDS SUMMARY | 2024-03-02 22:22 | XMS_ITS | Encounter Summary ---
Author Organization [facility] Address [address] [place] [address]. [place] [address] [place] [address] Care Team Providers Care Viscose Department Worker Name Role Phone Colton SILVEIRA MD, Abiodun Rushing Primary Care Provider Victoriano Langston MD Unavailable [phone] Reason for Visit * Reason Onset Date Comments Medication Information 05/28/2023 Encounter Details Date Type Department Care Team (Late st Contact Info) Description 05/28/2023 Telephone [facility] Family Medicine - [place] [address] [place] [address] Abiodun Segura II, MD [address] [place] [address] Medication Information Social History Tobacco Use Types Packs/Day Years Used Date Smoking Tobacco: Never Smokeless Tobacco: Never Alcohol Use Standard Drinks/Week Comments Not Currently 0 (1 standard drink = 0.6 oz pur e alcohol) few times per year [facility] Utilities Answer Date Recorded In the past 12 months has e [employer], gas, oil, or water [employer] threatened to shut off services in your [...] Recorded Patient Health Questionnaire-2 Score 1 03/05/2023 [facility] - Occupational [...] Progress Notes * Sydney Cobos MA - 05/28/2023 4:42 PM CDT Darlene from [facility] called to report that Lena has been discharged and is now off of IV antibiotics but she does need to report a Level 1 pos. Drug interaction with patients Amlodipine and Simvastatin. Any changes she said that we can call the patient documented in this encounter Plan of Treatment Upcoming Encounters Date Type Department Care Team (Late st Contact Info) Description 03/14/2024 11:45 AM FREIGHT SHIPPING AGENT Office Visit [facility] [phone] Marvin Mckeon MD [facility] [address] [place], [place] [id number] 03/20/2024 11:30 AM FREIGHT SHIPPING AGENT Office Visit [facility] Medical Group Family Medicine - [place] [address] [place] [phone] Abiodun Segura II, MD [address] [place], [place] [phone] documented as of this encounter Goals Goal Patient Goal Type Associated Problems Recent Progress Patient-Stated? Author Family - family caregiver with be involved in care transitions and discharge planning Lifestyle No Natty Cheek, RN documented as of this encounter Visit Diagnoses Not on filedocumented in this encounter Additional Health Concerns Assessment Noted Time PHQ-9 Depression Total Score: 0 03/08/19 22 9:30 AM FREIGHT SHIPPING AGENT documented as of this encounter Care Teams Viscose Department Worker Relationship Specialty Start Date End Date Abiodun Segura II, MD [address] [place], [place] [id number] PCP - General FAMILY PRACTICE 03/09/21 [place] [address] [facility] [address] PODIATRY/SURGERY 05/05/22 documented as of this encounter
--- OUTSIDE RECORDS SUMMARY | 2024-03-02 22:22 | XMS_ITS | Encounter Summary ---
Author Organization [facility] Address [address] [place] [address]. [place] [address] [place] [address] Care Team Providers Care Salesforce Business Analyst Name Role Phone Colton SILVEIRA MD, Abiodun Rushing Primary Care Provider Victoriano Langston MD Unavailable [phone] Encounter Details Date Type Department Care Team (Late st Contact Info) Description 01/13/2023 Orders Only [facility] Family Medicine - [place] [address] [place] [address] Abiodun Segura II, MD [address] [place] [address] Social History Tobacco Use Types [...] Recorded Patient Health Questionnaire-2 Score 0 12/13/2022 [facility]at ional Health - Occupational [...] in a skilled nursing (including now)? No 11/10/2022 Comments No Sex [...] AM CDT Sunshine Talamantes RN Active documented as of this encounter Mental Status * Because of a physical, mental, or emotional condition, do you have serious difficulty concentrating, remembering, or making decisions? Answer Entry Date Author Status No 11/10/2022 3:37 AM CDT Sunshine Talamantes RN Active documented in this encounter Progress Notes * Abiodun Segura II, MD - 01/13/2023 10:03 AM CST Signed EACH REPRESENTATIVE documented in this encounter Plan of Treatment Upcoming Encounters Date Type Department Care Team (Late st Contact Info) Description 03/14/2024 11:45 AM OUTREACH REPRESENTATIVE Office Visit [place] [facility] [phone] Marvin Mckeon MD [address] [facility] [address] [place] [address] 03/20/2024 11:30 AM OUTREACH REPRESENTATIVE Office Visit [facility] Family Medicine - [place] [address] [place] [phone] Abiodun Segura II, MD [address] [place] [address] documented as of this encounter Goals Goal Patient Goal Type Associated Problems Recent Progress Patient-Stated? Author Family - family caregiver with be involved in care transitions and discharge planning Lifestyle Natty Angeles, RN documented as of this encounter Visit Diagnoses Not on filedocumented in this encounter Additional Health Concerns Assessment Noted Time PHQ-9 Depression Total Score: 0 03/08/19 9:30 AM OUTREACH REPRESENTATIVE documented as of this encounter Care Teams Salesforce Business Analyst Relationship Specialty Start Date End Date Abiodun Segura II, MD [address] [place] [address] PCP - General FAMILY PRACTICE 03/09/21 [place] [address] [place] [address] PODIATRY/SURGERY 05/05/22 documented as of this encounter
--- OUTSIDE RECORDS SUMMARY | 2024-03-02 22:22 | XMS_ITS | Encounter Summary ---
Author Organization [facility] Address [address] [place] [address]. [place] [address] [place] [address] Care Team Providers Care Meeting/Event Planner Name Role Phone Colton SILVEIRA MD, Abiodun Rushing Primary Care Provider Victoriano Langston MD Unavailable [phone] Encounter Details Date Type Department Care Team (Late st Contact Info) Description 03/01/2023 Orders Only [facility] Family Medicine - [place] [address] [place] [address] Abiodun Segura II, MD [address] [place] [address] Social History Tobacco Use Types [...] place to sleep or slept in a fci (including now)? No 11/10/2022 Comments No Sex [...] st Contact Info) Description 03/14/2024 11:45 AM CEMENT PATCHER Office Visit [place] [facility] [phone] Marvin Mckeon MD [facility] [address] [place] [address] 03/20/2024 11:30 AM CEMENT PATCHER Office Visit [facility] Family Medicine - [place] [address] [place] [address] Abiodun Segura II, MD [address] [place] [address] documented as of this encounter Goals Goal Patient Goal Type Associated Problems Recent Progress Patient-Stated? Author Family - family caregiver with be involved in care transitions and discharge planning Lifestyle No Natty Cheek, RN documented as of this encounter Visit Diagnoses Diagnosis Acute cystitis without hematuria- Primary Acute cystitis documented in this encounter Additional Health Concerns Assessment Noted Time PHQ-9 Depression Total Score: 0 03/08/19 22 9:30 AM CEMENT PATCHER documented as of this encounter Care Teams Meeting/Event Planner Relationship Specialty Start Date End Date Abiodun Segura II, MD [address] [place] [address] PCP - General FAMILY PRACTICE 03/09/21 [place] [address] [place] [address] PODIATRY/SURGERY 05/05/22 documented as of this encounter
--- OUTSIDE RECORDS SUMMARY | 2024-03-02 22:22 | XMS_ITS | Encounter Summary ---
Author Organization [facility] Address [address] [place] [address]. [place], [place] [phone] [place] [address] Care Team Providers Care Granite Worker Name Role Phone Colton SILVEIRA MD, Abiodun Rushing Primary Care Provider Victoriano Langston MD Unavailable [phone] Encounter Details Date Type Department Care Team (Latest Contact Info) Description 03/19/2023 Travel Social History Tobacco Use Types Packs/Day Years Used Date Smoking Tobacco: Never Smokeless Tobacco: Never Alcohol Use Standard Drinks/Week Comments Not Currently 0 (1 standard drink = 0.6 oz pur e alcohol) few times per year [facility] Utilities Answer Date Recorded In the past 12 months has e [employer], gas, oil, or water [employer] threatened to shut off services in your [...] Recorded Patient Health Questionnaire-2 Score 1 03/05/2023 [facility] of Occupat ional Health - Occupational Stress [...] a care home (including now)? No 03/06/2023 Comments No [...] st Contact Info) Description 03/14/2024 11:45 AM DATA ENTRY MANAGER Office Visit [place] [phone] Marvin Mckeon MD [facility] [address] [place] [address] 03/20/2024 11:30 AM DATA ENTRY MANAGER Office Visit [facility] Family Medicine - [place] [address] [place] [phone] Abiodun Segura II, MD [address] [place] [address] documented as of this encounter Goals Goal Patient Goal Type Associated Problems Recent Progress Patient-Stated? Author Family - family caregiver with be involved in care transitions and discharge planning Lifestyle Natty Angeles, RN documented as of this encounter Visit Diagnoses Not on filedocumented in this encounter Additional Health Concerns Assessment Noted Time PHQ-9 Depression Total Score: 0 03/08/19 9:30 AM DATA ENTRY MANAGER documented as of this encounter Care Teams Granite Worker Relationship Specialty Start Date End Date Abiodun Segura II, MD [address] [place] [address] PCP - General FAMILY PRACTICE 03/09/21 [place] [address] [place] [address] PODIATRY/SURGERY 05/05/22 documented as of this encounter
--- OUTSIDE RECORDS SUMMARY | 2024-03-02 22:22 | XMS_ITS | Encounter Summary ---
Author Organization [facility] Address [address] [place] [address]. [place] [address] [place] [address] Care Team Providers Care Freight Car Builder Name Role Phone Colton SILVEIRA MD, Abiodun Rushing Primary Care Provider Victoriano Langston MD Unavailable [phone] Encounter Details Date Type Department Care Team (Latest Contact Info) Description 02/03/2023 Travel Social History Tobacco Use Types Packs/Day [...] Recorded Patient Health Questionnaire-2 Score 0 12/13/2022 [facility] of Occupat ional Health [...] st Contact Info) Description 03/14/2024 11:45 AM LOSS CONTROL CONSULTANT Office Visit [facility] [phone] Marvin Mckeon MD [facility] [address] [place] [address] 03/20/2024 11:30 AM LOSS CONTROL CONSULTANT Office Visit [facility] Family Medicine - [place] [address] [place] [phone] Abiodun Segura II, MD [address] [place] [address] documented as of this encounter Goals Goal Patient Goal Type Associated Problems Recent Progress Patient-Stated? Author Family - family caregiver with be involved in care transitions and discharge planning Lifestyle No Natty Cheek, RN documented as of this encounter Visit Diagnoses Not on filedocumented in this encounter Additional Health Concerns Assessment Noted Time PHQ-9 Depression Total Score: 0 03/08/19 22 9:30 AM LOSS CONTROL CONSULTANT documented as of this encounter Care Teams Freight Car Builder Relationship Specialty Start Date End Date Abiodun Segura II, MD [address] [place] [address] PCP - General FAMILY PRACTICE 03/09/21 [place] [address] [place] [address] PODIATRY/SURGERY 05/05/22 documented as of this encounter
--- OUTSIDE RECORDS SUMMARY | 2024-03-02 22:22 | XMS_ITS | Encounter Summary ---
Author Organization [facility] Address [address] [place] [address]. [place] [address] [place] [address] Care Team Providers Care Dustless Operator Name Role Phone Colton SILVEIRA MD, Abiodun Rushing Primary Care Provider Victoriano Langston MD Unavailable [phone] Reason for Visit * Reason Onset Date Comments Results 08/27/2023 Encounter Details Date Type Department Care Team (Late st Contact Info) Description 08/27/2023 Telephone [facility] Family Medicine - [place] [address] [place] [address] Abiodun Segura II, MD [address] [place] [address] Results Social History Tobacco Use Types Packs/Day Years Used Date Smoking Tobacco: Never Smokeless Tobacco: Never Alcohol Use Standard Drinks/Week Comments Not Currently 0 (1 standard drink = 0.6 oz pur e alcohol) few times per year [facility] Utilities Answer Date Recorded In the past [...] Patient Health Questionnaire-2 Score 1 03/05/2023 [facility] of Occupat ional [facility] - Occupational Stress Questionnaire Answer [...] documented in this encounter Progress Notes * Shawna Fong MA - 08/29/2023 1:28 PM CDT Received a fax from [facility] about patient Fosfomycin medication they need a PA but I called and the insurance paid and a PA is not needed at this time. * Shawna Fong MA - 08/27/2023 10:54 AM CDT Called patient to give her results and wanted to know should finish her medication I said yes. Patient verbally understood the message. * Cate Smith - 08/27/2023 10:11 AM CDT Pt called regarding her urine culture results documented in this encounter Plan of Treatment Upcoming Encounters Date Type Department Care Team (Late st Contact Info) Description 03/14/2024 11:45 AM DIVIDEND DEPOSIT ENTRY CLERK Office Visit [place] [facility] [address] Marvin Mckeon MD Three [facility] [address] [place] [address] 03/20/2024 11:30 AM DIVIDEND DEPOSIT ENTRY CLERK Office Visit [facility] Family Medicine - [place] [address] [place] [phone] Abiodun Segura II, MD [address] [place] [address] documented as of this encounter Goals Goal Patient Goal Type Associated Problems Recent Progress Patient-Stated? Author Family - family caregiver with be involved in care transitions and discharge planning Lifestyle No Natty Cheek, RN documented as of this encounter Visit Diagnoses Not on filedocumented in this encounter Additional Health Concerns Assessment Noted Time PHQ-9 Depression Total Score: 0 03/08/19 22 9:30 AM DIVIDEND DEPOSIT ENTRY CLERK documented as of this encounter Care Teams Dustless Operator Relationship Specialty Start Date End Date Abiodun Segura II, MD [address] [place] [address] PCP - General FAMILY PRACTICE 03/09/21 [place] [address] [place] [address] PODIATRY/SURGERY 05/05/22 documented as of this encounter
--- OUTSIDE RECORDS SUMMARY | 2024-03-02 22:22 | XMS_ITS | Encounter Summary ---
Author Organization [facility] Address [address] [place] [address]. [place], [place] [id number] [place] [id number] Care Team Providers Care Lead Systems Developer Name Role Phone Colton SILVEIRA MD, Yasmin Rushing Primary Care Provider Victoriano Langston MD Unavailable [phone] Reason for Referral * Imaging (Emergency) - New Request Specialty Diagnoses / Procedures Referred By Contac t Referred To Contact RADIOLOGY Procedures CT HEAD WO CON Wanda Langston APRN [address] [place] [address] Phone: tel: fax: Referral ID Status Reason Start Date Expiration Date V isits Requested Visits Authorized [id number] New Request 03/05/2023 03/05/2024 1 1 LABORER * Imaging (Emergency) - New Request Specialty Diagnoses / Procedures Referred By Contac t Referred To Contact RADIOLOGY Procedures CT ABD+PEL W IV CON ONLY Yasmin Tomlin PA-C [address] [place] [id number] Phone: tel: fax: Referral ID Status Reason Start Date Expiration Date V isits Requested Visits Authorized [id number] New Request 03/05/2023 03/05/2024 1 1 LABORER Reason for Visit * Reason Comments Abdominal Pain * Auth/Cert (Routine) Specialty Diagnoses / Procedures Referred By Lyla t Referred To Contact Diagnoses UTI (urinary tract infection) Procedures NONE Referral ID Status Reason Start Date Expiration Date Visits Re quested Visits Authorized [id number] 1 1 Encounter Details Date Type Department Care Team (Late st Contact Info) Description 03/05/2023 1:38 PM PIT LABORER - 03/09/2023 2:00 PM PIT LABORER Hospital Encounter [facility] Med/Surg [address] [place] [address] Janneth Perrin PA [address] [place] [address] Heidi Jolly MD 1 [place], [place] [id number] Mendy Mirza MD 1 [place] [address] [phone] (Work) Ramesh Dexter, DO [address] [phone] Major Edmond MD 1 [place] [address] [phone] (Work) Abdominal Pain Discharge Disposition: Home or Self Care (Routine Discharge) Social History Tobacco Use Types Packs/Day Years Used Date Smoking Tobacco: Never Smokeless Tobacco: Never Tobacco Cessation:Counseling Given: Not Answered Alcohol Use Standard Drinks/Week Comments Not Currently 0 (1 standard drink = 0.6 oz pur e alcohol) few times per year [facility] Utilities Answer Date Recorded In the past 12 months has [employer], gas, oil, or water [employer] threatened to shut off services in your [...] Recorded Patient Health Questionnaire-2 Score 1 03/05[facility]2023 [facility] Questionnaire Answer [...] slept in a fci (including now)? No 03/06/2023 Comments No Sex and Gender Information Value Date Recorded Sex Assigned at Female 12/17/2021 2:07 AM CDT Legal Sex Female 2:58 PM CDT Gender Identity Female 12/17/2021 2:07 AM CDT Sexual Orientation Straight 12/17/2021 2: 07 AM CDT documented as of this encounter Last Filed Vital Signs Vital Sign Reading Time Taken Comments Blood Pressure 128/77 03/09/2023 11:45 AM PIT LABORER Pulse 74 03/09/2023 11:45 AM PIT LABORER Temperature 36.4 ??C (97.5 ??F) 03/09/2023 11:[address] Respiratory Rate 16 03/09/2023 11:45 AM PIT LABORER Oxygen Saturation 99% 03/09/2023 11:45 AM PIT LABORER Inhaled Oxygen Concentration - - Weight 90.3 kg (199 lb) 03/05/2023 1:02 PM PIT LABORER Height 167.6 cm (5' 6 ) 03/05/2023 1:02 PM PIT LABORER Body Mass Index 32.12 03/05/2023 1:02 PM PIT LABORER documented in this encounter Functional Status * Question Answer Date of Assessment Author Status Do you have serious difficulty walking or climbing stairs? Yes 03/06/2023 3:39 PM PIT LABORER Teresa Amaya, RN A ctive * Question Answer Date [...] or making decisions? No 03/06/2023 3:39 PM Teresa Coe RN Active * Because of a physical, mental, or emotional condition, do you have serious difficulty concentrating, remembering, or making decisions? Answer Entry Date Author Status No 03/06/2023 3:39 PM Teresa Coe RN Active documented in this encounter Discharge Summaries * Major Edmond MD - 03/09/2023 2:00 PM CST Images from the original note were not included. Hospitalist Discharge Summary Patient ID: Lena Youngblood. female. 1970. Admit date: 03/05/2023 1:38 PM Discharge date: 03/09/2023 2:00 PM Admitting Physician: Heidi Jolly MD Primary Care Physician: YASMIN SEGURA MD Discharge Physician: MAJOR EDMOND MD Primary Diagnoses: UTI Admission Condition: fair Discharged Condition: Stable Code Status: Full Code Chief Complaint: Chief Complaint Patient presents with Abdominal Pain Reason for hospitalization: as above HPI per admitting provider: Lena Youngblood is a 52-year-old female with past medical history of Arthritis, Charcot foot due to diabetes mellitus (s/p left toe amputation) , Constipation, Hx of COVID-19, Diabetes, Diabetic neuropathy , Gastric ulcer, High cholesterol, Hypertension, Kidney stone, Renal disorder, constipation, blindness of right eye, history of 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 antibiotics as outpatient. Upon my assessment, the patient is alert and oriented x 3. Patient states she began having increased urinary frequency and malodorous urine with right flank pain 2 weeks ago. She was treated with p.o. Cipro. She took the medication as instructed; however despite the antibiotic her symptoms persisted and intensified. She continues to have increased urinary frequency however is only. She feels as if she may be having some urinary retention. Patient reports right flank pain, chills, and malodorousurine. Denies rigors, febrile events, dysuria, and hematuria. Pt reports he has been eating and drinking without difficulty. She has developed diarrhea over the past 2 days. She has had multiple liquid brown stools also malodorous.. Denies n/v, melena, hemtochezia and hematemesis. Pt denies cough, CP, diaphoresis, palpitations, sob, orthopnea, presyncopal or syncopal episiodes. Patient reports she has had time and difficulty finding her words. Patient reports intermittent headaches. She is blind in her right eye which is chronic. Denies dizziness, focal weakness, gait abnormality and falls; however states her LLE has been feeling heavy for the past 4 days. UA completed in ER concerning for persistent UTI. Hospital Course: UTI NO sepsis at this time; failed outpatient treatment CT Abd/Pelvis as noted UA concerning for uti: 500 Urine leukocyte esterase, +2 blood, > 100 Urine WBC Blood Cultures x 2 NGTD IV Ceftriaxone administered in ER-had been continued on the floor Her initial cultures grew out Enterococcus, discussed with pharmacy who recommended change to Augmentin however patient reported with prior rash with amoxicillin. Patient tolerated treatment with Zosyn. Options were discussed with pharmD at length. Patient is a candidate for linezolid on discharge to complete her treatment course. Possible adverse effects were discussed with the patient. Patient agreed to treatment with linezolid. CM c/s and verified coverage and availability. Chronic right hydronephrosis CT Abd/Pelvis revealed: Chronic right hydronephrosis and renal cortical atrophy compatible with chronic obstructive uropathy, grossly stable. Per pt history of recurrent right ureteropelvic junction obstruction secondary to right UPJ stenosis (s/p surgery age 17; stent placement; and temporary right side nephrostomy tube in 2016 or 2017) She reports that nephrectomy was recommended by former surgeon Recommended that patient continue to follow-up with Urology. Multiple nonobstructing calculi bilaterally CT Abd/Pelvis revealed: -Multiple nonobstructing calculi bilaterally. -At least 3 interpolar and upper pole nonobstructive calculi on the right, the largest measuring 3 mm. No evidence of obstructive urolithiasis. -Nonobstructive 3 mm interpolar calculus on the left. Follow-up with Urology as above Diarrhea Multiple liquids stool for 2 days Treated with PO Antibiotics GI panel negative Resolved CKD stage 3 Cr=1.08, Cr=1.11; Cr=1.11 on 02/03/23 Fluctuated but overall stable T2DM c/b CKD3, on plycor operator insulin Continue home regimen A1c=9.1 on 02/03/23 Hypertension Continue home regimen Splenic lesion CT Abd/Pelvis revealed: Calcified granulomas of the spleen, stable. Stable 7 mm low-density lesion of the superior subcapsular splenic, likely incidental. Follow-up as outpatient with PCP Obesity, BMI 32.12 Hypokalemia Repleted Given clinical improvement, and stable vital signs patient was ready for discharge. Return precautions and therapeutic plan were discussed with patient in detail, and she voiced understanding and agreement. All questions were answered and patient was subsequently discharged to home. Discharge Exam: Filed Vitals: 03/08/23 2316 03/09/23 0506 03/09/23 0757 03/09/23 1145 BP: (!) 142/76 124/74 136/79 128/77 Pulse: 74 78 79 74 Resp: Temp: 97.7 ??F (36.5 ??C) 97.3 ??F (36.3 ??C) 97.5 ??F (36.4 ??C) TempSrc: Oral Oral Oral SpO2: 97% 100% 100% 99% Weight: Height: -GENERAL: No acute distress, Well nourished -HEAD: Normocephalic, Atraumatic -EYES: Extraocular movements intact -LUNGS: Effort normal. Clear to auscultation bilaterally, No wheezes, No crackles, No ronchi -NEURO: Awake, alert, oriented, No acute gross neuro deficits Consults: none Significant Diagnostic Studies: Recent Labs Lab 03/05/23 1409 03/06/23 0602 03/07/23 0500 03/09/23 0912 WBC 9.6 9.5 6.4 9.5 RBC 4.15* 3.64* 2.91* 3.85* HGB 12.4 10.7* 8.7* 11.3* HCT 36.4* 32.0* 27.6* 33.9* MCV 87.7 87.9 94.8 88.1 MCH 29.9 29.4 29.9 29.4 MCHC 34.1 33.4 31.5* 33.3 PLT 322 287 197 279 RDW 12.9 13.0 13.2 13.2 MPV 11.3 10.7 10.7 10.7 PERNEU 66.9 55.8 55.2 65.3 PERLYM 27.0 37.1 36.5 27.8 PERMON 4.4 5.0 5.9 4.4 LYMC 2.59 3.51 2.34 2.63 MONOC 0.42 0.47 0.38 0.42 EOSC 0.09 0.14 0.10 0.16 BASOC 0.05 0.04 0.03 0.05 DTYPE AUTOMATED DIFFERENTIAL AUTOMATED DIFFERENTIAL AUTOMATED DIFFERENTIAL AUTOMATED DIFFERENTIAL Recent Labs Lab 03/05/23 14003/06/23 0602 03/07/23 0500 03/09/23 0912 NA 135* 139 141 139 K 4.5 3.9 3.4* 5.0 CL 106 106 115* 108 CO2 27.4 30.0 23.1 27.6 AGAP 1.6* 3.0* 2.9* 3.4* BUN 19* 21* 23* 19* CR 1.08* 1.16* 1.00 1.22* BUNCREATININ 17.6 18.1 23.0 15.6 GLU 222* 174* 86 179* CA 9.3 9.1 7.7* 9.4 TP 9.0* 8.5* 7.1 -- ALB 3.2* 3.1* 2.5* -- TBIL 0.5 0.3 0.2 -- ALKP 171* 154* 129 -- AST 32 18 17 -- ALT 33 27 21 -- No results for input(s): CHOL , TRI , HDL , LDL , HGBA1C , TSH in the last 168 hours. No results for input(s): APTT , INR , PTT in the last 168 hours. No results for input(s): TROP , TROPIWB , CKMB , CPK in the last 168 hours. Recent Labs Lab 03/05/23 1409 LACTICACID 1.1 No results for input(s): PH , PCO2 , PO2 , [id number] , BICARBWB , BASEDEFICIT , BASEEXCESS in [...] URINE GLUCOSE 200 (A) NORMAL MG/DL KETONES (U) NEGATIVE NEGATIVE MG/DL UROBILINOGEN NORMAL NORMAL MG/DL BILIRUBIN (U) NEGATIVE NEGATIVE MG/DL BLOOD (U) NEGATIVE NEGATIVE CULTURE & SENSITIVITY INDICATED? CULTURE IS NOT INDICATED MUCUS RARE /LPF WBC/HPF 1 <6 /HPF RBC/HPF 1 <6 /HPF BACTERIA (U) RARE (A) NONE /HPF SQUAMOUS EPITHELIALS RARE /HPF Radiology Reports : ECG 12 lead Result Date: 03/06/2023 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 LABORER CT HEAD WO CON Result Date: 03/05/2023 EXAMINATION: CT of the head CLINICAL HISTORY: Headaches. Word finding difficulties COMPARISON: HeadCT 01/19/2016 TECHNIQUE: CT examination of the head without contrast was performed with axial images obtained. A dose lowering technique was used for this procedure, which may include, but is not limited to, dose reduction technique, automated exposure control, the use of iterative reconstruction, and ALARA (As Low As Reasonably Achievable) / Image Gently techniques. FINDINGS: Increased attenuation of the intracranial vasculature, likely related to iodinated contrast administration for CT abdomen and pelvis done earlier same day. No large acute hemorrhage or extra-axial collections. Patchy foci of hypodensity suggested in the hemispheric white matter, possibly due to small vessel disease. Old left thalamic lacunar infarct. Intracranial vascular calcifications. No definite CT evidence of acute territorial infarction, though MRI would be more sensitive. Ventricles and extra-axial/subarachnoid spaces are unremarkable. Calvarium unremarkable. Mastoid air cells clear. Minimal mucosal thickening in the paranasal sinuses. Right-sided phthisis bulbi. IMPRESSION: 1. No definite CT evidence of acute intracranial abnormality, as above. 2. 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 Referred By: Interpreted By: Jeromy Leyva MD, 03/05/2023 6:[address] ABD+PEL W IV CON ONLY Result Date: 03/05/2023 EXAMINATION: CT ABDOMEN AND PELVIS WITH CONTRAST EXAM DATE/TIME: 03/05/2023 3:12 PM REASON FOR EXAM: Abdominal pain, acute, nonlocalized COMPARISON: 11/09/2022 TECHNIQUE: Axial imaging of the abdomen and pelvis was obtained in corticomedullary and excretory phase after 100 mL Isovue- 370 was injected. Oral contrast was not administered. Dose lowering technique was used for thisstudy which may include, but is not limited to, dose reduction techniques, automated exposure control, use of iterative reconstruction and ALARA (As low As Reasonably Achievable)/Image Gently techniques. FINDINGS: Abdomen: Adrenal glands: Unremarkable. Kidneys: Chronic right hydronephrosis and renal cortical atrophy compatible with chronic obstructive uropathy, grossly stable. There is urothelialthickening proximally, pyelitis and urinary tract infection is a concern. No definite signs of pyelonephritis. At least 3 interpolar and upper pole nonobstructive calculi on the right, the largest andrew suring 3 mm. No evidence of obstructive urolithiasis. Nonobstructive 3 mm interpolar calculus on the left. Spleen: Calcified granulomas indicate healed granulomatous disease. Stable subcapsular low-density lesion measuring 7 mm superiorly, likely incidental. Nonspecific. Stomach and duodenum: Smallhiatal hernia. Stomach and duodenum otherwise unremarkable. Gallbladder: Partially filled and grossly unremarkable. Pancreas grossly unremarkable. Liver: No evidence of intrahepatic biliary dilatation or mass. Portal vein patent. No mesenteric lymphadenopathy or evidence of small bowel obstruction.No free fluid or free air. No evidence of retroperitoneal lymphadenopathy. No evidence of an abdominal aortic aneurysm. Moderate atherosclerosis. Scattered fecal material and gas throughout the colonwithout evidence of mass or dilatation. Appendix not inflamed. Pelvis: Urinary bladder and rectum are unremarkable. On bone windows, no evidence of suspicious skeletal lesion or acute compression fracture deformity. Limited evaluation of the lower thorax demonstrates no acute abnormality. ===== IMPRESSION:===== 1. Chronic right hydronephrosis and renal cortical atrophy compatible with chronicobstructive uropathy, grossly stable. There is urothelial thickening [...] free air. Appendix normal. 6. Moderate atherosclerosis. Referred By: Interpreted By: Isaías Jones MD, 03/05/2023 3:31 PM XR LUMB SPINE AP+LAT ONLY Result Date: 03/03/2023 Examination: X-ray lumbar spine, 2 views. Exam time: 02/28/2023 3:30 PM Clinical history: 52 yo female with 6 months of worsening low back pain especially with prolonged standing. Please evaluate. Comparison: 09/29/2020 [...] slightly worsened since 2020. Ordered By: YASMIN SEGURA II Interpreted By: Cali Parada MD, 03/03/2023 8:58 AM XR HIP LT 2V Result Date: 03/03/2023 Examination: Left hip, 2 views Exam time: 02/28/2023 Clinical history: 52 YO FEMALE WITH WORSENING LEFT HIP PAIN. PLEASE RULE OUT ARTHRITIC CHANGES. THANKS. Comparison: 12/20/2015 Technique: Frontal and frog-leg views of the left hip were obtained. Findings: No acute fracture. No dislocation. No evidence of bone destruction or erosive arthropathy. Iliopectineal and ilioischial lines are intact. Pelvic phleboliths. Vascular calcification. IMPRESSION: 1. No acute bony abnormality. 2. Vascular calcification. Ordered By: YASMIN SEGURA II Interpreted By: Cali Parada MD,03/03/2023 8:57 AM Discharge Medications: Medication List START taking these medications Morning Afternoon Evening Bedtime As Needed linezolid 600 MG tablet Commonly known as: ZYVOX Take 1 tablet (600 mg total) by mouth 2 (two) times daily for 5 days. Signed by: Dr. Ramesh Dexter, CONTINUE taking these medications Morning Afternoon Evening Bedtime As Needed Accu-Chek Cierra Plus test strip 1 strip by Other route 2 (two) times daily. Use as instructed Signed by: Dr. Yasmin Segura MD Generic drug: Glucose Blood amLODIPine 10 MG tablet Commonly known as: NORVASC Take 1 tablet by mouth once daily Last time this was given: 10 mg on March 08, 2023 8:17 PM Signed by: Dr. Yasmin Segura MD calcium carbonate 500 MG chewable tablet Commonly known as: TUMS Chew 1 tablet (500 mg total) by mouth 2 (two) times daily as needed. Signed by: Dr. Ysabel Perkins MD HumaLOG Mix 75/25 (75-25) 100 UNIT/ML Susp Inject 55-65 Units into the skin see administration instructions. INJECT 65 UNITS SUBCUTANEOUSLY ONCE DAILY IN THE MORNING THEN 55 ONCE DAILY IN THE EVENING You were taking this medication differently than prescribed. Signed by: Dr. Yasmin Segura MD Generic drug: insulin lispro protamine-insulin lispro INSULIN SYRINGE 1CC/30GX5/16 30G X 5/16 1 ML Misc Use as directed to inject insulin twice a day. Signed by: Dr. Yasmin Segura MD lisinopril 20 MG tablet Commonly known as: PRINIVIL Take 1 tablet (20 mg total) by mouth every evening. Indications: hypertension Last time this was given: 20 mg on March 08, 2023 8:17 PM Signed by: Sofy Acevedo MD omeprazole 20 MG capsule Commonly known as: PriLOSEC Take 1 capsule (20 mg total) by mouth daily. ondansetron 4 MG disintegrating tablet Commonly known as: ZOFRAN-ODT Take 1 tablet (4 mg total) by mouth every 6 (six) hours as needed for Nausea. Last time this was given: Ask your nurse or doctor Signed by: Dr. Ysabel Perkins MD oxybutynin 5 MG tablet Commonly known as: DITROPAN Take 1 tablet (5 mg total) by mouth 3 (three) times daily as needed (pain). oxyCODONE-acetaminophen 5-325 MG tablet Commonly known as: Percocet Take 1-2 tablets by mouth every 4 (four) hours as needed for Pain. Indications: Acute Pain < 7 Day Supply Signed by: Dr. Kvng Lewis MD simvastatin 40 MG tablet Commonly known as: ZOCOR TAKE 1 TABLET BY MOUTH AT BEDTIME Signed by: Dr. Yasmin Segura MD STOP taking these medications ciprofloxacin 500 MG tablet Commonly known as: CIPRO Disposition: Home with self care Patient Instructions: Follow-up appointments: PCP, Urology Time Spent on Discharge: Greater than 30 minutes Portions of this note were dictated with [employer] medical dictation software. Misspellings, punctuation errors, omitted words or dictation variances may occur. Signed: MAJOR EDMOND MD LABORER documented in this encounter Discharge Instructions * Attachments The following attachments cannot be sent through Care Everywhere. * Urinary Tract Infection Discharge Instructions, Adult ([place]) * Linezolid, ADULT ([place]) documented in this encounter Medications at Time of Discharge calcium carbonate (TUMS) 500 MG chewable tablet Chew 1 tablet (500 mg total) by mouth 2 (two) times daily as needed. 60 tablet 3 Insulin Syringe-Needle U-100 (INSULIN SYRINGE 1CC/30GX5/16 ) 30G X 5/16 1 ML MiscIndications:Typ e 2 diabetes mellitus with diabetic neuropathic arthropathy, with long-term current use of insulin ([facility] HHS/HCC) Use as directed to inject insulin twice a day. 200 each 3 4 omeprazole (PRILOSEC) 20 MG capsule Take 1 [...] daily 90 tablet 1 3 06/15/19 24 Glucose Blood (ACCU-CHEK CIERRA PLUS) test stripIndications:Ty pe 2 diabetes mellitus with diabetic neuropathic arthropathy, with long-term current use of insulin ([facility] HHS/HCC) 1 strip by Other route 2 (two) times daily. Use as instructed 200 strip 3 3 02/26/19 25 HUMALOG MIX 75/25 (75-25) 100 UNIT/ML SuspensionIndicatio ns:Type 2 diabetes mellitus with retinopathy, with long-term current use of insulin, macular edema presence unspecified, unspecified laterality, unspecified retinopathy severity ([facility] HHS/HCC) Inject 55-65 Units into the skin see administration instructions. INJECT 65 UNITS SUBCUTANEOUSLY ONCE DAILY IN THE MORNING THEN 55 ONCE DAILY IN THE EVENING 40 mL 1 3 05/14/19 24 linezolid (ZYVOX) 600 MG tablet Take 1 tablet (600 mg total) by mouth 2 (two) times daily for 5 days. 10 tablet 4 03/13/19 24 lisinopril (PRINIVIL) 20 MG tabletIndications:h ypertension Take 1 tablet (20 mg total) by mouth every evening. Indications: hypertension 30 tablet 03 3 06/15/19 24 oxyCODONE-acetamino phen (PERCOCET) 5-325 MG tabletIndications:A cute Pain < 7 Day Supply Take 1-2 tablets by mouth every 4 (four) hours as needed for Pain. Indications: Acute Pain < 7 Day Supply 20 tablet 3 08/16/19 24 simvastatin (ZOCOR) 40 MG tabletIndications:H ypercholesteremia [The details of the medication are not available because there are pending changes by a home health clinician.] 90 tablet 3 2 06/15/19 24 documented as of this encounter Progress Notes * Teresa Stout V - 03/09/2023 1:56 PM CST 03/09/23 1356 Forms Reinforcement Important Message from Medicare (Subsequent IMM) Signed Copy delivered LABORER * Jayla Joe RN - 03/09/2023 1:30 PM CST Problem: Discharge Planning Goal: Knowledge of discharge instructions 03/09/2023 1330 by Jayla Joe RN Outcome: Adequate for Discharge 03/09/2023 1300 by Jayla Jeo RN Outcome: Progressing Problem: Pain control/comfort Goal: Promote pain control/comfort 03/09/2023 1330 by Jayla Joe RN Outcome: Adequate for Discharge 03/09/2023 1300 by Jayla Joe RN Outcome: Progressing Problem: Skin integrity, Impaired-wound Goal: Absence of new skin breakdown 03/09/2023 1330 by Jayla Joe RN Outcome: Adequate for Discharge 03/09/2023 1300 by Jayla Joe RN Outcome: Progressing Goal: Evidence of wound healing 03/09/2023 1330 by Jayla Joe RN Outcome: Adequate for Discharge 03/09/2023 1300 by Jayla Joe RN Outcome: Progressing Problem: Skin integrity, Impaired-pressure injury/ulcer Goal: Absence of new skin breakdown 03/09/2023 1330 by Jayla Joe RN Outcome: Adequate for Discharge 03/09/2023 1300 by Jayla Joe RN Outcome: Progressing Goal: Evidence of pressure injury/ulcer healing 03/09/2023 1330 by Jayla Joe RN Outcome: Adequate for Discharge 03/09/2023 1300 by Jayla Joe RN Outcome: Progressing Problem: Skin integrity, at risk Goal: Absence of new skin breakdown 03/09/2023 1330 by Jayla Joe RN Outcome: Adequate for Discharge 03/09/2023 1300 by Jayla Joe RN Outcome: Progressing Problem: Moisture associated skin impairment Goal: Reduce moisture exposure 03/09/2023 1330 by Jayla Joe RN Outcome: Adequate for Discharge 03/09/2023 1300 by Jayla Joe RN Outcome: Progressing Goal: Evidence of wound healing 03/09/2023 1330 by Jayla Joe RN Outcome: Adequate for Discharge 03/09/2023 1300 by Jayla Joe RN Outcome: Progressing Goal: Evidence of pressure injury/ulcer healing 03/09/2023 1330 by Jayla Joe RN Outcome: Adequate for Discharge 03/09/2023 1300 by Jayla Joe RN Outcome: Progressing Goal: Absence of new skin breakdown 03/09/2023 1330 by Jayla Joe RN Outcome: Adequate for Discharge 03/09/2023 1300 by Jayla Joe RN Outcome: Progressing Problem: Reduced risk for falls/injury Goal: Reduced Risk for Falls/Injury 03/09/2023 1330 by Jayla Joe RN Outcome: Adequate for Discharge 03/09/2023 1300 by Jayla Joe RN Outcome: Progressing Goal: Reduced Risk of Confusion (Acute vs Chronic) 03/09/2023 1330 by Jayla Joe RN Outcome: Adequate for Discharge 03/09/2023 1300 by Jayla Joe RN Outcome: Progressing Goal: Reduced Risk of Symptomatic Depression 03/09/2023 1330 by Jayla Joe RN Outcome: Adequate for Discharge 03/09/2023 1300 by Jayla Joe RN Outcome: Progressing Goal: Reduced Risk of Altered Elimination 03/09/2023 1330 by Jayla Joe RN Outcome: Adequate for Discharge 03/09/2023 1300 by Jayla Joe RN Outcome: Progressing Goal: Reduced Risk of Dizziness/Vertigo/Balance 03/09/2023 1330 by Jayla Joe RN Outcome: Adequate for Discharge 03/09/2023 1300 by Jayla Joe RN Outcome: Progressing Goal: Reduced Risk of Polypharmacy 03/09/2023 1330 by Jayla Joe RN Outcome: Adequate for Discharge 03/09/2023 1300 by Jayla Joe RN Outcome: Progressing Problem: Venous Thromboembolism - Risk of Goal: Absence of venous thromboembolism 03/09/2023 1330 by Jayla Joe RN Outcome: Adequate for Discharge 03/09/2023 1300 by Jayla Joe RN Outcome: Progressing LABORER * Jayla Joe RN - 03/09/2023 1:00 PM CST Problem: Discharge Planning Goal: Knowledge of discharge instructions Outcome: Progressing Problem: Pain control/comfort Goal: Promote pain control/comfort Outcome: Progressing Problem: Skin integrity, Impaired-wound Goal: Absence of new skin breakdown Outcome: Progressing Goal: Evidence of wound healing Outcome: Progressing Problem: Skin integrity, Impaired-pressure injury/ulcer Goal: Absence of new skin breakdown Outcome: Progressing Goal: Evidence of pressure injury/ulcer healing Outcome: Progressing Problem: Skin integrity, at risk Goal: Absence of new skin breakdown Outcome: Progressing Problem: Moisture associated skin impairment Goal: Reduce moisture exposure Outcome: Progressing Goal: Evidence of wound healing Outcome: Progressing Goal: Evidence of pressure injury/ulcer healing Outcome: Progressing Goal: Absence of new skin breakdown Outcome: Progressing Problem: Reduced risk for falls/injury Goal: Reduced Risk for Falls/Injury Outcome: Progressing Goal: Reduced Risk of Confusion (Acute vs Chronic) Outcome: Progressing Goal: Reduced Risk of Symptomatic Depression Outcome: Progressing Goal: Reduced Risk of Altered Elimination Outcome: Progressing Goal: Reduced Risk of Dizziness/Vertigo/Balance Outcome: Progressing Goal: Reduced Risk of Polypharmacy Outcome: Progressing Problem: Venous Thromboembolism - Risk of Goal: Absence of venous thromboembolism Outcome: Progressing LABORER * Shana Martinez, INSPECTOR TESTER SORTER - 03/08/2023 3:48 PM CST 03/08 Possible transition to PO Linezolid tomorrow and discharge cw LABORER * Shana Martinez, INSPECTOR TESTER SORTER - 03/08/2023 3:48 PM CST Patient continues on IV Zosyn, possible transition to PO and discharge tomorrow 03/08/23 4703 Interdisciplinary Group Conference Team Members Present Physician;Case/Care management;Nursing;PT/OT;Pharmacy Physician present for group conference Ramesh Dexter Barriers to Discharge Barriers No Barrier- Medical Milestone in Process No Barrier- Medical Milestone in Process follow up Patient continues on IV Zosyn possible transition to PO and discharge tomorrow Patient expects to be discharged to: Home or Self care no new needs LABORER * Jayla Joe RN - 03/08/2023 2:33 PM CST Problem: Discharge Planning Goal: Knowledge of discharge instructions 03/08/2023 1433 by Jayla Joe RN Outcome: Progressing 03/08/2023 1431 by Jayla Joe RN Outcome: Progressing Problem: Pain control/comfort Goal: Promote pain control/comfort 03/08/2023 1433 by Jayla Joe RN Outcome: Progressing 03/08/2023 1431 by Jayla Joe RN Outcome: Progressing Problem: Skin integrity, Impaired-wound Goal: Absence of new skin breakdown 03/08/2023 1433 by Jayla Joe RN Outcome: Progressing 03/08/2023 1431 by Jayla Joe RN Outcome: Progressing Goal: Evidence of wound healing 03/08/2023 1433 by Jayla Joe RN Outcome: Progressing 03/08/2023 1431 by Jayla Joe RN Outcome: Progressing Problem: Skin integrity, Impaired-pressure injury/ulcer Goal: Absence of new skin breakdown 03/08/2023 1433 by Jayla Joe RN Outcome: Progressing 03/08/2023 1431 by Jayla Joe RN Outcome: Progressing Goal: Evidence of pressure injury/ulcer healing 03/08/2023 1433 by Jayla Joe RN Outcome: Progressing 03/08/2023 1431 by Jayla Joe RN Outcome: Progressing Problem: Skin integrity, at risk Goal: Absence of new skin breakdown 03/08/2023 1433 by Jayla Joe RN Outcome: Progressing 03/08/2023 1431 by Jayla Joe RN Outcome: Progressing Problem: Moisture associated skin impairment Goal: Reduce moisture exposure 03/08/2023 1433 by Jayla Joe RN Outcome: Progressing 03/08/2023 1431 by Jayla Joe RN Outcome: Progressing Goal: Evidence of wound healing 03/08/2023 1433 by Jayla Joe RN Outcome: Progressing 03/08/2023 1431 by Jayla Joe RN Outcome: Progressing Goal: Evidence of pressure injury/ulcer healing 03/08/2023 1433 by Jayla Joe RN Outcome: Progressing 03/08/2023 1431 by Jayla Joe RN Outcome: Progressing Goal: Absence of new skin breakdown 03/08/2023 1433 by Jayla Joe RN Outcome: Progressing 03/08/2023 1431 by Jayla Joe RN Outcome: Progressing Problem: Reduced risk for falls/injury Goal: Reduced Risk for Falls/Injury 03/08/2023 1433 by Jayla Joe RN Outcome: Progressing 03/08/2023 1431 by Jayla Joe RN Outcome: Progressing Goal: Reduced Risk of Confusion (Acute vs Chronic) 03/08/2023 1433 by Jayla Joe RN Outcome: Progressing 03/08/2023 1431 by Jayla Joe RN Outcome: Progressing Goal: Reduced Risk of Symptomatic Depression 03/08/2023 1433 by Jayla Joe RN Outcome: Progressing 03/08/2023 1431 by Jayla Joe RN Outcome: Progressing Goal: Reduced Risk of Altered Elimination 03/08/2023 1433 by Jayla Joe RN Outcome: Progressing 03/08/2023 1431 by Jayla Joe RN Outcome: Progressing Goal: Reduced Risk of Dizziness/Vertigo/Balance 03/08/2023 1433 by Jayla Joe RN Outcome: Progressing 03/08/2023 1431 by Jayla Joe RN Outcome: Progressing Goal: Reduced Risk of Polypharmacy 03/08/2023 1433 by Jayla Joe RN Outcome: Progressing 03/08/2023 1431 by Jayla Joe RN Outcome: Progressing Problem: Venous Thromboembolism - Risk of Goal: Absence of venous thromboembolism 03/08/2023 1433 by Jayla Joe RN Outcome: Progressing 03/08/2023 1431 by Jayla Joe RN Outcome: Progressing LABORER * Jayla Joe RN - 03/08/2023 2:31 PM CST Problem: Discharge Planning Goal: Knowledge of discharge instructions Outcome: Progressing Problem: Pain control/comfort Goal: Promote pain control/comfort Outcome: Progressing Problem: Skin integrity, Impaired-wound Goal: Absence of new skin breakdown Outcome: Progressing Goal: Evidence of wound healing Outcome: Progressing Problem: Skin integrity, Impaired-pressure injury/ulcer Goal: Absence of new skin breakdown Outcome: Progressing Goal: Evidence of pressure injury/ulcer healing Outcome: Progressing Problem: Skin integrity, at risk Goal: Absence of new skin breakdown Outcome: Progressing Problem: Moisture associated skin impairment Goal: Reduce moisture exposure Outcome: Progressing Goal: Evidence of wound healing Outcome: Progressing Goal: Evidence of pressure injury/ulcer healing Outcome: Progressing Goal: Absence of new skin breakdown Outcome: Progressing Problem: Reduced risk for falls/injury Goal: Reduced Risk for Falls/Injury Outcome: Progressing Goal: Reduced Risk of Confusion (Acute vs Chronic) Outcome: Progressing Goal: Reduced Risk of Symptomatic Depression Outcome: Progressing Goal: Reduced Risk of Altered Elimination Outcome: Progressing Goal: Reduced Risk of Dizziness/Vertigo/Balance Outcome: Progressing Goal: Reduced Risk of Polypharmacy Outcome: Progressing Problem: Venous Thromboembolism - Risk of Goal: Absence of venous thromboembolism Outcome: Progressing LABORER * Ramesh Dexter DO - 03/08/2023 1:58 PM CST Hospitalist Daily Progress Note Subjective Patient seen and evaluated at bedside earlier this am. Feels better today. On day prior attempted to change patients medications as she notes that she has not been able to tolerate ampicillin or penicillin in the past. She denies any new fevers or chills. Her is on the phone and explained plan of care with both of them. She does not want to go home Objective Filed Vitals: 03/07/23 2349 03/08/23 0445 03/08/23 0739 03/08/23 1202 BP: (!) 164/65 139/69 118/68 118/72 Pulse: 81 83 81 80 Resp: Temp: 98.2 ??F (36.8 ??C) 97.9 ??F (36.6 ??C) TempSrc: Oral Oral SpO2: 97% 100% 100% 100% Weight: Height: Physical Exam: -GENERAL: No acute distress, obese -EYES: Extraocular movements intact -ENT: Neck supple, Septum is midline. -LUNG: Clear to auscultation bilaterally, No wheezes, No crackles -CVS: Regular rate rhythm, S1 and S2 normal -ABDOMEN: Soft, nondistended, Nontender, Bowel sounds observed -BACK: right CVA tenderness -EXT: no lower Ext edema. -NEURO: Alert, awake, oriented x3, No gross neuro deficit Intake/Output 24H Total: Intake/Output Summary (Last 24 hours) at 03/08/2023 1358 Last data filed at 03/08/2023 1200 Gross per 24 hour Intake 580 ml Output 400 ml Net 180 ml Medication amLODIPine 10 mg Oral Nightly at bedtime atorvastatin 20 mg Oral Nightly at bedtime insulin aspart protamine-insulin aspart 60 Units Subcutaneous Daily with supper insulin aspart protamine-insulin aspart 70 Units Subcutaneous Daily with breakfast insulin lispro 0-14 Units Subcutaneous TID AC And insulin lispro 0-7 Units Subcutaneous Nightly at bedtime lisinopril 20 mg Oral QPM pantoprazole EC 20 mg Oral Daily piperacillin-tazobactam 3.375 g Intravenous Q8H acetaminophen, bisacodyl, bisacodyl EC, calcium carbonate, dextrose 10 % bolus, diphenhydrAMINE, glucagon, glucose, HYDROmorphone, naLOXone, phenazopyridine, polyethylene glycol Labs: Recent Labs Lab 03/05/23 1409 03/06/23 0602 03/07/23 0500 WBC 9.6 9.5 6.4 RBC 4.15* 3.64* 2.91* HGB 12.4 10.7* 8.7* HCT 36.4* 32.0* 27.6* MCV 87.7 87.9 94.8 MCH 29.9 29.4 29.9 MCHC 34.1 33.4 31.5* PLT 322 287 197 RDW 12.9 13.0 13.2 MPV 11.3 10.7 10.7 PERNEU 66.9 55.8 55.2 PERLYM 27.0 37.1 36.5 PERMON 4.4 5.0 5.9 LYMC 2.59 3.51 2.34 MONOC 0.42 0.47 0.38 EOSC 0.09 0.14 0.10 BASOC 0.05 0.04 0.03 DTYPE AUTOMATED DIFFERENTIAL AUTOMATED DIFFERENTIAL AUTOMATED DIFFERENTIAL Recent Labs Lab 03/05/23 1409 03/06/23 0602 03/07/23 0500 NA 135* 139 141 K 4.5 3.9 3.4* CL 106 106 115* CO2 27.4 30.0 23.1 AGAP 1.6* 3.0* 2.9* BUN 19* 21* 23* CR 1.08* 1.16* 1.00 BUNCREATININ 17.6 18.1 23.0 GLU 222* 174* 86 CA 9.3 9.1 7.7* TP 9.0* 8.5* 7.1 ALB 3.2* 3.1* 2.5* TBIL 0.5 0.3 0.2 ALKP 171* 154* 129 AST 32 18 17 ALT 33 27 21 No results for input(s): CHOL , TRI , HDL , LDL , HGBA1C , TSH in the last 168 hours. No results for input(s): APTT , INR , PTT in the last 168 hours. No results for input(s): TROP , TROPIWB , CKMB , CPK in the last 168 hours. Recent Labs Lab 03/05/23 1409 LACTICACID 1.1 No results for input(s): PH , PCO2 , PO2 , [id number] , BICARBWB , BASEDEFICIT , BASEEXCESS in [...] URINE GLUCOSE 200 (A) NORMAL MG/DL KETONES (U) NEGATIVE NEGATIVE MG/DL UROBILINOGEN NORMAL NORMAL MG/DL BILIRUBIN (U) NEGATIVE NEGATIVE MG/DL BLOOD (U) NEGATIVE NEGATIVE CULTURE & SENSITIVITY INDICATED? CULTURE IS NOT INDICATED MUCUS RARE /LPF WBC/HPF 1 <6 /HPF RBC/HPF 1 <6 /HPF BACTERIA (U) RARE (A) NONE /HPF SQUAMOUS EPITHELIALS RARE /HPF X-Ray Radiology Results (Last 30 days) 03/05/[address] HEAD WO CON Final result Impression: IMPRESSION: 1. No definite CT evidence of acute intracranial abnormality, as above. 2. 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 Referred By: Interpreted By: Jeromy Leyva MD, 03/05/2023 6:16 PM 03/05/[address] ABD+PEL W IV CON ONLY Final result Impression: IMPRESSION:===== 1. Chronic right hydronephrosis and renal cortical [...] free air. Appendix normal. 6. Moderate atherosclerosis. Referred By: Interpreted By: Isaías Jones MD, 03/05/2023 3:31 PM 02/28/23 1535 XR LUMB SPINE AP+LAT ONLY Final result Impression: IMPRESSION: Degenerative disc disease, most notable at L1-L2 and L5-S1, slightly worsened since 2020. Ordered By: YASMIN SEGURA II Interpreted By: Cali Parada MD, 03/03/2023 8:58 AM 02/28/23 1535 XR HIP LT 2V Final result Impression: IMPRESSION: 1. No acute bony abnormality. 2. Vascular calcification. Ordered By: YASMIN SEGURA II Interpreted By: Cali Parada MD, 03/03/2023 8:57 AM Assessment & Plan: UTI NO sepsis at this time; failed outpatient treatment Medical Floor CT Abd/Pelvis as noted UA concerning for uti: 500 Urine leukocyte esterase, +2 blood, > 100 Urine WBC Blood Cultures x 2 pending IV Ceftriaxone administered in ER-had been continued on the floor Her initial cultures grew out Enterococcus, discussed with pharmacy who recommended change to Augmentin however patient reported with prior rash with ampicillin, as well as penicillin. Declined to beplaced on Augmentin. She was instead placed on Zosyn, final cultures returned again showing sensitivity with ampicillin,resistant to Levaquin, sensitive to Macrobid. Long discussion had with the patient, she is reluctant to take oral medications. Discussed at length with pharmacy, will attempt to see if patient can be sent home on linezolid. For now continue Zosyn while inpatient Chronic right hydronephrosis CT Abd/Pelvis revealed: Chronic right hydronephrosis and renal cortical atrophy compatible with chronic obstructive uropathy, grossly stable. 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 Multiple nonobstructing calculi bilaterally CT Abd/Pelvis revealed: -Multiple nonobstructing calculi bilaterally. -At least 3 interpolar and upper pole nonobstructive calculi on the right, the largest measuring 3 mm. No evidence of obstructive urolithiasis. -Nonobstructive 3 mm interpolar calculus on the left. Strain all urine Continue to monitor carefully and consider urology consult pending clinical evolution Creatinine 1.16, continue IV fluids for another day Recommend outpatient follow-up with ultrasound. Diarrhea Multiple liquids stool for 2 days Treated with PO Antibiotics GI panel negative Pt takes Linzess; if diarrhea persists despite stopping Linzess-Cdiff negative Resolved CKD stage 3 Cr=1.08, Cr=1.11; Cr=1.11 on 02/03/23 IV fluids administered in ER Avoid nephrotoxic agents and hypoperfusion Continue to monitor Creatinine 1.16 on 03/06 today 1.00 Can discontinue IV fluids at this time Diabetes Mellitus Continue home Lantus ACHS blood glucose monitoring ACHS sliding scale insulin Hypoglycemic protocol A1c=9.1 on 02/03/23 Hypertension Continue home BP medication Adjust BP meds based of of BP trend. Splenic lesion CT Abd/Pelvis revealed: Calcified granulomas of the spleen, stable. Stable 7 mm low-density lesion of the superior subcapsular splenic, likely incidental. Follow-up as outpatient Stable co morbidities contributing to high complexity of care Anxiety, Arthritis, Charcot foot due to diabetes mellitus , Constipation, Hx of COVID-19, Diabetic neuropathy, Gastric ulcer, High cholesterol, Kidney stone, Renal disorder, UTI (urinary tract infection), and Vision decreased. - DVT prophylaxis: SCDs FULL CODE Disposition: Continue with IV Zosyn for now, discussed amlodipine with pharmacy, as well as patientand her . Possible transition to linezolid if patient's insurance will cover. RAMESH DEXTER DO 03/08/2023 1:58 PM LABORER * Shana Martinez INSPECTOR TESTER SORTER - 03/07/2023 3:53 PM CST 03/07 Awaiting final culture results cw LABORER * Shana Martinez INSPECTOR TESTER SORTER - 03/07/2023 3:53 PM CST Awaiting final culture results 03/07/23 1552 Interdisciplinary Group Conference Team Members Present Physician;Case/Care management;Nursing;PT/OT;Pharmacy Physician present for group conference Ramesh Dexter Barriers to Discharge Barriers No Barrier- Medical Milestone in Process No Barrier- Medical Milestone in Process follow up Awaiting final culture results Patient expects to be discharged to: Home or Self care no new needs LABORER * Jayla Joe RN - 03/07/2023 1:49 PM CST Problem: Discharge Planning Goal: Knowledge of discharge instructions Outcome: Progressing Problem: Pain control/comfort Goal: Promote pain control/comfort Outcome: Progressing Problem: Skin integrity, Impaired-wound Goal: Absence of new skin breakdown Outcome: Progressing Goal: Evidence of wound healing Outcome: Progressing Problem: Skin integrity, Impaired-pressure injury/ulcer Goal: Absence of new skin breakdown Outcome: Progressing Goal: Evidence of pressure injury/ulcer healing Outcome: Progressing Problem: Skin integrity, at risk Goal: Absence of new skin breakdown Outcome: Progressing Problem: Moisture associated skin impairment Goal: Reduce moisture exposure Outcome: Progressing Goal: Evidence of wound healing Outcome: Progressing Goal: Evidence of pressure injury/ulcer healing Outcome: Progressing Goal: Absence of new skin breakdown Outcome: Progressing Problem: Reduced risk for falls/injury Goal: Reduced Risk for Falls/Injury Outcome: Progressing Goal: Reduced Risk of Confusion (Acute vs Chronic) Outcome: Progressing Goal: Reduced Risk of Symptomatic Depression Outcome: Progressing Goal: Reduced Risk of Altered Elimination Outcome: Progressing Goal: Reduced Risk of Dizziness/Vertigo/Balance Outcome: Progressing Goal: Reduced Risk of Polypharmacy Outcome: Progressing Problem: Venous Thromboembolism - Risk of Goal: Absence of venous thromboembolism Outcome: Progressing LABORER * Ramesh Dexter DO - 03/07/2023 1:17 PM CST Hospitalist Daily Progress Note Subjective Patient seen and evaluated at bedside earlier this am. She reports that she still does not feel herself. She continues to note right sided flank plan but denies pain at the end of urination today. She denies fevers or chills but as noted that she does not feel well overall. Objective Filed Vitals: 03/07/23 0013 03/07/23 0428 03/07/23 0802 03/07/23 1221 BP: 120/58 (!) 145/60 111/67 131/67 Pulse: 74 90 83 86 Resp: 18 18 Temp: 98.1 ??F (36.7 ??C) 98.1 ??F (36.7 ??C) 97.7 ??F (36.5 ??C) 98.1 ??F (36.7 ??C) TempSrc: Oral Oral SpO2: 98% 100% 100% 100% Weight: Height: Physical Exam: -GENERAL: No acute distress, obese -EYES: Extraocular movements intact -ENT: Neck supple, Septum is midline. -LUNG: Clear to auscultation bilaterally, No wheezes, No crackles -CVS: Regular rate rhythm, S1 and S2 normal -ABDOMEN: Soft, nondistended, Nontender, Bowel sounds observed -BACK: Currently no CVA tenderness -EXT: no lower Ext edema. -NEURO: Alert, awake, oriented x3, No gross neuro deficit Intake/Output 24H Total: Intake/Output Summary (Last 24 hours) at 03/07/2023 1317 Last data filed at 03/07/2023 0800 Gross per 24 hour Intake 420 ml Output 300 ml Net 120 ml Medication amLODIPine 10 mg Oral Nightly at bedtime amoxicillin-clavulanate 875 mg Oral BID atorvastatin 20 mg Oral Nightly at bedtime insulin aspart protamine-insulin aspart 60 Units Subcutaneous Daily with supper insulin aspart protamine-insulin aspart 70 Units Subcutaneous Daily with breakfast insulin lispro 0-14 Units Subcutaneous TID AC And insulin lispro 0-7 Units Subcutaneous Nightly at bedtime lisinopril 20 mg Oral QPM pantoprazole EC 20 mg Oral Daily acetaminophen, bisacodyl, bisacodyl EC, calcium carbonate, dextrose 10 % bolus, diphenhydrAMINE, glucagon, glucose, HYDROmorphone, naLOXone, phenazopyridine, polyethylene glycol Labs: Recent Labs Lab 03/05/23 1409 03/06/23 0602 03/07/23 0500 WBC 9.6 9.5 6.4 RBC 4.15* 3.64* 2.91* HGB 12.4 10.7* 8.7* HCT 36.4* 32.0* 27.6* MCV 87.7 87.9 94.8 MCH 29.9 29.4 29.9 MCHC 34.1 33.4 31.5* PLT 322 287 197 RDW 12.9 13.0 13.2 MPV 11.3 10.7 10.7 PERNEU 66.9 55.8 55.2 PERLYM 27.0 37.1 36.5 PERMON 4.4 5.0 5.9 LYMC 2.59 3.51 2.34 MONOC 0.42 0.47 0.38 EOSC 0.09 0.14 0.10 BASOC 0.05 0.04 0.03 DTYPE AUTOMATED DIFFERENTIAL AUTOMATED DIFFERENTIAL AUTOMATED DIFFERENTIAL Recent Labs Lab 03/05/23 1409 03/06/23 0602 03/07/23 0500 NA 135* 139 141 K 4.5 3.9 3.4* CL 106 106 115* CO2 27.4 30.0 23.1 AGAP 1.6* 3.0* 2.9* BUN 19* 21* 23* CR 1.08* 1.16* 1.00 BUNCREATININ 17.6 18.1 23.0 GLU 222* 174* 86 CA 9.3 9.1 7.7* TP 9.0* 8.5* 7.1 ALB 3.2* 3.1* 2.5* TBIL 0.5 0.3 0.2 ALKP 171* 154* 129 AST 32 18 17 ALT 33 27 21 No results for input(s): CHOL , TRI , HDL , LDL , HGBA1C , TSH in the last 168 hours. No results for input(s): APTT , INR , PTT in the last 168 hours. No results for input(s): TROP , TROPIWB , CKMB , CPK in the last 168 hours. Recent Labs Lab 03/05/23 1409 LACTICACID 1.1 No results for input(s): PH , PCO2 , PO2 , [id number] , BICARBWB , BASEDEFICIT , BASEEXCESS in [...] URINE GLUCOSE 200 (A) NORMAL MG/DL KETONES (U) NEGATIVE NEGATIVE MG/DL UROBILINOGEN NORMAL NORMAL MG/DL BILIRUBIN (U) NEGATIVE NEGATIVE MG/DL BLOOD (U) NEGATIVE NEGATIVE CULTURE & SENSITIVITY INDICATED? CULTURE IS NOT INDICATED MUCUS RARE /LPF WBC/HPF 1 <6 /HPF RBC/HPF 1 <6 /HPF BACTERIA (U) RARE (A) NONE /HPF SQUAMOUS EPITHELIALS RARE /HPF X-Ray Radiology Results (Last 30 days) 03/05/[address] HEAD WO CON Final result Impression: IMPRESSION: 1. No definite CT evidence of acute intracranial abnormality, as above. 2. 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 Referred By: Interpreted By: Jeromy Leyva MD, 03/05/2023 6:16 PM 03/05/[address] ABD+PEL W IV CON ONLY Final result Impression: IMPRESSION:===== 1. Chronic right hydronephrosis and renal cortical [...] free air. Appendix normal. 6. Moderate atherosclerosis. Referred By: Interpreted By: Isaías Jones MD, 03/05/2023 3:31 PM 02/28/23 1535 XR LUMB SPINE AP+LAT ONLY Final result Impression: IMPRESSION: Degenerative disc disease, most notable at L1-L2 and L5-S1, slightly worsened since 2020. Ordered By: YASMIN SEGURA II Interpreted By: Cali Parada MD, 03/03/2023 8:58 AM 02/28/23 1535 XR HIP LT 2V Final result Impression: IMPRESSION: 1. No acute bony abnormality. 2. Vascular calcification. Ordered By: YASMIN SEGURA II Interpreted By: Cali Parada MD, 03/03/2023 8:57 AM Assessment & Plan: UTI NO sepsis at this time; failed outpatient treatment Medical Floor CT Abd/Pelvis as above UA concerning for uti: 500 Urine leukocyte esterase, +2 blood, > 100 Urine WBC Blood Cultures x 2 pending IV Ceftriaxone administered in ER-had been continued on the floor Her initial cultures grew out Enterococcus, discussed with pharmacy will change her antibiotics to Augmentin which should cover Enterococcus Monitor for 1 more day. Continue with pain management as needed Chronic right hydronephrosis CT Abd/Pelvis revealed: Chronic right hydronephrosis and renal cortical atrophy compatible with chronic obstructive uropathy, grossly stable. 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 Multiple nonobstructing calculi bilaterally CT Abd/Pelvis revealed: -Multiple nonobstructing calculi bilaterally. -At least 3 interpolar and upper pole nonobstructive calculi on the right, the largest measuring 3 mm. No evidence of obstructive urolithiasis. -Nonobstructive 3 mm interpolar calculus on the left. Strain all urine Continue to monitor carefully and consider urology consult pending clinical evolution Creatinine 1.16, continue IV fluids for another day Consider ultrasound bladder renal system if worsens Diarrhea Multiple liquids stool for past 2 days Treated with PO Antibiotics GI panel negative Pt takes Linzess; if diarrhea persists despite stopping Linzess-Cdiff negative Continue to monitor CKD stage 3 Cr=1.08, Cr=1.11; Cr=1.11 on 02/03/23 IV fluids administered in ER Avoid nephrotoxic agents and hypoperfusion Continue to monitor Creatinine 1.16 on 03/06 today 1.00 Can discontinue IV fluids at this time Diabetes Mellitus Continue home Lantus ACHS blood glucose monitoring ACHS sliding scale insulin Hypoglycemic protocol A1c=9.1 on 02/03/23 Hypertension Continue home BP medication Adjust BP meds based of of BP trend. Splenic lesion CT Abd/Pelvis revealed: Calcified granulomas of the spleen, stable. Stable 7 mm low-density lesion of the superior subcapsular splenic, likely incidental. Follow-up as outpatient Stable co morbidities contributing to high complexity of care Anxiety, Arthritis, Charcot foot due to diabetes mellitus , Constipation, Hx of COVID-19, Diabetic neuropathy, Gastric ulcer, High cholesterol, Kidney stone, Renal disorder, UTI (urinary tract infection), and Vision decreased. - DVT prophylaxis: SCDs FULL CODE Disposition: currently awaiting final cultures. Positive for enterococcus, will change abx to augmentin per pharmacy recs. Adjust as needed. Cont on iv fluids for now. Plan to d/c home in am as long as patient tolerates abx and has clinical improvement. Other changes to plan of care to be made based on progress during hospitalization. All plans discussed with RN and patient. They are agreeable with plan and voiced understanding. RAMESH DEXTER DO 03/07/2023 1:17 PM LABORER * Ana Aleman RN - 03/06/2023 7:58 PM CST Problem: Discharge Planning Goal: Knowledge of discharge instructions Outcome: Progressing Problem: Pain control/comfort Goal: Promote pain control/comfort Outcome: Progressing Problem: Skin integrity, Impaired-wound Goal: Absence of new skin breakdown Outcome: Progressing Goal: Evidence of wound healing Outcome: Progressing Problem: Skin integrity, Impaired-pressure injury/ulcer Goal: Absence of new skin breakdown Outcome: Progressing Goal: Evidence of pressure injury/ulcer healing Outcome: Progressing Problem: Skin integrity, at risk Goal: Absence of new skin breakdown Outcome: Progressing Problem: Moisture associated skin impairment Goal: Reduce moisture exposure Outcome: Progressing Goal: Evidence of wound healing Outcome: Progressing Goal: Evidence of pressure injury/ulcer healing Outcome: Progressing Goal: Absence of new skin breakdown Outcome: Progressing Problem: Reduced risk for falls/injury Goal: Reduced Risk for Falls/Injury Outcome: Progressing Goal: Reduced Risk of Confusion (Acute vs Chronic) Outcome: Progressing Goal: Reduced Risk of Symptomatic Depression Outcome: Progressing Goal: Reduced Risk of Altered Elimination Outcome: Progressing Goal: Reduced Risk of Dizziness/Vertigo/Balance Outcome: Progressing Goal: Reduced Risk of Polypharmacy Outcome: Progressing LABORER * Laura Keller RN - 03/06/2023 2:58 PM CST NCM performed bedside interview, verified patient's name and : Support: Lives with daughter Home: home with daughter Ambulation: Reports independent prior to admission. DME products: walker, wheelchair Medical Devices: None ADLs: Reports independent prior to admission. Transport Home: family/friend Skin/Bladder/Bowel: No deficits reported A/O: Patient is alert, oriented to person, place, time, and situation Communication: Patient can communicate without deficits. Home Health: None Occupation: Retired Pharmacy: [facility] Financial Concerns: No financial concerns reported PCP/Insurance Plan: Dr. Segura/[facility] Discharge needs: RNCM will follow case daily and will continuously evaluate discharge needs based on recommendations and treatment course. 03/06/23 145 Referral Data Source of Information Patient Patient Information Primary Caregiver Self Current living Situation Children Type of Residence Private residence Support System Immediate family Are you employed? Retired Baseline ADL's Active DME Wheelchair;Walker Behavior Oriented;Cooperative Communication Talks;Understands speaking;Understands [place] DC screening tool This is a screening tool it does not take the place of a physical or occupational therapy evaluation. The screening is to screen the patient for what services and destination would be beneficial for patient for next level of care Conversation with the patient/family Will the patient be returning to prior living situation with no new identified needs? Yes Based on the screening the DC plan for consideration is: Patient expects to be discharged to: Home or Self care no new needs Adequate Resources Available Adequate Resources Yes [place] Only - Criminal Background check [place] only - Is patient going to jail? No LABORER * Mendy Mirza MD - 03/06/2023 1:22 PM CST Hospitalist Daily Progress Note Subjective Patient seen and evaluated earlier this morning. Patient still notes pain at the end of urination still. She denies any chest pain shortness of breath nausea vomiting abdominal pain fevers or chills currently however. Objective Filed Vitals: 03/05/23 2200 03/06/23 0041 03/06/23 0555 03/06/23 0755 BP: (!) 153/113 115/79 (!) 142/72 115/65 Pulse: 91 83 80 76 Resp: 18 16 Temp: 98.9 ??F (37.2 ??C) 98.4 ??F (36.9 ??C) TempSrc: Oral Temporal SpO2: 100% 100% 100% 97% Weight: Height: Physical Exam: -GENERAL: No acute distress, breathing comfortably on room air. -EYES: Extraocular movements intact -ENT: Neck supple, Septum is midline. -LUNG: Clear to auscultation bilaterally, No wheezes, No crackles -CVS: Regular rate rhythm, S1 and S2 normal -ABDOMEN: Soft, nondistended, Nontender, Bowel sounds observed -BACK: Currently no CVA tenderness -EXT: no lower Ext edema. -NEURO: Alert, awake, oriented x3, No gross neuro deficit Intake/Output 24H Total: No intake or output data in the 24 hours ending 03/06/23 1322 Medication amLODIPine 10 mg Oral Nightly at bedtime atorvastatin 20 mg Oral Nightly at bedtime cefTRIAXone 1 g Intravenous Q24H insulin aspart protamine-insulin aspart 60 Units Subcutaneous Daily with supper insulin aspart protamine-insulin aspart 70 Units Subcutaneous Daily with breakfast insulin lispro 0-14 Units Subcutaneous TID AC And insulin lispro 0-7 Units Subcutaneous Nightly at bedtime lisinopril 20 mg Oral QPM pantoprazole EC 20 mg Oral Daily acetaminophen, bisacodyl, bisacodyl EC, calcium carbonate, dextrose 10 % bolus, glucagon, glucose, HYDROmorphone, naLOXone, phenazopyridine, polyethylene glycol Labs: Recent Labs Lab 03/05/23 1409 03/06/23 0602 WBC 9.6 9.5 RBC 4.15* 3.64* HGB 12.4 10.7* HCT 36.4* 32.0* MCV 87.7 87.9 MCH 29.9 29.4 MCHC 34.1 33.4 PLT 322 287 RDW 12.9 13.0 MPV 11.3 10.7 PERNEU 66.9 55.8 PERLYM 27.0 37.1 PERMON 4.4 5.0 LYMC 2.59 3.51 MONOC 0.42 0.47 EOSC 0.09 0.14 BASOC 0.05 0.04 DTYPE AUTOMATED DIFFERENTIAL AUTOMATED DIFFERENTIAL Recent Labs Lab 03/05/23 1409 03/06/23 0602 NA 135* 139 K 4.5 3.9 CL 106 106 CO2 27.4 30.0 AGAP 1.6* 3.0* BUN 19* 21* CR 1.08* 1.16* BUNCREATININ 17.6 18.1 GLU 222* 174* CA 9.3 9.1 TP 9.0* 8.5* ALB 3.2* 3.1* TBIL 0.5 0.3 ALKP 171* 154* AST 32 18 ALT 33 27 No results for input(s): CHOL , TRI , HDL , LDL , HGBA1C , TSH in the last 168 hours. No results for input(s): APTT , INR , PTT in the last 168 hours. No results for input(s): TROP , TROPIWB , CKMB , CPK in the last 168 hours. Recent Labs Lab 03/05/23 1409 LACTICACID 1.1 No results for input(s): PH , PCO2 , PO2 , [id number] , BICARBWB , BASEDEFICIT , BASEEXCESS in [...] URINE GLUCOSE 200 (A) NORMAL MG/DL KETONES (U) NEGATIVE NEGATIVE MG/DL UROBILINOGEN NORMAL NORMAL MG/DL BILIRUBIN (U) NEGATIVE NEGATIVE MG/DL BLOOD (U) NEGATIVE NEGATIVE CULTURE & SENSITIVITY INDICATED? CULTURE IS NOT INDICATED MUCUS RARE /LPF WBC/HPF 1 <6 /HPF RBC/HPF 1 <6 /HPF BACTERIA (U) RARE (A) NONE /HPF SQUAMOUS EPITHELIALS RARE /HPF X-Ray Radiology Results (Last 30 days) 03/05/[address] HEAD WO CON Final result Impression: IMPRESSION: 1. No definite CT evidence of acute intracranial abnormality, as above. 2. 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 Referred By: Interpreted By: Jeromy Leyva MD, 03/05/2023 6:16 PM 03/05/[address] ABD+PEL W IV CON ONLY Final result Impression: IMPRESSION:===== 1. Chronic right hydronephrosis and renal cortical [...] free air. Appendix normal. 6. Moderate atherosclerosis. Referred By: Interpreted By: Isaías Jones MD, 03/05/2023 3:31 PM 02/28/23 1535 XR LUMB SPINE AP+LAT ONLY Final result Impression: IMPRESSION: Degenerative disc disease, most notable at L1-L2 and L5-S1, slightly worsened since 2020. Ordered By: YASMIN SEGURA II Interpreted By: Cali Parada MD, 03/03/2023 8:58 AM 02/28/23 1535 XR HIP LT 2V Final result Impression: IMPRESSION: 1. No acute bony abnormality. 2. Vascular calcification. Ordered By: YASMIN SEGURA II Interpreted By: Cali Parada MD, 03/03/2023 8:57 AM Assessment & Plan: UTI NO sepsis at this time; failed outpatient treatment Medical Floor CT Abd/Pelvis as above UA concerning for uti: 500 Urine leukocyte esterase, +2 blood, > 100 Urine WBC Blood Cultures x 2 pending IV Ceftriaxone administered in ER-continue for now Monitor the evolution of urine C & S, pending Pain management- Monitor for toxicity Pt with difficulty with words findings- suspect secondary to underlying infection; CT Head negativefor acute intracranial abnormality but did show old stroke Chronic right hydronephrosis CT Abd/Pelvis revealed: Chronic right hydronephrosis and renal cortical atrophy compatible with chronic obstructive uropathy, grossly stable. 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 -At least 3 interpolar and upper pole nonobstructive calculi on the right, the largest measuring 3 mm. No evidence of obstructive urolithiasis. -Nonobstructive 3 mm interpolar calculus on the left. Strain all urine Continue to monitor carefully and consider urology consult pending clinical evolution Creatinine 1.16, continue IV fluids for another day Consider ultrasound bladder renal system Diarrhea Multiple liquids stool for past 2 days Treated with PO Antibiotics Check gi panel Pt takes Linzess; if diarrhea persists despite stopping Linzess-check for Cdiff Continue to monitor CKD stage 3 Cr=1.08, Cr=1.11; Cr=1.11 on 02/03/23 IV fluids administered in ER Avoid nephrotoxic agents and hypoperfusion Continue to monitor Creatinine 1.16, continue IV fluids for another day Diabetes Mellitus Continue home Lantus ACHS blood glucose monitoring ACHS sliding scale insulin Hypoglycemic protocol A1c=9.1 on 02/03/23 Hypertension Continue home BP medication Monitor BP and titrate if indicated Splenic lesion CT Abd/Pelvis revealed: Calcified granulomas of the spleen, stable. Stable 7 mm low-density lesion of the superior subcapsular splenic, likely incidental. Follow-up as outpatient Stable co morbidities contributing to high complexity of care Anxiety, Arthritis, Charcot foot due to diabetes mellitus , Constipation, Hx of COVID-19, Diabetic neuropathy, Gastric ulcer, High cholesterol, Kidney stone, Renal disorder, UTI (urinary tract infection), and Vision decreased. - DVT prophylaxis: SCDs FULL CODE Disposition: Await culture results, continue IV Rocephin, IV fluids for 1 more day. Watch creatinine level. Consult urology as Other changes to plan of care to be made based on progress during hospitalization. All plans discussed with RN and patient. They are agreeable with plan and voiced understanding. This note was dictated with [employer] medical dictation software; misspellings, punctuation errors, omitted words or dictation variances may occur. Mendy Mirza MD 03/06/2023 1:22 PM LABORER documented in this encounter H&P Notes * Wanda Langston APRN - 03/05/2023 4:56 PM CST ATTENDING: WANDA LANGSTON APRN PRIMARY CARE PROVIDER: YASMIN SEGURA MD CC: right flank pain, chills, urinary symtpoms HPI: Patient seen and evaluated by this provider. History obtained via chart review, discussion with patient, and review of outside records from Care everywhere. Lena Youngblood is a 52-year-old female with past medical history of Arthritis, Charcot foot due to diabetes mellitus (s/p left toe amputation) , Constipation, Hx of COVID-19, Diabetes, Diabetic neuropathy , Gastric ulcer, High cholesterol, Hypertension, Kidney stone, Renal disorder, constipation, blindness of right eye, history of 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 antibiotics as outpatient. Upon my assessment, the patient is alert and oriented x 3. Patient states she began having increased urinary frequency and malodorous urine with right flank pain 2 weeks ago. She was treated with p.o. Cipro. She took the medication as instructed; however despite the antibiotic her symptoms persisted and intensified. She continues to have increased urinary frequency however is only. She feels as if she may be having some urinary retention. Patient reports right flank pain, chills, and malodorousurine. Denies rigors, febrile events, dysuria, and hematuria. Pt reports he has been eating and drinking without difficulty. She has developed diarrhea over the past 2 days. She has had multiple liquid brown stools also malodorous.. Denies n/v, melena, hemtochezia and hematemesis. Pt denies cough, CP, diaphoresis, palpitations, sob, orthopnea, presyncopal or syncopal episiodes. Patient reports she has had time and difficulty finding her words. Patient reports intermittent headaches. She is blind in her right eye which is chronic. Denies dizziness, focal weakness, gait abnormality and falls; however states her LLE has been feeling heavy for the past 4 days. UA completed in ER concerning for persistent UTI. Pt will be admitted for further evaluation and treatment. I anticipate she will require greater than a 2 midnight stay. Past Medical History: Diagnosis Date Arthritis Charcot foot due to diabetes mellitus ([facility]/HCC) ([facility]/HCC) LEFT FOOT Constipation COVID-19 Diabetes mellitus ([facility]/HCC) (CMS/HCC) Diabetic neuropathy ([facility]/HCC) ([facility]/HCC) Gastric ulcer High cholesterol Hypertension Kidney stone 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 UTI (urinary tract infection) Vision decreased blind right eye, poor vision left eye Past Surgical History: Procedure Laterality Date 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 SURGERY HYSTERECTOMY 2004, 2019 hysterectomy, cervical surgery RETINAL DETACHMENT SURGERY Right Social History Socioeconomic History Marital status: Spouse [...] file Stress: No Stress Concern Present (09/03/2022) Citizen Of [place] [employer] - Occupational Stress Questionnaire [...] in the Last Year: No Family History Problem Relation Name Age of Onset Diabetes Mother Hypertension Mother Heart Attack Father Hypertension Father Stroke Sister Hypertension Sister Breast Cancer Other cousin 49 Prior to Admission medications Medication Sig Start Date End Date Taking? Authorizing Provider amLODIPine (NORVASC) 10 MG tablet Take 1 tablet by mouth once daily Patient taking differently: Take 1 tablet (10 mg total) by mouth nightly at bedtime. 08/07/22 Yes Yasmin Segura II, MD ciprofloxacin (CIPRO) 500 MG tablet Take 1 tablet (500 mg total) by mouth 2 (two) times daily for 7days. 03/01/23 03/08/23 Yes Yasmin Segura II, MD lisinopril (PRINIVIL) 20 MG tablet Take 1 tablet (20 mg total) by mouth every evening. Indications:hypertension 09/09/22 09/09/23 Yes Sofy Acevedo MD omeprazole (PRILOSEC) 20 MG capsule Take 1 capsule (20 mg total) by mouth daily. Yes Default History Genericprovider simvastatin (ZOCOR) 40 MG tablet TAKE 1 TABLET BY MOUTH AT BEDTIME Patient taking differently: Take 1 tablet (40 mg total) by mouth nightly at bedtime. 10/04/21 Yes Yasmin Segura II, MD calcium carbonate (TUMS) 500 MG chewable tablet Chew 1 tablet (500 mg total) by mouth 2 (two) timesdaily as needed. 11/11/22 Ysabel Perkins MD Glucose Blood (ACCU-CHEK CIERRA PLUS) test strip 1 strip by Other route 2 (two) times daily. Use as instructed 12/05/22 Yasmin Segura II, MD HUMALOG MIX 75/25 (75-25) 100 UNIT/ML Suspension Inject 55-65 Units into the skin see administration instructions. INJECT 65 UNITS SUBCUTANEOUSLY ONCE DAILY IN THE MORNING THEN 55 ONCE DAILY IN THE EVENING Patient taking differently: Inject 60-70 Units into the skin see administration instructions. INJECT 70 UNITS SUBCUTANEOUSLY ONCE DAILY IN THE MORNING THEN 60 ONCE DAILY IN THE EVENING 01/30/23 Kayla Segura II, MD Insulin Syringe-Needle U-100 (INSULIN SYRINGE 1CC/30GX5/16 ) 30G X 5/16 1 ML Misc Use as directed to inject insulin twice a day. 11/24/22 Yasmin Segura II, MD ondansetron (ZOFRAN-ODT) 4 MG disintegrating tablet Take 1 tablet (4 mg total) by mouth every 6 (six) hours as needed for Nausea. 11/11/22 Ysabel Perkins MD oxybutynin (DITROPAN) 5 MG tablet Take 1 tablet (5 mg total) by mouth 3 (three) times daily as needed (pain). 10/20/22 Default History Genericprovider oxyCODONE-acetaminophen (PERCOCET) 5-325 MG tablet Take 1-2 tablets by mouth every 4 (four) hours as needed for Pain. Indications: Acute Pain < 7 Day Supply 11/08/22 Kvng Lewis MD I have reviewed current outpatient medications and reconciled them for inpatient admission. Appropriate medications to be continued. Inappropriate medications to be held for now. Allergies Allergen Reactions Fish Oil Unknown Amoxicillin Rash Penicillins Rash ROS: A 10 point review of systems was taken and pertinent positives and negatives as per HPI. All othersnegative save as noted in HPI. PHYSICAL EXAM: No intake or output data in the 24 hours ending 03/05/23 1656 Patient Vitals for the past 24 hrs: BP Temp Temp src Pulse Resp SpO2 Height Weight 03/05/23 1302 (!) 156/74 98.1 ??F (36.7 ??C) Temporal 98 18 100 % 1.676 m (5' 6 ) 90.3 kg (199 lb) Intake/Output :[id number]@ Constitutional: Well developed, Well nourished, No acute distress, Non-toxic appearance. Obese HENT: Normocephalic, Oropharynx moist, Eyes: PERRL, EOMI, . Respiratory: decreased bilaterally no rales, rhonchi, or wheezes. Good aeration. No accessory muscle use. Cardiovascular: S1, S2 present, regular rate and rhythm. No murmurs, rubs, or gallops. Bilateral radial and dorsalis pedis pulses +2 trace edema to bilateral lower extremities GI: Bowel sounds normal, Soft, guarding, diffuse tenderness upon palpation Musculoskeletal: Intact distal pulses, amputation 2nd digit left foot Integument: Warm, Dry, No erythema, No rash. biopsy site 2nd digit right foot Neurologic: Alert & oriented x 3, No focal deficits noted. Psychiatric: Affect normal, Judgment normal, Mood normal Labs: Recent Labs Lab 03/05/23 1409 WBC 9.6 RBC 4.15* HGB 12.4 HCT 36.4* MCV 87.7 MCH 29.9 MCHC 34.1 PLT 322 RDW 12.9 MPV 11.3 PERNEU 66.9 PERLYM 27.0 PERMON 4.4 LYMC 2.59 MONOC 0.42 EOSC 0.09 BASOC 0.05 DTYPE AUTOMATED DIFFERENTIAL Recent Labs Lab 03/05/23 1409 NA 135* K 4.5 CL 106 CO2 27.4 AGAP 1.6* BUN 19* CR 1.08* BUNCREATININ 17.6 GLU 222* CA 9.3 TP 9.0* ALB 3.2* TBIL 0.5 ALKP 171* AST 32 ALT 33 No results for input(s): CHOL , TRI , HDL , LDL , HGBA1C , TSH in the last 168 hours. No results for input(s): APTT , INR , PTT in the last 168 hours. No results for input(s): TROP , TROPIWB , CKMB , CPK in the last 168 hours. Recent Labs Lab 03/05/23 1409 LACTICACID 1.1 No results for input(s): PH , PCO2 , PO2 , B0HIVHCVHNIA , BICARBWB , BASEDEFICIT , BASEEXCESS in [...] URINE GLUCOSE 200 (A) NORMAL MG/DL KETONES (U) NEGATIVE NEGATIVE MG/DL UROBILINOGEN NORMAL NORMAL MG/DL BILIRUBIN (U) NEGATIVE NEGATIVE MG/DL BLOOD (U) NEGATIVE NEGATIVE CULTURE & SENSITIVITY INDICATED? CULTURE IS NOT INDICATED MUCUS RARE /LPF WBC/HPF 1 <6 /HPF RBC/HPF 1 <6 /HPF BACTERIA (U) RARE (A) NONE /HPF SQUAMOUS EPITHELIALS RARE /HPF Diagnostic Review CT ABD+PEL W IV CON ONLY Result Date: 03/05/2023 EXAMINATION: CT ABDOMEN AND PELVIS WITH CONTRAST EXAM DATE/TIME: 03/05/2023 3:12 PM REASON FOR EXAM: Abdominal pain, acute, nonlocalized COMPARISON: 11/09/2022 TECHNIQUE: Axial imaging of the abdomen and pelvis was obtained in corticomedullary and excretory phase after 100 mL Isovue- 370 was injected. Oral contrast was not administered. Dose lowering technique was used for thisstudy which may include, but is not limited to, dose reduction techniques, automated exposure control, use of iterative reconstruction and ALARA (As low As Reasonably Achievable)/Image Gently techniques. FINDINGS: Abdomen: Adrenal glands: Unremarkable. Kidneys: Chronic right hydronephrosis and renal cortical atrophy compatible with chronic obstructive uropathy, grossly stable. There is urothelialthickening proximally, pyelitis and urinary tract infection is a concern. No definite signs of pyelonephritis. At least 3 interpolar and upper pole nonobstructive calculi on the right, the largest andrew suring 3 mm. No evidence of obstructive urolithiasis. Nonobstructive 3 mm interpolar calculus on the left. Spleen: Calcified granulomas indicate healed granulomatous disease. Stable subcapsular low-density lesion measuring 7 mm superiorly, likely incidental. Nonspecific. Stomach and duodenum: Smallhiatal hernia. Stomach and duodenum otherwise unremarkable. Gallbladder: Partially filled and grossly unremarkable. Pancreas grossly unremarkable. Liver: No evidence of intrahepatic biliary dilatation or mass. Portal vein patent. No mesenteric lymphadenopathy or evidence of small bowel obstruction.No free fluid or free air. No evidence of retroperitoneal lymphadenopathy. No evidence of an abdominal aortic aneurysm. Moderate atherosclerosis. Scattered fecal material and gas throughout the colonwithout evidence of mass or dilatation. Appendix not inflamed. Pelvis: Urinary bladder and rectum are unremarkable. On bone windows, no evidence of suspicious skeletal lesion or acute compression fracture deformity. Limited evaluation of the lower thorax demonstrates no acute abnormality. ===== IMPRESSION:===== 1. Chronic right hydronephrosis and renal cortical atrophy compatible with chronicobstructive uropathy, grossly stable. There is urothelial thickening [...] free air. Appendix normal. 6. Moderate atherosclerosis. Referred By: Interpreted By: Isaías Jones MD, 03/05/2023 3:31 PM ASSESSMENT AND PLAN: UTI NO sepsis at this time; failed outpatient treatment Medical Floor CT Abd/Pelvis as above UA concerning for uti: 500 Urine leukocyte esterase, +2 blood, > 100 Urine WBC Blood Cultures x 2 IV Ceftriaxone administered in ER-continue Monitor the evolution of urine C & S Pain management- Monitor for toxicity Pt with difficulty with words findings- suspect secondary to underlying infection; CT Head pending Chronic right hydronephrosis CT Abd/Pelvis revealed: Chronic right hydronephrosis and renal cortical atrophy compatible with chronic obstructive uropathy, grossly stable. 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 -At least 3 interpolar and upper pole nonobstructive calculi on the right, the largest measuring 3 mm. No evidence of obstructive urolithiasis. -Nonobstructive 3 mm interpolar calculus on the left. Strain all urine Continue to monitor Diarrhea Multiple liquids stool for past 2 days Treated with PO Antibiotics Check gi panel Pt takes Linzess; if diarrhea persists despite stopping Linzess-check for Cdiff Continue to monitor CKD stage 3 Cr=1.08, Cr=1.11; Cr=1.11 on 02/03/23 IV fluids administered in ER Avoid nephrotoxic agents and hypoperfusion Continue to monitor Diabetes Mellitus Continue home Lantus ACHS blood glucose monitoring ACHS sliding scale insulin Hypoglycemic protocol A1c=9.1 on 02/03/23 Hypertension Continue home BP medication Monitor BP and titrate if indicated Splenic lesion CT Abd/Pelvis revealed: Calcified granulomas of the spleen, stable. Stable 7 mm low-density lesion of the superior subcapsular splenic, likely incidental. Stable co morbidities contributing to high complexity of care Anxiety, Arthritis, Charcot foot due to diabetes mellitus , Constipation, Hx of COVID-19, Diabetic neuropathy, Gastric ulcer, High cholesterol, Kidney stone, Renal disorder, UTI (urinary tract infection), and Vision decreased. - DVT prophylaxis: SCDs until CT Head complete - Diet/IVF: ADA - Code status:FULL CODE - Disposition: Medical Inpatient Spent 16 minutes discussing plan of care as well as patient wishes and desires regarding medical care 03/05/2023. The patient/MPoA verbalizes understanding and wishes to remain a FULL CODE currently. Surrogate decision maker/MPoA is her mother. The above plan of care was discussed [...] patient independently and anticipate patient will require > 2 midnights. This note was dictated with the use of [employer] dictation software and was proofread to the best of my ability. If you have questions or find errors, please contact me via [employer]. Thank you. WANDA LANGSTON APRN 03/05/2023 4:56 PM Cosigned by Heidi Jolly MD at 03/05/2023 6:50 PM PIT LABORER LABORER LABORER Associated attestation - Heidi Jolly MD - 03/05/2023 6:50 PM PIT LABORER IHeidi MD participated in the care of this patient today and discussed the plan of care with advance provider who shared in this visit. I have reviewed the KIAN's documentation and agreewith the findings except as I have documented. I personally spent a substantial amount of time on medical decision making and caring for this patient. Patient seen and examined. SYSTEMS TEST ENGINEER/PA note reviewed. General: . Awake, alert, appears uncomfortable CV: RRR, Pulmonary: Clear to auscultation. Nonlabored. No wheezing/rhonchi/crackles Abdomen: Soft, nondistended, diffuse tenderness over lower abdomen, +CVA tenderness on the right Agree with plan as outlined above. Patient admitted for UTI and pyelitis. Failed outpatient antibiotics. Start ceftriaxone. Follow-up culture Heidi Jolly MD documented in this encounter Nursing Notes * Ana Aleman RN - 03/06/2023 9:25 PM CST PVR scan per order completed. Pt. Voided 300ml urine, scan shows 0ml in bladder at this time. LABORER documented in this encounter ED Notes * Parris Bang RN - 03/06/2023 8:20 AM CST Pharmacy called to request insulin be sent to ED. LABORER * Gladys Blanco RN - 03/06/2023 7:31 AM CST POCT glucose 183 at this time. LABORER * Opal Lei RN - 03/05/2023 1:28 PM CST Pt from provider's office with cc of UTI symptoms. Has had a course of ABX with no relief, concern for pyelonephritis. 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 Segura) for evaluation of concern for possible kidney infection. Patient reports dysuria, urgency and frequency over the past 2 weeks. Was started onciprofloxacin last week. Started to develop right flank pain, chills and fatigue over the past couple days. Had a urine dip performed at PCP office concerning for persistent urinary tract infection. Denies formal temperatures, chest pain, shortness of breath, rash, vaginal complaints. Medical History ALLERGIES: Review of patient's allergies indicates: Allergen Reactions Fish Oil Unknown Amoxicillin Rash Penicillins Rash MEDICATIONS: Prior to Admission medications Medication Sig Start Date End Date Taking? Authorizing Provider amLODIPine (NORVASC) 10 MG tablet Take 1 tablet by mouth once daily Patient taking differently: Take 1 tablet (10 mg total) by mouth nightly at bedtime. 08/07/22 Yes Yasmin Segura II, MD ciprofloxacin (CIPRO) 500 MG tablet Take 1 tablet (500 mg total) by mouth 2 (two) times daily for 7days. 03/01/23 03/08/23 Yes Yasmin Segura II, MD lisinopril (PRINIVIL) 20 MG tablet Take 1 tablet (20 mg total) by mouth every evening. Indications:hypertension 09/09/22 09/09/23 Yes Sofy Acevedo MD omeprazole (PRILOSEC) 20 MG capsule Take 1 capsule (20 mg total) by mouth daily. Yes Default History Genericprovider simvastatin (ZOCOR) 40 MG tablet TAKE 1 TABLET BY MOUTH AT BEDTIME Patient taking differently: Take 1 tablet (40 mg total) by mouth nightly at bedtime. 10/04/21 Yes Yasmin Segura II, MD calcium carbonate (TUMS) 500 MG chewable tablet Chew 1 tablet (500 mg total) by mouth 2 (two) timesdaily as needed. 11/11/22 Ysabel Perkins MD Glucose Blood (ACCU-CHEK CIERRA PLUS) test strip 1 strip by Other route 2 (two) times daily. Use as instructed 12/05/22 Yasmin Segura II, MD HUMALOG MIX 75/25 (75-25) 100 UNIT/ML Suspension Inject 55-65 Units into the skin see administration instructions. INJECT 65 UNITS SUBCUTANEOUSLY ONCE DAILY IN THE MORNING THEN 55 ONCE DAILY IN THE EVENING Patient taking differently: Inject 60-70 Units into the skin see administration instructions. INJECT 70 UNITS SUBCUTANEOUSLY ONCE DAILY IN THE MORNING THEN 60 ONCE DAILY IN THE EVENING 01/30/23 Kayla Segura II, MD Insulin Syringe-Needle U-100 (INSULIN SYRINGE 1CC/30GX5/16 ) 30G X 5/16 1 ML Misc Use as directed to inject insulin twice a day. 11/24/22 Yasmin Segura II, MD ondansetron (ZOFRAN-ODT) 4 MG disintegrating tablet Take 1 tablet (4 mg total) by mouth every 6 (six) hours as needed for Nausea. 11/11/22 Ysabel Perkins MD oxybutynin (DITROPAN) 5 MG tablet Take 1 tablet (5 mg total) by mouth 3 (three) times daily as needed (pain). 10/20/22 Default History Genericprovider oxyCODONE-acetaminophen (PERCOCET) 5-325 MG tablet Take 1-2 tablets by mouth every 4 (four) hours as needed for Pain. Indications: Acute Pain < 7 Day Supply 11/08/22 Kvng Lewis MD PAST MEDICAL HISTORY: Past Medical History: [...] 3RD TOE BLADDER SURGERY EYE SURGERY HYSTERECTOMY 2019 hysterectomy, cervical surgery RETINAL DETACHMENT SURGERY Right FAMILY HISTORY: Family History Problem Relation Name Age of Onset Diabetes Mother Hypertension Mother Heart Attack Father Hypertension Father Stroke Sister Hypertension Sister Breast Cancer Other cousin 49 SOCIAL HISTORY: Social History Tobacco Use Smoking status: Never Smokeless tobacco: Never Vaping Use Vaping Use: Never used Substance Use Topics Alcohol use: Not Currently Comment: few times per year Drug use: No Review of Systems Review of Systems Constitutional: Positive for chills and fatigue. Genitourinary: Positive for dysuria, flank pain and frequency. Musculoskeletal: Positive for back pain. All other systems reviewed and are negative. Physical Exam Filed Vitals: 03/05/23 1302 BP: (!) 156/74 Pulse: 98 Resp: 18 Temp: 98.1 ??F (36.7 ??C) TempSrc: Temporal SpO2: 100% Weight: 90.3 kg (199 lb) Height: 1.676 [...] soft. Tenderness: There is no abdominal tenderness. There is right CVA tenderness. Musculoskeletal: General: Normal range of motion. Cervical back: Normal range of motion and neck supple. Skin: General: Skin is warm and dry. Capillary Refill: Capillary refill takes less than 2 seconds. Neurological: General: No focal deficit present. Mental Status: She is alert and oriented to person, place, and time. Psychiatric: Mood and Affect: Mood normal. Behavior: Behavior normal. Diagnostic Studies / Procedures ELECTROCARDIOGRAMS: No results found for this visit on 03/05/23. LABORATORY STUDIES: Results for orders placed or performed during the hospital encounter of 03/05/23 CBC W/DIFF AUTOMATED Result Value Ref Range WBC 9.6 4.5 - 11.0 x10'3/uL RBC 4.15 (L) 4.20 - 5.40 x10'6/uL HGB 12.4 12.0 - 16.0 G/DL HCT 36.4 (L) 38.0 - 48.0 % MCV 87.7 81.0 - 99.0 FL MCH 29.9 27.0 - 31.0 PG MCHC 34.1 32.0 - 36.0 G/DL RDW 12.9 11.5 - 14.5 % PLT 322 130 - 400 x10'3/uL MPV 11.3 9.3 - 12.2 FL DIFFERENTIAL TYPE AUTOMATED DIFFERENTIAL NEUTROPHILS 66.9 % LYMPHOCYTES 27.0 % MONOCYTES 4.4 % EOSINOPHILS 0.9 % BASOPHILS 0.5 % IMMATURE GRANS 0.3 % ABS. NEUTROPHILS TOTAL 6.41 1.80 - 7.70 x10'3/uL ABS. LYMPHOCYTES 2.59 1.00 - 4.80 x10'3/uL ABS. MONOCYTES 0.42 0.24 - 0.86 x10'3/uL ABS. EOSINOPHILS 0.09 0.04 - 0.36 x10'3/uL ABS. BASOPHILS 0.05 0.01 - 0.08 x10'3/uL ABS. IMMATURE GRANULOCYTES 0.03 0.00 - 0.49 x10'3/uL COMPREHENSIVE METABOLIC PANEL Result Value Ref Range GLUCOSE 222 (H) 70 - 99 MG/DL BUN 19 (H) 7 - 18 MG/DL CREATININE S/P/B 1.08 (H) 0.55 - 1.02 MG/DL SODIUM S/P/B 135 (L) 136 - 145 MMOL/L POTASSIUM S/P/B 4.5 3.5 - 5.1 MMOL/L CHLORIDE S/P/B 106 100 - 108 MMOL/L CO2 27.4 21 - 32 MMOL/L CALCIUM S/P/B 9.3 8.5 - 10.1 MG/DL BILIRUBIN TOTAL S/P/B 0.5 0.2 - 1.2 MG/DL TOTAL PROTEIN S/P/B 9.0 (H) 6.4 - 8.2 G/DL ALBUMIN S/P/B 3.2 (L) 3.4 - 5.0 G/DL AST 32 15 - 37 U/L ALT 33 14 - 55 U/L ALKALINE PHOSPHATASE S/P/B 171 (H) 50 - 136 U/L ANION GAP 1.6 (L) 5 - 15 MMOL/L BUN CREATININE RATIO 17.6 6 - 26 A/G RATIO 0.6 (L) 1.0 - 2.0 RATIO GFR ESTIMATE 62 (L) >90 ML/MIN/1.73 M2 URINALYSIS Result Value Ref Range Specimen Type URINE CLEAN CATCH COLOR (U) LIGHT YELLOW TRANSPARENCY TURBID SPECIFIC GRAVITY (U) 1.011 1.001 - 1.030 U PH 6.0 5.0 - 9.0 LEUKOCYTES (U) 500 (A) NEGATIVE NITRITES NEGATIVE NEGATIVE PROTEIN RANDOM (U) 100 (H) <30 MG/DL GLUCOSE (U) 100 (A) NORMAL MG/DL KETONES (U) NEGATIVE NEGATIVE MG/DL UROBILINOGEN NORMAL NORMAL MG/DL BILIRUBIN (U) NEGATIVE NEGATIVE MG/DL BLOOD (U) 2+ (A) NEGATIVE CULTURE & SENSITIVITY INDICATED? SPECIMEN SETUP FOR CULTURE WBC/HPF >100 (H) <6 /HPF RBC/HPF 10 (H) <6 /HPF BACTERIA (U) RARE (A) NONE /HPF SQUAMOUS EPITHELIALS RARE /HPF LACTIC ACID W REFLEX (SEPSIS) Result Value Ref Range LACTIC ACID 1.1 0.4 - 2.0 MMOL/L IMAGING STUDIES CT ABD+PEL W IV CON ONLY Final Result by User, [id number] (03/05 538) EXAMINATION: CT ABDOMEN AND PELVIS WITH CONTRAST EXAM DATE/TIME: 03/05/2023 3:12 PM REASON FOR EXAM: Abdominal pain, acute, nonlocalized COMPARISON: 11/09/2022 TECHNIQUE: Axial imaging of the abdomen and pelvis was obtained in corticomedullary and excretory phase after 100 mL Isovue-370 was injected. Oral contrast was not administered. Dose lowering technique was used for this study which may include, but is not limited to, dose reduction techniques, automated exposure control, use of iterative reconstruction and ALARA (As low As Reasonably Achievable)/Image Gently techniques. FINDINGS: Abdomen: Adrenal glands: Unremarkable. Kidneys: Chronic right hydronephrosis and renal cortical atrophy compatible with chronic obstructive uropathy, grossly stable. There is urothelial thickening proximally, pyelitis and urinary tract infection is a concern. No definite signs of pyelonephritis. At least 3 interpolar and upper pole nonobstructive calculi on the right, the largest measuring 3 mm. No evidence of obstructive urolithiasis. Nonobstructive 3 mm interpolar calculus on the left. Spleen: Calcified granulomas indicate healed granulomatous disease. Stable subcapsular low-density lesion measuring 7 mm superiorly, likely incidental. Nonspecific. Stomach and duodenum: Small hiatal hernia. Stomach and duodenum otherwise unremarkable. Gallbladder: Partially filled and grossly unremarkable. Pancreas grossly unremarkable. Liver: No evidence of intrahepatic biliary dilatation or mass. Portal vein patent. No mesenteric lymphadenopathy or evidence of small bowel obstruction. No free fluid or free air. No evidence of retroperitoneal lymphadenopathy. No evidence of an abdominal aortic aneurysm. Moderate atherosclerosis. Scattered fecal material and gas throughout the colon without evidence of mass or dilatation. Appendix not inflamed. Pelvis: Urinary bladder and rectum are unremarkable. On bone windows, no evidence of suspicious skeletal lesion or acute compression fracture deformity. Limited evaluation of the lower thorax demonstrates no acute abnormality. ===== IMPRESSION:===== 1. Chronic right hydronephrosis and renal cortical [...] free air. Appendix normal. 6. Moderate atherosclerosis. Referred By: Interpreted By: Isaías Jones MD, 03/05/2023 3:31 PM ED Course / Medical Decision Making MDM Amount and/or Complexity of Data Reviewed Clinical lab tests: reviewed and ordered Tests in the radiology section of CPT??: reviewed and ordered Discuss the patient with other providers: yes (Dr. Segura, PCP Dr. Jolly, hospitalist) ED Course as of 03/05/23 1611 Mon Mar 05, 2023 1440 WBC: 9.6 [AD] 1509 WBC/HPF(!): >100 [AD] 1510 CREATININE S/P/B(!): 1.08 At baseline [AD] 1540 ALKALINE PHOSPHATASE S/P/B(!): 171 [AD] 1542 CT ABD+PEL W IV CON ONLY Per rad read: 1. Chronic right hydronephrosis and renal cortical [...] free fluid or free air. Appendix normal. [AD] 1542 Nontoxic-appearing 52-year-old presents for evaluation of persistent urinary symptoms and right flank pain despite being treated outpatient with ciprofloxacin. Urine is suggestive of persistent UTI. No evidence of HEMA or sepsis. In shared decision-making with patient along with PCP, will admitfor failed outpatient treatment. Patient previously on Keflex in the past. Will give a dose of IV Rocephin. Doc halo sent to hospitalist for admission. [AD] 1610 S/w Dr. Jolly who accepts admission to medical. No additional orders. Reviewed plan and workup along with consultations with patient who is in agreement with plan for admission [AD] ED Course User Index [AD] CYNTHIA Babb Medications morphine injection 2 mg (has no administration in time range) ondansetron (ZOFRAN) injection 4 mg (has no administration in time range) sodium chloride 0.9% bolus infusion 500 mL (has no administration in time range) diphenhydrAMINE (BENADRYL) injection 25 mg (has no administration in time range) cefTRIAXone (ROCEPHIN) 1 g in sodium chloride 0.9 % 50 mL IVPB (has no administration in time range) iopamidol (ISOVUE-370) 76 % injection 100 mL (100 mLs Intravenous Given 03/05/23 1518) Clinical Impression Pyelitis (Primary) Current Discharge Medication List Disposition: Admit Follow-Up: No follow-up provider specified. CYNTHIA BABB 03/05/2023 CYNTHIA Babb 03/05/23 1611 Cosigned by Enrrique Jara MD at 03/06/2023 4:36 PM PIT LABORER LABORER LABORER * Yasmin Tomlin PA-C - 03/05/2023 12:56 PM CSTSummary: flank pain [place], [place] EMERGENCY DEPARTMENT ENCOUNTER Medical Screening Examination 03/05/23 1:29 PM Chief Complaint : No chief complaint on file. HPI : Lena Youngblood is a 52-year-old female who presents c/o right flank pain. Sent form pcp for concern of pyelo/sepsis. Dx with UTI 2 weeks ago, completed Cipro. Vital Signs: Filed Vitals: 03/05/23 1302 BP: (!) 156/74 Pulse: 98 Resp: 18 Temp: 98.1 ??F (36.7 ??C) TempSrc: Temporal SpO2: 100% Weight: 90.3 kg (199 lb) Height: 1.676 m (5' 6 ) Physical exam: A brief physical exam was completed to facilitate/expedite patient care. [place] findings include: stable Plan: Labs & Imaging was ordered to facilitate patient care. YASMIN TOMLIN PA-C 03/05/2023 Yasmin Tomlin PA-C 03/05/23 1329 Cosigned by Enrrique Jara MD at 03/06/2023 4:35 PM PIT LABORER LABORER LABORER documented in this encounter Plan of Treatment Upcoming Encounters Date Type Department Care Team (Late st Contact Info) Description 03/14/2024 11:45 AM PIT LABORER Office Visit [facility]-[address] [phone] Marvin Mckeon MD [address] [facility] [address] [place] [address] 03/20/2024 11:30 AM PIT LABORER Office Visit [facility] Family Medicine - [place] [address] [place] [phone] Yasmin Segura II, MD [address] [place], [place] [phone] documented as of this encounter Goals Goal Patient Goal Type Associated Problems Recent Progress Patient-Stated? Author Family - family caregiver with be involved in care transitions and discharge planning Lifestyle Natty Angeles, RN documented as of this encounter Procedures Procedure Name Priority Date/Time Associated Diagnosis Comments POCT GLUCOSE - CORREA DOCKED DEVICE Routine 03/09/2023 11:45 AM PIT LABORER IRON SAT PANEL (IRON,IBC,%SAT) Routine 03/09/2023 9:12 AM PIT LABORER VITAMIN B-12 Routine 03/09/2023 9:12 AM PIT LABORER BASIC METABOLIC PANEL Routine 03/09/2023 9:12 AM PIT LABORER FOLIC ACID SERUM Routine 03/09/2023 9:12 AM PIT LABORER CBC W/DIFF AUTOMATED Routine 03/09/2023 9:12 AM PIT LABORER MAGNESIUM Routine 03/09/2023 9:12 AM PIT LABORER FERRITIN Routine 03/09/2023 9:12 AM PIT LABORER POCT GLUCOSE - CORREA DOCKED DEVICE Routine 03/09/2023 9:01 AM PIT LABORER POCT GLUCOSE - CORREA DOCKED DEVICE Routine 03/09/2023 6:43 AM PIT LABORER POCT GLUCOSE - CORREA DOCKED DEVICE Routine 03/09/2023 2:16 AM PIT LABORER POCT GLUCOSE - CORREA DOCKED DEVICE Routine 03/08/2023 8:11 PM PIT LABORER POCT GLUCOSE - CORREA DOCKED DEVICE Routine 03/08/2023 4:04 PM PIT LABORER POCT GLUCOSE - CORREA DOCKED DEVICE Routine 03/08/2023 12:03 PM PIT LABORER POCT GLUCOSE - CORREA DOCKED DEVICE Routine 03/08/2023 9:29 AM PIT LABORER POCT GLUCOSE - CORREA DOCKED DEVICE Routine 03/08/2023 5:52 AM PIT LABORER POCT GLUCOSE - CORREA DOCKED DEVICE Routine 03/07/2023 9:08 PM PIT LABORER POCT GLUCOSE - CORREA DOCKED DEVICE Routine 03/07/2023 5:18 PM PIT LABORER POCT GLUCOSE - CORREA DOCKED DEVICE Routine 03/07/2023 12:48 PM PIT LABORER POCT GLUCOSE - CORREA DOCKED DEVICE Routine 03/07/2023 11:36 AM PIT LABORER POCT GLUCOSE - CORREA DOCKED DEVICE Routine 03/07/2023 8:34 AM PIT LABORER COMPREHENSIVE METABOLIC PANEL Routine 03/07/2023 5:00 AM PIT LABORER CBC W/DIFF AUTOMATED Routine 03/07/2023 5:00 AM PIT LABORER PHOSPHORUS, INORGANIC PHOSPHATE Routine 03/07/2023 5:00 AM PIT LABORER MAGNESIUM Routine 03/07/2023 5:00 AM PIT LABORER POCT GLUCOSE - CORREA DOCKED DEVICE Routine 03/07/2023 2:46 AM PIT LABORER GI PANEL PCR - STOOL STAT 03/06/2023 9:18 PM PIT LABORER POCT GLUCOSE - CORREA DOCKED DEVICE Routine 03/06/2023 8:16 PM PIT LABORER POCT GLUCOSE - CORREA DOCKED DEVICE Routine 03/06/2023 4:29 PM PIT LABORER POCT GLUCOSE - CORREA DOCKED DEVICE Routine 03/06/2023 11:57 AM PIT LABORER POCT GLUCOSE - CORREA DOCKED DEVICE Routine 03/06/2023 7:28 AM PIT LABORER COMPREHENSIVE METABOLIC PANEL STAT 03/06/2023 6:02 AM PIT LABORER CBC W/DIFF AUTOMATED STAT 03/06/2023 6:02 AM PIT LABORER POCT GLUCOSE - CORREA DOCKED DEVICE Routine 03/06/2023 1:30 AM PIT LABORER POCT GLUCOSE - CORREA DOCKED DEVICE Routine 03/05/2023 9:[address] HEAD WO CON STAT 03/05/2023 6:13 PM PIT LABORER POCT GLUCOSE - CORREA DOCKED DEVICE Routine 03/05/2023 5:41 PM PIT LABORER ECG 12-LEAD Routine 03/05/2023 5:[address] ABD+PEL W CON STAT 03/05/2023 3:17 PM PIT LABORER CULTURE, BACTERIA, BLOOD STAT 03/05/2023 2:23 PM PIT LABORER LACTIC ACID W REFLEX (SEPSIS) STAT 03/05/2023 2:09 PM PIT LABORER COMPREHENSIVE METABOLIC PANEL STAT 03/05/2023 2:09 PM PIT LABORER CULTURE, BACTERIA, BLOOD STAT 03/05/2023 2:09 PM PIT LABORER CBC W/DIFF AUTOMATED STAT 03/05/2023 2:09 PM PIT LABORER HC URINALYSIS AUTO W/O MICRO STAT 03/05/2023 1:55 PM PIT LABORER URINE BACTERIA CULTURE STAT 1:55 PM PIT LABORER documented in this encounter Results * (ABNORMAL) POCT glucose (03/09/2023 11:45 AM PIT LABORER) GLUCOSE POC 139(H) 70 - 99 mg/dL 03/09/2023 12:12 PM PIT LABORER [facility] 03/09/2023 11:4 5 AM PIT LABORER us Major Edmond MD POCT ORDERABLES - YSABEL CE Final Result Performing Organization Address [facility] Co de Phone Number [facility] [address] [place] [id number], [place] [phone] * IRON SAT PANEL (IRON,IBC,%SAT) (03/09/2023 9:12 AM PIT LABORER) Pathologist [facility] IRON 69 50.0 - 170.0 MCG/DL 03/09/2023 11:17 AM PIT LABORER [facility] IRON BINDING CAPACITY 311 250 - 450 MCG/DL 03/09/2023 11:17 AM PIT LABORER [facility] IRON SATURATION 22 20 - 55 % 11:17 AM PIT LABORER [facility] 03/09/2023 9:12 AM PIT LABORER Major Edmond MD LABORATORY Final Result Performing Organization Address [facility]/ZIP Co de Phone Number [facility] [address] [place] [address], [place] [phone] * VITAMIN B-12 (03/09/2023 9:12 AM PIT LABORER) Pathologist [facility] VITAMIN B12 S/P/B 665 254 - 1,320 PG/ML 03/09/2023 11:37 AM PIT LABORER [facility] 03/09/2023 9:12 AM PIT LABORER Major Edmond MD LABORATORY Final Result Performing Organization Address City/[facility]/ZIP Co de Phone Number [facility] [address] [place] [id number], [place] [phone] * FOLIC ACID SERUM (03/09/2023 9:12 AM PIT LABORER) Pathologist [facility] FOLATE 9.7 3.1 - 17.5 NG/ML 03/09/2023 11:37 AM PIT LABORER [facility] 03/09/2023 9:12 AM PIT LABORER Major Edmond MD LABORATORY Final Result [facility] [address] [place] [address], * FERRITIN (03/09/2023 9:12 AM PIT LABORER) FERRITIN 55.8 8.0 - 388.0 NG/ML 03/09/2023 11:37 AM PIT LABORER [facility] 03/09/2023 9:12 AM PIT LABORER Major Edmond MD LABORATORY Final Result Performing Organization Address City/[facility]/ZIP Co de Phone Number [facility] [address] [place] [address], * (ABNORMAL) CBC W/DIFF AUTOMATED (03/09/2023 9:12 AM PIT LABORER) WBC 9.5 4.5 - 11.0 x10'3/uL 03/09/2023 9:37 AM PIT LABORER [facility] RBC 3.85(L) 4.20 - 5.40 x10'6/uL 03/09/2023 9:37 AM PIT LABORER [facility] HGB 11.3(L) 12.0 - 16.0 G/DL 03/09/2023 9:37 AM [facility] HCT 33.9(L) 38.0 - 48.0 % 03/09/2023 9:37 AM PIT LABORER [facility] MCV 88.1 81.0 - 99.0 FL 03/09/2023 9:37 AM [facility] MCH 29.4 27.0 - 31.0 PG 03/09/2023 9:37 AM [facility] MCHC 33.3 32.0 - 36.0 G/DL 03/09/2023 9:37 AM [facility] RDW 13.2 11.5 - 14.5 % 03/09/2023 9:37 AM [facility] PLT 279 130 - 400 x10'3/uL 03/09/2023 9:37 AM [facility] MPV 10.7 9.3 - 12.2 FL 03/09/2023 9:37 AM [facility] DIFFERENTIAL TYPE AUTOMATED DIFFERENTIAL 03/09/2023 9:37 AM [facility] NEUTROPHILS % 65.3 % 03/09/2023 9:37 AM [facility] LYMPHOCYTES % 27.8 % 03/09/2023 9:37 AM [facility] MONOCYTES % 4.4 % 03/09/2023 9:37 AM [facility] EOSINOPHILS 1.7 % 03/09/2023 9:37 AM [facility] BASOPHILS 0.5 % 03/09/2023 9:37 AM [facility] IMMATURE GRANS % 0.3 % 03/09/19 9:37 AM [facility] ABS. NEUTROPHILS TOTAL 6.18 1.80 - 7.70 x10'3/uL 03/09/2023 9:37 AM [facility] ABS. LYMPHOCYTES 2.63 1.00 - 4.80 x10'3/uL 03/09/2023 9:37 AM [facility] ABS. MONOCYTES 0.42 0.24 - 0.86 x10'3/uL 03/09/2023 9:37 AM PIT LABORER [facility] ABS. EOSINOPHILS 0.16 0.04 - 0.36 x10'3/uL 03/09/2023 9:37 AM PIT LABORER [facility] ABS. BASOPHILS 0.05 0.01 - 0.08 x10'3/uL 03/09/2023 9:37 AM PIT LABORER [facility] ABS. IMMATURE GRANULOCYTES 0.03 0.00 - 0.49 x10'3/uL 03/09/2023 9:37 AM PIT LABORER [facility] 03/09/2023 9:12 AM PIT LABORER Major Edmond MD LABORATORY Final Result Performing Organization Address [facility]/ZIP Co de Phone Number [facility] [address] [place] [place] [address], * MAGNESIUM (03/09/2023 9:12 AM PIT LABORER) MAGNESIUM 1.9 1.8 - 2.4 MG/DL 03/09/2023 11:17 AM PIT LABORER [facility] 03/09/2023 9:12 AM PIT LABORER Major Edmond MD LABORATORY Final Result Performing Organization Address [place]/[facility]/ZIP Co de Phone Number [facility] [address] [place] [address], * (ABNORMAL) BASIC METABOLIC PANEL (03/09/2023 9:12 AM PIT LABORER) GLUCOSE 179(H) 70 - 99 MG/DL 03/09/2023 11:17 AM PIT LABORER [facility] BUN 19(H) 7 - 18 MG/DL 03/09/2023 11:17 AM [facility] CREATININE S/P/B 1.22(H) 0.55 - 1.02 MG/DL 03/09/2023 11:17 AM [facility] SODIUM S/P/B 139 136 - 145 MMOL/L 03/09/2023 11:17 AM [facility] POTASSIUM S/P/B 5.0 3.5 - 5.1 MMOL/L 03/09/2023 11:17 AM [facility] CHLORIDE S/P/B 108 100 - 108 MMOL/L 03/09/2023 11:17 AM [facility] CO2 27.6 21 - 32 MMOL/L 03/09/2023 11:17 AM [facility] CALCIUM S/P/B 9.4 8.5 - 10.1 MG/DL 03/09/2023 11:17 AM [facility] ANION GAP 3.4(L) 5 - 15 MMOL/L 03/09/2023 11:17 AM [facility] BUN CREATININE RATIO 15.6 6 - 26 03/09/2023 11:17 AM [facility] GFR ESTIMATE 54(L) >90 ML/MIN/1.7 3 M2 03/09/2023 11:17 AM [facility] Comment: NOTE: eGFR is not calculated for patients <18 years of age. This is an estimated GFR calculation using the new CKD EPI creatinine equation without race and so does not require a correction factor for race. This estimated GFR should not be used for calculating drug doses. 03/09/2023 9:12 AM PIT LABORER us Major Edmond MD LABORATORY Final Result [facility] [address] [place] [address], [place] [phone] * (ABNORMAL) POCT glucose (03/09/2023 9:01 AM PIT LABORER) GLUCOSE POC 191(H) 70 - 99 mg/dL 03/09/2023 9:04 AM PIT LABORER [facility] 03/09/2023 9:01 AM PIT LABORER Major Edmond MD POCT ORDERABLES - YSABEL CE Final Result Performing Organization Address [facility]/ZIP Co de Phone Number [address] [address], [place] [phone] * (ABNORMAL) POCT glucose (03/09/2023 6:43 AM PIT LABORER) GLUCOSE POC 112(H) 70 - 99 mg/dL 03/09/2023 6:45 AM PIT LABORER [facility] 03/09/2023 6:43 AM PIT LABORER Major Edmond MD POCT ORDERABLES - YSABEL CE Final Result Performing Organization Address [place]/[facility]/ZIP Co de Phone Number [facility] [address] [place] [address], [place] [phone] * (ABNORMAL) POCT glucose (03/09/2023 2:16 AM PIT LABORER) GLUCOSE POC 104(H) 70 - 99 mg/dL 03/09/2023 2:23 AM PIT LABORER [facility] 03/09/2023 2:16 AM PIT LABORER us Ramesh Dexter DO POCT ORDERABLES - DEVICE Fi nal Result [facility] [address] [place] [address], [place] [phone] * (ABNORMAL) POCT glucose (03/08/2023 8:11 PM PIT LABORER) GLUCOSE POC 248(H) 70 - 99 mg/dL 03/08/2023 8:14 PM PIT LABORER [facility] 03/08/2023 8:11 PM PIT LABORER us Ramesh Dexter DO POCT ORDERABLES - DEVICE Fi nal Result Performing Organization Address [facility] Co de Phone Number [address] [address], [place] [phone] * (ABNORMAL) POCT glucose (03/08/2023 4:04 PM PIT LABORER) GLUCOSE POC 182(H) 70 - 99 mg/dL 03/08/2023 5:40 PM PIT LABORER [facility] 03/08/2023 4:04 PM PIT LABORER us Ramesh Dexter DO POCT ORDERABLES - DEVICE Fi nal Result Performing Organization Address [place]/[facility]/ZIP Co de Phone Number [facility] [address] [place] [address], [place] [phone] * (ABNORMAL) POCT glucose (03/08/2023 12:03 PM PIT LABORER) GLUCOSE POC 155(H) 70 - 99 mg/dL 03/08/2023 12:10 PM PIT LABORER [facility] 03/08/2023 12:0 3 PM PIT LABORER us Ramesh Dexter DO POCT ORDERABLES - DEVICE Fi nal Result Performing Organization Address [facility] Co de Phone Number [facility] [address] [place] [address], [place] [phone] * (ABNORMAL) POCT glucose (03/08/2023 9:29 AM PIT LABORER) GLUCOSE POC 180(H) 70 - 99 mg/dL 03/08/2023 9:33 AM PIT LABORER [facility] 03/08/2023 9:29 AM PIT LABORER us Ramesh Dexter DO POCT ORDERABLES - DEVICE Fi nal Result Performing Organization Address [facility]/[place]UST de Phone Number [address] [address], [place] [phone] * POCT glucose (03/08/2023 5:52 AM PIT LABORER) GLUCOSE POC 77 70 - 99 mg/dL 03/08/2023 5:53 AM PIT LABORER [facility] 03/08/2023 5:52 AM PIT LABORER us Ramesh Dexter DO POCT ORDERABLES - DEVICE Fi nal Result Performing Organization Address [place]/[facility] Co de Phone Number [facility] [address] [place] [address], [place] [phone] * (ABNORMAL) POCT glucose (03/07/2023 9:08 PM PIT LABORER) GLUCOSE POC 125(H) 70 - 99 mg/dL 03/07/2023 9:13 PM PIT LABORER [facility] 03/07/2023 9:08 PM PIT LABORER us Ramesh Dexter DO POCT ORDERABLES - DEVICE Fi nal Result Performing Organization Address [facility] Co de Phone Number [address] [address], [place] [phone] * (ABNORMAL) POCT glucose (03/07/2023 5:18 PM PIT LABORER) GLUCOSE POC 193(H) 70 - 99 mg/dL 03/07/2023 5:22 PM PIT LABORER [facility] 03/07/2023 5:18 PM PIT LABORER us Ramesh Dexter DO POCT ORDERABLES - DEVICE Fi nal Result Performing Organization Address [facility] Co de Phone Number [address] [address], [place] [phone] * (ABNORMAL) POCT glucose (03/07/2023 12:48 PM PIT LABORER) GLUCOSE POC 185(H) 70 - 99 mg/dL 03/07/2023 12:50 PM PIT LABORER [facility] 03/07/2023 12:4 8 PM PIT LABORER us Ramesh Dexter DO POCT ORDERABLES - DEVICE Fi nal Result Performing Organization Address [place]/[facility] Co de Phone Number [facility] [address] [place] [address], [place] [phone] * (ABNORMAL) POCT glucose (03/07/2023 11:36 AM PIT LABORER) GLUCOSE POC 130(H) 70 - 99 mg/dL 03/07/2023 11:38 AM PIT LABORER [facility] 03/07/2023 11:3 6 AM PIT LABORER Ramesh Dexter DO POCT ORDERABLES - DEVICE Fi nal Result Performing Organization Address [place]/[facility]/ZIP Co de Phone Number [facility] [address] [place] [address], [place] [phone] * (ABNORMAL) POCT glucose (03/07/2023 8:34 AM PIT LABORER) GLUCOSE POC 178(H) 70 - 99 mg/dL 03/07/2023 8:36 AM PIT LABORER [facility] 03/07/2023 8:34 AM PIT LABORER us Ramesh Dexter DO POCT ORDERABLES - DEVICE Fi nal Result Performing Organization Address [facility] Co de Phone Number [facility] [address] [place] [address], * PHOSPHORUS, INORGANIC PHOSPHATE (03/07/2023 5:00 AM PIT LABORER) PHOSPHORUS 4.2 2.5 - 4.9 MG/DL 03/07/2023 5:47 AM PIT LABORER [facility] 03/07/2023 5:00 AM PIT LABORER us Mendy Mirza MD LABORATORY Final Result Performing Organization Address [place]/[facility] Co de Phone Number [facility] [address] [place] [address], [place] [phone] * MAGNESIUM (03/07/2023 5:00 AM PIT LABORER) MAGNESIUM 1.9 1.8 - 2.4 MG/DL 03/07/2023 5:47 AM PIT LABORER [facility] 03/07/2023 5:00 AM PIT LABORER Mendy Mirza MD LABORATORY Final Result [facility] [address] [place] [address], [place] [phone] * (ABNORMAL) COMPREHENSIVE METABOLIC PANEL (03/07/2023 5:00 AM PIT LABORER) [facility] GLUCOSE 86 70 - 99 MG/DL 03/07/2023 5:47 AM [facility] BUN 23(H) 7 - 18 MG/DL 03/07/2023 5:47 AM [facility] CREATININE S/P/B 1.00 0.55 - 1.02 MG/DL 03/07/2023 5:47 AM [facility] SODIUM S/P/B 141 136 - 145 MMOL/L 03/07/2023 5:47 AM [facility] POTASSIUM S/P/B 3.4(L) 3.5 - 5.1 MMOL/L 03/07/2023 5:47 AM [facility] CHLORIDE S/P/B 115(H) 100 - 108 MMOL/L 03/07/2023 5:47 AM [facility] CO2 23.1 21 - 32 MMOL/L 03/07/2023 5:47 AM [facility] CALCIUM S/P/B 7.7(L) 8.5 - 10.1 MG/DL 03/07/2023 5:47 AM [facility] BILIRUBIN TOTAL S/P/B 0.2 0.2 - 1.2 MG/DL 03/07/2023 5:47 AM [facility] Comment: THIS ASSAY IS NOT RECOMMENDED FOR PATIENTS UNDERGOING TREATMENT WITH ELTROMBOPAG DUE TO THE POTENTIAL FOR FALSELY ELEVATED RESULTS. TOTAL PROTEIN S/P/B 7.1 6.4 - 8.2 G/DL 03/07/2023 5:47 AM [facility] ALBUMIN S/P/B 2.5(L) 3.4 - 5.0 G/DL 03/07/2023 5:47 AM [facility] AST 17 15 - 37 U/L 03/07/2023 5:47 AM [facility] ALT 21 14 - 55 U/L 03/07/2023 5:47 AM [facility] ALKALINE PHOSPHATASE S/P/B 129 50 - 136 U/L 03/07/2023 5:47 AM [facility] ANION GAP 2.9(L) 5 - 15 MMOL/L 03/07/2023 5:47 AM [facility] BUN CREATININE RATIO 23.0 6 - 26 03/07/2023 5:47 AM [facility] A/G RATIO 0.5(L) 1.0 - 2.0 RATIO 03/07/2023 5:47 AM [facility] GFR ESTIMATE 68(L) >90 ML/MIN/1.7 3 M2 03/07/2023 5:47 AM [facility] Comment: NOTE: eGFR is not calculated for patients <18 years of age. This is an estimated GFR calculation using the new CKD EPI creatinine equation without race and so does not require a correction factor for race. This estimated GFR should not be used for calculating drug doses. 03/07/2023 5:00 AM PIT LABORER us Mendy Mirza MD LABORATORY Final Result [facility] [address] [place] [address], [place] [phone] * (ABNORMAL) CBC W/DIFF AUTOMATED (03/07/2023 5:00 AM PIT LABORER) [facility] WBC 6.4 4.5 - 11.0 x10'3/uL 03/07/2023 5:45 AM [facility] RBC 2.91(L) 4.20 - 5.40 x10'6/uL 03/07/2023 5:45 AM [facility] HGB 8.7(L) 12.0 - 16.0 G/DL 03/07/2023 5:45 AM [facility] HCT 27.6(L) 38.0 - 48.0 % 03/07/2023 5:45 AM [facility] MCV 94.8 81.0 - 99.0 FL 03/07/2023 5:45 AM [facility] MCH 29.9 27.0 - 31.0 PG 03/07/2023 5:45 AM [facility] MCHC 31.5(L) 32.0 - 36.0 G/DL 03/07/2023 5:45 AM [facility] RDW 13.2 11.5 - 14.5 % 03/07/2023 5:45 AM [facility] PLT 197 130 - 400 x10'3/uL 03/07/2023 5:45 AM [facility] MPV 10.7 9.3 - 12.2 FL 03/07/2023 5:45 AM [facility] DIFFERENTIAL TYPE AUTOMATED DIFFERENTIAL 03/07/2023 5:45 AM [facility] NEUTROPHILS % 55.2 % 03/07/2023 5:45 AM [facility] LYMPHOCYTES % 36.5 % 03/07/2023 5:45 AM [facility] MONOCYTES % 5.9 % 03/07/2023 5:45 AM [facility] EOSINOPHILS 1.6 % 03/07/2023 5:45 AM [facility] BASOPHILS 0.5 % 03/07/2023 5:45 AM [facility] IMMATURE GRANS % 0.3 % 03/07/19 5:45 AM [facility] ABS. NEUTROPHILS TOTAL 3.54 1.80 - 7.70 x10'3/uL 03/07/2023 5:45 AM [facility] ABS. LYMPHOCYTES 2.34 1.00 - 4.80 x10'3/uL 03/07/2023 5:45 AM [facility] ABS. MONOCYTES 0.38 0.24 - 0.86 x10'3/uL 03/07/2023 5:45 AM [facility] ABS. EOSINOPHILS 0.10 0.04 - 0.36 x10'3/uL 03/07/2023 5:45 AM [facility] ABS. BASOPHILS 0.03 0.01 - 0.08 x10'3/uL 03/07/2023 5:45 AM [facility] ABS. IMMATURE GRANULOCYTES 0.02 0.00 - 0.49 x10'3/uL 03/07/2023 5:45 AM [facility] 03/07/2023 5:00 AM [facility] us Mendy Mirza MD LABORATORY Final Result [facility] [address] [place] [address], * (ABNORMAL) POCT glucose (03/07/2023 2:46 AM PIT LABORER) [facility] GLUCOSE POC 102(H) 70 - 99 mg/dL 03/07/2023 5:31 AM PIT LABORER [facility] 03/07/2023 2:46 AM PIT LABORER Mendy Mirza MD POCT ORDERABLES - DEVICE Final Result [facility] [address] [place] [address], * GI PANEL PCR - STOOL (03/06/2023 9:18 PM PIT LABORER) CAMPYLOBACTER PCR (STOOL) NOT DETECTED NOT DETECTED 03/07/2023 8:55 AM PIT LABORER [facility] PLESIOMONAS SHIGELLOIDES PCR (STOOL) NOT DETECTED NOT DETECTED 03/07/2023 8:55 AM PIT LABORER [facility] SALMONELLA PCR (STOOL) NOT DETECTED NOT DETECTED 03/07/2023 8:55 AM PIT LABORER [facility] VIBRIO PCR (STOOL) NOT DETECTED NOT DETECTED 03/07/2023 8:55 AM PIT LABORER [facility] VIBRIO CHOLERAE PCR (STOOL) NOT DETECTED NOT DETECTED 03/07/2023 8:55 AM PIT LABORER [facility] YERSINIA ENTEROCOLITICA PCR (STOOL) NOT DETECTED NOT DETECTED 03/07/2023 8:55 AM PIT LABORER [facility] ENTEROAGGREGATIVE ECOLI PCR (STOOL) NOT DETECTED NOT DETECTED 03/07/2023 8:55 AM PIT LABORER [facility] ENTEROPATHOGENIC ECOLI PCR (STOOL) NOT DETECTED NOT DETECTED 03/07/2023 8:55 AM PIT LABORER [facility] ENTEROTOXIGENIC ECOLI PCR (STOOL) NOT DETECTED NOT DETECTED 03/07/2023 8:55 AM PIT LABORER [facility] SHIGA LIKE TOXIN ECOLI PCR (STOOL) NOT DETECTED NOT DETECTED 03/07/2023 8:55 AM PIT LABORER [facility] SHIG/ENTEROINVASIVE ECOLI PCR (STOOL) NOT DETECTED NOT DETECTED 03/07/2023 8:55 AM PIT LABORER [facility] CRYPTOSPORIDIUM PCR (STOOL) NOT DETECTED NOT DETECTED 03/07/2023 8:55 AM PIT LABORER [facility] CYCLOSPORA CAYETANENSIS PCR (STOOL) NOT DETECTED NOT DETECTED 03/07/2023 8:55 AM PIT LABORER [facility] ENTAMOEBA HISTOLYTICA PCR (STOOL) NOT DETECTED NOT DETECTED 03/07/2023 8:55 AM PIT LABORER [facility] GIARDIA LAMBLIA PCR (STOOL) NOT DETECTED NOT DETECTED 03/07/2023 8:55 AM PIT LABORER [facility] ADENOVIRUS F40/41 PCR (STOOL) NOT DETECTED NOT DETECTED 03/07/2023 8:55 AM PIT LABORER [facility] ASTROVIRUS PCR (STOOL) NOT DETECTED NOT DETECTED 03/07/2023 8:55 AM PIT LABORER [facility] NOROVIRUS GI/GII PCR (STOOL) NOT DETECTED NOT DETECTED 03/07/2023 8:55 AM PIT LABORER [facility] ROTAVIRUS A PCR (STOOL) NOT DETECTED NOT DETECTED 03/07/2023 8:55 AM PIT LABORER [facility] SAPOVIRUS PCR (STOOL) NOT DETECTED NOT DETECTED 03/07/2023 8:55 AM PIT LABORER [facility] STOOL SPECIMEN / Unknown 03/06/2023 9:18 PM PIT LABORER Wanda Langston [facility] MICROBIOLOGY - GENERAL EFREN FRANK Final Result [facility] [address] [place] [address], * (ABNORMAL) POCT glucose (03/06/2023 8:16 PM PIT LABORER) GLUCOSE POC 126(H) 70 - 99 mg/dL 03/06/2023 8:19 PM PIT LABORER [facility] 03/06/2023 8:16 PM PIT LABORER us Mendy Mirza MD POCT ORDERABLES - DEVICE Final Result Performing Organization Address City/[facility]/ZIP Co de Phone Number [facility] [address] [place] [address], [place] [phone] * (ABNORMAL) POCT glucose (03/06/2023 4:29 PM PIT LABORER) GLUCOSE POC 146(H) 70 - 99 mg/dL 03/06/2023 4:38 PM PIT LABORER [facility] 03/06/2023 4:2 9 PM PIT LABORER us Mendy Mirza MD POCT ORDERABLES - DEVICE Final Result Performing Organization Address [facility] Co de Phone Number [facility] [address] [place] [address], [place] [phone] * (ABNORMAL) POCT glucose (03/06/2023 11:57 AM PIT LABORER) GLUCOSE POC 153(H) 70 - 99 mg/dL 03/06/2023 1:11 PM PIT LABORER [facility] 03/06/2023 11:5 7 AM PIT LABORER us Mendy Mirza MD POCT ORDERABLES - DEVICE Final Result Performing Organization Address City/[facility]/ZIP Co de Phone Number [facility] [address] [place] [address], [place] [phone] * (ABNORMAL) POCT glucose (03/06/2023 7:28 AM PIT LABORER) GLUCOSE POC 183(H) 70 - 99 mg/dL 03/06/2023 7:31 AM [facility] 03/06/2023 7:28 AM PIT LABORER Mendy Mirza MD POCT ORDERABLES - DEVICE Final Result [facility] [address] [place] [address], [place] [phone] * (ABNORMAL) COMPREHENSIVE METABOLIC PANEL (03/06/2023 6:02 AM PIT LABORER) GLUCOSE 174(H) 70 - 99 MG/DL 03/06/2023 6:35 AM [facility] BUN 21(H) 7 - 18 MG/DL 03/06/2023 6:35 AM [facility] CREATININE S/P/B 1.16(H) 0.55 - 1.02 MG/DL 03/06/2023 6:35 AM [facility] SODIUM S/P/B 139 136 - 145 MMOL/L 03/06/2023 6:35 AM [facility] POTASSIUM S/P/B 3.9 3.5 - 5.1 MMOL/L 03/06/2023 6:35 AM [facility] CHLORIDE S/P/B 106 100 - 108 MMOL/L 03/06/2023 6:35 AM [facility] CO2 30.0 21 - 32 MMOL/L 03/06/2023 6:35 AM [facility] CALCIUM S/P/B 9.1 8.5 - 10.1 MG/DL 03/06/2023 6:35 AM [facility] BILIRUBIN TOTAL S/P/B 0.3 0.2 - 1.2 MG/DL 03/06/2023 6:35 AM [facility] Comment: THIS ASSAY IS NOT RECOMMENDED FOR PATIENTS UNDERGOING TREATMENT WITH ELTROMBOPAG DUE TO THE POTENTIAL FOR FALSELY ELEVATED RESULTS. TOTAL PROTEIN S/P/B 8.5(H) 6.4 - 8.2 G/DL 03/06/2023 6:35 AM [facility] ALBUMIN S/P/B 3.1(L) 3.4 - 5.0 G/DL 03/06/2023 6:35 AM [facility] AST 18 15 - 37 U/L 03/06/2023 6:35 AM [facility] ALT 27 14 - 55 U/L 03/06/2023 6:35 AM [facility] ALKALINE PHOSPHATASE S/P/B 154(H) 50 - 136 U/L 03/06/2023 6:35 AM [facility] ANION GAP 3.0(L) 5 - 15 MMOL/L 03/06/2023 6:35 AM [facility] BUN CREATININE RATIO 18.1 6 - 26 03/06/2023 6:35 AM [facility] A/G RATIO 0.6(L) 1.0 - 2.0 RATIO 03/06/2023 6:35 AM [facility] GFR ESTIMATE 57(L) >90 ML/MIN/1.7 3 M2 03/06/2023 6:35 AM [facility] Comment: NOTE: eGFR is not calculated for patients <18 years of age. This is an estimated GFR calculation using the new CKD EPI creatinine equation without race and so does not require a correction factor for race. This estimated GFR should not be used for calculating drug doses. 03/06/2023 6:02 AM PIT LABORER us Wanda Langston [facility] Final Resul t [facility] [address] [place] [address], * (ABNORMAL) CBC W/DIFF AUTOMATED (03/06/2023 6:02 AM PIT LABORER) [facility] WBC 9.5 4.5 - 11.0 x10'3/uL 03/06/2023 6:15 AM [facility] RBC 3.64(L) 4.20 - 5.40 x10'6/uL 03/06/2023 6:15 AM [facility] HGB 10.7(L) 12.0 - 16.0 G/DL 03/06/2023 6:15 AM [facility] HCT 32.0(L) 38.0 - 48.0 % 03/06/2023 6:15 AM [facility] MCV 87.9 81.0 - 99.0 FL 03/06/2023 6:15 AM [facility] MCH 29.4 27.0 - 31.0 PG 03/06/2023 6:15 AM [facility] MCHC 33.4 32.0 - 36.0 G/DL 03/06/2023 6:15 AM [facility] RDW 13.0 11.5 - 14.5 % 03/06/2023 6:15 AM [facility] PLT 287 130 - 400 x10'3/uL 03/06/2023 6:15 AM [facility] MPV 10.7 9.3 - 12.2 FL 03/06/2023 6:15 AM [facility] DIFFERENTIAL TYPE AUTOMATED DIFFERENTIAL 03/06/2023 6:15 AM [facility] NEUTROPHILS % 55.8 % 03/06/2023 6:15 AM PIT LABORER [facility] LYMPHOCYTES % 37.1 % 03/06/2023 6:15 AM PIT LABORER [facility] MONOCYTES % 5.0 % 03/06/2023 6:15 AM [facility] EOSINOPHILS 1.5 % 03/06/2023 6:15 AM PIT LABORER [facility] BASOPHILS 0.4 % 03/06/2023 6:15 AM PIT LABORER [facility] IMMATURE GRANS % 0.2 % 03/06/19 6:15 AM P[facility] ABS. NEUTROPHILS TOTAL 5.27 1.80 - 7.70 x10'3/uL 03/06/2023 6:15 AM [facility] ABS. LYMPHOCYTES 3.51 1.00 - 4.80 x10'3/uL 03/06/2023 6:15 AM P[facility] ABS. MONOCYTES 0.47 0.24 - 0.86 x10'3/uL 03/06/2023 6:15 AM P[facility] ABS. EOSINOPHILS 0.14 0.04 - 0.36 x10'3/uL 03/06/2023 6:15 AM [facility] ABS. BASOPHILS 0.04 0.01 - 0.08 x10'3/uL 03/06/2023 6:15 AM P[facility] ABS. IMMATURE GRANULOCYTES 0.02 0.00 - 0.49 x10'3/uL 03/06/2023 6:15 AM [facility] 03/06/2023 6:02 AM P[facility] LAB[facility]ER Wanda Langston [facility] Final Resul t [facility] [address] [place] [address], [place] [phone] * (ABNORMAL) POCT glucose (03/06/2023 1:30 AM PIT LABORER) GLUCOSE POC 179(H) 70 - 99 mg/dL 03/06/2023 4:10 AM P[facility] 03/06/2023 1:30 AM PIT LABORER Heidi Jolly MD POCT ORDERABLES - DEVICE F inal Result Performing Organization Address City/[facility] Co de Phone Number [facility] [address] [place] [phone], * (ABNORMAL) POCT glucose (03/05/2023 9:52 PM PIT LABORER) GLUCOSE POC 152(H) 70 - 99 mg/dL 03/06/2023 12:52 AM P[facility]ER [facility] 03/05/2023 9:52 PM PIT LABORER Heidi Jolly MD POCT ORDERABLES - DEVICE F inal Result Performing Organization Address City/[facility] Co de Phone Number [facility] [address] [place] [phone], * CT HEAD WO CON (03/05/2023 6:13 PM PIT LABORER) Anatomical Region Laterality Modality Head Computed Tomogra phy 03/05/2023 6:16 PM PIT LABORER Impressions 03/05/2023 6:19 PM PIT LABORER IMPRESSION: 1. No definite CT evidence of acute intracranial abnormality, as above. 2. 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 Referred By: ?? Interpreted By: Jeromy Leyva MD, 03/05/2023 6:16 PM Narrative 03/05/2023 6:19 PM PIT LABORER EXAMINATION: CT of the head CLINICAL HISTORY: Headaches. Word finding difficulties COMPARISON: Head CT 01/19/2016 TECHNIQUE: CT examination of the head without contrast ??was performed with axial images obtained. A dose lowering technique was used for this procedure, which may include, but is not limited to, dose reduction technique, automated exposure control, the use of iterative reconstruction, and ALARA (As Low As Reasonably Achievable) / Image Gently techniques. FINDINGS: Increased attenuation of the intracranial vasculature, likely related to iodinated contrast administration for CT abdomen and pelvis done earlier same day. No large acute hemorrhage or extra-axial collections. Patchy foci of hypodensity suggested in the hemispheric white matter, possibly due to small vessel disease. Old left thalamic lacunar infarct. Intracranial vascular calcifications. No definite CT evidence of acute territorial infarction, though MRI would be more sensitive. Ventricles and extra-axial/subarachnoid spaces are unremarkable. Calvarium unremarkable. Mastoid air cells clear. Minimal mucosal thickening in the paranasal sinuses. Right-sided phthisis bulbi. Procedure Note Jeromy Leyva MD - 03/05/2023 EXAMINATION: CT of the head CLINICAL HISTORY: Headaches. Word finding difficulties COMPARISON: Head CT 01/19/2016 TECHNIQUE: CT examination of the head without contrast was performed withaxial images obtained. A dose lowering technique was used for this procedure, which may include,but is not limited to, dose reduction technique, automated exposurecontrol, the use of iterative reconstruction, and ALARA (As Low AsReasonably Achievable) / Image Gently techniques. FINDINGS: Increased attenuation of the intracranial vasculature, likely related toiodinated contrast administration for CT abdomen and pelvis done [place] day. No large acute hemorrhage or extra-axial collections. Patchyfoci of hypodensity suggested in the hemispheric white matter, possiblydue to small vessel disease. Old left thalamic lacunar infarct.Intracranial vascular calcifications. No definite CT evidence of acuteterritorial infarction, though MRI would be more sensitive. Ventricles andextra-axial/subarachnoid spaces are unremarkable. Calvarium unremarkable.Mastoid air cells clear. Minimal mucosal thickening in the paranasalsinuses. Right-sided phthisis bulbi. IMPRESSION: 1. No definite CT evidence of acute intracranial abnormality, as above. 2. Probable mild small vessel disease and old left thalamic lacunarinfarct. Referred By: Interpreted By: Jeromy Leyva MD, 03/05/2023 6:16 PM Wanda Langston BRAKE [facility]ID[facility] CT Final Resul t * (ABNORMAL) POCT glucose (03/05/2023 5:41 PM PIT LABORER) Pathologist [facility] GLUCOSE POC 116(H) 70 - 99 mg/dL 03/06/2023 12:52 AM PIT LABORER [facility] 03/05/2023 5:41 PM PIT LABORER Heidi Jolly MD POCT ORDERABLES - DEVICE F inal Result [facility] [address] [place] [address], * ECG 12 lead (03/05/2023 5:36 PM PIT LABORER) 03/05/2023 5:36 PM PIT LABORER Narrative [facility] EBONI (ABENA) RAD - 03/06/2023 5:56 AM PIT LABORER ?[facility] [place] ? [address] [facility] ? Test Date: ?2023-03-05 Pat Name: ? LENA YOUNGBLOOD ?Department: ?? 41 ? Room: ? EXAM09 Gender: ? Female ? 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 [id number] : ?1970 ? Requested By: CRYSTAL BROWN Order Number: [id number] ? Reading MD: ?? Alexei Rodríguez ? Measurements Intervals ?[place] ? Rate: ? 83 ? P: ?48 MT: ? 152 ?QRS: ?26 QRSD: ? 85 ? T: ?50 QT: ? 362 ? QTc: ?427 ? Interpretive Statements SINUS RHYTHM NONSPECIFIC T-WAVE ABNORMALITY Compared to ECG 11/09/2022 22:54:04 Sinus tachycardia no longer present T-wave abnormality still present Other ischemic changes, not STEMI Preliminary EKG Interpretation by Enrrique Jara M.D. LABORER Procedure Note Alexei Rodríguez MD - 03/06/2023 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 LABORER us Wanda Langston BRAKE RIDER ECG ORDERABLES Final Resul t [facility]) RAD * CT ABD+PEL W IV CON ONLY (03/05/2023 3:17 PM PIT LABORER) Anatomical Region Laterality Modality Abdomen Computed Tomogra phy 03/05/2023 3:31 PM PIT LABORER Impressions 03/05/2023 3:39 PM PIT LABORER IMPRESSION:===== 1. ?? Chronic right hydronephrosis and renal cortical atrophy compatible with chronic obstructive uropathy, grossly stable. ??There is urothelial thickening proximally, pyelitis and urinary tract infection is a concern. ??No definite signs of pyelonephritis. ??Clinical correlation and follow-up recommended. 2. ??Multiple nonobstructing calculi bilaterally. 3. ??Small hiatal hernia. 4. ??Calcified granulomas of the spleen, stable. ??Stable 7 mm low-density lesion of the superior subcapsular splenic, likely incidental. 5. ??No free fluid or free air. ??Appendix normal. 6. ??Moderate atherosclerosis. Referred By: ?? Interpreted By: Isaías Jones MD, 03/05/2023 3:31 PM Narrative 03/05/2023 3:39 PM PIT LABORER EXAMINATION: CT ABDOMEN AND PELVIS WITH CONTRAST EXAM DATE/TIME: 03/05/2023 3:12 PM REASON FOR EXAM: Abdominal pain, acute, nonlocalized COMPARISON: 11/09/2022 TECHNIQUE: Axial imaging of the abdomen and pelvis was obtained in corticomedullary and excretory phase after 100 mL Isovue-370 was injected. ??Oral contrast was not administered. Dose lowering technique was used for this study which may include, but is not limited to, dose reduction techniques, automated exposure control, use of iterative ??reconstruction and ALARA (As low As Reasonably Achievable)/Image Gently techniques. ?? FINDINGS: Abdomen: Adrenal glands: Unremarkable. Kidneys: ??Chronic right hydronephrosis and renal cortical atrophy compatible with chronic obstructive uropathy, grossly stable. ??There is urothelial thickening proximally, pyelitis and urinary tract infection is a concern. ??No definite signs of pyelonephritis. At least 3 interpolar and upper pole nonobstructive calculi on the right, the largest measuring 3 mm. ??No evidence of obstructive urolithiasis. Nonobstructive 3 mm interpolar calculus on the left. Spleen: ??Calcified granulomas indicate healed granulomatous disease. ??Stable subcapsular low-density lesion measuring 7 mm superiorly, likely incidental. ??Nonspecific. Stomach and duodenum: ??Small hiatal hernia. ??Stomach and duodenum otherwise unremarkable. Gallbladder: ??Partially filled and grossly unremarkable. Pancreas grossly unremarkable. Liver: No evidence of intrahepatic biliary dilatation or mass. ??Portal vein patent. No mesenteric lymphadenopathy or evidence of small bowel obstruction. No free fluid or free air. No evidence of retroperitoneal lymphadenopathy. No evidence of an abdominal aortic aneurysm. ??Moderate atherosclerosis. Scattered fecal material and gas throughout the colon without evidence of mass or dilatation. Appendix not inflamed. Pelvis: ??Urinary bladder and rectum are unremarkable. On bone windows, no evidence of suspicious skeletal lesion or acute compression fracture deformity. Limited evaluation of the lower thorax demonstrates no acute abnormality. ===== Procedure Note Isaías Jones MD - 03/05/2023 EXAMINATION: CT ABDOMEN AND PELVIS WITH CONTRAST EXAM DATE/TIME: 03/05/2023 3:12 PM REASON FOR EXAM: Abdominal pain, acute, nonlocalized COMPARISON: 11/09/2022 TECHNIQUE: Axial imaging of the abdomen and pelvis was obtained incorticomedullary and excretory phase after 100 mL Isovue-370 was injected.Oral contrast was not administered. Dose lowering technique was used for this study which may include, but isnot limited to, dose reduction techniques, automated exposure control, use of iterativereconstruction and ALARA (As low As Reasonably Achievable)/Image Gently techniques. FINDINGS: Abdomen: Adrenal glands: Unremarkable. Kidneys: Chronic right hydronephrosis and renal cortical atrophycompatible with chronic obstructive uropathy, grossly stable. There isurothelial thickening proximally, pyelitis and urinary tract infection sonido concern. No definite signs of pyelonephritis. At least 3 interpolar and upper pole nonobstructive calculi on the right,the largest measuring 3 mm. No evidence of obstructive urolithiasis. Nonobstructive 3 mm interpolar calculus on the left. Spleen: Calcified granulomas indicate healed granulomatous disease.Stable subcapsular low-density lesion measuring 7 mm superiorly, likelyincidental. Nonspecific. Stomach and duodenum: Small hiatal hernia. Stomach and duodenumotherwise unremarkable. Gallbladder: Partially filled and grossly unremarkable. Pancreas grossly unremarkable. Liver: No evidence of intrahepatic biliary dilatation or mass. Portalvein patent. No mesenteric lymphadenopathy or evidence of small bowel obstruction. Nofree fluid or free air. No evidence of retroperitoneal lymphadenopathy. No evidence of an abdominal aortic aneurysm. Moderate atherosclerosis. Scattered fecal material and gas throughout the colon without evidence ofmass or dilatation. Appendix not inflamed. Pelvis: Urinary bladder and rectum are unremarkable. On bone windows, no evidence of suspicious skeletal lesion or acutecompression fracture deformity. Limited evaluation of the lower thorax demonstrates no acuteabnormality. ===== IMPRESSION:===== 1. Chronic right hydronephrosis and renal cortical atrophy compatiblewith chronic obstructive uropathy, grossly stable. There is urothelialthickening proximally, pyelitis and urinary tract infection is a concern.No definite signs of pyelonephritis. Clinical correlation and follow-uprecommended. 2. Multiple nonobstructing calculi bilaterally. 3. Small hiatal hernia. 4. Calcified granulomas of the spleen, stable. Stable 7 mm low-densitylesion of the superior subcapsular splenic, likely incidental. 5. No free fluid or free air. Appendix normal. 6. Moderate atherosclerosis. Referred By: Interpreted By: Isaías Jones MD, 03/05/2023 3:31 PM Yasmin Tomlin PA-C CT Final Resul t * CULTURE, BACTERIA, BLOOD (03/05/2023 2:23 PM PIT LABORER) SPEC DESCRIPTION BLOOD 03/05/2023 1:30 PM PIT LABORER [facility] SPECIAL REQUESTS NO SPECIAL REQUEST 03/05/2023 1:30 PM PIT LABORER [facility] CULTURE RESULT NO GROWTH 5 DAYS 03/10/2023 7:31 AM PIT LABORER [facility] BLOOD SPECIMEN OBTAINED FOR BLOOD CULTURE / Unknown 03/05/2023 2:23 PM PIT LABORER 03/05/2023 2:31 PM PIT LABORER Yasmin Tomlin PA-C MICROBIOLOGY - [facility]AL ORDE [facility] Final Result [facility] [address] [place] [address], [place] [phone] * CULTURE, BACTERIA, BLOOD (03/05/2023 2:09 PM PIT LABORER) SPEC DESCRIPTION BLOOD 03/05/2023 1:30 PM PIT LABORER [facility] SPECIAL REQUESTS NO SPECIAL REQUEST 03/05/2023 1:30 PM PIT LABORER [facility] CULTURE RESULT NO GROWTH 5 DAYS 03/10/2023 7:31 AM PIT LABORER [facility] BLOOD SPECIMEN OBTAINED FOR BLOOD CULTURE / Unknown 03/05/2023 2:09 PM PIT LABORER 03/05/2023 2:21 PM PIT LABORER Yasmin Tomlin PA-C MICROBIOLOGY - GENERAL ORDE RABLES Final Result Performing Organization Address City/[facility]/ZIP Co de Phone Number [facility] [address] [place] [address], [place] [phone] * LACTIC ACID W REFLEX (SEPSIS) (03/05/2023 2:09 PM PIT LABORER) LACTIC ACID VENOUS 1.1 0.4 - 2.0 MMOL/L 03/05/2023 2:50 PM PIT LABORER [facility] 03/05/2023 2:09 PM PIT LABORER Yasmin Tomlin PA-C LABORATORY Final Resul t Performing Organization Address [facility] Co de Phone Number [facility] [address] [place] [address], [place] [phone] * (ABNORMAL) COMPREHENSIVE METABOLIC PANEL (03/05/2023 2:09 PM PIT LABORER) GLUCOSE 222(H) 70 - 99 MG/DL 03/05/2023 2:50 PM PIT LABORER [facility] BUN 19(H) 7 - 18 MG/DL 03/05/2023 2:50 PM PIT LABORER [facility] CREATININE S/P/B 1.08(H) 0.55 - 1.02 MG/DL 03/05/2023 2:50 PM PIT LABORER [facility] SODIUM S/P/B 135(L) 136 - 145 MMOL/L 03/05/2023 2:50 PM [facility] POTASSIUM S/P/B 4.5 3.5 - 5.1 MMOL/L 03/05/2023 2:50 PM [facility] Comment:SLIGHT HEMOLYSIS, RE SULT MAY BE AFFECTED. CHLORIDE S/P/B 106 100 - 108 MMOL/L 03/05/2023 2:50 PM [facility] CO2 27.4 21 - 32 MMOL/L 03/05/2023 2:50 PM [facility] CALCIUM S/P/B 9.3 8.5 - 10.1 MG/DL 03/05/2023 2:50 PM [facility] BILIRUBIN TOTAL S/P/B 0.5 0.2 - 1.2 MG/DL 03/05/2023 2:50 PM [facility] Comment: THIS ASSAY IS NOT RECOMMENDED FOR PATIENTS UNDERGOING TREATMENT WITH ELTROMBOPAG DUE TO THE POTENTIAL FOR FALSELY ELEVATED RESULTS. TOTAL PROTEIN S/P/B 9.0(H) 6.4 - 8.2 G/DL 03/05/2023 2:50 PM [facility] ALBUMIN S/P/B 3.2(L) 3.4 - 5.0 G/DL 03/05/2023 2:50 PM [facility] AST 32 15 - 37 U/L 03/05/2023 2:50 PM [facility] Comment:SLIGHT HEMOLYSIS, RE SULT MAY BE AFFECTED. ALT 33 14 - 55 U/L 03/05/2023 2:50 PM [facility] ALKALINE PHOSPHATASE S/P/B 171(H) 50 - 136 U/L 03/05/2023 2:50 PM [facility] ANION GAP 1.6(L) 5 - 15 MMOL/L 03/05/2023 2:50 PM [facility] BUN CREATININE RATIO 17.6 6 - 26 03/05/2023 2:50 PM PIT LABORER [facility] A/G RATIO 0.6(L) 1.0 - 2.0 RATIO 03/05/2023 2:50 PM [facility] GFR ESTIMATE 62(L) >90 ML/MIN/1.7 3 M2 03/05/2023 2:50 PM PIT LABORER [facility] Comment: NOTE: eGFR is not calculated for patients <18 years of age. This is an estimated GFR calculation using the new CKD EPI creatinine equation without race and so does not require a correction factor for race. This estimated GFR should not be used for calculating drug doses. 03/05/2023 2:09 PM PIT LABORER Yasmin Tomlin PA-C LABORATORY Final Resul t [facility] [address] [place] [address], * (ABNORMAL) CBC W/DIFF AUTOMATED (03/05/2023 2:09 PM PIT LABORER) WBC 9.6 4.5 - 11.0 x10'3/uL 03/05/2023 2:27 PM [facility] RBC 4.15(L) 4.20 - 5.40 x10'6/uL 03/05/2023 2:27 PM PIT LABORER [facility] HGB 12.4 12.0 - 16.0 G/DL 03/05/2023 2:27 PM PIT LABORER [facility] HCT 36.4(L) 38.0 - 48.0 % 03/05/2023 2:27 PM [facility] MCV 87.7 81.0 - 99.0 FL 03/05/2023 2:27 PM [facility] MCH 29.9 27.0 - 31.0 PG 03/05/2023 2:27 PM [facility] MCHC 34.1 32.0 - 36.0 G/DL 03/05/2023 2:27 PM [facility] RDW 12.9 11.5 - 14.5 % 03/05/2023 2:27 PM [facility] PLT 322 130 - 400 x10'3/uL 03/05/2023 2:27 PM [facility] MPV 11.3 9.3 - 12.2 FL 03/05/2023 2:27 PM [facility] DIFFERENTIAL TYPE AUTOMATED DIFFERENTIAL 03/05/2023 2:27 PM [facility] NEUTROPHILS % 66.9 % 03/05/2023 2:27 PM [facility] LYMPHOCYTES % 27.0 % 03/05/2023 2:27 PM [facility] MONOCYTES % 4.4 % 03/05/2023 2:27 PM [facility] EOSINOPHILS 0.9 % 03/05/2023 2:27 PM [facility] BASOPHILS 0.5 % 03/05/2023 2:27 PM [facility] IMMATURE GRANS % 0.3 % 03/05/19 2:27 PM [facility] ABS. NEUTROPHILS TOTAL 6.41 1.80 - 7.70 x10'3/uL 03/05/2023 2:27 PM [facility] ABS. LYMPHOCYTES 2.59 1.00 - 4.80 x10'3/uL 03/05/2023 2:27 PM [facility] ABS. MONOCYTES 0.42 0.24 - 0.86 x10'3/uL 03/05/2023 2:27 PM [facility] ABS. EOSINOPHILS 0.09 0.04 - 0.36 x10'3/uL 03/05/2023 2:27 PM PIT LABORER [facility] ABS. BASOPHILS 0.05 0.01 - 0.08 x10'3/uL 03/05/2023 2:27 PM PIT LABORER [facility] ABS. IMMATURE GRANULOCYTES 0.03 0.00 - 0.49 x10'3/uL 03/05/2023 2:27 PM PIT LABORER [facility] 03/05/2023 2:09 PM PIT LABORER Yasmin Tomlin PA-C LABORATORY Final Resul t Performing Organization Address [facility] Co de Phone Number [facility] [address] [place] [address], * (ABNORMAL) CULTURE URINE (03/05/2023 1:55 PM PIT LABORER) SPEC DESCRIPTION URINE CLEAN CATCH 03/05/2023 4:19 PM PIT LABORER [facility] SPECIAL REQUESTS NO SPECIAL REQUEST 03/05/2023 4:19 PM [facility] CULTURE RESULT 10,000-49,0 00 COL/ML ENTEROCOCCU S SPECIES (A) 03/08/2023 7:28 AM PIT LABORER [facility] URINE SPECIMEN OBTAINED BY CLEAN CATCH PROCEDURE / Unknown 03/05/2023 1:55 PM PIT LABORER 03/05/2023 9:33 PM PIT LABORER Narrative Organism Antibiotic Method Susceptibility Enterococcus species AMPICILLIN JESSI (VITEK) <=2: Sensitive Enterococcus species NITROFURANTOIN JESSI (VITEK) <=16: Sensitive Enterococcus species GENT. SYNERGY SCREEN JESSI (VITEK) Resistant Enterococcus species PENICILLIN G JESSI (VITEK) 8: Sensitive Enterococcus species LEVOFLOXACIN JESSI (VITEK) >=8: Resistant Janneth MARIE MICROBIOLOGY - GENERAL ORDERA BLES Final Result [facility] [address] [place] [address], * (ABNORMAL) URINALYSIS (03/05/2023 1:55 PM PIT LABORER) SPECIMEN TYPE URINE CLEAN CATCH 03/05/2023 1:54 PM PIT LABORER [facility] COLOR (U) LIGHT YELLOW 03/05/2023 2:54 PM PIT LABORER [facility] TRANSPARENCY TURBID 03/05/2023 2:54 PM PIT LABORER [facility] SPECIFIC GRAVITY (U) 1.011 1.001 - 1.030 03/05/2023 2:54 PM PIT LABORER [facility] U PH 6.0 5.0 - 9.0 03/05/2023 2:54 PM PIT LABORER [facility] LEUKOCYTES (U) 500(A) NEGATIVE 03/05/2023 2:54 PM PIT LABORER [facility] NITRITES NEGATIVE NEGATIVE 03/05/2023 2:54 PM PIT LABORER [facility] PROTEIN RANDOM (U) 100(H) <30 MG/DL 03/05/2023 2:54 PM [facility] GLUCOSE (U) 100(A) NORMAL MG/DL 03/05/2023 2:54 PM PIT LABORER [facility] KETONES MG/DL (U) NEGATIVE NEGATIVE MG/DL 03/05/2023 2:54 PM PIT LABORER [facility] UROBILINOGEN NORMAL NORMAL MG/DL 03/05/2023 2:54 PM PIT LABORER [facility] BILIRUBIN (U) NEGATIVE NEGATIVE MG/DL 03/05/2023 2:54 PM [facility] BLOOD (U) 2+(A) NEGATIVE 03/05/2023 2:54 PM [facility] CULTURE & SENSITIVITY INDICATED? SPECIMEN SETUP FOR CULTURE 03/05/2023 2:54 PM PIT LABORER [facility] WBC/HPF >100(H) <6 /HPF 03/05/2023 2:54 PM PIT LABORER [facility] RBC/HPF 10(H) <6 /HPF 03/05/2023 2:54 PM PIT LABORER [facility] BACTERIA (U) RARE(A) NONE /HPF 03/05/2023 2:54 PM PIT LABORER [facility] SQUAMOUS EPITHELIALS RARE /HPF 03/05/2023 2:54 PM PIT LABORER [facility] URINE SPECIMEN OBTAINED BY CLEAN CATCH PROCEDURE / Unknown 03/05/2023 1:55 PM PIT LABORER us Yasmin Tomlin PA-C URINE ORDERABLES Final Resu lt [facility] [address] [place] [address], [place] [phone] documented in this encounter Visit Diagnoses Diagnosis UTI (urinary tract infection)- Primary Urinary tract infection, site not specified Pyelitis Pyelonephritis, unspecified documented in this encounter Admitting Diagnoses Diagnosis UTI (urinary tract infection) Urinary tract infection, site not specified documented in this encounter Administered Medications Inactive Administered Medications - up to 3 most recent administrations Medication Order MAR Action Action Date Dose Rate Site acetaminophen (TYLENOL) tablet 650 mg 650 mg, Oral, Every 6 hours PRN, Mild pain (Scale 1 - 3), Headaches, Fever, Starting on Sun03/05/23 at 1619, Until Sun03/09/23 at 1607, Maximum dose of acetaminophen is 4000 mg from all sources in 24 hours. Given 03/06/2023 11:31 PM PIT LABORER 650 mg amLODIPine (NORVASC) tablet 10 mg 10 mg, Oral, Nightly at bedtime, First dose on Sun03/05/23 at 2100, Until Discontinued Given 03/08/2023 8:17 PM PIT LABORER 10 mg Given 03/07/2023 9:16 PM PIT LABORER 10 mg Given 03/06/2023 8:20 PM PIT LABORER 10 mg atorvastatin (LIPITOR) tablet 20 mg 20 mg, Oral, Nightly at bedtime, First dose on Sun03/05/23 at 2100, Until Discontinued Given 03/08/2023 8:17 PM PIT LABORER 20 m g Given 03/07/2023 9:16 PM PIT LABORER 20 mg Given 03/06/2023 8:20 PM PIT LABORER 20 mg bisacodyl (DULCOLAX) suppository 10 mg 10 mg, Rectal, Daily as needed, Constipation, Starting on Sun03/05/23 at 1619, Until Sun03/09/23 at 1607 bisacodyl EC (DULCOLAX) tablet 5 mg 5 mg, Oral, Daily as needed, Constipation, Starting on Sun03/05/23 at 1619, Until Sun03/09/23 at 1607, Do not break, chew, or crush. cefTRIAXone (ROCEPHIN) 1 g in sodium chloride 0.9 % 50 mL IVPB 1 g, Intravenous, at 100 mL/hr, Once, 1 dose, On Sun03/05/23 at 1615 New Bag 03/05/2023 5:07 PM PIT LABORER 1 g 100 mL/hr cefTRIAXone (ROCEPHIN) 1 g in sodium chloride 0.9 % 50 mL IVPB 1 g, Intravenous, at 100 mL/hr, Every 24 hours, First dose on Sun03/06/23 at 1615, Until Discontinued New Bag 03/06/2023 4:11 PM PIT LABORER 1 g 100 mL/hr dextrose 10 % bolus infusion 125-250 mL 125-250 mL, Intravenous, Administer over 15 Minutes, As needed, Low Blood Sugar, Starting on Sun03/06/23 at 1701, Until Sun03/09/23 at 1607, If patient is verbally responsive and NPO [...] repeat until blood glucose reaches 70 mg/dL diphenhydrAMINE (BENADRYL) capsule 25 mg 25 mg, Oral, Every 6 hours PRN, Itching, Allergies, Starting on Sun03/06/23 at 1701, Until Sun03/07/23 at 1700 Given 03/07/2023 12:58 PM PIT LABORER 25 mg Given 03/06/2023 11:31 PM PIT LABORER 25 mg Given 03/06/2023 5:38 PM PIT LABORER 25 mg diphenhydrAMINE (BENADRYL) capsule 25 mg 25 mg, Oral, Every 6 hours PRN, Itching, Allergies, Starting on Sun03/07/23 at 2153, Until Sun03/08/23 at 2152 Given 03/08/2023 5:07 PM PIT LABORER 25 mg Given 03/07/2023 10:00 PM PIT LABORER 25 mg diphenhydrAMINE (BENADRYL) injection 25 mg 25 mg, Intravenous, Once, 1 dose, On Sun03/05/23 at 1600, For IV administration, give no faster than 25 mg/min. Given 03/05/2023 4:13 PM PIT LABORER 25 mg glucagon injection 1 mg 1 mg, Intramuscular, Once as needed, Other, Low blood sugar, 1 dose, Starting on Sun03/06/23 at 1701, Until Sun03/09/23 at 1607, If patient is verbally UNresponsive and no IV access with blood glucose less than 70 mg/dL. Do NOT repeat administration. glucose oral gel 32-64 mL 32-64 mL (15-30 g of dextrose), Oral, As needed, Low blood sugar, Starting on Sun03/06/23 at 1701, Until Sun03/09/23 at 1607, If patient is verbally responsive and taking thickened liquids or oral medications: Blood glucose less than 50 mg/dL - give 30 g of dextrose; repeat until blood glucose reaches 70 mg/dL Blood glucose 50-69 mg/dL - give 15 g of dextrose; repeat until blood glucose reaches 70 mg/dL 32 mL of glucose gel = 15 g of dextrose HYDROcodone-acetaminophen (NORCO) 5-325 MG tablet 1 tablet 1 tablet, Oral, Every 6 hours PRN, Moderate pain (Scale 4 - 7), Starting on Sun03/08/23 at 2233, Until Sun03/09/23 at 1607, Maximum dose of acetaminophen is 4000 mg from all sources in 24 hours. HYDROmorphone (DILAUDID) injection 0.5 mg 0.5 mg, Intravenous, Every 3 hours PRN, Moderate pain (Scale 4 - 7), Severe pain (Scale 8 - 10), Starting on Sun03/06/23 at 0140, Until Sun03/08/23 at 2233, Administer slowly over at least 2-3 minutes. Given 03/08/2023 5:07 PM PIT LABORER 0.5 mg Given 03/07/2023 9:22 PM PIT LABORER 0.5 mg Given 03/07/2023 12:58 PM PIT LABORER 0.5 mg HYDROmorphone (DILAUDID) injection 0.5 mg 0.5 mg, Intravenous, Every 3 hours PRN, Severe pain (Scale 8 - 10), Starting on Sun03/08/23 at 2233, Until Sun03/09/23 at 1607, Administer slowly over at least 2-3 minutes. insulin aspart protamine-insulin aspart (NOVOLOG 70/30) injection 60 Units 60 Units, Subcutaneous, Daily with supper, First dose (after last reorder) on Sun03/06/23 at 1700, Until Discontinued Given 03/08/2023 5:03 PM PIT LABORER 60 Units Right Arm Given 03/07/2023 5:22 PM PIT LABORER 60 Units Ri ght Arm Given 03/06/2023 5:38 PM PIT LABORER 60 Units Ri ght Lower Abdomen insulin aspart protamine-insulin aspart (NOVOLOG 70/30) injection 70 Units 70 Units, Subcutaneous, Daily with breakfast, First dose on Sun03/06/23 at 0800, Until Discontinued Given 03/09/2023 9:07 AM PIT LABORER 70 Units Right Arm Given 03/08/2023 9:41 AM PIT LABORER 70 Units Ri ght Arm Given 03/07/2023 8:37 AM PIT LABORER 70 Units Ri ght Arm insulin lispro (HUMALOG) injection 0-14 Units 0-14 Units, Subcutaneous, 3 times daily before meals, First dose on Sun03/05/23 at 1730, Until Discontinued, Blood Glucose (SENSITIVE Dosing): [Less than 70:? Initiate Hypoglycemia Standing Orders] [71-140: 0 units] [141-180: 2 units] [181-220: 4 units] [221-260: 6 units] [261-300: 8 units] [301-350: 10 units] [351-400: 12 units] [Greater than 400: 14 units and Call Physician] Given 03/08/2023 12:12 PM PIT LABORER 2 Units Left Arm Given 03/07/2023 12:52 PM PIT LABORER 4 Units L eft Arm Given 03/06/2023 5:38 PM PIT LABORER 2 Units Ri ght Lower Abdomen insulin lispro (HUMALOG) injection 0-7 Units 0-7 Units, Subcutaneous, Nightly at bedtime, First dose on Sun03/05/23 at 2100, Until Discontinued, Blood Glucose (SENSITIVE Dosing): [Less than 70:? Initiate Hypoglycemia Standing Orders] [71-180: ? 0 units] [181-220:? 2 units] [221-260:? 3 units] [261-300:? 4 units] [301-350:? 5 units] [351-400:? 6 units] [Greater than 400:? 7 units and Call Physician] Given 03/08/2023 8:17 PM PIT LABORER 3 Units Left Arm iopamidol (ISOVUE-370) 76 % injection 100 mL 100 mL, Intravenous, IMG once as needed, Contrast, 1 dose, Starting on Sun03/05/23 at 1518, Until Sun03/05/23 at 1518 Given 03/05/2023 3:18 PM PIT LABORER 100 mLs lisinopril (PRINIVIL) tablet 20 mg 20 mg, Oral, Every evening, First dose on Sun03/05/23 at 2100, Until DiscontinuedIndications:hypertension Given 03/08/2023 8:17 PM PIT LABORER 20 mg Given 03/07/2023 9:16 PM PIT LABORER 20 mg Given 03/06/2023 8:20 PM PIT LABORER 20 mg morphine injection 2 mg 2 mg, Intravenous, Once, 1 dose, On Sun03/05/23 at 1445 Given 03/05/2023 4:12 PM PIT LABORER 2 mg morphine injection 2 mg 2 mg, Intravenous, Every 3 hours PRN, Moderate pain (Scale 4 - 7), Severe pain (Scale 8 - 10), Starting on Sun03/05/23 at 1657, Until Sun03/06/23 at 0140 Given 03/05/2023 10:07 PM PIT LABORER 2 mg Given 03/05/2023 6:48 PM PIT LABORER 2 mg naLOXone (NARCAN) injection 0.4 mg 0.4 mg, Intravenous, As needed, Opioid reversal, Starting on Sun03/05/23 at 1622, Until Sun03/09/23 at 1607 ondansetron (ZOFRAN) injection 4 mg 4 mg, Intravenous, Once, 1 dose, On Sun03/05/23 at 1445, IV push over 2-5 minutes. Given 03/05/2023 4:13 PM PIT LABORER 4 mg pantoprazole EC (PROTONIX) tablet 20 mg 20 mg, Oral, Daily, First dose on Sun03/06/23 at 0900, Until Discontinued, Do not break, chew, or crush. Given 03/09/2023 7:56 AM PIT LABORER 20 mg Given 03/08/2023 9:41 AM PIT LABORER 20 mg Given 03/07/2023 8:30 AM PIT LABORER 20 mg phenazopyridine tablet 190 mg 190 mg, Oral, 3 times daily PRN, Pain, Starting on Sun03/05/23 at 1848, Until Sun03/09/23 at 1607, Give after meals. May discolor urine (orange/yellow); will stain fabric. Given 03/07/2023 9:16 PM PIT LABORER 190 mg Given 03/06/2023 7:54 AM PIT LABORER 190 mg Given 03/05/2023 9:58 PM PIT LABORER 190 mg piperacillin-tazobactam (ZOSYN) 3.375 g in sodium chloride 0.9 % 50 mL IVPB 3.375 g, Intravenous, Administer over 30 Minutes, Once, 1 dose, On Sun03/07/23 at 1500, Administer over 30 minutes. New Bag 03/07/2023 3:42 PM PIT LABORER 3.375 g 100 mL/hr piperacillin-tazobactam (ZOSYN) 3.375 g in sodium chloride 0.9 % 50 mL IVPB 3.375 g, Intravenous, Administer over 240 Minutes, Every 8 hours, First dose on Sun03/07/23 at 2100, Until Discontinued, Administer over 4 hours (extended infusion). New Bag 03/09/2023 7:56 AM PIT LABORER 3.375 g 12.5 mL/hr New Bag 03/08/2023 11:18 PM PIT LABORER 3.375 g 12.5 mL/hr New Bag 03/08/2023 2:01 PM PIT LABORER 3.375 g 12.5 mL/hr polyethylene glycol (GLYCOLAX) packet 1 packet 1 packet, Oral, Daily as needed, Constipation, Starting on Sun03/05/23 at 1619, Until Sun03/09/23 at 1607, Dissolve entire packet in 240 mL of water potassium chloride CR (K-TAB) tablet 40 mEq 40 mEq, Oral, Once, 1 dose, On Sun03/08/23 at 0830, Do not break, chew, or crush. Given 03/08/2023 9:40 AM PIT LABORER 40 mEq sodium chloride 0.9% bolus infusion 500 mL 500 mL, Intravenous, Administer over 60 Minutes, Once, 1 dose, On Sun03/05/23 at 1600 New Bag 03/05/2023 4:13 PM PIT LABORER 500 mLs sodium chloride 0.9% infusion at 50 mL/hr, Intravenous, Once, 1 dose, On Sun03/06/23 at 1400 New Bag 03/06/2023 4:53 PM PIT LABORER 50 mL/hr documented in this encounter Active and Recently Administered Medications Times are shown in PIT LABORER. Scheduled Medication Order 03/07/2023 03/08/2023 03/09/2023 amLODIPine (NORVASC) tablet 10 mg 10 mg, Oral, Nightly at bedtime, First dose on Sun03/05/23 at 2100, Until Discontinued 2115 (Given - Provider: AURA Solis) 2016 (Given - Provider: AURA Solis) atorvastatin (LIPITOR) tablet 20 mg 20 mg, Oral, Nightly at bedtime, First dose on Sun03/05/23 at 2100, Until Discontinued 2115 (Given - Provider: AURA Solis) 2016 (Given - Provider: AURA Solis) insulin aspart protamine-insulin aspart (NOVOLOG 70/30) injection 60 Units 60 Units, Subcutaneous, Daily with supper, First dose (after last reorder) on Sun03/06/23 at 1700, Until Discontinued 1721 (Given - Provider: Jayla Joe RN) 1702 (Given - Provider: Jayla Joe RN) insulin aspart protamine-insulin aspart (NOVOLOG 70/30) injection 70 Units 70 Units, Subcutaneous, Daily with breakfast, First dose on Sun03/06/23 at 0800, Until Discontinued 0837 (Given - Provider: Jayla Joe RN) 0941 (Given - Provider: Jayla Joe RN) 0907 (Given - Provider: Jayla Joe RN) insulin lispro (HUMALOG) injection 0-14 Units(Linked Group 1) 0-14 Units, Subcutaneous, 3 times daily before meals, First dose on Sun03/05/23 at 1730, Until Discontinued, Blood Glucose (SENSITIVE Dosing): [Less than 70:? Initiate Hypoglycemia Standing Orders] [71-140: 0 units] [141-180: 2 units] [181-220: 4 units] [221-260: 6 units] [261-300: 8 units] [301-350: 10 units] [351-400: 12 units] [Greater than 400: 14 units and Call Physician] 0602 (Not Given - Provider: Ana Aleman RN - Reason: Order parameters not met)1252 (Given - Provider: Jayla Joe RN)1522 (Not Given - Provider: Jayla Joe RN - Reason: Other - Comment: patient taking dinner insulin) 0647 (Not Given - Provider: Emelia Jain RN-LP - Reason: Order parameters not met - Comment: BGL 77)1212 (Given - Provider: Jayla Joe RN)1703 (Not Given - Provider: Jayla Joe RN - Reason: Patient/family declined) 0728 (Not Given - Provider: Jayla Joe RN - Reason: Order parameters not met)1148 (Not Given - Provider: Jayla Joe RN - Reason: Order parameters not met - Comment: BGL 139)1600 (Canceled Entry - Provider: Automatic Discharge Provider - Comment: Automatically canceled at discontinue of medication order) insulin lispro (HUMALOG) injection 0-7 Units(Linked Group 1) 0-7 Units, Subcutaneous, Nightly at bedtime, First dose on Sun03/05/23 at 2100, Until Discontinued, Blood Glucose (SENSITIVE Dosing): [Less than 70:? Initiate Hypoglycemia Standing Orders] [71-180: ? 0 units] [181-220:? 2 units] [221-260:? 3 units] [261-300:? 4 units] [301-350:? 5 units] [351-400:? 6 units] [Greater than 400:? 7 units and Call Physician] 2108 (Not Given - Provider: Emelia Jain RN-CHUY - Reason: Order parameters not met - Comment: BGL 125) 2016 (Given - Provider: AURA Solis) lisinopril (PRINIVIL) tablet 20 mg 20 mg, Oral, Every evening, First dose on Sun03/05/23 at 2100, Until Discontinued 2115 (Given - Provider: Emelia Jain RN-CHUY) 2016 (Given - Provider: Emelia Jain RN-CHUY) pantoprazole EC (PROTONIX) tablet 20 mg 20 mg, Oral, Daily, First dose on Sun03/06/23 at 0900, Until Discontinued, Do not break, chew, or crush. 0830 (Given - Provider: Jayla Joe RN) 0941 (Given - Provider: Jayla Joe RN) 0756 (Given - Provider: Jayla Joe RN) piperacillin-tazobacta m (ZOSYN) 3.375 g in sodium chloride 0.9 % 50 mL IVPB (COMPLETED) 3.375 g, Intravenous, Administer over 30 Minutes, Once, 1 dose, On Sun03/07/23 at 1500, Administer over 30 minutes. 1542 (New Bag - Provider: Jayla Joe RN)1619 (Infusion Stop Time - Provider: Jayla Joe RN) piperacillin-tazobacta m (ZOSYN) 3.375 g in sodium chloride 0.9 % 50 mL IVPB 3.375 g, Intravenous, Administer over 240 Minutes, Every 8 hours, First dose on Sun03/07/23 at 2100, Until Discontinued, Administer over 4 hours (extended infusion). 2122 (New Bag - Provider: AURA Solis) 0123 (Infusion Stop Time - Provider: AURA Solis)0512 (New Bag - Provider: AURA Solis)1110 (Infusion Stop Time - Provider: Jayla Joe RN)1401 (New Bag - Provider: Jayla Joe RN)2000 (Infusion Stop Time - Provider: Emelia Jain RN-LP)2318 (New Bag - Provider: Emelia Jain RN-LP) 0329 (Infusion Stop Time - Provider: Emelia Jain RN-LP)0756 (New Bag - Provider: Jayla Joe RN)1154 (Infusion Stop Time - Provider: Jayla Joe RN)1500 (Canceled Entry - Provider: Automatic Discharge Provider - Comment: Automatically canceled at discontinue of medication order) potassium chloride CR (K-TAB) tablet 40 mEq (COMPLETED) 40 mEq, Oral, Once, 1 dose, On Viky 03/08/23 at 0830, Do not break, chew, or crush. 0940 (Given - Provider: Jayla Joe RN) PRN Medication Order 03/07/2023 03/08/2023 03/09/2023 acetaminophen (TYLENOL) tablet 650 mg 650 mg, Oral, Every 6 hours PRN, Mild pain (Scale 1 - 3), Headaches, Fever, Starting on Sun03/05/23 at 1619, Until Sun03/09/23 at 1607, Maximum dose of acetaminophen is 4000 mg from all sources in 24 hours. bisacodyl (DULCOLAX) suppository 10 mg 10 mg, Rectal, Daily as needed, Constipation, Starting on Sun03/05/23 at 1619, Until Sun03/09/23 at 1607 bisacodyl EC (DULCOLAX) tablet 5 mg 5 mg, Oral, Daily as needed, Constipation, Starting on Sun03/05/23 at 1619, Until Sun03/09/23 at 1607, Do not break, chew, or crush. calcium carbonate (TUMS) chewable tablet 500 mg 500 mg, Oral, 2 times daily PRN, Indigestion, Heartburn, Starting on Sun03/05/23 at 1621, Until Sun03/09/23 at 1607 dextrose 10 % bolus infusion 125-250 mL 125-250 mL, Intravenous, Administer over 15 Minutes, As needed, Low Blood Sugar, Starting on Sun03/06/23 at 1701, Until Sun03/09/23 at 1607, If patient is verbally responsive and NPO [...] repeat until blood glucose reaches 70 mg/dL diphenhydrAMINE (BENADRYL) capsule 25 mg () 25 mg, Oral, Every 6 hours PRN, Itching, Allergies, Starting on Sun03/06/23 at 1701, Until Sun03/07/23 at 1700 1258 (Given - Provider: Jayla Joe RN) diphenhydrAMINE (BENADRYL) capsule 25 mg () 25 mg, Oral, Every 6 hours PRN, Itching, Allergies, Starting on Sun03/07/23 at 2153, Until Sun03/08/23 at 2152 2200 (Given - Provider: Emelia Jain RN-) 1707 (Given - Provider: Jayla Joe RN) glucagon injection 1 mg 1 mg, Intramuscular, Once as needed, Other, Low blood sugar, 1 dose, Starting on Sun03/06/23 at 1701, Until Sun03/09/23 at 1607, If patient is verbally UNresponsive and no IV access with blood glucose less than 70 mg/dL. Do NOT repeat administration. glucose oral gel 32-64 mL 32-64 mL (15-30 g of dextrose), Oral, As needed, Low blood sugar, Starting on Sun03/06/23 at 1701, Until Sun03/09/23 at 1607, If patient is verbally responsive and taking thickened liquids or oral medications: Blood glucose less than 50 mg/dL - give 30 g of dextrose; repeat until blood glucose reaches 70 mg/dL Blood glucose 50-69 mg/dL - give 15 g of dextrose; repeat until blood glucose reaches 70 mg/dL 32 mL of glucose gel = 15 g of dextrose HYDROcodone-acetaminophen (NORCO) 5-325 MG tablet 1 tablet 1 tablet, Oral, Every 6 hours PRN, Moderate pain (Scale 4 - 7), Starting on Sun03/08/23 at 2233, Until Sun03/09/23 at 1607, Maximum dose of acetaminophen is 4000 mg from all sources in 24 hours. HYDROmorphone (DILAUDID) injection 0.5 mg (CANCELED) 0.5 mg, Intravenous, Every 3 hours PRN, Moderate pain (Scale 4 - 7), Severe pain (Scale 8 - 10), Starting on Sun03/06/23 at 0140, Until Sun03/08/23 at 2233, Administer slowly over at least 2-3 minutes. 1258 (Given - Provider: Jayla Joe RN)2121 (Given - Provider: Emelia Jain RN-LP) 170 (Given - Provider: Jayla Joe RN) HYDROmorphone (DILAUDID) injection 0.5 mg 0.5 mg, Intravenous, Every 3 hours PRN, Severe pain (Scale 8 - 10), Starting on Sun03/08/23 at 2233, Until Sun03/09/23 at 1607, Administer slowly over at least 2-3 minutes. naLOXone (NARCAN) injection 0.4 mg 0.4 mg, Intravenous, As needed, Opioid reversal, Starting on Sun03/05/23 at 1622, Until Sun03/09/23 at 1607 phenazopyridine tablet 190 mg 190 mg, Oral, 3 times daily PRN, Pain, Starting on Sun03/05/23 at 1848, Until Sun03/09/23 at 1607, Give after meals. May discolor urine (orange/yellow); will stain fabric. 2115 (Given - Provider: Emelia Jain RN-CHUY) polyethylene glycol (GLYCOLAX) packet 1 packet 1 packet, Oral, Daily as needed, Constipation, Starting on Sun03/05/23 at 1619, Until Sun03/09/23 at 1607, Dissolve entire packet in 240 mL of water Linked Groups Order Group 1: insulin lispro (HUMALOG) injection 0-14 UnitsJump to med 0-14 Units, Subcutaneous, 3 times daily before meals, First dose on Sun03/05/23 at 1730, Until Discontinued, Blood Glucose (SENSITIVE Dosing): [Less than 70:? Initiate Hypoglycemia Standing Orders] [71-140: 0 units] [141-180: 2 units] [181-220: 4 units] [221-260: 6 units] [261-300: 8 units] [301-350: 10 units] [351-400: 12 units] [Greater than 400: 14 units and Call Physician] And insulin lispro (HUMALOG) injection 0-7 UnitsJump to med 0-7 Units, Subcutaneous, Nightly at bedtime, First dose on Sun03/05/23 at 2100, Until Discontinued, Blood Glucose (SENSITIVE Dosing): [Less than 70:? Initiate Hypoglycemia Standing Orders] [71-180: ? 0 units] [181-220:? 2 units] [221-260:? 3 units] [261-300:? 4 units] [301-350:? 5 units] [351- 400:? 6 units] [Greater than 400:? 7 units and Call Physician] documented in this encounter Additional Health Concerns Assessment Noted Time PHQ-9 Depression Total Score: 0 03/08/19 22 9:30 AM PIT LABORER documented as of this encounter Care Teams Lead Systems Developer Relationship Specialty Start Date End Date Yasmin Segura II, MD [address] [place] [address] PCP - General FAMILY PRACTICE 03/09/21 [place] [address] [place] [address] PODIATRY/SURGERY 05/05/22 documented as of this encounter
--- OUTSIDE RECORDS SUMMARY | 2024-03-02 22:22 | XMS_ITS | Encounter Summary ---
Author Organization [facility] Address [address] [place] [address]. [place] [address] [place] [address] Care Team Providers Care X Ray Operator Name Role Phone Colton SILVEIRA MD, Abiodun Rushing Primary Care Provider Victoriano Langston MD Unavailable [phone] Reason for Visit * Reason Onset Date Comments Medication Problem 06/15/2023 Encounter Details Date Type Department Care Team (Late st Contact Info) Description 06/15/2023 Telephone [facility] Family Medicine - [place] [address] [place] [address] Abiodun Segura II, MD [address] [place] [address] Medication Problem Social History Tobacco Use Types Packs/Day Years Used Date Smoking Tobacco: Never Smokeless Tobacco: Never Alcohol Use Standard Drinks/Week Comments Not Currently 0 (1 standard drink = 0.6 oz pur e alcohol) few times per year [facility] Utilities Answer Date Recorded In the past 12 months has [employer], gas, oil, or water company threatened to [...] slept in a half-way (including now)? No 03/06/2023 Comments No Sex [...] in this encounter Progress Notes * Conchita Brandon 06/15/2023 11:21 AM CDT Pt called and stated that she is not going out of town but actually she just came back from being out of town. Pt states she left her meds in [place] at the hotel they were staying at * Yg Diaz MA - 06/15/2023 11:11 AM CDT Patient is requesting for Rx to be sent to her pharmacy so that she can call the pharmacy and have it transferred to the location is at out of town. Tried to get the pharmacy from out of town but shewants it sent to her pharmacy and she will call them to get it transferred. Pls and thank you. lisinopril (PRINIVIL) 20 MG tablet amLODIPine (NORVASC) 10 MG tablet simvastatin (ZOCOR) 40 MG tablet linaCLOtide (LINZESS) capsule 145 mcg cyclobenzaprine (FLEXERIL) tablet 10 mg [facility] [address] [place] [address] * Conchita Mancilla - 06/15/2023 10:51 AM CDT Yes I mentioned that to the Pt and said the same thing and she wants it sent to this pharmacy. Onceit is sent there, she can request the transfer of pharmacy if she likes * Conchita Mancilla - 06/15/2023 10:18 AM CDT Pt called stating she is out of town and left these meds at home Will you refill? lisinopril (PRINIVIL) 20 MG tablet amLODIPine (NORVASC) 10 MG tablet simvastatin (ZOCOR) 40 MG tablet linaCLOtide (LINZESS) capsule 145 mcg cyclobenzaprine (FLEXERIL) tablet 10 mg [facility] [address] [place] [address] [place] [address] [facility] [address] documented in this encounter Plan of Treatment Upcoming Encounters Date Type Department Care Team (Late st Contact Info) Description 03/14/2024 11:45 AM WIRE TESTER Office Visit [facility] [address] Marvin Mckeon MD [facility] [address] [place], [place] [id number] 03/20/2024 11:30 AM WIRE TESTER Office Visit [facility] Family Medicine - West [address] [place] [phone] Abiodun Segura II, MD [address] [place], [place] [id number] documented as of this encounter Goals Goal Patient Goal Type Associated Problems Recent Progress Patient-Stated? Author Family - family caregiver with be involved in care transitions and discharge planning Lifestyle No Natty Cheek, RN documented as of this encounter Visit Diagnoses Not on filedocumented in this encounter Additional Health Concerns Assessment Noted Time PHQ-9 Depression Total Score: 0 03/08/19 9:30 AM WIRE TESTER documented as of this encounter Care Teams X Ray Operator Relationship Specialty Start Date End Date Abiodun Segura II, MD [address] [place] [address] PCP - General FAMILY PRACTICE 03/09/21 [place] [address] [place] [address] PODIATRY/SURGERY 05/05/22 documented as of this encounter
--- OUTSIDE RECORDS SUMMARY | 2024-03-02 22:22 | XMS_ITS | Encounter Summary ---
Author Organization [facility] Address [address] [place] [address]. [place], [place] [address] [place] [address] Care Team Providers Care Linesperson Name Role Phone Colton SILVEIRA MD, Abiodun Rushing Primary Care Provider Victoriano Langston MD Unavailable [phone] Encounter Details Date Type Department Care Team (Latest Contact Info) Description 04/24/2023 Scan HEALTH INFO SRVCS Scanned, Doc Med Group Social History Tobacco Use Types Packs/Day Years Used Date Smoking Tobacco: Never Smokeless Tobacco: Never Alcohol Use Standard Drinks/Week Comments Not Currently 0 (1 standard drink = 0.6 oz pur e alcohol) few times per year [facility] Utilities Answer Date Recorded In the past 12 months has [facility] [employer], gas, oil, or water [employer] threatened to shut off services in your [...] Recorded Patient Health Questionnaire-2 Score 1 03/05/2023 [facility] - Occupational [...] in a intermediate (including now)? No 03/06/2023 Comments No Sex [...] 3:39 PM Teresa Ceo RN Active * Because of a physical, [...] st Contact Info) Description 03/14/2024 11:45 AM LIFE SPECIALIST Office Visit [facility] [address] Marvin Mckeon MD [facility] [address] [place] [address] 03/20/2024 11:30 AM LIFE SPECIALIST Office Visit [facility] Family Medicine - [place] [address] [place] [phone] Abiodun Segura II, MD [address] [place] [address] documented as of this encounter Goals Goal Patient Goal Type Associated Problems Recent Progress Patient-Stated? Author Family - family caregiver with be involved in care transitions and discharge planning Lifestyle No Natty Cheek, RN documented as of this encounter Visit Diagnoses Not on filedocumented in this encounter Additional Health Concerns Assessment Noted Time PHQ-9 Depression Total Score: 0 03/08/19 9:30 AM LIFE SPECIALIST documented as of this encounter Care Teams Linesperson Relationship Specialty Start Date End Date Abiodun Segura II, MD [address] [place] [address] PCP - General FAMILY PRACTICE 03/09/21 [place] [address] [place] [address] PODIATRY/SURGERY 05/05/22 documented as of this encounter
--- OUTSIDE RECORDS SUMMARY | 2024-03-02 22:23 | XMS_ITS | Encounter Summary ---
Author Organization [facility] Address [address] [place] [address]. [place] [address] [place] [address] Care Team Providers Care [employer] Consultant Name Role Phone Colton SILVEIRA MD, Abiodun Rushing Primary Care Provider Victoriano Langston MD Unavailable [phone] Reason for Visit * Reason Onset Date Comments Refill Request 12/05/2022 Encounter Details Date Type Department Care Team (Late st Contact Info) Description 12/05/2022 Telephone [facility] Family Medicine - [place] [address] [place] [address] Abiodun Segura II, MD [address] [place] [address] Refill Request Social History Tobacco [...] Date Recorded Patient Health Questionnaire-2 Score 0 05/05/2022 [facility] - [...] st Contact Info) Description 03/14/2024 11:45 AM GRADUATE INTERNSHIP Office Visit [facility] [address] [facility] [place] [address] 03/20/2024 11:30 AM GRADUATE INTERNSHIP Office Visit [facility] Family Medicine - [place] [address] [place] [phone] Abiodun Segura II, MD [address] [place] [address] documented as of this encounter Goals Goal Patient Goal Type Associated Problems Recent Progress Patient-Stated? Author Family - family caregiver with be involved in care transitions and discharge planning Lifestyle No Natty Cheek, RN documented as of this encounter Visit Diagnoses Diagnosis Type 2 diabetes mellitus with diabetic neuropathic arthropathy, with long-term current use of insulin ([facility])- Primary documented in this encounter Additional Health Concerns Assessment Noted Time PHQ-9 Depression Total Score: 0 03/08/19 9:30 AM GRADUATE INTERNSHIP documented as of this encounter Care Teams [employer] Consultant Relationship Specialty Start Date End Date Abiodun Segura II, MD [address] [place] [address] PCP - General FAMILY PRACTICE 03/09/21 [place] [address] [place] [address] PODIATRY/SURGERY 05/05/22 documented as of this encounter
--- OUTSIDE RECORDS SUMMARY | 2024-03-02 22:23 | XMS_ITS | Encounter Summary ---
Author Organization [facility] Address [address] [place] [address]. [place], [place] [id number] [place] [id number] Care Team Providers Care Therapeutic Recreation Leader Name Role Phone Colton SIVLEIRA MD, Abiodun Rushing Primary Care Provider Victoriano Langston MD Unavailable [phone] Encounter Details Date Type Department Care Team (Latest Contact Info) Description 12/12/2022 Scan HEALTH INFO [facility] Scanned, Doc Med Group Social History Tobacco Use Types Packs/Day Years Used Date Smoking Tobacco: Never Smokeless Tobacco: Never Alcohol Use Standard Drinks/Week Comments Not Currently 0 (1 standard drink = 0.6 oz pur e alcohol) few times per year [facility] Utilities Answer Date Recorded In the past 12 months has [facility] [employer], gas, oil, or water [employer] threatened to shut off services in your [...] place to sleep or slept in a group home (including now)? No 03/06/2023 Comments No [...] or making decisions? No 03/06/2023 3:39 PM SLOPE TENDER Teresa Amaya RN Active * Because of a physical, mental, or emotional condition, do you have serious difficulty concentrating, remembering, or making decisions? Answer Entry Date Author Status No 11/10/2022 3:37 AM CDT Sunshine Talamantes RN Active documented in this encounter Plan of Treatment Upcoming Encounters Date Type Department Care Team (Late st Contact Info) Description 03/14/2024 11:45 AM SLOPE TENDER Office Visit [facility] [phone] Marvin Mckeon MD [facility] [address] [place] [phone] 03/20/2024 11:30 AM SLOPE TENDER Office Visit [facility] - [place] [address] [place] [phone] Abiodun Segura II, MD [address] [place], [place] [phone] documented as of this encounter Goals Goal Patient Goal Type Associated Problems Recent Progress Patient-Stated? Author Family - family caregiver with be involved in care transitions and discharge planning Lifestyle No Natty Cheek RN documented as of this encounter Visit Diagnoses Not on filedocumented in this encounter Additional Health Concerns Assessment Noted Time PHQ-9 Depression Total Score: 0 03/08/19 9:30 AM SLOPE TENDER documented as of this encounter Care Teams Therapeutic Recreation Leader Relationship Specialty Start Date End Date Abiodun Segura II, MD [address] [place] [phone] PCP - General FAMILY PRACTICE 03/09/21 [place] [id number] [place] [address] PODIATRY/SURGERY 05/05/22 documented as of this encounter
--- OUTSIDE RECORDS SUMMARY | 2024-03-02 22:23 | XMS_ITS | Encounter Summary ---
Author Organization [facility] Address [address] [place] [address]. [place] [address] [place] [address] Care Team Providers Care Phlebotomy Tech Name Role Phone Colton SILVEIRA MD, Yasmin Rushing Primary Care Provider Victoriano Langston MD Unavailable [phone] Reason for Visit * Reason Comments Hospital Follow Up Patient presents for hospital follow up for kidney stones and ulcers Encounter Details Date Type Department Care Team (Late st Contact Info) Description 11/24/2022 7:30 AM CDT Office Visit [facility] Family Medicine - [address] [phone] Yasmin Valenzuela II, MD [address] [place] [id number] Hospital Follow Up (Patient presents for hospital follow up for kidney stones and ulcers) Social History Tobacco Use Types Packs/Day Years [...] Recorded Patient Health Questionnaire-2 Score 0 05/05/2022 [facility] [...] slept in a chcf (including now)? No 11/10/2022 Comments No Sex and Gender Information Value Date Recorded Sex Assigned at Female 12/17/2021 2:07 AM CDT Legal Sex Female 2:58 PM CDT Gender Identity Female 12/17/2021 2:07 AM CDT Sexual Orientation Straight 12/17/2021 2: 07 AM CDT documented as of this encounter Last Filed Vital Signs Vital Sign Reading Time Taken Comments Blood Pressure 132/76 11/24/2022 9:12 AM CDT Pulse 80 11/24/2022 7:47 AM CDT Temperature 36.6 ??C (97.9 ??F) 11/24/2022 7:47 AM CD T Respiratory Rate - - Oxygen Saturation 100% 11/24/2022 7:47 AM CDT Inhaled Oxygen Concentration - - Weight 87.4 kg (192 lb 9.6 oz) 11/24/2022 7:47 A M CDT Height - - Body Mass Index 31.09 11/09/2022 8:25 PM CDT documented in this encounter Functional [...] Notes * Yasmin Valenzuela II, MD - 11/24/2022 7:30 AM CDT Images from the original note were not included. [facility] [address] [address] OFFICE FOLLOW UP NOTE Encounter Date: 11/24/2022 Chief Complaint: Hospital Follow Up (Patient presents for hospital follow up for kidney stones and ulcers) History of Present Illness: 52-year-old female with history of diabetes, hypertension, hyperlipidemia, Charcot foot, history ofamputation of toes on left foot, constipation, blindness right eye, and gastric ulcer here for hospital follow-up after being admitted for abdominal pain with nausea and vomiting which was attributedto ongoing gastric ulcer symptoms which are now improved with treatment. Patient also has chronic right-sided hydronephrosis from history of kidney stones with stenting. Patient is going to call to schedule a follow-up with urology for reevaluation. She is otherwise doing well today and denies fevers, chills, dysuria. Patient is tolerating oral fluid and food. Review Of Systems: Positive ROS items as [...] other left toe(s) (HHS/HCC) (CMS/HCC) Atherosclerosis of [place] arteries of extremities with intermittent claudication, bilateral legs (CMS/HCC) Intractable abdominal pain Abdominal pain Intractable vomiting Past Medical History: Diagnosis Date Arthritis Charcot foot due to diabetes mellitus (HHS/HCC) (CMS/HCC) LEFT FOOT Constipation COVID-19 Diabetes mellitus (HHS/HCC) ([facility]/HCC) Diabetic neuropathy (HHS/HCC) ([facility]) Gastric ulcer High cholesterol Hypertension [...] of Health Financial Resource Strain: Low Risk Difficulty of Paying Living Expenses: Not hard at all Food Insecurity: No Food Insecurity Worried About Running Out of Food in the Last Year: Never true Ran Out of Food in the Last Year: Never true Transportation Needs: No Transportation Needs Lack of Transportation (Medical): No Lack of Transportation (Non-Medical): No Physical Activity: Not on file Stress: No Stress Concern Present Feeling of Stress : Only a little Social Connections: Not on file Intimate Partner Violence: Not At Risk Fear of Current or Ex-Partner: No Emotionally Abused: No Physically Abused: No Sexually Abused: No Housing Stability: Low Risk Unable to Pay for Housing in the [...] (two) timesdaily as needed. 60 tablet 0 dulaglutide (TRULICITY) 4.5 MG/0.5ML injection (PEN) Inject 4.5 mg into the skin once a week. Indications: Diabetes 1 pen. 0 HUMALOG MIX 75/25 (75-25) 100 UNIT/ML Suspension INJECT 60 UNITS SUBCUTANEOUSLY ONCE DAILY IN THE MORNING THEN 55 ONCE DAILY IN THE EVENING (Patient taking differently: Inject 55-65 Units into the skin see administration instructions. INJECT 65 UNITS SUBCUTANEOUSLY ONCE DAILY IN THE MORNING THEN 55ONCE DAILY IN THE EVENING) 40 mL 2 Insulin Syringe-Needle U-100 (INSULIN SYRINGE 1CC/30GX5/16 ) [...] Amoxicillin Rash Penicillins Rash Objective: Filed Vitals: 11/24/22 0747 11/24/22911 BP: (!) 148/86 132/76 Pulse: 80 Temp: 97.9 ??F (36.6 ??C) TempSrc: Temporal SpO2: 100% Weight: 87.4 kg (192 lb 9.6 oz) Nursing note reviewed. Physical Exam Vitals and [...] Breath sounds: Normal breath sounds. Abdominal: General: Abdomen is flat. Bowel sounds are normal. Palpations: Abdomen is soft. Tenderness: There is no abdominal tenderness. Musculoskeletal: Cervical back: Normal range of motion and neck supple. No rigidity. Comments: Exam is unchanged from previous exams. Skin: General: Skin is warm and dry. Neurological: Mental Status: She is alert and oriented to person, place, and time. Psychiatric: Mood and Affect: Mood normal. Behavior: Behavior normal. Thought Content: Thought content normal. Judgment: Judgment normal. Labs: Results for orders placed or performed during the hospital encounter of 11/09/22 XR CHEST PORTABLE Narrative Portable chest INDICATION: Abdominal pain. Comparison is October 11, 2022. TECHNIQUE: Single AP chest film. FINDINGS: Heart size and pulmonary vasculature are normal. The lungs are clear. No pleural fluid orpneumothorax. No bony abnormality. Impression IMPRESSION: No active disease. Referred By: Interpreted By: Oj Kang MD, 11/09/2022 10:01 PM CBC W/DIFF AUTOMATED Result Value Ref Range WBC 10.7 4.5 - 11.0 x10'3/uL RBC 4.46 4.20 - 5.40 x10'6/uL HGB 13.5 12.0 - 16.0 G/DL HCT 39.9 38.0 - 48.0 % MCV 89.5 81.0 - 99.0 FL MCH 30.3 27.0 - 31.0 PG MCHC 33.8 32.0 - 36.0 G/DL RDW 13.1 11.5 - 14.5 % PLT 325 130 - 400 x10'3/uL MPV 11.3 9.3 - 12.2 FL DIFFERENTIAL TYPE AUTOMATED DIFFERENTIAL NEUTROPHILS 72.1 % LYMPHOCYTES 21.0 % MONOCYTES 5.4 % EOSINOPHILS 0.6 % BASOPHILS 0.5 % IMMATURE GRANS 0.4 % ABS. NEUTROPHILS TOTAL 7.73 (H) 1.80 - 7.70 x10'3/uL ABS. LYMPHOCYTES 2.25 1.00 - 4.80 x10'3/uL ABS. MONOCYTES 0.58 0.24 - 0.86 x10'3/uL ABS. EOSINOPHILS 0.06 0.04 - 0.36 x10'3/uL ABS. BASOPHILS 0.05 0.01 - 0.08 x10'3/uL ABS. IMMATURE GRANULOCYTES 0.04 0.00 - 0.49 x10'3/uL COMPREHENSIVE METABOLIC PANEL Result Value Ref Range GLUCOSE 209 (H) 70 - 99 MG/DL BUN 18 7 - 18 MG/DL CREATININE S/P/B 1.14 (H) 0.55 - 1.02 MG/DL SODIUM S/P/B 134 (L) 136 - 145 MMOL/L POTASSIUM S/P/B 3.8 3.5 - 5.1 MMOL/L CHLORIDE S/P/B 99 (L) 100 - 108 MMOL/L CO2 28.5 21 - 32 MMOL/L CALCIUM S/P/B 9.7 8.5 - 10.1 MG/DL BILIRUBIN TOTAL S/P/B 0.5 0.2 - 1.2 MG/DL TOTAL PROTEIN S/P/B 9.4 (H) 6.4 - 8.2 G/DL ALBUMIN S/P/B 3.8 3.4 - 5.0 G/DL AST 18 15 - 37 U/L ALT 29 14 - 55 U/L ALKALINE PHOSPHATASE S/P/B 149 (H) 50 - 136 U/L ANION GAP 6.5 5 - 15 MMOL/L BUN CREATININE RATIO 15.8 6 - 26 A/G RATIO 0.7 (L) 1.0 - 2.0 RATIO GFR ESTIMATE 58 (L) >90 ML/MIN/1.73 M2 LIPASE Result Value Ref Range LIPASE 25 13 - 75 UNITS/L URINALYSIS WI REFLEX TO CULTURE Specimen: URINE, CLEAN CATCH Result Value Ref Range Specimen Type URINE CLEAN CATCH COLOR (U) COLORLESS TRANSPARENCY CLEAR SPECIFIC GRAVITY (U) 1.037 (H) 1.001 - 1.030 U PH 6.0 5.0 - 9.0 LEUKOCYTES (U) NEGATIVE NEGATIVE NITRITES NEGATIVE NEGATIVE PROTEIN RANDOM (U) 30 (H) <30 MG/DL GLUCOSE (U) NORMAL NORMAL MG/DL KETONES (U) NEGATIVE NEGATIVE MG/DL UROBILINOGEN NORMAL NORMAL MG/DL BILIRUBIN (U) NEGATIVE NEGATIVE MG/DL BLOOD (U) NEGATIVE NEGATIVE CULTURE & SENSITIVITY INDICATED? CULTURE IS NOT INDICATED WBC/HPF 1 <6 /HPF RBC/HPF 2 <6 /HPF SQUAMOUS EPITHELIALS RARE /HPF BASIC METABOLIC PANEL Result Value Ref Range GLUCOSE 111 (H) 70 - 99 MG/DL BUN 14 7 - 18 MG/DL CREATININE S/P/B 0.89 0.55 - 1.02 MG/DL SODIUM S/P/B 138 136 - 145 MMOL/L POTASSIUM S/P/B 3.7 3.5 - 5.1 MMOL/L CHLORIDE S/P/B 107 100 - 108 MMOL/L CO2 25.6 21 - 32 MMOL/L CALCIUM S/P/B 8.5 8.5 - 10.1 MG/DL ANION GAP 5.4 5 - 15 MMOL/L BUN CREATININE RATIO 15.7 6 - 26 GFR ESTIMATE 78 (L) >90 ML/MIN/1.73 M2 MAGNESIUM Result Value Ref Range MAGNESIUM 1.7 (L) 1.8 - 2.4 MG/DL BASIC METABOLIC PANEL Result Value Ref Range GLUCOSE 88 70 - 99 MG/DL BUN 12 7 - 18 MG/DL CREATININE S/P/B 1.02 0.55 - 1.02 MG/DL SODIUM S/P/B 141 136 - 145 MMOL/L POTASSIUM S/P/B 4.1 3.5 - 5.1 MMOL/L CHLORIDE S/P/B 106 100 - 108 MMOL/L CO2 30.5 21 - 32 MMOL/L CALCIUM S/P/B 10.0 8.5 - 10.1 MG/DL ANION GAP 4.5 (L) 5 - 15 MMOL/L BUN CREATININE RATIO 11.8 6 - 26 GFR ESTIMATE 67 (L) >90 ML/MIN/1.73 M2 CBC W/DIFF AUTOMATED Result Value Ref Range WBC 10.9 4.5 - 11.0 x10'3/uL RBC 3.99 (L) 4.20 - 5.40 x10'6/uL HGB 11.9 (L) 12.0 - 16.0 G/DL HCT 36.4 (L) 38.0 - 48.0 % MCV 91.2 81.0 - 99.0 FL MCH 29.8 27.0 - 31.0 PG MCHC 32.7 32.0 - 36.0 G/DL RDW 13.1 11.5 - 14.5 % PLT 300 130 - 400 x10'3/uL MPV 11.6 9.3 - 12.2 FL NEUTROPHILS 60.0 % LYMPHOCYTES 33.0 % MONOCYTES 5.0 % EOSINOPHILS 2.0 % ABS. LYMPHOCYTES 3.60 1.00 - 4.80 x10'3/uL ABS. NEUTROPHILS TOTAL 6.53 1.80 - 7.70 x10'3/uL ABS. MONOCYTES 0.55 0.24 - 0.86 x10'3/uL ABS. EOSINOPHILS 0.22 0.04 - 0.36 x10'3/uL DIFFERENTIAL TYPE AUTOMATED DIFFERENTIAL PLT EST. ADEQUATE CT ABD+PEL W IV CON ONLY Narrative CT abdomen and pelvis with contrast INDICATION: Nausea and vomiting. Abdominal pain. Comparison is 11/08/2022. Radiation dose reduction technique(s) were used. TECHNIQUE: Axial, coronal and sagittal images from the lung bases through the pubic symphysis with intravenous contrast. FINDINGS: The lung bases are clear. Normal heart size. Some excreted contrast material is noted in the gallbladder lumen following the recent CT study. The liver, spleen, pancreas and adrenals are unremarkable. The right kidney again shows severe hydronephrosis and delayed contrast excretion. The right ureteris nondilated and the findings could be due to a ureteropelvic junction obstruction. A 3 mm nonobstructing calculus is seen towards the upper pole. The left kidney shows a 3 mm nonobstructing calculus but is otherwise unremarkable. No upper abdominal or periaortic adenopathy. There is aortoiliac calcification. Scans the pelvis show no mass, lymphadenopathy or free fluid. Discectomy noted. The urinary bladderis unremarkable. The stomach and small bowel loops appear normal. No small bowel obstruction. No free air. The appendix is normal. Negative for colitis or diverticulitis. Bony structures are unremarkable. Impression IMPRESSION: No etiology for acute abdominal pain is demonstrated. No interval change in severe right hydronephrosis with delayed contrast excretion in the right kidney. Bilateral renal calculi. Referred By: Interpreted By: Oj Kang MD, 11/09/2022 11:43 PM NM RENAL SCAN W LASIX Narrative Examination: Renal scan Exam date/time: 11/11/2022 6:24 AM Reason For Exam: Chronic dilatation of the renal collecting systems, history of previous pyeloplasty. Comparison: 05/14/2006 Technique: After intravenous injection of 7.5 MCI of 99M technetium labeled MAG 3, posterior imaging was performed over the kidneys. Patient received and additional 20. mg of lasix 5 minutes after intravenous injection of radiopharmaceutical. Immediate blood flow imaging was performed at 2 seconds per frame for a total of 60 seconds. Posterior planar imaging was then performed at 1 minute per frame for a total of 30 minutes. Time activity curves were generated for the blood flow cure and the renal cortex curve. Findings: Initial angiographic phase images demonstrate fairly symmetrical perfusion of both kidneys. Split differential renal function attributes 52% of renal function to the left kidney and 48% to the right kidney. Type/activity renal clearance curves demonstrate prompt visualization of the filter tracer within the left collecting system. There is fairly good clearance of activity from left renal parenchyma with some accumulation of activity within a dilated proximal left collecting system. The T1/2 clearancetime of the left kidney is somewhat prolonged at 16.3 minutes, however this is primarily due to retained counts in the collecting system. Following administration of Lasix there is prompt washout of activity from the proximal left collecting system consistent with no evidence of significant mechanical obstruction. On the right side and there is also accumulation of tracer within a dilated proximal right renal collecting system. T1 half clearance time is prolonged at 33.8 minutes. With Lasix administration there is good washout of activity from the dilated proximal right collecting system again consistent with no evidence of significant mechanical obstruction. Impression =====IMPRESSION:===== 1. Persistent dilatation of the proximal collecting system right greater than left. There is however no evidence of significant residual mechanical obstruction. Ordered By: MICAH AGGARWAL Interpreted By: Taras Jerez MD, 11/13/2022 7:56 AM POCT glucose Result Value Ref Range GLUCOSE POC 205 (H) 70 - 99 mg/dL POCT glucose Result Value Ref Range GLUCOSE POC 132 (H) 70 - 99 mg/dL POCT glucose Result Value Ref Range GLUCOSE POC 131 (H) 70 - 99 mg/dL POCT glucose Result Value Ref Range GLUCOSE POC 215 (H) 70 - 99 mg/dL POCT glucose Result Value Ref Range GLUCOSE POC 169 (H) 70 - 99 mg/dL POCT glucose Result Value Ref Range GLUCOSE POC 188 (H) 70 - 99 mg/dL POCT glucose Result Value Ref Range GLUCOSE POC 138 (H) 70 - 99 mg/dL POCT glucose Result Value Ref Range GLUCOSE POC 144 (H) 70 - 99 mg/dL ECG 12 lead Narrative [place] Test Date: 2022-11-09 Pat Name: LENA YOUNGBLOOD Department: Room: [facility] Gender: Female [employer]: : 1970 Requested By: TAIWO FORBES Order Number: [id number] Reading MD: Alexei Rodríguez Measurements Intervals Lorraine Rate: 101 P: 7 MT: 169 QRS: 28 QRSD: 88 T: 56 QT: 321 QTc: 416 Interpretive Statements SINUS TACHYCARDIA NONSPECIFIC T-WAVE ABNORMALITY ABNORMAL RHYTHM ECG Compared to ECG 11/08/2022 10:31:14 Sinus rhythm no longer present T-wave abnormality still present Counseling The patient and patient's family was counseled regarding instructions for management, patient and family education and importance of compliance with treatment. Assessment: 1. Chronic superficial gastritis without bleeding 2. Renal disorder 3. Primary hypertension CBC W/DIFF AUTOMATED COMPREHENSIVE METABOLIC PANEL 4. Type 2 diabetes mellitus with diabetic neuropathic arthropathy, with long- term current use of insulin ([facility]/HCC) ([facility]) HEMOGLOBIN, GLYCOSYLATED Insulin Syringe-Needle U-100 (INSULIN SYRINGE 1CC/30GX5/16 ) 30G X 5/16 1 ML Misc 5. Charcot foot due to diabetes mellitus (HHS/HCC) ([facility]) 6. Hypercholesteremia LIPID PANEL 7. Acquired absence of other left toe(s) ([facility]) ([facility]) Plan: Orders Placed This Encounter Medications Insulin Syringe-Needle U-100 (INSULIN SYRINGE 1CC/30GX5/16 ) 30G X 5/16 1 ML Misc 1. Chronic superficial gastritis without bleeding Patient's symptoms are improved on Carafate and pantoprazole. We will continue both until gastroenterology evaluation later this month. Patient will follow-up with me in December as scheduled. 2. Renal disorder Patient has chronic right-sided hydronephrosis secondary to ureteral stricture. Patient to follow-up with urology for reevaluation and consider need for possible restenting in the future. 3. Primary hypertension Patient's blood pressure is at goal on recheck. We will continue lisinopril 20 mg daily and amlodipine 10 mg daily we will check CBC and metabolic panel to reassess renal function prior to follow-up in December. - CBC W/DIFF AUTOMATED; Future - COMPREHENSIVE METABOLIC PANEL; Future 4. Type 2 diabetes mellitus with diabetic neuropathic arthropathy, with long- term current use of insulin ([facility]) ([facility]) Patient is restarted Trulicity 4.5 mg weekly in addition to her daily insulin regimen. We will planto check hemoglobin A1c prior to follow-up in December. - HEMOGLOBIN, GLYCOSYLATED; Future - Insulin Syringe-Needle U-100 (INSULIN SYRINGE 1CC/30GX5/16 ) 30G X 5/16 1 ML Misc; Use as directed to inject insulin twice a day. Dispense: 200 each; Refill: 3 5. Charcot foot due to diabetes mellitus ([facility]/HCC) ([facility]) Patient continues to remain as mobile as possible and follows up with podiatry for ongoing foot care. 6. Hypercholesteremia Patient is tolerating simvastatin 40 mg daily well. We will continue current dose and we will recheck lipids for trend prior to follow-up in December. - LIPID PANEL; Future 7. Acquired absence of other left toe(s) (HHS/HCC) (CMS/HCC) Patient is doing well with no wounds at this time. Patient will follow-up with podiatry for ongoingfoot care and additional recommendations. I personally spent a total of 37 minutes on the day of the encounter. This includes veul-yt-kaam and wug-tbnj-ny-face time I provided on the day of the encounter & excludes time spent performing separately reportable services. There are no discontinued medications. YASMIN VALENZUELA MD 11/24/2022 Portions of this note were dictated using [employer] speech recognition software. Occasional wrong wordor sound-alike substitutions may have occurred due to the inherent limitations of voice recognition software. Please read the chart carefully and recognize, using context, where the substitutions may have occurred. documented in this encounter Plan of Treatment Upcoming Encounters Date Type Department Care Team (Late st Contact Info) Description 03/14/2024 11:45 AM [employer] Office Visit [facility] [phone] Marvin Mckeon MD [facility] [address] [place] [phone] 03/20/2024 11:30 AM [employer] Office Visit [facility] Family Medicine - [address] [phone] Yasmin Valenzuela II, MD [address] [place] [address] documented as of this encounter Goals Goal Patient Goal Type Associated Problems Recent Progress Patient-Stated? Author Family - family caregiver with be involved in care transitions and discharge planning Lifestyle No Natty Cheek, RN documented as of this encounter Results * (ABNORMAL) LIPID PANEL (02/03/2023 10:42 AM [employer]) CHOLESTEROL 187 <200 MG/DL 02/03/2023 11:[address] [facility] TRIGLYCERIDES 242(H) <150 MG/DL 02/03/2023 11:[address] [facility] HDL 43 >40.0 MG/DL 02/03/2023 11:[address] [facility] LDL (CALCULATED) 96 <100 MG/DL 02/03/2023 11:[address] [facility] NON HDL CHOLESTEROL 144(H) <130 MG/DL 02/03/2023 11:[address] [facility] CHOL/HDL RATIO 4.3 0.0 - 4.5 02/03/2023 11:[address] [facility] VLDL CALCULATION 48 5 - 55 MG/DL 02/03/2023 11:[address] [facility] LIPID INTERPRETATION 02/03/2023 11:[address] [facility] Comment: [facility] REPORT RECOMMENDATIONS: ?ADULT ?CHILD ??LOW RISK: ?CHOLESTEROL ? <200 ? <170 ?TRIGLYCERIDE ?<150 ?--- ?HDL ? >=60 ?--- ?LDL ? <100 ? <110 ??BORDERLINE: ?CHOLESTEROL ? 200-239 ?? 170-199 ?TRIGLYCERIDE ?150-199 ? --- ?HDL ?40-59 ?--- ?LDL ? 100-159 ?? 110-129 ??HIGH RISK: ?CHOLESTEROL ? >=240 ?>=200 ?TRIGLYCERIDE ?>=200 ? --- ?HDL ?<40 ?--- ?LDL ? >=160 ?>=130 02/03/2023 10:4 2 AM [employer] Yasmin Valenzuela II, MD LABORATORY Final R esult Performing Organization Address City/State/[facility] Co de Phone Number [facility] [address] [id number], * (ABNORMAL) COMPREHENSIVE METABOLIC PANEL (02/03/2023 10:42 AM [employer]) GLUCOSE 99 70 - 99 MG/DL 02/03/2023 11:[address] [facility] BUN 17 7 - 18 MG/DL 02/03/2023 11:[address] [facility] CREATININE S/P/B 1.11(H) 0.55 - 1.02 MG/DL 02/03/2023 11:[address] [facility] SODIUM S/P/B 138 136 - 145 MMOL/L 02/03/2023 11:[address] [facility] POTASSIUM S/P/B 3.6 3.5 - 5.1 MMOL/L 02/03/2023 11:[address] [facility] CHLORIDE S/P/B 105 100 - 108 MMOL/L 02/03/2023 11:[address] [facility] CO2 28.7 21 - 32 MMOL/L 02/03/2023 11:[address] [facility] CALCIUM S/P/B 9.3 8.5 - 10.1 MG/DL 02/03/2023 11:[address] [facility] BILIRUBIN TOTAL S/P/B 0.5 0.2 - 1.2 MG/DL 02/03/2023 11:[address] [facility] Comment: THIS ASSAY IS NOT RECOMMENDED FOR PATIENTS UNDERGOING TREATMENT WITH ELTROMBOPAG DUE TO THE POTENTIAL FOR FALSELY ELEVATED RESULTS. TOTAL PROTEIN S/P/B 8.9(H) 6.4 - 8.2 G/DL 02/03/2023 11:[address] [facility] ALBUMIN S/P/B 3.4 3.4 - 5.0 G/DL 02/03/2023 11:[address] [facility] AST 24 15 - 37 U/L 02/03/2023 11:[address] [facility] ALT 30 14 - 55 U/L 02/03/2023 11:[address] [facility] ALKALINE PHOSPHATASE S/P/B 155(H) 50 - 136 U/L 02/03/2023 11:[address] [facility] ANION GAP 4.3(L) 5 - 15 MMOL/L 02/03/2023 11:[address] [facility] BUN CREATININE RATIO 15.3 6 - 26 02/03/2023 11:[address] [facility] A/G RATIO 0.6(L) 1.0 - 2.0 RATIO 02/03/2023 11:[address] [facility] GFR ESTIMATE 60(L) >90 ML/MIN/1.7 3 M2 02/03/2023 11:[address] [facility] Comment: NOTE: eGFR is not calculated for patients <18 years of age. This is an estimated GFR calculation using the new CKD EPI creatinine equation without race and so does not require a correction factor for race. This estimated GFR should not be used for calculating drug doses. 02/03/2023 10:4 2 AM [employer] Yasmin Valenzuela II, MD LABORATORY Final R esult [facility] [address] [place] [address], [place] [phone] * CBC W/DIFF AUTOMATED (02/03/2023 10:42 AM [employer]) WBC 8.8 4.5 - 11.0 x10'3/uL 02/03/2023 11:[address] [facility] RBC 4.25 4.20 - 5.40 x10'6/uL 02/03/2023 11:[address] [facility] HGB 12.8 12.0 - 16.0 G/DL 02/03/2023 11:[address] [facility] HCT 38.6 38.0 - 48.0 % 02/03/2023 11:[address] [facility] MCV 90.8 81.0 - 99.0 FL 02/03/2023 11:[address] [facility] MCH 30.1 27.0 - 31.0 PG 02/03/2023 11:[address] [facility] MCHC 33.2 32.0 - 36.0 G/DL 02/03/2023 11:[address] [facility] RDW 13.1 11.5 - 14.5 % 02/03/2023 11:[address] [facility] PLT 288 130 - 400 x10'3/uL 02/03/2023 11:[address] [facility] MPV 11.5 9.3 - 12.2 FL 02/03/2023 11:[address] [facility] DIFFERENTIAL TYPE AUTOMATED DIFFERENTIAL 02/03/2023 11:[address] [facility] NEUTROPHILS % 61.5 % 02/03/2023 11:[address] [facility] LYMPHOCYTES % 32.2 % 02/03/2023 11:[address] [facility] MONOCYTES % 4.5 % 02/03/2023 11:[address] [facility] EOSINOPHILS 1.0 % 02/03/2023 11:[address] [facility] BASOPHILS 0.6 % 02/03/2023 11:[address] [facility] IMMATURE GRANS % 0.2 % 02/04/20 11:[address] [facility] ABS. NEUTROPHILS TOTAL 5.39 1.80 - 7.70 x10'3/uL 02/03/2023 11:[address] [facility] ABS. LYMPHOCYTES 2.82 1.00 - 4.80 x10'3/uL 02/03/2023 11:[address] [facility] ABS. MONOCYTES 0.39 0.24 - 0.86 x10'3/uL 02/03/2023 11:[address] [facility] ABS. EOSINOPHILS 0.09 0.04 - 0.36 x10'3/uL 02/03/2023 11:[address] [facility] ABS. BASOPHILS 0.05 0.01 - 0.08 x10'3/uL 02/03/2023 11:[address] [facility] ABS. IMMATURE GRANULOCYTES 0.02 0.00 - 0.49 x10'3/uL 02/03/2023 11:05 AM CONSULTANT INTERNSHIP [facility] 02/03/2023 10:4 2 AM CONSULTANT INTERNSHIP Yasmin Valenzuela II, MD LABORATORY Final R esult Performing Organization Address [facility] Co de Phone Number [facility] [address] [place] [address], * (ABNORMAL) HEMOGLOBIN, GLYCOSYLATED (02/03/2023 10:42 AM CONSULTANT INTERNSHIP) HGB A1C 9.1(H) <5.7 % 02/03/2023 11:32 AM CONSULTANT INTERNSHIP [facility] Comment: ADA GUIDELINES 2010 5.7 TO 6.4% INCREASED RISK OF DIABETES > OR = 6.5% CONSISTENT WITH DIABETES ESTIMATED AVG GLUCOSE 214 mg/dL 02/03/2023 11:32 AM CONSULTANT INTERNSHIP [facility] 02/03/2023 10:4 2 AM CONSULTANT INTERNSHIP Yasmin Valenzuela II, MD LABORATORY Final R esult Performing Organization Address [facility] Co de Phone Number [facility] [address] [place] [address], documented in this encounter Visit Diagnoses Diagnosis Chronic superficial gastritis without bleeding- Primary Atrophic gastritis without mention of hemorrhage Renal disorder Unspecified disorder of kidney and ureter Primary hypertension Unspecified essential hypertension Type 2 diabetes mellitus with diabetic neuropathic arthropathy, with long-term current use of insulin ([facility]) Charcot foot due to diabetes mellitus ([facility]/HCC) Type II or unspecified type diabetes mellitus with neurological manifestations, not stated as uncontrolled Hypercholesteremia Pure hypercholesterolemia Acquired absence of other left toe(s) ([facility] HHS/HCC) documented in this encounter Additional Health Concerns Assessment Noted Time PHQ-9 Depression Total Score: 0 03/08/19 22 9:30 AM CONSULTANT INTERNSHIP documented as of this encounter Care Teams Phlebotomy Tech Relationship Specialty Start Date End Date Yasmin Valenzuela II, MD [address] [place] [address] PCP - General FAMILY PRACTICE 03/09/21 [place] [address] [place] [address] PODIATRY/SURGERY 05/05/22 documented as of this encounter
--- OUTSIDE RECORDS SUMMARY | 2024-03-02 22:23 | XMS_ITS | Encounter Summary ---
Author Organization [facility] Address [address] [place] [address]. [place] [address] [place] [address] Care Team Providers Care Bridal Gown Fitter Name Role Phone Colton SILVEIRA MD, Abiodun Rushing Primary Care Provider Victoriano Langston MD Unavailable [phone] Encounter Details Date Type Department Care Team (Latest Contact Info) Description 11/24/2022 Travel Social History Tobacco Use Types Packs/Day [...] Recorded Patient Health Questionnaire-2 Score 0 05/05/2022 [facility] - Occupational [...] in a senior care (including now)? No 11/10/2022 Comments No Sex [...] st Contact Info) Description 03/14/2024 11:45 AM TRAIN PLANNER Office Visit [facility] [phone] [facility] [address] [place] [address] 03/20/2024 11:30 AM TRAIN PLANNER Office Visit [facility] Family [facility] - [place] [address] [place] [phone] Abiodun Segura II, MD [address] [place] [id number] documented as of this encounter Goals Goal Patient Goal Type Associated Problems Recent Progress Patient-Stated? Author Family - family caregiver with be involved in care transitions and discharge planning Lifestyle No Natty Cheek, RN documented as of this encounter Visit Diagnoses Not on filedocumented in this encounter Additional Health Concerns Assessment Noted Time PHQ-9 Depression Total Score: 0 03/08/19 22 9:30 AM TRAIN PLANNER documented as of this encounter Care Teams Bridal Gown Fitter Relationship Specialty Start Date End Date Abiodun Segura II, MD [address] [place] [address] PCP - General FAMILY PRACTICE 03/09/21 [place] [address] [place] [address] PODIATRY/SURGERY 05/05/22 documented as of this encounter
--- OUTSIDE RECORDS SUMMARY | 2024-03-02 22:23 | XMS_ITS | Encounter Summary ---
Author Organization [facility] Address [address] [place] [address]. [place] [address] [place] [address] Care Team Providers Care Store Consultant Name Role Phone Colton SILVEIRA MD, Abiodun Rushing Primary Care Provider Victoriano Langston MD Unavailable [phone] Encounter Details Date Type Department Care Team (Latest Contact Info) Description 11/09/2022 Travel Social History Tobacco Use Types Packs/Day [...] Recorded Patient Health Questionnaire-2 Score 0 05/05/2022 [facility] - Occupational [...] slept in a usp (including now)? No 11/10/2022 Comments No Sex [...] Answer Date of Assessment Author Status No 10/11/2022 11:33 PM CDAmanda Law RN Active * Are you blind or do you have serious difficulty seeing, even when wearing glasses? Answer Date of Assessment Author Status Yes 10/11/2022 11:33 PM CDT Amanda Qureshi RN Active * Do you have serious difficulty walking or climbing stairs? Answer Date of Assessment Author Status Yes 10/11/2022 11:33 PM Amanda Ballesteros RN Active * Do you have difficulty dressing or bathing? Answer Date of Assessment Author Status No 10/11/2022 11:33 PM Amanda Ballesteros RN Active * Because of a physical, mental, or emotional condition, do you have difficulty doing errands alone such as visiting a doctor's office or shopping? Answer Date of Assessment Author Status Yes 10/11/2022 11:38 PM Amanda Ballesteros RN Active documented as of this encounter Mental Status * Because of a physical, mental, or emotional condition, do you have serious difficulty concentrating, remembering, or making decisions? Answer Entry Date Author Status No 10/11/2022 11:33 PM Amanda Ballesteros RN Active documented in this encounter Plan of Treatment Upcoming Encounters Date Type Department Care Team (Late st Contact Info) Description 03/14/2024 11:45 AM MANAGER CREDIT Office Visit [facility] [phone] Marvin Mckeon MD [facility] [address] [place] [address] 03/20/2024 11:30 AM MANAGER CREDIT Office Visit [facility] Family [facility] - [place] [address] [place] [phone] Abiodun Segura II, MD [address] [place] [address] documented as of this encounter Goals Goal Patient Goal Type Associated Problems Recent Progress Patient-Stated? Author Family - family caregiver with be involved in care transitions and discharge planning Lifestyle No Natty Cheek, RN documented as of this encounter Visit Diagnoses Not on filedocumented in this encounter Additional Health Concerns Assessment Noted Time PHQ-9 Depression Total Score: 0 03/08/19 22 9:30 AM MANAGER CREDIT documented as of this encounter Care Teams Store Consultant Relationship Specialty Start Date End Date Abiodun Segura II, MD [address] [place] [address] PCP - General FAMILY PRACTICE 03/09/21 [place] [address] [place] [address] PODIATRY/SURGERY 05/05/22 documented as of this encounter
--- OUTSIDE RECORDS SUMMARY | 2024-03-02 22:23 | XMS_ITS | Encounter Summary ---
Author Organization [facility] Address [address] [place] [address]. [place] [address] [place] [address] Care Team Providers Care Engineer System Administrator Name Role Phone Colton SILVEIRA MD, Abiodun Rushing Primary Care Provider Victoriano Langston MD Unavailable [phone] Encounter Details Date Type Department Care Team (Latest Contact Info) Description 11/02/2022 Travel Social History Tobacco Use Types Packs/Day Years Used Date Smoking Tobacco: Never Smokeless Tobacco: Never Alcohol Use Standard Drinks/Week Comments Yes 0 (1 standard drink = 0.6 oz pur e alcohol) few times per year Humiliation, Afraid, Rape, and Kick questionnair e Answer Date Recorded Within the last year, have y ou been afraid of your partner or ex-partner? No 09/03/2022 Within the last year, have y ou been humiliated or emotionally abused in other ways by your partner or ex-partner? No Within the last year, have y ou been kicked, hit, slapped, or otherwise physically hurt by your partner or ex-partner? No 09/03/2022 Within the last year, have y ou been raped or forced to have any kind of sexual activity by your partner or ex-partner? No 09/03/2022 AUDIT-C Answer Date Recorded Q1: How often [...] care, and heating? Not hard at all 09/03/2022 PHQ-2 Answer Date Recorded Patient Health Questionnaire-2 Score 0 05/05/2022 [facility] - Occupational [...] the money to buy more. Never true 09/04/19 23 Within the past 12 months, t he food you bought just didn't last and you didn't have money to get more. Never true 09/03/2022 PRAPARE - Transportation Answer Date Re corded In the past 12 months, has l ack of transportation kept you from medical appointments or from getting medications? No 08/19 In the past 12 months, has l ack of transportation kept you from meetings, work, or from getting things needed for daily living? No 09/03/2022 Housing Stability Vital Sign Answer Raymon e Recorded In the last 12 months, was t here a time when you were not able to pay the mortgage or rent on time? No 09/03/2022 In the last 12 months, how many places have you lived? 1 09/03/2022 In the last 12 months, was t here a time when you did not have a steady place to sleep or slept in a long term (including now)? No 09/03/2022 Comments No Sex and Gender Information Value [...] 11:33 PM Amanda Ballesteros RN Active * Are you blind or do you have serious difficulty seeing, even when wearing glasses? Answer Date of Assessment Author Status Yes 10/11/2022 11:33 PM Amanda Ballesteros RN Active * Do you have serious [...] st Contact Info) Description 03/14/2024 11:45 AM AREA FORESTER Office Visit [facility] [phone] Marvin Mckeon MD [facility] [address] [place] [address] 03/20/2024 11:30 AM AREA FORESTER Office Visit [facility] Family [facility] - [place] [address] [place] [phone] Abiodun Segura II, MD [address] [place] [phone] documented as of this encounter Goals Goal Patient Goal Type Associated Problems Recent Progress Patient-Stated? Author Family - family caregiver with be involved in care transitions and discharge planning Lifestyle No Natty Cheek, RN documented as of this encounter Visit Diagnoses Not on filedocumented in this encounter Additional Health Concerns Assessment Noted Time PHQ-9 Depression Total Score: 0 03/08/19 22 9:30 AM AREA FORESTER documented as of this encounter Care Teams Engineer System Administrator Relationship Specialty Start Date End Date Abiodun Segura II, MD [address] [place] [address] PCP - General FAMILY PRACTICE 03/09/21 [place] [address] [place] [address] PODIATRY/SURGERY 05/05/22 documented as of this encounter
--- OUTSIDE RECORDS SUMMARY | 2024-03-02 22:23 | XMS_ITS | Encounter Summary ---
Author Organization [facility] Address [address] [place] [address]. [place] [address] [place] [address] Care Team Providers Care Sign Erector Name Role Phone Colton SILVEIRA MD, Abiodun Rushing Primary Care Provider Victoriano Langston MD Unavailable [phone] Reason for Visit * Auth/Cert (Routine) Specialty Diagnoses / Procedures Referred By Contac t Referred To Contact Diagnoses Peptic ulcer Epigastric abdominal pain peptic ulcer, epigastric pain Procedures UPPER GI ENDOSCOPY,DIAGNOSIS EGD Karlo Saldivar MD [address] [address] Phone: tel: fax: Referral ID Status Reason Start Date Expiration Date Visits Re quested Visits Authorized [id number] 1 1 Encounter Details Date Type Department Care Team (Late st Contact Info) Description 12/25/2022 11:00 AM MENU PLANNER - 12/25/2022 11:30 AM MENU PLANNER Surgery [facility] End[facility] [place], [place] [id number] Karlo Saldivar MD [address] [address] EGD Surgery Details Date/Time Status Location OR Service Patient Class Case Class Case Type Trauma Case? 12/25/2022 11:00 AM Posted [facility] 2 Gastroenterology Short Stay/Outpa tient Surgery No Panel 1 Procedure LRB Anes Op Region Wound Class Comments EGD N/A General Clean Contaminated normal Surgeon Surgeon Role Service Panel Karlo Saldivar MD Primary Gastroenterology 1 documented in this encounter Social History [...] Recorded Patient Health Questionnaire-2 Score 0 12/13/2022 [facility] [place] of Occupat ional Health - Occupational Stress [...] Sign Reading Time Taken Comments Blood Pressure 149/84 12/25/2022 10:36 AM MENU PLANNER Pulse 84 12/25/2022 10:36 AM MENU PLANNER Temperature 36 ??C (96.8 ??F) 12/25/2022 10:36 AM MENU PLANNER Respiratory Rate 20 12/25/2022 10:36 AM MENU PLANNER Oxygen Saturation 99% 12/25/2022 10:36 AM MENU PLANNER Inhaled Oxygen Concentration - - Weight 86.6 kg (191 lb) 12/15/2022 12:13 PM CDT Height 167.6 cm (5' 6 ) 12/15/2022 12:13 PM CDT Body Mass Index 30.83 12/15/2022 12:13 PM CDT documented in this [...] Segundo RN Active documented in this encounter Discharge Instructions * Attachments The following attachments cannot be sent through Care Everywhere. * Upper GI Endoscopy Discharge Instructions (Ukrainian) * General Anesthesia Discharge Instructions (Ukrainian) documented in this encounter Medications at Time [...] daily 90 tablet 1 3 06/15/19 24 ciprofloxacin (CIPRO) 500 MG tabletIndications:C ystitis Take 1 tablet (500 mg total) by mouth 2 (two) times daily for 7 days. 14 tablet 3 12/30/19 23 dulaglutide (TRULICITY) 4.5 MG/0.5ML injection (PEN)Indications:Di abetes Mellitus Inject 4.5 mg into the skin once a week. Indications: Diabetes 1 pen. 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 Use as instructed 200 strip 3 3 02/26/19 25 HUMALOG MIX 75/25 (75-25) 100 UNIT/ML SuspensionIndicatio ns:Type 2 diabetes mellitus with retinopathy, with long-term current use of insulin, macular edema presence unspecified, unspecified laterality, unspecified retinopathy severity ([facility] HHS/HCC) INJECT 60 UNITS SUBCUTANEOUSLY ONCE DAILY IN THE MORNING THEN 55 ONCE DAILY IN THE EVENING 40 mL 2 3 01/31/20 23 Insulin Syringe-Needle U-100 (INSULIN SYRINGE 1CC/30GX5/16 ) 30G X 5/16 1 ML MiscIndications:Typ e 2 diabetes mellitus with diabetic neuropathic arthropathy, with long-term current use of insulin ([facility] HHS/HCC) Use as directed to inject insulin [...] 03/05/19 24 documented as of this encounter H&P Notes * Karlo Saldivar MD - 12/25/2022 11:15 AM CST HISTORY AND PHYSICAL INTERVAL NOTE: I have reviewed Lena Mcneal History & Physical which was performed within the past 30 days. After examining Lena Mcneal, no change has occurred in the patient's condition since the H&P was completed. Informed Consent Discussion: Potential benefits, risks, and side effects of the patient's procedure/surgery; the likelihood of the patient achieving his or her goals; and any potential problems that might occur during recuperation were discussed with the patient/family/personal contact representative. Reasonable alternatives to the patient's proposed procedure/surgery including benefits, risks, and side effects related to the alternatives and the risks related to not receiving the proposed care were also discussed with the patient/family/personal contact representative. Questions were answered and the patient/family/personal contact representative verbalized understanding and desires to proceed. PLANNER Source Note - Karlo Saldivar MD - 12/13/2022 1:00 PM CDT Images from the original note were not included. Gastroenterology Established Visit Reason for Visit: New Patient (Hospital f/u (abdominal pain/vomitting) History of Present Illness: Patient was recently discharged from the hospital. I saw her in the hospital where she told me she was having a lot of abdominal pain in the epigastric area. She has a history of peptic ulcer disease. She also has a history of constipation and has been on Linzess. Last colonoscopy was less than 3 years ago. She also has been taking Trulicity for 2 years. Medications: Current Outpatient Medications: amLODIPine (NORVASC) 10 MG tablet, Take 1 tablet by mouth once daily (Patient taking differently: Take 1 tablet (10 mg total) by mouth nightly at bedtime.), Disp: 90 tablet, Rfl: 1 calcium carbonate (TUMS) 500 MG chewable tablet, Chew 1 tablet (500 mg total) by mouth 2 (two) times daily as needed., Disp: 60 tablet, Rfl: 0 dulaglutide (TRULICITY) 4.5 MG/0.5ML injection (PEN), Inject 4.5 mg into the skin once a week. Indications: Diabetes , Disp: 1 pen., Rfl: 0 Glucose Blood (ACCU-CHEK TAWANNA PLUS) test strip, 1 strip by Other route 2 (two) times daily. Use asinstructed, Disp: 200 strip, Rfl: 3 HUMALOG MIX 75/25 (75-25) 100 UNIT/ML Suspension, INJECT 60 UNITS SUBCUTANEOUSLY ONCE DAILY IN THE MORNING THEN 55 ONCE DAILY IN THE EVENING (Patient taking differently: Inject 55-65 Units into the skin see administration instructions. INJECT 65 UNITS SUBCUTANEOUSLY ONCE DAILY IN THE MORNING THEN 55 ONCE DAILY IN THE EVENING), Disp: 40 mL, Rfl: 2 Insulin Syringe-Needle U-100 (INSULIN SYRINGE 1CC/30GX5/16 ) 30G X 5/16 1 ML Misc, Use as directedto inject insulin twice a day., Disp: 200 each, Rfl: 3 lisinopril (PRINIVIL) 20 MG tablet, Take 1 tablet (20 mg total) by mouth every evening. Indications: hypertension, Disp: 30 tablet, Rfl: 03 ondansetron (ZOFRAN-ODT) 4 MG disintegrating tablet, Take 1 tablet (4 mg total) by mouth every 6 (six) hours as needed for Nausea., Disp: 20 tablet, Rfl: 0 oxybutynin (DITROPAN) 5 MG tablet, Take 1 tablet (5 mg total) by mouth 3 (three) times daily., Disp: , Rfl: oxyCODONE-acetaminophen (PERCOCET) 5-325 MG tablet, Take 1-2 tablets by mouth every 4 (four) hours as needed for Pain. Indications: Acute Pain < 7 Day Supply, Disp: 20 tablet, Rfl: 0 pantoprazole EC (PROTONIX) 40 MG tablet, Take 1 tablet (40 mg total) by mouth 2 (two) times daily.,Disp: , Rfl: simvastatin (ZOCOR) 40 MG tablet, TAKE 1 TABLET BY MOUTH AT BEDTIME (Patient taking differently: Take 1 tablet (40 mg total) by mouth nightly at bedtime.), Disp: 90 tablet, Rfl: 3 sucralfate (CARAFATE) 1 G tablet, Take 1 tablet (1 g total) by mouth 3 (three) times daily before meals., Disp: 90 tablet, Rfl: 0 venlafaxine XR (EFFEXOR-XR) 37.5 MG 24 hr capsule, Take 1 capsule (37.5 mg total) by mouth daily. 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 UTI (urinary tract infection) Vision decreased blind right eye, poor vision left eye Surgical History: Past Surgical History: Procedure Laterality Date 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 Patient has been on Trulicity for a while. History of colon polyps but last colonoscopy less than 3 years ago. History of peptic ulcer disease. Recommendations and Plan: EGD. Hold Trulicity for 2 weeks. Such medications could contribute to chronic abdominal pain. Holding Trulicity for 2 weeks prior to EGD would be necessary to minimize risk of aspiration of gastric contents. Risks/Benefits/Options: Patient presented with risks (can include but are not limited to: discomfort, missing lesions, allergic or adverse reaction to the sedation, perforation of the bowel which may require hospitaliztion and surgery, bleeding, infection, aspiration), benefits, and alternatives to the procedure(s) and they are in agreement to proceed as planned. KARLO SALDIVAR MD 12/17/2022 Voice recognition software utilized documented in this encounter OR Notes * Op Note - Karlo Saldivar MD - 12/25/2022 11:45 AM CST [facility] OpNote EGD Procedure Note Lena Mcneal 12/25/2022 1100 Procedure(s) (LRB): EGD (N/A) Surgeon(s): Karlo Saldivar MD Staff: GI Nurse: Kenia Michel RN marketing operations manager: Cassandra Dwyer Anesthesia: General Anesthesiologist: Douglas Loja MD ELECTRIC BATH ATTENDANT: Lupe Mcclain CRNA Pre-Op Diagnosis: peptic ulcer, epigastric pain Post-Op Diagnosis: Negative EGD. Procedure Description: Informed consent was obtained earlier. Patient was brought to the OR and placed in supine lateral decubitus position and sedated under MAC anesthesia. GIF 190 gastroscope was lubricated inserted into the hypopharynx and advanced directly. Upper middle and distal esophagus alllooked normal. GE junction looked normal at 36 cm. Stomach distended well. Retroflexed views of thecardia fundus angularis revealed no abnormalities. Antrum was normal. First and second parts of theduodenum looked normal and scope withdrawn. Findings: Negative EGD. Nothing to explain abdominal pain. Abdominal pain could be related to her use of Trulicity. Plan: Consider alternative to Trulicity. Complications: None Estimated Blood Loss: None Specimens:* No orders in the log * Voice recognition software utilized. KARLO SALDIVAR MD Date: 12/25/2022 Time: 11:45 AM Voice recognition software utilized. PLANNER documented in this encounter Plan of Treatment Upcoming Encounters Date Type Department Care Team (Late st Contact Info) Description 03/14/2024 11:45 AM MENU PLANNER Office Visit [facility] [phone] Marvin Mckeon MD [address] [facility] [address] [address] [place], [place] [phone] 03/20/2024 11:30 AM MENU PLANNER Office Visit [facility] Medical Group Family Medicine - [place] [address] [place] [address] Abiodun Segura II, MD 100 [place], [place] [phone] Scheduled Orders Name Type Priority Associated Diagnoses Orde r Schedule EGD GI Routine Once for 1 Occ urrences starting 12/25/2022 until 12/25/2022 documented as of this encounter Goals Goal Patient Goal Type Associated Problems Recent Progress Patient-Stated? Author Family - family caregiver with be involved in care transitions and discharge planning Lifestyle No Natty Cheek, RN documented as of this encounter Procedures Procedure Name Priority Date/Time Associated Diagnosis Comments UPPER GI ENDOSCOPY,DIAGNOSIS 12/25/2022 7:00 PM MENU PLANNER Peptic ulcer Epigastric abdominal pain POCT GLUCOSE - CORREA DOCKED DEVICE Routine 12/25/2022 11:08 AM MENU PLANNER documented in this encounter Results * POCT glucose (12/25/2022 11:08 AM MENU PLANNER) GLUCOSE POC 98 70 - 99 mg/dL 12/25/2022 11:11 AM MENU PLANNER [facility] 12/25/2022 11:0 8 AM MENU PLANNER Karlo Saldivar MD POCT ORDERABLES - DEVICE Final R esult [facility] [address] [place] [address], documented in this encounter Visit Diagnoses Diagnosis Peptic ulcer Peptic ulcer, unspecified site, unspecified as acute or chronic, without mention of hemorrhage, perforation, or obstruction Epigastric abdominal pain Abdominal pain, epigastric Peptic ulcer Peptic ulcer, unspecified site, unspecified as acute or chronic, without mention of hemorrhage, perforation, or obstruction Epigastric abdominal pain Abdominal pain, epigastric documented in this encounter Admitting Diagnoses Diagnosis Peptic ulcer Peptic ulcer, unspecified site, unspecified as acute or chronic, without mention of hemorrhage, perforation, or obstruction Epigastric abdominal pain Abdominal pain, epigastric documented in this encounter Administered Medications Inactive Administered Medications - up to 3 most recent administrations Medication Order MAR Action Action Date Dose Rate Site lactated ringers infusion at 10 mL/hr, Intravenous, Continuous (pre-procedure), Starting on Sun12/25/22 at 1100, Until Sun12/25/22 at 1433, Pre-Op New Bag 12/25/2022 11:37 AM MENU PLANNER 50 mL/hr documented in this encounter Active and Recently Administered Medications Due to Daylight Saving Time, this section may contain times in both CDT and MENU PLANNER. Continuous Medication Order 12/23/2022 12/24/2022 12/25/2022 lactated ringers infusion at 10 mL/hr, Intravenous, Continuous (pre-procedure), Starting on Sun12/25/22 at 1100, Until Sun12/25/22 at 1433, Pre-Op 1137 (New Bag - Prov ider: Lupe Mcclain CRNA)1147 (Anesthesia Volume Adjustment - Provider: Lupe Mcclain CRNA) documented in this encounter Additional Health Concerns Assessment Noted Time PHQ-9 Depression Total Score: 0 03/08/19 22 9:30 AM MENU PLANNER documented as of this encounter Care Teams Sign Erector Relationship Specialty Start Date End Date Abiodun Segura II, MD [address] [place] [address] PCP - General FAMILY PRACTICE 03/09/21 [place] [address] [place] [address] PODIATRY/SURGERY 05/05/22 documented as of this encounter
--- OUTSIDE RECORDS SUMMARY | 2024-03-02 22:23 | XMS_ITS | Encounter Summary ---
Author Organization [facility] Address [address] [place] [address]. [place] [address] [place] [address] Care Team Providers Care Building Repair Maintenance Supervisor Name Role Phone Colton SILVEIRA MD, Abiodun Rushing Primary Care Provider Victoriano Langston MD Unavailable [phone] Reason for Visit * Reason Onset Date Comments Prior Authorization 12/14/2022 [id number] Encounter Details Date Type Department Care Team (Late st Contact Info) Description 12/14/2022 Telephone [facility] Multispecialty Care - [facility] [address] [facility], [address] [place] [phone] Karlo Saldivar MD 3 [facility] [address] [place] [address] Prior Authorization ([id number]) Social History Tobacco Use Types Packs/Day Years [...] Recorded Patient Health Questionnaire-2 Score 0 12/13/2022 [facility] - Occupational Stress Questionnaire Answer Date [...] AM EMILEET Sunshine Talamantes RN Active * Because of [...] documented in this encounter Progress Notes * Nayeli Salas MA - 12/14/2022 8:51 AM CDT SunDec 19, 2022 11:14:21 AM EDT [facility] [address] [place] [id number] ID:[id number] :[id number]:F Referring Provider: KARLO SALDIVAR [address] [facility] [address], [place] [address] TIN:[id number] Servicing Facility: [facility] [address] [facility], [place] [address] Ph:[phone] TIN:[id number] Servicing Provider: KARLO SALDIVAR 3 [facility] [address], [place] [address] Ph:[phone] TIN:[id number] Category: Health Services Review Service: Surgical Facility: Off [facility] Certification: Initial Requested Dates: Dec 25, 2022 - Feb 18, 2023 Diagnosis codes: 1. K27.9 Peptic ulcer, site unspecified, unspecified as acute or chronic, without hemorrhage or perforation 2. R10.13 Epigastric pain Requested Services: 1. 66413: EGD REMOVAL TUMOR POLYP/OTHER LESION SNARE TECH Status: CERTIFIED Servicing Provider:KARLO SALDIVAR; TIN:[id number]; [place] [address] 1 2. 91872: EGD FLEX REMOVAL LESION(S) BY HOT BIOPSY FORCEPS Status: CERTIFIED Servicing Provider:KARLO SALDIVAR; TIN:[id number]; [place] [address] 1 3. 01288: DILATION OF STOMACH OUTLET USING A FLEXIBLE ENDOSCOPE Status: CERTIFIED Servicing Provider:KARLO SALDIVAR; TIN:[id number]; [place] [address] 1 4. 06741: BIOPSY OF ESOPHAGUS, STOMACH, AND/OR UPPER SMALL BOWEL USING A FLEXIBLE ENDOSCOPE Status: CERTIFIED Servicing Provider:KARLO SALDIVAR; TIN:[id number]; [place] [address] 1 5. 61652: DIAGNOSTIC EXAM OF ESOPHAGUS, STOMACH, AND/OR UPPER SMALL BOWEL USING A FLEXIBLE ENDOSCOPE Status: CERTIFIED Servicing Provider:KARLO SALDIVAR; TIN:[id number]; [place] [address] 1 Status: APPROVED Authorization #: [id number] Message: Payment is based on member eligibility, medical necessity review, where applicable and [facility] provider contractual agreement. Authorization does not guarantee payment. documented in this encounter Plan of Treatment Upcoming Encounters Date Type Department Care Team (Late st Contact Info) Description 03/14/2024 11:45 AM BARREL PAINTER Office Visit [facility] [phone] Marvin Mckeon MD [address] [facility] [address] [place], [place] [phone] 03/20/2024 11:30 AM BARREL PAINTER Office Visit [facility] Family Medicine - [place] [address] [place] [phone] Abiodun Segura II, MD 100 [place] [address] documented as of this encounter Goals Goal Patient Goal Type Associated Problems Recent Progress Patient-Stated? Author Family - family caregiver with be involved in care transitions and discharge planning Lifestyle No Natty Cheek, RN documented as of this encounter Visit Diagnoses Not on filedocumented in this encounter Additional Health Concerns Assessment Noted Time PHQ-9 Depression Total Score: 0 03/08/19 22 9:30 AM BARREL PAINTER documented as of this encounter Care Teams Building Repair Maintenance Supervisor Relationship Specialty Start Date End Date Abiodun Segura II, MD 100 [place] [address] PCP - General FAMILY PRACTICE 03/09/21 [place] [address] [place] [address] PODIATRY/SURGERY 05/05/22 documented as of this encounter
--- OUTSIDE RECORDS SUMMARY | 2024-03-02 22:23 | XMS_ITS | Encounter Summary ---
Author Organization [facility] Address [address] [place] [address]. [place] [address] [place] [address] Care Team Providers Care Mailing Clerk Name Role Phone Colton SILVEIRA MD, Abiodun Rushing Primary Care Provider Victoriano Langston MD Unavailable [phone] Reason for Visit * Auth/Cert (Routine) Specialty Diagnoses / Procedures Referred By Contxavier t Referred To Contact Diagnoses Peptic ulcer Epigastric abdominal pain peptic ulcer, epigastric pain Procedures UPPER GI ENDOSCOPY,DIAGNOSIS EGD Karlo Saldivar MD [address] [address] Phone: tel: fax: Referral ID Status Reason Start Date Expiration Date Visits Re quested Visits Authorized [id number] 1 1 Encounter Details Date Type Department Care Team (Latest Contact Info) Description 12/25/2022 10:03 AM RETAIL CLIENT SOLUTIONS CONSULTANT - 12/25/2022 12:24 PM [facility] Hospital Encounter [facility] [place], [place] [id number] Karlo Saldivar MD [address] [phone] Discharge Disposition: Home or Self Care (Routine [...] Recorded Patient Health Questionnaire-2 Score 0 12/13/2022 [facility] [...] place to sleep or slept in a fdc (including now)? No 11/10/2022 Comments No Sex and Gender Information Value Date Recorded Sex Assigned at Female 12/17/2021 2:07 AM CDT Legal Sex Female 2:58 PM CDT Gender Identity Female 12/17/2021 2:07 AM CDT Sexual Orientation Straight 12/17/2021 2: 07 AM CDT documented as of this encounter Last Filed Vital Signs Vital Sign Reading Time Taken Comments Blood Pressure 159/88 12/25/2022 12:05 PM RETAIL CLIENT SOLUTIONS CONSULTANT Pulse 89 12/25/2022 11:45 AM RETAIL CLIENT SOLUTIONS CONSULTANT Temperature 36.8 ??C (98.3 ??F) 12/25/2022 11:[address] Respiratory Rate 15 12/25/2022 11:45 AM RETAIL CLIENT SOLUTIONS CONSULTANT Oxygen Saturation 98% 12/25/2022 12:05 PM RETAIL CLIENT SOLUTIONS CONSULTANT Inhaled Oxygen Concentration - - Weight 86.6 [...] Everywhere. * Upper GI Endoscopy Discharge Instructions (Singaporean) * General Anesthesia Discharge Instructions (Singaporean) documented in this encounter Medications at Time [...] arthropathy, with long-term current use of insulin ([facility]) 1 strip by Other route 2 (two) times daily. 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 Reasonable alternatives to the patient's proposed procedure/surgery including benefits, risks, and side effects related to the alternatives and the risks related to not receiving the proposed care were also discussed with the patient/family/personal arborist representative. Questions were answered and the patient/family/personal arborist representative verbalized understanding and desires to proceed. [place] CLIENT SOLUTIONS CONSULTANT Source Note - Karlo Saldivar MD - [...] Saldivar MD - 12/25/2022 11:45 AM CST [facility] OpNote EGD Procedure Note eLna Mcneal 12/25/2022 1100 Procedure(s) (LRB): EGD (N/A) Surgeon(s): Karlo Saldivar MD Staff: GI Nurse: Kenia Michel RN return to vendor: Cassandra Dwyer Anesthesia: General Anesthesiologist: Douglas Loja MD CLINICAL ADMINISTRATOR: Luep Mcclain CRNA Pre-Op Diagnosis: peptic ulcer, epigastric [...] Time: 11:45 AM Voice recognition software utilized. [place] CLIENT SOLUTIONS CONSULTANT documented in this encounter Plan of Treatment Upcoming Encounters Date Type Department Care Team (Late st Contact Info) Description 03/14/2024 11:45 AM RETAIL CLIENT SOLUTIONS CONSULTANT Office Visit [facility] [address] [address] Marvin Mckeon MD [address] [facility] [address] [place], [place] [phone] 03/20/2024 11:30 AM RETAIL CLIENT SOLUTIONS CONSULTANT Office Visit [facility] Family Medicine - [place] [address] [place] [address] Abiodun Segura II, MD [address] [place] [address] Scheduled Orders Name Type Priority Associated Diagnoses [...] Comments UPPER GI ENDOSCOPY,DIAGNOSIS 12/25/2022 7:00 PM RETAIL CLIENT SOLUTIONS CONSULTANT Peptic ulcer Epigastric abdominal pain POCT GLUCOSE - CORREA DOCKED DEVICE Routine 12/25/2022 11:08 AM RETAIL CLIENT SOLUTIONS CONSULTANT documented in this encounter Results * POCT glucose (12/25/2022 11:08 AM RETAIL CLIENT SOLUTIONS CONSULTANT) GLUCOSE POC 98 70 - 99 mg/dL 12/25/2022 11:11 AM RETAIL CLIENT SOLUTIONS CONSULTANT [facility] 12/25/2022 11:0 8 AM RETAIL CLIENT SOLUTIONS CONSULTANT us Karlo Saldivar MD POCT ORDERABLES - DEVICE Final R esult [facility] [address] [place] [address], [place] [phone] documented in this encounter Visit Diagnoses Diagnosis [...] 1433, Pre-Op New Bag 12/25/2022 11:37 AM RETAIL CLIENT SOLUTIONS CONSULTANT 50 mL/hr documented in this encounter Active and Recently Administered Medications Due to Daylight Saving Time, this section may contain times in both CDT and RETAIL CLIENT SOLUTIONS CONSULTANT. Continuous Medication Order 12/23/2022 12/24/2022 12/25/2022 lactated ringers infusion at 10 mL/hr, Intravenous, Continuous (pre-procedure), Starting on Sun12/25/22 at 1100, Until Sun12/25/22 at 1433, Pre-Op 1137 (New Bag - Prov ider: Lupe Mcclain CRNA)1147 (Anesthesia Volume Adjustment - Provider: Lupe Mcclain CRNA) documented in this encounter Additional Health Concerns Assessment Noted Time PHQ-9 Depression Total Score: 0 03/08/19 22 9:30 AM RETAIL CLIENT SOLUTIONS CONSULTANT documented as of this encounter Care Teams Mailing Clerk Relationship Specialty Start Date End Date Abiodun Segura II, MD [address] [place] [address] PCP - General FAMILY PRACTICE 03/09/21 [place] [address] [place] [address] PODIATRY/SURGERY 05/05/22 documented as of this encounter
--- OUTSIDE RECORDS SUMMARY | 2024-03-02 22:23 | XMS_ITS | Encounter Summary ---
Author Organization [facility] Address [address] [place] [address]. [place] [address] [place] [address] Care Team Providers Care Utility Spray Operator Name Role Phone Colton SILVEIRA MD, Yasmin Rushing Primary Care Provider Victoriano Langston MD Unavailable [phone] Reason for Visit * Reason Comments Hypertension Hosp f/u abdominal p ain Encounter Details Date Type Department Care Team (Late st Contact Info) Description 11/02/2022 10:15 AM CDT Office Visit [facility], [address] [place], [place] [id number] Abhishek Latham MD [facility] [address] [place] [address] Hypertension (Hosp f/u abdominal pain) Social History Tobacco Use Types Packs/Day Years Used Date Smoking Tobacco: Never Smokeless Tobacco: Never Tobacco Cessation:Counseling Given: Not Answered Alcohol Use Standard Drinks/Week Comments Yes 0 [...] Recorded Patient Health Questionnaire-2 Score 0 05/05/2022 [facility] - Occupational [...] in a group home (including now)? No 09/03/2022 Comments No Sex and Gender Information Value Date Recorded Sex Assigned at Female 12/17/2021 2:07 AM CDT Legal Sex Female 2:58 PM CDT Gender Identity Female 12/17/2021 2:07 AM CDT Sexual Orientation Straight 12/17/2021 2: 07 AM CDT documented as of this encounter Last Filed Vital Signs Vital Sign Reading Time Taken Comments Blood Pressure 120/72 11/02/2022 10:19 AM CDT Pulse 82 11/02/2022 10:19 AM CDT Temperature - - Respiratory Rate - - Oxygen Saturation 98% 11/02/2022 10:19 AM CDT Inhaled Oxygen Concentration - - Weight 88.5 kg (195 lb) 11/02/2022 10:19 AM CDT Height 167.6 cm (5' 6 ) 11/02/2022 10:19 AM CDT Body Mass Index 31.47 11/02/2022 10:19 AM CDT documented in this encounter Functional Status * Are you deaf or do you have serious difficulty hearing Answer Date of Assessment Author Status No 10/11/2022 11:33 PM CDT Amanda Qureshi RN Active * Are you blind or do you have serious difficulty seeing, even when wearing glasses? Answer Date of Assessment Author Status Yes 10/11/2022 11:33 PM CDT Amanda Qureshi RN Active * Do you have serious difficulty walking or climbing stairs? Answer Date of Assessment Author Status Yes 10/11/2022 11:33 PM CDT Amanda Qureshi RN Active * Do you have difficulty dressing or bathing? Answer Date of Assessment Author Status No 10/11/2022 11:33 PM CDT Amanda Qureshi RN Active * Because of a physical, mental, or emotional condition, do you have difficulty doing errands alone such as visiting a doctor's office or shopping? Answer Date of Assessment Author Status Yes 10/11/2022 11:38 PM CDT Amanda Qureshi RN Active documented as of this encounter Mental Status * Because of a physical, mental, or emotional condition, do you have serious difficulty concentrating, remembering, or making decisions? Answer Entry Date Author Status No 10/11/2022 11:33 PM CDT Amanda Qureshi RN Active documented in this encounter Progress Notes * Abhishek Latham MD - 11/02/2022 10:15 AM CDT Reason for Visit: Hypertension (Hosp f/u abdominal pain) History of Present Illness: Ms. Mcneal is a 52 year old female with a PMH of DM 2, HTN, dyslipidemia, Covid- 19 infection, arthritis who presents for an initial evaluation. She was recently hospitalized for abdominal pain and vomiting for several weeks, found to have ulcers and HEMA with nephrolithiasis. She feels fine, no dyspnea on exertion or chest discomfort. She has joint pain which limits her mobility given the Charcot foot disease. No edema, orthopnea or PND. Recommendations and Plan: Epigastric pain: Recently diagnosed with ulcers, will follow up with the GI team. She denies chest discomfort or dyspnea on exertion. Normal pharmacological stress test 07/11/21, echo 07/10/22 with normal biventricular function. Currently with no concerning cardiopulmonary symptoms, continue CAD riskfactor modification as below. Advised close follow up with the GI team for management of ulcer disease, on pantorazole and sucralfate. HTN: Well controlled, continue lisinopril 20mg qd, amlodipine 10mg qd with lifestyle modification. Dyslipidemia: Simvastatin 40mg qhs with lifestyle modification. DM 2: Dulaglutide, lisinopril, statin with lifestyle modification. Follow up as needed. Medications: Outpatient Medications cephALEXin (KEFLEX) 500 MG capsule Take 1 capsule (500 mg total) by mouth. HYDROcodone-acetaminophen (NORCO) 5-325 MG tablet Take 1 tablet by mouth every 8 (eight) hours as needed. FOR SEVERE PAIN oxybutynin (DITROPAN) 5 MG tablet Take 1 tablet (5 mg total) by mouth 3 (three) times daily. pantoprazole EC (PROTONIX) 40 MG tablet Take 1 tablet (40 mg total) by mouth 2 (two) times daily. sucralfate (CARAFATE) 1 G tablet Take 1 tablet (1 g total) by mouth daily. amLODIPine (NORVASC) 10 MG tablet Take 1 tablet by mouth once dailyPatient taking differently: Take1 tablet (10 mg total) by mouth nightly at bedtime. dulaglutide (TRULICITY) 4.5 MG/0.5ML injection (PEN) Inject 4.5 mg into the skin once a week. Indications: DiabetesPatient taking differently: Inject 4.5 mg into the skin once a week. Indications: Diabetes HUMALOG MIX 75/25 (75-25) 100 UNIT/ML Suspension INJECT 60 UNITS SUBCUTANEOUSLY ONCE DAILY IN THE MORNING THEN 55 ONCE DAILY IN THE EVENINGPatient taking differently: Inject 55-65 Units into the skinsee administration instructions. INJECT 65 UNITS SUBCUTANEOUSLY ONCE DAILY IN THE MORNING THEN 55 ONCE DAILY IN THE EVENING lisinopril (PRINIVIL) 20 MG tablet Take 1 tablet (20 mg total) by mouth every evening. Indications:hypertension simvastatin (ZOCOR) 40 MG tablet TAKE 1 TABLET BY MOUTH AT BEDTIMEPatient taking differently: Take 1 tablet (40 mg total) by mouth nightly at bedtime. venlafaxine XR (EFFEXOR-XR) 37.5 MG 24 hr capsule Take 1 capsule (37.5 mg total) by mouth daily.Patient taking differently: Take 1 capsule (37.5 mg total) by mouth nightly at bedtime. 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 UTI (urinary tract infection) Vision decreased blind right eye, poor vision left eye Past Surgical History: Procedure Laterality Date 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 SURGERY HYSTERECTOMY 2004, 2019 hysterectomy, cervical surgery RETINAL DETACHMENT SURGERY Right Social History Tobacco Use Smoking status: Never Smokeless tobacco: Never Vaping Use Vaping Use: Never used Substance Use Topics Alcohol use: Yes Comment: few times per year Drug use: No Family History Problem Relation Name Age of Onset Diabetes Mother Hypertension Mother Heart Attack Father Hypertension Father Stroke Sister Hypertension Sister Breast Cancer Other cousin 49 Family Status Relation Name Status Mother Alive, age 74y Father Alive, age 73y Sister (Not Specified) Daughter Alive Other cousin Alive Review of Systems Constitutional: Negative for recent unintentional weight gain, recent unintentional weight loss andnew or significant fatigue. HENT: Negative for new or significant hearing loss. Eyes: Positive for blurred vision. Negative for double vision. Respiratory: Negative for cough, new or significant shortness of breath and snoring. Cardiovascular: See HPI. Negative for chest pain, palpitations, orthopnea, leg swelling and PND. Gastrointestinal: Positive for abdominal pain. Negative for heartburn, nausea, vomiting, blood in stool and melena. Genitourinary: Negative for dysuria. Musculoskeletal: Positive for joint stiffness/pain. Negative for myalgias. Skin: Negative for rash. Neurological: Positive for tingling/numbness. Negative for focal weakness. Endo/Heme/Allergies: Negative for new or significant bruising/bleeding and polydipsia. Psychiatric/Behavioral: Negative for depression and new or significant memory loss. Vitals: 11/02/22 1019 BP: 120/72 Patient Position: Sitting BP Location: Left arm Pulse: 82 Weight: 88.5 kg (195 lb) Height: 5' 6 (1.676 m) Body mass index is 31.47 kg/m??. Cardiac Exam Rate/Rhythm: Normal rate and regular rhythm. PMI: PMI is not displaced. Pulses: Carotid pulses are 2+ on the right side and 2+ on the left side. Radial pulses are 2+ on the right side and 2+ on the left side. Dorsalis pedis pulses are 2+ on the right side and 2+ on the left side. Posterior tibial pulses are 2+ on the right side and 2+ on the left side. Heart Sounds: Normal heart sounds. Normal S1 sounds. Normal S2 sounds. No gallop present. No S3. NoS4. Murmurs: No murmur present Negative for edema. Physical Exam Constitutional: No distress. Healthy Appearance. HENT: Oropharynx clear. Eyes: Conjunctivae normal. Neck: Neck supple. No JVD. Abdomen: Abdomen soft. Bowel sounds normal. No tenderness. No mass. Pulmonary: Effort normal. Breath sounds normal. No wheezes. Skin: Warm. No rash. No cyanosis. No clubbing. No xanthoma. Musculoskeletal: No kyphosis. Normal ROM. Neurological: Alert. Oriented x 3. Appropriate mood and affect. Normal motor skills. Normal gait. Comments: Regadenoson SUMMARY: ++++++++++++++++++++++++++++++++++++ Stress conclusion: 1. Clinically negative. 2. Electrocardiographically negative stress test for ischemia. 3. Scintigraphic images to follow. Perfusion conclusion: 1. Good study quality. No motion correction was applied to images. Diaphragm attenuation is noted. Prone imaging was performed. 2. Normal myocardial perfusion SPECT imaging. 3. Normal wall motion with an ejection fraction of 61%. 4. Stress test with myocardial perfusion imaging shows overall low risk for a cardiac event. Diagnoses/Impression: 1. Epigastric pain 2. Primary hypertension 3. Dyslipidemia 4. DM type 2, goal HbA1c < 7% ([facility]/HCC) ([facility]) Referring Provider: No ref. provider found PCP: YASMIN VALENZUELA MD documented in this encounter Plan of Treatment Upcoming Encounters Date Type Department Care Team (Late st Contact Info) Description 03/14/2024 11:45 AM PYROTECHNICS PRESS TENDER Office Visit [facility] [phone] Marvin Mckeon MD [address] [facility] [address] [place] [phone] 03/20/2024 11:30 AM PYROTECHNICS PRESS TENDER Office Visit [facility] Family Medicine - [place] [address] [place] [phone] Yasmin Valenzuela II, MD [address] [place] [address] documented as of this encounter Goals Goal Patient Goal Type Associated Problems Recent Progress Patient-Stated? Author Family - family caregiver with be involved in care transitions and discharge planning Lifestyle Natty Angeles, RN documented as of this encounter Visit Diagnoses Diagnosis Epigastric pain- Primary Abdominal pain, epigastric Primary hypertension Unspecified essential hypertension Dyslipidemia Other and unspecified hyperlipidemia DM type 2, goal HbA1c < 7% ([facility]/HCC HHS/HCC) documented in this encounter Additional Health Concerns Assessment Noted Time PHQ-9 Depression Total Score: 0 03/08/19 22 9:30 AM PYROTECHNICS PRESS TENDER documented as of this encounter Care Teams Utility Spray Operator Relationship Specialty Start Date End Date Yasmin Valenzuela II, MD [address] [place] [address] PCP - General FAMILY PRACTICE 03/09/21 [place] [address] [place] [address] PODIATRY/SURGERY 05/05/22 documented as of this encounter
--- OUTSIDE RECORDS SUMMARY | 2024-03-02 22:23 | XMS_ITS | Encounter Summary ---
Author Organization [facility] Address [address] [place] [address]. [place] [address] [place] [address] Care Team Providers Care Strategy Manager Name Role Phone Colton SILVEIRA MD, Abiodun Rushing Primary Care Provider Victoriano Langston MD Unavailable Reason for Visit * Reason Onset Date Comments Follow Up Call 11/08/2022 Patient seen the ER from 11/08-11/08/22 Encounter Details Date Type Department Care Team (Latest Contact Info) Description 11/09/2022 Hospital Follow-up Call [facility] [place] [address] Ryanne Lambert, YINA Follow Up Call (Patient seen the ER from 11/08-11/08/22) Social History Tobacco Use Types Packs/Day Years [...] Recorded Patient Health Questionnaire-2 Score 0 05/05/2022 [facility]at [facility] - Occupational Stress Questionnaire Answer Date Recorded [...] in a group home (including now)? No 11/10/2022 Comments No Sex [...] Qureshi RN Active documented in this encounter Plan of Treatment Upcoming Encounters Date Type Department Care Team (Late st Contact Info) Description 03/14/2024 11:45 AM HEADING MACHINE OPERATOR Office Visit [facility] [address] Marvin Mckeon MD [facility] [address] [facility] [place] [address] 03/20/2024 11:30 AM HEADING MACHINE OPERATOR Office Visit [facility] Family Medicine - [place] [address] [place] [phone] Abiodun Segura II, MD [address] [place] [address] documented as of this encounter Goals Goal Patient Goal Type Associated Problems Recent Progress Patient-Stated? Author Family - family caregiver with be involved in care transitions and discharge planning Lifestyle No Natty Cheek, RN documented as of this encounter Visit Diagnoses Not on filedocumented in this encounter Additional Health Concerns Assessment Noted Time PHQ-9 Depression Total Score: 0 03/08/19 9:30 AM HEADING MACHINE OPERATOR documented as of this encounter Care Teams Strategy Manager Relationship Specialty Start Date End Date Abiodun Segura II, MD [address] [place] [address] PCP - General FAMILY PRACTICE 03/09/21 [place] [address] [place] [address] PODIATRY/SURGERY 05/05/22 documented as of this encounter
--- OUTSIDE RECORDS SUMMARY | 2024-03-02 22:23 | XMS_ITS | Encounter Summary ---
Author Organization [facility] Address [address] [place] [address]. [place] [address] [place] [address] Care Team Providers Care Community Health Outreach Worker Name Role Phone Colton SILVEIRA MD, Abiodun Rushing Primary Care Provider Victoriano Langston MD Unavailable [phone] Reason for Visit * Reason Comments New Patient Hospital f/u (abdomi nal pain/vomitting * Consultation (Routine) - Closed Specialty Diagnoses / Procedures Referred By Contac t Referred To Contact GASTROENTEROLOGY Diagnoses Vomiting History of stomach ulcers Abiodun Segura II, MD 100 [place] [address] Phone: tel: fax: Karlo Saldivar MD 3 [facility] Mic [address] [place] [address] Phone: tel: fax: Referral ID Status Reason Start Date Expiration Date Visits Re quested Visits Authorized [id number] Closed 11/06/2022 12/07/2023 99 99 Encounter Details Date Type Department Care Team (Latest Contact Info) Description 12/13/2022 1:00 PM CDT Office Visit [facility] Multispecialty Care - [address] [place] [phone] Karlo Saldivar MD [address] [address] New Patient (Hospital f/u (abdominal pain/vomitting) Social History Tobacco Use Types Packs/Day Years [...] Recorded Patient Health Questionnaire-2 Score 0 12/13/2022 [facility] of Occupat ional Health - Occupational Stress [...] slept in a halfway (including now)? No 11/10/2022 Comments No Sex and Gender Information Value Date Recorded Sex Assigned at Female 12/17/2021 2:07 AM CDT Legal Sex Female 2:58 PM CDT Gender Identity Female 12/17/2021 2:07 AM CDT Sexual Orientation Straight 12/17/2021 2: 07 AM CDT documented as of this encounter Last Filed Vital Signs Vital Sign Reading Time Taken Comments Blood Pressure 132/78 12/13/2022 12:56 PM CDT Pulse 76 12/13/2022 12:56 PM CDT Temperature 36.6 ??C (97.8 ??F) 12/13/2022 12:56 PM C DT Respiratory Rate 20 12/13/2022 12:56 PM CDT Oxygen Saturation 99% 12/13/2022 12:56 PM CDT Inhaled Oxygen Concentration - - Weight 86.6 kg (191 lb) 12/13/2022 12:56 PM CDT Height 167.6 cm (5' 6 ) 12/13/2022 12:56 PM CDT Body Mass Index 30.83 12/13/2022 12:56 PM CDT documented in this encounter Functional [...] Status No 11/10/2022 3:37 AM Sunshine Segundo R N Active documented in this encounter Progress Notes * Karlo Saldivar MD - 12/13/2022 1:00 PM [...] Charcot foot due to diabetes mellitus (HHS/HCC) ([facility]) LEFT FOOT Constipation COVID-19 Diabetes mellitus [...] recognition software utilized documented in this encounter Plan of Treatment Upcoming Encounters Date Type Department Care Team (Late st Contact Info) Description 03/14/2024 11:45 AM STEEL POST INSTALLER SUPERVISOR Office Visit [facility] [address] Marvin Mckeon MD [address] [facility] [address] [place], [place] [phone] 03/20/2024 11:30 AM STEEL POST INSTALLER SUPERVISOR Office Visit [facility] Family Medicine - [place] 100 [place] [phone] Abiodun Segura II, MD [address] [place], [place] [phone] Scheduled Referrals Name Type Priority Associated Diagnoses Orde r Schedule Ambulatory referral to Gastroenterology (OTHER) Referral Routine Vomiting History of stomach ulcers Ordered: 11/06/2022 documented as of this encounter Goals Goal Patient Goal Type Associated Problems Recent Progress Patient-Stated? Author Family - family caregiver with be involved in care transitions and discharge planning Lifestyle No Natty Cheek, RN documented as of this encounter Visit Diagnoses Diagnosis Epigastric pain- Primary Abdominal pain, epigastric documented in this encounter Additional Health Concerns Assessment Noted Time PHQ-9 Depression Total Score: 0 03/08/19 9:30 AM STEEL POST INSTALLER SUPERVISOR documented as of this encounter Care Teams Community Health Outreach Worker Relationship Specialty Start Date End Date Abiodun Segura II, MD [address] [place] [phone] PCP - General FAMILY PRACTICE 03/09/21 [place] [address] [place] [address] PODIATRY/SURGERY 05/05/22 documented as of this encounter
--- OUTSIDE RECORDS SUMMARY | 2024-03-02 22:23 | XMS_ITS | Encounter Summary ---
Author Organization [facility] Address [address] [place] [address]. [place] [address] [place] [address] Care Team Providers Care Gas Pumping Station Operator Name Role Phone Colton SILVEIRA MD, Abiodun Rushing Primary Care Provider Victoriano Langston MD Unavailable [phone] Encounter Details Date Type Department Care Team (Latest Contact Info) Description 11/08/2022 Travel Social History Tobacco Use Types Packs/Day [...] Recorded Patient Health Questionnaire-2 Score 0 05/05/2022 [facility] of Occupat ional Health [...] slept in a [facility] (including now)? No 09/03/2022 Comments No Sex [...] Info) Description 03/14/2024 11:45 AM MORTGAGE LOAN FUNDER Office Visit [facility] [phone] Marvin Mckeon MD [facility] [address] [place] [address] 03/20/2024 11:30 AM MORTGAGE LOAN FUNDER Office Visit [facility] Family Medicine - [place] 100 [place] [phone] Abiodun Segura II, MD [address] [place] [phone] documented as of this encounter Goals Goal Patient Goal Type Associated Problems Recent Progress Patient-Stated? Author Family - family caregiver with be involved in care transitions and discharge planning Lifestyle No Natty Cheek, RN documented as of this encounter Visit Diagnoses Not on filedocumented in this encounter Additional Health Concerns Assessment Noted Time PHQ-9 Depression Total Score: 0 03/08/19 22 9:30 AM MORTGAGE LOAN FUNDER documented as of this encounter Care Teams Gas Pumping Station Operator Relationship Specialty Start Date End Date Abiodun Segura II, MD 100 [place] [address] PCP - General FAMILY PRACTICE 03/09/21 [place] [address] [place] [address] PODIATRY/SURGERY 05/05/22 documented as of this encounter
--- OUTSIDE RECORDS SUMMARY | 2024-03-02 22:23 | XMS_ITS | Encounter Summary ---
Author Organization [facility] Address [address] [place] [address]. [place] [address] [place] [address] Care Team Providers Care Education Associate Name Role Phone Colton SILVEIRA MD, Abiodun Rushing Primary Care Provider Victoriano Langston MD Unavailable Reason for Referral * Surgical (Routine) - Closed Specialty Diagnoses / Procedures Referred By Lyla chaney Referred To Contact Diagnoses Peptic ulcer Epigastric abdominal pain Procedures Case request operating room: EGD Gurinder Saldivar MD [address] [address] Phone: tel: fax: Referral ID Status Reason Start Date Expiration Date Visits Re quested Visits Authorized [id number] Closed 12/13/2022 12/14/2023 1 1 Encounter Details Date Type Department Care Team (Late st Contact Info) Description 12/13/2022 Orders Only [facility] Multispecialty Care - [facility] [address] [facility] [address] [place] [address] Gurinder Saldivar MD 3 [facility] [address] [place] [address] Social History Tobacco Use Types Packs/Day Years [...] Recorded Patient Health Questionnaire-2 Score 0 12/13/2022 [facility] of Occupat ional Health [...] slept in a detention (including now)? No 11/10/2022 Comments No Sex [...] No 11/10/2022 3:38 AM CDT Sunshine Talamantes R N Active * Do you have serious difficulty [...] Status No 11/10/2022 3:37 AM CDT Sunshine Talamantes, RN Active documented in this encounter Plan of Treatment Upcoming Encounters Date Type Department Care Team (Late st Contact Info) Description 03/14/2024 11:45 AM DEER FARMER Office Visit [facility] [phone] Marvin Mckeon MD [address] [facility] [address] [place], [place] [phone] 03/20/2024 11:30 AM DEER FARMER Office Visit [facility] Family Medicine - [place] 100 [place] [phone] Abiodun Segura II, MD [address] [place], [place] [phone] Scheduled Orders Name Type Priority Associated Diagnoses Orde r Schedule Case request operating room: EGD Case Request Routine Peptic ulcer Epigastric abdominal pain Ordered: 12/13/2022 documented as of this encounter Goals Goal Patient Goal Type Associated Problems Recent Progress Patient-Stated? Author Family - family caregiver with be involved in care transitions and discharge planning Lifestyle No Natty Cheek, DEANDRE documented as of this encounter Visit Diagnoses Diagnosis Peptic ulcer- Primary Peptic ulcer, unspecified site, unspecified as acute or chronic, without mention of hemorrhage, perforation, or obstruction Epigastric abdominal pain Abdominal pain, epigastric documented in this encounter Additional Health Concerns Assessment Noted Time PHQ-9 Depression Total Score: 0 03/08/19 9:30 AM DEER FARMER documented as of this encounter Care Teams Education Associate Relationship Specialty Start Date End Date Abiodun Segura II, MD [address] [place], [place] [phone] PCP - General FAMILY PRACTICE 03/09/21 [place] [address] [place] [address] PODIATRY/SURGERY 05/05/22 documented as of this encounter
--- OUTSIDE RECORDS SUMMARY | 2024-03-02 22:23 | XMS_ITS | Encounter Summary ---
Author Organization [facility] Address [address] [place] [address]. [place] [address] [place] [address] Care Team Providers Care Sock Boarder Name Role Phone Colton SILVEIRA MD, Abiodun Rushing Primary Care Provider Victoriano Langston MD Unavailable [phone] Encounter Details Date Type Department Care Team (Latest Contact Info) Description 12/25/2022 Travel Social History Tobacco Use Types Packs/Day [...] Recorded Patient Health Questionnaire-2 Score 0 12/13/2022 [facility] - [...] slept in a mcc (including now)? No 11/10/2022 Comments No Sex [...] st Contact Info) Description 03/14/2024 11:45 AM DYE HOUSE HAND Office Visit [facility]-[address] [phone] Marvin Mcekon MD [facility] [address] [place] [address] 03/20/2024 11:30 AM DYE HOUSE HAND Office Visit [facility] Family Medicine - [place] 100 [place] [phone] Abiodun Segura II, MD [address] [place] [address] documented as of this encounter Goals Goal Patient Goal Type Associated Problems Recent Progress Patient-Stated? Author Family - family caregiver with be involved in care transitions and discharge planning Lifestyle No Natty Cheek, RN documented as of this encounter Visit Diagnoses Not on filedocumented in this encounter Additional Health Concerns Assessment Noted Time PHQ-9 Depression Total Score: 0 03/08/19 22 9:30 AM DYE HOUSE HAND documented as of this encounter Care Teams Sock Boarder Relationship Specialty Start Date End Date Abiodun Segura II, MD 100 [place] [address] PCP - General FAMILY PRACTICE 03/09/21 [place] [address] [place] [address] PODIATRY/SURGERY 05/05/22 documented as of this encounter
--- OUTSIDE RECORDS SUMMARY | 2024-03-02 22:23 | XMS_ITS | Encounter Summary ---
Author Organization [facility] Address [address] [place] [address]. [place] [address] [place] [address] Care Team Providers Care Tire Design Engineer Name Role Phone Colton SILVEIRA MD, Abiodun Rushing Primary Care Provider Victoriano Langston MD Unavailable [phone] Encounter Details Date Type Department Care Team (Late st Contact Info) Description 11/09/2022 Hospital Follow-up Call [facility] [place] [address] Nicole Beatty RN Social History Tobacco Use Types Packs/Day Years [...] Recorded Patient Health Questionnaire-2 Score 0 05/05/2022 [facility] of Occupat ional Health - [...] serious difficulty walking or climbing stairs? Yes 11/10/2022 3:37 AM CDT Sunshine Talamantes RN Activ e * Question Answer Date of Assessment Author Status Do you have difficulty dressing or bathing? Yes 11/10/2022 3:37 AM CDT Sunshine Talamantes RN A ctive Because of a physical, mental, or emotional condition, do you have difficulty doing errands alone such as visiting a doctor's office or shopping? Yes 11/10/2022 3:37 AM CDT Sunshine Talamantes RN Active * Are you deaf or do you [...] difficulty concentrating, remembering, or making decisions? No 11/10/2022 3:37 AM CDSunshine Beckman RN A ctive * Because of a physical, mental, or emotional condition, do you have serious difficulty concentrating, remembering, or making decisions? Answer Entry Date Author Status No 10/11/2022 11:33 PM CDT Amanda Qureshi RN Active documented in this encounter Plan of Treatment Upcoming Encounters Date Type Department Care Team (Late st Contact Info) Description 03/14/2024 11:45 AM CARDIAC MONITOR TECHNICIAN Office Visit [facility]-[address] [phone] Marvin Mckeon MD [address] [facility] [address] [place], [place] [phone] 03/20/2024 11:30 AM CARDIAC MONITOR TECHNICIAN Office Visit [facility] Family Medicine - [place] 100 [place] [phone] Abiodun Segura II, MD 100 [place], [place] [phone] documented as of this encounter Goals Goal Patient Goal Type Associated Problems Recent Progress Patient-Stated? Author Family - family caregiver with be involved in care transitions and discharge planning Lifestyle No Natty Cheek RN documented as of this encounter Visit Diagnoses Not on filedocumented in this encounter Additional Health Concerns Assessment Noted Time PHQ-9 Depression Total Score: 0 03/08/19 22 9:30 AM CARDIAC MONITOR TECHNICIAN documented as of this encounter Care Teams Tire Design Engineer Relationship Specialty Start Date End Date Abiodun Segura II, MD 100 [place], [place] [phone] PCP - General FAMILY PRACTICE 03/09/21 [place] [address] [place] [address] PODIATRY/SURGERY 05/05/22 documented as of this encounter
--- OUTSIDE RECORDS SUMMARY | 2024-03-02 22:23 | XMS_ITS | Encounter Summary ---
Author Organization [facility] Address [address] [place] [address]. [place] [address] [place] [address] Care Team Providers Care Planer Feeder Name Role Phone Colton SILVEIRA MD, Abiodun Rushing Primary Care Provider Victoriano Langston MD Unavailable [phone] Reason for Visit * Reason Onset Date Comments Question 12/21/2022 Encounter Details Date Type Department Care Team (Late st Contact Info) Description 12/21/2022 Telephone [facility] Multispecialty Care - [facility] [address] [facility], [address] [place] [phone] Gurinder Saldivar MD 3 [facility] [address] [place] [address] Question Social History Tobacco Use Types Packs/Day Years [...] Recorded Patient Health Questionnaire-2 Score 0 12/13/2022 [facility] Occupat ional Health - Occupational [...] [place] [facility] (including [facility])? No 11/10/2022 Comments No Sex [...] documented in this encounter Progress Notes * Kiera Augustin LPN - 12/21/2022 3:49 PM CDT Pt called and all prep questions answered and I notified endo to call pt concerning her medications. * Mary Hwang - 12/21/2022 2:10 PM CDT Pt called today with some questions about her prep.her procedure is on Dec.25 Please call to discuss documented in this encounter Plan of Treatment Upcoming Encounters Date Type Department Care Team (Late st Contact Info) Description 03/14/2024 11:45 AM TIRE REBUILDER Office Visit [facility]-[address] [phone] Marvin Mckeon MD [address] [facility] [address] [place], [place] [phone] 03/20/2024 11:30 AM TIRE REBUILDER Office Visit [facility] Family Medicine - [place] 100 [place] [phone] Abiodun Segura II, MD 100 [place] [address] documented as of this encounter Goals Goal Patient Goal Type Associated Problems Recent Progress Patient-Stated? Author Family - family caregiver with be involved in care transitions and discharge planning Lifestyle No Natty Cheek, RN documented as of this encounter Visit Diagnoses Not on filedocumented in this encounter Additional Health Concerns Assessment Noted Time PHQ-9 Depression Total Score: 0 03/08/19 9:30 AM TIRE REBUILDER documented as of this encounter Care Teams Planer Feeder Relationship Specialty Start Date End Date Abiodun Segura II, MD 100 [place], [place] [phone] PCP - General FAMILY PRACTICE 03/09/21 [place] [address] [place] [address] PODIATRY/SURGERY 05/05/22 documented as of this encounter
--- OUTSIDE RECORDS SUMMARY | 2024-03-02 22:23 | XMS_ITS | Encounter Summary ---
Author Organization [facility] Address [address] [place] [address]. [place] [address] [place] [address] Care Team Providers Care Labview Programmer Name Role Phone Colton SILVEIRA MD, Abiodun Rushing Primary Care Provider Victoriano Langston MD Unavailable [phone] Reason for Referral * Imaging (Emergency) - Closed Specialty Diagnoses / Procedures Referred By Lyla chaney Referred To Contact RADIOLOGY Procedures CT ABD+PEL W IV CON ONLY Desiree Mackenzei MD [address] [address] Phone: tel: fax: Referral ID Status Reason Start Date Expiration Date Visits Re quested Visits Authorized [id number] Closed 11/08/2022 11/09/2023 1 1 Reason for Visit * Reason Comments Abdominal Pain Vomiting Encounter Details Date Type Department Care Team (Late st Contact Info) Description 11/08/2022 11:54 AM CDT - 11/08/2022 2:10 PM CDT Emergency [facility] Emergency Room [place], [place] [id number] Desiree Mackenzie MD [address] [address] Abdominal Pain; Vomiting Discharge Disposition: Home or Self Care (Routine [...] Recorded Patient Health Questionnaire-2 Score 0 05/05/2022 [facility] [place] of Occupat ional Health - Occupational Stress [...] in a care home (including now)? No 09/03/2022 Comments No Sex and Gender Information Value Date Recorded Sex Assigned at Female 12/17/2021 2:07 AM CDT Legal Sex Female 2:58 PM CDT Gender Identity Female 12/17/2021 2:07 AM CDT Sexual Orientation Straight 12/17/2021 2: 07 AM CDT documented as of this encounter Last Filed Vital Signs Vital Sign Reading Time Taken Comments Blood Pressure 141/87 11/08/2022 12:20 PM CDT Pulse 90 11/08/2022 12:20 PM CDT Temperature 36.6 ??C (97.8 ??F) 11/08/2022 10:15 AM C DT Respiratory Rate 19 11/08/2022 12:20 PM CDT Oxygen Saturation 97% 11/08/2022 12:20 PM CDT Inhaled Oxygen Concentration - - Weight 85.8 kg (189 lb 2.5 oz) 11/08/2022 10:15 AM CDT Height 167.6 cm (5' 6 ) 11/08/2022 10:15 AM CDT Body Mass Index 30.53 11/08/2022 10:15 AM CDT documented in this encounter Functional [...] Ballesteros RN Active documented in this encounter Discharge Instructions * Attachments The following attachments cannot be sent through Care Everywhere. * Peptic Ulcers Discharge Instructions (British) documented in this encounter Medications at Time of Discharge oxybutynin (DITROPAN) 5 MG tablet Take 1 tablet (5 mg total) by mouth 3 (three) times daily as needed (pain). 10/20/2022 amLODIPine (NORVASC) 10 MG tabletIndication s:Hypertension, unspecified type Take 1 tablet by mouth once daily 90 tablet 1 08/07/2022 06/15/19 cephALEXin (KEFLEX) 500 MG capsule Take 1 capsule (500 mg total) by mouth. 11/11/19 dulaglutide (TRULICITY) 4.5 MG/0.5ML injection (PEN)Indications :Diabetes Mellitus Inject 4.5 mg into the skin once a week. Indications: Diabetes 2 mL 5 09/20/2022 11/12/19 23 HUMALOG MIX 75/25 (75-25) 100 UNIT/ML SuspensionIndica tions:Type 2 diabetes mellitus with retinopathy, with long-term current use of insulin, macular edema presence unspecified, unspecified laterality, unspecified retinopathy severity ([facility]) INJECT 60 UNITS SUBCUTANEOUSLY ONCE DAILY IN THE MORNING THEN 55 ONCE DAILY IN THE EVENING 40 mL 2 08/17/2022 01/31/20 23 HYDROcodone-acet aminophen (NORCO) 5-325 MG tablet Take 1 tablet by mouth every 8 (eight) hours as needed. FOR SEVERE PAIN 10/20/2022 11/11/19 23 lisinopril (PRINIVIL) 20 MG tabletIndication s:hypertension Take 1 tablet (20 mg total) by mouth every evening. Indications: hypertension 30 tablet 03 09/09/2022 06/15/19 24 oxyCODONE-acetam inophen (PERCOCET) 5-325 MG tabletIndication s:Acute Pain < 7 Day Supply Take 1-2 tablets by mouth every 4 (four) hours as needed for Pain. Indications: Acute Pain < 7 Day Supply 20 tablet 11/08/2022 08/16/19 24 pantoprazole EC (PROTONIX) 40 MG tablet Take 1 tablet (40 mg total) by mouth 2 (two) times daily. 10/20/2022 03/05/19 24 simvastatin (ZOCOR) 40 MG tabletIndication s:Hypercholester emia [The details of the medication are not available because there are pending changes by a home health clinician.] 90 tablet 3 10/04/2021 06/15/19 24 sucralfate (CARAFATE) 1 G tablet Take 1 tablet (1 g total) by mouth daily. 10/20/2022 11/12/19 23 venlafaxine XR (EFFEXOR-XR) 37.5 MG 24 hr capsuleIndicatio ns:Hot flashes due to menopause Take 1 capsule (37.5 mg total) by mouth daily. 90 capsule 3 09/20/2022 03/05/19 24 documented as of this encounter ED Notes * Alma Pena RN - 11/08/2022 2:08 PM CDT Provider discussed today's findings with the patient. The patient has been given information regarding their treatment, follow up and concerning symptoms for which they should seek urgent or emergentattention. All questions answered. Pt ambulated out of ED with all personal belongings. IV d/c, vitals stable. * Darlene Suarez RN - 11/08/2022 11:54 AM CDT Bed: 15 Expected date: Expected time: Means of arrival: Comments: Fredis * Desiree Mackenzie MD - 11/08/2022 10:45 AM CDT Chief Complaint Chief Complaint Patient presents with Abdominal Pain Vomiting History of Present Illness This patient is a 52yo female with PMH HTN, DM, PUD who presents to the ED for evaluation of abdominal pain. She reports onset three days ago of severe pain in the mid aspect of the upper abdomen. The pain is constant but waxes and wanes, nonradiating, with no clear modifying factors. She notes associated chills, nausea/vomiting (nonbilious, nonbloody), and had diarrhea at the time of onset (no blood or mucous). No fever, URI symptoms, or cough. Her pain is similar to previous PUD for which she was recently admitted. Endoscopy reportedly revealed PUD. (The report is not yet available due to recent downtime.) Previous abdominal surgeries include hysterectomy and a bladder surgery. Medical History ALLERGIES: Review of patient's allergies indicates: Allergen Reactions Fish Oil Unknown Amoxicillin Rash Penicillins Rash MEDICATIONS: Prior to Admission medications Medication Sig Start Date End Date Taking? Authorizing Provider oxyCODONE-acetaminophen (PERCOCET) 5-325 MG tablet Take 1-2 tablets by mouth every 4 (four) hours as needed for Pain. Indications: Acute Pain < 7 Day Supply 11/08/22 Yes Desiree Mackenzie MD amLODIPine (NORVASC) 10 MG tablet Take 1 tablet by mouth once daily Patient taking differently: Take 1 tablet (10 mg total) by mouth nightly at bedtime. 08/07/22 Abiodun Segura II, MD dulaglutide (TRULICITY) 4.5 MG/0.5ML injection (PEN) Inject 4.5 mg into the skin once a week. Indications: Diabetes Patient taking differently: Inject 4.5 mg into the skin once a week. Indications: Diabetes 09/20/22 Abiodun Segura II, MD HUMALOG MIX 75/25 (75-25) 100 UNIT/ML Suspension INJECT 60 UNITS SUBCUTANEOUSLY ONCE DAILY IN THE MORNING THEN 55 ONCE DAILY IN THE EVENING Patient taking differently: Inject 55-65 Units into the skin see administration instructions. INJECT 65 UNITS SUBCUTANEOUSLY ONCE DAILY IN THE MORNING THEN 55 ONCE DAILY IN THE EVENING 08/17/22 Abiodun Segura II, MD lisinopril (PRINIVIL) 20 MG tablet Take 1 tablet (20 mg total) by mouth every evening. Indications:hypertension 09/09/22 09/09/23 Sofy Acevedo MD oxybutynin (DITROPAN) 5 MG tablet Take 1 tablet (5 mg total) by mouth 3 (three) times daily. 10/20/22Default History Genericprovider pantoprazole EC (PROTONIX) 40 MG tablet Take 1 tablet (40 mg total) by mouth 2 (two) times daily. 10/20/22 Default History Genericprovider simvastatin (ZOCOR) 40 MG tablet TAKE 1 TABLET BY MOUTH AT BEDTIME Patient taking differently: Take 1 tablet (40 mg total) by mouth nightly at bedtime. 10/04/21 Abiodun Segura II, MD sucralfate (CARAFATE) 1 G tablet Take 1 tablet (1 g total) by mouth daily. 10/20/22 Default History Genericprovider venlafaxine XR (EFFEXOR-XR) 37.5 MG 24 hr capsule Take 1 capsule (37.5 mg total) by mouth daily. Patient taking differently: Take 1 capsule (37.5 mg total) by mouth nightly at bedtime. 09/20/22 Abiodun Segura II, MD PAST MEDICAL HISTORY: Past [...] Systems Review of Systems Constitutional: Positive for chills. Negative for fever. HENT: Negative. Respiratory: Negative. Cardiovascular: Negative. Gastrointestinal: Positive for abdominal pain, diarrhea, nausea and vomiting. Negative for blood instool and constipation. Genitourinary: Negative. Musculoskeletal: Negative. Skin: Negative. Neurological: Negative. All other systems reviewed and are negative. Physical Exam Filed Vitals: 11/08/22 1015 11/08/22 1220 BP: (!) 153/94 (!) 141/87 Pulse: 93 90 Resp: 16 19 Temp: 97.8 ??F (36.6 ??C) TempSrc: Oral SpO2: 99% 97% Weight: 85.8 kg (189 lb 2.5 oz) Height: 5' 6 (1.676 m) Physical Exam Vitals and nursing note reviewed. Constitutional: Appearance: She is well-developed. Comments: Nontoxic but appears uncomfortable. HENT: Head: Normocephalic and atraumatic. Nose: Nose normal. Mouth/Throat: Mouth: Mucous membranes are moist. Eyes: Conjunctiva/sclera: Conjunctivae normal. Pupils: Pupils are equal, round, and reactive to light. Neck: Vascular: No JVD. Trachea: No tracheal deviation. Cardiovascular: Rate and Rhythm: Normal rate and regular rhythm. Heart sounds: Normal heart sounds. Pulmonary: Effort: Pulmonary effort is normal. Breath sounds: Normal breath sounds. Abdominal: General: There is no distension. Palpations: Abdomen is soft. There is no mass. Tenderness: There is no abdominal tenderness. There is no guarding or rebound. Musculoskeletal: General: Normal range of motion. Cervical back: Normal range of motion and neck supple. Skin: General: Skin is warm and dry. Capillary Refill: Capillary refill takes less than 2 seconds. Neurological: General: No focal deficit present. Mental Status: She is alert and oriented to person, place, and time. Sensory: No sensory deficit. Motor: No weakness. Diagnostic Studies / Procedures ELECTROCARDIOGRAMS: I have interpreted the patient's EKG timed 10:31 as NSR at rate of 92 bpm. Nonspecific T wave flattening. No concerning ST/T changes. No significant change compared with previous. Results for orders placed or performed during the hospital encounter of 11/08/22 ECG [address] [facility] Test Date: 2022-11-08 Pat Name: LENA YOUNGBLOOD Department: 41 Room: Gender: Female Blade Boner: [id number] : 1970 Requested By: DESIREE MACKENZIE Order Number: [id number] Reading MD: Marvin Mckeon Measurements Intervals [place] Rate: 92 P: 47 NE: 178 QRS: 23 QRSD: 78 T: 52 QT: 347 QTc: 430 Interpretive Statements SINUS RHYTHM NONSPECIFIC T-WAVE ABNORMALITY Compared to ECG 10/11/2022 15:39:46 Ventricular premature complex(es) no longer present T-wave abnormality still present LABORATORY STUDIES: Results for orders placed or performed during the hospital encounter of 11/08/22 CBC W/DIFF AUTOMATED Result Value Ref Range WBC 10.5 4.5 - 11.0 x10'3/uL RBC 4.31 4.20 - 5.40 x10'6/uL HGB 13.1 12.0 - 16.0 G/DL HCT 38.8 38.0 - 48.0 % MCV 90.0 81.0 - 99.0 FL MCH 30.4 27.0 - 31.0 PG MCHC 33.8 32.0 - 36.0 G/DL RDW 13.7 11.5 - 14.5 % PLT 295 130 - 400 x10'3/uL MPV 11.5 9.3 - 12.2 FL DIFFERENTIAL TYPE AUTOMATED DIFFERENTIAL NEUTROPHILS 76.0 % LYMPHOCYTES 18.7 % MONOCYTES 3.9 % EOSINOPHILS 0.6 % BASOPHILS 0.4 % IMMATURE GRANS 0.4 % ABS. NEUTROPHILS TOTAL 7.99 (H) 1.80 - 7.70 x10'3/uL ABS. LYMPHOCYTES 1.96 1.00 - 4.80 x10'3/uL ABS. MONOCYTES 0.41 0.24 - 0.86 x10'3/uL ABS. EOSINOPHILS 0.06 0.04 - 0.36 x10'3/uL ABS. BASOPHILS 0.04 0.01 - 0.08 x10'3/uL ABS. IMMATURE GRANULOCYTES 0.04 0.00 - 0.49 x10'3/uL COMPREHENSIVE METABOLIC PANEL Result Value Ref Range GLUCOSE 235 (H) 70 - 99 MG/DL BUN 16 7 - 18 MG/DL CREATININE S/P/B 1.10 (H) 0.55 - 1.02 MG/DL SODIUM S/P/B 139 136 - 145 MMOL/L POTASSIUM S/P/B 5.2 (H) 3.5 - 5.1 MMOL/L CHLORIDE S/P/B 103 100 - 108 MMOL/L CO2 30.4 21 - 32 MMOL/L CALCIUM S/P/B 9.7 8.5 - 10.1 MG/DL BILIRUBIN TOTAL S/P/B 0.7 0.2 - 1.2 MG/DL TOTAL PROTEIN S/P/B 9.3 (H) 6.4 - 8.2 G/DL ALBUMIN S/P/B 3.6 3.4 - 5.0 G/DL AST 29 15 - 37 U/L ALT 38 14 - 55 U/L ALKALINE PHOSPHATASE S/P/B 159 (H) 50 - 136 U/L ANION GAP 5.6 5 - 15 MMOL/L BUN CREATININE RATIO 14.5 6 - 26 A/G RATIO 0.6 (L) 1.0 - 2.0 RATIO GFR ESTIMATE 61 (L) >90 ML/MIN/1.73 M2 LIPASE Result Value Ref Range LIPASE 31 13 - 75 UNITS/L IMAGING STUDIES CT ABD+PEL W IV CON ONLY Final Result by User, [id number] (11/08 6147) EXAMINATION: CT ABD+PEL W CON CLINICAL HISTORY: Pain COMPARISON: 10/11/2022, 09/24/2022 DATE/TIME: 11/08/2022 1:27 PM TECHNIQUE: Multiplanar CT images of the abdomen and pelvis were obtained. IV contrast: uneventful intravenous administration of 100 mL Isovue 370. Oral contrast: None. A dose lowering technique was used for this procedure, which may include, but is not limited to, dose reduction technique, automated exposure control, the use of iterative reconstruction, and ALARA (As Low As Reasonably Achievable) / Image Gently techniques. FINDINGS: Bibasilar atelectasis. Moderate diffuse hepatic steatosis. Liver is otherwise negative. Gallbladder is negative. Bile ducts are negative. Pancreas is negative. Benign splenic calcifications. Small water density lesion in the upper pole the spleen measuring 1.3 cm, stable from prior exams and consistent with cysts. Spleen is otherwise negative. Adrenal glands are negative. Stable enlargement of the right kidney with marked dilatation of the renal calyces and mild dilatation of the right renal pelvis. 1 tiny peripheral right renal stone versus vascular calcification, stable. Additional small nonobstructive left renal stone. Kidneys are otherwise negative. Bladder is decompressed and not well evaluated. Hysterectomy. No pelvic mass. Calcified pelvic phleboliths. Abdominal aorta is normal caliber with atherosclerotic calcification. No free air or fluid. No bowel obstruction or bowel wall thickening. Normal appendix. Stomach is decompressed but appears grossly unremarkable. No acute osseous abnormality or destructive bone lesion. Calcified bilateral ovarian vein phleboliths. IMPRESSION: 1. No definite acute abnormality identified. 2. Unchanged appearance of the right kidney with marked calyceal dilatation. 3. Nonobstructive bilateral nephrolithiasis. 4. Hepatic steatosis. 5. Other chronic or nonurgent findings as described above. Referred By: Interpreted By: Arley Gastelum MD, 11/08/2022 1:39 PM ED Course / Medical Decision Making The patient rested more comfortably following symptomatic treatment. She has a benign abdominal exam. Workup today is unremarkable. I suspect her pain is due to previously diagnosed PUD. We will planfor discharge home with continuation of her current regimen and a short course of oxycodone for enhanced pain control. Medical Decision Making Problems Addressed: PUD (peptic ulcer disease): chronic illness or injury with exacerbation, progression, or side effects of treatment Amount and/or Complexity of Data Reviewed External Data Reviewed: ECG. Details: Previous EKG for comparison. Labs: ordered. Decision-making details documented in ED Course. Details: No evidence of anemia, hepatitis, pancreatitis, etc. Radiology: ordered. Decision-making details documented in ED Course. Details: No evidence of perforation or other radiographic cause of abdominal pain. ECG/medicine tests: ordered and independent interpretation performed. Decision- making details documented in ED Course. Details: No evidence of ischemia. Risk Prescription drug management. Parenteral controlled substances. Clinical Impression PUD (peptic ulcer disease) (Primary) Disposition: Discharge Desiree Mackenzie MD 11/10/22 1206 * Darlene Suarez RN - 11/08/2022 10:18 AM CDT Stated BS was 180 at home * Darlene Suarez RN - 11/08/2022 10:12 AM CDT Patient to ED with c/o upper abdominal/epigastric pain and vomiting for 3 days. Patient had recent admission and was discharged on 10/21 for similar issue. Patient had upper endoscopy and was diagnosedwith gastric ulcer, was discharged with meds and has been taking them as prescribed. Was also dx with kidney stone, but currently denies flank pain or urinary retention. documented in this encounter Plan of Treatment Upcoming Encounters Date Type Department Care Team (Late st Contact Info) Description 03/14/2024 11:45 AM SOFTWARE ENGINEER DEVELOPER Office Visit [facility]-[address] [phone] Marvin Mckeon MD [address] [facility] [address] [place] [address] 03/20/2024 11:30 AM SOFTWARE ENGINEER DEVELOPER Office Visit [facility] - [place] [address] [place] [phone] Abiodun Segura II, MD [address], [place] [id number] documented as of this encounter Goals Goal Patient Goal Type Associated Problems Recent Progress Patient-Stated? Author Family - family caregiver with be involved in care transitions and discharge planning Lifestyle Natty Angeles, RN documented as of this encounter Procedures Procedure Name Priority Date/Time Associated Diagnosis Comments CT ABD+PEL W CON STAT 11/08/2022 1:34 PM CDT COMPREHENSIVE METABOLIC PANEL STAT 11/08/2022 10:50 AM CDT CBC W/DIFF AUTOMATED STAT 11/08/2022 10:50 AM CDT LIPASE STAT 11/08/2022 10:50 AM CDT ECG 12-LEAD STAT 11/08/2022 10:31 AM CDT documented in this encounter Results * CT ABD+PEL W IV CON ONLY (11/08/2022 1:34 PM CDT) Anatomical Region Laterality Modality Abdomen Computed Tomogra phy 11/08/2022 1:39 PM CDT Impressions 11/08/2022 1:48 PM CDT IMPRESSION: 1. ??No definite acute abnormality identified. 2. ??Unchanged appearance of the right kidney with marked calyceal dilatation. 3. ??Nonobstructive bilateral nephrolithiasis. 4. ??Hepatic steatosis. 5. ??Other chronic or nonurgent findings as described above. Referred By: ?? Interpreted By: Arley Gastelum MD, 11/08/2022 1:39 PM Narrative 11/08/2022 1:48 PM CDT EXAMINATION: CT ABD+PEL W CON CLINICAL HISTORY: Pain COMPARISON: 10/11/2022, 09/24/2022 DATE/TIME: 11/08/2022 1:27 PM TECHNIQUE: Multiplanar CT images of the abdomen and pelvis were obtained. ??IV contrast: uneventful intravenous administration of 100 mL Isovue 370. ??Oral contrast: None. ?? A dose lowering technique was used for this procedure, which may include, but is not limited to, dose reduction technique, automated exposure control, the use of iterative reconstruction, and ALARA (As Low As Reasonably Achievable) / Image Gently techniques. FINDINGS: Bibasilar atelectasis. ??Moderate diffuse hepatic steatosis. ??Liver is otherwise negative. ??Gallbladder is negative. ??Bile ducts are negative. ??Pancreas is negative. ??Benign splenic calcifications. ??Small water density lesion in the upper pole the spleen measuring 1.3 cm, stable from prior exams and consistent with cysts. ??Spleen is otherwise negative. Adrenal glands are negative. ??Stable enlargement of the right kidney with marked dilatation of the renal calyces and mild dilatation of the right renal pelvis. ??1 tiny peripheral right renal stone versus vascular calcification, stable. ??Additional small nonobstructive left renal stone. ??Kidneys are otherwise negative. ??Bladder is decompressed and not well evaluated. ??Hysterectomy. ??No pelvic mass. ??Calcified pelvic phleboliths. ??Abdominal aorta is normal caliber with atherosclerotic calcification. No free air or fluid. ??No bowel obstruction or bowel wall thickening. ??Normal appendix. ??Stomach is decompressed but appears grossly unremarkable. ??No acute osseous abnormality or destructive bone lesion. ??Calcified bilateral ovarian vein phleboliths. Procedure Note Arley Gastelum MD - 11/08/2022 EXAMINATION: CT ABD+PEL W CON CLINICAL HISTORY: Pain COMPARISON: 10/11/2022, 09/24/2022 DATE/TIME: 11/08/2022 1:27 PM TECHNIQUE: Multiplanar CT images of the abdomen and pelvis were obtained.IV contrast: uneventful intravenous administration of 100 mL Isovue 370.Oral contrast: None. A dose lowering technique was used for this procedure, which may include,but is not limited to, dose reduction technique, automated exposurecontrol, the use of iterative reconstruction, and ALARA (As Low AsReasonably Achievable) / Image Gently techniques. FINDINGS: Bibasilar atelectasis. Moderate diffuse hepatic steatosis.Liver is otherwise negative. Gallbladder is negative. Bile ducts arenegative. Pancreas is negative. Benign splenic calcifications. Smallwater density lesion in the upper pole the spleen measuring 1.3 cm, stablefrom prior exams and consistent with cysts. Spleen is otherwisenegative. Adrenal glands are negative. Stable enlargement of the right kidney withmarked dilatation of the renal calyces and mild dilatation of the rightrenal pelvis. 1 tiny peripheral right renal stone versus vascularcalcification, stable. Additional small nonobstructive left renal stone.Kidneys are otherwise negative. Bladder is decompressed and not wellevaluated. Hysterectomy. No pelvic mass. Calcified pelvic phleboliths.Abdominal aorta is normal caliber with atherosclerotic calcification. No free air or fluid. No bowel obstruction or bowel wall thickening.Normal appendix. Stomach is decompressed but appears grosslyunremarkable. No acute osseous abnormality or destructive bone lesion.Calcified bilateral ovarian vein phleboliths. IMPRESSION: 1. No definite acute abnormality identified. 2. Unchanged appearance of the right kidney with marked calycealdilatation. 3. Nonobstructive bilateral nephrolithiasis. 4. Hepatic steatosis. 5. Other chronic or nonurgent findings as described above. Referred By: Interpreted By: Arley Gastelum MD, 11/08/2022 1:39 PM us Desiree Mackenzie MD CT Final Re sult * LIPASE (11/08/2022 10:50 AM CDT) LIPASE 31 13 - 75 UNITS/L 11/08/2022 11:34 AM CDT [facility] 11/08/2022 10:5 0 AM CDT us Desiree Mackenzie MD LABORATORY Final Re sult [facility] [address] [place] [address], [place] [phone] * (ABNORMAL) COMPREHENSIVE METABOLIC PANEL (11/08/2022 10:50 AM CDT) GLUCOSE 235(H) 70 - 99 MG/DL 11/08/2022 11:34 AM CDT [facility] BUN 16 7 - 18 MG/DL 11/08/2022 11:34 AM CDT [facility] CREATININE S/P/B 1.10(H) 0.55 - 1.02 MG/DL 11/08/2022 11:34 AM CDT [facility] SODIUM S/P/B 139 136 - 145 MMOL/L 11/08/2022 11:34 AM T [facility] POTASSIUM S/P/B 5.2(H) 3.5 - 5.1 MMOL/L 11/08/2022 11:34 AM CDT [facility] Comment:SLIGHT HEMOLYSIS, RE SULT MAY BE AFFECTED. CHLORIDE S/P/B 103 100 - 108 MMOL/L 11/08/2022 11:34 AM T [facility] CO2 30.4 21 - 32 MMOL/L 11/08/2022 11:34 AM T [facility] CALCIUM S/P/B 9.7 8.5 - 10.1 MG/DL 11/08/2022 11:34 AM T [facility] BILIRUBIN TOTAL S/P/B 0.7 0.2 - 1.2 MG/DL 11/08/2022 11:34 AM T [facility] Comment: THIS ASSAY IS NOT RECOMMENDED FOR PATIENTS UNDERGOING TREATMENT WITH ELTROMBOPAG DUE TO THE POTENTIAL FOR FALSELY ELEVATED RESULTS. TOTAL PROTEIN S/P/B 9.3(H) 6.4 - 8.2 G/DL 11/08/2022 11:34 AM T [facility] ALBUMIN S/P/B 3.6 3.4 - 5.0 G/DL 11/08/2022 11:34 AM CDT [facility] AST 29 15 - 37 U/L 11/08/2022 11:34 AM T [facility] Comment:SLIGHT HEMOLYSIS, RE SULT MAY BE AFFECTED. ALT 38 14 - 55 U/L 11/08/2022 11:34 AM T [facility] ALKALINE PHOSPHATASE S/P/B 159(H) 50 - 136 U/L 11/08/2022 11:34 AM CDT [facility] ANION GAP 5.6 5 - 15 MMOL/L 11/08/2022 11:34 AM CDT [facility] BUN CREATININE RATIO 14.5 6 - 26 11/08/2022 11:34 AM CDT [facility] A/G RATIO 0.6(L) 1.0 - 2.0 RATIO 11/08/2022 11:34 AM CDT [facility] GFR ESTIMATE 61(L) >90 ML/MIN/1.7 3 M2 11/08/2022 11:34 AM CDT [facility] Comment: NOTE: eGFR is not calculated for patients <18 years of age. This is an estimated GFR calculation using the new CKD EPI creatinine equation without race and so does not require a correction factor for race. This estimated GFR should not be used for calculating drug doses. 11/08/2022 10:5 0 AM CDT us Desiree Mackenzie MD LABORATORY Final Re sult [facility] [address] [place] [address], [place] [phone] * (ABNORMAL) CBC W/DIFF AUTOMATED (11/08/2022 10:50 AM CDT) WBC 10.5 4.5 - 11.0 x10'3/uL 11/08/2022 11:06 AM CDT [facility] RBC 4.31 4.20 - 5.40 x10'6/uL 11/08/2022 11:06 AM CDT [facility] HGB 13.1 12.0 - 16.0 G/DL 11/08/2022 11:06 AM CDT [facility] HCT 38.8 38.0 - 48.0 % 11/08/2022 11:06 AM CDT [facility] MCV 90.0 81.0 - 99.0 FL 11/08/2022 11:06 AM CDT [facility] MCH 30.4 27.0 - 31.0 PG 11/08/2022 11:06 AM CDT [facility] MCHC 33.8 32.0 - 36.0 G/DL 11/08/2022 11:06 AM CDT [facility] RDW 13.7 11.5 - 14.5 % 11/08/2022 11:06 AM CDT [facility] PLT 295 130 - 400 x10'3/uL 11/08/2022 11:06 AM T [facility] MPV 11.5 9.3 - 12.2 FL 11/08/2022 11:06 AM T [facility] DIFFERENTIAL TYPE AUTOMATED DIFFERENTIAL 11/08/2022 11:06 AM CDT [facility] NEUTROPHILS % 76.0 % 11/08/2022 11:06 AM CDT [facility] LYMPHOCYTES % 18.7 % 11/08/2022 11:06 AM T [facility] MONOCYTES % 3.9 % 11/08/2022 11:06 AM CDT [facility] EOSINOPHILS 0.6 % 11/08/2022 11:06 AM CDT [facility] BASOPHILS 0.4 % 11/08/2022 11:06 AM CDT [facility] IMMATURE GRANS % 0.4 % 11/09/19 11:06 AM CDT [facility] ABS. NEUTROPHILS TOTAL 7.99(H) 1.80 - 7.70 x10'3/uL 11/08/2022 11:06 AM CDT [facility] ABS. LYMPHOCYTES 1.96 1.00 - 4.80 x10'3/uL 11/08/2022 11:06 AM CDT [facility] ABS. MONOCYTES 0.41 0.24 - 0.86 x10'3/uL 11/08/2022 11:06 AM CDT [facility] ABS. EOSINOPHILS 0.06 0.04 - 0.36 x10'3/uL 11/08/2022 11:06 AM CDT [facility] ABS. BASOPHILS 0.04 0.01 - 0.08 x10'3/uL 11/08/2022 11:06 AM CDT [facility] ABS. IMMATURE GRANULOCYTES 0.04 0.00 - 0.49 x10'3/uL 11/08/2022 11:06 AM CDT [facility] 11/08/2022 10:5 0 AM CDT us Desiree Mackenzie MD LABORATORY Final Re sult [facility] [address] [place] [address], * ECG 12 lead (11/08/2022 10:31 AM CDT) 11/08/2022 10:3 1 AM CDT Narrative [facility] ([facility]) RAD - 11/08/2022 12:11 PM CDT ?[facility] ? [address] [facility] ? Test Date: ?2022-11-08 Pat Name: ? LENA YOUNGBLOOD ?Department: ?? 41 ? Room: ? Gender: ? Female ? Blade Boner: ?? [id number] : ?1970 ? Requested By: DESIREE MACKENZIE Order Number: [id number] ? Reading MD: ?? Marvin Mckeon ? Measurements Intervals ?[place] ? Rate: ? 92 ? P: ?47 NE: ? 178 ?QRS: ?23 QRSD: ? 78 ? T: ?52 QT: ? 347 ? QTc: ?430 ? Interpretive Statements SINUS RHYTHM NONSPECIFIC T-WAVE ABNORMALITY Compared to ECG 10/11/2022 15:39:46 Ventricular premature complex(es) no longer present T-wave abnormality still present Procedure Note Marvin Mckeon MD - 11/08/[address] [facility] [facility] Test Date: 2022-11-08 Pat Name: LENA YOUNGBLOOD Department: 41 Room: Gender: Female Blade Boner: [id number] : 1970 Requested By: DESIREE MACKENZIE Order Number: [id number] Reading MD: Marvin Mckeon Measurements Intervals [place] Rate: 92 P: 47 NE: 178 QRS: 23 QRSD: 78 T: 52 QT: 347 QTc: 430 Interpretive Statements SINUS RHYTHM NONSPECIFIC T-WAVE ABNORMALITY Compared to ECG 10/11/2022 15:39:46 Ventricular premature complex(es) no longer present T-wave abnormality still present us Desiree Mackenzie MD ECG ORDERABLES Final Re sult [facility] documented in this encounter Visit Diagnoses Diagnosis PUD (peptic ulcer disease)- Primary Peptic ulcer, unspecified site, unspecified as acute or chronic, without mention of hemorrhage, perforation, or obstruction documented in this encounter Administered Medications Inactive Administered Medications - up to 3 most recent administrations Medication Order MAR Action Action Date Dose Rate Site diphenhydrAMINE (BENADRYL) injection 25 mg 25 mg, Intravenous, Once, 1 dose, On Sun11/08/22 at 1300, For IV administration, give no faster than 25 mg/min. Given 11/08/2022 1:03 PM CDT 25 mg iopamidol (ISOVUE-370) 76 % injection 100 mL 100 mL, Intravenous, IMG once as needed, Contrast, 1 dose, Starting on Sun11/08/22 at 1334, Until Sun11/08/22 at 1334 Given 11/08/2022 1:34 PM CDT 100 mLs Right Arm morphine injection 4 mg 4 mg, Intravenous, Once, 1 dose, On Sun11/08/22 at 1045 Given 11/08/2022 11:04 AM CDT 4 mg morphine injection 4 mg 4 mg, Intravenous, Once, 1 dose, On Sun11/08/22 at 1245 Given 11/08/2022 12:49 PM CDT 4 mg ondansetron (ZOFRAN) injection 4 mg 4 mg, Intravenous, Once, 1 dose, On Sun11/08/22 at 1030, IV push over 2-5 minutes. Given 11/08/2022 11:04 AM CDT 4 mg pantoprazole (PROTONIX) injection 40 mg 40 mg, Intravenous, Once, 1 dose, On Sun11/08/22 at 1030, Reconstitute each 40 mg vial with 10 mL normal saline to a final concentration of 4 mg/mL. Administer intravenously over a period of a least 2 minutes. Given 11/08/2022 11:03 AM CDT 40 mg documented in this encounter Active and Recently Administered Medications Times are shown in CDT. Scheduled Medication Order 11/06/2022 11/07/2022 11/08/2022 diphenhydrAMINE (BENADRYL) injection 25 mg (COMPLETED) 25 mg, Intravenous, Once, 1 dose, On Sun11/08/22 at 1300, For IV administration, give no faster than 25 mg/min. 1303 (Given - Provid er: Alma Pena RN) morphine injection 4 mg (COMPLETED) 4 mg, Intravenous, Once, 1 dose, On Sun11/08/22 at 1045 1104 (Given - Provid er: Em Sterling RN) morphine injection 4 mg (COMPLETED) 4 mg, Intravenous, Once, 1 dose, On Sun11/08/22 at 1245 1249 (Given - Provid er: Alma Pena RN) ondansetron (ZOFRAN) injection 4 mg (COMPLETED) 4 mg, Intravenous, Once, 1 dose, On Sun11/08/22 at 1030, IV push over 2-5 minutes. 1104 (Given - Provid er: Em Sterling RN) pantoprazole (PROTONIX) injection 40 mg (COMPLETED) 40 mg, Intravenous, Once, 1 dose, On Sun11/08/22 at 1030, Reconstitute each 40 mg vial with 10 mL normal saline to a final concentration of 4 mg/mL. Administer intravenously over a period of a least 2 minutes. 1103 (Given - Provid er: Em Sterling RN) PRN Medication Order 11/06/2022 11/07/2022 11/08/2022 iopamidol (ISOVUE-370) 76 % injection 100 mL (COMPLETED) 100 mL, Intravenous, IMG once as needed, Contrast, 1 dose, Starting on Sun11/08/22 at 1334, Until Sun11/08/22 at 1334 1334 (Given - Provid er: Macey Rosales, RTR) documented in this encounter Additional Health Concerns Assessment Noted Time PHQ-9 Depression Total Score: 0 03/08/19 9:30 AM SOFTWARE ENGINEER DEVELOPER documented as of this encounter Care Teams Labview Programmer Relationship Specialty Start Date End Date Abiodun Segura II, MD [address] [place] [address] PCP - General FAMILY PRACTICE 03/09/21 [place] [address] [place] [address] PODIATRY/SURGERY 05/05/22 documented as of this encounter
--- OUTSIDE RECORDS SUMMARY | 2024-03-02 22:23 | XMS_ITS | Encounter Summary ---
Author Organization [facility] Address [address] [place] [address]. [place] [address] [place] [address] Care Team Providers Care Digital Printer Name Role Phone Colton SILVEIRA MD, Abiodun Rushing Primary Care Provider Victoriano Langston MD Unavailable [phone] Reason for Visit * Reason Onset Date Comments Information 11/24/2022 Encounter Details Date Type Department Care Team (Late st Contact Info) Description 11/24/2022 Telephone [facility] Family Medicine - [place] [address] [place] [address] Abiodun Segura II, MD [address] [place] [address] Information Social History Tobacco Use Types Packs/Day [...] Recorded Patient Health Questionnaire-2 Score 0 05/05/2022 [facility] - Occupational Stress Questionnaire Answer [...] in a care home (including now)? No 11/10/2022 Comments No [...] documented in this encounter Progress Notes * Mariangel Phillips MA - 11/24/2022 11:42 AM CDT Verbal order given grecia to switch to 31 gauge. * Conchita Mancilla - 11/24/2022 11:30 AM CDT Need to say 31 valeria for the insulin syringe, not 30 Call Grecia from [facility] when able [phone] documented in this encounter Plan of Treatment Upcoming Encounters Date Type Department Care Team (Late st Contact Info) Description 03/14/2024 11:45 AM COLOR PRINTER OPERATOR Office Visit [facility] [address] Marvin Mckeon MD [address] [facility] [address] [place] [address] 03/20/2024 11:30 AM COLOR PRINTER OPERATOR Office Visit [facility] Family Medicine - [place] [address] [place] [phone] Abiodun Segura II, MD [address] [place] [address] documented as of this encounter Goals Goal Patient Goal Type Associated Problems Recent Progress Patient-Stated? Author Family - family caregiver with be involved in care transitions and discharge planning Lifestyle No Natty Cheek, RN documented as of this encounter Visit Diagnoses Not on filedocumented in this encounter Additional Health Concerns Assessment Noted Time PHQ-9 Depression Total Score: 0 03/08/19 22 9:30 AM COLOR PRINTER OPERATOR documented as of this encounter Care Teams Digital Printer Relationship Specialty Start Date End Date Abiodun Segura II, MD [address] [place], [place] [address] PCP - General FAMILY PRACTICE 03/09/21 [place] [address] [place] [address] PODIATRY/SURGERY 05/05/22 documented as of this encounter
--- OUTSIDE RECORDS SUMMARY | 2024-03-02 22:23 | XMS_ITS | Encounter Summary ---
Author Organization [facility] Address [address] [place] [address]. [place] [address] [place] [address] Care Team Providers Care Shutdown Planner Name Role Phone Colton SILVEIRA MD, Abiodun Rushing Primary Care Provider Victoriano Langston MD Unavailable [phone] Reason for Visit * Reason Onset Date Comments Advice 12/22/2022 Encounter Details Date Type Department Care Team (Late st Contact Info) Description 12/22/2022 Telephone [facility] Family Medicine - [place] [address] [place] [address] Abiodun Segura II, MD [address] [place] [address] Advice Social History Tobacco Use [...] Recorded Patient Health Questionnaire-2 Score 0 12/13/2022 [facility] - Occupational Stress Questionnaire Answer Date Recorded [...] Progress Notes * Sydney Cobos MA - 12/22/2022 12:42 PM CDT Patient informed * Mariangel Phillips MA - 12/22/2022 9:12 AM CDT Called and spoke with pt . Advised she goes to urgent care for treatment as she needs an appt but no availability today. Pt states provider knows about her recurrent UTI's Pt states she is having urinary urgency and frequency. Started yesterday. Charan mauricio * Cristela Pereira - 12/22/2022 8:41 AM CDT Patient called and thinks she has a UTI , needs antibiotic. Please call patient with advise [phone] documented in this encounter Plan of Treatment Upcoming Encounters Date Type Department Care Team (Late st Contact Info) Description 03/14/2024 11:45 AM MASTER MOTORCYCLE TECHNICIAN Office Visit [facility] [phone] Marvin Mckeon MD [address] [facility] [address] [place], [place] [phone] 03/20/2024 11:30 AM MASTER MOTORCYCLE TECHNICIAN Office Visit [facility] Family Medicine - [place] [address] [place] [phone] Abiodun Segura II, MD [address] [place], [place] [phone] documented as of this encounter Goals Goal Patient Goal Type Associated Problems Recent Progress Patient-Stated? Author Family - family caregiver with be involved in care transitions and discharge planning Lifestyle No Natty Cheek, RN documented as of this encounter Visit Diagnoses Not on filedocumented in this encounter Additional Health Concerns Assessment Noted Time PHQ-9 Depression Total Score: 0 03/08/19 22 9:30 AM MASTER MOTORCYCLE TECHNICIAN documented as of this encounter Care Teams Shutdown Planner Relationship Specialty Start Date End Date Abiodnu Segura II, MD [address] [place], [place] [phone] PCP - General FAMILY PRACTICE 03/09/21 [place] [address] [place] [address] PODIATRY/SURGERY 05/05/22 documented as of this encounter
--- OUTSIDE RECORDS SUMMARY | 2024-03-02 22:23 | XMS_ITS | Encounter Summary ---
Author Organization [facility] Address [address] [place] [address]. [id number] Care Team Providers Care Salesperson Art Objects Name Role Phone Colton SILVEIRA MD, Abiodun Rushing Primary Care Provider Victoriano Langston MD Unavailable [phone] Reason for Referral * Consultation (Routine) - Closed Specialty Diagnoses / Procedures Referred By Lyla chaney Referred To Contact GASTROENTEROLOGY Diagnoses Vomiting History of stomach ulcers Abiodun Segura II, MD [address] [place] [address] Phone: tel: fax: Gurinder Saldivar MD [address] [address] Phone: tel: fax: Referral ID Status Reason Start Date Expiration Date Visits Re quested Visits Authorized [id number] Closed 11/06/2022 12/07/2023 99 99 Reason for Visit * Reason Onset Date Comments Referral 11/06/2022 Encounter Details Date Type Department Care Team (Late st Contact Info) Description 11/06/2022 Telephone [facility] Family Medicine - [place] [address] [place] [address] Abiodun Segura II, MD [address] [place] [phone] Referral Social History Tobacco Use Types Packs/Day [...] Recorded Patient Health Questionnaire-2 Score 0 05/05/2022 [facility] of Occupat ional Health - Occupational Stress [...] Progress Notes * Mariangel Phillips MA - 11/06/2022 3:51 PM CDT Left detailed message for pt * Sydney Cobos MA - 11/06/2022 11:31 AM CDT Please sign off on pended referral order * Conchita Mancilla - 11/06/2022 9:38 AM CDT Pt requesting GI referral for checkup on ulcers and still throwing up Dr. Saldivar for ulcers - GI Doctor [address] [facility] [address], [place] [address] Please call when ready: [phone] documented in this encounter Plan of Treatment Upcoming Encounters Date Type Department Care Team (Late st Contact Info) Description 03/14/2024 11:45 AM VP OF GLOBAL MARKETING Office Visit [facility] [phone] Marvin Mckeon MD Three [facility] [address] [place] [address] 03/20/2024 11:30 AM VP OF GLOBAL MARKETING Office Visit [facility] Family Medicine - [address] [phone] Abiodun Segura II, MD [address] [place] [address] Scheduled Referrals Name Type Priority Associated Diagnoses [...] as of this encounter Visit Diagnoses Diagnosis Vomiting- Primary Vomiting alone History of stomach ulcers Personal history of other diseases of digestive system documented in this encounter Additional Health Concerns Assessment Noted Time PHQ-9 Depression Total Score: 0 03/08/19 22 9:30 AM VP OF GLOBAL MARKETING documented as of this encounter Care Teams Salesperson Art Objects Relationship Specialty Start Date End Date Abiodun Segura II, MD [address] [place] [address] PCP - General FAMILY PRACTICE 03/09/21 [place] [address] [place] [address] PODIATRY/SURGERY 05/05/22 documented as of this encounter
--- OUTSIDE RECORDS SUMMARY | 2024-03-02 22:23 | XMS_ITS | Encounter Summary ---
Author Organization [facility] Address [address] [place] [address]. [place] [address] [place] [address] Care Team Providers Care Cistern Room Working Supervisor Name Role Phone Colton SILVEIRA MD, Abiodun Rushing Primary Care Provider Victoriano Langston MD Unavailable Encounter Details Date Type Department Care Team (Late st Contact Info) Description 12/22/2022 Orders Only [facility] Family Medicine - [place] [address] [place] [address] Abiodun Segura II, MD 100 [place] [address] Social History Tobacco Use Types [...] Recorded Patient Health Questionnaire-2 Score 0 12/13/2022 [facility] of Occupat ional Health - [...] st Contact Info) Description 03/14/2024 11:45 AM IN STORE DEMONSTRATOR Office Visit [facility] [phone] Marvin Mckeon MD [facility] [address] [place] [address] 03/20/2024 11:30 AM IN STORE DEMONSTRATOR Office Visit [facility] Family Medicine - [place] [address] [place] [address] Abiodun Segura II, MD [address] [place] [address] documented as of this encounter Goals Goal Patient Goal Type Associated Problems Recent Progress Patient-Stated? Author Family - family caregiver with be involved in care transitions and discharge planning Lifestyle Natty Angeles, RN documented as of this encounter Visit Diagnoses Diagnosis Cystitis- Primary Cystitis, unspecified documented in this encounter Additional Health Concerns Assessment Noted Time PHQ-9 Depression Total Score: 0 03/08/19 22 9:30 AM IN STORE DEMONSTRATOR documented as of this encounter Care Teams Cistern Room Working Supervisor Relationship Specialty Start Date End Date Abiodun Segura II, MD [address] [place] [address] PCP - General FAMILY PRACTICE 03/09/21 [place] [address] [place] [address] PODIATRY/SURGERY 05/05/22 documented as of this encounter
--- OUTSIDE RECORDS SUMMARY | 2024-03-02 22:23 | XMS_ITS | Encounter Summary ---
Author Organization [facility] Address [address] [place] [address]. [place] [address] [place] [address] Care Team Providers Care X Ray Control Equipment Repairer Name Role Phone Colton SILVEIRA MD, Abiodun Rushing Primary Care Provider Victoriano Langston MD Unavailable [phone] Reason for Visit * Reason Onset Date Comments Results 12/12/2022 Encounter Details Date Type Department Care Team (Late st Contact Info) Description 12/12/2022 Telephone [facility] Multispecialty Care - [facility] 3 [facility], [address] [place] [phone] Gurinder Saldivar MD 3 [facility] [address] [place] [address] Results Social History Tobacco Use [...] Recorded Patient Health Questionnaire-2 Score 0 12/13/2022 [facility] of Occupat ional [...] slept in a residential (including now)? No 11/10/2022 Comments No Sex [...] documented in this encounter Progress Notes * Ira Easton MA - 12/13/2022 9:16 AM CDT Patient called, notified of results. Patient has an appointment today to discuss further issues. * Mary Hwang - 12/13/2022 9:02 AM CDT Pt called today saying that she wants her test results,Please call to discuss * Kiera Augustin LPN - 12/12/2022 4:36 PM CDT Attempted to call pt and notify of path reports from procedure on 10/16/22. Need to notify that stomach ulcer biopsies are ok and to take her acid reflux medication daily. VM left for pt to r/c to office. documented in this encounter Plan of Treatment Upcoming Encounters Date Type Department Care Team (Late st Contact Info) Description 03/14/2024 11:45 AM FINAL INSPECTOR PAPER Office Visit [facility] [phone] Marvin Mckeon MD Three [facility] [address] [place] [phone] 03/20/2024 11:30 AM FINAL INSPECTOR PAPER Office Visit [facility] Family Medicine - [place] [address] [place] [phone] Abiodun Segura II, MD [address] [place] [phone] documented as of this encounter Goals Goal Patient Goal Type Associated Problems Recent Progress Patient-Stated? Author Family - family caregiver with be involved in care transitions and discharge planning Lifestyle No Natty Cheek, RN documented as of this encounter Visit Diagnoses Not on filedocumented in this encounter Additional Health Concerns Assessment Noted Time PHQ-9 Depression Total Score: 0 03/08/19 22 9:30 AM FINAL INSPECTOR PAPER documented as of this encounter Care Teams X Ray Control Equipment Repairer Relationship Specialty Start Date End Date Abiodun Segura II, MD [address] [place] [address] PCP - General FAMILY PRACTICE 03/09/21 [place] [address] [place] [address] PODIATRY/SURGERY 05/05/22 documented as of this encounter
--- OUTSIDE RECORDS SUMMARY | 2024-03-02 22:23 | XMS_ITS | Encounter Summary ---
Author Organization [facility] Address [address] [place] [address]. [place] [address] [place] [address] Care Team Providers Care Manager Database Name Role Phone Colton SILVEIRA MD, Abiodun Rushing Primary Care Provider Victoriano Langston MD Unavailable [phone] Reason for Visit * Reason Onset Date Comments Appointment Request 11/02/2022 Question 11/02/2022 Encounter Details Date Type Department Care Team (Late st Contact Info) Description 11/02/2022 Telephone [facility] Multispecialty Care - [address], [address] [place] [phone] Gurinder Saldivar MD 3 [facility] [address] [place] [address] Appointment Request; Question Social History Tobacco Use Types Packs/Day [...] Recorded Patient Health Questionnaire-2 Score 0 05/05/2022 [facility] of Occupat [...] slept in a retirement (including now)? No 09/03/2022 Comments No Sex [...] Progress Notes * Kiera Augustin LPN - 11/07/2022 10:01 AM CDT Pt called and offered sooner appt at a different clinic. Pt turned down sooner appt. * Abhay Smith - 11/07/2022 8:33 AM CDT Pt would like to speak with a nurse. She says her apt is too far away. [phone] * Kiera Augustin LPN - 11/06/2022 4:45 PM CDT Attempted to call pt to schedule appt. VM left to r/c to office. * Mar Joe - 11/02/2022 12:09 PM CDT Patient called today to make a hospital follow up appt. Please call her to discuss documented in this encounter Plan of Treatment Upcoming Encounters Date Type Department Care Team (Late st Contact Info) Description 03/14/2024 11:45 AM CONTRACTOR GENERAL ENGINEERING Office Visit [facility] [phone] Marvin Mckeon MD Three [facility] [address] [place], [place] [phone] 03/20/2024 11:30 AM CONTRACTOR GENERAL ENGINEERING Office Visit [facility] Family Medicine - [place] 100 [place] [phone] Abiodun Segura II, MD [address] [place], [place] [phone] documented as of this encounter Goals Goal Patient Goal Type Associated Problems Recent Progress Patient-Stated? Author Family - family caregiver with be involved in care transitions and discharge planning Lifestyle No Natty Cheek RN documented as of this encounter Visit Diagnoses Not on filedocumented in this encounter Additional Health Concerns Assessment Noted Time PHQ-9 Depression Total Score: 0 03/08/19 22 9:30 AM CONTRACTOR GENERAL ENGINEERING documented as of this encounter Care Teams Manager Database Relationship Specialty Start Date End Date Abiodun Segura II, MD [address] [place] [address] PCP - General FAMILY PRACTICE 03/09/21 [place] [address] [place] [address] PODIATRY/SURGERY 05/05/22 documented as of this encounter
--- OUTSIDE RECORDS SUMMARY | 2024-03-02 22:23 | XMS_ITS | Encounter Summary ---
Author Organization [facility] Address [address] [place] [address]. [place] [address] [place] [address] Care Team Providers Care Agronomy Advisor Name Role Phone Colton SILVEIRA MD, Abiodun Rushing Primary Care Provider Victoriano Langston MD Unavailable [phone] Encounter Details Date Type Department Care Team (Latest Contact Info) Description 12/13/2022 Travel Social History Tobacco Use Types Packs/Day [...] Recorded Patient Health Questionnaire-2 Score 0 12/13/2022 [facility] - Occupational [...] slept in a correction (including now)? No 11/10/2022 Comments No Sex [...] st Contact Info) Description 03/14/2024 11:45 AM SQL SSIS DEVELOPER Office Visit [facility] [phone] Marvin Mckeon MD [facility] [address] [place] [address] 03/20/2024 11:30 AM SQL SSIS DEVELOPER Office Visit [facility] - [place] [address] [place] [phone] Abiodun Segura II, MD [address] [place] [id number] documented as of this encounter Goals Goal Patient Goal Type Associated Problems Recent Progress Patient-Stated? Author Family - family caregiver with be involved in care transitions and discharge planning Lifestyle No Natty Cheek, RN documented as of this encounter Visit Diagnoses Not on filedocumented in this encounter Additional Health Concerns Assessment Noted Time PHQ-9 Depression Total Score: 0 03/08/19 22 9:30 AM SQL SSIS DEVELOPER documented as of this encounter Care Teams Agronomy Advisor Relationship Specialty Start Date End Date Abiodun Segura II, MD [address] [place] [address] PCP - General FAMILY PRACTICE 03/09/21 [place] [address] [place] [address] PODIATRY/SURGERY 05/05/22 documented as of this encounter
--- OUTSIDE RECORDS SUMMARY | 2024-03-02 22:23 | XMS_ITS | Encounter Summary ---
Author Organization [facility] Address [address] [place] [address]. [place], [place] [id number] [place] [id number] Care Team Providers Care Weighter Name Role Phone Colton SILVEIRA MD, Yasmin Rushing Primary Care Provider Victoriano Langston MD Unavailable [phone] Reason for Referral * Imaging (Urgent) - Closed Specialty Diagnoses / Procedures Referred By Contac t Referred To Contact RADIOLOGY Procedures NM RENAL SCAN W Micah Harmon PA 3 [facility] [address] [place] [address] Phone: tel: fax: Referral ID Status Reason Start Date Expiration Date Visits Re quested Visits Authorized [id number] Closed 11/10/2022 11/11/2023 1 1 * Imaging (Emergency) - Closed Specialty Diagnoses / Procedures Referred By Contac t Referred To Contact RADIOLOGY Procedures CT ABD+PEL W IV CON ONLY Erica Keating MD [address] [place] [address] Phone: tel: fax: Referral ID Status Reason Start Date Expiration Date Visits Re quested Visits Authorized [id number] Closed 11/09/2022 11/10/2023 1 1 Reason for Visit * Reason Comments Vomiting * Auth/Cert (Routine) Specialty Diagnoses / Procedures Referred By Lyla chaney Referred To Contact Diagnoses Vomiting Abdominal pain Intractable vomiting Intractable vomiting Procedures NONE Janelle Pimentel, DO 1 [place] [address] Phone: tel: fax: Referral ID Status Reason Start Date Expiration Date Visits Re quested Visits Authorized [id number] 1 1 Encounter Details Date Type Department Care Team (Late st Contact Info) Description 11/09/2022 9:12 PM CDT - 11/11/2022 4:47 PM CDT Emergency [facility] Med/Surg 5th [address] [place], [place] [id number] Erica Keating MD [address] [place] [id number] Janelle Pimentel, DO 1 [place], [place] [id number] Soraya Sanz MD [place], [place] [id number] [phone] (Work) Vomiting Discharge Disposition: Home or Self Care [...] Recorded Patient Health Questionnaire-2 Score 0 05/05/2022 [facility] - [...] Sign Reading Time Taken Comments Blood Pressure 132/77 11/11/2022 4:22 PM CDT Pulse 87 11/11/2022 4:22 PM CDT Temperature 36.9 ??C (98.4 ??F) 11/11/2022 4:22 PM CD T Respiratory Rate 16 11/11/2022 4:22 PM CDT Oxygen Saturation 100% 11/11/2022 4:22 PM CDT Inhaled Oxygen Concentration - - Weight 88.7 kg (195 lb 8.8 oz) 11/11/2022 5:28 A M CDT Height 167.6 cm (5' 6 ) 11/09/2022 8:25 PM CDT Body Mass Index 31.56 11/09/2022 8:25 PM CDT documented in this [...] AM EMILEET Sunshine Talamantes RN Active * Are you [...] or making decisions? No 11/10/2022 3:37 AM Sunshine Segundo RN A ctive * Because of a physical, mental, or emotional condition, do you have serious difficulty concentrating, remembering, or making decisions? Answer Entry Date Author Status No 11/10/2022 3:37 AM Sunshine Segundo RN Active documented in this encounter Discharge Summaries * Soraya Sanz MD - 11/11/2022 4:00 PM CDT Images from the original note were not included. Hospitalist Discharge Summary Patient ID: Lena Youngblood. female. 1970. Admit date: 11/09/2022 9:12 PM Discharge date and time: 11/11/22 Admitting Physician: Janelle Pimentel DO Attending Physician: Soraya Sanz MD Primary Care Physician: YASMIN SEGURA MD Discharge Physician: SORAYA SANZ MD Hospital Diagnosis: Intractable vomiting Procedures: None Discharged Condition: Stable Code Status: Full Code Indication for Admission: Chief Complaint Patient presents with Vomiting History of Present Illness: Lena Youngblood is a 52-year-old female with past medical history of has a past medical history of Arthritis, Charcot foot due to diabetes mellitus , Constipation, COVID-19, Diabetes mellitus , Diabetic neuropathy, Gastric ulcer, High cholesterol, Hypertension, Kidney stone, Renal disorder, UTI (urinary tract infection), Vision decreased, and history of 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 She had been evaluated in the ER on multiple occasions as well as hospitalized in the past several weeks prior to admission. Patient had recent EGD reportedly revealing PUD (however unfortunately this was completed during downtime and unable to access at this time). She has been referred to Dr. Saldivar for further evaluation. Patient stated her pain was greatest in the epigastric region and intermittently diffusely to her right lower quadrant and flank. She reported diaphoresis and chills; no confirmed febrile events. Patient stated she had been unable to tolerate p.o. intake for the past 2 to 3 days prior to admission. She had nausea with vomiting; emesis consists of what ever she attempts to eat or drink. Denied melena, hemtochezia and hematemesis. Patient stated she has had chronic hydronephrosis to her right kidney for many years. She has history of right UPJ stenosis. Pt states she had surgery age 17; and stent placement. She reported episodes of severe hydronephrosis requiring temporary right side nephrostomy tube in year 2016 or 2017. She had not had any further evaluation since that time. Pt stated she was referred to Urology and was scheduled for appointment on the day prior to admission; however she was sent to ER instead secondary to uncontrolled nausea/vomiting. Readmission/Mortality Score at discharge: Low 0-28, Medium 29-58, High >59 LACE+ Score *This score is based on incomplete data Readmission Score: 78* Male Patient: - Urgent Admission: 15 Discharge Institution: - Length of Stay: 3 Alternative Level of Care Status: 0 ED Visits in Previous 6 Months: 6 Elective Admission in Previous Year: 6 Comorbidity Score (by age & number of urgent admissions): 48 - This score is not calculated because of inadequate data Hospital Course: Abdominal pain Suspect secondary to recent dx of PUD Medical Floor CT Abd/Pelvis as above Clear liquid diet - advance as tolerated. Continue PPI, increased Carafate to TID Consult GI - follows with Dr. Saldivar. Tums prn. Currently tolerating po diet. Ok to dc home. Chronic right hydronephrosis CT Abd/Pelvis with stable enlargement of the right kidney with marked dilatation of the renal calyces and mild dilatation of the right renal pelvis. 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 consulted NM renal scan done -results pending. F/U with for results. Diabetes Mellitus Hemoglobin A1c 09/20/22 8.8% Hold Trulicity Continue Lantus at decreased dose of 15 units given minimal po intake ACHS SSI. Hypoglycemic protocol Resume home meds on dc. Hypertension BP stable elevated upon arrival to ED Continue Norvasc, Lisinopril. BPs overall better. Follow BPs on dc. Stable co morbidities contributing to high complexity of care Anxiety, Arthritis, Charcot foot due to diabetes mellitus , Constipation, Hx of COVID-19, Diabetic neuropathy, Gastric ulcer, High cholesterol, Kidney stone, Renal disorder, UTI (urinary tract infection), and Vision decreased. Findings that require further workup: F/U for results to NM renal scan. Consults: GI and urology Significant Diagnostic Studies: Recent Results (from the past 24 hour(s)) POCT glucose Collection Time: 11/10/22 4:51 PM Result Value Ref Range GLUCOSE POC 169 (H) 70 - 99 mg/dL POCT glucose Collection Time: 11/10/22 8:31 PM Result Value Ref Range GLUCOSE POC 188 (H) 70 - 99 mg/dL POCT glucose Collection Time: 11/11/22 8:04 AM Result Value Ref Range GLUCOSE POC 138 (H) 70 - 99 mg/dL POCT glucose Collection Time: 11/11/22 11:23 AM Result Value Ref Range GLUCOSE POC 144 (H) 70 - 99 mg/dL Radiology Reports : CT abd/pel w IV con (11/09/22): No etiology for acute abdominal pain is demonstrated. No interval change in severe right hydronephrosis with delayed contrast excretion in the right kidney. Bilateral renal calculi. CXR (11/09/22): No active disease. Results for orders placed or performed during the hospital encounter of 11/09/22 ECG [address] 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C) 97.9 ??F (36.6 ??C) TempSrc: Oral Oral Oral Oral SpO2: 100% 100% 98% 100% Weight: 88.7 kg (195 lb 8.8 oz) Height: Physical Exam Vitals reviewed. Cardiovascular: Rate and Rhythm: Normal rate and regular rhythm. Heart sounds: Normal heart sounds. No murmur heard. Pulmonary: Effort: Pulmonary effort is normal. Breath sounds: Normal breath sounds. Abdominal: General: There is no distension. Palpations: Abdomen is soft. Tenderness: There is no abdominal tenderness. Musculoskeletal: General: No swelling. Skin: Findings: No rash. Neurological: Mental Status: She is alert. Discharge Medications: Medication List START taking these medications Morning Afternoon Evening Bedtime As Needed calcium carbonate 500 MG chewable tablet Commonly known as: TUMS Chew 1 tablet (500 mg total) by mouth 2 (two) times daily as needed. Last time this was given: 500 mg on November 11, 2022 1:39 PM Signed by: Dr. Soraya Sanz MD ondansetron 4 MG disintegrating tablet Commonly known as: ZOFRAN-ODT Take 1 tablet (4 mg total) by mouth every 6 (six) hours as needed for Nausea. Last time this was given: Ask your nurse or doctor Signed by: Dr. Soraya Sanz MD CHANGE how you take these medications Morning Afternoon Evening Bedtime As Needed sucralfate 1 G tablet Commonly known as: CARAFATE Take 1 tablet (1 g total) by mouth 3 (three) times daily before meals. Last time this was given: 1 g on November 11, 2022 1:39 PM Signed by: Dr. Soraya Sanz MD What changed: when to take this CONTINUE taking these medications Morning Afternoon Evening Bedtime As Needed amLODIPine 10 MG tablet Commonly known as: NORVASC Take 1 tablet by mouth once daily Last time this was given: 10 mg on November 10, 2022 10:23 AM Signed by: Dr. Yasmin Segura MD dulaglutide 4.5 MG/0.5ML injection (PEN) Commonly known as: TRULICITY Inject 4.5 mg into the skin once a week. Indications: Diabetes You were taking this medication differently than prescribed. A new prescription has been created tomatch what you have been doing. Signed by: Dr. Soraya Sanz MD HumaLOG Mix 75/25 (75-25) 100 UNIT/ML Susp INJECT 60 UNITS SUBCUTANEOUSLY ONCE DAILY IN THE MORNING THEN 55 ONCE DAILY IN THE EVENING Signed by: Dr. Yasmin Segura MD Generic drug: insulin lispro protamine-insulin lispro lisinopril 20 MG tablet Commonly known as: PRINIVIL Take 1 tablet (20 mg total) by mouth every evening. Indications: hypertension Last time this was given: 20 mg on November 10, 2022 8:41 PM Signed by: Sofy Acevedo MD oxybutynin 5 MG tablet Commonly known as: DITROPAN Take 1 tablet (5 mg total) by mouth 3 (three) times daily. oxyCODONE-acetaminophen 5-325 MG tablet Commonly known as: Percocet Take 1-2 tablets by mouth every 4 (four) hours as needed for Pain. Indications: Acute Pain < 7 Day Supply Last time this was given: 2 tablets on November 10, 2022 8:42 PM Signed by: Dr. Kvng Lewis MD pantoprazole EC 40 MG tablet Commonly known as: PROTONIX Take 1 tablet (40 mg total) by mouth 2 (two) times daily. Last time this was given: 40 mg on November 10, 2022 8:41 PM simvastatin 40 MG tablet Commonly known as: ZOCOR TAKE 1 TABLET BY MOUTH AT BEDTIME Signed by: Dr. Yasmin Segura MD venlafaxine XR 37.5 MG 24 hr capsule Commonly known as: EFFEXOR-XR Take 1 capsule (37.5 mg total) by mouth daily. Last time this was given: 37.5 mg on November 10, 2022 8:42 PM Signed by: Dr. Yasmin Segura MD Disposition: Home with self care Time Spent on Discharge: Greater than 30 minutes Signed: SORAYA SANZ MD documented in this encounter Medications at Time [...] Indications: Diabetes 1 pen. 3 03/05/19 24 HUMALOG MIX 75/25 (75-25) 100 UNIT/ML SuspensionIndicatio ns:Type 2 diabetes mellitus with retinopathy, with long-term current use of insulin, macular edema presence unspecified, unspecified laterality, unspecified retinopathy severity (CMS/HCC HHS/HCC) INJECT 60 UNITS SUBCUTANEOUSLY ONCE DAILY IN THE MORNING THEN 55 ONCE DAILY IN THE EVENING 40 mL 2 3 01/31/20 23 lisinopril (PRINIVIL) 20 MG tabletIndications:h ypertension Take [...] as of this encounter Progress Notes * Ruma Franco RN - 11/11/2022 3:58 PM CDTSummary: discharge Problem: Nausea/Vomiting Goal: Absence of nausea/vomiting 11/11/2022 1557 by Ruma Franco RN Outcome: Progressing 11/11/2022 1335 by Ruma Franco RN Outcome: Progressing Goal: Electrolytes within specified parameters 11/11/2022 1557 by Ruma Franco RN Outcome: Progressing 11/11/2022 1335 by Ruma Franco RN Outcome: Progressing Problem: Pain Goal: Patient's pain/discomfort is manageable Description: Assess and monitor patient's pain using appropriate pain scale. Collaborate with interdisciplinary team and initiate plan and interventions as ordered. Re-assess patient's pain level 30 - 60 minutes after pain management intervention. 11/11/2022 1557 by Ruma Franco RN Outcome: Progressing 11/11/2022 1335 by Ruma Franco RN Outcome: Progressing Problem: Safety Goal: Patient will be injury free during hospitalization Description: Assess and monitor vitals signs, neurological status including level of consciousness and orientation. Assess patient's risk for falls and implement fall prevention plan of care and interventions per hospital policy. Ensure arm band on, uncluttered walking paths in room, adequate room lighting, call light and overbed table within reach, bed in low position, wheels locked, side rails up per policy, and non-skid footwear provided. 11/11/2022 1557 by Ruma Franco RN Outcome: Progressing 11/11/2022 1335 by Ruma Franco RN Outcome: Progressing Problem: Daily Care Goal: Daily care needs are met Description: Assess and monitor ability to perform self care and identify potential discharge needs. 11/11/2022 1557 by Ruma Franco RN Outcome: Progressing 11/11/2022 1335 by Ruma Franco RN Outcome: Progressing Problem: Psychosocial Needs Goal: Demonstrates ability to cope with hospitalization/illness Description: Assess and monitor patients ability to cope with his/her illness. 11/11/2022 1557 by Ruma Franco RN Outcome: Progressing 11/11/2022 1335 by Ruma Franco RN Outcome: Progressing Goal: Collaborate with patient/family/caregiver to identify patient specific goals for this hospitalization 11/11/2022 1557 by Ruma Franco RN Outcome: Progressing 11/11/2022 1335 by Ruma Franco RN Outcome: Progressing Problem: Discharge Barriers Goal: Patient's discharge needs are met Description: Collaborate with interdisciplinary team and initiate plans and interventions as needed. 11/11/2022 1557 by Ruma Franco RN Outcome: Progressing 11/11/2022 1335 by Ruma Franco RN Outcome: Progressing * Ruma Franco RN - 11/11/2022 1:35 PM CDTSummary: progress Problem: Nausea/Vomiting Goal: Absence of nausea/vomiting Outcome: Progressing Goal: Electrolytes within specified parameters Outcome: Progressing Problem: Pain Goal: Patient's pain/discomfort is manageable Description: Assess and monitor patient's pain using appropriate pain scale. Collaborate with interdisciplinary team and initiate plan and interventions as ordered. Re-assess patient's pain level 30 - 60 minutes after pain management intervention. Outcome: Progressing Problem: Safety Goal: Patient will be injury free during hospitalization Description: Assess and monitor vitals signs, neurological status including level of consciousness and orientation. Assess patient's risk for falls and implement fall prevention plan of care and interventions per hospital policy. Ensure arm band on, uncluttered walking paths in room, adequate room lighting, call light and overbed table within reach, bed in low position, wheels locked, side rails up per policy, and non-skid footwear provided. Outcome: Progressing Problem: Daily Care Goal: Daily care needs are met Description: Assess and monitor ability to perform self care and identify potential discharge needs. Outcome: Progressing Problem: Psychosocial Needs Goal: Demonstrates ability to cope with hospitalization/illness Description: Assess and monitor patients ability to cope with his/her illness. Outcome: Progressing Goal: Collaborate with patient/family/caregiver to identify patient specific goals for this hospitalization Outcome: Progressing Problem: Discharge Barriers Goal: Patient's discharge needs are met Description: Collaborate with interdisciplinary team and initiate plans and interventions as needed. Outcome: Progressing * Sunshine Talamantes RN - 11/10/2022 9:59 PM CDT Problem: Nausea/Vomiting Goal: Absence of nausea/vomiting Outcome: Progressing Goal: Electrolytes within specified parameters Outcome: Progressing Problem: Pain Goal: Patient's pain/discomfort is manageable Description: Assess and monitor patient's pain using appropriate pain scale. Collaborate with interdisciplinary team and initiate plan and interventions as ordered. Re-assess patient's pain level 30 - 60 minutes after pain management intervention. Outcome: Progressing Problem: Safety Goal: Patient will be injury free during hospitalization Description: Assess and monitor vitals signs, neurological status including level of consciousness and orientation. Assess patient's risk for falls and implement fall prevention plan of care and interventions per hospital policy. Ensure arm band on, uncluttered walking paths in room, adequate room lighting, call light and overbed table within reach, bed in low position, wheels locked, side rails up per policy, and non-skid footwear provided. Outcome: Progressing Problem: Daily Care Goal: Daily care needs are met Description: Assess and monitor ability to perform self care and identify potential discharge needs. Outcome: Progressing Problem: Psychosocial Needs Goal: Demonstrates ability to cope with hospitalization/illness Description: Assess and monitor patients ability to cope with his/her illness. Outcome: Progressing Goal: Collaborate with patient/family/caregiver to identify patient specific goals for this hospitalization Outcome: Progressing Problem: Discharge Barriers Goal: Patient's discharge needs are met Description: Collaborate with interdisciplinary team and initiate plans and interventions as needed. Outcome: Progressing * Aaron Jerez, CONSTANTINE - 11/10/2022 3:43 PM CDT CM Assessment Note SWCM completed review of chart. Patient recently discharged from [facility] within the last 30 days (discharge date unclear 03/23 Epic downtime) Support: patient's daughter Home: lives in private residence; [address], ranch style home with basement Ambulation: Reports independent prior to admission. DME products: walker, wheelchair Medical Devices: None ADLs: min assist from daughter Transport Home: family Skin/Bladder/Bowel: No deficits reported. A/O: x3 at baseline Communication: No deficits noted or reported. Home Health: None Occupation: Disabled [facility]: [facility] Financial Concerns: None PCP/Insurance Plan: Verified. PCP: Yasmin Segura II, MD. Insurance: [facility] Medicare Discharge needs: anticipate discharge home with no needs once stable. [facility] will continue to follow and assess for needs ongoing 11/10/22 4646 Referral Data Source of Information Chart review Patient Information Primary Caregiver Self Current living Situation Children Type of Residence Private residence Support System Immediate family Are you employed? Disabled Recent Hospitalization Recent Hospitalization within 30 days Yes (recently discharged from [facility] during Epic downtime) Baseline ADL's Functional Status Minimum assistance Active DME Walker;Wheelchair Behavior Oriented Communication Talks;Understands Bhut[place] DC screening tool This is a screening tool it does not take the place of a physical or occupational therapy evaluation. The screening is to screen the patient for what services and destination would be beneficial for patient for next level of care Chart Review Discharge to Prior Residence/Living Situation - No New Needs Identified - Will continue to Assess Yes Adequate Resources Available Adequate Resources Yes Anticipated DC Plan Living Arrangements Children Support Systems Children Type of Residence Private residence Assistance Needed No Patient expects to be discharged to: Home or Self care [place] Only - Criminal Background check [place] only - Is patient going to long term? No * Soraya Sanz MD - 11/10/2022 1:59 PM CDT Hospitalist Daily Progress Note Subjective This is a 52-year-old y/o female who presents with Intractable vomiting. States nausea still present, but no further vomiting today. Abd pain improving. Has been tolerating clear liquids. No CP or SOB. Objective Filed Vitals: 11/09/22 2300 11/10/22 0329 11/10/22 0814 11/10/22 1133 BP: (!) 164/81 (!) 146/75 (!) 154/86 130/85 Pulse: 98 88 88 81 Resp: 18 18 18 Temp: 98.3 ??F (36.8 ??C) 98.5 ??F (36.9 ??C) 97.7 ??F (36.5 ??C) TempSrc: Oral Oral SpO2: 100% 100% 100% 100% Weight: Height: Physical Exam: Physical Exam Vitals reviewed. Constitutional: Appearance: She is well-developed. Cardiovascular: Rate and Rhythm: Normal rate and regular rhythm. Heart sounds: No murmur heard. Pulmonary: Effort: Pulmonary effort is normal. No respiratory distress. Breath sounds: Normal breath sounds. No wheezing. Abdominal: General: There is no distension. Palpations: Abdomen is soft. Tenderness: There is no abdominal tenderness. Musculoskeletal: General: No swelling. Skin: Findings: No rash. Neurological: Mental Status: She is alert. Intake/Output 24H Total: Intake/Output Summary (Last 24 hours) at 11/10/2022 1359 Last data filed at 11/10/2022 0900 Gross per 24 hour Intake -- Output 600 ml Net -600 ml Medication amLODIPine 10 mg Oral Daily atorvastatin 20 mg Oral Daily insulin glargine 15 Units Subcutaneous Nightly at bedtime insulin lispro 0-16 Units Subcutaneous TID AC And insulin lispro 0-8 Units Subcutaneous Nightly at bedtime lisinopril 20 mg Oral QPM pantoprazole EC 40 mg Oral BID solifenacin succinate 10 mg Oral Daily sucralfate 1 g Oral TID AC venlafaxine XR 37.5 mg Oral Nightly at bedtime 0.9 % NaCl with KCl 20 mEq 75 mL/hr at 11/10/22 0129 PRN Meds: acetaminophen, calcium carbonate, melatonin, ondansetron, oxyCODONE- acetaminophen, oxyCODONE-acetaminophen, polyethylene glycol, prochlorperazine Labs: Recent Results (from the past 24 hour(s)) CBC W/DIFF AUTOMATED Collection Time: 11/09/22 9:39 PM Result Value Ref Range WBC 10.7 4.5 [...] 0.49 x10'3/uL COMPREHENSIVE METABOLIC PANEL Collection Time: 11/09/22 9:39 PM Result Value Ref Range GLUCOSE 209 (H) [...] ESTIMATE 58 (L) >90 ML/MIN/1.73 M2 LIPASE Collection Time: 11/09/22 9:39 PM Result Value Ref Range LIPASE 25 13 - 75 UNITS/L POCT glucose Collection Time: 11/10/22 1:20 AM Result Value Ref Range GLUCOSE POC 205 (H) 70 - 99 mg/dL BASIC METABOLIC PANEL Collection Time: 11/10/22 6:50 AM Result Value Ref Range GLUCOSE 111 (H) [...] ESTIMATE 78 (L) >90 ML/MIN/1.73 M2 MAGNESIUM Collection Time: 11/10/22 6:50 AM Result Value Ref Range MAGNESIUM 1.7 (L) 1.8 - 2.4 MG/DL URINALYSIS WI REFLEX TO CULTURE Collection Time: 11/10/22 8:02 AM Specimen: URINE, CLEAN CATCH Result Value Ref [...] 2 <6 /HPF SQUAMOUS EPITHELIALS RARE /HPF POCT glucose Collection Time: 11/10/22 8:18 AM Result Value Ref Range GLUCOSE POC 132 (H) 70 - 99 mg/dL POCT glucose Collection Time: 11/10/22 12:19 PM Result Value Ref Range GLUCOSE POC 131 (H) 70 - 99 mg/dL X-Ray CT abd/pel w IV con (11/09/22): No etiology for acute abdominal pain is demonstrated. No interval change in severe right hydronephrosis with delayed contrast excretion in the right kidney. Bilateral renal calculi. CXR (11/09/22): No active disease. 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 Continue PPI, increase Carafate to TID Consult GI - follows with Dr. Saldivar. Supportive Care: IV fluids, antiemetic Pain management-monitor for toxicity Chronic right hydronephrosis CT Abd/Pelvis with stable enlargement of the right kidney with marked dilatation of the renal calyces and mild dilatation of the right renal pelvis. 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 consulted NM renal scan ordered. Diabetes Mellitus Hemoglobin A1c 09/20/22 8.8% Hold Trulicity Continue Lantus at decreased dose of 15 units given minimal po intake ACHS blood glucose monitoring ACHS sliding scale insulin Hypoglycemic protocol Titrate insulin as needed. Hypertension BP stable elevated upon arrival to ED Continue Norvasc, Lisinopril. BPs overall better. Monitor/adjust meds as needed. Stable co morbidities contributing to high complexity of care Anxiety, Arthritis, Charcot foot due to diabetes mellitus , Constipation, Hx of COVID-19, Diabetic neuropathy, Gastric ulcer, High cholesterol, Kidney stone, Renal disorder, UTI (urinary tract infection), and Vision decreased. DVT prophylaxis Lovenox Code status FULL CODE per patient SORAYA SANZ MD 11/10/2022 1:59 PM * Sunshine Talamantes RN - 11/10/2022 3:29 AM CDT Problem: Nausea/Vomiting Goal: Absence of nausea/vomiting Outcome: Progressing Goal: Electrolytes within specified parameters Outcome: Progressing Problem: Pain Goal: Patient's pain/discomfort is manageable Description: Assess and monitor patient's pain using appropriate pain scale. Collaborate with interdisciplinary team and initiate plan and interventions as ordered. Re-assess patient's pain level 30 - 60 minutes after pain management intervention. Outcome: Progressing Problem: Safety Goal: Patient will be injury free during hospitalization Description: Assess and monitor vitals signs, neurological status including level of consciousness and orientation. Assess patient's risk for falls and implement fall prevention plan of care and interventions per hospital policy. Ensure arm band on, uncluttered walking paths in room, adequate room lighting, call light and overbed table within reach, bed in low position, wheels locked, side rails up per policy, and non-skid footwear provided. Outcome: Progressing Problem: Daily Care Goal: Daily care needs are met Description: Assess and monitor ability to perform self care and identify potential discharge needs. Outcome: Progressing Problem: Psychosocial Needs Goal: Demonstrates ability to cope with hospitalization/illness Description: Assess and monitor patients ability to cope with his/her illness. Outcome: Progressing Goal: Collaborate with patient/family/caregiver to identify patient specific goals for this hospitalization Outcome: Progressing Problem: Discharge Barriers Goal: Patient's discharge needs are met Description: Collaborate with interdisciplinary team and initiate plans and interventions as needed. Outcome: Progressing documented in this encounter H&P Notes * Wanda Langston APRN - 11/10/2022 12:23 AM CDT ATTENDING: WANDA LANGSTON APRN PRIMARY CARE PROVIDER: YASMIN SEGURA MD CC: abdominal pain HPI: Patient seen and evaluated by this provider. History obtained via chart review, discussion with patient, and review of outside records from Care Everywhere. 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 She has been evaluated in the ER on multiple occasions as well as hospitalized in the past several weeks. Patient had recent EGD reportedly revealing PUD (however unfortunately this was completed during downtime and unable to access at this time). She has been referred to Dr. Saldivar for further evaluation. Upon my assessment, the patient is alert and oriented x3. Patient states her pain is greatest in the epigastric region and often diffusely to her right lower quadrant and flank. She reports diaphoresis and chills; no confirmed febrile events. Patient states she has been unable to tolerate p.o. intake for the past 2 to 3 days. She has nauseawith vomiting; emesis consists of what ever she attempts to eat or drink. Denies melena, hemtochezia and hematemesis. Pt denies CP, diaphoresis, palpitations, sob, presyncopal or syncopal episiodes. No headaches, visual disturbances, dizziness, focal weakness, numbness/tingling, increased confusion and gait abnormality. Patient states she has had chronic hydronephrosis to her right kidney for many years. She has history of right UPJ stenosis. Pt states she had surgery age 17; and stent placement. She reports episodes of severe hydronephrosis requiring temporary right side nephrostomy tube in year 2015 or 2016. Shehas not had any further evaluation since that time. Pt states she was referred to Urology and was scheduled for appointment yesterday; however she was sent to ER instead secondary to uncontrolled nausea/vomiting. Patient states she has been urinating; however she notices she goes long periods of time without urge to urinate. She urinates large volume when she attempts to urinate; but states she does not completely empty her bladder. She reports recent urinary tract infection. She denies any current dysuria or gross hematuria; but states her urine has been darker in color. The pt will be admitted to Observation for further evaluation and treatment. Past Medical History: Diagnosis Date Arthritis Charcot [...] total) by mouth nightly at bedtime. 08/07/22 Yasmin Segura II, MD cephALEXin (KEFLEX) 500 MG capsule Take 1 capsule (500 mg total) by mouth. Default History Genericprovider dulaglutide (TRULICITY) 4.5 MG/0.5ML injection (PEN) Inject 4.5 mg into the skin once a week. Indications: Diabetes Patient taking differently: Inject 4.5 mg into the skin once a week. Indications: Diabetes 09/20/22 Yasmin Segura II, MD HUMALOG MIX 75/25 (75-25) 100 UNIT/ML Suspension INJECT 60 UNITS SUBCUTANEOUSLY ONCE DAILY IN THE MORNING THEN 55 ONCE DAILY IN THE EVENING Patient taking differently: Inject 55-65 Units into the skin see administration instructions. INJECT 65 UNITS SUBCUTANEOUSLY ONCE DAILY IN THE MORNING THEN 55 ONCE DAILY IN THE EVENING 08/17/22 Yasmin Segura II, MD HYDROcodone-acetaminophen (NORCO) 5-325 MG tablet Take 1 tablet by mouth every 8 (eight) hours as needed. FOR SEVERE PAIN 10/20/22 Default History Genericprovider lisinopril (PRINIVIL) 20 MG tablet Take 1 tablet (20 mg total) by mouth every evening. Indications:hypertension 09/09/22 09/09/23 Sofy Acevedo MD oxybutynin (DITROPAN) 5 MG tablet Take 1 tablet (5 mg total) by mouth 3 (three) times daily. 10/20/22Default History Genericprovider oxyCODONE-acetaminophen (PERCOCET) 5-325 MG tablet Take 1-2 tablets by mouth every 4 (four) hours as needed for Pain. Indications: Acute Pain < 7 Day Supply 11/08/22 Kvng Lweis MD pantoprazole EC (PROTONIX) 40 MG tablet Take 1 tablet (40 mg total) by mouth 2 (two) times daily. 10/20/22 Default History Genericprovider simvastatin (ZOCOR) 40 MG tablet TAKE 1 TABLET BY MOUTH AT BEDTIME Patient taking differently: Take 1 tablet (40 mg total) by mouth nightly at bedtime. 10/04/21 Yasmin Segura II, MD sucralfate (CARAFATE) 1 G tablet Take 1 tablet (1 g total) by mouth daily. 10/20/22 Default History Genericprovider venlafaxine XR (EFFEXOR-XR) 37.5 MG 24 hr capsule Take 1 capsule (37.5 mg total) by mouth daily. Patient taking differently: Take 1 capsule (37.5 mg total) by mouth nightly at bedtime. 09/20/22 Yasmin Segura II, MD I have reviewed current outpatient medications [...] output data in the 24 hours ending 11/10/22 0023 Patient Vitals for the past 24 hrs: BP Temp Temp src Pulse Resp SpO2 Height Weight 11/09/222027 -- 98.9 ??F (37.2 ??C) Axillary -- -- -- -- -- 11/09/222024 (!) 152/103 -- -- 100 20 99 % 5' 6 (1.676 m) 85.3 kg (188 lb) Intake/Output :[id number]@ Constitutional: Well developed, Well nourished, No acute distress, Non-toxic appearance. Obese HENT: Normocephalic, Atraumatic, Eyes: PERRL, EOMI, Respiratory: Bilaterally clear to auscultation with no rales, rhonchi, or wheezes. Good aeration. No accessory muscle use. Cardiovascular: S1, S2 present, regular rate and rhythm. No murmurs, rubs, or gallops. Bilateral radial and dorsalis pedis pulses +2. No pedal edema. GI: Bowel sounds normal, Soft, diffuse tenderness; greatest in the RLQ. Musculoskeletal: Intact distal pulses, No edema, No tenderness, Integument: Warm, Dry, No erythema, No rash. Neurologic: Alert & oriented x 3, , No focal deficits noted. Psychiatric: Affect normal, Judgment normal, Mood normal Labs: Recent Labs Lab 11/08/22 10511/09/222138 WBC 10.5 10.7 RBC 4.31 4.46 HGB 13.1 13.5 HCT 38.8 39.9 MCV 90.0 89.5 MCH 30.4 30.3 MCHC 33.8 33.8 PLT 295 325 RDW 13.7 13.1 MPV 11.5 11.3 PERNEU 76.0 72.1 PERLYM 18.7 21.0 PERMON 3.9 5.4 LYMC 1.96 2.25 MONOC 0.41 0.58 EOSC 0.06 0.06 BASOC 0.04 0.05 DTYPE AUTOMATED DIFFERENTIAL AUTOMATED DIFFERENTIAL Recent Labs Lab 11/08/22 1050 09/21/23 2139 NA 139 134* K 5.2* 3.8 CL 103 99* CO2 30.4 28.5 AGAP 5.6 6.5 BUN 16 18 CR 1.10* 1.14* BUNCREATININ 14.5 15.8 GLU 235* 209* CA 9.7 9.7 TP 9.3* 9.4* ALB 3.6 3.8 TBIL 0.7 0.5 ALKP 159* 149* AST 29 18 ALT 38 29 No results for input(s): CHOL, TRI, HDL, LDL, HGBA1C, TSH in the last 168 hours. No results for input(s): APTT, INR, PTT in the last 168 hours. No results for input(s): TROP, TROPIWB, CKMB, CPK in the last 168 hours. No results for input(s): LACTICACID, PROCT in the last 168 hours. No results for input(s): PH, PCO2, PO2, [id number], BICARBWB, BASEDEFICIT, BASEEXCESS in the fbgq118 hours. 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 The right ureter is nondilated and the findings could be due to a ureteropelvic junction obstruction. A 3 mm nonobstructing calculus is seen towards the upper pole. The left kidney shows a 3 mm nonobstructing calculus but is otherwise unremarkable. No upper abdominal or periaortic adenopathy. There is aortoiliac calcification. Scans the pelvis show no mass, lymphadenopathy or free fluid. Discectomy noted. The urinary bladder is unremarkable. The stomach and small bowel loops appear normal. No small bowel obstruction. Nofree air. The appendix is normal. Negative for colitis or diverticulitis. Bony structures are unremarkable. IMPRESSION: No etiology for acute abdominal pain is demonstrated. No interval change in severe right hydronephrosis with delayed contrast excretion in the right kidney. Bilateral renal calculi. Referred By: Interpreted By: Oj Boo MD, 11/09/2022 11:[address] ABD+PEL W IV CON ONLY Result Date: 11/08/2022 EXAMINATION: CT ABD+PEL W CON CLINICAL HISTORY: Pain COMPARISON: 10/11/2022, 09/24/2022 DATE/TIME: 11/08/2022 1:27 PM TECHNIQUE: Multiplanar CT images of the abdomen and pelvis were obtained. IV contrast: uneventful intravenous administration of 100 mL Isovue 370. Oral contrast: None. A dose lowering te chnique was used for this procedure, which may [...] By: Arley Gastelum MD, 11/08/2022 1:[address] ABD+PEL W IV CON ONLY Result Date: 10/11/2022 EXAMINATION: CT ABD+PEL W CON CLINICAL HISTORY: Abdominal pain, vomiting COMPARISON: 09/24/2022, and DATE/TIME: 10/11/2022 6:37 PM TECHNIQUE: Multiplanar CT images of the [...] Reasonably Achievable) / Image Gently techniques. FINDINGS: Liver is negative. Benignsplenic calcifications. Spleen is otherwise negative. Gallbladder is negative. Pancreas is negative. Adrenal glands are negative. Stable abnormal appearance of the right kidney with diffuse dilatation of the renal calyces and mild dilatation of the right renal pelvis. There is a least one medullarycalcification versus urinary tract stone in the right kidney. There is a small nonobstructive left renal stone is well. No left hydronephrosis. Abdominal aorta normal caliber with atherosclerotic ecta anny. Bladder is unremarkable. Calcified pelvic phleboliths. Hysterectomy. No pelvic mass. No free air or fluid. No bowel obstruction or bowel wall thickening. Prominent size of the appendix, unchanged from prior exams without surrounding inflammatory change. Stomach and duodenum are unremarkable. No acute osseous abnormality. IMPRESSION: 1. No acute abnormality identified. 2. Stable chronic abnormal appearance of the right kidney. 3. Other chronic or nonurgent findings as described above. Referred By: Interpreted By: Arley Gastelum MD, 10/11/2022 7:26 PM XR CHEST PORTABLE Result Date: 11/09/2022 Portable chest INDICATION: Abdominal pain. Comparison is October 11, 2022. TECHNIQUE: Single AP chest film. FINDINGS: Heart size and pulmonary vasculature are normal. The lungs are clear. No pleural fluid or pneumothorax. No bony abnormality. IMPRESSION: No active disease. Referred By: Interpreted By: Oj Kang MD, 11/09/2022 10:01 PM XR CHEST PORTABLE Result Date: 10/11/2022 CLINICAL HISTORY: Leukocytosis COMPARISON: 09/29/2022 TECHNIQUE: AP Portable View FINDINGS: Lungs are clear. No pneumothorax or pleural effusions evident. The cardiac silhouette, mediastinal contours,and pulmonary vessels appear within normal limits. No acute osseous abnormality. IMPRESSION: No acute findings. 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 and 40 mg furosemide i.v. HISTORY: Patient is a 46-year-old female with [...] no evidence of left-sided obstruction. Requested By: Bee Rico Dictated By: HANH FRANCOIS M.D. on Sep 15 2016 1:59P This document has been electronically signed by: ANA WADE MD on Sep 15 2016 2:22P ASSESSMENT AND PLAN: Abdominal pain Suspect secondary to recent dx of PUD Medical Floor CT Abd/Pelvis as above Clear liquid diet Pt scheduled with Dr Saldivar for evaluation- will consult Dr Saldivar during admission Supportive Care: IV fluids, antiemetic Pain management-monitor for toxicity Chronic right hydronephrosis CT Abd/Pelvis revealed: Stable enlargement of the right kidney with marked dilatation of the renal calyces and mild dilatation of the right renal pelvis. 1 tiny peripheral right renal stone versus vascular calcification, stable. Additional small nonobstructive left renal stone. 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 (s/p surgery age 17; stent placement; and temporary right side nephrostomy tube in 2016 or 2017) DIURETIC RENAL SCINTIGRAPHY-09/15/2016 As above; however no further evaluation since that time available Pt states she wa referred to Urology; however was unable to be evaluated because of uncontrolled n/v Will consult Urology for further evaluation/recs Strict I & O Bladder scan, post void residual Diabetes Mellitus Hold Trulicity Continue Lantus at decreased dose of 15 units and titrate as clinically indicated ACHS blood glucose monitoring ACHS sliding scale insulin Hypoglycemic protocol Hemoglobin A1c 09/20/22 8.8% Hypertension BP stable elevated upon arrival to ED Resume home BP meds once verified and titrate to maintain target goal Stable co morbidities contributing to high complexity of care Anxiety, Arthritis, Charcot foot due to diabetes mellitus , Constipation, Hx of COVID-19, Diabetic neuropathy, Gastric ulcer, High cholesterol, Kidney stone, Renal disorder, UTI (urinary tract infection), and Vision decreased. - DVT prophylaxis: SCDs - Diet/IVF: NPO - Code status: FULL CODE - Disposition: Admit Medical OBS Spent 16 minutes discussing plan of care as well as patient wishes and desires regarding medical care 11/10/2022. The patient/MPoA verbalizes understanding and wishes to remain a FULL CODE currently. Surrogate decision maker/MPoA is . The above plan of care was discussed with the patient in detail. An opportunity was provided for the patient/MPoA to ask questions regarding the hospital stay and plan of care. All questions were answered. The patient/MPoA understands and agrees. The patient was informed to ask the RN to contact meif any further questions or concerns. This note was dictated with the use of [employer] dictation software and was proofread to the best of my ability. If you have questions or find errors, please contact me via [employer]. Thank you. WANDA LANGSTON APRN 11/10/2022 12:23 AM Cosigned by Janelle Pimentel DO at 11/10/2022 6:56 AM CDT Associated attestation - Janelle Pimentel DO - 11/10/2022 6:56 AM CDT I have seen and examined the patient, and discussed the plan of care with Wanda Langston COSMETOLOGIST. I reviewed her note and agree with the findings and plan of care, as above. Janelle Pimentel DO 11/10/2022 6:55 AM documented in this encounter Consult Notes * Karlo Saldivar MD - 11/11/2022 3:57 PM CDT GASTROENTEROLOGY CONSULT 11/11/2022 3:58 PM Reason for Consult: Abdominal pain and burning Chief Complaint: Same History of Present Illness: Lena Youngblood is a 52-year-old complains of chronic abdominal pain and burning. She had an upper endoscopy with me on October 21 during our downtime computer outage. I was unable to find the paper records of exactly what I found or if I did any biopsies. I do remember she had some ulcers. She was placed on Protonix 40 mg daily and its not helping. She came back to the emergency room where she was also placed on sucralfate but that also was not helping. CT scan shows severe right hydronephrosis although there has been no interval change. Patient Active Problem List Diagnosis Hypercholesteremia Hypertension Type 2 diabetes mellitus (HHS/HCC) (CMS/HCC) Renal disorder Chronic bilateral low back pain without sciatica Callus of foot Vision decreased Renal stones Charcot foot due to diabetes mellitus (HHS/HCC) (CMS/HCC) Hot flashes due to menopause Chest pain Diabetic foot infection (HHS/HCC) (CMS/HCC) Osteomyelitis (HHS/HCC) (CMS/HCC) Soft tissue infection of foot Necrotic toes (HHS/HCC) (CMS/HCC) Acquired absence of other left toe(s) (HHS/HCC) (CMS/HCC) Atherosclerosis of [place] arteries of extremities with intermittent claudication, bilateral [...] Unstable Housing in the Last Year: No amLODIPine 10 mg Oral Daily atorvastatin 20 mg Oral Daily insulin glargine 15 Units Subcutaneous Nightly at bedtime insulin lispro 0-16 Units Subcutaneous TID AC And insulin lispro 0-8 Units Subcutaneous Nightly at bedtime lisinopril 20 mg Oral QPM pantoprazole EC 40 mg Oral BID solifenacin succinate 10 mg Oral Daily sucralfate 1 g Oral TID AC venlafaxine XR 37.5 mg Oral Nightly at bedtime Allergies Allergen Reactions Fish Oil Unknown Amoxicillin Rash Penicillins Rash PHYSICAL EXAM: Filed Vitals: 11/11/22 0100 11/11/22 0528 11/11/22 0756 11/11/22 1116 BP: 127/78 (!) 141/71 (!) 142/70 127/74 Pulse: 74 75 77 77 Resp: 16 16 16 16 Temp: 97.9 ??F (36.6 ??C) 97.6 ??F (36.4 ??C) 98.4 ??F (36.9 ??C) 97.9 ??F (36.6 ??C) TempSrc: Oral Oral Oral Oral SpO2: 100% 100% 98% 100% Weight: 88.7 kg (195 lb 8.8 oz) Height: Wt Readings from Last 3 Encounters: 11/11/22 88.7 kg (195 lb 8.8 oz) 11/08/22 85.8 kg (189 lb 2.5 oz) 10/15/22 88.4 kg (194 lb 14.2 oz) General: Pleasant, no distress HEENT: negative Neck: Lungs: clear Heart: RRR Abdomen: soft, non-tender, Rectal: Extremities: Skin: Neuro: AO x3 Labs: Recent Labs Lab 11/08/22 1050 11/09/222138 WBC 10.5 10.7 HGB 13.1 13.5 MCV 90.0 89.5 PLT 295 325 Recent Labs Lab 11/08/22 1050 11/09/22213811/10/22 0650 NA 139 134* 138 K 5.2* 3.8 3.7 CL 103 99* 107 CO2 30.4 28.5 25.6 BUN 16 18 14 Recent Labs Lab 11/08/22 1050 11/09/222138 AST 29 18 ALT 38 29 ALB 3.6 3.8 ? Imaging/Procedures: CT scan showing severe right hydronephrosis, unchanged. Previous Endoscopy: EGD was recently performed by me on October 21/2023 but I am able to locate the paper records. Assessment: Persistent abdominal pain and burning despite being on Protonix and sucralfate. I believe she had an ulcer on her recent EGD. However she also has severe right- sided hydronephrosis on CT and this mayalso be contributing to her abdominal discomfort. Plan: Urology consultation recommended. We are diligently looking for recent records and any biopsy results from EGD. Thank you for this consult. Please do not hesitate to contact us with further questions. KARLO SALDIVAR MD Voice recognition software utilized * CYNTHIA Alvares - 11/10/2022 1:13 PM CDT Images from the original note were not included. Urologic Surgery Inpatient Consult Note Encounter Date: 11/10/2022 Patient Name: Lena Youngblood Requesting Provider: Janelle Pimentel DO Reason for Consultation: Right hydronephrosis History of Present Illness: Ms. Youngblood is a 52-year-old female currently admitted for abdominal pain who is being seen in consultation for chronic right hydronephrosis. The patient has a complex urologic history with right pyeloplasty as a child and repeat [place] [address] Lucero. She has followed with Dr. Lucero in the past andmost recent renal scan is 2019 showed symmetric function with T1/2 right >10 minutes and left 7 m inutes. She was recently hospitalized and seen in consultation 10/19/22 for singular episode of urinary retention which was felt to be due to recent EGD. She had no ongoing retention and PVR was monitored without concerns. She had an outpatient appointment on 11/08/22 for follow up but upon presentation had severe epigastric pain, nausea, and vomiting and was directed to the ER. CT a/p was reviewedwhich demonstrates stable, unchanged right hydronephrosis with bilateral nonobstructing stones. Sheis voiding without difficulty. Denies dysuria or hematuria. Creatinine is consistent with baseline,0.89. WBC 10.7. Past Medical History: Diagnosis Date Arthritis Charcot foot due to diabetes mellitus (HHS/HCC) ([facility]) LEFT FOOT Constipation COVID-19 Diabetes mellitus (HHS/HCC) ([facility]/HCC) Diabetic neuropathy (HHS/HCC) (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 SURGERY HYSTERECTOMY 2004, 2019 hysterectomy, cervical surgery RETINAL DETACHMENT SURGERY Right Social History Socioeconomic History Marital status: Tobacco Use Smoking status: Never Smokeless tobacco: Never Vaping Use Vaping Use: Never used Substance and Sexual Activity Alcohol use: Not Currently Comment: few times per year Drug use: No Other Topics Concern Caffeine Concern No Exercise [...] (Medical): No Lack of Transportation (Non-Medical): No Stress: No Stress Concern Present Feeling of Stress : Only a little Intimate Partner Violence: Not At Risk Fear [...] Hypertension Sister Breast Cancer Other cousin 49 Medications: MEDICATIONS FOR CURRENT ENCOUNTER: SCHEDULED MEDICATIONS: amLODIPine 10 mg Oral Daily atorvastatin 20 mg Oral Daily insulin glargine 15 Units Subcutaneous Nightly at bedtime insulin lispro 0-16 Units Subcutaneous TID AC And insulin lispro 0-8 Units Subcutaneous Nightly at bedtime lisinopril 20 mg Oral QPM pantoprazole EC 40 mg Oral BID solifenacin succinate 10 mg Oral Daily sucralfate 1 g Oral TID AC venlafaxine XR 37.5 mg Oral Nightly at bedtime CONTINUOUS MEDICATIONS: 0.9 % NaCl with KCl 20 mEq 75 mL/hr at 11/10/22 0129 PRN MEDICATIONS: acetaminophen, calcium carbonate, melatonin, ondansetron, oxyCODONE- acetaminophen, oxyCODONE-acetaminophen, polyethylene glycol, prochlorperazine Allergies: Allergies Allergen Reactions Fish Oil Unknown Amoxicillin Rash Penicillins Rash Review of Systems: A complete 10-point review of systems was reviewed with the patient. Pertinent positives and negatives are in the History of Present Illness and Past Medical History. All other systems are unremarkable. Vitals Filed Vitals: 11/09/22 2300 11/10/22 0329 11/10/22 0814 11/10/22 1133 BP: (!) 164/81 (!) 146/75 (!) 154/86 130/85 Pulse: 98 88 88 81 Resp: 18 18 18 Temp: 98.3 ??F (36.8 ??C) 98.5 ??F (36.9 ??C) 97.7 ??F (36.5 ??C) TempSrc: Oral Oral SpO2: 100% 100% 100% 100% Weight: Height: Height: 5' 6 (167.6 cm) Weight: 85.3 kg (188 lb) Intake / Output: Intake/Output Summary (Last 24 hours) at 11/10/2022 1313 Last data filed at 11/10/2022 0900 Gross per 24 hour Intake -- Output 600 ml Net -600 ml Physical Examination: General: Patient is alert and oriented in no acute distress. Head: Normocephalic, atraumatic, sclerae anicteric Chest: Non-labored respirations, no accessory muscle use. Abdominal: Abdomen soft, nontender, nondistended Musculoskeletal: Normal station and posture Neurological: No focal neurologic deficit. Psychiatric: Appropriate affect and mood. Skin: Normal coloration, warm and dry Laboratory: Recent Labs Lab 11/08/22 1050 11/09/222138 WBC 10.5 10.7 HGB 13.1 13.5 HCT 38.8 39.9 Recent Labs Lab 11/08/22 1050 11/09/22213811/10/22 0650 CO2 30.4 28.5 25.6 ALT 38 29 -- AST 29 18 -- No results for input(s): APTT, INR, PTT in the last 168 hours. No results found for: PSA Invalid input(s): COLORU, CLARITYU, SPECGRAVU, PHURINE, PROTURQL, GLUCOSEUR, KETONESU, BILIRUBINU, BLOODUR, UROBILINOGUR, NITRITEU, LEUKESTUR Microbiology: Microbiology Results (last 14 days) No results found for the last 336 hours. Microbiology Results (last 14 days) No results found for the last 336 hours. Imaging: Radiology Results (Last 30 days) 11/09/[address] ABD+PEL W IV CON ONLY Final result Impression: IMPRESSION: No etiology for acute abdominal pain is demonstrated. No interval change in severe right hydronephrosis with delayed contrast excretion in the right kidney. Bilateral renal calculi. Referred By: Interpreted By: Oj Kang MD, 11/09/2022 11:43 PM 11/09/22 2159 XR CHEST PORTABLE Final result Impression: IMPRESSION: No active disease. Referred By: Interpreted By: Oj Kang MD, 11/09/2022 10:01 PM 11/08/[address] ABD+PEL W IV CON ONLY Final result Impression: IMPRESSION: 1. No definite acute abnormality identified. 2. Unchanged appearance of the right kidney with marked calyceal dilatation. 3. Nonobstructive bilateral nephrolithiasis. 4. Hepatic steatosis. 5. Other chronic or nonurgent findings as described above. Referred By: Interpreted By: Arley Gastelum MD, 11/08/2022 1:39 PM 10/11/22 2215 XR CHEST PORTABLE Final result Impression: IMPRESSION: No acute findings. Referred By: Interpreted By: John Campos, 10/11/2022 10:19 PM 10/11/[address] ABD+PEL W IV CON ONLY Final result Impression: IMPRESSION: 1. No acute abnormality identified. 2. Stable chronic abnormal appearance of the right kidney. 3. Other chronic or nonurgent findings as described above. Referred By: Interpreted By: Arley Gastelum MD, 10/11/2022 7:26 PM I have personally reviewed available radiographic images, and if available, the radiology report(s). I have discussed the results of the clinical lab tests and radiographic images with the patient. Assessment: 52 year old female with chronic, stable right hydronephrosis, bilateral nonobstructing nephrolithiasis Recommendations: Will proceed with NM lasix renal scan during admission. Reschedule outpatient follow up for continued monitoring -------- Micah Aggarwal PA-C [facility] [address] [place] [address] Cosigned by Marciano Saunders MD at 11/10/2022 4:55 PM CDT documented in this encounter ED Notes * Adenike Vaughan RN - 11/09/2022 9:46 PM CDT Bed: 04A Expected date: Expected time: Means of arrival: Comments: TG2 * Erica Baer MD - 11/09/2022 9:28 PM CDT Chief Complaint Chief Complaint Patient presents with Vomiting History of Present Illness Patient is a 52 yo F w/ pmh of DM, gastric ulcer, HTN presenting w/ epigastric pain. Has been constant to 2-3 days, burning. Was admitted to the hospital for this a few weeks ago, had an EGD w/ ulcerand reportedly has gallstones. Is supposed to have a repeat EGD but she is not sure why. Pain is 10/10 and constant. No relieving factors, worse with any ingestion of food or drink. Associated with vomiting, no hematesis. No fevers, chills, diarrhea, blood in stools, dysuria, hematuria. No other complaints. Medical History ALLERGIES: Review of patient's allergies indicates: Allergen Reactions Fish Oil Unknown Amoxicillin Rash Penicillins Rash MEDICATIONS: Prior to Admission medications Medication Sig Start Date End Date Taking? Authorizing Provider amLODIPine (NORVASC) 10 MG tablet Take 1 tablet by mouth once daily Patient taking differently: Take 1 tablet (10 mg total) by mouth nightly at bedtime. 08/07/22 Yasmin Segura II, MD cephALEXin (KEFLEX) 500 MG capsule Take 1 capsule (500 mg total) by mouth. Default History Genericprovider dulaglutide (TRULICITY) 4.5 MG/0.5ML injection (PEN) Inject 4.5 mg into the skin once a week. Indications: Diabetes Patient taking differently: Inject 4.5 mg into the skin once a week. Indications: Diabetes 09/20/22 Yasmin Segura II, MD HUMALOG MIX 75/25 (75-25) 100 UNIT/ML Suspension INJECT 60 UNITS SUBCUTANEOUSLY ONCE DAILY IN THE MORNING THEN 55 ONCE DAILY IN THE EVENING Patient taking differently: Inject 55-65 Units into the skin see administration instructions. INJECT 65 UNITS SUBCUTANEOUSLY ONCE DAILY IN THE MORNING THEN 55 ONCE DAILY IN THE EVENING 08/17/22 Yasmin Segura II, MD HYDROcodone-acetaminophen (NORCO) 5-325 MG tablet Take 1 tablet by mouth every 8 (eight) hours as needed. FOR SEVERE PAIN 10/20/22 Default History Genericprovider lisinopril (PRINIVIL) 20 MG tablet Take 1 tablet (20 mg total) by mouth every evening. Indications:hypertension 09/09/22 09/09/23 Sofy Acevedo MD oxybutynin (DITROPAN) 5 MG tablet Take 1 tablet (5 mg total) by mouth 3 (three) times daily. 10/20/22Default History Genericprovider oxyCODONE-acetaminophen (PERCOCET) 5-325 MG tablet Take 1-2 tablets by mouth every 4 (four) hours as needed for Pain. Indications: Acute Pain < 7 Day Supply 11/08/22 Kvng Lewis MD pantoprazole EC (PROTONIX) 40 MG tablet Take 1 tablet (40 mg total) by mouth 2 (two) times daily. 10/20/22 Default History Genericprovider simvastatin (ZOCOR) 40 MG tablet TAKE 1 TABLET BY MOUTH AT BEDTIME Patient taking differently: Take 1 tablet (40 mg total) by mouth nightly at bedtime. 10/04/21 Yasmin Segura II, MD sucralfate (CARAFATE) 1 G tablet Take 1 tablet (1 g total) by mouth daily. 10/20/22 Default History Genericprovider venlafaxine XR (EFFEXOR-XR) 37.5 MG 24 hr capsule Take 1 capsule (37.5 mg total) by mouth daily. Patient taking differently: Take 1 capsule (37.5 mg total) by mouth nightly at bedtime. 09/20/22 Yasmin Segura II, MD PAST MEDICAL HISTORY: [...] Systems Review of Systems Constitutional: Negative for chills and fever. HENT: Negative for congestion and rhinorrhea. Respiratory: Negative for cough and shortness of breath. Cardiovascular: Negative for chest pain. Gastrointestinal: Positive for abdominal pain, nausea and vomiting. Genitourinary: Negative for decreased urine volume and dysuria. Neurological: Negative for dizziness and light-headedness. Physical Exam Filed Vitals: 11/09/22202411/09/222027 BP: (!) 152/103 Pulse: 100 Resp: 20 Temp: 98.9 ??F (37.2 ??C) TempSrc: Axillary SpO2: 99% Weight: 85.3 kg (188 lb) Height: 5' 6 (1.676 m) Physical Exam Vitals and nursing note reviewed. Constitutional: General: She is in acute distress. Appearance: Normal appearance. HENT: Head: Normocephalic and atraumatic. Mouth/Throat: Mouth: Mucous membranes are moist. Cardiovascular: Rate and Rhythm: Regular rhythm. Tachycardia present. Pulmonary: Effort: Pulmonary effort is normal. No respiratory distress. Breath sounds: Normal breath sounds. Abdominal: General: Abdomen is flat. There is no distension. Palpations: Abdomen is soft. Tenderness: There is abdominal tenderness. There is no guarding or rebound. Comments: Tender to epigastric palpation, no rebound/guarding Musculoskeletal: General: Normal range of motion. Skin: General: Skin is warm and dry. Neurological: General: No focal deficit present. Mental Status: She is alert. 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1970 Requested By: ERICA BAER Order Number: [id number] Reading MD: Measurements Intervals [place] Rate: 101 P: 7 OH: 169 QRS: 28 QRSD: 88 T: 56 QT: 321 QTc: 416 Interpretive Statements SINUS TACHYCARDIA NONSPECIFIC T-WAVE ABNORMALITY ABNORMAL RHYTHM ECG Compared to ECG 11/08/2022 10:31:14 Sinus rhythm no longer present T-wave abnormality still present LABORATORY STUDIES: Results for orders placed or performed during the hospital encounter of 11/09/22 CBC W/DIFF AUTOMATED Result Value Ref Range [...] Range LIPASE 25 13 - 75 UNITS/L IMAGING STUDIES CT ABD+PEL W IV CON ONLY Final Result by User, [id number] (11/09 2348) CT abdomen and pelvis with contrast INDICATION: [...] hydronephrosis and delayed contrast excretion. The right ureter is nondilated and the findings could be due to a ureteropelvic junction obstruction. A 3 mm nonobstructing calculus is seen towards the upper pole. The left kidney shows a 3 mm nonobstructing calculus but is otherwise unremarkable. No upper abdominal or periaortic adenopathy. There is aortoiliac calcification. Scans the pelvis show no mass, lymphadenopathy or free fluid. Discectomy noted. The urinary bladder is unremarkable. The stomach and small bowel loops appear normal. No small bowel obstruction. No free air. The appendix is normal. Negative for colitis or diverticulitis. Bony structures are unremarkable. IMPRESSION: No etiology for acute abdominal pain is demonstrated. No interval change in severe right hydronephrosis with delayed contrast excretion in the right kidney. Bilateral renal calculi. Referred By: Interpreted By: Oj Kang MD, 11/09/2022 11:43 PM XR CHEST PORTABLE Final Result by User, [id number] (11/09 2202) Portable chest INDICATION: Abdominal pain. Comparison is October 11, 2022. TECHNIQUE: Single AP chest film. FINDINGS: Heart size and pulmonary vasculature are normal. The lungs are clear. No pleural fluid or pneumothorax. No bony abnormality. IMPRESSION: No active disease. Referred By: Interpreted By: Oj Kang MD, 11/09/2022 10:01 PM ED Course / Medical Decision Making Medical Decision Making Patient is a 52 yo F presenting w/ epigastric pain. Tachycardic on my evaluation, otherwise hemodynamically stable, crying and vomiting receiving reglan and protonix durnig my evaluation. Was seen 1 day ago but pain is 10/10, will obtain scanning to r/o perforation. Will obtain EKG and troponin to r/o acs or arrhythmia, pending cbc looking for infection, anemia, cmp for renal/hepatic impairment, electrolyte derangement, cxr to r/o pneumonia. Will treat with ivfs and pain medicine. Patient agrees w/ plan. Problems Addressed: Abdominal pain: acute illness or injury Amount and/or Complexity of Data Reviewed Labs: ordered. Radiology: ordered. ECG/medicine tests: ordered and independent interpretation performed. Risk Decision regarding hospitalization. ED Course as of 11/10/2216 Viky Nov 09, [id number] WBC: 10.7 [JAVON] 2199 HGB: 13.5 [JAVON] 2199 PLT: 325 [JAVON] 2204 Negative cxr [JAVON] 2223 CREATININE S/P/B(!): 1.14 [JAVON] 2223 SODIUM S/P/B(!): 134 [JAVON] 2223 CHLORIDE S/P/B(!): 99 [JAVON] 2223 ALKALINE PHOSPHATASE S/P/B(!): 149 [JAVON] 225 EKG done at 2254 no stemi; rhythm strip at 2254 rate 101 bpm, sinus, no ectopy [JAVON] 2349 No acute finding on cxr [JAVON] SunNov 10, 2022 0003 Patient unable to tolerate po despite treatment, multiple er visits w/o improvement, will admit to hospitalist [JAVON] ED Course User Index [JAVON] Erica Baer MD Clinical Impression Abdominal pain (Primary) Vomiting Patient agreeable to admission for her pain/nausea for observation Disposition: Admit Erica Baer MD 11/10/2216 * CYNTHIA Hebert - 11/09/2022 8:25 PM CDT [place], [place] EMERGENCY DEPARTMENT ENCOUNTER Medical Screening Examination 11/09/22 8:25 PM Chief Complaint : No chief complaint on file. HPI : Lena Youngblood is a 52-year-old female who presents with continued abd pain after being dxwith peptic ulcer yesterday. Reports continuing to have pain and vomiting Vital Signs: There were no vitals filed for this visit. Physical exam: A limited physical exam was completed due facility construction in triage area and to facilitate/expedite patient care. Crying, RUQ and epigastric ttp Plan: Necessary labs/imaging/medications ordered to initiate pt care. CYNTHIA Hebert 11/09/222025 Cosigned by Kassandra Ballard MD at 11/10/2022 2:27 PM CDT * Alfreda Echevarria RN - 11/09/2022 8:24 PM CDT Patient to ED c/o x3 episodes of vomiting. States she has only ate jello. Seen last night and dx with ulcer. Taking sulcrafate and oxy as prescribed. 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 Author Family - family caregiver with be involved in care transitions and discharge planning Lifestyle No Natty Cheek, RN documented as of this encounter Procedures Procedure Name Priority Date/Time Associated Diagnosis Comments POCT GLUCOSE - CORREA DOCKED DEVICE Routine 11/11/2022 11:23 AM CDT NM RENAL SCAN W LASIX Today 11/11/2022 8:07 AM CDT POCT GLUCOSE - CORREA DOCKED DEVICE Routine 11/11/2022 8:04 AM CDT POCT GLUCOSE - CORREA DOCKED DEVICE Routine 11/10/2022 8:31 PM CDT POCT GLUCOSE - CORREA DOCKED DEVICE Routine 11/10/2022 4:51 PM CDT POCT GLUCOSE - CORREA DOCKED DEVICE Routine 11/10/2022 3:59 PM CDT POCT GLUCOSE - CORREA DOCKED DEVICE Routine 11/10/2022 12:19 PM CDT POCT GLUCOSE - CORREA DOCKED DEVICE Routine 11/10/2022 8:18 AM CDT URINALYSIS WI REFLEX TO CULTURE STAT 11/10/2022 8:02 AM CDT BASIC METABOLIC PANEL ANABEL 11/10/2022 6:50 AM CDT MAGNESIUM ANABEL 11/10/2022 6:50 AM CDT POCT GLUCOSE - CORREA DOCKED DEVICE Routine 11/10/2022 1:[address] ABD+PEL W CON STAT 11/09/2022 11:1 9 PM CDT ECG 12-LEAD Routine 11/09/2022 10:54 PM CDT XR CHEST PORTABLE STAT 11/09/2022 9:5 9 PM CDT COMPREHENSIVE METABOLIC PANEL STAT 11/09/2022 9:39 PM CDT CBC W/DIFF AUTOMATED STAT 11/09/2022 9:39 PM CDT LIPASE STAT 11/09/2022 9:39 PM CDT BASIC METABOLIC PANEL Routine 10/16/2022 4:00 AM CDT CBC W/DIFF AUTOMATED Routine 10/16/2022 4:00 AM CDT documented in this encounter Results * (ABNORMAL) POCT glucose (11/11/2022 11:23 AM CDT) GLUCOSE POC 144(H) 70 - 99 mg/dL 11/11/2022 11:27 AM CDT [facility] 11/11/2022 11:2 3 AM CDT us Soraya Sanz MD POCT ORDERABLES - DEVICE Final Result [facility] [address] [place] [address], [place] [phone] * NM RENAL SCAN W LASIX (11/11/2022 8:07 AM CDT) Anatomical Region Laterality Modality Abdomen Nuclear Medicine 11/13/2022 7:56 AM CDT Impressions 11/13/2022 8:12 AM CDT =====IMPRESSION:===== 1. Persistent dilatation of the proximal collecting system right greater than left. There is however no evidence of significant residual mechanical obstruction. Ordered By: MICAH AGGARWAL Interpreted By: Taras Jerez MD, 11/13/2022 7:56 AM Narrative 11/13/2022 8:12 AM CDT Examination: Renal scan Exam date/time: 11/11/2022 6:24 AM Reason For Exam: ??Chronic dilatation of the renal collecting systems, history of previous pyeloplasty. ?? Comparison: 05/14/2006 Technique: ??After intravenous injection of 7.5 MCI of 99M technetium labeled MAG 3, posterior imaging was performed over the kidneys. Patient received and additional 20. ??mg of lasix 5 minutes after intravenous injection of radiopharmaceutical. Immediate blood flow imaging was performed at 2 seconds per frame for a total of 60 seconds. Posterior planar imaging was then performed at 1 minute per frame for a total of 30 minutes. Time activity curves were generated for the blood flow cure and the renal cortex curve. Findings: ?? Initial angiographic phase images demonstrate fairly symmetrical [...] dilated proximal left collecting system. The T1/2 clearance time of the left kidney is somewhat prolonged [...] with no evidence of significant mechanical obstruction. Procedure Note Taras Jerez MD - 11/13/2022 Examination: Renal scan Exam date/time: 11/11/2022 6:24 AM Reason For Exam: Chronic dilatation of the renal collecting systems,history of previous pyeloplasty. Comparison: 05/14/2006 Technique: After intravenous injection of 7.5 MCI of 99M technetiumlabeled MAG 3, posterior imaging was performed over the kidneys. Patientreceived and additional 20. mg of lasix 5 minutes after intravenousinjection of radiopharmaceutical. Immediate blood flow imaging wasperformed at 2 seconds per frame for a total of 60 seconds. Posteriorplanar imaging was then performed at 1 minute per frame for a total of 30minutes. Time activity curves were generated for the blood flow cure andthe renal cortex curve. Findings: Initial angiographic phase images demonstrate fairlysymmetrical perfusion of both kidneys. Split differential renal functionattributes 52% of renal function to the left kidney and 48% to the rightkidney. Type/activity renal clearance curves demonstrate prompt visualization ofthe filter tracer within the left collecting system. There is fairly goodclearance of activity from left renal parenchyma with some accumulation ofactivity within a dilated proximal left collecting system. The T1/2clearance time of the left kidney is somewhat prolonged at 16.3 minutes,however this is primarily due to retained counts in the collecting system.Following administration of Lasix there is prompt washout of activity fromthe proximal left collecting system consistent with no evidence ofsignificant mechanical obstruction. On the right side and there is also accumulation of tracer within adilated proximal right renal collecting system. T1 half clearance time isprolonged at 33.8 minutes. With Lasix administration there is good washoutof activity from the dilated proximal right collecting system againconsistent with no evidence of significant mechanical obstruction. =====IMPRESSION:===== 1. Persistent dilatation of the proximal collecting system right greaterthan left. There is however no evidence of significant residual mechanicalobstruction. Ordered By: MICAH AGGARWAL Interpreted By: Taras Jerez MD, 11/13/2022 7:56 AM Micah MARIE NUC MED Final Result * (ABNORMAL) POCT glucose (11/11/2022 8:04 AM CDT) GLUCOSE POC 138(H) 70 - 99 mg/dL 11/11/2022 8:07 AM CDT [facility] 11/11/2022 8:04 AM CDT us Soraya Sanz MD POCT ORDERABLES - DEVICE Final Result [facility] [address] [place] [address], [place] [phone] * (ABNORMAL) POCT glucose (11/10/2022 8:31 PM CDT) GLUCOSE POC 188(H) 70 - 99 mg/dL 11/10/2022 8:33 PM CDT [facility] 11/10/2022 8:31 PM CDT us Soraya Sanz MD POCT ORDERABLES - DEVICE Final Result [facility] [address] [place] [address], [place] [phone] * (ABNORMAL) POCT glucose (11/10/2022 4:51 PM CDT) GLUCOSE POC 169(H) 70 - 99 mg/dL 11/10/2022 4:57 PM CDT [facility] 11/10/2022 4:51 PM CDT us Soraya Sanz MD POCT ORDERABLES - DEVICE Final Result Performing Organization Address City/[facility]/ZIP Co de Phone Number [facility] [address] [place] [address], [place] [phone] * (ABNORMAL) POCT glucose (11/10/2022 3:59 PM CDT) GLUCOSE POC 215(H) 70 - 99 mg/dL 11/10/2022 4:01 PM CDT [facility] 11/10/2022 3:59 PM CDT us Soraya Sanz MD POCT ORDERABLES - DEVICE Final Result [facility] [address] [place] [address], [place] [phone] * (ABNORMAL) POCT glucose (11/10/2022 12:19 PM CDT) GLUCOSE POC 131(H) 70 - 99 mg/dL 11/10/2022 12:24 PM CDT [facility] 11/10/2022 12:1 9 PM CDT Soraya Sanz MD POCT ORDERABLES - DEVICE Final Result Performing Organization Address City/[facility]/ZIP Co de Phone Number [facility] [address] [place] [address], [place] [phone] * (ABNORMAL) POCT glucose (11/10/2022 8:18 AM CDT) GLUCOSE POC 132(H) 70 - 99 mg/dL 11/10/2022 8:25 AM CDT [facility] 11/10/2022 8:18 AM CDT Soraya Sanz MD POCT ORDERABLES - DEVICE Final Result Performing Organization Address [facility] Co de Phone Number [facility] [address] [place] [address], [place] [phone] * (ABNORMAL) URINALYSIS WI REFLEX TO CULTURE (11/10/2022 8:02 AM CDT) SPECIMEN TYPE URINE CLEAN CATCH 11/10/2022 8:05 AM CDT [facility] COLOR (U) COLORLESS 11/10/2022 8:13 AM CDT [facility] TRANSPARENCY CLEAR 11/10/2022 8:13 AM CDT [facility] SPECIFIC GRAVITY (U) 1.037(H) 1.001 - 1.030 11/10/2022 8:13 AM CDT [facility] U PH 6.0 5.0 - 9.0 11/10/2022 8:13 AM T [facility] LEUKOCYTES (U) NEGATIVE NEGATIVE 11/10/2022 8:13 AM T [facility] NITRITES NEGATIVE NEGATIVE 11/10/2022 8:13 AM T [facility] PROTEIN RANDOM (U) 30(H) <30 MG/DL 11/10/2022 8:13 AM T [facility] GLUCOSE (U) NORMAL NORMAL MG/DL 11/10/2022 8:13 AM T [facility] KETONES MG/DL (U) NEGATIVE NEGATIVE MG/DL 11/10/2022 8:13 AM [facility] UROBILINOGEN NORMAL NORMAL MG/DL 11/10/2022 8:13 AM [facility] BILIRUBIN (U) NEGATIVE NEGATIVE MG/DL 11/10/2022 8:13 AM T [facility] BLOOD (U) NEGATIVE NEGATIVE 11/10/2022 8:13 AM [facility] CULTURE & SENSITIVITY INDICATED? CULTURE IS NOT INDICATED 11/10/2022 8:13 AM [facility] WBC/HPF 1 <6 /HPF 11/10/2022 8:13 AM T [facility] RBC/HPF 2 <6 /HPF 11/10/2022 8:13 AM T [facility] SQUAMOUS EPITHELIALS RARE /HPF 11/10/2022 8:13 AM T [facility] URINE SPECIMEN OBTAINED BY CLEAN CATCH PROCEDURE / Unknown 11/10/2022 8:02 AM CDT us Wanda Langston TWISTING DEPARTMENT END FINDER URINE ORDERABLES Final Resu lt [facility] [address] [place] [address], * (ABNORMAL) MAGNESIUM (11/10/2022 6:50 AM CDT) MAGNESIUM 1.7(L) 1.8 - 2.4 MG/DL 11/10/2022 8:16 AM CDT [facility] 11/10/2022 6:50 AM CDT Janelle Pimentel DO LABORATORY Final Result [facility] [address] [place] [address], * (ABNORMAL) BASIC METABOLIC PANEL (11/10/2022 6:50 AM CDT) GLUCOSE 111(H) 70 - 99 MG/DL 11/10/2022 8:16 AM CDT [facility] BUN 14 7 - 18 MG/DL 11/10/2022 8:16 AM CDT [facility] CREATININE S/P/B 0.89 0.55 - 1.02 MG/DL 11/10/2022 8:16 AM CDT [facility] SODIUM S/P/B 138 136 - 145 MMOL/L 11/10/2022 8:16 AM CDT [facility] POTASSIUM S/P/B 3.7 3.5 - 5.1 MMOL/L 11/10/2022 8:16 AM CDT [facility] CHLORIDE S/P/B 107 100 - 108 MMOL/L 11/10/2022 8:16 AM CDT [facility] CO2 25.6 21 - 32 MMOL/L 11/10/2022 8:16 AM CDT [facility] CALCIUM S/P/B 8.5 8.5 - 10.1 MG/DL 11/10/2022 8:16 AM CDT [facility] ANION GAP 5.4 5 - 15 MMOL/L 11/10/2022 8:16 AM CDT [facility] BUN CREATININE RATIO 15.7 6 - 26 11/10/2022 8:16 AM CDT [facility] GFR ESTIMATE 78(L) >90 ML/MIN/1.7 3 M2 11/10/2022 8:16 AM CDT [facility] Comment: NOTE: eGFR is not calculated for patients <18 years of age. This is an estimated GFR calculation using the new CKD EPI creatinine equation without race and so does not require a correction factor for race. This estimated GFR should not be used for calculating drug doses. 11/10/2022 6:50 AM CDT Janelle Pimentel DO LABORATORY Final Result [facility] [address] [place] [id number], [place] [phone] * (ABNORMAL) POCT glucose (11/10/2022 1:20 AM CDT) GLUCOSE POC 205(H) 70 - 99 mg/dL 11/10/2022 1:21 AM CDT [facility] 11/10/2022 1:20 AM CDT us Janelle Pimentel DO POCT ORDERABLES - DEVICE Fin al Result [facility] [address] [place] [id number], [place] [phone] * CT ABD+PEL W IV CON ONLY (11/09/2022 11:19 PM CDT) Anatomical Region Laterality Modality Abdomen Computed Tomogra phy 11/09/2022 11:4 3 PM CDT Impressions 11/09/2022 11:47 PM CDT IMPRESSION: No etiology for acute abdominal pain is demonstrated. No interval change in severe right hydronephrosis with delayed contrast excretion in the right kidney. Bilateral renal calculi. Referred By: ?? Interpreted By: Oj Kang MD, 11/09/2022 11:43 PM Narrative 11/09/2022 11:[address] abdomen and pelvis with contrast INDICATION: Nausea and vomiting. ??Abdominal pain. Comparison is 11/08/2022. Radiation dose reduction technique(s) were used. TECHNIQUE: Axial, coronal and sagittal images from the lung bases through the pubic symphysis with intravenous contrast. FINDINGS: The lung bases are clear. ??Normal heart size. Some excreted contrast material is noted in the gallbladder lumen following the recent CT study. ??The liver, spleen, pancreas and adrenals are unremarkable. The right kidney again shows severe hydronephrosis and delayed contrast excretion. ??The right ureter is nondilated and the findings could be due to a ureteropelvic junction obstruction. ??A 3 mm nonobstructing calculus is seen towards the upper pole. The left kidney shows a 3 mm nonobstructing calculus but is otherwise unremarkable. No upper abdominal or periaortic adenopathy. ??There is aortoiliac calcification. Scans the pelvis show no mass, lymphadenopathy or free fluid. ??Discectomy noted. ??The urinary bladder is unremarkable. The stomach and small bowel loops appear normal. ??No small bowel obstruction. ??No free air. The appendix is normal. ??Negative for colitis or diverticulitis. Bony structures are unremarkable. Procedure Note Oj Kang MD - 11/09/2022 CT abdomen and pelvis with contrast INDICATION: Nausea and vomiting. Abdominal pain. Comparison is 11/08/2022. Radiation dose reduction technique(s) were used. TECHNIQUE: Axial, coronal and sagittal images from the lung bases throughthe pubic symphysis with intravenous contrast. FINDINGS: The lung bases are clear. Normal heart size. Some excreted contrast material is noted in the gallbladder lumenfollowing the recent CT study. The liver, spleen, pancreas and adrenalsare unremarkable. The right kidney again shows severe hydronephrosis and delayed contrastexcretion. The right ureter is nondilated and the findings could be dueto a ureteropelvic junction obstruction. A 3 mm nonobstructing calculusis seen towards the upper pole. The left kidney shows a 3 mm nonobstructing calculus but is otherwiseunremarkable. No upper abdominal or periaortic adenopathy. There is aortoiliaccalcification. Scans the pelvis show no mass, lymphadenopathy or free fluid. Discectomynoted. The urinary bladder is unremarkable. The stomach and small bowel loops appear normal. No small bowelobstruction. No free air. The appendix is normal. Negative for colitis or diverticulitis. Bony structures are unremarkable. IMPRESSION: No etiology for acute abdominal pain is demonstrated. No interval change in severe right hydronephrosis with delayed contrastexcretion in the right kidney. Bilateral renal calculi. Referred By: Interpreted By: Oj Kang MD, 11/09/2022 11:43 PM us Erica Keating MD CT Final Result * ECG 12 lead (11/09/2022 10:54 PM CDT) 11/09/2022 10:5 4 PM CDT Narrative [facility] - 11/10/2022 5:53 AM CDT ?[place]le[facility]ij[facility] Fermin ? [address] [facility] ? Test Date: ?2022-11-09 Pat Name: ? LENA YOUNGBLOOD ?Department: ?? 41 ? Room: ? A508 Gender: ? Female ? 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 Requested By: ERICA BAER Order Number: [id number] ? Reading MD: ?? Alexei Rodríguez ? Measurements Intervals ?[place] ? Rate: ? 101 ?P: ?7 [place]: ? 169 ?QRS: ?28 QRSD: ? 88 ? T: ?56 QT: ? 321 ? QTc: ?416 ? Interpretive Statements SINUS TACHYCARDIA NONSPECIFIC T-WAVE ABNORMALITY ABNORMAL RHYTHM ECG Compared to ECG 11/08/2022 10:31:14 Sinus rhythm no longer present T-wave abnormality still present Procedure Note Alexei Rodríguez MD - 11/10/[address]22 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 * XR CHEST PORTABLE (11/09/2022 9:59 PM CDT) Anatomical Region Laterality Modality Chest Radiographic Shelli ging 11/09/2022 10:0 1 PM CDT Impressions 11/09/2022 10:02 PM CDT IMPRESSION: No active disease. Referred By: ?? Interpreted By: Oj Kang MD, 11/09/2022 10:01 PM Narrative 11/09/2022 10:02 PM CDT Portable chest INDICATION: Abdominal pain. Comparison is October 11, 2022. TECHNIQUE: Single AP chest film. FINDINGS: Heart size and pulmonary vasculature are normal. ??The lungs are clear. ??No pleural fluid or pneumothorax. ??No bony abnormality. Procedure Note Oj Kang MD - 11/09/2022 Portable chest INDICATION: Abdominal pain. Comparison is October 11, 2022. TECHNIQUE: Single AP chest film. FINDINGS: Heart size and pulmonary vasculature are normal. The lungs areclear. No pleural fluid or pneumothorax. No bony abnormality. IMPRESSION: No active disease. Referred By: Interpreted By: Oj Kang MD, 11/09/2022 10:01 PM us Erica Keating MD GENERAL IMAGING Final Result * LIPASE (11/09/2022 9:39 PM CDT) Pathologist [facility] LIPASE 25 13 - 75 UNITS/L 11/09/2022 10:22 PM CDT [facility] 11/09/2022 9:39 PM CDT Nicole MARIE LABORATORY Final Result [facility] [address] [place] [address], [place] [phone] * (ABNORMAL) COMPREHENSIVE METABOLIC PANEL (11/09/2022 9:39 PM CDT) GLUCOSE 209(H) 70 - 99 MG/DL 11/09/2022 10:22 PM CDT [facility] BUN 18 7 - 18 MG/DL 11/09/2022 10:22 PM CDT [facility] CREATININE S/P/B 1.14(H) 0.55 - 1.02 MG/DL 11/09/2022 10:22 PM CDT [facility] SODIUM S/P/B 134(L) 136 - 145 MMOL/L 11/09/2022 10:22 PM CDT [facility] POTASSIUM S/P/B 3.8 3.5 - 5.1 MMOL/L 11/09/2022 10:22 PM CDT [facility] CHLORIDE S/P/B 99(L) 100 - 108 MMOL/L 11/09/2022 10:22 PM CDT [facility] CO2 28.5 21 - 32 MMOL/L 11/09/2022 10:22 PM CDT [facility] CALCIUM S/P/B 9.7 8.5 - 10.1 MG/DL 11/09/2022 10:22 PM T [facility] BILIRUBIN TOTAL S/P/B 0.5 0.2 - 1.2 MG/DL 11/09/2022 10:22 PM T [facility] Comment: THIS ASSAY IS NOT RECOMMENDED FOR PATIENTS UNDERGOING TREATMENT WITH ELTROMBOPAG DUE TO THE POTENTIAL FOR FALSELY ELEVATED RESULTS. TOTAL PROTEIN S/P/B 9.4(H) 6.4 - 8.2 G/DL 11/09/2022 10:22 PM T [facility] ALBUMIN S/P/B 3.8 3.4 - 5.0 G/DL 11/09/2022 10:22 PM T [facility] AST 18 15 - 37 U/L 11/09/2022 10:22 PM T [facility] ALT 29 14 - 55 U/L 11/09/2022 10:22 PM T [facility] ALKALINE PHOSPHATASE S/P/B 149(H) 50 - 136 U/L 11/09/2022 10:22 PM T [facility] ANION GAP 6.5 5 - 15 MMOL/L 11/09/2022 10:22 PM CDT [facility] BUN CREATININE RATIO 15.8 6 - 26 11/09/2022 10:22 PM CDT [facility] A/G RATIO 0.7(L) 1.0 - 2.0 RATIO 11/09/2022 10:22 PM CDT [facility] GFR ESTIMATE 58(L) >90 ML/MIN/1.7 3 M2 11/09/2022 10:22 PM CDT [facility] Comment: NOTE: eGFR is not calculated for patients <18 years of age. This is an estimated GFR calculation using the new CKD EPI creatinine equation without race and so does not require a correction factor for race. This estimated GFR should not be used for calculating drug doses. 11/09/2022 9:39 PM CDT us Nicole MARIE LABORATORY Final Result [facility] [address] [place] [address], [place] [phone] * (ABNORMAL) CBC W/DIFF AUTOMATED (11/09/2022 9:39 PM CDT) WBC 10.7 4.5 - 11.0 x10'3/uL 11/09/2022 9:51 PM CDT [facility] RBC 4.46 4.20 - 5.40 x10'6/uL 11/09/2022 9:51 PM CDT [facility] HGB 13.5 12.0 - 16.0 G/DL 11/09/2022 9:51 PM CDT [facility] HCT 39.9 38.0 - 48.0 % 11/09/2022 9:51 PM CDT [facility] MCV 89.5 81.0 - 99.0 FL 11/09/2022 9:51 PM CDT [facility] MCH 30.3 27.0 - 31.0 PG 11/09/2022 9:51 PM CDT [facility] MCHC 33.8 32.0 - 36.0 G/DL 11/09/2022 9:51 PM CDT [facility] RDW 13.1 11.5 - 14.5 % 11/09/2022 9:51 PM CDT [facility] PLT 325 130 - 400 x10'3/uL 11/09/2022 9:51 PM CDT [facility] MPV 11.3 9.3 - 12.2 FL 11/09/2022 9:51 PM CDT [facility] DIFFERENTIAL TYPE AUTOMATED DIFFERENTIAL 11/09/2022 9:51 PM CDT [facility] NEUTROPHILS % 72.1 % 11/09/2022 9:51 PM CDT [facility] LYMPHOCYTES % 21.0 % 11/09/2022 9:51 PM CDT [facility] MONOCYTES % 5.4 % 11/09/2022 9:51 PM CDT [facility] EOSINOPHILS 0.6 % 11/09/2022 9:51 PM CDT [facility] BASOPHILS 0.5 % 11/09/2022 9:51 PM CDT [facility] IMMATURE GRANS % 0.4 % 11/10/19 9:51 PM CDT [facility] ABS. NEUTROPHILS TOTAL 7.73(H) 1.80 - 7.70 x10'3/uL 11/09/2022 9:51 PM CDT [facility] ABS. LYMPHOCYTES 2.25 1.00 - 4.80 x10'3/uL 11/09/2022 9:51 PM CDT [facility] ABS. MONOCYTES 0.58 0.24 - 0.86 x10'3/uL 11/09/2022 9:51 PM CDT [facility] ABS. EOSINOPHILS 0.06 0.04 - 0.36 x10'3/uL 11/09/2022 9:51 PM CDT [facility] ABS. BASOPHILS 0.05 0.01 - 0.08 x10'3/uL 11/09/2022 9:51 PM CDT [facility] ABS. IMMATURE GRANULOCYTES 0.04 0.00 - 0.49 x10'3/uL 11/09/2022 9:51 PM CDT [facility] 11/09/2022 9:39 PM CDT Nicole MARIE LABORATORY Final Result [facility] [address] [place] [address], * (ABNORMAL) CBC W/DIFF AUTOMATED (10/16/2022 4:00 AM CDT) WBC 10.9 4.5 - 11.0 x10'3/uL 11/17/2022 5:57 PM CDT [facility] RBC 3.99(L) 4.20 - 5.40 x10'6/uL 11/17/2022 5:57 PM CDT [facility] HGB 11.9(L) 12.0 - 16.0 G/DL 11/17/2022 5:57 PM CDT [facility] HCT 36.4(L) 38.0 - 48.0 % 11/17/2022 5:57 PM CDT [facility] MCV 91.2 81.0 - 99.0 FL 11/17/2022 5:57 PM CDT [facility] MCH 29.8 27.0 - 31.0 PG 11/17/2022 5:57 PM CDT [facility] MCHC 32.7 32.0 - 36.0 G/DL 11/17/2022 5:57 PM CDT [facility] RDW 13.1 11.5 - 14.5 % 11/17/2022 5:57 PM CDT [facility] PLT 300 130 - 400 x10'3/uL 11/17/2022 5:57 PM CDT [facility] MPV 11.6 9.3 - 12.2 FL 11/17/2022 5:57 PM CDT [facility] NEUTROPHILS % 60.0 % 11/17/2022 5:58 PM CDT [facility] LYMPHOCYTES % 33.0 % 11/17/2022 5:58 PM CDT [facility] MONOCYTES % 5.0 % 11/17/2022 5:58 PM CDT [facility] EOSINOPHILS 2.0 % 11/17/2022 5:58 PM CDT [facility] ABS. LYMPHOCYTES 3.60 1.00 - 4.80 x10'3/uL 11/17/2022 5:58 PM CDT [facility] ABS. NEUTROPHILS TOTAL 6.53 1.80 - 7.70 x10'3/uL 11/17/2022 5:58 PM CDT [facility] ABS. MONOCYTES 0.55 0.24 - 0.86 x10'3/uL 11/17/2022 5:58 PM CDT [facility] ABS. EOSINOPHILS 0.22 0.04 - 0.36 x10'3/uL 11/17/2022 5:58 PM CDT [facility] DIFFERENTIAL TYPE AUTOMATED DIFFERENTIAL 11/17/2022 5:58 PM CDT [facility] PLT EST. ADEQUATE 11/17/2022 5:58 PM CDT [facility] 10/16/2022 4:00 AM CDT us Soraya Sanz MD LABORATORY Final Result [facility] [address] [place] [address], * (ABNORMAL) BASIC METABOLIC PANEL (10/16/2022 4:00 AM CDT) GLUCOSE 88 70 - 99 MG/DL 11/17/2022 9:51 AM CDT [facility] BUN 12 7 - 18 MG/DL 11/17/2022 9:51 AM CDT [facility] CREATININE S/P/B 1.02 0.55 - 1.02 MG/DL 11/17/2022 9:51 AM CDT [facility] SODIUM S/P/B 141 136 - 145 MMOL/L 11/17/2022 9:51 AM CDT [facility] POTASSIUM S/P/B 4.1 3.5 - 5.1 MMOL/L 11/17/2022 9:51 AM CDT [facility] CHLORIDE S/P/B 106 100 - 108 MMOL/L 11/17/2022 9:51 AM CDT [facility] CO2 30.5 21 - 32 MMOL/L 11/17/2022 9:51 AM CDT [facility] CALCIUM S/P/B 10.0 8.5 - 10.1 MG/DL 11/17/2022 9:51 AM CDT [facility] ANION GAP 4.5(L) 5 - 15 MMOL/L 11/17/2022 9:51 AM CDT [facility] BUN CREATININE RATIO 11.8 6 - 26 11/17/2022 9:51 AM CDT [facility] GFR ESTIMATE 67(L) >90 ML/MIN/1.7 3 M2 11/17/2022 9:51 AM CDT [facility] Comment: NOTE: eGFR is not calculated for patients <18 years of age. This is an estimated GFR calculation using the new CKD EPI creatinine equation without race and so does not require a correction factor for race. This estimated GFR should not be used for calculating drug doses. 10/16/2022 4:00 AM CDT us Soraya Sanz MD LABORATORY Final Result [facility] [address] [place] [address], [place] [phone] documented in this encounter Visit Diagnoses Diagnosis Intractable vomiting- Primary Persistent vomiting Abdominal pain Abdominal pain, unspecified site Vomiting Vomiting alone Type 2 diabetes mellitus with diabetic neuropathic arthropathy, with long-term current use of insulin ([facility]) documented in this encounter Admitting Diagnoses Diagnosis Intractable vomiting Persistent vomiting documented in this encounter Administered Medications Inactive Administered Medications - up to 3 most recent administrations Medication Order MAR Action Action Date Dose Rate Site 0.9 % NaCl with KCl 20 mEq infusion at 75 mL/hr, Intravenous, Continuous, Starting on Sun11/10/22 at 0030, Until Sun11/11/22 at 1853 New Bag 11/11/2022 5:31 AM CDT 75 mL/hr New Bag 11/10/2022 3:57 PM CDT 75 mL/hr New Bag 11/10/2022 1:29 AM CDT 75 mL/hr amLODIPine (NORVASC) tablet 10 mg 10 mg, Oral, Daily, First dose on Sun11/10/22 at 1000, Until Discontinued Given 11/10/2022 10:23 AM CDT 10 mg atorvastatin (LIPITOR) tablet 20 mg 20 mg, Oral, Daily, First dose on Sun11/10/22 at 1000, Until Discontinued Given 11/10/2022 10:22 AM CDT 20 mg calcium carbonate (TUMS) chewable tablet 500 mg 500 mg, Oral, 2 times daily PRN, Indigestion, Starting on 11/11/22 at 1336, Until 11/11/22 at 1853 Given 11/11/2022 1:39 PM CDT 500 mg diphenhydrAMINE (BENADRYL) injection 25 mg 25 mg, Intravenous, Once, 1 dose, On Viky 11/09/22 at 2300, For IV administration, give no faster than 25 mg/min. Given 11/09/2022 11:07 PM CDT 25 mg diphenhydrAMINE (BENADRYL) injection 25 mg 25 mg, Intravenous, Once, 1 dose, On 11/11/22 at 0130, For IV administration, give no faster than 25 mg/min. Given 11/11/2022 1:11 AM CDT 25 mg Generic Radiopharmaceutical 7.5 millicurie 7.5 millicurie, Intravenous, IMG once as needed, 7.5 mCi Tc Mag 3, 1 dose, Starting on 11/11/22 at 0807, Until 11/11/22 at 0640 Given 11/11/2022 6:40 AM CDT 7.5 millicuries insulin glargine (LANTUS) injection 15 Units 15 Units, Subcutaneous, Nightly at bedtime, First dose on Sun11/10/22 at 0030, Until Discontinued Given 11/10/2022 8:43 PM CDT 15 Units Left Lower Abdomen Given 11/10/2022 1:29 AM CDT 15 Units Ri ght Arm insulin lispro (HUMALOG) injection 0-16 Units 0-16 Units, Subcutaneous, 3 times daily before meals, First dose on Sun11/10/22 at 0700, Until Discontinued, Blood Glucose (USUAL Dosing): [Less than 70:? Initiate Hypoglycemia Standing Orders] [71-140: ? 0 units] [141-180:? 4 units] [181-220:? 6 units] [221-260:? 8 units] [261-300:? 10 units] [301-350:? 12 units] [351-400:? 14 units] [Greater than 400:? 16 units and Call Physician] Given 11/10/2022 5:30 PM CDT 4 Units Left Arm insulin lispro (HUMALOG) injection 0-8 Units 0-8 Units, Subcutaneous, Nightly at bedtime, First dose on Sun11/10/22 at 0030, Until Discontinued, Blood Glucose (USUAL Dosing): [Less than 70:? Initiate Hypoglycemia Standing Orders] [71-180:? 0 units] [181-220:? 3 units] [221-260:? 4 units] [261-300:? 5 units] [301-350:? 6 units] [351-400:? 7 units] [Greater than 400:? 8 units and Call Physician] Given 11/10/2022 8:42 PM CDT 3 Units Left Arm Given 11/10/2022 1:29 AM CDT 3 Units Ri ght Arm iopamidol (ISOVUE-370) 76 % injection 100 mL 100 mL, Intravenous, IMG once as needed, Contrast, 1 dose, Starting on Sun11/09/22 at 2319, Until Sun11/09/22 at 2320 Given 11/09/2022 11:20 PM CDT 100 mLs lisinopril (PRINIVIL) tablet 20 mg 20 mg, Oral, Every evening, First dose on Sun11/10/22 at 2100, Until DiscontinuedIndications:hypertens ion Given 11/10/2022 8:41 PM CDT 20 mg magnesium sulfate IVPB 2 g 2 g, Intravenous, at 25 mL/hr, Once, 1 dose, On Sun11/10/22 at 1000 New Bag 11/10/2022 10:23 AM CDT 2 g 25 mL/hr metoclopramide (REGLAN) injection 10 mg 10 mg, Intravenous, Once, 1 dose, On Sun11/09/22 at 2030, Administer IV over 1-2 minutes Given 11/09/2022 9:33 PM CDT 10 mg morphine injection 4 mg 4 mg, Intravenous, Once, 1 dose, On Sun11/09/22 at 2145 Given 11/09/2022 11:06 PM CDT 4 mg ondansetron (ZOFRAN) injection 4 mg 4 mg, Intravenous, Once, 1 dose, On Sun11/10/22 at 0015, IV push over 2-5 minutes. Given 11/10/2022 1:12 AM CDT 4 mg ondansetron (ZOFRAN) injection 4 mg 4 mg, Intravenous, Every 8 hours PRN, Nausea, Vomiting, Starting on Sun11/10/22 at 0025, Until 11/11/22 at 1853, IV push over 2-5 minutes. Given 11/11/2022 7:53 AM CDT 4 mg oxyCODONE-acetaminophen (PERCOCET) 5-325 MG tablet 2 tablet 2 tablet, Oral, Every 4 hours PRN, Severe pain (Scale 8 - 10), Starting on Sun11/10/22 at 0938, Until 11/11/22 at 1853, Maximum dose of acetaminophen is 4000 mg from all sources in 24 hours. Given 11/10/2022 8:42 PM CDT 2 tablets pantoprazole (PROTONIX) injection 40 mg 40 mg, Intravenous, Once, 1 dose, On Viky 11/09/22 at 2030, Reconstitute each 40 mg vial with 10 mL normal saline to a final concentration of 4 mg/mL. Administer intravenously over a period of a least 2 minutes. Given 11/09/2022 9:38 PM CDT 40 mg pantoprazole EC (PROTONIX) tablet 40 mg 40 mg, Oral, 2 times daily, First dose on Sun11/10/22 at 1000, Until Discontinued, Do not break, chew, or crush. Given 11/10/2022 8:41 PM CDT 40 mg Given 11/10/2022 10:23 AM CDT 40 mg prochlorperazine (COMPAZINE) injection 10 mg 10 mg, Intravenous, Every 6 hours PRN, Nausea, Vomiting, Starting on Sun11/10/22 at 0025, Until 11/11/22 at 1853, If giving IV, administer diluted or undiluted by slow IV push at a maximum rate of 5 mg/minute. To reduce the risk of hypotension the patient must remain lying down and be observed for 30 minutes after receiving the medication. Given 11/10/2022 8:06 AM CDT 10 mg sodium chloride 0.9% bolus infusion 1,000 mL 1,000 mL, Intravenous, Administer over 60 Minutes, Once, 1 dose, On Viky 11/09/22 at 2145 New Bag 11/09/2022 11:07 PM CDT 1,000 mLs solifenacin (VESICARE) tablet 10 mg 10 mg, Oral, Daily, First dose on Sun11/10/22 at 1000, Until Discontinued, Do not break, chew, or crush. Given 11/10/2022 10:22 AM CDT 10 mg sucralfate (CARAFATE) tablet 1 g 1 g, Oral, 3 times daily before meals, First dose on Sun11/10/22 at 1100, Until Discontinued, Administer on empty stomach. Do not administer antacids within 30 minutes of sucralfate; separate administration of other medications and sucralfate by at least two hours. Given 11/11/2022 1:39 PM CDT 1 g Given 11/11/2022 5:31 AM CDT 1 g Given 11/10/2022 3:57 PM CDT 1 g venlafaxine XR (EFFEXOR-XR) 24 hr capsule 37.5 mg 37.5 mg, Oral, Nightly at bedtime, First dose on Sun11/10/22 at 2100, Until Discontinued, Swallow capsule whole or it may be opened and the contents sprinkled on applesauce. Given 11/10/2022 8:42 PM CDT 37.5 mg documented in this encounter Active and Recently Administered Medications Times are shown in CDT. Scheduled Medication Order 11/09/2022 11/10/2022 11/11/2022 amLODIPine (NORVASC) tablet 10 mg 10 mg, Oral, Daily, First dose on Sun11/10/22 at 1000, Until Discontinued 1023 (Given - Provider: Jalyn Christian RN) 0804 (Hold - Provider: Ruma Franco, DEANDRE - Reason: Nausea or Vomiting) atorvastatin (LIPITOR) tablet 20 mg 20 mg, Oral, Daily, First dose on Sun11/10/22 at 1000, Until Discontinued 1022 (Given - Provider: Jalyn Christian RN) 0804 (Hold - Provider: Ruma Franco, DEANDRE - Reason: Nausea or Vomiting) diphenhydrAMINE (BENADRYL) injection 25 mg (COMPLETED) 25 mg, Intravenous, Once, 1 dose, On Viky 11/09/22 at 2300, For IV administration, give no faster than 25 mg/min. 2307 (Given - Provider: Sarah Beth Bhardwaj, DEANDRE) diphenhydrAMINE (BENADRYL) injection 25 mg (COMPLETED) 25 mg, Intravenous, Once, 1 dose, On Sun11/11/22 at 0130, For IV administration, give no faster than 25 mg/min. 0111 (Given - Provider: Sunshine Talamantes, DEANDRE) insulin glargine (LANTUS) injection 15 Units 15 Units, Subcutaneous, Nightly at bedtime, First dose on Sun11/10/22 at 0030, Until Discontinued 0129 (Given - Provider: Sarah Beth Bhardwaj, DEANDRE)2042 (Given - Provider: Sunshine Talamantes, DEANDRE) insulin lispro (HUMALOG) injection 0-16 Units(Linked Group 1) 0-16 Units, Subcutaneous, 3 times daily before meals, First dose on Sun11/10/22 at 0700, Until Discontinued, Blood Glucose (USUAL Dosing): [Less than 70:? Initiate Hypoglycemia Standing Orders] [71-140: ? 0 units] [141-180:? 4 units] [181-220:? 6 units] [221-260:? 8 units] [261-300:? 10 units] [301-350:? 12 units] [351-400:? 14 units] [Greater than 400:? 16 units and Call Physician] 0805 (Not Given - Provider: Jalyn Christian RN - Reason: Nausea or Vomiting - Comment: patient not eating)1230 (Not Given - Provider: Jalyn Christian RN - Reason: Order parameters not met)1730 (Given - Provider: Jalyn Christian RN) 0804 (Not Given - Provider: Ruma Franco RN - Reason: Order parameters not met - Comment: bs 138)1334 (Not Given - Provider: Ruma Franco RN - Reason: Order parameters not met)1629 (Not Given - Provider: Ruma Franco RN - Reason: Other) insulin lispro (HUMALOG) injection 0-8 Units(Linked Group 1) 0-8 Units, Subcutaneous, Nightly at bedtime, First dose on Sun11/10/22 at 0030, Until Discontinued, Blood Glucose (USUAL Dosing): [Less than 70:? Initiate Hypoglycemia Standing Orders] [71-180:? 0 units] [181-220:? 3 units] [221-260:? 4 units] [261-300:? 5 units] [301-350:? 6 units] [351-400:? 7 units] [Greater than 400:? 8 units and Call Physician] 128 (Given - Provider: Sarah Beth Bhardwaj RN)2041 (Given - Provider: Sunshine Talamantes, RN) lisinopril (PRINIVIL) tablet 20 mg 20 mg, Oral, Every evening, First dose on Sun11/10/22 at 2100, Until Discontinued 2040 (Given - Provider: Sunshine Talamantes, DEANDRE) magnesium sulfate IVPB 2 g (COMPLETED) 2 g, Intravenous, at 25 mL/hr, Once, 1 dose, On Sun11/10/22 at 1000 1023 (New Bag - Provider: Jalyn Christian, DEANDRE)1222 (Infusion Stop Time - Provider: Jalyn Christian, DEANDRE) metoclopramide (REGLAN) injection 10 mg (COMPLETED) 10 mg, Intravenous, Once, 1 dose, On Sun11/09/22 at 2030, Administer IV over 1-2 minutes 2132 (Given - Provider: Leisa Anaya RN) morphine injection 4 mg (COMPLETED) 4 mg, Intravenous, Once, 1 dose, On Sun11/09/22 at 2145 2306 (Given - Provider: Sarah Beth Bhardwaj, DEANDRE) ondansetron (ZOFRAN) injection 4 mg (COMPLETED) 4 mg, Intravenous, Once, 1 dose, On Sun11/10/22 at 0015, IV push over 2-5 minutes. 0112 (Given - Provider: Sarah Beth Bhardwaj RN) pantoprazole (PROTONIX) injection 40 mg (COMPLETED) 40 mg, Intravenous, Once, 1 dose, On Sun11/09/22 at 2030, Reconstitute each 40 mg vial with 10 mL normal saline to a final concentration of 4 mg/mL. Administer intravenously over a period of a least 2 minutes. 213 (Given - Provider: Leisa Anaya RN) pantoprazole EC (PROTONIX) tablet 40 mg 40 mg, Oral, 2 times daily, First dose on Sun11/10/22 at 1000, Until Discontinued, Do not break, chew, or crush. 1023 (Given - Provider: Jalyn Christian RN)204 (Given - Provider: Sunshine Talamantes, DEANDRE) 0804 (Hold - Provider: Ruma Franco, DEANDRE - Reason: Nausea or Vomiting) sodium chloride 0.9% bolus infusion 1,000 mL (COMPLETED) 1,000 mL, Intravenous, Administer over 60 Minutes, Once, 1 dose, On Viky 11/09/22 at 2145 2307 (New Bag - Provider: Sarah Beth Bahrdwaj, DEANDRE) 0112 (Infusion Stop Time - Provider: Sarah Beth Bhardwaj RN) solifenacin (VESICARE) tablet 10 mg 10 mg, Oral, Daily, First dose on Sun11/10/22 at 1000, Until Discontinued, Do not break, chew, or crush. 1022 (Given - Provider: Jalyn Christian RN) 0805 (Hold - Provider: Ruma Franco, DEANDRE - Reason: Nausea or Vomiting) sucralfate (CARAFATE) tablet 1 g 1 g, Oral, 3 times daily before meals, First dose on Sun11/10/22 at 1100, Until Discontinued, Administer on empty stomach. Do not administer antacids within 30 minutes of sucralfate; separate administration of other medications and sucralfate by at least two hours. 1153 (Not Given - Provider: Jalyn Christian RN - Reason: Other - Comment: patient not eating)1557 (Given - Provider: Jalyn Christian RN) 0531 (Given - Provider: Sunshine Talamantes, DEANDRE)1339 (Given - Provider: Ruma Franco, DEANDRE)1600 (Canceled Entry - Provider: Automatic Discharge Provider - Comment: Automatically canceled at discontinue of medication order) venlafaxine XR (EFFEXOR-XR) 24 hr capsule 37.5 mg 37.5 mg, Oral, Nightly at bedtime, First dose on Sun11/10/22 at 2100, Until Discontinued, Swallow capsule whole or it may be opened and the contents sprinkled on applesauce. 2041 (Given - Provider: Sunshine Talamantes, DEANDRE) Continuous Medication Order 11/09/2022 11/10/2022 11/11/2022 0.9 % NaCl with KCl 20 mEq infusion at 75 mL/hr, Intravenous, Continuous, Starting on Sun11/10/22 at 0030, Until 11/11/22 at 1853 0129 (New Bag - Provider: Sarah Beth Bhardwaj RN)1557 (New Bag - Provider: Jalyn Christian RN) 0531 (New Bag - Provider: Sunshine Talamantes, DEANDRE) PRN Medication Order 11/09/2022 11/10/2022 11/11/2022 acetaminophen (TYLENOL) tablet 650 mg 650 mg, Oral, Every 4 hours PRN, Mild pain (Scale 1 - 3), Moderate pain (Scale 4 - 7), Starting on Sun11/10/22 at 0025, Until 11/11/22 at 1853, Maximum dose of acetaminophen is 4000 mg from all sources in 24 hours. calcium carbonate (TUMS) chewable tablet 500 mg 500 mg, Oral, 2 times daily PRN, Indigestion, Starting on 11/11/22 at 1336, Until 11/11/22 at 1853 1339 (Given - Provider: Ruma Franco RN) Generic Radiopharmaceutical 7.5 millicurie (COMPLETED) 7.5 millicurie, Intravenous, IMG once as needed, 7.5 mCi Tc Mag 3, 1 dose, Starting on 11/11/22 at 0807, Until 11/11/22 at 0640 0640 (Given - Provider: Gigi Smalls [facility]) iopamidol (ISOVUE-370) 76 % injection 100 mL (COMPLETED) 100 mL, Intravenous, IMG once as needed, Contrast, 1 dose, Starting on Viky 11/09/22 at 2319, Until Viky 11/09/22 at 2320 2320 (Given - Provider: Diana Hernandes, RTR) melatonin tablet 3 mg 3 mg, Oral, Nightly PRN, insomnia, Starting on Sun11/10/22 at 0025, Until 11/11/22 at 1853 ondansetron (ZOFRAN) injection 4 mg 4 mg, Intravenous, Every 8 hours PRN, Nausea, Vomiting, Starting on Sun11/10/22 at 0025, Until 11/11/22 at 1853, IV push over 2-5 minutes. 752 (Given - Provider: Ruma Franco RN) oxyCODONE-acetaminophen (PERCOCET) 5-325 MG tablet 1 tablet 1 tablet, Oral, Every 4 hours PRN, Moderate pain (Scale 4 - 7), Starting on Sun11/10/22 at 0937, Until 11/11/22 at 1853, Maximum dose of acetaminophen is 4000 mg from all sources in 24 hours. oxyCODONE-acetaminophen (PERCOCET) 5-325 MG tablet 2 tablet 2 tablet, Oral, Every 4 hours PRN, Severe pain (Scale 8 - 10), Starting on Sun11/10/22 at 0938, Until 11/11/22 at 185, Maximum dose of acetaminophen is 4000 mg from all sources in 24 hours. 2041 (Given - Provider: Sunshine Talamantes RN) polyethylene glycol (GLYCOLAX) packet 1 packet 1 packet, Oral, DAILY PRN, Constipation, Starting on Sun11/10/22 at 0025, Until 11/11/22 at 1853, Add to 8 oz of fluid. prochlorperazine (COMPAZINE) injection 10 mg 10 mg, Intravenous, Every 6 hours PRN, Nausea, Vomiting, Starting on Sun11/10/22 at 0025, Until 11/11/22 at 1853, If giving IV, administer diluted or undiluted by slow IV push at a maximum rate of 5 mg/minute. To reduce the risk of hypotension the patient must remain lying down and be observed for 30 minutes after receiving the medication. 805 (Given - Provider: Jalyn Christian RN) Linked Groups Order Group 1: insulin lispro (HUMALOG) injection 0-16 UnitsJump to med 0-16 Units, Subcutaneous, 3 times daily before meals, First dose on Sun11/10/22 at 0700, Until Discontinued, Blood Glucose (USUAL Dosing): [Less than 70:? Initiate Hypoglycemia Standing Orders] [71-140: ? 0 units] [141-180:? 4 units] [181-220:? 6 units] [221-260:? 8 units] [261-300:? 10 units] [301- 350:? 12 units] [351-400:? 14 units] [Greater than 400:? 16 units and Call Physician] And insulin lispro (HUMALOG) injection 0-8 UnitsJump to med 0-8 Units, Subcutaneous, Nightly at bedtime, First dose on Sun11/10/22 at 0030, Until Discontinued, Blood Glucose (USUAL Dosing): [Less than 70:? Initiate Hypoglycemia Standing Orders] [71-180:? 0 units] [181-220:? 3 units] [221-260:? 4 units] [261-300:? 5 units] [301-350:? 6 units] [351-400:? 7 units] [Greater than 400:? 8 units and Call Physician] documented in this encounter Additional Health Concerns Assessment Noted Time PHQ-9 Depression Total Score: 0 03/08/19 22 9:30 AM KINDERGARTEN PARAPROFESSIONAL documented as of this encounter Care Teams Weighter Relationship Specialty Start Date End Date Yasmin Segura II, MD [address] [place] [address] PCP - General FAMILY PRACTICE 03/09/21 [place] [address] [place] [address] PODIATRY/SURGERY 05/05/22 documented as of this encounter
--- OUTSIDE RECORDS SUMMARY | 2024-03-02 22:23 | XMS_ITS | Encounter Summary ---
Author Organization [facility] Address [address] [place] [address]. [place] [address] [place] [address] Care Team Providers Care 5Th Grade Teacher Name Role Phone Colton SILVEIRA MD, Abiodun Rushing Primary Care Provider Victoriano Langston MD Unavailable [phone] Reason for Visit * Reason Onset Date Comments Follow Up Call 11/09/2022 Patient admitted to [facility] from 11/09-11/11/22. Encounter Details Date Type Department Care Team (Latest Contact Info) Description 11/14/2022 Hospital Follow-up Call [facility] [place] [address] Ryanne Lambert, YINA Follow Up Call (Patient admitted to [facility] from 11/09-11/11/22.) Social History Tobacco Use Types Packs/Day Years [...] [facility] of Occupat ional [facility] - Occupational Stress Questionnaire Answer [...] st Contact Info) Description 03/14/2024 11:45 AM COLD ROLLING SUPERVISOR Office Visit [facility] [phone] Marvin Mckeon MD [facility] [address] [place] [address] 03/20/2024 11:30 AM COLD ROLLING SUPERVISOR Office Visit [facility] Family Medicine - [place] [address] [place] [phone] Abiodun Segura II, MD [address] [place] [address] documented as of this encounter Goals Goal Patient Goal Type Associated Problems Recent Progress Patient-Stated? Author Family - family caregiver with be involved in care transitions and discharge planning Lifestyle No Natty Cheek, RN documented as of this encounter Visit Diagnoses Not on filedocumented in this encounter Additional Health Concerns Assessment Noted Time PHQ-9 Depression Total Score: 0 03/08/19 9:30 AM COLD ROLLING SUPERVISOR documented as of this encounter Care Teams 5Th Grade Teacher Relationship Specialty Start Date End Date Abiodun Segura II, MD [address] [place] [address] PCP - General FAMILY PRACTICE 03/09/21 [place] [address] [place] [address] PODIATRY/SURGERY 05/05/22 documented as of this encounter
--- OUTSIDE RECORDS SUMMARY | 2024-03-02 22:23 | XMS_ITS | Encounter Summary ---
Author Organization [facility] Address [address] [place] [address]. [place] [address] [place] [address] Care Team Providers Care Lung Splitter Name Role Phone Colton SILVEIRA MD, Abiodun Rushing Primary Care Provider Victoriano Langston MD Unavailable [phone] Reason for Visit * Reason Onset Date Comments Results 12/18/2022 Encounter Details Date Type Department Care Team (Late st Contact Info) Description 12/18/2022 Telephone [facility] Medical Group Multispecialty Care - [facility] [address] [facility], [address] [place] [phone] Gurinder Saldivar MD [address] [facility] [address] [place] [address] Results Social History Tobacco Use [...] Recorded Patient Health Questionnaire-2 Score 0 12/13/2022 [facility] of Occupat ional Health - Occupational [...] slept in a snf (including now)? No 11/10/2022 Comments No Sex [...] Progress Notes * Ira Easton MA - 12/18/2022 3:46 PM CDT Patient aware of results. Stomach ulcer biopsies were benign.Patient is scheduled for an EGD in December * Ira Easton MA - 12/18/2022 3:45 PM CDT ----- Message from Gurinder Saldivar MD sent at 12/15/2022 5:37 PM CDT ----- Your stomach ulcer biopsies were benign. Please call the office to schedule a repeat EGD soon to make sure this ulcer is healing. documented in this encounter Plan of Treatment Upcoming Encounters Date Type Department Care Team (Late st Contact Info) Description 03/14/2024 11:45 AM TERMINAL MAKE UP OPERATOR Office Visit [facility] [phone] Marvin Mckeon MD [facility] [address] [place], [place] [id number] 03/20/2024 11:30 AM TERMINAL MAKE UP OPERATOR Office Visit [facility] Medical Group Family Medicine - [place] [address] [place] [phone] Abiodun Segura II, MD [address] [place], [place] [phone] documented as of this encounter Goals Goal Patient Goal Type Associated Problems Recent Progress Patient-Stated? Author Family - family caregiver with be involved in care transitions and discharge planning Lifestyle No Natty Cheek, RN documented as of this encounter Visit Diagnoses Not on filedocumented in this encounter Additional Health Concerns Assessment Noted Time PHQ-9 Depression Total Score: 0 03/08/19 9:30 AM TERMINAL MAKE UP OPERATOR documented as of this encounter Care Teams Lung Splitter Relationship Specialty Start Date End Date Abiodun Segura II, MD [address] [place], [place] [phone] PCP - General FAMILY PRACTICE 03/09/21 [place] [address] [place] [address] PODIATRY/SURGERY 05/05/22 documented as of this encounter
--- OUTSIDE RECORDS SUMMARY | 2024-03-02 22:23 | XMS_ITS | Encounter Summary ---
Author Organization [facility] Address [address] [place] [address]. [place] [address] [place] [address] Care Team Providers Care Deputy Insurance Commissioner Name Role Phone Colton SILVEIRA MD, Abiodun Rushing Primary Care Provider Victoriano Langston MD Unavailable [phone] Reason for Visit * Auth/Cert (Routine) Specialty Diagnoses / Procedures Referred By Contac t Referred To Contact Diagnoses Peptic ulcer Epigastric abdominal pain peptic ulcer, epigastric pain Procedures UPPER GI ENDOSCOPY,DIAGNOSIS EGD Gurinder Saldivar MD [address] [address] Phone: tel: fax: Referral ID Status Reason Start Date Expiration Date Visits Re quested Visits Authorized [id number] 1 1 Encounter Details Date Type Department Care Team (Late st Contact Info) Description 12/25/2022 11:37 AM SUGAR LABORATORY ASSISTANT Anesthesia Event [facility] Endo/GI [place], [place] [phone] Douglas Loja MD [address] [place], [place] [phone] Anesthesia Record Procedure Summary Procedure Name Responsible Anesthesiologist Anesthesia Start Time Anesthesia Stop Time EGD Douglas Loja MD 12/25/22 1137 12/25/22 1 147 Events Date Time Event Comment 12/25/2022 1044 1044 AN Anesthesia Prepped 1114 AN FIELD STAFF Prepped 1137 An Start Patient ID and consent checked and patient reassessed. 1137 An Start Data 1140 Nasal Cannula Applied 1141 Bite Block Inserted 1142 An Induction The patient was reevaluated immediately before moderate or deep sedation use and before anesthesia induction. 1142 Anesthesia Ready 1145 An Emergence 1147 Bite Block Removed 1147 Nasal Cannula Removed 1147 an stop data 1147 Post Anesthetic Care Handoff I completed my handoff to the receiving nurse during which we: 1. Identified the patient 2. Identified the responsible provider 3. Reviewed the pertinent medical history 4. Discussed the surgical course 5. Reviewed intra-op anesthesia management and issues during anesthesia 6. Set expectations for post-procedure period 7. Allowed opportunity for questions and acknowledgement of understanding. 1147 An Stop Meds Name Total lidocaine (PF) (XYLOCAINE) 2% injection 100 mg propofol (DIPRIVAN) 200 mg/20 mL injecti on 80 mg lactated ringers infusion 100 mL * Agents Name O2 Ancillary O2 * Blood No blood administrations on file. Lines, Drains, and Airways Type Details Placement Removal Peripheral IV Placement Date: 08/11; Placement Time: 1135; Placed Outside of This Facility?: No; Size: 22 G; Orientation: Left, Posterior; Location: Forearm; Site Prep: Chlorhexidine; Local Anesthetic: None; Inserted By: Nita; Insertion attempts: Other (Comment) (6); Ultrasound-guided Placement?: No; Patient Tolerance: Tolerated well; Removal Date: 12/25/22; Removal Time: 1210; Removal Reason: Patient Discharged 12/25/22 1135 by Nita Toth RN 12/25/22 1210 by Jacy Rodriguez RN documented in this encounter Social History [...] Recorded Patient Health Questionnaire-2 Score 0 12/13/2022 [facility] Occupat ional Health - Occupational [...] Segundo RN Active documented in this encounter OR Notes * Anesthesia Postprocedure Evaluation - Douglas Loja MD - 12/25/2022 12:11 PM CST Anesthesia Post-op Note Lena Mcneal Procedure(s): EGD Anesthesia type: general Vitals: 12/25/22 1200 BP: (!) 162/89 Vitals: 12/25/22 1145 Pulse: 89 Vitals: 12/25/22 1145 Resp: 15 Vitals: 12/25/22 1145 Temp: 36.8 ??C Vitals: 12/25/22 1200 SpO2: 98% Patient Location: Phase II/Outpatient Level of Consciousness: awake, oriented and alert Pain Management: adequate analgesia Airway Patency: patent Respiratory Status: acceptable Cardiovascular Status: acceptable Post-Op Nausea: none Postoperative Hydration: euvolemic No notable events documented. R LABORATORY ASSISTANT * Anesthesia Preprocedure Evaluation - Douglas Loja MD - 12/25/2022 10:42 AM CST Anesthesia ROS/MED History Reviewed: Patient summary , ECG, Family history anesthesia, Anesthesia history , Medications , Labs , Images/Studies Pre-Anesthetic State: alert, awake and responds appropriately no history of anesthetic complications Pulmonary (-) COPD, sleep apnea, asthma Cardiovascular (+) hypertension, Peripheral vascular disease, hyperlipidemia(-) past PA, CHF, arrhythmia ROS comment: ECHO ++++++++++++++++++++++++++++++++++++ SUMMARY: ++++++++++++++++++++++++++++++++++++ The left ventricular systolic function is normal. Estimated left ventricular ejection fraction is 55-60%. Left ventricular diastolic function is normal. Wall motion appears normal in all segments. No significant valvular abnormality. Neuro/Psych (-) no seizures, no CVA Substance Use (-) smoker, vaping user GI/Hepatic/Renal (+) PUD(-) GERD, liver disease, renal disease Endo/Other (+) diabetes mellitus, (sub Q insulin), obese (-) blood dyscrasia GENERAL COMMENTS Review of patient's allergies indicates: Fish oil, Amoxicillin, and Penicillins Last Fluid Intake Date: 12/24/22 Last Fluid Intake Time: 1899 Last Solid Intake Date: 12/24/22 Last Solid Intake Time: 1899 Past Medical History: No date: Arthritis No date: Charcot foot due to diabetes mellitus ([facility]/HCC) ([facility]/HCC) Comment: LEFT FOOT No date: Constipation No date: COVID-19 No date: Diabetes mellitus ([facility]) ([facility]) No date: Diabetic neuropathy ([facility]) ([facility]) No date: Gastric ulcer No date: High cholesterol No date: Hypertension No date: Kidney stone No date: Renal disorder Comment: 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 No date: UTI (urinary tract infection) No date: Vision decreased Comment: blind right eye, poor vision left eye Past Surgical History: No date: AMPUTATION TOE; Left Comment: 2ND AND 3RD TOE No date: BLADDER SURGERY No date: EYE SURGERY 2004, 2020: HYSTERECTOMY Comment: hysterectomy, cervical surgery No date: RETINAL DETACHMENT SURGERY; Right NPO Status: Last Fluid Intake Date: 12/24/22 Last Fluid Intake Time: 1899 Last Solid Intake Date: 12/24/22 Last Solid Intake Time: 1899 Physical Evaluation Airway Mallampati: III Dental Pulmonary Breath sounds clear to auscultation Cardiovascular Rhythm: regular Rate: normal STOP-Bang Assessment: Do you snore loudly?: 1 Do you often feel tired or fatigued after your sleep?: 1 Has anyone ever observed you stop breathing in your sleep?: 0 Do you have or are you being treated for high blood pressure?: 1 Recent BMI (Calculated): 30.8 Is BMI greater than 35 kg/m2?: 0=No Age older than 50 years old?: 1=Yes Gender - Male: 0=No Anesthesia Plan ASA 3 Intravenous Induction Anesthesia type: general Plan for Airway: nasal cannula/simple face mask TIVA Informed Consent Anesthetic plan and risks discussed with patient of whom consent was obtained. . R LABORATORY ASSISTANT documented in this encounter Plan of Treatment Upcoming Encounters Date Type Department Care Team (Late st Contact Info) Description 03/14/2024 11:45 AM SUGAR LABORATORY ASSISTANT Office Visit [facility] [phone] Marvin Mckeon MD [facility] [address] [place] [address] 03/20/2024 11:30 AM SUGAR LABORATORY ASSISTANT Office Visit [facility] Family Medicine - [place] [address] [place] [phone] Abiodun Segura II, MD [address] [place] [address] documented as of this encounter Goals Goal [...] 1433, Pre-Op New Bag 12/25/2022 11:37 AM SUGAR LABORATORY ASSISTANT 50 mL/hr lidocaine (PF) (XYLOCAINE) 2 % injection Intravenous, PRN, Starting on Sun12/25/22 at 1142, Until Sun12/25/22 at 1147, Anesthesia Intra-Op Given 12/25/2022 11:42 AM SUGAR LABORATORY ASSISTANT 100 mg propofol (DIPRIVAN) IV bolus Intravenous, PRN, Starting on Sun12/25/22 at 1142, Until Sun12/25/22 at 1147, Anesthesia Intra-Op Given 12/25/2022 11:42 AM SUGAR LABORATORY ASSISTANT 80 mg documented in this encounter Additional Health Concerns Assessment Noted Time PHQ-9 Depression Total Score: 0 03/08/19 9:30 AM SUGAR LABORATORY ASSISTANT documented as of this encounter Care Teams Deputy Insurance Commissioner Relationship Specialty Start Date End Date Abiodun Segura II, MD [address] [place] [address] PCP - General FAMILY PRACTICE 03/09/21 [place] [address] [place] [address] PODIATRY/SURGERY 05/05/22 documented as of this encounter
--- OUTSIDE RECORDS SUMMARY | 2024-03-02 22:24 | XMS_ITS | Encounter Summary ---
Author Organization [facility] Address [address] [place] [address]. [place] [address] [place] [address] Care Team Providers Care Director Of Plant Operations Name Role Phone Colton SILVEIRA MD, Abiodun Rushing Primary Care Provider Victoriano Langston MD Unavailable [phone] Reason for Visit * Reason Onset Date Comments Advice 09/26/2022 Encounter Details Date Type Department Care Team (Late st Contact Info) Description 09/26/2022 Telephone [facility] Family Medicine - [place] [address] [place] [address] Abiodun Segura II, MD [address] [place] [address] Advice Social History Tobacco Use [...] Recorded Patient Health Questionnaire-2 Score 0 05/05/2022 [facility] - Occupational Stress Questionnaire Answer Date [...] in a nursing home (including now)? No 09/03/2022 Comments No [...] Answer Date of Assessment Author Status No 09/03/2022 9:25 PM CDT Azeem Tom RN Active * Are you blind or do you have serious difficulty seeing, even when wearing glasses? Answer Date of Assessment Author Status Yes 09/03/2022 9:25 PM CDT Azeem Tom RN Active * Do you have serious difficulty walking or climbing stairs? Answer Date of Assessment Author Status Yes 09/03/2022 9:25 PM CDT Azeem Tom RN Active * Do you have difficulty dressing or bathing? Answer Date of Assessment Author Status Yes 09/03/2022 9:25 PM CDT Azeem Tom RN Active * Because of a physical, mental, or emotional condition, do you have difficulty doing errands alone such as visiting a doctor's office or shopping? Answer Date of Assessment Author Status Yes 09/03/2022 9:25 PM CDT Azeem Tom RN Active documented as of this encounter Mental Status * Because of a physical, mental, or emotional condition, do you have serious difficulty concentrating, remembering, or making decisions? Answer Entry Date Author Status Yes 09/03/2022 9:25 PM CDT Azeem Tom RN Active documented in this encounter Progress Notes * Abiodun Segura II, MD - 09/26/2022 10:10 AM CDT Patient called. Having nausea on Trulicity 4.5 mg weekly. Will decrease dose to 3 mg weekly once her nausea resolves. * Abiodun Segura II, MD - 09/26/2022 10:10 AM CDT ----- Message from Opal Quintana MA sent at 09/26/2022 9:25 AM CDT ----- Please advise ----- Message ----- From: Cristela Pereira Sent: 09/26/2022 9:20 AM CDT To: Abiodun Benítez * Cristela Miguelina Pereira - 09/26/2022 9:18 AM CDT Patient was at [facility] ER 09/24/22 for stomache issues. She had a CAT Scan and was given IV floods. She is still having abd pain since on Trulicity. She is concerned and wants to know what to do about thismatter. Please call [phone] documented in this encounter Plan of Treatment Upcoming Encounters Date Type Department Care Team (Late st Contact Info) Description 03/14/2024 11:45 AM MICROELECTRONICS ENGINEER Office Visit [facility] [phone] Marvin Mckeon MD [facility] [address] [place], [place] [id number] 03/20/2024 11:30 AM MICROELECTRONICS ENGINEER Office Visit [facility] Family Medicine - [place] [address] [place] [phone] Abiodun Segura II, MD [address] [place], [place] [id number] documented as of this encounter Goals Goal Patient Goal Type Associated Problems Recent Progress Patient-Stated? Author Family - family caregiver with be involved in care transitions and discharge planning Lifestyle No Natty Cheek RN documented as of this encounter Visit Diagnoses Not on filedocumented in this encounter Additional Health Concerns Assessment Noted Time PHQ-9 Depression Total Score: 0 01/18/20 22 9:30 AM MICROELECTRONICS ENGINEER documented as of this encounter Care Teams Director Of Plant Operations Relationship Specialty Start Date End Date Abiodun Segura II, MD [address] [place] [address] PCP - General FAMILY PRACTICE 03/09/21 [place] [address] [place] [address] PODIATRY/SURGERY 05/05/22 documented as of this encounter
--- OUTSIDE RECORDS SUMMARY | 2024-03-02 22:24 | XMS_ITS | Encounter Summary ---
Author Organization [facility] Address [address] [place] [address]. [place] [address] [place] [address] Care Team Providers Care Mechanic Foreman Name Role Phone Colton SILVEIRA MD, Abiodun Rushing Primary Care Provider Victoriano Langston MD Unavailable [phone] Reason for Referral * Imaging (Emergency) - Closed Specialty Diagnoses / Procedures Referred By Lyla chaney Referred To Contact RADIOLOGY Procedures CT ABD+PEL W CON Hubert Sullivan MD [address] [address] Phone: tel: fax: Referral ID Status Reason Start Date Expiration Date Visits Re quested Visits Authorized [id number] Closed 09/24/2022 09/25/2023 1 1 Reason for Visit * Reason Comments Abdominal Pain Encounter Details Date Type Department Care Team (Late st Contact Info) Description 09/24/2022 5:19 AM CDT - 09/24/2022 9:23 AM CDT Emergency [facility] [place] [address] Hubert Sullivan MD [address] [address] Erica Keating MD [address] [place] [address] Abdominal Pain Discharge Disposition: Home or Self [...] Recorded Patient Health Questionnaire-2 Score 0 05/05/2022 [facility] Occupat ional Health - Occupational Stress [...] to sleep or slept in a senior living (including now)? No 09/03/2022 Comments No Sex and Gender Information Value Date Recorded Sex Assigned at Female 12/17/2021 2:07 AM CDT Legal Sex Female 2:58 PM CDT Gender Identity Female 12/17/2021 2:07 AM CDT Sexual Orientation Straight 12/17/2021 2: 07 AM CDT documented as of this encounter Last Filed Vital Signs Vital Sign Reading Time Taken Comments Blood Pressure 117/65 09/24/2022 9:00 AM CDT Pulse 99 09/24/2022 5:22 AM CDT Temperature 36.4 ??C (97.5 ??F) 09/24/2022 5:22 AM CD T Respiratory Rate 18 09/24/2022 9:00 AM CDT Oxygen Saturation 99% 09/24/2022 9:00 AM CDT Inhaled Oxygen Concentration - - Weight 88.6 kg (195 lb 5.2 oz) 09/24/2022 5:16 A M CDT Height 167.6 cm (5' 6 ) 09/24/2022 5:16 AM CDT Body Mass Index 31.53 09/24/2022 5:16 AM CDT documented in this encounter Functional Status * Are you deaf or do you have serious difficulty hearing Answer Date of Assessment Author Status No 09/03/2022 9:25 PM CDT Azeem Tom RN Active * Are you blind or do you have serious difficulty seeing, even when wearing glasses? Answer Date of Assessment Author Status Yes 09/03/2022 9:25 PM EMILEET Azeem Tom RN Active * Do you have serious difficulty walking or climbing stairs? Answer Date of Assessment Author Status Yes 09/03/2022 9:25 PM EMILEET Azeem Tom RN Active * Do you have difficulty dressing or bathing? Answer Date of Assessment Author Status Yes 09/03/2022 9:25 PM CDT Azeem Tom RN Active * Because of a physical, mental, or emotional condition, do you have difficulty doing errands alone such as visiting a doctor's office or shopping? Answer Date of Assessment Author Status Yes 09/03/2022 9:25 PM Azeem Knox RN Active documented as of this encounter Mental Status * Because of a physical, mental, or emotional condition, do you have serious difficulty concentrating, remembering, or making decisions? Answer Entry Date Author Status Yes 09/03/2022 9:25 PM EMILEET Azeem Tom RN Active documented in this encounter Discharge Instructions * Discharge Instructions* Erica Baer MD - 09/24/2022 8:51 AM CDT You had nausea, vomiting, abdominal pain. You will be sent home with prescriptions for compazine for nausea Please schedule a follow up appointment with your primary care physician within the next 1-3 days Please return to the Emergency Department for any new or worsening concern including new/worsening abdominal pain, blood in stools, inability to eat/drink. * Attachments The following attachments cannot be sent through Care Everywhere. * Abdominal pain (Grenadian) * Nausea and Vomiting Discharge Instructions, Adult (Grenadian) documented in this encounter Medications at Time of Discharge amLODIPine (NORVASC) 10 MG tabletIndications:H ypertension, unspecified type Take 1 tablet by mouth once daily 90 tablet 1 3 06/15/19 24 cyclobenzaprine (FLEXERIL) 10 MG tabletIndications:M uscle spasm Take 1 tablet (10 mg total) by mouth 3 (three) times daily as needed. 90 tablet 5 3 10/12/19 23 dulaglutide (TRULICITY) 4.5 MG/0.5ML injection (PEN)Indications:Di abetes Mellitus Inject 4.5 mg into the skin once a week. Indications: Diabetes 2 mL 5 3 11/12/19 23 HUMALOG MIX 75/25 (75-25) 100 UNIT/ML SuspensionIndicatio ns:Type 2 diabetes mellitus with retinopathy, with long-term current use of insulin, macular edema presence unspecified, unspecified laterality, unspecified retinopathy severity (CMS/HCC HHS/HCC) INJECT 60 UNITS SUBCUTANEOUSLY ONCE DAILY IN THE MORNING THEN 55 ONCE DAILY IN THE EVENING 40 mL 2 3 01/31/20 23 HYDROcodone-acetami nophen (NORCO) 5-325 MG tabletIndications:A cute Pain < 3 Day Supply Take 1 tablet by mouth every 6 (six) hours as needed for Pain. Indications: Acute Pain < 3 Day Supply 5 tablet 3 09/28/19 23 hydrocortisone (HYTONE) 2.5 % ointmentIndications :Skin Rash Apply 1 Application topically daily as needed. Indications: Rash Apply to face 2 10/12/19 hydrOXYzine (ATARAX) 25 MG tabletIndications:B urning Sensation and Itching (Inactive) Take 1-2 tablets (25-50 mg total) by mouth nightly at bedtime. Indications: Burning Feeling and Itching 2 10/12/19 23 lisinopril (PRINIVIL) 20 MG tabletIndications:h ypertension Take 1 tablet (20 mg total) by mouth every evening. Indications: hypertension 30 tablet 03 3 06/15/19 24 omeprazole 40 MG capsuleIndications: Esophagitis due to doxycycline Take 1 capsule (40 mg total) by mouth in the morning. 30 capsule 1 2 10/12/19 23 ondansetron 4 MG disintegrating tabletIndications:N ausea Take 1 tablet (4 mg total) by mouth every 8 (eight) hours as needed for Nausea. 20 tablet 2 10/12/19 23 oxyCODONE immediate release (ROXICODONE) 10 MG immediate release tabletIndications:A cute Pain < 7 Day Supply Take 1 tablet (10 mg total) by mouth every 6 (six) hours as needed. Indications: Acute Pain < 7 Day Supply 10 tablet 3 10/12/19 23 prochlorperazine (COMPAZINE) 10 MG tablet Take 1 tablet (10 mg total) by mouth every 6 (six) hours as needed. 30 tablet 3 10/03/19 23 simvastatin (ZOCOR) 40 MG tabletIndications:H ypercholesteremia [The details of the medication are not available because there are pending changes by a home health clinician.] 90 tablet 3 2 06/15/19 24 venlafaxine XR (EFFEXOR-XR) 37.5 MG 24 hr capsuleIndications: Hot flashes due to menopause Take 1 capsule (37.5 mg total) by mouth daily. 90 capsule 3 3 03/05/19 24 documented as of this encounter ED Notes * Dixie Zaldivar RN - 09/24/2022 9:13 AM CDT Pt. Ambulatory on discharge. All discharge and follow up instructions discussed with patient. Patient indicates understanding. * Erica Baer MD - 09/24/2022 6:29 AM CDT Emergency Department Assumed Care Note Patient signed out to me by Dr. Sullivan @ 0700 shift change. Briefly, Lena Youngblood is a 52-year-old female is being evaluated for abdominal pain. She was admitted to the hospital about 1 week ago for a foot infection she has not been on antibiotics since that time. She came in for epigastric pain today. Vitals: 09/24/22 0800 BP: 116/68 Pulse: Resp: Temp: SpO2: 100% Thus far, studies reveal: CBC, CMP, lipase, troponin unremarkable. Wbc 9.9, improved from prior. Reviewed EKG, no ischemic changes Pending studies include: pending CT scan Plan from sign out is: pending CT scan to determine dispo Progress notes: patient resting, in no distress at this time [address] results, updated patient on all findings. Examined her right foot and her distal toes do not appear to be actively infected. She is not currently on antibiotics. She still having somenausea and epigastric pain. We will treat with pain and nausea medications. No chest pain. No othercomplaints this time. She is vitally stable. She followed up with her lint cleaner who took stitches out of her toes she says recently Results for orders placed or performed during the hospital encounter of 09/24/22 ECG [address] [facility] [address] Test Date: 2022-09-24 Pat Name: LENA YOUNGBLOOD Department: 41 Room: [place] [address] Gender: Female Epic Willow Analyst: [id number] : 1970 Requested By: HUBERT SULLIVAN Order Number: [id number] Reading MD: Measurements Intervals [place] Rate: 95 P: 138 NM: 168 QRS: 170 QRSD: 81 T: 104 QT: 341 QTc: 429 Interpretive Statements SINUS RHYTHM ARM LEADS REVERSED [INVERTED P AND QRS IN I] Compared to ECG 09/05/2022 06:59:16 T-wave abnormality no longer present Labs Reviewed COMPREHENSIVE METABOLIC PANEL - Abnormal; Notable for the following components: Result Value GLUCOSE 171 (*) CREATININE S/P/B 1.07 (*) CALCIUM S/P/B 10.2 (*) TOTAL PROTEIN S/P/B 9.3 (*) ALKALINE PHOSPHATASE S/P/B 153 (*) A/G RATIO 0.7 (*) GFR ESTIMATE 63 (*) All other components within normal limits CBC W/DIFF AUTOMATED LIPASE TROPONIN, QUANT URINALYSIS CT ABD+PEL W CON Final Result by User, [id number] (09/25 815) Exam: CT Abdomen and Pelvis with contrast Exam Date/Time: 09/24/2022 7:43 AM Indication: 82 female. Complaint of progressive mid and lower abdominal severe pain. Abdominal pain, acute, nonlocalized Comparison: CT abdomen pelvis 10/29/2021; 04/15/2021 Technique: Computed tomography of the abdomen and pelvis performed with intravenous administration of 100 mL Isovue-370. A dose lowering technique was used for this procedure, which may include, but is not limited to, dose reduction technique, automated exposure control, the use of iterative reconstruction, and ALARA (As Low As Reasonably Achievable) / Image Gently techniques. Findings: LOWER CHEST Borderline cardiac size. No pericardial or pleural effusion. Subtle mosaic attenuation of the lung bases may represent air trapping. UPPER ABDOMEN Liver and bile ducts: Mild hepatomegaly. Normal morphology. Focal fat infiltration in segment 4 adjacent to the intersegmental fissure. No concerning focal lesion. No intra or extrahepatic biliary dilatation. Hepatic and portal venous systems are patent. Gallbladder: Present. Unremarkable. No calcific cholelithiasis, gallbladder wall thickening or pericholecystic fluid. Pancreas: Normal. Spleen: Multiple granulomatous calcifications.. RETROPERITONEUM Adrenals: Normal. Kidneys: Stable appearance. Right kidney remains mildly enlarged with the moderately severe diffuse articular central dilatation with the parenchymal cortical thinning. Mild dilatation right renal pelvis with subtle urothelial thickening. Findings are chronic, stable compared to prior studies and may relate to a UPJ obstruction. The stable left renal surgery nonobstructing 3 mm stone. No focal lesions in either side. Elective system obstruction. No perinephric stranding or findings of pyelonephritis in either side. Lymph nodes: There are a few prominent rounded lymph nodes in the right lower quadrant mesentery. The largest index node measures 9 mm in short axis. Findings could represent a mesenteric adenitis. No central mesenteric, retroperitoneal or pelvic adenopathy. BOWEL AND PERITONEUM Bowel: Small sliding hiatal hernia Normal in caliber and wall thickness. Stable chronic minimally dilated retrocecal appendix measuring up to 9 mm in diameter but without periappendiceal stranding suggesting acute appendicitis. Free air or fluid: None. VASCULATURE Minimal atherosclerosis. No abdominal aortic aneurysm. Visceral arteries are patent.. PELVIS Uterus is surgically absent. No pelvic, adnexal mass BONES/SOFT TISSUES Normal bone density. No concerning musculoskeletal finding. Impression: 1. Grossly stable study compared to 10/29/2021; no acute other localizing abdominopelvic process, findings seen to provide a potential etiology for the patient's symptoms. 2. Chronic mildly enlarged right kidney with markedly dilated calyces as well as of the right renal pelvis; findings could represent chronic UPJ obstruction. Accompanying right renal diffuse parenchymal, cortical thinning. 3. Left renal 3 mm solitary nonobstructing stone. 4. Chronic mildly thickened retrocecal appendix measuring 9 mm but without periappendiceal stranding suggesting acute appendicitis. 5. 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 to the report body for additional details regarding other nonacute, incidental and chronic stable findings. Referred By: Interpreted By: Liseth Diaz MD, 09/24/2022 8:03 AM Medical Decision Making ED Course as of 09/24/22 0915 Sun Sep 24, 2022 0712 TROPONIN I HIGH SENSITIVITY: 5 [JAVON] 0712 CREATININE S/P/B(!): 1.07 [JAVON] 0712 AST: 20 [JAVON] 0712 ALT: 41 [JAVON] 0712 LIPASE: 49 [JAVON] 0727 TROPONIN I HIGH SENSITIVITY: 5 [JAVON] 0727 LIPASE: 49 [JAVON] 0727 CREATININE S/P/B(!): 1.07 [JAVON] 0728 AST: 20 [JAVON] 0728 ALT: 41 [JAVON] 0817 Ct - 1. Grossly stable study compared to 10/29/2021; no acute other localizing abdominopelvic process, findings seen to provide a potential etiology for the patient's symptoms. 2. Chronic mildly enlarged right kidney with markedly dilated calyces as well as of the right renalpelvis; findings could represent chronic UPJ obstruction. Accompanying right renal diffuse parenchymal, cortical thinning. 3. Left renal 3 mm solitary nonobstructing stone. 4. Chronic mildly thickened retrocecal appendix measuring 9 mm but without periappendiceal stranding suggesting acute appendicitis. 5. 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 to the report body for additional details regarding other nonacute, incidental and chronic stable finding Reviewed ct findings, no acute process [JAVON] 0876 Updated patient on results answered all questions. Discussed CT findings with chronic findings, no acute finding for her abdominal pain today. CBC and CMP unremarkable and lipase normal. EKG andtroponin with no ischemia. Urinalysis with no infection. Vital signs stable, afebrile. She is feeling better than on arrival. She has Zofran and omeprazole at home. Discussed she could keep taking this. We will try Compazine to see if that helps with her nausea at home. Recommended she follow-up with her primary care provider and discussed strict return precautions. Answered all questions. She feels safe going home. [JAVON] 0915 Tolerated PO intake [JAVON] ED Course User Index [JAVON] Erica Baer MD Medications ondansetron (ZOFRAN) injection 4 mg (4 mg Intravenous Given 09/24/22 0540) morphine injection 4 mg (4 mg Intravenous Given 09/24/22 0541) sodium chloride 0.9% bolus infusion 500 mL (0 mLs Intravenous Infusion Stop Time 09/24/22 0556) iopamidol (ISOVUE-370) 76 % injection 100 mL (100 mLs Intravenous Given 09/24/22 0753) ondansetron (ZOFRAN) injection 4 mg (4 mg Intravenous Given 09/24/22 0819) morphine injection 4 mg (4 mg Intravenous Given 09/24/22 08) New Prescriptions PROCHLORPERAZINE (COMPAZINE) 10 MG TABLET Take 1 tablet (10 mg total) by mouth every 6 (six) hours as needed. Clinical impression: SNOMED CT(R) 1. Abdominal pain ABDOMINAL PAIN 2. Nausea & vomiting NAUSEA AND VOMITING Disposition: Discharge ERICA BAER MD 09/24/2022 Erica Baer MD 09/24/22 0853 * Hubert Sullivan MD - 09/24/2022 5:52 AM CDT Emergency Department Note Chief Complaint Chief Complaint Patient presents with Abdominal Pain History of Present Illness The patient is a 52-year-old female who presents with upper abdominal pain. She reports pain has been going on for 3 days. She reports associated nausea and vomiting. She reports associated chills. No fevers. No chest pain. No shortness of breath. She denies any urinary complaints. She denies any diarrhea or constipation. Patient was recently in the hospital for a foot infection. Hx obtained by patient Medical History MEDICATIONS: Prior to Admission medications Medication Sig Start Date End Date Taking? Authorizing Provider amLODIPine (NORVASC) 10 MG tablet Take 1 tablet by mouth once daily Patient taking differently: Take 1 tablet (10 mg total) by mouth nightly at bedtime. 08/07/22 Abiodun Segura II, MD cyclobenzaprine (FLEXERIL) 10 MG tablet Take 1 tablet (10 mg total) by mouth 3 (three) times daily as needed. 03/15/22 Abiodun Segura II, MD dulaglutide (TRULICITY) 4.5 [...] THE EVENING 08/17/22 Abiodun Segura II, MD hydrocortisone (HYTONE) 2.5 % ointment Apply 1 Application topically daily as needed. Indications: Rash Apply to face 10/28/21 Default History Genericprovider hydrOXYzine (ATARAX) 25 MG tablet Take 1-2 tablets (25-50 mg total) by mouth nightly at bedtime. Indications: Burning Feeling and Itching 10/28/21 Default History Genericprovider lisinopril (PRINIVIL) 20 MG tablet Take 1 tablet (20 mg total) by mouth every evening. Indications:hypertension 09/09/22 09/09/23 Sofy Acevedo MD omeprazole 40 MG capsule Take 1 capsule (40 mg total) by mouth in the morning. 07/14/21 Abiodun Segura II, MD ondansetron 4 MG disintegrating tablet Take 1 tablet (4 mg total) by mouth every 8 (eight) hours asneeded for Nausea. 07/11/21 Mendy Mirza MD oxyCODONE immediate release (ROXICODONE) 10 MG immediate release tablet Take 1 tablet (10 mg total)by mouth every 6 (six) hours as needed. Indications: Acute Pain < 7 Day Supply 09/09/22 Arelis Bermeo MD simvastatin (ZOCOR) 40 MG tablet TAKE 1 TABLET BY MOUTH AT BEDTIME Patient taking differently: Take 1 tablet (40 mg total) by mouth nightly at bedtime. 10/04/21 Abiodun Segura II, MD venlafaxine XR (EFFEXOR-XR) 37.5 MG 24 hr capsule Take 1 capsule (37.5 mg total) by mouth daily. 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 All systems negative except as marked. Physical Exam Vital 24 Hour Range Most Recent Value Temperature Temp Min: 97.5 ??F (36.4 ??C) Max: 97.5 ??F (36.4 ??C) 97.5 ??F (36.4 ??C) Pulse Pulse Min: 99 Max: 99 99 Respiratory Resp Min: 18 Max: 18 18 Blood Pressure BP Min: 137/98 Max: 137/98 (!) 137/98 Pulse Oximetry SpO2 Min: 100 % Max: 100 % 100 % O2 No data recorded Vital Most Recent Value First Value Weight 88.6 kg (195 lb 5.2 oz) Weight: 88.6 kg (195 lb 5.2 oz) Height 5' 6 (167.6 cm) Height: 5' 6 (167.6 cm) BMI (!) 31.54 N/A Constitutional: Well developed, Well nourished, No acute distress, Non-toxic appearance. HEENT: Normocephalic, Atraumatic, Bilateral external ears normal, EOMI, Conjunctiva normal, No discharge.Oropharynx moist, Nose normal. Respiratory: Normal breath sounds, No respiratory distress. Cardiovascular: Normal heart rate, Normal rhythm GI: Soft, mild upper abdominal tenderness. No rebound, no guarding. Neck: Normal range of motion, No tenderness, Supple, No stridor. Back: No tenderness Extremities: Intact distal pulses, No edema, No tenderness, Good range of motion in all major joints. Skin: Warm, Dry, No erythema, No rash. Neurologic: Alert & oriented x 3, Normal motor function, Normal sensory function, No focal deficits noted. Psychiatric: Affect normal, Judgment normal, Mood normal. Medical Decision Making/ ED course: Problem list: Abdominal pain Differentials: Gastritis, peptic ulcer disease, pancreatitis, constipation, obstruction, other Considered chronic illnesses (see PMH), comorbidities, social determinants of health, access to follow-up, and medical literacy when determining work up and disposition. Data/records reviewed: Labs: Results for orders placed or performed during the hospital encounter of 09/24/22 CBC W/DIFF AUTOMATED Result Value Ref Range WBC 9.9 4.5 - 11.0 x10'3/uL RBC 4.30 4.20 - 5.40 x10'6/uL HGB 12.7 12.0 - 16.0 G/DL HCT 38.3 38.0 - 48.0 % MCV 89.1 81.0 - 99.0 FL MCH 29.5 27.0 - 31.0 PG MCHC 33.2 32.0 - 36.0 G/DL RDW 13.0 11.5 - 14.5 % PLT 256 130 - 400 x10'3/uL MPV 11.5 9.3 - 12.2 FL DIFFERENTIAL TYPE AUTOMATED DIFFERENTIAL NEUTROPHILS 58.4 % LYMPHOCYTES 35.4 % MONOCYTES 4.4 % EOSINOPHILS 1.0 % BASOPHILS 0.6 % IMMATURE GRANS 0.2 % ABS. NEUTROPHILS TOTAL 5.75 1.80 - 7.70 x10'3/uL ABS. LYMPHOCYTES 3.49 1.00 - 4.80 x10'3/uL ABS. MONOCYTES 0.43 0.24 - 0.86 x10'3/uL ABS. EOSINOPHILS 0.10 0.04 - 0.36 x10'3/uL ABS. BASOPHILS 0.06 0.01 - 0.08 x10'3/uL ABS. IMMATURE GRANULOCYTES 0.02 0.00 - 0.49 x10'3/uL Imaging: My independent interpretation of labs/imaging: Normal white count. Normal hemoglobin Cardiac Rhythm strip ordered and independently interpretated as: Sinus rhythm. Rate of 95. Normal NM interval, normal QTc. My independent interpretation of EKG:No signs of acute ischemia. My independent interpretation of pulse ox: Normal Consults: no emergent consult indicated Communication: Anticipate signout to day team pending imaging. Medications sodium chloride 0.9% bolus infusion 500 mL (500 mLs Intravenous New Bag 09/24/22 0541) ondansetron (ZOFRAN) injection 4 mg (4 mg Intravenous Given 09/24/22 0540) morphine injection 4 mg (4 mg Intravenous Given 09/24/22 0541) HUBERT SULLIVAN MD 09/24/2022 Please excuse any grammatical or spelling errors as this chart was likely documented using a dictation software. Hubert Sullivan MD 09/24/22 0554 * Carolina Mendosa RN-LP - 09/24/2022 5:23 AM CDT Patient presents to ED via POV with complaints of mid-lower stomach pain. States her doctor changedsome of her medications on and the pain has been getting worse since then, rates pain 10/10 during triage. documented in this encounter Plan of Treatment Upcoming Encounters Date Type Department Care Team (Late st Contact Info) Description 03/14/2024 11:45 AM BOG WORKER Office Visit [facility] [phone] Marvin Mckeon MD [address] [facility] [address] [place], [place] [address] 03/20/2024 11:30 AM BOG WORKER Office Visit [facility] - [place] [address] [place] [phone] Abiodun Segura II, MD [address] [place], [place] [id number] documented as of this encounter Goals Goal Patient Goal Type Associated Problems Recent Progress Patient-Stated? Author Family - family caregiver with be involved in care transitions and discharge planning Lifestyle No Natty Cheek, RN documented as of this encounter Procedures Procedure Name Priority Date/Time Associated Diagnosis Comments HC URINALYSIS AUTO W/O MICRO STAT 09/24/2022 8:[address] ABD+PEL W CON STAT 09/24/2022 7:52 AM CDT ECG 12-LEAD STAT 09/24/2022 5:42 AM CDT COMPREHENSIVE METABOLIC PANEL STAT 09/24/2022 5:35 AM CDT CBC W/DIFF AUTOMATED STAT 09/24/2022 5:35 AM CDT TROPONIN, QUANT STAT 09/24/2022 5:35 AM CDT LIPASE STAT 09/24/2022 5:35 AM CDT documented in this encounter Results * URINALYSIS (09/24/2022 8:35 AM CDT) SPECIMEN TYPE URINE CLEAN CATCH 09/24/2022 8:35 AM CDT [facility] COLOR (U) LIGHT YELLOW 09/24/2022 8:43 AM CDT [facility] TRANSPARENCY CLEAR 09/24/2022 8:43 AM CDT [facility] SPECIFIC GRAVITY (U) 1.022 1.001 - 1.030 09/24/2022 8:43 AM CDT [facility] U PH 7.0 5.0 - 9.0 09/24/2022 8:43 AM CDT [facility] LEUKOCYTES (U) NEGATIVE NEGATIVE 09/24/2022 8:43 AM CDT [facility] NITRITES NEGATIVE NEGATIVE 09/24/2022 8:43 AM CDT [facility] PROTEIN RANDOM (U) 20 <30 MG/DL 09/24/2022 8:43 AM CDT [facility] GLUCOSE (U) NORMAL NORMAL MG/DL 09/24/2022 8:43 AM CDT [facility] KETONES MG/DL (U) NEGATIVE NEGATIVE MG/DL 09/24/2022 8:43 AM CDT [facility] UROBILINOGEN NORMAL NORMAL MG/DL 09/24/2022 8:43 AM CDT [facility] BILIRUBIN (U) NEGATIVE NEGATIVE MG/DL 09/24/2022 8:43 AM CDT [facility] BLOOD (U) NEGATIVE NEGATIVE 09/24/2022 8:43 AM CDT [facility] CULTURE & SENSITIVITY INDICATED? CULTURE IS NOT INDICATED 09/24/2022 8:43 AM CDT [facility] URINE SPECIMEN OBTAINED BY CLEAN CATCH PROCEDURE / Unknown 09/24/2022 8:35 AM CDT us Erica Keating MD URINE ORDERABLES Final Resul t [facility] [address] [place] [address], [place] [phone] * CT ABD+PEL W CON (09/24/2022 7:52 AM CDT) Anatomical Region Laterality Modality Abdomen Computed Tomogra phy 09/24/2022 8:03 AM CDT Impressions 09/24/2022 8:15 AM CDT Impression: 1. ??Grossly stable study compared to 10/29/2021; no acute other localizing abdominopelvic process, findings seen to provide a potential etiology for the patient's symptoms. 2. ??Chronic mildly enlarged right kidney with markedly dilated calyces as well as of the right renal pelvis; findings could represent chronic UPJ obstruction. ??Accompanying right renal diffuse parenchymal, cortical thinning. 3. ??Left renal 3 mm solitary nonobstructing stone. 4. ??Chronic mildly thickened retrocecal appendix measuring 9 mm but without periappendiceal stranding suggesting acute appendicitis. 5. ??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 to the report body for additional details regarding other nonacute, incidental and chronic stable findings. Referred By: ?? Interpreted By: Liseth Diaz MD, 09/24/2022 8:03 AM Narrative 09/24/2022 8:15 AM CDT Exam: CT Abdomen and Pelvis with contrast Exam Date/Time: 09/24/2022 7:43 AM Indication: 82 female. ??Complaint of progressive mid and lower abdominal severe pain. ??Abdominal pain, acute, nonlocalized ?? Comparison: CT abdomen pelvis 10/29/2021; 04/15/2021 Technique: Computed tomography of the abdomen and pelvis performed with intravenous administration of 100 mL Isovue-370. A dose lowering technique was used for this procedure, which may include, but is not limited to, dose reduction technique, automated exposure control, the use of iterative reconstruction, and ALARA (As Low As Reasonably Achievable) / Image Gently techniques. Findings: LOWER CHEST Borderline cardiac size. ??No pericardial or pleural effusion. ??Subtle mosaic attenuation of the lung bases may represent air trapping. UPPER ABDOMEN Liver and bile ducts: Mild hepatomegaly. ??Normal morphology. ??Focal fat infiltration in segment 4 adjacent to the intersegmental fissure. ??No concerning focal lesion. ??No intra or extrahepatic biliary dilatation. ??Hepatic and portal venous systems are patent. Gallbladder: Present. ??Unremarkable. ??No calcific cholelithiasis, gallbladder wall thickening or pericholecystic fluid. Pancreas: Normal. Spleen: Multiple granulomatous calcifications.. RETROPERITONEUM Adrenals: Normal. Kidneys: Stable appearance. ??Right kidney remains mildly enlarged with the moderately severe diffuse articular central dilatation with the parenchymal cortical thinning. ??Mild dilatation right renal pelvis with subtle urothelial thickening. ??Findings are chronic, stable compared to prior studies and may relate to a UPJ obstruction. The stable left renal surgery nonobstructing 3 mm stone. ??No focal lesions in either side. ??Elective system obstruction. No perinephric stranding or findings of pyelonephritis in either side. Lymph nodes: There are a few prominent rounded lymph nodes in the right lower quadrant mesentery. ??The largest index node measures 9 mm in short axis. ??Findings could represent a mesenteric adenitis. ??No central mesenteric, retroperitoneal or pelvic adenopathy. BOWEL AND PERITONEUM Bowel: Small sliding hiatal hernia Normal in caliber and wall thickness. ??Stable chronic minimally dilated retrocecal appendix measuring up to 9 mm in diameter but without periappendiceal stranding suggesting acute appendicitis. Free air or fluid: None. VASCULATURE Minimal atherosclerosis. ??No abdominal aortic aneurysm. ??Visceral arteries are patent.. PELVIS Uterus is surgically absent. ??No pelvic, adnexal mass BONES/SOFT TISSUES Normal bone density. ??No concerning musculoskeletal finding. Procedure Note Liseth Diaz MD - 09/24/2022 Exam: CT Abdomen and Pelvis with contrast Exam Date/Time: 09/24/2022 7:43 AM Indication: 82 female. Complaint of progressive mid and lower abdominalsevere pain. Abdominal pain, acute, nonlocalized Comparison: CT abdomen pelvis 10/29/2021; 04/15/2021 Technique: Computed tomography of the abdomen and pelvis performed withintravenous administration of 100 mL Isovue-370. A dose lowering techniquewas used for this procedure, which may include, but is not limited to,dose reduction technique, automated exposure control, the use of iterativereconstruction, and ALARA (As Low As Reasonably Achievable) / Image Gentlytechniques. Findings: LOWER CHEST Borderline cardiac size. No pericardial or pleural effusion. Subtlemosaic attenuation of the lung bases may represent air trapping. UPPER ABDOMEN Liver and bile ducts: Mild hepatomegaly. Normal morphology. Focal fatinfiltration in segment 4 adjacent to the intersegmental fissure. Noconcerning focal lesion. No intra or extrahepatic biliary dilatation.Hepatic and portal venous systems are patent. Gallbladder: Present. Unremarkable. No calcific cholelithiasis,gallbladder wall thickening or pericholecystic fluid. Pancreas: Normal. Spleen: Multiple granulomatous calcifications.. RETROPERITONEUM Adrenals: Normal. Kidneys: Stable appearance. Right kidney remains mildly enlarged with themoderately severe diffuse articular central dilatation with theparenchymal cortical thinning. Mild dilatation right renal pelvis withsubtle urothelial thickening. Findings are chronic, stable compared toprior studies and may relate to a UPJ obstruction. The stable left renal surgery nonobstructing 3 mm stone. No focal lesionsin either side. Elective system obstruction. No perinephric stranding or findings of pyelonephritis in either side. Lymph nodes: There are a few prominent rounded lymph nodes in the rightlower quadrant mesentery. The largest index node measures 9 mm in shortaxis. Findings could represent a mesenteric adenitis. No centralmesenteric, retroperitoneal or pelvic adenopathy. BOWEL AND PERITONEUM Bowel: Small sliding hiatal hernia Normal in caliber and wall thickness.Stable chronic minimally dilated retrocecal appendix measuring up to 9 mmin diameter but without periappendiceal stranding suggesting acuteappendicitis. Free air or fluid: None. VASCULATURE Minimal atherosclerosis. No abdominal aortic aneurysm. Visceral arteriesare patent.. PELVIS Uterus is surgically absent. No pelvic, adnexal mass BONES/SOFT TISSUES Normal bone density. No concerning musculoskeletal finding. Impression: 1. Grossly stable study compared to 10/29/2021; no acute other localizingabdominopelvic process, findings seen to provide a potential etiology forthe patient's symptoms. 2. Chronic mildly enlarged right kidney with markedly dilated calyces aswell as of the right renal pelvis; findings could represent chronic UPJobstruction. Accompanying right renal diffuse parenchymal, corticalthinning. 3. Left renal 3 mm solitary nonobstructing stone. 4. Chronic mildly thickened retrocecal appendix measuring 9 mm butwithout periappendiceal stranding suggesting acute appendicitis. 5. 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 to the report body for additional details regarding othernonacute, incidental and chronic stable findings. Referred By: Interpreted By: Liseth Diaz MD, 09/24/2022 8:03 AM us Hubert Sullivan MD CT Final Result * ECG 12 lead (09/24/2022 5:42 AM CDT) 09/24/2022 5:42 AM CDT Narrative [facility] RAD - 09/24/2022 6:59 PM CDT ?[facility] ? [address] [place], [place] ? Test Date: ?2022-09-24 Pat Name: ? LENA YOUNGBLOOD ?Department: ?? 41 ? Room: ? [id number] Gender: ? Female ? Epic Willow Analyst: ?? [id number] : ?1970 ? Requested By: HUBERT ARMSTRONGGLENNA Order Number: [id number] ? Reading MD: ?? Brianna Dave ? Measurements Intervals ?[place] ? Rate: ? 95 ? P: ?138 NM: ? 168 ?QRS: ?170 QRSD: ? 81 ? T: ?104 QT: ? 341 ? QTc: ?429 ? Interpretive Statements SINUS RHYTHM ARM LEADS REVERSED ??[INVERTED P AND QRS IN I] Compared to ECG 09/05/2022 06:59:16 T-wave abnormality no longer present Procedure Note Brianna Acosta MD - 09/24/[address] [facility] Test Date: 2022-09-24 Pat Name: LENA YOUNGBLOOD Department: 41 Room: [place] [address] Gender: Female Epic Willow Analyst: [id number] : 1970 Requested By: HUBERT SULLIVAN Order Number: [id number] Reading MD: Brianna Acosta Measurements Intervals [place] Rate: 95 P: 138 NM: 168 QRS: 170 QRSD: 81 T: 104 QT: 341 QTc: 429 Interpretive Statements SINUS RHYTHM ARM LEADS REVERSED [INVERTED P AND QRS IN I] Compared to ECG 09/05/2022 06:59:16 T-wave abnormality no longer present us Hubert Sullivan MD ECG ORDERABLES Final Result [facility] RAD * TROPONIN, QUANT (09/24/2022 5:35 AM CDT) [facility] TROPONIN I HIGH SENSITIVITY 5 <54 ng/L 09/24/2022 6:18 AM CDT [facility] Comment: HIGH DOSES OF BIOTIN, TROPONIN-SPECIFIC AUTOANTIBODIES, AND ANTIBODY THERAPY CONTAINING HAMA MAY INTERFERE WITH THIS TEST RESULT. CORRELATION TO CLINICAL HISTORY AND PRESENTATION RECOMMENDED. 09/24/2022 5:35 AM CDT us Hubert Sullivan MD LABORATORY Final Result [facility] [address] [place] [address], * LIPASE (09/24/2022 5:35 AM CDT) [facility] LIPASE 49 13 - 75 UNITS/L 09/24/2022 6:18 AM CDT [facility] 09/24/2022 5:35 AM CDT Hubert Sullivan MD LABORATORY Final Result Performing Organization Address City/[facility]/ZIP Co de Phone Number [facility] [address] [place] [address], [place] [phone] * (ABNORMAL) COMPREHENSIVE METABOLIC PANEL (09/24/2022 5:35 AM CDT) [facility] GLUCOSE 171(H) 70 - 99 MG/DL 09/24/2022 6:18 AM CDT [facility] BUN 18 7 - 18 MG/DL 09/24/2022 6:18 AM CDT [facility] CREATININE S/P/B 1.07(H) 0.55 - 1.02 MG/DL 09/24/2022 6:18 AM CDT [facility] SODIUM S/P/B 136 136 - 145 MMOL/L 09/24/2022 6:18 AM CDT [facility] POTASSIUM S/P/B 4.1 3.5 - 5.1 MMOL/L 09/24/2022 6:18 AM CDT [facility] CHLORIDE S/P/B 102 100 - 108 MMOL/L 09/24/2022 6:18 AM CDT [facility] CO2 28.0 21 - 32 MMOL/L 09/24/2022 6:18 AM CDT [facility] CALCIUM S/P/B 10.2(H) 8.5 - 10.1 MG/DL 09/24/2022 6:18 AM CDT [facility] BILIRUBIN TOTAL S/P/B 0.6 0.2 - 1.2 MG/DL 09/24/2022 6:18 AM CDT [facility] Comment: THIS ASSAY IS NOT RECOMMENDED FOR PATIENTS UNDERGOING TREATMENT WITH ELTROMBOPAG DUE TO THE POTENTIAL FOR FALSELY ELEVATED RESULTS. TOTAL PROTEIN S/P/B 9.3(H) 6.4 - 8.2 G/DL 09/24/2022 6:18 AM CDT [facility] ALBUMIN S/P/B 3.8 3.4 - 5.0 G/DL 09/24/2022 6:18 AM CDT [facility] AST 20 15 - 37 U/L 09/24/2022 6:18 AM CDT [facility] ALT 41 14 - 55 U/L 09/24/2022 6:18 AM CDT [facility] ALKALINE PHOSPHATASE S/P/B 153(H) 50 - 136 U/L 09/24/2022 6:18 AM CDT [facility] ANION GAP 6.0 5 - 15 MMOL/L 09/24/2022 6:18 AM CDT [facility] BUN CREATININE RATIO 16.8 6 - 26 09/24/2022 6:18 AM CDT [facility] A/G RATIO 0.7(L) 1.0 - 2.0 RATIO 09/24/2022 6:18 AM CDT [facility] GFR ESTIMATE 63(L) >90 ML/MIN/1.7 3 M2 09/24/2022 6:18 AM CDT [facility] Comment: NOTE: eGFR is not calculated for patients <18 years of age. This is an estimated GFR calculation using the new CKD EPI creatinine equation without race and so does not require a correction factor for race. This estimated GFR should not be used for calculating drug doses. 09/24/2022 5:35 AM CDT us Hubert Sullivan MD LABORATORY Final Result [facility] [address] [place] [address], * CBC W/DIFF AUTOMATED (09/24/2022 5:35 AM CDT) WBC 9.9 4.5 - 11.0 x10'3/uL 09/24/2022 5:51 AM CDT [facility] RBC 4.30 4.20 - 5.40 x10'6/uL 09/24/2022 5:51 AM CDT [facility] HGB 12.7 12.0 - 16.0 G/DL 09/24/2022 5:51 AM CDT [facility] HCT 38.3 38.0 - 48.0 % 09/24/2022 5:51 AM CDT [facility] MCV 89.1 81.0 - 99.0 FL 09/24/2022 5:51 AM CDT [facility] MCH 29.5 27.0 - 31.0 PG 09/24/2022 5:51 AM CDT [facility] MCHC 33.2 32.0 - 36.0 G/DL 09/24/2022 5:51 AM CDT [facility] RDW 13.0 11.5 - 14.5 % 09/24/2022 5:51 AM CDT [facility] PLT 256 130 - 400 x10'3/uL 09/24/2022 5:51 AM CDT [facility] MPV 11.5 9.3 - 12.2 FL 09/24/2022 5:51 AM CDT [facility] DIFFERENTIAL TYPE AUTOMATED DIFFERENTIAL 09/24/2022 5:51 AM CDT [facility] NEUTROPHILS % 58.4 % 09/24/2022 5:51 AM CDT [facility] LYMPHOCYTES % 35.4 % 09/24/2022 5:51 AM CDT [facility] MONOCYTES % 4.4 % 09/24/2022 5:51 AM CDT [facility] EOSINOPHILS 1.0 % 09/24/2022 5:51 AM CDT [facility] BASOPHILS 0.6 % 09/24/2022 5:51 AM CDT [facility] IMMATURE GRANS % 0.2 % 09/25/19 5:51 AM CDT [facility] ABS. NEUTROPHILS TOTAL 5.75 1.80 - 7.70 x10'3/uL 09/24/2022 5:51 AM CDT [facility] ABS. LYMPHOCYTES 3.49 1.00 - 4.80 x10'3/uL 09/24/2022 5:51 AM CDT [facility] ABS. MONOCYTES 0.43 0.24 - 0.86 x10'3/uL 09/24/2022 5:51 AM CDT [facility] ABS. EOSINOPHILS 0.10 0.04 - 0.36 x10'3/uL 09/24/2022 5:51 AM CDT [facility] ABS. BASOPHILS 0.06 0.01 - 0.08 x10'3/uL 09/24/2022 5:51 AM CDT [facility] ABS. IMMATURE GRANULOCYTES 0.02 0.00 - 0.49 x10'3/uL 09/24/2022 5:51 AM CDT [facility] 09/24/2022 5:35 AM CDT us Hubert Sullivan MD LABORATORY Final Result [facility] [address] [place] [address], [place] [phone] documented in this encounter Visit Diagnoses Diagnosis Abdominal pain- Primary Abdominal pain, unspecified site Nausea & vomiting Nausea with vomiting documented in this encounter Administered Medications Inactive Administered Medications - up to 3 most recent administrations Medication Order MAR Action Action Date Dose Rate Site iopamidol (ISOVUE-370) 76 % injection 100 mL 100 mL, Intravenous, IMG once as needed, Contrast, 1 dose, Starting on 09/24/22 at 0753, Until 09/24/22 at 0753 Given 09/24/2022 7:53 AM CDT 100 mLs Left Arm morphine injection 4 mg 4 mg, Intravenous, Once, 1 dose, On 09/24/22 at 0545 Given 09/24/2022 5:41 AM CDT 4 mg morphine injection 4 mg 4 mg, Intravenous, Once, 1 dose, On 09/24/22 at 0815 Given 09/24/2022 8:19 AM CDT 4 mg ondansetron (ZOFRAN) injection 4 mg 4 mg, Intravenous, Once, 1 dose, On 09/24/22 at 0545, IV push over 2-5 minutes. Given 09/24/2022 5:40 AM CDT 4 mg ondansetron (ZOFRAN) injection 4 mg 4 mg, Intravenous, Once, 1 dose, On 09/24/22 at 0815, IV push over 2-5 minutes. Given 09/24/2022 8:19 AM CDT 4 mg sodium chloride 0.9% bolus infusion 500 mL 500 mL, Intravenous, Administer over 15 Minutes, Bolus (Once), 1 dose, On 09/24/22 at 0545 New Bag 09/24/2022 5:41 AM CDT 500 mLs documented in this encounter Active and Recently Administered Medications Times are shown in CDT. Scheduled Medication Order 09/22/2022 09/23/2022 09/24/2022 morphine injection 4 mg (COMPLETED) 4 mg, Intravenous, Once, 1 dose, On 09/24/22 at 0545 0541 (Given - Provid er: Cassandra Eng RN) morphine injection 4 mg (COMPLETED) 4 mg, Intravenous, Once, 1 dose, On 09/24/22 at 0815 0819 (Given - Provid er: Dixie Zaldivar RN) ondansetron (ZOFRAN) injection 4 mg (COMPLETED) 4 mg, Intravenous, Once, 1 dose, On 09/24/22 at 0545, IV push over 2-5 minutes. 0540 (Given - Provid er: Cassandra Eng RN) ondansetron (ZOFRAN) injection 4 mg (COMPLETED) 4 mg, Intravenous, Once, 1 dose, On 09/24/22 at 0815, IV push over 2-5 minutes. 0819 (Given - Provid er: Dixie Zaldivar RN) sodium chloride 0.9% bolus infusion 500 mL (COMPLETED) 500 mL, Intravenous, Administer over 15 Minutes, Bolus (Once), 1 dose, On 09/24/22 at 0545 0541 (New Bag - Prov ider: Cassandra Eng RN)0556 (Infusion Stop Time - Provider: Nat Shoemaker RN) PRN Medication Order 09/22/2022 09/23/2022 09/24/2022 iopamidol (ISOVUE-370) 76 % injection 100 mL (COMPLETED) 100 mL, Intravenous, IMG once as needed, Contrast, 1 dose, Starting on 09/24/22 at 0753, Until 09/24/22 at 0753 0753 (Given - Provid er: Abiodun B Faustin, RTR) documented in this encounter Additional Health Concerns Assessment Noted Time PHQ-9 Depression Total Score: 0 03/08/19 22 9:30 AM BOG WORKER documented as of this encounter Care Teams Mechanic Foreman Relationship Specialty Start Date End Date Abiodun Segura II, MD [address] [place] [address] PCP - General FAMILY PRACTICE 03/09/21 [place] [address] [place] [address] PODIATRY/SURGERY 05/05/22 documented as of this encounter
--- OUTSIDE RECORDS SUMMARY | 2024-03-02 22:24 | XMS_ITS | Encounter Summary ---
Author Organization [facility] Address [address] [place] [address]. [place] [address] [place] [address] Care Team Providers Care J2Ee Software Engineer Name Role Phone Colton SILVEIRA MD, Abiodun Rushing Primary Care Provider Victoriano Langston MD Unavailable [phone] Encounter Details Date Type Department Care Team (Late st Contact Info) Description 10/16/2022 6:34 PM CDT Anesthesia Event [facility] Endo/GI [place], [place] [phone] Douglas Loja MD [address] [place], [place] [id number] Anesthesia Record Procedure Summary Procedure Name Responsible Anesthesiologist Anesthesia Start Time Anesthesia Stop Time EGD WITH BIOPSY 10/16/22 1834 10/16/22 18 42 Events Date Time Event Comment 10/16/2022 1834 An Start Patient ID and consent checked and patient reassessed. 184 ANES Record on Paper 1841 An Stop Meds * Agents No agents on file. * Blood No blood administrations on file. Lines, Drains, and Airways Type Details Placement Removal Peripheral IV Placement Date: 10/11/22; Placement Time: 1801; Placed Outside of This Facility?: No; Size: 20 G; Orientation: Right; Location: Upper arm; Insertion attempts: 2; Ultrasound-guided Placement?: Yes; Patient Tolerance: Tolerated well; Removal Date: 11/08/22; Removal Time: 1349 10/11/22 1801 by Dhaval Danielle RN 11/08/22 1349 by Automatic Discharge Provider documented in this encounter Social History Tobacco [...] Recorded Patient Health Questionnaire-2 Score 0 12/13/2022 [facility] - Occupational Stress [...] place to sleep or slept in a custodial (including now)? No 11/10/2022 Comments No Sex [...] or climbing stairs? Yes 11/10/2022 3:37 AM EMILEET Sunshine Talamantes RN Activ e * Question Answer Date of Assessment Author Status Do you have difficulty dressing or bathing? Yes 11/10/2022 3:37 AM EMILEET Sunshine Talamantes RN A ctive Because of a physical, mental, or emotional condition, do you have difficulty doing errands alone such as visiting a doctor's office or shopping? Yes 11/10/2022 3:37 AM EMILEET Sunshine Talamantes [...] st Contact Info) Description 03/14/2024 11:45 AM CEREAL MAKER Office Visit [facility] [phone] Marvin Mckeon MD [facility] [address] [place] [address] 03/20/2024 11:30 AM CEREAL MAKER Office Visit [facility] Family Medicine - [address] [phone] Abiodun Segura II, MD [address] [place] [phone] documented as of this encounter Goals Goal Patient Goal Type Associated Problems Recent Progress Patient-Stated? Author Family - family caregiver with be involved in care transitions and discharge planning Lifestyle No Natty Cheek, RN documented as of this encounter Visit Diagnoses Not on filedocumented in this encounter Additional Health Concerns Assessment Noted Time PHQ-9 Depression Total Score: 0 03/08/19 22 9:30 AM CEREAL MAKER documented as of this encounter Care Teams J2Ee Software Engineer Relationship Specialty Start Date End Date Abiodun Segura II, MD [address] [place] [address] PCP - General FAMILY PRACTICE 03/09/21 [place] [address] [place] [address] PODIATRY/SURGERY 05/05/22 documented as of this encounter
--- OUTSIDE RECORDS SUMMARY | 2024-03-02 22:24 | XMS_ITS | Encounter Summary ---
Author Organization [facility] Address [address] [place] [address]. [place] [address] [place] [address] Care Team Providers Care Head Sawyer Automatic Name Role Phone Colton SILVEIRA MD, Yasmin Rushing Primary Care Provider Victoriano Langston MD Unavailable Reason for Visit * Reason Comments Type 2 Diabetes Patient present for DM 2 follow up and A1c Encounter Details Date Type Department Care Team (Late st Contact Info) Description 09/20/2022 9:00 AM CDT Office Visit [facility] Family Medicine - [place] [address] [place] [address] Yasmin Valenzuela II, MD [address] [place] [address] Type 2 Diabetes (Patient present for DM 2 follow up and A1c) Social History Tobacco Use Types Packs/Day Years Used Date Smoking Tobacco: Never Smokeless Tobacco: Never Tobacco Cessation:Counseling Given: No Alcohol Use Standard Drinks/Week Comments Yes 0 [...] Recorded Patient Health Questionnaire-2 Score 0 05/05/2022 [facility] - Occupational [...] in a senior care (including now)? No 09/03/2022 Comments No Sex and Gender Information Value Date Recorded Sex Assigned at Female 12/17/2021 2:07 AM CDT Legal Sex Female 2:58 PM CDT Gender Identity Female 12/17/2021 2:07 AM CDT Sexual Orientation Straight 12/17/2021 2: 07 AM CDT documented as of this encounter Last Filed Vital Signs Vital Sign Reading Time Taken Comments Blood Pressure 119/71 09/20/2022 9:11 AM CDT Pulse 81 09/20/2022 9:11 AM CDT Temperature 36.1 ??C (97 ??F) 09/20/2022 9:11 AM CDT Respiratory Rate 16 09/20/2022 9:11 AM CDT Oxygen Saturation 97% 09/20/2022 9:11 AM CDT Inhaled Oxygen Concentration - - Weight 88.2 kg (194 lb 6.4 oz) 09/20/2022 9:11 A M CDT Height - - Body Mass Index 31.38 09/03/2022 1:14 PM CDT documented in this encounter Functional [...] Notes * Yasmin Valenzuela II, MD - 09/20/2022 9:00 AM CDT Images from the original note were not included. [facility] [address] [address] OFFICE FOLLOW UP NOTE Encounter Date: 09/20/2022 Chief Complaint: Type 2 Diabetes (Patient present for DM 2 follow up and A1c) History of Present Illness: 52-year-old female with history of diabetes, hypertension, hyperlipidemia, Charcot foot, history ofamputation of toes on left foot, constipation, blindness of right eye here to follow-up after recent hospitalization for concern for infection of right first and second toe. Bone biopsy was conductedfor osteomyelitis concerns and was found to be negative. Patient continues to follow-up with podiatry for ongoing evaluation. Patient here to have A1c checked and blood pressure check and recommendations for treatment of hot flashes. Patient reports severe fatigue since beginning Lyrica for neuropathy. She wonders if she can discontinue. Review Of Systems: Positive ROS items as [...] other left toe(s) (HHS/HCC) (CMS/HCC) Atherosclerosis of [place] arteries of extremities with intermittent claudication, bilateral legs (CMS/HCC) Past Medical History: Diagnosis Date Arthritis Charcot foot due to diabetes mellitus (HHS/HCC) (CMS/HCC) LEFT FOOT Constipation COVID-19 Diabetes mellitus (HHS/HCC) ([facility]) Diabetic neuropathy ([facility]/HCC) ([facility]) High cholesterol Hypertension 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 Social Determinants of Health Financial Resource Strain: [...] mouth nightly at bedtime.) 90 tablet 1 cyclobenzaprine (FLEXERIL) 10 MG tablet Take 1 tablet (10 mg total) by mouth 3 (three) times daily as needed. 90 tablet 5 dulaglutide (TRULICITY) 4.5 MG/0.5ML injection (PEN) Inject 4.5 mg into the skin once a week. Indications: Diabetes 2 mL 5 HUMALOG MIX 75/25 (75-25) 100 UNIT/ML Suspension INJECT 60 UNITS SUBCUTANEOUSLY ONCE DAILY IN THE MORNING THEN 55 ONCE DAILY IN THE EVENING (Patient taking differently: Inject 55-65 Units into the skin see administration instructions. INJECT 65 UNITS SUBCUTANEOUSLY ONCE DAILY IN THE MORNING THEN 55ONCE DAILY IN THE EVENING) 40 mL 2 hydrocortisone (HYTONE) 2.5 % ointment Apply 1 Application topically daily as needed. Indications: Rash Apply to face hydrOXYzine (ATARAX) 25 MG tablet Take 1-2 tablets (25-50 mg total) by mouth nightly at bedtime. Indications: Burning Feeling and Itching lisinopril (PRINIVIL) 20 MG tablet Take 1 tablet (20 mg total) by mouth every evening. Indications:hypertension 30 tablet 03 omeprazole 40 MG capsule Take 1 capsule (40 mg total) by mouth in the morning. 30 capsule 1 ondansetron 4 MG disintegrating tablet Take 1 tablet (4 mg total) by mouth every 8 (eight) hours asneeded for Nausea. 20 tablet 0 oxyCODONE immediate release (ROXICODONE) 10 MG immediate release tablet Take 1 tablet (10 mg total)by mouth every 6 (six) hours as needed. Indications: Acute Pain < 7 Day Supply 10 tablet 0 simvastatin (ZOCOR) 40 MG tablet TAKE 1 TABLET BY MOUTH AT BEDTIME (Patient taking differently: Take 1 tablet (40 mg total) by mouth nightly at bedtime.) 90 tablet 3 venlafaxine XR (EFFEXOR-XR) 37.5 MG 24 hr capsule Take 1 capsule (37.5 mg total) by mouth daily. 90capsule 3 No current facility-administered medications for this visit. Allergies Allergen Reactions Fish Oil Unknown Amoxicillin Rash Penicillins Rash Objective: Filed Vitals: 09/20/22 0911 BP: 119/71 Pulse: 81 Resp: 16 Temp: 97 ??F (36.1 ??C) TempSrc: Skin SpO2: 97% Weight: 88.2 kg (194 lb 6.4 oz) Nursing note reviewed. Physical Exam Vitals and nursing note reviewed. Constitutional: General: She is not in acute distress. Appearance: Normal appearance. She is not ill-appearing. HENT: Head: Normocephalic and atraumatic. Nose: Nose normal. Eyes: Comments: Unchanged from previous exams. Cardiovascular: Rate and Rhythm: Normal rate and regular rhythm. Heart sounds: Normal heart sounds. Pulmonary: Effort: Pulmonary effort is normal. Breath sounds: Normal breath sounds. Musculoskeletal: Cervical back: Normal range of motion and neck supple. No rigidity. Comments: Patient with absent toes left foot. Toes of right foot with no signs of infection at thistime. Patient is slightly tender to touch right first and second toe at the tip. Skin: General: Skin is warm and dry. Neurological: Mental Status: She is alert and oriented to person, place, and time. Psychiatric: Mood and Affect: Mood normal. Behavior: Behavior normal. Thought Content: Thought content normal. Judgment: Judgment normal. Labs: Results for orders placed or performed in visit on 09/20/22 A1C (BACK OFFICE) Result Value Ref Range HGB A1C 8.8 % Counseling The patient and patient's family was counseled regarding instructions for management, patient and family education and importance of compliance with treatment. Assessment: 1. Type 2 diabetes mellitus with diabetic neuropathic arthropathy, with long- term current use of insulin ([facility]) ([facility]) A1C (BACK OFFICE) dulaglutide (TRULICITY) 4.5 MG/0.5ML injection (PEN) 2. Primary hypertension 3. Hot flashes due to menopause venlafaxine XR (EFFEXOR-XR) 37.5 MG 24 hr capsule 4. Diabetic foot infection (HHS/HCC) (CMS/HCC) 5. Acquired absence of other left toe(s) (HHS/HCC) ([facility]) 6. Atherosclerosis of [place] arteries of extremities with intermittent claudication, bilateral legs([facility]) Plan: Orders Placed This Encounter Medications DISCONTD: pregabalin (LYRICA) 100 MG capsule dulaglutide (TRULICITY) 4.5 MG/0.5ML injection (PEN) venlafaxine XR (EFFEXOR-XR) 37.5 MG 24 hr capsule 1. Type 2 diabetes mellitus with diabetic neuropathic arthropathy, with long- term current use of insulin (HHS/HCC) ([facility]) Patient will continue Humalog 75/25 60 units in the morning and 50 5 in the evening and we will increase Trulicity to 4.5 mg weekly and patient will follow- up in clinic in 3 months for hemoglobin [id number]. - A1C (BACK OFFICE) - dulaglutide (TRULICITY) 4.5 MG/0.5ML injection (PEN); Inject 4.5 mg into the skin once a week. Indications: Diabetes Dispense: 2 mL; Refill: 5 2. Primary hypertension Patient's blood pressure is at goal. We will continue lisinopril 20 mg daily and amlodipine 10 mg daily. We will recheck blood pressure at follow-up in 3 months. 3. Hot flashes due to menopause Options reviewed with patient and we will begin with SNRI venlafaxine 37.5 mg daily and we will reassess in 3 months. Patient may need hormone replacement therapy if her hot flashes remain severe. - venlafaxine XR (EFFEXOR-XR) 37.5 MG 24 hr capsule; Take 1 capsule (37.5 mg total) by mouth daily.Dispense: 90 capsule; Refill: 3 4. Diabetic foot infection (HHS/HCC) ([facility]) Patient does not appear to have an infection at this time. Patient is not tolerating Lyrica for herneuropathy. We will discontinue Lyrica and have patient use venlafaxine which can also help with neuropathy although not as well as Lyrica. We will reassess in 3 months. 5. Acquired absence of other left toe(s) ([facility]/HCC) ([facility]) Patient's left foot has no signs of infection. 6. Atherosclerosis of [place] arteries of extremities with intermittent claudication, bilateral legs([facility]) Patient is asymptomatic at this time over the distances that she walks. We will continue risk factor control patient will continue to remain as active as she can to help maintain normal blood flow. I personally spent a total of 37 minutes on the day of the encounter. This includes [id number] and [id number]-face time I provided on the day of the encounter & excludes time spent performing separately reportable services. Medications Discontinued During This Encounter Medication Reason pregabalin (LYRICA) 100 MG capsule Side effects dulaglutide (TRULICITY) 3 MG/0.5ML injection Dose adjustment YASMIN VALENZUELA MD 09/20/2022 Portions of this note were dictated using Done. speech recognition software. Occasional wrong wordor sound-alike substitutions may have occurred due to the inherent limitations of voice recognition software. Please read the chart carefully and recognize, using context, where the substitutions may have occurred. documented in this encounter Plan of Treatment Upcoming Encounters Date Type Department Care Team (Late st Contact Info) Description 03/14/2024 11:45 AM STATION AGENT Office Visit [facility] [address] Marvin Mckeon MD [facility] [address] [place], [place] [id number] 03/20/2024 11:30 AM STATION AGENT Office Visit [facility] Family Medicine - [place] [address] [place] [phone] Yasmin Valenzuela II, MD [address] [place], [place] [id number] documented as of this encounter Goals Goal Patient Goal Type Associated Problems Recent Progress Patient-Stated? Author Family - family caregiver with be involved in care transitions and discharge planning Lifestyle No Natty Cheek, RN documented as of this encounter Procedures Procedure Name Priority Date/Time Associated Diagnosis Comments HEMOGLOBIN, GLYCOSYLATED Routine 09/20/2022 Type 2 diabetes mellitus with diabetic neuropathic arthropathy, with long-term current use of insulin ([facility]) documented in this encounter Results * A1C (BACK OFFICE) (09/20/2022) HGB A1C 8.8 % MG-[facility] 09/20/2022 us Yasmin Valenzuela II, MD LABORATORY Final R esult [facility] [address] [place] [address], documented in this encounter Visit Diagnoses Diagnosis Type 2 diabetes mellitus with diabetic neuropathic arthropathy, with long-term current use of insulin ([facility] HHS/[facility])- Primary Primary hypertension Unspecified essential hypertension Hot flashes due to menopause Diabetic foot infection ([facility]) Type II or unspecified type diabetes mellitus with other specified manifestations, not stated as uncontrolled Acquired absence of other left toe(s) ([facility] HHS/[facility]) Atherosclerosis of [place] arteries of extremities with intermittent claudication, bilateral legs ([facility]) documented in this encounter Additional Health Concerns Assessment Noted Time PHQ-9 Depression Total Score: 0 03/08/19 22 9:30 AM STATION AGENT documented as of this encounter Care Teams Head Sawyer Automatic Relationship Specialty Start Date End Date Yasmin Valenzuela II, MD [address] [place] [address] PCP - General FAMILY PRACTICE 03/09/21 [place] [address] [place] [address] PODIATRY/SURGERY 05/05/22 documented as of this encounter
--- OUTSIDE RECORDS SUMMARY | 2024-03-02 22:24 | XMS_ITS | Encounter Summary ---
Author Organization [facility] Address [address] [place] [address]. [place] [address] [place] [address] Care Team Providers Care Risk And Insurance Consultant Name Role Phone Colton SILVEIRA MD, Abiodun Rushing Primary Care Provider Victoriano Langston MD Unavailable [phone] Reason for Referral * Imaging (Emergency) - Closed Specialty Diagnoses / Procedures Referred By Lyla hcaney Referred To Contact RADIOLOGY Procedures CTA CHEST PE PROTOCOL Americo Elder MD,PHD [address] [place] [id number] Phone: tel: fax: Referral ID Status Reason Start Date Expiration Date Visits Re quested Visits Authorized [id number] Closed 09/29/2022 09/30/2023 1 1 Reason for Visit * Reason Comments Dizziness Shortness Of Breath Encounter Details Date Type Department Care Team (Late st Contact Info) Description 09/29/2022 7:12 PM CDT - 09/29/2022 10:31 PM CDT Emergency [facility] [place] [address] Americo Elder MD,PHD [address] [place] [id number] Dizziness; Shortness Of Breath Discharge Disposition: Home or Self Care (Routine [...] slept in a prison (including now)? No 09/03/2022 Comments No Sex and Gender Information Value Date Recorded Sex Assigned at Female 12/17/2021 2:07 AM CDT Legal Sex Female 2:58 PM CDT Gender Identity Female 12/17/2021 2:07 AM CDT Sexual Orientation Straight 12/17/2021 2: 07 AM CDT documented as of this encounter Last Filed Vital Signs Vital Sign Reading Time Taken Comments Blood Pressure 158/103 09/29/2022 9:00 PM CDT Pulse 90 09/29/2022 8:25 PM CDT Temperature 36.7 ??C (98 ??F) 09/29/2022 6:43 PM CDT Respiratory Rate 18 09/29/2022 6:43 PM CDT Oxygen Saturation 99% 09/29/2022 9:05 PM CDT Inhaled Oxygen Concentration - - Weight 88.9 kg (196 lb) 09/29/2022 6:43 PM CDT Height 167.6 cm (5' 6 ) 09/29/2022 6:43 PM CDT Body Mass Index 31.64 09/29/2022 6:43 PM CDT documented in this encounter Functional Status * Are you deaf or do you have serious difficulty hearing Answer Date of Assessment Author Status No 09/03/2022 9:25 PM CDT Azeem Tom RN Active * Are you blind or do you have serious difficulty seeing, even when wearing glasses? Answer Date of Assessment Author Status Yes 09/03/2022 9:25 PM Azeem Knox RN Active * Do you have serious difficulty walking or climbing stairs? Answer Date of Assessment Author Status Yes 09/03/2022 9:25 PM Azeem Knox RN Active * Do you have difficulty dressing or bathing? Answer Date of Assessment Author Status Yes 09/03/2022 9:25 PM Azeem Knox RN Active * Because of a physical, [...] Date Author Status Yes 09/03/2022 9:25 PM Azeem Knox RN Active documented in this encounter Discharge Instructions * Attachments The following attachments cannot be sent through Care Everywhere. * Dehydration Discharge Instructions, Adult (Trinidadian) documented in this encounter Medications at Time [...] EVENING 40 mL 2 3 01/31/20 23 hydrocortisone (HYTONE) 2.5 % ointmentIndications :Skin Rash Apply 1 Application topically daily as needed. Indications: Rash Apply to face 2 10/12/19 23 hydrOXYzine (ATARAX) 25 MG tabletIndications:B urning Sensation [...] as of this encounter ED Notes * Aliza Cheek RN - 09/29/2022 10:30 PM CDT Provider discussed today's findings with the patient. The patient has been given information regarding their treatment, follow up and concerning symptoms for which they should seek urgent or emergentattention. All questions answered. Pt ambulated out of ED with all personal belongings. IV d/c, vitals stable. * Americo Elder MD,PHD - 09/29/2022 9:05 PM CDT I have been requested by the radiology department to include a statement with regards to contrast administration in the setting of a patient with renal dysfunction. In concordance with the consensus statements from the [employer] and National kidney foundation, contrast shall not be withheld in this patient in which a potentially disabling or life-threatening condition needs to be diagnosed without an immediately obtainable and reasonable alternative to rule out this diagnosis. The patient will be given intravenous fluids [email or web address] Americo Elder MD,PHD 09/29/222104 * Americo Elder MD,PHD - 09/29/2022 8:24 PM CDT EMERGENCY DEPARTMENT ENCOUNTER Chief Complaint Chief Complaint Patient presents with Dizziness Shortness Of Breath History of Present Illness 52-year-old female presenting to the emergency department with generalized weakness. The patient feels like she is very tired and very weak when she stands. Standing makes her feel dizzy and like shehas to sit down again. She feels like her tongue is heavy. In triage she complained of headache and shortness of breath, there is not mention these to me. Physical Exam Filed Vitals: 09/29/22 1843 09/29/22201909/29/22202009/29/222021 BP: 127/79 (!) 168/95 (!) 168/95 (!) 164/89 Pulse: 85 82 83 84 Resp: 18 Temp: 98 ??F (36.7 ??C) TempSrc: Temporal SpO2: 100% Weight: 88.9 kg (196 lb) Height: 5' 6 (1.676 m) CONSTITUTIONAL: Patient is awake, alert, in no acute distress, conversant HEAD AND FACE: Normocephalic, atraumatic EYES: Normal sclera, extraocular motions grossly normal NECK: Supple, no obvious asymmetry CARDIOVASCULAR: Regular rate and rhythm RESPIRATORY: No respiratory distress or tachypnea, no wheezing or crackles ABDOMEN: Soft, nontender, nondistended, NEUROLOGIC: GCS 15, CN2-12 grossly intact, moves all extremities EXTREMITIES: Warm, no edema Diagnostic Studies / Procedures ELECTROCARDIOGRAMS: EKG, TIME 542 Rate 95, normal sinus rhythm, no ectopy, normal intervals, normal axis, no concordant ST elevations, T wave flattening most prominently in V6 Interpretation by me: non-specific repolarization abnormality LABORATORY STUDIES: Results for orders placed or performed during the hospital encounter of 09/29/22 CBC W/DIFF AUTOMATED Result Value Ref Range WBC 11.3 (H) 4.5 - 11.0 x10'3/uL RBC 4.46 4.20 - 5.40 x10'6/uL HGB 13.3 12.0 - 16.0 G/DL HCT 40.7 38.0 - 48.0 % MCV 91.3 81.0 - 99.0 FL MCH 29.8 27.0 - 31.0 PG MCHC 32.7 32.0 - 36.0 G/DL RDW 12.9 11.5 - 14.5 % PLT 289 130 - 400 x10'3/uL MPV 11.2 9.3 - 12.2 FL DIFFERENTIAL TYPE AUTOMATED DIFFERENTIAL NEUTROPHILS 50.6 % LYMPHOCYTES 42.6 % MONOCYTES 5.3 % EOSINOPHILS 0.7 % BASOPHILS 0.5 % IMMATURE GRANS 0.3 % ABS. NEUTROPHILS TOTAL 5.73 1.80 - 7.70 x10'3/uL ABS. LYMPHOCYTES 4.82 (H) 1.00 - 4.80 x10'3/uL ABS. MONOCYTES 0.60 0.24 - 0.86 x10'3/uL ABS. EOSINOPHILS 0.08 0.04 - 0.36 x10'3/uL ABS. BASOPHILS 0.06 0.01 - 0.08 x10'3/uL ABS. IMMATURE GRANULOCYTES 0.03 0.00 - 0.49 x10'3/uL COMPREHENSIVE METABOLIC PANEL Result Value Ref Range GLUCOSE 154 (H) 70 - 99 MG/DL BUN 29 (H) 7 - 18 MG/DL CREATININE S/P/B 1.78 (H) 0.55 - 1.02 MG/DL SODIUM S/P/B 136 136 - 145 MMOL/L POTASSIUM S/P/B 3.8 3.5 - 5.1 MMOL/L CHLORIDE S/P/B 103 100 - 108 MMOL/L CO2 27.0 21 - 32 MMOL/L CALCIUM S/P/B 9.9 8.5 - 10.1 MG/DL BILIRUBIN TOTAL S/P/B 0.3 0.2 - 1.2 MG/DL TOTAL PROTEIN S/P/B 9.4 (H) 6.4 - 8.2 G/DL ALBUMIN S/P/B 3.9 3.4 - 5.0 G/DL AST 13 (L) 15 - 37 U/L ALT 26 14 - 55 U/L ALKALINE PHOSPHATASE S/P/B 152 (H) 50 - 136 U/L ANION GAP 6.0 5 - 15 MMOL/L BUN CREATININE RATIO 16.3 6 - 26 A/G RATIO 0.7 (L) 1.0 - 2.0 RATIO GFR ESTIMATE 34 (L) >90 ML/MIN/1.73 M2 TROPONIN, QUANT Result Value Ref Range TROPONIN I HIGH SENSITIVITY 6 <54 ng/L TROPONIN, QUANT Result Value Ref Range TROPONIN I HIGH SENSITIVITY 6 <54 ng/L MAGNESIUM Result Value Ref Range MAGNESIUM 2.3 1.8 - 2.4 MG/DL PRO-BRAIN NATRIURETIC PEPTIDE Result Value Ref Range PRO-B TYPE NATRIURETIC PEPTIDE 5 <125 PG/ML PHOSPHORUS, INORGANIC PHOSPHATE Result Value Ref Range PHOSPHORUS 4.0 2.5 - 4.9 MG/DL THYROXINE, FREE (FT4) Result Value Ref Range FREE T4 0.95 0.76 - 1.46 NG/DL THYROID STIM HORMONE, TSH Result Value Ref Range TSH 4.440 (H) 0.358 - 3.74 uIU/ML IMAGING STUDIES CTA CHEST PE PROTOCOL Final Result by User, [id number] (09/29 2105) Examination: CT angiography of the chest with contrast, per pulmonary embolism protocol. Clinical Indication: PULMONARY EMBOLISM (PE) SUSPECTED, HIGH PROB Comparison: CT 01/01/2022. Technique: Chest CT angiography with IV contrast. Standard and MIP images were reviewed. IV contrast: 80 mL of Isovue-370. Dose reduction: This CT exam was performed using one or more of the following dose-reduction techniques: Automated exposure control, adjustment of the mA and/or kV according to patient size, and/or use of iterative reconstruction technique. Findings: PULMONARY ARTERIES: Exam quality: Satisfactory. Pulmonary embolism: No acute or chronic pulmonary embolism. Central pulmonary arteries: Normal caliber. HEART: Heart: No right heart strain. Normal size. Aorta: Normal caliber. Coronary arteries: No calcifications. Pericardium: Normal. No effusion, thickening, or calcification. MEDIASTINUM: Support tubes and lines: None. Base of neck/thyroid: Normal. Lymph nodes: No supraclavicular, axillary, internal mammary, mediastinal, or hilar adenopathy. Trachea: Normal. Esophagus: Normal. LUNGS AND PLEURA: Lungs: Clear without focal or diffuse abnormality. Pleura: No effusion, thickening, or calcification. UPPER ABDOMEN: Redemonstrated partially visualized dilated right renal collecting system, similar to prior. BONES/SOFT TISSUES: No focal lesion. Impression: 1. No pulmonary embolism identified. 2. No acute findings identified within the chest. 3. Partially visualized dilated right renal collecting system, similar to prior. Referred By: Interpreted By: Lex Webb MD, 09/29/2022 8:59 PM XR CHEST PORTABLE Final Result by User, [id number] (09/29 1928) Examination: Chest 1 view portable History: Shortness of breath DATE/TIME: 09/29/2022 6:53 PM Comparison: 01/08/2022 Technique: AP portable view of the chest was obtained. Findings: Heart size, mediastinal contours and pulmonary vasculature are within normal limits. No pulmonary consolidation, pleural effusion or pneumothorax. No acute osseous abnormality. Impression: No acute findings. Referred By: Interpreted By: Arley Gastelum MD, 09/29/2022 7:27 PM ED Course / Medical Decision Making Patient presenting with a chief complaint of generalized weakness and fatigue I reviewed the patient's labs, which are significant for prerenal azotemia with a mild HEMA suggestive of dehydration. 2 high-sensitivity troponins are not elevated without delta. A BNP is not elevated, ruling out heart failure with greater than 99% sensitivity. TSH is elevated though T4 is within normal limits. Her CBC is unremarkable. I reviewed the radiologist's interpretation of the patient's radiologic diagnostics, which are unremarkable, as above (includes chest x-ray, CTA of the chest). I independently reviewed the patient's EKG, my interpretation is above. I interpreted the patient's pulse oximeter at rest, which is 99% on room air, which is normal and determined that this patient is not hypoxic I interpreted the patient's quality assurance monitor final as showing a sinus rhythm and hemodynamic stability Medication management: The patient was treated with IV fluids for treatment of dehydration Acute coronary syndrome, pulmonary embolism, congestive heart failure has been ruled out. The patient was thus deemed stable for discharge from emergency department. She is instructed to aggressively hydrate at home including decreasing the intake of sugary beverages (which she admits to drinking frequently), and follow up with her primary physician for repeat kidney function evaluation, further evaluation, and further treatment. Additionally, the patient is referred to cardiology due to her concern for heart disease in the setting of a family history for the purposes of risk factor evaluation and medication. Clinical Impression Dehydration (Primary) Fatigue Disposition: Discharge home Patient provided with printed and verbal discharge care instructions and was instructed to return to the emergency department immediately with worsening symptoms or new worrisome symptoms. Patient was instructed to follow-up with primary care physician within 1 week for further evaluation and treatment. Diagnoses & treatment discussed with patient Patient expressed understanding and agreed. Appointment made for patient with cardiology on November 02, 2022. Patient provided with appointment information including clinic contact information and address. Americo Elder MD,PHD 09/30/22 2019 * CYNTHIA Babb - 09/29/2022 6:44 PM CDT [place], [place] EMERGENCY DEPARTMENT ENCOUNTER Medical Screening Examination 09/29/22 6:44 PM Chief Complaint : Dizziness and Shortness Of Breath HPI : Lena Youngblood is a 52-year-old female who presents lightheadedness and dyspnea. Denies any chest pain. Reports 8 out of 10 headache. Still able to ambulate. No numbness tingling, focal weakness. Vital Signs: Filed Vitals: 09/29/22 1843 BP: 127/79 Pulse: 85 Resp: 18 Temp: 98 ??F (36.7 ??C) TempSrc: Temporal SpO2: 100% Weight: 88.9 kg (196 lb) Height: 5' 6 (1.676 m) Physical exam: A brief physical exam was completed to facilitate/expedite patient care. [place] findings include: no obvious deficit, unable to assess gait here 2/2 dizziness. No signs of resp distress Plan: Labs & Imaging was ordered to facilitate patient care. and EKG was ordered to faciliate patient care. CYNTHIA BABB 09/29/2022 CYNTHIA Babb 09/29/221916 Cosigned by Hubert Guzman MD at 09/30/2022 5:59 AM CDT * Opal Rodriguez RN - 09/29/2022 6:39 PM CDT Pt here with co dizziness and shortness of breath that has been going on for about a week. Pt gets very lightheaded and short of breath with walking or any kind of exertion. Pt denies chest pain, headache (8/10). Pt is AOX4 OPAL RODRIGUEZ RN documented in this encounter Plan of Treatment Upcoming Encounters Date Type Department Care Team (Late st Contact Info) Description 03/14/2024 11:45 AM FUR DRUMMER Office Visit [facility] [phone] Marvin Mckeon MD [facility] [address] [place] [address] 03/20/2024 11:30 AM FUR DRUMMER Office Visit [facility] - [employer] [address] [place] [phone] Abiodun Segura II, MD [address] [place] [address] documented as of this encounter Goals Goal Patient Goal Type Associated Problems Recent Progress Patient-Stated? Author Family - family caregiver with be involved in care transitions and discharge planning Lifestyle No Natty Cheek RN documented as of this encounter Procedures Procedure Name Priority Date/Time Associated Diagnosis Comments TROPONIN, QUANT STAT 09/29/2022 8:59 PM CDT ECG 12-LEAD STAT 09/29/2022 8:57 PM CDT CTA CHEST PE PROTOCOL STAT 09/29/2022 8:48 PM CDT XR CHEST PORTABLE STAT 09/29/2022 7:2 5 PM CDT PRO-BRAIN NATRIURETIC PEPTIDE Routine 09/29/2022 7:25 PM CDT COMPREHENSIVE METABOLIC PANEL STAT 09/29/2022 7:25 PM CDT CBC W/DIFF AUTOMATED STAT 09/29/2022 7:25 PM CDT THYROXINE, FREE (FT4) Routine 09/29/2022 7:25 PM CDT TROPONIN, QUANT STAT 09/29/2022 7:25 PM CDT THYROID STIM HORMONE TSH Routine 09/29/2022 7:25 PM CDT PHOSPHORUS, INORGANIC PHOSPHATE Routine 09/29/2022 7:25 PM CDT MAGNESIUM Routine 09/29/2022 7:25 PM CDT documented in this encounter Results * TROPONIN, QUANT (09/29/2022 8:59 PM CDT) TROPONIN I HIGH SENSITIVITY 6 <54 ng/L 09/29/2022 9:[address] [facility] Comment: HIGH DOSES OF BIOTIN, TROPONIN-SPECIFIC AUTOANTIBODIES, AND ANTIBODY THERAPY CONTAINING HAMA MAY INTERFERE WITH THIS TEST RESULT. CORRELATION TO CLINICAL HISTORY AND PRESENTATION RECOMMENDED. 09/29/2022 8:59 PM CDT us J[facility] Final Result [facility] [address] [place] [address], * ECG 12 lead (09/29/2022 8:57 PM CDT) 09/29/2022 8:57 PM CDT Narrative [facility] ([facility]) RAD - 09/29/2022 10:00 PM CDT ?[facility] [place] ? [address] [facility] ? Test Date: ?2022-09-29 Pat Name: ? LENA FORD ?Department: ?? 41 ? Room: ? EXAM21 Gender: ? Female ? 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 [id number] : ?1970 ? Requested By: JANNETH SMITH Order Number: [id number] ? Reading : ?? Reynaldo Leonardo ? Measurements Intervals ?[place] ? Rate: ? 83 ? P: ?57 TX: ? 186 ?QRS: ?24 QRSD: ? 87 ? T: ?33 QT: ? 299 ? QTc: ?352 ? 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 RAD * CTA CHEST PE PROTOCOL (09/29/2022 8:48 PM CDT) Anatomical Region Laterality Modality Chest Computed Tomogra phy 09/29/2022 8:59 PM CDT Impressions 09/29/2022 9:05 PM CDT Impression: 1. ??No pulmonary embolism identified. 2. ??No acute findings identified within the chest. 3. ??Partially visualized dilated right renal collecting system, similar to prior. Referred By: ?? Interpreted By: Lex Webb MD, 09/29/2022 8:59 PM Narrative 09/29/2022 9:05 PM CDT Examination: CT angiography of the chest with contrast, per pulmonary embolism protocol. Clinical Indication: PULMONARY EMBOLISM (PE) SUSPECTED, HIGH PROB Comparison: CT 01/01/2022. Technique: Chest CT angiography with IV contrast. Standard and MIP images were reviewed. IV contrast: 80 mL of Isovue-370. Dose reduction: This CT exam was performed using one or more of the following dose-reduction techniques: Automated exposure control, adjustment of the mA and/or kV according to patient size, and/or use of iterative reconstruction technique. Findings: PULMONARY ARTERIES: Exam quality: Satisfactory. Pulmonary embolism: No acute or chronic pulmonary embolism. Central pulmonary arteries: Normal caliber. HEART: Heart: No right heart strain. Normal size. Aorta: Normal caliber. Coronary arteries: No calcifications. Pericardium: Normal. No effusion, thickening, or calcification. MEDIASTINUM: Support tubes and lines: None. Base of neck/thyroid: Normal. Lymph nodes: No supraclavicular, axillary, internal mammary, mediastinal, or hilar adenopathy. Trachea: Normal. Esophagus: Normal. LUNGS AND PLEURA: Lungs: Clear without focal or diffuse abnormality. Pleura: No effusion, thickening, or calcification. UPPER ABDOMEN: Redemonstrated partially visualized dilated right renal collecting system, similar to prior. BONES/SOFT TISSUES: No focal lesion. Procedure Note Lex Webb MD - 09/29/2022 Examination: CT angiography of the chest with contrast, per pulmonaryembolism protocol. Clinical Indication: PULMONARY EMBOLISM (PE) SUSPECTED, HIGH PROB Comparison: CT 01/01/2022. Technique: Chest CT angiography with IV contrast. Standard and MIP images werereviewed. IV contrast: 80 mL of Isovue-370. Dose reduction: This CT exam was performed using one or more of thefollowing dose-reduction techniques: Automated exposure control,adjustment of the mA and/or kV according to patient size, and/or use ofiterative reconstruction technique. Findings: PULMONARY ARTERIES: Exam quality: Satisfactory. Pulmonary embolism: No acute or chronic pulmonary embolism. Central pulmonary arteries: Normal caliber. HEART: Heart: No right heart strain. Normal size. Aorta: Normal caliber. Coronary arteries: No calcifications. Pericardium: Normal. No effusion, thickening, or calcification. MEDIASTINUM: Support tubes and lines: None. Base of neck/thyroid: Normal. Lymph nodes: No supraclavicular, axillary, internal mammary, mediastinal,or hilar adenopathy. Trachea: Normal. Esophagus: Normal. LUNGS AND PLEURA: Lungs: Clear without focal or diffuse abnormality. Pleura: No effusion, thickening, or calcification. UPPER ABDOMEN: Redemonstrated partially visualized dilated right renalcollecting system, similar to prior. BONES/SOFT TISSUES: No focal lesion. Impression: 1. No pulmonary embolism identified. 2. No acute findings identified within the chest. 3. Partially visualized dilated right renal collecting system, similar toprior. Referred By: Interpreted By: Lex Webb MD, 09/29/2022 8:59 PM us Americo Elder MD,PHD CT Final Resu lt * XR CHEST PORTABLE (09/29/2022 7:25 PM CDT) Anatomical Region Laterality Modality Chest Radiographic Shelli ging 09/29/2022 7:27 PM CDT Impressions 09/29/2022 7:28 PM CDT Impression: No acute findings. Referred By: ?? Interpreted By: Arley Gastelum MD, 09/29/2022 7:27 PM Narrative 09/29/2022 7:28 PM CDT Examination: Chest 1 view portable History: Shortness of breath DATE/TIME: 09/29/2022 6:53 PM Comparison: 01/08/2022 Technique: AP portable view of the chest was obtained. Findings: Heart size, mediastinal contours and pulmonary vasculature are within normal limits. ??No pulmonary consolidation, pleural effusion or pneumothorax. ??No acute osseous abnormality. Procedure Note Arley Gastelum MD - 09/29/2022 Examination: Chest 1 view portable History: Shortness of breath DATE/TIME: 09/29/2022 6:53 PM Comparison: 01/08/2022 Technique: AP portable view of the chest was obtained. Findings: Heart size, mediastinal contours and pulmonary vasculature arewithin normal limits. No pulmonary consolidation, pleural effusion orpneumothorax. No acute osseous abnormality. Impression: No acute findings. Referred By: Interpreted By: Arley Gastelum MD, 09/29/2022 7:27 PM us Janneth R Smith PA GENERAL IMAGING Final Result * (ABNORMAL) THYROID STIM HORMONE, TSH (09/29/2022 7:25 PM CDT) TSH 4.440(H) 0.358 - 3.74 uIU/ML 09/29/2022 9:[address] [facility] Comment: HIGH DOSES OF BIOTIN MAY INTERFERE WITH THIS TEST RESULT. CORRELATION TO CLINICAL HISTORY AND PRESENTATION RECOMMENDED. 09/29/2022 7:25 PM CDT Jann[facility] Final Result Performing Organization Address City/[facility]/ZIP Co de Phone Number [facility] [address] [place] [address], [place] [phone] * THYROXINE, FREE (FT4) (09/29/2022 7:25 PM CDT) FREE T4 0.95 0.76 - 1.46 NG/DL 09/29/2022 9:[address] [facility] 09/29/2022 7:25 PM CDT Jann[facility] Final Result Performing Organization Address City/[facility]/ZIP Co de Phone Number [facility] [address] [place] [address], [place] [phone] * PHOSPHORUS, INORGANIC PHOSPHATE (09/29/2022 7:25 PM CDT) PHOSPHORUS 4.0 2.5 - 4.9 MG/DL 09/29/2022 9:[address] [facility] 09/29/2022 7:25 PM CDT Jann[facility] Final Result [facility] [address] [place] [address], [place] [phone] * PRO-BRAIN NATRIURETIC PEPTIDE (09/29/2022 7:25 PM CDT) PRO-B TYPE NATRIURETIC PEPTIDE 5 <125 PG/ML 09/29/2022 9:[address] [facility] Comment: CUT POINTS ESTABLISHED BY [employer] NT PROBNP (ICON) STUDY (2006). AGE INDEPENDENT: <300 PG/ML HAS A 99% NEGATIVE PREDICTIVE VALUE FOR EXCLUDING ACUTE CHF <50 YEARS: >450 PG/ML IS CONSISTENT WITH ACUTE CHF 50-75 YEARS: >900 PG/ML IS CONSISTENT WITH ACUTE CHF >75 YEARS: >1800 PG/ML IS CONSISTENT WITH ACUTE CHF IN PATIENTS WITH RENAL INSUFFICIENCY (GFR <60), >1200 PG/ML YIELDS A DIAGNOSTIC SENSITIVITY AND SPECIFICITY OF 89% AND 72% FOR ACUTE CHF. 09/29/2022 7:25 PM CDT us Janneth [facility] Final Result Performing Organization Address City/[facility]/ZIP Co de Phone Number [facility] [address] [place] [address], [place] [phone] * MAGNESIUM (09/29/2022 7:25 PM CDT) MAGNESIUM 2.3 1.8 - 2.4 MG/DL 09/29/2022 9:[address] [facility] 09/29/2022 7:25 PM CDT Jannethjohn Smith PA LABORATORY Final Result [facility] [address] [place] [address], [place] [phone] * TROPONIN, QUANT (09/29/2022 7:25 PM CDT) TROPONIN I HIGH SENSITIVITY 6 <54 ng/L 09/29/2022 8:[address] [facility] Comment: HIGH DOSES OF BIOTIN, TROPONIN-SPECIFIC AUTOANTIBODIES, AND ANTIBODY THERAPY CONTAINING HAMA MAY INTERFERE WITH THIS TEST RESULT. CORRELATION TO CLINICAL HISTORY AND PRESENTATION RECOMMENDED. 09/29/2022 7:25 PM CDT us Janneth MARIE LABORATORY Final Result [facility] [address] [place] [address], * (ABNORMAL) COMPREHENSIVE METABOLIC PANEL (09/29/2022 7:25 PM CDT) Pathologist [facility] GLUCOSE 154(H) 70 - 99 MG/DL 09/29/2022 8:[address] [facility] BUN 29(H) 7 - 18 MG/DL 09/29/2022 8:[address] [facility] CREATININE S/P/B 1.78(H) 0.55 - 1.02 MG/DL 09/29/2022 8:[address] [facility] SODIUM S/P/B 136 136 - 145 MMOL/L 09/29/2022 8:[address] [facility] POTASSIUM S/P/B 3.8 3.5 - 5.1 MMOL/L 09/29/2022 8:[address] [facility] CHLORIDE S/P/B 103 100 - 108 MMOL/L 09/29/2022 8:[address] [facility] CO2 27.0 21 - 32 MMOL/L 09/29/2022 8:[address] [facility] CALCIUM S/P/B 9.9 8.5 - 10.1 MG/DL 09/29/2022 8:01 PM [facility] BILIRUBIN TOTAL S/P/B 0.3 0.2 - 1.2 MG/DL 09/29/2022 8:01 PM [facility] Comment: THIS ASSAY IS NOT RECOMMENDED FOR PATIENTS UNDERGOING TREATMENT WITH ELTROMBOPAG DUE TO THE POTENTIAL FOR FALSELY ELEVATED RESULTS. TOTAL PROTEIN S/P/B 9.4(H) 6.4 - 8.2 G/DL 09/29/2022 8:01 PM [facility] ALBUMIN S/P/B 3.9 3.4 - 5.0 G/DL 09/29/2022 8:01 PM [facility] AST 13(L) 15 - 37 U/L 09/29/2022 8:01 PM [facility] ALT 26 14 - 55 U/L 09/29/2022 8:01 PM [facility] ALKALINE PHOSPHATASE S/P/B 152(H) 50 - 136 U/L 09/29/2022 8:01 PM [facility] ANION GAP 6.0 5 - 15 MMOL/L 09/29/2022 8:01 PM [facility] BUN CREATININE RATIO 16.3 6 - 26 09/29/2022 8:01 PM [facility] A/G RATIO 0.7(L) 1.0 - 2.0 RATIO 09/29/2022 8:01 PM [facility] GFR ESTIMATE 34(L) >90 ML/MIN/1.7 3 M2 09/29/2022 8:01 PM [facility] Comment: NOTE: eGFR is not calculated for patients <18 years of age. This is an estimated GFR calculation using the new CKD EPI creatinine equation without race and so does not require a correction factor for race. This estimated GFR should not be used for calculating drug doses. 09/29/2022 7:25 PM CDT Janneth MARIE LABORATORY Final Result [facility] [address] [place] [address], * (ABNORMAL) CBC W/DIFF AUTOMATED (09/29/2022 7:25 PM CDT) WBC 11.3(H) 4.5 - 11.0 x10'3/uL 09/29/2022 7:[address] [facility] RBC 4.46 4.20 - 5.40 x10'6/uL 09/29/2022 7:[address] [facility] HGB 13.3 12.0 - 16.0 G/DL 09/29/2022 7:[address] [facility] HCT 40.7 38.0 - 48.0 % 09/29/2022 7:[address] [facility] MCV 91.3 81.0 - 99.0 FL 09/29/2022 7:[address] [facility] MCH 29.8 27.0 - 31.0 PG 09/29/2022 7:[address] [facility] MCHC 32.7 32.0 - 36.0 G/DL 09/29/2022 7:[address] [facility] RDW 12.9 11.5 - 14.5 % 09/29/2022 7:[address] [facility] PLT 289 130 - 400 x10'3/uL 09/29/2022 7:[address] [facility] MPV 11.2 9.3 - 12.2 FL 09/29/2022 7:[address] [facility] DIFFERENTIAL TYPE AUTOMATED DIFFERENTIAL 09/29/2022 7:[address] [facility] NEUTROPHILS % 50.6 % 09/29/2022 7:[address] [facility] LYMPHOCYTES % 42.6 % 09/29/2022 7:[address] [facility] MONOCYTES % 5.3 % 09/29/2022 7:[address] [facility] EOSINOPHILS 0.7 % 09/29/2022 7:[address] [facility] BASOPHILS 0.5 % 09/29/2022 7:[address] [facility] IMMATURE GRANS % 0.3 % 09/30/19 7:[address] [facility] ABS. NEUTROPHILS TOTAL 5.73 1.80 - 7.70 x10'3/uL 09/29/2022 7:[address] [facility] ABS. LYMPHOCYTES 4.82(H) 1.00 - 4.80 x10'3/uL 09/29/2022 7:[address] [facility] ABS. MONOCYTES 0.60 0.24 - 0.86 x10'3/uL 09/29/2022 7:[address] [facility] ABS. EOSINOPHILS 0.08 0.04 - 0.36 x10'3/uL 09/29/2022 7:[address] [facility] ABS. BASOPHILS 0.06 0.01 - 0.08 x10'3/uL 09/29/2022 7:[address] [facility] ABS. IMMATURE GRANULOCYTES 0.03 0.00 - 0.49 x10'3/uL 09/29/2022 7:[address] [facility] 09/29/2022 7:25 PM CDT Janneth MARIE LABORATORY Final Result [facility] [address] [place] [address], [place] [phone] documented in this encounter Visit Diagnoses Diagnosis Dehydration- Primary Fatigue Other malaise and fatigue documented in this encounter Administered Medications Inactive Administered Medications - up to 3 most recent administrations Medication Order MAR Action Action Date Dose Rate Site iopamidol (ISOVUE-370) 76 % injection 80 mL 80 mL, Intravenous, IMG once as needed, Contrast, 1 dose, Starting on Sun09/29/22 at 2047, Until Sun09/29/22 at 2047 Given 09/29/2022 8:48 PM CDT 80 mLs Le ft Arm lactated ringers bolus infusion 1,000 mL 1,000 mL, Intravenous, Administer over 30 Minutes, Once, 1 dose, On Sun09/29/22 at 2030 New Bag 09/29/2022 9:07 PM CDT 1,000 mLs sodium chloride 0.9% bolus infusion 1,000 mL 1,000 mL, Intravenous, Administer over 60 Minutes, Once, 1 dose, On Sun09/29/22 at 1900 New Bag 09/29/2022 7:25 PM CDT 1,000 mLs documented in this encounter Active and Recently Administered Medications Times are shown in CDT. Scheduled Medication Order 09/27/2022 09/28/2022 09/29/2022 lactated ringers bolus infusion 1,000 mL (COMPLETED) 1,000 mL, Intravenous, Administer over 30 Minutes, Once, 1 dose, On Sun09/29/22 at 2030 2107 (New Bag - Prov ider: Aliza Cheek RN)2213 (Infusion Stop Time - Provider: Trey Gaming RN) sodium chloride 0.9% bolus infusion 1,000 mL (COMPLETED) 1,000 mL, Intravenous, Administer over 60 Minutes, Once, 1 dose, On Sun09/29/22 at 1900 1925 (New Bag - Prov ider: Mirta Ozuna RN)221 (Infusion Stop Time - Provider: Trey Gaming RN) PRN Medication Order 09/27/2022 09/28/2022 09/29/2022 iopamidol (ISOVUE-370) 76 % injection 80 mL (COMPLETED) 80 mL, Intravenous, IMG once as needed, Contrast, 1 dose, Starting on Sun09/29/22 at 2048, Until Sun09/29/22 at 2048 2048 (Given - Provid er: Ivon Nuñez RTR) documented in this encounter Additional Health Concerns Assessment Noted Time PHQ-9 Depression Total Score: 0 03/08/19 9:30 AM FUR DRUMMER documented as of this encounter Care Teams Risk And Insurance Consultant Relationship Specialty Start Date End Date Abiodun Segura II, MD [address] [place] [address] PCP - General FAMILY PRACTICE 03/09/21 [place] [address] [place] [address] PODIATRY/SURGERY 05/05/22 documented as of this encounter
--- OUTSIDE RECORDS SUMMARY | 2024-03-02 22:24 | XMS_ITS | Encounter Summary ---
Author Organization [facility] Address [address] [place] [address]. [place] [address] [place] [address] Care Team Providers Care Sanitation Worker Name Role Phone Colton SILVEIRA MD, Abiodun Rushing Primary Care Provider Victoriano Langston MD Unavailable [phone] Encounter Details Date Type Department Care Team (Latest Contact Info) Description 09/20/2022 Travel Social History Tobacco Use Types Packs/Day [...] Recorded Patient Health Questionnaire-2 Score 0 05/05/2022 [facility] [...] slept in a intermediate (including now)? No 09/03/2022 Comments No Sex [...] Assessment Author Status No 09/03/2022 9:25 PM Azeem Knox RN Active * Are you blind or [...] Knox RN Active documented in this encounter Plan of Treatment Upcoming Encounters Date Type Department Care Team (Late st Contact Info) Description 03/14/2024 11:45 AM EPIC AMBULATORY ANALYST Office Visit [facility] [phone] Marvin Mckeon MD Three [facility] [address] [place] [address] 03/20/2024 11:30 AM EPIC AMBULATORY ANALYST Office Visit [facility] Family Medicine - [place] [address] [place] [phone] Abiodun Segura II, MD [address] [place] [address] documented as of this encounter Goals Goal Patient Goal Type Associated Problems Recent Progress Patient-Stated? Author Family - family caregiver with be involved in care transitions and discharge planning Lifestyle No Natty Cheek, RN documented as of this encounter Visit Diagnoses Not on filedocumented in this encounter Additional Health Concerns Assessment Noted Time PHQ-9 Depression Total Score: 0 03/08/19 22 9:30 AM EPIC AMBULATORY ANALYST documented as of this encounter Care Teams Sanitation Worker Relationship Specialty Start Date End Date Abiodun Segura II, MD [address] [place] [address] PCP - General FAMILY PRACTICE 03/09/21 [place] [address] [place] [address] PODIATRY/SURGERY 05/05/22 documented as of this encounter
--- OUTSIDE RECORDS SUMMARY | 2024-03-02 22:24 | XMS_ITS | Encounter Summary ---
Author Organization [facility] Address [address] [place] [address]. [place] [address] [place] [address] Care Team Providers Care Carton Wrapper Name Role Phone Colton SILVEIRA MD, Abiodun Rushing Primary Care Provider Victoriano Langston MD Unavailable [phone] Encounter Details Date Type Department Care Team (Latest Contact Info) Description 10/16/2022 10:32 AM CDT - 10/16/2022 11:59 PM T Hospital Encounter [facility] [place] [address] Karlo Saldivar MD [address] [phone] Discharge Disposition: Home or Self Care (Routine [...] Score 0 05/05/2022 [facility] - [...] No 09/03/2022 Housing Stability Vital Sign Answer Ryamon e Recorded In the last 12 months, [...] slept in a penitentiary (including now)? No 09/03/2022 Comments No Sex [...] Author Status No 11/10/2022 3:37 AM EMILEET Sunshnie Talamantes RN Active documented in this encounter Medications at Time of Discharge amLODIPine (NORVASC) 10 MG tabletIndication s:Hypertension, unspecified type Take 1 tablet by mouth once daily 90 tablet 1 08/07/2022 06/15/19 24 dulaglutide (TRULICITY) 4.5 MG/0.5ML injection (PEN)Indications :Diabetes [...] EVENING 40 mL 2 08/17/2022 01/31/20 23 lisinopril (PRINIVIL) 20 MG tabletIndication s:hypertension Take 1 tablet (20 mg total) by mouth every evening. Indications: hypertension 30 tablet 03 09/09/2022 06/15/19 24 simvastatin (ZOCOR) 40 MG tabletIndication s:Hypercholester emia [The details of the medication are not available because there are pending changes by a home health clinician.] 90 tablet 3 10/04/2021 06/15/19 24 venlafaxine XR (EFFEXOR-XR) 37.5 MG 24 hr capsuleIndicatio ns:Hot flashes due to menopause Take 1 capsule (37.5 mg total) by mouth daily. 90 capsule 3 09/20/2022 03/05/19 24 documented as of this encounter Progress Notes * Brittany Law MD - 10/16/2022 10:32 AM CDT Additional documentation from 10/15/22-10/31/22 may be found under the media tab. NG CUTTER * Karlo Saldivar MD - 10/16/2022 10:32 AM CDT Your stomach ulcer biopsies were benign. Please call the office to schedule a repeat EGD soon to make sure this ulcer is healing. documented in this encounter Plan of Treatment Upcoming Encounters Date Type Department Care Team (Late st Contact Info) Description 03/14/2024 11:45 AM LACING CUTTER Office Visit [facility] [phone] Marvin Mckeon MD Three [facility] [address] [place] [address] 03/20/2024 11:30 AM LACING CUTTER Office Visit [facility] Family Medicine - [place] [address] [place] [phone] Abiodun Segura II, MD [address] [place] [address] documented as of this encounter Goals Goal Patient Goal Type Associated Problems Recent Progress Patient-Stated? Author Family - family caregiver with be involved in care transitions and discharge planning Lifestyle No Natty Cheek RN documented as of this encounter Procedures Procedure Name Priority Date/Time Associated Diagnosis Comments PATHOLOGY Routine 10/16/2022 12:00 AM CDT documented in this encounter Results * Pathology (10/16/2022 12:00 AM CDT) COPATH REPORT ?[facility] ? [address] [facility]. ? [place], [place] ??[address] ? [id number] ? Department of Pathology ? Pathology Report ? SURGICAL FINAL REPORT Patient Name: LENA YOUNGBLOOD ? : 1970 (Age: 52) ? Location: [facility] Gender: F ?Collected Date: 10/16/2022 Med Rec #: [id number] ?Date Received: 12/14/2022 Date Reported: 12/15/2022 Provider: KARLO SALDIVAR MD Specimen(s) Gastric, Biopsy R/O h.pylori Final Pathologic Diagnosis STOMACH ULCER; BIOPSY: -GASTRIC MUCOSA WITH ULCER -H PYLORI IMMUNOSTAIN IS NEGATIVE Electronically Signed Out ? BESSIE LANDIN MD Pathologist [facility] Microscopic Description: Microscopic examination is performed, and the findings support the final diagnosis. The Immunohistochemical (IHC) stain controls perform as expected. These tests were developed and the performance characteristics determined by: [place], [place]; [place], [place]; [employer] [place], [place]: and/or [facility] [place], [place]. They have not been cleared or approved by the [place] Food and Drug Administration (FDA). The FDA has determined that such clearance or approval is not necessary. These tests are used for clinical purposes. Prognostic and predictive testing should be interpreted in the context of additional and/or histopathological findings. Clinical History Abd pain Gross Description Received is a single formalin-filled container labeled with the patient's name (Lena Youngblood), date of (1970), collection date/time 10/16/2022 at 1837, and gastric biopsy. The specimen consists of two pink-moahn fragments of tissue measuring 0.5 cm in greatest dimension. The specimen is submitted in 1 cassette. :[facility] Billing Fee Code(s): 58508, [id number] [facility] 10/16/2022 12/14/2022 8:5 4 AM CDT Comment:Gastric, Biopsy R/O h.pylori us Karlo Saldivar MD PATHOLOGY/CYTOLOGY ORDERABLES Fi nal Result [facility] [address] [place] [address], documented in this encounter Visit Diagnoses Not on filedocumented in this encounter Additional Health Concerns Assessment Noted Time PHQ-9 Depression Total Score: 0 03/08/19 22 9:30 AM LACING CUTTER documented as of this encounter Care Teams Carton Wrapper Relationship Specialty Start Date End Date Abiodun Segura II, MD [address] [place] [address] PCP - General FAMILY PRACTICE 03/09/21 [place] [address] [place] [address] PODIATRY/SURGERY 05/05/22 documented as of this encounter
--- OUTSIDE RECORDS SUMMARY | 2024-03-02 22:24 | XMS_ITS | Encounter Summary ---
Author Organization [facility] Address [address] [place] [address]. [place] [address] [place] [address] Care Team Providers Care Ice Carver Name Role Phone Colton SILVEIRA MD, Abiodun Rushing Primary Care Provider Victoriano Langston MD Unavailable [phone] Encounter Details Date Type Department Care Team (Latest Contact Info) Description 09/24/2022 Travel Social History Tobacco Use Types Packs/Day [...] Recorded Patient Health Questionnaire-2 Score 0 05/05/2022 [facility] [...] st Contact Info) Description 03/14/2024 11:45 AM PULPWOOD BUYER Office Visit [facility]-[address] [phone] Marvin Mckeon MD Three [facility] [address] [place] [address] 03/20/2024 11:30 AM PULPWOOD BUYER Office Visit [facility] Family Medicine - [place] [address] [place] [phone] Abiodun Segura II, MD [address] [place] [address] documented as of this encounter Goals Goal Patient Goal Type Associated Problems Recent Progress Patient-Stated? Author Family - family caregiver with be involved in care transitions and discharge planning Lifestyle No Natty Cheek, RN documented as of this encounter Visit Diagnoses Not on filedocumented in this encounter Additional Health Concerns Assessment Noted Time PHQ-9 Depression Total Score: 0 03/08/19 22 9:30 AM PULPWOOD BUYER documented as of this encounter Care Teams Ice Carver Relationship Specialty Start Date End Date Abiodun Segura II, MD [address] [place] [address] PCP - General FAMILY PRACTICE 03/09/21 [place] [address] [place] [address] PODIATRY/SURGERY 05/05/22 documented as of this encounter
--- OUTSIDE RECORDS SUMMARY | 2024-03-02 22:24 | XMS_ITS | Encounter Summary ---
Author Organization [facility] Address [address] [place] [address]. [place], [place] [id number] [place] [id number] Care Team Providers Care Channel Cementer Insole Machine Name Role Phone Colton SILVEIRA MD, Abiodun Rushing Primary Care Provider Victoriano Langston MD Unavailable [phone] Reason for Referral * Imaging (Urgent) - Closed Specialty Diagnoses / Procedures Referred By Contac t Referred To Contact RADIOLOGY Procedures US ABD LIMITED Ramesh Dexter DO [address] [address] Phone: tel: fax: Referral ID Status Reason Start Date Expiration Date Visits Re quested Visits Authorized [id number] Closed 01/18/2023 01/19/2024 1 1 BURSEMENT SPECIALIST * Imaging (Emergency) - Closed Specialty Diagnoses / Procedures Referred By Contac t Referred To Contact RADIOLOGY Procedures CT ABD+PEL W IV CON ONLY Tre Chung PA [address] [place] [address] Phone: tel: fax: Referral ID Status Reason Start Date Expiration Date Visits Re quested Visits Authorized [id number] Closed 10/11/2022 10/12/2023 1 1 Reason for Visit * Reason Comments Vomiting Abdominal Pain * Auth/Cert (Routine) Specialty Diagnoses / Procedures Referred By Contxavier t Referred To Contact Diagnoses Leukocytosis Intractable abdominal pain Intractable abdominal pain Procedures NONE Janelle Pimentel, DO 1 [place] [address] Phone: tel: fax: Referral ID Status Reason Start Date Expiration Date Visits Re quested Visits Authorized [id number] 1 1 Encounter Details Date Type Department Care Team (Late st Contact Info) Description 10/11/2022 3:00 PM CDT - 10/20/2022 12:00 PM CDT Hospital Encounter [facility] Med/Surg [address] [place], [place] [id number] [phone] Carroll Yen PA [address] [place] [id number] Janelle Pimentel, DO 1 [place], [place] [address] [phone] Radha Gomez MD [place], [place] [id number] [phone] (Work) Holli Murray MD [place], [place] [id number] [phone] (Work) Farrukh Reed, DO 1 [place], [place] [id number] Ramesh Dexter, DO [address] [phone] Vomiting; Abdominal Pain Discharge Disposition: Home or Self [...] Score 0 05/05/2022 [facility] [...] Sign Reading Time Taken Comments Blood Pressure 126/77 10/15/2022 5:00 AM CDT Pulse 77 10/15/2022 5:00 AM CDT Temperature 36.7 ??C (98.1 ??F) 10/15/2022 5:00 AM CD T Respiratory Rate 16 10/15/2022 5:00 AM CDT Oxygen Saturation 99% 10/15/2022 5:00 AM CDT Inhaled Oxygen Concentration - - Weight 88.4 kg (194 lb 14.2 oz) 10/15/2022 5:00 AM CDT Height 167.6 cm (5' 6 ) 10/11/2022 2:03 PM CDT Body Mass Index 31.46 10/11/2022 2:03 PM CDT documented in this encounter Functional Status * Question Answer Date of Assessment Author Status Do you have serious difficulty walking or climbing stairs? Yes 10/11/2022 11:33 PM CDT Amanda Qureshi RN A ctive * Question Answer Date of Assessment Author Status Do you have difficulty dressing or bathing? No 10/11/2022 11:33 PM Amanda Ballesteros RN Active Because of a physical, mental, or emotional condition, do you have difficulty doing errands alone such as visiting a doctor's office or shopping? Yes 10/11/2022 11:38 PM Amanda Ballesteros RN Ac tive * Are you deaf [...] difficulty concentrating, remembering, or making decisions? No 10/11/2022 11:33 PM Amanda Ballesteros RN Active * Because of a physical, mental, or emotional condition, do you have serious difficulty concentrating, remembering, or making decisions? Answer Entry Date Author Status No 10/11/2022 11:33 PM Amanda Ballesteros RN Active documented in this encounter Medications [...] Indications: Diabetes 2 mL 5 09/20/2022 11/12/19 HUMALOG MIX 75/25 (75-25) 100 UNIT/ML SuspensionIndica [...] hypertension 30 tablet 03 09/09/2022 06/15/19 24 pantoprazole EC (PROTONIX) 40 MG tablet [...] Progress Notes * Brittany Law MD - 10/20/2022 12:00 PM CDT Additional documentation from 10/15/22-10/31/22 may be found under the media tab. BURSEMENT SPECIALIST * Gigi Sutton RN - 10/13/2022 1:03 PM CDT 10/13/22 1302 Interdisciplinary Group Conference Team Members Present Physician;Case/Care management;Nursing;PT/OT Physician present for group conference Holli Murray MD Barriers to Discharge Barriers Administering IV meds Administering IV meds follow up IV pain med for abdominal pain, IVF started for hema, hope for d/c tomorrow with improvement * Nanda Cartagena MD - 10/13/2022 7:17 AM CDT DAILY PROGRESS NOTE SUBJECTIVE: No acute events overnight. Patient seen and evaluated at bedside. Continues to report periumbilicalabdominal pain. She has been requesting IV Dilaudid for the pain. She reports 1 watery bowel movement earlier this morning which helped ease some of her abdominal spasms. She has not been eating or drinking much due to her abdominal pain. She says that she does try to move around a little bit in her room during the day. Refused miralax this morning Review of Systems: ROS as noted above OBJECTIVE: Vitals: Blood pressure 105/62, pulse 78, temperature 97.9 ??F (36.6 ??C), temperature source Oral, resp. rate 18, height 5' 6 (1.676 m), weight 86.4 kg (190 lb 7.6 oz), last menstrual period 10/29/2004, SpO2 100 %, not currently ., Body mass index is 30.74 kg/m??. Temp: [97.9 ??F (36.6 ??C)-98.4 ??F (36.9 ??C)] 97.9 ??F (36.6 ??C) Pulse: [77-87] 78 Resp: [18] 18 BP: (105-138)/(62-80) 105/62 Physical Exam: Physical Exam Constitutional: General: She is not in acute distress. Appearance: Normal appearance. She is obese. HENT: Head: Normocephalic and atraumatic. Mouth/Throat: Mouth: Mucous membranes are dry. Cardiovascular: Rate and Rhythm: Normal rate and regular rhythm. Pulmonary: Effort: Pulmonary effort is normal. No respiratory distress. Breath sounds: Normal breath sounds. Abdominal: General: Bowel sounds are normal. There is no distension. Palpations: Abdomen is soft. Tenderness: There is abdominal tenderness (suprapubic). Musculoskeletal: Right lower leg: No edema. Left lower leg: No edema. Skin: General: Skin is warm and dry. Capillary Refill: Capillary refill takes less than 2 seconds. Neurological: General: No focal deficit present. Mental Status: She is alert and oriented to person, place, and time. I/O's: Intake/Output Summary (Last 24 hours) at 10/13/2022 0717 Last data filed at 10/12/2022 1200 Gross per 24 hour Intake 1310 ml Output -- Net 1310 ml Labs: Recent Labs Lab 10/11/22 1740 10/12/22 0450 10/13/22 0515 NA 139 139 134* K 4.2 3.6 3.8 CL 105 107 100 CO2 25.4 25.6 25.5 AGAP 8.6 6.4 8.5 CA 9.9 9.1 8.9 GLU 161* 119* 156* BUN 20* 17 15 CR 1.04* 1.03* 1.57* AST 28 18 15 ALT 28 23 24 ALB 3.7 3.3* 3.2* TP 9.4* 8.3* 8.3* , Recent Labs Lab 10/11/22 1800 10/12/22 0450 10/13/22 0515 WBC 14.7* 12.5* 11.7* RBC 4.09* 3.94* 3.85* HGB 12.3 11.8* 11.4* HCT 36.5* 35.3* 34.5* MCV 89.2 89.6 89.6 MCH 30.1 29.9 29.6 MCHC 33.7 33.4 33.0 RDW 13.1 13.2 13.1 PLT 300 286 303 MPV 11.4 11.4 11.0 PERNEU 82.2 65.1 65.4 PERLYM 13.0 29.1 28.4 PERMON 3.9 4.6 4.7 BASO 0.2 0.3 0.4 DTYPE AUTOMATED DIFFERENTIAL AUTOMATED DIFFERENTIAL AUTOMATED DIFFERENTIAL Cultures: Bcx pending Radiology studies: Radiology Results (Last 48 hours) 10/11/22 2215 XR CHEST PORTABLE Final result [...] By: Arley Gastelum MD, 10/11/2022 7:26 PM ASSESSMENT AND PLAN: Patient is a 52-year-old female with PMHx of diabetes mellitis type II, diabetic neuropathy, hyperlipidemia, hypertension, renal disorder, and charcot foot d/t diabetes mellitus. Presented to ED withacute onset of abdominal pain onset this AM. Admitted with leukocytosis and intractable abdominal pain Abdominal pain Acute on chronic. Patient reports needing to take Linzess daily at home to have a BM Differential includes gastroenteritis vs constipation vs IBS vs IBD Less likely appendicitis, cholecystitis, pancreatitis WBC 14->12.5 Lipase WNL ESR and CRP uptrending Urine culture NGx1D Blood cultures NGx1D CXR and CT abd/pelvis reassuring. Low concern for infectious etiology at this time. Will hold off on abx - Bentyl TID - MiraLAX - Dulcolax suppository prn - Zofran for nausea - Recommend outpatient GI follow up HEMA Baseline Cr 0.7 - Cr 1.57 this morning - Likely 2/2 decreased PO intake/dehydration - Start IVF at 75ml/hr for 8 hours - Encourage PO fluids Renal Stones CT abd+pelvis revealed: at least one medullary calcification versus urinary tract stone in the right kidney. There is a small nonobstructive left renal stone is well. No left hydronephrosis. - Strain urine - Monitor for urine retention - Patient denies urinary sx. UA reveals few bacteria, 8 WBC. Ucx negative Diabetes Mellitus Hemoglobin A1c 09/20/22 8.8% - Patient on Trulicity 4.5 mg SQ weekly -Hold while inpatient - Humalog mix 75/25 60 units SQ in AM and 55 units SQ in PM - Patient with poor oral intake, will half insulin doses and titrate as clinically indicated - SSI - Hypoglycemic protocol Hypertension - Resume home Amlodipine 10mg, Lisinopril 20mg Stable chronic medical conditions: HLD: Lipitor Anxiety: Venlafaxine Diet: Regular Fluids: IV NS at 75ml/hr x8hrs DVT Prophylaxis: SQ Heparin DISPOSITION: Pending improvement in abdominal pain Nanda Cartagena MD PGY-3, Family Medicine Cosigned by Holli Murray MD at 10/13/2022 2:37 PM CDT Associated attestation - Holli Murray MD - 10/13/2022 2:37 PM CDT I have seen and examined the patient, and discussed the plan of care with the resident physician. Ireviewed their note and agree with the findings and plan of care, as above. A substantial amount of time was spent in direct observation of the advanced provider, discussion of the patient with the care team, direct patient care, and independent review and analysis of labs and imaging. Patient seen and examined resting in bed, states abdominal pain is improving, some nausea, no vomiting. Tolerating clears. Had a BM which helped with the abdominal cramping. On exam she is awake and alert, obese, mildly drowsy but arousable. Abdomen is soft and mildly tender on palpation. Plan to continue bowel regimen. DC IV pain medication for abdominal pain given no clear source. Noted HEMA, started IVF. Repeat labs in a.m. * Isabelle Marcus RN - 10/13/2022 5:36 AM CDT At the beginning of the shift pt told this nurse that she felt like her sugar was low. Her sugar was then checked to be 58. Pt reported she just wanted juice to try and bring it up, and after grape and orange juice, pt sugar was 153. Pt pain controlled throughout evening with only one pain epsiode.This was controlled by dilauidid. Before the pain onset the patient did have a medium sized bowel movement. Pt did not have anything to eat before the pain set in. Problem: Reduced risk for falls/injury Goal: Reduced Risk for Falls/Injury Outcome: Progressing Problem: Pain - Acute Goal: Achieve acceptable pain level Outcome: Progressing Problem: Constipation Goal: Bowel elimination within specified parameters Outcome: Progressing Problem: Pain [...] and interventions as needed. Outcome: Progressing * Za Carreno RN - 10/12/2022 4:09 PM CDT Problem: Reduced risk for falls/injury Goal: Reduced Risk for Falls/Injury Outcome: Progressing Problem: Pain - Acute Goal: Achieve acceptable pain level Outcome: Progressing Problem: Constipation Goal: Bowel elimination within specified parameters Outcome: Progressing Problem: Pain [...] and interventions as needed. Outcome: Progressing * Gigi Sutton RN - 10/12/2022 11:54 AM CDT 10/12/22 1153 Interdisciplinary Group Conference Team Members Present Physician;Case/Care management;Nursing;PT/OT Physician present for group conference Holli Murray MD Barriers to Discharge Barriers No Barrier- Medical Milestone in Process No Barrier- Medical Milestone in Process follow up advancing diet, likely IBS, abd pain improved overnight, bentyl started, discharge later vs tomorrow; aware that patient OBS * Gigi Sutton RN - 10/12/2022 8:52 AM CDT NCM performed bedside interview, Pt name, verified. ? Home: with daughter Ambulation: Reports independent prior to admission. DME products: walker, wh/chr ADLs: with assist from her daughter Drives: yes but not at night Transport Home: daughter A/O: Answers questions with intent and clarity. Communication: No deficits noted or reported. Home Health: none Occupation: none Address: Verified as per chart. [facility]acy: [facility] [place] PCP: Abiodun Segura Insurance Plan: [facility] Discharge needs: Care Coordination Team will provide discharge planning as needed, and will re-evaluate based on recommendations and treatment course. 10/12/22 0850 Referral Data Source of Information Patient Patient Information Primary Caregiver Self Current living Situation Children (with her daughter) Type of Residence Private residence (no steps to enter; has a basement w/laundry but her daughter does the laundry) Support System Immediate family Are you employed? Not Employed Baseline ADL's Functional Status Other (Comment) (with some assist for adl's when needed, daughter helps) Behavior Oriented;Cooperative Communication Talks;Understands speaking;Understands [place] DC screening tool This is a screening tool it does not take the place of a physical or occupational therapy evaluation. The screening is to screen the patient for what services and destination would be beneficial for patient for next level of care Conversation with the patient/family Discharge to Prior Residence/Living Situation - No New Needs Identified - Will continue to Assess Yes Adequate Resources Available Adequate Resources Yes Anticipated DC Plan Living Arrangements Children (with her daughter) Support Systems Family members Type of Residence Private residence Patient expects to be discharged to: Home or Self care * Nanda Cartagena MD - 10/12/2022 8:12 AM CDT DAILY PROGRESS NOTE SUBJECTIVE: No acute events overnight. Patient seen and evaluated at bedside. Patient reports some improvement in her abdominal pain. She endorses a long history of daily abdominal pain and constipation. She states that she has not had a bowel movement in 2 days. She usually needs to take Linzess in order to have a bowel movement. Patient also endorses nausea and vomiting prior to coming to the hospital. Since admission, she has only felt little bit nauseous. She states that she has never seen a GI doctor Review of Systems: ROS as noted above OBJECTIVE: Vitals: Blood pressure 128/71, pulse 77, temperature 97.9 ??F (36.6 ??C), temperature source Oral, resp. rate 18, height 5' 6 (1.676 m), weight 86.4 kg (190 lb 7.6 oz), last menstrual period 10/29/2004, SpO2 100 %, not currently ., Body mass index is 30.74 kg/m??. Temp: [97 ??F (36.1 ??C)-98.4 ??F (36.9 ??C)] 97.9 ??F (36.6 ??C) Pulse: [77-110] 77 Resp: [14-20] 18 BP: (116-164)/(67-112) 128/71 Physical Exam: Physical Exam Constitutional: General: She is not in acute distress. Appearance: Normal appearance. She is obese. HENT: Head: Normocephalic and atraumatic. Mouth/Throat: Mouth: Mucous membranes are moist. Cardiovascular: Rate and Rhythm: Normal rate and regular rhythm. Pulmonary: Effort: Pulmonary effort is normal. No respiratory distress. Breath sounds: Normal breath sounds. Abdominal: General: Bowel sounds are normal. There is no distension. Palpations: Abdomen is soft. Tenderness: There is no abdominal tenderness. Musculoskeletal: Right lower leg: No edema. Left lower leg: No edema. Skin: General: Skin is warm and dry. Capillary Refill: Capillary refill takes less than 2 seconds. Neurological: General: No focal deficit present. Mental Status: She is alert and oriented to person, place, and time. I/O's: Intake/Output Summary (Last 24 hours) at 10/12/2022 0813 Last data filed at 10/12/2022 0457 Gross per 24 hour Intake 1000 ml Output 400 ml Net 600 ml Labs: Recent Labs Lab 10/11/22 1740 10/12/22 0450 NA 139 139 K 4.2 3.6 CL 105 107 CO2 25.4 25.6 AGAP 8.6 6.4 CA 9.9 9.1 GLU 161* 119* BUN 20* 17 CR 1.04* 1.03* AST 28 18 ALT 28 23 ALB 3.7 3.3* TP 9.4* 8.3* , Recent Labs Lab 10/11/22 1800 10/12/22 0450 WBC 14.7* 12.5* RBC 4.09* 3.94* HGB 12.3 11.8* HCT 36.5* 35.3* MCV 89.2 89.6 MCH 30.1 29.9 MCHC 33.7 33.4 RDW 13.1 13.2 PLT 300 286 MPV 11.4 11.4 PERNEU 82.2 65.1 PERLYM 13.0 29.1 PERMON 3.9 4.6 BASO 0.2 0.3 DTYPE AUTOMATED DIFFERENTIAL AUTOMATED DIFFERENTIAL Cultures: Bcx pending Radiology studies: Radiology Results (Last 48 hours) 10/11/22 2215 XR CHEST PORTABLE Final result [...] By: Arley Gastelum MD, 10/11/2022 7:26 PM ASSESSMENT AND PLAN: Patient is a 52-year-old female with PMHx of diabetes mellitis type II, diabetic neuropathy, hyperlipidemia, hypertension, renal disorder, and charcot foot d/t diabetes mellitus. Presented to ED withacute onset of abdominal pain onset this AM. Admitted with leukocytosis and intractable abdominal pain Abdominal pain Acute on chronic. Improving. Associated symptoms include constipation, nausea and vomiting prior toarrival. Patient reports needing to take Linzess daily to have a BM Differential includes gastroenteritis vs constipation vs IBS. Less likely appendicitis, cholecystitis, pancreatitis WBC 14->12.5 Lipase WNL Urine culture negative Blood cultures pending CXR and CT abd/pelvis reassuring. Low concern for infectious etiology at this time. Will hold off on abx - Start Bentyl TID - MiraLAX - CLD, ADAT - Consider GI consult if no improvement in pain vs outpatient follow up Renal Stones CT abd+pelvis revealed: at least one medullary calcification versus urinary tract stone in the right kidney. There is a small nonobstructive left renal stone is well. No left hydronephrosis. Strain urine Monitor for urine retention Patient denies urinary sx. UA reveals few bacteria, 8 WBC. Ucx negative Diabetes Mellitus Hemoglobin A1c 09/20/22 8.8% - Patient on Trulicity 4.5 mg SQ weekly -Hold while inpatient - Humalog mix 75/25 60 units SQ in AM and 55 units SQ in PM - Patient with poor oral intake, will half insulin doses and titrate as clinically indicated - SSI - Hypoglycemic protocol Hypertension - Resume home Amlodipine 10mg, Lisinopril 20mg Stable chronic medical conditions: HLD: Lipitor Anxiety: Venlafaxine Diet: CLD, ADAT Fluids: PO DVT Prophylaxis: Heparin DISPOSITION: Pending improvement in abdominal pain Nanda Cartagena MD PGY-3, Family Medicine Cosigned by Holli Murray MD at 10/13/2022 2:37 PM CDT Associated attestation - Holli Murray MD - 10/13/2022 2:37 PM CDT I have seen and examined the patient, and discussed the plan of care with the resident physician. Ireviewed their note and agree with the findings and plan of care, as above. A substantial amount of time was spent in direct observation of the advanced provider, discussion of the patient with the care team, direct patient care, and independent review and analysis of labs and imaging. Patient seen and examined resting in bed, states abdominal pain is improving somewhat, some nausea,no vomiting. Has been constipated with some crampy abdominal pain On exam she is awake and alert, obese, mildly drowsy but arousable. Abdomen is soft and mildly tender on palpation. Plan to continue bowel regimen. As needed for pain. Follow labs. Advance diet as tolerated HOLLI MURRAY MD * Brittany Law MD - 10/11/2022 3:00 PM CDT Additional documentation from 10/15/22-10/31/22 may be found under the media tab. BURSEMENT SPECIALIST documented in this encounter H&P Notes * June Leonard, CHIEF MEDICAL OFFICER-BC - 10/11/2022 10:38 PM CDT Hospitalist History and Physical Patient: Lena Youngblood Date: 10/12/2022 female, 52-year-old Admit Date: 10/11/2022 Attending: Janelle Pimentel DO Reason for Admission: Intractable abdominal pain HISTORY OF PRESENT ILLNESS: Lena Youngblood is a 52-year-old female With past medical history significant for diabetes mellitis type II, diabetic neuropathy, hyperlipidemia, hypertension renal disorder, and charcot foot d/t diabetes mellitus. Presented to ED with acute onset of abdominal pain onset this AM. Patient reports eating breakfast this AM after which she started to experience sharp persistent non radiating Periumbilical abdominal pain. Patient denies any aggravating or relieving factors. Patient reports associated symptoms of nausea, vomiting, constipation and headache. Denies fever, chills, chest pain, palpitations, black or bloody stools, hematuria or urinary symptoms. It is noted that patient had been exp eriencing nausea vomiting and abdominal bloating with her trulicity but recently had dose decreasedper endocrinology in which reports improvement in symptoms. Patient states symptoms experienced today are not similar to previous symptoms. Upon assessment patient is alert and oriented x4. In no acute distress, and hemodynamically stable.Patient report LUQ pain with palpation, and frontal headache in which occur after administration ofmorphine. ED Course: ED Vitals:Blood pressure 116/67, pulse 79, temperature 98.1 ??F (36.7 ??C), temperature source Oral, resp. rate 14, height 5' 6 (1.676 m), weight 85.3 kg (188 lb), last menstrual period 10/29/2004, SpO2 99 %, not currently . ED Labs: Sodium 139, potassium 4.2, chloride 105, CO2 25.4, BUN 20, creatinine 1.04, glucose 161 lipase 34, troponin 6, CRP 2.22, WBC 14.7, globin 12.3, hematocrit 36.5, platelets 300, sed rate 52. UA does not indicate infection, ECG revealed sinus rhythm with occasional ventricular premature complexes. Nonspecific T wave abnormality. ED Imaging: CT abdomen+pelvis: No acute abnormalities identified. Stable chronic abnormal appearance of the right kidney. Chest x-ray: No acute findings. ED Management: In ED patient received normal saline 1 L bolus, ondansetron 4 mg IV x1 and Reglan 10mg IV x1 for nausea vomiting. Patient received morphine 4 mg IV x 2 for pain. Patient also receive dicyclomine 20 mg p.o. x1 Benadryl 25 mg IV x1. The pt will be admitted to Observation for further evaluation and treatment. Past Medical History Past Medical History: Diagnosis Date Arthritis Charcot foot due to diabetes mellitus (HHS/HCC) ([facility]) LEFT FOOT Constipation COVID-19 Diabetes mellitus (HHS/HCC) ([facility]) Diabetic neuropathy (HHS/HCC) (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 Authorizing Provider amLODIPine (NORVASC) 10 MG tablet Take 1 tablet by mouth once daily Patient taking differently: Take 1 tablet (10 mg total) by mouth nightly at bedtime. 08/07/22 Yes Abiodun Segura II, MD dulaglutide (TRULICITY) 4.5 MG/0.5ML injection (PEN) Inject 4.5 mg into the skin once a week. Indications: Diabetes Patient taking differently: Inject 4.5 mg into the skin once a week. Indications: Diabetes 09/20/22 Yes Abiodun Segura II, MD HUMALOG MIX 75/25 (75-25) 100 UNIT/ML Suspension INJECT 60 UNITS SUBCUTANEOUSLY ONCE DAILY IN THE MORNING THEN 55 ONCE DAILY IN THE EVENING Patient taking differently: Inject 55-65 Units into the skin see administration instructions. INJECT 65 UNITS SUBCUTANEOUSLY ONCE DAILY IN THE MORNING THEN 55 ONCE DAILY IN THE EVENING 08/17/22 Yes Abiodun Segura II, MD lisinopril (PRINIVIL) 20 MG tablet Take 1 tablet (20 mg total) by mouth every evening. Indications:hypertension 09/09/22 09/09/23 Yes Sofy Acevedo MD simvastatin (ZOCOR) 40 MG tablet TAKE 1 TABLET BY MOUTH AT BEDTIME Patient taking differently: Take 1 tablet (40 mg total) by mouth nightly at bedtime. 10/04/21 Yes Abiodun Segura II, MD venlafaxine XR (EFFEXOR-XR) 37.5 MG 24 hr capsule Take 1 capsule (37.5 mg total) by mouth daily. Patient taking differently: Take 1 capsule (37.5 mg total) by mouth nightly at bedtime. 09/20/22 Yes Abiodun Segura II, MD Family History Family History Problem Relation Name Age of Onset Diabetes Mother Hypertension Mother Heart Attack Father Hypertension Father Stroke Sister Hypertension Sister Breast Cancer Other cousin 49 Social History Social History Socioeconomic History Marital status: Spouse [...] Unstable Housing in the Last Year: No REVIEW OF SYSTEMS: A 14 point review of systems was taken and pertinent positive as per HPI PHYSICAL EXAMINATION: Vital 24 Hour Range Most Recent Value Temperature Temp Min: 97 ??F (36.1 ??C) Max: 98.1 ??F (36.7 ??C) 98.1 ??F (36.7 ??C) Pulse Pulse Min: 79 Max: 110 79 Respiratory Resp Min: 14 Max: 20 14 Blood Pressure BP Min: 116/67 Max: 164/98 116/67 Pulse Oximetry SpO2 Min: 96 % Max: 100 % 99 % O2 No data recorded Vital Most Recent Value First Value Weight 85.3 kg (188 lb) Weight: 85.3 kg (188 lb) Height 5' 6 (167.6 cm) Height: 5' 6 (167.6 cm) BMI (!) 30.36 N/A Physical Exam: CONSTITUTIONAL: Well-developed, well nourished. No acute distress. NEUROLOGICAL: Patient alert, orientated, memory intact. Gait steady. LUNGS: Respirations even and unlabored, chest expansion symmetrical. Lung sounds clear in all lobes, no wheezing, crackles, or adventitious breath sounds. HEART: Rate and rhythm regular. No cardiac murmur, click, or rub noted. ABDOMEN: Soft, LUQ tenderness. Bowel sounds active in all four quadrants. MUSCULOSKELETAL/EXTREMITIES: Extremities are intact, no redness or edema noted of upper or lower extremity. INTEGUMENTARY: Skin color appropriate for ethnicity, dry, warm to touch. No rash, wounds, lesions noted on visible skin. PSYCHOSOCIAL: Calm and cooperative, interacts appropriately with staff. Intake/Output last 3 shifts: I/O last 3 completed shifts: In: 1000 [I.V.:1000] Out: - Labs: Recent Labs Lab 10/11/22 1740 NA 139 K 4.2 CL 105 CO2 25.4 AGAP 8.6 BUN 20* CR 1.04* BUNCREATININ 19.2 GLU 161* CA 9.9 Recent Labs Lab 10/11/22 1800 WBC 14.7* RBC 4.09* HGB 12.3 HCT 36.5* MCV 89.2 MCH 30.1 MCHC 33.7 PLT 300 RDW 13.1 MPV 11.4 Recent Labs Lab 10/11/22 1740 AST 28 ALT 28 No results for input(s): INR, PTT in the last 168 hours. Invalid input(s): ABG arterial blood gases Recent Labs Lab 10/11/22 1740 TROP 6 No results for input(s): PH, PCO2, PO2, [id number], BICARBWB, BASEDEFICIT, BASEEXCESS in the [id number] hours. 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 No acute abnormality identified. 2. Stable chronic abnormal appearance of the right kidney. 3. Other chronic or nonurgent findings as described above. Referred By: Interpreted By: Arley Gastelum MD, 10/11/2022 7:26 PM XR CHEST PORTABLE Result Date: 10/11/2022 IMPRESSION: No acute findings. Referred By: Interpreted By: John Campos, 10/11/2022 10:19 PM Assessment & Plan Lena Youngblood is a 52-year-old With past medical history significant for diabetes mellitis typeII, diabetic neuropathy, hyperlipidemia, hypertension, renal disorder, and charcot foot d/t diabetes mellitus. Presented to ED with acute onset of abdominal pain onset this AM. Admitted with Leukocytosis [D72.829] Intractable abdominal pain [R10.9] Abdominal pain SIRS Patient presented to ED with complaints of abdominal pain, nausea and vomiting Patient has a history of persistent recurrent abdominal pain WBC 14.7 Patient tachycardic upon arrival No known infection at this time Lipase 34 ESR 52 CRP 2.22 Lactic Acid - pending Blood culture x2 ordered UA revealed 8 WBC and few bacteria CT abdomen and pelvis described above Chest xray revealed no acute findings Consider GI consult Trend ESR and CRP Urine culture pending IV/PO pain medication as needed for pain management Monitor CBC daily Patient on Trulicity weekly which has had a history of causing nausea and vomiting in patient. Patient recently had dosage decreased by PCP Renal Stones CT abd+pelvis revealed: at least one medullary calcification versus urinary tract stone in the right kidney. There is a small nonobstructive left renal stone is well. No left hydronephrosis. Strain urine Monitor for urine retention Diabetes Mellitus Hemoglobin A1c 09/20/22 8.8% Patient on Trulicity 4.5 mg SQ weekly -Hold while inpatient Humalog mix 75/25 60 units SQ in AM and 55 units SQ in PM Patient with poor oral intake will half insulin doses and titrate as clinically indicated ACHS blood glucose monitoring ACHS sliding scale insulin Hypoglycemic protocol Diabetic diet as tolerated Hypertension BP stable elevated upon arrival to ED Resume home medications with holding parameters Monitor vital signs Stable co morbidities contributing to high complexity of care HLD Anxiety Continue home medications as appropriate unless contraindicated or mentioned above Code Status: Full Code DVT prophylaxis: SQ heparin Consults:n/a Designated family contact / POA: Contact Name Home Phone Work Phone Mobile Phone Relationship to Patient Contact information marked private? ESTEFANIAHONORIO [phone] Daughter No Ana Coronel [phone] Mother No FredisCali [phone] Spouse No Admitted from: Home Expect to discharge to:Home Expected time to discharge:1-2 days Barriers to Discharge: Clinical improvement Advanced Care planning I spent greater than 16 minutes with the pt discussing the medical plan of care; as well as his advanced directives. Pt states, in the event of a cardiac or respiratory arrest; he would like providers TO ATTEMPT CPR,ACLS, and intubation/mechanical ventilation should it be necessary This document was dictated using the voice recognition software. Despite extreme caution as such itmay contain words and phrases that differ from truly dictated and do not reflect what was actually dictated as the physician creating the note is not present as a professional 3d designer. this may occasionally confer an unintended meaning. Please reach out to provider so rectifications can bemade. JESSICA SALCEDO 10/12/22 Cosigned by Janelle Pimentel DO at 10/12/2022 7:03 AM CDT Associated attestation - Janelle Pimentel DO - 10/12/2022 7:03 AM CDT I have seen and examined the patient, and discussed the plan of care with June Leonard PLANE TENDER. I reviewed her note and agree with the findings and plan of care, as above. Janelle Pimentel DO 10/12/2022 7:03 AM documented in this encounter Nursing Notes * Aarti Moore RN - 10/11/2022 10:36 PM CDT Received patient awake and alert x4 and on room air. This RN educated patient about enema. Patient declining enema at this time and states, I do have issues have a bowel movement and take linzess, but I do not want to take an enema right now. documented in this encounter ED Notes * CYNTHIA Santos - 10/11/2022 4:43 PM CDT ED NOTE Chief Complaint Chief Complaint Patient presents with Vomiting Abdominal Pain History of Present Illness 52-year-old female with history of type 2 diabetes presenting to emergency department for evaluation of nausea vomiting that is increased throughout the day. Patient reports symptoms started this morning after eating oatmeal and drinking 1 soda with tea. Reports she did have some increased bloatinglast night. Reports she has been having constipation over the past week with no relief with her Linzess. Associate with generalized abdominal pain. Patient reports she was seen on 09/29 in this emergency department for similar symptoms and had normal work-up. Denies blood in stools, hematemesis, fever, chills, difficulty breathing or difficulty urinating. Medical History ALLERGIES: Review of patient's allergies indicates: Allergen Reactions Fish Oil Unknown Amoxicillin Rash Penicillins Rash MEDICATIONS: Prior to Admission medications Medication Sig Start Date End Date Taking? Authorizing Provider amLODIPine (NORVASC) 10 MG tablet Take 1 tablet by mouth once daily Patient taking differently: Take 1 tablet (10 mg total) by mouth nightly at bedtime. 08/07/22 Yes Abiodun Segura II, MD dulaglutide (TRULICITY) 4.5 MG/0.5ML injection (PEN) Inject 4.5 mg into the skin once a week. Indications: Diabetes Patient taking differently: Inject 4.5 mg into the skin once a week. Indications: Diabetes 09/20/22 Yes Abiodun Segura II, MD HUMALOG MIX 75/25 (75-25) 100 UNIT/ML Suspension INJECT 60 UNITS SUBCUTANEOUSLY ONCE DAILY IN THE MORNING THEN 55 ONCE DAILY IN THE EVENING Patient taking differently: Inject 55-65 Units into the skin see administration instructions. INJECT 65 UNITS SUBCUTANEOUSLY ONCE DAILY IN THE MORNING THEN 55 ONCE DAILY IN THE EVENING 08/17/22 Yes Abiodun Segura II, MD lisinopril (PRINIVIL) 20 MG tablet Take 1 tablet (20 mg total) by mouth every evening. Indications:hypertension 09/09/22 09/09/23 Yes Sofy Acevedo MD simvastatin (ZOCOR) 40 MG tablet TAKE 1 TABLET BY MOUTH AT BEDTIME Patient taking differently: Take 1 tablet (40 mg total) by mouth nightly at bedtime. 10/04/21 Yes Abiodun Segura II, MD venlafaxine XR (EFFEXOR-XR) 37.5 MG 24 hr capsule Take 1 capsule (37.5 mg total) by mouth daily. Patient taking differently: Take 1 capsule (37.5 mg total) by mouth nightly at bedtime. 09/20/22 Yes Abiodun Segura II, MD PAST MEDICAL HISTORY: Past Medical History: Diagnosis Date Arthritis Charcot foot due to diabetes mellitus (HHS/HCC) ([facility]/HCC) LEFT FOOT Constipation COVID-19 Diabetes mellitus (HHS/HCC) [...] year Drug use: No Review of Systems As stated in HPI Physical Exam Filed Vitals: 10/11/22 2030 10/11/22 2100 10/11/22 2130 10/11/22 2222 BP: (!) 164/98 138/88 134/85 131/87 Pulse: 88 Resp: 19 Temp: 97.9 ??F (36.6 ??C) TempSrc: Oral SpO2: 100% 97% 98% 100% Weight: Height: Physical Exam Vitals and nursing note reviewed. Constitutional: General: She is not in acute distress. Appearance: She is well-developed. HENT: Head: Normocephalic. Nose: Nose normal. Eyes: Conjunctiva/sclera: Conjunctivae normal. Pulmonary: Effort: Pulmonary effort is normal. No respiratory distress. Abdominal: General: There is no distension. Palpations: Abdomen is soft. Tenderness: There is no guarding. Musculoskeletal: Cervical back: Normal range of motion and neck supple. Skin: General: Skin is warm and dry. Neurological: Mental Status: She is alert and oriented to person, place, and time. Psychiatric: Behavior: Behavior normal. Thought Content: Thought content normal. Judgment: Judgment normal. 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1970 Requested By: TRE CHUNG Order Number: [id number] Reading MD: Measurements Intervals [place] Rate: 98 P: 46 MT: 167 QRS: 17 QRSD: 77 T: 23 QT: 329 QTc: 422 Interpretive Statements SINUS RHYTHM WITH OCCASIONAL VENTRICULAR PREMATURE COMPLEXES NONSPECIFIC T-WAVE ABNORMALITY Compared to ECG 09/29/2022 20:57:16 No significant changes LABORATORY STUDIES: Results for orders placed or performed during the hospital encounter of 10/11/22 COMPREHENSIVE METABOLIC PANEL Result Value Ref Range GLUCOSE 161 (H) 70 - 99 MG/DL BUN 20 (H) 7 - 18 MG/DL CREATININE S/P/B 1.04 (H) 0.55 - 1.02 MG/DL SODIUM S/P/B 139 136 - 145 MMOL/L POTASSIUM S/P/B 4.2 3.5 - 5.1 MMOL/L CHLORIDE S/P/B 105 100 - 108 MMOL/L CO2 25.4 21 - 32 MMOL/L CALCIUM S/P/B 9.9 8.5 - 10.1 MG/DL BILIRUBIN TOTAL S/P/B 0.7 0.2 - 1.2 MG/DL TOTAL PROTEIN S/P/B 9.4 (H) 6.4 - 8.2 G/DL ALBUMIN S/P/B 3.7 3.4 - 5.0 G/DL AST 28 15 - 37 U/L ALT 28 14 - 55 U/L ALKALINE PHOSPHATASE S/P/B 145 (H) 50 - 136 U/L ANION GAP 8.6 5 - 15 MMOL/L BUN CREATININE RATIO 19.2 6 - 26 A/G RATIO 0.6 (L) 1.0 - 2.0 RATIO GFR ESTIMATE 65 (L) >90 ML/MIN/1.73 M2 LIPASE Result Value Ref Range LIPASE 34 13 - 75 UNITS/L TROPONIN, QUANT Result Value Ref Range TROPONIN I HIGH SENSITIVITY 6 <54 ng/L URINALYSIS Result Value Ref Range Specimen Type URINE CLEAN CATCH COLOR (U) LIGHT YELLOW TRANSPARENCY CLEAR SPECIFIC GRAVITY (U) 1.013 1.001 - 1.030 U PH 5.5 5.0 - 9.0 LEUKOCYTES (U) NEGATIVE NEGATIVE NITRITES NEGATIVE NEGATIVE PROTEIN RANDOM (U) 200 (H) <30 MG/DL GLUCOSE (U) 30 (A) NORMAL MG/DL KETONES (U) NEGATIVE NEGATIVE MG/DL UROBILINOGEN NORMAL NORMAL MG/DL BILIRUBIN (U) NEGATIVE NEGATIVE MG/DL BLOOD (U) NEGATIVE NEGATIVE CULTURE & SENSITIVITY INDICATED? SPECIMEN SETUP FOR CULTURE MUCUS RARE /LPF WBC/HPF 8 (H) <6 /HPF RBC/HPF 2 <6 /HPF BACTERIA (U) FEW (A) NONE /HPF SQUAMOUS EPITHELIALS FEW /HPF CBC W/DIFF AUTOMATED Result Value Ref Range WBC 14.7 (H) 4.5 - 11.0 x10'3/uL RBC 4.09 (L) 4.20 - 5.40 x10'6/uL HGB 12.3 12.0 - 16.0 G/DL HCT 36.5 (L) 38.0 - 48.0 % MCV 89.2 81.0 - 99.0 FL MCH 30.1 27.0 - 31.0 PG MCHC 33.7 32.0 - 36.0 G/DL RDW 13.1 11.5 - 14.5 % PLT 300 130 - 400 x10'3/uL MPV 11.4 9.3 - 12.2 FL DIFFERENTIAL TYPE AUTOMATED DIFFERENTIAL NEUTROPHILS 82.2 % LYMPHOCYTES 13.0 % MONOCYTES 3.9 % EOSINOPHILS 0.3 % BASOPHILS 0.2 % IMMATURE GRANS 0.4 % ABS. NEUTROPHILS TOTAL 12.09 (H) 1.80 - 7.70 x10'3/uL ABS. LYMPHOCYTES 1.91 1.00 - 4.80 x10'3/uL ABS. MONOCYTES 0.57 0.24 - 0.86 x10'3/uL ABS. EOSINOPHILS 0.05 0.04 - 0.36 x10'3/uL ABS. BASOPHILS 0.03 0.01 - 0.08 x10'3/uL ABS. IMMATURE GRANULOCYTES 0.06 0.00 - 0.49 x10'3/uL SED RATE, ERYTHROCYTE (ESR) Result Value Ref Range ESR 52 (H) <30 MM/HR C-REACTIVE PROTEIN Result Value Ref Range C-REACTIVE PROTEIN 2.22 (H) <0.29 mg/dL POCT glucose Result Value Ref Range GLUCOSE POC 138 (H) 70 - 99 mg/dL IMAGING STUDIES XR CHEST PORTABLE Final Result by User, [id number] (10/12 2219) CLINICAL HISTORY: Leukocytosis COMPARISON: 09/29/2022 TECHNIQUE: AP Portable View FINDINGS: Lungs are clear. No pneumothorax or pleural effusions evident. The cardiac silhouette, mediastinal contours, and pulmonary vessels appear within normal limits. No acute osseous abnormality. IMPRESSION: No acute findings. Referred By: Interpreted By: John Campos, 10/11/2022 10:[address] ABD+PEL W IV CON ONLY Final Result by User, [email or web address] (10/11 1936) EXAMINATION: CT ABD+PEL W CON CLINICAL HISTORY: [...] Image Gently techniques. FINDINGS: Liver is negative. Benign splenic calcifications. Spleen is otherwise negative. Gallbladder is negative. Pancreas is negative. Adrenal glands are negative. Stable abnormal appearance of the right kidney with diffuse dilatation of the renal calyces and mild dilatation of the right renal pelvis. There is a least one medullary calcification versus urinary tract stone in the right kidney. There is a small nonobstructive left renal stone is well. No left hydronephrosis. Abdominal aorta normal caliber with atherosclerotic ectasia. Bladder is unremarkable. Calcified pelvic phleboliths. Hysterectomy. [...] By: Arley Gastelum MD, 10/11/2022 7:26 PM ED Course / Medical Decision Making MDM Amount and/or Complexity of Data Reviewed Clinical lab tests: ordered and reviewed Tests in the radiology section of CPT??: ordered and reviewed Labs show mild leukocytosis otherwise grossly unremarkable. CT with no evidence of acute findings. Patient continues to have abdominal pain with the nausea and vomiting. Reports minimal relief with the morphine. Given mild leukocytosis and continued abdominal pain we will plan for observation for further evaluation of her abdominal pain. Discussed with hospitalist, Dr. Gomez who agrees with plan . Medications morphine injection 1 mg (has no administration in time range) naLOXone (NARCAN) injection 0.4 mg (has no administration in time range) glucose oral gel 32-64 mL (has no administration in time range) dextrose 10 % bolus infusion 125-250 mL (has no administration in time range) glucagon injection 1 mg (has no administration in time range) sodium chloride 0.9% bolus infusion 1,000 mL (0 mLs Intravenous Infusion Stop Time 10/11/221952) morphine injection 4 mg (4 mg Intravenous Given 10/11/221816) ondansetron (ZOFRAN) injection 4 mg (4 mg Intravenous Given 10/11/221813) famotidine (PF) (PEPCID) injection 20 mg (20 mg Intravenous Given 10/11/221815) iopamidol (ISOVUE-370) 76 % injection 100 mL (100 mLs Intravenous Given 10/11/221845) morphine injection 4 mg (4 mg Intravenous Given 10/11/221952) dicyclomine (BENTYL) tablet 20 mg (20 mg Oral Given 10/11/222209) metoclopramide (REGLAN) injection 10 mg (10 mg Intravenous Given 10/11/222210) diphenhydrAMINE (BENADRYL) injection 25 mg (25 mg Intravenous Given 10/11/222210) Clinical Impression Intractable abdominal pain (Primary) Leukocytosis Current Discharge Medication List Disposition: Admit Follow-Up: No follow-up provider specified. CYNTHIA Santos 10/11/2022 CYNTHIA Santos 10/11/222315 Cosigned by Enrrique Jara MD at 11/04/2022 5:55 AM CDT * Payam Walker RN - 10/11/2022 4:06 PM CDT Bed: 01 Expected date: Expected time: Means of arrival: Comments: Fredis * CYNTHIA Doyle - 10/11/2022 2:16 PM CDT [place] [place] EMERGENCY DEPARTMENT ENCOUNTER Medical Screening Examination 10/11/22 2:16 PM Chief Complaint : Vomiting and Abdominal Pain HPI : Lena Youngblood is a 52-year-old female who has hx of has a past medical history of Arthritis, Charcot foot due to diabetes mellitus (HHS/HCC) (CMS/HCC), Constipation, COVID-19, Diabetes mellitus (HHS/HCC) (CMS/HCC), Diabetic neuropathy (HHS/HCC) (CMS/HCC), High cholesterol, Hypertension, Renal disorder, UTI (urinary tract infection), and Vision decreased. presents with acute onset periumbilical abdominal pain that began this morning. Symptoms are constant, severe in severity. Described as sharp/stabbing. Reports associated nausea and vomiting. Denies fevers, chills, constipation, diarrhea, urinary symptoms, flank pain, vaginal bleeding or discharge Vital Signs: Filed Vitals: 10/11/22 1403 BP: (!) 142/112 Pulse: (!) 110 Resp: 20 Temp: 97 ??F (36.1 ??C) TempSrc: Temporal SpO2: 100% Weight: 85.3 kg (188 lb) Height: 5' 6 (1.676 m) Physical exam: A brief physical exam was completed to facilitate/expedite patient care. [place] findings include: Heart: Tachycardic with regular rhythm Lungs: CTA BL Abdomen: Soft, tender to the epigastrium and periumbilical area with guarding. Please note: Pt's physical exam is limited with pt being fully clothed and upright in triage. Plan: Labs & Imaging was ordered to facilitate patient care. I have notified the emergency department staff of the pt's critical status and the need for the next available room. CYNTHIA Doyle 10/11/22 1418 Cosigned by Enrrique Jara MD at 11/04/2022 5:54 AM CDT * Abby Delacruz RN - 10/11/2022 2:12 PM CDT Pt reports mid abd pain and vomiting since eating oatmeal this morning. Denies fevers/chills and diarrhea. Tenderness on palp. Pt tearful during triage. documented in this encounter Plan of Treatment Upcoming Encounters Date Type Department Care Team (Late st Contact Info) Description 03/14/2024 11:45 AM REIMBURSEMENT SPECIALIST Office Visit [facility] [phone] Marvin Mckeon MD [address] [place], [place] [id number] 03/20/2024 11:30 AM REIMBURSEMENT SPECIALIST Office Visit [facility] [place] [address] [place] [phone] Abiodun Segura II, MD [address] [place], [place] [id number] documented as of this encounter Goals Goal Patient Goal Type Associated Problems Recent Progress Patient-Stated? Author Family - family caregiver with be involved in care transitions and discharge planning Lifestyle No Natty Cheek, RN documented as of this encounter Procedures Procedure Name Priority Date/Time Associated Diagnosis Comments POCT GLUCOSE - CORREA DOCKED DEVICE Routine 10/20/2022 11:55 AM CDT BASIC METABOLIC PANEL Routine 10/20/2022 8:55 AM CDT POCT GLUCOSE - CORREA DOCKED DEVICE Routine 10/20/2022 6:25 AM CDT CBC W/DIFF AUTOMATED Routine 10/20/2022 5:00 AM CDT POCT GLUCOSE - CORREA DOCKED DEVICE Routine 10/19/2022 3:58 PM CDT POCT GLUCOSE - CORREA DOCKED DEVICE Routine 10/19/2022 11:57 AM CDT URINALYSIS WI REFLEX TO CULTURE Routine 10/19/2022 4:50 AM CDT COMPREHENSIVE METABOLIC PANEL Routine 10/19/2022 3:44 AM CDT CBC W/DIFF AUTOMATED Routine 10/19/2022 3:44 AM CDT POCT GLUCOSE - CORREA DOCKED DEVICE Routine 10/18/2022 4:35 PM CDT POCT GLUCOSE - CORREA DOCKED DEVICE Routine 10/18/2022 11:31 AM CDT US ABD LIMITED Today 10/18/2022 10:45 AM CDT COMPREHENSIVE METABOLIC PANEL Routine 10/18/2022 5:07 AM CDT CBC W/DIFF AUTOMATED Routine 10/18/2022 5:07 AM CDT URINALYSIS WI REFLEX TO CULTURE Routine 10/17/2022 10:30 PM CDT POCT GLUCOSE - CORREA DOCKED DEVICE Routine 10/17/2022 4:47 PM CDT POCT GLUCOSE - CORREA DOCKED DEVICE Routine 10/17/2022 10:43 AM CDT BASIC METABOLIC PANEL Routine 10/17/2022 6:00 AM CDT CBC W/DIFF AUTOMATED Routine 10/17/2022 6:00 AM CDT UPPER GI ENDOSCOPY,BIOPSY 10/16/2022 6:24 PM CDT AP POCT GLUCOSE - CORREA DOCKED DEVICE Routine 10/16/2022 4:07 PM CDT POCT GLUCOSE - CORREA DOCKED DEVICE Routine 10/16/2022 10:28 AM CDT POCT GLUCOSE - CORREA DOCKED DEVICE Routine 10/16/2022 7:19 AM CDT POCT GLUCOSE - CORREA DOCKED DEVICE Routine 10/15/2022 9:07 PM CDT POCT GLUCOSE - CORREA DOCKED DEVICE Routine 10/15/2022 4:02 PM CDT POCT GLUCOSE - CORREA DOCKED DEVICE Routine 10/15/2022 11:53 AM CDT POCT GLUCOSE - CORREA DOCKED DEVICE Routine 10/15/2022 5:22 AM CDT COMPREHENSIVE METABOLIC PANEL Routine 10/15/2022 5:15 AM CDT CBC W/DIFF AUTOMATED Routine 10/15/2022 5:15 AM CDT POCT GLUCOSE - CORREA DOCKED DEVICE Routine 10/14/2022 8:51 PM CDT POCT GLUCOSE - CORREA DOCKED DEVICE Routine 10/14/2022 4:02 PM CDT POCT GLUCOSE - CORREA DOCKED DEVICE Routine 10/14/2022 11:38 AM CDT COMPREHENSIVE METABOLIC PANEL Routine 10/14/2022 4:34 AM CDT CBC W/DIFF AUTOMATED Routine 10/14/2022 4:34 AM CDT POCT GLUCOSE - CORREA DOCKED DEVICE Routine 10/13/2022 8:36 PM CDT POCT GLUCOSE - CORREA DOCKED DEVICE Routine 10/13/2022 4:18 PM CDT POCT GLUCOSE - CORREA DOCKED DEVICE Routine 10/13/2022 11:20 AM CDT SED RATE, ERYTHROCYTE (ESR) Routine 10/13/2022 5:15 AM CDT COMPREHENSIVE METABOLIC PANEL Routine 10/13/2022 5:15 AM CDT C-REACTIVE PROTEIN Routine 10/13/2022 5: 15 AM CDT CBC W/DIFF AUTOMATED Routine 10/13/2022 5:15 AM CDT POCT GLUCOSE - CORREA DOCKED DEVICE Routine 10/12/2022 10:18 PM CDT POCT GLUCOSE - CORREA DOCKED DEVICE Routine 10/12/2022 9:19 PM CDT POCT GLUCOSE - CORREA DOCKED DEVICE Routine 10/12/2022 8:30 PM CDT POCT GLUCOSE - CORREA DOCKED DEVICE Routine 10/12/2022 4:48 PM CDT POCT GLUCOSE - CORREA DOCKED DEVICE Routine 10/12/2022 11:32 AM CDT POCT GLUCOSE - CORREA DOCKED DEVICE Routine 10/12/2022 5:49 AM CDT COMPREHENSIVE METABOLIC PANEL Routine 10/12/2022 4:50 AM CDT CBC W/DIFF AUTOMATED Routine 10/12/2022 4:50 AM CDT CULTURE, BACTERIA, BLOOD STAT 10/12/2022 1:04 AM CDT POCT GLUCOSE - CORREA DOCKED DEVICE Routine 10/11/2022 10:43 PM CDT XR CHEST PORTABLE STAT 10/11/2022 10: 15 PM CDT C-REACTIVE PROTEIN Routine 10/11/2022 9: [address] ABD+PEL W CON STAT 10/11/2022 6:45 PM CDT SED RATE, ERYTHROCYTE (ESR) Routine 10/11/2022 6:26 PM CDT CBC W/DIFF AUTOMATED Routine 10/11/2022 6:00 PM CDT COMPREHENSIVE METABOLIC PANEL STAT 10/11/2022 5:40 PM CDT TROPONIN, QUANT STAT 10/11/2022 5:40 PM CDT LIPASE STAT 10/11/2022 5:40 PM CDT HC URINALYSIS AUTO W/O MICRO STAT 10/11/2022 4:08 PM CDT URINE BACTERIA CULTURE Routine 4:08 PM CDT ECG 12-LEAD Routine 10/11/2022 3:39 PM CDT documented in this encounter Results * (ABNORMAL) POCT glucose (10/20/2022 11:55 AM CDT) GLUCOSE POC 161(H) 70 - 99 mg/dL 11/01/2022 11:01 AM CDT [facility] 10/20/2022 11:5 5 AM CDT Farrukh Reed DO POCT ORDERABLES - DEVICE Final R esult [facility] [address] [place] [address], [place] [phone] * (ABNORMAL) BASIC METABOLIC PANEL (10/20/2022 8:55 AM CDT) [facility] GLUCOSE 122(H) 70 - 99 MG/DL 11/17/2022 9:59 AM CDT [facility] BUN 18 7 - 18 MG/DL 11/17/2022 9:59 AM CDT [facility] CREATININE S/P/B 1.10(H) 0.55 - 1.02 MG/DL 11/17/2022 9:59 AM CDT [facility] SODIUM S/P/B 141 136 - 145 MMOL/L 11/17/2022 9:59 AM CDT [facility] POTASSIUM S/P/B 4.6 3.5 - 5.1 MMOL/L 11/17/2022 9:59 AM CDT [facility] CHLORIDE S/P/B 110(H) 100 - 108 MMOL/L 11/17/2022 9:59 AM CDT [facility] CO2 27.4 21 - 32 MMOL/L 11/17/2022 9:59 AM T [facility] CALCIUM S/P/B 8.5 8.5 - 10.1 MG/DL 11/17/2022 9:59 AM T [facility] ANION GAP 3.6(L) 5 - 15 MMOL/L 11/17/2022 9:59 AM T [facility] BUN CREATININE RATIO 16.4 6 - 26 11/17/2022 9:59 AM T [facility] GFR ESTIMATE 61(L) >90 ML/MIN/1.7 3 M2 11/17/2022 9:59 AM T [facility] Comment: NOTE: eGFR is not calculated for patients <18 years of age. This is an estimated GFR calculation using the new CKD EPI creatinine equation without race and so does not require a correction factor for race. This estimated GFR should not be used for calculating drug doses. 10/20/2022 8:55 AM CDT Ramesh D Isacc DO LABORATORY Final Resul t Performing Organization Address City/[facility]/ZIP Co de Phone Number [facility] [address] [place] [address], * POCT glucose (10/20/2022 6:25 AM CDT) GLUCOSE POC 99 70 - 99 mg/dL 11/01/2022 11:01 AM CDT [facility] 10/20/2022 6:25 AM CDT Farrukh Reed DO POCT ORDERABLES - DEVICE Final R esult Performing Organization Address City/[facility] Co de Phone Number [facility] [address] [place] [address], [place] [phone] * (ABNORMAL) CBC W/DIFF AUTOMATED (10/20/2022 5:00 AM CDT) WBC 8.8 4.5 - 11.0 x10'3/uL 11/18/2022 1:27 PM CDT [facility] RBC 3.39(L) 4.20 - 5.40 x10'6/uL 11/18/2022 1:27 PM CDT [facility] HGB 10.2(L) 12.0 - 16.0 G/DL 11/18/2022 1:27 PM CDT [facility] HCT 32.4(L) 38.0 - 48.0 % 11/18/2022 1:27 PM CDT [facility] MCV 95.6 81.0 - 99.0 FL 11/18/2022 1:27 PM CDT [facility] MCH 30.1 27.0 - 31.0 PG 11/18/2022 1:27 PM CDT [facility] MCHC 31.5(L) 32.0 - 36.0 G/DL 11/18/2022 1:27 PM CDT [facility] RDW 14.7(H) 11.5 - 14.5 % 11/18/2022 1:27 PM CDT [facility] PLT 259 130 - 400 x10'3/uL 11/18/2022 1:27 PM CDT [facility] MPV 11.6 9.3 - 12.2 FL 11/18/2022 1:27 PM CDT [facility] DIFFERENTIAL TYPE AUTOMATED DIFFERENTIAL 11/18/2022 1:27 PM CDT [facility] NEUTROPHILS % 46.7 % 11/18/2022 1:27 PM CDT [facility] LYMPHOCYTES % 45.4 % 11/18/2022 1:27 PM CDT [facility] MONOCYTES % 5.2 % 11/18/2022 1:27 PM CDT [facility] EOSINOPHILS 1.8 % 11/18/2022 1:27 PM CDT [facility] BASOPHILS 0.7 % 11/18/2022 1:27 PM CDT [facility] IMMATURE GRANS % 0.2 % 11/19/19 1:27 PM CDT [facility] ABS. NEUTROPHILS TOTAL 4.11 1.80 - 7.70 x10'3/uL 11/18/2022 1:27 PM CDT [facility] ABS. LYMPHOCYTES 4.00 1.00 - 4.80 x10'3/uL 11/18/2022 1:27 PM CDT [facility] ABS. MONOCYTES 0.46 0.24 - 0.86 x10'3/uL 11/18/2022 1:27 PM CDT [facility] ABS. EOSINOPHILS 0.16 0.04 - 0.36 x10'3/uL 11/18/2022 1:27 PM CDT [facility] ABS. BASOPHILS 0.06 0.01 - 0.08 x10'3/uL 11/18/2022 1:27 PM CDT [facility] ABS. IMMATURE GRANULOCYTES 0.02 0.00 - 0.49 x10'3/uL 11/18/2022 1:27 PM CDT [facility] 10/20/2022 5:00 AM CDT Ramesh Dexter DO LABORATORY Final Resul t Performing Organization Address City/[facility]/ZIP Co de Phone Number [facility] [address] [place] [address], [place] [phone] * (ABNORMAL) POCT glucose (10/19/2022 3:58 PM CDT) GLUCOSE POC 130(H) 70 - 99 mg/dL 11/01/2022 11:19 AM CDT [facility] 10/19/2022 3:58 PM CDT Farrukh Reed DO POCT ORDERABLES - DEVICE Final R esult [facility] [address] [place] [address], [place] [phone] * (ABNORMAL) POCT glucose (10/19/2022 11:57 AM CDT) GLUCOSE POC 153(H) 70 - 99 mg/dL 11/01/2022 4:44 PM CDT [facility] 10/19/2022 11:5 7 AM CDT Farrukh Reedely CAMPOS POCT ORDERABLES - DEVICE Final R esult [facility] [address] [place] [address], * (ABNORMAL) URINALYSIS WI REFLEX TO CULTURE (10/19/2022 4:50 AM CDT) SPECIMEN TYPE URINE CLEAN CATCH 11/17/2022 2:13 PM CDT [facility] COLOR (U) LIGHT YELLOW 11/17/2022 9:57 AM CDT [facility] TRANSPARENCY CLEAR 11/17/2022 9:57 AM CDT [facility] SPECIFIC GRAVITY (U) 1.012 1.001 - 1.030 11/17/2022 9:57 AM CDT [facility] U PH 6.0 5.0 - 9.0 11/17/2022 9:57 AM CDT [facility] LEUKOCYTES (U) NEGATIVE NEGATIVE 11/17/2022 9:57 AM CDT [facility] NITRITES NEGATIVE NEGATIVE 11/17/2022 9:57 AM CDT [facility] PROTEIN RANDOM (U) NEGATIVE <30 MG/DL 11/17/2022 9:57 AM CDT [facility] GLUCOSE (U) NORMAL NORMAL MG/DL 11/17/2022 9:57 AM CDT [facility] KETONES MG/DL (U) NEGATIVE NEGATIVE MG/DL 11/17/2022 9:57 AM CDT [facility] UROBILINOGEN NORMAL NORMAL MG/DL 11/17/2022 9:57 AM CDT [facility] BILIRUBIN (U) NEGATIVE NEGATIVE MG/DL 11/17/2022 9:57 AM CDT [facility] BLOOD (U) NEGATIVE NEGATIVE 11/17/2022 9:57 AM CDT [facility] CULTURE & SENSITIVITY INDICATED? CULTURE IS NOT INDICATED 11/17/2022 9:57 AM CDT [facility] RBC/HPF <1 <6 /HPF 11/17/2022 9:57 AM CDT [facility] WBC/HPF 3 <6 /HPF 11/17/2022 9:57 AM CDT [facility] BACTERIA (U) RARE(A) NONE /HPF 11/17/2022 9:57 AM CDT [facility] SQUAMOUS EPITHELIALS RARE /HPF 11/17/2022 9:57 AM CDT [facility] MUCUS RARE /LPF 11/17/2022 9:57 AM CDT [facility] 10/19/2022 4:50 AM CDT us Ramesh Dexter DO URINE ORDERABLES Final Resu lt [facility] [address] [place] [address], * (ABNORMAL) COMPREHENSIVE METABOLIC PANEL (10/19/2022 3:44 AM CDT) GLUCOSE 178(H) 70 - 99 MG/DL 11/17/2022 9:56 AM CDT [facility] BUN 22(H) 7 - 18 MG/DL 11/17/2022 9:56 AM CDT [facility] CREATININE S/P/B 1.28(H) 0.55 - 1.02 MG/DL 11/17/2022 9:56 AM CDT [facility] SODIUM S/P/B 137 136 - 145 MMOL/L 11/17/2022 9:56 AM CDT [facility] POTASSIUM S/P/B 4.2 3.5 - 5.1 MMOL/L 11/17/2022 9:56 AM CDT [facility] CHLORIDE S/P/B 106 100 - 108 MMOL/L 11/17/2022 9:56 AM CDT [facility] CO2 30.3 21 - 32 MMOL/L 11/17/2022 9:56 AM CDT [facility] CALCIUM S/P/B 8.5 8.5 - 10.1 MG/DL 11/17/2022 9:56 AM CDT [facility] BILIRUBIN TOTAL S/P/B 0.5 0.2 - 1.2 MG/DL 11/17/2022 9:56 AM T [facility] Comment: THIS ASSAY IS NOT RECOMMENDED FOR PATIENTS UNDERGOING TREATMENT WITH ELTROMBOPAG DUE TO THE POTENTIAL FOR FALSELY ELEVATED RESULTS. TOTAL PROTEIN S/P/B 7.4 6.4 - 8.2 G/DL 11/17/2022 9:56 AM CDT [facility] ALBUMIN S/P/B 2.8(L) 3.4 - 5.0 G/DL 11/17/2022 9:56 AM CDT [facility] AST 12(L) 15 - 37 U/L 11/17/2022 9:56 AM CDT [facility] ALT 21 14 - 55 U/L 11/17/2022 9:56 AM T [facility] ALKALINE PHOSPHATASE S/P/B 129 50 - 136 U/L 11/17/2022 9:56 AM CDT [facility] ANION GAP 0.7(L) 5 - 15 MMOL/L 11/17/2022 9:56 AM CDT [facility] BUN CREATININE RATIO 17.2 6 - 26 11/17/2022 9:56 AM CDT [facility] A/G RATIO 0.6(L) 1.0 - 2.0 RATIO 11/17/2022 9:56 AM CDT [facility] GFR ESTIMATE 51(L) >90 ML/MIN/1.7 3 M2 11/17/2022 9:56 AM CDT [facility] Comment: NOTE: eGFR is not calculated for patients <18 years of age. This is an estimated GFR calculation using the new CKD EPI creatinine equation without race and so does not require a correction factor for race. This estimated GFR should not be used for calculating drug doses. 10/19/2022 3:44 AM CDT us Ramesh Dexter DO LABORATORY Final Resul t [facility] [address] [place] [address], * (ABNORMAL) CBC W/DIFF AUTOMATED (10/19/2022 3:44 AM CDT) WBC 9.8 4.5 - 11.0 x10'3/uL 11/18/2022 1:22 PM CDT [facility] RBC 3.51(L) 4.20 - 5.40 x10'6/uL 11/18/2022 1:22 PM CDT [facility] HGB 10.6(L) 12.0 - 16.0 G/DL 11/18/2022 1:22 PM CDT [facility] HCT 32.4(L) 38.0 - 48.0 % 11/18/2022 1:22 PM CDT [facility] MCV 92.3 81.0 - 99.0 FL 11/18/2022 1:22 PM CDT [facility] MCH 30.2 27.0 - 31.0 PG 11/18/2022 1:22 PM CDT [facility] MCHC 32.7 32.0 - 36.0 G/DL 11/18/2022 1:22 PM CDT [facility] RDW 13.2 11.5 - 14.5 % 11/18/2022 1:22 PM CDT [facility] PLT 270 130 - 400 x10'3/uL 11/18/2022 1:22 PM CDT [facility] MPV 11.6 9.3 - 12.2 FL 11/18/2022 1:22 PM CDT [facility] DIFFERENTIAL TYPE AUTOMATED DIFFERENTIAL 11/18/2022 1:22 PM CDT [facility] NEUTROPHILS % 53.8 % 11/18/2022 1:22 PM CDT [facility] LYMPHOCYTES % 38.5 % 11/18/2022 1:22 PM CDT [facility] MONOCYTES % 6.0 % 11/18/2022 1:22 PM CDT [facility] EOSINOPHILS 1.0 % 11/18/2022 1:22 PM CDT [facility] BASOPHILS 0.4 % 11/18/2022 1:22 PM CDT [facility] IMMATURE GRANS % 0.3 % 11/19/19 1:22 PM CDT [facility] ABS. NEUTROPHILS TOTAL 5.25 1.80 - 7.70 x10'3/uL 11/18/2022 1:22 PM CDT [facility] ABS. LYMPHOCYTES 3.76 1.00 - 4.80 x10'3/uL 11/18/2022 1:22 PM CDT [facility] ABS. MONOCYTES 0.59 0.24 - 0.86 x10'3/uL 11/18/2022 1:22 PM CDT [facility] ABS. EOSINOPHILS 0.10 0.04 - 0.36 x10'3/uL 11/18/2022 1:22 PM CDT [facility] ABS. BASOPHILS 0.04 0.01 - 0.08 x10'3/uL 11/18/2022 1:22 PM CDT [facility] ABS. IMMATURE GRANULOCYTES 0.03 0.00 - 0.49 x10'3/uL 11/18/2022 1:22 PM CDT [facility] 10/19/2022 3:44 AM CDT Ramesh Dexter DO LABORATORY Final Resul t Performing Organization Address City/[facility] Co de Phone Number [facility] [address] [place] [address], [place] [phone] * (ABNORMAL) POCT glucose (10/18/2022 4:35 PM CDT) GLUCOSE POC 139(H) 70 - 99 mg/dL 11/01/2022 4:44 PM CDT [facility] 10/18/2022 4:35 PM CDT Farrukh Reed DO POCT ORDERABLES - DEVICE Final R esult [facility] [address] [place] [address], [place] [phone] * POCT glucose (10/18/2022 11:31 AM CDT) GLUCOSE POC 83 70 - 99 mg/dL 11/01/2022 4:16 PM CDT [facility] 10/18/2022 11:3 1 AM CDT Farrukh Reed DO POCT ORDERABLES - DEVICE Final R esult [facility] [address] [place] [address], [place] [phone] * [place] ABD LIMITED (10/18/2022 10:45 AM CDT) Anatomical Region Laterality Modality Abdomen Ultrasound 01/20/2023 11:2 5 AM REIMBURSEMENT SPECIALIST Impressions 01/20/2023 11:28 AM REIMBURSEMENT SPECIALIST IMPRESSION: 1. Partially imaged right-sided hydronephrosis. 2. Possible hepatic steatosis. The final report for your radiology exam was delayed due to a prolonged systemwide outage of the hospital information technology infrastructure. ??The necessary components to render a final report utilizing a secure and persistent connection to the hospital information technology infrastructure within the usual parameters as guided by current standards of care were significantly limited or unavailable. ??These components include but are not limited to: ??all images for the exam, medical grade display monitor, medical grade display software, image post-processing software, prior examinations, prior reports, access to your medical records, dictation software, and a DICOM signature to ensure validity. Ordered By: RAMESH DEXTER Interpreted By: Jeromy Leyva MD, 01/20/2023 11:25 AM Narrative 01/20/2023 11:28 AM REIMBURSEMENT SPECIALIST EXAMINATION: Limited abdomen ultrasound: RUQ CLINICAL HISTORY: Pain COMPARISON: None TECHNIQUE: An ultrasound examination of the RUQ was performed to assess grayscale appearance, color-flow characteristics and spectral doppler analysis. FINDINGS: Note: These images were only made available for my review on 01/20/2023 Liver: Somewhat increased hepatic echogenicity. No intrahepatic biliary ductal dilatation. No definite hepatic masses identified. Liver measures up to 15.6 cm at the right midclavicular line Pancreas: Partially visualized portions appear unremarkable echogenicity. Portal vein: Spectral analysis reveals patent hepatopetal flow. Gallbladder: No wall thickening, cholecystic fluid, stones or sludge. ??Negative sonographic Chow's sign. Common bile duct: Measures up to 3 mm. No distinct intraluminal stone. Right kidney: Partially visualized right-sided hydronephrosis. Other findings: No ascites. Procedure Note Jeromy Leyva MD - 01/20/2023 EXAMINATION: Limited abdomen ultrasound: RUQ CLINICAL HISTORY: Pain COMPARISON: None TECHNIQUE: An ultrasound examination of the RUQ was performed to assessgrayscale appearance, color-flow characteristics and spectral doppleranalysis. FINDINGS: Note: These images were only made available for my review on 01/20/2023 Liver: Somewhat increased hepatic echogenicity. No intrahepatic biliaryductal dilatation. No definite hepatic masses identified. Liver measuresup to 15.6 cm at the right midclavicular line Pancreas: Partially visualized portions appear unremarkableechogenicity. Portal vein: Spectral analysis reveals patent hepatopetal flow. Gallbladder: No wall thickening, cholecystic fluid, stones or sludge.Negative sonographic Chow's sign. Common bile duct: Measures up to 3 mm. No distinct intraluminal stone. Right kidney: Partially visualized right-sided hydronephrosis. Other findings: No ascites. IMPRESSION: 1. Partially imaged right-sided hydronephrosis. 2. Possible hepatic steatosis. The final report for your radiology exam was delayed due to a prolongedsystemwide outage of the hospital information technology infrastructure.The necessary components to render a final report utilizing a secure andpersistent connection to the hospital information technologyinfrastructure within the usual parameters as guided by current standardsof care were significantly limited or unavailable. These componentsinclude but are not limited to: all images for the exam, medical gradedisplay monitor, medical grade display software, image post-processingsoftware, prior examinations, prior reports, access to your medicalrecords, dictation software, and a DICOM signature to ensure validity. Ordered By: RAMESH DEXTER Interpreted By: Jeromy Leyva MD, 01/20/2023 11:25 AM us Ramesh Dexter DO ULTRASOUND Final Resul t * (ABNORMAL) COMPREHENSIVE METABOLIC PANEL (10/18/2022 5:07 AM CDT) [facility] GLUCOSE 79 70 - 99 MG/DL 11/17/2022 9:55 AM CDT [facility] BUN 23(H) 7 - 18 MG/DL 11/17/2022 9:55 AM CDT [facility] CREATININE S/P/B 1.37(H) 0.55 - 1.02 MG/DL 11/17/2022 9:55 AM CDT [facility] SODIUM S/P/B 135(L) 136 - 145 MMOL/L 11/17/2022 9:55 AM CDT [facility] POTASSIUM S/P/B 4.2 3.5 - 5.1 MMOL/L 11/17/2022 9:55 AM CDT [facility] CHLORIDE S/P/B 102 100 - 108 MMOL/L 11/17/2022 9:55 AM CDT [facility] CO2 31.6 21 - 32 MMOL/L 11/17/2022 9:55 AM CDT [facility] CALCIUM S/P/B 9.2 8.5 - 10.1 MG/DL 11/17/2022 9:55 AM CDT [facility] BILIRUBIN TOTAL S/P/B 0.4 0.2 - 1.2 MG/DL 11/17/2022 9:55 AM CDT [facility] Comment: THIS ASSAY IS NOT RECOMMENDED FOR PATIENTS UNDERGOING TREATMENT WITH ELTROMBOPAG DUE TO THE POTENTIAL FOR FALSELY ELEVATED RESULTS. TOTAL PROTEIN S/P/B 8.6(H) 6.4 - 8.2 G/DL 11/17/2022 9:55 AM CDT [facility] ALBUMIN S/P/B 3.4 3.4 - 5.0 G/DL 11/17/2022 9:55 AM CDT [facility] AST 19 15 - 37 U/L 11/17/2022 9:55 AM CDT [facility] ALT 23 14 - 55 U/L 11/17/2022 9:55 AM CDT [facility] ALKALINE PHOSPHATASE S/P/B 141(H) 50 - 136 U/L 11/17/2022 9:55 AM CDT [facility] ANION GAP 1.4(L) 5 - 15 MMOL/L 11/17/2022 9:55 AM CDT [facility] BUN CREATININE RATIO 16.8 6 - 26 11/17/2022 9:55 AM CDT [facility] A/G RATIO 0.7(L) 1.0 - 2.0 RATIO 11/17/2022 9:55 AM CDT [facility] GFR ESTIMATE 47(L) >90 ML/MIN/1.7 3 M2 11/17/2022 9:55 AM CDT [facility] Comment: NOTE: eGFR is not calculated for patients <18 years of age. This is an estimated GFR calculation using the new CKD EPI creatinine equation without race and so does not require a correction factor for race. This estimated GFR should not be used for calculating drug doses. 10/18/2022 5:07 AM CDT us Ramesh Dexter DO LABORATORY Final Resul t [facility] [address] [place] [address], [place] [phone] * (ABNORMAL) CBC W/DIFF AUTOMATED (10/18/2022 5:07 AM CDT) WBC 9.5 4.5 - 11.0 x10'3/uL 11/17/2022 6:08 PM CDT [facility] RBC 4.08(L) 4.20 - 5.40 x10'6/uL 11/17/2022 6:08 PM CDT [facility] HGB 12.5 12.0 - 16.0 G/DL 11/17/2022 6:08 PM CDT [facility] HCT 37.2(L) 38.0 - 48.0 % 11/17/2022 6:08 PM CDT [facility] MCV 91.2 81.0 - 99.0 FL 11/17/2022 6:08 PM CDT [facility] MCH 30.6 27.0 - 31.0 PG 11/17/2022 6:08 PM CDT [facility] MCHC 33.6 32.0 - 36.0 G/DL 11/17/2022 6:08 PM CDT [facility] RDW 13.0 11.5 - 14.5 % 11/17/2022 6:08 PM CDT [facility] PLT 291 130 - 400 x10'3/uL 11/17/2022 6:08 PM CDT [facility] MPV 11.3 9.3 - 12.2 FL 11/17/2022 6:08 PM CDT [facility] NEUTROPHILS % 63.0 % 11/17/2022 6:09 PM CDT [facility] LYMPHOCYTES % 30.0 % 11/17/2022 6:09 PM CDT [facility] MONOCYTES % 6.0 % 11/17/2022 6:09 PM CDT [facility] EOSINOPHILS 1.0 % 11/17/2022 6:09 PM CDT [facility] ABS. LYMPHOCYTES 2.85 1.00 - 4.80 x10'3/uL 11/17/2022 6:09 PM CDT [facility] ABS. NEUTROPHILS TOTAL 5.98 1.80 - 7.70 x10'3/uL 11/17/2022 6:09 PM CDT [facility] ABS. MONOCYTES 0.57 0.24 - 0.86 x10'3/uL 11/17/2022 6:09 PM CDT [facility] ABS. EOSINOPHILS 0.10 0.04 - 0.36 x10'3/uL 11/17/2022 6:09 PM CDT [facility] DIFFERENTIAL TYPE AUTOMATED DIFFERENTIAL 11/17/2022 6:09 PM CDT [facility] PLT EST. ADEQUATE 11/17/2022 6:09 PM CDT [facility] 10/18/2022 5:07 AM CDT Ramesh Dexter DO LABORATORY Final Resul t [facility] [address] [place] [id number], [place] [phone] * (ABNORMAL) URINALYSIS WI REFLEX TO CULTURE (10/17/2022 10:30 PM CDT) SPECIMEN TYPE URINE CLEAN CATCH 11/17/2022 2:08 PM CDT [facility] COLOR (U) LIGHT YELLOW 11/17/2022 9:54 AM CDT [facility] TRANSPARENCY CLEAR 11/17/2022 9:54 AM CDT [facility] SPECIFIC GRAVITY (U) 1.015 1.001 - 1.030 11/17/2022 9:54 AM CDT [facility] U PH 5.5 5.0 - 9.0 11/17/2022 9:54 AM CDT [facility] LEUKOCYTES (U) NEGATIVE NEGATIVE 11/17/2022 9:54 AM CDT [facility] NITRITES NEGATIVE NEGATIVE 11/17/2022 9:54 AM CDT [facility] PROTEIN RANDOM (U) 20 <30 MG/DL 11/17/2022 9:54 AM CDT [facility] GLUCOSE (U) NORMAL NORMAL MG/DL 11/17/2022 9:54 AM CDT [facility] KETONES MG/DL (U) NEGATIVE NEGATIVE MG/DL 11/17/2022 9:54 AM CDT [facility] UROBILINOGEN NORMAL NORMAL MG/DL 11/17/2022 9:54 AM CDT [facility] BILIRUBIN (U) NEGATIVE NEGATIVE MG/DL 11/17/2022 9:54 AM CDT [facility] BLOOD (U) NEGATIVE NEGATIVE 11/17/2022 9:54 AM T [facility] CULTURE & SENSITIVITY INDICATED? CULTURE IS NOT INDICATED 11/17/2022 9:54 AM CDT [facility] RBC/HPF 1 <6 /HPF 11/17/2022 9:54 AM CDT [facility] WBC/HPF 4 <6 /HPF 11/17/2022 9:54 AM T [facility] BACTERIA (U) FEW(A) NONE /HPF 11/17/2022 9:54 AM CDT [facility] SQUAMOUS EPITHELIALS RARE /HPF 11/17/2022 9:54 AM CDT [facility] MUCUS RARE /LPF 11/17/2022 9:54 AM T [facility] 10/17/2022 10:3 0 PM CDT us Ramesh Dexter DO URINE ORDERABLES Final Resu lt [facility] [address] [place] [address], [place] [phone] * (ABNORMAL) POCT glucose (10/17/2022 4:47 PM CDT) GLUCOSE POC 162(H) 70 - 99 mg/dL 11/01/2022 4:44 PM CDT [facility] 10/17/2022 4:47 PM CDT Farrukh Reed POCT ORDERABLES - DEVICE Final R esult [facility] [address] [place] [address], [place] [phone] * (ABNORMAL) POCT glucose (10/17/2022 10:43 AM CDT) GLUCOSE POC 62(L) 70 - 99 mg/dL 11/01/2022 4:44 PM CDT [facility] 10/17/2022 10:4 3 AM CDT Toimaria c Reed DO POCT ORDERABLES - DEVICE Final R esult [facility] [address] [place] [address], [place] [phone] * (ABNORMAL) CBC W/DIFF AUTOMATED (10/17/2022 6:00 AM CDT) WBC 8.4 4.5 - 11.0 x10'3/uL 11/17/2022 5:59 PM CDT [facility] RBC 3.90(L) 4.20 - 5.40 x10'6/uL 11/17/2022 5:59 PM CDT [facility] HGB 11.6(L) 12.0 - 16.0 G/DL 11/17/2022 5:59 PM CDT [facility] HCT 35.6(L) 38.0 - 48.0 % 11/17/2022 5:59 PM CDT [facility] MCV 91.3 81.0 - 99.0 FL 11/17/2022 5:59 PM CDT [facility] MCH 29.7 27.0 - 31.0 PG 11/17/2022 5:59 PM CDT [facility] MCHC 32.6 32.0 - 36.0 G/DL 11/17/2022 5:59 PM CDT [facility] RDW 13.2 11.5 - 14.5 % 11/17/2022 5:59 PM CDT [facility] PLT 290 130 - 400 x10'3/uL 11/17/2022 5:59 PM CDT [facility] MPV 11.2 9.3 - 12.2 FL 11/17/2022 5:59 PM CDT [facility] NEUTROPHILS % 56.0 % 11/17/2022 5:59 PM CDT [facility] LYMPHOCYTES % 36.0 % 11/17/2022 5:59 PM CDT [facility] MONOCYTES % 6.0 % 11/17/2022 5:59 PM CDT [facility] EOSINOPHILS 2.0 % 11/17/2022 5:59 PM CDT [facility] ABS. LYMPHOCYTES 3.02 1.00 - 4.80 x10'3/uL 11/17/2022 5:59 PM CDT [facility] ABS. NEUTROPHILS TOTAL 4.71 1.80 - 7.70 x10'3/uL 11/17/2022 5:59 PM CDT [facility] ABS. MONOCYTES 0.50 0.24 - 0.86 x10'3/uL 11/17/2022 5:59 PM CDT [facility] ABS. EOSINOPHILS 0.17 0.04 - 0.36 x10'3/uL 11/17/2022 5:59 PM CDT [facility] DIFFERENTIAL TYPE AUTOMATED DIFFERENTIAL 11/17/2022 5:59 PM CDT [facility] PLT EST. ADEQUATE 11/17/2022 5:59 PM CDT [facility] 10/17/2022 6:00 AM CDT us Ramesh Dexter DO LABORATORY Final Resul t [facility] [address] [place] [address], [place] [phone] * (ABNORMAL) BASIC METABOLIC PANEL (10/17/2022 6:00 AM CDT) GLUCOSE 138(H) 70 - 99 MG/DL 11/17/2022 9:52 AM CDT [facility] BUN 17 7 - 18 MG/DL 11/17/2022 9:52 AM CDT [facility] CREATININE S/P/B 1.17(H) 0.55 - 1.02 MG/DL 11/17/2022 9:52 AM CDT [facility] SODIUM S/P/B 139 136 - 145 MMOL/L 11/17/2022 9:52 AM CDT [facility] POTASSIUM S/P/B 4.2 3.5 - 5.1 MMOL/L 11/17/2022 9:52 AM CDT [facility] CHLORIDE S/P/B 104 100 - 108 MMOL/L 11/17/2022 9:52 AM CDT [facility] CO2 28.2 21 - 32 MMOL/L 11/17/2022 9:52 AM CDT [facility] CALCIUM S/P/B 9.2 8.5 - 10.1 MG/DL 11/17/2022 9:52 AM CDT [facility] ANION GAP 6.8 5 - 15 MMOL/L 11/17/2022 9:52 AM CDT [facility] BUN CREATININE RATIO 14.5 6 - 26 11/17/2022 9:52 AM CDT [facility] GFR ESTIMATE 56(L) >90 ML/MIN/1.7 3 M2 11/17/2022 9:52 AM CDT [facility] Comment: NOTE: eGFR is not calculated for patients <18 years of age. This is an estimated GFR calculation using the new CKD EPI creatinine equation without race and so does not require a correction factor for race. This estimated GFR should not be used for calculating drug doses. 10/17/2022 6:00 AM CDT Ramesh Dexter DO LABORATORY Final Resul t Performing Organization Address City/[facility] Co de Phone Number [facility] [address] [place] [id number], [place] [phone] * POCT glucose (10/16/2022 4:07 PM CDT) GLUCOSE POC 99 70 - 99 mg/dL 11/01/2022 4:44 PM CDT [facility] 10/16/2022 4:07 PM CDT Farrukh Reed DO POCT ORDERABLES - DEVICE Final R esult [facility] [address] [place] [address], [place] [phone] * (ABNORMAL) POCT glucose (10/16/2022 10:28 AM CDT) GLUCOSE POC 110(H) 70 - 99 mg/dL 11/01/2022 4:44 PM CDT [facility] 10/16/2022 10:2 8 AM CDT Toimaria c Derek CAMPOS POCT ORDERABLES - DEVICE Final R esult [facility] [address] [place] [address], [place] [phone] * POCT glucose (10/16/2022 7:19 AM CDT) GLUCOSE POC 87 70 - 99 mg/dL 11/01/2022 4:44 PM CDT [facility] 10/16/2022 7:19 AM CDT Farrukh Reed DO POCT ORDERABLES - DEVICE Final R esult [facility] [address] [place] [id number], * (ABNORMAL) POCT glucose (10/15/2022 9:07 PM CDT) GLUCOSE POC 169(H) 70 - 99 mg/dL 11/01/2022 11:19 AM CDT [facility] 10/15/2022 9:07 PM CDT Farrukh Reed DO POCT ORDERABLES - DEVICE Final R esult Performing Organization Address City/[facility]/ZIP Co de Phone Number [facility] [address] [place] [phone], [place] [phone] * (ABNORMAL) POCT glucose (10/15/2022 4:02 PM CDT) GLUCOSE POC 111(H) 70 - 99 mg/dL 11/01/2022 11:19 AM CDT [facility] 10/15/2022 4:02 PM CDT Farrukh Reed DO POCT ORDERABLES - DEVICE Final R esult Performing Organization Address [facility] Co de Phone Number [facility] [address] [place] [address], [place] [phone] * (ABNORMAL) POCT glucose (10/15/2022 11:53 AM CDT) GLUCOSE POC 126(H) 70 - 99 mg/dL 11/01/2022 11:19 AM CDT [facility] 10/15/2022 11:5 3 AM CDT Farrukh Reed DO POCT ORDERABLES - DEVICE Final R esult Performing Organization Address City/[facility]/ZIP Co de Phone Number [facility] [address] [place] [address], [place] [phone] * POCT glucose (10/15/2022 5:22 AM CDT) GLUCOSE POC 81 70 - 99 mg/dL 11/01/2022 11:19 AM CDT [facility] 10/15/2022 5:22 AM CDT us Farrukh Reedely CAMPOS POCT ORDERABLES - DEVICE Final R esult [facility] [address] [place] [address], * (ABNORMAL) COMPREHENSIVE METABOLIC PANEL (10/15/2022 5:15 AM CDT) [facility] GLUCOSE 92 70 - 99 MG/DL 10/28/2022 7:10 PM CDT [facility] BUN 12 7 - 18 MG/DL 10/28/2022 7:10 PM CDT [facility] CREATININE S/P/B 1.02 0.55 - 1.02 MG/DL 10/28/2022 7:10 PM CDT [facility] SODIUM S/P/B 140 136 - 145 MMOL/L 10/28/2022 7:10 PM CDT [facility] POTASSIUM S/P/B 4.2 3.5 - 5.1 MMOL/L 10/28/2022 7:10 PM CDT [facility] CHLORIDE S/P/B 109(H) 100 - 108 MMOL/L 10/28/2022 7:10 PM CDT [facility] CO2 26.9 21 - 32 MMOL/L 10/28/2022 7:10 PM CDT [facility] CALCIUM S/P/B 9.6 8.5 - 10.1 MG/DL 10/28/2022 7:10 PM CDT [facility] BILIRUBIN TOTAL S/P/B 0.3 0.2 - 1.2 MG/DL 10/28/2022 7:10 PM CDT [facility] Comment: THIS ASSAY IS NOT RECOMMENDED FOR PATIENTS UNDERGOING TREATMENT WITH ELTROMBOPAG DUE TO THE POTENTIAL FOR FALSELY ELEVATED RESULTS. TOTAL PROTEIN S/P/B 7.9 6.4 - 8.2 G/DL 10/28/2022 7:10 PM CDT [facility] ALBUMIN S/P/B 3.0(L) 3.4 - 5.0 G/DL 10/28/2022 7:10 PM CDT [facility] AST 19 15 - 37 U/L 10/28/2022 7:10 PM CDT [facility] ALT 24 14 - 55 U/L 10/28/2022 7:10 PM CDT [facility] ALKALINE PHOSPHATASE S/P/B 134 50 - 136 U/L 10/28/2022 7:10 PM CDT [facility] ANION GAP 4.1(L) 5 - 15 MMOL/L 10/28/2022 7:10 PM CDT [facility] BUN CREATININE RATIO 11.8 6 - 26 10/28/2022 7:10 PM T [facility] A/G RATIO 0.6(L) 1.0 - 2.0 RATIO 10/28/2022 7:10 PM T [facility] GFR ESTIMATE 67(L) >90 ML/MIN/1.7 3 M2 10/28/2022 7:10 PM CDT [facility] Comment: NOTE: eGFR is not calculated for patients <18 years of age. This is an estimated GFR calculation using the new CKD EPI creatinine equation without race and so does not require a correction factor for race. This estimated GFR should not be used for calculating drug doses. 10/15/2022 5:15 AM CDT Nanda Cartagena MD LABORATORY Final Res ult [facility] [address] [place] [address], [place] [phone] * (ABNORMAL) CBC W/DIFF AUTOMATED (10/15/2022 5:15 AM CDT) [facility] Signature WBC 8.7 4.5 - 11.0 x10'3/uL 10/28/2022 7:10 PM CDT [facility] RBC 3.82(L) 4.20 - 5.40 x10'6/uL 10/28/2022 7:10 PM CDT [facility] HGB 11.3(L) 12.0 - 16.0 G/DL 10/28/2022 7:10 PM CDT [facility] HCT 35.5(L) 38.0 - 48.0 % 10/28/2022 7:10 PM CDT [facility] MCV 92.9 81.0 - 99.0 FL 10/28/2022 7:10 PM CDT [facility] MCH 29.6 27.0 - 31.0 PG 10/28/2022 7:10 PM CDT [facility] MCHC 31.8(L) 32.0 - 36.0 G/DL 10/28/2022 7:10 PM CDT [facility] RDW 13.2 11.5 - 14.5 % 10/28/2022 7:10 PM CDT [facility] PLT 276 130 - 400 x10'3/uL 10/28/2022 7:10 PM CDT [facility] MPV 11.2 9.3 - 12.2 FL 10/28/2022 7:10 PM CDT [facility] DIFFERENTIAL TYPE AUTOMATED DIFFERENTIAL 10/28/2022 7:10 PM CDT [facility] NEUTROPHILS % 54.7 % 10/28/2022 7:10 PM CDT [facility] LYMPHOCYTES % 37.9 % 10/28/2022 7:10 PM CDT [facility] MONOCYTES % 5.2 % 10/28/2022 7:10 PM CDT [facility] EOSINOPHILS 1.4 % 10/28/2022 7:10 PM CDT [facility] BASOPHILS 0.5 % 10/28/2022 7:10 PM CDT [facility] IMMATURE GRANS % 0.3 % 10/29/19 7:10 PM CDT [facility] ABS. NEUTROPHILS TOTAL 4.77 1.80 - 7.70 x10'3/uL 10/28/2022 7:10 PM CDT [facility] ABS. LYMPHOCYTES 3.30 1.00 - 4.80 x10'3/uL 10/28/2022 7:10 PM CDT [facility] ABS. MONOCYTES 0.45 0.24 - 0.86 x10'3/uL 10/28/2022 7:10 PM CDT [facility] ABS. EOSINOPHILS 0.12 0.04 - 0.36 x10'3/uL 10/28/2022 7:10 PM CDT [facility] ABS. BASOPHILS 0.04 0.01 - 0.08 x10'3/uL 10/28/2022 7:10 PM CDT [facility] ABS. IMMATURE GRANULOCYTES 0.03 0.00 - 0.49 x10'3/uL 10/28/2022 7:10 PM CDT [facility] 10/15/2022 5:15 AM CDT us Nanda Cartagena MD LABORATORY Final Res ult [facility] [address] [place] [address], [place] [phone] * (ABNORMAL) POCT glucose (10/14/2022 8:51 PM CDT) GLUCOSE POC 148(H) 70 - 99 mg/dL 10/14/2022 8:52 PM CDT [facility] 10/14/2022 8:51 PM CDT Farrukh Reed DO POCT ORDERABLES - DEVICE Final R esult [facility] [address] [place] [address], [place] [phone] * (ABNORMAL) POCT glucose (10/14/2022 4:02 PM CDT) GLUCOSE POC 106(H) 70 - 99 mg/dL 10/14/2022 5:17 PM CDT [facility] 10/14/2022 4:02 PM CDT Farrukh Reed DO POCT ORDERABLES - DEVICE Final R esult Performing Organization Address City/[facility]/ZIP Co de Phone Number [facility] [address] [place] [address], [place] [phone] * (ABNORMAL) POCT glucose (10/14/2022 11:38 AM CDT) GLUCOSE POC 129(H) 70 - 99 mg/dL 10/15/2022 2:14 AM CDT [facility] 10/14/2022 11:3 8 AM CDT Farrukh Reed DO POCT ORDERABLES - DEVICE Final R esult [facility] [address] [place] [address], [place] [phone] * (ABNORMAL) COMPREHENSIVE METABOLIC PANEL (10/14/2022 4:34 AM CDT) [facility] GLUCOSE 115(H) 70 - 99 MG/DL 10/14/2022 5:10 AM CDT [facility] BUN 17 7 - 18 MG/DL 10/14/2022 5:10 AM CDT [facility] CREATININE S/P/B 1.09(H) 0.55 - 1.02 MG/DL 10/14/2022 5:10 AM CDT [facility] SODIUM S/P/B 139 136 - 145 MMOL/L 10/14/2022 5:10 AM CDT [facility] POTASSIUM S/P/B 4.1 3.5 - 5.1 MMOL/L 10/14/2022 5:10 AM CDT [facility] CHLORIDE S/P/B 108 100 - 108 MMOL/L 10/14/2022 5:10 AM CDT [facility] CO2 25.4 21 - 32 MMOL/L 10/14/2022 5:10 AM CDT [facility] CALCIUM S/P/B 8.9 8.5 - 10.1 MG/DL 10/14/2022 5:10 AM CDT [facility] BILIRUBIN TOTAL S/P/B 0.4 0.2 - 1.2 MG/DL 10/14/2022 5:10 AM CDT [facility] Comment: THIS ASSAY IS NOT RECOMMENDED FOR PATIENTS UNDERGOING TREATMENT WITH ELTROMBOPAG DUE TO THE POTENTIAL FOR FALSELY ELEVATED RESULTS. TOTAL PROTEIN S/P/B 8.0 6.4 - 8.2 G/DL 10/14/2022 5:10 AM CDT [facility] ALBUMIN S/P/B 3.0(L) 3.4 - 5.0 G/DL 10/14/2022 5:10 AM CDT [facility] AST 19 15 - 37 U/L 10/14/2022 5:10 AM CDT [facility] ALT 23 14 - 55 U/L 10/14/2022 5:10 AM CDT [facility] ALKALINE PHOSPHATASE S/P/B 120 50 - 136 U/L 10/14/2022 5:10 AM CDT [facility] ANION GAP 5.6 5 - 15 MMOL/L 10/14/2022 5:10 AM CDT [facility] BUN CREATININE RATIO 15.6 6 - 26 10/14/2022 5:10 AM CDT [facility] A/G RATIO 0.6(L) 1.0 - 2.0 RATIO 10/14/2022 5:10 AM CDT [facility] GFR ESTIMATE 62(L) >90 ML/MIN/1.7 3 M2 10/14/2022 5:10 AM CDT [facility] Comment: NOTE: eGFR is not calculated for patients <18 years of age. This is an estimated GFR calculation using the new CKD EPI creatinine equation without race and so does not require a correction factor for race. This estimated GFR should not be used for calculating drug doses. 10/14/2022 4:34 AM CDT Nanda Cartagena MD LABORATORY Final Res ult [facility] [address] [place] [address], [place] [phone] * (ABNORMAL) CBC W/DIFF AUTOMATED (10/14/2022 4:34 AM CDT) WBC 10.3 4.5 - 11.0 x10'3/uL 10/14/2022 4:48 AM CDT [facility] RBC 3.86(L) 4.20 - 5.40 x10'6/uL 10/14/2022 4:48 AM CDT [facility] HGB 11.6(L) 12.0 - 16.0 G/DL 10/14/2022 4:48 AM CDT [facility] HCT 34.9(L) 38.0 - 48.0 % 10/14/2022 4:48 AM CDT [facility] MCV 90.4 81.0 - 99.0 FL 10/14/2022 4:48 AM CDT [facility] MCH 30.1 27.0 - 31.0 PG 10/14/2022 4:48 AM CDT [facility] MCHC 33.2 32.0 - 36.0 G/DL 10/14/2022 4:48 AM CDT [facility] RDW 13.1 11.5 - 14.5 % 10/14/2022 4:48 AM CDT [facility] PLT 298 130 - 400 x10'3/uL 10/14/2022 4:48 AM CDT [facility] MPV 11.2 9.3 - 12.2 FL 10/14/2022 4:48 AM CDT [facility] DIFFERENTIAL TYPE AUTOMATED DIFFERENTIAL 10/14/2022 4:48 AM CDT [facility] NEUTROPHILS % 61.5 % 10/14/2022 4:48 AM CDT [facility] LYMPHOCYTES % 32.1 % 10/14/2022 4:48 AM CDT [facility] MONOCYTES % 4.1 % 10/14/2022 4:48 AM CDT [facility] EOSINOPHILS 1.4 % 10/14/2022 4:48 AM CDT [facility] BASOPHILS 0.5 % 10/14/2022 4:48 AM CDT [facility] IMMATURE GRANS % 0.4 % 10/15/19 4:48 AM CDT [facility] ABS. NEUTROPHILS TOTAL 6.32 1.80 - 7.70 x10'3/uL 10/14/2022 4:48 AM CDT [facility] ABS. LYMPHOCYTES 3.29 1.00 - 4.80 x10'3/uL 10/14/2022 4:48 AM CDT [facility] ABS. MONOCYTES 0.42 0.24 - 0.86 x10'3/uL 10/14/2022 4:48 AM CDT [facility] ABS. EOSINOPHILS 0.14 0.04 - 0.36 x10'3/uL 10/14/2022 4:48 AM CDT [facility] ABS. BASOPHILS 0.05 0.01 - 0.08 x10'3/uL 10/14/2022 4:48 AM CDT [facility] ABS. IMMATURE GRANULOCYTES 0.04 0.00 - 0.49 x10'3/uL 10/14/2022 4:48 AM CDT [facility] 10/14/2022 4:34 AM CDT Nanda Cartagena MD LABORATORY Final Res ult [facility] [address] [place] [address], [place] [phone] * (ABNORMAL) POCT glucose (10/13/2022 8:36 PM CDT) [facility] GLUCOSE POC 130(H) 70 - 99 mg/dL 10/13/2022 8:38 PM CDT [facility] 10/13/2022 8:36 PM CDT Holli Murray MD POCT ORDERABLES - DEVICE Fin al Result Performing Organization Address City/[facility] Co de Phone Number [facility] [address] [place] [address], [place] [phone] * (ABNORMAL) POCT glucose (10/13/2022 4:18 PM CDT) GLUCOSE POC 126(H) 70 - 99 mg/dL 10/13/2022 4:21 PM CDT [facility] 10/13/2022 4:18 PM CDT Holli Murray MD POCT ORDERABLES - DEVICE Fin al Result Performing Organization Address [facility] de Phone Number [facility] [address] [place] [address], [place] [phone] * (ABNORMAL) POCT glucose (10/13/2022 11:20 AM CDT) GLUCOSE POC 104(H) 70 - 99 mg/dL 10/13/2022 11:46 AM CDT [facility] 10/13/2022 11:2 0 AM CDT Holli Murray MD POCT ORDERABLES - DEVICE Fin al Result Performing Organization Address City/[facility] Co de Phone Number [facility] [address] [place] [address], [place] [phone] * (ABNORMAL) COMPREHENSIVE METABOLIC PANEL (10/13/2022 5:15 AM CDT) GLUCOSE 156(H) 70 - 99 MG/DL 10/13/2022 5:56 AM CDT [facility] BUN 15 7 - 18 MG/DL 10/13/2022 5:56 AM CDT [facility] CREATININE S/P/B 1.57(H) 0.55 - 1.02 MG/DL 10/13/2022 5:56 AM CDT [facility] SODIUM S/P/B 134(L) 136 - 145 MMOL/L 10/13/2022 5:56 AM CDT [facility] POTASSIUM S/P/B 3.8 3.5 - 5.1 MMOL/L 10/13/2022 5:56 AM CDT [facility] CHLORIDE S/P/B 100 100 - 108 MMOL/L 10/13/2022 5:56 AM CDT [facility] CO2 25.5 21 - 32 MMOL/L 10/13/2022 5:56 AM CDT [facility] CALCIUM S/P/B 8.9 8.5 - 10.1 MG/DL 10/13/2022 5:56 AM CDT [facility] BILIRUBIN TOTAL S/P/B 0.4 0.2 - 1.2 MG/DL 10/13/2022 5:56 AM CDT [facility] Comment: THIS ASSAY IS NOT RECOMMENDED FOR PATIENTS UNDERGOING TREATMENT WITH ELTROMBOPAG DUE TO THE POTENTIAL FOR FALSELY ELEVATED RESULTS. TOTAL PROTEIN S/P/B 8.3(H) 6.4 - 8.2 G/DL 10/13/2022 5:56 AM CDT [facility] ALBUMIN S/P/B 3.2(L) 3.4 - 5.0 G/DL 10/13/2022 5:56 AM CDT [facility] AST 15 15 - 37 U/L 10/13/2022 5:56 AM CDT [facility] ALT 24 14 - 55 U/L 10/13/2022 5:56 AM CDT [facility] ALKALINE PHOSPHATASE S/P/B 124 50 - 136 U/L 10/13/2022 5:56 AM CDT [facility] ANION GAP 8.5 5 - 15 MMOL/L 10/13/2022 5:56 AM CDT [facility] BUN CREATININE RATIO 9.6 6 - 26 10/13/2022 5:56 AM CDT [facility] A/G RATIO 0.6(L) 1.0 - 2.0 RATIO 10/13/2022 5:56 AM CDT [facility] GFR ESTIMATE 40(L) >90 ML/MIN/1.7 3 M2 10/13/2022 5:56 AM CDT [facility] Comment: NOTE: eGFR is not calculated for patients <18 years of age. This is an estimated GFR calculation using the new CKD EPI creatinine equation without race and so does not require a correction factor for race. This estimated GFR should not be used for calculating drug doses. 10/13/2022 5:15 AM CDT June Leonard NP LABORATORY Final Result [facility] [address] [place] [address], * (ABNORMAL) CBC W/DIFF AUTOMATED (10/13/2022 5:15 AM CDT) WBC 11.7(H) 4.5 - 11.0 x10'3/uL 10/13/2022 5:29 AM CDT [facility] RBC 3.85(L) 4.20 - 5.40 x10'6/uL 10/13/2022 5:29 AM CDT [facility] HGB 11.4(L) 12.0 - 16.0 G/DL 10/13/2022 5:29 AM CDT [facility] HCT 34.5(L) 38.0 - 48.0 % 10/13/2022 5:29 AM CDT [facility] MCV 89.6 81.0 - 99.0 FL 10/13/2022 5:29 AM CDT [facility] MCH 29.6 27.0 - 31.0 PG 10/13/2022 5:29 AM CDT [facility] MCHC 33.0 32.0 - 36.0 G/DL 10/13/2022 5:29 AM CDT [facility] RDW 13.1 11.5 - 14.5 % 10/13/2022 5:29 AM CDT [facility] PLT 303 130 - 400 x10'3/uL 10/13/2022 5:29 AM CDT [facility] MPV 11.0 9.3 - 12.2 FL 10/13/2022 5:29 AM CDT [facility] DIFFERENTIAL TYPE AUTOMATED DIFFERENTIAL 10/13/2022 5:29 AM CDT [facility] NEUTROPHILS % 65.4 % 10/13/2022 5:29 AM CDT [facility] LYMPHOCYTES % 28.4 % 10/13/2022 5:29 AM CDT [facility] MONOCYTES % 4.7 % 10/13/2022 5:29 AM CDT [facility] EOSINOPHILS 0.8 % 10/13/2022 5:29 AM CDT [facility] BASOPHILS 0.4 % 10/13/2022 5:29 AM CDT [facility] IMMATURE GRANS % 0.3 % 10/14/19 5:29 AM CDT [facility] ABS. NEUTROPHILS TOTAL 7.62 1.80 - 7.70 x10'3/uL 10/13/2022 5:29 AM CDT [facility] ABS. LYMPHOCYTES 3.31 1.00 - 4.80 x10'3/uL 10/13/2022 5:29 AM CDT [facility] ABS. MONOCYTES 0.55 0.24 - 0.86 x10'3/uL 10/13/2022 5:29 AM CDT [facility] ABS. EOSINOPHILS 0.09 0.04 - 0.36 x10'3/uL 10/13/2022 5:29 AM CDT [facility] ABS. BASOPHILS 0.05 0.01 - 0.08 x10'3/uL 10/13/2022 5:29 AM CDT [facility] ABS. IMMATURE GRANULOCYTES 0.04 0.00 - 0.49 x10'3/uL 10/13/2022 5:29 AM CDT [facility] 10/13/2022 5:15 AM CDT us June Leonard NP LABORATORY Final Result [facility] [address] [place], [place] [address], [place] [phone] * (ABNORMAL) C-REACTIVE PROTEIN (10/13/2022 5:15 AM CDT) C-REACTIVE PROTEIN 4.05(H) <0.29 mg/dL 10/13/2022 5:56 AM CDT [facility] 10/13/2022 5:15 AM CDT us June Leonard NP LABORATORY Final Result [facility] [address] [place] [address], * (ABNORMAL) SED RATE, ERYTHROCYTE (ESR) (10/13/2022 5:15 AM CDT) ESR 74(H) <30 MM/HR 10/13/2022 5:35 AM CDT [facility] Comment:Testing performed on [employer] iSED. 10/13/2022 5:15 AM CDT June Leonard [employer] LABORATORY Final Result [facility] [address] [place] [address], * (ABNORMAL) POCT glucose (10/12/2022 10:18 PM CDT) GLUCOSE POC 153(H) 70 - 99 mg/dL 10/12/2022 10:20 PM CDT [facility] 10/12/2022 10:1 8 PM CDT Holli Murray MD POCT ORDERABLES - DEVICE Fin al Result [facility] [address] [place] [address], * (ABNORMAL) POCT glucose (10/12/2022 9:19 PM CDT) GLUCOSE POC 58(L) 70 - 99 mg/dL 10/12/2022 9:21 PM CDT [facility] 10/12/2022 9:19 PM CDT Holli Murray MD POCT ORDERABLES - DEVICE Fin al Result Performing Organization Address [facility] Co de Phone Number [facility] [address] [place] [address], [place] [phone] * POCT glucose (10/12/2022 8:30 PM CDT) GLUCOSE POC 77 70 - 99 mg/dL 10/12/2022 8:32 PM CDT [facility] 10/12/2022 8:30 PM CDT Holli Murray MD POCT ORDERABLES - DEVICE Fin al Result Performing Organization Address [facility] Co de Phone Number [facility] [address] [place] [address], [place] [phone] * (ABNORMAL) POCT glucose (10/12/2022 4:48 PM CDT) GLUCOSE POC 144(H) 70 - 99 mg/dL 10/12/2022 4:58 PM CDT [facility] 10/12/2022 4:48 PM CDT Holli Murray MD POCT ORDERABLES - DEVICE Fin al Result Performing Organization Address City/[facility] Co de Phone Number [facility] [address] [place] [address], [place] [phone] * (ABNORMAL) POCT glucose (10/12/2022 11:32 AM CDT) GLUCOSE POC 120(H) 70 - 99 mg/dL 10/12/2022 11:46 AM CDT [facility] 10/12/2022 11:3 2 AM CDT Holli Murray MD POCT ORDERABLES - DEVICE Fin al Result Performing Organization Address City/[facility]/ZIP Co de Phone Number [facility] [address] [place] [address], [place] [phone] * (ABNORMAL) POCT glucose (10/12/2022 5:49 AM CDT) GLUCOSE POC 215(H) 70 - 99 mg/dL 10/12/2022 5:51 AM CDT [facility] 10/12/2022 5:49 AM CDT Holli Murray MD POCT ORDERABLES - DEVICE Fin al Result Performing Organization Address [facility] Co de Phone Number [facility] [address] [place] [address], [place] [phone] * (ABNORMAL) COMPREHENSIVE METABOLIC PANEL (10/12/2022 4:50 AM CDT) GLUCOSE 119(H) 70 - 99 MG/DL 10/12/2022 5:28 AM CDT [facility] BUN 17 7 - 18 MG/DL 10/12/2022 5:28 AM CDT [facility] CREATININE S/P/B 1.03(H) 0.55 - 1.02 MG/DL 10/12/2022 5:28 AM CDT [facility] SODIUM S/P/B 139 136 - 145 MMOL/L 10/12/2022 5:28 AM CDT [facility] POTASSIUM S/P/B 3.6 3.5 - 5.1 MMOL/L 10/12/2022 5:28 AM CDT [facility] CHLORIDE S/P/B 107 100 - 108 MMOL/L 10/12/2022 5:28 AM CDT [facility] CO2 25.6 21 - 32 MMOL/L 10/12/2022 5:28 AM T [facility] CALCIUM S/P/B 9.1 8.5 - 10.1 MG/DL 10/12/2022 5:28 AM CDT [facility] BILIRUBIN TOTAL S/P/B 0.8 0.2 - 1.2 MG/DL 10/12/2022 5:28 AM CDT [facility] Comment: THIS ASSAY IS NOT RECOMMENDED FOR PATIENTS UNDERGOING TREATMENT WITH ELTROMBOPAG DUE TO THE POTENTIAL FOR FALSELY ELEVATED RESULTS. TOTAL PROTEIN S/P/B 8.3(H) 6.4 - 8.2 G/DL 10/12/2022 5:28 AM T [facility] ALBUMIN S/P/B 3.3(L) 3.4 - 5.0 G/DL 10/12/2022 5:28 AM CDT [facility] AST 18 15 - 37 U/L 10/12/2022 5:28 AM T [facility] ALT 23 14 - 55 U/L 10/12/2022 5:28 AM T [facility] ALKALINE PHOSPHATASE S/P/B 123 50 - 136 U/L 10/12/2022 5:28 AM T [facility] ANION GAP 6.4 5 - 15 MMOL/L 10/12/2022 5:28 AM T [facility] BUN CREATININE RATIO 16.5 6 - 26 10/12/2022 5:28 AM T [facility] A/G RATIO 0.7(L) 1.0 - 2.0 RATIO 10/12/2022 5:28 AM T [facility] GFR ESTIMATE 66(L) >90 ML/MIN/1.7 3 M2 10/12/2022 5:28 AM CDT [facility] Comment: NOTE: eGFR is not calculated for patients <18 years of age. This is an estimated GFR calculation using the new CKD EPI creatinine equation without race and so does not require a correction factor for race. This estimated GFR should not be used for calculating drug doses. 10/12/2022 4:50 AM CDT June Leonard NP LABORATORY Final Result [facility] [address] [place] [address], [place] [phone] * (ABNORMAL) CBC W/DIFF AUTOMATED (10/12/2022 4:50 AM CDT) WBC 12.5(H) 4.5 - 11.0 x10'3/uL 10/12/2022 5:05 AM CDT [facility] RBC 3.94(L) 4.20 - 5.40 x10'6/uL 10/12/2022 5:05 AM CDT [facility] HGB 11.8(L) 12.0 - 16.0 G/DL 10/12/2022 5:05 AM CDT [facility] HCT 35.3(L) 38.0 - 48.0 % 10/12/2022 5:05 AM CDT [facility] MCV 89.6 81.0 - 99.0 FL 10/12/2022 5:05 AM CDT [facility] MCH 29.9 27.0 - 31.0 PG 10/12/2022 5:05 AM CDT [facility] MCHC 33.4 32.0 - 36.0 G/DL 10/12/2022 5:05 AM CDT [facility] RDW 13.2 11.5 - 14.5 % 10/12/2022 5:05 AM CDT [facility] PLT 286 130 - 400 x10'3/uL 10/12/2022 5:05 AM T [facility] MPV 11.4 9.3 - 12.2 FL 10/12/2022 5:05 AM CDT [facility] DIFFERENTIAL TYPE AUTOMATED DIFFERENTIAL 10/12/2022 5:05 AM CDT [facility] NEUTROPHILS % 65.1 % 10/12/2022 5:05 AM CDT [facility] LYMPHOCYTES % 29.1 % 10/12/2022 5:05 AM CDT [facility] MONOCYTES % 4.6 % 10/12/2022 5:05 AM T [facility] EOSINOPHILS 0.7 % 10/12/2022 5:05 AM CDT [facility] BASOPHILS 0.3 % 10/12/2022 5:05 AM CDT [facility] IMMATURE GRANS % 0.2 % 10/13/19 5:05 AM CDT [facility] ABS. NEUTROPHILS TOTAL 8.15(H) 1.80 - 7.70 x10'3/uL 10/12/2022 5:05 AM CDT [facility] ABS. LYMPHOCYTES 3.65 1.00 - 4.80 x10'3/uL 10/12/2022 5:05 AM CDT [facility] ABS. MONOCYTES 0.58 0.24 - 0.86 x10'3/uL 10/12/2022 5:05 AM CDT [facility] ABS. EOSINOPHILS 0.09 0.04 - 0.36 x10'3/uL 10/12/2022 5:05 AM CDT [facility] ABS. BASOPHILS 0.04 0.01 - 0.08 x10'3/uL 10/12/2022 5:05 AM CDT [facility] ABS. IMMATURE GRANULOCYTES 0.03 0.00 - 0.49 x10'3/uL 10/12/2022 5:05 AM CDT [facility] 10/12/2022 4:50 AM CDT June Leonard [employer] LABORATORY Final Result [facility] [address] [place] [address], * CULTURE, BACTERIA, BLOOD (10/12/2022 1:04 AM CDT) SPEC DESCRIPTION BLOOD 10/11/2022 9:43 PM CDT [facility] SPECIAL REQUESTS NO SPECIAL REQUEST 10/11/2022 9:43 PM CDT [facility] CULTURE RESULT NO GROWTH 5 DAYS 10/31/2022 8:43 AM CDT [facility] BLOOD SPECIMEN OBTAINED FOR BLOOD CULTURE / Unknown 10/12/2022 1:04 AM CDT 10/12/2022 1:11 AM CDT Lisseth Langston APRN MICROBIOLOGY - GENERAL ORDE RABLES Final Result [facility] [address] [place] [address], [place] [phone] * (ABNORMAL) POCT glucose (10/11/2022 10:43 PM CDT) GLUCOSE POC 138(H) 70 - 99 mg/dL 10/11/2022 10:52 PM CDT [facility] 10/11/2022 10:4 3 PM CDT us Janelle Pimentel DO POCT ORDERABLES - DEVICE Fin al Result [facility] [address] [place] [address], [place] [phone] * XR CHEST PORTABLE (10/11/2022 10:15 PM CDT) Anatomical Region Laterality Modality Chest Radiographic Shelli ging 10/11/2022 10:1 9 PM CDT Impressions 10/11/2022 10:19 PM CDT IMPRESSION: No acute findings. Referred By: ?? Interpreted By: John Campos, 10/11/2022 10:19 PM Narrative 10/11/2022 10:19 PM CDT CLINICAL HISTORY: Leukocytosis COMPARISON: 09/29/2022 TECHNIQUE: AP Portable View FINDINGS: Lungs are clear. No pneumothorax or pleural effusions evident. The cardiac silhouette, mediastinal contours, and pulmonary vessels appear within normal limits. No acute osseous abnormality. Procedure Note John Campos MD - 10/11/2022 CLINICAL HISTORY: Leukocytosis COMPARISON: 09/29/2022 TECHNIQUE: AP Portable View FINDINGS: Lungs are clear. No pneumothorax or pleural effusions evident. The cardiacsilhouette, mediastinal contours, and pulmonary vessels appear withinnormal limits. No acute osseous abnormality. IMPRESSION: No acute findings. Referred By: Interpreted By: John Campos, 10/11/2022 10:19 PM Lisseth Langston [employer] SUPERINTENDENT GENERAL IMAGING Final Resul t * (ABNORMAL) C-REACTIVE PROTEIN (10/11/2022 9:43 PM CDT) C-REACTIVE PROTEIN 2.22(H) <0.29 mg/dL 10/11/2022 10:11 PM CDT [facility] 10/11/2022 9:43 PM CDT us Lisseth Langston [employer] SUPERINTENDENT LABORATORY Final Resul t [facility] [address] [facility] [place] [address], [place] [phone] * CT ABD+PEL W IV CON ONLY (10/11/2022 6:45 PM CDT) Anatomical Region Laterality Modality Abdomen Computed Tomogra phy 10/11/2022 7:26 PM CDT Impressions 10/11/2022 7:36 PM CDT IMPRESSION: 1. ??No acute abnormality identified. 2. ??Stable chronic abnormal appearance of the right kidney. 3. ??Other chronic or nonurgent findings as described above. Referred By: ?? Interpreted By: Arley Gastelum MD, 10/11/2022 7:26 PM Narrative 10/11/2022 7:36 PM CDT EXAMINATION: CT ABD+PEL W CON [...] Image Gently techniques. FINDINGS: Liver is negative. ??Benign splenic calcifications. ??Spleen is otherwise negative. ??Gallbladder is negative. ??Pancreas is negative. ??Adrenal glands are negative. Stable abnormal appearance of the right kidney with diffuse dilatation of the renal calyces and mild dilatation of the right renal pelvis. ??There is a least one medullary calcification versus urinary tract stone in the right kidney. ??There is a small nonobstructive left renal stone is well. ??No left hydronephrosis. Abdominal aorta normal caliber with atherosclerotic ectasia. ??Bladder is unremarkable. ??Calcified pelvic phleboliths. ??Hysterectomy. ??No pelvic mass. No free air or fluid. ??No bowel obstruction or bowel wall thickening. ??Prominent size of the appendix, unchanged from prior exams without surrounding inflammatory change. ??Stomach and duodenum are unremarkable. ??No acute osseous abnormality. Procedure Note Arley Gastelum MD - 10/11/2022 EXAMINATION: CT ABD+PEL W CON CLINICAL [...] AsReasonably Achievable) / Image Gently techniques. FINDINGS: Liver is negative. Benign splenic calcifications. Spleen isotherwise negative. Gallbladder is negative. Pancreas is negative.Adrenal glands are negative. Stable abnormal appearance of the right kidney with diffuse dilatation ofthe renal calyces and mild dilatation of the right renal pelvis. There sonido least one medullary calcification versus urinary tract stone in theright kidney. There is a small nonobstructive left renal stone is well.No left hydronephrosis. Abdominal aorta normal caliber with atherosclerotic ectasia. Bladder isunremarkable. Calcified pelvic phleboliths. Hysterectomy. No pelvicmass. No free air or fluid. No bowel obstruction or bowel wall thickening.Prominent size of the appendix, unchanged from prior exams withoutsurrounding inflammatory change. Stomach and duodenum are unremarkable.No acute osseous abnormality. IMPRESSION: 1. No acute abnormality identified. 2. Stable chronic abnormal appearance of the right kidney. 3. Other chronic or nonurgent findings as described above. Referred By: Interpreted By: Arley Gastelum MD, 10/11/2022 7:[address] Final Resu lt * (ABNORMAL) SED RATE, ERYTHROCYTE (ESR) (10/11/2022 6:26 PM CDT) ESR 52(H) <30 MM/HR 10/11/2022 10:06 PM CDT [facility] Comment:Testing performed on [employer] iSED. 10/11/2022 6:26 PM CDT Lisseth Langston [employer] SUPERINT[employer] LABORATORY Final Resul t [facility] [address] [place] [address], [place] [phone] * (ABNORMAL) CBC W/DIFF AUTOMATED (10/11/2022 6:00 PM CDT) WBC 14.7(H) 4.5 - 11.0 x10'3/uL 10/11/2022 6:18 PM CDT [facility] RBC 4.09(L) 4.20 - 5.40 x10'6/uL 10/11/2022 6:18 PM CDT [facility] HGB 12.3 12.0 - 16.0 G/DL 10/11/2022 6:18 PM CDT [facility] HCT 36.5(L) 38.0 - 48.0 % 10/11/2022 6:18 PM CDT [facility] MCV 89.2 81.0 - 99.0 FL 10/11/2022 6:18 PM CDT [facility] MCH 30.1 27.0 - 31.0 PG 10/11/2022 6:18 PM CDT [facility] MCHC 33.7 32.0 - 36.0 G/DL 10/11/2022 6:18 PM CDT [facility] RDW 13.1 11.5 - 14.5 % 10/11/2022 6:18 PM CDT [facility] PLT 300 130 - 400 x10'3/uL 10/11/2022 6:18 PM CDT [facility] MPV 11.4 9.3 - 12.2 FL 10/11/2022 6:18 PM CDT [facility] DIFFERENTIAL TYPE AUTOMATED DIFFERENTIAL 10/11/2022 6:18 PM CDT [facility] NEUTROPHILS % 82.2 % 10/11/2022 6:18 PM CDT [facility] LYMPHOCYTES % 13.0 % 10/11/2022 6:18 PM CDT [facility] MONOCYTES % 3.9 % 10/11/2022 6:18 PM CDT [facility] EOSINOPHILS 0.3 % 10/11/2022 6:18 PM CDT [facility] BASOPHILS 0.2 % 10/11/2022 6:18 PM CDT [facility] IMMATURE GRANS % 0.4 % 10/12/19 6:18 PM CDT [facility] ABS. NEUTROPHILS TOTAL 12.09(H) 1.80 - 7.70 x10'3/uL 10/11/2022 6:18 PM CDT [facility] ABS. LYMPHOCYTES 1.91 1.00 - 4.80 x10'3/uL 10/11/2022 6:18 PM CDT [facility] ABS. MONOCYTES 0.57 0.24 - 0.86 x10'3/uL 10/11/2022 6:18 PM CDT [facility] ABS. EOSINOPHILS 0.05 0.04 - 0.36 x10'3/uL 10/11/2022 6:18 PM CDT [facility] ABS. BASOPHILS 0.03 0.01 - 0.08 x10'3/uL 10/11/2022 6:18 PM CDT [facility] ABS. IMMATURE GRANULOCYTES 0.06 0.00 - 0.49 x10'3/uL 10/11/2022 6:18 PM CDT [facility] 10/11/2022 6:00 PM CDT [facility] Final Resul t Performing Organization Address City/[facility] Co de Phone Number [facility] [address] [place] [address], * TROPONIN, QUANT (10/11/2022 5:40 PM CDT) TROPONIN I HIGH SENSITIVITY 6 <54 ng/L 10/11/2022 6:28 PM CDT [facility] Comment: HIGH DOSES OF BIOTIN, TROPONIN-SPECIFIC AUTOANTIBODIES, AND ANTIBODY THERAPY CONTAINING HAMA MAY INTERFERE WITH THIS TEST RESULT. CORRELATION TO CLINICAL HISTORY AND PRESENTATION RECOMMENDED. 10/11/2022 5:40 PM CDT [facility] Final Resu lt Performing Organization Address City/[facility]/ZIP Co de Phone Number [facility] [address] [place] [address], [place] [phone] * LIPASE (10/11/2022 5:40 PM CDT) LIPASE 34 13 - 75 UNITS/L 10/11/2022 6:28 PM CDT [facility] 10/11/2022 5:40 PM CDT [facility] Final Resu lt Performing Organization Address City/[facility]/ZIP Co de Phone Number [facility] [address] [place] [address], [place] [phone] * (ABNORMAL) COMPREHENSIVE METABOLIC PANEL (10/11/2022 5:40 PM CDT) [facility] GLUCOSE 161(H) 70 - 99 MG/DL 10/11/2022 6:28 PM CDT [facility] BUN 20(H) 7 - 18 MG/DL 10/11/2022 6:28 PM CDT [facility] CREATININE S/P/B 1.04(H) 0.55 - 1.02 MG/DL 10/11/2022 6:28 PM CDT [facility] SODIUM S/P/B 139 136 - 145 MMOL/L 10/11/2022 6:28 PM CDT [facility] POTASSIUM S/P/B 4.2 3.5 - 5.1 MMOL/L 10/11/2022 6:28 PM CDT [facility] Comment:SLIGHT HEMOLYSIS, RE SULT MAY BE AFFECTED. CHLORIDE S/P/B 105 100 - 108 MMOL/L 10/11/2022 6:28 PM CDT [facility] CO2 25.4 21 - 32 MMOL/L 10/11/2022 6:28 PM CDT [facility] CALCIUM S/P/B 9.9 8.5 - 10.1 MG/DL 10/11/2022 6:28 PM CDT [facility] BILIRUBIN TOTAL S/P/B 0.7 0.2 - 1.2 MG/DL 10/11/2022 6:28 PM CDT [facility] Comment: THIS ASSAY IS NOT RECOMMENDED FOR PATIENTS UNDERGOING TREATMENT WITH ELTROMBOPAG DUE TO THE POTENTIAL FOR FALSELY ELEVATED RESULTS. TOTAL PROTEIN S/P/B 9.4(H) 6.4 - 8.2 G/DL 10/11/2022 6:28 PM CDT [facility] ALBUMIN S/P/B 3.7 3.4 - 5.0 G/DL 10/11/2022 6:28 PM CDT [facility] AST 28 15 - 37 U/L 10/11/2022 6:28 PM CDT [facility] Comment:SLIGHT HEMOLYSIS, RE SULT MAY BE AFFECTED. ALT 28 14 - 55 U/L 10/11/2022 6:28 PM CDT [facility] ALKALINE PHOSPHATASE S/P/B 145(H) 50 - 136 U/L 10/11/2022 6:28 PM CDT [facility] ANION GAP 8.6 5 - 15 MMOL/L 10/11/2022 6:28 PM CDT [facility] BUN CREATININE RATIO 19.2 6 - 26 10/11/2022 6:28 PM CDT [facility] A/G RATIO 0.6(L) 1.0 - 2.0 RATIO 10/11/2022 6:28 PM CDT [facility] GFR ESTIMATE 65(L) >90 ML/MIN/1.7 3 M2 10/11/2022 6:28 PM CDT [facility] Comment: NOTE: eGFR is not calculated for patients <18 years of age. This is an estimated GFR calculation using the new CKD EPI creatinine equation without race and so does not require a correction factor for race. This estimated GFR should not be used for calculating drug doses. 10/11/2022 5:40 PM CDT [facility] Final Resu lt [facility] [address] [place] [address], [place] [phone] * CULTURE URINE (10/11/2022 4:08 PM CDT) SPEC DESCRIPTION URINE CLEAN CATCH 10/11/2022 4:42 PM CDT [facility] SPECIAL REQUESTS NO SPECIAL REQUEST 10/11/2022 4:42 PM CDT [facility] CULTURE RESULT POLYMICROBIAL GROWTH CONSISTENT WITH NORMAL GENITAL AIDEN. ?? SUSCEPTIBILITIES NOT ROUTINELY PERFORMED. 10/13/2022 8:26 AM CDT [facility] URINE SPECIMEN OBTAINED BY CLEAN CATCH PROCEDURE / Unknown 10/11/2022 4:08 PM CDT 10/11/2022 4:41 PM CDT Tre MARIE MICROBIOLOGY - GENERAL ORD ERABLES Final Result [facility] [address] [place] [address], * (ABNORMAL) URINALYSIS (10/11/2022 4:08 PM CDT) SPECIMEN TYPE URINE CLEAN CATCH 10/11/2022 4:09 PM CDT [facility] COLOR (U) LIGHT YELLOW 10/11/2022 4:32 PM CDT [facility] TRANSPARENCY CLEAR 10/11/2022 4:32 PM CDT [facility] SPECIFIC GRAVITY (U) 1.013 1.001 - 1.030 10/11/2022 4:32 PM CDT [facility] U PH 5.5 5.0 - 9.0 10/11/2022 4:32 PM CDT [facility] LEUKOCYTES (U) NEGATIVE NEGATIVE 10/11/2022 4:32 PM CDT [facility] NITRITES NEGATIVE NEGATIVE 10/11/2022 4:32 PM CDT [facility] PROTEIN RANDOM (U) 200(H) <30 MG/DL 10/11/2022 4:32 PM CDT [facility] GLUCOSE (U) 30(A) NORMAL MG/DL 10/11/2022 4:32 PM CDT [facility] KETONES MG/DL (U) NEGATIVE NEGATIVE MG/DL 10/11/2022 4:32 PM CDT [facility] UROBILINOGEN NORMAL NORMAL MG/DL 10/11/2022 4:32 PM CDT [facility] BILIRUBIN (U) NEGATIVE NEGATIVE MG/DL 10/11/2022 4:32 PM CDT [facility] BLOOD (U) NEGATIVE NEGATIVE 10/11/2022 4:32 PM CDT [facility] CULTURE & SENSITIVITY INDICATED? SPECIMEN SETUP FOR CULTURE 10/11/2022 4:32 PM CDT [facility] MUCUS RARE /LPF 10/11/2022 4:32 PM CDT [facility] WBC/HPF 8(H) <6 /HPF 10/11/2022 4:32 PM CDT [facility] RBC/HPF 2 <6 /HPF 10/11/2022 4:32 PM CDT [facility] BACTERIA (U) FEW(A) NONE /HPF 10/11/2022 4:32 PM CDT [facility] SQUAMOUS EPITHELIALS FEW /HPF 10/11/2022 4:32 PM CDT [facility] URINE SPECIMEN OBTAINED BY CLEAN CATCH PROCEDURE / Unknown 10/11/2022 4:08 PM CDT us Tre MARIE URINE ORDERABLES Final Res ult [facility] [address] [place], [place] [address] [phone] * ECG 12 lead (10/11/2022 3:39 PM CDT) 10/11/2022 3:39 PM CDT Narrative [facility] - 10/11/2022 11:28 PM CDT ?[facility] ? [address] [place] ? Test Date: ?2022-10-11 Pat Name: ? LENA YOUNGBLOOD ?Department: ?? 41 ? Room: ? A329 Gender: ? Female ? 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 Requested By: TRE CHUNG Order Number: [id number] ? Reading MD: ?? Pabely Janes ? Measurements Intervals ?[place] ? Rate: ? 98 ? P: ?46 MT: ? 167 ?QRS: ?17 QRSD: ? 77 ? T: ?23 QT: ? 329 ? QTc: ?422 ? Interpretive Statements SINUS RHYTHM WITH OCCASIONAL VENTRICULAR PREMATURE COMPLEXES NONSPECIFIC T-WAVE ABNORMALITY Compared to ECG 09/29/2022 20:57:16 No significant changes Preliminary EKG interpretation by ED Physician Procedure Note Leonel Marrero MD - 10/11/[address] 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1970 Requested By: TRE CHUNG Order Number: [id number] Reading MD: Leonel Marrero Measurements Intervals [place] Rate: 98 P: 46 MT: 167 QRS: 17 QRSD: 77 T: 23 QT: 329 QTc: 422 Interpretive Statements SINUS RHYTHM WITH OCCASIONAL VENTRICULAR PREMATURE COMPLEXES NONSPECIFIC T-WAVE ABNORMALITY Compared to ECG 09/29/2022 20:57:16 No significant changes Preliminary EKG interpretation by ED Physician us Tre MARIE ECG ORDERABLES Final Resu lt [facility] documented in this encounter Visit Diagnoses Diagnosis Intractable abdominal pain- Primary Abdominal pain, unspecified site Intractable abdominal pain Abdominal pain, unspecified site Leukocytosis Leukocytosis, unspecified Abdominal pain Abdominal pain, unspecified site documented in this encounter Admitting Diagnoses Diagnosis Intractable abdominal pain Abdominal pain, unspecified site Abdominal pain Abdominal pain, unspecified site documented in this encounter Administered Medications Inactive Administered Medications - up to 3 most recent administrations Medication Order MAR Action Action Date Dose Rate Site amLODIPine (NORVASC) tablet 10 mg 10 mg, Oral, Nightly at bedtime, First dose on Sun10/12/22 at 2100, Until Discontinued Given 10/14/2022 9:07 PM CDT 10 mg Given 10/13/2022 8:45 PM CDT 10 mg Given 10/12/2022 8:41 PM CDT 10 mg atorvastatin (LIPITOR) tablet 20 mg 20 mg, Oral, Daily, First dose on Sun10/12/22 at 0900, Until Discontinued Given 10/14/2022 8:06 AM CDT 20 mg Given 10/13/2022 8:16 AM CDT 20 mg Given 10/12/2022 8:54 AM CDT 20 mg bisacodyl (DULCOLAX) suppository 10 mg 10 mg, Rectal, Once, 1 dose, On Sun10/12/22 at 1245 Given 10/12/2022 5:17 PM CDT 10 mg calcium carbonate (TUMS) chewable tablet 500 mg 500 mg, Oral, 3 times daily PRN, Indigestion, Heartburn, Starting on Sun10/13/22 at 2234, Until 10/28/22 at 1826 Given 10/14/2022 8:06 AM CDT 500 mg Given 10/13/2022 10:45 PM CDT 500 mg dicyclomine (BENTYL) capsule 20 mg 20 mg, Oral, 3 times daily, First dose on Sun10/12/22 at 1030, Until Discontinued Given 10/14/2022 9:07 PM CDT 20 mg Given 10/14/2022 5:16 PM CDT 20 mg Given 10/14/2022 8:06 AM CDT 20 mg dicyclomine (BENTYL) tablet 20 mg 20 mg, Oral, Once, 1 dose, On Sun10/11/22 at 2045 Given 10/11/2022 10:10 PM CDT 20 mg diphenhydrAMINE (BENADRYL) capsule 25 mg 25 mg, Oral, Every 6 hours PRN, Itching, Allergies, Starting on Sun10/12/22 at 2125, Until 10/28/22 at 1826 Given 10/14/2022 5:16 PM CDT 25 mg Given 10/13/2022 8:46 PM CDT 25 mg Given 10/12/2022 9:42 PM CDT 25 mg diphenhydrAMINE (BENADRYL) injection 25 mg 25 mg, Intravenous, Once, 1 dose, On Sun10/11/22 at 2045, For IV administration, give no faster than 25 mg/min. Given 10/11/2022 10:11 PM CDT 25 mg famotidine (PF) (PEPCID) injection 20 mg 20 mg, Intravenous, Once, 1 dose, On Sun10/11/22 at 1715, IV Push over 2 minutes Given 10/11/2022 6:16 PM CDT 20 mg heparin (porcine) injection 5,000 Units 5,000 Units, Subcutaneous, Every 12 hours scheduled (2 times per day), First dose on Sun10/12/22 at 0900, Until Discontinued Given 10/14/2022 9:07 PM CDT 5,000 Units Right Lower Abdomen Given 10/14/2022 8:06 AM CDT 5,000 Units L eft Lower Abdomen Given 10/13/2022 8:46 PM CDT 5,000 Units R ight Lower Abdomen HYDROcodone-acetaminophen (NORCO) 10-325 MG tablet 1 tablet 1 tablet, Oral, Every 6 hours PRN, Severe pain (Scale 8 - 10), Starting on Sun10/13/22 at 1351, Until 10/28/22 at 1826, Maximum dose of acetaminophen is 4000 mg from all sources in 24 hours. Given 10/14/2022 2:43 PM CDT 1 tablet HYDROmorphone (DILAUDID) injection 0.5 mg 0.5 mg, Intravenous, Every 4 hours PRN, Severe pain (Scale 8 - 10), Moderate pain (Scale 4 - 7), Starting on Sun10/11/22 at 2320, Until Sun10/13/22 at 1351, Administer slowly over at least 2-3 minutes. Given 10/13/2022 9:06 AM CDT 0.5 mg Given 10/13/2022 2:56 AM CDT 0.5 mg Given 10/12/2022 3:31 PM CDT 0.5 mg insulin aspart protamine-insulin aspart (NOVOLOG 70/30) injection 28 Units 28 Units, Subcutaneous, Every morning, First dose on Sun10/12/22 at 0700, Until Discontinued, 28 Units in AM and 33 Units in PM Therapeutic interchange for Humalog 75/25 per [facility] protocol Given 10/14/2022 8:06 AM CDT 28 Units Right Arm Given 10/13/2022 8:16 AM CDT 28 Units L eft Upper Abdomen Given 10/12/2022 7:46 AM CDT 28 Units Le ft Lower Abdomen insulin aspart protamine-insulin aspart (NOVOLOG 70/30) injection 33 Units 33 Units, Subcutaneous, Daily before supper, First dose on Sun10/12/22 at 1600, Until Discontinued, 28 Units in AM and 33 Units in PM Therapeutic interchange for Humalog 75/25 per [facility] protocol Given 10/14/2022 5:15 PM CDT 33 Units Right Arm Given 10/13/2022 4:25 PM CDT 33 Units Le ft Upper Abdomen Given 10/12/2022 5:17 PM CDT 33 Units Le ft Arm insulin lispro (HUMALOG) injection 0-14 Units 0-14 Units, Subcutaneous, 3 times daily before meals, First dose on Sun10/12/22 at 0700, Until Discontinued, Blood Glucose (SENSITIVE Dosing): [Less than 70:? Initiate Hypoglycemia Standing Orders] [71-140: 0 units] [141-180: 2 units] [181-220: 4 units] [221-260: 6 units] [261-300: 8 units] [301-350: 10 units] [351-400: 12 units] [Greater than 400: 14 units and Call Physician] Given 10/12/2022 5:18 PM CDT 2 Units Left Arm Given 10/12/2022 7:47 AM CDT 4 Units Le ft Lower Abdomen iopamidol (ISOVUE-370) 76 % injection 100 mL 100 mL, Intravenous, IMG once as needed, Contrast, 1 dose, Starting on Sun10/11/22 at 1845, Until Sun10/11/22 at 1846 Given 10/11/2022 6:46 PM CDT 100 mLs Ri ght Arm lisinopril (PRINIVIL) tablet 20 mg 20 mg, Oral, Every evening, First dose on Sun10/12/22 at 2100, Until DiscontinuedIndications:hypertension Given 10/14/2022 9:07 PM CDT 20 mg Given 10/13/2022 8:45 PM CDT 20 mg Given 10/12/2022 8:40 PM CDT 20 mg metoclopramide (REGLAN) injection 10 mg 10 mg, Intravenous, Once, 1 dose, On Sun10/11/22 at 2045, Administer IV over 1-2 minutes Given 10/11/2022 10:11 PM CDT 10 mg morphine injection 1 mg 1 mg, Intravenous, Every 3 hours PRN, Moderate pain (Scale 4 - 7), Severe pain (Scale 8 - 10), Starting on Sun10/11/22 at 2143, Until Sun10/12/22 at 0014 Given 10/11/2022 11:19 PM CDT 1 mg morphine injection 4 mg 4 mg, Intravenous, Once, 1 dose, On Sun10/11/22 at 1430 Given 10/11/2022 6:17 PM CDT 4 mg morphine injection 4 mg 4 mg, Intravenous, Once, 1 dose, On Sun10/11/22 at 1915 Given 10/11/2022 7:53 PM CDT 4 mg ondansetron (ZOFRAN) injection 4 mg 4 mg, Intravenous, Once, 1 dose, On Sun10/11/22 at 1715, IV push over 2-5 minutes. Given 10/11/2022 6:14 PM CDT 4 mg polyethylene glycol (GLYCOLAX) packet 1 packet 1 packet, Oral, Daily, First dose on Sun10/12/22 at 1030, Until Discontinued, Dissolve entire packet in 240 mL of water Given 10/12/2022 10:36 AM CDT 1 packet sodium chloride 0.9% bolus infusion 1,000 mL 1,000 mL, Intravenous, Administer over 30 Minutes, Once, 1 dose, On Sun10/11/22 at 1430 New Bag 10/11/2022 6:22 PM CDT 1,000 mLs sodium chloride 0.9% infusion at 75 mL/hr, Intravenous, Continuous, Starting on 10/13/22 at 0745, Until 10/14/22 at 0700 New Bag 10/13/2022 7:01 PM CDT 75 mL/hr New Bag 10/13/2022 8:17 AM CDT 75 mL/hr venlafaxine XR (EFFEXOR-XR) 24 hr capsule 37.5 mg 37.5 mg, Oral, Nightly at bedtime, First dose on Viky 10/12/22 at 0115, Until Discontinued, Swallow capsule whole or it may be opened and the contents sprinkled on applesauce. 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
--- OUTSIDE RECORDS SUMMARY | 2024-03-02 22:24 | XMS_ITS | Encounter Summary ---
Author Organization [facility] Address [address] [place] [address]. [place] [address] [place] [address] Care Team Providers Care Hatchery Attendant Name Role Phone Colton SILVEIRA MD, Abiodun Rushing Primary Care Provider Victoriano Langston MD Unavailable [phone] Encounter Details Date Type Department Care Team (Late st Contact Info) Description 09/12/2022 Hospital Follow-up Call [facility] Med/Surg [address] [place] [address] Teresa Amaya RN Social History Tobacco Use Types Packs/Day [...] Recorded Patient Health Questionnaire-2 Score 0 05/05/2022 [facility] - Occupational [...] slept in a fci (including now)? No 09/03/2022 Comments No Sex [...] documented in this encounter Progress Notes * Teresa Amaya RN - 09/12/2022 11:24 AM CDT Had no c/o any and states she would recommend the hospital. documented in this encounter Plan of Treatment Upcoming Encounters Date Type Department Care Team (Late st Contact Info) Description 03/14/2024 11:45 AM RESIDENTIAL TEAM LEADER Office Visit [facility] [phone] Marvin Mckeon MD [facility] [address] [place] [address] 03/20/2024 11:30 AM RESIDENTIAL TEAM LEADER Office Visit [facility] - [place] [address] [place] [phone] Abiodun Segura II, MD [address] [place] [address] documented as of this encounter Goals Goal Patient Goal Type Associated Problems Recent Progress Patient-Stated? Author Family - family caregiver with be involved in care transitions and discharge planning Lifestyle No Natty Cheek, RN documented as of this encounter Visit Diagnoses Not on filedocumented in this encounter Additional Health Concerns Assessment Noted Time PHQ-9 Depression Total Score: 0 03/08/19 9:30 AM RESIDENTIAL TEAM LEADER documented as of this encounter Care Teams Hatchery Attendant Relationship Specialty Start Date End Date Abiodun Segura II, MD [address] [place] [address] PCP - General FAMILY PRACTICE 03/09/21 [place] [address] [place] [address] PODIATRY/SURGERY 05/05/22 documented as of this encounter
--- OUTSIDE RECORDS SUMMARY | 2024-03-02 22:24 | XMS_ITS | Encounter Summary ---
Author Organization [facility] Address [address] [place] [address]. [place] [address] [place] [address] Care Team Providers Care Director Of Instruction Name Role Phone Colton SILVEIRA MD, Abiodun Rushing Primary Care Provider Victoriano Langston MD Unavailable [phone] Encounter Details Date Type Department Care Team (Latest Contact Info) Description 10/11/2022 Travel Social History Tobacco Use Types Packs/Day [...] Recorded Patient Health Questionnaire-2 Score 0 05/05/2022 [facility] - Occupational [...] or climbing stairs? Yes 10/11/2022 11:33 PM Amanda Ballesteros RN A ctive * Question Answer Date [...] st Contact Info) Description 03/14/2024 11:45 AM WEB APPLICATION TESTER Office Visit [facility] [phone] Marvin Mckeon MD [facility] [address] [place], [place] [address] 03/20/2024 11:30 AM WEB APPLICATION TESTER Office Visit [facility] Family [facility] - [place] [address] [place] [phone] Abiodun Segura II, MD [address] [place], [place] [id number] documented as of this encounter Goals Goal Patient Goal Type Associated Problems Recent Progress Patient-Stated? Author Family - family caregiver with be involved in care transitions and discharge planning Lifestyle No Natty Cheek, RN documented as of this encounter Visit Diagnoses Not on filedocumented in this encounter Additional Health Concerns Assessment Noted Time PHQ-9 Depression Total Score: 0 03/08/19 22 9:30 AM WEB APPLICATION TESTER documented as of this encounter Care Teams Director Of Instruction Relationship Specialty Start Date End Date Abiodun Segura II, MD [address] [place] [id number] PCP - General FAMILY PRACTICE 03/09/21 [place] [address] [place] [address] PODIATRY/SURGERY 05/05/22 documented as of this encounter
--- OUTSIDE RECORDS SUMMARY | 2024-03-02 22:24 | XMS_ITS | Encounter Summary ---
Author Organization [facility] Address [address] [place] [address]. [place] [address] [place] [address] Care Team Providers Care Belt Notcher Name Role Phone Colton SILVEIRA MD, Abiodun Rushing Primary Care Provider Victoriano Langston MD Unavailable Reason for Visit * Reason Comments Vomiting Abdominal Pain * Auth/Cert (Routine) Specialty Diagnoses / Procedures Referred By Contac t Referred To Contact Diagnoses Leukocytosis Intractable abdominal pain Intractable abdominal pain Procedures NONE Janelle Pimentel DO 1 [place] [address] Phone: tel: fax: Referral ID Status Reason Start Date Expiration Date Visits Re quested Visits Authorized [id number] 1 1 Encounter Details Date Type Department Care Team (Late st Contact Info) Description 10/16/2022 5:15 PM CDT - 10/16/2022 5:19 PM CDT Surgery [facility] Endo/[place] [address] Gurinder Saldivar MD [address] [phone] EGD WITH BIOPSY Surgery Details Date/Time Status Location OR Service Patient Class Case Class Case Type Trauma Case? 10/16/2022 5:15 PM Posted [facility] 2 Gastroenterology Inpatient No Panel 1 Procedure LRB Anes Op Region Wound Class Comments EGD WITH BIOPSY N/A General Clean Contamin ated gastric ulcer Surgeon Surgeon Role Service Panel Gurinder Saldivar MD Primary Gastroenterology 1 documented in [...] Recorded Patient Health Questionnaire-2 Score 0 05/05/2022 [facility] [place] of Occupat ional Health - Occupational Stress [...] money to buy more. Never true 09/04/19 Within the past 12 months, t he [...] slept in a mcfp (including now)? No 09/03/2022 Comments No Sex [...] may be found under the media tab. ER SETTER * Gigi Sutton RN - 10/13/2022 1:03 [...] Verified as per chart. Pharmacy: [facility] PCP: Abiodun Segura Insurance Plan: [facility] Discharge needs: Care Coordination Team will provide [...] daughter helps) Behavior Oriented;Cooperative Communication Talks;Understands speaking;Understands Norwegian DC screening tool This is a screening [...] may be found under the media tab. ER SETTER documented in this encounter H&P Notes * June Trujillo Horacio, BAG CHECKER-BC - 10/11/2022 10:38 PM CDT Hospitalist History [...] Charcot foot due to diabetes mellitus (HHS/HCC) ([facility]) LEFT FOOT Constipation COVID-19 Diabetes mellitus (HHS/HCC) ([facility]/HCC) Diabetic neuropathy (HHS/HCC) ([facility]) High cholesterol Hypertension Renal disorder had [...] No results for input(s): PH, PCO2, PO2, [id number], BICARBWB, BASEDEFICIT, BASEEXCESS in the [id number] hours. Imagining & Other Studies Results for orders placed or performed during the hospital encounter of 10/11/22 ECG 12 lead Narrative [place] Test Date: 2022-10-11 Pat Name: LENA YOUNGBLOOD Department: Room: Gender: Female Core Checker: [id number] : 1970 Requested By: TRE JOHN Order Number: [id number] Reading MD: Measurements Intervals [place] Rate: 98 P: 46 VA: 167 QRS: 17 QRSD: 77 T: 23 [...] Relationship to Patient Contact information marked private? HONORIO MAC [phone] Daughter No Ana Coronel [phone] Mother No Cali Youngblood [phone] Spouse No Admitted from: Home Expect to [...] note is not present as a professional outside industrial sales representative. this may occasionally confer an unintended meaning. Please reach out to provider so rectifications can bemade. JESSICA SALCEDO 10/12/22 Cosigned by Janelle Pimentel DO at 10/12/2022 7:03 AM CDT Associated attestation - Janelle Pimentel DO - 10/12/2022 7:03 AM CDT I have seen and examined the patient, and discussed the plan of care with June Leonard X RAY TECH. I reviewed her note and agree with [...] encounter of 10/11/22 ECG [address] [facility] Test Date: 2022-10-11 Pat Name: LENA YOUNGBLOOD Department: 41 Room: Gender: Female Core Checker: [id number] : 1970 Requested By: TRE JOHN Order Number: [id number] Reading MD: Measurements Intervals [place] Rate: 98 P: 46 VA: 167 QRS: 17 QRSD: 77 T: 23 [...] XR CHEST PORTABLE Final Result by User, [email or web address] (10/12 2219) CLINICAL HISTORY: Leukocytosis COMPARISON: 09/29/2022 TECHNIQUE: AP Portable View FINDINGS: Lungs are clear. No pneumothorax or pleural effusions evident. The cardiac silhouette, mediastinal contours, and pulmonary vessels appear within normal limits. No acute osseous abnormality. IMPRESSION: No acute findings. Referred By: Interpreted By: John Campos, 10/11/2022 10:[address] ABD+PEL W IV CON ONLY Final Result by User, [id number] (10/11 1936) EXAMINATION: CT ABD+PEL W CON CLINICAL HISTORY: Abdominal pain, vomiting COMPARISON: 09/24/2022, DATE/TIME: 10/11/2022 6:37 PM TECHNIQUE: Multiplanar CT [...] CYNTHIA Doyle - 10/11/2022 2:16 PM CDT [place], [place] EMERGENCY DEPARTMENT ENCOUNTER Medical Screening Examination [...] st Contact Info) Description 03/14/2024 11:45 AM TIMBER SETTER Office Visit [facility] [phone] Marvin Mckeon MD [address] [facility] [address] [place], [place] [id number] 03/20/2024 11:30 AM TIMBER SETTER Office Visit [facility] - [place] [address] [place] [phone] Abiodun Segura II, MD [address] [place], [place] [phone] documented as of this encounter Goals Goal [...] 10/12/2022 11:32 AM CDT POCT GLUCOSE - OCRREA DOCKED DEVICE Routine 10/12/2022 5:49 AM CDT [...] - 99 mg/dL 11/01/2022 11:01 AM CDT [facility] 10/20/2022 11:5 5 AM CDT us Farrukh Reed DO POCT ORDERABLES - DEVICE Final R esult [facility] [address] [place] [address], * (ABNORMAL) BASIC METABOLIC PANEL (10/20/2022 8:55 AM CDT) GLUCOSE 122(H) 70 - 99 MG/DL 11/17/2022 9:59 AM CDT [facility] BUN 18 7 - 18 MG/DL 11/17/2022 9:59 AM CDT [facility] CREATININE S/P/B 1.10(H) 0.55 - 1.02 MG/DL 11/17/2022 9:59 AM CDT [facility] SODIUM S/P/B 141 136 - 145 MMOL/L 11/17/2022 9:59 AM CDT [facility] POTASSIUM S/P/B 4.6 3.5 - 5.1 MMOL/L 11/17/2022 9:59 AM CDT [facility] CHLORIDE S/P/B 110(H) 100 - 108 MMOL/L 11/17/2022 9:59 AM CDT [facility] CO2 27.4 21 - 32 MMOL/L 11/17/2022 9:59 AM CDT [facility] CALCIUM S/P/B 8.5 8.5 - 10.1 MG/DL 11/17/2022 9:59 AM CDT [facility] ANION GAP 3.6(L) 5 - 15 MMOL/L 11/17/2022 9:59 AM CDT [facility] BUN CREATININE RATIO 16.4 6 - 26 11/17/2022 9:59 AM CDT [facility] GFR ESTIMATE 61(L) >90 ML/MIN/1.7 3 M2 11/17/2022 9:59 AM CDT [facility] Comment: NOTE: eGFR is not calculated for patients <18 years of age. This is an estimated GFR calculation using the new CKD EPI creatinine equation without race and so does not require a correction factor for race. This estimated GFR should not be used for calculating drug doses. 10/20/2022 8:55 AM CDT Ramesh Dexter DO LABORATORY Final Resul t Performing Organization Address City/[facility] Co de Phone Number [facility] [address] [place] [phone], * POCT glucose (10/20/2022 6:25 AM CDT) GLUCOSE POC 99 70 - 99 mg/dL 11/01/2022 11:01 AM CDT [facility] 10/20/2022 6:25 AM CDT Farrukh Reed DO POCT ORDERABLES - DEVICE Final R esult Performing Organization Address [facility] Co de Phone Number [facility] [address] [place] [address], [place] [phone] * (ABNORMAL) CBC W/DIFF AUTOMATED (10/20/2022 5:00 AM CDT) WBC 8.8 4.5 - 11.0 x10'3/uL 11/18/2022 1:27 PM CDT [facility] RBC 3.39(L) 4.20 - 5.40 x10'6/uL 11/18/2022 1:27 PM CDT [facility] HGB 10.2(L) 12.0 - 16.0 G/DL 11/18/2022 1:27 PM CDT [facility] HCT 32.4(L) 38.0 - 48.0 % 11/18/2022 1:27 PM CDT [facility] MCV 95.6 81.0 - 99.0 FL 11/18/2022 1:27 PM CDT [facility] MCH 30.1 27.0 - 31.0 PG 11/18/2022 1:27 PM CDT [facility] MCHC 31.5(L) 32.0 - 36.0 G/DL 11/18/2022 1:27 PM CDT [facility] RDW 14.7(H) 11.5 - 14.5 % 11/18/2022 1:27 PM CDT [facility] PLT 259 130 - 400 x10'3/uL 11/18/2022 1:27 PM CDT [facility] MPV 11.6 9.3 - 12.2 FL 11/18/2022 1:27 PM CDT [facility] DIFFERENTIAL TYPE AUTOMATED DIFFERENTIAL 11/18/2022 1:27 PM CDT [facility] NEUTROPHILS % 46.7 % 11/18/2022 1:27 PM CDT [facility] LYMPHOCYTES % 45.4 % 11/18/2022 1:27 PM CDT [facility] MONOCYTES % 5.2 % 11/18/2022 1:27 PM CDT [facility] EOSINOPHILS 1.8 % 11/18/2022 1:27 PM CDT [facility] BASOPHILS 0.7 % 11/18/2022 1:27 PM CDT [facility] IMMATURE GRANS % 0.2 % 11/19/19 1:27 PM CDT [facility] ABS. NEUTROPHILS TOTAL 4.11 1.80 - 7.70 x10'3/uL 11/18/2022 1:27 PM CDT [facility] ABS. LYMPHOCYTES 4.00 1.00 - 4.80 x10'3/uL 11/18/2022 1:27 PM CDT [facility] ABS. MONOCYTES 0.46 0.24 - 0.86 x10'3/uL 11/18/2022 1:27 PM CDT [facility] ABS. EOSINOPHILS 0.16 0.04 - 0.36 x10'3/uL 11/18/2022 1:27 PM CDT [facility] ABS. BASOPHILS 0.06 0.01 - 0.08 x10'3/uL 11/18/2022 1:27 PM CDT [facility] ABS. IMMATURE GRANULOCYTES 0.02 0.00 - 0.49 x10'3/uL 11/18/2022 1:27 PM CDT [facility] 10/20/2022 5:00 AM CDT Ramesh Dexter DO LABORATORY Final Resul t [facility] [address] [place] [address], [place] [phone] * (ABNORMAL) POCT glucose (10/19/2022 3:58 PM CDT) [facility] Signature GLUCOSE POC 130(H) 70 - 99 mg/dL 11/01/2022 11:19 AM CDT [facility] 10/19/2022 3:58 PM CDT Farrukh Reed DO POCT ORDERABLES - DEVICE Final R esult [facility] [address] [place] [address], * (ABNORMAL) POCT glucose (10/19/2022 11:57 AM CDT) GLUCOSE POC 153(H) 70 - 99 mg/dL 11/01/2022 4:44 PM CDT [facility] 10/19/2022 11:5 7 AM CDT Farrukh Saavedraan DO POCT ORDERABLES - DEVICE Final R esult [facility] [address] [place] [address], * (ABNORMAL) URINALYSIS WI REFLEX TO CULTURE (10/19/2022 4:50 AM CDT) SPECIMEN TYPE URINE CLEAN CATCH 11/17/2022 2:13 PM CDT [facility] COLOR (U) LIGHT YELLOW 11/17/2022 9:57 AM CDT [facility] TRANSPARENCY CLEAR 11/17/2022 9:57 AM CDT [facility] SPECIFIC GRAVITY (U) 1.012 1.001 - 1.030 11/17/2022 9:57 AM CDT [facility] U PH 6.0 5.0 - 9.0 11/17/2022 9:57 AM CDT [facility] LEUKOCYTES (U) NEGATIVE NEGATIVE 11/17/2022 9:57 AM CDT [facility] NITRITES NEGATIVE NEGATIVE 11/17/2022 9:57 AM CDT [facility] PROTEIN RANDOM (U) NEGATIVE <30 MG/DL 11/17/2022 9:57 AM CDT [facility] GLUCOSE (U) NORMAL NORMAL MG/DL 11/17/2022 9:57 AM CDT [facility] KETONES MG/DL (U) NEGATIVE NEGATIVE MG/DL 11/17/2022 9:57 AM CDT [facility] UROBILINOGEN NORMAL NORMAL MG/DL 11/17/2022 9:57 AM CDT [facility] BILIRUBIN (U) NEGATIVE NEGATIVE MG/DL 11/17/2022 9:57 AM CDT [facility] BLOOD (U) NEGATIVE NEGATIVE 11/17/2022 9:57 AM CDT [facility] CULTURE & SENSITIVITY INDICATED? CULTURE IS NOT INDICATED 11/17/2022 9:57 AM CDT [facility] RBC/HPF <1 <6 /HPF 11/17/2022 9:57 AM CDT [facility] WBC/HPF 3 <6 /HPF 11/17/2022 9:57 AM CDT [facility] BACTERIA (U) RARE(A) NONE /HPF 11/17/2022 9:57 AM CDT [facility] SQUAMOUS EPITHELIALS RARE /HPF 11/17/2022 9:57 AM CDT [facility] MUCUS RARE /LPF 11/17/2022 9:57 AM CDT [facility] 10/19/2022 4:50 AM CDT us Ramesh Dexter DO URINE ORDERABLES Final Resu lt [facility] [address] [place] [address], [place] [phone] * (ABNORMAL) COMPREHENSIVE METABOLIC PANEL (10/19/2022 3:44 AM CDT) GLUCOSE 178(H) 70 - 99 MG/DL 11/17/2022 9:56 AM CDT [facility] BUN 22(H) 7 - 18 MG/DL 11/17/2022 9:56 AM T [facility] CREATININE S/P/B 1.28(H) 0.55 - 1.02 MG/DL 11/17/2022 9:56 AM CDT [facility] SODIUM S/P/B 137 136 - 145 MMOL/L 11/17/2022 9:56 AM CDT [facility] POTASSIUM S/P/B 4.2 3.5 - 5.1 MMOL/L 11/17/2022 9:56 AM T [facility] CHLORIDE S/P/B 106 100 - 108 MMOL/L 11/17/2022 9:56 AM CDT [facility] CO2 30.3 21 - 32 MMOL/L 11/17/2022 9:56 AM T [facility] CALCIUM S/P/B 8.5 8.5 - 10.1 MG/DL 11/17/2022 9:56 AM T [facility] BILIRUBIN TOTAL S/P/B 0.5 0.2 - 1.2 MG/DL 11/17/2022 9:56 AM T [facility] Comment: THIS ASSAY IS NOT RECOMMENDED FOR PATIENTS UNDERGOING TREATMENT WITH ELTROMBOPAG DUE TO THE POTENTIAL FOR FALSELY ELEVATED RESULTS. TOTAL PROTEIN S/P/B 7.4 6.4 - 8.2 G/DL 11/17/2022 9:56 AM T [facility] ALBUMIN S/P/B 2.8(L) 3.4 - 5.0 G/DL 11/17/2022 9:56 AM T [facility] AST 12(L) 15 - 37 U/L 11/17/2022 9:56 AM T [facility] ALT 21 14 - 55 U/L 11/17/2022 9:56 AM CDT [facility] ALKALINE PHOSPHATASE S/P/B 129 50 - 136 U/L 11/17/2022 9:56 AM CDT [facility] ANION GAP 0.7(L) 5 - 15 MMOL/L 11/17/2022 9:56 AM CDT [facility] BUN CREATININE RATIO 17.2 6 - 26 11/17/2022 9:56 AM CDT [facility] A/G RATIO 0.6(L) 1.0 - 2.0 RATIO 11/17/2022 9:56 AM CDT [facility] GFR ESTIMATE 51(L) >90 ML/MIN/1.7 3 M2 11/17/2022 9:56 AM CDT [facility] Comment: NOTE: eGFR is not calculated for patients <18 years of age. This is an estimated GFR calculation using the new CKD EPI creatinine equation without race and so does not require a correction factor for race. This estimated GFR should not be used for calculating drug doses. 10/19/2022 3:44 AM CDT Ramesh Dexter DO LABORATORY Final Resul t [facility] [address] [place] [address], * (ABNORMAL) CBC W/DIFF AUTOMATED (10/19/2022 3:44 AM CDT) WBC 9.8 4.5 - 11.0 x10'3/uL 11/18/2022 1:22 PM CDT [facility] RBC 3.51(L) 4.20 - 5.40 x10'6/uL 11/18/2022 1:22 PM CDT [facility] HGB 10.6(L) 12.0 - 16.0 G/DL 11/18/2022 1:22 PM CDT [facility] HCT 32.4(L) 38.0 - 48.0 % 11/18/2022 1:22 PM CDT [facility] MCV 92.3 81.0 - 99.0 FL 11/18/2022 1:22 PM CDT [facility] MCH 30.2 27.0 - 31.0 PG 11/18/2022 1:22 PM CDT [facility] MCHC 32.7 32.0 - 36.0 G/DL 11/18/2022 1:22 PM CDT [facility] RDW 13.2 11.5 - 14.5 % 11/18/2022 1:22 PM CDT [facility] PLT 270 130 - 400 x10'3/uL 11/18/2022 1:22 PM CDT [facility] MPV 11.6 9.3 - 12.2 FL 11/18/2022 1:22 PM CDT [facility] DIFFERENTIAL TYPE AUTOMATED DIFFERENTIAL 11/18/2022 1:22 PM CDT [facility] NEUTROPHILS % 53.8 % 11/18/2022 1:22 PM CDT [facility] LYMPHOCYTES % 38.5 % 11/18/2022 1:22 PM CDT [facility] MONOCYTES % 6.0 % 11/18/2022 1:22 PM CDT [facility] EOSINOPHILS 1.0 % 11/18/2022 1:22 PM CDT [facility] BASOPHILS 0.4 % 11/18/2022 1:22 PM CDT [facility] IMMATURE GRANS % 0.3 % 11/19/19 1:22 PM CDT [facility] ABS. NEUTROPHILS TOTAL 5.25 1.80 - 7.70 x10'3/uL 11/18/2022 1:22 PM CDT [facility] ABS. LYMPHOCYTES 3.76 1.00 - 4.80 x10'3/uL 11/18/2022 1:22 PM CDT [facility] ABS. MONOCYTES 0.59 0.24 - 0.86 x10'3/uL 11/18/2022 1:22 PM CDT [facility] ABS. EOSINOPHILS 0.10 0.04 - 0.36 x10'3/uL 11/18/2022 1:22 PM CDT [facility] ABS. BASOPHILS 0.04 0.01 - 0.08 x10'3/uL 11/18/2022 1:22 PM CDT [facility] ABS. IMMATURE GRANULOCYTES 0.03 0.00 - 0.49 x10'3/uL 11/18/2022 1:22 PM CDT [facility] 10/19/2022 3:44 AM CDT Ramesh Dexter DO LABORATORY Final Resul t Performing Organization Address City/[facility]/ZIP Co de Phone Number [facility] [address] [place] [address], [place] [phone] * (ABNORMAL) POCT glucose (10/18/2022 4:35 PM CDT) [facility] GLUCOSE POC 139(H) 70 - 99 mg/dL 11/01/2022 4:44 PM CDT [facility] 10/18/2022 4:35 PM CDT Farrukh Reed DO POCT ORDERABLES - DEVICE Final R esult [facility] [address] [place] [address], [place] [phone] * POCT glucose (10/18/2022 11:31 AM CDT) GLUCOSE POC 83 70 - 99 mg/dL 11/01/2022 4:16 PM CDT [facility] 10/18/2022 11:3 1 AM CDT us Toimaria c Reed DO POCT ORDERABLES - DEVICE Final R esult [facility] [address] [place] [address], [place] [phone] * US ABD LIMITED (10/18/2022 10:45 AM CDT) Anatomical Region Laterality Modality Abdomen Ultrasound 01/20/2023 11:2 5 AM TIMBER SETTER Impressions 01/20/2023 11:28 AM TIMBER SETTER IMPRESSION: 1. Partially imaged right-sided hydronephrosis. 2. [...] 01/20/2023 11:25 AM Narrative 01/20/2023 11:28 AM TIMBER SETTER EXAMINATION: Limited abdomen ultrasound: RUQ CLINICAL HISTORY: [...] COMPREHENSIVE METABOLIC PANEL (10/18/2022 5:07 AM CDT) GLUCOSE 79 70 - 99 MG/DL 11/17/2022 9:55 AM CDT [facility] BUN 23(H) 7 - 18 MG/DL 11/17/2022 9:55 AM CDT [facility] CREATININE S/P/B 1.37(H) 0.55 - 1.02 MG/DL 11/17/2022 9:55 AM CDT [facility] SODIUM S/P/B 135(L) 136 - 145 MMOL/L 11/17/2022 9:55 AM CDT [facility] POTASSIUM S/P/B 4.2 3.5 - 5.1 MMOL/L 11/17/2022 9:55 AM CDT [facility] CHLORIDE S/P/B 102 100 - 108 MMOL/L 11/17/2022 9:55 AM CDT [facility] CO2 31.6 21 - 32 MMOL/L 11/17/2022 9:55 AM CDT [facility] CALCIUM S/P/B 9.2 8.5 - 10.1 MG/DL 11/17/2022 9:55 AM CDT [facility] BILIRUBIN TOTAL S/P/B 0.4 0.2 - 1.2 MG/DL 11/17/2022 9:55 AM CDT [facility] Comment: THIS ASSAY IS NOT RECOMMENDED FOR PATIENTS UNDERGOING TREATMENT WITH ELTROMBOPAG DUE TO THE POTENTIAL FOR FALSELY ELEVATED RESULTS. TOTAL PROTEIN S/P/B 8.6(H) 6.4 - 8.2 G/DL 11/17/2022 9:55 AM CDT [facility] ALBUMIN S/P/B 3.4 3.4 - 5.0 G/DL 11/17/2022 9:55 AM CDT [facility] AST 19 15 - 37 U/L 11/17/2022 9:55 AM CDT [facility] ALT 23 14 - 55 U/L 11/17/2022 9:55 AM CDT [facility] ALKALINE PHOSPHATASE S/P/B 141(H) 50 - 136 U/L 11/17/2022 9:55 AM CDT [facility] ANION GAP 1.4(L) 5 - 15 MMOL/L 11/17/2022 9:55 AM CDT [facility] BUN CREATININE RATIO 16.8 6 - 26 11/17/2022 9:55 AM T [facility] A/G RATIO 0.7(L) 1.0 - 2.0 RATIO 11/17/2022 9:55 AM T [facility] GFR ESTIMATE 47(L) >90 ML/MIN/1.7 3 M2 11/17/2022 9:55 AM CDT [facility] Comment: NOTE: eGFR is not calculated for patients <18 years of age. This is an estimated GFR calculation using the new CKD EPI creatinine equation without race and so does not require a correction factor for race. This estimated GFR should not be used for calculating drug doses. 10/18/2022 5:07 AM CDT Ramesh Dexter DO LABORATORY Final Resul t [facility] [address] [place] [address], [place] [phone] * (ABNORMAL) CBC W/DIFF AUTOMATED (10/18/2022 5:07 AM CDT) [facility] WBC 9.5 4.5 - 11.0 x10'3/uL 11/17/2022 6:08 PM CDT [facility] RBC 4.08(L) 4.20 - 5.40 x10'6/uL 11/17/2022 6:08 PM CDT [facility] HGB 12.5 12.0 - 16.0 G/DL 11/17/2022 6:08 PM CDT [facility] HCT 37.2(L) 38.0 - 48.0 % 11/17/2022 6:08 PM CDT [facility] MCV 91.2 81.0 - 99.0 FL 11/17/2022 6:08 PM CDT [facility] MCH 30.6 27.0 - 31.0 PG 11/17/2022 6:08 PM CDT [facility] MCHC 33.6 32.0 - 36.0 G/DL 11/17/2022 6:08 PM CDT [facility] RDW 13.0 11.5 - 14.5 % 11/17/2022 6:08 PM CDT [facility] PLT 291 130 - 400 x10'3/uL 11/17/2022 6:08 PM CDT [facility] MPV 11.3 9.3 - 12.2 FL 11/17/2022 6:08 PM CDT [facility] NEUTROPHILS % 63.0 % 11/17/2022 6:09 PM CDT [facility] LYMPHOCYTES % 30.0 % 11/17/2022 6:09 PM CDT [facility] MONOCYTES % 6.0 % 11/17/2022 6:09 PM CDT [facility] EOSINOPHILS 1.0 % 11/17/2022 6:09 PM CDT [facility] ABS. LYMPHOCYTES 2.85 1.00 - 4.80 x10'3/uL 11/17/2022 6:09 PM CDT [facility] ABS. NEUTROPHILS TOTAL 5.98 1.80 - 7.70 x10'3/uL 11/17/2022 6:09 PM CDT [facility] ABS. MONOCYTES 0.57 0.24 - 0.86 x10'3/uL 11/17/2022 6:09 PM CDT [facility] ABS. EOSINOPHILS 0.10 0.04 - 0.36 x10'3/uL 11/17/2022 6:09 PM CDT [facility] DIFFERENTIAL TYPE AUTOMATED DIFFERENTIAL 11/17/2022 6:09 PM CDT [facility] PLT EST. ADEQUATE 11/17/2022 6:09 PM CDT [facility] 10/18/2022 5:07 AM CDT Ramesh Dexter DO LABORATORY Final Resul t [facility] [address] [place] [address], [place] [phone] * (ABNORMAL) URINALYSIS WI REFLEX TO CULTURE (10/17/2022 10:30 PM CDT) SPECIMEN TYPE URINE CLEAN CATCH 11/17/2022 2:08 PM CDT [facility] COLOR (U) LIGHT YELLOW 11/17/2022 9:54 AM CDT [facility] TRANSPARENCY CLEAR 11/17/2022 9:54 AM CDT [facility] SPECIFIC GRAVITY (U) 1.015 1.001 - 1.030 11/17/2022 9:54 AM CDT [facility] U PH 5.5 5.0 - 9.0 11/17/2022 9:54 AM T [facility] LEUKOCYTES (U) NEGATIVE NEGATIVE 11/17/2022 9:54 AM T [facility] NITRITES NEGATIVE NEGATIVE 11/17/2022 9:54 AM T [facility] PROTEIN RANDOM (U) 20 <30 MG/DL 11/17/2022 9:54 AM T [facility] GLUCOSE (U) NORMAL NORMAL MG/DL 11/17/2022 9:54 AM T [facility] KETONES MG/DL (U) NEGATIVE NEGATIVE MG/DL 11/17/2022 9:54 AM [facility] UROBILINOGEN NORMAL NORMAL MG/DL 11/17/2022 9:54 AM T [facility] BILIRUBIN (U) NEGATIVE NEGATIVE MG/DL 11/17/2022 9:54 AM T [facility] BLOOD (U) NEGATIVE NEGATIVE 11/17/2022 9:54 AM [facility] CULTURE & SENSITIVITY INDICATED? CULTURE IS NOT INDICATED 11/17/2022 9:54 AM T [facility] RBC/HPF 1 <6 /HPF 11/17/2022 9:54 AM T [facility] WBC/HPF 4 <6 /HPF 11/17/2022 9:54 AM T [facility] BACTERIA (U) FEW(A) NONE /HPF 11/17/2022 9:54 AM T [facility] SQUAMOUS EPITHELIALS RARE /HPF 11/17/2022 9:54 AM T [facility] MUCUS RARE /LPF 11/17/2022 9:54 AM T [facility] 10/17/2022 10:3 0 PM CDT Ramesh Dexter DO URINE ORDERABLES Final Resu lt Performing Organization Address [facility] Co de Phone Number [facility] [address] [place] [id number], [place] [phone] * (ABNORMAL) POCT glucose (10/17/2022 4:47 PM CDT) GLUCOSE POC 162(H) 70 - 99 mg/dL 11/01/2022 4:44 PM CDT [facility] 10/17/2022 4:47 PM CDT Toimaria c Reed POCT ORDERABLES - DEVICE Final R esult Performing Organization Address [facility] Co de Phone Number [facility] [address] [place] [address], [place] [phone] * (ABNORMAL) POCT glucose (10/17/2022 10:43 AM CDT) GLUCOSE POC 62(L) 70 - 99 mg/dL 11/01/2022 4:44 PM CDT [facility] 10/17/2022 10:4 3 AM CDT Toimaria c Reed DO POCT ORDERABLES - DEVICE Final R esult Performing Organization Address City/[facility] Co de Phone Number [facility] [address] [place] [address], [place] [phone] * (ABNORMAL) CBC W/DIFF AUTOMATED (10/17/2022 6:00 AM CDT) WBC 8.4 4.5 - 11.0 x10'3/uL 11/17/2022 5:59 PM CDT [facility] RBC 3.90(L) 4.20 - 5.40 x10'6/uL 11/17/2022 5:59 PM CDT [facility] HGB 11.6(L) 12.0 - 16.0 G/DL 11/17/2022 5:59 PM CDT [facility] HCT 35.6(L) 38.0 - 48.0 % 11/17/2022 5:59 PM CDT [facility] MCV 91.3 81.0 - 99.0 FL 11/17/2022 5:59 PM CDT [facility] MCH 29.7 27.0 - 31.0 PG 11/17/2022 5:59 PM CDT [facility] MCHC 32.6 32.0 - 36.0 G/DL 11/17/2022 5:59 PM CDT [facility] RDW 13.2 11.5 - 14.5 % 11/17/2022 5:59 PM CDT [facility] PLT 290 130 - 400 x10'3/uL 11/17/2022 5:59 PM CDT [facility] MPV 11.2 9.3 - 12.2 FL 11/17/2022 5:59 PM CDT [facility] NEUTROPHILS % 56.0 % 11/17/2022 5:59 PM CDT [facility] LYMPHOCYTES % 36.0 % 11/17/2022 5:59 PM CDT [facility] MONOCYTES % 6.0 % 11/17/2022 5:59 PM CDT [facility] EOSINOPHILS 2.0 % 11/17/2022 5:59 PM CDT [facility] ABS. LYMPHOCYTES 3.02 1.00 - 4.80 x10'3/uL 11/17/2022 5:59 PM CDT [facility] ABS. NEUTROPHILS TOTAL 4.71 1.80 - 7.70 x10'3/uL 11/17/2022 5:59 PM CDT [facility] ABS. MONOCYTES 0.50 0.24 - 0.86 x10'3/uL 11/17/2022 5:59 PM CDT [facility] ABS. EOSINOPHILS 0.17 0.04 - 0.36 x10'3/uL 11/17/2022 5:59 PM CDT [facility] DIFFERENTIAL TYPE AUTOMATED DIFFERENTIAL 11/17/2022 5:59 PM CDT [facility] PLT EST. ADEQUATE 11/17/2022 5:59 PM CDT [facility] 10/17/2022 6:00 AM CDT us Ramesh Dexter DO LABORATORY Final Resul t [facility] [address] [place] [address], * (ABNORMAL) BASIC METABOLIC PANEL (10/17/2022 6:00 AM CDT) GLUCOSE 138(H) 70 - 99 MG/DL 11/17/2022 9:52 AM CDT [facility] BUN 17 7 - 18 MG/DL 11/17/2022 9:52 AM CDT [facility] CREATININE S/P/B 1.17(H) 0.55 - 1.02 MG/DL 11/17/2022 9:52 AM CDT [facility] SODIUM S/P/B 139 136 - 145 MMOL/L 11/17/2022 9:52 AM CDT [facility] POTASSIUM S/P/B 4.2 3.5 - 5.1 MMOL/L 11/17/2022 9:52 AM CDT [facility] CHLORIDE S/P/B 104 100 - 108 MMOL/L 11/17/2022 9:52 AM CDT [facility] CO2 28.2 21 - 32 MMOL/L 11/17/2022 9:52 AM CDT [facility] CALCIUM S/P/B 9.2 8.5 - 10.1 MG/DL 11/17/2022 9:52 AM CDT [facility] ANION GAP 6.8 5 - 15 MMOL/L 11/17/2022 9:52 AM CDT [facility] BUN CREATININE RATIO 14.5 6 - 26 11/17/2022 9:52 AM CDT [facility] GFR ESTIMATE 56(L) >90 ML/MIN/1.7 3 M2 11/17/2022 9:52 AM CDT [facility] Comment: NOTE: eGFR is not calculated for patients <18 years of age. This is an estimated GFR calculation using the new CKD EPI creatinine equation without race and so does not require a correction factor for race. This estimated GFR should not be used for calculating drug doses. 10/17/2022 6:00 AM CDT Ramesh Dexter DO LABORATORY Final Resul t [facility] [address] [place] [address], [place] [phone] * POCT glucose (10/16/2022 4:07 PM CDT) [facility] GLUCOSE POC 99 70 - 99 mg/dL 11/01/2022 4:44 PM CDT [facility] 10/16/2022 4:07 PM CDT us Farrukh Reed DO POCT ORDERABLES - DEVICE Final R esult [facility] [address] [place] [address], [place] [phone] * (ABNORMAL) POCT glucose (10/16/2022 10:28 AM CDT) GLUCOSE POC 110(H) 70 - 99 mg/dL 11/01/2022 4:44 PM CDT [facility] 10/16/2022 10:2 8 AM CDT Farrukh Reed DO POCT ORDERABLES - DEVICE Final R esult Performing Organization Address City/[facility]/ZIP Co de Phone Number [facility] [address] [place] [address], [place] [phone] * POCT glucose (10/16/2022 7:19 AM CDT) GLUCOSE POC 87 70 - 99 mg/dL 11/01/2022 4:44 PM CDT [facility] 10/16/2022 7:19 AM CDT Farrukh Reed DO POCT ORDERABLES - DEVICE Final R esult Performing Organization Address City/[facility]/ZIP Co de Phone Number [facility] [address] [place] [address], [place] [phone] * (ABNORMAL) POCT glucose (10/15/2022 9:07 PM CDT) GLUCOSE POC 169(H) 70 - 99 mg/dL 11/01/2022 11:19 AM CDT [facility] 10/15/2022 9:07 PM CDT Farrukh Reed DO POCT ORDERABLES - DEVICE Final R esult Performing Organization Address City/[facility]/ZIP Co de Phone Number [facility] [address] [place] [address], [place] [phone] * (ABNORMAL) POCT glucose (10/15/2022 4:02 PM CDT) GLUCOSE POC 111(H) 70 - 99 mg/dL 11/01/2022 11:19 AM CDT [facility] 10/15/2022 4:02 PM CDT Farrukh Reed DO POCT ORDERABLES - DEVICE Final R esult Performing Organization Address City/[facility] Co de Phone Number [facility] [address] [place] [address], [place] [phone] * (ABNORMAL) POCT glucose (10/15/2022 11:53 AM CDT) GLUCOSE POC 126(H) 70 - 99 mg/dL 11/01/2022 11:19 AM CDT [facility] 10/15/2022 11:5 3 AM CDT Farrukh Reed DO POCT ORDERABLES - DEVICE Final R esult Performing Organization Address City/[facility]/ZIP Co de Phone Number [facility] [address] [place] [address], [place] [phone] * POCT glucose (10/15/2022 5:22 AM CDT) GLUCOSE POC 81 70 - 99 mg/dL 11/01/2022 11:19 AM CDT [facility] 10/15/2022 5:22 AM CDT Farrukh Reed POCT ORDERABLES - DEVICE Final R esult [facility] [address] [place] [address], * (ABNORMAL) COMPREHENSIVE METABOLIC PANEL (10/15/2022 5:15 AM CDT) GLUCOSE 92 70 - 99 MG/DL 10/28/2022 7:10 PM CDT [facility] BUN 12 7 - 18 MG/DL 10/28/2022 7:10 PM CDT [facility] CREATININE S/P/B 1.02 0.55 - 1.02 MG/DL 10/28/2022 7:10 PM CDT [facility] SODIUM S/P/B 140 136 - 145 MMOL/L 10/28/2022 7:10 PM CDT [facility] POTASSIUM S/P/B 4.2 3.5 - 5.1 MMOL/L 10/28/2022 7:10 PM CDT [facility] CHLORIDE S/P/B 109(H) 100 - 108 MMOL/L 10/28/2022 7:10 PM CDT [facility] CO2 26.9 21 - 32 MMOL/L 10/28/2022 7:10 PM CDT [facility] CALCIUM S/P/B 9.6 8.5 - 10.1 MG/DL 10/28/2022 7:10 PM CDT [facility] BILIRUBIN TOTAL S/P/B 0.3 0.2 - 1.2 MG/DL 10/28/2022 7:10 PM CDT [facility] Comment: THIS ASSAY IS NOT RECOMMENDED FOR PATIENTS UNDERGOING TREATMENT WITH ELTROMBOPAG DUE TO THE POTENTIAL FOR FALSELY ELEVATED RESULTS. TOTAL PROTEIN S/P/B 7.9 6.4 - 8.2 G/DL 10/28/2022 7:10 PM CDT [facility] ALBUMIN S/P/B 3.0(L) 3.4 - 5.0 G/DL 10/28/2022 7:10 PM CDT [facility] AST 19 15 - 37 U/L 10/28/2022 7:10 PM T [facility] ALT 24 14 - 55 U/L 10/28/2022 7:10 PM T [facility] ALKALINE PHOSPHATASE S/P/B 134 50 - 136 U/L 10/28/2022 7:10 PM T [facility] ANION GAP 4.1(L) 5 - 15 MMOL/L 10/28/2022 7:10 PM T [facility] BUN CREATININE RATIO 11.8 6 - 26 10/28/2022 7:10 PM [facility] A/G RATIO 0.6(L) 1.0 - 2.0 RATIO 10/28/2022 7:10 PM [facility] GFR ESTIMATE 67(L) >90 ML/MIN/1.7 3 M2 10/28/2022 7:10 PM T [facility] Comment: NOTE: eGFR is not calculated for patients <18 years of age. This is an estimated GFR calculation using the new CKD EPI creatinine equation without race and so does not require a correction factor for race. This estimated GFR should not be used for calculating drug doses. 10/15/2022 5:15 AM CDT us Nanda Cartagena MD LABORATORY Final Res ult [facility] [address] [place] [address], [place] [phone] * (ABNORMAL) CBC W/DIFF AUTOMATED (10/15/2022 5:15 AM CDT) [facility] WBC 8.7 4.5 - 11.0 x10'3/uL 10/28/2022 7:10 PM CDT [facility] RBC 3.82(L) 4.20 - 5.40 x10'6/uL 10/28/2022 7:10 PM CDT [facility] HGB 11.3(L) 12.0 - 16.0 G/DL 10/28/2022 7:10 PM CDT [facility] HCT 35.5(L) 38.0 - 48.0 % 10/28/2022 7:10 PM CDT [facility] MCV 92.9 81.0 - 99.0 FL 10/28/2022 7:10 PM CDT [facility] MCH 29.6 27.0 - 31.0 PG 10/28/2022 7:10 PM CDT [facility] MCHC 31.8(L) 32.0 - 36.0 G/DL 10/28/2022 7:10 PM CDT [facility] RDW 13.2 11.5 - 14.5 % 10/28/2022 7:10 PM CDT [facility] PLT 276 130 - 400 x10'3/uL 10/28/2022 7:10 PM CDT [facility] MPV 11.2 9.3 - 12.2 FL 10/28/2022 7:10 PM CDT [facility] DIFFERENTIAL TYPE AUTOMATED DIFFERENTIAL 10/28/2022 7:10 PM CDT [facility] NEUTROPHILS % 54.7 % 10/28/2022 7:10 PM CDT [facility] LYMPHOCYTES % 37.9 % 10/28/2022 7:10 PM CDT [facility] MONOCYTES % 5.2 % 10/28/2022 7:10 PM CDT [facility] EOSINOPHILS 1.4 % 10/28/2022 7:10 PM CDT [facility] BASOPHILS 0.5 % 10/28/2022 7:10 PM CDT [facility] IMMATURE GRANS % 0.3 % 10/29/19 7:10 PM CDT [facility] ABS. NEUTROPHILS TOTAL 4.77 1.80 - 7.70 x10'3/uL 10/28/2022 7:10 PM CDT [facility] ABS. LYMPHOCYTES 3.30 1.00 - 4.80 x10'3/uL 10/28/2022 7:10 PM CDT [facility] ABS. MONOCYTES 0.45 0.24 - 0.86 x10'3/uL 10/28/2022 7:10 PM CDT [facility] ABS. EOSINOPHILS 0.12 0.04 - 0.36 x10'3/uL 10/28/2022 7:10 PM CDT [facility] ABS. BASOPHILS 0.04 0.01 - 0.08 x10'3/uL 10/28/2022 7:10 PM CDT [facility] ABS. IMMATURE GRANULOCYTES 0.03 0.00 - 0.49 x10'3/uL 10/28/2022 7:10 PM CDT [facility] 10/15/2022 5:15 AM CDT us Nanda Cartagena MD LABORATORY Final Res ult [facility] [address] [place] [address], [place] [phone] * (ABNORMAL) POCT glucose (10/14/2022 8:51 PM CDT) GLUCOSE POC 148(H) 70 - 99 mg/dL 10/14/2022 8:52 PM CDT [facility] 10/14/2022 8:51 PM CDT Farrukh Reed DO POCT ORDERABLES - DEVICE Final R esult [facility] [address] [place] [address], [place] [phone] * (ABNORMAL) POCT glucose (10/14/2022 4:02 PM CDT) GLUCOSE POC 106(H) 70 - 99 mg/dL 10/14/2022 5:17 PM CDT [facility] 10/14/2022 4:02 PM CDT Farrukh Reed DO POCT ORDERABLES - DEVICE Final R esult [facility] [address] [place] [address], [place] [phone] * (ABNORMAL) POCT glucose (10/14/2022 11:38 AM CDT) GLUCOSE POC 129(H) 70 - 99 mg/dL 10/15/2022 2:14 AM CDT [facility] 10/14/2022 11:3 8 AM CDT Adnan Reed DO POCT ORDERABLES - DEVICE Final R esult [facility] [address] [place] [address], [place] [phone] * (ABNORMAL) COMPREHENSIVE METABOLIC PANEL (10/14/2022 4:34 AM CDT) [facility] GLUCOSE 115(H) 70 - 99 MG/DL 10/14/2022 5:10 AM CDT [facility] BUN 17 7 - 18 MG/DL 10/14/2022 5:10 AM CDT [facility] CREATININE S/P/B 1.09(H) 0.55 - 1.02 MG/DL 10/14/2022 5:10 AM CDT [facility] SODIUM S/P/B 139 136 - 145 MMOL/L 10/14/2022 5:10 AM CDT [facility] POTASSIUM S/P/B 4.1 3.5 - 5.1 MMOL/L 10/14/2022 5:10 AM CDT [facility] CHLORIDE S/P/B 108 100 - 108 MMOL/L 10/14/2022 5:10 AM CDT [facility] CO2 25.4 21 - 32 MMOL/L 10/14/2022 5:10 AM CDT [facility] CALCIUM S/P/B 8.9 8.5 - 10.1 MG/DL 10/14/2022 5:10 AM CDT [facility] BILIRUBIN TOTAL S/P/B 0.4 0.2 - 1.2 MG/DL 10/14/2022 5:10 AM CDT [facility] Comment: THIS ASSAY IS NOT RECOMMENDED FOR PATIENTS UNDERGOING TREATMENT WITH ELTROMBOPAG DUE TO THE POTENTIAL FOR FALSELY ELEVATED RESULTS. TOTAL PROTEIN S/P/B 8.0 6.4 - 8.2 G/DL 10/14/2022 5:10 AM CDT [facility] ALBUMIN S/P/B 3.0(L) 3.4 - 5.0 G/DL 10/14/2022 5:10 AM CDT [facility] AST 19 15 - 37 U/L 10/14/2022 5:10 AM CDT [facility] ALT 23 14 - 55 U/L 10/14/2022 5:10 AM CDT [facility] ALKALINE PHOSPHATASE S/P/B 120 50 - 136 U/L 10/14/2022 5:10 AM CDT [facility] ANION GAP 5.6 5 - 15 MMOL/L 10/14/2022 5:10 AM CDT [facility] BUN CREATININE RATIO 15.6 6 - 26 10/14/2022 5:10 AM CDT [facility] A/G RATIO 0.6(L) 1.0 - 2.0 RATIO 10/14/2022 5:10 AM CDT [facility] GFR ESTIMATE 62(L) >90 ML/MIN/1.7 3 M2 10/14/2022 5:10 AM CDT [facility] Comment: NOTE: eGFR is not calculated for patients <18 years of age. This is an estimated GFR calculation using the new CKD EPI creatinine equation without race and so does not require a correction factor for race. This estimated GFR should not be used for calculating drug doses. 10/14/2022 4:34 AM CDT us Nanda Cartagena MD LABORATORY Final Res ult [facility] [address] [place] [address], [place] [phone] * (ABNORMAL) CBC W/DIFF AUTOMATED (10/14/2022 4:34 AM CDT) [facility] WBC 10.3 4.5 - 11.0 x10'3/uL 10/14/2022 4:48 AM CDT [facility] RBC 3.86(L) 4.20 - 5.40 x10'6/uL 10/14/2022 4:48 AM CDT [facility] HGB 11.6(L) 12.0 - 16.0 G/DL 10/14/2022 4:48 AM CDT [facility] HCT 34.9(L) 38.0 - 48.0 % 10/14/2022 4:48 AM CDT [facility] MCV 90.4 81.0 - 99.0 FL 10/14/2022 4:48 AM CDT [facility] MCH 30.1 27.0 - 31.0 PG 10/14/2022 4:48 AM CDT [facility] MCHC 33.2 32.0 - 36.0 G/DL 10/14/2022 4:48 AM CDT [facility] RDW 13.1 11.5 - 14.5 % 10/14/2022 4:48 AM CDT [facility] PLT 298 130 - 400 x10'3/uL 10/14/2022 4:48 AM CDT [facility] MPV 11.2 9.3 - 12.2 FL 10/14/2022 4:48 AM CDT [facility] DIFFERENTIAL TYPE AUTOMATED DIFFERENTIAL 10/14/2022 4:48 AM CDT [facility] NEUTROPHILS % 61.5 % 10/14/2022 4:48 AM CDT [facility] LYMPHOCYTES % 32.1 % 10/14/2022 4:48 AM CDT [facility] MONOCYTES % 4.1 % 10/14/2022 4:48 AM CDT [facility] EOSINOPHILS 1.4 % 10/14/2022 4:48 AM CDT [facility] BASOPHILS 0.5 % 10/14/2022 4:48 AM CDT [facility] IMMATURE GRANS % 0.4 % 10/15/19 4:48 AM CDT [facility] ABS. NEUTROPHILS TOTAL 6.32 1.80 - 7.70 x10'3/uL 10/14/2022 4:48 AM CDT [facility] ABS. LYMPHOCYTES 3.29 1.00 - 4.80 x10'3/uL 10/14/2022 4:48 AM CDT [facility] ABS. MONOCYTES 0.42 0.24 - 0.86 x10'3/uL 10/14/2022 4:48 AM CDT [facility] ABS. EOSINOPHILS 0.14 0.04 - 0.36 x10'3/uL 10/14/2022 4:48 AM CDT [facility] ABS. BASOPHILS 0.05 0.01 - 0.08 x10'3/uL 10/14/2022 4:48 AM CDT [facility] ABS. IMMATURE GRANULOCYTES 0.04 0.00 - 0.49 x10'3/uL 10/14/2022 4:48 AM CDT [facility] 10/14/2022 4:34 AM CDT us Nanda Cartagena MD LABORATORY Final Res ult [facility] [address] [place] [address], [place] [phone] * (ABNORMAL) POCT glucose (10/13/2022 8:36 PM CDT) GLUCOSE POC 130(H) 70 - 99 mg/dL 10/13/2022 8:38 PM CDT [facility] 10/13/2022 8:36 PM CDT us Holli Murray MD POCT ORDERABLES - DEVICE Fin al Result [facility] [address] [place] [address], [place] [phone] * (ABNORMAL) POCT glucose (10/13/2022 4:18 PM CDT) GLUCOSE POC 126(H) 70 - 99 mg/dL 10/13/2022 4:21 PM CDT [facility] 10/13/2022 4:18 PM CDT us Holli Murray MD POCT ORDERABLES - DEVICE Fin al Result Performing Organization Address City/[facility]/ZIP Co de Phone Number [facility] [address] [place] [address], [place] [phone] * (ABNORMAL) POCT glucose (10/13/2022 11:20 AM CDT) GLUCOSE POC 104(H) 70 - 99 mg/dL 10/13/2022 11:46 AM CDT [facility] 10/13/2022 11:2 0 AM CDT us Holli Murray MD POCT ORDERABLES - DEVICE Fin al Result Performing Organization Address City/[facility]/ZIP Co de Phone Number [facility] [address] [place] [address], [place] [phone] * (ABNORMAL) COMPREHENSIVE METABOLIC PANEL (10/13/2022 5:15 AM CDT) [facility] GLUCOSE 156(H) 70 - 99 MG/DL 10/13/2022 5:56 AM CDT [facility] BUN 15 7 - 18 MG/DL 10/13/2022 5:56 AM CDT [facility] CREATININE S/P/B 1.57(H) 0.55 - 1.02 MG/DL 10/13/2022 5:56 AM CDT [facility] SODIUM S/P/B 134(L) 136 - 145 MMOL/L 10/13/2022 5:56 AM CDT [facility] POTASSIUM S/P/B 3.8 3.5 - 5.1 MMOL/L 10/13/2022 5:56 AM CDT [facility] CHLORIDE S/P/B 100 100 - 108 MMOL/L 10/13/2022 5:56 AM CDT [facility] CO2 25.5 21 - 32 MMOL/L 10/13/2022 5:56 AM CDT [facility] CALCIUM S/P/B 8.9 8.5 - 10.1 MG/DL 10/13/2022 5:56 AM CDT [facility] BILIRUBIN TOTAL S/P/B 0.4 0.2 - 1.2 MG/DL 10/13/2022 5:56 AM CDT [facility] Comment: THIS ASSAY IS NOT RECOMMENDED FOR PATIENTS UNDERGOING TREATMENT WITH ELTROMBOPAG DUE TO THE POTENTIAL FOR FALSELY ELEVATED RESULTS. TOTAL PROTEIN S/P/B 8.3(H) 6.4 - 8.2 G/DL 10/13/2022 5:56 AM CDT [facility] ALBUMIN S/P/B 3.2(L) 3.4 - 5.0 G/DL 10/13/2022 5:56 AM CDT [facility] AST 15 15 - 37 U/L 10/13/2022 5:56 AM CDT [facility] ALT 24 14 - 55 U/L 10/13/2022 5:56 AM CDT [facility] ALKALINE PHOSPHATASE S/P/B 124 50 - 136 U/L 10/13/2022 5:56 AM CDT [facility] ANION GAP 8.5 5 - 15 MMOL/L 10/13/2022 5:56 AM CDT [facility] BUN CREATININE RATIO 9.6 6 - 26 10/13/2022 5:56 AM CDT [facility] A/G RATIO 0.6(L) 1.0 - 2.0 RATIO 10/13/2022 5:56 AM CDT [facility] GFR ESTIMATE 40(L) >90 ML/MIN/1.7 3 M2 10/13/2022 5:56 AM CDT [facility] Comment: NOTE: eGFR is not calculated for patients <18 years of age. This is an estimated GFR calculation using the new CKD EPI creatinine equation without race and so does not require a correction factor for race. This estimated GFR should not be used for calculating drug doses. 10/13/2022 5:15 AM CDT June Leonard NP LABORATORY Final Result [facility] [address] [place] [address], [place] [phone] * (ABNORMAL) CBC W/DIFF AUTOMATED (10/13/2022 5:15 AM CDT) WBC 11.7(H) 4.5 - 11.0 x10'3/uL 10/13/2022 5:29 AM CDT [facility] RBC 3.85(L) 4.20 - 5.40 x10'6/uL 10/13/2022 5:29 AM CDT [facility] HGB 11.4(L) 12.0 - 16.0 G/DL 10/13/2022 5:29 AM CDT [facility] HCT 34.5(L) 38.0 - 48.0 % 10/13/2022 5:29 AM CDT [facility] MCV 89.6 81.0 - 99.0 FL 10/13/2022 5:29 AM CDT [facility] MCH 29.6 27.0 - 31.0 PG 10/13/2022 5:29 AM CDT [facility] MCHC 33.0 32.0 - 36.0 G/DL 10/13/2022 5:29 AM CDT [facility] RDW 13.1 11.5 - 14.5 % 10/13/2022 5:29 AM CDT [facility] PLT 303 130 - 400 x10'3/uL 10/13/2022 5:29 AM CDT [facility] MPV 11.0 9.3 - 12.2 FL 10/13/2022 5:29 AM CDT [facility] DIFFERENTIAL TYPE AUTOMATED DIFFERENTIAL 10/13/2022 5:29 AM CDT [facility] NEUTROPHILS % 65.4 % 10/13/2022 5:29 AM CDT [facility] LYMPHOCYTES % 28.4 % 10/13/2022 5:29 AM CDT [facility] MONOCYTES % 4.7 % 10/13/2022 5:29 AM CDT [facility] EOSINOPHILS 0.8 % 10/13/2022 5:29 AM CDT [facility] BASOPHILS 0.4 % 10/13/2022 5:29 AM CDT [facility] IMMATURE GRANS % 0.3 % 10/14/19 5:29 AM CDT [facility] ABS. NEUTROPHILS TOTAL 7.62 1.80 - 7.70 x10'3/uL 10/13/2022 5:29 AM CDT [facility] ABS. LYMPHOCYTES 3.31 1.00 - 4.80 x10'3/uL 10/13/2022 5:29 AM CDT [facility] ABS. MONOCYTES 0.55 0.24 - 0.86 x10'3/uL 10/13/2022 5:29 AM CDT [facility] ABS. EOSINOPHILS 0.09 0.04 - 0.36 x10'3/uL 10/13/2022 5:29 AM CDT [facility] ABS. BASOPHILS 0.05 0.01 - 0.08 x10'3/uL 10/13/2022 5:29 AM CDT [facility] ABS. IMMATURE GRANULOCYTES 0.04 0.00 - 0.49 x10'3/uL 10/13/2022 5:29 AM CDT [facility] 10/13/2022 5:15 AM CDT us June Leonard NP LABORATORY Final Result [facility] [address] [place] [address], [place] [phone] * (ABNORMAL) C-REACTIVE PROTEIN (10/13/2022 5:15 AM CDT) C-REACTIVE PROTEIN 4.05(H) <0.29 mg/dL 10/13/2022 5:56 AM CDT [facility] 10/13/2022 5:15 AM CDT June Leonard X RAY TECH LABORATORY Final Result Performing Organization Address [facility] Co de Phone Number [facility] [address] [place] [id number], [place] [phone] * (ABNORMAL) SED RATE, ERYTHROCYTE (ESR) (10/13/2022 5:15 AM CDT) ESR 74(H) <30 MM/HR 10/13/2022 5:35 AM CDT [facility] Comment:Testing performed on [employer] iSED. 10/13/2022 5:15 AM CDT June Leonard X RAY TECH LABORATORY Final Result Performing Organization Address [facility] Co de Phone Number [facility] [address] [place] [id number], [place] [phone] * (ABNORMAL) POCT glucose (10/12/2022 10:18 PM CDT) GLUCOSE POC 153(H) 70 - 99 mg/dL 10/12/2022 10:20 PM CDT [facility] 10/12/2022 10:1 8 PM CDT Holli Murray MD POCT ORDERABLES - DEVICE Fin al Result Performing Organization Address [facility] Co de Phone Number [facility] [address] [place] [id number], [place] [phone] * (ABNORMAL) POCT glucose (10/12/2022 9:19 PM CDT) GLUCOSE POC 58(L) 70 - 99 mg/dL 10/12/2022 9:21 PM CDT [facility] 10/12/2022 9:19 PM CDT us Holli Murray MD POCT ORDERABLES - DEVICE Fin al Result [facility] [address] [place] [id number], [place] [phone] * POCT glucose (10/12/2022 8:30 PM CDT) GLUCOSE POC 77 70 - 99 mg/dL 10/12/2022 8:32 PM CDT [facility] 10/12/2022 8:30 PM CDT us Holli Murray MD POCT ORDERABLES - DEVICE Fin al Result Performing Organization Address [place]/[facility] Co de Phone Number [facility] [address] [place] [phone], [place] [phone] * (ABNORMAL) POCT glucose (10/12/2022 4:48 PM CDT) GLUCOSE POC 144(H) 70 - 99 mg/dL 10/12/2022 4:58 PM CDT [facility] 10/12/2022 4:48 PM CDT us Holli Murray MD POCT ORDERABLES - DEVICE Fin al Result Performing Organization Address City/[facility]/ZIP Co de Phone Number [facility] [address] [place] [address], [place] [phone] * (ABNORMAL) POCT glucose (10/12/2022 11:32 AM CDT) GLUCOSE POC 120(H) 70 - 99 mg/dL 10/12/2022 11:46 AM CDT [facility] 10/12/2022 11:3 2 AM CDT Holli Murray MD POCT ORDERABLES - DEVICE Fin al Result [facility] [address] [place] [address], [place] [phone] * (ABNORMAL) POCT glucose (10/12/2022 5:49 AM CDT) GLUCOSE POC 215(H) 70 - 99 mg/dL 10/12/2022 5:51 AM CDT [facility] 10/12/2022 5:49 AM CDT Holli Murray MD POCT ORDERABLES - DEVICE Fin al Result Performing Organization Address City/[facility] Co de Phone Number [facility] [address] [place] [address], [place] [phone] * (ABNORMAL) COMPREHENSIVE METABOLIC PANEL (10/12/2022 4:50 AM CDT) GLUCOSE 119(H) 70 - 99 MG/DL 10/12/2022 5:28 AM CDT [facility] BUN 17 7 - 18 MG/DL 10/12/2022 5:28 AM CDT [facility] CREATININE S/P/B 1.03(H) 0.55 - 1.02 MG/DL 10/12/2022 5:28 AM CDT [facility] SODIUM S/P/B 139 136 - 145 MMOL/L 10/12/2022 5:28 AM CDT [facility] POTASSIUM S/P/B 3.6 3.5 - 5.1 MMOL/L 10/12/2022 5:28 AM CDT [facility] CHLORIDE S/P/B 107 100 - 108 MMOL/L 10/12/2022 5:28 AM CDT [facility] CO2 25.6 21 - 32 MMOL/L 10/12/2022 5:28 AM CDT [facility] CALCIUM S/P/B 9.1 8.5 - 10.1 MG/DL 10/12/2022 5:28 AM CDT [facility] BILIRUBIN TOTAL S/P/B 0.8 0.2 - 1.2 MG/DL 10/12/2022 5:28 AM CDT [facility] Comment: THIS ASSAY IS NOT RECOMMENDED FOR PATIENTS UNDERGOING TREATMENT WITH ELTROMBOPAG DUE TO THE POTENTIAL FOR FALSELY ELEVATED RESULTS. TOTAL PROTEIN S/P/B 8.3(H) 6.4 - 8.2 G/DL 10/12/2022 5:28 AM T [facility] ALBUMIN S/P/B 3.3(L) 3.4 - 5.0 G/DL 10/12/2022 5:28 AM CDT [facility] AST 18 15 - 37 U/L 10/12/2022 5:28 AM T [facility] ALT 23 14 - 55 U/L 10/12/2022 5:28 AM CDT [facility] ALKALINE PHOSPHATASE S/P/B 123 50 - 136 U/L 10/12/2022 5:28 AM T [facility] ANION GAP 6.4 5 - 15 MMOL/L 10/12/2022 5:28 AM T [facility] BUN CREATININE RATIO 16.5 6 - 26 10/12/2022 5:28 AM T [facility] A/G RATIO 0.7(L) 1.0 - 2.0 RATIO 10/12/2022 5:28 AM CDT [facility] GFR ESTIMATE 66(L) >90 ML/MIN/1.7 3 M2 10/12/2022 5:28 AM CDT [facility] Comment: NOTE: eGFR is not calculated for patients <18 years of age. This is an estimated GFR calculation using the new CKD EPI creatinine equation without race and so does not require a correction factor for race. This estimated GFR should not be used for calculating drug doses. 10/12/2022 4:50 AM CDT us June Leonard NP LABORATORY Final Result [facility] [address] [place] [address], [place] [phone] * (ABNORMAL) CBC W/DIFF AUTOMATED (10/12/2022 4:50 AM CDT) WBC 12.5(H) 4.5 - 11.0 x10'3/uL 10/12/2022 5:05 AM CDT [facility] RBC 3.94(L) 4.20 - 5.40 x10'6/uL 10/12/2022 5:05 AM CDT [facility] HGB 11.8(L) 12.0 - 16.0 G/DL 10/12/2022 5:05 AM CDT [facility] HCT 35.3(L) 38.0 - 48.0 % 10/12/2022 5:05 AM CDT [facility] MCV 89.6 81.0 - 99.0 FL 10/12/2022 5:05 AM CDT [facility] MCH 29.9 27.0 - 31.0 PG 10/12/2022 5:05 AM CDT [facility] MCHC 33.4 32.0 - 36.0 G/DL 10/12/2022 5:05 AM CDT [facility] RDW 13.2 11.5 - 14.5 % 10/12/2022 5:05 AM CDT [facility] PLT 286 130 - 400 x10'3/uL 10/12/2022 5:05 AM CDT [facility] MPV 11.4 9.3 - 12.2 FL 10/12/2022 5:05 AM CDT [facility] DIFFERENTIAL TYPE AUTOMATED DIFFERENTIAL 10/12/2022 5:05 AM CDT [facility] NEUTROPHILS % 65.1 % 10/12/2022 5:05 AM CDT [facility] LYMPHOCYTES % 29.1 % 10/12/2022 5:05 AM CDT [facility] MONOCYTES % 4.6 % 10/12/2022 5:05 AM CDT [facility] EOSINOPHILS 0.7 % 10/12/2022 5:05 AM CDT [facility] BASOPHILS 0.3 % 10/12/2022 5:05 AM CDT [facility] IMMATURE GRANS % 0.2 % 10/13/19 5:05 AM CDT [facility] ABS. NEUTROPHILS TOTAL 8.15(H) 1.80 - 7.70 x10'3/uL 10/12/2022 5:05 AM CDT [facility] ABS. LYMPHOCYTES 3.65 1.00 - 4.80 x10'3/uL 10/12/2022 5:05 AM CDT [facility] ABS. MONOCYTES 0.58 0.24 - 0.86 x10'3/uL 10/12/2022 5:05 AM CDT [facility] ABS. EOSINOPHILS 0.09 0.04 - 0.36 x10'3/uL 10/12/2022 5:05 AM CDT [facility] ABS. BASOPHILS 0.04 0.01 - 0.08 x10'3/uL 10/12/2022 5:05 AM CDT [facility] ABS. IMMATURE GRANULOCYTES 0.03 0.00 - 0.49 x10'3/uL 10/12/2022 5:05 AM CDT [facility] 10/12/2022 4:50 AM CDT June Leonard X RAY TECH LABORATORY Final Result [facility] [address] [place] [address], * CULTURE, BACTERIA, BLOOD (10/12/2022 1:04 AM CDT) Pathologist [facility] SPEC DESCRIPTION BLOOD 10/11/2022 9:43 PM CDT [facility] SPECIAL REQUESTS NO SPECIAL REQUEST 10/11/2022 9:43 PM CDT [facility] CULTURE RESULT NO GROWTH 5 DAYS 10/31/2022 8:43 AM CDT [facility] BLOOD SPECIMEN OBTAINED FOR BLOOD CULTURE / Unknown 10/12/2022 1:04 AM CDT 10/12/2022 1:11 AM CDT Lisseth Langston FARMWORKER [employer]UIT MICROBIOLOGY - GENERAL ORDE RABLES Final Result [facility] [address] [place] [address], [place] [phone] * (ABNORMAL) POCT glucose (10/11/2022 10:43 PM CDT) Pathologist [facility] GLUCOSE POC 138(H) 70 - 99 mg/dL 10/11/2022 10:52 PM CDT [facility] 10/11/2022 10:4 3 PM CDT Janelle Pimentel DO POCT ORDERABLES - DEVICE Fin al Result [facility] [address] [place] [address], * XR CHEST PORTABLE (10/11/2022 10:15 PM [...] John Campos, 10/11/2022 10:19 PM Lisseth Langston FARMWORK[employer] GENERAL IMAGING Final Resul t * (ABNORMAL) C-REACTIVE PROTEIN (10/11/2022 9:43 PM CDT) C-REACTIVE PROTEIN 2.22(H) <0.29 mg/dL 10/11/2022 10:11 PM CDT [facility] 10/11/2022 9:43 PM CDT us Lisseth Langston [employer]ARMWORK[employer] LABORATORY Final Resul t [facility] [address] [place] [address], [place] [phone] * CT ABD+PEL W IV CON ONLY [...] CLINICAL HISTORY: Abdominal pain, vomiting COMPARISON: 09/24/2022, DATE/TIME: 10/11/2022 6:37 PM TECHNIQUE: Multiplanar CT [...] 52(H) <30 MM/HR 10/11/2022 10:06 PM CDT [facility] Comment:Testing performed on [employer] iSED. 10/11/2022 6:26 PM CDT Lisseth Langston [employer]ARMWORK[employer] LABORATORY Final Resul t [facility] [address] [place] [address], * (ABNORMAL) CBC W/DIFF AUTOMATED (10/11/2022 6:00 PM CDT) WBC 14.7(H) 4.5 - 11.0 x10'3/uL 10/11/2022 6:18 PM CDT [facility] RBC 4.09(L) 4.20 - 5.40 x10'6/uL 10/11/2022 6:18 PM CDT [facility] HGB 12.3 12.0 - 16.0 G/DL 10/11/2022 6:18 PM CDT [facility] HCT 36.5(L) 38.0 - 48.0 % 10/11/2022 6:18 PM CDT [facility] MCV 89.2 81.0 - 99.0 FL 10/11/2022 6:18 PM CDT [facility] MCH 30.1 27.0 - 31.0 PG 10/11/2022 6:18 PM CDT [facility] MCHC 33.7 32.0 - 36.0 G/DL 10/11/2022 6:18 PM CDT [facility] RDW 13.1 11.5 - 14.5 % 10/11/2022 6:18 PM CDT [facility] PLT 300 130 - 400 x10'3/uL 10/11/2022 6:18 PM CDT [facility] MPV 11.4 9.3 - 12.2 FL 10/11/2022 6:18 PM CDT [facility] DIFFERENTIAL TYPE AUTOMATED DIFFERENTIAL 10/11/2022 6:18 PM CDT [facility] NEUTROPHILS % 82.2 % 10/11/2022 6:18 PM CDT [facility] LYMPHOCYTES % 13.0 % 10/11/2022 6:18 PM CDT [facility] MONOCYTES % 3.9 % 10/11/2022 6:18 PM CDT [facility] EOSINOPHILS 0.3 % 10/11/2022 6:18 PM CDT [facility] BASOPHILS 0.2 % 10/11/2022 6:18 PM CDT [facility] IMMATURE GRANS % 0.4 % 10/12/19 6:18 PM CDT [facility] ABS. NEUTROPHILS TOTAL 12.09(H) 1.80 - 7.70 x10'3/uL 10/11/2022 6:18 PM CDT [facility] ABS. LYMPHOCYTES 1.91 1.00 - 4.80 x10'3/uL 10/11/2022 6:18 PM CDT [facility] ABS. MONOCYTES 0.57 0.24 - 0.86 x10'3/uL 10/11/2022 6:18 PM CDT [facility] ABS. EOSINOPHILS 0.05 0.04 - 0.36 x10'3/uL 10/11/2022 6:18 PM CDT [facility] ABS. BASOPHILS 0.03 0.01 - 0.08 x10'3/uL 10/11/2022 6:18 PM CDT [facility] ABS. IMMATURE GRANULOCYTES 0.06 0.00 - 0.49 x10'3/uL 10/11/2022 6:18 PM CDT [facility] 10/11/2022 6:00 PM CDT Carroll MARIE LABORATORY Final Resul t Performing Organization Address City/[facility]/ZIP Co de Phone Number [facility] [address] [place] [address], * TROPONIN, QUANT (10/11/2022 5:40 PM CDT) TROPONIN I HIGH SENSITIVITY 6 <54 ng/L 10/11/2022 6:28 PM CDT [facility] Comment: HIGH DOSES OF BIOTIN, TROPONIN-SPECIFIC AUTOANTIBODIES, AND ANTIBODY THERAPY CONTAINING HAMA MAY INTERFERE WITH THIS TEST RESULT. CORRELATION TO CLINICAL HISTORY AND PRESENTATION RECOMMENDED. 10/11/2022 5:40 PM CDT Tre MARIE LABORATORY Final Resu lt Performing Organization Address City/[facility]/ZIP Co de Phone Number [facility] [address] [place] [address], [place] [phone] * LIPASE (10/11/2022 5:40 PM CDT) LIPASE 34 13 - 75 UNITS/L 10/11/2022 6:28 PM CDT [facility] 10/11/2022 5:40 PM CDT Tre MARIE LABORATORY Final Resu lt [facility] [address] [place] [address], [place] [phone] * (ABNORMAL) COMPREHENSIVE METABOLIC PANEL (10/11/2022 5:40 PM CDT) Pathologist [facility] GLUCOSE 161(H) 70 - 99 MG/DL 10/11/2022 6:28 PM CDT [facility] BUN 20(H) 7 - 18 MG/DL 10/11/2022 6:28 PM CDT [facility] CREATININE S/P/B 1.04(H) 0.55 - 1.02 MG/DL 10/11/2022 6:28 PM CDT [facility] SODIUM S/P/B 139 136 - 145 MMOL/L 10/11/2022 6:28 PM CDT [facility] POTASSIUM S/P/B 4.2 3.5 - 5.1 MMOL/L 10/11/2022 6:28 PM CDT [facility] Comment:SLIGHT HEMOLYSIS, RE SULT MAY BE AFFECTED. CHLORIDE S/P/B 105 100 - 108 MMOL/L 10/11/2022 6:28 PM CDT [facility] CO2 25.4 21 - 32 MMOL/L 10/11/2022 6:28 PM CDT [facility] CALCIUM S/P/B 9.9 8.5 - 10.1 MG/DL 10/11/2022 6:28 PM CDT [facility] BILIRUBIN TOTAL S/P/B 0.7 0.2 - 1.2 MG/DL 10/11/2022 6:28 PM CDT [facility] Comment: THIS ASSAY IS NOT RECOMMENDED FOR PATIENTS UNDERGOING TREATMENT WITH ELTROMBOPAG DUE TO THE POTENTIAL FOR FALSELY ELEVATED RESULTS. TOTAL PROTEIN S/P/B 9.4(H) 6.4 - 8.2 G/DL 10/11/2022 6:28 PM CDT [facility] ALBUMIN S/P/B 3.7 3.4 - 5.0 G/DL 10/11/2022 6:28 PM CDT [facility] AST 28 15 - 37 U/L 10/11/2022 6:28 PM CDT [facility] Comment:SLIGHT HEMOLYSIS, RE SULT MAY BE AFFECTED. ALT 28 14 - 55 U/L 10/11/2022 6:28 PM CDT [facility] ALKALINE PHOSPHATASE S/P/B 145(H) 50 - 136 U/L 10/11/2022 6:28 PM CDT [facility] ANION GAP 8.6 5 - 15 MMOL/L 10/11/2022 6:28 PM CDT [facility] BUN CREATININE RATIO 19.2 6 - 26 10/11/2022 6:28 PM T [facility] A/G RATIO 0.6(L) 1.0 - 2.0 RATIO 10/11/2022 6:28 PM T [facility] GFR ESTIMATE 65(L) >90 ML/MIN/1.7 3 M2 10/11/2022 6:28 PM CDT [facility] Comment: NOTE: eGFR is not calculated for patients <18 years of age. This is an estimated GFR calculation using the new CKD EPI creatinine equation without race and so does not require a correction factor for race. This estimated GFR should not be used for calculating drug doses. 10/11/2022 5:40 PM CDT Tre MARIE LABORATORY Final Resu lt [facility] [address] [place] [address], * CULTURE URINE (10/11/2022 4:08 PM CDT) SPEC DESCRIPTION URINE CLEAN CATCH 10/11/2022 4:42 PM CDT [facility] SPECIAL REQUESTS NO SPECIAL REQUEST 10/11/2022 4:42 PM CDT [facility] CULTURE RESULT POLYMICROBIAL GROWTH CONSISTENT WITH NORMAL GENITAL AIDEN. ?? SUSCEPTIBILITIES NOT ROUTINELY PERFORMED. 10/13/2022 8:26 AM CDT [facility] URINE SPECIMEN OBTAINED BY CLEAN CATCH PROCEDURE / Unknown 10/11/2022 4:08 PM CDT 10/11/2022 4:41 PM CDT Tre MARIE MICROBIOLOGY - GENERAL ORD ERABLES Final Result [facility] [address] [place] [address], * (ABNORMAL) URINALYSIS (10/11/2022 4:08 PM CDT) SPECIMEN TYPE URINE CLEAN CATCH 10/11/2022 4:09 PM CDT [facility] COLOR (U) LIGHT YELLOW 10/11/2022 4:32 PM CDT [facility] TRANSPARENCY CLEAR 10/11/2022 4:32 PM CDT [facility] SPECIFIC GRAVITY (U) 1.013 1.001 - 1.030 10/11/2022 4:32 PM CDT [facility] U PH 5.5 5.0 - 9.0 10/11/2022 4:32 PM CDT [facility] LEUKOCYTES (U) NEGATIVE NEGATIVE 10/11/2022 4:32 PM CDT [facility] NITRITES NEGATIVE NEGATIVE 10/11/2022 4:32 PM CDT [facility] PROTEIN RANDOM (U) 200(H) <30 MG/DL 10/11/2022 4:32 PM CDT [facility] GLUCOSE (U) 30(A) NORMAL MG/DL 10/11/2022 4:32 PM CDT [facility] KETONES MG/DL (U) NEGATIVE NEGATIVE MG/DL 10/11/2022 4:32 PM CDT [facility] UROBILINOGEN NORMAL NORMAL MG/DL 10/11/2022 4:32 PM CDT [facility] BILIRUBIN (U) NEGATIVE NEGATIVE MG/DL 10/11/2022 4:32 PM CDT [facility] BLOOD (U) NEGATIVE NEGATIVE 10/11/2022 4:32 PM CDT [facility] CULTURE & SENSITIVITY INDICATED? SPECIMEN SETUP FOR CULTURE 10/11/2022 4:32 PM CDT [facility] MUCUS RARE /LPF 10/11/2022 4:32 PM CDT [facility] WBC/HPF 8(H) <6 /HPF 10/11/2022 4:32 PM CDT [facility] RBC/HPF 2 <6 /HPF 10/11/2022 4:32 PM CDT [facility] BACTERIA (U) FEW(A) NONE /HPF 10/11/2022 4:32 PM CDT [facility] SQUAMOUS EPITHELIALS FEW /HPF 10/11/2022 4:32 PM CDT [facility] URINE SPECIMEN OBTAINED BY CLEAN CATCH PROCEDURE / Unknown 10/11/2022 4:08 PM CDT [place] URINE ORDERABLES Final Res ult Performing Organization Address [facility]/State/ZIP Co de Phone Number [facility] [address] [place] [address], * ECG 12 lead (10/11/2022 3:39 PM CDT) 10/11/2022 3:39 PM CDT Narrative [facility] - 10/11/2022 11:28 PM CDT [facility] [address] [facility] [place] ? Test Date: ?2022-10-11 Pat Name: ? LENA YOUNGBLOOD ?Department: ?? 41 ? Room: ? A329 Gender: ? Female ? Core Checker: ?? [id number] : ?1970 ? Requested By: TRE JOHN Order Number: [id number] ? Reading : ?? Leonel Marrero ? Measurements Intervals ?[place] ? Rate: ? 98 ? P: ?46 VA: ? 167 ?QRS: ?17 QRSD: ? 77 ? T: ?23 QT: ? 329 ? QTc: ?422 ? Interpretive Statements SINUS RHYTHM WITH OCCASIONAL VENTRICULAR PREMATURE COMPLEXES NONSPECIFIC T-WAVE ABNORMALITY Compared to ECG 09/29/2022 20:57:16 No significant changes Preliminary EKG interpretation by ED Physician Procedure Note Leonel Marrero MD - 10/11[facility]22 [facility] [address] [facility] Test Date: 2022-10-11 Pat Name: LENA YOUNGBLOOD Department: 41 Room: A329 Gender: Female Core Checker: [id number] : 1970 Requested By: TRE JOHN Order Number: [id number] Reading MD: Leonel Marrero Measurements Intervals [place] Rate: 98 P: 46 VA: 167 QRS: 17 QRSD: 77 T: 23 QT: 329 QTc: 422 Interpretive Statements SINUS RHYTHM WITH OCCASIONAL VENTRICULAR PREMATURE COMPLEXES NONSPECIFIC T-WAVE ABNORMALITY Compared to ECG 09/29/2022 20:57:16 No significant changes Preliminary EKG interpretation by ED Physician Tre MARIE ECG ORDERABLES Final Resu lt [facility] documented in this encounter Visit Diagnoses Not on filedocumented in this encounter Admitting Diagnoses Diagnosis Intractable abdominal pain Abdominal pain, unspecified site Abdominal pain Abdominal pain, unspecified site documented in this encounter Active and Recently Administered Medications Additional Health Concerns Assessment Noted Time PHQ-9 Depression Total Score: 0 03/08/19 9:30 AM TIMBER SETTER documented as of this encounter Care Teams Belt Notcher Relationship Specialty Start Date End Date Abiodun Segura II, MD [address] [place] [address] PCP - General FAMILY PRACTICE 03/09/21 [place] [address] [place] [address] PODIATRY/SURGERY 05/05/22 documented as of this encounter
--- OUTSIDE RECORDS SUMMARY | 2024-03-02 22:24 | XMS_ITS | Encounter Summary ---
Author Organization [facility] Address [address] [place] [address]. [place] [address] [place] [address] Care Team Providers Care Detective Investigator Name Role Phone Colton SILVEIRA MD, Abiodun Rushing Primary Care Provider Victoriano Langston MD Unavailable [phone] Encounter Details Date Type Department Care Team (Latest Contact Info) Description 09/29/2022 Travel Social History Tobacco Use Types Packs/Day [...] Patient Health Questionnaire-2 Score 0 05/05/2022 [facility] [...] slept in a alf (including now)? No 09/03/2022 Comments No Sex [...] st Contact Info) Description 03/14/2024 11:45 AM ENGINEER AUTOMATED EQUIPMENT Office Visit [facility] [phone] Marvin Mckeon MD [address] [facility] [address] [place] [address] 03/20/2024 11:30 AM ENGINEER AUTOMATED EQUIPMENT Office Visit [facility] Family Medicine - [place] [address] [place] [phone] Abiodun Segura II, MD [address] [place] [address] documented as of this encounter Goals Goal Patient Goal Type Associated Problems Recent Progress Patient-Stated? Author Family - family caregiver with be involved in care transitions and discharge planning Lifestyle No Natty Cheek, RN documented as of this encounter Visit Diagnoses Not on filedocumented in this encounter Additional Health Concerns Assessment Noted Time PHQ-9 Depression Total Score: 0 03/08/19 22 9:30 AM ENGINEER AUTOMATED EQUIPMENT documented as of this encounter Care Teams Detective Investigator Relationship Specialty Start Date End Date Abiodun Segura II, MD [address] [place] [address] PCP - General FAMILY PRACTICE 03/09/21 [place] [address] [place] [address] PODIATRY/SURGERY 05/05/22 documented as of this encounter
--- OUTSIDE RECORDS SUMMARY | 2024-03-02 22:24 | XMS_ITS | Encounter Summary ---
Author Organization [facility] Address [address] [place] [address]. [place], [place] [address] [place] [address] Care Team Providers Care Lactation Coordinator Name Role Phone Colton SILVEIRA MD, Abiodun Rushing Primary Care Provider Victoriano Langston MD Unavailable [phone] Encounter Details Date Type Department Care Team (Latest Contact Info) Description 10/15/2022 Scan HEALTH INFO SRVCS Scanned, Doc Med Group Social History Tobacco Use Types Packs/Day Years Used Date Smoking Tobacco: Never Smokeless Tobacco: Never Alcohol Use Standard Drinks/Week Comments Yes 0 (1 standard drink = 0.6 oz pur e alcohol) few times per year [facility] Utilities Answer Date Recorded In the past 12 months has [facility] [employer], gas, oil, or water [employer] threatened to shut off services in your [...] Health Questionnaire-2 Score 1 03/05/2023 [facility] - Occupational Stress [...] or making decisions? No 03/06/2023 3:39 PM HARBOR TUG CAPTAIN Teresa Amaya RN Active * Because of a physical, mental, or emotional condition, do you have serious difficulty concentrating, remembering, or making decisions? Answer Entry Date Author Status No 10/11/2022 11:33 PM CDT Amanda Qureshi RN Active documented in this encounter Plan of Treatment Upcoming Encounters Date Type Department Care Team (Late st Contact Info) Description 03/14/2024 11:45 AM HARBOR TUG CAPTAIN Office Visit [facility]-[address] [phone] Marvin Mckeon MD [address] [facility] [address] [place] [phone] 03/20/2024 11:30 AM HARBOR TUG CAPTAIN Office Visit [facility] Family Medicine - [place] [address] [place] [phone] Abiodun Segura II, MD [address] [place], [place] [phone] documented as of this encounter Goals Goal Patient Goal Type Associated Problems Recent Progress Patient-Stated? Author Family - family caregiver with be involved in care transitions and discharge planning Lifestyle No Natty Cheek RN documented as of this encounter Visit Diagnoses Not on filedocumented in this encounter Additional Health Concerns Assessment Noted Time PHQ-9 Depression Total Score: 0 03/08/19 9:30 AM HARBOR TUG CAPTAIN documented as of this encounter Care Teams Lactation Coordinator Relationship Specialty Start Date End Date Abiodun Segura II, MD [address] [place] [address] PCP - General FAMILY PRACTICE 03/09/21 [place] [address] [place] [address] PODIATRY/SURGERY 05/05/22 documented as of this encounter
--- OUTSIDE RECORDS SUMMARY | 2024-03-02 22:24 | XMS_ITS | Encounter Summary ---
Author Organization [facility] Address [address] [place] [address]. [place], [place] [id number] [address] Care Team Providers Care Laser Machine Operator Name Role Phone Colton SILVEIRA MD, Abiodun Rushing Primary Care Provider Victoriano Langston MD Unavailable [phone] Reason for Visit * Reason Comments Pathology (SCAN) EGD (SCAN) Encounter Details Date Type Department Care Team (Late st Contact Info) Description 10/16/2022 Scan HEALTH INFO [facility] Scanned, [facility] Pathology (SCAN); EGD (SCAN) Social History Tobacco Use Types Packs/Day Years Used Date Smoking Tobacco: Never Smokeless Tobacco: Never Alcohol Use Standard Drinks/Week Comments Yes 0 (1 standard drink = 0.6 oz pur e alcohol) few times per year [facility] Utilities Answer Date Recorded In the past 12 months has Eve, oil, or water [employer] threatened to shut off services in your [...] Recorded Patient Health Questionnaire-2 Score 1 03/05/2023 [facility] [...] Assessment Author Status No 10/11/2022 11:33 PM EMILEET Amanda Qureshi RN Active * Are you [...] Author Status Yes 10/11/2022 11:38 PM CDT Qureshi, Amanda A , RN Active documented as of this encounter Mental Status * Question Answer Entry Date Author Status Because of a physical, mental, or emotional condition, do you have serious difficulty concentrating, remembering, or making decisions? No 03/06/2023 3:39 PM REFUELING RAMP SUPERVISOR Teresa Amaya RN Active * Because of a physical, mental, or emotional condition, do you have serious difficulty concentrating, remembering, or making decisions? Answer Entry Date Author Status No 10/11/2022 11:33 PM CDT Amanda Qureshi RN Active documented in this encounter Plan of Treatment Upcoming Encounters Date Type Department Care Team (Late st Contact Info) Description 03/14/2024 11:45 AM REFUELING RAMP SUPERVISOR Office Visit [facility] [phone] Marvin Mckeon MD [facility] [address] [place], [place] [phone] 03/20/2024 11:30 AM REFUELING RAMP SUPERVISOR Office Visit [facility] Family Medicine - [place] [address] [place] [phone] Abiodun Segura II, MD [address] [place] [address] documented as of this encounter Goals Goal Patient Goal Type Associated Problems Recent Progress Patient-Stated? Author Family - family caregiver with be involved in care transitions and discharge planning Lifestyle No Natty Cheek RN documented as of this encounter Procedures Procedure Name Priority Date/Time Associated Diagnosis Comments EGD GENERIC (SCAN ORDER) 10/16/2022 PATHOLOGY GENERIC (SCAN ORDER) 10/16/2022 documented in this encounter Results * EGD GENERIC (10/16/2022) 10/16/2022 [facility] Scanned SCANNING Final Resu lt * PATHOLOGY GENERIC (10/16/2022) 10/16/2022 [facility] Scanned SCANNING Final Resu lt documented in this encounter Visit Diagnoses Not on filedocumented in this encounter Additional Health Concerns Assessment Noted Time PHQ-9 Depression Total Score: 0 03/08/19 22 9:30 AM REFUELING RAMP SUPERVISOR documented as of this encounter Care Teams Laser Machine Operator Relationship Specialty Start Date End Date Abiodun Segura II, MD [address] [place] [address] PCP - General FAMILY PRACTICE 03/09/21 [place] [address] [place] [address] PODIATRY/SURGERY 05/05/22 documented as of this encounter
--- OUTSIDE RECORDS SUMMARY | 2024-03-02 22:25 | XMS_ITS | Encounter Summary ---
Author Organization [facility] Address [address] [place] [address]. [place] [address] [place] [address] Care Team Providers Care Mica Layer Name Role Phone Colton SILVEIRA MD, Abiodun Rushing Primary Care Provider Encounter Details Date Type Department Care Team (Late st Contact Info) Description 04/21/2022 Orders Only [facility] Family Medicine - [place] [address] [place] [address] Abiodun Segura II, MD [address] [place] [address] Social History Tobacco Use Types Packs/Day Years Used Date Smoking Tobacco: Never Smokeless Tobacco: Never Alcohol Use Standard Drinks/Week Comments Yes 0 (1 standard drink = 0.6 oz pur e alcohol) Rarely PHQ-2 Answer Date Recorded Patient Health Questionnaire-2 Score 0 03/15/2022 Comments No Sex and Gender Information Value Date Recorded Sex Assigned at Female 12/17/2021 2:07 AM CDT Legal Sex Female 2:58 PM CDT Gender Identity Female 12/17/2021 2:07 AM CDT Sexual Orientation Straight 12/17/2021 2: 07 AM CDT COVID-19 Exposure Response Date Recorded In the last 10 days, have yo u been in contact with someone who was confirmed or suspected to have Coronavirus/COVID-19? No / Unsure 04/04/2022 11:24 AM DYNO TECHNICIAN documented as of this encounter Functional Status * RETIRED Are you deaf or do you have serious difficulty hearing Answer Date of Assessment Author Status No 12/17/2021 2:10 AM CDT Activ e * RETIRED Are you blind or do you have serious difficulty seeing, even when wearing glasses? Answer Date of Assessment Author Status Yes 12/17/2021 2:10 AM CDT Activ e * Do you have serious difficulty walking or climbing stairs? Answer Date of Assessment Author Status Yes 12/17/2021 2:10 AM CDT Amanda Qureshi RN Active * Do you have difficulty dressing or bathing? Answer Date of Assessment Author Status No 12/17/2021 2:10 AM CDT Amanda Qureshi RN Active * Because of a physical, mental, or emotional condition, do you have difficulty doing errands alone such as visiting a doctor's office or shopping? Answer Date of Assessment Author Status No 12/17/2021 2:10 AM CDT Amanda Qureshi RN Active documented as of this encounter Mental Status * Because of a physical, mental, or emotional condition, do you have serious difficulty concentrating, remembering, or making decisions? Answer Entry Date Author Status No 12/17/2021 2:10 AM EMILEET Amanda Qureshi RN Active documented in this encounter Plan of Treatment Upcoming Encounters Date Type Department Care Team (Late st Contact Info) Description 03/14/2024 11:45 AM DYNO TECHNICIAN Office Visit [facility] [phone] Marvin Mckeon MD [facility] [address] [place] [address] 03/20/2024 11:30 AM DYNO TECHNICIAN Office Visit [facility] Family Medicine - [place] [address] [place] [phone] Abiodun Segura II, MD [address] [place] [phone] documented as of this encounter Visit Diagnoses Diagnosis Type 2 diabetes mellitus with diabetic neuropathic arthropathy, with long-term current use of insulin ([facility])- Primary documented in this encounter Additional Health Concerns Assessment Noted Time PHQ-9 Depression Total Score: 0 03/08/19 9:30 AM DYNO TECHNICIAN documented as of this encounter Care Teams Mica Layer Relationship Specialty Start Date End Date Abiodun Segura II, MD [address] [place] [address] PCP - General FAMILY PRACTICE 03/09/21 documented as of this encounter
--- OUTSIDE RECORDS SUMMARY | 2024-03-02 22:25 | XMS_ITS | Encounter Summary ---
Author Organization [facility] Address [address] [place] [address]. [place] [address] [place] [address] Care Team Providers Care Wind Turbine Installer Name Role Phone Colton SILVEIRA MD, Abiodun Rushing Primary Care Provider Encounter Details Date Type Department Care Team (Late st Contact Info) Description 02/15/2022 1:18 PM SERVICE WORKER - 02/15/2022 11:59 PM [facility] Hospital Encounter [facility] [address] [place] [id number] Abiodun Segura II, MD [address] [place] [address] Discharge Disposition: Home or Self Care (Routine Discharge) Social History Tobacco Use Types Packs/Day Years Used Date Smoking Tobacco: Never Smokeless Tobacco: Never Alcohol Use Standard Drinks/Week Comments Yes 0 (1 standard drink = 0.6 oz pur e alcohol) Rarely PHQ-2 Answer Date Recorded PHQ-2 Score - If the patient scores above 3, please move on to questions 3-9 0 06/08/2021 Comments No Sex and Gender Information Value Date Recorded Sex Assigned at Female 12/17/2021 2:07 AM CDT Legal Sex Female 2:58 PM CDT Gender Identity Female 12/17/2021 2:07 AM CDT Sexual Orientation Straight 12/17/2021 2: 07 AM CDT COVID-19 Exposure Response Date Recorded In the last 10 days, have joseph molina been in contact with someone who was confirmed or suspected to have Coronavirus/COVID-19? No / Unsure 02/15/2022 1:18 PM SERVICE WORKER documented as of this encounter Functional Status [...] Assessment Author Status No 12/17/2021 2:10 AM Amanda Ballesteros RN Active * Because of [...] Date Author Status No 12/17/2021 2:10 AM Amanda Ballesteros RN Active documented in this encounter Medications at Time of Discharge acidophilus (FLORAJEN) capsule Take 1 capsule by mouth 2 (two) times daily. 60 capsule 12/26/2021 09/04/19 23 amLODIPine 10 MG tabletIndications:H ypertension, unspecified type [The details of the medication are not available because there are pending changes by a home health clinician.] 90 tablet 3 09/24/2020 08/08/19 23 ciprofloxacin (CIPRO) 500 MG tabletIndications:C ystitis Take 1 tablet (500 mg total) by mouth 2 (two) times daily for 7 days. 14 tablet 02/15/2022 02/22/19 23 cyclobenzaprine 10 MG tablet Take 1 tablet (10 mg total) by mouth 3 (three) times daily as needed. 15 tablet 08/17/2021 03/15/19 23 Dulaglutide (TRULICITY) 3 MG/0.5ML Solution Pen-injectorIndicat ions:diabetes Inject 3 mg into the skin weekly. Fridays 6 mL 3 01/06/2022 05/23/19 23 Heparin Sodium, Porcine, (HEPARIN SODIUM FLUSH IV)Indications:IV patency 5 mLs by IVP route daily. Indications: IV patency 12/27/2021 05/06/19 23 HYDROcodone-acetami nophen (NORCO) 5-325 MG tabletIndications:A cute Pain < 7 Day Supply Take 1 tablet by mouth every 6 (six) hours as needed. Indications: Acute Pain < 7 Day Supply 28 tablet 12/26/2021 09/10/19 23 hydrocortisone (HYTONE) 2.5 % ointmentIndications :Skin Rash Apply 1 Application topically daily as needed. Indications: Rash Apply to face 10/28/2021 10/12/19 23 hydrOXYzine (ATARAX) 25 MG tabletIndications:B urning Sensation and Itching (Inactive) Take 1-2 tablets (25-50 mg total) by mouth nightly at bedtime. Indications: Burning Feeling and Itching 10/28/2021 10/12/19 23 insulin lispro protamine-insulin lispro (HUMALOG MIX 75/25) (75-25) 100 UNIT/ML SuspensionIndicatio ns:diabetes Inject 55 Units into the skin every evening. Indications: diabetes 05/06/19 23 insulin lispro protamine-insulin lispro (HUMALOG MIX 75/25) (75-25) 100 UNIT/ML SuspensionIndicatio ns:diabetes Inject 65 Units into the skin every morning. Indications: diabetes 05/06/19 23 linaCLOtide 145 MCG capsuleIndications: Chronic idiopathic constipation [The details of the medication are not available because there are pending changes by a home health clinician.] 30 capsule 5 04/20/2021 03/15/19 23 lisinopril (PRINIVIL) 40 MG tabletIndications:h ypertension Take 1 tablet by mouth once daily 90 tablet 3 01/06/2022 09/10/19 23 omeprazole 40 MG capsuleIndications: Esophagitis due to doxycycline Take 1 capsule (40 mg total) by mouth in the morning. 30 capsule 1 07/14/2021 10/12/19 ondansetron 4 MG disintegrating tabletIndications:N ausea Take 1 tablet (4 mg total) by mouth every 8 (eight) hours as needed for Nausea. 20 tablet 07/11/2021 10/12/19 simvastatin (ZOCOR) 40 MG tabletIndications:H ypercholesteremia [The details of the medication are not available because there are pending changes by a home health clinician.] 90 tablet 3 10/04/2021 06/15/19 24 Sodium Chloride Flush (SALINE FLUSH IV)Indications:IV patency 10 mLs by IVP route daily. Indications: IV patency 12/27/2021 05/06/19 23 traMADol (ULTRAM) 50 MG tabletIndications:A cute Pain < 3 Day Supply Take 1 tablet (50 mg total) by mouth every 6 (six) hours as needed. Indications: Acute Pain < 3 Day Supply 12 tablet 01/08/2022 09/04/19 documented as of this encounter Progress Notes * Abiodun Segura II, MD - 02/15/2022 1:20 PM CST Patient called with results. CRP improving. Follow up as scheduled in February for in person exam. ICE WORKER documented in this encounter Plan of Treatment Upcoming Encounters Date Type Department Care Team (Late st Contact Info) Description 03/14/2024 11:45 AM SERVICE WORKER Office Visit [facility] [phone] Marvin Mckeon MD [facility] [address] [place], [place] [phone] 03/20/2024 11:30 AM SERVICE WORKER Office Visit [facility] Family Medicine - [place] [address] [place] [phone] Abiodun Segura II, MD [address] [place] [address] documented as of this encounter Procedures Procedure Name Priority Date/Time Associated Diagnosis Comments C-REACTIVE PROTEIN Routine 02/15/2022 1: 24 PM SERVICE WORKER Other chronic osteomyelitis of foot, unspecified laterality (CMS/HCC HHS/HCC) documented in this encounter Results * (ABNORMAL) C-REACTIVE PROTEIN (02/15/2022 1:24 PM SERVICE WORKER) C-REACTIVE PROTEIN 1.84(H) <0.29 mg/dL 02/15/2022 1:56 PM SERVICE WORKER [facility] 02/15/2022 1:24 PM SERVICE WORKER Abiodun Segura II, MD LABORATORY Final R esult [facility] [address] [place] [address], documented in this encounter Visit Diagnoses Diagnosis Other chronic osteomyelitis of foot, unspecified laterality (CMS/HCC HHS/HCC) documented in this encounter Additional Health Concerns Assessment Noted Time PHQ-9 Depression Total Score: 0 03/08/19 22 9:30 AM SERVICE WORKER documented as of this encounter Care Teams Wind Turbine Installer Relationship Specialty Start Date End Date Abiodun Segura II, MD [address] [place] [address] PCP - General FAMILY PRACTICE 03/09/21 documented as of this encounter
--- OUTSIDE RECORDS SUMMARY | 2024-03-02 22:25 | XMS_ITS | Encounter Summary ---
Author Organization [facility] Address [address] [place] [address]. [place] [address] [place] [address] Care Team Providers Care Bellows Charger Assembler Name Role Phone Colton SILVEIRA MD, Yasmin Rushing Primary Care Provider Victoriano Langston MD Unavailable [phone] Reason for Visit * Reason Comments Toe Pain Urinary Symptoms * Auth/Cert (Routine) Specialty Diagnoses / Procedures Referred By Contac t Referred To Contact Diagnoses Soft tissue infection of foot Soft tissue infection of foot Procedures NONE Referral ID Status Reason Start Date Expiration Date Visits Re quested Visits Authorized [id number] 1 1 Encounter Details Date Type Department Care Team (Late st Contact Info) Description 09/06/2022 12:30 PM CDT - 09/06/2022 1:38 PM CDT Surgery [place] [address] Hubert Cummings DPM [address], [place] [address] BONE BIOPSY RIGHT FOOT FIRST AND SECOND TOES Surgery Details Date/Time Status Location OR Service Patient Class Case Class Case Type Trauma Case? 09/06/2022 12:30 PM Posted [facility] OR OR 10 Podiatry Inpatient No Panel 1 Procedure LRB Anes Op Region Wound Class Comments BONE BIOPSY RIGHT FOOT FIRST AND SECOND TOES Right General Foot Dirty Surgeon Surgeon Role Service Panel Hubert Cummings, ABDULLAHIM Primary Podiatry 1 documented in this encounter Social History [...] Recorded Patient Health Questionnaire-2 Score 0 05/05/2022 [facility] of Occupat ional Health - Occupational Stress [...] slept in a residential (including now)? No 09/03/2022 Comments No Sex and Gender Information Value Date Recorded Sex Assigned at Female 12/17/2021 2:07 AM CDT Legal Sex Female 2:58 PM CDT Gender Identity Female 12/17/2021 2:07 AM CDT Sexual Orientation Straight 12/17/2021 2: 07 AM CDT documented as of this encounter Last Filed Vital Signs Vital Sign Reading Time Taken Comments Blood Pressure 130/72 09/06/2022 1:30 PM CDT Pulse 83 09/06/2022 1:30 PM CDT Temperature 36.6 ??C (97.9 ??F) 09/06/2022 1:21 PM CD T Respiratory Rate 12 09/06/2022 1:30 PM CDT Oxygen Saturation 100% 09/06/2022 1:30 PM CDT Inhaled Oxygen Concentration - - Weight 90.4 kg (199 lb 4.7 oz) 09/06/2022 4:47 A M CDT Height 167.6 cm (5' 6 ) 09/03/2022 1:14 PM CDT Body Mass Index 31.63 09/03/2022 1:14 PM CDT documented in this encounter Functional Status * Question Answer Date of Assessment Author Status Do you have serious difficulty walking or climbing stairs? Yes 09/03/2022 9:25 PM CDT Azeem Tom RN Activ e * Question Answer Date of Assessment Author Status Do you have difficulty dressing or bathing? Yes 09/03/2022 9:25 PM Azeem Knox RN A ctive Because of a physical, mental, or emotional condition, do you have difficulty doing errands alone such as visiting a doctor's office or shopping? Yes 09/03/2022 9:25 PM Ricki Knox ma, RN Active * Are you deaf or [...] serious difficulty concentrating, remembering, or making decisions? Yes 09/03/2022 9:25 PM Azeem Knox RN A ctive * Because of a physical, mental, or emotional condition, do you have serious difficulty concentrating, remembering, or making decisions? Answer Entry Date Author Status Yes 09/03/2022 9:25 PM Azeem Knox RN Active documented in this encounter Discharge Instructions * Attachments The following attachments cannot be sent through Care Everywhere. * Diabetic Foot Ulcer Discharge Instructions ([place]) documented in this encounter Medications at Time of Discharge amLODIPine (NORVASC) 10 MG tabletIndications:H ypertension, unspecified type Take 1 tablet by mouth once daily 90 tablet 1 3 06/15/19 24 cyclobenzaprine (FLEXERIL) 10 MG tabletIndications:M uscle spasm Take 1 tablet (10 mg total) by mouth 3 (three) times daily as needed. 90 tablet 5 3 10/12/19 23 dulaglutide (TRULICITY) 3 MG/0.5ML injectionIndication s:diabetes Inject 3 mg into the skin once a week. Indications: diabetes Fridays 6 mL 3 3 09/21/19 23 HUMALOG MIX 75/25 (75-25) 100 UNIT/ML [...] Day Supply 10 tablet 3 10/12/19 23 simvastatin (ZOCOR) 40 MG tabletIndications:H ypercholesteremia [The details of the medication are not available because there are pending changes by a home health clinician.] 90 tablet 3 2 06/15/19 24 documented as of this encounter Progress Notes * Candido Mathews RN - 09/09/2022 11:02 AM CDT Discharge education provided and all questions and concerns have been addressed to the best of my knowledge. CANDIDO MATHEWS RN Problem: Pain Goal: Patient's pain/discomfort is manageable Description: Assess and monitor patient's pain using appropriate pain scale. Collaborate with interdisciplinary team and initiate plan and interventions as ordered. Re-assess patient's pain level 30 - 60 minutes after pain management intervention. Outcome: Adequate for Discharge Problem: Safety Goal: Patient will be injury [...] per policy, and non-skid footwear provided. Outcome: Adequate for Discharge Problem: Daily Care Goal: Daily care needs are met Description: Assess and monitor ability to perform self care and identify potential discharge needs. Outcome: Adequate for Discharge Problem: Psychosocial Needs Goal: Demonstrates ability to cope with hospitalization/illness Description: Assess and monitor patients ability to cope with his/her illness. Outcome: Adequate for Discharge Goal: Collaborate with patient/family/caregiver to identify patient specific goals for this hospitalization Outcome: Adequate for Discharge Problem: Discharge Barriers Goal: Patient's discharge needs are met Description: Collaborate with interdisciplinary team and initiate plans and interventions as needed. Outcome: Adequate for Discharge Problem: Reduced risk for falls/injury Goal: Reduced Risk for Falls/Injury Outcome: Adequate for Discharge Goal: Reduced Risk of Confusion (Acute vs Chronic) Outcome: Adequate for Discharge Goal: Reduced Risk of Symptomatic Depression Outcome: Adequate for Discharge Goal: Reduced Risk of Altered Elimination Outcome: Adequate for Discharge Goal: Reduced Risk of Dizziness/Vertigo/Balance Outcome: Adequate for Discharge Goal: Reduced Risk of Polypharmacy Outcome: Adequate for Discharge Problem: Injury - Risk of, Abnormal Serum Glucose Level Goal: Glucose level within specified parameters Outcome: Adequate for Discharge * Shana Martinez, STANDARDS ENGINEER - 09/09/2022 10:48 AM CDT Spoke with patient about discharge, she will be returning home with her family, no concerns, no discharge needs. 09/09/22 1048 Discharge Planning Living Arrangements Spouse/Significant other;Children;Family Members Support Systems Spouse/Significant other;Children;Family Members Type of Residence Private residence Assistance/Services Needed No IV Infusion at discharge No Patient expects to be discharged to: Home DME Needed at Discharge No * Shana Martinez STANDARDS ENGINEER - 09/09/2022 10:47 AM CDT I delivered the Reinforcement Important Message from Medicare (Subsequent IMM) to Lena Wahl after explaining the form to the patient, the Patient signed the form. The Patient received a copy of the form for their records. 09/09/22 1047 Forms Reinforcement Important Message from Medicare (Subsequent IMM) Signed Copy delivered * Maximo Ramirez RN - 09/09/2022 1:24 AM CDT Problem: Pain Goal: Patient's pain/discomfort is manageable [...] plans and interventions as needed. Outcome: Progressing Problem: Reduced risk for falls/injury Goal: Reduced Risk for Falls/Injury Outcome: Progressing Goal: Reduced Risk of Confusion (Acute vs Chronic) Outcome: Progressing Goal: Reduced Risk of Symptomatic Depression Outcome: Progressing Goal: Reduced Risk of Altered Elimination Outcome: Progressing Goal: Reduced Risk of Dizziness/Vertigo/Balance Outcome: Progressing Goal: Reduced Risk of Polypharmacy Outcome: Progressing Problem: Injury - Risk of, Abnormal Serum Glucose Level Goal: Glucose level within specified parameters Outcome: Progressing * Candido Mathews RN - 09/08/2022 6:39 PM CDT Problem: Pain Goal: Patient's pain/discomfort is manageable [...] plans and interventions as needed. Outcome: Progressing Problem: Reduced risk for falls/injury Goal: Reduced Risk for Falls/Injury Outcome: Progressing Goal: Reduced Risk of Confusion (Acute vs Chronic) Outcome: Progressing Goal: Reduced Risk of Symptomatic Depression Outcome: Progressing Goal: Reduced Risk of Altered Elimination Outcome: Progressing Goal: Reduced Risk of Dizziness/Vertigo/Balance Outcome: Progressing Goal: Reduced Risk of Polypharmacy Outcome: Progressing * Natty Dukes RN - 09/08/2022 1:26 PM CDT 09/08/22 1325 Interdisciplinary Group Conference Team Members Present Physician Physician present for group conference [facility] Barriers to Discharge Barriers Not Medically ready Not Medically ready follow up Podiatry recs and Cx pending, possible ID consult, possible d/c Sunday if PO abx Per IDRs, possible d/c Sunday if Cx result and can do PO abx. If IV abx are needed, then plan for discharge next week. Patient expects to return home with family at time of discharge. * Sofy Carrington MD - 09/08/2022 8:28 AM CDT Interval Assessment and Plan: Patient is a 52-year-old female with PMHx of diabetes hypertension, hyperlipidemia, right diabetic foot ulcer, Charcot foot, neuropathy, and 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 Admitted for pain in toes of R foot, with concern for possible osteomyelitis. Possible osteomyelitis of 1st and 2nd digits of R foot MRI of foot suggests possible mild osteomyelitis in distal phalanges of 1st and 2nd toes. Suspect mild chronic osteomyelitis. No clinical evidence of acute infection. No adjacent soft tissue wounds. Pedal pulses intact. WBC stable from prior, not yet downtrending postoperatively. - Vascular surgery (Dr. Hernandez) previously consulted -> advised no concern for significant arterial insufficiency, no indication for vascular intervention at this time - S/p bone biopsy/culture on 09/06 with podiatry (Dr. Cummings) -> culture no growth thus far - Discussed with podiatry, advised that bone appeared healthy intraoperatively; agree with no indication for antibiotics at this time, particularly given negative culture results thus far - Repeat CBC in AM; follow WBC trend closely -Pain control: Tylenol/Oxycodone 5mg prn/Oxycodone 10mg prn for severe -Daily CBC Left foot pain Charcot foot Chronic left foot pain. MRI negative for acute pathology, including no evidence osteomyelitis. - Recommend outpatient follow-up HEMA, resolved Hyperkalemia, resolved BMP labs now normalized. Unclear if previous lab values were in error vs. Developed mild postoperative HEMA. - Follow daily BMP UTI, resolved - Completed course of Macrobid on 09/07/22 T2DM Last known A1c 8.3 from June 2022. Home meds reportedly include Humalog 60 units in the morning and 55 units in the evening and Trulicity. BG now improved. - Continue Lantus 30U qhs + 10U w/ meals + correctional - Hypoglycemia protocols in place Hypertension - Continue lisinopril 20 and amlodipine 10 GERD - Will trial Pepcid - If no response, will trial PPI Stable Chronic Conditions: HLD- continue statin Anxiety-continue home Atarax scheduled nightly + prn Fluids: PO Diet: Carb controlled VTE Prophylaxis: Lovenox Subjective: NAEO. Patient states pain has lessened, and controlled well with po medications prn. Overall statesfeeling well today - denies questions/concerns at present. Review of Systems: See above. Denies chest pain or SOB Scheduled medications: amLODIPine 10 mg Oral Nightly at bedtime atorvastatin 20 mg Oral Nightly at bedtime enoxaparin 40 mg Subcutaneous Nightly (enoxaparin) famotidine 20 mg Oral 2 times per day hydrOXYzine 25 mg Oral Nightly at bedtime insulin glargine 30 Units Subcutaneous Nightly at bedtime And insulin lispro 10 Units Subcutaneous TID AC insulin lispro 0-18 Units Subcutaneous TID AC And insulin lispro 0-9 Units Subcutaneous Nightly at bedtime lisinopril 20 mg Oral QPM morphine 1 mg Intravenous Once PRN medications: acetaminophen, cyclobenzaprine, dextrose 10 % bolus, diphenhydrAMINE, glucagon, glucose, hydrOXYzine, ondansetron, oxyCODONE immediate release, oxyCODONE immediate release, pantoprazole EC, phenazopyridine, polyethylene glycol Objective: Temp: [96.8 ??F (36 ??C)-97.9 ??F (36.6 ??C)] 96.8 ??F (36 ??C) Pulse: [71-85] 72 Resp: [17-18] 17 BP: (125-147)/(73-79) 126/76 Blood pressure 126/76, pulse 72, temperature 96.8 ??F (36 ??C), resp. rate 17, height 5' 6 (1.676 m), weight 90.4 kg (199 lb 4.7 oz), last menstrual period 10/29/2004, SpO2 100 %. Intake/Output Summary (Last 24 hours) at 09/08/2022 0828 Last data filed at 09/07/2022 1300 Gross per 24 hour Intake 500 ml Output -- Net 500 ml Physical Exam: General: Well developed, Obese. NAD. HEENT: PERRL, no scleral icterus, moist mucus membranes Cardiovascular: Normal S1, S2. Normal rate. Regular rhythm. No murmurs appreciated. Respiratory: No increased work of breathing. CTAB. Abdomen: Soft, non-distended, mild epigastric TTP, no rebound or guarding Extremities: No edema, DP and PT pulses palpable bilaterally R foot with band-aids intact over 1st and 2nd toes Skin: no rashes Psych: normal affect Last 5 Recorded Weights 09/03/22 1314 09/04/22 1944 09/05/22 0427 09/06/227 Weight: 85.6 kg (188 lb 11.4 oz) 91 kg (200 lb 9.9 oz) 90.3 kg (199 lb 1.2 oz) 90.4 kg (199 lb 4.7 oz) 09/07/22 042 Weight: 90.4 kg (199 lb 4.7 oz) Labs: Recent Labs Lab 09/05/22 0956 09/06/22 0454 09/07/22 0440 WBC 10.9 7.6 15.9* RBC 3.73* 3.58* 4.48 HGB 11.3* 10.8* 13.4 HCT 35.5* 32.7* 39.8 MCV 95.2 91.3 88.8 MCH 30.3 30.2 29.9 MCHC 31.8* 33.0 33.7 PLT 285 246 328 RDW 13.1 12.8 12.4 MPV 11.3 11.0 11.4 PERNEU 69.9 45.4 88.4 PERLYM 26.0 47.4 9.5 PERMON 2.4 5.4 1.3 LYMC 2.84 3.59 1.52 MONOC 0.26 0.41 0.21* EOSC 0.09 0.09 0.00* BASOC 0.05 0.04 0.04 DTYPE AUTOMATED DIFFERENTIAL AUTOMATED DIFFERENTIAL AUTOMATED DIFFERENTIAL Recent Labs Lab 09/03/22 1454 09/04/22 0820 09/06/22 0454 09/07/22 0440 09/07/22 1254 NA 135* < > 138 132* 132* K 3.9 < > 4.0 5.4* 5.1 CL 104 < > 107 102 102 CO2 28.6 < > 27.5 26.2 21.7 AGAP 2.4* < > 3.5* 3.8* 8.3 BUN 18 < > 22* 26* 27* CR 1.18* < > 1.17* 1.51* 1.45* BUNCREATININ 15.3 < > 18.8 17.2 18.6 GLU 230* < > 185* 315* 336* CA 9.3 < > 8.6 9.8 9.6 TP 8.8* -- -- -- -- ALB 3.4 -- -- -- -- TBIL 0.3 -- -- -- -- ALKP 134 -- -- -- -- AST 21 -- -- -- -- ALT 23 -- -- -- -- < > = values in this interval not displayed. No results for input(s): INR in the last 168 hours. Invalid input(s): PT Recent Labs Lab 09/05/22 0956 TROP 6 Recent Labs Lab 09/03/22 1948 LACTICACID 1.5 No results for input(s): PH, PCO2, PO2, [id number], BICARBWB, BASEDEFICIT, BASEEXCESS in the sqrs448 hours. Cultures: Blood: Results for orders placed or performed during the hospital encounter of 09/03/22 (from the past 168hour(s)) CULTURE, BACTERIA, BLOOD Collection Time: 09/03/22 7:48 PM Specimen: BLOOD Result Value Ref Range SPEC DESCRIPTION BLOOD SPECIAL REQUESTS NO SPECIAL REQUEST CULTURE RESULT NO GROWTH 4 DAYS CULTURE, BACTERIA, BLOOD Collection Time: 09/03/22 7:36 PM Specimen: BLOOD Result Value Ref Range SPEC DESCRIPTION BLOOD SPECIAL REQUESTS NO SPECIAL REQUEST CULTURE RESULT NO GROWTH 4 DAYS Urine: Results for orders placed or performed during the hospital encounter of 09/03/22 (from the past 168hour(s)) CULTURE URINE Collection Time: 09/03/22 2:52 PM Specimen: URINE, CLEAN CATCH Result Value Ref Range SPEC DESCRIPTION URINE CLEAN CATCH SPECIAL REQUESTS NO SPECIAL REQUEST CULTURE RESULT NO GROWTH 2 DAYS Microbiology Results (last 14 days) Procedure Component Value Units Date/Time CULTURE, BACTERIA, BLOOD [[id number]] Collected: 09/03/221947 Order Status: Sent Lab Status: In process Updated: 09/03/221954 Specimen: BLOOD CULTURE, BACTERIA, BLOOD [[id number]] Collected: 09/03/22 193 Order Status: Sent Lab Status: In process Updated: 09/03/221955 Specimen: BLOOD CULTURE URINE [[id number]] Collected: 09/03/22 1452 Order Status: No result Lab Status: In process Updated: 09/03/22 1520 Radiology studies: Radiology Results (Last 48 hours) 09/07/222055 MRI FOOT LT WO CON Final result Impression: IMPRESSION: 1. No evidence of osteomyelitis. 2. Second and third digit amputations correlate with the x-ray appearance. 3. Nonspecific soft tissue findings. 4. Multifocal midfoot abnormalities. Referred By: Interpreted By: Walter Alvarez MD, 09/07/2022 8:58 PM 09/07/22 1229 XR FOOT LT 2V Final result Impression: IMPRESSION: 1. Prior second and third digit amputations. Soft tissue swelling without clear evidence of osteomyelitis. If there is significant clinical concern, further evaluation with MRI recommended. Referred By: Interpreted By: Isaías Jones MD, 09/07/2022 12:50 PM Cosigned by Arelis Bermeo MD at 09/08/2022 4:39 PM CDT Associated attestation - Arelis Bermeo MD - 09/08/2022 4:39 PM CDT Patient discussed and evaluated with me face to face. I agree with documentation as above, MD Yoav. * Sofy Carrington MD - 09/07/2022 12:29 PM CDT Interval Assessment and Plan: Patient is a 52-year-old female with PMHx of diabetes hypertension, hyperlipidemia, right diabetic foot ulcer, Charcot foot, neuropathy, and 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 Admitted for pain in toes of R foot, with concern for possible osteomyelitis. Osteomyelitis of 1st and 2nd digits of R foot MRI of foot suggests possible mild osteomyelitis in distal phalanges of 1st and 2nd toes. Suspect mild chronic osteomyelitis. No clinical evidence of acute infection. No adjacent soft tissue wounds. Pedal pulses intact. - Vascular surgery (Dr. Hernandez) previously consulted -> advised no concern for significant arterial insufficiency, no indication for vascular intervention at this time - S/p bone biopsy/culture on 09/06 with podiatry (Dr. Cummings) -> f/u culture results - Will hold off on any broadspectrum Abx therapy until culture results back -Pain control: Tylenol/increase Oxycodone to 5mg prn for moderate, Oxycodone 10mg prn for severe -Daily CBC Left foot pain Leukocytosis Patient now complaining of pain in anterior mid-foot, as well as over fifth metatarsal of left foot. Afebrile. Also with new leukocytosis, possibly reactive POD#1 s/p bone biopsy. - Check XR & MRI of left foot to r/o osteomyelitis vs. Underlying osseous abnormality HEMA Hyperkalemia Cr uptrended overnight, new HEMA. Possibly 2/2 decreased po intake with procedure yesterday. With new hyperK to 5.4 as well, uncertain if hemolyzed or not. - Repeat BMP now (concern for possible hemolyzed sample this AM) - Follow daily BMP UTI Symptoms have improved with treatment. UA on admission concerning for infection, though urine culture remains NGx2D. - Complete Macrobid BID (EOT 09/07/22) given symptoms present on admission consistent with UTI and has noted symptom improvement with treatment - If sx persist after x5 days of Abx, consider alternative diagnosis such as interstitial cystitis or vaginitis T2DM Last known A1c 8.3 from June 2022. Home meds reportedly include Humalog 60 units in the morning and 55 units in the evening and Trulicity - Worsening hyperglycemia up near 400 - Will give NPH 20U x1 this AM - Increase Lantus to 30U qhs + 10U w/ meals + resistant correctional scale - Hypoglycemia protocols in place Hypertension - Continue lisinopril 20 and amlodipine 10 GERD - Will trial Pepcid - If no response, will trial PPI Stable Chronic Conditions: HLD- continue statin Anxiety-continue home Atarax scheduled nightly + prn Fluids: PO Diet: Carb controlled VTE Prophylaxis: Lovenox Subjective: Patient developed worsening foot pain overnight, worse in R, but has also developed pain in L foot (says on top of foot and on side of foot). Also reports continued episodic hot flashes & night sweats, ongoing for several months now. [place] like it was worse last night. Review of Systems: See above. Denies chest pain or SOB Scheduled medications: amLODIPine 10 mg Oral Nightly at bedtime atorvastatin 20 mg Oral Nightly at bedtime enoxaparin 40 mg Subcutaneous Nightly (enoxaparin) famotidine 20 mg Oral 2 times per day hydrOXYzine 25 mg Oral Nightly at bedtime insulin glargine 30 Units Subcutaneous Nightly at bedtime And insulin lispro 10 Units Subcutaneous TID AC insulin lispro 0-18 Units Subcutaneous TID AC And insulin lispro 0-9 Units Subcutaneous Nightly at bedtime insulin NPH 20 Units Subcutaneous Once lisinopril 20 mg Oral QPM morphine 1 mg Intravenous Once nitrofurantoin (macrocrystal-monohydrate) 100 mg Oral 2 times per day sodium chloride 0.9% 1,000 mL Intravenous Once PRN medications: acetaminophen, cyclobenzaprine, dextrose 10 % bolus, diphenhydrAMINE, glucagon, glucose, hydrOXYzine, ondansetron, oxyCODONE immediate release, pantoprazole EC, phenazopyridine, polyethylene glycol, traMADol Objective: Temp: [97.2 ??F (36.2 ??C)-98.6 ??F (37 ??C)] 97.7 ??F (36.5 ??C) Pulse: [80-96] 83 Resp: [12-19] 18 BP: (106-146)/(56-79) 127/73 Blood pressure 127/73, pulse 83, temperature 97.7 ??F (36.5 ??C), resp. rate 18, height 5' 6 (1.676 m), weight 90.4 kg (199 lb 4.7 oz), last menstrual period 10/29/2004, SpO2 100 %. Intake/Output Summary (Last 24 hours) at 09/07/2022 1229 Last data filed at 09/07/2022 0900 Gross per 24 hour Intake 990 ml Output -- Net 990 ml Physical Exam: General: Well developed, Obese. NAD. HEENT: PERRL, no scleral icterus, moist mucus membranes Cardiovascular: Normal S1, S2. Normal rate. Regular rhythm. No murmurs appreciated. Respiratory: No increased work of breathing. CTAB. Abdomen: Soft, non-distended, mild epigastric TTP, no rebound or guarding Extremities: No edema, DP and PT pulses palpable bilaterally R foot with band-aids intact over 1st and 2nd toes Moderately tender to palpation over L anterior mid-foot and diffusely across L fifth metatarsal. Skin: no rashes Psych: normal affect Last 5 Recorded Weights 09/03/22 1314 09/04/22 1944 09/05/22 0427 09/06/22 0447 Weight: 85.6 kg (188 lb 11.4 oz) 91 kg (200 lb 9.9 oz) 90.3 kg (199 lb 1.2 oz) 90.4 kg (199 lb 4.7 oz) 09/07/22 042 Weight: 90.4 kg (199 lb 4.7 oz) Labs: Recent Labs Lab 09/05/22 0956 09/06/2245309/07/22 0440 WBC 10.9 7.6 15.9* RBC 3.73* 3.58* 4.48 HGB 11.3* 10.8* 13.4 HCT 35.5* 32.7* 39.8 MCV 95.2 91.3 88.8 MCH 30.3 30.2 29.9 MCHC 31.8* 33.0 33.7 PLT 285 246 328 RDW 13.1 12.8 12.4 MPV 11.3 11.0 11.4 PERNEU 69.9 45.4 88.4 PERLYM 26.0 47.4 9.5 PERMON 2.4 5.4 1.3 LYMC 2.84 3.59 1.52 MONOC 0.26 0.41 0.21* EOSC 0.09 0.09 0.00* BASOC 0.05 0.04 0.04 DTYPE AUTOMATED DIFFERENTIAL AUTOMATED DIFFERENTIAL AUTOMATED DIFFERENTIAL Recent Labs Lab 09/03/22 1454 09/04/22 0820 09/05/22 0956 09/06/22 04509/07/22 0440 NA 135* < > 131* 138 132* K 3.9 < > 4.9 4.0 5.4* CL 104 < > 104 107 102 CO2 28.6 < > 23.2 27.5 26.2 AGAP 2.4* < > 3.8* 3.5* 3.8* BUN 18 < > 26* 22* 26* CR 1.18* < > 1.41* 1.17* 1.51* BUNCREATININ 15.3 < > 18.4 18.8 17.2 GLU 230* < > 200* 185* 315* CA 9.3 < > 9.0 8.6 9.8 TP 8.8* -- -- -- -- ALB 3.4 -- -- -- -- TBIL 0.3 -- -- -- -- ALKP 134 -- -- -- -- AST 21 -- -- -- -- ALT 23 -- -- -- -- < > = values in this interval not displayed. No results for input(s): INR in the last 168 hours. Invalid input(s): PT Recent Labs Lab 09/05/22 0956 TROP 6 Recent Labs Lab 09/03/221947 LACTICACID 1.5 No results for input(s): PH, PCO2, PO2, [id number], BICARBWB, BASEDEFICIT, BASEEXCESS in the [id number] hours. Cultures: Blood: Results for orders placed or performed during the hospital encounter of 09/03/22 (from the past 168hour(s)) CULTURE, BACTERIA, BLOOD Collection Time: 09/03/22 7:48 PM Specimen: BLOOD Result Value Ref Range SPEC DESCRIPTION BLOOD SPECIAL REQUESTS NO SPECIAL REQUEST CULTURE RESULT NO GROWTH 4 DAYS CULTURE, BACTERIA, BLOOD Collection Time: 09/03/22 7:36 PM Specimen: BLOOD Result Value Ref Range SPEC DESCRIPTION BLOOD SPECIAL REQUESTS NO SPECIAL REQUEST CULTURE RESULT NO GROWTH 4 DAYS Urine: Results for orders placed or performed during the hospital encounter of 09/03/22 (from the past 168hour(s)) CULTURE URINE Collection Time: 09/03/22 2:52 PM Specimen: URINE, CLEAN CATCH Result Value Ref Range SPEC DESCRIPTION URINE CLEAN CATCH SPECIAL REQUESTS NO SPECIAL REQUEST CULTURE RESULT NO GROWTH 2 DAYS Microbiology Results (last 14 days) Procedure Component Value Units Date/Time CULTURE, BACTERIA, BLOOD [[id number]] Collected: 09/03/221947 Order Status: Sent Lab Status: In process Updated: 09/03/221954 Specimen: BLOOD CULTURE, BACTERIA, BLOOD [[id number]] Collected: 09/03/221935 Order Status: Sent Lab Status: In process Updated: 09/03/221955 Specimen: BLOOD CULTURE URINE [[id number]] Collected: 09/03/22 1452 Order Status: No result Lab Status: In process Updated: 09/03/22 1520 Radiology studies: Radiology Results (Last 48 hours) None Cosigned by Arelis Bermeo MD at 09/07/2022 4:39 PM CDT Associated attestation - Arelis Bermeo MD - 09/07/2022 4:39 PM CDT Patient discussed and evaluated with me face to face. I agree with documentation as above. Briefly,52 yo F with pmhx as listed above admitted for pain in right foot and now left foot and possible osteomyelitis s/p right toe biopsy with no growth to date. Imaging studies for MRI overnight for left foot pain and continue to monitor for osteo. No visual signs on examination today of bilateral feet.Continue to monitor for fevers or additional signs of infection, MD Yoav. * Natty Dukes RN - 09/06/2022 12:48 PM CDT 09/06/22 7387 Interdisciplinary Group Conference Team Members Present Physician Physician present for group conference [facility] Barriers to Discharge Barriers Not Medically ready Not Medically ready follow up Bone bx today, will need to wait for path reports Patient to return home with family at time of discharge. * Sofy Carrington MD - 09/06/2022 7:36 AM CDT Interval Assessment and Plan: Patient is a 52-year-old female with PMHx of diabetes hypertension, hyperlipidemia, right diabetic foot ulcer, Charcot foot, neuropathy, and 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 Admitted for pain in toes of R foot, with concern for possible osteomyelitis. Osteomyelitis of 1st and 2nd digits of R foot MRI of foot suggests possible mild osteomyelitis in distal phalanges of 1st and 2nd toes. Suspect mild chronic osteomyelitis. No clinical evidence of acute infection. No adjacent soft tissue wounds. Pedal pulses intact. - Vascular surgery (Dr. Hernandez) previously consulted -> advised no concern for significant arterial insufficiency, no indication for vascular intervention at this time -> agree with likely chronic osteomyelitis & proceeding with bone biopsy/culture - Consulted podiatry (Dr. Cummings) -> bone biopsy/culture today - Will hold off on any broadspectrum Abx therapy until bone bx/culture obtained -Pain control: Tylenol/Tramadol/Annie 5 -Daily CBC UTI Symptoms have improved with treatment. UA on admission concerning for infection, though urine culture remains NGx2D. - Continue Macrobid BID (EOT 09/07/22) given symptoms present on admission consistent with UTI and has noted symptom improvement with treatment - If sx persist after x5 days of Abx, consider alternative diagnosis such as interstitial cystitis or vaginitis T2DM Last known A1c 8.3 from June 2022 Home meds reportedly include Humalog 60 units in the morning and 55 units in the evening and Trulicity - Uptitrate insulin today to 20U qhs + 6U w/ meals + correctional - Hypoglycemia protocols in place Hypertension - Continue lisinopril 20 and amlodipine 10 GERD - Will trial Pepcid - If no response, will trial PPI Stable Chronic Conditions: HLD- continue statin Anxiety-continue home Atarax scheduled nightly + prn Fluids: PO Diet: Carb controlled VTE Prophylaxis: Lovenox Subjective: NAEO. Patient states feeling okay, denies questions/concerns at present. States pain is controlled. Review of Systems: See above Scheduled medications: amLODIPine 10 mg Oral Nightly at bedtime atorvastatin 20 mg Oral Nightly at bedtime enoxaparin 40 mg Subcutaneous Nightly (enoxaparin) famotidine 20 mg Oral 2 times per day hydrOXYzine 25 mg Oral Nightly at bedtime insulin glargine 13 Units Subcutaneous Nightly at bedtime And insulin lispro 4 Units Subcutaneous TID AC insulin lispro 0-16 Units Subcutaneous TID AC And insulin lispro 0-8 Units Subcutaneous Nightly at bedtime lisinopril 20 mg Oral QPM nitrofurantoin (macrocrystal-monohydrate) 100 mg Oral 2 times per day PRN medications: acetaminophen, cyclobenzaprine, dextrose 10 % bolus, diphenhydrAMINE, glucagon, glucose, hydrOXYzine, ondansetron, oxyCODONE immediate release, pantoprazole EC, phenazopyridine, polyethylene glycol, traMADol Objective: Temp: [96.8 ??F (36 ??C)-99.3 ??F (37.4 ??C)] 96.8 ??F (36 ??C) Pulse: [75-98] 80 Resp: [17-19] 19 BP: (106-142)/(52-68) 106/62 Blood pressure 106/62, pulse 80, temperature 96.8 ??F (36 ??C), resp. rate 19, height 5' 6 (1.676 m), weight 90.4 kg (199 lb 4.7 oz), last menstrual period 10/29/2004, SpO2 100 %. Intake/Output Summary (Last 24 hours) at 09/06/2022 0736 Last data filed at 09/05/2022 1330 Gross per 24 hour Intake 440 ml Output -- Net 440 ml Physical Exam: General: Well developed, Obese. NAD. HEENT: PERRL, no scleral icterus, moist mucus membranes Cardiovascular: Normal S1, S2. Normal rate. Regular rhythm. No murmurs appreciated. Respiratory: No increased work of breathing. CTAB. Abdomen: Soft, non-distended, mild epigastric TTP, no rebound or guarding Extremities: No edema, DP and PT pulses palpable bilaterally See image of R foot below, with attention to digits 1 and 2. Digits are warm and non-painful to touch. Skin: no rashes Psych: normal affect Last 5 Recorded Weights 09/03/22 1314 09/04/22 1944 09/05/22 0427 09/06/22 0447 Weight: 85.6 kg (188 lb 11.4 oz) 91 kg (200 lb 9.9 oz) 90.3 kg (199 lb 1.2 oz) 90.4 kg (199 lb 4.7 oz) Labs: Recent Labs Lab 09/04/22 0820 09/05/22 0956 09/06/22 0454 WBC 8.7 10.9 7.6 RBC 3.84* 3.73* 3.58* HGB 11.5* 11.3* 10.8* HCT 34.5* 35.5* 32.7* MCV 89.8 95.2 91.3 MCH 29.9 30.3 30.2 MCHC 33.3 31.8* 33.0 PLT 267 285 246 RDW 13.0 13.1 12.8 MPV 11.3 11.3 11.0 PERNEU 50.5 69.9 45.4 PERLYM 42.8 26.0 47.4 PERMON 4.8 2.4 5.4 LYMC 3.72 2.84 3.59 MONOC 0.42 0.26 0.41 EOSC 0.10 0.09 0.09 BASOC 0.05 0.05 0.04 DTYPE AUTOMATED DIFFERENTIAL AUTOMATED DIFFERENTIAL AUTOMATED DIFFERENTIAL Recent Labs Lab 09/03/22 1454 09/04/22 0820 09/05/22 0956 09/06/22 0454 NA 135* 138 131* 138 K 3.9 3.7 4.9 4.0 CL 104 106 104 107 CO2 28.6 28.1 23.2 27.5 AGAP 2.4* 3.9* 3.8* 3.5* BUN 18 20* 26* 22* CR 1.18* 1.09* 1.41* 1.17* BUNCREATININ 15.3 18.3 18.4 18.8 GLU 230* 162* 200* 185* CA 9.3 8.8 9.0 8.6 TP 8.8* -- -- -- ALB 3.4 -- -- -- TBIL 0.3 -- -- -- ALKP 134 -- -- -- AST 21 -- -- -- ALT 23 -- -- -- No results for input(s): INR in the last 168 hours. Invalid input(s): PT Recent Labs Lab 09/05/22 0956 TROP 6 Recent Labs Lab 09/03/22 1948 LACTICACID 1.5 No results for input(s): PH, PCO2, PO2, [id number], BICARBWB, BASEDEFICIT, BASEEXCESS in the [id number] hours. Cultures: Blood: Results for orders placed or performed during the hospital encounter of 09/03/22 (from the past 168hour(s)) CULTURE, BACTERIA, BLOOD Collection Time: 09/03/22 7:48 PM Specimen: BLOOD Result Value Ref Range SPEC DESCRIPTION BLOOD SPECIAL REQUESTS NO SPECIAL REQUEST CULTURE RESULT NO GROWTH 3 DAYS CULTURE, BACTERIA, BLOOD Collection Time: 09/03/22 7:36 PM Specimen: BLOOD Result Value Ref Range SPEC DESCRIPTION BLOOD SPECIAL REQUESTS NO SPECIAL REQUEST CULTURE RESULT NO GROWTH 3 DAYS Urine: Results for orders placed or performed during the hospital encounter of 09/03/22 (from the past 168hour(s)) CULTURE URINE Collection Time: 09/03/22 2:52 PM Specimen: URINE, CLEAN CATCH Result Value Ref Range SPEC DESCRIPTION URINE CLEAN CATCH SPECIAL REQUESTS NO SPECIAL REQUEST CULTURE RESULT NO GROWTH 2 DAYS Microbiology Results (last 14 days) Procedure Component Value Units Date/Time CULTURE, BACTERIA, BLOOD [[id number]] Collected: 09/03/221947 Order Status: Sent Lab Status: In process Updated: 09/03/221954 Specimen: BLOOD CULTURE, BACTERIA, BLOOD [[id number]] Collected: 09/03/221935 Order Status: Sent Lab Status: In process Updated: 09/03/221955 Specimen: BLOOD CULTURE URINE [[id number]] Collected: 09/03/22 1452 Order Status: No result Lab Status: In process Updated: 09/03/22 1520 Radiology studies: Radiology Results (Last 48 hours) 09/04/22 1710 MRI FOOT RT WO CON Final result Impression: IMPRESSION: 1. There is very mild bone marrow edema within the distal phalanges of the first and second toes. If there are adjacent soft tissue wounds, this is suggestive of mild osteomyelitis. 2. No drainable fluid collection or abscess. 3. 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 Ordered By: SOFY CARRINGTON Interpreted By: Oj Ward DO, 09/04/2022 5:43 PM Cosigned by Kirit Yoon MD at 09/06/2022 3:19 PM CDT Associated attestation - Kirit Yoon MD - 09/06/2022 3:19 PM CDT I reviewed with the resident the medical history and the resident???s findings on physical examination. I discussed with the resident the patient???s diagnosis and concur with the treatment plan as documented in the resident note. Teaching physician supervised resident in person. Present for this entire encounter. * Hubert Hernandez MD - 09/05/2022 9:48 PM CDT Images from the original note were not included. Lena Youngblood is a 52-year-old female Subjective: No complaints Soft tissue infection of foot Current Facility-Administered Medications Medication Dose Route Frequency Provider Last Rate Last Admin acetaminophen (TYLENOL) tablet 650 mg 650 mg Oral Q4H PRN Nick Hernandes MD 650 mg at 09/05/222027 amLODIPine (NORVASC) tablet 10 mg 10 mg Oral Nightly at bedtime Nick Hernandes MD 10 mg at 09/05/222026 atorvastatin (LIPITOR) tablet 20 mg 20 mg Oral Nightly at bedtime Nick Hernandes MD 20 mg at 09/05/222026 cyclobenzaprine (FLEXERIL) tablet 10 mg 10 mg Oral TID PRN Nick Hernandes MD dextrose 10 % bolus infusion 125-250 mL 125-250 mL Intravenous PRN Nick Hernandes MD diphenhydrAMINE (BENADRYL) capsule 25 mg 25 mg Oral Q4H PRN Nick Hernandes MD enoxaparin (LOVENOX) 40 MG/0.4ML syringe 40 mg 40 mg Subcutaneous Nightly (enoxaparin) Nick Hernandes MD 40 mg at 09/05/222027 famotidine (PEPCID) tablet 20 mg 20 mg Oral 2 times per day Sofy Carrington MD 20 mg at glucagon injection 1 mg 1 mg Intramuscular Once PRN Nick Hernandes MD glucose oral gel 32-64 mL 15-30 g of dextrose Oral PRN Nick Hernandes MD hydrOXYzine (ATARAX) tablet 25 mg 25 mg Oral Nightly at bedtime Nick Hernandes MD 25 mg at 09/05/222027 hydrOXYzine (VISTARIL) capsule 25 mg 25 mg Oral TID PRN Sofy Carrington MD insulin glargine (LANTUS) injection 13 Units 13 Units Subcutaneous Nightly at bedtime Sofy Carrington MD 13 Units at 09/05/222027 And insulin lispro (HUMALOG) injection 4 Units 4 Units Subcutaneous TID NORTH Carrington MD 4 Units at 09/05/221225 insulin lispro (HUMALOG) injection 0-16 Units 0-16 Units Subcutaneous TID AC Sofy Carrington MD 10 Units at 09/05/221225 And insulin lispro (HUMALOG) injection 0-8 Units 0-8 Units Subcutaneous Nightly at bedtime Sofy Carrington MD 3 Units at 09/05/222028 lisinopril (PRINIVIL) tablet 20 mg 20 mg Oral QPM Sofy Carrington MD 20 mg at 09/05/222027 nitrofurantoin (macrocrystal-monohydrate) (MACROBID) capsule 100 mg 100 mg Oral 2 times per day Sofy Carrington MD 100 mg at 09/05/222026 ondansetron (ZOFRAN) injection 4 mg 4 mg Intravenous Q8H PRN Felice Reeves MD 4 mg at 09/05/22 0628 oxyCODONE immediate release (ROXICODONE) tablet 5 mg 5 mg Oral Q4H PRN Sofy Carrington MD 5 mg at 09/05/22 1225 pantoprazole EC (PROTONIX) tablet 40 mg 40 mg Oral Daily PRN Nick Hernandes MD phenazopyridine tablet 190 mg 190 mg Oral TID PRN Sofy Carrington MD polyethylene glycol (GLYCOLAX) packet 17 g 17 g Oral Daily PRN Nick Hernandes MD 17 g at 016 traMADol (ULTRAM) tablet 50 mg 50 mg Oral Q6H PRN Audie Hightower DO 50 mg at 09/04/22 0629 Allergies Allergen Reactions Fish Oil Unknown Amoxicillin Rash Penicillins Rash Review of Systems Constitutional: Negative. Respiratory: Negative. Cardiovascular: Negative. Objective: I/O last 3 completed shifts: In: 680 [P.O.:680] Out: - Blood pressure (!) 142/68, pulse 94, temperature 99.3 ??F (37.4 ??C), temperature source Oral, resp. rate 19, height 5' 6 (1.676 m), weight 90.3 kg (199 lb 1.2 oz), last menstrual period 10/29/2004,SpO2 100 %. Physical Exam Vitals reviewed. Cardiovascular: Rate and Rhythm: Normal rate. Pulmonary: Effort: Pulmonary effort is normal. Skin: Neurological: Mental Status: She is alert. Lab Results Component Value Date NA 131 (L) 09/05/2022 K 4.9 09/05/2022 CL 104 09/05/2022 CO2 23.2 09/05/2022 AGAP 3.8 (L) 09/05/2022 BUN 26 (H) 09/05/2022 CR 1.41 (H) 09/05/2022 BUNCREATININ 18.4 09/05/2022 GFRNON 53 (L) 05/10/2021 GFR 62 (L) 05/10/2021 GLU 200 (H) 09/05/2022 CA 9.0 09/05/2022 Lab Results Component Value Date WBC 10.9 09/05/2022 HGB 11.3 (L) 09/05/2022 PLT 285 09/05/2022 Lab Results Component Value Date CHOL 184 06/26/2022 TRI 238 (H) 06/26/2022 HDL 44 06/26/2022 TP 8.8 (H) 09/03/2022 ALB 3.4 09/03/2022 ALT 23 09/03/2022 HGBA1C 8.3 (H) 06/26/2022 TSH 1.990 07/09/2021 Principal Problem: Soft tissue infection of foot SNOMED CT(R): SOFT TISSUE INFECTION Active Problems: Necrotic toes (CMS/HCC) SNOMED CT(R): GANGRENE OF TOE Plan: The patient's MRI was significant for osteomyelitis. I suspect that the osteomyelitis is chronic in nature. Would consider bone biopsy for directed antibiotic therapy. HUBERT HERNANDEZ MD 09/05/2022 * Sofy Carrington MD - 09/05/2022 6:43 AM CDT Images from the original note were not included. Interval Assessment and Plan: Patient is a 52-year-old female with PMHx of diabetes hypertension, hyperlipidemia, right diabetic foot ulcer, Charcot foot, neuropathy, and 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 Admitted for pain in toes of R foot, with concern for possible osteomyelitis. Osteomyelitis of 1st and 2nd digits of R foot MRI of foot suggests possible mild osteomyelitis in distal phalanges of 1st and 2nd toes. Suspect mild chronic osteomyelitis. No clinical evidence of acute infection. No adjacent soft tissue wounds. Pedal pulses intact. - Vascular surgery (Dr. Hernandez) previously consulted -> advised no concern for significant arterial insufficiency, no indication for vascular intervention at this time -> agree with likely chronic osteomyelitis & proceeding with bone biopsy/culture - Consulted podiatry (Dr. Cummings) -> tentative plan for bone biopsy/culture tomorrow (09/06) -> will make NPO after midnight - Will hold off on any broadspectrum Abx therapy until bone bx/culture obtained -Pain control: Tylenol/Tramadol/Annie 5 -Daily CBC UTI Symptoms have improved with treatment. UA on admission concerning for infection, though urine culture remains NGx2D. - D/c Rocephin - Switch to po Macrobid BID (EOT 09/07/22) given symptoms present on admission consistent with UTI and has noted symptom improvement with treatment - If sx persist after x5 days of Abx, consider alternative diagnosis such as interstitial cystitis or vaginitis T2DM Last known A1c 8.3 from June 2022 Home meds reportedly include Humalog 60 units in the morning and 55 units in the evening and Trulicity - Uptitrate insulin today to 13U qhs + 4U w/ meals + correctional - Hypoglycemia protocols in place Hypertension - Continue lisinopril 20 and amlodipine 10 GERD Episode of burning discomfort this AM as per subjective. Suspect GERD. - Will trial Pepcid - If no response, will trial PPI Stable Chronic Conditions: HLD- continue statin Anxiety-continue home Atarax scheduled nightly + prn Fluids: PO Diet: Carb controlled VTE Prophylaxis: Lovenox Subjective: This morning, patient reported acute onset of chest pain & tightness, in center of chest, non-radiating. Occurred while trying to get out of bed to go to the bathroom. With associated nausea and pain in the right foot as well. No associated shortness of breath, diaphoresis, arm pain or jaw pain. The chest tightness resolved spontaneously soon after MD arrived at bedside. Patient states did not feel anxious at the time, but did develop anxiety after onset of the chest tightness. Also states maybe there was some burning discomfort in the chest as well. EKG was ordered and NSR without ischemic change. Troponin negative. Of note, patient states the pink, flesh-colored region on her R great toe is from prior site of bone biopsy when she had osteomyelitis previously. Review of Systems: See above Scheduled medications: amLODIPine 10 mg Oral Nightly at bedtime atorvastatin 20 mg Oral Nightly at bedtime cefTRIAXone 1 g Intravenous Q24H enoxaparin 40 mg Subcutaneous Nightly (enoxaparin) hydrOXYzine 25 mg Oral Nightly at bedtime insulin glargine 0.125 Units/kg Subcutaneous Nightly at bedtime And insulin lispro 0.035 Units/kg Subcutaneous TID AC insulin lispro 0-14 Units Subcutaneous TID AC And insulin lispro 0-7 Units Subcutaneous Nightly at bedtime lisinopril 20 mg Oral QPM PRN medications: acetaminophen, cyclobenzaprine, dextrose 10 % bolus, diphenhydrAMINE, glucagon, glucose, ondansetron, oxyCODONE immediate release, pantoprazole EC, polyethylene glycol, traMADol Objective: Temp: [97.5 ??F (36.4 ??C)-98.8 ??F (37.1 ??C)] 98.8 ??F (37.1 ??C) Pulse: [78-86] 86 Resp: [16-18] 16 BP: (97-154)/(53-120) 130/70 Blood pressure 130/70, pulse 86, temperature 98.8 ??F (37.1 ??C), temperature source Oral, resp. rate 16, height 5' 6 (1.676 m), weight 90.3 kg (199 lb 1.2 oz), last menstrual period 10/29/2004, SpO2 99 %. Intake/Output Summary (Last 24 hours) at 09/05/2022 0643 Last data filed at 09/04/2022 1500 Gross per 24 hour Intake 480 ml Output -- Net 480 ml Physical Exam: General: Well developed, Obese. NAD. HEENT: PERRL, no scleral icterus, moist mucus membranes Cardiovascular: Normal S1, S2. Normal rate. Regular rhythm. No murmurs appreciated. Respiratory: No increased work of breathing. CTAB. Abdomen: Soft, non-distended, mild epigastric TTP, no rebound or guarding Extremities: No edema, DP and PT pulses palpable bilaterally See image of R foot below, with attention to digits 1 and 2. Digits are warm and non-painful to touch. Skin: no rashes Psych: normal affect Last 5 Recorded Weights 09/03/22 1314 09/04/22 1944 09/05/22 0427 Weight: 85.6 kg (188 lb 11.4 oz) 91 kg (200 lb 9.9 oz) 90.3 kg (199 lb 1.2 oz) Labs: Recent Labs Lab 09/03/22 1454 09/04/22 0820 WBC 10.4 8.7 RBC 4.08* 3.84* HGB 12.3 11.5* HCT 36.7* 34.5* MCV 90.0 89.8 MCH 30.1 29.9 MCHC 33.5 33.3 PLT 291 267 RDW 12.8 13.0 MPV 11.5 11.3 PERNEU 62.9 50.5 PERLYM 31.6 42.8 PERMON 3.9 4.8 LYMC 3.29 3.72 MONOC 0.41 0.42 EOSC 0.07 0.10 BASOC 0.06 0.05 DTYPE AUTOMATED DIFFERENTIAL AUTOMATED DIFFERENTIAL Recent Labs Lab 09/03/22 1454 09/04/22 0820 NA 135* 138 K 3.9 3.7 CL 104 106 CO2 28.6 28.1 AGAP 2.4* 3.9* BUN 18 20* CR 1.18* 1.09* BUNCREATININ 15.3 18.3 GLU 230* 162* CA 9.3 8.8 TP 8.8* -- ALB 3.4 -- TBIL 0.3 -- ALKP 134 -- AST 21 -- ALT 23 -- No results for input(s): INR in the last 168 hours. Invalid input(s): PT No results for input(s): TROP, CPK, MB in the last 168 hours. Recent Labs Lab 09/03/22 1948 LACTICACID 1.5 No results for input(s): PH, PCO2, PO2, [id number], BICARBWB, BASEDEFICIT, BASEEXCESS in the [id number] hours. Cultures: Blood: Results for orders placed or performed during the hospital encounter of 09/03/22 (from the past 168hour(s)) CULTURE, BACTERIA, BLOOD Collection Time: 09/03/22 7:48 PM Specimen: BLOOD Result Value Ref Range SPEC DESCRIPTION BLOOD SPECIAL REQUESTS NO SPECIAL REQUEST CULTURE RESULT NO GROWTH 1 DAY CULTURE, BACTERIA, BLOOD Collection Time: 09/03/22 7:36 PM Specimen: BLOOD Result Value Ref Range SPEC DESCRIPTION BLOOD SPECIAL REQUESTS NO SPECIAL REQUEST CULTURE RESULT NO GROWTH 1 DAY Urine: Results for orders placed or performed during the hospital encounter of 09/03/22 (from the past 168hour(s)) CULTURE URINE Collection Time: 09/03/22 2:52 PM Specimen: URINE, CLEAN CATCH Result Value Ref Range SPEC DESCRIPTION URINE CLEAN CATCH SPECIAL REQUESTS NO SPECIAL REQUEST CULTURE RESULT NO GROWTH 1 DAY Microbiology Results (last 14 days) Procedure Component Value Units Date/Time CULTURE, BACTERIA, BLOOD [[id number]] Collected: 09/03/221947 Order Status: Sent Lab Status: In process Updated: 09/03/221954 Specimen: BLOOD CULTURE, BACTERIA, BLOOD [[id number]] Collected: 09/03/22 193 Order Status: Sent Lab Status: In process Updated: 09/03/221955 Specimen: BLOOD CULTURE URINE [[id number]] Collected: 09/03/22 1452 Order Status: No result Lab Status: In process Updated: 09/03/22 1520 Radiology studies: Radiology Results (Last 48 hours) 09/04/22 1710 MRI FOOT RT WO CON Final result Impression: IMPRESSION: 1. There is very mild bone marrow edema within the distal phalanges of the first and second toes. If there are adjacent soft tissue wounds, this is suggestive of mild osteomyelitis. 2. No drainable fluid collection or abscess. 3. 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 Ordered By: SOFY CARRINGTON Interpreted By: Oj Ward DO, 09/04/2022 5:43 PM 09/03/22 1439 XR FOOT RT 3V Final result Impression: IMPRESSION: No acute findings. Referred By: Interpreted By: Arley Gastelum MD, 09/03/2022 2:40 PM Cosigned by Kirit Yoon MD at 09/05/2022 12:35 PM CDT Associated attestation - Kirit Yoon MD - 09/05/2022 12:35 PM CDT I reviewed with the resident the medical history and the resident???s findings on physical examination. I discussed with the resident the patient???s diagnosis and concur with the treatment plan as documented in the resident note. Teaching physician supervised resident in person. Present for this entire encounter. * Nicole Mathews RN - 09/05/2022 4:18 AM CDT Problem: Pain Goal: Patient's pain/discomfort is manageable [...] plans and interventions as needed. Outcome: Progressing Problem: Reduced risk for falls/injury Goal: Reduced Risk for Falls/Injury Outcome: Progressing Goal: Reduced Risk of Confusion (Acute vs Chronic) Outcome: Progressing Goal: Reduced Risk of Symptomatic Depression Outcome: Progressing Goal: Reduced Risk of Altered Elimination Outcome: Progressing Goal: Reduced Risk of Dizziness/Vertigo/Balance Outcome: Progressing Goal: Reduced Risk of Polypharmacy Outcome: Progressing * Teresa Brandon 09/04/2022 2:34 PM CDT I delivered the First Important Message from Medicare (dELiAs) to Lena Youngblood and after explaining the form to the patient, the Patient signed the form. The Patient received a copy of the form fortheir records. 09/04/22 1434 Forms First Important Message from Medicare (dELiAs) Signed Copy delivered * Megha Ballard, OTR - 09/04/2022 1:32 PM CDT 09/04/22 1300 Therapy Visit Reason for admission soft tissue infection of foot Ordering Provider MD Cecilio Subjective Subjective Rm 524 OT orders received. EMR reviewed. Spoke with PT who reports the pt does not warrant skilled OT services, please refer to PT's eval. Will DC this order at this time, if status changes please send new orders * Maryann Benavides, PT - 09/04/2022 10:57 AM CDT 09/04/22 1049 Therapy Visit Ordering Provider MD Cecilio PT Evaluation Completed on 09/04/22 Subjective Room 524: RN cleared pt for PT eval. Pt is in bed with spouse present, agreeable to PT eval, pleasant, and cooperative. Reason for admission soft tissue infection of foot Relevant Comorbidities/ Personal Factors to PT PMH: DM, HTN, OA, renal disorder, diabetic neuropathy, charcot food, UTI, low vision, HCHO, COIVD, CA, CVA, CHF, COPD, CAD Verified Two Patient Identifiers Yes Patient consents to therapy Yes Acute Inpatient PT Time Calculation PT Start Time 1005 PT Stop Time 1018 PT Time Calculation (min) 13 min Precautions General Precautions Fall Risk PPE Used Gloves Instructed on Precautions Yes;Verbalizes understanding Home Living Type of Home House Home Layout One level Home Accessibility 2-4 Steps to enter Home Equipment 2 Wheeled walker;Wheelchair-manual Prior Function Level of [place] Independent with functional transfers;Independent with ambulation;Needs assistance with ADLs;Needs assistance with homemaking Device used at baseline None;2 Wheeled walker;Wheelchair-manual Baseline Ambulation Distance/Assistance household ambulator; limited community ambulator Fall History No Lives With Spouse;Daughter Receives Help From Family ADL Assistance Needs assistance Homemaking Assistance Needs assistance PLOF Comments daughter assists with dressing (at times) and getting in/out of the shower Pain Pain No Activity Tolerance Endurance Tolerates 10 - 20 min activity with rests Endurance Quality Fair Limiting Factors to Endurance Acute deconditioning Cognition Orientation Level Oriented X4 Overall Extremity Assessment Lower Extremity good to fair strength bilateral LEs Bed Mobility Supine to Sit Modified independence Sit to Supine Modified independence TRANSFERS Stand Pivot Transfers SBA/supervision Sit to Stand SBA/supervision Gait Gait Assistance SBA/supervision Assistive Device 2 Wheeled walker Distance Ambulated (ft) 35 ft Other (Comment) shoes donned Stairs Stair Management Assistance JOHN Other (Comment) pt states that she has no concerns for going home Balance Sitting - Static Modified independence Sitting - Dynamic Modified independence Standing - Static SBA;Support of both upper extremities Standing - Dynamic SBA;Support of both upper extremities Assessment Personal Factors/Comorbidities Impacting Care 3-4 personal factors/comorbidities Examination of Body Systems Low (1-2 Elements) Objectives of Body Systems Decreased endurance Clinical Presentation of Patient Evolving and changing characteristics Complexity Level of Evaluation Moderate Prognosis Fair;Good PT Assess/Eval Other (Comment) Pt is a 52 YO female admitted d/t soft tissue infeciton of foot. Prior to admission, pt reports being independent with mobility within the home without a device, however, at times uses a 2ww in the home and definitely out in the community. Today in therapy, pt states that she has ambulated with nursing staff within the room without a device. With PT, pt is able to ambulate longer distances with the use of 2ww, and SBA. Pt states that she feels that she is already at her baseline level of function and does not require PT. Feel that pt will not require skilled PT services at this time. Patient/Family Training Bed Mobility x Transfer Training x Gait Training x Precautions x Discharge Recommendation PT Recommendation Home with assistance PT Equipment Recommended Currently has DME in Place Plan Progress Discontinue PT If this is the last treatment note,it will serve as the discharge summary Yes End of Session End of Session Safety Call light within reach;Family/friend present with patient;Nursing aware of session Interdisciplinary Collaboration RN * Natty Dukes RN - 09/04/2022 8:49 AM CDT NCM performed bedside interview, verified patient's name and : Support: Spouse at bedside, daughter, family Home: 2 story home, lives with spouse and family Ambulation: Reports modified independence prior to admission. DME products: Wheelchair, 2ww ADLs: Reports minimum assist prior to admission. Transport Home: family/friend Skin/Bladder/Bowel: Wound: toes A/O: x4 Communication: Patient can communicate without deficits. Home Health: [facility] Caregiver- 5x/week, 4hrs/day Occupation: [employer] Pharmacy: [employer] [place] [employer] Concerns: No financial concerns reported PCP/Insurance Plan: Yasmin Segura/[facility] Discharge needs: Patient expects to return home with family at time of discharge. RNCM will follow case daily and will continuously evaluate discharge needs based on recommendations and treatment course. 09/04/22 0847 Referral Data Source of Information Patient Patient Information Primary Caregiver Self;Family Current living Situation Spouse/significant other;Family members Type of Residence Private residence Support System Spouse/Significant Other;Immediate family;Pt Requires Support for ADL's Are you employed? Disabled Baseline ADL's Functional Status Minimum assistance Active DME Wheelchair;Front wheel walker Behavior Oriented;Cooperative Communication Talks;Understands speaking;Understands [place] Current Services Being Provided Other Services Personal care worker DC screening tool This is a screening tool it does not take the place of a physical or occupational therapy evaluation. The screening is to screen the patient for what services and destination would be beneficial for patient for next level of care Conversation with the patient/family Discharge to Prior Residence/Living Situation - No New Needs Identified - Will continue to Assess Yes Anticipated DC Plan Living Arrangements Spouse/significant other;Family members Support Systems Spouse/significant other;Family members;Children;Caregiver staff Type of Residence Private residence Patient expects to be discharged to: Home * Sofy Carrington MD - 09/04/2022 7:48 AM CDT Interval Assessment and Plan: Patient is a 52-year-old female with PMHx of diabetes hypertension, hyperlipidemia, right diabetic foot ulcer, Charcot foot, neuropathy, and 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 Admitted for vascularnecrosis with work-up for osteo and UTI. Vascular necrosis of toes of right foot History of osteomyelitis X-ray unremarkable for soft tissue infection however skin of first 2 digits on R foot have necroticappearance. Pedal pulses intact. No acute infection concern at this time. -MRI pending to rule out osteo -Dr. Hernandez consulted from ED for possible vascular intervention; appreciate recs -Pain control: Tylenol/tramadol/Annie 5 -Daily CBC UTI Symptomatic. UA concerning for infection. - Continue Rocephin for now - F/u urine culture results. Switch to po Abx pending sensitivities T2DM Last known A1c 8.3 from June 2022 Home meds reportedly include Humalog 60 units in the morning and 55 units in the evening and Trulicity - BG within inpatient goal thus far on weight-based insulin dosing -> will continue weight-based basal/bolus insulin + correction - Hypoglycemia protocols in place Hypertension - Continue home lisinopril 40 and amlodipine 10 Stable Chronic Conditions: HLD- continue home simvastatin Anxiety-continue home Atarax scheduled nightly Fluids: PO Diet: Carb controlled VTE Prophylaxis: Lovenox Subjective: NAEO. Patient states toe pain is controlled with current medications. Denies any questions/concernsat present. Review of Systems: Denies CP, SOB, abd pain, N/V/D Scheduled medications: amLODIPine 10 mg Oral Nightly at bedtime atorvastatin 20 mg Oral Nightly at bedtime cefTRIAXone 1 g Intravenous Q24H enoxaparin 40 mg Subcutaneous Nightly (enoxaparin) hydrOXYzine 25 mg Oral Nightly at bedtime insulin glargine 0.125 Units/kg Subcutaneous Nightly at bedtime And insulin lispro 0.035 Units/kg Subcutaneous TID AC insulin lispro 0-14 Units Subcutaneous TID AC And insulin lispro 0-7 Units Subcutaneous Nightly at bedtime lisinopril 40 mg Oral Daily PRN medications: acetaminophen, cyclobenzaprine, dextrose 10 % bolus, diphenhydrAMINE, glucagon, glucose, morphine, ondansetron, pantoprazole EC, polyethylene glycol, traMADol Objective: Temp: [98.1 ??F (36.7 ??C)-98.4 ??F (36.9 ??C)] 98.2 ??F (36.8 ??C) Pulse: [86-92] 86 Resp: [16-18] 16 BP: (126-177)/(70-99) 126/70 Blood pressure 126/70, pulse 86, temperature 98.2 ??F (36.8 ??C), resp. rate 16, height 5' 6 (1.676 m), weight 85.6 kg (188 lb 11.4 oz), last menstrual period 10/29/2004, SpO2 98 %. No intake or output data in the 24 hours ending 09/04/22 0748 Physical Exam: General: Well developed, Obese. NAD. HEENT: PERRL, no scleral icterus, moist mucus membranes Cardiovascular: Normal S1, S2. Normal rate. Regular rhythm. No murmurs appreciated. Respiratory: No increased work of breathing. CTAB. Abdomen: Soft, non-tender. Extremities: No edema, PT pulses palpable bilaterally Right foot with 1st and 2nd digits slightly cool to touch, with blackened appearance Skin: no rashes Psych: normal affect Last 5 Recorded Weights 09/03/22 1314 Weight: 85.6 kg (188 lb 11.4 oz) Labs: Recent Labs Lab 09/03/22 1454 WBC 10.4 RBC 4.08* HGB 12.3 HCT 36.7* MCV 90.0 MCH 30.1 MCHC 33.5 PLT 291 RDW 12.8 MPV 11.5 PERNEU 62.9 PERLYM 31.6 PERMON 3.9 LYMC 3.29 MONOC 0.41 EOSC 0.07 BASOC 0.06 DTYPE AUTOMATED DIFFERENTIAL Recent Labs Lab 09/03/22 1454 NA 135* K 3.9 CL 104 CO2 28.6 AGAP 2.4* BUN 18 CR 1.18* BUNCREATININ 15.3 GLU 230* CA 9.3 TP 8.8* ALB 3.4 TBIL 0.3 ALKP 134 AST 21 ALT 23 No results for input(s): INR in the last 168 hours. Invalid input(s): PT No results for input(s): TROP, CPK, MB in the last 168 hours. Recent Labs Lab 09/03/22 1948 LACTICACID 1.5 No results for input(s): PH, PCO2, PO2, [id number], BICARBWB, BASEDEFICIT, BASEEXCESS in the [id number] hours. Cultures: Blood: No results found for this visit on 09/03/22 (from the past 168 hour(s)). Urine: No results found for this visit on 09/03/22 (from the past 168 hour(s)). Microbiology Results (last 14 days) Procedure Component Value Units Date/Time CULTURE, BACTERIA, BLOOD [[id number]] Collected: 09/03/221947 Order Status: Sent Lab Status: In process Updated: 09/03/221954 Specimen: BLOOD CULTURE, BACTERIA, BLOOD [[id number]] Collected: 09/03/221935 Order Status: Sent Lab Status: In process Updated: 09/03/221955 Specimen: BLOOD CULTURE URINE [[id number]] Collected: 09/03/22 1452 Order Status: No result Lab Status: In process Updated: 09/03/22 1520 Radiology studies: Radiology Results (Last 48 hours) 09/03/22 1439 XR FOOT RT 3V Final result Impression: IMPRESSION: No acute findings. Referred By: Interpreted By: Arley Gastelum MD, 09/03/2022 2:40 PM Cosigned by Kirit Yoon MD at 09/04/2022 1:36 PM CDT Associated attestation - Kirit Yoon MD - 09/04/2022 1:36 PM CDT I reviewed with the resident the medical history and the resident???s findings on physical examination. I discussed with the resident the patient???s diagnosis and concur with the treatment plan as documented in the resident note. Teaching physician supervised resident in person. Present for this entire encounter. 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 Patient states the pain has been present for 3 weeks and has been worsening. Patient states the pain was similar to when she had her other toes amputated. She had some leftover [place]'s from prior surgery that she has been taking for pain control, but states that it does not help with pain but makes her sleepy. Nothing she does really helps the pain, but using her foot and even resting is very painful. Patient also concerned because she has been having urinary frequency and difficulty emptying her bladder for the last 2 weeks. REVIEW OF SYSTEMS: Review of Systems Constitutional: Negative for chills and fever. Respiratory: Negative for cough and sputum production. Cardiovascular: Negative for chest pain and palpitations. Gastrointestinal: Positive for nausea. Negative for abdominal pain, constipation, diarrhea and vomiting. Genitourinary: Positive for dysuria, flank pain, frequency and urgency. Musculoskeletal: Pain in R foot Neurological: Negative for dizziness and headaches. 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 Authorizing Provider amLODIPine (NORVASC) 10 MG tablet Take 1 tablet by mouth once daily Patient taking differently: Take 1 tablet (10 mg total) by mouth nightly at bedtime. 08/07/22 Yes Yasmin Segura II, MD cyclobenzaprine (FLEXERIL) 10 MG tablet Take 1 tablet (10 mg total) by mouth 3 (three) times daily as needed. Patient taking differently: Take 1 tablet (10 mg total) by mouth 3 (three) times daily as needed for Muscle Spasms. 03/15/22 Yes Yasmin Segura II, MD HUMALOG MIX 75/25 (75-25) 100 UNIT/ML Suspension INJECT 60 UNITS SUBCUTANEOUSLY ONCE DAILY IN THE MORNING THEN 55 ONCE DAILY IN THE EVENING Patient taking differently: Inject 55-65 Units into the skin see administration instructions. INJECT 65 UNITS SUBCUTANEOUSLY ONCE DAILY IN THE MORNING THEN 55 ONCE DAILY IN THE EVENING 08/17/22 Yes Yasmin Segura II, MD HYDROcodone-acetaminophen (NORCO) 5-325 MG tablet Take 1 tablet by mouth every 6 (six) hours as needed. Indications: Acute Pain < 7 Day Supply 12/26/21 Yes ELLEN Johnson hydrocortisone (HYTONE) 2.5 % ointment Apply 1 Application topically daily as needed. Indications: Rash Apply to face 10/28/21 Yes Default History Genericprovider hydrOXYzine (ATARAX) 25 MG tablet Take 1-2 tablets (25-50 mg total) by mouth nightly at bedtime. Indications: Burning Feeling and Itching 10/28/21 Yes Default History Genericprovider lisinopril (PRINIVIL) 40 MG tablet Take 1 tablet by mouth once daily 01/06/22 Yes Yasmin Najera MD simvastatin (ZOCOR) 40 MG tablet TAKE 1 TABLET BY MOUTH AT BEDTIME Patient taking differently: Take 1 tablet (40 mg total) by mouth nightly at bedtime. 10/04/21 Yes Yasmin Segura II, MD dulaglutide (TRULICITY) 3 MG/0.5ML injection Inject 3 mg into the skin once a week. Indications: diabetes Fridays Patient taking differently: Inject 3 mg into the skin once a week. Indications: diabetes 05/22/22 Yasmin Segura II, MD omeprazole 40 MG capsule Take 1 capsule (40 mg total) by mouth in the morning. Patient taking differently: Take 1 capsule (40 mg total) by mouth daily as needed. 07/14/21 Yasmin Segura II, MD ondansetron 4 MG disintegrating tablet Take 1 tablet (4 mg total) by mouth every 8 (eight) hours asneeded for Nausea. 07/11/21 Mendy Mirza MD SOCIAL HISTORY: Social History Socioeconomic History Marital [...] Social Determinants of Health Financial Resource Strain: Not on file Food Insecurity: Not on file Transportation Needs: Not on file Physical Activity: Not on file Stress: Not on file Social Connections: Not on file Intimate Partner Violence: Not on file Housing Stability: Not on file FAMILY HISTORY: Family History Problem Relation Name Age of Onset Diabetes Mother Hypertension Mother Heart Attack Father Hypertension Father Stroke Sister Hypertension Sister Breast Cancer Other cousin 49 PRIMARY CARE PROVIDER: YASMIN SEGURA MD CODE STATUS: Full Code PHYSICAL EXAM: Vitals: Blood pressure (!) 177/99, pulse 89, temperature 98.1 ??F (36.7 ??C), temperature source Oral, resp. rate 17, height 5' 6 (1.676 m), weight 85.6 kg (188 lb 11.4 oz), last menstrual period 10/29/2004, SpO2 98 %., Body mass index is 30.46 kg/m??. Temp: [98.1 ??F (36.7 ??C)] 98.1 ??F (36.7 ??C) Pulse: [89-92] 89 Resp: [16-17] 17 BP: (177)/(96-99) 177/99 Physical Exam Vitals and nursing note reviewed. Constitutional: General: She is not in acute distress. Appearance: Normal appearance. She is obese. She is not ill-appearing. HENT: Right Ear: External ear normal. Left Ear: External ear normal. Nose: Nose normal. Mouth/Throat: Mouth: Mucous membranes are moist. Eyes: Extraocular Movements: Extraocular movements intact. Cardiovascular: Rate and Rhythm: Normal rate and regular rhythm. Pulses: Normal pulses. Heart sounds: Normal heart sounds. Pulmonary: Effort: Pulmonary effort is normal. Breath sounds: Normal breath sounds. Abdominal: General: Abdomen is flat. Palpations: Abdomen is soft. Musculoskeletal: Right lower leg: No edema. Left lower leg: No edema. Skin: General: Skin is dry. Comments: LE b/l cool to the touch R second and great toe has areas of blackness, open ulcer with light pink tissue on R big toe L fourth toe has blackness on it as well Neurological: Mental Status: She is alert and oriented to person, place, and time. Sensory: Sensory deficit (chronic- has LE neuropathy) present. Psychiatric: Mood and Affect: Mood normal. Behavior: Behavior normal. Thought Content: Thought content normal. Judgment: Judgment normal. Labs: Recent Labs Lab 09/03/22 1454 NA 135* K 3.9 CL 104 CO2 28.6 AGAP 2.4* CA 9.3 GLU 230* BUN 18 CR 1.18* AST 21 ALT 23 ALB 3.4 TP 8.8* , Recent Labs Lab 09/03/22 1454 WBC 10.4 RBC 4.08* HGB 12.3 HCT 36.7* MCV 90.0 MCH 30.1 MCHC 33.5 RDW 12.8 PLT 291 MPV 11.5 PERLYM 31.6 PERMON 3.9 BASO 0.6 DTYPE AUTOMATED DIFFERENTIAL Cultures: Microbiology Results (last 14 days) Procedure Component Value Units Date/Time CULTURE URINE [[id number]] Collected: 09/03/22 1452 Order Status: No result Lab Status: In process Updated: 09/03/22 1520 CULTURE, BACTERIA, BLOOD [[id number]] Order Status: Sent Lab Status: No result Specimen: BLOOD CULTURE, BACTERIA, BLOOD [[id number]] Order Status: Sent Lab Status: No result Specimen: BLOOD Cardiac: No results found for this visit on 09/03/22. Radiology studies: Radiology Results (Last 48 hours) 09/03/22 1439 XR FOOT RT 3V Final result Impression: IMPRESSION: No acute findings. 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 Admitted for vascularnecrosis with work-up for osteo and UTI. Vascular Necrosis secondary to PVD History of osteo, the white blood cells within normal limits, elevated CRP X-ray unremarkable for soft tissue infection however skin is blackening and cool to the touch. No acute infection concern at this time. -MRI pending to rule out osteo -Dr. Hernandez consulted from ED; appreciate recs -Pain control: Tylenol/tramadol/Annie 5 -Daily CBC UTI Patient reports burning and mild urgency with urination UA positive for glucose and protein with moderate amount of bacteria -1 g Rocephin every 24 (EOT 09/07) -May transition to oral when safe to discharge - Benadryl ordered as needed as patient reported penicillin allergy of rash, the pen fast performedand showed low risk - Follow-up on blood cultures drawn by ED - Daily CBC T2DM Chronic; uncontrolled Last known A1c 8.3 from June 2022 Home meds include Humalog 60 units in the morning and 55 units in the evening and Trulicity - Patient started on weight based insulin - Correctional ordered - Hypoglycemia protocols in place - Continue to monitor Elevated Creatinine Baseline 1.1 -Encourage p.o. intake -We will continue to give hypertension home meds however continue to monitor -Daily BMP Hypertension Chronic Patient reports she takes her medication at nighttime -Continue lisinopril 40 and amlodipine 10 -Consider HCTZ if patient remains hypertensive -Daily BMP Stable Chronic Conditions: HLD- continue home simvastatin Anxiety-continue home Atarax scheduled nightly Fluids: PO Diet: Carb controlled VTE Prophylaxis: Lovenox Patient Status: Appropriate for observation due to history of painful toes with MRI workup pending.Expected length of stay <48 hours. DISPOSITION: Safe discharge expected to home pending vascular recs and needed intervention AUDIE HIGHTOWER DO PGY-2, Family Medicine Cosigned by Kirit Yoon MD at 09/04/2022 8:24 AM CDT Associated attestation - Kirit Yoon MD - 09/04/2022 8:24 AM CDT I reviewed with the resident the medical history and the resident???s findings on physical examination. I discussed with the resident the patient???s diagnosis and concur with the treatment plan as documented in the resident note. Teaching physician supervised resident in person. Present for this entire encounter. documented in this encounter Consult Notes * Hubert Cummings DPM - 09/06/2022 12:20 PM CDTAssociated Order(s): IP CONSULT TO PODIATRY Podiatry Consult CC: osteomyelitis right foot 1st and 2nd toes HPI: Podiatry was asked to see Lena Youngblood, a 52-year-old female, for osteomyelitis right foot 1st and 2nd toes. She initially presented to ED with increased pain to right toes. She has noticedincreased swelling and discoloration of the 1st and 2nd digits right foot. She does have history of osteomyelitis to the digits which she had a previous PICC line for treatment with IV abx. She denies any recent drainage from the toes. 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 UTI (urinary tract infection) Vision decreased blind right eye, poor vision left eye PSH: Past Surgical History: Procedure Laterality Date 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 SURGERY HYSTERECTOMY 2004, 2019 hysterectomy, cervical surgery RETINAL DETACHMENT SURGERY Right FH: Family History Problem Relation Name Age of Onset Diabetes Mother Hypertension Mother Heart Attack Father Hypertension Father Stroke Sister Hypertension Sister Breast Cancer Other cousin 49 SH: Social History Tobacco Use Smoking status: Never Smokeless tobacco: Never Vaping Use Vaping Use: Never used Substance Use Topics Alcohol use: Yes Comment: few times per year Drug use: No MEDS: Current Facility-Administered Medications: acetaminophen (TYLENOL) tablet 650 mg, 650 mg, Oral, Q4H PRN, Nick Hernandes MD, 650 mg at 09/05/222027 amLODIPine (NORVASC) tablet 10 mg, 10 mg, Oral, Nightly at bedtime, Nick Hernandes MD, 10 mg at 09/05/222026 atorvastatin (LIPITOR) tablet 20 mg, 20 mg, Oral, Nightly at bedtime, Nick Hernandes MD, 20 mg at09/05/222026 cyclobenzaprine (FLEXERIL) tablet 10 mg, 10 mg, Oral, TID PRN, Nick Hernandes MD dextrose 10 % bolus infusion 125-250 mL, 125-250 mL, Intravenous, PRN, Nick Hernandes MD diphenhydrAMINE (BENADRYL) capsule 25 mg, 25 mg, Oral, Q4H PRN, Nick Hernandes MD enoxaparin (LOVENOX) 40 MG/0.4ML syringe 40 mg, 40 mg, Subcutaneous, Nightly (enoxaparin), 40 mg at09/05/222027 AND [COMPLETED] Moderate Risk for VTE, , , Once, Audie Hightower, famotidine (PEPCID) tablet 20 mg, 20 mg, Oral, 2 times per day, Sofy Carrington MD, 20 mg at 09/06/22943 famotidine (PEPCID) tablet 20 mg, 20 mg, Oral, Once, Douglas Loja MD glucagon injection 1 mg, 1 mg, Intramuscular, Once PRN, Nick Hernandes MD glucose oral gel 32-64 mL, 15-30 g of dextrose, Oral, PRN, Nick Hernandes MD hydrOXYzine (ATARAX) tablet 25 mg, 25 mg, Oral, Nightly at bedtime, Nick Hernandes MD, 25 mg at 09/05/222027 hydrOXYzine (VISTARIL) capsule 25 mg, 25 mg, Oral, TID PRN, Sofy Carrington MD insulin glargine (LANTUS) injection 20 Units, 20 Units, Subcutaneous, Nightly at bedtime AND insulin lispro (HUMALOG) injection 6 Units, 6 Units, Subcutaneous, TID AC, Sofy Carrington MD insulin lispro (HUMALOG) injection 0-16 Units, 0-16 Units, Subcutaneous, TID AC, 10 Units at 09/05/22 1226 AND insulin lispro (HUMALOG) injection 0-8 Units, 0-8 Units, Subcutaneous, Nightly at bedtime, Sofy Carrington MD, 3 Units at 09/05/222028 lactated ringers infusion, , Intravenous, Continuous, Douglas Loja MD lisinopril (PRINIVIL) tablet 20 mg, 20 mg, Oral, QPM, Sofy Carrington MD, 20 mg at 09/05/222027 nitrofurantoin (macrocrystal-monohydrate) (MACROBID) capsule 100 mg, 100 mg, Oral, 2 times per day,Sofy Carrington MD, 100 mg at 09/06/22 0944 ondansetron (ZOFRAN) injection 4 mg, 4 mg, Intravenous, Q8H PRN, Felice Reeves MD, 4 mg at 09/05/22 0628 oxyCODONE immediate release (ROXICODONE) tablet 5 mg, 5 mg, Oral, Q4H PRN, Sofy Carrington MD, 5mg at 09/05/22 232 pantoprazole EC (PROTONIX) tablet 40 mg, 40 mg, Oral, Daily PRN, Nick Hernandes MD phenazopyridine tablet 190 mg, 190 mg, Oral, TID PRN, Sofy Carrington MD polyethylene glycol (GLYCOLAX) packet 17 g, 17 g, Oral, Daily PRN, Nick Hernandes MD, 17 g at 09/04/222015 traMADol (ULTRAM) tablet 50 mg, 50 mg, Oral, Q6H PRN, Audie Hightower DO, 50 mg at 09/04/22 0629 ALL: Review of patient's allergies indicates: Fish oil, Amoxicillin, and Penicillins Vitals Filed Vitals: 09/05/22 2005 09/06/22 0050 09/06/22 0447 09/06/22 0728 BP: (!) 142/68 107/52 124/64 106/62 Pulse: 94 86 75 80 Resp: Temp: 99.3 ??F (37.4 ??C) 98.4 ??F (36.9 ??C) 98.2 ??F (36.8 ??C) 96.8 ??F (36 ??C) TempSrc: Oral Oral Oral Temporal SpO2: 100% 100% 99% 100% Weight: 90.4 kg (199 lb 4.7 oz) Height: Labs SODIUM S/P/B Date Value Ref Range Status 09/06/2022 138 136 - 145 MMOL/L Final POTASSIUM S/P/B Date Value Ref Range Status 09/06/2022 4.0 3.5 - 5.1 MMOL/L Final CHLORIDE S/P/B Date Value Ref Range Status 09/06/2022 107 100 - 108 MMOL/L Final CO2 Date Value Ref Range Status 09/06/2022 27.5 21 - 32 MMOL/L Final ANION GAP Date Value Ref Range Status 09/06/2022 3.5 (L) 5 - 15 MMOL/L Final BUN Date Value Ref Range Status 09/06/2022 22 (H) 7 - 18 MG/DL Final CREATININE S/P/B Date Value Ref Range Status 09/06/2022 1.17 (H) 0.55 - 1.02 MG/DL Final BUN CREATININE RATIO Date Value Ref Range Status 09/06/2022 18.8 6 - 26 Final EGFR NON-AFR. AMER. Date Value Ref Range Status 05/10/2021 53 (L) >90 ML/MIN/1.73 M2 Final EGFR AFR. AMER. Date Value Ref Range Status 05/10/2021 62 (L) >90 ML/MIN/1.73 M2 Final Comment: NOTE: eGFR is not calculated for patients <18 years of age. This is an estimated GFR (CKD EPI) and should not be used for calculating drug doses. GFR ESTIMATE Date Value Ref Range Status 09/06/2022 56 (L) >90 ML/MIN/1.73 M2 Final Comment: NOTE: eGFR is not calculated for patients <18 years of age. This is an estimated GFR calculation using the new CKD EPI creatinine equation without race and so does not require a correction factor for race. This estimated GFR should not be used for calculating drug doses. GLUCOSE Date Value Ref Range Status 09/06/2022 185 (H) 70 - 99 MG/DL Final CALCIUM S/P/B Date Value Ref Range Status 09/06/2022 8.6 8.5 - 10.1 MG/DL Final TOTAL PROTEIN S/P/B Date Value Ref Range Status 09/03/2022 8.8 (H) 6.4 - 8.2 G/DL Final ALBUMIN S/P/B Date Value Ref Range Status 09/03/2022 3.4 3.4 - 5.0 G/DL Final BILIRUBIN TOTAL S/P/B Date Value Ref Range Status 09/03/2022 0.3 0.2 - 1.2 MG/DL Final Comment: THIS ASSAY IS NOT RECOMMENDED FOR PATIENTS UNDERGOING TREATMENT WITH ELTROMBOPAG DUE TO THE POTENTIAL FOR FALSELY ELEVATED RESULTS. ALKALINE PHOSPHATASE S/P/B Date Value Ref Range Status 09/03/2022 134 50 - 136 U/L Final AST Date Value Ref Range Status 09/03/2022 21 15 - 37 U/L Final Comment: SLIGHT HEMOLYSIS, RESULT MAY BE AFFECTED. ALT Date Value Ref Range Status 09/03/2022 23 14 - 55 U/L Final ROS Allergy and Immunology ROS: Allergies have been discussed with pt. Neurologically: All CN intact grossly without headache. Respiratory ROS: no cough, shortness of breath, or wheezing Dermatological ROS: discoloration right foot Musculoskeletal ROS: right foot toe pain Exam General appearance: alert, cooperative, no distress Vasc:Capillary refill time less than 3 seconds to the distal aspect of feet, bilaterally. Pedal hair growth is absent. Feet are warm. Neuro: Protective sensation diminshed via 10g monofilament to digits, bilaterally. Derm: Superficial wound to dorsal hallux IPJ right foot. Discoloration to 1st and 2nd digit right foot. Musc: Tenderness to palpation noted to right 1st and 2nd digits. Hallux malleus deformity right foot. Study Result Narrative & Impression EXAMINATION: XR FOOT RT 3V HISTORY: Pain DATE: 09/03/2022 2:19 PM COMPARISON: December 08, 2021 TECHNIQUE: AP, oblique and lateral views of the right foot. 3 images. FINDINGS: No acute fracture or dislocation. No destructive bone lesion. Please note that MRI is more sensitive for the detection of osteomyelitis. Old fracture of the fifth metatarsal. Plantar calcaneal spur. Mild midfoot arthritis. IMPRESSION: No acute findings. Referred By: Interpreted By: Arley Gastelum MD, 09/03/2022 2:40 PM Study Result Narrative & Impression EXAMINATION: MRI FOOT RT WO CON HISTORY: First, second, and third toe pain. Concern for osteomyelitis. COMPARISON: X-ray right foot 09/03/2022. MRI right foot 12/17/2021. TECHNIQUE: Multisequence and multiplanar MR images of the right foot without the use of intravenous contrast. FINDINGS: There is very mild bone marrow edema within the distal phalanges of the first and second toes. If there are adjacent soft tissue wounds, this is suggestive of mild osteomyelitis. No drainable fluid collection or abscess. Alignment is overall maintained. No evidence of acute fracture or dislocation.There is an old healed fracture of the fifth metatarsal. There is prominent arthritic change with associated bone marrow edema in the midfoot, most pronounced medially. No acute appearing muscular abnormalities. No acute tendinous or ligamentous abnormalities. IMPRESSION: 1. There is very mild bone marrow edema within the distal phalanges of the first and second toes. If there are adjacent soft tissue wounds, this is suggestive of mild osteomyelitis. 2. No drainable fluid collection or abscess. 3. 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 Ordered By: SOFY CARRINGTON Interpreted By: Oj Ward DO, 09/04/2022 5:43 PM Assessment - Osteomyelitis 1st and 2nd digit right foot - Diabetes with peripheral neuropathy Plan - Patient seen and evaluated. - Plan is for bone biopsy 1st and 2nd digit right foot. The procedure, risks, benefits, and possible complications have been discussed with the patient and all questions have been answered at this time. The patient wishes to continue with surgical treatment today. HUBERT CUMMINGS DPM * Hubert Hernandez MD - 09/04/2022 1:29 PM CDTAssociated Order(s): IP CONSULT TO VASCULAR SURGERY Images from the original note were not included. Consult History Lena Youngblood is a 52-year-old female who presents with toe discoloration This is a 52-year-old female with a history of diabetes mellitus and osteomyelitis who presents with increased pain in the right toes. The patient reports pain in the right great toe and right secondtoe. She states she has a small wound present on the right great toe. She has noticed increased disc oloration of the toes over the past few weeks. Her past medical history is significant for osteomyelitis. Noninvasive vascular testing within the last 6 months revealed no significant peripheral vascular disease. She denies purulent discharge or drainage from the discolored areas. Past Medical History: Diagnosis Date Arthritis Charcot foot due to diabetes mellitus (CMS/HCC) LEFT FOOT Constipation COVID-19 Diabetes mellitus (CMS/HCC) Diabetic neuropathy (CMS/HCC) High cholesterol Hypertension Renal disorder had [...] Hypertension Sister Breast Cancer Other cousin 49 amLODIPine 10 mg Oral Nightly at bedtime atorvastatin 20 mg Oral Nightly at bedtime cefTRIAXone 1 g Intravenous Q24H enoxaparin 40 mg Subcutaneous Nightly (enoxaparin) hydrOXYzine 25 mg Oral Nightly at bedtime insulin glargine 0.125 Units/kg Subcutaneous Nightly at bedtime And insulin lispro 0.035 Units/kg Subcutaneous TID AC insulin lispro 0-14 Units Subcutaneous TID AC And insulin lispro 0-7 Units Subcutaneous Nightly at bedtime lisinopril 40 mg Oral Daily acetaminophen, cyclobenzaprine, dextrose 10 % bolus, diphenhydrAMINE, glucagon, glucose, morphine, ondansetron, pantoprazole EC, polyethylene glycol, traMADol Prior to Admission medications Medication Sig Start Date End Date Taking? Authorizing Provider amLODIPine (NORVASC) 10 MG tablet Take 1 tablet by mouth once daily Patient taking differently: Take 1 tablet (10 mg total) by mouth nightly at bedtime. 08/07/22 Yes Yasmin Segura II, MD cyclobenzaprine (FLEXERIL) 10 MG tablet Take 1 tablet (10 mg total) by mouth 3 (three) times daily as needed. Patient taking differently: Take 1 tablet (10 mg total) by mouth 3 (three) times daily as needed for Muscle Spasms. 03/15/22 Yes Yasmin Segura II, MD HUMALOG MIX 75/25 (75-25) 100 UNIT/ML Suspension INJECT 60 UNITS SUBCUTANEOUSLY ONCE DAILY IN THE MORNING THEN 55 ONCE DAILY IN THE EVENING Patient taking differently: Inject 55-65 Units into the skin see administration instructions. INJECT 65 UNITS SUBCUTANEOUSLY ONCE DAILY IN THE MORNING THEN 55 ONCE DAILY IN THE EVENING 08/17/22 Yes Yasmin Segura II, MD HYDROcodone-acetaminophen (NORCO) 5-325 MG tablet Take 1 tablet by mouth every 6 (six) hours as needed. Indications: Acute Pain < 7 Day Supply 12/26/21 Yes ELLEN Johnson hydrocortisone (HYTONE) 2.5 % ointment Apply 1 Application topically daily as needed. Indications: Rash Apply to face 10/28/21 Yes Default History Genericprovider hydrOXYzine (ATARAX) 25 MG tablet Take 1-2 tablets (25-50 mg total) by mouth nightly at bedtime. Indications: Burning Feeling and Itching 10/28/21 Yes Default History Genericprovider lisinopril (PRINIVIL) 40 MG tablet Take 1 tablet by mouth once daily 01/06/22 Yes Yasmin Najera MD simvastatin (ZOCOR) 40 MG tablet TAKE 1 TABLET BY MOUTH AT BEDTIME Patient taking differently: Take 1 tablet (40 mg total) by mouth nightly at bedtime. 10/04/21 Yes Yasmin Segura II, MD dulaglutide (TRULICITY) 3 MG/0.5ML injection Inject 3 mg into the skin once a week. Indications: diabetes Fridays Patient taking differently: Inject 3 mg into the skin once a week. Indications: diabetes 05/22/22 Yasmin Segura II, MD omeprazole 40 MG capsule Take 1 capsule (40 mg total) by mouth in the morning. Patient taking differently: Take 1 capsule (40 mg total) by mouth daily as needed. 07/14/21 Yasmin Segura II, MD ondansetron 4 MG disintegrating tablet Take 1 tablet (4 mg total) by mouth every 8 (eight) hours asneeded for Nausea. 07/11/21 Mendy Mirza MD Allergies Allergen Reactions Fish Oil Unknown Amoxicillin Rash Penicillins Rash Review of Systems Constitutional: Negative. HENT: Negative. Eyes: Positive for visual disturbance. Respiratory: Negative. Cardiovascular: Negative. Gastrointestinal: Negative. Musculoskeletal: Positive for arthralgias and myalgias. Skin: Positive for color change and wound. Neurological: Positive for numbness. Hematological: Negative. Psychiatric/Behavioral: Negative. Physical Exam Filed Vitals: 09/04/22 0010 09/04/22 0431 09/04/22 0909 09/04/22 1201 BP: 128/71 126/70 97/68 102/64 Pulse: 86 86 84 78 Resp: 16 18 18 Temp: 98.2 ??F (36.8 ??C) 98.2 ??F (36.8 ??C) 97.5 ??F (36.4 ??C) TempSrc: SpO2: 99% 98% 99% 100% Weight: Height: Physical Exam: Physical Exam Vitals reviewed. Cardiovascular: Rate and Rhythm: Normal rate. Pulmonary: Effort: Pulmonary effort is normal. Skin: General: Skin is dry. Capillary Refill: Capillary refill takes less than 2 seconds. Neurological: Mental Status: She is alert. Mental status is at baseline. Recent Labs Lab 09/03/22 1454 09/04/22 0820 WBC 10.4 8.7 RBC 4.08* 3.84* HGB 12.3 11.5* HCT 36.7* 34.5* MCV 90.0 89.8 MCH 30.1 29.9 MCHC 33.5 33.3 PLT 291 267 RDW 12.8 13.0 MPV 11.5 11.3 PERNEU 62.9 50.5 PERLYM 31.6 42.8 PERMON 3.9 4.8 LYMC 3.29 3.72 MONOC 0.41 0.42 EOSC 0.07 0.10 BASOC 0.06 0.05 DTYPE AUTOMATED DIFFERENTIAL AUTOMATED DIFFERENTIAL Recent Labs Lab 09/03/22 1454 09/04/22 0820 NA 135* 138 K 3.9 3.7 CL 104 106 CO2 28.6 28.1 AGAP 2.4* 3.9* BUN 18 20* CR 1.18* 1.09* BUNCREATININ 15.3 18.3 GLU 230* 162* CA 9.3 8.8 TP 8.8* -- ALB 3.4 -- TBIL 0.3 -- ALKP 134 -- AST 21 -- ALT 23 -- No results for input(s): PTT, INR in the last 168 hours. Invalid input(s): PT Results for orders placed or performed during the hospital encounter of 09/03/22 (from the past 8736 hour(s)) CULTURE URINE Collection Time: 09/03/22 2:52 PM Specimen: URINE, CLEAN CATCH Result Value Ref Range SPEC DESCRIPTION URINE CLEAN CATCH SPECIAL REQUESTS NO SPECIAL REQUEST CULTURE RESULT NO GROWTH 1 DAY Imaging: XR FOOT RT 3V Result Date: 09/03/2022 EXAMINATION: XR FOOT RT 3V HISTORY: Pain DATE: 09/03/2022 2:19 PM COMPARISON: December 08, 2021 TECHNIQUE: AP, oblique and lateral views of the right foot. 3 images. FINDINGS: No acute fracture or dislocation. No destructive bone lesion. Please note that MRI is more sensitive for the detection of osteomyelitis. Old fracture of the fifth metatarsal. Plantar calcaneal spur. Mild midfoot arthritis. IMPRESSION: No acute findings. Referred By: Interpreted By: Arley Gastelum MD, 09/03/2022 2:40 PM Assessment Principal Problem: Soft tissue infection of foot SNOMED CT(R): SOFT TISSUE INFECTION Active Problems: Necrotic toes (CMS/HCC) SNOMED CT(R): GANGRENE OF TOE Plan The patient has increased discomfort in the right toes. Vascular testing revealed no significant arterial insufficiency. Would obtain MRI to rule out osteomyelitis. Thank you for consultation. HUBERT HERNANDEZ MD Consulted by Kirit Yoon MD documented in this encounter Nursing Notes * Evan Fagn RN - 09/08/2022 2:40 AM CDT Pt has had some complaints of severe pain. Pt stated that she had been trying not to take pain medication because she was afraid it was making her sugar was high. Pt was educated. Pt has had no issues. EVAN FANG RN * Evan Fang RN - 09/07/2022 2:30 AM CDT Pt has been having complaints of severe pain in her right foot. Pt states that the pain is worst than the pain in her infected foot. Pt states she is worried her right foot is still infected. Pt alsocomplains of having random hot flashes and feeling faint at random periods of time. Pt states it has been happening since she got Covid. EVAN FANG RN * Nicole Mathews RN - 09/05/2022 7:16 AM CDT At 6:10 am, patient complained of chest pain, chills, nausea and vomiting. When I was enter the room, patient was seated at the edge of the bend, dangling her legs, and she was vomiting She said I feel very cold earlier, and not hot My chest is painful My whole body is tightening, arms and legs After few minutes, when asked how is she feeling, she started to cry and groan. Hyperventilating. She said It's getting better, my chest pain, but now I'm feeling cold again and very nauseous. My head is like spinning Checked her vital signs Informed U Given medication as ordered EKG done She was seen by the U doctor. Monitored accordingly documented in this encounter OR Notes * Op Note - Hubert Cummings DPM - 09/06/2022 1:12 PM CDT Post-Operative Note Surgeon: Dr. HUBERT CUMMINGS DPM Preoperative Diagnosis: Osteomyelitis first and second digit right foot Postoperative Diagnosis: same Procedure: Bone biopsy first and second digit right foot Pathology: Bone biopsy first and second digit right foot Anesthesia: LMA Hemostasis: None EBL: 2 cc Complications: none Indication procedure: Patient is a 52-year-old diabetic female with history of osteomyelitis first and second digit rightfoot. She initially presented to the emergency department due to discoloration and increased pain to the first and second digits. MRI did show concern for osteomyelitis. All risk and benefits were discussed with the patient and she has agreed to proceed with surgery today. Procedure in detail: Patient brought into the operating room and placed in the operative table in supine position. Following IV sedation and LMA, local anesthesia obtained with the patient's first and second digits utilizing 9 cc of one-to-one mixture of 2% lidocaine plain and 0.5% bupivacaine plain. Foot was scrubbed prepped and draped in usual aseptic manner. Attention was directed distal aspect of the patient's first and second digits right foot where stabincision was made at the distal phalanx of each digit. At this time bone biopsy needle was insertedinto the distal phalanx of the first and second digits and bone biopsy was obtained and sent for pathology. Foot was flushed with normal sterile saline. Skin closure was performed with 4-0 nylon. Compressive dressing was applied to the patient's right first and second digits. Patient seems to tolerated both procedure and anesthesia well. She was transferred recovery room with vital signs stable and vascular status intact to digits of right foot. Following brief period of postoperative monitoring, patient will be readmitted to the floor for continued treatment. HUBERT CUMMINGS DPM documented in this encounter ED Notes * Gladys Blanco RN - 09/03/2022 4:30 PM CDT executive manager attempted blood draw and IV access with ultrasound machine. IV access obtained, unable todraw blood. Per ERNP, lactic and blood cultures not necessary at this time. * SIMRAN Wiggins - 09/03/2022 1:30 PM CDT Chief Complaint Chief Complaint Patient presents with Toe Pain Urinary Symptoms History of Present Illness 52-year-old female presents for evaluation of right foot pain along the first three toes and dorsalaspect of the mid foot for 1 week. She complains of darkening skin and swelling along those toes aswell as a sore on her right great toe. Denies any trauma to the foot. She has prior history osteomyelitis of the left foot with amputation of toes on the left foot. Patient also has concerns about a urinary tract infection due to increased frequency and discomfort while urinating. Denies any chest pain, shortness of breath, or abdominal pain. Medical History ALLERGIES: Review of patient's allergies indicates: Allergen Reactions Fish Oil Unknown Amoxicillin Rash Penicillins Rash MEDICATIONS: Prior to Admission medications Medication Sig Start Date End Date Taking? Authorizing Provider acidophilus (FLORAJEN) capsule Take 1 capsule by mouth 2 (two) times daily. 12/26/21 ELLEN Johnson amLODIPine (NORVASC) 10 MG tablet Take 1 tablet by mouth once daily 08/07/22 Yasmin Segura II, MD BD VEO INSULIN SYRINGE U/F 31G X 15/64 1 ML Misc USE 1 SYRINGE TWICE DAILY 08/07/22 Yasmin Segura II, MD cyclobenzaprine (FLEXERIL) 10 MG tablet Take 1 tablet (10 mg total) by mouth 3 (three) times daily as needed. 03/15/22 Yasmin Segura II, MD dulaglutide (TRULICITY) 1.5 MG/0.5ML injection Inject 3 mg into the skin once a week. 04/21/22 Yasmin Segura II, MD dulaglutide (TRULICITY) 1.5 MG/0.5ML injection Inject 1.5 mg into the skin once a week. 04/22/22 Anderson Bravo MD dulaglutide (TRULICITY) 3 MG/0.5ML injection Inject 3 mg into the skin once a week. Indications: diabetes Fridays05/22/22 Yasmin Segura II, MD HUMALOG MIX 75/25 (75-25) 100 UNIT/ML Suspension INJECT 60 UNITS SUBCUTANEOUSLY ONCE DAILY IN THE MORNING THEN 55 ONCE DAILY IN THE EVENING 08/17/22 Yasmin Segura II, MD HYDROcodone-acetaminophen (NORCO) 5-325 MG tablet Take 1 tablet by mouth every 6 (six) hours as needed. Indications: Acute Pain < 7 Day Supply 12/26/21 ELLEN Johnson hydrocortisone (HYTONE) 2.5 % ointment Apply 1 Application topically daily as needed. Indications: Rash Apply to face 10/28/21 Default History Genericprovider hydrOXYzine (ATARAX) 25 MG tablet Take 1-2 tablets (25-50 mg total) by mouth nightly at bedtime. Indications: Burning Feeling and Itching 10/28/21 Default History Genericprovider lisinopril (PRINIVIL) 40 MG tablet Take 1 tablet by mouth once daily 01/06/22 Yasmin Segura II, MD omeprazole 40 MG capsule Take 1 capsule (40 mg total) by mouth in the morning. Patient taking differently: Take 1 capsule (40 mg total) by mouth daily as needed. 07/14/21 Yasmin Segura II, MD ondansetron 4 MG disintegrating tablet Take 1 tablet (4 mg total) by mouth every 8 (eight) hours asneeded for Nausea. 07/11/21 Mendy Mirza MD simvastatin (ZOCOR) 40 MG tablet TAKE 1 TABLET BY MOUTH AT BEDTIME Patient taking differently: Take 1 tablet (40 mg total) by mouth nightly at bedtime. 10/04/21 Yasmin Segura II, MD traMADol (ULTRAM) 50 MG tablet Take 1 tablet (50 mg total) by mouth every 6 (six) hours as needed. Indications: Acute Pain < 3 Day Supply 01/08/22 CYNTHIA Garsia PAST MEDICAL HISTORY: Past Medical History: Diagnosis Date Arthritis Charcot foot due to diabetes mellitus (CMS/HCC) LEFT FOOT Constipation COVID-19 Diabetes mellitus (CMS/HCC) Diabetic neuropathy (CMS/HCC) High cholesterol Hypertension Renal disorder had [...] for chills and fever. HENT: Negative for congestion, sinus pain and sore throat. Eyes: Negative for pain and redness. Respiratory: Negative for cough, chest tightness, shortness of breath and wheezing. Cardiovascular: Negative for chest pain. Gastrointestinal: Negative for abdominal pain, constipation, diarrhea, nausea and vomiting. Genitourinary: Positive for dysuria and urgency. Musculoskeletal: Negative for arthralgias and joint swelling. Right foot pain Skin: Negative for rash and wound. Neurological: Negative for headaches. Psychiatric/Behavioral: Negative for agitation. The patient is not nervous/anxious. Physical Exam Filed Vitals: 09/03/22 1314 09/03/22 1640 09/03/22 1722 BP: (!) 177/96 (!) 177/99 Pulse: 92 89 Resp: Temp: 98.1 ??F (36.7 ??C) TempSrc: Oral SpO2: 100% 99% 98% Weight: 85.6 kg (188 lb 11.4 oz) Height: 5' 6 (1.676 m) Physical Exam Vitals and nursing note reviewed. Constitutional: Appearance: She is well-developed. HENT: Head: Normocephalic. Eyes: Pupils: Pupils are equal, round, and reactive to light. Cardiovascular: Rate and Rhythm: Normal rate and regular rhythm. Heart sounds: Normal heart sounds. Pulmonary: Effort: Pulmonary effort is normal. Breath sounds: Normal breath sounds. Musculoskeletal: General: Tenderness present. Normal range of motion. Skin: General: Skin is warm and dry. Comments: Darkening of skin on dorsum of right foot, prominent extending down to the first and second toes, strong pedal pulse Neurological: Mental Status: She is alert and oriented to person, place, and time. Psychiatric: Mood and Affect: Mood normal. Diagnostic Studies / Procedures ELECTROCARDIOGRAMS: No results found for this visit on 09/03/22. LABORATORY STUDIES: Results for orders placed or performed during the hospital encounter of 09/03/22 CBC W/DIFF AUTOMATED Result Value Ref Range WBC 10.4 4.5 - 11.0 x10'3/uL RBC 4.08 (L) 4.20 - 5.40 x10'6/uL HGB 12.3 12.0 - 16.0 G/DL HCT 36.7 (L) 38.0 - 48.0 % MCV 90.0 81.0 - 99.0 FL MCH 30.1 27.0 - 31.0 PG MCHC 33.5 32.0 - 36.0 G/DL RDW 12.8 11.5 - 14.5 % PLT 291 130 - 400 x10'3/uL MPV 11.5 9.3 - 12.2 FL DIFFERENTIAL TYPE AUTOMATED DIFFERENTIAL NEUTROPHILS 62.9 % LYMPHOCYTES 31.6 % MONOCYTES 3.9 % EOSINOPHILS 0.7 % BASOPHILS 0.6 % IMMATURE GRANS 0.3 % ABS. NEUTROPHILS TOTAL 6.55 1.80 - 7.70 x10'3/uL ABS. LYMPHOCYTES 3.29 1.00 - 4.80 x10'3/uL ABS. MONOCYTES 0.41 0.24 - 0.86 x10'3/uL ABS. EOSINOPHILS 0.07 0.04 - 0.36 x10'3/uL ABS. BASOPHILS 0.06 0.01 - 0.08 x10'3/uL ABS. IMMATURE GRANULOCYTES 0.03 0.00 - 0.49 x10'3/uL COMPREHENSIVE METABOLIC PANEL Result Value Ref Range GLUCOSE 230 (H) 70 - 99 MG/DL BUN 18 7 - 18 MG/DL CREATININE S/P/B 1.18 (H) 0.55 - 1.02 MG/DL SODIUM S/P/B 135 (L) 136 - 145 MMOL/L POTASSIUM S/P/B 3.9 3.5 - 5.1 MMOL/L CHLORIDE S/P/B 104 100 - 108 MMOL/L CO2 28.6 21 - 32 MMOL/L CALCIUM S/P/B 9.3 8.5 - 10.1 MG/DL BILIRUBIN TOTAL S/P/B 0.3 0.2 - 1.2 MG/DL TOTAL PROTEIN S/P/B 8.8 (H) 6.4 - 8.2 G/DL ALBUMIN S/P/B 3.4 3.4 - 5.0 G/DL AST 21 15 - 37 U/L ALT 23 14 - 55 U/L ALKALINE PHOSPHATASE S/P/B 134 50 - 136 U/L ANION GAP 2.4 (L) 5 - 15 MMOL/L BUN CREATININE RATIO 15.3 6 - 26 A/G RATIO 0.6 (L) 1.0 - 2.0 RATIO GFR ESTIMATE 56 (L) >90 ML/MIN/1.73 M2 URINALYSIS Result Value Ref Range Specimen Type URINE CLEAN CATCH COLOR (U) LIGHT YELLOW TRANSPARENCY TURBID SPECIFIC GRAVITY (U) 1.016 1.001 - 1.030 U PH 5.5 5.0 - 9.0 LEUKOCYTES (U) NEGATIVE NEGATIVE NITRITES NEGATIVE NEGATIVE PROTEIN (U) 100 (H) <30 MG/DL GLUCOSE (U) 100 (A) NORMAL MG/DL KETONES (U) NEGATIVE NEGATIVE MG/DL UROBILINOGEN NORMAL NORMAL MG/DL BILIRUBIN (U) NEGATIVE NEGATIVE MG/DL BLOOD (U) TRACE (A) NEGATIVE CULTURE & SENSITIVITY INDICATED? SPECIMEN SETUP FOR CULTURE MUCUS RARE /LPF WBC/HPF 7 (H) <6 /HPF RBC/HPF 2 <6 /HPF BACTERIA (U) MODERATE (A) NONE /HPF SQUAMOUS EPITHELIALS FEW /HPF C-REACTIVE PROTEIN Result Value Ref Range C-REACTIVE PROTEIN 1.99 (H) <0.29 mg/dL SED RATE, ERYTHROCYTE (ESR) Result Value Ref Range ESR 76 (H) <30 MM/HR IMAGING STUDIES: XR FOOT RT 3V Final Result by User, [id number] (09/03 [id number]) EXAMINATION: XR FOOT RT 3V HISTORY: Pain DATE: 09/03/2022 2:19 PM COMPARISON: December 08, 2021 TECHNIQUE: AP, oblique and lateral views of the right foot. 3 images. FINDINGS: No acute fracture or dislocation. No destructive bone lesion. Please note that MRI is more sensitive for the detection of osteomyelitis. Old fracture of the fifth metatarsal. Plantar calcaneal spur. Mild midfoot arthritis. IMPRESSION: No acute findings. Referred By: Interpreted By: Arley Gastelum MD, 09/03/2022 2:40 PM MEDICATIONS: Medications cefTRIAXone (ROCEPHIN) 1 g in sodium chloride 0.9 % 50 mL IVPB (has no administration in time range) diphenhydrAMINE (BENADRYL) capsule 25 mg (has no administration in time range) Current Discharge Medication List ED Course / Medical Decision Making Medical Decision Making Inflammatory markers mildly elevated, patient not otherwise meeting SIRS criteria, she is afebrile,not tachycardic, no leukocytosis. Given her history of osteomyelitis requiring IV antibiotics plan to admit for observation under [facility] team. Vascular consulted. have low suspicion for necrotizing infection Clinical Impression Toe necrosis (CMS/HCC) (Primary) Disposition: Admit NOTE: I dictated portions of this note using [employer] speech recognition software. Occasional wrong word or sound-alike substitutions may have occurred due to the inherent limitations of voice recognition software. SIMRAN WIGGINS 09/03/2022 Dior Maldonado, SIMRAN 09/03/22 1731 Cosigned by Nicole Jolley MD at 09/03/2022 7:10 PM CDT * Abby Delacruz RN - 09/03/2022 1:22 PM CDT Pt reports pain to 1st, 2nd, and 3rd toe on R foot x 1 week. Pt reports she was admitted here in May for PICC placement and IV antibiotics for same complaint. Pt reports darkening and discolorationto toes. Reports decreased sensation to 1st and 2nd toe. Pt also reports concern for UTI. Reports increased frequency and discomfort with urination. documented in this encounter Plan of Treatment Upcoming Encounters Date Type Department Care Team (Late st Contact Info) Description 03/14/2024 11:45 AM CASTING ASSOCIATE Office Visit [facility]-[address] [phone] Marvin Mckeon MD [address] [facility] [address] [place], [place] [phone] 03/20/2024 11:30 AM CASTING ASSOCIATE Office Visit [facility] - [place] [address] [place] [phone] Yasmin Segura II, MD [address] [place], [place] [phone] documented as of this encounter Goals Goal Patient Goal Type Associated Problems Recent Progress Patient-Stated? Author Family - family caregiver with be involved in care transitions and discharge planning Lifestyle No Natty Cheek, RN documented as of this encounter Procedures Procedure Name Priority Date/Time Associated Diagnosis Comments POCT GLUCOSE - CORREA DOCKED DEVICE Routine 09/09/2022 4:39 AM CDT BASIC METABOLIC PANEL Routine 09/09/2022 4:39 AM CDT CBC W/DIFF AUTOMATED Routine 09/09/2022 4:39 AM CDT POCT GLUCOSE - CORREA DOCKED DEVICE Routine 09/08/2022 7:57 PM CDT URINALYSIS WI REFLEX TO CULTURE Routine 09/08/2022 6:07 PM CDT POCT GLUCOSE - CORREA DOCKED DEVICE Routine 09/08/2022 4:04 PM CDT POCT GLUCOSE - CORREA DOCKED DEVICE Routine 09/08/2022 11:58 AM CDT BASIC METABOLIC PANEL Routine 09/08/2022 8:12 AM CDT CBC W/DIFF AUTOMATED Routine 09/08/2022 8:12 AM CDT POCT GLUCOSE - CORREA DOCKED DEVICE Routine 09/08/2022 6:16 AM CDT POCT GLUCOSE - CORREA DOCKED DEVICE Routine 09/08/2022 12:24 AM CDT POCT GLUCOSE - CORREA DOCKED DEVICE Routine 09/07/2022 9:20 PM CDT MRI FOOT LT WO CON STAT 09/07/2022 8: 56 PM CDT POCT GLUCOSE - CORREA DOCKED DEVICE Routine 09/07/2022 5:49 PM CDT POCT GLUCOSE - CORREA DOCKED DEVICE Routine 09/07/2022 4:33 PM CDT TSH W/REFLEX Routine 09/07/2022 12:55 PM CDT BASIC METABOLIC PANEL STAT 09/07/2022 12:54 PM CDT XR FOOT LT 2V Today 09/07/2022 12:29 PM CDT POCT GLUCOSE - CORREA DOCKED DEVICE Routine 09/07/2022 11:20 AM CDT POCT GLUCOSE - CORREA DOCKED DEVICE Routine 09/07/2022 8:04 AM CDT BASIC METABOLIC PANEL Routine 09/07/2022 4:40 AM CDT CBC W/DIFF AUTOMATED Routine 09/07/2022 4:40 AM CDT POCT GLUCOSE - CORREA DOCKED DEVICE Routine 09/07/2022 2:15 AM CDT POCT GLUCOSE - CORREA DOCKED DEVICE Routine 09/07/2022 12:20 AM CDT POCT GLUCOSE - CORREA DOCKED DEVICE Routine 09/06/2022 8:12 PM CDT POCT GLUCOSE - CORREA DOCKED DEVICE Routine 09/06/2022 5:16 PM CDT POCT GLUCOSE - CORREA DOCKED DEVICE Routine 09/06/2022 1:29 PM CDT CULTURE, ANAEROBIC Routine 09/06/2022 1: 00 PM CDT CULTURE, ANAEROBIC Routine 09/06/2022 12 :59 PM CDT EXCISION MASS/CYST/TUMOR 09/06/2022 12:41 PM CDT OSTEOMYELITIS POCT GLUCOSE - CORREA DOCKED DEVICE Routine 09/06/2022 12:09 PM CDT POCT GLUCOSE - CORREA DOCKED DEVICE Routine 09/06/2022 6:23 AM CDT BASIC METABOLIC PANEL Routine 09/06/2022 4:54 AM CDT CBC W/DIFF AUTOMATED Routine 09/06/2022 4:54 AM CDT POCT GLUCOSE - CORREA DOCKED DEVICE Routine 09/06/2022 12:13 AM CDT PATHOLOGY Routine 09/06/2022 12:00 AM CDT POCT GLUCOSE - CORREA DOCKED DEVICE Routine 09/05/2022 7:29 PM CDT POCT GLUCOSE - CORREA DOCKED DEVICE Routine 09/05/2022 4:54 PM CDT POCT GLUCOSE - CORREA DOCKED DEVICE Routine 09/05/2022 12:17 PM CDT BASIC METABOLIC PANEL Routine 09/05/2022 9:56 AM CDT CBC W/DIFF AUTOMATED Routine 09/05/2022 9:56 AM CDT TROPONIN, QUANT STAT 09/05/2022 9:56 AM CDT LIPASE STAT 09/05/2022 9:56 AM CDT ECG 12-LEAD Routine 09/05/2022 6:59 AM CDT POCT GLUCOSE - CORREA DOCKED DEVICE Routine 09/05/2022 6:05 AM CDT POCT GLUCOSE - CORREA DOCKED DEVICE Routine 09/04/2022 8:02 PM CDT POCT GLUCOSE - CORREA DOCKED DEVICE Routine 09/04/2022 5:27 PM CDT MRI FOOT RT WO CON STAT 09/04/2022 5: 10 PM CDT POCT GLUCOSE - CORREA DOCKED DEVICE Routine 09/04/2022 12:02 PM CDT BASIC METABOLIC PANEL Routine 09/04/2022 8:20 AM CDT CBC W/DIFF AUTOMATED Routine 09/04/2022 8:20 AM CDT POCT GLUCOSE - CORREA DOCKED DEVICE Routine 09/03/2022 9:14 PM CDT LACTIC ACID TIMED 09/03/2022 7:48 PM CDT CULTURE, BACTERIA, BLOOD STAT 09/03/2022 7:48 PM CDT CULTURE, BACTERIA, BLOOD STAT 09/03/2022 7:36 PM CDT COMPREHENSIVE METABOLIC PANEL STAT 09/03/2022 2:54 PM CDT C-REACTIVE PROTEIN STAT 09/03/2022 2: 54 PM CDT CBC W/DIFF AUTOMATED STAT 09/03/2022 2:54 PM CDT HC URINALYSIS AUTO W/O MICRO STAT 09/03/2022 2:52 PM CDT URINE BACTERIA CULTURE Routine 2:52 PM CDT XR FOOT RT 3V STAT 09/03/2022 2:39 PM CDT SED RATE, ERYTHROCYTE (ESR) STAT 09/03/2022 1:30 PM CDT documented in this encounter Results * (ABNORMAL) POCT glucose (09/09/2022 4:39 AM CDT) GLUCOSE POC 107(H) 70 - 99 mg/dL 09/09/2022 4:41 AM CDT [facility] 09/09/2022 4:39 AM CDT us Arelis Bermeo MD POCT ORDERABLES - DEVICE Final R esult [facility] [address] [place] [address], * (ABNORMAL) CBC W/DIFF AUTOMATED (09/09/2022 4:39 AM CDT) [facility] WBC 13.2(H) 4.5 - 11.0 x10'3/uL 09/09/2022 4:50 AM CDT [facility] RBC 3.97(L) 4.20 - 5.40 x10'6/uL 09/09/2022 4:50 AM CDT [facility] HGB 11.9(L) 12.0 - 16.0 G/DL 09/09/2022 4:50 AM CDT [facility] HCT 35.4(L) 38.0 - 48.0 % 09/09/2022 4:50 AM CDT [facility] MCV 89.2 81.0 - 99.0 FL 09/09/2022 4:50 AM CDT [facility] MCH 30.0 27.0 - 31.0 PG 09/09/2022 4:50 AM CDT [facility] MCHC 33.6 32.0 - 36.0 G/DL 09/09/2022 4:50 AM CDT [facility] RDW 12.7 11.5 - 14.5 % 09/09/2022 4:50 AM CDT [facility] PLT 289 130 - 400 x10'3/uL 09/09/2022 4:50 AM CDT [facility] MPV 10.9 9.3 - 12.2 FL 09/09/2022 4:50 AM CDT [facility] DIFFERENTIAL TYPE MANUAL DIFFERENTIAL 09/09/2022 6:11 AM CDT [facility] SEG NEUTROPHILS 54 % 6:11 AM CDT [facility] LYMPHOCYTES 41 % 09/09/2022 6:11 AM CDT [facility] MONOCYTES 4 % 09/09/2022 6:11 AM CDT [facility] BASOPHILS 1 % 09/09/2022 6:11 AM CDT [facility] ABS. NEUTROPHILS CALCULATED 7.13 1.80 - 7.70 x10'3/uL 09/09/2022 6:11 AM CDT [facility] ABS.LYMPHOCYTES CALCULATED 5.41(H) 1.00 - 4.80 x10'3/uL 09/09/2022 6:11 AM CDT [facility] ABS. MONOCYTES CALCULATED 0.53 0.24 - 0.86 x10'3/uL 09/09/2022 6:11 AM CDT [facility] ABS. BASOPHIL CALCULATED 0.13(H) 0.01 - 0.08 x10'3/uL 09/09/2022 6:11 AM CDT [facility] RBC MORPHOLOGY RBC MORPHOLOGY APPEARS NORMAL. SLIDE REVIEWED. 09/09/2022 6:11 AM CDT [facility] PLT EST. ADEQUATE 09/09/2022 6:11 AM CDT [facility] 09/09/2022 4:39 AM CDT us Sofy Carrington MD LABORATORY Final Resul t [facility] [address] [place] [address], [place] [phone] * (ABNORMAL) BASIC METABOLIC PANEL (09/09/2022 4:39 AM CDT) GLUCOSE 115(H) 70 - 99 MG/DL 09/09/2022 5:14 AM T [facility] BUN 30(H) 7 - 18 MG/DL 09/09/2022 5:14 AM [facility] CREATININE S/P/B 1.11(H) 0.55 - 1.02 MG/DL 09/09/2022 5:14 AM T [facility] SODIUM S/P/B 138 136 - 145 MMOL/L 09/09/2022 5:14 AM T [facility] POTASSIUM S/P/B 4.3 3.5 - 5.1 MMOL/L 09/09/2022 5:14 AM [facility] CHLORIDE S/P/B 109(H) 100 - 108 MMOL/L 09/09/2022 5:14 AM T [facility] CO2 27.5 21 - 32 MMOL/L 09/09/2022 5:14 AM [facility] CALCIUM S/P/B 9.2 8.5 - 10.1 MG/DL 09/09/2022 5:14 AM [facility] ANION GAP 1.5(L) 5 - 15 MMOL/L 09/09/2022 5:14 AM [facility] BUN CREATININE RATIO 27.0(H) 6 - 26 09/09/2022 5:14 AM [facility] GFR ESTIMATE 60(L) >90 ML/MIN/1.7 3 M2 09/09/2022 5:14 AM [facility] Comment: NOTE: eGFR is not calculated for patients <18 years of age. This is an estimated GFR calculation using the new CKD EPI creatinine equation without race and so does not require a correction factor for race. This estimated GFR should not be used for calculating drug doses. 09/09/2022 4:39 AM CDT us Sofy Carrington MD LABORATORY Final Resul t [facility] [address] [place] [address], [place] [phone] * (ABNORMAL) POCT glucose (09/08/2022 7:57 PM CDT) GLUCOSE POC 211(H) 70 - 99 mg/dL 09/08/2022 8:05 PM CDT [facility] 09/08/2022 7:57 PM CDT Arelis Bermeo MD POCT ORDERABLES - DEVICE Final R esult Performing Organization Address City/[facility]/ZIP Co de Phone Number [facility] [address] [place] [address], [place] [phone] * (ABNORMAL) URINALYSIS WI REFLEX TO CULTURE (09/08/2022 6:07 PM CDT) SPECIMEN TYPE URINE CLEAN CATCH 09/08/2022 6:12 PM CDT [facility] COLOR (U) LIGHT YELLOW 09/08/2022 6:40 PM CDT [facility] TRANSPARENCY CLEAR 09/08/2022 6:40 PM CDT [facility] SPECIFIC GRAVITY (U) 1.013 1.001 - 1.030 09/08/2022 6:40 PM CDT [facility] U PH 5.5 5.0 - 9.0 09/08/2022 6:40 PM CDT [facility] LEUKOCYTES (U) NEGATIVE NEGATIVE 09/08/2022 6:40 PM CDT [facility] NITRITES NEGATIVE NEGATIVE 09/08/2022 6:40 PM CDT [facility] PROTEIN (U) 30(H) <30 MG/DL 09/08/2022 6:40 PM CDT [facility] GLUCOSE (U) NORMAL NORMAL MG/DL 09/08/2022 6:40 PM CDT [facility] KETONES MG/DL (U) NEGATIVE NEGATIVE MG/DL 09/08/2022 6:40 PM CDT [facility] UROBILINOGEN NORMAL NORMAL MG/DL 09/08/2022 6:40 PM CDT [facility] BILIRUBIN (U) NEGATIVE NEGATIVE MG/DL 09/08/2022 6:40 PM CDT [facility] BLOOD (U) NEGATIVE NEGATIVE 09/08/2022 6:40 PM CDT [facility] CULTURE & SENSITIVITY INDICATED? CULTURE IS NOT INDICATED 09/08/2022 6:40 PM CDT [facility] RBC/HPF 1 <6 /HPF 09/08/2022 6:40 PM CDT [facility] SQUAMOUS EPITHELIALS RARE /HPF 09/08/2022 6:40 PM CDT [facility] URINE SPECIMEN OBTAINED BY CLEAN CATCH PROCEDURE / Unknown 09/08/2022 6:07 PM CDT Sofy Carrington MD URINE ORDERABLES Final Resu lt [facility] [address] [place] [address], * (ABNORMAL) POCT glucose (09/08/2022 4:04 PM CDT) GLUCOSE POC 187(H) 70 - 99 mg/dL 09/08/2022 4:06 PM CDT [facility] 09/08/2022 4:04 PM CDT us Arelis Bermeo MD POCT ORDERABLES - DEVICE Final R esult Performing Organization Address City/[facility]/ZIP Co de Phone Number [facility] [address] [place] [address], [place] [phone] * (ABNORMAL) POCT glucose (09/08/2022 11:58 AM CDT) GLUCOSE POC 215(H) 70 - 99 mg/dL 09/08/2022 12:02 PM CDT [facility] 09/08/2022 11:5 8 AM CDT us Arelis Bermeo MD POCT ORDERABLES - DEVICE Final R esult Performing Organization Address City/[facility]/ZIP Co de Phone Number [facility] [address] [place] [address], [place] [phone] * (ABNORMAL) CBC W/DIFF AUTOMATED (09/08/2022 8:12 AM CDT) WBC 16.8(H) 4.5 - 11.0 x10'3/uL 09/08/2022 8:36 AM CDT [facility] RBC 4.20 4.20 - 5.40 x10'6/uL 09/08/2022 8:36 AM CDT [facility] HGB 12.4 12.0 - 16.0 G/DL 09/08/2022 8:36 AM CDT [facility] HCT 37.5(L) 38.0 - 48.0 % 09/08/2022 8:36 AM CDT [facility] MCV 89.3 81.0 - 99.0 FL 09/08/2022 8:36 AM CDT [facility] MCH 29.5 27.0 - 31.0 PG 09/08/2022 8:36 AM CDT [facility] MCHC 33.1 32.0 - 36.0 G/DL 09/08/2022 8:36 AM CDT [facility] RDW 12.9 11.5 - 14.5 % 09/08/2022 8:36 AM CDT [facility] PLT 306 130 - 400 x10'3/uL 09/08/2022 8:36 AM CDT [facility] MPV 11.1 9.3 - 12.2 FL 09/08/2022 8:36 AM CDT [facility] DIFFERENTIAL TYPE AUTOMATED DIFFERENTIAL 09/08/2022 8:36 AM CDT [facility] NEUTROPHILS % 74.1 % 09/08/2022 8:36 AM CDT [facility] LYMPHOCYTES % 21.3 % 09/08/2022 8:36 AM CDT [facility] MONOCYTES % 3.9 % 09/08/2022 8:36 AM CDT [facility] EOSINOPHILS 0.1 % 09/08/2022 8:36 AM CDT [facility] BASOPHILS 0.2 % 09/08/2022 8:36 AM CDT [facility] IMMATURE GRANS % 0.4 % 09/09/19 8:36 AM CDT [facility] ABS. NEUTROPHILS TOTAL 12.46(H) 1.80 - 7.70 x10'3/uL 09/08/2022 8:36 AM CDT [facility] ABS. LYMPHOCYTES 3.57 1.00 - 4.80 x10'3/uL 09/08/2022 8:36 AM CDT [facility] ABS. MONOCYTES 0.66 0.24 - 0.86 x10'3/uL 09/08/2022 8:36 AM CDT [facility] ABS. EOSINOPHILS 0.01(L) 0.04 - 0.36 x10'3/uL 09/08/2022 8:36 AM CDT [facility] ABS. BASOPHILS 0.03 0.01 - 0.08 x10'3/uL 09/08/2022 8:36 AM CDT [facility] ABS. IMMATURE GRANULOCYTES 0.06 0.00 - 0.49 x10'3/uL 09/08/2022 8:36 AM CDT [facility] 09/08/2022 8:12 AM CDT Sofy Carrington MD LABORATORY Final Resul t [facility] [address] [place] [address], [place] [phone] * (ABNORMAL) BASIC METABOLIC PANEL (09/08/2022 8:12 AM CDT) GLUCOSE 120(H) 70 - 99 MG/DL 09/08/2022 8:55 AM CDT [facility] BUN 24(H) 7 - 18 MG/DL 09/08/2022 8:55 AM CDT [facility] CREATININE S/P/B 1.00 0.55 - 1.02 MG/DL 09/08/2022 8:55 AM CDT [facility] SODIUM S/P/B 138 136 - 145 MMOL/L 09/08/2022 8:55 AM CDT [facility] POTASSIUM S/P/B 4.4 3.5 - 5.1 MMOL/L 09/08/2022 8:55 AM CDT [facility] CHLORIDE S/P/B 108 100 - 108 MMOL/L 09/08/2022 8:55 AM CDT [facility] CO2 29.2 21 - 32 MMOL/L 09/08/2022 8:55 AM CDT [facility] CALCIUM S/P/B 9.7 8.5 - 10.1 MG/DL 09/08/2022 8:55 AM CDT [facility] ANION GAP 0.8(L) 5 - 15 MMOL/L 09/08/2022 8:55 AM CDT [facility] BUN CREATININE RATIO 24.0 6 - 26 09/08/2022 8:55 AM CDT [facility] GFR ESTIMATE 68(L) >90 ML/MIN/1.7 3 M2 09/08/2022 8:55 AM CDT [facility] Comment: NOTE: eGFR is not calculated for patients <18 years of age. This is an estimated GFR calculation using the new CKD EPI creatinine equation without race and so does not require a correction factor for race. This estimated GFR should not be used for calculating drug doses. 09/08/2022 8:12 AM CDT Sofy Carrington MD LABORATORY Final Resul t [facility] [address] [place] [address], [place] [phone] * (ABNORMAL) POCT glucose (09/08/2022 6:16 AM CDT) GLUCOSE POC 126(H) 70 - 99 mg/dL 09/08/2022 6:17 AM CDT [facility] 09/08/2022 6:16 AM CDT Arelis Bermeo MD POCT ORDERABLES - DEVICE Final R esult Performing Organization Address [facility] Co de Phone Number [facility] [address] [place] [address], [place] [phone] * (ABNORMAL) POCT glucose (09/08/2022 12:24 AM CDT) GLUCOSE POC 256(H) 70 - 99 mg/dL 09/08/2022 12:26 AM CDT [facility] 09/08/2022 12:2 4 AM CDT Arelis Bermeo MD POCT ORDERABLES - DEVICE Final R esult Performing Organization Address [facility] Co de Phone Number [facility] [address] [place] [address], [place] [phone] * (ABNORMAL) POCT glucose (09/07/2022 9:20 PM CDT) GLUCOSE POC 264(H) 70 - 99 mg/dL 09/07/2022 9:26 PM CDT [facility] 09/07/2022 9:20 PM CDT us Arelis Bermeo MD POCT ORDERABLES - DEVICE Final R esult Performing Organization Address City/[facility] Co de Phone Number [facility] [address] [place] [address], [place] [phone] * MRI FOOT LT WO CON (09/07/2022 8:56 PM CDT) Anatomical Region Laterality Modality Foot Magnetic Resonan ce 09/07/2022 8:58 PM CDT Impressions 09/07/2022 9:10 PM CDT IMPRESSION: 1. ??No evidence of osteomyelitis. 2. ??Second and third digit amputations correlate with the x-ray appearance. 3. ??Nonspecific soft tissue findings. 4. ??Multifocal midfoot abnormalities. Referred By: ?? Interpreted By: Walter Alvarez MD, 09/07/2022 8:58 PM Narrative 09/07/2022 9:10 PM CDT EXAM: MRI FOOT LT WO CON DATE: 09/07/2022 COMPARISON: 12/20/2021. ??X-ray from earlier today. INDICATION: Foot pain TECHNIQUE: Noncontrast multiplanar multisequence imaging. FINDINGS: There is mild increased fluid signal in the superficial soft tissues of the plantar aspect of the midfoot and forefoot. ??Additionally, diffuse fluid signal in the deeper plantar soft tissues tracking with the flexor tendons and the undersurface of multiple metatarsal shafts. ??No focal fluid collection with noncontrast imaging. ??Potential edema or infection. There are multiple abnormal findings associated with most of the intertarsal and tarsal-metatarsal joints. ??Findings correlate with the x-ray appearance. ??Findings could represent either multifocal arthritis or perhaps early Charcot changes. ??Normal bone alignment. On the axial T1 images through the foot, only the lateral sesamoid of the first toe is visualized. ??This could be correlated with any prior surgery. ??Only one confidently identified sesamoid on the x-ray study. Amputations of the second and third digits. ??The remaining bones have normal signal. Procedure Note Walter Alvarez MD - 09/07/2022 EXAM: MRI FOOT LT WO CON DATE: 09/07/2022 COMPARISON: 12/20/2021. X-ray from earlier today. INDICATION: Foot pain TECHNIQUE: Noncontrast multiplanar multisequence imaging. FINDINGS: There is mild increased fluid signal in the superficial softtissues of the plantar aspect of the midfoot and forefoot. Additionally,diffuse fluid signal in the deeper plantar soft tissues tracking with theflexor tendons and the undersurface of multiple metatarsal shafts. Nofocal fluid collection with noncontrast imaging. Potential edema orinfection. There are multiple abnormal findings associated with most of theintertarsal and tarsal-metatarsal joints. Findings correlate with thex-ray appearance. Findings could represent either multifocal arthritis orperhaps early Charcot changes. Normal bone alignment. On the axial T1 images through the foot, only the lateral sesamoid of thefirst toe is visualized. This could be correlated with any prior surgery.Only one confidently identified sesamoid on the x-ray study. Amputations of the second and third digits. The remaining bones havenormal signal. IMPRESSION: 1. No evidence of osteomyelitis. 2. Second and third digit amputations correlate with the x-rayappearance. 3. Nonspecific soft tissue findings. 4. Multifocal midfoot abnormalities. Referred By: Interpreted By: Walter Alvarez MD, 09/07/2022 8:58 PM Sofy Carrington MD MRI Final Resul t * (ABNORMAL) POCT glucose (09/07/2022 5:49 PM CDT) GLUCOSE POC 387(H) 70 - 99 mg/dL 09/07/2022 5:51 PM CDT [facility] 09/07/2022 5:49 PM CDT Arelis Bermeo MD POCT ORDERABLES - DEVICE Final R esult Performing Organization Address City/[facility] Co de Phone Number [facility] [address] [place] [address], [place] [phone] * (ABNORMAL) POCT glucose (09/07/2022 4:33 PM CDT) GLUCOSE POC 390(H) 70 - 99 mg/dL 09/07/2022 4:58 PM CDT [facility] 09/07/2022 4:33 PM CDT us Arelis Bermeo MD POCT ORDERABLES - DEVICE Final R esult [facility] [address] [place] [address], * TSH W/REFLEX (09/07/2022 12:55 PM CDT) TSH 0.603 0.358 - 3.74 uIU/ML 09/07/2022 1:45 PM CDT [facility] Comment: HIGH DOSES OF BIOTIN MAY INTERFERE WITH THIS TEST RESULT. CORRELATION TO CLINICAL HISTORY AND PRESENTATION RECOMMENDED. FREE T4 NOT INDICATED 09/07/2022 12:5 5 PM CDT Sofy Carrington MD LABORATORY Final Resul t Performing Organization Address [facility] Co de Phone Number [facility] [address] [place] [address], * (ABNORMAL) BASIC METABOLIC PANEL (09/07/2022 12:54 PM CDT) GLUCOSE 336(H) 70 - 99 MG/DL 09/07/2022 2:49 PM CDT [facility] BUN 27(H) 7 - 18 MG/DL 09/07/2022 2:49 PM CDT [facility] CREATININE S/P/B 1.45(H) 0.55 - 1.02 MG/DL 09/07/2022 2:49 PM CDT [facility] SODIUM S/P/B 132(L) 136 - 145 MMOL/L 09/07/2022 2:49 PM CDT [facility] POTASSIUM S/P/B 5.1 3.5 - 5.1 MMOL/L 09/07/2022 2:49 PM CDT [facility] CHLORIDE S/P/B 102 100 - 108 MMOL/L 09/07/2022 2:49 PM CDT [facility] CO2 21.7 21 - 32 MMOL/L 09/07/2022 2:49 PM CDT [facility] CALCIUM S/P/B 9.6 8.5 - 10.1 MG/DL 09/07/2022 2:49 PM CDT [facility] ANION GAP 8.3 5 - 15 MMOL/L 09/07/2022 2:49 PM CDT [facility] BUN CREATININE RATIO 18.6 6 - 26 09/07/2022 2:49 PM CDT [facility] GFR ESTIMATE 44(L) >90 ML/MIN/1.7 3 M2 09/07/2022 2:49 PM CDT [facility] Comment: NOTE: eGFR is not calculated for patients <18 years of age. This is an estimated GFR calculation using the new CKD EPI creatinine equation without race and so does not require a correction factor for race. This estimated GFR should not be used for calculating drug doses. 09/07/2022 12:5 4 PM CDT Sofy Carrington MD LABORATORY Final Resul t [facility] [address] [place] [id number], * XR FOOT LT 2V (09/07/2022 12:29 PM CDT) Anatomical Region Laterality Modality Foot Radiographic Shelli ging 09/07/2022 12:5 0 PM CDT Impressions 09/07/2022 12:51 PM CDT IMPRESSION: 1. ?? Prior second and third digit amputations. ??Soft tissue swelling without clear evidence of osteomyelitis. ??If there is significant clinical concern, further evaluation with MRI recommended. Referred By: ?? Interpreted By: Isaías Jones MD, 09/07/2022 12:50 PM Narrative 09/07/2022 12:51 PM CDT EXAMINATION: Left foot EXAM DATE: 09/07/2022 12:16 PM REASON FOR EXAM: ??foot pain, history of osteomyelitis ?? COMPARISON: 12/16/2021 TECHNIQUE: 3 views FINDINGS: Bone spur suggests chronic plantar fasciitis. Prior indication of the second digit at the MTP and the third digit at the proximal phalanx. No evidence of new erosive changes to indicate osteomyelitis. ??There is evidence of soft tissue swelling. ??No acute fracture or dislocation. Procedure Note Isaías Jones MD - 09/07/2022 EXAMINATION: Left foot EXAM DATE: 09/07/2022 12:16 PM REASON FOR EXAM: foot pain, history of osteomyelitis COMPARISON: 12/16/2021 TECHNIQUE: 3 views FINDINGS: Bone spur suggests chronic plantar fasciitis. Prior indication of the second digit at the MTP and the third digit at theproximal phalanx. No evidence of new erosive changes to indicate osteomyelitis. There isevidence of soft tissue swelling. No acute fracture or dislocation. IMPRESSION: 1. Prior second and third digit amputations. Soft tissue swellingwithout clear evidence of osteomyelitis. If there is significant clinicalconcern, further evaluation with MRI recommended. Referred By: Interpreted By: Isaías Jones MD, 09/07/2022 12:50 PM Sofy Carrington MD GENERAL IMAGING Final Resul t * (ABNORMAL) POCT glucose (09/07/2022 11:20 AM CDT) GLUCOSE POC 395(H) 70 - 99 mg/dL 09/07/2022 11:41 AM CDT [facility] 09/07/2022 11:2 0 AM CDT Arelis Bermeo MD POCT ORDERABLES - DEVICE Final R esult Performing Organization Address City/[facility]/ZIP Co de Phone Number [facility] [address] [place] [address], * (ABNORMAL) POCT glucose (09/07/2022 8:04 AM CDT) GLUCOSE POC 267(H) 70 - 99 mg/dL 09/07/2022 8:07 AM CDT [facility] 09/07/2022 8:04 AM CDT Arelis Bermeo MD POCT ORDERABLES - DEVICE Final R esult Performing Organization Address [facility] Co de Phone Number [facility] [address] [place] [address], * (ABNORMAL) CBC W/DIFF AUTOMATED (09/07/2022 4:40 AM CDT) WBC 15.9(H) 4.5 - 11.0 x10'3/uL 09/07/2022 5:07 AM CDT [facility] RBC 4.48 4.20 - 5.40 x10'6/uL 09/07/2022 5:07 AM CDT [facility] HGB 13.4 12.0 - 16.0 G/DL 09/07/2022 5:07 AM CDT [facility] HCT 39.8 38.0 - 48.0 % 09/07/2022 5:07 AM CDT [facility] MCV 88.8 81.0 - 99.0 FL 09/07/2022 5:07 AM CDT [facility] MCH 29.9 27.0 - 31.0 PG 09/07/2022 5:07 AM CDT [facility] MCHC 33.7 32.0 - 36.0 G/DL 09/07/2022 5:07 AM CDT [facility] RDW 12.4 11.5 - 14.5 % 09/07/2022 5:07 AM CDT [facility] PLT 328 130 - 400 x10'3/uL 09/07/2022 5:07 AM CDT [facility] MPV 11.4 9.3 - 12.2 FL 09/07/2022 5:07 AM CDT [facility] DIFFERENTIAL TYPE AUTOMATED DIFFERENTIAL 09/07/2022 5:28 AM CDT [facility] NEUTROPHILS % 88.4 % 09/07/2022 5:28 AM CDT [facility] LYMPHOCYTES % 9.5 % 09/07/2022 5:28 AM CDT [facility] MONOCYTES % 1.3 % 09/07/2022 5:28 AM CDT [facility] EOSINOPHILS 0.0 % 09/07/2022 5:28 AM CDT [facility] BASOPHILS 0.3 % 09/07/2022 5:28 AM CDT [facility] IMMATURE GRANS % 0.5 % 09/08/19 5:28 AM CDT [facility] ABS. NEUTROPHILS TOTAL 14.08(H) 1.80 - 7.70 x10'3/uL 09/07/2022 5:28 AM CDT [facility] ABS. LYMPHOCYTES 1.52 1.00 - 4.80 x10'3/uL 09/07/2022 5:28 AM CDT [facility] ABS. MONOCYTES 0.21(L) 0.24 - 0.86 x10'3/uL 09/07/2022 5:28 AM CDT [facility] ABS. EOSINOPHILS 0.00(L) 0.04 - 0.36 x10'3/uL 09/07/2022 5:28 AM CDT [facility] ABS. BASOPHILS 0.04 0.01 - 0.08 x10'3/uL 09/07/2022 5:28 AM CDT [facility] ABS. IMMATURE GRANULOCYTES 0.08 0.00 - 0.49 x10'3/uL 09/07/2022 5:28 AM CDT [facility] RBC MORPHOLOGY RBC MORPHOLOGY APPEARS NORMAL. SLIDE REVIEWED. 09/07/2022 5:28 AM CDT [facility] PLT EST. ADEQUATE 09/07/2022 5:28 AM CDT [facility] 09/07/2022 4:40 AM CDT Sofy Carrington MD LABORATORY Final Resul t [facility] [address] [place] [id number], * (ABNORMAL) BASIC METABOLIC PANEL (09/07/2022 4:40 AM CDT) GLUCOSE 315(H) 70 - 99 MG/DL 09/07/2022 5:35 AM CDT [facility] BUN 26(H) 7 - 18 MG/DL 09/07/2022 5:35 AM CDT [facility] CREATININE S/P/B 1.51(H) 0.55 - 1.02 MG/DL 09/07/2022 5:35 AM CDT [facility] SODIUM S/P/B 132(L) 136 - 145 MMOL/L 09/07/2022 5:35 AM CDT [facility] POTASSIUM S/P/B 5.4(H) 3.5 - 5.1 MMOL/L 09/07/2022 5:35 AM CDT [facility] CHLORIDE S/P/B 102 100 - 108 MMOL/L 09/07/2022 5:35 AM CDT [facility] CO2 26.2 21 - 32 MMOL/L 09/07/2022 5:35 AM CDT [facility] CALCIUM S/P/B 9.8 8.5 - 10.1 MG/DL 09/07/2022 5:35 AM CDT [facility] ANION GAP 3.8(L) 5 - 15 MMOL/L 09/07/2022 5:35 AM CDT [facility] BUN CREATININE RATIO 17.2 6 - 26 09/07/2022 5:35 AM CDT [facility] GFR ESTIMATE 42(L) >90 ML/MIN/1.7 3 M2 09/07/2022 5:35 AM CDT [facility] Comment: NOTE: eGFR is not calculated for patients <18 years of age. This is an estimated GFR calculation using the new CKD EPI creatinine equation without race and so does not require a correction factor for race. This estimated GFR should not be used for calculating drug doses. 09/07/2022 4:40 AM CDT Sofy Carrington MD LABORATORY Final Resul t [facility] [address] [place] [address], [place] [phone] * (ABNORMAL) POCT glucose (09/07/2022 2:15 AM CDT) GLUCOSE POC 259(H) 70 - 99 mg/dL 09/07/2022 2:16 AM CDT [facility] 09/07/2022 2:15 AM CDT Arelis Bermeo MD POCT ORDERABLES - DEVICE Final R esult [facility] [address] [place] [address], [place] [phone] * (ABNORMAL) POCT glucose (09/07/2022 12:20 AM CDT) GLUCOSE POC 374(H) 70 - 99 mg/dL 09/07/2022 12:21 AM CDT [facility] 09/07/2022 12:2 0 AM CDT us Arelis Bermeo MD POCT ORDERABLES - DEVICE Final R esult Performing Organization Address City/[facility]/ZIP Co de Phone Number [facility] [address] [place] [address], [place] [phone] * (ABNORMAL) POCT glucose (09/06/2022 8:12 PM CDT) GLUCOSE POC 396(H) 70 - 99 mg/dL 09/06/2022 8:47 PM CDT [facility] 09/06/2022 8:12 PM CDT us Arelis Bermeo MD POCT ORDERABLES - DEVICE Final R esult Performing Organization Address City/[facility]/ZIP Co de Phone Number [facility] [address] [place] [address], [place] [phone] * (ABNORMAL) POCT glucose (09/06/2022 5:16 PM CDT) GLUCOSE POC 330(H) 70 - 99 mg/dL 09/06/2022 5:17 PM CDT [facility] 09/06/2022 5:16 PM CDT us Arelis Bermeo MD POCT ORDERABLES - DEVICE Final R esult Performing Organization Address City/[facility]/ZIP Co de Phone Number [facility] [address] [place] [address], [place] [phone] * (ABNORMAL) POCT glucose (09/06/2022 1:29 PM CDT) GLUCOSE POC 139(H) 70 - 99 mg/dL 09/06/2022 1:34 PM CDT [facility] 09/06/2022 1:29 PM CDT us Kirit Yoon MD POCT ORDERABLES - DEVICE Final Result Performing Organization Address City/[facility] Co de Phone Number [facility] [address] [place] [address], [place] [phone] * CULTURE, ANAEROBIC (09/06/2022 1:00 PM CDT) SPEC DESCRIPTION TOE,RIGHT 09/06/2022 1:30 PM CDT [facility] SPECIAL REQUESTS R 2ND TOE 09/06/2022 1:30 PM CDT [facility] GRAM STAIN RESULT NO WHITE BLOOD CELLS SEEN 09/07/2022 10:45 AM CDT [facility] GRAM STAIN RESULT RARE RED BLOOD CELLS SEEN 09/07/2022 10:45 AM CDT [facility] GRAM STAIN RESULT NO ORGANISMS SEEN 09/07/2022 10:45 AM CDT [facility] CULTURE RESULT NO GROWTH 5 DAYS 09/11/2022 8:27 AM CDT [facility] CULTURE RESULT NOTE: ANAEROBIC CULTURES ARE ROUTINELY SCREENED FOR BOTH AEROBIC AND ANAEROBIC ORGANISMS. 09/11/2022 8:27 AM CDT [facility] WOUND STRUCTURE OF TOE OF RIGHT FOOT / Unknown 09/06/2022 1:00 PM CDT Hubert FERNANDO MICROBIOLOGY - GENERAL OR DERABLES Final Result Performing Organization Address [facility]/ZIP Co de Phone Number [facility] [address] [place] [address], [place] [phone] * CULTURE, ANAEROBIC (09/06/2022 12:59 PM CDT) SPEC DESCRIPTION TOE,RIGHT 09/06/2022 1:34 PM CDT [facility] SPECIAL REQUESTS R FIRST TOE 09/06/2022 1:34 PM CDT [facility] GRAM STAIN RESULT NO WHITE BLOOD CELLS SEEN 09/07/2022 10:44 AM CDT [facility] GRAM STAIN RESULT RARE RED BLOOD CELLS SEEN 09/07/2022 10:44 AM CDT [facility] GRAM STAIN RESULT NO ORGANISMS SEEN 09/07/2022 10:44 AM CDT [facility] CULTURE RESULT NO GROWTH 5 DAYS 09/11/2022 8:26 AM CDT [facility] CULTURE RESULT NOTE: ANAEROBIC CULTURES ARE ROUTINELY SCREENED FOR BOTH AEROBIC AND ANAEROBIC ORGANISMS. 09/11/2022 8:26 AM CDT [facility] WOUND STRUCTURE OF TOE OF RIGHT FOOT / Unknown 09/06/2022 12:59 PM CDT Hubert Cummings DPM MICROBIOLOGY - GENERAL OR DERABLES Final Result [facility] [address] [place] [address], * (ABNORMAL) POCT glucose (09/06/2022 12:09 PM CDT) GLUCOSE POC 124(H) 70 - 99 mg/dL 09/07/2022 3:04 PM CDT [facility] 09/06/2022 12:0 9 PM CDT Arelis Bermeo MD POCT ORDERABLES - DEVICE Final R esult [facility] [address] [place] [address], * (ABNORMAL) POCT glucose (09/06/2022 6:23 AM CDT) GLUCOSE POC 180(H) 70 - 99 mg/dL 09/06/2022 6:25 AM CDT [facility] 09/06/2022 6:23 AM CDT Kirit Yoon MD POCT ORDERABLES - DEVICE Final Result [facility] [address] [place] [address], * (ABNORMAL) CBC W/DIFF AUTOMATED (09/06/2022 4:54 AM CDT) WBC 7.6 4.5 - 11.0 x10'3/uL 09/06/2022 5:37 AM CDT [facility] RBC 3.58(L) 4.20 - 5.40 x10'6/uL 09/06/2022 5:37 AM CDT [facility] HGB 10.8(L) 12.0 - 16.0 G/DL 09/06/2022 5:37 AM CDT [facility] HCT 32.7(L) 38.0 - 48.0 % 09/06/2022 5:37 AM CDT [facility] MCV 91.3 81.0 - 99.0 FL 09/06/2022 5:37 AM CDT [facility] MCH 30.2 27.0 - 31.0 PG 09/06/2022 5:37 AM CDT [facility] MCHC 33.0 32.0 - 36.0 G/DL 09/06/2022 5:37 AM CDT [facility] RDW 12.8 11.5 - 14.5 % 09/06/2022 5:37 AM CDT [facility] PLT 246 130 - 400 x10'3/uL 09/06/2022 5:37 AM CDT [facility] MPV 11.0 9.3 - 12.2 FL 09/06/2022 5:37 AM CDT [facility] DIFFERENTIAL TYPE AUTOMATED DIFFERENTIAL 09/06/2022 5:37 AM CDT [facility] NEUTROPHILS % 45.4 % 09/06/2022 5:37 AM CDT [facility] LYMPHOCYTES % 47.4 % 09/06/2022 5:37 AM CDT [facility] MONOCYTES % 5.4 % 09/06/2022 5:37 AM CDT [facility] EOSINOPHILS 1.2 % 09/06/2022 5:37 AM CDT [facility] BASOPHILS 0.5 % 09/06/2022 5:37 AM CDT [facility] IMMATURE GRANS % 0.1 % 09/07/19 5:37 AM CDT [facility] ABS. NEUTROPHILS TOTAL 3.44 1.80 - 7.70 x10'3/uL 09/06/2022 5:37 AM CDT [facility] ABS. LYMPHOCYTES 3.59 1.00 - 4.80 x10'3/uL 09/06/2022 5:37 AM CDT [facility] ABS. MONOCYTES 0.41 0.24 - 0.86 x10'3/uL 09/06/2022 5:37 AM CDT [facility] ABS. EOSINOPHILS 0.09 0.04 - 0.36 x10'3/uL 09/06/2022 5:37 AM CDT [facility] ABS. BASOPHILS 0.04 0.01 - 0.08 x10'3/uL 09/06/2022 5:37 AM CDT [facility] ABS. IMMATURE GRANULOCYTES 0.01 0.00 - 0.49 x10'3/uL 09/06/2022 5:37 AM CDT [facility] 09/06/2022 4:54 AM CDT Sofy Carrington MD LABORATORY Final Resul t [facility] [address] [place] [address], * (ABNORMAL) BASIC METABOLIC PANEL (09/06/2022 4:54 AM CDT) GLUCOSE 185(H) 70 - 99 MG/DL 09/06/2022 5:26 AM CDT [facility] BUN 22(H) 7 - 18 MG/DL 09/06/2022 5:26 AM CDT [facility] CREATININE S/P/B 1.17(H) 0.55 - 1.02 MG/DL 09/06/2022 5:26 AM CDT [facility] SODIUM S/P/B 138 136 - 145 MMOL/L 09/06/2022 5:26 AM CDT [facility] POTASSIUM S/P/B 4.0 3.5 - 5.1 MMOL/L 09/06/2022 5:26 AM CDT [facility] CHLORIDE S/P/B 107 100 - 108 MMOL/L 09/06/2022 5:26 AM CDT [facility] CO2 27.5 21 - 32 MMOL/L 09/06/2022 5:26 AM CDT [facility] CALCIUM S/P/B 8.6 8.5 - 10.1 MG/DL 09/06/2022 5:26 AM CDT [facility] ANION GAP 3.5(L) 5 - 15 MMOL/L 09/06/2022 5:26 AM CDT [facility] BUN CREATININE RATIO 18.8 6 - 26 09/06/2022 5:26 AM CDT [facility] GFR ESTIMATE 56(L) >90 ML/MIN/1.7 3 M2 09/06/2022 5:26 AM CDT [facility] Comment: NOTE: eGFR is not calculated for patients <18 years of age. This is an estimated GFR calculation using the new CKD EPI creatinine equation without race and so does not require a correction factor for race. This estimated GFR should not be used for calculating drug doses. 09/06/2022 4:54 AM CDT us Sofy Carrington MD LABORATORY Final Resul t [facility] [address] [place] [address], [place] [phone] * (ABNORMAL) POCT glucose (09/06/2022 12:13 AM CDT) [facility] GLUCOSE POC 246(H) 70 - 99 mg/dL 09/06/2022 12:16 AM CDT [facility] 09/06/2022 12:1 3 AM CDT us Kirit Yoon MD POCT ORDERABLES - DEVICE Final Result [facility] [address] [facility] [place] [address], * Pathology (09/06/2022 12:00 AM CDT) [facility] COPATH REPORT ?[facility] ? [address] ? [place], [place] ??[address] ? [id number] ? Department of Pathology ? Pathology Report ? SURGICAL FINAL REPORT Patient Name: LENA YOUNGBLOOD ? : 1970 (Age: 52) ? Location: [address] Gender: F ?Collected Date: 09/06/2022 Med Rec #: [id number] ?Date Received: 09/06/2022 Date Reported: 09/08/2022 Provider: DIOR MALDONADO ENGINEERING TECH ?KIRIT YOON MD ?HUBERT CUMMINGS DPM Specimen(s) A: Biopsy of right first toe B: Biopsy of right second toe Final Pathologic Diagnosis A. ??BONE, RIGHT FIRST TOE, BIOPSY: ? - BENIGN BONE TISSUE ? - NO EVIDENCE OF OSTEOMYELITIS B. ??BONE, RIGHT SECOND TOE, BIOPSY: ? - BENIGN CORTICAL BONE AND CARTILAGE COMMENT Specimen B only shows cortical bone and cartilage without underlying medullary bone. ??Clinical correlation and follow-up are recommended. Electronically Signed Out ? JP FELIZ MD Pathologist CSM:lc Microscopic Description: Microscopic examination supports the above diagnosis. Clinical History Osteomyelitis Gross Description Received are two formalin-filled containers both labeled with the patient's name (Lena Youngblood), date of (1970). A. ??Additionally labeled biopsy of right first toe, collection time 09/07/2022 at 1259. ??The specimen consists of a yellow-white to red-mohan core bone measuring 0.4 cm in length with a diameter up to 0.4 cm. ??The specimen is submitted in toto in cassette A1 following decalcification. B. ??Additionally labeled biopsy of right second toe, collection time 09/07/2022 at 1300. ??The specimen consists of a yellow-mohan to red-white core bone measuring 0.6 cm in length with a diameter up to 0.3 cm. ??The specimen is submitted in toto in cassette B1 following decalcification. ?? : Billing Fee Code(s): 22516(2), 24396(2) [facility] WOUND STRUCTURE OF TOE OF RIGHT FOOT / Unknown 09/06/2022 12:59 PM CDT Specimen from wound (specimen) STRUCTURE OF TOE OF RIGHT FOOT / Unknown 09/06/2022 1:00 PM CDT us Hubert FERNANDOM PATHOLOGY/CYTOLOGY ORDERA BLES Final Result Performing Organization Address City/[facility] Co de Phone Number [facility] [address] [place] [address], [place] [phone] * (ABNORMAL) POCT glucose (09/05/2022 7:29 PM CDT) GLUCOSE POC 214(H) 70 - 99 mg/dL 09/05/2022 7:33 PM CDT [facility] 09/05/2022 7:29 PM CDT us Kirit Yoon MD POCT ORDERABLES - DEVICE Final Result [facility] [address] [place] [address], [place] [phone] * (ABNORMAL) POCT glucose (09/05/2022 4:54 PM CDT) GLUCOSE POC 106(H) 70 - 99 mg/dL 09/05/2022 4:58 PM CDT [facility] 09/05/2022 4:54 PM CDT Kirit Yoon MD POCT ORDERABLES - DEVICE Final Result Performing Organization Address City/[facility]/ZIP Co de Phone Number [facility] [address] [place] [address], [place] [phone] * (ABNORMAL) POCT glucose (09/05/2022 12:17 PM CDT) Pathologist [facility] GLUCOSE POC 261(H) 70 - 99 mg/dL 09/05/2022 12:19 PM CDT [facility] 09/05/2022 12:1 7 PM CDT Kirit Yoon MD POCT ORDERABLES - DEVICE Final Result Performing Organization Address [facility] Co de Phone Number [facility] [address] [place] [address], * LIPASE (09/05/2022 9:56 AM CDT) Pathologist [facility] LIPASE 63 13 - 75 UNITS/L 09/05/2022 10:25 AM CDT [facility] 09/05/2022 9:56 AM CDT Sofy Carrington MD LABORATORY Final Resul t Performing Organization Address City/[facility]/ZIP Co de Phone Number [facility] [address] [place] [address], [place] [phone] * TROPONIN, QUANT (09/05/2022 9:56 AM CDT) Pathologist [facility] TROPONIN I HIGH SENSITIVITY 6 <54 ng/L 09/05/2022 10:42 AM CDT [facility] Comment: HIGH DOSES OF BIOTIN, TROPONIN-SPECIFIC AUTOANTIBODIES, AND ANTIBODY THERAPY CONTAINING HAMA MAY INTERFERE WITH THIS TEST RESULT. CORRELATION TO CLINICAL HISTORY AND PRESENTATION RECOMMENDED. 09/05/2022 9:56 AM CDT Sofy Carrington MD LABORATORY Final Resul t [facility] [address] [place] [address], * (ABNORMAL) BASIC METABOLIC PANEL (09/05/2022 9:56 AM CDT) GLUCOSE 200(H) 70 - 99 MG/DL 09/05/2022 10:51 AM CDT [facility] BUN 26(H) 7 - 18 MG/DL 09/05/2022 10:51 AM CDT [facility] CREATININE S/P/B 1.41(H) 0.55 - 1.02 MG/DL 09/05/2022 10:51 AM CDT [facility] SODIUM S/P/B 131(L) 136 - 145 MMOL/L 09/05/2022 10:51 AM CDT [facility] POTASSIUM S/P/B 4.9 3.5 - 5.1 MMOL/L 09/05/2022 10:51 AM CDT [facility] Comment:SLIGHT HEMOLYSIS, RE SULT MAY BE AFFECTED. CHLORIDE S/P/B 104 100 - 108 MMOL/L 09/05/2022 10:51 AM CDT [facility] CO2 23.2 21 - 32 MMOL/L 09/05/2022 10:51 AM CDT [facility] CALCIUM S/P/B 9.0 8.5 - 10.1 MG/DL 09/05/2022 10:51 AM CDT [facility] ANION GAP 3.8(L) 5 - 15 MMOL/L 09/05/2022 10:51 AM CDT [facility] BUN CREATININE RATIO 18.4 6 - 26 09/05/2022 10:51 AM CDT [facility] GFR ESTIMATE 45(L) >90 ML/MIN/1.7 3 M2 09/05/2022 10:51 AM CDT [facility] Comment: NOTE: eGFR is not calculated for patients <18 years of age. This is an estimated GFR calculation using the new CKD EPI creatinine equation without race and so does not require a correction factor for race. This estimated GFR should not be used for calculating drug doses. 09/05/2022 9:56 AM CDT Nick Hernandes MD LABORATORY Final Result [facility] [address] [place] [id number], * (ABNORMAL) CBC W/DIFF AUTOMATED (09/05/2022 9:56 AM CDT) WBC 10.9 4.5 - 11.0 x10'3/uL 09/05/2022 10:17 AM CDT [facility] RBC 3.73(L) 4.20 - 5.40 x10'6/uL 09/05/2022 10:17 AM CDT [facility] HGB 11.3(L) 12.0 - 16.0 G/DL 09/05/2022 10:17 AM CDT [facility] HCT 35.5(L) 38.0 - 48.0 % 09/05/2022 10:17 AM CDT [facility] MCV 95.2 81.0 - 99.0 FL 09/05/2022 10:17 AM CDT [facility] MCH 30.3 27.0 - 31.0 PG 09/05/2022 10:17 AM CDT [facility] MCHC 31.8(L) 32.0 - 36.0 G/DL 09/05/2022 10:17 AM CDT [facility] RDW 13.1 11.5 - 14.5 % 09/05/2022 10:17 AM CDT [facility] PLT 285 130 - 400 x10'3/uL 09/05/2022 10:17 AM CDT [facility] MPV 11.3 9.3 - 12.2 FL 09/05/2022 10:17 AM CDT [facility] DIFFERENTIAL TYPE AUTOMATED DIFFERENTIAL 09/05/2022 10:17 AM T [facility] NEUTROPHILS % 69.9 % 09/05/2022 10:17 AM CDT [facility] LYMPHOCYTES % 26.0 % 09/05/2022 10:17 AM CDT [facility] MONOCYTES % 2.4 % 09/05/2022 10:17 AM CDT [facility] EOSINOPHILS 0.8 % 09/05/2022 10:17 AM T [facility] BASOPHILS 0.5 % 09/05/2022 10:17 AM CDT [facility] IMMATURE GRANS % 0.4 % 09/06/19 10:17 AM T [facility] ABS. NEUTROPHILS TOTAL 7.63 1.80 - 7.70 x10'3/uL 09/05/2022 10:17 AM CDT [facility] ABS. LYMPHOCYTES 2.84 1.00 - 4.80 x10'3/uL 09/05/2022 10:17 AM CDT [facility] ABS. MONOCYTES 0.26 0.24 - 0.86 x10'3/uL 09/05/2022 10:17 AM CDT [facility]. EOSINOPHILS 0.09 0.04 - 0.36 x10'3/uL 09/05/2022 10:17 AM CDT [facility] ABS. BASOPHILS 0.05 0.01 - 0.08 x10'3/uL 09/05/2022 10:17 AM CDT [facility] ABS. IMMATURE GRANULOCYTES 0.04 0.00 - 0.49 x10'3/uL 09/05/2022 10:17 AM CDT [facility] 09/05/2022 9:56 AM CDT us Nick Hernandes MD LABORATORY Final Result Performing Organization Address City/State/[facility] Co de Phone Number [facility] [address] [id number], * ECG 12 lead (09/05/2022 6:59 AM CDT) 09/05/2022 6:[address] [facility] [place] [facility] ([facility]) [facility] - 09/05/2022 8:31 AM CDT ?[facility] ? [address] [facility] [place] ? Test Date: ?2022-09-05 Pat Name: ? LENA JALLOHRY ?Department: ?? 40 ? Room: ? H52123 Gender: ? Female ? 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 : ?1970 ? Requested By: KIRIT YOON Order Number: [id number] ? Reading MD: ?? Marvin Mckeon ? Measurements Intervals ?[place] ? Rate: ? 96 ? P: ?44 AR: ? 181 ?QRS: ?16 QRSD: ? 86 ? T: ?45 QT: ? 349 ? QTc: ?441 ? Interpretive Statements SINUS RHYTHM NONSPECIFIC T-WAVE ABNORMALITY Compared to ECG 01/08/2022 18:02:44 Sinus tachycardia no longer present T-wave abnormality still present Procedure Note Marvin Mckeon MD - 09/05/[address] Test Date: 2022-09-05 Pat Name: LENA YOUNGBLOOD Department: 40 Room: 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: : 1970 Requested By: KIRIT YOON Order Number: [id number] Reading MD: Marvin Mckeon Measurements Intervals [place] Rate: 96 P: 44 AR: 181 QRS: 16 QRSD: 86 T: 45 QT: 349 QTc: 441 Interpretive Statements SINUS RHYTHM NONSPECIFIC T-WAVE ABNORMALITY Compared to ECG 01/08/2022 18:02:44 Sinus tachycardia no longer present T-wave abnormality still present Kirit Yoon MD ECG ORDERABLES Final Re sult Performing Organization Address City/[facility]/ZIP Co de Phone Number [facility] ([facility]) [facility] * (ABNORMAL) POCT glucose (09/05/2022 6:05 AM CDT) GLUCOSE POC 193(H) 70 - 99 mg/dL 09/05/2022 6:19 AM CDT [facility] 09/05/2022 6:05 AM CDT Kirit Yoon MD POCT ORDERABLES - DEVICE Final Result [facility] [address] [place] [address], [place] [phone] * (ABNORMAL) POCT glucose (09/04/2022 8:02 PM CDT) GLUCOSE POC 218(H) 70 - 99 mg/dL 09/04/2022 8:13 PM CDT [facility] 09/04/2022 8:02 PM CDT us Kirit Yoon MD POCT ORDERABLES - DEVICE Final Result Performing Organization Address [facility] Co de Phone Number [facility] [address] [place] [phone], [place] [phone] * (ABNORMAL) POCT glucose (09/04/2022 5:27 PM CDT) GLUCOSE POC 126(H) 70 - 99 mg/dL 09/04/2022 5:45 PM CDT [facility] 09/04/2022 5:27 PM CDT us Kirit Yoon MD POCT ORDERABLES - DEVICE Final Result Performing Organization Address [facility] Co de Phone Number [facility] [address] [place] [address], [place] [phone] * MRI FOOT RT WO CON (09/04/2022 5:10 PM CDT) Anatomical Region Laterality Modality Foot Magnetic Resonan ce 09/04/2022 5:43 PM CDT Impressions 09/04/2022 5:49 PM CDT IMPRESSION: 1. There is very mild bone marrow edema within the distal phalanges of the first and second toes. If there are adjacent soft tissue wounds, this is suggestive of mild osteomyelitis. 2. No drainable fluid collection or abscess. 3. 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 Ordered By: SOFY CARRINGTON Interpreted By: Oj Ward DO, 09/04/2022 5:43 PM Narrative 09/04/2022 5:49 PM CDT EXAMINATION: MRI FOOT RT WO CON HISTORY: First, second, and third toe pain. Concern for osteomyelitis. COMPARISON: X-ray right foot 09/03/2022. MRI right foot 12/17/2021. TECHNIQUE: Multisequence and multiplanar MR images of the right foot without the use of intravenous contrast. FINDINGS: There is very mild bone marrow edema within the distal phalanges of the first and second toes. If there are adjacent soft tissue wounds, this is suggestive of mild osteomyelitis. No drainable fluid collection or abscess. Alignment is overall maintained. No evidence of acute fracture or dislocation. There is an old healed fracture of the fifth metatarsal. There is prominent arthritic change with associated bone marrow edema in the midfoot, most pronounced medially. No acute appearing muscular abnormalities. No acute tendinous or ligamentous abnormalities. ?? Procedure Note Oj Ward DO - 09/04/2022 EXAMINATION: MRI FOOT RT WO CON HISTORY: First, second, and third toe pain. Concern for osteomyelitis. COMPARISON: X-ray right foot 09/03/2022. MRI right foot 12/17/2021. TECHNIQUE: Multisequence and multiplanar MR images of the right foot without the useof intravenous contrast. FINDINGS: There is very mild bone marrow edema within the distal phalanges of thefirst and second toes. If there are adjacent soft tissue wounds, this issuggestive of mild osteomyelitis. No drainable fluid collection orabscess. Alignment is overall maintained. No evidence of acute fracture ordislocation. There is an old healed fracture of the fifth metatarsal.There is prominent arthritic change with associated bone marrow edema inthe midfoot, most pronounced medially. No acute appearing muscular abnormalities. No acute tendinous orligamentous abnormalities. IMPRESSION: 1. There is very mild bone marrow edema within the distal phalanges of thefirst and second toes. If there are adjacent soft tissue wounds, this issuggestive of mild osteomyelitis. 2. No drainable fluid collection or abscess. 3. There is significant arthritic change with associated bone marrow edemain the midfoot, most pronounced medially. Ordered By: SOFY CARRINGTON Interpreted By: Oj Ward DO, 09/04/2022 5:43 PM us Sofy Carrington MD MRI Final Resul t * (ABNORMAL) POCT glucose (09/04/2022 12:02 PM CDT) GLUCOSE POC 164(H) 70 - 99 mg/dL 09/04/2022 12:03 PM CDT [facility] 09/04/2022 12:0 2 PM CDT Kirit Yoon MD POCT ORDERABLES - DEVICE Final Result [facility] [address] [place] [address], [place] [phone] * (ABNORMAL) BASIC METABOLIC PANEL (09/04/2022 8:20 AM CDT) GLUCOSE 162(H) 70 - 99 MG/DL 09/04/2022 9:10 AM CDT [facility] BUN 20(H) 7 - 18 MG/DL 09/04/2022 9:10 AM CDT [facility] CREATININE S/P/B 1.09(H) 0.55 - 1.02 MG/DL 09/04/2022 9:10 AM CDT [facility] SODIUM S/P/B 138 136 - 145 MMOL/L 09/04/2022 9:10 AM CDT [facility] POTASSIUM S/P/B 3.7 3.5 - 5.1 MMOL/L 09/04/2022 9:10 AM CDT [facility] CHLORIDE S/P/B 106 100 - 108 MMOL/L 09/04/2022 9:10 AM CDT [facility] CO2 28.1 21 - 32 MMOL/L 09/04/2022 9:10 AM CDT [facility] CALCIUM S/P/B 8.8 8.5 - 10.1 MG/DL 09/04/2022 9:10 AM CDT [facility] ANION GAP 3.9(L) 5 - 15 MMOL/L 09/04/2022 9:10 AM CDT [facility] BUN CREATININE RATIO 18.3 6 - 26 09/04/2022 9:10 AM CDT [facility] GFR ESTIMATE 62(L) >90 ML/MIN/1.7 3 M2 09/04/2022 9:10 AM CDT [facility] Comment: NOTE: eGFR is not calculated for patients <18 years of age. This is an estimated GFR calculation using the new CKD EPI creatinine equation without race and so does not require a correction factor for race. This estimated GFR should not be used for calculating drug doses. 09/04/2022 8:20 AM CDT us Nick Hernandes MD LABORATORY Final Result [facility] [address] [place] [address], [place] [phone] * (ABNORMAL) CBC W/DIFF AUTOMATED (09/04/2022 8:20 AM CDT) WBC 8.7 4.5 - 11.0 x10'3/uL 09/04/2022 8:40 AM CDT [facility] RBC 3.84(L) 4.20 - 5.40 x10'6/uL 09/04/2022 8:40 AM CDT [facility] HGB 11.5(L) 12.0 - 16.0 G/DL 09/04/2022 8:40 AM CDT [facility] HCT 34.5(L) 38.0 - 48.0 % 09/04/2022 8:40 AM CDT [facility] MCV 89.8 81.0 - 99.0 FL 09/04/2022 8:40 AM CDT [facility] MCH 29.9 27.0 - 31.0 PG 09/04/2022 8:40 AM CDT [facility] MCHC 33.3 32.0 - 36.0 G/DL 09/04/2022 8:40 AM CDT [facility] RDW 13.0 11.5 - 14.5 % 09/04/2022 8:40 AM CDT [facility] PLT 267 130 - 400 x10'3/uL 09/04/2022 8:40 AM CDT [facility] MPV 11.3 9.3 - 12.2 FL 09/04/2022 8:40 AM CDT [facility] DIFFERENTIAL TYPE AUTOMATED DIFFERENTIAL 09/04/2022 8:40 AM CDT [facility] NEUTROPHILS % 50.5 % 09/04/2022 8:40 AM CDT [facility] LYMPHOCYTES % 42.8 % 09/04/2022 8:40 AM CDT [facility] MONOCYTES % 4.8 % 09/04/2022 8:40 AM CDT [facility] EOSINOPHILS 1.1 % 09/04/2022 8:40 AM CDT [facility] BASOPHILS 0.6 % 09/04/2022 8:40 AM CDT [facility] IMMATURE GRANS % 0.2 % 09/05/19 8:40 AM CDT [facility] ABS. NEUTROPHILS TOTAL 4.39 1.80 - 7.70 x10'3/uL 09/04/2022 8:40 AM CDT [facility] ABS. LYMPHOCYTES 3.72 1.00 - 4.80 x10'3/uL 09/04/2022 8:40 AM CDT [facility] ABS. MONOCYTES 0.42 0.24 - 0.86 x10'3/uL 09/04/2022 8:40 AM CDT [facility] ABS. EOSINOPHILS 0.10 0.04 - 0.36 x10'3/uL 09/04/2022 8:40 AM CDT [facility] ABS. BASOPHILS 0.05 0.01 - 0.08 x10'3/uL 09/04/2022 8:40 AM CDT [facility] ABS. IMMATURE GRANULOCYTES 0.02 0.00 - 0.49 x10'3/uL 09/04/2022 8:40 AM CDT [facility] 09/04/2022 8:20 AM CDT Nick Hernandes MD LABORATORY Final Result [facility] [address] [place] [id number], * (ABNORMAL) POCT glucose (09/03/2022 9:14 PM CDT) [facility] Signature GLUCOSE POC 210(H) 70 - 99 mg/dL 09/03/2022 9:15 PM CDT [facility] 09/03/2022 9:14 PM CDT Kirit Yoon MD POCT ORDERABLES - DEVICE Final Result [facility] [address] [place] [address], [place] [phone] * LACTIC ACID (09/03/2022 7:48 PM CDT) LACTIC ACID VENOUS 1.5 0.4 - 2.0 MMOL/L 09/03/2022 8:17 PM CDT [facility] 09/03/2022 7:48 PM CDT Dior Maldonado [facility] LABORATORY Final Resul t [facility] [address] [place] [address], [place] [phone] * CULTURE, BACTERIA, BLOOD (09/03/2022 7:48 PM CDT) Pathologist [facility] SPEC DESCRIPTION BLOOD 09/03/2022 1:30 PM CDT [facility] SPECIAL REQUESTS NO SPECIAL REQUEST 09/03/2022 1:30 PM CDT [facility] CULTURE RESULT NO GROWTH 5 DAYS 09/08/2022 8:32 AM CDT [facility] BLOOD SPECIMEN OBTAINED FOR BLOOD CULTURE / Unknown 09/03/2022 7:48 PM CDT 09/03/2022 7:55 PM CDT Dior Maldonado [facility] MICROBIOLOGY - GENERAL ORDE RABLES Final Result [facility] [address] [place] [address], [place] [phone] * CULTURE, BACTERIA, BLOOD (09/03/2022 7:36 PM CDT) SPEC DESCRIPTION BLOOD 09/03/2022 1:30 PM CDT [facility] SPECIAL REQUESTS NO SPECIAL REQUEST 09/03/2022 1:30 PM CDT [facility] CULTURE RESULT NO GROWTH 5 DAYS 09/08/2022 8:32 AM CDT [facility] BLOOD SPECIMEN OBTAINED FOR BLOOD CULTURE / Unknown 09/03/2022 7:36 PM CDT 09/03/2022 7:56 PM CDT Dior Maldonado ENGINEERING TECH [facility]Y [facility] Final Result [facility] [address] [place] [address], [place] [phone] * (ABNORMAL) C-REACTIVE PROTEIN (09/03/2022 2:54 PM CDT) C-REACTIVE PROTEIN 1.99(H) <0.29 mg/dL 09/03/2022 3:44 PM CDT [facility] 09/03/2022 2:54 PM CDT Dior Maldonado [facility]ORAT[facility] Final Resul t [facility] [address] [place] [address], [place] [phone] * (ABNORMAL) COMPREHENSIVE METABOLIC PANEL (09/03/2022 2:54 PM CDT) GLUCOSE 230(H) 70 - 99 MG/DL 09/03/2022 3:44 PM CDT [facility] BUN 18 7 - 18 MG/DL 09/03/2022 3:44 PM CDT [facility] CREATININE S/P/B 1.18(H) 0.55 - 1.02 MG/DL 09/03/2022 3:44 PM CDT [facility] SODIUM S/P/B 135(L) 136 - 145 MMOL/L 09/03/2022 3:44 PM CDT [facility] POTASSIUM S/P/B 3.9 3.5 - 5.1 MMOL/L 09/03/2022 3:44 PM CDT [facility] Comment:SLIGHT HEMOLYSIS, RE SULT MAY BE AFFECTED. CHLORIDE S/P/B 104 100 - 108 MMOL/L 09/03/2022 3:44 PM CDT [facility] CO2 28.6 21 - 32 MMOL/L 09/03/2022 3:44 PM CDT [facility] CALCIUM S/P/B 9.3 8.5 - 10.1 MG/DL 09/03/2022 3:44 PM CDT [facility] BILIRUBIN TOTAL S/P/B 0.3 0.2 - 1.2 MG/DL 09/03/2022 3:44 PM CDT [facility] Comment: THIS ASSAY IS NOT RECOMMENDED FOR PATIENTS UNDERGOING TREATMENT WITH ELTROMBOPAG DUE TO THE POTENTIAL FOR FALSELY ELEVATED RESULTS. TOTAL PROTEIN S/P/B 8.8(H) 6.4 - 8.2 G/DL 09/03/2022 3:44 PM CDT [facility] ALBUMIN S/P/B 3.4 3.4 - 5.0 G/DL 09/03/2022 3:44 PM CDT [facility] AST 21 15 - 37 U/L 09/03/2022 3:44 PM CDT [facility] Comment:SLIGHT HEMOLYSIS, RE SULT MAY BE AFFECTED. ALT 23 14 - 55 U/L 09/03/2022 3:44 PM CDT [facility] ALKALINE PHOSPHATASE S/P/B 134 50 - 136 U/L 09/03/2022 3:44 PM CDT [facility] ANION GAP 2.4(L) 5 - 15 MMOL/L 09/03/2022 3:44 PM CDT [facility] BUN CREATININE RATIO 15.3 6 - 26 09/03/2022 3:44 PM CDT [facility] A/G RATIO 0.6(L) 1.0 - 2.0 RATIO 09/03/2022 3:44 PM CDT [facility] GFR ESTIMATE 56(L) >90 ML/MIN/1.7 3 M2 09/03/2022 3:44 PM CDT [facility] Comment: NOTE: eGFR is not calculated for patients <18 years of age. This is an estimated GFR calculation using the new CKD EPI creatinine equation without race and so does not require a correction factor for race. This estimated GFR should not be used for calculating drug doses. 09/03/2022 2:54 PM CDT Dior Maldonado ENGINEERING TECH LABORATORY Final Resul t [facility] [address] [place] [address], * (ABNORMAL) CBC W/DIFF AUTOMATED (09/03/2022 2:54 PM CDT) WBC 10.4 4.5 - 11.0 x10'3/uL 09/03/2022 3:18 PM CDT [facility] RBC 4.08(L) 4.20 - 5.40 x10'6/uL 09/03/2022 3:18 PM CDT [facility] HGB 12.3 12.0 - 16.0 G/DL 09/03/2022 3:18 PM CDT [facility] HCT 36.7(L) 38.0 - 48.0 % 09/03/2022 3:18 PM CDT [facility] MCV 90.0 81.0 - 99.0 FL 09/03/2022 3:18 PM CDT [facility] MCH 30.1 27.0 - 31.0 PG 09/03/2022 3:18 PM CDT [facility] MCHC 33.5 32.0 - 36.0 G/DL 09/03/2022 3:18 PM CDT [facility] RDW 12.8 11.5 - 14.5 % 09/03/2022 3:18 PM CDT [facility] PLT 291 130 - 400 x10'3/uL 09/03/2022 3:18 PM CDT [facility] MPV 11.5 9.3 - 12.2 FL 09/03/2022 3:18 PM CDT [facility] DIFFERENTIAL TYPE AUTOMATED DIFFERENTIAL 09/03/2022 3:18 PM CDT [facility] NEUTROPHILS % 62.9 % 09/03/2022 3:18 PM CDT [facility] LYMPHOCYTES % 31.6 % 09/03/2022 3:18 PM CDT [facility] MONOCYTES % 3.9 % 09/03/2022 3:18 PM CDT [facility] EOSINOPHILS 0.7 % 09/03/2022 3:18 PM CDT [facility] BASOPHILS 0.6 % 09/03/2022 3:18 PM CDT [facility] IMMATURE GRANS % 0.3 % 09/04/19 3:18 PM CDT [facility] ABS. NEUTROPHILS TOTAL 6.55 1.80 - 7.70 x10'3/uL 09/03/2022 3:18 PM CDT [facility] ABS. LYMPHOCYTES 3.29 1.00 - 4.80 x10'3/uL 09/03/2022 3:18 PM CDT [facility] ABS. MONOCYTES 0.41 0.24 - 0.86 x10'3/uL 09/03/2022 3:18 PM CDT [facility] ABS. EOSINOPHILS 0.07 0.04 - 0.36 x10'3/uL 09/03/2022 3:18 PM CDT [facility] ABS. BASOPHILS 0.06 0.01 - 0.08 x10'3/uL 09/03/2022 3:18 PM CDT [facility] ABS. IMMATURE GRANULOCYTES 0.03 0.00 - 0.49 x10'3/uL 09/03/2022 3:18 PM CDT [facility] 09/03/2022 2:54 PM CDT Dior VASQUEZP LABORATORY Final Resul t Performing Organization Address [facility] Co de Phone Number [facility] [address] [place] [address], [place] [phone] * CULTURE URINE (09/03/2022 2:52 PM CDT) SPEC DESCRIPTION URINE CLEAN CATCH 09/03/2022 3:20 PM CDT [facility] SPECIAL REQUESTS NO SPECIAL REQUEST 09/03/2022 3:20 PM CDT [facility] CULTURE RESULT NO GROWTH 2 DAYS 09/05/2022 8:38 AM CDT [facility] URINE SPECIMEN OBTAINED BY CLEAN CATCH PROCEDURE / Unknown 09/03/2022 2:52 PM CDT 09/03/2022 3:19 PM CDT us Dior VASQUEZP MICROBIOLOGY - GENERAL ORDE RABLES Final Result [facility] [address] [place] [address], [place] [phone] * (ABNORMAL) URINALYSIS (09/03/2022 2:52 PM CDT) SPECIMEN TYPE URINE CLEAN CATCH 09/03/2022 2:53 PM CDT [facility] COLOR (U) LIGHT YELLOW 09/03/2022 3:19 PM CDT [facility] TRANSPARENCY TURBID 09/03/2022 3:19 PM CDT [facility] SPECIFIC GRAVITY (U) 1.016 1.001 - 1.030 09/03/2022 3:19 PM CDT [facility] U PH 5.5 5.0 - 9.0 09/03/2022 3:19 PM CDT [facility] LEUKOCYTES (U) NEGATIVE NEGATIVE 09/03/2022 3:19 PM CDT [facility] NITRITES NEGATIVE NEGATIVE 09/03/2022 3:19 PM CDT [facility] PROTEIN (U) 100(H) <30 MG/DL 09/03/2022 3:19 PM CDT [facility] GLUCOSE (U) 100(A) NORMAL MG/DL 09/03/2022 3:19 PM CDT [facility] KETONES MG/DL (U) NEGATIVE NEGATIVE MG/DL 09/03/2022 3:19 PM CDT [facility] UROBILINOGEN NORMAL NORMAL MG/DL 09/03/2022 3:19 PM CDT [facility] BILIRUBIN (U) NEGATIVE NEGATIVE MG/DL 09/03/2022 3:19 PM CDT [facility] BLOOD (U) TRACE(A) NEGATIVE 09/03/2022 3:19 PM CDT [facility] CULTURE & SENSITIVITY INDICATED? SPECIMEN SETUP FOR CULTURE 09/03/2022 3:19 PM CDT [facility] MUCUS RARE /LPF 09/03/2022 3:19 PM CDT [facility] WBC/HPF 7(H) <6 /HPF 09/03/2022 3:19 PM CDT [facility] RBC/HPF 2 <6 /HPF 09/03/2022 3:19 PM CDT [facility] BACTERIA (U) MODERATE(A) NONE /HPF 09/03/2022 3:19 PM CDT [facility] SQUAMOUS EPITHELIALS FEW /HPF 09/03/2022 3:19 PM CDT [facility] URINE SPECIMEN OBTAINED BY CLEAN CATCH PROCEDURE / Unknown 09/03/2022 2:52 PM CDT us Dior Maldonado ENGINEERING TECH URINE ORDERABLES Final Resu lt [facility] [address] [place] [address], * XR FOOT RT 3V (09/03/2022 2:39 PM CDT) Anatomical Region Laterality Modality Foot Radiographic Shelli ging 09/03/2022 2:40 PM CDT Impressions 09/03/2022 2:44 PM CDT IMPRESSION: No acute findings. Referred By: ?? Interpreted By: Arley Gastelum MD, 09/03/2022 2:40 PM Narrative 09/03/2022 2:44 PM CDT EXAMINATION: XR FOOT RT 3V HISTORY: Pain DATE: 09/03/2022 2:19 PM COMPARISON: December 08, 2021 TECHNIQUE: AP, oblique and lateral views of the right foot. ??3 images. FINDINGS: No acute fracture or dislocation. ??No destructive bone lesion. ??Please note that MRI is more sensitive for the detection of osteomyelitis. ??Old fracture of the fifth metatarsal. ??Plantar calcaneal spur. ??Mild midfoot arthritis. Procedure Note Arley Gastelum MD - 09/03/2022 EXAMINATION: XR FOOT RT 3V HISTORY: Pain DATE: 09/03/2022 2:19 PM COMPARISON: December 08, 2021 TECHNIQUE: AP, oblique and lateral views of the right foot. 3 images. FINDINGS: No acute fracture or dislocation. No destructive bone lesion.Please note that MRI is more sensitive for the detection of osteomyelitis.Old fracture of the fifth metatarsal. Plantar calcaneal spur. Mildmidfoot arthritis. IMPRESSION: No acute findings. Referred By: Interpreted By: Arley Gastelum MD, 09/03/2022 2:40 PM us Dior Maldonado ENGINEERING TECH GENERAL IMAGING Final Resul t * (ABNORMAL) SED RATE, ERYTHROCYTE (ESR) (09/03/2022 1:30 PM CDT) ESR 76(H) <30 MM/HR 09/03/2022 3:42 PM CDT [facility] Comment:Testing performed on [employer] iSED. 09/03/2022 1:30 PM CDT us Dior Maldonado [facility] Final Resul t [facility] [address] [place] [address], [place] [phone] documented in this encounter Visit Diagnoses Not on filedocumented in this encounter Admitting Diagnoses Diagnosis Soft tissue infection of foot Unspecified local infection of skin and subcutaneous tissue Necrotic toes (CMS/HCC HHS/HCC) Gangrene documented in this encounter Administered Medications Inactive Administered Medications - up to 3 most recent administrations Medication Order MAR Action Action Date Dose Rate Site acetaminophen (TYLENOL) tablet 650 mg 650 mg, Oral, Every 4 hours PRN, Mild pain (Scale 1 - 3), Starting on 09/03/22 at 1744, Until 09/09/22 at 1350, Maximum dose of acetaminophen is 4000 mg from all sources in 24 hours. Given 09/05/2022 8:28 PM CDT 650 mg amLODIPine (NORVASC) tablet 10 mg 10 mg, Oral, Nightly at bedtime, First dose on Sun09/03/22 at 2100, Until Discontinued Given 09/08/2022 7:58 PM CDT 10 mg Given 09/07/2022 9:35 PM CDT 10 mg Given 09/06/2022 8:19 PM CDT 10 mg atorvastatin (LIPITOR) tablet 20 mg 20 mg, Oral, Nightly at bedtime, First dose on Sun09/03/22 at 2100, Until Discontinued Given 09/08/2022 7:58 PM CDT 20 m g Given 09/07/2022 9:35 PM CDT 20 mg Given 09/06/2022 8:19 PM CDT 20 mg BUpivacaine (PF) (MARCAINE) 10 mL, lidocaine (XYLOCAINE) 2 % 10 mL solution As needed, Starting on Sun09/06/22 at 1250, Until Sun09/06/22 at 1317, Intra-Op Given 09/06/2022 12:50 PM CDT 10 mLs Operative Site diphenhydrAMINE (BENADRYL) capsule 25 mg 25 mg, Oral, Every 4 hours PRN, Allergies, Itching, Starting on Sun09/03/22 at 1708, Until 09/09/22 at 1350 enoxaparin (LOVENOX) 40 MG/0.4ML syringe 40 mg 40 mg, Subcutaneous, Nightly (enoxaparin), First dose on Sun09/03/22 at 2100, Until Discontinued, Administer by deep SubQ injection alternating between the left or right anterolateral and left or right posterolateral abdominal wall. Given 09/08/2022 8:01 PM CDT 40 mg Left Lower Abdomen Given 09/07/2022 9:36 PM CDT 40 mg Ri ght Lower Abdomen Given 09/06/2022 8:20 PM CDT 40 mg Ri ght Lower Abdomen famotidine (PEPCID) tablet 20 mg 20 mg, Oral, Every 12 hours scheduled (2 times per day), First dose (after last modification) on Sun09/05/22 at 1100, Until Discontinued Given 09/09/2022 9:07 AM CDT 2 0 mg Given 09/08/2022 7:59 PM CDT 20 mg Given 09/08/2022 9:31 AM CDT 20 mg hydrOXYzine (ATARAX) tablet 25 mg 25 mg, Oral, Nightly at bedtime, First dose on Sun09/03/22 at 2100, Until DiscontinuedIndications:Burning Sensation and Itching (Inactive) Given 09/08/2022 7:59 PM CDT 25 mg Given 09/07/2022 9:35 PM CDT 25 mg Given 09/06/2022 8:19 PM CDT 25 mg hydrOXYzine (VISTARIL) capsule 25 mg 25 mg, Oral, 3 times daily PRN, Itching, Anxiety, Starting on Sun09/05/22 at 0652, Until 09/09/22 at 1350 insulin glargine (LANTUS) injection 30 Units 30 Units, Subcutaneous, Nightly at bedtime, First dose (after last modification) on Sun09/07/22 at 2100, Until Discontinued Given 09/08/2022 8:01 PM CDT 30 Units Left Arm Given 09/07/2022 9:36 PM CDT 30 Units Ri ght Lower Abdomen insulin lispro (HUMALOG) injection 0-18 Units 0-18 Units, Subcutaneous, 3 times daily before meals, First dose on Sun09/07/22 at 1600, Until Discontinued, Blood Glucose (RESISTANT Dosing): [Less than 70:? Initiate Hypoglycemia Standing Orders] [71-140:? 0 units] [141-180:? 6 units] [181-220:? 8 units] [221-260:? 10 units] [261-300:? 12 units] [301-350:? 14 units] [351-400:? 16 units] [Greater than 400:? 18 units and Call Physician] Given 09/08/2022 5:57 PM CDT 8 Units Right Arm Given 09/08/2022 1:29 PM CDT 8 Units Le ft Arm Given 09/07/2022 4:38 PM CDT 16 Units Le ft Lower Abdomen insulin lispro (HUMALOG) injection 0-9 Units 0-9 Units, Subcutaneous, Nightly at bedtime, First dose on Sun09/07/22 at 2100, Until Discontinued, Blood Glucose (RESISTANT Dosing): [Less than 70:? Initiate Hypoglycemia Standing Orders] [71-180:? 0 units] [181-220:? 4 units] [221-260:? 5 units] [261-300:? 6 units] [301-350:? 7 units] [351-400:? 8 units] [Greater than 400:? 9 units and Call Physician] Given 09/08/2022 8:10 PM CDT 4 Units Left Arm Given 09/07/2022 9:35 PM CDT 6 Units Ri ght Lower Abdomen insulin lispro (HUMALOG) injection 10 Units 10 Units, Subcutaneous, 3 times daily before meals, First dose (after last modification) on Sun09/07/22 at 1600, Until Discontinued, Administer with first bite of meal. HOLD if NPO or Clear Liquids. Given 09/09/2022 9:07 AM CDT 10 Units Left Arm Given 09/08/2022 5:57 PM CDT 10 Units Ri ght Arm Given 09/08/2022 1:29 PM CDT 10 Units Le ft Arm lisinopril (PRINIVIL) tablet 20 mg 20 mg, Oral, Every evening, First dose (after last modification) on Sun09/04/22 at 2100, Until DiscontinuedIndications:hypertension Given 09/08/2022 7:59 PM CDT 2 0 mg Given 09/07/2022 9:36 PM CDT 20 mg Given 09/06/2022 8:20 PM CDT 20 mg ondansetron (ZOFRAN) injection 4 mg 4 mg, Intravenous, Every 8 hours PRN, Nausea, Starting on Sun09/05/22 at 0623, Until 09/09/22 at 1350, IV push over 2-5 minutes. Given 09/05/2022 6:28 AM CDT 4 mg oxyCODONE immediate release (ROXICODONE) tablet 10 mg 10 mg, Oral, Every 6 hours PRN, Severe pain (Scale 8 - 10), Starting on Sun09/07/22 at 1234, Until 09/09/22 at 1350 Given 09/08/2022 12:30 AM CDT 10 mg Given 09/07/2022 4:35 PM CDT 10 mg oxyCODONE immediate release (ROXICODONE) tablet 5 mg 5 mg, Oral, Every 4 hours PRN, Moderate pain (Scale 4 - 7), Starting on Viky 09/07/22 at 1234, Until 09/09/22 at 1350 phenazopyridine tablet 190 mg 190 mg, Oral, 3 times daily PRN, Pain, Urinary discomfort, Starting on 09/05/22 at 1039, Until 09/09/22 at 1350, Give after meals. May discolor urine (orange/yellow); will stain fabric. polyethylene glycol (GLYCOLAX) packet 17 g 17 g, Oral, Daily as needed, Constipation, Starting on 09/03/22 at 1744, Until 09/09/22 at 1350, If both senna and polyethylene glycol are ordered, use 1st; if no response by next dosing interval, go to next option. Given 09/04/2022 8:16 PM CDT 17 g documented in this encounter Active and Recently Administered Medications Times are shown in CDT. Scheduled Medication Order 09/07/2022 09/08/2022 09/09/2022 amLODIPine (NORVASC) tablet 10 mg 10 mg, Oral, Nightly at bedtime, First dose on 09/03/22 at 2100, Until Discontinued 2134 (Given - Provider: Evan Fang, DEANDRE) 1956 (Given - Provider: Maximo Ramirez, DEANDRE) atorvastatin (LIPITOR) tablet 20 mg 20 mg, Oral, Nightly at bedtime, First dose on 09/03/22 at 2100, Until Discontinued 2134 (Given - Provider: Evan Fang, DEANDRE) 1956 (Given - Provider: Maximo Ramirez, DEANDRE) enoxaparin (LOVENOX) 40 MG/0.4ML syringe 40 mg(Linked Group 1) 40 mg, Subcutaneous, Nightly (enoxaparin), First dose on 09/03/22 at 2100, Until Discontinued, Administer by deep SubQ injection alternating between the left or right anterolateral and left or right posterolateral abdominal wall. 2135 (Given - Provider: Evan Fang RN) 2000 (Given - Provider: Maximo Ramirez RN) famotidine (PEPCID) tablet 20 mg 20 mg, Oral, Every 12 hours scheduled (2 times per day), First dose (after last modification) on Sun09/05/22 at 1100, Until Discontinued 857 (Given - Provider: Ivon Jerez RN)2134 (Given - Provider: Evan Fang, DEANDRE) 930 (Given - Provider: Candido Mathews RN)1958 (Given - Provider: Maximo Ramirez RN) 906 (Given - Provider: Candido Mathews RN) hydrOXYzine (ATARAX) tablet 25 mg 25 mg, Oral, Nightly at bedtime, First dose on Sun09/03/22 at 2100, Until Discontinued 2134 (Given - Provider: Evan Fang RN) 1958 (Given - Provider: Maximo Ramirez RN) insulin glargine (LANTUS) injection 30 Units(Linked Group 2) 30 Units, Subcutaneous, Nightly at bedtime, First dose (after last modification) on Sun09/07/22 at 2100, Until Discontinued 2135 (Given - Provider: Evan Fang, DEANDRE) 2000 (Given - Provider: Maximo Ramirez RN) insulin lispro (HUMALOG) injection 0-16 Units (CANCELED)(Linked Group 3) 0-16 Units, Subcutaneous, 3 times daily before meals, First dose on Sun09/05/22 at 1100, Until Discontinued, Blood Glucose (USUAL Dosing): [Less than 70:? Initiate Hypoglycemia Standing Orders] [71-140: ? 0 units] [141-180:? 4 units] [181-220:? 6 units] [221-260:? 8 units] [261-300:? 10 units] [301-350:? 12 units] [351-400:? 14 units] [Greater than 400:? 16 units and Call Physician] 08 (Given - Provider: Ivon Jerez RN)1852 (Canceled Entry - Provider: Ivon Jerez RN) insulin lispro (HUMALOG) injection 0-18 Units(Linked Group 4) 0-18 Units, Subcutaneous, 3 times daily before meals, First dose on Viky 09/07/22 at 1600, Until Discontinued, Blood Glucose (RESISTANT Dosing): [Less than 70:? Initiate Hypoglycemia Standing Orders] [71-140:? 0 units] [141-180:? 6 units] [181-220:? 8 units] [221-260:? 10 units] [261-300:? 12 units] [301-350:? 14 units] [351-400:? 16 units] [Greater than 400:? 18 units and Call Physician] 1638 (Given - Provider: Ivon Jerez RN) 0733 (Not Given - Provider: Candido Mathews RN - Reason: Order parameters not met)1329 (Given - Provider: Candido Mathews RN)1757 (Given - Provider: Candido Mathews RN) 0908 (Not Given - Provider: Candido Mathews RN - Reason: Order parameters not met)1100 (Canceled Entry - Provider: Automatic Discharge Provider - Comment: Automatically canceled at discontinue of medication order) insulin lispro (HUMALOG) injection 0-9 Units(Linked Group 4) 0-9 Units, Subcutaneous, Nightly at bedtime, First dose on Viky 09/07/22 at 2100, Until Discontinued, Blood Glucose (RESISTANT Dosing): [Less than 70:? Initiate Hypoglycemia Standing Orders] [71-180:? 0 units] [181-220:? 4 units] [221-260:? 5 units] [261-300:? 6 units] [301-350:? 7 units] [351-400:? 8 units] [Greater than 400:? 9 units and Call Physician] 2134 (Given - Provider: Evan Fang, DEANDRE) 2009 (Given - Provider: Maximo Ramirez RN) insulin lispro (HUMALOG) injection 10 Units(Linked Group 2) 10 Units, Subcutaneous, 3 times daily before meals, First dose (after last modification) on Sun09/07/22 at 1600, Until Discontinued, Administer with first bite of meal. HOLD if NPO or Clear Liquids. 1638 (Given - Provider: Ivon Jerez RN) 0930 (Given - Provider: Candido Mathews, DEANDRE)1329 (Given - Provider: Candido Mathews, RN)1757 (Given - Provider: Candido Mathews, RN) 0907 (Given - Provider: Candido Mathews, RN)1100 (Canceled Entry - Provider: Automatic Discharge Provider - Comment: Automatically canceled at discontinue of medication order) insulin lispro (HUMALOG) injection 6 Units (CANCELED) 6 Units, Subcutaneous, 3 times daily before meals, First dose (after last modification) on Sun09/06/22 at 1600, Until Discontinued, Administer with first bite of meal. HOLD if NPO or Clear Liquids. 0858 (Given - Provider: Ivon Jerez RN)1853 (Canceled Entry - Provider: Iovn Jerez RN) insulin NPH (HUMULIN N) injection 20 Units (COMPLETED) 20 Units, Subcutaneous, Once, 1 dose, On Sun09/07/22 at 1230 1359 (Given - Provider: Ivon Jerez RN) insulin regular (NOVOLIN R/HUMULIN R) injection 10 Units (COMPLETED) 10 Units, Subcutaneous, Once, 1 dose, On Sun09/07/22 at 1815, For sliding scale, activate Sliding Scale Insulin order set. 1817 (Given - Provider: Ivon Jerez RN) ketorolac (TORADOL) injection 15 mg (COMPLETED) 15 mg, Intravenous, Once, 1 dose, On Sun09/08/22 at 1630, For IV administration, give over 15 seconds. 1610 (Given - Provider: Candido Mathews, DEANDRE) lisinopril (PRINIVIL) tablet 20 mg 20 mg, Oral, Every evening, First dose (after last modification) on Sun09/04/22 at 2100, Until Discontinued 2136 (Given - Provider: Evan Fang, RN) 1959 (Given - Provider: Maximo Ramirez RN) morphine injection 1 mg 1 mg, Intravenous, Once, 1 dose, On Sun09/07/22 at 0300 0514 (Not Given - Provider: Evan Fang RN - Reason: Patient sleeping) nitrofurantoin (macrocrystal-monohydrat e) (MACROBID) capsule 100 mg (COMPLETED) 100 mg, Oral, Every 12 hours scheduled (2 times per day), 6 doses, First dose on Sun09/05/22 at 1030, Last dose on Sun09/07/22 at 2100 0858 (Given - Provider: Ivon Jerez, RN)2135 (Given - Provider: Evan Fang RN) sodium chloride 0.9% bolus infusion 1,000 mL (COMPLETED) 1,000 mL, Intravenous, Administer over 60 Minutes, Once, 1 dose, On Viky 09/07/22 at 1230 1234 (New Bag - Provider: Ivon Jerez RN)1330 (Infusion Stop Time - Provider: Ivon Jerez RN) Continuous Medication Order 09/07/2022 09/08/2022 09/09/2022 lactated ringers infusion at 10 mL/hr, Intravenous, Continuous, Starting on Sun09/06/22 at 1245, Until 09/09/22 at 1350, Infuse at TKO rate, Pre-Op PRN Medication Order 09/07/2022 09/08/2022 09/09/2022 acetaminophen (TYLENOL) tablet 650 mg 650 mg, Oral, Every 4 hours PRN, Mild pain (Scale 1 - 3), Starting on 09/03/22 at 1744, Until 09/09/22 at 1350, Maximum dose of acetaminophen is 4000 mg from all sources in 24 hours. cyclobenzaprine (FLEXERIL) tablet 10 mg 10 mg, Oral, 3 times daily PRN, Muscle Spasms, Starting on 09/03/22 at 1746, Until 09/09/22 at 1350 dextrose 10 % bolus infusion 125-250 mL 125-250 mL, Intravenous, Administer over 15 Minutes, As needed, Low Blood Sugar, Starting on 09/03/22 at 1744, Until 09/09/22 at 1350, If patient is verbally responsive and NPO [...] capsule 25 mg 25 mg, Oral, Every 4 hours PRN, Allergies, Itching, Starting on 09/03/22 at 1708, Until 09/09/22 at 1350 glucagon injection 1 mg 1 mg, Intramuscular, Once as needed, Other, Low blood sugar, 1 dose, Starting on 09/03/22 at 1744, Until 09/09/22 at 1350, If patient is verbally UNresponsive and no IV access with blood glucose less than 70 mg/dL. Do NOT repeat administration. glucose oral gel 32-64 mL 32-64 mL (15-30 g of dextrose), Oral, As needed, Low blood sugar, Starting on 09/03/22 at 1744, Until 09/09/22 at 1350, If patient is verbally responsive and taking thickened liquids or oral medications: Blood glucose less than 50 mg/dL - give 30 g of dextrose; repeat until blood glucose reaches 70 mg/dL Blood glucose 50-69 mg/dL - give 15 g of dextrose; repeat until blood glucose reaches 70 mg/dL 32 mL of glucose gel = 15 g of dextrose hydrOXYzine (VISTARIL) capsule 25 mg 25 mg, Oral, 3 times daily PRN, Itching, Anxiety, Starting on 09/05/22 at 0652, Until 09/09/22 at 1350 ondansetron (ZOFRAN) injection 4 mg 4 mg, Intravenous, Every 8 hours PRN, Nausea, Starting on e 09/05/22 at 0623, Until 09/09/22 at 1350, IV push over 2-5 minutes. oxyCODONE immediate release (ROXICODONE) tablet 10 mg 10 mg, Oral, Every 6 hours PRN, Severe pain (Scale 8 - 10), Starting on Viky 09/07/22 at 1234, Until 09/09/22 at 1350 1635 (Given - Provider: Ivon Jerez RN) 0030 (Given - Provider: Evan Fang RN) oxyCODONE immediate release (ROXICODONE) tablet 5 mg (CANCELED) 5 mg, Oral, Every 4 hours PRN, Severe pain (Scale 8 - 10), Starting on Sun09/04/22 at 1330, Until Viky 09/07/22 at 1234 0208 (Given - Provider: Evan Fang RN) oxyCODONE immediate release (ROXICODONE) tablet 5 mg 5 mg, Oral, Every 4 hours PRN, Moderate pain (Scale 4 - 7), Starting on Viky 09/07/22 at 1234, Until 09/09/22 at 1350 pantoprazole EC (PROTONIX) tablet 40 mg 40 mg, Oral, DAILY PRN, GERD, Starting on Sun09/03/22 at 1822, Until 09/09/22 at 1350, Do not break, chew, or crush. phenazopyridine tablet 190 mg 190 mg, Oral, 3 times daily PRN, Pain, Urinary discomfort, Starting on Sun09/05/22 at 1039, Until 09/09/22 at 1350, Give after meals. May discolor urine (orange/yellow); will stain fabric. polyethylene glycol (GLYCOLAX) packet 17 g 17 g, Oral, Daily as needed, Constipation, Starting on Sun09/03/22 at 1744, Until 09/09/22 at 1350, If both senna and polyethylene glycol are ordered, use 1st; if no response by next dosing interval, go to next option. Linked Groups Order Group 1: enoxaparin (LOVENOX) 40 MG/0.4ML syringe 40 mgJump to med 40 mg, Subcutaneous, Nightly (enoxaparin), First dose on Sun09/03/22 at 2100, Until Discontinued, Administer by deep SubQ injection alternating between the left or right anterolateral and left or right posterolateral abdominal wall. And Moderate Risk for VTE (COMPLETED) Group 2: insulin glargine (LANTUS) injection 30 UnitsJump to med 30 Units, Subcutaneous, Nightly at bedtime, First dose (after last modification) on Sun09/07/22 at 2100, Until Discontinued And insulin lispro (HUMALOG) injection 10 UnitsJump to med 10 Units, Subcutaneous, 3 times daily before meals, First dose (after last modification) on Sun09/07/22 at 1600, Until Discontinued, Administer with first bite of meal. HOLD if NPO or Clear Liquids. Group 3: insulin lispro (HUMALOG) injection 0-16 Units (CANCELED)Jump to med 0-16 Units, Subcutaneous, 3 times daily before meals, First dose on Sun09/05/22 at 1100, Until Discontinued, Blood Glucose (USUAL Dosing): [Less than 70:? Initiate Hypoglycemia Standing Orders] [71-140: ? 0 units] [141-180:? 4 units] [181-220:? 6 units] [221-260:? 8 units] [261-300:? 10 units] [301- 350:? 12 units] [351-400:? 14 units] [Greater than 400:? 16 units and Call Physician] And insulin lispro (HUMALOG) injection 0-8 Units (CANCELED) 0-8 Units, Subcutaneous, Nightly at bedtime, First dose on Sun09/05/22 at 2100, Until Discontinued, Blood Glucose (USUAL Dosing): [Less than 70:? Initiate Hypoglycemia Standing Orders] [71-180:? 0 units] [181-220:? 3 units] [221-260:? 4 units] [261-300:? 5 units] [301-350:? 6 units] [351-400:? 7 units] [Greater than 400:? 8 units and Call Physician] Group 4: insulin lispro (HUMALOG) injection 0-18 UnitsJump to med 0-18 Units, Subcutaneous, 3 times daily before meals, First dose on Sun09/07/22 at 1600, Until Discontinued, Blood Glucose (RESISTANT Dosing): [Less than 70:? Initiate Hypoglycemia Standing Orders] [71-140:? 0 units] [141-180:? 6 units] [181-220:? 8 units] [221-260:? 10 units] [261-300:? 12 units] [301- 350:? 14 units] [351-400:? 16 units] [Greater than 400:? 18 units and Call Physician] And insulin lispro (HUMALOG) injection 0-9 UnitsJump to med 0-9 Units, Subcutaneous, Nightly at bedtime, First dose on Viky 09/07/22 at 2100, Until Discontinued, Blood Glucose (RESISTANT Dosing): [Less than 70:? Initiate Hypoglycemia Standing Orders] [71-180:? 0 units] [181-220:? 4 units] [221-260:? 5 units] [261-300:? 6 units] [301-350:? 7 units] [351- 400:? 8 units] [Greater than 400:? 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
--- OUTSIDE RECORDS SUMMARY | 2024-03-02 22:25 | XMS_ITS | Encounter Summary ---
Author Organization [facility] Address [address] [place] [address]. [place], [place] [address] [place] [id number] Care Team Providers Care Lead Simulation Modeling Engineer Name Role Phone Colton SILVEIRA MD, Yasmin Rushing Primary Care Provider Victoriano Langston MD Unavailable [phone] Reason for Referral * Imaging (Emergency) - Closed Specialty Diagnoses / Procedures Referred By Contac t Referred To Contact RADIOLOGY Procedures MRI FOOT LT WO CON Sofy Carrington MD Phone: tel: fax: Referral ID Status Reason Start Date Expiration Date Visits Re quested Visits Authorized [id number] Closed 09/07/2022 09/08/2023 1 1 * Imaging (Urgent) - Closed Specialty Diagnoses / Procedures Referred By Contac t Referred To Contact RADIOLOGY Procedures MRI FOOT RT WO CON MRI FOOT RT WO CON MRI FOOT RT W CON Nick Hernandes MD Phone: tel: fax: Referral ID Status Reason Start Date Expiration Date Visits Re quested Visits Authorized [id number] Closed 09/03/2022 09/04/2023 1 1 * (Routine) - Closed Specialty Diagnoses / Procedures Referred By Contac t Referred To Contact Procedures OT eval and treat Audie Hightower DO [address] [address] Phone: tel: fax: Referral ID Status Reason Start Date Expiration Date Visits Re quested Visits Authorized [id number] Closed 09/03/2022 09/04/2023 1 1 * (Routine) - Closed Specialty Diagnoses / Procedures Referred By Lyla t Referred To Contact Procedures PT eval and treat Audie Hightower DO [address] [address] Phone: tel: fax: Referral ID Status Reason Start Date Expiration Date Visits Re quested Visits Authorized [id number] Closed 09/03/2022 09/04/2023 1 1 Reason for Visit * Reason Comments Toe Pain Urinary Symptoms * Auth/Cert (Routine) Specialty Diagnoses / Procedures Referred By Contxavier t Referred To Contact Diagnoses Soft tissue infection of foot Soft tissue infection of foot Procedures NONE Referral ID Status Reason Start Date Expiration Date Visits Re quested Visits Authorized [id number] 1 1 Encounter Details Date Type Department Care Team (Late st Contact Info) Description 09/03/2022 2:12 PM CDT - 09/09/2022 11:49 AM CDT Hospital Encounter [facility] [address] [place], [place] [address] Dior Maldonado, ELECTRICAL HARDWARE ENGINEER [id number] [place] [address] Kirit Yoon MD [address] [address] Arelis Bermeo MD [address] [address] Toe Pain; Urinary Symptoms Discharge Disposition: Home or Self Care (Routine [...] Recorded Patient Health Questionnaire-2 Score 0 05/05/2022 [facility] Occupat ional Health - Occupational Stress [...] slept in a custodial (including now)? No 09/03/2022 Comments No Sex and Gender Information Value Date Recorded Sex Assigned at Female 12/17/2021 2:07 AM CDT Legal Sex Female 2:58 PM CDT Gender Identity Female 12/17/2021 2:07 AM CDT Sexual Orientation Straight 12/17/2021 2: 07 AM CDT documented as of this encounter Last Filed Vital Signs Vital Sign Reading Time Taken Comments Blood Pressure 108/69 09/09/2022 9:42 AM CDT Pulse 77 09/09/2022 9:42 AM CDT Temperature 36.9 ??C (98.4 ??F) 09/09/2022 9:42 AM CD T Respiratory Rate 12 09/09/2022 9:42 AM CDT Oxygen Saturation 100% 09/09/2022 9:42 AM CDT Inhaled Oxygen Concentration - - Weight 88.9 kg (195 lb 15.8 oz) 09/09/2022 4:16 AM CDT Height 167.6 cm (5' 6 ) 09/03/2022 1:14 PM CDT Body Mass Index 31.63 09/03/2022 1:14 PM CDT documented in this encounter Functional Status * Question Answer Date of Assessment Author Status Do you have serious difficulty walking or climbing stairs? Yes 09/03/2022 9:25 PM Azeem Knox RN Activ e * Question Answer Date [...] Everywhere. * Diabetic Foot Ulcer Discharge Instructions (Bur[place]ian) documented in this encounter Medications at Time [...] parameters Outcome: Adequate for Discharge * Shana Martinez SENIOR DESIGNER/ART DIRECTOR - 09/09/2022 10:48 AM CDT Spoke with [...] Needed at Discharge No * Shana Martinez SENIOR DESIGNER/ART DIRECTOR - 09/09/2022 10:47 AM CDT I delivered the Reinforcement Important Message from Medicare (Subsequent [facility]) to Lena Wahl after explaining the form to the patient, the Patient signed the form. The Patient received a copy of the form for their records. 09/09/22 1047 Forms Reinforcement Important Message from Medicare (Subsequent [facility]) Signed Copy delivered * Maximo Ramirez RN [...] 90.4 kg (199 lb 4.7 oz) 09/07/22 0424 Weight: 90.4 kg (199 lb 4.7 oz) [...] No results for input(s): PH, PCO2, PO2, [id number], BICARBWB, BASEDEFICIT, BASEEXCESS in the [id number] hours. Cultures: Blood: Results for orders placed [...] Component Value Units Date/Time CULTURE, BACTERIA, BLOOD [[id number]] Collected: 09/03/221947 Order Status: Sent Lab Status: In process Updated: 09/03/221954 Specimen: BLOOD CULTURE, BACTERIA, BLOOD [[id number]] Collected: 09/03/221935 Order Status: Sent Lab Status: In process Updated: 09/03/221955 Specimen: BLOOD CULTURE URINE [[id number]] Collected: 09/03/22 1452 Order Status: No result [...] By: Walter Alvarez MD, 09/07/2022 8:58 PM 07/20/23 1229 XR FOOT LT 2V Final result [...] night sweats, ongoing for several months now. Matthews like it was worse last night. Review [...] 90.4 kg (199 lb 4.7 oz) 09/07/22 0424 Weight: 90.4 kg (199 lb 4.7 oz) [...] 1454 09/04/22 0820 09/05/22 0956 09/06/22 0454 09/07/22 0440 NA 135* < > 131* 138 [...] No results for input(s): PH, PCO2, PO2, [id number], BICARBWB, BASEDEFICIT, BASEEXCESS in the [id number] hours. Cultures: Blood: Results for orders placed [...] Component Value Units Date/Time CULTURE, BACTERIA, BLOOD [[id number]] Collected: 09/03/221947 Order Status: Sent Lab Status: In process Updated: 09/03/221954 Specimen: BLOOD CULTURE, BACTERIA, BLOOD [[id number]] Collected: 09/03/221935 Order Status: Sent Lab Status: In process Updated: 09/03/221955 Specimen: BLOOD CULTURE URINE [[id number]] Collected: 09/03/22 1452 Order Status: No result [...] RN - 09/06/2022 12:48 PM CDT 09/06/22 1247 Interdisciplinary Group Conference Team Members Present Physician [...] No results for input(s): PH, PCO2, PO2, [id number], BICARBWB, BASEDEFICIT, BASEEXCESS in the kgou804 hours. Cultures: Blood: Results for orders placed [...] Component Value Units Date/Time CULTURE, BACTERIA, BLOOD [[id number]] Collected: 09/03/221947 Order Status: Sent Lab Status: In process Updated: 09/03/221954 Specimen: BLOOD CULTURE, BACTERIA, BLOOD [[id number]] Collected: 09/03/221935 Order Status: Sent Lab Status: In process Updated: 09/03/221955 Specimen: BLOOD CULTURE URINE [[id number]] Collected: 09/03/22 1452 Order Status: No result [...] injection 4 Units 4 Units Subcutaneous TID AC Sofy Carrington MD 4 Units at 09/05/221225 insulin lispro (HUMALOG) injection 0-16 Units 0-16 Units Subcutaneous TID AC Sofy Carrington MD 10 Units at 09/05/22 1226 And insulin lispro (HUMALOG) injection 0-8 Units [...] Felice Reeves MD 4 mg at 09/05/22 06 oxyCODONE immediate release (ROXICODONE) tablet 5 mg 5 mg Oral Q4H PRN Sofy Carrington MD 5 mg at 09/05/22 122 pantoprazole EC (PROTONIX) tablet 40 mg 40 [...] the last 168 hours. Recent Labs Lab 09/03/221947 LACTICACID 1.5 No results for input(s): PH, PCO2, PO2, [id number], BICARBWB, BASEDEFICIT, BASEEXCESS in the igat270 hours. Cultures: Blood: Results for orders placed [...] Component Value Units Date/Time CULTURE, BACTERIA, BLOOD [[id number]] Collected: 09/03/221947 Order Status: Sent Lab Status: In process Updated: 09/03/221954 Specimen: BLOOD CULTURE, BACTERIA, BLOOD [[id number]] Collected: 09/03/221935 Order Status: Sent Lab Status: In process Updated: 09/03/221955 Specimen: BLOOD CULTURE URINE [[id number]] Collected: 09/03/22 1452 Order Status: No result [...] person. Present for this entire encounter. * [place] Reagan Mathews RN - 09/05/2022 4:18 AM CDT [...] Risk of Polypharmacy Outcome: Progressing * Teresa Stout V - 09/04/2022 2:34 PM CDT I delivered the First Important Message from Medicare ([employer]) to Lena Youngblood and after explaining the form to the patient, the Patient signed the form. The Patient received a copy of the form fortheir records. 09/04/22 1434 Forms First Important Message from Medicare ([employer]) Signed Copy delivered * Megha Ballard, OTR [...] changes please send new orders * Maryann Benavides PT - 09/04/2022 10:57 AM CDT 09/04/22 [...] 2 Wheeled walker;Wheelchair-manual Prior Function Level of [place] Independent with functional transfers;Independent with ambulation;Needs assistance [...] Home Health: [facility] Caregiver- 5x/week, 4hrs/day Occupation: Disabled Pharmacy: [facility] Financial Concerns: No financial concerns reported PCP/Insurance Plan: Yasmin Segura/[facility] Discharge needs: Patient expects to return home [...] wheel walker Behavior Oriented;Cooperative Communication Talks;Understands speaking;Understands [place]ian Current Services Being Provided Other Services Personal [...] the last 168 hours. Recent Labs Lab 09/03/221947 LACTICACID 1.5 No results for input(s): PH, PCO2, PO2, T0TODPMZYFLF, BICARBWB, BASEDEFICIT, BASEEXCESS in the vkze483 hours. Cultures: Blood: No results found for this visit on 09/03/22 (from the past 168 hour(s)). Urine: No results found for this visit on 09/03/22 (from the past 168 hour(s)). Microbiology Results (last 14 days) Procedure Component Value Units Date/Time CULTURE, BACTERIA, BLOOD [[id number]] Collected: 09/03/221947 Order Status: Sent Lab Status: In process Updated: 09/03/221954 Specimen: BLOOD CULTURE, BACTERIA, BLOOD [[id number]] Collected: 09/03/221935 Order Status: Sent Lab Status: In process Updated: 09/03/221955 Specimen: BLOOD CULTURE URINE [[id number]] Collected: 09/03/22 1452 Order Status: No result [...] in this encounter H&P Notes * Audie Hightower DO - 09/03/2022 6:16 PM CDT HISTORY AND [...] other toes amputated. 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) LEFT FOOT Constipation COVID-19 Diabetes mellitus ([facility]) Diabetic neuropathy ([facility]) High cholesterol Hypertension Renal disorder [...] Procedure Component Value Units Date/Time CULTURE URINE [[id number]] Collected: 09/03/22 1452 Order Status: No result Lab Status: In process Updated: 09/03/22 1520 CULTURE, BACTERIA, BLOOD [[id number]] Order Status: Sent Lab Status: No result Specimen: BLOOD CULTURE, BACTERIA, BLOOD [[id number]] Order Status: Sent Lab Status: No result [...] Arthritis Charcot foot due to diabetes mellitus ([facility]) LEFT FOOT Constipation COVID-19 Diabetes mellitus (CMS/HCC) [...] for VTE, , , Once, Audie Hightower, DO famotidine (PEPCID) tablet 20 mg, 20 mg, Oral, 2 times per day, Sofy Carrington MD, 20 mg at 09/06/22 0944 famotidine (PEPCID) tablet 20 mg, 20 mg, [...] day,Sofy Carrington MD, 100 mg at 09/06/22 09 ondansetron (ZOFRAN) injection 4 mg, 4 mg, Intravenous, Q8H PRN, Felice Reeves MD, 4 mg at 09/05/22 06 oxyCODONE immediate release (ROXICODONE) tablet 5 mg, 5 mg, Oral, Q4H PRN, Sofy Carrington MD, 5mg at 09/05/222321 pantoprazole EC (PROTONIX) tablet 40 mg, 40 [...] oil, Amoxicillin, and Penicillins Vitals Filed Vitals: 09/05/22200409/06/22 0050 09/06/227 09/06/2228 BP: (!) 142/68 107/52 124/64 106/62 Pulse: [...] 102/64 Pulse: 86 86 84 78 Resp: Temp: 98.2 ??F (36.8 ??C) 98.2 ??F [...] in this encounter Nursing Notes * Evan Fang RN - 09/08/2022 2:40 AM CDT Pt [...] like spinning Checked her vital signs Informed [facility] Given medication as ordered EKG done She [...] Blanco RN - 09/03/2022 4:30 PM CDT food photographer attempted blood draw and IV access with [...] 177/96 (!) 177/99 Pulse: 92 89 Resp: 16 17 Temp: 98.1 ??F (36.7 ??C) TempSrc: Oral [...] FOOT RT 3V Final Result by User, [id number] (09/03 9362) EXAMINATION: XR FOOT RT 3V HISTORY: Pain [...] I dictated portions of this note using [employer] speech recognition software. Occasional wrong word or sound-alike substitutions may have occurred due to the inherent limitations of voice recognition software. DIOR MALDONADO, SIMRAN 09/03/2022 Dior Maldonado, [facility] 09/03/22 1731 Cosigned by Nicole Jolley MD [...] st Contact Info) Description 03/14/2024 11:45 AM CLINICAL ACCOUNT SPECIALIST Office Visit [facility]-[address] [phone] Marvin Mckeon MD [address] [place] [address] 03/20/2024 11:30 AM CLINICAL ACCOUNT SPECIALIST Office Visit [facility] Family [facility] - [place] [id number] Yasmin Segura II, MD [address] [place] [address] (work) documented as of this encounter Goals Goal [...] (ABNORMAL) POCT glucose (09/09/2022 4:39 AM CDT) [facility] Signature GLUCOSE POC 107(H) 70 - 99 mg/dL 09/09/2022 4:41 AM CDT [facility] 09/09/2022 4:39 AM CDT us Arelis Bermeo MD POCT ORDERABLES - DEVICE Final R esult [facility] [address] [place] [address], * (ABNORMAL) CBC W/DIFF AUTOMATED (09/09/2022 4:39 AM CDT) WBC 13.2(H) 4.5 - 11.0 x10'3/uL 09/09/2022 4:50 AM CDT [facility] RBC 3.97(L) 4.20 - 5.40 x10'6/uL 09/09/2022 4:50 AM CDT [facility] HGB 11.9(L) 12.0 - 16.0 G/DL 09/09/2022 4:50 AM CDT [facility] HCT 35.4(L) 38.0 - 48.0 % 09/09/2022 4:50 AM CDT [facility] MCV 89.2 81.0 - 99.0 FL 09/09/2022 4:50 AM CDT [facility] MCH 30.0 27.0 - 31.0 PG 09/09/2022 4:50 AM CDT [facility] MCHC 33.6 32.0 - 36.0 G/DL 09/09/2022 4:50 AM CDT [facility] RDW 12.7 11.5 - 14.5 % 09/09/2022 4:50 AM CDT [facility] PLT 289 130 - 400 x10'3/uL 09/09/2022 4:50 AM CDT [facility] MPV 10.9 9.3 - 12.2 FL 09/09/2022 4:50 AM CDT [facility] DIFFERENTIAL TYPE MANUAL DIFFERENTIAL 09/09/2022 6:11 AM CDT [facility] SEG NEUTROPHILS 54 % 6:11 AM CDT [facility] LYMPHOCYTES 41 % 09/09/2022 6:11 AM CDT [facility] MONOCYTES 4 % 09/09/2022 6:11 AM CDT [facility] BASOPHILS 1 % 09/09/2022 6:11 AM CDT [facility] ABS. NEUTROPHILS CALCULATED 7.13 1.80 - 7.70 x10'3/uL 09/09/2022 6:11 AM CDT [facility] ABS.LYMPHOCYTES CALCULATED 5.41(H) 1.00 - 4.80 x10'3/uL 09/09/2022 6:11 AM CDT [facility] ABS. MONOCYTES CALCULATED 0.53 0.24 - 0.86 x10'3/uL 09/09/2022 6:11 AM CDT [facility] ABS. BASOPHIL CALCULATED 0.13(H) 0.01 - 0.08 x10'3/uL 09/09/2022 6:11 AM CDT [facility] RBC MORPHOLOGY RBC MORPHOLOGY APPEARS NORMAL. SLIDE REVIEWED. 09/09/2022 6:11 AM CDT [facility] PLT EST. ADEQUATE 09/09/2022 6:11 AM CDT [facility] 09/09/2022 4:39 AM CDT us Sofy Carrington MD LABORATORY Final Resul t [facility] [address] [place] [address], [place] [phone] * (ABNORMAL) BASIC METABOLIC PANEL (09/09/2022 4:39 AM CDT) [facility] GLUCOSE 115(H) 70 - 99 MG/DL 09/09/2022 5:14 AM CDT [facility] BUN 30(H) 7 - 18 MG/DL 09/09/2022 5:14 AM CDT [facility] CREATININE S/P/B 1.11(H) 0.55 - 1.02 MG/DL 09/09/2022 5:14 AM CDT [facility] SODIUM S/P/B 138 136 - 145 MMOL/L 09/09/2022 5:14 AM CDT [facility] POTASSIUM S/P/B 4.3 3.5 - 5.1 MMOL/L 09/09/2022 5:14 AM CDT [facility] CHLORIDE S/P/B 109(H) 100 - 108 MMOL/L 09/09/2022 5:14 AM CDT [facility] CO2 27.5 21 - 32 MMOL/L 09/09/2022 5:14 AM CDT [facility] CALCIUM S/P/B 9.2 8.5 - 10.1 MG/DL 09/09/2022 5:14 AM CDT [facility] ANION GAP 1.5(L) 5 - 15 MMOL/L 09/09/2022 5:14 AM CDT [facility] BUN CREATININE RATIO 27.0(H) 6 - 26 09/09/2022 5:14 AM CDT [facility] GFR ESTIMATE 60(L) >90 ML/MIN/1.7 3 M2 09/09/2022 5:14 AM CDT [facility] Comment: NOTE: eGFR is not calculated for patients <18 years of age. This is an estimated GFR calculation using the new CKD EPI creatinine equation without race and so does not require a correction factor for race. This estimated GFR should not be used for calculating drug doses. 09/09/2022 4:39 AM CDT Sofy Carrington MD LABORATORY Final Resul t [facility] [address] [place] [address], [place] [phone] * (ABNORMAL) POCT glucose (09/08/2022 7:57 PM CDT) GLUCOSE POC 211(H) 70 - 99 mg/dL 09/08/2022 8:05 PM CDT [facility] 09/08/2022 7:57 PM CDT Arelis Bermeo MD POCT ORDERABLES - DEVICE Final R esult Performing Organization Address City/[facility]/ZIP Co de Phone Number [facility] [address] [place] [address], [place] [phone] * (ABNORMAL) URINALYSIS WI REFLEX TO CULTURE (09/08/2022 6:07 PM CDT) SPECIMEN TYPE URINE CLEAN CATCH 09/08/2022 6:12 PM CDT [facility] COLOR (U) LIGHT YELLOW 09/08/2022 6:40 PM CDT [facility] TRANSPARENCY CLEAR 09/08/2022 6:40 PM CDT [facility] SPECIFIC GRAVITY (U) 1.013 1.001 - 1.030 09/08/2022 6:40 PM CDT [facility] U PH 5.5 5.0 - 9.0 09/08/2022 6:40 PM CDT [facility] LEUKOCYTES (U) NEGATIVE NEGATIVE 09/08/2022 6:40 PM CDT [facility] NITRITES NEGATIVE NEGATIVE 09/08/2022 6:40 PM CDT [facility] PROTEIN (U) 30(H) <30 MG/DL 09/08/2022 6:40 PM CDT [facility] GLUCOSE (U) NORMAL NORMAL MG/DL 09/08/2022 6:40 PM CDT [facility] KETONES MG/DL (U) NEGATIVE NEGATIVE MG/DL 09/08/2022 6:40 PM CDT [facility] UROBILINOGEN NORMAL NORMAL MG/DL 09/08/2022 6:40 PM CDT [facility] BILIRUBIN (U) NEGATIVE NEGATIVE MG/DL 09/08/2022 6:40 PM CDT [facility] BLOOD (U) NEGATIVE NEGATIVE 09/08/2022 6:40 PM CDT [facility] CULTURE & SENSITIVITY INDICATED? CULTURE IS NOT INDICATED 09/08/2022 6:40 PM CDT [facility] RBC/HPF 1 <6 /HPF 09/08/2022 6:40 PM CDT [facility] SQUAMOUS EPITHELIALS RARE /HPF 09/08/2022 6:40 PM CDT [facility] URINE SPECIMEN OBTAINED BY CLEAN CATCH PROCEDURE / Unknown 09/08/2022 6:07 PM CDT us Sofy Carrington MD URINE ORDERABLES Final Resu lt [facility] [address] [place] [address], [place] [phone] * (ABNORMAL) POCT glucose (09/08/2022 4:04 PM CDT) GLUCOSE POC 187(H) 70 - 99 mg/dL 09/08/2022 4:06 PM CDT [facility] 09/08/2022 4:04 PM CDT Arelis Bermeo MD POCT ORDERABLES - DEVICE Final R esult [facility] [address] [place] [address], [place] [phone] * (ABNORMAL) POCT glucose (09/08/2022 11:58 AM CDT) GLUCOSE POC 215(H) 70 - 99 mg/dL 09/08/2022 12:02 PM CDT [facility] 09/08/2022 11:5 8 AM CDT Arelis Bermeo MD POCT ORDERABLES - DEVICE Final R esult [facility] [address] [place] [address], [place] [phone] * (ABNORMAL) CBC W/DIFF AUTOMATED (09/08/2022 8:12 AM CDT) WBC 16.8(H) 4.5 - 11.0 x10'3/uL 09/08/2022 8:36 AM CDT [facility] RBC 4.20 4.20 - 5.40 x10'6/uL 09/08/2022 8:36 AM CDT [facility] HGB 12.4 12.0 - 16.0 G/DL 09/08/2022 8:36 AM CDT [facility] HCT 37.5(L) 38.0 - 48.0 % 09/08/2022 8:36 AM CDT [facility] MCV 89.3 81.0 - 99.0 FL 09/08/2022 8:36 AM CDT [facility] MCH 29.5 27.0 - 31.0 PG 09/08/2022 8:36 AM CDT [facility] MCHC 33.1 32.0 - 36.0 G/DL 09/08/2022 8:36 AM CDT [facility] RDW 12.9 11.5 - 14.5 % 09/08/2022 8:36 AM CDT [facility] PLT 306 130 - 400 x10'3/uL 09/08/2022 8:36 AM CDT [facility] MPV 11.1 9.3 - 12.2 FL 09/08/2022 8:36 AM CDT [facility] DIFFERENTIAL TYPE AUTOMATED DIFFERENTIAL 09/08/2022 8:36 AM CDT [facility] NEUTROPHILS % 74.1 % 09/08/2022 8:36 AM CDT [facility] LYMPHOCYTES % 21.3 % 09/08/2022 8:36 AM CDT [facility] MONOCYTES % 3.9 % 09/08/2022 8:36 AM CDT [facility] EOSINOPHILS 0.1 % 09/08/2022 8:36 AM CDT [facility] BASOPHILS 0.2 % 09/08/2022 8:36 AM CDT [facility] IMMATURE GRANS % 0.4 % 09/09/19 8:36 AM CDT [facility] ABS. NEUTROPHILS TOTAL 12.46(H) 1.80 - 7.70 x10'3/uL 09/08/2022 8:36 AM CDT [facility] ABS. LYMPHOCYTES 3.57 1.00 - 4.80 x10'3/uL 09/08/2022 8:36 AM CDT [facility] ABS. MONOCYTES 0.66 0.24 - 0.86 x10'3/uL 09/08/2022 8:36 AM CDT [facility] ABS. EOSINOPHILS 0.01(L) 0.04 - 0.36 x10'3/uL 09/08/2022 8:36 AM CDT [facility] ABS. BASOPHILS 0.03 0.01 - 0.08 x10'3/uL 09/08/2022 8:36 AM CDT [facility] ABS. IMMATURE GRANULOCYTES 0.06 0.00 - 0.49 x10'3/uL 09/08/2022 8:36 AM CDT [facility] 09/08/2022 8:12 AM CDT us Sofy Carrington MD LABORATORY Final Resul t [facility] [address] [place] [address], [place] [phone] * (ABNORMAL) BASIC METABOLIC PANEL (09/08/2022 8:12 AM CDT) [facility] GLUCOSE 120(H) 70 - 99 MG/DL 09/08/2022 8:55 AM CDT [facility] BUN 24(H) 7 - 18 MG/DL 09/08/2022 8:55 AM CDT [facility] CREATININE S/P/B 1.00 0.55 - 1.02 MG/DL 09/08/2022 8:55 AM CDT [facility] SODIUM S/P/B 138 136 - 145 MMOL/L 09/08/2022 8:55 AM CDT [facility] POTASSIUM S/P/B 4.4 3.5 - 5.1 MMOL/L 09/08/2022 8:55 AM CDT [facility] CHLORIDE S/P/B 108 100 - 108 MMOL/L 09/08/2022 8:55 AM CDT [facility] CO2 29.2 21 - 32 MMOL/L 09/08/2022 8:55 AM CDT [facility] CALCIUM S/P/B 9.7 8.5 - 10.1 MG/DL 09/08/2022 8:55 AM CDT [facility] ANION GAP 0.8(L) 5 - 15 MMOL/L 09/08/2022 8:55 AM CDT [facility] BUN CREATININE RATIO 24.0 6 - 26 09/08/2022 8:55 AM CDT [facility] GFR ESTIMATE 68(L) >90 ML/MIN/1.7 3 M2 09/08/2022 8:55 AM CDT [facility] Comment: NOTE: eGFR is not calculated for patients <18 years of age. This is an estimated GFR calculation using the new CKD EPI creatinine equation without race and so does not require a correction factor for race. This estimated GFR should not be used for calculating drug doses. 09/08/2022 8:12 AM CDT us Sofy Carrington MD LABORATORY Final Resul t [facility] [address] [place] [address], * (ABNORMAL) POCT glucose (09/08/2022 6:16 AM CDT) GLUCOSE POC 126(H) 70 - 99 mg/dL 09/08/2022 6:17 AM CDT [facility] 09/08/2022 6:16 AM CDT us Arelis Bermeo MD POCT ORDERABLES - DEVICE Final R esult Performing Organization Address City/[facility] Co de Phone Number [facility] [address] [place] [address], [place] [phone] * (ABNORMAL) POCT glucose (09/08/2022 12:24 AM CDT) GLUCOSE POC 256(H) 70 - 99 mg/dL 09/08/2022 12:26 AM CDT [facility] 09/08/2022 12:2 4 AM CDT us Arelis Bermeo MD POCT ORDERABLES - DEVICE Final R esult Performing Organization Address [facility] [facility] Co de Phone Number [facility] [address] [place] [address], [place] [phone] * (ABNORMAL) POCT glucose (09/07/2022 9:20 PM CDT) GLUCOSE POC 264(H) 70 - 99 mg/dL 09/07/2022 9:26 PM CDT [facility] 09/07/2022 9:20 PM CDT us Arelis Bermeo MD POCT ORDERABLES - DEVICE Final R esult Performing Organization Address City/[facility]/ZIP Co de Phone Number [facility] [address] [place] [address], [place] [phone] * MRI FOOT LT WO CON (09/07/2022 [...] - 99 mg/dL 09/07/2022 5:51 PM CDT [facility] 09/07/2022 5:49 PM CDT Arelis Bermeo MD POCT ORDERABLES - DEVICE Final R esult [facility] [address] [place] [address], [place] [phone] * (ABNORMAL) POCT glucose (09/07/2022 4:33 PM CDT) GLUCOSE POC 390(H) 70 - 99 mg/dL 09/07/2022 4:58 PM CDT [facility] 09/07/2022 4:33 PM CDT Arelis Bermeo MD POCT ORDERABLES - DEVICE Final R esult Performing Organization Address City/[facility]/ZIP Co de Phone Number [facility] [address] [place] [address], * TSH W/REFLEX (09/07/2022 12:55 PM CDT) TSH 0.603 0.358 - 3.74 uIU/ML 09/07/2022 1:45 PM CDT [facility] Comment: HIGH DOSES OF BIOTIN MAY INTERFERE WITH THIS TEST RESULT. CORRELATION TO CLINICAL HISTORY AND PRESENTATION RECOMMENDED. FREE T4 NOT INDICATED 09/07/2022 12:5 5 PM CDT Sofy Carrington MD LABORATORY Final Resul t Performing Organization Address [facility] Co de Phone Number [facility] [address] [place] [address], [place] [phone] * (ABNORMAL) BASIC METABOLIC PANEL (09/07/2022 12:54 PM CDT) GLUCOSE 336(H) 70 - 99 MG/DL 09/07/2022 2:49 PM CDT [facility] BUN 27(H) 7 - 18 MG/DL 09/07/2022 2:49 PM CDT [facility] CREATININE S/P/B 1.45(H) 0.55 - 1.02 MG/DL 09/07/2022 2:49 PM CDT [facility] SODIUM S/P/B 132(L) 136 - 145 MMOL/L 09/07/2022 2:49 PM CDT [facility] POTASSIUM S/P/B 5.1 3.5 - 5.1 MMOL/L 09/07/2022 2:49 PM CDT [facility] CHLORIDE S/P/B 102 100 - 108 MMOL/L 09/07/2022 2:49 PM CDT [facility] CO2 21.7 21 - 32 MMOL/L 09/07/2022 2:49 PM CDT [facility] CALCIUM S/P/B 9.6 8.5 - 10.1 MG/DL 09/07/2022 2:49 PM CDT [facility] ANION GAP 8.3 5 - 15 MMOL/L 09/07/2022 2:49 PM CDT [facility] BUN CREATININE RATIO 18.6 6 - 26 09/07/2022 2:49 PM CDT [facility] GFR ESTIMATE 44(L) >90 ML/MIN/1.7 3 M2 09/07/2022 2:49 PM CDT [facility] Comment: NOTE: eGFR is not calculated for patients <18 years of age. This is an estimated GFR calculation using the new CKD EPI creatinine equation without race and so does not require a correction factor for race. This estimated GFR should not be used for calculating drug doses. 09/07/2022 12:5 4 PM CDT Sofy Carrington MD LABORATORY Final Resul t [facility] [address] [place] [address], [place] [phone] * XR FOOT LT 2V (09/07/2022 12:29 [...] - 99 mg/dL 09/07/2022 11:41 AM CDT [facility] 09/07/2022 11:2 0 AM CDT Arelis Bermeo MD POCT ORDERABLES - DEVICE Final R esult Performing Organization Address City/[facility]/ZIP Co de Phone Number [facility] [address] [place] [address], [place] [phone] * (ABNORMAL) POCT glucose (09/07/2022 8:04 AM CDT) GLUCOSE POC 267(H) 70 - 99 mg/dL 09/07/2022 8:07 AM CDT [facility] 09/07/2022 8:04 AM CDT Arelis Bermeo MD POCT ORDERABLES - DEVICE Final R esult Performing Organization Address City/[facility] Co de Phone Number [facility] [address] [place] [address], [place] [phone] * (ABNORMAL) CBC W/DIFF AUTOMATED (09/07/2022 4:40 AM CDT) WBC 15.9(H) 4.5 - 11.0 x10'3/uL 09/07/2022 5:07 AM CDT [facility] RBC 4.48 4.20 - 5.40 x10'6/uL 09/07/2022 5:07 AM CDT [facility] HGB 13.4 12.0 - 16.0 G/DL 09/07/2022 5:07 AM CDT [facility] HCT 39.8 38.0 - 48.0 % 09/07/2022 5:07 AM CDT [facility] MCV 88.8 81.0 - 99.0 FL 09/07/2022 5:07 AM CDT [facility] MCH 29.9 27.0 - 31.0 PG 09/07/2022 5:07 AM CDT [facility] MCHC 33.7 32.0 - 36.0 G/DL 09/07/2022 5:07 AM CDT [facility] RDW 12.4 11.5 - 14.5 % 09/07/2022 5:07 AM CDT [facility] PLT 328 130 - 400 x10'3/uL 09/07/2022 5:07 AM CDT [facility] MPV 11.4 9.3 - 12.2 FL 09/07/2022 5:07 AM CDT [facility] DIFFERENTIAL TYPE AUTOMATED DIFFERENTIAL 09/07/2022 5:28 AM CDT [facility] NEUTROPHILS % 88.4 % 09/07/2022 5:28 AM CDT [facility] LYMPHOCYTES % 9.5 % 09/07/2022 5:28 AM CDT [facility] MONOCYTES % 1.3 % 09/07/2022 5:28 AM CDT [facility] EOSINOPHILS 0.0 % 09/07/2022 5:28 AM CDT [facility] BASOPHILS 0.3 % 09/07/2022 5:28 AM CDT [facility] IMMATURE GRANS % 0.5 % 09/08/19 5:28 AM CDT [facility] ABS. NEUTROPHILS TOTAL 14.08(H) 1.80 - 7.70 x10'3/uL 09/07/2022 5:28 AM CDT [facility] ABS. LYMPHOCYTES 1.52 1.00 - 4.80 x10'3/uL 09/07/2022 5:28 AM CDT [facility] ABS. MONOCYTES 0.21(L) 0.24 - 0.86 x10'3/uL 09/07/2022 5:28 AM CDT [facility] ABS. EOSINOPHILS 0.00(L) 0.04 - 0.36 x10'3/uL 09/07/2022 5:28 AM CDT [facility] ABS. BASOPHILS 0.04 0.01 - 0.08 x10'3/uL 09/07/2022 5:28 AM CDT [facility] ABS. IMMATURE GRANULOCYTES 0.08 0.00 - 0.49 x10'3/uL 09/07/2022 5:28 AM CDT [facility] RBC MORPHOLOGY RBC MORPHOLOGY APPEARS NORMAL. SLIDE REVIEWED. 09/07/2022 5:28 AM CDT [facility] PLT EST. ADEQUATE 09/07/2022 5:28 AM CDT [facility] 09/07/2022 4:40 AM CDT Sofy Carrington MD LABORATORY Final Resul t [facility] [address] [place] [address], [place] [phone] * (ABNORMAL) BASIC METABOLIC PANEL (09/07/2022 4:40 AM CDT) GLUCOSE 315(H) 70 - 99 MG/DL 09/07/2022 5:35 AM CDT [facility] BUN 26(H) 7 - 18 MG/DL 09/07/2022 5:35 AM CDT [facility] CREATININE S/P/B 1.51(H) 0.55 - 1.02 MG/DL 09/07/2022 5:35 AM CDT [facility] SODIUM S/P/B 132(L) 136 - 145 MMOL/L 09/07/2022 5:35 AM CDT [facility] POTASSIUM S/P/B 5.4(H) 3.5 - 5.1 MMOL/L 09/07/2022 5:35 AM CDT [facility] CHLORIDE S/P/B 102 100 - 108 MMOL/L 09/07/2022 5:35 AM CDT [facility] CO2 26.2 21 - 32 MMOL/L 09/07/2022 5:35 AM CDT [facility] CALCIUM S/P/B 9.8 8.5 - 10.1 MG/DL 09/07/2022 5:35 AM CDT [facility] ANION GAP 3.8(L) 5 - 15 MMOL/L 09/07/2022 5:35 AM CDT [facility] BUN CREATININE RATIO 17.2 6 - 26 09/07/2022 5:35 AM CDT [facility] GFR ESTIMATE 42(L) >90 ML/MIN/1.7 3 M2 09/07/2022 5:35 AM CDT [facility] Comment: NOTE: eGFR is not calculated for patients <18 years of age. This is an estimated GFR calculation using the new CKD EPI creatinine equation without race and so does not require a correction factor for race. This estimated GFR should not be used for calculating drug doses. 09/07/2022 4:40 AM CDT us Sofy Carrington MD LABORATORY Final Resul t [facility] [address] [place] [address], [place] [phone] * (ABNORMAL) POCT glucose (09/07/2022 2:15 AM CDT) GLUCOSE POC 259(H) 70 - 99 mg/dL 09/07/2022 2:16 AM CDT [facility] 09/07/2022 2:15 AM CDT Arelis Bermeo MD POCT ORDERABLES - DEVICE Final R esult [facility] [address] [place] [address], [place] [phone] * (ABNORMAL) POCT glucose (09/07/2022 12:20 AM CDT) GLUCOSE POC 374(H) 70 - 99 mg/dL 09/07/2022 12:21 AM CDT [facility] 09/07/2022 12:2 0 AM CDT Arelis Bermeo MD POCT ORDERABLES - DEVICE Final R esult [facility] [address] [place] [address], [place] [phone] * (ABNORMAL) POCT glucose (09/06/2022 8:12 PM CDT) GLUCOSE POC 396(H) 70 - 99 mg/dL 09/06/2022 8:47 PM CDT [facility] 09/06/2022 8:12 PM CDT us Arelis Bermeo MD POCT ORDERABLES - DEVICE Final R esult [facility] [address] [place] [address], [place] [phone] * (ABNORMAL) POCT glucose (09/06/2022 5:16 PM CDT) GLUCOSE POC 330(H) 70 - 99 mg/dL 09/06/2022 5:17 PM CDT [facility] 09/06/2022 5:16 PM CDT us Arelis Bermeo MD POCT ORDERABLES - DEVICE Final R esult [facility] [address] [place] [address], [place] [phone] * (ABNORMAL) POCT glucose (09/06/2022 1:29 PM CDT) GLUCOSE POC 139(H) 70 - 99 mg/dL 09/06/2022 1:34 PM CDT [facility] 09/06/2022 1:29 PM CDT Kirit Yoon MD POCT ORDERABLES - DEVICE Final Result Performing Organization Address City/[facility]/ZIP Co de Phone Number [facility] [address] [place] [address], [place] [phone] * CULTURE, ANAEROBIC (09/06/2022 1:00 PM CDT) SPEC DESCRIPTION TOE,RIGHT 09/06/2022 1:30 PM CDT [facility] SPECIAL REQUESTS R 2ND TOE 09/06/2022 1:30 PM CDT [facility] GRAM STAIN RESULT NO WHITE BLOOD CELLS SEEN 09/07/2022 10:45 AM CDT [facility] GRAM STAIN RESULT RARE RED BLOOD CELLS SEEN 09/07/2022 10:45 AM CDT [facility] GRAM STAIN RESULT NO ORGANISMS SEEN 09/07/2022 10:45 AM CDT [facility] CULTURE RESULT NO GROWTH 5 DAYS 09/11/2022 8:27 AM CDT [facility] CULTURE RESULT NOTE: ANAEROBIC CULTURES ARE ROUTINELY SCREENED FOR BOTH AEROBIC AND ANAEROBIC ORGANISMS. 09/11/2022 8:27 AM CDT [facility] WOUND STRUCTURE OF TOE OF RIGHT FOOT / Unknown 09/06/2022 1:00 PM CDT us Hubert Cummings DPM MICROBIOLOGY - GENERAL OR DERABLES Final Result [facility] [address] [place] [address], [place] [phone] * CULTURE, ANAEROBIC (09/06/2022 12:59 PM CDT) SPEC DESCRIPTION TOE,RIGHT 09/06/2022 1:34 PM CDT [facility] SPECIAL REQUESTS R FIRST TOE 09/06/2022 1:34 PM CDT [facility] GRAM STAIN RESULT NO WHITE BLOOD CELLS SEEN 09/07/2022 10:44 AM CDT [facility] GRAM STAIN RESULT RARE RED BLOOD CELLS SEEN 09/07/2022 10:44 AM CDT [facility] GRAM STAIN RESULT NO ORGANISMS SEEN 09/07/2022 10:44 AM CDT [facility] CULTURE RESULT NO GROWTH 5 DAYS 09/11/2022 8:26 AM CDT [facility] CULTURE RESULT NOTE: ANAEROBIC CULTURES ARE ROUTINELY SCREENED FOR BOTH AEROBIC AND ANAEROBIC ORGANISMS. 09/11/2022 8:26 AM CDT [facility] WOUND STRUCTURE OF TOE OF RIGHT FOOT / Unknown 09/06/2022 12:59 PM CDT us Hubert FERNANDOM MICROBIOLOGY - GENERAL OR DERABLES Final Result Performing Organization Address City/[facility]/ZIP Co de Phone Number [facility] [address] [place] [address], [place] [phone] * (ABNORMAL) POCT glucose (09/06/2022 12:09 PM CDT) GLUCOSE POC 124(H) 70 - 99 mg/dL 09/07/2022 3:04 PM CDT [facility] 09/06/2022 12:0 9 PM CDT us Arelis Bermeo MD POCT ORDERABLES - DEVICE Final R esult Performing Organization Address [facility] Co de Phone Number [facility] [address] [place] [address], [place] [phone] * (ABNORMAL) POCT glucose (09/06/2022 6:23 AM CDT) GLUCOSE POC 180(H) 70 - 99 mg/dL 09/06/2022 6:25 AM CDT [facility] 09/06/2022 6:23 AM CDT us Kirit Yoon MD POCT ORDERABLES - DEVICE Final Result Performing Organization Address City/[facility]/ZIP Co de Phone Number [facility] [address] [place] [address], [place] [phone] * (ABNORMAL) CBC W/DIFF AUTOMATED (09/06/2022 4:54 AM CDT) WBC 7.6 4.5 - 11.0 x10'3/uL 09/06/2022 5:37 AM CDT [facility] RBC 3.58(L) 4.20 - 5.40 x10'6/uL 09/06/2022 5:37 AM CDT [facility] HGB 10.8(L) 12.0 - 16.0 G/DL 09/06/2022 5:37 AM CDT [facility] HCT 32.7(L) 38.0 - 48.0 % 09/06/2022 5:37 AM CDT [facility] MCV 91.3 81.0 - 99.0 FL 09/06/2022 5:37 AM CDT [facility] MCH 30.2 27.0 - 31.0 PG 09/06/2022 5:37 AM CDT [facility] MCHC 33.0 32.0 - 36.0 G/DL 09/06/2022 5:37 AM CDT [facility] RDW 12.8 11.5 - 14.5 % 09/06/2022 5:37 AM CDT [facility] PLT 246 130 - 400 x10'3/uL 09/06/2022 5:37 AM CDT [facility] MPV 11.0 9.3 - 12.2 FL 09/06/2022 5:37 AM CDT [facility] DIFFERENTIAL TYPE AUTOMATED DIFFERENTIAL 09/06/2022 5:37 AM CDT [facility] NEUTROPHILS % 45.4 % 09/06/2022 5:37 AM CDT [facility] LYMPHOCYTES % 47.4 % 09/06/2022 5:37 AM CDT [facility] MONOCYTES % 5.4 % 09/06/2022 5:37 AM CDT [facility] EOSINOPHILS 1.2 % 09/06/2022 5:37 AM CDT [facility] BASOPHILS 0.5 % 09/06/2022 5:37 AM CDT [facility] IMMATURE GRANS % 0.1 % 09/07/19 5:37 AM CDT [facility] ABS. NEUTROPHILS TOTAL 3.44 1.80 - 7.70 x10'3/uL 09/06/2022 5:37 AM CDT [facility] ABS. LYMPHOCYTES 3.59 1.00 - 4.80 x10'3/uL 09/06/2022 5:37 AM CDT [facility] ABS. MONOCYTES 0.41 0.24 - 0.86 x10'3/uL 09/06/2022 5:37 AM CDT [facility] ABS. EOSINOPHILS 0.09 0.04 - 0.36 x10'3/uL 09/06/2022 5:37 AM CDT [facility] ABS. BASOPHILS 0.04 0.01 - 0.08 x10'3/uL 09/06/2022 5:37 AM CDT [facility] ABS. IMMATURE GRANULOCYTES 0.01 0.00 - 0.49 x10'3/uL 09/06/2022 5:37 AM CDT [facility] 09/06/2022 4:54 AM CDT Sofy Carrington MD LABORATORY Final Resul t [facility] [address] [place] [address], * (ABNORMAL) BASIC METABOLIC PANEL (09/06/2022 4:54 AM CDT) GLUCOSE 185(H) 70 - 99 MG/DL 09/06/2022 5:26 AM CDT [facility] BUN 22(H) 7 - 18 MG/DL 09/06/2022 5:26 AM CDT [facility] CREATININE S/P/B 1.17(H) 0.55 - 1.02 MG/DL 09/06/2022 5:26 AM CDT [facility] SODIUM S/P/B 138 136 - 145 MMOL/L 09/06/2022 5:26 AM CDT [facility] POTASSIUM S/P/B 4.0 3.5 - 5.1 MMOL/L 09/06/2022 5:26 AM CDT [facility] CHLORIDE S/P/B 107 100 - 108 MMOL/L 09/06/2022 5:26 AM CDT [facility] CO2 27.5 21 - 32 MMOL/L 09/06/2022 5:26 AM T [facility] CALCIUM S/P/B 8.6 8.5 - 10.1 MG/DL 09/06/2022 5:26 AM CDT [facility] ANION GAP 3.5(L) 5 - 15 MMOL/L 09/06/2022 5:26 AM T [facility] BUN CREATININE RATIO 18.8 6 - 26 09/06/2022 5:26 AM T [facility] GFR ESTIMATE 56(L) >90 ML/MIN/1.7 3 M2 09/06/2022 5:26 AM T [facility] Comment: NOTE: eGFR is not calculated for patients <18 years of age. This is an estimated GFR calculation using the new CKD EPI creatinine equation without race and so does not require a correction factor for race. This estimated GFR should not be used for calculating drug doses. 09/06/2022 4:54 AM CDT us Sofy Carrington MD LABORATORY Final Resul t [facility] [address] [place] [address], * (ABNORMAL) POCT glucose (09/06/2022 12:13 AM CDT) [facility] GLUCOSE POC 246(H) 70 - 99 mg/dL 09/06/2022 12:16 AM CDT [facility] 09/06/2022 12:1 3 AM CDT us Kirit Yoon MD POCT ORDERABLES - DEVICE Final Result [facility] [address] [place] [address], * Pathology (09/06/2022 12:00 AM CDT) [facility] COPATH REPORT ?[facility] ? [address] [facility] ? [place], [place] ??[address] ? [id number] ? Department of Pathology ? Pathology Report ? SURGICAL FINAL REPORT Patient Name: LENA YOUNGBLOOD ? : 1970 (Age: 52) ? Location: [address] Gender: F ?Collected Date: 09/06/2022 Med Rec #: [id number] ?Date Received: 09/06/2022 Date Reported: 09/08/2022 Provider: DIOR VASQUEZP ?KIRIT YOON MD ?HUBERT CUMMINGS DPM Specimen(s) [...] following decalcification. ?? : Billing Fee Code(s): 89881(2), 20628(2) [facility] WOUND STRUCTURE OF TOE OF RIGHT FOOT / Unknown 09/06/2022 12:59 PM CDT Specimen from wound (specimen) STRUCTURE OF TOE OF RIGHT FOOT / Unknown 09/06/2022 1:00 PM CDT us Hubert FERNANDOM PATHOLOGY/CYTOLOGY ORDERA BLES Final Result Performing Organization Address City/[facility]/ZIP Co de Phone Number [facility] [address] [place] [address], [place] [phone] * (ABNORMAL) POCT glucose (09/05/2022 7:29 PM CDT) GLUCOSE POC 214(H) 70 - 99 mg/dL 09/05/2022 7:33 PM CDT [facility] 09/05/2022 7:29 PM CDT us Kirit Yoon MD POCT ORDERABLES - DEVICE Final Result Performing Organization Address City/[facility]/ZIP Co de Phone Number [facility] [address] [place] [address], [place] [phone] * (ABNORMAL) POCT glucose (09/05/2022 4:54 PM CDT) GLUCOSE POC 106(H) 70 - 99 mg/dL 09/05/2022 4:58 PM CDT [facility] 09/05/2022 4:54 PM CDT Kirit Yoon MD POCT ORDERABLES - DEVICE Final Result Performing Organization Address City/[facility]/ZIP Co de Phone Number [facility] [address] [place] [address], * (ABNORMAL) POCT glucose (09/05/2022 12:17 PM CDT) GLUCOSE POC 261(H) 70 - 99 mg/dL 09/05/2022 12:19 PM CDT [facility] 09/05/2022 12:1 7 PM CDT Kirit Yoon MD POCT ORDERABLES - DEVICE Final Result Performing Organization Address City/[facility]/ZIP Co de Phone Number [facility] [address] [place] [address], * LIPASE (09/05/2022 9:56 AM CDT) LIPASE 63 13 - 75 UNITS/L 09/05/2022 10:25 AM CDT [facility] 09/05/2022 9:56 AM CDT Sofy Carrington MD LABORATORY Final Resul t Performing Organization Address City/[facility]/ZIP Co de Phone Number [facility] [address] [place] [address], [place] [phone] * TROPONIN, QUANT (09/05/2022 9:56 AM CDT) TROPONIN I HIGH SENSITIVITY 6 <54 ng/L 09/05/2022 10:42 AM CDT [facility] Comment: HIGH DOSES OF BIOTIN, TROPONIN-SPECIFIC AUTOANTIBODIES, AND ANTIBODY THERAPY CONTAINING HAMA MAY INTERFERE WITH THIS TEST RESULT. CORRELATION TO CLINICAL HISTORY AND PRESENTATION RECOMMENDED. 09/05/2022 9:56 AM CDT Sofy Carrington MD LABORATORY Final Resul t [facility] [address] [place] [address], * (ABNORMAL) BASIC METABOLIC PANEL (09/05/2022 9:56 AM CDT) [facility] GLUCOSE 200(H) 70 - 99 MG/DL 09/05/2022 10:51 AM CDT [facility] BUN 26(H) 7 - 18 MG/DL 09/05/2022 10:51 AM CDT [facility] CREATININE S/P/B 1.41(H) 0.55 - 1.02 MG/DL 09/05/2022 10:51 AM CDT [facility] SODIUM S/P/B 131(L) 136 - 145 MMOL/L 09/05/2022 10:51 AM CDT [facility] POTASSIUM S/P/B 4.9 3.5 - 5.1 MMOL/L 09/05/2022 10:51 AM CDT [facility] Comment:SLIGHT HEMOLYSIS, RE SULT MAY BE AFFECTED. CHLORIDE S/P/B 104 100 - 108 MMOL/L 09/05/2022 10:51 AM CDT [facility] CO2 23.2 21 - 32 MMOL/L 09/05/2022 10:51 AM CDT [facility] CALCIUM S/P/B 9.0 8.5 - 10.1 MG/DL 09/05/2022 10:51 AM CDT [facility] ANION GAP 3.8(L) 5 - 15 MMOL/L 09/05/2022 10:51 AM CDT [facility] BUN CREATININE RATIO 18.4 6 - 26 09/05/2022 10:51 AM CDT [facility] GFR ESTIMATE 45(L) >90 ML/MIN/1.7 3 M2 09/05/2022 10:51 AM CDT [facility] Comment: NOTE: eGFR is not calculated for patients <18 years of age. This is an estimated GFR calculation using the new CKD EPI creatinine equation without race and so does not require a correction factor for race. This estimated GFR should not be used for calculating drug doses. 09/05/2022 9:56 AM CDT Nick Hernandes MD LABORATORY Final Result [facility] [address] [id number], * (ABNORMAL) CBC W/DIFF AUTOMATED (09/05/2022 9:56 AM CDT) WBC 10.9 4.5 - 11.0 x10'3/uL 09/05/2022 10:17 AM CDT [facility] RBC 3.73(L) 4.20 - 5.40 x10'6/uL 09/05/2022 10:17 AM CDT [facility] HGB 11.3(L) 12.0 - 16.0 G/DL 09/05/2022 10:17 AM CDT [facility] HCT 35.5(L) 38.0 - 48.0 % 09/05/2022 10:17 AM CDT [facility] MCV 95.2 81.0 - 99.0 FL 09/05/2022 10:17 AM CDT [facility] MCH 30.3 27.0 - 31.0 PG 09/05/2022 10:17 AM CDT [facility] MCHC 31.8(L) 32.0 - 36.0 G/DL 09/05/2022 10:17 AM CDT [facility] RDW 13.1 11.5 - 14.5 % 09/05/2022 10:17 AM CDT [facility] PLT 285 130 - 400 x10'3/uL 09/05/2022 10:17 AM CDT [facility] MPV 11.3 9.3 - 12.2 FL 09/05/2022 10:17 AM CDT [facility] DIFFERENTIAL TYPE AUTOMATED DIFFERENTIAL 09/05/2022 10:17 AM CDT [facility] NEUTROPHILS % 69.9 % 09/05/2022 10:17 AM CDT [facility] LYMPHOCYTES % 26.0 % 09/05/2022 10:17 AM CDT [facility] MONOCYTES % 2.4 % 09/05/2022 10:17 AM CDT [facility] EOSINOPHILS 0.8 % 09/05/2022 10:17 AM CDT [facility] BASOPHILS 0.5 % 09/05/2022 10:17 AM CDT [facility] IMMATURE GRANS % 0.4 % 09/06/19 10:17 AM CDT [facility] ABS. NEUTROPHILS TOTAL 7.63 1.80 - 7.70 x10'3/uL 09/05/2022 10:17 AM CDT [facility] ABS. LYMPHOCYTES 2.84 1.00 - 4.80 x10'3/uL 09/05/2022 10:17 AM CDT [facility] ABS. MONOCYTES 0.26 0.24 - 0.86 x10'3/uL 09/05/2022 10:17 AM CDT [facility] ABS. EOSINOPHILS 0.09 0.04 - 0.36 x10'3/uL 09/05/2022 10:17 AM CDT [facility] ABS. BASOPHILS 0.05 0.01 - 0.08 x10'3/uL 09/05/2022 10:17 AM CDT [facility] ABS. IMMATURE GRANULOCYTES 0.04 0.00 - 0.49 x10'3/uL 09/05/2022 10:17 AM CDT [facility] 09/05/2022 9:56 AM CDT Nick Hernandes MD LABORATORY Final Result [facility] [address] [place] [address], * ECG 12 lead (09/05/2022 6:59 AM CDT) 09/05/2022 6:59 AM CDT Narrative [facility] - 09/05/2022 8:31 AM CDT ?[facility] ? [address] [place] ? Test Date: ?2022-09-05 Pat Name: ? LENA FORD ?Department: ?? 40 ? Room: ? [id number] Gender: ? Female ? 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 : ?[id number] ? Requested By: KIRIT YOON Order Number: [id number] ? Reading MD: ?? Marvin Mckeon ? Measurements Intervals ?[place] ? Rate: ? 96 ? P: ?44 NV: ? 181 ?QRS: ?16 QRSD: ? 86 ? T: ?45 QT: ? 349 ? QTc: ?441 ? Interpretive Statements SINUS RHYTHM NONSPECIFIC T-WAVE ABNORMALITY Compared to ECG 01/08/2022 18:02:44 Sinus tachycardia no longer present T-wave abnormality still present Procedure Note Marvin Mckeon MD - 09/05/[address] Test Date: 2022-09-05 Pat Name: LENA YOUNGBLOOD Department: 40 Room: 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1970 Requested By: KIRIT YOON Order Number: [id number] Reading MD: Marvin Mckeon Measurements Intervals [place] Rate: 96 P: 44 NV: 181 QRS: 16 QRSD: 86 T: 45 QT: 349 QTc: 441 Interpretive Statements SINUS RHYTHM NONSPECIFIC T-WAVE ABNORMALITY Compared to ECG 01/08/2022 18:02:44 Sinus tachycardia no longer present T-wave abnormality still present us Kirit Yoon MD ECG ORDERABLES Final Re sult Performing Organization Address City/[facility]/ZIP Co de Phone Number [facility] * (ABNORMAL) POCT glucose (09/05/2022 6:05 AM CDT) GLUCOSE POC 193(H) 70 - 99 mg/dL 09/05/2022 6:19 AM CDT [facility] 09/05/2022 6:05 AM CDT Kirit Yoon MD POCT ORDERABLES - DEVICE Final Result Performing Organization Address [facility]/ZIP Co de Phone Number [facility] [address] [place] [address], [place] [phone] * (ABNORMAL) POCT glucose (09/04/2022 8:02 PM CDT) GLUCOSE POC 218(H) 70 - 99 mg/dL 09/04/2022 8:13 PM CDT [facility] 09/04/2022 8:02 PM CDT Kirit Yoon MD POCT ORDERABLES - DEVICE Final Result Performing Organization Address City/State/[facility] Co de Phone Number [facility] [address] [place] [address], [place] [phone] * (ABNORMAL) POCT glucose (09/04/2022 5:27 PM CDT) GLUCOSE POC 126(H) 70 - 99 mg/dL 09/04/2022 5:45 PM CDT [facility] 09/04/2022 5:27 PM CDT Kirit Yoon MD POCT ORDERABLES - DEVICE Final Result Performing Organization Address City/[facility] Co de Phone Number [facility] [address] [place] [address], [place] [phone] * MRI FOOT RT WO CON (09/04/2022 [...] By: Oj Ward DO, 09/04/2022 5:43 PM Sofy Carrington MD MRI Final Resul t * (ABNORMAL) POCT glucose (09/04/2022 12:02 PM CDT) GLUCOSE POC 164(H) 70 - 99 mg/dL 09/04/2022 12:03 PM CDT [facility] 09/04/2022 12:0 2 PM CDT Kirit Yoon MD POCT ORDERABLES - DEVICE Final Result [facility] [address] [place] [id number], * (ABNORMAL) BASIC METABOLIC PANEL (09/04/2022 8:20 AM CDT) GLUCOSE 162(H) 70 - 99 MG/DL 09/04/2022 9:10 AM CDT [facility] BUN 20(H) 7 - 18 MG/DL 09/04/2022 9:10 AM CDT [facility] CREATININE S/P/B 1.09(H) 0.55 - 1.02 MG/DL 09/04/2022 9:10 AM CDT [facility] SODIUM S/P/B 138 136 - 145 MMOL/L 09/04/2022 9:10 AM CDT [facility] POTASSIUM S/P/B 3.7 3.5 - 5.1 MMOL/L 09/04/2022 9:10 AM CDT [facility] CHLORIDE S/P/B 106 100 - 108 MMOL/L 09/04/2022 9:10 AM CDT [facility] CO2 28.1 21 - 32 MMOL/L 09/04/2022 9:10 AM CDT [facility] CALCIUM S/P/B 8.8 8.5 - 10.1 MG/DL 09/04/2022 9:10 AM CDT [facility] ANION GAP 3.9(L) 5 - 15 MMOL/L 09/04/2022 9:10 AM CDT [facility] BUN CREATININE RATIO 18.3 6 - 26 09/04/2022 9:10 AM CDT [facility] GFR ESTIMATE 62(L) >90 ML/MIN/1.7 3 M2 09/04/2022 9:10 AM CDT [facility] Comment: NOTE: eGFR is not calculated for patients <18 years of age. This is an estimated GFR calculation using the new CKD EPI creatinine equation without race and so does not require a correction factor for race. This estimated GFR should not be used for calculating drug doses. 09/04/2022 8:20 AM CDT Nick Hernandes MD LABORATORY Final Result [facility] [address] [place] [address], [place] [phone] * (ABNORMAL) CBC W/DIFF AUTOMATED (09/04/2022 8:20 AM CDT) WBC 8.7 4.5 - 11.0 x10'3/uL 09/04/2022 8:40 AM CDT [facility] RBC 3.84(L) 4.20 - 5.40 x10'6/uL 09/04/2022 8:40 AM CDT [facility] HGB 11.5(L) 12.0 - 16.0 G/DL 09/04/2022 8:40 AM CDT [facility] HCT 34.5(L) 38.0 - 48.0 % 09/04/2022 8:40 AM CDT [facility] MCV 89.8 81.0 - 99.0 FL 09/04/2022 8:40 AM CDT [facility] MCH 29.9 27.0 - 31.0 PG 09/04/2022 8:40 AM CDT [facility] MCHC 33.3 32.0 - 36.0 G/DL 09/04/2022 8:40 AM CDT [facility] RDW 13.0 11.5 - 14.5 % 09/04/2022 8:40 AM CDT [facility] PLT 267 130 - 400 x10'3/uL 09/04/2022 8:40 AM CDT [facility] MPV 11.3 9.3 - 12.2 FL 09/04/2022 8:40 AM CDT [facility] DIFFERENTIAL TYPE AUTOMATED DIFFERENTIAL 09/04/2022 8:40 AM CDT [facility] NEUTROPHILS % 50.5 % 09/04/2022 8:40 AM CDT [facility] LYMPHOCYTES % 42.8 % 09/04/2022 8:40 AM CDT [facility] MONOCYTES % 4.8 % 09/04/2022 8:40 AM CDT [facility] EOSINOPHILS 1.1 % 09/04/2022 8:40 AM CDT [facility] BASOPHILS 0.6 % 09/04/2022 8:40 AM CDT [facility] IMMATURE GRANS % 0.2 % 09/05/19 8:40 AM CDT [facility] ABS. NEUTROPHILS TOTAL 4.39 1.80 - 7.70 x10'3/uL 09/04/2022 8:40 AM CDT [facility] ABS. LYMPHOCYTES 3.72 1.00 - 4.80 x10'3/uL 09/04/2022 8:40 AM CDT [facility] ABS. MONOCYTES 0.42 0.24 - 0.86 x10'3/uL 09/04/2022 8:40 AM CDT [facility] ABS. EOSINOPHILS 0.10 0.04 - 0.36 x10'3/uL 09/04/2022 8:40 AM CDT [facility] ABS. BASOPHILS 0.05 0.01 - 0.08 x10'3/uL 09/04/2022 8:40 AM CDT [facility] ABS. IMMATURE GRANULOCYTES 0.02 0.00 - 0.49 x10'3/uL 09/04/2022 8:40 AM CDT [facility] 09/04/2022 8:20 AM CDT us Nick Hernandes MD LABORATORY Final Result [place] [id number], [place] [phone] * (ABNORMAL) POCT glucose (09/03/2022 9:14 PM CDT) [facility] GLUCOSE POC 210(H) 70 - 99 mg/dL 09/03/2022 9:15 PM CDT [facility] 09/03/2022 9:14 PM CDT us Kirit Yoon MD POCT ORDERABLES - DEVICE Final Result [address] [place] [address], [place] [phone] * LACTIC ACID (09/03/2022 7:48 PM CDT) [facility] LACTIC ACID VENOUS 1.5 0.4 - 2.0 MMOL/L 09/03/2022 8:17 PM CDT [facility] 09/03/2022 7:48 PM CDT Dior Maldonado [facility] LABORATORY Final Resul t [facility] [address] [place] [address], [place] [phone] * CULTURE, BACTERIA, BLOOD (09/03/2022 7:48 PM CDT) [facility] SPEC DESCRIPTION BLOOD 09/03/2022 1:30 PM CDT [facility] SPECIAL REQUESTS NO SPECIAL REQUEST 09/03/2022 1:30 PM CDT [facility] CULTURE RESULT NO GROWTH 5 DAYS 09/08/2022 8:32 AM CDT [facility] BLOOD SPECIMEN OBTAINED FOR BLOOD CULTURE / Unknown 09/03/2022 7:48 PM CDT 09/03/2022 7:55 PM CDT Dior VASQUEZP MICROBIOLOGY - GENERAL ORDE RABLES Final Result [facility] [address] [place] [address], [place] [phone] * CULTURE, BACTERIA, BLOOD (09/03/2022 7:36 PM CDT) Pathologist [facility] SPEC DESCRIPTION BLOOD 09/03/2022 1:30 PM CDT [facility] SPECIAL REQUESTS NO SPECIAL REQUEST 09/03/2022 1:30 PM CDT [facility] CULTURE RESULT NO GROWTH 5 DAYS 09/08/2022 8:32 AM CDT [facility] BLOOD SPECIMEN OBTAINED FOR BLOOD CULTURE / Unknown 09/03/2022 7:36 PM CDT 09/03/2022 7:56 PM CDT Dior Maldonado ELECTRICAL HARDWARE ENGINEER MICROBIOLOGY - GENERAL ORDE [facility] Final Result [facility] [address] [place] [address], [place] [phone] * (ABNORMAL) C-REACTIVE PROTEIN (09/03/2022 2:54 PM CDT) C-REACTIVE PROTEIN 1.99(H) <0.29 mg/dL 09/03/2022 3:44 PM CDT [facility] 09/03/2022 2:54 PM CDT Dior Maldonado [facility] LABORATORY Final Resul t [facility] [address] [place] [address], [place] [phone] * (ABNORMAL) COMPREHENSIVE METABOLIC PANEL (09/03/2022 2:54 PM CDT) GLUCOSE 230(H) 70 - 99 MG/DL 09/03/2022 3:44 PM CDT [facility] BUN 18 7 - 18 MG/DL 09/03/2022 3:44 PM CDT [facility] CREATININE S/P/B 1.18(H) 0.55 - 1.02 MG/DL 09/03/2022 3:44 PM CDT [facility] SODIUM S/P/B 135(L) 136 - 145 MMOL/L 09/03/2022 3:44 PM CDT [facility] POTASSIUM S/P/B 3.9 3.5 - 5.1 MMOL/L 09/03/2022 3:44 PM CDT [facility] Comment:SLIGHT HEMOLYSIS, RE SULT MAY BE AFFECTED. CHLORIDE S/P/B 104 100 - 108 MMOL/L 09/03/2022 3:44 PM CDT [facility] CO2 28.6 21 - 32 MMOL/L 09/03/2022 3:44 PM CDT [facility] CALCIUM S/P/B 9.3 8.5 - 10.1 MG/DL 09/03/2022 3:44 PM CDT [facility] BILIRUBIN TOTAL S/P/B 0.3 0.2 - 1.2 MG/DL 09/03/2022 3:44 PM CDT [facility] Comment: THIS ASSAY IS NOT RECOMMENDED FOR PATIENTS UNDERGOING TREATMENT WITH ELTROMBOPAG DUE TO THE POTENTIAL FOR FALSELY ELEVATED RESULTS. TOTAL PROTEIN S/P/B 8.8(H) 6.4 - 8.2 G/DL 09/03/2022 3:44 PM CDT [facility] ALBUMIN S/P/B 3.4 3.4 - 5.0 G/DL 09/03/2022 3:44 PM CDT [facility] AST 21 15 - 37 U/L 09/03/2022 3:44 PM CDT [facility] Comment:SLIGHT HEMOLYSIS, RE SULT MAY BE AFFECTED. ALT 23 14 - 55 U/L 09/03/2022 3:44 PM CDT [facility] ALKALINE PHOSPHATASE S/P/B 134 50 - 136 U/L 09/03/2022 3:44 PM CDT [facility] ANION GAP 2.4(L) 5 - 15 MMOL/L 09/03/2022 3:44 PM CDT [facility] BUN CREATININE RATIO 15.3 6 - 26 09/03/2022 3:44 PM CDT [facility] A/G RATIO 0.6(L) 1.0 - 2.0 RATIO 09/03/2022 3:44 PM CDT [facility] GFR ESTIMATE 56(L) >90 ML/MIN/1.7 3 M2 09/03/2022 3:44 PM CDT [facility] Comment: NOTE: eGFR is not calculated for patients <18 years of age. This is an estimated GFR calculation using the new CKD EPI creatinine equation without race and so does not require a correction factor for race. This estimated GFR should not be used for calculating drug doses. 09/03/2022 2:54 PM CDT Dior Maldonado ELECTRICAL HARDWARE ENGINEER LABORATORY Final Resul t [facility] [address] [place] [address], * (ABNORMAL) CBC W/DIFF AUTOMATED (09/03/2022 2:54 PM CDT) WBC 10.4 4.5 - 11.0 x10'3/uL 09/03/2022 3:18 PM CDT [facility] RBC 4.08(L) 4.20 - 5.40 x10'6/uL 09/03/2022 3:18 PM CDT [facility] HGB 12.3 12.0 - 16.0 G/DL 09/03/2022 3:18 PM CDT [facility] HCT 36.7(L) 38.0 - 48.0 % 09/03/2022 3:18 PM CDT [facility] MCV 90.0 81.0 - 99.0 FL 09/03/2022 3:18 PM CDT [facility] MCH 30.1 27.0 - 31.0 PG 09/03/2022 3:18 PM CDT [facility] MCHC 33.5 32.0 - 36.0 G/DL 09/03/2022 3:18 PM CDT [facility] RDW 12.8 11.5 - 14.5 % 09/03/2022 3:18 PM CDT [facility] PLT 291 130 - 400 x10'3/uL 09/03/2022 3:18 PM CDT [facility] MPV 11.5 9.3 - 12.2 FL 09/03/2022 3:18 PM CDT [facility] DIFFERENTIAL TYPE AUTOMATED DIFFERENTIAL 09/03/2022 3:18 PM CDT [facility] NEUTROPHILS % 62.9 % 09/03/2022 3:18 PM CDT [facility] LYMPHOCYTES % 31.6 % 09/03/2022 3:18 PM CDT [facility] MONOCYTES % 3.9 % 09/03/2022 3:18 PM CDT [facility] EOSINOPHILS 0.7 % 09/03/2022 3:18 PM CDT [facility] BASOPHILS 0.6 % 09/03/2022 3:18 PM CDT [facility] IMMATURE GRANS % 0.3 % 09/04/19 3:18 PM CDT [facility] ABS. NEUTROPHILS TOTAL 6.55 1.80 - 7.70 x10'3/uL 09/03/2022 3:18 PM CDT [facility] ABS. LYMPHOCYTES 3.29 1.00 - 4.80 x10'3/uL 09/03/2022 3:18 PM CDT [facility] ABS. MONOCYTES 0.41 0.24 - 0.86 x10'3/uL 09/03/2022 3:18 PM CDT [facility] ABS. EOSINOPHILS 0.07 0.04 - 0.36 x10'3/uL 09/03/2022 3:18 PM CDT [facility] ABS. BASOPHILS 0.06 0.01 - 0.08 x10'3/uL 09/03/2022 3:18 PM CDT [facility] ABS. IMMATURE GRANULOCYTES 0.03 0.00 - 0.49 x10'3/uL 09/03/2022 3:18 PM CDT [facility] 09/03/2022 2:54 PM CDT Dior Maldonado [facility] LABORATORY Final Resul t Performing Organization Address [facility] Co de Phone Number [facility] [address] [place] [address], [place] [phone] * CULTURE URINE (09/03/2022 2:52 PM CDT) SPEC DESCRIPTION URINE CLEAN CATCH 09/03/2022 3:20 PM CDT [facility] SPECIAL REQUESTS NO SPECIAL REQUEST 09/03/2022 3:20 PM CDT [facility] CULTURE RESULT NO GROWTH 2 DAYS 09/05/2022 8:38 AM CDT [facility] URINE SPECIMEN OBTAINED BY CLEAN CATCH PROCEDURE / Unknown 09/03/2022 2:52 PM CDT 09/03/2022 3:19 PM CDT us Dior Maldonado [facility] MICROBIOLOGY - GENERAL ORDE RABLES Final Result [facility] [address] [place] [address], [place] [phone] * (ABNORMAL) URINALYSIS (09/03/2022 2:52 PM CDT) SPECIMEN TYPE URINE CLEAN CATCH 09/03/2022 2:53 PM CDT [facility] COLOR (U) LIGHT YELLOW 09/03/2022 3:19 PM CDT [facility] TRANSPARENCY TURBID 09/03/2022 3:19 PM CDT [facility] SPECIFIC GRAVITY (U) 1.016 1.001 - 1.030 09/03/2022 3:19 PM CDT [facility] U PH 5.5 5.0 - 9.0 09/03/2022 3:19 PM CDT [facility] LEUKOCYTES (U) NEGATIVE NEGATIVE 09/03/2022 3:19 PM CDT [facility] NITRITES NEGATIVE NEGATIVE 09/03/2022 3:19 PM CDT [facility] PROTEIN (U) 100(H) <30 MG/DL 09/03/2022 3:19 PM CDT [facility] GLUCOSE (U) 100(A) NORMAL MG/DL 09/03/2022 3:19 PM CDT [facility] KETONES MG/DL (U) NEGATIVE NEGATIVE MG/DL 09/03/2022 3:19 PM CDT [facility] UROBILINOGEN NORMAL NORMAL MG/DL 09/03/2022 3:19 PM CDT [facility] BILIRUBIN (U) NEGATIVE NEGATIVE MG/DL 09/03/2022 3:19 PM CDT [facility] BLOOD (U) TRACE(A) NEGATIVE 09/03/2022 3:19 PM CDT [facility] CULTURE & SENSITIVITY INDICATED? SPECIMEN SETUP FOR CULTURE 09/03/2022 3:19 PM CDT [facility] MUCUS RARE /LPF 09/03/2022 3:19 PM CDT [facility] WBC/HPF 7(H) <6 /HPF 09/03/2022 3:19 PM CDT [facility] RBC/HPF 2 <6 /HPF 09/03/2022 3:19 PM CDT [facility] BACTERIA (U) MODERATE(A) NONE /HPF 09/03/2022 3:19 PM CDT [facility] SQUAMOUS EPITHELIALS FEW /HPF 09/03/2022 3:19 PM CDT [facility] URINE SPECIMEN OBTAINED BY CLEAN CATCH PROCEDURE / Unknown 09/03/2022 2:52 PM CDT us Dior Maldonado [employer]LECT[employer] HARDWARE ENGINEER URINE ORDERABLES Final Resu lt [facility] [address] [place] [address], [place] [phone] * XR FOOT RT 3V (09/03/2022 2:39 [...] By: Arley Gastelum MD, 09/03/2022 2:40 PM Dior Maldonado [facility] GENERAL IMAGING Final Resul t * (ABNORMAL) SED RATE, ERYTHROCYTE (ESR) (09/03/2022 1:30 PM CDT) ESR 76(H) <30 MM/HR 09/03/2022 3:42 PM CDT [facility] Comment:Testing performed on [employer] iSED. 09/03/2022 1:30 PM CDT Dior Maldonado [facility] LABORATORY Final Resul t [facility] [address] [place] [address], [place] [phone] documented in this encounter Visit Diagnoses Diagnosis Soft tissue infection of foot- Primary Unspecified local infection of skin and subcutaneous tissue Toe necrosis (CMS/HCC HHS/HCC) Other specified disorder of skin Diabetic foot infection (CMS/HCC HHS/HCC) Type II or unspecified type diabetes mellitus with other specified manifestations, not stated as uncontrolled Primary hypertension Unspecified essential hypertension Necrotic toes ([facility]/HCC HHS/HCC) Gangrene documented in this encounter Admitting Diagnoses Diagnosis Soft tissue infection of foot Unspecified local infection of skin and subcutaneous tissue Necrotic toes ([facility]/HCC HHS/HCC) Gangrene documented in this encounter Administered [...] dose on 09/03/22 at 2100, Until Discontinued Given 09/08/2022 7:58 PM CDT 10 mg Given 09/07/2022 9:35 PM CDT 10 mg Given 09/06/2022 8:19 PM CDT 10 mg atorvastatin (LIPITOR) tablet 20 mg 20 mg, Oral, Nightly at bedtime, First dose on 09/03/22 at 2100, Until Discontinued Given 09/08/2022 7:58 PM CDT 20 m g Given 09/07/2022 9:35 PM CDT 20 mg Given 09/06/2022 8:19 PM CDT 20 mg cefTRIAXone (ROCEPHIN) 1 g in sodium chloride 0.9 % 50 mL IVPB 1 g, Intravenous, at 100 mL/hr, Every 24 hours, First dose on 09/03/22 at 1715, Until Discontinued New Bag 09/04/2022 5:22 PM CDT 1 g 100 mL /hr New Bag 09/03/2022 7:55 PM CDT 1 g 100 mL/hr diphenhydrAMINE (BENADRYL) capsule 25 mg 25 mg, Oral, Every 4 hours PRN, Allergies, Itching, Starting on 09/03/22 at 1708, Until 09/09/22 at 1350 enoxaparin [...] 09/09/22 at 1350 insulin glargine (LANTUS) injection 11 Units 11 Units (rounded from 10.7 Units = 0.125 Units/kg ? 85.6 kg), Subcutaneous, Nightly at bedtime, First dose on Sun09/03/22 at 2100, Until Discontinued Given 09/04/2022 8:10 PM CDT 11 Units Right Lower Abdomen Given 09/03/2022 10:25 PM CDT 11 Units L eft Arm insulin glargine (LANTUS) injection 13 Units 13 Units, Subcutaneous, Nightly at bedtime, First dose (after last modification) on Sun09/05/22 at 2100, Until Discontinued Given 09/05/2022 8:28 PM CDT 13 Units Right Arm insulin glargine (LANTUS) injection 20 Units 20 Units, Subcutaneous, Nightly at bedtime, First dose (after last modification) on Sun09/06/22 at 2100, Until Discontinued Given 09/06/2022 8:20 PM CDT 20 Units Right Lower Abdomen insulin glargine (LANTUS) injection 30 Units 30 Units, Subcutaneous, Nightly at bedtime, First dose (after last modification) on Sun09/07/22 at 2100, Until Discontinued Given 09/08/2022 8:01 PM CDT 30 Units Left Arm Given 09/07/2022 9:36 PM CDT 30 Units Ri ght Lower Abdomen insulin lispro (HUMALOG) injection 0-14 Units 0-14 Units, Subcutaneous, 3 times daily before meals, First dose on Sun09/03/22 at 1745, Until Discontinued, Blood Glucose (SENSITIVE Dosing): [Less than 70:? Initiate Hypoglycemia Standing Orders] [71-140: 0 units] [141-180: 2 units] [181-220: 4 units] [221-260: 6 units] [261-300: 8 units] [301-350: 10 units] [351-400: 12 units] [Greater than 400: 14 units and Call Physician] Given 09/04/2022 2:03 PM CDT 2 Units Left Upper Abdomen Given 09/04/2022 9:33 AM CDT 2 Units Le ft Upper Abdomen insulin lispro (HUMALOG) injection 0-16 Units 0-16 [...] 400:? 16 units and Call Physician] Given 09/07/2022 8:59 AM CDT 10 Units Left Arm Given 09/06/2022 5:30 PM CDT 12 Units Le ft Arm Given 09/05/2022 12:26 PM CDT 10 Units R ight Arm insulin lispro (HUMALOG) injection 0-16 Units 0-16 Units, Subcutaneous, Once, 1 dose, On Sun09/05/22 at 0745, Blood Glucose (USUAL Dosing): [Less than 70:? Initiate Hypoglycemia Standing Orders] [71-140: ? 0 units] [141-180:? 4 units] [181-220:? 6 units] [221-260:? 8 units] [261-300:? 10 units] [301-350:? 12 units] [351-400:? 14 units] [Greater than 400:? 16 units and Call Physician] Given 09/05/2022 9:07 AM CDT 6 Units Left Arm insulin lispro (HUMALOG) injection 0-18 Units 0-18 [...] ft Lower Abdomen insulin lispro (HUMALOG) injection 0-7 Units 0-7 Units, Subcutaneous, Nightly at bedtime, First dose on Sun09/03/22 at 2100, Until Discontinued, Blood Glucose (SENSITIVE Dosing): [Less than 70:? Initiate Hypoglycemia Standing Orders] [71-180: ? 0 units] [181-220:? 2 units] [221-260:? 3 units] [261-300:? 4 units] [301-350:? 5 units] [351-400:? 6 units] [Greater than 400:? 7 units and Call Physician] Given 09/04/2022 8:10 PM CDT 2 Units Right Lower Abdomen Given 09/03/2022 10:32 PM CDT 2 Units L eft Arm insulin lispro (HUMALOG) injection 0-8 Units 0-8 Units, Subcutaneous, Nightly at bedtime, First dose on Sun09/05/22 at 2100, Until Discontinued, Blood Glucose (USUAL Dosing): [Less than 70:? Initiate Hypoglycemia Standing Orders] [71-180:? 0 units] [181-220:? 3 units] [221-260:? 4 units] [261-300:? 5 units] [301-350:? 6 units] [351-400:? 7 units] [Greater than 400:? 8 units and Call Physician] Given 09/06/2022 8:21 PM CDT 7 Units Right Lower Abdomen Given 09/05/2022 8:29 PM CDT 3 Units Ri ght Arm insulin lispro (HUMALOG) injection 0-9 Units 0-9 [...] PM CDT 10 Units Le ft Arm insulin lispro (HUMALOG) injection 3 Units 3 Units (rounded from 2.996 Units = 0.035 Units/kg ? 85.6 kg), Subcutaneous, 3 times daily before meals, First dose on Sun09/03/22 at 1900, Until Discontinued, Administer with first bite of meal. HOLD if NPO or Clear Liquids. Given 09/04/2022 2:04 PM CDT 3 Units Left Upper Abdomen Given 09/04/2022 9:33 AM CDT 3 Units Le ft Upper Abdomen insulin lispro (HUMALOG) injection 4 Units 4 Units, Subcutaneous, 3 times daily before meals, First dose (after last modification) on Sun09/05/22 at 1100, Until Discontinued, Administer with first bite of meal. HOLD if NPO or Clear Liquids. Given 09/05/2022 12:26 PM CDT 4 Units Righ t Arm insulin lispro (HUMALOG) injection 4 Units 4 Units, Subcutaneous, Once, 1 dose, On Sun09/05/22 at 0745, Administer with first bite of meal. HOLD if NPO or Clear Liquids. Given 09/05/2022 9:09 AM CDT 4 Units Left Arm insulin lispro (HUMALOG) injection 6 Units 6 Units, Subcutaneous, 3 times daily before meals, First dose (after last modification) on Sun09/06/22 at 1600, Until Discontinued, Administer with first bite of meal. HOLD if NPO or Clear Liquids. Given 09/07/2022 8:58 AM CDT 6 Units Left Arm Given 09/06/2022 5:30 PM CDT 6 Units Le ft Arm insulin NPH (HUMULIN N) injection 20 Units 20 Units, Subcutaneous, Once, 1 dose, On Sun09/07/22 at 1230 Given 09/07/2022 1:59 PM CDT 20 Units Left Arm insulin regular (NOVOLIN R/HUMULIN R) injection 10 Units 10 Units, Subcutaneous, Once, 1 dose, On Sun09/07/22 at 1815, For sliding scale, activate Sliding Scale Insulin order set. Given 09/07/2022 6:17 PM CDT 10 Units Left Arm ketorolac (TORADOL) injection 15 mg 15 mg, Intravenous, Once, 1 dose, On Sun09/08/22 at 1630, For IV administration, give over 15 seconds. Given 09/08/2022 4:10 PM CDT 15 mg lisinopril (PRINIVIL) tablet 20 mg 20 mg, Oral, Every evening, First dose (after last modification) on Sun09/04/22 at 2100, Until DiscontinuedIndications:hypertension Given 09/08/2022 7:59 PM CDT 20 mg Given 09/07/2022 9:36 PM CDT 20 mg Given 09/06/2022 8:20 PM CDT 20 mg lisinopril (PRINIVIL) tablet 40 mg 40 mg, Oral, Daily, First dose on Sun09/03/22 at 1800, Until DiscontinuedIndications:hypertension Given 09/03/2022 10:41 PM CDT 40 mg morphine injection 1 mg 1 mg, Intravenous, Every 4 hours PRN, Severe pain (Scale 8 - 10), Starting on Sun09/03/22 at 1927, Until Sun09/04/22 at 1329 Given 09/03/2022 7:56 PM CDT 1 mg nitrofurantoin (macrocrystal-monohydrate) (MACROBID) capsule 100 mg 100 mg, Oral, Every 12 hours scheduled (2 times per day), 6 doses, First dose on Sun09/05/22 at 1030, Last dose on Sun09/07/22 at 2100 Given 09/07/2022 9:35 PM CDT 100 mg Given 09/07/2022 8:58 AM CDT 100 mg Given 09/06/2022 8:19 PM CDT 100 mg ondansetron (ZOFRAN) injection 4 mg 4 mg, Intravenous, Every 8 hours PRN, Nausea, Starting on Sun09/05/22 at 0623, Until 09/09/22 at 1350, IV push over 2-5 minutes. Given 09/05/2022 6:28 AM CDT 4 mg ondansetron (ZOFRAN-ODT) disintegrating tablet 4 mg 4 mg, Oral, Every 8 hours PRN, Nausea, Starting on Sun09/03/22 at 1746, Until Sun09/05/22 at 0623 Given 09/03/2022 7:27 PM CDT 4 mg oxyCODONE immediate release (ROXICODONE) tablet 10 mg 10 mg, Oral, Every 6 hours PRN, Severe pain (Scale 8 - 10), Starting on Viky 09/07/22 at 1234, Until 09/09/22 at 1350 Given 09/08/2022 12:30 AM CDT 10 mg Given 09/07/2022 4:35 PM CDT 10 mg oxyCODONE immediate release (ROXICODONE) tablet 5 mg 5 mg, Oral, Every 4 hours PRN, Severe pain (Scale 8 - 10), Starting on Sun09/04/22 at 1330, Until Viky 09/07/22 at 1234 Given 09/07/2022 2:08 AM CDT 5 mg Given 09/06/2022 8:19 PM CDT 5 mg Given 09/05/2022 11:22 PM CDT 5 mg oxyCODONE immediate release (ROXICODONE) tablet 5 [...] Given 09/04/2022 8:16 PM CDT 17 g sodium chloride 0.9% bolus infusion 1,000 mL 1,000 mL, Intravenous, Administer over 60 Minutes, Once, 1 dose, On 09/05/22 at 1245 New Bag 09/05/2022 2:59 PM CDT 1,000 mLs sodium chloride 0.9% bolus infusion 1,000 mL 1,000 mL, Intravenous, Administer over 60 Minutes, Once, 1 dose, On Viky 09/07/22 at 1230 New Bag 09/07/2022 12:34 PM CDT 1,000 mLs traMADol (ULTRAM) tablet 50 mg 50 mg, Oral, Every 6 hours PRN, Moderate pain (Scale 4 - 7), Starting on 09/03/22 at 1757, Until Viky 09/07/22 at 1234 Given 09/04/2022 6:29 AM CDT 50 mg Given 09/03/2022 10:24 PM CDT 50 mg documented in this encounter Active and Recently Administered Medications Times are shown in CDT. Scheduled Medication Order 09/07/2022 09/08/2022 09/09/2022 amLODIPine (NORVASC) tablet 10 mg 10 mg, Oral, Nightly at bedtime, First dose on 09/03/22 at 2100, Until Discontinued 2134 (Given - Provider: Evna Fang RN) 1957 (Given - Provider: Maximo Ramirez, DEANDRE) atorvastatin (LIPITOR) tablet 20 mg 20 mg, Oral, Nightly at bedtime, First dose on 09/03/22 at 2100, Until Discontinued 2134 (Given - Provider: Evan Fang RN) 1957 (Given - Provider: Maximo Ramirez, DEANDRE) enoxaparin (LOVENOX) 40 MG/0.4ML syringe 40 mg(Linked Group 1) 40 mg, Subcutaneous, Nightly (enoxaparin), First dose on 09/03/22 at 2100, Until Discontinued, Administer by deep SubQ injection alternating between the left or right anterolateral and left or right posterolateral abdominal wall. 2135 (Given - Provider: Evan Fang RN) 2000 (Given - Provider: Maximo Ramirez, DEANDRE) famotidine (PEPCID) tablet 20 mg 20 mg, Oral, Every 12 hours scheduled (2 times per day), First dose (after last modification) on Sun09/05/22 at 1100, Until Discontinued 857 (Given - Provider: Ivon Jerez RN)2134 (Given - Provider: Evan Fang RN) 930 (Given - Provider: Candido Mathews DEANDRE)1958 (Given - Provider: Maximo Ramirez, DEANDRE) 906 (Given - Provider: Candido Mathews RN) hydrOXYzine (ATARAX) tablet 25 mg 25 mg, Oral, Nightly at bedtime, First dose on Sun09/03/22 at 2100, Until Discontinued 2134 (Given - Provider: Evan Fang, RN) 1958 (Given - Provider: Maximo Ramirez, DEANDRE) insulin glargine (LANTUS) injection 30 Units(Linked Group 2) 30 Units, Subcutaneous, Nightly at bedtime, First dose (after last modification) on Sun09/07/22 at 2100, Until Discontinued 2135 (Given - Provider: Evan Fang, RN) 2000 (Given - Provider: Maximo Ramirez [...] than 400:? 16 units and Call Physician] 0859 (Given - Provider: Ivon Jerez, RN)1852 (Canceled Entry - Provider: Ivon Jerez, RN) insulin lispro (HUMALOG) injection 0-18 Units(Linked [...] RN) 0733 (Not Given - Provider: Candido Mathews, DEANDRE - Reason: Order parameters not met)1329 (Given - Provider: Candido Mathews, DEANDRE)1757 (Given - Provider: Candido Mathews, DEANDRE) 0908 (Not Given - Provider: Candido Mathews [...] Call Physician] 2134 (Given - Provider: Evan Fang RN) 2009 (Given - Provider: Maximo Ramirez RN) insulin lispro (HUMALOG) injection 10 Units(Linked Group 2) 10 Units, Subcutaneous, 3 times daily before meals, First dose (after last modification) on Viky 09/07/22 at 1600, Until Discontinued, Administer with first bite of meal. HOLD if NPO or Clear Liquids. 1638 (Given - Provider: Ivon Jerez RN) 0930 (Given - Provider: Candido Mtahews, DEANDRE)1329 (Given - Provider: Candido Mathews, DEANDRE)1757 (Given - Provider: Candido Mathews RN) 0907 (Given - Provider: Candido Mathews RN)1100 (Canceled Entry - Provider: Automatic Discharge [...] Ivon Jerez RN)1853 (Canceled Entry - Provider: Ivon Jerez RN) insulin NPH (HUMULIN N) injection 20 Units (COMPLETED) 20 Units, Subcutaneous, Once, 1 dose, On Sun09/07/22 at 1230 1359 (Given - Provider: Ivon Jerez RN) insulin regular (NOVOLIN R/HUMULIN R) injection 10 Units (COMPLETED) 10 Units, Subcutaneous, Once, 1 dose, On Sun09/07/22 at 1815, For sliding scale, activate Sliding Scale Insulin order set. 181 (Given - Provider: Ivon Jerez RN) ketorolac (TORADOL) injection 15 mg (COMPLETED) 15 mg, Intravenous, Once, 1 dose, On Sun09/08/22 at 1630, For IV administration, give over 15 seconds. 1610 (Given - Provider: Candido Mathews RN) lisinopril (PRINIVIL) tablet 20 mg 20 mg, Oral, Every evening, First dose (after last modification) on Sun09/04/22 at 2100, Until Discontinued 2135 (Given - Provider: Evan Fang RN) 195 (Given - Provider: Maximo Ramirez RN) morphine injection 1 mg 1 mg, Intravenous, Once, 1 dose, On Sun09/07/22 at 0300 0514 (Not Given - Provider: Evan Fang, DEANDRE - Reason: Patient sleeping) nitrofurantoin (macrocrystal-monohydrat e) (MACROBID) capsule 100 mg (COMPLETED) 100 mg, Oral, Every 12 hours scheduled (2 times per day), 6 doses, First dose on Sun09/05/22 at 1030, Last dose on Sun09/07/22 at 2100 0858 (Given - Provider: Ivon R Solitario, RN)2135 (Given - Provider: Evan Fang, DEANDRE) sodium chloride 0.9% bolus infusion 1,000 mL (COMPLETED) 1,000 mL, Intravenous, Administer over 60 Minutes, Once, 1 dose, On Viky 09/07/22 at 1230 1234 (New Bag - Provider: Ivon Jerez, RN)1330 (Infusion Stop Time - Provider: Ivon Jerez, RN) Continuous Medication Order 09/07/2022 09/08/2022 09/09/2022 lactated ringers infusion at 10 mL/hr, Intravenous, Continuous, Starting on 09/06/22 at 1245, Until 09/09/22 at 1350, Infuse [...] Low blood sugar, 1 dose, Starting on Sun09/03/22 at 1744, Until 09/09/22 at 1350, If patient is verbally UNresponsive and no IV access with blood glucose less than 70 mg/dL. Do NOT repeat administration. glucose oral gel 32-64 mL 32-64 mL (15-30 g of dextrose), Oral, As needed, Low blood sugar, Starting on Sun09/03/22 at 1744, Until 09/09/22 [...] Sun09/05/22 at 0652, Until 09/09/22 at 1350 ondansetron [...] Jerez RN) 0030 (Given - Provider: Evan Fang, DEANDRE) oxyCODONE immediate release (ROXICODONE) tablet 5 mg (CANCELED) 5 mg, Oral, Every 4 hours PRN, Severe pain (Scale 8 - 10), Starting on Sun09/04/22 at 1330, Until Viky 09/07/22 at 1234 0208 (Given - Provider: Evan Fang, DEANDRE) oxyCODONE immediate release (ROXICODONE) tablet 5 mg [...] daily PRN, Pain, Urinary discomfort, Starting on e 09/05/22 at 1039, Until 09/09/22 at 1350, [...] Depression Total Score: 0 03/08/19 9:30 AM CLINICAL ACCOUNT SPECIALIST documented as of this encounter Care Teams Lead Simulation Modeling Engineer Relationship Specialty Start Date End Date Yasmin Segura II, MD [address] [place] [address] PCP - General FAMILY PRACTICE 03/09/21 [place] [address] [place] [address] PODIATRY/SURGERY 05/05/22 documented as of this encounter
--- OUTSIDE RECORDS SUMMARY | 2024-03-02 22:25 | XMS_ITS | Encounter Summary ---
Author Organization [facility] Address [address] [place] [address]. [place] [address] [place] [address] Care Team Providers Care Mixing Engineer Name Role Phone Colton SILVEIRA MD, Abiodun Rushing Primary Care Provider Reason for Visit * Reason Onset Date Comments Information 04/21/2022 Medication Request 04/21/2022 Encounter Details Date Type Department Care Team (Late st Contact Info) Description 04/21/2022 Telephone [facility] Family Medicine - [place] [address] [place] [address] Abiodun Segura II, MD [address] [place] [address] Information; Medication Request Social History Tobacco Use Types [...] Coronavirus/COVID-19? No / Unsure 04/04/2022 11:24 AM AMPHIBIAN CREWMEMBER documented as of this encounter Functional Status [...] Status No 12/17/2021 2:10 AM CDT Amanda Qursehi RN Active * Because of a physical, [...] Date Author Status No 12/17/2021 2:10 AM CDT Amanda Qureshi RN Active documented in this encounter Progress Notes * Sydney Cobos MA - 04/24/2022 11:01 AM CST Patient was informed IBIAN CREWMEMBER * Sydney Cobos MA - 04/21/2022 1:08 PM CST Please advise/Pharmacy sent over the same request today IBIAN CREWMEMBER * Debra Jess Cruz - 04/21/2022 11:19 AM CST [facility] called in stating that they are needing authorization for the following medication. TRULICITY 3MG (is on back order) Pen-Injector. Patient wants to know if she can do TRUCLICITY 1.5 instead of 3 and do two shots a day. IBIAN CREWMEMBER documented in this encounter Plan of Treatment Upcoming Encounters Date Type Department Care Team (Late st Contact Info) Description 03/14/2024 11:45 AM AMPHIBIAN CREWMEMBER Office Visit [facility] [phone] Marvin Mckeon MD [facility] [address] [place] [address] 03/20/2024 11:30 AM AMPHIBIAN CREWMEMBER Office Visit [facility] Family Medicine - [place] [address] [place] [phone] Abiodun Segura II, MD [address] [place] [address] documented as of this encounter Visit Diagnoses Not on filedocumented in this encounter Additional Health Concerns Assessment Noted Time PHQ-9 Depression Total Score: 0 03/08/19 9:30 AM AMPHIBIAN CREWMEMBER documented as of this encounter Care Teams Mixing Engineer Relationship Specialty Start Date End Date Abiodun Segura II, MD [address] [place], [place] [phone] PCP - General FAMILY PRACTICE 03/09/21 documented as of this encounter
--- OUTSIDE RECORDS SUMMARY | 2024-03-02 22:25 | XMS_ITS | Encounter Summary ---
Author Organization [facility] Address [address] [place] [address]. [place], [place] [address] [place] [id number] Care Team Providers Care Metal Machinist Name Role Phone Colton SILVEIRA MD, Abiodun Rushing Primary Care Provider Encounter Details Date Type Department Care Team (Latest Contact Info) Description 02/15/2022 Travel Social History Tobacco Use Types Packs/Day [...] Coronavirus/COVID-19? No / Unsure 02/15/2022 1:18 PM LIGHT RAIL TRAIN OPERATOR documented as of this encounter Functional Status [...] st Contact Info) Description 03/14/2024 11:45 AM LIGHT RAIL TRAIN OPERATOR Office Visit [facility] [phone] Marvin Mckeon MD [facility] [address] [place] [phone] 03/20/2024 11:30 AM LIGHT RAIL TRAIN OPERATOR Office Visit [facility] Family Medicine - [place] [address] [place] [phone] Abiodun Segura II, MD [address] [place] [phone] documented as of this encounter Visit Diagnoses Not on filedocumented in this encounter Additional Health Concerns Assessment Noted Time PHQ-9 Depression Total Score: 0 03/08/19 9:30 AM LIGHT RAIL TRAIN OPERATOR documented as of this encounter Care Teams Metal Machinist Relationship Specialty Start Date End Date Abiodun Segura II, MD [address] [place] [address] PCP - General FAMILY PRACTICE 03/09/21 documented as of this encounter
--- OUTSIDE RECORDS SUMMARY | 2024-03-02 22:25 | XMS_ITS | Encounter Summary ---
Author Organization [facility] Address [address] [place] [address]. [place] [address] [place] [address] Care Team Providers Care Plastic Design Applier Name Role Phone Colton SILVEIRA MD, Abiodun Rushing Primary Care Provider Victoriano Langsotn MD Unavailable [phone] Encounter Details Date Type Department Care Team (Latest Contact Info) Description 09/03/2022 Travel Social History Tobacco Use Types Packs/Day [...] Recorded Patient Health Questionnaire-2 Score 0 05/05/2022 [facility] - [...] dressing or bathing? Yes 09/03/2022 9:25 PM EMILEET Azeem Tom RN A ctive Because of a physical, mental, or emotional condition, do you have difficulty doing errands alone such as visiting a doctor's office or shopping? Yes 09/03/2022 9:25 PM CDT Ricki Tom ma, RN Active * RETIRED Are you deaf or do [...] Assessment Author Status Yes 12/17/2021 2:10 AM Amanda Ballesteros RN Active * Do you [...] 2:10 AM Amanda Ballesteros RN Active documented as of [...] st Contact Info) Description 03/14/2024 11:45 AM CLOTH PRESSER Office Visit [facility]-[address] [phone] Marvin Mckeon MD [facility] [address] [place] [address] 03/20/2024 11:30 AM CLOTH PRESSER Office Visit [facility] Family Medicine - [place] [address] [place] [phone] Abiodun Segura II, MD [address] [place] [address] documented as of this encounter Visit Diagnoses Not on filedocumented in this encounter Additional Health Concerns Assessment Noted Time PHQ-9 Depression Total Score: 0 03/08/19 22 9:30 AM CLOTH PRESSER documented as of this encounter Care Teams Plastic Design Applier Relationship Specialty Start Date End Date Abiodun Segura II, MD [address] [place] [address] PCP - General FAMILY PRACTICE 03/09/21 [place] [address] [place] [address] PODIATRY/SURGERY 05/05/22 documented as of this encounter
--- OUTSIDE RECORDS SUMMARY | 2024-03-02 22:25 | XMS_ITS | Encounter Summary ---
Author Organization [facility] Address [address] [place] [address]. [place] [address] [place] [address] Care Team Providers Care Press Shop Supervisor Name Role Phone Colton SILVEIRA MD, Abiodun Rushing Primary Care Provider Encounter Details Date Type Department Care Team (Late st Contact Info) Description 04/05/2022 11:03 AM TORQUE TESTER - 04/05/2022 11:59 PM [facility] Hospital Encounter [facility] [place] [place] [id number] Abiodun Segura II, MD [address] [place] [id number] Discharge Disposition: Home or Self Care [...] Coronavirus/COVID-19? No / Unsure 04/04/2022 11:24 AM TORQUE TESTER documented as of this encounter Functional Status [...] Assessment Author Status Yes 12/17/2021 2:10 AM EMILEET Amanda Qureshi RN Active * Do you [...] mouth 2 (two) times daily. 60 capsule 2 09/04/19 23 amLODIPine 10 MG tabletIndications:H ypertension, unspecified type [The details of the medication are not available because there are pending changes by a home health clinician.] 90 tablet 3 1 08/08/19 23 cyclobenzaprine (FLEXERIL) 10 MG tabletIndications:M uscle spasm Take 1 tablet (10 mg total) by mouth 3 (three) times daily as needed. 90 tablet 5 3 10/12/19 23 Dulaglutide (TRULICITY) 3 MG/0.5ML Solution Pen-injectorIndicat ions:diabetes Inject 3 mg into the skin weekly. Fridays 6 mL 3 2 05/23/19 23 Heparin Sodium, Porcine, (HEPARIN SODIUM FLUSH IV)Indications:IV patency 5 mLs by IVP route daily. Indications: IV patency 2 05/06/19 23 HUMALOG MIX 75/25 (75-25) 100 UNIT/ML SuspensionIndicatio ns:Type 2 diabetes mellitus with retinopathy, with long-term current use of insulin, macular edema presence unspecified, unspecified laterality, unspecified retinopathy severity ([facility] [place]) INJECT 60 UNITS SUBCUTANEOUSLY EVERY MORNING. THEN INJECT 55 UNITS SUBCUTANEOUSLY EVERY EVENING. 40 mL 3 06/04/19 23 HYDROcodone-acetami nophen (NORCO) 5-325 MG tabletIndications:A cute Pain < 7 Day Supply Take 1 tablet by mouth every 6 (six) hours as needed. Indications: Acute Pain < 7 Day Supply 28 tablet 2 09/10/19 23 hydrocortisone (HYTONE) 2.5 % ointmentIndications :Skin Rash Apply 1 Application topically daily as needed. Indications: Rash Apply to face 2 10/12/19 23 hydrOXYzine (ATARAX) 25 MG tabletIndications:B urning Sensation and Itching (Inactive) Take 1-2 tablets (25-50 mg total) by mouth nightly at bedtime. Indications: Burning Feeling and Itching 2 10/12/19 23 insulin lispro protamine-insulin lispro (HUMALOG MIX 75/25) (75-25) 100 UNIT/ML SuspensionIndicatio ns:diabetes Inject 55 Units into the skin every evening. Indications: diabetes 05/06/19 23 insulin lispro protamine-insulin lispro (HUMALOG MIX 75/25) (75-25) 100 UNIT/ML SuspensionIndicatio ns:diabetes Inject 65 Units into the skin every morning. Indications: diabetes 05/06/19 23 linaCLOtide (LINZESS) 145 MCG capsuleIndications: Chronic idiopathic constipation Take 1 capsule (145 mcg total) by mouth every morning before breakfast. Take on empty stomach at least 30 minutes prior to the first meal of the day. Swallow whole. Do not open capsule or chew. 30 capsule 5 3 05/06/19 23 lisinopril (PRINIVIL) 40 MG tabletIndications:h ypertension Take 1 tablet by mouth once daily 90 tablet 3 2 09/10/19 23 omeprazole 40 MG capsuleIndications: Esophagitis due to doxycycline Take 1 capsule (40 mg total) by mouth in the morning. 30 capsule 1 2 10/12/19 ondansetron 4 MG disintegrating tabletIndications:N ausea Take 1 tablet (4 mg total) by mouth every 8 (eight) hours as needed for Nausea. 20 tablet 2 10/12/19 simvastatin (ZOCOR) 40 MG tabletIndications:H ypercholesteremia [The details of the medication are not available because there are pending changes by a home health clinician.] 90 tablet 3 2 06/15/19 24 Sodium Chloride Flush (SALINE FLUSH IV)Indications:IV patency 10 mLs by IVP route daily. Indications: IV patency 2 05/06/19 traMADol (ULTRAM) 50 MG tabletIndications:A cute Pain < 3 Day Supply Take 1 tablet (50 mg total) by mouth every 6 (six) hours as needed. Indications: Acute Pain < 3 Day Supply 12 tablet 2 09/04/19 documented as of this encounter Progress Notes * Abiodun Segura II, MD - 04/05/2022 11:20 AM CST Patient called with results. All values explained. She had discontinued her long acting insulin at bedtime as she had discontinued her evening snacks. She will restart and we will check A1C at followup in June. Follow up as directed. UE TESTER documented in this encounter Plan of Treatment Upcoming Encounters Date Type Department Care Team (Late st Contact Info) Description 03/14/2024 11:45 AM TORQUE TESTER Office Visit [facility] [phone] Marvin Mckeon MD [facility] [address] [place] [phone] 03/20/2024 11:30 AM TORQUE TESTER Office Visit [facility] - [place] [address] [place] [phone] Abiodun Segura II, MD [address] [place], [place] [address] documented as of this encounter Procedures Procedure Name Priority Date/Time Associated Diagnosis Comments HEMOGLOBIN, GLYCOSYLATED Routine 04/05/2022 11:13 AM TORQUE TESTER Type 2 diabetes mellitus with diabetic neuropathic arthropathy, with long-term current use of insulin ([facility] [place]) COMPREHENSIVE METABOLIC PANEL Routine 04/05/2022 11:13 AM TORQUE TESTER Primary hypertension LIPID PANEL Routine 04/05/2022 11:13 AM TORQUE TESTER Hypercholesteremia CBC W/DIFF AUTOMATED Routine 04/05/2022 11:13 AM TORQUE TESTER Primary hypertension documented in this encounter Results * (ABNORMAL) LIPID PANEL (04/05/2022 11:13 AM TORQUE TESTER) CHOLESTEROL 182 <200 MG/DL 04/05/2022 11:44 AM TORQUE TESTER [facility] TRIGLYCERIDES 210(H) <150 MG/DL 04/05/2022 11:44 AM TORQUE TESTER [facility] HDL 41 >40.0 MG/DL 04/05/2022 11:44 AM TORQUE TESTER [facility] LDL (CALCULATED) 99 <100 MG/DL 04/05/2022 11:[address] [facility] NON HDL CHOLESTEROL 141(H) <130 MG/DL 04/05/2022 11:[address] [facility] CHOL/HDL RATIO 4.4 0.0 - 4.5 04/05/2022 11:[address] [facility] VLDL CALCULATION 42 5 - 55 MG/DL 04/05/2022 11:[address] [facility] LIPID INTERPRETATION 04/05/2022 11:[address] [facility] Comment: [facility] REPORT RECOMMENDATIONS: ?ADULT ?CHILD ??LOW RISK: ?CHOLESTEROL ? <200 ? <170 ?TRIGLYCERIDE ?<150 ?--- ?HDL ? >=60 ?--- ?LDL ? <100 ? <110 ??BORDERLINE: ?CHOLESTEROL ? 200-239 ?? 170-199 ?TRIGLYCERIDE ?150-199 ? --- ?HDL ?40-59 ?--- ?LDL ? 100-159 ?? 110-129 ??HIGH RISK: ?CHOLESTEROL ? >=240 ?>=200 ?TRIGLYCERIDE ?>=200 ? --- ?HDL ?<40 ?--- ?LDL ? >=160 ?>=130 04/05/2022 11:1 3 AM TORQUE TESTER us Abiodun Segura II, MD LABORATORY Final R esult [facility] [address] [place] [address], [place] [phone] * (ABNORMAL) CBC W/DIFF AUTOMATED (04/05/2022 11:13 AM TORQUE TESTER) [facility] WBC 8.7 4.5 - 11.0 x10'3/uL 04/05/2022 11:24 AM TORQUE TESTER [facility] RBC 4.14(L) 4.20 - 5.40 x10'6/uL 04/05/2022 11:[address] [facility] HGB 12.7 12.0 - 16.0 G/DL 04/05/2022 11:24 AM TORQUE TESTER [facility] HCT 37.9(L) 38.0 - 48.0 % 04/05/2022 11:24 AM TORQUE TESTER [facility] MCV 91.5 81.0 - 99.0 FL 04/05/2022 11:[address] [facility] MCH 30.7 27.0 - 31.0 PG 04/05/2022 11:24 AM TORQUE TESTER [facility] MCHC 33.5 32.0 - 36.0 G/DL 04/05/2022 11:[address] [facility] RDW 12.6 11.5 - 14.5 % 04/05/2022 11:[address] [facility] PLT 263 130 - 400 x10'3/uL 04/05/2022 11:[address] [facility] MPV 10.9 9.3 - 12.2 FL 04/05/2022 11:[address] [facility] DIFFERENTIAL TYPE AUTOMATED DIFFERENTIAL 04/05/2022 11:24 AM TORQUE TESTER [facility] NEUTROPHILS % 62.1 % 04/05/2022 11:[address] [facility] LYMPHOCYTES % 29.9 % 04/05/2022 11:[address] [facility] MONOCYTES % 4.4 % 04/05/2022 11:[address] [facility] EOSINOPHILS 2.6 % 04/05/2022 11:[address] [facility] BASOPHILS 0.8 % 04/05/2022 11:[address] [facility] IMMATURE GRANS % 0.2 % 04/05/19 11:[address] [facility] ABS. NEUTROPHILS TOTAL 5.40 1.80 - 7.70 x10'3/uL 04/05/2022 11:[address] [facility] ABS. LYMPHOCYTES 2.60 1.00 - 4.80 x10'3/uL 04/05/2022 11:[address] [facility] ABS. MONOCYTES 0.38 0.24 - 0.86 x10'3/uL 04/05/2022 11:[address] [facility] ABS. EOSINOPHILS 0.23 0.04 - 0.36 x10'3/uL 04/05/2022 11:[address] [facility] ABS. BASOPHILS 0.07 0.01 - 0.08 x10'3/uL 04/05/2022 11:[address] [facility] ABS. IMMATURE GRANULOCYTES 0.02 0.00 - 0.49 x10'3/uL 04/05/2022 11:[address] [facility] 04/05/2022 11:1 3 AM TORQUE TESTER us Abiodun Segura II, MD LABORATORY Final R esult [facility] [address] [place] [address], * (ABNORMAL) COMPREHENSIVE METABOLIC PANEL (04/05/2022 11:13 AM TORQUE TESTER) [facility] Signature GLUCOSE 154(H) 70 - 99 MG/DL 04/05/2022 11:[address] [facility] BUN 17 7 - 18 MG/DL 04/05/2022 11:[address] [facility] CREATININE S/P/B 0.88 0.55 - 1.02 MG/DL 04/05/2022 11:[address] [facility] SODIUM S/P/B 141 136 - 145 MMOL/L 04/05/2022 11:[address] [facility] POTASSIUM S/P/B 4.0 3.5 - 5.1 MMOL/L 04/05/2022 11:[address] [facility] CHLORIDE S/P/B 105 100 - 108 MMOL/L 04/05/2022 11:[address] [facility] CO2 28.9 21 - 32 MMOL/L 04/05/2022 11:[address] [facility] CALCIUM S/P/B 9.4 8.5 - 10.1 MG/DL 04/05/2022 11:[address] [facility] BILIRUBIN TOTAL S/P/B 0.3 0.2 - 1.2 MG/DL 04/05/2022 11:[address] [facility] Comment: THIS ASSAY IS NOT RECOMMENDED FOR PATIENTS UNDERGOING TREATMENT WITH ELTROMBOPAG DUE TO THE POTENTIAL FOR FALSELY ELEVATED RESULTS. TOTAL PROTEIN S/P/B 9.1(H) 6.4 - 8.2 G/DL 04/05/2022 11:[address] [facility] ALBUMIN S/P/B 3.3(L) 3.4 - 5.0 G/DL 04/05/2022 11:[address] [facility] AST 20 15 - 37 U/L 04/05/2022 11:[address] [facility] ALT 24 14 - 55 U/L 04/05/2022 11:[address] [facility] ALKALINE PHOSPHATASE S/P/B 149(H) 50 - 136 U/L 04/05/2022 11:[address] [facility] ANION GAP 7.1 5 - 15 MMOL/L 04/05/2022 11:[address] [facility] BUN CREATININE RATIO 19.3 6 - 26 04/05/2022 11:[address] [facility] A/G RATIO 0.6(L) 1.0 - 2.0 RATIO 04/05/2022 11:[address] [facility] GFR ESTIMATE 80(L) >90 ML/MIN/1.7 3 M2 04/05/2022 11:[address] [facility] Comment: NOTE: eGFR is not calculated for patients <18 years of age. This is an estimated GFR calculation using the new CKD EPI creatinine equation without race and so does not require a correction factor for race. This estimated GFR should not be used for calculating drug doses. 04/05/2022 11:1 3 AM TORQUE TESTER us Abiodun Segura II, MD LABORATORY Final R esult [facility] [address] [place] [address], [place] [phone] * (ABNORMAL) HEMOGLOBIN, GLYCOSYLATED (04/05/2022 11:13 AM TORQUE TESTER) HGB A1C 8.0(H) <5.7 % 04/05/2022 3:46 PM TORQUE TESTER [facility] Comment: ADA GUIDELINES 2010 5.7 TO 6.4% INCREASED RISK OF DIABETES > OR = 6.5% CONSISTENT WITH DIABETES ESTIMATED AVG GLUCOSE 183 mg/dL 04/05/2022 3:46 PM TORQUE TESTER [facility] 04/05/2022 11:1 3 AM TORQUE TESTER Abiodun Segura II, MD LABORATORY Final R esult [facility] [address] [place] [address], documented in this encounter Visit Diagnoses Diagnosis Type 2 diabetes mellitus with diabetic neuropathic arthropathy, with long-term current use of insulin ([facility]) Primary hypertension Unspecified essential hypertension Hypercholesteremia Pure hypercholesterolemia documented in this encounter Additional Health Concerns Assessment Noted Time PHQ-9 Depression Total Score: 0 03/08/19 22 9:30 AM TORQUE TESTER documented as of this encounter Care Teams Press Shop Supervisor Relationship Specialty Start Date End Date Abiodun Segura II, MD [address] [place] [id number] PCP - General FAMILY PRACTICE 03/09/21 documented as of this encounter
--- OUTSIDE RECORDS SUMMARY | 2024-03-02 22:25 | XMS_ITS | Encounter Summary ---
Author Organization [facility] Address [address] [place] [address]. [place] [address] [place] [address] Care Team Providers Care Livestock Producer Name Role Phone Colton SILVEIRA MD, Yasmin Rushing Primary Care Provider Victoriano Langston MD Unavailable [phone] Reason for Visit * Reason Comments Diabetes Patient present DM 2 and possible UTI Encounter Details Date Type Department Care Team (Late st Contact Info) Description 06/27/2022 12:20 PM CDT Office Visit [facility] Family Medicine - [address] [phone] Yasmin Valenzuela II, MD [address] [place] [phone] Diabetes (Patient present DM 2 and possible UTI) Social History Tobacco Use Types Packs/Day Years Used Date Smoking Tobacco: Never Smokeless Tobacco: Never Tobacco Cessation:Counseling Given: No Alcohol Use Standard Drinks/Week Comments Yes 0 (1 standard drink = 0.6 oz pur e alcohol) few times per year AUDIT-C Answer Date Recorded Q1: How often do you have a drink containing alcohol? Never 05/05/2022 Q2: How many drinks containi ng alcohol do you have on a typical day when you are drinking? Patient does not drink Q3: How often do you have si x or more drinks on one occasion? Never 05/05/2022 PHQ-2 Answer Date Recorded Patient Health Questionnaire-2 Score 0 05/05/2022 Comments No Sex and Gender Information Value [...] suspected to have Coronavirus/COVID-19? No / Unsure 06/27/2022 12:12 PM CDT documented as of this encounter Last Filed Vital Signs Vital Sign Reading Time Taken Comments Blood Pressure 134/76 06/27/2022 12:38 PM CDT Pulse 93 06/27/2022 12:19 PM CDT Temperature 36.4 ??C (97.5 ??F) 06/27/2022 12:19 PM C DT Respiratory Rate 16 06/27/2022 12:19 PM CDT Oxygen Saturation 100% 06/27/2022 12:19 PM CDT Inhaled Oxygen Concentration - - Weight 85.7 kg (189 lb) 06/27/2022 12:19 PM CDT Height - - Body Mass Index 30.51 05/05/2022 10:46 AM CDT documented in this encounter Functional Status * RETIRED Are [...] documented in this encounter Progress Notes * Patricia Munoz - 06/27/2022 12:20 PM CDTAddended by: PATRICIA MUNOZ on: 06/27/2022 08:08 PM Modules accepted: Orders * Yasmin Valenzuela II, MD - 06/27/2022 12:20 PM CDT Images from the original note were not included. [facility] [place] [id number] OFFICE FOLLOW UP NOTE Encounter Date: 06/27/2022 Chief Complaint: Diabetes (Patient present DM 2 and possible UTI) History of Present Illness: 52-year-old female with history of diabetes, hypertension, hyperlipidemia, right diabetic foot ulcer which is healing well, Charcot foot, constipation, and blindness of right eye here to follow-up onrecent lab work and with acute complaint of burning with urination and cramping in her pelvis for the last 2 days. Here for evaluation and treatment recommendations. Patient denies fevers or chills. Review Of Systems: Positive ROS items as noted in HPI. All other Systems were reviewed and are negative. Patient Active Problem List Diagnosis ??? Hypercholesteremia ??? Hypertension ??? Type 2 diabetes mellitus (CMS/HCC) ??? Renal disorder ??? Chronic bilateral low back pain without sciatica ??? Callus of foot ??? Vision decreased ??? Renal stones ??? Charcot foot due to diabetes mellitus (CMS/HCC) ??? Hot flashes due to menopause ??? Chest pain ??? Diabetic foot infection (CMS/HCC) ??? Osteomyelitis (CMS/HCC) Past Medical History: Diagnosis Date ??? Arthritis ??? Charcot foot due to diabetes mellitus (CMS/HCC) LEFT FOOT ??? Constipation ??? COVID-19 ??? Diabetes mellitus (CMS/HCC) ??? Diabetic neuropathy (CMS/HCC) ??? High cholesterol ??? Hypertension ??? 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 UTI (urinary tract infection) ??? Vision decreased blind right eye, poor vision left eye Past Surgical History: Procedure Laterality Date ??? 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 BLADDER SURGERY ??? EYE SURGERY ??? HYSTERECTOMY 2004, 2019 hysterectomy, cervical surgery ??? RETINAL DETACHMENT SURGERY Right Family History Problem Relation Name Age of Onset ??? Diabetes Mother ??? Hypertension Mother ??? Heart Attack Father ??? Hypertension Father ??? Stroke Sister ??? Hypertension Sister ??? Breast Cancer Other cousin 49 Social History Socioeconomic History ??? Marital status: Spouse name: Not on file ??? Number of children: Not on file ??? Years of education: Not on file ??? Highest education level: Not on file Occupational History ??? Not on file Tobacco Use ??? Smoking status: Never ??? Smokeless tobacco: Never Vaping Use ??? Vaping Use: Never used Substance and Sexual Activity ??? Alcohol use: Yes Comment: few times per year ??? Drug use: No ??? Sexual activity: Not on file Comment: unknown Other Topics Concern ??? Service Not Asked ??? Blood Transfusions Not Asked ??? Caffeine Concern No ??? Occupational Exposure Not Asked ??? Hobby Hazards Not Asked ??? Sleep Concern Not Asked ??? Stress Concern Not Asked ??? Weight Concern Not Asked ??? Special Diet Not Asked ??? Back Care Not Asked ??? Exercise No ??? Bike Helmet Not Asked ??? Seat Belt Yes ??? Self-Exams Not Asked Social History Narrative lives with and C. Social Determinants of Health Financial Resource Strain: Not on file Food Insecurity: Not on file Transportation Needs: Not on file Physical Activity: Not on file Stress: Not on file Social Connections: Not on file Intimate Partner Violence: Not on file Housing Stability: Not on file There is no immunization history for the selected administration types on file for this patient. Current Outpatient Medications Medication Sig Dispense Refill ??? acidophilus (FLORAJEN) capsule Take 1 capsule by mouth 2 (two) times daily. 60 capsule 0 ??? amLODIPine 10 MG tablet Take 1 tablet (10 mg total) by mouth daily. (Patient taking differently: Take 1 tablet (10 mg total) by mouth nightly.) 90 tablet 3 ??? BD VEO INSULIN SYRINGE U/F 31G X 1 ML Misc USE 1 SYRINGE TWICE DAILY 100 each 0 ??? ciprofloxacin (CIPRO) 500 MG tablet Take 1 tablet (500 mg total) by mouth 2 (two) times daily for 7 days. 14 tablet 0 ??? cyclobenzaprine (FLEXERIL) 10 MG tablet Take 1 tablet (10 mg total) by mouth 3 (three) times daily as needed. 90 tablet 5 ??? dulaglutide (TRULICITY) 1.5 MG/0.5ML injection Inject 1.5 mg into the skin once a week. 4 pen 1 ??? dulaglutide (TRULICITY) 3 MG/0.5ML injection Inject 3 mg into the skin once a week. Indications: diabetes Fridays 6 mL 3 ??? fluconazole (DIFLUCAN) 150 MG tablet Take 1 tablet (150 mg total) by mouth once for 1 dose. 1 tablet 0 ??? HUMALOG MIX 75/25 (75-25) 100 UNIT/ML Suspension INJECT 60 UNITS SUBCUTANEOUSLY ONCE DAILY IN THE MORNING AND 55 ONCE DAILY IN THE EVENING 40 mL 0 ??? HYDROcodone-acetaminophen (NORCO) 5-325 MG tablet Take 1 tablet by mouth every 6 (six) hours asneeded. Indications: Acute Pain < 7 Day Supply 28 tablet 0 ??? hydrocortisone (HYTONE) 2.5 % ointment Apply 1 Application topically daily as needed. Indications: Rash Apply to face ??? hydrOXYzine (ATARAX) 25 MG tablet Take 1-2 tablets (25-50 mg total) by mouth nightly at bedtime. Indications: Burning Feeling and Itching ??? lisinopril (PRINIVIL) 40 MG tablet Take 1 tablet by mouth once daily 90 tablet 3 ??? omeprazole 40 MG capsule Take 1 capsule (40 mg total) by mouth in the morning. (Patient taking differently: Take 1 capsule (40 mg total) by mouth daily as needed.) 30 capsule 1 ??? ondansetron 4 MG disintegrating tablet Take 1 tablet (4 mg total) by mouth every 8 (eight) hours as needed for Nausea. 20 tablet 0 ??? simvastatin (ZOCOR) 40 MG tablet TAKE 1 TABLET BY MOUTH AT BEDTIME (Patient taking differently:Take 1 tablet (40 mg total) by mouth nightly at bedtime.) 90 tablet 3 ??? traMADol (ULTRAM) 50 MG tablet Take 1 tablet (50 mg total) by mouth every 6 (six) hours as needed. Indications: Acute Pain < 3 Day Supply 12 tablet 0 ??? dulaglutide (TRULICITY) 1.5 MG/0.5ML injection Inject 3 mg into the skin once a week. 4 mL 5 No current facility-administered medications for this visit. Allergies Allergen Reactions ??? Fish Oil Unknown ??? Amoxicillin Rash ??? Penicillins Rash Objective: Filed Vitals: 06/27/22 1219 BP: (!) 142/91 Pulse: 93 Resp: 16 Temp: 97.5 ??F (36.4 ??C) TempSrc: Skin SpO2: 100% Weight: 85.7 kg (189 lb) Nursing note reviewed. Physical Exam Vitals [...] or performed during the hospital encounter of 06/26/22 HEMOGLOBIN, GLYCOSYLATED Result Value Ref Range HGB A1C 8.3 (H) <5.7 % ESTIMATED AVE GLUCOSE 192 mg/dL CBC W/DIFF AUTOMATED Result Value Ref Range WBC 8.1 4.5 - 11.0 x10'3/uL RBC 3.98 (L) 4.20 - 5.40 x10'6/uL HGB 11.9 (L) 12.0 - 16.0 G/DL HCT 36.0 (L) 38.0 - 48.0 % MCV 90.5 81.0 - 99.0 FL MCH 29.9 27.0 - 31.0 PG MCHC 33.1 32.0 - 36.0 G/DL RDW 13.3 11.5 - 14.5 % PLT 272 130 - 400 x10'3/uL MPV 10.8 9.3 - 12.2 FL DIFFERENTIAL TYPE AUTOMATED DIFFERENTIAL NEUTROPHILS 57.3 % LYMPHOCYTES 36.4 % MONOCYTES 4.3 % EOSINOPHILS 1.1 % BASOPHILS 0.5 % IMMATURE GRANS 0.4 % ABS. NEUTROPHILS TOTAL 4.61 1.80 - 7.70 x10'3/uL ABS. LYMPHOCYTES 2.93 1.00 - 4.80 x10'3/uL ABS. MONOCYTES 0.35 0.24 - 0.86 x10'3/uL ABS. EOSINOPHILS 0.09 0.04 - 0.36 x10'3/uL ABS. BASOPHILS 0.04 0.01 - 0.08 x10'3/uL ABS. IMMATURE GRANULOCYTES 0.03 0.00 - 0.49 x10'3/uL COMPREHENSIVE METABOLIC PANEL Result Value Ref Range GLUCOSE 152 (H) 70 - 99 MG/DL BUN 16 7 - 18 MG/DL CREATININE S/P/B 0.97 0.55 - 1.02 MG/DL SODIUM S/P/B 136 136 - 145 MMOL/L POTASSIUM S/P/B 4.0 3.5 - 5.1 MMOL/L CHLORIDE S/P/B 105 100 - 108 MMOL/L CO2 29.2 21 - 32 MMOL/L CALCIUM 9.4 8.5 - 10.1 MG/DL BILIRUBIN TOTAL S/P/B 0.4 0.2 - 1.2 MG/DL TOTAL PROTEIN S/P/B 8.6 (H) 6.4 - 8.2 G/DL ALBUMIN S/P/B 3.4 3.4 - 5.0 G/DL AST 30 15 - 37 U/L ALT 39 14 - 55 U/L ALKALINE PHOSPHATASE S/P/B 135 50 - 136 U/L ANION GAP 1.8 (L) 5 - 15 MMOL/L BUN CREATININE RATIO 16.6 6 - 26 A/G RATIO 0.7 (L) 1.0 - 2.0 RATIO GFR ESTIMATE 71 (L) >90 ML/MIN/1.73 M2 LIPID PANEL Result Value Ref Range CHOLESTEROL 184 <200 MG/DL TRIGLYCERIDES 238 (H) <150 MG/DL HDL 44 >40.0 MG/DL LDL (CALCULATED) 92 <100 MG/DL NON HDL CHOLESTEROL 140 (H) <130 MG/DL CHOL/HDL RATIO 4.2 0.0 - 4.5 VLDL CALCULATION 48 5 - 55 MG/DL LIPID INTERPRETATION Counseling The patient and patient's family was counseled regarding instructions for management, patient and family education and importance of compliance with treatment. Assessment: 1. Type 2 diabetes mellitus with diabetic neuropathic arthropathy, with long- term current use of insulin ([facility]) 2. Primary hypertension 3. Hypercholesteremia 4. Acute cystitis without hematuria ciprofloxacin (CIPRO) 500 MG tablet URINALYSIS AUTO DIP CULTURE URINE 5. Candidiasis of genitalia in female fluconazole (DIFLUCAN) 150 MG tablet 6. Hot flashes due to menopause Plan: Orders Placed This Encounter Medications ??? ciprofloxacin (CIPRO) 500 MG tablet ??? fluconazole (DIFLUCAN) 150 MG tablet 1. Type 2 diabetes mellitus with diabetic neuropathic arthropathy, with long- term current use of insulin ([facility]) Patient's hemoglobin A1c is slightly higher than previous likely secondary to lack of Trulicity forapproximately 1 month secondary to supply issues. Patient just restarted Trulicity 3 mg weekly and has 4 boxes. We will continue current dose and patient will follow-up with me in 3 months for recheck hemoglobin A1c. If elevated at that time we will increase Trulicity to 4.5 mg weekly. 2. Primary hypertension Patient's blood pressure is at goal on recheck. We will continue amlodipine 10 mg daily and lisinopril 40 mg daily patient will follow-up with me in 3 months for blood pressure recheck. Patient will continue to eat well and remain as active as possible to help additionally lower blood pressure. 3. Hypercholesteremia Patient's lipids are at goal. We will continue simvastatin 40 mg daily and plan to recheck lipids in 6 to 12 months for trend. 4. Acute cystitis without hematuria Patient is high risk for ascending UTIs. We will check urinalysis and urine culture and we will treat with ciprofloxacin 500 mg twice a day for 7 days. I will call patient with urine culture results if an antibiotic class which is needed. - ciprofloxacin (CIPRO) 500 MG tablet; Take 1 tablet (500 mg total) by mouth 2 (two) times daily for 7 days. Dispense: 14 tablet; Refill: 0 - URINALYSIS AUTO DIP - CULTURE URINE; Future 5. Candidiasis of genitalia in female Patient is known to get yeast infections with antibiotic use. We will treat with Diflucan x1. - fluconazole (DIFLUCAN) 150 MG tablet; Take 1 tablet (150 mg total) by mouth once for 1 dose. Dispense: 1 tablet; Refill: 0 6. Hot flashes due to menopause Patient does continue to have hot flashes due to menopause. If these become more problematic we mayconsider low-dose estrogen in the future. I personally spent a total of 34 minutes on the day of the encounter. This includes [id number] and uou-gaia-cl-face time I provided on the day of the encounter & excludes time spent performing separately reportable services. There are no discontinued medications. YASMIN VALENZUELA MD 06/27/2022 Portions of this note were dictated using Vadio speech recognition software. Occasional wrong wordor sound-alike substitutions may have occurred due to the inherent limitations of voice recognition software. Please read the chart carefully and recognize, using context, where the substitutions may have occurred. documented in this encounter Plan of Treatment Upcoming Encounters Date Type Department Care Team (Late st Contact Info) Description 03/14/2024 11:45 AM WEIGHMASTER Office Visit [facility] [phone] Marvin Mckeon MD [facility] [address] [place], [place] [id number] 03/20/2024 11:30 AM WEIGHMASTER Office Visit [facility] Family Medicine - [address] [phone] Yasmin Valenzuela II, MD [address] [place] [address] documented as of this encounter Procedures Procedure Name Priority Date/Time Associated Diagnosis Comments URINE BACTERIA CULTURE Routine 06/27/2022 7:51 PM CDT Acute cystitis without hematuria documented in this encounter Results * CULTURE URINE (06/27/2022 7:51 PM CDT) C[facility] RESULT [facility] [place] Comment: ??CULTURE, URINE, ROUTINE ?Micro Number: ?[id number] ??Test Status: ? Final ??Specimen Source: ?? Urine ??Specimen Quality: ??Adequate ??Result: ?Mixed genital ketty isolated. These superficial ? bacteria are not indicative of a urinary tract ? infection. No further organism identification is ? warranted on this specimen. If clinically ? indicated, recollect clean-catch, mid-stream ? urine and transfer immediately to Urine Culture ? Transport Tube. URINE SPECIMEN OBTAINED BY CLEAN CATCH PROCEDURE / Unknown 06/27/2022 7:51 PM CDT 06/28/2022 11:23 PM CDT Narrative Resulting Agency Comment Performing Organization Information: ?Site ID: [id number] ?[facility] ?Address: [address] [place] [address] ?Director: Robert Mendez us Yasmin Valenzuela II, MD MICROBIOLOGY - GENERAL ORDERABLES Final Result [facility]-[address] [phone] documented in this encounter Visit Diagnoses Diagnosis Acute cystitis without hematuria- Primary Acute cystitis Type 2 diabetes mellitus with diabetic neuropathic arthropathy, with long-term current use of insulin ([facility]) Primary hypertension Unspecified essential hypertension Hypercholesteremia Pure hypercholesterolemia Candidiasis of genitalia in female Candidiasis of vulva and vagina Hot flashes due to menopause documented in this encounter Additional Health Concerns Assessment Noted Time PHQ-9 Depression Total Score: 0 03/08/19 22 9:30 AM WEIGHMASTER documented as of this encounter Care Teams Livestock Producer Relationship Specialty Start Date End Date Yasmin Valenzuela II, MD [address] [place] [address] PCP - General FAMILY PRACTICE 03/09/21 [place] [address] [place] [address] PODIATRY/SURGERY 05/05/22 documented as of this encounter
--- OUTSIDE RECORDS SUMMARY | 2024-03-02 22:25 | XMS_ITS | Encounter Summary ---
Author Organization [facility] Address [address] [place] [address]. [place] [address] [place] [address] Care Team Providers Care Job Press Feeder Name Role Phone Colton SILVEIRA MD, Yasmin Rushing Primary Care Provider Reason for Visit * Reason Comments Diabetes Pt present for diabe neil follow up. Encounter Details Date Type Department Care Team (Late st Contact Info) Description 03/15/2022 9:20 AM GENERAL SALES MANAGER Office Visit [facility] Family Medicine - [place] [address] [place] [address] Yasmin Valenzuela II, MD [address] [place] [address] Diabetes (Pt present for diabetes follow up.) Social History Tobacco Use Types Packs/Day Years [...] suspected to have Coronavirus/COVID-19? No / Unsure 03/15/2022 9:40 AM GENERAL SALES MANAGER documented as of this encounter Last Filed Vital Signs Vital Sign Reading Time Taken Comments Blood Pressure 132/76 03/15/2022 10:04 AM GENERAL SALES MANAGER Pulse 89 03/15/2022 9:48 AM GENERAL SALES MANAGER Temperature 36.7 ??C (98 ??F) 03/15/2022 9:48 AM GENERAL SALES MANAGER Respiratory Rate - - Oxygen Saturation 100% 03/15/2022 9:48 AM GENERAL SALES MANAGER Inhaled Oxygen Concentration - - Weight 85.3 kg (188 lb) 03/15/2022 9:48 AM GENERAL SALES MANAGER Height - - Body Mass Index 30.34 01/08/2022 5:27 PM GENERAL SALES MANAGER documented in this encounter Functional Status * [...] Notes * Yasmin Valenzuela II, MD - 03/15/2022 9:20 AM CST Images from the original note were not included. [facility] FAMILY MEDICINE - [address] [address] OFFICE FOLLOW UP NOTE Encounter Date: 03/15/2022 Chief Complaint: Diabetes (Pt present for diabetes follow up.) History of Present Illness: 51-year-old female with history of diabetes, right foot diabetic ulcer, hypertension, hypercholesterolemia, Charcot foot, constipation, and decreased vision in her right eye secondary to diabetes here to follow-up on diabetes and blood pressure. Patient reports that she is doing well at this time but the wound on her foot continues to heal. Patient is doing well on Trulicity and reports that her sugars at home are mostly at goal. Review Of Systems: Positive ROS items as [...] Sexual Activity ??? Alcohol use: Yes Comment: Rarely ??? Drug use: No ??? Sexual activity: [...] by mouth daily. (Patient taking differently: Take 10 mg by mouth nightly.) 90 tablet 3 ??? cyclobenzaprine (FLEXERIL) 10 MG tablet Take 1 tablet (10 mg total) by mouth 3 (three) times daily as needed. 90 tablet 5 ??? Dulaglutide (TRULICITY) 3 MG/0.5ML Solution Pen-injector Inject 3 mg into the skin weekly. Fridays 6 mL 3 ??? Heparin Sodium, Porcine, (HEPARIN SODIUM FLUSH IV) 5 mLs by IVP route daily. Indications: IV patency ??? HYDROcodone-acetaminophen (NORCO) 5-325 MG tablet Take 1 tablet by mouth every 6 (six) hours asneeded. Indications: Acute Pain < 7 Day Supply 28 tablet 0 ??? hydrocortisone (HYTONE) 2.5 % ointment Apply 1 Application topically daily as needed. Indications: Rash Apply to face ??? hydrOXYzine (ATARAX) 25 MG tablet Take 25-50 mg by mouth nightly at bedtime. Indications: Burning Feeling and Itching ??? insulin lispro protamine-insulin lispro (HUMALOG MIX 75/25) (75-25) 100 UNIT/ML Suspension Inject 55 Units into the skin every evening. Indications: diabetes ??? insulin lispro protamine-insulin lispro (HUMALOG MIX 75/25) (75-25) 100 UNIT/ML Suspension Inject 65 Units into the skin every morning. Indications: diabetes ??? linaCLOtide (LINZESS) 145 MCG capsule Take 1 capsule (145 mcg total) by mouth every morning before breakfast. Take on empty stomach at least 30 minutes prior to the first meal of the day. Swallowwhole. Do not open capsule or chew. 30 capsule 5 ??? lisinopril (PRINIVIL) 40 MG tablet Take 1 tablet by mouth once daily 90 tablet 3 ??? omeprazole 40 MG capsule Take 1 capsule (40 mg total) by mouth in the morning. (Patient taking differently: Take 40 mg by mouth daily as needed.) 30 capsule 1 ??? ondansetron 4 MG disintegrating tablet Take 1 tablet (4 mg total) by mouth every 8 (eight) hours as needed for Nausea. 20 tablet 0 ??? simvastatin (ZOCOR) 40 MG tablet TAKE 1 TABLET BY MOUTH AT BEDTIME (Patient taking differently:Take 40 mg by mouth nightly at bedtime.) 90 tablet 3 ??? Sodium Chloride Flush (SALINE FLUSH IV) 10 mLs by IVP route daily. Indications: IV patency ??? traMADol (ULTRAM) 50 MG tablet Take 1 tablet (50 mg total) by mouth every 6 (six) hours as needed. Indications: Acute Pain < 3 Day Supply 12 tablet 0 No current facility-administered medications for this visit. Allergies Allergen Reactions ??? Fish Oil Unknown ??? Amoxicillin Rash ??? Penicillins Rash Objective: Filed Vitals: 03/15/22 0948 03/15/22 1004 BP: (!) 146/86 132/76 Pulse: 89 Temp: 98 ??F (36.7 ??C) TempSrc: Temporal SpO2: 100% Weight: 85.3 kg (188 lb) Nursing note reviewed. Physical Exam Vitals [...] General: Skin is warm and dry. Comments: Wound is dressed. Neurological: Mental Status: She is alert and oriented to person, place, and time. Psychiatric: Mood and Affect: Mood normal. Behavior: Behavior normal. Thought Content: Thought content normal. Judgment: Judgment normal. Labs: Results for orders placed or performed in visit on 03/15/22 A1C (BACK OFFICE) Result Value Ref Range HGB A1C 7.3 % Counseling The patient and patient's family was counseled regarding instructions for management, patient and family education and importance of compliance with treatment. Assessment: 1. Type 2 diabetes mellitus with diabetic neuropathic arthropathy, with long- term current use of insulin ([facility]) A1C (BACK OFFICE) HEMOGLOBIN, GLYCOSYLATED 2. Ulcer of right foot, limited to breakdown of skin ([facility]) 3. Primary hypertension COMPREHENSIVE METABOLIC PANEL CBC W/DIFF AUTOMATED 4. Hypercholesteremia LIPID PANEL 5. Chronic idiopathic constipation linaCLOtide (LINZESS) 145 MCG capsule 6. Muscle spasm cyclobenzaprine (FLEXERIL) 10 MG tablet 7. Vision decreased Plan: Orders Placed This Encounter Medications ??? linaCLOtide (LINZESS) 145 MCG capsule ??? cyclobenzaprine (FLEXERIL) 10 MG tablet 1. Type 2 diabetes mellitus with diabetic neuropathic arthropathy, with long- term current use of insulin ([facility]) Hemoglobin A1c is steady at 7.3%. We will continue Trulicity 3 mg weekly and will consider increasing the dose if her A1c rises at follow-up in June. - A1C (BACK OFFICE) - HEMOGLOBIN, GLYCOSYLATED; Future 2. Ulcer of right foot, limited to breakdown of skin (CMS/HCC) Patient will continue to follow-up with wound care weekly for ongoing treatment. Patient has completed her course of IV antibiotics which seems to have helped dramatically. 3. Primary hypertension Patient's blood pressure is at goal. We will continue lisinopril 40 mg daily patient will follow-upin June for blood pressure recheck. We will check metabolic panel and CBC prior to follow-up for trend. - COMPREHENSIVE METABOLIC PANEL; Future - CBC W/DIFF AUTOMATED; Future 4. Hypercholesteremia Patient is tolerating simvastatin 40 mg daily well. We will check lipids prior to follow-up in June to ensure that LDL is below her treatment threshold. - LIPID PANEL; Future 5. Chronic idiopathic constipation Patient's symptoms are well controlled using Linzess 145 mcg daily. - linaCLOtide (LINZESS) 145 MCG capsule; Take 1 capsule (145 mcg total) by mouth every morning before breakfast. Take on empty stomach at least 30 minutes prior to the first meal of the day. Swallow whole. Do not open capsule or chew. Dispense: 30 capsule; Refill: 5 6. Muscle spasm Patient does get muscle spasms especially in the evenings which are helped by Flexeril. If this is related to her neuropathy and difficult to treat we will continue Flexeril as needed. - cyclobenzaprine (FLEXERIL) 10 MG tablet; Take 1 tablet (10 mg total) by mouth 3 (three) times daily as needed. Dispense: 90 tablet; Refill: 5 7. Vision decreased Patient followed up with ophthalmology reported stable findings. We will continue diabetic control and blood pressure control to help prevent worsening. I spent 25 minutes today reviewing the patient's medical record, obtaining history, examining the patient, counseling and educating the patient, documenting findings. Medications Discontinued During This Encounter Medication Reason ??? linaCLOtide 145 MCG capsule Reorder ??? cyclobenzaprine 10 MG tablet Reorder YASMIN VALENZUELA MD 03/15/2022 Portions of this note were dictated using [email or web address] speech recognition software. Occasional wrong wordor sound-alike substitutions may have occurred due to the inherent limitations of voice recognition software. Please read the chart carefully and recognize, using context, where the substitutions may have occurred. RAL SALES MANAGER documented in this encounter Plan of Treatment Upcoming Encounters Date Type Department Care Team (Late st Contact Info) Description 03/14/2024 11:45 AM GENERAL SALES MANAGER Office Visit [facility] [phone] Marvin Mckeon MD [address] [place], [place] [phone] 03/20/2024 11:30 AM GENERAL SALES MANAGER Office Visit [facility] Family Medicine - [place] [address] [place] [phone] Yasmin Valenzuela II, MD [address] [place] [address] documented as of this encounter Procedures Procedure Name Priority Date/Time Associated Diagnosis Comments HEMOGLOBIN, GLYCOSYLATED Routine 03/15/2022 10:35 AM GENERAL SALES MANAGER Type 2 diabetes mellitus with diabetic neuropathic arthropathy, with long-term current use of insulin ([facility]) documented in this encounter Results * (ABNORMAL) LIPID PANEL (04/05/2022 11:13 AM GENERAL SALES MANAGER) CHOLESTEROL 182 <200 MG/DL 04/05/2022 11:44 AM [facility] TRIGLYCERIDES 210(H) <150 MG/DL 04/05/2022 11:44 AM [facility] HDL 41 >40.0 MG/DL 04/05/2022 11:44 AM [facility] LDL (CALCULATED) 99 <100 MG/DL 04/05/2022 11:44 AM [facility] NON HDL CHOLESTEROL 141(H) <130 MG/DL 04/05/2022 11:44 AM [facility] CHOL/HDL RATIO 4.4 0.0 - 4.5 04/05/2022 11:44 AM [facility] VLDL CALCULATION 42 5 - 55 MG/DL 04/05/2022 11:44 AM [facility] LIPID INTERPRETATION 04/05/2022 11:44 AM [facility] Comment: [facility] CONCENSUS REPORT RECOMMENDATIONS: ?ADULT [...] ? >=160 ?>=130 04/05/2022 11:1 3 AM GENERAL SALES MANAGER Yasmin Valenzuela II, MD LABORATORY Final R esult [facility] [address] [place] [address], [place] [phone] * (ABNORMAL) CBC W/DIFF AUTOMATED (04/05/2022 11:13 AM GENERAL SALES MANAGER) [facility] WBC 8.7 4.5 - 11.0 x10'3/uL 04/05/2022 11:24 AM [facility] RBC 4.14(L) 4.20 - 5.40 x10'6/uL 04/05/2022 11:24 AM [facility] HGB 12.7 12.0 - 16.0 G/DL 04/05/2022 11:24 AM [facility] HCT 37.9(L) 38.0 - 48.0 % 04/05/2022 11:24 AM [facility] MCV 91.5 81.0 - 99.0 FL 04/05/2022 11:24 AM [facility] MCH 30.7 27.0 - 31.0 PG 04/05/2022 11:24 AM [facility] MCHC 33.5 32.0 - 36.0 G/DL 04/05/2022 11:24 AM [facility] RDW 12.6 11.5 - 14.5 % 04/05/2022 11:24 AM [facility] PLT 263 130 - 400 x10'3/uL 04/05/2022 11:24 AM [facility] MPV 10.9 9.3 - 12.2 FL 04/05/2022 11:24 AM [facility] DIFFERENTIAL TYPE AUTOMATED DIFFERENTIAL 04/05/2022 11:24 AM [facility] NEUTROPHILS % 62.1 % 04/05/2022 11:24 AM [facility] LYMPHOCYTES % 29.9 % 04/05/2022 11:24 AM [facility] MONOCYTES % 4.4 % 04/05/2022 11:24 AM [facility] EOSINOPHILS 2.6 % 04/05/2022 11:24 AM [facility] BASOPHILS 0.8 % 04/05/2022 11:24 AM [facility] IMMATURE GRANS % 0.2 % 04/05/19 11:24 AM [facility] ABS. NEUTROPHILS TOTAL 5.40 1.80 - 7.70 x10'3/uL 04/05/2022 11:24 AM [facility] ABS. LYMPHOCYTES 2.60 1.00 - 4.80 x10'3/uL 04/05/2022 11:24 AM [facility] ABS. MONOCYTES 0.38 0.24 - 0.86 x10'3/uL 04/05/2022 11:24 AM [facility] ABS. EOSINOPHILS 0.23 0.04 - 0.36 x10'3/uL 04/05/2022 11:24 AM [facility] ABS. BASOPHILS 0.07 0.01 - 0.08 x10'3/uL 04/05/2022 11:24 AM [facility] ABS. IMMATURE GRANULOCYTES 0.02 0.00 - 0.49 x10'3/uL 04/05/2022 11:24 AM [facility] 04/05/2022 11:1 3 AM GENERAL SALES MANAGER Yasmin Valenzuela II, MD LABORATORY Final R esult [facility] [address] [place] [address], * (ABNORMAL) COMPREHENSIVE METABOLIC PANEL (04/05/2022 11:13 AM GENERAL SALES MANAGER) [facility] GLUCOSE 154(H) 70 - 99 MG/DL 04/05/2022 11:44 AM [facility] BUN 17 7 - 18 MG/DL 04/05/2022 11:44 AM [facility] CREATININE S/P/B 0.88 0.55 - 1.02 MG/DL 04/05/2022 11:44 AM [facility] SODIUM S/P/B 141 136 - 145 MMOL/L 04/05/2022 11:44 AM [facility] POTASSIUM S/P/B 4.0 3.5 - 5.1 MMOL/L 04/05/2022 11:44 AM [facility] CHLORIDE S/P/B 105 100 - 108 MMOL/L 04/05/2022 11:44 AM [facility] CO2 28.9 21 - 32 MMOL/L 04/05/2022 11:44 AM [facility] CALCIUM S/P/B 9.4 8.5 - 10.1 MG/DL 04/05/2022 11:44 AM [facility] BILIRUBIN TOTAL S/P/B 0.3 0.2 - 1.2 MG/DL 04/05/2022 11:44 AM [facility] Comment: THIS ASSAY IS NOT RECOMMENDED FOR PATIENTS UNDERGOING TREATMENT WITH ELTROMBOPAG DUE TO THE POTENTIAL FOR FALSELY ELEVATED RESULTS. TOTAL PROTEIN S/P/B 9.1(H) 6.4 - 8.2 G/DL 04/05/2022 11:44 AM [facility] ALBUMIN S/P/B 3.3(L) 3.4 - 5.0 G/DL 04/05/2022 11:44 AM [facility] AST 20 15 - 37 U/L 04/05/2022 11:44 AM [facility] ALT 24 14 - 55 U/L 04/05/2022 11:44 AM [facility] ALKALINE PHOSPHATASE S/P/B 149(H) 50 - 136 U/L 04/05/2022 11:44 AM [facility] ANION GAP 7.1 5 - 15 MMOL/L 04/05/2022 11:44 AM [facility] BUN CREATININE RATIO 19.3 6 - 26 04/05/2022 11:44 AM [facility] A/G RATIO 0.6(L) 1.0 - 2.0 RATIO 04/05/2022 11:44 AM [facility] GFR ESTIMATE 80(L) >90 ML/MIN/1.7 3 M2 04/05/2022 11:44 AM [facility] Comment: NOTE: eGFR is not calculated for patients <18 years of age. This is an estimated GFR calculation using the new CKD EPI creatinine equation without race and so does not require a correction factor for race. This estimated GFR should not be used for calculating drug doses. 04/05/2022 11:1 3 AM GENERAL SALES MANAGER us Yasmin Valenzuela II, MD LABORATORY Final R esult [facility] [address] [place] [address], * (ABNORMAL) HEMOGLOBIN, GLYCOSYLATED (04/05/2022 11:13 AM GENERAL SALES MANAGER) HGB A1C 8.0(H) <5.7 % 04/05/2022 3:46 PM GENERAL SALES MANAGER [facility] Comment: ADA GUIDELINES 2010 5.7 TO 6.4% INCREASED RISK OF DIABETES > OR = 6.5% CONSISTENT WITH DIABETES ESTIMATED AVG GLUCOSE 183 mg/dL 04/05/2022 3:46 PM GENERAL SALES MANAGER [facility] 04/05/2022 11:1 3 AM GENERAL SALES MANAGER Yasmin Valenzuela II, MD LABORATORY Final R esult [facility] [address] [place] [address], [place] [phone] * A1C (BACK OFFICE) (03/15/2022 10:35 AM GENERAL SALES MANAGER) HGB A1C 7.3 % [facility],[place] 03/15/2022 10:3 5 AM GENERAL SALES MANAGER Yasmin Valenzuela II, MD LABORATORY Final R esult [facility] [address] [place] [address], [place] [phone] documented in this encounter Visit Diagnoses Diagnosis Type 2 diabetes mellitus with diabetic neuropathic arthropathy, with long-term current use of insulin ([facility])- Primary Ulcer of right foot, limited to breakdown of skin ([facility]) Primary hypertension Unspecified essential hypertension Hypercholesteremia Pure hypercholesterolemia Chronic idiopathic constipation Unspecified constipation Muscle spasm Spasm of muscle Vision decreased Unspecified visual loss documented in this encounter Additional Health Concerns Assessment Noted Time PHQ-9 Depression Total Score: 0 03/08/19 22 9:30 AM GENERAL SALES MANAGER documented as of this encounter Care Teams Job Press Feeder Relationship Specialty Start Date End Date Yasmin Valenzuela II, MD [address] [place] [address] PCP - General FAMILY PRACTICE 03/09/21 documented as of this encounter
--- OUTSIDE RECORDS SUMMARY | 2024-03-02 22:25 | XMS_ITS | Encounter Summary ---
Author Organization [facility] Address [address] [place] [address]. [place] [address] [place] [address] Care Team Providers Care Tube Building Machine Operator Name Role Phone Colton SILVEIRA MD, Abiodun Rushing Primary Care Provider Victoriano Langston MD Unavailable [phone] Encounter Details Date Type Department Care Team (Latest Contact Info) Description 05/05/2022 Travel Social History Tobacco Use Types Packs/Day [...] suspected to have Coronavirus/COVID-19? No / Unsure 05/05/2022 10:15 AM CDT documented as of this encounter [...] st Contact Info) Description 03/14/2024 11:45 AM MEDIATOR Office Visit [facility] [phone] [facility] [address] [place] [address] 03/20/2024 11:30 AM MEDIATOR Office Visit [facility] Family Medicine - [address] [phone] Abiodun Segura II, MD [address] [place] [address] documented as of this encounter Visit Diagnoses Not on filedocumented in this encounter Additional Health Concerns Assessment Noted Time PHQ-9 Depression Total Score: 0 03/08/19 22 9:30 AM MEDIATOR documented as of this encounter Care Teams Tube Building Machine Operator Relationship Specialty Start Date End Date Abiodun Segura II, MD [address] [place] [address] PCP - General FAMILY PRACTICE 03/09/21 [place] [address] [place] [address] PODIATRY/SURGERY 05/05/22 documented as of this encounter
--- OUTSIDE RECORDS SUMMARY | 2024-03-02 22:25 | XMS_ITS | Encounter Summary ---
Author Organization [facility] Address [address] [place] [address]. [place] [address] [place] [address] Care Team Providers Care Picker And Sorter Load And Unload Name Role Phone Colton SILVEIRA MD, Abiodun Rushing Primary Care Provider Reason for Visit * Reason Onset Date Comments Quality Gap Closure 04/03/2022 Encounter Details Date Type Department Care Team (Latest Contact Info) Description 04/03/2022 Patient Outreach [facility] Family Medicine - [place] [address] [place] [address] Merced Wise MA Quality Gap Closure Social History Tobacco Use Types Packs/Day Years [...] Coronavirus/COVID-19? No / Unsure 03/15/2022 9:40 AM PRODUCTION ADMINISTRATIVE ASSISTANT documented as of this encounter Functional Status [...] Assessment Author Status No 12/17/2021 2:10 AM EMILEET Amanda Qureshi RN Active * Because of [...] Ballesteros RN Active documented in this encounter Progress Notes * Merced Wise MA - 04/03/2022 12:56 PM CST I am a patient quality advocate calling this patient on behalf of the virtual stand work team to assess the below quality gaps. If you need to contact me directly- my number is [phone]. Preventive Screenings: Breast Cancer Screening: Up to Date Notes: UTD Colorectal Cancer Screening: Requested Record Notes: Record requested Diabetic Eye Exam: Up to Date Notes: UTD Falls Risk Screening: N/A Notes: NA Tobacco Cessation: N/A Notes: NA Labs: BMP/CMP: Up to Date Notes: UTD-01/31/2022 Hemoglobin A1c: Up to Date Notes: UTD-7.3 on 03/15/2022 Lipid: Up to Date Notes: UTD-07/10/2021 Urine Albumin-Creatinine Ratio: Up to Date Notes: UTD-05/10/2021-Due soon Immunizations: Influenza: Patient Declined Notes: Declined Shingles: Needs Follow Up Notes: [facility] UCTION ADMINISTRATIVE ASSISTANT documented in this encounter Plan of Treatment Upcoming Encounters Date Type Department Care Team (Late st Contact Info) Description 03/14/2024 11:45 AM PRODUCTION ADMINISTRATIVE ASSISTANT Office Visit [facility] [phone] Marvin Mckeon MD [address] [facility] [address] [place] [address] 03/20/2024 11:30 AM PRODUCTION ADMINISTRATIVE ASSISTANT Office Visit [facility] Family Medicine - [place] [address] [place] [phone] Abiodun Segura II, MD [address] [place] [address] documented as of this encounter Visit Diagnoses Not on filedocumented in this encounter Additional Health Concerns Assessment Noted Time PHQ-9 Depression Total Score: 0 03/08/19 9:30 AM PRODUCTION ADMINISTRATIVE ASSISTANT documented as of this encounter Care Teams Picker And Sorter Load And Unload Relationship Specialty Start Date End Date Abiodun Segura II, MD [address] [place] [address] PCP - General FAMILY PRACTICE 03/09/21 documented as of this encounter
--- OUTSIDE RECORDS SUMMARY | 2024-03-02 22:25 | XMS_ITS | Encounter Summary ---
Author Organization [facility] Address [address] [place] [address]. [place], [place] [address] [place] [address] Care Team Providers Care Car Framer Name Role Phone Colton SILVEIRA MD, Abiodun Rushing Primary Care Provider Encounter Details Date Type Department Care Team (Latest Contact Info) Description 04/04/2022 Travel Social History Tobacco Use Types Packs/Day [...] Coronavirus/COVID-19? No / Unsure 04/04/2022 11:24 AM DELICATESSEN DEPARTMENT MANAGER documented as of this encounter Functional Status [...] st Contact Info) Description 03/14/2024 11:45 AM DELICATESSEN DEPARTMENT MANAGER Office Visit [facility] [phone] Marvin Mckeon MD [address] [facility] [address] [place] [phone] 03/20/2024 11:30 AM DELICATESSEN DEPARTMENT MANAGER Office Visit [facility] Family Medicine - [address] [place] [address] [phone] Abiodun Segura II, MD [address] [place] [phone] documented as of this encounter Visit Diagnoses Not on filedocumented in this encounter Additional Health Concerns Assessment Noted Time PHQ-9 Depression Total Score: 0 03/08/19 22 9:30 AM DELICATESSEN DEPARTMENT MANAGER documented as of this encounter Care Teams Car Framer Relationship Specialty Start Date End Date Abiodun Segura II, MD [address] [place] [phone] PCP - General FAMILY PRACTICE 03/09/21 documented as of this encounter
--- OUTSIDE RECORDS SUMMARY | 2024-03-02 22:25 | XMS_ITS | Encounter Summary ---
Author Organization [facility] Address [address] [place] [address]. [place] [address] [place] [address] Care Team Providers Care Stock Manager Name Role Phone Colton SILVEIRA MD, Abiodun Rushing Primary Care Provider Victoriano Langston MD Unavailable [phone] Encounter Details Date Type Department Care Team (Latest Contact Info) Description 06/26/2022 Travel Social History Tobacco Use Types Packs/Day [...] suspected to have Coronavirus/COVID-19? No / Unsure 06/26/2022 11:29 AM CDT documented as of this encounter [...] st Contact Info) Description 03/14/2024 11:45 AM SHIPPING & RECEIVING LEAD Office Visit [facility] [phone] Marvin Mckeon MD [facility] [address] [place] [address] 03/20/2024 11:30 AM SHIPPING & RECEIVING LEAD Office Visit [facility] Family Medicine - [address] [phone] Abiodun Segura II, MD [address] [place] [address] documented as of this encounter Visit Diagnoses Not on filedocumented in this encounter Additional Health Concerns Assessment Noted Time PHQ-9 Depression Total Score: 0 03/08/19 22 9:30 AM SHIPPING & RECEIVING LEAD documented as of this encounter Care Teams Stock Manager Relationship Specialty Start Date End Date Abiodun Segura II, MD [address] [place] [address] PCP - General FAMILY PRACTICE 03/09/21 [place] [address] [place] [address] PODIATRY/SURGERY 05/05/22 documented as of this encounter
--- OUTSIDE RECORDS SUMMARY | 2024-03-02 22:25 | XMS_ITS | Encounter Summary ---
Author Organization [facility] Address [address] [place] [address]. [place] [address] [place] [address] Care Team Providers Care Condenser Winder Name Role Phone Colton SILVEIRA MD, Abiodun Rushing Primary Care Provider Reason for Visit * Reason Onset Date Comments Record Request 04/04/2022 Encounter Details Date Type Department Care Team (Late st Contact Info) Description 04/04/2022 Telephone [facility] Family Medicine [place] [address] [place] [address] Abiodun Segura II, MD [address] [place] [address] Record Request Social History Tobacco Use Types [...] Coronavirus/COVID-19? No / Unsure 04/04/2022 11:24 AM DUMPSTER DRIVER documented as of this encounter Functional Status [...] documented in this encounter Progress Notes * Grisel Sanchez - 04/04/2022 7:50 AM CST I have faxed Dr Garcia for this patient's Colonoscopy results. I have also faxed Siobhan KHALIL for Colonoscopy on 04/07/2022. I have received the Colonoscopy results that were requested from Dr Ryan.Exam date 11/18/2020. I am faxing results to Dr Segura. STER DRIVER STER DRIVER STER DRIVER STER DRIVER documented in this encounter Plan of Treatment Upcoming Encounters Date Type Department Care Team (Late st Contact Info) Description 03/14/2024 11:45 AM DUMPSTER DRIVER Office Visit [facility] [phone] Marvin Mckeon MD [facility] [address] [place], [place] [address] 03/20/2024 11:30 AM DUMPSTER DRIVER Office Visit [facility] Family Medicine - [place] [address] [place] [phone] Abiodun Segura II, MD [address] [place] [address] documented as of this encounter Visit Diagnoses Not on filedocumented in this encounter Additional Health Concerns Assessment Noted Time PHQ-9 Depression Total Score: 0 03/08/19 9:30 AM DUMPSTER DRIVER documented as of this encounter Care Teams Condenser Winder Relationship Specialty Start Date End Date Abiodun Segura II, MD [address] [place], [place] [id number] PCP - General FAMILY PRACTICE 03/09/21 documented as of this encounter
--- OUTSIDE RECORDS SUMMARY | 2024-03-02 22:25 | XMS_ITS | Encounter Summary ---
Author Organization [facility] Address [address] [place] [address]. [place] [address] [place] [address] Care Team Providers Care Compliance Professional Name Role Phone Colton SILVEIRA MD, Abiodun Rushing Primary Care Provider Victoriano Langston MD Unavailable [phone] Encounter Details Date Type Department Care Team (Late st Contact Info) Description 06/26/2022 Orders Only [facility] Family Medicine - [place] [address] [place] [address] Abiodun Segura II, MD [address] [place] [address] Social History Tobacco Use Types [...] st Contact Info) Description 03/14/2024 11:45 AM CYBER REVERSE ENGINEER Office Visit [facility] [phone] Marvin Mckeon MD [facility] [address] [place] [address] 03/20/2024 11:30 AM CYBER REVERSE ENGINEER Office Visit [facility] Family Medicine - [place] [phone] Abiodun Segura II, MD [address] [place] [address] documented as of this encounter Results * (ABNORMAL) LIPID PANEL (06/26/2022 11:46 AM CDT) [facility] Signature CHOLESTEROL 184 <200 MG/DL 06/26/2022 12:20 PM CDT [facility] TRIGLYCERIDES 238(H) <150 MG/DL 06/26/2022 12:20 PM CDT [facility] HDL 44 >40.0 MG/DL 06/26/2022 12:20 PM T [facility] LDL (CALCULATED) 92 <100 MG/DL 06/26/2022 12:20 PM T [facility] NON HDL CHOLESTEROL 140(H) <130 MG/DL 06/26/2022 12:20 PM T [facility] CHOL/HDL RATIO 4.2 0.0 - 4.5 06/26/2022 12:20 PM T [facility] VLDL CALCULATION 48 5 - 55 MG/DL 06/26/2022 12:20 PM T [facility] LIPID INTERPRETATION 06/26/2022 12:20 PM T [facility] Comment: NIH CONCENSUS REPORT [...] ?HDL ?<40 ?--- ?LDL ? >=160 ?>=130 06/26/2022 11:4 6 AM CDT Abiodun Segura II, MD LABORATORY Final R esult Performing Organization Address City/State/[facility] Co de Phone Number [facility] [address] [place] [address], * (ABNORMAL) COMPREHENSIVE METABOLIC PANEL (06/26/2022 11:46 AM CDT) GLUCOSE 152(H) 70 - 99 MG/DL 06/26/2022 12:20 PM CDT [facility] BUN 16 7 - 18 MG/DL 06/26/2022 12:20 PM CDT [facility] CREATININE S/P/B 0.97 0.55 - 1.02 MG/DL 06/26/2022 12:20 PM CDT [facility] SODIUM S/P/B 136 136 - 145 MMOL/L 06/26/2022 12:20 PM CDT [facility] POTASSIUM S/P/B 4.0 3.5 - 5.1 MMOL/L 06/26/2022 12:20 PM CDT [facility] CHLORIDE S/P/B 105 100 - 108 MMOL/L 06/26/2022 12:20 PM CDT [facility] CO2 29.2 21 - 32 MMOL/L 06/26/2022 12:20 PM CDT [facility] CALCIUM S/P/B 9.4 8.5 - 10.1 MG/DL 06/26/2022 12:20 PM CDT [facility] BILIRUBIN TOTAL S/P/B 0.4 0.2 - 1.2 MG/DL 06/26/2022 12:20 PM CDT [facility] Comment: THIS ASSAY IS NOT RECOMMENDED FOR PATIENTS UNDERGOING TREATMENT WITH ELTROMBOPAG DUE TO THE POTENTIAL FOR FALSELY ELEVATED RESULTS. TOTAL PROTEIN S/P/B 8.6(H) 6.4 - 8.2 G/DL 06/26/2022 12:20 PM CDT [facility] ALBUMIN S/P/B 3.4 3.4 - 5.0 G/DL 06/26/2022 12:20 PM CDT [facility] AST 30 15 - 37 U/L 06/26/2022 12:20 PM CDT [facility] ALT 39 14 - 55 U/L 06/26/2022 12:20 PM CDT [facility] ALKALINE PHOSPHATASE S/P/B 135 50 - 136 U/L 06/26/2022 12:20 PM CDT [facility] ANION GAP 1.8(L) 5 - 15 MMOL/L 06/26/2022 12:20 PM CDT [facility] BUN CREATININE RATIO 16.6 6 - 26 06/26/2022 12:20 PM CDT [facility] A/G RATIO 0.7(L) 1.0 - 2.0 RATIO 06/26/2022 12:20 PM CDT [facility] GFR ESTIMATE 71(L) >90 ML/MIN/1.7 3 M2 06/26/2022 12:20 PM CDT [facility] Comment: NOTE: eGFR is not calculated for patients <18 years of age. This is an estimated GFR calculation using the new CKD EPI creatinine equation without race and so does not require a correction factor for race. This estimated GFR should not be used for calculating drug doses. 06/26/2022 11:4 6 AM CDT Abiodun Segura II, MD LABORATORY Final R esult [facility] [address] [place] [address], [place] [phone] * (ABNORMAL) CBC W/DIFF AUTOMATED (06/26/2022 11:46 AM CDT) WBC 8.1 4.5 - 11.0 x10'3/uL 06/26/2022 11:56 AM CDT [facility] RBC 3.98(L) 4.20 - 5.40 x10'6/uL 06/26/2022 11:56 AM CDT [facility] HGB 11.9(L) 12.0 - 16.0 G/DL 06/26/2022 11:56 AM CDT [facility] HCT 36.0(L) 38.0 - 48.0 % 06/26/2022 11:56 AM CDT [facility] MCV 90.5 81.0 - 99.0 FL 06/26/2022 11:56 AM CDT [facility] MCH 29.9 27.0 - 31.0 PG 06/26/2022 11:56 AM CDT [facility] MCHC 33.1 32.0 - 36.0 G/DL 06/26/2022 11:56 AM CDT [facility] RDW 13.3 11.5 - 14.5 % 06/26/2022 11:56 AM CDT [facility] PLT 272 130 - 400 x10'3/uL 06/26/2022 11:56 AM CDT [facility] MPV 10.8 9.3 - 12.2 FL 06/26/2022 11:56 AM T [facility] DIFFERENTIAL TYPE AUTOMATED DIFFERENTIAL 06/26/2022 11:56 AM CDT [facility] NEUTROPHILS % 57.3 % 06/26/2022 11:56 AM CDT [facility] LYMPHOCYTES % 36.4 % 06/26/2022 11:56 AM CDT [facility] MONOCYTES % 4.3 % 06/26/2022 11:56 AM T [facility] EOSINOPHILS 1.1 % 06/26/2022 11:56 AM CDT [facility] BASOPHILS 0.5 % 06/26/2022 11:56 AM CDT [facility] IMMATURE GRANS % 0.4 % 06/27/19 11:56 AM CDT [facility] ABS. NEUTROPHILS TOTAL 4.61 1.80 - 7.70 x10'3/uL 06/26/2022 11:56 AM T [facility] ABS. LYMPHOCYTES 2.93 1.00 - 4.80 x10'3/uL 06/26/2022 11:56 AM CDT [facility] ABS. MONOCYTES 0.35 0.24 - 0.86 x10'3/uL 06/26/2022 11:56 AM CDT [facility] ABS. EOSINOPHILS 0.09 0.04 - 0.36 x10'3/uL 06/26/2022 11:56 AM CDT [facility] ABS. BASOPHILS 0.04 0.01 - 0.08 x10'3/uL 06/26/2022 11:56 AM CDT [facility] ABS. IMMATURE GRANULOCYTES 0.03 0.00 - 0.49 x10'3/uL 06/26/2022 11:56 AM CDT [facility] 06/26/2022 11:4 6 AM CDT Abiodun Segura II, MD LABORATORY Final R esult [facility] [address] [place] [address], [place] [phone] * (ABNORMAL) HEMOGLOBIN, GLYCOSYLATED (06/26/2022 11:46 AM CDT) HGB A1C 8.3(H) <5.7 % 06/26/2022 12:58 PM CDT [facility] Comment: ADA GUIDELINES 2010 5.7 TO 6.4% INCREASED RISK OF DIABETES > OR = 6.5% CONSISTENT WITH DIABETES ESTIMATED AVG GLUCOSE 192 mg/dL 06/26/2022 12:58 PM CDT [facility] 06/26/2022 11:4 6 AM CDT Abiodun Segura II, MD LABORATORY Final R esult [facility] [address] [place] [address], documented in this encounter Visit Diagnoses Diagnosis Hypercholesteremia- Primary Pure hypercholesterolemia Primary hypertension Unspecified essential hypertension Type 2 diabetes mellitus with retinopathy, with long-term current use of insulin, macular edema presence unspecified, unspecified laterality, unspecified retinopathy severity (CMS/HCC HHS/HCC) documented in this encounter Additional Health Concerns Assessment Noted Time PHQ-9 Depression Total Score: 0 03/08/19 22 9:30 AM CYBER REVERSE ENGINEER documented as of this encounter Care Teams Compliance Professional Relationship Specialty Start Date End Date Abiodun Segura II, MD [address] [place] [address] PCP - General FAMILY PRACTICE 03/09/21 [place] [address] [place] [address] PODIATRY/SURGERY 05/05/22 documented as of this encounter
--- OUTSIDE RECORDS SUMMARY | 2024-03-02 22:25 | XMS_ITS | Encounter Summary ---
Author Organization [facility] Address [facility] [place] [address] [place] [address] Care Team Providers Care Healthcare Administrative Assistant Name Role Phone Colton SILVEIRA MD, Abiodun Rushing Primary Care Provider Victoriano Langston MD Unavailable [phone] Reason for Visit * Auth/Cert (Routine) Specialty Diagnoses / Procedures Referred By Contxavier t Referred To Contact Diagnoses Soft tissue infection of foot Soft tissue infection of foot Procedures NONE Referral ID Status Reason Start Date Expiration Date Visits Re quested Visits Authorized [id number] 1 1 Encounter Details Date Type Department Care Team (Late st Contact Info) Description 09/06/2022 12:41 PM CDT Anesthesia Event [place] [address] Douglas Loja MD [address] [place] [address] [address] [place] [address] Anesthesia Record Procedure Summary Procedure Name Responsible Anesthesiologist Anesthesia Start Time Anesthesia Stop Time BONE BIOPSY RIGHT FOOT FIRST AND SECOND TOES (Right: Foot) Douglas Loja MD 09/06/22 1241 09/06/22 1324 Events Date Time Event Comment 09/06/2022 1221 1221 AN Anesthesia Prepped 1230 AN THREAD MILLING MACHINE SET UP OPERATOR Prepped 1241 An Start Patient ID and consent checked and patient reassessed. 1244 An Start Data 1246 Preoxygenation 1248 An Induction The patient was reevaluated immediately before moderate or deep sedation use and before anesthesia induction. 1249 An LMA 1250 Anesthesia Ready 1307 An Emergence 1312 LMA Removed 1312 Face Mask Applied 1315 an stop data 1324 Post Anesthetic Care Handoff I completed my handoff to the receiving nurse during which we: 1. Identified the patient 2. Identified the responsible provider 3. Reviewed the pertinent medical history 4. Discussed the surgical course 5. Reviewed intra-op anesthesia management and issues during anesthesia 6. Set expectations for post-procedure period 7. Allowed opportunity for questions and acknowledgement of understanding. 1324 An Stop Meds Name Total phenylephrine (SAL-SYNEPHRINE) injection 650 mcg dexamethasone (DECADRON) injection 8 mg lidocaine (PF) (XYLOCAINE) 2% injection 100 mg propofol (DIPRIVAN) 200 mg/20 mL injecti on 200 mg midazolam 2 mg/2 mL injection 2 mg albumin human 5% solution 250 mL ondansetron (ZOFRAN) 4 mg/2 mL injection 4 mg lactated ringers infusion 400 mL * Agents Name O2 Air Inspired Sevoflurane Sevoflurane Ancillary O2 * Blood No blood administrations on file. Lines, Drains, and Airways Type Details Placement Removal Peripheral IV Placement Date: 08/19 11/11; Placement Time: 1210; Placed Outside of This Facility?: No; Size: 20 G; Orientation: Left; Location: Forearm; Site Prep: Alcohol; Local Anesthetic: None; Insertion attempts: 1; Ultrasound-guided Placement?: No; Patient Tolerance: Tolerated well; Removal Date: 09/09/22; Removal Time: 1114; Removal Reason: Patient Discharged 09/06/22 1210 by Roro Alexander RN 09/09/22 1114 by Rom Dukes CNA Supraglottic Airway Placement Date: 08/19 11/11; Placement Time: 1249; Airway Device: LMA; LMA Size: 4; Placed Outside of This Facility?: No; Placed By: THREAD MILLING MACHINE SET UP OPERATOR; Style: Other (iGel); Insertion Attempts:1; Breath Sounds:Clear bilaterally, Equal bilaterally; Breath Sound:Clear; Placement Verified By: Capnography, Auscultation, Chest Rise; Extubation Assessment: Suctioned, Tolerated well, Patient spontaneously breathing, Able to swallow, Atraumatic, Deep breathes w/equal chest movements; Removal Date: 09/06/22; Removal Time: 131; Removal Person: THREAD MILLING MACHINE SET UP OPERATOR; Removal Reason: End of Case 09/06/22 1249 by Pilar Mcmahon CRNA 09/06/22 1313 by Pilar Mcmahon CRNA Surgical/Incision 09/06/22; 1312; Surg ical Wound; Foot; Right; 2x2 gauze, coban to first and second toes on right foot; 09/09/22; 1350 09/06/22 1312 by Dina Long RN 09/09/22 1350 by Automatic Discharge Provider documented in this [...] Recorded Patient Health Questionnaire-2 Score 0 05/05/2022 [facility] [place] of Occupat ional Health - Occupational Stress [...] PM EMILEET Azeem Tom RN Active documented as of this encounter Mental Status * Because of a physical, mental, or emotional condition, do you have serious difficulty concentrating, remembering, or making decisions? Answer Entry Date Author Status Yes 09/03/2022 9:25 PM EMILEET Azeem Tom RN Active documented in this encounter OR Notes * Anesthesia Postprocedure Evaluation - Cyril Garcia CRNA - 09/07/2022 9:29 AM CDT Anesthesia Post-op Note Lena Mcneal Procedure(s): BONE BIOPSY RIGHT FOOT FIRST AND SECOND TOES (Right: Foot) Anesthesia type: general Vitals: 09/07/22 0802 BP: 106/56 Vitals: 09/07/22 0802 Pulse: 80 Vitals: 09/07/22 0802 Resp: 18 Vitals: 09/07/22 0424 Temp: 36.5 ??C Vitals: 09/07/22 0802 SpO2: 100% Patient Location: Inpatient Unit Level of Consciousness: awake, alert and oriented Pain Management: adequate analgesia Airway Patency: patent Respiratory Status: acceptable Cardiovascular Status: acceptable and stable Post-Op Nausea: none Postoperative Hydration: euvolemic Comments: Blood pressure 106/56, pulse 80, temperature 36.5 ??C, temperature source Oral, resp. rate 18, height 5' 6 (1.676 m), weight 90.4 kg (199 lb 4.7 oz), last menstrual period 10/29/2004, [id number] %. No notable events documented. * Anesthesia Postprocedure Evaluation - Douglas Loja MD - 09/07/2022 6:30 AM CDT Anesthesia Post-op Note Lena Mcneal Procedure(s): BONE BIOPSY RIGHT FOOT FIRST AND SECOND TOES (Right: Foot) Anesthesia type: general Vitals: 09/07/22423 BP: 130/66 Vitals: 09/07/22423 Pulse: 84 Vitals: 09/07/22423 Resp: 19 Vitals: 09/07/22423 Temp: 36.5 ??C Vitals: 09/07/22423 SpO2: 98% Patient Location: PACU Level of Consciousness: awake Pain Management: adequate analgesia Airway Patency: patent Respiratory Status: acceptable Cardiovascular Status: acceptable Post-Op Nausea: none Postoperative Hydration: euvolemic No notable events documented. * Anesthesia Preprocedure Evaluation - Douglas Loja MD - 09/06/2022 11:55 AM CDT Images from the original note were not included. Anesthesia ROS/MED History Reviewed: Patient summary , ECG, Family history anesthesia, Anesthesia history , Medications , Labs , Images/Studies Pre-Anesthetic State: alert, awake and responds appropriately no history of anesthetic complications Pulmonary (-) COPD, sleep apnea, asthma Cardiovascular (+) hypertension, hyperlipidemia(-) Valvular problems/Murmurs, past OK, CHF, arrhythmia ROS comment: ECHO 07/10/2021 ++++++++++++++++++++++++++++++++++++ SUMMARY: ++++++++++++++++++++++++++++++++++++ The left ventricular systolic function is normal. Estimated left ventricular ejection fraction is 55-60%. Left ventricular diastolic function is normal. Wall motion appears normal in all segments. No significant valvular abnormality. 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 Substance Use (-) smoker, vaping user GI/Hepatic/Renal (-) GERD, PUD, liver disease, renal disease Endo/Other (+) diabetes mellitus (-) normal weight range, blood dyscrasia GENERAL COMMENTS Review of patient's allergies indicates: Fish oil, Amoxicillin, and Penicillins NPO Past Medical History: No date: Arthritis No date: Charcot foot due to diabetes mellitus (CMS/HCC) Comment: LEFT FOOT No date: Constipation No date: COVID-19 No date: Diabetes mellitus (CMS/HCC) No date: Diabetic neuropathy ([facility]) No date: High cholesterol No date: Hypertension No date: Renal disorder Comment: 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 No date: UTI (urinary tract infection) No date: Vision decreased Comment: blind right eye, poor vision left eye Past Surgical History: No date: AMPUTATION TOE; Left Comment: 2ND AND 3RD TOE No date: BLADDER SURGERY No date: EYE SURGERY 2004, 2019: HYSTERECTOMY Comment: hysterectomy, cervical surgery No date: RETINAL DETACHMENT SURGERY; Right NPO Status: Physical Evaluation Airway Mallampati: III Dental (crowns) Pulmonary Breath sounds clear to auscultation Cardiovascular Rhythm: regular Rate: normal STOP-Bang Assessment: Anesthesia Plan ASA 3 Intravenous Induction Anesthesia type: general Plan for Airway: LMA Plan for Post-op Pain Plan: as per surgeon and oral pain medication GA w/ LMA Informed Consent Anesthetic plan and risks discussed with patient of whom consent was obtained. . documented in this encounter Plan of Treatment Upcoming Encounters Date Type Department Care Team (Late st Contact Info) Description 03/14/2024 11:45 AM CRYSTAL ATTACHER Office Visit [facility] [phone] Marvin Mckeon MD Three [facility] [address] [place] [address] 03/20/2024 11:30 AM CRYSTAL ATTACHER Office Visit [facility] Family Medicine - [address] [phone] Abiodun Segura II, MD [address] [place] [id number] (work) documented as of this encounter Goals [...] MAR Action Action Date Dose Rate Site albumin human 5 % solution Intravenous, PRN, Starting on Sun09/06/22 at 1302, Until Sun09/06/22 at 1324, Anesthesia Intra-Op Given 09/06/2022 1:02 PM CDT 250 mLs dexamethasone (DECADRON) injection Intravenous, PRN, Starting on Sun09/06/22 at 1254, Until Sun09/06/22 at 1324, Anesthesia Intra-Op Given 09/06/2022 12:54 PM CDT 8 mg lactated ringers infusion Intravenous, Continuous PRN, Starting on Sun09/06/22 at 1241, Until Sun09/06/22 at 1324, Anesthesia Intra-Op New Bag 09/06/2022 12:41 PM CDT lidocaine (PF) (XYLOCAINE) 2 % injection Intravenous, PRN, Starting on Sun09/06/22 at 1248, Until Sun09/06/22 at 1324, Anesthesia Intra-Op Given 09/06/2022 12:48 PM CDT 100 mg midazolam (VERSED) injection Intravenous, PRN, Starting on Sun09/06/22 at 1241, Until Sun09/06/22 at 1324, Anesthesia Intra-Op Given 09/06/2022 12:41 PM CDT 2 mg ondansetron (ZOFRAN) injection Intravenous, PRN, Starting on Sun09/06/22 at 1305, Until Sun09/06/22 at 1324, Anesthesia Intra-Op Given 09/06/2022 1:05 PM CDT 4 mg phenylephrine (SAL-SYNEPHRINE) injection Intravenous, PRN, Starting on Sun09/06/22 at 1253, Until Sun09/06/22 at 1324, Anesthesia Intra-Op Given 09/06/2022 1:08 PM CDT 50 mcg Given 09/06/2022 1:05 PM CDT 150 mcg Given 09/06/2022 1:01 PM CDT 150 mcg propofol (DIPRIVAN) IV bolus Intravenous, PRN, Starting on Sun09/06/22 at 1248, Until Sun09/06/22 at 1324, Anesthesia Intra-Op Given 09/06/2022 12:48 PM CDT 200 mg documented in this encounter Additional Health Concerns Assessment Noted Time PHQ-9 Depression Total Score: 0 03/08/19 9:30 AM CRYSTAL ATTACHER documented as of this encounter Care Teams Healthcare Administrative Assistant Relationship Specialty Start Date End Date Abiodun Segura II, MD [address] [place] [address] PCP - General FAMILY PRACTICE 03/09/21 [place] [address] [place] [address] PODIATRY/SURGERY 05/05/22 documented as of this encounter
--- OUTSIDE RECORDS SUMMARY | 2024-03-02 22:25 | XMS_ITS | Encounter Summary ---
Author Organization [facility] Address [address] [place] [address]. [place] [address] [place] [address] Care Team Providers Care Assembler Unit Name Role Phone Colton SILVEIRA MD, Abiodun Rushing Primary Care Provider Victoriano Langston MD Unavailable [phone] Encounter Details Date Type Department Care Team (Late st Contact Info) Description 06/26/2022 11:31 AM CDT - 06/26/2022 11:59 PM T Hospital Encounter [facility] [place], [place] [id number] Abiodun Segura II, MD [address] [place] [address] Discharge Disposition: Home or Self Care [...] Qureshi RN Active documented in this encounter Medications at Time of Discharge acidophilus (FLORAJEN) capsule Take 1 capsule by mouth 2 (two) times daily. 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 90 tablet 5 3 10/12/19 23 dulaglutide (TRULICITY) 1.5 MG/0.5ML injectionIndication s:Type 2 diabetes mellitus with diabetic neuropathic arthropathy, with long-term current use of insulin ([facility] HHS/HCC) Inject 3 mg into the skin once a week. 4 mL 5 3 09/04/19 23 dulaglutide (TRULICITY) 1.5 MG/0.5ML injectionIndication s:Type 2 diabetes mellitus with diabetic neuropathic arthropathy, with long-term current use of insulin ([facility] HHS/HCC) Inject 1.5 mg into the skin once a week. 4 pen 1 3 09/04/19 23 dulaglutide (TRULICITY) 3 MG/0.5ML injectionIndication s:diabetes Inject 3 mg into the skin once a week. Indications: diabetes Fridays 6 mL 3 3 09/21/19 23 HUMALOG MIX 75/25 (75-25) 100 UNIT/ML SuspensionIndicatio ns:Type 2 diabetes mellitus with retinopathy, with long-term current use of insulin, macular edema presence unspecified, unspecified laterality, unspecified retinopathy severity ([facility] HHS/HCC) INJECT 60 UNITS SUBCUTANEOUSLY ONCE DAILY IN THE MORNING AND 55 ONCE DAILY IN THE EVENING 40 mL 3 08/18/19 23 HYDROcodone-acetami nophen (NORCO) 5-325 MG tabletIndications:A [...] Indications: Burning Feeling and Itching 2 10/12/19 lisinopril (PRINIVIL) 40 MG tabletIndications:h ypertension Take 1 tablet by mouth once daily 90 tablet 3 2 09/10/19 omeprazole 40 MG capsuleIndications: Esophagitis due to [...] health clinician.] 90 tablet 3 2 06/15/19 traMADol (ULTRAM) 50 MG tabletIndications:A cute Pain < 3 Day Supply Take 1 tablet (50 mg total) by mouth every 6 (six) hours as needed. Indications: Acute Pain < 3 Day Supply 12 tablet 2 09/04/19 documented as of this encounter Progress Notes * Abiodun Segura II, MD - 06/26/2022 12:30 PM CDT Lab results reviewed. Minor abnormalities noted. Will review with patient at upcoming appointment and make adjustments if needed. documented in this encounter Plan of Treatment Upcoming Encounters Date Type Department Care Team (Late st Contact Info) Description 03/14/2024 11:45 AM SIGN MANUFACTURER Office Visit [facility] [address] Marvin Mckeon MD [address] [facility] [address] [place] [address] 03/20/2024 11:30 AM SIGN MANUFACTURER Office Visit [facility] - [place] [address] [place] [phone] Abiodun Segura II, MD [address] [place] [address] documented as of this encounter Procedures Procedure Name Priority Date/Time Associated Diagnosis Comments HEMOGLOBIN, GLYCOSYLATED Routine 06/26/2022 11:46 AM CDT Type 2 diabetes mellitus with retinopathy, with long-term current use of insulin, macular edema presence unspecified, unspecified laterality, unspecified retinopathy severity ([facility]/HCC [facility]) COMPREHENSIVE METABOLIC PANEL Routine 06/26/2022 11:46 AM CDT Primary hypertension LIPID PANEL Routine 06/26/2022 11:46 AM CDT Hypercholesteremia CBC W/DIFF AUTOMATED Routine 06/26/2022 11:46 AM CDT Primary hypertension documented in this encounter Results * (ABNORMAL) LIPID PANEL (06/26/2022 11:46 AM CDT) CHOLESTEROL 184 <200 MG/DL 06/26/2022 12:20 PM CDT [facility] TRIGLYCERIDES 238(H) <150 MG/DL 06/26/2022 12:20 PM CDT [facility] HDL 44 >40.0 MG/DL 06/26/2022 12:20 PM CDT [facility] LDL (CALCULATED) 92 <100 MG/DL 06/26/2022 12:20 PM CDT [facility] NON HDL CHOLESTEROL 140(H) <130 MG/DL 06/26/2022 12:20 PM CDT [facility] CHOL/HDL RATIO 4.2 0.0 - 4.5 06/26/2022 12:20 PM T [facility] VLDL CALCULATION 48 5 - 55 MG/DL 06/26/2022 12:20 PM T [facility] LIPID INTERPRETATION 06/26/2022 12:20 PM T [facility] Comment: NIH CONCENSUS REPORT [...] Segura II, MD LABORATORY Final R esult [facility] [address] [place] [address], * (ABNORMAL) COMPREHENSIVE METABOLIC PANEL (06/26/2022 11:46 AM CDT) GLUCOSE 152(H) 70 - 99 MG/DL 06/26/2022 12:20 PM CDT [facility] BUN 16 7 - 18 MG/DL 06/26/2022 12:20 PM CDT [facility] CREATININE S/P/B 0.97 0.55 - 1.02 MG/DL 06/26/2022 12:20 PM CDT [facility] SODIUM S/P/B 136 136 - 145 MMOL/L 06/26/2022 12:20 PM CDT [facility] POTASSIUM S/P/B 4.0 3.5 - 5.1 MMOL/L 06/26/2022 12:20 PM CDT [facility] CHLORIDE S/P/B 105 100 - 108 MMOL/L 06/26/2022 12:20 PM CDT [facility] CO2 29.2 21 - 32 MMOL/L 06/26/2022 12:20 PM CDT [facility] CALCIUM S/P/B 9.4 8.5 - 10.1 MG/DL 06/26/2022 12:20 PM CDT [facility] BILIRUBIN TOTAL S/P/B 0.4 0.2 - 1.2 MG/DL 06/26/2022 12:20 PM T [facility] Comment: THIS ASSAY IS NOT RECOMMENDED FOR PATIENTS UNDERGOING TREATMENT WITH ELTROMBOPAG DUE TO THE POTENTIAL FOR FALSELY ELEVATED RESULTS. TOTAL PROTEIN S/P/B 8.6(H) 6.4 - 8.2 G/DL 06/26/2022 12:20 PM T [facility] ALBUMIN S/P/B 3.4 3.4 - 5.0 G/DL 06/26/2022 12:20 PM T [facility] AST 30 15 - 37 U/L 06/26/2022 12:20 PM T [facility] ALT 39 14 - 55 U/L 06/26/2022 12:20 PM T [facility] ALKALINE PHOSPHATASE S/P/B 135 50 - 136 U/L 06/26/2022 12:20 PM T [facility] ANION GAP 1.8(L) 5 - 15 MMOL/L 06/26/2022 12:20 PM T [facility] BUN CREATININE RATIO 16.6 6 - 26 06/26/2022 12:20 PM T [facility] A/G RATIO 0.7(L) 1.0 - 2.0 RATIO 06/26/2022 12:20 PM [facility] GFR ESTIMATE 71(L) >90 ML/MIN/1.7 3 M2 06/26/2022 12:20 PM [facility] Comment: NOTE: eGFR is not calculated for patients <18 years of age. This is an estimated GFR calculation using the new CKD EPI creatinine equation without race and so does not require a correction factor for race. This estimated GFR should not be used for calculating drug doses. 06/26/2022 11:4 6 AM CDT Abiodun Segura II, MD LABORATORY Final R esult [facility] [address] [place] [address], * (ABNORMAL) CBC W/DIFF AUTOMATED (06/26/2022 11:46 AM CDT) [facility] WBC 8.1 4.5 - 11.0 x10'3/uL 06/26/2022 11:56 AM CDT [facility] RBC 3.98(L) 4.20 - 5.40 x10'6/uL 06/26/2022 11:56 AM CDT [facility] HGB 11.9(L) 12.0 - 16.0 G/DL 06/26/2022 11:56 AM CDT [facility] HCT 36.0(L) 38.0 - 48.0 % 06/26/2022 11:56 AM CDT [facility] MCV 90.5 81.0 - 99.0 FL 06/26/2022 11:56 AM CDT [facility] MCH 29.9 27.0 - 31.0 PG 06/26/2022 11:56 AM CDT [facility] MCHC 33.1 32.0 - 36.0 G/DL 06/26/2022 11:56 AM CDT [facility] RDW 13.3 11.5 - 14.5 % 06/26/2022 11:56 AM CDT [facility] PLT 272 130 - 400 x10'3/uL 06/26/2022 11:56 AM CDT [facility] MPV 10.8 9.3 - 12.2 FL 06/26/2022 11:56 AM CDT [facility] DIFFERENTIAL TYPE AUTOMATED DIFFERENTIAL 06/26/2022 11:56 AM CDT [facility] NEUTROPHILS % 57.3 % 06/26/2022 11:56 AM CDT [facility] LYMPHOCYTES % 36.4 % 06/26/2022 11:56 AM CDT [facility] MONOCYTES % 4.3 % 06/26/2022 11:56 AM CDT [facility] EOSINOPHILS 1.1 % 06/26/2022 11:56 AM CDT [facility] BASOPHILS 0.5 % 06/26/2022 11:56 AM CDT [facility] IMMATURE GRANS % 0.4 % 06/27/19 11:56 AM CDT [facility] ABS. NEUTROPHILS TOTAL 4.61 1.80 - 7.70 x10'3/uL 06/26/2022 11:56 AM CDT [facility] ABS. LYMPHOCYTES 2.93 1.00 - 4.80 x10'3/uL 06/26/2022 11:56 AM CDT [facility] ABS. MONOCYTES 0.35 0.24 - 0.86 x10'3/uL 06/26/2022 11:56 AM CDT [facility] ABS. EOSINOPHILS 0.09 0.04 - 0.36 x10'3/uL 06/26/2022 11:56 AM CDT [facility] ABS. BASOPHILS 0.04 0.01 - 0.08 x10'3/uL 06/26/2022 11:56 AM CDT [facility] ABS. IMMATURE GRANULOCYTES 0.03 0.00 - 0.49 x10'3/uL 06/26/2022 11:56 AM T [facility] 06/26/2022 11:4 6 AM CDT Abiodun Segura II, MD LABORATORY Final R esult Performing Organization Address City/[facility]/ZIP Co de Phone Number [facility] [address] [place] [address], * (ABNORMAL) HEMOGLOBIN, GLYCOSYLATED (06/26/2022 11:46 AM CDT) HGB A1C 8.3(H) <5.7 % 06/26/2022 12:58 PM CDT [facility] Comment: ADA GUIDELINES 2010 5.7 TO 6.4% INCREASED RISK OF DIABETES > OR = 6.5% CONSISTENT WITH DIABETES ESTIMATED AVG GLUCOSE 192 mg/dL 06/26/2022 12:58 PM CDT [facility] 06/26/2022 11:4 6 AM CDT Abiodun Segura II, MD LABORATORY Final R esult Performing Organization Address [facility] Co de Phone Number [facility] [address] [place] [address], documented in this encounter Visit Diagnoses Diagnosis Type 2 diabetes mellitus with retinopathy, with long-term current use of insulin, macular edema presence unspecified, unspecified laterality, unspecified retinopathy severity ([facility] HHS/HCC) Primary hypertension Unspecified essential hypertension Hypercholesteremia Pure hypercholesterolemia documented in this encounter Additional Health Concerns Assessment Noted Time PHQ-9 Depression Total Score: 0 03/08/19 22 9:30 AM SIGN MANUFACTURER documented as of this encounter Care Teams Assembler Unit Relationship Specialty Start Date End Date Abiodun Segura II, MD [address] [place] [address] PCP - General FAMILY PRACTICE 03/09/21 [place] [address] [place] [address] PODIATRY/SURGERY 05/05/22 documented as of this encounter
--- OUTSIDE RECORDS SUMMARY | 2024-03-02 22:25 | XMS_ITS | Encounter Summary ---
Author Organization [facility] Address [address] [place] [address]. [place] [address] [place] [address] Care Team Providers Care Battalion Fire Chief Name Role Phone Colton SILVEIRA MD, Abiodun Rushing Primary Care Provider Reason for Visit * Reason Onset Date Comments Medication 04/17/2022 Encounter Details Date Type Department Care Team (Late st Contact Info) Description 04/17/2022 Telephone [facility] Family Medicine [place] [address] [place] [address] Abiodun Segura II, MD [address] [place] [address] Medication Social History Tobacco Use Types Packs/Day Years [...] Coronavirus/COVID-19? No / Unsure 04/04/2022 11:24 AM GRANITE COUNTERTOP INSTALLER documented as of this encounter Functional Status [...] documented in this encounter Progress Notes * Anderson Bravo MD - 04/17/2022 2:38 PM CST We can switch to Trulicity 1.5 mg weekly for now and switch back to 3.0 mg when available. ITE COUNTERTOP INSTALLER * Debra Cruz - 04/17/2022 2:11 PM CST [facility] called in wanting to know if the following script for TRULICITY can be given with 1MG doasge. The 3MG doasge is on back order at the following [facility] and surroundings as well. ITE COUNTERTOP INSTALLER documented in this encounter Plan of Treatment Upcoming Encounters Date Type Department Care Team (Late st Contact Info) Description 03/14/2024 11:45 AM GRANITE COUNTERTOP INSTALLER Office Visit [facility] [address] Marvin Mckeon MD Three [facility] [address] [place], [place] [phone] 03/20/2024 11:30 AM GRANITE COUNTERTOP INSTALLER Office Visit [facility] Family [facility] - [place] [address] [place] [phone] Abiodun Segura II, MD [address] [place] [address] documented as of this encounter Visit Diagnoses Not on filedocumented in this encounter Additional Health Concerns Assessment Noted Time PHQ-9 Depression Total Score: 0 03/08/19 9:30 AM GRANITE COUNTERTOP INSTALLER documented as of this encounter Care Teams Battalion Fire Chief Relationship Specialty Start Date End Date Abiodun Segura II, MD [address] [place], [place] [phone] PCP - General FAMILY PRACTICE 03/09/21 documented as of this encounter
--- OUTSIDE RECORDS SUMMARY | 2024-03-02 22:25 | XMS_ITS | Encounter Summary ---
Author Organization [facility] Address [address] [place] [address]. [place] [address] [place] [address] Care Team Providers Care Flying Shear Operator Name Role Phone Colton SILVEIRA MD, Abiodun Rushing Primary Care Provider Reason for Visit * Reason Onset Date Comments Medication Problem 04/21/2022 Encounter Details Date Type Department Care Team (Late st Contact Info) Description 04/21/2022 Telephone [facility] Family Medicine - [place] [address] [place] [address] Abiodun Segura II, MD [address] [place] [address] Medication Problem Social History Tobacco [...] Coronavirus/COVID-19? No / Unsure 04/04/2022 11:24 AM DESIGN TECHNOLOGY TEACHER documented as of this encounter Functional Status [...] documented in this encounter Progress Notes * Yaakov Javier MD - 04/22/2022 8:25 AM CSTAddended by: YAAKOV JAVIER on: 04/22/2022 08:25 AM Modules accepted: Orders GN TECHNOLOGY TEACHER * Sydney Cobos MA - 04/21/2022 11:14 AM CST [facility] Can they switch to 1.5 mg Trulicity since 3 mg is on back order? Patient injects 1 syringe subcutaneously once a week on fridays GN TECHNOLOGY TEACHER documented in this encounter Plan of Treatment Upcoming Encounters Date Type Department Care Team (Late st Contact Info) Description 03/14/2024 11:45 AM DESIGN TECHNOLOGY TEACHER Office Visit [facility] [phone] Marvin Mckeon MD Three [facility] [address] [place] [address] 03/20/2024 11:30 AM DESIGN TECHNOLOGY TEACHER Office Visit [facility] Family [facility] - [place] [address] [place] [phone] Abiodun Segura II, MD [address] [place], [place] [phone] documented as of this encounter Visit Diagnoses Diagnosis Type 2 diabetes mellitus with diabetic neuropathic arthropathy, with long-term current use of insulin ([facility])- Primary documented in this encounter Additional Health Concerns Assessment Noted Time PHQ-9 Depression Total Score: 0 03/08/19 9:30 AM DESIGN TECHNOLOGY TEACHER documented as of this encounter Care Teams Flying Shear Operator Relationship Specialty Start Date End Date Abiodun Segura II, MD [address] [place] [phone] PCP - General FAMILY PRACTICE 03/09/21 documented as of this encounter
--- OUTSIDE RECORDS SUMMARY | 2024-03-02 22:25 | XMS_ITS | Encounter Summary ---
Author Organization [facility] Address [address] [place] [address]. [place] [address] [place] [address] Care Team Providers Care Contract Associate Name Role Phone Colton SILVEIRA MD, Abiodun Rushing Primary Care Provider Victoriano Langston MD Unavailable [phone] Reason for Visit * Reason Onset Date Comments Medication Request 05/22/2022 Encounter Details Date Type Department Care Team (Late st Contact Info) Description 05/22/2022 Telephone [facility] Family Medicine - [place] [address] [place] [address] Abiodun Segura II, MD [address] [place] [address] Medication Request Social History Tobacco [...] in this encounter Progress Notes * Renee Cuevas - 05/22/2022 10:18 AM CDT [facility] [place] is requesting a new script for trulicity 3mg pharmacy [phone] documented in this encounter Plan of Treatment Upcoming Encounters Date Type Department Care Team (Late st Contact Info) Description 03/14/2024 11:45 AM STRINGED INSTRUMENT REPAIRER Office Visit [facility] [phone] Marvin Mckeon MD Three [facility] [address] [place] [address] 03/20/2024 11:30 AM STRINGED INSTRUMENT REPAIRER Office Visit [facility] Family [facility] - [place] [address] [place] [phone] Abiodun Segura II, MD [address] [place] [address] documented as of this encounter Visit Diagnoses Diagnosis Type 2 diabetes mellitus with diabetic neuropathic arthropathy, with long-term current use of insulin ([facility]) documented in this encounter Additional Health Concerns Assessment Noted Time PHQ-9 Depression Total Score: 0 03/08/19 22 9:30 AM STRINGED INSTRUMENT REPAIRER documented as of this encounter Care Teams Contract Associate Relationship Specialty Start Date End Date Abiodun Segura II, MD [address] [place] [id number] PCP - General FAMILY PRACTICE 03/09/21 [place] [address] [place] [address] PODIATRY/SURGERY 05/05/22 documented as of this encounter
--- OUTSIDE RECORDS SUMMARY | 2024-03-02 22:25 | XMS_ITS | Encounter Summary ---
Author Organization [facility] Address [address] [place] [address]. [place] [address] [place] [address] Care Team Providers Care Medical Microbiologist Name Role Phone Colton SILVEIRA MD, Abiodnu Rushing Primary Care Provider Victoriano Langston MD Unavailable [phone] Reason for Visit * Reason Onset Date Comments Lab Results 06/26/2022 Encounter Details Date Type Department Care Team (Late st Contact Info) Description 06/26/2022 Telephone [facility] Family Medicine - [place] [address] [place] [address] Abiodun Segura II, MD [address] [place] [address] Lab Results Social History Tobacco Use Types Packs/Day [...] in this encounter Progress Notes * Mariangel Phililps MA - 06/26/2022 9:42 AM CDT Pt aware * Mariangel Phillips MA - 06/26/2022 9:08 AM CDT Pt requesting lab orders * Cristela Pereira - 06/26/2022 9:01 AM CDT Patient needs to have labs drawn before appt tomorrow at [facility]. She is going there now to have fasting labs drawn. Please call with any questions [phone] documented in this encounter Plan of Treatment Upcoming Encounters Date Type Department Care Team (Late st Contact Info) Description 03/14/2024 11:45 AM CRYPTOLOGIC LINGUIST Office Visit [facility]-[address] [phone] Marvin Mckeon MD [address] [facility] [address] [place] [address] 03/20/2024 11:30 AM CRYPTOLOGIC LINGUIST Office Visit [facility] Family [facility] - [place] [address] [place] [phone] Abiodun Segura II, MD [address] [place] [address] documented as of this encounter Visit Diagnoses Not on filedocumented in this encounter Additional Health Concerns Assessment Noted Time PHQ-9 Depression Total Score: 0 03/08/19 22 9:30 AM CRYPTOLOGIC LINGUIST documented as of this encounter Care Teams Medical Microbiologist Relationship Specialty Start Date End Date Abiodun Segura II, MD [address] [place] [address] PCP - General FAMILY PRACTICE 03/09/21 [place] [address] [place] [address] PODIATRY/SURGERY 05/05/22 documented as of this encounter
--- OUTSIDE RECORDS SUMMARY | 2024-03-02 22:25 | XMS_ITS | Encounter Summary ---
Author Organization [facility] Address [address] [place] [address]. [place] [address] [place] [address] Care Team Providers Care Fire Engine Pump Operator Name Role Phone Colton SILVEIRA MD, Abiodun Rushing Primary Care Provider Reason for Visit * Reason Onset Date Comments Error 05/02/2022 Encounter Details Date Type Department Care Team (Late st Contact Info) Description 05/02/2022 Telephone [facility] Family Medicine [place] [address] [place] [address] Abiodun Segura II, MD [address] [place] [address] Error Social History Tobacco Use Types Packs/Day Years [...] Coronavirus/COVID-19? No / Unsure 04/04/2022 11:24 AM BILLET CUTTER documented as of this encounter Functional Status [...] encounter Progress Notes * Renee Cuevas - 05/02/2022 10:00 AM CDT error documented in this encounter Plan of Treatment Upcoming Encounters Date Type Department Care Team (Late st Contact Info) Description 03/14/2024 11:45 AM BILLET CUTTER Office Visit [facility] [address] Marvin Mckeon MD [facility] [address] [place] [address] 03/20/2024 11:30 AM BILLET CUTTER Office Visit [facility] Family Medicine - [place] [address] [place] [phone] Abiodun Segura II, MD [address] [place] [address] documented as of this encounter Visit Diagnoses Not on filedocumented in this encounter Additional Health Concerns Assessment Noted Time PHQ-9 Depression Total Score: 0 03/08/19 9:30 AM BILLET CUTTER documented as of this encounter Care Teams Fire Engine Pump Operator Relationship Specialty Start Date End Date Abiodun Segura II, MD [address] [place] [address] PCP - General FAMILY PRACTICE 03/09/21 documented as of this encounter
--- OUTSIDE RECORDS SUMMARY | 2024-03-02 22:25 | XMS_ITS | Encounter Summary ---
Author Organization [facility] Address [address] [place] [address]. [place] [address] [place] [address] Care Team Providers Care Highway Painter Name Role Phone Colton SILVEIRA MD, Abiodun Rushing Primary Care Provider Victoriano Langston MD Unavailable [phone] Encounter Details Date Type Department Care Team (Latest Contact Info) Description 06/27/2022 Travel Social History Tobacco Use Types Packs/Day [...] PM CDT documented as of this encounter Functional [...] st Contact Info) Description 03/14/2024 11:45 AM WORK ADJUSTMENT INSTRUCTOR Office Visit [facility] [phone] Marvin Mckeon MD [facility] [address] [place] [address] 03/20/2024 11:30 AM WORK ADJUSTMENT INSTRUCTOR Office Visit [facility] Family Medicine - [address] [phone] Abiodun Segura II, MD [address] [place] [id number] documented as of this encounter Visit Diagnoses Not on filedocumented in this encounter Additional Health Concerns Assessment Noted Time PHQ-9 Depression Total Score: 0 03/08/19 22 9:30 AM WORK ADJUSTMENT INSTRUCTOR documented as of this encounter Care Teams Highway Painter Relationship Specialty Start Date End Date Abiodun Segura II, MD [address] [place] [address] PCP - General FAMILY PRACTICE 03/09/21 [place] [address] [place] [address] PODIATRY/SURGERY 05/05/22 documented as of this encounter
--- OUTSIDE RECORDS SUMMARY | 2024-03-02 22:25 | XMS_ITS | Encounter Summary ---
Author Organization [facility] Address [address] [place] [address]. [place], [place] [address] [place] [id number] Care Team Providers Care Under Trimmer Name Role Phone Colton SILVEIRA MD, Abiodun Rushing Primary Care Provider Encounter Details Date Type Department Care Team (Latest Contact Info) Description 03/15/2022 Travel Social History Tobacco Use Types Packs/Day [...] Coronavirus/COVID-19? No / Unsure 03/15/2022 9:40 AM BOBCAT OPERATOR documented as of this encounter Functional [...] st Contact Info) Description 03/14/2024 11:45 AM BOBCAT OPERATOR Office Visit [facility] [phone] Marvin Mckeon MD [facility] [address] [place] [phone] 03/20/2024 11:30 AM BOBCAT OPERATOR Office Visit [facility] Family Medicine - [address] [phone] Abiodun Segura II, MD [address] [place] [phone] documented as of this encounter Visit Diagnoses Not on filedocumented in this encounter Additional Health Concerns Assessment Noted Time PHQ-9 Depression Total Score: 0 03/08/19 22 9:30 AM BOBCAT OPERATOR documented as of this encounter Care Teams Under Trimmer Relationship Specialty Start Date End Date Abiodun Segura II, MD [address] [place] [phone] PCP - General FAMILY PRACTICE 03/09/21 documented as of this encounter
--- OUTSIDE RECORDS SUMMARY | 2024-03-02 22:25 | XMS_ITS | Encounter Summary ---
Author Organization [facility] Address [address] [place] [address]. [place] [address] [place] [address] Care Team Providers Care Us Administrative Law Judge Name Role Phone Colton SILVEIRA MD, Abiodun Rushing Primary Care Provider Victoriano Langston MD Unavailable Reason for Visit * Reason Comments Medicare Wellness Patient presents tosebas wynn for her Medicare annual wellness visit. Encounter Details Date Type Department Care Team (Late st Contact Info) Description 05/05/2022 10:30 AM CDT Office Visit [facility] Family Medicine - [address] [phone] Abiodun Segura II, MD [address] [place] [id number] Medicare Wellness (Patient presents today for her Medicare annual wellness visit.) Social History Tobacco Use Types Packs/Day Years [...] Sign Reading Time Taken Comments Blood Pressure 124/84 05/05/2022 10:46 AM CDT Pulse 92 05/05/2022 10:46 AM CDT Temperature 36.9 ??C (98.5 ??F) 05/05/2022 1 0:46 AM CDT Respiratory Rate 16 05/05/2022 10:4 6 AM CDT Oxygen Saturation 100% 05/05/2022 10: 46 AM CDT Inhaled Oxygen Concentration - - Weight 84.3 kg (185 lb 12.8 oz) 023 10:46 AM CDT Height 167.6 cm (5' 6 ) 05/05/2022 10:4 6 AM CDT Body Mass Index 29.99 05/05/2022 10:46 AM CDT documented in this [...] Qureshi RN Active documented in this encounter Patient Instructions * Patient Instructions* Renee Santos RN - 05/05/2022 10:30 AM CDT Images from the original note were not included. PERSONALIZED PREVENTION PLAN FOR Lena Mcneal These are your preventive care screenings with due dates. Health Maintenance Topic Date Due ??? COVID-19 Vaccine (1) Never done ??? Pneumococcal Vaccine: Pediatrics (0 to 5 Years) and At-Risk Patients (6 to 64 Years) (1 - PCV) Never done ??? DTaP, Tdap and Td Vaccines (1 - Tdap) Never done ??? Zoster Vaccines (1 of 2) Never done ??? Annual Physical 06/08/2022 (Originally 1973) ??? Hepatitis C 06/08/2022 (Originally 1989) ??? Influenza Adult (1) 04/03/2023 (Originally 11/19/2021) ??? Kidney Health Evaluation 05/10/2022 ??? Diabetes: Retinopathy Eye Exam 08/24/2022 ??? Hemoglobin A1C 10/03/2022 ??? Lipid Panel 04/05/2023 ??? Mammogram Screening 07/03/2023 ??? Colorectal Cancer Screening Colonoscopy (10 Years) 11/18/2030 ??? Meningococcal Vaccine Aged Out Recommended Covered Preventative Services Your PCP and clinical team will review the list below of recommended Medicare Part B Covered Preventative Services and follow up with you on future scheduling of any additional services CARDIOVASCULAR DISEASE (behavioral therapy) Medicare will cover one visit per year with a primary care doctor [facility] to help lower your risk for cardiovascular disease. During this visit, the doctor may discuss aspirin use (if appropriate), check your blood pressure, and give you tips to make sure you eat well. You pay nothing if the doctor or other qualified health care provider accepts assignmen t. FLU SHOTS Medicare covers one flu shot per flu season. You pay nothing for the flu shot if the doctor or other qualified health care provider accepts assignment for giving the shot. PNEUMOCOCCAL SHOTS Medicare covers pneumococcal shots to help prevent pneumococcal infections (like certain types of pneumonia). The two shots protect against different strains of the bacteria. Medicare covers the first shot at any time, and also covers a different second shot if it???s given one year (or later) after the first shot. Talk with your doctor or other health care provider to see if you need one or bothof the pneumococcal shots. You pay nothing for these shots if the doctor or other qualified health care provider accepts assignment for giving the shots Based on your responses to the Health Risk Assessment and appointment today, your provider recommends the following: ADVANCE DIRECTIVES The Basics Written by the doctors and editors at [facility] What are advance directives???--??Advance directives are legal documents that allow you to spell out ahead of time what of types medical care you would want if you ever became unable to speak for yourself. These documents can help ensure that you get the care you want even if you have an unexpectedserious illness or accident. The documents can also make things easier for the people who will need to make decisions for you if you ever become unable to make them for yourself. Are there different kinds of advance directives???--??Yes. The most useful kinds of advance directives are: ?? Health care proxy (also called the durable power of regulatory attorney for health care) - The health care proxy document allows you to choose someone to make medical decisions for you if you become unable to speak for yourself. The benefit of having this document is that it makes your choice of a decision-maker clear to your doctors and family members. When you choose a health care proxy, it is important to talk to the person you choose about the things that you do or don't want. That way your decision-maker knows what to do later on if he or she ever has to speak for you. ?? Living will - A living will is the document that tells health care providers what type of care you want if you become unable to speak for yourself. For instance, a living will allows you to recordin writing whether you would want a feeding tube put in if you had a serious illness or accident. ?? Do not resuscitate/do not intubate order (also called a DNR/DNI) - If you decide you do not wantyour heart restarted if it stops and you do not want a breathing tube put in if you stop breathing,you can ask for a DNR/DNI. This is a form that must be signed by a doctor. It tells all your healthcare providers that you have decided you do not want these treatments. Advance directives work best when they are part of a team effort that includes not only the person making the decisions, but also doctors, emergency health workers, and places like hospitals and nursing homes. The Physician Orders for Life Sustaining Treatment (POLST) is a form for people who already have a serious illness or are very weak and likely to need medical help. The POLST form spells out exactly what care should be given, and not given, based on your choices and wishes. It is signed by your doctor, and you can keep a copy at home to be used in the event of an emergency. A copy is also kept onfile at any hospital or other place where you might get medical care. Not every state has a POLST program. To find out if your state has one, you can go online to www.polst.org. How do I choose a health care proxy???--??Choose someone who: ?? You know and trust ?? Can separate his or her own wishes from your own ?? You know would carry out your wishes if that became necessary ?? Could be easily reached if he or she was needed ?? Could handle it if other family members or loved ones wanted you to get treated differently thanyou would want Some people choose a second person as an alternate proxy, in case their first choice cannot be reached at the time decisions need to be made. Who should have an advance directive???--??Advance directives are a good idea for anyone, but they are especially important if: ?? You are older than 65. ?? You have a serious life-threatening illness, such as advanced cancer, or end- stage heart or liver failure. ?? The person whom you would like as your health care proxy (decision-maker) is not a family memberor legally to you. If that is the case the person you would choose might not be allowed to make decisions for you. Unless there is a health care proxy, the law usually states that a person's closest family member has the right to make decisions for him or her. What kinds of decisions will I need to make???--??Your advance directives can have as much or as little detail as you want. But many people who have advance directives record their wishes about the following treatments: ?? Breathing tubes - If you stop breathing or are having a very hard time breathing, you can get attached to a machine that will help you breathe. For that to happen, you will have to be intubated. That means that a tube will be put down your throat and into your lungs. Then the tube will be connected to a breathing machine. When the tube is in place, you will not be able to talk, at least at first. Plus, you will probably be sedated, meaning that you are on medicines that make you sleep. Sometimes a breathing machine is needed only for a short time. For instance, some people need the breathing machine just while they recover from a lung infection. When deciding about a breathing tube, consider whether you would want it at all, want it only for a short time, or want it no matter what. Also, keep in mind that any time a breathing machine is used, it is hard to know for sure if and when it will be able to be disconnected. ?? Cardiopulmonary resuscitation (CPR) - If your heart stops beating suddenly, doctors might be able to restart it by pumping on your chest, putting in a breathing tube and pushing air into your lungs, giving you an electric shock (called defibrillation ), and/or giving you special medicines. Somepeople recover completely after having their heart restarted. Others have permanent brain damage from a lack of blood flow to the brain; this is most likely in people who have an advanced, serious illness. ?? Feeding tubes - If you become unable to eat, you can have a tube put into your stomach or intestines that can deliver nutrients. A feeding tube can keep a person's body going while he or she healsand gets strong. But it can also keep a person alive for a long time even if there is no chance theperson will recover. Can I change my mind???--??Yes. You can change your mind at any time. If you sign an advance directive and you decide you want a different kind of treatment or you no longer want the health care proxy you chose, all you have to do is tell your doctor or nurse about your new decision. If you want toname a new health care proxy or want to record new wishes, you can draw up new documents. How can I draw up an advance directive???--??The following table lists resources that can help you learn more about making your own advance directives (table 1). All topics are updated as new evidence becomes available and our peer review process is complete. This topic retrieved from [employer] on: Feb 26, 2018. Topic 20068 Version 11.0 table 1: Resources that can help you make advance directives ?? Address Phone number Website [address] Toll-free: [phone]) [facility] [ ] http://assets.[facility].org/external_sites/ caregiving/multimedia/EG_AdvanceDirectives.html Aging with Dignity (Five Wishes form) [address] [place] [address] Toll-free: [phone]) [phone] [ ] www.agingwithdignity.org CaringInfo ?? Toll-free: www.caringinfo.org [facility] [employer]ified Person [employer] [address] [place] [address] [email or web address] CONSTIPATION Guidelines to help you prevent constipation: 1. Drinking 6-8 glasses (8 oz) of fluid daily can be helpful. Dehydration is a common contributing factor in many cases of constipation. 2. Fiber in the diet is also important. This includes whole grain foods (like oatmeal or bran cereal) as well as fruits and vegetables. There are also fiber products like Metamucil and Benefiber which you can take. 3. Daily exercise or physical activity also helps with regular bowel movements. It has been said that if your body is moving and active, then your bowels will, too. 4. Prunes or prune juice are natural alternatives to laxatives for the treatment of constipation. Try a few prunes or a small glass of prune juice in the morning to stay regular. HEALTHY DIET INFORMATION With a heart healthy food plan, you will learn to make better food choices. This diet may help you lower your blood cholesterol level, manage your blood pressure, and lower your risk for heart problems. Smaller portions may also be helpful. Sodium is a type of mineral found in many foods. It helps keep the balance of fluids in your body. Too much sodium can raise your blood pressure. It can also make you take on extra water. This is called edema. Pay careful attention to how much salt or sodium is in your food. You may need to avoid salt or eat foods with less sodium. Cholesterol is a fat-like, waxy substance in your blood. It is normal to have some cholesterol in your blood because your body makes it. You also get extra cholesterol from all animal products. Theseare foods like meats, eggs, and dairy products. Too much cholesterol can block or damage your bloodvessels. This can lead to a heart attack or stroke. Fats in your food have calories which give energy. Not all fats are bad. Some fats are healthy, like the fat found in fish, nuts, and olive oil. These are called unsaturated fats. They help manage body functions and lower cholesterol levels. Learn about the best fats to use in your diet and where to use them. Eating too much fat may make you more likely to weigh more than is healthy. This raises your risk of many heart problems. Fiber is found in plants. Meat and dairy products do not have fiber in them. Fiber can help you lower your unhealthy cholesterol level. You may need more water as you eat more fiber so you do not gethard stools. What lifestyle changes are needed? Eat a healthy diet and workout often. Try to use as many calories as you take in each day. What changes to diet are needed? ?? Eat oily fish at least 2 times a week. These are fish like tuna, salmon, and mackerel. ?? Limit sodium to no more than 2,300 mg of sodium per day. This is about 1 teaspoon (5 grams) of table salt. Use little or no salt when making food. Try other spices or seasoning instead. ?? Limit how much cholesterol you eat to less than 300 mg per day. You can do this by having lean meats. Also eat lots of fruits, vegetables, and fat-free and low-fat dairy products. ?? Limit how much trans fats you eat. Trans fats are found in many processed foods like stick margarine, shortening, and some fried foods. Also, lower how much hydrogenated fats you eat. They are used to make pastries, biscuits, cookies, crackers, chips, and many snack foods. ?? Have no more than 1 drink per day of beer, wine, and mixed drinks (alcohol). Who should use this diet? A heart healthy diet is good for everyone. What foods are good to eat? ?? Grains: Try to eat 6 to 8 servings of whole grain, high fiber foods each day. These are whole grain bread, cereals, brown rice, or pasta. ?? Fruits and vegetables: Eat 4 to 5 servings each day. Try to pick many kinds and colors. Try to eat more that are fresh or frozen. Look for low sodium or salt-free if you choose canned. Rinse canned items before cooking or eating. Dried peas, beans, and lentils are also good. ?? Dairy: Choose low fat (1%) or fat-free milk. Eat nonfat or low-fat products. ?? Protein: Try to eat more low fat or lean meats like chicken and turkey. Eat less red meat and eat more fish, eggs, egg whites, and beans instead. ?? Fats: Use good fats found in fish, nuts, and avocados. Try using olive oil, canola oil, and low-sodium and low-fat salad dressing and mayonnaise. Use corn, safflower, sunflower, and soybean oils. ?? Condiments: Use low-sodium or salt-free broths, soups, soy sauce, and condiments. Pepper, herbs,spices, vinegar, lemon or [place] juices are great for seasoning. Sugar, cocoa powder, honey, syrup, and jams may be eaten in small amounts. ?? Sweets: Low-fat, trans fat-free cookies, cakes, and pies; tami crackers; animal crackers; low-fat fig bars; and olu snaps. What foods should be limited or avoided? ?? Grains: Salted breads, rolls, crackers, quick breads, self-rising flours, biscuit mixes, regularbread crumbs, instant hot cereals, commercially-prepared rice, pasta, stuffing mixes ?? Fruits and vegetables: Commercially-prepared potatoes and vegetable mixes, regular canned vegetables and juices, vegetables frozen with sauce or pickled vegetables, processed fruits with salt or sodium ?? Dairy: Whole milk, malted milk, chocolate milk, buttermilk ?? Protein: Smoked, cured, salted, or canned meat, fish, or poultry such as guardado and sausages ?? Fats: Cut back on solid fats like butter, lard, and margarine. ?? Condiments and snacks: Salted and canned peas, beans, and olives; salted snack foods; fried foods; soda, juices, or other sweetened drinks; commercially- softened water. Miso, salsa, ketchup, barbeque sauce, Worcestershire sauce, soy sauce, and teriyaki sauce are also high in salt. ?? Sweets: High-fat baked goods such as muffins, donuts, pastries, commercial baked goods Helpful tips ?? When you go to a grocery store, have a list or a meal plan. Do not shop when you are hungry to avoid cravings for foods. ?? You need to know about the sodium and fat content of the food you eat. Read food labels with care. They will show you how much of each is in a serving. This amount is given as a percentage of the total amount you need each day. Reading the labels will help you make healthy food choices. ?? Avoid fast foods. ?? Watch your portions when eating out. Split an order or bring home half for another meal. ?? Talk to a dietitian for help. Where can I learn more? [place] [employer] https://familydoctor.org/yvaz-yzt-nnirdqvh-vmb-m-zvqfkgf-heart/ [place] [employer] Association http://www.heart.org/HEARTORG/HealthyLiving/HealthyEating/Nutrition/Niyz-azn-Kea estyle-Recommendations_[facility]_305[address]_Article.jsp#.Wxf_Q6oUmUk EXERCISE As an older adult, regular physical activity is one of the most important things you can do for your health. It can prevent many of the health problems that seem to come with age. It also helps your muscles grow stronger so you can keep doing your day-to-day activities without becoming dependent onothers. Not doing any physical activity can be bad for you, no matter your age or health condition. Keep inmind, some physical activity is better than none at all. Your health benefits will also increase with the more physical activity that you do. If you're 65 years of age or older, are generally fit, and have no limiting health conditions you can follow these guidelines. For Important Health Benefits Older Adults Need at Least: 2 hours and 30 minutes ( 150 minutes) of moderate-intensity aerobic activity (i.e., brisk walking) every week and muscle-strengthening activities on 2 or more days a week that work all major muscle groups (legs, hips, back, abdomen, chest, shoulders, and arms). -or- 1 hour and 15 minutes (75 minutes) of vigorous-intensity aerobic activity (i.e., jogging or running) every week and muscle-strengthening activities on 2 or more days a week that work all major musclegroups (legs, hips, back, abdomen, chest, shoulders, and arms). -or- An equivalent mix of moderate- and vigorous-intensity aerobic activity and muscle-strengthening activities on 2 or more days a week that work all major muscle groups (legs, hips, back, abdomen, chest, shoulders, and arms). For Even Greater Health Benefits Older Adults Should Increase Their Activity to: 5 hours (300 minutes) each week of moderate-intensity aerobic activity and muscle-strengthening activities on 2 or more days a week that work all major muscle groups (legs, hips, back, abdomen, chest, shoulders, and arms). -or- 2 hours and 30 minutes (150 minutes) each week of vigorous-intensity aerobic activity and muscle-strengthening activities on 2 or more days a week that work all major muscle groups (legs, hips, back,abdomen, chest, shoulders, and arms). -or- An equivalent mix of moderate- and vigorous-intensity aerobic activity and muscle-strengthening activities on 2 or more days a week that work all major muscle groups (legs, hips, back, abdomen, chest, shoulders, and arms Aerobic activity - what counts? Aerobic activity or cardio gets you breathing harder and your heart beating faster. From pushing a emergency doctor, to taking a dance class, to biking to the store - all types of activities count. As long as you're doing them at a moderate or vigorous intensity for at least 10 minutes at a time. Even something as simple as walking is a great way to get the aerobic activity you need, as long as it's at a moderately intense pace. Intensity is how hard your body is working during aerobic activity. How do you know if you're doing moderate or vigorous aerobic activity? On a 10-point scale, where sitting is 0 and working as hard as you can is 10, moderate-intensity aerobic activity is a 5 or 6. It will make you breathe harder and your heart beat faster. You'll also notice that you'll be able to talk, but not sing the words to your favorite song. Vigorous-intensity activity is a 7 or 8 on this scale. Your heart rate will increase quite a bit and you'll be breathing hard enough so that you won't be able to say more than a few words without stopping to catch your breath. You can do moderate- or vigorous-intensity aerobic activity, or a mix of the two each week. Intensity is how hard your body is working during aerobic activity. A rule of thumb is that 1 minute of vigorous-intensity activity is about the same as 2 minutes of moderate-intensity activity. Everyone's fitness level is different. This means that walking may feel like a moderately intense activity to you, but for others, it may feel vigorous. It all depends on you - the shape you're in, what you feel comfortable doing, and your health condition. What's important is that you do physical activities that are right for you and your abilities. Muscle-strengthening activities - what counts? Besides aerobic activity, you need to do things to make your muscles stronger at least 2 days a week. These types of activities will help keep you from losing muscle as you get older. To gain health benefits, muscle-strengthening activities need to be done to the point where it's hard for you to do another repetition without help. A repetition is one complete movement of an activity, like lifting a weight or doing one sit-up. Try to do 8--12 repetitions per activity that count as 1 set. Try to do at least 1 set of muscle-strengthening activities, but to gain even more benefits, do 2 or 3 sets. There are many ways you can strengthen your muscles, whether it's at home or the gym. The activities you choose should work all the major muscle groups of your body (legs, hips, back, chest, abdomen,shoulders, and arms). You may want to try: ???Lifting weights ???Working with resistance bands ???Doing exercises that use your body weight for resistance (push ups, sit ups) ???Heavy gardening (digging, shoveling) ???Yoga Reference: http://www.cdc.gov/physicalactivity/everyone/guidelines/olderadults.html FALL RISK Guidelines to help you prevent falls: There are several steps you can take to decrease fall risk at home. One suggestion is to remove tripping hazards like throw rugs, loose wires, clutter or other objects from the floor. Installing hand-rails for stairs and turning on night lights between the bedroom and bathroom at night are other helpful suggestions. If you have fallen in the bathroom, use of grab bars near the toilet and a shower stool or bench may help prevent a fall in this part of the home. Taking extra time when getting up from a sitting or lying position before starting to walk is especially helpful to those who have dizziness triggered by change in body position. There are also some steps that can be taken to reduce fall risk outdoors. Wearing well-fitting shoes with good traction is important when walking on either the pavement or the lawn. Avoid high heels or shoes with very thick soles, especially if you have peripheral neuropathy. If you have problems with balance or leg pain, using a cane or walker can also be helpful. Finally, be aware of possible tripping hazards outdoors including uneven pavement and slipping hazards like wet ground or pavement. ACTIVITIES OF DAILY LIVING Your Health Risk Assessment indicates you have difficulties with activities of daily living such aseating, getting dressed, grooming, bathing, walking, or using the toilet. We will address this issue in more detail at your follow up appointment. INSTRUMENTAL ACTIVITIES OF DAILY LIVING Your Health Risk Assessment indicates you have difficulties with instrumental activities of daily living which include laundry, housekeeping, banking, shopping, using the telephone, food preparation, transportation, ortaking your own medications. We will address this issue in more detail at your follow up appointment. Local resource that provide help with meals and other assistance: [facility] [place] of [employer] [phone] [employer] [facility] PAIN During your health risk assessment you complained of pain. Pain can be an unpleasant feeling that happens in any part of the body. It can be mild or very bad. You may feel this pain always or it may just come and go. It may be dull, sharp, or throbbing. Pain can last for a long time or a short time. Pain can cause upset stomach and throwing up. When you are in pain you may not feel hungry. You may feel nervous. Pain can be acute or chronic. Acute pain tells you there may be an injury and you need to take careof yourself. Chronic pain lasts for a long period of time. What are the causes? ?? Headache ?? Back problems ?? Arthritis ?? Muscle strain ?? Trauma, such as a blow to the body, fall, motor vehicle accident, or gunshot wound ?? Infection ?? Menstrual pain in women What are the main signs? Pain can be throbbing or shooting. Some people feel pain as dull and others as sharp. It may tingleor burn and shoot down an arm or leg. You may also notice that you are limited when moving a part of your body from pain. Sometimes, pain causes you to have muscle aches or spasms. Other people have headaches or are grouchy when in pain. Some people have loose stools when in pain. Some people have trouble sleeping when in pain. How does the doctor diagnose this health problem? Your doctor will ask you to talk about your pain. Tell the doctor: ?? How your pain feels. Is it dull, sharp, burning, stabbing, or cramping? ?? Where your pain is ?? What causes your pain ?? What makes your pain better or worse Your doctor may ask you to rate your pain. This means you would pick a number or picture that most closely describes your pain. The doctor may ask you to say what number your pain is between 0 and 10. Zero means you have no pain at all and 10 means you have the worst pain ever and you need to go [facility]. An exam will help your doctor find out where the pain is and what is causing it. Some simple blood tests may be done. This will help your doctor decide if any other tests are needed. How does the doctor treat this health problem? Mild drugs may be ordered to ease your pain. Sometimes, pain is a sign of some other problem in your body. In this case, drugs may not be ordered at all or only mild ones given. To treat mild to moderate pain: ?? Acetaminophen ?? Nonsteroidal anti-inflammatory drugs (NSAIDs) like aspirin or ibuprofen ?? NSAIDs in a cream form can be used on the skin where you feel the pain ?? Muscle relaxers may be used to loosen tight muscles To treat moderate to very bad pain: ?? Weak opioid drugs like codeine ?? Strong opioid drugs like morphine Ice, heat, rest, and elevating your painful body part may be used to ease pain and help with swelling from muscle pain. When Using Ice ?? Place an ice pack or a bag of frozen peas wrapped in a towel over the painful part. Never put ice right on the skin. Do not leave the ice on more than 10 to 15 minutes at a time. When Using Heat ?? Heat may be used later but not right away. Heat can make swelling worse. If your doctor tells you to use heat, put a heating pad on your painful part for no more than 20 minutes at a time. Never go to sleep with a heating pad on as this can cause correa. Your doctor may suggest other types of pain control to help you. Some of these are massage, acupuncture, manager progressive care, and relaxation. What drugs may be needed? The doctor may order drugs to: ?? Help with pain and swelling ?? Relax tight muscles Take your drugs as ordered by your doctor. Some of these drugs can be habit forming and may cause side effects. What can be done to prevent this health problem? ?? The best thing you can do is talk to your doctor about any pain you have. Your doctor can help you make a plan to lower your pain. ?? Some causes of pain get better by staying active and working out. Your doctor may send you to a physical therapist to help you work on strength exercises and stretching. HEALTH STATUS Your Health Risk Assessment indicates you are feel you are not in good health. A healthy lifestyle helps keep the body fit and the mind alert. It helps protect you from disease, helps you fight disease, and helps prevent chronic disease (disease that doesn't go away) from getting worse. This is important as you get older and begin to notice twinges in muscles and joints and a decline in the strength and stamina you once took for granted. A healthy lifestyle includes good healthcare, good nutrition, weight control, recreation, and regular exercise. Avoid harmful substances and do what you can to keep safe. Another part of a healthy lifestyle is stay mentally active and socially involved. Good healthcare ?? Have a physical checkup every year. ?? If you have new symptoms, let us know right away. Don't wait until the next checkup. ?? Take medicines exactly as prescribed and keep your medicines in a safe place. Tell us if your medicine causes problems. Healthy diet and weight control ?? Eat 3 or 4 small, nutritious, low-fat, high-fiber meals a day. Include a variety of fruits, vegetables, and whole-grain foods. ?? Make sure you get enough calcium in your diet. Calcium, vitamin D, and exercise help prevent osteoporosis (bone thinning). ?? If you live alone, try eating with others when you can. That way you get a good meal and have company while you eat it. ?? Try to keep a healthy weight. If you eat more calories than your body uses for energy, it will be stored as fat and you ?? will gain weight. Recreation Recreation is not limited to sports and team events. It includes any activity that provides relaxation, interest, enjoyment, and exercise. Recreation provides an outlet for physical, mental, and social energy. It can give a sense of worth and achievement. It can help you stay healthy. Mental exercise and social involvement Mental and emotional health is as important as physical health. Keep in touch with friends and family. Stay as active as possible. Continue to learn and challenge yourself. Things you can do to stay mentally active are: ?? Learn something new, like a foreign language or musical instrument. ?? Play SCRABBLE or do crossword puzzles. If you cannot find people to play these games with you athome, you can play them with others on your computer through the Internet. ?? Join a games club--anything from card games to chess or checkers or lawn bowling. ?? Start a new hobby. ?? Go back to school. ?? Volunteer. ?? Read. ?? Keep up with world events. documented in this encounter Progress Notes * Renee Santos RN - 05/05/2022 10:30 AM CDT Medicare Annual Wellness Visit Chief Complaint: Lena is an 52-year-old female here for an annual wellness visit. Patient Care Team: Abiodun Segura II, MD as PCP - General (FAMILY PRACTICE) Victoriano Langston MD (PODIATRY/SURGERY) HEALTH RISK ASSESSMENT 05/05/2022 10:56 AM Medicare Wellness During the past 4 weeks, how much have you been bothered by emotional problems such as feeling anxious, depressed, irritable, sad or downhearted and blue? Not at all During the past 4 weeks, has your physical and emotional health limited your social activities withfamily friends, neighbors or groups? Not at all During the past 4 weeks, how much bodily pain have you generally had? Moderate pain During the past 4 weeks, was someone able to help you if you needed and wanted help? Yes, as much as I wanted During the past 4 weeks, what was the hardest physical activity you could do for atleast 2 minutes?Very light Can you get places out of walking distance without help? Yes Can you shop for groceries or clothes without help? No Can you prepare your own meals? No Can you do your own housework without help? No Can you handle your own money without help? Yes Do you need help eating, bathing, dressing, or getting around your home? Yes During the past 4 weeks, how would you rate your general health? Fair How have things been going for you during the past 4 weeks? Pretty well Are you having difficulties driving your car? Sometimes Do you always fasten your seatbeat when you are in a car? Yes Fall or dizzy when standing up Never Sexual problems Never Trouble eating well Never Teeth or dentures Never Problems using the telephone Never Tired or fatigued Never Do you currently smoke? No During the past 4 weeks, how many drinks of wine, beer or other alcoholic bevearges did you have? No alcohol at all Do you exercise for about 20 minutes 3 or more days a week? No, I usually do not exercise this much How often do you have trouble taking medicines the way you have been told to take them? I always take them as prescribed How confident are you that you can control and manage most of your health problems? Somewhat confident In the past 6 months, have you experienced leaking of urine? No Does the patient live alone? No Does the patient have throw rugs in their home? No Does the patient's home have poor lighting? No Does the patient have grab bars in their bathroom? No Does the patient have handrails on stairs and steps in their home? Yes Does the patient's home have functioning smoke alarms? Yes Patient lives with her and her daughter. Her daughter is a paid caregiver 4 hours/day, 7 days/week. She provides assistance as needed. Patient manages her medications by taking them from the bottles each day. She denies any problems with the system. Patient bathes in the shower that is located inside a tub. She requires assistance from her daughter to enter and exit. Patient lives in an apartment that she rents. Nurse suggested she contact her landlord to see if he would be willing to put grab bars in her bathroom. Patient verbalized understanding. Patient states that she has difficulties driving if it is amelia outside, if it is raining, and at nighttime. Therefore she does not drive at these times. FALL RISK MINI-COG 05/05/2022 11:07 AM Mini-Cog 3 word recall 3 Clock Draw 2 Total Score = Word Recall Score + Clock Draw score 5 PHQ2/PHQ9 09/17/2020 11:35 AM 10/08/2020 10:02 AM 03/08/2021 9:30 AM 06/08/2021 9:25 AM 03/15/2022 9:53 AM 05/05/2022 11:05 AM PHQ2/PHQ 9 DEPRESSION SCREEN QUESTIONAIRE Little interest or pleasure in doing things Not at all Not at all Feeling down, depressed, or hopeless Not at all Not at all Patient Health Questionnaire-2 Score 0 0 How difficult have these problems made it for you to do your work, take care of things at home, or get along with other people? Not difficult at all LITTLE INTEREST OR PLEASURE IN DOING THINGS 0-Not at All 0-Not at All 0-Not at All 0-Not at All FEELING DOWN, DEPRESSSED,OR HOPELESS 0-Not at All 0-Not at All 0-Not at All 0- Not at All PHQ2 DEPRESSION TOTAL SCORE 0 0 0 0 DEPRESSION SCREENING TOTAL SCORE 0 0 0 IF YOU CHECKED OFF ANY PROBLEMS Not difficult at all SUBSTANCE USE SCREENING 05/05/2022 11:06 AM Audit C+2 Screening Q1: How often do you have a drink containing alcohol? Never Q2: How many drinks containing alcohol do you have on a typical day when you are drinking? None Q3: How often do you have six or more drinks on one occasion? Never How often have you used marijuana? 0 How often have you used an illegal drug or a prescription medication for non- medical reasons? For example, used for the feeling or experience it caused. 0 Audit-C Score 0 Substance Use Score 0 Alcohol and Substance Total Score 0 The 10-year ASCVD risk score (Armen PINTO, et al., 2019) is: 10.2% Values used to calculate the score: Age: 52 years Sex: Female Is Non- : Yes Diabetic: Yes Tobacco smoker: No Systolic Blood Pressure: 124 mmHg Is BP treated: Yes HDL Cholesterol: 41 MG/DL Total Cholesterol: 182 MG/DL HISTORY Past Medical History: Diagnosis Date ??? Arthritis [...] Social History Socioeconomic History ??? Marital status: Social History Narrative lives with and C. Social History Tobacco Use ??? Smoking status: Never ??? Smokeless tobacco: Never Substance Use Topics ??? Alcohol use: Yes Comment: few times per year Current Outpatient Medications Medication Sig Dispense Refill [...] SYRINGE TWICE DAILY 100 each 0 ??? cyclobenzaprine (FLEXERIL) 10 MG tablet Take 1 tablet (10 mg total) by mouth 3 (three) times daily as needed. 90 tablet 5 ??? dulaglutide (TRULICITY) 1.5 MG/0.5ML injection Inject 3 mg into the skin once a week. 4 mL 5 ??? dulaglutide (TRULICITY) 1.5 MG/0.5ML injection Inject 1.5 mg into the skin once a week. 4 pen 1 ??? HUMALOG MIX 75/25 (75-25) 100 UNIT/ML Suspension INJECT 60 UNITS SUBCUTANEOUSLY EVERY MORNING. THEN INJECT 55 UNITS SUBCUTANEOUSLY EVERY EVENING. 40 mL 0 ??? HYDROcodone-acetaminophen (NORCO) 5-325 [...] 3 Day Supply 12 tablet 0 ??? Dulaglutide (TRULICITY) 3 MG/0.5ML Solution Pen-injector Inject 3 mg into the skin weekly. Fridays (Patient not taking: Reported on 05/05/2022) 6 mL 3 No current facility-administered medications for this visit. EXAM Filed Vitals: 05/05/22 1046 BP: 124/84 Pulse: 92 Resp: 16 Temp: 98.5 ??F (36.9 ??C) TempSrc: Temporal SpO2: 100% Weight: 84.3 kg (185 lb 12.8 oz) Height: 5' 6 (1.676 m) PainSc: 5 Moderate Pain (0-10 Scale) Patient denies any problems with hearing. ASSESSMENT AND PLAN The patient's current medical problems were reviewed. The following health maintenance schedule was reviewed with the patient and provided in printed form in the after visit summary: Health Maintenance Topic Date Due ??? COVID-19 Vaccine (1) Never done ??? Pneumococcal Vaccine: Pediatrics (0 to 5 Years) and At-Risk Patients (6 to 64 Years) (1 - PCV) Never done ??? DTaP, Tdap and Td Vaccines (1 - Tdap) Never done ??? Zoster Vaccines (1 of 2) Never done ??? Annual Physical 06/08/2022 (Originally 1973) ??? Hepatitis C 06/08/2022 (Originally 1989) ??? Influenza Adult (1) 04/03/2023 (Originally 11/19/2021) ??? Kidney Health Evaluation 05/10/2022 ??? Diabetes: Retinopathy Eye Exam 08/24/2022 ??? Hemoglobin A1C 10/03/2022 ??? Lipid Panel 04/05/2023 ??? Mammogram Screening 07/03/2023 ??? Colorectal Cancer Screening Colonoscopy (10 Years) 11/18/2030 ??? Meningococcal Vaccine Aged Out Patient is declining the shingles and Tdap vaccines. VIS provided. Patient is declining the COVID-vaccine. [facility] information sheet provided. The following list of Medicare Part B Covered Preventative Services and Identified Health Risks were discussed with the patient and will be reviewed with the patient???s PCP / care team for further follow up and scheduling. Cardiovascular disease (behavioral therapy) Flu Shots (Declined. VIS provided.) Pneumococcal shots (Declined. VIS provided.) Based on Lena's responses to the Health Risk Assessment, we disscussed the following risks. ADVANCE DIRECTIVE The patient was counseled and encouraged to create an Advance Directive. This will be further evaluated and addressed at a follow up visit. Lena does not have an advance directive. Lena was offered the Living Will and Short Form Power of Tool Dispatcher for Health Care [facility] and a sample of the 5 Wishes document but declined totake them. CONSTIPATION PROBLEM The patient was provided with written information and suggestions to address her indications of problems with constipation. DIET The patient was counseled and encouraged to consider modifying their diet and eating habits. She was provided with information on recommended healthy diet options. (Patient was instructed on current BMI of 29.99 and a healthy BMI range of 18.5-25.) EXERCISE She is at risk for lack of exercise and has been provided with information to increase physical activity for the benefit of her well-being. FALL RISK She is at risk for falling and has been provided with information to reduce the risk of falling at home as well as outside the home. LIMITATIONS IN ADL The patient reports that she has difficulty with activities of daily living. This issue will be further addressed during a follow up visit. In the meantime she was provided with a list of local organizations that provide support services. (Daughter is patient's paid caregiver 4 hours, 7 days/week. She assists patient with bathing and dressing.) LIMITATIONS IN IADL This issue will be further addressed at her upcoming appointment. In the meantime she was provided with a list of local organizations that provide support services. (Daughter assists patient with transportation when needed, shopping, meals, and housekeeping.) PAIN The patient was provided with information and appropriate referrals to address her pain problem. (Patient reports a history of Charcot foot that causes moderate pain in her left foot. She also reports intermittent generalized pain. Patient manages the foot pain with ordered meds.) UNSATISFACTORY HEALTH STATUS The patient was provided with suggestions to help her develop a healthy lifestyle. Specific health concerns will be addressed in detail at subsequent appointments. I reviewed all the information above with the patient and made screening recommendations based on my findings. RENEE SANTOS, DEANDRE I reviewed the patient's history, vitals from today, answers to the assessment and the services recommended by RENEE SANTOS RN. I agree with the findings and recommendations. Cosigned by Abiodun Segura II, MD at 05/05/2022 1:15 PM CDT documented in this encounter Plan of Treatment Upcoming Encounters Date Type Department Care Team (Late st Contact Info) Description 03/14/2024 11:45 AM MUSIC SPECIALIST Office Visit [facility] [phone] Marvin Mckeon MD [address] [facility] [address] [place] [id number] 03/20/2024 11:30 AM MUSIC SPECIALIST Office Visit [facility] Family [facility] - [place] [address] [place] [phone] Abiodun Segura II, MD [address] [place] [phone] documented as of this encounter Visit Diagnoses Diagnosis Routine general medical examination at a health care facility- Primary documented in this encounter Additional Health Concerns Assessment Noted Time PHQ-9 Depression Total Score: 0 03/08/19 9:30 AM MUSIC SPECIALIST documented as of this encounter Care Teams Us Administrative Law Judge Relationship Specialty Start Date End Date Abiodun Segura II, MD [address] [place] [id number] PCP - General FAMILY PRACTICE 03/09/21 [place] [address] [place] [address] PODIATRY/SURGERY 05/05/22 documented as of this encounter
--- OUTSIDE RECORDS SUMMARY | 2024-03-02 22:26 | XMS_ITS | Encounter Summary ---
Author Organization [facility] Address [address] [place] [address]. [place], [place] [id number] [place] [id number] Care Team Providers Care Health Insurance Specialist Name Role Phone Colton SILVEIRA MD, Abiodun Rushing Primary Care Provider Encounter Details Date Type Department Care Team (Latest Contact Info) Description 01/10/2022 Travel Social History Tobacco Use Types Packs/Day [...] suspected to have Coronavirus/COVID-19? No / Unsure 01/10/2022 11:53 AM PAINTER AND BODY MECHANIC APPRENTICE documented as of this encounter Functional Status [...] st Contact Info) Description 03/14/2024 11:45 AM PAINTER AND BODY MECHANIC APPRENTICE Office Visit [facility] [phone] Marvin Mckeon MD [facility] [address] [place] [phone] 03/20/2024 11:30 AM PAINTER AND BODY MECHANIC APPRENTICE Office Visit [facility] Family Medicine - [place] [address] [place] [phone] Abiodun Segura II, MD [address] [place] [phone] documented as of this encounter Visit Diagnoses Not on filedocumented in this encounter Additional Health Concerns Assessment Noted Time PHQ-9 Depression Total Score: 0 03/08/19 9:30 AM PAINTER AND BODY MECHANIC APPRENTICE documented as of this encounter Care Teams Health Insurance Specialist Relationship Specialty Start Date End Date Abiodun Segura II, MD [address] [place] [address] PCP - General FAMILY PRACTICE 03/09/21 documented as of this encounter
--- OUTSIDE RECORDS SUMMARY | 2024-03-02 22:26 | XMS_ITS | Encounter Summary ---
Author Organization [facility] Address [address] [place] [address]. [place] [address] [place] [address] Care Team Providers Care Parking Analyst Name Role Phone Colton SILVEIRA MD, Abiodun Rushing Primary Care Provider Encounter Details Date Type Department Care Team (Late st Contact Info) Description 01/17/2022 Orders Only [facility] [address] [place], [place] [phone] Abiodun Segura II, MD [address] [place] [phone] Social History Tobacco Use Types Packs/Day [...] Coronavirus/COVID-19? No / Unsure 01/10/2022 11:53 AM OPTIMIZATION CONSULTANT documented as of this encounter Functional Status [...] st Contact Info) Description 03/14/2024 11:45 AM OPTIMIZATION CONSULTANT Office Visit [facility] [phone] Marvin Mckeon MD [facility] [address] [place] [address] 03/20/2024 11:30 AM OPTIMIZATION CONSULTANT Office Visit [facility] [place] [address] [place] [phone] Abiodun Segura II, MD [address] [place] [phone] documented as of this encounter Results * CK (CPK) (01/17/2022 12:15 PM OPTIMIZATION CONSULTANT) CPK 88 26 - 192 U/L 01/17/2022 3:39 PM OPTIMIZATION CONSULTANT [facility] 01/17/2022 12:1 5 PM OPTIMIZATION CONSULTANT Abiodun Segura II, MD LABORATORY Final R [facility] Performing Organization Address [facility]/ZIP Co de Phone Number [facility] [address] [place] [address], [place] [phone] * C-REACTIVE PROTEIN (01/17/2022 12:15 PM OPTIMIZATION CONSULTANT) C-REACTIVE PROTEIN 0.40 <0.9 mg/dL 01/17/2022 3:39 PM OPTIMIZATION CONSULTANT [facility] 01/17/2022 12:1 5 PM OPTIMIZATION CONSULTANT Abiodun Segura II, MD LABORATORY Final R [facility] Performing Organization Address City/[facility]/ZIP Co de Phone Number [facility] [address] [place] [address], [place] [phone] * (ABNORMAL) COMPREHENSIVE METABOLIC PANEL (01/17/2022 12:15 PM OPTIMIZATION CONSULTANT) GLUCOSE 145(H) 70 - 99 MG/DL 01/17/2022 3:39 PM OPTIMIZATION CONSULTANT [facility] BUN 21(H) 7 - 18 MG/DL 01/17/2022 3:39 PM OPTIMIZATION CONSULTANT [facility] CREATININE S/P/B 0.84 0.55 - 1.02 MG/DL 01/17/2022 3:39 PM OPTIMIZATION CONSULTANT [facility] SODIUM S/P/B 142 136 - 145 MMOL/L 01/17/2022 3:39 PM [facility] POTASSIUM S/P/B 3.4(L) 3.5 - 5.1 MMOL/L 01/17/2022 3:39 PM [facility] CHLORIDE S/P/B 105 100 - 108 MMOL/L 01/17/2022 3:39 PM [facility] CO2 24.7 21 - 32 MMOL/L 01/17/2022 3:39 PM [facility] CALCIUM S/P/B 8.8 8.5 - 10.1 MG/DL 01/17/2022 3:39 PM [facility] BILIRUBIN TOTAL S/P/B 0.4 0.2 - 1.2 MG/DL 01/17/2022 3:39 PM [facility] TOTAL PROTEIN S/P/B 8.2 6.4 - 8.2 G/DL 01/17/2022 3:39 PM [facility] ALBUMIN S/P/B 3.1(L) 3.4 - 5.0 G/DL 01/17/2022 3:39 PM [facility] AST 24 15 - 37 U/L 01/17/2022 3:39 PM [facility] ALT 11(L) 14 - 55 U/L 01/17/2022 3:39 PM [facility] ALKALINE PHOSPHATASE S/P/B 150(H) 50 - 136 U/L 01/17/2022 3:39 PM [facility] ANION GAP 12.3 5 - 15 MMOL/L 01/17/2022 3:39 PM [facility] BUN CREATININE RATIO 25.0 6 - 26 01/17/2022 3:39 PM [facility] A/G RATIO 0.6(L) 1.0 - 2.0 RATIO 01/17/2022 3:39 PM [facility] GFR ESTIMATE 85(L) >90 ML/MIN/1.7 3 M2 01/17/2022 3:39 PM [facility] Comment: NOTE: eGFR is not calculated for patients <18 years of age. This is an estimated GFR calculation using the new CKD EPI creatinine equation without race and so does not require a correction factor for race. This estimated GFR should not be used for calculating drug doses. 01/17/2022 12:1 5 PM OPTIMIZATION CONSULTANT Abiodun Segura II, MD LABORATORY Final R esult [facility] [address] [place] [address], [place] [phone] * (ABNORMAL) CBC W/DIFF AUTOMATED (01/17/2022 12:15 PM OPTIMIZATION CONSULTANT) WBC 8.5 4.4 - 11.0 x10'3/uL 01/17/2022 3:25 PM [facility] RBC 3.60(L) 4.50 - 5.10 x10'6/uL 01/17/2022 3:25 PM [facility] HGB 10.9(L) 12.3 - 15.3 G/DL 01/17/2022 3:25 PM [facility] HCT 31.6(L) 35.9 - 44.6 % 01/17/2022 3:25 PM [facility] MCV 87.8 80.0 - 96.0 FL 01/17/2022 3:25 PM [facility] MCH 30.3 25.3 - 30.9 PG 01/17/2022 3:25 PM [facility] MCHC 34.5(H) 31.0 - 34.1 G/DL 01/17/2022 3:25 PM [facility] RDW 13.4 12.4 - 15.1 % 01/17/2022 3:25 PM [facility] PLT 253 151 - 353 x10'3/uL 01/17/2022 3:25 PM [facility] MPV 11.4 9.6 - 12.0 FL 01/17/2022 3:25 PM [facility] RBC MORPHOLOGY NORMAL 01/17/2022 3:25 PM [facility] PLT MORPH. NORMAL 01/17/2022 3:25 PM [facility] WBC MORPHOLOGY NORMAL 01/17/2022 3:25 PM [facility] LYMPHOCYTES % 31.9 15.8 - 45.0 % 01/17/2022 3:25 PM [facility] NEUTROPHILS % 58.6 42.1 - 71.9 % 01/17/2022 3:25 PM [facility] MONOCYTES % 5.5(L) 5.7 - 12.5 % 01/17/2022 3:25 PM [facility] EOSINOPHILS 3.1 0.0 - 5.6 % 01/17/2022 3:25 PM [facility] BASOPHILS 0.5 0.0 - 1.3 % 01/17/2022 3:25 PM [facility] ABS. NEUTROPHILS 5.00 1.40 - 6.00 x10'3/uL 01/17/2022 3:25 PM [facility] IMMATURE GRANS % 0.4 0.0 - 0.5 % 01/17/2022 3:25 PM [facility] ABS. 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
--- OUTSIDE RECORDS SUMMARY | 2024-03-02 22:26 | XMS_ITS | Encounter Summary ---
Author Organization [facility] Address [address] [place] [address]. [place], [place] [address] [place] [address] Care Team Providers Care Dialysis Biomed Technician Name Role Phone Colton SILVEIRA MD, Abiodun Rushing Primary Care Provider Reason for Visit * Auth/Cert Specialty Diagnoses / Procedures Referred By Lyla chaney Referred To Contact Home Health Services / [facility] Home Care [address] [place] [address] [place] [address] Phone: tel: fax: Referral ID Status Reason Start Date Expiration Date Visits Re quested Visits Authorized [id number] 1 1 Encounter Details Date Type Department Care Team (Late st Contact Info) Description 01/31/2022 11:30 AM DIAL BRUSHER Home Care Visit [facility] Home [address] [place] [address] [place] [address] Ysabel Adams RN SN HOME VISIT Social History Tobacco Use Types Packs/Day Years [...] Coronavirus/COVID-19? No / Unsure 01/10/2022 11:53 AM DIAL BRUSHER documented as of this encounter Last Filed Vital Signs Vital Sign Reading Time Taken Comments Blood Pressure 108/60 01/31/2022 11:19 AM DIAL BRUSHER Pulse 88 01/31/2022 11:19 AM DIAL BRUSHER Temperature 36.6 ??C (97.8 ??F) 01/31/2022 11:[address] Respiratory Rate 18 01/31/2022 11:19 AM DIAL BRUSHER Oxygen Saturation 100% 01/31/2022 11:19 AM DIAL BRUSHER Inhaled Oxygen Concentration - - Weight - - Height - - Body Mass Index - - documented in this encounter Functional Status * [...] st Contact Info) Description 03/14/2024 11:45 AM DIAL BRUSHER Office Visit [facility] [phone] Marvin Mckeon MD [address] [facility] [address] [place] [address] 03/20/2024 11:30 AM DIAL BRUSHER Office Visit [facility] Family Medicine - [place] [address] [place] [phone] Abiodun Segura II, MD [address] [place], [place] [id number] documented as of this encounter Visit Diagnoses Not on filedocumented in this encounter Additional Health Concerns Assessment Noted Time PHQ-9 Depression Total Score: 0 03/08/19 22 9:30 AM DIAL BRUSHER documented as of this encounter Home Health Visit - Care Plan Visit Details Visit Type -SN - Home Visit Discipline -Group Home Problems Problem Description Start Date Status Goals Interve ntions Pain/Physical Discomfort Disciplines: SN Patient is experiencing pain/physical discomfort. 12/27/2021 Active 1 goal linked to scheduled/documen rock intervention 2 goal interventions scheduled/documen rock in this visit Collaboration of Care Disciplines: SN Collaboration for safe care. 12/27/2021 Active 5 goals linked to scheduled/documen rock interventions 11 goal interventions scheduled/documen rock in this visit Fall Precautions Disciplines: SN Patient at risk for falls or has had recent fall occurrence(s). 12/27/2021 Active 1 goal linked to scheduled/documen rock intervention 3 goal interventions scheduled/documen rock in this visit Learning/Teachi ng Needs - IV Therapy Disciplines: SN Teaching and learning needs for performing home IV therapy. 12/27/2021 Active 1 goal linked to scheduled/documen rock intervention 6 goal interventions scheduled/documen rock in this visit Learning/Teachi ng Needs - Diabetes Disciplines: SN Learning and teaching needs associated with diagnosis. 12/27/2021 Active 1 goal linked to scheduled/documen rock intervention 3 goal interventions scheduled/documen rock in this visit Infection Prevention - Diabetes Disciplines: SN Risk for infection related to diabetes. 12/27/2021 Active 1 goal linked to scheduled/documen rock intervention 3 goal interventions scheduled/documen rock in this visit Wound Management Disciplines: SN Skin integrity deficit related to: surgical wound wound. Location/site: right foot 12/27/2021 Active 1 goal linked to scheduled/documen rock intervention 2 goal interventions scheduled/documen rock in this visit Goals Goal Associated Problem Outcome Goal Met? Visit Notes Patient's pain/physical discomfort will be reduced to the level of patient's stated goal. Description: - Patient's pain/physical discomfort will be reduced to the level of patient's stated goal by 01/31/22. - Patient's desired pain goal is 0. - Patient will verbalize understanding of the pain management plan by 01/31/22. Pain/Physical Discomfort Progressing No Hosptial Readmission Reduction Description: Hospital Readmission Reduction - Low Risk (0-6 risk factors). Patient's risk number is 6. Hospital Readmission will be avoided during the first 60-day episode of Homecare through frequency of assessment visits Collaboration of Care Progressing No Patient safety met through collaboration for safe care. Description: Clinicians will communicate patient care and safety needs during episode of care through 01/31/22. Collaboration of Care Progressing No Nutritional Status for Optimal Health Description: Patient will demonstrate adequate nutritional status as evidenced by stabilization of weight and intake of required nutrients for optimal health and functioning by 01/31/22. Collaboration of Care Progressing No Patient verbalizes understanding of medication regimen Description: Patient will verbalize understanding of medication regimen by 01/03/22. Collaboration of Care Progressing No Patient meets homebound requirements. Description: Patient meets requirements of homebound status as evidenced by Is there a functional impairment? Yes Functions of the metabolic and endocrine systems Functions of the skin and related structures Is there a structural impairment? Yes Structures related to the metabolic and endocrine system Skin and related structures Is there an activity limitation? Yes Mobility Self-care . Collaboration of Care Progressing No Patient/caregiver maintains a safe environment. Description: Patient/caregiver will demonstrate ability to maintain a safe environment without injuries/falls by 01/31/22. Fall Precautions Progressing No Patient/caregiver demonstrates ability to safely perform and/or administer IV flush Description: - Caregiver and will demonstrate ability to safely perform administration of IV medications by 12/27/21. - Caregiver and will demonstrate ability to correctly perform flushing technique by 12/27/21. Learning/Teaching Needs - IV Therapy Progressing No Patient demonstrates adequate knowledge of diabetes monitoring and treatment. Description: - Patient/caregiver will demonstrate adequate knowledge of diabetes as evidenced by the ability to perform blood sugar monitoring; care of feet, skin, and eyes; signs/symptoms of altered glycemic status states; and their treatment by 01/31/22. - Goal blood sugars to remain WNL. Learning/Teaching Needs - Diabetes Progressing No Patient remains free from signs and symptoms of infections. Description: Patient will remain free from infections and verbalize methods to prevent infections and how to perform foot care by 01/03/22. Infection Prevention - Diabetes Progressing No Patient integumentary care needs met without signs/symptoms of complications Description: - Wound(s) will heal without complications by 01/31/22. - Patient and Caregiver will demonstrate wound care procedure and report complications by 01/31/22. - Control of drainage and prevention with early detection of infection for non-healing wounds by 01/31/22. - Incision healed without signs of infection by 01/31/22. Wound Management Progressing No Interventions Intervention Associated Problem/Goal Status Variance Visit Notes Instruct on Management of Pain Description: - Teach principles of pain management and involve Patient in developing pain control regimen. - Instructed on non-pharmacological pain reduction techniques. - Instruct Patient on the cause(s) of pain. - Instruct Patient to call Home Health for unsatisfactory pain relief. - Offer written material related to pain medication to Patient . - Instruct Patient on administration and safe keeping of pain medications and the need to keep accurate records of dosages and times. - Provide Patient with a recording tool to enter pain level, situation, medication dosage, and effect of administered medications. Problem:Pain/Physica l Discomfort Goal:Patient's pain/physical discomfort will be reduced to the level of patient's stated goal. Completed Teach principles of pain management and involve patient in developing pain control regimen. Instruct patient on the cause(s) of pain. Instruct patient to call agency for unsatisfactory pain relief. Offer written material related to pain medication to patient. Instruct patient on administration and safe keeping of pain medications and the need to keep accurate records of dosages and times. Provide patient with a recording tool to enter pain level, situation, medication dosage, and effect of administered medications. Assess Pain Description: -Perform comprehensive pain assessment of patient's level of pain using Numeric pain scale and assess effectiveness of current pain regimen. -Current medical management for pain is hydrocodone. If no changes or concerns check complete (see Pain Assessment). Problem:Pain/Physica l Discomfort Goal:Patient's pain/physical discomfort will be reduced to the level of patient's stated goal. Completed Hospitalization Risk Description: Instruct Patient in minimizing hospitalization risk related to More than 1 Hospitalization or ED visit in past 12 months, Diabetes, Discharged from Hospital or SNF, Needs help managing Medications, More than 2 Secondary Diagnoses and ADL Assistance Needed. Problem:Collaboratio n of Care Goal:Hosptial Readmission Reduction Completed Assess Vital Signs Description: Obtain and record vital signs. Report to MD . BP:??systolic blood pressure <90 or >160; diastolic blood pressure <60 or >90.?? Temperature:?? >100.5 F.?? Pulse: <60 or >100 bpm.?? Respiratory Rate:?? <12 or >28 /min.?? SPO2: <90%. May check SPO2 as needed for initial assessment or dyspnea. ?? Problem:Collaboratio n of Care Goal:Patient safety met through collaboration for safe care. Completed Instruct Home Safety Description: Instruct patient on strategies/modification s to home environment. Patient up as tolerated with walker or lesser device or no device as directed. Problem:Collaboratio n of Care Goal:Patient safety met through collaboration for safe care. Completed Insurance Verification Description: Verify with patient/caregiver current insurance coverage. Problem:Collaboratio n of Care Goal:Patient safety met through collaboration for safe care. Completed Patient's coverage status: No change in coverage Plan Towards Discharge Description: Document Patient progress towards discharge. Problem:Collaboratio n of Care Goal:Patient safety met through collaboration for safe care. Completed possible discharge on 02/03/22. pt is in agreement Care Coordination Description: Clinician to review plan of care with patient/caregivers(s). Patient/Caregiver(s) agree(s) to plan of care and agrees to participate in care.??Disciplines RN Problem:Collaboratio n of Care Goal:Patient safety met through collaboration for safe care. Completed Plan for Next Visit Description: Next visit plan summation Problem:Collaboratio n of Care Goal:Patient safety met through collaboration for safe care. Completed Next visit scheduled 02/03/22 (date) for sn (plan); Patient aware of and agreeable to plan. Advised to call Agency for non-emergent questions/concerns. Skilled Assessment Risk for Injury Description: Evaluate patient's home environment for potential safety risks, and educate Patient on identified safety risks. Problem:Collaboratio n of Care Goal:Patient safety met through collaboration for safe care. Completed Instruct diet Description: Instruct on Diabetic diet and any fluid restrictions/requiremen ts. Problem:Collaboratio n of Care Goal:Nutritional Status for Optimal Health Completed Medication Reconciliation Description: - Review and identify unnecessary therapeutic duplication. Each clinician to perform bottle check weekly on their first visit of the week. - Patient to take medications from pill bottles set up by Patient Problem:Collaboratio n of Care Goal:Patient verbalizes understanding of medication regimen Completed Medication reconciliation performed with weekly bottle check. Medication Management Description: - Assess Patient ability to manage medications. Provide detailed instruction on proper administration and medication management. - Instruct Patient in medication administration, purpose, dosages, preparation, scheduling, side effects, food/drug & drug/drug interactions, storage, and potential complications. Problem:Collaboratio n of Care Goal:Patient verbalizes understanding of medication regimen Completed Home medication management reviewed with patient. Patient verbalize ability to perform safe home medication administration. Instruct on fall prevention Description: Educate Patient about fall prevention. Problem:Fall Precautions Goal:Patient/caregiv er maintains a safe environment. Completed Report falls to Provider within 24 hours Description: Report witnessed or reported falls to provider within 24 hours . Problem:Fall Precautions Goal:Patient/caregiv er maintains a safe environment. Completed Assess appropriateness for homecare Description: Assess Patient ability to remain safe in current environment. Problem:Fall Precautions Goal:Patient/caregiv er maintains a safe environment. Completed Lab Collection Description: Lab draw for CBC/diff, CMP, CRP and CPK on Tuesdays starting 01/03/22 for diagnosis of E11.628, L08.9 Diabetic foot infection .?? Results to Dr Segura fax [phone] and IV care fax [phone]. Problem:Learning/Tea charisse Needs - IV Therapy Goal:Patient/caregiv er demonstrates ability to safely perform and/or administer IV flush Completed Obtained from PICC. Patient tolerated good. Specimen taken to [facility]. IV Administration Description: Skilled nurse and Caregiver to gather supplies and administer IV medication as ordered including saline and heparin flushes as ordered or per protocol. Caregiver to administer Daptomycin 450mg once every 24hrs IVP, and Cefepime 2g every 8hrs via eclipse ball. Problem:Learning/Tea charisse Needs - IV Therapy Goal:Patient/caregiv er demonstrates ability to safely perform and/or administer IV flush Completed Instruct IV Supplies Description: Instruct Caregiver and in how to gather supplies, prepare supplies, administer IV medication, and disconnect IV medication. Problem:Learning/Tea charisse Needs - IV Therapy Goal:Patient/caregiv er demonstrates ability to safely perform and/or administer IV flush Completed Instruct IV Flush Description: - Instruct Caregiver and in how to perform flushing of IV line according to MD orders or protocol. - Flush IV catheter with 5mL of Saline before and after each infusion, and 5mls Heparin after each infusion is completed. To flush secondary port daily with 5ml saline and 5ml heparin. Problem:Learning/Tea charisse Needs - IV Therapy Goal:Patient/caregiv er demonstrates ability to safely perform and/or administer IV flush Completed Infection Prevention Description: - Instruct Caregiver and in strategies to prevent infection: frequent/proper hand-washing techniques, Standard precautions, avoid crowds and persons with known infections, staying current with immunizations, s/s of infection, use of incentive spirometer, use of antibiotics and encourage adequate diet and fluid intake. - Instruct Caregiver and in how to recognize signs and symptoms of infection and when to notify home care agency and/or physician. Problem:Learning/Tea charisse Needs - IV Therapy Goal:Patient/caregiv er demonstrates ability to safely perform and/or administer IV flush Completed Patient instructed on frequent/proper hand-washing techniques, Standard precautions, avoid crowds and persons with known infections, staying current with immunizations, s/s of infection, use of incentive spirometer, use of antibiotics and encourage adequate diet and fluid intake. IV Dressing Change Description: - Skilled nurse to change IV site dressing per protocol. - PICC dressing to be changed 24 hours after insertion, then weekly and as needed for soiled/loosened dressing. Problem:Learning/Tea charisse Needs - IV Therapy Goal:Patient/caregiv er demonstrates ability to safely perform and/or administer IV flush Completed Dressing change to right performed by SN. Old dressing removed. Well tolerated by patient.. Site Cleanse with chloraprep. Patted dry with gauze. Secured with statlock and tegaderm. See Wound Assessment form for measurements and status of wound. 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 Problem:Learning/Hansa walterg Needs - Diabetes Goal:Patient demonstrates adequate knowledge of diabetes monitoring and treatment. Completed Patient instructed on management of diabetes diet, foot care, administration of insulin and blood glucose monitoring and when to notify HH, physician, or EMS.Patient verbalize understanding of disease process, causative factors, complication, and management related to. Instruct Daily Log Description: - SN to develop blood sugar diary for patient to record daily readings. Instruct patient to monitor and record blood sugars on daily log or glucometer. - Instruct when to call MD/RN or 911. Problem:Learning/Hansa mcqueen Needs - Diabetes Goal:Patient demonstrates adequate knowledge of diabetes monitoring and treatment. Completed Daily log reviewed with Patient . Patient verbalize ability to perform maintenance of a daily log. Blood Glucose Monitoring Description: - Patient to perform blood sugar testing and record in daily log. Instruct to notify physician degreaser operator of fasting blood sugar if <70mg/dl or >300mg/dl for 2 consecutive readings or with any hypoglycemic episode. - Instruct Patient in target ranges of 90-130 before meals and less than 180 one to two hours after meals. - SN to instruct Patient on how to perform blood sugar monitoring using patient's meter, how often and when, and safe disposal of needles and testing equipment. - Check that glucometer is operational, strips are not /stored properly. Arrange for new meter as needed. QC testing done. Problem:Learning/Hansa walterg Needs - Diabetes Goal:Patient demonstrates adequate knowledge of diabetes monitoring and treatment. Completed Infection Prevention Description: Instruct Patient in strategies to prevent infection: frequent/proper hand-washing techniques, Standard precautions, avoid crowds and persons with known infections, staying current with immunizations, s/s of infection, use of incentive spirometer, use of antibiotics and encourage adequate diet and fluid intake and proper disposal of sharps. Problem:Infection Prevention - Diabetes Goal:Patient remains free from signs and symptoms of infections. Completed Assess Feet - Diabetes Description: Assess feet/lower extremities for lesions. Problem:Infection Prevention - Diabetes Goal:Patient remains free from signs and symptoms of infections. Completed Instruct Diabetic Foot Care Description: Instruct Patient in care of feet including: - Checking feet daily for cracks, sores, or cuts. - Washing feet daily with warm water and mild soap, but do not soak feet. - Put lotion on feet every night, but not between toes. - Wear comfortable shoes, not tight or worn out. - Never go barefoot, not even inside the house. - Do not use sharp tools on your feet. - Clip nails straight across. - Do not use hot water bottles/heating pads on feet/legs. - Test water temperature with your elbow. Problem:Infection Prevention - Diabetes Goal:Patient remains free from signs and symptoms of infections. Completed Wound - Custom Protocol Description: Skilled nurse and Caregiver to perform dressing change to wound. Dressing change to consist of: applying bandaid daily and as needed. Family is independent. Problem:Wound Management Goal:Patient integumentary care needs met without signs/symptoms of complications Completed pt's independent in wound care. wound care complete prior to sn arrival. Skin Integrity Description: Instruct patient in disease process, pain management, signs/symptoms of infection, nutrition to promote wound healing, and wound care/dressing. Problem:Wound Management Goal:Patient integumentary care needs met without signs/symptoms of complications Completed documented in this encounter Care Teams Dialysis Biomed Technician Relationship Specialty Start Date End Date Abiodun Segura II, MD [address] [place] [id number] PCP - General FAMILY PRACTICE 03/09/21 documented as of this encounter
--- OUTSIDE RECORDS SUMMARY | 2024-03-02 22:26 | XMS_ITS | Encounter Summary ---
Author Organization [facility] Address [address] [place] [address]. [place], [place] [address] [place] [id number] Care Team Providers Care Quality Control Industrial Engineer Name Role Phone Colton SILVEIRA MD, Abiodun Rushing Primary Care Provider Reason for Visit * Reason Comments Lab (SCAN) Encounter Details Date Type Department Care Team (Latest Contact Info) Description 01/24/2022 Scan HEALTH INFO [facility] Scanned, Doc Med Group Lab (SCAN) Social History Tobacco Use Types Packs/Day [...] Coronavirus/COVID-19? No / Unsure 01/10/2022 11:53 AM THIRD MATE documented as of this encounter Functional Status [...] st Contact Info) Description 03/14/2024 11:45 AM THIRD MATE Office Visit [facility] [phone] Marvin Mckeon MD Three [facility] [address] [place] [address] 03/20/2024 11:30 AM THIRD MATE Office Visit [facility] Family Medicine - [place] [address] [place] [phone] Abiodun Segura II, MD 100 [place] [address] documented as of this encounter Procedures Procedure Name Priority Date/Time Associated Diagnosis Comments OUTSIDE LAB (SCAN ORDER) 01/24/2022 documented in this encounter Results * OUTSIDE LAB (SCAN) (01/24/2022) 01/24/2022 us Doc Med Group Scanned SCANNING Final Resu lt documented in this encounter Visit Diagnoses Not on filedocumented in this encounter Additional Health Concerns Assessment Noted Time PHQ-9 Depression Total Score: 0 03/08/19 9:30 AM THIRD MATE documented as of this encounter Care Teams Quality Control Industrial Engineer Relationship Specialty Start Date End Date Abiodun Segura II, MD [address] [place] [id number] PCP - General FAMILY PRACTICE 03/09/21 documented as of this encounter
--- OUTSIDE RECORDS SUMMARY | 2024-03-02 22:26 | XMS_ITS | Encounter Summary ---
Author Organization [facility] Address [address] [place] [address]. [place], [place] [id number] [place] [address] Care Team Providers Care Fish And Wildlife Scientific Aid Name Role Phone Colton SILVEIRA MD, Abiodun Rushing Primary Care Provider Reason for Visit * Auth/Cert Specialty Diagnoses / Procedures Referred By Lyla chaney Referred To Contact Home Health Services / [facility] Home Care [address] [place] [address] [place] [address] Phone: tel: fax: Referral ID Status Reason Start Date Expiration Date Visits Re quested Visits Authorized [id number] 1 1 Encounter Details Date Type Department Care Team (Late st Contact Info) Description 01/17/2022 11:30 AM FERRY TERMINAL SUPERVISOR Home Care Visit [facility] Home [address] [place] [address] [place] [address] Ysabel Adams RN SN HOME VISIT Social [...] Coronavirus/COVID-19? No / Unsure 01/10/2022 11:53 AM FERRY TERMINAL SUPERVISOR documented as of this encounter Last Filed Vital Signs Vital Sign Reading Time Taken Comments Blood Pressure 120/70 01/17/2022 11:46 AM FERRY TERMINAL SUPERVISOR Pulse 88 01/17/2022 11:46 AM FERRY TERMINAL SUPERVISOR Temperature 36.6 ??C (97.9 ??F) 01/17/2022 11:[address] Respiratory Rate 16 01/17/2022 11:46 AM FERRY TERMINAL SUPERVISOR Oxygen Saturation 100% 01/17/2022 11:46 AM FERRY TERMINAL SUPERVISOR Inhaled Oxygen Concentration - - Weight - [...] st Contact Info) Description 03/14/2024 11:45 AM FERRY TERMINAL SUPERVISOR Office Visit [facility] [phone] Marvin Mckeon MD Three [facility] [address] [place] [address] 03/20/2024 11:30 AM FERRY TERMINAL SUPERVISOR Office Visit [facility] Medical Group Family Medicine - [place] 100 [place] [phone] Abiodun Segura II, MD 100 [place], [place] [phone] documented as of this encounter Visit Diagnoses Not on filedocumented in this encounter Additional Health Concerns Assessment Noted Time PHQ-9 Depression Total Score: 0 03/08/19 22 9:30 AM FERRY TERMINAL SUPERVISOR documented as of this encounter Home Health Visit - Care Plan Visit Details Visit Type -SN - Home Visit Discipline -[facility] Problems Problem Description Start Date Status Goals [...] medication dosage, and effect of administered medications. Problem:Pain/Physic al Discomfort Goal:Patient's pain/physical discomfort will be reduced [...] or concerns check complete (see Pain Assessment). Problem:Pain/Physic al Discomfort Goal:Patient's pain/physical discomfort will be reduced to the level of patient's stated goal. Completed Hospitalization Risk Description: Instruct Patient in minimizing hospitalization risk related to More than 1 Hospitalization or ED visit in past 12 months, Diabetes, Discharged from Hospital or SNF, Needs help managing Medications, More than 2 Secondary Diagnoses and ADL Assistance Needed. Problem:Collaborati on of Care Goal:Hosptial Readmission Reduction Completed Assess Vital Signs Description: Obtain and record vital signs. Report to MD . BP:??systolic blood pressure <90 or >160; diastolic blood pressure <60 or >90.?? Temperature:?? >100.5 F.?? Pulse: <60 or >100 bpm.?? Respiratory Rate:?? <12 or >28 /min.?? SPO2: <90%. May check SPO2 as needed for initial assessment or dyspnea. ?? Problem:Collaborati on of Care Goal:Patient safety met through collaboration for safe care. Completed Instruct Home Safety Description: Instruct patient on strategies/modificati ons to home environment. Patient up as tolerated with walker or lesser device or no device as directed. Problem:Collaborati on of Care Goal:Patient safety met through collaboration for safe care. Completed Insurance Verification Description: Verify with patient/caregiver current insurance coverage. Problem:Collaborati on of Care Goal:Patient safety met through collaboration for safe care. Completed Patient's coverage status: No change in coverage Plan Towards Discharge Description: Document Patient progress towards discharge. Problem:Collaborati on of Care Goal:Patient safety met through collaboration for safe care. Completed Care Coordination Description: Clinician to review plan of care with patient/caregivers(s) . Patient/Caregiver(s) agree(s) to plan of care and agrees to participate in care.??Disciplines RN Problem:Collaborati on of Care Goal:Patient safety met through collaboration for safe care. Completed Plan for Next Visit Description: Next visit plan summation Problem:Collaborati on of Care Goal:Patient safety met through collaboration for safe care. Completed Next visit planning for sn. Skilled Assessment Risk for Injury Description: Evaluate patient's home environment for potential safety risks, and educate Patient on identified safety risks. Problem:Collaborati on of Care Goal:Patient safety met through collaboration for safe care. Completed Instruct diet Description: Instruct on Diabetic diet and any fluid restrictions/requirem ents. Problem:Collaborati on of Care Goal:Nutritional Status for Optimal Health Completed Medication Reconciliation Description: - Review and identify unnecessary therapeutic duplication. Each clinician to perform bottle check weekly on their first visit of the week. - Patient to take medications from pill bottles set up by Patient Problem:Collaborati on of Care Goal:Patient verbalizes understanding of medication regimen Completed Medication reconciliation performed with weekly bottle check. Medication Management Description: - Assess Patient ability to manage medications. Provide detailed instruction on proper administration and medication management. - Instruct Patient in medication administration, purpose, dosages, preparation, scheduling, side effects, food/drug & drug/drug interactions, storage, and potential complications. Problem:Collaborati on of Care Goal:Patient verbalizes understanding of medication regimen Completed Home medication management reviewed with patient. Patient verbalize ability to perform safe home medication administration. Instruct on fall prevention Description: Educate Patient about fall prevention. Problem:Fall Precautions Goal:Patient/caregi britney maintains a safe environment. Completed Report falls to Provider within 24 hours Description: Report witnessed or reported falls to provider within 24 hours . Problem:Fall Precautions Goal:Patient/caregi britney maintains a safe environment. Completed Assess appropriateness for homecare Description: Assess Patient ability to remain safe in current environment. Problem:Fall Precautions Goal:Patient/caregi britney maintains a safe environment. Completed Lab Collection Description: Lab draw for CBC/diff, CMP, CRP and CPK on Tuesdays starting 01/03/22 for diagnosis of E11.628, L08.9 Diabetic foot infection .?? Results to Dr Segura fax [phone] and IV care fax [phone]. Problem:Learning/Te aching Needs - IV Therapy Goal:Patient/caregi britney demonstrates ability to safely perform and/or administer IV flush Completed Obtained from PICC line without difficulty. Patient tolerated good. Specimen taken to [facility]. IV Administration Description: Skilled nurse and Caregiver to gather supplies and administer IV medication as ordered including saline and heparin flushes as ordered or per protocol. Caregiver to administer Daptomycin 450mg once every 24hrs IVP, and Cefepime 2g every 8hrs via eclipse ball. Problem:Learning/Te aching Needs - IV Therapy Goal:Patient/caregi britney demonstrates ability to safely perform and/or administer IV flush Completed Instruct IV Supplies Description: Instruct Caregiver and in how to gather supplies, prepare supplies, administer IV medication, and disconnect IV medication. Problem:Learning/Te aching Needs - IV Therapy Goal:Patient/caregi britney demonstrates ability to safely perform and/or administer [...] daily with 5ml saline and 5ml heparin. Problem:Learning/Te aching Needs - IV Therapy Goal:Patient/caregi britney demonstrates ability to safely perform and/or administer [...] to notify home care agency and/or physician. Problem:Learning/Te aching Needs - IV Therapy Goal:Patient/caregi britney demonstrates ability to safely perform and/or administer [...] weekly and as needed for soiled/loosened dressing. Problem:Learning/Te aching Needs - IV Therapy Goal:Patient/caregi britney demonstrates ability to safely perform and/or administer IV flush Completed Dressing change to right performed by SN. Old dressing removed. Well tolerated by patient.. cleansed with chloraprep. Patted dry.Secured with stat lock, covered with tegaderm. See Wound Assessment form for measurements and status of wound. 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 Problem:Learning/Te aching Needs - Diabetes Goal:Patient demonstrates adequate knowledge [...] Instruct when to call MD/RN or 911. Problem:Learning/Te aching Needs - Diabetes Goal:Patient demonstrates adequate knowledge of diabetes monitoring and treatment. Completed Daily log reviewed with Patient . Patient verbalize ability to perform maintenance of a daily log. Blood Glucose Monitoring Description: - Patient to perform blood sugar testing and record in daily log. Instruct to notify physician package sorter of fasting blood sugar if <70mg/dl or [...] new meter as needed. QC testing done. Problem:Learning/Te aching Needs - Diabetes Goal:Patient demonstrates adequate knowledge [...] needs met without signs/symptoms of complications Completed with variance Patient refused wound care complete by prior to my arrival. Skin Integrity Description: Instruct patient in disease process, pain management, signs/symptoms of infection, nutrition to promote wound healing, and wound care/dressing. Problem:Wound Management Goal:Patient integumentary care needs met without signs/symptoms of complications Completed documented in this encounter Care Teams Fish And Wildlife Scientific Aid Relationship Specialty Start Date End Date Abiodun Segura II, MD [address] [place] [address] PCP - General FAMILY PRACTICE 03/09/21 documented as of this encounter
--- OUTSIDE RECORDS SUMMARY | 2024-03-02 22:26 | XMS_ITS | Encounter Summary ---
Author Organization [facility] Address [address] [place] [address]. [place], [place] [address] [place] [address] Care Team Providers Care Supervisor Microbiology Technologists Name Role Phone Colton SILVEIRA MD, Abiodun Rushing Primary Care Provider Reason for Visit * Auth/Cert Specialty Diagnoses / Procedures Referred By Lyla chaney Referred To Contact Home Health Services / [facility] Care [address] [place] [address] [place] [address] Phone: tel: fax: Referral ID Status Reason Start Date Expiration Date Visits Re quested Visits Authorized [id number] 1 1 Encounter Details Date Type Department Care Team (Late st Contact Info) Description 01/08/2022 Home Care Visit [facility] Home Care [address] [place] [address] [place] [address] Mandy Han, RN [phone] (Work) CASE COMMUNICATION Social History Tobacco Use Types Packs/Day Years [...] In the last 10 days, have joseph u been in contact with someone who was confirmed or suspected to have Coronavirus/COVID-19? No / Unsure 01/01/2022 7:00 PM ANALYTICAL MANAGER documented as of this encounter Functional [...] st Contact Info) Description 03/14/2024 11:45 AM ANALYTICAL MANAGER Office Visit [facility] [phone] Marvin Mckeon MD [facility] [address] [place] [address] 03/20/2024 11:30 AM ANALYTICAL MANAGER Office Visit [facility] Medical Group Family Medicine - [place] 100 [place] [phone] Abiodun Segura II, MD 100 [place] [address] documented as of this encounter Visit Diagnoses Not on filedocumented in this encounter Additional Health Concerns Assessment Noted Time PHQ-9 Depression Total Score: 0 03/08/19 9:30 AM ANALYTICAL MANAGER documented as of this encounter Care Teams Supervisor Microbiology Technologists Relationship Specialty Start Date End Date Abiodun Segura II, MD 100 [place] [address] PCP - General FAMILY PRACTICE 03/09/21 documented as of this encounter
--- OUTSIDE RECORDS SUMMARY | 2024-03-02 22:26 | XMS_ITS | Encounter Summary ---
Author Organization [facility] Address [address] [place] [address]. [place] [address] [place] [address] Care Team Providers Care Retail Store Manager Name Role Phone Colton SILVEIRA MD, Abiodun Rushing Primary Care Provider Reason for Visit * Reason Comments Line Care/Maint * Treatment/Therapy Plan Authorization (Routine) - Pending Review Specialty Diagnoses / Procedures Referred By Lyla t Referred To Contact Diagnoses Other chronic osteomyelitis of foot, unspecified laterality ([facility]/HCC [facility]) Procedures ALTEPLASE RECOMBINANT Abiodun Segura II, MD 100 [place] [address] Phone: tel: fax: [facility] [address] Phone: tel: fax: Referral ID Status Reason Start Date Expiration Date Visits Requested Visits Authorized [id number] Pending Review Medication 02/18/2022 1 1 Encounter Details Date Type Department Care Team (Late st Contact Info) Description 01/10/2022 11:30 AM DEAF AND HARD OF HEARING TEACHER Treatment [facility] [address] Abiodun Segura II, MD 100 [place] [address] Line Care/Maint Social History Tobacco Use Types Packs/Day Years [...] Coronavirus/COVID-19? No / Unsure 01/10/2022 11:53 AM DEAF AND HARD OF HEARING TEACHER documented as of this encounter Functional [...] documented in this encounter Progress Notes * Chantel Honeycutt RN - 01/10/2022 11:30 AM CST Patient has a double lumen picc line. The PICC line flushes in both lumen with good blood return out of each lumen. Lab work was drawn out of the red lumen with out complications and flushed with 20 ml of NS. Patient verbalized they will flush both lumens with saline and heparin every day. Home health nurse Sunshine is notified. AND HARD OF HEARING TEACHER documented in this encounter Plan of Treatment Upcoming Encounters Date Type Department Care Team (Late st Contact Info) Description 03/14/2024 11:45 AM DEAF AND HARD OF HEARING TEACHER Office Visit [facility] [phone] Marvin Mckeon MD [address] [facility] [address] [place] [address] 03/20/2024 11:30 AM DEAF AND HARD OF HEARING TEACHER Office Visit [facility] Medical Group Family Medicine - [place] 100 [place] [phone] Abiodun Segura II, MD 100 [place], [place] [phone] documented as of this encounter Procedures Procedure Name Priority Date/Time Associated Diagnosis Comments C-REACTIVE PROTEIN Routine 01/10/2022 12 :22 PM DEAF AND HARD OF HEARING TEACHER Osteomyelitis ([facility] HHS/HCC) CK (CPK) Routine 01/10/2022 12:22 PM DEAF AND HARD OF HEARING TEACHER Osteomyelitis ([facility] HHS/HCC) documented in this encounter Results * CK (CPK) (01/10/2022 12:22 PM DEAF AND HARD OF HEARING TEACHER) CPK 106 21 - 215 U/L 01/10/2022 1:30 PM DEAF AND HARD OF HEARING TEACHER [facility] 01/10/2022 12:2 2 PM DEAF AND HARD OF HEARING TEACHER Abiodun Segura II, MD LABORATORY Final R esult Performing Organization Address City/[facility]/ZIP Co de Phone Number [facility] [address] [place] [address], [place] [phone] * (ABNORMAL) C-REACTIVE PROTEIN (01/10/2022 12:22 PM DEAF AND HARD OF HEARING TEACHER) C-REACTIVE PROTEIN 2.35(H) <0.29 mg/dL 01/10/2022 1:30 PM DEAF AND HARD OF HEARING TEACHER [facility] 01/10/2022 12:2 2 PM DEAF AND HARD OF HEARING TEACHER Abiodun Segura II, MD LABORATORY Final R esult Performing Organization Address City/[facility] Co de Phone Number [facility] [address] [place] [address], [place] [phone] documented in this encounter Visit Diagnoses Diagnosis Osteomyelitis (CMS/HCC [facility])- Primary Unspecified osteomyelitis, site unspecified documented in this encounter Additional Health Concerns Assessment Noted Time PHQ-9 Depression Total Score: 0 03/08/19 9:30 AM DEAF AND HARD OF HEARING TEACHER documented as of this encounter Care Teams Retail Store Manager Relationship Specialty Start Date End Date Abiodun Segura II, MD 100 [place] [address] PCP - General FAMILY PRACTICE 03/09/21 documented as of this encounter
--- OUTSIDE RECORDS SUMMARY | 2024-03-02 22:26 | XMS_ITS | Encounter Summary ---
Author Organization [facility] Address [address] [place] [address]. [place], [place] [id number] [place] [address] Care Team Providers Care Cotton Buyer Name Role Phone Colton SILVEIRA MD, Abiodun Rushing Primary Care Provider Reason for Visit * Reason Comments Lab (SCAN) Encounter Details Date Type Department Care Team (Latest Contact Info) Description 01/31/2022 Scan HEALTH INFO SRVCS Scanned, Doc Med [...] Coronavirus/COVID-19? No / Unsure 01/10/2022 11:53 AM SCRUB WHEEL OPERATOR documented as of this encounter Functional [...] st Contact Info) Description 03/14/2024 11:45 AM SCRUB WHEEL OPERATOR Office Visit [facility] [phone] Marvin Mckeon MD Three [facility] [address] [place] [address] 03/20/2024 11:30 AM SCRUB WHEEL OPERATOR Office Visit [facility] Family Medicine - [place] 100 [place] [phone] Abiodun Segura II, MD 100 [place] [address] documented as of this encounter Procedures Procedure Name Priority Date/Time Associated Diagnosis Comments OUTSIDE LAB (SCAN ORDER) 01/31/2022 documented in this encounter Results * OUTSIDE LAB (SCAN) (01/31/2022) 01/31/2022 us Doc Med Group Scanned SCANNING Final Resu lt documented in this encounter Visit Diagnoses Not on filedocumented in this encounter Additional Health Concerns Assessment Noted Time PHQ-9 Depression Total Score: 0 03/08/19 9:30 AM SCRUB WHEEL OPERATOR documented as of this encounter Care Teams Cotton Buyer Relationship Specialty Start Date End Date Abiodun Segura II, MD [address] [place] [address] PCP - General FAMILY PRACTICE 03/09/21 documented as of this encounter
--- OUTSIDE RECORDS SUMMARY | 2024-03-02 22:26 | XMS_ITS | Encounter Summary ---
Author Organization [facility] Address [address] [place] [address]. [place], [place] [address] [place] [address] Care Team Providers Care Fish Warden Name Role Phone Colton SILVEIRA MD, Abiodun Rushing Primary Care Provider Reason for Visit * Reason Comments Lab (SCAN) Encounter Details Date Type Department Care Team (Latest Contact Info) Description 01/10/2022 Scan HEALTH INFO SRVCS Scanned, Doc Med [...] Coronavirus/COVID-19? No / Unsure 01/10/2022 11:53 AM CONSTRUCTION ECONOMIST documented as of this encounter Functional Status [...] st Contact Info) Description 03/14/2024 11:45 AM CONSTRUCTION ECONOMIST Office Visit [facility] [phone] Marvin Mckeon MD Three [facility] [address] [place] [address] 03/20/2024 11:30 AM CONSTRUCTION ECONOMIST Office Visit [facility] Medical Group Family Medicine - [place] 100 [place] [phone] Abiodun Segura II, MD 100 [place] [address] documented as of this encounter Procedures Procedure Name Priority Date/Time Associated Diagnosis Comments OUTSIDE LAB (SCAN ORDER) 01/10/2022 documented in this encounter Results * OUTSIDE LAB (SCAN) (01/10/2022) 01/10/2022 us Doc Med Group Scanned SCANNING Final Resu lt documented in this encounter Visit Diagnoses Not on filedocumented in this encounter Additional Health Concerns Assessment Noted Time PHQ-9 Depression Total Score: 0 03/08/19 9:30 AM CONSTRUCTION ECONOMIST documented as of this encounter Care Teams Fish Warden Relationship Specialty Start Date End Date Abiodun Segura II, MD [address] [place] [address] PCP - General FAMILY PRACTICE 03/09/21 documented as of this encounter
--- OUTSIDE RECORDS SUMMARY | 2024-03-02 22:26 | XMS_ITS | Encounter Summary ---
Author Organization [facility] Address [address] [place] [address]. [place] [address] [place] [address] Care Team Providers Care Veterinary Technician Instructor Name Role Phone Colton SILVEIRA MD, Abiodun Rushing Primary Care Provider Encounter Details Date Type Department Care Team (Late st Contact Info) Description 01/03/2022 Orders Only [facility] [address] [place], [place] [id number] Abiodun Segura II, MD [address] [place] [phone] Social History Tobacco Use Types Packs/Day [...] suspected to have Coronavirus/COVID-19? No / Unsure 01/08/2022 5:16 PM FILM LOADER documented as of this encounter Functional Status [...] st Contact Info) Description 03/14/2024 11:45 AM FILM LOADER Office Visit [facility] [phone] Marvin Mckeon MD [facility] [address] [place] [address] 03/20/2024 11:30 AM FILM LOADER Office Visit [facility] Family Medicine - [place] [address] [place] [phone] Abiodun Segura II, MD [address] [place] [address] documented as of this encounter Results * CK (CPK) (01/03/2022 12:00 PM FILM LOADER) CPK 110 26 - 192 U/L 01/03/2022 2:52 PM FILM LOADER [facility] 01/03/2022 12:0 0 PM FILM LOADER Abiodun Segura II, MD LABORATORY Final R esult Performing Organization Address [facility]/ZIP Co de Phone Number [facility] [address] [place] [address], [place] [phone] * (ABNORMAL) C-REACTIVE PROTEIN (01/03/2022 12:00 PM FILM LOADER) Pathologist [facility] C-REACTIVE PROTEIN 2.10(H) <0.9 mg/dL 01/03/2022 2:52 PM FILM LOADER [facility] 01/03/2022 12:0 0 PM FILM LOADER Abiodun Segura II, MD LABORATORY Final R [facility] Performing Organization Address City/[facility]/ZIP Co de Phone Number [facility] [address] [place] [address], [place] [phone] * (ABNORMAL) CBC W/DIFF AUTOMATED (01/03/2022 12:00 PM FILM LOADER) WBC 10.1 4.4 - 11.0 x10'3/uL 01/03/2022 2:33 PM FILM LOADER [facility] RBC 3.82(L) 4.50 - 5.10 x10'6/uL 01/03/2022 2:33 PM FILM LOADER [facility] HGB 11.5(L) 12.3 - 15.3 G/DL 01/03/2022 2:33 PM FILM LOADER [facility] HCT 33.9(L) 35.9 - 44.6 % 01/03/2022 2:33 PM [facility] MCV 88.7 80.0 - 96.0 FL 01/03/2022 2:33 PM [facility] MCH 30.1 25.3 - 30.9 PG 01/03/2022 2:33 PM [facility] MCHC 33.9 31.0 - 34.1 G/DL 01/03/2022 2:33 PM [facility] RDW 13.2 12.4 - 15.1 % 01/03/2022 2:33 PM [facility] PLT 282 151 - 353 x10'3/uL 01/03/2022 2:33 PM [facility] MPV 11.7 9.6 - 12.0 FL 01/03/2022 2:33 PM [facility] RBC MORPHOLOGY NORMAL 01/03/2022 2:33 PM [facility] PLT MORPH. NORMAL 01/03/2022 2:33 PM [facility] WBC MORPHOLOGY NORMAL 01/03/2022 2:33 PM [facility] LYMPHOCYTES % 26.4 15.8 - 45.0 % 01/03/2022 2:33 PM [facility] NEUTROPHILS % 66.6 42.1 - 71.9 % 01/03/2022 2:33 PM [facility] MONOCYTES % 4.1(L) 5.7 - 12.5 % 01/03/2022 2:33 PM [facility] EOSINOPHILS 2.0 0.0 - 5.6 % 01/03/2022 2:33 PM [facility] BASOPHILS 0.7 0.0 - 1.3 % 01/03/2022 2:33 PM FILM LOADER [facility] ABS. NEUTROPHILS 6.75(H) 1.40 - 6.00 x10'3/uL 01/03/2022 2:33 PM FILM LOADER [facility] IMMATURE GRANS % 0.2 0.0 - 0.5 % 01/03/2022 2:33 PM FILM LOADER [facility] ABS. LYMPHOCYTES 2.67 0.80 - 4.70 x10'3/uL 01/03/2022 2:33 PM [facility] 01/03/2022 12:0 0 PM FILM LOADER Abiodun Segura II, MD LABORATORY Final R esult [facility] [address] [place] [address], [place] [phone] * (ABNORMAL) COMPREHENSIVE METABOLIC PANEL (01/03/2022 12:00 PM FILM LOADER) GLUCOSE 299(H) 70 - 99 MG/DL 01/03/2022 2:52 PM [facility] BUN 27(H) 7 - 18 MG/DL 01/03/2022 2:52 PM [facility] CREATININE S/P/B 1.06(H) 0.55 - 1.02 MG/DL 01/03/2022 2:52 PM [facility] SODIUM S/P/B 136 136 - 145 MMOL/L 01/03/2022 2:52 PM [facility] POTASSIUM S/P/B 4.7 3.5 - 5.1 MMOL/L 01/03/2022 2:52 PM [facility] CHLORIDE S/P/B 102 100 - 108 MMOL/L 01/03/2022 2:52 PM [facility] CO2 25.0 21 - 32 MMOL/L 01/03/2022 2:52 PM [facility] CALCIUM S/P/B 9.5 8.5 - 10.1 MG/DL 01/03/2022 2:52 PM [facility] BILIRUBIN TOTAL S/P/B 0.5 0.2 - 1.2 MG/DL 01/03/2022 2:52 PM [facility] TOTAL PROTEIN S/P/B 8.8(H) 6.4 - 8.2 G/DL 01/03/2022 2:52 PM [facility] ALBUMIN S/P/B 3.4 3.4 - 5.0 G/DL 01/03/2022 2:52 PM [facility] AST 21 15 - 37 U/L 01/03/2022 2:52 PM [facility] ALT 41 14 - 55 U/L 01/03/2022 2:52 PM [facility] ALKALINE PHOSPHATASE S/P/B 166(H) 50 - 136 U/L 01/03/2022 2:52 PM [facility] ANION GAP 9.0 5 - 15 MMOL/L 01/03/2022 2:52 PM [facility] BUN CREATININE RATIO 25.5 6 - 26 01/03/2022 2:52 PM [facility] A/G RATIO 0.6(L) 1.0 - 2.0 RATIO 01/03/2022 2:52 PM [facility] GFR ESTIMATE 64(L) >90 ML/MIN/1.7 3 M2 01/03/2022 2:52 PM [facility] Comment: NOTE: eGFR is not calculated for patients <18 years of age. This is an estimated GFR calculation using the new CKD EPI creatinine equation without race and so does not require a correction factor for race. This estimated GFR should not be used for calculating drug doses. 01/03/2022 12:0 0 PM FILM LOADER Abiodun Segura II, MD LABORATORY Final R esult 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
--- OUTSIDE RECORDS SUMMARY | 2024-03-02 22:26 | XMS_ITS | Encounter Summary ---
Author Organization [facility] Address [address] [place] [address]. [place], [place] [address] [place] [address] Care Team Providers Care Log Washer Name Role Phone Colton SILVEIRA MD, Abiodun Rushing Primary Care Provider Reason for Visit * Auth/Cert Specialty Diagnoses / Procedures Referred By Lyla chaney Referred To Contact Home Health Services / [facility] Home Care [address] [place] [address] [place] [address] Phone: tel: fax: Referral ID Status Reason Start Date Expiration Date Visits Re quested Visits Authorized [id number] 1 1 Encounter Details Date Type Department Care Team (Late st Contact Info) Description 01/24/2022 10:45 AM SHIRT SORTER Home Care Visit [facility] Home [address] [place] [address] [place] [address] Ysabel Adams RN SN HOME VISIT Social [...] Coronavirus/COVID-19? No / Unsure 01/10/2022 11:53 AM SHIRT SORTER documented as of this encounter Last Filed Vital Signs Vital Sign Reading Time Taken Comments Blood Pressure 120/78 01/24/2022 12:09 PM SHIRT SORTER Pulse 88 01/24/2022 12:09 PM SHIRT SORTER Temperature 36.6 ??C (97.9 ??F) 01/24/2022 12:[address] Respiratory Rate 18 01/24/2022 12:09 PM SHIRT SORTER Oxygen Saturation 100% 01/24/2022 12:09 PM SHIRT SORTER Inhaled Oxygen Concentration - - Weight - [...] st Contact Info) Description 03/14/2024 11:45 AM SHIRT SORTER Office Visit [facility]-[address] [phone] Marvin Mckeon MD [address] [facility] [address] [place] [address] 03/20/2024 11:30 AM SHIRT SORTER Office Visit [facility] Medical Group Family Medicine - [place] [address] [place] [phone] Abiodun Segura II, MD [address] [place], [place] [phone] documented as of this encounter Visit Diagnoses Not on filedocumented in this encounter Additional Health Concerns Assessment Noted Time PHQ-9 Depression Total Score: 0 03/08/19 22 9:30 AM SHIRT SORTER documented as of this encounter Home Health Visit - Care Plan Visit Details Visit Type -SN - Home Visit Discipline -Fdc Problems Problem Description Start Date Status Goals Interve ntions Pain/Physical Discomfort Disciplines: SN Patient is experiencing pain/physical discomfort. 12/27/2021 Active 1 goal linked to scheduled/documen rock intervention 2 goal interventions scheduled/documen rock in this visit Collaboration of Care Disciplines: SN Collaboration for safe care. 12/27/2021 Active 5 goals linked to scheduled/documen orck interventions 11 goal interventions scheduled/documen rock in [...] for safe care. Completed Next visit scheduled 01/31/22 (date) for sn visit (plan); Patient aware of and agreeable to [...] infection .?? Results to Dr Segura fax [phone] and IV care fax [phone]. Problem:Learning/Tea charisse Needs - IV Therapy Goal:Patient/caregiv er demonstrates ability to safely perform and/or administer IV flush Completed Obtained labs from [facility] without difficulty. Specimen [facility] to [facility]. IV Administration Description: Skilled nurse and [...] tolerated by patient.. cleansed with chloraprep. Patted dry with gauze. Applied dry. Secured with stat lock and transparent film. See Wound Assessment form for measurements and status of wound. 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 Problem:Learning/Hansa charisse Needs - Diabetes Goal:Patient demonstrates adequate knowledge of diabetes monitoring and treatment. Completed Patient instructed on management of diabetes diet, administration of insulin and blood glucose monitoring [...] when to call MD/RN or 911. Problem:Learning/Hansa charisse Needs - Diabetes Goal:Patient demonstrates adequate knowledge of diabetes monitoring and treatment. Completed Daily log reviewed with Patient . Patient verbalize ability to perform maintenance of a daily log. Blood Glucose Monitoring Description: - Patient to perform blood sugar testing and record in daily log. Instruct to notify physician food science professor of fasting blood sugar if <70mg/dl or [...] meter as needed. QC testing done. Problem:Learning/Hansa charisse Needs - Diabetes Goal:Patient demonstrates adequate knowledge [...] needs met without signs/symptoms of complications Completed Skin Integrity Description: Instruct patient in disease process, pain management, signs/symptoms of infection, nutrition to promote wound healing, and wound care/dressing. Problem:Wound Management Goal:Patient integumentary care needs met without signs/symptoms of complications Completed documented in this encounter Care Teams Log Washer Relationship Specialty Start Date End Date Abiodun Segura II, MD [address] [place] [id number] PCP - General FAMILY PRACTICE 03/09/21 documented as of this encounter
--- OUTSIDE RECORDS SUMMARY | 2024-03-02 22:26 | XMS_ITS | Encounter Summary ---
Author Organization [facility] Address [address] [place] [address]. [place], [place] [address] [place] [address] Care Team Providers Care Test Driver Name Role Phone Colton SILVEIRA MD, Abiodun Rushing Primary Care Provider Reason for Referral * Imaging (Routine) - Closed Specialty Diagnoses / Procedures Referred By Contac t Referred To Contact RADIOLOGY Diagnoses Pain and numbness of right upper extremity Procedures USV JOANIE DUPLEX UP EXT RT Lex Mancilla PA [address] [place] [address] Phone: tel: fax: Referral ID Status Reason Start Date Expiration Date Visits Re quested Visits Authorized [id number] Closed 01/09/2022 02/09/2023 1 1 RACTING OFFICER Reason for Visit * Imaging (Routine) - Closed Specialty Diagnoses / Procedures Referred By Contac t Referred To Contact RADIOLOGY Diagnoses Pain and numbness of right upper extremity Procedures USV JOANIE DUPLEX UP EXT RT Lex Mancilla PA [address] [place] [address] Phone: tel: fax: Referral ID Status Reason Start Date Expiration Date Visits Re quested Visits Authorized [id number] Closed 01/09/2022 02/09/2023 1 1 Encounter Details Date Type Department Care Team (Latest Contact Info) Description 01/09/2022 8:30 AM CONTRACTING OFFICER - 01/09/2022 11:59 PM CONTRACTING OFFICER Hospital Encounter [facility] [place] [address] Lex Mancilla PA [address] [place] [address] Discharge Disposition: Home or Self Care (Routine [...] Coronavirus/COVID-19? No / Unsure 01/08/2022 5:16 PM CONTRACTING OFFICER documented as of this encounter Functional Status [...] clinician.] 90 tablet 3 09/24/2020 08/08/19 23 ceFEPIme 2 g in sodium chloride 0.9 % SOLN 100 mL Inject 2 g into the vein every 8 (eight) hours for 38 days. 100 mL 38 12/26/2021 02/03/20 22 cyclobenzaprine 10 MG tablet Take 1 tablet (10 mg total) by mouth 3 (three) times daily as needed. 15 tablet 08/17/2021 03/15/19 23 DAPTOmycin 450 mg in sodium chloride 0.9 % SOLN 100 mL Inject 450 mg into the vein daily for 37 days. 100 mL 37 12/27/2021 02/03/20 22 Dulaglutide (TRULICITY) 3 MG/0.5ML Solution Pen-injectorIndicat ions:diabetes [...] Indications: Rash Apply to face 10/28/2021 10/12/19 hydrOXYzine (ATARAX) 25 MG tabletIndications:B urning Sensation and Itching (Inactive) Take 1-2 tablets (25-50 mg total) by mouth nightly at bedtime. Indications: Burning Feeling and Itching 10/28/2021 10/12/19 insulin lispro protamine-insulin lispro (HUMALOG MIX 75/25) (75-25) 100 UNIT/ML SuspensionIndicatio ns:diabetes Inject 55 Units into the skin every evening. Indications: diabetes 05/06/19 insulin lispro protamine-insulin lispro (HUMALOG MIX 75/25) (75-25) 100 UNIT/ML SuspensionIndicatio ns:diabetes Inject 65 Units into the skin every morning. Indications: diabetes 05/06/19 linaCLOtide 145 MCG capsuleIndications: Chronic idiopathic constipation [...] the morning. 30 capsule 1 07/14/2021 10/12/19 23 ondansetron 4 MG disintegrating tabletIndications:N ausea Take 1 tablet (4 mg total) by mouth every 8 (eight) hours as needed for Nausea. 20 tablet 07/11/2021 10/12/19 23 simvastatin (ZOCOR) 40 MG tabletIndications:H [...] 01/08/2022 09/04/19 documented as of this encounter Plan of Treatment Upcoming Encounters Date Type Department Care Team (Late st Contact Info) Description 03/14/2024 11:45 AM CONTRACTING OFFICER Office Visit [facility] [phone] Marvin Mkceon MD [address] [facility] [address] [place] [address] 03/20/2024 11:30 AM CONTRACTING OFFICER Office Visit [facility] Medical Group Family Medicine - [place] [address] [place] [phone] Abiodun Segura II, MD [address] [place] [address] documented as of this encounter Procedures Procedure Name Priority Date/Time Associated Diagnosis Comments USV JOANIE DUPLEX UP EXT RT Routine 01/09/2022 8:58 AM CONTRACTING OFFICER Pain and numbness of right upper extremity documented in this encounter Results * USV JOANIE DUPLEX UP EXT RT (01/09/2022 8:58 AM CONTRACTING OFFICER) Anatomical Region Laterality Modality Extremity Vascular Ultraso und 01/09/2022 8:38 AM CONTRACTING OFFICER Narrative 01/09/2022 5:56 PM CONTRACTING OFFICER ?VENOUS DUPLEX IMAGING ?RIGHT UPPER EXTREMITY ? VASCULAR LAB Pat.Name: ??FORDESMELENA STEPHANIE ?Pat.ID: ?[id number] ? St.Date: ?? 01/09/2022 ?Refer.: ??Abiodun Segura ? Exam Time: 8:38:00 AM ? Study Type:MARINO VS Venous Duplex Arm Rt ??Age: ??1970,51Y ? Sex: ? F ? Sonogrphr: Shahla Toscano RDMS, RVT Pat. Stat.:Outpatient ? History / Clinical:Right arm pain-tenderness since placement of Rt Brac PICC line, no signif swelling. ??No hx VTE. PMH- HTN. HLD. DM. osteo w/ toe amp. Prior 01/02/2022- negative Procedures: Danielle scale, Color Doppler imaging, Doppler Spectral Analysis Race: ?B ? ++++++++++++++++++++++++++++++++++++ SUMMARY: ++++++++++++++++++++++++++++++++++++ Right upper extremity exam: ??There are NO apparent, deep or superficial vein, ACUTE character venous filling defects visualized in the central, brachial or superficial veins. ??Limited views of distal brachial, distal cephalic and distal basilic veins due to PICC/dressing. ??Questionable area of narrowing at distal subclavian vein at clavicle. ??Resting venous flow is normal pulsatile/phasic in the central veins. Left upper extremity LIMITED: ??Resting venous flow is normal pulsatile/phasic in the central veins. Compared to previous exam done 01/02/2022 , there is no significant change. CONCLUSION: Normal study right upper extremity, bilateral central veins, with no evidence of deep or superficial vein thrombosis. ? <Electronic Signature> 01/09/2022 05:56 PM Hubert Barrera M.D. Procedure Note Hubert Barrera MD - 01/09/2022 VENOUS DUPLEX IMAGING RIGHT UPPER EXTREMITY VASCULAR LAB Pat.Name: LENA YOUNGBLOOD Pat.ID: [id number] .Date: 01/09/2022 Refer.MD: Abiodun Segura Exam Time: 8:38:00 AM Study Type:MARINO VS Venous Duplex Arm Rt Age: 3 1970,51Y Sex: F Sonogrphr: Shahla Toscano RDMS, RVT Pat. Stat.:Outpatient History / Clinical:Right arm pain-tenderness since placement of Rt Brac PICC line, no signif swelling. No hx VTE. PMH- HTN. HLD. DM. osteo w/ toe amp. Prior 01/02/2022- negative Procedures: Danielle scale, Color Doppler imaging, Doppler Spectral Analysis Race: B ++++++++++++++++++++++++++++++++++++ SUMMARY: ++++++++++++++++++++++++++++++++++++ Right upper extremity exam: There are NO apparent, deep or superficial vein, ACUTE character venous filling defects visualized in the central, brachial or superficial veins. Limited views of distal brachial, distal cephalic and distal basilic veins due to PICC/dressing. Questionable area of narrowing at distal subclavian vein at clavicle. Resting venous flow is normal pulsatile/phasic in the central veins. Left upper extremity LIMITED: Resting venous flow is normal pulsatile/phasic in the central veins. Compared to previous exam done 01/02/2022 , there is no significant change. CONCLUSION: Normal study right upper extremity, bilateral central veins, with no evidence of deep or superficial vein thrombosis. <Electronic Signature> 01/09/2022 05:56 PM Hubert Barrera M.D. us Lex MARIE VASC Final Resu lt documented in this encounter Visit Diagnoses Diagnosis Pain and numbness of right upper extremity documented in this encounter Additional Health Concerns Assessment Noted Time PHQ-9 Depression Total Score: 0 03/08/19 9:30 AM CONTRACTING OFFICER documented as of this encounter Care Teams Test Driver Relationship Specialty Start Date End Date Abiodun Segura II, MD [address] [place] [address] PCP - General FAMILY PRACTICE 03/09/21 documented as of this encounter
--- OUTSIDE RECORDS SUMMARY | 2024-03-02 22:26 | XMS_ITS | Encounter Summary ---
Author Organization [facility] Address [address] [place] [address]. [place] [address] [place] [address] Care Team Providers Care Head Mechanic Name Role Phone Colton SILVEIRA MD, Abiodun Rushing Primary Care Provider Encounter Details Date Type Department Care Team (Late st Contact Info) Description 01/10/2022 1:14 PM SCHOOL EXAMINER - 01/10/2022 11:59 PM [facility] Hospital Encounter [facility] [address] [place], [place] [phone] Abiodun Segura II, MD [address] [place] [address] Discharge Disposition: Home or Self Care [...] Coronavirus/COVID-19? No / Unsure 01/10/2022 11:53 AM SCHOOL EXAMINER documented as of this encounter Functional Status [...] Date Author Status No 12/17/2021 2:10 AM CDAmanda Law RN Active documented in this encounter Medications [...] 3 Day Supply 12 tablet 01/08/2022 09/04/19 23 documented as of this encounter Plan of Treatment Upcoming Encounters Date Type Department Care Team (Late st Contact Info) Description 03/14/2024 11:45 AM SCHOOL EXAMINER Office Visit [facility] [address] Marvin Mckeon MD Three [facility] [address] [facility] [place], [place] [phone] 03/20/2024 11:30 AM SCHOOL EXAMINER Office Visit [facility] Medical Group Family Medicine - [place] [address] [place] [phone] Abiodun Segura II, MD 100 [place], [place] [phone] documented as of this encounter Procedures Procedure Name Priority Date/Time Associated Diagnosis Comments COMPREHENSIVE METABOLIC PANEL Routine 01/10/2022 10:45 AM SCHOOL EXAMINER Bullosis diabeticorum (CMS/HCC HHS/HCC) C-REACTIVE PROTEIN Routine 01/10/2022 10 :45 AM SCHOOL EXAMINER Bullosis diabeticorum (CMS/HCC HHS/HCC) CBC W/DIFF AUTOMATED Routine 01/10/2022 10:45 AM SCHOOL EXAMINER Bullosis diabeticorum (CMS/HCC HHS/HCC) CK (CPK) Routine 01/10/2022 10:45 AM SCHOOL EXAMINER Bullosis diabeticorum (CMS/HCC HHS/HCC) documented in this encounter Results * (ABNORMAL) COMPREHENSIVE METABOLIC PANEL (01/10/2022 10:45 AM SCHOOL EXAMINER) Pathologist [facility] GLUCOSE 106(H) 70 - 99 MG/DL 01/10/2022 2:02 PM [facility] BUN 21(H) 7 - 18 MG/DL 01/10/2022 2:02 PM [facility] CREATININE S/P/B 1.08(H) 0.55 - 1.02 MG/DL 01/10/2022 2:02 PM [facility] SODIUM S/P/B 140 136 - 145 MMOL/L 01/10/2022 2:02 PM [facility] POTASSIUM S/P/B 3.9 3.5 - 5.1 MMOL/L 01/10/2022 2:02 PM [facility] CHLORIDE S/P/B 103 100 - 108 MMOL/L 01/10/2022 2:02 PM [facility] CO2 21.7 21 - 32 MMOL/L 01/10/2022 2:02 PM [facility] CALCIUM S/P/B 9.3 8.5 - 10.1 MG/DL 01/10/2022 2:02 PM [facility] BILIRUBIN TOTAL S/P/B 0.3 0.2 - 1.2 MG/DL 01/10/2022 2:02 PM [facility] TOTAL PROTEIN S/P/B 9.4(H) 6.4 - 8.2 G/DL 01/10/2022 2:02 PM [facility] ALBUMIN S/P/B 3.5 3.4 - 5.0 G/DL 01/10/2022 2:02 PM [facility] AST 46(H) 15 - 37 U/L 01/10/2022 2:02 PM [facility] ALT 52 14 - 55 U/L 01/10/2022 2:02 PM [facility] ALKALINE PHOSPHATASE S/P/B 217(H) 50 - 136 U/L 01/10/2022 2:02 PM [facility] ANION GAP 15.3(H) 5 - 15 MMOL/L 01/10/2022 2:02 PM [facility] BUN CREATININE RATIO 19.4 6 - 26 01/10/2022 2:02 PM [facility] A/G RATIO 0.6(L) 1.0 - 2.0 RATIO 01/10/2022 2:02 PM [facility] GFR ESTIMATE 63(L) >90 ML/MIN/1.7 3 M2 01/10/2022 2:02 PM [facility] Comment: NOTE: eGFR is not calculated for patients <18 years of age. This is an estimated GFR calculation using the new CKD EPI creatinine equation without race and so does not require a correction factor for race. This estimated GFR should not be used for calculating drug doses. 01/10/2022 10:4 5 AM SCHOOL EXAMINER Abiodun Segura II, MD LABORATORY Final R esult [facility] [address] [place] [address], [place] [phone] * (ABNORMAL) CBC W/DIFF AUTOMATED (01/10/2022 10:45 AM SCHOOL EXAMINER) [facility] Signature WBC 4.6 4.4 - 11.0 x10'3/uL 01/10/2022 1:49 PM SCHOOL EXAMINER [facility] RBC 4.01(L) 4.50 - 5.10 x10'6/uL 01/10/2022 1:49 PM [facility] HGB 11.9(L) 12.3 - 15.3 G/DL 01/10/2022 1:49 PM [facility] HCT 35.5(L) 35.9 - 44.6 % 01/10/2022 1:49 PM [facility] MCV 88.5 80.0 - 96.0 FL 01/10/2022 1:49 PM [facility] MCH 29.7 25.3 - 30.9 PG 01/10/2022 1:49 PM [facility] MCHC 33.5 31.0 - 34.1 G/DL 01/10/2022 1:49 PM [facility] RDW 13.4 12.4 - 15.1 % 01/10/2022 1:49 PM [facility] PLT 182 151 - 353 x10'3/uL 01/10/2022 1:49 PM [facility] MPV 12.5(H) 9.6 - 12.0 FL 01/10/2022 1:49 PM [facility] NEUTROPHILS % 50.6 42.1 - 71.9 % 01/10/2022 2:10 PM [facility] LYMPHOCYTES % 33.4 15.8 - 45.0 % 01/10/2022 2:10 PM [facility] BASOPHILS 1.1 0.0 - 1.3 % 01/10/2022 2:10 PM SCHOOL EXAMINER [facility] EOSINOPHILS 5.4 0.0 - 5.6 % 01/10/2022 2:10 PM [facility] MONOCYTES % 9.5 5.7 - 12.5 % 01/10/2022 2:10 PM [facility] IMMATURE GRANS % 0.0 0.0 - 0.5 % 01/10/2022 2:10 PM [facility] ABS. NEUTROPHILS 2.33 1.40 - 6.00 x10'3/uL 01/10/2022 2:10 PM [facility] ABS. LYMPHOCYTES 1.54 0.80 - 4.70 x10'3/uL 01/10/2022 2:10 PM [facility] PLT MORPH. PLATELET COUNT MAY BE ARTIFACTUALLY LOW DUE TO PLATELET CLUMPING 01/10/2022 2:10 PM [facility] RBC MORPHOLOGY NORMAL 01/10/2022 2:10 PM [facility] WBC MORPHOLOGY NORMAL 01/10/2022 2:10 PM [facility] 01/10/2022 10:4 5 AM SCHOOL EXAMINER us Abiodun Segura II, MD LABORATORY Edited Result - Final [facility] [address] [place] [address], * (ABNORMAL) C-REACTIVE PROTEIN (01/10/2022 10:45 AM SCHOOL EXAMINER) C-REACTIVE PROTEIN 3.60(H) <0.9 mg/dL 01/10/2022 2:02 PM [facility] 01/10/2022 10:4 5 AM SCHOOL EXAMINER Abiodun Segura II, MD LABORATORY Final R esult Performing Organization Address City/[facility] Co de Phone Number [facility] [address] [place] [address], [place] [phone] * CK (CPK) (01/10/2022 10:45 AM SCHOOL EXAMINER) CPK 114 26 - 192 U/L 01/10/2022 2:02 PM SCHOOL EXAMINER [facility] 01/10/2022 10:4 5 AM SCHOOL EXAMINER Abiodun Segura II, MD LABORATORY Final R esult Performing Organization Address City/[facility] Co de Phone Number [facility] [address] [place] [address], [place] [phone] documented in this encounter Visit Diagnoses 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
--- OUTSIDE RECORDS SUMMARY | 2024-03-02 22:26 | XMS_ITS | Encounter Summary ---
Author Organization [facility] Address [address] [place] [address]. [place], [place] [address] [place] [id number] Care Team Providers Care Class C Driver Name Role Phone Colton SILVEIRA MD, Abiodun Rushing Primary Care Provider Reason for Visit * Auth/Cert Specialty Diagnoses / Procedures Referred By Lyla chaney Referred To Contact Home Health Services / [facility] Home Care [address] [place] [address] [place] [address] Phone: tel: fax: Referral ID Status Reason Start Date Expiration Date Visits Re quested Visits Authorized [id number] 1 1 Encounter Details Date Type Department Care Team (Late st Contact Info) Description 01/03/2022 11:00 AM CAKE DECORATOR Home Care Visit [facility] Home [address] [place] [address] [place] [address] Ysabel Adams RN SN HOME VISIT Social [...] Coronavirus/COVID-19? No / Unsure 01/01/2022 7:00 PM CAKE DECORATOR documented as of this encounter Last Filed Vital Signs Vital Sign Reading Time Taken Comments Blood Pressure 112/70 01/03/2022 12:17 PM CAKE DECORATOR Pulse 88 01/03/2022 12:17 PM CAKE DECORATOR Temperature 36.2 ??C (97.1 ??F) 01/03/2022 12:[address] Respiratory Rate 18 01/03/2022 12:17 PM CAKE DECORATOR Oxygen Saturation 96% 01/03/2022 12:17 PM CAKE DECORATOR Inhaled Oxygen Concentration - - Weight - [...] st Contact Info) Description 03/14/2024 11:45 AM CAKE DECORATOR Office Visit [facility] [address] Marvin Mckeon MD [address] [facility] [address] [place] [address] 03/20/2024 11:30 AM CAKE DECORATOR Office Visit [facility] Family Medicine - [place] [address] [place] [phone] Abiodun Segura II, MD 100 [place], [place] [phone] documented as of this encounter Visit Diagnoses Not on filedocumented in this encounter Additional Health Concerns Assessment Noted Time PHQ-9 Depression Total Score: 0 03/08/19 22 9:30 AM CAKE DECORATOR documented as of this encounter Home Health Visit - Care Plan Visit Details Visit Type -SN - Home Visit Discipline -Usp Problems Problem Description Start Date Status Goals [...] related to pain medication to patient. Instruct family on administration and safe keeping of pain [...] safe care. Completed Next visit planning for SN. Skilled Assessment Risk for Injury Description: Evaluate [...] regimen Completed Home medication management reviewed with patient and caregiver. Patient and Caregiver verbalize ability to perform safe home medication [...] infection .?? Results to Dr Segura fax [phone] and IV care fax [phone]. Problem:Learning/Tea charisse Needs - IV Therapy Goal:Patient/caregiv er demonstrates ability to safely perform and/or administer IV flush Completed Obtained from PICC. Patient tolerated good. Specimen taken to [facility]. IV Administration Description: Skilled nurse and Caregiver [...] IV flush Completed Dressing change to right arm performed by SN. Old dressing removed. Well tolerated by patient.. Site chloraprep. Patted dry. Applied tegaderm + pad. Secured with Other: stat lock. See Wound Assessment form for measurements and status of wound. 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 Problem:Learning/Hansa mcqueen Needs - Diabetes Goal:Patient demonstrates adequate knowledge of diabetes monitoring and treatment. Completed Patient instructed on management of diabetes diet, foot care, administration of insulin, blood glucose monitoring, signs and symptoms of hyper/hypoglycemia and management of hyper/hypoglycemia and when to notify HH, physician, or [...] log reviewed with Patient . Patient verbalize and needs reinforcement. ability to perform maintenance of a daily log. Blood Glucose Monitoring Description: - Patient to perform blood sugar testing and record in daily log. Instruct to notify physician automatic oven operator of fasting blood sugar if <70mg/dl [...] meter as needed. QC testing done. Problem:Learning/Hansa mcqueen Needs - Diabetes Goal:Patient demonstrates adequate knowledge of diabetes monitoring and treatment. Completed pt states she hasn't been checking blood sugars since being sick. pt in agreement to start doing again since she is feeling a little better Infection Prevention Description: Instruct Patient in strategies [...] needs met without signs/symptoms of complications Completed dressing changed without difficulty, sutures remain intact. pt goes tomorrow to have them removed. pt tolerated well. Skin Integrity Description: Instruct patient in disease process, pain management, signs/symptoms of infection, nutrition to promote wound healing, and wound care/dressing. Problem:Wound Management Goal:Patient integumentary care needs met without signs/symptoms of complications Completed documented in this encounter Care Teams Class C Driver Relationship Specialty Start Date End Date Abiodun Segura II, MD [address] [place] [address] PCP - General FAMILY PRACTICE 03/09/21 documented as of this encounter
--- OUTSIDE RECORDS SUMMARY | 2024-03-02 22:26 | XMS_ITS | Encounter Summary ---
Author Organization [facility] Address [address] [place] [address]. [place] [address] [place] [address] Care Team Providers Care Procedure Analyst Name Role Phone Colton SILVEIRA MD, Abiodun Rushing Primary Care Provider Encounter Details Date Type Department Care Team (Late st Contact Info) Description 01/17/2022 3:14 PM FICTION AND NONFICTION PROSE WRITER - 01/17/2022 11:59 PM [facility] Hospital Encounter [facility] [address] [place], [place] [phone] Abiodun Segura II, MD [address] [place] [address] Discharge Disposition: Home or Self Care [...] Coronavirus/COVID-19? No / Unsure 01/10/2022 11:53 AM FICTION AND NONFICTION PROSE WRITER documented as of this encounter Functional Status [...] st Contact Info) Description 03/14/2024 11:45 AM FICTION AND NONFICTION PROSE WRITER Office Visit [facility] [address] Marvin Mckeon MD Three [facility] [address] [facility] [place], [place] [phone] 03/20/2024 11:30 AM FICTION AND NONFICTION PROSE WRITER Office Visit [facility] Medical [facility] Family Medicine - [place] 100 [place] [phone] Abiodun Segura II, MD 100 [place], [place] [phone] documented as of this encounter Procedures Procedure Name Priority Date/Time Associated Diagnosis Comments COMPREHENSIVE METABOLIC PANEL Routine 01/17/2022 12:15 PM FICTION AND NONFICTION PROSE WRITER Bullosis diabeticorum (CMS/HCC HHS/HCC) Face, neck, and scalp except eye, blister, infected C-REACTIVE PROTEIN Routine 01/17/2022 12 :15 PM FICTION AND NONFICTION PROSE WRITER Bullosis diabeticorum (CMS/HCC HHS/HCC) Face, neck, and scalp except eye, blister, infected CBC W/DIFF AUTOMATED Routine 01/17/2022 12:15 PM FICTION AND NONFICTION PROSE WRITER Bullosis diabeticorum (CMS/HCC HHS/HCC) Face, neck, and scalp except eye, blister, infected CK (CPK) Routine 01/17/2022 12:15 PM FICTION AND NONFICTION PROSE WRITER Bullosis diabeticorum (CMS/HCC HHS/HCC) Face, neck, and scalp except eye, blister, infected documented in this encounter Results * (ABNORMAL) CBC W/DIFF AUTOMATED (01/17/2022 12:15 PM FICTION AND NONFICTION PROSE WRITER) WBC 8.5 4.4 - 11.0 x10'3/uL 01/17/2022 3:25 PM FICTION AND NONFICTION PROSE WRITER [facility] RBC 3.60(L) 4.50 - 5.10 x10'6/uL 01/17/2022 3:25 PM FICTION AND NONFICTION PROSE WRITER [facility] HGB 10.9(L) 12.3 - 15.3 G/DL 01/17/2022 3:25 PM [facility] HCT 31.6(L) 35.9 - 44.6 % 01/17/2022 3:25 PM FICTION AND NONFICTION PROSE WRITER [facility] MCV 87.8 80.0 - 96.0 FL 01/17/2022 3:25 PM FICTION AND NONFICTION PROSE WRITER [facility] MCH 30.3 25.3 - 30.9 PG 01/17/2022 3:25 PM FICTION AND NONFICTION PROSE WRITER [facility] MCHC 34.5(H) 31.0 - 34.1 G/DL 01/17/2022 3:25 PM [facility] RDW 13.4 12.4 - 15.1 % 01/17/2022 3:25 PM [facility] PLT 253 151 - 353 x10'3/uL 01/17/2022 3:25 PM [facility] MPV 11.4 9.6 - 12.0 FL 01/17/2022 3:25 PM [facility] RBC MORPHOLOGY NORMAL 01/17/2022 3:25 PM [facility] PLT MORPH. NORMAL 01/17/2022 3:25 PM [facility] WBC MORPHOLOGY NORMAL 01/17/2022 3:25 PM [facility] LYMPHOCYTES % 31.9 15.8 - 45.0 % 01/17/2022 3:25 PM [facility] NEUTROPHILS % 58.6 42.1 - 71.9 % 01/17/2022 3:25 PM [facility] MONOCYTES % 5.5(L) 5.7 - 12.5 % 01/17/2022 3:25 PM [facility] EOSINOPHILS 3.1 0.0 - 5.6 % 01/17/2022 3:25 PM [facility] BASOPHILS 0.5 0.0 - 1.3 % 01/17/2022 3:25 PM [facility] ABS. NEUTROPHILS 5.00 1.40 - 6.00 x10'3/uL 01/17/2022 3:25 PM [facility] IMMATURE GRANS % 0.4 0.0 - 0.5 % 01/17/2022 3:25 PM [facility] ABS. LYMPHOCYTES 2.72 0.80 - 4.70 x10'3/uL 01/17/2022 3:25 PM [facility] 01/17/2022 12:1 5 PM FICTION AND NONFICTION PROSE WRITER Abiodun Segura II, MD LABORATORY Final R esult [facility] [address] [place] [address], [place] [phone] * (ABNORMAL) COMPREHENSIVE METABOLIC PANEL (01/17/2022 12:15 PM FICTION AND NONFICTION PROSE WRITER) GLUCOSE 145(H) 70 - 99 MG/DL 01/17/2022 3:39 PM FICTION AND NONFICTION PROSE WRITER [facility] BUN 21(H) 7 - 18 MG/DL 01/17/2022 3:39 PM [facility] CREATININE S/P/B 0.84 0.55 - 1.02 MG/DL 01/17/2022 3:39 PM [facility] SODIUM S/P/B 142 136 - 145 MMOL/L 01/17/2022 3:39 PM [facility] POTASSIUM S/P/B 3.4(L) 3.5 - 5.1 MMOL/L 01/17/2022 3:39 PM [facility] CHLORIDE S/P/B 105 100 - 108 MMOL/L 01/17/2022 3:39 PM [facility] CO2 24.7 21 - 32 MMOL/L 01/17/2022 3:39 PM [facility] CALCIUM S/P/B 8.8 8.5 - 10.1 MG/DL 01/17/2022 3:39 PM [facility] BILIRUBIN TOTAL S/P/B 0.4 0.2 - 1.2 MG/DL 01/17/2022 3:39 PM [facility] TOTAL PROTEIN S/P/B 8.2 6.4 - 8.2 G/DL 01/17/2022 3:39 PM FICTION AND NONFICTION PROSE WRITER [facility] ALBUMIN S/P/B 3.1(L) 3.4 - 5.0 G/DL 01/17/2022 3:39 PM [facility] AST 24 15 - 37 U/L 01/17/2022 3:39 PM [facility] ALT 11(L) 14 - 55 U/L 01/17/2022 3:39 PM [facility] ALKALINE PHOSPHATASE S/P/B 150(H) 50 - 136 U/L 01/17/2022 3:39 PM [facility] ANION GAP 12.3 5 - 15 MMOL/L 01/17/2022 3:39 PM [facility] BUN CREATININE RATIO 25.0 6 - 26 01/17/2022 3:39 PM [facility] A/G RATIO 0.6(L) 1.0 - 2.0 RATIO 01/17/2022 3:39 PM [facility] GFR ESTIMATE 85(L) >90 ML/MIN/1.7 3 M2 01/17/2022 3:39 PM [facility] Comment: NOTE: eGFR is not calculated for patients <18 years of age. This is an estimated GFR calculation using the new CKD EPI creatinine equation without race and so does not require a correction factor for race. This estimated GFR should not be used for calculating drug doses. 01/17/2022 12:1 5 PM FICTION AND NONFICTION PROSE WRITER us Abiodun Segura II, MD LABORATORY Final R esult [facility] [address] [place] [address], [place] [phone] * C-REACTIVE PROTEIN (01/17/2022 12:15 PM FICTION AND NONFICTION PROSE WRITER) C-REACTIVE PROTEIN 0.40 <0.9 mg/dL 01/17/2022 3:39 PM FICTION AND NONFICTION PROSE WRITER [facility] 01/17/2022 12:1 5 PM FICTION AND NONFICTION PROSE WRITER Abiodun Segura II, MD LABORATORY Final R esult Performing Organization Address City/[facility]/ZIP Co de Phone Number [facility] [address] [place] [address], [place] [phone] * CK (CPK) (01/17/2022 12:15 PM FICTION AND NONFICTION PROSE WRITER) CPK 88 26 - 192 U/L 01/17/2022 3:39 PM FICTION AND NONFICTION PROSE WRITER [facility] 01/17/2022 12:1 5 PM FICTION AND NONFICTION PROSE WRITER Abiodun Segura II, MD LABORATORY Final R esult Performing Organization Address [facility] Co de Phone Number [facility] [address] [place] [address], [place] [phone] documented in this encounter Visit Diagnoses 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[facility]) Other specified disorder of skin Face, neck, and scalp except eye, blister, infected documented in this encounter Additional Health Concerns Assessment Noted Time PHQ-9 Depression Total Score: 0 03/08/19 9:30 AM FICTION AND NONFICTION PROSE WRITER documented as of this encounter Care Teams Procedure Analyst Relationship Specialty Start Date End Date Abiodun Segura II, MD [address] [place] [phone] PCP - General FAMILY PRACTICE 03/09/21 documented as of this encounter
--- OUTSIDE RECORDS SUMMARY | 2024-03-02 22:26 | XMS_ITS | Encounter Summary ---
Author Organization [facility] Address [address] [place] [address]. [place] [address] [place] [address] Care Team Providers Care Director Of Conservation Name Role Phone Colton SILVEIRA MD, Abiodun Rushing Primary Care Provider Reason for Visit * Reason Onset Date Comments Information 01/02/2022 Encounter Details Date Type Department Care Team (Late st Contact Info) Description 01/02/2022 Telephone [facility] Family Medicine [place] [address] [place] [address] Abiodun Segura II, MD [address] [place] [address] Information Social History Tobacco Use [...] Coronavirus/COVID-19? No / Unsure 01/01/2022 7:00 PM [employer]BESTOS CLOTH INSPECTOR documented as of this encounter Functional Status [...] Progress Notes * Sydney Cobos MA - 01/02/2022 10:34 AM CST Please advise or speak with patient STOS CLOTH INSPECTOR * Debra Cruz - 01/02/2022 10:12 AM CST Patient is calling because she has a pick line in left arm and its been bothering her. Hospital suggested that it could be a blood clog from right arm. X-rays are everything was done at [facility]. Patient says she has been nausea, and feeling dizziness and weakness. Wants to know if can give her a call rosita. Patient is at [facility] for ultrasound. Patient requested a message to be left if not answered. Patient also wants to know if there is any medications she can be giving for pick line. STOS CLOTH INSPECTOR documented in this encounter Plan of Treatment Upcoming Encounters Date Type Department Care Team (Late st Contact Info) Description 03/14/2024 11:45 AM ASBESTOS CLOTH INSPECTOR Office Visit [facility] [phone] Marvin Mckeon MD [address] [place] [address] 03/20/2024 11:30 AM ASBESTOS CLOTH INSPECTOR Office Visit [facility] Family Medicine - [place] [address] [place] [id number] Abiodun Segura II, MD [address] [place] [address] documented as of this encounter Visit Diagnoses Not on filedocumented in this encounter Additional Health Concerns Assessment Noted Time PHQ-9 Depression Total Score: 0 03/08/19 9:30 AM ASBESTOS CLOTH INSPECTOR documented as of this encounter Care Teams Director Of Conservation Relationship Specialty Start Date End Date Abiodun Segura II, MD [address] [place] [address] PCP - General FAMILY PRACTICE 03/09/21 documented as of this encounter
--- OUTSIDE RECORDS SUMMARY | 2024-03-02 22:26 | XMS_ITS | Encounter Summary ---
Author Organization [facility] Address [address] [place] [address]. [place] [address] [place] [address] Care Team Providers Care Sprayer Leather Name Role Phone Colton SILVEIRA MD, Yasmin Rushing Primary Care Provider Reason for Visit * Reason Comments Back Pain Medical Problem Encounter Details Date Type Department Care Team (Late st Contact Info) Description 01/08/2022 5:52 PM COMMISSIONED POLICE OFFICER - 01/08/2022 8:36 PM [facility] Emergency [facility] Emergency Room [place], [place] [id number] Lex Mancilla PA [address] [place], [place] [id number] Back Pain; Medical Problem (/) Discharge Disposition: Home or Self Care (Routine [...] Coronavirus/COVID-19? No / Unsure 01/08/2022 5:16 PM COMMISSIONED POLICE OFFICER documented as of this encounter Last Filed Vital Signs Vital Sign Reading Time Taken Comments Blood Pressure 113/76 01/08/2022 6:39 PM COMMISSIONED POLICE OFFICER Pulse 101 01/08/2022 6:39 PM COMMISSIONED POLICE OFFICER Temperature 37.4 ??C (99.3 ??F) 01/08/2022 5:27 PM CS T Respiratory Rate 18 01/08/2022 5:27 PM COMMISSIONED POLICE OFFICER Oxygen Saturation 100% 01/08/2022 6:39 PM COMMISSIONED POLICE OFFICER Inhaled Oxygen Concentration - - Weight 83.5 kg (184 lb) 01/08/2022 5:27 PM COMMISSIONED POLICE OFFICER Height 167.6 cm (5' 6 ) 01/08/2022 5:27 PM COMMISSIONED POLICE OFFICER Body Mass Index 29.7 01/08/2022 5:27 PM COMMISSIONED POLICE OFFICER documented in this encounter Functional Status * [...] Qureshi RN Active documented in this encounter Discharge Instructions * Discharge Instructions* CYNTHIA Garsia - 01/08/2022 8:15 PM COMMISSIONED POLICE OFFICER Take tylenol for pain. Or you can take ultram as needed; do not drink alcohol or drive while using this medicine. Follow up at 830am (arrive at 8am) for ultrasound appointment. Drink plenty of fluids. You can also try something like theraflu. ISSIONED POLICE OFFICER * Attachments The following attachments cannot be sent through Care Everywhere. * Viral Syndrome Discharge Instructions (Rwandan) documented in this encounter Medications at Time [...] 09/04/19 23 documented as of this encounter ED Notes * Willa Garrison RN - 01/08/2022 8:33 PM CST Provider discussed today's findings with the patient/family. The patient has been given informationregarding their treatment, follow up and concerning symptoms for which they should seek urgent or emergent attention. I have expressed the the importance of seeking attention should there be any new,or worsening symptoms or persistence of their condition. Patient verbalized understanding of the discharge instructions. ISSIONED POLICE OFFICER * CYNTHIA Garsia - 01/08/2022 6:29 PM CST [place], [place] EMERGENCY DEPARTMENT ENCOUNTER HISTORICAL INFORMATION Primary Care Doctor: YASMIN SEGURA MD Patient information was obtained primarily from the patient, nursing notes History/Exam limitations: None Provider at Bedside Date/Time Event User Comments 01/08/22 7498 Provider at Bedside Assessing Patient ANABELA GAY -- CHIEF COMPLAINT Back Pain and Medical Problem (/) HPI Lena Youngblood is a 51-year-old female who presents with multiple complaints. Pt has right arm PICC line in place (placed on 12/23) for right foot infection (osteomyletitis with charcot foot). Pt states she has been having right arm pain since having PICC adjusted. Pt states with last visit (01/01) only one of the ports is working but her family is still able to give IV abx (daptomycin and cefepime). Pt also c/o several days of generalized fatigue, nausea, body aches and dizziness. Pt denies know sick contacts. PAST MEDICAL HISTORY Past Medical History: Diagnosis Date ??? Arthritis ??? Charcot foot due to diabetes mellitus (CMS/HCC) LEFT FOOT ??? Constipation ??? COVID-19 ??? Diabetes mellitus (CMS/HCC) ??? Diabetic neuropathy (CMS/HCC) ??? High cholesterol ??? Hypertension ??? 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 UTI (urinary tract infection) ??? Vision decreased blind right eye, poor vision left eye Negative unless otherwise noted SURGICAL HISTORY Past Surgical History: Procedure Laterality Date ??? 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 BLADDER SURGERY ??? EYE SURGERY ??? HYSTERECTOMY 2004, 2019 hysterectomy, cervical surgery ??? RETINAL DETACHMENT SURGERY Right Negative unless otherwise noted CURRENT MEDICATIONS Current Facility-Administered Medications: ??? enoxaparin (LOVENOX) 80 mg/0.8 mL syringe 80 mg, 1 mg/kg, Subcutaneous, Once, CYNTHIA Garsia Current Outpatient Medications: ??? acidophilus (FLORAJEN) capsule, Take 1 capsule by mouth 2 (two) times daily., Disp: 60 capsule,Rfl: 0 ??? amLODIPine 10 MG tablet, Take 1 tablet (10 mg total) by mouth daily. (Patient taking differently: Take 10 mg by mouth nightly.), Disp: 90 tablet, Rfl: 3 ??? ceFEPIme 2 g in sodium chloride 0.9 % SOLN 100 mL, Inject 2 g into the vein every 8 (eight) hours for 38 days., Disp: 100 mL, Rfl: 38 ??? cyclobenzaprine 10 MG tablet, Take 1 tablet (10 mg total) by mouth 3 (three) times daily as needed., Disp: 15 tablet, Rfl: 0 ??? DAPTOmycin 450 mg in sodium chloride 0.9 % SOLN 100 mL, Inject 450 mg into the vein daily for 37 days., Disp: 100 mL, Rfl: 37 ??? Dulaglutide (TRULICITY) 3 MG/0.5ML Solution Pen-injector, Inject 3 mg into the skin weekly. Fridays, Disp: 6 mL, Rfl: 3 ??? Heparin Sodium, Porcine, (HEPARIN SODIUM FLUSH IV), 5 mLs by IVP route daily. Indications: IV patency, Disp: , Rfl: ??? HYDROcodone-acetaminophen (NORCO) 5-325 MG tablet, Take 1 tablet by mouth every 6 (six) hours as needed. Indications: Acute Pain < 7 Day Supply, Disp: 28 tablet, Rfl: 0 ??? hydrocortisone (HYTONE) 2.5 % ointment, Apply 1 Application topically daily as needed. Indications: Rash Apply to face, Disp: , Rfl: ??? hydrOXYzine (ATARAX) 25 MG tablet, Take 25-50 mg by mouth nightly at bedtime. Indications: Burning Feeling and Itching, Disp: , Rfl: ??? insulin lispro protamine-insulin lispro (HUMALOG MIX 75/25) (75-25) 100 UNIT/ML Suspension, Inject 55 Units into the skin every evening., Disp: , Rfl: ??? insulin lispro protamine-insulin lispro (HUMALOG MIX 75/25) (75-25) 100 UNIT/ML Suspension, Inject 65 Units into the skin every morning., Disp: , Rfl: ??? linaCLOtide 145 MCG capsule, Take 1 capsule (145 mcg total) by mouth every morning before breakfast. Take on empty stomach at least 30 minutes prior to the first meal of the day. Swallow whole. Do not open capsule or chew. (Patient taking differently: Take 145 mcg by mouth daily as needed. Takeon empty stomach at least 30 minutes prior to the first meal of the day. Swallow whole. Do not opencapsule or chew.), Disp: 30 capsule, Rfl: 5 ??? lisinopril (PRINIVIL) 40 MG tablet, Take 1 tablet by mouth once daily, Disp: 90 tablet, Rfl: 3 ??? omeprazole 40 MG capsule, Take 1 capsule (40 mg total) by mouth in the morning. (Patient takingdifferently: Take 40 mg by mouth daily as needed.), Disp: 30 capsule, Rfl: 1 ??? ondansetron 4 MG disintegrating tablet, Take 1 tablet (4 mg total) by mouth every 8 (eight) hours as needed for Nausea., Disp: 20 tablet, Rfl: 0 ??? simvastatin (ZOCOR) 40 MG tablet, TAKE 1 TABLET BY MOUTH AT BEDTIME (Patient taking differently: Take 40 mg by mouth nightly at bedtime.), Disp: 90 tablet, Rfl: 3 ??? Sodium Chloride Flush (SALINE FLUSH IV), 10 mLs by IVP route daily. Indications: IV patency, Disp: , Rfl: ALLERGIES Allergies Allergen Reactions ??? Fish Oil Unknown ??? Amoxicillin Rash ??? Penicillins Rash FAMILY HISTORY Family History Problem Relation Name Age of Onset ??? Diabetes Mother ??? Hypertension Mother ??? Heart Attack Father ??? Hypertension Father ??? Stroke Sister ??? Hypertension Sister ??? Breast Cancer Other cousin 49 Negative unless otherwise noted SOCIAL HISTORY Social History Socioeconomic History ??? Marital status: Tobacco Use ??? Smoking status: Never ??? Smokeless tobacco: Never Vaping Use ??? Vaping Use: Never used Substance and Sexual Activity ??? Alcohol use: Yes Comment: Rarely ??? Drug use: No Other Topics Concern ??? Caffeine Concern No ??? Exercise No ??? Seat Belt Yes Social History Narrative lives with and HHC. Negative unless otherwise noted REVIEW OF SYSTEMS Review of Systems Constitutional: Positive for fatigue. Negative for fever. Musculoskeletal: Positive for arthralgias. All other systems reviewed and negative PHYSICAL EXAM VITAL SIGNS: Filed Vitals: 01/08/22 1727 01/08/22 1839 BP: 109/77 113/76 Pulse: 107 101 Resp: 18 Temp: 99.3 ??F (37.4 ??C) TempSrc: Temporal SpO2: 98% 100% Weight: 83.5 kg (184 lb) Height: 5' 6 (1.676 m) Constitutional: Well developed, Well nourished, No acute distress, Non-toxic appearance. HENT: Normocephalic, Atraumatic, Bilateral external ears normal, Oropharynx moist, No oral exudates, Nose normal. Eyes: PERRL, EOMI, Conjunctiva normal, No discharge. Neck- Normal range of motion, No tenderness, Supple, No stridor. Respiratory: Normal breath sounds, No respiratory distress. Cardiovascular: Normal heart rate, Normal rhythm, no chest wall tenderness GI: Bowel sounds normal, Soft, No tenderness, No masses, No pulsatile masses. Musculoskeletal: Intact distal pulses, No edema, No tenderness, No cyanosis, No clubbing. Good range of motion in all major joints. No tenderness to palpation or major deformities noted. Back- No tenderness. Integument: mild ttp of right arm. No erythema or edema, Warm, Dry, No erythema, No rash. Lymphatic: No lymphadenopathy noted. Neurologic: Alert & oriented x 3, Normal motor function, Normal sensory function, No focal deficits noted. Psychiatric: Affect normal, Judgment normal, Mood normal. Pulse Oximetry Interpretation Saturation: 98% Oxygen Delivery: room air Interpretation: normal Pertinent Labs: Results for orders placed or performed during the hospital encounter of 01/08/22 CBC W/DIFF AUTOMATED Result Value Ref Range WBC 7.6 4.5 - 11.0 x10'3/uL RBC 3.86 (L) 4.20 - 5.40 x10'6/uL HGB 11.6 (L) 12.0 - 16.0 G/DL HCT 34.7 (L) 38.0 - 48.0 % MCV 89.9 81.0 - 99.0 FL MCH 30.1 27.0 - 31.0 PG MCHC 33.4 32.0 - 36.0 G/DL RDW 13.3 11.5 - 14.5 % PLT 222 130 - 400 x10'3/uL MPV 11.3 9.3 - 12.2 FL DIFFERENTIAL TYPE AUTOMATED DIFFERENTIAL NEUTROPHILS 69.3 % LYMPHOCYTES 16.9 % MONOCYTES 9.6 % EOSINOPHILS 3.0 % BASOPHILS 0.9 % IMMATURE GRANS 0.3 % ABS. NEUTROPHILS TOTAL 5.25 1.80 - 7.70 x10'3/uL ABS. LYMPHOCYTES 1.28 1.00 - 4.80 x10'3/uL ABS. MONOCYTES 0.73 0.24 - 0.86 x10'3/uL ABS. EOSINOPHILS 0.23 0.04 - 0.36 x10'3/uL ABS. BASOPHILS 0.07 0.01 - 0.08 x10'3/uL ABS. IMMATURE GRANULOCYTES 0.02 0.00 - 0.49 x10'3/uL COMPREHENSIVE METABOLIC PANEL Result Value Ref Range GLUCOSE 180 (H) 70 - 99 MG/DL BUN 22 (H) 7 - 18 MG/DL CREATININE S/P/B 1.18 (H) 0.55 - 1.02 MG/DL SODIUM 134 (L) 136 - 145 MMOL/L POTASSIUM 3.8 3.5 - 5.1 MMOL/L CHLORIDE S/P/B 105 100 - 108 MMOL/L CO2 23.2 21 - 32 MMOL/L CALCIUM 9.5 8.5 - 10.1 MG/DL BILIRUBIN TOTAL S/P/B 0.3 0.2 - 1.2 MG/DL TOTAL PROTEIN S/P/B 8.8 (H) 6.4 - 8.2 G/DL ALBUMIN S/P/B 3.3 (L) 3.4 - 5.0 G/DL AST 33 15 - 37 U/L ALT 50 14 - 55 U/L ALKALINE PHOSPHATASE S/P/B 215 (H) 50 - 136 U/L ANION GAP 5.8 5 - 15 MMOL/L BUN CREATININE RATIO 18.6 6 - 26 A/G RATIO 0.6 (L) 1.0 - 2.0 RATIO GFR ESTIMATE 56 (L) >90 ML/MIN/1.73 M2 LACTIC ACID Result Value Ref Range LACTIC ACID 0.9 0.4 - 2.0 MMOL/L D-DIMER, QUANTITATIVE Result Value Ref Range D-DIMER 1,291 (HH) 0 - 500 ng[FEU]/mL PROTIME/INR, VENOUS Result Value Ref Range Protime 14.2 (H) 10.2 - 12.9 SEC INR 1.2 TROPONIN, QUANT Result Value Ref Range TROPONIN I HIGH SENSITIVITY 6 <54 ng/L URINALYSIS WI REFLEX TO CULTURE Specimen: URINE, CLEAN CATCH Result Value Ref Range Specimen Type URINE CLEAN CATCH COLOR (U) LIGHT YELLOW TRANSPARENCY CLEAR Specific [place]iel (U) 1.016 1.001 - 1.030 U PH 5.5 5.0 - 9.0 LEUKOCYTE ESTERASE NEGATIVE NEGATIVE NITRITES NEGATIVE NEGATIVE PROTEIN (U) 100 (H) <30 MG/DL URINE GLUCOSE NORMAL NORMAL MG/DL U KETONES TRACE (A) NEGATIVE MG/DL UROBILINOGEN NORMAL NORMAL MG/DL BILIRUBIN (U) NEGATIVE NEGATIVE MG/DL BLOOD 1+ (A) NEGATIVE CULTURE & SENSITIVITY INDICATED? CULTURE IS NOT INDICATED WBC/HPF 1 <6 /HPF RBC/HPF 4 <6 /HPF SQUAMOUS EPITHELIALS MODERATE /HPF CORONAVIRUS (COVID-19) INFLUENZA A & B ANTIGEN IA PANEL Specimen: NASAL Result Value Ref Range CORONAVIRUS ANTIGEN IA NEGATIVE NEGATIVE INFLUENZA A NEGATIVE NEGATIVE INFLUENZA B NEGATIVE NEGATIVE Specimen Type NASAL FIRST TEST UNKNOWN EMPLOYED IN HEALTHCARE NO SYMPTOMATIC DEFINED BY CDC UNKNOWN HOSPITALIZATION STATUS UNKNOWN RESIDENT OF [facility] NO UNKNOWN RADIOLOGY XR CHEST PORTABLE Final Result by User, [id number] (01/08 1807) Examination: Chest 1 view portable History: Pain DATE/TIME: 01/08/2022 5:36 PM Comparison: January 02, 2020 Technique: AP portable view of the chest was obtained. Findings: Right PICC tip at the SVC. No pulmonary consolidation, pleural effusion or pneumothorax. Heart size, mediastinal contours and pulmonary vasculature are within normal limits. No acute osseous abnormality identified. Impression: Stable chest. No acute findings. Referred By: Interpreted By: Arley Gastelum MD, 01/08/2022 6:05 PM MEDS GIVEN IN ER: Medications enoxaparin (LOVENOX) 80 mg/0.8 mL syringe 80 mg (has no administration in time range) sodium chloride 0.9% bolus infusion 500 mL (500 mLs Intravenous New Bag 01/08/221832) ondansetron (ZOFRAN) injection 4 mg (4 mg Intravenous Given 01/08/221833) HYDROcodone-acetaminophen (NORCO) 5-325 MG tablet 1 tablet (1 tablet Oral Given 01/08/221836) ED COURSE & MEDICAL DECISION MAKING Pertinent Labs & Imaging studies reviewed. (See chart for details) ED Course as of 01/08/222006 Sun Jan 08, 20221835 Pt presents with viral like symptoms with also right arm pain -arm of picc line. Pt apparentlyhas been having issue with that arm (seen about a week ago and had neg workup including CTA). No evidence of infection on exam but will check bloodwork including d-dimer as well as check for covid/flu. Pt ok with plan. [MP] 1956 Workup including covid/flu and lactic and UA neg. D-dimer is elevated (again). Pt had US of right arm last week with similar pain. Discussed with pt probable viral illness. I understand that picc line hurts but it is still working(flushes) and she is to continued IV abx. Although my suspicion is low I did suggest we lovenox before DC and setup for US of RUE. Pt ok with plan. [MP] 2004 Outpatient US setup for 830am tomorrow (Sunday). Will Rx some prn ultram as well and discussedrest and hydration as well. [MP] 2004 [place] lovenox given in ER [MP] ED Course User Index [MP] CYNTHIA Garsia DATE: 01/08/2022 8:06 PM PATIENT: Lena Youngblood Discharge Clinical Impressions: Right arm pain Viral illness Discharge Condition: stable Discharge Disposition: Patient discharge to home with I spent time answering the patient's questions. Discharge instructions using teach back, understanding assessed and validated. 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 to the exit press writer discharge instructions for details surrounding the discharge plan. I did reiterate with the patient that if an urgent need for immediate follow up comes up, not to hesitate to return to the ED. CYNTHIA Garsia PA 01/08/222006 Cosigned by Americo Elder MD,PHD at 01/10/2022 11:45 PM COMMISSIONED POLICE OFFICER ISSIONED POLICE OFFICER ISSIONED POLICE OFFICER * Anabela Gay APRN - 01/08/2022 5:31 PM CST [place], [place] EMERGENCY DEPARTMENT ENCOUNTER Medical Screening Examination 01/08/22 5:32 PM Chief Complaint : Back Pain and Medical Problem (/) HPI : Lena Youngblood is a 51-year-old female who presents to the ED today for evaluation of piccline problem on the right which she has for a foot infection. 2 days ago started having dizziness, body aches, nausea, just feels ill. States the picc is clogged and is painful. Vital Signs: Filed Vitals: 01/08/22 1727 BP: 109/77 Pulse: 107 Resp: 18 Temp: 99.3 ??F (37.4 ??C) TempSrc: Temporal SpO2: 98% Weight: 83.5 kg (184 lb) Height: 5' 6 (1.676 m) Physical exam: A brief physical exam was completed to facilitate/expedite patient care. [place] findings include: alert, stable Plan: Plan: Necessary labs/imaging/medications ordered to initiate pt care. Anabela Gay APRN, dictated portions of this note using [facility] speech recognition software. Occasional wrong word or sound-alike substitutions may have occurred due to the inherent limitations of voice recognition software. Please read carefully and recognize, using context, where the substitutions may have occurred. Anabela Gay APRN 01/08/22 173 Cosigned by Sanchez Vasquez MD at 01/08/2022 6:05 PM COMMISSIONED POLICE OFFICER ISSIONED POLICE OFFICER ISSIONED POLICE OFFICER * Rich Cota RN - 01/08/2022 5:26 PM CST Pt here with back pain, chills, dizzy x 2 days. States she has a picc line in her right arm that is blocked up for right foot infection. ISSIONED POLICE OFFICER documented in this encounter Plan of Treatment Upcoming Encounters Date Type Department Care Team (Late st Contact Info) Description 03/14/2024 11:45 AM COMMISSIONED POLICE OFFICER Office Visit [facility] [phone] Marvin Mckeon MD [facility] [address] [place] [phone] 03/20/2024 11:30 AM COMMISSIONED POLICE OFFICER Office Visit [facility] - [place] [address] [place] [phone] Yasmin Segura II, MD [address] [place], [place] [phone] documented as of this encounter Procedures Procedure Name Priority Date/Time Associated Diagnosis Comments PROTHROMBIN TIME, VENOUS STAT 01/08/2022 6:45 PM COMMISSIONED POLICE OFFICER COMPREHENSIVE METABOLIC PANEL STAT 01/08/2022 6:45 PM COMMISSIONED POLICE OFFICER LACTIC ACID TIMED 01/08/2022 6:45 PM COMMISSIONED POLICE OFFICER D-DIMER, QUANTITATIVE STAT 01/08/2022 6:45 PM COMMISSIONED POLICE OFFICER CULTURE, BACTERIA, BLOOD STAT 01/08/2022 6:45 PM COMMISSIONED POLICE OFFICER CULTURE, BACTERIA, BLOOD STAT 01/08/2022 6:45 PM COMMISSIONED POLICE OFFICER CBC W/DIFF AUTOMATED STAT 01/08/2022 6:45 PM COMMISSIONED POLICE OFFICER TROPONIN, QUANT STAT 01/08/2022 6:45 PM COMMISSIONED POLICE OFFICER CORONAVIRUS (COVID-19) INFLUENZA A & B ANTIGEN IA PANEL STAT 01/08/2022 6:32 PM COMMISSIONED POLICE OFFICER URINALYSIS WI REFLEX TO CULTURE STAT 01/08/2022 6:32 PM COMMISSIONED POLICE OFFICER ECG 12-LEAD Routine 01/08/2022 6:02 PM COMMISSIONED POLICE OFFICER XR CHEST PORTABLE STAT 01/08/2022 5:5 6 PM COMMISSIONED POLICE OFFICER documented in this encounter Results * TROPONIN, QUANT (01/08/2022 6:45 PM COMMISSIONED POLICE OFFICER) [facility] TROPONIN I HIGH SENSITIVITY 6 <54 ng/L 01/08/2022 7:22 PM COMMISSIONED POLICE OFFICER [facility] Comment: HIGH DOSES OF BIOTIN, TROPONIN-SPECIFIC AUTOANTIBODIES, AND ANTIBODY THERAPY CONTAINING HAMA MAY INTERFERE WITH THIS TEST RESULT. CORRELATION TO CLINICAL HISTORY AND PRESENTATION RECOMMENDED. 01/08/2022 6:45 PM COMMISSIONED POLICE OFFICER us Anabela Gay APRN LABORATORY Final Result [facility] [address] [place] [address], [place] [phone] * CULTURE, BACTERIA, BLOOD (01/08/2022 6:45 PM COMMISSIONED POLICE OFFICER) SPEC DESCRIPTION BLOOD 01/08/2022 5:34 PM COMMISSIONED POLICE OFFICER [facility] SPECIAL REQUESTS NO SPECIAL REQUEST 01/08/2022 5:34 PM COMMISSIONED POLICE OFFICER [facility] CULTURE RESULT NO GROWTH 5 DAYS 01/13/2022 12:52 PM COMMISSIONED POLICE OFFICER [facility] BLOOD SPECIMEN OBTAINED FOR BLOOD CULTURE / Unknown 01/08/2022 6:45 PM COMMISSIONED POLICE OFFICER 01/08/2022 6:51 PM COMMISSIONED POLICE OFFICER us Anabela A [place] TORPEDO SPECIALIST MICROBIOLOGY - GENERAL ORDERA BLES Final Result Performing Organization Address City/[facility]/ZIP Co de Phone Number [facility] [address] [place] [address], [place] [phone] * CULTURE, BACTERIA, BLOOD (01/08/2022 6:45 PM COMMISSIONED POLICE OFFICER) [facility] SPEC DESCRIPTION BLOOD 01/08/2022 5:34 PM COMMISSIONED POLICE OFFICER [facility] SPECIAL REQUESTS NO SPECIAL REQUEST 01/08/2022 5:34 PM COMMISSIONED POLICE OFFICER [facility] CULTURE RESULT NO GROWTH 5 DAYS 01/13/2022 12:52 PM COMMISSIONED POLICE OFFICER [facility] BLOOD SPECIMEN OBTAINED FOR BLOOD CULTURE / Unknown 01/08/2022 6:45 PM COMMISSIONED POLICE OFFICER 01/08/2022 6:51 PM COMMISSIONED POLICE OFFICER us Anabela A [place] TORPED[employer] SPECIALIST MICROBIOLOGY - GENERAL ORDERA BLES Final Result [facility] [address] [place] [address], [place] [phone] * LACTIC ACID (01/08/2022 6:45 PM COMMISSIONED POLICE OFFICER) [facility] LACTIC ACID VENOUS 0.9 0.4 - 2.0 MMOL/L 01/08/2022 7:29 PM COMMISSIONED POLICE OFFICER [facility] 01/08/2022 6:45 PM COMMISSIONED POLICE OFFICER Anabela Gay TORPEDO SPECIALIST LABORATORY Final Result Performing Organization Address [facility] de Phone Number [facility] [address] [place] [phone], * (ABNORMAL) PROTIME/INR, VENOUS (01/08/2022 6:45 PM COMMISSIONED POLICE OFFICER) PROTIME 14.2(H) 10.2 - 12.9 SEC 01/08/2022 7:30 PM COMMISSIONED POLICE OFFICER [facility] INR 1.2 01/08/2022 7:30 PM COMMISSIONED POLICE OFFICER [facility] Comment: Recommended INR Therapeutic Goals: ??2.0-3.0 Routine Therapy ??2.5-3.5 Mechanical Prosthetic Valves (High Risk) 01/08/2022 6:45 PM COMMISSIONED POLICE OFFICER Anabela Gay APRN LABORATORY Final Result Performing Organization Address [facility] de Phone Number [facility] [address] [place] [phone], * (ABNORMAL) D-DIMER, QUANTITATIVE (01/08/2022 6:45 PM COMMISSIONED POLICE OFFICER) D-DIMER 1,291(HH) 0 - 500 ng{FEU}/mL 01/08/2022 7:30 PM COMMISSIONED POLICE OFFICER [facility] Comment: D-Dimer values less than or equal to 500 ng/mL FEU have a negative predictive value of >95% for exclusion of deep vein thrombosis and pulmonary embolism. In patients over 50 (who tend to have higher normal baseline D-Dimer values), recent studies suggest age-adjusted D-Dimer cutoff values (calculated as: age [years] x 10 ng/mL) result in equivalent outcomes and no additional false negative findings. Successful Call: DDIMR called 01/08/2022 07:31 PM to EMERGENCY ROOM ([id number]/[place] R[place]DLE) by [id number]. Read Back: Yes 01/08/2022 6:45 PM COMMISSIONED POLICE OFFICER Anabela Gay TORPEDO SPECIALIST LABORATORY Final Result [facility] [address] [place] [address], [place] [phone] * (ABNORMAL) COMPREHENSIVE METABOLIC PANEL (01/08/2022 6:45 PM COMMISSIONED POLICE OFFICER) GLUCOSE 180(H) 70 - 99 MG/DL 01/08/2022 7:22 PM [facility] BUN 22(H) 7 - 18 MG/DL 01/08/2022 7:22 PM [facility] CREATININE S/P/B 1.18(H) 0.55 - 1.02 MG/DL 01/08/2022 7:22 PM [facility] SODIUM S/P/B 134(L) 136 - 145 MMOL/L 01/08/2022 7:22 PM [facility] POTASSIUM S/P/B 3.8 3.5 - 5.1 MMOL/L 01/08/2022 7:22 PM [facility] CHLORIDE S/P/B 105 100 - 108 MMOL/L 01/08/2022 7:22 PM [facility] CO2 23.2 21 - 32 MMOL/L 01/08/2022 7:22 PM [facility] CALCIUM S/P/B 9.5 8.5 - 10.1 MG/DL 01/08/2022 7:22 PM [facility] BILIRUBIN TOTAL S/P/B 0.3 0.2 - 1.2 MG/DL 01/08/2022 7:22 PM [facility] Comment: THIS ASSAY IS NOT RECOMMENDED FOR PATIENTS UNDERGOING TREATMENT WITH ELTROMBOPAG DUE TO THE POTENTIAL FOR FALSELY ELEVATED RESULTS. TOTAL PROTEIN S/P/B 8.8(H) 6.4 - 8.2 G/DL 01/08/2022 7:22 PM [facility] ALBUMIN S/P/B 3.3(L) 3.4 - 5.0 G/DL 01/08/2022 7:22 PM [facility] AST 33 15 - 37 U/L 01/08/2022 7:22 PM [facility] ALT 50 14 - 55 U/L 01/08/2022 7:22 PM [facility] ALKALINE PHOSPHATASE S/P/B 215(H) 50 - 136 U/L 01/08/2022 7:22 PM [facility] ANION GAP 5.8 5 - 15 MMOL/L 01/08/2022 7:22 PM [facility] BUN CREATININE RATIO 18.6 6 - 26 01/08/2022 7:22 PM [facility] A/G RATIO 0.6(L) 1.0 - 2.0 RATIO 01/08/2022 7:22 PM [facility] GFR ESTIMATE 56(L) >90 ML/MIN/1.7 3 M2 01/08/2022 7:22 PM [facility] Comment: NOTE: eGFR is not calculated for patients <18 years of age. This is an estimated GFR calculation using the new CKD EPI creatinine equation without race and so does not require a correction factor for race. This estimated GFR should not be used for calculating drug doses. 01/08/2022 6:45 PM COMMISSIONED POLICE OFFICER Anabela Gay [facility] SPECIALIST LABORATORY Final Result [facility] [address] [place] [address], * (ABNORMAL) CBC W/DIFF AUTOMATED (01/08/2022 6:45 PM COMMISSIONED POLICE OFFICER) [facility] Signature WBC 7.6 4.5 - 11.0 x10'3/uL 01/08/2022 6:58 PM COMMISSIONED POLICE OFFICER [facility] RBC 3.86(L) 4.20 - 5.40 x10'6/uL 01/08/2022 6:58 PM COMMISSIONED POLICE OFFICER [facility] HGB 11.6(L) 12.0 - 16.0 G/DL 01/08/2022 6:58 PM COMMISSIONED POLICE OFFICER [facility] HCT 34.7(L) 38.0 - 48.0 % 01/08/2022 6:58 PM COMMISSIONED POLICE OFFICER [facility] MCV 89.9 81.0 - 99.0 FL 01/08/2022 6:58 PM COMMISSIONED POLICE OFFICER [facility] MCH 30.1 27.0 - 31.0 PG 01/08/2022 6:58 PM COMMISSIONED POLICE OFFICER [facility] MCHC 33.4 32.0 - 36.0 G/DL 01/08/2022 6:58 PM COMMISSIONED POLICE OFFICER [facility] RDW 13.3 11.5 - 14.5 % 01/08/2022 6:58 PM COMMISSIONED POLICE OFFICER [facility] PLT 222 130 - 400 x10'3/uL 01/08/2022 6:58 PM COMMISSIONED POLICE OFFICER [facility] MPV 11.3 9.3 - 12.2 FL 01/08/2022 6:58 PM COMMISSIONED POLICE OFFICER [facility] DIFFERENTIAL TYPE AUTOMATED DIFFERENTIAL 01/08/2022 6:58 PM COMMISSIONED POLICE OFFICER [facility] NEUTROPHILS % 69.3 % 01/08/2022 6:58 PM COMMISSIONED POLICE OFFICER [facility] LYMPHOCYTES % 16.9 % 01/08/2022 6:58 PM COMMISSIONED POLICE OFFICER [facility] MONOCYTES % 9.6 % 01/08/2022 6:58 PM COMMISSIONED POLICE OFFICER [facility] EOSINOPHILS 3.0 % 01/08/2022 6:58 PM COMMISSIONED POLICE OFFICER [facility] BASOPHILS 0.9 % 01/08/2022 6:58 PM COMMISSIONED POLICE OFFICER [facility] IMMATURE GRANS % 0.3 % 01/09/20 6:58 PM COMMISSIONED POLICE OFFICER [facility] ABS. NEUTROPHILS TOTAL 5.25 1.80 - 7.70 x10'3/uL 01/08/2022 6:58 PM COMMISSIONED POLICE OFFICER [facility] ABS. LYMPHOCYTES 1.28 1.00 - 4.80 x10'3/uL 01/08/2022 6:58 PM COMMISSIONED POLICE OFFICER [facility] ABS. MONOCYTES 0.73 0.24 - 0.86 x10'3/uL 01/08/2022 6:58 PM COMMISSIONED POLICE OFFICER [facility] ABS. EOSINOPHILS 0.23 0.04 - 0.36 x10'3/uL 01/08/2022 6:58 PM COMMISSIONED POLICE OFFICER [facility] ABS. BASOPHILS 0.07 0.01 - 0.08 x10'3/uL 01/08/2022 6:58 PM COMMISSIONED POLICE OFFICER [facility] ABS. IMMATURE GRANULOCYTES 0.02 0.00 - 0.49 x10'3/uL 01/08/2022 6:58 PM COMMISSIONED POLICE OFFICER [facility] 01/08/2022 6:45 PM COMMISSIONED POLICE OFFICER us Anabela Gay [facility] Final Result [facility] [address] [place] [address], [place] [phone] * (ABNORMAL) URINALYSIS WI REFLEX TO CULTURE (01/08/2022 6:32 PM COMMISSIONED POLICE OFFICER) SPECIMEN TYPE URINE CLEAN CATCH 01/08/2022 6:32 PM COMMISSIONED POLICE OFFICER [facility] COLOR (U) LIGHT YELLOW 01/08/2022 6:49 PM [facility] TRANSPARENCY CLEAR 01/08/2022 6:49 PM [facility] SPECIFIC GRAVITY (U) 1.016 1.001 - 1.030 01/08/2022 6:49 PM COMMISSIONED POLICE OFFICER [facility] U PH 5.5 5.0 - 9.0 01/08/2022 6:49 PM [facility] LEUKOCYTES (U) NEGATIVE NEGATIVE 01/08/2022 6:49 PM [facility] NITRITES NEGATIVE NEGATIVE 01/08/2022 6:49 PM [facility] PROTEIN (U) 100(H) <30 MG/DL 01/08/2022 6:49 PM [facility] URINE GLUCOSE NORMAL NORMAL MG/DL 01/08/2022 6:49 PM [facility] KETONES MG/DL (U) TRACE(A) NEGATIVE MG/DL 01/08/2022 6:49 PM [facility] UROBILINOGEN NORMAL NORMAL MG/DL 01/08/2022 6:49 PM [facility] BILIRUBIN (U) NEGATIVE NEGATIVE MG/DL 01/08/2022 6:49 PM [facility] BLOOD (U) 1+(A) NEGATIVE 01/08/2022 6:49 PM [facility] CULTURE & SENSITIVITY INDICATED? CULTURE IS NOT INDICATED 01/08/2022 6:49 PM COMMISSIONED POLICE OFFICER [facility] WBC/HPF 1 <6 /HPF 01/08/2022 6:49 PM COMMISSIONED POLICE OFFICER [facility] RBC/HPF 4 <6 /HPF 01/08/2022 6:49 PM COMMISSIONED POLICE OFFICER [facility] SQUAMOUS EPITHELIALS MODERATE /HPF 01/08/2022 6:49 PM COMMISSIONED POLICE OFFICER [facility] URINE SPECIMEN OBTAINED BY CLEAN CATCH PROCEDURE / Unknown 01/08/2022 6:32 PM COMMISSIONED POLICE OFFICER us Lex MARIE URINE ORDERABLES Final Res ult [facility] [address] [place] [address], [place] [phone] * CORONAVIRUS (COVID-19) INFLUENZA A & B ANTIGEN IA PANEL (01/08/2022 6:32 PM COMMISSIONED POLICE OFFICER) CORONAVIRUS ANTIGEN IA NEGATIVE NEGATIVE 01/08/2022 6:50 PM COMMISSIONED POLICE OFFICER [facility] Comment: NEGATIVE RESULTS SHOULD BE TREATED PRESUMPTIVE AND CONFIRMED WITH A MOLECULAR ASSAY IF NECESSARY FOR PATIENT MANAGEMENT. NEGATIVE RESULTS DO NOT RULE OUT COVID 19 AND SHOULD NOT BE USED THE SOLE BASIS FOR TREATMENT OR PATIENT MANAGEMENT DECISIONS, INCLUDING INFECTION CONTROL DECISIONS. NEGATIVE RESULTS SHOULD BE CONSIDERED IN THE CONTEXT OF A PATIENT'S RECENT EXPOSURES, HISTORY AND THE PRESENCE OF CLINICAL SIGNS AND SYMPTOMS CONSISTENT WITH COVID 19. THIS TEST HAS BEEN AUTHORIZED BY THE FDA UNDER AN EMERGENCY USE AUTHORIZATION (EUA) FOR USE BY AUTHORIZED LABORATORIES. INFLUENZA A NEGATIVE NEGATIVE 01/08/2022 6:50 PM COMMISSIONED POLICE OFFICER [facility] INFLUENZA B NEGATIVE NEGATIVE 01/08/2022 6:50 PM COMMISSIONED POLICE OFFICER [facility] Comment: Interpretation: Negative for Influenza A and B. A negative result does not exclude influenza virus infection. If influenza is circulating in your community, a diagnosis of influenza should be considered based on a patient's clinical presentation and empiric antiviral treatment should be considered, if indicated. If more conclusive testing is needed for hospitalized inpatients, follow-up confirmatory testing with RT-PCR requires a separate order. SPECIMEN TYPE NASAL 01/08/2022 6:32 PM COMMISSIONED POLICE OFFICER [facility] FIRST TEST UNKNOWN 01/08/2022 6:32 PM COMMISSIONED POLICE OFFICER [facility] EMPLOYED IN HEALTHCARE NO 01/08/2022 6:32 PM COMMISSIONED POLICE OFFICER [facility] SYMPTOMATIC DEFINED BY CDC UNKNOWN 01/08/2022 6:32 PM COMMISSIONED POLICE OFFICER [facility] HOSPITALIZATION STATUS UNKNOWN 01/08/2022 6:32 PM COMMISSIONED POLICE OFFICER [facility] RESIDENT OF COMM[facility]ITY [facility] NO 01/08/2022 6:32 PM COMMISSIONED POLICE OFFICER [facility] UNKNOWN 01/08/2022 6:32 PM COMMISSIONED POLICE OFFICER [facility] NASAL STRUCTURE / Unknown 01/08/2022 6:32 PM COMMISSIONED POLICE OFFICER Anabela Chatmanyor TORPEDO SPECIALIST MICROBIOLOGY - GENERAL ORDERA BLES Final Result [facility] [address] [place] [address], * ECG 12 lead (01/08/2022 6:02 PM COMMISSIONED POLICE OFFICER) 01/08/2022 6:02 PM COMMISSIONED POLICE OFFICER Narrative [facility] EBONI (ABENA) RAD - 01/08/2022 10:36 PM COMMISSIONED POLICE OFFICER ?[facility] ? [address] [place] ? Test Date: ?2022-01-08 Pat Name: ? LENA YOUNGBLOOD ?Department: ?? 41 ? Room: ? 4 Gender: ? Female ? 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 KM : ?1970 ? Requested By: ANABELA GAY Order Number: [id number] ? Reading MD: ?? Crispin Gomez ? Measurements Intervals ?Tamms ? Rate: ? 103 ?P: ?47 MO: ? 160 ?QRS: ?21 QRSD: ? 76 ? T: ?115 QT: ? 309 ? QTc: ?406 ? Interpretive Statements SINUS TACHYCARDIA NONSPECIFIC T-WAVE ABNORMALITY Compared to ECG 01/01/2022 22:59:42 Sinus tachycardia is present Ventricular premature complex(es) no longer present T-wave abnormality still present Other ischemic changes, not STEMI Lex Mancilla PA-C ISSIONED POLICE OFFICER Procedure Note Crispin Gomez MD - 01/08/[address] 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: ADOLFO : 1970 Requested By: ANABELA GAY Order Number: [id number] Reading MD: Crispin Gomez Measurements Intervals Tamms Rate: 103 P: 47 MO: 160 QRS: 21 QRSD: 76 T: 115 QT: 309 QTc: 406 Interpretive Statements SINUS TACHYCARDIA NONSPECIFIC T-WAVE ABNORMALITY Compared to ECG 01/01/2022 22:59:42 Sinus tachycardia is present Ventricular premature complex(es) no longer present T-wave abnormality still present Other ischemic changes, not STEMI Lex Mancilla PA-C ISSIONED POLICE OFFICER us Anabela Gay TORPEDO SPECIALIST ECG ORDERABLES Final Result [facility] RAD * XR CHEST PORTABLE (01/08/2022 5:56 PM COMMISSIONED POLICE OFFICER) Anatomical Region Laterality Modality Chest Radiographic Shelli ging 01/08/2022 6:05 PM COMMISSIONED POLICE OFFICER Impressions 01/08/2022 6:06 PM COMMISSIONED POLICE OFFICER Impression: Stable chest. ??No acute findings. Referred By: ?? Interpreted By: Arley Gastelum MD, 01/08/2022 6:05 PM Narrative 01/08/2022 6:06 PM COMMISSIONED POLICE OFFICER Examination: Chest 1 view portable History: Pain DATE/TIME: 01/08/2022 5:36 PM Comparison: January 02, 2020 Technique: AP portable view of the chest was obtained. Findings: Right PICC tip at the SVC. ??No pulmonary consolidation, pleural effusion or pneumothorax. ??Heart size, mediastinal contours and pulmonary vasculature are within normal limits. ??No acute osseous abnormality identified. Procedure Note Arley Gastelum MD - 01/08/2022 Examination: Chest 1 view portable History: Pain DATE/TIME: 01/08/2022 5:36 PM Comparison: January 02, 2020 Technique: AP portable view of the chest was obtained. Findings: Right PICC tip at the SVC. No pulmonary consolidation, pleuraleffusion or pneumothorax. Heart size, mediastinal contours and pulmonaryvasculature are within normal limits. No acute osseous abnormalityidentified. Impression: Stable chest. No acute findings. Referred By: Interpreted By: Arley Gastelum MD, 01/08/2022 6:05 PM Anabela Gay [facility] Final Result documented in this encounter Visit Diagnoses Diagnosis Viral illness- Primary Unspecified viral infection, in conditions classified elsewhere and of unspecified site Arm pain Pain in limb documented in this encounter Administered Medications Inactive Administered Medications - up to 3 most recent administrations Medication Order MAR Action Action Date Dose Rate Site enoxaparin (LOVENOX) 80 mg/0.8 mL syringe 80 mg 80 mg (rounded from 83.5 mg = 1 mg/kg ? 83.5 kg), Subcutaneous, Once, 1 dose, On 01/08/22 at 2015, Administer by deep SubQ injection alternating between the left or right anterolateral and left or right posterolateral abdominal wall. Given 01/08/2022 8:30 PM COMMISSIONED POLICE OFFICER 80 mg Left Upper Abdomen HYDROcodone-acetaminophen (NORCO) 5-325 MG tablet 1 tablet 1 tablet, Oral, Once, 1 dose, On 01/08/22 at 1815, Maximum dose of acetaminophen is 4000 mg from all sources in 24 hours. Given 01/08/2022 6:37 PM COMMISSIONED POLICE OFFICER 1 tablet ondansetron (ZOFRAN) injection 4 mg 4 mg, Intravenous, Once, 1 dose, On 01/08/22 at 1745, IV push over 2-5 minutes. Given 01/08/2022 6:34 PM COMMISSIONED POLICE OFFICER 4 mg sodium chloride 0.9% bolus infusion 500 mL 500 mL, Intravenous, Administer over 60 Minutes, Once, 1 dose, On 01/08/22 at 1745 New Bag 01/08/2022 6:33 PM COMMISSIONED POLICE OFFICER 500 mLs documented in this encounter Active and Recently Administered Medications Times are shown in COMMISSIONED POLICE OFFICER. Scheduled Medication Order 01/06/2022 01/07/2022 01/08/2022 enoxaparin (LOVENOX) 80 mg/0.8 mL syringe 80 mg (COMPLETED) 80 mg (rounded from 83.5 mg = 1 mg/kg ? 83.5 kg), Subcutaneous, Once, 1 dose, On 01/08/22 at 2015, Administer by deep SubQ injection alternating between the left or right anterolateral and left or right posterolateral abdominal wall. 2029 (Given - Provid er: Willa Garrison RN) HYDROcodone-acetaminophen (NORCO) 5-325 MG tablet 1 tablet (COMPLETED) 1 tablet, Oral, Once, 1 dose, On 01/08/22 at 1815, Maximum dose of acetaminophen is 4000 mg from all sources in 24 hours. 1836 (Given - Provid er: Mirta Ozuna RN) ondansetron (ZOFRAN) injection 4 mg (COMPLETED) 4 mg, Intravenous, Once, 1 dose, On 01/08/22 at 1745, IV push over 2-5 minutes. 1833 (Given - Provid er: Mirta Ozuna RN) sodium chloride 0.9% bolus infusion 500 mL (COMPLETED) 500 mL, Intravenous, Administer over 60 Minutes, Once, 1 dose, On 01/08/22 at 1745 1832 (New Bag - Prov ider: Mirta Ozuna RN)2021 (Infusion Stop Time - Provider: Willa Garrison RN) documented in this encounter Additional Health Concerns Infection Onset Date Last Indicated Resolved Time COVID-19 Rule Out 01/08/2022 01/08/2022 01/08/2022 6:50 PM COMMISSIONED POLICE OFFICER Assessment Noted Time PHQ-9 Depression Total Score: 0 03/08/19 9:30 AM COMMISSIONED POLICE OFFICER documented as of this encounter Care Teams Sprayer Leather Relationship Specialty Start Date End Date Yasmin Segura II, MD [address] [place] [address] PCP - General FAMILY PRACTICE 03/09/21 documented as of this encounter
--- OUTSIDE RECORDS SUMMARY | 2024-03-02 22:26 | XMS_ITS | Encounter Summary ---
Author Organization [facility] Address [address] [place] [address]. [place] [address] [place] [address] Care Team Providers Care Sales Enablement Consultant Name Role Phone Colton SILVEIRA MD, Abiodun Rushing Primary Care Provider Reason for Visit * Reason Onset Date Comments Advice 02/01/2022 Encounter Details Date Type Department Care Team (Late st Contact Info) Description 02/01/2022 Telephone [facility] Family [facility] [place] [address] [place] [address] Abiodun Segura II, MD [address] [place] [address] Advice Social History Tobacco Use [...] Coronavirus/COVID-19? No / Unsure 01/10/2022 11:53 AM ROLL FORMING MACHINE OPERATOR documented as of this encounter Functional [...] Progress Notes * Sydney Cobos MA - 02/02/2022 8:30 AM CST Arelis was informed okay to stop antibiotics and remove pik line FORMING MACHINE OPERATOR * Sydney Cobos MA - 02/01/2022 3:18 PM CST [facility] wants to know if patient can be taken off of IV antibiotics as scheduled/planned for tomorrow [phone] FORMING MACHINE OPERATOR * Debra Cruz - 02/01/2022 1:17 PM CST Called in wanting to know if the patient is discontinued from IV'a FORMING MACHINE OPERATOR documented in this encounter Plan of Treatment Upcoming Encounters Date Type Department Care Team (Late st Contact Info) Description 03/14/2024 11:45 AM ROLL FORMING MACHINE OPERATOR Office Visit [facility] [phone] Marvin Mckeon MD [address] [place] [address] 03/20/2024 11:30 AM ROLL FORMING MACHINE OPERATOR Office Visit [facility] Family Medicine - [place] [address] [place] [phone] Abiodun Segura II, MD [address] [place] [address] documented as of this encounter Visit Diagnoses Not on filedocumented in this encounter Additional Health Concerns Assessment Noted Time PHQ-9 Depression Total Score: 0 03/08/19 9:30 AM ROLL FORMING MACHINE OPERATOR documented as of this encounter Care Teams Sales Enablement Consultant Relationship Specialty Start Date End Date Abiodun Segura II, MD [address] [place] [id number] PCP - General FAMILY PRACTICE 03/09/21 documented as of this encounter
--- OUTSIDE RECORDS SUMMARY | 2024-03-02 22:26 | XMS_ITS | Encounter Summary ---
Author Organization [facility] Address [address] [place] [address]. [place], [place] [address] [place] [address] Care Team Providers Care Computer Numeric Control Setter Name Role Phone Colton SILVEIRA MD, Abiodun Rushing Primary Care Provider Reason for Visit * Reason Comments Lab (SCAN) Encounter Details Date Type Department Care Team (Latest Contact Info) Description 01/17/2022 Scan HEALTH INFO SRVCS Scanned, Doc Med [...] Coronavirus/COVID-19? No / Unsure 01/10/2022 11:53 AM ROD WELDER documented as of this encounter Functional Status [...] st Contact Info) Description 03/14/2024 11:45 AM ROD WELDER Office Visit [facility] [phone] Marvin Mckeon MD [address] [facility] [address] [place] [address] 03/20/2024 11:30 AM ROD WELDER Office Visit [facility] Family Medicine - [place] [address] [place] [phone] Abiodun Segura II, MD [address] [place], [place] [address] documented as of this encounter Procedures Procedure Name Priority Date/Time Associated Diagnosis Comments OUTSIDE LAB (SCAN ORDER) 01/17/2022 documented in this encounter Results * OUTSIDE LAB (SCAN) (01/17/2022) 01/17/2022 us Doc Med Group Scanned SCANNING Final Resu lt documented in this encounter Visit Diagnoses Not on filedocumented in this encounter Additional Health Concerns Assessment Noted Time PHQ-9 Depression Total Score: 0 03/08/19 9:30 AM ROD WELDER documented as of this encounter Care Teams Computer Numeric Control Setter Relationship Specialty Start Date End Date Abiodun Segura II, MD [address] [place] [id number] PCP - General FAMILY PRACTICE 03/09/21 documented as of this encounter
--- OUTSIDE RECORDS SUMMARY | 2024-03-02 22:26 | XMS_ITS | Encounter Summary ---
Author Organization [facility] Address [address] [place] [address]. [place] [address] [place] [address] Care Team Providers Care Electrical Engineer Name Role Phone Colton SILVEIRA MD, Abiodun Rushing Primary Care Provider Encounter Details Date Type Department Care Team (Late st Contact Info) Description 01/24/2022 Orders Only [facility] [address] [place], [place] [phone] Abiodun Segura II, MD [address] [place] [phone] Social History Tobacco Use Types Packs/Day [...] Coronavirus/COVID-19? No / Unsure 01/10/2022 11:53 AM CONTACT MANAGER documented as of this encounter Functional [...] Contact Info) Description 03/14/2024 11:45 AM CONTACT MANAGER Office Visit [facility] [phone] Marvin Mckeon MD [facility] [address] [place] [address] 03/20/2024 11:30 AM CONTACT MANAGER Office Visit [facility] - [place] [address] [place] [phone] Abiodun Segura II, MD [address] [place] [address] documented as of this encounter Results * CK (CPK) (01/24/2022 12:30 PM CONTACT MANAGER) CPK 183 26 - 192 U/L 01/24/2022 3:[address] [facility] 01/24/2022 12:3 0 PM CONTACT MANAGER Abiodun Segura II, MD LABORATORY Final R esrust Performing Organization Address [facility]/ZIP Co de Phone Number [facility] [address] [place] [address], [place] [phone] * C-REACTIVE PROTEIN (01/24/2022 12:30 PM CONTACT MANAGER) C-REACTIVE PROTEIN 0.50 <0.9 mg/dL 01/24/2022 3:[address] [facility] 01/24/2022 12:3 0 PM CONTACT MANAGER Abiodun Segura II, MD LABORATORY Final R esrust Performing Organization Address City/[facility]/ZIP Co de Phone Number [facility] [address] [place] [address], [place] [phone] * (ABNORMAL) CBC W/DIFF AUTOMATED (01/24/2022 12:30 PM CONTACT MANAGER) WBC 8.1 4.4 - 11.0 x10'3/uL 01/24/2022 3:[address] [facility] RBC 3.50(L) 4.50 - 5.10 x10'6/uL 01/24/2022 3:[address] [facility] HGB 10.7(L) 12.3 - 15.3 G/DL 01/24/2022 3:[address] [facility] HCT 31.7(L) 35.9 - 44.6 % 01/24/2022 3:32 PM [facility] MCV 90.6 80.0 - 96.0 FL 01/24/2022 3:32 PM [facility] MCH 30.6 25.3 - 30.9 PG 01/24/2022 3:32 PM [facility] MCHC 33.8 31.0 - 34.1 G/DL 01/24/2022 3:32 PM [facility] RDW 14.0 12.4 - 15.1 % 01/24/2022 3:32 PM [facility] PLT 228 151 - 353 x10'3/uL 01/24/2022 3:32 PM [facility] MPV 11.8 9.6 - 12.0 FL 01/24/2022 3:32 PM [facility] RBC MORPHOLOGY NORMAL 01/24/2022 3:32 PM [facility] PLT MORPH. NORMAL 01/24/2022 3:32 PM [facility] WBC MORPHOLOGY NORMAL 01/24/2022 3:32 PM [facility] LYMPHOCYTES % 25.9 15.8 - 45.0 % 01/24/2022 3:32 PM [facility] NEUTROPHILS % 63.4 42.1 - 71.9 % 01/24/2022 3:32 PM [facility] MONOCYTES % 5.7 5.7 - 12.5 % 01/24/2022 3:32 PM [facility] EOSINOPHILS 4.1 0.0 - 5.6 % 01/24/2022 3:32 PM [facility] BASOPHILS 0.7 0.0 - 1.3 % 01/24/2022 3:32 PM [facility] ABS. NEUTROPHILS 5.11 1.40 - 6.00 x10'3/uL 01/24/2022 3:[address] [facility] IMMATURE GRANS % 0.2 0.0 - 0.5 % 01/24/2022 3:[address] [facility] ABS. LYMPHOCYTES 2.09 0.80 - 4.70 x10'3/uL 01/24/2022 3:[address] [facility] 01/24/2022 12:3 0 PM CONTACT MANAGER Abiodun Segura II, MD LABORATORY Final R esult [facility] [address] [place] [address], [place] [phone] * (ABNORMAL) COMPREHENSIVE METABOLIC PANEL (01/24/2022 12:30 PM CONTACT MANAGER) GLUCOSE 264(H) 70 - 99 MG/DL 01/24/2022 3:[address] [facility] BUN 17 7 - 18 MG/DL 01/24/2022 3:59 PM [facility] CREATININE S/P/B 0.96 0.55 - 1.02 MG/DL 01/24/2022 3:59 PM [facility] SODIUM S/P/B 141 136 - 145 MMOL/L 01/24/2022 3:59 PM [facility] POTASSIUM S/P/B 3.4(L) 3.5 - 5.1 MMOL/L 01/24/2022 3:59 PM [facility] CHLORIDE S/P/B 103 100 - 108 MMOL/L 01/24/2022 3:59 PM [facility] CO2 24.4 21 - 32 MMOL/L 01/24/2022 3:59 PM [facility] CALCIUM S/P/B 8.3(L) 8.5 - 10.1 MG/DL 01/24/2022 3:59 PM [facility] BILIRUBIN TOTAL S/P/B 0.4 0.2 - 1.2 MG/DL 01/24/2022 3:59 PM [facility] TOTAL PROTEIN S/P/B 7.9 6.4 - 8.2 G/DL 01/24/2022 3:59 PM [facility] ALBUMIN S/P/B 3.0(L) 3.4 - 5.0 G/DL 01/24/2022 3:59 PM [facility] AST 29 15 - 37 U/L 01/24/2022 3:59 PM [facility] ALT 37 14 - 55 U/L 01/24/2022 3:59 PM [facility] ALKALINE PHOSPHATASE S/P/B 149(H) 50 - 136 U/L 01/24/2022 3:59 PM [facility] ANION GAP 13.6 5 - 15 MMOL/L 01/24/2022 3:59 PM [facility] BUN CREATININE RATIO 17.7 6 - 26 01/24/2022 3:59 PM [facility] A/G RATIO 0.6(L) 1.0 - 2.0 RATIO 01/24/2022 3:59 PM [facility] GFR ESTIMATE 72(L) >90 ML/MIN/1.7 3 M2 01/24/2022 3:59 PM [facility] Comment: NOTE: eGFR is not calculated for patients <18 years of age. This is an estimated GFR calculation using the new CKD EPI creatinine equation without race and so does not require a correction factor for race. This estimated GFR should not be used for calculating drug doses. 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
--- OUTSIDE RECORDS SUMMARY | 2024-03-02 22:26 | XMS_ITS | Encounter Summary ---
Author Organization [facility] Address [address] [place] [address]. [place] [address] [place] [address] Care Team Providers Care Manager Harbor Name Role Phone Colton SILVEIRA MD, Abiodun Rushing Primary Care Provider Encounter Details Date Type Department Care Team (Late st Contact Info) Description 01/31/2022 2:19 PM FRAME RUNNER - 01/31/2022 11:59 PM [facility] Hospital Encounter [facility] [address] [place], [place] [id number] Abiodun Segura II, MD [address] [place] [address] Discharge Disposition: Home or Self Care [...] Coronavirus/COVID-19? No / Unsure 01/10/2022 11:53 AM FRAME RUNNER documented as of this encounter Functional Status [...] 09/04/19 23 documented as of this encounter Progress Notes * Abiodun Segura II, MD - 01/31/2022 2:19 PM CST Patient called with results. All values explained. We will repeat CRP next week for trend and will consider early re-imaging if elevated at that time. E RUNNER documented in this encounter Plan of Treatment Upcoming Encounters Date Type Department Care Team (Late st Contact Info) Description 03/14/2024 11:45 AM FRAME RUNNER Office Visit [facility] [phone] Marvin Mckeon MD [facility] [address] [place] [address] 03/20/2024 11:30 AM FRAME RUNNER Office Visit [facility] Family Medicine - [place] [address] [place] [phone] Abiodun Segura II, MD [address] [place] [address] documented as of this encounter Procedures Procedure Name Priority Date/Time Associated Diagnosis Comments COMPREHENSIVE METABOLIC PANEL Routine 01/31/2022 11:30 AM FRAME RUNNER Bullosis diabeticorum (CMS/HCC HHS/HCC) Face, neck, and scalp except eye, blister, infected C-REACTIVE PROTEIN Routine 01/31/2022 11 :30 AM FRAME RUNNER Bullosis diabeticorum (CMS/HCC HHS/HCC) Face, neck, and scalp except eye, blister, infected CBC W/DIFF AUTOMATED Routine 01/31/2022 11:30 AM FRAME RUNNER Bullosis diabeticorum (CMS/HCC HHS/HCC) Face, neck, and scalp except eye, blister, infected CK (CPK) Routine 01/31/2022 11:30 AM FRAME RUNNER Bullosis diabeticorum (CMS/HCC HHS/HCC) Face, neck, and scalp except eye, blister, infected documented in this encounter Results * (ABNORMAL) COMPREHENSIVE METABOLIC PANEL (01/31/2022 11:30 AM FRAME RUNNER) GLUCOSE 96 70 - 99 MG/DL 01/31/2022 2:50 PM [facility] BUN 18 7 - 18 MG/DL 01/31/2022 2:50 PM [facility] CREATININE S/P/B 0.81 0.55 - 1.02 MG/DL 01/31/2022 2:50 PM [facility] SODIUM S/P/B 143 136 - 145 MMOL/L 01/31/2022 2:50 PM [facility] POTASSIUM S/P/B 3.1(L) 3.5 - 5.1 MMOL/L 01/31/2022 2:50 PM [facility] CHLORIDE S/P/B 103 100 - 108 MMOL/L 01/31/2022 2:50 PM [facility] CO2 34.3(H) 21 - 32 MMOL/L 01/31/2022 2:50 PM [facility] CALCIUM S/P/B 9.4 8.5 - 10.1 MG/DL 01/31/2022 2:50 PM [facility] BILIRUBIN TOTAL S/P/B 0.6 0.2 - 1.2 MG/DL 01/31/2022 2:50 PM [facility] TOTAL PROTEIN S/P/B 8.3(H) 6.4 - 8.2 G/DL 01/31/2022 2:50 PM [facility] ALBUMIN S/P/B 3.2(L) 3.4 - 5.0 G/DL 01/31/2022 2:50 PM [facility] AST 25 15 - 37 U/L 01/31/2022 2:50 PM [facility] ALT 34 14 - 55 U/L 01/31/2022 2:50 PM [facility] ALKALINE PHOSPHATASE S/P/B 150(H) 50 - 136 U/L 01/31/2022 2:50 PM [facility] ANION GAP 5.7 5 - 15 MMOL/L 01/31/2022 2:50 PM [facility] BUN CREATININE RATIO 22.2 6 - 26 01/31/2022 2:50 PM [facility] A/G RATIO 0.6(L) 1.0 - 2.0 RATIO 01/31/2022 2:50 PM [facility] GFR ESTIMATE 88(L) >90 ML/MIN/1.7 3 M2 01/31/2022 2:50 PM [facility] Comment: NOTE: eGFR is not calculated for patients <18 years of age. This is an estimated GFR calculation using the new CKD EPI creatinine equation without race and so does not require a correction factor for race. This estimated GFR should not be used for calculating drug doses. 01/31/2022 11:3 0 AM FRAME RUNNER Abiodun Segura II, MD LABORATORY Final R esult [facility] [address] [place] [address], [place] [phone] * (ABNORMAL) CBC W/DIFF AUTOMATED (01/31/2022 11:30 AM FRAME RUNNER) WBC 7.6 4.4 - 11.0 x10'3/uL 01/31/2022 2:28 PM [facility] RBC 3.65(L) 4.50 - 5.10 x10'6/uL 01/31/2022 2:28 PM [facility] HGB 11.0(L) 12.3 - 15.3 G/DL 01/31/2022 2:28 PM [facility] HCT 32.8(L) 35.9 - 44.6 % 01/31/2022 2:28 PM [facility] MCV 89.9 80.0 - 96.0 FL 01/31/2022 2:28 PM [facility] MCH 30.1 25.3 - 30.9 PG 01/31/2022 2:28 PM [facility] MCHC 33.5 31.0 - 34.1 G/DL 01/31/2022 2:28 PM [facility] RDW 13.7 12.4 - 15.1 % 01/31/2022 2:28 PM [facility] PLT 224 151 - 353 x10'3/uL 01/31/2022 2:28 PM [facility] MPV 11.6 9.6 - 12.0 FL 01/31/2022 2:28 PM [facility] RBC MORPHOLOGY NORMAL 01/31/2022 2:28 PM [facility] PLT MORPH. NORMAL 01/31/2022 2:28 PM [facility] WBC MORPHOLOGY NORMAL 01/31/2022 2:28 PM [facility] LYMPHOCYTES % 27.6 15.8 - 45.0 % 01/31/2022 2:28 PM [facility] NEUTROPHILS % 63.7 42.1 - 71.9 % 01/31/2022 2:28 PM [facility] MONOCYTES % 5.4(L) 5.7 - 12.5 % 01/31/2022 2:28 PM [facility] EOSINOPHILS 2.2 0.0 - 5.6 % 01/31/2022 2:28 PM [facility] BASOPHILS 0.8 0.0 - 1.3 % 01/31/2022 2:28 PM [facility] ABS. NEUTROPHILS 4.87 1.40 - 6.00 x10'3/uL 01/31/2022 2:28 PM [facility] IMMATURE GRANS % 0.3 0.0 - 0.5 % 01/31/2022 2:28 PM [facility] ABS. LYMPHOCYTES 2.11 0.80 - 4.70 x10'3/uL 01/31/2022 2:28 PM [facility] 01/31/2022 11:3 0 AM FRAME RUNNER us Abiodun Segura II, MD LABORATORY Final R esult Performing Organization Address [facility] Co de Phone Number [facility] [address] [place] [address], [place] [phone] * CK (CPK) (01/31/2022 11:30 AM FRAME RUNNER) CPK 169 26 - 192 U/L 01/31/2022 2:50 PM FRAME RUNNER [facility] 01/31/2022 11:3 0 AM FRAME RUNNER Abiodun Segura II, MD LABORATORY Final R esult Performing Organization Address [facility] Co de Phone Number [facility] [address] [place] [address], [place] [phone] * (ABNORMAL) C-REACTIVE PROTEIN (01/31/2022 11:30 AM FRAME RUNNER) C-REACTIVE PROTEIN 2.10(H) <0.9 mg/dL 01/31/2022 2:50 PM FRAME RUNNER [facility] 01/31/2022 11:3 0 AM FRAME RUNNER Abiodun Segura II, MD LABORATORY Final R esult Performing Organization Address City/[facility] Co de Phone Number [facility] [address] [place] [address], [place] [phone] documented in this encounter Visit Diagnoses 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[facility]) Other specified disorder of skin Face, neck, and scalp except eye, blister, infected documented in this encounter Additional Health Concerns Assessment Noted Time PHQ-9 Depression Total Score: 0 03/08/19 22 9:30 AM FRAME RUNNER documented as of this encounter Care Teams Manager Harbor Relationship Specialty Start Date End Date Abiodun Segura II, MD [address] [place] [address] PCP - General FAMILY PRACTICE 03/09/21 documented as of this encounter
--- OUTSIDE RECORDS SUMMARY | 2024-03-02 22:26 | XMS_ITS | Encounter Summary ---
Author Organization [facility] Address [address] [place] [address]. [place], [place] [id number] [place] [address] Care Team Providers Care Head Of Art Name Role Phone Colton SILVEIRA MD, Abiodun Rushing Primary Care Provider Reason for Visit * Auth/Cert Specialty Diagnoses / Procedures Referred By Lyla chaney Referred To Contact Home Health Services / [facility] Home Care [address] [place] [address] [place] [address] Phone: tel: fax: Referral ID Status Reason Start Date Expiration Date Visits Re quested Visits Authorized [id number] 1 1 Encounter Details Date Type Department Care Team (Late st Contact Info) Description 01/10/2022 11:00 AM INVENTORY TAKER Home Care Visit [facility] Home [address] [place] [address] [place] [address] Ysabel Adams RN SN HOME VISIT Social [...] Coronavirus/COVID-19? No / Unsure 01/10/2022 11:53 AM INVENTORY TAKER documented as of this encounter Last Filed Vital Signs Vital Sign Reading Time Taken Comments Blood Pressure 110/60 01/10/2022 10:17 AM INVENTORY TAKER Pulse 80 01/10/2022 10:17 AM INVENTORY TAKER Temperature 36.6 ??C (97.8 ??F) 01/10/2022 10:[address] Respiratory Rate 18 01/10/2022 10:17 AM INVENTORY TAKER Oxygen Saturation 100% 01/10/2022 10:17 AM INVENTORY TAKER Inhaled Oxygen Concentration - - Weight - [...] st Contact Info) Description 03/14/2024 11:45 AM INVENTORY TAKER Office Visit [facility] [address] Marvin Mckeon MD [facility] [address] [place] [address] 03/20/2024 11:30 AM INVENTORY TAKER Office Visit [facility] Group Family Medicine - [place] [address] [place] [phone] Abiodun Segura II, MD [address] [place], [place] [phone] documented as of this encounter Visit Diagnoses Not on filedocumented in this encounter Additional Health Concerns Assessment Noted Time PHQ-9 Depression Total Score: 0 03/08/19 22 9:30 AM INVENTORY TAKER documented as of this encounter Home Health [...] 12/27/2021 Active 1 goal linked to scheduled/documen orck intervention 6 goal interventions scheduled/documen rock in [...] infection .?? Results to Dr Segura fax [phone] and IV care fax [phone]. Problem:Learning/Te aching Needs - IV Therapy Goal:Patient/caregi britney demonstrates ability to safely perform and/or administer IV flush Completed Obtained from left ac. Patient tolerated fair. Specimen taken to [facility]. IV Administration Description: Skilled nurse and Caregiver [...] removed. Well tolerated by patient.. cleansed with choloraprep, Secured with Other: stat lock and tegaderm. Wound Assessment form for measurements and status [...] in daily log. Instruct to notify physician bindery worker of fasting blood sugar if <70mg/dl or [...] without signs/symptoms of complications Completed with variance Defer to next visit pt's independent in wound care. Skin Integrity Description: Instruct patient in disease process, pain management, signs/symptoms of infection, nutrition to promote wound healing, and wound care/dressing. Problem:Wound Management Goal:Patient integumentary care needs met without signs/symptoms of complications Completed documented in this encounter Care Teams Head Of Art Relationship Specialty Start Date End Date Abiodun Segura II, MD [address] [place] [id number] PCP - General FAMILY PRACTICE 03/09/21 documented as of this encounter
--- OUTSIDE RECORDS SUMMARY | 2024-03-02 22:26 | XMS_ITS | Encounter Summary ---
Author Organization [facility] Address [address] [place] [address]. [place] [address] [place] [address] Care Team Providers Care Pediatrician Active Practice Name Role Phone Colton SILVEIRA MD, Abiodun Rushing Primary Care Provider Encounter Details Date Type Department Care Team (Late st Contact Info) Description 01/24/2022 3:14 PM SLOT MACHINE KEY PERSON - 01/24/2022 11:59 PM [facility] Hospital Encounter [facility] [address] [place], [place] [phone] Abiodun Segura II, MD [address] [place] [address] Discharge Disposition: Home or Self Care [...] Coronavirus/COVID-19? No / Unsure 01/10/2022 11:53 AM SLOT MACHINE KEY PERSON documented as of this encounter Functional Status [...] st Contact Info) Description 03/14/2024 11:45 AM SLOT MACHINE KEY PERSON Office Visit [facility] [phone] Marvin Mckeon MD Three [facility] [place], [place] [phone] 03/20/2024 11:30 AM SLOT MACHINE KEY PERSON Office Visit [facility] Family Medicine - [place] [address] [place] [phone] Abiodun Segura II, MD 100 [place], [place] [phone] documented as of this encounter Procedures Procedure Name Priority Date/Time Associated Diagnosis Comments COMPREHENSIVE METABOLIC PANEL Routine 01/24/2022 12:30 PM SLOT MACHINE KEY PERSON Bullosis diabeticorum (CMS/HCC HHS/HCC) Face, neck, and scalp except eye, blister, infected C-REACTIVE PROTEIN Routine 01/24/2022 12 :30 PM SLOT MACHINE KEY PERSON Bullosis diabeticorum (CMS/HCC HHS/HCC) Face, neck, and scalp except eye, blister, infected CBC W/DIFF AUTOMATED Routine 01/24/2022 12:30 PM SLOT MACHINE KEY PERSON Bullosis diabeticorum (CMS/HCC HHS/HCC) Face, neck, and scalp except eye, blister, infected CK (CPK) Routine 01/24/2022 12:30 PM SLOT MACHINE KEY PERSON Bullosis diabeticorum (CMS/[facility] HHS/HCC) Face, neck, and scalp except eye, blister, infected documented in this encounter Results * (ABNORMAL) COMPREHENSIVE METABOLIC PANEL (01/24/2022 12:30 PM SLOT MACHINE KEY PERSON) Pathologist [facility] GLUCOSE 264(H) 70 - 99 MG/DL 01/24/2022 3:[address] [facility] BUN 17 7 - 18 MG/DL 01/24/2022 3:[address] [facility] CREATININE S/P/B 0.96 0.55 - 1.02 MG/DL 01/24/2022 3:[address] [facility] SODIUM S/P/B 141 136 - 145 MMOL/L 01/24/2022 3:[address] [facility] POTASSIUM S/P/B 3.4(L) 3.5 - 5.1 MMOL/L 01/24/2022 3:[address] [facility] CHLORIDE S/P/B 103 100 - 108 MMOL/L 01/24/2022 3:[address] [facility] CO2 24.4 21 - 32 MMOL/L 01/24/2022 3:[address] [facility] CALCIUM S/P/B 8.3(L) 8.5 - 10.1 MG/DL 01/24/2022 3:[address] [facility] BILIRUBIN TOTAL S/P/B 0.4 0.2 - 1.2 MG/DL 01/24/2022 3:[address] [facility] TOTAL PROTEIN S/P/B 7.9 6.4 - 8.2 G/DL 01/24/2022 3:[address] [facility] ALBUMIN S/P/B 3.0(L) 3.4 - 5.0 G/DL 01/24/2022 3:[address] [facility] AST 29 15 - 37 U/L 01/24/2022 3:[address] [facility] ALT 37 14 - 55 U/L 01/24/2022 3:[address] [facility] ALKALINE PHOSPHATASE S/P/B 149(H) 50 - 136 U/L 01/24/2022 3:[address] [facility] ANION GAP 13.6 5 - 15 MMOL/L 01/24/2022 3:[address] [facility] BUN CREATININE RATIO 17.7 6 - 26 01/24/2022 3:[address] [facility] A/G RATIO 0.6(L) 1.0 - 2.0 RATIO 01/24/2022 3:[address] [facility] GFR ESTIMATE 72(L) >90 ML/MIN/1.7 3 M2 01/24/2022 3:[address] [facility] Comment: NOTE: eGFR is not calculated for patients <18 years of age. This is an estimated GFR calculation using the new CKD EPI creatinine equation without race and so does not require a correction factor for race. This estimated GFR should not be used for calculating drug doses. 01/24/2022 12:3 0 PM SLOT MACHINE KEY PERSON us Abiodun Segura II, MD LABORATORY Final R esult [facility] [address] [place] [address], * (ABNORMAL) CBC W/DIFF AUTOMATED (01/24/2022 12:30 PM SLOT MACHINE KEY PERSON) WBC 8.1 4.4 - 11.0 x10'3/uL 01/24/2022 3:32 PM SLOT MACHINE KEY PERSON [facility] RBC 3.50(L) 4.50 - 5.10 x10'6/uL 01/24/2022 3:[address] [facility] HGB 10.7(L) 12.3 - 15.3 G/DL 01/24/2022 3:[address] [facility] HCT 31.7(L) 35.9 - 44.6 % 01/24/2022 3:[address] [facility] MCV 90.6 80.0 - 96.0 FL 01/24/2022 3:32 PM SLOT MACHINE KEY PERSON [facility] MCH 30.6 25.3 - 30.9 PG 01/24/2022 3:32 PM SLOT MACHINE KEY PERSON [facility] MCHC 33.8 31.0 - 34.1 G/DL 01/24/2022 3:[address] [facility] RDW 14.0 12.4 - 15.1 % 01/24/2022 3:32 PM SLOT MACHINE KEY PERSON [facility] PLT 228 151 - 353 x10'3/uL 01/24/2022 3:[address] [facility] MPV 11.8 9.6 - 12.0 FL 01/24/2022 3:[address] [facility] RBC MORPHOLOGY NORMAL 01/24/2022 3:[address] [facility] PLT MORPH. NORMAL 01/24/2022 3:[address] [facility] WBC MORPHOLOGY NORMAL 01/24/2022 3:[address] [facility] LYMPHOCYTES % 25.9 15.8 - 45.0 % 01/24/2022 3:[address] [facility] NEUTROPHILS % 63.4 42.1 - 71.9 % 01/24/2022 3:[address] [facility] MONOCYTES % 5.7 5.7 - 12.5 % 01/24/2022 3:[address] [facility] EOSINOPHILS 4.1 0.0 - 5.6 % 01/24/2022 3:[address] [facility] BASOPHILS 0.7 0.0 - 1.3 % 01/24/2022 3:[address] [facility] ABS. NEUTROPHILS 5.11 1.40 - 6.00 x10'3/uL 01/24/2022 3:[address] [facility] IMMATURE GRANS % 0.2 0.0 - 0.5 % 01/24/2022 3:[address] [facility] ABS. LYMPHOCYTES 2.09 0.80 - 4.70 x10'3/uL 01/24/2022 3:[address] [facility] 01/24/2022 12:3 0 PM SLOT MACHINE KEY PERSON us Abiodun Segura II, MD LABORATORY Final R esult [facility] [address] [facility] [place] [address], [place] [phone] * C-REACTIVE PROTEIN (01/24/2022 12:30 PM SLOT MACHINE KEY PERSON) C-REACTIVE PROTEIN 0.50 <0.9 mg/dL 01/24/2022 3:59 PM SLOT MACHINE KEY PERSON [facility] 01/24/2022 12:3 0 PM SLOT MACHINE KEY PERSON Abiodun Segura II, MD LABORATORY Final R esult Performing Organization Address City/[facility] Co de Phone Number [facility] [address] [place] [address], [place] [phone] * CK (CPK) (01/24/2022 12:30 PM SLOT MACHINE KEY PERSON) CPK 183 26 - 192 U/L 01/24/2022 3:59 PM SLOT MACHINE KEY PERSON [facility] 01/24/2022 12:3 0 PM SLOT MACHINE KEY PERSON Abiodun Seguar II, MD LABORATORY Final R esult Performing Organization Address City/[facility] de Phone Number [facility] [address] [place] [address], [place] [phone] documented in this encounter Visit Diagnoses 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CMS/HCC HHS/[facility]) Other specified disorder of skin Face, neck, and scalp except eye, blister, infected documented in this encounter Additional Health Concerns Assessment Noted Time PHQ-9 Depression Total Score: 0 03/08/19 9:30 AM SLOT MACHINE KEY PERSON documented as of this encounter Care Teams Pediatrician Active Practice Relationship Specialty Start Date End Date Abiodun Segura II, MD [address] [place] [address] PCP - General FAMILY PRACTICE 03/09/21 documented as of this encounter
--- OUTSIDE RECORDS SUMMARY | 2024-03-02 22:26 | XMS_ITS | Encounter Summary ---
Author Organization [facility] Address [address] [place] [address]. [place] [address] [place] [address] Care Team Providers Care Manager Culture Name Role Phone Colton SILVEIRA MD, Yasmin Rushing Primary Care Provider Reason for Visit * Reason Comments Urinary Problem Patient presents wit h complaint of frequent urination and pressure Encounter Details Date Type Department Care Team (Late st Contact Info) Description 02/15/2022 3:40 PM FEEDER SWITCHBOARD OPERATOR Office Visit [facility] Family Medicine - [place] [address] [place] [address] Audie Vides PA-C 100 [facility] [place] [address] Urinary Problem (Patient presents with complaint of frequent urination and pressure) Social History Tobacco Use Types Packs/Day Years [...] Coronavirus/COVID-19? No / Unsure 02/15/2022 1:18 PM FEEDER SWITCHBOARD OPERATOR documented as of this encounter Last Filed Vital Signs Vital Sign Reading Time Taken Comments Blood Pressure 145/75 02/15/2022 2:46 PM FEEDER SWITCHBOARD OPERATOR Pulse 91 02/15/2022 2:22 PM FEEDER SWITCHBOARD OPERATOR Temperature 36.4 ??C (97.6 ??F) 02/15/2022 2:22 PM CS T Respiratory Rate - - Oxygen Saturation 100% 02/15/2022 2:22 PM FEEDER SWITCHBOARD OPERATOR Inhaled Oxygen Concentration - - Weight 86.6 kg (191 lb) 02/15/2022 2:22 PM FEEDER SWITCHBOARD OPERATOR Height - - Body Mass Index 30.83 01/08/2022 5:27 PM FEEDER SWITCHBOARD OPERATOR documented in this encounter Functional Status * [...] documented in this encounter Progress Notes * CYNTHIA Colon-C - 02/15/2022 3:40 PM CST Reason for Visit: Urinary Problem (Patient presents with complaint of frequent urination and pressure) History of Present Illness: Patient here for possible UTI. She has been having frequent urination and dysuria for 4 days. She denies hematuria, abdominal pain, flank pain, melena, blood in stool, diarrhea, and constipation. Shehad a history of frequent UTIs and this seems to be her usual UTI. She started some old cephalexin on her own (took about 2 pills) and has been taking azo OTC. ROS: Review of Systems Constitutional: Negative for fever. Respiratory: Negative for shortness of breath. Cardiovascular: Negative for chest pain. Gastrointestinal: Negative for abdominal pain, blood in stool, constipation, diarrhea, melena, nausea and vomiting. Genitourinary: Positive for dysuria and frequency. Negative for flank pain and hematuria. Psychiatric/Behavioral: Negative for suicidal ideas. All other systems reviewed and are negative. Medications: Current Outpatient Medications: ??? acidophilus (FLORAJEN) capsule, Take 1 capsule by mouth 2 (two) times daily., Disp: 60 capsule,Rfl: 0 ??? amLODIPine 10 MG tablet, Take 1 tablet (10 mg total) by mouth daily. (Patient taking differently: Take 10 mg by mouth nightly.), Disp: 90 tablet, Rfl: 3 ??? ciprofloxacin (CIPRO) 500 MG tablet, Take 1 tablet (500 mg total) by mouth 2 (two) times daily for 7 days., Disp: 14 tablet, Rfl: 0 ??? cyclobenzaprine 10 MG tablet, Take 1 tablet (10 mg total) by mouth 3 (three) times daily as needed., Disp: 15 tablet, Rfl: 0 ??? Dulaglutide (TRULICITY) 3 MG/0.5ML Solution Pen-injector, Inject 3 mg into the skin weekly. Fridays, Disp: 6 mL, Rfl: 3 ??? HYDROcodone-acetaminophen (NORCO) 5-325 MG tablet, Take [...] Units into the skin every evening. Indications: diabetes, Disp: , Rfl: ??? insulin lispro protamine-insulin lispro (HUMALOG MIX 75/25) (75-25) 100 UNIT/ML Suspension, Inject 65 Units into the skin every morning. Indications: diabetes, Disp: , Rfl: ??? linaCLOtide 145 MCG [...] Indications: IV patency, Disp: , Rfl: ??? traMADol (ULTRAM) 50 MG tablet, Take 1 tablet (50 mg total) by mouth every 6 (six) hours as needed. Indications: Acute Pain < 3 Day Supply, Disp: 12 tablet, Rfl: 0 ??? Heparin Sodium, Porcine, (HEPARIN SODIUM FLUSH IV), 5 mLs by IVP route daily. Indications: IV patency, Disp: , Rfl: Allergies Allergen Reactions ??? Fish Oil Unknown ??? Amoxicillin Rash ??? Penicillins Rash Past Medical History: Diagnosis Date ??? Arthritis [...] cervical surgery ??? RETINAL DETACHMENT SURGERY Right Social History Socioeconomic History ??? Marital status: Tobacco Use ??? Smoking status: Never ??? Smokeless tobacco: Never Vaping Use ??? Vaping Use: Never used Substance and Sexual Activity ??? Alcohol use: Yes Comment: Rarely ??? Drug use: No Other Topics Concern ??? Caffeine Concern No ??? Exercise No ??? Seat Belt Yes Social History Narrative lives with and [facility]. E-Cigarettes Questions Responses E-Cigarette Use Never User E-cigarette/Vaping Substances Questions Responses Nicotine No THC No CBD No Flavoring No E-cigarette/Vaping Devices Questions Responses Disposable No Pre-filled or Refillable Cartridge No Refillable Tank No Pre-filled Pod No Family History Problem Relation Name Age of Onset ??? Diabetes Mother ??? Hypertension Mother ??? Heart Attack Father ??? Hypertension Father ??? Stroke Sister ??? Hypertension Sister ??? Breast Cancer Other cousin 49 Family Status Relation Name Status ??? Mother Alive, age 73y ??? Father Alive, age 72y ??? Sister (Not Specified) ??? Daughter Alive ??? Other cousin Alive Physical Exam Vitals reviewed. Constitutional: Appearance: Normal appearance. Neck: Thyroid: No thyromegaly. Cardiovascular: Rate and Rhythm: Normal rate and regular rhythm. Pulmonary: Effort: Pulmonary effort is normal. Breath sounds: Normal breath sounds. Musculoskeletal: Right lower leg: No edema. Left lower leg: No edema. Neurological: Mental Status: She is alert. Psychiatric: Mood and Affect: Mood normal. Filed Vitals: 02/15/22 1422 02/15/22 1446 BP: (!) 161/92 (!) 145/75 Pulse: 91 Temp: 97.6 ??F (36.4 ??C) TempSrc: Temporal SpO2: 100% Weight: 86.6 kg (191 lb) Diagnoses/Impression: 1. Cystitis ciprofloxacin (CIPRO) 500 MG tablet Recommendations and Plan: Unable to take UA as she took azo and her urine is orange. She will take cipro and call if not better. Orders Placed This Encounter ??? ciprofloxacin (CIPRO) 500 MG tablet Reviewed and updated this visit by provider: Tobacco Allergies Meds Problems Med Hx Surg Hx Fam Hx AUDIE VIDES PA-C Referring Provider: No ref. provider found PCP: YASMIN SEGURA MD ER SWITCHBOARD OPERATOR documented in this encounter Plan of Treatment Upcoming Encounters Date Type Department Care Team (Late st Contact Info) Description 03/14/2024 11:45 AM FEEDER SWITCHBOARD OPERATOR Office Visit [facility] [phone] Marvin Mckeon MD Three [facility] [address] [place] [address] 03/20/2024 11:30 AM FEEDER SWITCHBOARD OPERATOR Office Visit [facility] Family Medicine - [place] [address] [place] [phone] Yasmin Segura II, MD [address] [place] [phone] documented as of this encounter Visit Diagnoses Diagnosis Cystitis- Primary Cystitis, unspecified documented in this encounter Additional Health Concerns Assessment Noted Time PHQ-9 Depression Total Score: 0 03/08/19 9:30 AM FEEDER SWITCHBOARD OPERATOR documented as of this encounter Care Teams Manager Culture Relationship Specialty Start Date End Date Yasmin Segura II, MD [address] [place] [address] PCP - General FAMILY PRACTICE 03/09/21 documented as of this encounter
--- OUTSIDE RECORDS SUMMARY | 2024-03-02 22:26 | XMS_ITS | Encounter Summary ---
Author Organization [facility] Address [address] [place] [address]. [place] [address] [place] [address] Care Team Providers Care Rn Anesthetist Name Role Phone Colton SILVEIRA MD, Abiodun Rushing Primary Care Provider Encounter Details Date Type Department Care Team (Late st Contact Info) Description 01/31/2022 Orders Only [facility] [address] [place], [place] [phone] Abiodun Segura II, MD [address] [place] [phone] Social History Tobacco Use Types Packs/Day [...] Coronavirus/COVID-19? No / Unsure 01/10/2022 11:53 AM PROCESS TECH documented as of this encounter Functional Status [...] st Contact Info) Description 03/14/2024 11:45 AM PROCESS TECH Office Visit [facility] [phone] [facility] [address] [place] [address] 03/20/2024 11:30 AM PROCESS TECH Office Visit [facility] Family Medicine - [place] [address] [place] [phone] Abiodnu Segura II, MD [address] [place] [phone] documented as of this encounter Results * (ABNORMAL) C-REACTIVE PROTEIN (02/15/2022 1:24 PM PROCESS TECH) C-REACTIVE PROTEIN 1.84(H) <0.29 mg/dL 02/15/2022 1:56 PM PROCESS TECH [facility] 02/15/2022 1:24 PM PROCESS TECH Abiodun Segura II, MD LABORATORY Final R esult Performing Organization Address City/[facility]/ZIP Co de Phone Number [facility] [address] [place] [address], [place] [phone] * (ABNORMAL) C-REACTIVE PROTEIN (01/31/2022 11:30 AM PROCESS TECH) C-REACTIVE PROTEIN 2.10(H) <0.9 mg/dL 01/31/2022 2:50 PM PROCESS TECH [facility] 01/31/2022 11:3 0 AM PROCESS TECH us Abiodun Segura II, MD LABORATORY Final R esult Performing Organization Address City/[facility]/ZIP Co de Phone Number [facility] [address] [place] [address], [place] [phone] * CK (CPK) (01/31/2022 11:30 AM PROCESS TECH) CPK 169 26 - 192 U/L 01/31/2022 2:50 PM PROCESS TECH [facility] 01/31/2022 11:3 0 AM PROCESS TECH us Abiodun Segura II, MD LABORATORY Final R esult [facility] [address] [place] [address], [place] [phone] * (ABNORMAL) CBC W/DIFF AUTOMATED (01/31/2022 11:30 AM PROCESS TECH) [facility] WBC 7.6 4.4 - 11.0 x10'3/uL 01/31/2022 2:28 PM [facility] RBC 3.65(L) 4.50 - 5.10 x10'6/uL 01/31/2022 2:28 PM [facility] HGB 11.0(L) 12.3 - 15.3 G/DL 01/31/2022 2:28 PM [facility] HCT 32.8(L) 35.9 - 44.6 % 01/31/2022 2:28 PM [facility] MCV 89.9 80.0 - 96.0 FL 01/31/2022 2:28 PM [facility] MCH 30.1 25.3 - 30.9 PG 01/31/2022 2:28 PM [facility] MCHC 33.5 31.0 - 34.1 G/DL 01/31/2022 2:28 PM [facility] RDW 13.7 12.4 - 15.1 % 01/31/2022 2:28 PM [facility] PLT 224 151 - 353 x10'3/uL 01/31/2022 2:28 PM [facility] MPV 11.6 9.6 - 12.0 FL 01/31/2022 2:28 PM [facility] RBC MORPHOLOGY NORMAL 01/31/2022 2:28 PM [facility] PLT MORPH. NORMAL 01/31/2022 2:28 PM [facility] WBC MORPHOLOGY NORMAL 01/31/2022 2:28 PM [facility] LYMPHOCYTES % 27.6 15.8 - 45.0 % 01/31/2022 2:28 PM [facility] NEUTROPHILS % 63.7 42.1 - 71.9 % 01/31/2022 2:28 PM [facility] MONOCYTES % 5.4(L) 5.7 - 12.5 % 01/31/2022 2:28 PM [facility] EOSINOPHILS 2.2 0.0 - 5.6 % 01/31/2022 2:28 PM [facility] BASOPHILS 0.8 0.0 - 1.3 % 01/31/2022 2:28 PM [facility] ABS. NEUTROPHILS 4.87 1.40 - 6.00 x10'3/uL 01/31/2022 2:28 PM [facility] IMMATURE GRANS % 0.3 0.0 - 0.5 % 01/31/2022 2:28 PM [facility] ABS. LYMPHOCYTES 2.11 0.80 - 4.70 x10'3/uL 01/31/2022 2:28 PM [facility] 01/31/2022 11:3 0 AM PROCESS TECH Abiodun Segura II, MD LABORATORY Final R esult [facility] [address] [place] [address], * (ABNORMAL) COMPREHENSIVE METABOLIC PANEL (01/31/2022 11:30 AM PROCESS TECH) GLUCOSE 96 70 - 99 MG/DL 01/31/2022 2:50 PM [facility] BUN 18 7 - 18 MG/DL 01/31/2022 2:50 PM [facility] CREATININE S/P/B 0.81 0.55 - 1.02 MG/DL 01/31/2022 2:50 PM [facility] SODIUM S/P/B 143 136 - 145 MMOL/L 01/31/2022 2:50 PM [facility] POTASSIUM S/P/B 3.1(L) 3.5 - 5.1 MMOL/L 01/31/2022 2:50 PM [facility] CHLORIDE S/P/B 103 100 - 108 MMOL/L 01/31/2022 2:50 PM [facility] CO2 34.3(H) 21 - 32 MMOL/L 01/31/2022 2:50 PM [facility] CALCIUM S/P/B 9.4 8.5 - 10.1 MG/DL 01/31/2022 2:50 PM [facility] BILIRUBIN TOTAL S/P/B 0.6 0.2 - 1.2 MG/DL 01/31/2022 2:50 PM [facility] TOTAL PROTEIN S/P/B 8.3(H) 6.4 - 8.2 G/DL 01/31/2022 2:50 PM [facility] ALBUMIN S/P/B 3.2(L) 3.4 - 5.0 G/DL 01/31/2022 2:50 PM [facility] AST 25 15 - 37 U/L 01/31/2022 2:50 PM [facility] ALT 34 14 - 55 U/L 01/31/2022 2:50 PM [facility] ALKALINE PHOSPHATASE S/P/B 150(H) 50 - 136 U/L 01/31/2022 2:50 PM [facility] ANION GAP 5.7 5 - 15 MMOL/L 01/31/2022 2:50 PM PROCESS TECH [facility] BUN CREATININE RATIO 22.2 6 - 26 01/31/2022 2:50 PM PROCESS TECH [facility] A/G RATIO 0.6(L) 1.0 - 2.0 RATIO 01/31/2022 2:50 PM PROCESS TECH [facility] GFR ESTIMATE 88(L) >90 ML/MIN/1.7 3 M2 01/31/2022 2:50 PM PROCESS TECH [facility] Comment: NOTE: eGFR is not calculated for patients <18 years of age. This is an estimated GFR calculation using the new CKD EPI creatinine equation without race and so does not require a correction factor for race. This estimated GFR should not be used for calculating drug doses. 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 Other specified disorder of skin Face, neck, and scalp except eye, blister, infected Other chronic osteomyelitis of foot, unspecified laterality ([facility]) documented in this encounter Additional Health Concerns Assessment Noted Time PHQ-9 Depression Total Score: 0 03/08/19 9:30 AM PROCESS TECH documented as of this encounter Care Teams Rn Anesthetist Relationship Specialty Start Date End Date Abiodun Segura II, MD [address] [place] [id number] PCP - General FAMILY PRACTICE 03/09/21 documented as of this encounter
--- OUTSIDE RECORDS SUMMARY | 2024-03-02 22:26 | XMS_ITS | Encounter Summary ---
Author Organization [facility] Address [address] [place] [address]. [place] [address] [place] [address] Care Team Providers Care Recreational Director Name Role Phone Colton SILVEIRA MD, Abiodun Rushing Primary Care Provider Encounter Details Date Type Department Care Team (Late st Contact Info) Description 01/10/2022 Orders Only [facility] [address] [place], [place] [phone] Abiodun Segura II, MD [address] [place] [address] Social History Tobacco Use Types Packs/Day [...] Coronavirus/COVID-19? No / Unsure 01/10/2022 11:53 AM SWING GRINDER documented as of this encounter Functional Status [...] st Contact Info) Description 03/14/2024 11:45 AM SWING GRINDER Office Visit [facility] [phone] Marvin Mckeon MD [facility] [address] [place] [address] 03/20/2024 11:30 AM SWING GRINDER Office Visit [facility] Family Medicine - [place] [address] [place] [phone] Abiodun Segura II, MD [address] [place] [address] documented as of this encounter Results * CK (CPK) (01/10/2022 10:45 AM SWING GRINDER) CPK 114 26 - 192 U/L 01/10/2022 2:02 PM SWING GRINDER [facility] 01/10/2022 10:4 5 AM SWING GRINDER Abiodun Segura II, MD LABORATORY Final R esult Performing Organization Address [facility] [place]/[facility]/ZIP Co de Phone Number [facility] [address] [place] [address], [place] [phone] * (ABNORMAL) C-REACTIVE PROTEIN (01/10/2022 10:45 AM SWING GRINDER) C-REACTIVE PROTEIN 3.60(H) <0.9 mg/dL 01/10/2022 2:02 PM SWING GRINDER [facility] 01/10/2022 10:4 5 AM SWING GRINDER Abiodun Segura II, MD [facility]ATORY [facility] Performing Organization Address City/[facility]/ZIP Co de Phone Number [facility] [address] [place] [address], [place] [phone] * (ABNORMAL) CBC W/DIFF AUTOMATED (01/10/2022 10:45 AM SWING GRINDER) WBC 4.6 4.4 - 11.0 x10'3/uL 01/10/2022 1:49 PM SWING GRINDER [facility] RBC 4.01(L) 4.50 - 5.10 x10'6/uL 01/10/2022 1:49 PM SWING GRINDER [facility] HGB 11.9(L) 12.3 - 15.3 G/DL 01/10/2022 1:49 PM SWING GRINDER [facility] HCT 35.5(L) 35.9 - 44.6 % 01/10/2022 1:49 PM [facility] MCV 88.5 80.0 - 96.0 FL 01/10/2022 1:49 PM [facility] MCH 29.7 25.3 - 30.9 PG 01/10/2022 1:49 PM [facility] MCHC 33.5 31.0 - 34.1 G/DL 01/10/2022 1:49 PM [facility] RDW 13.4 12.4 - 15.1 % 01/10/2022 1:49 PM [facility] PLT 182 151 - 353 x10'3/uL 01/10/2022 1:49 PM [facility] MPV 12.5(H) 9.6 - 12.0 FL 01/10/2022 1:49 PM [facility] NEUTROPHILS % 50.6 42.1 - 71.9 % 01/10/2022 2:10 PM [facility] LYMPHOCYTES % 33.4 15.8 - 45.0 % 01/10/2022 2:10 PM [facility] BASOPHILS 1.1 0.0 - 1.3 % 01/10/2022 2:10 PM [facility] EOSINOPHILS 5.4 0.0 - 5.6 % 01/10/2022 2:10 PM [facility] MONOCYTES % 9.5 5.7 - 12.5 % 01/10/2022 2:10 PM [facility] IMMATURE GRANS % 0.0 0.0 - 0.5 % 01/10/2022 2:10 PM [facility] ABS. NEUTROPHILS 2.33 1.40 - 6.00 x10'3/uL 01/10/2022 2:10 PM [facility] ABS. LYMPHOCYTES 1.54 0.80 - 4.70 x10'3/uL 01/10/2022 2:10 PM [facility] PLT MORPH. PLATELET COUNT MAY BE ARTIFACTUALLY LOW DUE TO PLATELET CLUMPING 01/10/2022 2:10 PM [facility] RBC MORPHOLOGY NORMAL 01/10/2022 2:10 PM [facility] WBC MORPHOLOGY NORMAL 01/10/2022 2:10 PM [facility] 01/10/2022 10:4 5 AM SWING GRINDER us Abiodun Segura II, MD LABORATORY Edited Result - Final [facility] [address] [place] [address], [place] [phone] * (ABNORMAL) COMPREHENSIVE METABOLIC PANEL (01/10/2022 10:45 AM SWING GRINDER) GLUCOSE 106(H) 70 - 99 MG/DL 01/10/2022 2:02 PM [facility] BUN 21(H) 7 - 18 MG/DL 01/10/2022 2:02 PM [facility] CREATININE S/P/B 1.08(H) 0.55 - 1.02 MG/DL 01/10/2022 2:02 PM [facility] SODIUM S/P/B 140 136 - 145 MMOL/L 01/10/2022 2:02 PM [facility] POTASSIUM S/P/B 3.9 3.5 - 5.1 MMOL/L 01/10/2022 2:02 PM [facility] CHLORIDE S/P/B 103 100 - 108 MMOL/L 01/10/2022 2:02 PM [facility] CO2 21.7 21 - 32 MMOL/L 01/10/2022 2:02 PM [facility] CALCIUM S/P/B 9.3 8.5 - 10.1 MG/DL 01/10/2022 2:02 PM [facility] BILIRUBIN TOTAL S/P/B 0.3 0.2 - 1.2 MG/DL 01/10/2022 2:02 PM [facility] TOTAL PROTEIN S/P/B 9.4(H) 6.4 - 8.2 G/DL 01/10/2022 2:02 PM [facility] ALBUMIN S/P/B 3.5 3.4 - 5.0 G/DL 01/10/2022 2:02 PM [facility] AST 46(H) 15 - 37 U/L 01/10/2022 2:02 PM [facility] ALT 52 14 - 55 U/L 01/10/2022 2:02 PM [facility] ALKALINE PHOSPHATASE S/P/B 217(H) 50 - 136 U/L 01/10/2022 2:02 PM [facility] ANION GAP 15.3(H) 5 - 15 MMOL/L 01/10/2022 2:02 PM [facility] BUN CREATININE RATIO 19.4 6 - 26 01/10/2022 2:02 PM [facility] A/G RATIO 0.6(L) 1.0 - 2.0 RATIO 01/10/2022 2:02 PM [facility] GFR ESTIMATE 63(L) >90 ML/MIN/1.7 3 M2 01/10/2022 2:02 PM [facility] Comment: NOTE: eGFR is not calculated for patients <18 years of age. This is an estimated GFR calculation using the new CKD EPI creatinine equation without race and so does not require a correction factor for race. This estimated GFR should not be used for calculating drug doses. 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
--- OUTSIDE RECORDS SUMMARY | 2024-03-02 22:26 | XMS_ITS | Encounter Summary ---
Author Organization [facility] Address [address] [place] [address]. [place], [place] [address] [place] [address] Care Team Providers Care Cloth Framer Name Role Phone Colton SILVEIRA MD, Abiodun Rushing Primary Care Provider Encounter Details Date Type Department Care Team (Latest Contact Info) Description 01/09/2022 Scan HEALTH INFO SRVCS Scanned, Doc Med [...] Coronavirus/COVID-19? No / Unsure 01/10/2022 11:53 AM LEAD CARPENTER documented as of this encounter Functional Status [...] st Contact Info) Description 03/14/2024 11:45 AM LEAD CARPENTER Office Visit [facility]-[address] [phone] Marvin Mckeon MD [facility] [address] [place] [address] 03/20/2024 11:30 AM LEAD CARPENTER Office Visit [facility] Family Medicine - [address] [phone] Abiodun Segura II, MD [address] [place] [address] documented as of this encounter Visit Diagnoses Not on filedocumented in this encounter Additional Health Concerns Assessment Noted Time PHQ-9 Depression Total Score: 0 03/08/19 22 9:30 AM LEAD CARPENTER documented as of this encounter Care Teams Cloth Framer Relationship Specialty Start Date End Date Abiodun Segura II, MD [address] [place] [address] PCP - General FAMILY PRACTICE 03/09/21 documented as of this encounter
--- OUTSIDE RECORDS SUMMARY | 2024-03-02 22:26 | XMS_ITS | Encounter Summary ---
Author Organization [facility] Address [address] [place] [address]. [place], [place] [address] [place] [address] Care Team Providers Care Produce Team Member Name Role Phone Colton SILVEIRA MD, Abiodun Rushing Primary Care Provider Reason for Visit * Reason Comments Lab (SCAN) Encounter Details Date Type Department Care Team (Latest Contact Info) Description 01/03/2022 Scan HEALTH INFO SRVCS Scanned, Doc Med [...] Coronavirus/COVID-19? No / Unsure 01/10/2022 11:53 AM PATROL MOTHER documented as of this encounter Functional Status [...] Law RN Active documented in this encounter Plan of Treatment Upcoming Encounters Date Type Department Care Team (Late st Contact Info) Description 03/14/2024 11:45 AM PATROL MOTHER Office Visit [facility] [phone] Marvin Mckeon MD [facility] [address] [place] [address] 03/20/2024 11:30 AM PATROL MOTHER Office Visit [facility] Family Medicine - [place] 100 [place] [phone] Abiodun Segura II, MD [address] [place] [address] documented as of this encounter Procedures Procedure Name Priority Date/Time Associated Diagnosis Comments OUTSIDE LAB (SCAN ORDER) 01/03/2022 OUTSIDE LAB (SCAN ORDER) 01/03/2022 OUTSIDE LAB (SCAN ORDER) 01/03/2022 documented in this encounter Results * OUTSIDE LAB (SCAN) (01/03/2022) 01/03/2022 [facility] Scanned SCANNING Final Resu lt * OUTSIDE LAB (SCAN) (01/03/2022) 01/03/2022 [facility] Scanned SCANNING Final Resu lt * OUTSIDE LAB (SCAN) (01/03/2022) 01/03/2022 [facility] Scanned SCANNING Final Resu lt documented in this encounter Visit Diagnoses Not on filedocumented in this encounter Additional Health Concerns Infection Onset Date Last Indicated Resolved Time COVID-19 Rule Out 01/08/2022 01/08/2022 01/08/2022 6:50 PM PATROL MOTHER Assessment Noted Time PHQ-9 Depression Total Score: 0 03/08/19 9:30 AM PATROL MOTHER documented as of this encounter Care Teams Produce Team Member Relationship Specialty Start Date End Date Abiodun Segura II, MD [address] [place] [address] PCP - General FAMILY PRACTICE 03/09/21 documented as of this encounter
--- OUTSIDE RECORDS SUMMARY | 2024-03-02 22:26 | XMS_ITS | Encounter Summary ---
Author Organization [facility] Address [address] [place] [address]. [place] [address] [place] [address] Care Team Providers Care Technical Business Analyst Name Role Phone Colton SILVEIRA MD, Abiodun Rushing Primary Care Provider Reason for Referral * Imaging (Routine) - Closed Specialty Diagnoses / Procedures Referred By Lyla chaney Referred To Contact RADIOLOGY Diagnoses Right arm pain Procedures USV JOANIE DUPLEX UP EXT RT Keisha Rios FNP-BC Referral ID Status Reason Start Date Expiration Date Visits Re quested Visits Authorized [id number] Closed 01/02/2022 02/02/2023 1 1 ACE COMBINATION ANALYST Reason for Visit * Imaging (Routine) - Closed Specialty Diagnoses / Procedures Referred By Lyla chaney Referred To Contact RADIOLOGY Diagnoses Right arm pain Procedures USV JOANIE DUPLEX UP EXT RT Keisha Rios FNP-BC Referral ID Status Reason Start Date Expiration Date Visits Re quested Visits Authorized [id number] Closed 01/02/2022 02/02/2023 1 1 Encounter Details Date Type Department Care Team (Latest Contact Info) Description 01/02/2022 6:40 AM FURNACE COMBINATION ANALYST - 01/02/2022 11:59 PM FURNACE COMBINATION ANALYST Hospital Encounter [facility] Vascular Lab [address] [place] [address] Keisha Rios FNP-BC Discharge Disposition: Home or Self Care (Routine [...] Coronavirus/COVID-19? No / Unsure 01/01/2022 7:00 PM FURNACE COMBINATION ANALYST documented as of this encounter Functional Status [...] 22 Dulaglutide (TRULICITY) 3 MG/0.5ML Solution Pen-injectorIndicat ions:Type 2 diabetes mellitus with diabetic neuropathic arthropathy, with long-term current use of insulin ([facility]) Inject 3 mg into the skin weekly. 12 pen 3 03/21/2021 01/07/20 22 Heparin Sodium, Porcine, (HEPARIN SODIUM FLUSH IV)Indications:IV [...] clinician.] 30 capsule 5 04/20/2021 03/15/19 23 LISINOPRIL 40 MG tabletIndications:P rimary hypertension Take 1 tablet by mouth once daily 30 tablet 5 05/31/2021 01/07/20 22 omeprazole 40 MG capsuleIndications: Esophagitis due to [...] daily. Indications: IV patency 12/27/2021 05/06/19 23 documented as of this encounter Plan of Treatment Upcoming Encounters Date Type Department Care Team (Late st Contact Info) Description 03/14/2024 11:45 AM FURNACE COMBINATION ANALYST Office Visit [facility] [phone] Marvin Mckeon MD [facility] [address] [place] [address] 03/20/2024 11:30 AM FURNACE COMBINATION ANALYST Office Visit [facility] Family Medicine - [place] 100 [place] [phone] Abiodun Segura II, MD [address] [place] [address] documented as of this encounter Procedures Procedure Name Priority Date/Time Associated Diagnosis Comments USV JOANIE DUPLEX UP EXT RT Routine 01/02/2022 11:06 AM FURNACE COMBINATION ANALYST Right arm pain documented in this encounter Results * USV JOANIE DUPLEX UP EXT RT (01/02/2022 11:06 AM FURNACE COMBINATION ANALYST) Anatomical Region Laterality Modality Extremity Vascular Ultraso und 01/02/2022 10:3 1 AM FURNACE COMBINATION ANALYST Narrative 01/03/2022 11:33 AM FURNACE COMBINATION ANALYST ?VENOUS DUPLEX IMAGING ?RIGHT UPPER EXTREMITY ? VASCULAR LAB Pat.Name: ??LENA YOUNGBLOOD ?Pat.ID: ?[id number] ? St.Date: ?? 01/02/2022 ?Refer.MD: ??Abiodun Segura ? Exam Time: 10:31:00 AM ? Study Type:MARINO VS Venous Duplex Arm Rt ??Age: ??1970,51Y ? Sex: ? F ? Sonogrphr: Zayda Haywood, RVT ? Pat. Stat.:Outpatient ? Room: ?STAT ? History / Clinical:Right arm pain-tenderness, since placement of Rt Brac PICC line; no signif swelling; ??no hx VTE, no prior study; ??PMH htn, hld, dm, osteo w/ toe amp Procedures: Danielle scale, Color Doppler imaging, Doppler Spectral Analysis Race: ?B ? ++++++++++++++++++++++++++++++++++++ SUMMARY: ++++++++++++++++++++++++++++++++++++ Right upper extremity exam: ??There are NO apparent, deep or superficial vein, ACUTE character venous filling defects visualized in the central, brachial or superficial veins. ??Resting venous flow is normal pulsatile/phasic in the central veins. PICC line inserts at mid brachial vein; ??no associated venous defects are noted. Left upper extremity LIMITED: ??Resting venous flow is normal pulsatile/phasic in the central veins. Preliminary findings reported to Dr. Segura via Halo after exam. CONCLUSION: Normal study right upper extremity, bilateral central veins, with no evidence of deep or superficial vein thrombosis. ? <Electronic Signature> 01/03/2022 11:33 AM Hubert Barrera M.D. Procedure Note Hubert Barrera MD - 01/03/2022 VENOUS DUPLEX IMAGING RIGHT UPPER EXTREMITY VASCULAR LAB Pat.Name: LENA YOUNGBLOOD Pat.ID: [id number] .Date: 01/02/2022 Refer.MD: Abiodun Segura Exam Time: 10:31:00 AM Study Type:MARINO VS Venous Duplex Arm Rt Age: 3 1970,51Y Sex: F Sonogrphr: Zayda ThonyFOZIA cronin Pat. Stat.:Outpatient Room: STAT History / Clinical:Right arm pain-tenderness, since placement of Rt Brac PICC line; no signif swelling; no hx VTE, no prior study; PMH htn, hld, dm, osteo w/ toe amp Procedures: Danielle scale, Color Doppler imaging, Doppler Spectral Analysis Race: B ++++++++++++++++++++++++++++++++++++ SUMMARY: ++++++++++++++++++++++++++++++++++++ Right upper extremity exam: There are NO apparent, deep or superficial vein, ACUTE character venous filling defects visualized in the central, brachial or superficial veins. Resting venous flow is normal pulsatile/phasic in the central veins. PICC line inserts at mid brachial vein; no associated venous defects are noted. Left upper extremity LIMITED: Resting venous flow is normal pulsatile/phasic in the central veins. Preliminary findings reported to Dr. Segura via Halo after exam. CONCLUSION: Normal study right upper extremity, bilateral central veins, with no evidence of deep or superficial vein thrombosis. <Electronic Signature> 01/03/2022 11:33 AM Hubert Barrera M.D. Keisha Rios ROUNDER HAND- US VASC Final Res ult documented in this encounter Visit Diagnoses Diagnosis Right arm pain Pain in limb documented in this encounter Additional Health Concerns Assessment Noted Time PHQ-9 Depression Total Score: 0 03/08/19 22 9:30 AM FURNACE COMBINATION ANALYST documented as of this encounter Care Teams Technical Business Analyst Relationship Specialty Start Date End Date Abiodun Segura II, MD [address] [place] [address] PCP - General FAMILY PRACTICE 03/09/21 documented as of this encounter
--- OUTSIDE RECORDS SUMMARY | 2024-03-02 22:26 | XMS_ITS | Encounter Summary ---
Author Organization [facility] Address [address] [place] [address]. [place], [place] [address] [place] [address] Care Team Providers Care Placer Miner Name Role Phone Colton SILVEIRA MD, Abiodun Rushing Primary Care Provider Encounter Details Date Type Department Care Team (Latest Contact Info) Description 01/23/2022 Scan HEALTH INFO SRVCS Scanned, Doc Med [...] Coronavirus/COVID-19? No / Unsure 01/10/2022 11:53 AM CITRIX LEAD documented as of this encounter Functional Status [...] st Contact Info) Description 03/14/2024 11:45 AM CITRIX LEAD Office Visit [facility]-[address] [phone] Marvin Mckeon MD [facility] [address] [place] [address] 03/20/2024 11:30 AM CITRIX LEAD Office Visit [facility] Family Medicine - [address] [phone] Abiodun Segura II, MD [address] [place] [address] documented as of this encounter Visit Diagnoses Not on filedocumented in this encounter Additional Health Concerns Assessment Noted Time PHQ-9 Depression Total Score: 0 03/08/19 22 9:30 AM CITRIX LEAD documented as of this encounter Care Teams Placer Miner Relationship Specialty Start Date End Date Abiodun Segura II, MD 100 [place] [address] PCP - General FAMILY PRACTICE 03/09/21 documented as of this encounter
--- OUTSIDE RECORDS SUMMARY | 2024-03-02 22:26 | XMS_ITS | Encounter Summary ---
Author Organization [facility] Address [address] [place] [address]. [place] [address] [place] [address] Care Team Providers Care Machine Precision Etcher Name Role Phone Colton SILVEIRA MD, Abiodun Rushing Primary Care Provider Victoriano Langston MD Unavailable [phone] Encounter Details Date Type Department Care Team (Late st Contact Info) Description 01/09/2022 Therapy Plan [facility] [place] [address] Abiodun Segura II, MD [address] [place] [address] Social History Tobacco Use Types Packs/Day [...] Coronavirus/COVID-19? No / Unsure 01/10/2022 11:53 AM PARCEL WRAPPER documented as of this encounter Functional Status [...] st Contact Info) Description 03/14/2024 11:45 AM PARCEL WRAPPER Office Visit [facility] [phone] Marvin Mckeon MD [address] [facility] [address] [place], [place] [phone] 03/20/2024 11:30 AM PARCEL WRAPPER Office Visit [facility] Medical [facility] Family Medicine - [place] [address] [place] [address] Abiodun Segura II, MD [address] [place] [address] documented as of this encounter Visit Diagnoses Diagnosis Osteomyelitis ([facility])- Primary Unspecified osteomyelitis, site unspecified documented in this encounter Additional Health Concerns Assessment Noted Time PHQ-9 Depression Total Score: 0 03/08/19 22 9:30 AM PARCEL WRAPPER documented as of this encounter Care Teams Machine Precision Etcher Relationship Specialty Start Date End Date Abiodun Segura II, MD [address] [place] [address] PCP - General FAMILY PRACTICE 03/09/21 [place] [address] [place] [address] PODIATRY/SURGERY 05/05/22 documented as of this encounter
--- OUTSIDE RECORDS SUMMARY | 2024-03-02 22:26 | XMS_ITS | Encounter Summary ---
Author Organization [facility] Address [address] [place] [address]. [place], [place] [address] [place] [address] Care Team Providers Care Chief Librarian Work With Blind Name Role Phone Colton SILVEIRA MD, Abiodun Rushing Primary Care Provider Reason for Visit * Auth/Cert Specialty Diagnoses / Procedures Referred By Lyla chaney Referred To Contact Home Health Services / [facility] Care [address] [place] [address] [place] [address] Phone: tel: fax: Referral ID Status Reason Start Date Expiration Date Visits Re quested Visits Authorized [id number] 1 1 Encounter Details Date Type Department Care Team (Late st Contact Info) Description 02/02/2022 Home Care Visit [facility] Home Care [address] [place] [address] [place] [address] Cindy Nguyễn, RN CASE COMMUNICATION Social History Tobacco Use Types [...] Coronavirus/COVID-19? No / Unsure 01/10/2022 11:53 AM CABLE ASSEMBLER AND SWAGER documented as of this encounter Functional Status [...] st Contact Info) Description 03/14/2024 11:45 AM CABLE ASSEMBLER AND SWAGER Office Visit [facility]-[address] [phone] Marvin Mckeon MD [facility] [place] [address] 03/20/2024 11:30 AM CABLE ASSEMBLER AND SWAGER Office Visit [facility] Group Family Medicine - [address] [place] [address] Abiodun Segura II, MD [address] [place] [address] documented as of this encounter Visit Diagnoses Not on filedocumented in this encounter Additional Health Concerns Assessment Noted Time PHQ-9 Depression Total Score: 0 03/08/19 9:30 AM CABLE ASSEMBLER AND SWAGER documented as of this encounter Care Teams Chief Librarian Work With Blind Relationship Specialty Start Date End Date Abiodun Segura II, MD [address] [place] [address] PCP - General FAMILY PRACTICE 03/09/21 documented as of this encounter
--- OUTSIDE RECORDS SUMMARY | 2024-03-02 22:26 | XMS_ITS | Encounter Summary ---
Author Organization [facility] Address [address] [place] [address]. [place] [address] [place] [address] Care Team Providers Care Irradiated Fuel Handler Name Role Phone Colton SILVEIRA MD, Abiodun Rushing Primary Care Provider Reason for Visit * Reason Onset Date Comments Medication Request 02/14/2022 Encounter Details Date Type Department Care Team (Late st Contact Info) Description 02/14/2022 Telephone [facility] Family Medicine - [place] [address] [place] [address] Abiodun Segura II, MD [address] [place] [address] Medication Request Social History Tobacco [...] Coronavirus/COVID-19? No / Unsure 02/15/2022 1:18 PM TILE LAYER documented as of this encounter Functional Status [...] Progress Notes * Sydney Cobos MA - 02/14/2022 11:19 AM CST Called patient and got her scheduled with Shira at 3:40 tomorrow afternoon to check her urine LAYER * Debra Cruz - 02/14/2022 8:46 AM CST Patient calling in requesting an prescription for an UTI. Patient bleieves she got an UTI from previous medication taken. Patient is requesting a call back. Patient was informed that prescriptions are no longer provided unless seen in office first. [facility] LAYER documented in this encounter Plan of Treatment Upcoming Encounters Date Type Department Care Team (Late st Contact Info) Description 03/14/2024 11:45 AM TILE LAYER Office Visit [facility] [address] Marvin Mckeon MD [address] [facility] [address] [place] [address] 03/20/2024 11:30 AM TILE LAYER Office Visit [facility] Family Medicine - [place] [address] [place] [phone] Abiodun eSgura II, MD [address] [place] [address] documented as of this encounter Visit Diagnoses Not on filedocumented in this encounter Additional Health Concerns Assessment Noted Time PHQ-9 Depression Total Score: 0 03/08/19 9:30 AM TILE LAYER documented as of this encounter Care Teams Irradiated Fuel Handler Relationship Specialty Start Date End Date Abiodun Segura II, MD [address] [place] [address] PCP - General FAMILY PRACTICE 03/09/21 documented as of this encounter
--- OUTSIDE RECORDS SUMMARY | 2024-03-02 22:26 | XMS_ITS | Encounter Summary ---
Author Organization [facility] Address [address] [place] [address]. [place], [place] [address] [place] [address] Care Team Providers Care Ct Scan Tech Name Role Phone Colton SILVEIRA MD, Abiodun Rushing Primary Care Provider Encounter Details Date Type Department Care Team (Latest Contact Info) Description 01/25/2022 Scan HEALTH INFO SRVCS Scanned, Doc Med [...] Coronavirus/COVID-19? No / Unsure 01/10/2022 11:53 AM BOOKING AGENT documented as of this encounter Functional Status [...] st Contact Info) Description 03/14/2024 11:45 AM BOOKING AGENT Office Visit [facility]-[address] [address] Marvin Mckeon MD [facility] [address] [place] [address] 03/20/2024 11:30 AM BOOKING AGENT Office Visit [facility] Family Medicine - [address] [phone] Abiodun Segura II, MD [address] [place] [address] documented as of this encounter Visit Diagnoses Not on filedocumented in this encounter Additional Health Concerns Assessment Noted Time PHQ-9 Depression Total Score: 0 03/08/19 22 9:30 AM BOOKING AGENT documented as of this encounter Care Teams Ct Scan Tech Relationship Specialty Start Date End Date Abiodun Segura II, MD 100 [place] [address] PCP - General FAMILY PRACTICE 03/09/21 documented as of this encounter
--- OUTSIDE RECORDS SUMMARY | 2024-03-02 22:26 | XMS_ITS | Encounter Summary ---
Author Organization [facility] Address [address] [place] [address]. [place], [place] [address] [place] [address] Care Team Providers Care Rivet Flunky Name Role Phone Colton SILVEIRA MD, Abiodun Rushing Primary Care Provider Encounter Details Date Type Department Care Team (Latest Contact Info) Description 01/08/2022 Travel Social History Tobacco Use Types Packs/Day [...] Coronavirus/COVID-19? No / Unsure 01/08/2022 5:16 PM CORPSMAN documented as of this encounter Functional Status [...] st Contact Info) Description 03/14/2024 11:45 AM CORPSMAN Office Visit [facility]-[address] [address] Marvin Mckeon MD [facility] [address] [facility] [place] [address] 03/20/2024 11:30 AM CORPSMAN Office Visit [facility] Family Medicine [facility] [address] [place] [phone] Abiodun Segura II, MD [address] [place] [phone] documented as of this encounter Visit Diagnoses Not on filedocumented in this encounter Additional Health Concerns Infection Onset Date Last Indicated Resolved Time COVID-19 Rule Out 01/08/2022 01/08/2022 01/08/2022 6:50 PM CORPSMAN Assessment Noted Time PHQ-9 Depression Total Score: 0 03/08/19 9:30 AM CORPSMAN documented as of this encounter Care Teams Rivet Flunky Relationship Specialty Start Date End Date Abiodun Segura II, MD 100 [place] [address] PCP - General FAMILY PRACTICE 03/09/21 documented as of this encounter
--- OUTSIDE RECORDS SUMMARY | 2024-03-02 22:26 | XMS_ITS | Encounter Summary ---
Author Organization [facility] Address [address] [place] [address]. [place] [address] [place] [address] Care Team Providers Care Crane Follower Name Role Phone Colton SILVEIRA MD, Abiodun Rushing Primary Care Provider Encounter Details Date Type Department Care Team (Late st Contact Info) Description 01/03/2022 2:24 PM INVENTORY CONTROL SUPERVISOR - 01/03/2022 11:59 PM [facility] Hospital Encounter [facility] [address] [place], [place] [phone] Abiodun Segura II, MD [address] [place] [address] Discharge Disposition: Home or Self Care [...] Coronavirus/COVID-19? No / Unsure 01/01/2022 7:00 PM INVENTORY CONTROL SUPERVISOR documented as of this encounter Functional Status [...] with long-term current use of insulin ([facility]) Inject 3 mg into the skin [...] once daily 30 tablet 5 05/31/2021 01/07/20 omeprazole 40 MG capsuleIndications: Esophagitis due to [...] Contact Info) Description 03/14/2024 11:45 AM INVENTORY CONTROL SUPERVISOR Office [facility] [address] Marvin Mckeon MD [address] [facility] [address] [place] [phone] 03/20/2024 11:30 AM INVENTORY CONTROL SUPERVISOR Office Visit [facility] Family Medicine [facility] [address] [place] [phone] Abiodun Segura II, MD 100 [place], [place] [phone] documented as of this encounter Procedures Procedure Name Priority Date/Time Associated Diagnosis Comments COMPREHENSIVE METABOLIC PANEL Routine 01/03/2022 12:00 PM 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, neck, and scalp except eye, blister, infected C-REACTIVE PROTEIN Routine 01/03/2022 12 :00 PM INVENTORY CONTROL SUPERVISOR Bullosis diabeticorum (CMS/HCC H[facility]/HCC) Face, neck, and scalp except eye, blister, infected CBC W/DIFF AUTOMATED Routine 01/03/2022 12:00 PM INVENTORY CONTROL SUPERVISOR Bullosis diabeticorum (CMS/HCC HHS/HCC) Face, neck, and scalp except eye, blister, infected CK (CPK) Routine 01/03/2022 12:00 PM INVENTORY CONTROL SUPERVISOR Bullosis diabeticorum (CMS/HCC HHS/HCC) Face, neck, and scalp except eye, blister, infected documented in this encounter Results * (ABNORMAL) COMPREHENSIVE METABOLIC PANEL (01/03/2022 12:00 PM INVENTORY CONTROL SUPERVISOR) Pathologist [facility] GLUCOSE 299(H) 70 - 99 MG/DL 01/03/2022 2:52 PM [facility] BUN 27(H) 7 - 18 MG/DL 01/03/2022 2:52 PM [facility] CREATININE S/P/B 1.06(H) 0.55 - 1.02 MG/DL 01/03/2022 2:52 PM [facility] SODIUM S/P/B 136 136 - 145 MMOL/L 01/03/2022 2:52 PM [facility] POTASSIUM S/P/B 4.7 3.5 - 5.1 MMOL/L 01/03/2022 2:52 PM [facility] CHLORIDE S/P/B 102 100 - 108 MMOL/L 01/03/2022 2:52 PM [facility] CO2 25.0 21 - 32 MMOL/L 01/03/2022 2:52 PM [facility] CALCIUM S/P/B 9.5 8.5 - 10.1 MG/DL 01/03/2022 2:52 PM [facility] BILIRUBIN TOTAL S/P/B 0.5 0.2 - 1.2 MG/DL 01/03/2022 2:52 PM [facility] TOTAL PROTEIN S/P/B 8.8(H) 6.4 - 8.2 G/DL 01/03/2022 2:52 PM [facility] ALBUMIN S/P/B 3.4 3.4 - 5.0 G/DL 01/03/2022 2:52 PM [facility] AST 21 15 - 37 U/L 01/03/2022 2:52 PM [facility] ALT 41 14 - 55 U/L 01/03/2022 2:52 PM [facility] ALKALINE PHOSPHATASE S/P/B 166(H) 50 - 136 U/L 01/03/2022 2:52 PM [facility] ANION GAP 9.0 5 - 15 MMOL/L 01/03/2022 2:52 PM [facility] BUN CREATININE RATIO 25.5 6 - 26 01/03/2022 2:52 PM [facility] A/G RATIO 0.6(L) 1.0 - 2.0 RATIO 01/03/2022 2:52 PM [facility] GFR ESTIMATE 64(L) >90 ML/MIN/1.7 3 M2 01/03/2022 2:52 PM [facility] Comment: NOTE: eGFR is not calculated for patients <18 years of age. This is an estimated GFR calculation using the new CKD EPI creatinine equation without race and so does not require a correction factor for race. This estimated GFR should not be used for calculating drug doses. 01/03/2022 12:0 0 PM INVENTORY CONTROL SUPERVISOR Abiodun Segura II, MD LABORATORY Final R esult [facility] [address] [place] [place] [address], [place] [phone] * (ABNORMAL) CBC W/DIFF AUTOMATED (01/03/2022 12:00 PM INVENTORY CONTROL SUPERVISOR) [facility] WBC 10.1 4.4 - 11.0 x10'3/uL 01/03/2022 2:33 PM INVENTORY CONTROL SUPERVISOR [facility] RBC 3.82(L) 4.50 - 5.10 x10'6/uL 01/03/2022 2:33 PM [facility] HGB 11.5(L) 12.3 - 15.3 G/DL 01/03/2022 2:33 PM [facility] HCT 33.9(L) 35.9 - 44.6 % 01/03/2022 2:33 PM [facility] MCV 88.7 80.0 - 96.0 FL 01/03/2022 2:33 PM [facility] MCH 30.1 25.3 - 30.9 PG 01/03/2022 2:33 PM [facility] MCHC 33.9 31.0 - 34.1 G/DL 01/03/2022 2:33 PM [facility] RDW 13.2 12.4 - 15.1 % 01/03/2022 2:33 PM [facility] PLT 282 151 - 353 x10'3/uL 01/03/2022 2:33 PM [facility] MPV 11.7 9.6 - 12.0 FL 01/03/2022 2:33 PM [facility] RBC MORPHOLOGY NORMAL 01/03/2022 2:33 PM [facility] PLT MORPH. NORMAL 01/03/2022 2:33 PM [facility] WBC MORPHOLOGY NORMAL 01/03/2022 2:33 PM INVENTORY CONTROL SUPERVISOR [facility] LYMPHOCYTES % 26.4 15.8 - 45.0 % 01/03/2022 2:33 PM INVENTORY CONTROL SUPERVISOR [facility] NEUTROPHILS % 66.6 42.1 - 71.9 % 01/03/2022 2:33 PM INVENTORY CONTROL SUPERVISOR [facility] MONOCYTES % 4.1(L) 5.7 - 12.5 % 01/03/2022 2:33 PM INVENTORY CONTROL SUPERVISOR [facility] EOSINOPHILS 2.0 0.0 - 5.6 % 01/03/2022 2:33 PM INVENTORY CONTROL SUPERVISOR [facility] BASOPHILS 0.7 0.0 - 1.3 % 01/03/2022 2:33 PM INVENTORY CONTROL SUPERVISOR [facility] ABS. NEUTROPHILS 6.75(H) 1.40 - 6.00 x10'3/uL 01/03/2022 2:33 PM INVENTORY CONTROL SUPERVISOR [facility] IMMATURE GRANS % 0.2 0.0 - 0.5 % 01/03/2022 2:33 PM [facility] ABS. LYMPHOCYTES 2.67 0.80 - 4.70 x10'3/uL 01/03/2022 2:33 PM [facility] 01/03/2022 12:0 0 PM INVENTORY CONTROL SUPERVISOR Abiodun Segura II, MD LABORATORY Final R esult [facility] [address] [place] [address], * (ABNORMAL) C-REACTIVE PROTEIN (01/03/2022 12:00 PM INVENTORY CONTROL SUPERVISOR) C-REACTIVE PROTEIN 2.10(H) <0.9 mg/dL 01/03/2022 2:52 PM INVENTORY CONTROL SUPERVISOR [facility] 01/03/2022 12:0 0 PM INVENTORY CONTROL SUPERVISOR Abiodun Segura II, MD LABORATORY Final R esult Performing Organization Address City/[facility]/ZIP Co de Phone Number [facility] [address] [place] [address], [place] [phone] * CK (CPK) (01/03/2022 12:00 PM INVENTORY CONTROL SUPERVISOR) CPK 110 26 - 192 U/L 01/03/2022 2:52 PM INVENTORY CONTROL SUPERVISOR [facility] 01/03/2022 12:0 0 PM INVENTORY CONTROL SUPERVISOR Abiodun Segura II, MD LABORATORY Final R esult Performing Organization Address City/[facility] Co de Phone Number [facility] [address] [place] [address], [place] [phone] documented in this encounter Visit Diagnoses 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
--- OUTSIDE RECORDS SUMMARY | 2024-03-02 22:26 | XMS_ITS | Encounter Summary ---
Author Organization [facility] Address [address] [place] [address]. [place], [place] [address] [place] [address] Care Team Providers Care Typing Bookkeeper Name Role Phone Colton SILVEIRA MD, Abiodun Rushing Primary Care Provider Reason for Visit * Auth/Cert Specialty Diagnoses / Procedures Referred By Lyla chaney Referred To Contact Home Health Services / [facility] HOME HEALTH [facility] Home Care [address] [place] [address] [place] [address] Phone: tel: fax: Referral ID Status Reason Start Date Expiration Date Visits Re quested Visits Authorized [id number] 1 1 Encounter Details Date Type Department Care Team (Latest Contact Info) Description 02/03/2022 9:30 AM SENIOR APPLICATIONS ARCHITECT Home Care Visit [facility] Home [address] [place] [address] Mauricio Abbott, RN [phone] (Work) SN OASIS DISCHARGE/ASSESSMENT Social History Tobacco Use Types Packs/Day Years [...] In the last 10 days, have yo tracy been in contact with someone who was confirmed or suspected to have Coronavirus/COVID-19? No / Unsure 01/10/2022 11:53 AM SENIOR APPLICATIONS ARCHITECT documented as of this encounter Last Filed Vital Signs Vital Sign Reading Time Taken Comments Blood Pressure 126/74 02/03/2022 10:00 AM SENIOR APPLICATIONS ARCHITECT Pulse 78 02/03/2022 10:00 AM SENIOR APPLICATIONS ARCHITECT Temperature 36.6 ??C (97.9 ??F) 02/03/2022 10:[address] Respiratory Rate 18 02/03/2022 10:00 AM SENIOR APPLICATIONS ARCHITECT Oxygen Saturation 98% 02/03/2022 10:00 AM SENIOR APPLICATIONS ARCHITECT Inhaled Oxygen Concentration - - Weight - [...] Contact Info) Description 03/14/2024 11:45 AM SENIOR APPLICATIONS ARCHITECT Office Visit [facility]-[address] [address] Marvin Mckeon MD [address] [facility] [address] [place], [place] [phone] 03/20/2024 11:30 AM SENIOR APPLICATIONS ARCHITECT Office Visit [facility] Family Medicine - [place] [address] [place] [phone] Abiodun Segura II, MD [address] [place] [address] documented as of this encounter Visit Diagnoses Not on filedocumented in this encounter Additional Health Concerns Assessment Noted Time PHQ-9 Depression Total Score: 0 03/08/19 9:30 AM SENIOR APPLICATIONS ARCHITECT documented as of this encounter Home Health Visit - Care Plan Visit Details Visit Type -SN - OASIS Disch arge Discipline -Correction Problems Problem Description Start Date Status Goals Interventions Pain/Physical Discomfort Disciplines: SN Patient is experiencing pain/physical discomfort. 12/27/2021 Resolved on 02/03/2022 1 goal linked to scheduled/documen rock intervention 2 goal interventions scheduled/documen rock in this visit Collaboration of Care Disciplines: SN Collaboration for safe care. 12/27/2021 Resolved on 02/03/2022 5 goals linked to scheduled/documen rock interventions 11 goal interventions scheduled/documen rock in this visit Fall Precautions Disciplines: SN Patient at risk for falls or has had recent fall occurrence(s). 12/27/2021 Resolved on 02/03/2022 1 goal linked to scheduled/documen rock intervention 3 goal interventions scheduled/documen rock in this visit Learning/Teachi ng Needs - IV Therapy Disciplines: SN Teaching and learning needs for performing home IV therapy. 12/27/2021 Resolved on 02/03/2022 1 goal linked to scheduled/documen rock intervention 6 goal interventions scheduled/documen rock in this visit Learning/Teachi ng Needs - Diabetes Disciplines: SN Learning and teaching needs associated with diagnosis. 12/27/2021 Resolved on 02/03/2022 1 goal linked to scheduled/documen rock intervention 3 goal interventions scheduled/documen rock in this visit Infection Prevention - Diabetes Disciplines: SN Risk for infection related to diabetes. 12/27/2021 Resolved on 02/03/2022 1 goal linked to scheduled/documen rock intervention 3 goal interventions scheduled/documen rock in this visit Wound Management Disciplines: SN Skin integrity deficit related to: surgical wound wound. Location/site: right foot 12/27/2021 Resolved on 02/03/2022 1 goal linked to scheduled/documen rock intervention [...] pain management plan by 01/31/22. Pain/Physical Discomfort Completed Yes Hosptial Readmission Reduction Description: Hospital Readmission Reduction - Low Risk (0-6 risk factors). Patient's risk number is 6. Hospital Readmission will be avoided during the first 60-day episode of Homecare through frequency of assessment visits Collaboration of Care Completed Yes Patient safety met through collaboration for safe care. Description: Clinicians will communicate patient care and safety needs during episode of care through 01/31/22. Collaboration of Care Completed Yes Nutritional Status for Optimal Health Description: Patient will demonstrate adequate nutritional status as evidenced by stabilization of weight and intake of required nutrients for optimal health and functioning by 01/31/22. Collaboration of Care Completed Yes Patient verbalizes understanding of medication regimen Description: Patient will verbalize understanding of medication regimen by 01/03/22. Collaboration of Care Completed Yes Patient meets homebound requirements. Description: Patient meets [...] Yes Mobility Self-care . Collaboration of Care Completed Yes Patient/caregiver maintains a safe environment. Description: Patient/caregiver will demonstrate ability to maintain a safe environment without injuries/falls by 01/31/22. Fall Precautions Completed Yes Patient/caregiver demonstrates ability to safely perform and/or administer IV flush Description: - Caregiver and will demonstrate ability to safely perform administration of IV medications by 12/27/21. - Caregiver and will demonstrate ability to correctly perform flushing technique by 12/27/21. Learning/Teaching Needs - IV Therapy Completed Yes Patient demonstrates adequate knowledge of diabetes monitoring and treatment. Description: - Patient/caregiver will demonstrate adequate knowledge of diabetes as evidenced by the ability to perform blood sugar monitoring; care of feet, skin, and eyes; signs/symptoms of altered glycemic status states; and their treatment by 01/31/22. - Goal blood sugars to remain WNL. Learning/Teaching Needs - Diabetes Completed Yes Patient remains free from signs and symptoms of infections. Description: Patient will remain free from infections and verbalize methods to prevent infections and how to perform foot care by 01/03/22. Infection Prevention - Diabetes Completed Yes Patient integumentary care needs met without signs/symptoms of complications Description: - Wound(s) will heal without complications by 01/31/22. - Patient and Caregiver will demonstrate wound care procedure and report complications by 01/31/22. - Control of drainage and prevention with early detection of infection for non-healing wounds by 01/31/22. - Incision healed without signs of infection by 01/31/22. Wound Management Completed Yes Interventions Intervention Associated Problem/Goal Status Variance Visit [...] for safe care. Completed Next visit scheduled NA Skilled Assessment Risk for Injury Description: Evaluate [...] of medication regimen Completed Home medication management discussed with patient. Patient verbalizes ability to perform safe home medication administration. [...] infection .?? Results to Dr Segura fax [phone] and IV care fax [phone]. Problem:Learning/Tea charisse Needs - IV Therapy Goal:Patient/caregiv er demonstrates ability to safely perform and/or administer IV flush Completed na IV Administration Description: Skilled nurse and Caregiver [...] safely perform and/or administer IV flush Completed PICC line removed today without difficulty, and pressure bandage applied. Patient tolerated well. Instruct Diabetes Description: Instruct Patient in disease [...] when to notify HH, physician, or EMS.Patient verbalizes knowledge of disease process, causative factors, complication, and [...] diabetes monitoring and treatment. Completed Daily log discussed with Patient . Patient verbalizes ability to perform blood glucose monitoring. Blood Glucose Monitoring Description: - Patient to perform blood sugar testing and record in daily log. Instruct to notify physician ambulatory care nurse of fasting blood sugar if <70mg/dl or [...] Completed documented in this encounter Care Teams Typing Bookkeeper Relationship Specialty Start Date End Date Abiodun Segura II, MD [address] [place] [id number] PCP - General FAMILY PRACTICE 03/09/21 documented as of this encounter
--- OUTSIDE RECORDS SUMMARY | 2024-03-02 22:27 | XMS_ITS | Encounter Summary ---
Author Organization [facility] Address [address] [place] [address]. [place], [place] [id number] [place] [id number] Care Team Providers Care Pe Manager Name Role Phone Colton SILVEIRA MD, Abiodun Rushing Primary Care Provider Reason for Visit * Auth/Cert Specialty Diagnoses / Procedures Referred By Lyla chaeny Referred To Contact Home Health Services / [facility] Home Care [address] [place] [address] [place] [address] Phone: tel: fax: Referral ID Status Reason Start Date Expiration Date Visits Re quested Visits Authorized [id number] 1 1 Encounter Details Date Type Department Care Team (Latest Contact Info) Description 12/27/2021 9:30 AM QUALITY CONTROL ASSOCIATE Home Care Visit [facility] Home [address] [place] [address] [place] [address] Mauricio Abbott, RN [phone] (Work) SN OASIS START OF CARE Social History Tobacco Use Types Packs/Day Years [...] Coronavirus/COVID-19? No / Unsure 01/01/2022 7:00 PM QUALITY CONTROL ASSOCIATE documented as of this encounter Last Filed Vital Signs Vital Sign Reading Time Taken Comments Blood Pressure 114/74 12/27/2021 9:31 AM QUALITY CONTROL ASSOCIATE Pulse 90 12/27/2021 9:29 AM QUALITY CONTROL ASSOCIATE Temperature 36 ??C (96.8 ??F) 12/27/2021 9:29 AM QUALITY CONTROL ASSOCIATE Respiratory Rate 18 12/27/2021 9:29 AM QUALITY CONTROL ASSOCIATE Oxygen Saturation 100% 12/27/2021 9:29 AM QUALITY CONTROL ASSOCIATE Inhaled Oxygen Concentration - - Weight - [...] documented in this encounter Progress Notes * Mauricio Abbott RN - 12/27/2021 3:09 PM [facility]STTer[facility]: [facility] [place] Referrals to other disciplines needed: No Reason for Services: IV therapy, Diabetic wound infection Past Medical History: DM, HTN, HLD, neuropathy, left charcot foot Patient was IP at [facility] for wound infection to right 1st and 2nd toes, and had bone biopsy completed on both. Sutures intact to sites with bandage applied. Patient will receive IV Daptomycin every 24hrs IVP and Cefepimeevery 8hrs via eclipse ball via PICC to [facility]. Scheduled completion of antibiotics is around 02/02. She lives in clean home with and daughter, and they will completed antibiotic infusions. Family was educated today on administration process and both and daughter demonstrated very well. PICC dressing changed today, and patient will be SN 1w6 for PICC care and labs. Biopsy sites are closed with sutures, and family is independent with applying dry bandage as needed. ITY CONTROL ASSOCIATE documented in this encounter Plan of Treatment Upcoming Encounters Date Type Department Care Team (Late st Contact Info) Description 03/14/2024 11:45 AM QUALITY CONTROL ASSOCIATE Office Visit [facility] [id number] Marvin Mckeon MD [facility] [address] [place] [address] 03/20/2024 11:30 AM QUALITY CONTROL ASSOCIATE Office Visit [facility] - [place] [address] [place] [phone] Abiodun Segura II, MD [address] [place] [address] documented as of this encounter Visit Diagnoses Not on filedocumented in this encounter Additional Health Concerns Assessment Noted Time PHQ-9 Depression Total Score: 0 03/08/19 22 9:30 AM QUALITY CONTROL ASSOCIATE documented as of this encounter Home Health Visit - Care Plan Visit Details Visit Type -SN - OASIS Start of Care Discipline -Senior Care Problems Problem Description Start Date Status Goals Interve ntions Pain/Physical Discomfort Disciplines: SN Patient is experiencing pain/physical discomfort. 12/27/2021 Active 1 goal linked to scheduled/documen rock intervention 2 goal interventions scheduled/documen rock in this visit Collaboration of Care Disciplines: SN Collaboration for safe care. 12/27/2021 Active 5 goals linked to scheduled/documen rock interventions 12 goal interventions scheduled/documen rock in this visit [...] safe care. Completed Next visit planning for 01/03/22. Skilled Assessment Risk for Injury Description: Evaluate patient's home environment for potential safety risks, and educate Patient on identified safety risks. Problem:Collaboratio n of Care Goal:Patient safety met through collaboration for safe care. Completed Instruct Disaster/Evacuation Plan Description: Instruct in planning and execution of disaster/evacuation plan. Assist Patient in development or revision of plan as indicated. Problem:Collaboratio n of Care Goal:Patient safety met [...] infection .?? Results to Dr Segura fax [phone] and IV care fax [phone]. Problem:Learning/Tea charisse Needs - IV Therapy Goal:Patient/caregiv er demonstrates ability to safely perform and/or administer IV flush Completed Due 01/03 IV Administration Description: Skilled nurse and Caregiver [...] to notify home care agency and/or physician. Problem:Learning/Hansa charisse Needs - IV Therapy Goal:Patient/caregiv er [...] weekly and as needed for soiled/loosened dressing. Problem:Learning/Hansa charisse Needs - IV Therapy Goal:Patient/caregiv er demonstrates ability to safely perform and/or administer IV flush Completed Dressing change to right arm performed by SN. Old dressing removed. Well tolerated by patient.. Site Cleanse with chloraprep. Patted dry. Applied Tegaderm + pad. Secured with transparent film. See Wound Assessment form for [...] to notify HH, physician, or EMS.Patient verbalizes ability to perform blood glucose monitoring and maintenance of a daily log. Instruct Daily Log Description: - SN to [...] in daily log. Instruct to notify physician product support consultant of fasting blood sugar if <70mg/dl or [...] new meter as needed. QC testing done. Problem:Learning/Tea charisse Needs - Diabetes Goal:Patient demonstrates adequate [...] Completed documented in this encounter Care Teams Pe Manager Relationship Specialty Start Date End Date Abiodun Segura II, MD [address] [place] [address] PCP - General FAMILY PRACTICE 03/09/21 documented as of this encounter
--- OUTSIDE RECORDS SUMMARY | 2024-03-02 22:27 | XMS_ITS | Encounter Summary ---
Author Organization [facility] Address [address] [place] [address]. [place], [place] [id number] [place] [address] Care Team Providers Care Arboreal Scientist Name Role Phone Colton SILVEIRA MD, Abiodun Rushing Primary Care Provider Reason for Referral * Imaging (Routine) - Closed Specialty Diagnoses / Procedures Referred By Lyla t Referred To Contact RADIOLOGY Diagnoses Right arm pain Procedures USV JOANIE DUPLEX UP EXT RT Keisha John FNP-BC Referral ID Status Reason Start Date Expiration Date Visits Re quested Visits Authorized [id number] Closed 01/02/2022 02/02/2023 1 1 BLOWER * Imaging (Emergency) - Closed Specialty Diagnoses / Procedures Referred By Lyla chaney Referred To Contact RADIOLOGY Procedures CTA CHEST PE PROTOCOL Keisha John FNP-BC Referral ID Status Reason Start Date Expiration Date Visits Re quested Visits Authorized [id number] Closed 01/01/2022 01/01/2023 1 1 BLOWER Reason for Visit * Reason Comments Picc Line Problem Encounter Details Date Type Department Care Team ([facility] st Contact Info) Description 01/01/2022 7:42 PM SOOT BLOWER - 01/02/2022 12:57 AM SOOT BLOWER Emergency [facility] Emergency Room [address] [phone] Keisha John, INSTRUMENT REPAIR SPECIALIST- Picc Line Problem Discharge Disposition: Home or Self Care (Routine [...] Coronavirus/COVID-19? No / Unsure 01/01/2022 7:00 PM SOOT BLOWER documented as of this encounter Last Filed Vital Signs Vital Sign Reading Time Taken Comments Blood Pressure 145/89 01/01/2022 10:06 PM SOOT BLOWER Pulse 86 01/01/2022 10:06 PM SOOT BLOWER Temperature 36.4 ??C (97.6 ??F) 01/01/2022 7:02 PM CS T Respiratory Rate 20 01/01/2022 10:06 PM SOOT BLOWER Oxygen Saturation 100% 01/01/2022 10:06 PM SOOT BLOWER Inhaled Oxygen Concentration - - Weight 83.5 kg (184 lb) 01/01/2022 7:02 PM SOOT BLOWER Height 167.6 cm (5' 6 ) 01/01/2022 7:02 PM SOOT BLOWER Body Mass Index 29.7 01/01/2022 7:02 PM SOOT BLOWER documented in this encounter Functional Status * [...] this encounter Discharge Instructions * Discharge Instructions* JESSICA Lambert - 01/02/2022 12:29 AM SOOT BLOWER Please continue your medications as prescribed. Be sure to call Dr Segura for follow up first thing in the morning. Be sure to return to outpatient scheduling at [facility] for your ultrasound of your arm tomorrow morning at 10:30AM BLOWER BLOWER * Attachments The following attachments cannot be sent through Care Everywhere. * Muscle and Bone Pain Discharge Instructions (Kyrgyz) * Opioids for Short-Term Treatment of Pain ED (Kyrgyz) documented in this encounter Medications at Time [...] of insulin ([facility]) Inject 3 mg into the skin [...] 05/06/19 23 documented as of this encounter ED Notes * Keisha John, INSTRUMENT REPAIR SPECIALIST-BC - 01/01/2022 8:51 PM CST History Chief Complaint Patient presents with ??? Picc Line Problem Lena Youngblood is a 51-year-old female who presented to the ED with c/o right arm and side/chestpain that has been present for the past few days. Pt states home health nurse adjusted picc line onthe 8th after it was initially placed on 12/23/21. She reports she has had pain since. Pt denies discharge or redness at the site of insertion. Pt is concerned hat the line may be displaced. Pt reports that she has had nausea and decreased appetite since being discharged home. She reports she has intermittent dizziness most noted when changing position. She is currently receiving home IV Daptomycin every 24hrs IVP and Cefepime every 8hrs for diabetic wound infection, charcot foot, osteomyelitis of the right great and second toes. Past Medical History: Diagnosis Date ??? Arthritis ??? Charcot foot due to diabetes mellitus (CMS/HCC) LEFT FOOT ??? Constipation ??? COVID-19 ??? Diabetes mellitus (CMS/HCC) ??? Diabetic neuropathy (CMS/HCC) ??? High cholesterol ??? Hypertension ??? 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 UTI (urinary tract infection) ??? Vision decreased blind right eye, poor vision left eye Prior to Admission medications Medication Sig Start Date End Date Taking? Authorizing Provider acidophilus (FLORAJEN) capsule Take 1 capsule by mouth 2 (two) times daily. 12/26/21 Yes ELLEN Johnson amLODIPine 10 MG tablet Take 1 tablet (10 mg total) by mouth daily. Patient taking differently: Take 10 mg by mouth nightly. 09/24/20 Yes Abiodun Segura II, MD ceFEPIme 2 g in sodium chloride 0.9 % SOLN 100 mL Inject 2 g into the vein every 8 (eight) hours for 38 days. 12/26/21 02/02/22 Yes ELLEN Johnson cyclobenzaprine 10 MG tablet Take 1 tablet (10 mg total) by mouth 3 (three) times daily as needed. 08/17/21 Yes CYNTHIA Babb DAPTOmycin 450 mg in sodium chloride 0.9 % SOLN 100 mL Inject 450 mg into the vein daily for 37 days. 12/27/21 02/02/22 Yes ELLEN Johnson Heparin Sodium, Porcine, (HEPARIN SODIUM FLUSH IV) 5 mLs by IVP route daily. Indications: IV patency 12/27/21 Yes Doc [facility] Abstract HYDROcodone-acetaminophen (NORCO) 5-325 MG tablet Take 1 tablet by mouth every 6 (six) hours as needed. Indications: Acute Pain < 7 Day Supply 12/26/21 Yes ELLEN Johnson hydrocortisone (HYTONE) 2.5 % ointment Apply 1 Application topically daily as needed. Indications: Rash Apply to face 10/28/21 Yes GENERICPROVIDER, DEFAULT HISTORY hydrOXYzine (ATARAX) 25 MG tablet Take 25-50 mg by mouth nightly at bedtime. Indications: Burning Feeling and Itching 10/28/21 Yes GENERICPROVIDER, DEFAULT HISTORY insulin lispro protamine-insulin lispro (HUMALOG MIX 75/25) (75-25) 100 UNIT/ML Suspension Inject 55 Units into the skin every evening. Yes GENERICPROVIDER, DEFAULT HISTORY insulin lispro protamine-insulin lispro (HUMALOG MIX 75/25) (75-25) 100 UNIT/ML Suspension Inject 65 Units into the skin every morning. Yes GENERICPROVIDER, DEFAULT HISTORY linaCLOtide 145 MCG capsule Take 1 capsule (145 mcg total) by mouth every morning before breakfast.Take on empty stomach at least 30 minutes prior to the first meal of the day. Swallow whole. Do notopen capsule or chew. Patient taking differently: Take 145 mcg by mouth daily as needed. Take on empty stomach at least 30 minutes prior to the first meal of the day. Swallow whole. Do not open capsule or chew. 04/20/21 YesAbiodun Segura II, MD LISINOPRIL 40 MG tablet Take 1 tablet by mouth once daily Patient taking differently: Take 40 mg by mouth daily. 05/31/21 Yes Abiodun Segura II, MD omeprazole 40 MG capsule Take 1 capsule (40 mg total) by mouth in the morning. Patient taking differently: Take 40 mg by mouth daily as needed. 07/14/21 Yes Abiodun Segura II, MD ondansetron 4 MG disintegrating tablet Take 1 tablet (4 mg total) by mouth every 8 (eight) hours asneeded for Nausea. 07/11/21 Yes Mendy Mirza MD simvastatin (ZOCOR) 40 MG tablet TAKE 1 TABLET BY MOUTH AT BEDTIME Patient taking differently: Take 40 mg by mouth nightly at bedtime. 10/04/21 Yes Abiodun Segura II, MD Sodium Chloride Flush (SALINE FLUSH IV) 10 mLs by IVP route daily. Indications: IV patency 12/27/21 Yes Doc [facility] Abstract Dulaglutide (TRULICITY) 3 MG/0.5ML Solution Pen-injector Inject 3 mg into the skin weekly. Patient taking differently: Inject 3 mg into the skin weekly. Fridays03/21/21 Abiodun Segura II, MD Past Surgical History: Procedure Laterality Date ??? [...] Breast Cancer Other cousin 49 Social History Tobacco Use ??? Smoking status: Never ??? Smokeless tobacco: Never Vaping Use ??? Vaping Use: Never used Substance Use Topics ??? Alcohol use: Yes Comment: Rarely ??? Drug use: No Patient's last menstrual period was 10/29/2004 (within months). Review of Systems Constitutional: Positive for appetite change. Negative for fever. Respiratory: Negative for cough, shortness of breath, wheezing and stridor. Cardiovascular: Positive for chest pain. Negative for palpitations and leg swelling. Gastrointestinal: Positive for nausea. Negative for abdominal pain and vomiting. Musculoskeletal: Positive for arthralgias (right arm pain). Neurological: Positive for dizziness. Negative for numbness. All other systems reviewed and are negative. Physical Exam Filed Vitals: 01/01/22 1902 01/01/22 2206 BP: (!) 139/97 (!) 145/89 Pulse: 98 86 Resp: 20 20 Temp: 97.6 ??F (36.4 ??C) TempSrc: Temporal SpO2: 99% 100% Weight: 83.5 kg (184 lb) Height: 5' 6 (1.676 m) Physical Exam Vitals reviewed. Constitutional: Appearance: She is well-developed. Comments: Pt appears tired. HENT: Head: Normocephalic and atraumatic. Right Ear: [...] distress. Breath sounds: Normal breath sounds. No wheezing or rales. Chest: Chest wall: Tenderness (right chest wall tender with palpation) present. Abdominal: General: Bowel sounds are normal. Palpations: Abdomen is soft. Tenderness: There is no abdominal tenderness. Musculoskeletal: General: Tenderness (tenderness with palpation of the right arm near PICC insertion site and following the line of the PICC toward the axilla. No erythema, no edema, no induration, 2+ radial/ulnar pulses, cap refill < 2 secs, sensation intact. ) present. Normal range of motion. Cervical back: Normal range of motion and neck supple. Skin: General: Skin is warm and dry. Findings: No erythema. Comments: PICC site in the right mid upper arm is dry, occlusive, no erythema, no induration, no fluctuance, no added warmth, no streaking, no discharge/drainage. Neurological: Mental Status: She is alert and oriented to person, place, and time. Psychiatric: Behavior: Behavior normal. Thought Content: Thought content normal. Labs Reviewed CBC W/DIFF AUTOMATED - Abnormal; Notable for the following components: Result Value WBC 11.6 (*) RBC 3.75 (*) HGB 11.3 (*) HCT 33.5 (*) All other components within normal limits COMPREHENSIVE METABOLIC PANEL - Abnormal; Notable for the following components: GLUCOSE 184 (*) BUN 24 (*) CREATININE S/P/B 1.05 (*) TOTAL PROTEIN S/P/B 8.7 (*) ALBUMIN S/P/B 3.2 (*) ALKALINE PHOSPHATASE S/P/B 166 (*) A/G RATIO 0.6 (*) GFR ESTIMATE 65 (*) All other components within normal limits TROPONIN, QUANT TROPONIN, QUANT CTA CHEST PE PROTOCOL Final Result by User, [id number] (01/01 2251) EXAMINATION: CTA CHEST WITH CONTRAST CLINICAL HISTORY: Chest pain COMPARISON: CTA chest 07/09/2021, CT abdomen and pelvis 10/29/2021 TECHNIQUE: Computed tomography angiography was performed of the chest after administration of intravenous contrast, 80 mL Isovue-370, according to pulmonary embolism protocol. Additional coronal MIP (maximum intensity projection) images were evaluated. A dose lowering technique was used for this procedure, which may include, but is not limited to, dose reduction technique, automated exposure control, the use of iterative reconstruction, and ALARA (as low as reasonably achievable) / image gently techniques. FINDINGS: No filling defects in the pulmonary arteries to suggest pulmonary embolism. No cardiomegaly. No aortic aneurysm. No pericardial effusion. A right upper extremity PICC terminating at the cavoatrial junction. Unremarkable thyroid. No enlarged lymph nodes. Patent airway. No pleural effusion. No airspace opacity. Limited visualization of the upper abdomen redemonstrates dilatation of the right renal collecting system as seen on priors. Multiple calcified splenic granulomas. No suspicious osseous lesion. IMPRESSION: 1. No evident pulmonary embolism or other acute process in the chest. 2. Dilated right renal collecting system as seen on the prior studies. Referred By: Interpreted By: Americo Arthur MD, 01/01/2022 10:43 PM XR CHEST PORTABLE Final Result by User, [email or web address] (01/01 2018) Exam: Chest x-ray 1947 hours Comparison 12/23/2021 INDICATION: PICC line placement TECHNIQUE: One view FINDINGS: Right PICC line in the low SVC. Heart size and pulmonary vessels are within normal limits. The lungs are clear. IMPRESSION: Line placement. Referred By: Interpreted By: Walter Alvarez MD, 01/01/2022 8:16 PM USV JOANIE DUPLEX UP EXT RT (Results Pending) ED Course Procedures ED Course as of 01/02/22 0040 Sun Jan 01, 20222208--boiler control technician returned page and refused to come in for the study. Dr Barrera, vascular surgeon, paged. [MP] 2210 2010--Dr Barrera returned page and states that the CTA chest should fruit picker machine operator any venous thrombosis.No vascular duplex will be done tonight per vascular surgeon. [MP] [facility] Jan 02, 2022 0015 0015--Discussed results with patient. She declines lovenox injection, but is agreeable to Venous duplex outpatient tomorrow. She is also agreeable to trying a dose of Percocet to help with pain through the night tonight,. She will f/u with PCP tomorrow [MP] ED Course User Index [MP] PEDRO LambertP- Medications oxyCODONE-acetaminophen (PERCOCET) 5-325 MG tablet 1 tablet (has no administration in time range) HYDROcodone-acetaminophen (NORCO) 5-325 MG tablet 1 tablet (1 tablet Oral Given 01/01/222319) iopamidol (ISOVUE-370) 76 % injection 80 mL (80 mLs Intravenous Given 01/01/222222) ceFEPIme (MAXIPIME) 2 g in sodium chloride 0.9 % 100 mL IVPB (0 g Intravenous Infusion Stop Time 01/02/22 0026) Current Discharge Medication List Plan of care discussed with patient. Patient agreeable with plan of care. I have discussed today's findings with the patient and provided information regarding the likely diagnosis. I believe at thistime that the patient has no medical emergency and is appropriate for outpatient management. The patient has been given information regarding their treatment, follow up and concerning symptoms for which they should seek urgent or emergent attention; all questions were answered. I have expressed thethe importance of seeking attention should there be any new, or worsening symptoms or persistence of their condition. The patient is stable at discharge and has verbalized understanding of these instructions. MDM Number of Diagnoses or Management Options Amount and/or Complexity of Data Reviewed Clinical lab tests: ordered and reviewed Tests in the radiology section of CPT??: ordered and reviewed Tests in the medicine section of CPT??: ordered and reviewed Discuss the patient with other providers: yes (Plan of care discussed with MYLES Guevara MD. Plan of care also discussed with Dr Bloom, hospitalist, as the patient was questioning why she wasn't being admitted. Pt does not meet admission criteria at this time. Will be scheduled for outpatient venous duplex tomorrow morning at 10:30AM) Independent visualization of images, tracings, or specimens: yes Patient Progress Patient progress: stable SNOMED CT(R) 1. Right arm pain PAIN IN RIGHT ARM 2. Chest pain CHEST PAIN 3. Osteomyelitis of great toe of right foot (CMS/HCC) OSTEOMYELITIS OF FOREFOOT Disposition: Discharge Follow up instructions: Abiodun Segura II, MD [address] [place] [phone] Call in 1 day call first thing in the morning JESSICA LAMBERT Please excuse any grammatical or spelling errors as this chart was documented using Stion, a dictation software. JESSICA Lambert 01/02/22 0040 Cosigned by Davina Joe MD at 01/02/2022 8:42 PM SOOT BLOWER BLOWER BLOWER Associated attestation - Davina Joe MD - 01/02/2022 8:42 PM SOOT BLOWER I did not evaluate this patient although her care was discussed with me. An ultrasound of her rightupper extremity is indicated to evaluate for possible DVT, however this is not able to be performedthis evening. Patient was offered a Lovenox injection and advised to return tomorrow for the ultrasound, however she declined Lovenox. She understands the importance of evaluating for possible DVT and the risks associated with this potential diagnosis. * SIMRAN Wiggins - 01/01/2022 7:09 PM CST [place], [place] EMERGENCY DEPARTMENT ENCOUNTER Medical Screening Examination Chief Complaint : Picc Line Problem HPI : Lena Youngblood is a 51-year-old female who presents *right arm and side pain, states home health nurse adjusted picc line on the 8th, has had pain since discharge, feels line may be displaced. Home IV Daptomycin every 24hrs IVP and Cefepime every 8hrs for diabetic wound infection, charcot foot, osteomyelitis Vital Signs: Filed Vitals: 01/01/22 1902 BP: (!) 139/97 Pulse: 98 Resp: 20 Temp: 97.6 ??F (36.4 ??C) TempSrc: Temporal SpO2: 99% Weight: 83.5 kg (184 lb) Height: 5' 6 (1.676 m) Physical exam: A brief physical exam was completed to facilitate/expedite patient care. [place] findings include: picc line not visualized in triage, generally unwell in appearance, but nottoxic* Plan: Imaging was ordered to facilitate patient care. SIMRAN Wiggins 01/01/221911 Cosigned by Davina Joe MD at 01/02/2022 8:01 PM SOOT BLOWER BLOWER BLOWER Associated attestation - Davina Joe MD - 01/02/2022 8:01 PM SOOT BLOWER I did not evaluate this patient although her care and evaluation was discussed with me by SUSAN John. * Abby Delacruz RN - 01/01/2022 7:08 PM CST Pt reports pain to PICC line insertion site and surrounding area (R arm). Tender to touch. Pt reports pain radiates down R side of body, across chest and up R jaw. Pt reports PICC line placed on 12/22/21 due to osteomyelitis in R foot. Pt reports increased SOB with exertion and fatigue. Pt reports denies fevers. BLOWER documented in this encounter Plan of Treatment Upcoming Encounters Date Type Department Care Team (Late st Contact Info) Description 03/14/2024 11:45 AM SOOT BLOWER Office Visit [facility] [phone] Marvin Mckeon MD [facility] [address] [place] [phone] 03/20/2024 11:30 AM SOOT BLOWER Office Visit [facility] Family Medicine - [address] [phone] Abiodun Segura II, MD [address] [place] [phone] documented as of this encounter Procedures Procedure Name Priority Date/Time Associated Diagnosis Comments TROPONIN, QUANT STAT 01/01/2022 11:16 PM SOOT BLOWER ECG 12-LEAD STAT 01/01/2022 10:59 PM SOOT BLOWER CTA CHEST PE PROTOCOL STAT 01/01/2022 10:27 PM SOOT BLOWER ECG 12-LEAD STAT 01/01/2022 9:00 PM SOOT BLOWER COMPREHENSIVE METABOLIC PANEL STAT 01/01/2022 8:58 PM SOOT BLOWER CBC W/DIFF AUTOMATED STAT 01/01/2022 8:58 PM SOOT BLOWER TROPONIN, QUANT STAT 01/01/2022 8:58 PM SOOT BLOWER XR CHEST PORTABLE STAT 01/01/2022 8:0 7 PM SOOT BLOWER documented in this encounter Results * USV JOANIE DUPLEX UP EXT RT (01/02/2022 11:06 AM SOOT BLOWER) Anatomical Region Laterality Modality Extremity Vascular Ultraso und 01/02/2022 10:3 1 AM SOOT BLOWER Narrative 01/03/2022 11:33 AM SOOT BLOWER ?VENOUS DUPLEX IMAGING ?RIGHT UPPER EXTREMITY ? VASCULAR LAB Pat.Name: ??LENA YOUNGBLOOD ?Pat.ID: ?[id number] ? St.Date: ?? 01/02/2022 ?Refer.: ??Abiodun Segura ? Exam Time: 10:31:00 AM [...] EXTREMITY VASCULAR LAB Pat.Name: LENA YOUNGBLOOD Pat.ID: [id number] .Date: 01/02/2022 Refer.MD: Abiodun Segura Exam Time: 10:31:00 AM Study Type:MARINO VS Venous Duplex Arm Rt Age: 2 1970,51Y Sex: F Sonogrphr: Zayda Haywood RVT Pat. Stat.:Outpatient Room: STAT History / Clinical:Right [...] Signature> 01/03/2022 11:33 AM Hubert Barrera M.D. [facility] Final Res ult * TROPONIN, QUANT (01/01/2022 11:16 PM SOOT BLOWER) [facility] TROPONIN I HIGH SENSITIVITY 6 <54 ng/L 01/01/2022 11:39 PM SOOT BLOWER [facility] Comment: HIGH DOSES OF BIOTIN, TROPONIN-SPECIFIC AUTOANTIBODIES, AND ANTIBODY THERAPY CONTAINING HAMA MAY INTERFERE WITH THIS TEST RESULT. CORRELATION TO CLINICAL HISTORY AND PRESENTATION RECOMMENDED. 01/01/2022 11:1 6 PM SOOT BLOWER [facility] Center[facility] Final Res ult [facility] [address] [place] [address], * ECG 12 lead (01/01/2022 10:59 PM SOOT BLOWER) 01/01/2022 10:5 9 PM SOOT BLOWER Narrative [facility] (ABENA) RAD - 01/03/2022 5:33 PM SOOT BLOWER [facility] ? [address] [facility] [place] ? Test Date: ?2022-01-01 Pat Name: ? LENA YOUNGBLOOD ?Department: ?? 41 ? Room: ? [id number] Gender: ? Female ? Vp Project: ?? [id number] : ?1970 ? Requested By: KEISHA JOHN Order Number: [id number] ? Reading MD: ?? Marvin Mckeon ? Measurements Intervals ?[place] ? Rate: ? 86 ? P: ?48 NH: ? 187 ?QRS: ?17 QRSD: ? 86 ? T: ?46 QT: ? 369 ? QTc: ?441 ? Interpretive Statements SINUS RHYTHM WITH OCCASIONAL VENTRICULAR PREMATURE COMPLEXES NONSPECIFIC T-WAVE ABNORMALITY Compared to ECG 01/01/2022 21:00:10 No significant changes BLOWER Procedure Note Marvin Mckeon MD - 01/03/[facility] Test Date: 2022-01-01 Pat Name: LENA YOUNGBLOOD Department: 41 Room: [place] [address] Gender: Female Vp Project: [id number] : 1970 Requested By: KEISHA JOHN Order Number: [id number] Reading MD: Marvin Mckeon Measurements Intervals [place] Rate: 86 P: 48 NH: 187 QRS: 17 QRSD: 86 T: 46 QT: 369 QTc: 441 Interpretive Statements SINUS RHYTHM WITH OCCASIONAL VENTRICULAR PREMATURE COMPLEXES NONSPECIFIC T-WAVE ABNORMALITY Compared to ECG 01/01/2022 21:00:10 No significant changes BLOWER us Keisha John INSTRUMENT REPAIR SPECIALIST-BC ECG ORDERABLES Final Res ult [facility] RAD * CTA CHEST PE PROTOCOL (01/01/2022 10:27 PM SOOT BLOWER) Anatomical Region Laterality Modality Chest Computed Tomogra phy 01/01/2022 10:4 3 PM SOOT BLOWER Impressions 01/01/2022 10:50 PM SOOT BLOWER IMPRESSION: 1. ??No evident pulmonary embolism or other acute process in the chest. 2. ??Dilated right renal collecting system as seen on the prior studies. Referred By: ?? Interpreted By: Americo Arthur MD, 01/01/2022 10:43 PM Narrative 01/01/2022 10:50 PM SOOT BLOWER EXAMINATION: CTA CHEST WITH CONTRAST CLINICAL HISTORY: Chest pain COMPARISON: CTA chest 07/09/2021, CT abdomen and pelvis 10/29/2021 TECHNIQUE: Computed tomography angiography was performed of the chest after administration of intravenous contrast, 80 mL Isovue-370, according to pulmonary embolism protocol. Additional coronal MIP (maximum intensity projection) images were evaluated. A dose lowering technique was used for this procedure, which may include, but is not limited to, dose reduction technique, automated exposure control, the use of iterative reconstruction, and ALARA (as low as reasonably achievable) / image gently techniques. FINDINGS: No filling defects in the pulmonary arteries to suggest pulmonary embolism. ??No cardiomegaly. ??No aortic aneurysm. ??No pericardial effusion. ??A right upper extremity PICC terminating at the cavoatrial junction. Unremarkable thyroid. ??No enlarged lymph nodes. Patent airway. ??No pleural effusion. ??No airspace opacity. Limited visualization of the upper abdomen redemonstrates dilatation of the right renal collecting system as seen on priors. ??Multiple calcified splenic granulomas. No suspicious osseous lesion. Procedure Note Americo Arthur MD - 01/01/2022 EXAMINATION: CTA CHEST WITH CONTRAST CLINICAL HISTORY: Chest pain COMPARISON: CTA chest 07/09/2021, CT abdomen and pelvis 10/29/2021 TECHNIQUE: Computed tomography angiography was performed of the chestafter administration of intravenous contrast, 80 mL Isovue-370, accordingto pulmonary embolism protocol. Additional coronal MIP (maximum intensityprojection) images were evaluated. A dose lowering technique was used forthis procedure, which may include, but is not limited to, dose reductiontechnique, automated exposure control, the use of iterativereconstruction, and ALARA (as low as reasonably achievable) / image gentlytechniques. FINDINGS: No filling defects in the pulmonary arteries to suggestpulmonary embolism. No cardiomegaly. No aortic aneurysm. No pericardialeffusion. A right upper extremity PICC terminating at the cavoatrialjunction. Unremarkable thyroid. No enlarged lymph nodes. Patent airway. No pleural effusion. No airspace opacity. Limited visualization of the upper abdomen redemonstrates dilatation ofthe right renal collecting system as seen on priors. Multiple calcifiedsplenic granulomas. No suspicious osseous lesion. IMPRESSION: 1. No evident pulmonary embolism or other acute process in the chest. 2. Dilated right renal collecting system as seen on the prior studies. Referred By: Interpreted By: Americo Arthur MD, 01/01/2022 10:43 PM us Keisha F Gabriel INSTRUMENT REPAIR SPECIALIST-BC CT Final Res ult * ECG 12 lead (01/01/2022 9:00 PM SOOT BLOWER) 01/01/2022 9:00 PM SOOT BLOWER Narrative [facility] (ABENA) RAD - 01/03/2022 3:19 PM SOOT BLOWER ?[facility] ? [address] [place] ? Test Date: ?2022-01-01 Pat Name: ? LENA YOUNGBLOOD ?Department: ?? 41 ? Room: ? [id number] Gender: ? Female ? Vp Project: ?? [id number] : ?1970 ? Requested By: KEISHA JOHN Order Number: [id number] ? Reading MD: ?? Vinaya Jasonkareddy ? Measurements Intervals ?[place] ? Rate: ? 89 ? P: ?46 NH: ? 182 ?QRS: ?12 QRSD: ? 85 ? T: ?80 QT: ? 350 ? QTc: ?428 ? Interpretive Statements SINUS RHYTHM WITH OCCASIONAL VENTRICULAR PREMATURE COMPLEXES NONSPECIFIC T-WAVE ABNORMALITY Compared to ECG 12/16/2021 15:41:56 Ventricular premature complex(es) now present BLOWER Procedure Note Marvin Mckeon MD - 01/03/[address] Test Date: 2022-01-01 Pat Name: LENA YOUNGBLOOD Department: Room: [place] [address] Gender: Female Vp Project: [id number] : 1970 Requested By: KEISHA JOHN Order Number: [id number] Reading MD: Marvin Mckeon Measurements Intervals [place] Rate: 89 P: 46 NH: 182 QRS: 12 QRSD: 85 T: 80 QT: 350 QTc: 428 Interpretive Statements SINUS RHYTHM WITH OCCASIONAL VENTRICULAR PREMATURE COMPLEXES NONSPECIFIC T-WAVE ABNORMALITY Compared to ECG 12/16/2021 15:41:56 Ventricular premature complex(es) now present BLOWER us Keisha John INSTRUMENT REPAIR SPECIALIST-BC ECG ORDERABLES Final Res ult [facility] ([facility]) RAD * TROPONIN, QUANT (01/01/2022 8:58 PM SOOT BLOWER) TROPONIN I HIGH SENSITIVITY 6 <54 ng/L 01/01/2022 9:32 PM SOOT BLOWER [facility] Comment: HIGH DOSES OF BIOTIN, TROPONIN-SPECIFIC AUTOANTIBODIES, AND ANTIBODY THERAPY CONTAINING HAMA MAY INTERFERE WITH THIS TEST RESULT. CORRELATION TO CLINICAL HISTORY AND PRESENTATION RECOMMENDED. 01/01/2022 8:58 PM SOOT BLOWER us Keisha Self Gabriel INSTRUMENT REPAIR SPECIALIST- LABORATORY Final Res ult [facility] [address] [place] [address], [place] [phone] * (ABNORMAL) COMPREHENSIVE METABOLIC PANEL (01/01/2022 8:58 PM SOOT BLOWER) [facility] GLUCOSE 184(H) 70 - 99 MG/DL 01/01/2022 9:32 PM SOOT BLOWER [facility] BUN 24(H) 7 - 18 MG/DL 01/01/2022 9:32 PM SOOT BLOWER [facility] CREATININE S/P/B 1.05(H) 0.55 - 1.02 MG/DL 01/01/2022 9:32 PM SOOT BLOWER [facility] SODIUM S/P/B 136 136 - 145 MMOL/L 01/01/2022 9:32 PM SOOT BLOWER [facility] POTASSIUM S/P/B 4.0 3.5 - 5.1 MMOL/L 01/01/2022 9:32 PM SOOT BLOWER [facility] CHLORIDE S/P/B 106 100 - 108 MMOL/L 01/01/2022 9:32 PM SOOT BLOWER [facility] CO2 24.0 21 - 32 MMOL/L 01/01/2022 9:32 PM SOOT BLOWER [facility] CALCIUM S/P/B 9.7 8.5 - 10.1 MG/DL 01/01/2022 9:32 PM SOOT BLOWER [facility] BILIRUBIN TOTAL S/P/B 0.4 0.2 - 1.2 MG/DL 01/01/2022 9:32 PM SOOT BLOWER [facility] Comment: THIS ASSAY IS NOT RECOMMENDED FOR PATIENTS UNDERGOING TREATMENT WITH ELTROMBOPAG DUE TO THE POTENTIAL FOR FALSELY ELEVATED RESULTS. TOTAL PROTEIN S/P/B 8.7(H) 6.4 - 8.2 G/DL 01/01/2022 9:32 PM SOOT BLOWER [facility] ALBUMIN S/P/B 3.2(L) 3.4 - 5.0 G/DL 01/01/2022 9:32 PM [facility] AST 15 15 - 37 U/L 01/01/2022 9:32 PM [facility] ALT 46 14 - 55 U/L 01/01/2022 9:32 PM [facility] ALKALINE PHOSPHATASE S/P/B 166(H) 50 - 136 U/L 01/01/2022 9:32 PM [facility] ANION GAP 6.0 5 - 15 MMOL/L 01/01/2022 9:32 PM [facility] BUN CREATININE RATIO 22.9 6 - 26 01/01/2022 9:32 PM [facility] A/G RATIO 0.6(L) 1.0 - 2.0 RATIO 01/01/2022 9:32 PM [facility] GFR ESTIMATE 65(L) >90 ML/MIN/1.7 3 M2 01/01/2022 9:32 PM [facility] Comment: NOTE: eGFR is not calculated for patients <18 years of age. This is an estimated GFR calculation using the new CKD EPI creatinine equation without race and so does not require a correction factor for race. This estimated GFR should not be used for calculating drug doses. 01/01/2022 8:58 PM SOOT BLOWER Keisha John [facility]- LABORATORY Final Res ult [facility] [address] [place] [address], [place] [phone] * (ABNORMAL) CBC W/DIFF AUTOMATED (01/01/2022 8:58 PM SOOT BLOWER) [facility] WBC 11.6(H) 4.5 - 11.0 x10'3/uL 01/01/2022 9:56 PM SOOT BLOWER [facility] RBC 3.75(L) 4.20 - 5.40 x10'6/uL 01/01/2022 9:56 PM [facility] HGB 11.3(L) 12.0 - 16.0 G/DL 01/01/2022 9:56 PM SOOT BLOWER [facility] HCT 33.5(L) 38.0 - 48.0 % 01/01/2022 9:56 PM [facility] MCV 89.3 81.0 - 99.0 FL 01/01/2022 9:56 PM [facility] MCH 30.1 27.0 - 31.0 PG 01/01/2022 9:56 PM [facility] MCHC 33.7 32.0 - 36.0 G/DL 01/01/2022 9:56 PM [facility] RDW 13.1 11.5 - 14.5 % 01/01/2022 9:56 PM [facility] PLT 279 130 - 400 x10'3/uL 01/01/2022 9:56 PM [facility] MPV 11.4 9.3 - 12.2 FL 01/01/2022 9:56 PM [facility] DIFFERENTIAL TYPE AUTOMATED DIFFERENTIAL 01/01/2022 9:56 PM [facility] NEUTROPHILS % 66.1 % 01/01/2022 9:56 PM [facility] LYMPHOCYTES % 26.3 % 01/01/2022 9:56 PM [facility] MONOCYTES % 5.4 % 01/01/2022 9:56 PM SOOT BLOWER [facility] EOSINOPHILS 1.3 % 01/01/2022 9:56 PM SOOT BLOWER [facility] BASOPHILS 0.5 % 01/01/2022 9:56 PM SOOT BLOWER [facility] IMMATURE GRANS % 0.4 % 01/02/20 9:56 PM SOOT BLOWER [facility] ABS. NEUTROPHILS TOTAL 7.69 1.80 - 7.70 x10'3/uL 01/01/2022 9:56 PM SOOT BLOWER [facility] ABS. LYMPHOCYTES 3.06 1.00 - 4.80 x10'3/uL 01/01/2022 9:56 PM SOOT BLOWER [facility] ABS. MONOCYTES 0.63 0.24 - 0.86 x10'3/uL 01/01/2022 9:56 PM SOOT BLOWER [facility] ABS. EOSINOPHILS 0.15 0.04 - 0.36 x10'3/uL 01/01/2022 9:56 PM SOOT BLOWER [facility] ABS. BASOPHILS 0.06 0.01 - 0.08 x10'3/uL 01/01/2022 9:56 PM SOOT BLOWER [facility] ABS. IMMATURE GRANULOCYTES 0.05 0.00 - 0.49 x10'3/uL 01/01/2022 9:56 PM SOOT BLOWER [facility] 01/01/2022 8:58 PM SOOT BLOWER us Keisha John INSTRUMENT REPAIR SPECIALIST-BC LABORATORY Final Res ult [facility] [address] [place] [address], [place] [phone] * XR CHEST PORTABLE (01/01/2022 8:07 PM SOOT BLOWER) Anatomical Region Laterality Modality Chest Radiographic Shelli ging 01/01/2022 8:16 PM SOOT BLOWER Impressions 01/01/2022 8:17 PM SOOT BLOWER IMPRESSION: Line placement. Referred By: ?? Interpreted By: Walter Alvarez MD, 01/01/2022 8:16 PM Narrative 01/01/2022 8:17 PM SOOT BLOWER Exam: Chest x-ray 1947 hours Comparison 12/23/2021 INDICATION: PICC line placement TECHNIQUE: One view FINDINGS: Right PICC line in the low SVC. ??Heart size and pulmonary vessels are within normal limits. ??The lungs are clear. Procedure Note Walter Alvarez MD - 01/01/2022 Exam: Chest x-ray 1947 hours Comparison 12/23/2021 INDICATION: PICC line placement TECHNIQUE: One view FINDINGS: Right PICC line in the low SVC. Heart size and pulmonaryvessels are within normal limits. The lungs are clear. IMPRESSION: Line placement. Referred By: Interpreted By: Walter Alvarez MD, 01/01/2022 8:16 PM Dior Maldonado INSTRUMENT REPAIR SPECIALIST GENERAL IMAGING Final Resul t documented in this encounter Visit Diagnoses Diagnosis Right arm pain- Primary Pain in limb Chest pain Chest pain, unspecified Osteomyelitis of great toe of right foot (CMS/HCC HHS/HCC) Right arm pain Pain in limb documented in this encounter Administered Medications Inactive Administered Medications - up to 3 most recent administrations Medication Order MAR Action Action Date Dose Rate Site ceFEPIme (MAXIPIME) 2 g in sodium chloride 0.9 % 100 mL IVPB 2 g, Intravenous, Administer over 30 Minutes, Once, 1 dose, On 01/01/22 at 2200 New Bag 01/01/2022 11:20 PM SOOT BLOWER 2 g 200 mL/hr HYDROcodone-acetaminophen (NORCO) 5-325 MG tablet 1 tablet 1 tablet, Oral, Once, 1 dose, On 01/01/22 at 2100, Maximum dose of acetaminophen is 4000 mg from all sources in 24 hours. Given 01/01/2022 11:20 PM SOOT BLOWER 1 tablet iopamidol (ISOVUE-370) 76 % injection 80 mL 80 mL, Intravenous, IMG once as needed, Contrast, 1 dose, Starting on 01/01/22 at 2147, Until 01/01/22 at 2223 Given 01/01/2022 10:23 PM SOOT BLOWER 80 mLs Right Arm oxyCODONE-acetaminophen (PERCOCET) 5-325 MG tablet 1 tablet 1 tablet, Oral, Once, 1 dose, On Sun01/02/22 at 0045, Maximum dose of acetaminophen is 4000 mg from all sources in 24 hours. Given 01/02/2022 12:45 AM SOOT BLOWER 1 tablet documented in this encounter Active and Recently Administered Medications Times are shown in SOOT BLOWER. Scheduled Medication Order 12/31/2021 01/01/2022 01/02/2022 ceFEPIme (MAXIPIME) 2 g in sodium chloride 0.9 % 100 mL IVPB (COMPLETED) 2 g, Intravenous, Administer over 30 Minutes, Once, 1 dose, On 01/01/22 at 2200 2320 (New Bag - Provider: Valdemar Hoffmann RN) 0026 (Infusion Stop Time - Provider: Valdemar Hoffmann RN) HYDROcodone-acetaminophen (NORCO) 5-325 MG tablet 1 tablet (COMPLETED) 1 tablet, Oral, Once, 1 dose, On 01/01/22 at 2100, Maximum dose of acetaminophen is 4000 mg from all sources in 24 hours. 2320 (Given - Provider: Valdemar Hoffmann RN) oxyCODONE-acetaminophen (PERCOCET) 5-325 MG tablet 1 tablet (COMPLETED) 1 tablet, Oral, Once, 1 dose, On Sun01/02/22 at 0045, Maximum dose of acetaminophen is 4000 mg from all sources in 24 hours. 0045 (Given - Provid er: Valdemar Hoffmann RN) PRN Medication Order 12/31/2021 01/01/2022 01/02/2022 iopamidol (ISOVUE-370) 76 % injection 80 mL (COMPLETED) 80 mL, Intravenous, IMG once as needed, Contrast, 1 dose, Starting on 01/01/22 at 2147, Until 01/01/22 at 2223 2223 (Given - Provider: Ceon da N Saqib, RTR) documented in this encounter Additional Health Concerns Assessment Noted Time PHQ-9 Depression Total Score: 0 03/08/19 9:30 AM SOOT BLOWER documented as of this encounter Care Teams Arboreal Scientist Relationship Specialty Start Date End Date Abiodun Segura II, MD [address] [place] [address] PCP - General FAMILY PRACTICE 03/09/21 documented as of this encounter
--- OUTSIDE RECORDS SUMMARY | 2024-03-02 22:27 | XMS_ITS | Encounter Summary ---
Author Organization [facility] Address [address] [place] [address]. [place] [address] [place] [address] Care Team Providers Care Underground Electrician Name Role Phone Colton SILVEIRA MD, Abiodun Rushing Primary Care Provider Reason for Visit * Reason Onset Date Comments Advise 12/26/2021 Encounter Details Date Type Department Care Team (Late st Contact Info) Description 12/26/2021 Telephone [facility] Home Care [address] [place] [address] [place] [address] Abiodun Segura II, MD [address] [place], [place] [phone] Advise Social History Tobacco Use Types Packs/Day Years [...] suspected to have Coronavirus/COVID-19? No / Unsure 12/16/2021 1:51 PM CDT documented as of this encounter [...] documented in this encounter Progress Notes * Alma Muir - 12/26/2021 8:26 AM CSTSummary: home health Ramonita We received a home health referral for Lena from [facility] for a diabetic foot infection. Will Dr Segura follow for home health? Thank you Alma [facility] Home Care R CREW MEMBER documented in this encounter Plan of Treatment Upcoming Encounters Date Type Department Care Team (Late st Contact Info) Description 03/14/2024 11:45 AM SOLAR CREW MEMBER Office Visit [facility] [phone] Marvin Mckeon MD [address] [facility] [address] [place] [address] 03/20/2024 11:30 AM SOLAR CREW MEMBER Office Visit [facility] Medical Group Family Medicine - [place] [address] [place] [phone] Abiodun Segura II, MD [address] [place], [place] [phone] documented as of this encounter Visit Diagnoses Not on filedocumented in this encounter Additional Health Concerns Assessment Noted Time PHQ-9 Depression Total Score: 0 03/08/19 9:30 AM [employer] CREW MEMBER documented as of this encounter Care Teams Underground Electrician Relationship Specialty Start Date End Date Abiodun Segura II, MD [address] [place], [place] [phone] PCP - General FAMILY PRACTICE 03/09/21 documented as of this encounter
--- OUTSIDE RECORDS SUMMARY | 2024-03-02 22:27 | XMS_ITS | Encounter Summary ---
Author Organization [facility] Address [address] [place] [address]. [place] [address] [place] [address] Care Team Providers Care Octave Board Racker Name Role Phone Colton SILVEIRA MD, Abiodun Rushing Primary Care Provider Encounter Details Date Type Department Care Team (Late st Contact Info) Description 12/28/2021 Hospital Follow-up Call [facility] Med/Surg [address] [place] [address] Teresa Amaya RN Social History [...] st Contact Info) Description 03/14/2024 11:45 AM DECK ENGINEER Office Visit [facility] [phone] Marvin Mckeon MD [facility] [address] [place] [address] 03/20/2024 11:30 AM DECK ENGINEER Office Visit [facility] Medical Group Family Medicine - [place] [phone] Abiodun Segura II, MD [address] [place] [phone] documented as of this encounter Visit Diagnoses Not on filedocumented in this encounter Additional Health Concerns Assessment Noted Time PHQ-9 Depression Total Score: 0 03/08/19 9:30 AM DECK ENGINEER documented as of this encounter Care Teams Octave Board Racker Relationship Specialty Start Date End Date Abiodun Segura II, MD [address] [place] [address] PCP - General FAMILY PRACTICE 03/09/21 documented as of this encounter
--- OUTSIDE RECORDS SUMMARY | 2024-03-02 22:27 | XMS_ITS | Encounter Summary ---
Author Organization [facility] Address [address] [place] [address]. [place] [address] [place] [address] Care Team Providers Care [employer] Counter Associate Name Role Phone Colton SILVEIRA MD, Yasmin Rushing Primary Care Provider Reason for Referral * Surgical (Routine) - Closed Specialty Diagnoses / Procedures Referred By Contac t Referred To Contact Diagnoses Diabetic foot infection ([facility]/HCC HHS/HCC) Procedures Case request operating room: INCISION AND DRAINAGE ANKLE Hubert Cheek DPM [address] [place] [address] Phone: tel: fax: Referral ID Status Reason Start Date Expiration Date Visits Re quested Visits Authorized [id number] Closed 12/21/2021 12/21/2022 1 1 * Imaging (Urgent) - Closed Specialty Diagnoses / Procedures Referred By Contac t Referred To Contact RADIOLOGY Procedures MRI FOOT LT WO CON Eduardo Aguillon, [place] [address] Phone: tel: fax: Referral ID Status Reason Start Date Expiration Date Visits Re quested Visits Authorized [id number] Closed 12/18/2021 12/18/2022 1 1 * Imaging (Urgent) - Closed Specialty Diagnoses / Procedures Referred By Contac t Referred To Contact RADIOLOGY Procedures MRI FOOT RT WO CON Wanda Mercer APRN [address] [place] [address] Phone: tel: fax: Referral ID Status Reason Start Date Expiration Date Visits Re quested Visits Authorized [id number] Closed 12/16/2021 12/16/2022 1 1 * Imaging (Emergency) - Closed Specialty Diagnoses / Procedures Referred By Contac t Referred To Contact RADIOLOGY Procedures USV ART REST W ADRIANA LOW EXT USV ART DUPLEX+ADRIANA LOW NOHEMY Desiree Mackenzie MD [address] [place] [id number] Phone: tel: fax: Referral ID Status Reason Start Date Expiration Date Visits Re quested Visits Authorized [id number] Closed 12/16/2021 12/16/2022 1 1 Reason for Visit * Reason Comments Foot Pain * Auth/Cert Specialty Diagnoses / Procedures Referred By Contac t Referred To Contact Diagnoses Hypokalemia Diabetic foot ulcer (CMS/HCC HHS/HCC) Diabetic foot infection (CMS/HCC HHS/HCC) Diabetic foot infection (CMS/HCC) Procedures NONE Wanda Prado MD [address] [place] [address] Phone: tel:[phone] fax: Referral ID Status Reason Start Date Expiration Date Visits Re quested Visits Authorized [id number] 1 1 Encounter Details Date Type Department Care Team (Latest Contact Info) Description 12/16/2021 1:48 PM CDT - 12/26/2021 4:11 PM TEMPLATE INSPECTOR Hospital Encounter [facility] Med/Surg [address]rd [place] [address] Desiree Mackenzie MD [address] [facility] [address] [place], [place] [id number] Wanda Prado MD [address] [place] [address] [phone] (Work) David Schofield PA-C [address] [place], [place] [phone] [phone] (Work) Eduardo Aguillon APRN [address] [place], [place] [address] Roxana Chadnler APNP [address] [place] [address] Foot Pain Discharge Disposition: Home with Home Health Care Social History Tobacco Use Types Packs/Day [...] Sign Reading Time Taken Comments Blood Pressure 140/81 12/26/2021 8:20 AM TEMPLATE INSPECTOR Pulse 87 12/26/2021 8:20 AM TEMPLATE INSPECTOR Temperature 36.6 ??C (97.9 ??F) 12/26/2021 8:20 AM CS T Respiratory Rate 18 12/26/2021 4:29 AM TEMPLATE INSPECTOR Oxygen Saturation 100% 12/26/2021 8:20 AM TEMPLATE INSPECTOR Inhaled Oxygen Concentration - - Weight 83.5 kg (184 lb 1.4 oz) 12/25/2021 4:57 A M TEMPLATE INSPECTOR Height 167.6 cm (5' 6 ) 12/16/2021 2:00 PM CDT Body Mass Index 29.71 12/16/2021 2:00 PM CDT documented in this encounter Functional Status * Question Answer Date of Assessment Author Status Do you have serious difficulty walking or climbing stairs? Yes 12/17/2021 2:10 AM CDT Amanda Qureshi RN Ac tive * Question Answer Date of Assessment Author Status Do you have difficulty dressing or bathing? No 12/17/2021 2:10 AM CDT Amanda Qureshi R N Active Because of a physical, mental, or emotional condition, do you have difficulty doing errands alone such as visiting a doctor's office or shopping? No 12/17/2021 2:10 AM CDT Amanda Qureshi RN Act mando * RETIRED Are you deaf or do [...] difficulty concentrating, remembering, or making decisions? No 12/17/2021 2:10 AM CDT Amanda Qureshi R N Active * Because of a physical, mental, or emotional condition, do you have serious difficulty concentrating, remembering, or making decisions? Answer Entry Date Author Status No 12/17/2021 2:10 AM Amanda Ballesteros RN Active documented in this encounter Discharge Summaries * ELLEN Justice - 12/26/2021 1:56 PM CST Images from the original note were not included. Hospitalist Discharge Summary Patient ID: Tyson Mcneal. female. 1970. Admit date: 12/16/2021 1:48 PM Discharge date and time: 12/26/21 Admitting Physician: Wanda Maynard MD Attending Physician: ELLEN Justice Primary Care Physician: YASMIN SEGURA MD Discharge Physician: ELLEN JUSTICE Hospital Diagnosis: Diabetic foot infection ([facility]) Admission Condition: poor Discharged Condition: Good Code Status: Full Code Indication for Admission: Chief Complaint Patient presents with ??? Foot Pain Readmission/Mortality Score at discharge: Low 0-28, Medium 29-58, High >59 LACE+ Score *This score is based on incomplete data Readmission Score: 69* Male Patient: - Urgent Admission: 15 Discharge Institution: - Length of Stay: 7 Alternative Level of Care Status: 0 ED Visits in Previous 6 Months: 6 Elective Admission in Previous Year: 6 Comorbidity Score (by age & number of urgent admissions): 35 - This score is not calculated because of inadequate data Hospital Course: 51-year-old female presented to the ED for an evaluation of her right foot per internet marketing director recommendations as he was concerned about osteomyelitis. Patient has a past medical history of HTN, HLD, history of COVID- 19 in 2019, , Diabetes, neuropathy Charcot foot and history of multiple toe amputations of the left foot. She was admitted for further evaluation, she was diagnosed with osteomyelitis of the right foot, she did have a bone biopsy, infectious disease did see her and recommended long-term IV ABX. She will be discharging home with home health to complete her IV ABX course at home. Please see below for hospital course/interventions. Findings that require further workup: Follow-up with Dr. Mercer with podiatry to have sutures removed from bone biopsy Consults: ID, podiatry Significant Diagnostic Studies: Recent Results (from the past 24 hour(s)) POCT glucose Collection Time: 12/25/21 3:09 PM Result Value Ref Range GLUCOSE POC 287 (H) 70 - 99 mg/dL POCT glucose Collection Time: 12/25/21 8:37 PM Result Value Ref Range GLUCOSE POC 204 (H) 70 - 99 mg/dL COMPREHENSIVE METABOLIC PANEL Collection Time: 12/26/21 3:49 AM Result Value Ref Range GLUCOSE 89 70 - 99 MG/DL BUN 26 (H) 7 - 18 MG/DL CREATININE S/P/B 1.08 (H) 0.55 - 1.02 MG/DL SODIUM 138 136 - 145 MMOL/L POTASSIUM 4.3 3.5 - 5.1 MMOL/L CHLORIDE S/P/B 108 100 - 108 MMOL/L CO2 24.8 21 - 32 MMOL/L CALCIUM 9.1 8.5 - 10.1 MG/DL BILIRUBIN TOTAL S/P/B 0.2 0.2 - 1.2 MG/DL TOTAL PROTEIN S/P/B 7.9 6.4 - 8.2 G/DL ALBUMIN S/P/B 2.9 (L) 3.4 - 5.0 G/DL AST 44 (H) 15 - 37 U/L ALT 82 (H) 14 - 55 U/L ALKALINE PHOSPHATASE S/P/B 169 (H) 50 - 136 U/L ANION GAP 5.2 5 - 15 MMOL/L BUN CREATININE RATIO 24.1 6 - 26 A/G RATIO 0.6 (L) 1.0 - 2.0 RATIO GFR ESTIMATE 63 (L) >90 ML/MIN/1.73 M2 CBC W/DIFF AUTOMATED Collection Time: 12/26/21 3:49 AM Result Value Ref Range WBC 10.2 4.5 - 11.0 x10'3/uL RBC 3.31 (L) 4.20 - 5.40 x10'6/uL HGB 10.0 (L) 12.0 - 16.0 G/DL HCT 29.7 (L) 38.0 - 48.0 % MCV 89.7 81.0 - 99.0 FL MCH 30.2 27.0 - 31.0 PG MCHC 33.7 32.0 - 36.0 G/DL RDW 13.1 11.5 - 14.5 % PLT 240 130 - 400 x10'3/uL MPV 10.8 9.3 - 12.2 FL DIFFERENTIAL TYPE AUTOMATED DIFFERENTIAL NEUTROPHILS 60.8 % LYMPHOCYTES 30.5 % MONOCYTES 5.9 % EOSINOPHILS 1.9 % BASOPHILS 0.5 % IMMATURE GRANS 0.4 % ABS. NEUTROPHILS TOTAL 6.21 1.80 - 7.70 x10'3/uL ABS. LYMPHOCYTES 3.11 1.00 - 4.80 x10'3/uL ABS. MONOCYTES 0.60 0.24 - 0.86 x10'3/uL ABS. EOSINOPHILS 0.19 0.04 - 0.36 x10'3/uL ABS. BASOPHILS 0.05 0.01 - 0.08 x10'3/uL ABS. IMMATURE GRANULOCYTES 0.04 0.00 - 0.49 x10'3/uL LIPASE Collection Time: 12/26/21 3:49 AM Result Value Ref Range LIPASE 143 73 - 393 UNITS/L POCT glucose Collection Time: 12/26/21 6:23 AM Result Value Ref Range GLUCOSE POC 83 70 - 99 mg/dL POCT glucose Collection Time: 12/26/21 11:41 AM Result Value Ref Range GLUCOSE POC 143 (H) 70 - 99 mg/dL Radiology Reports : USV ART REST W ADRIANA LOW EXT ?? Result Date: 12/16/2021 ARTERIAL DOPPLER - ADRIANA BILATERAL LOWER EXTREMITY VASCULAR LAB Pat.Name: TYSON MCNEAL Pat.ID:[id number] .Date: 12/16/2021 Refer.MD: Yasmin Segura Exam Time: 2:52:00 PM Study Type:MARINO VS Arterial Doppler Legs NOHEMY Height: 66in Age: 2 1970,51Y Sex: FEMALE Sonogrphr: Shahla Toscano RDMS, RVT Pat. Stat.:Outpatient Room: ER History / Clinical: Rt foot wounds. L>R severe leg pain. Lt foot cool to touch with weak pulse. PMH- DM. HTN. HLD. neurop. L2, L3 amp. BMI 39. Prior 06/21/21- Rt 1.12, Lt 1.24 Procedures: Doppler waveforms, Digit PPG, Systolic Pressures w/ADRIANA Race: -Congolese ++++++++++++++++++++++++++++++++++++ SUMMARY: ++++++++++++++++++++++++++++++++++++ Joceline ADRIANA Criteria: >1.30 = falsely elevated, calcified vessels; 1.00-1.29 = no signif ischemia at rest ; .80-.99 = mild PAD, asymptomatic; .50-.79 = moderate PAD, claudication; <.50 = severe PAD, rest pain;<.30 = critical PAD, necrosis, poor healing (Digits: DBI >.60 Normal; <.60 Abnormal) (Positive Stress eval: ADRIANA decrease of >.20 or >20% pressure drop) Right leg: Common Femoral waveform is triphasic, high amplitude; Popliteal triphasic, high amplitude; Posterior Tibial triphasic, medium amplitude with ADRIANA 0.959 ; DP/Anterior Tibial triphasic, high amplitude with ADRIANA 0.959 . Digit flow by PPG is not assessed due to wound with bandages. Left leg: Common Femoral waveform is triphasic, high amplitude; Popliteal biphasic, high amplitude; Posterior Tibial biphasic, medium amplitude with ADRIANA 0.973 ; DP/Anterior Tibial biphasic, medium amplitude with ADRIANA 1.08 . Digit flow by PPG is low amplitude with DBI 0.676 . Compared to previous exam done 06/21/2021 , there is no significant change. CONCLUSION: ++++++++++++++++++++++++++++++++++++ FINDINGS: ++++++++++++++++++++++++++++++++++++++++++++++++++++++++++++++++++++++++ MEASUREMENTS: ++++++++++++++++++++++++++++++++++++ DOPPLER Left E COMMERCE ARCHITECT E COMMERCE ARCHITECT PSV 123 cm/s Left Dist Pop A Dist Pop A PSV 94.2 cm/s Left Dist HORSE FARM MANAGER Dist HORSE FARM MANAGER PSV 46.2 cm/s Left Dist DOMINGA Dist DOMINGA PSV 56.5 cm/s Right E COMMERCE ARCHITECT E COMMERCE ARCHITECT PSV 145 cm/s Right Dist Pop A Dist Pop A PSV 107 cm/s Right Dist HORSE FARM MANAGER Dist HORSE FARM MANAGER PSV 56.5 cm/s Right Dist DOMINGA Dist DOMINGA PSV 82.8 cm/s PRESSURES Right Brachial Brach P 148 mmHg Right Ankle DP AnkleDP P 142 mmHg Right Ankle PT AnklePT P 142 mmHg Right ADRIANA PT ADRIANA PT 0.959 Right ADRIANA DP ADRIANA DP 0.959 Left Brachial Brach P 140 mmHg Left Ankle DP AnkleDP P160 mmHg Left Ankle PT AnklePT P 144 mmHg Left Great Toe GreatToe P 100 mmHg Left ADRINAA PT ADRIANA PT 0.973 Left ADRIANA DP ADRIANA DP 1.08 Left TBI TBI 0.676 Unsigned Hubert Hernandez M.D. ?? XR ABD KUB ?? Result Date: 12/16/2021 HISTORY: no BM in 5 days; n/v TECHNIQUE: Supine image(s) of the abdomen and pelvis were obtained on12/16/2001 at 1949 hours. COMPARISON: None. FINDINGS: LINES OR TUBES: None LUNG BASES: Unremarkable. BOWEL GAS PATTERN: There are no abnormally dilated loops of bowel. Multiple scattered tablets are throughout the abdomen FREE AIR: No free air is detected on this supine exam. CALCIFICATIONS/OTHER: None MUSCULOSKELETAL: The osseous structures are unremarkable. ?? IMPRESSION: 1. No radiographic evidence of bowel obstruction. 2. Mild fecal burden is seen within the colon. Ordered By: WANDA MERCER Interpreted By: Mercy Irving MD, 12/16/2021 8:04 PM ?? XR FOOT LT 3V ?? Result Date: 11/29/2021 EXAMINATION: Left foot EXAM DATE: 11/28/2021 11:48 AM REASON FOR EXAM: pain Foot pain and swelling COMPARISON: 01/17/2021 TECHNIQUE: 3 views FINDINGS: Moderate soft tissue swelling. Hypertrophic bone and mixed sclerotic and lucent changes throughout the midfoot compatible withneuropathic disease, grossly stable. Bone spur suggests chronic plantar fasciitis. Status post second and third digit amputations. No obvious acute erosive changes to indicate acute osteomyelitis. Ifthere is clinical concern for acute osteomyelitis, MRI recommended. No evidence of fracture or dislocation. ?? IMPRESSION: 1. Prior amputations and midfoot neuropathic disease, stable. No definite acute osteomyelitis, but if there is significant clinical concern for osteomyelitis, MRI is recommended. ReferredBy: Interpreted By: Isaías Jones MD, 11/29/2021 8:02 AM ?? XR MULTI TOE RT ?? Result Date: 12/16/2021 IMAGING STUDIES: XR MULTI TOE RT DATE: 12/16/2021 2:26 PM HISTORY: diabetic ulcers to right first and second toes 51-year-old female with diabetic ulcers of the right foot first and second toes. Reported ulcerations along the dorsal aspect of the right first toe and volar aspect of the right secondtoe and debrided. Additional history of increasing leg pain, left greater than right, with cool feet and weak pulses. COMPARISON: Right foot 01/17/2021. DISCUSSION: AP, oblique, and lateral views of the right foot. The posterior foot is excluded on lateral view. Subtle lucency along the distal medial aspect of the great toe near the level of the nailbed and of the medial tip of the second digit. On lateral view, small defect along the plantar aspect of the great toe distal phalanx but stable from 2020 study. No appreciable new fracture or erosion. No appreciable acute periosteal reaction. Maintained great toe interphalangeal joint space and second digit interphalangeal joint spaces. Old healed fracture of the proximal fifth metatarsal. Moderate degenerative changes in the midfoot. Plantarcalcaneal spur. Atherosclerotic calcification in the distal leg and in the foot, including the digital arteries. ?? IMPRESSION: No appreciable fracture, dislocation, periosteal reaction, or acute bony erosion. If clinical concern for osteomyelitis, MRI is a more sensitive test. Ordered By: DESIREE MACKENZIE Interpreted By: Angelito Tidwell, 12/16/2021 2:50 PM ?? XR FOOT LT 2V ?? Result Date: 12/16/2021 PROCEDURE: XR FOOT LT 2V HISTORY: Left foot pain. COMPARISON: X-ray right foot TECHNIQUE: AP, lateral and oblique rotated views of the left foot were obtained. FINDINGS: There is no acute fracture orosseous malalignment identified. There are postsurgical changes from prior second and third toe amputations. Degenerative changes of the left midfoot is present. The joint spaces are maintained. There is a moderate plantar calcaneal enthesophyte. Mild soft swelling of the foot. ?? IMPRESSION: 1. No acute osseous abnormality is identified. 2. Status post second and third toe amputations. 3. Mild soft tissue swelling of the left foot. Ordered By: WANDA MERCER Interpreted By: Mercy Irving MD, 12/16/2021 8:06 PM ?? MRI right foot WO 12/17/21 1. ??Mild osteomyelitis of the distal first phalanx. 2. ??Mild osteomyelitis of the middle and distal second digit phalanges. 3. ??No drainable fluid collection or abscess. 4. ??Dorsal foot subcutaneous edema ?? EKG: Results for orders placed or performed during the hospital encounter of 12/16/21 ECG 12 lead ?? Narrative ?? 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 11/1/22 MRI LT FOOT WO CON IMPRESSION: 1. ??No evidence of acute osteomyelitis identified. 2. ??Advanced midfoot degenerative change. ?? 12/25/2021 KUB Supine view of the abdomen and pelvis 2 images. Nonobstructive bowel gas pattern. Oval 11 mm calcification projecting just superior to the iliac crest at the level of L5 transverse process correlates to benign calcification anterior to the psoas muscle and lateral to the ureter onCT. ??Calcification along the right side at the L4 level is also evident on prior CT and not associated with the ureter. Numerous calcifications in the left upper quadrant splenic granulomas. ??Arterial vascular calcifications and phleboliths in the pelvis. ??Bilateral buttock injection granulomas. On the 10/29/2021 CT study, 2 mm right and 4 mm left nonobstructing renal calcifications but are notclearly evident on the current radiograph. Mild degenerative changes of the spine, pelvis, and hips Discharge Exam: Filed Vitals: 12/25/21 2003 12/26/21 0013 12/26/21 0429 12/26/21 0820 BP: 106/52 113/62 119/68 (!) 140/81 Pulse: 93 88 79 87 Resp: 18 18 18 Temp: 98.6 ??F (37 ??C) 98.2 ??F (36.8 ??C) 98.1 ??F (36.7 ??C) 97.9 ??F (36.6 ??C) TempSrc: Oral Oral Oral Oral SpO2: 100% 100% 100% 100% Weight: Height: Physical Exam -GENERAL: No acute distress, Well nourished, Well developed -HEAD: Normocephalic, Atraumatic -EYES: Extraocular movements intact; PEERL -LUNGS: Effort normal, Clear to auscultation bilaterally, No wheezes, No crackles, No rhonchi -CVS: Regular rate and rhythm, S1 and S2 normal -ABDOMEN: Soft, Non tender, Non distended, +BS hypoactive today -EXT: No lower extremity edema -NEURO: Awake, alert, oriented, No gross neuro deficits -SKIN: Skin color, texture, turgor normal.??Ulcerative wound to 2nd right toe anterior and posterior; wound to anterior right great toe. Ulceration to left 4th toe. Dusky discoloration to distal aspects of digits of left foot; calluses on plantar aspect of left foot, PICC RUE Assessment & Plan ?? Diabetic Foot Infection-??Right??foot with OM Xray toes of left foot as above Blood Cultures (12/16) - NGTD Lactate WNL=1.3 MRI Right Foot with mild OM to distal 1st phalanx and middle/distal 2nd phalanges ID consultation appreciated. Prone to yeast infections w/ abx. Consider prophylactic diflucan. Will consult vascular. Appreciate recommendations. Vascular consulted IR IR consulted for bone biopsy, but unable to do based on too small of a target. . Vascular consulted podiatry for bone biopsy Podiatry did bone biopsy on 12/22/2021 PICC placed OPAT recommendations: - Start Metronidazole 500 mg po tid; completed treatment in house ?? Daptomycin 6mg/kg IV q24H ?? Cefepime 2 gram IV q8H ?? Weekly lab monitoring with the following: CBC, CMP, CRP and CK level ?? Home health for PICC line care ?? Home health for weekly lab draw and PICC removal after completion of IV therapy ?? Ensure the patient will be followed by a local physician who can monitor his weekly labs, PCP agreed to follow ?? 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 Diabetic foot wound, left 4th digit Continue treatment above. MRI left foot ordered. > Negative for osteo ?? Diabetes A1c=7.7 on 12/08/21 Did have a few hypoglycemic episodes d/t decreased po intake Insulin regimen changed to SSI Blood sugars regulated, restarted on home regimen Pt had hypoglycemic episodes on 12/19, that resolved. Home insulin dc'd. ssi started Consider amitriptyline for neuropathy management, will defer to PCP Pt tells me that she is not taking the sitagliptan at home d/t it was making her itch and PCP told her to stop it, will not restart at DC ?? Hx of multiple toe amputation-left foot Hx of??Charcot foot-left Increased pain/swelling Xray left foot as above Neuro vascular checks Pain management monitor for toxicity Offered suppository today. Followed with Dr. Hernandez and Dr. Santiago in the past ?? Acute on chronic constipation No BM in 5 days KUB as above Intensify bowel regimen Continue to monitor carefully Resolved with resuming Linzess ?? Hypokalemia-resolved K 3.3 Replace and monitor ?? Hypomagnesemia-resolved Mg < 0.3 Replace and monitor ?? CKD 2 Appears stable. Monitor closely.? Hypertension Continue home BP medication Monitor BP and titrate??to maitain target goal With a small bump in her creatinine lisinopril was also DC'd, will resume as warranted Patient tells me that she was not taking hydrochlorothiazide at home, this was dc'd and will not berestarted Lisinopril not restarted at discharge, follow-up with PCP to resume ?? Hyperlipidemia Continue statin ?? Obesity BMI 32.77 Encourage Lifestyle Changes ?? CODE:??FULL CODE POA: Pt does not have a medical POA. Her??medical point of contact is her spouse Discharge Medications: Medication List START taking these medications Morning Afternoon Evening Bedtime As Needed acidophilus capsule Take 1 capsule by mouth 2 (two) times daily. Last time this was given: 1 capsule on December 26, 2021 8:11 AM ceFEPIme 2 g in sodium chloride 0.9 % SOLN 100 mL Inject 2 g into the vein every 8 (eight) hours for 38 days. Last time this was given: 2,000 mg on December 26, 2021 11:39 AM DAPTOmycin 450 mg in sodium chloride 0.9 % SOLN 100 mL Start taking on: December 27, 2021 Inject 450 mg into the vein daily for 37 days. Last time this was given: 450 mg on December 26, 2021 11:39 AM HYDROcodone-acetaminophen 5-325 MG tablet Commonly known as: NORCO Take 1 tablet by mouth every 6 (six) hours as needed. Indications: Acute Pain < 7 Day Supply Last time this was given: 1 tablet on December 25, 2021 10:41 PM CONTINUE taking these medications Morning Afternoon Evening Bedtime As Needed amLODIPine 10 MG tablet Commonly known as: NORVASC Take 1 tablet (10 mg total) by mouth daily. Last time this was given: 10 mg on December 25, 2021 8:57 PM cyclobenzaprine 10 MG tablet Commonly known as: FLEXERIL Take 1 tablet (10 mg total) by mouth 3 (three) times daily as needed. Last time this was given: 10 mg on December 23, 2021 9:07 AM Glucose Blood test strip USE 1 STRIP TO CHECK GLUCOSE TWICE DAILY HumaLOG Mix 75/25 (75-25) 100 UNIT/ML Susp Inject 60 units ;subcutaneously in the morning and 55 in the evening Generic drug: insulin lispro protamine-insulin lispro hydrocortisone 2.5 % ointment Commonly known as: HYTONE Apply 1 Application topically daily as needed. Apply to face hydrOXYzine 25 MG tablet Commonly known as: ATARAX Take 25-50 mg by mouth nightly at bedtime. Last time this was given: Ask your nurse or doctor linaCLOtide 145 MCG capsule Commonly known as: LINZESS Take 1 capsule (145 mcg total) by mouth every morning before breakfast. Take on empty stomach at least 30 minutes prior to the first meal of the day. Swallow whole. Do not open capsule or chew. Last time this was given: 145 mcg on December 26, 2021 6:24 AM lisinopril 40 MG tablet Commonly known as: PRINIVIL Take 1 tablet by mouth once daily Last time this was given: 40 mg on December 20, 2021 10:28 PM omeprazole 40 MG capsule Commonly known as: PriLOSEC Take 1 capsule (40 mg total) by mouth in the morning. ondansetron 4 MG disintegrating tablet Commonly known as: ZOFRAN-ODT Take 1 tablet (4 mg total) by mouth every 8 (eight) hours as needed for Nausea. Last time this was given: Ask your nurse or doctor Ricardo Insulin Syringe 31G X 15/64 1 ML Misc USE 1 SYRINGE SUBCUTANEOUSLY TWICE DAILY Generic drug: Insulin Syringe-Needle U-100 simvastatin 40 MG tablet Commonly known as: ZOCOR TAKE 1 TABLET BY MOUTH AT BEDTIME Trulicity 3 MG/0.5ML Sopn Inject 3 mg into the skin weekly. Generic drug: Dulaglutide STOP taking these medications hydroCHLOROthiazide 25 MG tablet Commonly known as: HYDRODIURIL SITagliptin 100 MG tablet Commonly known as: JANUVIA Disposition: Home with Home Health Time Spent on Discharge: 40 minutes Signed: ELLEN JUSTICE Cosigned by Major Edmond MD at 12/26/2021 8:11 PM TEMPLATE INSPECTOR LATE INSPECTOR LATE INSPECTOR documented in this encounter Discharge Instructions * Attachments The following attachments cannot be sent through Care Everywhere. * Diabetic Foot Ulcer Discharge Instructions (Taiwanese) documented in this encounter Medications at Time of Discharge acidophilus (FLORAJEN) capsule Take 1 capsule by mouth 2 (two) times daily. 60 capsule 2 09/04/19 23 amLODIPine 10 MG tabletIndications:H ypertension, unspecified type [The details of the medication are not available because there are pending changes by a home health clinician.] 90 tablet 3 1 08/08/19 23 ceFEPIme 2 g in sodium chloride 0.9 % SOLN 100 mL Inject 2 g into the vein every 8 (eight) hours for 38 days. 100 mL 38 2 02/03/20 22 cyclobenzaprine 10 MG tablet Take 1 tablet (10 mg total) by mouth 3 (three) times daily as needed. 15 tablet 2 03/15/19 23 DAPTOmycin 450 mg in sodium chloride 0.9 % SOLN 100 mL Inject 450 mg into the vein daily for 37 days. 100 mL 37 2 02/03/20 22 Dulaglutide (TRULICITY) 3 MG/0.5ML Solution Pen-injectorIndicat ions:Type 2 diabetes mellitus with diabetic neuropathic arthropathy, with long-term current use of insulin ([facility]) Inject 3 mg into the skin weekly. 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, with long-term current use of insulin ([facility]) USE 1 STRIP TO CHECK GLUCOSE TWICE DAILY 200 strip 3 2 01/02/20 22 HUMALOG MIX 75/25 (75-25) 100 UNIT/ML SuspensionIndicatio ns:Type 2 diabetes mellitus with retinopathy, with long-term current use of insulin, macular edema presence unspecified, unspecified laterality, unspecified retinopathy severity ([facility]) Inject 60 units ;subcutaneously in the morning and 55 in the evening 40 mL 3 2 01/02/20 HYDROcodone-acetami nophen (NORCO) 5-325 MG tabletIndications:A cute [...] Burning Feeling and Itching 2 10/12/19 23 linaCLOtide 145 MCG capsuleIndications: Chronic idiopathic constipation [The details of the medication are not available because there are pending changes by a home health clinician.] 30 capsule 5 2 03/15/19 23 LISINOPRIL 40 MG tabletIndications:P rimary hypertension Take 1 tablet by mouth once daily 30 tablet 5 2 01/07/20 22 omeprazole 40 MG capsuleIndications: Esophagitis due to doxycycline Take 1 capsule (40 mg total) by mouth in the morning. 30 capsule 1 2 10/12/19 23 ondansetron 4 MG disintegrating tabletIndications:N ausea Take 1 tablet (4 mg total) by mouth every 8 (eight) hours as needed for Nausea. 20 tablet 2 10/12/19 23 RELION INSULIN SYRINGE 31G X 15/64 1 ML MiscIndications:Typ e 2 diabetes mellitus with diabetic neuropathic arthropathy, with long-term current use of insulin ([facility]) USE 1 SYRINGE SUBCUTANEOUSLY TWICE DAILY 100 each 5 1 01/02/20 22 simvastatin (ZOCOR) 40 MG tabletIndications:H ypercholesteremia [The details of the medication are not available because there are pending changes by a home health clinician.] 90 tablet 3 2 06/15/19 24 documented as of this encounter Progress Notes * Teresa Stout V - 12/26/2021 2:53 PM CST I delivered the Reinforcement Important Message from Medicare (Subsequent IMM) to Tyson Wahl after explaining the form to the patient, the Patient signed the form. The Patient received a copy of the form for their records. 12/26/21 1453 Forms Reinforcement Important Message from Medicare (Subsequent IMM) Signed Copy delivered LATE INSPECTOR * David Grimes RN - 12/26/2021 2:35 PM CST Problem: Pain Goal: Patient's pain/discomfort is manageable [...] for this hospitalization Outcome: Adequate for Discharge LATE INSPECTOR * Shana Martinez, HUMAN RESOURCES ADMIN - 12/26/2021 2:00 PM CST Spoke with Arelis at [facility], nurse will be here around 2:00 to complete a teaching with patient and daughter. [facility] has accepted and will see patient tomorrow. I spoke with patient and daughter at bedside to inform them of above, they are agreeable. Patient to return home with family atdischarge. 12/26/21 1359 Discharge Planning Living Arrangements Spouse/Significant other;Children Support Systems Spouse/Significant other;Children;Family Members Type of Residence Private residence Assistance/Services Needed Yes Type of Assistance Needed Home Health Home Health services RN IV Infusion at discharge Yes Patient expects to be discharged to: Home DME Needed at Discharge No LATE INSPECTOR * ELLEN Justice - 12/26/2021 10:13 AM CST Hospitalist Daily Progress Note Subjective Patient seen and examined at the bedside this morning, her is also present. States she is feeling so much better this morning we discussed that she will still need to complete her IV ABX regimen until 02/02/2022 even though her bone biopsy so far is showing no growth. She denies any nausea,vomiting, headaches, shortness of breath, chest pain. Objective Filed Vitals: 12/25/21200212/26/21 0013 12/26/21 0429 12/26/21 0820 BP: 106/52 113/62 119/68 (!) 140/81 Pulse: 93 88 79 87 Resp: 18 18 18 Temp: 98.6 ??F (37 ??C) 98.2 ??F (36.8 ??C) 98.1 ??F (36.7 ??C) 97.9 ??F (36.6 ??C) TempSrc: Oral Oral Oral Oral SpO2: 100% 100% 100% 100% Weight: Height: Intake/Output 24H Total: No intake or output data in the 24 hours ending 12/26/21 1013 Physical Exam: -GENERAL: No acute distress, Well nourished, Well developed -HEAD: Normocephalic, Atraumatic -EYES: Extraocular movements intact; PEERL -LUNGS: Effort normal, Clear to auscultation bilaterally, No wheezes, No crackles, No rhonchi -CVS: Regular rate and rhythm, S1 and S2 normal -ABDOMEN: Soft, Non tender, Non distended, +BS hypoactive today -EXT: No lower extremity edema -NEURO: Awake, alert, oriented, No gross neuro deficits -SKIN: Skin color, texture, turgor normal. Ulcerative wound to 2nd right toe anterior and posterior; wound to anterior right great toe. Ulceration to left 4th toe. Dusky discoloration to distal aspects of digits of left foot; calluses on plantar aspect of left foot, PICC RUE Medications ??? acidophilus 1 capsule Oral BID ??? amLODIPine 10 mg Oral nightly ??? atorvastatin 20 mg Oral Daily ??? cefepime 2 g Intravenous Q8H ??? cetirizine 10 mg Oral Daily ??? DAPTOmycin 6 mg/kg (Adjusted) Intravenous Q24H ??? docusate sodium 100 mg Oral BID ??? fluticasone propionate 1 spray Each Nostril Daily ??? heparin (porcine) 5,000 Units Subcutaneous 2 times per day ??? normal saline 5-10 mL Intracatheter Q24H And ??? heparin lock flush 3 mL Intracatheter Q24H ??? hydrOXYzine 25 mg Oral Nightly at bedtime ??? insulin aspart protamine-insulin aspart 65 Units Subcutaneous Daily with breakfast And ??? insulin aspart protamine-insulin aspart 55 Units Subcutaneous Daily with supper ??? insulin lispro 0-16 Units Subcutaneous TID AC And ??? insulin lispro 0-8 Units Subcutaneous Nightly at bedtime ??? linaCLOtide 145 mcg Oral QAM AC ??? pantoprazole EC 40 mg Oral Daily ??? Senna 8.6 mg Oral Nightly at bedtime ??? Tdap 0.5 mL Intramuscular Once acetaminophen, bisacodyl, bisacodyl EC, cyclobenzaprine, dextrose 10 % bolus, glucagon, glucose, normal saline AND normal saline AND normal saline AND heparin lock flush AND heparin lock flush AND Flush all central lines with 10ml syringe AND Use pulse flush technique with all central lines AND Change dressing AND Chlorhexidine Gluconate Cloth Bath, HYDROcodone-acetaminophen, morphine, naLOXone, ondansetron Labs, Imaging, Other Studies Recent Labs Lab 12/20/21 0940 12/21/21 0742 12/22/21 0552 12/23/21 0355 12/24/2134412/25/2134112/26/21348 WBC 8.3 7.3 8.6 8.2 7.4 9.3 10.2 RBC 4.03* 4.08* 4.01* 3.45* 3.43* 3.40* 3.31* HGB 12.2 12.2 12.1 10.3* 10.3* 10.2* 10.0* HCT 36.4* 37.0* 36.2* 31.4* 30.9* 30.4* 29.7* MCV 90.3 90.7 90.3 91.0 90.1 89.4 89.7 MCH 30.3 29.9 30.2 29.9 30.0 30.0 30.2 MCHC 33.5 33.0 33.4 32.8 33.3 33.6 33.7 PLT 319 293 321 259 247 244 240 RDW 12.8 12.9 12.7 12.8 12.8 12.8 13.1 MPV 11.1 10.7 10.9 11.1 11.1 11.1 10.8 PERNEU 60.2 55.5 46.7 70.5 58.0 55.9 60.8 PERLYM 32.6 36.5 46.8 22.0 33.6 35.8 30.5 PERMON 5.3 5.5 4.4 5.5 5.6 5.7 5.9 LYMC 2.71 2.65 4.01 1.81 2.47 3.33 3.11 MONOC 0.44 0.40 0.38 0.45 0.41 0.53 0.60 EOSC 0.09 0.11 0.10 0.08 0.15 0.18 0.19 BASOC 0.05 0.05 0.06 0.05 0.04 0.04 0.05 DTYPE AUTOMATED DIFFERENTIAL AUTOMATED DIFFERENTIAL AUTOMATED DIFFERENTIAL AUTOMATED DIFFERENTIAL AUTOMATED DIFFERENTIAL AUTOMATED DIFFERENTIAL AUTOMATED DIFFERENTIAL Recent Labs Lab 12/20/21 0940 12/21/2142 12/22/21 0552 11/04/22 0355 11/05/22 0345 11/06/22 0342 11/07/22 0349 NA 137 138 136 135* 137 138 138 K 4.8 4.7 4.6 5.6* 4.7 4.2 4.3 CL 105 105 105 106 107 107 108 CO2 26.8 28.6 25.9 23.6 25.2 25.3 24.8 AGAP 5.2 4.4* 5.1 5.4 4.8* 5.7 5.2 BUN 24* 26* 33* 28* 23* 27* 26* CR 1.14* 1.21* 1.29* 1.11* 1.05* 1.02 1.08* BUNCREATININ 21.1 21.5 25.6 25.2 21.9 26.5* 24.1 GLU 182* 162* 170* 251* 175* 142* 89 CA 9.6 9.8 9.5 8.8 8.7 9.2 9.1 TP -- -- -- -- -- 7.8 7.9 ALB -- -- -- -- -- 2.8* 2.9* TBIL -- -- -- -- -- 0.2 0.2 ALKP -- -- -- -- -- 184* 169* AST -- -- -- -- -- 38* 44* ALT -- -- -- -- -- 80* 82* No results for input(s): APTT, INR, PTT in the last 168 hours. Recent Labs Lab 12/25/21 0342 CPK 71 No results for input(s): LACTICACID, PROCT in the last 168 hours. Results for orders placed or performed during the hospital encounter of 08/11/19 URINALYSIS, AUTO, COMPLETE Result Value Ref Range Specimen Type URINE CLEAN CATCH COLOR (U) LIGHT YELLOW TRANSPARENCY CLEAR Specific Taylor (U) 1.024 1.001 - 1.030 U PH 5.5 5.0 - 9.0 LEUKOCYTE ESTERASE NEGATIVE NEGATIVE NITRITES NEGATIVE NEGATIVE PROTEIN (U) 70 (H) <30 MG/DL URINE GLUCOSE 200 (A) NORMAL MG/DL U KETONES NEGATIVE NEGATIVE MG/DL UROBILINOGEN NORMAL NORMAL MG/DL BILIRUBIN (U) NEGATIVE NEGATIVE MG/DL BLOOD NEGATIVE NEGATIVE CULTURE & SENSITIVITY INDICATED? CULTURE IS NOT INDICATED MUCUS RARE /LPF WBC/HPF 1 <6 /HPF RBC/HPF 1 <6 /HPF BACTERIA (URINE) RARE (A) NONE /HPF SQUAMOUS EPITHELIALS RARE /HPF Imaging USV ART REST W ADRIANA LOW EXT Result Date: 12/16/2021 ARTERIAL DOPPLER - ADRIANA BILATERAL LOWER EXTREMITY VASCULAR LAB Pat.Name: TYSON MCNEAL Pat.ID: [id number] .Date: 12/16/2021 Refer.MD: Yasmin Segura Exam Time: 2:52:00 PM Study Type:MARINO VS Arterial Doppler Legs NOHEMY Height: 66in Age: 2 1970,51Y Sex: FEMALE Sonogrphr: Shahla Toscano RDMS, RVT Pat. Stat.:Outpatient Room: ER History / Clinical: Rt foot wounds. L>R severe leg pain. Lt foot cool to touch with weak pulse. PMH- DM. HTN. HLD. neurop. L2, L3 amp. BMI 39. Prior 06/21/21- Rt 1.12, Lt 1.24 Procedures: Doppler waveforms, Digit PPG, Systolic Pressures w/ADRIANA Race: -Congolese ++++++++++++++++++++++++++++++++++++ SUMMARY: ++++++++++++++++++++++++++++++++++++ Joceline ADRIANA Criteria: >1.30 = falsely elevated, calcified vessels; 1.00-1.29 = no signif ischemia at rest ; .80-.99 = mild PAD, asymptomatic; .50-.79 = moderate PAD, claudication; <.50 = severe PAD, rest pain;<.30 = critical PAD, necrosis, poor healing (Digits: DBI >.60 Normal; <.60 Abnormal) (Positive Stress eval: ADRIANA decrease of >.20 or >20% pressure drop) Right leg: Common Femoral waveform is triphasic, high amplitude; Popliteal triphasic, high amplitude; Posterior Tibial triphasic, medium amplitude with ADRIANA 0.959 ; DP/Anterior Tibial triphasic, high amplitude with ADRIANA 0.959 . Digit flow by PPG is not assessed due to wound with bandages. Left leg: Common Femoral waveform is triphasic, high amplitude; Popliteal biphasic, high amplitude; Posterior Tibial biphasic, medium amplitude with ADRIANA 0.973 ; DP/Anterior Tibial biphasic, medium amplitude with ADRIANA 1.08 . Digit flow by PPG is low amplitude with DBI 0.676 . Compared to previous exam done 06/21/2021 , there is no significant change. CONCLUSION: ++++++++++++++++++++++++++++++++++++ FINDINGS: ++++++++++++++++++++++++++++++++++++++++++++++++++++++++++++++++++++++++ MEASUREMENTS: ++++++++++++++++++++++++++++++++++++ DOPPLER Left E COMMERCE ARCHITECT E COMMERCE ARCHITECT PSV 123 cm/s Left Dist Pop A Dist Pop A PSV 94.2 cm/s Left Dist HORSE FARM MANAGER Dist HORSE FARM MANAGER PSV 46.2 cm/sLeft Dist DOMINGA Dist DOMINGA PSV 56.5 cm/s Right E COMMERCE ARCHITECT E COMMERCE ARCHITECT PSV 145 cm/s Right Dist Pop A Dist Pop A PSV 107cm/s Right Dist HORSE FARM MANAGER Dist HORSE FARM MANAGER PSV 56.5 cm/s Right Dist DOMINGA Dist DOMINGA PSV 82.8 cm/s PRESSURES Right Brachial Brach P 148 mmHg Right Ankle DP AnkleDP P 142 mmHg Right Ankle PT AnklePT P 142 mmHg Right ADRIANA PT ADRIANA PT 0.959 Right ADRIANA DP ADRIANA DP 0.959 Left Brachial Brach P 140 mmHg Left Ankle DP AnkleDP P160 mmHg Left Ankle PT AnklePT P 144 mmHg Left Great Toe GreatToe P 100 mmHg Left ADRIANA PT ADRIANA PT 0.973 Left ADRIANA DP ADRIANA DP 1.08 Left TBI TBI 0.676 Unsigned Hubert Hernandez M.D. XR ABD KUB Result Date: 12/16/2021 HISTORY: no BM in 5 days; n/v TECHNIQUE: Supine image(s) of the abdomen and pelvis were obtained on12/16/2001 at 1949 hours. COMPARISON: None. FINDINGS: LINES OR TUBES: None LUNG BASES: Unremarkable. BOWEL GAS PATTERN: There are no abnormally dilated loops of bowel. Multiple scattered tablets are throughout the abdomen FREE AIR: No free air is detected on this supine exam. CALCIFICATIONS/OTHER: None MUSCULOSKELETAL: The osseous structures are unremarkable. IMPRESSION: 1. No radiographic evidence of bowel obstruction. 2. Mild fecal burden is seen within the colon. Ordered By: WANDA MERCER Interpreted By: Mercy Irving MD, 12/16/2021 8:04 PM XR FOOT LT 3V Result Date: 11/29/2021 EXAMINATION: Left foot EXAM DATE: 11/28/2021 11:48 AM REASON FOR EXAM: pain Foot pain and swelling COMPARISON: 01/17/2021 TECHNIQUE: 3 views FINDINGS: Moderate soft tissue swelling. Hypertrophic bone and mixed sclerotic and lucent changes throughout the midfoot compatible withneuropathic disease, grossly stable. Bone spur suggests chronic plantar fasciitis. Status post second and third digit amputations. No obvious acute erosive changes to indicate acute osteomyelitis. Ifthere is clinical concern for acute osteomyelitis, MRI recommended. No evidence of fracture or dislocation. IMPRESSION: 1. Prior amputations and midfoot neuropathic disease, stable. No definite acute osteomyelitis, but if there is significant clinical concern for osteomyelitis, MRI is recommended. ReferredBy: Interpreted By: Isaías Jones MD, 11/29/2021 8:02 AM XR MULTI TOE RT Result Date: 12/16/2021 IMAGING STUDIES: XR MULTI TOE RT DATE: 12/16/2021 2:26 PM HISTORY: diabetic ulcers to right first and second toes 51-year-old female with diabetic ulcers of the right foot first and second toes. Reported ulcerations along the dorsal aspect of the right first toe and volar aspect of the right secondtoe and debrided. Additional history of increasing leg pain, left greater than right, with cool feet and weak pulses. COMPARISON: Right foot 01/17/2021. DISCUSSION: AP, oblique, and lateral views of the right foot. The posterior foot is excluded on lateral view. Subtle lucency along the distal medial aspect of the great toe near the level of the nailbed and of the medial tip of the second digit. On lateral view, small defect along the plantar aspect of the great toe distal phalanx but stable from 2020 study. No appreciable new fracture or erosion. No appreciable acute periosteal reaction. Maintained great toe interphalangeal joint space and second digit interphalangeal joint spaces. Old healed fracture of the proximal fifth metatarsal. Moderate degenerative changes in the midfoot. Plantarcalcaneal spur. Atherosclerotic calcification in the distal leg and in the foot, including the digital arteries. IMPRESSION: No appreciable fracture, dislocation, periosteal reaction, or acute bony erosion. If clinical concern for osteomyelitis, MRI is a more sensitive test. Ordered By: DESIREE MACKENZIE Interpreted By: Angelito Tidwell, 12/16/2021 2:50 PM XR FOOT LT 2V Result Date: 12/16/2021 PROCEDURE: XR FOOT LT 2V HISTORY: Left foot pain. COMPARISON: X-ray right foot TECHNIQUE: AP, lateral and oblique rotated views of the left foot were obtained. FINDINGS: There is no acute fracture orosseous malalignment identified. There are postsurgical changes from prior second and third toe amputations. Degenerative changes of the left midfoot is present. The joint spaces are maintained. There is a moderate plantar calcaneal enthesophyte. Mild soft swelling of the foot. IMPRESSION: 1. No acute osseous abnormality is identified. 2. Status post second and third toe amputations. 3. Mild soft tissue swelling of the left foot. Ordered By: WANDA MERCER Interpreted By: Mercy Irving MD, 12/16/2021 8:06 PM MRI right foot WO 12/17/21 1. Mild osteomyelitis of the distal first phalanx. 2. Mild osteomyelitis of the middle and distal second digit phalanges. 3. No drainable fluid collection or abscess. 4. Dorsal foot subcutaneous edema EKG: Results for orders placed or performed during the hospital encounter of 12/16/21 ECG [address] 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 ??No evidence of acute osteomyelitis identified. 2. ??Advanced midfoot degenerative change. 12/25/2021 KUB Supine view of the abdomen and pelvis 2 images. Nonobstructive bowel gas pattern. Oval 11 mm calcification projecting just superior to the iliac crest at the level of L5 transverse process correlates to benign calcification anterior to the psoas muscle and lateral to the ureter onCT. ??Calcification along the right side at the L4 level is also evident on prior CT and not associated with the ureter. Numerous calcifications in the left upper quadrant splenic granulomas. ??Arterial vascular calcifications and phleboliths in the pelvis. ??Bilateral buttock injection granulomas. On the 10/29/2021 CT study, 2 mm right and 4 mm left nonobstructing renal calcifications but are notclearly evident on the current radiograph. Mild degenerative changes of the spine, pelvis, and hips Assessment & Plan Diabetic Foot Infection- Right foot with OM Xray toes of left foot as above Blood Cultures (12/16) - NGTD Lactate WNL=1.3 IV Ceftriaxone, IV Vancomycin Pharmacy to dose Vancomycin Neuro vascular checks Pain management monitor for toxicity Wound care Consult MRI Right Foot with mild OM to distal 1st phalanx and middle/distal 2nd phalanges ID consultation appreciated. Agree with abx, but recommend broadening Rocephin to cefepime. Recommended bone sample and then determine abx disposition. Prone to yeast infections w/ abx. Consider prophylactic diflucan. Will consult vascular. Appreciate recommendations IR consulted for bone biopsy, but unable to do based on too small of a target. Will reach back out to vascular to see if amenable to performing biopsy. Vascular consulted podiatry for bone biopsy Podiatry did bone biopsy on 12/22/2021 cultures pending Awaiting ID Recs, PICC line ordered OPAT recommendations: - Start Metronidazole 500 mg po tid (this can be discontinued if no anaerobic growth is seen on final culture report, takes 5 days to finalize 12/27 expected report) ?? Daptomycin 6mg/kg IV q24H ?? Cefepime 2 gram IV q8H ?? PICC placement ?? Weekly lab monitoring with the following: CBC, CMP, CRP and CK level ?? Home health for PICC line care ?? Home health for weekly lab draw and PICC removal after completion of IV therapy ?? Ensure the patient will be followed by a local physician who can monitor his weekly labs ?? Business And Services Instructor patient on possible adverse effects of ABX and PICC line Discussed with CM, to find HH company Started with N/V/D Acidophilus bid PRN zofran KUB[-] ileus Bone biopsy negative, but will still need IV ABX till 02/02/22 per ID Per podiatry she will need to f/u with OP podiatry to have her sutures removed in one week Diabetic foot wound, left 4th digit Continue treatment above. MRI left foot ordered. > Negative for osteo ?? Diabetes Hold Sitagliptin and Trulicity Continue home basal insulin accu checks achs-s/s protocol A1c=7.7 on 12/08/21 Pt had hypoglycemic episodes on 12/19, that resolved. Home insulin dc'd. ssi started Now hyperglycemic. Will resume Lantus at low dose and titrate accordingly. Nighttime snack ordered. Nutritional started for elevated blood sugar Consider amitriptyline for neuropathy management, will defer to PCP Pt tells me that she is not taking the sitagliptan at home d/t it was making her itch and PCP told her to stop it, will not restart at DC Pt restarted on home regimen, BS controlled much better at this time Hx of multiple toe amputation-left foot Hx of Charcot foot-left Increased pain/swelling Xray left foot as above Neuro vascular checks Pain management monitor for toxicity Offered suppository today. Followed with Dr. Hernandez and Dr. Santiago in the past ?? Acute on chronic constipation No BM in 5 days KUB as above Intensify bowel regimen Continue to monitor carefully Resolved with resuming Linzess Hypokalemia-resolved K 3.3 Replace and monitor Hypomagnesemia-resolved Mg < 0.3 Replace and monitor CKD 2 Appears stable. Monitor closely.?? Hypertension Continue home BP medication Monitor BP and titrate to maitain target goal With a small bump in her creatinine lisinopril was also DC'd, will resume as warranted Patient tells me that she was not taking hydrochlorothiazide at home, this was dc'd and will not berestarted Hyperlipidemia Continue statin Obesity BMI 32.77 Encourage Lifestyle Changes ?? CODE: FULL CODE POA: Pt does not have a medical POA. Her medical point of contact is her spouse Dispo: Pending bone biposy and final ID recs ?? VTE: Heparin subcutaneous ? ELLEN JUSTICE Cosigned by Major Edmond MD at 12/26/2021 8:11 PM TEMPLATE INSPECTOR LATE INSPECTOR LATE INSPECTOR * Carlos Alberto Pacheco RN - 12/26/2021 5:52 AM CST Problem: Pain Goal: Patient's pain/discomfort is manageable [...] and interventions as needed. Outcome: Progressing Problem: Injury - Risk of, Abnormal Serum Glucose Level Goal: Glucose level within specified parameters Outcome: Progressing Problem: Reduced risk for falls/injury Goal: Reduced Risk for Falls/Injury Outcome: Progressing Goal: Reduced Risk of Confusion (Acute vs Chronic) Outcome: Progressing Goal: Reduced Risk of Symptomatic Depression Outcome: Progressing Goal: Reduced Risk of Altered Elimination Outcome: Progressing Goal: Reduced Risk of Dizziness/Vertigo/Balance Outcome: Progressing Goal: Reduced Risk of Polypharmacy Outcome: Progressing LATE INSPECTOR * Kortney Elias RN - 12/25/2021 6:33 PM CST Problem: Pain Goal: Patient's pain/discomfort is manageable [...] and interventions as needed. Outcome: Progressing Problem: Discharge Planning Goal: Knowledge of discharge instructions Outcome: Progressing Problem: Injury - Risk of, Abnormal Serum Glucose Level Goal: Glucose level within specified parameters Outcome: Progressing Problem: Constipation Goal: Bowel elimination within specified parameters Outcome: Progressing Problem: Pain - Acute Goal: Achieve acceptable pain level Outcome: Progressing Problem: Reduced risk for falls/injury Goal: Reduced Risk for Falls/Injury Outcome: Progressing Goal: Reduced Risk of Confusion (Acute vs Chronic) Outcome: Progressing Goal: Reduced Risk of Symptomatic Depression Outcome: Progressing Goal: Reduced Risk of Altered Elimination Outcome: Progressing Goal: Reduced Risk of Dizziness/Vertigo/Balance Outcome: Progressing Goal: Reduced Risk of Polypharmacy Outcome: Progressing LATE INSPECTOR * Erika Josue LCSW - 12/25/2021 3:26 PM CST Pt and spouse seen this date. Pt confirmed choice of [facility] for nursing in the home. SW contactedthe [facility] intake group and Rachel Pena with [facility] weekend staffing regarding the referral. They are evaluating their ability to staff but expect to be able to accept. As noted yesterday the signing physician for home IVABX and HH will need to be verified prior to pt's abiltiy to depart. [facility] can work to teach pt's dtr and spouse administration of the IVABX for home once pt's benefits are verified and any prior auth for the dapto is received. CM resuming care tomorrow and will finalizeplans. LATE INSPECTOR * ELLEN Justice - 12/25/2021 2:46 PM CST Hospitalist Daily Progress Note Subjective Patient started having nausea, vomiting and diarrhea overnight. Could be related to the daptomycin.But she also has a history of constipation and she has hypoactive bowel sounds. She denies any fever, chills or urinary symptoms at this time or shortness of breath. Objective Filed Vitals: 12/25/21 0038 12/25/21 0457 12/25/21 0724 12/25/21 1202 BP: 116/73 111/60 (!) 140/76 133/76 Pulse: 86 78 79 87 Resp: Temp: 97.9 ??F (36.6 ??C) 97.7 ??F (36.5 ??C) 97.5 ??F (36.4 ??C) 97.9 ??F (36.6 ??C) TempSrc: Oral Oral Oral Oral SpO2: 100% 98% 100% 100% Weight: 83.5 kg (184 lb 1.4 oz) Height: Intake/Output 24H Total: Intake/Output Summary (Last 24 hours) at 12/25/2021 1446 Last data filed at 12/25/2021 1004 Gross per 24 hour Intake 120 ml Output -- Net 120 ml Physical Exam: -GENERAL: No acute distress, Well nourished, Well developed -HEAD: Normocephalic, Atraumatic -EYES: Extraocular movements intact; PEERL -LUNGS: Effort normal, Clear to auscultation bilaterally, No wheezes, No crackles, No rhonchi -CVS: Regular rate and rhythm, S1 and S2 normal -ABDOMEN: Soft, Non tender, Non distended, +BS hypoactive today -EXT: No lower extremity edema -NEURO: Awake, alert, oriented, No gross neuro deficits -SKIN: Skin color, texture, turgor normal. Ulcerative wound to 2nd right toe anterior and posterior; wound to anterior right great toe. Ulceration to left 4th toe. Dusky discoloration to distal aspects of digits of left foot; calluses on plantar aspect of left foot, PICC RUE Medications ??? acidophilus 1 capsule Oral BID ??? amLODIPine 10 mg Oral nightly ??? atorvastatin 20 mg Oral Daily ??? cefepime 2 g Intravenous Q8H ??? cetirizine 10 mg Oral Daily ??? DAPTOmycin 6 mg/kg (Adjusted) Intravenous Q24H ??? docusate sodium 100 mg Oral BID ??? fluticasone propionate 1 spray Each Nostril Daily ??? heparin (porcine) 5,000 Units Subcutaneous 2 times per day ??? normal saline 5-10 mL Intracatheter Q24H And ??? heparin lock flush 3 mL Intracatheter Q24H ??? hydrOXYzine 25 mg Oral Nightly at bedtime ??? insulin aspart protamine-insulin aspart 65 Units Subcutaneous Daily with breakfast And ??? insulin aspart protamine-insulin aspart 55 Units Subcutaneous Daily with supper ??? insulin lispro 0-16 Units Subcutaneous TID AC And ??? insulin lispro 0-8 Units Subcutaneous Nightly at bedtime ??? linaCLOtide 145 mcg Oral QAM AC ??? metroNIDAZOLE 500 mg Oral 3 times per day ??? pantoprazole EC 40 mg Oral Daily ??? polyethylene glycol 1 packet Oral Daily ??? Senna 8.6 mg Oral Nightly at bedtime ??? Tdap 0.5 mL Intramuscular Once ??? lactated ringers Stopped (12/22/21 0732) acetaminophen, bisacodyl, bisacodyl EC, cyclobenzaprine, dextrose 10 % bolus, glucagon, glucose, normal saline AND normal saline AND normal saline AND heparin lock flush AND heparin lock flush AND Flush all central lines with 10ml syringe AND Use pulse flush technique with all central lines AND Change dressing AND Chlorhexidine Gluconate Cloth Bath, HYDROcodone-acetaminophen, morphine, naLOXone, ondansetron, ondansetron Labs, Imaging, Other Studies Recent Labs Lab 12/19/21 0530 12/20/21 0940 12/21/21 0742 12/22/21 0552 12/23/21 0355 12/24/21 0345 12/25/21 0342 WBC 8.6 8.3 7.3 8.6 8.2 7.4 9.3 RBC 3.74* 4.03* 4.08* 4.01* 3.45* 3.43* 3.40* HGB 11.3* 12.2 12.2 12.1 10.3* 10.3* 10.2* HCT 33.7* 36.4* 37.0* 36.2* 31.4* 30.9* 30.4* MCV 90.1 90.3 90.7 90.3 91.0 90.1 89.4 MCH 30.2 30.3 29.9 30.2 29.9 30.0 30.0 MCHC 33.5 33.5 33.0 33.4 32.8 33.3 33.6 PLT 289 319 293 321 259 247 244 RDW 12.9 12.8 12.9 12.7 12.8 12.8 12.8 MPV 10.8 11.1 10.7 10.9 11.1 11.1 11.1 PERNEU 53.4 60.2 55.5 46.7 70.5 58.0 55.9 PERLYM 39.1 32.6 36.5 46.8 22.0 33.6 35.8 PERMON 5.7 5.3 5.5 4.4 5.5 5.6 5.7 LYMC 3.35 2.71 2.65 4.01 1.81 2.47 3.33 MONOC 0.49 0.44 0.40 0.38 0.45 0.41 0.53 EOSC 0.08 0.09 0.11 0.10 0.08 0.15 0.18 BASOC 0.04 0.05 0.05 0.06 0.05 0.04 0.04 DTYPE AUTOMATED DIFFERENTIAL AUTOMATED DIFFERENTIAL AUTOMATED DIFFERENTIAL AUTOMATED DIFFERENTIAL AUTOMATED DIFFERENTIAL AUTOMATED DIFFERENTIAL AUTOMATED DIFFERENTIAL Recent Labs Lab 12/19/21 0530 12/20/21 0940 12/21/21 0742 12/22/21 0552 12/23/21 0355 12/24/21 0345 12/25/21 0342 NA 137 137 138 136 135* 137 138 K 4.5 4.8 4.7 4.6 5.6* 4.7 4.2 CL 105 105 105 105 106 107 107 CO2 28.8 26.8 28.6 25.9 23.6 25.2 25.3 AGAP 3.2* 5.2 4.4* 5.1 5.4 4.8* 5.7 BUN 21* 24* 26* 33* 28* 23* 27* CR 1.02 1.14* 1.21* 1.29* 1.11* 1.05* 1.02 BUNCREATININ 20.6 21.1 21.5 25.6 25.2 21.9 26.5* GLU 91 182* 162* 170* 251* 175* 142* CA 9.4 9.6 9.8 9.5 8.8 8.7 9.2 TP 8.0 -- -- -- -- -- 7.8 ALB 2.9* -- -- -- -- -- 2.8* TBIL 0.3 -- -- -- -- -- 0.2 ALKP 120 -- -- -- -- -- 184* AST 16 -- -- -- -- -- 38* ALT 22 -- -- -- -- -- 80* No results for input(s): APTT, INR, PTT in the last 168 hours. Recent Labs Lab 12/25/21 0342 CPK 71 No results for input(s): LACTICACID, PROCT in the last 168 hours. Results for orders placed or performed during the hospital encounter of 08/11/19 URINALYSIS, AUTO, COMPLETE Result Value Ref Range Specimen Type URINE CLEAN CATCH COLOR (U) LIGHT YELLOW TRANSPARENCY CLEAR Specific Taylor (U) 1.024 1.001 - 1.030 U PH 5.5 5.0 - 9.0 LEUKOCYTE ESTERASE NEGATIVE NEGATIVE NITRITES NEGATIVE NEGATIVE PROTEIN (U) 70 (H) <30 MG/DL URINE GLUCOSE 200 (A) NORMAL MG/DL U KETONES NEGATIVE NEGATIVE MG/DL UROBILINOGEN NORMAL NORMAL MG/DL BILIRUBIN (U) NEGATIVE NEGATIVE MG/DL BLOOD NEGATIVE NEGATIVE CULTURE & SENSITIVITY INDICATED? CULTURE IS NOT INDICATED MUCUS RARE /LPF WBC/HPF 1 <6 /HPF RBC/HPF 1 <6 /HPF BACTERIA (URINE) RARE (A) NONE /HPF SQUAMOUS EPITHELIALS RARE /HPF Imaging USV ART REST W ADRIANA LOW EXT Result Date: 12/16/2021 ARTERIAL DOPPLER - ADRIANA BILATERAL LOWER EXTREMITY VASCULAR LAB Pat.Name: TYSON MCNEAL Pat.ID:[id number] .Date: 12/16/2021 Refer.MD: Yasmin Segura Exam Time: 2:52:00 PM Study Type:MARINO VS Arterial Doppler Legs NOHEMY Height: 66in Age: 2 1970,51Y Sex: FEMALE Sonogrphr: Shahla Toscano RDMS, RVT Pat. Stat.:Outpatient Room: ER History / Clinical: Rt foot wounds. L>R severe leg pain. Lt foot cool to touch with weak pulse. PMH- DM. HTN. HLD. neurop. L2, L3 amp. BMI 39. Prior 06/21/21- Rt 1.12, Lt 1.24 Procedures: Doppler waveforms, Digit PPG, Systolic Pressures w/ADRIANA Race: -Congolese ++++++++++++++++++++++++++++++++++++ SUMMARY: ++++++++++++++++++++++++++++++++++++ Joceline ADRIANA Criteria: >1.30 = falsely elevated, calcified vessels; 1.00-1.29 = no signif ischemia at rest ; .80-.99 = mild PAD, asymptomatic; .50-.79 = moderate PAD, claudication; <.50 = severe PAD, rest pain;<.30 = critical PAD, necrosis, poor healing (Digits: DBI >.60 Normal; <.60 Abnormal) (Positive Stress eval: ADRIANA decrease of >.20 or >20% pressure drop) Right leg: Common Femoral waveform is triphasic, high amplitude; Popliteal triphasic, high amplitude; Posterior Tibial triphasic, medium amplitude with ADRIANA 0.959 ; DP/Anterior Tibial triphasic, high amplitude with ADRIANA 0.959 . Digit flow by PPG is not assessed due to wound with bandages. Left leg: Common Femoral waveform is triphasic, high amplitude; Popliteal biphasic, high amplitude; Posterior Tibial biphasic, medium amplitude with ADRIANA 0.973 ; DP/Anterior Tibial biphasic, medium amplitude with ADRIANA 1.08 . Digit flow by PPG is low amplitude with DBI 0.676 . Compared to previous exam done 06/21/2021 , there is no significant change. CONCLUSION: ++++++++++++++++++++++++++++++++++++ FINDINGS: ++++++++++++++++++++++++++++++++++++++++++++++++++++++++++++++++++++++++ MEASUREMENTS: ++++++++++++++++++++++++++++++++++++ DOPPLER Left E COMMERCE ARCHITECT E COMMERCE ARCHITECT PSV 123 cm/s Left Dist Pop A Dist Pop A PSV 94.2 cm/s Left Dist HORSE FARM MANAGER Dist HORSE FARM MANAGER PSV 46.2 cm/sLeft Dist DOMINGA Dist DOMINGA PSV 56.5 cm/s Right E COMMERCE ARCHITECT E COMMERCE ARCHITECT PSV 145 cm/s Right Dist Pop A Dist Pop A PSV 107cm/s Right Dist HORSE FARM MANAGER Dist HORSE FARM MANAGER PSV 56.5 cm/s Right Dist DOMINGA Dist DOMINGA PSV 82.8 cm/s PRESSURES Right Brachial Brach P 148 mmHg Right Ankle DP AnkleDP P 142 mmHg Right Ankle PT AnklePT P 142 mmHg Right ADRIANA PT ADRIANA PT 0.959 Right ADRIANA DP ADRIANA DP 0.959 Left Brachial Brach P 140 mmHg Left Ankle DP AnkleDP P 160 mmHg Left Ankle PT AnklePT P 144 mmHg Left Great Toe GreatToe P 100 mmHg Left ADRIANA PT ADRIANA PT 0.973Left ADRIANA DP ADRIANA DP 1.08 Left TBI TBI 0.676 Unsigned Hubert Hernandez M.D. XR ABD KUB Result Date: 12/16/2021 HISTORY: no BM in 5 days; n/v TECHNIQUE: Supine image(s) of the abdomen and pelvis were obtained on12/16/2001 at 1949 hours. COMPARISON: None. FINDINGS: LINES OR TUBES: None LUNG BASES: Unremarkable. BOWEL GAS PATTERN: There are no abnormally dilated loops of bowel. Multiple scattered tablets are throughout the abdomen FREE AIR: No free air is detected on this supine exam. CALCIFICATIONS/OTHER: None MUSCULOSKELETAL: The osseous structures are unremarkable. IMPRESSION: 1. No radiographic evidence of bowel obstruction. 2. Mild fecal burden is seen within the colon. Ordered By: WANDA MERCER Interpreted By: Mercy Irving MD, 12/16/2021 8:04 PM XR FOOT LT 3V Result Date: 11/29/2021 EXAMINATION: Left foot EXAM DATE: 11/28/2021 11:48 AM REASON FOR EXAM: pain Foot pain and swelling COMPARISON: 01/17/2021 TECHNIQUE: 3 views FINDINGS: Moderate soft tissue swelling. Hypertrophic bone and mixed sclerotic and lucent changes throughout the midfoot compatible withneuropathic disease, grossly stable. Bone spur suggests chronic plantar fasciitis. Status post second and third digit amputations. No obvious acute erosive changes to indicate acute osteomyelitis. Ifthere is clinical concern for acute osteomyelitis, MRI recommended. No evidence of fracture or dislocation. IMPRESSION: 1. Prior amputations and midfoot neuropathic disease, stable. No definite acute osteomyelitis, but if there is significant clinical concern for osteomyelitis, MRI is recommended. ReferredBy: Interpreted By: Isaías Jones MD, 11/29/2021 8:02 AM XR MULTI TOE RT Result Date: 12/16/2021 IMAGING STUDIES: XR MULTI TOE RT DATE: 12/16/2021 2:26 PM HISTORY: diabetic ulcers to right first and second toes 51-year-old female with diabetic ulcers of the right foot first and second toes. Reported ulcerations along the dorsal aspect of the right first toe and volar aspect of the right second toe and debrided. Additional history of increasing leg pain, left greater than right, with cool feet and weak pulses. COMPARISON: Right foot 01/17/2021. DISCUSSION: AP, oblique, and lateral views ofthe right foot. The posterior foot is excluded on lateral view. Subtle lucency along the distal medial aspect of the great toe near the level of the nailbed and of the medial tip of the second digit.On lateral view, small defect along the plantar aspect of the great toe distal phalanx but stable from 2020 study. No appreciable new fracture or erosion. No appreciable acute periosteal reaction. Maintained great toe interphalangeal joint space and second digit interphalangeal joint spaces. Old healed fracture of the proximal fifth metatarsal. Moderate degenerative changes in the midfoot. Plantar calcaneal spur. Atherosclerotic calcification in the distal leg and in the foot, including the digital arteries. IMPRESSION: No appreciable fracture, dislocation, periosteal reaction, or acute bony erosion. If clinical concern for osteomyelitis, MRI is a more sensitive test. Ordered By: DESIREE MACKENZIE Interpreted By: Angelito Tiwdell, 12/16/2021 2:50 PM XR FOOT LT 2V Result Date: 12/16/2021 PROCEDURE: XR FOOT LT 2V HISTORY: Left foot pain. COMPARISON: X-ray right foot TECHNIQUE: AP, lateral and oblique rotated views of the left foot were obtained. FINDINGS: There is no acute fracture orosseous malalignment identified. There are postsurgical changes from prior second and third toe amputations. Degenerative changes of the left midfoot is present. The joint spaces are maintained. There is a moderate plantar calcaneal enthesophyte. Mild soft swelling of the foot. IMPRESSION: 1. No acute osseous abnormality is identified. 2. Status post second and third toe amputations. 3. Mild soft tissue swelling of the left foot. Ordered By: WANDA MERCER Interpreted By: Mercy Irving MD, 12/16/2021 8:06 PM MRI right foot WO 12/17/21 1. Mild osteomyelitis of the distal first phalanx. 2. Mild osteomyelitis of the middle and distal second digit phalanges. 3. No drainable fluid collection or abscess. 4. 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 ??No evidence of acute osteomyelitis identified. 2. ??Advanced midfoot degenerative change. 12/25/2021 KUB Supine view of the abdomen and pelvis 2 images. Nonobstructive bowel gas pattern. Oval 11 mm calcification projecting just superior to the iliac crest at the level of L5 transverse process correlates to benign calcification anterior to the psoas muscle and lateral to the ureter onCT. ??Calcification along the right side at the L4 level is also evident on prior CT and not associated with the ureter. Numerous calcifications in the left upper quadrant splenic granulomas. ??Arterial vascular calcifications and phleboliths in the pelvis. ??Bilateral buttock injection granulomas. On the 10/29/2021 CT study, 2 mm right and 4 mm left nonobstructing renal calcifications but are notclearly evident on the current radiograph. Mild degenerative changes of the spine, pelvis, and hips Assessment & Plan Diabetic Foot Infection- Right foot with OM Xray toes of left foot as above Blood Cultures (12/16) - NGTD Lactate WNL=1.3 IV Ceftriaxone, IV Vancomycin Pharmacy to dose Vancomycin Neuro vascular checks Pain management monitor for toxicity Wound care Consult MRI Right Foot with mild OM to distal 1st phalanx and middle/distal 2nd phalanges ID consultation appreciated. Agree with abx, but recommend broadening Rocephin to cefepime. Recommended bone sample and then determine abx disposition. Prone to yeast infections w/ abx. Consider prophylactic diflucan. Will consult vascular. Appreciate recommendations IR consulted for bone biopsy, but unable to do based on too small of a target. Will reach back out to vascular to see if amenable to performing biopsy. Vascular consulted podiatry for bone biopsy Podiatry did bone biopsy on 12/22/2021 cultures pending Awaiting ID Recs, PICC line ordered OPAT recommendations: - Start Metronidazole 500 mg po tid (this can be discontinued if no anaerobic growth is seen on final culture report, takes 5 days to finalize 12/27 expected report) ?? Daptomycin 6mg/kg IV q24H ?? Cefepime 2 gram IV q8H ?? PICC placement ?? Weekly lab monitoring with the following: CBC, CMP, CRP and CK level ?? Home health for PICC line care ?? Home health for weekly lab draw and PICC removal after completion of IV therapy ?? Ensure the patient will be followed by a local physician who can monitor his weekly labs ?? 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 MRI left foot ordered. > Negative for osteo ?? Diabetes Hold Sitagliptin and Trulicity Continue home basal insulin accu checks achs-s/s protocol A1c=7.7 on 12/08/21 Pt had hypoglycemic episodes on 12/19, that resolved. Home insulin dc'd. ssi started Now hyperglycemic. Will resume Lantus at low dose and titrate accordingly. Nighttime snack ordered. Nutritional started for elevated blood sugar Consider amitriptyline for neuropathy management, will defer to PCP Pt tells me that she is not taking the sitagliptan at home d/t it was making her itch and PCP told her to stop it, will not restart at DC Hx of multiple toe amputation-left foot Hx of Charcot foot-left Increased pain/swelling Xray left foot as above Neuro vascular checks Pain management monitor for toxicity Offered suppository today. Followed with Dr. Hernandez and Dr. Santiago in the past ?? Acute on chronic constipation No BM in 5 days KUB as above Intensify bowel regimen Continue to monitor carefully Resolved with resuming Linzess Hypokalemia-resolved K 3.3 Replace and monitor Hypomagnesemia-resolved Mg < 0.3 Replace and monitor CKD 2 Appears stable. Monitor closely.?? Hypertension Continue home BP medication Monitor BP and titrate to maitain target goal With a small bump in her creatinine lisinopril was also DC'd, will resume as warranted Patient tells me that she was not taking hydrochlorothiazide at home, this was dc'd and will not berestarted Hyperlipidemia Continue statin Obesity BMI 32.77 Encourage Lifestyle Changes ?? CODE: FULL CODE POA: Pt does not have a medical POA. Her medical point of contact is her spouse Dispo: Pending bone biposy and final ID recs ?? VTE: Heparin subcutaneous ? ELLEN JUSTICE Cosigned by Major Edmond MD at 12/25/2021 8:54 PM TEMPLATE INSPECTOR LATE INSPECTOR LATE INSPECTOR * ELLEN Justice - 12/24/2021 2:42 PM CDT Hospitalist Daily Progress Note Subjective Patient seen and examined at the bedside, she states she slept much better last night and she is feeling much better today. ID will see her today to give recommendations. Bone biopsy is negative thusfar. No other acute issues noted. Objective Filed Vitals: 12/23/21 1957 12/24/21 0017 12/24/21 0422 12/24/21 0900 BP: 126/80 119/74 115/76 116/72 Pulse: 97 88 85 91 Resp: 16 16 18 Temp: 98.2 ??F (36.8 ??C) 98.1 ??F (36.7 ??C) 98.2 ??F (36.8 ??C) 98.2 ??F (36.8 ??C) TempSrc: Oral Oral Oral Oral SpO2: 100% 99% 100% Weight: Height: Intake/Output 24H Total: Intake/Output Summary (Last 24 hours) at 12/24/2021 1442 Last data filed at 12/24/2021 1100 Gross per 24 hour Intake 570 ml Output -- Net 570 ml Physical Exam: -GENERAL: No acute distress, Well nourished, Well developed -HEAD: Normocephalic, Atraumatic -EYES: Extraocular movements intact; PEERL -LUNGS: Effort normal, Clear to auscultation bilaterally, No wheezes, No crackles, No rhonchi -CVS: Regular rate and rhythm, S1 and S2 normal -ABDOMEN: Soft, Non tender, Non distended, +BS -EXT: No lower extremity edema -NEURO: Awake, alert, oriented, No gross neuro deficits -SKIN: Skin color, texture, turgor normal. Ulcerative wound to 2nd right toe anterior and posterior; wound to anterior right great toe. Ulceration to left 4th toe. Dusky discoloration to distal aspects of digits of left foot; calluses on plantar aspect of left foot, PICC RUE Medications ??? amLODIPine 10 mg Oral nightly ??? atorvastatin 20 mg Oral Daily ??? cefepime 2 g Intravenous Q8H ??? cetirizine 10 mg Oral Daily ??? DAPTOmycin 6 mg/kg (Adjusted) Intravenous Q24H ??? docusate sodium 100 mg Oral BID ??? fluticasone propionate 1 spray Each Nostril Daily ??? heparin (porcine) 5,000 Units Subcutaneous 2 times per day ??? normal saline 5-10 mL Intracatheter Q24H And ??? heparin lock flush 3 mL Intracatheter Q24H ??? hydrOXYzine 25 mg Oral Nightly at bedtime ??? insulin aspart protamine-insulin aspart 65 Units Subcutaneous Daily with breakfast And ??? insulin aspart protamine-insulin aspart 55 Units Subcutaneous Daily with supper ??? insulin lispro 0-16 Units Subcutaneous TID AC And ??? insulin lispro 0-8 Units Subcutaneous Nightly at bedtime ??? linaCLOtide 145 mcg Oral QAM AC ??? metroNIDAZOLE 500 mg Oral 3 times per day ??? pantoprazole EC 40 mg Oral Daily ??? polyethylene glycol 1 packet Oral Daily ??? Senna 8.6 mg Oral Nightly at bedtime ??? Tdap 0.5 mL Intramuscular Once ??? lactated ringers Stopped (12/22/21 0732) acetaminophen, bisacodyl, bisacodyl EC, cyclobenzaprine, dextrose 10 % bolus, glucagon, glucose, normal saline AND normal saline AND normal saline AND heparin lock flush AND heparin lock flush AND Flush all central lines with 10ml syringe AND Use pulse flush technique with all central lines AND Change dressing AND Chlorhexidine Gluconate Cloth Bath, HYDROcodone-acetaminophen, morphine, naLOXone, ondansetron Labs, Imaging, Other Studies Recent Labs Lab 12/18/21 0530 12/19/21 0530 12/20/21 0940 12/21/21 0742 12/22/21 0552 12/23/21 0355 12/24/21 0345 WBC 7.9 8.6 8.3 7.3 8.6 8.2 7.4 RBC 3.65* 3.74* 4.03* 4.08* 4.01* 3.45* 3.43* HGB 11.1* 11.3* 12.2 12.2 12.1 10.3* 10.3* HCT 32.6* 33.7* 36.4* 37.0* 36.2* 31.4* 30.9* MCV 89.3 90.1 90.3 90.7 90.3 91.0 90.1 MCH 30.4 30.2 30.3 29.9 30.2 29.9 30.0 MCHC 34.0 33.5 33.5 33.0 33.4 32.8 33.3 PLT 287 289 319 293 321 259 247 RDW 12.7 12.9 12.8 12.9 12.7 12.8 12.8 MPV 10.8 10.8 11.1 10.7 10.9 11.1 11.1 PERNEU 53.2 53.4 60.2 55.5 46.7 70.5 58.0 PERLYM 39.9 39.1 32.6 36.5 46.8 22.0 33.6 PERMON 5.0 5.7 5.3 5.5 4.4 5.5 5.6 LYMC 3.13 3.35 2.71 2.65 4.01 1.81 2.47 MONOC 0.39 0.49 0.44 0.40 0.38 0.45 0.41 EOSC 0.10 0.08 0.09 0.11 0.10 0.08 0.15 BASOC 0.04 0.04 0.05 0.05 0.06 0.05 0.04 DTYPE AUTOMATED DIFFERENTIAL AUTOMATED DIFFERENTIAL AUTOMATED DIFFERENTIAL AUTOMATED DIFFERENTIAL AUTOMATED DIFFERENTIAL AUTOMATED DIFFERENTIAL AUTOMATED DIFFERENTIAL Recent Labs Lab 12/18/21 0530 12/19/21 0530 12/20/21 0940 12/21/21 0742 12/22/21 0552 12/23/21 0355 12/24/21 0345 NA 139 137 137 138 136 135* 137 K 4.0 4.5 4.8 4.7 4.6 5.6* 4.7 CL 107 105 105 105 105 106 107 CO2 27.0 28.8 26.8 28.6 25.9 23.6 25.2 AGAP 5.0 3.2* 5.2 4.4* 5.1 5.4 4.8* BUN 19* 21* 24* 26* 33* 28* 23* CR 0.99 1.02 1.14* 1.21* 1.29* 1.11* 1.05* BUNCREATININ 19.2 20.6 21.1 21.5 25.6 25.2 21.9 GLU 131* 91 182* 162* 170* 251* 175* CA 8.9 9.4 9.6 9.8 9.5 8.8 8.7 TP 7.7 8.0 -- -- -- -- -- ALB 2.8* 2.9* -- -- -- -- -- TBIL 0.2 0.3 -- -- -- -- -- ALKP 118 120 -- -- -- -- -- AST 13* 16 -- -- -- -- -- ALT 17 22 -- -- -- -- -- No results for input(s): APTT, INR, PTT in the last 168 hours. No results for input(s): TROP, TROPIWB, CKMB, CPK in the last 168 hours. No results for input(s): LACTICACID, PROCT in the last 168 hours. Results for orders placed or performed during the hospital encounter of 08/11/19 URINALYSIS, AUTO, COMPLETE Result Value Ref Range Specimen Type URINE CLEAN CATCH COLOR (U) LIGHT YELLOW TRANSPARENCY CLEAR Specific Taylor (U) 1.024 1.001 - 1.030 U PH 5.5 5.0 - 9.0 LEUKOCYTE ESTERASE NEGATIVE NEGATIVE NITRITES NEGATIVE NEGATIVE PROTEIN (U) 70 (H) <30 MG/DL URINE GLUCOSE 200 (A) NORMAL MG/DL U KETONES NEGATIVE NEGATIVE MG/DL UROBILINOGEN NORMAL NORMAL MG/DL BILIRUBIN (U) NEGATIVE NEGATIVE MG/DL BLOOD NEGATIVE NEGATIVE CULTURE & SENSITIVITY INDICATED? CULTURE IS NOT INDICATED MUCUS RARE /LPF WBC/HPF 1 <6 /HPF RBC/HPF 1 <6 /HPF BACTERIA (URINE) RARE (A) NONE /HPF SQUAMOUS EPITHELIALS RARE /HPF Imaging USV ART REST W ADRIANA LOW EXT Result Date: 12/16/2021 ARTERIAL DOPPLER - ADRIANA BILATERAL LOWER EXTREMITY VASCULAR LAB Pat.Name: TYSON MCNEAL Pat.ID: [id number] .Date: 12/16/2021 Refer.: Yasmin Segura Exam Time: 2:52:00 PM Study Type:MARINO VS Arterial Doppler Legs NOHEMY Height: 66in Age: 2 1970,51Y Sex: FEMALE Sonogrphr: Shahla Toscano RDKY, RVT Pat. Stat.:Outpatient Room: ER History / Clinical: Rt foot wounds. L>R severe leg pain. Lt foot cool to touch with weak pulse. PMH- DM. HTN. HLD. neurop. L2, L3 amp. BMI 39. Prior 06/21/21- Rt 1.12, Lt 1.24 Procedures: Doppler waveforms, Digit PPG, Systolic Pressures w/ADRIANA Race: -Congolese ++++++++++++++++++++++++++++++++++++ SUMMARY: ++++++++++++++++++++++++++++++++++++ Joceline ADRIANA Criteria: >1.30 = falsely elevated, calcified vessels; 1.00-1.29 = no signif ischemia at rest ; .80-.99 = mild PAD, asymptomatic; .50-.79 = moderate PAD, claudication; <.50 = severe PAD, rest pain;<.30 = critical PAD, necrosis, poor healing (Digits: DBI >.60 Normal; <.60 Abnormal) (Positive Stress eval: ADRIANA decrease of >.20 or >20% pressure drop) Right leg: Common Femoral waveform is triphasic, high amplitude; Popliteal triphasic, high amplitude; Posterior Tibial triphasic, medium amplitude with ADRIANA 0.959 ; DP/Anterior Tibial triphasic, high amplitude with ADRIANA 0.959 . Digit flow by PPG is not assessed due to wound with bandages. Left leg: Common Femoral waveform is triphasic, high amplitude; Popliteal biphasic, high amplitude; Posterior Tibial biphasic, medium amplitude with ADRIANA 0.973 ; DP/Anterior Tibial biphasic, medium amplitude with ADRIANA 1.08 . Digit flow by PPG is low amplitude with DBI 0.676 . Compared to previous exam done 06/21/2021 , there is no significant change. CONCLUSION: ++++++++++++++++++++++++++++++++++++ FINDINGS: ++++++++++++++++++++++++++++++++++++++++++++++++++++++++++++++++++++++++ MEASUREMENTS: ++++++++++++++++++++++++++++++++++++ DOPPLER Left E COMMERCE ARCHITECT E COMMERCE ARCHITECT PSV 123 cm/s Left Dist Pop A Dist Pop A PSV 94.2 cm/s Left Dist HORSE FARM MANAGER Dist HORSE FARM MANAGER PSV 46.2 cm/s Left Dist DOMINGA Dist DOMINGA PSV 56.5 cm/s Right E COMMERCE ARCHITECT E COMMERCE ARCHITECT PSV 145 cm/s Right Dist Pop A Dist Pop A PSV 107 cm/s Right Dist HORSE FARM MANAGER Dist HORSE FARM MANAGER PSV 56.5 cm/s Right Dist DOMINGA Dist DOMINGA PSV 82.8 cm/s PRESSURES Right Brachial Brach P 148 mmHg Right Ankle DP AnkleDP P 142 mmHg Right Ankle PT AnklePT P 142 mmHg Right ADRIANA PT ADRIANA PT 0.959 Right ADRIANA DP ADRIANA DP 0.959 Left Brachial Brach P 140 mmHg Left Ankle DP AnkleDP P160 mmHg Left Ankle PT AnklePT P 144 mmHg Left Great Toe GreatToe P 100 mmHg Left ADRIANA PT ADRIANA PT 0.973 Left ADRIANA DP ADRIANA DP 1.08 Left TBI TBI 0.676 Unsigned Hubert Hernandez M.D. XR ABD KUB Result Date: 12/16/2021 HISTORY: no BM in 5 days; n/v TECHNIQUE: Supine image(s) of the abdomen and pelvis were obtained on12/16/2001 at 1949 hours. COMPARISON: None. FINDINGS: LINES OR TUBES: None LUNG BASES: Unremarkable. BOWEL GAS PATTERN: There are no abnormally dilated loops of bowel. Multiple scattered tablets are throughout the abdomen FREE AIR: No free air is detected on this supine exam. CALCIFICATIONS/OTHER: None MUSCULOSKELETAL: The osseous structures are unremarkable. IMPRESSION: 1. No radiographic evidence of bowel obstruction. 2. Mild fecal burden is seen within the colon. Ordered By: WANDA MERCER Interpreted By: Mercy Irving MD, 12/16/2021 8:04 PM XR FOOT LT 3V Result Date: 11/29/2021 EXAMINATION: Left foot EXAM DATE: 11/28/2021 11:48 AM REASON FOR EXAM: pain Foot pain and swelling COMPARISON: 01/17/2021 TECHNIQUE: 3 views FINDINGS: Moderate soft tissue swelling. Hypertrophic bone and mixed sclerotic and lucent changes throughout the midfoot compatible withneuropathic disease, grossly stable. Bone spur suggests chronic plantar fasciitis. Status post second and third digit amputations. No obvious acute erosive changes to indicate acute osteomyelitis. Ifthere is clinical concern for acute osteomyelitis, MRI recommended. No evidence of fracture or dislocation. IMPRESSION: 1. Prior amputations and midfoot neuropathic disease, stable. No definite acute osteomyelitis, but if there is significant clinical concern for osteomyelitis, MRI is recommended. ReferredBy: Interpreted By: Isaías Jones MD, 11/29/2021 8:02 AM XR MULTI TOE RT Result Date: 12/16/2021 IMAGING STUDIES: XR MULTI TOE RT DATE: 12/16/2021 2:26 PM HISTORY: diabetic ulcers to right first and second toes 51-year-old female with diabetic ulcers of the right foot first and second toes. Reported ulcerations along the dorsal aspect of the right first toe and volar aspect of the right secondtoe and debrided. Additional history of increasing leg pain, left greater than right, with cool feet and weak pulses. COMPARISON: Right foot 01/17/2021. DISCUSSION: AP, oblique, and lateral views of the right foot. The posterior foot is excluded on lateral view. Subtle lucency along the distal medial aspect of the great toe near the level of the nailbed and of the medial tip of the second digit. On lateral view, small defect along the plantar aspect of the great toe distal phalanx but stable from 2020 study. No appreciable new fracture or erosion. No appreciable acute periosteal reaction. Maintained great toe interphalangeal joint space and second digit interphalangeal joint spaces. Old healed fracture of the proximal fifth metatarsal. Moderate degenerative changes in the midfoot. Plantarcalcaneal spur. Atherosclerotic calcification in the distal leg and in the foot, including the digital arteries. IMPRESSION: No appreciable fracture, dislocation, periosteal reaction, or acute bony erosion. If clinical concern for osteomyelitis, MRI is a more sensitive test. Ordered By: DESIREE MACKENZIE Interpreted By: Angelito Tidwell, 12/16/2021 2:50 PM XR FOOT LT 2V Result Date: 12/16/2021 PROCEDURE: XR FOOT LT 2V HISTORY: Left foot pain. COMPARISON: X-ray right foot TECHNIQUE: AP, lateral and oblique rotated views of the left foot were obtained. FINDINGS: There is no acute fracture orosseous malalignment identified. There are postsurgical changes from prior second and third toe amputations. Degenerative changes of the left midfoot is present. The joint spaces are maintained. There is a moderate plantar calcaneal enthesophyte. Mild soft swelling of the foot. IMPRESSION: 1. No acute osseous abnormality is identified. 2. Status post second and third toe amputations. 3. Mild soft tissue swelling of the left foot. Ordered By: WANDA MERCER Interpreted By: Mercy Irving MD, 12/16/2021 8:06 PM MRI right foot WO 12/17/21 1. Mild osteomyelitis of the distal first phalanx. 2. Mild osteomyelitis of the middle and distal second digit phalanges. 3. No drainable fluid collection or abscess. 4. 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 ??No evidence of acute osteomyelitis identified. 2. ??Advanced midfoot degenerative change. Assessment & Plan Diabetic Foot Infection- Right foot with OM Xray toes of left foot as above Blood Cultures (12/16) - NGTD Lactate WNL=1.3 IV Ceftriaxone, IV Vancomycin Pharmacy to dose Vancomycin Neuro vascular checks Pain management monitor for toxicity Wound care Consult MRI Right Foot with mild OM to distal 1st phalanx and middle/distal 2nd phalanges ID consultation appreciated. Agree with abx, but recommend broadening Rocephin to cefepime. Recommended bone sample and then determine abx disposition. Prone to yeast infections w/ abx. Consider prophylactic diflucan. Will consult vascular. Appreciate recommendations IR consulted for bone biopsy, but unable to do based on too small of a target. Will reach back out to vascular to see if amenable to performing biopsy. Vascular consulted podiatry for bone biopsy Podiatry did bone biopsy on 12/22/2021 cultures pending Awaiting ID Recs, PICC line ordered OPAT recommendations: ?? Daptomycin 6mg/kg IV q24H ?? Cefepime 2 gram IV q8H ?? PICC placement ?? Weekly lab monitoring with the following: CBC, CMP, CRP and CK level ?? Home health for PICC line care ?? Home health for weekly lab draw and PICC removal after completion of IV therapy ?? Ensure the patient will be followed by a local physician who can monitor his weekly labs ?? 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 MRI left foot ordered. > Negative for osteo ?? Diabetes Hold Sitagliptin and Trulicity Continue home basal insulin accu checks achs-s/s protocol A1c=7.7 on 12/08/21 Pt had hypoglycemic episodes on 12/19, that resolved. Home insulin dc'd. ssi started Now hyperglycemic. Will resume Lantus at low dose and titrate accordingly. Nighttime snack ordered. Nutritional started for elevated blood sugar Consider amitriptyline for neuropathy management, will defer to PCP Pt tells me that she is not taking the sitagliptan at home d/t it was making her itch and PCP told her to stop it, will not restart at DC ??Hx of multiple toe amputation-left foot Hx of Charcot foot-left Increased pain/swelling Xray left foot as above Neuro vascular checks Pain management monitor for toxicity Offered suppository today. Followed with Dr. Hernandez and Dr. Santiago in the past ?? Acute on chronic constipation No BM in 5 days KUB as above Intensify bowel regimen Continue to monitor carefully Resolved with resuming Linzess Hypokalemia-resolved K 3.3 Replace and monitor Hypomagnesemia-resolved Mg < 0.3 Replace and monitor CKD 2 Appears stable. Monitor closely.?? Hypertension Continue home BP medication Monitor BP and titrate to maitain target goal With a small bump in her creatinine lisinopril was also DC'd, will resume as warranted Patient tells me that she was not taking hydrochlorothiazide at home, this was dc'd and will not berestarted Hyperlipidemia Continue statin Obesity BMI 32.77 Encourage Lifestyle Changes ?? CODE: FULL CODE POA: Pt does not have a medical POA. Her medical point of contact is her spouse Dispo: Pending bone biposy and final ID recs ?? VTE: Heparin subcutaneous ? ELLEN JUSTICE Cosigned by Major Edmond MD at 12/24/2021 11:42 PM CDT * Erika Josue LCSW - 12/24/2021 2:15 PM CDT Pt seen this date. The recommendations for the course of IVABX has been given this date. In speaking with the pt she does want to go home. Motor And [employer] Tester has provided a complete list of the following types of agencies, HHC and Infusion Services. , to Patient utilizing the Silvervue tablet. I have explainedthat the tablets will display becerril quality metrics along with any entity in which [facility] has a vested i nterest to disclose any financial obligations. Selected options were discussed and Tyson Mcneal voiced a preference to review the HH list with her spouse and dtr but did not have a preference for the infusion company to supply the medications.. Referrals will be made based on Tyson Jennifernatasha Mcnealpreference once she has chosen a HH agency. She did not have a preference for a home infusion company about which I discussed her case with Arelis from [facility]. [facility] will need benefits verified under pt's HMO plan as well as anticipated need for prior auth for the daptomycin.. Fabricekeshawn sent the referral to [facility] following my conversation with the pt. Pt has vision issues and is anticpated to struggle to be able to self administer the IV ABX. She has spoken to her spouse and dtr who are willing to learn once some details have been verified that pt has coverage. Additionally the signing physician for home IVABX and HH will need to be verified prior to departure. * Jarred Mahajan, PharmD - 12/24/2021 11:17 AM CDT Vancomycin Pharmacy to Dose Day #8 Ordering Provider: Dr. Urbina Indication: osteomyelitis AUC goal: 400-600 Individualized trough goal: 8.0-12.0mg/L Height 12/16/21 5' 6 (1.676 m) Weight 12/16/21 82.6 kg (182 lb) Date: WBC: SCR: CRCL: TMAX: LEVEL: 12/16 12.1 1.0 72.9ml/min 98.1 12/17 7.9 0.92 83.6ml/min 98.1 12/18 7.9 0.99 77.7ml/min 98.2 22.9 12/19 8.6 1.02 76.2 98.2 22.4 11 8.3 1.14 68.7 98.4 12/21 7.3 1.21 64.7 98.2 23.4 12/22 8.6 1.29 60.7 98.9 12/23 8.2 1.11 70.5 98.1 12/24 7.4 1.05 74.6 98.4 Other ABX: - Cefepime Cultures/Tests: - Blood x 2 (12/16): NG5D - Wound (right toe): No growth, day 1 - Covid - negative - Wound cx 12/22: NGTD - R toes XR (12/16): No appreciable fracture, dislocation, periosteal reaction, or acute bony erosion. If clinical concern for osteomyelitis, MRI is a more sensitive test. - L foot XR (12/16): No acute osseous abnormality is identified... - R foot MRI (12/17): 1. Mild osteomyelitis of the distal first phalanx. 2. Mild osteomyelitis of the middle and distal second digit phalanges... Kinetics Assessment (12/23): Loading dose: N/A Regimen: 2000 mg IV every 48 hours. Start time: 12:38 on 12/23/2021 Exposure target: AUC24 (range)400-600 mg/L.hr AUC24,ss: 485 mg/L.hr PAUC*: 97 % Ctrough,ss: 10.0 mg/L Pconc*: 0 % Tox.: 6 % A/P: 51 YOF with PMH including hypertension, hyperlipidemia, history of COVID-19 infection in 2019, Diabetes with neuropathy and charcot foot; hx of multiple toe amputations of left foot ordered vancomycin [id number] for diabetic foot infection. Patient received a 1500 mg vancomycin loading dose in the ER followed by 1500 mg every 24 hours. Right foot MRI showed mild osteomyelitis to distal 1st phalanx and middle/distal 2nd phalanges. ID and Vascular following. Patient underwent needle bone biopsy on 12/22 of the 1st and 2nd digits of rt foot. Patient is currently on a 2000 mg q48h vancomycin regimen with the next anticipated dose for tonight at 1830. Will continue with the current regimen as [facility] continues to identify as appropriate safe therapy fortreatment. Random level is scheduled for tomorrow with AM labs. Will continue to follow, thank you. * Merrill Arias RN - 12/24/2021 12:44 AM CDT Problem: Pain Goal: Patient's pain/discomfort [...] to cope with his/her illness. Outcome: Progressing Problem: Injury - Risk of, Abnormal Serum Glucose Level Goal: Glucose level within specified parameters Outcome: Progressing Problem: Constipation Goal: Bowel elimination within specified parameters Outcome: Progressing Problem: Reduced risk for falls/injury Goal: Reduced Risk for Falls/Injury Outcome: Progressing * Salma Martinez PharmD - 12/23/2021 4:02 PM CDT Images from the original note were not included. Vancomycin Pharmacy to Dose Day #7 Ordering Provider: Dr. Urbina Indication: osteomyelitis AUC goal: 400-600 Individualized trough goal: 8.0-12.0mg/L Height 12/16/21 5' 6 (1.676 m) Weight 12/16/21 82.6 kg (182 lb) Date: WBC: SCR: CRCL: TMAX: LEVEL: 12/16 12.1 1.0 72.9ml/min 98.1 12/17 7.9 0.92 83.6ml/min 98.1 12/18 7.9 0.99 77.7ml/min 98.2 22.9 12/19 8.6 1.02 76.2 98.2 22.4 12/20 8.3 1.14 68.7 98.4 12/21 7.3 1.21 64.7 98.2 23.4 12/22 8.6 1.29 60.7 98.9 12/23 8.2 1.11 70.5 98.1 Other ABX: - Cefepime Cultures/Tests: - Blood x 2 (12/16): NG5D -Wound (right toe): No growth, day 1 - R toes XR (12/16): No appreciable fracture, dislocation, periosteal reaction, or acute bony erosion. If clinical concern for osteomyelitis, MRI is a more sensitive test. - L foot XR (12/16): No acute osseous abnormality is identified... - R foot MRI (12/17): 1. Mild osteomyelitis of the distal first phalanx. 2. Mild osteomyelitis of the middle and distal second digit phalanges... Kinetics Assessment (12/23): Loading dose: N/A Regimen: 2000 mg IV every 48 hours. Start time: 12:38 on 12/23/2021 Exposure target: AUC24 (range)400-600 mg/L.hr AUC24,ss: 485 mg/L.hr PAUC*: 97 % Ctrough,ss: 10.0 mg/L Pconc*: 0 % Tox.: 6 % A/P: 51 YOF with PMH including hypertension, hyperlipidemia, history of COVID-19 infection in 2019, Diabetes with neuropathy and charcot foot; hx of multiple toe amputations of left foot ordered vancomycin [id number] for diabetic foot infection. Patient received a 1500 mg vancomycin loading dose in the ER followed by 1500 mg every 24 hours. Right foot MRI showed mild osteomyelitis to distal 1st phalanx and middle/distal 2nd phalanges. ID and Vascular following. Continue Vancomycin IV 2000mg q48h, administering next dose tomorrow (12/24). This is appropriate per [facility] data. IR unable to perform bone biopsy per notes and so Podiatry now consulted. Left foot MRI negative for osteomyelitis though right foot MRI did confirm so anticipating long therapy course. Awaiting wound cultures from right toe. Will plan to get a random level on 12/26 with AM labs unless patient's clinical status changes drastically and needs to be drawn sooner. Will continue to follow, thank you. Annika Pringle, RudiD Candidate Salma Martinez PharmD, BCPS * Shana Martinez, HUMAN RESOURCES ADMIN - 12/23/2021 3:56 PM CDT 12/23 Discussed in rounds, awaiting final recommendations from ID for IV antibiotics post discharge cw * Leah Patel RN - 12/23/2021 3:40 PM CDT Problem: Pain Goal: Patient's pain/discomfort [...] and interventions as needed. Outcome: Progressing * ELLEN Justice - 12/23/2021 2:15 PM CDT Hospitalist Daily Progress Note Subjective Patient seen and examined at the bedside this morning she had her PICC line placed last evening, she said it was terrible and very painful and uncomfortable. Tells me that she did not sleep well mostof the night due to the discomfort from the line being placed. She is tearful this morning about not getting much sleep and having this large IV placed. Compassion and comfort given. She states that her will be coming up shortly to be with her. But denies any fever, chills, nausea, shortness of breath, cough. Objective Filed Vitals: 12/22/21195412/23/21 0027 12/23/21 0415 12/23/21 0821 BP: (!) 136/90 (!) 143/88 134/75 124/67 Pulse: 87 80 84 83 Resp: 14 18 12 16 Temp: 98.1 ??F (36.7 ??C) 97.7 ??F (36.5 ??C) 97.9 ??F (36.6 ??C) 98.1 ??F (36.7 ??C) TempSrc: Oral Oral Oral Oral SpO2: 100% 100% 100% Weight: Height: Intake/Output 24H Total: Intake/Output Summary (Last 24 hours) at 12/23/2021 1415 Last data filed at 12/22/20212009 Gross per 24 hour Intake 690 ml Output -- Net 690 ml Physical Exam: -GENERAL: No acute distress, Well nourished, Well developed -HEAD: Normocephalic, Atraumatic -EYES: Extraocular movements intact; PEERL -LUNGS: Effort normal, Clear to auscultation bilaterally, No wheezes, No crackles, No rhonchi -CVS: Regular rate and rhythm, S1 and S2 normal -ABDOMEN: Soft, Non tender, Non distended, +BS -EXT: No lower extremity edema -NEURO: Awake, alert, oriented, No gross neuro deficits -SKIN: Skin color, texture, turgor normal. Ulcerative wound to 2nd right toe anterior and posterior; wound to anterior right great toe. Ulceration to left 4th toe. Dusky discoloration to distal aspects of digits of left foot; calluses on plantar aspect of left foot, PICC RUE Medications ??? amLODIPine 10 mg Oral nightly ??? atorvastatin 20 mg Oral Daily ??? cefepime 2 g Intravenous Q8H ??? docusate sodium 100 mg Oral BID ??? heparin (porcine) 5,000 Units Subcutaneous 2 times per day ??? normal saline 5-10 mL Intracatheter Q24H And ??? heparin lock flush 3 mL Intracatheter Q24H ??? hydrOXYzine 25 mg Oral Nightly at bedtime ??? insulin glargine 30 Units Subcutaneous Nightly at bedtime And ??? insulin lispro 15 Units Subcutaneous TID AC ??? insulin lispro 0-16 Units Subcutaneous TID AC And ??? insulin lispro 0-8 Units Subcutaneous Nightly at bedtime ??? linaCLOtide 145 mcg Oral QAM AC ??? pantoprazole EC 40 mg Oral Daily ??? polyethylene glycol 1 packet Oral Daily ??? Senna 8.6 mg Oral Nightly at bedtime ??? Tdap 0.5 mL Intramuscular Once ??? vancomycin 2,000 mg Intravenous Q48H ??? vancomycin pharmacy to dose Intravenous See Admin Instructions ??? lactated ringers Stopped (12/22/21 0732) acetaminophen, bisacodyl, bisacodyl EC, cyclobenzaprine, dextrose 10 % bolus, glucagon, glucose, normal saline AND normal saline AND normal saline AND heparin lock flush AND heparin lock flush AND Flush all central lines with 10ml syringe AND Use pulse flush technique with all central lines AND Change dressing AND Chlorhexidine Gluconate Cloth Bath, HYDROcodone-acetaminophen, morphine, naLOXone, ondansetron Labs, Imaging, Other Studies Recent Labs Lab 12/17/21 0610 12/18/21 0530 12/19/21 0530 12/20/21 0940 12/21/21 0742 12/22/21 0552 12/23/21 0355 WBC 7.9 7.9 8.6 8.3 7.3 8.6 8.2 RBC 3.99* 3.65* 3.74* 4.03* 4.08* 4.01* 3.45* HGB 12.2 11.1* 11.3* 12.2 12.2 12.1 10.3* HCT 36.2* 32.6* 33.7* 36.4* 37.0* 36.2* 31.4* MCV 90.7 89.3 90.1 90.3 90.7 90.3 91.0 MCH 30.6 30.4 30.2 30.3 29.9 30.2 29.9 MCHC 33.7 34.0 33.5 33.5 33.0 33.4 32.8 PLT 292 287 289 319 293 321 259 RDW 12.8 12.7 12.9 12.8 12.9 12.7 12.8 MPV 10.9 10.8 10.8 11.1 10.7 10.9 11.1 PERNEU 54.5 53.2 53.4 60.2 55.5 46.7 70.5 PERLYM 38.5 39.9 39.1 32.6 36.5 46.8 22.0 PERMON 5.2 5.0 5.7 5.3 5.5 4.4 5.5 LYMC 3.06 3.13 3.35 2.71 2.65 4.01 1.81 MONOC 0.41 0.39 0.49 0.44 0.40 0.38 0.45 EOSC 0.09 0.10 0.08 0.09 0.11 0.10 0.08 BASOC 0.03 0.04 0.04 0.05 0.05 0.06 0.05 DTYPE AUTOMATED DIFFERENTIAL AUTOMATED DIFFERENTIAL AUTOMATED DIFFERENTIAL AUTOMATED DIFFERENTIAL AUTOMATED DIFFERENTIAL AUTOMATED DIFFERENTIAL AUTOMATED DIFFERENTIAL Recent Labs Lab 12/16/21 1420 12/17/21 0610 12/18/21 0530 12/19/21 0530 12/20/21 0940 12/21/21 0742 12/22/21 0552 12/23/21 0355 NA 137 137 139 137 137 138 136 135* K 3.3* 3.9 4.0 4.5 4.8 4.7 4.6 5.6* CL 104 105 107 105 105 105 105 106 CO2 28.5 29.7 27.0 28.8 26.8 28.6 25.9 23.6 AGAP 4.5* 2.3* 5.0 3.2* 5.2 4.4* 5.1 5.4 BUN 15 17 19* 21* 24* 26* 33* 28* CR 1.00 0.92 0.99 1.02 1.14* 1.21* 1.29* 1.11* BUNCREATININ 15.0 18.5 19.2 20.6 21.1 21.5 25.6 25.2 GLU 141* 154* 131* 91 182* 162* 170* 251* CA 9.8 9.2 8.9 9.4 9.6 9.8 9.5 8.8 TP 9.8* 8.2 7.7 8.0 -- -- -- -- ALB 3.6 3.1* 2.8* 2.9* -- -- -- -- TBIL 0.4 0.4 0.2 0.3 -- -- -- -- ALKP 146* 126 118 120 -- -- -- -- AST 17 14* 13* 16 -- -- -- -- ALT 23 20 17 22 -- -- -- -- Recent Labs Lab 12/16/21 1834 INR 1.0 PTT 26.5 Recent Labs Lab 12/16/21 1420 12/16/21 1425 TROP -- 7 CPK 185 -- No results for input(s): LACTICACID, PROCT in the last 168 hours. Results for orders placed or performed during the hospital encounter of 08/11/19 URINALYSIS, AUTO, COMPLETE Result Value Ref Range Specimen Type URINE CLEAN CATCH COLOR (U) LIGHT YELLOW TRANSPARENCY CLEAR Specific Taylor (U) 1.024 1.001 - 1.030 U PH 5.5 5.0 - 9.0 LEUKOCYTE ESTERASE NEGATIVE NEGATIVE NITRITES NEGATIVE NEGATIVE PROTEIN (U) 70 (H) <30 MG/DL URINE GLUCOSE 200 (A) NORMAL MG/DL U KETONES NEGATIVE NEGATIVE MG/DL UROBILINOGEN NORMAL NORMAL MG/DL BILIRUBIN (U) NEGATIVE NEGATIVE MG/DL BLOOD NEGATIVE NEGATIVE CULTURE & SENSITIVITY INDICATED? CULTURE IS NOT INDICATED MUCUS RARE /LPF WBC/HPF 1 <6 /HPF RBC/HPF 1 <6 /HPF BACTERIA (URINE) RARE (A) NONE /HPF SQUAMOUS EPITHELIALS RARE /HPF Imaging USV ART REST W ADRIANA LOW EXT Result Date: 12/16/2021 ARTERIAL DOPPLER - ADRIANA BILATERAL LOWER EXTREMITY VASCULAR LAB Pat.Name: TYSON MCNEAL Pat.ID: [id number] .Date: 12/16/2021 Refer.MD: Yasmin Segura Exam Time: 2:52:00 PM Study Type:MARINO VS Arterial Doppler Legs NOHEMY Height: 66in Age: 2 1970,51Y Sex: FEMALE Sonogrphr: Shahla Toscano RDMS, RVT Pat. Stat.:Outpatient Room: ER History / Clinical: Rt foot wounds. L>R severe leg pain. Lt foot cool to touch with weak pulse. PMH- DM. HTN. HLD. neurop. L2, L3 amp. BMI 39. Prior 06/21/21- Rt 1.12, Lt 1.24 Procedures: Doppler waveforms, Digit PPG, Systolic Pressures w/ADRIANA Race: -Congolese ++++++++++++++++++++++++++++++++++++ SUMMARY: ++++++++++++++++++++++++++++++++++++ Joceline ADRIANA Criteria: >1.30 = falsely elevated, calcified vessels; 1.00-1.29 = no signif ischemia at rest ; .80-.99 = mild PAD, asymptomatic; .50-.79 = moderate PAD, claudication; <.50 = severe PAD, rest pain;<.30 = critical PAD, necrosis, poor healing (Digits: DBI >.60 Normal; <.60 Abnormal) (Positive Stress eval: ADRIANA decrease of >.20 or >20% pressure drop) Right leg: Common Femoral waveform is triphasic, high amplitude; Popliteal triphasic, high amplitude; Posterior Tibial triphasic, medium amplitude with ADRIANA 0.959 ; DP/Anterior Tibial triphasic, high amplitude with ADRIANA 0.959 . Digitflow by PPG is not assessed due to wound with bandages. Left leg: Common Femoral waveform is triphasic, high amplitude; Popliteal biphasic, high amplitude; Posterior Tibial biphasic, medium amplitudewith ADRIANA 0.973 ; DP/Anterior Tibial biphasic, medium amplitude with ADRIANA 1.08 . Digit flow by PPG islow amplitude with DBI 0.676 . Compared to previous exam done 06/21/2021 , there is no significant change. CONCLUSION: ++++++++++++++++++++++++++++++++++++ FINDINGS: ++++++++++++++++++++++++++++++++++++ ++++++++++++++++++++++++++++++++++++ MEASUREMENTS: ++++++++++++++++++++++++++++++++++++ DOPPLER Left E COMMERCE ARCHITECT E COMMERCE ARCHITECT PSV 123 cm/s Left Dist Pop A Dist Pop A PSV 94.2 cm/s Left Dist HORSE FARM MANAGER Dist HORSE FARM MANAGER PSV 46.2 cm/s Left Dist DOMINGA Dist DOMINGA PSV 56.5 cm/s Right E COMMERCE ARCHITECT E COMMERCE ARCHITECT PSV 145 cm/s Right Dist Pop A Dist Pop A PSV 107 cm/s Right Dist HORSE FARM MANAGER Dist HORSE FARM MANAGER PSV 56.5 cm/s Right Dist DOMINGA Dist DOMINGA PSV 82.8 cm/s PRESSURES Right Brachial Brach P 148 mmHg Right Ankle DP AnkleDP P 142 mmHg Right Ankle PT AnklePT P 142 mmHg Right ADRIANA PT ADRIANA PT 0.959 Right ADRIANA DP ADRIANA DP 0.959 Left Brachial Brach P 140 mmHg Left Ankle DP AnkleDP P 160 mmHg Left Ankle PT AnklePT P 144 mmHg Left Great Toe GreatToe P 100 mmHg Left ADRIANA PT ADRIANA PT 0.973 Left ADRIANA DP ADRIANA DP 1.08 Left TBI TBI 0.676 Unsigned Hubert Hernandez M.D. XR ABD KUB Result Date: 12/16/2021 HISTORY: no BM in 5 days; n/v TECHNIQUE: Supine image(s) of the abdomen and pelvis were obtained on12/16/2001 at 1949 hours. COMPARISON: None. FINDINGS: LINES OR TUBES: None LUNG BASES: Unremarkable. BOWEL GAS PATTERN: There are no abnormally dilated loops of bowel. Multiple scattered tablets are throughout the abdomen FREE AIR: No free air is detected on this supine exam. CALCIFICATIONS/OTHER:None MUSCULOSKELETAL: The osseous structures are unremarkable. IMPRESSION: 1. No radiographic evidence of bowel obstruction. 2. Mild fecal burden is seen within the colon. Ordered By: WANDA MERCER Interpreted By: Mercy Irving MD, 12/16/2021 8:04 PM XR FOOT LT 3V Result Date: 11/29/2021 EXAMINATION: Left foot EXAM DATE: 11/28/2021 11:48 AM REASON FOR EXAM: pain Foot pain and swelling COMPARISON: 01/17/2021 TECHNIQUE: 3 views FINDINGS: Moderate soft tissue swelling. Hypertrophic bone and mixed sclerotic and lucent changes throughout the midfoot compatible withneuropathic disease, grossly stable. Bone spur suggests chronic plantar fasciitis. Status post second and third digit amputations. No obvious acute erosive changes to indicate acute osteomyelitis. Ifthere is clinical concern for acute osteomyelitis, MRI recommended. No evidence of fracture or dislocation. IMPRESSION: 1. Prior amputations and midfoot neuropathic disease, stable. No definite acute osteomyelitis, but if there is significant clinical concern for osteomyelitis, MRI is recommended. ReferredBy: Interpreted By: Isaías Jones MD, 11/29/2021 8:02 AM XR MULTI TOE RT Result Date: 12/16/2021 IMAGING STUDIES: XR MULTI TOE RT DATE: 12/16/2021 2:26 PM HISTORY: diabetic ulcers to right first and second toes 51-year-old female with diabetic ulcers of the right foot first and second toes. Reported ulcerations along the dorsal aspect of the right first toe and volar aspect of the right second toe and debrided. Additional history of increasing leg pain, left greater than right, with cool feet and weak pulses. COMPARISON: Right foot 01/17/2021. DISCUSSION: AP, oblique, and lateral views ofthe right foot. The posterior foot is excluded on lateral view. Subtle lucency along the distal medial aspect of the great toe near the level of the nailbed and of the medial tip of the second digit.On lateral view, small defect along the plantar aspect of the great toe distal phalanx but stable from 2020 study. No appreciable new fracture or erosion. No appreciable acute periosteal reaction. Maintained great toe interphalangeal joint space and second digit interphalangeal joint spaces. Old healed fracture of the proximal fifth metatarsal. Moderate degenerative changes in the midfoot. Plantar calcaneal spur. Atherosclerotic calcification in the distal leg and in the foot, including the digital arteries. IMPRESSION: No appreciable fracture, dislocation, periosteal reaction, or acute bony erosion. If clinical concern for osteomyelitis, MRI is a more sensitive test. Ordered By: DESIREE MACKENZIE Interpreted By: Angelito Tidwell, 12/16/2021 2:50 PM XR FOOT LT 2V Result Date: 12/16/2021 PROCEDURE: XR FOOT LT 2V HISTORY: Left foot pain. COMPARISON: X-ray right foot TECHNIQUE: AP, lateral and oblique rotated views of the left foot were obtained. FINDINGS: There is no acute fracture or osseous malalignment identified. There are postsurgical changes from prior second and third toe amputations. Degenerative changes of the left midfoot is present. The joint spaces are maintained. There is a moderate plantar calcaneal enthesophyte. Mild soft swelling of the foot. IMPRESSION: 1. No acute osseous abnormality is identified. 2. Status post second and third toe amputations. 3. Mild soft tissue swelling of the left foot. Ordered By: WANDA MERCER Interpreted By: Mercy Irving MD, 12/16/2021 8:06 PM MRI right foot WO 12/17/21 1. Mild osteomyelitis of the distal first phalanx. 2. Mild osteomyelitis of the middle and distal second digit phalanges. 3. No drainable fluid collection or abscess. 4. 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 ??No evidence of acute osteomyelitis identified. 2. ??Advanced midfoot degenerative change. Assessment & Plan Diabetic Foot Infection- Right foot with OM Xray toes of left foot as above Blood Cultures (12/16) - NGTD Lactate WNL=1.3 IV Ceftriaxone, IV Vancomycin Pharmacy to dose Vancomycin Neuro vascular checks Pain management monitor for toxicity Wound care Consult MRI Right Foot with mild OM to distal 1st phalanx and middle/distal 2nd phalanges ID consultation appreciated. Agree with abx, but recommend broadening Rocephin to cefepime. Recommended bone sample and then determine abx disposition. Prone to yeast infections w/ abx. Consider prophylactic diflucan. Will consult vascular. Appreciate recommendations IR consulted for bone biopsy, but unable to do based on too small of a target. Will reach back out to vascular to see if amenable to performing biopsy. Vascular consulted podiatry for bone biopsy Podiatry did bone biopsy on 12/22/2021 cultures pending Awaiting ID Recs, PICC line ordered Diabetic foot wound, left 4th digit Continue treatment above. MRI left foot ordered. > Negative for osteo ?? Diabetes Hold Sitagliptin and Trulicity Continue home basal insulin accu checks [facility]-s/s protocol A1c=7.7 on 12/08/21 Pt had hypoglycemic episodes on 12/19, that resolved. Home insulin dc'd. ssi started Now hyperglycemic. Will resume Lantus at low dose and titrate accordingly. Nighttime snack ordered. Nutritional started for elevated blood sugar Consider amitriptyline for neuropathy management, will defer to PCP Pt tells me that she is not taking the sitagliptan at home d/t it was making her itch and PCP told her to stop it, will not restart at DC ?? Hx of multiple toe amputation-left foot Hx of Charcot foot-left Increased pain/swelling Xray left foot as above Neuro vascular checks Pain management monitor for toxicity Offered suppository today. Followed with Dr. Hernandez and Dr. Santiago in the past ?? Acute on chronic constipation No BM in 5 days KUB as above Intensify bowel regimen Continue to monitor carefully Resolved with resuming Linzess Hypokalemia-resolved K 3.3 Replace and monitor Hypomagnesemia-resolved Mg < 0.3 Replace and monitor CKD 2 Appears stable. Monitor closely.?? Hypertension Continue home BP medication Monitor BP and titrate to maitain target goal With a small bump in her creatinine lisinopril was also DC'd, will resume as warranted Patient tells me that she was not taking hydrochlorothiazide at home, this was dc'd and will not berestarted Hyperlipidemia Continue statin Obesity BMI 32.77 Encourage Lifestyle Changes ?? CODE: FULL CODE POA: Pt does not have a medical POA. Her medical point of contact is her spouse Dispo: Pending bone biposy and final ID recs ?? VTE: Heparin subcutaneous ? ELLEN JUSTICE Cosigned by Major Edmond MD at 12/23/2021 3:50 PM CDT * Merrill Arias RN - 12/23/2021 4:08 AM CDT Problem: Pain Goal: Patient's pain/discomfort [...] to cope with his/her illness. Outcome: Progressing Problem: Injury - Risk of, Abnormal Serum Glucose Level Goal: Glucose level within specified parameters Outcome: Progressing Problem: Pain - Acute Goal: Achieve acceptable pain level Outcome: Progressing Problem: Constipation Goal: Bowel elimination within specified parameters Outcome: Progressing Problem: Reduced risk for falls/injury Goal: Reduced Risk for Falls/Injury Outcome: Progressing * Carroll Dockery RN - 12/22/2021 6:09 PM CDT Consult for PICC line placement. Consent for procedure signed and verified. All questions answered.Pt. was draped in sterile fashion. The right basilic vein was visulaized using ultrasound. 3 mL lidocaine given at insertion site. A 21 gauge needle was used to cannulate and visualized in right basilic vein. Wire was advanced without resistance or difficulty. The introducer was advanced without complications. PICC line was advanced without difficulty. Tip was confirmed by 3CG. Report to Nallely CARRERA. See flowheet for details of measurements. Sterile technique maintained throughout procedure. PICC lumen(s) had good blood return and flushed easily. Darian SOUSA, RN, EMTP * Shana Martinez HUMAN RESOURCES ADMIN - 12/22/2021 3:51 PM CDT 12/22 Awaiting final ID recommendations for further discharge plan cw * ELLEN Justice - 12/22/2021 2:18 PM CDT Hospitalist Daily Progress Note Subjective Patient seen and examined at the bedside this morning she is postop her bone biopsy done this morning by podiatry. She denies any pain, shortness of breath, cough, does state that she is having some night sweats which is different than her low blood sugar sweats that she has had in the past. I discussed with her could be most likely due to the infection. She denies any nausea or vomiting is able to tolerate p.o. without issue. We discussed discharge planning in hopes that if she does go home onlong-term IV ABX that she will be able to do them at home versus having to go to rehab. Objective Filed Vitals: 12/22/21 0930 12/22/21 0945 12/22/21 1000 12/22/21 1030 BP: (!) 153/75 107/65 127/74 113/72 Pulse: 81 87 86 85 Resp: 12 18 16 18 Temp: TempSrc: SpO2: 95% 97% 98% 94% Weight: Height: Intake/Output 24H Total: Intake/Output Summary (Last 24 hours) at 12/22/2021 1418 Last data filed at 12/22/2021 1000 Gross per 24 hour Intake 504 ml Output 5 ml Net 499 ml Physical Exam: -GENERAL: No acute distress, Well nourished, Well developed -HEAD: Normocephalic, Atraumatic -EYES: Extraocular movements intact; PEERL -LUNGS: Effort normal, Clear to auscultation bilaterally, No wheezes, No crackles, No rhonchi -CVS: Regular rate and rhythm, S1 and S2 normal -ABDOMEN: Soft, Non tender, Non distended, +BS -EXT: No lower extremity edema -NEURO: Awake, alert, oriented, No gross neuro deficits -SKIN: Skin color, texture, turgor normal. Ulcerative wound to 2nd right toe anterior and posterior; wound to anterior right great toe. Ulceration to left 4th toe. Dusky discoloration to distal aspects of digits of left foot; calluses on plantar aspect of left foot Medications ??? amLODIPine 10 mg Oral nightly ??? atorvastatin 20 mg Oral Daily ??? cefepime 2 g Intravenous Q8H ??? docusate sodium 100 mg Oral BID ??? heparin (porcine) 5,000 Units Subcutaneous 2 times per day ??? hydrOXYzine 25 mg Oral Nightly at bedtime ??? insulin glargine 0.25 Units/kg Subcutaneous Nightly at bedtime And ??? insulin lispro 0.08 Units/kg Subcutaneous TID AC ??? insulin lispro 0-16 Units Subcutaneous TID AC And ??? insulin lispro 0-8 Units Subcutaneous Nightly at bedtime ??? linaCLOtide 145 mcg Oral QAM AC ??? pantoprazole EC 40 mg Oral Daily ??? polyethylene glycol 1 packet Oral Daily ??? Senna 8.6 mg Oral Nightly at bedtime ??? Tdap 0.5 mL Intramuscular Once ??? vancomycin 2,000 mg Intravenous Q48H ??? vancomycin pharmacy to dose Intravenous See Admin Instructions ??? lactated ringers Stopped (12/22/21 0732) acetaminophen, bisacodyl, bisacodyl EC, cyclobenzaprine, dextrose 10 % bolus, glucagon, glucose, HYDROcodone-acetaminophen, morphine, naLOXone, ondansetron Labs, Imaging, Other Studies Recent Labs Lab 12/16/21 1420 12/17/21 0610 12/18/21 0530 12/19/21 0530 12/20/21 0940 12/21/21 0742 12/22/21 0552 WBC 12.1* 7.9 7.9 8.6 8.3 7.3 8.6 RBC 4.37 3.99* 3.65* 3.74* 4.03* 4.08* 4.01* HGB 13.3 12.2 11.1* 11.3* 12.2 12.2 12.1 HCT 39.7 36.2* 32.6* 33.7* 36.4* 37.0* 36.2* MCV 90.8 90.7 89.3 90.1 90.3 90.7 90.3 MCH 30.4 30.6 30.4 30.2 30.3 29.9 30.2 MCHC 33.5 33.7 34.0 33.5 33.5 33.0 33.4 PLT 326 292 287 289 319 293 321 RDW 12.8 12.8 12.7 12.9 12.8 12.9 12.7 MPV 10.9 10.9 10.8 10.8 11.1 10.7 10.9 PERNEU 65.6 54.5 53.2 53.4 60.2 55.5 46.7 PERLYM 29.9 38.5 39.9 39.1 32.6 36.5 46.8 PERMON 3.1 5.2 5.0 5.7 5.3 5.5 4.4 LYMC 3.61 3.06 3.13 3.35 2.71 2.65 4.01 MONOC 0.37 0.41 0.39 0.49 0.44 0.40 0.38 EOSC 0.09 0.09 0.10 0.08 0.09 0.11 0.10 BASOC 0.05 0.03 0.04 0.04 0.05 0.05 0.06 DTYPE AUTOMATED DIFFERENTIAL AUTOMATED DIFFERENTIAL AUTOMATED DIFFERENTIAL AUTOMATED DIFFERENTIAL AUTOMATED DIFFERENTIAL AUTOMATED DIFFERENTIAL AUTOMATED DIFFERENTIAL Recent Labs Lab 12/16/21 1420 12/17/21 0610 12/18/21 0530 12/19/21 0530 12/20/21 0940 12/21/21 0742 12/22/21 0552 NA 137 137 139 137 137 138 136 K 3.3* 3.9 4.0 4.5 4.8 4.7 4.6 CL 104 105 107 105 105 105 105 CO2 28.5 29.7 27.0 28.8 26.8 28.6 25.9 AGAP 4.5* 2.3* 5.0 3.2* 5.2 4.4* 5.1 BUN 15 17 19* 21* 24* 26* 33* CR 1.00 0.92 0.99 1.02 1.14* 1.21* 1.29* BUNCREATININ 15.0 18.5 19.2 20.6 21.1 21.5 25.6 GLU 141* 154* 131* 91 182* 162* 170* CA 9.8 9.2 8.9 9.4 9.6 9.8 9.5 TP 9.8* 8.2 7.7 8.0 -- -- -- ALB 3.6 3.1* 2.8* 2.9* -- -- -- TBIL 0.4 0.4 0.2 0.3 -- -- -- ALKP 146* 126 118 120 -- -- -- AST 17 14* 13* 16 -- -- -- ALT 23 20 17 22 -- -- -- Recent Labs Lab 12/16/21 1834 INR 1.0 PTT 26.5 Recent Labs Lab 12/16/21 1420 12/16/21 1425 TROP -- 7 CPK 185 -- Recent Labs Lab 12/16/21 1407 PROCT <0.05 Results for orders placed or performed during the hospital encounter of 08/11/19 URINALYSIS, AUTO, COMPLETE Result Value Ref Range Specimen Type URINE CLEAN CATCH COLOR (U) LIGHT YELLOW TRANSPARENCY CLEAR Specific Taylor (U) 1.024 1.001 - 1.030 U PH 5.5 5.0 - 9.0 LEUKOCYTE ESTERASE NEGATIVE NEGATIVE NITRITES NEGATIVE NEGATIVE PROTEIN (U) 70 (H) <30 MG/DL URINE GLUCOSE 200 (A) NORMAL MG/DL U KETONES NEGATIVE NEGATIVE MG/DL UROBILINOGEN NORMAL NORMAL MG/DL BILIRUBIN (U) NEGATIVE NEGATIVE MG/DL BLOOD NEGATIVE NEGATIVE CULTURE & SENSITIVITY INDICATED? CULTURE IS NOT INDICATED MUCUS RARE /LPF WBC/HPF 1 <6 /HPF RBC/HPF 1 <6 /HPF BACTERIA (URINE) RARE (A) NONE /HPF SQUAMOUS EPITHELIALS RARE /HPF Imaging USV ART REST W ADRIANA LOW EXT Result Date: 12/16/2021 ARTERIAL DOPPLER - ADRIANA BILATERAL LOWER EXTREMITY VASCULAR LAB Pat.Name: TYSON MCNEAL Pat.ID: [id number] .Date: 12/16/2021 Refer.MD: Yasmin Segura Exam Time: 2:52:00 PM Study Type:MARINO VS Arterial Doppler Legs NOHEMY Height: 66in Age: 2 1970,51Y Sex: FEMALE Sonogrphr: Shahla Toscano RDKY, RVT Pat. Stat.:Outpatient Room: ER History / Clinical: Rt foot wounds. L>R severe leg pain. Lt foot cool to touch with weak pulse. PMH- DM. HTN. HLD. neurop. L2, L3 amp. BMI 39. Prior 06/21/21- Rt 1.12, Lt 1.24 Procedures: Doppler waveforms, Digit PPG, Systolic Pressures w/ADRIANA Race: -Cong[place] ++++++++++++++++++++++++++++++++++++ SUMMARY: ++++++++++++++++++++++++++++++++++++ Joceline ADRIANA Criteria: >1.30 = falsely elevated, calcified vessels; 1.00-1.29 = no signif ischemia at rest ; .80-.99 = mild PAD, asymptomatic; .50-.79 = moderate PAD, claudication; <.50 = severe PAD, rest pain;<.30 = critical PAD, necrosis, poor healing (Digits: DBI >.60 Normal; <.60 Abnormal) (Positive Stress eval: ADRIANA decrease of >.20 or >20% pressure drop) Right leg: Common Femoral waveform is triphasic, high amplitude; Popliteal triphasic, high amplitude; Posterior Tibial triphasic, medium amplitude with ADRIANA 0.959 ; DP/Anterior Tibial triphasic, high amplitude with ADRIANA 0.959 . Digit flow by PPG is not assessed due to wound with bandages. Left leg: Common Femoral waveform is triphasic, high amplitude; Popliteal biphasic, high amplitude; Posterior Tibial biphasic, medium amplitude with ADRIANA 0.973 ; DP/Anterior Tibial biphasic, medium amplitude with ADRIANA 1.08 . Digit flow by PPG is low amplitude with DBI 0.676 . Compared to previous exam done 06/21/2021 , there is no significant change. CONCLUSION: ++++++++++++++++++++++++++++++++++++ FINDINGS: ++++++++++++++++++++++++++++++++++++++++++++++++++++++++++++++++++++++++ MEASUREMENTS: ++++++++++++++++++++++++++++++++++++ DOPPLER Left E COMMERCE ARCHITECT E COMMERCE ARCHITECT PSV 123 cm/s Left Dist Pop A Dist Pop A PSV 94.2 cm/s Left Dist HORSE FARM MANAGER Dist HORSE FARM MANAGER PSV 46.2 cm/s Left Dist DOMINGA Dist DOMINGA PSV 56.5 cm/s Right E COMMERCE ARCHITECT E COMMERCE ARCHITECT PSV 145 cm/s Right Dist Pop A Dist Pop A PSV 107 cm/s Right Dist HORSE FARM MANAGER Dist HORSE FARM MANAGER PSV 56.5 cm/s Right Dist DOMINGA Dist DOMINGA PSV 82.8 cm/s PRESSURES Right Brachial Brach P 148 mmHg Right Ankle DP AnkleDP P 142 mmHg Right Ankle PT AnklePT P 142 mmHg Right ADRIANA PT ADRIANA PT 0.959 Right ADRIANA DP ADRIANA DP 0.959 Left Brachial Brach P 140 mmHg Left Ankle DP AnkleDP P160 mmHg Left Ankle PT AnklePT P 144 mmHg Left Great Toe GreatToe P 100 mmHg Left ADRIANA PT ADRIANA PT 0.973 Left ADRIANA DP ADRIANA DP 1.08 Left TBI TBI 0.676 Unsigned Hubert Hernandez M.D. XR ABD KUB Result Date: 12/16/2021 HISTORY: no BM in 5 days; n/v TECHNIQUE: Supine image(s) of the abdomen and pelvis were obtained on 12/16/2001 at 1949 hours. COMPARISON: None. FINDINGS: LINES OR TUBES: None LUNG BASES: Unremarkable. BOWEL GAS PATTERN: There are no abnormally dilated loops of bowel. Multiple scattered tablets arethroughout the abdomen FREE AIR: No free air is detected on this supine exam. CALCIFICATIONS/OTHER:None MUSCULOSKELETAL: The osseous structures are unremarkable. IMPRESSION: 1. No radiographic evidence of bowel obstruction. 2. Mild fecal burden is seen within the colon. Ordered By: WANDA MERCER Interpreted By: Mercy Irving MD, 12/16/2021 8:04 PM XR FOOT LT 3V Result Date: 11/29/2021 EXAMINATION: Left foot EXAM DATE: 11/28/2021 11:48 AM REASON FOR EXAM: pain Foot pain and swelling COMPARISON: 01/17/2021 TECHNIQUE: 3 views FINDINGS: Moderate soft tissue swelling. Hypertrophic bone and mixed sclerotic and lucent changes throughout the midfoot compatible withneuropathic disease, grossly stable. Bone spur suggests chronic plantar fasciitis. Status post second and third digit amputations. No obvious acute erosive changes to indicate acute osteomyelitis. Ifthere is clinical concern for acute osteomyelitis, MRI recommended. No evidence of fracture or dislocation. IMPRESSION: 1. Prior amputations and midfoot neuropathic disease, stable. No definite acute osteomyelitis, but if there is significant clinical concern for osteomyelitis, MRI is recommended. ReferredBy: Interpreted By: Isaías Jones MD, 11/29/2021 8:02 AM XR MULTI TOE RT Result Date: 12/16/2021 IMAGING STUDIES: XR MULTI TOE RT DATE: 12/16/2021 2:26 PM HISTORY: diabetic ulcers to right first and second toes 51-year-old female with diabetic ulcers of the right foot first and second toes. Reported ulcerations along the dorsal aspect of the right first toe and volar aspect of the right secondtoe and debrided. Additional history of increasing leg pain, left greater than right, with cool feet and weak pulses. COMPARISON: Right foot 01/17/2021. DISCUSSION: AP, oblique, and lateral views of the right foot. The posterior foot is excluded on lateral view. Subtle lucency along the distal medial aspect of the great toe near the level of the nailbed and of the medial tip of the second digit. On lateral view, small defect along the plantar aspect of the great toe distal phalanx but stable from 2020 study. No appreciable new fracture or erosion. No appreciable acute periosteal reaction. Maintained great toe interphalangeal joint space and second digit interphalangeal joint spaces. Old healed fracture of the proximal fifth metatarsal. Moderate degenerative changes in the midfoot. Plantarcalcaneal spur. Atherosclerotic calcification in the distal leg and in the foot, including the digital arteries. IMPRESSION: No appreciable fracture, dislocation, periosteal reaction, or acute bony erosion. If clinical concern for osteomyelitis, MRI is a more sensitive test. Ordered By: DESIREE MACKENZIE Interpreted By: Angelito Tidwell, 12/16/2021 2:50 PM XR FOOT LT 2V Result Date: 12/16/2021 PROCEDURE: XR FOOT LT 2V HISTORY: Left foot pain. COMPARISON: X-ray right foot TECHNIQUE: AP, lateral and oblique rotated views of the left foot were obtained. FINDINGS: There is no acute fracture orosseous malalignment identified. There are postsurgical changes from prior second and third toe amputations. Degenerative changes of the left midfoot is present. The joint spaces are maintained. There is a moderate plantar calcaneal enthesophyte. Mild soft swelling of the foot. IMPRESSION: 1. No acute osseous abnormality is identified. 2. Status post second and third toe amputations. 3. Mild soft tissue swelling of the left foot. Ordered By: WANDA MERCER Interpreted By: Mercy Irving MD, 12/16/2021 8:06 PM MRI right foot WO 12/17/21 1. Mild osteomyelitis of the distal first phalanx. 2. Mild osteomyelitis of the middle and distal second digit phalanges. 3. No drainable fluid collection or abscess. 4. 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 ??No evidence of acute osteomyelitis identified. 2. ??Advanced midfoot degenerative change. Assessment & Plan Diabetic Foot Infection- Right foot with OM Xray toes of left foot as above Blood Cultures (12/16) - NGTD Lactate WNL=1.3 IV Ceftriaxone, IV Vancomycin Pharmacy to dose Vancomycin Neuro vascular checks Pain management monitor for toxicity Wound care Consult MRI Right Foot with mild OM to distal 1st phalanx and middle/distal 2nd phalanges ID consultation appreciated. Agree with abx, but recommend broadening Rocephin to cefepime. Recommended bone sample and then determine abx disposition. Prone to yeast infections w/ abx. Consider prophylactic diflucan. Will consult vascular. Appreciate recommendations IR consulted for bone biopsy, but unable to do based on too small of a target. Will reach back out to vascular to see if amenable to performing biopsy. Vascular consulted podiatry for bone biopsy Podiatry did bone biopsy on 12/22/2021 cultures pending Awaiting ID Recs, PICC line ordered Diabetic foot wound, left 4th digit Continue treatment above. MRI left foot ordered. > Negative for osteo ?? Diabetes Hold Sitagliptin and Trulicity Continue home basal insulin accu checks achs-s/s protocol A1c=7.7 on 12/08/21 Pt had hypoglycemic episodes on 12/19, that resolved. Home insulin dc'd. ssi started Now hyperglycemic. Will resume Lantus at low dose and titrate accordingly. Nighttime snack ordered. Nutritional started for elevated blood sugar Consider amitriptyline for neuropathy management, will defer to PCP Pt tells me that she is not taking the sitagliptan at home d/t it was making her itch and PCP told her to stop it, will not restart at DC ?? Hx of multiple toe amputation-left foot Hx of Charcot foot-left Increased pain/swelling Xray left foot as above Neuro vascular checks Pain management monitor for toxicity Offered suppository today. Followed with Dr. Hernandez and Dr. Santiago in the past ?? Acute on chronic constipation No BM in 5 days KUB as above Intensify bowel regimen Continue to monitor carefully Resolved with resuming Linzess Hypokalemia-resolved K 3.3 Replace and monitor Hypomagnesemia-resolved Mg < 0.3 Replace and monitor CKD 2 Appears stable. Monitor closely.?? Hypertension Continue home BP medication Monitor BP and titrate to maitain target goal With a small bump in her creatinine lisinopril was also DC'd, will resume as warranted Patient tells me that she was not taking hydrochlorothiazide at home, this was dc'd and will not berestarted Hyperlipidemia Continue statin Obesity BMI 32.77 Encourage Lifestyle Changes ?? CODE: FULL CODE POA: Pt does not have a medical POA. Her medical point of contact is her spouse Dispo: Pending bone biposy and final ID recs ?? VTE: Heparin subcutaneous ? ELLEN JUSTICE Cosigned by Maggy Merino DO at 12/22/2021 5:23 PM CDT * Salma Martinez, PharmD - 12/22/2021 1:58 PM CDT Vancomycin Pharmacy to Dose Day #6 Ordering Provider: Dr. Urbina Indication: osteomyelitis AUC goal: 400-600 Individualized trough goal: 10.4-14.4 Height 12/16/21 5' 6 (1.676 m) Weight 12/16/21 82.6 kg (182 lb) Date: WBC: SCR: CRCL: TMAX: LEVEL: 12/16 12.1 1.0 72.9ml/min 98.1 12/17 7.9 0.92 83.6ml/min 98.1 12/18 7.9 0.99 77.7ml/min 98.2 22.9 12/19 8.6 1.02 76.2 98.2 22.4 12/20 8.3 1.14 68.7 98.4 12/21 7.3 1.21 64.7 98.2 23.4 12/22 8.6 1.29 60.7 98.9 Other ABX: - Cefepime Cultures/Tests: - Blood x 2 (12/16): NG5D -Wound (right toe): collected on 12/22 - R toes XR (12/16): No appreciable fracture, dislocation, periosteal reaction, or acute bony erosion. If clinical concern for osteomyelitis, MRI is a more sensitive test. - L foot XR (12/16): No acute osseous abnormality is identified... - R foot MRI (12/17): 1. Mild osteomyelitis of the distal first phalanx. 2. Mild osteomyelitis of the middle and distal second digit phalanges... Kinetics Assessment (12/22): Loading dose: N/A Regimen: 2000 mg IV every 48 hours. Start time: 12:53 on 12/22/2021 Exposure target: AUC24 (range)400-600 mg/L.hr AUC24,ss: 545 mg/L.hr PAUC*: 100 % Ctrough,ss: 12.4 mg/L Pconc*: 0 Toxicity: 8% A/P: 51 YOF with PMH including hypertension, hyperlipidemia, history of COVID-19 infection in 2020, Diabetes with neuropathy and charcot foot; hx of multiple toe amputations of left foot ordered vancomycin [id number]-rw-pkeu for diabetic foot infection. Patient received a 1500 mg vancomycin loading dose in the ER followed by 1500 mg every 24 hours. Right foot MRI showed mild osteomyelitis to distal 1st phalanx and middle/distal 2nd phalanges. ID and Vascular following. SCr increased to 1.29mg/dL. Initiate Vancomycin IV 2000mg q48h today. This is appropriate per [facility] data. IR unable to perform bone biopsy per notes and so Podiatry now consulted. Left foot MRI negative for osteomyelitis though right foot MRI did confirm so anticipating long therapy course. Will continue to follow, thank you. Annika Pringle, PharmD Candidate Salma Martinez PharmD, BCPS * Nallely Mcgrath RN - 12/22/2021 10:21 AM CDTSummary: care plan Problem: Pain Goal: Patient's pain/discomfort is manageable [...] and interventions as needed. Outcome: Progressing * Hubert Cheek DPM - 12/22/2021 6:57 AM CDT Podiatry Progress Note S--Patient seen at bedside resting comfortably. She still reports pain to her right toes. She has agreed to proceed with bone biopsy today. Patient denies recent N/F/V/C/CP/SOB/calf pain. O-- Filed Vitals: 12/21/21 1955 12/22/21 0015 12/22/21 0459 12/22/21 0610 BP: 116/59 112/67 114/72 (!) 144/90 Pulse: 94 82 86 87 Resp: 02 06 20 16 Temp: 98.1 ??F (36.7 ??C) 97.9 ??F (36.6 ??C) 97.9 ??F (36.6 ??C) 97.4 ??F (36.3 ??C) TempSrc: Oral Oral Oral Temporal SpO2: 98% 99% 100% 100% Weight: Height: Exam General appearance: alert, cooperative, no distress ?? Vasc: Dorsalis pedis pulse 0/4 , bilateral, posterior tibial pulse 0/4 , bilateral. Capillary refill time less than 3 seconds to the distal aspect of feet, bilaterally. Feet are dry and xerotic. Pedal hair growth is absent. Feet are cool. ?? Neuro: Protective sensation diminished via 10g monofilament to digits, bilaterally. ?? Derm: Ulceration to dorsal 1st digit right foot and distal 2nd digit right foot ?? Musc: Diffuse pain to right lower extremity. ?? Study Result ?? Narrative & Impression EXAMINATION: MRI FOOT LT WO CON ?? HISTORY: Pain, swelling, fourth digit ?? DATE: 12/20/2021 8:40 PM ?? COMPARISON: X-ray 12/16/2021, MRI 02/07/2017 ?? TECHNIQUE: Multisequence multiplanar unenhanced imaging of the left forefoot. ?? 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 ??No acute fracture identified. ??No evidence of acute osteomyelitis. ??There are advanced degenerative changes of the midfoot, possibly neuropathic change. ??No tenosynovitis or fluid collection. ? IMPRESSION: 1. ??No evidence of acute osteomyelitis identified. 2. ??Advanced midfoot degenerative change. ?? Referred By: ? Interpreted By: Arley Gastelum MD, 12/20/2021 9:10 PM Most Recent CBC Component Results Lab Results Component Value Date WBC 8.6 12/22/2021 RBC 4.01 (L) 12/22/2021 MCV 90.3 12/22/2021 MCH 30.2 12/22/2021 RDW 12.7 12/22/2021 Recent Labs 12/20/21 0940 12/21/21 0742 12/22/21 0552 WBC 8.3 7.3 8.6 Recent Labs 12/22/21 0552 CO2 25.9 BUN 33* Assessment Osteomyelitis 1st and 2nd digits right foot DM with foot ulcer Plan Plan is for bone biopsy 1st and 2nd digits right foot. The procedure, risks, benefits, and possiblecomplications have been discussed with the patient and all questions have been answered at this time. The patient wishes to continue with surgical treatment today. HUBERT CHEEK DPM * Hubert Hernandez MD - 12/21/2021 9:11 PM CDT Tyson Mcneal is a 51-year-old female Subjective: No complaints. Diabetic foot infection (CMS/HCC) Current Facility-Administered Medications Medication Dose Route Frequency Provider Last Rate Last Admin ??? acetaminophen (TYLENOL) tablet 650 mg 650 mg Oral Q4H PRN Eduardo Aguillon APRN ??? amLODIPine (NORVASC) tablet 10 mg 10 mg Oral nightly ELLEN Justice 10 mg at 12/21/212032 ??? atorvastatin (LIPITOR) tablet 20 mg 20 mg Oral Daily Wanda Mercer FILTER WORKER 20 mg at 12/21/21 0913 ??? bisacodyl (DULCOLAX) suppository 10 mg 10 mg Rectal Daily PRN Wanda Mercer FILTER WORKER ??? bisacodyl EC (DULCOLAX) tablet 5 mg 5 mg Oral Daily PRN Wanda Mercer FILTER WORKER ??? cefTRIAXone (ROCEPHIN) 1 g in sodium chloride 0.9 % 50 mL IVPB 1 g Intravenous Q24H Wanda Mercer FILTER WORKER Stopped at 12/21/21 1514 ??? chlorhexidine (PERIDEX) 0.12 % solution 15 mL 15 mL Mouth/Throat PRN Hubert Cheek DPRonnie ??? cyclobenzaprine (FLEXERIL) tablet 10 mg 10 mg Oral TID PRN Wanda Mercer FILTER WORKER ??? dextrose 10 % bolus infusion 125-250 mL 125-250 mL Intravenous PRN Wanda Mercer FILTER WORKER ??? docusate sodium (COLACE) capsule 100 mg 100 mg Oral BID David Schofield PA-C 100 mg at 12/20/21 0919 ??? glucagon injection 1 mg 1 mg Intramuscular Once PRN Wanda Mercer FILTER WORKER ??? glucose oral gel 32-64 mL 15-30 g of dextrose Oral PRN Wanda Mercer FILTER WORKER ??? heparin (porcine) injection 5,000 Units 5,000 Units Subcutaneous 2 times per day Wanda Mercer APRN 5,000 Units at 12/21/212032 ??? HYDROcodone-acetaminophen (NORCO) 5-325 MG tablet 1 tablet 1 tablet Oral Q6H PRN Eduardo Aguillon APRN 1 tablet at 12/21/21 1904 ??? hydrOXYzine (VISTARIL) capsule 25 mg 25 mg Oral Nightly at bedtime Wanda Mercer FILTER WORKER 25 mg at 12/21/212032 ??? insulin glargine (LANTUS) injection 24 Units 0.25 Units/kg Subcutaneous Nightly at bedtime ELLEN Wynne 24 Units at 12/21/212032 And ??? insulin lispro (HUMALOG) injection 8 Units 0.08 Units/kg Subcutaneous TID AC EDWARDO JusticeNP 8 Units at 12/21/21 173 ??? insulin lispro (HUMALOG) injection 0-16 Units 0-16 Units Subcutaneous TID AC Linolee Stephen Aguillon, APRN10 Units at 12/21/211731 And ??? insulin lispro (HUMALOG) injection 0-8 Units 0-8 Units Subcutaneous Nightly at bedtime Linolee Stephen Aguillon, FILTER WORKER 7 Units at 12/21/212031 ??? lactated ringers infusion Intravenous Continuous Viet Araujo MD ??? linaCLOtide (LINZESS) capsule 145 mcg 145 mcg Oral QAM AC Roxana ELLEN Jacques 145 mcg at 12/21/21 0626 ??? morphine injection 1 mg 1 mg Intravenous Q3H PRN Wanda Mercer APRN 1 mg at 12/19/212157 ??? naLOXone (NARCAN) injection 0.4 mg 0.4 mg Intravenous PRN Wanda Mercer APRN ??? ondansetron (ZOFRAN) injection 4 mg 4 mg Intravenous Q8H PRN Sukhwinder Walker MD 4 mg at 12/20/212024 ??? pantoprazole EC (PROTONIX) tablet 40 mg 40 mg Oral Daily Wanda Mercer APRN 40 mg at 12/21/21 0913 ??? polyethylene glycol (GLYCOLAX) packet 1 packet 1 packet Oral Daily David Schofield PA-C 1 packetat 12/19/21 0853 ??? Senna (SENOKOT) 8.6 MG tablet 8.6 mg 8.6 mg Oral Nightly at bedtime David Schofield PA-C 8.6 mg at 12/18/212032 ??? Tdap (BOOSTRIX) injection 0.5 mL 0.5 mL Intramuscular Once Ousmane Pozo MD ??? [START ON 12/22/2021] vancomycin 2000 mg in IV solution 400 mL IVPB (XELLIA) 2,000 mg Intravenous Q48H ELLEN Justice ??? vancomycin pharmacy to dose placeholder Intravenous See Admin Instructions Wanda Mercer APRN Allergies Allergen Reactions ??? Fish Oil Unknown ??? Amoxicillin Rash ??? Penicillins Rash Review of Systems Constitutional: Negative. Respiratory: Negative. All other systems reviewed and are negative. Objective: I/O last 3 completed shifts: In: 400 [P.O.:400] Out: - Blood pressure 116/59, pulse 94, temperature 98.1 ??F (36.7 ??C), temperature source Oral, resp. rate 12, height 5' 6 (1.676 m), weight 95.3 kg (210 lb 1.6 oz), last menstrual period 10/29/2004, SpO2 98 %. Physical Exam Cardiovascular: Rate and Rhythm: Normal rate. Pulmonary: Effort: Pulmonary effort is normal. Neurological: Mental Status: She is alert. Mental status is at baseline. Lab Results Component Value Date NA 138 12/21/2021 K 4.7 12/21/2021 CL 105 12/21/2021 CO2 28.6 12/21/2021 AGAP 4.4 (L) 12/21/2021 BUN 26 (H) 12/21/2021 CR 1.21 (H) 12/21/2021 BUNCREATININ 21.5 12/21/2021 GFRNON 53 (L) 05/10/2021 GFR 62 (L) 05/10/2021 GLU 162 (H) 12/21/2021 CA 9.8 12/21/2021 Lab Results Component Value Date WBC 7.3 12/21/2021 HGB 12.2 12/21/2021 PLT 293 12/21/2021 Lab Results Component Value Date CHOL 150 07/10/2021 TRI 333 (H) 07/10/2021 HDL 31 (L) 07/10/2021 TP 8.0 12/19/2021 ALB 2.9 (L) 12/19/2021 ALT 22 12/19/2021 HGBA1C 7.3 09/07/2021 TSH 1.990 07/09/2021 Principal Problem: Diabetic foot infection (CMS/HCC) SNOMED CT(R): INFECTION OF FOOT DUE TO DIABETES MELLITUS Plan: Bone biopsy pending. HUBERT HERNANDEZ MD 12/21/2021 LATE INSPECTOR * Salma Martinez PharmD - 12/21/2021 4:12 PM CDT Vancomycin Pharmacy to Dose Day #6 Ordering Provider: Dr. Urbina Indication: osteomyelitis AUC goal: 400-600 Individualized trough goal: 9.2-13.2 Height 12/16/21 5' 6 (1.676 m) Weight 12/16/21 82.6 kg (182 lb) Date: WBC: SCR: CRCL: TMAX: LEVEL: 12/16 12.1 1.0 72.9ml/min 98.1 12/17 7.9 0.92 83.6ml/min 98.1 12/18 7.9 0.99 77.7ml/min 98.2 22.9 12/19 8.6 1.02 76.2 98.2 22.4 12/20 8.3 1.14 68.7 98.4 12/21 7.3 1.21 64.7 98.2 23.4 Other ABX: - Rocephin (12/16 - present) Cultures/Tests: - Blood x 2 (12/16): NG4D - R toes XR (12/16): No appreciable fracture, dislocation, periosteal reaction, or acute bony erosion. If clinical concern for osteomyelitis, MRI is a more sensitive test. - L foot XR (12/16): No acute osseous abnormality is identified... - R foot MRI (12/17): 1. Mild osteomyelitis of the distal first phalanx. 2. Mild osteomyelitis of the middle and distal second digit phalanges... Kinetics Assessment (12/21): Loading dose: N/A Regimen: 2000 mg IV every 48 hours. Start time: 15:21 on 12/21/2021 Exposure target: AUC24 (range)400-600 mg/L.hr AUC24,ss: 524 mg/L.hr PAUC*: 100 % Ctrough,ss: 11.5 mg/L Pconc*: 0 % Tox.: 7 % A/P: 51 YOF with PMH including hypertension, hyperlipidemia, history of COVID-19 infection in 2019, Diabetes with neuropathy and charcot foot; hx of multiple toe amputations of left foot ordered vancomycin [id number] for diabetic foot infection. Patient received a 1500 mg vancomycin loading dose in the ER followed by 1500 mg every 24 hours. Right foot MRI showed mild osteomyelitis to distal 1st phalanx and middle/distal 2nd phalanges. ID and Vascular following. SCr increased to 1.21mg/dL. Initiate Vancomycin IV 2000mg q48h beginning on 12/22, which is appropriate per [facility] data. IR unable to perform bone biopsy per notes and so Podiatry now consulted. Left foot MRI negative for osteomyelitis though right foot MRI did confirm so anticipating long therapy course. Will continue to follow, thank you. Annika Pirngle, PharmD Candidate Salma Martinez PharmD, BCPS * Shana Martinez, HUMAN RESOURCES ADMIN - 12/21/2021 3:58 PM CDT 12/21 Discussed in rounds, podiatry consulted for possible bone biopsy cw * ELLEN Justice - 12/21/2021 10:11 AM CDT Hospitalist Daily Progress Note Subjective Patient seen and examined at the bedside this morning, she states that she did sleep okay. She doesnote that she has pain in her left foot that throbs that is relieved with Nikko wraps. She also states that her right foot she has pain while walking. She describes the pain as numbness and tingling. She tells me that she knows she has neuropathy but she cannot tolerate gabapentin it makes her nauseou s and very depressed. We did discuss possibly trying amitriptyline when she discharges from the hospital. I discussed that this might be something that could help with her neuropathy but it should bestarted by her PCP so they can monitor her. Vascular has consulted podiatry since he was unable to do the bone biopsy. They have been notified. Objective Filed Vitals: 12/20/21 1636 12/21/21 0025 12/21/21 0447 12/21/21 0917 BP: 137/84 102/68 109/71 101/76 Pulse: 92 78 84 88 Resp: 20 15 12 18 Temp: 97.9 ??F (36.6 ??C) 98.2 ??F (36.8 ??C) 98.1 ??F (36.7 ??C) 97.9 ??F (36.6 ??C) TempSrc: Oral Oral Oral Oral SpO2: 100% 100% 100% 100% Weight: Height: Intake/Output 24H Total: Intake/Output Summary (Last 24 hours) at 12/21/2021 1011 Last data filed at 12/20/2021 1507 Gross per 24 hour Intake 400 ml Output -- Net 400 ml Physical Exam: -GENERAL: No acute distress, Well nourished, Well developed -HEAD: Normocephalic, Atraumatic -EYES: Extraocular movements intact; PEERL -LUNGS: Effort normal, Clear to auscultation bilaterally, No wheezes, No crackles, No rhonchi -CVS: Regular rate and rhythm, S1 and S2 normal -ABDOMEN: Soft, Non tender, Non distended, +BS -EXT: No lower extremity edema -NEURO: Awake, alert, oriented, No gross neuro deficits -SKIN: Skin color, texture, turgor normal. Ulcerative wound to 2nd right toe anterior and posterior; wound to anterior right great toe. Ulceration to left 4th toe. Dusky discoloration to distal aspects of digits of left foot; calluses on plantar aspect of left foot Medications ??? amLODIPine 10 mg Oral nightly ??? atorvastatin 20 mg Oral Daily ??? cefTRIAXone 1 g Intravenous Q24H ??? docusate sodium 100 mg Oral BID ??? heparin (porcine) 5,000 Units Subcutaneous 2 times per day ??? hydrOXYzine 25 mg Oral Nightly at bedtime ??? insulin glargine 0.25 Units/kg Subcutaneous Nightly at bedtime And ??? insulin lispro 0.08 Units/kg Subcutaneous TID AC ??? insulin lispro 0-16 Units Subcutaneous TID AC And ??? insulin lispro 0-8 Units Subcutaneous Nightly at bedtime ??? linaCLOtide 145 mcg Oral QAM AC ??? pantoprazole EC 40 mg Oral Daily ??? polyethylene glycol 1 packet Oral Daily ??? Senna 8.6 mg Oral Nightly at bedtime ??? Tdap 0.5 mL Intramuscular Once ??? vancomycin 1,250 mg Intravenous Q24H ??? vancomycin pharmacy to dose Intravenous See Admin Instructions acetaminophen, bisacodyl, bisacodyl EC, cyclobenzaprine, dextrose 10 % bolus, glucagon, glucose, HYDROcodone-acetaminophen, morphine, naLOXone, ondansetron Labs, Imaging, Other Studies Recent Labs Lab 12/16/[id number]/[id number]/[id number]/2152912/20/2140 12/21/21 0742 WBC 12.1* 7.9 7.9 8.6 8.3 7.3 RBC 4.37 3.99* 3.65* 3.74* 4.03* 4.08* HGB 13.3 12.2 11.1* 11.3* 12.2 12.2 HCT 39.7 36.2* 32.6* 33.7* 36.4* 37.0* MCV 90.8 90.7 89.3 90.1 90.3 90.7 MCH 30.4 30.6 30.4 30.2 30.3 29.9 MCHC 33.5 33.7 34.0 33.5 33.5 33.0 PLT 326 292 287 289 319 293 RDW 12.8 12.8 12.7 12.9 12.8 12.9 MPV 10.9 10.9 10.8 10.8 11.1 10.7 PERNEU 65.6 54.5 53.2 53.4 60.2 55.5 PERLYM 29.9 38.5 39.9 39.1 32.6 36.5 PERMON 3.1 5.2 5.0 5.7 5.3 5.5 LYMC 3.61 3.06 3.13 3.35 2.71 2.65 MONOC 0.37 0.41 0.39 0.49 0.44 0.40 EOSC 0.09 0.09 0.10 0.08 0.09 0.11 BASOC 0.05 0.03 0.04 0.04 0.05 0.05 DTYPE AUTOMATED DIFFERENTIAL AUTOMATED DIFFERENTIAL AUTOMATED DIFFERENTIAL AUTOMATED DIFFERENTIAL AUTOMATED DIFFERENTIAL AUTOMATED DIFFERENTIAL Recent Labs Lab 12/16/[id number]/[id number]/18/[id number]/19/2152912/20/21 0940 12/21/21 0742 NA 137 137 139 137 137 138 K 3.3* 3.9 4.0 4.5 4.8 4.7 CL 104 105 107 105 105 105 CO2 28.5 29.7 27.0 28.8 26.8 28.6 AGAP 4.5* 2.3* 5.0 3.2* 5.2 4.4* BUN 15 17 19* 21* 24* 26* CR 1.00 0.92 0.99 1.02 1.14* 1.21* BUNCREATININ 15.0 18.5 19.2 20.6 21.1 21.5 GLU 141* 154* 131* 91 182* 162* CA 9.8 9.2 8.9 9.4 9.6 9.8 TP 9.8* 8.2 7.7 8.0 -- -- ALB 3.6 3.1* 2.8* 2.9* -- -- TBIL 0.4 0.4 0.2 0.3 -- -- ALKP 146* 126 118 120 -- -- AST 17 14* 13* 16 -- -- ALT 23 20 17 22 -- -- Recent Labs Lab 12/16/21 1834 INR 1.0 PTT 26.5 Recent Labs Lab 12/16/21 1420 12/16/21 1425 TROP -- 7 CPK 185 -- Recent Labs Lab 12/16/21 1407 PROCT <0.05 Results for orders placed or performed during the hospital encounter of 08/11/19 URINALYSIS, AUTO, COMPLETE Result Value Ref Range Specimen Type URINE CLEAN CATCH COLOR (U) LIGHT YELLOW TRANSPARENCY CLEAR Specific Taylor (U) 1.024 1.001 - 1.030 U PH 5.5 5.0 - 9.0 LEUKOCYTE ESTERASE NEGATIVE NEGATIVE NITRITES NEGATIVE NEGATIVE PROTEIN (U) 70 (H) <30 MG/DL URINE GLUCOSE 200 (A) NORMAL MG/DL U KETONES NEGATIVE NEGATIVE MG/DL UROBILINOGEN NORMAL NORMAL MG/DL BILIRUBIN (U) NEGATIVE NEGATIVE MG/DL BLOOD NEGATIVE NEGATIVE CULTURE & SENSITIVITY INDICATED? CULTURE IS NOT INDICATED MUCUS RARE /LPF WBC/HPF 1 <6 /HPF RBC/HPF 1 <6 /HPF BACTERIA (URINE) RARE (A) NONE /HPF SQUAMOUS EPITHELIALS RARE /HPF Imaging USV ART REST W ADRIANA LOW EXT Result Date: 12/16/2021 ARTERIAL DOPPLER - ADRIANA BILATERAL LOWER EXTREMITY VASCULAR LAB Pat.Name: TYSON MCNEAL Pat.ID: [id number] .Date: 12/16/2021 Refer.MD: Yasmin Segura Exam Time: 2:52:00 PM Study Type:MARINO VS Arterial Doppler Legs NOHEMY Height: 66in Age: 2 1970,51Y Sex: FEMALE Sonogrphr: Shahla Toscano RDMS, RVT Pat. Stat.:Outpatient Room: ER History / Clinical: Rt foot wounds. L>R severe leg pain. Lt foot cool to touch with weak pulse. PMH- DM. HTN. HLD. neurop. L2, L3 amp. BMI 39. Prior 06/21/21- Rt 1.12, Lt 1.24 Procedures: Doppler waveforms, Digit PPG, Systolic Pressures w/ADRIANA Race: -Congolese ++++++++++++++++++++++++++++++++++++ SUMMARY: ++++++++++++++++++++++++++++++++++++ Joceline ADRIANA Criteria: >1.30 = falsely elevated, calcified vessels; 1.00-1.29 = no signif ischemia at rest ; .80-.99 = mild PAD, asymptomatic; .50-.79 = moderate PAD, claudication; <.50 = severe PAD, rest pain;<.30 = critical PAD, necrosis, poor healing (Digits: DBI >.60 Normal; <.60 Abnormal) (Positive Stress eval: ADRIANA decrease of >.20 or >20% pressure drop) Right leg: Common Femoral waveform is triphasic, high amplitude; Popliteal triphasic, high amplitude; Posterior Tibial triphasic, medium amplitude with ADRIANA 0.959 ; DP/Anterior Tibial triphasic, high amplitude with ADRIANA 0.959 . Digitflow by PPG is not assessed due to wound with bandages. Left leg: Common Femoral waveform is triphasic, high amplitude; Popliteal biphasic, high amplitude; Posterior Tibial biphasic, medium amplitudewith ADRIANA 0.973 ; DP/Anterior Tibial biphasic, medium amplitude with ADRIANA 1.08 . Digit flow by PPG islow amplitude with DBI 0.676 . Compared to previous exam done 06/21/2021 , there is no significant change. CONCLUSION: ++++++++++++++++++++++++++++++++++++ FINDINGS: ++++++++++++++++++++++++++++++++++++ ++++++++++++++++++++++++++++++++++++ MEASUREMENTS: ++++++++++++++++++++++++++++++++++++ DOPPLER Left E COMMERCE ARCHITECT E COMMERCE ARCHITECT PSV 123 cm/s Left Dist Pop A Dist Pop A PSV 94.2 cm/s Left Dist HORSE FARM MANAGER Dist HORSE FARM MANAGER PSV 46.2 cm/s Left Dist DOMINGA Dist DOMINGA PSV 56.5 cm/s Right E COMMERCE ARCHITECT E COMMERCE ARCHITECT PSV 145 cm/s Right Dist Pop A Dist Pop A PSV 107 cm/s Right Dist HORSE FARM MANAGER Dist HORSE FARM MANAGER PSV 56.5 cm/s Right Dist DOMINGA Dist DOMINGA PSV 82.8 cm/s PRESSURES RightBrachial Brach P 148 mmHg Right Ankle DP AnkleDP P 142 mmHg Right Ankle PT AnklePT P 142 mmHg RightABI PT ADRIANA PT 0.959 Right ADRIANA DP ADRIANA DP 0.959 Left Brachial Brach P 140 mmHg Left Ankle DP AnkleDP P 160 mmHg Left Ankle PT AnklePT P 144 mmHg Left Great Toe GreatToe P 100 mmHg Left ADRIANA PT ADRIANA PT 0.973 Left ADRIANA DP ADRIANA DP 1.08 Left TBI TBI 0.676 Unsigned Hubert Hernandez M.D. XR ABD KUB Result Date: 12/16/2021 HISTORY: no BM in 5 days; n/v TECHNIQUE: Supine image(s) of the abdomen and pelvis were obtained on12/16/2001 at 1949 hours. COMPARISON: None. FINDINGS: LINES OR TUBES: None LUNG BASES: Unremarkable. BOWEL GAS PATTERN: There are no abnormally dilated loops of bowel. Multiple scattered tablets are throughout the abdomen FREE AIR: No free air is detected on this supine exam. CALCIFICATIONS/OTHER: None MUSCULOSKELETAL: The osseous structures are unremarkable. IMPRESSION: 1. No radiographic evidence of bowel obstruction. 2. Mild fecal burden is seen within the colon. Ordered By: WANDA MERCER Interpreted By: Mercy Irving MD, 12/16/2021 8:04 PM XR FOOT LT 3V Result Date: 11/29/2021 EXAMINATION: Left foot EXAM DATE: 11/28/2021 11:48 AM REASON FOR EXAM: pain Foot pain and swelling COMPARISON: 01/17/2021 TECHNIQUE: 3 views FINDINGS: Moderate soft tissue swelling. Hypertrophic bone and mixed sclerotic and lucent changes throughout the midfoot compatible withneuropathic disease, grossly stable. Bone spur suggests chronic plantar fasciitis. Status post second and third digit amputations. No obvious acute erosive changes to indicate acute osteomyelitis. Ifthere is clinical concern for acute osteomyelitis, MRI recommended. No evidence of fracture or dislocation. IMPRESSION: 1. Prior amputations and midfoot neuropathic disease, stable. No definite acute osteomyelitis, but if there is significant clinical concern for osteomyelitis, MRI is recommended. ReferredBy: Interpreted By: Isaías Jones MD, 11/29/2021 8:02 AM XR MULTI TOE RT Result Date: 12/16/2021 IMAGING STUDIES: XR MULTI TOE RT DATE: 12/16/2021 2:26 PM HISTORY: diabetic ulcers to right first and second toes 51-year-old female with diabetic ulcers of the right foot first and second toes. Reported ulcerations along the dorsal aspect of the right first toe and volar aspect of the right secondtoe and debrided. Additional history of increasing leg pain, left greater than right, with cool feet and weak pulses. COMPARISON: Right foot 01/17/2021. DISCUSSION: AP, oblique, and lateral views of the right foot. The posterior foot is excluded on lateral view. Subtle lucency along the distal medial aspect of the great toe near the level of the nailbed and of the medial tip of the second digit. On lateral view, small defect along the plantar aspect of the great toe distal phalanx but stable from 2020 study. No appreciable new fracture or erosion. No appreciable acute periosteal reaction. Maintained great toe interphalangeal joint space and second digit interphalangeal joint spaces. Old healed fracture of the proximal fifth metatarsal. Moderate degenerative changes in the midfoot. Plantarcalcaneal spur. Atherosclerotic calcification in the distal leg and in the foot, including the digital arteries. IMPRESSION: No appreciable fracture, dislocation, periosteal reaction, or acute bony erosion. If clinical concern for osteomyelitis, MRI is a more sensitive test. Ordered By: DESIREE MACKENZIE Interpreted By: Angelito Tidwell, 12/16/2021 2:50 PM XR FOOT LT 2V Result Date: 12/16/2021 PROCEDURE: XR FOOT LT 2V HISTORY: Left foot pain. COMPARISON: X-ray right foot TECHNIQUE: AP, lateral and oblique rotated views of the left foot were obtained. FINDINGS: There is no acute fracture orosseous malalignment identified. There are postsurgical changes from prior second and third toe amputations. Degenerative changes of the left midfoot is present. The joint spaces are maintained. There is a moderate plantar calcaneal enthesophyte. Mild soft swelling of the foot. IMPRESSION: 1. No acute osseous abnormality is identified. 2. Status post second and third toe amputations. 3. Mild soft tissue swelling of the left foot. Ordered By: WANDA MERECR Interpreted By: Mercy Irving MD, 12/16/2021 8:06 PM MRI right foot WO 12/17/21 1. Mild osteomyelitis of the distal first phalanx. 2. Mild osteomyelitis of the middle and distal second digit phalanges. 3. No drainable fluid collection or abscess. 4. 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 ??No evidence of acute osteomyelitis identified. 2. ??Advanced midfoot degenerative change. Assessment & Plan Diabetic Foot Infection- Right foot with OM Xray toes of left foot as above Blood Cultures (12/16) - NGTD Lactate WNL=1.3 IV Ceftriaxone, IV Vancomycin Pharmacy to dose Vancomycin Neuro vascular checks Pain management monitor for toxicity Wound care Consult MRI Right Foot with mild OM to distal 1st phalanx and middle/distal 2nd phalanges ID consultation appreciated. Agree with abx, but recommend broadening Rocephin to cefepime. Recommended bone sample and then determine abx disposition. Prone to yeast infections w/ abx. Consider prophylactic diflucan. Will consult vascular. Appreciate recommendations IR consulted for bone biopsy, but unable to do based on too small of a target. Will reach back out to vascular to see if amenable to performing biopsy. Vascular consulted podiatry for bone biopsy Diabetic foot wound, left 4th digit Continue treatment above. MRI left foot ordered. ?? Diabetes Hold Sitagliptin and Trulicity Continue home basal insulin accu checks achs-s/s protocol A1c=7.7 on 12/08/21 Pt had hypoglycemic episodes on 12/19, that resolved. Home insulin dc'd. ssi started Now hyperglycemic. Will resume Lantus at low dose and titrate accordingly. Nighttime snack ordered. Nutritional started for elevated blood sugar Consider amitriptyline for neuropathy management, will defer to PCP Pt tells me that she is not taking the sitagliptan at home d/t it was making her itch and PCP told her to stop it, will not restart at DC ?? Hx of multiple toe amputation-left foot Hx of Charcot foot-left Increased pain/swelling Xray left foot as above Neuro vascular checks Pain management monitor for toxicity Offered suppository today. Followed with Dr. Hernandez and Dr. Santiago in the past ?? Acute on chronic constipation No BM in 5 days KUB as above Intensify bowel regimen Continue to monitor carefully Resolved with resuming Linzess Hypokalemia-resolved K 3.3 Replace and monitor Hypomagnesemia-resolved Mg < 0.3 Replace and monitor CKD 2 Appears stable. Monitor closely.?? Hypertension Continue home BP medication Monitor BP and titrate to maitain target goal With a small bump in her creatinine lisinopril was also DC'd, will resume as warranted Patient tells me that she was not taking hydrochlorothiazide at home, this was dc'd and will not berestarted Hyperlipidemia Continue statin Obesity BMI 32.77 Encourage Lifestyle Changes ?? CODE: FULL CODE POA: Pt does not have a medical POA. Her medical point of contact is her spouse Dispo: Pending bone biposy and final ID recs ?? VTE: Heparin subcutaneous ? ELLEN JUSTICE Cosigned by Maggy Merino DO at 12/21/2021 6:42 PM CDT Associated attestation - Maggy Merino DO - 12/21/2021 6:42 PM CDT I, Maggy Merino DO, participated in the care of this patient today and discussed the plan of carewith KIAN Chandler, who shared in this visit. I have reviewed the KIAN's documentation and agree with the findings except as I have documented. I personally spent 25 minutes, caring for this patient. Maggy Merino DO * Emely Ramachandran RN - 12/21/2021 3:11 AM CDT Problem: Pain Goal: Patient's pain/discomfort is manageable Description: Assess and monitor patient's pain using appropriate pain scale. Collaborate with interdisciplinary team and initiate plan and interventions as ordered. Re-assess patient's pain level 30 - 60 minutes after pain management intervention. Outcome: Met This Shift Problem: Safety Goal: Patient will be injury [...] per policy, and non-skid footwear provided. Outcome: Met This Shift Problem: Daily Care Goal: Daily care needs are met Description: Assess and monitor ability to perform self care and identify potential discharge needs. Outcome: Met This Shift Problem: Psychosocial Needs Goal: Demonstrates ability to cope with hospitalization/illness Description: Assess and monitor patients ability to cope with his/her illness. Outcome: Met This Shift Goal: Collaborate with patient/family/caregiver to identify patient specific goals for this hospitalization Outcome: Met This Shift Problem: Discharge Barriers Goal: Patient's discharge needs are met Description: Collaborate with interdisciplinary team and initiate plans and interventions as needed. Outcome: Met This Shift Problem: Discharge Planning Goal: Knowledge of discharge instructions Outcome: Progressing Problem: Injury - Risk of, Abnormal Serum Glucose Level Goal: Glucose level within specified parameters Outcome: Progressing Problem: Constipation Goal: Bowel elimination within specified parameters Outcome: Progressing * Rudi SantillanD - 12/20/2021 5:09 PM CDT Vancomycin Pharmacy to Dose Day #5 Ordering Provider: Dr. Urbina Indication: osteomyelitis AUC goal: 400-600 Individualized trough goal: 12.9-16.9 Height 12/16/21 5' 6 (1.676 m) Weight 12/16/21 82.6 kg (182 lb) Date: WBC: SCR: CRCL: TMAX: LEVEL: 12/16 12.1 1.0 72.9ml/min 98.1 12/17 7.9 0.92 83.6ml/min 98.1 12/18 7.9 0.99 77.7ml/min 98.2 22.9 12/19 8.6 1.02 76.2 98.2 22.4 12/20 8.3 1.14 68.7 98.4 Other ABX: - Rocephin (12/16 - present) Cultures/Tests: - Blood x 2 (12/16): NG4D - R toes XR (12/16): No appreciable fracture, dislocation, periosteal reaction, or acute bony erosion. If clinical concern for osteomyelitis, MRI is a more sensitive test. - L foot XR (12/16): No acute osseous abnormality is identified... - R foot MRI (12/17): 1. Mild osteomyelitis of the distal first phalanx. 2. Mild osteomyelitis of the middle and distal second digit phalanges... Kinetics Assessment (12/19): Regimen: 1250 mg IV every 24 hours. Start time: 19:00 on 12/19/2021 Exposure target: AUC24 (range)400-600 mg/L.hr AUC24,ss: 537 mg/L.hr PAUC*: 99 % Ctrough,ss: 14.9 mg/L Pconc*: 4 % Tox.: 10 % A/P: 51 YOF with PMH including hypertension, hyperlipidemia, history of COVID-19 infection in 2019, Diabetes with neuropathy and charcot foot; hx of multiple toe amputations of left foot ordered vancomycin vfhpidei-dt-dexy for diabetic foot infection. Patient received a 1500 mg vancomycin loading dose in the ER followed by 1500 mg every 24 hours. Right foot MRI showed mild osteomyelitis to distal 1st phalanx and middle/distal 2nd phalanges. ID and Vascular following. Vancomycin dose last adjusted on 12/19 per PK data/level (above). SCr increased to 1.14 mg/dL. Continue vancomycin 1250 mg q24h today. Next level on 12/21 to monitor for toxicity with increasing SCr. IR unable to preform bone biopsy per notes. Vascular planning for left foot MRI. Will continue to monitor daily. * Hubert Hernandez MD - 12/20/2021 3:59 PM CDT Images from the original note were not included. Tyson Mcneal is a 51-year-old female Subjective: No complaints. IR unable to do biopsy due to small target. Diabetic foot infection (CMS/HCC) Current Facility-Administered Medications Medication Dose Route Frequency Provider Last Rate Last Admin ??? acetaminophen (TYLENOL) tablet 650 mg 650 mg Oral Q4H PRN Eduardo R Anastasiyat, FILTER WORKER ??? amLODIPine (NORVASC) tablet 10 mg 10 mg Oral nightly Crystal M Kian, FILTER WORKER 10 mg at 12/19/21 2158 ??? atorvastatin (LIPITOR) tablet 20 mg 20 mg Oral Daily Crystal M Brown, FILTER WORKER 20 mg at 12/20/21918 ??? bisacodyl (DULCOLAX) suppository 10 mg 10 mg Rectal Daily PRN Crystal Ronnie Mercer, FILTER WORKER ??? bisacodyl EC (DULCOLAX) tablet 5 mg 5 mg Oral Daily PRN Crystal Ronnie Mercer, FILTER WORKER ??? cefTRIAXone (ROCEPHIN) 1 g in sodium chloride 0.9 % 50 mL IVPB 1 g Intravenous Q24H Crystal Ronnie Mercer, FILTER WORKER Stopped at 12/20/21 1337 ??? cyclobenzaprine (FLEXERIL) tablet 10 mg 10 mg Oral TID PRN Crystal Ronnie Mercer, FILTER WORKER ??? dextrose 10 % bolus infusion 125-250 mL 125-250 mL Intravenous PRN Crystal Ronnie Mercer, FILTER WORKER ??? docusate sodium (COLACE) capsule 100 mg 100 mg Oral BID David Schofield PA-C 100 mg at 12/20/21918 ??? glucagon injection 1 mg 1 mg Intramuscular Once PRN Crystal Ronnie Mercer, FILTER WORKER ??? glucose oral gel 32-64 mL 15-30 g of dextrose Oral PRN Crystal Ronnie Mercer, FILTER WORKER ??? heparin (porcine) injection 5,000 Units 5,000 Units Subcutaneous 2 times per day Crystal Ronnie Mercer, FILTER WORKER 5,000 Units at 12/20/21918 ??? hydroCHLOROthiazide (HYDRODIURIL) tablet 25 mg 25 mg Oral QAM Crystal Ronnie Mercer, FILTER WORKER 25 mg at 12/20/21918 ??? HYDROcodone-acetaminophen (NORCO) 5-325 MG tablet 1 tablet 1 tablet Oral Q6H PRN Eduardo R Anastasiyat, FILTER WORKER ??? hydrOXYzine (VISTARIL) capsule 25 mg 25 mg Oral Nightly at bedtime Wanda Ronnie Kian FILTER WORKER 25 mg at 12/19/212200 ??? insulin glargine (LANTUS) injection 12 Units 0.125 Units/kg Subcutaneous Nightly at bedtime Eduardo Aguillon, FILTER WORKER ??? insulin lispro (HUMALOG) injection 0-16 Units 0-16 Units Subcutaneous TID AC Eduardo Aguillon, FILTER WORKER And ??? insulin lispro (HUMALOG) injection 0-8 Units 0-8 Units Subcutaneous Nightly at bedtime Eduardo Aguillon, FILTER WORKER ??? linaCLOtide (LINZESS) capsule 145 mcg 145 mcg Oral QAM AC Roxana Chandler APSUSAN ??? lisinopril (PRINIVIL) tablet 40 mg 40 mg Oral QPM Wanda Ronnie YENI Mercer 40 mg at 12/19/212157 ??? morphine injection 1 mg 1 mg Intravenous Q3H PRN Wanda Ronnie Kian FILTER WORKER 1 mg at 12/19/212157 ??? naLOXone (NARCAN) injection 0.4 mg 0.4 mg Intravenous PRN Wanda oRnnie Kian FILTER WORKER ??? pantoprazole EC (PROTONIX) tablet 40 mg 40 mg Oral Daily Wanda Ronnie DWAYNE MercerN 40 mg at 12/20/21 0919 ??? polyethylene glycol (GLYCOLAX) packet 1 packet 1 packet Oral Daily David Schofield PA-C 1 packetat 12/19/21 0853 ??? Senna (SENOKOT) 8.6 MG tablet 8.6 mg 8.6 mg Oral Nightly at bedtime David Schofield PA-C 8.6 mg at 12/18/212032 ??? Tdap (BOOSTRIX) injection 0.5 mL 0.5 mL Intramuscular Once Ousmane Pozo MD ??? vancomycin 1250 mg in IV solution 250 mL IVPB (XELLIA) 1,250 mg Intravenous Q24H Eduardo Aguillon, FILTER WORKER Stopped at 12/19/21 2345 ??? vancomycin pharmacy to dose placeholder Intravenous See Admin Instructions Wanda Ronnie Kian, FILTER WORKER Allergies Allergen Reactions ??? Fish Oil Unknown ??? Amoxicillin Rash ??? Penicillins Rash Review of Systems Constitutional: Negative. Respiratory: Negative. Cardiovascular: Negative. Gastrointestinal: Negative. Skin: Positive for wound. Objective: I/O last 3 completed shifts: In: - Out: 200 [Urine:200] Blood pressure 111/67, pulse 89, temperature 98.4 ??F (36.9 ??C), temperature source Oral, resp. rate 20, height 5' 6 (1.676 m), weight 95.3 kg (210 lb 1.6 oz), last menstrual period 10/29/2004, SpO2 100 %. Physical Exam HENT: Head: Atraumatic. Skin: Neurological: Mental Status: She is alert. Lab Results Component Value Date NA 137 12/20/2021 K 4.8 12/20/2021 CL 105 12/20/2021 CO2 26.8 12/20/2021 AGAP 5.2 12/20/2021 BUN 24 (H) 12/20/2021 CR 1.14 (H) 12/20/2021 BUNCREATININ 21.1 12/20/2021 GFRNON 53 (L) 05/10/2021 GFR 62 (L) 05/10/2021 GLU 182 (H) 12/20/2021 CA 9.6 12/20/2021 Lab Results Component Value Date WBC 8.3 12/20/2021 HGB 12.2 12/20/2021 PLT 319 12/20/2021 Lab Results Component Value Date CHOL 150 07/10/2021 TRI 333 (H) 07/10/2021 HDL 31 (L) 07/10/2021 TP 8.0 12/19/2021 ALB 2.9 (L) 12/19/2021 ALT 22 12/19/2021 HGBA1C 7.7 12/08/2021 TSH 1.990 07/09/2021 Principal Problem: Diabetic foot infection (CMS/[facility]) SNOMED CT(R): INFECTION OF FOOT DUE TO DIABETES MELLITUS Plan: Will consult podiatry for bone biopsy. HUBERT HERNANDEZ MD 12/20/2021 * Shana Martinez, HUMAN RESOURCES ADMIN - 12/20/2021 3:55 PM CDT 12/20 Discussed in rounds, awaiting MRI and vascular surgery recommendations cw * Narda Sanchez RN - 12/20/2021 3:36 PM CDT This RN called MRI to check on possible time for Lety's Left foot MRI. This RN was told that [facility] department has had to fit the inpatient people in between ED patients so they werent able to give me a time. MRI form was also updated with Lety's past surgeries. Eduardo Aguillon APRN notified. * Narda Sanchez RN - 12/20/2021 1:54 PM CDT Problem: Pain Goal: Patient's pain/discomfort [...] to cope with his/her illness. Outcome: Progressing Problem: Pain - Acute Goal: Achieve acceptable pain level Outcome: Progressing Problem: Constipation Goal: Bowel elimination within specified parameters Outcome: Met This Shift * Eduardo Aguillon APRN - 12/20/2021 11:04 AM CDT Hospitalist Daily Progress Note Subjective She is resting in bed on exam. She still continues with left greater than right foot pain. She is unsure of the plan going forward, if she will have a bone biopsy. Her constipation has resolved afterresuming her home medication, Linzess. Objective Filed Vitals: 12/19/21 1958 12/20/21 0021 12/20/21 0427 12/20/21 0737 BP: 135/80 123/71 110/72 126/68 Pulse: 95 95 88 90 Resp: 18 (!) 7 17 20 Temp: 98.2 ??F (36.8 ??C) 98.1 ??F (36.7 ??C) 98.4 ??F (36.9 ??C) TempSrc: Oral Oral Oral Oral SpO2: 97% 100% 100% 100% Weight: Height: Intake/Output 24H Total: Intake/Output Summary (Last 24 hours) at 12/20/2021 1104 Last data filed at 12/19/2021 1646 Gross per 24 hour Intake 240 ml Output 200 ml Net 40 ml Physical Exam: -GENERAL: No acute distress, Well nourished, Well developed -HEAD: Normocephalic, Atraumatic -EYES: Extraocular movements intact; PEERL -LUNGS: Effort normal, Clear to auscultation bilaterally, No wheezes, No crackles, No rhonchi -CVS: Regular rate and rhythm, S1 and S2 normal -ABDOMEN: Soft, Non tender, Non distended, +BS -EXT: No lower extremity edema -NEURO: Awake, alert, oriented, No gross neuro deficits -SKIN: Skin color, texture, turgor normal. Ulcerative wound to 2nd right toe anterior and posterior; wound to anterior right great toe. Ulceration to left 4th toe. Dusky discoloration to distal aspects of digits of left foot; calluses on plantar aspect of left foot Medications ??? amLODIPine 10 mg Oral nightly ??? atorvastatin 20 mg Oral Daily ??? cefTRIAXone 1 g Intravenous Q24H ??? docusate sodium 100 mg Oral BID ??? heparin (porcine) 5,000 Units Subcutaneous 2 times per day ??? hydroCHLOROthiazide 25 mg Oral QAM ??? hydrOXYzine 25 mg Oral Nightly at bedtime ??? insulin glargine 0.125 Units/kg Subcutaneous Nightly at bedtime ??? insulin lispro 0-16 Units Subcutaneous TID AC And ??? insulin lispro 0-8 Units Subcutaneous Nightly at bedtime ??? linaCLOtide 145 mcg Oral QAM AC ??? lisinopril 40 mg Oral QPM ??? pantoprazole EC 40 mg Oral Daily ??? polyethylene glycol 1 packet Oral Daily ??? Senna 8.6 mg Oral Nightly at bedtime ??? Tdap 0.5 mL Intramuscular Once ??? vancomycin 1,250 mg Intravenous Q24H ??? vancomycin pharmacy to dose Intravenous See Admin Instructions bisacodyl, bisacodyl EC, cyclobenzaprine, dextrose 10 % bolus, glucagon, glucose, morphine, naLOXone Labs, Imaging, Other Studies Recent Labs Lab 12/16/21 1420 12/17/21 0610 12/18/21 0530 12/19/21 0530 12/20/21 0940 WBC 12.1* 7.9 7.9 8.6 8.3 RBC 4.37 3.99* 3.65* 3.74* 4.03* HGB 13.3 12.2 11.1* 11.3* 12.2 HCT 39.7 36.2* 32.6* 33.7* 36.4* MCV 90.8 90.7 89.3 90.1 90.3 MCH 30.4 30.6 30.4 30.2 30.3 MCHC 33.5 33.7 34.0 33.5 33.5 PLT 326 292 287 289 319 RDW 12.8 12.8 12.7 12.9 12.8 MPV 10.9 10.9 10.8 10.8 11.1 PERNEU 65.6 54.5 53.2 53.4 60.2 PERLYM 29.9 38.5 39.9 39.1 32.6 PERMON 3.1 5.2 5.0 5.7 5.3 LYMC 3.61 3.06 3.13 3.35 2.71 MONOC 0.37 0.41 0.39 0.49 0.44 EOSC 0.09 0.09 0.10 0.08 0.09 BASOC 0.05 0.03 0.04 0.04 0.05 DTYPE AUTOMATED DIFFERENTIAL AUTOMATED DIFFERENTIAL AUTOMATED DIFFERENTIAL AUTOMATED DIFFERENTIAL AUTOMATED DIFFERENTIAL Recent Labs Lab 12/16/21 1420 12/17/21 0610 12/18/21 0530 12/19/21 0530 12/20/21 0940 NA 137 137 139 137 137 K 3.3* 3.9 4.0 4.5 4.8 CL 104 105 107 105 105 CO2 28.5 29.7 27.0 28.8 26.8 AGAP 4.5* 2.3* 5.0 3.2* 5.2 BUN 15 17 19* 21* 24* CR 1.00 0.92 0.99 1.02 1.14* BUNCREATININ 15.0 18.5 19.2 20.6 21.1 GLU 141* 154* 131* 91 182* CA 9.8 9.2 8.9 9.4 9.6 TP 9.8* 8.2 7.7 8.0 -- ALB 3.6 3.1* 2.8* 2.9* -- TBIL 0.4 0.4 0.2 0.3 -- ALKP 146* 126 118 120 -- AST 17 14* 13* 16 -- ALT 23 20 17 22 -- Recent Labs Lab 12/16/21 1834 INR 1.0 PTT 26.5 Recent Labs Lab 12/16/21 1420 12/16/21 1425 TROP -- 7 CPK 185 -- Recent Labs Lab 12/16/21 1407 PROCT <0.05 Results for orders placed or performed during the hospital encounter of 08/11/19 URINALYSIS, AUTO, COMPLETE Result Value Ref Range Specimen Type URINE CLEAN CATCH COLOR (U) LIGHT YELLOW TRANSPARENCY CLEAR Specific Taylor (U) 1.024 1.001 - 1.030 U PH 5.5 5.0 - 9.0 LEUKOCYTE ESTERASE NEGATIVE NEGATIVE NITRITES NEGATIVE NEGATIVE PROTEIN (U) 70 (H) <30 MG/DL URINE GLUCOSE 200 (A) NORMAL MG/DL U KETONES NEGATIVE NEGATIVE MG/DL UROBILINOGEN NORMAL NORMAL MG/DL BILIRUBIN (U) NEGATIVE NEGATIVE MG/DL BLOOD NEGATIVE NEGATIVE CULTURE & SENSITIVITY INDICATED? CULTURE IS NOT INDICATED MUCUS RARE /LPF WBC/HPF 1 <6 /HPF RBC/HPF 1 <6 /HPF BACTERIA (URINE) RARE (A) NONE /HPF SQUAMOUS EPITHELIALS RARE /HPF Imaging USV ART REST W ADRIANA LOW EXT Result Date: 12/16/2021 ARTERIAL DOPPLER - ADRIANA BILATERAL LOWER EXTREMITY VASCULAR LAB Pat.Name: TYSON MCNEAL Pat.ID: [id number] .Date: 12/16/2021 Refer.MD: Yasmin Segura Exam Time: 2:52:00 PM Study Type:MARINO VS Arterial Doppler Legs NOHEMY Height: 66in Age: 2 1970,51Y Sex: FEMALE Sonogrphr: Shahla Toscano RDMS, RVT Pat. Stat.:Outpatient Room: ER History / Clinical: Rt foot wounds. L>R severe leg pain. Lt foot cool to touch with weak pulse. PMH- DM. HTN. HLD. neurop. L2, L3 amp. BMI 39. Prior 06/21/21- Rt 1.12, Lt 1.24 Procedures: Doppler waveforms, Digit PPG, Systolic Pressures w/ADRIANA Race: -Congolese ++++++++++++++++++++++++++++++++++++ SUMMARY: ++++++++++++++++++++++++++++++++++++ Joceline ADRIANA Criteria: >1.30 [...] Posterior Tibial triphasic, medium amplitude with ADRIANA 0.959 ; DP/Anterior Tibial triphasic, high amplitude with ADRIANA 0.959 . Digitflow by PPG is not assessed due to wound with bandages. Left leg: Common Femoral waveform is triphasic, high amplitude; Popliteal biphasic, high amplitude; Posterior Tibial biphasic, medium amplitudewith ADRIANA 0.973 ; DP/Anterior Tibial biphasic, medium amplitude with ADRIANA 1.08 . Digit flow by PPG islow amplitude with DBI 0.676 . Compared to previous exam done 06/21/2021 , there is no significant change. CONCLUSION: ++++++++++++++++++++++++++++++++++++ FINDINGS: ++++++++++++++++++++++++++++++++++++ ++++++++++++++++++++++++++++++++++++ MEASUREMENTS: ++++++++++++++++++++++++++++++++++++ DOPPLER Left E COMMERCE ARCHITECT E COMMERCE ARCHITECT PSV 123 cm/s Left Dist Pop A Dist Pop A PSV 94.2 cm/s Left Dist HORSE FARM MANAGER Dist HORSE FARM MANAGER PSV 46.2 cm/s Left Dist DOMINGA Dist DOMINGA PSV 56.5 cm/s Right E COMMERCE ARCHITECT E COMMERCE ARCHITECT PSV 145 cm/s Right Dist Pop A Dist Pop A PSV 107 cm/s Right Dist HORSE FARM MANAGER Dist HORSE FARM MANAGER PSV 56.5 cm/s Right Dist DOMINGA Dist DOMINGA PSV 82.8 cm/s PRESSURES Right Brachial Brach P 148 mmHg Right Ankle DP AnkleDP P 142 mmHg Right Ankle PT AnklePT P 142 mmHg Right ADRIANA PT ADRIANA PT 0.959 Right ADRIANA DP ADRIANA DP 0.959 Left Brachial Brach P 140 mmHg Left Ankle DP AnkleDP P 160 mmHg Left Ankle PT AnklePT P 144 mmHg Left Great Toe GreatToe P 100 mmHg Left ADRIANA PT ADRIANA PT 0.973 Left ADRIANA DP ADRIANA DP 1.08 Left TBI TBI 0.676 Unsigned Hubert Hernandez M.D. XR ABD KUB Result Date: 12/16/2021 HISTORY: no BM in 5 days; n/v TECHNIQUE: Supine image(s) of the abdomen and pelvis were obtained on12/16/2001 at 1949 hours. COMPARISON: None. FINDINGS: LINES OR TUBES: None LUNG BASES: Unremarkable. BOWEL GAS PATTERN: There are no abnormally dilated loops of bowel. Multiple scattered tablets are throughout the abdomen FREE AIR: No free air is detected on this supine exam. CALCIFICATIONS/OTHER: None MUSCULOSKELETAL: The osseous structures are unremarkable. IMPRESSION: 1. No radiographic evidence of bowel obstruction. 2. Mild fecal burden is seen within the colon. Ordered By: WANDA MERCER Interpreted By: Mercy Irving MD, 12/16/2021 8:04 PM XR FOOT LT 3V Result Date: 11/29/2021 EXAMINATION: Left foot EXAM DATE: 11/28/2021 11:48 AM REASON FOR EXAM: pain Foot pain and swelling COMPARISON: 01/17/2021 TECHNIQUE: 3 views FINDINGS: Moderate soft tissue swelling. Hypertrophic bone and mixed sclerotic and lucent changes throughout the midfoot compatible withneuropathic disease, grossly stable. Bone spur suggests chronic plantar fasciitis. Status post second and third digit amputations. No obvious acute erosive changes to indicate acute osteomyelitis. Ifthere is clinical concern for acute osteomyelitis, MRI recommended. No evidence of fracture or dislocation. IMPRESSION: 1. Prior amputations and midfoot neuropathic disease, stable. No definite acute osteomyelitis, but if there is significant clinical concern for osteomyelitis, MRI is recommended. ReferredBy: Interpreted By: Isaías Jones MD, 11/29/2021 8:02 AM XR MULTI TOE RT Result Date: 12/16/2021 IMAGING STUDIES: XR MULTI TOE RT DATE: 12/16/2021 2:26 PM HISTORY: diabetic ulcers to right first and second toes 51-year-old female with diabetic ulcers of the right foot first and second toes. Reported ulcerations along the dorsal aspect of the right first toe and volar aspect of the right secondtoe and debrided. Additional history of increasing leg pain, left greater than right, with cool feet and weak pulses. COMPARISON: Right foot 01/17/2021. DISCUSSION: AP, oblique, and lateral views of the right foot. The posterior foot is excluded on lateral view. Subtle lucency along the distal medial aspect of the great toe near the level of the nailbed and of the medial tip of the second digit. On lateral view, small defect along the plantar aspect of the great toe distal phalanx but stable from 2020 study. No appreciable new fracture or erosion. No appreciable acute periosteal reaction. Maintained great toe interphalangeal joint space and second digit interphalangeal joint spaces. Old healed fracture of the proximal fifth metatarsal. Moderate degenerative changes in the midfoot. Plantarcalcaneal spur. Atherosclerotic calcification in the distal leg and in the foot, including the digital arteries. IMPRESSION: No appreciable fracture, dislocation, periosteal reaction, or acute bony erosion. If clinical concern for osteomyelitis, MRI is a more sensitive test. Ordered By: DESIREE MACKENZIE Interpreted By: Angelito Tidwell, 12/16/2021 2:50 PM XR FOOT LT 2V Result Date: 12/16/2021 PROCEDURE: XR FOOT LT 2V HISTORY: Left foot pain. COMPARISON: X-ray right foot TECHNIQUE: AP, lateral and oblique rotated views of the left foot were obtained. FINDINGS: There is no acute fracture orosseous malalignment identified. There are postsurgical changes from prior second and third toe amputations. Degenerative changes of the left midfoot is present. The joint spaces are maintained. There is a moderate plantar calcaneal enthesophyte. Mild soft swelling of the foot. IMPRESSION: 1. No acute osseous abnormality is identified. 2. Status post second and third toe amputations. 3. Mild soft tissue swelling of the left foot. Ordered By: WANDA MERCER Interpreted By: Mercy Irving MD, 12/16/2021 8:06 PM MRI right foot WO 12/17/21 1. Mild osteomyelitis of the distal first phalanx. 2. Mild osteomyelitis of the middle and distal second digit phalanges. 3. No drainable fluid collection or abscess. 4. 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1970 Requested By: DESIREE MACKENZIE Order Number: [id number] [place] MD: Carroll Varela Measurements Intervals [place] Rate: 89 P: 34 AR: 160 QRS: 15 QRSD: 87 T: 102 QT: 364 QTc: 445 Interpretive Statements SINUS RHYTHM MINIMAL VOLTAGE CRITERIA FOR LVH, CONSIDER NORMAL VARIANT [MEETS CRITERIA IN ONE OF: R(aVL), S(V1), R(V5), R(V5/V6)+S(V1)] NONSPECIFIC T-WAVE ABNORMALITY Compared to ECG 07/10/2021 14:18:26 Ventricular premature complex(es) no longer present T-wave abnormality still present Assessment & Plan Diabetic Foot Infection- Right foot with OM Xray toes of left foot as above Blood Cultures (12/16) - NGTD Lactate WNL=1.3 IV Ceftriaxone, IV Vancomycin Pharmacy to dose Vancomycin Neuro vascular checks Pain management monitor for toxicity Wound care Consult MRI Right Foot with mild OM to distal 1st phalanx and middle/distal 2nd phalanges ID consultation appreciated. Agree with abx, but recommend broadening Rocephin to cefepime. Recommended bone sample and then determine abx disposition. Prone to yeast infections w/ abx. Consider prophylactic diflucan. Will consult vascular. Appreciate recommendations IR consulted for bone biopsy, but unable to do based on too small of a target. Will reach back out to vascular to see if amenable to performing biopsy. Diabetic foot wound, left 4th digit Continue treatment above. MRI left foot ordered. ?? Diabetes Hold Sitagliptin and Trulicity Continue home basal insulin accu checks achs-s/s protocol A1c=7.7 on 12/08/21 Pt had hypoglycemic episodes on 12/19, that resolved. Home insulin dc'd. ssi started Now hyperglycemic. Will resume Lantus at low dose and titrate accordingly. Nighttime snack ordered. ?? Hx of multiple toe amputation-left foot Hx of Charcot foot-left Increased pain/swelling Xray left foot as above Neuro vascular checks Pain management monitor for toxicity Offered suppository today. Followed with Dr. Hernandez and Dr. Santiago in the past ?? Acute on chronic constipation No BM in 5 days KUB as above Intensify bowel regimen Continue to monitor carefully Resolved with resuming Linzess Hypokalemia-resolved K 3.3 Replace and monitor Hypomagnesemia-resolved Mg < 0.3 Replace and monitor CKD 2 Appears stable. Monitor closely.?? Hypertension Continue home BP medication Monitor BP and titrate to maitain target goal ?? Hyperlipidemia Continue statin Obesity BMI 32.77 Encourage Lifestyle Changes ?? CODE: FULL CODE POA: Pt does not have a medical POA. Her medical point of contact is her spouse ?? VTE: Heparin subcutaneous ? EDUARDO AGUILLON APRN Cosigned by Maggy Merino DO at 12/20/2021 5:26 PM CDT Associated attestation - Maggy Merino DO - 12/20/2021 5:26 PM CDT I, Maggy Merino DO, participated in the care of this patient today and discussed the plan of carewith KIAN Valdez, who shared in this visit. I have reviewed the KIAN's documentation and agree with the findings except as I have documented. I personally spent 40 minutes, caring for this patient. Maggy Merino DO * Gigi Sutton RN - 12/19/2021 2:29 PM CDT Patient/plan of care discussed in discharge planning meeting. MRI's ordered, vascular, podiatry, IDrecs pending, currently on IV abx. * ELLEN Justice - 12/19/2021 10:27 AM CDT Hospitalist Daily Progress Note Subjective Patient is seen and examined at the bedside this morning, her is also present. She states that she is having just a little bit of some lower abdominal pain and feels like she has to urinate often. States she is passing gas but has not had a bowel movement yet today. She denies any shortnessof breath, cough, fever, chills, chest pain. Objective Filed Vitals: 12/18/21 1900 12/19/21 0041 12/19/21 0409 12/19/21 0802 BP: 114/64 112/62 127/84 104/65 Pulse: 97 89 90 85 Resp: 17 17 16 16 Temp: 98.1 ??F (36.7 ??C) 98.1 ??F (36.7 ??C) 97.4 ??F (36.3 ??C) 97.6 ??F (36.4 ??C) TempSrc: Oral Oral Oral Oral SpO2: 99% 97% 99% 100% Weight: 95.3 kg (210 lb 1.6 oz) Height: Intake/Output 24H Total: Intake/Output Summary (Last 24 hours) at 12/19/2021 1027 Last data filed at 12/18/20212034 Gross per 24 hour Intake 250 ml Output -- Net 250 ml Physical Exam: -GENERAL: No acute distress, Well nourished, Well developed -HEAD: Normocephalic, Atraumatic -EYES: Extraocular movements intact; PEERL -LUNGS: Effort normal, Clear to auscultation bilaterally, No wheezes, No crackles, No rhonchi -CVS: Regular rate and rhythm, S1 and S2 normal -ABDOMEN: Soft, Non tender, Non distended, +BS -EXT: No lower extremity edema -NEURO: Awake, alert, oriented, No gross neuro deficits -SKIN: Skin color, texture, turgor normal. Ulcerative wound to 2nd digit right foot anterior and posterior; wound to right great toe. Ulceration to left 4th toe. Dusky discoloration to distal aspects of digits of left foot; calluses on plantar aspect of left foot Medications ??? amLODIPine 10 mg Oral nightly ??? atorvastatin 20 mg Oral Daily ??? cefTRIAXone 1 g Intravenous Q24H ??? docusate sodium 100 mg Oral BID ??? heparin (porcine) 5,000 Units Subcutaneous 2 times per day ??? hydroCHLOROthiazide 25 mg Oral QAM ??? hydrOXYzine 25 mg Oral Nightly at bedtime ??? insulin aspart protamine-insulin aspart 65 Units Subcutaneous QAM And ??? insulin aspart protamine-insulin aspart 55 Units Subcutaneous Daily with supper ??? lisinopril 40 mg Oral QPM ??? pantoprazole EC 40 mg Oral Daily ??? polyethylene glycol 1 packet Oral Daily ??? Senna 8.6 mg Oral Nightly at bedtime ??? Tdap 0.5 mL Intramuscular Once ??? vancomycin 1,250 mg Intravenous Q24H ??? vancomycin pharmacy to dose Intravenous See Admin Instructions bisacodyl, bisacodyl EC, cyclobenzaprine, dextrose 10 % bolus, glucagon, glucose, morphine, naLOXone Labs, Imaging, Other Studies Recent Labs Lab 12/16/21 1420 12/17/21 0610 12/18/21 0530 12/19/21 0530 WBC 12.1* 7.9 7.9 8.6 RBC 4.37 3.99* 3.65* 3.74* HGB 13.3 12.2 11.1* 11.3* HCT 39.7 36.2* 32.6* 33.7* MCV 90.8 90.7 89.3 90.1 MCH 30.4 30.6 30.4 30.2 MCHC 33.5 33.7 34.0 33.5 PLT 326 292 287 289 RDW 12.8 12.8 12.7 12.9 MPV 10.9 10.9 10.8 10.8 PERNEU 65.6 54.5 53.2 53.4 PERLYM 29.9 38.5 39.9 39.1 PERMON 3.1 5.2 5.0 5.7 L[facility]MC 3.61 3.06 3.13 3.35 MONOC 0.37 0.41 0.39 0.49 EOSC 0.09 0.09 0.10 0.08 BASOC 0.05 0.03 0.04 0.04 DTYPE AUTOMATED DIFFERENTIAL AUTOMATED DIFFERENTIAL AUTOMATED DIFFERENTIAL AUTOMATED DIFFERENTIAL Recent Labs Lab 12/16/21 1420 12/17/21 0610 12/18/21 0530 12/19/21 0530 NA 137 137 139 137 K 3.3* 3.9 4.0 4.5 CL 104 105 107 105 CO2 28.5 29.7 27.0 28.8 AGAP 4.5* 2.3* 5.0 3.2* BUN 15 17 19* 21* CR 1.00 0.92 0.99 1.02 BUNCREATININ 15.0 18.5 19.2 20.6 GLU 141* 154* 131* 91 CA 9.8 9.2 8.9 9.4 TP 9.8* 8.2 7.7 8.0 ALB 3.6 3.1* 2.8* 2.9* TBIL 0.4 0.4 0.2 0.3 ALKP 146* 126 118 120 AST 17 14* 13* 16 ALT 23 20 17 22 Recent Labs Lab 12/16/21 1834 INR 1.0 PTT 26.5 Recent Labs Lab 12/16/21 1420 12/16/21 1425 TROP -- 7 CPK 185 -- Recent Labs Lab 12/16/21 1407 PROCT <0.05 Results for orders placed or performed during the hospital encounter of 08/11/19 URINALYSIS, AUTO, COMPLETE Result Value Ref Range Specimen Type URINE CLEAN CATCH COLOR (U) LIGHT YELLOW TRANSPARENCY CLEAR Specific Taylor (U) 1.024 1.001 - 1.030 U PH 5.5 5.0 - 9.0 LEUKOCYTE ESTERASE NEGATIVE NEGATIVE NITRITES NEGATIVE NEGATIVE PROTEIN (U) 70 (H) <30 MG/DL URINE GLUCOSE 200 (A) NORMAL MG/DL U KETONES NEGATIVE NEGATIVE MG/DL UROBILINOGEN NORMAL NORMAL MG/DL BILIRUBIN (U) NEGATIVE NEGATIVE MG/DL BLOOD NEGATIVE NEGATIVE CULTURE & SENSITIVITY INDICATED? CULTURE IS NOT INDICATED MUCUS RARE /LPF WBC/HPF 1 <6 /HPF RBC/HPF 1 <6 /HPF BACTERIA (URINE) RARE (A) NONE /HPF SQUAMOUS EPITHELIALS RARE /HPF Imaging USV ART REST W ADRIANA LOW EXT Result Date: 12/16/2021 ARTERIAL DOPPLER - ADRIANA BILATERAL LOWER EXTREMITY VASCULAR LAB Pat.Name: TYSON MCNEAL Pat.ID: [id number] .Date: 12/16/2021 Refer.MD: Yasmin Segura Exam Time: 2:52:00 PM Study Type:MARINO VS Arterial Doppler Legs NOHEMY Height: 66in Age: 2 1970,51Y Sex: FEMALE Sonogrphr: Shahla Toscano RDMS, RVT Pat. Stat.:Outpatient Room: ER History / Clinical: Rt foot wounds. L>R severe leg pain. Lt foot cool to touch with weak pulse. PMH- DM. HTN. HLD. neurop. L2, L3 amp. BMI 39. Prior 06/21/21- Rt 1.12, Lt 1.24 Procedures: Doppler waveforms, Digit PPG, Systolic Pressures w/ADRIANA Race: -Congolese ++++++++++++++++++++++++++++++++++++ SUMMARY: ++++++++++++++++++++++++++++++++++++ Joceline ADRIANA Criteria: >1.30 = falsely elevated, calcified vessels; 1.00-1.29 = no signif ischemia at rest ; .80-.99 = mild PAD, asymptomatic; .50-.79 = moderate PAD, claudication; <.50 = severe PAD, rest pain;<.30 = critical PAD, necrosis, poor healing (Digits: DBI >.60 Normal; <.60 Abnormal) (Positive Stress eval: ADRIANA decrease of >.20 or >20% pressure drop) Right leg: Common Femoral waveform is triphasic, high amplitude; Popliteal triphasic, high amplitude; Posterior Tibial triphasic, medium amplitude with ADRIANA 0.959 ; DP/Anterior Tibial triphasic, high amplitude with ADRIANA 0.959 . Digit flow by PPG is not assessed due to wound with bandages. Left leg: Common Femoral waveform is triphasic, high amplitude; Popliteal biphasic, high amplitude; Posterior Tibial biphasic, medium amplitude with ADRIANA 0.973 ; DP/Anterior Tibial biphasic, medium amplitude with ADRIANA 1.08 . Digit flow by PPG is low amplitude with DBI 0.676 . Compared to previous exam done 06/21/2021 , there is no significant change. CONCLUSION: ++++++++++++++++++++++++++++++++++++ FINDINGS: ++++++++++++++++++++++++++++++++++++++++++++++++++++++++++++++++++++++++ MEASUREMENTS: ++++++++++++++++++++++++++++++++++++ DOPPLER Left E COMMERCE ARCHITECT E COMMERCE ARCHITECT PSV 123 cm/s Left Dist Pop A Dist Pop A PSV 94.2 cm/s Left Dist HORSE FARM MANAGER Dist HORSE FARM MANAGER PSV 46.2 cm/sLeft Dist DOMINGA Dist DOMINGA PSV 56.5 cm/s Right E COMMERCE ARCHITECT E COMMERCE ARCHITECT PSV 145 cm/s Right Dist Pop A Dist Pop A PSV 107cm/s Right Dist HORSE FARM MANAGER Dist HORSE FARM MANAGER PSV 56.5 cm/s Right Dist DOMINGA Dist DOMINGA PSV 82.8 cm/s PRESSURES Right Brachial Brach P 148 mmHg Right Ankle DP AnkleDP P 142 mmHg Right Ankle PT AnklePT P 142 mmHg Right ADRIANA PT ADRIANA PT 0.959 Right ADRIANA DP ADRIANA DP 0.959 Left Brachial Brach P 140 mmHg Left Ankle DP AnkleDP P 160 mmHg Left Ankle PT AnklePT P 144 mmHg Left Great Toe GreatToe P 100 mmHg Left ADRIANA PT ADRIANA PT 0.973Left ADRIANA DP ADRIANA DP 1.08 Left TBI TBI 0.676 Unsigned Hubert Hernandez M.D. XR ABD KUB Result Date: 12/16/2021 HISTORY: no BM in 5 days; n/v TECHNIQUE: Supine image(s) of the abdomen and pelvis were obtained on12/16/2001 at 1949 hours. COMPARISON: None. FINDINGS: LINES OR TUBES: None LUNG BASES: Unremarkable. BOWEL GAS PATTERN: There are no abnormally dilated loops of bowel. Multiple scattered tablets are throughout the abdomen FREE AIR: No free air is detected on this supine exam. CALCIFICATIONS/OTHER: None MUSCULOSKELETAL: The osseous structures are unremarkable. IMPRESSION: 1. No radiographic evidence of bowel obstruction. 2. Mild fecal burden is seen within the colon. Ordered By: WANDA MERCER Interpreted By: Mercy Irving MD, 12/16/2021 8:04 PM XR FOOT LT 3V Result Date: 11/29/2021 EXAMINATION: Left foot EXAM DATE: 11/28/2021 11:48 AM REASON FOR EXAM: pain Foot pain and swelling COMPARISON: 01/17/2021 TECHNIQUE: 3 views FINDINGS: Moderate soft tissue swelling. Hypertrophic bone and mixed sclerotic and lucent changes throughout the midfoot compatible withneuropathic disease, grossly stable. Bone spur suggests chronic plantar fasciitis. Status post second and third digit amputations. No obvious acute erosive changes to indicate acute osteomyelitis. Ifthere is clinical concern for acute osteomyelitis, MRI recommended. No evidence of fracture or dislocation. IMPRESSION: 1. Prior amputations and midfoot neuropathic disease, stable. No definite acute osteomyelitis, but if there is significant clinical concern for osteomyelitis, MRI is recommended. ReferredBy: Interpreted By: Isaías Jones MD, 11/29/2021 8:02 AM XR MULTI TOE RT Result Date: 12/16/2021 IMAGING STUDIES: XR MULTI TOE RT DATE: 12/16/2021 2:26 PM HISTORY: diabetic ulcers to right first and second toes 51-year-old female with diabetic ulcers of the right foot first and second toes. Reported ulcerations along the dorsal aspect of the right first toe and volar aspect of the right secondtoe and debrided. Additional history of increasing leg pain, left greater than right, with cool feet and weak pulses. COMPARISON: Right foot 01/17/2021. DISCUSSION: AP, oblique, and lateral views of the right foot. The posterior foot is excluded on lateral view. Subtle lucency along the distal medial aspect of the great toe near the level of the nailbed and of the medial tip of the second digit. On lateral view, small defect along the plantar aspect of the great toe distal phalanx but stable from 2020 study. No appreciable new fracture or erosion. No appreciable acute periosteal reaction. Maintained great toe interphalangeal joint space and second digit interphalangeal joint spaces. Old healed fracture of the proximal fifth metatarsal. Moderate degenerative changes in the midfoot. Plantarcalcaneal spur. Atherosclerotic calcification in the distal leg and in the foot, including the digital arteries. IMPRESSION: No appreciable fracture, dislocation, periosteal reaction, or acute bony erosion. If clinical concern for osteomyelitis, MRI is a more sensitive test. Ordered By: DESIREE MACKENZIE Interpreted By: Angelito Tidwell, 12/16/2021 2:50 PM XR FOOT LT 2V Result Date: 12/16/2021 PROCEDURE: XR FOOT LT 2V HISTORY: Left foot pain. COMPARISON: X-ray right foot TECHNIQUE: AP, lateral and oblique rotated views of the left foot were obtained. FINDINGS: There is no acute fracture orosseous malalignment identified. There are postsurgical changes from prior second and third toe amputations. Degenerative changes of the left midfoot is present. The joint spaces are maintained. There is a moderate plantar calcaneal enthesophyte. Mild soft swelling of the foot. IMPRESSION: 1. No acute osseous abnormality is identified. 2. Status post second and third toe amputations. 3. Mild soft tissue swelling of the left foot. Ordered By: WANDA MERCER Interpreted By: Mercy Irving MD, 12/16/2021 8:06 PM MRI right foot WO 12/17/21 1. Mild osteomyelitis of the distal first phalanx. 2. Mild osteomyelitis of the middle and distal second digit phalanges. 3. No drainable fluid collection or abscess. 4. 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1970 Requested By: DESIREE MACKENZIE Order Number: [id number] [place] MD: Carroll Varela Measurements Intervals [place] Rate: 89 P: 34 AR: 160 QRS: 15 QRSD: 87 T: 102 QT: 364 QTc: 445 Interpretive Statements SINUS RHYTHM MINIMAL VOLTAGE CRITERIA FOR LVH, CONSIDER NORMAL VARIANT [MEETS CRITERIA IN ONE OF: R(aVL), S(V1), R(V5), R(V5/V6)+S(V1)] NONSPECIFIC T-WAVE ABNORMALITY Compared to ECG 07/10/2021 14:18:26 Ventricular premature complex(es) no longer present T-wave abnormality still present Assessment & Plan Diabetic Foot Infection- Right foot with OM Xray toes of left foot as above Blood Cultures (12/16) - NGTD Lactate WNL=1.3 IV Ceftriaxone, IV Vancomycin Pharmacy to dose Vancomycin Neuro vascular checks Pain management monitor for toxicity Wound care Consult MRI Right Foot with mild OM to distal 1st phalanx and middle/distal 2nd phalanges ID consultation appreciated. Agree with abx, but recommend broadening Rocephin to cefepime. Recommended bone sample and then determine abx disposition. Prone to yeast infections w/ abx. Consider prophylactic diflucan. Will consult vascular. Appreciate recommendations Bone biposy pending Diabetic foot wound, left 4th digit Continue treatment above. MRI left foot. ?? Diabetes Hold Sitagliptin and Trulicity Continue home basal insulin accu checks achs-s/s protocol A1c=7.7 on 12/08/21 Pt had hypoglycemic episodes today, that resolved Home insulin dc'd ssi started Resume as warranted ?? Hx of multiple toe amputation-left foot Hx of Charcot foot-left Increased pain/swelling Xray left foot as above Neuro vascular checks Pain management monitor for toxicity Offered suppository today. Followed with Dr. Hernandez and Dr. Santiago in the past ?? Constipation No BM in 5 days KUB as above Intensify bowel regimen Continue to monitor carefully Ok to use home Linzess if able to bring in UA to r/o abd pain Hypokalemia-resolved K 3.3 Replace and monitor Hypomagnesemia-resolved Mg < 0.3 Replace and monitor ?? Hypertension Continue home BP medication Monitor BP and titrate to maitain target goal ?? Hyperlipidemia Continue statin Obesity BMI 32.77 Encourage Lifestyle Changes ?? CODE: FULL CODE POA: Pt does not have a medical POA. Her medical point of contact is her spouse ?? VTE: Heparin subcutaneous ? ELLEN JUSTICE Cosigned by Maggy Merino DO at 12/19/2021 6:58 PM CDT Associated attestation - Maggy Merino DO - 12/19/2021 6:58 PM CDT I, Maggy Merino DO, participated in the care of this patient today and discussed the plan of carewith KIAN Moreno, who shared in this visit. I have reviewed the KIAN's documentation and agree with the findings except as I have documented. I personally spent 30 minutes, caring for this patient. Maggy Merino DO * Anny Hearn, PharmD - 12/19/2021 9:45 AM CDT Vancomycin Pharmacy to Dose Day #4 Ordering Provider: Dr. Urbina Indication: osteomyelitis AUC goal: 400-600 Individualized trough goal: 12.9-16.9 Height 12/16/21 5' 6 (1.676 m) Weight 12/16/21 82.6 kg (182 lb) Date: WBC: SCR: CRCL: TMAX: LEVEL: 12/16 12.1 1.0 72.9ml/min 98.1 12/17 7.9 0.92 83.6ml/min 98.1 12/18 7.9 0.99 77.7ml/min 98.2 22.9 12/19 8.6 1.02 76.2 98.2 22.4 Other ABX: - Rocephin (12/16 - present) Cultures/Tests: - Blood x 2 (12/16): NG3D - R toes XR (12/16): No appreciable fracture, dislocation, periosteal reaction, or acute bony erosion. If clinical concern for osteomyelitis, MRI is a more sensitive test. - R foot MRI (12/17): 1. Mild osteomyelitis of the distal first phalanx. 2. Mild osteomyelitis of the middle and distal second digit phalanges... Kinetics Assessment (12/19): Regimen: 1250 mg IV every 24 hours. Start time: 19:00 on 12/19/2021 Exposure target: AUC24 (range)400-600 mg/L.hr AUC24,ss: 537 mg/L.hr PAUC*: 99 % Ctrough,ss: 14.9 mg/L Pconc*: 4 % Tox.: 10 % A/P: 51 YOF with PMH including hypertension, hyperlipidemia, history of COVID-19 infection in 2019, Diabetes with neuropathy and charcot foot; hx of multiple toe amputations of left foot ordered vancomycin [id number] for diabetic foot infection. Patient received a 1500 mg vancomycin loading dose in the ER followed by 1500 mg every 24 hours. Right foot MRI showed mild osteomyelitis to distal 1st phalanx and middle/distal 2nd phalanges. ID following. Per [facility] kinetics, today's vanco level (22.9) correlates with a therapeutic AUC on current regimen. Will continue vancomycin at 1250 mg q24h per PK data (above). No additional levels ordered at this time. Will follow vascular and ID notes to determine plan for osteomyelitis treatment. Will continue to monitor daily. * Pietro Blum, RudiD - 12/18/2021 1:47 PM CDT Vancomycin Pharmacy to Dose Day #3 Ordering Provider: Dr. Urbina Indication: cellulitis AUC goal: 400-600 Individualized trough goal: 7.9-11.9 Height 12/16/21 5' 6 (1.676 m) Weight 12/16/21 82.6 kg (182 lb) Date: WBC: SCR: CRCL: TMAX: LEVEL: 12/16 12.1 1.0 72.9ml/min 98.1 12/17 7.9 0.92 83.6ml/min 98.1 12/18 7.9 0.99 77.7ml/min 98.2 Cultures/Tests: - Blood x 2 (12/16): NG x 2 day Kinetics Assessment (12/18): Regimen: 1250 mg IV every 24 hours. Start time: 12:49 on 12/18/2021 Exposure target: AUC24 (range)400-600 mg/L.hr AUC24,ss: 489 mg/L.hr PAUC*: 93 % Ctrough,ss: 12.9 mg/L Pconc*: 1 % Tox.: 8 % Other ABX: - rocephin 12/16 - present A/P: 51 YOF with PMH including hypertension, hyperlipidemia, history of COVID-19 infection in 2019, Diabetes with Neuropathy and charcot foot; hx of multiple toe amputations of left foot ordered vancomycin pharmacy to dose for the indication of diabetic foot infection. Patient received a 1500 mg vancomycin loading dose in the ER and therapy continued with 1500 mg every 24 hours. Trough level obtained this morning was 22.9 mcg/mL and noted as intermediate fit per [facility]. Adjusted therapy to 1250 mg Q 24 H. Updated Kinetics assessment listed above. Will order a v ancomycin random level tomorrow to improve prediction accuracy. Will continue to monitor daily. * Eduardo Mitchell Oscar, FILTER WORKER - 12/18/2021 8:49 AM CDT Hospitalist Daily Progress Note Subjective Ms. Mcneal is resting in bed on exam. She still has not had a bowel movement. She is passing flatus,but feels bloated. She normally takes Linzess. She tells me about another spot on her left fourth toe that has been blackened for the last couple of months. She says she has more pain in her left foot than she does in her right. She was encouraged to get the Tdap vaccine by ID physician. She is hesitant and says she does not normally take vaccines. Explained benefits and low risks related to Tdapvaccine, but patient still reluctant. Objective Filed Vitals: 12/17/21 1555 12/17/21 2020 12/18/21 0653 12/18/21 0839 BP: 110/76 126/68 (!) 146/76 129/78 Pulse: 93 91 89 91 Resp: 18 18 Temp: 98.2 ??F (36.8 ??C) 98.2 ??F (36.8 ??C) 98.1 ??F (36.7 ??C) 97.9 ??F (36.6 ??C) TempSrc: Oral Oral Oral SpO2: 100% 100% 100% Weight: Height: Intake/Output 24H Total: Intake/Output Summary (Last 24 hours) at 12/18/2021 0849 Last data filed at 12/17/2021 1803 Gross per 24 hour Intake 760 ml Output -- Net 760 ml Physical Exam: -GENERAL: No acute distress, Well nourished, Well developed -HEAD: Normocephalic, Atraumatic -EYES: Extraocular movements intact; PEERL -LUNGS: Effort normal, Clear to auscultation bilaterally, No wheezes, No crackles, No rhonchi -CVS: Regular rate and rhythm, S1 and S2 normal -ABDOMEN: Soft, Non tender, Non distended, +BS -EXT: No lower extremity edema -NEURO: Awake, alert, oriented, No gross neuro deficits -SKIN: Skin color, texture, turgor normal. Ulcerative wound to 2nd digit right foot anterior and posterior; wound to right great toe. Ulceration to left 4th toe. Dusky discoloration to distal aspects of digits of left foot; calluses on plantar aspect of left foot Medications ??? amLODIPine 10 mg Oral nightly ??? atorvastatin 20 mg Oral Daily ??? cefTRIAXone 1 g Intravenous Q24H ??? docusate sodium 100 mg Oral BID ??? heparin (porcine) 5,000 Units Subcutaneous 2 times per day ??? hydroCHLOROthiazide 25 mg Oral QAM ??? hydrOXYzine 25 mg Oral Nightly at bedtime ??? insulin aspart protamine-insulin aspart 65 Units Subcutaneous QAM And ??? insulin aspart protamine-insulin aspart 55 Units Subcutaneous Daily with supper ??? lisinopril 40 mg Oral QPM ??? pantoprazole EC 40 mg Oral Daily ??? polyethylene glycol 1 packet Oral Daily ??? Senna 8.6 mg Oral Nightly at bedtime ??? Tdap 0.5 mL Intramuscular Once ??? vancomycin 1,500 mg Intravenous Q24H ??? vancomycin pharmacy to dose Intravenous See Admin Instructions bisacodyl, bisacodyl EC, cyclobenzaprine, dextrose 10 % bolus, glucagon, glucose, morphine, naLOXone Labs, Imaging, Other Studies Recent Labs Lab 12/16/21 1420 12/17/21 0610 12/18/21 0530 WBC 12.1* 7.9 7.9 RBC 4.37 3.99* 3.65* HGB 13.3 12.2 11.1* HCT 39.7 36.2* 32.6* MCV 90.8 90.7 89.3 MCH 30.4 30.6 30.4 MCHC 33.5 33.7 34.0 PLT 326 292 287 RDW 12.8 12.8 12.7 MPV 10.9 10.9 10.8 PERNEU 65.6 54.5 53.2 PERLYM 29.9 38.5 39.9 PERMON 3.1 5.2 5.0 LYMC 3.61 3.06 3.13 MONOC 0.37 0.41 0.39 EOSC 0.09 0.09 0.10 BASOC 0.05 0.03 0.04 DTYPE AUTOMATED DIFFERENTIAL AUTOMATED DIFFERENTIAL AUTOMATED DIFFERENTIAL Recent Labs Lab 12/16/21 1420 12/17/21 0610 12/18/21 0530 NA 137 137 139 K 3.3* 3.9 4.0 CL 104 105 107 CO2 28.5 29.7 27.0 AGAP 4.5* 2.3* 5.0 BUN 15 17 19* CR 1.00 0.92 0.99 BUNCREATININ 15.0 18.5 19.2 GLU 141* 154* 131* CA 9.8 9.2 8.9 TP 9.8* 8.2 7.7 ALB 3.6 3.1* 2.8* TBIL 0.4 0.4 0.2 ALKP 146* 126 118 AST 17 14* 13* ALT 23 20 17 Recent Labs Lab 12/16/21 1834 INR 1.0 PTT 26.5 Recent Labs Lab 12/16/21 1420 12/16/21 1425 TROP -- 7 CPK 185 -- Recent Labs Lab 12/16/21 1407 PROCT <0.05 Results for orders placed or performed during the hospital encounter of 08/11/19 URINALYSIS, AUTO, COMPLETE Result Value Ref Range Specimen Type URINE CLEAN CATCH COLOR (U) LIGHT YELLOW TRANSPARENCY CLEAR Specific Taylor (U) 1.024 1.001 - 1.030 U PH 5.5 5.0 - 9.0 LEUKOCYTE ESTERASE NEGATIVE NEGATIVE NITRITES NEGATIVE NEGATIVE PROTEIN (U) 70 (H) <30 MG/DL URINE GLUCOSE 200 (A) NORMAL MG/DL U KETONES NEGATIVE NEGATIVE MG/DL UROBILINOGEN NORMAL NORMAL MG/DL BILIRUBIN (U) NEGATIVE NEGATIVE MG/DL BLOOD NEGATIVE NEGATIVE CULTURE & SENSITIVITY INDICATED? CULTURE IS NOT INDICATED MUCUS RARE /LPF WBC/HPF 1 <6 /HPF RBC/HPF 1 <6 /HPF BACTERIA (URINE) RARE (A) NONE /HPF SQUAMOUS EPITHELIALS RARE /HPF Imaging USV ART REST W ADRIANA LOW EXT Result Date: 12/16/2021 ARTERIAL DOPPLER - ADRIANA BILATERAL LOWER EXTREMITY VASCULAR LAB Pat.Name: TYSON MCNEAL Pat.ID:[id number] .Date: 12/16/2021 Refer.MD: Yasmin Segura Exam Time: 2:52:00 PM Study Type:MARINO VS Arterial Doppler Legs NOHEMY Height: 66in Age: 2 1970,51Y Sex: FEMALE Sonogrphr: Shahla Toscano RDMS, RVT Pat. Stat.:Outpatient Room: ER History / Clinical: Rt foot wounds. L>R severe leg pain. Lt foot cool to touch with weak pulse. PMH- DM. HTN. HLD. neurop. L2, L3 amp. BMI 39. Prior 06/21/21- Rt 1.12, Lt 1.24 Procedures: Doppler waveforms, Digit PPG, Systolic Pressures w/ADRIANA Race: -Congolese ++++++++++++++++++++++++++++++++++++ SUMMARY: ++++++++++++++++++++++++++++++++++++ Joceline ADRIANA Criteria: >1.30 = falsely elevated, calcified vessels; 1.00-1.29 = no signif ischemia at rest ; .80-.99 = mild PAD, asymptomatic; .50-.79 = moderate PAD, claudication; <.50 = severe PAD, rest pain;<.30 = critical PAD, necrosis, poor healing (Digits: DBI >.60 Normal; <.60 Abnormal) (Positive Stress eval: ADRIANA decrease of >.20 or >20% pressure drop) Right leg: Common Femoral waveform is triphasic, high amplitude; Popliteal triphasic, high amplitude; Posterior Tibial triphasic, medium amplitude with ADRIANA 0.959 ; DP/Anterior Tibial triphasic, high amplitude with ADRIANA 0.959 . Digit flow by PPG is not assessed due to wound with bandages. Left leg: Common Femoral waveform is triphasic, high amplitude; Popliteal biphasic, high amplitude; Posterior Tibial biphasic, medium amplitude with ADRIANA 0.973 ; DP/Anterior Tibial biphasic, medium amplitude with ADRIANA 1.08 . Digit flow by PPG is low amplitude with DBI 0.676 . Compared to previous exam done 06/21/2021 , there is no significant change. CONCLUSION: ++++++++++++++++++++++++++++++++++++ FINDINGS: ++++++++++++++++++++++++++++++++++++++++++++++++++++++++++++++++++++++++ MEASUREMENTS: ++++++++++++++++++++++++++++++++++++ DOPPLER Left E COMMERCE ARCHITECT E COMMERCE ARCHITECT PSV 123 cm/s Left Dist Pop A Dist Pop A PSV 94.2 cm/s Left Dist HORSE FARM MANAGER Dist HORSE FARM MANAGER PSV 46.2 cm/s Left Dist DOMINGA Dist DOMINGA PSV 56.5 cm/s Right E COMMERCE ARCHITECT E COMMERCE ARCHITECT PSV 145 cm/s Right Dist Pop A Dist Pop A PSV 107 cm/s Right Dist HORSE FARM MANAGER Dist HORSE FARM MANAGER PSV 56.5 cm/s Right Dist DOMINGA Dist DOMINGA PSV 82.8 cm/s PRESSURES Right Brachial Brach P 148 mmHg Right Ankle DP AnkleDP P 142 mmHg Right Ankle PT AnklePT P 142 mmHg Right ADRIANA PT ADRIANA PT 0.959 Right ADRIANA DP ADRIANA DP 0.959 Left Brachial Brach P 140 mmHg Left Ankle DP AnkleDP P 160 mmHg Left Ankle PT AnklePT P 144 mmHg Left Great Toe GreatToe P 100 mmHg Left ADRIANA PT ADRIANA PT 0.973 Left ADRIANA DP ADRIANA DP 1.08 Left TBI TBI 0.676 Unsigned Hubert Hernandez M.D. XR ABD KUB Result Date: 12/16/2021 HISTORY: no BM in 5 days; n/v TECHNIQUE: Supine image(s) of the abdomen and pelvis were obtained on12/16/2001 at 1949 hours. COMPARISON: None. FINDINGS: LINES OR TUBES: None LUNG BASES: Unremarkable. BOWEL GAS PATTERN: There are no abnormally dilated loops of bowel. Multiple scattered tablets are throughout the abdomen FREE AIR: No free air is detected on this supine exam. CALCIFICATIONS/OTHER: None MUSCULOSKELETAL: The osseous structures are unremarkable. IMPRESSION: 1. No radiographic evidence of bowel obstruction. 2. Mild fecal burden is seen within the colon. Ordered By: WANDA MERCER Interpreted By: Mercy Irving MD, 12/16/2021 8:04 PM XR FOOT LT 3V Result Date: 11/29/2021 EXAMINATION: Left foot EXAM DATE: 11/28/2021 11:48 AM REASON FOR EXAM: pain Foot pain and swelling COMPARISON: 01/17/2021 TECHNIQUE: 3 views FINDINGS: Moderate soft tissue swelling. Hypertrophic bone and mixed sclerotic and lucent changes throughout the midfoot compatible with neuropathic disease, grossly stable. Bone spur suggests chronic plantar fasciitis. Status post second and third digit amputations. No obvious acute erosive changes to indicate acute osteomyelitis. If there is clinical concern for acute osteomyelitis, MRI recommended. No evidence of fracture or dislocation. IMPRESSION: 1. Prior amputations and midfoot neuropathic disease, stable. No definite acute osteomyelitis, but if there is significant clinical concern for osteomyelitis, MRI is recommended. ReferredBy: Interpreted By: Isaías Jones MD, 11/29/2021 8:02 AM XR MULTI TOE RT Result Date: 12/16/2021 IMAGING STUDIES: XR MULTI TOE RT DATE: 12/16/2021 2:26 PM HISTORY: diabetic ulcers to right first and second toes 51-year-old female with diabetic ulcers of the right foot first and second toes. Reported ulcerations along the dorsal aspect of the right first toe and volar aspect of the right second toe and debrided. Additional history of increasing leg pain, left greater than right, with cool feet and weak pulses. COMPARISON: Right foot 01/17/2021. DISCUSSION: AP, oblique, and lateral views ofthe right foot. The posterior foot is excluded on lateral view. Subtle lucency along the distal medial aspect of the great toe near the level of the nailbed and of the medial tip of the second digit.On lateral view, small defect along the plantar aspect of the great toe distal phalanx but stable from 2020 study. No appreciable new fracture or erosion. No appreciable acute periosteal reaction. Maintained great toe interphalangeal joint space and second digit interphalangeal joint spaces. Old healed fracture of the proximal fifth metatarsal. Moderate degenerative changes in the midfoot. Plantar calcaneal spur. Atherosclerotic calcification in the distal leg and in the foot, including the digital arteries. IMPRESSION: No appreciable fracture, dislocation, periosteal reaction, or acute bony erosion. If clinical concern for osteomyelitis, MRI is a more sensitive test. Ordered By: DESIREE MACKENZIE Interpreted By: Angelito Tidwell, 12/16/2021 2:50 PM XR FOOT LT 2V Result Date: 12/16/2021 PROCEDURE: XR FOOT LT 2V HISTORY: Left foot pain. COMPARISON: X-ray right foot TECHNIQUE: AP, lateral and oblique rotated views of the left foot were obtained. FINDINGS: There is no acute fracture orosseous malalignment identified. There are postsurgical changes from prior second and third toe amputations. Degenerative changes of the left midfoot is present. The joint spaces are maintained. There is a moderate plantar calcaneal enthesophyte. Mild soft swelling of the foot. IMPRESSION: 1. No acute osseous abnormality is identified. 2. Status post second and third toe amputations. 3. Mild soft tissue swelling of the left foot. Ordered By: WANDA MERCER Interpreted By: Mercy Irving MD, 12/16/2021 8:06 PM MRI right foot WO 12/17/21 1. Mild osteomyelitis of the distal first phalanx. 2. Mild osteomyelitis of the middle and distal second digit phalanges. 3. No drainable fluid collection or abscess. 4. 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1970 Requested By: DESIREE MACKENZIE Order Number: [id number] Bala MD: Carroll Varela Measurements Intervals [place] Rate: 89 P: 34 AR: 160 QRS: 15 QRSD: 87 T: 102 QT: 364 QTc: 445 Interpretive Statements SINUS RHYTHM MINIMAL VOLTAGE CRITERIA FOR LVH, CONSIDER NORMAL VARIANT [MEETS CRITERIA IN ONE OF: R(aVL), S(V1), R(V5), R(V5/V6)+S(V1)] NONSPECIFIC T-WAVE ABNORMALITY Compared to ECG 07/10/2021 14:18:26 Ventricular premature complex(es) no longer present T-wave abnormality still present Assessment & Plan Diabetic Foot Infection- Right foot with OM Xray toes of left foot as above Blood Cultures (12/16) - NGTD Lactate WNL=1.3 IV Ceftriaxone, IV Vancomycin Pharmacy to dose Vancomycin Neuro vascular checks Pain management monitor for toxicity Wound care Consult MRI Right Foot with mild OM to distal 1st phalanx and middle/distal 2nd phalanges ID consultation appreciated. Agree with abx, but recommend broadening Rocephin to cefepime. Recommended bone sample and then determine abx disposition. Prone to yeast infections w/ abx. Consider prophylactic diflucan. Will consult vascular. Appreciate recommendation. Diabetic foot wound, left 4th digit Continue treatment above. MRI left foot. ?? Diabetes Hold Sitagliptin and Trulicity Continue home basal insulin accu checks achs-s/s protocol A1c=7.7 on 12/08/21 ?? Hx of multiple toe amputation-left foot Hx of Charcot foot-left Increased pain/swelling Xray left foot as above Neuro vascular checks Pain management monitor for toxicity Offered suppository today. Followed with Dr. Hernandez and Dr. Santiago in the past ?? Constipation No BM in 5 days KUB as above Intensify bowel regimen Continue to monitor carefully Ok to use home Linzess if able to bring in Hypokalemia-resolved K 3.3 Replace and monitor Hypomagnesemia-resolved Mg < 0.3 Replace and monitor ?? Hypertension Continue home BP medication Monitor BP and titrate to maitain target goal ?? Hyperlipidemia Continue statin Obesity BMI 32.77 Encourage Lifestyle Changes ?? CODE: FULL CODE POA: Pt does not have a medical POA. Her medical point of contact is her spouse ?? VTE: Heparin subcutaneous ? EDUARDO AGUILLON APRN Cosigned by Soraya Sanz MD at 12/18/2021 3:36 PM CDT * Roxana Parsons RN - 12/18/2021 1:58 AM CDT Problem: Pain Goal: Patient's pain/discomfort [...] and interventions as needed. Outcome: Progressing * Rudi DelgadilloD - 12/17/2021 2:18 PM CDT Vancomycin Pharmacy to Dose Day #2 Ordering Provider: Dr. Urbina Indication: cellulitis AUC goal: 400-600 Individualized trough goal: 7.9-11.9 ACTUAL HT/WT: Ht Readings from Last 1 Encounters: 12/16/21 5' 6 (1.676 m) . Wt Readings from Last 1 Encounters: 12/16/21 82.6 kg (182 lb) Date: WBC: SCR: CRCL: TMAX: LEVEL: 12/16 12.1 1.0 72.9ml/min 98.1 12/17 7.9 0.92 83.6ml/min 98.1 Cultures/Tests: - Blood x 2 (12/16): NG x 1 day Kinetics Assessment: Regimen: 1500 mg IV every 24 hours. Start time: 21:14 on 12/16/2021 Exposure target: AUC24 (range)400-600 mg/L.hr AUC24,ss: 430 mg/L.hr PAUC*: 62 % Ctrough,ss: 9.8 mg/L Pconc*: 3 % Tox.: 6 % Other ABX: - rocephin 12/16 - present A/P: 51 YOF with PMH including hypertension, hyperlipidemia, history of COVID-19 infection in 2019, Diabetes with Neuropathy and charcot foot; hx of multiple toe amputations of left foot ordered vancomycin pharmacy to dose for the indication of diabetic foot infection. Patient received a 1500 mg vancomycin loading dose in the ER. Will continue vancomycin therapy [id number] mg every 24 hours. A trough will be checked with AM labs 12/18. Today, WBCs and SCr decreased. No change to therapy required at this time. Will use results of tomorrow's level to guide future therapy. Will continue to monitor daily. * David Schofield PA-C - 12/17/2021 9:49 AM CDT Hospitalist Daily Progress Note Subjective Ms. Mcneal was seen and examined at bedside this morning. She is overall feeling fair. She does notepain to her right foot. Her wounds have stopped draining. She is still concerned as no bowel movement. She denies any chest pain, shortness of breath, nausea, vomiting, or abdominal pain. Objective Filed Vitals: 12/16/21 1635 12/16/21 1700 12/17/21 0208 12/17/21 0603 BP: (!) 140/92 123/83 116/72 Pulse: 86 83 87 Resp: 18 18 18 Temp: 97.9 ??F (36.6 ??C) 98.1 ??F (36.7 ??C) TempSrc: Oral Oral SpO2: 100% 100% 100% 99% Weight: 89.1 kg (196 lb 6.9 oz) 92.1 kg (203 lb 0.7 oz) Height: Intake/Output 24H Total: Intake/Output Summary (Last 24 hours) at 12/17/2021 0949 Last data filed at 12/16/2021 2146 Gross per 24 hour Intake 300 ml Output -- Net 300 ml Physical Exam: -GENERAL: No acute distress, Well nourished, Well developed -HEAD: Normocephalic, Atraumatic -EYES: Extraocular movements intact; PEERL -LUNGS: Effort normal, Clear to auscultation bilaterally, No wheezes, No crackles, No rhonchi -CVS: Regular rate and rhythm, S1 and S2 normal -ABDOMEN: Soft, Non tender, Non distended, +BS -EXT: No lower extremity edema, FROM -NEURO: Awake, alert, oriented, No gross neuro deficits -SKIN: Skin color, texture, turgor normal. Ulcerative wound to 2nd digit right foot; wound to rightgreat toe Dusky discoloration to distal aspects of digits of left foot; calluses on plantar aspect of left foot Medications ??? amLODIPine 10 mg Oral nightly ??? atorvastatin 20 mg Oral Daily ??? cefTRIAXone 1 g Intravenous Q24H ??? docusate sodium 100 mg Oral Daily ??? heparin (porcine) 5,000 Units Subcutaneous 2 times per day ??? hydroCHLOROthiazide 25 mg Oral QAM ??? hydrOXYzine 25 mg Oral Nightly at bedtime ??? insulin aspart protamine-insulin aspart 65 Units Subcutaneous QAM And ??? insulin aspart protamine-insulin aspart 55 Units Subcutaneous Daily with supper ??? lisinopril 40 mg Oral QPM ??? pantoprazole EC 40 mg Oral Daily ??? vancomycin 1,500 mg Intravenous Q24H ??? vancomycin pharmacy to dose Intravenous See Admin Instructions bisacodyl, bisacodyl EC, cyclobenzaprine, dextrose 10 % bolus, glucagon, glucose, morphine, naLOXone Labs, Imaging, Other Studies Recent Labs Lab 12/16/21 1420 12/17/21 0610 WBC 12.1* 7.9 RBC 4.37 3.99* HGB 13.3 12.2 HCT 39.7 36.2* MCV 90.8 90.7 MCH 30.4 30.6 MCHC 33.5 33.7 PLT 326 292 RDW 12.8 12.8 MPV 10.9 10.9 PERNEU 65.6 54.5 PERLYM 29.9 38.5 PERMON 3.1 5.2 LYMC 3.61 3.06 MONOC 0.37 0.41 EOSC 0.09 0.09 BASOC 0.05 0.03 DTYPE AUTOMATED DIFFERENTIAL AUTOMATED DIFFERENTIAL Recent Labs Lab 12/16/21 1420 12/17/21 0610 NA 137 137 K 3.3* 3.9 CL 104 105 CO2 28.5 29.7 AGAP 4.5* 2.3* BUN 15 17 CR 1.00 0.92 BUNCREATININ 15.0 18.5 GLU 141* 154* CA 9.8 9.2 TP 9.8* 8.2 ALB 3.6 3.1* TBIL 0.4 0.4 ALKP 146* 126 AST 17 14* ALT 23 20 Recent Labs Lab 12/16/21 1834 INR 1.0 PTT 26.5 Recent Labs Lab 12/16/21 1420 12/16/21 1425 TROP -- 7 CPK 185 -- Recent Labs Lab 12/16/21 1407 PROCT <0.05 Results for orders placed or performed during the hospital encounter of 08/11/19 URINALYSIS, AUTO, COMPLETE Result Value Ref Range Specimen Type URINE CLEAN CATCH COLOR (U) LIGHT YELLOW TRANSPARENCY CLEAR Specific Taylor (U) 1.024 1.001 - 1.030 U PH 5.5 5.0 - 9.0 LEUKOCYTE ESTERASE NEGATIVE NEGATIVE NITRITES NEGATIVE NEGATIVE PROTEIN (U) 70 (H) <30 MG/DL URINE GLUCOSE 200 (A) NORMAL MG/DL U KETONES NEGATIVE NEGATIVE MG/DL UROBILINOGEN NORMAL NORMAL MG/DL BILIRUBIN (U) NEGATIVE NEGATIVE MG/DL BLOOD NEGATIVE NEGATIVE CULTURE & SENSITIVITY INDICATED? CULTURE IS NOT INDICATED MUCUS RARE /LPF WBC/HPF 1 <6 /HPF RBC/HPF 1 <6 /HPF BACTERIA (URINE) RARE (A) NONE /HPF SQUAMOUS EPITHELIALS RARE /HPF Imaging USV ART REST W ADRIANA LOW EXT Result Date: 12/16/2021 ARTERIAL DOPPLER - ADRIANA BILATERAL LOWER EXTREMITY VASCULAR LAB Pat.Name: TYSON MCNEAL Pat.ID: [id number] St.Date: 12/16/2021 Refer.MD: Yasmin Segura Exam Time: 2:52:00 PM Study Type:MARINO VS Arterial Doppler Legs NOHEMY Height: 66in Age: 2 1970,51Y Sex: FEMALE Sonogrphr: Shahla Toscano [facility], RVT Pat. Stat.:Outpatient Room: ER History / Clinical: Rt foot wounds. L>R severe leg pain. Lt foot cool to touch with weak pulse. PMH- DM. HTN. HLD. neurop. L2, L3 amp. BMI 39. Prior 06/21/21- Rt 1.12, Lt 1.24 Procedures: Doppler waveforms, Digit PPG, Systolic Pressures w/ADRIANA Race: -Congolese ++++++++++++++++++++++++++++++++++++ SUMMARY: ++++++++++++++++++++++++++++++++++++ Joceline ADRIANA Criteria: >1.30 = falsely elevated, calcified vessels; 1.00-1.29 = no signif ischemia at rest ; .80-.99 = mild PAD, asymptomatic; .50-.79 = moderate PAD, claudication; <.50 = severe PAD, rest pain;<.30 = critical PAD, necrosis, poor healing (Digits: DBI >.60 Normal; <.60 Abnormal) (Positive Stress eval: ADRIANA decrease of >.20 or >20% pressure drop) Right leg: Common Femoral waveform is triphasic, high amplitude; Popliteal triphasic, high amplitude; Posterior Tibial triphasic, medium amplitude with ADRIANA 0.959 ; DP/Anterior Tibial triphasic, high amplitude with ADRIANA 0.959 . Digit flow by PPG is not assessed due to wound with bandages. Left leg: Common Femoral waveform is triphasic, high amplitude; Popliteal biphasic, high amplitude; Posterior Tibial biphasic, medium amplitude with ADRIANA 0.973 ; DP/Anterior Tibial biphasic, medium amplitude with ADRIANA 1.08 . Digit flow by PPG is low amplitude with DBI 0.676 . Compared to previous exam done 06/21/2021 , there is no significant change. CONCLUSION: ++++++++++++++++++++++++++++++++++++ FINDINGS: ++++++++++++++++++++++++++++++++++++++++++++++++++++++++++++++++++++++++ MEASUREMENTS: ++++++++++++++++++++++++++++++++++++ DOPPLER Left E COMMERCE ARCHITECT E COMMERCE ARCHITECT PSV 123 cm/s Left Dist Pop A Dist Pop A PSV 94.2 cm/s Left Dist HORSE FARM MANAGER Dist HORSE FARM MANAGER PSV 46.2 cm/sLeft Dist DOMINGA Dist DOMINGA PSV 56.5 cm/s Right E COMMERCE ARCHITECT E COMMERCE ARCHITECT PSV 145 cm/s Right Dist Pop A Dist Pop A PSV 107cm/s Right Dist HORSE FARM MANAGER Dist HORSE FARM MANAGER PSV 56.5 cm/s Right Dist DOMINGA Dist DOMINGA PSV 82.8 cm/s PRESSURES Right Brachial Brach P 148 mmHg Right Ankle DP AnkleDP P 142 mmHg Right Ankle PT AnklePT P 142 mmHg Right ADRIANA PT ADRIANA PT 0.959 Right ADRIANA DP ADRIANA DP 0.959 Left Brachial Brach P 140 mmHg Left Ankle DP AnkleDP P160 mmHg Left Ankle PT AnklePT P 144 mmHg Left Great Toe GreatToe P 100 mmHg Left ADRIANA PT ADRIANA PT 0.973 Left ADRIANA DP ADRIANA DP 1.08 Left TBI TBI 0.676 Unsigned Hubert Hernandez M.D. XR ABD KUB Result Date: 12/16/2021 HISTORY: no BM in 5 days; n/v TECHNIQUE: Supine image(s) of the abdomen and pelvis were obtained on12/16/2001 at 1949 hours. COMPARISON: None. FINDINGS: LINES OR TUBES: None LUNG BASES: Unremarkable. BOWEL GAS PATTERN: There are no abnormally dilated loops of bowel. Multiple scattered tablets are throughout the abdomen FREE AIR: No free air is detected on this supine exam. CALCIFICATIONS/OTHER: None MUSCULOSKELETAL: The osseous structures are unremarkable. IMPRESSION: 1. No radiographic evidence of bowel obstruction. 2. Mild fecal burden is seen within the colon. Ordered By: WANDA MERCER Interpreted By: Mercy Irving MD, 12/16/2021 8:04 PM XR FOOT LT 3V Result Date: 11/29/2021 EXAMINATION: Left foot EXAM DATE: 11/28/2021 11:48 AM REASON FOR EXAM: pain Foot pain and swelling COMPARISON: 01/17/2021 TECHNIQUE: 3 views FINDINGS: Moderate soft tissue swelling. Hypertrophic bone and mixed sclerotic and lucent changes throughout the midfoot compatible withneuropathic disease, grossly stable. Bone spur suggests chronic plantar fasciitis. Status post second and third digit amputations. No obvious acute erosive changes to indicate acute osteomyelitis. Ifthere is clinical concern for acute osteomyelitis, MRI recommended. No evidence of fracture or dislocation. IMPRESSION: 1. Prior amputations and midfoot neuropathic disease, stable. No definite acute osteomyelitis, but if there is significant clinical concern for osteomyelitis, MRI is recommended. ReferredBy: Interpreted By: Isaías Jones MD, 11/29/2021 8:02 AM XR MULTI TOE RT Result Date: 12/16/2021 IMAGING STUDIES: XR MULTI TOE RT DATE: 12/16/2021 2:26 PM HISTORY: diabetic ulcers to right first and second toes 51-year-old female with diabetic ulcers of the right foot first and second toes. Reported ulcerations along the dorsal aspect of the right first toe and volar aspect of the right secondtoe and debrided. Additional history of increasing leg pain, left greater than right, with cool feet and weak pulses. COMPARISON: Right foot 01/17/2021. DISCUSSION: AP, oblique, and lateral views of the right foot. The posterior foot is excluded on lateral view. Subtle lucency along the distal medial aspect of the great toe near the level of the nailbed and of the medial tip of the second digit. On lateral view, small defect along the plantar aspect of the great toe distal phalanx but stable from 2020 study. No appreciable new fracture or erosion. No appreciable acute periosteal reaction. Maintained great toe interphalangeal joint space and second digit interphalangeal joint spaces. Old healed fracture of the proximal fifth metatarsal. Moderate degenerative changes in the midfoot. Plantarcalcaneal spur. Atherosclerotic calcification in the distal leg and in the foot, including the digital arteries. IMPRESSION: No appreciable fracture, dislocation, periosteal reaction, or acute bony erosion. If clinical concern for osteomyelitis, MRI is a more sensitive test. Ordered By: DESIREE MACKENZIE Interpreted By: Angelito Tidwell, 12/16/2021 2:50 PM XR FOOT LT 2V Result Date: 12/16/2021 PROCEDURE: XR FOOT LT 2V HISTORY: Left foot pain. COMPARISON: X-ray right foot TECHNIQUE: AP, lateral and oblique rotated views of the left foot were obtained. FINDINGS: There is no acute fracture orosseous malalignment identified. There are postsurgical changes from prior second and third toe amputations. Degenerative changes of the left midfoot is present. The joint spaces are maintained. There is a moderate plantar calcaneal enthesophyte. Mild soft swelling of the foot. IMPRESSION: 1. No acute osseous abnormality is identified. 2. Status post second and third toe amputations. 3. Mild soft tissue swelling of the left foot. Ordered By: WANDA MERCER Interpreted By: Mercy Irving MD, 12/16/2021 8:06 PM EKG: Results for orders placed or performed during the hospital encounter of 12/16/21 ECG [address] 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1970 Requested By: DESIREE MACKENZIE Order Number: [id number] Reading MD: Carroll Varela Measurements Intervals [place] Rate: 89 P: 34 AR: 160 QRS: 15 QRSD: 87 T: 102 QT: 364 QTc: 445 Interpretive Statements SINUS RHYTHM MINIMAL VOLTAGE CRITERIA FOR LVH, CONSIDER NORMAL VARIANT [MEETS CRITERIA IN ONE OF: R(aVL), S(V1), R(V5), R(V5/V6)+S(V1)] NONSPECIFIC T-WAVE ABNORMALITY Compared to ECG 07/10/2021 14:18:26 Ventricular premature complex(es) no longer present T-wave abnormality still present Assessment & Plan Diabetic Foot Infection- Right foot Xray toes of left foot as above Blood Cultures (12/16) - NGTD Lactate WNL=1.3 IV Ceftriaxone, IV Vancomycin Pharmacy to dose Vancomycin Neuro vascular checks Pain management monitor for toxicity Wound care Consult MRI Right Foot to r/o underlying osteo -Pending MRI results, then consider Vascular vs ID consult. ?? Diabetes Hold Sitagliptin and Trulicity Continue home basal insulin accu checks achs-s/s protocol A1c=7.7 on 12/08/21 ?? Hx of multiple toe amputation-left foot Hx of Charcot foot-left Increased pain/swelling Xray left foot as above Neuro vascular checks Pain management monitor for toxicity Followed with Dr. Hernandez and Dr. Santiago in the past ?? Constipation NO BM in 5 days KUB as above Intensify bowel regimen Continue to monitor carefully Hypokalemia K 3.3 Replace and monitor Hypomagnesemia Mg < 0.3 Replace and monitor ?? Hypertension Continue home BP medication Monitor BP and titrate to maitain target goal ?? Hyperlipidemia Continue statin Obesity BMI 32.77 Encourage Lifestyle Changes ?? CODE: FULL CODE POA: Pt does not have a medical POA. Her medical point of contact is her spouse ?? VTE: Heparin subcutaneous ? David Schofield PA-C Cosigned by Soraya Sanz MD at 12/17/2021 3:57 PM CDT Associated attestation - Soraya Sanz MD - 12/17/2021 3:57 PM CDT I, SORAYA SANZ MD, participated in the care of this patient today and discussed the plan of carewith KIAN Mcpherson, who shared in this visit. I have reviewed the KIAN's documentation and agree with the findings except as I have documented. This is a 51-year-old female who presented with right diabetic foot infection. Patient states she has pain in her right foot, but admits to worse pain in her left foot with standing or sitting still.On exam, heart is regular without murmur. Lungs are clear to auscultation bilaterally. Right toes bandaged. Left pedal pulse intact. No edema bilateral lower extremities. Right diabetic foot infection -MRI showing evidence of osteomyelitis in the first and second digits. Continue IV Vanco and ceftriaxone. ID consulted for assistance. Consider vascular consultation for possible amputation pending ID recs. SORAYA SANZ MD * Zayda Dukes LCSW - 12/17/2021 8:52 AM CDT 12/17/21 0851 Referral Data Referral Reason Discharge Planning Source of Information Patient Patient Information Primary Caregiver Self Support System Immediate family Baseline ADL's Functional Status Independent Living Arrangements Spouse/significant other Type of Residence Private residence Ambulation Assistance No Active DME Walker;Wheelchair Bathing/Grooming Assistance No Dressing Assistance No Behavior Oriented Communication Talks Current Services Being Provided Other Services Personal care worker This SW met with pt bedside for DCPA. Pt states she resides at home with her . Pt denies anycurrent HHC but states her dtr is her personal care worker paid by the state to assist her. Pt has a walker and wheelchair for home use. Pt uses [facility] for medications. Pt state transportation is not a concern and family will transport home. No immediate needs noted at time of interview. Please consult rn case management should needs arise closer to [place]. * Yasmin Zuniga, RudiD, [facility] - 12/16/2021 8:25 PM CDT Vancomycin Pharmacy to Dose Day #1 Ordering Provider: Dr. Urbina Indication: cellulitis AUC goal: 400-600 Individualized trough goal: 7.9-11.9 ACTUAL HT/WT: Ht Readings from Last 1 Encounters: 12/16/21 5' 6 (1.676 m) . Wt Readings from Last 1 Encounters: 12/16/21 82.6 kg (182 lb) Date: WBC: SCR: CRCL: TMAX: LEVEL: 12/16 12.1 1.0 72.9ml/min 98.1 Cultures/Tests: - 10/20 blood cultures x2: in process Kinetics Assessment: Regimen: 1500 mg IV every 24 hours. Start time: 21:14 on 12/16/2021 Exposure target: AUC24 (range)400-600 mg/L.hr AUC24,ss: 430 mg/L.hr PAUC*: 62 % Ctrough,ss: 9.8 mg/L Pconc*: 3 % Tox.: 6 % Other ABX: - rocephin 12/16 - present Assessment: Pharmacy has been consulted to dose vancomycin for cellulitis. This 51 YOF has a PMH significant for hypertension, hyperlipidemia, history of COVID- 19 infection in 2019, Diabetes with Neuropathy and charcot foot; hx of multiple toe amputations of left foot. The patient is admitted for ulcers on their 2nd toe with increasing leg pain. Plan: The patient received a 20mg/kg vancomycin loading dose in the ER rounded to 1500mg. Per AUC dosing will continue vancomycin at 1500mg every 24 hours. A trough will be checked with AM labs 12/18. Electronically signed by Yasmin Zuniga PharmD, [facility] at 12/16/2021 8:25 PM CDT documented in this encounter H&P Notes * Wanda Mercer APRN - 12/16/2021 5:48 PM CDT Hospitalist History and Physical Patient: Tyson Mcneal Date: 12/16/2021 female, 51-year-old Admit Date: 12/16/2021 Attending: Wanda Maynard MD REASON FOR ADMISSION: Diabetic foot infection HISTORY OF PRESENT ILLNESS: Tyson Mcneal is a 51-year-old female With past medical history significant for Hypertension, hyperlipidemia, history of COVID-19 infection in 2019, Diabetes with Neuropathy and charcot foot; hx of multiple toe amputations of left foot. The pt presents to ER at the instruction of her internet marketing director who is concerned for infection to right foot and R/O early osteo. Upon my assessment, pt is A/O x 3. She states she hs hx of charcot foot ad multiple toe amputation of the left foot. She recently developed wounds to her right toes. Initially she was unaware they were wounds; as she reports she is legally blind and thought it was dry skin. However she developed increased pain and was evaluated per her internet marketing director who observed yellow pus-like drainage. She denies any known trauma to the affected extremity. She reports hx of neuropathy. Denies chills, rigors, andfebrile events. She was highly concerned because she has prior hx of infection to her left foot resulted in amputation of the 2nd and 3rd digits. She also reports increased pain to her left foot. She reports it feels cold to the touch at times and slightly discolored. Pt states her blood sugars have been fairly well controlled. However she does not eat well at home secondary to chronic GI upset, constipation and n/v. Pt states she develops nausea and vomiting in addition to foul smelling reflux of liquid multiple times a month. She often goes multiple days without having a BM. Currently she has not had a BM in over 5 days. Passing Gas. Denies active abdominal pain, n/v/d, melena, hemtochezia and hematemesis. She has been urinating without difficulty; Denies dysuria and hematuria. Pt denies CP, diaphoresis, palpitations, sob, presyncopal or syncopal episiodes. Denies headaches, visual disturbances, dizziness, focal weakness, numbness/tingling, increased confusion and gait abnormality. Pt will be admitted for further evaluation and treatment. I anticipate she will require greater than a 2 midnight stay. Allergy Allergies Allergen Reactions ??? Fish Oil Unknown ??? Amoxicillin Rash ??? Penicillins Rash Medication list Prior to Admission medications Medication Sig Start Date End Date Taking? Authorizing Provider amLODIPine 10 MG tablet Take 1 tablet (10 mg total) by mouth daily. Patient taking differently: Take 10 mg by mouth nightly. 09/24/20 Yes Yasmin Segura II, MD cyclobenzaprine 10 MG tablet Take 1 tablet (10 mg total) by mouth 3 (three) times daily as needed. 08/17/21 Yes CYNTHIA Babb Dulaglutide (TRULICITY) 3 MG/0.5ML Solution Pen-injector Inject 3 mg into the skin weekly. Patient taking differently: Inject 3 mg into the skin weekly. Fridays03/21/21 Yes Yasmin Najera MD Glucose Blood test strip USE 1 STRIP TO CHECK GLUCOSE TWICE DAILY 04/29/21 Yes Yasmin Segura II, MD HUMALOG MIX 75/25 (75-25) 100 UNIT/ML Suspension Inject 60 units ;subcutaneously in the morning and55 in the evening Patient taking differently: Inject into the skin 2 (two) times daily before meals. Inject 65 units subcutaneously in the morning and 55 in the evening 05/16/21 Yes Yasmin Segura II, MD hydroCHLOROthiazide (HYDRODIURIL) 25 MG tablet Take 25 mg by mouth every morning. Yes Doc [facility] Abstract hydrocortisone (HYTONE) 2.5 % ointment Apply 1 Application topically daily as needed. Apply to face10/28/21 Yes GENERICPROVIDER, DEFAULT HISTORY hydrOXYzine (ATARAX) 25 MG tablet Take 25-50 mg by mouth nightly at bedtime. 10/28/21 Yes GENERICPROVIDER, DEFAULT HISTORY linaCLOtide 145 MCG capsule Take 1 capsule (145 mcg total) by mouth every morning before breakfast.Take on empty stomach at least 30 minutes prior to the first meal of the day. Swallow whole. Do notopen capsule or chew. 04/20/21 Yes Yasmin Segura II, MD LISINOPRIL 40 MG tablet Take 1 tablet by mouth once daily Patient taking differently: Take 40 mg by mouth every evening. 05/31/21 Yes Yasmin Segura II, MD ondansetron 4 MG disintegrating tablet Take 1 tablet (4 mg total) by mouth every 8 (eight) hours asneeded for Nausea. 07/11/21 Yes Mendy Mirza MD RELION INSULIN SYRINGE 31G X 15/64 1 ML Misc USE 1 SYRINGE SUBCUTANEOUSLY TWICE DAILY Patient taking differently: 1 Syringe by Other route as needed. 12/06/20 Yes Jarred Rod MD simvastatin (ZOCOR) 40 MG tablet TAKE 1 TABLET BY MOUTH AT BEDTIME Patient taking differently: Take 40 mg by mouth nightly at bedtime. 10/04/21 Yes Yasmin Segura II, MD omeprazole 40 MG capsule Take 1 capsule (40 mg total) by mouth in the morning. 07/14/21 Yasmin Segura II, MD SITagliptin 100 MG tablet Take 1 tablet (100 mg total) by mouth daily. Patient not taking: No sig reported 05/04/21 Yasmin Segura II, MD Past Medical History Past Medical History: Diagnosis Date ??? Arthritis ??? Charcot foot due to diabetes mellitus (CMS/HCC) LEFT FOOT ??? Diabetes mellitus (CMS/HCC) ??? Diabetic neuropathy (CMS/HCC) ??? High cholesterol ??? Hypertension ??? 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 UTI (urinary tract infection) ??? Vision decreased blind right eye, poor vision left eye Past Surgical History: Procedure Laterality Date ??? 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 BLADDER SURGERY ??? EYE SURGERY ??? HYSTERECTOMY 2004, 2020 hysterectomy, cervical surgery ??? RETINAL DETACHMENT SURGERY Right Social History Social History Socioeconomic History ??? Marital status: Tobacco Use ??? Smoking status: Never Smoker ??? Smokeless tobacco: Never Used Vaping Use ??? Vaping Use: Never used Substance and Sexual Activity ??? Alcohol use: Yes Comment: Rarely ??? Drug use: No Other Topics Concern ??? Caffeine Concern No ??? Exercise No ??? Seat Belt Yes Social History Narrative lives with Family History Family History Problem Relation Name Age of Onset ??? Diabetes Mother ??? Hypertension Mother ??? Heart Attack Father ??? Hypertension Father ??? Stroke Sister ??? Hypertension Sister ??? Breast Cancer Other cousin 49 REVIEW OF SYSTEMS: A 14 point review of systems was taken and pertinent positive as per HPI PHYSICAL EXAMINATION: Vital 24 Hour Range Most Recent Value Temperature Temp Min: 98.1 ??F (36.7 ??C) Max: 98.1 ??F (36.7 ??C) 98.1 ??F (36.7 ??C) Pulse Pulse Min: 74 Max: 86 86 Respiratory Resp Min: 18 Max: 18 18 Blood Pressure BP Min: 116/58 Max: 166/102 (!) 140/92 Pulse Oximetry SpO2 Min: 97 % Max: 100 % 100 % O2 No data recorded Vital Most Recent Value First Value Weight 82.6 kg (182 lb) Weight: 82.6 kg (182 lb) Height 5' 6 (167.6 cm) Height: 5' 6 (167.6 cm) BMI (!) 29.39 N/A Physical Exam: -GENERAL: No acute distress, breathing comfortably on room air. -EYES: Extraocular movements intact -ENT: Neck supple, -LUNG: Clear to auscultation bilaterally, No wheezes, No crackles -CVS: Regular rate rhythm, S1 and S2 normal, No murmurs, -ABDOMEN: Soft, nondistended, Nontender, Bowel sounds observed -EXT: no lower Ext edema. -NEURO: Alert, awake, oriented x3, No gross neuro deficit -SKIN: Skin color, texture, turgor normal. Ulcerative wound to 2nd digit right foot; wound to rightgreat toe Dusky discoloration to distal aspects of digits of left foot; calluses on plantar aspect of left foot Intake/Output last 3 shifts: No intake/output data recorded. Labs: Recent Labs Lab 12/16/21 1420 NA 137 K 3.3* CL 104 CO2 28.5 AGAP 4.5* BUN 15 CR 1.00 BUNCREATININ 15.0 GLU 141* CA 9.8 Recent Labs Lab 12/16/21 1420 WBC 12.1* RBC 4.37 HGB 13.3 HCT 39.7 MCV 90.8 MCH 30.4 MCHC 33.5 PLT 326 RDW 12.8 MPV 10.9 Recent Labs Lab 12/16/21 1420 AST 17 ALT 23 No results for input(s): INR, PTT in the last 168 hours. Invalid input(s): ABG arterial blood gases Recent Labs Lab 12/16/21 1420 CPK 185 No results for input(s): PH, PCO2, PO2, [id number], BICARBWB, BASEDEFICIT, BASEEXCESS in the qbrw274 hours. 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1970 Requested By: DESIREE MACKENZIE Order Number: [id number] Reading MD: Measurements Intervals [place] Rate: 89 P: 34 AR: 160 QRS: 15 QRSD: 87 T: 102 QT: 364 QTc: 445 Interpretive Statements SINUS RHYTHM MINIMAL VOLTAGE CRITERIA FOR LVH, CONSIDER NORMAL VARIANT [MEETS CRITERIA IN ONE OF: R(aVL), S(V1), R(V5), R(V5/V6)+S(V1)] NONSPECIFIC T-WAVE ABNORMALITY Compared to ECG 07/10/2021 14:18:26 Ventricular premature complex(es) no longer present T-wave abnormality still present KUB-12/16/21 HISTORY: no BM in 5 days; n/v TECHNIQUE: Supine image(s) of the abdomen and pelvis were obtained on 12/16/2001 at 1949 hours. COMPARISON: None. FINDINGS: LINES OR TUBES: None LUNG BASES: Unremarkable. BOWEL GAS PATTERN: There are no abnormally dilated loops of bowel. Multiple scattered tablets are throughout the abdomen FREE AIR: No free air is detected on this supine exam. CALCIFICATIONS/OTHER: None MUSCULOSKELETAL: The osseous structures are unremarkable. IMPRESSION: 1. No radiographic evidence of bowel obstruction. 2. Mild fecal burden is seen within the colon. Ordered By: WANDA MERCER Interpreted By: Mercy Irving MD, 12/16/2021 8:04 PM IMAGING STUDIES: XR MULTI TOE RT DATE: 12/16/2021 2:26 PM HISTORY: diabetic ulcers to right first and second toes 51-year-old female with diabetic ulcers of the right foot first and second toes. Reported ulcerations along the dorsal aspect of the right first toe and volar aspect of the right second toe and debrided. Additional history of increasing leg pain, left greater than right, with cool feet and weak pulses. COMPARISON: Right foot 01/17/2021. DISCUSSION: AP, oblique, and lateral views of the right foot. The posterior foot is excluded on lateral view. Subtle lucency along the distal medial aspect of the great toe near the level of the nailbed and ofthe medial tip of the second digit. On lateral view, small defect along the plantar aspect of the great toe distal phalanx but stable from 2020 study. No appreciable new fracture or erosion. No appreciable acute periosteal reaction. Maintained great toe interphalangeal joint space and second digit interphalangeal joint spaces. Old healed fracture of the proximal fifth metatarsal. Moderate degenerative changes in the midfoot.Plantar calcaneal spur. Atherosclerotic calcification in the distal leg and in the foot, including the digital arteries. ?? IMPRESSION: No appreciable fracture, dislocation, periosteal reaction, or acute bony erosion. If clinical concern for osteomyelitis, MRI is a more sensitive test. Ordered By: DESIREE MACKENZIE Interpreted By: Angelito Tidwell, 12/16/2021 2:50 PM PROCEDURE: XR FOOT LT 2V-12/16/21 HISTORY: Left foot pain. COMPARISON: X-ray right foot TECHNIQUE: AP, lateral and oblique rotated views of the left foot were obtained. FINDINGS: There is no acute fracture or osseous malalignment identified. There are postsurgical changes from prior second and third toe amputations. Degenerative changes of the left midfoot is present. The joint spaces are maintained. There is a moderate plantar calcaneal enthesophyte. Mild soft swelling of the foot. ?? IMPRESSION: 1. No acute osseous abnormality is identified. 2. Status post second and third toe amputations. 3. Mild soft tissue swelling of the left foot. Ordered By: WANDA MERCER Interpreted By: Mercy Irving MD, 12/16/2021 8:06 PM Assessment & Plan Diabetic foot infection- Right foot Medical Floor Xray toes of left foot as above Blood Cultures x 2 Lactate WNL=1.3 IV Ceftriaxone, IV Vancomycin Pharmacy to dose Vancomycin Neuro vascular checks Pain management monitor for toxicity MRI to r/o underlying osteo Wound care Consult Diabetes Hold Sitagliptin and Trulicity Continue home basal insulin accu checks achs-s/s protocol A1c=7.7 on 12/08/21 Hx of multiple toe amputation-left foot Hx of Charcot foot-left Increased pain/swelling Xray left foot as above Neuro vascular checks Pain management monitor for toxicity Constipation NO BM in 5 days KUB as above Intensify bowel regimen Continue to monitor carefully Hypertension Continue home BP medication Monitor BP and titrate to maitain target goal hyperlipidemia Continue statin CODE: FULL CODE POA: Pt does not have a medical POA. Her medical point of contact is her spouse VTE: Heparin subcutaneous Cosigned by Wanda Maynard MD at 12/16/2021 9:18 PM CDT Associated attestation - Wanda Prado MD - 12/16/2021 9:18 PM CDT I, WANDA URBINA MD, participated in the care of this patient today and discussed the plan of care with KIAN Blue, who shared in this visit. I have reviewed the KIAN's documentation and agree with the findings except as I have documented. I personally spent 15 minutes, caring for this patient. WANDA URBINA MD documented in this encounter Consult Notes * Ezio Bethea DO - 12/24/2021 11:25 AM CDT Adult Infectious Disease Consultation 12/24/21 Patient: Tyson Mcneal Admission date: 12/16/2021 Length of stay: 8 days Admission diagnosis: Hypokalemia [E87.6] Diabetic foot ulcer (CMS/HCC) [E11.621, L97.509] Diabetic foot infection (CMS/HCC) [E11.628, L08.9] Recommendations: - Stop Vancomyicn - Start Daptomycin 6mg/kg every 24H and continue Cefepime 2gram iv q8H (continue until 02/02/2022) - Start Metronidazole 500 mg po tid (this can be discontinued if no anaerobic growth is seen on final culture report, takes 5 days to finalize 12/27 expected report) OPAT recommendations: - Daptomycin 6mg/kg IV q24H - Cefepime 2 gram IV q8H - PICC placement - Weekly lab monitoring with the following: CBC, CMP, CRP and CK level - Home health for PICC line care - Home health for weekly lab draw and PICC removal after completion of IV therapy - Ensure the patient will be followed by a local physician who can monitor his weekly labs - Business And Services Instructor patient on possible adverse effects of ABX and PICC line Impression: # DFI- right foot osteomyelitis, s/p tissue biopsy, no growth on cultures to date. At this time thebest chances of cure would require broad spectrum coverage. I recommend Daptomycin over Vancomycin given less potential nephrotoxicity and easier dosing/monitoring as outpatient. # Reported PCN allergy- pt tolerating cephalosporins Thank you for consulting me on this patient. Please see above recommendations. Ezio Bethea DO Infectious Diseases Current Facility-Administered Medications: ??? acetaminophen (TYLENOL) tablet 650 mg, 650 mg, Oral, Q4H PRN, Eduardo Aguillon, FILTER WORKER, 650 mg at 12/22/21 1227 ??? amLODIPine (NORVASC) tablet 10 mg, 10 mg, Oral, nightly, Roxana Chandler, APNP, 10 mg at 12/23/211999 ??? atorvastatin (LIPITOR) tablet 20 mg, 20 mg, Oral, Daily, Wanda Mercer APRN, 20 mg at 12/24/21 0919 ??? bisacodyl (DULCOLAX) suppository 10 mg, 10 mg, Rectal, Daily PRN, Wanda Mercer FILTER WORKER ??? bisacodyl EC (DULCOLAX) tablet 5 mg, 5 mg, Oral, Daily PRN, Wanda Mercer FILTER WORKER ??? ceFEPIme (MAXIPIME) 2 g in sodium chloride 0.9 % 100 mL IVPB, 2 g, Intravenous, Q8H, Roxana Chandler, APNP, Stopped at 12/24/21 0449 ??? cyclobenzaprine (FLEXERIL) tablet 10 mg, 10 mg, Oral, TID PRN, Wanda Mercer APRN, 10 mg at 12/23/21 0907 ??? dextrose 10 % bolus infusion 125-250 mL, 125-250 mL, Intravenous, PRN, Wanda Mercer FILTER WORKER ??? docusate sodium (COLACE) capsule 100 mg, 100 mg, Oral, BID, David Schofield PA-C, 100 mg at 12/23/211999 ??? glucagon injection 1 mg, 1 mg, Intramuscular, Once PRN, Wanda Mercer FILTER WORKER ??? glucose oral gel 32-64 mL, 15-30 g of dextrose, Oral, PRN, Wanda Mercer FILTER WORKER ??? heparin (porcine) injection 5,000 Units, 5,000 Units, Subcutaneous, 2 times per day, 5,000 Units at 12/24/21 0920 AND [COMPLETED] Moderate Risk for VTE, , , Once, Wanda Mercer APRN ??? normal saline 0.9 % flush 5-10 mL, 5-10 mL, Intracatheter, Q24H, 10 mL at 12/23/212014 ANDnormal saline 0.9 % flush 10 mL, 10 mL, Intracatheter, PRN AND normal saline 0.9 % flush 20 mL,20 mL, Intracatheter, PRN AND heparin lock flush 10 UNIT/ML injection 3 mL, 3 mL, Intracatheter, Q24H, 3 mL at 12/23/212011 AND heparin lock flush 10 UNIT/ML injection 3 mL, 3 mL, Intracatheter, PRN AND Flush all central lines with 10ml syringe, , , Continuous AND Use pulse flush technique with all central lines, , , Continuous AND Change dressing, , , PRN AND Chlorhexidine Gluconate Cloth Bath, , , Daily, ELLEN Justice ??? HYDROcodone-acetaminophen (NORCO) 5-325 MG tablet 1 tablet, 1 tablet, Oral, Q6H PRN, Eduardo Aguillon APRN, 1 tablet at 12/23/21 0907 ??? hydrOXYzine (VISTARIL) capsule 25 mg, 25 mg, Oral, Nightly at bedtime, Wanda Mercer APRN, 25 mg at 12/23/21 195 ??? insulin aspart protamine-insulin aspart (NOVOLOG 70/30) injection 65 Units, 65 Units, Subcutaneous, Daily with breakfast, 65 Units at 12/24/21 1020 AND insulin aspart protamine-insulin aspart(NOVOLOG 70/30) injection 55 Units, 55 Units, Subcutaneous, Daily with supper, ELLEN Justice ??? insulin lispro (HUMALOG) injection 0-16 Units, 0-16 Units, Subcutaneous, TID AC, 6 Units at 12/24/21 1021 AND insulin lispro (HUMALOG) injection 0-8 Units, 0-8 Units, Subcutaneous, Nightly atbedtime, Darah R Dodt, FILTER WORKER, 4 Units at 12/23/212009 ??? lactated ringers infusion, , Intravenous, Continuous, Viet Araujo MD, Stopped at 12/22/21 0732 ??? linaCLOtide (LINZESS) capsule 145 mcg, 145 mcg, Oral, QAM AC, Roxana Chandler, APNP, 145 mcg at 12/23/21 0623 ??? morphine injection 1 mg, 1 mg, Intravenous, Q3H PRN, Wanda Mercer, FILTER WORKER, 1 mg at 12/23/21 0459 ??? naLOXone (NARCAN) injection 0.4 mg, 0.4 mg, Intravenous, PRN, Wanda Mercer FILTER WORKER ??? ondansetron (ZOFRAN) injection 4 mg, 4 mg, Intravenous, Q8H PRN, Sukhwinder Walker MD, 4 mg at 12/22/21 0724 ??? pantoprazole EC (PROTONIX) tablet 40 mg, 40 mg, Oral, Daily, Wanda Mercer, FILTER WORKER, 40 mg at 12/24/21 0920 ??? polyethylene glycol (GLYCOLAX) packet 1 packet, 1 packet, Oral, Daily, David Schofield PA-C, 1 packet at 12/23/21 0806 ??? Senna (SENOKOT) 8.6 MG tablet 8.6 mg, 8.6 mg, Oral, Nightly at bedtime, David Schofield PA-C, 8.6 mg at 12/23/211999 ??? Tdap (BOOSTRIX) injection 0.5 mL, 0.5 mL, Intramuscular, Once, Ousmane Pozo MD ??? vancomycin 2000 mg in IV solution 400 mL IVPB (XELLIA), 2,000 mg, Intravenous, Q48H, ELLEN Justice, Stopped at 12/22/211954 ??? Pharmacy to dose vancomycin, , , Once AND vancomycin pharmacy to dose placeholder, , Intravenous, See Admin Instructions, Wanda Mercer APRN Vitals Filed Vitals: 12/23/21195612/24/21 0017 12/24/21 0422 12/24/21 0900 BP: 126/80 119/74 115/76 116/72 Pulse: 97 88 85 91 Resp: 18 Temp: 98.2 ??F (36.8 ??C) 98.1 ??F (36.7 ??C) 98.2 ??F (36.8 ??C) 98.2 ??F (36.8 ??C) TempSrc: Oral Oral Oral Oral SpO2: 100% 99% 100% Weight: Height: Microbiology: Microbiology Results (last 14 days) Procedure Component Value Units Date/Time CULTURE, ANAEROBIC [[id number]] Collected: 12/22/21714 Order Status: Completed Lab Status: Preliminary result Updated: 12/24/211116 Specimen: WOUND from TOE, RIGHT Spec. Description TOE,RIGHT Special Requests: NO SPECIAL REQUEST Gram Stain Result NO WHITE BLOOD CELLS SEEN Gram Stain Result -- RARE EPITHELIAL CELLS SEEN Gram Stain Result NO ORGANISMS SEEN Culture Result: NO GROWTH 2 DAYS CULTURE, WOUND, W/GRAM STAIN [[id number]] Collected: 12/22/21714 Order Status: Canceled Lab Status: No result Specimen: WOUND from TOE, RIGHT CULTURE, ANAEROBIC [[id number]] Collected: 12/22/21713 Order Status: Completed Lab Status: Preliminary result Updated: 12/24/211116 Specimen: WOUND from TOE, RIGHT Spec. Description TOE,RIGHT Special Requests: NO SPECIAL REQUEST Gram Stain Result NO WHITE BLOOD CELLS SEEN Gram Stain Result -- RARE EPITHELIAL CELLS SEEN Gram Stain Result -- RARE RED BLOOD CELLS SEEN Gram Stain Result NO ORGANISMS SEEN Culture Result: NO GROWTH 2 DAYS CULTURE, WOUND, W/GRAM STAIN [[id number]] Collected: 12/22/21713 Order Status: Canceled Lab Status: No result Specimen: WOUND from TOE, RIGHT CORONAVIRUS (COVID-19) ANTIGEN (In-house [facility]) [[id number]] Collected: 12/22/21545 Order Status: Completed Lab Status: Final result Updated: 12/22/21630 Specimen: NASAL CORONAVIRUS ANTIGEN IA NEGATIVE Comment: NEGATIVE RESULTS SHOULD BE TREATED PRESUMPTIVE [...] AUTHORIZATION (EUA) FOR USE BY AUTHORIZED LABORATORIES. Specimen Type NASAL FIRST TEST NO EMPLOYED IN HEALTHCARE NO SYMPTOMATIC DEFINED BY CDC NO HOSPITALIZATION STATUS YES PATIENT IN ICU NO RESIDENT OF [facility] NO NOT CULTURE, BACTERIA, BLOOD [[id number]] Collected: 12/16/211814 Order Status: Completed Lab Status: Final result Updated: 12/21/21 1140 Specimen: BLOOD Spec. Description BLOOD Special Requests: NO SPECIAL REQUEST Culture Result: NO GROWTH 5 DAYS CULTURE, BACTERIA, BLOOD [[id number]] Collected: 12/16/211814 Order Status: Completed Lab Status: Final result Updated: 12/21/21 1140 Specimen: BLOOD Spec. Description BLOOD Special Requests: NO SPECIAL REQUEST Culture Result: NO GROWTH 5 DAYS Labs: CBC Lab Results Component Value Date/Time WBC 7.4 12/24/2021 03:45 AM Lab Results Component Value Date/Time RBC 3.43 (L) 12/24/2021 03:45 AM Lab Results Component Value Date/Time HGB 10.3 (L) 12/24/2021 03:45 AM Lab Results Component Value Date/Time HCT 30.9 (L) 12/24/2021 03:45 AM BMP Lab Results Component Value Date/Time CO2 25.2 12/24/2021 03:45 AM Lab Results Component Value Date/Time CA 8.7 12/24/2021 03:45 AM Lab Results Component Value Date/Time CL 107 12/24/2021 03:45 AM Lab Results Component Value Date/Time CR 1.05 (H) 12/24/2021 03:45 AM Lab Results Component Value Date/Time GLU 175 (H) 12/24/2021 03:45 AM Lab Results Component Value Date/Time NA 137 12/24/2021 03:45 AM Lab Results Component Value Date/Time K 4.7 12/24/2021 03:45 AM Lab Results Component Value Date/Time BUN 23 (H) 12/24/2021 03:45 AM Imaging: Radiology Results (Last 30 days) 12/23/21 1203 XR CHEST PORTABLE Final result Impression: IMPRESSION: PICC in satisfactory position. No acute infiltrate or consolidation. Referred By: Interpreted By: Angelito Tidwell MD, 12/23/2021 12:00 PM 12/20/21 2101 MRI FOOT LT WO CON Final result Impression: IMPRESSION: 1. No evidence of acute osteomyelitis identified. 2. Advanced midfoot degenerative change. Referred By: Interpreted By: Arley Gastelum MD, 12/20/2021 9:10 PM 12/17/21 1218 MRI FOOT RT WO CON Final result Impression: IMPRESSION: 1. Mild osteomyelitis of the distal first phalanx. 2. Mild osteomyelitis of the middle and distal second digit phalanges. 3. No drainable fluid collection or abscess. 4. Dorsal foot subcutaneous edema. Referred By: Interpreted By: Oj Ward DO, 12/17/2021 12:47 PM 12/16/212000 XR FOOT LT 2V Final result Impression: IMPRESSION: 1. No acute osseous abnormality is identified. 2. Status post second and third toe amputations. 3. Mild soft tissue swelling of the left foot. Ordered By: WANDA MERCER Interpreted By: Mercy Irving MD, 12/16/2021 8:06 PM 12/16/211999 XR ABD KUB Final result Impression: IMPRESSION: 1. No radiographic evidence of bowel obstruction. 2. Mild fecal burden is seen within the colon. Ordered By: WANDA MERCER Interpreted By: Mercy Irving MD, 12/16/2021 8:04 PM 12/16/21 1511 USV ART REST W ADRIANA LOW EXT Final result 12/16/21 1445 XR MULTI TOE RT Final result Impression: IMPRESSION: No appreciable fracture, dislocation, periosteal reaction, or acute bony erosion. If clinical concern for osteomyelitis, MRI is a more sensitive test. Ordered By: DESIREE MACKENZIE Interpreted By: Angelito Tidwell, 12/16/2021 2:50 PM 11/28/21 1148 XR FOOT LT 3V Final result Impression: IMPRESSION: 1. Prior amputations and midfoot neuropathic disease, stable. No definite acute osteomyelitis, but if there is significant clinical concern for osteomyelitis, MRI is recommended. Referred By: Interpreted By: Isaías Jones MD, 11/29/2021 8:02 AM I spent > 35 minutes on this visit reviewing previous notes, laboratory results (listed above), radiographic results (listed above) examining the patient, counseling the patient on the likely diagnosis and documenting the impression/recommendations in the note. * Ousmane Pozo MD - 12/22/2021 10:04 AM CDT ID Consult this is a tele medicine consult from a telemedicine office and patient consented himself/herself/primary attending took the consent. Requesting Provider: TENZIN Mcneal is an 51-year-old female. Assessment: I saw this patient today morning with the help of the nursing staff Patient is eating breakfast without assistance Yesterday ,she was taken to the operating room for a right first and second toe bone biopsy The tissue cultures are pending Pathology is pending She tolerated the procedure very well She is now on IV Vanco and ceftriaxone One history patient is giving Is - night sweats and day sweats In the past every time she got hypoglycemic, she used to have night sweats. However at this time the trend of the sweats is different -she is now having day sweats She is afebrile and hemodynamically stable. Last year colonoscopy was negative -in her own words 12/17/2021 Right foot osteomyelitis Known case of osteomyelitis on the left side in the past status post left second and third toe amputation in the past A case of sarcoid neuropathy Patient is having chills and fevers at home There are subjective symptoms WBC is 12 Patient is on Vanco and ceftriaxone. MRI noted Recommendations: We have a bone sample now. Hopefully she will grow something in the cultures. I will leave her on vancomycin and expand ceftriaxone to cefepime Coming to the day and night sweats, at this time I do not have any other explanation for this nightsweats. Hopefully she will respond to this broad spectrum ID will follow her. Past Medical & Surgical History: Past Medical History: Diagnosis Date ??? Arthritis [...] cervical surgery ??? RETINAL DETACHMENT SURGERY Right Allergies: Allergies Allergen Reactions ??? Fish Oil Unknown ??? Amoxicillin Rash ??? Penicillins Rash Social History: Social History Tobacco Use ??? Smoking status: Never Smoker ??? Smokeless tobacco: Never Used Substance Use Topics ??? Alcohol use: Yes Comment: Rarely Family History: Family History Problem Relation Name Age of Onset ??? Diabetes Mother ??? Hypertension Mother ??? Heart Attack Father ??? Hypertension Father ??? Stroke Sister ??? Hypertension Sister ??? Breast Cancer Other cousin 49 Medications Prior to Admission: No current facility-administered medications on file prior to encounter. Current Outpatient Medications on File Prior to Encounter Medication Sig ??? amLODIPine 10 MG tablet Take 1 tablet (10 mg total) by mouth daily. (Patient taking differently: Take 10 mg by mouth nightly.) ??? cyclobenzaprine 10 MG tablet Take 1 tablet (10 mg total) by mouth 3 (three) times daily as needed. ??? Dulaglutide (TRULICITY) 3 MG/0.5ML Solution Pen-injector Inject 3 mg into the skin weekly. (Patient taking differently: Inject 3 mg into the skin weekly. Fridays) ??? Glucose Blood test strip USE 1 STRIP TO CHECK GLUCOSE TWICE DAILY ??? HUMALOG MIX 75/25 (75-25) 100 UNIT/ML Suspension Inject 60 units ;subcutaneously in the morningand 55 in the evening (Patient taking differently: Inject into the skin 2 (two) times daily before meals. Inject 65 units subcutaneously in the morning and 55 in the evening) ??? hydroCHLOROthiazide (HYDRODIURIL) 25 MG tablet Take 25 mg by mouth every morning. ??? hydrocortisone (HYTONE) 2.5 % ointment Apply 1 Application topically daily as needed. Apply to face ??? hydrOXYzine (ATARAX) 25 MG tablet Take 25-50 mg by mouth nightly at bedtime. ??? linaCLOtide 145 MCG capsule Take 1 capsule (145 mcg total) by mouth every morning before breakfast. Take on empty stomach at least 30 minutes prior to the first meal of the day. Swallow whole. Donot open capsule or chew. ??? LISINOPRIL 40 MG tablet Take 1 tablet by mouth once daily (Patient taking differently: Take 40 mg by mouth every evening.) ??? ondansetron 4 MG disintegrating tablet Take 1 tablet (4 mg total) by mouth every 8 (eight) hours as needed for Nausea. ??? RELION INSULIN SYRINGE 31G X 15/64 1 ML Misc USE 1 SYRINGE SUBCUTANEOUSLY TWICE DAILY (Patienttaking differently: 1 Syringe by Other route as needed.) ??? simvastatin (ZOCOR) 40 MG tablet TAKE 1 TABLET BY MOUTH AT BEDTIME (Patient taking differently:Take 40 mg by mouth nightly at bedtime.) ??? omeprazole 40 MG capsule Take 1 capsule (40 mg total) by mouth in the morning. ??? SITagliptin 100 MG tablet Take 1 tablet (100 mg total) by mouth daily. (Patient not taking: No sig reported) Problem List: Principal Problem: Diabetic foot infection (CMS/[facility]) SNOMED CT(R): INFECTION OF FOOT DUE TO DIABETES MELLITUS REVIEW OF SYMPTOMS... As above GENERAL: no fevers or chills or night sweats, no weight loss ENT: Denies symptoms of allergic rhinitis, congestion and no complaints NIELSON EYES: No complaints of visual acuity changes, no complaints of eye pain, no complaints of icterus. NECK: no complaints of trauma or pain on movement. PULMONARY: no complaints of SOB, cough, hemoptysis or dyspnea. CARDIAC: no complaints of chest pain, palpitations, orthopnea or PND GI: No complaints abd pain, no complaints N/V, no complaints diarrhea, no complaints constipation MUSCULOSKELETAL: no complaints swelling in the right or left leg, no complaints of swelling in the right or left knees, notes that muscular strength is within normal limits. No complaints of arthralgia or myalgia. HEMATOLOGIC: No history of anemia, thrombocytopenia, spontaneous bleeding or eary bruisabiltiy ENDOCRINE: No history of polydipsia/polyuria/heat or cold intolerance; patient denies any abnormal hemoglobin A1c or laboratory history of hyperglycemia. NEUROLOGIC: No history of seizures, CVA, TIA, numbness, tingling, or syncope; Denies neck pain GENITOURINARY- NO symptoms LYMPHATICS - no complaints of generalized adenopathy. DERMATOLOGIC: Denies rashes and has no complaints of other unusual lesions. Filed Vitals: 12/22/21 0732 12/22/21 0745 12/22/21 0800 12/22/21 0900 BP: (!) 82/54 97/64 125/69 127/76 Pulse: 74 77 77 76 Resp: Temp: 98.6 ??F (37 ??C) (P) 98.9 ??F (37.2 ??C) TempSrc: Temporal (P) Temporal SpO2: 100% 100% 95% 95% Weight: Height: PHYSICAL EXAM GENERAL: Patient was alert, awake, and in NAD HENT: Head was a traumatic, neck was supple, tympanic membranes were intact; nares were without erythema or swelling; oral pharynx was without erythema or exudate; the face was without trauma and there was no evidence sinus tenderness EYES - NAHUM, clear conjunctiva, no evidence of scleral icterus NECK: Supple without evidence of meningismus LYMPHATICS: No evidence of cervical adenopathy, no evidence of supraclavicular adenopathy, no evidence of axillary adenopathy PULMONARY: Clear BS in the anterior and the posterior lung noe without rales, rhonchi; BS with equal and there was no dullness to percussion CARDIOVASCULAR: There was a regular rhythm .There were no murmurs appreciated. ABDOMEN: Soft, NT, no HSM, bowel sounds intact and WNL EXTREMITES -ulcers noted on the right foot BACK: no CVA or spinal or paraspinal muscle tenderness SKIN: No evidence suspicious lesions; the skin was warm and dry to touch. NEURO: Alert and oriented to person, place and time; CN's were intact grossly; gait - normal PSYCHIATRIC: No evidence of depression or anxiety. Labs: CBC: Recent Labs Lab 12/22/21 0552 WBC 8.6 RBC 4.01* HGB 12.1 HCT 36.2* MCV 90.3 MCH 30.2 MCHC 33.4 PLT 321 RDW 12.7 MPV 10.9 PERNEU 46.7 PERLYM 46.8 PERMON 4.4 LYMC 4.01 MONOC 0.38 EOSC 0.10 BASOC 0.06 DTYPE AUTOMATED DIFFERENTIAL CMP: SODIUM Date Value Ref Range Status 12/22/2021 136 136 - 145 MMOL/L Final POTASSIUM Date Value Ref Range Status 12/22/2021 4.6 3.5 - 5.1 MMOL/L Final CHLORIDE S/P/B Date Value Ref Range Status 12/22/2021 105 100 - 108 MMOL/L Final CO2 Date Value Ref Range Status 12/22/2021 25.9 21 - 32 MMOL/L Final ANION GAP Date Value Ref Range Status 12/22/2021 5.1 5 - 15 MMOL/L Final BUN Date Value Ref Range Status 12/22/2021 33 (H) 7 - 18 MG/DL Final CREATININE S/P/B Date Value Ref Range Status 12/22/2021 1.29 (H) 0.55 - 1.02 MG/DL Final BUN CREATININE RATIO Date Value Ref Range Status 12/22/2021 25.6 6 - 26 Final eGFR Non-Afr. Amer. Date Value Ref Range Status 05/10/2021 53 (L) >90 ML/MIN/1.73 M2 Final eGFR Afr. Amer. Date Value Ref Range Status 05/10/2021 62 (L) >90 ML/MIN/1.73 M2 Final Comment: NOTE: eGFR is not calculated for patients <18 years of age. This is an estimated GFR (CKD EPI) and should not be used for calculating drug doses. GLUCOSE Date Value Ref Range Status 12/22/2021 170 (H) 70 - 99 MG/DL Final CALCIUM Date Value Ref Range Status 12/22/2021 9.5 8.5 - 10.1 MG/DL Final TOTAL PROTEIN S/P/B Date Value Ref Range Status 12/19/2021 8.0 6.4 - 8.2 G/DL Final ALBUMIN S/P/B Date Value Ref Range Status 12/19/2021 2.9 (L) 3.4 - 5.0 G/DL Final BILIRUBIN TOTAL S/P/B Date Value Ref Range Status 12/19/2021 0.3 0.2 - 1.2 MG/DL Final Comment: THIS ASSAY IS NOT RECOMMENDED FOR PATIENTS UNDERGOING TREATMENT WITH ELTROMBOPAG DUE TO THE POTENTIAL FOR FALSELY ELEVATED RESULTS. ALKALINE PHOSPHATASE S/P/B Date Value Ref Range Status 12/19/2021 120 50 - 136 U/L Final AST Date Value Ref Range Status 12/19/2021 16 15 - 37 U/L Final ALT Date Value Ref Range Status 12/19/2021 22 14 - 55 U/L Final OUSMANE POZO MD 12/22/2021 sdf * Hubert Cheek, DPM - 12/21/2021 1:05 PM CDTAssociated Order(s): IP CONSULT TO PODIATRY Podiatry Consult CC: Osteomyelitis right foot HPI: Podiatry was asked to see Tyson Mcneal, a 51-year-old female, for osteomyelitis right foot. She has toe ulcer which has been present for a few weeks. She is unsure of the cause of the wounds. She has history of toe amputations on the left foot. She currently denies any n/v/f/c/sob. MRI right foot positive for osteomyelitis 1st and 2nd toes. Vascular has seen and reports adequate blood flow for healing. PMH: Past Medical History: Diagnosis Date ??? Arthritis [...] PSH: Past Surgical History: Procedure Laterality Date ??? 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 BLADDER SURGERY ??? EYE SURGERY ??? HYSTERECTOMY 2004, 2019 hysterectomy, cervical surgery ??? RETINAL DETACHMENT SURGERY Right FH: Family History Problem Relation Name Age of Onset ??? Diabetes Mother ??? Hypertension Mother ??? Heart Attack Father ??? Hypertension Father ??? Stroke Sister ??? Hypertension Sister ??? Breast Cancer Other cousin 49 SH: Social History Tobacco Use ??? Smoking status: Never Smoker ??? Smokeless tobacco: Never Used Vaping Use ??? Vaping Use: Never used Substance Use Topics ??? Alcohol use: Yes Comment: Rarely ??? Drug use: No MEDS: Current Facility-Administered Medications: ??? acetaminophen (TYLENOL) tablet 650 mg, 650 mg, Oral, Q4H PRN, Eduardo Aguillon, FILTER WORKER ??? amLODIPine (NORVASC) tablet 10 mg, 10 mg, Oral, nightly, ELLEN Justice, 10 mg at 12/20/212227 ??? atorvastatin (LIPITOR) tablet 20 mg, 20 mg, Oral, Daily, Wanda Mercer APRN, 20 mg at 12/21/21 0913 ??? bisacodyl (DULCOLAX) suppository 10 mg, 10 mg, Rectal, Daily PRN, Wanda Mercer APRN ??? bisacodyl EC (DULCOLAX) tablet 5 mg, 5 mg, Oral, Daily PRN, Wanda Mercer APRN ??? cefTRIAXone (ROCEPHIN) 1 g in sodium chloride 0.9 % 50 mL IVPB, 1 g, Intravenous, Q24H, Ani Mercer APRN, Last Rate: 100 mL/hr at 12/21/21 1241, 1 g at 12/21/21 1241 ??? cyclobenzaprine (FLEXERIL) tablet 10 mg, 10 mg, Oral, TID PRN, Wanda Mercer APRN ??? dextrose 10 % bolus infusion 125-250 mL, 125-250 mL, Intravenous, PRN, Wanda Mercer FILTER WORK[employer] ??? docusate sodium (COLACE) capsule 100 mg, 100 mg, Oral, BID, David Schofield PA-C, 100 mg at 12/20/21 0919 ??? glucagon injection 1 mg, 1 mg, Intramuscular, Once PRN, Wanda Mercer FILTER WORK[employer] ??? glucose oral gel 32-64 mL, 15-30 g of dextrose, Oral, PRN, Crystal M Brown, FILTER WORKER ??? heparin (porcine) injection 5,000 Units, 5,000 Units, Subcutaneous, 2 times per day, 5,000 Units at 12/21/21 0913 AND [COMPLETED] Moderate Risk for VTE, , , Once, Wanda Mercer APRN ??? HYDROcodone-acetaminophen (NORCO) 5-325 MG tablet 1 tablet, 1 tablet, Oral, Q6H PRN, Eduardo Aguillon, FILTER WORKER, 1 tablet at 12/20/21 1749 ??? hydrOXYzine (VISTARIL) capsule 25 mg, 25 mg, Oral, Nightly at bedtime, Wanda Mercer APRN, 25 mg at 12/20/212230 ??? insulin glargine (LANTUS) injection 24 Units, 0.25 Units/kg, Subcutaneous, Nightly at bedtime AND insulin lispro (HUMALOG) injection 8 Units, 0.08 Units/kg, Subcutaneous, TID AC, oRxana Chandler, APNP, 8 Units at 12/21/21 1242 ??? insulin lispro (HUMALOG) injection 0-16 Units, 0-16 Units, Subcutaneous, TID AC, 10 Units at 12/21/21 1242 AND insulin lispro (HUMALOG) injection 0-8 Units, 0-8 Units, Subcutaneous, Nightly at bedtime, Eduardo Aguillon, FILTER WORKER, 8 Units at 12/20/21 2229 ??? linaCLOtide (LINZESS) capsule 145 mcg, 145 mcg, Oral, QAM AC, Roxana Chandler, APNP, 145 mcg at 12/21/21 0626 ??? morphine injection 1 mg, 1 mg, Intravenous, Q3H PRN, Wanda Mercer APRN, 1 mg at 12/19/212157 ??? naLOXone (NARCAN) injection 0.4 mg, 0.4 mg, Intravenous, PRN, Wanda Mercer APRN ??? ondansetron (ZOFRAN) injection 4 mg, 4 mg, Intravenous, Q8H PRN, Sukhwinder Walker MD, 4 mg at 12/20/212024 ??? pantoprazole EC (PROTONIX) tablet 40 mg, 40 mg, Oral, Daily, Wanda Mercer APRN, 40 mg at 12/21/21 0913 ??? polyethylene glycol (GLYCOLAX) packet 1 packet, 1 packet, Oral, Daily, David Schofield PA-C, 1 packet at 12/19/21 0853 ??? Senna (SENOKOT) 8.6 MG tablet 8.6 mg, 8.6 mg, Oral, Nightly at bedtime, David Schofield PA-C, 8.6 mg at 12/18/212032 ??? Tdap (BOOSTRIX) injection 0.5 mL, 0.5 mL, Intramuscular, Once, Ousmane Pozo MD ??? vancomycin 1250 mg in IV solution 250 mL IVPB (XELLIA), 1,250 mg, Intravenous, Q24H, Eduardo Aguillon APRN, Stopped at 12/20/212017 ??? Pharmacy to dose vancomycin, , , Once AND vancomycin pharmacy to dose placeholder, , Intravenous, See Admin Instructions, Wanda Mercer APRN ALL: Review of patient's allergies indicates: Fish oil, Amoxicillin, and Penicillins Vitals Filed Vitals: 12/20/21 1636 12/21/21 0025 12/21/21 0447 12/21/21 0917 BP: 137/84 102/68 109/71 101/76 Pulse: 92 78 84 88 Resp: Temp: 97.9 ??F (36.6 ??C) 98.2 ??F (36.8 ??C) 98.1 ??F (36.7 ??C) 97.9 ??F (36.6 ??C) TempSrc: Oral Oral Oral Oral SpO2: 100% 100% 100% 100% Weight: Height: Labs SODIUM Date Value Ref Range Status 12/21/2021 138 136 - 145 MMOL/L Final POTASSIUM Date Value Ref Range Status 12/21/2021 4.7 3.5 - 5.1 MMOL/L Final CHLORIDE S/P/B Date Value Ref Range Status 12/21/2021 105 100 - 108 MMOL/L Final CO2 Date Value Ref Range Status 12/21/2021 28.6 21 - 32 MMOL/L Final ANION GAP Date Value Ref Range Status 12/21/2021 4.4 (L) 5 - 15 MMOL/L Final BUN Date Value Ref Range Status 12/21/2021 26 (H) 7 - 18 MG/DL Final CREATININE S/P/B Date Value Ref Range Status 12/21/2021 1.21 (H) 0.55 - 1.02 MG/DL Final BUN CREATININE RATIO Date Value Ref Range Status 12/21/2021 21.5 6 - 26 Final eGFR Non-Afr. Amer. Date Value Ref Range Status 05/10/2021 53 (L) >90 ML/MIN/1.73 M2 Final eGFR Afr. Amer. Date Value Ref Range Status 05/10/2021 62 (L) >90 ML/MIN/1.73 M2 Final Comment: NOTE: eGFR is not calculated for patients <18 years of age. This is an estimated GFR (CKD EPI) and should not be used for calculating drug doses. GFR ESTIMATE Date Value Ref Range Status 12/21/2021 55 (L) >90 ML/MIN/1.73 M2 Final Comment: NOTE: eGFR is not calculated for patients <18 years of age. This is an estimated GFR calculation using the new CKD EPI creatinine equation without race and so does not require a correction factor for race. This estimated GFR should not be used for calculating drug doses. GLUCOSE Date Value Ref Range Status 12/21/2021 162 (H) 70 - 99 MG/DL Final CALCIUM Date Value Ref Range Status 12/21/2021 9.8 8.5 - 10.1 MG/DL Final TOTAL PROTEIN S/P/B Date Value Ref Range Status 12/19/2021 8.0 6.4 - 8.2 G/DL Final ALBUMIN S/P/B Date Value Ref Range Status 12/19/2021 2.9 (L) 3.4 - 5.0 G/DL Final BILIRUBIN TOTAL S/P/B Date Value Ref Range Status 12/19/2021 0.3 0.2 - 1.2 MG/DL Final Comment: THIS ASSAY IS NOT RECOMMENDED FOR PATIENTS UNDERGOING TREATMENT WITH ELTROMBOPAG DUE TO THE POTENTIAL FOR FALSELY ELEVATED RESULTS. ALKALINE PHOSPHATASE S/P/B Date Value Ref Range Status 12/19/2021 120 50 - 136 U/L Final AST Date Value Ref Range Status 12/19/2021 16 15 - 37 U/L Final ALT Date Value Ref Range Status 12/19/2021 22 14 - 55 U/L Final ROS Allergy and Immunology ROS: Allergies have been discussed with pt. Neurologically: All CN intact grossly without headache. Respiratory ROS: no cough, shortness of breath, or wheezing Dermatological ROS: ulceration right and left foot Musculoskeletal ROS: hisotry of left toe amputations Exam General appearance: alert, cooperative, no distress Vasc: Dorsalis pedis pulse 0/4 , bilateral, posterior tibial pulse 0/4 , bilateral. Capillary refill time less than 3 seconds to the distal aspect of feet, bilaterally. Feet are dry and xerotic. Pedal hair growth is absent. Feet are cool. Neuro: Protective sensation diminished via 10g monofilament to digits, bilaterally. Derm: Ulceration to dorsal 1st digit right foot and distal 2nd digit right foot Musc: Diffuse pain to right lower extremity. Study Result Narrative & Impression EXAMINATION: MRI FOOT LT WO CON HISTORY: Pain, swelling, fourth digit DATE: 12/20/2021 8:40 PM COMPARISON: X-ray 12/16/2021, MRI 02/07/2017 TECHNIQUE: Multisequence multiplanar unenhanced imaging of the left forefoot. 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 No acute fracture identified. No evidence of acute osteomyelitis. There are advanced degenerative changes of the midfoot, possibly neuropathic change. No tenosynovitis or fluid collection. ?? IMPRESSION: 1. No evidence of acute osteomyelitis identified. 2. Advanced midfoot degenerative change. Referred By: Interpreted By: Arley Gastelum MD, 12/20/2021 9:10 PM Assessment - Osteomyelitis right 1st and 2nd digits - DM with foot ulcer Plan - Patient seen and evaluated. - She will be scheduled for bone biopsy right 1st and 2nd digits. HUBERT CHEEK DPM * Lulu Brarow RN - 12/19/2021 10:34 AM CDTAssociated Order(s): INPATIENT CONSULT TO WOUND CARE Wound consult for wounds to toes on right and left feet. See flowsheet for assessment, pictures, and measurements. Recommendations: Monitor and leave KESHIA for now. Diabetic protein shake daily 12/19/2021 LULU BARROW RN * Hubert Hernandez MD - 12/18/2021 2:48 PM CDTAssociated Order(s): IP CONSULT TO VASCULAR SURGERY Images from the original note were not included. Consult History Tyson Mcneal is a 51-year-old female who presents with toe ulcer This is a 51-year-old female with history of diabetes mellitus, prior toe amputation who presents with osteomyelitis. The patient reports ulceration of the toe which has been present for several weeks. She presented to the hospital with increased foot pain. She currently denies fevers and chills. MRI of the foot was positive for osteomyelitis of the right first and second toes. Past Medical History: Diagnosis Date ??? Arthritis ??? Charcot foot due to diabetes mellitus (CMS/HCC) LEFT FOOT ??? Diabetes mellitus (CMS/HCC) ??? Diabetic neuropathy [...] ??? RETINAL DETACHMENT SURGERY Right Social History Tobacco Use ??? Smoking status: Never Smoker ??? Smokeless tobacco: Never Used Vaping Use ??? Vaping Use: Never used Substance Use Topics ??? Alcohol use: Yes Comment: Rarely ??? Drug use: No Family History Problem Relation Name Age of Onset ??? Diabetes Mother ??? Hypertension Mother ??? Heart Attack Father ??? Hypertension Father ??? Stroke Sister ??? Hypertension Sister ??? Breast Cancer Other cousin 49 ??? amLODIPine 10 mg Oral nightly ??? atorvastatin 20 mg Oral Daily ??? cefTRIAXone 1 g Intravenous Q24H ??? docusate sodium 100 mg Oral BID ??? heparin (porcine) 5,000 Units Subcutaneous 2 times per day ??? hydroCHLOROthiazide 25 mg Oral QAM ??? hydrOXYzine 25 mg Oral Nightly at bedtime ??? insulin aspart protamine-insulin aspart 65 Units Subcutaneous QAM And ??? insulin aspart protamine-insulin aspart 55 Units Subcutaneous Daily with supper ??? lisinopril 40 mg Oral QPM ??? pantoprazole EC 40 mg Oral Daily ??? polyethylene glycol 1 packet Oral Daily ??? Senna 8.6 mg Oral Nightly at bedtime ??? Tdap 0.5 mL Intramuscular Once ??? vancomycin 1,250 mg Intravenous Q24H ??? vancomycin pharmacy to dose Intravenous See Admin Instructions bisacodyl, bisacodyl EC, cyclobenzaprine, dextrose 10 % bolus, glucagon, glucose, morphine, naLOXone Prior to Admission medications Medication Sig Start Date End Date Taking? Authorizing Provider amLODIPine 10 MG tablet Take 1 tablet (10 mg total) by mouth daily. Patient taking differently: Take 10 mg by mouth nightly. 09/24/20 Yes Yasmin Segura II, MD cyclobenzaprine 10 MG tablet Take 1 tablet (10 mg total) by mouth 3 (three) times daily as needed. 08/17/21 Yes CYNTHIA Babb Dulaglutide (TRULICITY) 3 MG/0.5ML Solution Pen-injector Inject 3 mg into the skin weekly. Patient taking differently: Inject 3 mg into the skin weekly. Fridays03/21/21 Yes Yasmin Najera MD Glucose Blood test strip USE 1 STRIP TO CHECK GLUCOSE TWICE DAILY 04/29/21 Yes Yasmin Segura II, MD HUMALOG MIX 75/25 (75-25) 100 UNIT/ML Suspension Inject 60 units ;subcutaneously in the morning and55 in the evening Patient taking differently: Inject into the skin 2 (two) times daily before meals. Inject 65 units subcutaneously in the morning and 55 in the evening 05/16/21 Yes Yasmin Segura II, MD hydroCHLOROthiazide (HYDRODIURIL) 25 MG tablet Take 25 mg by mouth every morning. Yes Doc [facility] hydrocortisone (HYTONE) 2.5 % ointment Apply 1 Application topically daily as needed. Apply to face10/28/21 Yes GENERICPROVIDER, DEFAULT HISTORY hydrOXYzine (ATARAX) 25 MG tablet Take 25-50 mg by mouth nightly at bedtime. 10/28/21 Yes GENERICPROVIDER, DEFAULT HISTORY linaCLOtide 145 MCG capsule Take 1 capsule (145 mcg total) by mouth every morning before breakfast.Take on empty stomach at least 30 minutes prior to the first meal of the day. Swallow whole. Do notopen capsule or chew. 04/20/21 Yes Yasmin Segura II, MD LISINOPRIL 40 MG tablet Take 1 tablet by mouth once daily Patient taking differently: Take 40 mg by mouth every evening. 05/31/21 Yes Yasmin Segura II, MD ondansetron 4 MG disintegrating tablet Take 1 tablet (4 mg total) by mouth every 8 (eight) hours asneeded for Nausea. 07/11/21 Yes Mendy Mirza MD RELION INSULIN SYRINGE 31G X 15/64 1 ML Misc USE 1 SYRINGE SUBCUTANEOUSLY TWICE DAILY Patient taking differently: 1 Syringe by Other route as needed. 12/06/20 Yes Jarred Rod MD simvastatin (ZOCOR) 40 MG tablet TAKE 1 TABLET BY MOUTH AT BEDTIME Patient taking differently: Take 40 mg by mouth nightly at bedtime. 10/04/21 Yes Yasmin Segura II, MD omeprazole 40 MG capsule Take 1 capsule (40 mg total) by mouth in the morning. 07/14/21 Yasmin Segura II, MD SITagliptin 100 MG tablet Take 1 tablet (100 mg total) by mouth daily. Patient not taking: No sig reported 05/04/21 Yasmin Segura II, MD Allergies Allergen Reactions ??? Fish Oil Unknown ??? Amoxicillin Rash ??? Penicillins Rash Review of Systems Constitutional: Negative for chills and fever. HENT: Negative. Respiratory: Negative. Cardiovascular: Negative. Gastrointestinal: Negative. Musculoskeletal: Positive for arthralgias and myalgias. Skin: Positive for color change and wound. Neurological: Positive for numbness. Physical Exam Filed Vitals: 12/17/21 1555 12/17/21 2020 12/18/21 0653 12/18/21 0839 BP: 110/76 126/68 (!) 146/76 129/78 Pulse: 93 91 89 91 Resp: 18 18 18 Temp: 98.2 ??F (36.8 ??C) 98.2 ??F (36.8 ??C) 98.1 ??F (36.7 ??C) 97.9 ??F (36.6 ??C) TempSrc: Oral Oral Oral Oral SpO2: 100% 100% 100% Weight: Height: Physical Exam: Physical Exam HENT: Head: Atraumatic. Mouth/Throat: Pharynx: No posterior oropharyngeal erythema. Cardiovascular: Rate and Rhythm: Normal rate. Pulmonary: Effort: Pulmonary effort is normal. Skin: General: Skin is dry. Neurological: General: No focal deficit present. Mental Status: She is alert. Recent Labs Lab 12/16/21 1420 12/17/21 0610 12/18/21 0530 WBC 12.1* 7.9 7.9 RBC 4.37 3.99* 3.65* HGB 13.3 12.2 11.1* HCT 39.7 36.2* 32.6* MCV 90.8 90.7 89.3 MCH 30.4 30.6 30.4 MCHC 33.5 33.7 34.0 PLT 326 292 287 RDW 12.8 12.8 12.7 MPV 10.9 10.9 10.8 PERNEU 65.6 54.5 53.2 PERLYM 29.9 38.5 39.9 PERMON 3.1 5.2 5.0 LYMC 3.61 3.06 3.13 MONOC 0.37 0.41 0.39 EOSC 0.09 0.09 0.10 BASOC 0.05 0.03 0.04 DTYPE AUTOMATED DIFFERENTIAL AUTOMATED DIFFERENTIAL AUTOMATED DIFFERENTIAL Recent Labs Lab 12/16/21 1420 12/17/21 0610 12/18/21 0530 NA 137 137 139 K 3.3* 3.9 4.0 CL 104 105 107 CO2 28.5 29.7 27.0 AGAP 4.5* 2.3* 5.0 BUN 15 17 19* CR 1.00 0.92 0.99 BUNCREATININ 15.0 18.5 19.2 GLU 141* 154* 131* CA 9.8 9.2 8.9 TP 9.8* 8.2 7.7 ALB 3.6 3.1* 2.8* TBIL 0.4 0.4 0.2 ALKP 146* 126 118 AST 17 14* 13* ALT 23 20 17 Recent Labs Lab 12/16/211833 PTT 26.5 INR 1.0 Imaging: [facility] ART REST W ADRIANA LOW EXT Result Date: 12/17/2021 ARTERIAL DOPPLER - ADRIANA BILATERAL LOWER EXTREMITY VASCULAR LAB Pat.Name: TYSON MCNEAL Pat.ID: [id number] .Date: 12/16/2021 Refer.MD: Yasmin Segura Exam Time: 2:52:00 PM Study Type:MARINO VS Arterial Doppler Legs NOHEMY Height: 66in Age: 2 1970,51Y Sex: FEMALE Sonogrphr: Shahla Toscano RDMS, RVT Pat. Stat.:Outpatient Room: ER History / Clinical:Rt foot wounds. L>R severe leg pain. Lt foot cool to touch with weak pulse. PMH- DM. HTN. HLD. neurop. L2, L3 amp. BMI 39. Prior 06/21/21- Rt 1.12, Lt 1.24 Procedures: Doppler waveforms, Digit PPG, Systolic Pressures w/ADRIANA Race: -Congolese ++++++++++++++++++++++++++++++++++++ SUMMARY: ++++++++++++++++++++++++++++++++++++ Joceline ADRIANA Criteria: >1.30 [...] >20% pressure drop) Right leg: Common Femoral waveformis triphasic, high amplitude; Popliteal triphasic, high amplitude; Posterior Tibial triphasic, medium amplitude with ADRIANA 0.959 ; DP/Anterior Tibial triphasic, high amplitude with ADRIANA 0.959 . Digit david w by PPG is not assessed due to wound with bandages. Left leg: Common Femoral waveform is triphasic, high amplitude; Popliteal biphasic, high amplitude; Posterior Tibial biphasic, medium amplitude with ADRIANA 0.973 ; DP/Anterior Tibial biphasic, medium amplitude with ADRIANA 1.08 . Digit flow by PPG is low amplitude with DBI 0.676 . Compared to previous exam done 06/21/2021 , there is no significant change. CONCLUSION: ADRIANA right leg 0.96, with toe index N/A, in the range of mild ischemia, asymptomatic PAD. ADRIANA left leg 1.08, with toe index 0.676 , in the range of no ischemia. Waveforms suggestive of femoral-popliteal disease. Recommend follow up as symptoms warrant. ++++++++++++++++++++++++++++++++++++ FINDINGS: ++++++++++++++++++++++++++++++++++++ ++++++++++++++++++++++++++++++++++++ MEASUREMENTS: ++++++++++++++++++++++++++++++++++++ DOPPLER Left E COMMERCE ARCHITECT E COMMERCE ARCHITECT PSV 123 cm/s Left Dist Pop A Dist Pop A PSV 94.2 cm/s Left Dist HORSE FARM MANAGER Dist HORSE FARM MANAGER PSV 46.2 cm/s Left Dist DOMINGA Dist DOMINGA PSV 56.5 cm/s Right E COMMERCE ARCHITECT E COMMERCE ARCHITECT PSV 145 cm/s Right Dist Pop A Dist Pop A PSV 107 cm/s Right Dist HORSE FARM MANAGER Dist HORSE FARM MANAGER PSV 56.5 cm/s Right Dist DOMINGA Dist DOMINGA PSV 82.8 cm/s PRESSURES Right Brachial Brach P 148 mmHg Right Ankle DP AnkleDP P 142 mmHg Right Ankle PT AnklePT P 142 mmHg Right ADRIANA PT ADRIANA PT 0.959 Right ADRIANA DP ADRIANA DP 0.959 LeftBrachial Brach P 140 mmHg Left Ankle DP AnkleDP P 160 mmHg Left Ankle PT AnklePT P 144 mmHg Left Great Toe GreatToe P 100 mmHg Left ADRIANA PT ADRIANA PT 0.973 Left ADRIANA DP ADRIANA DP 1.08 Left TBI TBI 0.676 Signed 12/17/2021 10:33 PM Hubert Heranndez M.D. XR ABD KUB Result Date: 12/16/2021 HISTORY: no BM in 5 days; n/v TECHNIQUE: Supine image(s) of the abdomen and pelvis were obtained on12/16/2001 at 1949 hours. COMPARISON: None. FINDINGS: LINES OR TUBES: None LUNG BASES: Unremarkable. BOWEL GAS PATTERN: There are no abnormally dilated loops of bowel. Multiple scattered tablets are throughout the abdomen FREE AIR: No free air is detected on this supine exam. CALCIFICATIONS/OTHER: None MUSCULOSKELETAL: The osseous structures are unremarkable. IMPRESSION: 1. No radiographic evidence of bowel obstruction. 2. Mild fecal burden is seen within the colon. Ordered By: WANDA MERCER Interpreted By: Mercy Irving MD, 12/16/2021 8:04 PM MRI FOOT RT WO CON Result Date: 12/17/2021 EXAMINATION: MRI FOOT RT WO CON HISTORY: First and second digit soft tissue wound/ulcer is. Concernfor osteomyelitis. COMPARISON: None. TECHNIQUE: Multisequence and multiplanar MR images of the right foot without the use of intravenous contrast. FINDINGS: There is a soft tissue wound/ulcer along the distal aspect of the great toe. There is mild osteomyelitis of the distal first phalanx. There isalso a soft tissue wound/ulcer along the distal aspect of the second toe. There is mild osteomyelitis of the middle and distal second digit phalanges. No drainable fluid collection or abscess. No evidence of joint effusion. No other areas of involvement are seen. There are mild degenerative changeswithin the midfoot. There is an old fifth metatarsal fracture. There is dorsal foot subcutaneous edema. IMPRESSION: 1. Mild osteomyelitis of the distal first phalanx. 2. Mild osteomyelitis of the middle and distal second digit phalanges. 3. No drainable fluid collection or abscess. 4. Dorsal foot subcutaneous edema. Referred By: Interpreted By: Oj Ward DO, 12/17/2021 12:47 PM XR MULTI TOE RT Result Date: 12/16/2021 IMAGING STUDIES: XR MULTI TOE RT DATE: 12/16/2021 2:26 PM HISTORY: diabetic ulcers to right first and second toes 51-year-old female with diabetic ulcers of the right foot first and second toes. Reported ulcerations along the dorsal aspect of the right first toe and volar aspect of the right second toe and debrided. Additional history of increasing leg pain, left greater than right, with cool feet and weak pulses. COMPARISON: Right foot 01/17/2021. DISCUSSION: AP, oblique, and lateral views ofthe right foot. The posterior foot is excluded on lateral view. Subtle lucency along the distal medial aspect of the great toe near the level of the nailbed and of the medial tip of the second digit.On lateral view, small defect along the plantar aspect of the great toe distal phalanx but stable from 2020 study. No appreciable new fracture or erosion. No appreciable acute periosteal reaction. Maintained great toe interphalangeal joint space and second digit interphalangeal joint spaces. Old healed fracture of the proximal fifth metatarsal. Moderate degenerative changes in the midfoot. Plantar calcaneal spur. Atherosclerotic calcification in the distal leg and in the foot, including the digital arteries. IMPRESSION: No appreciable fracture, dislocation, periosteal reaction, or acute bony erosion. If clinical concern for osteomyelitis, MRI is a more sensitive test. Ordered By: DESIREE MACKENZIE Interpreted By: Angelito Tidwell, 12/16/2021 2:50 PM XR FOOT LT 2V Result Date: 12/16/2021 PROCEDURE: XR FOOT LT 2V HISTORY: Left foot pain. COMPARISON: X-ray right foot TECHNIQUE: AP, lateral and oblique rotated views of the left foot were obtained. FINDINGS: There is no acute fracture orosseous malalignment identified. There are postsurgical changes from prior second and third toe amputations. Degenerative changes of the left midfoot is present. The joint spaces are maintained. There is a moderate plantar calcaneal enthesophyte. Mild soft swelling of the foot. IMPRESSION: 1. No acute osseous abnormality is identified. 2. Status post second and third toe amputations. 3. Mild soft tissue swelling of the left foot. Ordered By: WANDA MERCER Interpreted By: Mercy Irving MD, 12/16/2021 8:06 PM Assessment Principal Problem: Diabetic foot infection (CMS/HCC) SNOMED CT(R): INFECTION OF FOOT DUE TO DIABETES MELLITUS Plan The patient has osteomyelitis of the toes. Will need bone biopsy. Circulation sufficient for healing. MRI left foot pending. Thank you for consultation. HUBERT HERNANDEZ MD Consulted by Eduardo Aguillon APRN * Ousmane Pozo MD - 12/17/2021 5:24 PM CDTAssociated Order(s): IP CONSULT TO INFECTIOUS DISEASES ID Consult this is a tele medicine consult from a telemedicine office and patient consented himself/herself/primary attending took the consent. Requesting Provider: TENZIN Mcneal is an 51-year-old female. Assessment: Right foot osteomyelitis Known case of osteomyelitis on the left side in the past status post left second and third toe amputation in the past A case of sarcoid neuropathy Patient is having chills and fevers at home There are subjective symptoms WBC is 12 Patient is on Vanco and ceftriaxone. MRI noted Recommendations: She has a mild leukocytosis of 12 and subjective symptoms of chills and or sweats at home She ideally needs to go to the operating room for a bone sample Podiatry is already on board We can leave her on Vanco and ceftriaxone or expand ceftriaxone to cefepime. ID will continue to follow the clinical course. Sugar control. Past Medical & Surgical History: Past Medical History: Diagnosis Date ??? Arthritis ??? Charcot foot due to diabetes mellitus (CMS/HCC) LEFT FOOT ??? Diabetes mellitus (CMS/HCC) ??? Diabetic neuropathy [...] cervical surgery ??? RETINAL DETACHMENT SURGERY Right Allergies: Allergies Allergen Reactions ??? Fish Oil Unknown ??? Amoxicillin Rash ??? Penicillins Rash Social History: Social History Tobacco Use ??? Smoking status: Never Smoker ??? Smokeless tobacco: Never Used Substance Use Topics ??? Alcohol use: Yes Comment: Rarely Family History: Family History Problem Relation Name Age of Onset ??? Diabetes Mother ??? Hypertension Mother ??? Heart Attack Father ??? Hypertension Father ??? Stroke Sister ??? Hypertension Sister ??? Breast Cancer Other cousin 49 Medications Prior to Admission: No current facility-administered medications on file prior to encounter. Current Outpatient Medications on File Prior to Encounter Medication Sig ??? amLODIPine 10 MG tablet Take 1 tablet (10 mg total) by mouth daily. (Patient taking differently: Take 10 mg by mouth nightly.) ??? cyclobenzaprine 10 MG tablet Take 1 tablet (10 mg total) by mouth 3 (three) times daily as needed. ??? Dulaglutide (TRULICITY) 3 MG/0.5ML Solution Pen-injector Inject 3 mg into the skin weekly. (Patient taking differently: Inject 3 mg into the skin weekly. Fridays) ??? Glucose Blood test strip USE 1 STRIP TO CHECK GLUCOSE TWICE DAILY ??? HUMALOG MIX 75/25 (75-25) 100 UNIT/ML Suspension Inject 60 units ;subcutaneously in the morningand 55 in the evening (Patient taking differently: Inject into the skin 2 (two) times daily before meals. Inject 65 units subcutaneously in the morning and 55 in the evening) ??? hydroCHLOROthiazide (HYDRODIURIL) 25 MG tablet Take 25 mg by mouth every morning. ??? hydrocortisone (HYTONE) 2.5 % ointment Apply 1 Application topically daily as needed. Apply to face ??? hydrOXYzine (ATARAX) 25 MG tablet Take 25-50 mg by mouth nightly at bedtime. ??? linaCLOtide 145 MCG capsule Take 1 capsule (145 mcg total) by mouth every morning before breakfast. Take on empty stomach at least 30 minutes prior to the first meal of the day. Swallow whole. Donot open capsule or chew. ??? LISINOPRIL 40 MG tablet Take 1 tablet by mouth once daily (Patient taking differently: Take 40 mg by mouth every evening.) ??? ondansetron 4 MG disintegrating tablet Take 1 tablet (4 mg total) by mouth every 8 (eight) hours as needed for Nausea. ??? RELION INSULIN SYRINGE 31G X 15/64 1 ML Misc USE 1 SYRINGE SUBCUTANEOUSLY TWICE DAILY (Patienttaking differently: 1 Syringe by Other route as needed.) ??? simvastatin (ZOCOR) 40 MG tablet TAKE 1 TABLET BY MOUTH AT BEDTIME (Patient taking differently:Take 40 mg by mouth nightly at bedtime.) ??? omeprazole 40 MG capsule Take 1 capsule (40 mg total) by mouth in the morning. ??? SITagliptin 100 MG tablet Take 1 tablet (100 mg total) by mouth daily. (Patient not taking: No sig reported) Problem List: Principal Problem: Diabetic foot infection (CMS/HCC) SNOMED CT(R): INFECTION OF FOOT DUE TO DIABETES MELLITUS REVIEW OF SYMPTOMS... As above GENERAL: no fevers or chills or night sweats, no weight loss ENT: Denies symptoms of allergic rhinitis, congestion and no complaints NIELSON EYES: No complaints of visual acuity changes, no complaints of eye pain, no complaints of icterus. NECK: no complaints of trauma or pain on movement. PULMONARY: no complaints of SOB, cough, hemoptysis or dyspnea. CARDIAC: no complaints of chest pain, palpitations, orthopnea or PND GI: No complaints abd pain, no complaints N/V, no complaints diarrhea, no complaints constipation MUSCULOSKELETAL: no complaints swelling in the right or left leg, no complaints of swelling in the right or left knees, notes that muscular strength is within normal limits. No complaints of arthralgia or myalgia. HEMATOLOGIC: No history of anemia, thrombocytopenia, spontaneous bleeding or eary bruisabiltiy ENDOCRINE: No history of polydipsia/polyuria/heat or cold intolerance; patient denies any abnormal hemoglobin A1c or laboratory history of hyperglycemia. NEUROLOGIC: No history of seizures, CVA, TIA, numbness, tingling, or syncope; Denies neck pain GENITOURINARY- NO symptoms LYMPHATICS - no complaints of generalized adenopathy. DERMATOLOGIC: Denies rashes and has no complaints of other unusual lesions. Filed Vitals: 12/16/21 1700 12/17/21 0208 12/17/21 0603 12/17/21 1555 BP: (!) 140/92 123/83 116/72 110/76 Pulse: 86 83 87 93 Resp: 18 18 18 18 Temp: 97.9 ??F (36.6 ??C) 98.1 ??F (36.7 ??C) 98.2 ??F (36.8 ??C) TempSrc: Oral Oral Oral SpO2: 100% 100% 99% 100% Weight: 89.1 kg (196 lb 6.9 oz) 92.1 kg (203 lb 0.7 oz) Height: PHYSICAL EXAM GENERAL: Patient was alert, awake, and in NAD HENT: Head was a traumatic, neck was supple, tympanic membranes were intact; nares were without erythema or swelling; oral pharynx was without erythema or exudate; the face was without trauma and there was no evidence sinus tenderness EYES - NAHUM, clear conjunctiva, no evidence of scleral icterus NECK: Supple without evidence of meningismus LYMPHATICS: No evidence of cervical adenopathy, no evidence of supraclavicular adenopathy, no evidence of axillary adenopathy PULMONARY: Clear BS in the anterior and the posterior lung noe without rales, rhonchi; BS with equal and there was no dullness to percussion CARDIOVASCULAR: There was a regular rhythm .There were no murmurs appreciated. ABDOMEN: Soft, NT, no HSM, bowel sounds intact and WNL EXTREMITES -ulcers noted on the right foot BACK: no CVA or spinal or paraspinal muscle tenderness SKIN: No evidence suspicious lesions; the skin was warm and dry to touch. NEURO: Alert and oriented to person, place and time; CN's were intact grossly; gait - normal PSYCHIATRIC: No evidence of depression or anxiety. Labs: CBC: Recent Labs Lab 12/17/21 0610 WBC 7.9 RBC 3.99* HGB 12.2 HCT 36.2* MCV 90.7 MCH 30.6 MCHC 33.7 PLT 292 RDW 12.8 MPV 10.9 PERNEU 54.5 PERLYM 38.5 PERMON 5.2 LYMC 3.06 MONOC 0.41 EOSC 0.09 BASOC 0.03 DTYPE AUTOMATED DIFFERENTIAL CMP: SODIUM Date Value Ref Range Status 12/17/2021 137 136 - 145 MMOL/L Final POTASSIUM Date Value Ref Range Status 12/17/2021 3.9 3.5 - 5.1 MMOL/L Final CHLORIDE S/P/B Date Value Ref Range Status 12/17/2021 105 100 - 108 MMOL/L Final CO2 Date Value Ref Range Status 12/17/2021 29.7 21 - 32 MMOL/L Final ANION GAP Date Value Ref Range Status 12/17/2021 2.3 (L) 5 - 15 MMOL/L Final BUN Date Value Ref Range Status 12/17/2021 17 7 - 18 MG/DL Final CREATININE S/P/B Date Value Ref Range Status 12/17/2021 0.92 0.55 - 1.02 MG/DL Final BUN CREATININE RATIO Date Value Ref Range Status 12/17/2021 18.5 6 - 26 Final eGFR Non-Afr. Amer. Date Value Ref Range Status 05/10/2021 53 (L) >90 ML/MIN/1.73 M2 Final eGFR Afr. Amer. Date Value Ref Range Status 05/10/2021 62 (L) >90 ML/MIN/1.73 M2 Final Comment: NOTE: eGFR is not calculated for patients <18 years of age. This is an estimated GFR (CKD EPI) and should not be used for calculating drug doses. GLUCOSE Date Value Ref Range Status 12/17/2021 154 (H) 70 - 99 MG/DL Final CALCIUM Date Value Ref Range Status 12/17/2021 9.2 8.5 - 10.1 MG/DL Final TOTAL PROTEIN S/P/B Date Value Ref Range Status 12/17/2021 8.2 6.4 - 8.2 G/DL Final ALBUMIN S/P/B Date Value Ref Range Status 12/17/2021 3.1 (L) 3.4 - 5.0 G/DL Final BILIRUBIN TOTAL S/P/B Date Value Ref Range Status 12/17/2021 0.4 0.2 - 1.2 MG/DL Final Comment: THIS ASSAY IS NOT RECOMMENDED FOR PATIENTS UNDERGOING TREATMENT WITH ELTROMBOPAG DUE TO THE POTENTIAL FOR FALSELY ELEVATED RESULTS. ALKALINE PHOSPHATASE S/P/B Date Value Ref Range Status 12/17/2021 126 50 - 136 U/L Final AST Date Value Ref Range Status 12/17/2021 14 (L) 15 - 37 U/L Final ALT Date Value Ref Range Status 12/17/2021 20 14 - 55 U/L Final OUSMANE POZO MD 12/17/2021 sdf documented in this encounter Nursing Notes * Kortney Elias RN - 12/25/2021 6:35 PM CST After breakfast this shift pt had episode of nausea and vomiting. Pt stated she had a weird taste in her mouth and then at breakfast. Pt medicated with prn nausea medication as ordered. Pt states shethinks it is one of the medications she took early in am. Pt later refused to take po flagyl. Explained to pt need for taking the medication and instructed her to try maybe taking it with food. Pt had evening meal and took her po flagyl. 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 * Nicole Hernandez RN - 12/20/2021 7:37 AM CDT IR was consulted for osteomyelitis bone biopsy right foot/toe--Consult and imaging was reviewed by Dr. Diaz and he cannot do biopsy based on too small of a target. Thank you for referral. Shabibr FOWLER RN * Xin Lindsay RN - 12/19/2021 1:24 AM CDT At 0040 the patient c/o diaphoresis. Blood glucose = 53. Two cups of orange juice given. 15 minutesafter she drank the juice I re-checked her blood glucose and it was 93. She said she felt better. Igave her some tami crackers as well. documented in this encounter OR Notes * Op Note - Hubert Cheek DPM - 12/22/2021 7:28 AM CDT Post-Operative Note Surgeon: Dr. HUBERT CHEEK DPM Preoperative Diagnosis: Osteomyelitis 1st and 2nd digits right foot Postoperative Diagnosis: same Procedure: bone biopsy 1st and 2nd digits right foot Pathology: Needle bone biopsy the first and second digit right foot were sent for path and micro Anesthesia: General Hemostasis: None EBL: 1 cc Complications: none Indication for procedure: Patient is a 51-year-old female who initially presented with ulcerations to the first and second digits on the right foot. MRI revealed osteomyelitis to the distal phalanx of the hallux and distal middle and proximal phalanx on the second digit. Due to these concerns, patient has agreed to proceed with bone biopsy first and second digit right foot. Procedure in detail: Patient was brought into the operating room and placed in the operative table in supine position. Following general anesthesia, local anesthesia obtained with the first and second digits utilizing 9 cc of a one-to-one mixture 2% lidocaine plain and 0.5% Marcaine plain. Foot was scrubbed prepped anddraped in usual aseptic manner. Tender was directed first to the distal phalanx of the first digit right foot. A stab incision was made with sharp 15 blade down to the level of bone. Bone biopsy needle was then inserted and bone biopsy was obtained from the distal phalanx of the patient's right hallux. Next a stab incision was made at the distal aspect of the patient's second digit right foot where again bone biopsy needle was utilized to obtain bone biopsy of the distal phalanx from the second digit right foot. Both of thesebone biopsies will be sent for path and micro. At this time the area was flushed with copious amounts of normal sterile saline solution. Skin closure was performed with 3-0 nylon. Band-Aid was applied over the incision sites. Patient seems with tolerated both procedure and anesthesia well. She was transferred to the recovery room with vital signs stable vascular status intact all digits of the right foot. Following repeated posterior monitoring, patient will be readmitted to the floor for continued treatment. HUBERT CHEEK DPM documented in this encounter ED Notes * Alma Jones RN - 12/16/2021 11:18 PM CDT Patient assisted into bed, warm blankets given and lights turned down. Patient has no c/o or requests at this time. Report given to Herminio CARRERA. * Sandy Lima RN - 12/16/2021 5:11 PM CDT Patient concerned about going home, Dr. Mackenzie notified. * Desiree Mackenzie MD - 12/16/2021 2:08 PM CDT Chief Complaint Chief Complaint Patient presents with ??? Foot Pain History of Present Illness This patient is a 51yo female with PMH HTN, DM who presents to the ED for evaluation of lower limb pain. The patient presented to her internet marketing director today for evaluation of ulcerations on the dorsal aspect of the right first toe and volar aspect of the right second toe. These were debrided. She also mentioned that she has been having increasingly severe pain in the lower legs, much moreso on the left. Her internet marketing director noted that the foot was cool to touch, and the pulse was weak. So, she was referredto the ED. She has had no fever/chills, chest pain, or dyspnea. The patient has no history of AFib. Medical History ALLERGIES: Allergies Allergen Reactions ??? Fish Oil Unknown ??? Amoxicillin Rash ??? Penicillins Rash MEDICATIONS: Prior to Admission medications Medication Sig Start Date End Date Taking? Authorizing Provider amLODIPine 10 MG tablet Take 1 tablet (10 mg total) by mouth daily. Patient taking differently: Take 10 mg by mouth nightly. 09/24/20 Yes Yasmin Segura II, MD cyclobenzaprine 10 MG tablet Take 1 tablet (10 mg total) by mouth 3 (three) times daily as needed. 08/17/21 Yes CYNTHIA Babb Dulaglutide (TRULICITY) 3 MG/0.5ML Solution Pen-injector Inject 3 mg into the skin weekly. Patient taking differently: Inject 3 mg into the skin weekly. Fridays03/21/21 Yes Yasmin Najera MD Glucose Blood test strip USE 1 STRIP TO CHECK GLUCOSE TWICE DAILY 04/29/21 Yes Yasmin Segura II, MD HUMALOG MIX 75/25 (75-25) 100 UNIT/ML Suspension Inject 60 units ;subcutaneously in the morning and55 in the evening Patient taking differently: Inject into the skin 2 (two) times daily before meals. Inject 65 units subcutaneously in the morning and 55 in the evening 05/16/21 Yes Yasmin Segura II, MD hydroCHLOROthiazide (HYDRODIURIL) 25 MG tablet Take 25 mg by mouth every morning. Yes Doc [facility] hydrocortisone (HYTONE) 2.5 % ointment Apply 1 Application topically daily as needed. Apply to face10/28/21 Yes GENERICPROVIDER, DEFAULT HISTORY hydrOXYzine (ATARAX) 25 MG tablet Take 25-50 mg by mouth nightly at bedtime. 10/28/21 Yes GENERICPROVIDER, DEFAULT HISTORY linaCLOtide 145 MCG capsule Take 1 capsule (145 mcg total) by mouth every morning before breakfast.Take on empty stomach at least 30 minutes prior to the first meal of the day. Swallow whole. Do notopen capsule or chew. 04/20/21 Yes Yasmin Segura II, MD LISINOPRIL 40 MG tablet Take 1 tablet by mouth once daily Patient taking differently: Take 40 mg by mouth every evening. 05/31/21 Yes Yasmin Segura II, MD ondansetron 4 MG disintegrating tablet Take 1 tablet (4 mg total) by mouth every 8 (eight) hours asneeded for Nausea. 07/11/21 Yes Mendy Mirza MD RELION INSULIN SYRINGE 31G X 15/64 1 ML Misc USE 1 SYRINGE SUBCUTANEOUSLY TWICE DAILY Patient taking differently: 1 Syringe by Other route as needed. 12/06/20 Yes Jarred Rod MD simvastatin (ZOCOR) 40 MG tablet TAKE 1 TABLET BY MOUTH AT BEDTIME Patient taking differently: Take 40 mg by mouth nightly at bedtime. 10/04/21 Yes Yasmin Segura II, MD omeprazole 40 MG capsule Take 1 capsule (40 mg total) by mouth in the morning. 5/26/22 Yasmin Segura II, MD SITagliptin 100 MG tablet Take 1 tablet (100 mg total) by mouth daily. Patient not taking: No sig reported 05/04/21 Yasmin Segura II, MD PAST MEDICAL HISTORY: Past Medical History: Diagnosis Date ??? Arthritis ??? Charcot foot due to diabetes mellitus (CMS/HCC) LEFT FOOT ??? Diabetes mellitus (CMS/HCC) ??? Diabetic neuropathy [...] Tobacco Use ??? Smoking status: Never Smoker ??? Smokeless tobacco: Never Used Vaping Use ??? Vaping Use: Never used Substance Use Topics ??? Alcohol use: Yes Comment: Rarely ??? Drug use: No Review of Systems Review of Systems Constitutional: Negative. HENT: Negative. Respiratory: Negative. Cardiovascular: Negative. Gastrointestinal: Negative. Musculoskeletal: Negative. Skin: Positive for wound. Neurological: Negative. All other systems reviewed and are negative. Physical Exam Filed Vitals: 12/16/21 1635 12/16/21 1700 12/17/21 0208 12/17/21 0603 BP: (!) 140/92 123/83 116/72 Pulse: 86 83 87 Resp: 18 18 18 Temp: 97.9 ??F (36.6 ??C) 98.1 ??F (36.7 ??C) TempSrc: Oral Oral SpO2: 100% 100% 100% 99% Weight: 89.1 kg (196 lb 6.9 oz) 92.1 kg (203 lb 0.7 oz) Height: Physical Exam Vitals and nursing note reviewed. Constitutional: Appearance: Normal appearance. She is well-developed. HENT: Head: Normocephalic and atraumatic. Eyes: Conjunctiva/sclera: Conjunctivae normal. Pupils: Pupils are [...] range of motion and neck supple. Comments: A superficial ulceration is noted on the volar aspect of the right distal second toe. A ~1cm ulceration is noted on the dorsal aspect of the right first toe. The right foot is warm and well perfused. A strong DP is present. The left foot is warm at present. There is no palpable pulse, and capillary refill is delayed. The lateral aspect of the left foot is dusky in appearance. Skin: General: Skin is warm and dry. Capillary Refill: Capillary refill takes less than 2 seconds. Neurological: General: No focal deficit present. Mental Status: She is alert and oriented to person, place, and time. Sensory: No sensory deficit. Motor: No weakness. Diagnostic Studies / Procedures ELECTROCARDIOGRAMS: I have interpreted the patient's EKG timed 15:41 as NSR at rate of 89 bpm. LVH. Nonspecific T wave flattening. No significant change compared with previous. 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: : 1970 Requested By: DESIREE MACKENZIE Order Number: [id number] Reading MD: Carroll Varela Measurements Intervals [place] Rate: 89 P: 34 AR: 160 QRS: 15 QRSD: 87 T: 102 QT: 364 QTc: 445 Interpretive Statements SINUS RHYTHM MINIMAL VOLTAGE CRITERIA FOR LVH, CONSIDER NORMAL VARIANT [MEETS CRITERIA IN ONE OF: R(aVL), S(V1), R(V5), R(V5/V6)+S(V1)] NONSPECIFIC T-WAVE ABNORMALITY Compared to ECG 07/10/2021 14:18:26 Ventricular premature complex(es) no longer present T-wave abnormality still present LABORATORY STUDIES: Results for orders placed or performed during the hospital encounter of 12/16/21 CBC W/DIFF AUTOMATED Result Value Ref Range WBC 12.1 (H) 4.5 - 11.0 x10'3/uL RBC 4.37 4.20 - 5.40 x10'6/uL HGB 13.3 12.0 - 16.0 G/DL HCT 39.7 38.0 - 48.0 % MCV 90.8 81.0 - 99.0 FL MCH 30.4 27.0 - 31.0 PG MCHC 33.5 32.0 - 36.0 G/DL RDW 12.8 11.5 - 14.5 % PLT 326 130 - 400 x10'3/uL MPV 10.9 9.3 - 12.2 FL DIFFERENTIAL TYPE AUTOMATED DIFFERENTIAL NEUTROPHILS 65.6 % LYMPHOCYTES 29.9 % MONOCYTES 3.1 % EOSINOPHILS 0.7 % BASOPHILS 0.4 % IMMATURE GRANS 0.3 % ABS. NEUTROPHILS TOTAL 7.90 (H) 1.80 - 7.70 x10'3/uL ABS. LYMPHOCYTES 3.61 1.00 - 4.80 x10'3/uL ABS. MONOCYTES 0.37 0.24 - 0.86 x10'3/uL ABS. EOSINOPHILS 0.09 0.04 - 0.36 x10'3/uL ABS. BASOPHILS 0.05 0.01 - 0.08 x10'3/uL ABS. IMMATURE GRANULOCYTES 0.04 0.00 - 0.49 x10'3/uL COMPREHENSIVE METABOLIC PANEL Result Value Ref Range GLUCOSE 141 (H) 70 - 99 MG/DL BUN 15 7 - 18 MG/DL CREATININE S/P/B 1.00 0.55 - 1.02 MG/DL SODIUM 137 136 - 145 MMOL/L POTASSIUM 3.3 (L) 3.5 - 5.1 MMOL/L CHLORIDE S/P/B 104 100 - 108 MMOL/L CO2 28.5 21 - 32 MMOL/L CALCIUM 9.8 8.5 - 10.1 MG/DL BILIRUBIN TOTAL S/P/B 0.4 0.2 - 1.2 MG/DL TOTAL PROTEIN S/P/B 9.8 (H) 6.4 - 8.2 G/DL ALBUMIN S/P/B 3.6 3.4 - 5.0 G/DL AST 17 15 - 37 U/L ALT 23 14 - 55 U/L ALKALINE PHOSPHATASE S/P/B 146 (H) 50 - 136 U/L ANION GAP 4.5 (L) 5 - 15 MMOL/L BUN CREATININE RATIO 15.0 6 - 26 A/G RATIO 0.6 (L) 1.0 - 2.0 RATIO GFR ESTIMATE 69 (L) >90 ML/MIN/1.73 M2 PROCALCITONIN (PCT) Result Value Ref Range Procalcitonin <0.05 <0.5 NG/ML SED RATE, ERYTHROCYTE (ESR) Result Value Ref Range ESR 70 (H) <20 MM/HR C-REACTIVE PROTEIN Result Value Ref Range C-REACTIVE PROTEIN 3.03 (H) <0.29 mg/dL MAGNESIUM Result Value Ref Range MAGNESIUM <0.3 (LL) 1.8 - 2.4 MG/DL PHOSPHORUS, INORGANIC PHOSPHATE Result Value Ref Range PHOSPHORUS 4.0 2.5 - 4.9 MG/DL CK (CPK) Result Value Ref Range CPK 185 21 - 215 U/L PROTIME/INR, VENOUS Result Value Ref Range Protime 11.9 10.2 - 12.9 SEC INR 1.0 PARTIAL THROMBOPLASTIN TIME,PTT Result Value Ref Range PTT 26.5 25.1 - 36.5 SEC MAGNESIUM Result Value Ref Range MAGNESIUM 1.6 (L) 1.8 - 2.4 MG/DL TROPONIN, QUANT Result Value Ref Range TROPONIN I HIGH SENSITIVITY 7 <54 ng/L CBC W/DIFF AUTOMATED Result Value Ref Range WBC 7.9 4.5 - 11.0 x10'3/uL RBC 3.99 (L) 4.20 - 5.40 x10'6/uL HGB 12.2 12.0 - 16.0 G/DL HCT 36.2 (L) 38.0 - 48.0 % MCV 90.7 81.0 - 99.0 FL MCH 30.6 27.0 - 31.0 PG MCHC 33.7 32.0 - 36.0 G/DL RDW 12.8 11.5 - 14.5 % PLT 292 130 - 400 x10'3/uL MPV 10.9 9.3 - 12.2 FL DIFFERENTIAL TYPE AUTOMATED DIFFERENTIAL NEUTROPHILS 54.5 % LYMPHOCYTES 38.5 % MONOCYTES 5.2 % EOSINOPHILS 1.1 % BASOPHILS 0.4 % IMMATURE GRANS 0.3 % ABS. NEUTROPHILS TOTAL 4.33 1.80 - 7.70 x10'3/uL ABS. LYMPHOCYTES 3.06 1.00 - 4.80 x10'3/uL ABS. MONOCYTES 0.41 0.24 - 0.86 x10'3/uL ABS. EOSINOPHILS 0.09 0.04 - 0.36 x10'3/uL ABS. BASOPHILS 0.03 0.01 - 0.08 x10'3/uL ABS. IMMATURE GRANULOCYTES 0.02 0.00 - 0.49 x10'3/uL COMPREHENSIVE METABOLIC PANEL Result Value Ref Range GLUCOSE 154 (H) 70 - 99 MG/DL BUN 17 7 - 18 MG/DL CREATININE S/P/B 0.92 0.55 - 1.02 MG/DL SODIUM 137 136 - 145 MMOL/L POTASSIUM 3.9 3.5 - 5.1 MMOL/L CHLORIDE S/P/B 105 100 - 108 MMOL/L CO2 29.7 21 - 32 MMOL/L CALCIUM 9.2 8.5 - 10.1 MG/DL BILIRUBIN TOTAL S/P/B 0.4 0.2 - 1.2 MG/DL TOTAL PROTEIN S/P/B 8.2 6.4 - 8.2 G/DL ALBUMIN S/P/B 3.1 (L) 3.4 - 5.0 G/DL AST 14 (L) 15 - 37 U/L ALT 20 14 - 55 U/L ALKALINE PHOSPHATASE S/P/B 126 50 - 136 U/L ANION GAP 2.3 (L) 5 - 15 MMOL/L BUN CREATININE RATIO 18.5 6 - 26 A/G RATIO 0.6 (L) 1.0 - 2.0 RATIO GFR ESTIMATE 76 (L) >90 ML/MIN/1.73 M2 Bedside Blood Glucose Result Value Ref Range GLUCOSE WHOLE BLOOD 179 (A) 70 - 100 mg/dL Bedside Blood Glucose Result Value Ref Range GLUCOSE WHOLE BLOOD 227 (A) 70 - 100 mg/dL POCT glucose Result Value Ref Range GLUCOSE POC 179 (H) 70 - 99 mg/dL POCT glucose Result Value Ref Range GLUCOSE POC 277 (H) 70 - 99 mg/dL IMAGING STUDIES XR FOOT LT 2V Final Result by User, [id number] (12/16 2009) PROCEDURE: XR FOOT LT 2V HISTORY: Left foot pain. COMPARISON: X-ray right foot TECHNIQUE: AP, lateral and oblique rotated views of the left foot were obtained. FINDINGS: There is no acute fracture or osseous malalignment identified. There are postsurgical changes from prior second and third toe amputations. Degenerative changes of the left midfoot is present. The joint spaces are maintained. There is a moderate plantar calcaneal enthesophyte. Mild soft swelling of the foot. IMPRESSION: 1. No acute osseous abnormality is identified. 2. Status post second and third toe amputations. 3. Mild soft tissue swelling of the left foot. Ordered By: WANDA EMRCER Interpreted By: Mercy Irving MD, 12/16/2021 8:06 PM XR ABD KUB Final Result by User, [id number] (12/16 2006) HISTORY: no BM in 5 days; n/v TECHNIQUE: Supine image(s) of the abdomen and pelvis were obtained on 12/16/2001 at 1949 hours. COMPARISON: None. FINDINGS: LINES OR TUBES: None LUNG BASES: Unremarkable. BOWEL GAS PATTERN: There are no abnormally dilated loops of bowel. Multiple scattered tablets are throughout the abdomen FREE AIR: No free air is detected on this supine exam. CALCIFICATIONS/OTHER: None MUSCULOSKELETAL: The osseous structures are unremarkable. IMPRESSION: 1. No radiographic evidence of bowel obstruction. 2. Mild fecal burden is seen within the colon. Ordered By: WANDA MERCER Interpreted By: Mercy Irving MD, 12/16/2021 8:04 PM USV ART REST W ADRIANA LOW EXT Preliminary Result by User, [id number] (12/16 1921) ARTERIAL DOPPLER - ADRIANA BILATERAL LOWER EXTREMITY VASCULAR LAB Pat.Name: TYSON MCNEAL Pat.ID: [id number] St.Date: 12/16/2021 Refer.MD: Yasmin Segura Exam Time: 2:52:00 PM Study Type:MARINO VS Arterial Doppler Legs NOHEMY Height: 66in Age: 2 1970,51Y Sex: FEMALE Sonogrphr: Shahla Toscano RDKY, RVT Pat. Stat.:Outpatient Room: ER History / Clinical: Rt foot wounds. L>R severe leg pain. Lt foot cool to touch with weak pulse. PMH- DM. HTN. HLD. neurop. L2, L3 amp. BMI 39. Prior 06/21/21- Rt 1.12, Lt 1.24 Procedures: Doppler waveforms, Digit PPG, Systolic Pressures w/ADRIANA Race: -Congolese ++++++++++++++++++++++++++++++++++++ SUMMARY: ++++++++++++++++++++++++++++++++++++ Joceline ADRIANA Criteria: >1.30 [...] Posterior Tibial triphasic, medium amplitude with ADRIANA 0.959 ; DP/Anterior Tibial triphasic, high amplitude with ADRIANA 0.959 . Digit flow by PPG is not assessed due to wound with bandages. Left leg: Common Femoral waveform is triphasic, high amplitude; Popliteal biphasic, high amplitude; Posterior Tibial biphasic, medium amplitude with ADRIANA 0.973 ; DP/Anterior Tibial biphasic, medium amplitude with ADRIANA 1.08 . Digit flow by PPG is low amplitude with DBI 0.676 . Compared to previous exam done 06/21/2021 , there is no significant change. CONCLUSION: ++++++++++++++++++++++++++++++++++++ FINDINGS: ++++++++++++++++++++++++++++++++++++ ++++++++++++++++++++++++++++++++++++ MEASUREMENTS: ++++++++++++++++++++++++++++++++++++ DOPPLER Left E COMMERCE ARCHITECT E COMMERCE ARCHITECT PSV 123 cm/s Left Dist Pop A Dist Pop A PSV 94.2 cm/s Left Dist HORSE FARM MANAGER Dist HORSE FARM MANAGER PSV 46.2 cm/s Left Dist DOMINGA Dist DOMINGA PSV 56.5 cm/s Right E COMMERCE ARCHITECT E COMMERCE ARCHITECT PSV 145 cm/s Right Dist Pop A Dist Pop A PSV 107 cm/s Right Dist HORSE FARM MANAGER Dist HORSE FARM MANAGER PSV 56.5 cm/s Right Dist DOMINGA Dist DOMINGA PSV 82.8 cm/s PRESSURES Right Brachial Brach P 148 mmHg Right Ankle DP AnkleDP P 142 mmHg Right Ankle PT AnklePT P 142 mmHg Right ADRIANA PT ADRIANA PT 0.959 Right ADRIANA DP ADRIANA DP 0.959 Left Brachial Brach P 140 mmHg Left Ankle DP AnkleDP P 160 mmHg Left Ankle PT AnklePT P 144 mmHg Left Great Toe GreatToe P 100 mmHg Left ADRIANA PT ADRIANA PT 0.973 Left ADRIANA DP ADRIANA DP 1.08 Left TBI TBI 0.676 Unsigned Hubert Hernandez M.D. XR MULTI TOE RT Final Result by User, [id number] (12/16 1500) IMAGING STUDIES: XR MULTI TOE RT DATE: 12/16/2021 2:26 PM HISTORY: diabetic ulcers to right first and second toes 51-year-old female with diabetic ulcers of the right foot first and second toes. Reported ulcerations along the dorsal aspect of the right first toe and volar aspect of the right second toe and debrided. Additional history of increasing leg pain, left greater than right, with cool feet and weak pulses. COMPARISON: Right foot 01/17/2021. DISCUSSION: AP, oblique, and lateral views of the right foot. The posterior foot is excluded on lateral view. Subtle lucency along the distal medial aspect of the great toe near the level of the nailbed and of the medial tip of the second digit. On lateral view, small defect along the plantar aspect of the great toe distal phalanx but stable from 2020 study. No appreciable new fracture or erosion. No appreciable acute periosteal reaction. Maintained great toe interphalangeal joint space and second digit interphalangeal joint spaces. Old healed fracture of the proximal fifth metatarsal. Moderate degenerative changes in the midfoot. Plantar calcaneal spur. Atherosclerotic calcification in the distal leg and in the foot, including the digital arteries. IMPRESSION: No appreciable fracture, dislocation, periosteal reaction, or acute bony erosion. If clinical concern for osteomyelitis, MRI is a more sensitive test. Ordered By: DESIREE MACKENZIE Interpreted By: Angelito Tidwell, 12/16/2021 2:50 PM MRI FOOT RT WO CON (Results Pending) ED Course / Medical Decision Making Workup today is remarkable only for mild hypokalemia which was repleted. Arterial studies reveal ADRIANA .96 right, 1.08 left. The patient and her internet marketing director are quite concerned about early osteomyelitis. I could not contact him given that the office was closed. We will start IV antibiotics and plan for admission. Clinical Impression Hypokalemia (Primary) Diabetic foot ulcer ([facility]) Disposition: Admit Desiree Mackenzie MD 12/17/21 0759 * Dhaval Danielle RN - 12/16/2021 2:01 PM CDT Pt ambulatory to ED complaining of left foot being cold and painful x 2 weeks. Pt came from podiatry who is seeing her for her right foot with toe amputations. Denies fevers, chills, nvd. * Dhaval Danielle RN - 12/16/2021 1:48 PM CDT Bed: 04A Expected date: Expected time: Means of arrival: Comments: documented in this encounter Plan of Treatment Upcoming Encounters Date Type Department Care Team (Late st Contact Info) Description 03/14/2024 11:45 AM TEMPLATE INSPECTOR Office Visit [facility]-[address] [phone] Marvin Mckeon MD [facility] [address] [place] [address] 03/20/2024 11:30 AM TEMPLATE INSPECTOR Office Visit [facility] - [place] [address] [place] [phone] Yasmin Segura II, MD [address] [place], [place] [id number] documented as of this encounter Procedures Procedure Name Priority Date/Time Associated Diagnosis Comments POCT GLUCOSE - CORREA DOCKED DEVICE Routine 12/26/2021 11:41 AM TEMPLATE INSPECTOR POCT GLUCOSE - CORREA DOCKED DEVICE Routine 12/26/2021 6:23 AM TEMPLATE INSPECTOR COMPREHENSIVE METABOLIC PANEL Routine 12/26/2021 3:49 AM TEMPLATE INSPECTOR CBC W/DIFF AUTOMATED Routine 12/26/2021 3:49 AM TEMPLATE INSPECTOR LIPASE Routine 12/26/2021 3:49 AM TEMPLATE INSPECTOR POCT GLUCOSE - CORREA DOCKED DEVICE Routine 12/25/2021 8:37 PM TEMPLATE INSPECTOR CULTURE STREP A Routine 12/25/2021 5:15 PM TEMPLATE INSPECTOR POCT GLUCOSE - CORREA DOCKED DEVICE Routine 12/25/2021 3:09 PM TEMPLATE INSPECTOR XR ABD KUB Today 12/25/2021 12:55 PM TEMPLATE INSPECTOR POCT GLUCOSE - CORREA DOCKED DEVICE Routine 12/25/2021 11:57 AM TEMPLATE INSPECTOR POCT GLUCOSE - CORREA DOCKED DEVICE Routine 12/25/2021 7:25 AM TEMPLATE INSPECTOR COMPREHENSIVE METABOLIC PANEL Routine 12/25/2021 3:42 AM TEMPLATE INSPECTOR CBC W/DIFF AUTOMATED Routine 12/25/2021 3:42 AM TEMPLATE INSPECTOR CK (CPK) Routine 12/25/2021 3:42 AM TEMPLATE INSPECTOR POCT GLUCOSE - CORREA DOCKED DEVICE Routine 12/24/2021 10:11 PM CDT POCT GLUCOSE - CORREA DOCKED DEVICE Routine 12/24/2021 5:35 PM CDT POCT GLUCOSE - CORREA DOCKED DEVICE Routine 12/24/2021 11:46 AM CDT POCT GLUCOSE - CORREA DOCKED DEVICE Routine 12/24/2021 6:29 AM CDT BASIC METABOLIC PANEL Routine 12/24/2021 3:45 AM CDT CBC W/DIFF AUTOMATED Routine 12/24/2021 3:45 AM CDT POCT GLUCOSE - CORREA DOCKED DEVICE Routine 12/23/2021 7:54 PM CDT POCT GLUCOSE - CORREA DOCKED DEVICE Routine 12/23/2021 5:17 PM CDT XR CHEST PORTABLE ANABEL 12/23/2021 12: 03 PM CDT POCT GLUCOSE - CORREA DOCKED DEVICE Routine 12/23/2021 12:03 PM CDT POCT GLUCOSE - CORREA DOCKED DEVICE Routine 12/23/2021 6:25 AM CDT BASIC METABOLIC PANEL Routine 12/23/2021 3:55 AM CDT CBC W/DIFF AUTOMATED Routine 12/23/2021 3:55 AM CDT POCT GLUCOSE - CORREA DOCKED DEVICE Routine 12/22/2021 9:01 PM CDT POCT GLUCOSE - CORREA DOCKED DEVICE Routine 12/22/2021 5:07 PM CDT POCT GLUCOSE - CORREA DOCKED DEVICE Routine 12/22/2021 11:11 AM CDT POCT GLUCOSE - CORREA DOCKED DEVICE Routine 12/22/2021 7:37 AM CDT CULTURE, ANAEROBIC Routine 12/22/2021 7: 15 AM CDT CULTURE, ANAEROBIC Routine 12/22/2021 7: 14 AM CDT INCISION AND DRAINAGE ANKLE 12/22/2021 7:00 AM CDT osteomyelitis right foot BASIC METABOLIC PANEL Routine 12/22/2021 5:52 AM CDT CBC W/DIFF AUTOMATED Routine 12/22/2021 5:52 AM CDT CORONAVIRUS (COVID-19) ANTIGEN STAT 12/22/2021 5:46 AM CDT POCT GLUCOSE - CORREA DOCKED DEVICE Routine 12/22/2021 5:01 AM CDT PATHOLOGY Routine 12/22/2021 12:00 AM CDT POCT GLUCOSE - CORREA DOCKED DEVICE Routine 12/21/2021 8:17 PM CDT POCT GLUCOSE - CORREA DOCKED DEVICE Routine 12/21/2021 4:49 PM CDT POCT GLUCOSE - CORREA DOCKED DEVICE Routine 12/21/2021 12:13 PM CDT BASIC METABOLIC PANEL Routine 12/21/2021 7:42 AM CDT CBC W/DIFF AUTOMATED Routine 12/21/2021 7:42 AM CDT MAGNESIUM Routine 12/21/2021 7:42 AM CDT VANCOMYCIN Routine 12/21/2021 7:42 AM CDT POCT GLUCOSE - CORREA DOCKED DEVICE Routine 12/21/2021 6:35 AM CDT POCT GLUCOSE - CORREA DOCKED DEVICE Routine 12/20/2021 9:23 PM CDT MRI FOOT LT WO CON Today 12/20/2021 9: 01 PM CDT POCT GLUCOSE - CORREA DOCKED DEVICE Routine 12/20/2021 4:35 PM CDT POCT GLUCOSE - CORREA DOCKED DEVICE Routine 12/20/2021 11:37 AM CDT BASIC METABOLIC PANEL Routine 12/20/2021 9:40 AM CDT CBC W/DIFF AUTOMATED Routine 12/20/2021 9:40 AM CDT MAGNESIUM Routine 12/20/2021 9:40 AM CDT POCT GLUCOSE - CORREA DOCKED DEVICE Routine 12/20/2021 6:28 AM CDT POCT GLUCOSE - CORREA DOCKED DEVICE Routine 12/20/2021 2:19 AM CDT POCT GLUCOSE - CORREA DOCKED DEVICE Routine 12/19/2021 8:42 PM CDT URINALYSIS WI REFLEX TO CULTURE Routine 12/19/2021 4:46 PM CDT POCT GLUCOSE - CORREA DOCKED DEVICE Routine 12/19/2021 4:33 PM CDT POCT GLUCOSE - CORREA DOCKED DEVICE Routine 12/19/2021 12:38 PM CDT COMPREHENSIVE METABOLIC PANEL Routine 12/19/2021 5:30 AM CDT CBC W/DIFF AUTOMATED Routine 12/19/2021 5:30 AM CDT MAGNESIUM Routine 12/19/2021 5:30 AM CDT VANCOMYCIN Routine 12/19/2021 5:30 AM CDT POCT GLUCOSE - CORREA DOCKED DEVICE Routine 12/19/2021 1:14 AM CDT POCT GLUCOSE - CORREA DOCKED DEVICE Routine 12/19/2021 12:41 AM CDT POCT GLUCOSE - CORREA DOCKED DEVICE Routine 12/18/2021 9:14 PM CDT POCT GLUCOSE - CORREA DOCKED DEVICE Routine 12/18/2021 5:51 PM CDT POCT GLUCOSE - CORREA DOCKED DEVICE Routine 12/18/2021 12:29 PM CDT COMPREHENSIVE METABOLIC PANEL Routine 12/18/2021 5:30 AM CDT CBC W/DIFF AUTOMATED Routine 12/18/2021 5:30 AM CDT VANCOMYCIN Routine 12/18/2021 5:30 AM CDT POCT GLUCOSE - CORREA DOCKED DEVICE Routine 12/17/2021 11:02 PM CDT POCT GLUCOSE - CORREA DOCKED DEVICE Routine 12/17/2021 10:28 PM CDT POCT GLUCOSE - CORREA DOCKED DEVICE Routine 12/17/2021 7:49 PM CDT POCT GLUCOSE - CORREA DOCKED DEVICE Routine 12/17/2021 5:12 PM CDT POCT GLUCOSE - CORREA DOCKED DEVICE Routine 12/17/2021 12:54 PM CDT MRI FOOT RT WO CON STAT 12/17/2021 12 :18 PM CDT COMPREHENSIVE METABOLIC PANEL STAT 12/17/2021 6:10 AM CDT CBC W/DIFF AUTOMATED STAT 12/17/2021 6:10 AM CDT MAGNESIUM Routine 12/17/2021 6:10 AM CDT POCT BEDSIDE BLOOD GLUCOSE STAT 12/16/2021 10:21 PM CDT POCT GLUCOSE - CORREA DOCKED DEVICE Routine 12/16/2021 10:18 PM CDT XR FOOT LT 2V STAT 12/16/2021 8:01 PM CDT XR ABD KUB STAT 12/16/2021 8:00 PM CDT MAGNESIUM STAT 12/16/2021 7:00 PM CDT POCT BEDSIDE BLOOD GLUCOSE STAT 12/16/2021 6:50 PM CDT POCT GLUCOSE - CORREA DOCKED DEVICE Routine 12/16/2021 6:49 PM CDT PARTIAL THROMBOPLASTIN TIME,PTT Routine 12/16/2021 6:34 PM CDT PROTHROMBIN TIME, VENOUS Routine 12/16/2021 6:34 PM CDT THROMBIN TIME, PLASMA Routine 12/16/2021 6:33 PM CDT ANTITHROMBIN III ACTIVITY Routine 12/16/2021 6:33 PM CDT CULTURE, BACTERIA, BLOOD STAT 12/16/2021 6:15 PM CDT CULTURE, BACTERIA, BLOOD STAT 12/16/2021 6:15 PM CDT ECG 12-LEAD Routine 12/16/2021 3:41 PM CDT USV ART REST W ADRIANA LOW EXT STAT 12/16/2021 3:11 PM CDT XR MULTI TOE RT STAT 12/16/2021 2:45 PM CDT SED RATE, ERYTHROCYTE (ESR) Routine 12/16/2021 2:25 PM CDT TROPONIN, QUANT Routine 12/16/2021 2:25 PM CDT COMPREHENSIVE METABOLIC PANEL STAT 12/16/2021 2:20 PM CDT C-REACTIVE PROTEIN Routine 12/16/2021 2: 20 PM CDT CBC W/DIFF AUTOMATED STAT 12/16/2021 2:20 PM CDT PHOSPHORUS, INORGANIC PHOSPHATE Routine 12/16/2021 2:20 PM CDT MAGNESIUM Routine 12/16/2021 2:20 PM CDT CK (CPK) Routine 12/16/2021 2:20 PM CDT PROCALCITONIN (PCT) STAT 12/16/2021 2 :07 PM CDT documented in this encounter Results * (ABNORMAL) POCT glucose (12/26/2021 11:41 AM TEMPLATE INSPECTOR) GLUCOSE POC 143(H) 70 - 99 mg/dL 12/26/2021 11:48 AM TEMPLATE INSPECTOR [facility] 12/26/2021 11:4 1 AM TEMPLATE INSPECTOR Roxana Chandler APNP POCT ORDERABLES - DEVICE Final Result Performing Organization Address [facility]/ZIP Co de Phone Number [facility] [address] [place] [address], * POCT glucose (12/26/2021 6:23 AM TEMPLATE INSPECTOR) GLUCOSE POC 83 70 - 99 mg/dL 12/26/2021 6:34 AM TEMPLATE INSPECTOR [facility] 12/26/2021 6:23 AM TEMPLATE INSPECTOR us Roxana Chandler ELLEN POCT ORDERABLES - DEVICE Final Result Performing Organization Address [facility] Co de Phone Number [facility] [address] [place] [address], [place] [phone] * LIPASE (12/26/2021 3:49 AM TEMPLATE INSPECTOR) LIPASE 143 73 - 393 UNITS/L 12/26/2021 7:59 AM TEMPLATE INSPECTOR [facility] 12/26/2021 3:49 AM TEMPLATE INSPECTOR us Roxana Chandler ELLEN LABORATORY Final Res ult Performing Organization Address City/[facility] Co de Phone Number [facility] [address] [place] [address], [place] [phone] * (ABNORMAL) CBC W/DIFF AUTOMATED (12/26/2021 3:49 AM TEMPLATE INSPECTOR) WBC 10.2 4.5 - 11.0 x10'3/uL 12/26/2021 3:56 AM TEMPLATE INSPECTOR [facility] RBC 3.31(L) 4.20 - 5.40 x10'6/uL 12/26/2021 3:56 AM TEMPLATE INSPECTOR [facility] HGB 10.0(L) 12.0 - 16.0 G/DL 12/26/2021 3:56 AM [facility] HCT 29.7(L) 38.0 - 48.0 % 12/26/2021 3:56 AM [facility] MCV 89.7 81.0 - 99.0 FL 12/26/2021 3:56 AM [facility] MCH 30.2 27.0 - 31.0 PG 12/26/2021 3:56 AM [facility] MCHC 33.7 32.0 - 36.0 G/DL 12/26/2021 3:56 AM [facility] RDW 13.1 11.5 - 14.5 % 12/26/2021 3:56 AM [facility] PLT 240 130 - 400 x10'3/uL 12/26/2021 3:56 AM [facility] MPV 10.8 9.3 - 12.2 FL 12/26/2021 3:56 AM [facility] DIFFERENTIAL TYPE AUTOMATED DIFFERENTIAL 12/26/2021 3:56 AM [facility] NEUTROPHILS % 60.8 % 12/26/2021 3:56 AM [facility] LYMPHOCYTES % 30.5 % 12/26/2021 3:56 AM [facility] MONOCYTES % 5.9 % 12/26/2021 3:56 AM [facility] EOSINOPHILS 1.9 % 12/26/2021 3:56 AM [facility] BASOPHILS 0.5 % 12/26/2021 3:56 AM [facility] IMMATURE GRANS % 0.4 % 12/27/19 3:56 AM [facility] ABS. NEUTROPHILS TOTAL 6.21 1.80 - 7.70 x10'3/uL 12/26/2021 3:56 AM TEMPLATE INSPECTOR [facility] ABS. LYMPHOCYTES 3.11 1.00 - 4.80 x10'3/uL 12/26/2021 3:56 AM TEMPLATE INSPECTOR [facility] ABS. MONOCYTES 0.60 0.24 - 0.86 x10'3/uL 12/26/2021 3:56 AM TEMPLATE INSPECTOR [facility] ABS. EOSINOPHILS 0.19 0.04 - 0.36 x10'3/uL 12/26/2021 3:56 AM TEMPLATE INSPECTOR [facility] ABS. BASOPHILS 0.05 0.01 - 0.08 x10'3/uL 12/26/2021 3:56 AM TEMPLATE INSPECTOR [facility] ABS. IMMATURE GRANULOCYTES 0.04 0.00 - 0.49 x10'3/uL 12/26/2021 3:56 AM TEMPLATE INSPECTOR [facility] 12/26/2021 3:49 AM TEMPLATE INSPECTOR Roxana BROOKENP LABORATORY Final Res ult [facility] [address] [id number], [place] [phone] * (ABNORMAL) COMPREHENSIVE METABOLIC PANEL (12/26/2021 3:49 AM TEMPLATE INSPECTOR) [facility] GLUCOSE 89 70 - 99 MG/DL 12/26/2021 4:18 AM TEMPLATE INSPECTOR [facility] BUN 26(H) 7 - 18 MG/DL 12/26/2021 4:18 AM [facility] CREATININE S/P/B 1.08(H) 0.55 - 1.02 MG/DL 12/26/2021 4:18 AM TEMPLATE INSPECTOR [facility] SODIUM S/P/B 138 136 - 145 MMOL/L 12/26/2021 4:18 AM [facility] POTASSIUM S/P/B 4.3 3.5 - 5.1 MMOL/L 12/26/2021 4:18 AM [facility] CHLORIDE S/P/B 108 100 - 108 MMOL/L 12/26/2021 4:18 AM [facility] CO2 24.8 21 - 32 MMOL/L 12/26/2021 4:18 AM [facility] CALCIUM S/P/B 9.1 8.5 - 10.1 MG/DL 12/26/2021 4:18 AM [facility] BILIRUBIN TOTAL S/P/B 0.2 0.2 - 1.2 MG/DL 12/26/2021 4:18 AM [facility] Comment: THIS ASSAY IS NOT RECOMMENDED FOR PATIENTS UNDERGOING TREATMENT WITH ELTROMBOPAG DUE TO THE POTENTIAL FOR FALSELY ELEVATED RESULTS. TOTAL PROTEIN S/P/B 7.9 6.4 - 8.2 G/DL 12/26/2021 4:18 AM [facility] ALBUMIN S/P/B 2.9(L) 3.4 - 5.0 G/DL 12/26/2021 4:18 AM [facility] AST 44(H) 15 - 37 U/L 12/26/2021 4:18 AM [facility] ALT 82(H) 14 - 55 U/L 12/26/2021 4:18 AM [facility] ALKALINE PHOSPHATASE S/P/B 169(H) 50 - 136 U/L 12/26/2021 4:18 AM [facility] ANION GAP 5.2 5 - 15 MMOL/L 12/26/2021 4:18 AM [facility] BUN CREATININE RATIO 24.1 6 - 26 12/26/2021 4:18 AM TEMPLATE INSPECTOR [facility] A/G RATIO 0.6(L) 1.0 - 2.0 RATIO 12/26/2021 4:18 AM [facility] GFR ESTIMATE 63(L) >90 ML/MIN/1.7 3 M2 12/26/2021 4:18 AM [facility] Comment: NOTE: eGFR is not calculated for patients <18 years of age. This is an estimated GFR calculation using the new CKD EPI creatinine equation without race and so does not require a correction factor for race. This estimated GFR should not be used for calculating drug doses. 12/26/2021 3:49 AM TEMPLATE INSPECTOR us Roxana HUGHES LABORATORY Final Res ult Performing Organization Address City/[facility]/ZIP Co de Phone Number [facility] [address] [place] [address], [place] [phone] * (ABNORMAL) POCT glucose (12/25/2021 8:37 PM TEMPLATE INSPECTOR) Pathologist [facility] GLUCOSE POC 204(H) 70 - 99 mg/dL 12/25/2021 8:40 PM TEMPLATE INSPECTOR [facility] 12/25/2021 8:37 PM TEMPLATE INSPECTOR Roxana HUGHES POCT ORDERABLES - DEVICE Final Result [facility] [address] [place] [address], [place] [phone] * CULTURE STREP A (12/25/2021 5:15 PM TEMPLATE INSPECTOR) SPEC DESCRIPTION THROAT 12/25/2021 3:17 PM TEMPLATE INSPECTOR [facility] SPECIAL REQUESTS NO SPECIAL REQUEST 12/25/2021 3:17 PM TEMPLATE INSPECTOR [facility] CULTURE RESULT NO STREPTOCOCCUS PYOGENES (GROUP A) ISOLATED 12/28/2021 7:00 AM TEMPLATE INSPECTOR [facility] THROAT SWAB / Unknown 12/25/2021 5:15 PM TEMPLATE INSPECTOR 12/25/2021 5:29 PM TEMPLATE INSPECTOR Roxana Merino Geraldine HUGHES MICROBIOLOGY - GENERAL OR DERABLES Final Result Performing Organization Address [facility] Co de Phone Number [facility] [address] [place] [address], [place] [phone] * (ABNORMAL) POCT glucose (12/25/2021 3:09 PM TEMPLATE INSPECTOR) [facility] GLUCOSE POC 287(H) 70 - 99 mg/dL 12/25/2021 3:31 PM TEMPLATE INSPECTOR [facility] 12/25/2021 3:09 PM TEMPLATE INSPECTOR Roxana Merino Geraldine HUGHES POCT ORDERABLES - DEVICE Final Result Performing Organization Address [facility] de Phone Number [facility] [address] [place] [address], [place] [phone] * XR ABD KUB (12/25/2021 12:55 PM TEMPLATE INSPECTOR) Anatomical Region Laterality Modality Abdomen Radiographic Shelli ging 12/25/2021 1:17 PM TEMPLATE INSPECTOR Impressions 12/25/2021 1:26 PM TEMPLATE INSPECTOR IMPRESSION: Nonobstructive bowel gas pattern. Referred By: ?? Interpreted By: Angelito Tidwell MD, 12/25/2021 1:17 PM Narrative 12/25/2021 1:26 PM TEMPLATE INSPECTOR IMAGING STUDIES: ??XR ABD KUB ? DATE: ??12/25/2021 12:49 PM HISTORY: r/o ileus 51-year-old female. ??Inpatient. ??Clinical concern for ileus. COMPARISON: ??Chest portable 12/23/2021. ??Supine abdomen 12/16/2021. ??CT abdomen and pelvis with contrast 10/29/2021. DISCUSSION: Supine view of the abdomen and pelvis 2 images. Nonobstructive bowel gas pattern. Oval 11 mm calcification projecting just superior to the iliac crest at the level of L5 transverse process correlates to benign calcification anterior to the psoas muscle and lateral to the ureter on CT. ??Calcification along the right side at the L4 level is also evident on prior CT and not associated with the ureter. Numerous calcifications in the left upper quadrant splenic granulomas. ??Arterial vascular calcifications and phleboliths in the pelvis. ??Bilateral buttock injection granulomas. On the 10/29/2021 CT study, 2 mm right and 4 mm left nonobstructing renal calcifications but are not clearly evident on the current radiograph. Mild degenerative changes of the spine, pelvis, and hips. Procedure Note Angelito Tidwell MD - 12/25/2021 IMAGING STUDIES: XR ABD KUBDATE: 12/25/2021 12:49 PM HISTORY: r/o ileus 51-year-old female. Inpatient. Clinical concern forileus. COMPARISON: Chest portable 12/23/2021. Supine abdomen 12/16/2021. CTabdomen and pelvis with contrast 10/29/2021. DISCUSSION: Supine view of the abdomen and pelvis 2 images. Nonobstructive bowel gas pattern. Oval 11 mm calcification projecting just superior to the iliac crest atthe level of L5 transverse process correlates to benign calcificationanterior to the psoas muscle and lateral to the ureter on CT.Calcification along the right side at the L4 level is also evident onprior CT and not associated with the ureter. Numerous calcifications in the left upper quadrant splenic granulomas.Arterial vascular calcifications and phleboliths in the pelvis. Bilateralbuttock injection granulomas. On the 10/29/2021 CT study, 2 mm right and 4 mm left nonobstructing renalcalcifications but are not clearly evident on the current radiograph. Mild degenerative changes of the spine, pelvis, and hips. IMPRESSION: Nonobstructive bowel gas pattern. Referred By: Interpreted By: Angelito Tidwell MD, 12/25/2021 1:17 PM Roxana HUGHES GENERAL IMAGING Final Res ult * (ABNORMAL) POCT glucose (12/25/2021 11:57 AM TEMPLATE INSPECTOR) GLUCOSE POC 176(H) 70 - 99 mg/dL 12/25/2021 12:01 PM TEMPLATE INSPECTOR [facility] 12/25/2021 11:5 7 AM TEMPLATE INSPECTOR Roxana Merino Geraldine HUGHES POCT ORDERABLES - DEVICE Final Result Performing Organization Address [facility]/ZIP Co de Phone Number [facility] [address] [place] [address], [place] [phone] * (ABNORMAL) POCT glucose (12/25/2021 7:25 AM TEMPLATE INSPECTOR) GLUCOSE POC 139(H) 70 - 99 mg/dL 12/25/2021 6:27 AM TEMPLATE INSPECTOR [facility] 12/25/2021 7:25 AM TEMPLATE INSPECTOR Roxana Angelique HUGHES POCT ORDERABLES - DEVICE Final Result Performing Organization Address City/[facility]/ZIP Co de Phone Number [facility] [address] [place] [address], [place] [phone] * (ABNORMAL) CBC W/DIFF AUTOMATED (12/25/2021 3:42 AM TEMPLATE INSPECTOR) [facility] WBC 9.3 4.5 - 11.0 x10'3/uL 12/25/2021 3:53 AM [facility] RBC 3.40(L) 4.20 - 5.40 x10'6/uL 12/25/2021 3:53 AM [facility] HGB 10.2(L) 12.0 - 16.0 G/DL 12/25/2021 3:53 AM [facility] HCT 30.4(L) 38.0 - 48.0 % 12/25/2021 3:53 AM [facility] MCV 89.4 81.0 - 99.0 FL 12/25/2021 3:53 AM [facility] MCH 30.0 27.0 - 31.0 PG 12/25/2021 3:53 AM [facility] MCHC 33.6 32.0 - 36.0 G/DL 12/25/2021 3:53 AM [facility] RDW 12.8 11.5 - 14.5 % 12/25/2021 3:53 AM [facility] PLT 244 130 - 400 x10'3/uL 12/25/2021 3:53 AM [facility] MPV 11.1 9.3 - 12.2 FL 12/25/2021 3:53 AM [facility] DIFFERENTIAL TYPE AUTOMATED DIFFERENTIAL 12/25/2021 3:53 AM [facility] NEUTROPHILS % 55.9 % 12/25/2021 3:53 AM [facility] LYMPHOCYTES % 35.8 % 12/25/2021 3:53 AM [facility] MONOCYTES % 5.7 % 12/25/2021 3:53 AM [facility] EOSINOPHILS 1.9 % 12/25/2021 3:53 AM TEMPLATE INSPECTOR [facility] BASOPHILS 0.4 % 12/25/2021 3:53 AM [facility] IMMATURE GRANS % 0.3 % 12/26/19 3:53 AM TEMPLATE INSPECTOR [facility] ABS. NEUTROPHILS TOTAL 5.19 1.80 - 7.70 x10'3/uL 12/25/2021 3:53 AM TEMPLATE INSPECTOR [facility] ABS. LYMPHOCYTES 3.33 1.00 - 4.80 x10'3/uL 12/25/2021 3:53 AM TEMPLATE INSPECTOR [facility] ABS. MONOCYTES 0.53 0.24 - 0.86 x10'3/uL 12/25/2021 3:53 AM [facility] ABS. EOSINOPHILS 0.18 0.04 - 0.36 x10'3/uL 12/25/2021 3:53 AM TEMPLATE INSPECTOR [facility] ABS. BASOPHILS 0.04 0.01 - 0.08 x10'3/uL 12/25/2021 3:53 AM [facility] ABS. IMMATURE GRANULOCYTES 0.03 0.00 - 0.49 x10'3/uL 12/25/2021 3:53 AM [facility] 12/25/2021 3:42 AM TEMPLATE INSPECTOR us Roxana Chandler APNP LABORATORY Final Res ult [facility] [address] [place] [address], [place] [phone] * (ABNORMAL) COMPREHENSIVE METABOLIC PANEL (12/25/2021 3:42 AM TEMPLATE INSPECTOR) [facility] GLUCOSE 142(H) 70 - 99 MG/DL 12/25/2021 4:24 AM [facility] BUN 27(H) 7 - 18 MG/DL 12/25/2021 4:24 AM [facility] CREATININE S/P/B 1.02 0.55 - 1.02 MG/DL 12/25/2021 4:24 AM [facility] SODIUM S/P/B 138 136 - 145 MMOL/L 12/25/2021 4:24 AM [facility] POTASSIUM S/P/B 4.2 3.5 - 5.1 MMOL/L 12/25/2021 4:24 AM [facility] CHLORIDE S/P/B 107 100 - 108 MMOL/L 12/25/2021 4:24 AM [facility] CO2 25.3 21 - 32 MMOL/L 12/25/2021 4:24 AM [facility] CALCIUM S/P/B 9.2 8.5 - 10.1 MG/DL 12/25/2021 4:24 AM [facility] BILIRUBIN TOTAL S/P/B 0.2 0.2 - 1.2 MG/DL 12/25/2021 4:24 AM [facility] Comment: THIS ASSAY IS NOT RECOMMENDED FOR PATIENTS UNDERGOING TREATMENT WITH ELTROMBOPAG DUE TO THE POTENTIAL FOR FALSELY ELEVATED RESULTS. TOTAL PROTEIN S/P/B 7.8 6.4 - 8.2 G/DL 12/25/2021 4:24 AM [facility] ALBUMIN S/P/B 2.8(L) 3.4 - 5.0 G/DL 12/25/2021 4:24 AM [facility] AST 38(H) 15 - 37 U/L 12/25/2021 4:24 AM [facility] ALT 80(H) 14 - 55 U/L 12/25/2021 4:24 AM [facility] ALKALINE PHOSPHATASE S/P/B 184(H) 50 - 136 U/L 12/25/2021 4:24 AM TEMPLATE INSPECTOR [facility] ANION GAP 5.7 5 - 15 MMOL/L 12/25/2021 4:24 AM [facility] BUN CREATININE RATIO 26.5(H) 6 - 26 12/25/2021 4:24 AM [facility] A/G RATIO 0.6(L) 1.0 - 2.0 RATIO 12/25/2021 4:24 AM [facility] GFR ESTIMATE 67(L) >90 ML/MIN/1.7 3 M2 12/25/2021 4:24 AM [facility] Comment: NOTE: eGFR is not calculated for patients <18 years of age. This is an estimated GFR calculation using the new CKD EPI creatinine equation without race and so does not require a correction factor for race. This estimated GFR should not be used for calculating drug doses. 12/25/2021 3:42 AM TEMPLATE INSPECTOR us Roxana HUGHES LABORATORY Final Res ult [facility] [address] [place] [address], [place] [phone] * CK (CPK) - Weekly starting tomorrow (12/25/2021 3:42 AM TEMPLATE INSPECTOR) CPK 71 21 - 215 U/L 12/25/2021 4:24 AM TEMPLATE INSPECTOR [facility] 12/25/2021 3:42 AM TEMPLATE INSPECTOR us Ezio Bethea DO LABORATORY Final Result [facility] [address] [facility] [place] [address], [place] [phone] * (ABNORMAL) POCT glucose (12/24/2021 10:11 PM CDT) GLUCOSE POC 196(H) 70 - 99 mg/dL 12/25/2021 6:27 AM TEMPLATE INSPECTOR [facility] 12/24/2021 10:1 1 PM CDT us Roxana Chandler APSUSAN POCT ORDERABLES - DEVICE Final Result Performing Organization Address City/[facility]/ZIP Co de Phone Number [address] [address], [place] [phone] * (ABNORMAL) POCT glucose (12/24/2021 5:35 PM CDT) GLUCOSE POC 233(H) 70 - 99 mg/dL 12/24/2021 5:48 PM CDT [facility] 12/24/2021 5:35 PM CDT us Roxana Chandler APSUSAN POCT ORDERABLES - DEVICE Final Result Performing Organization Address City/[facility]/ZIP Co de Phone Number [address] [address], [place] [phone] * (ABNORMAL) POCT glucose (12/24/2021 11:46 AM CDT) GLUCOSE POC 239(H) 70 - 99 mg/dL 12/24/2021 11:59 AM CDT [facility] 12/24/2021 11:4 6 AM CDT us Roxana Chandler APNP POCT ORDERABLES - DEVICE Final Result [facility] [address] [place] [address], * (ABNORMAL) POCT glucose (12/24/2021 6:29 AM CDT) GLUCOSE POC 189(H) 70 - 99 mg/dL 12/24/2021 6:34 AM CDT [facility] 12/24/2021 6:29 AM CDT Roxana Merino Geraldine HUGHES POCT ORDERABLES - DEVICE Final Result [facility] [address] [place] [address], * (ABNORMAL) CBC W/DIFF AUTOMATED (12/24/2021 3:45 AM CDT) [facility] Signature WBC 7.4 4.5 - 11.0 x10'3/uL 12/24/2021 4:07 AM CDT [facility] RBC 3.43(L) 4.20 - 5.40 x10'6/uL 12/24/2021 4:07 AM CDT [facility] HGB 10.3(L) 12.0 - 16.0 G/DL 12/24/2021 4:07 AM CDT [facility] HCT 30.9(L) 38.0 - 48.0 % 12/24/2021 4:07 AM CDT [facility] MCV 90.1 81.0 - 99.0 FL 12/24/2021 4:07 AM CDT [facility] MCH 30.0 27.0 - 31.0 PG 12/24/2021 4:07 AM CDT [facility] MCHC 33.3 32.0 - 36.0 G/DL 12/24/2021 4:07 AM CDT [facility] RDW 12.8 11.5 - 14.5 % 12/24/2021 4:07 AM CDT [facility] PLT 247 130 - 400 x10'3/uL 12/24/2021 4:07 AM CDT [facility] MPV 11.1 9.3 - 12.2 FL 12/24/2021 4:07 AM CDT [facility] DIFFERENTIAL TYPE AUTOMATED DIFFERENTIAL 12/24/2021 4:07 AM CDT [facility] NEUTROPHILS % 58.0 % 12/24/2021 4:07 AM CDT [facility] LYMPHOCYTES % 33.6 % 12/24/2021 4:07 AM CDT [facility] MONOCYTES % 5.6 % 12/24/2021 4:07 AM CDT [facility] EOSINOPHILS 2.0 % 12/24/2021 4:07 AM CDT [facility] BASOPHILS 0.5 % 12/24/2021 4:07 AM CDT [facility] IMMATURE GRANS % 0.3 % 12/25/19 4:07 AM CDT [facility] ABS. NEUTROPHILS TOTAL 4.26 1.80 - 7.70 x10'3/uL 12/24/2021 4:07 AM CDT [facility] ABS. LYMPHOCYTES 2.47 1.00 - 4.80 x10'3/uL 12/24/2021 4:07 AM CDT [facility] ABS. MONOCYTES 0.41 0.24 - 0.86 x10'3/uL 12/24/2021 4:07 AM CDT [facility] ABS. EOSINOPHILS 0.15 0.04 - 0.36 x10'3/uL 12/24/2021 4:07 AM CDT [facility] ABS. BASOPHILS 0.04 0.01 - 0.08 x10'3/uL 12/24/2021 4:07 AM CDT [facility] ABS. IMMATURE GRANULOCYTES 0.02 0.00 - 0.49 x10'3/uL 12/24/2021 4:07 AM CDT [facility] 12/24/2021 3:45 AM CDT us Roxana Chandler APNP LABORATORY Final Res ult [facility] [address] [place] [address], [place] [phone] * (ABNORMAL) BASIC METABOLIC PANEL (12/24/2021 3:45 AM CDT) GLUCOSE 175(H) 70 - 99 MG/DL 12/24/2021 4:26 AM CDT [facility] BUN 23(H) 7 - 18 MG/DL 12/24/2021 4:26 AM CDT [facility] CREATININE S/P/B 1.05(H) 0.55 - 1.02 MG/DL 12/24/2021 4:26 AM CDT [facility] SODIUM S/P/B 137 136 - 145 MMOL/L 12/24/2021 4:26 AM CDT [facility] POTASSIUM S/P/B 4.7 3.5 - 5.1 MMOL/L 12/24/2021 4:26 AM CDT [facility] CHLORIDE S/P/B 107 100 - 108 MMOL/L 12/24/2021 4:26 AM CDT [facility] CO2 25.2 21 - 32 MMOL/L 12/24/2021 4:26 AM CDT [facility] CALCIUM S/P/B 8.7 8.5 - 10.1 MG/DL 12/24/2021 4:26 AM CDT [facility] ANION GAP 4.8(L) 5 - 15 MMOL/L 12/24/2021 4:26 AM CDT [facility] BUN CREATININE RATIO 21.9 6 - 26 12/24/2021 4:26 AM CDT [facility] GFR ESTIMATE 65(L) >90 ML/MIN/1.7 3 M2 12/24/2021 4:26 AM CDT [facility] Comment: NOTE: eGFR is not calculated for patients <18 years of age. This is an estimated GFR calculation using the new CKD EPI creatinine equation without race and so does not require a correction factor for race. This estimated GFR should not be used for calculating drug doses. 12/24/2021 3:45 AM CDT Roxana HUGHES LABORATORY Final Res ult [facility] [address] [place] [id number], [place] [phone] * (ABNORMAL) POCT glucose (12/23/2021 7:54 PM CDT) [facility] Signature GLUCOSE POC 259(H) 70 - 99 mg/dL 12/23/2021 8:05 PM CDT [facility] 12/23/2021 7:54 PM CDT Roxana HUGHES POCT ORDERABLES - DEVICE Final Result [facility] [address] [place] [address], [place] [phone] * (ABNORMAL) POCT glucose (12/23/2021 5:17 PM CDT) GLUCOSE POC 218(H) 70 - 99 mg/dL 12/23/2021 6:01 PM CDT [facility] 12/23/2021 5:17 PM CDT Roxana Chandler APNP POCT ORDERABLES - DEVICE Final Result [facility] [address] [place] [id number], * XR CHEST PORTABLE (12/23/2021 12:03 PM CDT) Anatomical Region Laterality Modality Chest Radiographic Shelli ging 12/23/2021 12:0 0 PM CDT Impressions 12/23/2021 12:02 PM CDT IMPRESSION: PICC in satisfactory position. ??No acute infiltrate or consolidation. Referred By: ?? Interpreted By: Angelito Tidwell MD, 12/23/2021 12:00 PM Narrative 12/23/2021 12:02 PM CDT IMAGING STUDIES: ??XR CHEST PORTABLE ? DATE: ??12/23/2021 11:51 AM HISTORY: ??line placement check- IV ABX due 51-year-old female with PICC placement. COMPARISON: ??Chest and left RIBS 08/17/2021. ??Chest portable 07/09/2021. DISCUSSION: Portable AP upright view chest. Right upper extremity PICC with tip to the central superior vena cava. Heart size is within normal limits. No acute pulmonary vascular congestion. No infiltrate, consolidation, pneumothorax, or pleural effusion. No acute skeletal abnormality. Procedure Note Angelito Tidwell MD - 12/23/2021 IMAGING STUDIES: XR CHEST PORTABLEDATE: 12/23/2021 11:51 AM HISTORY: line placement check- IV ABX due 51-year-old female with PICCplacement. COMPARISON: Chest and left RIBS 08/17/2021. Chest portable 07/09/2021. DISCUSSION: Portable AP upright view chest. Right upper extremity PICC with tip to the central superior vena cava. Heart size is within normal limits. No acute pulmonary vascularcongestion. No infiltrate, consolidation, pneumothorax, or pleural effusion. No acute skeletal abnormality. IMPRESSION: PICC in satisfactory position. No acute infiltrate or consolidation. Referred By: Interpreted By: Angelito Tidwell MD, 12/23/2021 12:00 PM Roxana HUGHES [facility] Final Res ult * (ABNORMAL) POCT glucose (12/23/2021 12:03 PM CDT) GLUCOSE POC 185(H) 70 - 99 mg/dL 12/23/2021 12:19 PM CDT [facility] 12/23/2021 12:0 3 PM CDT Roxana HUGHES POCT ORDERABLES - DEVICE Final Result [facility] [address] [place] [address], [place] [phone] * (ABNORMAL) POCT glucose (12/23/2021 6:25 AM CDT) GLUCOSE POC 234(H) 70 - 99 mg/dL 12/23/2021 6:27 AM CDT [facility] 12/23/2021 6:25 AM CDT Roxana Chandler ELLEN POCT ORDERABLES - DEVICE Final Result [facility] [address] [place] [address], [place] [phone] * (ABNORMAL) CBC W/DIFF AUTOMATED (12/23/2021 3:55 AM CDT) Pathologist [facility] [place] WBC 8.2 4.5 - 11.0 x10'3/uL 12/23/2021 4:16 AM CDT [facility] RBC 3.45(L) 4.20 - 5.40 x10'6/uL 12/23/2021 4:16 AM CDT [facility] HGB 10.3(L) 12.0 - 16.0 G/DL 12/23/2021 4:16 AM CDT [facility] HCT 31.4(L) 38.0 - 48.0 % 12/23/2021 4:16 AM CDT [facility] MCV 91.0 81.0 - 99.0 FL 12/23/2021 4:16 AM CDT [facility] MCH 29.9 27.0 - 31.0 PG 12/23/2021 4:16 AM CDT [facility] MCHC 32.8 32.0 - 36.0 G/DL 12/23/2021 4:16 AM CDT [facility] RDW 12.8 11.5 - 14.5 % 12/23/2021 4:16 AM CDT [facility] PLT 259 130 - 400 x10'3/uL 12/23/2021 4:16 AM CDT [facility] MPV 11.1 9.3 - 12.2 FL 12/23/2021 4:16 AM CDT [facility] DIFFERENTIAL TYPE AUTOMATED DIFFERENTIAL 12/23/2021 4:16 AM CDT [facility] NEUTROPHILS % 70.5 % 12/23/2021 4:16 AM T [facility] LYMPHOCYTES % 22.0 % 12/23/2021 4:16 AM T [facility] MONOCYTES % 5.5 % 12/23/2021 4:16 AM CDT [facility] EOSINOPHILS 1.0 % 12/23/2021 4:16 AM CDT [facility] BASOPHILS 0.6 % 12/23/2021 4:16 AM T [facility] IMMATURE GRANS % 0.4 % 12/24/19 4:16 AM T [facility] ABS. NEUTROPHILS TOTAL 5.80 1.80 - 7.70 x10'3/uL 12/23/2021 4:16 AM T [facility] ABS. LYMPHOCYTES 1.81 1.00 - 4.80 x10'3/uL 12/23/2021 4:16 AM [facility] ABS. MONOCYTES 0.45 0.24 - 0.86 x10'3/uL 12/23/2021 4:16 AM [facility] ABS. EOSINOPHILS 0.08 0.04 - 0.36 x10'3/uL 12/23/2021 4:16 AM T [facility] ABS. BASOPHILS 0.05 0.01 - 0.08 x10'3/uL 12/23/2021 4:16 AM [facility] ABS. IMMATURE GRANULOCYTES 0.03 0.00 - 0.49 x10'3/uL 12/23/2021 4:16 AM [facility] 12/23/2021 3:55 AM CDT us Roxana Chandler APNP LABORATORY Final Res ult [facility] [address] [place] [address], [place] [phone] * (ABNORMAL) BASIC METABOLIC PANEL (12/23/2021 3:55 AM CDT) [facility] GLUCOSE 251(H) 70 - 99 MG/DL 12/23/2021 4:43 AM CDT [facility] BUN 28(H) 7 - 18 MG/DL 12/23/2021 4:43 AM CDT [facility] CREATININE S/P/B 1.11(H) 0.55 - 1.02 MG/DL 12/23/2021 4:43 AM CDT [facility] SODIUM S/P/B 135(L) 136 - 145 MMOL/L 12/23/2021 4:43 AM CDT [facility] POTASSIUM S/P/B 5.6(H) 3.5 - 5.1 MMOL/L 12/23/2021 4:43 AM CDT [facility] CHLORIDE S/P/B 106 100 - 108 MMOL/L 12/23/2021 4:43 AM CDT [facility] CO2 23.6 21 - 32 MMOL/L 12/23/2021 4:43 AM CDT [facility] CALCIUM S/P/B 8.8 8.5 - 10.1 MG/DL 12/23/2021 4:43 AM CDT [facility] ANION GAP 5.4 5 - 15 MMOL/L 12/23/2021 4:43 AM CDT [facility] BUN CREATININE RATIO 25.2 6 - 26 12/23/2021 4:43 AM CDT [facility] GFR ESTIMATE 61(L) >90 ML/MIN/1.7 3 M2 12/23/2021 4:43 AM CDT [facility] Comment: NOTE: eGFR is not calculated for patients <18 years of age. This is an estimated GFR calculation using the new CKD EPI creatinine equation without race and so does not require a correction factor for race. This estimated GFR should not be used for calculating drug doses. 12/23/2021 3:55 AM CDT Roxana Bradleyxavier HUGHES LABORATORY Final Res ult Performing Organization Address City/[facility] Co de Phone Number [facility] [address] [place] [address], [place] [phone] * (ABNORMAL) POCT glucose (12/22/2021 9:01 PM CDT) GLUCOSE POC 246(H) 70 - 99 mg/dL 12/22/2021 9:04 PM CDT [facility] 12/22/2021 9:01 PM CDT Roxana Bradleyxavier HUGHES POCT ORDERABLES - DEVICE Final Result Performing Organization Address [facility] Co de Phone Number [facility] [address] [place] [address], [place] [phone] * (ABNORMAL) POCT glucose (12/22/2021 5:07 PM CDT) GLUCOSE POC 256(H) 70 - 99 mg/dL 12/22/2021 5:27 PM CDT [facility] 12/22/2021 5:07 PM CDT us Roxana Bradleyjohn APNP POCT ORDERABLES - DEVICE Final Result Performing Organization Address City/[facility] Co de Phone Number [facility] [address] [place] [address], [place] [phone] * (ABNORMAL) POCT glucose (12/22/2021 11:11 AM CDT) GLUCOSE POC 242(H) 70 - 99 mg/dL 12/22/2021 11:19 AM CDT [facility] 12/22/2021 11:1 1 AM CDT Roxana Angelique HGUHES POCT ORDERABLES - DEVICE Final Result Performing Organization Address [facility] Co de Phone Number [facility] [address] [place] [address], [place] [phone] * (ABNORMAL) POCT glucose (12/22/2021 7:37 AM CDT) GLUCOSE POC 188(H) 70 - 99 mg/dL 12/22/2021 7:44 AM CDT [facility] 12/22/2021 7:37 AM CDT Roxana Angelique HUGHES POCT ORDERABLES - DEVICE Final Result Performing Organization Address City/[facility]/ZIP Co de Phone Number [facility] [address] [place] [address], [place] [phone] * CULTURE, ANAEROBIC (12/22/2021 7:15 AM CDT) SPEC DESCRIPTION TOE,RIGHT 12/22/2021 7:46 AM CDT [facility] SPECIAL REQUESTS NO SPECIAL REQUEST 12/22/2021 7:46 AM CDT [facility] GRAM STAIN RESULT NO WHITE BLOOD CELLS SEEN 12/22/2021 12:06 PM CDT [facility] GRAM STAIN RESULT RARE EPITHELIAL CELLS SEEN 12/22/2021 12:06 PM CDT [facility] GRAM STAIN RESULT NO ORGANISMS SEEN 12/22/2021 12:06 PM CDT [facility] CULTURE RESULT NO GROWTH 5 DAYS 12/27/2021 11:46 AM TEMPLATE INSPECTOR [facility] CULTURE RESULT NOTE: ANAEROBIC CULTURES ARE ROUTINELY SCREENED FOR BOTH AEROBIC AND ANAEROBIC ORGANISMS. 12/27/2021 11:46 AM TEMPLATE INSPECTOR [facility] WOUND STRUCTURE OF TOE OF RIGHT FOOT / Unknown 12/22/2021 7:44 AM CDT us Hubert Cheek DPM MICROBIOLOGY - GENERAL OR DERABLES Final Result [facility] [address] [place] [address], [place] [phone] * CULTURE, ANAEROBIC (12/22/2021 7:14 AM CDT) SPEC DESCRIPTION TOE,RIGHT 12/22/2021 7:46 AM CDT [facility] SPECIAL REQUESTS NO SPECIAL REQUEST 12/22/2021 7:46 AM CDT [facility] GRAM STAIN RESULT NO WHITE BLOOD CELLS SEEN 12/22/2021 12:05 PM CDT [facility] GRAM STAIN RESULT RARE EPITHELIAL CELLS SEEN 12/22/2021 12:05 PM CDT [facility] GRAM STAIN RESULT RARE RED BLOOD CELLS SEEN 12/22/2021 12:05 PM CDT [facility] GRAM STAIN RESULT NO ORGANISMS SEEN 12/22/2021 12:05 PM CDT [facility] CULTURE RESULT NO GROWTH 5 DAYS 12/27/2021 11:46 AM TEMPLATE INSPECTOR [facility] CULTURE RESULT NOTE: ANAEROBIC CULTURES ARE ROUTINELY SCREENED FOR BOTH AEROBIC AND ANAEROBIC ORGANISMS. 12/27/2021 11:46 AM [facility] WOUND STRUCTURE OF TOE OF RIGHT FOOT / Unknown 12/22/2021 7:44 AM CDT Hubert Cheek DPM MICROBIOLOGY - GENERAL OR DERABLES Final Result [facility] [address] [place] [address], [place] [phone] * (ABNORMAL) BASIC METABOLIC PANEL (12/22/2021 5:52 AM CDT) GLUCOSE 170(H) 70 - 99 MG/DL 12/22/2021 6:28 AM CDT [facility] BUN 33(H) 7 - 18 MG/DL 12/22/2021 6:28 AM CDT [facility] CREATININE S/P/B 1.29(H) 0.55 - 1.02 MG/DL 12/22/2021 6:28 AM CDT [facility] SODIUM S/P/B 136 136 - 145 MMOL/L 12/22/2021 6:28 AM CDT [facility] POTASSIUM S/P/B 4.6 3.5 - 5.1 MMOL/L 12/22/2021 6:28 AM CDT [facility] CHLORIDE S/P/B 105 100 - 108 MMOL/L 12/22/2021 6:28 AM CDT [facility] CO2 25.9 21 - 32 MMOL/L 12/22/2021 6:28 AM CDT [facility] CALCIUM S/P/B 9.5 8.5 - 10.1 MG/DL 12/22/2021 6:28 AM CDT [facility] ANION GAP 5.1 5 - 15 MMOL/L 12/22/2021 6:28 AM CDT [facility] BUN CREATININE RATIO 25.6 6 - 26 12/22/2021 6:28 AM CDT [facility] GFR ESTIMATE 51(L) >90 ML/MIN/1.7 3 M2 12/22/2021 6:28 AM CDT [facility] Comment: NOTE: eGFR is not calculated for patients <18 years of age. This is an estimated GFR calculation using the new CKD EPI creatinine equation without race and so does not require a correction factor for race. This estimated GFR should not be used for calculating drug doses. 12/22/2021 5:52 AM CDT Eduardo Aguillon APRN LABORATORY Final Result [facility] [address] [place] [address], [place] [phone] * (ABNORMAL) CBC W/DIFF AUTOMATED (12/22/2021 5:52 AM CDT) WBC 8.6 4.5 - 11.0 x10'3/uL 12/22/2021 6:07 AM CDT [facility] RBC 4.01(L) 4.20 - 5.40 x10'6/uL 12/22/2021 6:07 AM CDT [facility] HGB 12.1 12.0 - 16.0 G/DL 12/22/2021 6:07 AM CDT [facility] HCT 36.2(L) 38.0 - 48.0 % 12/22/2021 6:07 AM CDT [facility] MCV 90.3 81.0 - 99.0 FL 12/22/2021 6:07 AM CDT [facility] MCH 30.2 27.0 - 31.0 PG 12/22/2021 6:07 AM CDT [facility] MCHC 33.4 32.0 - 36.0 G/DL 12/22/2021 6:07 AM CDT [facility] RDW 12.7 11.5 - 14.5 % 12/22/2021 6:07 AM CDT [facility] PLT 321 130 - 400 x10'3/uL 12/22/2021 6:07 AM CDT [facility] MPV 10.9 9.3 - 12.2 FL 12/22/2021 6:07 AM CDT [facility] DIFFERENTIAL TYPE AUTOMATED DIFFERENTIAL 12/22/2021 6:07 AM CDT [facility] NEUTROPHILS % 46.7 % 12/22/2021 6:07 AM CDT [facility] LYMPHOCYTES % 46.8 % 12/22/2021 6:07 AM CDT [facility] MONOCYTES % 4.4 % 12/22/2021 6:07 AM CDT [facility] EOSINOPHILS 1.2 % 12/22/2021 6:07 AM CDT [facility] BASOPHILS 0.7 % 12/22/2021 6:07 AM CDT [facility] IMMATURE GRANS % 0.2 % 12/23/19 6:07 AM CDT [facility] ABS. NEUTROPHILS TOTAL 4.00 1.80 - 7.70 x10'3/uL 12/22/2021 6:07 AM CDT [facility] ABS. LYMPHOCYTES 4.01 1.00 - 4.80 x10'3/uL 12/22/2021 6:07 AM CDT [facility] ABS. MONOCYTES 0.38 0.24 - 0.86 x10'3/uL 12/22/2021 6:07 AM CDT [facility] ABS. EOSINOPHILS 0.10 0.04 - 0.36 x10'3/uL 12/22/2021 6:07 AM CDT [facility] ABS. BASOPHILS 0.06 0.01 - 0.08 x10'3/uL 12/22/2021 6:07 AM CDT [facility] ABS. IMMATURE GRANULOCYTES 0.02 0.00 - 0.49 x10'3/uL 12/22/2021 6:07 AM CDT [facility] 12/22/2021 5:52 AM CDT Eduardo Aguillon FILTER WORKER LABORATORY Final Result [facility] [address] [place] [address], * CORONAVIRUS (COVID-19) ANTIGEN (In-house [place]) (12/22/2021 5:46 AM CDT) [facility] CORONAVIRUS ANTIGEN IA NEGATIVE NEGATIVE 12/22/2021 6:31 AM CDT [facility] Comment: NEGATIVE RESULTS SHOULD BE [...] AUTHORIZATION (EUA) FOR USE BY AUTHORIZED LABORATORIES. SPECIMEN TYPE NASAL 12/22/2021 5:47 AM CDT [facility] FIRST TEST NO 12/22/2021 5:47 AM CDT [facility] EMPLOYED IN HEALTHCARE NO 12/22/2021 5:47 AM CDT [facility] SYMPTOMATIC DEFINED BY CDC NO 12/22/2021 5:47 AM CDT [facility] HOSPITALIZATION STATUS YES 12/22/2021 5:47 AM CDT [facility] PATIENT IN ICU NO 12/22/2021 5:47 AM CDT [facility] RESIDENT OF [facility] NO 12/22/2021 5:47 AM CDT [facility] NOT 12/22/2021 5:47 AM CDT [facility] NASAL NASAL STRUCTURE / Unknown 12/22/2021 5:46 AM CDT Roxana BROOKENP MICROBIOLOGY - GENERAL OR DERABLES Final Result [facility] [address] [place] [address], [place] [phone] * (ABNORMAL) POCT glucose (12/22/2021 5:01 AM CDT) Pathologist [facility] [place] GLUCOSE POC 153(H) 70 - 99 mg/dL 12/22/2021 5:45 AM CDT [facility] 12/22/2021 5:01 AM CDT Roxana Angelique HUGHES POCT ORDERABLES - DEVICE Final Result [facility] [address] [place] [address], [place] [phone] * Pathology (12/22/2021 12:00 AM CDT) COPATH REPORT ?[facility] ? [address] ? [place], [place] ??[id number] ? [id number] ? Department of Pathology ? Pathology Report ? SURGICAL FINAL REPORT Patient Name: TYSON MCNEAL ? : 1970 (Age: 51) ? Location: [id number] Gender: F ?Collected Date: 12/22/2021 Med Rec #: [id number] ?Date Received: 12/22/2021 Date Reported: 12/23/2021 Provider: DESIREE MACKENZIE MD ?WANDA URBINA MD ?DAVID MARIE C ?EDUARDO AGUILLON FILTER WORKER ?ROXANA Merino GERALDINE SWITCH INSPECTOR ?HUBERT CHEEK DPM Specimen(s) A: Bone, biopsy, 1st toe B: Bone, biopsy, 2nd toe Final Pathologic Diagnosis A. ??BONE, FIRST TOE, BIOPSY: ? - ? FIBROUS TISSUE AND SCANT BONE WITHOUT EVIDENCE OF ACUTE OSTEOMYELITIS IN A ?SUBOPTIMAL SPECIMEN (SEE COMMENT) B. ??BONE, SECOND TOE, BIOPSY: ? - ? VIABLE BONE WITH NO EVIDENCE OF ACUTE OR CHRONIC OSTEOMYELITIS COMMENT The first toe bone biopsy consists almost entirely of soft tissue with only a <1 mm fragment of cortical bone. ??The scant interstitium that is available is negative for osteomyelitis, but the specimen is suboptimal for evaluation. Electronically Signed Out ? TEE MUSE MD Pathologist OJL:[facility] Microscopic Description: The microscopic examination substantiates the above captioned diagnoses. Multiple levels of the A and B specimens are examined. ?? Clinical History Osteomyelitis right foot Gross Description Received are two fresh containers, both labeled with the patient's name (Tyson Mcnela), date of (1970). A. ??Additionally labeled first toe bone biopsy , formalin time 12/22/2021 at 1050. ??The specimen consists of a red-mohan core of bone measuring 0.5 cm in length with a diameter up to 0.3 cm. ??The specimen is submitted in toto in cassette A1, following decalcification. B. ??Additionally labeled second toe bone biopsy , formalin time 12/22/2021 at 1050. ??The specimen consists of a yellow-mohan to pink-mohan core of bone measuring 0.4 cm in length with a diameter up to 0.3 cm. ??The specimen is submitted in toto in cassette B1, following decalcification. :[facility] Billing Fee Code(s): 44658(2), 28915(2) [facility] TISSUE STRUCTURE OF TOE OF RIGHT FOOT / Unknown 12/22/2021 7:14 AM CDT Hubert Cheek DPRonnie PATHOLOGY/CYTOLOGY ORDERA BLES Final Result Performing Organization Address City/[facility]/ZIP Co de Phone Number [facility] [address] [place] [address], [place] [phone] * (ABNORMAL) POCT glucose (12/21/2021 8:17 PM CDT) GLUCOSE POC 275(H) 70 - 99 mg/dL 12/21/2021 8:59 PM CDT [facility] 12/21/2021 8:17 PM CDT Roxana Merino Geraldine HUGHES POCT ORDERABLES - DEVICE Final Result Performing Organization Address City/[facility]/ZIP Co de Phone Number [facility] [address] [place] [address], [place] [phone] * (ABNORMAL) POCT glucose (12/21/2021 4:49 PM CDT) GLUCOSE POC 275(H) 70 - 99 mg/dL 12/21/2021 4:53 PM CDT [facility] 12/21/2021 4:49 PM CDT Roxana Bradleyxavier HUGHES POCT ORDERABLES - DEVICE Final Result Performing Organization Address City/[facility]/ZIP Co de Phone Number [facility] [address] [place] [address], [place] [phone] * (ABNORMAL) POCT glucose (12/21/2021 12:13 PM CDT) GLUCOSE POC 287(H) 70 - 99 mg/dL 12/21/2021 1:13 PM CDT [facility] 12/21/2021 12:1 3 PM CDT Roxana Chandler APNP POCT ORDERABLES - DEVICE Final Result [facility] [address] [place] [address], [place] [phone] * (ABNORMAL) BASIC METABOLIC PANEL (12/21/2021 7:42 AM CDT) GLUCOSE 162(H) 70 - 99 MG/DL 12/21/2021 8:22 AM CDT [facility] BUN 26(H) 7 - 18 MG/DL 12/21/2021 8:22 AM CDT [facility] CREATININE S/P/B 1.21(H) 0.55 - 1.02 MG/DL 12/21/2021 8:22 AM CDT [facility] SODIUM S/P/B 138 136 - 145 MMOL/L 12/21/2021 8:22 AM CDT [facility] POTASSIUM S/P/B 4.7 3.5 - 5.1 MMOL/L 12/21/2021 8:22 AM CDT [facility] CHLORIDE S/P/B 105 100 - 108 MMOL/L 12/21/2021 8:22 AM CDT [facility] CO2 28.6 21 - 32 MMOL/L 12/21/2021 8:22 AM CDT [facility] CALCIUM S/P/B 9.8 8.5 - 10.1 MG/DL 12/21/2021 8:22 AM CDT [facility] ANION GAP 4.4(L) 5 - 15 MMOL/L 12/21/2021 8:22 AM CDT [facility] BUN CREATININE RATIO 21.5 6 - 26 12/21/2021 8:22 AM CDT [facility] GFR ESTIMATE 55(L) >90 ML/MIN/1.7 3 M2 12/21/2021 8:22 AM CDT [facility] Comment: NOTE: eGFR is not calculated for patients <18 years of age. This is an estimated GFR calculation using the new CKD EPI creatinine equation without race and so does not require a correction factor for race. This estimated GFR should not be used for calculating drug doses. 12/21/2021 7:42 AM CDT Eduardo Aguillon FILTER WORKER LABORATORY Final Result [facility] [address] [place] [address], * (ABNORMAL) CBC W/DIFF AUTOMATED (12/21/2021 7:42 AM CDT) WBC 7.3 4.5 - 11.0 x10'3/uL 12/21/2021 7:56 AM CDT [facility] RBC 4.08(L) 4.20 - 5.40 x10'6/uL 12/21/2021 7:56 AM CDT [facility] HGB 12.2 12.0 - 16.0 G/DL 12/21/2021 7:56 AM CDT [facility] HCT 37.0(L) 38.0 - 48.0 % 12/21/2021 7:56 AM CDT [facility] MCV 90.7 81.0 - 99.0 FL 12/21/2021 7:56 AM CDT [facility] MCH 29.9 27.0 - 31.0 PG 12/21/2021 7:56 AM CDT [facility] MCHC 33.0 32.0 - 36.0 G/DL 12/21/2021 7:56 AM CDT [facility] RDW 12.9 11.5 - 14.5 % 12/21/2021 7:56 AM CDT [facility] PLT 293 130 - 400 x10'3/uL 12/21/2021 7:56 AM CDT [facility] MPV 10.7 9.3 - 12.2 FL 12/21/2021 7:56 AM CDT [facility] DIFFERENTIAL TYPE AUTOMATED DIFFERENTIAL 12/21/2021 7:56 AM CDT [facility] NEUTROPHILS % 55.5 % 12/21/2021 7:56 AM CDT [facility] LYMPHOCYTES % 36.5 % 12/21/2021 7:56 AM CDT [facility] MONOCYTES % 5.5 % 12/21/2021 7:56 AM CDT [facility] EOSINOPHILS 1.5 % 12/21/2021 7:56 AM CDT [facility] BASOPHILS 0.7 % 12/21/2021 7:56 AM CDT [facility] IMMATURE GRANS % 0.3 % 12/22/19 7:56 AM CDT [facility] ABS. NEUTROPHILS TOTAL 4.04 1.80 - 7.70 x10'3/uL 12/21/2021 7:56 AM CDT [facility] ABS. LYMPHOCYTES 2.65 1.00 - 4.80 x10'3/uL 12/21/2021 7:56 AM CDT [facility] ABS. MONOCYTES 0.40 0.24 - 0.86 x10'3/uL 12/21/2021 7:56 AM CDT [facility] ABS. EOSINOPHILS 0.11 0.04 - 0.36 x10'3/uL 12/21/2021 7:56 AM CDT [facility] ABS. BASOPHILS 0.05 0.01 - 0.08 x10'3/uL 12/21/2021 7:56 AM CDT [facility] ABS. IMMATURE GRANULOCYTES 0.02 0.00 - 0.49 x10'3/uL 12/21/2021 7:56 AM CDT [facility] 12/21/2021 7:42 AM CDT Eduardo Aguillon FILTER WORKER LABORATORY Final Result Performing Organization Address [facility]/ZIP Co de Phone Number [facility] [address] [place] [phone], * Vancomycin Random Level (12/21/2021 7:42 AM CDT) VANCOMYCIN RANDOM 23.4 MCG/ML 12/21/2021 8:22 AM CDT [facility] Comment:NO THERAPEUTIC RANGE AVAILABLE VANCOMYCIN UNKNOWN LAST DOSE 12/21/2021 9:04 AM CDT [facility] 12/21/2021 7:42 AM CDT Wanda Mercer [employer] Final Resul t Performing Organization Address City/[facility]/ZIP Co de Phone Number [facility] [address] [place] [address], [place] [phone] * MAGNESIUM (12/21/2021 7:42 AM CDT) MAGNESIUM 2.0 1.8 - 2.4 MG/DL 12/21/2021 8:22 AM CDT [facility] 12/21/2021 7:42 AM CDT Eduardo Aguillon [employer] Final Result Performing Organization Address [facility]/ZIP Co de Phone Number [facility] [address] [place] [address], [place] [phone] * (ABNORMAL) POCT glucose (12/21/2021 6:35 AM CDT) GLUCOSE POC 155(H) 70 - 99 mg/dL 12/21/2021 6:39 AM CDT [facility] 12/21/2021 6:35 AM CDT Roxana Chandler APSUSAN POCT ORDERABLES - DEVICE Final Result Performing Organization Address City/[facility] Co de Phone Number [facility] [address] [place] [address], [place] [phone] * (ABNORMAL) POCT glucose (12/20/2021 9:23 PM CDT) GLUCOSE POC 231(H) 70 - 99 mg/dL 12/20/2021 9:34 PM CDT [facility] 12/20/2021 9:23 PM CDT us Eduardo Aguillon FILTER WORKER POCT ORDERABLES - DEVICE Final Result Performing Organization Address City/[facility]/ZIP Co de Phone Number [address] [address], [place] [phone] * MRI FOOT LT WO CON (12/20/2021 9:01 PM CDT) Anatomical Region Laterality Modality Foot Magnetic Resonan ce 12/20/2021 9:10 PM CDT Impressions 12/20/2021 9:13 PM CDT IMPRESSION: 1. ??No evidence of acute osteomyelitis identified. 2. ??Advanced midfoot degenerative change. Referred By: ?? Interpreted By: Arley Gastelum MD, 12/20/2021 9:10 PM Narrative 12/20/2021 9:13 PM CDT EXAMINATION: MRI FOOT LT WO CON HISTORY: Pain, swelling, fourth digit DATE: 12/20/2021 8:40 PM COMPARISON: X-ray 12/16/2021, MRI 02/07/2017 TECHNIQUE: Multisequence multiplanar unenhanced imaging of the left forefoot. 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 ??No acute fracture identified. ??No evidence of acute osteomyelitis. ??There are advanced degenerative changes of the midfoot, possibly neuropathic change. ??No tenosynovitis or fluid collection. Procedure Note Arley Gastelum MD - 12/20/2021 EXAMINATION: MRI FOOT LT WO CON HISTORY: Pain, swelling, fourth digit DATE: 12/20/2021 8:40 PM COMPARISON: X-ray 12/16/2021, MRI 02/07/2017 TECHNIQUE: Multisequence multiplanar unenhanced imaging of the leftforefoot. 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 No acute fracture identified. No evidence ofacute osteomyelitis. There are advanced degenerative changes of themidfoot, possibly neuropathic change. No tenosynovitis or fluidcollection. IMPRESSION: 1. No evidence of acute osteomyelitis identified. 2. Advanced midfoot degenerative change. Referred By: Interpreted By: Arley Gastelum MD, 12/20/2021 9:10 PM Eduardo Aguillon FILTER WORKER MRI Final Result * (ABNORMAL) POCT glucose (12/20/2021 4:35 PM CDT) GLUCOSE POC 225(H) 70 - 99 mg/dL 12/20/2021 4:48 PM CDT [facility] 12/20/2021 4:35 PM CDT Eduardo Aguillon FILTER WORKER POCT ORDERABLES - DEVICE Final Result [facility] [address] [place] [address], [place] [phone] * (ABNORMAL) POCT glucose (12/20/2021 11:37 AM CDT) GLUCOSE POC 233(H) 70 - 99 mg/dL 12/20/2021 11:51 AM CDT [facility] 12/20/2021 11:3 7 AM CDT Eduardo Aguillon APRN POCT ORDERABLES - DEVICE Final Result [facility] [address] [place] [id number], [place] [phone] * (ABNORMAL) BASIC METABOLIC PANEL (12/20/2021 9:40 AM CDT) GLUCOSE 182(H) 70 - 99 MG/DL 12/20/2021 10:32 AM CDT [facility] BUN 24(H) 7 - 18 MG/DL 12/20/2021 10:32 AM CDT [facility] CREATININE S/P/B 1.14(H) 0.55 - 1.02 MG/DL 12/20/2021 10:32 AM CDT [facility] SODIUM S/P/B 137 136 - 145 MMOL/L 12/20/2021 10:32 AM CDT [facility] POTASSIUM S/P/B 4.8 3.5 - 5.1 MMOL/L 12/20/2021 10:32 AM CDT [facility] CHLORIDE S/P/B 105 100 - 108 MMOL/L 12/20/2021 10:32 AM CDT [facility] CO2 26.8 21 - 32 MMOL/L 12/20/2021 10:32 AM CDT [facility] CALCIUM S/P/B 9.6 8.5 - 10.1 MG/DL 12/20/2021 10:32 AM CDT [facility] ANION GAP 5.2 5 - 15 MMOL/L 12/20/2021 10:32 AM CDT [facility] BUN CREATININE RATIO 21.1 6 - 26 12/20/2021 10:32 AM CDT [facility] GFR ESTIMATE 59(L) >90 ML/MIN/1.7 3 M2 12/20/2021 10:32 AM CDT [facility] Comment: NOTE: eGFR is not calculated for patients <18 years of age. This is an estimated GFR calculation using the new CKD EPI creatinine equation without race and so does not require a correction factor for race. This estimated GFR should not be used for calculating drug doses. 12/20/2021 9:40 AM CDT Eduardo Aguillon FILTER WORK[employer] LABORATORY Final Result [facility] [address] [place] [address], [place] [phone] * (ABNORMAL) CBC W/DIFF AUTOMATED (12/20/2021 9:40 AM CDT) WBC 8.3 4.5 - 11.0 x10'3/uL 12/20/2021 10:12 AM CDT [facility] RBC 4.03(L) 4.20 - 5.40 x10'6/uL 12/20/2021 10:12 AM CDT [facility] HGB 12.2 12.0 - 16.0 G/DL 12/20/2021 10:12 AM CDT [facility] HCT 36.4(L) 38.0 - 48.0 % 12/20/2021 10:12 AM CDT [facility] MCV 90.3 81.0 - 99.0 FL 12/20/2021 10:12 AM CDT [facility] MCH 30.3 27.0 - 31.0 PG 12/20/2021 10:12 AM CDT [facility] MCHC 33.5 32.0 - 36.0 G/DL 12/20/2021 10:12 AM CDT [facility] RDW 12.8 11.5 - 14.5 % 12/20/2021 10:12 AM CDT [facility] PLT 319 130 - 400 x10'3/uL 12/20/2021 10:12 AM CDT [facility] MPV 11.1 9.3 - 12.2 FL 12/20/2021 10:12 AM CDT [facility] DIFFERENTIAL TYPE AUTOMATED DIFFERENTIAL 12/20/2021 10:12 AM CDT [facility] NEUTROPHILS % 60.2 % 12/20/2021 10:12 AM CDT [facility] LYMPHOCYTES % 32.6 % 12/20/2021 10:12 AM CDT [facility] MONOCYTES % 5.3 % 12/20/2021 10:12 AM CDT [facility] EOSINOPHILS 1.1 % 12/20/2021 10:12 AM CDT [facility] BASOPHILS 0.6 % 12/20/2021 10:12 AM CDT [facility] IMMATURE GRANS % 0.2 % 12/21/19 10:12 AM CDT [facility] ABS. NEUTROPHILS TOTAL 5.01 1.80 - 7.70 x10'3/uL 12/20/2021 10:12 AM CDT [facility] ABS. LYMPHOCYTES 2.71 1.00 - 4.80 x10'3/uL 12/20/2021 10:12 AM CDT [facility] ABS. MONOCYTES 0.44 0.24 - 0.86 x10'3/uL 12/20/2021 10:12 AM CDT [facility] ABS. EOSINOPHILS 0.09 0.04 - 0.36 x10'3/uL 12/20/2021 10:12 AM CDT [facility] ABS. BASOPHILS 0.05 0.01 - 0.08 x10'3/uL 12/20/2021 10:12 AM CDT [facility] ABS. IMMATURE GRANULOCYTES 0.02 0.00 - 0.49 x10'3/uL 12/20/2021 10:12 AM CDT [facility] 12/20/2021 9:40 AM CDT Lino Stephen Aguillon FILTER WORKER LABORATORY Final Result [facility] [address] [place] [address], * MAGNESIUM (12/20/2021 9:40 AM CDT) MAGNESIUM 2.0 1.8 - 2.4 MG/DL 12/20/2021 10:32 AM CDT [facility] 12/20/2021 9:40 AM CDT Eduardo Mitchell Oscar FILTER WORK[employer] LABORATORY Final Result Performing Organization Address City/[facility]/ZIP Co de Phone Number [facility] [address] [place] [address], * (ABNORMAL) POCT glucose (12/20/2021 6:28 AM CDT) GLUCOSE POC 200(H) 70 - 99 mg/dL 12/20/2021 6:37 AM CDT [facility] 12/20/2021 6:28 AM CDT Eduardo Mitchell Oscar FILTER WORKER POCT ORDERABLES - DEVICE Final Result Performing Organization Address [facility] Co de Phone Number [facility] [address] [place] [phone], * (ABNORMAL) POCT glucose (12/20/2021 2:19 AM CDT) GLUCOSE POC 272(H) 70 - 99 mg/dL 12/20/2021 2:22 AM CDT [facility] 12/20/2021 2:19 AM CDT Roxana Chandler APSUSAN POCT ORDERABLES - DEVICE Final Result Performing Organization Address City/[facility]/ZIP Co de Phone Number [facility] [address] [place] [address], * (ABNORMAL) POCT glucose (12/19/2021 8:42 PM CDT) GLUCOSE POC 300(H) 70 - 99 mg/dL 12/19/2021 8:45 PM CDT [facility] 12/19/2021 8:42 PM CDT Roxana Chandler ELLEN POCT ORDERABLES - DEVICE Final Result [facility] [address] [place] [address], [place] [phone] * (ABNORMAL) URINALYSIS WI REFLEX TO CULTURE (12/19/2021 4:46 PM CDT) SPECIMEN TYPE URINE CLEAN CATCH 12/19/2021 4:46 PM CDT [facility] COLOR (U) LIGHT YELLOW 12/19/2021 5:03 PM CDT [facility] TRANSPARENCY CLEAR 12/19/2021 5:03 PM CDT [facility] SPECIFIC GRAVITY (U) 1.014 1.001 - 1.030 12/19/2021 5:03 PM CDT [facility] U PH 5.5 5.0 - 9.0 12/19/2021 5:03 PM CDT [facility] LEUKOCYTES (U) NEGATIVE NEGATIVE 12/19/2021 5:03 PM CDT [facility] NITRITES NEGATIVE NEGATIVE 12/19/2021 5:03 PM CDT [facility] PROTEIN (U) NEGATIVE <30 MG/DL 12/19/2021 5:03 PM CDT [facility] URINE GLUCOSE NORMAL NORMAL MG/DL 12/19/2021 5:03 PM CDT [facility] KETONES MG/DL (U) NEGATIVE NEGATIVE MG/DL 12/19/2021 5:03 PM CDT [facility] UROBILINOGEN NORMAL NORMAL MG/DL 12/19/2021 5:03 PM CDT [facility] BILIRUBIN (U) NEGATIVE NEGATIVE MG/DL 12/19/2021 5:03 PM CDT [facility] BLOOD (U) NEGATIVE NEGATIVE 12/19/2021 5:03 PM CDT [facility] CULTURE & SENSITIVITY INDICATED? CULTURE IS NOT INDICATED 12/19/2021 5:03 PM CDT [facility] MUCUS RARE /LPF 12/19/2021 5:03 PM CDT [facility] WBC/HPF 1 <6 /HPF 12/19/2021 5:03 PM CDT [facility] RBC/HPF <1 <6 /HPF 12/19/2021 5:03 PM CDT [facility] BACTERIA (U) RARE(A) NONE /HPF 12/19/2021 5:03 PM CDT [facility] SQUAMOUS EPITHELIALS RARE /HPF 12/19/2021 5:03 PM CDT [facility] URINE SPECIMEN OBTAINED BY CLEAN CATCH PROCEDURE / Unknown 12/19/2021 4:46 PM CDT Roxana HUGHES URINE ORDERABLES Final Re sult Performing Organization Address City/[facility]/ZIP Co de Phone Number [facility] [address] [place] [id number], [place] [phone] * (ABNORMAL) POCT glucose (12/19/2021 4:33 PM CDT) GLUCOSE POC 162(H) 70 - 99 mg/dL 12/19/2021 4:34 PM CDT [facility] 12/19/2021 4:33 PM CDT Roxana HUGHES POCT ORDERABLES - DEVICE Final Result [facility] [address] [place] [address], [place] [phone] * (ABNORMAL) POCT glucose (12/19/2021 12:38 PM CDT) GLUCOSE POC 202(H) 70 - 99 mg/dL 12/19/2021 12:41 PM CDT [facility] 12/19/2021 12:3 8 PM CDT Roxana Chandler APSUSAN POCT ORDERABLES - DEVICE Final Result [facility] [address] [place] [address], [place] [phone] * (ABNORMAL) COMPREHENSIVE METABOLIC PANEL (12/19/2021 5:30 AM CDT) GLUCOSE 91 70 - 99 MG/DL 12/19/2021 6:07 AM CDT [facility] BUN 21(H) 7 - 18 MG/DL 12/19/2021 6:07 AM CDT [facility] CREATININE S/P/B 1.02 0.55 - 1.02 MG/DL 12/19/2021 6:07 AM CDT [facility] SODIUM S/P/B 137 136 - 145 MMOL/L 12/19/2021 6:07 AM CDT [facility] POTASSIUM S/P/B 4.5 3.5 - 5.1 MMOL/L 12/19/2021 6:07 AM CDT [facility] CHLORIDE S/P/B 105 100 - 108 MMOL/L 12/19/2021 6:07 AM CDT [facility] CO2 28.8 21 - 32 MMOL/L 12/19/2021 6:07 AM CDT [facility] CALCIUM S/P/B 9.4 8.5 - 10.1 MG/DL 12/19/2021 6:07 AM T [facility] BILIRUBIN TOTAL S/P/B 0.3 0.2 - 1.2 MG/DL 12/19/2021 6:07 AM T [facility] Comment: THIS ASSAY IS NOT RECOMMENDED FOR PATIENTS UNDERGOING TREATMENT WITH ELTROMBOPAG DUE TO THE POTENTIAL FOR FALSELY ELEVATED RESULTS. TOTAL PROTEIN S/P/B 8.0 6.4 - 8.2 G/DL 12/19/2021 6:07 AM T [facility] ALBUMIN S/P/B 2.9(L) 3.4 - 5.0 G/DL 12/19/2021 6:07 AM T [facility] AST 16 15 - 37 U/L 12/19/2021 6:07 AM [facility] ALT 22 14 - 55 U/L 12/19/2021 6:07 AM [facility] ALKALINE PHOSPHATASE S/P/B 120 50 - 136 U/L 12/19/2021 6:07 AM [facility] ANION GAP 3.2(L) 5 - 15 MMOL/L 12/19/2021 6:07 AM [facility] BUN CREATININE RATIO 20.6 6 - 26 12/19/2021 6:07 AM [facility] A/G RATIO 0.6(L) 1.0 - 2.0 RATIO 12/19/2021 6:07 AM [facility] GFR ESTIMATE 67(L) >90 ML/MIN/1.7 3 M2 12/19/2021 6:07 AM [facility] Comment: NOTE: eGFR is not calculated for patients <18 years of age. This is an estimated GFR calculation using the new CKD EPI creatinine equation without race and so does not require a correction factor for race. This estimated GFR should not be used for calculating drug doses. 12/19/2021 5:30 AM CDT Eduardo Aguillon FILTER WORK[employer] LABORATORY Final Result [facility] [address] [place] [address], * (ABNORMAL) CBC W/DIFF AUTOMATED (12/19/2021 5:30 AM CDT) WBC 8.6 4.5 - 11.0 x10'3/uL 12/19/2021 5:41 AM CDT [facility] RBC 3.74(L) 4.20 - 5.40 x10'6/uL 12/19/2021 5:41 AM CDT [facility] HGB 11.3(L) 12.0 - 16.0 G/DL 12/19/2021 5:41 AM CDT [facility] HCT 33.7(L) 38.0 - 48.0 % 12/19/2021 5:41 AM CDT [facility] MCV 90.1 81.0 - 99.0 FL 12/19/2021 5:41 AM CDT [facility] MCH 30.2 27.0 - 31.0 PG 12/19/2021 5:41 AM CDT [facility] MCHC 33.5 32.0 - 36.0 G/DL 12/19/2021 5:41 AM CDT [facility] RDW 12.9 11.5 - 14.5 % 12/19/2021 5:41 AM CDT [facility] PLT 289 130 - 400 x10'3/uL 12/19/2021 5:41 AM CDT [facility] MPV 10.8 9.3 - 12.2 FL 12/19/2021 5:41 AM CDT [facility] DIFFERENTIAL TYPE AUTOMATED DIFFERENTIAL 12/19/2021 5:41 AM CDT [facility] NEUTROPHILS % 53.4 % 12/19/2021 5:41 AM CDT [facility] LYMPHOCYTES % 39.1 % 12/19/2021 5:41 AM CDT [facility] MONOCYTES % 5.7 % 12/19/2021 5:41 AM CDT [facility] EOSINOPHILS 0.9 % 12/19/2021 5:41 AM CDT [facility] BASOPHILS 0.5 % 12/19/2021 5:41 AM CDT [facility] IMMATURE GRANS % 0.4 % 12/20/19 5:41 AM CDT [facility] ABS. NEUTROPHILS TOTAL 4.57 1.80 - 7.70 x10'3/uL 12/19/2021 5:41 AM CDT [facility] ABS. LYMPHOCYTES 3.35 1.00 - 4.80 x10'3/uL 12/19/2021 5:41 AM CDT [facility] ABS. MONOCYTES 0.49 0.24 - 0.86 x10'3/uL 12/19/2021 5:41 AM CDT [facility] ABS. EOSINOPHILS 0.08 0.04 - 0.36 x10'3/uL 12/19/2021 5:41 AM CDT [facility] ABS. BASOPHILS 0.04 0.01 - 0.08 x10'3/uL 12/19/2021 5:41 AM CDT [facility] ABS. IMMATURE GRANULOCYTES 0.03 0.00 - 0.49 x10'3/uL 12/19/2021 5:41 AM CDT [facility] 12/19/2021 5:30 AM CDT Eduardo Aguillon APRN LABORATORY Final Result [facility] [address] [place] [address], [place] [phone] * Vancomycin Random Level (12/19/2021 5:30 AM CDT) VANCOMYCIN RANDOM 22.4 MCG/ML 12/19/2021 6:03 AM CDT [facility] Comment:NO THERAPEUTIC RANGE AVAILABLE VANCOMYCIN UNKNOWN LAST DOSE 12/19/2021 8:03 AM CDT [facility] 12/19/2021 5:30 AM CDT Eduardo Aguillon APRN LABORATORY Final Result Performing Organization Address City/[facility]/ZIP Co de Phone Number [facility] [address] [place] [address], [place] [phone] * MAGNESIUM (12/19/2021 5:30 AM CDT) MAGNESIUM 1.9 1.8 - 2.4 MG/DL 12/19/2021 6:07 AM CDT [facility] 12/19/2021 5:30 AM CDT Eduardo Aguillon APRN LABORATORY Final Result [facility] [address] [place] [address], [place] [phone] * POCT glucose (12/19/2021 1:14 AM CDT) GLUCOSE POC 93 70 - 99 mg/dL 12/19/2021 1:15 AM CDT [facility] 12/19/2021 1:14 AM CDT Eduardo Aguillon FILTER WORKER POCT ORDERABLES - DEVICE Final Result [facility] [address] [place] [address], [place] [phone] * (ABNORMAL) POCT glucose (12/19/2021 12:41 AM CDT) GLUCOSE POC 53(L) 70 - 99 mg/dL 12/19/2021 12:43 AM CDT [facility] 12/19/2021 12:4 1 AM CDT Eduardo Aguillon FILTER WORKER POCT ORDERABLES - DEVICE Final Result Performing Organization Address City/[facility]/ZIP Co de Phone Number [facility] [address] [place] [address], [place] [phone] * (ABNORMAL) POCT glucose (12/18/2021 9:14 PM CDT) GLUCOSE POC 114(H) 70 - 99 mg/dL 12/18/2021 9:17 PM CDT [facility] 12/18/2021 9:14 PM CDT Eduardo Aguillon FILTER WORKER POCT ORDERABLES - DEVICE Final Result [facility] [address] [place] [address], [place] [phone] * (ABNORMAL) POCT glucose (12/18/2021 5:51 PM CDT) GLUCOSE POC 112(H) 70 - 99 mg/dL 12/18/2021 7:07 PM CDT [facility] 12/18/2021 5:51 PM CDT Eduardo Aguillon FILTER WORKER POCT ORDERABLES - DEVICE Final Result [facility] [address] [place] [address], [place] [phone] * (ABNORMAL) POCT glucose (12/18/2021 12:29 PM CDT) GLUCOSE POC 133(H) 70 - 99 mg/dL 12/18/2021 1:05 PM CDT [facility] 12/18/2021 12:2 9 PM CDT Eduardo Aguillon APRN POCT ORDERABLES - DEVICE Final Result Performing Organization Address City/[facility] Co de Phone Number [facility] [address] [place] [address], [place] [phone] * (ABNORMAL) COMPREHENSIVE METABOLIC PANEL (12/18/2021 5:30 AM CDT) GLUCOSE 131(H) 70 - 99 MG/DL 12/18/2021 6:15 AM CDT [facility] BUN 19(H) 7 - 18 MG/DL 12/18/2021 6:15 AM CDT [facility] CREATININE S/P/B 0.99 0.55 - 1.02 MG/DL 12/18/2021 6:15 AM CDT [facility] SODIUM S/P/B 139 136 - 145 MMOL/L 12/18/2021 6:15 AM CDT [facility] POTASSIUM S/P/B 4.0 3.5 - 5.1 MMOL/L 12/18/2021 6:15 AM CDT [facility] CHLORIDE S/P/B 107 100 - 108 MMOL/L 12/18/2021 6:15 AM CDT [facility] CO2 27.0 21 - 32 MMOL/L 12/18/2021 6:15 AM CDT [facility] CALCIUM S/P/B 8.9 8.5 - 10.1 MG/DL 12/18/2021 6:15 AM CDT [facility] BILIRUBIN TOTAL S/P/B 0.2 0.2 - 1.2 MG/DL 12/18/2021 6:15 AM CDT [facility] Comment: THIS ASSAY IS NOT RECOMMENDED FOR PATIENTS UNDERGOING TREATMENT WITH ELTROMBOPAG DUE TO THE POTENTIAL FOR FALSELY ELEVATED RESULTS. TOTAL PROTEIN S/P/B 7.7 6.4 - 8.2 G/DL 12/18/2021 6:15 AM CDT [facility] ALBUMIN S/P/B 2.8(L) 3.4 - 5.0 G/DL 12/18/2021 6:15 AM CDT [facility] AST 13(L) 15 - 37 U/L 12/18/2021 6:15 AM CDT [facility] ALT 17 14 - 55 U/L 12/18/2021 6:15 AM CDT [facility] ALKALINE PHOSPHATASE S/P/B 118 50 - 136 U/L 12/18/2021 6:15 AM CDT [facility] ANION GAP 5.0 5 - 15 MMOL/L 12/18/2021 6:15 AM CDT [facility] BUN CREATININE RATIO 19.2 6 - 26 12/18/2021 6:15 AM CDT [facility] A/G RATIO 0.6(L) 1.0 - 2.0 RATIO 12/18/2021 6:15 AM CDT [facility] GFR ESTIMATE 69(L) >90 ML/MIN/1.7 3 M2 12/18/2021 6:15 AM CDT [facility] Comment: NOTE: eGFR is not calculated for patients <18 years of age. This is an estimated GFR calculation using the new CKD EPI creatinine equation without race and so does not require a correction factor for race. This estimated GFR should not be used for calculating drug doses. 12/18/2021 5:30 AM CDT Wanda Mercer FILTER WORKER LABORATORY Final Resul t [facility] [address] [place] [address], * (ABNORMAL) CBC W/DIFF AUTOMATED (12/18/2021 5:30 AM CDT) WBC 7.9 4.5 - 11.0 x10'3/uL 12/18/2021 5:57 AM CDT [facility] RBC 3.65(L) 4.20 - 5.40 x10'6/uL 12/18/2021 5:57 AM CDT [facility] HGB 11.1(L) 12.0 - 16.0 G/DL 12/18/2021 5:57 AM CDT [facility] HCT 32.6(L) 38.0 - 48.0 % 12/18/2021 5:57 AM CDT [facility] MCV 89.3 81.0 - 99.0 FL 12/18/2021 5:57 AM CDT [facility] MCH 30.4 27.0 - 31.0 PG 12/18/2021 5:57 AM CDT [facility] MCHC 34.0 32.0 - 36.0 G/DL 12/18/2021 5:57 AM CDT [facility] RDW 12.7 11.5 - 14.5 % 12/18/2021 5:57 AM CDT [facility] PLT 287 130 - 400 x10'3/uL 12/18/2021 5:57 AM CDT [facility] MPV 10.8 9.3 - 12.2 FL 12/18/2021 5:57 AM CDT [facility] DIFFERENTIAL TYPE AUTOMATED DIFFERENTIAL 12/18/2021 5:57 AM CDT [facility] NEUTROPHILS % 53.2 % 12/18/2021 5:57 AM CDT [facility] LYMPHOCYTES % 39.9 % 12/18/2021 5:57 AM CDT [facility] MONOCYTES % 5.0 % 12/18/2021 5:57 AM CDT [facility] EOSINOPHILS 1.3 % 12/18/2021 5:57 AM CDT [facility] BASOPHILS 0.5 % 12/18/2021 5:57 AM CDT [facility] IMMATURE GRANS % 0.1 % 12/19/19 5:57 AM CDT [facility] ABS. NEUTROPHILS TOTAL 4.18 1.80 - 7.70 x10'3/uL 12/18/2021 5:57 AM CDT [facility] ABS. LYMPHOCYTES 3.13 1.00 - 4.80 x10'3/uL 12/18/2021 5:57 AM CDT [facility] ABS. MONOCYTES 0.39 0.24 - 0.86 x10'3/uL 12/18/2021 5:57 AM CDT [facility] ABS. EOSINOPHILS 0.10 0.04 - 0.36 x10'3/uL 12/18/2021 5:57 AM CDT [facility] ABS. BASOPHILS 0.04 0.01 - 0.08 x10'3/uL 12/18/2021 5:57 AM CDT [facility] ABS. IMMATURE GRANULOCYTES 0.01 0.00 - 0.49 x10'3/uL 12/18/2021 5:57 AM CDT [facility] 12/18/2021 5:30 AM CDT Wanda Mercer APRN LABORATORY Final Resul t Performing Organization Address City/[facility]/ZIP Co de Phone Number [facility] [address] [place] [address], [place] [phone] * Vancomycin Random Level (12/18/2021 5:30 AM CDT) VANCOMYCIN RANDOM 22.9 MCG/ML 12/18/2021 6:15 AM CDT [facility] Comment:NO THERAPEUTIC RANGE AVAILABLE VANCOMYCIN UNKNOWN LAST DOSE 12/18/2021 6:39 AM CDT [facility] 12/18/2021 5:30 AM CDT Wanda Maynard MD LABORATORY Final Result Performing Organization Address City/[facility]/ZIP Co de Phone Number [facility] [address] [place] [address], [place] [phone] * (ABNORMAL) POCT glucose (12/17/2021 11:02 PM CDT) GLUCOSE POC 108(H) 70 - 99 mg/dL 12/17/2021 11:07 PM CDT [facility] 12/17/2021 11:0 2 PM CDT David Wolf PA-C POCT ORDERABLES - DEVICE Katheryn l Result [facility] [address] [place] [address], [place] [phone] * (ABNORMAL) POCT glucose (12/17/2021 10:28 PM CDT) GLUCOSE POC 67(L) 70 - 99 mg/dL 12/17/2021 10:30 PM CDT [facility] 12/17/2021 10:2 8 PM CDT David MARIE-C POCT ORDERABLES - DEVICE Katheryn l Result Performing Organization Address City/[facility]/ZIP Co de Phone Number [facility] [address] [place] [id number], [place] [phone] * (ABNORMAL) POCT glucose (12/17/2021 7:49 PM CDT) GLUCOSE POC 164(H) 70 - 99 mg/dL 12/17/2021 7:52 PM CDT [facility] 12/17/2021 7:49 PM CDT Davdi Schofiedl PA-C POCT ORDERABLES - DEVICE Katheryn l Result [facility] [address] [place] [id number], [place] [phone] * (ABNORMAL) POCT glucose (12/17/2021 5:12 PM CDT) GLUCOSE POC 187(H) 70 - 99 mg/dL 12/17/2021 7:52 PM CDT [facility] 12/17/2021 5:12 PM CDT David Schofield PA-C POCT ORDERABLES - DEVICE Katheryn l Result Performing Organization Address City/[facility]/ZIP Co de Phone Number [facility] [address] [place] [address], [place] [phone] * (ABNORMAL) POCT glucose (12/17/2021 12:54 PM CDT) GLUCOSE POC 139(H) 70 - 99 mg/dL 12/17/2021 12:56 PM CDT [facility] 12/17/2021 12:5 4 PM CDT David MARIE-C POCT ORDERABLES - DEVICE Katheryn l Result Performing Organization Address City/[facility] de Phone Number [address] [address], [place] [phone] * MRI FOOT RT WO CON (12/17/2021 12:18 PM CDT) Anatomical Region Laterality Modality Foot Magnetic Resonan ce 12/17/2021 12:4 7 PM CDT Impressions 12/17/2021 12:55 PM CDT IMPRESSION: 1. ??Mild osteomyelitis of the distal first phalanx. 2. ??Mild osteomyelitis of the middle and distal second digit phalanges. 3. ??No drainable fluid collection or abscess. 4. ??Dorsal foot subcutaneous edema. Referred By: ?? Interpreted By: Oj Ward DO, 12/17/2021 12:47 PM Narrative 12/17/2021 12:55 PM CDT EXAMINATION: MRI FOOT RT WO CON HISTORY: First and second digit soft tissue wound/ulcer is. ??Concern for osteomyelitis. COMPARISON: None. TECHNIQUE: Multisequence and multiplanar MR images of the right foot without the use of intravenous contrast. FINDINGS: There is a soft tissue wound/ulcer along the distal aspect of the great toe. ??There is mild osteomyelitis of the distal first phalanx. ??There is also a soft tissue wound/ulcer along the distal aspect of the second toe. ??There is mild osteomyelitis of the middle and distal second digit phalanges. ??No drainable fluid collection or abscess. ??No evidence of joint effusion. ??No other areas of involvement are seen. ??There are mild degenerative changes within the midfoot. ??There is an old fifth metatarsal fracture. ??There is dorsal foot subcutaneous edema. ?? Procedure Note Oj Ward DO - 12/17/2021 EXAMINATION: MRI FOOT RT WO CON HISTORY: First and second digit soft tissue wound/ulcer is. Concern forosteomyelitis. COMPARISON: None. TECHNIQUE: Multisequence and multiplanar MR images of the right foot without the useof intravenous contrast. FINDINGS: There is a soft tissue wound/ulcer along the distal aspect of the greattoe. There is mild osteomyelitis of the distal first phalanx. There isalso a soft tissue wound/ulcer along the distal aspect of the second toe.There is mild osteomyelitis of the middle and distal second digitphalanges. No drainable fluid collection or abscess. No evidence ofjoint effusion. No other areas of involvement are seen. There are milddegenerative changes within the midfoot. There is an old fifth metatarsalfracture. There is dorsal foot subcutaneous edema. IMPRESSION: 1. Mild osteomyelitis of the distal first phalanx. 2. Mild osteomyelitis of the middle and distal second digit phalanges. 3. No drainable fluid collection or abscess. 4. Dorsal foot subcutaneous edema. Referred By: Interpreted By: Oj Ward DO, 12/17/2021 12:47 PM Wanda Mercer [employer] MRI Final Resul t * MAGNESIUM (12/17/2021 6:10 AM CDT) MAGNESIUM 2.1 1.8 - 2.4 MG/DL 12/17/2021 8:54 AM CDT [facility] 12/17/2021 6:10 AM CDT David Schofield PA-C LABORATORY Final Result [facility] [address] [place] [address], [place] [phone] * (ABNORMAL) COMPREHENSIVE METABOLIC PANEL (12/17/2021 6:10 AM CDT) GLUCOSE 154(H) 70 - 99 MG/DL 12/17/2021 6:47 AM CDT [facility] BUN 17 7 - 18 MG/DL 12/17/2021 6:47 AM CDT [facility] CREATININE S/P/B 0.92 0.55 - 1.02 MG/DL 12/17/2021 6:47 AM CDT [facility] SODIUM S/P/B 137 136 - 145 MMOL/L 12/17/2021 6:47 AM CDT [facility] POTASSIUM S/P/B 3.9 3.5 - 5.1 MMOL/L 12/17/2021 6:47 AM CDT [facility] CHLORIDE S/P/B 105 100 - 108 MMOL/L 12/17/2021 6:47 AM CDT [facility] CO2 29.7 21 - 32 MMOL/L 12/17/2021 6:47 AM CDT [facility] CALCIUM S/P/B 9.2 8.5 - 10.1 MG/DL 12/17/2021 6:47 AM CDT [facility] BILIRUBIN TOTAL S/P/B 0.4 0.2 - 1.2 MG/DL 12/17/2021 6:47 AM T [facility] Comment: THIS ASSAY IS NOT RECOMMENDED FOR PATIENTS UNDERGOING TREATMENT WITH ELTROMBOPAG DUE TO THE POTENTIAL FOR FALSELY ELEVATED RESULTS. TOTAL PROTEIN S/P/B 8.2 6.4 - 8.2 G/DL 12/17/2021 6:47 AM T [facility] ALBUMIN S/P/B 3.1(L) 3.4 - 5.0 G/DL 12/17/2021 6:47 AM T [facility] AST 14(L) 15 - 37 U/L 12/17/2021 6:47 AM T [facility] ALT 20 14 - 55 U/L 12/17/2021 6:47 AM T [facility] ALKALINE PHOSPHATASE S/P/B 126 50 - 136 U/L 12/17/2021 6:47 AM T [facility] ANION GAP 2.3(L) 5 - 15 MMOL/L 12/17/2021 6:47 AM [facility] BUN CREATININE RATIO 18.5 6 - 26 12/17/2021 6:47 AM [facility] A/G RATIO 0.6(L) 1.0 - 2.0 RATIO 12/17/2021 6:47 AM [facility] GFR ESTIMATE 76(L) >90 ML/MIN/1.7 3 M2 12/17/2021 6:47 AM [facility] Comment: NOTE: eGFR is not calculated for patients <18 years of age. This is an estimated GFR calculation using the new CKD EPI creatinine equation without race and so does not require a correction factor for race. This estimated GFR should not be used for calculating drug doses. 12/17/2021 6:10 AM CDT Wanda Mercer FILTER WORKER LABORATORY Final Resul t [facility] [address] [place] [address], [place] [phone] * (ABNORMAL) CBC W/DIFF AUTOMATED (12/17/2021 6:10 AM CDT) WBC 7.9 4.5 - 11.0 x10'3/uL 12/17/2021 6:35 AM CDT [facility] RBC 3.99(L) 4.20 - 5.40 x10'6/uL 12/17/2021 6:35 AM CDT [facility] HGB 12.2 12.0 - 16.0 G/DL 12/17/2021 6:35 AM CDT [facility] HCT 36.2(L) 38.0 - 48.0 % 12/17/2021 6:35 AM CDT [facility] MCV 90.7 81.0 - 99.0 FL 12/17/2021 6:35 AM CDT [facility] MCH 30.6 27.0 - 31.0 PG 12/17/2021 6:35 AM CDT [facility] MCHC 33.7 32.0 - 36.0 G/DL 12/17/2021 6:35 AM CDT [facility] RDW 12.8 11.5 - 14.5 % 12/17/2021 6:35 AM CDT [facility] PLT 292 130 - 400 x10'3/uL 12/17/2021 6:35 AM CDT [facility] MPV 10.9 9.3 - 12.2 FL 12/17/2021 6:35 AM CDT [facility] DIFFERENTIAL TYPE AUTOMATED DIFFERENTIAL 12/17/2021 6:35 AM CDT [facility] NEUTROPHILS % 54.5 % 12/17/2021 6:35 AM CDT [facility] LYMPHOCYTES % 38.5 % 12/17/2021 6:35 AM CDT [facility] MONOCYTES % 5.2 % 12/17/2021 6:35 AM CDT [facility] EOSINOPHILS 1.1 % 12/17/2021 6:35 AM CDT [facility] BASOPHILS 0.4 % 12/17/2021 6:35 AM CDT [facility] IMMATURE GRANS % 0.3 % 12/18/19 6:35 AM CDT [facility] ABS. NEUTROPHILS TOTAL 4.33 1.80 - 7.70 x10'3/uL 12/17/2021 6:35 AM CDT [facility] ABS. LYMPHOCYTES 3.06 1.00 - 4.80 x10'3/uL 12/17/2021 6:35 AM CDT [facility] ABS. MONOCYTES 0.41 0.24 - 0.86 x10'3/uL 12/17/2021 6:35 AM CDT [facility] ABS. EOSINOPHILS 0.09 0.04 - 0.36 x10'3/uL 12/17/2021 6:35 AM CDT [facility] ABS. BASOPHILS 0.03 0.01 - 0.08 x10'3/uL 12/17/2021 6:35 AM CDT [facility] ABS. IMMATURE GRANULOCYTES 0.02 0.00 - 0.49 x10'3/uL 12/17/2021 6:35 AM T [facility] 12/17/2021 6:10 AM CDT Wanda Mercer FILTER WORKER LABORATORY Final Resul t Performing Organization Address [facility] Co de Phone Number [facility] [address] [place] [phone], * (ABNORMAL) Bedside Blood Glucose (12/16/2021 10:21 PM CDT) GLUCOSE WHOLE BLOOD 227(A) 70 - 100 mg/dL Wanda Mercer FILTER WORKER NURSING TREATMENT ORDERABLE S - ONCE OR INTERVALS Final Result * (ABNORMAL) POCT glucose (12/16/2021 10:18 PM CDT) GLUCOSE POC 277(H) 70 - 99 mg/dL 12/16/2021 10:21 PM CDT [facility] 12/16/2021 10:1 8 PM CDT Wanda Maynard MD POCT ORDERABLES - DEVICE Fin al Result Performing Organization Address [facility] Co de Phone Number [facility] [address] [place] [phone], * XR FOOT LT 2V (12/16/2021 8:01 PM CDT) Anatomical Region Laterality Modality Foot Radiographic Shelli ging 12/16/2021 8:06 PM CDT Impressions 12/16/2021 8:09 PM CDT IMPRESSION: 1. ??No acute osseous abnormality is identified. 2. ??Status post second and third toe amputations. 3. ??Mild soft tissue swelling of the left foot. Ordered By: WANDA MERCER Interpreted By: Mercy Irving MD, 12/16/2021 8:06 PM Narrative 12/16/2021 8:09 PM CDT PROCEDURE: ??XR FOOT LT 2V HISTORY: Left foot pain. ?? COMPARISON: ??X-ray right foot TECHNIQUE: ??AP, lateral and oblique rotated views of the left foot were obtained. FINDINGS: ?? There is no acute fracture or osseous malalignment identified. There are postsurgical changes from prior second and third toe amputations. Degenerative changes of the left midfoot is present. The joint spaces are maintained. There is a moderate plantar calcaneal enthesophyte. Mild soft swelling of the foot. Procedure Note Mercy Irving MD - 12/16/2021 PROCEDURE: XR FOOT LT 2V HISTORY: Left foot pain. COMPARISON: X-ray right foot TECHNIQUE: AP, lateral and oblique rotated views of the left foot wereobtained. FINDINGS: There is no acute fracture or osseous malalignment identified. There arepostsurgical changes from prior second and third toe amputations.Degenerative changes of the left midfoot is present. The joint spaces aremaintained. There is a moderate plantar calcaneal enthesophyte. Mild softswelling of the foot. IMPRESSION: 1. No acute osseous abnormality is identified. 2. Status post second and third toe amputations. 3. Mild soft tissue swelling of the left foot. Ordered By: WANDA MERCER Interpreted By: Mercy Irving MD, 12/16/2021 8:06 PM us Wanda Mercer FILTER WORKER GENERAL IMAGING Final Resul t * XR ABD KUB (12/16/2021 8:00 PM CDT) Anatomical Region Laterality Modality Abdomen Radiographic Shelli ging 12/16/2021 8:04 PM CDT Impressions 12/16/2021 8:06 PM CDT IMPRESSION: 1. ??No radiographic evidence of bowel obstruction. 2. ??Mild fecal burden is seen within the colon. Ordered By: WANDA MERCER Interpreted By: Mercy Irving MD, 12/16/2021 8:04 PM Narrative 12/16/2021 8:06 PM CDT HISTORY: ??no BM in 5 days; n/v ?? TECHNIQUE: ??Supine image(s) of the abdomen and pelvis were obtained on 12/16/2001 at 1949 hours. COMPARISON: None. FINDINGS: LINES OR TUBES: None LUNG BASES: Unremarkable. BOWEL GAS PATTERN: There are no abnormally dilated loops of bowel. Multiple scattered tablets are throughout the abdomen FREE AIR: No free air is detected on this supine exam. CALCIFICATIONS/OTHER: None MUSCULOSKELETAL: ??The osseous structures are unremarkable. Procedure Note Mercy Irving MD - 12/16/2021 HISTORY: no BM in 5 days; n/v TECHNIQUE: Supine image(s) of the abdomen and pelvis were obtained on12/16/2001 at 1949 hours. COMPARISON: None. FINDINGS: LINES OR TUBES: None LUNG BASES: Unremarkable. BOWEL GAS PATTERN: There are no abnormally dilated loops of bowel.Multiple scattered tablets are throughout the abdomen FREE AIR: No free air is detected on this supine exam. CALCIFICATIONS/OTHER: None MUSCULOSKELETAL: The osseous structures are unremarkable. IMPRESSION: 1. No radiographic evidence of bowel obstruction. 2. Mild fecal burden is seen within the colon. Ordered By: WANDA MERCER Interpreted By: Mercy Irving MD, 12/16/2021 8:04 PM Wanda Mercer FILTER WORKER GENERAL IMAGING Final Resul t * (ABNORMAL) MAGNESIUM (12/16/2021 7:00 PM CDT) MAGNESIUM 1.6(L) 1.8 - 2.4 MG/DL 12/16/2021 7:45 PM CDT [facility] 12/16/2021 7:00 PM CDT Wanda Maynard MD LABORATORY Final Result [facility] [address] [place] [address], [place] [phone] * (ABNORMAL) Bedside Blood Glucose (12/16/2021 6:50 PM CDT) GLUCOSE WHOLE BLOOD 179(A) 70 - 100 mg/dL Wanda Mercer FILTER WORKER NURSING TREATMENT ORDERABLE S - ONCE OR INTERVALS Final Result * (ABNORMAL) POCT glucose (12/16/2021 6:49 PM CDT) GLUCOSE POC 179(H) 70 - 99 mg/dL 12/16/2021 7:03 PM CDT [facility] 12/16/2021 6:49 PM CDT Wanda Maynard MD POCT ORDERABLES - DEVICE Fin al Result Performing Organization Address [facility] Co de Phone Number [facility] [address] [place] [address], [place] [phone] * PARTIAL THROMBOPLASTIN TIME,PTT (12/16/2021 6:34 PM CDT) PTT 26.5 25.1 - 36.5 SEC 12/16/2021 7:31 PM CDT [facility] 12/16/2021 6:34 PM CDT Desiree Mackenzie MD LABORATORY Final Re sult [facility] [address] [place] [address], [place] [phone] * PROTIME/INR, VENOUS (12/16/2021 6:34 PM CDT) PROTIME 11.9 10.2 - 12.9 SEC 12/16/2021 7:31 PM CDT [facility] INR 1.0 12/16/2021 7:31 PM CDT [facility] Comment: Recommended INR Therapeutic Goals: ??2.0-3.0 Routine Therapy ??2.5-3.5 Mechanical Prosthetic Valves (High Risk) 12/16/2021 6:34 PM CDT Desiree Mackenzie MD LABORATORY Final Re sult [facility] [address] [place] [address], [place] [phone] * Thrombin Time (12/16/2021 6:33 PM CDT) THROMBIN TIME 19 13 - 19 sec 12/21/2021 3:48 AM CDT [facility] Comment: Test Performed by [facility], [facility], [address] [place], [place] Mehrdad You M.D., Ph.D., Director of Laboratories , CLIA [id number] 12/16/2021 6:33 PM CDT Wanda Maynard MD LABORATORY Final Result Performing Organization Address City/[facility]/ZIP Co de Phone Number [facility] [address] [place] [address], [place] [phone] * ANTITHROMBIN III ACTIVITY (12/16/2021 6:33 PM CDT) ANTITHROMBIN III ACTIVITY 132 80 - 135 % normal 12/21/2021 3:48 AM CDT [facility] Comment: Test Performed by [facility], [facility], [address] [place], [place] Mehrdad You M.D., Ph.D., Director of Laboratories , CLIA [id number] 12/16/2021 6:33 PM CDT Wanda Maynard MD LABORATORY Final Result [facility] [address] [place], [place] , [place] [phone] * CULTURE, BACTERIA, BLOOD (12/16/2021 6:15 PM CDT) SPEC DESCRIPTION BLOOD 12/16/2021 5:50 PM CDT [facility] SPECIAL REQUESTS NO SPECIAL REQUEST 12/16/2021 5:50 PM CDT [facility] CULTURE RESULT NO GROWTH 5 DAYS 12/21/2021 11:39 AM CDT [facility] BLOOD SPECIMEN OBTAINED FOR BLOOD CULTURE / Unknown 12/16/2021 6:15 PM CDT 12/16/2021 7:09 PM CDT Wanda Mercer APRN MICROBIOLOGY - GENERAL ORDE RABLES Final Result [facility] [address] [place] [address], [place] [phone] * CULTURE, BACTERIA, BLOOD (12/16/2021 6:15 PM CDT) SPEC DESCRIPTION BLOOD 12/16/2021 5:50 PM CDT [facility] SPECIAL REQUESTS NO SPECIAL REQUEST 12/16/2021 5:50 PM CDT [facility] CULTURE RESULT NO GROWTH 5 DAYS 12/21/2021 11:39 AM CDT [facility] BLOOD SPECIMEN OBTAINED FOR BLOOD CULTURE / Unknown 12/16/2021 6:15 PM CDT 12/16/2021 7:09 PM CDT Wanda Mercer APRN MICROBIOLOGY - GENERAL ORDE RABLES Final Result [facility] [address] [place] [address], * ECG 12 lead (12/16/2021 3:41 PM CDT) 12/16/2021 3:41 PM CDT Narrative [facility] - 12/16/2021 9:05 PM CDT ?[facility] [address] [facility] [place] ? Test Date: ?2021-12-16 Pat Name: ? TYSON MCNEAL ?Department: ?? 41 ? Room: ? 4 Gender: ? Female ? 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 : ?1970 ? Requested By: DESIREE MACKENZIE Order Number: [id number] ? Reading : ?? Carroll Varela ? Measurements Intervals ?[place] ? Rate: ? 89 ? P: ?34 AR: ? 160 ?QRS: ?15 QRSD: ? 87 ? T: ?102 QT: ? 364 ? QTc: ?445 ? 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1970 Requested By: DESIREE MACKENZIE Order Number: [id number] Reading MD: Carroll Varela Measurements Intervals [place] Rate: 89 P: 34 AR: 160 QRS: 15 QRSD: 87 T: 102 QT: 364 QTc: 445 Interpretive Statements SINUS RHYTHM MINIMAL VOLTAGE CRITERIA FOR LVH, CONSIDER NORMAL VARIANT [MEETS CRITERIAIN ONE OF: R(aVL), S(V1), R(V5), R(V5/V6)+S(V1)] NONSPECIFIC T-WAVE ABNORMALITY Compared to ECG 07/10/2021 14:18:26 Ventricular premature complex(es) no longer present T-wave abnormality still present us Desiree Mackenzie MD ECG ORDERABLES Final Re sult [facility] * USV ART REST W ADRIANA LOW EXT (12/16/2021 3:11 PM CDT) Anatomical Region Laterality Modality Extremity Vascular Ultraso und 12/16/2021 2:52 PM CDT Narrative 12/17/2021 10:33 PM CDT ?ARTERIAL DOPPLER - ADRIANA ?BILATERAL LOWER EXTREMITY ? VASCULAR LAB Pat.Name: ??TYSON MCNEAL ?Pat.ID: ?[id number] ? St.Date: ?? 12/16/2021 ?Refer.: ??Yasmin Segura ? Exam Time: 2:52:00 PM ? Study Type:MARINO VS Arterial Doppler Legs NOHEMY Height: ?66in ?Age: ??1970,51Y ? Sex: ? FEMALE ?Sonogrphr: Shahla Toscano, RDMS, RVT Pat. Stat.:Outpatient ?Room: ?ER ? History / Clinical:Rt foot wounds. L>R severe leg pain. Lt foot cool to touch with weak pulse. PMH- DM. HTN. HLD. neurop. L2, L3 amp. BMI 39. Prior 06/21/21- Rt 1.12, Lt 1.24 Procedures: Doppler waveforms, Digit PPG, Systolic Pressures w/ADRIANA Race: ?-Congolese ? ++++++++++++++++++++++++++++++++++++ SUMMARY: ++++++++++++++++++++++++++++++++++++ Joceline ADRIANA Criteria: [...] ??Posterior Tibial triphasic, medium amplitude with ADRIANA 0.959 ; ??DP/Anterior Tibial triphasic, high amplitude with ADRIANA 0.959 . ??Digit flow by PPG is not assessed due to wound with bandages. Left leg: ??Common Femoral waveform is triphasic, high amplitude; Popliteal biphasic, high amplitude; ??Posterior Tibial biphasic, medium amplitude with ADRIANA 0.973 ; ??DP/Anterior Tibial biphasic, medium amplitude with ADRIANA 1.08 . ??Digit flow by PPG is low amplitude with DBI 0.676 . Compared to previous exam done 06/21/2021 , there is no significant change. CONCLUSION: ?? ADRIANA right leg 0.96, with toe index N/A, in the range of mild ischemia, asymptomatic PAD. ?? ADRIANA left leg 1.08, with toe index 0.676 , in the range of no ischemia. Waveforms suggestive of femoral-popliteal disease. Recommend follow up as symptoms warrant. ++++++++++++++++++++++++++++++++++++ FINDINGS: ++++++++++++++++++++++++++++++++++++ ++++++++++++++++++++++++++++++++++++ MEASUREMENTS: ++++++++++++++++++++++++++++++++++++ ?DOPPLER Left E COMMERCE ARCHITECT ?? E COMMERCE ARCHITECT PSV ?123 cm/s ? Left Dist Pop A ?? Dist Pop A PSV ??94.2 cm/s ? Left Dist HORSE FARM MANAGER ?? Dist HORSE FARM MANAGER PSV ?46.2 cm/s ? Left Dist DOMINGA ?? Dist DOMINGA PSV ?56.5 cm/s ? Right E COMMERCE ARCHITECT ?? E COMMERCE ARCHITECT PSV ?145 cm/s ? Right Dist Pop A ?? Dist Pop A PSV ?? 107 cm/s ? Right Dist HORSE FARM MANAGER ?? Dist HORSE FARM MANAGER PSV ?56.5 cm/s ? Right Dist DOMINGA ?? Dist DOMINGA PSV ?82.8 cm/s ?PRESSURES Right Brachial ?? Brach P ?148 mmHg ? Right Ankle DP ?? AnkleDP P ?142 mmHg ? Right Ankle PT ?? AnklePT P ?142 mmHg ? Right ADRIANA PT ?? ADRIANA PT ? 0.959 ? Right ADRIANA DP ?? ADRIANA DP ? 0.959 ? Left Brachial ?? Brach P ?140 mmHg ? Left Ankle DP ?? AnkleDP P ?160 mmHg ? Left Ankle PT ?? AnklePT P ?144 mmHg ? Left Great Toe ?? GreatToe P ? 100 mmHg ? Left ADRIANA PT ?? ADRIANA PT ? 0.973 ? Left ADRIANA DP ?? ADRIANA DP ?1.08 ? Left TBI ?? TBI ?0.676 ? Signed 12/17/2021 10:33 PM Hubert Hernandez M.D. Procedure Note Hubert Hernandez MD - 12/17/2021 ARTERIAL DOPPLER - ADRIANA BILATERAL LOWER EXTREMITY VASCULAR LAB Pat.Name: TYSON MCNEAL Pat.ID: [id number] .Date: 12/16/2021 Refer.MD: Yasmin Segura Exam Time: 2:52:00 PM Study Type:MARINO VS Arterial Doppler Legs NOHEMY Height: 66in Age: 2 1970,51Y Sex: FEMALE Sonogrphr: Shahla Toscano RDMS, RVT Pat. Stat.:Outpatient Room: ER History / Clinical:Rt foot wounds. L>R severe leg pain. Lt foot cool to touch with weak pulse. PMH- DM. HTN. HLD. neurop. L2, L3 amp. BMI 39. Prior 06/21/21- Rt 1.12, Lt 1.24 Procedures: Doppler waveforms, Digit PPG, Systolic Pressures w/ADRIANA Race: -Congolese ++++++++++++++++++++++++++++++++++++ SUMMARY: ++++++++++++++++++++++++++++++++++++ Joceline ADRIANA Criteria: >1.30 [...] Posterior Tibial triphasic, medium amplitude with ADRIANA 0.959 ; DP/Anterior Tibial triphasic, high amplitude with ADRIANA 0.959 . Digit flow by PPG is not assessed due to wound with bandages. Left leg: Common Femoral waveform is triphasic, high amplitude; Popliteal biphasic, high amplitude; Posterior Tibial biphasic, medium amplitude with ADRIANA 0.973 ; DP/Anterior Tibial biphasic, medium amplitude with ADRIANA 1.08 . Digit flow by PPG is low amplitude with DBI 0.676 . Compared to previous exam done 06/21/2021 , there is no significant change. CONCLUSION: ADRIANA right leg 0.96, with toe index N/A, in the range of mild ischemia, asymptomatic PAD. ADRIANA left leg 1.08, with toe index 0.676 , in the range of no ischemia. Waveforms suggestive of femoral-popliteal disease. Recommend follow up as symptoms warrant. ++++++++++++++++++++++++++++++++++++ FINDINGS: ++++++++++++++++++++++++++++++++++++ ++++++++++++++++++++++++++++++++++++ MEASUREMENTS: ++++++++++++++++++++++++++++++++++++ DOPPLER Left E COMMERCE ARCHITECT E COMMERCE ARCHITECT PSV 123 cm/s Left Dist Pop A Dist Pop A PSV 94.2 cm/s Left Dist HORSE FARM MANAGER Dist HORSE FARM MANAGER PSV 46.2 cm/s Left Dist DOMINGA Dist DOMINGA PSV 56.5 cm/s Right E COMMERCE ARCHITECT E COMMERCE ARCHITECT PSV 145 cm/s Right Dist Pop A Dist Pop A PSV 107 cm/s Right Dist HORSE FARM MANAGER Dist HORSE FARM MANAGER PSV 56.5 cm/s Right Dist DOMINGA Dist DOMINGA PSV 82.8 cm/s PRESSURES Right Brachial Brach P 148 mmHg Right Ankle DP AnkleDP P 142 mmHg Right Ankle PT AnklePT P 142 mmHg Right ADRIANA PT ADRIANA PT 0.959 Right ADRIANA DP ADRIANA DP 0.959 Left Brachial Brach P 140 mmHg Left Ankle DP AnkleDP P 160 mmHg Left Ankle PT AnklePT P 144 mmHg Left Great Toe GreatToe P 100 mmHg Left ADRIANA PT ADRIANA PT 0.973 Left ADRIANA DP ADRIANA DP 1.08 Left TBI TBI 0.676 Signed 12/17/2021 10:33 PM Hubert Hernandez M.D. Desiree Mackenzie MD [facility] Final Re sult * XR MULTI TOE RT (12/16/2021 2:45 PM CDT) Anatomical Region Laterality Modality Foot Radiographic Shelli ging 12/16/2021 2:50 PM CDT Impressions 12/16/2021 2:59 PM CDT IMPRESSION: No appreciable fracture, dislocation, periosteal reaction, or acute bony erosion. If clinical concern for osteomyelitis, MRI is a more sensitive test. Ordered By: DESIREE MACKENZIE Interpreted By: Angelito Tidwell, 12/16/2021 2:50 PM Narrative 12/16/2021 2:59 PM CDT IMAGING STUDIES: XR MULTI TOE RT ? DATE: ??12/16/2021 2:26 PM HISTORY: ??diabetic ulcers to right first and second toes ? 51-year-old female with diabetic ulcers of the right foot first and second toes. Reported ulcerations along the dorsal aspect of the right first toe and volar aspect of the right second toe and debrided. Additional history of increasing leg pain, left greater than right, with cool feet and weak pulses. COMPARISON: ??Right foot 01/17/2021. DISCUSSION: AP, oblique, and lateral views of the right foot. The posterior foot is excluded on lateral view. Subtle lucency along the distal medial aspect of the great toe near the level of the nailbed and of the medial tip of the second digit. On lateral view, small defect along the plantar aspect of the great toe distal phalanx but stable from 2020 study. No appreciable new fracture or erosion. No appreciable acute periosteal reaction. Maintained great toe interphalangeal joint space and second digit interphalangeal joint spaces. Old healed fracture of the proximal fifth metatarsal. Moderate degenerative changes in the midfoot. Plantar calcaneal spur. Atherosclerotic calcification in the distal leg and in the foot, including the digital arteries. Procedure Note Angelito Tidwell MD - 12/16/2021 IMAGING STUDIES: XR MULTI TOE RTDATE: 12/16/2021 2:26 PM HISTORY: diabetic ulcers to right first and second toes [id number] with diabetic ulcers of the right foot first and second toes.Reported ulcerations along the dorsal aspect of the right first toe andvolar aspect of the right second toe and debrided. Additional history ofincreasing leg pain, left greater than right, with cool feet and weakpulses. COMPARISON: Right foot 01/17/2021. DISCUSSION: AP, oblique, and lateral views of the right foot. The posterior foot isexcluded on lateral view. Subtle lucency along the distal medial aspect of the great toe near thelevel of the nailbed and of the medial tip of the second digit. On lateral view, small defect along the plantar aspect of the great toedistal phalanx but stable from 2020 study. No appreciable new fracture or erosion. No appreciable acute periostealreaction. Maintained great toe interphalangeal joint space and seconddigit interphalangeal joint spaces. Old healed fracture of the proximal fifth metatarsal. Moderatedegenerative changes in the midfoot. Plantar calcaneal spur. Atherosclerotic calcification in the distal leg and in the foot, includingthe digital arteries. IMPRESSION: No appreciable fracture, dislocation, periosteal reaction, or acute bonyerosion. If clinical concern for osteomyelitis, MRI is a more sensitivetest. Ordered By: DESIREE MACKENZIE Interpreted By: Angelito Tidwell, 12/16/2021 2:50 PM us Desiree Mackenzie MD GENERAL IMAGING Final Re sult * TROPONIN, QUANT (12/16/2021 2:25 PM CDT) TROPONIN I HIGH SENSITIVITY 7 <54 ng/L 12/16/2021 8:31 PM CDT [facility] Comment: HIGH DOSES OF BIOTIN, TROPONIN-SPECIFIC AUTOANTIBODIES, AND ANTIBODY THERAPY CONTAINING HAMA MAY INTERFERE WITH THIS TEST RESULT. CORRELATION TO CLINICAL HISTORY AND PRESENTATION RECOMMENDED. 12/16/2021 2:25 PM CDT Wanda Mercer APRN LABORATORY Final Resul t Performing Organization Address City/[facility]/ZIP Co de Phone Number [facility] [address] [place] [address], [place] [phone] * (ABNORMAL) SED RATE, ERYTHROCYTE (ESR) (12/16/2021 2:25 PM CDT) ESR 70(H) <20 MM/HR 12/16/2021 6:31 PM CDT [facility] Comment:Testing performed on [employer] iSED. 12/16/2021 2:25 PM CDT Desiree Mackenzie MD LABORATORY Final Re sult Performing Organization Address City/[facility]/ZIP Co de Phone Number [facility] [address] [place] [address], [place] [phone] * CK (CPK) (12/16/2021 2:20 PM CDT) CPK 185 21 - 215 U/L 12/16/2021 6:34 PM CDT [facility] 12/16/2021 2:20 PM CDT us Wanda Mercer APRN LABORATORY Final Resul t Performing Organization Address City/[facility]/ZIP Co de Phone Number [facility] [address] [place] [address], [place] [phone] * PHOSPHORUS, INORGANIC PHOSPHATE (12/16/2021 2:20 PM CDT) PHOSPHORUS 4.0 2.5 - 4.9 MG/DL 12/16/2021 6:34 PM CDT [facility] 12/16/2021 2:20 PM CDT Wanda Trujillo Kian FILTER WORKER LABORATORY Final Resul t [facility] [address] [place] [address], [place] [phone] * (ABNORMAL) MAGNESIUM (12/16/2021 2:20 PM CDT) MAGNESIUM <0.3(LL) 1.8 - 2.4 MG/DL 12/16/2021 6:34 PM CDT [facility] Comment:ZL CALLED CRITICAL R ESULTS AT 16Dec2021 TO AND READ BACK BY CARLOS MERCEDES 12/16/2021 2:20 PM CDT Wanda Ronnie Kian JAIME LABORATORY Final Resul t Performing Organization Address City/[facility]/ZIP Co de Phone Number [facility] [address] [place] [address], * (ABNORMAL) C-REACTIVE PROTEIN (12/16/2021 2:20 PM CDT) C-REACTIVE PROTEIN 3.03(H) <0.29 mg/dL 12/16/2021 6:34 PM CDT [facility] 12/16/2021 2:20 PM CDT Desiree Mackenzie MD LABORATORY Final Re sult [facility] [address] [place] [address], [place] [phone] * (ABNORMAL) COMPREHENSIVE METABOLIC PANEL (12/16/2021 2:20 PM CDT) [facility] GLUCOSE 141(H) 70 - 99 MG/DL 12/16/2021 2:53 PM CDT [facility] BUN 15 7 - 18 MG/DL 12/16/2021 2:53 PM CDT [facility] CREATININE S/P/B 1.00 0.55 - 1.02 MG/DL 12/16/2021 2:53 PM CDT [facility] SODIUM S/P/B 137 136 - 145 MMOL/L 12/16/2021 2:53 PM CDT [facility] POTASSIUM S/P/B 3.3(L) 3.5 - 5.1 MMOL/L 12/16/2021 2:53 PM CDT [facility] CHLORIDE S/P/B 104 100 - 108 MMOL/L 12/16/2021 2:53 PM CDT [facility] CO2 28.5 21 - 32 MMOL/L 12/16/2021 2:53 PM CDT [facility] CALCIUM S/P/B 9.8 8.5 - 10.1 MG/DL 12/16/2021 2:53 PM CDT [facility] [facility] BILIRUBIN TOTAL S/P/B 0.4 0.2 - 1.2 MG/DL 12/16/2021 2:53 PM CDT [facility] Comment: THIS ASSAY IS NOT RECOMMENDED FOR PATIENTS UNDERGOING TREATMENT WITH ELTROMBOPAG DUE TO THE POTENTIAL FOR FALSELY ELEVATED RESULTS. TOTAL PROTEIN S/P/B 9.8(H) 6.4 - 8.2 G/DL 12/16/2021 2:53 PM CDT [facility] ALBUMIN S/P/B 3.6 3.4 - 5.0 G/DL 12/16/2021 2:53 PM CDT [facility] AST 17 15 - 37 U/L 12/16/2021 2:53 PM CDT [facility] ALT 23 14 - 55 U/L 12/16/2021 2:53 PM CDT [facility] ALKALINE PHOSPHATASE S/P/B 146(H) 50 - 136 U/L 12/16/2021 2:53 PM CDT [facility] ANION GAP 4.5(L) 5 - 15 MMOL/L 12/16/2021 2:53 PM CDT [facility] BUN CREATININE RATIO 15.0 6 - 26 12/16/2021 2:53 PM CDT [facility] A/G RATIO 0.6(L) 1.0 - 2.0 RATIO 12/16/2021 2:53 PM CDT [facility] GFR ESTIMATE 69(L) >90 ML/MIN/1.7 3 M2 12/16/2021 2:53 PM CDT [facility] Comment: NOTE: eGFR is not calculated for patients <18 years of age. This is an estimated GFR calculation using the new CKD EPI creatinine equation without race and so does not require a correction factor for race. This estimated GFR should not be used for calculating drug doses. 12/16/2021 2:20 PM CDT Desiree Mackenzie MD LABORATORY Final Re sult [facility] [address] [place] [address], [place] [phone] * (ABNORMAL) CBC W/DIFF AUTOMATED (12/16/2021 2:20 PM CDT) WBC 12.1(H) 4.5 - 11.0 x10'3/uL 12/16/2021 2:34 PM CDT [facility] RBC 4.37 4.20 - 5.40 x10'6/uL 12/16/2021 2:34 PM CDT [facility] HGB 13.3 12.0 - 16.0 G/DL 12/16/2021 2:34 PM CDT [facility] HCT 39.7 38.0 - 48.0 % 12/16/2021 2:34 PM CDT [facility] MCV 90.8 81.0 - 99.0 FL 12/16/2021 2:34 PM CDT [facility] MCH 30.4 27.0 - 31.0 PG 12/16/2021 2:34 PM CDT [facility] MCHC 33.5 32.0 - 36.0 G/DL 12/16/2021 2:34 PM CDT [facility] RDW 12.8 11.5 - 14.5 % 12/16/2021 2:34 PM CDT [facility] PLT 326 130 - 400 x10'3/uL 12/16/2021 2:34 PM CDT [facility] MPV 10.9 9.3 - 12.2 FL 12/16/2021 2:34 PM CDT [facility] DIFFERENTIAL TYPE AUTOMATED DIFFERENTIAL 12/16/2021 2:34 PM CDT [facility] NEUTROPHILS % 65.6 % 12/16/2021 2:34 PM CDT [facility] LYMPHOCYTES % 29.9 % 12/16/2021 2:34 PM CDT [facility] MONOCYTES % 3.1 % 12/16/2021 2:34 PM CDT [facility] EOSINOPHILS 0.7 % 12/16/2021 2:34 PM CDT [facility] BASOPHILS 0.4 % 12/16/2021 2:34 PM CDT [facility] IMMATURE GRANS % 0.3 % 12/17/19 2:34 PM CDT [facility] ABS. NEUTROPHILS TOTAL 7.90(H) 1.80 - 7.70 x10'3/uL 12/16/2021 2:34 PM CDT [facility] ABS. LYMPHOCYTES 3.61 1.00 - 4.80 x10'3/uL 12/16/2021 2:34 PM CDT [facility] ABS. MONOCYTES 0.37 0.24 - 0.86 x10'3/uL 12/16/2021 2:34 PM CDT [facility] ABS. EOSINOPHILS 0.09 0.04 - 0.36 x10'3/uL 12/16/2021 2:34 PM CDT [facility] ABS. BASOPHILS 0.05 0.01 - 0.08 x10'3/uL 12/16/2021 2:34 PM CDT [facility] ABS. IMMATURE GRANULOCYTES 0.04 0.00 - 0.49 x10'3/uL 12/16/2021 2:34 PM CDT [facility] 12/16/2021 2:20 PM CDT Desiree Mackenzie MD LABORATORY Final Re sult [facility] [address] [place] [address], * PROCALCITONIN (PCT) (12/16/2021 2:07 PM CDT) Procalcitonin <0.05 <0.5 NG/ML 12/16/2021 3:33 PM CDT [facility] 12/16/2021 2:07 PM CDT Desiree Mackenzie MD LABORATORY Final Re sult [facility] [address] [place] [address], [place] [phone] documented in this encounter Visit Diagnoses Diagnosis Diabetic foot infection ([facility])- Primary Type II or unspecified type diabetes mellitus with other specified manifestations, not stated as uncontrolled Hypokalemia Hypopotassemia Diabetic foot ulcer ([facility]) Type II or unspecified type diabetes mellitus with other specified manifestations, not stated as uncontrolled Diabetic foot infection ([facility]) Type II or unspecified type diabetes mellitus with other specified manifestations, not stated as uncontrolled documented in this encounter Admitting Diagnoses Diagnosis Diabetic foot infection ([facility]) Type II or unspecified type diabetes mellitus with other specified manifestations, not stated as uncontrolled documented in this encounter Administered Medications Inactive Administered Medications - up to 3 most recent administrations Medication Order MAR Action Action Date Dose Rate Site acetaminophen (TYLENOL) tablet 650 mg 650 mg, Oral, Every 4 hours PRN, Mild pain (Scale 1 - 3), Starting on Sun12/20/21 at 1113, Until Sun12/26/21 at 1812, Maximum dose of acetaminophen is 4000 mg from all sources in 24 hours. Given 12/22/2021 12:27 PM CDT 650 mg acidophilus (FLORAJEN) capsule 1 capsule 1 capsule, Oral, 2 times daily, First dose on Sun12/25/21 at 1200, Until Discontinued Given 12/26/2021 8:11 AM TEMPLATE INSPECTOR 1 capsule Given 12/25/2021 8:57 PM TEMPLATE INSPECTOR 1 capsule Given 12/25/2021 1:29 PM TEMPLATE INSPECTOR 1 capsule amLODIPine (NORVASC) tablet 10 mg 10 mg, Oral, Nightly, First dose on Sun12/16/21 at 2100, Until Discontinued, Hold for SBP<110 Given 12/25/2021 8:57 PM TEMPLATE INSPECTOR 10 mg Given 12/24/2021 8:01 PM CDT 10 mg Given 12/23/2021 8:00 PM CDT 10 mg atorvastatin (LIPITOR) tablet 20 mg 20 mg, Oral, Daily, First dose on Sun12/16/21 at 1815, Until Discontinued Given 12/26/2021 8:11 AM TEMPLATE INSPECTOR 20 mg Given 12/25/2021 9:18 AM TEMPLATE INSPECTOR 20 mg Given 12/24/2021 9:19 AM CDT 20 mg bisacodyl (DULCOLAX) suppository 10 mg 10 mg, Rectal, Daily as needed, Constipation, Starting on Sun12/16/21 at 2028, Until 12/26/21 at 1812, If unable to tolerate PO bisacodyl EC (DULCOLAX) tablet 5 mg 5 mg, Oral, Daily as needed, Constipation, Starting on Sun12/16/21 at 2028, Until 12/26/21 at 1812, Do not break, chew, or crush. ceFEPIme (MAXIPIME) 2 g in sodium chloride 0.9 % 100 mL IVPB 2 g, Intravenous, Administer over 30 Minutes, Every 8 hours, 128 doses, First dose (after last reorder) on Viky 12/22/21 at 1100, Last dose on Viky 02/02/22 at 1900, Renally adjusted per protocol New Bag 12/26/2021 11:39 AM TEMPLATE INSPECTOR 2 g 200 mL/hr New Bag 12/26/2021 2:52 AM TEMPLATE INSPECTOR 2 g 200 mL/hr New Bag 12/25/2021 9:00 PM TEMPLATE INSPECTOR 2 g 200 mL/hr cefTRIAXone (ROCEPHIN) 1 g in sodium chloride 0.9 % 50 mL IVPB 1 g, Intravenous, at 100 mL/hr, Once, 1 dose, On Sun12/16/21 at 1745 [facility] 12/16/2021 6:36 PM CDT 1 g 100 mL/hr cefTRIAXone (ROCEPHIN) 1 g in sodium chloride 0.9 % 50 mL IVPB 1 g, Intravenous, at 100 mL/hr, Every 24 hours, First dose on 12/17/21 at 1200, Until Discontinued New Bag 12/21/2021 12:41 PM CDT 1 g 10 0 mL/hr New Bag 12/20/2021 12:26 PM CDT 1 g 100 mL/hr New Bag 12/19/2021 1:10 PM CDT 1 g 100 mL/hr cetirizine (ZyrTEC) tablet 10 mg 10 mg, Oral, Daily, First dose on 12/24/21 at 1315, Until Discontinued Given 12/26/2021 8:11 AM TEMPLATE INSPECTOR 10 mg Given 12/25/2021 9:18 AM TEMPLATE INSPECTOR 10 mg Given 12/24/2021 1:40 PM CDT 10 mg cyclobenzaprine (FLEXERIL) tablet 10 mg 10 mg, Oral, 3 times daily PRN, Muscle Spasms, Starting on Sun12/16/21 at 1810, Until Sun12/26/21 at 1812 Given 12/23/2021 9:07 AM CDT 10 mg DAPTOmycin (CUBICIN) 450 mg in sodium chloride 0.9 % 100 mL IVPB 450 mg (rounded from 442.2 mg = 6 mg/kg ? 73.7 kg Adjusted weight), Intravenous, at 200 mL/hr, Every 24 hours, First dose on 12/24/21 at 1200, Until Discontinued New Bag 12/26/2021 11:39 AM TEMPLATE INSPECTOR 450 mg 200 mL/hr New Bag 12/25/2021 2:08 PM TEMPLATE INSPECTOR 450 mg 200 mL/hr New Bag 12/24/2021 1:40 PM CDT 450 mg 200 mL/hr dextrose 10 % bolus infusion 125-250 mL 125-250 mL, Intravenous, Administer over 15 Minutes, As needed, Low Blood Sugar, Starting on Sun12/16/21 at 1757, Until Sun12/26/21 at 1812, If patient is verbally responsive and NPO [...] repeat until blood glucose reaches 70 mg/dL diazePAM (VALIUM) tablet 5 mg 5 mg, Oral, Once, 1 dose, On Viky 12/22/21 at 1445 Given 12/22/2021 2:50 PM CDT 5 mg docusate sodium (COLACE) capsule 100 mg 100 mg, Oral, Daily, First dose on Sun12/16/21 at 2030, Until Discontinued Given 12/17/2021 9:08 AM CDT 100 mg Given 12/16/2021 10:53 PM CDT 100 mg docusate sodium (COLACE) capsule 100 mg 100 mg, Oral, 2 times daily, First dose (after last modification) on 12/17/21 at 2100, Until Discontinued Given 12/26/2021 8:11 AM TEMPLATE INSPECTOR 100 mg Given 12/25/2021 9:19 AM TEMPLATE INSPECTOR 100 mg Given 12/24/2021 8:30 PM CDT 100 mg fluticasone propionate (FLONASE) 50 MCG/ACT nasal spray 1 spray 1 spray, Each Nostril, Daily, First dose on 12/24/21 at 1315, Until Discontinued Given 12/26/2021 8:10 AM TEMPLATE INSPECTOR 1 sp ray Given 12/25/2021 6:37 AM TEMPLATE INSPECTOR 1 spray Given 12/24/2021 2:16 PM CDT 1 spray glucagon injection 1 mg 1 mg, Intramuscular, Once as needed, Other, Low blood sugar, 1 dose, Starting on Sun12/16/21 at 1757, Until 12/26/21 at 1812, If patient is verbally UNresponsive and no IV access with blood glucose less than 70 mg/dL. Do NOT repeat administration. glucose oral gel 32-64 mL 32-64 mL (15-30 g of dextrose), Oral, As needed, Low blood sugar, Starting on Sun12/16/21 at 1757, Until 12/26/21 at 1812, If patient is verbally responsive and taking [...] (2 times per day), First dose on Sun12/16/21 at 2100, Until Discontinued Given 12/26/2021 8:10 AM TEMPLATE INSPECTOR 5,000 Units Left Lower Abdomen Given 12/25/2021 8:57 PM TEMPLATE INSPECTOR 5,000 Units L eft Lower Abdomen Given 12/25/2021 9:18 AM TEMPLATE INSPECTOR 5,000 Units R ight Lower Abdomen heparin lock flush 10 UNIT/ML injection 3 mL 3 mL, Intracatheter, Every 24 hours, First dose on Viky 12/22/21 at 2015, Until Discontinued Given 12/25/2021 8:56 PM TEMPLATE INSPECTOR 3 mLs Given 12/24/2021 8:03 PM CDT 3 mLs Given 12/23/2021 8:12 PM CDT 3 mLs heparin lock flush 10 UNIT/ML injection 3 mL 3 mL, Intracatheter, As needed, Line care, Starting on Viky 12/22/21 at 1951, Until 12/26/21 at 1812, After each use Given 12/25/2021 4:16 AM TEMPLATE INSPECTOR 3 mLs hydroCHLOROthiazide (HYDRODIURIL) tablet 25 mg 25 mg, Oral, Every morning, First dose on 12/17/21 at 0900, Until Discontinued Given 12/20/2021 9:19 AM CDT 25 mg Given 12/19/2021 8:53 AM CDT 25 mg Given 12/18/2021 9:04 AM CDT 25 mg HYDROcodone-acetaminophen (NORCO) 5-325 MG tablet 1 tablet 1 tablet, Oral, Once, 1 dose, On Sun12/16/21 at 1700, Maximum dose of acetaminophen is 4000 mg from all sources in 24 hours. Given 12/16/2021 5:18 PM CDT 1 tablet HYDROcodone-acetaminophen (NORCO) 5-325 MG tablet 1 tablet 1 tablet, Oral, Every 6 hours PRN, Moderate pain (Scale 4 - 7), Starting on Sun12/20/21 at 1113, Until 12/26/21 at 1812, Maximum dose of acetaminophen is 4000 mg from all sources in 24 hours. Given 12/25/2021 10:41 PM TEMPLATE INSPECTOR 1 tab let Given 12/25/2021 12:13 AM CDT 1 tablet Given 12/24/2021 6:09 PM CDT 1 tablet hydrOXYzine (VISTARIL) capsule 25 mg 25 mg, Oral, Nightly at bedtime, First dose on Sun12/16/21 at 2100, Until Discontinued Given 12/25/2021 8:57 PM TEMPLATE INSPECTOR 25 mg Given 12/24/2021 8:01 PM CDT 25 mg Given 12/23/2021 7:59 PM CDT 25 mg insulin aspart protamine-insulin aspart (NOVOLOG 70/30) injection 55 Units 55 Units, Subcutaneous, Daily with supper, First dose on Sun12/16/21 at 1830, Until Discontinued Given 12/18/2021 6:09 PM CDT 55 Units Right Arm Given 12/17/2021 6:35 PM CDT 55 Units Le ft Arm insulin aspart protamine-insulin aspart (NOVOLOG 70/30) injection 55 Units 55 Units, Subcutaneous, Daily with supper, First dose on 12/24/21 at 1700, Until Discontinued Given 12/25/2021 5:43 PM TEMPLATE INSPECTOR 55 Units Left Arm Given 12/24/2021 6:09 PM CDT 55 Units Le ft Arm insulin aspart protamine-insulin aspart (NOVOLOG 70/30) injection 65 Units 65 Units, Subcutaneous, Every morning, First dose on 12/17/21 at 0700, Until Discontinued, Per P&T protocol, this is a therapeutic interchange for 75/25 Given 12/18/2021 9:08 AM CDT 65 Units Right Arm Given 12/17/2021 9:09 AM CDT 65 Units Ri ght Arm insulin aspart protamine-insulin aspart (NOVOLOG 70/30) injection 65 Units 65 Units, Subcutaneous, Daily with breakfast, First dose on 12/24/21 at 0830, Until Discontinued Given 12/26/2021 8:10 AM TEMPLATE INSPECTOR 65 Units Right Arm Given 12/25/2021 9:18 AM TEMPLATE INSPECTOR 65 Units Le ft Arm Given 12/24/2021 10:20 AM CDT 65 Units L eft Arm insulin glargine (LANTUS) injection 12 Units 12 Units (rounded from 11.9125 Units = 0.125 Units/kg ? 95.3 kg), Subcutaneous, Nightly at bedtime, First dose on Sun12/20/21 at 2100, Until Discontinued Given 12/20/2021 10:28 PM CDT 12 Units Left Lower Abdomen insulin glargine (LANTUS) injection 24 Units 24 Units (rounded from 23.825 Units = 0.25 Units/kg ? 95.3 kg), Subcutaneous, Nightly at bedtime, First dose on Sun12/21/21 at 2100, Until Discontinued Given 12/21/2021 8:33 PM CDT 24 Units Right Arm insulin glargine (LANTUS) injection 25 Units 25 Units, Subcutaneous, Nightly at bedtime, First dose (after last modification) on Sun12/22/21 at 2100, Until Discontinued Given 12/22/2021 9:08 PM CDT 25 Units Right Arm insulin glargine (LANTUS) injection 30 Units 30 Units, Subcutaneous, Nightly at bedtime, First dose (after last modification) on Sun12/23/21 at 2100, Until Discontinued Given 12/23/2021 8:10 PM CDT 30 Units Right Arm insulin lispro (HUMALOG) injection 0-16 Units 0-16 Units, Subcutaneous, 3 times daily before meals, First dose on Sun12/19/21 at 1100, Until Discontinued, Blood Glucose (USUAL Dosing): [Less than 70:? Initiate Hypoglycemia Standing Orders] [71-140: ? 0 units] [141-180:? 4 units] [181-220:? 6 units] [221-260:? 8 units] [261-300:? 10 units] [301-350:? 12 units] [351-400:? 14 units] [Greater than 400:? 16 units and Call Physician] Given 12/20/2021 12:26 PM CDT 8 Units Left Arm Given 12/20/2021 9:19 AM CDT 6 Units Ri ght Lower Abdomen Given 12/19/2021 4:43 PM CDT 4 Units Ri ght Arm insulin lispro (HUMALOG) injection 0-16 Units 0-16 Units, Subcutaneous, 3 times daily before meals, First dose on Sun12/20/21 at 1600, Until Discontinued, Blood Glucose (USUAL Dosing): [Less than 70:? Initiate Hypoglycemia Standing Orders] [71-140: ? 0 units] [141-180:? 4 units] [181-220:? 6 units] [221-260:? 8 units] [261-300:? 10 units] [301-350:? 12 units] [351-400:? 14 units] [Greater than 400:? 16 units and Call Physician] Given 12/26/2021 1:25 PM TEMPLATE INSPECTOR 2 Units Right Lower Abdomen Given 12/25/2021 5:44 PM TEMPLATE INSPECTOR 10 Units Le ft Arm Given 12/25/2021 1:29 PM TEMPLATE INSPECTOR 4 Units Ri ght Arm insulin lispro (HUMALOG) injection 0-8 Units 0-8 Units, Subcutaneous, Nightly at bedtime, First dose on Sun12/19/21 at 2100, Until Discontinued, Blood Glucose (USUAL Dosing): [Less than 70:? Initiate Hypoglycemia Standing Orders] [71-180:? 0 units] [181-220:? 3 units] [221-260:? 4 units] [261-300:? 5 units] [301-350:? 6 units] [351-400:? 7 units] [Greater than 400:? 8 units and Call Physician] Given 12/19/2021 9:59 PM CDT 6 Units Left Lower Abdomen insulin lispro (HUMALOG) injection 0-8 Units 0-8 Units, Subcutaneous, Nightly at bedtime, First dose on Sun12/20/21 at 2100, Until Discontinued, Blood Glucose (USUAL Dosing): [Less than 70:? Initiate Hypoglycemia Standing Orders] [71-180:? 0 units] [181-220:? 3 units] [221-260:? 4 units] [261-300:? 5 units] [301-350:? 6 units] [351-400:? 7 units] [Greater than 400:? 8 units and Call Physician] Given 12/25/2021 8:56 PM TEMPLATE INSPECTOR 2 Units Left Lower Abdomen Given 12/24/2021 10:16 PM CDT 3 Units L eft Arm Given 12/23/2021 8:10 PM CDT 4 Units Ri ght Arm insulin lispro (HUMALOG) injection 12 Units 12 Units, Subcutaneous, 3 times daily before meals, First dose (after last modification) on Sun12/22/21 at 1600, Until Discontinued, Administer with first bite of meal. HOLD if NPO or Clear Liquid. Given 12/23/2021 7:30 AM CDT 12 Units Left Lower Abdomen Given 12/22/2021 5:52 PM CDT 12 Units Le ft Arm insulin lispro (HUMALOG) injection 15 Units 15 Units, Subcutaneous, 3 times daily before meals, First dose (after last modification) on Sun12/23/21 at 1100, Until Discontinued, Administer with first bite of meal. HOLD if NPO or Clear Liquid. Given 12/23/2021 5:24 PM CDT 15 Units Left Lower Abdomen Given 12/23/2021 12:19 PM CDT 15 Units L eft Lower Abdomen insulin lispro (HUMALOG) injection 8 Units 8 Units (rounded from 7.624 Units = 0.08 Units/kg ? 95.3 kg), Subcutaneous, 3 times daily before meals, First dose on Sun12/21/21 at 1100, Until Discontinued, Administer with first bite of meal. HOLD if NPO or Clear Liquid. Given 12/22/2021 11:38 AM CDT 8 Units Left Arm Given 12/21/2021 5:31 PM CDT 8 Units Ri ght Arm Given 12/21/2021 12:42 PM CDT 8 Units R ight Arm linaCLOtide (LINZESS) capsule 145 mcg 145 mcg, Oral, Every morning before breakfast, First dose (after last reorder) on Sun12/20/21 at 0700, Until Discontinued, Take on an empty stomach at least 30 minutes prior to first meal of the day. Swallow whole. Do not chew.Take on empty stomach at least 30 minutes prior to the first meal of the day. Swallow whole. Do not open capsule or chew. Patient's own medication stored in patient specific bin in [employer]. Please send home with patient upon discharge from hospital. Given 12/26/2021 6:24 AM TEMPLATE INSPECTOR 145 mcg Given 12/25/2021 6:35 AM TEMPLATE INSPECTOR 145 mcg Given 12/23/2021 6:23 AM CDT 145 mcg lisinopril (PRINIVIL) tablet 40 mg 40 mg, Oral, Every evening, First dose on Sun12/16/21 at 2100, Until Discontinued Given 12/20/2021 10:28 PM CDT 40 mg Given 12/19/2021 9:58 PM CDT 40 mg Given 12/18/2021 8:33 PM CDT 40 mg magnesium sulfate IVPB 1 g 1 g, Intravenous, at 100 mL/hr, Once, 1 dose, On Sun12/16/21 at 2015 New Bag 12/16/2021 10:54 PM CDT 1 g 100 mL/hr metroNIDAZOLE (FLAGYL) tablet 500 mg 500 mg, Oral, Every 8 hours scheduled (3 times per day), 5 doses, First dose on 12/24/21 at 1400, Last dose on 12/25/21 at 2200 Given 12/25/2021 8:57 PM TEMPLATE INSPECTOR 500 mg Given 12/25/2021 5:45 PM TEMPLATE INSPECTOR 500 mg Given 12/25/2021 6:35 AM TEMPLATE INSPECTOR 500 mg morphine injection 1 mg 1 mg, Intravenous, Every 3 hours PRN, Severe pain (Scale 8 - 10), Moderate pain (Scale 4 - 7), Starting on Sun12/16/21 at 1756, Until Sun12/26/21 at 181 Given 12/23/2021 4:59 AM CDT 1 mg Given 12/22/2021 8:17 PM CDT 1 mg Given 12/22/2021 4:35 PM CDT 1 mg morphine injection 4 mg 4 mg, Intravenous, Once, 1 dose, On Sun12/16/21 at 1415 Given 12/16/2021 2:33 PM CDT 4 mg naLOXone (NARCAN) injection 0.4 mg 0.4 mg, Intravenous, As needed, Opioid reversal, Starting on Sun12/16/21 at 1756, Until Sun12/26/21 at 1812 normal saline 0.9 % flush 10 mL 10 mL, Intracatheter, As needed, Line care, Prior to blood draws (except blood cultures), Starting on Sun12/22/21 at 1951, Until Sun12/26/21 at 181 Given 12/24/2021 8:04 PM CDT 10 mLs normal saline 0.9 % flush 20 mL 20 mL, Intracatheter, As needed, Line care, After blood draws then administer heparin flush as indicated, Starting on Sun12/22/21 at 1951, Until Sun12/26/21 at 1812 normal saline 0.9 % flush 5-10 mL 5-10 mL, Intracatheter, Every 24 hours, First dose on Sun12/22/21 at 2015, Until Discontinued, When not in use Given 12/25/2021 9:00 PM TEMPLATE INSPECTOR 5 mLs Given 12/24/2021 8:30 PM CDT 5 mLs Given 12/23/2021 8:15 PM CDT 10 mLs ondansetron (ZOFRAN) injection 4 mg 4 mg, Intravenous, Every 8 hours PRN, Nausea, Starting on e 12/20/21 at 2019, Until 12/25/21 at 2014, IV push over 2-5 minutes. Given 12/25/2021 10:30 AM TEMPLATE INSPECTOR 4 mg Given 12/22/2021 7:24 AM CDT 4 mg Given 12/20/2021 8:25 PM CDT 4 mg ondansetron (ZOFRAN) injection 4 mg 4 mg, Intravenous, Every 8 hours PRN, Nausea, Starting on 12/25/21 at 1133, Until 12/26/21 at 1812, IV push over 2-5 minutes. pantoprazole EC (PROTONIX) tablet 40 mg 40 mg, Oral, Daily, First dose on 12/17/21 at 0900, Until Discontinued, Do not break, chew, or crush. Given 12/26/2021 8:11 AM TEMPLATE INSPECTOR 40 mg Given 12/25/2021 9:18 AM TEMPLATE INSPECTOR 40 mg Given 12/24/2021 9:20 AM CDT 40 mg polyethylene glycol (GLYCOLAX) packet 1 packet 1 packet, Oral, Daily, First dose on 12/17/21 at 1100, Until Discontinued, Dissolve entire packet in 240 mL of water Given 12/23/2021 8:06 AM CDT 1 packet Given 12/19/2021 8:53 AM CDT 1 packet Given 12/18/2021 9:04 AM CDT 1 packet potassium chloride CR (K-TAB) tablet 40 mEq 40 mEq, Oral, Once, 1 dose, On Sun12/16/21 at 1530, Do not break, chew, or crush. Given 12/16/2021 3:44 PM CDT 40 mE q Senna (SENOKOT) 8.6 MG tablet 8.6 mg 8.6 mg, Oral, Nightly at bedtime, First dose on 12/17/21 at 2100, Until Discontinued Given 12/23/2021 8:00 PM C DT 8.6 mg Given 12/22/2021 8:06 PM CDT 8.6 mg Given 12/18/2021 8:33 PM CDT 8.6 mg sodium zirconium cyclosilicate (LOKELMA) packet 5 g 5 g, Oral, Once, 1 dose, On Sun12/23/21 at 0800, Administer other oral medications at least 2 hours before or 2 hours after dose. Mix packet contents with approximately 45 mL or more of water. Stir well. Administer immediately. If powder remains in glass, add water and administer again until no powder remains. Given 12/23/2021 8:06 AM CDT 5 g vancomycin 1250 mg in IV solution 250 mL IVPB (XELLIA) 1,250 mg, Intravenous, at 166.7 mL/hr, Every 24 hours, First dose (after last modification) on 12/18/21 at 1900, Until Discontinued New Bag 12/20/2021 6:32 PM CDT 1,250 mg 166.7 mL/hr New Bag 12/19/2021 10:00 PM CDT 1,250 mg 166.7 mL/hr New Bag 12/18/2021 7:05 PM CDT 1,250 mg 166.7 mL/hr vancomycin 1500 mg in IV solution 300 mL IVPB (XELLIA) 1,500 mg, Intravenous, at 150 mL/hr, Once, 1 dose, On Sun12/16/21 at 1845 12/16/2021 7:46 PM CDT 1,500 mg 150 mL/hr vancomycin 1500 mg in IV solution 300 mL IVPB (XELLIA) 1,500 mg, Intravenous, at 150 mL/hr, Every 24 hours, First dose (after last reorder) on 12/17/21 at 1900, Until Discontinued 12/17/2021 7:34 PM CDT 1,500 mg 150 mL/hr vancomycin 2000 mg in IV solution 400 mL IVPB (XELLIA) 2,000 mg, Intravenous, at 200 mL/hr, Every 48 hours, First dose on Viky 12/22/21 at 1830, Until Discontinued New 12/22/2021 5:53 PM CDT 2,000 mg 200 mL/hr documented in this encounter Active and Recently Administered Medications Due to Daylight Saving Time, this section may contain times in both CDT and TEMPLATE INSPECTOR. Scheduled Medication Order 12/24/2021 12/25/2021 12/26/2021 acidophilus (FLORAJEN) capsule 1 capsule 1 capsule, Oral, 2 times daily, First dose on 12/25/21 at 1200, Until Discontinued 132 (Given - Provider: Kortney Elias RN)2056 (Given - Provider: Carlos Alberto Pacheco RN) 0811 (Given - Provider: David Grimes, DEANDRE) amLODIPine (NORVASC) tablet 10 mg 10 mg, Oral, Nightly, First dose on Sun12/16/21 at 2100, Until Discontinued, Hold for SBP<110 2000 (Given - Provider: Isabelle Sprague RN) 2056 (Given - Provider: Carlos Alberto Pacheco, DEANDRE) atorvastatin (LIPITOR) tablet 20 mg 20 mg, Oral, Daily, First dose on Sun12/16/21 at 1815, Until Discontinued 918 (Given - Provider: Kortney Elias RN) 09 (Given - Provider: Kortney Elias, DEANDRE) 08 (Given - Provider: David Grimes, DEANDRE) ceFEPIme (MAXIPIME) 2 g in sodium chloride 0.9 % 100 mL IVPB 2 g, Intravenous, Administer over 30 Minutes, Every 8 hours, 128 doses, First dose (after last reorder) on Viky 12/22/21 at 1100, Last dose on Sun02/02/22 at 1900, Renally adjusted per protocol 0431 (New Bag - Provider: Merrill Arias RN)0449 (Infusion Stop Time - Provider: Merrill Arias RN)1415 (New Bag - Provider: Kortney Elias RN)1446 (Infusion Stop Time - Provider: Kortney Elias RN)1958 (New Bag - Provider: Isabelle Sprague, DEANDRE)2028 (Infusion Stop Time - Provider: Isabelle Sprague RN) 0332 (New Bag - Provider: Isabelle Sprague RN)0416 (Infusion Stop Time - Provider: Isabelle Sprague, DEANDRE)1329 (New Bag - Provider: Kortney Elias, DEANDRE)1359 (Infusion Stop Time - Provider: Kortney Elias RN)2100 (New Bag - Provider: Carlos Alberto Pacheco, DEANDRE)2130 (Infusion Stop Time - Provider: Carlos Alberto Pacheco, DEANDRE) 0252 (New Bag - Provider: Carlos Alberto Pacheco, DEANDRE)0253 (Infusion Stop Time - Provider: Carlos Alberto Pacheco, DEANDRE)1139 (New Bag - Provider: David Grimes RN)1220 (Infusion Stop Time - Provider: David Grimes RN) cetirizine (ZyrTEC) tablet 10 mg 10 mg, Oral, Daily, First dose on 12/24/21 at 1315, Until Discontinued 1340 (Given - Provider: Kortney Elias RN) 0918 (Given - Provider: Kortney Elias RN) 0811 (Given - Provider: David Grimes RN) DAPTOmycin (CUBICIN) 450 mg in sodium chloride 0.9 % 100 mL IVPB 450 mg (rounded from 442.2 mg = 6 mg/kg ? 73.7 kg Adjusted weight), Intravenous, at 200 mL/hr, Every 24 hours, First dose on 12/24/21 at 1200, Until Discontinued 1340 (New Bag - Provider: Kortney Elias RN)1410 (Infusion Stop Time - Provider: Kortney Elias RN) 1408 (New Bag - Provider: Kortney Elias RN)1440 (Infusion Stop Time - Provider: Kortney Elias RN) 1139 (New Bag - Provider: David Grimes RN)1220 (Infusion Stop Time - Provider: David Grimes RN) docusate sodium (COLACE) capsule 100 mg 100 mg, Oral, 2 times daily, First dose (after last modification) on 12/17/21 at 2100, Until Discontinued 0923 (Not Given - Provider: Kortney Elias RN - Reason: Patient/family declined)2030 (Given - Provider: Isabelle Sprague RN) 0919 (Given - Provider: Kortney Elias RN)2100 (Not Given - Provider: Carlos Alberto Pacheco RN - Reason: Patient/family declined) 0811 (Given - Provider: David Grimes RN) fluticasone propionate (FLONASE) 50 MCG/ACT nasal spray 1 spray 1 spray, Each Nostril, Daily, First dose on 12/24/21 at 1315, Until Discontinued 1416 (Given - Provider: oKrtney Elias RN) 0637 (Given - Provider: Isabelle Sprague RN) 08 (Given - Provider: David Grimes, DEANDRE) heparin (porcine) injection 5,000 Units(Linked Group 1) 5,000 Units, Subcutaneous, Every 12 hours scheduled (2 times per day), First dose on Sun12/16/21 at 2100, Until Discontinued 09 (Given - Provider: Kortney Elias RN)2000 (Given - Provider: Isabelle Sprague RN) 917 (Given - Provider: Kortney Elias RN)2056 (Given - Provider: Carlos Alberto Pacheco, DEANDRE) 809 (Given - Provider: David Grimes, DEANDRE) heparin lock flush 10 UNIT/ML injection 3 mL(Linked Group 2) 3 mL, Intracatheter, Every 24 hours, First dose on Viky 12/22/21 at 2015, Until Discontinued 2002 (Given - Provider: Isabelle Sprague RN) 2055 (Given - Provider: Carlos Alberto Pacheco RN) hydrOXYzine (VISTARIL) capsule 25 mg 25 mg, Oral, Nightly at bedtime, First dose on Sun12/16/21 at 2100, Until Discontinued 2000 (Given - Provider: Isabelle Sprague RN) 2056 (Given - Provider: Carlos Alberto Pacheco RN) insulin aspart protamine-insulin aspart (NOVOLOG 70/30) injection 55 Units(Linked Group 3) 55 Units, Subcutaneous, Daily with supper, First dose on 12/24/21 at 1700, Until Discontinued 180 (Given - Provider: Kortney Elias RN) 1743 (Given - Provider: Kortney Elias RN) 1700 (Canceled Entry - Provider: Automatic Discharge Provider - Comment: Automatically canceled at discontinue of medication order) insulin aspart protamine-insulin aspart (NOVOLOG 70/30) injection 65 Units(Linked Group 3) 65 Units, Subcutaneous, Daily with breakfast, First dose on 12/24/21 at 0830, Until Discontinued 1020 (Given - Provider: Kortney Elias RN) 09 (Given - Provider: Kortney Elias RN) 08 (Given - Provider: David Grimes, DEANDRE) insulin lispro (HUMALOG) injection 0-16 Units(Linked Group 4) 0-16 Units, Subcutaneous, 3 times daily before meals, First dose on Sun12/20/21 at 1600, Until Discontinued, Blood Glucose (USUAL Dosing): [Less than 70:? Initiate Hypoglycemia Standing Orders] [71-140: ? 0 units] [141-180:? 4 units] [181-220:? 6 units] [221-260:? 8 units] [261-300:? 10 units] [301-350:? 12 units] [351-400:? 14 units] [Greater than 400:? 16 units and Call Physician] 1021 (Given - Provider: Kortney Elias RN)1340 (Given - Provider: Kortney Elias RN)1810 (Given - Provider: Kortney Elias RN) 0637 (Not Given - Provider: Isabelle Sprague RN - Reason: Order parameters not met)1329 (Given - Provider: Kortney Elias RN)1744 (Given - Provider: Kortney Elias RN) 0754 (Not Given - Provider: David Grimes RN - Reason: Order parameters not met)1325 (Given - Provider: David Grimes RN)1600 (Canceled Entry - Provider: Automatic Discharge Provider - Comment: Automatically canceled at discontinue of medication order) insulin lispro (HUMALOG) injection 0-8 Units(Linked Group 4) 0-8 Units, Subcutaneous, Nightly at bedtime, First dose on Sun12/20/21 at 2100, Until Discontinued, Blood Glucose (USUAL Dosing): [Less than 70:? Initiate Hypoglycemia Standing Orders] [71-180:? 0 units] [181-220:? 3 units] [221-260:? 4 units] [261-300:? 5 units] [301-350:? 6 units] [351-400:? 7 units] [Greater than 400:? 8 units and Call Physician] 2216 (Given - Provider: Isabelle Sprague RN) 2055 (Given - Provider: Carlos Alberto Pacheco, DEANDRE) linaCLOtide (LINZESS) capsule 145 mcg 145 mcg, Oral, Every morning before breakfast, First dose (after last reorder) on Sun12/20/21 at 0700, Until Discontinued, Take on an empty stomach at least 30 minutes prior to first meal of the day. Swallow whole. Do not chew.Take on empty stomach at least 30 minutes prior to the first meal of the day. Swallow whole. Do not open capsule or chew. Patient's own medication stored in patient specific bin in [employer]. Please send home with patient upon discharge from hospital. 0629 (Not Given - Provider: Merrill Arias RN - Reason: Patient/family declined) 0635 (Given - Provider: Isabelle Sprague RN) 0624 (Given - Provider: Carlos Alberto Pacheco, DEANDRE) metroNIDAZOLE (FLAGYL) tablet 500 mg (COMPLETED) 500 mg, Oral, Every 8 hours scheduled (3 times per day), 5 doses, First dose on 12/24/21 at 1400, Last dose on 12/25/21 at 2200 1340 (Given - Provider: Kortney Elias RN)2216 (Given - Provider: Isabelle Sprague RN) 0635 (Given - Provider: Isabelle Sprague RN)174 (Given - Provider: Kortney Elias, DEANDRE)2056 (Given - Provider: Carlos Alberto Pacheco, DEANDRE) normal saline 0.9 % flush 5-10 mL(Linked Group 2) 5-10 mL, Intracatheter, Every 24 hours, First dose on Viky 12/22/21 at 2015, Until Discontinued, When not in use 2030 (Given - Provider: Isabelle Sprague RN) 2100 (Given - Provider: Carlos Alberto Pacheco, DEANDRE) pantoprazole EC (PROTONIX) tablet 40 mg 40 mg, Oral, Daily, First dose on 12/17/21 at 0900, Until Discontinued, Do not break, chew, or crush. 0920 (Given - Provider: Kortney Elias RN) 0918 (Given - Provider: Kortney Elias RN) 0811 (Given - Provider: David Grimes RN) Senna (SENOKOT) 8.6 MG tablet 8.6 mg 8.6 mg, Oral, Nightly at bedtime, First dose on Sun12/17/21 at 2100, Until Discontinued 1999 (Not Given - Provider: Isabelle Sprague RN - Reason: Patient/family declined) 2100 (Not Given - Provider: Carlos Alberto Pacheco RN - Reason: Patient/family declined) PRN Medication Order 12/24/2021 12/25/2021 12/26/2021 acetaminophen (TYLENOL) tablet 650 mg 650 mg, Oral, Every 4 hours PRN, Mild pain (Scale 1 - 3), Starting on Sun12/20/21 at 1113, Until Sun12/26/21 at 181, Maximum dose of acetaminophen is 4000 mg from all sources in 24 hours. bisacodyl (DULCOLAX) suppository 10 mg 10 mg, Rectal, Daily as needed, Constipation, Starting on Sun12/16/21 at 2027, Until Sun12/26/21 at 1812, If unable to tolerate PO bisacodyl EC (DULCOLAX) tablet 5 mg 5 mg, Oral, Daily as needed, Constipation, Starting on Sun12/16/21 at 2027, Until Sun12/26/21 at 181, Do not break, chew, or crush. cyclobenzaprine (FLEXERIL) tablet 10 mg 10 mg, Oral, 3 times daily PRN, Muscle Spasms, Starting on Sun12/16/21 at 1810, Until Sun12/26/21 at 1812 dextrose 10 % bolus infusion 125-250 mL 125-250 mL, Intravenous, Administer over 15 Minutes, As needed, Low Blood Sugar, Starting on Sun12/16/21 at 1757, Until Sun12/26/21 at 1812, If patient is verbally responsive and NPO [...] repeat until blood glucose reaches 70 mg/dL glucagon injection 1 mg 1 mg, Intramuscular, Once as needed, Other, Low blood sugar, 1 dose, Starting on Sun12/16/21 at 1757, Until Sun12/26/21 at 1812, If patient is verbally UNresponsive and no IV access with blood glucose less than 70 mg/dL. Do NOT repeat administration. glucose oral gel 32-64 mL 32-64 mL (15-30 g of dextrose), Oral, As needed, Low blood sugar, Starting on Sun12/16/21 at 1757, Until Sun12/26/21 at 1812, If patient is verbally responsive and taking thickened liquids or oral medications: Blood glucose less than 50 mg/dL - give 30 g of dextrose; repeat until blood glucose reaches 70 mg/dL Blood glucose 50-69 mg/dL - give 15 g of dextrose; repeat until blood glucose reaches 70 mg/dL 32 mL of glucose gel = 15 g of dextrose heparin lock flush 10 UNIT/ML injection 3 mL(Linked Group 2) 3 mL, Intracatheter, As needed, Line care, Starting on Viky 12/22/21 at 1951, Until Sun12/26/21 at 1812, After each use 0416 (Given - Provider: Isabelle Sprague, DEANDRE) HYDROcodone-acetaminophen (NORCO) 5-325 MG tablet 1 tablet 1 tablet, Oral, Every 6 hours PRN, Moderate pain (Scale 4 - 7), Starting on Sun12/20/21 at 1113, Until Sun12/26/21 at 1812, Maximum dose of acetaminophen is 4000 mg from all sources in 24 hours. 1809 (Given - Provider: Kortney Elias RN) 0013 (Given - Provider: Isabelle Sprague RN)2241 (Given - Provider: Carlos Alberto Pacheco RN) morphine injection 1 mg 1 mg, Intravenous, Every 3 hours PRN, Severe pain (Scale 8 - 10), Moderate pain (Scale 4 - 7), Starting on Sun12/16/21 at 1756, Until Sun12/26/21 at 1812 naLOXone (NARCAN) injection 0.4 mg 0.4 mg, Intravenous, As needed, Opioid reversal, Starting on Sun12/16/21 at 1756, Until Sun12/26/21 at 1812 normal saline 0.9 % flush 10 mL(Linked Group 2) 10 mL, Intracatheter, As needed, Line care, Prior to blood draws (except blood cultures), Starting on Sun12/22/21 at 1951, Until Sun12/26/21 at 1812 2004 (Given - Provider: Isabelle Sprague RN) normal saline 0.9 % flush 20 mL(Linked Group 2) 20 mL, Intracatheter, As needed, Line care, After blood draws then administer heparin flush as indicated, Starting on Sun12/22/21 at 195, Until Sun12/26/21 at 1812 ondansetron (ZOFRAN) injection 4 mg (CANCELED) 4 mg, Intravenous, Every 8 hours PRN, Nausea, Starting on Sun12/20/21 at 2019, Until Sun12/25/21 at 2014, IV push over 2-5 minutes. 1030 (Given - Provider: Kortney Elias RN) ondansetron (ZOFRAN) injection 4 mg 4 mg, Intravenous, Every 8 hours PRN, Nausea, Starting on Sun12/25/21 at 1133, Until Sun12/26/21 at 1812, IV push over 2-5 minutes. Linked Groups Order Group 1: heparin (porcine) injection 5,000 UnitsJump to med 5,000 Units, Subcutaneous, Every 12 hours scheduled (2 times per day), First dose on Sun12/16/21 at 2100, Until Discontinued And Moderate Risk for VTE (COMPLETED) Group 2: normal saline 0.9 % flush 5-10 mLJump to med 5-10 mL, Intracatheter, Every 24 hours, First dose on Sun12/22/21 at 2015, Until Discontinued, When not in use And normal saline 0.9 % flush 10 mLJump to med 10 mL, Intracatheter, As needed, Line care, Prior to blood draws (except blood cultures), Starting on Sun12/22/21 at 195, Until Sun12/26/21 at 1812 And normal saline 0.9 % flush 20 mLJump to med 20 mL, Intracatheter, As needed, Line care, After blood draws then administer heparin flush as indicated, Starting on Sun12/22/21 at 195, Until Sun12/26/21 at 1812 And heparin lock flush 10 UNIT/ML injection 3 mLJump to med 3 mL, Intracatheter, Every 24 hours, First dose on Sun12/22/21 at 2015, Until Discontinued And heparin lock flush 10 UNIT/ML injection 3 mLJump to med 3 mL, Intracatheter, As needed, Line care, Starting on Sun12/22/21 at 1950, Until Sun12/26/21 at 1812, After each use And Flush all central lines with 10ml syringe (CANCELED) Routine, Continuous, Starting on Sun12/22/21 at 1951, Until Specified And Use pulse flush technique with all central lines (CANCELED) Routine, Continuous, Starting on Sun12/22/21 at 1951, Until Specified And Change dressing (CANCELED) Routine, As needed, Starting on Sun12/22/21 at 1950, Until Specified, Weekly and PRN if loose or soiled, use antimicrobial dressing to insertion site. And Chlorhexidine Gluconate Cloth Bath (CANCELED) Routine, Daily, First occurrence on Sun12/23/21 at 0600, Bathe patient with Chlorhexidine Gluconate prior to insertion, then daily. If Central Line was placed emergently, bathe patient as soon as possible with Chlorhexidine Gluconate, then daily. Refer to [employer] for specific bathing instructions. Group 3: insulin aspart protamine-insulin aspart (NOVOLOG 70/30) injection 65 UnitsJump to med 65 Units, Subcutaneous, Daily with breakfast, First dose on Sun12/24/21 at 0830, Until Discontinued And insulin aspart protamine-insulin aspart (NOVOLOG 70/30) injection 55 UnitsJump to med 55 Units, Subcutaneous, Daily with supper, First dose on Sun12/24/21 at 1700, Until Discontinued Group 4: insulin lispro (HUMALOG) injection 0-16 UnitsJump to med 0-16 Units, Subcutaneous, 3 times daily before meals, First dose on Sun12/20/21 at 1600, Until Discontinued, Blood Glucose (USUAL Dosing): [Less than 70:? Initiate Hypoglycemia Standing Orders] [71-140: ? 0 units] [141-180:? 4 units] [181-220:? 6 units] [221-260:? 8 units] [261-300:? 10 units] [301- 350:? 12 units] [351-400:? 14 units] [Greater than 400:? 16 units and Call Physician] And insulin lispro (HUMALOG) injection 0-8 UnitsJump to med 0-8 Units, Subcutaneous, Nightly at bedtime, First dose on Sun12/20/21 at 2100, Until Discontinued, Blood Glucose (USUAL Dosing): [Less than 70:? Initiate Hypoglycemia Standing Orders] [71-180:? 0 units] [181-220:? 3 units] [221-260:? 4 units] [261-300:? 5 units] [301-350:? 6 units] [351-400:? 7 units] [Greater than 400:? 8 units and Call Physician] documented in this encounter Additional Health Concerns Infection Onset Date Last Indicated Resolved Time COVID-19 Rule Out 12/22/2021 12/22/2021 12/22/2021 6:31 AM CDT Assessment Noted Time PHQ-9 Depression Total Score: 0 03/08/19 9:30 AM TEMPLATE INSPECTOR documented as of this encounter Care Teams Automotive Parts Counter Associate Relationship Specialty Start Date End Date Yasmin Segura II, MD [address] [place] [address] PCP - General FAMILY PRACTICE 03/09/21 documented as of this encounter
--- OUTSIDE RECORDS SUMMARY | 2024-03-02 22:27 | XMS_ITS | Encounter Summary ---
Author Organization [facility] Address [address] [place] [address]. [place] [address] [place] [address] Care Team Providers Care Cafe Associate Name Role Phone Colton SILVEIRA MD, Abiodun Rushing Primary Care Provider Encounter Details Date Type Department Care Team (Late st Contact Info) Description 12/29/2021 Hospital Follow-up Call [facility] Med/Surg 3rd [place] [address] Teresa Amaya RN Social History [...] st Contact Info) Description 03/14/2024 11:45 AM BI ANALYST Office Visit [facility] [phone] Marvin Mckeon MD [facility] [address] [place] [address] 03/20/2024 11:30 AM BI ANALYST Office Visit [facility] Family Medicine - [place] [phone] Abiodun Segura II, MD [address] [place] [phone] documented as of this encounter Visit Diagnoses Not on filedocumented in this encounter Additional Health Concerns Assessment Noted Time PHQ-9 Depression Total Score: 0 03/08/19 9:30 AM BI ANALYST documented as of this encounter Care Teams Cafe Associate Relationship Specialty Start Date End Date Abiodun Segura II, MD [address] [place] [address] PCP - General FAMILY PRACTICE 03/09/21 documented as of this encounter
--- OUTSIDE RECORDS SUMMARY | 2024-03-02 22:27 | XMS_ITS | Encounter Summary ---
Author Organization [facility] Address [address] [place] [address]. [place], [place] [phone] [place] [address] Care Team Providers Care Nuisance Animal Damage Control Agent Name Role Phone Colton SILVEIRA MD, Abiodun Rushing Primary Care Provider Encounter Details Date Type Department Care Team (Late st Contact Info) Description 12/27/2021 Plan of Care Documentation [address] [place] [address] Social History Tobacco Use Types Packs/Day Years [...] st Contact Info) Description 03/14/2024 11:45 AM GROUP RESERVATIONS COORDINATOR Office Visit [facility] [phone] Marvin Mckeon MD [facility] [address] [place] [address] 03/20/2024 11:30 AM GROUP RESERVATIONS COORDINATOR Office Visit [facility] Family Medicine - [place] [address] [place] [phone] Abiodun Segura II, MD [address] [place] [address] documented as of this encounter Visit Diagnoses Not on filedocumented in this encounter Additional Health Concerns Assessment Noted Time PHQ-9 Depression Total Score: 0 03/08/19 9:30 AM GROUP RESERVATIONS COORDINATOR documented as of this encounter Care Teams Nuisance Animal Damage Control Agent Relationship Specialty Start Date End Date Abiodun Segura II, MD [address] [place] [address] PCP - General FAMILY PRACTICE 03/09/21 documented as of this encounter
--- OUTSIDE RECORDS SUMMARY | 2024-03-02 22:27 | XMS_ITS | Encounter Summary ---
Author Organization [facility] Address [address] [place] [address]. [place], [place] [address] [place] [address] Care Team Providers Care Sagger Maker Name Role Phone Colton SILVEIRA MD, Abiodun Rushing Primary Care Provider Reason for Visit * Auth/Cert Specialty Diagnoses / Procedures Referred By Lyla chaney Referred To Contact Home Health Services / [facility] Care [address] [place] [address] [place] [address] Phone: tel: fax: Referral ID Status Reason Start Date Expiration Date Visits Re quested Visits Authorized [id number] 1 1 Encounter Details Date Type Department Care Team (Late st Contact Info) Description 12/29/2021 Home Care Visit [facility] Home Care [address] [place] [address] [place] [address] Eusebia Garner, RN CASE COMMUNICATION Social History Tobacco Use [...] st Contact Info) Description 03/14/2024 11:45 AM INSURANCE VERIFY REP Office Visit [facility] [phone] aMrvin Mckeon MD [facility] [address] [place] [address] 03/20/2024 11:30 AM INSURANCE VERIFY REP Office Visit [facility] Family Medicine - [place] [address] [place] [address] Abiodun Segura II, MD [address] [place] [address] documented as of this encounter Visit Diagnoses Not on filedocumented in this encounter Additional Health Concerns Assessment Noted Time PHQ-9 Depression Total Score: 0 03/08/19 9:30 AM INSURANCE VERIFY REP documented as of this encounter Care Teams Sagger Maker Relationship Specialty Start Date End Date Abiodun Segura II, MD [address] [place] [address] PCP - General FAMILY PRACTICE 03/09/21 documented as of this encounter
--- OUTSIDE RECORDS SUMMARY | 2024-03-02 22:27 | XMS_ITS | Encounter Summary ---
Author Organization [facility] Address [address] [place] [address]. [place], [place] [phone] [place] [phone] Care Team Providers Care Night Nurse Name Role Phone Colton SILVEIRA MD, Abiodun Rushing Primary Care Provider Encounter Details Date Type Department Care Team (Latest Contact Info) Description 01/01/2022 Travel Social History Tobacco Use Types Packs/Day [...] Coronavirus/COVID-19? No / Unsure 01/01/2022 7:00 PM ROTARY DRUM DYER documented as of this encounter Functional Status [...] st Contact Info) Description 03/14/2024 11:45 AM ROTARY DRUM DYER Office Visit [facility] [phone] Marvin Mckeon MD [facility] [address] [place] [phone] 03/20/2024 11:30 AM ROTARY DRUM DYER Office Visit [facility] Family Medicine - [place] [address] [place] [phone] Abiodun Segura II, MD [address] [place] [phone] documented as of this encounter Visit Diagnoses Not on filedocumented in this encounter Additional Health Concerns Assessment Noted Time PHQ-9 Depression Total Score: 0 03/08/19 9:30 AM ROTARY DRUM DYER documented as of this encounter Care Teams Night Nurse Relationship Specialty Start Date End Date Abiodun Segura II, MD [address] [place] [address] PCP - General FAMILY PRACTICE 03/09/21 documented as of this encounter
--- OUTSIDE RECORDS SUMMARY | 2024-03-02 22:27 | XMS_ITS | Encounter Summary ---
Author Organization [facility] Address [address] [place] [address]. [place] [address] [place] [address] Care Team Providers Care Shroudman Name Role Phone Colton SILVEIRA MD, Abiodun Rushing Primary Care Provider Encounter Details Date Type Department Care Team (Late st Contact Info) Description 12/29/2021 Hospital Follow-up Call [facility] Med/Surg 3rd [place] [address] Teresa Amaya RN Social History [...] Progress Notes * Teresa Amaya RN - 12/29/2021 12:07 PM CST Had no c/o any and states she would recommend the hospital. ROAD SUPERVISOR OF ENGINES documented in this encounter Plan of Treatment Upcoming Encounters Date Type Department Care Team (Late st Contact Info) Description 03/14/2024 11:45 AM RAILROAD SUPERVISOR OF ENGINES Office Visit [facility]-[address] [phone] Marvin Mckeon MD [facility] [address] [place] [address] 03/20/2024 11:30 AM RAILROAD SUPERVISOR OF ENGINES Office Visit [facility] Family Medicine - [place] [address] [place] [address] Abiodun Segura II, MD [address] [place] [address] documented as of this encounter Visit Diagnoses Not on filedocumented in this encounter Additional Health Concerns Assessment Noted Time PHQ-9 Depression Total Score: 0 03/08/19 9:30 AM RAILROAD SUPERVISOR OF ENGINES documented as of this encounter Care Teams Shroudman Relationship Specialty Start Date End Date Abiodun Segura II, MD [address] [place] [address] PCP - General FAMILY PRACTICE 03/09/21 documented as of this encounter
--- OUTSIDE RECORDS SUMMARY | 2024-03-02 22:28 | XMS_ITS | Encounter Summary ---
Author Organization [facility] Address [address] [place] [address]. [place] [address] [place] [address] Care Team Providers Care Desk Manager Name Role Phone Colton SILVEIRA MD, Yasmin Rushing Primary Care Provider Reason for Visit * Reason Comments Follow Up Diabetes and POC A1C Encounter Details Date Type Department Care Team (Late st Contact Info) Description 07/06/2021 10:40 AM CDT Office Visit [facility] Family Medicine - [place] [address] [place] [address] Yasmin Valenzuela II, MD [address] [place] [address] Follow Up (Diabetes and POC A1C) Social History Tobacco Use Types Packs/Day Years [...] suspected to have Coronavirus/COVID-19? No / Unsure 07/06/2021 10:23 AM CDT documented as of this encounter Last Filed Vital Signs Vital Sign Reading Time Taken Comments Blood Pressure 132/80 07/06/2021 11:00 AM CDT Pulse 85 07/06/2021 10:31 AM CDT Temperature 36.7 ??C (98 ??F) 07/06/2021 10:31 AM CDT Respiratory Rate - - Oxygen Saturation 100% 07/06/2021 10:31 AM CDT Inhaled Oxygen Concentration - - Weight 86.2 kg (190 lb) 07/06/2021 10:31 AM CDT Height - - Body Mass Index 30.67 04/15/2021 4:29 PM MORNING BABYSITTER documented in this encounter Functional Status * RETIRED Are you deaf or do you have serious difficulty hearing Answer Date of Assessment Author Status No 04/15/2021 11:33 PM MORNING BABYSITTER Acti ve * RETIRED Are you blind or do you have serious difficulty seeing, even when wearing glasses? Answer Date of Assessment Author Status No 04/15/2021 11:33 PM MORNING BABYSITTER Acti ve * Do you have serious difficulty walking or climbing stairs? Answer Date of Assessment Author Status No 04/15/2021 11:33 PM Erica Pappas RN Active * Do you have difficulty dressing or bathing? Answer Date of Assessment Author Status No 04/15/2021 11:33 PM Erica Pappas RN Active * Because of a physical, mental, or emotional condition, do you have difficulty doing errands alone such as visiting a doctor's office or shopping? Answer Date of Assessment Author Status No 04/15/2021 11:33 PM Erica Pappas RN Active documented as of this encounter Mental Status * Because of a physical, mental, or emotional condition, do you have serious difficulty concentrating, remembering, or making decisions? Answer Entry Date Author Status No 04/15/2021 11:33 PM Erica Pappas RN Active documented in this encounter Progress Notes * Yasmin Valenzuela II, MD - 07/06/2021 10:40 AM CDT Images from the original note were not included. [facility] [address] [address] OFFICE FOLLOW UP NOTE Encounter Date: 07/06/2021 Chief Complaint: Follow Up (Diabetes and POC A1C) History of Present Illness: 51-year-old female with history of diabetes, hypertension, decreased vision, Charcot foot, and hot flashes secondary to menopause here for hwvnm-ts-jady hemoglobin A1c testing and blood pressure check. Patient also reports itchy bumps along the sides of her face on both sides right greater than left. She wonders what she can use on these. They have been bothering her for approximately 1 month. Review Of Systems: Positive ROS items as [...] (CMS/HCC) ??? Hot flashes due to menopause Past Medical History: Diagnosis Date ??? Arthritis [...] file Tobacco Use ??? Smoking status: Never Smoker ??? Smokeless tobacco: Never Used Vaping Use ??? Vaping Use: Never used Substance and Sexual Activity ??? Alcohol use: Yes Comment: Rarely ??? Drug use: No ??? Sexual activity: Not on file Other Topics Concern ??? Service Not Asked [...] Not Asked Social History Narrative lives with Social Determinants of Health Financial Resource Strain: Not on file Food Insecurity: Not on file Transportation Needs: Not on file Physical Activity: Not on file Stress: Not on file Social Connections: Not on file Intimate Partner Violence: Not on file There is no immunization history on file for this patient. Current Outpatient Medications Medication Sig Dispense Refill ??? amLODIPine 10 MG tablet Take 1 tablet (10 mg total) by mouth daily. (Patient taking differently: Take 10 mg by mouth nightly. ) 90 tablet 3 ??? doxycycline hyclate 100 MG capsule Take 1 capsule (100 mg total) by mouth 2 (two) times daily for 10 days. 20 capsule 0 ??? Dulaglutide (TRULICITY) 3 MG/0.5ML Solution Pen-injector Inject 3 mg into the skin weekly. (Patient taking differently: Inject 3 mg into the skin weekly. ) 12 pen 3 ??? Glucose Blood test strip USE 1 STRIP TO CHECK GLUCOSE TWICE DAILY 200 strip 3 ??? HUMALOG MIX 75/25 (75-25) 100 UNIT/ML Suspension Inject 60 units ;subcutaneously in the morningand 55 in the evening 40 mL 3 ??? linaCLOtide 145 MCG capsule Take 1 capsule (145 mcg total) by mouth every morning before breakfast. Take on empty stomach at least 30 minutes prior to the first meal of the day. Swallow whole. Donot open capsule or chew. 30 capsule 5 ??? LISINOPRIL 40 MG tablet Take 1 tablet by mouth once daily 30 tablet 5 ??? Misc. Devices (PILL SPLITTER) Misc 1 Device by Does not apply route daily. 1 each 1 ??? nitroglycerin 0.[address] 0.4 mg under the tongue every 5 (five) minutes as needed. FOR CHEST PAIN DO NOT EXCEED A TOTAL OF 3 DOSES IN 15 MINUTES ??? ondansetron 4 MG disintegrating tablet Take 1 tablet (4 mg total) by mouth every 8 (eight) hours as needed for Nausea. 20 tablet 0 ??? RELION INSULIN SYRINGE 31G X 15/64 1 ML Misc USE 1 SYRINGE SUBCUTANEOUSLY TWICE DAILY (Patienttaking differently: 1 Syringe by Other route as needed. ) 100 each 5 ??? simvastatin 40 MG tablet Take 40 mg by mouth nightly at bedtime. ??? SITagliptin 100 MG tablet Take 1 tablet (100 mg total) by mouth daily. 90 tablet 3 ??? polyethylene glycol 17 GM/SCOOP powder Take 17 g by mouth daily. Dissolve powder in 240 mL water No current facility-administered medications for this visit. Allergies Allergen Reactions ??? Amoxicillin Rash ??? Penicillins Rash Objective: Filed Vitals: 07/06/21 1031 07/06/21 1100 BP: (!) 143/78 132/80 Pulse: 85 Temp: 98 ??F (36.7 ??C) TempSrc: Temporal SpO2: 100% Weight: 86.2 kg (190 lb) Nursing note reviewed. Physical Exam Vitals [...] orders placed or performed in visit on 07/06/21 A1C (BACK OFFICE) Result Value Ref Range HGB A1C 7.4 % Counseling The patient and patient's family was counseled regarding instructions for management, patient and family education and importance of compliance with treatment. Assessment: 1. Type 2 diabetes mellitus with diabetic neuropathic arthropathy, with long- term current use of insulin ([facility]) A1C (BACK OFFICE) 2. Folliculitis doxycycline hyclate 100 MG capsule 3. Primary hypertension 4. Charcot foot due to diabetes mellitus ([facility]/HCC) 5. Vision decreased 6. Hot flashes due to menopause Plan: Orders Placed This Encounter Medications ??? doxycycline hyclate 100 MG capsule 1. Type 2 diabetes mellitus with diabetic neuropathic arthropathy, with long- term current use of insulin ([facility]) Patient's diabetes is now well controlled. No medication changes needed at this time. We will plan to recheck hemoglobin A1c in 3 months for trend. - A1C (BACK OFFICE) 2. Folliculitis Patient appears to have mild staph folliculitis on her face likely secondary to mask use. We will treat with doxycycline 100 mg twice daily and patient will follow-up with me in 2 weeks for reevaluation. Patient may also use topical hydrocortisone cream as needed for itching. - doxycycline hyclate 100 MG capsule; Take 1 capsule (100 mg total) by mouth 2 (two) times daily for 10 days. Dispense: 20 capsule; Refill: 0 3. Primary hypertension Patient's blood pressure is at goal. No adjustment needed at this time. 4. Charcot foot due to diabetes mellitus ([facility]/HCC) Patient has a stable Charcot foot. She continues to be able to walk. We will continue risk factor control. 5. Vision decreased Patient has an eye appointment scheduled for July. 6. Hot flashes due to menopause We discussed treatment options for hot flashes. Patient will try jomj-tbo-qzhfqyn preparations at this time and we will continue to monitor. Patient may do well with an SNRI but we should likely avoid estrogen therapy secondary to her comorbid conditions. There are no discontinued medications. YASMIN VALENZUELA MD 07/06/2021 Portions of this note were dictated using Hoverink speech recognition software. Occasional wrong wordor sound-alike substitutions may have occurred due to the inherent limitations of voice recognition software. Please read the chart carefully and recognize, using context, where the substitutions may have occurred. documented in this encounter Plan of Treatment Upcoming Encounters Date Type Department Care Team (Late st Contact Info) Description 03/14/2024 11:45 AM MORNING BABYSITTER Office Visit [facility] [phone] Marvin Mckeon MD [address] [facility] [address] [place], [place] [phone] 03/20/2024 11:30 AM MORNING BABYSITTER Office Visit [facility] Family Medicine - [address] [phone] Yasmin Valenzuela II, MD [address] [place] [address] documented as of this encounter Procedures Procedure Name Priority Date/Time Associated Diagnosis Comments HEMOGLOBIN, GLYCOSYLATED Routine 07/06/2021 Type 2 diabetes mellitus with diabetic neuropathic arthropathy, with long-term current use of insulin ([facility]) documented in this encounter Results * A1C (BACK OFFICE) (07/06/2021) HGB A1C 7.4 % [facility] [id number] 07/06/2021 us Yasmin Valenzuela II, MD LABORATORY Final R esult [address],[facility] [address] [place] [address], [place] [phone] documented in this encounter Visit Diagnoses Diagnosis Type 2 diabetes mellitus with diabetic neuropathic arthropathy, with long-term current use of insulin ([facility])- Primary Folliculitis Other specified disease of hair and hair follicles Primary hypertension Unspecified essential hypertension Charcot foot due to diabetes mellitus ([facility]) Type II or unspecified type diabetes mellitus with neurological manifestations, not stated as uncontrolled Vision decreased Unspecified visual loss Hot flashes due to menopause documented in this encounter Additional Health Concerns Assessment Noted Time PHQ-9 Depression Total Score: 0 03/08/19 22 9:30 AM MORNING BABYSITTER documented as of this encounter Care Teams Desk Manager Relationship Specialty Start Date End Date Yasmin Valenzuela II, MD [address] [place], [place] [phone] PCP - General FAMILY PRACTICE 03/09/21 documented as of this encounter
--- OUTSIDE RECORDS SUMMARY | 2024-03-02 22:28 | XMS_ITS | Encounter Summary ---
Author Organization [facility] Address [address] [place] [address]. [place], [place] [address] [place] [address] Care Team Providers Care Manager Continuous Improvement Name Role Phone Colton SILVEIRA MD, Abiodun Rushing Primary Care Provider Encounter Details Date Type Department Care Team (Latest Contact Info) Description 08/17/2021 Travel Social History Tobacco Use Types Packs/Day [...] suspected to have Coronavirus/COVID-19? No / Unsure 08/17/2021 2:16 PM CDT documented as of this encounter Functional Status * RETIRED Are you deaf or do you have serious difficulty hearing Answer Date of Assessment Author Status No 07/09/2021 11:35 PM CDT Acti ve * RETIRED Are you blind or do you have serious difficulty seeing, even when wearing glasses? Answer Date of Assessment Author Status No 07/09/2021 11:35 PM CDT Acti ve * Do you have serious difficulty walking or climbing stairs? Answer Date of Assessment Author Status Yes 07/09/2021 11:35 PM EMILEET Servando Sung RN Active * Do you have difficulty dressing or bathing? Answer Date of Assessment Author Status No 07/09/2021 11:35 PM EMLIEET Servando Sung RN Active * Because of a physical, mental, or emotional condition, do you have difficulty doing errands alone such as visiting a doctor's office or shopping? Answer Date of Assessment Author Status No 07/09/2021 11:35 PM EMILEET Servando Sung RN Active documented as of this encounter Mental Status * Because of a physical, mental, or emotional condition, do you have serious difficulty concentrating, remembering, or making decisions? Answer Entry Date Author Status No 07/09/2021 11:35 PM Servando Hoover RN Active documented in this encounter Plan of Treatment Upcoming Encounters Date Type Department Care Team (Late st Contact Info) Description 03/14/2024 11:45 AM POTATO CHIP FRIER Office Visit [facility] [phone] Marvin Mckeon MD Three [facility] [address] [place] [address] 03/20/2024 11:30 AM POTATO CHIP FRIER Office Visit [facility] Family Medicine - [address] [phone] Abiodun Segura II, MD [address] [place] [address] documented as of this encounter Visit Diagnoses Not on filedocumented in this encounter Additional Health Concerns Assessment Noted Time PHQ-9 Depression Total Score: 0 03/08/19 9:30 AM POTATO CHIP FRIER documented as of this encounter Care Teams Manager Continuous Improvement Relationship Specialty Start Date End Date Abiodun Segura II, MD 100 [place] [address] PCP - General FAMILY PRACTICE 03/09/21 documented as of this encounter
--- OUTSIDE RECORDS SUMMARY | 2024-03-02 22:28 | XMS_ITS | Encounter Summary ---
Author Organization [facility] Address [address] [place] [address]. [place] [address] [place] [address] Care Team Providers Care Live Study Manager Name Role Phone Colton SILVEIRA MD, Abiodun Rushing Primary Care Provider Reason for Visit * Reason Onset Date Comments TCM 07/12/2021 TCM Encounter Details Date Type Department Care Team (Late st Contact Info) Description 07/12/2021 Telephone [facility] Family Medicine - [place] [address] [place] [address] Abiodun Segura II, MD [address] [place] [address] TCM (TCM) Social History Tobacco Use Types Packs/Day Years [...] suspected to have Coronavirus/COVID-19? No / Unsure 07/09/2021 3:16 PM CDT documented as of this encounter [...] Assessment Author Status Yes 07/09/2021 11:35 PM CDT Servando Sung RN Active * Do you have difficulty dressing or bathing? Answer Date of Assessment Author Status No 07/09/2021 11:35 PM CDT Servando Sung RN Active * Because of a physical, mental, or emotional condition, do you have difficulty doing errands alone such as visiting a doctor's office or shopping? Answer Date of Assessment Author Status No 07/09/2021 11:35 PM CDT Servando Sung RN Active documented as of this encounter Mental Status * Because of a physical, mental, or emotional condition, do you have serious difficulty concentrating, remembering, or making decisions? Answer Entry Date Author Status No 07/09/2021 11:35 PM CDT Servando Sung RN Active documented in this encounter Progress Notes * Laura Mccartney MA - 07/12/2021 3:20 PM CDT Follow up call to patient post hospitalization Date of hospital discharge: 07/11/2021 Patient discharged from: [facility] Discharge diagnosis/diagnoses: Chest pain Procedures performed while inpatient: Yes. Stress test and USE EKG Begin the medication reconciliation process (completed at first face to face visit) Any follow up services needed: Yes. With Dr. Segura Education on self management: Yes. Assess adherence with treatment (medication) regimen and provide support. Does patient have access to care and services (rides, etc)? Yes. Appointment scheduled for follow up in the office (7 days if high complexity or within 14 days for medium complexity) Appointment Date: 07/14/2021 Time: 2:40 PM documented in this encounter Plan of Treatment Upcoming Encounters Date Type Department Care Team (Late st Contact Info) Description 03/14/2024 11:45 AM LOCKSTITCH WAISTLINE JOINER Office Visit [facility] [phone] Marvin Mckeon MD [address] [facility] [address] [place] [address] 03/20/2024 11:30 AM LOCKSTITCH WAISTLINE JOINER Office Visit [facility] Family Medicine - [place] [address] [place] [phone] Abiodun Segura II, MD 100 [place] [address] documented as of this encounter Visit Diagnoses Not on filedocumented in this encounter Additional Health Concerns Assessment Noted Time PHQ-9 Depression Total Score: 0 03/08/19 9:30 AM LOCKSTITCH WAISTLINE JOINER documented as of this encounter Care Teams Live Study Manager Relationship Specialty Start Date End Date Abiodun Segura II, MD [address] [place] [address] PCP - General FAMILY PRACTICE 03/09/21 documented as of this encounter
--- OUTSIDE RECORDS SUMMARY | 2024-03-02 22:28 | XMS_ITS | Encounter Summary ---
Author Organization [facility] Address [address] [place] [address]. [place], [place] [address] [place] [address] Care Team Providers Care Animal Attendants And Trainers Name Role Phone Colton SILVEIRA MD, Abiodun Rushing Primary Care Provider Encounter Details Date Type Department Care Team (Latest Contact Info) Description 07/20/2021 Travel Social History Tobacco Use Types Packs/Day [...] suspected to have Coronavirus/COVID-19? No / Unsure 07/20/2021 10:05 AM CDT documented as of this encounter [...] PM EMILEET Servando Sung RN Active * Because of [...] Contact Info) Description 03/14/2024 11:45 AM SENIOR IOS SOFTWARE ENGINEER Office Visit [facility]-[address] [phone] Marvin Mckeon MD Three [facility] [address] [place] [address] 03/20/2024 11:30 AM SENIOR IOS SOFTWARE ENGINEER Office Visit [facility] Family Medicine - [address] [phone] Abiodun Segura II, MD [address] [place] [address] documented as of this encounter Visit Diagnoses Not on filedocumented in this encounter Additional Health Concerns Assessment Noted Time PHQ-9 Depression Total Score: 0 03/08/19 9:30 AM SENIOR IOS SOFTWARE ENGINEER documented as of this encounter Care Teams Animal Attendants And Trainers Relationship Specialty Start Date End Date Abiodun Segura II, MD 100 [place] [address] PCP - General FAMILY PRACTICE 03/09/21 documented as of this encounter
--- OUTSIDE RECORDS SUMMARY | 2024-03-02 22:28 | XMS_ITS | Encounter Summary ---
Author Organization [facility] Address [address] [place] [address]. [place], [place] [address] [place] [address] Care Team Providers Care Biology Internship Name Role Phone Colton SILVEIRA MD, Abiodun Rushing Primary Care Provider Encounter Details Date Type Department Care Team (Latest Contact Info) Description 12/16/2021 Travel Social History Tobacco Use Types Packs/Day [...] st Contact Info) Description 03/14/2024 11:45 AM BUSINESS LAWYER Office Visit [facility]-[address] [phone] Marvin Mckeon MD Three [facility] [address] [place] [address] 03/20/2024 11:30 AM BUSINESS LAWYER Office Visit [facility] Family Medicine - [address] [phone] Abiodun Segura II, MD [address] [place] [address] documented as of this encounter Visit Diagnoses Not on filedocumented in this encounter Additional Health Concerns Assessment Noted Time PHQ-9 Depression Total Score: 0 03/08/19 9:30 AM BUSINESS LAWYER documented as of this encounter Care Teams Biology Internship Relationship Specialty Start Date End Date Abiodun Segura II, MD 100 [place] [address] PCP - General FAMILY PRACTICE 03/09/21 documented as of this encounter
--- OUTSIDE RECORDS SUMMARY | 2024-03-02 22:28 | XMS_ITS | Encounter Summary ---
Author Organization [facility] Address [address] [place] [address]. [place], [place] [address] [place] [address] Care Team Providers Care Propulsion Engineer Name Role Phone Colton SILVEIRA MD, Abiodun Rushing Primary Care Provider Encounter Details Date Type Department Care Team (Latest Contact Info) Description 12/08/2021 Travel Social History Tobacco Use Types Packs/Day [...] suspected to have Coronavirus/COVID-19? No / Unsure 12/08/2021 2:09 PM CDT documented as of this encounter [...] st Contact Info) Description 03/14/2024 11:45 AM BRIM EDGE TRIMMER Office Visit [facility]-[address] [phone] Marvin Mckeon MD Three [facility] [address] [place] [address] 03/20/2024 11:30 AM BRIM EDGE TRIMMER Office Visit [facility] Family Medicine - [address] [phone] Abiodun Segura II, MD [address] [place] [address] documented as of this encounter Visit Diagnoses Not on filedocumented in this encounter Additional Health Concerns Assessment Noted Time PHQ-9 Depression Total Score: 0 03/08/19 9:30 AM BRIM EDGE TRIMMER documented as of this encounter Care Teams Propulsion Engineer Relationship Specialty Start Date End Date Abiodun Segura II, MD [address] [place] [address] PCP - General FAMILY PRACTICE 03/09/21 documented as of this encounter
--- OUTSIDE RECORDS SUMMARY | 2024-03-02 22:28 | XMS_ITS | Encounter Summary ---
Author Organization [facility] Address [address] [place] [address]. [place], [place] [phone] [place] [address] Care Team Providers Care Masonry Contractor Administrator Name Role Phone Colton SILVEIRA MD, Abiodun Rushing Primary Care Provider Reason for Visit * Reason Comments Dilated Eye Exam (SCAN) Encounter Details Date Type Department Care Team (Late st Contact Info) Description 08/24/2021 Scan HEALTH INFO [facility] Scanned, Documents Dilated Eye Exam (SCAN) Social History Tobacco [...] suspected to have Coronavirus/COVID-19? No / Unsure 09/07/2021 10:17 AM CDT documented as of this encounter [...] st Contact Info) Description 03/14/2024 11:45 AM SHREDDER OPERATOR Office Visit [facility]-[address] [phone] Marvin Mckeon MD Three [facility] [address] [place], [place] [address] 03/20/2024 11:30 AM SHREDDER OPERATOR Office Visit [facility] Family Medicine - [place] 100 [place] [phone] Abiodun Segura II, MD 100 [place], [place] [address] documented as of this encounter Procedures Procedure Name Priority Date/Time Associated Diagnosis Comments DIABETIC RETINOPATHY EXAM (POSITIVE)(SCAN ORDER) Routine 08/24/2021 documented in this encounter Results * DIABETIC RETINOPATHY EXAM (POSITIVE)(SCAN) (08/24/2021) us Documents Scanned SCANNING Final Result [facility] ON[facility] documented in this encounter Visit Diagnoses Not on filedocumented in this encounter Additional Health Concerns Assessment Noted Time PHQ-9 Depression Total Score: 0 03/08/19 22 9:30 AM SHREDDER OPERATOR documented as of this encounter Care Teams Masonry Contractor Administrator Relationship Specialty Start Date End Date Abiodun Segura II, MD [address] [place], [place] [phone] PCP - General FAMILY PRACTICE 03/09/21 documented as of this encounter
--- OUTSIDE RECORDS SUMMARY | 2024-03-02 22:28 | XMS_ITS | Encounter Summary ---
Author Organization [facility] Address [address] [place] [address]. [place], [place] [id number] [place] [id number] Care Team Providers Care Fine Wire Drawer Name Role Phone Colton SILVEIRA MD, Abiodun Rushing Primary Care Provider Encounter Details Date Type Department Care Team (Latest Contact Info) Description 07/06/2021 Travel Social History Tobacco Use Types Packs/Day [...] Assessment Author Status No 04/15/2021 11:33 PM LOSS PREVENTION COORDINATOR Acti ve * RETIRED Are you blind or do you have serious difficulty seeing, even when wearing glasses? Answer Date of Assessment Author Status No 04/15/2021 11:33 PM LOSS PREVENTION COORDINATOR Acti ve * Do you have serious [...] Pappas RN Active documented in this encounter Plan of Treatment Upcoming Encounters Date Type Department Care Team (Late st Contact Info) Description 03/14/2024 11:45 AM LOSS PREVENTION COORDINATOR Office Visit [facility]-[address] [id number] Marvin Mckeon MD [facility] [address] [place], [place] [id number] 03/20/2024 11:30 AM LOSS PREVENTION COORDINATOR Office Visit [facility] - [place] [address] [place] [id number] Abiodun Segura II, MD [address] [place] [phone] documented as of this encounter Visit Diagnoses Not on filedocumented in this encounter Additional Health Concerns Assessment Noted Time PHQ-9 Depression Total Score: 0 03/08/19 9:30 AM LOSS PREVENTION COORDINATOR documented as of this encounter Care Teams Fine Wire Drawer Relationship Specialty Start Date End Date Abiodun Segura II, MD [address] [place] [address] PCP - General FAMILY PRACTICE 03/09/21 documented as of this encounter
--- OUTSIDE RECORDS SUMMARY | 2024-03-02 22:28 | XMS_ITS | Encounter Summary ---
Author Organization [facility] Address [address] [place] [address]. [place] [address] [place] [address] Care Team Providers Care Hat Brim Curler Name Role Phone Colton SILVEIRA MD, Yasmin Rushing Primary Care Provider Reason for Visit * Reason Comments Follow Up Medical management Encounter Details Date Type Department Care Team (Late st Contact Info) Description 07/20/2021 10:20 AM CDT Office Visit [facility] Family Medicine - [place] [address] [place] [address] Yasmin Segura II, MD [address] [place], [place] [phone] Follow Up (Medical management) Social History Tobacco Use Types Packs/Day Years [...] Sign Reading Time Taken Comments Blood Pressure 130/68 07/20/2021 10:40 AM CDT Pulse 89 07/20/2021 10:20 AM CDT Temperature 36.7 ??C (98 ??F) 07/20/2021 10:20 AM CDT Respiratory Rate - - Oxygen Saturation 100% 07/20/2021 10:20 AM CDT Inhaled Oxygen Concentration - - Weight 85.3 kg (188 lb) 07/20/2021 10:20 AM CDT Height - - Body Mass Index 30.34 07/09/2021 3:13 PM CDT documented in this encounter Functional [...] Date Author Status No 07/09/2021 11:35 PM EMILEET Servando Sung RN Active documented in this encounter Progress Notes * Yasmin Segura II, MD - 07/20/2021 10:20 AM CDT Images from the original note were not included. [facility] FAMILY [address] [address] OFFICE FOLLOW UP NOTE Encounter Date: 07/20/2021 Chief Complaint: Follow Up (Medical management) History of Present Illness: 51-year-old female here to follow-up on esophagitis/gastritis secondary to doxycycline which is being treated with omeprazole. Patient reports that her symptoms are now resolved and that she feels well. Patient also reports that her home sugars are improved. She does have complaint of persistent fatigue and pain in her left leg which she thinks is from her Charcot foot. She will discuss the symptoms with her emergency management system director at follow-up. She has started B12 and women's once a day vitamins to see if this helps improve her fatigue. Review Of Systems: Positive ROS items as [...] flashes due to menopause ??? Chest pain Past Medical History: Diagnosis Date ??? Arthritis [...] by mouth nightly.) 90 tablet 3 ??? atorvastatin 40 MG tablet Take 1 tablet (40 mg total) by mouth nightly at bedtime for 30 days. 30 tablet 0 ??? Dulaglutide (TRULICITY) 3 MG/0.5ML [...] in the evening (Patient taking differently: Inject 65 units ;subcutaneously in the morning and 55 in the evening) 40 mL 3 ??? linaCLOtide 145 MCG [...] OF 3 DOSES IN 15 MINUTES ??? omeprazole 40 MG capsule Take 1 capsule (40 mg total) by mouth in the morning. 30 capsule 1 ??? ondansetron 4 MG disintegrating tablet Take 1 tablet (4 mg total) by mouth every 8 (eight) hours as needed for Nausea. 20 tablet 0 ??? RELION INSULIN SYRINGE 31G X 15/64 1 ML Misc USE 1 SYRINGE SUBCUTANEOUSLY TWICE DAILY (Patienttaking differently: 1 Syringe by Other route as needed.) 100 each 5 ??? SITagliptin 100 MG tablet Take 1 tablet (100 mg total) by mouth daily. 90 tablet 3 No current facility-administered medications for this visit. Allergies Allergen Reactions ??? Fish Oil Unknown ??? Amoxicillin Rash ??? Penicillins Rash Objective: Filed Vitals: 07/20/21 1020 07/20/21 1040 BP: (!) 149/87 130/68 Pulse: 89 Temp: 98 ??F (36.7 ??C) [...] or performed during the hospital encounter of 07/09/21 XR CHEST PORTABLE Narrative Examination: Chest Radiograph, 1 view Exam Date/Time: 07/09/2021 3:23 PM Reason For Exam: Chest pain Constipation for the past 4 days radiating to the left shoulder and neck. Comparison: 04/15/2021 chest radiograph Technique: Single AP view of the chest. Findings: Heart size stable. Pulmonary vascularity within normal limits. No large effusion or pneumothorax. No convincing focal infiltrate or consolidative change. ======== Impression IMPRESSION: ======== 1. No acute cardiopulmonary findings within limitations of exam Referred By: Interpreted By: Sanchez Pate MD, 07/09/2021 3:31 PM CBC W/DIFF AUTOMATED Result Value Ref Range WBC 10.6 4.5 - 11.0 x10'3/uL RBC 3.93 (L) 4.20 - 5.40 x10'6/uL HGB 12.0 12.0 - 16.0 G/DL HCT 35.2 (L) 38.0 - 48.0 % MCV 89.6 81.0 - 99.0 FL MCH 30.5 27.0 - 31.0 PG MCHC 34.1 32.0 - 36.0 G/DL RDW 13.2 11.5 - 14.5 % PLT 282 130 - 400 x10'3/uL MPV 11.2 9.3 - 12.2 FL DIFFERENTIAL TYPE AUTOMATED DIFFERENTIAL NEUTROPHILS 64.1 % LYMPHOCYTES 29.6 % MONOCYTES 4.6 % EOSINOPHILS 0.6 % BASOPHILS 0.5 % IMMATURE GRANS 0.6 % ABS. NEUTROPHILS TOTAL 6.78 1.80 - 7.70 x10'3/uL ABS. LYMPHOCYTES 3.13 1.00 - 4.80 x10'3/uL ABS. MONOCYTES 0.49 0.24 - 0.86 x10'3/uL ABS. EOSINOPHILS 0.06 0.04 - 0.36 x10'3/uL ABS. BASOPHILS 0.05 0.01 - 0.08 x10'3/uL ABS. IMMATURE GRANULOCYTES 0.06 0.00 - 0.49 x10'3/uL COMPREHENSIVE METABOLIC PANEL Result Value Ref Range GLUCOSE 167 (H) 70 - 99 MG/DL BUN 15 7 - 18 MG/DL CREATININE S/P/B 1.18 (H) 0.55 - 1.02 MG/DL SODIUM 139 136 - 145 MMOL/L POTASSIUM 3.7 3.5 - 5.1 MMOL/L CHLORIDE S/P/B 104 100 - 108 MMOL/L CO2 29.5 21 - 32 MMOL/L CALCIUM 9.1 8.5 - 10.1 MG/DL BILIRUBIN TOTAL S/P/B 0.4 0.2 - 1.2 MG/DL TOTAL PROTEIN S/P/B 8.9 (H) 6.4 - 8.2 G/DL ALBUMIN S/P/B 3.5 3.4 - 5.0 G/DL AST 19 15 - 37 U/L ALT 19 14 - 55 U/L ALKALINE PHOSPHATASE S/P/B 120 50 - 136 U/L ANION GAP 5.5 5 - 15 MMOL/L BUN CREATININE RATIO 12.7 6 - 26 A/G RATIO 0.6 (L) 1.0 - 2.0 RATIO GFR ESTIMATE 56 (L) >90 ML/MIN/1.73 M2 TROPONIN, QUANT Result Value Ref Range TROPONIN I HIGH SENSITIVITY 5 <54 ng/L TROPONIN, QUANT Result Value Ref Range TROPONIN I HIGH SENSITIVITY 5 <54 ng/L D-DIMER, QUANTITATIVE Result Value Ref Range D-DIMER 1,050 (HH) 0 - 500 ng[FEU]/mL HEMOGLOBIN, GLYCATED Result Value Ref Range HGB A1C 7.8 (H) <5.7 % ESTIMATED AVERAGE GLUCOSE 177 mg/dL TSH W/REFLEX Result Value Ref Range TSH 1.990 0.358 - 3.74 uIU/ML TROPONIN, QUANT Result Value Ref Range TROPONIN I HIGH SENSITIVITY 5 <54 ng/L CBC W/DIFF AUTOMATED Result Value Ref Range WBC 9.6 4.5 - 11.0 x10'3/uL RBC 3.50 (L) 4.20 - 5.40 x10'6/uL HGB 10.6 (L) 12.0 - 16.0 G/DL HCT 31.6 (L) 38.0 - 48.0 % MCV 90.3 81.0 - 99.0 FL MCH 30.3 27.0 - 31.0 PG MCHC 33.5 32.0 - 36.0 G/DL RDW 13.3 11.5 - 14.5 % PLT 249 130 - 400 x10'3/uL MPV 11.4 9.3 - 12.2 FL DIFFERENTIAL TYPE AUTOMATED DIFFERENTIAL NEUTROPHILS 52.7 % LYMPHOCYTES 41.3 % MONOCYTES 4.5 % EOSINOPHILS 0.7 % BASOPHILS 0.5 % IMMATURE GRANS 0.3 % ABS. NEUTROPHILS TOTAL 5.05 1.80 - 7.70 x10'3/uL ABS. LYMPHOCYTES 3.96 1.00 - 4.80 x10'3/uL ABS. MONOCYTES 0.43 0.24 - 0.86 x10'3/uL ABS. EOSINOPHILS 0.07 0.04 - 0.36 x10'3/uL ABS. BASOPHILS 0.05 0.01 - 0.08 x10'3/uL ABS. IMMATURE GRANULOCYTES 0.03 0.00 - 0.49 x10'3/uL PROTHROMBIN TIME, VENOUS Result Value Ref Range Protime 12.9 10.2 - 12.9 SEC INR 1.1 PARTIAL THROMBOPLASTIN TIME,PTT Result Value Ref Range PTT 32.1 25.1 - 36.5 SEC COMPREHENSIVE METABOLIC PANEL Result Value Ref Range GLUCOSE 183 (H) 70 - 99 MG/DL BUN 13 7 - 18 MG/DL CREATININE S/P/B 0.82 0.55 - 1.02 MG/DL SODIUM 139 136 - 145 MMOL/L POTASSIUM 3.4 (L) 3.5 - 5.1 MMOL/L CHLORIDE S/P/B 106 100 - 108 MMOL/L CO2 26.9 21 - 32 MMOL/L CALCIUM 8.6 8.5 - 10.1 MG/DL BILIRUBIN TOTAL S/P/B 0.3 0.2 - 1.2 MG/DL TOTAL PROTEIN S/P/B 7.5 6.4 - 8.2 G/DL ALBUMIN S/P/B 2.8 (L) 3.4 - 5.0 G/DL AST 16 15 - 37 U/L ALT 20 14 - 55 U/L ALKALINE PHOSPHATASE S/P/B 101 50 - 136 U/L ANION GAP 6.1 5 - 15 MMOL/L BUN CREATININE RATIO 16.0 6 - 26 A/G RATIO 0.6 (L) 1.0 - 2.0 RATIO GFR ESTIMATE 87 (L) >90 ML/MIN/1.73 M2 MAGNESIUM Result Value Ref Range MAGNESIUM 1.6 (L) 1.8 - 2.4 MG/DL TROPONIN, QUANT Result Value Ref Range TROPONIN I HIGH SENSITIVITY 7 <54 ng/L LIPID PANEL Result Value Ref Range CHOLESTEROL 150 <200 MG/DL TRIGLYCERIDE 333 (H) <150 MG/DL HDL 31 (L) >40.0 MG/DL LDL (CALCULATED) 52 <100 MG/DL NON HDL CHOLESTEROL 119 <130 MG/DL CHOL/HDL RATIO 4.8 (H) 0.0 - 4.5 VLDL Calculation 67 (H) 5 - 55 MG/DL LIPID INTERPRETATION D-DIMER, QUANTITATIVE Result Value Ref Range D-DIMER 1,022 (HH) 0 - 500 ng[FEU]/mL TROPONIN, QUANT Result Value Ref Range TROPONIN I HIGH SENSITIVITY 5 <54 ng/L CBC W/DIFF AUTOMATED Result Value Ref Range WBC 9.2 4.5 - 11.0 x10'3/uL RBC 4.02 (L) 4.20 - 5.40 x10'6/uL HGB 12.2 12.0 - 16.0 G/DL HCT 37.5 (L) 38.0 - 48.0 % MCV 93.3 81.0 - 99.0 FL MCH 30.3 27.0 - 31.0 PG MCHC 32.5 32.0 - 36.0 G/DL RDW 13.2 11.5 - 14.5 % PLT 270 130 - 400 x10'3/uL MPV 11.4 9.3 - 12.2 FL DIFFERENTIAL TYPE AUTOMATED DIFFERENTIAL NEUTROPHILS 56.8 % LYMPHOCYTES 36.0 % MONOCYTES 4.8 % EOSINOPHILS 1.6 % BASOPHILS 0.4 % IMMATURE GRANS 0.4 % ABS. NEUTROPHILS TOTAL 5.22 1.80 - 7.70 x10'3/uL ABS. LYMPHOCYTES 3.31 1.00 - 4.80 x10'3/uL ABS. MONOCYTES 0.44 0.24 - 0.86 x10'3/uL ABS. EOSINOPHILS 0.15 0.04 - 0.36 x10'3/uL ABS. BASOPHILS 0.04 0.01 - 0.08 x10'3/uL ABS. IMMATURE GRANULOCYTES 0.04 0.00 - 0.49 x10'3/uL COMPREHENSIVE METABOLIC PANEL Result Value Ref Range GLUCOSE 120 (H) 70 - 99 MG/DL BUN 16 7 - 18 MG/DL CREATININE S/P/B 0.91 0.55 - 1.02 MG/DL SODIUM 138 136 - 145 MMOL/L POTASSIUM 4.0 3.5 - 5.1 MMOL/L CHLORIDE S/P/B 106 100 - 108 MMOL/L CO2 24.3 21 - 32 MMOL/L CALCIUM 9.1 8.5 - 10.1 MG/DL BILIRUBIN TOTAL S/P/B 0.4 0.2 - 1.2 MG/DL TOTAL PROTEIN S/P/B 8.1 6.4 - 8.2 G/DL ALBUMIN S/P/B 3.1 (L) 3.4 - 5.0 G/DL AST 13 (L) 15 - 37 U/L ALT 18 14 - 55 U/L ALKALINE PHOSPHATASE S/P/B 109 50 - 136 U/L ANION GAP 7.7 5 - 15 MMOL/L BUN CREATININE RATIO 17.5 6 - 26 A/G RATIO 0.6 (L) 1.0 - 2.0 RATIO GFR ESTIMATE 77 (L) >90 ML/MIN/1.73 M2 TROPONIN, QUANT Result Value Ref Range TROPONIN I HIGH SENSITIVITY 6 <54 ng/L D-DIMER, QUANTITATIVE Result Value Ref Range D-DIMER 929 (HH) 0 - 500 ng[FEU]/mL MAGNESIUM Result Value Ref Range MAGNESIUM 1.7 (L) 1.8 - 2.4 MG/DL PHOSPHORUS, INORGANIC PHOSPHATE Result Value Ref Range PHOSPHORUS 4.0 2.5 - 4.9 MG/DL CTA CHEST Narrative EXAMINATION: CTA CHEST WITH CONTRAST EXAM DATE/TIME: 07/09/2021 7:10 PM REASON FOR EXAM: Left-sided chest pain COMPARISON: CT chest 04/28/2019 TECHNIQUE: Computed tomography angiography was performed of the chest after administration of intravenous contrast, 80mL IOPAMIDOL 76 % IV SOLN, according to routine protocol. Additional 3-D reconstructions and postprocessing were performed independently by the attending radiologist and a separate dedicated 3- D workstation. A dose lowering technique was used for this procedure, which may include,but is not limited to, dose reduction technique, automated exposure control, iterative reconstruction, ALARA (As Low As Reasonably Achievable), or Image Gently techniques. FINDINGS: The pulmonary arteries are well-opacified there is no pulmonary thromboembolic disease. There is no focal pulmonary consolidation. There is no pleural effusion. There is no pneumothorax. The heart size is normal. There is no pericardial abnormality. The caliber of the thoracic aorta is normal. Partially visualized right hydronephrosis, better characterized on the prior CT abdomen pelvisexamination from 04/15/2021. There is no acute fracture nor destructive process involving the visualized osseous structures. Impression =====IMPRESSION:===== 1. No pulmonary thromboembolic disease. 2. No CT findings of an acute abnormality within the chest 3. Partially visualized right hydronephrosis, better characterized on the prior CT abdomen and pelvis examination from 04/15/2021 Ordered By: EDUARDA CHESTER Interpreted By: Hubert Martínez MD, 07/09/2021 7:29 PM NM PHARM NUC STRESS TEST 1DAY Narrative Myocardial Perfusion Imaging Pat.Name: LENA YOUNGBLOOD Pat.ID: [id number] .Date: 07/11/2021 Refer.MD: Eduarda Chester [id number] Exam Time: 8:47:00 AM Study Type:MARINO MA HT MUSCLE IMAGE SPECT MULTI Height: 66in Weight: 186lb BSA: 1.94 m2 Age: 2 1970,51Y Sex: FEMALE Sonogrphr: Roxana Simmons [facility] Pat. Stat.:Inpatient Reason for Study: Chest pain, Shortness of breath History / Clinical: elevated D-dimer, Hypertension, Diabetes, Renal Insufficiency Procedures: Nuclear Stress Test with Lexiscan Race: -Irish Surgery: Echocardiogram ++++++++++++++++++++++++++++++++++++ SUMMARY: ++++++++++++++++++++++++++++++++++++ Stress conclusion: 1. Clinically negative. [...] overall low risk for a cardiac event. ++++++++++++++++++++++++++++++++++++ FINDINGS: ++++++++++++++++++++++++++++++++++++ Protocol: Lexiscan 0.4mg was given as a rapid injection IV over a period of 10 seconds with the radiopharmaceutical injected at 20 seconds. The images were processed using the standard SPECT technique. A gated study was performed on the stress images. Impression: SPECT images demonstrate normal perfusion of normal intensity. Heart Size: The left ventricle is normal. LV Wall Motion: The LVEF is calculated to be 61%. Gated SPECT images reveal normal wall motion. Transient Ischemic Dilatation: The TID is 1.03. There is no evidence of Transient Ischemic Dilatation. ++++++++++++++++++++++++++++++++++++ STRESS: ++++++++++++++++++++++++++++++++++++ Baseline Vital Signs: Intervention Regadenoson ECG Normal sinus rhythm, PVC'sPeak Dose 0.4 mg HR 89 Atropine 0 Rest BP 122/73 Stress Test Results: Max. HR 115 Pred. Max. Heart Rate (100%) 170 % Target: 68 % Max BP 133/80 O2 Sat 100 % Max RPP [id number] Symptoms and Complications: Terminated Protocol completed Symptoms Shortness of breath, Abdominal pain, Leg fatigue Complications None Stress ECG Interp No ischemic changes Signed 07/11/2021 01:02 PM Stacie Oconnell M.D. USE ECHOCARDIOGRAM W CON Narrative Echocardiography Report Pat.Name: LENA YOUNGBLOOD Pat.ID: [id number] .Date: 07/10/2021 Exam Time: 8:23:00 AM Study Type:ECHO WITH CARDIAC DOPPLER COMP Height: 66in Weight: 188.61lb BSA: 1.95 m2 Age: 2 1970,51Y Sex: FEMALE BP: 125/81 HR: 87 bpm Sonogrphr: KALINA LOPEZ [facility] Reason for Study: Chest pain History / Clinical: elevated D-dimer, Hypertension Procedures: 2D, M-mode, Doppler, Color Flow, Definity was used to enhance endocardial definition., Intraveneous saline contrast was used to help determine presence of intracardiac shunting. Race: -Irish ++++++++++++++++++++++++++++++++++++ SUMMARY: ++++++++++++++++++++++++++++++++++++ The left ventricular systolic function is normal. Estimated left ventricular ejection fraction is 55-60%. Left ventricular diastolic function is normal. Wall motion appears normal in all segments. No significant valvular abnormality. ++++++++++++++++++++++++++++++++++++ FINDINGS: ++++++++++++++++++++++++++++++++++++ LV: The left ventricular size is normal. The left ventricular systolic function is normal. Estimated left ventricular ejection fraction is 55-60%. There is no left ventricular hypertrophy. Left ventricular diastolic function is normal. WM: Wall motion appears normal in all segments. RV: The right ventricular size is normal. Right ventricular systolic function is mildly depressed. IVS: Mild septal hypertrophy. LA: The left atrial size is normal. RA: Right atrial size is normal. IAS: Atrial septum appears intact. The agitated saline injection showed no clear evidence of shunting into the left atrium, consistent with no patent foramen ovale. SIMONE: No evidence of pericardial effusion. AO: Normal aortic root. PA: Estimated right atrial pressure of 8 mmHg. Unable to reliably quantitate pulmonary systolic pressure. SVn: Inferior vena cava is normal. Inferior vena cava shows <50% collapse with respiration consistent with normal right atrial pressure. Systemic veins not well visualized. AV: The aortic valve is trileaflet. No evidence of aortic valve stenosis. MV: No evidence of significant mitral regurgitation. No evidence of mitral valve stenosis. Mild thickening of mitral valve leaflets. PV: No evidence of pulmonic valve stenosis. No evidence of pulmonic regurgitation. Pulmonic valve not well visualized. TV: Structurally normal tricuspid valve. No evidence of tricuspid regurgitation. No evidence of tricuspid valve stenosis. ++++++++++++++++++++++++++++++++++++ MEASUREMENTS: ++++++++++++++++++++++++++++++++++++ DOPPLER LVOT LVOTpkPG 4 mmHg LVOTmnPG 2 mmHg LVOTpkVel 100 cm/s (70-110) LVOT SV 57 ml LVOT TVI 18 cm AV Forward Flow AV TVI 24.9 cm AV pkPG 8 mmHg AV pkVel 141 cm/s (100-170) Area (TVI) 2.27 cm2 (3-5)* AV mnPG 4 mmHg Area (Nadir) 2.23 cm2 (3-5)* MV Forward Flow MV DeTm 77 ms MV pkE 82.6 cm/s (60-130) MV E/A 0.7 MV pkA 119 cm/s PV Forward Flow PV pkVel 73.8 cm/s (60-90) PV AC 92 ms PV pkPG 2 mmHg Lat E' Lat e 6.38 cm/s Lat E/E' Lat E/e 12.9 Med E' Med e 5.61 cm/s Med E/E' Med E/e 14.7 Aortic Valve Aortic Valve Ar 1.16 Aortic Valve Ve 0.71 PV Antegrade Flow Acceleration Sl 742 cm/s2 Right Atrium Hernandez's Disk 20 Right Ventricle Right Ventricle 8.01 cm/s 2D Left Ventricle LVIDd 3.89 cm (3.6-5.2) LV ESV 32.5 ml LVIDs 2.9 cm (2.3-3.9) LV ESV 46.7 ml LngAxd 6.9 cm LVESV BP 39.1 ml LngAxd 7.59 cm LV EF 59.7 % LV EDV 80.7 ml LV EF 57.2 % LV EDV 109 ml LV EF BP 60 % LVEDV BP 97.7 ml LV SV 48.2 ml LngAxs 5.82 cm LV SV 62.3 ml LngAxs 5.72 cm LV SV BP 58.6 ml LVPW LVPWd 0.907 cm Ventricular Septum IVSd 0.953 cm Left Atrium LA VOLBP 47.3 ml LVOT LVOT 2 cm LVOTArea 3.14 cm2 Ratios IVS LA Biplane LAVol I BP 24.3 ml/m2 RA Single Plane Right Atrium MO 9.77 mm Right Atrium Sy 17.8 ml Right Atrium Sy 43 mm Right Atrium Sy 9.1 ml/m2 Right Atrium Sy 9.65 cm2 Right Ventricle Right Ventricle 37.7 mm Right Ventricle 27.8 mm Major [place] 59.9 mm MMODE TA Tricuspid Annul 14.2 mm Signed 07/10/2021 12:36 PM Brianna Acosta M.D. USV JOANIE DUPLEX LOW EXT NOHEMY Narrative VENOUS DUPLEX IMAGING BILATERAL LOWER EXTREMITY VASCULAR LAB Pat.Name: LENA YOUNGBLOOD Pat.ID: [id number] .Date: 07/09/2021 : [id number], Elissa gilman Exam Time: 8:29:00 PM Study Type:MARINO VS Venous Duplex Legs NOHEMY Age: 2 1970,51Y Sex: FEMALE Sonogrphr: Reynaldo Blue RVT Pat. Stat.:Inpatient Room: ED 20 History / Clinical:elevated D-dimer Procedures: Danielle scale, Color Doppler imaging, Doppler Spectral Analysis Race: B ++++++++++++++++++++++++++++++++++++ SUMMARY: ++++++++++++++++++++++++++++++++++++ Right leg: There are NO apparent, deep or superficial vein, ACUTE character venous filling defects visualized in the femoral, popliteal, deep calf or proximal saphenous veins. Resting venous flow is normal phasic proximally. No valve reflux with compression maneuvers is detected in the femoral and popliteal veins. Left leg: There are NO apparent, deep or superficial vein, ACUTE character venous filling defects visualized in the femoral, popliteal, deep calf or proximal saphenous veins. Resting venous flow is normal phasic proximally. No valve reflux with compression maneuvers is detected in the femoral and popliteal veins. CONCLUSION: Normal study bilateral lower extremity, with no evidence of acute deep or superficial vein thrombosis. There is no significant reflux detected. ++++++++++++++++++++++++++++++++++++ FINDINGS: ++++++++++++++++++++++++++++++++++++ Signed 07/12/2021 01:05 AM Joel Santiago M.D. POCT glucose Result Value Ref Range GLUCOSE POC 173 (H) 70 - 99 mg/dL POCT glucose Result Value Ref Range GLUCOSE POC 189 (H) 70 - 99 mg/dL POCT glucose Result Value Ref Range GLUCOSE POC 149 (H) 70 - 99 mg/dL POCT glucose Result Value Ref Range GLUCOSE POC 242 (H) 70 - 99 mg/dL POCT glucose Result Value Ref Range GLUCOSE POC 169 (H) 70 - 99 mg/dL POCT glucose Result Value Ref Range GLUCOSE POC 142 (H) 70 - 99 mg/dL POCT glucose Result Value Ref Range GLUCOSE POC 213 (H) 70 - 99 mg/dL ECG 12 lead Narrative [address] Test Date: 2021-07-09 Pat Name: LENA YOUNGBLOOD Department: 41 Room: [facility] 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: [id number] : 1970 Requested By: EDUARDA CHESTER Order Number: [id number] Reading MD: Brianna Acosta Measurements Intervals [place] Rate: 88 P: 49 KS: 179 QRS: 11 QRSD: 83 T: -75 QT: 304 QTc: 369 Interpretive Statements SINUS RHYTHM WITH FREQUENT VENTRICULAR PREMATURE COMPLEXES LOW QRS VOLTAGE IN PRECORDIAL LEADS NONSPECIFIC T-WAVE ABNORMALITY Compared to ECG 07/10/2021 05:27:01 Low QRS voltage now present T-wave abnormality still present Counseling The patient and patient's family was counseled regarding instructions for management, patient and family education and importance of compliance with treatment. Assessment: 1. H/O acute gastritis 2. Primary hypertension 3. Type 2 diabetes mellitus with diabetic neuropathic arthropathy, with long- term current use of insulin ([facility]) 4. Fatigue, unspecified type 5. Charcot foot due to diabetes mellitus ([facility]) Plan: No orders of the defined types were placed in this encounter. 1. H/O acute gastritis Patient's folliculitis is currently resolved. Patient will continue to not take doxycycline unless her folliculitis returns. She may continue omeprazole 40 mg daily as needed for symptoms. Patient tofollow-up with me in August for vlyjy-hy-yjel hemoglobin A1c. 2. Primary hypertension Patient's blood pressure is improved today. No medication adjustment needed at this time. 3. Type 2 diabetes mellitus with diabetic neuropathic arthropathy, with long- term current use of insulin ([facility]) Patient's home sugars show better control. We will plan to check hemoglobin A1c in clinic in August for trend. 4. Fatigue, unspecified type Patient has fatigue which is multifactorial and likely is partially due to deconditioning secondaryto having her Charcot foot. Patient will continue oral B12 and women's once a day vitamins and willincrease her activity as tolerated. If fatigue persists when she follows up in August we may consideradditional cardiac evaluation. 5. Charcot foot due to diabetes mellitus ([facility]) Patient to follow-up with her emergency management system director as scheduled for ongoing management of her Charcot foot. There are no discontinued medications. YASMIN SEGURA MD 07/20/2021 Portions of this note were dictated using [employer]Foot speech recognition software. Occasional wrong wordor sound-alike substitutions may have occurred due to the inherent limitations of voice recognition software. Please read the chart carefully and recognize, using context, where the substitutions may have occurred. documented in this encounter Plan of Treatment Upcoming Encounters Date Type Department Care Team (Late st Contact Info) Description 03/14/2024 11:45 AM RURAL MAIL CONTRACTOR Office Visit [facility] [phone] Marvin Mckeon MD Three [facility] [address] [place] [address] 03/20/2024 11:30 AM RURAL MAIL CONTRACTOR Office Visit [facility] Family Medicine - [place] [address] [place] [phone] Yasmin Segura II, MD 100 [place] [address] documented as of this encounter Visit Diagnoses Diagnosis H/O acute gastritis- Primary Personal history of unspecified digestive disease Primary hypertension Unspecified essential hypertension Type 2 diabetes mellitus with diabetic neuropathic arthropathy, with long-term current use of insulin ([facility]) Fatigue, unspecified type Charcot foot due to diabetes mellitus ([facility]) Type II or unspecified type diabetes mellitus with neurological manifestations, not stated as uncontrolled documented in this encounter Additional Health Concerns Assessment Noted Time PHQ-9 Depression Total Score: 0 03/08/19 22 9:30 AM RURAL MAIL CONTRACTOR documented as of this encounter Care Teams Hat Brim Curler Relationship Specialty Start Date End Date Yasmin Segura II, MD [address] [place] [address] PCP - General FAMILY PRACTICE 03/09/21 documented as of this encounter
--- OUTSIDE RECORDS SUMMARY | 2024-03-02 22:28 | XMS_ITS | Encounter Summary ---
Author Organization [facility] Address [address] [place] [address]. [place] [address] [place] [address] Care Team Providers Care Body Stylist Name Role Phone Colton SILVEIRA MD, Abiodun Rushing Primary Care Provider Reason for Visit * Auth/Cert Specialty Diagnoses / Procedures Referred By Lyla chaney Referred To Contact Diagnoses Hypokalemia Diabetic foot ulcer ([facility]) Diabetic foot infection ([facility]) Diabetic foot infection ([facility]) Procedures NONE Lisseth Prado MD 1 [place] [address] Phone: tel: [phone] fax: Referral ID Status Reason Start Date Expiration Date Visits Re quested Visits Authorized [id number] 1 1 Encounter Details Date Type Department Care Team (Late st Contact Info) Description 12/22/2021 7:00 AM CDT Anesthesia Event [facility] [place], [place] [id number] Viet Araujo MD [address] [facility] [address] [address] Anesthesia Record Procedure Summary Procedure Name Responsible Anesthesiologist Anesthesia Start Time Anesthesia Stop Time BONE BIOPSY RIGHT FIRST AND SECOND TOES (Right: Foot) Viet Araujo MD 12/22/21 0700 12/22/21 0733 Events Date Time Event Comment 12/22/2021 0458 0458 AN Anesthesia Prepped 0700 An Start Patient ID and consent checked and patient reassessed. 0700 An Start Data 0703 Preoxygenation 0705 An Induction The patient was reevaluated immediately before moderate or deep sedation use and before anesthesia induction. 0710 Anesthesia Ready 0710 An LMA 0722 Quick Note Linda Joseph RNA present. I remain present for continuous supervision of SRNA and maintain responsibility for documentation. After speaking with the patient and explaining all aspects of the the planned analgesic/anesthetic, and offering alternatives, informed consent was obtained in which the patient demonstrated the ability to participate in care decisions, to understand pertinent issues, and to be free from control by others in making decisions. The Student Registered Nurse Applications Packager, Jordan DELGADO, was introduced to the patient and again, consent for the SRNA to participate in all aspects of the care for the patient was obtained. 0726 LMA Removed 0727 An Emergence 0728 an stop data 0733 Post Anesthetic Care Handoff I completed my handoff to the receiving nurse during which we: 1. Identified the patient 2. Identified the responsible provider 3. Reviewed the pertinent medical history 4. Discussed the surgical course 5. Reviewed intra-op anesthesia management and issues during anesthesia 6. Set expectations for post-procedure period 7. Allowed opportunity for questions and acknowledgement of understanding. 0733 An Stop Meds Name Total lidocaine (PF) (XYLOCAINE) 2% injection 60 mg propofol (DIPRIVAN) 200 mg/20 mL injecti on 140 mg midazolam 2 mg/2 mL injection 2 mg fentaNYL (SUBLIMAZE) 100 mcg/2 mL inject ion 50 mcg phenylephrine (SAL-SYNEPHRINE) injection 160 mcg ondansetron (ZOFRAN) injection 4 mg 4 mg lactated ringers infusion 100 mL * Agents Name O2 Inspired Sevoflurane Sevoflurane * Blood No blood administrations on file. Lines, Drains, and Airways Type Details Placement Removal Peripheral IV Placement Date: 12/16/21; Size: 20 G; Orientation: Right; Location: Forearm; Inserted By: Markos Vazquez RN; Ultrasound-guided Placement?: Yes; Removal Date: 12/23/21; Removal Time: 0900; Removal Reason: Leaking 12/16/21 0000 by Sandy Lima RN 12/23/21 0900 by Leah Patel RN Wound 12/17/21; 0220; 2; T oe (Comment which one) (Big toe); Anterior, Right; slough; *Diabetic ulcer; 02/03/22; 1005; Healed 12/17/21 0220 by Roxana Parsons RN 02/03/22 1005 by Mauricio Abbott RN Wound 12/19/21; 1015; Toe (Comment which one); Right, Posterior; right 2nd posterior toe; 02/03/22; 1005; Healed 12/19/21 1015 by Lulu Lopez RN 02/03/22 1005 by Mauricio Abbott RN Wound 12/19/21; 1017; Toe (Comment which one) (1st toe); Right, Anterior; 02/03/22; 1005; Healed 12/19/21 1017 by Lulu Lopez RN 02/03/22 1005 by Mauricio Abbott RN Supraglottic Airway Placement Date: 12/22/21; Placement Time: 709; Airway Device: LMA; LMA Size: 4; Placed Outside of This Facility?: No; Placed By: Other (Comment) (LMA placed by Jordan DELGADO); Style: (IGEL); Placement Verified By: Capnography, Auscultation, Chest Rise; Removal Date: 12/22/21; Removal Time: 0712/22/21 07 by Peng Chandler CRNA 12/22/21 07 by Peng Chandler CRNA Surgical/Incision 12/22/21; 0721; Surgical Wound; Toe (Comment which one); Right; Right 1st and 2nd toes closed with sutureDressing: bandaid x2; 12/26/21; 18112/22/21 07 by Zee Rush RN 12/26/211811 by Automatic Discharge Provider documented in this [...] Qureshi RN Active documented in this encounter OR Notes * Anesthesia Postprocedure Evaluation - Viet Araujo MD - 12/23/2021 5:54 AM CDT Anesthesia Post-op Note Lena Mcneal Procedure(s): BONE BIOPSY RIGHT FIRST AND SECOND TOES (Right Foot) Anesthesia type: general Vitals: 12/23/21 0415 BP: 134/75 Vitals: 12/23/21 0415 Pulse: 84 Vitals: 12/23/21 0415 Resp: 12 Vitals: 12/23/215 Temp: 36.6 ??C Vitals: 12/23/215 SpO2: 100% Patient Location: Inpatient Unit Level of Consciousness: awake, alert and oriented Pain Management: adequate analgesia Airway Patency: patent Respiratory Status: acceptable Cardiovascular Status: acceptable Post-Op Nausea: none Postoperative Hydration: euvolemic There were no known complications for this encounter. * Anesthesia Postprocedure Evaluation - Viet Araujo MD - 12/22/2021 7:51 AM CDT Anesthesia Post-op Note Lena Mcneal Procedure(s): BONE BIOPSY RIGHT FIRST AND SECOND TOES (Right Foot) Anesthesia type: general Vitals: 12/23/21414 BP: 134/75 Vitals: 12/23/21414 Pulse: 84 Vitals: 12/23/215 Resp: 12 Vitals: 12/23/215 Temp: 36.6 ??C Vitals: 12/23/215 SpO2: 100% Patient Location: PACU Level of Consciousness: awake, alert and oriented Pain Management: adequate analgesia Airway Patency: patent Respiratory Status: acceptable Cardiovascular Status: acceptable Post-Op Nausea: none Postoperative Hydration: euvolemic No complications documented. * Anesthesia Preprocedure Evaluation - Viet Araujo MD - 12/21/2021 4:41 PM CDT Anesthesia ROS/MED History Reviewed: Patient summary , Nursing notes , ECG, Family history anesthesia, Anesthesia history , Medications , Labs , Images/Studies , Unchecked boxes are not applicable Pre-Anesthetic State: alert, awake and responds appropriately Pulmonary neg pulmonary ROS Cardiovascular (+) hypertension, angina, hyperlipidemia Neuro/Psych (+) neuromuscular disease, (neuropathy), substance use, (alcohol use) Comments: Poor vision GI/Hepatic/Renal (+) renal disease, (Renal Calculi) Endo/Other (+) diabetes mellitus, arthritis, (OA) GENERAL COMMENTS ECHO SUMMARY: The left ventricular systolic function is normal. Estimated left ventricular ejection fraction is 55-60%. Left ventricular diastolic function is normal. Wall motion appears normal in all segments. No significant valvular abnormality. Past Medical History: No date: Arthritis No date: Charcot foot due to diabetes mellitus ([facility]) Comment: LEFT FOOT No date: COVID-19 No date: Diabetes mellitus ([facility]) No date: Diabetic neuropathy ([facility]) No date: High cholesterol No date: Hypertension No date: UTI (urinary tract infection) No date: Vision decreased Comment: blind right eye, poor vision left eye Past Surgical History: No date: AMPUTATION TOE; Left Comment: 2ND AND 3RD TOE No date: BLADDER SURGERY No date: EYE SURGERY 2004, 2020: HYSTERECTOMY Comment: hysterectomy, cervical surgery No date: RETINAL DETACHMENT SURGERY; Right Physical Evaluation Airway Mallampati: II TM Distance: >3 FB Neck ROM: normal Dental Pulmonary Pulmonary exam normal Breath sounds clear to auscultation Cardiovascular Rhythm: regular Rate: normal Cardiovascular exam normal Other findings: Blood pressure 132/81, pulse 89, temperature 36.8 ??C, temperature source Oral, resp. rate 18, height 5' 6 (1.676 m), weight 95.3 kg (210 lb 1.6 oz), last menstrual period 10/29/2004, SpO2 100 %. 12/21/21 0742 WBC 7.3 RBC 4.08* HGB 12.2 HCT 37.0* PLT 293 NA 138 K 4.7 CL 105 CO2 28.6 AGAP 4.4* BUN 26* CR 1.21* BUNCREATININ 21.5 GLU 162* CA 9.8 Anesthesia Plan ASA 3 Intravenous Induction Anesthesia type: general Plan for Airway: LMA and nasal cannula/simple face mask Plan for Post-op Pain Plan: oral pain medication, IV analgesics and as per surgeon Discussed potential risks of TIVA/General Anesthesia including but not limited to corneal abrasion,visual impairment or visual loss, mouth injury, dental damage, sore throat, hoarseness, esophageal injury, awareness under anesthesia, nerve injury due to positioning, aspiration, pneumonia, stroke, cardiac event, adverse drug reactions and . Informed Consent Anesthetic plan and risks discussed with patient of whom consent was obtained. . documented in this encounter Plan of Treatment Upcoming Encounters Date Type Department Care Team (Late st Contact Info) Description 03/14/2024 11:45 AM METAL PLATER Office Visit [facility]-[address] [phone] Marvin Mckeon MD Three [facility] [address] [place] [address] 03/20/2024 11:30 AM METAL PLATER Office Visit [facility] Family Medicine - [place] 100 [place] [phone] Abiodun Segura II, MD 100 [place], [place] [phone] documented as of this encounter Visit Diagnoses Not on filedocumented in this encounter Administered Medications Inactive Administered Medications - up to 3 most recent administrations Medication Order MAR Action Action Date Dose Rate Site fentaNYL (SUBLIMAZE) injection Intravenous, PRN, Starting on Viky 12/22/21 at 0712, Until Viky 12/22/21 at 0733, Anesthesia Intra-Op Given 12/22/2021 7:12 AM CDT 50 mcg lactated ringers infusion at 10 mL/hr, Intravenous, Continuous, Starting on Sun12/21/21 at 2015, Until Sun12/26/21 at 0801, Not to be given to patients with end stage renal disease or dialysis. Infuse at TKO rate, Pre-Op New Bag 12/22/2021 7:00 AM CDT lidocaine (PF) (XYLOCAINE) 2 % injection Intravenous, PRN, Starting on Viky 12/22/21 at 0705, Until Viky 12/22/21 at 0733, Anesthesia Intra-Op Given 12/22/2021 7:05 AM CDT 60 mg midazolam (VERSED) injection Intravenous, PRN, Starting on Viky 12/22/21 at 0659, Until Viky 12/22/21 at 0733, Anesthesia Intra-Op Given 12/22/2021 6:59 AM CDT 2 mg ondansetron (ZOFRAN) injection 4 mg 4 mg, Intravenous, Every 8 hours PRN, Nausea, Starting on 12/20/21 at 2019, Until 12/25/21 at 2014, IV push over 2-5 minutes. Given 12/25/2021 10:30 AM METAL PLATER 4 mg Given 12/22/2021 7:24 AM CDT 4 mg Given 12/20/2021 8:25 PM CDT 4 mg phenylephrine (SAL-SYNEPHRINE) injection Intravenous, PRN, Starting on Viky 12/22/21 at 0717, Until Viky 12/22/21 at 0733, Anesthesia Intra-Op Given 12/22/2021 7:21 AM CDT 80 mcg Given 12/22/2021 7:20 AM CDT 40 mcg Given 12/22/2021 7:17 AM CDT 40 mcg propofol (DIPRIVAN) IV bolus Intravenous, PRN, Starting on Viyk 12/22/21 at 0705, Until Viky 12/22/21 at 0733, Anesthesia Intra-Op Given 12/22/2021 7:05 AM CDT 140 mg documented in this encounter Additional Health Concerns Assessment Noted Time PHQ-9 Depression Total Score: 0 03/08/19 9:30 AM METAL PLATER documented as of this encounter Care Teams Body Stylist Relationship Specialty Start Date End Date Abiodun Segura II, MD 100 [place] [address] PCP - General FAMILY PRACTICE 03/09/21 documented as of this encounter
--- OUTSIDE RECORDS SUMMARY | 2024-03-02 22:28 | XMS_ITS | Encounter Summary ---
Author Organization [facility] Address [address] [place] [address]. [place], [place] [address] [place] [address] Care Team Providers Care Heel Slugger Name Role Phone Colton SILVEIRA MD, Abiodun Rushing Primary Care Provider Encounter Details Date Type Department Care Team (Latest Contact Info) Description 09/29/2021 Travel Social History Tobacco Use Types Packs/Day [...] suspected to have Coronavirus/COVID-19? No / Unsure 09/29/2021 8:49 AM CDT documented as of this encounter [...] Contact Info) Description 03/14/2024 11:45 AM METAL SHEET ROLLER OPERATOR Office Visit [facility]-[address] [phone] Marvin Mckeon MD Three [facility] [address] [place] [address] 03/20/2024 11:30 AM METAL SHEET ROLLER OPERATOR Office Visit [facility] Family Medicine - [address] [phone] Abiodun Segura II, MD [address] [place] [address] documented as of this encounter Visit Diagnoses Not on filedocumented in this encounter Additional Health Concerns Assessment Noted Time PHQ-9 Depression Total Score: 0 03/08/19 9:30 AM METAL SHEET ROLLER OPERATOR documented as of this encounter Care Teams Heel Slugger Relationship Specialty Start Date End Date Abiodun Segura II, MD 100 [place] [address] PCP - General FAMILY PRACTICE 03/09/21 documented as of this encounter
--- OUTSIDE RECORDS SUMMARY | 2024-03-02 22:28 | XMS_ITS | Encounter Summary ---
Author Organization [facility] Address [address] [place] [address]. [place], [place] [address] [place] [address] Care Team Providers Care Electronics Utility Worker Name Role Phone Colton SILVEIRA MD, Abiodun Rushing Primary Care Provider Encounter Details Date Type Department Care Team (Latest Contact Info) Description 10/29/2021 Travel Social History Tobacco Use Types Packs/Day [...] suspected to have Coronavirus/COVID-19? No / Unsure 10/29/2021 10:59 AM CDT documented as of this encounter [...] st Contact Info) Description 03/14/2024 11:45 AM BILLING SERVICES MANAGER Office Visit [facility]-[address] [phone] Marvin Mckeon MD Three [facility] [address] [place] [address] 03/20/2024 11:30 AM BILLING SERVICES MANAGER Office Visit [facility] Family Medicine - [address] [phone] Abiodun Segura II, MD [address] [place] [address] documented as of this encounter Visit Diagnoses Not on filedocumented in this encounter Additional Health Concerns Assessment Noted Time PHQ-9 Depression Total Score: 0 03/08/19 9:30 AM BILLING SERVICES MANAGER documented as of this encounter Care Teams Electronics Utility Worker Relationship Specialty Start Date End Date Abiodun Segura II, MD 100 [place] [address] PCP - General FAMILY PRACTICE 03/09/21 documented as of this encounter
--- OUTSIDE RECORDS SUMMARY | 2024-03-02 22:28 | XMS_ITS | Encounter Summary ---
Author Organization [facility] Address [address] [place] [address]. [place], [place] [address] [place] [address] Care Team Providers Care Credit Charge Authorizer Name Role Phone Colton SILVEIRA MD, Abiodun Rushing Primary Care Provider Encounter Details Date Type Department Care Team (Latest Contact Info) Description 07/02/2021 Travel Social History Tobacco Use Types Packs/Day [...] suspected to have Coronavirus/COVID-19? No / Unsure 07/02/2021 12:29 PM CDT documented as of this encounter Functional Status * RETIRED Are you deaf or do you have serious difficulty hearing Answer Date of Assessment Author Status No 04/15/2021 11:33 PM CERTIFIED SURGICAL TECHNOLOGIST Acti ve * RETIRED Are you blind or do you have serious difficulty seeing, even when wearing glasses? Answer Date of Assessment Author Status No 04/15/2021 11:33 PM CERTIFIED SURGICAL TECHNOLOGIST Acti ve * Do you have serious [...] st Contact Info) Description 03/14/2024 11:45 AM CERTIFIED SURGICAL TECHNOLOGIST Office Visit [facility]-[address] [phone] Marvin Mckeon MD [facility] [address] [place], [place] [phone] 03/20/2024 11:30 AM CERTIFIED SURGICAL TECHNOLOGIST Office Visit [facility] Family Medicine - [place] [address] [place] [phone] Abiodun Segura II, MD [address] [place] [phone] documented as of this encounter Visit Diagnoses Not on filedocumented in this encounter Additional Health Concerns Assessment Noted Time PHQ-9 Depression Total Score: 0 03/08/19 9:30 AM CERTIFIED SURGICAL TECHNOLOGIST documented as of this encounter Care Teams Credit Charge Authorizer Relationship Specialty Start Date End Date Abiodun Segura II, MD 100 [place] [address] PCP - General FAMILY PRACTICE 03/09/21 documented as of this encounter
--- OUTSIDE RECORDS SUMMARY | 2024-03-02 22:28 | XMS_ITS | Encounter Summary ---
Author Organization [facility] Address [address] [place] [address]. [place] [address] [place] [address] Care Team Providers Care Truck Terminal Manager Name Role Phone Colton SILVEIRA MD, Abiodun Rushing Primary Care Provider Reason for Visit * Reason Onset Date Comments Information 12/16/2021 Encounter Details Date Type Department Care Team (Late st Contact Info) Description 12/16/2021 Telephone [facility] Family Medicine [place] 100 [place] [address] Abiodun Segura II, MD [address] [place] [address] Information Social History Tobacco Use [...] Progress Notes * Sydney Cobos MA - 12/16/2021 1:39 PM CDT See prev. * Sydney Cobos MA - 12/16/2021 1:[address] Segura spoke with Dr. Langston already about Lena I will inform Dr. Segura that they admitted Lena so he can keep an eye on her progress notes,etc from the hospital * Angelika York - 12/16/2021 12:48 PM CDT Pt is going to [facility] to get admitted for her feet having blisters. left a msg for Dr. Segura to call him back. documented in this encounter Plan of Treatment Upcoming Encounters Date Type Department Care Team (Late st Contact Info) Description 03/14/2024 11:45 AM ROCK CRUSHER OPERATOR Office Visit [facility]-[address] [phone] Marvin Mckeon MD [address] [facility] [address] [place] [address] 03/20/2024 11:30 AM ROCK CRUSHER OPERATOR Office Visit [facility] [place] [phone] Abiodun Segura II, MD [address] [place] [address] documented as of this encounter Visit Diagnoses Not on filedocumented in this encounter Additional Health Concerns Assessment Noted Time PHQ-9 Depression Total Score: 0 03/08/19 9:30 AM ROCK CRUSHER OPERATOR documented as of this encounter Care Teams Truck Terminal Manager Relationship Specialty Start Date End Date Abiodun Segura II, MD [address] [place] [address] PCP - General FAMILY PRACTICE 03/09/21 documented as of this encounter
--- OUTSIDE RECORDS SUMMARY | 2024-03-02 22:28 | XMS_ITS | Encounter Summary ---
Author Organization [facility] Address [address] [place] [address]. [place] [address] [place] [address] Care Team Providers Care Night Coordinator Name Role Phone Colton SILVEIRA MD, Yasmin Rushing Primary Care Provider Reason for Visit * Reason Comments Foot Pain * Auth/Cert Specialty Diagnoses / Procedures Referred By Lyla t Referred To Contact Diagnoses Hypokalemia Diabetic foot ulcer ([facility] HHS/HCC) Diabetic foot infection ([facility] HHS/HCC) Diabetic foot infection ([facility]) Procedures NONE Wanda Prado MD [address] [place] [address] Phone: tel: [phone] fax: Referral ID Status Reason Start Date Expiration Date Visits Re quested Visits Authorized [id number] 1 1 Encounter Details Date Type Department Care Team (Late st Contact Info) Description 12/22/2021 7:00 AM CDT - 12/22/2021 8:03 AM CDT Surgery [facility] [place] [address] Hubert Cheek DPM [address], [place] [address] BONE BIOPSY RIGHT FIRST AND SECOND TOES Surgery Details Date/Time Status Location OR Service Patient Class Case Cl ass Case Type Trauma Case? 12/22/2021 7:00 AM Posted [facility] OR OR 2 Podiatry Inpatient E - Elective No Panel 1 Procedure LRB Anes Op Region Wound Class Comments BONE BIOPSY RIGHT FIRST AND SECOND TOES Right General Foot Clean Contaminated Surgeon Surgeon Role Service Panel Hubert Cheek, DPM Primary Podiatry 1 documented in this encounter [...] Sign Reading Time Taken Comments Blood Pressure 125/69 12/22/2021 8:00 AM CDT Pulse 77 12/22/2021 8:00 AM CDT Temperature 37 ??C (98.6 ??F) 12/22/2021 7:32 AM CDT Respiratory Rate 11 12/22/2021 8:00 AM CDT Oxygen Saturation 95% 12/22/2021 8:00 AM CDT Inhaled Oxygen Concentration - - Weight 95.3 kg (210 lb 1.6 oz) 12/19/2021 4:09 A M CDT Height 167.6 cm (5' 6 ) 12/16/2021 [...] office or shopping? No 12/17/2021 2:10 AM EMILEET Amanda Qureshi RN Act mando * RETIRED [...] documented in this encounter Discharge Summaries * Roxana Merino ELLEN Chandler - 12/26/2021 1:56 PM CST Images from the original note were not included. Hospitalist Discharge Summary Patient ID: Tyson Mcneal. female. 1970. Admit date: 12/16/2021 1:48 PM Discharge date and time: 12/26/21 Admitting Physician: Wanda Maynard MD Attending Physician: ELLEN Justice Primary Care Physician: YASMIN SEGURA MD Discharge Physician: ELLEN JUSTICE Hospital Diagnosis: Diabetic foot infection (CMS/[facility]) Admission Condition: poor Discharged Condition: Good Code [...] an evaluation of her right foot per carpet inspector finished recommendations as he was concerned about osteomyelitis. [...] EXTREMITY VASCULAR LAB Pat.Name: TYSON MCNEAL Pat.ID: [id number] .Date: 12/16/2021 Refer.MD: Yasmin Segura Exam Time: 2:52:00 PM Study Type:MARINO VS Arterial Doppler Legs NOHEMY Height: 66in Age: 2 1970,51Y Sex: FEMALE Sonogrphr: Shahla Toscano RDTX, RVT Pat. Stat.:Outpatient Room: ER History / Clinical: Rt foot wounds. L>R severe leg pain. Ltfoot cool to touch with weak pulse. PMH- DM. HTN. HLD. neurop. L2, L3 amp. BMI 39. Prior 06/21/21- Rt1.12, Lt 1.24 Procedures: Doppler waveforms, Digit PPG, Systolic Pressures w/ADRIANA Race: -British ++++++++++++++++++++++++++++++++++++ SUMMARY: ++++++++++++++++++++++++++++++++++++ Joceline ADRIANA Criteria: >1.30 [...] ++++++++++++++++++++++++++++++++++++ FINDINGS: ++++++++++++++++++++++++++++++++++++++++++++++++++++++++++++++++++++++++ MEASUREMENTS: ++++++++++++++++++++++++++++++++++++ DOPPLER Left NEONATAL CRITICAL CARE NURSE NEONATAL CRITICAL CARE NURSE PSV 123 cm/s Left Dist Pop A Dist Pop A PSV 94.2 cm/s Left Dist GLUING MACHINE OFFBEARER Dist GLUING MACHINE OFFBEARER PSV 46.2 cm/s Left Dist DOMINGA Dist DOMINGA PSV 56.5 cm/s Right NEONATAL CRITICAL CARE NURSE NEONATAL CRITICAL CARE NURSE PSV 145 cm/s Right Dist Pop A Dist Pop A PSV 107 cm/s Right Dist GLUING MACHINE OFFBEARER Dist GLUING MACHINE OFFBEARER PSV 56.5 cm/s Right Dist DOMINGA Dist [...] 12/16/21 ECG 12 lead ?? Narrative ?? [place] Test Date: 2021-12-16 Pat Name: TYSON MCNEAL Department: Room: 4 Gender: Female Division Chief: : 1970 Requested By: DESIREE MACKENZIE Order Number: [id number] Reading MD: Carroll Varela Measurements Intervals [place] Rate: 89 P: 34 CA: 160 QRS: 15 QRSD: 87 T: 102 QT: 364 QTc: 445 Interpretive Statements SINUS RHYTHM MINIMAL VOLTAGE CRITERIA FOR LVH, CONSIDER NORMAL VARIANT [MEETS CRITERIA IN ONE OF: R(aVL), S(V1), R(V5), R(V5/V6)+S(V1)] NONSPECIFIC T-WAVE ABNORMALITY Compared to ECG 07/10/2021 14:18:26 Ventricular premature complex(es) no longer present T-wave abnormality still present ?? 12/20/21 MRI LT FOOT WO CON IMPRESSION: [...] pelvis, and hips Discharge Exam: Filed Vitals: 12/25/21200212/26/21 0013 12/26/21 0429 12/26/21 [...] weekly labs, PCP agreed to follow ?? 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 * Diabetic Foot Ulcer Discharge Instructions (Zimbabwean) documented in this encounter Medications at Time [...] arthropathy, with long-term current use of insulin ([facility]) Inject 3 mg into the skin weekly. 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, with long-term current use of insulin ([facility]) USE 1 STRIP TO CHECK GLUCOSE TWICE DAILY 200 strip 3 2 01/02/20 22 HUMALOG MIX 75/25 (75-25) 100 UNIT/ML SuspensionIndicatio ns:Type 2 diabetes mellitus with retinopathy, with long-term current use of insulin, macular edema presence unspecified, unspecified laterality, unspecified retinopathy severity ([facility]) Inject 60 units ;subcutaneously in the morning and 55 in the evening 40 mL 3 2 01/02/20 22 HYDROcodone-acetami nophen (NORCO) 5-325 MG tabletIndications:A cute [...] needed for Nausea. 20 tablet 2 10/12/19 RELION INSULIN SYRINGE 31G X 15/64 1 ML MiscIndications:Typ e 2 diabetes mellitus with diabetic neuropathic arthropathy, with long-term current use of insulin ([facility]) USE 1 SYRINGE SUBCUTANEOUSLY TWICE DAILY 100 [...] from Medicare (Subsequent IMM) Signed Copy delivered [employer] * David Grimes RN - 12/26/2021 2:35 [...] for this hospitalization Outcome: Adequate for Discharge [employer] * Shana Martinez, SUPERVISOR PRESS ROOM - 12/26/2021 2:00 PM CST Spoke with Arelis at [facility], nurse will be here around 2:00 to complete a teaching with patient and daughter. [facility] has accepted and will see patient tomorrow. I spoke with patient and daughter at bedside to inform them of above, they are agreeable. [place] 12/26/21 5188 Discharge Planning Living Arrangements Spouse/Significant other;Children Support Systems Spouse/Significant other;Children;Family Members Type of Residence Private residence Assistance/Services Needed Yes Type of Assistance Needed Home Health Home Health services RN IV Infusion at discharge Yes Patient expects to be discharged to: Home DME Needed at Discharge No [employer] * ELLEN Justice - 12/26/2021 10:13 AM [...] 0552 12/23/21 0355 12/24/21 0345 12/25/21 0342 12/26/21 0349 WBC 8.3 7.3 8.6 8.2 7.4 9.3 [...] AUTOMATED DIFFERENTIAL Recent Labs Lab 12/20/21 0940 12/21/21 0742 12/22/21 0552 12/23/21 0355 12/24/21 0345 12/25/21 0342 12/26/21 0349 NA 137 138 136 135* 137 [...] COLOR (U) LIGHT YELLOW TRANSPARENCY CLEAR Specific [place] (U) 1.024 1.001 - 1.030 U PH [...] EXTREMITY VASCULAR LAB Pat.Name: TYSON MCNEAL Pat.ID: [id number] .Date: 12/16/2021 Refer.MD: Yasmin Segura Exam Time: [...] waveforms, Digit PPG, Systolic Pressures w/ADRIANA Race: -British ++++++++++++++++++++++++++++++++++++ SUMMARY: ++++++++++++++++++++++++++++++++++++ Joceline ADRIANA Criteria: >1.30 = falsely elevated, calcified vessels; 1.00-1.29 = no signif ischemia at rest ; .80-.99 = mild PAD, asymptomatic; .50-.79 = moderate PAD, claudication; <.50 = severe PAD, rest pain ; <.30 = critical PAD, necrosis, poor healing [...] FINDINGS: ++++++++++++++++++++++++++++++++++++ ++++++++++++++++++++++++++++++++++++ MEASUREMENTS: ++++++++++++++++++++++++++++++++++++ DOPPLER Left NEONATAL CRITICAL CARE NURSE NEONATAL CRITICAL CARE NURSE PSV 123 cm/s Left Dist Pop A Dist Pop A PSV 94.2 cm/s Left Dist GLUING MACHINE OFFBEARER Dist GLUING MACHINE OFFBEARER PSV 46.2 cm /s Left Dist DOMINGA Dist DOMINGA PSV 56.5 cm/s Right NEONATAL CRITICAL CARE NURSE NEONATAL CRITICAL CARE NURSE PSV 145 cm/s Right Dist Pop A Dist Pop A HFP517 cm/s Right Dist GLUING MACHINE OFFBEARER Dist GLUING MACHINE OFFBEARER PSV 56.5 cm/s Right Dist DOMINGA Dist [...] within the colon. Ordered By: WANDA MERCER Electronically Signed By: Mercy Irving MD on :06 PM Interpreted By: Mercy Irving MD, 12/16/2021 8:04 [...] encounter of 12/16/21 ECG 12 lead Narrative [place] Test Date: 2021-12-16 Pat Name: TYSON MCNEAL Department: Room: 4 Gender: Female Division Chief: : 1970 Requested By: DESIREE MACKENZIE Order Number: [id number] Reading MD: Carroll Varela Measurements Intervals [place] Rate: 89 P: 34 CA: 160 QRS: 15 QRSD: 87 T: 102 [...] who can monitor his weekly labs ?? 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 Pt confirmed choice of [facility] for nursing in the home. SW contactedthe [facility] intake group and Rachel Pena with [facility] weekend staffing regarding the referral. They are [...] CM resuming care tomorrow and will finalizeplans. [employer] * ELLEN Justice - 12/25/2021 2:46 PM [...] 133/76 Pulse: 86 78 79 87 Resp: 20 12 12 20 Temp: 97.9 ??F (36.6 ??C) 97.7 ??F [...] 0530 12/20/21 0940 12/21/21 0742 12/22/21 0552 12/23/215 12/24/215 12/25/21341 NA 137 137 138 136 135* 137 [...] the last 168 hours. Recent Labs Lab 12/25/21341 CPK 72 No results for input(s): LACTICACID, PROCT in the last 168 hours. Results for orders placed or performed during the hospital encounter of 08/11/19 URINALYSIS, AUTO, COMPLETE Result Value Ref Range Specimen Type URINE CLEAN CATCH COLOR (U) LIGHT YELLOW TRANSPARENCY CLEAR Specific [place] (U) 1.024 1.001 - 1.030 U PH [...] LOWER EXTREMITY VASCULAR LAB Pat.Name: TYSON MCNEAL Pat.ID:[id number] .Date: 12/16/2021 Refer.MD: Yasmni Segura Exam Time: 2:52:00 PM Study Type:MARINO [...] waveforms, Digit PPG, Systolic Pressures w/ADRIANA Race: -British ++++++++++++++++++++++++++++++++++++ SUMMARY: ++++++++++++++++++++++++++++++++++++ Joceline ADRIANA Criteria: >1.30 [...] ++++++++++++++++++++++++++++++++++++ FINDINGS: ++++++++++++++++++++++++++++++++++++++++++++++++++++++++++++++++++++++++ MEASUREMENTS: ++++++++++++++++++++++++++++++++++++ DOPPLER Left NEONATAL CRITICAL CARE NURSE NEONATAL CRITICAL CARE NURSE PSV 123 cm/s Left Dist Pop A Dist Pop A PSV 94.2 cm/s Left Dist GLUING MACHINE OFFBEARER Dist GLUING MACHINE OFFBEARER PSV 46.2 cm/s Left Dist DOMINGA Dist DOMINGA PSV 56.5 cm/s Right NEONATAL CRITICAL CARE NURSE NEONATAL CRITICAL CARE NURSE PSV 145 cm/s Right Dist Pop A Dist Pop A PSV 107 cm/s Right Dist GLUING MACHINE OFFBEARER Dist GLUING MACHINE OFFBEARER PSV 56.5 cm/s Right Dist DOMINGA Dist [...] of 12/16/21 [address] [facility] [address] [place] [address] Test Date: 2021-12-16 Pat Name: TYSON MCNEAL Department: 41 Room: 4 Gender: Female Division Chief: : 1970 Requested By: DESIREE MACKENZIE Order Number: [id number] Reading MD: Carroll Varela Measurements Intervals [place] Rate: 89 P: 34 CA: 160 QRS: 15 QRSD: 87 T: 102 [...] who can monitor his weekly labs ?? 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 MRI left foot ordered. > Negative for osteo ?? Diabetes Hold Sitagliptin and Trulicity Continue home basal insulin accu checks [facility]-s/s protocol A1c=7.7 on 12/08/21 Pt had [...] Major Edmond MD at 12/25/2021 8:54 PM [employer] * ELLEN Justice - 12/24/2021 2:42 PM CDT Hospitalist Daily Progress Note Subjective Patient seen and examined at the bedside, she states she slept much better last night and she is feeling much better today. ID will see her today to give recommendations. Bone biopsy is negative thusfar. No other acute issues noted. Objective Filed Vitals: 12/23/21 19512/24/21 0017 12/24/21 0422 12/24/21 0900 BP: 126/80 [...] DIFFERENTIAL AUTOMATED DIFFERENTIAL Recent Labs Lab 12/18/21 0512/19/21 0530 12/20/21 0940 12/21/21 0742 12/22/21 0552 [...] COLOR (U) LIGHT YELLOW TRANSPARENCY CLEAR Specific [place] (U) 1.024 1.001 - 1.030 U PH [...] LOWER EXTREMITY VASCULAR LAB Pat.Name: TYSON MCNEAL Pat.ID:[id number] .Date: 12/16/2021 Refer.MD: Yasmin Segura Exam Time: 2:52:00 PM Study Type:MARINO VS Arterial Doppler Legs NOHEMY Height: 66in Age: 2 1970,51Y Sex: FEMALE Sonogrphr: Shahla Toscano RDTX, T Pat. Stat.:Outpatient Room: ER History / Clinical: Rt foot wounds. L>R severe leg pain. Lt foot cool to touch with weak pulse. PMH- DM. HTN. HLD. neurop. L2, L3 amp. BMI 39. Prior 06/21/21- Rt 1.12, Lt 1.24 Procedures: Doppler waveforms, Digit PPG, Systolic Pressures w/ADRIANA Race: -British ++++++++++++++++++++++++++++++++++++ SUMMARY: ++++++++++++++++++++++++++++++++++++ Joceline ADRIANA Criteria: >1.30 [...] FINDINGS: ++++++++++++++++++++++++++++++++++++ ++++++++++++++++++++++++++++++++++++ MEASUREMENTS: ++++++++++++++++++++++++++++++++++++ DOPPLER Left NEONATAL CRITICAL CARE NURSE NEONATAL CRITICAL CARE NURSE PSV 123 cm/s Left Dist Pop A Dist Pop A PSV 94.2 cm/s Left Dist GLUING MACHINE OFFBEARER Dist GLUING MACHINE OFFBEARER PSV 46.2 cm/s Left Dist DOMINGA Dist DOMINGA PSV 56.5 cm/s Right NEONATAL CRITICAL CARE NURSE NEONATAL CRITICAL CARE NURSE PSV 145 cm/s Right Dist Pop A Dist Pop A PSV 107 cm/s Right Dist GLUING MACHINE OFFBEARER Dist GLUING MACHINE OFFBEARER PSV 56.5 cm/s Right Dist DOMINGA Dist [...] Ordered By: DESIREE MACKENZIE Interpreted By: Angelito Tdiwell, 12/16/2021 2:50 PM XR FOOT LT 2V [...] encounter of 12/16/21 ECG 12 lead Narrative [place] Test Date: 2021-12-16 Pat Name: TYSON MCNEAL Department: 41 Room: 4 Gender: Female Division Chief: : 1970 Requested By: DESIREE MACKENZIE Order Number: [id number] Reading MD: Carroll Varela Measurements Intervals [place] Rate: 89 P: 34 CA: 160 QRS: 15 QRSD: 87 T: 102 [...] who can monitor his weekly labs ?? 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 Lieutenant General has provided a complete list of the following types of agencies, HHC and Infusion Services. , to Patient utilizing the aroundtheway tablet. I have explainedthat the tablets will display becerril quality metrics along with any entity in which [facility] has a vested i nterest to disclose [...] need for prior auth for the daptomycin.. Katie sent the referral to IV and Resp [...] toe amputations of left foot ordered vancomycin bgerzgsw-ig-scfu for diabetic foot infection. Patient received a [...] Reduced Risk for Falls/Injury Outcome: Progressing * Rudi AmbrocioD - 12/23/2021 4:02 PM CDT Images from [...] toe amputations of left foot ordered vancomycin ruvnyjkg-br-flsg for diabetic foot infection. Patient received a [...] follow, thank you. Annika Pringle, PharmD Candidate Rudi PadillaD, BCPS * Shana Martinez, SUPERVISOR PRESS ROOM - 12/23/2021 3:56 PM CDT 12/23 Discussed [...] COLOR (U) LIGHT YELLOW TRANSPARENCY CLEAR Specific [place] (U) 1.024 1.001 - 1.030 U PH [...] LOWER EXTREMITY VASCULAR LAB Pat.Name: TYSON MCNEAL Pat.ID:[id number] .Date: 12/16/2021 Refer.MD: Yasmin Segura Exam Time: 2:52:00 PM Study Type:MARINO VS Arterial Doppler Legs NOHEMY Height: 66in Age: 2 1970,51Y Sex: FEMALE Sonogrphr: Shahla Toscano RDTX, RVT Pat. Stat.:Outpatient Room: ER History / Clinical: Rt foot wounds. L>R severe leg pain. Lt foot cool to touch with weak pulse. PMH- DM. HTN. HLD. neurop. L2, L3 amp. BMI 39. Prior 06/21/21- Rt 1.12, Lt 1.24 Procedures: Doppler waveforms, Digit PPG, Systolic Pressures w/ADRIANA Race: -British ++++++++++++++++++++++++++++++++++++ SUMMARY: ++++++++++++++++++++++++++++++++++++ Joceline ADRIANA Criteria: >1.30 [...] ++++++++++++++++++++++++++++++++++++ FINDINGS: ++++++++++++++++++++++++++++++++++++++++++++++++++++++++++++++++++++++++ MEASUREMENTS: ++++++++++++++++++++++++++++++++++++ DOPPLER Left NEONATAL CRITICAL CARE NURSE NEONATAL CRITICAL CARE NURSE PSV 123 cm/s Left Dist Pop A Dist Pop A PSV 94.2 cm/s Left Dist GLUING MACHINE OFFBEARER Dist GLUING MACHINE OFFBEARER PSV 46.2 cm/sLeft Dist DOMINGA Dist DOMINGA PSV 56.5 cm/s Right NEONATAL CRITICAL CARE NURSE NEONATAL CRITICAL CARE NURSE PSV 145 cm/s Right Dist Pop A Dist Pop A PSV 107cm/s Right Dist GLUING MACHINE OFFBEARER Dist GLUING MACHINE OFFBEARER PSV 56.5 cm/s Right Dist DOMINGA Dist [...] of 12/16/21 ECG [address] [place] Test Date: 2021-12-16 Pat Name: TYSON MCNEAL Department: Room: 4 Gender: Female Division Chief: : 1970 Requested By: DESIREE MACKENZIE Order Number: [id number] Reading MD: Carroll Varela Measurements Intervals [place] Rate: 89 P: 34 CA: 160 QRS: 15 QRSD: 87 T: 102 [...] easily. Darian SOUSA, RN, EMTP * Shana Martinez, SUPERVISOR PRESS ROOM - 12/22/2021 3:51 PM CDT 12/22 Awaiting [...] Recent Labs Lab 12/16/21 1420 12/17/21 0610 12/18/2152912/19/2152912/20/2193912/21/2142 12/22/21 0552 WBC 12.1* 7.9 7.9 8.6 [...] DIFFERENTIAL AUTOMATED DIFFERENTIAL Recent Labs Lab 12/16/21 14212/17/2110 12/18/2130 12/19/2152912/20/2140 12/21/2142 12/22/21 0552 NA 137 137 139 137 [...] COLOR (U) LIGHT YELLOW TRANSPARENCY CLEAR Specific [place] (U) 1.024 1.001 - 1.030 U PH [...] EXTREMITY VASCULAR LAB Pat.Name: TYSON MCNEAL Pat.ID: [id number] .Date: 12/16/2021 Refer.MD: Yasmin Segura Exam Time: 2:52:00 PM Study Type:MARINO VS Arterial Doppler Legs NOHEMY Height: 66in Age: 2 1970,51Y Sex: FEMALE Sonogrphr: Shahla Toscano RDMS, RVT Pat. Stat.:Outpatient Room: ER History / Clinical: Rt foot wounds. L>R severe leg pain. Ltfoot cool to touch with weak pulse. PMH- DM. HTN. HLD. neurop. L2, L3 amp. BMI 39. Prior 06/21/21- Rt1.12, Lt 1.24 Procedures: Doppler waveforms, Digit PPG, Systolic Pressures w/ADRIANA Race: -British ++++++++++++++++++++++++++++++++++++ SUMMARY: ++++++++++++++++++++++++++++++++++++ Joceline ADRIANA Criteria: >1.30 [...] ++++++++++++++++++++++++++++++++++++ FINDINGS: ++++++++++++++++++++++++++++++++++++++++++++++++++++++++++++++++++++++++ MEASUREMENTS: ++++++++++++++++++++++++++++++++++++ DOPPLER Left NEONATAL CRITICAL CARE NURSE NEONATAL CRITICAL CARE NURSE PSV 123 cm/s Left Dist Pop A Dist Pop A PSV 94.2 cm/s Left Dist GLUING MACHINE OFFBEARER Dist GLUING MACHINE OFFBEARER PSV 46.2 cm/s Left Dist DOMINGA Dist DOMINGA PSV 56.5 cm/s Right NEONATAL CRITICAL CARE NURSE NEONATAL CRITICAL CARE NURSE PSV 145 cm/s Right Dist Pop A Dist Pop A PSV 107 cm/s Right Dist GLUING MACHINE OFFBEARER Dist GLUING MACHINE OFFBEARER PSV 56.5 cm/s Right Dist DOMINGA Dist [...] encounter of 12/16/21 ECG 12 lead Narrative [place] Test Date: 2021-12-16 Pat Name: TYSON MCNEAL Department: 41 Room: 4 Gender: Female Division Chief: : 1970 Requested By: DESIREE MACKENZIE Order Number: [id number] Reading MD: Carroll Varela Measurements Intervals [place] Rate: 89 P: 34 CA: 160 QRS: 15 QRSD: 87 T: 102 [...] at 12/22/2021 5:23 PM CDT * Salma Martinez PharmD - 12/22/2021 1:58 PM CDT Vancomycin [...] toe amputations of left foot ordered vancomycin fzwbpchq-kw-lnme for diabetic foot infection. Patient received a [...] Will continue to follow, thank you. Annika Prignle, RudiD Candidate Salma Martinez PharmD, BCPS * Nallely [...] denies recent N/F/V/C/CP/SOB/calf pain. O-- Filed Vitals: 12/21/21195422 0015 12/22/21 0459 12/22/21 0610 BP: 116/59 112/67 114/72 (!) 144/90 Pulse: 94 82 86 87 Resp: Temp: 98.1 ??F (36.7 ??C) 97.9 ??F [...] tablet 10 mg 10 mg Oral nightly Roxana Chandler, APNP 10 mg at 12/21/212032 ??? atorvastatin (LIPITOR) tablet 20 mg 20 mg Oral Daily Wanda Mercer APRN 20 mg at 12/21/21 0913 ??? bisacodyl (DULCOLAX) suppository 10 mg 10 mg Rectal Daily PRN Wanda Mercer DATA REPORTING ANALYST ??? bisacodyl EC (DULCOLAX) tablet 5 mg 5 mg Oral Daily PRN Wnada Mercer APRN ??? cefTRIAXone (ROCEPHIN) 1 g in sodium chloride 0.9 % 50 mL IVPB 1 g Intravenous Q24H Wanda Mercer DATA REPORTING ANALYST Stopped at 12/21/21 1514 ??? chlorhexidine (PERIDEX) 0.12 % solution 15 mL 15 mL Mouth/Throat PRN Hubert Cheek DPM ??? cyclobenzaprine (FLEXERIL) tablet 10 mg 10 mg Oral TID PRN Wanda Ronnie Kian, DATA REPORTING ANALYST ??? dextrose 10 % bolus infusion 125-250 mL 125-250 mL Intravenous PRN Wanda Trujillo Kian DATA REPORTING ANALYST ??? docusate sodium (COLACE) capsule 100 mg 100 mg Oral BID David Schofield PA-C 100 mg at 12/20/21 0919 ??? glucagon injection 1 mg 1 mg Intramuscular Once PRN Wanda Ronnie Kian DATA REPORTING ANALYST ??? glucose oral gel 32-64 mL 15-30 g of dextrose Oral PRN Wanda Trujillo Kian DATA REPORTING ANALYST ??? heparin (porcine) injection 5,000 Units 5,000 Units Subcutaneous 2 times per day Wanda Trujillo Kian DATA REPORTING ANALYST 5,000 Units at 12/21/212032 ??? HYDROcodone-acetaminophen (NORCO) 5-325 MG tablet 1 tablet 1 tablet Oral Q6H PRN Eduardo Aguillon, DATA REPORTING ANALYST 1 tablet at 12/21/21 1904 ??? hydrOXYzine (VISTARIL) capsule 25 mg 25 mg Oral Nightly at bedtime Wanda Ronnie Kian DATA REPORTING ANALYST 25 mg at 12/21/212032 ??? insulin glargine (LANTUS) injection 24 Units 0.25 Units/kg Subcutaneous Nightly at bedtime RoxanaAngelique Chandler, APNP 24 Units at 12/21/212032 And ??? insulin lispro (HUMALOG) injection 8 Units 0.08 Units/kg Subcutaneous TID Roxana Angelique Chandler,APNP 8 Units at 12/21/21 173 ??? insulin lispro (HUMALOG) injection 0-16 Units 0-16 Units Subcutaneous TID Eduardo Aguillon, APRN10 Units at 12/21/21 173 And ??? insulin lispro (HUMALOG) injection 0-8 Units 0-8 Units Subcutaneous Nightly at bedtime Eduardo Aguillon, DATA REPORTING ANALYST 7 Units at 12/21/212031 ??? lactated ringers infusion Intravenous Continuous Viet Araujo MD ??? linaCLOtide (LINZESS) capsule 145 mcg 145 mcg Oral QAM AC Roxana Angelique Chandler, APNP 145 mcg at 12/21/21 0626 ??? morphine injection 1 mg 1 mg Intravenous Q3H PRN Wanda Ronnie Kian DATA REPORTING ANALYST 1 mg at 12/19/212157 ??? naLOXone (NARCAN) [...] Bone biopsy pending. HUBERT HERNANDEZ MD 12/21/2021 [employer] * Salma Martinez, PharmD - 12/21/2021 4:12 PM CDT Vancomycin [...] toe amputations of left foot ordered vancomycin oexlnnoj-de-cdwf for diabetic foot infection. Patient received a [...] Salma Martinez PharmD, BCPS * Shana Martinez, SUPERVISOR PRESS ROOM - 12/21/2021 3:58 PM CDT 12/21 Discussed in rounds, podiatry consulted for possible bone biopsy cw * Roxana ELLEN Jacques - 12/21/2021 10:11 AM CDT Hospitalist Daily [...] 0530 12/19/21 0530 12/20/21 0940 12/21/21 0742 WBC 12.1* 7.9 7.9 8.6 [...] 0530 12/19/21 0530 12/20/21 0940 12/21/21 0742 NA 137 137 139 [...] COLOR (U) LIGHT YELLOW TRANSPARENCY CLEAR Specific [place] (U) 1.024 1.001 - 1.030 U PH [...] LOWER EXTREMITY VASCULAR LAB Pat.Name: TYSON MCNEAL Pat.ID:[id number] .Date: 12/16/2021 Refer.MD: Yasmin Segura Exam Time: [...] waveforms, Digit PPG, Systolic Pressures w/ADRIANA Race: -British ++++++++++++++++++++++++++++++++++++ SUMMARY: ++++++++++++++++++++++++++++++++++++ Joceline ADRIANA Criteria: >1.30 [...] FINDINGS: ++++++++++++++++++++++++++++++++++++ ++++++++++++++++++++++++++++++++++++ MEASUREMENTS: ++++++++++++++++++++++++++++++++++++ DOPPLER Left NEONATAL CRITICAL CARE NURSE NEONATAL CRITICAL CARE NURSE PSV 123 cm/s Left Dist Pop A Dist Pop A PSV 94.2 cm/s Left Dist GLUING MACHINE OFFBEARER Dist GLUING MACHINE OFFBEARER PSV 46.2 cm/s Left Dist DOMINGA Dist DOMINGA PSV 56.5 cm/s Right NEONATAL CRITICAL CARE NURSE NEONATAL CRITICAL CARE NURSE PSV 145 cm/s Right Dist Pop A Dist Pop A PSV 107 cm/s Right Dist GLUING MACHINE OFFBEARER Dist GLUING MACHINE OFFBEARER PSV 56.5 cm/s Right Dist DOMINGA Dist [...] 1.08 Left TBI TBI 0.676 Unsigned Hubert Heranndez M.D. XR ABD KUB Result [...] within the colon. Ordered By: WANDA MERCER Electronically Signed By: Mercy Irving MD on :06 PM Interpreted By: Mercy Irving MD, 12/16/2021 8:04 [...] encounter of 12/16/21 ECG 12 lead Narrative [address] Test Date: 2021-12-16 Pat Name: TYSON MCNEAL Department: Room: 4 Gender: Female Division Chief: : 1970 Requested By: DESIREE MACKENZIE Order Number: [id number] Reading MD: Carroll Varela Measurements Intervals [place] Rate: 89 P: 34 CA: 160 QRS: 15 QRSD: 87 T: 102 [...] elimination within specified parameters Outcome: Progressing * Anny Hearn, PharmD - 12/20/2021 5:09 PM CDT Vancomycin Pharmacy [...] toe amputations of left foot ordered vancomycin [id number] for diabetic foot infection. Patient received a [...] due to small target. Diabetic foot infection ([facility]) Current Facility-Administered Medications Medication Dose Route Frequency Provider Last Rate Last Admin ??? acetaminophen (TYLENOL) tablet 650 mg 650 mg Oral Q4H PRN Eduardo Aguillon, DATA REPORTING ANALYST ??? amLODIPine (NORVASC) tablet 10 mg 10 mg Oral nightly Crystal M Brown, DATA REPORTING ANALYST 10 mg at 12/19/212157 ??? atorvastatin (LIPITOR) tablet 20 mg 20 mg Oral Daily Crystal M Brown, DATA REPORTING ANALYST 20 mg at 12/20/21918 ??? bisacodyl (DULCOLAX) suppository 10 mg 10 mg Rectal Daily PRN Crystal M Brown, DATA REPORTING ANALYST ??? bisacodyl EC (DULCOLAX) tablet 5 mg 5 mg Oral Daily PRN Crystal M Brown, DATA REPORTING ANALYST ??? cefTRIAXone (ROCEPHIN) 1 g in sodium chloride 0.9 % 50 mL IVPB 1 g Intravenous Q24H Wanda Mercer APRN Stopped at 12/20/21 1337 ??? cyclobenzaprine (FLEXERIL) tablet 10 mg 10 mg Oral TID PRN Wanda Ronnie Kian DATA REPORTING ANALYST ??? dextrose 10 % bolus infusion 125-250 mL 125-250 mL Intravenous PRN Wanda Ronnie Kian DATA REPORTING ANALYST ??? docusate sodium (COLACE) capsule 100 mg 100 mg Oral BID David Schofield PA-C 100 mg at 12/20/21918 ??? glucagon injection 1 mg 1 mg Intramuscular Once PRN Wanda Mercer DATA REPORTING ANALYST ??? glucose oral gel 32-64 mL 15-30 g of dextrose Oral PRN Wanda Ronnie Kian DATA REPORTING ANALYST ??? heparin (porcine) injection 5,000 Units 5,000 Units Subcutaneous 2 times per day Wanda Mercer APRN 5,000 Units at 12/20/21918 ??? hydroCHLOROthiazide (HYDRODIURIL) tablet 25 mg 25 mg Oral QAM Wanda Mercer APRN 25 mg at 12/20/21918 ??? HYDROcodone-acetaminophen (NORCO) 5-325 MG tablet 1 tablet 1 tablet Oral Q6H PRN Eduardo Aguillon, DATA REPORTING ANALYST ??? hydrOXYzine (VISTARIL) capsule 25 mg 25 mg Oral Nightly at bedtime Wanda Mercer APRN 25 mg at 12/19/212200 ??? insulin glargine (LANTUS) injection 12 Units 0.125 Units/kg Subcutaneous Nightly at bedtime Eduardo Aguillon, DATA REPORTING ANALYST ??? insulin lispro (HUMALOG) injection 0-16 Units 0-16 Units Subcutaneous TID AC Eduardo Aguillon, DATA REPORTING ANALYST And ??? insulin lispro (HUMALOG) injection 0-8 Units 0-8 Units Subcutaneous Nightly at bedtime Eduardo Aguillon, DATA REPORTING ANALYST ??? linaCLOtide (LINZESS) capsule 145 mcg 145 mcg Oral QAM AC Roxana Chandler APSUSAN ??? lisinopril (PRINIVIL) tablet 40 mg 40 mg Oral QPM Wanda Mercer DATA REPORTING ANALYST 40 mg at 12/19/212157 ??? morphine injection 1 mg 1 mg Intravenous Q3H PRN Wanda Trujillo YENI Mercer 1 mg at 12/19/212157 ??? naLOXone (NARCAN) injection 0.4 mg 0.4 mg Intravenous PRN Wanda Ronnie YENI Mercer ??? pantoprazole EC (PROTONIX) tablet 40 mg 40 mg Oral Daily Wanda Ronnie YENI Mercer 40 mg at 12/20/21 0919 ??? polyethylene [...] IVPB (XELLIA) 1,250 mg Intravenous Q24H Eduardo Aguillon APRN Stopped at 12/19/215 ??? vancomycin pharmacy to dose placeholder Intravenous See Admin Instructions Wanda Ronnie YENI Mercer Allergies Allergen Reactions ??? Fish Oil Unknown [...] HUBERT HERNANDEZ MD 12/20/2021 * Shana Martinez, SUPERVISOR PRESS ROOM - 12/20/2021 3:55 PM CDT 12/20 Discussed in rounds, awaiting MRI and vascular surgery recommendations cw * Narda Sanchez RN - 12/20/2021 3:36 PM CDT This RN called MRI to check on possible time for Lety's Left foot MRI. [facility] [...] parameters Outcome: Met This Shift * Eduardo Aguillon, DATA REPORTING ANALYST - 12/20/2021 11:04 AM CDT Hospitalist Daily Progress Note Subjective She is resting in bed on exam. She still continues with left greater than right foot pain. She is unsure of the plan going forward, if she will have a bone biopsy. Her constipation has resolved afterresuming her home medication, Linzess. Objective Filed Vitals: 12/19/21195712/20/21 0021 12/20/21 0427 12/20/21 0737 BP: 135/80 [...] 17 14* 13* 16 -- ALT 23 -- Recent Labs Lab 12/16/21 1834 INR 1.0 PTT 26.5 Recent Labs Lab 12/16/21 1420 12/16/21 1425 TROP -- 7 CPK 185 -- Recent Labs Lab 12/16/21 1407 PROCT <0.05 Results for orders placed or performed during the hospital encounter of 08/11/19 URINALYSIS, AUTO, COMPLETE Result Value Ref Range Specimen Type URINE CLEAN CATCH COLOR (U) LIGHT YELLOW TRANSPARENCY CLEAR Specific [place] (U) 1.024 1.001 - 1.030 U PH [...] EXTREMITY VASCULAR LAB Pat.Name: TYSON MCNEAL Pat.ID: [id number] .Date: 12/16/2021 Refer.MD: Yasmin Segura Exam Time: [...] waveforms, Digit PPG, Systolic Pressures w/ADRIANA Race: -British ++++++++++++++++++++++++++++++++++++ SUMMARY: ++++++++++++++++++++++++++++++++++++ Joceline ADRIANA Criteria: >1.30 [...] high amplitude with ADRIANA 0.959 . Digit f low by PPG is not assessed due to [...] ++++++++++++++++++++++++++++++++++++ FINDINGS: ++++++++++++++++++++++++++++++++++++++++++++++++++++++++++++++++++++++++ MEASUREMENTS: ++++++++++++++++++++++++++++++++++++ DOPPLER Left NEONATAL CRITICAL CARE NURSE NEONATAL CRITICAL CARE NURSE PSV 123 cm/s Left Dist Pop A Dist Pop A PSV 94.2 cm/s Left Dist GLUING MACHINE OFFBEARER Dist GLUING MACHINE OFFBEARER PSV 46.2 cm/sLeft Dist DOMINGA Dist DOMINGA PSV 56.5 cm/s Right NEONATAL CRITICAL CARE NURSE NEONATAL CRITICAL CARE NURSE PSV 145 cm/s Right Dist Pop A Dist Pop A PSV 107cm/s Right Dist GLUING MACHINE OFFBEARER Dist GLUING MACHINE OFFBEARER PSV 56.5 cm/s Right Dist DOMINGA Dist [...] within the colon. Ordered By: WANDA MERCER Electronically Signed By: Mercy Irving MD on 28:06 PM Interpreted By: Mercy Irving MD, 12/16/2021 8:04 [...] encounter of 12/16/21 ECG 12 lead Narrative [place] Test Date: 2021-12-16 Pat Name: TYSON MCNEAL Department: Room: 4 Gender: Female Division Chief: : 1970 Requested By: DESIREE MACKENZIE Order Number: [id number] Reading MD: Carroll Varela Measurements Intervals [place] Rate: 89 P: 34 CA: 160 QRS: 15 QRSD: 87 T: 102 [...] today and discussed the plan of carewith eduardo Aguillon, KIAN, who shared in this visit. I have reviewed the KIAN's documentation and agree with the findings except as I have documented. I personally spent 40 minutes, caring for this patient. Maggy Merino, DO * Gigi Sutton RN - 12/19/2021 [...] COLOR (U) LIGHT YELLOW TRANSPARENCY CLEAR Specific [place] (U) 1.024 1.001 - 1.030 U PH [...] EXTREMITY VASCULAR LAB Pat.Name: TYSON MCNEAL Pat.ID: [id number] .Date: 12/16/2021 Refer.MD: Yasmin Segura Exam Time: [...] waveforms, Digit PPG, Systolic Pressures w/ADRIANA Race: -British ++++++++++++++++++++++++++++++++++++ SUMMARY: ++++++++++++++++++++++++++++++++++++ Joceline ADRIANA Criteria: >1.30 [...] FINDINGS: ++++++++++++++++++++++++++++++++++++ ++++++++++++++++++++++++++++++++++++ MEASUREMENTS: ++++++++++++++++++++++++++++++++++++ DOPPLER Left NEONATAL CRITICAL CARE NURSE NEONATAL CRITICAL CARE NURSE PSV 123 cm/s Left Dist Pop A Dist Pop A PSV 94.2 cm/s Left Dist GLUING MACHINE OFFBEARER Dist GLUING MACHINE OFFBEARER PSV 46.2 cm/s Left Dist DOMINGA Dist DOMINGA PSV 56.5 cm/s Right NEONATAL CRITICAL CARE NURSE NEONATAL CRITICAL CARE NURSE PSV 145 cm/s Right Dist Pop A Dist Pop A PSV 107 cm/s Right Dist GLUING MACHINE OFFBEARER Dist GLUING MACHINE OFFBEARER PSV 56.5 cm/s Right Dist DOMINGA Dist [...] encounter of 12/16/21 ECG 12 lead Narrative [place] Test Date: 2021-12-16 Pat Name: TYSON MCNEAL Department: 41 Room: 4 Gender: Female Division Chief: : 1970 Requested By: DESIREE MACKENZIE Order Number: [id number] Reading MD: Carroll Varela Measurements Intervals [place] Rate: 89 P: 34 CA: 160 QRS: 15 QRSD: 87 T: 102 [...] today. Followed with Dr. Hernandez and Dr. Santigao in the past ?? Constipation No BM [...] toe amputations of left foot ordered vancomycin [id number] for diabetic foot infection. Patient received a [...] treatment. Will continue to monitor daily. * Rudi DelgadilloD - 12/18/2021 1:47 PM CDT Vancomycin Pharmacy [...] Will continue to monitor daily. * Eduardo Aguillon APRN - 12/18/2021 8:49 AM CDT Hospitalist Daily [...] COLOR (U) LIGHT YELLOW TRANSPARENCY CLEAR Specific [place] (U) 1.024 1.001 - 1.030 U PH [...] EXTREMITY VASCULAR LAB Pat.Name: TYSON MCNEAL Pat.ID: [id number] .Date: 12/16/2021 Refer.MD: Yasmin Segura Exam Time: 2:52:00 PM Study Type:MARINO VS Arterial Doppler Legs NOHEMY Height: 66in Age: 2 1970,51Y Sex: FEMALE Sonogrphr: Shahla Toscano RDMS, RVT Pat. Stat.:Outpatient Room: ER History / Clinical: Rt foot wounds. L>R severe leg pain. Ltfoot cool to touch with weak pulse. PMH- DM. HTN. HLD. neurop. L2, L3 amp. BMI 39. Prior 06/21/21- Rt1.12, Lt 1.24 Procedures: Doppler waveforms, Digit PPG, Systolic Pressures w/ADRIANA Race: -British ++++++++++++++++++++++++++++++++++++ SUMMARY: ++++++++++++++++++++++++++++++++++++ Joceline ADRIANA Criteria: >1.30 [...] ++++++++++++++++++++++++++++++++++++ FINDINGS: ++++++++++++++++++++++++++++++++++++++++++++++++++++++++++++++++++++++++ MEASUREMENTS: ++++++++++++++++++++++++++++++++++++ DOPPLER Left NEONATAL CRITICAL CARE NURSE NEONATAL CRITICAL CARE NURSE PSV 123 cm/s Left Dist Pop A Dist Pop A PSV 94.2 cm/s Left Dist GLUING MACHINE OFFBEARER Dist GLUING MACHINE OFFBEARER PSV 46.2 cm/sLeft Dist DOMINGA Dist DOMINGA PSV 56.5 cm/s Right NEONATAL CRITICAL CARE NURSE NEONATAL CRITICAL CARE NURSE PSV 145 cm/s Right Dist Pop A Dist Pop A PSV 107cm/s Right Dist GLUING MACHINE OFFBEARER Dist GLUING MACHINE OFFBEARER PSV 56.5 cm/s Right Dist DOMINGA Dist [...] of 12/16/21 ECG [address] [place] [address] Test Date: 2021-12-16 Pat Name: TYSON MCNEAL Department: Room: 4 Gender: Female Division Chief: : 1970 Requested By: DESIREE MACKENZIE Order Number: [id number] Reading MD: Carroll Varela Measurements Intervals [place] Rate: 89 P: 34 CA: 160 QRS: 15 QRSD: 87 T: 102 [...] and interventions as needed. Outcome: Progressing * Pietro Blum PharmD - 12/17/2021 2:18 PM CDT Vancomycin Pharmacy [...] in the ER. Will continue vancomycin therapy [id number] mg every 24 hours. A trough will [...] COLOR (U) LIGHT YELLOW TRANSPARENCY CLEAR Specific [place] (U) 1.024 1.001 - 1.030 U PH [...] EXTREMITY VASCULAR LAB Pat.Name: TYSON MCNEAL Pat.ID: [id number] .Date: 12/16/2021 Refer.MD: Yasmin Segura Exam Time: 2:52:00 PM Study Type:MARINO VS Arterial Doppler Legs NOHEMY Height: 66in Age: 2 1970,51Y Sex: FEMALE Sonogrphr: Shahla Toscano RDTX, RVT Pat. Stat.:Outpatient Room: ER History / Clinical: Rt foot wounds. L>R severe leg pain. Lt foot cool to touch with weak pulse. PMH- DM. HTN. HLD. neurop. L2, L3 amp. BMI 39. Prior 06/21/21- Rt 1.12, Lt 1.24 Procedures: Doppler waveforms, Digit PPG, Systolic Pressures w/ADRIANA Race: -British ++++++++++++++++++++++++++++++++++++ SUMMARY: ++++++++++++++++++++++++++++++++++++ Joceline ADRIANA Criteria: >1.30 [...] ++++++++++++++++++++++++++++++++++++ FINDINGS: ++++++++++++++++++++++++++++++++++++++++++++++++++++++++++++++++++++++++ MEASUREMENTS: ++++++++++++++++++++++++++++++++++++ DOPPLER Left NEONATAL CRITICAL CARE NURSE NEONATAL CRITICAL CARE NURSE PSV 123 cm/s Left Dist Pop A Dist Pop A PSV 94.2 cm/s Left Dist GLUING MACHINE OFFBEARER Dist GLUING MACHINE OFFBEARER PSV 46.2 cm/sLeft Dist DOMINGA Dist DOMINGA PSV 56.5 cm/s Right NEONATAL CRITICAL CARE NURSE NEONATAL CRITICAL CARE NURSE PSV 145 cm/s Right Dist Pop A Dist Pop A PSV 107cm/s Right Dist GLUING MACHINE OFFBEARER Dist GLUING MACHINE OFFBEARER PSV 56.5 cm/s Right Dist DOMINGA Dist [...] of 12/16/21 ECG [address] Test Date: 2021-12-16 Pat Name: TYSON MCNEAL Department: 41 Room: 4 Gender: Female Division Chief: : 1970 Requested By: DESIREE MACKENZIE Order Number: [id number] Reading MD: Carroll Varela Measurements Intervals [place] Rate: 89 P: 34 CA: 160 QRS: 15 QRSD: 87 T: 102 [...] noted at time of interview. Please consult hospice case manager should needs arise closer to tx. * Yasmin Zuniga PharmD, [facility] - 12/16/2021 8:25 PM CDT Vancomycin Pharmacy to Dose Day #1 Ordering Provider: Dr. Urbina Indication: cellulitis AUC goal: 400-600 Individualized trough goal: 7.9-11.9 ACTUAL HT/WT: Ht Readings from Last 1 Encounters: 12/16/21 5' 6 (1.676 m) . Wt Readings from Last 1 Encounters: 12/16/21 82.6 kg (182 lb) Date: WBC: SCR: CRCL: TMAX: LEVEL: 12/16 12.1 1.0 72.9ml/min 98.1 Cultures/Tests: - 12/08 blood cultures x2: in process Kinetics Assessment: [...] will be checked with AM labs 12/18. documented in this encounter H&P Notes * Wanda Ronnie Mercer, DATA REPORTING ANALYST - 12/16/2021 5:48 PM CDT Hospitalist History [...] to ER at the instruction of her carpet inspector finished who is concerned for infection to right [...] increased pain and was evaluated per her carpet inspector finished who observed yellow pus-like drainage. She denies [...] No results for input(s): PH, PCO2, PO2, T0NPUMSRGEAV, BICARBWB, BASEDEFICIT, BASEEXCESS in the [id number] hours. 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 Please see above recommendations. Ezio Bethea, DO Infectious Diseases Current Facility-Administered Medications: ??? acetaminophen (TYLENOL) tablet 650 mg, 650 mg, Oral, Q4H PRN, Eduardo Aguillon, DATA REPORTING ANALYST, 650 mg at 12/22/21 1227 ??? amLODIPine (NORVASC) tablet 10 mg, 10 mg, Oral, nightly, Roxana Chandler APNP, 10 mg at 12/23/211999 ??? atorvastatin (LIPITOR) tablet 20 mg, 20 mg, Oral, Daily, Wanda Mercer, DATA REPORTING ANALYST, 20 mg at 12/24/21 0919 ??? bisacodyl (DULCOLAX) suppository 10 mg, 10 mg, Rectal, Daily PRN, Wanda Mercer, DATA REPORTING ANALYST ??? bisacodyl EC (DULCOLAX) tablet 5 mg, 5 mg, Oral, Daily PRN, Wanda Mercer DATA REPORTING ANALYST ??? ceFEPIme (MAXIPIME) 2 g in sodium chloride 0.9 % 100 mL IVPB, 2 g, Intravenous, Q8H, Roxana Chandler, ELLEN, Stopped at 12/24/21 0449 ??? cyclobenzaprine (FLEXERIL) tablet 10 mg, 10 mg, Oral, TID PRN, Wanda Mercer, DATA REPORTING ANALYST, 10 mg at 12/23/21 0907 ??? dextrose 10 % bolus infusion 125-250 mL, 125-250 mL, Intravenous, PRN, Wanda Mercer, DATA REPORTING ANALYST ??? docusate sodium (COLACE) capsule 100 mg, 100 mg, Oral, BID, David Schofield PA-C, 100 mg at 12/23/211999 ??? glucagon injection 1 mg, 1 mg, Intramuscular, Once PRN, Wanda Mercer DATA REPORTING ANALYST ??? glucose oral gel 32-64 mL, 15-30 g of dextrose, Oral, PRN, Wanda Mercer DATA REPORTING ANALYST ??? heparin (porcine) injection 5,000 Units, 5,000 [...] 1 tablet, Oral, Q6H PRN, Eduardo Aguillon, DATA REPORTING ANALYST, 1 tablet at 12/23/21 0907 ??? hydrOXYzine [...] 0-8 Units, 0-8 Units, Subcutaneous, Nightly atbedtime, Eduardo Aguillon, DATA REPORTING ANALYST, 4 Units at 12/23/212009 ??? lactated ringers infusion, , Intravenous, Continuous, Viet Araujo MD, Stopped at 12/22/21 0732 ??? linaCLOtide (LINZESS) capsule 145 mcg, 145 mcg, Oral, QAM AC, EDWARDO JusticeNP, 145 mcg at 12/23/21 0623 ??? morphine injection 1 mg, 1 mg, Intravenous, Q3H PRN, Wanda Mercer APRN, 1 mg at 12/23/21 0459 ??? naLOXone (NARCAN) injection 0.4 mg, 0.4 mg, Intravenous, PRN, Wanda Mercer APRN ??? ondansetron (ZOFRAN) injection 4 mg, 4 mg, Intravenous, Q8H PRN, Sukhwinder Walker MD, 4 mg at 12/22/21 0724 ??? pantoprazole EC (PROTONIX) tablet 40 mg, 40 mg, Oral, Daily, Wanda Mercer APRN, 40 mg at 12/24/21 0920 ??? polyethylene [...] Procedure Component Value Units Date/Time CULTURE, ANAEROBIC [[id number]] Collected: 12/22/21714 Order Status: Completed Lab Status: Preliminary result Updated: 12/24/211116 Specimen: WOUND from TOE, RIGHT Spec. Description TOE,RIGHT Special Requests: NO SPECIAL REQUEST Gram Stain Result NO WHITE BLOOD CELLS SEEN Gram Stain Result -- RARE EPITHELIAL CELLS SEEN Gram Stain Result NO ORGANISMS SEEN Culture Result: NO GROWTH 2 DAYS CULTURE, WOUND, W/GRAM STAIN [[id number]] Collected: 12/22/21714 Order Status: Canceled Lab Status: No result Specimen: WOUND from TOE, RIGHT CULTURE, ANAEROBIC [[id number]] Collected: 12/22/21713 Order Status: Completed Lab Status: Preliminary result Updated: 12/24/21 1117 Specimen: WOUND from TOE, RIGHT Spec. Description TOE,RIGHT Special Requests: NO SPECIAL REQUEST Gram Stain Result NO WHITE BLOOD CELLS SEEN Gram Stain Result -- RARE EPITHELIAL CELLS SEEN Gram Stain Result -- RARE RED BLOOD CELLS SEEN Gram Stain Result NO ORGANISMS SEEN Culture Result: NO GROWTH 2 DAYS CULTURE, WOUND, W/GRAM STAIN [[id number]] Collected: 12/22/21713 Order Status: Canceled Lab Status: No result Specimen: WOUND from TOE, RIGHT CORONAVIRUS (COVID-19) ANTIGEN (In-house [place]) [[id number]] Collected: 12/22/21545 Order Status: Completed Lab Status: [...] YES PATIENT IN ICU NO RESIDENT OF [facility] NO NOT CULTURE, BACTERIA, BLOOD [[id number]] Collected: 12/16/211814 Order Status: Completed Lab Status: Final result Updated: 12/21/21 1140 Specimen: BLOOD Spec. Description BLOOD Special Requests: NO SPECIAL REQUEST Culture Result: NO GROWTH 5 DAYS CULTURE, BACTERIA, BLOOD [[id number]] Collected: 12/16/211814 Order Status: Completed Lab Status: [...] Nausea. ??? RELION INSULIN SYRINGE 31G X 1 ML Misc USE 1 SYRINGE SUBCUTANEOUSLY [...] 127/76 Pulse: 74 77 77 76 Resp: 9 11 14 Temp: 98.6 ??F (37 ??C) (P) 98.9 [...] OUSMANE POZO MD 12/22/2021 sdf * Hubert Cheek DPM - 12/21/2021 1:05 PM CDTAssociated Order(s): [...] 650 mg, Oral, Q4H PRN, Eduardo Aguillon, DATA REPORTING ANALYST ??? amLODIPine (NORVASC) tablet 10 mg, 10 mg, Oral, nightly, ELLEN Justice, 10 mg at 12/20/218 ??? atorvastatin (LIPITOR) tablet 20 mg, 20 [...] mL, 125-250 mL, Intravenous, PRN, Wanda Mercer APRN ??? docusate sodium (COLACE) capsule 100 mg, 100 mg, Oral, BID, David Schofield PA-C, 100 mg at 12/20/21 0919 ??? glucagon injection 1 mg, 1 mg, Intramuscular, Once PRN, Wanda Mercer APRN ??? glucose oral gel 32-64 mL, 15-30 g of dextrose, Oral, PRN, Wanda Mercer APRN ??? heparin (porcine) injection 5,000 Units, 5,000 Units, Subcutaneous, 2 times per day, 5,000 Units at 12/21/21 0913 AND [COMPLETED] Moderate Risk for VTE, , , Once, Wanda Mercer APRN ??? HYDROcodone-acetaminophen (NORCO) 5-325 MG tablet 1 tablet, 1 tablet, Oral, Q6H PRN, Eduardo Aguillon, DATA REPORTING ANALYST, 1 tablet at 12/20/21 1749 ??? hydrOXYzine (VISTARIL) capsule 25 mg, 25 mg, Oral, Nightly at bedtime, Wanda Mercer APRN, 25 mg at 12/20/212230 ??? insulin glargine (LANTUS) injection 24 Units, 0.25 Units/kg, Subcutaneous, Nightly at bedtime AND insulin lispro (HUMALOG) injection 8 Units, 0.08 Units/kg, Subcutaneous, TID AC, Roxana Merino Geraldine, APNP, 8 Units at 12/21/21 1242 ??? insulin lispro (HUMALOG) injection 0-16 Units, 0-16 Units, Subcutaneous, TID AC, 10 Units at 12/21/21 1242 AND insulin lispro (HUMALOG) injection 0-8 Units, 0-8 Units, Subcutaneous, Nightly at bedtime, Eduardo Aguillon, DATA REPORTING ANALYST, 8 Units at 12/20/212228 ??? linaCLOtide (LINZESS) capsule 145 mcg, 145 mcg, Oral, QAM AC, Roxana Merino Geraldine, APNP, 145 mcg at 12/21/21 0626 ??? [...] 40 mg, 40 mg, Oral, Daily, Wanda Merecr APRN, 40 mg at 12/21/21 0913 ??? [...] IVPB (XELLIA), 1,250 mg, Intravenous, Q24H, Eduardo Aguillon, DATA REPORTING ANALYST, Stopped at 12/20/212017 ??? Pharmacy to dose vancomycin, , , Once AND vancomycin pharmacy to dose placeholder, , Intravenous, See Admin Instructions, Wanda Mercer, DATA REPORTING ANALYST ALL: Review of patient's allergies indicates: Fish [...] 2nd digits. HUBERT CHEEK DPM * Lulu Barrow RN - 12/19/2021 10:34 AM CDTAssociated Order(s): [...] 20 17 Recent Labs Lab 12/16/21 1834 PTT 26.5 INR 1.0 Imaging: USV ART REST W ADRIANA LOW EXT Result Date: 12/17/2021 ARTERIAL DOPPLER - ADRIANA BILATERAL LOWER EXTREMITY VASCULAR LAB Pat.Name: TYSON MCNEAL Pat.ID:[id number] .Date: 12/16/2021 Refer.MD: Yasmin Segura Exam Time: [...] waveforms, Digit PPG, Systolic Pressures w/ADRIANA Race: -British ++++++++++++++++++++++++++++++++++++ SUMMARY: ++++++++++++++++++++++++++++++++++++ Joceline ADRIANA Criteria: >1.30 [...] high amplitude with ADRIANA 0.959 . Digit f low by PPG is not assessed due to [...] N/A, in the range of mild ischemia, asymptomaticPAD. ADRIANA left leg 1.08, with toe index 0.676 , in the range of no ischemia. Waveforms suggestive offemoral-popliteal disease. Recommend follow up as symptoms warrant. ++++++++++++++++++++++++++++++++++++ FINDINGS: ++++++++++++++++++++++++++++++++++++ ++++++++++++++++++++++++++++++++++++ MEASUREMENTS: ++++++++++++++++++++++++++++++++++++ DOPPLER Left NEONATAL CRITICAL CARE NURSE NEONATAL CRITICAL CARE NURSE PSV 123 cm/s Left Dist Pop A Dist Barak PSV 94.2 cm/s Left Dist GLUING MACHINE OFFBEARER Dist GLUING MACHINE OFFBEARER PSV 46.2 cm/s Left Dist DOMINGA Dist DOMINGA PSV 56.5 cm/s Right CFACFA PSV 145 cm/s Right Dist Pop A Dist Pop A PSV 107 cm/s Right Dist GLUING MACHINE OFFBEARER Dist GLUING MACHINE OFFBEARER PSV 56.5 cm/s Right Dist DOMINGA Dist [...] Left Ankle PT AnklePT P 144 mmHg LeftGreat Toe GreatToe P 100 mmHg Left ADRIANA PT ADRIANA PT 0.973 Left ADRIANA DP ADRIANA DP 1.08 Left TBI TBI 0.676 Si gned 12/17/2021 10:33 PM Hubert Hernandez M.D. XR ABD KUB Result [...] BLADDER SURGERY ??? EYE SURGERY ??? HYSTERECTOMY 2019 hysterectomy, cervical surgery ??? RETINAL DETACHMENT [...] if needed Pt agreed to take medication [employer] * Adenike Maynard RN - 12/22/2021 6:45 [...] of a target. Thank you for referral. Shabbir FOWLER RN * Xin Lindsay RN - [...] Report given to Herminio CARRERA. * Sandy Liam RN - 12/16/2021 5:11 PM CDT Patient concerned about going home, Dr. Mackenzie notified. * Desiree Mackenzie MD - 12/16/2021 2:08 PM CDT Chief Complaint Chief Complaint Patient presents with ??? Foot Pain History of Present Illness This patient is a 51yo female with PMH HTN, DM who presents to the ED for evaluation of lower limb pain. The patient presented to her carpet inspector finished today for evaluation of ulcerations on the dorsal aspect of the right first toe and volar aspect of the right second toe. These were debrided. She also mentioned that she has been having increasingly severe pain in the lower legs, much moreso on the left. Her carpet inspector finished noted that the foot was cool to [...] BLADDER SURGERY ??? EYE SURGERY ??? HYSTERECTOMY 2019 hysterectomy, cervical surgery ??? RETINAL DETACHMENT [...] encounter of 12/16/21 ECG 12 lead Narrative Smyrnajensen Christensen [address] [place] [address] Test Date: 2021-12-16 Pat Name: TYSON MCNEAL Department: 41 Room: 4 Gender: Female Division Chief: : 1970 Requested By: DESIREE MACKENZIE Order Number: [id number] Reading MD: Carroll Varela Measurements Intervals [place] Rate: 89 P: 34 CA: 160 QRS: 15 QRSD: 87 T: 102 [...] FOOT LT 2V Final Result by User, [id number] (12/16 2009) PROCEDURE: XR FOOT LT 2V [...] XR ABD KUB Final Result by User, [id number] (12/16 2006) HISTORY: no BM in 5 [...] ADRIANA LOW EXT Preliminary Result by User, [id number] (12/16 1921) ARTERIAL DOPPLER - ADRIANA BILATERAL LOWER EXTREMITY VASCULAR LAB Pat.Name: TYSON MCNEAL Pat.ID: [id number] .Date: 12/16/2021 Refer.MD: Yasmin Segura Exam Time: [...] waveforms, Digit PPG, Systolic Pressures w/ADRIANA Race: -British ++++++++++++++++++++++++++++++++++++ SUMMARY: ++++++++++++++++++++++++++++++++++++ Joceline ADRIANA Criteria: >1.30 [...] FINDINGS: ++++++++++++++++++++++++++++++++++++ ++++++++++++++++++++++++++++++++++++ MEASUREMENTS: ++++++++++++++++++++++++++++++++++++ DOPPLER Left NEONATAL CRITICAL CARE NURSE NEONATAL CRITICAL CARE NURSE PSV 123 cm/s Left Dist Pop A Dist Pop A PSV 94.2 cm/s Left Dist GLUING MACHINE OFFBEARER Dist GLUING MACHINE OFFBEARER PSV 46.2 cm/s Left Dist DOMINGA Dist DOMINGA PSV 56.5 cm/s Right NEONATAL CRITICAL CARE NURSE NEONATAL CRITICAL CARE NURSE PSV 145 cm/s Right Dist Pop A Dist Pop A PSV 107 cm/s Right Dist GLUING MACHINE OFFBEARER Dist GLUING MACHINE OFFBEARER PSV 56.5 cm/s Right Dist DOMINGA Dist [...] MULTI TOE RT Final Result by User, [id number] (12/16 1500) IMAGING STUDIES: XR MULTI TOE [...] right, 1.08 left. The patient and her carpet inspector finished are quite concerned about early osteomyelitis. I could not contact him given that the office was closed. We will start IV antibiotics and plan for admission. Clinical Impression Hypokalemia (Primary) Diabetic foot ulcer (CMS/HCC) Disposition: Admit Desiree Mackenzie MD 12/17/21 0759 [...] st Contact Info) Description 03/14/2024 11:45 AM [employer] Office Visit [facility]-[address] [phone] Marvin Mckeon MD [address] [facility] [address] [place] [address] 03/20/2024 11:30 AM [employer] Office Visit [facility] - [place] [phone] Yasmin Segura II, MD [address] [place] [phone] documented as of this encounter Procedures Procedure Name Priority Date/Time Associated Diagnosis Comments POCT GLUCOSE - CORREA DOCKED DEVICE Routine 12/26/2021 11:41 AM [employer] POCT GLUCOSE - CORREA DOCKED DEVICE Routine 12/26/2021 6:23 AM [employer] COMPREHENSIVE METABOLIC PANEL Routine 12/26/2021 3:49 AM [employer] CBC W/DIFF AUTOMATED Routine 12/26/2021 3:49 AM [employer] LIPASE Routine 12/26/2021 3:49 AM [employer] POCT GLUCOSE - CORREA DOCKED DEVICE Routine 12/25/2021 8:37 PM [employer] CULTURE STREP A Routine 12/25/2021 5:15 PM [employer] POCT GLUCOSE - CORREA DOCKED DEVICE Routine 12/25/2021 3:09 PM [employer] XR ABD KUB Today 12/25/2021 12:55 PM [employer] POCT GLUCOSE - CORREA DOCKED DEVICE Routine 12/25/2021 11:57 AM [employer] POCT GLUCOSE - CORREA DOCKED DEVICE Routine 12/25/2021 7:25 AM [employer] COMPREHENSIVE METABOLIC PANEL Routine 12/25/2021 3:42 AM [employer] CBC W/DIFF AUTOMATED Routine 12/25/2021 3:42 AM [employer] CK (CPK) Routine 12/25/2021 3:42 AM [employer] POCT GLUCOSE - CORREA DOCKED DEVICE Routine [...] * (ABNORMAL) POCT glucose (12/26/2021 11:41 AM [employer]) GLUCOSE POC 143(H) 70 - 99 mg/dL 12/26/2021 11:48 AM [employer] [facility] 12/26/2021 11:4 1 AM [employer] us Roxana HUGHES POCT ORDERABLES - DEVICE Final Result Performing Organization Address [facility]/ZIP Co de Phone Number [facility] [address] [place] [address], [place] [phone] * POCT glucose (12/26/2021 6:23 AM [employer]) GLUCOSE POC 83 70 - 99 mg/dL 12/26/2021 6:34 AM [employer] [facility] 12/26/2021 6:23 AM [employer] us Roxana HUGHES POCT ORDERABLES - DEVICE Final Result [facility] [address] [place] [address], [place] [phone] * LIPASE (12/26/2021 3:49 AM [employer]) [facility] LIPASE 143 73 - 393 UNITS/L 12/26/2021 7:59 AM [employer] [facility] 12/26/2021 3:49 AM [employer] Roxana Merino Geraldine APNP LABORATORY Final Res ult [facility] [address] [place] [address], [place] [phone] * (ABNORMAL) CBC W/DIFF AUTOMATED (12/26/2021 3:49 AM [employer]) [facility] WBC 10.2 4.5 - 11.0 x10'3/uL 12/26/2021 3:56 AM [employer] [facility] RBC 3.31(L) 4.20 - 5.40 x10'6/uL 12/26/2021 3:56 AM [facility] HGB 10.0(L) 12.0 - 16.0 G/DL 12/26/2021 3:56 AM [facility] HCT 29.7(L) 38.0 - 48.0 % 12/26/2021 3:56 AM [facility] MCV 89.7 81.0 - 99.0 FL 12/26/2021 3:56 AM [employer] [facility] MCH 30.2 27.0 - 31.0 PG 12/26/2021 3:56 AM [employer] [facility] MCHC 33.7 32.0 - 36.0 G/DL 12/26/2021 3:56 AM [employer] [facility] RDW 13.1 11.5 - 14.5 % 12/26/2021 3:56 AM [facility] PLT 240 130 - 400 x10'3/uL 12/26/2021 3:56 AM [facility] MPV 10.8 9.3 - 12.2 FL 12/26/2021 3:56 AM [facility] DIFFERENTIAL TYPE AUTOMATED DIFFERENTIAL 12/26/2021 3:56 AM [facility] NEUTROPHILS % 60.8 % 12/26/2021 3:56 AM [facility] LYMPHOCYTES % 30.5 % 12/26/2021 3:56 AM [facility] MONOCYTES % 5.9 % 12/26/2021 3:56 AM [facility] EOSINOPHILS 1.9 % 12/26/2021 3:56 AM [facility] BASOPHILS 0.5 % 12/26/2021 3:56 AM [facility] IMMATURE GRANS % 0.4 % 12/27/19 3:56 AM [facility] ABS. NEUTROPHILS TOTAL 6.21 1.80 - 7.70 x10'3/uL 12/26/2021 3:56 AM [facility] ABS. LYMPHOCYTES 3.11 1.00 - 4.80 x10'3/uL 12/26/2021 3:56 AM [facility] ABS. MONOCYTES 0.60 0.24 - 0.86 x10'3/uL 12/26/2021 3:56 AM [facility] ABS. EOSINOPHILS 0.19 0.04 - 0.36 x10'3/uL 12/26/2021 3:56 AM [facility] ABS. BASOPHILS 0.05 0.01 - 0.08 x10'3/uL 12/26/2021 3:56 AM [facility] ABS. IMMATURE GRANULOCYTES 0.04 0.00 - 0.49 x10'3/uL 12/26/2021 3:56 AM [facility] 12/26/2021 3:49 AM [employer] us Roxana Angelique BradleyGeraldine APNP LABORATORY Final Res ult [facility] [address] [place] [address], [place] [phone] * (ABNORMAL) COMPREHENSIVE METABOLIC PANEL (12/26/2021 3:49 AM [employer]) GLUCOSE 89 70 - 99 MG/DL 12/26/2021 4:18 AM [facility] BUN 26(H) 7 - 18 MG/DL 12/26/2021 4:18 AM [facility] CREATININE S/P/B 1.08(H) 0.55 - 1.02 MG/DL 12/26/2021 4:18 AM [facility] SODIUM S/P/B 138 136 - 145 MMOL/L 12/26/2021 4:18 AM [facility] POTASSIUM S/P/B 4.3 3.5 - 5.1 MMOL/L 12/26/2021 4:18 AM [facility] CHLORIDE S/P/B 108 100 - 108 MMOL/L 12/26/2021 4:18 AM [facility] CO2 24.8 21 - 32 MMOL/L 12/26/2021 4:18 AM [facility] CALCIUM S/P/B 9.1 8.5 - 10.1 MG/DL 12/26/2021 4:18 AM [facility] BILIRUBIN TOTAL S/P/B 0.2 0.2 - 1.2 MG/DL 12/26/2021 4:18 AM [facility] Comment: THIS ASSAY IS NOT RECOMMENDED FOR PATIENTS UNDERGOING TREATMENT WITH ELTROMBOPAG DUE TO THE POTENTIAL FOR FALSELY ELEVATED RESULTS. TOTAL PROTEIN S/P/B 7.9 6.4 - 8.2 G/DL 12/26/2021 4:18 AM [facility] ALBUMIN S/P/B 2.9(L) 3.4 - 5.0 G/DL 12/26/2021 4:18 AM [facility] AST 44(H) 15 - 37 U/L 12/26/2021 4:18 AM [facility] ALT 82(H) 14 - 55 U/L 12/26/2021 4:18 AM [facility] ALKALINE PHOSPHATASE S/P/B 169(H) 50 - 136 U/L 12/26/2021 4:18 AM [facility] ANION GAP 5.2 5 - 15 MMOL/L 12/26/2021 4:18 AM [facility] BUN CREATININE RATIO 24.1 6 - 26 12/26/2021 4:18 AM [facility] A/G RATIO 0.6(L) 1.0 - 2.0 RATIO 12/26/2021 4:18 AM [facility] GFR ESTIMATE 63(L) >90 ML/MIN/1.7 3 M2 12/26/2021 4:18 AM [facility] Comment: NOTE: eGFR is not calculated for patients <18 years of age. This is an estimated GFR calculation using the new CKD EPI creatinine equation without race and so does not require a correction factor for race. This estimated GFR should not be used for calculating drug doses. 12/26/2021 3:49 AM [employer] Roxana HUGHES LABORATORY Final Res ult Performing Organization Address [facility]/ZIP Co de Phone Number [facility] [address] [place] [address], [place] [phone] * (ABNORMAL) POCT glucose (12/25/2021 8:37 PM [employer]) GLUCOSE POC 204(H) 70 - 99 mg/dL 12/25/2021 8:40 PM [employer] [facility] 12/25/2021 8:37 PM [employer] us Roxana Merino Geraldine HUGHES POCT ORDERABLES - DEVICE Final Result Performing Organization Address [facility] Co de Phone Number [facility] [address] [place] [phone], * CULTURE STREP A (12/25/2021 5:15 PM [employer]) SPEC DESCRIPTION THROAT 12/25/2021 3:17 PM [employer] [facility] SPECIAL REQUESTS NO SPECIAL REQUEST 12/25/2021 3:17 PM [employer] [facility] CULTURE RESULT NO STREPTOCOCCUS PYOGENES (GROUP A) ISOLATED 12/28/2021 7:00 AM [employer] [facility] THROAT SWAB / Unknown 12/25/2021 5:15 PM [employer] 12/25/2021 5:29 PM [employer] us Schmidt Angelique HUGHES MICROBIOLOGY - GENERAL OR DERABLES Final Result Performing Organization Address [facility]/ZIP Co de Phone Number [facility] [address] [place] [address], [place] [phone] * (ABNORMAL) POCT glucose (12/25/2021 3:09 PM [employer]) GLUCOSE POC 287(H) 70 - 99 mg/dL 12/25/2021 3:31 PM [employer] [facility] 12/25/2021 3:09 PM [employer] Roxana Chandler APNP POCT ORDERABLES - DEVICE Final Result [facility] [address] [place] [address], * XR ABD KUB (12/25/2021 12:55 PM [employer]) Anatomical Region Laterality Modality Abdomen Radiographic Shelli ging 12/25/2021 1:17 PM [employer] Impressions 12/25/2021 1:26 PM [employer] IMPRESSION: Nonobstructive bowel gas pattern. Referred By: ?? Interpreted By: Angelito Tidwell MD, 12/25/2021 1:17 PM Narrative 12/25/2021 1:26 PM [employer] IMAGING STUDIES: ??XR ABD KUB ? DATE: [...] Angelito Tidwell MD, 12/25/2021 1:17 PM Roxana Chandler APNP GENERAL IMAGING Final Res ult * (ABNORMAL) POCT glucose (12/25/2021 11:57 AM [employer]) GLUCOSE POC 176(H) 70 - 99 mg/dL 12/25/2021 12:01 PM [employer] [facility] 12/25/2021 11:5 7 AM [employer] Roxana Bradleyjohn ELLEN POCT ORDERABLES - DEVICE Final Result Performing Organization Address City[facility] Co de Phone Number [facility] [address] [place] [address], [place] [phone] * (ABNORMAL) POCT glucose (12/25/2021 7:25 AM [employer]) GLUCOSE POC 139(H) 70 - 99 mg/dL 12/25/2021 6:27 AM [employer] [facility] 12/25/2021 7:25 AM [employer] Roxana Bradleyxavier HUGHES POCT ORDERABLES - DEVICE Final Result Performing Organization Address [facility] de Phone Number [facility] [address] [place] [address], [place] [phone] * (ABNORMAL) CBC W/DIFF AUTOMATED (12/25/2021 3:42 AM [employer]) WBC 9.3 4.5 - 11.0 x10'3/uL 12/25/2021 3:53 AM [employer] [facility] RBC 3.40(L) 4.20 - 5.40 x10'6/uL 12/25/2021 3:53 AM [employer] [facility] HGB 10.2(L) 12.0 - 16.0 G/DL 12/25/2021 3:53 AM [facility] HCT 30.4(L) 38.0 - 48.0 % 12/25/2021 3:53 AM [employer] [facility] MCV 89.4 81.0 - 99.0 FL 12/25/2021 3:53 AM [facility] MCH 30.0 27.0 - 31.0 PG 12/25/2021 3:53 AM [facility] MCHC 33.6 32.0 - 36.0 G/DL 12/25/2021 3:53 AM [facility] RDW 12.8 11.5 - 14.5 % 12/25/2021 3:53 AM [facility] PLT 244 130 - 400 x10'3/uL 12/25/2021 3:53 AM [facility] MPV 11.1 9.3 - 12.2 FL 12/25/2021 3:53 AM [facility] DIFFERENTIAL TYPE AUTOMATED DIFFERENTIAL 12/25/2021 3:53 AM [facility] NEUTROPHILS % 55.9 % 12/25/2021 3:53 AM [facility] LYMPHOCYTES % 35.8 % 12/25/2021 3:53 AM [facility] MONOCYTES % 5.7 % 12/25/2021 3:53 AM [facility] EOSINOPHILS 1.9 % 12/25/2021 3:53 AM [facility] BASOPHILS 0.4 % 12/25/2021 3:53 AM [facility] IMMATURE GRANS % 0.3 % 12/26/19 3:53 AM [facility] ABS. NEUTROPHILS TOTAL 5.19 1.80 - 7.70 x10'3/uL 12/25/2021 3:53 AM [facility] ABS. LYMPHOCYTES 3.33 1.00 - 4.80 x10'3/uL 12/25/2021 3:53 AM [facility] ABS. MONOCYTES 0.53 0.24 - 0.86 x10'3/uL 12/25/2021 3:53 AM [employer] [facility] ABS. EOSINOPHILS 0.18 0.04 - 0.36 x10'3/uL 12/25/2021 3:53 AM [employer] [facility] ABS. BASOPHILS 0.04 0.01 - 0.08 x10'3/uL 12/25/2021 3:53 AM [employer] [facility] ABS. IMMATURE GRANULOCYTES 0.03 0.00 - 0.49 x10'3/uL 12/25/2021 3:53 AM [employer] [facility] 12/25/2021 3:42 AM [employer] Roxana Chandler APNP LABORATORY Final Res ult [facility] [address] [place] [address], * (ABNORMAL) COMPREHENSIVE METABOLIC PANEL (12/25/2021 3:42 AM [employer]) GLUCOSE 142(H) 70 - 99 MG/DL 12/25/2021 4:24 AM [employer] [facility] BUN 27(H) 7 - 18 MG/DL 12/25/2021 4:24 AM [facility] CREATININE S/P/B 1.02 0.55 - 1.02 MG/DL 12/25/2021 4:24 AM [employer] [facility] SODIUM S/P/B 138 136 - 145 MMOL/L 12/25/2021 4:24 AM [facility] POTASSIUM S/P/B 4.2 3.5 - 5.1 MMOL/L 12/25/2021 4:24 AM [facility] CHLORIDE S/P/B 107 100 - 108 MMOL/L 12/25/2021 4:24 AM [facility] CO2 25.3 21 - 32 MMOL/L 12/25/2021 4:24 AM [facility] CALCIUM S/P/B 9.2 8.5 - 10.1 MG/DL 12/25/2021 4:24 AM [facility] BILIRUBIN TOTAL S/P/B 0.2 0.2 - 1.2 MG/DL 12/25/2021 4:24 AM [facility] Comment: THIS ASSAY IS NOT RECOMMENDED FOR PATIENTS UNDERGOING TREATMENT WITH ELTROMBOPAG DUE TO THE POTENTIAL FOR FALSELY ELEVATED RESULTS. TOTAL PROTEIN S/P/B 7.8 6.4 - 8.2 G/DL 12/25/2021 4:24 AM [facility] ALBUMIN S/P/B 2.8(L) 3.4 - 5.0 G/DL 12/25/2021 4:24 AM [facility] AST 38(H) 15 - 37 U/L 12/25/2021 4:24 AM [facility] ALT 80(H) 14 - 55 U/L 12/25/2021 4:24 AM [facility] ALKALINE PHOSPHATASE S/P/B 184(H) 50 - 136 U/L 12/25/2021 4:24 AM [facility] ANION GAP 5.7 5 - 15 MMOL/L 12/25/2021 4:24 AM [facility] BUN CREATININE RATIO 26.5(H) 6 - 26 12/25/2021 4:24 AM [facility] A/G RATIO 0.6(L) 1.0 - 2.0 RATIO 12/25/2021 4:24 AM [facility] GFR ESTIMATE 67(L) >90 ML/MIN/1.7 3 M2 12/25/2021 4:24 AM [facility] Comment: NOTE: eGFR is not calculated for patients <18 years of age. This is an estimated GFR calculation using the new CKD EPI creatinine equation without race and so does not require a correction factor for race. This estimated GFR should not be used for calculating drug doses. 12/25/2021 3:42 AM [employer] Roxana HUGHES LABORATORY Final Res ult Performing Organization Address [facility]/ZIP Co de Phone Number [facility] [address] [place] [address], [place] [phone] * CK (CPK) - Weekly starting tomorrow (12/25/2021 3:42 AM [employer]) CPK 71 21 - 215 U/L 12/25/2021 4:24 AM [employer] [facility] 12/25/2021 3:42 AM [employer] Ezio Bethea DO LABORATORY Final Result Performing Organization Address [facility] Co de Phone Number [facility] [address] [place] [address], [place] [phone] * (ABNORMAL) POCT glucose (12/24/2021 10:11 PM CDT) GLUCOSE POC 196(H) 70 - 99 mg/dL 12/25/2021 6:27 AM [employer] [facility] 12/24/2021 10:1 1 PM CDT Roxana HUGHES POCT ORDERABLES - DEVICE Final Result Performing Organization Address [facility] Co de Phone Number [facility] [address] [place] [address], [place] [phone] * (ABNORMAL) POCT glucose (12/24/2021 5:35 PM CDT) GLUCOSE POC 233(H) 70 - 99 mg/dL 12/24/2021 5:48 PM CDT [facility] 12/24/2021 5:35 PM CDT Roxana Chandler ELLEN POCT ORDERABLES - DEVICE Final Result [facility] [address] [place] [address], [place] [phone] * (ABNORMAL) POCT glucose (12/24/2021 11:46 AM CDT) GLUCOSE POC 239(H) 70 - 99 mg/dL 12/24/2021 11:59 AM CDT [facility] 12/24/2021 11:4 6 AM CDT Roxana BROOKESUSAN POCT ORDERABLES - DEVICE Final Result Performing Organization Address [facility]/ZIP Co de Phone Number [facility] [address] [place] [address], [place] [phone] * (ABNORMAL) POCT glucose (12/24/2021 6:29 AM CDT) GLUCOSE POC 189(H) 70 - 99 mg/dL 12/24/2021 6:34 AM CDT [facility] 12/24/2021 6:29 AM CDT us Roxana Chandler APSUSAN POCT ORDERABLES - DEVICE Final Result [facility] [address] [place] [address], [place] [phone] * (ABNORMAL) CBC W/DIFF AUTOMATED (12/24/2021 3:45 AM CDT) [facility] WBC 7.4 4.5 - 11.0 x10'3/uL 12/24/2021 4:07 AM CDT [facility] RBC 3.43(L) 4.20 - 5.40 x10'6/uL 12/24/2021 4:07 AM CDT [facility] HGB 10.3(L) 12.0 - 16.0 G/DL 12/24/2021 4:07 AM CDT [facility] HCT 30.9(L) 38.0 - 48.0 % 12/24/2021 4:07 AM CDT [facility] MCV 90.1 81.0 - 99.0 FL 12/24/2021 4:07 AM CDT [facility] MCH 30.0 27.0 - 31.0 PG 12/24/2021 4:07 AM CDT [facility] MCHC 33.3 32.0 - 36.0 G/DL 12/24/2021 4:07 AM CDT [facility] RDW 12.8 11.5 - 14.5 % 12/24/2021 4:07 AM CDT [facility] PLT 247 130 - 400 x10'3/uL 12/24/2021 4:07 AM CDT [facility] MPV 11.1 9.3 - 12.2 FL 12/24/2021 4:07 AM CDT [facility] DIFFERENTIAL TYPE AUTOMATED DIFFERENTIAL 12/24/2021 4:07 AM CDT [facility] NEUTROPHILS % 58.0 % 12/24/2021 4:07 AM CDT [facility] LYMPHOCYTES % 33.6 % 12/24/2021 4:07 AM CDT [facility] MONOCYTES % 5.6 % 12/24/2021 4:07 AM CDT [facility] EOSINOPHILS 2.0 % 12/24/2021 4:07 AM CDT [facility] BASOPHILS 0.5 % 12/24/2021 4:07 AM CDT [facility] IMMATURE GRANS % 0.3 % 12/25/19 4:07 AM CDT [facility] ABS. NEUTROPHILS TOTAL 4.26 1.80 - 7.70 x10'3/uL 12/24/2021 4:07 AM CDT [facility] ABS. LYMPHOCYTES 2.47 1.00 - 4.80 x10'3/uL 12/24/2021 4:07 AM CDT [facility] ABS. MONOCYTES 0.41 0.24 - 0.86 x10'3/uL 12/24/2021 4:07 AM CDT [facility] ABS. EOSINOPHILS 0.15 0.04 - 0.36 x10'3/uL 12/24/2021 4:07 AM CDT [facility] ABS. BASOPHILS 0.04 0.01 - 0.08 x10'3/uL 12/24/2021 4:07 AM CDT [facility] ABS. IMMATURE GRANULOCYTES 0.02 0.00 - 0.49 x10'3/uL 12/24/2021 4:07 AM CDT [facility] 12/24/2021 3:45 AM CDT us Roxana Chandler APNP LABORATORY Final Res ult [facility] [address] [place] [address], * (ABNORMAL) BASIC METABOLIC PANEL (12/24/2021 3:45 AM CDT) [facility] GLUCOSE 175(H) 70 - 99 MG/DL 12/24/2021 4:26 AM CDT [facility] BUN 23(H) 7 - 18 MG/DL 12/24/2021 4:26 AM CDT [facility] CREATININE S/P/B 1.05(H) 0.55 - 1.02 MG/DL 12/24/2021 4:26 AM T [facility] SODIUM S/P/B 137 136 - 145 MMOL/L 12/24/2021 4:26 AM T [facility] POTASSIUM S/P/B 4.7 3.5 - 5.1 MMOL/L 12/24/2021 4:26 AM T [facility] CHLORIDE S/P/B 107 100 - 108 MMOL/L 12/24/2021 4:26 AM T [facility] CO2 25.2 21 - 32 MMOL/L 12/24/2021 4:26 AM T [facility] CALCIUM S/P/B 8.7 8.5 - 10.1 MG/DL 12/24/2021 4:26 AM T [facility] ANION GAP 4.8(L) 5 - 15 MMOL/L 12/24/2021 4:26 AM T [facility] BUN CREATININE RATIO 21.9 6 - 26 12/24/2021 4:26 AM T [facility] GFR ESTIMATE 65(L) >90 ML/MIN/1.7 3 M2 12/24/2021 4:26 AM T [facility] Comment: NOTE: eGFR is not calculated for patients <18 years of age. This is an estimated GFR calculation using the new CKD EPI creatinine equation without race and so does not require a correction factor for race. This estimated GFR should not be used for calculating drug doses. 12/24/2021 3:45 AM CDT us Roxana Chandler [facility] Final Res ult Performing Organization Address [facility] Co de Phone Number [facility] [address] [place] [id number], [place] [phone] * (ABNORMAL) POCT glucose (12/23/2021 7:54 PM CDT) GLUCOSE POC 259(H) 70 - 99 mg/dL 12/23/2021 8:05 PM CDT [facility] 12/23/2021 7:54 PM CDT us Roxana Chandler ELLEN POCT ORDERABLES - DEVICE Final Result Performing Organization Address [facility] Co de Phone Number [facility] [address] [place] [address], [place] [phone] * (ABNORMAL) POCT glucose (12/23/2021 5:17 PM CDT) GLUCOSE POC 218(H) 70 - 99 mg/dL 12/23/2021 6:01 PM CDT [facility] 12/23/2021 5:17 PM CDT us Roxana Chandler ELLEN POCT ORDERABLES - DEVICE Final Result Performing Organization Address [facility] Co de Phone Number [facility] [address] [place] [address], [place] [phone] * XR CHEST PORTABLE (12/23/2021 12:03 PM [...] Angelito Tidwell MD, 12/23/2021 12:00 PM Roxana Angelique [facility] Final Res ult * (ABNORMAL) POCT glucose (12/23/2021 12:03 PM CDT) GLUCOSE POC 185(H) 70 - 99 mg/dL 12/23/2021 12:19 PM CDT [facility] 12/23/2021 12:0 3 PM CDT Roxana Merino Geraldine ELLEN POCT ORDERABLES - DEVICE Final Result Performing Organization Address [facility] Co de Phone Number [facility] [address] [place] [address], [place] [phone] * (ABNORMAL) POCT glucose (12/23/2021 6:25 AM CDT) GLUCOSE POC 234(H) 70 - 99 mg/dL 12/23/2021 6:27 AM CDT [facility] 12/23/2021 6:25 AM CDT Roxana Bradleyxavier HUGHES POCT ORDERABLES - DEVICE Final Result Performing Organization Address [facility]/ZIP Co de Phone Number [facility] [address] [place] [address], [place] [phone] * (ABNORMAL) CBC W/DIFF AUTOMATED (12/23/2021 3:55 AM CDT) WBC 8.2 4.5 - 11.0 x10'3/uL 12/23/2021 4:16 AM CDT [facility] RBC 3.45(L) 4.20 - 5.40 x10'6/uL 12/23/2021 4:16 AM CDT [facility] HGB 10.3(L) 12.0 - 16.0 G/DL 12/23/2021 4:16 AM CDT [facility] HCT 31.4(L) 38.0 - 48.0 % 12/23/2021 4:16 AM CDT [facility] MCV 91.0 81.0 - 99.0 FL 12/23/2021 4:16 AM CDT [facility] MCH 29.9 27.0 - 31.0 PG 12/23/2021 4:16 AM CDT [facility] MCHC 32.8 32.0 - 36.0 G/DL 12/23/2021 4:16 AM CDT [facility] RDW 12.8 11.5 - 14.5 % 12/23/2021 4:16 AM CDT [facility] PLT 259 130 - 400 x10'3/uL 12/23/2021 4:16 AM CDT [facility] MPV 11.1 9.3 - 12.2 FL 12/23/2021 4:16 AM CDT [facility] DIFFERENTIAL TYPE AUTOMATED DIFFERENTIAL 12/23/2021 4:16 AM CDT [facility] NEUTROPHILS % 70.5 % 12/23/2021 4:16 AM CDT [facility] LYMPHOCYTES % 22.0 % 12/23/2021 4:16 AM CDT [facility] MONOCYTES % 5.5 % 12/23/2021 4:16 AM CDT [facility] EOSINOPHILS 1.0 % 12/23/2021 4:16 AM CDT [facility] BASOPHILS 0.6 % 12/23/2021 4:16 AM CDT [facility] IMMATURE GRANS % 0.4 % 12/24/19 4:16 AM CDT [facility] ABS. NEUTROPHILS TOTAL 5.80 1.80 - 7.70 x10'3/uL 12/23/2021 4:16 AM CDT [facility] ABS. LYMPHOCYTES 1.81 1.00 - 4.80 x10'3/uL 12/23/2021 4:16 AM CDT [facility] ABS. MONOCYTES 0.45 0.24 - 0.86 x10'3/uL 12/23/2021 4:16 AM CDT [facility] ABS. EOSINOPHILS 0.08 0.04 - 0.36 x10'3/uL 12/23/2021 4:16 AM CDT [facility] ABS. BASOPHILS 0.05 0.01 - 0.08 x10'3/uL 12/23/2021 4:16 AM CDT [facility] ABS. IMMATURE GRANULOCYTES 0.03 0.00 - 0.49 x10'3/uL 12/23/2021 4:16 AM CDT [facility] 12/23/2021 3:55 AM CDT Roxana Chandler APNP LABORATORY Final Res ult [facility] [address] [place] [address], [place] [phone] * (ABNORMAL) BASIC METABOLIC PANEL (12/23/2021 3:55 AM CDT) GLUCOSE 251(H) 70 - 99 MG/DL 12/23/2021 4:43 AM CDT [facility] BUN 28(H) 7 - 18 MG/DL 12/23/2021 4:43 AM CDT [facility] CREATININE S/P/B 1.11(H) 0.55 - 1.02 MG/DL 12/23/2021 4:43 AM CDT [facility] SODIUM S/P/B 135(L) 136 - 145 MMOL/L 12/23/2021 4:43 AM CDT [facility] POTASSIUM S/P/B 5.6(H) 3.5 - 5.1 MMOL/L 12/23/2021 4:43 AM CDT [facility] CHLORIDE S/P/B 106 100 - 108 MMOL/L 12/23/2021 4:43 AM CDT [facility] CO2 23.6 21 - 32 MMOL/L 12/23/2021 4:43 AM CDT [facility] CALCIUM S/P/B 8.8 8.5 - 10.1 MG/DL 12/23/2021 4:43 AM CDT [facility] ANION GAP 5.4 5 - 15 MMOL/L 12/23/2021 4:43 AM CDT [facility] BUN CREATININE RATIO 25.2 6 - 26 12/23/2021 4:43 AM T [facility] GFR ESTIMATE 61(L) >90 ML/MIN/1.7 3 M2 12/23/2021 4:43 AM T [facility] Comment: NOTE: eGFR is not calculated for patients <18 years of age. This is an estimated GFR calculation using the new CKD EPI creatinine equation without race and so does not require a correction factor for race. This estimated GFR should not be used for calculating drug doses. 12/23/2021 3:55 AM CDT us Roxana HUGHES LABORATORY Final Res ult [facility] [address] [place] [address], [place] [phone] * (ABNORMAL) POCT glucose (12/22/2021 9:01 PM CDT) GLUCOSE POC 246(H) 70 - 99 mg/dL 12/22/2021 9:04 PM CDT [facility] 12/22/2021 9:01 PM CDT us Roxana Chandler APNP POCT ORDERABLES - DEVICE Final Result [facility] [address] [place] [address], * (ABNORMAL) POCT glucose (12/22/2021 5:07 PM CDT) GLUCOSE POC 256(H) 70 - 99 mg/dL 12/22/2021 5:27 PM CDT [facility] 12/22/2021 5:07 PM CDT us Roxana Chandler ELLEN POCT ORDERABLES - DEVICE Final Result Performing Organization Address [facility]/ZIP Co de Phone Number [facility] [address] [place] [address], * (ABNORMAL) POCT glucose (12/22/2021 11:11 AM CDT) GLUCOSE POC 242(H) 70 - 99 mg/dL 12/22/2021 11:19 AM CDT [facility] 12/22/2021 11:1 1 AM CDT us Roxana Chandler APSUSAN POCT ORDERABLES - DEVICE Final Result [facility] [address] [place] [address], [place] [phone] * (ABNORMAL) POCT glucose (12/22/2021 7:37 AM CDT) GLUCOSE POC 188(H) 70 - 99 mg/dL 12/22/2021 7:44 AM CDT [facility] 12/22/2021 7:37 AM CDT Roxana Angelique Chandler APNP POCT ORDERABLES - DEVICE Final Result [facility] [address] [place] [address], [place] [phone] * CULTURE, ANAEROBIC (12/22/2021 7:15 AM CDT) SPEC DESCRIPTION TOE,RIGHT 12/22/2021 7:46 AM CDT [facility] SPECIAL REQUESTS NO SPECIAL REQUEST 12/22/2021 7:46 AM CDT [facility] GRAM STAIN RESULT NO WHITE BLOOD CELLS SEEN 12/22/2021 12:06 PM CDT [facility] GRAM STAIN RESULT RARE EPITHELIAL CELLS SEEN 12/22/2021 12:06 PM CDT [facility] GRAM STAIN RESULT NO ORGANISMS SEEN 12/22/2021 12:06 PM CDT [facility] CULTURE RESULT NO GROWTH 5 DAYS 12/27/2021 11:46 AM [employer] [facility] CULTURE RESULT NOTE: ANAEROBIC CULTURES ARE ROUTINELY SCREENED FOR BOTH AEROBIC AND ANAEROBIC ORGANISMS. 12/27/2021 11:46 AM [employer] [facility] WOUND STRUCTURE OF TOE OF RIGHT FOOT / Unknown 12/22/2021 7:44 AM CDT Hubert Cheek DPM MICROBIOLOGY - GENERAL OR DERABLES Final Result [facility] [address] [place] [address], [place] [phone] * CULTURE, ANAEROBIC (12/22/2021 7:14 AM CDT) SPEC DESCRIPTION TOE,RIGHT 12/22/2021 7:46 AM CDT [facility] SPECIAL REQUESTS NO SPECIAL REQUEST 12/22/2021 7:46 AM CDT [facility] GRAM STAIN RESULT NO WHITE BLOOD CELLS SEEN 12/22/2021 12:05 PM CDT [facility] GRAM STAIN RESULT RARE EPITHELIAL CELLS SEEN 12/22/2021 12:05 PM CDT [facility] GRAM STAIN RESULT RARE RED BLOOD CELLS SEEN 12/22/2021 12:05 PM CDT [facility] GRAM STAIN RESULT NO ORGANISMS SEEN 12/22/2021 12:05 PM CDT [facility] CULTURE RESULT NO GROWTH 5 DAYS 12/27/2021 11:46 AM [employer] [facility] CULTURE RESULT NOTE: ANAEROBIC CULTURES ARE ROUTINELY SCREENED FOR BOTH AEROBIC AND ANAEROBIC ORGANISMS. 12/27/2021 11:46 AM [facility] WOUND STRUCTURE OF TOE OF RIGHT FOOT / Unknown 12/22/2021 7:44 AM CDT Hubert Cheek DPRonnie MICROBIOLOGY - GENERAL OR DERABLES Final Result [facility] [address] [place] [address], [place] [phone] * (ABNORMAL) BASIC METABOLIC PANEL (12/22/2021 5:52 AM CDT) [facility] GLUCOSE 170(H) 70 - 99 MG/DL 12/22/2021 6:28 AM [facility] BUN 33(H) 7 - 18 MG/DL 12/22/2021 6:28 AM [facility] CREATININE S/P/B 1.29(H) 0.55 - 1.02 MG/DL 12/22/2021 6:28 AM T [facility] SODIUM S/P/B 136 136 - 145 MMOL/L 12/22/2021 6:28 AM [facility] POTASSIUM S/P/B 4.6 3.5 - 5.1 MMOL/L 12/22/2021 6:28 AM [facility] CHLORIDE S/P/B 105 100 - 108 MMOL/L 12/22/2021 6:28 AM [facility] CO2 25.9 21 - 32 MMOL/L 12/22/2021 6:28 AM [facility] CALCIUM S/P/B 9.5 8.5 - 10.1 MG/DL 12/22/2021 6:28 AM [facility] ANION GAP 5.1 5 - 15 MMOL/L 12/22/2021 6:28 AM [facility] BUN CREATININE RATIO 25.6 6 - 26 12/22/2021 6:28 AM [facility] GFR ESTIMATE 51(L) >90 ML/MIN/1.7 3 M2 12/22/2021 6:28 AM [facility] Comment: NOTE: eGFR is not calculated for patients <18 years of age. This is an estimated GFR calculation using the new CKD EPI creatinine equation without race and so does not require a correction factor for race. This estimated GFR should not be used for calculating drug doses. 12/22/2021 5:52 AM CDT Eduardo Mitchell Anastasiyaritu DATA REPORTING ANALYST LABORATORY Final Result [facility] [address] [place] [address], [place] [phone] * (ABNORMAL) CBC W/DIFF AUTOMATED (12/22/2021 5:52 AM CDT) [facility] WBC 8.6 4.5 - 11.0 x10'3/uL 12/22/2021 6:07 AM CDT [facility] RBC 4.01(L) 4.20 - 5.40 x10'6/uL 12/22/2021 6:07 AM CDT [facility] HGB 12.1 12.0 - 16.0 G/DL 12/22/2021 6:07 AM CDT [facility] HCT 36.2(L) 38.0 - 48.0 % 12/22/2021 6:07 AM CDT [facility] MCV 90.3 81.0 - 99.0 FL 12/22/2021 6:07 AM CDT [facility] MCH 30.2 27.0 - 31.0 PG 12/22/2021 6:07 AM CDT [facility] MCHC 33.4 32.0 - 36.0 G/DL 12/22/2021 6:07 AM CDT [facility] RDW 12.7 11.5 - 14.5 % 12/22/2021 6:07 AM CDT [facility] PLT 321 130 - 400 x10'3/uL 12/22/2021 6:07 AM CDT [facility] MPV 10.9 9.3 - 12.2 FL 12/22/2021 6:07 AM CDT [facility] DIFFERENTIAL TYPE AUTOMATED DIFFERENTIAL 12/22/2021 6:07 AM CDT [facility] NEUTROPHILS % 46.7 % 12/22/2021 6:07 AM CDT [facility] LYMPHOCYTES % 46.8 % 12/22/2021 6:07 AM CDT [facility] MONOCYTES % 4.4 % 12/22/2021 6:07 AM CDT [facility] EOSINOPHILS 1.2 % 12/22/2021 6:07 AM CDT [facility] BASOPHILS 0.7 % 12/22/2021 6:07 AM CDT [facility] IMMATURE GRANS % 0.2 % 12/23/19 6:07 AM CDT [facility] ABS. NEUTROPHILS TOTAL 4.00 1.80 - 7.70 x10'3/uL 12/22/2021 6:07 AM CDT [facility] ABS. LYMPHOCYTES 4.01 1.00 - 4.80 x10'3/uL 12/22/2021 6:07 AM CDT [facility] ABS. MONOCYTES 0.38 0.24 - 0.86 x10'3/uL 12/22/2021 6:07 AM CDT [facility] ABS. EOSINOPHILS 0.10 0.04 - 0.36 x10'3/uL 12/22/2021 6:07 AM CDT [facility] ABS. BASOPHILS 0.06 0.01 - 0.08 x10'3/uL 12/22/2021 6:07 AM CDT [facility] ABS. IMMATURE GRANULOCYTES 0.02 0.00 - 0.49 x10'3/uL 12/22/2021 6:07 AM T [facility] 12/22/2021 5:52 AM CDT us Eduardo Aguillon DATA REPORTING ANALYST LABORATORY Final Result [facility] [address] [place] [address], * CORONAVIRUS (COVID-19) ANTIGEN (In-house [facility]) (12/22/2021 5:46 AM CDT) CORONAVIRUS ANTIGEN IA NEGATIVE NEGATIVE 12/22/2021 6:31 AM CDT [facility] Comment: NEGATIVE RESULTS SHOULD BE TREATED [...] SPECIMEN TYPE NASAL 12/22/2021 5:47 AM CDT [facility] FIRST TEST NO 12/22/2021 5:47 AM CDT [facility] EMPLOYED IN HEALTHCARE NO 12/22/2021 5:47 AM CDT [facility] SYMPTOMATIC DEFINED BY CDC NO 12/22/2021 5:47 AM CDT [facility] HOSPITALIZATION STATUS YES 12/22/2021 5:47 AM CDT [facility] PATIENT IN ICU NO 12/22/2021 5:47 AM CDT [facility] RESIDENT OF [facility] C[facility] NO 12/22/2021 5:47 AM CDT [facility] NOT 12/22/2021 5:47 AM CDT [facility] NASAL NASAL STRUCTURE / Unknown 12/22/2021 5:46 AM CDT Roxana Merino Geraldine HUGHES MICROBIOLOGY - GENERAL OR DERABLES Final Result Performing Organization Address [facility] Co de Phone Number [facility] [address] [place] [address], * (ABNORMAL) POCT glucose (12/22/2021 5:01 AM CDT) GLUCOSE POC 153(H) 70 - 99 mg/dL 12/22/2021 5:45 AM CDT [facility] 12/22/2021 5:01 AM CDT Roxana Merino Geraldine HUGHES POCT ORDERABLES - DEVICE Final Result Performing Organization Address [facility] de Phone Number [facility] [address] [place] [address], * Pathology (12/22/2021 12:00 AM CDT) COPATH REPORT ?[facility] ? [address] ? [place], [place] ??[address] ? [id number] ? Department of Pathology ? Pathology Report ? SURGICAL FINAL REPORT Patient Name: TYSON MCNEAL ? : 1970 (Age: 51) ? Location: [id number] Gender: F ?Collected Date: 12/22/2021 Med Rec #: [id number] ?Date Received: 12/22/2021 Date Reported: 12/23/2021 Provider: DESIREE MACKENZIE MD ?WANDA URBINA MD ?DAVID Merino ?EDUARDO AGUILLON DATA REPORTING ANALYST ?[facility] RECEPTIONIST ?HUBERT CHEEK DPM Specimen(s) A: Bone, biopsy, [...] Signed Out ? TEE MUSE MD Pathologist OJL:[id number] Microscopic Description: The microscopic examination substantiates the above captioned diagnoses. Multiple levels of the A and B specimens are examined. ?? Clinical History Osteomyelitis right foot Gross Description Received are two fresh containers, both labeled with the patient's name (Tyson Mcneal), date of (1970). A. ??Additionally labeled first [...] in toto in cassette B1, following decalcification. :[facility] Billing Fee Code(s): 16504(2), 06967(2) [facility] TISSUE STRUCTURE OF TOE OF RIGHT FOOT / Unknown 12/22/2021 7:14 AM CDT Hubert Cheek DPM PATHOLOGY/CYTOLOGY ORDERA BLES Final Result [facility] [address] [place] [address], * (ABNORMAL) POCT glucose (12/21/2021 8:17 PM CDT) GLUCOSE POC 275(H) 70 - 99 mg/dL 12/21/2021 8:59 PM CDT [facility] 12/21/2021 8:17 PM CDT us Roxana HUGHES POCT ORDERABLES - DEVICE Final Result Performing Organization Address [facility] Co de Phone Number [facility] [address] [place] [address], [place] [phone] * (ABNORMAL) POCT glucose (12/21/2021 4:49 PM CDT) GLUCOSE POC 275(H) 70 - 99 mg/dL 12/21/2021 4:53 PM CDT [facility] 12/21/2021 4:49 PM CDT us Roxana Chandler APSUSAN POCT ORDERABLES - DEVICE Final Result Performing Organization Address [facility] Co de Phone Number [facility] [address] [place] [address], [place] [phone] * (ABNORMAL) POCT glucose (12/21/2021 12:13 PM CDT) GLUCOSE POC 287(H) 70 - 99 mg/dL 12/21/2021 1:13 PM CDT [facility] 12/21/2021 12:1 3 PM CDT us Roxana Chandler APNP POCT ORDERABLES - DEVICE Final Result Performing Organization Address [facility]/ZIP Co de Phone Number [facility] [address] [place] [address], [place] [phone] * (ABNORMAL) BASIC METABOLIC PANEL (12/21/2021 7:42 AM CDT) GLUCOSE 162(H) 70 - 99 MG/DL 12/21/2021 8:22 AM T [facility] BUN 26(H) 7 - 18 MG/DL 12/21/2021 8:22 AM T [facility] CREATININE S/P/B 1.21(H) 0.55 - 1.02 MG/DL 12/21/2021 8:22 AM T [facility] SODIUM S/P/B 138 136 - 145 MMOL/L 12/21/2021 8:22 AM T [facility] POTASSIUM S/P/B 4.7 3.5 - 5.1 MMOL/L 12/21/2021 8:22 AM T [facility] CHLORIDE S/P/B 105 100 - 108 MMOL/L 12/21/2021 8:22 AM T [facility] CO2 28.6 21 - 32 MMOL/L 12/21/2021 8:22 AM T [facility] CALCIUM S/P/B 9.8 8.5 - 10.1 MG/DL 12/21/2021 8:22 AM T [facility] ANION GAP 4.4(L) 5 - 15 MMOL/L 12/21/2021 8:22 AM [facility] BUN CREATININE RATIO 21.5 6 - 26 12/21/2021 8:22 AM T [facility] GFR ESTIMATE 55(L) >90 ML/MIN/1.7 3 M2 12/21/2021 8:22 AM [facility] Comment: NOTE: eGFR is not calculated for patients <18 years of age. This is an estimated GFR calculation using the new CKD EPI creatinine equation without race and so does not require a correction factor for race. This estimated GFR should not be used for calculating drug doses. 12/21/2021 7:42 AM CDT Darah R Dodt DATA REPORTING ANALYST LABORATORY Final Result [facility] [address] [place] [address], * (ABNORMAL) CBC W/DIFF AUTOMATED (12/21/2021 7:42 AM CDT) [facility] WBC 7.3 4.5 - 11.0 x10'3/uL 12/21/2021 7:56 AM CDT [facility] RBC 4.08(L) 4.20 - 5.40 x10'6/uL 12/21/2021 7:56 AM CDT [facility] HGB 12.2 12.0 - 16.0 G/DL 12/21/2021 7:56 AM CDT [facility] HCT 37.0(L) 38.0 - 48.0 % 12/21/2021 7:56 AM CDT [facility] MCV 90.7 81.0 - 99.0 FL 12/21/2021 7:56 AM CDT [facility] MCH 29.9 27.0 - 31.0 PG 12/21/2021 7:56 AM CDT [facility] MCHC 33.0 32.0 - 36.0 G/DL 12/21/2021 7:56 AM CDT [facility] RDW 12.9 11.5 - 14.5 % 12/21/2021 7:56 AM CDT [facility] PLT 293 130 - 400 x10'3/uL 12/21/2021 7:56 AM CDT [facility] MPV 10.7 9.3 - 12.2 FL 12/21/2021 7:56 AM CDT [facility] DIFFERENTIAL TYPE AUTOMATED DIFFERENTIAL 12/21/2021 7:56 AM CDT [facility] NEUTROPHILS % 55.5 % 12/21/2021 7:56 AM CDT [facility] LYMPHOCYTES % 36.5 % 12/21/2021 7:56 AM CDT [facility] MONOCYTES % 5.5 % 12/21/2021 7:56 AM CDT [facility] EOSINOPHILS 1.5 % 12/21/2021 7:56 AM CDT [facility] BASOPHILS 0.7 % 12/21/2021 7:56 AM CDT [facility] IMMATURE GRANS % 0.3 % 12/22/19 7:56 AM CDT [facility] ABS. NEUTROPHILS TOTAL 4.04 1.80 - 7.70 x10'3/uL 12/21/2021 7:56 AM CDT [facility] ABS. LYMPHOCYTES 2.65 1.00 - 4.80 x10'3/uL 12/21/2021 7:56 AM CDT [facility] ABS. MONOCYTES 0.40 0.24 - 0.86 x10'3/uL 12/21/2021 7:56 AM CDT [facility] ABS. EOSINOPHILS 0.11 0.04 - 0.36 x10'3/uL 12/21/2021 7:56 AM CDT [facility] ABS. BASOPHILS 0.05 0.01 - 0.08 x10'3/uL 12/21/2021 7:56 AM CDT [facility] ABS. IMMATURE GRANULOCYTES 0.02 0.00 - 0.49 x10'3/uL 12/21/2021 7:56 AM CDT [facility] 12/21/2021 7:42 AM CDT Eduardo Aguillon DATA REPORTING ANALYST LABORATORY Final Result [facility] [address] [place] [phone], * Vancomycin Random Level (12/21/2021 7:42 AM CDT) VANCOMYCIN RANDOM 23.4 MCG/ML 12/21/2021 8:22 AM CDT [facility] Comment:NO THERAPEUTIC RANGE AVAILABLE VANCOMYCIN UNKNOWN LAST DOSE 12/21/2021 9:04 AM CDT [facility] 12/21/2021 7:42 AM CDT Wanda Mercer DATA REPORTING ANALYST LABORATORY Final Resul t Performing Organization Address [facility] Co de Phone Number [facility] [address] [place] [phone], * MAGNESIUM (12/21/2021 7:42 AM CDT) MAGNESIUM 2.0 1.8 - 2.4 MG/DL 12/21/2021 8:22 AM CDT [facility] 12/21/2021 7:42 AM CDT Eduardo Aguillon DATA REPORTING ANALYST LABORATORY Final Result Performing Organization Address City/[facility]/ZIP Co de Phone Number [facility] [address] [place] [id number], * (ABNORMAL) POCT glucose (12/21/2021 6:35 AM CDT) GLUCOSE POC 155(H) 70 - 99 mg/dL 12/21/2021 6:39 AM CDT [facility] 12/21/2021 6:35 AM CDT us Roxana Chandler APNP POCT ORDERABLES - DEVICE Final Result Performing Organization Address [facility]/ZIP Co de Phone Number [facility] [address] [place] [phone], [place] [phone] * (ABNORMAL) POCT glucose (12/20/2021 9:23 PM CDT) GLUCOSE POC 231(H) 70 - 99 mg/dL 12/20/2021 9:34 PM CDT [facility] 12/20/2021 9:23 PM CDT us Eduardo Mitchell Oscar DATA REPORTING ANALYST POCT ORDERABLES - DEVICE Final Result Performing Organization Address [facility] Co de Phone Number [facility] [address] [place] [phone], [place] [phone] * MRI FOOT LT WO CON (12/20/2021 [...] Gastelum MD, 12/20/2021 9:10 PM Eduardo Aguillon DATA REPORTING ANALYST MRI Final Result * (ABNORMAL) POCT glucose (12/20/2021 4:35 PM CDT) GLUCOSE POC 225(H) 70 - 99 mg/dL 12/20/2021 4:48 PM CDT [facility] 12/20/2021 4:35 PM CDT Eduardo Aguillon DATA REPORTING ANALYST POCT ORDERABLES - DEVICE Final Result [facility] [address] [place] [address], [place] [phone] * (ABNORMAL) POCT glucose (12/20/2021 11:37 AM CDT) GLUCOSE POC 233(H) 70 - 99 mg/dL 12/20/2021 11:51 AM CDT [facility] 12/20/2021 11:3 7 AM CDT Eduardo Mitchell Oscar DATA REPORTING ANALYST POCT ORDERABLES - DEVICE Final Result [facility] [address] [place] [phone], * (ABNORMAL) BASIC METABOLIC PANEL (12/20/2021 9:40 AM CDT) GLUCOSE 182(H) 70 - 99 MG/DL 12/20/2021 10:32 AM CDT [facility] BUN 24(H) 7 - 18 MG/DL 12/20/2021 10:32 AM CDT [facility] CREATININE S/P/B 1.14(H) 0.55 - 1.02 MG/DL 12/20/2021 10:32 AM CDT [facility] SODIUM S/P/B 137 136 - 145 MMOL/L 12/20/2021 10:32 AM CDT [facility] POTASSIUM S/P/B 4.8 3.5 - 5.1 MMOL/L 12/20/2021 10:32 AM CDT [facility] CHLORIDE S/P/B 105 100 - 108 MMOL/L 12/20/2021 10:32 AM CDT [facility] CO2 26.8 21 - 32 MMOL/L 12/20/2021 10:32 AM CDT [facility] CALCIUM S/P/B 9.6 8.5 - 10.1 MG/DL 12/20/2021 10:32 AM CDT [facility] ANION GAP 5.2 5 - 15 MMOL/L 12/20/2021 10:32 AM CDT [facility] BUN CREATININE RATIO 21.1 6 - 26 12/20/2021 10:32 AM CDT [facility] GFR ESTIMATE 59(L) >90 ML/MIN/1.7 3 M2 12/20/2021 10:32 AM CDT [facility] Comment: NOTE: eGFR is not calculated for patients <18 years of age. This is an estimated GFR calculation using the new CKD EPI creatinine equation without race and so does not require a correction factor for race. This estimated GFR should not be used for calculating drug doses. 12/20/2021 9:40 AM CDT Eduardo Aguillon APRN LABORATORY Final Result [facility] [address] [place] [phone], * (ABNORMAL) CBC W/DIFF AUTOMATED (12/20/2021 9:40 AM CDT) WBC 8.3 4.5 - 11.0 x10'3/uL 12/20/2021 10:12 AM CDT [facility] RBC 4.03(L) 4.20 - 5.40 x10'6/uL 12/20/2021 10:12 AM CDT [facility] HGB 12.2 12.0 - 16.0 G/DL 12/20/2021 10:12 AM CDT [facility] HCT 36.4(L) 38.0 - 48.0 % 12/20/2021 10:12 AM CDT [facility] MCV 90.3 81.0 - 99.0 FL 12/20/2021 10:12 AM CDT [facility] MCH 30.3 27.0 - 31.0 PG 12/20/2021 10:12 AM CDT [facility] MCHC 33.5 32.0 - 36.0 G/DL 12/20/2021 10:12 AM CDT [facility] RDW 12.8 11.5 - 14.5 % 12/20/2021 10:12 AM CDT [facility] PLT 319 130 - 400 x10'3/uL 12/20/2021 10:12 AM CDT [facility] MPV 11.1 9.3 - 12.2 FL 12/20/2021 10:12 AM CDT [facility] DIFFERENTIAL TYPE AUTOMATED DIFFERENTIAL 12/20/2021 10:12 AM CDT [facility] NEUTROPHILS % 60.2 % 12/20/2021 10:12 AM CDT [facility] LYMPHOCYTES % 32.6 % 12/20/2021 10:12 AM CDT [facility] MONOCYTES % 5.3 % 12/20/2021 10:12 AM CDT [facility] EOSINOPHILS 1.1 % 12/20/2021 10:12 AM CDT [facility] BASOPHILS 0.6 % 12/20/2021 10:12 AM CDT [facility] IMMATURE GRANS % 0.2 % 12/21/19 10:12 AM CDT [facility] ABS. NEUTROPHILS TOTAL 5.01 1.80 - 7.70 x10'3/uL 12/20/2021 10:12 AM CDT [facility] ABS. LYMPHOCYTES 2.71 1.00 - 4.80 x10'3/uL 12/20/2021 10:12 AM CDT [facility] ABS. MONOCYTES 0.44 0.24 - 0.86 x10'3/uL 12/20/2021 10:12 AM CDT [facility] ABS. EOSINOPHILS 0.09 0.04 - 0.36 x10'3/uL 12/20/2021 10:12 AM CDT [facility] ABS. BASOPHILS 0.05 0.01 - 0.08 x10'3/uL 12/20/2021 10:12 AM CDT [facility] ABS. IMMATURE GRANULOCYTES 0.02 0.00 - 0.49 x10'3/uL 12/20/2021 10:12 AM CDT [facility] 12/20/2021 9:40 AM CDT Eduardo Aguillon APRN LABORATORY Final Result [facility] [address] [place] [id number], * MAGNESIUM (12/20/2021 9:40 AM CDT) MAGNESIUM 2.0 1.8 - 2.4 MG/DL 12/20/2021 10:32 AM CDT [facility] 12/20/2021 9:40 AM CDT Eduardo Aguillon APRN LABORATORY Final Result [facility] [address] [place] [address], [place] [phone] * (ABNORMAL) POCT glucose (12/20/2021 6:28 AM CDT) GLUCOSE POC 200(H) 70 - 99 mg/dL 12/20/2021 6:37 AM CDT [facility] 12/20/2021 6:28 AM CDT us Darah R Dodt DATA REPORTING ANALYST POCT ORDERABLES - DEVICE Final Result Performing Organization Address [facility] Co de Phone Number [facility] [address] [place] [address], [place] [phone] * (ABNORMAL) POCT glucose (12/20/2021 2:19 AM CDT) GLUCOSE POC 272(H) 70 - 99 mg/dL 12/20/2021 2:22 AM CDT [facility] 12/20/2021 2:19 AM CDT us Roxana Bradleyxavier HUGHES POCT ORDERABLES - DEVICE Final Result Performing Organization Address [facility] Co de Phone Number [facility] [address] [place] [address], [place] [phone] * (ABNORMAL) POCT glucose (12/19/2021 8:42 PM CDT) GLUCOSE POC 300(H) 70 - 99 mg/dL 12/19/2021 8:45 PM CDT [facility] 12/19/2021 8:42 PM CDT Roxana Bradleyxavier HUGHES POCT ORDERABLES - DEVICE Final Result Performing Organization Address City/[facility] Co de Phone Number [facility] [address] [place] [address], [place] [phone] * (ABNORMAL) URINALYSIS WI REFLEX TO CULTURE (12/19/2021 4:46 PM CDT) SPECIMEN TYPE URINE CLEAN CATCH 12/19/2021 4:46 PM CDT [facility] COLOR (U) LIGHT YELLOW 12/19/2021 5:03 PM CDT [facility] TRANSPARENCY CLEAR 12/19/2021 5:03 PM CDT [facility] SPECIFIC GRAVITY (U) 1.014 1.001 - 1.030 12/19/2021 5:03 PM CDT [facility] U PH 5.5 5.0 - 9.0 12/19/2021 5:03 PM CDT [facility] LEUKOCYTES (U) NEGATIVE NEGATIVE 12/19/2021 5:03 PM CDT [facility] NITRITES NEGATIVE NEGATIVE 12/19/2021 5:03 PM CDT [facility] PROTEIN (U) NEGATIVE <30 MG/DL 12/19/2021 5:03 PM CDT [facility] URINE GLUCOSE NORMAL NORMAL MG/DL 12/19/2021 5:03 PM T [facility] KETONES MG/DL (U) NEGATIVE NEGATIVE MG/DL 12/19/2021 5:03 PM CDT [facility] UROBILINOGEN NORMAL NORMAL MG/DL 12/19/2021 5:03 PM CDT [facility] BILIRUBIN (U) NEGATIVE NEGATIVE MG/DL 12/19/2021 5:03 PM CDT [facility] BLOOD (U) NEGATIVE NEGATIVE 12/19/2021 5:03 PM T [facility] CULTURE & SENSITIVITY INDICATED? CULTURE IS NOT INDICATED 12/19/2021 5:03 PM CDT [facility] MUCUS RARE /LPF 12/19/2021 5:03 PM CDT [facility] WBC/HPF 1 <6 /HPF 12/19/2021 5:03 PM CDT [facility] RBC/HPF <1 <6 /HPF 12/19/2021 5:03 PM CDT [facility] BACTERIA (U) RARE(A) NONE /HPF 12/19/2021 5:03 PM CDT [facility] SQUAMOUS EPITHELIALS RARE /HPF 12/19/2021 5:03 PM CDT [facility] URINE SPECIMEN OBTAINED BY CLEAN CATCH PROCEDURE / Unknown 12/19/2021 4:46 PM CDT Roxana Chandler ELELN URINE ORDERABLES Final Re sult [facility] [address] [place] [address], [place] [phone] * (ABNORMAL) POCT glucose (12/19/2021 4:33 PM CDT) GLUCOSE POC 162(H) 70 - 99 mg/dL 12/19/2021 4:34 PM CDT [facility] 12/19/2021 4:33 PM CDT Roxana Bradleyjohn ELLEN POCT ORDERABLES - DEVICE Final Result Performing Organization Address [facility]/ZIP Co de Phone Number [facility] [address] [place] [address], [place] [phone] * (ABNORMAL) POCT glucose (12/19/2021 12:38 PM CDT) GLUCOSE POC 202(H) 70 - 99 mg/dL 12/19/2021 12:41 PM CDT [facility] 12/19/2021 12:3 8 PM CDT us Roxana Chandler ELLEN POCT ORDERABLES - DEVICE Final Result Performing Organization Address [facility]/ZIP Co de Phone Number [facility] [address] [place] [address], [place] [phone] * (ABNORMAL) COMPREHENSIVE METABOLIC PANEL (12/19/2021 5:30 AM CDT) [facility] GLUCOSE 91 70 - 99 MG/DL 12/19/2021 6:07 AM CDT [facility] BUN 21(H) 7 - 18 MG/DL 12/19/2021 6:07 AM CDT [facility] CREATININE S/P/B 1.02 0.55 - 1.02 MG/DL 12/19/2021 6:07 AM CDT [facility] SODIUM S/P/B 137 136 - 145 MMOL/L 12/19/2021 6:07 AM CDT [facility] POTASSIUM S/P/B 4.5 3.5 - 5.1 MMOL/L 12/19/2021 6:07 AM CDT [facility] CHLORIDE S/P/B 105 100 - 108 MMOL/L 12/19/2021 6:07 AM CDT [facility] CO2 28.8 21 - 32 MMOL/L 12/19/2021 6:07 AM CDT [facility] CALCIUM S/P/B 9.4 8.5 - 10.1 MG/DL 12/19/2021 6:07 AM CDT [facility] BILIRUBIN TOTAL S/P/B 0.3 0.2 - 1.2 MG/DL 12/19/2021 6:07 AM CDT [facility] Comment: THIS ASSAY IS NOT RECOMMENDED FOR PATIENTS UNDERGOING TREATMENT WITH ELTROMBOPAG DUE TO THE POTENTIAL FOR FALSELY ELEVATED RESULTS. TOTAL PROTEIN S/P/B 8.0 6.4 - 8.2 G/DL 12/19/2021 6:07 AM CDT [facility] ALBUMIN S/P/B 2.9(L) 3.4 - 5.0 G/DL 12/19/2021 6:07 AM CDT [facility] AST 16 15 - 37 U/L 12/19/2021 6:07 AM CDT [facility] ALT 22 14 - 55 U/L 12/19/2021 6:07 AM CDT [facility] ALKALINE PHOSPHATASE S/P/B 120 50 - 136 U/L 12/19/2021 6:07 AM CDT [facility] ANION GAP 3.2(L) 5 - 15 MMOL/L 12/19/2021 6:07 AM T [facility] BUN CREATININE RATIO 20.6 6 - 26 12/19/2021 6:07 AM T [facility] A/G RATIO 0.6(L) 1.0 - 2.0 RATIO 12/19/2021 6:07 AM T [facility] GFR ESTIMATE 67(L) >90 ML/MIN/1.7 3 M2 12/19/2021 6:07 AM CDT [facility] Comment: NOTE: eGFR is not calculated for patients <18 years of age. This is an estimated GFR calculation using the new CKD EPI creatinine equation without race and so does not require a correction factor for race. This estimated GFR should not be used for calculating drug doses. 12/19/2021 5:30 AM CDT Eduardo Aguillon APRN LABORATORY Final Result [facility] [address] [place] [address], * (ABNORMAL) CBC W/DIFF AUTOMATED (12/19/2021 5:30 AM CDT) WBC 8.6 4.5 - 11.0 x10'3/uL 12/19/2021 5:41 AM CDT [facility] RBC 3.74(L) 4.20 - 5.40 x10'6/uL 12/19/2021 5:41 AM CDT [facility] HGB 11.3(L) 12.0 - 16.0 G/DL 12/19/2021 5:41 AM CDT [facility] HCT 33.7(L) 38.0 - 48.0 % 12/19/2021 5:41 AM CDT [facility] MCV 90.1 81.0 - 99.0 FL 12/19/2021 5:41 AM CDT [facility] MCH 30.2 27.0 - 31.0 PG 12/19/2021 5:41 AM CDT [facility] MCHC 33.5 32.0 - 36.0 G/DL 12/19/2021 5:41 AM CDT [facility] RDW 12.9 11.5 - 14.5 % 12/19/2021 5:41 AM CDT [facility] PLT 289 130 - 400 x10'3/uL 12/19/2021 5:41 AM T [facility] MPV 10.8 9.3 - 12.2 FL 12/19/2021 5:41 AM CDT [facility] DIFFERENTIAL TYPE AUTOMATED DIFFERENTIAL 12/19/2021 5:41 AM CDT [facility] NEUTROPHILS % 53.4 % 12/19/2021 5:41 AM CDT [facility] LYMPHOCYTES % 39.1 % 12/19/2021 5:41 AM CDT [facility] MONOCYTES % 5.7 % 12/19/2021 5:41 AM CDT [facility] EOSINOPHILS 0.9 % 12/19/2021 5:41 AM CDT [facility] BASOPHILS 0.5 % 12/19/2021 5:41 AM CDT [facility] IMMATURE GRANS % 0.4 % 12/20/19 5:41 AM CDT [facility] ABS. NEUTROPHILS TOTAL 4.57 1.80 - 7.70 x10'3/uL 12/19/2021 5:41 AM CDT [facility] ABS. LYMPHOCYTES 3.35 1.00 - 4.80 x10'3/uL 12/19/2021 5:41 AM CDT [facility] ABS. MONOCYTES 0.49 0.24 - 0.86 x10'3/uL 12/19/2021 5:41 AM CDT [facility] ABS. EOSINOPHILS 0.08 0.04 - 0.36 x10'3/uL 12/19/2021 5:41 AM CDT [facility] ABS. BASOPHILS 0.04 0.01 - 0.08 x10'3/uL 12/19/2021 5:41 AM CDT [facility] ABS. IMMATURE GRANULOCYTES 0.03 0.00 - 0.49 x10'3/uL 12/19/2021 5:41 AM CDT [facility] 12/19/2021 5:30 AM CDT Eduardo Aguillon DATA REPORTING ANALYST LABORATORY Final Result [facility] [address] [place] [address], [place] [phone] * Vancomycin Random Level (12/19/2021 5:30 AM CDT) VANCOMYCIN RANDOM 22.4 MCG/ML 12/19/2021 6:03 AM CDT [facility] Comment:NO THERAPEUTIC RANGE AVAILABLE VANCOMYCIN UNKNOWN LAST DOSE 12/19/2021 8:03 AM CDT [facility] 12/19/2021 5:30 AM CDT Eduardo Aguillon APRN LABORATORY Final Result [facility] [address] [place] [address], [place] [phone] * MAGNESIUM (12/19/2021 5:30 AM CDT) MAGNESIUM 1.9 1.8 - 2.4 MG/DL 12/19/2021 6:07 AM CDT [facility] 12/19/2021 5:30 AM CDT Eduardo Aguillon APRN LABORATORY Final Result Performing Organization Address [facility]/ZIP Co de Phone Number [facility] [address] [place] [address], [place] [phone] * POCT glucose (12/19/2021 1:14 AM CDT) GLUCOSE POC 93 70 - 99 mg/dL 12/19/2021 1:15 AM CDT [facility] 12/19/2021 1:14 AM CDT Eduardo Aguillon APRN POCT ORDERABLES - DEVICE Final Result Performing Organization Address [facility]/ZIP Co de Phone Number [facility] [address] [place] [address], [place] [phone] * (ABNORMAL) POCT glucose (12/19/2021 12:41 AM CDT) GLUCOSE POC 53(L) 70 - 99 mg/dL 12/19/2021 12:43 AM CDT [facility] 12/19/2021 12:4 1 AM CDT Eduardo Aguillon DATA REPORTING ANALYST POCT ORDERABLES - DEVICE Final Result Performing Organization Address [facility]/ZIP Co de Phone Number [facility] [address] [place] [address], [place] [phone] * (ABNORMAL) POCT glucose (12/18/2021 9:14 PM CDT) GLUCOSE POC 114(H) 70 - 99 mg/dL 12/18/2021 9:17 PM CDT [facility] 12/18/2021 9:14 PM CDT Eduardo Aguillon DATA REPORTING ANALYST POCT ORDERABLES - DEVICE Final Result Performing Organization Address [facility] Co de Phone Number [facility] [address] [place] [address], [place] [phone] * (ABNORMAL) POCT glucose (12/18/2021 5:51 PM CDT) GLUCOSE POC 112(H) 70 - 99 mg/dL 12/18/2021 7:07 PM CDT [facility] 12/18/2021 5:51 PM CDT us Eduardo Aguillon APRN POCT ORDERABLES - DEVICE Final Result Performing Organization Address [facility]/ZIP Co de Phone Number [facility] [address] [place] [address], [place] [phone] * (ABNORMAL) POCT glucose (12/18/2021 12:29 PM CDT) GLUCOSE POC 133(H) 70 - 99 mg/dL 12/18/2021 1:05 PM CDT [facility] 12/18/2021 12:2 9 PM CDT Eduardo Mitchell Dodt DATA REPORTING ANALYST POCT ORDERABLES - DEVICE Final Result [facility] [address] [place] [address], [place] [phone] * (ABNORMAL) COMPREHENSIVE METABOLIC PANEL (12/18/2021 5:30 AM CDT) GLUCOSE 131(H) 70 - 99 MG/DL 12/18/2021 6:15 AM CDT [facility] BUN 19(H) 7 - 18 MG/DL 12/18/2021 6:15 AM CDT [facility] CREATININE S/P/B 0.99 0.55 - 1.02 MG/DL 12/18/2021 6:15 AM CDT [facility] SODIUM S/P/B 139 136 - 145 MMOL/L 12/18/2021 6:15 AM CDT [facility] POTASSIUM S/P/B 4.0 3.5 - 5.1 MMOL/L 12/18/2021 6:15 AM CDT [facility] CHLORIDE S/P/B 107 100 - 108 MMOL/L 12/18/2021 6:15 AM CDT [facility] CO2 27.0 21 - 32 MMOL/L 12/18/2021 6:15 AM CDT [facility] CALCIUM S/P/B 8.9 8.5 - 10.1 MG/DL 12/18/2021 6:15 AM CDT [facility] BILIRUBIN TOTAL S/P/B 0.2 0.2 - 1.2 MG/DL 12/18/2021 6:15 AM T [facility] Comment: THIS ASSAY IS NOT RECOMMENDED FOR PATIENTS UNDERGOING TREATMENT WITH ELTROMBOPAG DUE TO THE POTENTIAL FOR FALSELY ELEVATED RESULTS. TOTAL PROTEIN S/P/B 7.7 6.4 - 8.2 G/DL 12/18/2021 6:15 AM CDT [facility] ALBUMIN S/P/B 2.8(L) 3.4 - 5.0 G/DL 12/18/2021 6:15 AM CDT [facility] AST 13(L) 15 - 37 U/L 12/18/2021 6:15 AM T [facility] ALT 17 14 - 55 U/L 12/18/2021 6:15 AM T [facility] ALKALINE PHOSPHATASE S/P/B 118 50 - 136 U/L 12/18/2021 6:15 AM T [facility] ANION GAP 5.0 5 - 15 MMOL/L 12/18/2021 6:15 AM T [facility] BUN CREATININE RATIO 19.2 6 - 26 12/18/2021 6:15 AM T [facility] A/G RATIO 0.6(L) 1.0 - 2.0 RATIO 12/18/2021 6:15 AM [facility] GFR ESTIMATE 69(L) >90 ML/MIN/1.7 3 M2 12/18/2021 6:15 AM T [facility] Comment: NOTE: eGFR is not calculated for patients <18 years of age. This is an estimated GFR calculation using the new CKD EPI creatinine equation without race and so does not require a correction factor for race. This estimated GFR should not be used for calculating drug doses. 12/18/2021 5:30 AM CDT us Wanda Mercer DATA REPORTING ANALYST LABORATORY Final Resul t [facility] [address] [place] [address], * (ABNORMAL) CBC W/DIFF AUTOMATED (12/18/2021 5:30 AM CDT) [facility] WBC 7.9 4.5 - 11.0 x10'3/uL 12/18/2021 5:57 AM CDT [facility] RBC 3.65(L) 4.20 - 5.40 x10'6/uL 12/18/2021 5:57 AM CDT [facility] HGB 11.1(L) 12.0 - 16.0 G/DL 12/18/2021 5:57 AM CDT [facility] HCT 32.6(L) 38.0 - 48.0 % 12/18/2021 5:57 AM CDT [facility] MCV 89.3 81.0 - 99.0 FL 12/18/2021 5:57 AM CDT [facility] MCH 30.4 27.0 - 31.0 PG 12/18/2021 5:57 AM CDT [facility] MCHC 34.0 32.0 - 36.0 G/DL 12/18/2021 5:57 AM CDT [facility] RDW 12.7 11.5 - 14.5 % 12/18/2021 5:57 AM CDT [facility] PLT 287 130 - 400 x10'3/uL 12/18/2021 5:57 AM CDT [facility] MPV 10.8 9.3 - 12.2 FL 12/18/2021 5:57 AM CDT [facility] DIFFERENTIAL TYPE AUTOMATED DIFFERENTIAL 12/18/2021 5:57 AM CDT [facility] NEUTROPHILS % 53.2 % 12/18/2021 5:57 AM CDT [facility] LYMPHOCYTES % 39.9 % 12/18/2021 5:57 AM CDT [facility] MONOCYTES % 5.0 % 12/18/2021 5:57 AM CDT [facility] EOSINOPHILS 1.3 % 12/18/2021 5:57 AM CDT [facility] BASOPHILS 0.5 % 12/18/2021 5:57 AM CDT [facility] IMMATURE GRANS % 0.1 % 12/19/19 5:57 AM CDT [facility] ABS. NEUTROPHILS TOTAL 4.18 1.80 - 7.70 x10'3/uL 12/18/2021 5:57 AM CDT [facility] ABS. LYMPHOCYTES 3.13 1.00 - 4.80 x10'3/uL 12/18/2021 5:57 AM CDT [facility] ABS. MONOCYTES 0.39 0.24 - 0.86 x10'3/uL 12/18/2021 5:57 AM CDT [facility] ABS. EOSINOPHILS 0.10 0.04 - 0.36 x10'3/uL 12/18/2021 5:57 AM CDT [facility] ABS. BASOPHILS 0.04 0.01 - 0.08 x10'3/uL 12/18/2021 5:57 AM CDT [facility] ABS. IMMATURE GRANULOCYTES 0.01 0.00 - 0.49 x10'3/uL 12/18/2021 5:57 AM CDT [facility] 12/18/2021 5:30 AM CDT Wanda Mercer DATA REPORTING ANALYST LABORATORY Final Resul t Performing Organization Address [facility] Co de Phone Number [facility] [address] [place] [phone], * Vancomycin Random Level (12/18/2021 5:30 AM CDT) VANCOMYCIN RANDOM 22.9 MCG/ML 12/18/2021 6:15 AM CDT [facility] Comment:NO THERAPEUTIC RANGE AVAILABLE VANCOMYCIN UNKNOWN LAST DOSE 12/18/2021 6:39 AM CDT [facility] 12/18/2021 5:30 AM CDT Wanda Maynard MD LABORATORY Final Result Performing Organization Address [facility] Co de Phone Number [facility] [address] [place] [address], * (ABNORMAL) POCT glucose (12/17/2021 11:02 PM CDT) GLUCOSE POC 108(H) 70 - 99 mg/dL 12/17/2021 11:07 PM CDT [facility] 12/17/2021 11:0 2 PM CDT David Schofield PA-C POCT ORDERABLES - DEVICE Katheryn l Result Performing Organization Address [facility] Co de Phone Number [facility] [address] [place] [phone], * (ABNORMAL) POCT glucose (12/17/2021 10:28 PM CDT) GLUCOSE POC 67(L) 70 - 99 mg/dL 12/17/2021 10:30 PM CDT [facility] 12/17/2021 10:2 8 PM CDT David Wolf PA-C POCT ORDERABLES - DEVICE Katheryn l Result [facility] [address] [place] [address], [place] [phone] * (ABNORMAL) POCT glucose (12/17/2021 7:49 PM CDT) GLUCOSE POC 164(H) 70 - 99 mg/dL 12/17/2021 7:52 PM CDT [facility] 12/17/2021 7:49 PM CDT David MARIE-C POCT ORDERABLES - DEVICE Katheryn l Result Performing Organization Address City/[facility]/ZIP Co de Phone Number [facility] [address] [place] [id number], [place] [phone] * (ABNORMAL) POCT glucose (12/17/2021 5:12 PM CDT) GLUCOSE POC 187(H) 70 - 99 mg/dL 12/17/2021 7:52 PM CDT [facility] 12/17/2021 5:12 PM CDT David Schofield PA-C POCT ORDERABLES - DEVICE Katheryn l Result [facility] [address] [place] [id number], [place] [phone] * (ABNORMAL) POCT glucose (12/17/2021 12:54 PM CDT) GLUCOSE POC 139(H) 70 - 99 mg/dL 12/17/2021 12:56 PM CDT [facility] 12/17/2021 12:5 4 PM CDT David Schofield PA-C POCT ORDERABLES - DEVICE Katheryn l Result [facility] [address] [place] [address], * MRI FOOT RT WO CON (12/17/2021 [...] Ward DO, 12/17/2021 12:47 PM Wanda Mercer APRN MRI Final Resul t * MAGNESIUM (12/17/2021 6:10 AM CDT) [facility] MAGNESIUM 2.1 1.8 - 2.4 MG/DL 12/17/2021 8:54 AM CDT [facility] 12/17/2021 6:10 AM CDT David Schofield PA-C LABORATORY Final Result [facility] [address] [place] [address], [place] [phone] * (ABNORMAL) COMPREHENSIVE METABOLIC PANEL (12/17/2021 6:10 AM CDT) [facility] GLUCOSE 154(H) 70 - 99 MG/DL 12/17/2021 6:47 AM CDT [facility] BUN 17 7 - 18 MG/DL 12/17/2021 6:47 AM T [facility] CREATININE S/P/B 0.92 0.55 - 1.02 MG/DL 12/17/2021 6:47 AM CDT [facility] SODIUM S/P/B 137 136 - 145 MMOL/L 12/17/2021 6:47 AM CDT [facility] POTASSIUM S/P/B 3.9 3.5 - 5.1 MMOL/L 12/17/2021 6:47 AM T [facility] CHLORIDE S/P/B 105 100 - 108 MMOL/L 12/17/2021 6:47 AM CDT [facility] CO2 29.7 21 - 32 MMOL/L 12/17/2021 6:47 AM T [facility] CALCIUM S/P/B 9.2 8.5 - 10.1 MG/DL 12/17/2021 6:47 AM T [facility] BILIRUBIN TOTAL S/P/B 0.4 0.2 - 1.2 MG/DL 12/17/2021 6:47 AM T [facility] Comment: THIS ASSAY IS NOT RECOMMENDED FOR PATIENTS UNDERGOING TREATMENT WITH ELTROMBOPAG DUE TO THE POTENTIAL FOR FALSELY ELEVATED RESULTS. TOTAL PROTEIN S/P/B 8.2 6.4 - 8.2 G/DL 12/17/2021 6:47 AM CDT [facility] ALBUMIN S/P/B 3.1(L) 3.4 - 5.0 G/DL 12/17/2021 6:47 AM T [facility] AST 14(L) 15 - 37 U/L 12/17/2021 6:47 AM CDT [facility] ALT 20 14 - 55 U/L 12/17/2021 6:47 AM CDT [facility] ALKALINE PHOSPHATASE S/P/B 126 50 - 136 U/L 12/17/2021 6:47 AM CDT [facility] ANION GAP 2.3(L) 5 - 15 MMOL/L 12/17/2021 6:47 AM CDT [facility] BUN CREATININE RATIO 18.5 6 - 26 12/17/2021 6:47 AM CDT [facility] A/G RATIO 0.6(L) 1.0 - 2.0 RATIO 12/17/2021 6:47 AM CDT [facility] GFR ESTIMATE 76(L) >90 ML/MIN/1.7 3 M2 12/17/2021 6:47 AM CDT [facility] Comment: NOTE: eGFR is not calculated for patients <18 years of age. This is an estimated GFR calculation using the new CKD EPI creatinine equation without race and so does not require a correction factor for race. This estimated GFR should not be used for calculating drug doses. 12/17/2021 6:10 AM CDT Wanda Mercer DATA REPORTING ANALYST LABORATORY Final Resul t [facility] [address] [place] [address], * (ABNORMAL) CBC W/DIFF AUTOMATED (12/17/2021 6:10 AM CDT) WBC 7.9 4.5 - 11.0 x10'3/uL 12/17/2021 6:35 AM CDT [facility] RBC 3.99(L) 4.20 - 5.40 x10'6/uL 12/17/2021 6:35 AM CDT [facility] HGB 12.2 12.0 - 16.0 G/DL 12/17/2021 6:35 AM CDT [facility] HCT 36.2(L) 38.0 - 48.0 % 12/17/2021 6:35 AM CDT [facility] MCV 90.7 81.0 - 99.0 FL 12/17/2021 6:35 AM CDT [facility] MCH 30.6 27.0 - 31.0 PG 12/17/2021 6:35 AM CDT [facility] MCHC 33.7 32.0 - 36.0 G/DL 12/17/2021 6:35 AM CDT [facility] RDW 12.8 11.5 - 14.5 % 12/17/2021 6:35 AM CDT [facility] PLT 292 130 - 400 x10'3/uL 12/17/2021 6:35 AM CDT [facility] MPV 10.9 9.3 - 12.2 FL 12/17/2021 6:35 AM CDT [facility] DIFFERENTIAL TYPE AUTOMATED DIFFERENTIAL 12/17/2021 6:35 AM CDT [facility] NEUTROPHILS % 54.5 % 12/17/2021 6:35 AM CDT [facility] LYMPHOCYTES % 38.5 % 12/17/2021 6:35 AM CDT [facility] MONOCYTES % 5.2 % 12/17/2021 6:35 AM CDT [facility] EOSINOPHILS 1.1 % 12/17/2021 6:35 AM CDT [facility] BASOPHILS 0.4 % 12/17/2021 6:35 AM CDT [facility] IMMATURE GRANS % 0.3 % 12/18/19 6:35 AM CDT [facility] ABS. NEUTROPHILS TOTAL 4.33 1.80 - 7.70 x10'3/uL 12/17/2021 6:35 AM CDT [facility] ABS. LYMPHOCYTES 3.06 1.00 - 4.80 x10'3/uL 12/17/2021 6:35 AM CDT [facility] ABS. MONOCYTES 0.41 0.24 - 0.86 x10'3/uL 12/17/2021 6:35 AM CDT [facility] [facility]. EOSINOPHILS 0.09 0.04 - 0.36 x10'3/uL 12/17/2021 6:35 AM CDT [facility] ABS. BASOPHILS 0.03 0.01 - 0.08 x10'3/uL 12/17/2021 6:35 AM CDT [facility] ABS. IMMATURE GRANULOCYTES 0.02 0.00 - 0.49 x10'3/uL 12/17/2021 6:35 AM CDT [facility] 12/17/2021 6:10 AM CDT us Wanda Mercer APRN LABORATORY Final Resul t [facility] [address] [place] [address], [place] [phone] * (ABNORMAL) Bedside Blood Glucose (12/16/2021 10:21 PM CDT) GLUCOSE WHOLE BLOOD 227(A) 70 - 100 mg/dL us Wanda Mercer APRN NURSING TREATMENT ORDERABLE S - ONCE OR INTERVALS Final Result * (ABNORMAL) POCT glucose (12/16/2021 10:18 PM CDT) GLUCOSE POC 277(H) 70 - 99 mg/dL 12/16/2021 10:21 PM CDT [facility] 12/16/2021 10:1 8 PM CDT Wanda Maynard MD POCT ORDERABLES - DEVICE Fin al Result [facility] [address] [place] [address], * XR FOOT LT 2V (12/16/2021 8:01 [...] MD, 12/16/2021 8:06 PM us Wanda Mercer DATA REPORTING ANALYST GENERAL IMAGING Final Resul t * XR [...] Irving MD, 12/16/2021 8:04 PM Wanda Mercer DATA REPORTING ANALYST GENERAL IMAGING Final Resul t * (ABNORMAL) MAGNESIUM (12/16/2021 7:00 PM CDT) MAGNESIUM 1.6(L) 1.8 - 2.4 MG/DL 12/16/2021 7:45 PM CDT [facility] 12/16/2021 7:00 PM CDT Wanda Maynard MD LABORATORY Final Result Performing Organization Address [facility] de Phone Number [facility] [address] [place] [address], [place] [phone] * (ABNORMAL) Bedside Blood Glucose (12/16/2021 6:50 PM CDT) GLUCOSE WHOLE BLOOD 179(A) 70 - 100 mg/dL Wanda Mercer DATA REPORTING ANALYST NURSING TREATMENT ORDERABLE S - ONCE OR INTERVALS Final Result * (ABNORMAL) POCT glucose (12/16/2021 6:49 PM CDT) GLUCOSE POC 179(H) 70 - 99 mg/dL 12/16/2021 7:03 PM CDT [facility] 12/16/2021 6:49 PM CDT Wanda Maynard MD POCT ORDERABLES - DEVICE Fin al Result Performing Organization Address [facility] Co de Phone Number [facility] [address] [place] [address], [place] [phone] * PARTIAL THROMBOPLASTIN TIME,PTT (12/16/2021 6:34 PM CDT) Pathologist [facility] PTT 26.5 25.1 - 36.5 SEC 12/16/2021 7:31 PM CDT [facility] 12/16/2021 6:34 PM CDT Desiree Mackenzie MD LABORATORY Final Re sult [facility] [address] [place] [address], [place] [phone] * PROTIME/INR, VENOUS (12/16/2021 6:34 PM CDT) [facility] PROTIME 11.9 10.2 - 12.9 SEC 12/16/2021 7:31 PM CDT [facility] INR 1.0 12/16/2021 7:31 PM CDT [facility] Comment: Recommended INR Therapeutic Goals: ??2.0-3.0 Routine Therapy ??2.5-3.5 Mechanical Prosthetic Valves (High Risk) 12/16/2021 6:34 PM CDT Desiree Mackenzie MD LABORATORY Final Re sult [facility] [address] [place] [address], [place] [phone] * Thrombin Time (12/16/2021 6:33 PM CDT) Pathologist [facility] THROMBIN TIME 19 13 - 19 sec 12/21/2021 3:48 AM CDT [employer] JESSIE SANCHEZ Comment: Test Performed by Matth[place], [employer], [address] [place], [place] Mehrdad You M.D., Ph.D., Director of Laboratories , CLIA [id number] 12/16/2021 6:33 PM CDT Wanda Maynard MD LABORATORY Final Result Performing Organization Address [facility] Co de Phone Number [facility] [address] [place], [place] , [place] [phone] * ANTITHROMBIN III ACTIVITY (12/16/2021 6:33 PM CDT) ANTITHROMBIN III ACTIVITY 132 80 - 135 % normal 12/21/2021 3:48 AM CDT [employer] RITA SANCHEZ Comment: Test Performed by [facility], [employer], [address] [place] [address] Mehrdad You M.D., Ph.D., Director of Laboratories , CLIA [id number] 12/16/2021 6:33 PM CDT Wanda Maynard MD LABORATORY Final Result Performing Organization Address [facility] Co de Phone Number [facility] [address] [place], [place] , [place] [phone] * CULTURE, BACTERIA, BLOOD (12/16/2021 6:15 PM CDT) SPEC DESCRIPTION BLOOD 12/16/2021 5:50 PM CDT [facility] SPECIAL REQUESTS NO SPECIAL REQUEST 12/16/2021 5:50 PM CDT [facility] CULTURE RESULT NO GROWTH 5 DAYS 12/21/2021 11:39 AM CDT [facility] BLOOD SPECIMEN OBTAINED FOR BLOOD CULTURE / Unknown 12/16/2021 6:15 PM CDT 12/16/2021 7:09 PM CDT Wanda Mercer APRN MICROBIOLOGY - GENERAL ORDE RABLES Final Result Performing Organization Address [facility] Co de Phone Number [facility] [address] [place] [address], * CULTURE, BACTERIA, BLOOD (12/16/2021 6:15 PM CDT) SPEC DESCRIPTION BLOOD 12/16/2021 5:50 PM CDT [facility] SPECIAL REQUESTS NO SPECIAL REQUEST 12/16/2021 5:50 PM CDT [facility] CULTURE RESULT NO GROWTH 5 DAYS 12/21/2021 11:39 AM CDT [facility] BLOOD SPECIMEN OBTAINED FOR BLOOD CULTURE / Unknown 12/16/2021 6:15 PM CDT 12/16/2021 7:09 PM CDT Wanda Mercer APRN MICROBIOLOGY - GENERAL ORDE RABHUNTER Final Result Performing Organization Address [facility] Co de Phone Number [facility] [address] [place] [address], * ECG 12 lead (12/16/2021 3:41 PM CDT) 12/16/2021 3:41 PM CDT Narrative [facility] ([facility] RAD - 12/16/2021 9:05 PM CDT ?[facility] ? [address], [place] ? Test Date: ?2021-12-16 Pat Name: ? TYSON MCNEAL ?Department: ?? 41 ? Room: ? 4 Gender: ? Female ? Division Chief: ?? : ?1970 ? Requested By: DESIREE MACKENZIE Order Number: [id number] ? Reading MD: ?? Carroll Hushion ? Measurements Intervals ?[place] ? Rate: ? 89 ? P: ?34 CA: ? 160 ?QRS: ?15 QRSD: ? 87 ? T: ?102 QT: ? 364 ? QTc: ?445 ? Interpretive Statements SINUS RHYTHM MINIMAL VOLTAGE CRITERIA FOR LVH, CONSIDER NORMAL VARIANT ??[MEETS CRITERIA IN ONE OF: R(aVL), S(V1), R(V5), R(V5/V6)+S(V1)] NONSPECIFIC T-WAVE ABNORMALITY Compared to ECG 07/10/2021 14:18:26 Ventricular premature complex(es) no longer present T-wave abnormality still present Procedure Note Carroll Varela MD - 12/16/[address] [facility] Test Date: 2021-12-16 Pat Name: TYSON MCNEAL Department: Room: 4 Gender: Female Division Chief: : 1970 Requested By: DESIREE MACKENZIE Order Number: [id number] Reading MD: Carroll Varela Measurements Intervals [place] Rate: 89 P: 34 CA: 160 QRS: 15 QRSD: 87 T: 102 QT: 364 QTc: 445 Interpretive Statements SINUS RHYTHM MINIMAL VOLTAGE CRITERIA FOR LVH, CONSIDER NORMAL VARIANT [MEETS CRITERIAIN ONE OF: R(aVL), S(V1), R(V5), R(V5/V6)+S(V1)] NONSPECIFIC T-WAVE ABNORMALITY Compared to ECG 07/10/2021 14:18:26 Ventricular premature complex(es) no longer present T-wave abnormality still present us Desiree Mackenzie MD ECG ORDERABLES Final Re sult [facility] * USV ART REST W ADRIANA LOW EXT (12/16/2021 3:11 PM CDT) Anatomical Region Laterality Modality Extremity Vascular Ultraso und 12/16/2021 2:52 PM CDT Narrative 12/17/2021 10:33 PM CDT ?ARTERIAL DOPPLER - ADRIANA ?BILATERAL LOWER EXTREMITY ? VASCULAR LAB Pat.Name: ??TYSON MCNEAL ?Pat.ID: ?[id number] ? St.Date: ?? 12/16/2021 ?Refer.: ??Yasmin Segura ? Exam Time: 2:52:00 PM ? Study Type:MARINO VS Arterial Doppler Legs NOHEMY Height: ?66in ?Age: ??1970,51Y ? Sex: ? FEMALE ?Sonogrphr: Shahla Toscano RDMS, RVT Pat. Stat.:Outpatient ?Room: ?ER ? History / Clinical:Rt foot wounds. L>R severe leg pain. Lt foot cool to touch with weak pulse. PMH- DM. HTN. HLD. neurop. L2, L3 amp. BMI 39. Prior 06/21/21- Rt 1.12, Lt 1.24 Procedures: Doppler waveforms, Digit PPG, Systolic Pressures w/ADRIANA Race: ?-British ? ++++++++++++++++++++++++++++++++++++ SUMMARY: ++++++++++++++++++++++++++++++++++++ Joceline ADRIANA Criteria: [...] FINDINGS: ++++++++++++++++++++++++++++++++++++ ++++++++++++++++++++++++++++++++++++ MEASUREMENTS: ++++++++++++++++++++++++++++++++++++ ?DOPPLER Left NEONATAL CRITICAL CARE NURSE ?? NEONATAL CRITICAL CARE NURSE PSV ?123 cm/s ? Left Dist Pop A ?? Dist Pop A PSV ??94.2 cm/s ? Left Dist GLUING MACHINE OFFBEARER ?? Dist GLUING MACHINE OFFBEARER PSV ?46.2 cm/s ? Left Dist DOMINGA ?? Dist DOMINGA PSV ?56.5 cm/s ? Right NEONATAL CRITICAL CARE NURSE ?? NEONATAL CRITICAL CARE NURSE PSV ?145 cm/s ? Right Dist Pop A ?? Dist Pop A PSV ?? 107 cm/s ? Right Dist GLUING MACHINE OFFBEARER ?? Dist GLUING MACHINE OFFBEARER PSV ?56.5 cm/s ? Right Dist DOMINGA [...] EXTREMITY VASCULAR LAB Pat.Name: TYSON MCNEAL Pat.ID: [id number] .Date: 12/16/2021 Refer.MD: Yasmin Segura Exam Time: [...] waveforms, Digit PPG, Systolic Pressures w/ADRIANA Race: -British ++++++++++++++++++++++++++++++++++++ SUMMARY: ++++++++++++++++++++++++++++++++++++ Joceline ADRIANA Criteria: >1.30 [...] FINDINGS: ++++++++++++++++++++++++++++++++++++ ++++++++++++++++++++++++++++++++++++ MEASUREMENTS: ++++++++++++++++++++++++++++++++++++ DOPPLER Left NEONATAL CRITICAL CARE NURSE NEONATAL CRITICAL CARE NURSE PSV 123 cm/s Left Dist Pop A Dist Pop A PSV 94.2 cm/s Left Dist GLUING MACHINE OFFBEARER Dist GLUING MACHINE OFFBEARER PSV 46.2 cm/s Left Dist DOMINGA Dist DOMINGA PSV 56.5 cm/s Right NEONATAL CRITICAL CARE NURSE NEONATAL CRITICAL CARE NURSE PSV 145 cm/s Right Dist Pop A Dist Pop A PSV 107 cm/s Right Dist GLUING MACHINE OFFBEARER Dist GLUING MACHINE OFFBEARER PSV 56.5 cm/s Right Dist DOMINGA Dist [...] PM Hubert Hernandez M.D. Desiree Mackenzie MD [facility] Final Re sult * XR MULTI TOE [...] ulcers to right first and second toes [id number] with diabetic ulcers of the right foot [...] Interpreted By: Angelito Tidwell, 12/16/2021 2:50 PM Desiree Mackenzie MD GENERAL IMAGING Final Re sult * TROPONIN, QUANT (12/16/2021 2:25 PM CDT) TROPONIN I HIGH SENSITIVITY 7 <54 ng/L 12/16/2021 8:31 PM CDT [facility] Comment: HIGH DOSES OF BIOTIN, TROPONIN-SPECIFIC AUTOANTIBODIES, AND ANTIBODY THERAPY CONTAINING HAMA MAY INTERFERE WITH THIS TEST RESULT. CORRELATION TO CLINICAL HISTORY AND PRESENTATION RECOMMENDED. 12/16/2021 2:25 PM CDT Wanda Mercer APRN LABORATORY Final Resul t [facility] [address] [place] [address], [place] [phone] * (ABNORMAL) SED RATE, ERYTHROCYTE (ESR) (12/16/2021 2:25 PM CDT) ESR 70(H) <20 MM/HR 12/16/2021 6:31 PM CDT [facility] Comment:Testing performed on [employer] iSED. 12/16/2021 2:25 PM CDT Desiree Mackenzie MD LABORATORY Final Re sult [facility] [address] [place] [address], [place] [phone] * CK (CPK) (12/16/2021 2:20 PM CDT) CPK 185 21 - 215 U/L 12/16/2021 6:34 PM CDT [facility] 12/16/2021 2:20 PM CDT Wanda Mercer APRN LABORATORY Final Resul t Performing Organization Address [facility]/ZIP Co de Phone Number [facility] [address] [place] [address], [place] [phone] * PHOSPHORUS, INORGANIC PHOSPHATE (12/16/2021 2:20 PM CDT) PHOSPHORUS 4.0 2.5 - 4.9 MG/DL 12/16/2021 6:34 PM CDT [facility] 12/16/2021 2:20 PM CDT Wanda Mercer APRN LABORATORY Final Resul t Performing Organization Address [facility]/ZIP Co de Phone Number [facility] [address] [place] [address], [place] [phone] * (ABNORMAL) MAGNESIUM (12/16/2021 2:20 PM CDT) MAGNESIUM <0.3(LL) 1.8 - 2.4 MG/DL 12/16/2021 6:34 PM CDT [facility] Comment:ZL CALLED CRITICAL R ESULTS AT 16Dec2021 TO AND READ BACK BY CARLOS MERCEDES 12/16/2021 2:20 PM CDT Wanda Mercer APRN LABORATORY Final Resul t [facility] [address] [place] [address], [place] [phone] * (ABNORMAL) C-REACTIVE PROTEIN (12/16/2021 2:20 PM CDT) C-REACTIVE PROTEIN 3.03(H) <0.29 mg/dL 12/16/2021 6:34 PM CDT [facility] 12/16/2021 2:20 PM CDT Desiree Mackenzie MD LABORATORY Final Re sult Performing Organization Address [facility]/ZIP Co de Phone Number [facility] [address] [place] [address], [place] [phone] * (ABNORMAL) COMPREHENSIVE METABOLIC PANEL (12/16/2021 2:20 PM CDT) GLUCOSE 141(H) 70 - 99 MG/DL 12/16/2021 2:53 PM CDT [facility] BUN 15 7 - 18 MG/DL 12/16/2021 2:53 PM CDT [facility] CREATININE S/P/B 1.00 0.55 - 1.02 MG/DL 12/16/2021 2:53 PM CDT [facility] SODIUM S/P/B 137 136 - 145 MMOL/L 12/16/2021 2:53 PM CDT [facility] POTASSIUM S/P/B 3.3(L) 3.5 - 5.1 MMOL/L 12/16/2021 2:53 PM CDT [facility] CHLORIDE S/P/B 104 100 - 108 MMOL/L 12/16/2021 2:53 PM CDT [facility] CO2 28.5 21 - 32 MMOL/L 12/16/2021 2:53 PM CDT [facility] CALCIUM S/P/B 9.8 8.5 - 10.1 MG/DL 12/16/2021 2:53 PM CDT [facility] BILIRUBIN TOTAL S/P/B 0.4 0.2 - 1.2 MG/DL 12/16/2021 2:53 PM CDT [facility] Comment: THIS ASSAY IS NOT RECOMMENDED FOR PATIENTS UNDERGOING TREATMENT WITH ELTROMBOPAG DUE TO THE POTENTIAL FOR FALSELY ELEVATED RESULTS. TOTAL PROTEIN S/P/B 9.8(H) 6.4 - 8.2 G/DL 12/16/2021 2:53 PM CDT [facility] ALBUMIN S/P/B 3.6 3.4 - 5.0 G/DL 12/16/2021 2:53 PM CDT [facility] AST 17 15 - 37 U/L 12/16/2021 2:53 PM CDT [facility] ALT 23 14 - 55 U/L 12/16/2021 2:53 PM CDT [facility] ALKALINE PHOSPHATASE S/P/B 146(H) 50 - 136 U/L 12/16/2021 2:53 PM CDT [facility] ANION GAP 4.5(L) 5 - 15 MMOL/L 12/16/2021 2:53 PM CDT [facility] BUN CREATININE RATIO 15.0 6 - 26 12/16/2021 2:53 PM CDT [facility] A/G RATIO 0.6(L) 1.0 - 2.0 RATIO 12/16/2021 2:53 PM CDT [facility] GFR ESTIMATE 69(L) >90 ML/MIN/1.7 3 M2 12/16/2021 2:53 PM CDT [facility] Comment: NOTE: eGFR is not calculated for patients <18 years of age. This is an estimated GFR calculation using the new CKD EPI creatinine equation without race and so does not require a correction factor for race. This estimated GFR should not be used for calculating drug doses. 12/16/2021 2:20 PM CDT us Desiree Mackenzie MD LABORATORY Final Re sult [facility] [address] [place] [address], [place] [phone] * (ABNORMAL) CBC W/DIFF AUTOMATED (12/16/2021 2:20 PM CDT) WBC 12.1(H) 4.5 - 11.0 x10'3/uL 12/16/2021 2:34 PM CDT [facility] RBC 4.37 4.20 - 5.40 x10'6/uL 12/16/2021 2:34 PM CDT [facility] HGB 13.3 12.0 - 16.0 G/DL 12/16/2021 2:34 PM CDT [facility] HCT 39.7 38.0 - 48.0 % 12/16/2021 2:34 PM CDT [facility] MCV 90.8 81.0 - 99.0 FL 12/16/2021 2:34 PM CDT [facility] MCH 30.4 27.0 - 31.0 PG 12/16/2021 2:34 PM CDT [facility] MCHC 33.5 32.0 - 36.0 G/DL 12/16/2021 2:34 PM CDT [facility] RDW 12.8 11.5 - 14.5 % 12/16/2021 2:34 PM CDT [facility] PLT 326 130 - 400 x10'3/uL 12/16/2021 2:34 PM CDT [facility] MPV 10.9 9.3 - 12.2 FL 12/16/2021 2:34 PM CDT [facility] DIFFERENTIAL TYPE AUTOMATED DIFFERENTIAL 12/16/2021 2:34 PM CDT [facility] NEUTROPHILS % 65.6 % 12/16/2021 2:34 PM CDT [facility] LYMPHOCYTES % 29.9 % 12/16/2021 2:34 PM CDT [facility] MONOCYTES % 3.1 % 12/16/2021 2:34 PM CDT [facility] EOSINOPHILS 0.7 % 12/16/2021 2:34 PM CDT [facility] BASOPHILS 0.4 % 12/16/2021 2:34 PM CDT [facility] IMMATURE GRANS % 0.3 % 12/17/19 2:34 PM CDT [facility] ABS. NEUTROPHILS TOTAL 7.90(H) 1.80 - 7.70 x10'3/uL 12/16/2021 2:34 PM CDT [facility] ABS. LYMPHOCYTES 3.61 1.00 - 4.80 x10'3/uL 12/16/2021 2:34 PM CDT [facility] ABS. MONOCYTES 0.37 0.24 - 0.86 x10'3/uL 12/16/2021 2:34 PM CDT [facility] ABS. EOSINOPHILS 0.09 0.04 - 0.36 x10'3/uL 12/16/2021 2:34 PM CDT [facility] ABS. BASOPHILS 0.05 0.01 - 0.08 x10'3/uL 12/16/2021 2:34 PM CDT [facility] ABS. IMMATURE GRANULOCYTES 0.04 0.00 - 0.49 x10'3/uL 12/16/2021 2:34 PM CDT [facility] 12/16/2021 2:20 PM CDT Desiree Mackenzie MD LABORATORY Final Re sult [facility] [address] [place] [address], [place] [phone] * PROCALCITONIN (PCT) (12/16/2021 2:07 PM CDT) Procalcitonin <0.05 <0.5 NG/ML 12/16/2021 3:33 PM CDT [facility] 12/16/2021 2:07 PM CDT Desiree Mackenzie MD LABORATORY Final Re sult [facility] [address] [place] [address], [place] [phone] documented in this encounter Visit Diagnoses Not on filedocumented in this encounter Admitting Diagnoses Diagnosis Diabetic foot infection ([facility]/HCC [facility]/HCC) Type II or unspecified type diabetes mellitus [...] 1200, Until Discontinued Given 12/26/2021 8:11 AM [employer] 1 capsule Given 12/25/2021 8:57 PM [employer] 1 capsule Given 12/25/2021 1:29 PM [employer] 1 capsule amLODIPine (NORVASC) tablet 10 mg 10 mg, Oral, Nightly, First dose on Sun12/16/21 at 2100, Until Discontinued, Hold for SBP<110 Given 12/25/2021 8:57 PM [employer] 10 mg Given 12/24/2021 8:01 PM CDT 10 mg Given 12/23/2021 8:00 PM CDT 10 mg atorvastatin (LIPITOR) tablet 20 mg 20 mg, Oral, Daily, First dose on Sun12/16/21 at 1815, Until Discontinued Given 12/26/2021 8:11 AM [employer] 20 mg Given 12/25/2021 9:18 AM [employer] 20 mg Given 12/24/2021 9:19 AM CDT 20 mg bisacodyl (DULCOLAX) suppository 10 mg 10 mg, Rectal, Daily as needed, Constipation, Starting on Sun12/16/21 at 2027, Until Sun12/26/21 at 1812, If unable to tolerate PO bisacodyl EC (DULCOLAX) tablet 5 mg 5 mg, Oral, Daily as needed, Constipation, Starting on Sun12/16/21 at 2027, Until Sun12/26/21 at 1812, Do not break, chew, or crush. BUpivacaine (PF) (MARCAINE) 4.5 mL, lidocaine (XYLOCAINE) 2 % 4.5 mL solution As needed, Starting on Sun12/22/21 at 0710, Until Sun12/22/21 at 0729, Intra-Op Given 12/22/2021 7:10 AM CDT Operative Site ceFEPIme (MAXIPIME) 2 g in sodium chloride 0.9 % 100 mL IVPB 2 g, Intravenous, Administer over 30 Minutes, Every 8 hours, 128 doses, First dose (after last reorder) on Viky 12/22/21 at 1100, Last dose on [facility] 02/02/22 at 1900, Renally adjusted per protocol New Bag 12/26/2021 11:39 AM [employer] 2 g 200 mL/hr New Bag 12/26/2021 2:52 AM [employer] 2 g 200 mL/hr New Bag 12/25/2021 9:00 PM [employer] 2 g 200 mL/hr cetirizine (ZyrTEC) tablet 10 mg 10 mg, Oral, Daily, First dose on [facility] 12/24/21 at 1315, Until Discontinued Given 12/26/2021 8:11 AM [employer] 10 mg Given 12/25/2021 9:18 AM [employer] 10 mg Given 12/24/2021 1:40 PM CDT [...] mL/hr, Every 24 hours, First dose on [facility] 12/24/21 at 1200, Until Discontinued New Bag 12/26/2021 11:39 AM [employer] 450 mg 200 mL/hr New Bag 12/25/2021 2:08 PM [employer] 450 mg 200 mL/hr New Bag 12/24/2021 [...] daily, First dose (after last modification) on Sun12/17/21 at 2100, Until Discontinued Given 12/26/2021 8:11 AM [employer] 100 mg Given 12/25/2021 9:19 AM [employer] 100 mg Given 12/24/2021 8:30 PM CDT 100 mg fluticasone propionate (FLONASE) 50 MCG/ACT nasal spray 1 spray 1 spray, Each Nostril, Daily, First dose on Sun12/24/21 at 1315, Until Discontinued Given 12/26/2021 8:10 AM [employer] 1 sp ray Given 12/25/2021 6:37 AM [employer] 1 spray Given 12/24/2021 2:16 PM CDT [...] 2100, Until Discontinued Given 12/26/2021 8:10 AM [employer] 5,000 Units Left Lower Abdomen Given 12/25/2021 8:57 PM [employer] 5,000 Units L eft Lower Abdomen Given 12/25/2021 9:18 AM [employer] 5,000 Units R ight Lower Abdomen heparin lock flush 10 UNIT/ML injection 3 mL 3 mL, Intracatheter, Every 24 hours, First dose on [facility] 12/22/21 at 2015, Until Discontinued Given 12/25/2021 8:56 PM [employer] 3 mLs Given 12/24/2021 8:03 PM CDT 3 mLs Given 12/23/2021 8:12 PM CDT 3 mLs heparin lock flush 10 UNIT/ML injection 3 mL 3 mL, Intracatheter, As needed, Line care, Starting on [facility] 12/22/21 at 1951, Until 12/26/21 at 1812, After each use Given 12/25/2021 4:16 AM [employer] 3 mLs HYDROcodone-acetaminophen (NORCO) 5-325 MG tablet 1 tablet 1 tablet, Oral, Every 6 hours PRN, Moderate pain (Scale 4 - 7), Starting on Sun12/20/21 at 1113, Until 12/26/21 at 1812, Maximum dose of acetaminophen is 4000 mg from all sources in 24 hours. Given 12/25/2021 10:41 PM [employer] 1 tab let Given 12/25/2021 12:13 AM CDT 1 tablet Given 12/24/2021 6:09 PM CDT 1 tablet hydrOXYzine (VISTARIL) capsule 25 mg 25 mg, Oral, Nightly at bedtime, First dose on Sun12/16/21 at 2100, Until Discontinued Given 12/25/2021 8:57 PM [employer] 25 mg Given 12/24/2021 8:01 PM CDT 25 mg Given 12/23/2021 7:59 PM CDT 25 mg insulin aspart protamine-insulin aspart (NOVOLOG 70/30) injection 55 Units 55 Units, Subcutaneous, Daily with supper, First dose on 12/24/21 at 1700, Until Discontinued Given 12/25/2021 5:43 PM [employer] 55 Units Left Arm Given 12/24/2021 6:09 PM CDT 55 Units Le ft Arm insulin aspart protamine-insulin aspart (NOVOLOG 70/30) injection 65 Units 65 Units, Subcutaneous, Daily with breakfast, First dose on 12/24/21 at 0830, Until Discontinued Given 12/26/2021 8:10 AM [employer] 65 Units Right Arm Given 12/25/2021 9:18 AM [employer] 65 Units Le ft Arm Given 12/24/2021 10:20 AM CDT 65 Units L eft Arm insulin lispro (HUMALOG) injection 0-16 Units [...] and Call Physician] Given 12/26/2021 1:25 PM [employer] 2 Units Right Lower Abdomen Given 12/25/2021 5:44 PM [employer] 10 Units Le ft Arm Given 12/25/2021 1:29 PM [employer] 4 Units Ri ght Arm insulin lispro [...] and Call Physician] Given 12/25/2021 8:56 PM [employer] 2 Units Left Lower Abdomen Given 12/24/2021 10:16 PM CDT 3 Units L eft Arm Given 12/23/2021 8:10 PM CDT 4 Units Ri ght Arm linaCLOtide (LINZESS) capsule 145 mcg 145 [...] medication stored in patient specific bin in [place]. Please send home with patient upon discharge from hospital. Given 12/26/2021 6:24 AM [employer] 145 mcg Given 12/25/2021 6:35 AM [employer] 145 mcg Given 12/23/2021 6:23 AM CDT 145 mcg morphine injection 1 mg 1 mg, Intravenous, Every 3 hours PRN, Severe pain (Scale 8 - 10), Moderate pain (Scale 4 - 7), Starting on Sun12/16/21 at 1756, Until Sun12/26/21 at 181 Given 12/23/2021 4:59 AM CDT 1 mg Given 12/22/2021 8:17 PM CDT 1 mg Given 12/22/2021 4:35 PM CDT 1 mg naLOXone (NARCAN) injection 0.4 mg 0.4 mg, Intravenous, As needed, Opioid reversal, Starting on Sun12/16/21 at 1756, Until Sun12/26/21 at 1812 normal saline 0.9 % flush 10 mL 10 mL, Intracatheter, As needed, Line care, Prior to blood draws (except blood cultures), Starting on Viky 12/22/21 at 1951, Until Sun12/26/21 at 181 Given 12/24/2021 8:04 PM CDT 10 mLs normal saline 0.9 % flush 20 mL 20 mL, Intracatheter, As needed, Line care, After blood draws then administer heparin flush as indicated, Starting on Viky 12/22/21 at 1951, Until Sun12/26/21 at 1812 normal saline 0.9 % flush 5-10 mL 5-10 mL, Intracatheter, Every 24 hours, First dose on Viky 12/22/21 at 2015, Until Discontinued, When not in use Given 12/25/2021 9:00 PM [employer] 5 mLs Given 12/24/2021 8:30 PM CDT 5 mLs Given 12/23/2021 8:15 PM CDT 10 mLs ondansetron (ZOFRAN) injection 4 mg 4 mg, Intravenous, Every 8 hours PRN, Nausea, Starting on 12/25/21 at 1133, Until Sun12/26/21 at 1812, IV push over 2-5 minutes. pantoprazole EC (PROTONIX) tablet 40 mg 40 mg, Oral, Daily, First dose on 12/17/21 at 0900, Until Discontinued, Do not break, chew, or crush. Given 12/26/2021 8:11 AM [employer] 40 mg Given 12/25/2021 9:18 AM [employer] 40 mg Given 12/24/2021 9:20 AM CDT 40 mg Senna (SENOKOT) 8.6 MG tablet 8.6 mg 8.6 mg, Oral, Nightly at bedtime, First dose on 12/17/21 at 2100, Until Discontinued Given 12/23/2021 8:00 PM C DT 8.6 mg Given 12/22/2021 8:06 PM CDT 8.6 mg Given 12/18/2021 8:33 PM CDT 8.6 mg documented in this encounter Active and Recently Administered Medications Due to Daylight Saving Time, this section may contain times in both CDT and [employer]. Scheduled Medication Order 12/24/2021 12/25/2021 12/26/2021 acidophilus (FLORAJEN) capsule 1 capsule 1 capsule, Oral, 2 times daily, First dose on 12/25/21 at 1200, Until Discontinued 1329 (Given - Provider: Kortney Elias RN)2056 (Given - Provider: Carlos Alberto Pacheco RN) 810 (Given - Provider: David Grimes, DEANDRE) amLODIPine [...] 918 (Given - Provider: Kortney Elias RN) 917 (Given - Provider: Kortney Elias RN) 08 (Given - Provider: David Grimes RN) ceFEPIme (MAXIPIME) 2 g in sodium chloride 0.9 % 100 mL IVPB 2 g, Intravenous, Administer over 30 Minutes, Every 8 hours, 128 doses, First dose (after last reorder) on Viky 11/3/22 at 1100, Last dose on Viky 02/02/22 at 1900, Renally adjusted per protocol 0431 (New Bag - Provider: Merrill Arias RN)0449 (Infusion Stop Time - Provider: Merrill Arias RN)1415 (New Bag - Provider: Kortney Elias RN)1446 (Infusion Stop Time - Provider: Kortney Elias RN)1958 (New Bag - Provider: Isabelle Sprague RN)2028 (Infusion Stop Time - Provider: Isabelle Sprague RN) 0332 (New Bag - Provider: Isabelle Sprague, DEANDRE)0416 (Infusion Stop Time - Provider: Isabelle Sprague RN)1329 (New Bag - Provider: Kortney Elias RN)1359 (Infusion Stop Time - Provider: Kortney Elias RN)2100 (New Bag - Provider: Carlos Alberto Pacheco RN)2130 (Infusion Stop Time - Provider: Carlos Alberto Pacheco RN) 0252 (New Bag - Provider: Carlos Alberto Pacheco RN)0253 (Infusion Stop Time - Provider: Carlos Alberto Pacheco RN)1139 (New Bag - Provider: David Grimes RN)1220 (Infusion Stop Time - Provider: David Grimes RN) cetirizine (ZyrTEC) tablet 10 mg 10 mg, Oral, Daily, First dose on 12/24/21 at 1315, Until Discontinued 1340 (Given - Provider: Kortney Elias RN) 0918 (Given - Provider: Kortney Elias, DEANDRE) 0811 (Given - Provider: David Grimes, DEANDRE) DAPTOmycin (CUBICIN) 450 mg in sodium chloride [...] Until Discontinued 0923 (Not Given - Provider: Korteny Elias RN - Reason: Patient/family declined)2029 (Given - Provider: Isabelle Sprague, DEANDRE) 09 (Given - Provider: Kortney Elias RN)2100 (Not Given - Provider: Carlos Alberto Pacheco RN - Reason: Patient/family declined) 08 (Given - Provider: David Grimes, DEANDRE) fluticasone propionate (FLONASE) 50 MCG/ACT nasal spray 1 spray 1 spray, Each Nostril, Daily, First dose on 12/24/21 at 1315, Until Discontinued 141 (Given - Provider: Kortney Elias RN) 0637 (Given - Provider: Isabelle Sprague RN) 0810 (Given - Provider: David Grimes RN) heparin (porcine) injection 5,000 Units(Linked Group 1) 5,000 Units, Subcutaneous, Every 12 hours scheduled (2 times per day), First dose on Sun12/16/21 at 2100, Until Discontinued 919 (Given - Provider: Kortney Elias RN)2000 (Given - Provider: Isabelle Sprague, DEANDRE) 917 (Given - Provider: Kortney Elias RN)2056 (Given - Provider: Carlos Alberto Pacheco, DEANDRE) 08 (Given - Provider: David Grimes RN) heparin lock flush 10 UNIT/ML injection 3 mL(Linked Group 2) 3 mL, Intracatheter, Every 24 hours, First dose on Viky 12/22/21 at 2015, Until Discontinued 2002 (Given - Provider: Isabelle Sprague RN) 2055 (Given - Provider: Carlos Alberto Pacheco, DEANDRE) hydrOXYzine (VISTARIL) capsule 25 mg 25 mg, Oral, Nightly at bedtime, First dose on Sun12/16/21 at 2100, Until Discontinued 2000 (Given - Provider: Isabelle Sprague, DEANDRE) 2056 (Given - Provider: Carlos Alberto Pacheco, DEANDRE) insulin aspart protamine-insulin aspart (NOVOLOG 70/30) injection 55 Units(Linked Group 3) 55 Units, Subcutaneous, Daily with supper, First dose on Sun12/24/21 at 1700, Until Discontinued 1808 (Given - Provider: Kortney Elias, DEANDRE) 174 (Given - Provider: Kortney Elias, DEANDRE) 1700 (Canceled Entry - Provider: Automatic Discharge Provider - Comment: Automatically canceled at discontinue of medication order) insulin aspart protamine-insulin aspart (NOVOLOG 70/30) injection 65 Units(Linked Group 3) 65 Units, Subcutaneous, Daily with breakfast, First dose on Sun12/24/21 at 0830, Until Discontinued 102 (Given - Provider: Kortney Elias RN) 0918 (Given - Provider: Kortney Elias, DEANDRE) 0810 (Given - Provider: David Grimes RN) insulin lispro (HUMALOG) injection 0-16 Units(Linked Group [...] Provider: Kortney Elias RN)1810 (Given - Provider: Kortnye M Biebel, RN) 0637 (Not Given - Provider: Isabelle Sprague RN - Reason: Order parameters not met)1329 (Given - Provider: Kortney Elias RN)1744 (Given - Provider: Kortney Elias RN) 0754 (Not Given - Provider: David Grimes RN - Reason: Order parameters not met)1325 (Given - Provider: David Grimes, DEANDRE)1600 (Canceled Entry - Provider: Automatic Discharge [...] than 400:? 8 units and Call Physician] 2215 (Given - Provider: Isabelle Sprague RN) 2055 (Given - Provider: Carlos Alberto Pacheco RN) linaCLOtide (LINZESS) capsule 145 mcg 145 [...] medication stored in patient specific bin in [place]. Please send home with patient upon discharge from hospital. 0629 (Not Given - Provider: Merrill Arias RN - Reason: Patient/family declined) 0635 (Given - Provider: Isabelle Sprague RN) 0624 (Given - Provider: Carlos Alberto Pacheco RN) metroNIDAZOLE (FLAGYL) tablet 500 mg (COMPLETED) 500 mg, Oral, Every 8 hours scheduled (3 times per day), 5 doses, First dose on 12/24/21 at 1400, Last dose on 12/25/21 at 2200 1340 (Given - Provider: Kortney Elias RN)2216 (Given - Provider: Isabelle Spargue, DEANDRE) 0635 (Given - Provider: Isabelle Sprague, DEANDRE)1745 (Given - Provider: Kortney Elias RN)2056 (Given - Provider: Carlos Alberto Pacheco, DEANDRE) normal saline 0.9 % flush 5-10 mL(Linked Group 2) 5-10 mL, Intracatheter, Every 24 hours, First dose on Viky 12/22/21 at 2015, Until Discontinued, When not in use 2029 (Given - Provider: Isabelle Sprague RN) 2100 [...] dose on 12/17/21 at 2100, Until Discontinued 1999 (Not Given - Provider: Isabelle Sprague RN - Reason: Patient/family declined) 2100 (Not Given - Provider: Carlos Alberto Pacheco RN - Reason: Patient/family declined) PRN Medication Order 12/24/2021 12/25/2021 12/26/2021 acetaminophen (TYLENOL) tablet 650 mg 650 mg, Oral, Every 4 hours PRN, Mild pain (Scale 1 - 3), Starting on Sun12/20/21 at 1113, Until 12/26/21 at 1812, Maximum dose of acetaminophen is 4000 mg from all sources in 24 hours. bisacodyl (DULCOLAX) suppository 10 mg 10 mg, Rectal, Daily as needed, Constipation, Starting on Sun12/16/21 at 2028, Until Sun12/26/21 at 1812, If unable to tolerate PO bisacodyl EC (DULCOLAX) tablet 5 mg 5 mg, Oral, Daily as needed, Constipation, Starting on Sun12/16/21 at 2028, Until Sun12/26/21 at 1812, Do not break, chew, or crush. cyclobenzaprine [...] needed, Line care, Starting on Sun12/22/21 at 1951, Until Sun12/26/21 at 1812, After each use 0416 (Given - Provider: Isabelle Sprague, DEANDRE) HYDROcodone-acetaminophen (NORCO) 5-325 MG tablet 1 tablet 1 tablet, Oral, Every 6 hours PRN, Moderate pain (Scale 4 - 7), Starting on Sun12/20/21 at 1113, Until Sun12/26/21 at 1812, Maximum dose of acetaminophen is 4000 mg from all sources in 24 hours. 1809 (Given - Provider: Kortney Elias, DEANDRE) 0013 (Given - Provider: Isabelle Sprague RN)2241 [...] Sun12/22/21 at 1951, Until Sun12/26/21 at 1812 2003 (Given - Provider: Isabelle Sprague RN) normal saline 0.9 % flush 20 mL(Linked Group 2) 20 mL, Intracatheter, As needed, Line care, After blood draws then administer heparin flush as indicated, Starting on Sun12/22/21 at 1951, Until Sun12/26/21 at 1812 ondansetron (ZOFRAN) injection 4 mg (CANCELED) 4 mg, Intravenous, Every 8 hours PRN, Nausea, Starting on Sun12/20/21 at 2019, Until Sun12/25/21 at 2014, IV push over 2-5 minutes. 1030 (Given - Provider: Kortney Elias RN) ondansetron (ZOFRAN) injection 4 mg 4 mg, Intravenous, Every 8 hours PRN, Nausea, Starting on Sun12/25/21 at 1133, Until Sun12/26/21 at 181, IV push over 2-5 minutes. Linked Groups [...] on Sun12/22/21 at 195, Until Sun12/26/21 at 181 And normal saline 0.9 % flush 20 mLJump to med 20 mL, Intracatheter, As needed, Line care, After blood draws then administer heparin flush as indicated, Starting on Sun12/22/21 at 195, Until Sun12/26/21 at 181 And heparin lock flush 10 UNIT/ML injection [...] with Chlorhexidine Gluconate, then daily. Refer to [employer] for specific bathing instructions. Group 3: insulin [...] Depression Total Score: 0 03/08/19 9:30 AM [employer] documented as of this encounter Care Teams Night Coordinator Relationship Specialty Start Date End Date Yasmin Segura II, MD [address] [place], [place] [id number] PCP - General FAMILY PRACTICE 03/09/21 documented as of this encounter
--- OUTSIDE RECORDS SUMMARY | 2024-03-02 22:28 | XMS_ITS | Encounter Summary ---
Author Organization [facility] Address [address] [place] [address]. [place] [address] [place] [address] Care Team Providers Care Senior Credit Analyst Name Role Phone Colton SILVEIRA MD, Abiodun Rushing Primary Care Provider Reason for Visit * Reason Onset Date Comments Other 10/28/2021 Encounter Details Date Type Department Care Team (Late st Contact Info) Description 10/28/2021 Telephone [facility] Family Medicine [place] [address] [place] [address] Abiodun Segura II, MD [address] [place] [address] Other Social History Tobacco Use Types Packs/Day Years [...] Progress Notes * Sydney Cobos MA - 10/28/2021 9:42 AM CDT Spoke with patient to get more details about her symptoms and she said she is urinating frequently and has burning and pressure * Isabelle Steele - 10/28/2021 9:17 AM CDT Pt has uti She pretty sure, wants a script called in , Pharmacy [facility] , call k pt and let her know if this can be done documented in this encounter Plan of Treatment Upcoming Encounters Date Type Department Care Team (Late st Contact Info) Description 03/14/2024 11:45 AM DISTRICT WILDLIFE MANAGER Office Visit [facility] [phone] Marvin Mckeon MD [address] [facility] [address] [place] [address] 03/20/2024 11:30 AM DISTRICT WILDLIFE MANAGER Office Visit [facility] Family Medicine - [place] [address] [place] [phone] Abiodun Segura II, MD [address] [place] [address] documented as of this encounter Visit Diagnoses Not on filedocumented in this encounter Additional Health Concerns Assessment Noted Time PHQ-9 Depression Total Score: 0 03/08/19 9:30 AM DISTRICT WILDLIFE MANAGER documented as of this encounter Care Teams Senior Credit Analyst Relationship Specialty Start Date End Date Abiodun Segura II, MD [address] [place], [place] [phone] PCP - General FAMILY PRACTICE 03/09/21 documented as of this encounter
--- OUTSIDE RECORDS SUMMARY | 2024-03-02 22:28 | XMS_ITS | Encounter Summary ---
Author Organization [facility] Address [address] [place] [address]. [place] [address] [place] [address] Care Team Providers Care Ventilated Rib Fitter Name Role Phone Colton SILVEIRA MD, Yasmin Rushing Primary Care Provider Reason for Visit * Reason Comments Diabetes 3 month f/u Encounter Details Date Type Department Care Team (Late st Contact Info) Description 12/08/2021 2:20 PM CDT Office Visit [facility] Family Medicine - [place] [address] [place] [address] Yasmin Valenzuela II, MD [address] [place] [address] Diabetes (3 month f/u/) Social History Tobacco Use Types Packs/Day Years [...] Sign Reading Time Taken Comments Blood Pressure 107/75 12/08/2021 2:20 PM CDT Pulse 89 12/08/2021 2:20 PM CDT Temperature 36.7 ??C (98.1 ??F) 12/08/2021 2:20 PM CD T Respiratory Rate - - Oxygen Saturation 98% 12/08/2021 2:20 PM CDT Inhaled Oxygen Concentration - - Weight 82.9 kg (182 lb 12.8 oz) 12/08/2021 2:20 PM CDT Height 167.6 cm (5' 6 ) 12/08/2021 2:20 PM CDT Body Mass Index 29.5 12/08/2021 2:20 PM CDT documented in this encounter Functional [...] Notes * Yasmin Valenzuela II, MD - 12/08/2021 2:20 PM CDT Images from the original note were not included. [facility] FAMILY MEDICINE [address] [address] OFFICE FOLLOW UP NOTE Encounter Date: 12/08/2021 Chief Complaint: Diabetes (3 month f/u/) History of Present Illness: 51-year-old female with diabetes, hypertension, dyslipidemia, decreased vision, and Charcot foot who developed pruritic rash on her face which is now extending to her upper chest after starting Januvia here to follow-up on diabetes and treatment recommendation. Patient will be following up with podiatry for her foot next Sunday as she continues to have pain. Her x-rays showed no sign of osteomyelitis. Patient will also follow-up with her [employer] for her vision in the near future. Patient is otherwise been doing well and is tolerating her medications well. Review Of Systems: Positive ROS items as [...] mouth nightly.) 90 tablet 3 ??? cyclobenzaprine 10 MG tablet Take 1 tablet (10 mg total) by mouth 3 (three) times daily as needed. 15 tablet 0 ??? Dulaglutide (TRULICITY) 3 MG/0.5ML [...] in the evening) 40 mL 3 ??? hydroCHLOROthiazide (HYDRODIURIL) 25 MG tablet Take 25 mg by mouth every morning. ??? hydrocortisone (HYTONE) 2.5 % ointment APPLY OINTMENT TOPICALLY TO FACE TWICE DAILY FOR 2 WEEKSTHEN NEEDED ??? hydrOXYzine (ATARAX) 25 MG tablet TAKE 1 TO 2 TABLETS BY MOUTH EVERY DAY AT BEDTIME ??? linaCLOtide 145 MCG capsule Take 1 capsule (145 mcg total) by mouth every morning before breakfast. Take on empty stomach at least 30 minutes prior to the first meal of the day. Swallow whole. Donot open capsule or chew. 30 capsule 5 ??? LISINOPRIL 40 MG tablet Take 1 tablet by mouth once daily 30 tablet 5 ??? nitroglycerin 0.[address] [...] route as needed.) 100 each 5 ??? simvastatin (ZOCOR) 40 MG tablet TAKE 1 TABLET BY MOUTH AT BEDTIME 90 tablet 3 ??? SITagliptin 100 MG tablet Take 1 tablet (100 mg total) by mouth daily. 90 tablet 3 ??? triamcinolone (KENALOG) 0.1 % cream APPLY CREAM TOPICALLY TO BODY TWICE DAILY FOR 2 WEEKS THEN NEEDED (CAN THIN THE SKIN) ? ? lidocaine 4 % patch Place 1 patch onto the skin daily. Remove & Discard patch within 12 hours or as directed by MD Hernandes patch 0 No current facility-administered medications for this visit. Allergies Allergen Reactions ??? Fish Oil Unknown ??? Amoxicillin Rash ??? Penicillins Rash Objective: Filed Vitals: 12/08/21 1420 BP: 107/75 Pulse: 89 Temp: 98.1 ??F (36.7 ??C) TempSrc: Temporal SpO2: 98% Weight: 82.9 kg (182 lb 12.8 oz) Height: 5' 6 (1.676 m) Nursing note reviewed. Physical Exam Vitals and [...] motion and neck supple. No rigidity. Comments: Feet unchanged from previous exams. Skin: General: Skin is warm and dry. Neurological: Mental Status: She is alert and oriented to person, place, and time. Psychiatric: Mood and Affect: Mood normal. Behavior: Behavior normal. Thought Content: Thought content normal. Judgment: Judgment normal. Labs: Results for orders placed or performed in visit on 12/08/21 HEMOGLOBIN, GLYCOSYLATED Result Value Ref Range HGB A1C 7.7 % Counseling The patient and patient's family was counseled regarding instructions for management, patient and family education and importance of compliance with treatment. Assessment: 1. Type 2 diabetes mellitus with diabetic neuropathic arthropathy, with long- term current use of insulin ([facility]) HEMOGLOBIN, GLYCOSYLATED COLLECT.CAPILLARY (FNGR,HEEL,EAR) 2. Drug rash 3. Primary hypertension 4. Charcot foot due to diabetes mellitus ([facility]) 5. Vision decreased Plan: Orders Placed This Encounter Medications ??? hydrocortisone (HYTONE) 2.5 % ointment ??? hydrOXYzine (ATARAX) 25 MG tablet ??? triamcinolone (KENALOG) 0.1 % cream 1. Type 2 diabetes mellitus with diabetic neuropathic arthropathy, with long- term current use of insulin ([facility]) As Januvia may be causing her rash we will discontinue Januvia and increase her Humalog to 65 unitsin the morning and 60 units at night. Patient will continue Trulicity 3 mg weekly for now. Patient will call me in 1 week to let me know if her rash improves. If it does we will increase her Trulicity to 4 mg/week to substitute for the loss of Januvia. Patient will follow-up with me in 3 months forrecheck of hemoglobin A1c. - HEMOGLOBIN, GLYCOSYLATED - COLLECT.CAPILLARY (FNGR,HEEL,EAR) 2. Drug rash We will discontinue Januvia for 1 week to see if this helps improve her rash. If discontinuing Januvia does not improve her rash patient will follow-up with dermatology for further recommendations. 3. Primary hypertension Patient's blood pressure is at goal. We will continue amlodipine 10 mg daily and lisinopril 40 mg daily. 4. Charcot foot due to diabetes mellitus ([facility]) Patient's pain is worsening. She will follow-up with podiatry as scheduled for additional treatmentrecommendations. 5. Vision decreased Patient's vision is stable at this time. She will follow-up with ophthalmology for ongoing monitoring and treatment of her retinopathy. There are no discontinued medications. YASMIN VALENZUELA MD 12/08/2021 Portions of this note were dictated using [employer] speech recognition software. Occasional wrong wordor sound-alike substitutions may have occurred due to the inherent limitations of voice recognition software. Please read the chart carefully and recognize, using context, where the substitutions may have occurred. documented in this encounter Plan of Treatment Upcoming Encounters Date Type Department Care Team (Late st Contact Info) Description 03/14/2024 11:45 AM BODYWORK THERAPIST Office Visit [facility] [phone] Marvin Mckeon MD [address] [place] [address] 03/20/2024 11:30 AM BODYWORK THERAPIST Office Visit [facility] Family Medicine - [place] [phone] Yasmin Valenzuela II, MD [address] [place] [id number] documented as of this encounter Procedures Procedure Name Priority Date/Time Associated Diagnosis Comments COLLECT.CAPILLARY (FNGR,HEEL,EAR) Routine 12/08/2021 2:34 PM CDT Type 2 diabetes mellitus with diabetic neuropathic arthropathy, with long-term current use of insulin ([facility]) documented in this encounter Visit Diagnoses Diagnosis Type 2 diabetes mellitus with diabetic neuropathic arthropathy, with long-term current use of insulin ([facility])- Primary Drug rash Dermatitis due to drugs and medicines taken internally Primary hypertension Unspecified essential hypertension Charcot foot due to diabetes mellitus ([facility]) Type II or unspecified type diabetes mellitus with neurological manifestations, not stated as uncontrolled Vision decreased Unspecified visual loss documented in this encounter Additional Health Concerns Assessment Noted Time PHQ-9 Depression Total Score: 0 03/08/19 9:30 AM BODYWORK THERAPIST documented as of this encounter Care Teams Ventilated Rib Fitter Relationship Specialty Start Date End Date Yasmin Valenzuela II, MD [address] [place] [id number] PCP - General FAMILY PRACTICE 03/09/21 documented as of this encounter
--- OUTSIDE RECORDS SUMMARY | 2024-03-02 22:28 | XMS_ITS | Encounter Summary ---
Author Organization [facility] Address [address] [place] [address]. [place] [address] [place] [address] Care Team Providers Care Customer Success Intern Name Role Phone Colton SILVEIRA MD, Yasmin Rushing Primary Care Provider Reason for Visit * Reason Comments Follow Up Diabetes and A1C [place] ck Encounter Details Date Type Department Care Team (Late st Contact Info) Description 09/07/2021 10:20 AM CDT Office Visit [facility] Family Medicine - [place] [address] [place] [address] Yasmin Valenzuela II, MD [address] [place] [address] Follow Up (Diabetes and A1C check) Social History Tobacco Use [...] Sign Reading Time Taken Comments Blood Pressure 137/89 09/07/2021 10:27 AM CDT Pulse 91 09/07/2021 10:27 AM CDT Temperature 36.6 ??C (97.8 ??F) 09/07/2021 10:27 AM C DT Respiratory Rate - - Oxygen Saturation 100% 09/07/2021 10:27 AM CDT Inhaled Oxygen Concentration - - Weight 83 kg (183 lb) 09/07/2021 10:27 AM CDT Height - - Body Mass Index 29.54 08/17/2021 2:26 PM CDT documented in this encounter Functional [...] Status Yes 07/09/2021 11:35 PM CDT Servando uSng RN Active * Do you have difficulty [...] Notes * Yasmin Valenzuela II, MD - 09/07/2021 10:20 AM CDT Images from the original note were not included. [facility] FAMILY MEDICINE [address] [address] OFFICE FOLLOW UP NOTE Encounter Date: 09/07/2021 Chief Complaint: Follow Up (Diabetes and A1C check) History of Present Illness: 51-year-old female with history of diabetes, hypertension, decreased vision, Charcot foot, chronic low back pain here for hemoglobin A1c and blood pressure check. Patient reports that she is doing well except for her chronic aches and pains. Patient does report that her [id number] vitamin B12and women's once a day seems to be helping with her fatigue. Review Of Systems: Positive ROS [...] mouth nightly.) 90 tablet 3 ??? atorvastatin (LIPITOR) 40 MG tablet Take 40 mg by mouth nightly at bedtime. ??? cyclobenzaprine 10 MG tablet Take 1 [...] Take 25 mg by mouth every morning. ? ? lidocaine 4 % patch Place 1 patch onto the skin daily. Remove & Discard patch within 12 hours or as directed by MD Hernandes patch 0 ??? linaCLOtide 145 MCG capsule Take 1 capsule (145 mcg total) by mouth every morning before breakfast. Take on empty stomach at least 30 minutes prior to the first meal of the day. Swallow whole. Donot open capsule or chew. 30 capsule 5 ??? LISINOPRIL 40 MG tablet Take 1 tablet by mouth once daily 30 tablet 5 ??? omeprazole 40 MG capsule Take 1 [...] by mouth daily. 90 tablet 3 ??? nitroglycerin 0.[address] 0.4 mg under the tongue every 5 (five) minutes as needed. FOR CHEST PAIN DO NOT EXCEED A TOTAL OF 3 DOSES IN 15 MINUTES No current facility-administered medications for this visit. Allergies Allergen Reactions ??? Fish Oil Unknown ??? Amoxicillin Rash ??? Penicillins Rash Objective: Filed Vitals: 09/07/21 1027 BP: 137/89 Pulse: 91 Temp: 97.8 ??F (36.6 ??C) TempSrc: Temporal SpO2: 100% Weight: 83 kg (183 lb) Nursing note reviewed. Physical Exam Vitals [...] motion and neck supple. No rigidity. Comments: Unchanged from previous exams. Skin: General: Skin is warm and dry. Neurological: Mental Status: She is alert and oriented to person, place, and time. Psychiatric: Mood and Affect: Mood normal. Behavior: Behavior normal. Thought Content: Thought content normal. Judgment: Judgment normal. Labs: Results for orders placed or performed in visit on 09/07/21 A1C (BACK OFFICE) Result Value Ref Range HGB A1C 7.3 % Counseling The patient and patient's family was counseled regarding instructions for management, patient and family education and importance of compliance with treatment. Assessment: 1. Type 2 diabetes mellitus with diabetic neuropathic arthropathy, with long- term current use of insulin ([facility]) A1C (BACK OFFICE) 2. Primary hypertension 3. Vision decreased 4. Chronic bilateral low back pain without sciatica 5. Charcot foot due to diabetes mellitus (CMS/HCC) Plan: No orders of the defined types were placed in this encounter. 1. Type 2 diabetes mellitus with diabetic neuropathic arthropathy, with long- term current use of insulin (CMS/[facility]) Patient's hemoglobin A1c is at goal. We will plan to have patient follow-up in clinic in 3 months for A1c recheck and we will order annual labs for 3 months after that date. Patient will continue hercurrent regiment. - A1C (BACK OFFICE) 2. Primary hypertension Patient's blood pressure is near goal. Patient will continue her current medications at current doses. 3. Vision decreased Patient will continue to follow-up with optometry as scheduled. Patient reports that her last exam showed no progression in her retinopathy. 4. Chronic bilateral low back pain without sciatica Patient to continue to remain as active as possible and may use Flexeril as needed for muscle spasms. 5. Charcot foot due to diabetes mellitus (CMS/HCC) Patient continues to follow with podiatry and remains as active as possible improve her diabetic control and maintain the function that she has. There are no discontinued medications. YASMIN VALENZUELA MD 09/07/2021 Portions of this note were dictated using weipass speech recognition software. Occasional wrong wordor sound-alike substitutions may have occurred due to the inherent limitations of voice recognition software. Please read the chart carefully and recognize, using context, where the substitutions may have occurred. documented in this encounter Plan of Treatment Upcoming Encounters Date Type Department Care Team (Late st Contact Info) Description 03/14/2024 11:45 AM POWER TONG OPERATOR Office Visit [facility] [address] Marvin Mckeon MD [address] [facility] [address] [place], [place] [id number] 03/20/2024 11:30 AM POWER TONG OPERATOR Office Visit [facility] Family [facility] - [place] [address] [place] [id number] Yasmin Valenzuela II, MD [address] [place], [place] [id number] documented as of this encounter Procedures Procedure Name Priority Date/Time Associated Diagnosis Comments HEMOGLOBIN, GLYCOSYLATED Routine 09/07/2021 Type 2 diabetes mellitus with diabetic neuropathic arthropathy, with long-term current use of insulin ([facility]) documented in this encounter Results * A1C (BACK OFFICE) (09/07/2021) HGB A1C 7.3 % [facility] [facility] 09/07/2021 Yasmin Valenzuela II, MD LABORATORY Final R esult [facility] [address] [place] [address], [place] [phone] documented in this encounter Visit Diagnoses Diagnosis Type 2 diabetes mellitus with diabetic neuropathic arthropathy, with long-term current use of insulin ([facility])- Primary Primary hypertension Unspecified essential hypertension Vision decreased Unspecified visual loss Chronic bilateral low back pain without sciatica Charcot foot due to diabetes mellitus ([facility] HHS/HCC) Type II or unspecified type diabetes mellitus with neurological manifestations, not stated as uncontrolled documented in this encounter Additional Health Concerns Assessment Noted Time PHQ-9 Depression Total Score: 0 03/08/19 22 9:30 AM POWER TONG OPERATOR documented as of this encounter Care Teams Customer Success Intern Relationship Specialty Start Date End Date Yasmin Valenzuela II, MD [address] [place] [address] PCP - General FAMILY PRACTICE 03/09/21 documented as of this encounter
--- OUTSIDE RECORDS SUMMARY | 2024-03-02 22:28 | XMS_ITS | Encounter Summary ---
Author Organization [facility] Address [address] [place] [address]. [place], [place] [id number] [place] [id number] Care Team Providers Care Slip Sheeter Name Role Phone Colton SILVEIRA MD, Yasmin Rushing Primary Care Provider Reason for Referral * Procedure (Routine) - Closed Specialty Diagnoses / Procedures Referred By Contac t Referred To Contact Procedures Stress test only, exercise [facility] [place] [address] Phone: tel: fax: Referral ID Status Reason Start Date Expiration Date Visits Re quested Visits Authorized [id number] Closed 07/11/2021 08/11/2022 1 1 * Imaging (Emergency) - Closed Specialty Diagnoses / Procedures Referred By Contxavier t Referred To Contact RADIOLOGY Procedures USE ECHOCARDIOGRAM W CON USE ECHOCARDIOGRAM Eduarda Chester MD 1 [place] [address] Phone: tel: [phone] fax: Referral ID Status Reason Start Date Expiration Date Visits Re quested Visits Authorized [id number] Closed 07/09/2021 08/09/2022 1 1 * Imaging (Urgent) - Closed Specialty Diagnoses / Procedures Referred By Contac t Referred To Contact RADIOLOGY Procedures NM PHARM NUC STRESS TEST 1DAY Eduarda Chester MD 1 [place] [address] Phone: tel: [phone] fax: Referral ID Status Reason Start Date Expiration Date Visits Re quested Visits Authorized [id number] Closed 07/09/2021 08/09/2022 1 1 * Imaging (Urgent) - Closed Specialty Diagnoses / Procedures Referred By Contac t Referred To Contact RADIOLOGY Procedures USV JOANIE DUPLEX LOW EXT NOHEMY Eduarda Chester MD [address] [place] [address] Phone: tel: [phone] fax: Referral ID Status Reason Start Date Expiration Date Visits Re quested Visits Authorized [id number] Closed 07/09/2021 08/09/2022 1 1 * Imaging (Urgent) - Closed Specialty Diagnoses / Procedures Referred By Contac t Referred To Contact RADIOLOGY Procedures CTA CHEST Eduarda Chester MD [address] [place] [address] Phone: tel: [phone] fax: Referral ID Status Reason Start Date Expiration Date Visits Re quested Visits Authorized [id number] Closed 07/09/2021 08/09/2022 1 1 Reason for Visit * Reason Comments Chest Pain * Auth/Cert Specialty Diagnoses / Procedures Referred By Contac t Referred To Contact Diagnoses Chest pain Chest pain Procedures GENERAL Referral ID Status Reason Start Date Expiration Date Visits Re quested Visits Authorized [id number] 1 1 Encounter Details Date Type Department Care Team (Late st Contact Info) Description 07/09/2021 3:11 PM CDT - 07/11/2021 1:43 PM CDT Emergency [facility] [place] [address] Janneth Perrin PA [address] [place] [address] Eduarda Chester MD 1 [place] [address] [phone] (Work) Chest Pain Discharge Disposition: Home or Self Care [...] Sign Reading Time Taken Comments Blood Pressure 134/82 07/11/2021 11:12 AM CDT Pulse 88 07/11/2021 11:12 AM CDT Temperature 36.6 ??C (97.9 ??F) 07/11/2021 11:12 AM C DT Respiratory Rate 15 07/11/2021 11:12 AM CDT Oxygen Saturation 100% 07/11/2021 11:12 AM CDT Inhaled Oxygen Concentration - - Weight 84.4 kg (186 lb 1.1 oz) 07/11/2021 3:48 A M CDT Height 167.6 cm (5' 6 ) 07/09/2021 3:13 PM CDT Body Mass Index 30.03 07/09/2021 3:13 PM CDT documented in this encounter Functional Status * Question Answer Date of Assessment Author Status Do you have serious difficulty walking or climbing stairs? Yes 07/09/2021 11:35 PM EMILEET Servando Sugn RN Active * Question Answer Date of Assessment Author Status Do you have difficulty dressing or bathing? No 07/09/2021 11:35 PM CDT Kayleen Sung RN Active Because of a physical, mental, or emotional condition, do you have difficulty doing errands alone such as visiting a doctor's office or shopping? No 07/09/2021 11:35 PM EMILEET Servando Sung RN Active * RETIRED Are you deaf [...] Assessment Author Status Yes 07/09/2021 11:35 PM Servando Hoover RN Active * Do you have difficulty dressing or bathing? Answer Date of Assessment Author Status No 07/09/2021 11:35 PM EMILEET Servando Sung RN Active * Because of a physical, mental, or emotional condition, do you have difficulty doing errands alone such as visiting a doctor's office or shopping? Answer Date of Assessment Author Status No 07/09/2021 11:35 PM Servando Hoover RN Active documented as of this encounter Mental Status * Question Answer Entry Date Author Status Because of a physical, mental, or emotional condition, do you have serious difficulty concentrating, remembering, or making decisions? No 07/09/2021 11:35 PM Servando Hoover RN Active * Because of a physical, mental, or emotional condition, do you have serious difficulty concentrating, remembering, or making decisions? Answer Entry Date Author Status No 07/09/2021 11:35 PM CDT Servando Sung RN Active documented in this encounter Discharge Summaries * Eduarda Chester MD - 07/11/2021 12:52 PM CDT Images from the original note were not included. Hospitalist Discharge Summary Patient ID: Tyson Youngblood. female. 1970. Admit date: 07/09/2021 3:11 PM Discharge date and time: 07/11/21 Admitting Physician: Eduarda Chester MD Attending Physician: Eduarda Chester MD Primary Care Physician: YASMIN SEGURA MD Discharge Physician: Eduarda Chester MD Hospital Diagnosis: Chest pain Admission Condition: fair Discharged Condition: Stable Code Status: Full Code Indication for Admission: Chief Complaint Patient presents with ??? Chest Pain Readmission/Mortality Score at discharge: Low 0-28, Medium 29-58, High >59 LACE+ Score *This score is based on incomplete data Readmission Score: 59* Male Patient: - Urgent Admission: 15 Discharge Institution: - Length of Stay: 3 Alternative Level of Care Status: 0 ED Visits in Previous 6 Months: 0 Elective Admission in Previous Year: 6 Comorbidity Score (by age & number of urgent admissions): 35 - This score is not calculated because of inadequate data HISTORY OF PRESENT ILLNESS: Tyson Youngblood is a 51-year-old female With past medical history significant for Obesity, HTN, hyperlipidemia, history of COVID-19 infection in 2019, 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 She noted that for the past 4 days she has had worsening chest pain on the left side of her chest radiating up to her back shoulder and neck with diaphoresis at times and more on exertion than at rest. She tried taking ibuprofen and muscle relaxers but this did not help with the pain. She states that this has been going off and on for the last 4 days and is relieved with rest. She denies any fever URI or recent illness although she has been recently treated with doxycycline for folliculitis. Earlier today when she got up to walk to the bathroom her chest pain significantly increased, so she came to the ER for further evaluation and treatment. Of note, patient notesthat she has been having left lower extremity swelling during the last few days as well which has been painful at times. No recent travel and patient denies any sedentary work but notes that she is currently not employed. ?? In the emergency department, troponins were negative, EKG shows sinus rhythm with occasional PVCs. Labs showed no leukocytosis, creatinine of 1.18, GFR 56, and D-dimer of 1050. CT of the chest was ordered which did not show any pulmonary embolism or any abnormal CT findings within the chest, but did note previous right hydronephrosis. Lower extremity Dopplers were performed which was negative forDVT. HEART score 5. Patient was admitted for further evaluation and treatment of chest pain. Hospital Course: Chest pain: -??ACS rule out -Risk stratification including TSH A1c lipid panel -Troponin so far negative x3, continue to trend -??EKG shows sinus rhythm with occasional PVCs -??Telemetry - 07/10/21 Echocardiogram showed EF of 55 to 60%. - Unfortunately, stress test was not available on Sunday and stress test was postponed to Sunday. - 07/11/21 Stress test negative with low risk for cardiac event. ?? Elevated D-dimer: -??Patient complain of chest pain as well as left lower extremity swelling -No recent travel however -Patient has had a history of COVID-19 infection back in 2019 -CTA chest negative for pulmonary embolism or any acute cardiopulmonary process -??Dopplers bilateral lower extremities negative for DVT -??We will discontinue Lovenox treatment dose and switch to prophylactic dose Lovenox -??Recheck D-dime;??if trending up, consider testing for COVID-19 - D-Dimer now trending down ?? Obesity -BMI 30 -Dietary modifications and daily exercise to be followed up with primary care physician -Risk stratification including TSH A1c lipid panel ?? Essential??HTN: Blood pressure is now starting to improve -Blood pressures elevated on admission -??Restart home medications -??Monitor closely -Adjust blood pressure medications if necessary -Blood pressure now starting to improve ? Hyperlipidemia and hypertriglyceridemia -Order lipid panel, LDL at goal 50 to -Elevated triglycerides 333 -Patient has a reaction to fish oil, thus discontinue -Changed simvastatin to atorvastatin 40 mg daily. ?? History of COVID-19 infection in 2020 -No??fever chills cough congestion runny nose sore throat body aches currently; however D-dimer is elevated even though CTA chest negative and bilateral lower extremity Dopplers negative ?? 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 Slight HEMA: Improving -Patient does have hx of blockage of right kidney -Unclear if patient has HEMA versus CKD, seems like HEMA -Creatinine has come down from 1.18->0.82->0.91 -??Monitor kidney function ?? Folliculitis -Recent diagnosis -??Continue doxycycline for now ?? Hypokalemia: - Potassium slightly low at 3.4->4.0 after replacement - Oral replacement - Monitor as outpatient ?? Hypomagnesemia: - Magnesium low at 1.6->1.7 - Order phosphorus level 4.0; K 4.0 - Oral placement again today - Monitor as outpatient ?? Disposition: Echocardiogram showed EF of 55 to 60%. Stress test negative with low risk for cardiac event. Discussed results with patient. Patient will be discharged home with medications noted below.Patient instructed to follow-up with primary care physician in 1-2 weeks for follow-up. Patient understands all instructions and is in agreement with all instructions and plan for discharge today. Strict return precautions given. Patient discharged today in stable condition. Findings that require further workup: none Consults: none Significant Diagnostic Studies: Recent Results (from the past 24 hour(s)) TROPONIN, QUANT Collection Time: 07/10/21 2:34 PM Result Value Ref Range TROPONIN I HIGH SENSITIVITY 5 <54 ng/L POCT glucose Collection Time: 07/10/21 3:38 PM Result Value Ref Range GLUCOSE POC 242 (H) 70 - 99 mg/dL POCT glucose Collection Time: 07/10/21 8:34 PM Result Value Ref Range GLUCOSE POC 169 (H) 70 - 99 mg/dL POCT glucose Collection Time: 07/11/21 5:53 AM Result Value Ref Range GLUCOSE POC 142 (H) 70 - 99 mg/dL CBC W/DIFF AUTOMATED Collection Time: 07/11/21 6:55 AM Result Value Ref Range WBC 9.2 4.5 [...] 0.49 x10'3/uL COMPREHENSIVE METABOLIC PANEL Collection Time: 07/11/21 6:55 AM Result Value Ref Range GLUCOSE 120 (H) [...] 77 (L) >90 ML/MIN/1.73 M2 TROPONIN, QUANT Collection Time: 07/11/21 6:55 AM Result Value Ref Range TROPONIN I HIGH SENSITIVITY 6 <54 ng/L D-DIMER, QUANTITATIVE Collection Time: 07/11/21 6:55 AM Result Value Ref Range D-DIMER 929 (HH) 0 - 500 ng[FEU]/mL MAGNESIUM Collection Time: 07/11/21 6:55 AM Result Value Ref Range MAGNESIUM 1.7 (L) 1.8 - 2.4 MG/DL PHOSPHORUS, INORGANIC PHOSPHATE Collection Time: 07/11/21 6:55 AM Result Value Ref Range PHOSPHORUS 4.0 2.5 - 4.9 MG/DL POCT glucose Collection Time: 07/11/21 11:16 AM Result Value Ref Range GLUCOSE POC 213 (H) 70 - 99 mg/dL Radiology Reports : Radiology Results (Last 30 days) 07/11/21 1117 NM PHARM NUC STRESS TEST 1DAY Final result 07/10/21 1037 USE ECHOCARDIOGRAM W CON Final result 07/09/212044 USV JOANIE DUPLEX LOW EXT NOHEMY Preliminary result This result has not been signed. Information might be incomplete. 07/09/211925 CTA CHEST Final result Impression: =====IMPRESSION:===== 1. No pulmonary thromboembolic disease. 2. No CT findings of an acute abnormality within the chest 3. Partially visualized right hydronephrosis, better characterized on the prior CT abdomen and pelvis examination from 04/15/2021 Ordered By: EDUARDA CHESTER Interpreted By: Hubert Martínez MD, 07/09/2021 7:29 PM 07/09/21 1530 XR CHEST PORTABLE Final result Impression: IMPRESSION: ======== 1. No acute cardiopulmonary findings within limitations of exam Referred By: Interpreted By: Sanchez Pate MD, 07/09/2021 3:31 PM 07/02/21 1312 MG SCREENING W FELTON NOHEMY DIGI Final result Impression: =====IMPRESSION:===== No mammographic findings suggestive of malignancy ASSESSMENT: ACR BI-RADS 2 - BENIGN FINDING(S) Recommendation: 1: Routine Screening Bilateral COMMENTS: Ordered By: YASMIN SEGURA II Interpreted By: Wilian Cruz MD, 07/06/2021 10:14 AM 06/21/21 1332 USV ART REST W ADRIANA LOW EXT Final result Discharge Exam: Filed Vitals: 07/11/21 0001 07/11/21 0348 07/11/21 0721 07/11/21 1112 BP: 130/76 127/75 (!) 141/83 134/82 Pulse: 89 89 88 88 Resp: 16 16 16 15 Temp: 98.8 ??F (37.1 ??C) 98.2 ??F (36.8 ??C) 98.1 ??F (36.7 ??C) 97.9 ??F (36.6 ??C) TempSrc: Oral Oral Oral Oral SpO2: 99% 99% 100% 100% Weight: 84.4 kg (186 lb 1.1 oz) Height: Physical Exam -GENERAL: No acute distress, breathing comfortably on room air. -EYES: Extraocular movements intact, PERRLA -ENT: External ears and nose unremarkable. ??Mucous membranes moist -LUNG: Clear to auscultation bilaterally, No wheezes, No crackles, nonlabored -CVS: Regular rate rhythm, S1 and S2 normal -ABDOMEN: Positive bowel sounds, soft, nondistended, Nontender, obese -EXT: no lower Ext edema. ??Amputation of second and third toe of the left foot -NEURO: Alert, awake, oriented x3, poor vision but otherwise no gross neuro deficit -PSYCH: Alert and oriented ??3, pleasant -SKIN: Folliculitis improving Discharge Medications: Medication List START taking these medications Morning Afternoon Evening Bedtime As Needed atorvastatin 40 MG tablet Commonly known as: LIPITOR Take 1 tablet (40 mg total) by mouth nightly at bedtime for 30 days. Last time this was given: 20 mg on July 10, 2021 9:28 PM Replaces: simvastatin 40 MG tablet CONTINUE taking these medications Morning Afternoon Evening Bedtime As Needed amLODIPine 10 MG tablet Commonly known as: NORVASC Take 1 tablet (10 mg total) by mouth daily. Last time this was given: 10 mg on July 10, 2021 9:28 PM doxycycline hyclate 100 MG capsule Commonly known as: VIBRAMYCIN Take 1 capsule (100 mg total) by mouth 2 (two) times daily for 10 days. Last time this was given: 100 mg on July 11, 2021 11:14 AM Glucose Blood test strip USE 1 STRIP TO CHECK GLUCOSE TWICE DAILY HumaLOG Mix 75/25 (75-25) 100 UNIT/ML Susp Inject 60 units ;subcutaneously in the morning and 55 in the evening Generic drug: insulin lispro protamine-insulin lispro linaCLOtide 145 MCG capsule Commonly known as: LINZESS Take 1 capsule (145 mcg total) by mouth every morning before breakfast. Take on empty stomach at least 30 minutes prior to the first meal of the day. Swallow whole. Do not open capsule or chew. lisinopril 40 MG tablet Commonly known as: PRINIVIL Take 1 tablet by mouth once daily Last time this was given: 40 mg on July 11, 2021 11:14 AM nitroglycerin 0.4 MG SL tablet Commonly known as: NITROSTAT Place 0.4 mg under the tongue every 5 (five) minutes as needed. FOR CHEST PAIN DO NOT EXCEED A TOTAL OF 3 DOSES IN 15 MINUTES Last time this was given: Ask your nurse or doctor ondansetron 4 MG disintegrating tablet Commonly known as: ZOFRAN-ODT Take 1 tablet (4 mg total) by mouth every 8 (eight) hours as needed for Nausea. Last time this was given: Ask your nurse or doctor Pill Splitter Misc 1 Device by Does not apply route daily. ReliOn Insulin Syringe 31G X 15/64 1 ML Misc USE 1 SYRINGE SUBCUTANEOUSLY TWICE DAILY Generic drug: Insulin Syringe-Needle U-100 SITagliptin 100 MG tablet Commonly known as: JANUVIA Take 1 tablet (100 mg total) by mouth daily. Trulicity 3 MG/0.5ML Sopn Inject 3 mg into the skin weekly. Generic drug: Dulaglutide STOP taking these medications simvastatin 40 MG tablet Commonly known as: ZOCOR Replaced by: atorvastatin 40 MG tablet Disposition: Home with self care Time Spent on Discharge: 34 minutes Signed: Eduarda Chester MD documented in this encounter Discharge Instructions * Attachments The following attachments cannot be sent through Care Everywhere. * Chest Pain Discharge Instructions (Tongan) * Atorvastatin, ADULT (Tongan) documented in this encounter Medications at Time of Discharge amLODIPine 10 MG tabletIndications:H ypertension, unspecified type [The details of the medication are not available because there are pending changes by a home health clinician.] 90 tablet 3 1 08/08/19 23 atorvastatin 40 MG tablet Take 1 tablet (40 mg total) by mouth nightly at bedtime for 30 days. 30 tablet 2 08/11/19 22 doxycycline hyclate 100 MG capsuleIndications: Folliculitis Take 1 capsule (100 mg total) by mouth 2 (two) times daily for 10 days. 20 capsule 2 07/17/19 22 Dulaglutide (TRULICITY) 3 MG/0.5ML Solution Pen-injectorIndicat ions:Type 2 diabetes mellitus with diabetic neuropathic arthropathy, with long-term current use of insulin ([facility]) Inject 3 mg into the skin weekly. 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, with long-term current use of insulin ([facility]) USE 1 STRIP TO CHECK GLUCOSE TWICE DAILY 200 strip 3 2 01/02/20 22 HUMALOG MIX 75/25 (75-25) 100 UNIT/ML SuspensionIndicatio ns:Type 2 diabetes mellitus with retinopathy, with long-term current use of insulin, macular edema presence unspecified, unspecified laterality, unspecified retinopathy severity ([facility]) Inject 60 units ;subcutaneously in the morning and 55 in the evening 40 mL 3 2 01/02/20 linaCLOtide 145 MCG capsuleIndications: Chronic idiopathic constipation [The details of the medication are not available because there are pending changes by a home health clinician.] 30 capsule 5 2 03/15/19 LISINOPRIL 40 MG tabletIndications:P rimary hypertension Take 1 tablet by mouth once daily 30 tablet 5 2 01/07/20 22 Misc. Devices (PILL SPLITTER) MiscIndications:Olivia jonatan hypertension 1 Device by Does not apply route daily. 1 each 1 1 08/18/19 nitroglycerin 0.[address] 0.4 mg under the tongue every 5 (five) minutes as needed. FOR CHEST PAIN DO NOT EXCEED A TOTAL OF 3 DOSES IN 15 MINUTES 1 12/17/19 ondansetron 4 MG disintegrating tabletIndications:N ausea Take 1 tablet (4 mg total) by mouth every 8 (eight) hours as needed for Nausea. 20 tablet 2 10/12/19 RELION INSULIN SYRINGE 31G X 15/64 1 ML MiscIndications:Typ e 2 diabetes mellitus with diabetic neuropathic arthropathy, with long-term current use of insulin ([facility]) USE 1 SYRINGE SUBCUTANEOUSLY TWICE DAILY 100 each 5 1 01/02/20 SITagliptin 100 MG tabletIndications:T ype 2 diabetes mellitus with diabetic neuropathic arthropathy, with long-term current use of insulin ([facility]) Take 1 tablet (100 mg total) by mouth daily. 90 tablet 3 2 12/27/19 22 documented as of this encounter Progress Notes * Mirta Valles, RN - 07/11/2021 1:43 PM CDT This CM was unable to complete assessment interview with patient prior to discharge as patient had been off the unit for testing. Per patient's RN, Janna, patient had no CM needs prior to discharge. Patient reported that she drove herself to the hospital and will drive herself home, if appropriate. Case closed. 07/11/21 1612 Discharge Planning Assistance/Services Needed No IV Infusion at discharge No Patient expects to be discharged to: Home DME Needed at Discharge No * Kaitlin Almendarez RN - 07/11/2021 1:18 PM CDT 07/11/21 1318 Discharge Planning Living Arrangements Alone Support Systems Children Type of Residence Private residence Patient expects to be discharged to: Home NCM performed bedside interview, verified patient's name and : Support: children, spouse Home: with spouse Ambulation: Reports independent prior to admission. DME products: none Medical Devices: none ADLs: Reports independent prior to admission. Transport Home: self Skin/Bladder/Bowel: No deficits reported A/O: Patient is alert, oriented to person, place, time, and situation Communication: Patient can communicate without deficits. Home Health: none Occupation: disabled Pharmacy: [facility] Financial Concerns: No financial concerns reported PCP/Insurance Plan: [place]/[facility] Discharge needs: denies any needs for discharge. States will be driving self home. States will pickup scripts from [facility] on way home. RNCM will follow case daily and will continuouslyevaluate discharge needs based on recommendations and treatment course. * Sharyn Garza RN - 07/10/2021 10:48 PM CDT Problem: Pain Goal: Patient's pain/discomfort [...] Reduced Risk of Polypharmacy Outcome: Progressing * Eduarda Chester MD - 07/10/2021 4:04 PM CDT Hospitalist Daily Progress Note Subjective Patient seen and evaluated earlier this morning. Patient still has chest pain at times but not currently on my evaluation. Echocardiogram completed. Currently patient denies any shortness of breath nausea vomiting abdominal pain fevers or chills. Unfortunately, stress test is not available today and had to be postponed to tomorrow. Objective Filed Vitals: 07/10/21 0405 07/10/21 0710 07/10/21 1106 07/10/21 1540 BP: 125/81 139/80 (!) 143/81 127/77 Pulse: 92 85 85 86 Resp: 16 18 16 18 Temp: 98.4 ??F (36.9 ??C) 97.7 ??F (36.5 ??C) 98.4 ??F (36.9 ??C) TempSrc: Oral Oral Axillary Axillary SpO2: 100% 100% 99% 100% Weight: Height: Physical Exam: -GENERAL: No acute distress, breathing comfortably on room air. -EYES: Extraocular movements intact, PERRLA -ENT: External ears and nose unremarkable. Mucous membranes moist -LUNG: Clear to auscultation bilaterally, No wheezes, No crackles, nonlabored -CVS: Regular rate rhythm, S1 and S2 normal -ABDOMEN: Positive bowel sounds, soft, nondistended, Nontender, obese -EXT: no lower Ext edema. Amputation of second and third toe of the left foot -NEURO: Alert, awake, oriented x3, poor vision but otherwise no gross neuro deficit -PSYCH: Alert and oriented ??3, pleasant -SKIN: Folliculitis improving Intake/Output 24H Total: Intake/Output Summary (Last 24 hours) at 07/10/2021 1604 Last data filed at 07/09/2021 2337 Gross per 24 hour Intake 150 ml Output -- Net 150 ml Medication ??? amLODIPine 10 mg Oral nightly ??? aspirin EC 81 mg Oral Daily ??? atorvastatin 20 mg Oral Nightly at bedtime ??? doxycycline hyclate 100 mg Oral BID ??? enoxaparin 40 mg Subcutaneous Nightly (enoxaparin) ??? fish oil 1,000 mg Oral BID ??? insulin aspart protamine-insulin aspart 55 Units Subcutaneous BID AC ??? insulin lispro 0-14 Units Subcutaneous TID AC And ??? insulin lispro 0-7 Units Subcutaneous Nightly at bedtime ??? lisinopril 40 mg Oral Daily acetaminophen, albuterol sulfate HFA, docusate sodium, HYDROcodone- acetaminophen, morphine, naLOXone, ondansetron, polyethylene glycol Labs: Recent Labs Lab 07/09/21 1545 07/10/21 0523 WBC 10.6 9.6 RBC 3.93* 3.50* HGB 12.0 10.6* HCT 35.2* 31.6* MCV 89.6 90.3 MCH 30.5 30.3 MCHC 34.1 33.5 PLT 282 249 RDW 13.2 13.3 MPV 11.2 11.4 PERNEU 64.1 52.7 PERLYM 29.6 41.3 PERMON 4.6 4.5 LYMC 3.13 3.96 MONOC 0.49 0.43 EOSC 0.06 0.07 BASOC 0.05 0.05 DTYPE AUTOMATED DIFFERENTIAL AUTOMATED DIFFERENTIAL Recent Labs Lab 07/09/21 1545 07/10/21 0523 NA 139 139 K 3.7 3.4* CL 104 106 CO2 29.5 26.9 AGAP 5.5 6.1 BUN 15 13 CR 1.18* 0.82 BUNCREATININ 12.7 16.0 GLU 167* 183* CA 9.1 8.6 TP 8.9* 7.5 ALB 3.5 2.8* TBIL 0.4 0.3 ALKP 120 101 AST 19 16 ALT 19 20 Recent Labs Lab 07/09/21 1545 07/10/21 0523 CHOL -- 150 TRI -- 333* HDL -- 31* LDL -- 52 HGBA1C 7.8* -- TSH 1.990 -- Recent Labs Lab 07/10/21 05 INR 1.1 PTT 32.1 Recent Labs Lab 07/10/21 0047 07/10/21 0523 07/10/21 1434 TROP 5 7 5 No results for input(s): LACTICACID, PROCT in the last 168 hours. No results for input(s): PH, PCO2, PO2, [id number], BICARBWB, BASEDEFICIT, BASEEXCESS in the [id number] hours. Results for orders placed or performed during the hospital encounter of 08/11/19 URINALYSIS, AUTO, COMPLETE Result Value Ref Range Specimen Type URINE CLEAN CATCH COLOR (U) LIGHT YELLOW TRANSPARENCY CLEAR Specific [place] (U) 1.024 1.001 - 1.030 U PH [...] /HPF X-Ray Radiology Results (Last 30 days) 07/10/21 1037 USE ECHOCARDIOGRAM W CON Final result 07/09/212044 USV JOANIE DUPLEX LOW EXT NOHEMY Preliminary result This result has not been signed. Information might be incomplete. 07/09/211925 CTA CHEST Final result Impression: =====IMPRESSION:===== 1. No pulmonary thromboembolic disease. 2. No CT findings of an acute abnormality within the chest 3. Partially visualized right hydronephrosis, better characterized on the prior CT abdomen and pelvis examination from 04/15/2021 Ordered By: EDUARDA CHESTER Interpreted By: Hubret Martínez MD, 07/09/2021 7:29 PM 07/09/21 1530 XR CHEST PORTABLE Final result Impression: IMPRESSION: ======== 1. No acute cardiopulmonary findings within limitations of exam Referred By: Interpreted By: Sanchez Pate MD, 07/09/2021 3:31 PM 07/02/21 1312 MG SCREENING W FELTON NOHEMY DIGI Final result Impression: =====IMPRESSION:===== No mammographic findings suggestive of malignancy ASSESSMENT: ACR BI-RADS 2 - BENIGN FINDING(S) Recommendation: 1: Routine Screening Bilateral COMMENTS: Ordered By: YASMIN SEGURA II Interpreted By: Wilian Cruz MD, 07/06/2021 10:14 AM 06/21/21 1332 USV ART REST W ADRIANA LOW EXT Final result Assessment & Plan: Chest pain: - ACS rule out -Risk stratification including TSH A1c lipid panel -Troponin so far negative x3, continue to trend - EKG shows sinus rhythm with occasional PVCs - Telemetry - Echocardiogram showed EF of 55 to 60%. - Unfortunately, stress test is not available today and had to be postponed to tomorrow. Plan for stress test tomorrow morning. - Consider cardiology consult if any abnormalities ?? Elevated D-dimer: - Patient complain of chest pain as well as left lower extremity swelling -No recent travel however -Patient has had a history of COVID-19 infection back in 2019 -CTA chest negative for pulmonary embolism or any acute cardiopulmonary process - Dopplers bilateral lower extremities negative for DVT - We will discontinue Lovenox treatment dose and switch to prophylactic dose Lovenox -D-dimer still about the same - Recheck D-dimer tomorrow morning; if trending up, consider testing for COVID-19 ?? Obesity -BMI 30 -Dietary modifications and daily exercise to be followed up with primary care physician -Risk stratification including TSH A1c lipid panel ?? Essential HTN: Blood pressure is now starting to improve -Blood pressures elevated on admission - Restart home medications - Monitor closely -Adjust blood pressure medications if necessary -Blood pressure now starting to improve ?? Hyperlipidemia and hypertriglyceridemia -Order lipid panel - Continue simvastatin -Elevated triglycerides 333, added fish oil ?? History of COVID-19 infection in 2019 -No fever chills cough congestion runny nose sore throat body aches currently; however D-dimer is elevated even though CTA chest negative and bilateral lower extremity Dopplers negative ?? 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 Folliculitis -Recent diagnosis - Continue doxycycline for now Hypokalemia: - Potassium slightly low at 3.4 - Oral replacement - Monitor Hypomagnesemia: - Magnesium low at 1.6 - Order phosphorus level - For oral placement - Monitor ?? DVT prophylaxis: Subcutaneous Lovenox Full code Disposition: Echocardiogram showed EF of 55 to 60%. Unfortunately, stress test is not available today and had to be postponed to tomorrow. Plan for stress test tomorrow morning. Other changes to plan of care to be made based on progress during hospitalization. All plans discussed with RN and patient. They are agreeable with plan and voiced understanding. This note was dictated with [employer] medical dictation software; misspellings, punctuation errors, omitted words or dictation variances may occur. 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 She noted that for the past 4 days she has had worsening chest pain on the left side of her chest radiating up to her back shoulder and neck with diaphoresis at times and more on exertion than at rest. She tried taking ibuprofen and muscle relaxers but this did not help with the pain. She states that this has been going off and on for the last 4 days and is relieved with rest. She denies any fever URI or recent illness although she has been recently treated with doxycycline for folliculitis. Earlier today when she got up to walk to the bathroom her chest pain significantly increased, so she came to the ER for further evaluation and treatment. Of note, patient notesthat she has been having left lower extremity swelling during the last few days as well which has been painful at times. No recent travel and patient denies any sedentary work but notes that she is currently not employed. In the emergency department, troponins were negative, EKG shows sinus rhythm with occasional PVCs. Labs showed no leukocytosis, creatinine of 1.18, GFR 56, and D-dimer of 1050. CT of the chest was ordered which did not show any pulmonary embolism or any abnormal CT findings within the chest, but did note previous right hydronephrosis. Lower extremity Dopplers were performed which was negative forDVT. HEART score 5. Patient was admitted for further evaluation and treatment of chest pain. Allergy Allergies Allergen Reactions ??? Amoxicillin Rash ??? Penicillins Rash Medication list (Not in a hospital admission) No current facility-administered medications on file prior to encounter. Current Outpatient Medications on File Prior to Encounter Medication Sig Dispense Refill ??? amLODIPine 10 MG tablet Take 1 tablet (10 mg total) by mouth daily. (Patient taking differently: Take 10 mg by mouth nightly. ) 90 tablet 3 ??? doxycycline hyclate 100 MG capsule Take 1 capsule (100 mg total) by mouth 2 (two) times daily for 10 days. 20 capsule 0 ??? HUMALOG MIX 75/25 (75-25) 100 [...] mouth once daily 30 tablet 5 ??? simvastatin 40 MG tablet Take 40 mg by mouth nightly at bedtime. ??? SITagliptin 100 MG tablet Take 1 tablet (100 mg total) by mouth daily. 90 tablet 3 ??? Dulaglutide (TRULICITY) 3 MG/0.5ML Solution Pen-injector Inject 3 mg into the skin weekly. (Patient taking differently: Inject 3 mg into the skin weekly. ) 12 pen 3 ??? Glucose Blood test strip USE 1 STRIP TO CHECK GLUCOSE TWICE DAILY 200 strip 3 ??? Misc. Devices (PILL SPLITTER) Misc 1 [...] route as needed. ) 100 each 5 Past Medical History Past Medical History: Diagnosis [...] file Intimate Partner Violence: Not on file Family History Family History Problem Relation Name [...] Range Most Recent Value Temperature Temp Min: 98.6 ??F (37 ??C) Max: 98.6 ??F (37 ??C) 98.6 ??F (37 ??C) Pulse Pulse Min: 93 Max: 97 95 Respiratory Resp Min: 14 Max: 18 17 Blood Pressure BP Min: 159/95 Max: 166/96 (!) 159/95 Pulse Oximetry SpO2 Min: 97 % Max: 100 % 98 % O2 No data recorded Vital Most Recent Value First Value Weight 84.4 kg (186 lb) Weight: 84.4 kg (186 lb) Height 5' 6 (167.6 cm) Height: 5' 6 (167.6 cm) BMI (!) 30.02 N/A Physical Exam: Physical Exam -GENERAL: No acute distress, breathing comfortably on room air. -EYES: Extraocular movements intact, PERRLA -ENT: External ears and nose unremarkable. Mucous membranes moist -LUNG: Clear to auscultation bilaterally, No wheezes, No crackles, nonlabored -CVS: Regular rate rhythm, S1 and S2 normal -ABDOMEN: Positive bowel sounds, soft, nondistended, Nontender, obese -EXT: no lower Ext edema. Amputation of second and third toe of the left foot -NEURO: Alert, awake, oriented x3, poor vision but otherwise no gross neuro deficit -PSYCH: Alert and oriented ??3, pleasant -SKIN: Folliculitis improving Intake/Output last 3 shifts: No intake/output data recorded. Labs: Recent Labs Lab 07/09/21 1545 NA 139 K 3.7 CL 104 CO2 29.5 AGAP 5.5 BUN 15 CR 1.18* BUNCREATININ 12.7 GLU 167* CA 9.1 Recent Labs Lab 07/09/21 1545 WBC 10.6 RBC 3.93* HGB 12.0 HCT 35.2* MCV 89.6 MCH 30.5 MCHC 34.1 PLT 282 RDW 13.2 MPV 11.2 Recent Labs Lab 07/09/21 1545 AST 19 ALT 19 No results for input(s): INR, PTT in the last 168 hours. Invalid input(s): ABG arterial blood gases Recent Labs Lab 07/09/21 1545 TROP 5 No results for input(s): PH, PCO2, PO2, [id number], BICARBWB, BASEDEFICIT, BASEEXCESS in the [id number] hours. Imagining & Other Studies Radiology Results (Last 30 days) 07/09/212044 USV JOANIE DUPLEX LOW EXT NOHEMY Preliminary result 07/09/211925 CTA CHEST Final result Impression: =====IMPRESSION:===== 1. No pulmonary thromboembolic disease. 2. No CT findings of an acute abnormality within the chest 3. Partially visualized right hydronephrosis, better characterized on the prior CT abdomen and pelvis examination from 04/15/2021 Ordered By: EDUARDA CHESTER Interpreted By: Hubert Martínez MD, 07/09/2021 7:29 PM 07/09/21 1530 XR CHEST PORTABLE Final result Impression: IMPRESSION: ======== 1. No acute cardiopulmonary findings within limitations of exam Referred By: Interpreted By: Sanchez Pate MD, 07/09/2021 3:31 PM 07/02/21 1312 MG SCREENING W FELTON NOHEMY DIGI Final result Impression: =====IMPRESSION:===== No mammographic findings suggestive of malignancy ASSESSMENT: ACR BI-RADS 2 - BENIGN FINDING(S) Recommendation: 1: Routine Screening Bilateral COMMENTS: Ordered By: YASMIN SEGURA II Interpreted By: Wilian Cruz MD, 07/06/2021 10:14 AM 06/21/21 1332 USV ART REST W ADRIANA LOW EXT Final result Results for orders placed or performed during the hospital encounter of 07/09/21 [address] 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 Test Date: 2021-07-09 Pat Name: TYSON YOUNGBLOOD Department: 41 Room: EXAM20 Gender: Female Grind Operator: KHAI : 1970 Requested By: KRISTEL GAY Order Number: [id number] Reading MD: Brianna Acosta Measurements Intervals [place] Rate: 96 P: 36 NV: 176 QRS: 10 QRSD: 86 T: 0 QT: 298 QTc: 376 Interpretive Statements SINUS RHYTHM WITH FREQUENT VENTRICULAR PREMATURE COMPLEXES MODERATE VOLTAGE CRITERIA FOR LVH, CONSIDER NORMAL VARIANT NONSPECIFIC T-WAVE ABNORMALITY ABNORMAL RHYTHM ECG Compared to ECG 07/09/2021 15:10:55 No significant changes Assessment & Plan Chest pain Chest pain: - ACS rule out -Risk stratification including TSH A1c lipid panel -Troponin so far negative, continue to trend - EKG shows sinus rhythm with occasional PVCs - Telemetry - Echocardiogram ordered - Stress test tomorrow morning - Consider cardiology consult if any abnormalities Elevated D-dimer: - Patient complain of chest pain as well as left lower extremity swelling -No recent travel however -Patient has had a history of COVID-19 infection back in 2019 -CTA chest negative for pulmonary embolism - Dopplers bilateral lower extremities negative for DVT - We will discontinue Lovenox treatment dose and switch to prophylactic dose Lovenox - Recheck D-dimer tomorrow morning; if trending up, consider testing for COVID-19 Obesity -BMI 30 -Dietary modifications and daily exercise to be followed up with primary care physician Essential HTN -Blood pressures elevated on admission - Restart home medications - Monitor closely -Adjust blood pressure medications if necessary Hyperlipidemia -Order lipid panel - Continue simvastatin History of COVID-19 infection in 2019 -No fever chills cough congestion runny nose sore throat body aches currently 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 Observation level of care Eduarda Chester MD 07/09/2021 6:27 PM documented in this encounter Nursing Notes * Servando Sung RN - 07/10/2021 12:30 AM CDT Pt has a wound on her left sole. This RN tried to take wound image using the EPIC [place] thrice but it is not working properly and unable to take wound picture. See simple assess for wound assessment. documented in this encounter ED Notes * CYNTHIA Babb - 07/09/2021 4:23 PM CDT ED NOTE Chief Complaint Chief Complaint Patient presents with ??? Chest Pain History of Present Illness 51-year-old female with a history of high blood pressure, high cholesterol, diabetes, renal disorder, UTI, arthritis sent to the emergency room for evaluation of chest pain. Patient reports chest pain has been going on for the past 4 days. Pain is in the left side of her chest and radiates to her back, shoulder and neck. Denies any dizziness, shortness of breath, nausea, diaphoresis. No history of NE or need for cardiac intervention in the past. Tried taking ibuprofen and muscle relaxer howeverthis did not help the pain. Reports that when she got up to walk to the bathroom pain significantlyincreased which prompted her to get further evaluation here today. No lower leg edema. Denies fever, URI, recent illness. Medical History ALLERGIES: Allergies Allergen Reactions ??? Amoxicillin Rash ??? Penicillins Rash MEDICATIONS: Prior to Admission medications Medication Sig Start Date End Date Taking? Authorizing Provider amLODIPine 10 MG tablet Take 1 tablet (10 mg total) by mouth daily. Patient taking differently: Take 10 mg by mouth nightly. 09/24/20 Yes Yasmin Segura II, MD doxycycline hyclate 100 MG capsule Take 1 capsule (100 mg total) by mouth 2 (two) times daily for 10 days. 07/06/21 07/16/21 Yes Yasmin Segura II, MD HUMALOG MIX 75/25 (75-25) 100 UNIT/ML Suspension Inject 60 units ;subcutaneously in the morning and55 in the evening Patient taking differently: Inject 65 units ;subcutaneously in the morning and 55 in the evening 05/16/21 Yes Yasmin Segura II, MD linaCLOtide 145 MCG capsule Take 1 capsule (145 mcg total) by mouth every morning before breakfast.Take on empty stomach at least 30 minutes prior to the first meal of the day. Swallow whole. Do notopen capsule or chew. 04/20/21 Yes Yasmin Segura II, MD LISINOPRIL 40 MG tablet Take 1 tablet by mouth once daily 05/31/21 Yes Yasmin Segura II, MD simvastatin 40 MG tablet Take 40 mg by mouth nightly at bedtime. 11/03/16 Yes Doc Abstract SITagliptin 100 MG tablet Take 1 tablet (100 mg total) by mouth daily. 05/04/21 Yes Yasmin Segura II, MD Dulaglutide (TRULICITY) 3 MG/0.5ML Solution Pen-injector Inject 3 mg into the skin weekly. Patient taking differently: Inject 3 mg into the skin weekly. 03/21/21 Yasmin Segura II, MD Glucose Blood test strip USE 1 STRIP TO CHECK GLUCOSE TWICE DAILY 04/29/21 Yasmin Segura II, MD Misc. Devices (PILL SPLITTER) Misc 1 Device by Does not apply route daily. 10/08/20 Yasmin Segura II, MD nitroglycerin 0.[address] 0.4 mg under the tongue every 5 (five) minutes as needed. FOR CHEST PAIN DO NOT EXCEED A TOTAL OF 3 DOSES IN 15 MINUTES 07/07/20 Doc Abstract ondansetron 4 MG disintegrating tablet Take 1 tablet (4 mg total) by mouth every 8 (eight) hours asneeded for Nausea. 04/12/21 Yasmin Segura II, MD RELION INSULIN SYRINGE 31G X 15/64 1 ML Misc USE 1 SYRINGE SUBCUTANEOUSLY TWICE DAILY Patient taking differently: 1 Syringe by Other route as needed. 12/06/20 Jarred Rod MD PAST MEDICAL HISTORY: Past Medical History: [...] for chills and fever. HENT: Negative for ear pain, sinus pain and sore throat. Eyes: Negative for pain and visual disturbance. Respiratory: Negative for cough and shortness of breath. Cardiovascular: Positive for chest pain. Negative for palpitations. Gastrointestinal: Negative for abdominal pain, diarrhea, nausea and vomiting. Genitourinary: Negative for dysuria, hematuria and urgency. Musculoskeletal: Positive for arthralgias, back pain and neck pain. Skin: Negative for rash and wound. Allergic/Immunologic: Negative for food allergies. Neurological: Negative for dizziness, tremors, seizures and numbness. Psychiatric/Behavioral: Negative. Physical Exam Filed Vitals: 07/09/21 1600 07/09/21 1630 07/09/21 1700 07/09/21 1845 BP: (!) 159/85 (!) 159/95 (!) 149/97 Pulse: 93 93 95 92 Resp: 14 15 17 12 Temp: TempSrc: SpO2: 100% 97% 98% 97% Weight: Height: Physical Exam Vitals and nursing [...] Normal range of motion and neck supple. Right lower leg: No edema. Left lower leg: No edema. Skin: General: Skin is warm and dry. Capillary Refill: Capillary refill takes less than 2 seconds. Neurological: General: No focal deficit present. Mental Status: She is alert and oriented to person, place, and time. Psychiatric: Mood and Affect: Mood normal. Behavior: Behavior normal. Diagnostic Studies / Procedures ELECTROCARDIOGRAMS: Results for orders placed or performed during the hospital encounter of 07/09/21 [address] 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 [address] Test Date: 2021-07-09 Pat Name: [facility] Department: Room: EXAM20 Gender: Female Grind Operator: KHAI : 1970 Requested By: KRISTEL GAY Order Number: [id number] Reading MD: Brianna Acosta Measurements Intervals [place] Rate: 96 P: 36 NV: 176 QRS: 10 QRSD: 86 T: 0 QT: 298 QTc: 376 Interpretive Statements SINUS RHYTHM WITH FREQUENT VENTRICULAR PREMATURE COMPLEXES MODERATE VOLTAGE CRITERIA FOR LVH, CONSIDER NORMAL VARIANT NONSPECIFIC T-WAVE ABNORMALITY ABNORMAL RHYTHM ECG Compared to ECG 07/09/2021 15:10:55 No significant changes LABORATORY STUDIES: Results for orders placed or performed during the hospital encounter of 07/09/21 CBC W/DIFF AUTOMATED Result Value Ref Range [...] D-DIMER 1,050 (HH) 0 - 500 ng[FEU]/mL IMAGING STUDIES CTA CHEST Final Result by User, [id number] (07/09 1934) EXAMINATION: CTA CHEST WITH CONTRAST EXAM DATE/TIME: 07/09/2021 7:10 PM REASON FOR EXAM: Left-sided chest pain COMPARISON: CT chest 04/28/2019 TECHNIQUE: Computed tomography angiography was performed of the chest after administration of intravenous contrast, 80mL IOPAMIDOL 76 % IV SOLN, according to routine protocol. Additional 3-D reconstructions and postprocessing were performed independently by the attending radiologist and a separate dedicated 3-D workstation. A dose lowering technique was used [...] better characterized on the prior CT abdomen pelvis examination from 04/15/2021. There is no acute fracture nor destructive process involving the visualized osseous structures. =====IMPRESSION:===== 1. No pulmonary thromboembolic disease. 2. No CT findings of an acute abnormality within the chest 3. Partially visualized right hydronephrosis, better characterized on the prior CT abdomen and pelvis examination from 04/15/2021 Ordered By: EDUARDA CHESTER Interpreted By: Hubert Martínez MD, 07/09/2021 7:29 PM XR CHEST PORTABLE Final Result by User, [id number] (07/09 1533) Examination: Chest Radiograph, 1 view Exam Date/Time: 07/09/2021 3:23 PM Reason For Exam: Chest pain Constipation for the past 4 days radiating to the left shoulder and neck. Comparison: 04/15/2021 chest radiograph Technique: Single AP view of the chest. Findings: Heart size stable. Pulmonary vascularity within normal limits. No large effusion or pneumothorax. No convincing focal infiltrate or consolidative change. ======== IMPRESSION: ======== 1. No acute cardiopulmonary findings within limitations of exam Referred By: Interpreted By: Sanchez Pate MD, 07/09/2021 3:31 PM USE ECHOCARDIOGRAM (Results Pending) USV JOANIE DUPLEX LOW EXT NOHEMY (Results Pending) ED Course / Medical Decision Making MDM Number of Diagnoses or Management Options Amount and/or Complexity of Data Reviewed Clinical lab tests: reviewed and ordered Tests in the radiology section of CPT??: reviewed and ordered Discuss the patient with other providers: yes (Dr. Chester, hospitalist) ED Course as of Jul 09 2021 Sat July 09, 2021 1546 Per rad read: No acute cardiopulmonary findings within limitations of exam XR CHEST PORTABLE [AD] 1622 EKG 1510 sinus rhythm rate 95 bpm NV 171 QTc 453 PVCs noted. No STEMI ECG 12 lead [AD] 1650 S/w Dr. Chester who accepts for tele obs. No additional orders. [AD] 1655 Pt updated on plan. C/o of left leg swelling, NVI intact. No hypoxia or resp distress. Denies SOB. Will add on ddimer, hospitalist aware [AD] [address] Chester on elevated ddimer, will add CTA and LE dopplers. [AD] ED Course User Index [AD] CYNTHIA Babb Medications nitroglycerin (NITRO-BID) 2 % ointment OINT 0.5 inch (0.5 inches Topical Patch Applied 07/09/211556) enoxaparin (LOVENOX) 80 mg/0.8 mL syringe 80 mg (80 mg Subcutaneous Given 07/09/211933) aspirin EC (ECOTRIN) tablet 81 mg (has no administration in time range) aspirin chewable tablet 324 mg (324 mg Oral Given 07/09/21 152) morphine injection 2 mg (2 mg Intravenous Given 07/09/211819) iopamidol (ISOVUE-370) 76 % injection 80 mL (80 mLs Intravenous Given 07/09/211926) Clinical Impression Chest pain (Primary) Current Discharge Medication List Disposition: Admit Follow-Up: No follow-up provider specified. CYNTHIA BABB 07/09/2021 CYNTHIA Babb 07/09/212021 Cosigned by Sanchez Vasquez MD at 07/10/2021 6:25 AM CDT * Willa Garrison RN - 07/09/2021 3:12 PM CDT Pt arrives complaining of left sided chest pain that radiates to her left arm and neck. Pain 9/10. Has been going on for about a week. Pain described as squeezing tightness. No cardiac history. * Kristel Gay COAL TRAMMER - 07/09/2021 3:05 PM CDT [place], [place] EMERGENCY DEPARTMENT ENCOUNTER Medical Screening Examination 07/09/21 3:10 PM Chief Complaint : Chest Pain HPI : Tyson Youngblood is a 51-year-old female who presents to the ED today for evaluation of CP. Pain has been present for the last 4 days. The pain is not constant. She is states that the pain will come and go and is shooting. States it does radiate to her left shoulder and neck. denies any associated nausea, dizziness, shortness of breath with the pain. Denies any cardiac history. She is beentaking ibuprofen without relief. States she also took a muscle relaxer. Vital Signs: There were no vitals filed for this visit. Physical exam: A brief physical exam was completed to facilitate/expedite patient care. [place] findings include: alert, stable, no tenderness on exam of chest. Pain is not reproducible. Respirations are regular and non-labored Plan: Labs & Imaging was ordered to facilitate patient care. and EKG was ordered to faciliate patient care. Kristel Gay, YENI 07/09/2021 Kristel aGy, YENI 07/09/21 1510 Cosigned by Sanchez Vasquez MD at 07/09/2021 5:45 PM CDT documented in this encounter Plan of Treatment Upcoming Encounters Date Type Department Care Team (Late st Contact Info) Description 03/14/2024 11:45 AM FIELD SEISMOLOGIST Office Visit [facility]-[address] [id number] Marvin Mckeon MD [address] [place] [address] 03/20/2024 11:30 AM FIELD SEISMOLOGIST Office Visit [facility] - [place] [address] [place] [id number] Yasmin Segura II, MD [address] [place] [address] documented as of this encounter Procedures Procedure Name Priority Date/Time Associated Diagnosis Comments NM PHARM NUC STRESS TEST 1DAY W TRACING Today 07/11/2021 11:17 AM CDT POCT GLUCOSE - CORREA DOCKED DEVICE Routine 07/11/2021 11:16 AM CDT STRESS TEST ONLY, EXERCISE Routine 07/11/2021 7:27 AM CDT COMPREHENSIVE METABOLIC PANEL Routine 07/11/2021 6:55 AM CDT D-DIMER, QUANTITATIVE Routine 07/11/2021 6:55 AM CDT CBC W/DIFF AUTOMATED Routine 07/11/2021 6:55 AM CDT TROPONIN, QUANT Routine 07/11/2021 6:55 AM CDT PHOSPHORUS, INORGANIC PHOSPHATE Routine 07/11/2021 6:55 AM CDT MAGNESIUM Routine 07/11/2021 6:55 AM CDT POCT GLUCOSE - CORREA DOCKED DEVICE Routine 07/11/2021 5:53 AM CDT POCT GLUCOSE - CORREA DOCKED DEVICE Routine 07/10/2021 8:34 PM CDT POCT GLUCOSE - CORREA DOCKED DEVICE Routine 07/10/2021 3:38 PM CDT TROPONIN, QUANT STAT 07/10/2021 2:34 PM CDT ECG 12-LEAD Routine 07/10/2021 2:18 PM CDT POCT GLUCOSE - CORREA DOCKED DEVICE Routine 07/10/2021 11:03 AM CDT USE ECHOCARDIOGRAM W CON STAT 07/10/2021 10:37 AM CDT POCT GLUCOSE - CORREA DOCKED DEVICE Routine 07/10/2021 5:37 AM CDT ECG 12-LEAD Routine 07/10/2021 5:27 AM CDT PARTIAL THROMBOPLASTIN TIME,PTT Routine 07/10/2021 5:23 AM CDT PROTHROMBIN TIME, VENOUS Routine 07/10/2021 5:23 AM CDT COMPREHENSIVE METABOLIC PANEL Routine 07/10/2021 5:23 AM CDT LIPID PANEL Routine 07/10/2021 5:23 AM CDT D-DIMER, QUANTITATIVE Routine 07/10/2021 5:23 AM CDT CBC W/DIFF AUTOMATED Routine 07/10/2021 5:23 AM CDT TROPONIN, QUANT TIMED 07/10/2021 5:23 AM CDT MAGNESIUM Routine 07/10/2021 5:23 AM CDT TROPONIN, QUANT TIMED 07/10/2021 12:47 AM CDT ECG 12-LEAD Routine 07/10/2021 12:19 AM CDT POCT GLUCOSE - CORREA DOCKED DEVICE Routine 07/09/2021 11:35 PM CDT USV JOANIE DUPLEX LOW EXT NOHEMY STAT 07/09/2021 8:45 PM CDT CTA CHEST STAT 07/09/2021 7:26 PM CDT D-DIMER, QUANTITATIVE STAT 07/09/2021 6:13 PM CDT TROPONIN, QUANT STAT 07/09/2021 6:13 PM CDT ECG 12-LEAD STAT 07/09/2021 5:11 PM CDT TSH W/REFLEX Routine 07/09/2021 3:45 PM CDT HEMOGLOBIN, GLYCOSYLATED Routine 07/09/2021 3:45 PM CDT COMPREHENSIVE METABOLIC PANEL STAT 07/09/2021 3:45 PM CDT CBC W/DIFF AUTOMATED STAT 07/09/2021 3:45 PM CDT TROPONIN, QUANT STAT 07/09/2021 3:45 PM CDT XR CHEST PORTABLE STAT 07/09/2021 3:3 0 PM CDT ECG 12-LEAD STAT 07/09/2021 3:10 PM CDT documented in this encounter Results * NM PHARM NUC STRESS TEST 1DAY (07/11/2021 11:17 AM CDT) Anatomical Region Laterality Modality Cardiac Nuclear Medicine 07/11/2021 8:47 AM CDT Narrative 07/11/2021 1:02 PM CDT ? Myocardial Perfusion Imaging ? Pat.Name: ??FORD, TYSON STEPHANIE ?Pat.ID: ?[id number] ? St.Date: ?? 07/11/2021 ? Refer.MD: ??Doni Chesterkeenan [id number] Exam Time: 8:47:00 AM ? Study Type:MARINO NC HT MUSCLE IMAGE SPECT MULTI Height: ?66in ?Weight: ?186lb ? BSA: ? 1.94 m2 ?Age: ??1970,51Y ? Sex: ? FEMALE ?Sonogrphr: Jonatan Simmons, MANAGER REQUIREMENTS ? Pat. Stat.:Inpatient ? Reason for Study: Chest pain, Shortness of breath History / Clinical: elevated D-dimer, Hypertension, Diabetes, Renal Insufficiency Procedures: ??Nuclear Stress Test with Lexiscan Race: ?-Swiss ? Surgery: ?? Echocardiogram ? ++++++++++++++++++++++++++++++++++++ SUMMARY: ++++++++++++++++++++++++++++++++++++ Stress conclusion: 1. ? Clinically negative. 2. ? Electrocardiographically negative stress test for ischemia. 3. ? Scintigraphic images to follow. Perfusion conclusion: 1. ??Good study quality. ??No motion correction was applied to images. Diaphragm attenuation is noted. ??Prone imaging was performed. 2. ??Normal myocardial perfusion SPECT imaging. ?? 3. ??Normal wall motion with an ejection fraction of 61%. ?? 4. ??Stress test with myocardial perfusion imaging shows overall low risk for a cardiac event. ++++++++++++++++++++++++++++++++++++ FINDINGS: ++++++++++++++++++++++++++++++++++++ Protocol: Lexiscan 0.4mg was given as a rapid injection IV over a ?period ??of 10 seconds with the radiopharmaceutical injected ?at ??20 seconds. The images were processed using the standard ?SPECT ??technique. ??A gated study was performed on the stress ?images. Impression: SPECT images demonstrate normal perfusion of normal ?intensity. Heart Size: The left ventricle is normal. LV Wall Motion: The LVEF is calculated to be 61%. Gated SPECT images ?reveal ??normal wall motion. Transient Ischemic Dilatation: The TID is 1.03. There is no evidence ?of ??Transient Ischemic Dilatation. ++++++++++++++++++++++++++++++++++++ STRESS: ++++++++++++++++++++++++++++++++++++ Baseline Vital Signs: ?Intervention ??Regadenoson ECG ?Normal sinus rhythm, PVC'sPeak Dose ??0.4 mg HR ? 89 ?Atropine 0 Rest BP ?122/73 ? Stress Test Results: Max. HR ?115 ? Pred. Max. Heart Rate (100%) 170 ?? % Target: ??68 % ? Max BP ? 133/80 ?O2 Sat ? 100 % Max RPP ?98321 ? Symptoms and Complications: Terminated Protocol completed Symptoms ?? Shortness of breath, Abdominal pain, Leg fatigue Complications None Stress ECG Interp No ischemic changes Signed 07/11/2021 01:02 PM Stacie Oconnell M.D. Procedure Note Stacie Oconnell MD - 07/11/2021 Myocardial Perfusion Imaging Pat.Name: TYSON YOUNGBLOOD Pat.ID: [id number] .Date: 07/11/2021 Refer.MD: Eduarda Chester [id number] Exam Time: 8:47:00 AM Study Type:MARINO ND HT MUSCLE IMAGE SPECT MULTI Height: 66in Weight: 186lb BSA: 1.94 m2 Age: 2 1970,51Y Sex: FEMALE Sonogrphr: JOSEPH ChatmanMT Pat. Stat.:Inpatient Reason for Study: Chest pain, Shortness of breath History / Clinical: elevated D-dimer, Hypertension, Diabetes, Renal Insufficiency Procedures: Nuclear Stress Test with Lexiscan Race: -Swiss Surgery: Echocardiogram ++++++++++++++++++++++++++++++++++++ SUMMARY: ++++++++++++++++++++++++++++++++++++ Stress conclusion: [...] 133/80 O2 Sat 100 % Max RPP 09424 Symptoms and Complications: Terminated Protocol completed Symptoms Shortness of breath, Abdominal pain, Leg fatigue Complications None Stress ECG Interp No ischemic changes Signed 07/11/2021 01:02 PM Stacie Oconnell M.D. Eduarda Chester MD NUC MED Final Result * (ABNORMAL) POCT glucose (07/11/2021 11:16 AM CDT) GLUCOSE POC 213(H) 70 - 99 mg/dL 07/11/2021 11:55 AM CDT [facility] 07/11/2021 11:1 6 AM CDT Eduarda Chester MD POCT ORDERABLES - DEVICE Final Result [facility] [address] [place] [address], * (ABNORMAL) COMPREHENSIVE METABOLIC PANEL (07/11/2021 6:55 AM CDT) Pathologist [facility] GLUCOSE 120(H) 70 - 99 MG/DL 07/11/2021 8:29 AM CDT [facility] BUN 16 7 - 18 MG/DL 07/11/2021 8:29 AM CDT [facility] CREATININE S/P/B 0.91 0.55 - 1.02 MG/DL 07/11/2021 8:29 AM CDT [facility] SODIUM S/P/B 138 136 - 145 MMOL/L 07/11/2021 8:29 AM CDT [facility] POTASSIUM S/P/B 4.0 3.5 - 5.1 MMOL/L 07/11/2021 8:29 AM CDT [facility] CHLORIDE S/P/B 106 100 - 108 MMOL/L 07/11/2021 8:29 AM CDT [facility] CO2 24.3 21 - 32 MMOL/L 07/11/2021 8:29 AM CDT [facility] CALCIUM S/P/B 9.1 8.5 - 10.1 MG/DL 07/11/2021 8:29 AM CDT [facility] BILIRUBIN TOTAL S/P/B 0.4 0.2 - 1.2 MG/DL 07/11/2021 8:29 AM CDT [facility] Comment: THIS ASSAY IS NOT RECOMMENDED FOR PATIENTS UNDERGOING TREATMENT WITH ELTROMBOPAG DUE TO THE POTENTIAL FOR FALSELY ELEVATED RESULTS. TOTAL PROTEIN S/P/B 8.1 6.4 - 8.2 G/DL 07/11/2021 8:29 AM CDT [facility] ALBUMIN S/P/B 3.1(L) 3.4 - 5.0 G/DL 07/11/2021 8:29 AM T [facility] AST 13(L) 15 - 37 U/L 07/11/2021 8:29 AM T [facility] ALT 18 14 - 55 U/L 07/11/2021 8:29 AM T [facility] ALKALINE PHOSPHATASE S/P/B 109 50 - 136 U/L 07/11/2021 8:29 AM T [facility] ANION GAP 7.7 5 - 15 MMOL/L 07/11/2021 8:29 AM T [facility] BUN CREATININE RATIO 17.5 6 - 26 07/11/2021 8:29 AM T [facility] A/G RATIO 0.6(L) 1.0 - 2.0 RATIO 07/11/2021 8:29 AM T [facility] GFR ESTIMATE 77(L) >90 ML/MIN/1.7 3 M2 07/11/2021 8:29 AM T [facility] Comment: NOTE: eGFR is not calculated for patients <18 years of age. This is an estimated GFR calculation using the new CKD EPI creatinine equation without race and so does not require a correction factor for race. This estimated GFR should not be used for calculating drug doses. 07/11/2021 6:55 AM CDT Eduarda Chester MD LABORATORY Final Result [facility] [address] [place] [address], [place] [phone] * (ABNORMAL) CBC W/DIFF AUTOMATED (07/11/2021 6:55 AM CDT) [facility] WBC 9.2 4.5 - 11.0 x10'3/uL 07/11/2021 7:49 AM CDT [facility] RBC 4.02(L) 4.20 - 5.40 x10'6/uL 07/11/2021 7:49 AM CDT [facility] HGB 12.2 12.0 - 16.0 G/DL 07/11/2021 7:49 AM CDT [facility] HCT 37.5(L) 38.0 - 48.0 % 07/11/2021 7:49 AM CDT [facility] MCV 93.3 81.0 - 99.0 FL 07/11/2021 7:49 AM CDT [facility] MCH 30.3 27.0 - 31.0 PG 07/11/2021 7:49 AM CDT [facility] MCHC 32.5 32.0 - 36.0 G/DL 07/11/2021 7:49 AM CDT [facility] RDW 13.2 11.5 - 14.5 % 07/11/2021 7:49 AM CDT [facility] PLT 270 130 - 400 x10'3/uL 07/11/2021 7:49 AM CDT [facility] MPV 11.4 9.3 - 12.2 FL 07/11/2021 7:49 AM CDT [facility] DIFFERENTIAL TYPE AUTOMATED DIFFERENTIAL 07/11/2021 7:49 AM CDT [facility] NEUTROPHILS % 56.8 % 07/11/2021 7:49 AM CDT [facility] LYMPHOCYTES % 36.0 % 07/11/2021 7:49 AM CDT [facility] MONOCYTES % 4.8 % 07/11/2021 7:49 AM CDT [facility] EOSINOPHILS 1.6 % 07/11/2021 7:49 AM CDT [facility] BASOPHILS 0.4 % 07/11/2021 7:49 AM CDT [facility] IMMATURE GRANS % 0.4 % 07/12/19 7:49 AM CDT [facility] ABS. NEUTROPHILS TOTAL 5.22 1.80 - 7.70 x10'3/uL 07/11/2021 7:49 AM CDT [facility] ABS. LYMPHOCYTES 3.31 1.00 - 4.80 x10'3/uL 07/11/2021 7:49 AM CDT [facility] ABS. MONOCYTES 0.44 0.24 - 0.86 x10'3/uL 07/11/2021 7:49 AM CDT [facility] ABS. EOSINOPHILS 0.15 0.04 - 0.36 x10'3/uL 07/11/2021 7:49 AM CDT [facility] ABS. BASOPHILS 0.04 0.01 - 0.08 x10'3/uL 07/11/2021 7:49 AM CDT [facility] ABS. IMMATURE GRANULOCYTES 0.04 0.00 - 0.49 x10'3/uL 07/11/2021 7:49 AM CDT [facility] 07/11/2021 6:55 AM CDT us Eduarda Chester MD LABORATORY Final Result [facility] [address] [place] [address], * PHOSPHORUS, INORGANIC PHOSPHATE (07/11/2021 6:55 AM CDT) PHOSPHORUS 4.0 2.5 - 4.9 MG/DL 07/11/2021 8:29 AM CDT [facility] 07/11/2021 6:55 AM CDT us Eduarda Chester MD LABORATORY Final Result [facility] [address] [place] [address], * (ABNORMAL) MAGNESIUM (07/11/2021 6:55 AM CDT) MAGNESIUM 1.7(L) 1.8 - 2.4 MG/DL 07/11/2021 8:29 AM CDT [facility] 07/11/2021 6:55 AM CDT us Eduarda Chester MD LABORATORY Final Result Performing Organization Address City/[facility]/ZIP Co de Phone Number [facility] [address] [place] [address], * (ABNORMAL) D-DIMER, QUANTITATIVE (07/11/2021 6:55 AM CDT) D-DIMER 929(HH) 0 - 500 ng{FEU}/mL 07/11/2021 8:09 AM CDT [facility] Comment: D-Dimer values less than or [...] false negative findings. Successful Call: DDIMR called 07/11/2021 08:10 AM to ABENA Extole[employer] A ([id number]/MARIE WILD) by [phone]. Read Back: Yes 07/11/2021 6:55 AM CDT us Eduarda Chester MD LABORATORY Final Result Performing Organization Address [facility] de Phone Number [facility] [address] [place] [address], * TROPONIN, QUANT (07/11/2021 6:55 AM CDT) TROPONIN I HIGH SENSITIVITY 6 <54 ng/L 07/11/2021 8:29 AM CDT [facility] Comment: HIGH DOSES OF BIOTIN, TROPONIN-SPECIFIC AUTOANTIBODIES, AND ANTIBODY THERAPY CONTAINING HAMA MAY INTERFERE WITH THIS TEST RESULT. CORRELATION TO CLINICAL HISTORY AND PRESENTATION RECOMMENDED. 07/11/2021 6:55 AM CDT us Eduarda Chester MD LABORATORY Final Result Performing Organization Address [facility] de Phone Number [facility] [address] [place] [address], [place] [phone] * (ABNORMAL) POCT glucose (07/11/2021 5:53 AM CDT) GLUCOSE POC 142(H) 70 - 99 mg/dL 07/11/2021 5:57 AM CDT [facility] 07/11/2021 5:53 AM CDT us Eduarda Chester MD POCT ORDERABLES - DEVICE Final Result Performing Organization Address [facility] de Phone Number [facility] [address] [place] [address], * (ABNORMAL) POCT glucose (07/10/2021 8:34 PM CDT) GLUCOSE POC 169(H) 70 - 99 mg/dL 07/10/2021 8:41 PM CDT [facility] 07/10/2021 8:34 PM CDT us Eduarda Chester MD POCT ORDERABLES - DEVICE Final Result [facility] [address] [place] [address], [place] [phone] * (ABNORMAL) POCT glucose (07/10/2021 3:38 PM CDT) GLUCOSE POC 242(H) 70 - 99 mg/dL 07/10/2021 4:23 PM CDT [facility] 07/10/2021 3:38 PM CDT us Eduarda Chester MD POCT ORDERABLES - DEVICE Final Result [facility] [address] [place] [address], [place] [phone] * TROPONIN, QUANT (07/10/2021 2:34 PM CDT) TROPONIN I HIGH SENSITIVITY 5 <54 ng/L 07/10/2021 3:49 PM CDT [facility] Comment: HIGH DOSES OF BIOTIN, TROPONIN-SPECIFIC AUTOANTIBODIES, AND ANTIBODY THERAPY CONTAINING HAMA MAY INTERFERE WITH THIS TEST RESULT. CORRELATION TO CLINICAL HISTORY AND PRESENTATION RECOMMENDED. 07/10/2021 2:34 PM CDT Eduarda Chester MD LABORATORY Final Result [facility] [address] [place] [address], * ECG 12 lead (07/10/2021 2:18 PM CDT) 07/10/2021 2:18 PM CDT Narrative [facility] - 07/10/2021 10:19 PM CDT ?[facility] ? [address] [facility] [place] ? Test Date: ?2021-07-10 Pat Name: ? TYSON YOUNGBLOOD ?Department: ?? 40 ? Room: ? G65710 Gender: ? Female ? Grind Operator: ?? [id number] : ?1970 ? Requested By: EDUARDA CHESTER Order Number: [id number] ? Reading : ?? Brianna Acosta ? Measurements Intervals ?[place] ? Rate: ? 88 ? P: ?49 NV: ? 179 ?QRS: ?11 QRSD: ? 83 ? T: ?-75 QT: ? 304 ? QTc: ?369 ? Interpretive Statements SINUS RHYTHM WITH FREQUENT VENTRICULAR PREMATURE COMPLEXES LOW QRS VOLTAGE IN PRECORDIAL LEADS NONSPECIFIC T-WAVE ABNORMALITY Compared to ECG 07/10/2021 05:27:01 Low QRS voltage now present T-wave abnormality still present Procedure Note Brianna Acosta MD - 07/10/2021 [facility] [address] [facility] Test Date: 2021-07-10 Pat Name: TYSON YOUNGBLOOD Department: 40 Room: [facility] Gender: Female Grind Operator: [id number] : 1970 Requested By: EDUARDA CHESTER Order Number: [id number] Reading MD: Brianna Acosta Measurements Intervals [place] Rate: 88 P: 49 NV: 179 QRS: 11 QRSD: 83 T: -75 QT: 304 QTc: 369 Interpretive Statements SINUS RHYTHM WITH FREQUENT VENTRICULAR PREMATURE COMPLEXES LOW QRS VOLTAGE IN PRECORDIAL LEADS NONSPECIFIC T-WAVE ABNORMALITY Compared to ECG 07/10/2021 05:27:01 Low QRS voltage now present T-wave abnormality still present Eduarda Chester MD ECG ORDERABLES Final Result Performing Organization Address City/[facility]/ZIP Co de Phone Number [facility] * (ABNORMAL) POCT glucose (07/10/2021 11:03 AM CDT) [facility] GLUCOSE POC 149(H) 70 - 99 mg/dL 07/10/2021 3:49 PM CDT [facility] 07/10/2021 11:0 3 AM CDT Eduarda Chester MD POCT ORDERABLES - DEVICE Final Result Performing Organization Address [facility] de Phone Number [facility] [address] [place] [address], * USE ECHOCARDIOGRAM W CON (07/10/2021 10:37 AM CDT) Anatomical Region Laterality Modality NA Echocardiogram 07/10/2021 8:23 AM CDT Narrative 07/10/2021 12:36 PM CDT ?Echocardiography Report Pat.Name: ??TYSON YOUNGBLOOD ?Pat.ID: ?[id number] ? St.Date: ?? 07/10/2021 ? Exam Time: 8:23:00 AM ? Study Type:ECHO WITH CARDIAC DOPPLER COMP Height: ?66in ? Weight: ?188.61lb ?BSA: ? 1.95 m2 ?Age: ??1970,51Y ? Sex: ? FEMALE ? BP: ?125/81 ?HR: ?87 bpm ? Sonogrphr: KALINA LOPEZ RDCS ? Reason for Study: Chest pain ? History / Clinical: elevated D-dimer, Hypertension Procedures: ??2D, M-mode, Doppler, Color Flow, Definity was used to enhance endocardial definition., Intraveneous saline contrast was used to help determine presence of intracardiac shunting. Race: ?-Swiss ? ++++++++++++++++++++++++++++++++++++ SUMMARY: ++++++++++++++++++++++++++++++++++++ The left ventricular systolic function is normal. Estimated left ventricular ejection fraction is 55-60%. Left ventricular diastolic function is normal. Wall motion appears normal in all segments. No significant valvular abnormality. ++++++++++++++++++++++++++++++++++++ FINDINGS: ++++++++++++++++++++++++++++++++++++ LV: ? The left ventricular size is normal. The left ventricular ?systolic ??function is normal. Estimated left ventricular ?ejection ??fraction is 55-60%. There is no left ventricular ?hypertrophy. ??Left ventricular diastolic function is normal. WM: ? Wall motion appears normal in all segments. RV: ? The right ventricular size is normal. Right ventricular ?systolic ??function is mildly depressed. IVS: ?Mild septal hypertrophy. LA: ? The left atrial size is normal. RA: ? Right atrial size is normal. IAS: ?Atrial septum appears intact. The agitated saline injection ?showed ??no clear evidence of shunting into the left atrium, ?consistent ??with no patent foramen ovale. SIMONE: ? No evidence of pericardial effusion. AO: ? Normal aortic root. PA: ? Estimated right atrial pressure of 8 mmHg. Unable to ?reliably ??quantitate pulmonary systolic pressure. SVn: ?Inferior vena cava is normal. Inferior vena cava shows <50% ?collapse ??with respiration consistent with normal right ?atrial ??pressure. Systemic veins not well visualized. AV: ? The aortic valve is trileaflet. No evidence of aortic valve ?stenosis. MV: ? No evidence of significant mitral regurgitation. No evidence ?of ??mitral valve stenosis. Mild thickening of mitral valve ?leaflets. PV: ? No evidence of pulmonic valve stenosis. No evidence of ?pulmonic ??regurgitation. Pulmonic valve not well visualized. TV: ? Structurally normal tricuspid valve. No evidence of ?tricuspid ??regurgitation. No evidence of tricuspid valve ?stenosis. ++++++++++++++++++++++++++++++++++++ MEASUREMENTS: ++++++++++++++++++++++++++++++++++++ ?DOPPLER LVOT ?? LVOTpkPG ? 4 mmHg ?LVOTmnPG ? 2 mmHg LVOTpkVel ?100 cm/s (70-110) LVOT SV ? 57 ml ?? LVOT TVI ?18 cm ? AV Forward Flow AV TVI ?24.9 cm ?AV pkPG ?8 mmHg AV pkVel ? 141 cm/s (100-170) Area (TVI) ?2.27 cm2 ??(3-5)* AV mnPG ?4 mmHg ?Area (Nadir) ?2.23 cm2 ??(3- 5)* MV Forward Flow MV DeTm ? 77 ms ?MV pkE ?82.6 cm/s (60-130) MV E/A ? 0.7 ? MV pkA ? 119 cm/s PV Forward Flow PV pkVel ?73.8 cm/s (60-90) ??PV AC ? 92 ms ?? PV pkPG ?2 mmHg ? Lat E' ?? Lat e ? 6.38 cm/s ? Lat E/E' ?? Lat E/e ? 12.9 ? Med E' ?? Med e ? 5.61 cm/s ? Med E/E' ?? Med E/e ? 14.7 ? Aortic Valve ?? Aortic Valve Ar ??1.16 ?Aortic Valve Ve ??0.71 ? PV Antegrade Flow Acceleration Sl ?? 742 cm/s2 ? Right Atrium ?? Hernandez's Disk ? 20 ? Right Ventricle ?? Right Ventricle ??8.01 cm/s ?2D Left Ventricle ?? LVIDd ? 3.89 cm ?? (3.6-5.2) LV ESV ?32.5 ml ?? LVIDs ?2.9 cm ?? (2.3-3.9) LV ESV ?46.7 ml ?? LngAxd ? 6.9 cm ?LVESV BP ?39.1 ml ?? LngAxd ?7.59 cm ?LV EF ? 59.7 % ?? LV EDV ?80.7 ml ?LV EF ? 57.2 % ?? LV EDV ? 109 ml ?LV EF BP ?60 % ?? LVEDV BP ?97.7 ml ?LV SV ? 48.2 ml ?? LngAxs ?5.82 cm ?LV SV ? 62.3 ml ?? LngAxs ?5.72 cm ?LV SV BP ?58.6 ml ?? LVPW ?? LVPWd ?0.907 cm ? Ventricular Septum ?? IVSd ? 0.953 cm ? Left Atrium ?? LA VOLBP ?47.3 ml ? LVOT ?? LVOT ? 2 cm ?LVOTArea ?3.14 cm2 Ratios ?? IVS LA Biplane LAVol I BP ?24.3 ml/m2 ? RA Single Plane Right Atrium MO ??9.77 mm ? Right Atrium Sy ??17.8 ml ?? Right Atrium Sy ?43 mm ? Right Atrium Sy ?? 9.1 ml/m2 Right Atrium Sy ??9.65 cm2 ? Right Ventricle ?? Right Ventricle ??37.7 mm ? Right Ventricle ??27.8 mm ?? Major Clifton ?59.9 mm ?MMODE TA ?? Tricuspid Annul ??14.2 mm ? Signed 07/10/2021 12:36 PM Brianna Acosta M.D. Procedure Note Brianna Acosta MD - 07/10/2021 Echocardiography Report Pat.Name: TYSON YOUNGBLOOD Pat.ID: [id number] .Date: 07/10/2021 Exam Time: 8:23:00 AM Study Type:ECHO WITH CARDIAC DOPPLER COMP Height: 66in Weight: 188.61lb BSA: 1.95 m2 Age: 2 1970,51Y Sex: FEMALE BP: 125/81 HR: 87 bpm Sonogrphr: KALINA LOPEZ [facility] Reason for Study: Chest pain History / Clinical: elevated D-dimer, Hypertension Procedures: 2D, M-mode, Doppler, Color Flow, Definity was used to enhance endocardial definition., Intraveneous saline contrast was used to help determine presence of intracardiac shunting. Race: -Swiss ++++++++++++++++++++++++++++++++++++ SUMMARY: ++++++++++++++++++++++++++++++++++++ The left ventricular systolic [...] 37.7 mm Right Ventricle 27.8 mm Major Clifton 59.9 mm MMODE TA Tricuspid Annul 14.2 mm Signed 07/10/2021 12:36 PM Brianna Acosta M.D. Eduarda Chester MD ECHO Final Result * (ABNORMAL) POCT glucose (07/10/2021 5:37 AM CDT) GLUCOSE POC 189(H) 70 - 99 mg/dL 07/10/2021 5:40 AM CDT [facility] 07/10/2021 5:37 AM CDT Eduarda Chester MD POCT ORDERABLES - DEVICE Final Result [facility] [address] [place] [address], * ECG 12 lead (07/10/2021 5:27 AM CDT) 07/10/2021 5:27 AM CDT Narrative [facility] - 07/10/2021 10:25 AM CDT ?[facility] [place] ? [address] [facility] ? Test Date: ?2021-07-10 Pat Name: ? TYSON YOUNGBLOOD ?Department: ?? 40 ? Room: ? [id number] Gender: ? Female ? Grind Operator: ?? [id number] : ?1970 ? Requested By: EDUARDA CHESTER Order Number: [id number] ? Reading MD: ?? Brianna Acosta ? Measurements Intervals ?[place] ? Rate: ? 86 ? P: ?45 NV: ? 207 ?QRS: ?19 QRSD: ? 85 ? T: ?32 QT: ? 378 ? QTc: ?454 ? Interpretive Statements SINUS RHYTHM WITH OCCASIONAL VENTRICULAR PREMATURE COMPLEXES NONSPECIFIC T-WAVE ABNORMALITY Compared to ECG 07/10/2021 00:19:31 No significant changes Procedure Note Brianna Acosta MD - 07/10/[address] Test Date: 2021-07-10 Pat Name: TYSON YOUNGBLOOD Department: 40 Room: [facility] Gender: Female Grind Operator: [id number] : 1970 Requested By: EDUARDA CHESTER Order Number: [id number] Reading MD: Brianna Acosta Measurements Intervals [place] Rate: 86 P: 45 NV: 207 QRS: 19 QRSD: 85 T: 32 QT: 378 QTc: 454 Interpretive Statements SINUS RHYTHM WITH OCCASIONAL VENTRICULAR PREMATURE COMPLEXES NONSPECIFIC T-WAVE ABNORMALITY Compared to ECG 07/10/2021 00:19:31 No significant changes Eduarda Chester MD ECG ORDERABLES Final Result Performing Organization Address City/[facility]/ZIP Co de Phone Number [facility] ([facility]) RAD * TROPONIN, QUANT (07/10/2021 5:23 AM CDT) [facility] TROPONIN I HIGH SENSITIVITY 7 <54 ng/L 07/10/2021 6:09 AM CDT [facility] Comment: HIGH DOSES OF BIOTIN, TROPONIN-SPECIFIC AUTOANTIBODIES, AND ANTIBODY THERAPY CONTAINING HAMA MAY INTERFERE WITH THIS TEST RESULT. CORRELATION TO CLINICAL HISTORY AND PRESENTATION RECOMMENDED. 07/10/2021 5:23 AM CDT Eduarda Chester MD LABORATORY Final Result [facility] [address] [place] [address], [place] [phone] * (ABNORMAL) D-DIMER, QUANTITATIVE (07/10/2021 5:23 AM CDT) Pathologist [facility] D-DIMER 1,022(HH) 0 - 500 ng{FEU}/mL 07/10/2021 7:59 AM CDT [facility] Comment: D-Dimer values less than or [...] false negative findings. Successful Call: DDIMR called 07/10/2021 08:00 AM to [employer] A ([id number] by [id number]. Read Back: Yes 07/10/2021 5:23 AM CDT Eduarda Chester MD LABORATORY Final Result [facility] [address] [place] [address], * (ABNORMAL) LIPID PANEL (07/10/2021 5:23 AM CDT) CHOLESTEROL 150 <200 MG/DL 07/10/2021 6:09 AM CDT [facility] TRIGLYCERIDES 333(H) <150 MG/DL 07/10/2021 6:09 AM CDT [facility] HDL 31(L) >40.0 MG/DL 07/10/2021 6:09 AM CDT [facility] LDL (CALCULATED) 52 <100 MG/DL 07/10/2021 6:09 AM CDT [facility] NON HDL CHOLESTEROL 119 <130 MG/DL 07/10/2021 6:09 AM CDT [facility] CHOL/HDL RATIO 4.8(H) 0.0 - 4.5 07/10/2021 6:09 AM CDT [facility] VLDL CALCULATION 67(H) 5 - 55 MG/DL 07/10/2021 6:09 AM CDT [facility] LIPID INTERPRETATION 07/10/2021 6:09 AM CDT [facility] Comment: NIH CONCENSUS REPORT RECOMMENDATIONS: ?ADULT ?CHILD ??LOW RISK: ?CHOLESTEROL ? <200 ? <170 ?TRIGLYCERIDE ?<150 ?--- ?HDL ? >=60 ?--- ?LDL ? <100 ? <110 ??BORDERLINE: ?CHOLESTEROL ? 200-239 ?? 170-199 ?TRIGLYCERIDE ?150-199 ? --- ?HDL ?40-59 ?--- ?LDL ? 100-159 ?? 110-129 ??HIGH RISK: ?CHOLESTEROL ? >=240 ?>=200 ?TRIGLYCERIDE ?>=200 ? --- ?HDL ?<40 ?--- ?LDL ? >=160 ?>=130 07/10/2021 5:23 AM CDT Eduarda Chester MD LABORATORY Final Result [facility] [address] [place] [address], [place] [phone] * (ABNORMAL) MAGNESIUM (07/10/2021 5:23 AM CDT) MAGNESIUM 1.6(L) 1.8 - 2.4 MG/DL 07/10/2021 6:09 AM CDT [facility] 07/10/2021 5:23 AM CDT Eduarda Chester MD LABORATORY Final Result Performing Organization Address [facility] Co de Phone Number [facility] [address] [place] [address], [place] [phone] * (ABNORMAL) COMPREHENSIVE METABOLIC PANEL (07/10/2021 5:23 AM CDT) GLUCOSE 183(H) 70 - 99 MG/DL 07/10/2021 6:09 AM CDT [facility] BUN 13 7 - 18 MG/DL 07/10/2021 6:09 AM CDT [facility] CREATININE S/P/B 0.82 0.55 - 1.02 MG/DL 07/10/2021 6:09 AM CDT [facility] SODIUM S/P/B 139 136 - 145 MMOL/L 07/10/2021 6:09 AM CDT [facility] POTASSIUM S/P/B 3.4(L) 3.5 - 5.1 MMOL/L 07/10/2021 6:09 AM CDT [facility] CHLORIDE S/P/B 106 100 - 108 MMOL/L 07/10/2021 6:09 AM CDT [facility] CO2 26.9 21 - 32 MMOL/L 07/10/2021 6:09 AM T [facility] CALCIUM S/P/B 8.6 8.5 - 10.1 MG/DL 07/10/2021 6:09 AM T [facility] BILIRUBIN TOTAL S/P/B 0.3 0.2 - 1.2 MG/DL 07/10/2021 6:09 AM T [facility] Comment: THIS ASSAY IS NOT RECOMMENDED FOR PATIENTS UNDERGOING TREATMENT WITH ELTROMBOPAG DUE TO THE POTENTIAL FOR FALSELY ELEVATED RESULTS. TOTAL PROTEIN S/P/B 7.5 6.4 - 8.2 G/DL 07/10/2021 6:09 AM T [facility] ALBUMIN S/P/B 2.8(L) 3.4 - 5.0 G/DL 07/10/2021 6:09 AM T [facility] AST 16 15 - 37 U/L 07/10/2021 6:09 AM [facility] ALT 20 14 - 55 U/L 07/10/2021 6:09 AM [facility] ALKALINE PHOSPHATASE S/P/B 101 50 - 136 U/L 07/10/2021 6:09 AM T [facility] ANION GAP 6.1 5 - 15 MMOL/L 07/10/2021 6:09 AM T [facility] BUN CREATININE RATIO 16.0 6 - 26 07/10/2021 6:09 AM T [facility] A/G RATIO 0.6(L) 1.0 - 2.0 RATIO 07/10/2021 6:09 AM [facility] GFR ESTIMATE 87(L) >90 ML/MIN/1.7 3 M2 07/10/2021 6:09 AM T [facility] Comment: NOTE: eGFR is not calculated for patients <18 years of age. This is an estimated GFR calculation using the new CKD EPI creatinine equation without race and so does not require a correction factor for race. This estimated GFR should not be used for calculating drug doses. 07/10/2021 5:23 AM CDT us Eduarda Chester MD LABORATORY Final Result Performing Organization Address City/[facility]/ZIP Co de Phone Number [facility] [address] [place] [address], [place] [phone] * PARTIAL THROMBOPLASTIN TIME,PTT (07/10/2021 5:23 AM CDT) PTT 32.1 25.1 - 36.5 SEC 07/10/2021 6:03 AM CDT [facility] 07/10/2021 5:23 AM CDT us Eduarda Chester MD LABORATORY Final Result Performing Organization Address [facility] Co de Phone Number [facility] [address] [place] [address], [place] [phone] * PROTHROMBIN TIME, VENOUS (07/10/2021 5:23 AM CDT) PROTIME 12.9 10.2 - 12.9 SEC 07/10/2021 6:03 AM CDT [facility] INR 1.1 07/10/2021 6:03 AM CDT [facility] Comment: Recommended INR Therapeutic Goals: ??2.0-3.0 Routine Therapy ??2.5-3.5 Mechanical Prosthetic Valves (High Risk) 07/10/2021 5:23 AM CDT us Eduarda Chester MD LABORATORY Final Result [facility] [address] [place] [address], [place] [phone] * (ABNORMAL) CBC W/DIFF AUTOMATED (07/10/2021 5:23 AM CDT) [facility] WBC 9.6 4.5 - 11.0 x10'3/uL 07/10/2021 6:08 AM CDT [facility] RBC 3.50(L) 4.20 - 5.40 x10'6/uL 07/10/2021 6:08 AM CDT [facility] HGB 10.6(L) 12.0 - 16.0 G/DL 07/10/2021 6:08 AM CDT [facility] HCT 31.6(L) 38.0 - 48.0 % 07/10/2021 6:08 AM CDT [facility] MCV 90.3 81.0 - 99.0 FL 07/10/2021 6:08 AM CDT [facility] MCH 30.3 27.0 - 31.0 PG 07/10/2021 6:08 AM CDT [facility] MCHC 33.5 32.0 - 36.0 G/DL 07/10/2021 6:08 AM CDT [facility] RDW 13.3 11.5 - 14.5 % 07/10/2021 6:08 AM CDT [facility] PLT 249 130 - 400 x10'3/uL 07/10/2021 6:08 AM CDT [facility] MPV 11.4 9.3 - 12.2 FL 07/10/2021 6:08 AM CDT [facility] DIFFERENTIAL TYPE AUTOMATED DIFFERENTIAL 07/10/2021 6:08 AM CDT [facility] NEUTROPHILS % 52.7 % 07/10/2021 6:08 AM CDT [facility] LYMPHOCYTES % 41.3 % 07/10/2021 6:08 AM CDT [facility] MONOCYTES % 4.5 % 07/10/2021 6:08 AM CDT [facility] EOSINOPHILS 0.7 % 07/10/2021 6:08 AM CDT [facility] BASOPHILS 0.5 % 07/10/2021 6:08 AM CDT [facility] IMMATURE GRANS % 0.3 % 07/11/19 6:08 AM CDT [facility] ABS. NEUTROPHILS TOTAL 5.05 1.80 - 7.70 x10'3/uL 07/10/2021 6:08 AM CDT [facility] ABS. LYMPHOCYTES 3.96 1.00 - 4.80 x10'3/uL 07/10/2021 6:08 AM CDT [facility] ABS. MONOCYTES 0.43 0.24 - 0.86 x10'3/uL 07/10/2021 6:08 AM CDT [facility] ABS. EOSINOPHILS 0.07 0.04 - 0.36 x10'3/uL 07/10/2021 6:08 AM CDT [facility] ABS. BASOPHILS 0.05 0.01 - 0.08 x10'3/uL 07/10/2021 6:08 AM CDT [facility] ABS. IMMATURE GRANULOCYTES 0.03 0.00 - 0.49 x10'3/uL 07/10/2021 6:08 AM T [facility] 07/10/2021 5:23 AM CDT Eduarda Chester MD LABORATORY Final Result [facility] [address] [place] [address], * TROPONIN, QUANT (07/10/2021 12:47 AM CDT) TROPONIN I HIGH SENSITIVITY 5 <54 ng/L 07/10/2021 1:26 AM CDT [facility] Comment: HIGH DOSES OF BIOTIN, TROPONIN-SPECIFIC AUTOANTIBODIES, AND ANTIBODY THERAPY CONTAINING HAMA MAY INTERFERE WITH THIS TEST RESULT. CORRELATION TO CLINICAL HISTORY AND PRESENTATION RECOMMENDED. 07/10/2021 12:4 7 AM CDT Eduarda Chester MD LABORATORY Final Result Performing Organization Address [facility] de Phone Number [address] [address], * ECG 12 lead (07/10/2021 12:19 AM CDT) 07/10/2021 12:1 9 AM CDT Narrative [facility] ([facility] RAD - 07/10/2021 10:25 AM CDT ?[facility] ? [address] [facility] ? Test Date: ?2021-07-10 Pat Name: ? TYSON FORD ?Department: ?? 40 ? Room: ? [id number] Gender: ? Female ? Grind Operator: ?? [id number] : ?1970 ? Requested By: MAAROKEENAN MORMON Order Number: [id number] ? Reading MD: ?? Brianna Dave ? Measurements Intervals ?[place] ? Rate: ? 89 ? P: ?48 NV: ? 193 ?QRS: ?26 QRSD: ? 90 ? T: ?-10 QT: ? 378 ? QTc: ?461 ? Interpretive Statements SINUS RHYTHM WITH FREQUENT VENTRICULAR PREMATURE COMPLEXES NONSPECIFIC T-WAVE ABNORMALITY ABNORMAL RHYTHM ECG Compared to ECG 07/09/2021 17:11:30 No significant changes Procedure Note Brianna Acosta MD - 07/10/[address] Test Date: 2021-07-10 Pat Name: TYSON YOUNGBLOOD Department: 40 Room: [id number] Gender: Female Grind Operator: [id number] : 1970 Requested By: EDUARDA CHESTER Order Number: [id number] Reading MD: Brianna Acosta Measurements Intervals [place] Rate: 89 P: 48 NV: 193 QRS: 26 QRSD: 90 T: -10 QT: 378 QTc: 461 Interpretive Statements SINUS RHYTHM WITH FREQUENT VENTRICULAR PREMATURE COMPLEXES NONSPECIFIC T-WAVE ABNORMALITY ABNORMAL RHYTHM ECG Compared to ECG 07/09/2021 17:11:30 No significant changes Eduarda Chester MD ECG ORDERABLES Final Result Performing Organization Address City/[facility]/ZIP Co de Phone Number [facility] ([facility]) RAD * (ABNORMAL) POCT glucose (07/09/2021 11:35 PM CDT) GLUCOSE POC 173(H) 70 - 99 mg/dL 07/09/2021 11:39 PM CDT [facility] 07/09/2021 11:3 5 PM CDT Eduarda Chester MD POCT ORDERABLES - DEVICE Final Result Performing Organization Address [facility] Co de Phone Number [facility] [address] [place] [address], [place] [phone] * USV JOANIE DUPLEX LOW EXT NOHEMY (07/09/2021 8:45 PM CDT) Anatomical Region Laterality Modality Extremity Vascular Ultraso und 07/09/2021 8:29 PM CDT Narrative 07/12/2021 1:05 AM CDT ?VENOUS DUPLEX IMAGING ?BILATERAL LOWER EXTREMITY ? VASCULAR LAB Pat.Name: ??TYSON YOUNGBLOOD ?Pat.ID: ?[id number] ? St.Date: ?? 07/09/2021 ? Refer.MD: ??[id number], Elissa gilman Exam Time: 8:29:00 PM ? Study Type:MARINO VS Venous Duplex Legs NOHEMY ??Age: ??1970,51Y ? Sex: ? FEMALE ? Sonogrphr: Reynaldo Blue RVT ?Pat. Stat.:Inpatient ? Room: ?ED 20 ? History / Clinical:elevated D-dimer Procedures: Danielle scale, Color Doppler imaging, Doppler Spectral Analysis Race: ?B ? ++++++++++++++++++++++++++++++++++++ SUMMARY: ++++++++++++++++++++++++++++++++++++ Right leg: ??There are NO apparent, deep or superficial vein, ACUTE character venous filling defects visualized in the femoral, popliteal, deep calf or proximal saphenous veins. Resting venous flow is normal phasic proximally. ??No valve reflux with compression maneuvers is detected in the femoral and popliteal veins. Left leg: ??There are NO apparent, deep or superficial vein, ACUTE character ??venous filling defects visualized in the femoral, popliteal, deep calf or proximal saphenous veins. ? Resting venous flow is normal phasic proximally. ??No valve reflux with compression maneuvers is detected in the femoral and popliteal veins. CONCLUSION: ? Normal study bilateral lower extremity, with no evidence of acute deep or superficial vein thrombosis. ?? There is no significant reflux detected. ++++++++++++++++++++++++++++++++++++ FINDINGS: ++++++++++++++++++++++++++++++++++++ Signed 07/12/2021 01:05 AM Joel Santiago M.D. Procedure Note Joel Santiago MD - 07/12/2021 VENOUS DUPLEX IMAGING BILATERAL LOWER EXTREMITY VASCULAR LAB Pat.Name: TYSON YOUNGBLOOD Pat.ID: [id number] .Date: 07/09/2021 : [id number], Elissa gilman Exam Time: 8:29:00 PM Study [...] Signed 07/12/2021 01:05 AM Joel Santiago M.D. Eduarda Chester MD [facility] Final Result * CTA CHEST (07/09/2021 7:26 PM CDT) Anatomical Region Laterality Modality Chest Computed Tomogra phy 07/09/2021 7:29 PM CDT Impressions 07/09/2021 7:34 PM CDT =====IMPRESSION:===== 1. No pulmonary thromboembolic disease. 2. No CT findings of an acute abnormality within the chest 3. Partially visualized right hydronephrosis, better characterized on the prior CT abdomen and pelvis examination from 04/15/2021 Ordered By: EDUARDA CHESTER Interpreted By: Hubert Martínez MD, 07/09/2021 7:29 PM Narrative 07/09/2021 7:34 PM CDT EXAMINATION: CTA CHEST WITH CONTRAST EXAM DATE/TIME: 07/09/2021 7:10 PM REASON FOR EXAM: Left-sided chest pain COMPARISON: CT chest 04/28/2019 TECHNIQUE: Computed tomography angiography was performed of the chest after administration of intravenous contrast, 80mL IOPAMIDOL 76 % IV SOLN, according to routine protocol. Additional 3-D reconstructions and postprocessing were performed independently by the attending radiologist and a separate dedicated 3-D workstation. A dose lowering technique was used [...] better characterized on the prior CT abdomen pelvis examination from 04/15/2021. There is no acute fracture nor destructive process involving the visualized osseous structures. Procedure Note Hubert Martínez MD - 07/09/2021 EXAMINATION: CTA CHEST WITH CONTRAST EXAM DATE/TIME: 07/09/2021 7:10 PM REASON FOR EXAM: Left-sided chest pain COMPARISON: CT chest 04/28/2019 TECHNIQUE: Computed tomography angiography was performed of the chestafter administration of intravenous contrast, 80mL IOPAMIDOL 76 % IV SOLN,according to routine protocol. Additional 3-D reconstructions andpostprocessing were performed independently by the attending radiologistand a separate dedicated 3-D workstation. A dose lowering technique wasused for this procedure, which may include, but is not limited to, dosereduction technique, automated exposure control, iterative reconstruction,ALARA (As Low As Reasonably Achievable), or Image Gently techniques. FINDINGS: The pulmonary arteries are well-opacified there is no pulmonarythromboembolic disease. There is no focal pulmonary consolidation. Thereis no pleural effusion. There is no pneumothorax. The heart size isnormal. There is no pericardial abnormality. The caliber of the thoracicaorta is normal. Partially visualized right hydronephrosis, bettercharacterized on the prior CT abdomen pelvis examination from 04/15/2021.There is no acute fracture nor destructive process involving thevisualized osseous structures. =====IMPRESSION:===== 1. No pulmonary thromboembolic disease. 2. No CT findings of an acute abnormality within the chest 3. Partially visualized right hydronephrosis, better characterized on theprior CT abdomen and pelvis examination from 04/15/2021 Ordered By: EDUARDA CHESTER Interpreted By: Hubert Martínez MD, 07/09/2021 7:29 PM Eduarda Chester MD CT Final Result * (ABNORMAL) D-DIMER, QUANTITATIVE (07/09/2021 6:13 PM CDT) D-DIMER 1,050(HH) 0 - 500 ng{FEU}/mL 07/09/2021 6:46 PM CDT [facility] Comment: D-Dimer values less than or [...] false negative findings. Successful Call: DDIMR called 07/09/2021 06:49 PM to EMERGENCY ROOM ([id number]/FELISHA MARION) by [id number]. 07/09/2021 6:13 PM CDT Janneth MARIE LABORATORY Final Result [facility] [address] [place] [address], [place] [phone] * TROPONIN, QUANT (07/09/2021 6:13 PM CDT) TROPONIN I HIGH SENSITIVITY 5 <54 ng/L 07/09/2021 6:49 PM CDT [facility] Comment: HIGH DOSES OF BIOTIN, TROPONIN-SPECIFIC AUTOANTIBODIES, AND ANTIBODY THERAPY CONTAINING HAMA MAY INTERFERE WITH THIS TEST RESULT. CORRELATION TO CLINICAL HISTORY AND PRESENTATION RECOMMENDED. 07/09/2021 6:13 PM CDT Kristel Gay COAL TRAMMER LABORATORY Final Result [facility] [address] [place] [address], * ECG 12 lead (07/09/2021 5:11 PM CDT) 07/09/2021 5:11 PM CDT Narrative [facility] ([facility] - 07/09/2021 6:08 PM CDT ?[facility] ? [address] [facility] ? Test Date: ?2021-07-09 Pat Name: ? TYSON FORD ?Department: ?? 41 ? Room: ? EXAM20 Gender: ? Female ? Grind Operator: ?? AR : ?1970 ? Requested By: KRISTEL SUNSHINER Order Number: [id number] ? Reading : ?? Brianna Acosta ? Measurements Intervals ?[place] ? Rate: ? 96 ? P: ?36 NV: ? 176 ?QRS: ?10 QRSD: ? 86 ? T: ?0 QT: ? 298 ? QTc: ?376 ? Interpretive Statements SINUS RHYTHM WITH FREQUENT VENTRICULAR PREMATURE COMPLEXES MODERATE VOLTAGE CRITERIA FOR LVH, CONSIDER NORMAL VARIANT NONSPECIFIC T-WAVE ABNORMALITY ABNORMAL RHYTHM ECG Compared to ECG 07/09/2021 15:10:55 No significant changes Procedure Note Brianna Acosta MD - 07/09/[address] Test Date: 2021-07-09 Pat Name: TYSON YOUNGBLOOD Department: 41 Room: [facility] Gender: Female Grind Operator: KHAI : 1970 Requested By: KRISTEL GAY Order Number: [id number] Reading MD: Brianna Acosta Measurements Intervals [place] Rate: 96 P: 36 NV: 176 QRS: 10 QRSD: 86 T: 0 QT: 298 QTc: 376 Interpretive Statements SINUS RHYTHM WITH FREQUENT VENTRICULAR PREMATURE COMPLEXES MODERATE VOLTAGE CRITERIA FOR LVH, CONSIDER NORMAL VARIANT NONSPECIFIC T-WAVE ABNORMALITY ABNORMAL RHYTHM ECG Compared to ECG 07/09/2021 15:10:55 No significant changes us Kristel Gay COAL TRAMMER ECG ORDERABLES Final Result Performing Organization Address [facility]/ZIP Co de Phone Number [facility] ([facility]) RAD * TSH W/REFLEX (07/09/2021 3:45 PM CDT) TSH 1.990 0.358 - 3.74 uIU/ML 07/10/2021 12:02 AM CDT [facility] Comment: HIGH DOSES OF BIOTIN MAY INTERFERE WITH THIS TEST RESULT. CORRELATION TO CLINICAL HISTORY AND PRESENTATION RECOMMENDED. FREE T4 NOT INDICATED 07/09/2021 3:45 PM CDT us Eduarda Chester MD LABORATORY Final Result [facility] [address] [place] [address], [place] [phone] * (ABNORMAL) HEMOGLOBIN, GLYCATED (07/09/2021 3:45 PM CDT) HGB A1C 7.8(H) <5.7 % 07/09/2021 11:58 PM CDT [facility] Comment: ADA GUIDELINES 2010 5.7 TO 6.4% INCREASED RISK OF DIABETES > OR = 6.5% CONSISTENT WITH DIABETES ESTIMATED AVG GLUCOSE 177 mg/dL 07/09/2021 11:58 PM CDT [facility] 07/09/2021 3:45 PM CDT Eduarda Chester MD LABORATORY Final Result Performing Organization Address City/[facility]/ZIP Co de Phone Number [facility] [address] [place] [address], [place] [phone] * TROPONIN, QUANT (07/09/2021 3:45 PM CDT) TROPONIN I HIGH SENSITIVITY 5 <54 ng/L 07/09/2021 4:42 PM CDT [facility] Comment: HIGH DOSES OF BIOTIN, TROPONIN-SPECIFIC AUTOANTIBODIES, AND ANTIBODY THERAPY CONTAINING HAMA MAY INTERFERE WITH THIS TEST RESULT. CORRELATION TO CLINICAL HISTORY AND PRESENTATION RECOMMENDED. 07/09/2021 3:45 PM CDT Kristel Gay APRN LABORATORY Final Result Performing Organization Address [facility] Co de Phone Number [facility] [address] [place] [address], [place] [phone] * (ABNORMAL) COMPREHENSIVE METABOLIC PANEL (07/09/2021 3:45 PM CDT) GLUCOSE 167(H) 70 - 99 MG/DL 07/09/2021 4:42 PM CDT [facility] BUN 15 7 - 18 MG/DL 07/09/2021 4:42 PM CDT [facility] CREATININE S/P/B 1.18(H) 0.55 - 1.02 MG/DL 07/09/2021 4:42 PM CDT [facility] SODIUM S/P/B 139 136 - 145 MMOL/L 07/09/2021 4:42 PM CDT [facility] POTASSIUM S/P/B 3.7 3.5 - 5.1 MMOL/L 07/09/2021 4:42 PM CDT [facility] CHLORIDE S/P/B 104 100 - 108 MMOL/L 07/09/2021 4:42 PM CDT [facility] CO2 29.5 21 - 32 MMOL/L 07/09/2021 4:42 PM CDT [facility] CALCIUM S/P/B 9.1 8.5 - 10.1 MG/DL 07/09/2021 4:42 PM CDT [facility] BILIRUBIN TOTAL S/P/B 0.4 0.2 - 1.2 MG/DL 07/09/2021 4:42 PM CDT [facility] Comment: THIS ASSAY IS NOT RECOMMENDED FOR PATIENTS UNDERGOING TREATMENT WITH ELTROMBOPAG DUE TO THE POTENTIAL FOR FALSELY ELEVATED RESULTS. TOTAL PROTEIN S/P/B 8.9(H) 6.4 - 8.2 G/DL 07/09/2021 4:42 PM CDT [facility] ALBUMIN S/P/B 3.5 3.4 - 5.0 G/DL 07/09/2021 4:42 PM CDT [facility] AST 19 15 - 37 U/L 07/09/2021 4:42 PM CDT [facility] ALT 19 14 - 55 U/L 07/09/2021 4:42 PM CDT [facility] ALKALINE PHOSPHATASE S/P/B 120 50 - 136 U/L 07/09/2021 4:42 PM CDT [facility] ANION GAP 5.5 5 - 15 MMOL/L 07/09/2021 4:42 PM CDT [facility] BUN CREATININE RATIO 12.7 6 - 26 07/09/2021 4:42 PM CDT [facility] A/G RATIO 0.6(L) 1.0 - 2.0 RATIO 07/09/2021 4:42 PM CDT [facility] GFR ESTIMATE 56(L) >90 ML/MIN/1.7 3 M2 07/09/2021 4:42 PM CDT [facility] Comment: NOTE: eGFR is not calculated for patients <18 years of age. This is an estimated GFR calculation using the new CKD EPI creatinine equation without race and so does not require a correction factor for race. This estimated GFR should not be used for calculating drug doses. 07/09/2021 3:45 PM CDT [facility] Final Result [facility] [address] [place] [address], [place] [phone] * (ABNORMAL) CBC W/DIFF AUTOMATED (07/09/2021 3:45 PM CDT) WBC 10.6 4.5 - 11.0 x10'3/uL 07/09/2021 4:08 PM CDT [facility] RBC 3.93(L) 4.20 - 5.40 x10'6/uL 07/09/2021 4:08 PM CDT [facility] HGB 12.0 12.0 - 16.0 G/DL 07/09/2021 4:08 PM CDT [facility] LAB HCT 35.2(L) 38.0 - 48.0 % 07/09/2021 4:08 PM CDT [facility] MCV 89.6 81.0 - 99.0 FL 07/09/2021 4:08 PM CDT [facility] MCH 30.5 27.0 - 31.0 PG 07/09/2021 4:08 PM CDT [facility] MCHC 34.1 32.0 - 36.0 G/DL 07/09/2021 4:08 PM CDT [facility] RDW 13.2 11.5 - 14.5 % 07/09/2021 4:08 PM CDT [facility] PLT 282 130 - 400 x10'3/uL 07/09/2021 4:08 PM CDT [facility] MPV 11.2 9.3 - 12.2 FL 07/09/2021 4:08 PM CDT [facility] DIFFERENTIAL TYPE AUTOMATED DIFFERENTIAL 07/09/2021 4:08 PM CDT [facility] NEUTROPHILS % 64.1 % 07/09/2021 4:08 PM CDT [facility] LYMPHOCYTES % 29.6 % 07/09/2021 4:08 PM CDT [facility] MONOCYTES % 4.6 % 07/09/2021 4:08 PM CDT [facility] EOSINOPHILS 0.6 % 07/09/2021 4:08 PM CDT [facility] BASOPHILS 0.5 % 07/09/2021 4:08 PM CDT [facility] IMMATURE GRANS % 0.6 % 07/10/19 4:08 PM CDT [facility] ABS. NEUTROPHILS TOTAL 6.78 1.80 - 7.70 x10'3/uL 07/09/2021 4:08 PM CDT [facility] ABS. LYMPHOCYTES 3.13 1.00 - 4.80 x10'3/uL 07/09/2021 4:08 PM CDT [facility] ABS. MONOCYTES 0.49 0.24 - 0.86 x10'3/uL 07/09/2021 4:08 PM CDT [facility] ABS. EOSINOPHILS 0.06 0.04 - 0.36 x10'3/uL 07/09/2021 4:08 PM CDT [facility] ABS. BASOPHILS 0.05 0.01 - 0.08 x10'3/uL 07/09/2021 4:08 PM CDT [facility] ABS. IMMATURE GRANULOCYTES 0.06 0.00 - 0.49 x10'3/uL 07/09/2021 4:08 PM CDT [facility] 07/09/2021 3:45 PM CDT us Kristel Gay [facility] Final Result Performing Organization Address City/State/[facility] Co de Phone Number [facility] [address] [place] [address], [place] [phone] * XR CHEST PORTABLE (07/09/2021 3:30 PM CDT) Anatomical Region Laterality Modality Chest Radiographic Shelli ging 07/09/2021 3:31 PM CDT Impressions 07/09/2021 3:32 PM CDT IMPRESSION: ======== ?? 1. ??No acute cardiopulmonary findings within limitations of exam Referred By: ?? Interpreted By: Sanchez Pate MD, 07/09/2021 3:31 PM Narrative 07/09/2021 3:32 PM CDT Examination: Chest Radiograph, 1 view Exam Date/Time: 07/09/2021 3:23 PM Reason For Exam: ??Chest pain ?? Constipation for the past 4 days radiating to the left shoulder and neck. Comparison: 04/15/2021 chest radiograph Technique: Single AP view of the chest. Findings: ??Heart size stable. ??Pulmonary vascularity within normal limits. ??No large effusion or pneumothorax. ??No convincing focal infiltrate or consolidative change. ======== Procedure Note Sanchez Pate MD - 07/09/2021 Examination: Chest Radiograph, 1 view Exam Date/Time: 07/09/2021 3:23 PM Reason For Exam: Chest pain Constipation for the past 4 days radiating to the left shoulder andneck. Comparison: 04/15/2021 chest radiograph Technique: Single AP view of the chest. Findings: Heart size stable. Pulmonary vascularity within normal limits.No large effusion or pneumothorax. No convincing focal infiltrate orconsolidative change. ======== IMPRESSION: ======== 1. No acute cardiopulmonary findings within limitations of exam Referred By: Interpreted By: Sanchez Pate MD, 07/09/2021 3:31 PM Kristel Gay [facility] Final Result * ECG 12 lead (07/09/2021 3:10 PM CDT) 07/09/2021 3:10 PM CDT Narrative [facility] - 07/09/2021 6:08 PM CDT [facility] ? [address] [place] ? Test Date: ?2021-07-09 Pat Name: ? TYSON YOUNGBLOOD ?Department: ?? 41 ? Room: ? EXAM20 Gender: ? Female ? Grind Operator: ?? : ?1970 ? Requested By: KRISTEL SUNSHINER Order Number: [id number] ? Reading MD: ?? Brianna Dave ? Measurements Intervals ?[place] ? Rate: ? 95 ? P: ?45 NV: ? 171 ?QRS: ?17 QRSD: ? 79 ? T: ?32 QT: ? 360 ? QTc: ?453 ? Interpretive Statements SINUS RHYTHM WITH OCCASIONAL VENTRICULAR PREMATURE COMPLEXES NONSPECIFIC T-WAVE ABNORMALITY Compared to ECG 04/15/2021 22:40:25 Ventricular premature complex(es) now present T-wave abnormality still present Procedure Note Brianna Acosta MD - 07/09/20[address] [facility] [place] Test Date: 2021-07-09 Pat Name: TYSON YOUNGBLOOD Department: Room: [facility] Gender: Female Grind Operator: : 1970 Requested By: KRISTEL GAY Order Number: [id number] Reading MD: Brianna Acosta Measurements Intervals [place] Rate: 95 P: 45 NV: 171 QRS: 17 QRSD: 79 T: 32 QT: 360 QTc: 453 Interpretive Statements SINUS RHYTHM WITH OCCASIONAL VENTRICULAR PREMATURE COMPLEXES NONSPECIFIC T-WAVE ABNORMALITY Compared to ECG 04/15/2021 22:40:25 Ventricular premature complex(es) now present T-wave abnormality still present Kristel Gay [facility] ORDERABLES Final Result [facility] documented in this encounter Visit Diagnoses Diagnosis Chest pain- Primary Chest pain, unspecified Chest pain Chest pain, unspecified Nausea Nausea alone documented in this encounter Admitting Diagnoses Diagnosis Chest pain Chest pain, unspecified documented in this encounter Administered Medications Inactive Administered Medications - up to 3 most recent administrations Medication Order MAR Action Action Date Dose Rate Site amLODIPine (NORVASC) tablet 10 mg 10 mg, Oral, Nightly, First dose on 07/09/21 at 2345, Until Discontinued Given 07/10/2021 9:28 PM CDT 10 mg Given 07/10/2021 12:38 AM CDT 10 mg aspirin chewable tablet 324 mg 324 mg, Oral, Once, 1 dose, On 07/09/21 at 1515 Given 07/09/2021 3:21 PM CDT 324 mg aspirin EC (ECOTRIN) tablet 81 mg 81 mg, Oral, Daily, First dose on 07/10/21 at 0900, Until Discontinued, Do not break, chew, or crush. Given 07/11/2021 11:14 AM CDT 81 mg Given 07/10/2021 9:17 AM CDT 81 mg atorvastatin (LIPITOR) tablet 20 mg 20 mg, Oral, Nightly at bedtime, First dose on 07/09/21 at 2345, Until Discontinued Given 07/10/2021 9:28 PM CDT 20 mg Given 07/10/2021 12:38 AM CDT 20 mg atorvastatin (LIPITOR) tablet 40 mg 40 mg, Oral, Nightly at bedtime, First dose (after last modification) on 07/11/21 at 2100, Until Discontinued doxycycline hyclate (VIBRAMYCIN) capsule 100 mg 100 mg, Oral, 2 times daily, 15 doses, First dose on 07/09/21 at 2345, Last dose on 07/16/21 at 2100, Through 07/16/21 Given 07/11/2021 11:14 AM CDT 100 mg Given 07/10/2021 9:28 PM CDT 100 mg Given 07/10/2021 9:17 AM CDT 100 mg enoxaparin (LOVENOX) 40 MG/0.4ML syringe 40 mg 40 mg, Subcutaneous, Nightly (enoxaparin), First dose (after last modification) on 07/10/21 at 2100, Until Discontinued, Administer by deep SubQ injection alternating between the left or right anterolateral and left or right posterolateral abdominal wall. Given 07/10/2021 9:28 PM CDT 40 mg Right Lower Abdomen enoxaparin (LOVENOX) 80 mg/0.8 mL syringe 80 mg 80 mg (rounded from 84.4 mg = 1 mg/kg ? 84.4 kg), Subcutaneous, Every 12 hours, First dose on 07/09/21 at 1915, Until Discontinued, Administer by deep SubQ injection alternating between the left or right anterolateral and left or right posterolateral abdominal wall. Given 07/09/2021 7:34 PM CDT 80 mg Left Lower Abdomen Generic Radiopharmaceutical 43.7 millicurie 43.7 millicurie, Intravenous, IMG once as needed, Rest 11 mCi Tc99m Myoview, Stress 32.7 mCi, 1 dose, Starting on 07/11/21 at 1117, Until 07/11/21 at 1117 Given 07/11/2021 11:17 AM CDT 43.7 millicuries Right Arm insulin aspart protamine-insulin aspart (NOVOLOG 70/30) injection 55 Units 55 Units, Subcutaneous, 2 times daily before meals, First dose (after last reorder) on 07/10/21 at 0700, Until Discontinued, Therapeutic interchange for Humalog 75/25 per [facility] protocol Given 07/11/2021 11:16 AM CDT 55 Units Left Lower Abdomen Given 07/10/2021 5:29 PM CDT 55 Units Le ft Arm insulin lispro (HUMALOG) injection 0-14 Units 0-14 Units, Subcutaneous, 3 times daily before meals, First dose on 07/10/21 at 0700, Until Discontinued, Blood Glucose (SENSITIVE Dosing): [Less than 70:? Initiate Hypoglycemia Standing Orders] [71-140: 0 units] [141-180: 2 units] [181-220: 4 units] [221-260: 6 units] [261-300: 8 units] [301-350: 10 units] [351-400: 12 units] [Greater than 400: 14 units and Call Physician] Given 07/11/2021 11:21 AM CDT 4 Units Left Lower Abdomen Given 07/10/2021 5:29 PM CDT 6 Units Le ft Arm Given 07/10/2021 1:38 PM CDT 2 Units Le ft Arm insulin lispro (HUMALOG) injection 0-7 Units 0-7 Units, Subcutaneous, Nightly at bedtime, First dose on 07/09/21 at 2345, Until Discontinued, Blood Glucose (SENSITIVE Dosing): [Less than 70:? Initiate Hypoglycemia Standing Orders] [71-180: ? 0 units] [181-220:? 2 units] [221-260:? 3 units] [261-300:? 4 units] [301-350:? 5 units] [351-400:? 6 units] [Greater than 400:? 7 units and Call Physician] iopamidol (ISOVUE-370) 76 % injection 80 mL 80 mL, Intravenous, IMG once as needed, Contrast, 1 dose, Starting on 07/09/21 at 1927, Until 07/09/21 at 1927 Given 07/09/2021 7:27 PM CDT 80 mLs Ri ght Arm lisinopril (PRINIVIL) tablet 40 mg 40 mg, Oral, Daily, First dose on 07/10/21 at 0900, Until Discontinued Given 07/11/2021 11:14 AM CDT 40 mg Given 07/10/2021 9:17 AM CDT 40 mg magnesium oxide (MAG-OX) tablet 800 mg 800 mg, Oral, Once, 1 dose, On 07/10/21 at 1230 Given 07/10/2021 1:32 PM CDT 800 mg magnesium oxide (MAG-OX) tablet 800 mg 800 mg, Oral, Once, 1 dose, On 07/11/21 at 1030 Given 07/11/2021 11:14 AM CDT 800 mg morphine injection 2 mg 2 mg, Intravenous, Once, 1 dose, On 07/09/21 at 1700 Given 07/09/2021 6:20 PM CDT 2 mg morphine injection 2 mg 2 mg, Intravenous, Every 4 hours PRN, Severe pain (Scale 8 - 10), Starting on 07/09/21 at 2323, Until 07/11/21 at 1543 Given 07/10/2021 11:18 PM CDT 2 mg Given 07/10/2021 2:13 PM CDT 2 mg Given 07/10/2021 5:17 AM CDT 2 mg nitroglycerin (NITRO-BID) 2 % ointment OINT 0.5 inch 0.5 inch, Topical, Administer over 6 Hours, Once, 1 dose, On 07/09/21 at 1600 Patch Applied 07/09/2021 3:57 PM CDT 0.5 inches ondansetron (ZOFRAN) injection 4 mg 4 mg, Intravenous, Every 8 hours PRN, Nausea, Vomiting, Starting on 07/09/21 at 2323, Until 07/11/21 at 1543, IV push over 2-5 minutes. Given 07/11/2021 12:11 PM CDT 4 mg perflutren lipid microsphere (DEFINITY) injection 2 mL 2 mL, Intravenous, IMG once as needed, Contrast, 1 dose, Starting on 07/10/21 at 1037, Until 07/10/21 at 1037, Administer over 30-60 seconds. Follow with 10 mL saline flush. Given 07/10/2021 10:37 AM CDT 2 mLs potassium chloride CR (K-TAB) tablet 40 mEq 40 mEq, Oral, Once, 1 dose, On 07/10/21 at 1230, Do not break, chew, or crush. Given 07/10/2021 1:31 PM CDT 40 mEq regadenoson (LEXISCAN) injection 0.4 mg 0.4 mg, Intravenous, Once, 1 dose, On 07/11/21 at 1045, Administer over 10 seconds Given 07/11/2021 10:00 AM CDT 0.4 mg documented in this encounter Active and Recently Administered Medications Times are shown in CDT. Scheduled Medication Order 07/09/2021 07/10/2021 07/11/2021 amLODIPine (NORVASC) tablet 10 mg 10 mg, Oral, Nightly, First dose on 07/09/21 at 2345, Until Discontinued 37 (Given - Provider: Servando Sung RN)2127 (Given - Provider: Sharyn Garza, DEANDRE) aspirin chewable tablet 324 mg (COMPLETED) 324 mg, Oral, Once, 1 dose, On 07/09/21 at 1515 1521 (Given - Provider: Willa Garrison RN) aspirin EC (ECOTRIN) tablet 81 mg 81 mg, Oral, Daily, First dose on 07/10/21 at 0900, Until Discontinued, Do not break, chew, or crush. 0917 (Given - Provider: Valdemar Villalta, DEANDRE) 111 (Given - Provider: Neli Plata, DEANDRE) atorvastatin (LIPITOR) tablet 20 mg (CANCELED) 20 mg, Oral, Nightly at bedtime, First dose on 07/09/21 at 2345, Until Discontinued 37 (Given - Provider: Servando Sung RN)2127 (Given - Provider: Sharyn Garza RN) atorvastatin (LIPITOR) tablet 40 mg 40 mg, Oral, Nightly at bedtime, First dose (after last modification) on 07/11/21 at 2100, Until Discontinued doxycycline hyclate (VIBRAMYCIN) capsule 100 mg 100 mg, Oral, 2 times daily, 15 doses, First dose on 07/09/21 at 2345, Last dose on 07/16/21 at 2100, Through 07/16/21 0038 (Given - Provider: Servando Sung RN)916 (Given - Provider: Valdemar Villalta RN)2127 (Given - Provider: Sharyn Garza RN) 1113 (Given - Provider: Neli Plata RN) enoxaparin (LOVENOX) 40 MG/0.4ML syringe 40 mg 40 mg, Subcutaneous, Nightly (enoxaparin), First dose (after last modification) on 07/10/21 at 2100, Until Discontinued, Administer by deep SubQ injection alternating between the left or right anterolateral and left or right posterolateral abdominal wall. 2127 (Given - Provider: Sharyn Garza RN) enoxaparin (LOVENOX) 80 mg/0.8 mL syringe 80 mg (CANCELED) 80 mg (rounded from 84.4 mg = 1 mg/kg ? 84.4 kg), Subcutaneous, Every 12 hours, First dose on 07/09/21 at 1915, Until Discontinued, Administer by deep SubQ injection alternating between the left or right anterolateral and left or right posterolateral abdominal wall. 193 (Given - Provider: Brigid Babin RN) insulin aspart protamine-insulin aspart (NOVOLOG 70/30) injection 55 Units 55 Units, Subcutaneous, 2 times daily before meals, First dose (after last reorder) on 07/10/21 at 0700, Until Discontinued, Therapeutic interchange for Humalog 75/25 per [facility] protocol 0925 (Not Given - Provider: Valdemar Villalta RN - Reason: NPO)1729 (Given - Provider: Valdemar Villalta RN) 111 (Given - Provider: Neli Plata RN) insulin lispro (HUMALOG) injection 0-14 Units(Linked Group 1) 0-14 Units, Subcutaneous, 3 times daily before meals, First dose on 07/10/21 at 0700, Until Discontinued, Blood Glucose (SENSITIVE Dosing): [Less than 70:? Initiate Hypoglycemia Standing Orders] [71-140: 0 units] [141-180: 2 units] [181-220: 4 units] [221-260: 6 units] [261-300: 8 units] [301-350: 10 units] [351-400: 12 units] [Greater than 400: 14 units and Call Physician] 0925 (Not Given - Provider: Valdemar Villalta RN - Reason: NPO)1338 (Given - Provider: Valdemar Villalta, DEANDRE)1729 (Given - Provider: Valdemar Villalta RN) 0835 (Not Given - Provider: Neli Plata, DEANDRE - Reason: NPO)1121 (Given - Provider: Neli Plata, DEANDRE) insulin lispro (HUMALOG) injection 0-7 Units(Linked Group 1) 0-7 Units, Subcutaneous, Nightly at bedtime, First dose on 07/09/21 at 2345, Until Discontinued, Blood Glucose (SENSITIVE Dosing): [Less than 70:? Initiate Hypoglycemia Standing Orders] [71-180: ? 0 units] [181-220:? 2 units] [221-260:? 3 units] [261-300:? 4 units] [301-350:? 5 units] [351-400:? 6 units] [Greater than 400:? 7 units and Call Physician] 0038 (Not Given - Provider: Servando Sung RN - Reason: Order parameters not met)2128 (Not Given - Provider: Sharyn Garza RN - Reason: Order parameters not met) lisinopril (PRINIVIL) tablet 40 mg 40 mg, Oral, Daily, First dose on 07/10/21 at 0900, Until Discontinued 09 (Given - Provider: Valdemar Villalta RN) 1114 (Given - Provider: Neli Plata RN) magnesium oxide (MAG-OX) tablet 800 mg (COMPLETED) 800 mg, Oral, Once, 1 dose, On 07/10/21 at 1230 1332 (Given - Provider: Valdemar Villalta, DEANDRE) magnesium oxide (MAG-OX) tablet 800 mg (COMPLETED) 800 mg, Oral, Once, 1 dose, On 07/11/21 at 1030 1114 (Given - Provider: Neli Plata, DEANDRE) morphine injection 2 mg (COMPLETED) 2 mg, Intravenous, Once, 1 dose, On 07/09/21 at 1700 1820 (Given - Provider: Jorje Fraser, RN) nitroglycerin (NITRO-BID) 2 % ointment OINT 0.5 inch (COMPLETED) 0.5 inch, Topical, Administer over 6 Hours, Once, 1 dose, On 07/09/21 at 1600 1557 (Patch Applied - Provider: Jorje Fraser, DEANDRE)2200 (Patch Removed - Provider: Brigid Babin RN) potassium chloride CR (K-TAB) tablet 40 mEq (COMPLETED) 40 mEq, Oral, Once, 1 dose, On 07/10/21 at 1230, Do not break, chew, or crush. 1331 (Given - Provider: Valdemar Villalta, DEANDRE) regadenoson (LEXISCAN) injection 0.4 mg (COMPLETED) 0.4 mg, Intravenous, Once, 1 dose, On Sun07/11/21 at 1045, Administer over 10 seconds 1000 (Given - Provider: Tracey Langston, DEANDRE) PRN Medication Order 07/09/2021 07/10/2021 07/11/2021 acetaminophen (TYLENOL) tablet 650 mg 650 mg, Oral, Every 4 hours PRN, Mild pain (Scale 1 - 3), Moderate pain (Scale 4 - 7), Headaches, Fever, Discomfort, Starting on 07/09/21 at 2323, Until Sun07/11/21 at 1543, Maximum dose of acetaminophen is 4000 mg from all sources in 24 hours. albuterol sulfate HFA 108 (90 Base) MCG/ACT inhaler 2 puff 2 puff, Inhalation, Every 4 hours PRN, Wheezing, Shortness of breath, Starting on 07/09/21 at 2323, Until 07/11/21 at 1543 docusate sodium (COLACE) capsule 100 mg 100 mg, Oral, 2 times daily PRN, Constipation, Starting on 07/09/21 at 2323, Until 07/11/21 at 1543 Generic Radiopharmaceutical 43.7 millicurie (COMPLETED) 43.7 millicurie, Intravenous, IMG once as needed, Rest 11 mCi Tc99m Myoview, Stress 32.7 mCi, 1 dose, Starting on 07/11/21 at 1117, Until Sun07/11/21 at 1117 1117 (Given - Provider: JOSEPH RuggieroMT) HYDROcodone-acetaminophen (NORCO) 5-325 MG tablet 1 tablet 1 tablet, Oral, Every 4 hours PRN, Moderate pain (Scale 4 - 7), Severe pain (Scale 8 - 10), Starting on 07/09/21 at 2323, Until Sun07/11/21 at 1543, Maximum dose of acetaminophen is 4000 mg from all sources in 24 hours. 1406 (Not Given - Provider: Valdemar Villalta RN - Reason: Other - Comment: changed to norco for CP) iopamidol (ISOVUE-370) 76 % injection 80 mL (COMPLETED) 80 mL, Intravenous, IMG once as needed, Contrast, 1 dose, Starting on 07/09/21 at 1927, Until 07/09/21 at 1927 1927 (Given - Provider: Funmi Adams, RTR) morphine injection 2 mg 2 mg, Intravenous, Every 4 hours PRN, Severe pain (Scale 8 - 10), Starting on 07/09/21 at 2323, Until Sun07/11/21 at 1543 0051 (Given - Provider: Servando Sung RN)0517 (Given - Provider: Servando Sung RN)1413 (Given - Provider: Valdemar Villalta RN)2318 (Given - Provider: Sharyn Garza, DEANDRE) naLOXone (NARCAN) injection 0.4 mg 0.4 mg, Intravenous, As needed, Opioid reversal, Starting on 07/09/21 at 2323, Until 07/11/21 at 1543 ondansetron (ZOFRAN) injection 4 mg 4 mg, Intravenous, Every 8 hours PRN, Nausea, Vomiting, Starting on 07/09/21 at 2323, Until Sun07/11/21 at 1543, IV push over 2-5 minutes. 1211 (Given - Provider: Neli Plata RN) perflutren lipid microsphere (DEFINITY) injection 2 mL (COMPLETED) 2 mL, Intravenous, IMG once as needed, Contrast, 1 dose, Starting on 07/10/21 at 1037, Until 07/10/21 at 1037, Administer over 30-60 seconds. Follow with 10 mL saline flush. 1037 (Given - Provider: Kalina Lopez RDCS) polyethylene glycol (GLYCOLAX) packet 17 g 17 g, Oral, Daily as needed, Constipation, Starting on 07/09/21 at 2323, Until 07/11/21 at 1543, If both senna and polyethylene glycol are ordered, use 1st; if no response by next dosing interval, go to next option. Linked Groups Order Group 1: insulin lispro (HUMALOG) injection 0-14 UnitsJump to med 0-14 Units, Subcutaneous, 3 times daily before meals, First dose on 07/10/21 at 0700, Until Discontinued, Blood Glucose (SENSITIVE Dosing): [Less than 70:? Initiate Hypoglycemia Standing Orders] [71-140: 0 units] [141-180: 2 units] [181-220: 4 units] [221-260: 6 units] [261-300: 8 units] [301-350: 10 units] [351-400: 12 units] [Greater than 400: 14 units and Call Physician] And insulin lispro (HUMALOG) injection 0-7 UnitsJump to med 0-7 Units, Subcutaneous, Nightly at bedtime, First dose on 07/09/21 at 2345, Until Discontinued, Blood Glucose (SENSITIVE Dosing): [Less than 70:? Initiate Hypoglycemia Standing Orders] [71-180: ? 0 units] [181-220:? 2 units] [221-260:? 3 units] [261-300:? 4 units] [301-350:? 5 units] [351- 400:? 6 units] [Greater than 400:? 7 units and Call Physician] documented in this encounter Additional Health Concerns Assessment Noted Time PHQ-9 Depression Total Score: 0 03/08/19 22 9:30 AM FIELD SEISMOLOGIST documented as of this encounter Care Teams Slip Sheeter Relationship Specialty Start Date End Date Yasmin Segura II, MD [address] [place] [address] PCP - General FAMILY PRACTICE 03/09/21 documented as of this encounter
--- OUTSIDE RECORDS SUMMARY | 2024-03-02 22:28 | XMS_ITS | Encounter Summary ---
Author Organization [facility] Address [address] [place] [address]. [place], [place] [id number] [place] [id number] Care Team Providers Care Law Professor Name Role Phone Colton SILVEIRA MD, Abiodun Rushing Primary Care Provider Encounter Details Date Type Department Care Team (Latest Contact Info) Description 11/28/2021 Travel Social History Tobacco Use Types Packs/Day [...] suspected to have Coronavirus/COVID-19? No / Unsure 11/28/2021 11:30 AM CDT documented as of this encounter [...] st Contact Info) Description 03/14/2024 11:45 AM ICE GUARD SKATING RINK Office Visit [facility] [phone] Marvin Mckeon MD Three [facility] [address] [place] [address] 03/20/2024 11:30 AM ICE GUARD SKATING RINK Office Visit [facility] Family Medicine - [address] [phone] Abiodun Segura II, MD [address] [place] [id number] documented as of this encounter Visit Diagnoses Not on filedocumented in this encounter Additional Health Concerns Assessment Noted Time PHQ-9 Depression Total Score: 0 03/08/19 9:30 AM ICE GUARD [employer]ATING RINK documented as of this encounter Care Teams Law Professor Relationship Specialty Start Date End Date Abiodun Segura II, MD [address] [place] [address] PCP - General FAMILY PRACTICE 03/09/21 documented as of this encounter
--- OUTSIDE RECORDS SUMMARY | 2024-03-02 22:28 | XMS_ITS | Encounter Summary ---
Author Organization [facility] Address [address] [place] [address]. [place], [place] [address] [place] [id number] Care Team Providers Care Mini Baccarat Dealer Name Role Phone Colton SILVEIRA MD, Abiodun Rushing Primary Care Provider Encounter Details Date Type Department Care Team (Latest Contact Info) Description 07/14/2021 Travel Social History Tobacco Use Types Packs/Day [...] suspected to have Coronavirus/COVID-19? No / Unsure 07/14/2021 2:07 PM CDT documented as of this encounter [...] Contact Info) Description 03/14/2024 11:45 AM PROJECT COORDINATOR RN Office Visit [facility] [phone] Marvin Mckeon MD Three [facility] [address] [place] [address] 03/20/2024 11:30 AM PROJECT COORDINATOR RN Office Visit [facility] Family Medicine - [address] [phone] Abiodun Segura II, MD [address] [place] [id number] documented as of this encounter Visit Diagnoses Not on filedocumented in this encounter Additional Health Concerns Assessment Noted Time PHQ-9 Depression Total Score: 0 03/08/19 9:30 AM PROJECT COORDINATOR RN documented as of this encounter Care Teams Mini Baccarat Dealer Relationship Specialty Start Date End Date Abiodun Segura II, MD [address] [place] [address] PCP - General FAMILY PRACTICE 03/09/21 documented as of this encounter
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
--- OUTSIDE RECORDS SUMMARY | 2024-03-02 22:28 | XMS_ITS | Encounter Summary ---
Author Organization [facility] Address [address] [place] [address]. [place], [place] [address] [place] [address] Care Team Providers Care Operations Manager Station Name Role Phone Colton SILVEIRA MD, Abiodun Rushing Primary Care Provider Victoriano Langston MD Unavailable [phone] Encounter Details Date Type Department Care Team (Latest Contact Info) Description 08/24/2021 Scan HEALTH INFO SRVCS Scanned, Doc Med Group Social History Tobacco Use Types Packs/Day Years Used Date Smoking Tobacco: Never Smokeless Tobacco: Never Alcohol Use Standard Drinks/Week Comments Yes 0 (1 standard drink = 0.6 oz pur e alcohol) Rarely [facility] Utilities Answer Date Recorded In the past [address] [facility] [employer], gas, oil, or water [employer] threatened to shut off services in your [...] Recorded Patient Health Questionnaire-2 Score 1 03/05/2023 [facility] [place] of Occupat ional Health - Occupational Stress [...] PM Teresa Coe RN Ac tive * RETIRED Are you deaf or do [...] or making decisions? No 03/06/2023 3:39 PM QUALITY HEAD Teresa Amaya RN Active * Because of a physical, mental, or emotional condition, do you have serious difficulty concentrating, remembering, or making decisions? Answer Entry Date Author Status No 07/09/2021 11:35 PM CDT Servando Sung RN Active documented in this encounter Plan of Treatment Upcoming Encounters Date Type Department Care Team (Late st Contact Info) Description 03/14/2024 11:45 AM QUALITY HEAD Office Visit [facility] [phone] Mravin Mckeon MD Three [facility] [address] [place] [address] 03/20/2024 11:30 AM QUALITY HEAD Office Visit [facility] Family Medicine - [place] [address] [place] [phone] Abiodun Segura II, MD [address] [place] [address] documented as of this encounter Goals Goal [...] Out 12/22/2021 12/22/2021 12/22/2021 6:31 AM CDT COVID-19 Rule Out 01/08/2022 01/08/2022 01/08/2022 6:50 PM QUALITY HEAD Assessment Noted Time PHQ-9 Depression Total Score: 0 03/08/19 9:30 AM QUALITY HEAD documented as of this encounter Care Teams Operations Manager Station Relationship Specialty Start Date End Date Abiodun Segura II, MD [address] [place] [address] PCP - General FAMILY PRACTICE 03/09/21 [place] [address] [place] [address] PODIATRY/SURGERY 05/05/22 documented as of this encounter
--- OUTSIDE RECORDS SUMMARY | 2024-03-02 22:28 | XMS_ITS | Encounter Summary ---
Author Organization [facility] Address [address] [place] [address]. [place] [address] [place] [address] Care Team Providers Care Field Services Analyst Name Role Phone Colton SILVEIRA MD, Abiodun Rushing Primary Care Provider Reason for Visit * Reason Onset Date Comments Record Request 09/01/2021 Encounter Details Date Type Department Care Team (Late st Contact Info) Description 09/01/2021 Telephone [facility] Family Medicine - [place] [address] [place] [address] Abiodun Segura II, MD [address] [place] [address] Record Request Social History Tobacco [...] documented in this encounter Progress Notes * Paulina Santiago MA - 09/01/2021 1:43 PM CDT I have vaxed [facility] for DM eye exam report documented in this encounter Plan of Treatment Upcoming Encounters Date Type Department Care Team (Late st Contact Info) Description 03/14/2024 11:45 AM LEATHER COATER Office Visit [facility] [phone] Marvin Mckeon MD [facility] [address] [place] [address] 03/20/2024 11:30 AM LEATHER COATER Office Visit [facility] Family Medicine - [place] [address] [place] [phone] Abiodun Segura II, MD [address] [place] [address] documented as of this encounter Visit Diagnoses Not on filedocumented in this encounter Additional Health Concerns Assessment Noted Time PHQ-9 Depression Total Score: 0 03/08/19 9:30 AM LEATHER COATER documented as of this encounter Care Teams Field Services Analyst Relationship Specialty Start Date End Date Abiodun Segura II, MD [address] [place] [address] PCP - General FAMILY PRACTICE 03/09/21 documented as of this encounter
--- OUTSIDE RECORDS SUMMARY | 2024-03-02 22:28 | XMS_ITS | Encounter Summary ---
Author Organization [facility] Address [address] [place] [address]. [place], [place] [address] [place] [address] Care Team Providers Care Superintendent Quarry Name Role Phone Colton SILVEIRA MD, Abiodun Rushing Primary Care Provider Encounter Details Date Type Department Care Team (Latest Contact Info) Description 09/07/2021 Travel Social History Tobacco Use Types Packs/Day [...] st Contact Info) Description 03/14/2024 11:45 AM AIRPLANE AND ENGINE INSPECTOR Office Visit [facility] [phone] Marvin Mckeon MD Three [facility] [address] [place] [address] 03/20/2024 11:30 AM AIRPLANE AND ENGINE INSPECTOR [facility] Family Medicine - [address] [phone] Abiodun Segura II, MD [address] [place] [address] documented as of this encounter Visit Diagnoses Not on filedocumented in this encounter Additional Health Concerns Assessment Noted Time PHQ-9 Depression Total Score: 0 03/08/19 9:30 AM AIRPLANE AND ENGINE INSPECTOR documented as of this encounter Care Teams Superintendent Quarry Relationship Specialty Start Date End Date Abiodun Segura II, MD [address] [place] [address] PCP - General FAMILY PRACTICE 03/09/21 documented as of this encounter
--- OUTSIDE RECORDS SUMMARY | 2024-03-02 22:28 | XMS_ITS | Encounter Summary ---
Author Organization [facility] Address [address] [place] [address]. [place], [place] [address] [place] [address] Care Team Providers Care Genetics Nurse Name Role Phone Colton SILVEIRA MD, Abiodun Rushing Primary Care Provider Encounter Details Date Type Department Care Team (Latest Contact Info) Description 10/28/2021 Scan HEALTH INFO SRVCS Scanned, Documents Social History Tobacco Use Types Packs/Day Years [...] st Contact Info) Description 03/14/2024 11:45 AM BANKRUPTCY LAW SPECIALIST Office Visit [facility] [phone] Marvin Mckeon MD Three [facility] [address] [place] [address] 03/20/2024 11:30 AM BANKRUPTCY LAW SPECIALIST Office Visit [facility] Family Medicine - [place] [address] [place] [phone] Abiodun Segura II, MD [address] [place] [phone] documented as of this encounter Visit Diagnoses Not on filedocumented in this encounter Additional Health Concerns Assessment Noted Time PHQ-9 Depression Total Score: 0 03/08/19 9:30 AM BANKRUPTCY LAW SPECIALIST documented as of this encounter Care Teams Genetics Nurse Relationship Specialty Start Date End Date Abiodun Segura II, MD [address] [place] [address] PCP - General FAMILY PRACTICE 03/09/21 documented as of this encounter
--- OUTSIDE RECORDS SUMMARY | 2024-03-02 22:28 | XMS_ITS | Encounter Summary ---
Author Organization [facility] Address [address] [place] [address]. [place] [address] [place] [address] Care Team Providers Care Supervisor Doping Name Role Phone Colton SILVEIRA MD, Abiodun Rushing Primary Care Provider Reason for Visit * Reason Onset Date Comments Medication Reconciliation 10/04/2021 Encounter Details Date Type Department Care Team (Late st Contact Info) Description 10/04/2021 Telephone [facility] Family Medicine - [place] [address] [place] [address] Abiodun Segura II, MD [address] [place] [address] Medication Reconciliation Social History Tobacco Use Types Packs/Day Years [...] Progress Notes * Sydney Cobos MA - 10/04/2021 12:21 PM CDT Pharmacy ([facility]) faxed a refill request stating patient needs a refill on Simvastatin 40 mg. I see Atorvastatin on her medication list Can you refill the appropriate statin please? Patient states she has been taking Simvastatin she said but thinks maybe she was supposed to switch Please advise documented in this encounter Plan of Treatment Upcoming Encounters Date Type Department Care Team (Late st Contact Info) Description 03/14/2024 11:45 AM TANK STORAGE SUPERVISOR Office Visit [facility] [phone] Marvin Mckeon MD Three [facility] [address] [place] [address] 03/20/2024 11:30 AM TANK STORAGE SUPERVISOR Office Visit [facility] Family Medicine - [place] [address] [place] [phone] Abiodun Segura II, MD [address] [place], [place] [phone] documented as of this encounter Visit Diagnoses Not on filedocumented in this encounter Additional Health Concerns Assessment Noted Time PHQ-9 Depression Total Score: 0 03/08/19 22 9:30 AM TANK STORAGE SUPERVISOR documented as of this encounter Care Teams Supervisor Doping Relationship Specialty Start Date End Date Abiodun Segura II, MD [address] [place] [address] PCP - General FAMILY PRACTICE 03/09/21 documented as of this encounter
--- OUTSIDE RECORDS SUMMARY | 2024-03-02 22:28 | XMS_ITS | Encounter Summary ---
Author Organization [facility] Address [address] [place] [address]. [place] [address] [place] [address] Care Team Providers Care Travertine Installer Name Role Phone Colton SILVEIRA MD, Abiodun Rushing Primary Care Provider Encounter Details Date Type Department Care Team (Latest Contact Info) Description 11/28/2021 11:32 AM CDT - 11/28/2021 11:59 PM CDT Hospital Encounter [facility] [address] [place], [place] [id number] [place] [address] [place] [address] Discharge Disposition: Home or Self Care (Routine [...] Sung RN Active documented in this encounter Medications at Time of Discharge amLODIPine 10 MG tabletIndications:H ypertension, unspecified type [The details of the medication are not available because there are pending changes by a home health clinician.] 90 tablet 3 1 08/08/19 23 cyclobenzaprine 10 MG tablet Take 1 tablet (10 mg total) by mouth 3 (three) times daily as needed. 15 tablet 2 03/15/19 23 Dulaglutide (TRULICITY) 3 MG/0.5ML Solution Pen-injectorIndicat ions:Type 2 diabetes mellitus with diabetic neuropathic arthropathy, with long-term current use of insulin ([facility]) Inject 3 mg into the skin weekly. 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, with long-term current use of insulin ([facility]) USE 1 STRIP TO CHECK GLUCOSE TWICE DAILY 200 strip 3 2 01/02/20 22 HUMALOG MIX 75/25 (75-25) 100 UNIT/ML SuspensionIndicatio ns:Type 2 diabetes mellitus with retinopathy, with long-term current use of insulin, macular edema presence unspecified, unspecified laterality, unspecified retinopathy severity ([facility]) Inject 60 units ;subcutaneously in the morning and 55 in the evening 40 mL 3 2 01/02/20 hydroCHLOROthiazide (HYDRODIURIL) 25 MG tablet Take 25 mg by mouth every morning. 12/27/19 22 hydrocortisone (HYTONE) 2.5 % ointmentIndications :Skin Rash Apply 1 Application topically daily as needed. Indications: Rash Apply to face 2 10/12/19 23 hydrOXYzine (ATARAX) 25 MG tabletIndications:B urning Sensation and Itching (Inactive) Take 1-2 tablets (25-50 mg total) by mouth nightly at bedtime. Indications: Burning Feeling and Itching 2 10/12/19 23 lidocaine 4 % patch Place 1 patch onto the skin daily. Remove & Discard patch within 12 hours or as directed by 7 patch 2 12/17/19 22 linaCLOtide 145 MCG [...] long-term current use of insulin ([facility]) USE 1 SYRINGE SUBCUTANEOUSLY TWICE DAILY 100 each 5 1 01/02/20 22 simvastatin (ZOCOR) 40 MG tabletIndications:H ypercholesteremia [The details of the medication are not available because there are pending changes by a home health clinician.] 90 tablet 3 2 06/15/19 24 SITagliptin 100 MG tabletIndications:T ype 2 diabetes mellitus with diabetic neuropathic arthropathy, with long-term current use of insulin ([facility]) Take 1 tablet (100 mg total) by mouth daily. 90 tablet 3 2 12/27/19 22 triamcinolone (KENALOG) 0.1 % cream APPLY CREAM TOPICALLY TO BODY TWICE DAILY FOR 2 WEEKS THEN NEEDED (CAN THIN THE SKIN) 2 12/17/19 22 documented as of this encounter Plan of Treatment Upcoming Encounters Date Type Department Care Team (Late st Contact Info) Description 03/14/2024 11:45 AM CHEF DE CUISINE Office Visit [facility] [phone] Marvin Mckeon MD [facility] [address] [place], [place] [phone] 03/20/2024 11:30 AM CHEF DE CUISINE Office Visit [facility] - [address] [phone] Abiodun Segura II, MD [address] [place] [phone] documented as of this encounter Procedures Procedure Name Priority Date/Time Associated Diagnosis Comments XR FOOT LT 3V Routine 11/28/2021 11:48 AM CDT Pain documented in this encounter Results * XR FOOT LT 3V (11/28/2021 11:48 AM CDT) Anatomical Region Laterality Modality Foot Radiographic Shelli ging 11/29/2021 8:02 AM CDT Impressions 11/29/2021 8:03 AM CDT IMPRESSION: 1. ?? Prior amputations and midfoot neuropathic disease, stable. ??No definite acute osteomyelitis, but if there is significant clinical concern for osteomyelitis, MRI is recommended. Referred By: ?? Interpreted By: Isaías Jones MD, 11/29/2021 8:02 AM Narrative 11/29/2021 8:03 AM CDT EXAMINATION: Left foot EXAM DATE: 11/28/2021 11:48 AM REASON FOR EXAM: ??pain ?? Foot pain and swelling COMPARISON: 01/17/2021 TECHNIQUE: 3 views FINDINGS: Moderate soft tissue swelling. ??Hypertrophic bone and mixed sclerotic and lucent changes throughout the midfoot compatible with neuropathic disease, grossly stable. Bone spur suggests chronic plantar fasciitis. Status post second and third digit amputations. ??No obvious acute erosive changes to indicate acute osteomyelitis. ??If there is clinical concern for acute osteomyelitis, MRI recommended. No evidence of fracture or dislocation. Procedure Note Isaías Jones MD - 11/29/2021 EXAMINATION: Left foot EXAM DATE: 11/28/2021 11:48 AM REASON FOR EXAM: pain Foot pain and swelling COMPARISON: 01/17/2021 TECHNIQUE: 3 views FINDINGS: Moderate soft tissue swelling. Hypertrophic bone and mixed sclerotic andlucent changes throughout the midfoot compatible with neuropathic disease,grossly stable. Bone spur suggests chronic plantar fasciitis. Status post second and third digit amputations. No obvious acute erosivechanges to indicate acute osteomyelitis. If there is clinical concern foracute osteomyelitis, MRI recommended. No evidence of fracture or dislocation. IMPRESSION: 1. Prior amputations and midfoot neuropathic disease, stable. Nodefinite acute osteomyelitis, but if there is significant clinical concernfor osteomyelitis, MRI is recommended. Referred By: Interpreted By: Isaías Jones MD, 11/29/2021 8:02 AM us Victoriano Langston MD GENERAL IMAGING Final Result documented in this encounter Visit Diagnoses Diagnosis Pain Generalized pain documented in this encounter Additional Health Concerns Assessment Noted Time PHQ-9 Depression Total Score: 0 03/08/19 9:30 AM CHEF DE CUISINE documented as of this encounter Care Teams Travertine Installer Relationship Specialty Start Date End Date Abiodun Segura II, MD [address] [place] [id number] PCP - General FAMILY PRACTICE 03/09/21 documented as of this encounter
--- OUTSIDE RECORDS SUMMARY | 2024-03-02 22:28 | XMS_ITS | Encounter Summary ---
Author Organization [facility] Address [address] [place] [address]. [place] [address] [place] [address] Care Team Providers Care Seam Checker Name Role Phone Colton SILVEIRA MD, Yasmin Rushing Primary Care Provider Reason for Referral * Imaging (Emergency) - Closed Specialty Diagnoses / Procedures Referred By Lyla chaney Referred To Contact RADIOLOGY Procedures CT ABD+PEL W IV CON ONLY Al Dia PA [address] [place] [address] Phone: tel: fax: Referral ID Status Reason Start Date Expiration Date Visits Re quested Visits Authorized [id number] Closed 10/29/2021 10/29/2022 1 1 Reason for Visit * Reason Comments Back Pain Urinary Symptoms Encounter Details Date Type Department Care Team (Late st Contact Info) Description 10/29/2021 11:08 AM CDT - 10/29/2021 4:42 PM CDT Emergency [facility] Emergency [place], [place] [id number] Lex Mancilla PA [address] [place], [place] [id number] Back Pain; Urinary Symptoms Discharge Disposition: Home or [...] Sign Reading Time Taken Comments Blood Pressure 142/88 10/29/2021 4:00 PM CDT Pulse 85 10/29/2021 12:45 PM CDT Temperature 36.8 ??C (98.3 ??F) 10/29/2021 11:02 AM C DT Respiratory Rate 16 10/29/2021 12:45 PM CDT Oxygen Saturation 100% 10/29/2021 4:00 PM CDT Inhaled Oxygen Concentration - - Weight 83.5 kg (184 lb) 10/29/2021 11:02 AM CDT Height 167.6 cm (5' 6 ) 10/29/2021 11:02 AM CDT Body Mass Index 29.7 10/29/2021 11:02 AM CDT documented in this encounter Functional [...] Instructions * Discharge Instructions* CYNTHIA Garsia - 10/29/2021 3:56 PM CDT Drink plenty of fluids. Continue with macrobid abx. Continue to take pyridium for pain. Take tylenol for pain as well. Take new abx as well. Please return to the ER if symptoms worsen or changes. * Attachments The following attachments cannot be sent through Care Everywhere. * Urinary Tract Infection, Adult ED ([place]) documented in this encounter Medications at Time of Discharge amLODIPine 10 MG tabletIndications:H ypertension, unspecified type [The details of the medication are not available because there are pending changes by a home health clinician.] 90 tablet 3 1 08/08/19 23 cephALEXin (KEFLEX) 500 MG capsule Take 1 capsule (500 mg total) by mouth 2 (two) times daily for 5 days. 10 capsule 2 11/04/19 22 cyclobenzaprine 10 MG tablet Take 1 tablet (10 mg total) by mouth 3 (three) times daily as needed. 15 tablet 2 03/15/19 23 Dulaglutide (TRULICITY) 3 MG/0.5ML Solution Pen-injectorIndicat ions:Type 2 diabetes mellitus with diabetic neuropathic arthropathy, with long-term current use of insulin ([facility]) Inject 3 mg into the skin weekly. 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, with long-term current use of insulin ([facility]) USE 1 STRIP TO CHECK GLUCOSE TWICE DAILY 200 strip 3 2 01/02/20 22 HUMALOG MIX 75/25 (75-25) 100 UNIT/ML SuspensionIndicatio ns:Type 2 diabetes mellitus with retinopathy, with long-term current use of insulin, macular edema presence unspecified, unspecified laterality, unspecified retinopathy severity ([facility]) Inject 60 units ;subcutaneously in the morning [...] daily 30 tablet 5 2 01/07/20 22 nitrofurantoin, macrocrystal-monohy drate, (MACROBID) 100 MG capsuleIndications: Cystitis Take 1 capsule (100 mg total) by mouth 2 (two) times daily for 7 days. 14 capsule 2 11/05/19 22 nitroglycerin 0.[address] [...] for Nausea. 20 tablet 2 10/12/19 23 phenazopyridine (PYRIDIUM) 100 MG tabletIndications:C ystitis Take 1 tablet (100 mg total) by mouth 3 (three) times daily as needed for Pain. 9 tablet 2 11/01/19 22 RELION INSULIN SYRINGE 31G X 15/64 1 ML MiscIndications:Typ e 2 diabetes mellitus with diabetic neuropathic arthropathy, with long-term current use of insulin ([facility]) USE 1 SYRINGE SUBCUTANEOUSLY TWICE DAILY 100 each 5 1 01/02/20 22 simvastatin (ZOCOR) 40 MG tabletIndications:H ypercholesteremia [The details of the medication are not available because there are pending changes by a home health clinician.] 90 tablet 3 2 06/15/19 24 SITagliptin 100 MG tabletIndications:T ype 2 diabetes mellitus with diabetic neuropathic arthropathy, with long-term current use of insulin ([facility]) Take 1 tablet (100 mg total) by mouth daily. 90 tablet 3 2 12/27/19 22 triamcinolone (KENALOG) 0.1 % cream APPLY CREAM TOPICALLY TO BODY TWICE DAILY FOR 2 WEEKS THEN NEEDED (CAN THIN THE SKIN) 2 12/17/19 22 documented as of this encounter ED Notes * Julita Islas RN - 10/29/2021 4:41 PM CDT Provider discussed today's findings with the patient/family. The patient has been given informationregarding their treatment, follow up and concerning symptoms for which they should seek urgent or emergent attention. I have expressed the the importance of seeking attention should there be any new,or worsening symptoms or persistence of their condition. Patient verbalized understanding of the discharge instructions. * Opal Lei RN - 10/29/2021 4:25 PM CDT Pt called her daughter for transport, states she will be here shortly. * CYNTHIA Garsia - 10/29/2021 2:39 PM CDT [place], [place] EMERGENCY DEPARTMENT ENCOUNTER HISTORICAL INFORMATION Primary Care Doctor: YASMIN SEGURA MD Patient information was obtained primarily from the patient, nursing notes History/Exam limitations: None Provider at Bedside Date/Time Event User Comments 10/29/21 1105 Provider at Bedside Assessing Patient AL DIA -- CHIEF COMPLAINT Back Pain and Urinary Symptoms HPI Lena Mcneal is a 51-year-old female who presents with dysuria, increased urinary frequency and right flank pain. Pt has had urinary symptoms x several days. Pt was called in macrobid yesterday and pyridium by PCP. Pt states her symptoms are worsening. Pt denies fever. PAST MEDICAL HISTORY Past Medical History: Diagnosis [...] noted CURRENT MEDICATIONS Current Facility-Administered Medications: ??? cefTRIAXone (ROCEPHIN) 1 g in sodium chloride 0.9 % 50 mL IVPB, 1 g, Intravenous, Once, CYNTHIA Joe Current Outpatient Medications: ??? nitrofurantoin, macrocrystal-monohydrate, (MACROBID) 100 MG capsule, Take 1 capsule (100 mg total) by mouth 2 (two) times daily for 7 days., Disp: 14 capsule, Rfl: 0 ??? phenazopyridine (PYRIDIUM) 100 MG tablet, Take 1 tablet (100 mg total) by mouth 3 (three) timesdaily as needed for Pain., Disp: 9 tablet, Rfl: 0 ??? amLODIPine 10 MG tablet, Take 1 tablet (10 mg total) by mouth daily. (Patient taking differently: Take 10 mg by mouth nightly.), Disp: 90 tablet, Rfl: 3 ??? cyclobenzaprine 10 MG tablet, Take 1 tablet (10 mg total) by mouth 3 (three) times daily as needed., Disp: 15 tablet, Rfl: 0 ??? Dulaglutide (TRULICITY) 3 MG/0.5ML Solution Pen-injector, Inject 3 mg into the skin weekly. (Patient taking differently: Inject 3 mg into the skin weekly. ), Disp: 12 pen, Rfl: 3 ??? Glucose Blood test strip, USE 1 STRIP TO CHECK GLUCOSE TWICE DAILY, Disp: 200 strip, Rfl: 3 ??? HUMALOG MIX 75/25 (75-25) 100 UNIT/ML Suspension, Inject 60 units ;subcutaneously in the morning and 55 in the evening (Patient taking differently: Inject 65 units ;subcutaneously in the morning and 55 in the evening), Disp: 40 mL, Rfl: 3 ??? hydroCHLOROthiazide (HYDRODIURIL) 25 MG tablet, Take 25 mg by mouth every morning., Disp: , Rfl: ? ? lidocaine 4 % patch, Place 1 patch onto the skin daily. Remove & Discard patch within 12 hours or as directed by MD, Disp: 7 patch, Rfl: 0 ??? linaCLOtide 145 MCG capsule, Take 1 capsule (145 mcg total) by mouth every morning before breakfast. Take on empty stomach at least 30 minutes prior to the first meal of the day. Swallow whole. Do not open capsule or chew., Disp: 30 capsule, Rfl: 5 ??? LISINOPRIL 40 MG tablet, Take 1 tablet by mouth once daily, Disp: 30 tablet, Rfl: 5 ??? nitroglycerin 0.4 MG SL tablet, Place 0.4 mg under the tongue every 5 (five) minutes as needed.FOR CHEST PAIN DO NOT EXCEED A TOTAL OF 3 DOSES IN 15 MINUTES, Disp: , Rfl: ??? omeprazole 40 MG capsule, Take 1 capsule (40 mg total) by mouth in the morning., Disp: 30 capsule, Rfl: 1 ??? ondansetron 4 MG disintegrating tablet, Take 1 tablet (4 mg total) by mouth every 8 (eight) hours as needed for Nausea., Disp: 20 tablet, Rfl: 0 ??? RELION INSULIN SYRINGE 31G X 15 1 ML Misc, USE 1 SYRINGE SUBCUTANEOUSLY TWICE DAILY (Patient taking differently: 1 Syringe by Other route as needed.), Disp: 100 each, Rfl: 5 ??? simvastatin (ZOCOR) 40 MG tablet, TAKE 1 TABLET BY MOUTH AT BEDTIME, Disp: 90 tablet, Rfl: 3 ??? SITagliptin 100 MG tablet, Take 1 tablet (100 mg total) by mouth daily., Disp: 90 tablet, Rfl: 3 ALLERGIES Allergies Allergen Reactions ??? Fish Oil [...] Belt Yes Social History Narrative lives with Negative unless otherwise noted REVIEW OF SYSTEMS Review of Systems Gastrointestinal: Positive for abdominal pain. Genitourinary: Positive for dysuria and frequency. All other systems reviewed and negative PHYSICAL EXAM VITAL SIGNS: Filed Vitals: 10/29/21 1102 10/29/21 1200 10/29/21 1245 10/29/21 1400 BP: (!) 177/118 (!) 175/100 (!) 166/96 (!) 140/73 Pulse: 95 85 Resp: 18 16 Temp: 98.3 ??F (36.8 ??C) TempSrc: Oral SpO2: 99% 96% 100% 99% Weight: 83.5 kg (184 lb) Height: [...] major deformities noted. Back- No tenderness. Integument: Warm, Dry, No erythema, No rash. Lymphatic: No lymphadenopathy noted. Neurologic: Alert & oriented x 3, Normal motor function, Normal sensory function, No focal deficits noted. Psychiatric: Affect normal, Judgment normal, Mood normal. Pertinent Labs: Results for orders placed or performed during the hospital encounter of 10/29/21 CBC W/DIFF AUTOMATED Result Value Ref Range WBC 9.0 4.5 - 11.0 x10'3/uL RBC 4.16 (L) 4.20 - 5.40 x10'6/uL HGB 12.7 12.0 - 16.0 G/DL HCT 38.0 38.0 - 48.0 % MCV 91.3 81.0 - 99.0 FL MCH 30.5 27.0 - 31.0 PG MCHC 33.4 32.0 - 36.0 G/DL RDW 13.2 11.5 - 14.5 % PLT 260 130 - 400 x10'3/uL MPV 11.8 9.3 - 12.2 FL DIFFERENTIAL TYPE AUTOMATED DIFFERENTIAL NEUTROPHILS 61.6 % LYMPHOCYTES 32.1 % MONOCYTES 4.5 % EOSINOPHILS 0.8 % BASOPHILS 0.7 % IMMATURE GRANS 0.3 % ABS. NEUTROPHILS TOTAL 5.54 1.80 - 7.70 x10'3/uL ABS. LYMPHOCYTES 2.88 1.00 - 4.80 x10'3/uL ABS. MONOCYTES 0.40 0.24 - 0.86 x10'3/uL ABS. EOSINOPHILS 0.07 0.04 - 0.36 x10'3/uL ABS. BASOPHILS 0.06 0.01 - 0.08 x10'3/uL ABS. IMMATURE GRANULOCYTES 0.03 0.00 - 0.49 x10'3/uL COMPREHENSIVE METABOLIC PANEL Result Value Ref Range GLUCOSE 121 (H) 70 - 99 MG/DL BUN 15 7 - 18 MG/DL CREATININE S/P/B 0.97 0.55 - 1.02 MG/DL SODIUM 139 136 - 145 MMOL/L POTASSIUM 4.0 3.5 - 5.1 MMOL/L CHLORIDE S/P/B 110 (H) 100 - 108 MMOL/L CO2 26.9 21 - 32 MMOL/L CALCIUM 9.5 8.5 - 10.1 MG/DL BILIRUBIN TOTAL S/P/B 0.3 0.2 - 1.2 MG/DL TOTAL PROTEIN S/P/B 9.0 (H) 6.4 - 8.2 G/DL ALBUMIN S/P/B 3.4 3.4 - 5.0 G/DL AST 16 15 - 37 U/L ALT 23 14 - 55 U/L ALKALINE PHOSPHATASE S/P/B 131 50 - 136 U/L ANION GAP 2.1 (L) 5 - 15 MMOL/L BUN CREATININE RATIO 15.5 6 - 26 A/G RATIO 0.6 (L) 1.0 - 2.0 RATIO GFR ESTIMATE 71 (L) >90 ML/MIN/1.73 M2 LIPASE Result Value Ref Range LIPASE 147 73 - 393 UNITS/L URINALYSIS Result Value Ref Range Specimen Type URINE CLEAN CATCH COLOR (U) DARK YELLOW TRANSPARENCY TURBID Specific Hagan (U) 1.006 1.001 - 1.030 U PH 5.5 5.0 - 9.0 LEUKOCYTE ESTERASE 500 (A) NEGATIVE NITRITES 1+ (A) NEGATIVE PROTEIN (U) 50 (H) <30 MG/DL URINE GLUCOSE NORMAL NORMAL MG/DL U KETONES NEGATIVE NEGATIVE MG/DL UROBILINOGEN NORMAL NORMAL MG/DL BILIRUBIN (U) NEGATIVE NEGATIVE MG/DL BLOOD 3+ (A) NEGATIVE CULTURE & SENSITIVITY INDICATED? SPECIMEN SETUP FOR CULTURE Renal Epi FEW /HPF MUCUS RARE /LPF WBC/HPF >100 (H) <6 /HPF RBC/HPF >100 (H) <6 /HPF Budding Yeast FEW (A) NONE /HPF SQUAMOUS EPITHELIALS RARE /HPF RADIOLOGY CT ABD+PEL W IV CON ONLY Final Result by User, [id number] (10/29 132) EXAMINATION: CT ABDOMEN AND PELVIS WITH CONTRAST EXAM DATE/TIME: 10/29/2021 12:41 PM REASON FOR EXAM: Pyelonephritis, uncomplicated COMPARISON: 04/15/2021 TECHNIQUE: Axial imaging of the abdomen and [...] FINDINGS: Abdomen: Adrenal glands: Unremarkable. Kidneys: Chronic dilatation of the right calyces and renal pelvis. No cortical changes to indicate pyelonephritis. 2 mm nonobstructing calculus upper pole right kidney. 4 mm nonobstructing calculus interpolar left kidney. No obstructing calculus. Spleen: Calcified granulomas indication granulomatous disease. Otherwise unremarkable spleen. Stomach and duodenum: Unremarkable. Gallbladder: Partially filled and grossly unremarkable. Pancreas grossly unremarkable. Hepatic parenchyma are within normal limits with no evidence of intrahepatic biliary dilatation or mass. Portal vein patent. No mesenteric lymphadenopathy or evidence of small bowel obstruction. No free fluid or free air. No evidence of retroperitoneal lymphadenopathy. No evidence of an abdominal aortic aneurysm. Scattered fecal material and gas throughout the colon without evidence of mass or dilatation. Appendix not inflamed. Pelvis: Urinary bladder and rectum are unremarkable. On bone windows, no evidence of suspicious skeletal lesion or acute compression fracture deformity. Limited evaluation of the lower thorax demonstrates no acute abnormality. ===== IMPRESSION:===== 1. Stable chronic dilatation of the right renal calyces and pelvis. No signs of acute pyelonephritis. No obstructing calculus. Ongoing ureteropelvic junction obstruction cannot be excluded with this appearance. Clinical follow-up recommended. 2. Single right and single left nonobstructing renal calculi. 3. No free fluid or free air. Appendix normal. Referred By: Interpreted By: Isaías Jones MD, 10/29/2021 1:10 PM MEDS GIVEN IN ER: Medications cefTRIAXone (ROCEPHIN) 1 g in sodium chloride 0.9 % 50 mL IVPB (has no administration in time range) ondansetron (ZOFRAN) injection 4 mg (4 mg Intravenous Given 10/29/21 1145) morphine injection 4 mg (4 mg Intravenous Given 10/29/21 1146) iopamidol (ISOVUE-370) 76 % injection 100 mL (100 mLs Intravenous Given 10/29/21 1305) ED COURSE & MEDICAL DECISION MAKING Pertinent Labs & Imaging studies reviewed. (See chart for details) No evidence of pyelo. Pt has only been on macrobid for 24hrs. Will give IV ceftriaxone, add on keflex and have pt continue abx. ? Disposition Discussion: I have discussed today's findings with the patient and provided information regarding the likely diagnosis. The patient has been given information regarding their treatment, follow up and concerning symptoms for which they should seek urgent or emergent attention. I have expressed the the importance of seeking attention should there be any new, or worsening symptoms or persistence of their condition. The patient is stable at discharge and has verbalized understanding of these instructions. DATE: 10/29/2021 2:39 PM PATIENT: Lena Mcneal Discharge Clinical Impressions: UTI Discharge Condition: stable Discharge Disposition: Patient discharge to home with keflex I spent time answering the patient's questions. Discharge instructions using teach back, understanding assessed and validated. 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 to the exit gag writer discharge instructions for details surrounding the discharge plan. I did reiterate with the patient that if an urgent need for immediate follow up comes up, not to hesitate to return to the ED. CYNTHIA Garsia PA 10/29/21 1442 Cosigned by Hubert Guzman MD at 10/29/2021 5:27 PM CDT * CYNTHIA Saravia - 10/29/2021 11:06 AM CDT [place], [place] EMERGENCY DEPARTMENT ENCOUNTER Medical Screening Examination 10/29/21 11:07 AM Chief Complaint : Back Pain and Urinary Symptoms HPI : Lena Mcneal is a 51-year-old female who presents for evaluation of right flank pain. Known UTI being treated with Macrobid and pyridium, notes symptoms worsening. Vital Signs: Filed Vitals: 10/29/21 1102 BP: (!) 177/118 Pulse: 95 Resp: 18 Temp: 98.3 ??F (36.8 ??C) TempSrc: Oral SpO2: 99% Weight: 83.5 kg (184 lb) Height: 5' 6 (1.676 m) Physical exam: A brief physical exam was completed to facilitate/expedite patient care. Plan: Necessary labs/imaging/medications ordered to initiate pt care. CYNTHIA Saravia 10/29/21 1107 Cosigned by Hubert Guzman MD at 10/29/2021 5:27 PM CDT * Jorje Fraser RN - 10/29/2021 11:03 AM CDTSummary: Flank pain/UTI Pt to ED via POV with c/o right flank pain x 1 week, patient states she's been getting Tx for a UTIby PMD x 3 days with Macrobid and Pyridium, but S/S seem to be worsening. Frequency worsening and continues to burn when she urinates. Denies N/V/Dizzy, does endorse a NIELSON documented in this encounter Plan of Treatment Upcoming Encounters Date Type Department Care Team (Late st Contact Info) Description 03/14/2024 11:45 AM PENS AND PENCILS REPAIRER Office Visit [facility] [phone] Marvin Mckeon MD [address] [place], [place] [id number] 03/20/2024 11:30 AM PENS AND PENCILS REPAIRER Office Visit [facility] - [place] [address] [place] [id number] Yasmin Segura II, MD [address] [place], [place] [id number] documented as of this encounter Procedures Procedure Name Priority Date/Time Associated Diagnosis Comments CT ABD+PEL W CON STAT 10/29/2021 1:04 PM CDT HC URINALYSIS AUTO W/O MICRO STAT 10/29/2021 11:49 AM CDT URINE BACTERIA CULTURE Routine 11:49 AM CDT COMPREHENSIVE METABOLIC PANEL STAT 10/29/2021 11:49 AM CDT CBC W/DIFF AUTOMATED STAT 10/29/2021 11:49 AM CDT LIPASE STAT 10/29/2021 11:49 AM CDT documented in this encounter Results * CT ABD+PEL W IV CON ONLY (10/29/2021 1:04 PM CDT) Anatomical Region Laterality Modality Abdomen Computed Tomogra phy 10/29/2021 1:10 PM CDT Impressions 10/29/2021 1:23 PM CDT IMPRESSION:===== 1. ?? Stable chronic dilatation of the right renal calyces and pelvis. ??No signs of acute pyelonephritis. ??No obstructing calculus. ??Ongoing ureteropelvic junction obstruction cannot be excluded with this appearance. ??Clinical follow-up recommended. 2. ??Single right and single left nonobstructing renal calculi. 3. ??No free fluid or free air. ??Appendix normal. Referred By: ?? Interpreted By: Isaías Jones MD, 10/29/2021 1:10 PM Narrative 10/29/2021 1:23 PM CDT EXAMINATION: CT ABDOMEN AND PELVIS WITH CONTRAST EXAM DATE/TIME: 10/29/2021 12:41 PM REASON FOR EXAM: Pyelonephritis, uncomplicated COMPARISON: 04/15/2021 TECHNIQUE: Axial imaging of the abdomen and [...] FINDINGS: Abdomen: Adrenal glands: Unremarkable. Kidneys: ??Chronic dilatation of the right calyces and renal pelvis. ??No cortical changes to indicate pyelonephritis. 2 mm nonobstructing calculus upper pole right kidney. ??4 mm nonobstructing calculus interpolar left kidney. No obstructing calculus. Spleen: ??Calcified granulomas indication granulomatous disease. ??Otherwise unremarkable spleen. Stomach and duodenum: ??Unremarkable. Gallbladder: ??Partially filled and grossly unremarkable. Pancreas grossly unremarkable. Hepatic parenchyma are within normal limits with no evidence of intrahepatic biliary dilatation or mass. Portal vein patent. No mesenteric lymphadenopathy or evidence of small bowel obstruction. No free fluid or free air. No evidence of retroperitoneal lymphadenopathy. No evidence of an abdominal aortic aneurysm. Scattered fecal material and gas throughout the colon without evidence of mass or dilatation. Appendix not inflamed. Pelvis: ??Urinary bladder and rectum are unremarkable. On bone windows, no evidence of suspicious skeletal lesion or acute compression fracture deformity. Limited evaluation of the lower thorax demonstrates no acute abnormality. ===== Procedure Note Isaías Jones MD - 10/29/2021 EXAMINATION: CT ABDOMEN AND PELVIS WITH CONTRAST EXAM DATE/TIME: 10/29/2021 12:41 PM REASON FOR EXAM: Pyelonephritis, uncomplicated COMPARISON: 04/15/2021 TECHNIQUE: Axial imaging of the abdomen and [...] FINDINGS: Abdomen: Adrenal glands: Unremarkable. Kidneys: Chronic dilatation of the right calyces and renal pelvis. Nocortical changes to indicate pyelonephritis. 2 mm nonobstructing calculus upper pole right kidney. 4 mm nonobstructingcalculus interpolar left kidney. No obstructing calculus. Spleen: Calcified granulomas indication granulomatous disease. Otherwiseunremarkable spleen. Stomach and duodenum: Unremarkable. Gallbladder: Partially filled and grossly unremarkable. Pancreas grossly unremarkable. Hepatic parenchyma are within normal limits with no evidence ofintrahepatic biliary dilatation or mass. Portal vein patent. No mesenteric lymphadenopathy or evidence of small bowel obstruction. Nofree fluid or free air. No evidence of retroperitoneal lymphadenopathy. No evidence of an abdominal aortic aneurysm. Scattered fecal material and gas throughout the colon without evidence ofmass or dilatation. Appendix not inflamed. Pelvis: Urinary bladder and rectum are unremarkable. On bone windows, no evidence of suspicious skeletal lesion or acutecompression fracture deformity. Limited evaluation of the lower thorax demonstrates no acuteabnormality. ===== IMPRESSION:===== 1. Stable chronic dilatation of the right renal calyces and pelvis. Nosigns of acute pyelonephritis. No obstructing calculus. Ongoingureteropelvic junction obstruction cannot be excluded with thisappearance. Clinical follow-up recommended. 2. Single right and single left nonobstructing renal calculi. 3. No free fluid or free air. Appendix normal. Referred By: Interpreted By: Isaías Jones MD, 10/29/2021 1:[address] us [address] Final Result * CULTURE URINE (10/29/2021 11:49 AM CDT) SPEC DESCRIPTION URINE CLEAN CATCH 10/29/2021 12:[address] [facility] SPECIAL REQUESTS NO SPECIAL REQUEST 10/29/2021 12:[address] [facility] CULTURE RESULT NO GROWTH 2 DAYS 10/31/2021 7:[address] [facility] URINE SPECIMEN OBTAINED BY CLEAN CATCH PROCEDURE / Unknown 10/29/2021 11:49 AM CDT 10/29/2021 12:11 PM CDT us Lex MARIE MICROBIOLOGY - GENERAL ORD ERABLES Final Result [facility] [address] [place] [address], * (ABNORMAL) URINALYSIS (10/29/2021 11:49 AM CDT) SPECIMEN TYPE URINE CLEAN CATCH 10/29/2021 11:[address] [facility] COLOR (U) DARK YELLOW 10/29/2021 12:[address] [facility] TRANSPARENCY TURBID 10/29/2021 12:[address] [facility] SPECIFIC GRAVITY (U) 1.006 1.001 - 1.030 10/29/2021 12:[address] [facility] U PH 5.5 5.0 - 9.0 10/29/2021 12:[address] [facility] LEUKOCYTES (U) 500(A) NEGATIVE 10/29/2021 12:[address] [facility] NITRITES 1+(A) NEGATIVE 10/29/2021 12:[address] [facility] PROTEIN (U) 50(H) <30 MG/DL 10/29/2021 12:[address] [facility] URINE GLUCOSE NORMAL NORMAL MG/DL 10/29/2021 12:[address] [facility] KETONES MG/DL (U) NEGATIVE NEGATIVE MG/DL 10/29/2021 12:[address] [facility] UROBILINOGEN NORMAL NORMAL MG/DL 10/29/2021 12:[address] [facility] BILIRUBIN (U) NEGATIVE NEGATIVE MG/DL 10/29/2021 12:[address] [facility] BLOOD (U) 3+(A) NEGATIVE 10/29/2021 12:[address] [facility] CULTURE & SENSITIVITY INDICATED? SPECIMEN SETUP FOR CULTURE 10/29/2021 12:[address] [facility] RENAL EPI FEW /HPF 10/29/2021 12:[address] [facility] MUCUS RARE /LPF 10/29/2021 12:[address] [facility] WBC/HPF >100(H) <6 /HPF 10/29/2021 12:[address] [facility] RBC/HPF >100(H) <6 /HPF 10/29/2021 12:[address] [facility] BUDDING YEAST FEW(A) NONE /HPF 10/29/2021 12:[address] [facility] SQUAMOUS EPITHELIALS RARE /HPF 10/29/2021 12:[address] [facility] URINE SPECIMEN OBTAINED BY CLEAN CATCH PROCEDURE / Unknown 10/29/2021 11:49 AM CDT us Al MARIE URINE ORDERABLES Final Result [facility] [address] [place] [address], [place] [phone] * LIPASE (10/29/2021 11:49 AM CDT) LIPASE 147 73 - 393 UNITS/L 10/29/2021 12:[address] [facility] 10/29/2021 11:4 9 AM CDT Al MARIE LABORATORY Final Result [facility] [address] [place] [address], [place] [phone] * (ABNORMAL) COMPREHENSIVE METABOLIC PANEL (10/29/2021 11:49 AM CDT) GLUCOSE 121(H) 70 - 99 MG/DL 10/29/2021 12:[address] [facility] BUN 15 7 - 18 MG/DL 10/29/2021 12:[address] [facility] CREATININE S/P/B 0.97 0.55 - 1.02 MG/DL 10/29/2021 12:[address] [facility] SODIUM S/P/B 139 136 - 145 MMOL/L 10/29/2021 12:[address] [facility] POTASSIUM S/P/B 4.0 3.5 - 5.1 MMOL/L 10/29/2021 12:[address] [facility] CHLORIDE S/P/B 110(H) 100 - 108 MMOL/L 10/29/2021 12:[address] [facility] CO2 26.9 21 - 32 MMOL/L 10/29/2021 12:[address] [facility] CALCIUM S/P/B 9.5 8.5 - 10.1 MG/DL 10/29/2021 12:[address] [facility] BILIRUBIN TOTAL S/P/B 0.3 0.2 - 1.2 MG/DL 10/29/2021 12:19 PM [facility] Comment: THIS ASSAY IS NOT RECOMMENDED FOR PATIENTS UNDERGOING TREATMENT WITH ELTROMBOPAG DUE TO THE POTENTIAL FOR FALSELY ELEVATED RESULTS. TOTAL PROTEIN S/P/B 9.0(H) 6.4 - 8.2 G/DL 10/29/2021 12:[address] [facility] ALBUMIN S/P/B 3.4 3.4 - 5.0 G/DL 10/29/2021 12:[address] [facility] AST 16 15 - 37 U/L 10/29/2021 12:19 PM [facility] ALT 23 14 - 55 U/L 10/29/2021 12:19 PM [facility] ALKALINE PHOSPHATASE S/P/B 131 50 - 136 U/L 10/29/2021 12:19 PM [facility] ANION GAP 2.1(L) 5 - 15 MMOL/L 10/29/2021 12:19 PM [facility] BUN CREATININE RATIO 15.5 6 - 26 10/29/2021 12:19 PM [facility] A/G RATIO 0.6(L) 1.0 - 2.0 RATIO 10/29/2021 12:19 PM [facility] GFR ESTIMATE 71(L) >90 ML/MIN/1.7 3 M2 10/29/2021 12:19 PM [facility] Comment: NOTE: eGFR is not calculated for patients <18 years of age. This is an estimated GFR calculation using the new CKD EPI creatinine equation without race and so does not require a correction factor for race. This estimated GFR should not be used for calculating drug doses. 10/29/2021 11:4 9 AM CDT us Al MARIE LABORATORY Final Result [facility] [address] [place] [address], * (ABNORMAL) CBC W/DIFF AUTOMATED (10/29/2021 11:49 AM CDT) WBC 9.0 4.5 - 11.0 x10'3/uL 10/29/2021 12:[address] [facility] RBC 4.16(L) 4.20 - 5.40 x10'6/uL 10/29/2021 12:[address] [facility] HGB 12.7 12.0 - 16.0 G/DL 10/29/2021 12:[address] [facility] HCT 38.0 38.0 - 48.0 % 10/29/2021 12:[address] [facility] MCV 91.3 81.0 - 99.0 FL 10/29/2021 12:[address] [facility] MCH 30.5 27.0 - 31.0 PG 10/29/2021 12:[address] [facility] MCHC 33.4 32.0 - 36.0 G/DL 10/29/2021 12:[address] [facility] RDW 13.2 11.5 - 14.5 % 10/29/2021 12:[address] [facility] PLT 260 130 - 400 x10'3/uL 10/29/2021 12:[address] [facility] MPV 11.8 9.3 - 12.2 FL 10/29/2021 12:[address] [facility] DIFFERENTIAL TYPE AUTOMATED DIFFERENTIAL 10/29/2021 12:[address] [facility] NEUTROPHILS % 61.6 % 10/29/2021 12:[address] [facility] LYMPHOCYTES % 32.1 % 10/29/2021 12:[address] [facility] MONOCYTES % 4.5 % 10/29/2021 12:[address] [facility] EOSINOPHILS 0.8 % 10/29/2021 12:[address] [facility] BASOPHILS 0.7 % 10/29/2021 12:[address] [facility] IMMATURE GRANS % 0.3 % 10/30/19 12:[address] [facility] ABS. NEUTROPHILS TOTAL 5.54 1.80 - 7.70 x10'3/uL 10/29/2021 12:[address] [facility] ABS. LYMPHOCYTES 2.88 1.00 - 4.80 x10'3/uL 10/29/2021 12:[address] [facility] ABS. MONOCYTES 0.40 0.24 - 0.86 x10'3/uL 10/29/2021 12:[address] [facility] ABS. EOSINOPHILS 0.07 0.04 - 0.36 x10'3/uL 10/29/2021 12:[address] [facility] ABS. BASOPHILS 0.06 0.01 - 0.08 x10'3/uL 10/29/2021 12:[address] [facility] ABS. IMMATURE GRANULOCYTES 0.03 0.00 - 0.49 x10'3/uL 10/29/2021 12:[address] [facility] 10/29/2021 11:4 9 AM CDT us Al MARIE LABORATORY Final Result [facility] [address] [place] [address], documented in this encounter Visit Diagnoses Diagnosis UTI (urinary tract infection)- Primary Urinary tract infection, site not specified documented in this encounter Administered Medications Inactive Administered Medications - up to 3 most recent administrations Medication Order MAR Action Action Date Dose Rate Site cefTRIAXone (ROCEPHIN) 1 g in sodium chloride 0.9 % 50 mL IVPB 1 g, Intravenous, at 100 mL/hr, Once, 1 dose, On 10/29/21 at 1430 New Bag 10/29/2021 3:38 PM CDT 1 g 100 mL/hr iopamidol (ISOVUE-370) 76 % injection 100 mL 100 mL, Intravenous, IMG once as needed, Contrast, 1 dose, Starting on 10/29/21 at 1241, Until 10/29/21 at 1305 Given 10/29/2021 1:05 PM CDT 100 mLs ketorolac (TORADOL) injection 15 mg 15 mg, Intravenous, Once, 1 dose, On 10/29/21 at 1445, For IV administration, give over 15 seconds. Given 10/29/2021 2:50 PM CDT 15 mg morphine injection 2 mg 2 mg, Intravenous, Once, 1 dose, On 10/29/21 at 1600 Given 10/29/2021 4:12 PM CDT 2 mg morphine injection 4 mg 4 mg, Intravenous, Once, 1 dose, On 10/29/21 at 1115 Given 10/29/2021 11:46 AM CDT 4 mg ondansetron (ZOFRAN) injection 4 mg 4 mg, Intravenous, Once, 1 dose, On 10/29/21 at 1115, IV push over 2-5 minutes. Given 10/29/2021 11:45 AM CDT 4 mg documented in this encounter Active and Recently Administered Medications Times are shown in CDT. Scheduled Medication Order 10/27/2021 10/28/2021 10/29/2021 cefTRIAXone (ROCEPHIN) 1 g in sodium chloride 0.9 % 50 mL IVPB (COMPLETED) 1 g, Intravenous, at 100 mL/hr, Once, 1 dose, On 10/29/21 at 1430 1538 (New Bag - Prov ider: Julita Islas RN - Comment: sent from central pharmacy)1612 (Infusion Stop Time - Provider: uJlita Islas RN) ketorolac (TORADOL) injection 15 mg (COMPLETED) 15 mg, Intravenous, Once, 1 dose, On 10/29/21 at 1445, For IV administration, give over 15 seconds. 1450 (Given - Provid er: Julita Islas RN) morphine injection 2 mg (COMPLETED) 2 mg, Intravenous, Once, 1 dose, On 10/29/21 at 1600 1612 (Given - Provid er: Julita Islas RN) morphine injection 4 mg (COMPLETED) 4 mg, Intravenous, Once, 1 dose, On 10/29/21 at 1115 1146 (Given - Provid er: Kenia Vazquez RN) ondansetron (ZOFRAN) injection 4 mg (COMPLETED) 4 mg, Intravenous, Once, 1 dose, On 10/29/21 at 1115, IV push over 2-5 minutes. 1145 (Given - Provid er: Kenia Vazquez RN) PRN Medication Order 10/27/2021 10/28/2021 10/29/2021 iopamidol (ISOVUE-370) 76 % injection 100 mL (COMPLETED) 100 mL, Intravenous, IMG once as needed, Contrast, 1 dose, Starting on 10/29/21 at 1241, Until 10/29/21 at 1305 1305 (Given - Provid er: Padmaja Sahni, RT) documented in this encounter Additional Health Concerns Assessment Noted Time PHQ-9 Depression Total Score: 0 03/08/19 9:30 AM PENS AND PENCILS REPAIRER documented as of this encounter Care Teams Seam Checker Relationship Specialty Start Date End Date Yasmin Segura II, MD [address] [place] [id number] PCP - General FAMILY PRACTICE 03/09/21 documented as of this encounter
--- OUTSIDE RECORDS SUMMARY | 2024-03-02 22:28 | XMS_ITS | Encounter Summary ---
Author Organization [facility] Address [address] [place] [address]. [place] [address] [place] [address] Care Team Providers Care Soda Clerk Name Role Phone Colton SILVEIRA MD, Yasmin Rushing Primary Care Provider Reason for Visit * Reason Comments TCM Chest pain Encounter Details Date Type Department Care Team (Late st Contact Info) Description 07/14/2021 2:40 PM CDT Office Visit [facility] Family Medicine [place] [address] [place] [address] Yasmin Segura II, MD [address] [place] [address] TCM (Chest pain) Social History Tobacco Use Types Packs/Day [...] Sign Reading Time Taken Comments Blood Pressure 132/65 07/14/2021 2:39 PM CDT Pulse 90 07/14/2021 2:39 PM CDT Temperature 36.6 ??C (97.9 ??F) 07/14/2021 2:39 PM CD T Respiratory Rate - - Oxygen Saturation 100% 07/14/2021 2:39 PM CDT Inhaled Oxygen Concentration - - Weight 85.7 kg (189 lb) 07/14/2021 2:39 PM CDT Height - - Body Mass Index 30.51 07/09/2021 3:13 PM CDT documented in this [...] Notes * Yasmin Segura II, MD - 07/14/2021 2:40 PM CDT Images from the original note were not included. [facility] FAMILY [address] [address] TCM VISIT Encounter Date: 07/14/2021 Chief Complaint: TCM (Chest pain) History of Present Illness: Follow up call to patient post hospitalization ?? Date of hospital discharge: 07/11/2021 ? Patient discharged from: [facility] ?? Discharge diagnosis/diagnoses: Chest pain ?? Procedures performed while inpatient: Yes. Stress test and USE EKG ?? Begin the medication reconciliation process (completed at first face to face visit) Any follow up services needed: Yes. With Dr. Segura ?? Education on self management: Yes. ?? Assess adherence with treatment (medication) regimen and provide support. ?? Does patient have access to care and services (rides, etc)? Yes. ?? Appointment scheduled for follow up in the office (7 days if high complexity or within 14 days for medium complexity) Appointment Date: 07/14/2021 Time: 2:40 PM ? 51-year-old female here for TCM visit after recent discharge from hospital for left-sided chest pain. Patient was worked up extensively for cardiac and possible pulmonary emboli causes without finding a source. Patient was ruled out for myocardial infarction and discharged to follow-up in clinic. Patient reports that she still has some left-sided chest pain which comes and goes throughout the day. Here for evaluation and treatment recommendations. I personally reviewed the patient's discharge summary in its entirety and reconciled her medications. Review Of Systems: Positive ROS items as [...] by mouth nightly.) 90 tablet 3 ??? doxycycline hyclate 100 [...] by mouth daily. 90 tablet 3 ??? atorvastatin 40 MG tablet Take 1 tablet (40 mg total) by mouth nightly at bedtime for 30 days. 30 tablet 0 No current facility-administered medications for this visit. Allergies Allergen Reactions ??? Fish Oil Unknown ??? Amoxicillin Rash ??? Penicillins Rash Objective: Filed Vitals: 05/26/22 1439 BP: 132/65 Pulse: 90 Temp: 97.9 ??F (36.6 ??C) TempSrc: Temporal SpO2: 100% Weight: 85.7 kg (189 lb) [...] General: Skin is warm and dry. Comments: Folliculitis on face resolved. Neurological: Mental Status: She is alert and [...] Myocardial Perfusion Imaging Pat.Name: LENA YOUNGBLOOD Pat.ID: [id number] .Date: 07/11/2021 Refer.MD: Eduarda [id number] Exam Time: 8:47:00 AM Study Type:MARINO NC HT MUSCLE IMAGE SPECT MULTI Height: 66in Weight: 186lb BSA: 1.94 m2 Age: 2 1970,51Y Sex: FEMALE Sonogrphr: Roxana Simmons [facility] Pat. Stat.:Inpatient Reason for Study: Chest pain, Shortness of breath History / Clinical: elevated D-dimer, Hypertension, Diabetes, Renal Insufficiency Procedures: Nuclear Stress Test with Lexiscan Race: -Japanese Surgery: Echocardiogram ++++++++++++++++++++++++++++++++++++ SUMMARY: ++++++++++++++++++++++++++++++++++++ Stress conclusion: [...] 133/80 O2 Sat 100 % Max RPP [id number] Symptoms and Complications: Terminated Protocol completed Symptoms Shortness of breath, Abdominal pain, Leg fatigue Complications None Stress ECG Interp No ischemic changes Signed 07/11/2021 01:02 PM Stacie Oconnell M.D. USE ECHOCARDIOGRAM W CON Narrative Echocardiography Report Pat.Name: LENA YOUNGBLOOD Pat.ID: [id number] .Date: 07/10/2021 Exam Time: 8:23:00 AM Study Type:ECHO WITH CARDIAC DOPPLER COMP Height: 66in Weight: 188.61lb BSA: 1.95 m2 Age: 2 1970,51Y Sex: FEMALE BP: 125/81 HR: 87 bpm Sonogrphr: KALINA LOPEZ [facility] Reason for Study: Chest pain History / Clinical: elevated D-dimer, Hypertension Procedures: 2D, M-mode, Doppler, Color Flow, Definity was used to enhance endocardial definition., Intraveneous saline contrast was used to help determine presence of intracardiac shunting. Race: -Japanese ++++++++++++++++++++++++++++++++++++ SUMMARY: ++++++++++++++++++++++++++++++++++++ The left ventricular systolic [...] 37.7 mm Right Ventricle 27.8 mm Major [place] 59.9 mm MMODE TA Tricuspid Annul 14.2 mm Signed 07/10/2021 12:36 PM Brianna Acosta M.D. [facility] DUPLEX LOW EXT NOHEMY Narrative VENOUS DUPLEX IMAGING BILATERAL LOWER EXTREMITY VASCULAR LAB Pat.Name: LENA YOUNGBLOOD Pat.ID: [id number] .Date: 07/09/2021 Refer.: [id number], Elissa gilman Exam Time: 8:29:00 PM Study Type:MARINO VS Venous Duplex Legs NOHEMY Age: 2 1970,51Y Sex: FEMALE Sonogrphr: Reynaldo Blue, RVT Pat. Stat.:Inpatient Room: ED 20 History [...] - 99 mg/dL ECG 12 lead Narrative [facility] Test Date: 2021-07-09 Pat Name: [facility] Department: 41 Room: EXAM20 Gender: Female Security Tech: : 1970 Requested By: ANABELA PINEDA Order Number: [id number] Reading MD: Brianna Acosta Measurements Intervals [place] Rate: 95 P: 45 LA: 171 QRS: 17 QRSD: 79 T: 32 QT: 360 QTc: 453 Interpretive Statements SINUS RHYTHM WITH OCCASIONAL VENTRICULAR PREMATURE COMPLEXES NONSPECIFIC T-WAVE ABNORMALITY Compared to ECG 04/15/2021 22:40:25 Ventricular premature complex(es) now present T-wave abnormality still present ECG 12 lead Narrative [facility] [address] [place] [address] Test Date: 2021-07-09 Pat Name: [facility] Department: 41 Room: EXAM20 Gender: Female Security Tech: [id number] : 1970 Requested By: ANABELA PINEDA Order Number: [id number] Reading MD: Brianna Acosta Measurements Intervals [place] Rate: 96 P: 36 LA: 176 QRS: 10 QRSD: 86 T: 0 QT: 298 QTc: 376 Interpretive Statements SINUS RHYTHM WITH FREQUENT VENTRICULAR PREMATURE COMPLEXES MODERATE VOLTAGE CRITERIA FOR LVH, CONSIDER NORMAL VARIANT NONSPECIFIC T-WAVE ABNORMALITY ABNORMAL RHYTHM ECG Compared to ECG 07/09/2021 15:10:55 No significant changes ECG 12 lead Narrative [facility] Test Date: 2021-07-10 Pat Name: [facility] Department: 40 Room: [id number] Gender: Female Security Tech: [id number] : 1970 Requested By: EDUARDA CHESTER Order Number: [id number] Reading MD: Brianna Acosta Measurements Intervals [place] Rate: 89 P: 48 LA: 193 QRS: 26 QRSD: 90 T: -10 QT: 378 QTc: 461 Interpretive Statements SINUS RHYTHM WITH FREQUENT VENTRICULAR PREMATURE COMPLEXES NONSPECIFIC T-WAVE ABNORMALITY ABNORMAL RHYTHM ECG Compared to ECG 07/09/2021 17:11:30 No significant changes ECG 12 lead [facility] Test Date: 2021-07-10 Pat Name: [facility] Department: 40 Room: [id number] Gender: Female Security Tech: [id number] : 1970 Requested By: EDUARDA CHESTER Order Number: [id number] Reading MD: Brianna Acosta Measurements Intervals [place] Rate: 86 P: 45 LA: 207 QRS: 19 QRSD: 85 T: 32 QT: 378 QTc: 454 Interpretive Statements SINUS RHYTHM WITH OCCASIONAL VENTRICULAR PREMATURE COMPLEXES NONSPECIFIC T-WAVE ABNORMALITY Compared to ECG 07/10/2021 00:19:31 No significant changes ECG 12 lead Narrative [facility] Test Date: 2021-07-10 Pat Name: [facility] Department: 40 Room: [id number] Gender: Female Security Tech: [id number] : 1970 Requested By: EDUARDA CHESTER Order Number: [id number] Reading MD: Brianna Acosta Measurements Intervals [place] Rate: 88 P: 49 LA: 179 QRS: 11 QRSD: 83 T: -75 [...] importance of compliance with treatment. Assessment: 1. Other chest pain 2. Esophagitis due to doxycycline omeprazole 40 MG capsule 3. Type 2 diabetes mellitus with diabetic neuropathic arthropathy, with long- term current use of insulin ([facility]) 4. Hypercholesteremia 5. Primary hypertension Plan: Orders Placed This Encounter Medications ??? omeprazole 40 MG capsule 1. Other chest pain Patient was evaluated for cardiac and embolic sources without finding a clear cause. Patient's ultrasounds of her lower legs were negative and CT chest did not show any pulmonary emboli. Most likely cause is listed below. 2. Esophagitis due to doxycycline Reviewed symptom onset with patient. Her symptoms began after taking doxycycline for several days for her folliculitis. Most likely cause of her chest pain is esophagitis secondary to doxycycline. Wewill stop doxycycline as her skin has improved and the folliculitis has resolved. We will also treat her symptomatically with omeprazole 40 mg daily until she follows up next week. - omeprazole 40 MG capsule; Take 1 capsule (40 mg total) by mouth in the morning. Dispense: 30 capsule; Refill: 1 3. Type 2 diabetes mellitus with diabetic neuropathic arthropathy, with long- term current use of insulin ([facility]) Patient's hemoglobin A1c was checked in the hospital and found to be similar to her A1c in clinic. Patient will continue to monitor home blood sugars and bring those logs with her next week. 4. Hypercholesteremia Patient is tolerating her statin well without side effects. 5. Primary hypertension Patient's blood pressure is at goal today. No adjustment needed at this time. There are no discontinued medications. YASMIN SEGURA MD 07/14/2021 Portions of this note were dictated using [employer] speech recognition software. Occasional wrong wordor sound-alike substitutions may have occurred due to the inherent limitations of voice recognition software. Please read the chart carefully and recognize, using context, where the substitutions may have occurred. documented in this encounter Plan of Treatment Upcoming Encounters Date Type Department Care Team (Late st Contact Info) Description 03/14/2024 11:45 AM DIRECTOR OF PHYSICAL EDUCATION Office Visit [facility] [phone] Marvin Mckeon MD [facility] [address] [place] [address] 03/20/2024 11:30 AM DIRECTOR OF PHYSICAL EDUCATION Office Visit [facility] Family Medicine - [address] [place] [phone] Yasmin Segura II, MD [address] [place] [address] documented as of this encounter Visit Diagnoses Diagnosis Other chest pain- Primary Esophagitis due to doxycycline Other esophagitis Type 2 diabetes mellitus with diabetic neuropathic arthropathy, with long-term current use of insulin ([facility]) Hypercholesteremia Pure hypercholesterolemia Primary hypertension Unspecified essential hypertension documented in this encounter Additional Health Concerns Assessment Noted Time PHQ-9 Depression Total Score: 0 03/08/19 9:30 AM DIRECTOR OF PHYSICAL EDUCATION documented as of this encounter Care Teams Soda Clerk Relationship Specialty Start Date End Date Yasmin Segura II, MD [address] [place] [address] PCP - General FAMILY PRACTICE 03/09/21 documented as of this encounter
--- OUTSIDE RECORDS SUMMARY | 2024-03-02 22:28 | XMS_ITS | Encounter Summary ---
Author Organization [facility] Address [address] [place] [address]. [place], [place] [address] [place] [address] Care Team Providers Care Hunter Guide Name Role Phone Colton SILVEIRA MD, Abiodun Rushing Primary Care Provider Encounter Details Date Type Department Care Team (Latest Contact Info) Description 07/09/2021 Travel Social History Tobacco Use Types Packs/Day [...] or climbing stairs? Yes 07/09/2021 11:35 PM CDT Servando Sung RN Active * Question Answer Date of Assessment Author Status Do you have difficulty dressing or bathing? No 07/09/2021 11:35 PM Kayleen Hoover RN Active Because of a physical, mental, or emotional condition, do you have difficulty doing errands alone such as visiting a doctor's office or shopping? No 07/09/2021 11:35 PM Servando Hoover RN Active * RETIRED Are you deaf or do you have serious difficulty hearing Answer Date of Assessment Author Status No 04/15/2021 11:33 PM TUNNEL FORM PLACING SUPERVISOR Acti ve * RETIRED Are you blind or do you have serious difficulty seeing, even when wearing glasses? Answer Date of Assessment Author Status No 04/15/2021 11:33 PM TUNNEL FORM PLACING SUPERVISOR Acti ve * Do you have serious [...] st Contact Info) Description 03/14/2024 11:45 AM TUNNEL FORM PLACING SUPERVISOR Office Visit [facility] [phone] Marvin Mckeon MD Three [facility] [address] [place] [address] 03/20/2024 11:30 AM TUNNEL FORM PLACING SUPERVISOR Office Visit [facility] Family Medicine - [place] [address] [place] [phone] Abiodun Segura II, MD [address] [place] [address] documented as of this encounter Visit Diagnoses Not on filedocumented in this encounter Additional Health Concerns Assessment Noted Time PHQ-9 Depression Total Score: 0 03/08/19 9:30 AM TUNNEL FORM PLACING SUPERVISOR documented as of this encounter Care Teams Hunter Guide Relationship Specialty Start Date End Date Abiodun Segura II, MD [address] [place] [phone] PCP - General FAMILY PRACTICE 03/09/21 documented as of this encounter
--- OUTSIDE RECORDS SUMMARY | 2024-03-02 22:28 | XMS_ITS | Encounter Summary ---
Author Organization [facility] Address [address] [place] [address]. [place] [address] [place] [address] Care Team Providers Care Can Machine Operator Name Role Phone Colton SILVEIRA MD, Abiodun Rushing Primary Care Provider Encounter Details Date Type Department Care Team (Late st Contact Info) Description 10/28/2021 Orders Only [facility] Family Medicine - [place] [address] [place] [address] Abiodun Segura II, MD [address] [place] [address] Social History Tobacco Use Types [...] st Contact Info) Description 03/14/2024 11:45 AM CUSTOMER SUCCESS ASSOCIATE Office Visit [facility] [phone] Marvin Mckeon MD Three [facility] [address] [place], [place] [phone] 03/20/2024 11:30 AM CUSTOMER SUCCESS ASSOCIATE Office Visit [facility] Family Medicine - [address] [phone] Abiodun Segura II, MD [address] [place] [phone] documented as of this encounter Visit Diagnoses Diagnosis Cystitis- Primary Cystitis, unspecified documented in this encounter Additional Health Concerns Assessment Noted Time PHQ-9 Depression Total Score: 0 03/08/19 9:30 AM CUSTOMER SUCCESS ASSOCIATE documented as of this encounter Care Teams Can Machine Operator Relationship Specialty Start Date End Date Abiodun Segura II, MD [address] [place] [address] PCP - General FAMILY PRACTICE 03/09/21 documented as of this encounter
--- OUTSIDE RECORDS SUMMARY | 2024-03-02 22:28 | XMS_ITS | Encounter Summary ---
Author Organization [facility] Address [address] [place] [address]. [place], [place] [id number] [place] [id number] Care Team Providers Care Diabetes Territory Manager Name Role Phone Colton SILVEIRA MD, Yasmin Rushing Primary Care Provider Reason for Referral * Consultation (Routine) - Closed Specialty Diagnoses / Procedures Referred By Lyla chaney Referred To Contact DERMATOLOGY Diagnoses Folliculitis Procedures OFFICE/OUTPT VISIT,NEW,LEVL III OFFICE/OUTPT VISIT,NEW,LEVL IV OFFICE/OUTPT VISIT,NEW,LEVL V OFFICE/OUTPT VISIT,EST,LEVL III OFFICE/OUTPT VISIT,EST,LEVL IV OFFICE/OUTPT VISIT,EST,LEVL V Yasmin Valenzuela II, MD [address] [place] [address] Phone: tel: fax: Soham Bettencourt MD [address] [place] [address] Phone: tel: fax: Referral ID Status Reason Start Date Expiration Date V isits Requested Visits Authorized [id number] Closed Specialty Services 10/20/2021 04/18/2022 6 6 Scheduling Instructions 51yo female with recurrent bouts of folliculitis on face and neck. Please evaluate and treat. Thanks. Reason for Visit * Reason Comments Skin Problem Patient c/o a itchy breakout on her face Encounter Details Date Type Department Care Team (Late st Contact Info) Description 09/29/2021 9:00 AM CDT Office Visit [facility] Family Medicine - [place] [address] [place] [phone] Yasmin Valenzuela II, MD [address] [place], [place] [id number] Skin Problem (Patient c/o a itchy breakout on her face) Social History Tobacco Use Types Packs/Day Years [...] Sign Reading Time Taken Comments Blood Pressure 142/84 09/29/2021 10:47 AM CDT Pulse 93 09/29/2021 8:56 AM CDT Temperature 37.1 ??C (98.8 ??F) 09/29/2021 8:56 AM CD T Respiratory Rate - - Oxygen Saturation 100% 09/29/2021 8:56 AM CDT Inhaled Oxygen Concentration - - Weight 83 kg (183 lb) 09/29/2021 8:56 AM CDT Height - - Body Mass [...] Hoover RN Active documented in this encounter Progress Notes * Yasmin Valenzuela II, MD - 09/29/2021 9:00 AM CDT Images from the original note were not included. [facility] FAMILY [address] [address] OFFICE FOLLOW UP NOTE Encounter Date: 09/29/2021 Chief Complaint: Skin Problem (Patient c/o a itchy breakout on her face) History of Present Illness: 51-year-old female here for recurrent pruritic folliculitis of her lower face and neck which is worsened over the past week. Patient is previously treated with doxycycline which caused palpitations and esophagitis and caused patient to be admitted to the hospital. She would like to avoid that treatment. Patient is otherwise doing well today. She does report that she missed her blood pressure medicine yesterday and today secondary to interruptions in her schedule secondary to family stressors. Review Of Systems: Positive ROS items as [...] mg by mouth nightly at bedtime. ??? clindamycin (CLEOCIN) 300 MG capsule Take 1 capsule (300 mg total) by mouth 3 (three) times daily for 10 days. 30 capsule 0 ??? cyclobenzaprine 10 MG tablet Take 1 [...] Rash ??? Penicillins Rash Objective: Filed Vitals: 09/29/21 0856 09/29/21 1047 BP: (!) 153/102 (!) 142/84 Pulse: 93 Temp: 98.8 ??F (37.1 ??C) TempSrc: Temporal SpO2: 100% Weight: 83 [...] importance of compliance with treatment. Assessment: 1. Folliculitis clindamycin (CLEOCIN) 300 MG capsule Ambulatory referral to Dermatology 2. Primary hypertension 3. Type 2 diabetes mellitus with diabetic neuropathic arthropathy, with long- term current use of insulin ([facility]) Plan: Orders Placed This Encounter Medications ??? clindamycin (CLEOCIN) 300 MG capsule 1. Folliculitis Folliculitis is most likely secondary to staph infections. We will treat with clindamycin 300 mg 3 times a day for 10 days and we will consult dermatology to rule out other etiologies due to its recurrent nature. - clindamycin (CLEOCIN) 300 MG capsule; Take 1 capsule (300 mg total) by mouth 3 (three) times daily for 10 days. Dispense: 30 capsule; Refill: 0 - Ambulatory referral to Dermatology 2. Primary hypertension Patient's blood pressure is elevated today likely secondary to not taking her medications. Patient to restart her medications and will call if her blood pressures are elevated. Patient will otherwisefollow-up in November as scheduled. 3. Type 2 diabetes mellitus with diabetic neuropathic arthropathy, with long- term current use of insulin ([facility]) Patient's last hemoglobin A1c as noted above. This is near goal. We will plan to check hemoglobin A1c at her follow-up appointment in November. There are no discontinued medications. YASMIN VALENZUELA MD 09/29/2021 Portions of this note were dictated using Kwarter speech recognition software. Occasional wrong wordor sound-alike substitutions may have occurred due to the inherent limitations of voice recognition software. Please read the chart carefully and recognize, using context, where the substitutions may have occurred. documented in this encounter Plan of Treatment Upcoming Encounters Date Type Department Care Team (Late st Contact Info) Description 03/14/2024 11:45 AM GLASS CUTTING MACHINE FEEDER Office Visit [facility] [phone] Marvin Mckeon MD [facility] [address] [facility] [place], [place] [phone] 03/20/2024 11:30 AM GLASS CUTTING MACHINE FEEDER Office Visit [facility] Family Medicine - [place] [address] Yasmin Valenzuela II, MD [address] [place] [address] Scheduled Referrals Name Type Priority Associated Diagnoses Orde r Schedule Ambulatory referral to Dermatology Referral Routine Folliculitis Ordered: 09/29/2021 documented as of this encounter Visit Diagnoses Diagnosis Folliculitis- Primary Other specified disease of hair and hair follicles Primary hypertension Unspecified essential hypertension Type 2 diabetes mellitus with diabetic neuropathic arthropathy, with long-term current use of insulin ([facility]) documented in this encounter Additional Health Concerns Assessment Noted Time PHQ-9 Depression Total Score: 0 03/08/19 22 9:30 AM GLASS CUTTING MACHINE FEEDER documented as of this encounter Care Teams Diabetes Territory Manager Relationship Specialty Start Date End Date aYsmin Valenzuela II, MD [address] [place] [address] PCP - General FAMILY PRACTICE 03/09/21 documented as of this encounter
--- OUTSIDE RECORDS SUMMARY | 2024-03-02 22:29 | XMS_ITS | Encounter Summary ---
Author Organization [facility] Address [address] [place] [address]. [place] [address] [place] [address] Care Team Providers Care Campus Police Officer Name Role Phone Colton SILVEIRA MD, Abiodun Rushing Primary Care Provider Reason for Referral * Consultation/Treatment (Routine) - Closed Specialty Diagnoses / Procedures Referred By Lyla t Referred To Contact OPHTHALMOLOGY Diagnoses Diabetic eye exam ([facility]) Abiodun Segura II, MD [address] [place] [address] Phone: tel: fax: [facility] [address] [place] [address] Phone: tel: fax: Referral ID Status Reason Start Date Expiration Date V isits Requested Visits Authorized [id number] Closed Specialty Services 07/20/2021 01/16/2022 6 6 Scheduling Instructions Patient has upcoming apt with [facility] on 07/27/21 Reason for Visit * Reason Onset Date Comments Other 06/29/2021 Encounter Details Date Type Department Care Team (Late st Contact Info) Description 06/29/2021 Telephone [facility] Family [facility] - [place] [address] [place] [phone] Abiodun Segura II, MD [address] [place] [address] Other Social History Tobacco Use Types Packs/Day [...] suspected to have Coronavirus/COVID-19? No / Unsure 06/21/2021 12:29 PM CDT documented as of this encounter Functional Status * RETIRED Are you deaf or do you have serious difficulty hearing Answer Date of Assessment Author Status No 04/15/2021 11:33 PM FIELDWORK COORDINATOR Acti ve * RETIRED Are you blind or do you have serious difficulty seeing, even when wearing glasses? Answer Date of Assessment Author Status No 04/15/2021 11:33 PM FIELDWORK COORDINATOR Acti ve * Do you have [...] Date Author Status No 04/15/2021 11:33 PM FIELDWORK COORDINATOR Erica Pope RN Active documented in this encounter Progress Notes * Laura Mccartney MA - 06/30/2021 9:13 AM CDT faxed * Shira Shi PA-C - 06/29/2021 6:36 PM CDT Referral signed * Laura Mccartney MA - 06/29/2021 3:21 PM CDT Patient stated that for her Yearly check Dx: Yearly check Please sign pending referral * Hi Barrera - 06/29/2021 3:11 PM CDT Pt is needing a referral to be seen @ [facility] in [place], [place]. Pt has an appointment July. Pt has [facility] Insurance Pt can be reached @ [phone] [facility] Contact fax- [phone] documented in this encounter Plan of Treatment Upcoming Encounters Date Type Department Care Team (Late st Contact Info) Description 03/14/2024 11:45 AM FIELDWORK COORDINATOR Office Visit [facility] [phone] Marvin Mckeon MD [facility] [address] [place] [address] 03/20/2024 11:30 AM FIELDWORK COORDINATOR Office Visit [facility] Family Medicine - [address] [place] [address] Abiodun Segura II, MD [address] [place] [address] Scheduled Referrals Name Type Priority Associated Diagnoses Orde r Schedule Ambulatory Referral to Ophthalmology Referral Routine Diabetic eye exam ([facility]) Ordered: 06/29/2021 documented as of this encounter Visit Diagnoses Diagnosis Diabetic eye exam ([facility])- Primary Examination of eyes and vision documented in this encounter Additional Health Concerns Assessment Noted Time PHQ-9 Depression Total Score: 0 03/08/19 22 9:30 AM FIELDWORK COORDINATOR documented as of this encounter Care Teams Campus Police Officer Relationship Specialty Start Date End Date Abiodun Segura II, MD [address] [place] [address] PCP - General FAMILY PRACTICE 03/09/21 documented as of this encounter
--- OUTSIDE RECORDS SUMMARY | 2024-03-02 22:29 | XMS_ITS | Encounter Summary ---
Author Organization [facility] Address [address] [place] [address]. [place] [address] [place] [address] Care Team Providers Care Glassworker Name Role Phone Colton SILVEIRA MD, Yasmin Rushing Primary Care Provider Reason for Visit * Reason Comments Follow Up - Diabetes with labs Encounter Details Date Type Department Care Team (Late st Contact Info) Description 03/21/2021 9:40 AM EMT INTERMEDIATE Office Visit [facility] Family [facility] [address] [place] [address] Yasmin Valenzuela II, MD [address] [place] [address] Follow Up - Diabetes (with labs) Social History Tobacco Use Types Packs/Day Years Used Date Smoking Tobacco: Never Smokeless Tobacco: Never Alcohol Use Standard Drinks/Week Comments No 0 (1 standard drink = 0.6 oz pur e alcohol) PHQ-2 Answer Date Recorded PHQ-2 Score - If the patient scores above 3, please move on to questions 3-9 0 03/08/2021 Comments No Sex and Gender Information Value Date Recorded Sex Assigned at Female 12/17/2021 2:07 AM CDT Legal Sex Female 2:58 PM CDT Gender Identity Female 12/17/2021 2:07 AM CDT Sexual Orientation Straight 12/17/2021 2: 07 AM CDT COVID-19 Exposure Response Date Recorded In the last month, have you been in contact with someone who was confirmed or suspected to have Coronavirus / COVID-19? No / Unsure 03/21/2021 9:39 AM EMT INTERMEDIATE documented as of this encounter Last Filed Vital Signs Vital Sign Reading Time Taken Comments Blood Pressure 134/84 03/21/2021 9:57 AM EMT INTERMEDIATE Pulse 84 03/21/2021 9:57 AM EMT INTERMEDIATE Temperature 36.5 ??C (97.7 ??F) 03/21/2021 9:57 AM CS T Respiratory Rate 15 03/21/2021 9:57 AM EMT INTERMEDIATE Oxygen Saturation 98% 03/21/2021 9:57 AM EMT INTERMEDIATE Inhaled Oxygen Concentration - - Weight 90 kg (198 lb 6.4 oz) 03/21/2021 9:57 AM EMT INTERMEDIATE Height - - Body Mass Index 32.02 03/08/2021 9:30 AM EMT INTERMEDIATE documented in this encounter Functional Status * RETIRED Are you deaf or do you have serious difficulty hearing Answer Date of Assessment Author Status No 08/12/2019 3:00 AM CDT Activ e * RETIRED Are you blind or do you have serious difficulty seeing, even when wearing glasses? Answer Date of Assessment Author Status Yes 08/12/2019 3:00 AM CDT Activ e * Do you have serious difficulty walking or climbing stairs? Answer Date of Assessment Author Status No 08/12/2019 3:00 AM CDT TottyShelby R N Active * Do you have difficulty dressing or bathing? Answer Date of Assessment Author Status Yes 08/12/2019 3:00 AM CDT AmoltyShelby R N Active * Because of a physical, mental, or emotional condition, do you have difficulty doing errands alone such as visiting a doctor's office or shopping? Answer Date of Assessment Author Status Yes 08/12/2019 3:00 AM CDT AmoltyShelby R N Active documented as of this encounter Mental Status * Because of a physical, mental, or emotional condition, do you have serious difficulty concentrating, remembering, or making decisions? Answer Entry Date Author Status No 08/12/2019 3:00 AM CDT TottyShelby R N Active documented in this encounter Progress Notes * Yasmin Valenzuela II, MD - 03/21/2021 9:40 AM CST Images from the original note were not included. [facility] [address] [address] OFFICE FOLLOW UP NOTE Encounter Date: 03/21/2021 Chief Complaint: Follow Up - Diabetes (with labs) History of Present Illness: 50-year-old female with history of diabetes, hypertension, chronic low back pain with sciatica, right-sided cortical renal thinning and likely stricture, and decreased vision here to follow-up after being seen by urology and to review recent lab work. Patient reports no changes since last visit andis planning to reschedule her eye appointment to have her left eye looked at. 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 She reports that urology did not have any immediate recommendations for her right-sided flank pain as they were not sure that stenting the right kidney would improve her pain. Review Of Systems: Positive ROS items as noted in HPI. All other Systems were reviewed and are negative. Patient Active Problem List Diagnosis ??? Chest pain ??? Hypercholesteremia ??? Hypertension ??? Nephrolithiasis ??? Type 2 diabetes mellitus (CMS/HCC) ??? Renal disorder ??? Chronic bilateral low back pain without sciatica ??? Callus of foot ??? Vision decreased Past Medical History: Diagnosis Date ??? Arthritis [...] Father ??? Stroke Sister ??? Hypertension Sister Social History Socioeconomic History ??? Marital status: [...] Substance and Sexual Activity ??? Alcohol use: No ??? Drug use: No ??? Sexual activity: [...] tablet (10 mg total) by mouth daily. 90 tablet 3 ??? cyclobenzaprine 10 MG tablet Take 1 tablet (10 mg total) by mouth 3 (three) times daily as needed for Muscle Spasms. 30 tablet 5 ??? Dulaglutide (TRULICITY) 3 MG/0.5ML Solution Pen-injector Inject 3 mg into the skin weekly. 12 pen 3 ??? HUMALOG MIX 75/25 (75-25) 100 UNIT/ML Suspension Take 55 units in AM and 50 units PM, this should be titrated depending on your blood sugar numbers. (Patient taking differently: Inject 55-65 Units into the skin see administration instructions. Take 65 units in AM and 55 units PM, this should betitrated depending on your blood sugar numbers.) 1 vial 1 ??? HYDROCHLOROTHIAZIDE 25 MG tablet Take 1 tablet by mouth once daily 90 tablet 0 ??? lisinopril 40 MG tablet Take 40 mg by mouth nightly. ??? meloxicam 15 MG tablet Take 1 tablet (15 mg total) by mouth daily. 30 tablet 1 ??? nitroglycerin 0.4 MG SL tablet [...] Misc USE 1 SYRINGE SUBCUTANEOUSLY TWICE DAILY 100 each5 ??? simvastatin 40 MG tablet Take 40 mg by mouth nightly at bedtime. ??? spironolactone 25 MG tablet Take 0.5 tablets (12.5 mg total) by mouth daily. 45 tablet 3 ??? Misc. Devices (PILL SPLITTER) Misc 1 Device by Does not apply route daily. 1 each 1 No current facility-administered medications for this visit. Allergies Allergen Reactions ??? Amoxicillin Rash ??? Penicillins Rash Objective: Filed Vitals: 03/21/21 0957 BP: 134/84 Pulse: 84 Resp: 15 Temp: 97.7 ??F (36.5 ??C) TempSrc: Oral SpO2: 98% Weight: 90 kg (198 lb 6.4 oz) Nursing note reviewed. Physical [...] or performed during the hospital encounter of 03/04/21 US RETROPERITONEAL COMP Narrative IMAGING STUDIES: US RETROPERITONEAL COMP DATE: 03/04/2021 10:27 AM HISTORY: 50yo female with right sided renal cortex thinning and hydronephrosis. Please evaluate forworsening. Thanks. 50-year-old female with right hydronephrosis and renal cortical thinning. Right flank pain for 6 months and becoming more constant. History of urinary tract infections. Reported painful urination and inability to completely empty the urinary bladder. COMPARISON: CT abdomen and pelvis with contrast 11/18/2020. DISCUSSION: Right kidney 11.1 x 5.6 x 5.4 cm. Dilated right renal calyces which was also the case on 11/18/2020 CT study. Only minimal right renalpelvic distention. On prior CT study, contrast within multiple renal calyces which limits evaluation for renal calcification. Left kidney 10.8 x 5.3 x 5.1 cm. No hydronephrosis or appreciable shadowing renal calcification. Probable 3 mm nonobstructing calcification in the mid to upper pole left kidney on 11/18/2020 CT study (axial image 55, coronal image 52, and sagittal image 32). Contrast in multiple left renal calyces limited evaluation for additional calcifications at that time. Normal color Doppler signal within both kidneys. Mild to moderately distended urinary bladder. No appreciable debris within the urinary bladder. No apparent focal urinary bladder wall thickening. On color Doppler imaging of the urinary bladder, bilateral ureteral jets visualized consistent with patent ureters. Incidental note made of multiple splenic granulomas. Impression IMPRESSION: 1. Chronic dilation of the right renal calyces. Only minimal right renal pelvis distention. 2. No left hydronephrosis. No appreciable shadowing calcification although probable 3 mm nonobstructing calcification in the mid to upper pole left kidney on 2020 CT study. 3. No appreciable acute urinary bladder abnormality. Ordered By: YASMIN VALENZUELA II Interpreted By: Angelito Tidwell, 03/04/2021 12:13 PM Counseling The patient and patient's family was counseled regarding instructions for management, patient and family education and importance of compliance with treatment. Assessment: 1. Type 2 diabetes mellitus with diabetic neuropathic arthropathy, with long- term current use of insulin ([facility]) Dulaglutide (TRULICITY) 3 MG/0.5ML Solution Pen-injector 2. Renal disorder COMPREHENSIVE METABOLIC PANEL 3. Primary hypertension 4. Chronic bilateral low back pain without sciatica cyclobenzaprine 10 MG tablet 5. Vision decreased Plan: Orders Placed This Encounter Medications ??? Dulaglutide (TRULICITY) 3 MG/0.5ML Solution Pen-injector ??? cyclobenzaprine 10 MG tablet 1. Type 2 diabetes mellitus with diabetic neuropathic arthropathy, with long- term current use of insulin ([facility]) Patient's hemoglobin A1C is above our goal. Options were discussed with patient and we will increase Trulicity dosing to 3 mg subcutaneously every week. Patient to follow-up with me in 1 month to review efficacy. She will continue to monitor home blood sugars. - Dulaglutide (TRULICITY) 3 MG/0.5ML Solution Pen-injector; Inject 3 mg into the skin weekly. Dispense: 12 pen; Refill: 3 2. Renal disorder We will continue risk factor control to include increasing Trulicity to lower her blood sugar we will check metabolic panel prior to follow-up. - COMPREHENSIVE METABOLIC PANEL; Future 3. Primary hypertension Patient's blood pressure is near goal today. No blood pressure medication change today. 4. Chronic bilateral low back pain without sciatica We will add Flexeril to her regiment as this is helped her muscle spasms in the past. - cyclobenzaprine 10 MG tablet; Take 1 tablet (10 mg total) by mouth 3 (three) times daily as needed for Muscle Spasms. Dispense: 30 tablet; Refill: 5 5. Vision decreased Patient will follow up with ophthalmology to have her left eye looked at for diabetic retinopathy. Medications Discontinued During This Encounter Medication Reason ??? TRULICITY 1.5 MG/0.5ML Solution Pen-injector Dose adjustment YASMIN VALENZUELA MD 03/21/2021 Portions of this note were dictated using [employer] speech recognition software. Occasional wrong wordor sound-alike substitutions may have occurred due to the inherent limitations of voice recognition software. Please read the chart carefully and recognize, using context, where the substitutions may have occurred. INTERMEDIATE documented in this encounter Plan of Treatment Upcoming Encounters Date Type Department Care Team (Late st Contact Info) Description 03/14/2024 11:45 AM EMT INTERMEDIATE Office Visit [facility] [address] Marvin Mckeon MD [facility] [address] [place], [place] [id number] 03/20/2024 11:30 AM EMT INTERMEDIATE Office Visit [facility] Family [facility] - [place] [address] [place] [address] Yasmin Valenzuela II, MD [address] [place], [place] [id number] documented as of this encounter Results * (ABNORMAL) COMPREHENSIVE METABOLIC PANEL (04/13/2021 10:23 AM EMT INTERMEDIATE) [facility] GLUCOSE 157(H) 70 - 99 MG/DL 04/13/2021 11:57 AM [facility] BUN 32(H) 7 - 18 MG/DL 04/13/2021 11:57 AM [facility] CREATININE S/P/B 1.84(H) 0.55 - 1.02 MG/DL 04/13/2021 11:[address] [facility] SODIUM S/P/B 133(L) 136 - 145 MMOL/L 04/13/2021 11:57 AM [facility] POTASSIUM S/P/B 4.5 3.5 - 5.1 MMOL/L 04/13/2021 11:57 AM [facility] CHLORIDE S/P/B 101 100 - 108 MMOL/L 04/13/2021 11:[address] [facility] CO2 25.6 21 - 32 MMOL/L 04/13/2021 11:57 AM [facility] CALCIUM S/P/B 9.2 8.5 - 10.1 MG/DL 04/13/2021 11:57 AM [facility] BILIRUBIN TOTAL S/P/B 0.5 0.2 - 1.2 MG/DL 04/13/2021 11:57 AM [facility] Comment: THIS ASSAY IS NOT RECOMMENDED FOR PATIENTS UNDERGOING TREATMENT WITH ELTROMBOPAG DUE TO THE POTENTIAL FOR FALSELY ELEVATED RESULTS. TOTAL PROTEIN S/P/B 8.9(H) 6.4 - 8.2 G/DL 04/13/2021 11:57 AM [facility] ALBUMIN S/P/B 3.5 3.4 - 5.0 G/DL 04/13/2021 11:57 AM [facility] AST 20 15 - 37 U/L 04/13/2021 11:57 AM [facility] ALT 28 14 - 55 U/L 04/13/2021 11:57 AM [facility] ALKALINE PHOSPHATASE S/P/B 133 50 - 136 U/L 04/13/2021 11:57 AM [facility] ANION GAP 6.4 5 - 15 MMOL/L 04/13/2021 11:57 AM [facility] BUN CREATININE RATIO 17.4 6 - 26 04/13/2021 11:57 AM [facility] A/G RATIO 0.6(L) 1.0 - 2.0 RATIO 04/13/2021 11:57 AM [facility] EGFR NON-AFR. AMER. 31(L) >90 ML/MIN/1.7 3 M2 04/13/2021 11:57 AM [facility] EGFR AFR. AMER. 36(L) >90 ML/MIN/1.7 3 M2 04/13/2021 11:57 AM [facility] Comment: NOTE: eGFR is not calculated for patients <18 years of age. This is an estimated GFR (CKD EPI) and should not be used for calculating drug doses. 04/13/2021 10:2 3 AM EMT INTERMEDIATE us Yasmin Valenzuela II, MD LABORATORY Final R esult [facility] [address] [place] [address], [place] [phone] documented in this encounter Visit Diagnoses Diagnosis Type 2 diabetes mellitus with diabetic neuropathic arthropathy, with long-term current use of insulin ([facility])- Primary Renal disorder Unspecified disorder of kidney and ureter Primary hypertension Unspecified essential hypertension Chronic bilateral low back pain without sciatica Vision decreased Unspecified visual loss documented in this encounter Additional Health Concerns Assessment Noted Time PHQ-9 Depression Total Score: 0 03/08/19 9:30 AM EMT INTERMEDIATE documented as of this encounter Care Teams Glassworker Relationship Specialty Start Date End Date Yasmin Valenzuela II, MD [address] [place] [address] PCP - General FAMILY PRACTICE 03/09/21 documented as of this encounter
--- OUTSIDE RECORDS SUMMARY | 2024-03-02 22:29 | XMS_ITS | Encounter Summary ---
Author Organization [facility] Address [address] [place] [address]. [place] [address] [place] [address] Care Team Providers Care Sheriff'S Sergeant Name Role Phone Colton SILVEIRA MD, Yasmin Rushing Primary Care Provider Reason for Visit * Reason Comments Follow Up constipation and typ e 2 diabetes Encounter Details Date Type Department Care Team (Late st Contact Info) Description 05/04/2021 9:00 AM CDT Office Visit [facility] Family Medicine - [place] 100 [place] [address] Yasmin Valenzuela II, MD 100 [place] [address] Follow Up (constipation and type 2 diabetes) Social History Tobacco Use Types Packs/Day [...] suspected to have Coronavirus/COVID-19? No / Unsure 05/04/2021 9:04 AM CDT documented as of this encounter Last Filed Vital Signs Vital Sign Reading Time Taken Comments Blood Pressure 149/85 05/04/2021 9:34 AM CDT Pulse 89 05/04/2021 9:09 AM CDT Temperature 36.1 ??C (97 ??F) 05/04/2021 9:09 AM CDT Respiratory Rate - - Oxygen Saturation 100% 05/04/2021 9:09 AM CDT Inhaled Oxygen Concentration - - Weight 88 kg (194 lb) 05/04/2021 9:09 AM CDT Height - - Body Mass Index 31.31 04/15/2021 4:29 PM RESTORATIVE CARE TECHNICIAN documented in this encounter Functional Status * RETIRED Are you deaf or do you have serious difficulty hearing Answer Date of Assessment Author Status No 04/15/2021 11:33 PM RESTORATIVE CARE TECHNICIAN Acti ve * RETIRED Are you blind or do you have serious difficulty seeing, even when wearing glasses? Answer Date of Assessment Author Status No 04/15/2021 11:33 PM RESTORATIVE CARE TECHNICIAN Acti ve * Do you have serious [...] Notes * Yasmin Valenzuela II, MD - 05/04/2021 9:00 AM CDT Images from the original note were not included. [facility] [address] [address] OFFICE FOLLOW UP NOTE Encounter Date: 05/04/2021 Chief Complaint: Follow Up (constipation and type 2 diabetes) History of Present Illness: 51-year-old female with diabetes, hypertension, decreased vision secondary to diabetes being seen today for follow-up on constipation for which we started Linzess last visit. She reports that the Linzess is working well and that she is taking it every other day. She reports that she is doing well except for hot flashes for which she does not desire treatment at this time but may consider treatment in the future. She will be scheduling her eye exam in the next 1 to 2 months. Review Of Systems: Positive ROS items as noted in HPI. All other Systems were reviewed and are negative. Patient Active Problem List Diagnosis ??? Hypercholesteremia ??? Hypertension ??? Type 2 diabetes mellitus (CMS/HCC) ??? Renal disorder ??? Chronic bilateral low back pain without sciatica ??? Callus of foot ??? Vision decreased ??? Renal stones Past Medical History: Diagnosis Date ??? Arthritis [...] mouth nightly. ) 90 tablet 3 ??? cyclobenzaprine 10 MG [...] blood sugar numbers.) 1 vial 1 ??? linaCLOtide 145 MCG capsule Take 1 capsule (145 mcg total) by mouth every morning before breakfast. Take on empty stomach at least 30 minutes prior to the first meal of the day. Swallow whole. Donot open capsule or chew. 30 capsule 5 ??? lisinopril 40 MG tablet Take 40 mg by mouth nightly. ??? Misc. Devices (PILL SPLITTER) Misc 1 [...] needed for Nausea. 20 tablet 0 ??? polyethylene glycol 17 GM/SCOOP powder Take 17 g by mouth daily. Dissolve powder in 240 mL water ??? RELION INSULIN SYRINGE 31G X 15/64 1 ML Mis USE 1 SYRINGE SUBCUTANEOUSLY TWICE DAILY (Patienttaking [...] Rash ??? Penicillins Rash Objective: Filed Vitals: 05/04/21 0909 05/04/21 0934 BP: (!) 168/99 (!) 149/85 Pulse: 89 Temp: 97 ??F (36.1 ??C) TempSrc: Oral SpO2: 100% Weight: 88 kg (194 lb) Nursing note reviewed. Physical Exam Vitals [...] orders placed or performed in visit on 05/04/21 A1C (BACK OFFICE) Result Value Ref Range HGB A1C 9.0 % Counseling The patient and patient's family was counseled regarding instructions for management, patient and family education and importance of compliance with treatment. Assessment: 1. Type 2 diabetes mellitus with diabetic neuropathic arthropathy, with long- term current use of insulin ([facility]) ALBUMIN URINE RANDOM SITagliptin 100 MG tablet A1C (BACK OFFICE) 2. Primary hypertension COMPREHENSIVE METABOLIC PANEL 3. Vision decreased 4. Other constipation Plan: Orders Placed This Encounter Medications ??? SITagliptin 100 MG tablet 1. Type 2 diabetes mellitus with diabetic neuropathic arthropathy, with long- term current use of insulin ([facility]) Hemoglobin A1c remains essentially unchanged at 9%. We will add sitagliptin 100 mg daily and patient will follow up with me in 1 month to review home blood sugars. We also discussed hot flashes and that either venlafaxine or estrogen would be the best treatments for her given her diabetes and high blood pressure we would like to avoid estrogen if possible. Patient desires to monitor to see if they improve. - ALBUMIN URINE RANDOM; Future - SITagliptin 100 MG tablet; Take 1 tablet (100 mg total) by mouth daily. Dispense: 90 tablet; Refill: 3 - A1C (BACK OFFICE) 2. Primary hypertension Patient's blood pressure is slightly higher than goal. We did have to stop hydrochlorothiazide secondary to acute kidney injury. We will continue lisinopril and amlodipine for now and will check metabolic panel prior to follow-up next month. If blood pressure still elevated at that time we may need to add Coreg as we would like to avoid the diuretics secondary to acute kidney injury history. - COMPREHENSIVE METABOLIC PANEL; Future 3. Vision decreased Patient will schedule with her financial service professional for ongoing diabetic retinopathy surveillance. 4. Other constipation Constipation is now improved and manageable with Linzess. Medications Discontinued During This Encounter Medication Reason ??? Senna 8.6 MG tablet Formulary change YASMIN VALENZUELA MD 05/04/2021 Portions of this note were dictated using [facility] speech recognition software. Occasional wrong wordor sound-alike substitutions may have occurred due to the inherent limitations of voice recognition software. Please read the chart carefully and recognize, using context, where the substitutions may have occurred. documented in this encounter Plan of Treatment Upcoming Encounters Date Type Department Care Team (Late st Contact Info) Description 03/14/2024 11:45 AM RESTORATIVE CARE TECHNICIAN Office Visit [facility] [phone] Marvin Mckeon MD [address] [place] [phone] 03/20/2024 11:30 AM RESTORATIVE CARE TECHNICIAN Office Visit [facility] Family Medicine - [address] [phone] Yasmin Valenzuela II, MD [address] [place] [phone] documented as of this encounter Procedures Procedure Name Priority Date/Time Associated Diagnosis Comments HEMOGLOBIN, GLYCOSYLATED Routine 05/04/2021 Type 2 diabetes mellitus with diabetic neuropathic arthropathy, with long-term current use of insulin ([facility]) documented in this encounter Results * (ABNORMAL) COMPREHENSIVE METABOLIC PANEL (05/10/2021 12:09 PM CDT) GLUCOSE 144(H) 70 - 99 MG/DL 05/10/2021 1:17 PM CDT [facility] BUN 18 7 - 18 MG/DL 05/10/2021 1:17 PM CDT [facility] CREATININE S/P/B 1.19(H) 0.55 - 1.02 MG/DL 05/10/2021 1:17 PM CDT [facility] SODIUM S/P/B 139 136 - 145 MMOL/L 05/10/2021 1:17 PM CDT [facility] POTASSIUM S/P/B 4.2 3.5 - 5.1 MMOL/L 05/10/2021 1:17 PM CDT [facility] CHLORIDE S/P/B 106 100 - 108 MMOL/L 05/10/2021 1:17 PM CDT [facility] CO2 30.1 21 - 32 MMOL/L 05/10/2021 1:17 PM CDT [facility] CALCIUM S/P/B 9.5 8.5 - 10.1 MG/DL 05/10/2021 1:17 PM CDT [facility] BILIRUBIN TOTAL S/P/B 0.5 0.2 - 1.2 MG/DL 05/10/2021 1:17 PM T [facility] Comment: THIS ASSAY IS NOT RECOMMENDED FOR PATIENTS UNDERGOING TREATMENT WITH ELTROMBOPAG DUE TO THE POTENTIAL FOR FALSELY ELEVATED RESULTS. TOTAL PROTEIN S/P/B 8.4(H) 6.4 - 8.2 G/DL 05/10/2021 1:17 PM CDT [facility] ALBUMIN S/P/B 3.7 3.4 - 5.0 G/DL 05/10/2021 1:17 PM CDT [facility] AST 17 15 - 37 U/L 05/10/2021 1:17 PM T [facility] ALT 26 14 - 55 U/L 05/10/2021 1:17 PM CDT [facility] ALKALINE PHOSPHATASE S/P/B 135 50 - 136 U/L 05/10/2021 1:17 PM T [facility] ANION GAP 2.9(L) 5 - 15 MMOL/L 05/10/2021 1:17 PM T [facility] BUN CREATININE RATIO 15.1 6 - 26 05/10/2021 1:17 PM T [facility] A/G RATIO 0.8(L) 1.0 - 2.0 RATIO 05/10/2021 1:17 PM CDT [facility] EGFR NON-AFR. AMER. 53(L) >90 ML/MIN/1.7 3 M2 05/10/2021 1:17 PM CDT [facility] EGFR AFR. AMER. 62(L) >90 ML/MIN/1.7 3 M2 05/10/2021 1:17 PM CDT [facility] Comment: NOTE: eGFR is not calculated for patients <18 years of age. This is an estimated GFR (CKD EPI) and should not be used for calculating drug doses. 05/10/2021 12:0 9 PM CDT us Yasmin Valenzuela II, MD LABORATORY Final R esult Performing Organization Address City/[facility]/ZIP Co de Phone Number [facility] [address] [place] [address], [place] [phone] * (ABNORMAL) ALBUMIN URINE RANDOM (05/10/2021 12:03 PM CDT) CREATININE (U) 149.0 28 - 217 MG/DL 05/10/2021 1:29 PM CDT [facility] MICROALBUMIN (U) 23.0(H) <2.0 mg/dL 05/10/2021 1:29 PM CDT [facility] ALBUMIN/CREAT RATIO 154.4(H) <30 MG/G 05/10/2021 1:29 PM CDT [facility] URINE SPECIMEN / Unknown 05/10/2021 12:03 PM CDT Yasmin Valenzuela II, MD URINE ORDERABLES Final Result Performing Organization Address City/[facility]/ZIP Co de Phone Number [facility] [address] [place] [address] [place] [address], [place] [phone] * A1C (BACK OFFICE) (05/04/2021) HGB A1C 9.0 % MG-[facility] 05/04/2021 Yasmin Valenzuela II, MD LABORATORY Final R esult MG-100 [facility] [address] [place] [address], [place] [phone] documented in this encounter Visit Diagnoses Diagnosis Type 2 diabetes mellitus with diabetic neuropathic arthropathy, with long-term current use of insulin ([facility])- Primary Primary hypertension Unspecified essential hypertension Vision decreased Unspecified visual loss Other constipation documented in this encounter Additional Health Concerns Assessment Noted Time PHQ-9 Depression Total Score: 0 03/08/19 22 9:30 AM RESTORATIVE CARE TECHNICIAN documented as of this encounter Care Teams Sheriff'S Sergeant Relationship Specialty Start Date End Date Yasmin Valenzuela II, MD [address] [place] [phone] PCP - General FAMILY PRACTICE 03/09/21 documented as of this encounter
--- OUTSIDE RECORDS SUMMARY | 2024-03-02 22:29 | XMS_ITS | Encounter Summary ---
Author Organization [facility] Address [address] [place] [address]. [place] [address] [place] [address] Care Team Providers Care Section Crews Activities Clerk Name Role Phone Colton SILVEIRA MD, Abiodun Rushing Primary Care Provider Reason for Visit * Reason Onset Date Comments Pre-visit Gap Closure 06/02/2021 Record Request 06/02/2021 Encounter Details Date Type Department Care Team (Late st Contact Info) Description 06/02/2021 Telephone [facility] Family Medicine - [place] 100 [place] [address] Abiodun Segura II, MD [address] [place] [address] Pre-visit Gap Closure; Record Request Social History Tobacco [...] suspected to have Coronavirus/COVID-19? No / Unsure 05/10/2021 11:43 AM CDT documented as of this encounter Functional Status * RETIRED Are you deaf or do you have serious difficulty hearing Answer Date of Assessment Author Status No 04/15/2021 11:33 PM BARROW WORKER HELPER Acti ve * RETIRED Are you blind or do you have serious difficulty seeing, even when wearing glasses? Answer Date of Assessment Author Status No 04/15/2021 11:33 PM BARROW WORKER HELPER Acti ve * Do you have serious [...] documented in this encounter Progress Notes * Nida Keating CMA - 06/02/2021 9:18 AM CDT I have faxed/called Dr. Adler for this patient's colonoscopy results. Recd response back, no patient records * Nida Keating CMA - 06/02/2021 9:12 AM CDT Contacted patient for pre-visit gap closure. I am calling this patient as a patient advocate for the [employer]. My direct extension is 2015. You can also reach me at: [phone] (ESTHER) OR [phone] (BRYANT) documented in this encounter Plan of Treatment Upcoming Encounters Date Type Department Care Team (Late st Contact Info) Description 03/14/2024 11:45 AM BARROW WORKER HELPER Office Visit [facility] [phone] Marvin Mckeon MD [facility] [address] [place], [place] [phone] 03/20/2024 11:30 AM BARROW WORKER HELPER Office Visit [facility] Family Medicine - [place] 100 [place] [phone] Abiodun Segura II, MD [address] [place], [place] [phone] documented as of this encounter Visit Diagnoses Not on filedocumented in this encounter Additional Health Concerns Assessment Noted Time PHQ-9 Depression Total Score: 0 03/08/19 9:30 AM BARROW WORKER HELPER documented as of this encounter Care Teams Section Crews Activities Clerk Relationship Specialty Start Date End Date Abiodun Segura II, MD [address] [place], [place] [phone] PCP - General FAMILY PRACTICE 03/09/21 documented as of this encounter
--- OUTSIDE RECORDS SUMMARY | 2024-03-02 22:29 | XMS_ITS | Encounter Summary ---
Author Organization [facility] Address [address] [place] [address]. [place] [address] [place] [address] Care Team Providers Care Traveling Nurse Name Role Phone Colton SILVEIRA MD, Abiodun Rushing Primary Care Provider Reason for Visit * Reason Onset Date Comments UTI 06/20/2021 Encounter Details Date Type Department Care Team (Late st Contact Info) Description 06/20/2021 Telephone [facility] Family Medicine - [place] 100 [place] [address] Abiodun Segura II, MD 100 [place] [address] UTI Social History Tobacco Use Types Packs/Day [...] suspected to have Coronavirus/COVID-19? No / Unsure 06/08/2021 9:13 AM CDT documented as of this encounter Functional Status * RETIRED Are you deaf or do you have serious difficulty hearing Answer Date of Assessment Author Status No 04/15/2021 11:33 PM CARDIAC CATH TECHNOLOGIST Acti ve * RETIRED Are you blind or do you have serious difficulty seeing, even when wearing glasses? Answer Date of Assessment Author Status No 04/15/2021 11:33 PM CARDIAC CATH TECHNOLOGIST Acti ve * Do you have [...] Notes * Abiodun Segura II, MD - 06/20/2021 5:37 PM CDT Patient called. Will treat with cipro. documented in this encounter Plan of Treatment Upcoming Encounters Date Type Department Care Team (Late st Contact Info) Description 03/14/2024 11:45 AM CARDIAC CATH TECHNOLOGIST Office Visit [facility] [phone] Marvin Mckeon MD [facility] [address] [place] [address] 03/20/2024 11:30 AM CARDIAC CATH TECHNOLOGIST Office Visit [facility] Family Medicine - 100 [place] [phone] Abiodun Segura II, MD 100 [place], [place] [phone] documented as of this encounter Visit Diagnoses Not on filedocumented in this encounter Additional Health Concerns Assessment Noted Time PHQ-9 Depression Total Score: 0 03/08/19 9:30 AM CARDIAC CATH TECHNOLOGIST documented as of this encounter Care Teams Traveling Nurse Relationship Specialty Start Date End Date Abiodun Segura II, MD 100 [place], [place] [phone] PCP - General FAMILY PRACTICE 03/09/21 documented as of this encounter
--- OUTSIDE RECORDS SUMMARY | 2024-03-02 22:29 | XMS_ITS | Encounter Summary ---
Author Organization [facility] Address [address] [place] [address]. [place], [place] [phone] [place] [address] Care Team Providers Care Environmental Health Safety Engineer Name Role Phone Colton SILVEIRA MD, Abiodun Rushing Primary Care Provider Encounter Details Date Type Department Care Team (Latest Contact Info) Description 03/21/2021 Travel Social History Tobacco Use Types Packs/Day [...] COVID-19? No / Unsure 03/21/2021 9:39 AM SPECIAL EDUCATION ADMINISTRATOR documented as of this encounter Functional Status [...] Author Status No 08/12/2019 3:00 AM CDT Shelby Martinez R N Active * Do you have difficulty dressing or bathing? Answer Date of Assessment Author Status Yes 08/12/2019 3:00 AM CDT Shelby Martinez R N Active * Because of a physical, mental, or emotional condition, do you have difficulty doing errands alone such as visiting a doctor's office or shopping? Answer Date of Assessment Author Status Yes 08/12/2019 3:00 AM CDT Shelby Martinez R N Active documented as of this encounter Mental Status * Because of a physical, mental, or emotional condition, do you have serious difficulty concentrating, remembering, or making decisions? Answer Entry Date Author Status No 08/12/2019 3:00 AM CDT Shelby Martinez R N Active documented in this encounter Plan of Treatment Upcoming Encounters Date Type Department Care Team (Late st Contact Info) Description 03/14/2024 11:45 AM SPECIAL EDUCATION ADMINISTRATOR Office Visit [facility] [phone] Marvin Mckeon MD [facility] [address] [place] [phone] 03/20/2024 11:30 AM SPECIAL EDUCATION ADMINISTRATOR Office Visit [facility] Family Medicine - [place] 100 [place] [phone] Abiodun Segura II, MD [address] [place] [phone] documented as of this encounter Visit Diagnoses Not on filedocumented in this encounter Additional Health Concerns Assessment Noted Time PHQ-9 Depression Total Score: 0 03/08/19 9:30 AM SPECIAL EDUCATION ADMINISTRATOR documented as of this encounter Care Teams Environmental Health Safety Engineer Relationship Specialty Start Date End Date Abiodun Segura II, MD [facility] [place] [address] PCP - General FAMILY PRACTICE 03/09/21 documented as of this encounter
--- OUTSIDE RECORDS SUMMARY | 2024-03-02 22:29 | XMS_ITS | Encounter Summary ---
Author Organization [facility] Address [address] [place] [address]. [place] [address] [place] [address] Care Team Providers Care Timber Spotter Name Role Phone Jarred Rod MD Primary Care Provider Unav ailable Reason for Referral * Consultation (Urgent) - Closed Specialty Diagnoses / Procedures Referred By Lyla chaney Referred To Contact UROLOGY Diagnoses Renal calcinosis Hydronephrosis with ureteral stricture, not elsewhere classified Yasmin Valenzuela II, MD [address] [place] [address] Phone: tel: fax: Pilo Salmon MD Referral ID Status Reason Start Date Expiration Date V isits Requested Visits Authorized [id number] Closed Specialty Services 02/23/2021 08/22/2021 6 6 Scheduling Instructions 50yo female with right sided hydronephrosis which appears to be worsening causing renal cortex thinning and now with pain likely from a stricture at the UPJ per previous studies. Please evaluate and treat. She is also developing bladder symptoms which clinically sound like interstitial cystitis. Thanks. CTOR HR COMMUNICATIONS * Imaging (Routine) - Closed Specialty Diagnoses / Procedures Referred By Lyla chaney Referred To Contact RADIOLOGY Diagnoses Hydronephrosis with ureteral stricture, not elsewhere classified Procedures US RETROPERITONEAL COMP Yasmin Valenzuela II, MD [address] [place] [address] Phone: tel: fax: Referral ID Status Reason Start Date Expiration Date Visits Re quested Visits Authorized [id number] Closed 02/23/2021 03/26/2022 1 1 CTOR HR COMMUNICATIONS Reason for Visit * Reason Comments Follow Up Back pain and c/o ur ianry pressure Encounter Details Date Type Department Care Team (Late st Contact Info) Description 02/23/2021 10:00 AM DIRECTOR HR COMMUNICATIONS Office Visit [facility] Family [facility] [address] [phone] Yasmin Valenzuela II, MD [address] [place] [address] Follow Up (Back pain and c/o urianry pressure) Social History Tobacco Use Types Packs/Day Years Used Date Smoking Tobacco: Never Smokeless Tobacco: Never Tobacco Cessation:Counseling Given: No Alcohol Use Standard Drinks/Week Comments No 0 (1 standard drink = 0.6 oz pur e alcohol) PHQ-2 Answer Date Recorded PHQ-2 Score - If the patient scores above 3, please move on to questions 3-9 0 10/08/2020 Comments No Sex and Gender Information Value [...] have Coronavirus / COVID-19? No / Unsure 02/23/2021 9:53 AM DIRECTOR HR COMMUNICATIONS documented as of this encounter Last Filed Vital Signs Vital Sign Reading Time Taken Comments Blood Pressure 128/75 02/23/2021 10:09 AM DIRECTOR HR COMMUNICATIONS Pulse 87 02/23/2021 10:09 AM DIRECTOR HR COMMUNICATIONS Temperature 36.5 ??C (97.7 ??F) 02/23/2021 10:[address] Respiratory Rate - - Oxygen Saturation - - Inhaled Oxygen Concentration - - Weight 89.6 kg (197 lb 9.6 oz) 02/23/2021 10:09 AM DIRECTOR HR COMMUNICATIONS Height - - Body Mass Index 31.89 12/14/2020 11:13 AM CDT documented in this encounter Functional [...] Author Status No 08/12/2019 3:00 AM CDT Totty, Shelby A, R N Active * Do you have difficulty dressing or bathing? Answer Date of Assessment Author Status Yes 08/12/2019 3:00 AM CDT Totty, Shelby A, R N Active * Because of a physical, mental, or emotional condition, do you have difficulty doing errands alone such as visiting a doctor's office or shopping? Answer Date of Assessment Author Status Yes 08/12/2019 3:00 AM CDT Totty, Shelby A, R N Active documented as of this encounter Mental Status * Because of a physical, mental, or emotional condition, do you have serious difficulty concentrating, remembering, or making decisions? Answer Entry Date Author Status No 08/12/2019 3:00 AM CDT Totty, Shelby A, R N Active documented in this encounter Progress Notes * Yasmin Valenzuela II, MD - 02/23/2021 10:00 AM CST Images from the original note were not included. [facility] FAMILY [facility] [address] [address] OFFICE FOLLOW UP NOTE Encounter Date: 02/23/2021 Chief Complaint: Follow Up (Back pain and c/o urianry pressure) History of Present Illness: 50-year-old female with history of diabetes, right-sided hydronephrosis, renal calcinosis, hypertension, and hypercholesterolemia here to follow-up after being treated for urinary tract infection. Patient reports that her right-sided flank pain is gradually worsened over the last several months andis now exacerbated even by position changes. Previously when she had the symptoms her right kidney had to be transcutaneously drained secondary to increased hydronephrotic pressure. Patient also reports slowly worsening urinary frequency with feeling of incomplete emptying. She reports that her UTIsymptoms have now resolved with treatment. Here for reevaluation and treatment recommendations. Patient did try physical therapy for back pain but that only made her symptoms worse. 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 Review Of Systems: Pt denies any cp/sob/n/v/f/c/cruz All other Systems were reviewed and are negative. Patient Active Problem List Diagnosis ??? Osteomyelitis (CMS/HCC) ??? Diabetic foot ulcer (CMS/HCC) ??? Hypercholesteremia ??? Hypertension ??? Nephrolithiasis ??? Type 2 diabetes mellitus (CMS/HCC) ??? Renal disorder ??? Chronic bilateral low back pain without sciatica ??? Callus of foot Past Medical History: Diagnosis Date ??? Arthritis [...] by mouth daily. 90 tablet 3 ??? ciprofloxacin 500 MG tablet Take 1 tablet (500 mg total) by mouth 2 (two) times daily for 7 days. 14 tablet 0 ??? HUMALOG MIX 75/25 (75-25) [...] by mouth daily. 30 tablet 1 ??? Misc. Devices (PILL SPLITTER) Misc 1 [...] by mouth daily. 45 tablet 3 ??? TRULICITY 1.5 MG/0.5ML Solution Pen-injector INJECT 1.5 MG SUBCUTANEOUSLY ONCE EVERY 7 DAYS 4 mL 1 No current facility-administered medications for this visit. Allergies Allergen Reactions ??? Amoxicillin Rash ??? Penicillins Rash Objective: Filed Vitals: 02/23/21 1009 BP: 128/75 Pulse: 87 Temp: 97.7 ??F (36.5 ??C) TempSrc: Temporal Weight: 89.6 kg (197 lb 9.6 oz) Nursing note reviewed. Physical Exam Vitals and nursing note reviewed. Constitutional: General: She is not in acute distress. Appearance: Normal appearance. She is not ill-appearing. HENT: Head: Normocephalic and atraumatic. Nose: Nose normal. Eyes: Extraocular Movements: Extraocular movements intact. Pupils: Pupils are equal, round, and reactive to light. Comments: Blind in right eye. Cardiovascular: Rate and Rhythm: Normal rate and regular rhythm. Heart sounds: Normal heart sounds. Pulmonary: Effort: Pulmonary effort is normal. Breath sounds: Normal breath sounds. Abdominal: General: Abdomen is flat. Bowel sounds are normal. Palpations: Abdomen is soft. Tenderness: There is right CVA tenderness. Comments: Mild Right CVAT Musculoskeletal: General: Normal range of motion. Cervical [...] or performed during the hospital encounter of 01/24/21 [facility] ART REST W ADRIANA LOW EXT Narrative ARTERIAL DOPPLER - ADRIANA BILATERAL LOWER EXTREMITY VASCULAR LAB Pat.Name: LENA YOUNGBLOOD Jemima.ID: [id number] .Date: 01/24/2021 Exam Time: 12:36:00 PM Study Type:MARINO VS Arterial Doppler Legs NOHEMY Age: 2 1970,50Y Sex: FEMALE Sonogrphr: Erica Rogers, RVT Pat. Stat.:Outpatient History / Clinical:Bilateral foot pain. PMH; Charcot left foot with L2-L3 amp, dm, hld, htn Procedures: Doppler waveforms, Digit PPG, Systolic Pressures w/ADRIANA ++++++++++++++++++++++++++++++++++++ SUMMARY: ++++++++++++++++++++++++++++++++++++ Joceline ADRIANA Criteria: >1.30 [...] waveform is triphasic, high amplitude; Popliteal biphasic, medium amplitude; Posterior Tibial biphasic, medium amplitude with ADRIANA 1.18 ; DP/Anterior Tibial triphasic, high amplitude with ADRIANA 1.19 . Digit flow by PPG is high amplitude with DBI 0.972 . Left leg: Common Femoral waveform is triphasic, high amplitude; Popliteal biphasic, medium amplitude; Posterior Tibial biphasic, low amplitude with ADRIANA 1.04 ; DP/Anterior Tibial biphasic, medium amplitude with ADRIANA 1.24 . Digit flow by PPG is low amplitude with DBI 0.694 . CONCLUSION: ADRIANA right > 1.0 with triphasic waveforms, with toe index 0.972 . ADRIANA left > 1.0 with triphasic waveforms, with toe index 0.694 . No significant peripheral arterial disease at rest. No evidence of tibial artery disease bilaterally. There is no evidence of small vessel disease or embolism in either foot. ++++++++++++++++++++++++++++++++++++ FINDINGS: ++++++++++++++++++++++++++++++++++++ ++++++++++++++++++++++++++++++++++++ MEASUREMENTS: ++++++++++++++++++++++++++++++++++++ PRESSURES Right Brachial Brach P 144 mmHg Right Ankle DP AnkleDP P 172 mmHg Right Ankle PT AnklePT P 170 mmHg Right Great Toe GreatToe P 140 mmHg Right ADRIANA PT ADRIANA PT 1.18 Right ADRIANA DP ADRIANA DP 1.19 Right TBI TBI 0.972 Left Brachial Brach P 140 mmHg Left Ankle DP AnkleDP P 178 mmHg Left Ankle PT AnklePT P 150 mmHg Left Great Toe GreatToe P 100 mmHg Left ADRIANA PT ADRIANA PT 1.04 Left ADRIANA DP ADRIANA DP 1.24 Left TBI TBI 0.694 Signed 01/28/2021 09:47 AM Joel Santiago M.D. Counseling The patient and patient's family was counseled regarding instructions for management, patient and family education and importance of compliance with treatment. Assessment: 1. Type 2 diabetes mellitus with diabetic neuropathic arthropathy, with long- term current use of insulin (CMS/[facility]) HEMOGLOBIN, GLYCOSYLATED 2. Chronic bilateral low back pain without sciatica 3. Hydronephrosis with ureteral stricture, not elsewhere classified URINALYSIS US RETROPERITONEAL COMP Ambulatory referral to Urology ([facility]) 4. Renal calcinosis URINALYSIS Ambulatory referral to Urology ([facility]) 5. Hypercholesteremia LIPID PANEL 6. Primary hypertension CBC W/DIFF AUTOMATED COMPREHENSIVE METABOLIC PANEL Plan: No orders of the defined types were placed in this encounter. 1. Type 2 diabetes mellitus with diabetic neuropathic arthropathy, with long- term current use of insulin (CMS/HCC) Patient has not followed up with endocrinology recently. We will check hemoglobin A1c to assess long-term glucose control. Patient to follow-up with me in 1 week for a 40-minute medical management appointment as we will likely have to make multiple adjustments. - HEMOGLOBIN, GLYCOSYLATED; Future 2. Chronic bilateral low back pain without sciatica Patient's back pain is mostly right-sided and likely associated with her right- sided hydronephrosis. 3. Hydronephrosis with ureteral stricture, not elsewhere classified We will repeat renal ultrasound to assess progress renal cortical thinning and hydronephrosis. We will check urinalysis for sediment and we will consult urology for recommendations since patient likely has a stricture at the right UPJ exacerbating her situation. - URINALYSIS; Future - US RETROPERITONEAL COMP; Future - Ambulatory referral to Urology ( [place]) 4. Renal calcinosis We will check urinalysis for sediment or blood. - URINALYSIS; Future - Ambulatory referral to Urology ( [place]) 5. Hypercholesteremia We will check lipids to ensure that LDL is below treatment goal. - LIPID PANEL; Future 6. Primary hypertension Patient's blood pressure is at goal today. We will check blood count and metabolic panel to rule out worsening kidney function. - CBC W/DIFF AUTOMATED; Future - COMPREHENSIVE METABOLIC PANEL; Future There are no discontinued medications. YASMIN VALENZUELA MD 02/23/2021 CTOR HR COMMUNICATIONS documented in this encounter Plan of Treatment Upcoming Encounters Date Type Department Care Team (Late st Contact Info) Description 03/14/2024 11:45 AM DIRECTOR HR COMMUNICATIONS Office Visit [facility] [phone] Marvin Mckeon MD [facility] [address] [place] [address] 03/20/2024 11:30 AM DIRECTOR HR COMMUNICATIONS Office Visit [facility] - [place] [address] [place] [phone] Yasmin Valenzuela II, MD [address] [place], [place] [address] Scheduled Referrals Name Type Priority Associated Diagnoses Orde r Schedule Ambulatory referral to Urology ( [place]) Referral Routine Renal calcinosis Hydronephrosis with ureteral stricture, not elsewhere classified Ordered: 02/23/2021 documented as of this encounter Results * (ABNORMAL) URINALYSIS (05/10/2021 12:03 PM CDT) SPECIMEN TYPE URINE CLEAN CATCH 05/10/2021 11:57 AM CDT [facility] COLOR (U) LIGHT YELLOW 05/10/2021 1:13 PM CDT [facility] TRANSPARENCY CLEAR 05/10/2021 1:13 PM CDT [facility] SPECIFIC GRAVITY (U) 1.012 1.001 - 1.030 05/10/2021 1:13 PM CDT [facility] U PH 5.5 5.0 - 9.0 05/10/2021 1:13 PM CDT [facility] LEUKOCYTES (U) NEGATIVE NEGATIVE 05/10/2021 1:13 PM CDT [facility] NITRITES NEGATIVE NEGATIVE 05/10/2021 1:13 PM CDT [facility] PROTEIN (U) 30(H) <30 MG/DL 05/10/2021 1:13 PM CDT [facility] URINE GLUCOSE NORMAL NORMAL MG/DL 05/10/2021 1:13 PM CDT [facility] KETONES MG/DL (U) NEGATIVE NEGATIVE MG/DL 05/10/2021 1:13 PM CDT [facility] UROBILINOGEN NORMAL NORMAL MG/DL 05/10/2021 1:13 PM CDT [facility] BILIRUBIN (U) NEGATIVE NEGATIVE MG/DL 05/10/2021 1:13 PM CDT [facility] BLOOD (U) NEGATIVE NEGATIVE 05/10/2021 1:13 PM CDT [facility] MUCUS RARE /LPF 05/10/2021 1:13 PM CDT [facility] HYALINE CASTS RARE /LPF 05/10/2021 1:13 PM CDT [facility] WBC/HPF 1 <6 /HPF 05/10/2021 1:13 PM CDT [facility] RBC/HPF <1 <6 /HPF 05/10/2021 1:13 PM CDT [facility] SQUAMOUS EPITHELIALS RARE /HPF 05/10/2021 1:13 PM CDT [facility] URINE SPECIMEN OBTAINED BY CLEAN CATCH PROCEDURE / Unknown 05/10/2021 12:03 PM CDT us Yasmin Valenzuela II, MD URINE ORDERABLES Final Result [facility] [address] [place] [address], [place] [phone] * US RETROPERITONEAL COMP (03/04/2021 11:08 AM DIRECTOR HR COMMUNICATIONS) Anatomical Region Laterality Modality Abdomen Ultrasound 03/04/2021 12:1 3 PM DIRECTOR HR COMMUNICATIONS Impressions 03/04/2021 3:19 PM DIRECTOR HR COMMUNICATIONS IMPRESSION: 1. Chronic dilation of the right renal calyces. Only minimal right renal pelvis distention. 2. No left hydronephrosis. No appreciable shadowing calcification although probable 3 mm nonobstructing calcification in the mid to upper pole left kidney on 2020 CT study. 3. No appreciable acute urinary bladder abnormality. Ordered By: YASMIN VALENZUELA II Interpreted By: Angelito Tidwell, 03/04/2021 12:13 PM Narrative 03/04/2021 3:19 PM DIRECTOR HR COMMUNICATIONS IMAGING STUDIES: ??US RETROPERITONEAL COMP ?DATE: ??03/04/2021 10:27 AM HISTORY: ??50yo female with right sided renal cortex thinning and hydronephrosis. ??Please evaluate for worsening. ??Thanks. ?50-year-old female with right hydronephrosis and renal cortical thinning. Right flank pain for 6 months and becoming more constant. History of urinary tract infections. Reported painful urination and inability to completely empty the urinary bladder. COMPARISON: ??CT abdomen and pelvis with contrast 11/18/2020. DISCUSSION: Right kidney 11.1 x 5.6 x 5.4 cm. ?? Dilated right renal calyces which was also the case on 11/18/2020 CT study. Only minimal right renal pelvic distention. On prior CT study, contrast within [...] Incidental note made of multiple splenic granulomas. Procedure Note Angelito Tidwell MD - 03/04/2021 IMAGING STUDIES: US RETROPERITONEAL COMPDATE: 03/04/2021 10:27 AM HISTORY: 50yo female with right sided renal cortex thinning andhydronephrosis. Please evaluate for worsening. Thanks. [id number]-[id number] with right hydronephrosis and renal cortical thinning. Right flankpain for 6 months and becoming more constant. History of urinary tractinfections. Reported painful urination and inability to completely emptythe urinary bladder. COMPARISON: CT abdomen and pelvis with contrast 11/18/2020. DISCUSSION: Right kidney 11.1 x 5.6 x 5.4 cm. Dilated right renal calyces which was also the case on 11/18/2020 CT study.Only minimal right renal pelvic distention. On prior CT study, contrastwithin multiple renal calyces which limits evaluation for renalcalcification. Left kidney 10.8 x 5.3 x 5.1 cm. No hydronephrosis or appreciable shadowing renal calcification. Probable 3 mm nonobstructing calcification in the mid to upper pole leftkidney on 11/18/2020 CT study (axial image 55, coronal image 52, andsagittal image 32). Contrast in multiple left renal calyces limitedevaluation for additional calcifications at that time. Normal color Doppler signal within both kidneys. Mild to moderately distended urinary bladder. No appreciable debris withinthe urinary bladder. No apparent focal urinary bladder wall thickening. Oncolor Doppler imaging of the urinary bladder, bilateral ureteral jetsvisualized consistent with patent ureters. Incidental note made of multiple splenic granulomas. IMPRESSION: 1. Chronic dilation of the right renal calyces. Only minimal right renalpelvis distention. 2. No left hydronephrosis. No appreciable shadowing calcification althoughprobable 3 mm nonobstructing calcification in the mid to upper pole leftkidney on 2020 CT study. 3. No appreciable acute urinary bladder abnormality. Ordered By: YASMIN VALENZUELA II Interpreted By: Angelito Tidwell, 03/04/2021 12:13 PM us Yasmin Valenzuela II, MD ULTRASOUND Final R esult * (ABNORMAL) LIPID PANEL (02/23/2021 11:27 AM DIRECTOR HR COMMUNICATIONS) CHOLESTEROL 174 <200 MG/DL 02/23/2021 12:52 PM DIRECTOR HR COMMUNICATIONS [facility] TRIGLYCERIDES 269(H) <150 MG/DL 02/23/2021 12:52 PM [facility] HDL 41 >40.0 MG/DL 02/23/2021 12:52 PM [facility] LDL (CALCULATED) 79 <100 MG/DL 02/23/2021 12:52 PM [facility] NON HDL CHOLESTEROL 133(H) <130 MG/DL 02/23/2021 12:52 PM [facility] CHOL/HDL RATIO 4.2 0.0 - 4.5 02/23/2021 12:52 PM [facility] VLDL CALCULATION 54 5 - 55 MG/DL 02/23/2021 12:52 PM [facility] LIPID INTERPRETATION 02/23/2021 12:52 PM [facility] Comment: NIH CONCENSUS REPORT [...] ?HDL ?<40 ?--- ?LDL ? >=160 ?>=130 02/23/2021 11:2 7 AM DIRECTOR HR COMMUNICATIONS Yasmin Valenzuela II, MD LABORATORY Final R charley [facility] [address] [place] [address], * (ABNORMAL) COMPREHENSIVE METABOLIC PANEL (02/23/2021 11:27 AM DIRECTOR HR COMMUNICATIONS) GLUCOSE 186(H) 70 - 99 MG/DL 02/23/2021 12:52 PM DIRECTOR HR COMMUNICATIONS [facility] BUN 27(H) 7 - 18 MG/DL 02/23/2021 12:52 PM DIRECTOR HR COMMUNICATIONS [facility] CREATININE S/P/B 1.38(H) 0.55 - 1.02 MG/DL 02/23/2021 12:52 PM DIRECTOR HR COMMUNICATIONS [facility] SODIUM S/P/B 136 136 - 145 MMOL/L 02/23/2021 12:52 PM DIRECTOR HR COMMUNICATIONS [facility] POTASSIUM S/P/B 4.5 3.5 - 5.1 MMOL/L 02/23/2021 12:52 PM DIRECTOR HR COMMUNICATIONS [facility] CHLORIDE S/P/B 104 100 - 108 MMOL/L 02/23/2021 12:52 PM DIRECTOR HR COMMUNICATIONS [facility] CO2 25.1 21 - 32 MMOL/L 02/23/2021 12:52 PM DIRECTOR HR COMMUNICATIONS [facility] CALCIUM S/P/B 9.4 8.5 - 10.1 MG/DL 02/23/2021 12:52 PM DIRECTOR HR COMMUNICATIONS [facility] BILIRUBIN TOTAL S/P/B 0.3 0.2 - 1.2 MG/DL 02/23/2021 12:52 PM DIRECTOR HR COMMUNICATIONS [facility] Comment: THIS ASSAY IS NOT RECOMMENDED FOR PATIENTS UNDERGOING TREATMENT WITH ELTROMBOPAG DUE TO THE POTENTIAL FOR FALSELY ELEVATED RESULTS. TOTAL PROTEIN S/P/B 9.1(H) 6.4 - 8.2 G/DL 02/23/2021 12:52 PM [facility] ALBUMIN S/P/B 3.6 3.4 - 5.0 G/DL 02/23/2021 12:52 PM [facility] AST 21 15 - 37 U/L 02/23/2021 12:52 PM [facility] ALT 27 14 - 55 U/L 02/23/2021 12:52 PM [facility] ALKALINE PHOSPHATASE S/P/B 145(H) 50 - 136 U/L 02/23/2021 12:52 PM [facility] ANION GAP 6.9 5 - 15 MMOL/L 02/23/2021 12:52 PM [facility] BUN CREATININE RATIO 19.6 6 - 26 02/23/2021 12:52 PM [facility] A/G RATIO 0.7(L) 1.0 - 2.0 RATIO 02/23/2021 12:52 PM [facility] EGFR NON-AFR. AMER. 45(L) >90 ML/MIN/1.7 3 M2 02/23/2021 12:52 PM [facility] EGFR AFR. AMER. 52(L) >90 ML/MIN/1.7 3 M2 02/23/2021 12:52 PM [facility] Comment: NOTE: eGFR is not calculated for patients <18 years of age. This is an estimated GFR (CKD EPI) and should not be used for calculating drug doses. 02/23/2021 11:2 7 AM DIRECTOR HR COMMUNICATIONS us Yasmin Valenzuela II, MD LABORATORY Final R esult [facility] [address] [place] [address], [place] [phone] * CBC W/DIFF AUTOMATED (02/23/2021 11:27 AM DIRECTOR HR COMMUNICATIONS) [facility] WBC 9.7 4.5 - 11.0 x10'3/uL 02/23/2021 12:06 PM [facility] RBC 4.21 4.20 - 5.40 x10'6/uL 02/23/2021 12:06 PM [facility] HGB 12.8 12.0 - 16.0 G/DL 02/23/2021 12:06 PM [facility] HCT 39.7 38.0 - 48.0 % 02/23/2021 12:06 PM [facility] MCV 94.3 81.0 - 99.0 FL 02/23/2021 12:06 PM [facility] MCH 30.4 27.0 - 31.0 PG 02/23/2021 12:06 PM [facility] MCHC 32.2 32.0 - 36.0 G/DL 02/23/2021 12:06 PM [facility] RDW 13.0 11.5 - 14.5 % 02/23/2021 12:06 PM [facility] PLT 270 130 - 400 x10'3/uL 02/23/2021 12:06 PM [facility] MPV 11.1 9.3 - 12.2 FL 02/23/2021 12:06 PM [facility] DIFFERENTIAL TYPE AUTOMATED DIFFERENTIAL 02/23/2021 12:06 PM [facility] NEUTROPHILS % 59.8 % 02/23/2021 12:06 PM [facility] LYMPHOCYTES % 34.2 % 02/23/2021 12:06 PM [facility] MONOCYTES % 4.3 % 02/23/2021 12:06 PM [facility] EOSINOPHILS 0.8 % 02/23/2021 12:06 PM [facility] BASOPHILS 0.6 % 02/23/2021 12:06 PM [facility] IMMATURE GRANS % 0.3 % 02/23/19 12:06 PM [facility] ABS. NEUTROPHILS TOTAL 5.77 1.80 - 7.70 x10'3/uL 02/23/2021 12:06 PM [facility] ABS. LYMPHOCYTES 3.30 1.00 - 4.80 x10'3/uL 02/23/2021 12:06 PM [facility] ABS. MONOCYTES 0.42 0.24 - 0.86 x10'3/uL 02/23/2021 12:06 PM [facility] ABS. EOSINOPHILS 0.08 0.04 - 0.36 x10'3/uL 02/23/2021 12:06 PM [facility] ABS. BASOPHILS 0.06 0.01 - 0.08 x10'3/uL 02/23/2021 12:06 PM [facility] ABS. IMMATURE GRANULOCYTES 0.03 0.00 - 0.49 x10'3/uL 02/23/2021 12:06 PM [facility] 02/23/2021 11:2 7 AM DIRECTOR HR COMMUNICATIONS us Yasmin Valenzuela II, MD LABORATORY Final R esult [facility] [address] [place] [address], [place] [phone] * (ABNORMAL) HEMOGLOBIN, GLYCOSYLATED (02/23/2021 11:27 AM DIRECTOR HR COMMUNICATIONS) HGB A1C 8.9(H) <5.7 % 02/23/2021 1:15 PM DIRECTOR HR COMMUNICATIONS [facility] Comment: ADA GUIDELINES 2009 5.7 TO 6.4% INCREASED RISK OF DIABETES > OR = 6.5% CONSISTENT WITH DIABETES ESTIMATED AVG GLUCOSE 209 mg/dL 02/23/2021 1:15 PM DIRECTOR HR COMMUNICATIONS [facility] 02/23/2021 11:2 7 AM DIRECTOR HR COMMUNICATIONS Yasmin Valenzuela II, MD LABORATORY Final R esult [facility] [address] [place] [address], documented in this encounter Visit Diagnoses Diagnosis Type 2 diabetes mellitus with diabetic neuropathic arthropathy, with long-term current use of insulin ([facility])- Primary Chronic bilateral low back pain without sciatica Hydronephrosis with ureteral stricture, not elsewhere classified 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 Hypercholesteremia Pure hypercholesterolemia Primary hypertension Unspecified essential hypertension Hydronephrosis with ureteral stricture, not elsewhere classified documented in this encounter Additional Health Concerns Assessment Noted Time PHQ-9 Depression Total Score: 0 10/09/19 21 10:02 AM CDT documented as of this encounter Care Teams Timber Spotter Relationship Specialty Start Date End Date Jarred Rod MD PCP - General FAMILY PRACTICE 01/17/21 03/08/21 documented as of this encounter
--- OUTSIDE RECORDS SUMMARY | 2024-03-02 22:29 | XMS_ITS | Encounter Summary ---
Author Organization [facility] Address [address] [place] [address]. [place], [place] [id number] [place] [address] Care Team Providers Care Banquet Food Server Name Role Phone Jarred Rod MD Primary Care Provider Unav ailable Encounter Details Date Type Department Care Team (Latest Contact Info) Description 03/08/2021 Travel Social History Tobacco Use Types Packs/Day [...] have Coronavirus / COVID-19? No / Unsure 03/08/2021 9:11 AM WATER USE INSPECTOR documented as of this encounter Functional [...] Author Status No 08/12/2019 3:00 AM CDT TotShelby rodriguez R N Active * Do you have difficulty dressing or bathing? Answer Date of Assessment Author Status Yes 08/12/2019 3:00 AM CDT TottyJacintaa Miguelina, R N Active * Because of a physical, mental, or emotional condition, do you have difficulty doing errands alone such as visiting a doctor's office or shopping? Answer Date of Assessment Author Status Yes 08/12/2019 3:00 AM CDT Totty Shelby A, R N Active documented as of this encounter Mental Status * Because of a physical, mental, or emotional condition, do you have serious difficulty concentrating, remembering, or making decisions? Answer Entry Date Author Status No 08/12/2019 3:00 AM CDT TotShelby rodriguez, R N Active documented in this encounter Plan of Treatment Upcoming Encounters Date Type Department Care Team (Late st Contact Info) Description 03/14/2024 11:45 AM WATER USE INSPECTOR Office Visit [facility] [phone] Marvin Mckeon MD [facility] [address] [place] [address] 03/20/2024 11:30 AM WATER USE INSPECTOR Office Visit [facility] Family Medicine - [place] 100 [place] [phone] Abiodun Segura II, MD 100 [place] [address] documented as of this encounter Visit Diagnoses Not on filedocumented in this encounter Additional Health Concerns Assessment Noted Time PHQ-9 Depression Total Score: 0 03/08/19 9:30 AM WATER USE INSPECTOR documented as of this encounter Care Teams Banquet Food Server Relationship Specialty Start Date End Date Jarred Rod MD PCP - General FAMILY PRACTICE 01/17/21 03/08/21 documented as of this encounter
--- OUTSIDE RECORDS SUMMARY | 2024-03-02 22:29 | XMS_ITS | Encounter Summary ---
Author Organization [facility] Address [address] [place] [address]. [place], [place] [address] [place] [address] Care Team Providers Care Manager Port Name Role Phone Jarred Rod MD Primary Care Provider Unav ailable Encounter Details Date Type Department Care Team (Latest Contact Info) Description 01/17/2021 Travel Social History Tobacco Use Types Packs/Day [...] have Coronavirus / COVID-19? No / Unsure 01/17/2021 11:26 AM GUEST RELATIONS EXECUTIVE documented as of this encounter Functional Status [...] Author Status Yes 08/12/2019 3:00 AM CDT TotShelby rodriguez R N Active * Because of a physical, mental, or emotional condition, do you have difficulty doing errands alone such as visiting a doctor's office or shopping? Answer Date of Assessment Author Status Yes 08/12/2019 3:00 AM CDT TottyJacintaa Miguelina R N Active documented as of this [...] st Contact Info) Description 03/14/2024 11:45 AM GUEST RELATIONS EXECUTIVE Office Visit [facility] [phone] Marvin Mckeon MD [facility] [address] [place] [address] 03/20/2024 11:30 AM GUEST RELATIONS EXECUTIVE Office Visit [facility] Family Medicine - [place] 100 [place] [phone] Abiodun Segura II, MD 100 [place] [address] documented as of this encounter Visit Diagnoses Not on filedocumented in this encounter Additional Health Concerns Assessment Noted Time PHQ-9 Depression Total Score: 0 10/09/19 21 10:02 AM CDT documented as of this encounter Care Teams Manager Port Relationship Specialty Start Date End Date Jarred Rod MD PCP - General FAMILY PRACTICE 01/17/21 03/08/21 documented as of this encounter
--- OUTSIDE RECORDS SUMMARY | 2024-03-02 22:29 | XMS_ITS | Encounter Summary ---
Author Organization [facility] Address [address] [place] [address]. [place], [place] [id number] [place] [address] Care Team Providers Care Coal Deliverer Name Role Phone Colton SILVEIRA MD, Abiodun Rushing Primary Care Provider Encounter Details Date Type Department Care Team (Latest Contact Info) Description 05/04/2021 Travel Social History Tobacco Use Types Packs/Day [...] Assessment Author Status No 04/15/2021 11:33 PM MOLECULAR GENETICIST Acti ve * RETIRED Are you blind or do you have serious difficulty seeing, even when wearing glasses? Answer Date of Assessment Author Status No 04/15/2021 11:33 PM MOLECULAR GENETICIST Acti ve * Do you have serious [...] st Contact Info) Description 03/14/2024 11:45 AM MOLECULAR GENETICIST Office Visit [facility] [phone] Marvin Mckeon MD [facility] [address] [place], [place] [phone] 03/20/2024 11:30 AM MOLECULAR GENETICIST Office Visit [facility] Family Medicine - [place] 100 [place] [phone] Abiodun Segura II, MD [address] [place] [phone] documented as of this encounter Visit Diagnoses Not on filedocumented in this encounter Additional Health Concerns Assessment Noted Time PHQ-9 Depression Total Score: 0 03/08/19 9:30 AM MOLECULAR GENETICIST documented as of this encounter Care Teams Coal Deliverer Relationship Specialty Start Date End Date Abiodun Segura II, MD 100 [place] [address] PCP - General FAMILY PRACTICE 03/09/21 documented as of this encounter
--- OUTSIDE RECORDS SUMMARY | 2024-03-02 22:29 | XMS_ITS | Encounter Summary ---
Author Organization [facility] Address [address] [place] [address]. [place], [place] [address] [place] [address] Care Team Providers Care Plant Safety Leader Name Role Phone Colton SILVEIRA MD, Abiodun Rushing Primary Care Provider Encounter Details Date Type Department Care Team (Latest Contact Info) Description 06/21/2021 Travel Social History Tobacco Use Types Packs/Day [...] Assessment Author Status No 04/15/2021 11:33 PM DEPUTY SHERIFF GENERALIST/BAILIFF Acti ve * RETIRED Are you blind or do you have serious difficulty seeing, even when wearing glasses? Answer Date of Assessment Author Status No 04/15/2021 11:33 PM DEPUTY SHERIFF GENERALIST/BAILIFF Acti ve * Do you have serious [...] st Contact Info) Description 03/14/2024 11:45 AM DEPUTY SHERIFF GENERALIST/BAILIFF Office Visit [facility] [phone] [facility] [address] [place], [place] [phone] 03/20/2024 11:30 AM DEPUTY SHERIFF GENERALIST/BAILIFF Office Visit [facility] Family Medicine - [place] 100 [place] [phone] Abiodun Segura II, MD [address] [place] [phone] documented as of this encounter Visit Diagnoses Not on filedocumented in this encounter Additional Health Concerns Assessment Noted Time PHQ-9 Depression Total Score: 0 03/08/19 9:30 AM DEPUTY SHERIFF GENERALIST/BAILIFF documented as of this encounter Care Teams Plant Safety Leader Relationship Specialty Start Date End Date Abiodun Segura II, MD 100 [place] [address] PCP - General FAMILY PRACTICE 03/09/21 documented as of this encounter
--- OUTSIDE RECORDS SUMMARY | 2024-03-02 22:29 | XMS_ITS | Encounter Summary ---
Author Organization [facility] Address [address] [place] [address]. [place], [place] [address] [place] [address] Care Team Providers Care Electric Engine Mechanic Name Role Phone Jarred Rod MD Primary Care Provider Unav ailable Encounter Details Date Type Department Care Team (Latest Contact Info) Description 02/23/2021 Travel Social History Tobacco Use Types Packs/Day [...] COVID-19? No / Unsure 02/23/2021 9:53 AM WORM RAISER documented as of this encounter Functional Status [...] st Contact Info) Description 03/14/2024 11:45 AM WORM RAISER Office Visit [facility] [phone] Marvin Mckeon MD Three [facility] [address] [place] [address] 03/20/2024 11:30 AM WORM RAISER Office Visit [facility] Family Medicine - [place] 100 [place] [phone] Abiodun Segura II, MD 100 [place] [address] documented as of this encounter Visit Diagnoses Not on filedocumented in this encounter Additional Health Concerns Assessment Noted Time PHQ-9 Depression Total Score: 0 10/09/19 21 10:02 AM CDT documented as of this encounter Care Teams Electric Engine Mechanic Relationship Specialty Start Date End Date Jarred Rod MD PCP - General FAMILY PRACTICE 01/17/21 03/08/21 documented as of this encounter
--- OUTSIDE RECORDS SUMMARY | 2024-03-02 22:29 | XMS_ITS | Encounter Summary ---
Author Organization [facility] Address [address] [place] [address]. [place] [address] [place] [address] Care Team Providers Care Entry Level Marketing Assistant Name Role Phone Jarred Rod MD Primary Care Provider Unav ailable Reason for Visit * Reason Comments Kidney Problem rt side....new pt * Consultation (Urgent) - Closed Specialty Diagnoses / Procedures Referred By Contac t Referred To Contact UROLOGY Diagnoses Renal calcinosis Hydronephrosis with ureteral stricture, not elsewhere classified Yasmin Valenzuela II, MD 100 [place] [address] Phone: tel: fax: Thanh Veloz MD Referral ID Status Reason Start Date Expiration Date V isits Requested Visits Authorized [id number] Closed Specialty Services 02/23/2021 08/22/2021 6 6 Encounter Details Date Type Department Care Team (Latest Contact Info) Description 03/08/2021 10:40 AM POT FIREMAN Office Visit [facility] Multispecialty [facility] - [facility] [address] [facility], [address] [place] [address] Thanh Veloz MD Kidney Problem (rt side....new pt) Social History Tobacco Use Types Packs/Day Years [...] COVID-19? No / Unsure 03/21/2021 9:39 AM POT FIREMAN documented as of this encounter Last Filed Vital Signs Vital Sign Reading Time Taken Comments Blood Pressure 120/70 03/08/2021 9:30 AM POT FIREMAN Pulse 88 03/08/2021 9:30 AM POT FIREMAN Temperature 36.6 ??C (97.9 ??F) 03/08/2021 9:30 AM CS T Respiratory Rate 18 03/08/2021 9:30 AM POT FIREMAN Oxygen Saturation 96% 03/08/2021 9:30 AM POT FIREMAN Inhaled Oxygen Concentration - - Weight 88 kg (194 lb) 03/08/2021 9:30 AM POT FIREMAN Height 167.6 cm (5' 6 ) 03/08/2021 9:30 AM POT FIREMAN Body Mass Index 31.31 03/08/2021 9:30 AM POT FIREMAN documented in this encounter Functional Status * [...] documented in this encounter Progress Notes * Thanh Veloz MD - 03/08/2021 10:40 AM CST UROLOGY NEW PATIENT CONSULTATION NOTE Patient name: Lena Mcneal PCP: YASMIN VALENZUELA MD Date of Visit: 03/08/2021 Reason for consult: I was requested to see Lena Mcneal by Yasmin Valenzuela II, MD for a diagnosis of right flank pain HPI: Lena Mcneal is a 50-year-old female who presents for evaluation of above - complicated urology hx - 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 Lucero performed robotic assisted right dismembered pyeloplasty on 04/2012. At that time, nephrology was left in instead of stent given she had tremendous pain with ureteral stent. Of note, lasix renal scan doesn't show obstruction prior to pyeloplasty - Her nephrostomy was removed after 2 weeks (antegrade nephrostogram shows mod hydro and moderate UPJ stenosis at that time) - She had repeat lasix renal scan on 07/01 with T 1/2 of 10 minutes - She then saw [facility] in 2017 with repeat lasix renal scan which shows non obstruction and kidney function of 49% on right. Which is essentially the same compared to 4 years ago - She then saw Dr. Aydin Hair who performed Robotic assisted Sacrocolpopexy thinking her prolapse might be causing her abdominal pain but it didn't get better - She had multiple CT scan which shows mildly dilated system on right kidney but definitvely not worsening in appearance - She is still having intermittent sharp pain that drop her on the floor. Pain with nausea and vomiting. - she came for another opinion Allergies Allergen Reactions ??? Amoxicillin Rash ??? Penicillins Rash Outpatient Medications Marked as Taking for the 03/08/21 encounter (Office Visit) with Thanh Veloz MD Medication Sig Dispense Refill ??? amLODIPine 10 MG tablet Take 1 tablet (10 mg total) by mouth daily. 90 tablet 3 ??? HUMALOG MIX 75/25 (75-25) 100 [...] Mis USE 1 SYRINGE SUBCUTANEOUSLY TWICE DAILY 100 each5 ??? simvastatin 40 MG tablet Take 40 mg by mouth nightly at bedtime. ??? spironolactone 25 MG tablet Take 0.5 tablets (12.5 mg total) by mouth daily. 45 tablet 3 ??? [DISCONTINUED] TRULICITY 1.5 MG/0.5ML Solution Pen-injector INJECT 1.5 MG SUBCUTANEOUSLY ONCE EVERY 7 DAYS 4 mL 1 Past Medical History: Diagnosis Date ??? Arthritis [...] file Intimate Partner Violence: Not on file Review of systems: Constitutional: Negative for chills and fever. HENT: Negative for ear discharge, ear pain and nosebleeds. Eyes: Negative for pain and discharge. Respiratory: Negative for hemoptysis, sputum production. Cardiovascular: Negative for chest pain and palpitations. Gastrointestinal: Negative for abdominal pain, diarrhea, nausea and vomiting. Musculoskeletal: Negative for back pain, falls and neck pain. Skin: Negative for itching and rash. Neurological: Negative for tingling, speech change, seizures, loss of consciousness and weakness. Endo/Heme/Allergies: Does not bruise/bleed easily. Psychiatric/Behavioral: Negative for hallucinations, substance abuse and suicidal ideas. : see HPI Physical Exam: Filed Vitals: 03/08/21 0930 BP: 120/70 Pulse: 88 Resp: 18 Temp: 97.9 ??F (36.6 ??C) TempSrc: Temporal SpO2: 96% Weight: 88 kg (194 lb) Height: 5' 6 (1.676 m) Body mass index is 31.31 kg/m??. Constitutional: no acute distress Skin/Integumentary: no bruising or rashes on face or hands, scalp atraumatic Eyes: Extraocular muscles intact, sclera white, conjunctiva pink Ears, Nose, Mouth/Throat: neck normal range of motion and trachea midline, Respiratory: No coarse breath sounds or wheezing, breathing symmetric Gastrointestinal: Soft, non-tender, non-distended, Genitourinary: right CVA T, also she is hypersensitive on right abdominal wall as well Psychiatric: Mood and affect appropriate, alert and oriented to person, place and time, Neurologic: Normal gait, speech clear Lab/Radiology/Diagnostic Review: I have personally reviewed and independently examined the CT images. My findings are reported in mydiscussion with the associated imaging tests. Assessment/Plan: Lena Mcneal is a 50-year-old female with hx of right UPJO sp open repair at age 17 as well redo pyeloplasty in 2013. Lasix renal scans had shown no obstruction. However, she still have pain and discomfort which were partly musculoskeletal in nature. - I spent a 60 minutes going over all the imaging and work up - Unfortunately her options were limited - she tolerated poorly in the past with stent, she had hadtwo pyeloplasty with radiographically non obstructed right side - we discussed repeating lasix renal scan, trying out temporary stent vs nephrostomy tube. - We discussed nephrectomy as the last resort but given that her pain in unusual that it might not even help with the pain - I recommend going to tertiary center for further opinions including ureterolysis vs nephrectomy Ysamin Veloz MD (THANH VELOZ MD) FIREMAN documented in this encounter Plan of Treatment Upcoming Encounters Date Type Department Care Team (Late st Contact Info) Description 03/14/2024 11:45 AM POT FIREMAN Office Visit [facility] [phone] Marvin Mckeon MD [facility] [address] [place] [address] 03/20/2024 11:30 AM POT FIREMAN Office Visit [facility] Family Medicine - [place] 100 [place] [address] Yasmin Valenzuela II, MD 100 [place], [place] [phone] documented as of this encounter Visit Diagnoses Diagnosis Right flank pain- Primary Abdominal pain, unspecified site documented in this encounter Additional Health Concerns Assessment Noted Time PHQ-9 Depression Total Score: 0 03/08/19 9:30 AM POT FIREMAN documented as of this encounter Care Teams Entry Level Marketing Assistant Relationship Specialty Start Date End Date Jarred Rod MD PCP - General FAMILY PRACTICE 01/17/21 03/08/21 documented as of this encounter
--- OUTSIDE RECORDS SUMMARY | 2024-03-02 22:29 | XMS_ITS | Encounter Summary ---
Author Organization [facility] Address [address] [place] [address]. [place] [address] [place] [address] Care Team Providers Care Weaving Supervisor Name Role Phone Colton SILVEIRA MD, Yasmin Rushing Primary Care Provider Reason for Referral * Imaging (Routine) - Closed Specialty Diagnoses / Procedures Referred By Lyla chaney Referred To Contact RADIOLOGY Diagnoses Encounter for screening mammogram for malignant neoplasm of breast Procedures MG SCREENING W FELTON NOHEMY DIGI Yasmin Valenzuela II, MD [address] [place] [address] Phone: tel: fax: Referral ID Status Reason Start Date Expiration Date Visits Re quested Visits Authorized [id number] Closed 06/08/2021 07/08/2022 1 1 Reason for Visit * Reason Comments Follow Up Hypertension, Diabet es and review recent labs Encounter Details Date Type Department Care Team (Late st Contact Info) Description 06/08/2021 9:20 AM CDT Office Visit [facility] Family Medicine - [place] [address] [place] [phone] Yasmin Valenzuela II, MD [address] [place] [address] Follow Up (Hypertension, Diabetes and review recent labs) Social History Tobacco Use Types Packs/Day [...] Sign Reading Time Taken Comments Blood Pressure 130/74 06/08/2021 9:37 AM CDT Pulse 78 06/08/2021 9:21 AM CDT Temperature 36.8 ??C (98.2 ??F) 06/08/2021 9:21 AM CD T Respiratory Rate - - Oxygen Saturation 98% 06/08/2021 9:21 AM CDT Inhaled Oxygen Concentration - - Weight 84.8 kg (187 lb) 06/08/2021 9:21 AM CDT Height - - Body Mass Index 30.18 04/15/2021 4:29 PM DENSITY CONTROL PUNCHER documented in this encounter Functional Status * RETIRED Are you deaf or do you have serious difficulty hearing Answer Date of Assessment Author Status No 04/15/2021 11:33 PM DENSITY CONTROL PUNCHER Acti ve * RETIRED Are you blind or do you have serious difficulty seeing, even when wearing glasses? Answer Date of Assessment Author Status No 04/15/2021 11:33 PM DENSITY CONTROL PUNCHER Acti ve * Do you have serious difficulty walking or climbing stairs? Answer Date of Assessment Author Status No 04/15/2021 11:33 PM DENSITY CONTROL PUNCHER Erica Pope RN Active * Do you have difficulty [...] Notes * Yasmin Valenzuela II, MD - 06/08/2021 9:20 AM CDT Images from the original note were not included. [facility] [place] [phone] OFFICE FOLLOW UP NOTE Encounter Date: 06/08/2021 Chief Complaint: Follow Up (Hypertension, Diabetes and review recent labs) History of Present Illness: 51-year-old female with history of diabetes, hypertension, decreased vision here to follow-up on lab work after adding Januvia to her diabetes regiment. She reports that her home blood sugars are markedly improved with the addition of Januvia. Patient made an appointment with optometry and will be seen in June. Patient is also due for annual mammogram for breast cancer screening. She is otherwise doing well today. Review Of Systems: Positive ROS items [...] mouth nightly. ) 90 tablet 3 ??? Dulaglutide (TRULICITY) 3 [...] Rash ??? Penicillins Rash Objective: Filed Vitals: 06/08/21 0921 06/08/21 0937 BP: (!) 142/83 130/74 Pulse: 78 Temp: 98.2 ??F (36.8 ??C) TempSrc: Oral SpO2: 98% Weight: 84.8 kg (187 lb) Nursing note reviewed. Physical Exam Vitals [...] or performed during the hospital encounter of 05/10/21 URINALYSIS Result Value Ref Range Specimen Type URINE CLEAN CATCH COLOR (U) LIGHT YELLOW TRANSPARENCY CLEAR Specific [place] (U) 1.012 1.001 - 1.030 U PH 5.5 5.0 - 9.0 LEUKOCYTE ESTERASE NEGATIVE NEGATIVE NITRITES NEGATIVE NEGATIVE PROTEIN (U) 30 (H) <30 MG/DL URINE GLUCOSE NORMAL NORMAL MG/DL U KETONES NEGATIVE NEGATIVE MG/DL UROBILINOGEN NORMAL NORMAL MG/DL BILIRUBIN (U) NEGATIVE NEGATIVE MG/DL BLOOD NEGATIVE NEGATIVE MUCUS RARE /LPF HYALINE CASTS RARE /LPF WBC/HPF 1 <6 /HPF RBC/HPF <1 <6 /HPF SQUAMOUS EPITHELIALS RARE /HPF COMPREHENSIVE METABOLIC PANEL Result Value Ref Range GLUCOSE 144 (H) 70 - 99 MG/DL BUN 18 7 - 18 MG/DL CREATININE S/P/B 1.19 (H) 0.55 - 1.02 MG/DL SODIUM 139 136 - 145 MMOL/L POTASSIUM 4.2 3.5 - 5.1 MMOL/L CHLORIDE S/P/B 106 100 - 108 MMOL/L CO2 30.1 21 - 32 MMOL/L CALCIUM 9.5 8.5 - 10.1 MG/DL BILIRUBIN TOTAL S/P/B 0.5 0.2 - 1.2 MG/DL TOTAL PROTEIN S/P/B 8.4 (H) 6.4 - 8.2 G/DL ALBUMIN S/P/B 3.7 3.4 - 5.0 G/DL AST 17 15 - 37 U/L ALT 26 14 - 55 U/L ALKALINE PHOSPHATASE S/P/B 135 50 - 136 U/L ANION GAP 2.9 (L) 5 - 15 MMOL/L BUN CREATININE RATIO 15.1 6 - 26 A/G RATIO 0.8 (L) 1.0 - 2.0 RATIO eGFR Non-Afr. Amer. 53 (L) >90 ML/MIN/1.73 M2 eGFR Afr. Amer. 62 (L) >90 ML/MIN/1.73 M2 ALBUMIN URINE RANDOM Result Value Ref Range CREATININE (U) 149.0 28 - 217 MG/DL MICROALBUMIN (U) 23.0 (H) <2.0 mg/dL ALBUMIN/CREAT RATIO 154.4 (H) <30 MG/G Counseling The patient and patient's family was counseled regarding instructions for management, patient and family education and importance of compliance with treatment. Assessment: 1. Type 2 diabetes mellitus with diabetic neuropathic arthropathy, with long- term current use of insulin (CMS/HCC) 2. Primary hypertension 3. Vision decreased 4. Encounter for screening mammogram for malignant neoplasm of breast MG SCREENING W FELTON NOHEMY DIGI Plan: No orders of the defined types were placed in this encounter. 1. Type 2 diabetes mellitus with diabetic neuropathic arthropathy, with long- term current use of insulin (CMS/HCC) Home blood sugars are markedly improved. We will continue Januvia 100 mg daily patient will follow up in clinic in 1 month for repeat [id number] hemoglobin A1c. 2. Primary hypertension Patient's blood pressure is at goal on recheck. She is spilling protein on her microalbumin study but is already maximized on her KELLIE inhibitor. If blood pressures become elevated at future follow-ups we will continue to consider Coreg addition. 3. Vision decreased Patient has her ophthalmology appointment in June for further evaluation on her vision. 4. Encounter for screening mammogram for malignant neoplasm of breast Mammogram is ordered for breast cancer screening. - MG SCREENING W FELTON NOHEMY DIGI There are no discontinued medications. YASMIN VALENZUELA MD 06/08/2021 Portions of this note were dictated using [employer] speech recognition software. Occasional wrong wordor sound-alike substitutions may have occurred due to the inherent limitations of voice recognition software. Please read the chart carefully and recognize, using context, where the substitutions may have occurred. documented in this encounter Plan of Treatment Upcoming Encounters Date Type Department Care Team (Late st Contact Info) Description 03/14/2024 11:45 AM DENSITY CONTROL PUNCHER Office Visit [facility] [phone] Marvin Mckeon MD [address] [facility] [address] [place] [address] 03/20/2024 11:30 AM DENSITY CONTROL PUNCHER Office Visit [facility] Family Medicine - [place] [address] [place] [phone] Yasmin Valenzuela II, MD [address] [place] [address] documented as of this encounter Procedures Procedure Name Priority Date/Time Associated Diagnosis Comments MG SCREENING W FELTON NOHEMY DIGI Routine 07/02/2021 1:12 PM CDT Encounter for screening mammogram for malignant neoplasm of breast documented in this encounter Results * MG SCREENING W FELTON NOHEMY DIGI (07/02/2021 1:12 PM CDT) Anatomical Region Laterality Modality Breast Bilateral Mammography 07/06/2021 10:1 4 AM CDT Impressions 07/06/2021 10:28 AM CDT =====IMPRESSION:===== No mammographic findings suggestive of malignancy ASSESSMENT: ACR BI-RADS 2 - BENIGN FINDING(S) Recommendation: 1: Routine Screening Bilateral COMMENTS: Ordered By: YASMIN VALENZUELA II Interpreted By: Wilian Cruz MD, 07/06/2021 [...] change from the prior exam. us Yasmin Valenzuela II, MD MAMMO Final R esult documented in this encounter Visit Diagnoses Diagnosis Type 2 diabetes mellitus with diabetic neuropathic arthropathy, with long-term current use of insulin ([facility])- Primary Primary hypertension Unspecified essential hypertension Vision decreased Unspecified visual loss Encounter for screening mammogram for malignant neoplasm of breast Other screening mammogram documented in this encounter Additional Health Concerns Assessment Noted Time PHQ-9 Depression Total Score: 0 03/08/19 22 9:30 AM DENSITY CONTROL PUNCHER documented as of this encounter Care Teams Weaving Supervisor Relationship Specialty Start Date End Date Yasmin Valenzuela II, MD [address] [place] [address] PCP - General FAMILY PRACTICE 03/09/21 documented as of this encounter
--- OUTSIDE RECORDS SUMMARY | 2024-03-02 22:29 | XMS_ITS | Encounter Summary ---
Author Organization [facility] Address [address] [place] [address]. [place] [address] [place] [address] Care Team Providers Care Management Developer Name Role Phone Colton SILVEIRA MD, Abiodun Rushing Primary Care Provider Reason for Visit * Reason Onset Date Comments Concerns 04/15/2021 Encounter Details Date Type Department Care Team (Late st Contact Info) Description 04/15/2021 Telephone [facility] Family Medicine - [place] [address] [place] [phone] Abiodun Segura II, MD [address] [place] [address] Concerns Social History Tobacco Use Types Packs/Day Years [...] suspected to have Coronavirus/COVID-19? No / Unsure 04/13/2021 9:54 AM SEO STRATEGIST documented as of this encounter Functional Status [...] Notes * Abiodun Segura II, MD - 04/15/2021 12:07 PM CST Patient called. Her symptoms sound obstructive. She will report to the ER for evaluation and treatment. STRATEGIST * Abiodun Segura II, MD - 04/15/2021 12:07 PM CST ----- Message from Sydney Cobos MA sent at 04/15/2021 11:22 AM SEO STRATEGIST ----- ----- Message ----- From: Willa Merino Sent: 04/15/2021 11:13 AM SEO STRATEGIST To: Abiodun Benítez Nurse STRATEGIST * Sydney Cobos MA - 04/15/2021 11:22 AM CST Please advise STRATEGIST * Willa Merino - 04/15/2021 11:06 AM CST Call back [phone] She has been taking pills that go under tongue for nausea, tums, mylanta. Says that she has a foul smelling belch - causing dry heaving or vomiting started past 24/48 hours-constant pain in stomach above belly button has had it since apr 04, not able to pass gas, Smallbowel movement this morning, lots of straining-last one was a week ago. Wants to know if something could be called in or what she needs to do. Would be able to come in for appt if suggested as long as she is able to get home before dark - blind in right eye. Pharmacy is [facility] in [place]. STRATEGIST documented in this encounter Plan of Treatment Upcoming Encounters Date Type Department Care Team (Late st Contact Info) Description 03/14/2024 11:45 AM SEO STRATEGIST Office Visit [facility] [phone] Marvin Mckeon MD [address] [facility] [address] [place], [place] [phone] 03/20/2024 11:30 AM SEO STRATEGIST Office Visit [facility] Family Medicine - [place] [phone] Abiodun Segura II, MD [address] [place] [phone] documented as of this encounter Visit Diagnoses Not on filedocumented in this encounter Additional Health Concerns Assessment Noted Time PHQ-9 Depression Total Score: 0 03/08/19 22 9:30 AM SEO STRATEGIST documented as of this encounter Care Teams Management Developer Relationship Specialty Start Date End Date Abiodun Segura II, MD [address] [place] [address] PCP - General FAMILY PRACTICE 03/09/21 documented as of this encounter
--- OUTSIDE RECORDS SUMMARY | 2024-03-02 22:29 | XMS_ITS | Encounter Summary ---
Author Organization [facility] Address [address] [place] [address]. [place] [address] [place] [address] Care Team Providers Care Blast Hole Driller Name Role Phone Jarred Rod MD Primary Care Provider Unav ailable Reason for Referral * Imaging (Routine) - Closed Specialty Diagnoses / Procedures Referred By Lyla chaney Referred To Contact RADIOLOGY Diagnoses Atheroscler of [place] artery of both legs with intermit claudication (CMS/HCC) Right foot pain Left foot pain Other abnormalities of gait and mobility Localized edema Procedures USV ART REST W ADRIANA LOW EXT USV ART [place] [address] [address] [facility] [place] [address] Phone: tel: fax: Referral ID Status Reason Start Date Expiration Date Visits Re quested Visits Authorized [id number] Closed 01/17/2021 02/16/2022 1 1 TING CARD MAKER Reason for Visit * Imaging (Routine) - Closed Specialty Diagnoses / Procedures Referred By Contac t Referred To Contact RADIOLOGY Diagnoses Atheroscler of [place] artery of both legs with intermit claudication (CMS/HCC) Right foot pain Left foot pain Other abnormalities of gait and mobility Localized edema Procedures USV ART REST W ADRIANA LOW EXT USV ART [place]UPLEX [place] [address] [address] [facility] [place] [address] Phone: tel: fax: Referral ID Status Reason Start Date Expiration Date Visits Re quested Visits Authorized [id number] Closed 01/17/2021 02/16/2022 1 1 Encounter Details Date Type Department Care Team (Latest Contact Info) Description 01/24/2021 11:00 AM GREETING CARD MAKER - 01/24/2021 11:59 PM GREETING CARD MAKER Hospital Encounter [facility] [address] [place] [address] [place] [address] [place] [address] Discharge Disposition: Home or Self Care (Routine [...] have Coronavirus / COVID-19? No / Unsure 01/24/2021 11:10 AM GREETING CARD MAKER documented as of this encounter Functional Status [...] Assessment Author Status Yes 08/12/2019 3:00 AM Shelby Blake R N Active * Because of a physical, mental, or emotional condition, do you have difficulty doing errands alone such as visiting a doctor's office or shopping? Answer Date of Assessment Author Status Yes 08/12/2019 3:00 AM Shelby Blake R N Active documented as of this encounter Mental Status * Because of a physical, mental, or emotional condition, do you have serious difficulty concentrating, remembering, or making decisions? Answer Entry Date Author Status No 08/12/2019 3:00 AM Shelby Blake R N Active documented in this encounter Medications at Time of Discharge amLODIPine 10 MG tabletIndications:H ypertension, unspecified type [The details of the medication are not available because there are pending changes by a home health clinician.] 90 tablet 3 1 08/08/19 23 HUMALOG MIX 75/25 (75-25) 100 UNIT/ML Suspension Take 55 units in AM and 50 units PM, this should be titrated depending on your blood sugar numbers. 1 vial 1 7 05/17/19 22 HYDROCHLOROTHIAZIDE 25 MG tabletIndications:P rimary hypertension Take 1 tablet by mouth once daily 90 tablet 1 04/16/19 22 lisinopril 40 MG tablet Take 40 mg by mouth nightly. 7 06/01/19 22 meloxicam 15 MG tabletIndications:C hronic bilateral low back pain without sciatica Take 1 tablet (15 mg total) by mouth daily. 30 tablet 1 1 04/16/19 22 Misc. Devices (PILL SPLITTER) MiscIndications:Olivia jonatan hypertension 1 Device by Does not apply route daily. 1 each 1 1 08/18/19 22 nitroglycerin 0.[address] 0.4 mg under the tongue every 5 (five) minutes as needed. FOR CHEST PAIN DO NOT EXCEED A TOTAL OF 3 DOSES IN 15 MINUTES 1 12/17/19 22 ondansetron 4 MG disintegrating tablet Take 1 tablet (4 mg total) by mouth every 8 (eight) hours as needed for Nausea. 20 tablet 1 04/12/19 22 RELION INSULIN SYRINGE 31G X 15/64 1 ML MiscIndications:Typ e 2 diabetes mellitus with diabetic neuropathic arthropathy, with long-term current use of insulin ([facility]) USE 1 SYRINGE SUBCUTANEOUSLY TWICE DAILY 100 each 5 1 01/02/20 22 simvastatin 40 MG tablet Take 40 mg by mouth nightly at bedtime. 7 07/12/19 22 spironolactone 25 MG tabletIndications:P rimary hypertension Take 0.5 tablets (12.5 mg total) by mouth daily. 45 tablet 3 1 04/16/19 22 TRULICITY 1.5 MG/0.5ML Solution Pen-injectorIndicat ions:Type 2 diabetes mellitus with diabetic neuropathic arthropathy, with long-term current use of insulin ([facility]) INJECT 1.5 MG SUBCUTANEOUSLY ONCE EVERY 7 DAYS 4 mL 1 1 03/21/19 22 documented as of this encounter Plan of Treatment Upcoming Encounters Date Type Department Care Team (Late st Contact Info) Description 03/14/2024 11:45 AM GREETING CARD MAKER [facility] [phone] Marvin Mckeon MD [address] [facility] [address] [place], [place] [phone] 03/20/2024 11:30 AM GREETING CARD MAKER Office Visit [facility] Family Medicine - [place] [address] [place] [phone] Abiodun Segura II, MD [address] [place], [place] [phone] documented as of this encounter Procedures Procedure Name Priority Date/Time Associated Diagnosis Comments USV ART REST W ADRIANA LOW EXT Routine 01/24/2021 12:34 PM GREETING CARD MAKER Atheroscler of [place] artery of both legs with intermit claudication Right foot pain Left foot pain Other abnormalities of gait and mobility Localized edema documented in this encounter Results * USV ART REST W ADRIANA LOW EXT (01/24/2021 12:34 PM GREETING CARD MAKER) Anatomical Region Laterality Modality Extremity Vascular Ultraso und 01/24/2021 12:3 6 PM GREETING CARD MAKER Narrative 01/28/2021 9:47 AM GREETING CARD MAKER ?ARTERIAL DOPPLER - ADRIANA ?BILATERAL LOWER EXTREMITY ? VASCULAR LAB Pat.Name: ??LENA YOUNGBLOOD ?Pat.ID: ?[id number] ? St.Date: ?? 01/24/2021 ? Exam Time: 12:36:00 PM ? Study Type:MARINO VS Arterial Doppler Legs NOHEMY ??Age: ??1970,50Y ? Sex: ? FEMALE ?Sonogrphr: Erica Rogers RVT ? Pat. Stat.:Outpatient ? History / Clinical:Bilateral foot pain. PMH; Charcot left foot with L2-L3 amp, dm, hld, htn Procedures: Doppler waveforms, Digit PPG, Systolic Pressures w/ADRIANA ++++++++++++++++++++++++++++++++++++ SUMMARY: ++++++++++++++++++++++++++++++++++++ Joceline ADRIANA Criteria: ? [...] triphasic, high amplitude; Popliteal biphasic, medium amplitude; ??Posterior Tibial biphasic, medium amplitude with ADRIANA 1.18 ; ??DP/Anterior Tibial triphasic, high amplitude with ADRIANA 1.19 . ??Digit flow by PPG is high amplitude with DBI 0.972 . Left leg: ??Common Femoral waveform is triphasic, high amplitude; Popliteal biphasic, medium amplitude; ??Posterior Tibial biphasic, low amplitude with ADRIANA 1.04 ; ??DP/Anterior Tibial biphasic, medium amplitude with ADRIANA 1.24 . ??Digit flow by PPG is low amplitude with DBI 0.694 . CONCLUSION: ?? ADRIANA right > 1.0 with triphasic waveforms, with toe index 0.972 . ADRIANA left > 1.0 with triphasic waveforms, with toe index 0.694 . No significant peripheral arterial disease at rest. ?? No evidence of tibial artery disease bilaterally. ??There is no evidence of small vessel disease or embolism in either foot. ++++++++++++++++++++++++++++++++++++ FINDINGS: ++++++++++++++++++++++++++++++++++++ ++++++++++++++++++++++++++++++++++++ MEASUREMENTS: ++++++++++++++++++++++++++++++++++++ ?PRESSURES Right Brachial ?? Brach P ?144 mmHg ? Right Ankle DP ?? AnkleDP P ?172 mmHg ? Right Ankle PT ?? AnklePT P ?170 mmHg ? Right Great Toe ?? GreatToe P ? 140 mmHg ? Right ADRIANA PT ?? ADRIANA PT ?1.18 ? Right ADRIANA DP ?? ADRIANA DP ?1.19 ? Right TBI ?? TBI ?0.972 ? Left Brachial ?? Brach P ?140 mmHg ? Left Ankle DP ?? AnkleDP P ?178 mmHg ? Left Ankle PT ?? AnklePT P ?150 mmHg ? Left Great Toe ?? GreatToe P ? 100 mmHg ? Left ADRIANA PT ?? ADRIANA PT ?1.04 ? Left ADRIANA DP ?? ADRIANA DP ?1.24 ? Left TBI ?? TBI ?0.694 ? Signed 01/28/2021 09:47 AM Joel Santiago M.D. Procedure Note Joel Santiago MD - 01/28/2021 ARTERIAL DOPPLER - ADRIANA BILATERAL LOWER EXTREMITY VASCULAR LAB Pat.Name: LENA YOUNGBLOOD Pat.ID: [id number] .Date: 01/24/2021 Exam Time: 12:36:00 PM Study Type:MARINO VS Arterial Doppler Legs NOHEMY Age: 2 1970,50Y Sex: FEMALE Sonogrphr: Erica Rogers RVT Pat. Stat.:Outpatient History / Clinical:Bilateral foot [...] amplitude; Posterior Tibial biphasic, medium amplitude with ADRAINA 1.18 ; DP/Anterior Tibial triphasic, high amplitude [...] Signed 01/28/2021 09:47 AM Joel Santiago M.D. Victoriano Langston MD VAS Final Result documented in this encounter Visit Diagnoses Diagnosis Atheroscler of [place] artery of both legs with intermit claudication (CMS/HCC) Atherosclerosis of skag[place] arteries of the extremities with intermittent claudication Right foot pain Pain in limb Left foot pain Pain in limb Other abnormalities of gait and mobility Localized edema Edema documented in this encounter Additional Health Concerns Assessment Noted Time PHQ-9 Depression Total Score: 0 10/09/19 21 10:02 AM CDT documented as of this encounter Care Teams Blast Hole Driller Relationship Specialty Start Date End Date Jarred Rod MD PCP - General FAMILY PRACTICE 01/17/21 03/08/21 documented as of this encounter
--- OUTSIDE RECORDS SUMMARY | 2024-03-02 22:29 | XMS_ITS | Encounter Summary ---
Author Organization [facility] Address [address] [place] [address]. 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 Other abnormalities of gait and mobility Procedures USV ART REST W ADRIANA LOW EXT USV ART DUPLEX+ADRIANA LOW NOHEMY USV ART [place]UP[place] [address] [place] [address] Phone: tel: fax: Referral ID Status Reason Start Date Expiration Date Visits Re quested Visits Authorized [id number] Closed 05/31/2021 06/30/2022 1 1 Reason for Visit * Imaging (Routine) - Closed Specialty Diagnoses / Procedures Referred By Contac t Referred To Contact RADIOLOGY Diagnoses Type 2 diabetes mellitus with diabetic neuropathic arthropathy (CMS/HCC HHS/HCC) Atherosclerosis of [place] arteries of extremities with intermittent claudication, bilateral legs (CMS/HCC) 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 Other abnormalities of gait and mobility Procedures USV ART REST W ADRIANA LOW EXT USV ART DUPLEX+ADRIANA LOW NOHEMY USV [place] [address] [address] Phone: tel: fax: Referral ID Status Reason Start Date Expiration Date Visits Re quested Visits Authorized [id number] Closed 05/31/2021 06/30/2022 1 1 Encounter Details Date Type Department Care Team (Latest Contact Info) Description 06/21/2021 12:30 PM CDT - 06/21/2021 11:59 PM CDT Hospital Encounter [facility] [place] [address] [place] [address] [place] [address] Discharge Disposition: Home or Self [...] Assessment Author Status No 04/15/2021 11:33 PM COMPUTER OPERATIONS MANAGER Acti ve * RETIRED Are you blind or do you have serious difficulty seeing, even when wearing glasses? Answer Date of Assessment Author Status No 04/15/2021 11:33 PM RUSLAN Acti ve * Do you have serious [...] Pappas RN Active documented in this encounter Medications at Time of Discharge amLODIPine 10 MG tabletIndications:H ypertension, unspecified type [The details of the medication are not available because there are pending changes by a home health clinician.] 90 tablet 3 1 08/08/19 23 ciprofloxacin 500 MG tabletIndications:A cute cystitis without hematuria Take 1 tablet (500 mg total) by mouth 2 (two) times daily for 7 days. 14 tablet 2 06/28/19 22 Dulaglutide (TRULICITY) 3 MG/0.5ML Solution Pen-injectorIndicat ions:Type 2 diabetes mellitus with diabetic neuropathic arthropathy, with long-term current use of insulin ([facility]) Inject 3 mg into the skin weekly. 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, with long-term current use of insulin ([facility]) USE 1 STRIP TO CHECK GLUCOSE TWICE DAILY 200 strip 3 2 01/02/20 22 HUMALOG MIX 75/25 (75-25) 100 UNIT/ML SuspensionIndicatio ns:Type 2 diabetes mellitus with retinopathy, with long-term current use of insulin, macular edema presence unspecified, unspecified laterality, unspecified retinopathy severity ([facility]) Inject 60 units ;subcutaneously in the morning and 55 in the evening 40 mL 3 2 01/02/20 22 linaCLOtide 145 MCG capsuleIndications: Chronic idiopathic [...] 1 12/17/19 22 ondansetron 4 MG disintegrating tabletIndications:N ausea Take 1 tablet (4 mg total) by mouth every 8 (eight) hours as needed for Nausea. 20 tablet 2 07/12/19 polyethylene glycol 17 GM/SCOOP powder Take 17 g by mouth daily. Dissolve powder in 240 mL water 07/10/19 RELION INSULIN SYRINGE 31G X 15/64 1 ML MiscIndications:Typ e 2 diabetes mellitus with diabetic neuropathic arthropathy, with long-term current use of insulin ([facility]) USE 1 SYRINGE SUBCUTANEOUSLY TWICE DAILY 100 each 5 1 01/02/20 22 simvastatin 40 MG tablet Take 40 mg by mouth nightly at bedtime. 7 07/12/19 22 SITagliptin 100 MG tabletIndications:T ype 2 diabetes mellitus with diabetic neuropathic arthropathy, with long-term current use of insulin ([facility] HHS/HCC) Take 1 tablet (100 mg total) by mouth daily. 90 tablet 3 2 12/27/19 22 documented as of this encounter Plan of Treatment Upcoming Encounters Date Type Department Care Team (Late st Contact Info) Description 03/14/2024 11:45 AM COMPUTER OPERATIONS MANAGER Office Visit [facility] [phone] Marvin Mckeon MD [address] [place] [address] 03/20/2024 11:30 AM COMPUTER OPERATIONS MANAGER Office Visit [facility] Family Medicine - [place] [address] [place] [phone] Abiodun Segura II, MD [address] [place], [place] [phone] documented as of this encounter Procedures Procedure Name Priority Date/Time Associated Diagnosis Comments USV ART REST W ADRIANA LOW EXT Routine 06/21/2021 1:32 PM CDT Type 2 diabetes mellitus with diabetic neuropathic arthropathy ([facility]) Atherosclerosis of [place] arteries of extremities with intermittent claudication, bilateral legs 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 VASCULAR LAB Pat.Name: ??LENA YOUNGBLOOD ?Pat.ID: ?[id number] ? St.Date: ?? 06/21/2021 ?Refer.MD: ??Abiodun Segura ? Exam Time: 1:02:00 PM ? Study Type:MARINO VS Arterial Doppler Legs NOHEMY ??Age: ??1970,51Y ? Sex: ? FEMALE ? Sonogrphr: Shahla Toscano, SOURAV, RVT Pat. Stat.:Outpatient ? History / Clinical: R2 discoloration. PMH- DM. HTN. neurop. HLD. L2, L3 amp- osteomyelitis. Prior 01/24/2021- Rt 1.19, Lt 1.24 Procedures: ??Doppler waveforms, Digit PPG, Systolic Pressures w/ADRIANA ++++++++++++++++++++++++++++++++++++ [...] ??Posterior Tibial biphasic, medium amplitude with ADRIANA 1.11 ; ??DP/Anterior Tibial triphasic, medium amplitude with ADRIANA 1.12 . ??Digit flow by PPG is medium amplitude with DBI 1 . Left leg: ??Common Femoral waveform is triphasic, high amplitude; Popliteal triphasic, high amplitude; ??Posterior Tibial triphasic, medium amplitude with ADRIANA 1.11 ; ??DP/Anterior Tibial triphasic, medium amplitude with ADRIANA 1.24 . ??Digit flow by PPG is low amplitude with DBI 0.75 . Compared to previous exam done 01/24/2021 , there is no significant change. CONCLUSION:ADRIANA right > 1.0 with triphasic waveforms, with toe index 1 . ADRIANA left > 1.0 with triphasic waveforms, with toe index 0.75 . No significant peripheral arterial disease at rest. ?? No evidence of tibial artery disease bilaterally. ??There is no evidence of small vessel disease or embolism in either foot. ?? ++++++++++++++++++++++++++++++++++++ FINDINGS: ++++++++++++++++++++++++++++++++++++ ++++++++++++++++++++++++++++++++++++ MEASUREMENTS: ++++++++++++++++++++++++++++++++++++ ?DOPPLER Left DECATING MACHINE OPERATOR ?? DECATING MACHINE OPERATOR PSV ?125 cm/s ? Left Dist Pop A ?? Dist Pop A PSV ??92.5 cm/s ? Left Dist STEEL WORKER ?? Dist STEEL WORKER PSV ?52.4 cm/s ? Left Dist DOMINGA ?? Dist DOMINGA PSV ?74.8 cm/s ? Right DECATING MACHINE OPERATOR ?? DECATING MACHINE OPERATOR PSV ?151 cm/s ? Right Dist Pop A ?? Dist Pop A PSV ??97.7 cm/s ? Right Dist STEEL WORKER ?? Dist STEEL WORKER PSV ?49.4 cm/s ? Right Dist DOMINGA ?? Dist DOMINGA PSV ?70.3 cm/s ?PRESSURES Right Brachial ?? Brach P ?142 mmHg ? Right Ankle DP ?? AnkleDP P ?162 mmHg ? Right Ankle PT ?? AnklePT P ?160 mmHg ? Right Great Toe ?? GreatToe P ? 144 mmHg ? Right ADRIANA PT ?? ADRIANA PT ?1.11 ? Right ADRIANA DP ?? ADRIANA DP ?1.12 ? Right TBI ?? TBI ?1 ? Left Brachial ?? Brach P ?144 mmHg ? Left Ankle DP ?? AnkleDP P ?178 mmHg ? Left Ankle PT ?? AnklePT P ?160 mmHg ? Left Great Toe ?? GreatToe P ? 108 mmHg ? Left ADRIANA PT ?? ADRIANA PT ?1.11 ? Left ADRIANA DP ?? ADRIANA DP ?1.24 ? Left TBI ?? TBI ? 0.75 ? Signed 06/24/2021 10:37 AM Hubert Barrera M.D. Procedure Note Hubert Barrera MD - 06/24/2021 ARTERIAL DOPPLER - ADRIANA BILATERAL LOWER EXTREMITY VASCULAR LAB Pat.Name: LENA YOUNGBLOOD Pat.ID: [id number] .Date: 06/21/2021 Refer.MD: Abiodun Segura Exam Time: 1:02:00 PM Study Type:MARINO VS Arterial Doppler Legs NOHEMY Age: 2 1970,51Y Sex: FEMALE Sonogrphr: Shahla Toscano, MEMEMS, RVT Pat. Stat.:Outpatient History / Clinical: R2 discoloration. PMH- DM. HTN. neurop. HLD. L2, L3 amp- osteomyelitis. Prior 01/24/2021- Rt 1.19, Lt 1.24 Procedures: Doppler waveforms, Digit PPG, [...] Posterior Tibial biphasic, medium amplitude with ADRIANA 1.11 ; DP/Anterior Tibial triphasic, medium amplitude with ADRIANA 1.12 . Digit flow by PPG is medium amplitude with DBI 1 . Left leg: Common Femoral waveform is triphasic, high amplitude; Popliteal triphasic, high amplitude; Posterior Tibial triphasic, medium amplitude with ADRIANA 1.11 ; DP/Anterior Tibial triphasic, medium amplitude with ADRIANA 1.24 . Digit flow by PPG is low amplitude with DBI 0.75 . Compared to previous exam done 01/24/2021 , there is no significant change. CONCLUSION:ADRIANA right > 1.0 with triphasic waveforms, with toe index 1 . ADRIANA left > 1.0 with triphasic waveforms, with toe index 0.75 . No significant peripheral arterial disease at rest. No evidence of tibial artery disease bilaterally. There is no evidence of small vessel disease or embolism in either foot. ++++++++++++++++++++++++++++++++++++ FINDINGS: ++++++++++++++++++++++++++++++++++++ ++++++++++++++++++++++++++++++++++++ MEASUREMENTS: ++++++++++++++++++++++++++++++++++++ DOPPLER Left DECATING MACHINE OPERATOR DECATING MACHINE OPERATOR PSV 125 cm/s Left Dist Pop A Dist Pop A PSV 92.5 cm/s Left Dist STEEL WORKER Dist STEEL WORKER PSV 52.4 cm/s Left Dist DOMINGA Dist DOMINGA PSV 74.8 cm/s Right DECATING MACHINE OPERATOR DECATING MACHINE OPERATOR PSV 151 cm/s Right Dist Pop A Dist Pop A PSV 97.7 cm/s Right Dist STEEL WORKER Dist STEEL WORKER PSV 49.4 cm/s Right Dist DOMINGA Dist DOMINGA PSV 70.3 cm/s PRESSURES Right Brachial Brach P 142 mmHg Right Ankle DP AnkleDP P 162 mmHg Right Ankle PT AnklePT P 160 mmHg Right Great Toe GreatToe P 144 mmHg Right ADRIANA PT ADRIANA PT 1.11 Right ADRIANA DP ADRIANA DP 1.12 Right TBI TBI 1 Left Brachial Brach P 144 mmHg Left Ankle DP AnkleDP P 178 mmHg Left Ankle PT AnklePT P 160 mmHg Left Great Toe GreatToe P 108 mmHg Left ADRIANA PT ADRIANA PT 1.11 Left ADRIANA DP ADRIANA DP 1.24 Left TBI TBI 0.75 Signed 06/24/2021 10:37 AM Hubert Barrera M.D. Victoriano Langston MD VAS Final Result documented in this encounter Visit Diagnoses Diagnosis Type 2 diabetes mellitus with diabetic neuropathic arthropathy ([facility]) Type II or unspecified type diabetes mellitus with neurological manifestations, not stated as uncontrolled Atherosclerosis of [place] arteries of extremities with intermittent claudication, bilateral legs ([facility]) Nail dystrophy Other specified disease of nail Acquired keratoderma palmaris et plantaris Acquired keratoderma Other abnormalities of gait and mobility documented in this encounter Additional Health Concerns Assessment Noted Time PHQ-9 Depression Total Score: 0 03/08/19 9:30 AM COMPUTER OPERATIONS MANAGER documented as of this encounter Care Teams Physical Education Instructor Relationship Specialty Start Date End Date Abiodun Segura II, MD [address] [place] [address] PCP - General FAMILY PRACTICE 03/09/21 documented as of this encounter
--- OUTSIDE RECORDS SUMMARY | 2024-03-02 22:29 | XMS_ITS | Encounter Summary ---
Author Organization [facility] Address [address] [place] [address]. [place] [address] [place] [address] Care Team Providers Care Customer Experience Retail Clerk Name Role Phone Colton SILVEIRA MD, Yasmin Rushing Primary Care Provider Reason for Visit * Imaging (Routine) - Closed Specialty Diagnoses / Procedures Referred By Lyla chaney Referred To Contact RADIOLOGY Diagnoses Encounter for screening mammogram for malignant neoplasm of breast Procedures MG SCREENING W [place] NOHEMY RAISSAI Yasmin Valenzuela II, MD [address] [place] [address] Phone: tel: fax: Referral ID Status Reason Start Date Expiration Date Visits Re quested Visits Authorized [id number] Closed 06/08/2021 07/08/2022 1 1 Encounter Details Date Type Department Care Team (Late st Contact Info) Description 07/02/2021 12:30 PM CDT - 07/02/2021 11:59 PM CDT Hospital Encounter [facility] Mammography [address] [place] [address] Yasmin Valenzuela II, MD [address] [place] [address] Discharge Disposition: Home or Self Care [...] Assessment Author Status No 04/15/2021 11:33 PM ADMINISTRATIVE DIETITIAN Acti ve * RETIRED Are you blind or do you have serious difficulty seeing, even when wearing glasses? Answer Date of Assessment Author Status No 04/15/2021 11:33 PM ADMINISTRATIVE DIETITIAN Acti ve * Do you have serious [...] clinician.] 90 tablet 3 1 08/08/19 23 Dulaglutide (TRULICITY) 3 MG/0.5ML Solution Pen-injectorIndicat ions:Type 2 diabetes mellitus with diabetic neuropathic arthropathy, with long-term current use of insulin ([facility]) Inject 3 mg into the skin weekly. 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, with long-term current use of insulin ([facility]) USE 1 STRIP TO CHECK GLUCOSE TWICE DAILY 200 strip 3 2 01/02/20 22 HUMALOG MIX 75/25 (75-25) 100 UNIT/ML SuspensionIndicatio ns:Type 2 diabetes mellitus with retinopathy, with long-term current use of insulin, macular edema presence unspecified, unspecified laterality, unspecified retinopathy severity ([facility]) Inject 60 units ;subcutaneously in the morning [...] needed for Nausea. 20 tablet 2 07/12/19 22 polyethylene glycol 17 GM/SCOOP powder Take 17 g by mouth daily. Dissolve powder in 240 mL water 07/10/19 22 RELION INSULIN SYRINGE 31G X 15 1 ML MiscIndications:Typ e 2 diabetes mellitus with diabetic neuropathic arthropathy, with long-term current use of insulin ([facility]) USE 1 SYRINGE SUBCUTANEOUSLY TWICE DAILY 100 each 5 1 01/02/20 22 simvastatin 40 MG tablet Take 40 mg by mouth nightly at bedtime. 7 07/12/19 22 SITagliptin 100 MG tabletIndications:T ype 2 diabetes mellitus with diabetic neuropathic arthropathy, with long-term current use of insulin ([facility]) Take 1 tablet (100 mg total) by mouth daily. 90 tablet 3 2 12/27/19 22 documented as of this encounter Plan of Treatment Upcoming Encounters Date Type Department Care Team (Late st Contact Info) Description 03/14/2024 11:45 AM ADMINISTRATIVE DIETITIAN Office Visit [facility] [phone] Marvin Mckeon MD [address] [place] [address] 03/20/2024 11:30 AM ADMINISTRATIVE DIETITIAN Office Visit [facility] Family Medicine - [place] [address] [place] [phone] Yasmin Valenzuela II, MD [address] [place] [address] documented as of this encounter Procedures Procedure [...] Total Score: 0 03/08/19 22 9:30 AM ADMINISTRATIVE DIETITIAN documented as of this encounter Care Teams Customer Experience Retail Clerk Relationship Specialty Start Date End Date Yasmin Valenzuela II, MD [address] [place] [address] PCP - General FAMILY PRACTICE 03/09/21 documented as of this encounter
--- OUTSIDE RECORDS SUMMARY | 2024-03-02 22:29 | XMS_ITS | Encounter Summary ---
Author Organization [facility] Address [address] [place] [address]. [place], [place] [address] [place] [address] Care Team Providers Care Senior Cytogenetic Technologist Name Role Phone Colton SILVEIRA MD, Abiodun Rushing Primary Care Provider Encounter Details Date Type Department Care Team (Latest Contact Info) Description 04/13/2021 Travel Social History Tobacco Use Types Packs/Day [...] Coronavirus/COVID-19? No / Unsure 04/13/2021 9:54 AM CLINICAL PROJECT MANAGER documented as of this encounter Functional [...] Contact Info) Description 03/14/2024 11:45 AM CLINICAL PROJECT MANAGER Office Visit [facility] [phone] Marvin Mckeon MD [facility] [address] [place], [place] [phone] 03/20/2024 11:30 AM CLINICAL PROJECT MANAGER Office Visit [facility] Family Medicine - [place] [address] [place] [phone] Abiodun Segura II, MD [address] [place] [phone] documented as of this encounter Visit Diagnoses Not on filedocumented in this encounter Additional Health Concerns Assessment Noted Time PHQ-9 Depression Total Score: 0 03/08/19 9:30 AM CLINICAL PROJECT MANAGER documented as of this encounter Care Teams Senior Cytogenetic Technologist Relationship Specialty Start Date End Date Abiodun Segura II, MD [address] [place] [address] PCP - General FAMILY PRACTICE 03/09/21 documented as of this encounter
--- OUTSIDE RECORDS SUMMARY | 2024-03-02 22:29 | XMS_ITS | Encounter Summary ---
Author Organization [facility] Address [address] [place] [address]. 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 Answer Date of Assessment Author Status No 04/15/2021 11:33 PM WASTEWATER PLANT OPERATOR Acti ve * Do you have serious [...] st Contact Info) Description 03/14/2024 11:45 AM WASTEWATER PLANT OPERATOR Office Visit [facility]-[address] [phone] Marvin Mckeon MD [facility] [address] [place], [place] [phone] 03/20/2024 11:30 AM WASTEWATER PLANT OPERATOR Office Visit [facility] Family Medicine - [place] [address] [place] [phone] Abiodun Segura II, MD [address] [place] [phone] documented as of this encounter Visit Diagnoses Not on filedocumented in this encounter Additional Health Concerns Assessment Noted Time PHQ-9 Depression Total Score: 0 03/08/19 9:30 AM WASTEWATER PLANT OPERATOR documented as of this encounter Care Teams Chain Builder Loom Control Relationship Specialty Start Date End Date Abiodun Segura II, MD [address] [place] [address] PCP - General FAMILY PRACTICE 03/09/21 documented as of this encounter
--- OUTSIDE RECORDS SUMMARY | 2024-03-02 22:29 | XMS_ITS | Encounter Summary ---
Author Organization [facility] Address [address] [place] [address]. [place] [address] [place] [address] Care Team Providers Care Game Room Attendant Name Role Phone Jarred Rod MD Primary Care Provider Unav ailable Reason for Visit * Reason Onset Date Comments Pre-visit Gap Closure 03/08/2021 Encounter Details Date Type Department Care Team (Late st Contact Info) Description 03/08/2021 Telephone [facility] Family Medicine - [place] [phone] Jarred Rod MD Pre-visit Gap Closure Social History Tobacco Use Types [...] COVID-19? No / Unsure 03/08/2021 9:11 AM MEDICAL RECORDS CODER documented as of this encounter Functional Status [...] Status No 08/12/2019 3:00 AM CDT TottyShelby A, R N Active * Do you have difficulty dressing or bathing? Answer Date of Assessment Author Status Yes 08/12/2019 3:00 AM CDT Totty Shelby A, R N Active * Because of a physical, mental, or emotional condition, do you have difficulty doing errands alone such as visiting a doctor's office or shopping? Answer Date of Assessment Author Status Yes 08/12/2019 3:00 AM CDT TottyJacintaa A, R N Active documented as of this encounter Mental Status * Because of a physical, mental, or emotional condition, do you have serious difficulty concentrating, remembering, or making decisions? Answer Entry Date Author Status No 08/12/2019 3:00 AM CDT TottyJacintaa A, R N Active documented in this encounter Progress Notes * Nida Keating CMA - 03/08/2021 9:31 AM CST Contacted patient for pre-visit gap closure. I am calling this patient as a patient advocate for the [employer]. My direct extension is [phone]. You can also reach me at: [phone] ([facility]) OR [phone] ([facility]) CAL RECORDS CODER documented in this encounter Plan of Treatment Upcoming Encounters Date Type Department Care Team (Late st Contact Info) Description 03/14/2024 11:45 AM MEDICAL RECORDS CODER Office Visit [facility] [phone] Marvin Mckeon MD [facility] [address] [place] [address] 03/20/2024 11:30 AM MEDICAL RECORDS CODER Office Visit [facility] Family Medicine - [address] [place] [phone] Abiodun Segura II, MD [address] [place] [address] documented as of this encounter Visit Diagnoses Not on filedocumented in this encounter Additional Health Concerns Assessment Noted Time PHQ-9 Depression Total Score: 0 03/08/19 9:30 AM MEDICAL RECORDS CODER documented as of this encounter Care Teams Game Room Attendant Relationship Specialty Start Date End Date Jarred Rod MD PCP - General FAMILY PRACTICE 01/17/21 03/08/21 documented as of this encounter
--- OUTSIDE RECORDS SUMMARY | 2024-03-02 22:29 | XMS_ITS | Encounter Summary ---
Author Organization [facility] Address [address] [place] [address]. [place] [address] [place] [address] Care Team Providers Care Negotiator Sales Name Role Phone Jarred Rod MD Primary Care Provider Unav ailable Encounter Details Date Type Department Care Team (Latest Contact Info) Description 02/18/2021 Scan HEALTH INFO SRVCS Scanned, Documents Social [...] COVID-19? No / Unsure 02/23/2021 9:53 AM COFFEE BAR ATTENDANT documented as of this encounter Functional Status [...] st Contact Info) Description 03/14/2024 11:45 AM COFFEE BAR ATTENDANT Office Visit [facility] [phone] [facility] [address] [place], [place] [phone] 03/20/2024 11:30 AM COFFEE BAR ATTENDANT Office Visit [facility] Family Medicine - [place] 100 [place] [phone] Abiodun Segura II, MD [address] [place] [phone] documented as of this encounter Visit Diagnoses Not on filedocumented in this encounter Additional Health Concerns Assessment Noted Time PHQ-9 Depression Total Score: 0 10/09/19 21 10:02 AM CDT documented as of this encounter Care Teams Negotiator Sales Relationship Specialty Start Date End Date Jarrde Rod MD PCP - General FAMILY PRACTICE 01/17/21 03/08/21 documented as of this encounter
--- OUTSIDE RECORDS SUMMARY | 2024-03-02 22:29 | XMS_ITS | Encounter Summary ---
Author Organization [facility] Address [address] [place] [address]. [place], [place] [address] [place] [address] Care Team Providers Care Agency Legal Counsel Name Role Phone Colton SILVEIRA MD, Abiodun Rushing Primary Care Provider Encounter Details Date Type Department Care Team (Latest Contact Info) Description 04/29/2021 Travel Social History Tobacco Use Types Packs/Day [...] suspected to have Coronavirus/COVID-19? No / Unsure 04/29/2021 2:08 PM DYE HOUSE VAT WORKER documented as of this encounter Functional Status * RETIRED Are you deaf or do you have serious difficulty hearing Answer Date of Assessment Author Status No 04/15/2021 11:33 PM DYE HOUSE VAT WORKER Acti ve * RETIRED Are you blind or do you have serious difficulty seeing, even when wearing glasses? Answer Date of Assessment Author Status No 04/15/2021 11:33 PM DYE HOUSE VAT WORKER Acti ve * Do you have serious [...] Info) Description 03/14/2024 11:45 AM DYE HOUSE VAT WORKER Office Visit [facility] [phone] Marvin Mckeon MD [facility] [address] [place] [phone] 03/20/2024 11:30 AM DYE HOUSE VAT WORKER Office Visit [facility] Family Medicine - [place] 100 [place] [phone] Abiodun Segura II, MD [address] [place] [phone] documented as of this encounter Visit Diagnoses Not on filedocumented in this encounter Additional Health Concerns Assessment Noted Time PHQ-9 Depression Total Score: 0 03/08/19 9:30 AM DYE HOUSE VAT WORKER documented as of this encounter Care Teams Agency Legal Counsel Relationship Specialty Start Date End Date Abiodun Segura II, MD 100 [place] [address] PCP - General FAMILY PRACTICE 03/09/21 documented as of this encounter
--- OUTSIDE RECORDS SUMMARY | 2024-03-02 22:29 | XMS_ITS | Encounter Summary ---
Author Organization [facility] Address [address] [place] [address]. [place], [place] [address] [place] [address] Care Team Providers Care Electrician Yard Name Role Phone Jarred Rod MD Primary Care Provider Unav ailable Encounter Details Date Type Department Care Team (Latest Contact Info) Description 03/04/2021 Travel Social History Tobacco Use Types Packs/Day [...] have Coronavirus / COVID-19? No / Unsure 03/04/2021 10:02 AM SENIOUR INSIGHT MANAGER documented as of this encounter Functional [...] st Contact Info) Description 03/14/2024 11:45 AM SENIOUR INSIGHT MANAGER Office Visit [facility] [phone] Marvin Mckeon MD [facility] [address] [place] [address] 03/20/2024 11:30 AM SENIOUR INSIGHT MANAGER Office Visit [facility] Family Medicine - [place] 100 [place] [phone] Abiodun Segura II, MD 100 [place] [address] documented as of this encounter Visit Diagnoses Not on filedocumented in this encounter Additional Health Concerns Assessment Noted Time PHQ-9 Depression Total Score: 0 10/09/19 21 10:02 AM CDT documented as of this encounter Care Teams Electrician Yard Relationship Specialty Start Date End Date Jarred Rod MD PCP - General FAMILY PRACTICE 01/17/21 03/08/21 documented as of this encounter
--- OUTSIDE RECORDS SUMMARY | 2024-03-02 22:29 | XMS_ITS | Encounter Summary ---
Author Organization [facility] Address [address] [place] [address]. [place] [address] [place] [address] Care Team Providers Care Crimper Operator Name Role Phone Colton SILVEIRA MD, Abiodun Rushing Primary Care Provider Reason for Visit * Reason Onset Date Comments Error 06/29/2021 Encounter Details Date Type Department Care Team (Late st Contact Info) Description 06/29/[address] [facility] Family Medicine [place] 100 [place] [address] Abiodun Segura II, MD 100 [place] [address] Error Social History Tobacco Use [...] Assessment Author Status No 04/15/2021 11:33 PM TARIFF COUNSEL Acti ve * RETIRED Are you blind or do you have serious difficulty seeing, even when wearing glasses? Answer Date of Assessment Author Status No 04/15/2021 11:33 PM TARIFF COUNSEL Acti ve * Do you have serious [...] st Contact Info) Description 03/14/2024 11:45 AM TARIFF COUNSEL Office Visit [facility] [phone] Marvin Mckeon MD [facility] [address] [place] [address] 03/20/2024 11:30 AM TARIFF COUNSEL Office Visit [facility] Family Medicine - [place] 100 [place] [phone] Abiodun Segura II, MD [address] [place] [address] documented as of this encounter Visit Diagnoses Not on filedocumented in this encounter Additional Health Concerns Assessment Noted Time PHQ-9 Depression Total Score: 0 03/08/19 9:30 AM TARIFF COUNSEL documented as of this encounter Care Teams Crimper Operator Relationship Specialty Start Date End Date Abiodun Segura II, MD 100 [place] [address] PCP - General FAMILY PRACTICE 03/09/21 documented as of this encounter
--- OUTSIDE RECORDS SUMMARY | 2024-03-02 22:29 | XMS_ITS | Encounter Summary ---
Author Organization [facility] Address [address] [place] [address]. [place] [address] [place] [address] Care Team Providers Care Catering Manager Name Role Phone Colton SILVEIRA MD, Abiodun Rushing Primary Care Provider Encounter Details Date Type Department Care Team (Late st Contact Info) Description 05/10/2021 11:45 AM CDT - 05/10/2021 11:59 PM CDT Hospital Encounter [facility] [place] [address] Abiodun Segura II, MD [address] [place] [address] Discharge Disposition: Home or Self Care [...] Assessment Author Status No 04/15/2021 11:33 PM COLD ROLLING COORDINATOR Acti ve * RETIRED Are you blind or do you have serious difficulty seeing, even when wearing glasses? Answer Date of Assessment Author Status No 04/15/2021 11:33 PM COLD ROLLING COORDINATOR Acti ve * Do you have [...] 3 1 08/08/19 23 cyclobenzaprine 10 MG tabletIndications:C hronic bilateral low back pain without sciatica Take 1 tablet (10 mg total) by mouth 3 (three) times daily as needed for Muscle Spasms. 30 tablet 5 2 05/21/19 22 Dulaglutide (TRULICITY) 3 MG/0.5ML Solution Pen-injectorIndicat ions:Type 2 diabetes mellitus with diabetic neuropathic arthropathy, with long-term current use of insulin ([facility]) Inject 3 mg into the skin weekly. 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, with long-term current use of insulin ([facility]) USE 1 STRIP TO CHECK GLUCOSE TWICE DAILY 200 strip 3 2 01/02/20 22 HUMALOG MIX 75/25 (75-25) 100 UNIT/ML Suspension Take 55 units in AM and 50 units PM, this should be titrated depending on your blood sugar numbers. 1 vial 1 7 05/17/19 22 linaCLOtide 145 MCG capsuleIndications: Chronic idiopathic constipation [The details of the medication are not available because there are pending changes by a home health clinician.] 30 capsule 5 2 03/15/19 23 lisinopril 40 MG tablet Take 40 mg by mouth nightly. 7 06/01/19 22 Misc. Devices (PILL SPLITTER) MiscIndications:Olivia jonatan [...] arthropathy, with long-term current use of insulin ([facility]) USE 1 SYRINGE SUBCUTANEOUSLY TWICE DAILY 100 each 5 1 01/02/20 simvastatin 40 MG tablet Take 40 mg by mouth nightly at bedtime. 7 07/12/19 22 SITagliptin 100 MG tabletIndications:T ype 2 diabetes mellitus with diabetic neuropathic arthropathy, with long-term current use of insulin ([facility] HHS/HCC) Take 1 tablet (100 mg total) by mouth daily. 90 tablet 3 2 12/27/19 documented as of this encounter Progress Notes * Abiodun Segura II, MD - 05/10/2021 11:50 AM CDT Lab results reviewed. Minor abnormalities noted. Will review with patient at upcoming appointment and make adjustments if needed. documented in this encounter Plan of Treatment Upcoming Encounters Date Type Department Care Team (Late st Contact Info) Description 03/14/2024 11:45 AM COLD ROLLING COORDINATOR Office Visit [facility] [phone] Marvin Mckeon MD Three [facility] [address] [place] [address] 03/20/2024 11:30 AM COLD ROLLING COORDINATOR Office Visit [facility] Family Medicine - [place] 100 [place] [phone] Abiodun Segura II, MD 100 [place] [address] documented as of this encounter Procedures Procedure Name Priority Date/Time Associated Diagnosis Comments COMPREHENSIVE METABOLIC PANEL Routine 05/10/2021 12:09 PM CDT Primary hypertension HC URINALYSIS AUTO W/O MICRO Routine 05/10/2021 12:03 PM CDT Renal calcinosis Hydronephrosis with ureteral stricture, not elsewhere classified ALBUMIN URINE RANDOM W/CREATININE Routine 05/10/2021 12:03 PM CDT Type 2 diabetes mellitus with diabetic neuropathic arthropathy, with long-term current use of insulin ([facility]HS/HCC) documented in this encounter Results * (ABNORMAL) COMPREHENSIVE METABOLIC PANEL (05/10/2021 12:09 PM CDT) [facility] GLUCOSE 144(H) 70 - 99 MG/DL 05/10/2021 1:17 PM CDT [facility] BUN 18 7 - 18 MG/DL 05/10/2021 1:17 PM CDT [facility] CREATININE S/P/B 1.19(H) 0.55 - 1.02 MG/DL 05/10/2021 1:17 PM CDT [facility] SODIUM S/P/B 139 136 - 145 MMOL/L 05/10/2021 1:17 PM CDT [facility] POTASSIUM S/P/B 4.2 3.5 - 5.1 MMOL/L 05/10/2021 1:17 PM CDT [facility] CHLORIDE S/P/B 106 100 - 108 MMOL/L 05/10/2021 1:17 PM CDT [facility] CO2 30.1 21 - 32 MMOL/L 05/10/2021 1:17 PM CDT [facility] CALCIUM S/P/B 9.5 8.5 - 10.1 MG/DL 05/10/2021 1:17 PM CDT [facility] BILIRUBIN TOTAL S/P/B 0.5 0.2 - 1.2 MG/DL 05/10/2021 1:17 PM CDT [facility] Comment: THIS ASSAY IS NOT RECOMMENDED FOR PATIENTS UNDERGOING TREATMENT WITH ELTROMBOPAG DUE TO THE POTENTIAL FOR FALSELY ELEVATED RESULTS. TOTAL PROTEIN S/P/B 8.4(H) 6.4 - 8.2 G/DL 05/10/2021 1:17 PM CDT [facility] ALBUMIN S/P/B 3.7 3.4 - 5.0 G/DL 05/10/2021 1:17 PM CDT [facility] AST 17 15 - 37 U/L 05/10/2021 1:17 PM CDT [facility] ALT 26 14 - 55 U/L 05/10/2021 1:17 PM CDT [facility] ALKALINE PHOSPHATASE S/P/B 135 50 - 136 U/L 05/10/2021 1:17 PM CDT [facility] ANION GAP 2.9(L) 5 - 15 MMOL/L 05/10/2021 1:17 PM CDT [facility] BUN CREATININE RATIO 15.1 6 - 26 05/10/2021 1:17 PM CDT [facility] A/G RATIO 0.8(L) 1.0 - 2.0 RATIO 05/10/2021 1:17 PM CDT [facility] EGFR NON-AFR. AMER. 53(L) >90 ML/MIN/1.7 3 M2 05/10/2021 1:17 PM CDT [facility] EGFR AFR. AMER. 62(L) >90 ML/MIN/1.7 3 M2 05/10/2021 1:17 PM CDT [facility] Comment: NOTE: eGFR is not calculated for patients <18 years of age. This is an estimated GFR (CKD EPI) and should not be used for calculating drug doses. 05/10/2021 12:0 9 PM CDT us Abiodun Segura II, MD LABORATORY Final R esult [facility] [address] [place] [address], [place] [phone] * (ABNORMAL) ALBUMIN URINE RANDOM (05/10/2021 12:03 PM CDT) CREATININE (U) 149.0 28 - 217 MG/DL 05/10/2021 1:29 PM CDT [facility] MICROALBUMIN (U) 23.0(H) <2.0 mg/dL 05/10/2021 1:29 PM CDT [facility] ALBUMIN/CREAT RATIO 154.4(H) <30 MG/G 05/10/2021 1:29 PM CDT [facility] URINE SPECIMEN / Unknown 05/10/2021 12:03 PM CDT us Abiodun Segura II, MD URINE ORDERABLES Final Result [facility] [address] [place] [address], [place] [phone] * (ABNORMAL) URINALYSIS (05/10/2021 12:03 PM CDT) SPECIMEN TYPE URINE CLEAN CATCH 05/10/2021 11:57 AM CDT [facility] COLOR (U) LIGHT YELLOW 05/10/2021 1:13 PM CDT [facility] TRANSPARENCY CLEAR 05/10/2021 1:13 PM CDT [facility] SPECIFIC GRAVITY (U) 1.012 1.001 - 1.030 05/10/2021 1:13 PM CDT [facility] U PH 5.5 5.0 - 9.0 05/10/2021 1:13 PM CDT [facility] LEUKOCYTES (U) NEGATIVE NEGATIVE 05/10/2021 1:13 PM CDT [facility] NITRITES NEGATIVE NEGATIVE 05/10/2021 1:13 PM CDT [facility] PROTEIN (U) 30(H) <30 MG/DL 05/10/2021 1:13 PM CDT [facility] URINE GLUCOSE NORMAL NORMAL MG/DL 05/10/2021 1:13 PM CDT [facility] KETONES MG/DL (U) NEGATIVE NEGATIVE MG/DL 05/10/2021 1:13 PM CDT [facility] UROBILINOGEN NORMAL NORMAL MG/DL 05/10/2021 1:13 PM CDT [facility] BILIRUBIN (U) NEGATIVE NEGATIVE MG/DL 05/10/2021 1:13 PM CDT [facility] BLOOD (U) NEGATIVE NEGATIVE 05/10/2021 1:13 PM CDT [facility] MUCUS RARE /LPF 05/10/2021 1:13 PM CDT [facility] HYALINE CASTS RARE /LPF 05/10/2021 1:13 PM CDT [facility] WBC/HPF 1 <6 /HPF 05/10/2021 1:13 PM CDT [facility] RBC/HPF <1 <6 /HPF 05/10/2021 1:13 PM CDT [facility] SQUAMOUS EPITHELIALS RARE /HPF 05/10/2021 1:13 PM CDT [facility] URINE SPECIMEN OBTAINED BY CLEAN CATCH PROCEDURE / Unknown 05/10/2021 12:03 PM CDT Abiodun Segura II, MD URINE ORDERABLES Final Result [facility] [address] [place] [address], [place] [phone] documented in this encounter Visit Diagnoses Diagnosis 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 Hydronephrosis with ureteral stricture, not elsewhere classified Primary hypertension Unspecified essential hypertension Type 2 diabetes mellitus with diabetic neuropathic arthropathy, with long-term current use of insulin ([facility]) documented in this encounter Additional Health Concerns Assessment Noted Time PHQ-9 Depression Total Score: 0 03/08/19 9:30 AM COLD ROLLING COORDINATOR documented as of this encounter Care Teams Catering Manager Relationship Specialty Start Date End Date Abiodun Segura II, MD [address] [place] [address] PCP - General FAMILY PRACTICE 03/09/21 documented as of this encounter
--- OUTSIDE RECORDS SUMMARY | 2024-03-02 22:29 | XMS_ITS | Encounter Summary ---
Author Organization [facility] Address [address] [place] [address]. [place] [address] [place] [address] Care Team Providers Care Elocution Teacher Name Role Phone Colton SILVEIRA MD, Abiodun Rushing Primary Care Provider Reason for Visit * Reason Onset Date Comments Pre-visit Gap Closure 04/27/2021 Encounter Details Date Type Department Care Team (Late st Contact Info) Description 04/27/2021 Telephone [facility] Family Medicine - [place] 100 [place] [address] Abiodun Segura II, MD 100 [place] [address] Pre-visit Gap Closure Social History Tobacco Use [...] suspected to have Coronavirus/COVID-19? No / Unsure 04/20/2021 9:45 AM HOSPITAL MANAGER documented as of this encounter Functional Status * RETIRED Are you deaf or do you have serious difficulty hearing Answer Date of Assessment Author Status No 04/15/2021 11:33 PM HOSPITAL MANAGER Acti ve * RETIRED Are you blind or do you have serious difficulty seeing, even when wearing glasses? Answer Date of Assessment Author Status No 04/15/2021 11:33 PM HOSPITAL MANAGER Acti ve * Do you have serious difficulty walking or climbing stairs? Answer Date of Assessment Author Status No 04/15/2021 11:33 PM HOSPITAL MANAGER Erica Pope RN Active * Do you have difficulty dressing or bathing? Answer Date of Assessment Author Status No 04/15/2021 11:33 PM HOSPITAL MANAGER Erica Pope RN Active * Because of a physical, mental, or emotional condition, do you have difficulty doing errands alone such as visiting a doctor's office or shopping? Answer Date of Assessment Author Status No 04/15/2021 11:33 PM HOSPITAL MANAGER Erica Pope RN Active documented as of this encounter Mental Status * Because of a physical, mental, or emotional condition, do you have serious difficulty concentrating, remembering, or making decisions? Answer Entry Date Author Status No 04/15/2021 11:33 PM Erica Pappas RN Active documented in this encounter Progress Notes * Nida Keating CMA - 04/27/2021 1:12 PM CST Contacted patient for pre-visit gap closure. I am calling this patient as a patient advocate for the [employer]. My direct extension is [phone]. You can also reach me at: [phone] ([facility]) OR [phone] ([facility]) ITAL MANAGER documented in this encounter Plan of Treatment Upcoming Encounters Date Type Department Care Team (Late st Contact Info) Description 03/14/2024 11:45 AM HOSPITAL MANAGER Office Visit [facility] [phone] Marvin Mckeon MD Three [facility] [address] [place] [address] 03/20/2024 11:30 AM HOSPITAL MANAGER Office Visit [facility] Family Medicine - [place] 100 [place] [phone] Abiodun Segura II, MD 100 [place] [address] documented as of this encounter Visit Diagnoses Not on filedocumented in this encounter Additional Health Concerns Assessment Noted Time PHQ-9 Depression Total Score: 0 03/08/19 9:30 AM HOSPITAL MANAGER documented as of this encounter Care Teams Elocution Teacher Relationship Specialty Start Date End Date Abiodun Segura II, MD [address] [place] [address] PCP - General FAMILY PRACTICE 03/09/21 documented as of this encounter
--- OUTSIDE RECORDS SUMMARY | 2024-03-02 22:29 | XMS_ITS | Encounter Summary ---
Author Organization [facility] Address [address] [place] [address]. [place] [address] [place] [address] Care Team Providers Care Puncher Name Role Phone Colton SILVEIRA MD, Yasmin Rushing Primary Care Provider Reason for Referral * Imaging (Emergency) - Closed Specialty Diagnoses / Procedures Referred By Lyla chaney Referred To Contact RADIOLOGY Procedures CT ABD+PEL W IV CON ONLY June Caputo NP Phone: tel: fax: Referral ID Status Reason Start Date Expiration Date Visits Re quested Visits Authorized [id number] Closed 04/15/2021 05/13/2022 1 1 DOMETER INSPECTOR Reason for Visit * Reason Comments Abdominal Pain * Auth/Cert Specialty Diagnoses / Procedures Referred By Lyla chaney Referred To Contact Diagnoses Abdominal pain Renal stones Perceived constipation Bilateral renal stones Renal stones Procedures NONE Referral ID Status Reason Start Date Expiration Date Visits Re quested Visits Authorized [id number] 1 1 Encounter Details Date Type Department Care Team (Late st Contact Info) Description 04/15/2021 5:00 PM SPEEDOMETER INSPECTOR - 04/16/2021 2:00 PM SPEEDOMETER INSPECTOR Emergency [facility] [place] [address] Christ Coombs MD [address] [facility] [place] [address] [place] [address] [phone] (Work) Major Edmond MD [address] [place], [place] [phone] (Work) Abdominal Pain Discharge Disposition: Home or [...] suspected to have Coronavirus/COVID-19? No / Unsure 04/15/2021 11:21 PM SPEEDOMETER INSPECTOR documented as of this encounter Last Filed Vital Signs Vital Sign Reading Time Taken Comments Blood Pressure 150/85 04/16/2021 5:01 AM SPEEDOMETER INSPECTOR Pulse 99 04/15/2021 4:25 PM SPEEDOMETER INSPECTOR Temperature 36.1 ??C (96.9 ??F) 04/16/2021 5:01 AM CS T Respiratory Rate 20 04/16/2021 5:01 AM SPEEDOMETER INSPECTOR Oxygen Saturation 96% 04/16/2021 5:01 AM SPEEDOMETER INSPECTOR Inhaled Oxygen Concentration - - Weight 85.7 kg (189 lb) 04/15/2021 4:29 PM SPEEDOMETER INSPECTOR Height 167.6 cm (5' 6 ) 04/15/2021 4:29 PM SPEEDOMETER INSPECTOR Body Mass Index 30.51 04/15/2021 4:29 PM SPEEDOMETER INSPECTOR documented in this encounter Functional Status * Question Answer Date of Assessment Author Status Do you have serious difficulty walking or climbing stairs? No 04/15/2021 11:33 PM Erica Pappas RN A ctive * Question Answer Date of Assessment Author Status Do you have difficulty dressing or bathing? No 04/15/2021 11:33 PM Erica Pappas RN Active Because of a physical, mental, or emotional condition, do you have difficulty doing errands alone such as visiting a doctor's office or shopping? No 04/15/2021 11:33 PM Erica Pappas RN Ac tive * RETIRED Are you deaf or do you have serious difficulty hearing Answer Date of Assessment Author Status No 04/15/2021 11:33 PM SPEEDOMETER INSPECTOR Acti ve * RETIRED Are you blind or do you have serious difficulty seeing, even when wearing glasses? Answer Date of Assessment Author Status No 04/15/2021 11:33 PM SPEEDOMETER INSPECTOR Acti ve * Do you have serious [...] difficulty concentrating, remembering, or making decisions? No 04/15/2021 11:33 PM Erica Pappas RN Active * Because of a physical, mental, or emotional condition, do you have serious difficulty concentrating, remembering, or making decisions? Answer Entry Date Author Status No 04/15/2021 11:33 PM Erica Pappas RN Active documented in this encounter Discharge Summaries * Major Edmond MD - 04/16/2021 2:00 PM CST Images from the original note were not included. Hospitalist Discharge Summary Patient ID: Lena Youngblood. female. 1970. Admit date: 04/15/2021 5:00 PM Discharge date: 04/16/2021 2:00 PM Admitting Physician: Noam Godoy MD Primary Care Physician: YASMIN SEGURA MD Discharge Physician: MAJOR EDMOND MD Primary Diagnoses: Abdominal pain Kidney stone Admission Condition: fair Discharged Condition: Stable Code Status: Full Code Chief Complaint: Chief Complaint Patient presents with ??? Abdominal Pain Reason for hospitalization: as above HPI per admitting physician: Lena Youngblood is a 51-year-old female With past medical history significant for diabetes, charcot foot, hypertension, hypercholesteremia, and diabetic neuropathy ?? The pt presented to ER after experiencing abdominal pain, nausea and vomiting. ?? Upon my assessment, pt is a/O x 3. She states she was instructed to come her by her PCP as they were concerned for possible infection or obstruction. ?? She states she had longstanding adversity with constipation. She reports episodes of constipation lasting longer than 1 week without a BM. Pt states she utilizes OTC laxatives and enemas; and even has to have digital disimpaction. She began having abdominal pain, nausea and vomiting since approximately 04/05/21. She attributed her symptoms to the constipation. However her pain persisted even aftera successful BM. Denies diarrhea, melena, hemtochezia and hematemesis. ?? She reports poor oral intake secondary to her symptoms. She states she was not passing gas and was experiencing foul smelling belches. ?? Pt also reports recent UTI. She was placed on oral Ciprofloxacin. She finished the course of antibiotics 3 days ago. She has been urinating without difficulty; Denies dysuria, hematuria and kidney stones. No chills, rigors, or febrile events. ?? Pt denies CP, diaphoresis, palpitations, sob, presyncopal or syncopal episiodes. ?? Denies headaches, visual disturbances, dizziness, focal weakness, numbness/tingling, increased confusion and gait abnormality. Hospital Course: Urology consulted. Upon further review of CT, findings found to be chronic and not etiology of abd pain. Patient with constipation but no other acute findings to explain pain. Discussed bowel regimenat length and its role in reducing UTIs. Kidney stone Urology consulted. Recs appreciated Only on right, non-obstructing per Urology Initial findings thought to be left stone was determined to be calcification on gonadal vein, as noted on previous imaging. Follow-up chronic right kidney changes with outpatient HTN Continue home regimen CKD2 Recent HEMA. 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 Weight loss discussed Specific follow-up testing/results for PCP: BP, BMP Discharge Exam: Filed Vitals: 04/15/21 1629 04/15/21 2026 04/15/21 2200 04/16/21 0501 BP: 126/77 117/68 (!) 150/85 Pulse: Resp: 20 Temp: 96.9 ??F (36.1 ??C) TempSrc: Temporal SpO2: 98% 100% 96% Weight: 85.7 kg (189 lb) Height: 5' 6 (1.676 m) -GENERAL: No acute distress, Well nourished -HEAD: Normocephalic, Atraumatic -EYES: Extraocular movements intact -LUNGS: Effort normal. Clear to auscultation bilaterally, No wheezes, No crackles, No ronchi -CVS: Regular rate and rhythm, S1 and S2 normal -ABDOMEN: Soft, Non tender, Non distended -NEURO: Awake, alert, oriented, No gross neuro deficits -SKIN: No significant rashes Consults: urology Significant Diagnostic Studies: Recent Labs Lab 04/15/21 1720 04/16/21 0644 WBC 9.4 7.3 RBC 4.05* 3.79* HGB 12.3 11.6* HCT 37.2* 35.0* MCV 91.9 92.3 MCH 30.4 30.6 MCHC 33.1 33.1 PLT 288 265 RDW 12.4 12.5 MPV 11.2 11.5 PERNEU 61.3 52.0 PERLYM 31.3 40.9 PERMON 5.3 5.0 LYMC 2.95 3.00 MONOC 0.50 0.37 EOSC 0.11 0.11 BASOC 0.06 0.04 DTYPE AUTOMATED DIFFERENTIAL AUTOMATED DIFFERENTIAL Recent Labs Lab 04/13/21 1023 04/15/21 1720 04/15/21 2030 04/16/21 0644 NA 133* 135* 135* 136 K 4.5 5.2* 4.7 4.3 CL 101 103 104 105 CO2 25.6 25.4 24.4 25.7 AGAP 6.4 6.6 6.6 5.3 BUN 32* 21* 18 18 CR 1.84* 1.23* 1.05* 1.22* BUNCREATININ 17.4 17.1 17.1 14.8 GFRNON 31* 51* 62* 52* GFR 36* 59* 72* 60* GLU 157* 203* 164* 194* CA 9.2 9.9 9.1 9.0 TP 8.9* 9.3* -- 7.9 ALB 3.5 3.7 -- 3.1* TBIL 0.5 0.5 -- 0.3 ALKP 133 141* -- 122 AST 20 23 -- 19 ALT 28 28 -- 25 No results for input(s): CHOL, TRI, HDL, LDL, HGBA1C, TSH in the last 168 hours. No results for input(s): APTT, INR, PTT in the last 168 hours. No results for input(s): TROP, TROPIWB, CKMB, CPK in the last 168 hours. Recent Labs Lab 04/15/21 1720 LACTICACID 1.4 No results for input(s): PH, PCO2, PO2, [id number], BICARBWB, BASEDEFICIT, BASEEXCESS in the ggsp248 hours. Results for orders placed or performed during the hospital encounter of 08/11/19 URINALYSIS, AUTO, COMPLETE Result Value Ref Range Specimen Type URINE CLEAN CATCH COLOR (U) LIGHT YELLOW TRANSPARENCY CLEAR Specific [place] (U) 1.024 1.001 - 1.030 U PH [...] SQUAMOUS EPITHELIALS RARE /HPF Radiology Reports : CT ABD+PEL W IV CON ONLY Result Date: 04/15/2021 PROCEDURE: CT ABD+PEL W CON HISTORY: Acute abdominal pain. TECHNIQUE: Helical CT of the abdomen andpelvis was performed using non-ionic intravenous contrast (Isovue 370, 100 mL). No oral contrast was administered. A dose lowering technique was used for this procedure, which may include, but is notlimited to, dose reduction technique, automated exposure control, the use of iterative reconstruction, and ALARA (As Low As Reasonably Achievable) / Image Gently techniques. COMPARISON: CT abdomen pelvis with contrast, 11/18/2020. FINDINGS CT ABDOMEN/PELVIS: Lower thorax: There is subsegmental atelectasis in the lower lobes. The heart is normal in size. Liver: The liver is normal in size. There is no intrahepatic mass. Biliary tree: The gallbladder is present. There is no biliary ductal dilatation. Spleen: Calcifications are seen in the spleen consistent with old granulomatous disease. Pancreas: Unremarkable. Adrenal glands: Unremarkable. Kidneys: There is no left hydronephrosis. There is chronic diffuse calyceal dilation of the right kidney, which can be seen with chronic pyelonephritis/xanthogranulomatous pyelonephritis. Bilateral obstructing renal stones are present measuring up to 9 mm Lymph nodes: Abdomen: There is no abdominal adenopathy. Pelvis: There is no pelvic adenopathy. Vasculature: The aorta is normal caliber. Peritoneum/mesentery/omentum: There is no free fluid or freeair. GI tract: There is no bowel obstruction. The appendix is normal. There is no abnormal bowel wall thickening to suggest acute inflammation. Pelvic urogenital structures:The bladder is grossly unremarkable. The uterus is not seen. There is no adnexal mass. Body wall: There are degenerative changes in the spine. No aggressive osseous lesions are identified. [place]: (S/I) = series number / image number IMPRESSION: 1. No acute abnormality is seen within the abdomen or pelvis. 2. Stable chronic diffusecalyceal dilation of the right kidney, which can be seen with chronic pyelonephritis/xanthogranulomatous pyelonephritis. 3. Bilateral obstructing renal stones measuring up to 9 mm. Ordered By: JUNE CAPUTO Interpreted By: Mercy Irving MD, 04/15/2021 7:28 PM XR CHEST PORTABLE Result Date: 04/15/2021 EXAMINATION: CHEST X-RAY ONE VIEW EXAM TIME: 2219 hours COMPARISON: 12/13/2019. HISTORY: Preprocedural screening. FINDINGS: A single portable AP view of the chest is submitted for evaluation. The heart is within normal limits in size. Pulmonary vascularity is within normal limits. The lungs are well expanded without focal airspace consolidation. No pleural effusions. No pneumothorax. IMPRESSION: No acute cardiopulmonary process. Referred By: Interpreted By: Cem Caballero MD, 04/15/2021 10:33 PM Discharge Medications: Medication List START taking these medications Morning Afternoon Evening Bedtime As Needed Senna 8.6 MG tablet Commonly known as: SENOKOT Take 2 tablets (17.2 mg total) by mouth 2 (two) times a day. CONTINUE taking these medications Morning Afternoon Evening Bedtime As Needed amLODIPine 10 MG tablet Commonly known as: NORVASC Take 1 tablet (10 mg total) by mouth daily. cyclobenzaprine 10 MG tablet Commonly known as: FLEXERIL Take 1 tablet (10 mg total) by mouth 3 (three) times daily as needed for Muscle Spasms. HumaLOG Mix 75/25 (75-25) 100 UNIT/ML Susp Take 55 units in AM and 50 units PM, this should be titrated depending on your blood sugar numbers. Generic drug: insulin lispro protamine-insulin lispro lisinopril 40 MG tablet Commonly known as: PRINIVIL Take 40 mg by mouth nightly. nitroglycerin 0.4 MG SL tablet Commonly known as: NITROSTAT Place 0.4 mg under the tongue every 5 (five) minutes as needed. FOR CHEST PAIN DO NOT EXCEED A TOTAL OF 3 DOSES IN 15 MINUTES ondansetron 4 MG disintegrating tablet Commonly known as: ZOFRAN-ODT Take 1 tablet (4 mg total) by mouth every 8 (eight) hours as needed for Nausea. Last time this was given: Ask your nurse or doctor Pill Splitter Misc 1 Device by Does not apply route daily. polyethylene glycol 17 GM/SCOOP powder Commonly known as: GLYCOLAX Take 17 g by mouth daily. Dissolve powder in 240 mL water ReliOn Insulin Syringe 31G X 15/64 1 ML Misc USE 1 SYRINGE SUBCUTANEOUSLY TWICE DAILY Generic drug: Insulin Syringe-Needle U-100 simvastatin 40 MG tablet Commonly known as: ZOCOR Take 40 mg by mouth nightly at bedtime. Trulicity 3 MG/0.5ML Sopn Inject 3 mg into the skin weekly. Generic drug: Dulaglutide STOP taking these medications hydroCHLOROthiazide 25 MG tablet Commonly known as: HYDRODIURIL meloxicam 15 MG tablet Commonly known as: MOBIC spironolactone 25 MG tablet Commonly known as: ALDACTONE Disposition: Home with self care Patient Instructions: Follow-up appointments: PCPGLORIA Time Spent on Discharge: greater than 30 minutes Portions of this note were dictated with [employer] medical dictation software. Misspellings, punctuation errors, omitted words or dictation variances may occur. Signed: MAJOR EDMOND MD DOMETER INSPECTOR documented in this encounter Discharge Instructions * Discharge Instructions* Major Edmond MD - 04/16/2021 11:45 AM SPEEDOMETER INSPECTOR Images from the original note were not included. Patient Education Constipation Discharge Instructions, Adult About this topic Constipation is the medical term for when your bowel movements are too hard, too small, or don???t happen often enough. It can also be hard to have a bowel movement. Most of the time, you can treat your constipation at home. What care is needed at home? ?? Ask your doctor what you need to do when you go home. Make sure you ask questions if you do not understand what the doctor says. This way you will know what you need to do. ?? Eat high-fiber foods. These include whole grains, fruits, and vegetables. ?? Drink plenty of water and other fluids each day. This helps to keep your bowel movements soft. ?? Set a regular schedule to try and have a bowel movement. Do not ignore the urge to have a bowel movement. ?? Give yourself plenty of time to have a bowel movement. ?? Be active. Walk, garden, or do something active for 30 minutes or more on most days of the week. ?? Sitting in a warm bath can help you relax and feel like you can have a bowel movement. ?? Talk to your regular doctor before you use laxatives or enemas regularly. What follow-up care is needed? Your doctor may ask you to make visits to the office to check on your progress. Be sure to keep these visits. What drugs may be needed? The doctor may order drugs to: ?? Help you move your bowels ?? Soften stools, like mineral oils ?? Add bulk to the stool, like fiber supplements Will physical activity be limited? Your physical activities will not be limited in most cases. Try to stay physically active. This mayhelp you move your bowels more regularly. What problems could happen? ?? Rectal bleeding ?? Hemorrhoids ?? Tears around the skin of the anus ?? Hard stool may pack the large bowels very tightly. If this happens, the normal pushing action ofthe bowels is not enough to remove the stool. This is called fecal impaction. When do I need to call the doctor? Seek care right away or go to the ER if: ?? You have sudden severe belly pain or the pain is constant. ?? Your belly becomes very hard or swollen. ?? You start throwing up blood. ?? You pass a lot of blood in your bowel movements. ?? Your bowel movements are black or tar-colored. ?? You throw up a lot and can???t keep liquids down. ?? You have a fever of 102.2??F (39??C) or higher. Call your doctor if: ?? You have a fever of 100.4??F (38??C) or higher or chills. ?? Your bowel movements have a small amount (less than 1 teaspoon or 5 mL) of blood in them. ?? You feel that something is not right in your belly. ?? You have hemorrhoids. ?? You have hard bowel movements for more than 2 weeks with belly pain. Teach Back: Helping You Understand The Teach Back Method helps you understand the information we are giving you. After you talk with the staff, tell them in your own words what you learned. This helps to make sure the staff has described each thing clearly. It also helps to explain things that may have been confusing. Before going home, make sure you can do these: ?? I can tell you about my condition. ?? I can tell you what changes I need to make with my diet or drugs. ?? I can tell you what I will do if I have lots of rectal bleeding or very bad belly pain with hardstools and a fever. Where can I learn more? Academy of Nutrition and Dietetics https://www.eatright.org/food/ahqikkdy-jnk-rsfelgvtfpm/xtdhbnrs-kbmc-ipmoe/fiber Academy of Nutrition and Dietetics https://www.eatright.org/food/xoxgzoyg-ins-glkmyoneave/rgmnk-cl-vgsfijzj-and-nut rients/wcmy-hcbz-gt-bzznu-cqiev-ea-ylkk-nubqf-plvy FamilyDoctor.org http://familydoctor.org/familydoctor/en/diseases-conditions/constipation.html National Digestive Diseases Information Clearinghouse https://www.niddk.nih.gov/health-information/digestive-diseases/constipation/def inition-facts Last Reviewed Date 2020-07-26 Consumer Information Use and Disclaimer This generalized information is a limited summary of diagnosis, treatment, and/or medication information. It is not meant to be comprehensive and should be used as a tool to help the user understand and/or assess potential diagnostic and treatment options. It does NOT include all information about conditions, treatments, medications, side effects, or risks that may apply to a specific patient. Itis not intended to be medical advice or a substitute for the medical advice, diagnosis, or treatment of a health care provider based on the health care provider's examination and assessment of a patient???s specific and unique circumstances. Patients must speak with a health care provider for complete information about their health, medical questions, and treatment options, including any risks orbenefits regarding use of medications. This information does not endorse any treatments or medications as safe, effective, or approved for treating a specific patient. [employer]. and its affiliates disclaim any warranty or liability relating to this information or the use thereof. The use of this information is governed by the Terms of Use, available at https://www.[employer].com/en/solutions/lexicomp/about/moreno Copyright Copyright ?? 2020 [employer]. and its affiliates and/or licensors. All rights reserved. DOMETER INSPECTOR documented in this encounter Medications at Time [...] with long-term current use of insulin ([facility]) Inject 3 mg into the skin weekly. 12 pen 3 2 01/07/20 22 HUMALOG MIX 75/25 (75-25) 100 UNIT/ML Suspension Take 55 units in AM and 50 units PM, this should be titrated depending on your blood sugar numbers. 1 vial 1 7 05/17/19 22 lisinopril 40 MG tablet Take 40 [...] with long-term current use of insulin ([facility]) USE 1 SYRINGE SUBCUTANEOUSLY TWICE DAILY 100 each 5 1 01/02/20 Senna 8.6 MG tablet Take 2 tablets (17.2 mg total) by mouth 2 (two) times a day. 120 tablet 2 05/05/19 simvastatin 40 MG tablet Take 40 mg by mouth nightly at bedtime. 7 07/12/19 documented as of this encounter Progress Notes * Cindy Jefferson [facility] - 04/16/2021 1:42 PM CST Risk stratification per VTE protocol Risk stratified to Moderate Pharm contra added - pending procedure SCDs already ordered by provider DOMETER INSPECTOR * Mirta Valles RN - 04/16/2021 12:51 PM CST Patient to discharge home with spouse this date. Patient family to transport her home. No further CM needs noted. Case closed. 04/16/21 1251 Discharge Planning Living Arrangements Spouse/Significant other Support Systems Spouse/Significant other;Family Members;Friends/Neighbors Type of Residence Private residence Assistance/Services Needed No IV Infusion at discharge No Patient expects to be discharged to: Home DME Needed at Discharge No DOMETER INSPECTOR documented in this encounter H&P Notes * Wanda Langston APRN - 04/15/2021 9:36 PM CST Hospitalist History and Physical Patient: Lena Youngblood Date: 04/15/2021 female, 51-year-old Admit Date: 04/15/2021 Attending: Noam Godoy MD REASON FOR ADMISSION: Obstructing HISTORY OF PRESENT ILLNESS: Lena Youngblood is a 51-year-old female With past medical history significant for diabetes, charcot foot, hypertension, hypercholesteremia, and diabetic neuropathy The pt presented to ER after experiencing abdominal pain, nausea and vomiting. Upon my assessment, pt is a/O x 3. She states she was instructed to come her by her PCP as they were concerned for possible infection or obstruction. She states she had longstanding adversity with constipation. She reports episodes of constipation lasting longer than 1 week without a BM. Pt states she utilizes OTC laxatives and enemas; and even has to have digital disimpaction. She began having abdominal pain, nausea and vomiting since approximately 04/05/21. She attributed her symptoms to the constipation. However her pain persisted even aftera successful BM. Denies diarrhea, melena, hemtochezia and hematemesis. She reports poor oral intake secondary to her symptoms. She states she was not passing gas and was experiencing foul smelling belches. Pt also reports recent UTI. She was placed on oral Ciprofloxacin. She finished the course of antibiotics 3 days ago. She has been urinating without difficulty; Denies dysuria, hematuria and kidney stones. No chills, rigors, or febrile events. Pt denies CP, diaphoresis, palpitations, sob, presyncopal or syncopal episiodes. Denies headaches, visual disturbances, dizziness, focal weakness, numbness/tingling, increased confusion and gait abnormality. Imagine completed in ER revealed Bilateral obstructing renal stones measuring up to 9 mm. The pt will be admitted to Observation for further evaluation and treatment. Urology has been consulted. Allergy Allergies Allergen Reactions ??? Amoxicillin Rash ??? Penicillins Rash Medication list Prior to Admission medications Medication Sig Start Date End Date Taking? Authorizing Provider amLODIPine 10 MG tablet Take 1 tablet (10 mg total) by mouth daily. 09/24/20 Yasmin Segura II, MD cyclobenzaprine 10 MG tablet Take 1 tablet (10 mg total) by mouth 3 (three) times daily as needed for Muscle Spasms. 03/21/21 05/20/21 Yasmin Segura II, MD Dulaglutide (TRULICITY) 3 MG/0.5ML Solution Pen-injector Inject 3 mg into the skin weekly. 03/21/21 Yasmin Segura II, MD HUMALOG MIX 75/25 (75-25) 100 UNIT/ML Suspension Take 55 units in AM and 50 units PM, this should be titrated depending on your blood sugar numbers. Patient taking differently: Inject 55-65 Units into the skin see administration instructions. Take 65 units in AM and 55 units PM, this should be titrated depending on your blood sugar numbers. 02/08/17 Imani Soria MD HYDROCHLOROTHIAZIDE 25 MG tablet Take 1 tablet by mouth once daily Patient taking differently: Take 25 mg by mouth every morning. 12/06/20 Jarred Rod MD lisinopril 40 MG tablet Take 40 mg by mouth nightly. 11/03/16 Doc Abstract meloxicam 15 MG tablet Take 1 tablet (15 mg total) by mouth daily. 12/14/20 Shira Shi PA-C Misc. Devices (PILL SPLITTER) Misc 1 Device [...] route as needed. 12/06/20 Jarred Rod MD simvastatin 40 MG tablet Take 40 mg by mouth nightly at bedtime. 11/03/16 Doc Abstract spironolactone 25 MG tablet Take 0.5 tablets (12.5 mg total) by mouth daily. 10/08/20 Yasmin Segura II, MD Past Medical History [...] Father ??? Stroke Sister ??? Hypertension Sister REVIEW OF SYSTEMS: A 14 point review of systems was taken and pertinent positive as per HPI PHYSICAL EXAMINATION: Vital 24 Hour Range Most Recent Value Temperature Temp Min: 97.5 ??F (36.4 ??C) Max: 97.5 ??F (36.4 ??C) 97.5 ??F (36.4 ??C) Pulse Pulse Min: 99 Max: 99 99 Respiratory Resp Min: 16 Max: 16 16 Blood Pressure BP Min: 126/77 Max: 143/90 126/77 Pulse Oximetry SpO2 Min: 98 % Max: 98 % 98 % O2 No data recorded Vital Most Recent Value First Value Weight 85.7 kg (189 lb) Weight: 85.7 kg (189 lb) Height 5' 6 (167.6 cm) Height: 5' 6 (167.6 cm) BMI 30.51 N/A Physical Exam: -GENERAL: No acute distress, breathing comfortably on room air. Obese -EYES: Extraocular movements intact -ENT: Neck supple, -LUNG: Clear to auscultation bilaterally, No wheezes, No crackles -CVS: Regular rate rhythm, S1 and S2 normal, No murmurs, -ABDOMEN: Soft, nondistended, Nontender, Bowel sounds observed -EXT: no lower Ext edema. -NEURO: Alert, awake, oriented x3, No gross neuro deficit -SKIN: Skin color, texture, turgor normal. No rashes or lesions Intake/Output last 3 shifts: No intake/output data recorded. Labs: Recent Labs Lab 04/13/21 1023 04/15/21 1720 04/15/21 2030 NA 133* 135* 135* K 4.5 5.2* 4.7 CL 101 103 104 CO2 25.6 25.4 24.4 AGAP 6.4 6.6 6.6 BUN 32* 21* 18 CR 1.84* 1.23* 1.05* BUNCREATININ 17.4 17.1 17.1 GFRNON 31* 51* 62* GFR 36* 59* 72* GLU 157* 203* 164* CA 9.2 9.9 9.1 Recent Labs Lab 04/15/21 1720 WBC 9.4 RBC 4.05* HGB 12.3 HCT 37.2* MCV 91.9 MCH 30.4 MCHC 33.1 PLT 288 RDW 12.4 MPV 11.2 Recent Labs Lab 04/13/21 1023 04/15/21 1720 AST 20 23 ALT 28 28 No results for input(s): INR, PTT in the last 168 hours. Invalid input(s): ABG arterial blood gases No results for input(s): TROP, TROPIWB, CPK in the last 168 hours. Invalid input(s): CK-MB No results for input(s): PH, PCO2, PO2, O7EVLFQWSPED, BICARBWB, BASEDEFICIT, BASEEXCESS in the dgon511 hours. Imagining & Other Studies EKG-04/15/[address] [place] Test Date: 2021-04-15 Pat Name: LENA YOUNGBLOOD Department: Room: [id number] Gender: Female Director Of Psychology: JUSTIN : 1970 Requested By: WANDA LANGSTON Order Number: [id number] Reading MD: Measurements Intervals Kamiah Rate: 92 P: 38 OK: 174 QRS: 11 QRSD: 89 T: 22 QT: 349 QTc: 434 Interpretive Statements SINUS RHYTHM MINIMAL VOLTAGE CRITERIA FOR LVH, CONSIDER NORMAL VARIANT [MEETS CRITERIA IN ONE OF: R(aVL), S(V1), R(V5), R(V5/V6)+S(V1)] NONSPECIFIC T-WAVE ABNORMALITY Compared to ECG 12/13/2019 05:09:11 Sinus tachycardia no longer present T-wave abnormality still present CHEST X-RAY ONE VIEW-04/15/21 EXAM TIME: 2219 hours COMPARISON: 12/13/2019. HISTORY: Preprocedural screening. FINDINGS: A single portable AP view of the chest is submitted for evaluation. The heart is within normal limits in size. Pulmonary vascularity is within normal limits. The lungs are well expanded without focalairspace consolidation. No pleural effusions. No pneumothorax. IMPRESSION: No acute cardiopulmonary process. Referred By: Interpreted By: eCm Caballero MD, 04/15/2021 10:33 PM PROCEDURE: CT ABD+PEL W CON HISTORY: Acute abdominal pain. TECHNIQUE: Helical CT of the abdomen and pelvis was performed using non-ionic intravenous contrast (Isovue 370, 100 mL). No oral contrast was administered. A dose lowering technique was used for this procedure, which may include, but is not limited to, dose reduction technique, automated exposure control, the use of iterative reconstruction, and ALARA (As Low As Reasonably Achievable) / Image Gently techniques. COMPARISON: CT abdomen pelvis with contrast, 11/18/2020. FINDINGS CT ABDOMEN/PELVIS: Lower thorax: There is subsegmental atelectasis in the lower lobes. The heart is normal in size. Liver: The liver is normal in size. There is no intrahepatic mass. Biliary tree: The gallbladder is present. There is no biliary ductal dilatation. Spleen: Calcifications are seen in the spleen consistent with old granulomatous disease. Pancreas: Unremarkable. Adrenal glands: Unremarkable. Kidneys: There is no left hydronephrosis. There is chronic diffuse calyceal dilation of the right kidney, which can be seen with chronic pyelonephritis/xanthogranulomatous pyelonephritis. Bilateral obstructing renal stones are present measuring up to 9 mm Lymph nodes: Abdomen: There is no abdominal adenopathy. Pelvis: There is no pelvic adenopathy. Vasculature: The aorta is normal caliber. Peritoneum/mesentery/omentum: There is no free fluid or free air. GI tract: There is no bowel obstruction. The appendix is normal. There is no abnormal bowel wall thickening to suggest acute inflammation. Pelvic urogenital structures:The bladder is grossly unremarkable. The uterus is not seen. There is no adnexal mass. Body wall: There are degenerative changes in the spine. No aggressive osseous lesions are identified. [place]: (S/I) = series number / image number ?? IMPRESSION: 1. No acute abnormality is seen within the abdomen or pelvis. 2. 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 3. Bilateral obstructing renal stones measuring up to 9 mm. Ordered By: JUNE CAPUTO Interpreted By: Mercy Irving MD, 04/15/2021 7:28 PM Assessment & Plan Bilateral obstructing renal stones CT Abd/Pelvis revealed: Bilateral obstructing renal stones measuring up to 9 mm. Medical Floor Urology consulted NPO after midinght Supportive Care: IV fluids, antiemetic Pain management-monitor for toxicity Hypertension Hold KELLIE and HCTZ to preserve renal function prior to procedure tomorrow; resume tomorrow night if renal function and BP will allow Continue Norvasc Monitor BP and titrate meds to maintain target goal Diabetes Hold home scheduled insulin until after procedure tomorrow; then restart if taking po well accu checks achs-s/s protocol A1c=8.9 on 02/23/21 Dyslipidemia Continue statin Advanced Care planning I spent greater than 16 minutes with the pt discussing the medical plan of care; as well as her advanced directives. POA: Pt does not have a medical POA. Her medical point of contact is her daughter Pt states, in the event of a cardiac or respiratory arrest; she would like providers TO ATTEMPT CPR, ACLS, and intubation/mechanical ventilation should it be necessary VTE: SCDs Cosigned by Noam Godoy MD at 04/16/2021 12:32 AM SPEEDOMETER INSPECTOR DOMETER INSPECTOR DOMETER INSPECTOR Associated attestation - Noam Godoy MD - 04/16/2021 12:32 AM SPEEDOMETER INSPECTOR Patient seen and examined. MANAGER FOOD note reviewed. This is a 51-year-old female presenting with abdominalpain found to have bilateral obstructive kidney stones. General: Alert. Appears to be in mild pain discomfort CV: Regular rate and rhythm Pulmonary: Clear to auscultation. Nonlabored on room air Abdomen: Positive bowel sounds, soft, nontender distended. Not tender to light palpation Extremities: No significant edema Agree with plan as outlined above. Continue IV fluids. N.p.o. Urology consultation appreciated. I, NOAM GODOY MD, performed a History and Physical examination of the patient and discussed the management with the Advanced Practice Provider (KIAN). I reviewed the KIAN's note and agree with the findings and plan of care, except as I have documented. documented in this encounter Consult Notes * Douglas Paniagua MD - 04/16/2021 10:18 AM CSTAssociated Order(s): IP CONSULT TO UROLOGY Images from the original note were not included. Urologic Surgery Inpatient Consult Note Encounter Date: 04/16/2021 Patient Name: Lena Youngblood Requesting Provider: Dr. Coombs - Emergncy department Reason for Consultation: Abdominal pain Possible obstructing nephrolithiasis Chronic right hydronephrosis. History of Present Illness: Ms. Youngblood is a 51-year-old female With history of kidney stones, right chronic hydronephrosis status post prior pyeloplasty x2, Previous renal scan 06/2019 Demonstrating T1 half greater than 10 minutes on the right, but symmetric split functioncurrently admitted for Abdominal pain who I was asked to see in consultation By the emergency department for recommendations regarding CT findings. Patientpresented to the emergency department last night 04/15/2021 with complaint of several weeks of bilateral right worse than left upper quadrant pain, constipation, nausea, belching with fetid odor. Shereports no recent dysuria, urgency, colicky flank pain, symptoms consistent with prior UTIs. No hematuria, and no cloudy urine. No feelings of incomplete bladder emptying. Her urine volume has been normal. In the emergency department a CT abdomen pelvis was performed That demonstrated no acute abnormality, chronic dilation of the right kidney. This CT was read as raising concern for bilateral obstructing renal stones measuring up to 9 mm. I personally reviewed this scan. The patient has no hydronephrosis in the left kidney. She has a calcification in the retroperitoneum that appears to be within her gonadal vein, and not within the ureter. This has been present for several years going back through old CT scans available in the system. On the right side she has a lower pole calyceal stone that is about 9 mm in size, this does not appear to be an obstructing stone in her hydronephrosis which ischronic appears stable. I do not appreciate any ureteral stones on this side. She has been previously managed by Dr. Lucero, She has had chronic dilation of the right kidney, recurrent UTIs. She has previously had nephrostomy tubes and stents placed. She did not tolerate thesevery well. Her hydronephrosis has been stable and thus has been observed. She does get recurrent urinary tract infections, is on postcoital prophylaxis. Past Medical History: Diagnosis Date ??? Arthritis [...] Partner Violence: Not on file Family History Problem Relation Name Age of Onset ??? Diabetes Mother ??? Hypertension Mother ??? Heart Attack Father ??? Hypertension Father ??? Stroke Sister ??? Hypertension Sister She denies a family history of malignancy. She denies a family history of nephrolithiasis. Medications: MEDICATIONS FOR CURRENT ENCOUNTER: ?? SCHEDULED MEDICATIONS: ??? amLODIPine 10 mg Oral nightly ??? atorvastatin 20 mg Oral Nightly at bedtime ??? insulin lispro 0-14 Units Subcutaneous Q6H ??? lisinopril 40 mg Oral nightly ??? morphine 4 mg Intravenous Once ??? senna-docusate 1 tablet Oral BID ??? tamsulosin 0.4 mg Oral Daily ?? CONTINUOUS MEDICATIONS: ??? sodium chloride 100 mL/hr at 04/16/21 0837 ?? PRN MEDICATIONS: bisacodyl, cyclobenzaprine, dextrose, dextrose 10 % bolus, glucagon, morphine, naLOXone, ondansetron, polyethylene glycol Allergies: Allergies Allergen Reactions ??? Amoxicillin Rash ??? Penicillins Rash Review of Systems: A complete 10-point review of systems was reviewed with the patient. Pertinent positives and negatives are in the History of Present Illness and Past Medical History. All other systems are unremarkable. Vitals Filed Vitals: 04/15/21 1629 04/15/216 04/15/21 2200 04/16/21 0501 BP: 126/77 117/68 (!) 150/85 Pulse: Resp: 20 Temp: 96.9 ??F (36.1 ??C) TempSrc: Temporal SpO2: 98% 100% 96% Weight: 85.7 kg (189 lb) Height: 5' 6 (1.676 m) Height: 5' 6 (167.6 cm) Weight: 85.7 kg (189 lb) Intake / Output: Intake/Output Summary (Last 24 hours) at 04/16/2021 1019 Last data filed at 04/16/2021 0837 Gross per 24 hour Intake 1800 ml Output 400 ml Net 1400 ml Physical Examination: General: Patient is alert and oriented in no acute distress. Head: Normocephalic, atraumatic. Nares are symmetric without nasal flaring or respiratory distress.No lip cyanosis. Eyes: Sclera anicteric. Cardiovascular: Peripheral perfusion appears adequate. No digital clubbing or cyanosis present. Chest: Non-labored respirations. Comfortable respiratory effort without recruitment of accessory respiratory muscles. Abdominal: Abdomen soft, nontender, nondistended. Mild RUQ and right flank tenderness, No palpable masses. Gu: mild right flank ttp Musculoskeletal: Normal station and posture. Moves all extremities symmetrically. Neurological: No focal neurologic deficit. Psychiatric: Appropriate affect and mood. Skin: Normal coloration and turgor. Hematological/Immunological: No bleeding gums or jaundice. Lymphatic: No femoral or inguinal palpable lymphadenopathy. Laboratory: Recent Labs Lab 04/15/21 17204/16/21 0644 WBC 9.4 7.3 HGB 12.3 11.6* HCT 37.2* 35.0* Recent Labs Lab 04/13/21 1023 04/13/21 1023 04/15/21 1720 04/15/21 2030 04/16/21 0644 CO2 25.6 < > 25.4 24.4 25.7 ALT 28 -- 28 -- 25 AST 20 -- 23 -- 19 < > = values in this interval not displayed. No results for input(s): APTT, INR, PTT in the last 168 hours. No results found for: PSA Invalid input(s): COLORU, CLARITYU, SPECGRAVU, PHURINE, PROTURQL, GLUCOSEUR, KETONESU, BILIRUBINU, BLOODUR, UROBILINOGUR, NITRITEU, LEUKESTUR Microbiology: Microbiology Results (last 14 days) Procedure Component Value Units Date/Time CULTURE URINE [[id number]] Collected: 04/15/211719 Order Status: Completed Lab Status: In process Updated: 04/15/211808 Microbiology Results (last 14 days) Procedure Component Value Units Date/Time CULTURE URINE [[id number]] Collected: 04/15/211719 Order Status: Completed Lab Status: In process Updated: 04/15/211808 Imaging: Radiology Results (Last 30 days) 04/15/21 2230 XR CHEST PORTABLE Final result Impression: IMPRESSION: No acute cardiopulmonary process. Referred By: Interpreted By: Cem Caballero MD, 04/15/2021 10:33 PM 04/15/[address] ABD+PEL W IV CON ONLY Final result Impression: IMPRESSION: 1. No acute abnormality is seen within the abdomen or pelvis. 2. 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 3. Bilateral obstructing renal stones measuring up to 9 mm. Ordered By: JUNE CAPUTO Interpreted By: Mercy Irving MD, 04/15/2021 7:28 PM I have personally reviewed available radiographic images, and if available, the radiology report(s). I have discussed the results of the clinical lab tests and radiographic images with the patient. Assessment: 1. Right hydronephrosis 2. Non-obstructing right lower pole stones 3. Abdominal hernández Recommendations: 1. on my review of the patient's imaging, she does not have evidence of bilateral obstructing stones. She has a chronically dilated right kidney status post 2 failed pyeloplasties That appears stableIn terms of degree of dilation. Shehas a right lower pole stone that is nonobstructing. I do not appreciate obstructing stones on the left, she has a calcification in the retroperitoneum that appearsto be outside of the lumen Of her urinary tract and likely within her gonadal vein. Further, if thepatient had bilateral urinary obstruction, I would expect her to be anuric and have substantial creatinine elevation and currently her creatinine is affectively at her baseline. 2. Symptomatology appears more consistent with chronic constipation and GI issues then acute urinary problem, thus would defer workup of these issues to primary service 3. Patient does not appear to have UTI on urinalysis 4. Patient should have outpatient follow-up, has previously seen Dr. Lucero In our [place] office and if she would like to continue to follow with him she can, or if she would prefer follow-up here in [place], she can follow up in our office here contact info as below -------- Douglas Paniagua M.D. Urology of [address] [address] [address] DOMETER INSPECTOR documented in this encounter ED Notes * Christ Coombs MD - 04/15/2021 9:30 PM CST Chief Complaint Chief Complaint Patient presents with ??? Abdominal Pain History of Present Illness The patient is a very pleasant 51-year-old female examined in the emergency department in bed #12. He presents today reportedly at the direction of her primary care physician. She was seen there for abdominal pain and distention. She believes that she has a bowel obstruction because she takes 2 hours to defecate and this requires her pushing on her suprapubic abdomen in order to void. The patient has had some nausea and vomiting today (which is new). The patient called her primary physiciansri this morning. The telephone encounter note reads She has been taking pills that go under tongue for nausea, tums, mylanta. Says that she has a foul smelling belch - causing dry heaving or vomiting started past 24/48 hours- constant pain in stomach above belly button has had it since apr 04, not able to pass gas, Small bowel movement this morning, lots of straining-last one was a week ago. . She was sent in as there was a concern that these symptoms may represent a bowel obstruction. Thus, she presents now for evaluation. Onset is as described above. No clear palliative or provokingfactors are identified. Quality is as described above. There is no radiation. Severity is moderate.Time course constant and seeming to worsen. Medical History ALLERGIES: Allergies Allergen Reactions ??? [...] times daily as needed for Muscle Spasms. 03/21/21 05/20/21 Yes Ysamin Segura II, MD Dulaglutide (TRULICITY) 3 MG/0.5ML Solution Pen-injector Inject 3 mg into the skin weekly. Patient taking differently: Inject 3 mg into the skin weekly. 03/21/21 Yes Yasmin Segura II, MD HUMALOG MIX 75/25 (75-25) 100 UNIT/ML Suspension Take 55 units in AM and 50 units PM, this should be titrated depending on your blood sugar numbers. Patient taking differently: Inject 55-65 Units into the skin see administration instructions. Take 65 units in AM and 55 units PM, this should be titrated depending on your blood sugar numbers. 02/08/17 Yes Imani Soria MD HYDROCHLOROTHIAZIDE 25 MG tablet Take 1 tablet by mouth once daily Patient taking differently: Take 25 mg by mouth nightly. 12/06/20 Yes Jarred Rod MD lisinopril 40 MG tablet Take 40 mg by mouth nightly. 11/03/16 Yes Doc Abstract ondansetron 4 MG disintegrating tablet Take 1 tablet (4 mg total) by mouth every 8 (eight) hours asneeded for Nausea. 04/12/21 Yes Yasmin Segura II, MD simvastatin 40 MG tablet Take 40 mg by mouth nightly at bedtime. 11/03/16 Yes Doc Abstract meloxicam 15 MG tablet Take 1 tablet (15 mg total) by mouth daily. Patient not taking: Reported on 04/15/2021 12/14/20 Shira Shi PA-C Misc. Devices (PILL SPLITTER) Misc 1 Device by Does not apply route daily. 10/08/20 Yasmin Segura II, MD nitroglycerin 0.[address] 0.4 mg under the tongue every 5 (five) minutes as needed. FOR CHEST PAIN DO NOT EXCEED A TOTAL OF 3 DOSES IN 15 MINUTES 07/07/20 Doc Abstract RELION INSULIN SYRINGE 31G X 15/64 1 ML Misc USE 1 SYRINGE SUBCUTANEOUSLY TWICE DAILY Patient taking differently: 1 Syringe by Other route as needed. 12/06/20 Jarred Rod MD spironolactone 25 MG tablet Take 0.5 tablets (12.5 mg total) by mouth daily. Patient not taking: Reported on 04/15/2021 10/08/20 Yasmin Segura II, MD PAST MEDICAL HISTORY: [...] Father ??? Stroke Sister ??? Hypertension Sister SOCIAL HISTORY: Social History Tobacco Use ??? Smoking status: Never Smoker ??? Smokeless tobacco: Never Used Vaping Use ??? Vaping Use: Never used Substance Use Topics ??? Alcohol use: No ??? Drug use: No Review of Systems Review of Systems REVIEW OF SYSTEMS: The patient denies fevers, chills, or sweats. Complains of nausea, and vomiting,denies diarrhea, complains of constipation, and abdominal pain. Denies chest pain, shortness of breath, dyspnea on exertion, or palpitations. Denies headache, loss of consciousness, or seizures. Denies dysuria or hematuria. Ten systems reviewed and negative except as described above or in the HPI. Physical Exam Vital 24 Hour Range Most Recent Value Temperature Temp Min: 97.5 ??F (36.4 ??C) Max: 97.5 ??F (36.4 ??C) 97.5 ??F (36.4 ??C) Pulse Pulse Min: 99 Max: 99 99 Respiratory Resp Min: 16 Max: 16 16 Blood Pressure BP Min: 117/68 Max: 143/90 117/68 Pulse Oximetry SpO2 Min: 98 % Max: 100 % 100 % O2 No data recorded Vital Most Recent Value First Value Weight 85.7 kg (189 lb) Weight: 85.7 kg (189 lb) Height 5' 6 (167.6 cm) Height: 5' 6 (167.6 cm) BMI 30.51 N/A Physical Exam VITALS: Reviewed. The patient does not meet SIRS criteria GENERAL: The patient is a very pleasant 51-year-old female examined in the Emergency Department. Patient is in no acute distress at the time of my exam. HEENT: Normocephalic, atraumatic. Pupils are PERRL. Eyes focus and track. Sclerae are nonicteric and not injected. The face is symmetric, round, and fully expressive. Hearing is adequate to conversational voice. Ears are without discharge. Nares are grossly patent, and also without discharge. Mucous membranes are moist. NECK: No JVD, tracheal deviation, or subcutaneous emphysema is noted. CHEST: The thoracic cage is stable to palpation and nontender. LUNGS: Clear to auscultation bilaterally without wheezes, rales or rhonchi. Equal inspiratory and expiratory phases. HEART: Normal rate, regular rhythm. Normal S1 and S2. ABDOMEN: Soft, nontender (the patient complains of epigastric abdominal pain, however, there is no focal tenderness to exam), and nondistended. No rebound, guarding, or rigidity is noted. No masses, bruits or hepatosplenomegaly are noted. No CVA tenderness is noted to either flank. However, the patient does say that she has had right sided flank pain for a while . EXTREMITIES: No clubbing, cyanosis, edema, or evidence of trauma is noted. NEURO: No gross focal neuro deficits are appreciated. GCS = 15. No seizure activity is noted in theemergency department. PSYCHIATRIC: The patient's mood, affect and interaction are appropriate to setting. SKIN: Normal color, temperature, and turgor noted throughout. Diagnostic Studies / Procedures ELECTROCARDIOGRAMS: No results found for this visit on 04/15/21. LABORATORY STUDIES: Results for orders placed or performed during the hospital encounter of 04/15/21 CBC W/DIFF AUTOMATED Result Value Ref Range WBC 9.4 4.5 - 11.0 x10'3/uL RBC 4.05 (L) 4.20 - 5.40 x10'6/uL HGB 12.3 12.0 - 16.0 G/DL HCT 37.2 (L) 38.0 - 48.0 % MCV 91.9 81.0 - 99.0 FL MCH 30.4 27.0 - 31.0 PG MCHC 33.1 32.0 - 36.0 G/DL RDW 12.4 11.5 - 14.5 % PLT 288 130 - 400 x10'3/uL MPV 11.2 9.3 - 12.2 FL DIFFERENTIAL TYPE AUTOMATED DIFFERENTIAL NEUTROPHILS 61.3 % LYMPHOCYTES 31.3 % MONOCYTES 5.3 % EOSINOPHILS 1.2 % BASOPHILS 0.6 % IMMATURE GRANS 0.3 % ABS. NEUTROPHILS TOTAL 5.78 1.80 - 7.70 x10'3/uL ABS. LYMPHOCYTES 2.95 1.00 - 4.80 x10'3/uL ABS. MONOCYTES 0.50 0.24 - 0.86 x10'3/uL ABS. EOSINOPHILS 0.11 0.04 - 0.36 x10'3/uL ABS. BASOPHILS 0.06 0.01 - 0.08 x10'3/uL ABS. IMMATURE GRANULOCYTES 0.03 0.00 - 0.49 x10'3/uL COMPREHENSIVE METABOLIC PANEL Result Value Ref Range GLUCOSE 203 (H) 70 - 99 MG/DL BUN 21 (H) 7 - 18 MG/DL CREATININE S/P/B 1.23 (H) 0.55 - 1.02 MG/DL SODIUM 135 (L) 136 - 145 MMOL/L POTASSIUM 5.2 (H) 3.5 - 5.1 MMOL/L CHLORIDE S/P/B 103 100 - 108 MMOL/L CO2 25.4 21 - 32 MMOL/L CALCIUM 9.9 8.5 - 10.1 MG/DL BILIRUBIN TOTAL S/P/B 0.5 0.2 - 1.2 MG/DL TOTAL PROTEIN S/P/B 9.3 (H) 6.4 - 8.2 G/DL ALBUMIN S/P/B 3.7 3.4 - 5.0 G/DL AST 23 15 - 37 U/L ALT 28 14 - 55 U/L ALKALINE PHOSPHATASE S/P/B 141 (H) 50 - 136 U/L ANION GAP 6.6 5 - 15 MMOL/L BUN CREATININE RATIO 17.1 6 - 26 A/G RATIO 0.7 (L) 1.0 - 2.0 RATIO eGFR Non-Afr. Amer. 51 (L) >90 ML/MIN/1.73 M2 eGFR Afr. Amer. 59 (L) >90 ML/MIN/1.73 M2 LIPASE Result Value Ref Range LIPASE 153 73 - 393 UNITS/L LACTIC ACID Result Value Ref Range LACTIC ACID 1.4 0.4 - 2.0 MMOL/L URINALYSIS Result Value Ref Range Specimen Type URINE CLEAN CATCH COLOR (U) LIGHT YELLOW TRANSPARENCY CLEAR Specific [place] (U) 1.012 1.001 - 1.030 U PH 6.5 5.0 - 9.0 LEUKOCYTE ESTERASE NEGATIVE NEGATIVE [...] (A) NONE /HPF SQUAMOUS EPITHELIALS RARE /HPF BASIC METABOLIC PANEL Result Value Ref Range GLUCOSE 164 (H) 70 - 99 MG/DL BUN 18 7 - 18 MG/DL CREATININE S/P/B 1.05 (H) 0.55 - 1.02 MG/DL SODIUM 135 (L) 136 - 145 MMOL/L POTASSIUM 4.7 3.5 - 5.1 MMOL/L CHLORIDE S/P/B 104 100 - 108 MMOL/L CO2 24.4 21 - 32 MMOL/L CALCIUM 9.1 8.5 - 10.1 MG/DL ANION GAP 6.6 5 - 15 MMOL/L BUN CREATININE RATIO 17.1 6 - 26 eGFR Non-Afr. Amer. 62 (L) >90 ML/MIN/1.73 M2 eGFR Afr. Amer. 72 (L) >90 ML/MIN/1.73 M2 IMAGING STUDIES: CT ABD+PEL W IV CON ONLY Final Result by User, [id number] (04/15 1936) PROCEDURE: CT ABD+PEL W CON HISTORY: Acute abdominal pain. TECHNIQUE: Helical CT of the abdomen and pelvis was performed using non-ionic intravenous contrast (Isovue 370, 100 mL). No oral contrast was administered. A dose lowering technique was used for this procedure, which may include, but is not limited to, dose reduction technique, automated exposure control, the use of iterative reconstruction, and ALARA (As Low As Reasonably Achievable) / Image Gently techniques. COMPARISON: CT abdomen pelvis with contrast, 11/18/2020. FINDINGS CT ABDOMEN/PELVIS: Lower thorax: There is subsegmental atelectasis in the lower lobes. The heart is normal in size. Liver: The liver is normal in size. There is no intrahepatic mass. Biliary tree: The gallbladder is present. There is no biliary ductal dilatation. Spleen: Calcifications are seen in the spleen consistent with old granulomatous disease. Pancreas: Unremarkable. Adrenal glands: Unremarkable. Kidneys: There is no left hydronephrosis. There is chronic diffuse calyceal dilation of the right kidney, which can be seen with chronic pyelonephritis/xanthogranulomatous pyelonephritis. Bilateral obstructing renal stones are present measuring up to 9 mm Lymph nodes: Abdomen: There is no abdominal adenopathy. Pelvis: There is no pelvic adenopathy. Vasculature: The aorta is normal caliber. Peritoneum/mesentery/omentum: There is no free fluid or free air. GI tract: There is no bowel obstruction. The appendix is normal. There is no abnormal bowel wall thickening to suggest acute inflammation. Pelvic urogenital structures:The bladder is grossly unremarkable. The uterus is not seen. There is no adnexal mass. Body wall: There are degenerative changes in the spine. No aggressive osseous lesions are identified. [place]uns[place]: (S/I) = series number / image number IMPRESSION: 1. No acute abnormality is seen within the abdomen or pelvis. 2. 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 3. Bilateral obstructing renal stones measuring up to 9 mm. Ordered By: JUNE CAPUTO Interpreted By: Mercy Irving MD, 04/15/2021 7:28 PM XR CHEST PORTABLE (Results Pending) [employer]-based [employer] Payment System (MIPS) Quality Measure/Emergency Medicine Qualified Clinical Data Registry (E-CPR) Data: Not applicable ED Course / Medical Decision Making Admit ABDOMINAL PAIN Consultation with hospitalist (Dr. Godoy) service. We thoroughly discussed the history, physical exam, laboratory and imaging studies, as well as, emergency department course. Based upon that discussion, we've decided to admit for further observation and evaluation of their abdominal pain. As I have deemed necessary from their history, physical and studies, I have considered and evaluated for the following diagnoses: ACUTE APPENDICITIS, BOWEL OBSTRUCTION, CHOLECYSTITIS, DIVERTICULITIS, INCARCERATED HERNIA, MESENTERIC ISCHEMIA, PANCREATITIS, or PERFORATED BOWEL or ULCER. I spoke with the on-call urologist (Dr. Pena) who requested that the patient be placed in observation status and held n.p.o. after midnight for consideration of surgical intervention tomorrow. I spent appreciate all of his, and Dr. Godoy's, assistance in the care and management of the patient. The patient was evaluated for sepsis in the emergency department, and after diagnostic work-up, no sepsis was found. No sepsis, severe sepsis, or septic shock is noted in the emergency department. Clinical Impression Bilateral renal stones (Primary) Abdominal pain Perceived constipation Disposition: Admit I dictated portions of this note using Yandex speech recognition software. Occasional wrong word or sound-alike substitutions may have occurred due to the inherent limitations of voice recognition software. Please read the chart carefully and recognize, using context, where the substitutions may have occurred. If there are any questions, please contact me via Doc Halo or other HIPAA compliant communication medium for clarification. Christ Coombs MD 04/15/212211 DOMETER INSPECTOR * June Caputo NP - 04/15/2021 4:46 PM CST [place], [place] EMERGENCY DEPARTMENT ENCOUNTER Medical Screening Examination 04/15/21 4:46 PM Chief Complaint : Abdominal Pain HPI : Lena Youngblood is a 51-year-old female who presents received call from PCP office regarding abd pain, distension. Vomiting and possible bowel obstruction at noon today. Here for same. Vital Signs: Filed Vitals: 04/15/21 1625 04/15/21 1629 BP: (!) 143/90 Pulse: 99 Resp: 16 Temp: 97.5 ??F (36.4 ??C) TempSrc: Temporal SpO2: 98% Weight: 85.7 kg (189 lb) Height: 5' 6 (1.676 m) 5' 6 (1.676 m) Physical exam: A brief physical exam was completed to facilitate/expedite patient care. [place]unsford findings include: alert, abs soft. Plan: Labs & Imaging was ordered to facilitate patient care., Analgesics were ordered to faciliate patient care. and Antiemetics were ordered to faciliate patient care. June Caputo NP 04/15/21 1647 Cosigned by Kvng Lewis MD at 04/15/2021 8:42 PM SPEEDOMETER INSPECTOR DOMETER INSPECTOR DOMETER INSPECTOR * Diana Allen RN - 04/15/2021 4:31 PM CST Patient c/o of ABD pain, n/v bloating and constipation. The symptoms started on 04/05 DOMETER INSPECTOR documented in this encounter Plan of Treatment Upcoming Encounters Date Type Department Care Team (Late st Contact Info) Description 03/14/2024 11:45 AM SPEEDOMETER INSPECTOR Office Visit [facility] [phone] Marvin Mckeon MD [address] [facility] [address] [place], [place] [id number] 03/20/2024 11:30 AM SPEEDOMETER INSPECTOR Office Visit [facility] Family [facility] - [place] [address] [place] [phone] Yasmin Segura II, MD [address] [place], [place] [phone] documented as of this encounter Procedures Procedure Name Priority Date/Time Associated Diagnosis Comments POCT GLUCOSE - CORREA DOCKED DEVICE Routine 04/16/2021 12:10 PM SPEEDOMETER INSPECTOR COMPREHENSIVE METABOLIC PANEL Routine 04/16/2021 6:44 AM SPEEDOMETER INSPECTOR CBC W/DIFF AUTOMATED Routine 04/16/2021 6:44 AM SPEEDOMETER INSPECTOR POCT GLUCOSE - CORREA DOCKED DEVICE Routine 04/16/2021 6:19 AM SPEEDOMETER INSPECTOR ECG 12-LEAD Routine 04/15/2021 10:40 PM SPEEDOMETER INSPECTOR XR CHEST PORTABLE STAT 04/15/2021 10: 30 PM SPEEDOMETER INSPECTOR BASIC METABOLIC PANEL STAT 04/15/2021 8:[address] ABD+PEL W CON STAT 04/15/2021 6:57 PM SPEEDOMETER INSPECTOR HC URINALYSIS AUTO W/O MICRO STAT 04/15/2021 5:21 PM SPEEDOMETER INSPECTOR URINE BACTERIA CULTURE Routine 5:20 PM SPEEDOMETER INSPECTOR COMPREHENSIVE METABOLIC PANEL STAT 04/15/2021 5:20 PM SPEEDOMETER INSPECTOR LACTIC ACID TIMED 04/15/2021 5:20 PM SPEEDOMETER INSPECTOR CBC W/DIFF AUTOMATED STAT 04/15/2021 5:20 PM SPEEDOMETER INSPECTOR LIPASE STAT 04/15/2021 5:20 PM SPEEDOMETER INSPECTOR documented in this encounter Results * (ABNORMAL) POCT glucose (04/16/2021 12:10 PM SPEEDOMETER INSPECTOR) GLUCOSE POC 155(H) 70 - 99 mg/dL 04/16/2021 12:13 PM SPEEDOMETER INSPECTOR [facility] 04/16/2021 12:1 0 PM SPEEDOMETER INSPECTOR Major Edmond MD POCT ORDERABLES - YSABEL CE Final Result [facility] [address] [place] [id number], * (ABNORMAL) COMPREHENSIVE METABOLIC PANEL (04/16/2021 6:44 AM SPEEDOMETER INSPECTOR) GLUCOSE 194(H) 70 - 99 MG/DL 04/16/2021 7:35 AM SPEEDOMETER INSPECTOR [facility] BUN 18 7 - 18 MG/DL 04/16/2021 7:35 AM SPEEDOMETER INSPECTOR [facility] CREATININE S/P/B 1.22(H) 0.55 - 1.02 MG/DL 04/16/2021 7:35 AM SPEEDOMETER INSPECTOR [facility] SODIUM S/P/B 136 136 - 145 MMOL/L 04/16/2021 7:35 AM SPEEDOMETER INSPECTOR [facility] POTASSIUM S/P/B 4.3 3.5 - 5.1 MMOL/L 04/16/2021 7:35 AM [facility] CHLORIDE S/P/B 105 100 - 108 MMOL/L 04/16/2021 7:35 AM [facility] CO2 25.7 21 - 32 MMOL/L 04/16/2021 7:35 AM [facility] CALCIUM S/P/B 9.0 8.5 - 10.1 MG/DL 04/16/2021 7:35 AM [facility] BILIRUBIN TOTAL S/P/B 0.3 0.2 - 1.2 MG/DL 04/16/2021 7:35 AM [facility] Comment: THIS ASSAY IS NOT RECOMMENDED FOR PATIENTS UNDERGOING TREATMENT WITH ELTROMBOPAG DUE TO THE POTENTIAL FOR FALSELY ELEVATED RESULTS. TOTAL PROTEIN S/P/B 7.9 6.4 - 8.2 G/DL 04/16/2021 7:35 AM [facility] ALBUMIN S/P/B 3.1(L) 3.4 - 5.0 G/DL 04/16/2021 7:35 AM [facility] AST 19 15 - 37 U/L 04/16/2021 7:35 AM [facility] ALT 25 14 - 55 U/L 04/16/2021 7:35 AM [facility] ALKALINE PHOSPHATASE S/P/B 122 50 - 136 U/L 04/16/2021 7:35 AM [facility] ANION GAP 5.3 5 - 15 MMOL/L 04/16/2021 7:35 AM [facility] BUN CREATININE RATIO 14.8 - 04/16/2021 7:35 AM [facility] A/G RATIO 0.6(L) 1.0 - 2.0 RATIO 04/16/2021 7:35 AM SPEEDOMETER INSPECTOR [facility] EGFR NON-AFR. AMER. 52(L) >90 ML/MIN/1.7 3 M2 04/16/2021 7:35 AM [facility] EGFR AFR. AMER. 60(L) >90 ML/MIN/1.7 3 M2 04/16/2021 7:35 AM [facility] Comment: NOTE: eGFR is not calculated for patients <18 years of age. This is an estimated GFR (CKD EPI) and should not be used for calculating drug doses. 04/16/2021 6:44 AM SPEEDOMETER INSPECTOR Wanda Langston PHYSICAL BIOCHEMIST LABORATORY Final Resul t [facility] [address] [place] [address], * (ABNORMAL) CBC W/DIFF AUTOMATED (04/16/2021 6:44 AM SPEEDOMETER INSPECTOR) WBC 7.3 4.5 - 11.0 x10'3/uL 04/16/2021 7:10 AM [facility] RBC 3.79(L) 4.20 - 5.40 x10'6/uL 04/16/2021 7:10 AM [facility] HGB 11.6(L) 12.0 - 16.0 G/DL 04/16/2021 7:10 AM [facility] HCT 35.0(L) 38.0 - 48.0 % 04/16/2021 7:10 AM [facility] MCV 92.3 81.0 - 99.0 FL 04/16/2021 7:10 AM [facility] MCH 30.6 27.0 - 31.0 PG 04/16/2021 7:10 AM [facility] MCHC 33.1 32.0 - 36.0 G/DL 04/16/2021 7:10 AM [facility] RDW 12.5 11.5 - 14.5 % 04/16/2021 7:10 AM [facility] PLT 265 130 - 400 x10'3/uL 04/16/2021 7:10 AM [facility] MPV 11.5 9.3 - 12.2 FL 04/16/2021 7:10 AM [facility] DIFFERENTIAL TYPE AUTOMATED DIFFERENTIAL 04/16/2021 7:10 AM [facility] NEUTROPHILS % 52.0 % 04/16/2021 7:10 AM [facility] LYMPHOCYTES % 40.9 % 04/16/2021 7:10 AM [facility] MONOCYTES % 5.0 % 04/16/2021 7:10 AM [facility] EOSINOPHILS 1.5 % 04/16/2021 7:10 AM [facility] BASOPHILS 0.5 % 04/16/2021 7:10 AM [facility] IMMATURE GRANS % 0.1 % 04/16/19 7:10 AM [facility] ABS. NEUTROPHILS TOTAL 3.81 1.80 - 7.70 x10'3/uL 04/16/2021 7:10 AM [facility] ABS. LYMPHOCYTES 3.00 1.00 - 4.80 x10'3/uL 04/16/2021 7:10 AM [facility] ABS. MONOCYTES 0.37 0.24 - 0.86 x10'3/uL 04/16/2021 7:10 AM [facility] ABS. EOSINOPHILS 0.11 0.04 - 0.36 x10'3/uL 04/16/2021 7:10 AM SPEEDOMETER INSPECTOR [facility] ABS. BASOPHILS 0.04 0.01 - 0.08 x10'3/uL 04/16/2021 7:10 AM SPEEDOMETER INSPECTOR [facility] ABS. IMMATURE GRANULOCYTES 0.01 0.00 - 0.49 x10'3/uL 04/16/2021 7:10 AM SPEEDOMETER INSPECTOR [facility] 04/16/2021 6:44 AM SPEEDOMETER INSPECTOR Wanda Langston PHYSICAL BIOCHEMIST LABORATORY Final Resul t Performing Organization Address City/[facility]/[place] [address], * (ABNORMAL) POCT glucose (04/16/2021 6:19 AM SPEEDOMETER INSPECTOR) [facility] GLUCOSE POC 197(H) 70 - 99 mg/dL 04/16/2021 6:23 AM SPEEDOMETER INSPECTOR [facility] 04/16/2021 6:19 AM SPEEDOMETER INSPECTOR Major Edmond MD POCT ORDERABLES - YSABEL CE Final Result Performing Organization Address [facility] Co de Phone Number [address] [address], * ECG 12 lead (04/15/2021 10:40 PM SPEEDOMETER INSPECTOR) 04/15/2021 10:4 0 PM SPEEDOMETER INSPECTOR Narrative [facility] - 04/17/2021 4:45 PM SPEEDOMETER INSPECTOR ?[facility] ? [address], [place] ? Test Date: ?2021-04-15 Pat Name: ? LENA YOUNGBLOOD ?Department: ? Room: ? C09 Gender: ? Female ? Director Of Psychology: ?? EV : ?1970 ? Requested By: CRYSTAL BROWN Order Number: [id number] ? Reading MD: ?? Reynaldo Scally ? Measurements Intervals ?Kamiah ? Rate: ? 92 ? P: ?38 OK: ? 174 ?QRS: ?11 QRSD: ? 89 ? T: ?22 QT: ? 349 ? QTc: ?434 ? Interpretive Statements SINUS RHYTHM NONSPECIFIC T-WAVE ABNORMALITY Compared to ECG 12/13/2019 05:09:11 Sinus tachycardia no longer present T-wave abnormality still present Other ischemic changes, not STEMI Christ Coombs M.D. CRITICAL ALERT ISSUED ON 04-15-2021 23:46:05 DOMETER INSPECTOR Procedure Note Reynaldo Leonardo MD - 04/17/[address] [facility] [address] Test Date: 2021-04-15 Pat Name: LENA YOUNGBLOOD Department: Room: [facility] Gender: Female Director Of Psychology: JUSTIN : 1970 Requested By: WANDA LANGSTON Order Number: [id number] Reading MD: Reynaldo Leonardo Measurements Intervals Kamiah Rate: 92 P: 38 OK: 174 QRS: 11 QRSD: 89 T: 22 QT: 349 QTc: 434 Interpretive Statements SINUS RHYTHM NONSPECIFIC T-WAVE ABNORMALITY Compared to ECG 12/13/2019 05:09:11 Sinus tachycardia no longer present T-wave abnormality still present Other ischemic changes, not STEMI Christ Coombs M.D. CRITICAL ALERT ISSUED ON 04-15-2021 23:46:05 DOMETER INSPECTOR us Wanda Langston PHYSICAL BIOCHEMIST ECG ORDERABLES Final Resul t [facility] RAD * XR CHEST PORTABLE (04/15/2021 10:30 PM SPEEDOMETER INSPECTOR) Anatomical Region Laterality Modality Chest Radiographic Shelli ging 04/15/2021 10:3 3 PM SPEEDOMETER INSPECTOR Impressions 04/15/2021 10:33 PM SPEEDOMETER INSPECTOR IMPRESSION: No acute cardiopulmonary process. Referred By: ?? Interpreted By: Cem Caballero MD, 04/15/2021 10:33 PM Narrative 04/15/2021 10:33 PM SPEEDOMETER INSPECTOR EXAMINATION: CHEST X-RAY ONE VIEW EXAM TIME: 2219 hours COMPARISON: 12/13/2019. HISTORY: Preprocedural screening. FINDINGS: A single portable AP view of the chest is submitted for evaluation. The heart is within normal limits in size. Pulmonary vascularity is within normal limits. The lungs are well expanded without focal airspace consolidation. No pleural effusions. No pneumothorax. Procedure Note Neel Caballero MD - 04/15/2021 EXAMINATION: CHEST X-RAY ONE VIEW EXAM TIME: 2219 hours COMPARISON: 12/13/2019. HISTORY: Preprocedural screening. FINDINGS: A single portable AP view of the chest is submitted for evaluation. Theheart is within normal limits in size. Pulmonary vascularity is withinnormal limits. The lungs are well expanded without focal airspaceconsolidation. No pleural effusions. No pneumothorax. IMPRESSION: No acute cardiopulmonary process. Referred By: Interpreted By: Cem Caballero MD, 04/15/2021 10:33 PM Wanda Ronnie Brown PHYSICAL BIOCHEMIST GENERAL IMAGING Final Resul t * (ABNORMAL) BASIC METABOLIC PANEL (04/15/2021 8:30 PM SPEEDOMETER INSPECTOR) GLUCOSE 164(H) 70 - 99 MG/DL 04/15/2021 9:14 PM SPEEDOMETER INSPECTOR [facility] BUN 18 7 - 18 MG/DL 04/15/2021 9:14 PM SPEEDOMETER INSPECTOR [facility] CREATININE S/P/B 1.05(H) 0.55 - 1.02 MG/DL 04/15/2021 9:14 PM SPEEDOMETER INSPECTOR [facility] SODIUM S/P/B 135(L) 136 - 145 MMOL/L 04/15/2021 9:14 PM SPEEDOMETER INSPECTOR [facility] POTASSIUM S/P/B 4.7 3.5 - 5.1 MMOL/L 04/15/2021 9:14 PM [facility] CHLORIDE S/P/B 104 100 - 108 MMOL/L 04/15/2021 9:14 PM SPEEDOMETER INSPECTOR [facility] CO2 24.4 21 - 32 MMOL/L 04/15/2021 9:14 PM [facility] CALCIUM S/P/B 9.1 8.5 - 10.1 MG/DL 04/15/2021 9:14 PM SPEEDOMETER INSPECTOR [facility] ANION GAP 6.6 5 - 15 MMOL/L 04/15/2021 9:14 PM [facility] BUN CREATININE RATIO 17.1 6 - 26 04/15/2021 9:14 PM [facility] EGFR NON-AFR. AMER. 62(L) >90 ML/MIN/1.7 3 M2 04/15/2021 9:14 PM [facility] EGFR AFR. AMER. 72(L) >90 ML/MIN/1.7 3 M2 04/15/2021 9:14 PM [facility] Comment: NOTE: eGFR is not calculated for patients <18 years of age. This is an estimated GFR (CKD EPI) and should not be used for calculating drug doses. 04/15/2021 8:30 PM SPEEDOMETER INSPECTOR us Christ Coombs MD LABORATORY Final Result [facility] [address] [place] [address], [place] [phone] * CT ABD+PEL W IV CON ONLY (04/15/2021 6:57 PM SPEEDOMETER INSPECTOR) Anatomical Region Laterality Modality Abdomen Computed Tomogra phy 04/15/2021 7:28 PM SPEEDOMETER INSPECTOR Impressions 04/15/2021 7:36 PM SPEEDOMETER INSPECTOR IMPRESSION: ?? 1. ??No acute abnormality is seen within the abdomen or pelvis. 2. ?? 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 3. ??Bilateral obstructing renal stones measuring up to 9 mm. Ordered By: JUNE CAPUTO Interpreted By: Mercy Irving MD, 04/15/2021 7:28 PM Narrative 04/15/2021 7:36 PM SPEEDOMETER INSPECTOR PROCEDURE: ??CT ABD+PEL W CON HISTORY: ??Acute abdominal pain. TECHNIQUE: ??Helical CT of the abdomen and pelvis was performed using non-ionic intravenous contrast (Isovue 370, 100 mL). No oral contrast was administered. A dose lowering technique was used for this procedure, which may include, but is not limited to, dose reduction technique, automated exposure control, the use of iterative reconstruction, and ALARA (As Low As Reasonably Achievable) / Image Gently techniques. COMPARISON: ??CT abdomen pelvis with contrast, 11/18/2020. FINDINGS CT ABDOMEN/PELVIS: Lower thorax: ??There is subsegmental atelectasis in the lower lobes. The heart is normal in size. Liver: The liver is normal in size. There is no intrahepatic mass. Biliary tree: The gallbladder is present. There is no biliary ductal dilatation. Spleen: Calcifications are seen in the spleen consistent with old granulomatous disease. Pancreas: ??Unremarkable. Adrenal glands: ??Unremarkable. Kidneys: There is no left hydronephrosis. There is chronic diffuse calyceal dilation of the right kidney, which can be seen with chronic pyelonephritis/xanthogranulomatous pyelonephritis. Bilateral obstructing renal stones are present measuring up to 9 mm Lymph nodes: Abdomen: There is no abdominal adenopathy. Pelvis: There is no pelvic adenopathy. Vasculature: ??The aorta is normal caliber. Peritoneum/mesentery/omentum: ??There is no free fluid or free air. GI tract: ??There is no bowel obstruction. The appendix is normal. There is no abnormal bowel wall thickening to suggest acute inflammation. Pelvic urogenital structures:The bladder is grossly unremarkable. ??The uterus is not seen. There is no adnexal mass. Body wall: ??There are degenerative changes in the spine. No aggressive osseous lesions are identified. [place]: (S/I) = series number / image number Procedure Note Mercy Irving MD - 04/15/2021 PROCEDURE: CT ABD+PEL W CON HISTORY: Acute abdominal pain. TECHNIQUE: Helical CT of the abdomen and pelvis was performed usingnon-ionic intravenous contrast (Isovue 370, 100 mL). No oral contrast wasadministered. A dose lowering technique was used for this procedure, which may include,but is not limited to, dose reduction technique, automated exposurecontrol, the use of iterative reconstruction, and ALARA (As Low AsReasonably Achievable) / Image Gently techniques. COMPARISON: CT abdomen pelvis with contrast, 11/18/2020. FINDINGS CT ABDOMEN/PELVIS: Lower thorax: There is subsegmental atelectasis in the lower lobes. Theheart is normal in size. Liver: The liver is normal in size. There is no intrahepatic mass. Biliary tree: The gallbladder is present. There is no biliary ductaldilatation. Spleen: Calcifications are seen in the spleen consistent with oldgranulomatous disease. Pancreas: Unremarkable. Adrenal glands: Unremarkable. Kidneys: There is no left hydronephrosis. There is chronic diffusecalyceal dilation of the right kidney, which can be seen with chronicpyelonephritis/xanthogranulomatous pyelonephritis. Bilateral obstructingrenal stones are present measuring up to 9 mm Lymph nodes: Abdomen: There is no abdominal adenopathy. Pelvis: There is no pelvic adenopathy. Vasculature: The aorta is normal caliber. Peritoneum/mesentery/omentum: There is no free fluid or free air. GI tract: There is no bowel obstruction. The appendix is normal. There isno abnormal bowel wall thickening to suggest acute inflammation. Pelvic urogenital structures:The bladder is grossly unremarkable. Theuterus is not seen. There is no adnexal mass. Body wall: There are degenerative changes in the spine. No aggressiveosseous lesions are identified. [place]: (S/I) = series number / image number IMPRESSION: 1. No acute abnormality is seen within the abdomen or pelvis. 2. Stable chronic diffuse calyceal dilation of the right kidney, whichcan be seen with chronic pyelonephritis/xanthogranulomatouspyelonephritis. 3. Bilateral obstructing renal stones measuring up to 9 mm. Ordered By: JUNE CAPUTO Interpreted By: Mercy Irving MD, 04/15/2021 7:28 PM us June Caputo MANAGER FOOD CT Final Result * (ABNORMAL) URINALYSIS (04/15/2021 5:21 PM SPEEDOMETER INSPECTOR) SPECIMEN TYPE URINE CLEAN CATCH 04/15/2021 5:22 PM SPEEDOMETER INSPECTOR [facility] COLOR (U) LIGHT YELLOW 04/15/2021 5:55 PM [facility] TRANSPARENCY CLEAR 04/15/2021 5:55 PM [facility] SPECIFIC GRAVITY (U) 1.012 1.001 - 1.030 04/15/2021 5:55 PM [facility] U PH 6.5 5.0 - 9.0 04/15/2021 5:55 PM [facility] LEUKOCYTES (U) NEGATIVE NEGATIVE 04/15/2021 5:55 PM [facility] NITRITES NEGATIVE NEGATIVE 04/15/2021 5:55 PM [facility] PROTEIN (U) 30(H) <30 MG/DL 04/15/2021 5:55 PM [facility] URINE GLUCOSE NORMAL NORMAL MG/DL 04/15/2021 5:55 PM [facility] KETONES MG/DL (U) NEGATIVE NEGATIVE MG/DL 04/15/2021 5:55 PM SPEEDOMETER INSPECTOR [facility] UROBILINOGEN NORMAL NORMAL MG/DL 04/15/2021 5:55 PM SPEEDOMETER INSPECTOR [facility] BILIRUBIN (U) NEGATIVE NEGATIVE MG/DL 04/15/2021 5:55 PM SPEEDOMETER INSPECTOR [facility] BLOOD (U) NEGATIVE NEGATIVE 04/15/2021 5:55 PM SPEEDOMETER INSPECTOR [facility] CULTURE & SENSITIVITY INDICATED? CULTURE IS NOT INDICATED 04/15/2021 5:55 PM SPEEDOMETER INSPECTOR [facility] MUCUS RARE /LPF 04/15/2021 5:55 PM SPEEDOMETER INSPECTOR [facility] WBC/HPF 1 <6 /HPF 04/15/2021 5:55 PM SPEEDOMETER INSPECTOR [facility] RBC/HPF 1 <6 /HPF 04/15/2021 5:55 PM SPEEDOMETER INSPECTOR [facility] BACTERIA (U) RARE(A) NONE /HPF 04/15/2021 5:55 PM SPEEDOMETER INSPECTOR [facility] SQUAMOUS EPITHELIALS RARE /HPF 04/15/2021 5:55 PM SPEEDOMETER INSPECTOR [facility] URINE SPECIMEN OBTAINED BY CLEAN CATCH PROCEDURE / Unknown 04/15/2021 5:21 PM SPEEDOMETER INSPECTOR us June Caputo MANAGER FOOD URINE ORDERABLES Final Result [facility] [address] [place] [address], [place] [phone] * CULTURE URINE (04/15/2021 5:20 PM SPEEDOMETER INSPECTOR) SPEC DESCRIPTION URINE CLEAN CATCH 04/15/2021 6:09 PM SPEEDOMETER INSPECTOR [facility] SPECIAL REQUESTS NO SPECIAL REQUEST 04/15/2021 6:09 PM SPEEDOMETER INSPECTOR [facility] CULTURE RESULT NO GROWTH 2 DAYS 04/17/2021 7:59 AM SPEEDOMETER INSPECTOR [facility] URINE SPECIMEN OBTAINED BY CLEAN CATCH PROCEDURE / Unknown 04/15/2021 5:20 PM SPEEDOMETER INSPECTOR 04/15/2021 6:07 PM SPEEDOMETER INSPECTOR June Caputo MANAGER FOOD MICROBIOLOGY - GENERAL ORDERA BLES Final Result Performing Organization Address City/[facility]/ZIP Co de Phone Number [facility] [address] [place] [id number], [place] [phone] * LACTIC ACID (04/15/2021 5:20 PM SPEEDOMETER INSPECTOR) LACTIC ACID VENOUS 1.4 0.4 - 2.0 MMOL/L 04/15/2021 5:57 PM SPEEDOMETER INSPECTOR [facility] 04/15/2021 5:2 0 PM SPEEDOMETER INSPECTOR June Caputo NP LABORATORY Final Result Performing Organization Address City/[facility]/ZIP Co de Phone Number [facility] [address] [place] [address], [place] [phone] * LIPASE (04/15/2021 5:20 PM SPEEDOMETER INSPECTOR) LIPASE 153 73 - 393 UNITS/L 04/15/2021 6:41 PM SPEEDOMETER INSPECTOR [facility] 04/15/2021 5:20 PM SPEEDOMETER INSPECTOR June Caputo NP LABORATORY Final Result Performing Organization Address City/[facility]/ZIP Co de Phone Number [facility] [address] [place] [address], [place] [phone] * (ABNORMAL) COMPREHENSIVE METABOLIC PANEL (04/15/2021 5:20 PM SPEEDOMETER INSPECTOR) GLUCOSE 203(H) 70 - 99 MG/DL 04/15/2021 6:41 PM [facility] BUN 21(H) 7 - 18 MG/DL 04/15/2021 6:41 PM [facility] CREATININE S/P/B 1.23(H) 0.55 - 1.02 MG/DL 04/15/2021 6:41 PM [facility] SODIUM S/P/B 135(L) 136 - 145 MMOL/L 04/15/2021 6:41 PM [facility] POTASSIUM S/P/B 5.2(H) 3.5 - 5.1 MMOL/L 04/15/2021 6:41 PM [facility] Comment:SLIGHT HEMOLYSIS, RE SULT MAY BE AFFECTED. CHLORIDE S/P/B 103 100 - 108 MMOL/L 04/15/2021 6:41 PM [facility] CO2 25.4 21 - 32 MMOL/L 04/15/2021 6:41 PM [facility] CALCIUM S/P/B 9.9 8.5 - 10.1 MG/DL 04/15/2021 6:41 PM [facility] BILIRUBIN TOTAL S/P/B 0.5 0.2 - 1.2 MG/DL 04/15/2021 6:41 PM [facility] Comment: THIS ASSAY IS NOT RECOMMENDED FOR PATIENTS UNDERGOING TREATMENT WITH ELTROMBOPAG DUE TO THE POTENTIAL FOR FALSELY ELEVATED RESULTS. TOTAL PROTEIN S/P/B 9.3(H) 6.4 - 8.2 G/DL 04/15/2021 6:41 PM [facility] ALBUMIN S/P/B 3.7 3.4 - 5.0 G/DL 04/15/2021 6:41 PM [facility] AST 23 15 - 37 U/L 04/15/2021 6:41 PM [facility] Comment:SLIGHT HEMOLYSIS, RE SULT MAY BE AFFECTED. 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 AMER. 51(L) >90 ML/MIN/1.7 3 M2 04/15/2021 6:41 PM [facility] EGFR AFR. AMER. 59(L) >90 ML/MIN/1.7 3 M2 04/15/2021 6:41 PM [facility] Comment: NOTE: eGFR is not calculated for patients <18 years of age. This is an estimated GFR (CKD EPI) and should not be used for calculating drug doses. 04/15/2021 5:20 PM SPEEDOMETER INSPECTOR us June Caputo NP LABORATORY Final Result [facility] [address] [place] [address], [place] [phone] * (ABNORMAL) CBC W/DIFF AUTOMATED (04/15/2021 5:20 PM SPEEDOMETER INSPECTOR) WBC 9.4 4.5 - 11.0 x10'3/uL 04/15/2021 5:38 PM SPEEDOMETER INSPECTOR [facility] RBC 4.05(L) 4.20 - 5.40 x10'6/uL 04/15/2021 5:38 PM [facility] HGB 12.3 12.0 - 16.0 G/DL 04/15/2021 5:38 PM [facility] HCT 37.2(L) 38.0 - 48.0 % 04/15/2021 5:38 PM [facility] MCV 91.9 81.0 - 99.0 FL 04/15/2021 5:38 PM [facility] MCH 30.4 27.0 - 31.0 PG 04/15/2021 5:38 PM [facility] MCHC 33.1 32.0 - 36.0 G/DL 04/15/2021 5:38 PM [facility] RDW 12.4 11.5 - 14.5 % 04/15/2021 5:38 PM [facility] PLT 288 130 - 400 x10'3/uL 04/15/2021 5:38 PM [facility] MPV 11.2 9.3 - 12.2 FL 04/15/2021 5:38 PM [facility] DIFFERENTIAL TYPE AUTOMATED DIFFERENTIAL 04/15/2021 5:38 PM [facility] NEUTROPHILS % 61.3 % 04/15/2021 5:38 PM [facility] LYMPHOCYTES % 31.3 % 04/15/2021 5:38 PM [facility] MONOCYTES % 5.3 % 04/15/2021 5:38 PM [facility] EOSINOPHILS 1.2 % 04/15/2021 5:38 PM [facility] BASOPHILS 0.6 % 04/15/2021 5:38 PM [facility] IMMATURE GRANS % 0.3 % 04/15/19 5:38 PM SPEEDOMETER INSPECTOR [facility] ABS. NEUTROPHILS TOTAL 5.78 1.80 - 7.70 x10'3/uL 04/15/2021 5:38 PM SPEEDOMETER INSPECTOR [facility] ABS. LYMPHOCYTES 2.95 1.00 - 4.80 x10'3/uL 04/15/2021 5:38 PM SPEEDOMETER INSPECTOR [facility] ABS. MONOCYTES 0.50 0.24 - 0.86 x10'3/uL 04/15/2021 5:38 PM SPEEDOMETER INSPECTOR [facility] ABS. EOSINOPHILS 0.11 0.04 - 0.36 x10'3/uL 04/15/2021 5:38 PM SPEEDOMETER INSPECTOR [facility] ABS. BASOPHILS 0.06 0.01 - 0.08 x10'3/uL 04/15/2021 5:38 PM SPEEDOMETER INSPECTOR [facility] ABS. IMMATURE GRANULOCYTES 0.03 0.00 - 0.49 x10'3/uL 04/15/2021 5:38 PM [facility] 04/15/2021 5:20 PM SPEEDOMETER INSPECTOR us June Caputo NP LABORATORY Final Result [facility] [address] [place] [address], documented in this encounter Visit Diagnoses Diagnosis Renal stones- Primary Calculus of kidney Bilateral renal stones Abdominal pain Abdominal pain, unspecified site Perceived constipation Unspecified constipation documented in this encounter Admitting Diagnoses Diagnosis Renal stones Calculus of kidney documented in this encounter Administered Medications Inactive Administered Medications - up to 3 most recent administrations Medication Order MAR Action Action Date Dose Rate Site atorvastatin (LIPITOR) tablet 20 mg 20 mg, Oral, Nightly at bedtime, First dose on Sun04/15/21 at 2345, Until Discontinued Given 04/15/2021 11:36 PM SPEEDOMETER INSPECTOR 20 mg bisacodyl (DULCOLAX) suppository 10 mg 10 mg, Rectal, Daily as needed, Constipation, Starting on 04/16/21 at 0802, Until 04/16/21 at 1606 dextrose (GLUTOSE) 40 % oral gel 15-30 g 15-30 g, Oral, As needed, Low blood sugar, Starting on Sun04/15/21 at 2137, Until 04/16/21 at 1606, If patient is verbally responsive and taking thickened liquids or oral medications: Blood glucose less than 50 mg/dL - give 30 g (2 tubes), repeat until blood glucose reaches 70 mg/dL Blood glucose 50-69 mg/dL - give 15 g (1 tube), repeat until blood glucose reaches 70 mg/dL dextrose 10 % bolus infusion 125-250 mL 125-250 mL, Intravenous, Administer over 15 Minutes, As needed, Low Blood Sugar, Starting on Sun04/15/21 at 2137, Until 04/16/21 at 1606, If patient is verbally responsive and NPO [...] Low blood sugar, 1 dose, Starting on Sun04/15/21 at 2137, Until 04/16/21 at 1606, If patient is verbally UNresponsive and no IV access with blood glucose less than 70 mg/dL. Do NOT repeat administration. insulin lispro (HUMALOG) injection 0-14 Units 0-14 Units, Subcutaneous, 3 times daily before meals, First dose on 04/16/21 at 1115, Until Discontinued, Blood Glucose (SENSITIVE Dosing): [Less than 70:? Initiate Hypoglycemia Standing Orders] [71-140: 0 units] [141-180: 2 units] [181-220: 4 units] [221-260: 6 units] [261-300: 8 units] [301-350: 10 units] [351-400: 12 units] [Greater than 400: 14 units and Call Physician] insulin lispro (HUMALOG) injection 0-7 Units 0-7 Units, Subcutaneous, Nightly at bedtime, First dose on Sun04/16/21 at 2100, Until Discontinued, Blood Glucose (SENSITIVE Dosing): [Less than 70:? Initiate Hypoglycemia Standing Orders] [71-180: ? 0 units] [181-220:? 2 units] [221-260:? 3 units] [261-300:? 4 units] [301-350:? 5 units] [351-400:? 6 units] [Greater than 400:? 7 units and Call Physician] iopamidol (ISOVUE-370) 76 % injection 100 mL 100 mL, Intravenous, IMG once as needed, Contrast, 1 dose, Starting on Sun04/15/21 at 1857, Until Sun04/15/21 at 1857 Given 04/15/2021 6:57 PM SPEEDOMETER INSPECTOR 100 mLs Right Arm ketorolac (TORADOL) injection 30 mg 30 mg, Intravenous, Once, 1 dose, On Sun04/15/21 at 2000, For IV administration, give over 15 seconds. Given 04/15/2021 8:31 PM SPEEDOMETER INSPECTOR 30 mg morphine injection 2 mg 2 mg, Intravenous, Every 3 hours PRN, Severe pain (Scale 8 - 10), Starting on Sun04/15/21 at 2224, Until 04/16/21 at 1606 Given 04/16/2021 8:36 AM SPEEDOMETER INSPECTOR 2 mg Given 04/15/2021 11:36 PM SPEEDOMETER INSPECTOR 2 mg naLOXone (NARCAN) injection 0.4 mg 0.4 mg, Intravenous, As needed, Opioid reversal, Starting on Sun04/15/21 at 2227, Until 04/16/21 at 1606 ondansetron (ZOFRAN) injection 4 mg 4 mg, Intravenous, Once, 1 dose, On Sun04/15/21 at 1700, IV push over 2-5 minutes. Given 04/15/2021 5:25 PM SPEEDOMETER INSPECTOR 4 mg ondansetron (ZOFRAN) injection 4 mg 4 mg, Intravenous, Every 8 hours PRN, Nausea, Starting on Sun04/15/21 at 2210, Until 04/16/21 at 1606, IV push over 2-5 minutes. Given 04/15/2021 11:42 PM SPEEDOMETER INSPECTOR 4 mg polyethylene glycol (GLYCOLAX) packet 1 packet 1 packet, Oral, Daily as needed, Constipation, Starting on 04/16/21 at 0802, Until 04/16/21 at 1606, Dissolve powder in 240 mL water senna-docusate (SENOKOT-S) 8.6-50 MG tablet 1 tablet 1 tablet, Oral, 2 times daily, First dose on Sun04/16/21 at 0900, Until Discontinued Given 04/16/2021 8:36 AM SPEEDOMETER INSPECTOR 1 tablet sodium chloride 0.9% bolus infusion SOLN 1,000 mL 1,000 mL, Intravenous, Administer over 15 Minutes, Once, 1 dose, On Sun04/15/21 at 1700 New Bag 04/15/2021 5:25 PM SPEEDOMETER INSPECTOR 1,000 mLs sodium chloride 0.9% infusion at 100 mL/hr, Intravenous, Continuous, Starting on Sun04/15/21 at 2330, Until 04/16/21 at 1606 New Bag 04/16/2021 8:37 AM SPEEDOMETER INSPECTOR 100 mL/hr New Bag 04/15/2021 11:14 PM SPEEDOMETER INSPECTOR 100 mL/hr tamsulosin (FLOMAX) capsule 0.4 mg 0.4 mg, Oral, Daily, First dose on Sun04/16/21 at 0900, Until Discontinued Given 04/16/2021 8:36 AM SPEEDOMETER INSPECTOR 0.4 mg documented in this encounter Active and Recently Administered Medications Times are shown in SPEEDOMETER INSPECTOR. Scheduled Medication Order 04/14/2021 04/15/2021 04/16/2021 amLODIPine (NORVASC) tablet 10 mg 10 mg, Oral, Nightly, First dose on Sun04/16/21 at 2100, Until Discontinued atorvastatin (LIPITOR) tablet 20 mg 20 mg, Oral, Nightly at bedtime, First dose on Sun04/15/21 at 2345, Until Discontinued 2336 (Given - Provider: Erica Pope, DEANDRE) insulin lispro (HUMALOG) injection 0-14 Units(Linked Group 1) 0-14 Units, Subcutaneous, 3 times daily before meals, First dose on Sun04/16/21 at 1115, Until Discontinued, Blood Glucose (SENSITIVE Dosing): [Less than 70:? Initiate Hypoglycemia Standing Orders] [71-140: 0 units] [141-180: 2 units] [181-220: 4 units] [221-260: 6 units] [261-300: 8 units] [301-350: 10 units] [351-400: 12 units] [Greater than 400: 14 units and Call Physician] 1212 (Not Given - Provider: Gigi Rojo RN - Reason: Other)1600 (Canceled Entry - Provider: Automatic Discharge Provider - Comment: Automatically canceled at discontinue of medication order) insulin lispro (HUMALOG) injection 0-7 Units(Linked Group 1) 0-7 Units, Subcutaneous, Nightly at bedtime, First dose on Sun04/16/21 at 2100, Until Discontinued, Blood Glucose (SENSITIVE Dosing): [Less than 70:? Initiate Hypoglycemia Standing Orders] [71-180: ? 0 units] [181-220:? 2 units] [221-260:? 3 units] [261-300:? 4 units] [301-350:? 5 units] [351-400:? 6 units] [Greater than 400:? 7 units and Call Physician] ketorolac (TORADOL) injection 30 mg (COMPLETED) 30 mg, Intravenous, Once, 1 dose, On Sun04/15/21 at 2000, For IV administration, give over 15 seconds. 2030 (Given - Provider: Mirna Reyna RN) lisinopril (PRINIVIL) tablet 40 mg 40 mg, Oral, Nightly, First dose on Sun04/16/21 at 2100, Until Discontinued morphine injection 4 mg 4 mg, Intravenous, Once, 1 dose, On Sun04/15/21 at 1700 1700 (Canceled Entry - Provider: Automatic Discharge Provider - Comment: Automatically canceled at discontinue of medication order) ondansetron (ZOFRAN) injection 4 mg (COMPLETED) 4 mg, Intravenous, Once, 1 dose, On Sun04/15/21 at 1700, IV push over 2-5 minutes. 1724 (Given - Provider: Stevenson Dong RN) senna-docusate (SENOKOT-S) 8.6-50 MG tablet 1 tablet 1 tablet, Oral, 2 times daily, First dose on 04/16/21 at 0900, Until Discontinued 08 (Given - Provid er: Gigi Rojo RN) sodium chloride 0.9% bolus infusion SOLN 1,000 mL (COMPLETED) 1,000 mL, Intravenous, Administer over 15 Minutes, Once, 1 dose, On Sun04/15/21 at 1700 1725 (New Bag - Provider: Stevenson Dong RN)2025 (Infusion Stop Time - Provider: Mirna Reyna RN) tamsulosin (FLOMAX) capsule 0.4 mg (CANCELED) 0.4 mg, Oral, Daily, First dose on 04/16/21 at 0900, Until Discontinued 835 (Given - Provid er: Gigi Rojo RN) Continuous Medication Order 04/14/2021 04/15/2021 04/16/2021 sodium chloride 0.9% infusion at 100 mL/hr, Intravenous, Continuous, Starting on Sun04/15/21 at 2330, Until 04/16/21 at 1606 2314 (New Bag - Provider: Erica Pope RN) 0837 (New Bag - Provider: Gigi Rojo, DEANDRE) PRN Medication Order 04/14/2021 04/15/2021 04/16/2021 bisacodyl (DULCOLAX) suppository 10 mg 10 mg, Rectal, Daily as needed, Constipation, Starting on 04/16/21 at 0802, Until 04/16/21 at 1606 cyclobenzaprine (FLEXERIL) tablet 10 mg 10 mg, Oral, 3 times daily PRN, Muscle Spasms, Starting on Sun04/15/21 at 2324, Until 04/16/21 at 1606 dextrose (GLUTOSE) 40 % oral gel 15-30 g 15-30 g, Oral, As needed, Low blood sugar, Starting on Sun04/15/21 at 2137, Until 04/16/21 at 1606, If patient is verbally responsive and taking thickened liquids or oral medications: Blood glucose less than 50 mg/dL - give 30 g (2 tubes), repeat until blood glucose reaches 70 mg/dL Blood glucose 50-69 mg/dL - give 15 g (1 tube), repeat until blood glucose reaches 70 mg/dL dextrose 10 % bolus infusion 125-250 mL 125-250 mL, Intravenous, Administer over 15 Minutes, As needed, Low Blood Sugar, Starting on Sun04/15/21 at 2137, Until 04/16/21 at 1606, If patient is verbally responsive and NPO [...] Low blood sugar, 1 dose, Starting on Sun04/15/21 at 2137, Until 04/16/21 at 1606, If patient is verbally UNresponsive and no IV access with blood glucose less than 70 mg/dL. Do NOT repeat administration. iopamidol (ISOVUE-370) 76 % injection 100 mL (COMPLETED) 100 mL, Intravenous, IMG once as needed, Contrast, 1 dose, Starting on Sun04/15/21 at 1857, Until Sun04/15/21 at 1857 1857 (Given - Provider: Ivon Nuñez, RTR) morphine injection 2 mg 2 mg, Intravenous, Every 3 hours PRN, Severe pain (Scale 8 - 10), Starting on Sun04/15/21 at 2224, Until 04/16/21 at 1606 2336 (Given - Provider: Erica Pope, DEANDRE) 0836 (Given - Provider: Gigi Rojo RN) naLOXone (NARCAN) injection 0.4 mg 0.4 mg, Intravenous, As needed, Opioid reversal, Starting on Sun04/15/21 at 2227, Until 04/16/21 at 1606 ondansetron (ZOFRAN) injection 4 mg 4 mg, Intravenous, Every 8 hours PRN, Nausea, Starting on Sun04/15/21 at 2210, Until 04/16/21 at 1606, IV push over 2-5 minutes. 2342 (Given - Provider: Ericamaria e Pope RN) polyethylene glycol (GLYCOLAX) packet 1 packet 1 packet, Oral, Daily as needed, Constipation, Starting on 04/16/21 at 0802, Until 04/16/21 at 1606, Dissolve powder in 240 mL water Linked Groups Order Group 1: insulin lispro (HUMALOG) injection 0-14 UnitsJump to med 0-14 Units, Subcutaneous, 3 times daily before meals, First dose on 04/16/21 at 1115, Until Discontinued, Blood Glucose (SENSITIVE Dosing): [Less than 70:? Initiate Hypoglycemia Standing Orders] [71-140: 0 units] [141-180: 2 units] [181-220: 4 units] [221-260: 6 units] [261-300: 8 units] [301-350: 10 units] [351-400: 12 units] [Greater than 400: 14 units and Call Physician] And insulin lispro (HUMALOG) injection 0-7 UnitsJump to med 0-7 Units, Subcutaneous, Nightly at bedtime, First dose on 04/16/21 at 2100, Until Discontinued, Blood Glucose (SENSITIVE Dosing): [Less than 70:? Initiate Hypoglycemia Standing Orders] [71-180: ? 0 units] [181-220:? 2 units] [221-260:? 3 units] [261-300:? 4 units] [301-350:? 5 units] [351- 400:? 6 units] [Greater than 400:? 7 units and Call Physician] documented in this encounter Additional Health Concerns Assessment Noted Time PHQ-9 Depression Total Score: 0 03/08/19 22 9:30 AM SPEEDOMETER INSPECTOR documented as of this encounter Care Teams Puncher Relationship Specialty Start Date End Date Yasmin Segura II, MD [address] [place] [id number] PCP - General FAMILY PRACTICE 03/09/21 documented as of this encounter
--- OUTSIDE RECORDS SUMMARY | 2024-03-02 22:29 | XMS_ITS | Encounter Summary ---
Author Organization [facility] Address [address] [place] [address]. [place] [address] [place] [address] Care Team Providers Care Rat Breeder Name Role Phone Colton SILVEIRA MD, Abiodun Rushing Primary Care Provider Encounter Details Date Type Department Care Team (Late st Contact Info) Description 04/13/2021 9:56 AM POULTRY EVISCERATOR - 04/13/2021 11:[address] [facility] Hospital Encounter [facility] [place], [place] [id number] Abiodun Segura II, MD [address] [place] [phone] Discharge Disposition: Home or Self Care [...] Coronavirus/COVID-19? No / Unsure 04/13/2021 9:54 AM POULTRY EVISCERATOR documented as of this encounter Functional Status [...] Author Status No 08/12/2019 3:00 AM CDT TottyShelby, R N Active * Do you have difficulty dressing or bathing? Answer Date of Assessment Author Status Yes 08/12/2019 3:00 AM CDT TottyJacintaa Miguelina R N Active * Because of a [...] Status No 08/12/2019 3:00 AM CDT TottyJacintaa Miguelina R N Active documented in this encounter [...] arthropathy, with long-term current use of insulin ([facility]) Inject 3 mg into the skin weekly. 12 pen 3 2 01/07/20 HUMALOG MIX 75/25 (75-25) 100 UNIT/ML Suspension Take 55 units in AM and 50 units PM, this should be titrated depending on your blood sugar numbers. 1 vial 1 7 05/17/19 22 HYDROCHLOROTHIAZIDE 25 MG tabletIndications:P rimary hypertension Take 1 tablet by mouth once daily 90 tablet 1 04/16/19 22 lisinopril 40 MG tablet Take 40 mg by mouth nightly. 7 06/01/19 meloxicam 15 MG tabletIndications:C hronic bilateral low back pain without sciatica Take 1 tablet (15 mg total) by mouth daily. 30 tablet 1 1 04/16/19 Misc. Devices (PILL SPLITTER) MiscIndications:Olivia jonatan hypertension [...] needed for Nausea. 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 7 07/12/19 spironolactone 25 MG tabletIndications:P rimary hypertension Take 0.5 tablets (12.5 mg total) by mouth daily. 45 tablet 3 1 04/16/19 22 documented as of this encounter Progress Notes * Abiodun Segura II, MD - 04/13/2021 10:55 AM CST Patient called with results. Creatinine above baseline. We will stop hydrochlorothiazide. Follow upas scheduled next week. TRY EVISCERATOR documented in this encounter Plan of Treatment Upcoming Encounters Date Type Department Care Team (Late st Contact Info) Description 03/14/2024 11:45 AM POULTRY EVISCERATOR Office Visit [facility] [phone] Marvin Mckeon MD [facility] [address] [place] [phone] 03/20/2024 11:30 AM POULTRY EVISCERATOR Office Visit [facility] Family Medicine - [address] [phone] Abiodun Segura II, MD [address] [place] [address] documented as of this encounter Procedures Procedure Name Priority Date/Time Associated Diagnosis Comments COMPREHENSIVE METABOLIC PANEL Routine 04/13/2021 10:23 AM POULTRY EVISCERATOR Renal disorder documented in this encounter Results * (ABNORMAL) COMPREHENSIVE METABOLIC PANEL (04/13/2021 10:23 AM POULTRY EVISCERATOR) GLUCOSE 157(H) 70 - 99 MG/DL 04/13/2021 11:57 AM POULTRY EVISCERATOR [facility] BUN 32(H) 7 - 18 MG/DL 04/13/2021 11:57 AM POULTRY EVISCERATOR [facility] CREATININE S/P/B 1.84(H) 0.55 - 1.02 MG/DL 04/13/2021 11:57 AM POULTRY EVISCERATOR [facility] SODIUM S/P/B 133(L) 136 - 145 MMOL/L 04/13/2021 11:57 AM [facility] POTASSIUM S/P/B 4.5 3.5 - 5.1 MMOL/L 04/13/2021 11:57 AM [facility] CHLORIDE S/P/B 101 100 - 108 MMOL/L 04/13/2021 11:57 AM [facility] CO2 25.6 21 - 32 MMOL/L 04/13/2021 11:57 AM [facility] CALCIUM S/P/B 9.2 8.5 - 10.1 MG/DL 04/13/2021 11:57 AM [facility] BILIRUBIN TOTAL S/P/B 0.5 0.2 - 1.2 MG/DL 04/13/2021 11:57 AM [facility] Comment: THIS ASSAY IS NOT RECOMMENDED FOR PATIENTS UNDERGOING TREATMENT WITH ELTROMBOPAG DUE TO THE POTENTIAL FOR FALSELY ELEVATED RESULTS. TOTAL PROTEIN S/P/B 8.9(H) 6.4 - 8.2 G/DL 04/13/2021 11:57 AM [facility] ALBUMIN S/P/B 3.5 3.4 - 5.0 G/DL 04/13/2021 11:57 AM [facility] AST 20 15 - 37 U/L 04/13/2021 11:57 AM [facility] ALT 28 14 - 55 U/L 04/13/2021 11:57 AM [facility] ALKALINE PHOSPHATASE S/P/B 133 50 - 136 U/L 04/13/2021 11:57 AM [facility] ANION GAP 6.4 5 - 15 MMOL/L 04/13/2021 11:57 AM [facility] BUN CREATININE RATIO 17.4 6 - 26 04/13/2021 11:57 AM [facility] A/G RATIO 0.6(L) 1.0 - 2.0 RATIO 04/13/2021 11:57 AM POULTRY EVISCERATOR [facility] EGFR NON-AFR. AMER. 31(L) >90 ML/MIN/1.7 3 M2 04/13/2021 11:57 AM POULTRY EVISCERATOR [facility] EGFR AFR. AMER. 36(L) >90 ML/MIN/1.7 3 M2 04/13/2021 11:57 AM POULTRY EVISCERATOR [facility] Comment: NOTE: eGFR is not calculated for patients <18 years of age. This is an estimated GFR (CKD EPI) and should not be used for calculating drug doses. 04/13/2021 10:2 3 AM POULTRY EVISCERATOR us Abiodun Segura II, MD LABORATORY Final R esult [facility] [address] [place] [address], documented in this encounter Visit Diagnoses Diagnosis Renal disorder Unspecified disorder of kidney and ureter documented in this encounter Additional Health Concerns Assessment Noted Time PHQ-9 Depression Total Score: 0 03/08/19 22 9:30 AM POULTRY EVISCERATOR documented as of this encounter Care Teams Rat Breeder Relationship Specialty Start Date End Date Abiodun Segura II, MD [address] [place] [address] PCP - General FAMILY PRACTICE 03/09/21 documented as of this encounter
--- OUTSIDE RECORDS SUMMARY | 2024-03-02 22:29 | XMS_ITS | Encounter Summary ---
Author Organization [facility] Address [address] [place] [address]. [place] [address] [place] [address] Care Team Providers Care Loom Operator Name Role Phone Colton SILVEIRA MD, Abiodun Rushing Primary Care Provider Reason for Visit * Reason Onset Date Comments Medication 06/20/2021 UTI 06/20/2021 Encounter Details Date Type Department Care Team (Late st Contact Info) Description 06/20/2021 Telephone [facility] Family Medicine - [place] 100 [place] [address] Abiodun Segura II, MD 100 [place] [address] Medication; UTI Social History Tobacco Use Types Packs/Day [...] Assessment Author Status No 04/15/2021 11:33 PM AUTOMOTIVE FLEET SUPERVISOR Acti ve * RETIRED Are you blind or do you have serious difficulty seeing, even when wearing glasses? Answer Date of Assessment Author Status No 04/15/2021 11:33 PM AUTOMOTIVE FLEET SUPERVISOR Acti ve * Do you have [...] Progress Notes * Laura Mccartney MA - 06/20/2021 2:41 PM CDT Please advise * Willa Merino - 06/20/2021 2:02 PM CDT Call back [phone] Lena said that she has a UTI and she has reocurring UTIs. She is requesting an antibiotic. She said she is feeling like its starting and she is going out of town on the weekend and wants to be on the safe side. Pharmacy is [facility] in [place] I did tell her that I dont know if Dr. Mercado would prescribe without an appt. She insisted on seeing ifhe would send it over before making an appt since she comes in on the documented in this encounter Plan of Treatment Upcoming Encounters Date Type Department Care Team (Late st Contact Info) Description 03/14/2024 11:45 AM AUTOMOTIVE FLEET SUPERVISOR Office Visit [facility] [phone] Marvin Mckeon MD Three [facility] [address] [place] [address] 03/20/2024 11:30 AM AUTOMOTIVE FLEET SUPERVISOR Office Visit [facility] Medical Group Family Medicine - [place] [address] [place] [phone] Abiodun Segura II, MD [address] [place] [address] documented as of this encounter Visit Diagnoses Not on filedocumented in this encounter Additional Health Concerns Assessment Noted Time PHQ-9 Depression Total Score: 0 03/08/19 9:30 AM AUTOMOTIVE FLEET SUPERVISOR documented as of this encounter Care Teams Loom Operator Relationship Specialty Start Date End Date Abiodun Segura II, MD [address] [place], [place] [address] PCP - General FAMILY PRACTICE 03/09/21 documented as of this encounter
--- OUTSIDE RECORDS SUMMARY | 2024-03-02 22:29 | XMS_ITS | Encounter Summary ---
Author Organization [facility] Address [address] [place] [address]. [place], [place] [address] [place] [address] Care Team Providers Care Privacy Compliance Manager Name Role Phone Colton SILVEIRA MD, Abiodun Rushing Primary Care Provider Encounter Details Date Type Department Care Team (Latest Contact Info) Description 05/10/2021 Travel Social History Tobacco Use Types Packs/Day [...] Author Status No 04/15/2021 11:33 PM CERTIFIED INDUSTRIAL HYGIENIST Acti ve * RETIRED Are you blind or do you have serious difficulty seeing, even when wearing glasses? Answer Date of Assessment Author Status No 04/15/2021 11:33 PM CERTIFIED INDUSTRIAL HYGIENIST Acti ve * Do you have serious [...] Contact Info) Description 03/14/2024 11:45 AM CERTIFIED INDUSTRIAL HYGIENIST Office Visit [facility] [phone] Marvin Mckeon MD [facility] [address] [place], [place] [phone] 03/20/2024 11:30 AM CERTIFIED INDUSTRIAL HYGIENIST Office Visit [facility] Medical [facility] Family Medicine - [place] [address] [place] [phone] Abiodun Segura II, MD [address] [place] [phone] documented as of this encounter Visit Diagnoses Not on filedocumented in this encounter Additional Health Concerns Assessment Noted Time PHQ-9 Depression Total Score: 0 03/08/19 9:30 AM CERTIFIED INDUSTRIAL HYGIENIST documented as of this encounter Care Teams Privacy Compliance Manager Relationship Specialty Start Date End Date Abiodun Segura II, MD 100 [place] [address] PCP - General FAMILY PRACTICE 03/09/21 documented as of this encounter
--- OUTSIDE RECORDS SUMMARY | 2024-03-02 22:29 | XMS_ITS | Encounter Summary ---
Author Organization [facility] Address [address] [place] [address]. [place], [place] [address] [place] [address] Care Team Providers Care Arboriculture Teacher Name Role Phone Jarred Rod MD Primary Care Provider Unav ailable Reason for Referral * Imaging (Routine) - Closed Specialty Diagnoses / Procedures Referred By Contac t Referred To Contact RADIOLOGY Diagnoses Hydronephrosis with ureteral stricture, not elsewhere classified Procedures US RETROPERITONEAL COMP Yasmin Valenzuela II, MD [address] [place] [address] Phone: tel: fax: Referral ID Status Reason Start Date Expiration Date Visits Re quested Visits Authorized [id number] Closed 02/23/2021 03/26/2022 1 1 FITS SPECIALIST RECRUITER Reason for Visit * Imaging (Routine) - Closed Specialty Diagnoses / Procedures Referred By Contxavier chaney Referred To Contact RADIOLOGY Diagnoses Hydronephrosis with ureteral stricture, not elsewhere classified Procedures US RETROPERITONEAL COMP Yasmin Valenzuela II, MD [address] [place] [address] Phone: tel: fax: Referral ID Status Reason Start Date Expiration Date Visits Re quested Visits Authorized [id number] Closed 02/23/2021 03/26/2022 1 1 Encounter Details Date Type Department Care Team (Late st Contact Info) Description 03/04/2021 10:00 AM BENEFITS SPECIALIST RECRUITER - 03/04/2021 11:59 PM BENEFITS SPECIALIST RECRUITER Hospital Encounter [facility] [address] [place] [address] Yasmin Valenzuela II, MD [address] [place] [address] Discharge Disposition: Home or Self Care (Routine [...] COVID-19? No / Unsure 03/04/2021 10:02 AM BENEFITS SPECIALIST RECRUITER documented as of this encounter Functional Status [...] MINUTES 1 12/17/19 ondansetron 4 MG disintegrating tablet Take 1 tablet (4 mg total) by mouth every 8 (eight) hours as needed for Nausea. 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 Stable findings from previous exam. Will review with patient at upcoming appointment. FITS SPECIALIST RECRUITER documented in this encounter Plan of Treatment Upcoming Encounters Date Type Department Care Team (Late st Contact Info) Description 03/14/2024 11:45 AM BENEFITS SPECIALIST RECRUITER Office Visit [facility] [phone] Marvin Mckeon MD Three [facility] [address] [facility] [place] [address] 03/20/2024 11:30 AM BENEFITS SPECIALIST RECRUITER Office Visit [facility] Medical [facility] Family Medicine - [place] 100 [place] [phone] Yasmin Valenzuela II, MD 100 [place] [address] documented as of this encounter Procedures Procedure Name Priority Date/Time Associated Diagnosis Comments US RETROPERITONEAL COMP Routine 03/04/19 11:08 AM BENEFITS SPECIALIST RECRUITER Hydronephrosis with ureteral stricture, not elsewhere classified documented in this encounter Results * US RETROPERITONEAL COMP (03/04/2021 11:08 AM BENEFITS SPECIALIST RECRUITER) Anatomical Region Laterality Modality Abdomen Ultrasound 03/04/2021 12:1 3 PM BENEFITS SPECIALIST RECRUITER Impressions 03/04/2021 3:19 PM BENEFITS SPECIALIST RECRUITER IMPRESSION: 1. Chronic dilation of the right [...] 03/04/2021 12:13 PM Narrative 03/04/2021 3:19 PM BENEFITS SPECIALIST RECRUITER IMAGING STUDIES: ??US RETROPERITONEAL COMP ?DATE: ??03/04/2021 [...] thinning andhydronephrosis. Please evaluate for worsening. Thanks. [id number] with right hydronephrosis and renal cortical thinning. [...] Valenzuela II, MD ULTRASOUND Final R esult documented in this encounter Visit Diagnoses Diagnosis Hydronephrosis with ureteral stricture, not elsewhere classified documented in this encounter Additional Health Concerns Assessment Noted Time PHQ-9 Depression Total Score: 0 10/09/19 21 10:02 AM CDT documented as of this encounter Care Teams Arboriculture Teacher Relationship Specialty Start Date End Date Jarred Rod MD PCP - General FAMILY PRACTICE 01/17/21 03/08/21 documented as of this encounter
--- OUTSIDE RECORDS SUMMARY | 2024-03-02 22:29 | XMS_ITS | Encounter Summary ---
Author Organization [facility] Address [address] [place] [address]. [place] [address] [place] [address] Care Team Providers Care Motorboat Mechanic Inboard/Outboard Name Role Phone Colton SILVEIRA MD, Abiodun Rushing Primary Care Provider Encounter Details Date Type Department Care Team (Late st Contact Info) Description 04/15/2021 Orders Only [facility] Medical [facility] Family Medicine - [place] 100 [place] [address] Abiodun Segura II, MD 100 [place] [address] Social History Tobacco Use Types [...] Coronavirus/COVID-19? No / Unsure 04/13/2021 9:54 AM GEOTHERMAL TECHNICIAN documented as of this encounter Functional [...] AM CDT TotShelby rodriguez, R N Active * Do you have [...] Status No 08/12/2019 3:00 AM CDT Shelby Martinez, R N Active documented in this encounter Plan of Treatment Upcoming Encounters Date Type Department Care Team (Late st Contact Info) Description 03/14/2024 11:45 AM GEOTHERMAL TECHNICIAN Office Visit [facility] [phone] Marvin Mckeon MD [address] [facility] [address] [place] [address] 03/20/2024 11:30 AM GEOTHERMAL TECHNICIAN Office Visit [facility] Medical Group Family Medicine - [address] [phone] Abiodun Segura II, MD [address] [place] [phone] documented as of this encounter Visit Diagnoses Not on filedocumented in this encounter Additional Health Concerns Assessment Noted Time PHQ-9 Depression Total Score: 0 03/08/19 9:30 AM GEOTHERMAL TECHNICIAN documented as of this encounter Care Teams Motorboat Mechanic Inboard/Outboard Relationship Specialty Start Date End Date Abiodun Segura II, MD 100 [place] [address] PCP - General FAMILY PRACTICE 03/09/21 documented as of this encounter
--- OUTSIDE RECORDS SUMMARY | 2024-03-02 22:29 | XMS_ITS | Encounter Summary ---
Author Organization [facility] Address [address] [place] [address]. [place], [place] [phone] [place] [address] Care Team Providers Care Placing Judge Name Role Phone Colton SILVEIRA MD, Abiodun Rushing Primary Care Provider Encounter Details Date Type Department Care Team (Latest Contact Info) Description 04/20/2021 Travel Social History Tobacco Use Types Packs/Day [...] Coronavirus/COVID-19? No / Unsure 04/20/2021 9:45 AM ARCHIVIST NONPROFIT FOUNDATION documented as of this encounter Functional Status * RETIRED Are you deaf or do you have serious difficulty hearing Answer Date of Assessment Author Status No 04/15/2021 11:33 PM ARCHIVIST NONPROFIT FOUNDATION Acti ve * RETIRED Are you blind or do you have serious difficulty seeing, even when wearing glasses? Answer Date of Assessment Author Status No 04/15/2021 11:33 PM ARCHIVIST NONPROFIT FOUNDATION Acti ve * Do you have serious [...] st Contact Info) Description 03/14/2024 11:45 AM ARCHIVIST NONPROFIT FOUNDATION Office Visit [facility]-[address] [phone] Marvin Mckeon MD [facility] [address] [place] [phone] 03/20/2024 11:30 AM ARCHIVIST NONPROFIT FOUNDATION Office Visit [facility] Medical Group Family Medicine - [place] 100 [place] [phone] Abiodun Segura II, MD [address] [place] [phone] documented as of this encounter Visit Diagnoses Not on filedocumented in this encounter Additional Health Concerns Assessment Noted Time PHQ-9 Depression Total Score: 0 03/08/19 9:30 AM ARCHIVIST NONPROFIT FOUNDATION documented as of this encounter Care Teams Placing Judge Relationship Specialty Start Date End Date Abiodun Segura II, MD 100 [place] [address] PCP - General FAMILY PRACTICE 03/09/21 documented as of this encounter
--- OUTSIDE RECORDS SUMMARY | 2024-03-02 22:29 | XMS_ITS | Encounter Summary ---
Author Organization [facility] Address [address] [place] [address]. [place] [address] [place] [address] Care Team Providers Care Purchasing Specialist Name Role Phone Jarred Rod MD Primary Care Provider Unav ailable Encounter Details Date Type Department Care Team (Late st Contact Info) Description 02/23/2021 11:10 AM SNUFF GRINDER AND SCREENER - 02/23/2021 11:59 PM [facility] Hospital Encounter [facility] [place], [place] [phone] Abiodun Segura II, MD 100 [place], [place] [phone] Discharge Disposition: Home or Self Care (Routine [...] COVID-19? No / Unsure 02/23/2021 9:53 AM SNUFF GRINDER AND SCREENER documented as of this encounter Functional Status [...] 3 1 08/08/19 23 ciprofloxacin 500 MG tabletIndications:C ystitis Take 1 tablet (500 mg total) by mouth 2 (two) times daily for 7 days. 14 tablet 1 02/24/19 22 HUMALOG MIX 75/25 (75-25) 100 UNIT/ML [...] needed for Nausea. 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) USE 1 SYRINGE SUBCUTANEOUSLY TWICE DAILY 100 [...] current use of insulin ([facility]) INJECT 1.5 MG SUBCUTANEOUSLY ONCE EVERY 7 DAYS 4 mL 1 1 03/21/19 22 documented as of this encounter Progress Notes * Abiodun Segura II, MD - 02/23/2021 11:10 AM CST Lab results reviewed. Minor abnormalities noted. Will review with patient at upcoming appointment and make adjustments if needed. F GRINDER AND SCREENER documented in this encounter Plan of Treatment Upcoming Encounters Date Type Department Care Team (Late st Contact Info) Description 03/14/2024 11:45 AM SNUFF GRINDER AND SCREENER Office Visit [facility] [phone] Marvin Mckeon MD [address] [facility] [address] [place] [address] 03/20/2024 11:30 AM SNUFF GRINDER AND SCREENER Office Visit [facility] Medical [facility] Family Medicine - [address] [phone] Abiodun Segura II, MD 100 [place] [address] documented as of this encounter Procedures Procedure Name Priority Date/Time Associated Diagnosis Comments HEMOGLOBIN, GLYCOSYLATED Routine 02/23/2021 11:27 AM SNUFF GRINDER AND SCREENER Type 2 diabetes mellitus with diabetic neuropathic arthropathy, with long-term current use of insulin ([facility]) COMPREHENSIVE METABOLIC PANEL Routine 02/23/2021 11:27 AM SNUFF GRINDER AND SCREENER Primary hypertension LIPID PANEL Routine 02/23/2021 11:27 AM SNUFF GRINDER AND SCREENER Hypercholesteremia CBC W/DIFF AUTOMATED Routine 02/23/2021 11:27 AM SNUFF GRINDER AND SCREENER Primary hypertension documented in this encounter Results * (ABNORMAL) LIPID PANEL (02/23/2021 11:27 AM SNUFF GRINDER AND SCREENER) CHOLESTEROL 174 <200 MG/DL 02/23/2021 12:52 PM SNUFF GRINDER AND SCREENER [facility] TRIGLYCERIDES 269(H) <150 MG/DL 02/23/2021 12:52 PM SNUFF GRINDER AND SCREENER [facility] HDL 41 >40.0 MG/DL 02/23/2021 12:52 PM [facility] LDL (CALCULATED) 79 <100 MG/DL 02/23/2021 12:52 PM [facility] NON HDL CHOLESTEROL 133(H) <130 MG/DL 02/23/2021 12:52 PM [facility] CHOL/HDL RATIO 4.2 0.0 - 4.5 02/23/2021 12:52 PM [facility] VLDL CALCULATION 54 5 - 55 MG/DL 02/23/2021 12:52 PM [facility] LIPID INTERPRETATION 02/23/2021 12:52 PM [facility] Comment: [facility] CONCENSUS REPORT RECOMMENDATIONS: ?ADULT [...] ? >=160 ?>=130 02/23/2021 11:2 7 AM SNUFF GRINDER AND SCREENER us Abiodun Segura II, MD LABORATORY Final R esult [facility] [address] [place] [address], * (ABNORMAL) COMPREHENSIVE METABOLIC PANEL (02/23/2021 11:27 AM SNUFF GRINDER AND SCREENER) GLUCOSE 186(H) 70 - 99 MG/DL 02/23/2021 12:52 PM [facility] BUN 27(H) 7 - 18 MG/DL 02/23/2021 12:52 PM [facility] CREATININE S/P/B 1.38(H) 0.55 - 1.02 MG/DL 02/23/2021 12:52 PM [facility] SODIUM S/P/B 136 136 - 145 MMOL/L 02/23/2021 12:52 PM [facility] POTASSIUM S/P/B 4.5 3.5 - 5.1 MMOL/L 02/23/2021 12:52 PM [facility] CHLORIDE S/P/B 104 100 - 108 MMOL/L 02/23/2021 12:52 PM [facility] CO2 25.1 21 - 32 MMOL/L 02/23/2021 12:52 PM [facility] CALCIUM S/P/B 9.4 8.5 - 10.1 MG/DL 02/23/2021 12:52 PM [facility] BILIRUBIN TOTAL S/P/B 0.3 0.2 - 1.2 MG/DL 02/23/2021 12:52 PM [facility] Comment: THIS ASSAY IS NOT RECOMMENDED FOR PATIENTS UNDERGOING TREATMENT WITH ELTROMBOPAG DUE TO THE POTENTIAL FOR FALSELY ELEVATED RESULTS. TOTAL PROTEIN S/P/B 9.1(H) 6.4 - 8.2 G/DL 02/23/2021 12:52 PM [facility] ALBUMIN S/P/B 3.6 3.4 - 5.0 G/DL 02/23/2021 12:52 PM [facility] AST 21 15 - 37 U/L 02/23/2021 12:52 PM [facility] ALT 27 14 - 55 U/L 02/23/2021 12:52 PM [facility] ALKALINE PHOSPHATASE S/P/B 145(H) 50 - 136 U/L 02/23/2021 12:52 PM [facility] ANION GAP 6.9 5 - 15 MMOL/L 02/23/2021 12:52 PM [facility] BUN CREATININE RATIO 19.6 6 - 26 02/23/2021 12:52 PM [facility] A/G RATIO 0.7(L) 1.0 - 2.0 RATIO 02/23/2021 12:52 PM [facility] EGFR NON-AFR. AMER. 45(L) >90 ML/MIN/1.7 3 M2 02/23/2021 12:52 PM [facility] EGFR AFR. AMER. 52(L) >90 ML/MIN/1.7 3 M2 02/23/2021 12:52 PM [facility] Comment: NOTE: eGFR is not calculated for patients <18 years of age. This is an estimated GFR (CKD EPI) and should not be used for calculating drug doses. 02/23/2021 11:2 7 AM SNUFF GRINDER AND SCREENER Abiodun Segura II, MD LABORATORY Final R esult [facility] [address] [place] [address], [place] [phone] * CBC W/DIFF AUTOMATED (02/23/2021 11:27 AM SNUFF GRINDER AND SCREENER) WBC 9.7 4.5 - 11.0 x10'3/uL 02/23/2021 12:06 PM [facility] RBC 4.21 4.20 - 5.40 x10'6/uL 02/23/2021 12:06 PM [facility] HGB 12.8 12.0 - 16.0 G/DL 02/23/2021 12:06 PM [facility] HCT 39.7 38.0 - 48.0 % 02/23/2021 12:06 PM [facility] MCV 94.3 81.0 - 99.0 FL 02/23/2021 12:06 PM [facility] MCH 30.4 27.0 - 31.0 PG 02/23/2021 12:06 PM [facility] MCHC 32.2 32.0 - 36.0 G/DL 02/23/2021 12:06 PM [facility] RDW 13.0 11.5 - 14.5 % 02/23/2021 12:06 PM [facility] PLT 270 130 - 400 x10'3/uL 02/23/2021 12:06 PM [facility] MPV 11.1 9.3 - 12.2 FL 02/23/2021 12:06 PM [facility] DIFFERENTIAL TYPE AUTOMATED DIFFERENTIAL 02/23/2021 12:06 PM [facility] NEUTROPHILS % 59.8 % 02/23/2021 12:06 PM [facility] LYMPHOCYTES % 34.2 % 02/23/2021 12:06 PM [facility] MONOCYTES % 4.3 % 02/23/2021 12:06 PM [facility] EOSINOPHILS 0.8 % 02/23/2021 12:06 PM [facility] BASOPHILS 0.6 % 02/23/2021 12:06 PM [facility] IMMATURE GRANS % 0.3 % 02/23/19 12:06 PM [facility] ABS. NEUTROPHILS TOTAL 5.77 1.80 - 7.70 x10'3/uL 02/23/2021 12:06 PM [facility] ABS. LYMPHOCYTES 3.30 1.00 - 4.80 x10'3/uL 02/23/2021 12:06 PM [facility] ABS. MONOCYTES 0.42 0.24 - 0.86 x10'3/uL 02/23/2021 12:06 PM [facility] ABS. EOSINOPHILS 0.08 0.04 - 0.36 x10'3/uL 02/23/2021 12:06 PM [facility] ABS. BASOPHILS 0.06 0.01 - 0.08 x10'3/uL 02/23/2021 12:06 PM [facility] ABS. IMMATURE GRANULOCYTES 0.03 0.00 - 0.49 x10'3/uL 02/23/2021 12:06 PM SNUFF GRINDER AND SCREENER [facility] 02/23/2021 11:2 7 AM SNUFF GRINDER AND SCREENER Abiodun Segura II, MD LABORATORY Final R esult Performing Organization Address [place]/[facility] Co de Phone Number [facility] [address] [place] [address], * (ABNORMAL) HEMOGLOBIN, GLYCOSYLATED (02/23/2021 11:27 AM SNUFF GRINDER AND SCREENER) HGB A1C 8.9(H) <5.7 % 02/23/2021 1:15 PM SNUFF GRINDER AND SCREENER [facility] Comment: ADA GUIDELINES 2009 5.7 TO 6.4% INCREASED RISK OF DIABETES > OR = 6.5% CONSISTENT WITH DIABETES ESTIMATED AVG GLUCOSE 209 mg/dL 02/23/2021 1:15 PM SNUFF GRINDER AND SCREENER [facility] 02/23/2021 11:2 7 AM SNUFF GRINDER AND SCREENER Abiodun Segura II, MD LABORATORY Final R esult Performing Organization Address [place]/[facility] Co de Phone Number [facility] [address] [place] [address], [place] [phone] documented in this encounter Visit Diagnoses Diagnosis Type 2 diabetes mellitus with diabetic neuropathic arthropathy, with long-term current use of insulin ([facility]) Primary hypertension Unspecified essential hypertension Hypercholesteremia Pure hypercholesterolemia documented in this encounter Additional Health Concerns Assessment Noted Time PHQ-9 Depression Total Score: 0 10/09/19 21 10:02 AM CDT documented as of this encounter Care Teams Purchasing Specialist Relationship Specialty Start Date End Date Jarred Rod MD PCP - General FAMILY PRACTICE 01/17/21 03/08/21 documented as of this encounter
--- OUTSIDE RECORDS SUMMARY | 2024-03-02 22:29 | XMS_ITS | Encounter Summary ---
Author Organization [facility] Address [address] [place] [address]. [place] [address] [place] [address] Care Team Providers Care Car Hiker Name Role Phone Jarred Rod MD Primary Care Provider Unav ailable Encounter Details Date Type Department Care Team (Latest Contact Info) Description 01/24/2021 Travel Social History Tobacco Use Types Packs/Day [...] COVID-19? No / Unsure 01/24/2021 11:10 AM BIOMEDICAL ENGINEERING TECHNICIAN documented as of this encounter Functional [...] st Contact Info) Description 03/14/2024 11:45 AM BIOMEDICAL ENGINEERING TECHNICIAN Office Visit [facility] [phone] Marvin Mckeon MD Three [facility] [address] [place] [address] 03/20/2024 11:30 AM BIOMEDICAL ENGINEERING TECHNICIAN Office Visit [facility] Family Medicine - [place] [address] [place] [phone] Abiodun Segura II, MD [address] [place] [address] documented as of this encounter Visit Diagnoses Not on filedocumented in this encounter Additional Health Concerns Assessment Noted Time PHQ-9 Depression Total Score: 0 10/09/19 21 10:02 AM CDT documented as of this encounter Care Teams Car Hiker Relationship Specialty Start Date End Date Jarred Rod MD PCP - General FAMILY PRACTICE 01/17/21 03/08/21 documented as of this encounter
--- OUTSIDE RECORDS SUMMARY | 2024-03-02 22:29 | XMS_ITS | Encounter Summary ---
Author Organization [facility] Address [address] [place] [address]. [place] [address] [place] [address] Care Team Providers Care Law Firm Receptionist Name Role Phone Colton SILVEIRA MD, Abiodun Rushing Primary Care Provider Encounter Details Date Type Department Care Team (Late st Contact Info) Description 04/29/2021 2:09 PM REFRIGERATION SERVICE TECHNICIAN - 04/29/2021 11:59 PM [facility] Hospital Encounter [facility] [place] [id number] Abiodun Segura II, MD [address] [place] [phone] Discharge Disposition: Home or Self Care [...] Coronavirus/COVID-19? No / Unsure 04/29/2021 2:08 PM REFRIGERATION SERVICE TECHNICIAN documented as of this encounter Functional Status * RETIRED Are you deaf or do you have serious difficulty hearing Answer Date of Assessment Author Status No 04/15/2021 11:33 PM REFRIGERATION SERVICE TECHNICIAN Acti ve * RETIRED Are you blind or do you have serious difficulty seeing, even when wearing glasses? Answer Date of Assessment Author Status No 04/15/2021 11:33 PM REFRIGERATION SERVICE TECHNICIAN Acti ve * Do you have [...] arthropathy, with long-term current use of insulin ([facility]) Inject 3 mg into the skin weekly. 12 pen 3 2 01/07/20 Glucose Blood test stripIndications:Ty pe 2 diabetes mellitus with diabetic neuropathic arthropathy, with long-term current use of insulin ([facility]) USE 1 STRIP TO CHECK GLUCOSE TWICE DAILY 200 strip 3 2 01/02/20 HUMALOG MIX 75/25 (75-25) 100 UNIT/ML Suspension [...] arthropathy, with long-term current use of insulin ([facility]) USE 1 SYRINGE SUBCUTANEOUSLY TWICE DAILY 100 each 5 1 01/02/20 Senna 8.6 MG tablet Take 2 tablets (17.2 mg total) by mouth 2 (two) times a day. 120 tablet 2 03/16/20 22 simvastatin 40 MG tablet Take 40 mg by mouth nightly at bedtime. 7 07/12/19 documented as of this encounter Progress Notes * Abiodun Segura II, MD - 04/29/2021 2:10 PM CST Lab results reviewed. Minor abnormalities noted. Will review with patient at upcoming appointment and make adjustments if needed. IGERATION SERVICE TECHNICIAN documented in this encounter Plan of Treatment Upcoming Encounters Date Type Department Care Team (Late st Contact Info) Description 03/14/2024 11:45 AM REFRIGERATION SERVICE TECHNICIAN Office Visit [facility] [phone] Marvin Mckeon MD Three [facility] [address] [place] [phone] 03/20/2024 11:30 AM REFRIGERATION SERVICE TECHNICIAN Office Visit [facility] Family Medicine - [address] [phone] Abiodun Segura II, MD [address] [place] [phone] documented as of this encounter Procedures Procedure Name Priority Date/Time Associated Diagnosis Comments COMPREHENSIVE METABOLIC PANEL Routine 04/29/2021 2:15 PM REFRIGERATION SERVICE TECHNICIAN HEMA (acute kidney injury) documented in this encounter Results * (ABNORMAL) COMPREHENSIVE METABOLIC PANEL (04/29/2021 2:15 PM REFRIGERATION SERVICE TECHNICIAN) GLUCOSE 219(H) 70 - 99 MG/DL 04/29/2021 3:02 PM REFRIGERATION SERVICE TECHNICIAN [facility] BUN 18 7 - 18 MG/DL 04/29/2021 3:02 PM REFRIGERATION SERVICE TECHNICIAN [facility] CREATININE S/P/B 1.14(H) 0.55 - 1.02 MG/DL 04/29/2021 3:02 PM [facility] SODIUM S/P/B 139 136 - 145 MMOL/L 04/29/2021 3:02 PM [facility] POTASSIUM S/P/B 4.5 3.5 - 5.1 MMOL/L 04/29/2021 3:02 PM [facility] CHLORIDE S/P/B 107 100 - 108 MMOL/L 04/29/2021 3:02 PM [facility] CO2 29.1 21 - 32 MMOL/L 04/29/2021 3:02 PM [facility] CALCIUM S/P/B 9.9 8.5 - 10.1 MG/DL 04/29/2021 3:02 PM [facility] BILIRUBIN TOTAL S/P/B 0.3 0.2 - 1.2 MG/DL 04/29/2021 3:02 PM [facility] Comment: THIS ASSAY IS NOT RECOMMENDED FOR PATIENTS UNDERGOING TREATMENT WITH ELTROMBOPAG DUE TO THE POTENTIAL FOR FALSELY ELEVATED RESULTS. TOTAL PROTEIN S/P/B 8.5(H) 6.4 - 8.2 G/DL 04/29/2021 3:02 PM [facility] ALBUMIN S/P/B 3.4 3.4 - 5.0 G/DL 04/29/2021 3:02 PM [facility] AST 14(L) 15 - 37 U/L 04/29/2021 3:02 PM [facility] ALT 24 14 - 55 U/L 04/29/2021 3:02 PM [facility] ALKALINE PHOSPHATASE S/P/B 127 50 - 136 U/L 04/29/2021 3:02 PM [facility] ANION GAP 2.9(L) 5 - 15 MMOL/L 04/29/2021 3:02 PM REFRIGERATION SERVICE TECHNICIAN [facility] BUN CREATININE RATIO 15.8 6 - 26 04/29/2021 3:02 PM REFRIGERATION SERVICE TECHNICIAN [facility] A/G RATIO 0.7(L) 1.0 - 2.0 RATIO 04/29/2021 3:02 PM REFRIGERATION SERVICE TECHNICIAN [facility] EGFR NON-AFR. AMER. 56(L) >90 ML/MIN/1.7 3 M2 04/29/2021 3:02 PM REFRIGERATION SERVICE TECHNICIAN [facility] EGFR AFR. AMER. 65(L) >90 ML/MIN/1.7 3 M2 04/29/2021 3:02 PM REFRIGERATION SERVICE TECHNICIAN [facility] Comment: NOTE: eGFR is not calculated for patients <18 years of age. This is an estimated GFR (CKD EPI) and should not be used for calculating drug doses. 04/29/2021 2:15 PM REFRIGERATION SERVICE TECHNICIAN Abiodun Segura II, MD LABORATORY Final R esult [facility] [address] [place] [address], documented in this encounter Visit Diagnoses Diagnosis HEMA (acute kidney injury) (CMS/HCC) Acute kidney failure, unspecified documented in this encounter Additional Health Concerns Assessment Noted Time PHQ-9 Depression Total Score: 0 03/08/19 9:30 AM REFRIGERATION SERVICE TECHNICIAN documented as of this encounter Care Teams Law Firm Receptionist Relationship Specialty Start Date End Date Abiodun Segura II, MD [address] [place] [phone] PCP - General FAMILY PRACTICE 03/09/21 documented as of this encounter
--- OUTSIDE RECORDS SUMMARY | 2024-03-02 22:29 | XMS_ITS | Encounter Summary ---
Author Organization [facility] Address [address] [place] [address]. [place] [address] [place] [address] Care Team Providers Care Supervisor Pairing And Inspecting Name Role Phone Cotlon SILVEIRA MD, Yasmin Rushing Primary Care Provider Reason for Visit * Reason Comments Follow Up Type 2 DM Encounter Details Date Type Department Care Team (Late st Contact Info) Description 04/20/2021 10:00 AM WOOD FURNITURE ASSEMBLER Office Visit [facility] Family Medicine [place] [address] [place] [phone] Yasmin Segura II, MD [address] [place], [place] [phone] Follow Up (Type 2 DM) Social History Tobacco Use Types Packs/Day Years [...] Coronavirus/COVID-19? No / Unsure 04/20/2021 9:45 AM WOOD FURNITURE ASSEMBLER documented as of this encounter Last Filed Vital Signs Vital Sign Reading Time Taken Comments Blood Pressure 130/80 04/20/2021 9:49 AM WOOD FURNITURE ASSEMBLER Pulse 88 04/20/2021 9:49 AM WOOD FURNITURE ASSEMBLER Temperature 36.8 ??C (98.3 ??F) 04/20/2021 9:49 AM CS T Respiratory Rate - - Oxygen Saturation 100% 04/20/2021 9:49 AM WOOD FURNITURE ASSEMBLER Inhaled Oxygen Concentration - - Weight 88.5 kg (195 lb) 04/20/2021 9:49 AM WOOD FURNITURE ASSEMBLER Height - - Body Mass Index 31.47 04/15/2021 4:29 PM WOOD FURNITURE ASSEMBLER documented in this encounter Functional Status * RETIRED Are you deaf or do you have serious difficulty hearing Answer Date of Assessment Author Status No 04/15/2021 11:33 PM WOOD FURNITURE ASSEMBLER Acti ve * RETIRED Are you blind or do you have serious difficulty seeing, even when wearing glasses? Answer Date of Assessment Author Status No 04/15/2021 11:33 PM WOOD FURNITURE ASSEMBLER Acti ve * Do you have serious [...] Notes * Yasmin Segura II, MD - 04/20/2021 10:00 AM CST Images from the original note were not included. [facility] [address] [address] OFFICE FOLLOW UP NOTE Encounter Date: 04/20/2021 Chief Complaint: Follow Up (Type 2 DM) History of Present Illness: 51-year-old female with history of type 2 diabetes, chronic right-sided low back pain, and idiopathic constipation here to follow-up after recent hospitalization for abdominal and back pain. She was found to have kidney stones at the time of admission and was seen by urology and they were determined to be nonobstructing. Patient also had acute kidney injury which was resolving at the time of disch arge. Patient's main complaint continues to be constipation secondary to his slow transit likely secondary to diabetic neuropathy and medication side effect. Here for evaluation and treatment recommendations. Review [...] skin weekly. ) 12 pen 3 ??? HUMALOG MIX 75/25 [...] mg by mouth nightly at bedtime. ??? Senna 8.6 MG tablet Take 2 tablets (17.2 mg total) by mouth 2 (two) times a day. 120 tablet 0 No current facility-administered medications for this visit. Allergies Allergen Reactions ??? Amoxicillin Rash ??? Penicillins Rash Objective: Filed Vitals: 04/20/21 0949 BP: 130/80 Pulse: 88 Temp: 98.3 ??F (36.8 ??C) TempSrc: Oral SpO2: 100% Weight: 88.5 kg (195 lb) Nursing note [...] General: Abdomen is flat. Bowel sounds are decreased. Palpations: Abdomen is soft. Tenderness: There is [...] performed during the hospital encounter of 04/15/21 XR CHEST PORTABLE Narrative EXAMINATION: CHEST X-RAY ONE VIEW EXAM TIME: 2219 hours COMPARISON: 12/13/2019. HISTORY: Preprocedural screening. FINDINGS: A single portable AP view of the chest is submitted for evaluation. The heart is within normal limits in size. Pulmonary vascularity is within normal limits. The lungs are well expanded without focalairspace consolidation. No pleural effusions. No pneumothorax. Impression IMPRESSION: No acute cardiopulmonary process. Referred By: Interpreted By: Cem Caballero MD, 04/15/2021 10:33 PM CBC W/DIFF AUTOMATED Result Value Ref [...] COLOR (U) LIGHT YELLOW TRANSPARENCY CLEAR Specific Dairy (U) 1.012 1.001 - 1.030 U PH [...] Afr. Amer. 72 (L) >90 ML/MIN/1.73 M2 CBC W/DIFF AUTOMATED Result Value Ref Range WBC 7.3 4.5 - 11.0 x10'3/uL RBC 3.79 (L) 4.20 - 5.40 x10'6/uL HGB 11.6 (L) 12.0 - 16.0 G/DL HCT 35.0 (L) 38.0 - 48.0 % MCV 92.3 81.0 - 99.0 FL MCH 30.6 27.0 - 31.0 PG MCHC 33.1 32.0 - 36.0 G/DL RDW 12.5 11.5 - 14.5 % PLT 265 130 - 400 x10'3/uL MPV 11.5 9.3 - 12.2 FL DIFFERENTIAL TYPE AUTOMATED DIFFERENTIAL NEUTROPHILS 52.0 % LYMPHOCYTES 40.9 % MONOCYTES 5.0 % EOSINOPHILS 1.5 % BASOPHILS 0.5 % IMMATURE GRANS 0.1 % ABS. NEUTROPHILS TOTAL 3.81 1.80 - 7.70 x10'3/uL ABS. LYMPHOCYTES 3.00 1.00 - 4.80 x10'3/uL ABS. MONOCYTES 0.37 0.24 - 0.86 x10'3/uL ABS. EOSINOPHILS 0.11 0.04 - 0.36 x10'3/uL ABS. BASOPHILS 0.04 0.01 - 0.08 x10'3/uL ABS. IMMATURE GRANULOCYTES 0.01 0.00 - 0.49 x10'3/uL COMPREHENSIVE METABOLIC PANEL Result Value Ref Range GLUCOSE 194 (H) 70 - 99 MG/DL BUN 18 7 - 18 MG/DL CREATININE S/P/B 1.22 (H) 0.55 - 1.02 MG/DL SODIUM 136 136 - 145 MMOL/L POTASSIUM 4.3 3.5 - 5.1 MMOL/L CHLORIDE S/P/B 105 100 - 108 MMOL/L CO2 25.7 21 - 32 MMOL/L CALCIUM 9.0 8.5 - 10.1 MG/DL BILIRUBIN TOTAL S/P/B 0.3 0.2 - 1.2 MG/DL TOTAL PROTEIN S/P/B 7.9 6.4 - 8.2 G/DL ALBUMIN S/P/B 3.1 (L) 3.4 - 5.0 G/DL AST 19 15 - 37 U/L ALT 25 14 - 55 U/L ALKALINE PHOSPHATASE S/P/B 122 50 - 136 U/L ANION GAP 5.3 5 - 15 MMOL/L BUN CREATININE RATIO 14.8 6 - 26 A/G RATIO 0.6 (L) 1.0 - 2.0 RATIO eGFR Non-Afr. Amer. 52 (L) >90 ML/MIN/1.73 M2 eGFR Afr. Amer. 60 (L) >90 ML/MIN/1.73 M2 Inpatient Consult to Urology Narrative Douglas Paniagua MD 04/16/2021 10:46 AM Urologic Surgery Inpatient Consult Note Encounter Date: [...] emergency department for recommendations regarding CT findings. Patient presented to the emergency department last night 04/15/2021 with complaint of several weeks of bilateral right worse than left upper quadrant pain, constipation, nausea, belching with fetid odor. She reports no recent dysuria, urgency, colicky flank pain, [...] an obstructing stone in her hydronephrosis which is chronic appears stable. I do not appreciate any ureteral stones on this side. She has been previously managed by Dr. Lucero, She has had chronic dilation of the right kidney, recurrent UTIs. She has previously had nephrostomy tubes and stents placed. She did not tolerate these very well. Her hydronephrosis has been stable and [...] are unremarkable. Vitals Filed Vitals: 04/15/21 1629 04/15/21 2026 04/15/21 [...] are symmetric without nasal flaring or respiratory distress. No lip cyanosis. Eyes: Sclera anicteric. Cardiovascular: Peripheral [...] palpable lymphadenopathy. Laboratory: Recent Labs Lab 04/15/21 1720 04/16/21 0644 WBC 9.4 7.3 HGB 12.3 11.6* HCT 37.2* 35.0* Recent Labs Lab 04/13/21 1023 04/13/21 1023 04/15/21 1720 04/15/21202904/16/21 0644 CO2 25.6 < > 25.4 24.4 [...] Procedure Component Value Units Date/Time CULTURE URINE [[id number]] Collected: 04/15/21 172 Order Status: Completed Lab Status: In process Updated: 04/15/211808 Microbiology Results (last 14 days) Procedure Component Value Units Date/Time CULTURE URINE [[id number]] Collected: 04/15/21 1720 Order Status: Completed Lab Status: In process [...] measuring up to 9 mm. Ordered By: PETER CONDE Interpreted By: Mercy Irving MD, 04/15/2021 7:28 [...] status post 2 failed pyeloplasties That appears stable In terms of degree of dilation. Shehas a right lower pole stone that is nonobstructing. I do not appreciate obstructing stones on the left, she has a calcification in the retroperitoneum that appears to be outside of the lumen Of her urinary tract and likely within her gonadal vein. Further, if the patient had bilateral urinary obstruction, I would expect [...] has previously seen Dr. Lucero In our [place] office and if she would like to continue to follow with him she can, or if she would prefer follow-up here in [place], she can follow up in our office here contact info as below Douglas Paniagua M.D. [facility] [address] [place]???[facility] [address]???[place] [address] CT ABD+PEL W IV CON ONLY Narrative PROCEDURE: CT ABD+PEL W CON HISTORY: Acute [...] (S/I) = series number / image number Impression IMPRESSION: 1. No acute abnormality is seen within the abdomen or pelvis. 2. 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 3. Bilateral obstructing renal stones measuring up to 9 mm. Ordered By: PETER CONDE Interpreted By: Mercy Irving MD, 04/15/2021 7:28 PM POCT glucose Result Value Ref Range GLUCOSE POC 197 (H) 70 - 99 mg/dL POCT glucose Result Value Ref Range GLUCOSE POC 155 (H) 70 - 99 mg/dL ECG 12 lead Narrative [address] Test Date: 2021-04-15 Pat Name: LENA YOUNGBLOOD Department: Room: [facility] [place] [place] Gender: Female Head Of Ict: EV : 1970 Requested By: WANDA MERCER Order Number: [id number] Reading MD: Reynaldo Leonardo Measurements Intervals [place] Rate: 92 P: 38 ND: 174 QRS: 11 QRSD: 89 T: 22 QT: 349 QTc: 434 Interpretive Statements SINUS RHYTHM NONSPECIFIC T-WAVE ABNORMALITY Compared to ECG 12/13/2019 05:09:11 Sinus tachycardia no longer present T-wave abnormality still present Other ischemic changes, not STEMI Christ Coombs M.D. CRITICAL ALERT ISSUED ON 04-15-2021 23:46:05 FURNITURE ASSEMBLER CULTURE URINE Specimen: URINE, CLEAN CATCH Result Value Ref Range Spec. Description URINE CLEAN CATCH Special Requests: NO SPECIAL REQUEST Culture Result: NO GROWTH 2 DAYS Counseling The patient and patient's family was counseled regarding instructions for management, patient and family education and importance of compliance with treatment. Assessment: 1. Type 2 diabetes mellitus with diabetic neuropathic arthropathy, with long- term current use of insulin ([facility]) 2. Chronic idiopathic constipation linaCLOtide 145 MCG capsule 3. HEMA (acute kidney injury) ([facility]) COMPREHENSIVE METABOLIC PANEL 4. Renal stones Plan: Orders Placed This Encounter Medications ??? linaCLOtide 145 MCG capsule 1. Type 2 diabetes mellitus with diabetic neuropathic arthropathy, with long- term current use of insulin ([facility]) Patient's diabetes has been under better control recently. We will continue current medications without adjustment at this time. 2. Chronic idiopathic constipation Discussed treatment options for her multifactorial constipation. Stool softeners and bulking agentswere not helping secondary to slow transit. Patient may try senna or Linzess which I ordered today.Patient to follow-up with me in 1 to 2 weeks to review efficacy. - linaCLOtide 145 MCG capsule; Take 1 capsule (145 mcg total) by mouth every morning before breakfast. Take on empty stomach at least 30 minutes prior to the first meal of the day. Swallow whole. Do not open capsule or chew. Dispense: 30 capsule; Refill: 5 3. HEMA (acute kidney injury) ([facility]) Patient had a resolving HEMA at the time of discharge. We will check metabolic panel for trend. - COMPREHENSIVE METABOLIC PANEL; Future 4. Renal stones Patient has a history of nonobstructing kidney stones. No treatment needed at this time; however, we will have a low threshold for urology follow-up should symptoms recur. There are no discontinued medications. YASMIN SEGURA MD 04/20/2021 Portions of this note were dictated using [employer] speech recognition software. Occasional wrong wordor sound-alike substitutions may have occurred due to the inherent limitations of voice recognition software. Please read the chart carefully and recognize, using context, where the substitutions may have occurred. FURNITURE ASSEMBLER documented in this encounter Plan of Treatment Upcoming Encounters Date Type Department Care Team (Late st Contact Info) Description 03/14/2024 11:45 AM WOOD FURNITURE ASSEMBLER Office Visit [facility] [phone] Marvin Mckeon MD Three [facility] [address] [place], [place] [phone] 03/20/2024 11:30 AM WOOD FURNITURE ASSEMBLER Office Visit [facility] Family Medicine - [place] [address] [place] [address] Yasmin Segura II, MD [address] [place], [place] [phone] documented as of this encounter Results * (ABNORMAL) COMPREHENSIVE METABOLIC PANEL (04/29/2021 2:15 PM WOOD FURNITURE ASSEMBLER) GLUCOSE 219(H) 70 - 99 MG/DL 04/29/2021 3:02 PM [facility] BUN 18 7 - 18 MG/DL 04/29/2021 3:02 PM [facility] CREATININE S/P/B 1.14(H) 0.55 - 1.02 MG/DL 04/29/2021 3:02 PM WOOD FURNITURE ASSEMBLER [facility] SODIUM S/P/B 139 136 - 145 MMOL/L 04/29/2021 3:02 PM [facility] POTASSIUM S/P/B 4.5 3.5 - 5.1 MMOL/L 04/29/2021 3:02 PM [facility] CHLORIDE S/P/B 107 100 - 108 MMOL/L 04/29/2021 3:02 PM WOOD FURNITURE ASSEMBLER [facility] CO2 29.1 21 - 32 MMOL/L 04/29/2021 3:02 PM [facility] CALCIUM S/P/B 9.9 8.5 - 10.1 MG/DL 04/29/2021 3:02 PM [facility] BILIRUBIN TOTAL S/P/B 0.3 0.2 - 1.2 MG/DL 04/29/2021 3:02 PM [facility] Comment: THIS ASSAY IS NOT RECOMMENDED FOR PATIENTS UNDERGOING TREATMENT WITH ELTROMBOPAG DUE TO THE POTENTIAL FOR FALSELY ELEVATED RESULTS. TOTAL PROTEIN S/P/B 8.5(H) 6.4 - 8.2 G/DL 04/29/2021 3:02 PM [facility] ALBUMIN S/P/B 3.4 3.4 - 5.0 G/DL 04/29/2021 3:02 PM [facility] AST 14(L) 15 - 37 U/L 04/29/2021 3:02 PM [facility] ALT 24 14 - 55 U/L 04/29/2021 3:02 PM [facility] ALKALINE PHOSPHATASE S/P/B 127 50 - 136 U/L 04/29/2021 3:02 PM [facility] ANION GAP 2.9(L) 5 - 15 MMOL/L 04/29/2021 3:02 PM [facility] BUN CREATININE RATIO 15.8 6 - 26 04/29/2021 3:02 PM [facility] A/G RATIO 0.7(L) 1.0 - 2.0 RATIO 04/29/2021 3:02 PM [facility] EGFR NON-AFR. AMER. 56(L) >90 ML/MIN/1.7 3 M2 04/29/2021 3:02 PM [facility] EGFR AFR. AMER. 65(L) >90 ML/MIN/1.7 3 M2 04/29/2021 3:02 PM [facility] Comment: NOTE: eGFR is not calculated for patients <18 years of age. This is an estimated GFR (CKD EPI) and should not be used for calculating drug doses. 04/29/2021 2:15 PM WOOD FURNITURE ASSEMBLER Yasmin Segura II, MD LABORATORY Final R esult [facility] [address] [place] [address], [place] [phone] documented in this encounter Visit Diagnoses Diagnosis Type 2 diabetes mellitus with diabetic neuropathic arthropathy, with long-term current use of insulin ([facility])- Primary Chronic idiopathic constipation Unspecified constipation HEMA (acute kidney injury) ([facility]) Acute kidney failure, unspecified Renal stones Calculus of kidney documented in this encounter Additional Health Concerns Assessment Noted Time PHQ-9 Depression Total Score: 0 03/08/19 9:30 AM WOOD FURNITURE ASSEMBLER documented as of this encounter Care Teams Supervisor Pairing And Inspecting Relationship Specialty Start Date End Date Yasmin Segura II, MD [address] [place] [address] PCP - General FAMILY PRACTICE 03/09/21 documented as of this encounter
--- OUTSIDE RECORDS SUMMARY | 2024-03-02 22:29 | XMS_ITS | Encounter Summary ---
Author Organization [facility] Address [address] [place] [address]. [place] [address] [place] [address] Care Team Providers Care Embalmer Apprentice Name Role Phone Cloton SILVEIRA MD, Abiodun Rushing Primary Care Provider Reason for Visit * Reason Onset Date Comments Referral Request 06/14/2021 Encounter Details Date Type Department Care Team (Late st Contact Info) Description 06/14/2021 Telephone [facility] Family Medicine - [place] [address] [place] [address] Abiodun Segura II, MD 100 [place] [address] Referral Request Social History Tobacco Use Types Packs/Day [...] Assessment Author Status No 04/15/2021 11:33 PM PRESS OPERATOR ASSISTANT Acti ve * RETIRED Are you blind or do you have serious difficulty seeing, even when wearing glasses? Answer Date of Assessment Author Status No 04/15/2021 11:33 PM PRESS OPERATOR ASSISTANT Acti ve * Do you have serious [...] documented in this encounter Progress Notes * Faith Diaz MA - 06/14/2021 5:03 PM CDT Pt informed and will call back to schedule an apt * Shira Shi PA-C - 06/14/2021 4:59 PM CDT Can she come in for a visit? Maybe we can give her something to take. * Sydney Cobos MA - 06/14/2021 3:20 PM CDT Will you refer? * Hi Barrera - 06/14/2021 2:47 PM CDT Pt called in requesting a referral to be seen by a sustainability manager in the area, states her face has broke out really bad due to wearing mask also says the pimple size bumps itches. Pt has [facility] insurance please call pt @ [phone] documented in this encounter Plan of Treatment Upcoming Encounters Date Type Department Care Team (Late st Contact Info) Description 03/14/2024 11:45 AM PRESS OPERATOR ASSISTANT Office Visit [facility] [phone] Marvin Mckeon MD [facility] [address] [place] [address] 03/20/2024 11:30 AM PRESS OPERATOR ASSISTANT Office Visit [facility] Family Medicine - [place] [address] [place] [phone] Abiodun Segura II, MD [address] [place], [place] [phone] documented as of this encounter Visit Diagnoses Not on filedocumented in this encounter Additional Health Concerns Assessment Noted Time PHQ-9 Depression Total Score: 0 03/08/19 9:30 AM PRESS OPERATOR ASSISTANT documented as of this encounter Care Teams Embalmer Apprentice Relationship Specialty Start Date End Date Abiodun Segura II, MD [address] [place] [phone] PCP - General FAMILY PRACTICE 03/09/21 documented as of this encounter
--- OUTSIDE RECORDS SUMMARY | 2024-03-02 22:29 | XMS_ITS | Encounter Summary ---
Author Organization [facility] Address [address] [place] [address]. [place] [address] [place] [address] Care Team Providers Care Special Effects Makeup Artist Name Role Phone Colton SILVEIRA MD, Abiodun Rushing Primary Care Provider Reason for Visit * Reason Onset Date Comments Pre-visit Gap Closure 04/13/2021 Encounter Details Date Type Department Care Team (Late st Contact Info) Description 04/13/2021 Telephone [facility] Family Medicine - [place] [address] [place] [address] Abiodun Segura II, MD [address] [place] [address] Pre-visit Gap Closure Social History [...] Coronavirus/COVID-19? No / Unsure 04/13/2021 9:54 AM PRACTICE MANAGER documented as of this encounter Functional [...] Progress Notes * Nida Keating CMA - 04/13/2021 2:04 PM CST Contacted patient for pre-visit gap closure. I am calling this patient as a patient advocate for the [employer] Work Program. My direct extension is [phone]. You can also reach me at: [phone] ([facility]) OR [phone] ([facility]) TICE MANAGER documented in this encounter Plan of Treatment Upcoming Encounters Date Type Department Care Team (Late st Contact Info) Description 03/14/2024 11:45 AM PRACTICE MANAGER Office Visit [facility] [address] Marvin Mckeon MD Three [facility] [address] [place] [address] 03/20/2024 11:30 AM PRACTICE MANAGER Office Visit [facility] Family Medicine - [place] [address] [place] [phone] Abiodun Segura II, MD [address] [place] [address] documented as of this encounter Visit Diagnoses Not on filedocumented in this encounter Additional Health Concerns Assessment Noted Time PHQ-9 Depression Total Score: 0 03/08/19 9:30 AM PRACTICE MANAGER documented as of this encounter Care Teams Special Effects Makeup Artist Relationship Specialty Start Date End Date Abiodun Segura II, MD [address] [place] [address] PCP - General FAMILY PRACTICE 03/09/21 documented as of this encounter
--- OUTSIDE RECORDS SUMMARY | 2024-03-02 22:29 | XMS_ITS | Encounter Summary ---
Author Organization [facility] Address [address] [place] [address]. [place] [address] [place] [address] Care Team Providers Care Inseam Trimmer Name Role Phone Jarred Rod MD Primary Care Provider Unav ailable Encounter Details Date Type Department Care Team (Late st Contact Info) Description 02/21/2021 Therapy Plan [facility] Therapy [address] [place], [place] [phone] Tracey Walker, PT [place], [place] [phone] Social History Tobacco Use Types Packs/Day Years [...] COVID-19? No / Unsure 01/24/2021 11:10 AM NIGHTMAN documented as of this encounter Functional Status [...] AM CDT TottyJacintaa A, R N Active * Because of a physical, mental, or emotional condition, do you have difficulty doing errands alone such as visiting a doctor's office or shopping? Answer Date of Assessment Author Status Yes 08/12/2019 3:00 AM CDT TottyShelby, R N Active documented as of this encounter Mental Status * Because of a physical, mental, or emotional condition, do you have serious difficulty concentrating, remembering, or making decisions? Answer Entry Date Author Status No 08/12/2019 3:00 AM CDT TottyJacintaa A, R N Active documented in this encounter Progress Notes * Tracey Walker, PT - 02/21/2021 8:12 AM CST Lena Kay Fredis 1970 Dx: Low back pain and gait abnormality The patient was evaluated for back pain on12/30/20. A plan of care was established but the patient failed to return for follow up appointments. DC from OPPT at this time due to lack of follow up. We will be happy to assist with a new referral if the patient chooses to return. Tracey Walker PT TMAN documented in this encounter Plan of Treatment Upcoming Encounters Date Type Department Care Team (Late st Contact Info) Description 03/14/2024 11:45 AM NIGHTMAN [facility] [place] [phone] Marvin Mckeon MD Three [facility] [address] [place] [address] 03/20/2024 11:30 AM NIGHTMAN Office Visit [facility] Family Medicine - [place] [address] [place] [phone] Abiodun Segura II, MD 100 [place] [address] documented as of this encounter Visit Diagnoses Not on filedocumented in this encounter Additional Health Concerns Assessment Noted Time PHQ-9 Depression Total Score: 0 10/09/19 21 10:02 AM CDT documented as of this encounter Care Teams Inseam Trimmer Relationship Specialty Start Date End Date Jarred Rod MD PCP - General FAMILY PRACTICE 01/17/21 03/08/21 documented as of this encounter
--- OUTSIDE RECORDS SUMMARY | 2024-03-02 22:29 | XMS_ITS | Encounter Summary ---
Author Organization [facility] Address [address] [place] [address]. [place] [address] [place] [address] Care Team Providers Care Learning And Development Analyst Name Role Phone Colton SILVEIRA MD, Abiodun Rushing Primary Care Provider Reason for Visit * Reason Onset Date Comments UTI 06/20/2021 Encounter Details Date Type Department Care Team (Late st Contact Info) Description 06/20/2021 Telephone [facility] Family Medicine - [place] [address] [place] [address] Abiodun Segura II, MD 100 [place] [address] UTI Social History Tobacco Use [...] Assessment Author Status No 04/15/2021 11:33 PM CIGARETTE MAKING MACHINE CATCHER Acti ve * RETIRED Are you blind or do you have serious difficulty seeing, even when wearing glasses? Answer Date of Assessment Author Status No 04/15/2021 11:33 PM CIGARETTE MAKING MACHINE CATCHER Acti ve * Do you have serious [...] st Contact Info) Description 03/14/2024 11:45 AM CIGARETTE MAKING MACHINE CATCHER Office Visit [facility] [phone] Marvin Mckeon MD Three [facility] [address] [place] [address] 03/20/2024 11:30 AM CIGARETTE MAKING MACHINE CATCHER Office Visit [facility] Family Medicine - [place] [address] [place] [phone] Abiodun Segura II, MD [address] [place] [address] documented as of this encounter Visit Diagnoses Diagnosis Acute cystitis without hematuria- Primary Acute cystitis Candidiasis of genitalia in female Candidiasis of vulva and vagina documented in this encounter Additional Health Concerns Assessment Noted Time PHQ-9 Depression Total Score: 0 03/08/19 9:30 AM CIGARETTE MAKING MACHINE CATCHER documented as of this encounter Care Teams Learning And Development Analyst Relationship Specialty Start Date End Date Abidoun Segura II, MD 100 [place] [address] PCP - General FAMILY PRACTICE 03/09/21 documented as of this encounter
--- OUTSIDE RECORDS SUMMARY | 2024-03-02 22:29 | XMS_ITS | Encounter Summary ---
Author Organization [facility] Address [address] [place] [address]. [place] [address] [place] [address] Care Team Providers Care Filenet P8 Developer Name Role Phone Jarred Rod MD Primary Care Provider Unav ailable Reason for Visit * Reason Onset Date Comments UTI 02/17/2021 Encounter Details Date Type Department Care Team (Late st Contact Info) Description 02/17/2021 Telephone [facility] Family Medicine - [place] [address] Jarred Rod MD UTI Social History Tobacco Use Types Packs/Day [...] COVID-19? No / Unsure 01/24/2021 11:10 AM SOLUTIONS SPECIALIST documented as of this encounter Functional Status [...] Notes * Abiodun Segura II, MD - 02/17/2021 4:10 PM CST Patient called. Will treat with Cipro as this covered her infection well previously. Follow up as scheduled on Feb. TIONS SPECIALIST * Sydney Cobos MA - 02/17/2021 4:01 PM CST Will you prescribe something for patient? Please advise TIONS SPECIALIST * Hi Barrera - 02/17/2021 3:47 PM CST Pt Lena Mcneal called stating she has another UTI and wants another prescription for UTI called in she doesn't rember the name called in at [facility] in [place] TIONS SPECIALIST documented in this encounter Plan of Treatment Upcoming Encounters Date Type Department Care Team (Late st Contact Info) Description 03/14/2024 11:45 AM SOLUTIONS SPECIALIST Office Visit [facility] [address] Marvin Mckeon MD Three [facility] [address] [place] [address] 03/20/2024 11:30 AM SOLUTIONS SPECIALIST Office Visit [facility] Family Medicine - [place] [address] [place] [phone] Abiodun Segura II, MD 100 [place], [place] [phone] documented as of this encounter Visit Diagnoses Diagnosis Cystitis- Primary Cystitis, unspecified Candidiasis of genitalia in female Candidiasis of vulva and vagina documented in this encounter Additional Health Concerns Assessment Noted Time PHQ-9 Depression Total Score: 0 10/09/19 21 10:02 AM CDT documented as of this encounter Care Teams Filenet P8 Developer Relationship Specialty Start Date End Date Jarred Rod MD PCP - General FAMILY PRACTICE 01/17/21 03/08/21 documented as of this encounter
--- OUTSIDE RECORDS SUMMARY | 2024-03-02 22:29 | XMS_ITS | Encounter Summary ---
Author Organization [facility] Address [address] [place] [address]. [place], [place] [address] [place] [address] Care Team Providers Care Basket Patcher Name Role Phone Colton SILVEIRA MD, Abiodun Rushing Primary Care Provider Encounter Details Date Type Department Care Team (Latest Contact Info) Description 04/15/2021 Travel Social History Tobacco Use Types Packs/Day [...] Coronavirus/COVID-19? No / Unsure 04/15/2021 11:21 PM SPARES SCHEDULER documented as of this encounter Functional Status * Question Answer Date of Assessment Author Status Do you have serious difficulty walking or climbing stairs? No 04/15/2021 11:33 PM SPARES SCHEDULER Erica Pope RN A ctive * Question Answer Date [...] Author Status No 08/12/2019 3:00 AM CDT TottyDevanteShelby A, R N Active * Do you have difficulty dressing or bathing? Answer Date of Assessment Author Status Yes 08/12/2019 3:00 AM CDT TottyDevanteShelby A, R N Active * Because of [...] Author Status No 08/12/2019 3:00 AM CDT TottyDevanteShelby A, R N Active documented in this encounter Plan of Treatment Upcoming Encounters Date Type Department Care Team (Late st Contact Info) Description 03/14/2024 11:45 AM SPARES SCHEDULER Office Visit [facility] [address] Marvin Mckeon MD Three [facility] [address] [place] [address] 03/20/2024 11:30 AM SPARES SCHEDULER Office Visit [facility] Family Medicine - [place] 100 [place] [phone] Abiodun Segura II, MD 100 [place] [address] documented as of this encounter Visit Diagnoses Not on filedocumented in this encounter Additional Health Concerns Assessment Noted Time PHQ-9 Depression Total Score: 0 03/08/19 9:30 AM SPARES SCHEDULER documented as of this encounter Care Teams Basket Patcher Relationship Specialty Start Date End Date Abiodun Segura II, MD [address] [place], [place] [phone] PCP - General FAMILY PRACTICE 03/09/21 documented as of this encounter
--- OUTSIDE RECORDS SUMMARY | 2024-03-02 22:30 | XMS_ITS | Encounter Summary ---
Author Organization [facility] Address [address] [place] [address]. [place], [place] [address] [place] [address] Care Team Providers Care Cad Design Engineer Name Role Phone Jarred Rod MD Primary Care Provider Unav ailable hSira Shi PA-C Primary Care Provider [phone] Jarred Rod MD Primary Care Provider Unav ailable Colton SILVEIRA MD, Abiodun L Primary Care Provider Jarred Rod MD Primary Care Provider Unav ailable Reason for Visit * Reason Comments CT (SCAN) Image (SCAN) Encounter Details Date Type Department Care Team (Late st Contact Info) Description 12/15/2019 Scan HEALTH INFO SRVCS Scanned, Documents CT (SCAN); Image (SCAN) Social History Tobacco Use Types Packs/Day [...] COVID-19? No / Unsure 01/24/2021 11:[address] SUPERVISOR OF ENGINES documented as of this encounter Functional Status [...] Author Status No 08/12/2019 3:00 AM CDT Totty Shelby A, R N Active * Do [...] Author Status No 08/12/2019 3:00 AM CDT Totty Shelby A, R N Active documented in this encounter Plan of Treatment Upcoming Encounters Date Type Department Care Team (Late st Contact Info) Description 03/14/2024 11:[address] SUPERVISOR OF ENGINES Office Visit [facility] [address] Marvin Mckeon MD Three [facility] [address] [place] [address] 03/20/2024 11:[address] SUPERVISOR OF ENGINES Office Visit [facility] Family Medicine - [place] 100 [place] [phone] Abiodun Segura II, MD [address] [place] [address] documented as of this encounter Procedures Procedure Name Priority Date/Time Associated Diagnosis Comments CT GENERIC 12/15/2019 IMAGE GENERIC 12/15/2019 documented in this encounter Results * IMAGE GENERIC (12/15/2019) Anatomical Region Laterality Modality Other 12/15/2019 Narrative 12/15/2019 Ordered by an unspecified provider. us Documents Scanned SCANNING Final Result * CT GENERIC (12/15/2019) Anatomical Region Laterality Modality Other 12/15/2019 Narrative 12/15/2019 Ordered by an unspecified provider. us Documents Scanned SCANNING Final Result documented in this encounter Visit Diagnoses Not on filedocumented in this encounter Additional Health Concerns Infection Onset Date Last Indicated Resolved Time COVID-19 Confirmed 12/13/2019 12/13/2019 0 12:[address] SUPERVISOR OF ENGINES documented as of this encounter Care Teams Cad Design Engineer Relationship Specialty Start Date End Date Jarred Rod MD PCP - General FAMILY PRACTICE 07/21/15 09/30/20 Shira Shi PA-C [address] [place] [address] PCP - General PHYSICIAN INKER MACHINE 10/01/20 11/17/20 Jarred Rod MD [address] [place] [address] PCP - General FAMILY PRACTICE 11/18/20 12/05/20 Abiodun Segura II, MD [address] [place] [address] PCP - General FAMILY PRACTICE 12/06/20 01/16/21 Jarred Rod MD 100 [place] [address] PCP - General FAMILY PRACTICE 01/17/21 03/08/21 documented as of this encounter
--- OUTSIDE RECORDS SUMMARY | 2024-03-02 22:30 | XMS_ITS | Encounter Summary ---
Author Organization [facility] Address [address] [place] [address]. [place], [place] [address] [place] [address] Care Team Providers Care Advance Scout Name Role Phone Jarred Rod MD Primary Care Provider Unav ailable Shira Shi PA-C Primary Care Provider [phone]- [phone] Jarred Rod MD Primary Care Provider Unav ailable Colton SILVEIRA MD, Abiodun L Primary Care Provider Jarred Rod MD Primary Care Provider Unav ailable Reason for Visit * Reason Comments Lab (SCAN) Encounter Details Date Type Department Care Team (Latest Contact Info) Description 01/02/2020 Scan [facility] INFO SRV[facility] Scanned, Documents Lab (SCAN) Social History Tobacco Use Types [...] COVID-19? No / Unsure 01/24/2021 11:10 AM CRIME PREVENTION WORKER documented as of this encounter Functional [...] st Contact Info) Description 03/14/2024 11:45 AM CRIME PREVENTION WORKER Office Visit [facility] [phone] Marvin Mckeon MD Three [facility] [address] [place], [place] [phone] 03/20/2024 11:30 AM CRIME PREVENTION WORKER Office Visit [facility] Family Medicine - [place] [phone] Abiodun Segura II, MD [address] [place] [address] documented as of this encounter Procedures Procedure Name Priority Date/Time Associated Diagnosis Comments OUTSIDE LAB (SCAN ORDER) 01/02/2020 documented in this encounter Results * OUTSIDE LAB (SCAN) (01/02/2020) 01/02/2020 Narrative 01/02/2020 Ordered by an unspecified provider. us Documents Scanned SCANNING Final Result documented in this encounter Visit Diagnoses Not on filedocumented in this encounter Additional Health Concerns Infection Onset Date Last Indicated Resolved Time COVID-19 Confirmed 12/13/2019 12/13/2019 0 12:34 AM CRIME PREVENTION WORKER documented as of this encounter Care Teams Advance Scout Relationship Specialty Start Date End Date Jarred Rod MD PCP - General FAMILY PRACTICE 07/21/15 09/30/20 Shira Shi PA-C [address] [place] [address] PCP - General PHYSICIAN STEWARD/STEWARDESS RAILROAD DINING CAR 10/01/20 11/17/20 Jarred Rod MD [address] [place] [address] PCP - General FAMILY PRACTICE 11/18/20 12/05/20 Abiodun Segura II, MD [address] [place] [address] PCP - General FAMILY PRACTICE 12/06/20 01/16/21 Jarred Rod MD [address] [place] [address] PCP - General FAMILY PRACTICE 01/17/21 03/08/21 documented as of this encounter
--- OUTSIDE RECORDS SUMMARY | 2024-03-02 22:30 | XMS_ITS | Encounter Summary ---
Author Organization [facility] Address [address] [place] [address]. 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 Role Phone Jarred Rod MD Primary Care Provider Unav ailable Reason for Referral * Imaging (Emergency) - Closed Specialty Diagnoses / Procedures Referred By Lyla chaney Referred To Contact RADIOLOGY Procedures CT ABD+PEL W IV CON ONLY June Caputo, SUSAN Phone: tel: fax: Referral ID Status Reason Start Date Expiration Date Visits Re quested Visits Authorized [id number] Closed 09/11/2020 10/12/2021 1 1 Reason for Visit * Reason Comments Flank Pain Vaginal Discharge Foot Pain Encounter Details Date Type Department Care Team (Late st Contact Info) Description 09/11/2020 7:24 PM CDT - 09/11/2020 11:22 PM CDT Emergency [facility] Emergency Room [place], [place] [id number] June Caputo NP [address] [id number] Flank Pain; Vaginal Discharge; Foot Pain Discharge Disposition: Home or Self Care [...] have Coronavirus / COVID-19? No / Unsure 09/11/2020 6:50 PM CDT documented as of this encounter Last Filed Vital Signs Vital Sign Reading Time Taken Comments Blood Pressure 176/91 09/11/2020 9:49 PM CDT Pulse 81 09/11/2020 9:49 PM CDT Temperature 36.6 ??C (97.9 ??F) 09/11/2020 7:14 PM CD T Respiratory Rate 18 09/11/2020 9:49 PM CDT Oxygen Saturation 98% 09/11/2020 9:49 PM CDT Inhaled Oxygen Concentration - - Weight 90.4 kg (199 lb 4.7 oz) 09/11/2020 7:14 P M CDT Height 167.6 cm (5' 6 ) 09/11/2020 7:14 PM CDT Body Mass Index 32.17 09/11/2020 7:14 PM CDT documented in this encounter Functional [...] R N Active documented in this encounter Discharge Instructions * Discharge Instructions* June Caputo NP - 09/11/2020 10:44 PM CDT Use antibiotics as directed until completed (treats urine infection and skin infection) Be sure to follow up with your foot cutter as well * Attachments The following attachments cannot be sent through Care Everywhere. * Urinary Tract Infection Discharge Instructions, Adult (Citizen Of [place]) * Vaginitis (Citizen [place]) documented in this encounter Medications at Time of Discharge cephALEXin (KEFLEX) 500 MG capsule Take 1 capsule (500 mg total) by mouth 3 (three) times daily for 10 days. 30 capsule 1 09/22/19 21 cyclobenzaprine 5 MG tablet Take 5 mg by mouth 3 (three) times daily as needed. 0 11/19/19 21 docusate sodium 100 MG capsule Take 1 capsule (100 mg total) by mouth 2 (two) times daily. 30 capsule 0 11/19/19 21 HUMALOG MIX 75/25 (75-25) 100 UNIT/ML Suspension Take 55 units in AM and 50 units PM, this should be titrated depending on your blood sugar numbers. 1 vial 1 7 05/17/19 22 hydrochlorothiazide 25 MG tablet Take 25 mg by mouth nightly. 12/07/19 21 HYDROcodone-acetami nophen 5-325 MG tabletIndications:A cute Pain < 7 Day Supply Take 1-2 tablets by mouth every 6 (six) hours as needed for Pain. Indications: Acute Pain < 7 Day Supply For Moderate Pain 10 tablet 0 11/19/19 21 HYDROcodone-acetami nophen 5-325 MG tabletIndications:A cute Pain < 7 Day Supply Take 1-2 tablets by mouth every 6 (six) hours as needed. Indications: Acute Pain < 7 Day Supply 20 tablet 0 11/19/19 21 lisinopril 40 MG tablet Take 40 mg by mouth nightly. 7 06/01/19 22 metoprolol tartrate 50 MG tablet Take 50 mg by mouth 2 (two) times a day. 3 9 09/25/19 21 metroNIDAZOLE (METROGEL VAGINAL) 0.75 % vaginal gel Place vaginally 2 (two) times daily for 7 days. 70 g 1 09/19/19 21 nitrofurantoin 50 MG capsule Take 50 mg by mouth see administration instructions. Take 50mg the same day or early the day after you have intercourse 1 11/19/19 21 nitroglycerin 0.[address] 0.4 mg under the tongue every 5 (five) minutes as needed. FOR CHEST PAIN DO NOT EXCEED A TOTAL OF 3 DOSES IN 15 MINUTES 1 12/17/19 22 ondansetron 4 MG disintegrating tablet Take 1 tablet (4 mg total) by mouth every 8 (eight) hours as needed for Nausea. 20 tablet 0 11/19/19 21 simvastatin 40 MG tablet Take 40 mg by mouth nightly at bedtime. 7 07/12/19 22 traMADol 50 MG tabletIndications:A cute Pain < 7 Day Supply Take 1 tablet (50 mg total) by mouth every 8 (eight) hours as needed. Indications: Acute Pain < 7 Day Supply 20 tablet 1 09/22/19 21 TRULICITY 1.5 MG/0.5ML Solution Pen-injector Inject 1.5 mg into the skin every 7 days. INJECT ON SUNDAY 0 9 12/24/19 21 documented as of this encounter ED Notes * June Caputo NP - 09/11/2020 7:18 PM CDT Emergency Department Note Chief Complaint Chief Complaint Patient presents with ??? Flank Pain ??? Vaginal Discharge ??? Foot Pain History of Present Illness 50 yo male with PMH of diabetes Charcot foot, arthritis neuropathy hypertension hyperlipidemia blocked right kidney disorder, UTI and poor vision, with a complaint of low back aching and she wiped the blood when she went to urinate today. She also complains of loss of nail on her right great toe. She took a shower this am and noted the nail was missing which is how infection on the left foot started last year. Denies known injury to the foot. She went to the urgent care and was sent to the emergency room for further evaluation. She reports right-sided flank pain which has been ongoing since Sunday. She noted a white discharge with some pink when she wiped after urinating. No history of kidney stones but the provider wanted her checked, as she has a history of kidney problems. Did take diflucan with no relief. Takes macrobid tablet daily (cheryl after intercourse) Denies any fever or chills Does not always wear her foot wear for Charcot foot Medical History ALLERGIES: Allergies Allergen Reactions ??? Amoxicillin Rash ??? Penicillins Rash MEDICATIONS: Prior to Admission medications Medication Sig Start Date End Date Taking? Authorizing Provider cephALEXin (KEFLEX) 500 MG capsule Take 1 capsule (500 mg total) by mouth 3 (three) times daily for10 days. 09/11/20 09/21/20 Yes June Caputo NP metroNIDAZOLE (METROGEL VAGINAL) 0.75 % vaginal gel Place vaginally 2 (two) times daily for 7 days.09/11/20 09/18/20 Yes June Caputo NP traMADol 50 MG tablet Take 1 tablet (50 mg total) by mouth every 8 (eight) hours as needed. Indications: Acute Pain < 7 Day Supply 09/11/20 09/21/20 Yes June Caputo NP cyclobenzaprine 5 MG tablet Take 5 mg by mouth 3 (three) times daily as needed. 09/22/19 Doc Abstract docusate sodium 100 MG capsule Take 1 capsule (100 mg total) by mouth 2 (two) times daily. Patient taking differently: Take 100 mg by mouth 2 (two) times daily as needed. 05/01/19 Kvng Lewis MD HUMALOG MIX 75/25 (75-25) 100 UNIT/ML Suspension Take 55 units in AM and 50 units PM, this should be titrated depending on your blood sugar numbers. Patient taking differently: Inject 55-65 Units into the skin see administration instructions. Take 65 units in AM and 55 units PM, this should be titrated depending on your blood sugar numbers. 02/08/17 Imani Soria MD hydrochlorothiazide 25 MG tablet Take 25 mg by mouth nightly. Doc Abstract HYDROcodone-acetaminophen 5-325 MG tablet Take 1-2 tablets by mouth every 6 (six) hours as needed for Pain. Indications: Acute Pain < 7 Day Supply For Moderate Pain 11/05/19 Edson Chappell MD HYDROcodone-acetaminophen 5-325 MG tablet Take 1-2 tablets by mouth every 6 (six) hours as needed. Indications: Acute Pain < 7 Day Supply 11/12/19 Kvng Lewis MD lisinopril 40 MG tablet Take 40 mg by mouth nightly. 11/03/16 Doc Abstract metoprolol tartrate 50 MG tablet Take 50 mg by mouth 2 (two) times a day. 06/14/18 Doc Abstract nitrofurantoin 50 MG capsule Take 50 mg by mouth see administration instructions. Take 50mg the same day or early the day after you have intercourse 07/14/20 Doc Abstract nitroglycerin 0.[address] 0.4 mg under the tongue every 5 (five) minutes as needed. FOR CHEST PAIN DO NOT EXCEED A TOTAL OF 3 DOSES IN 15 MINUTES 07/07/20 Doc Abstract ondansetron 4 MG disintegrating tablet Take 1 tablet (4 mg total) by mouth every 8 (eight) hours asneeded for Nausea. 12/13/19 Hubert Guzman MD simvastatin 40 MG tablet Take 40 mg by mouth nightly at bedtime. 11/03/16 Doc Abstract TRULICITY 1.5 MG/0.5ML Solution Pen-injector Inject 1.5 mg into the skin every 7 days. INJECT ON Sunday10/07/18 Doc Abstract PAST MEDICAL HISTORY: Past Medical History: Diagnosis [...] Used Substance Use Topics ??? Alcohol use: No ??? Drug use: No Review of Systems Review of Systems Constitutional: Negative for chills and fever. HENT: Negative for sore throat. Eyes: Negative for visual disturbance. Respiratory: Negative for cough and shortness of breath. Cardiovascular: Negative for chest pain. Gastrointestinal: Negative for abdominal pain, constipation, diarrhea and nausea. Right flank pain Genitourinary: Positive for vaginal discharge. Negative for difficulty urinating, dysuria, genital sores and hematuria. Skin: Negative for rash. Right great toe/ nail missing Neurological: Negative for light-headedness and headaches. Psychiatric/Behavioral: Negative for decreased concentration. All other systems reviewed and are negative. Physical Exam Filed Vitals: 09/11/20 1914 09/11/20 1917 09/11/20 2149 BP: (!) 209/94 (!) 176/91 Pulse: 82 81 Resp: 16 18 Temp: 97.9 ??F (36.6 ??C) TempSrc: Temporal SpO2: 98% 98% Weight: 90.4 kg (199 lb 4.7 oz) Height: 5' 6 (1.676 m) Physical Exam Constitutional: She is oriented to person, place, and time. She appears well- developed and well-nourished. No distress. HENT: Head: Normocephalic. Eyes: Pupils are equal, round, and reactive to light. Cardiovascular: Normal rate, regular rhythm, normal heart sounds and intact distal pulses. No murmur heard. Pulmonary/Chest: Effort normal and breath sounds normal. Abdominal: Soft. Bowel sounds are normal. There is no abdominal tenderness. Musculoskeletal: General: No tenderness or edema. Cervical back: Neck supple. Comments: Right CVA tenderness. Neurological: She is alert and oriented to person, place, and time. Skin: Skin is warm and dry. No pallor. Right great toe nail is loose and nail removed easily with gentle traction. No loosing at nail bed and is dry. No odor. Psychiatric: She has a normal mood and affect. Her behavior is normal. Judgment and thought contentnormal. Vitals reviewed. Diagnostic Studies / Procedures ELECTROCARDIOGRAMS: No results found for this visit on 09/11/20. LABORATORY STUDIES: Results for orders placed or performed during the hospital encounter of 09/11/20 CBC W/DIFF AUTOMATED Result Value Ref Range WBC 14.1 (H) 4.5 - 11.0 x10'3/uL RBC 3.85 (L) 4.20 - 5.40 x10'6/uL HGB 11.7 (L) 12.0 - 16.0 G/DL HCT 34.6 (L) 38.0 - 48.0 % MCV 89.9 81.0 - 99.0 FL MCH 30.4 27.0 - 31.0 PG MCHC 33.8 32.0 - 36.0 G/DL RDW 13.2 11.5 - 14.5 % PLT 267 130 - 400 x10'3/uL MPV 11.3 9.3 - 12.2 FL DIFFERENTIAL TYPE AUTOMATED DIFFERENTIAL NEUTROPHILS 70.5 % LYMPHOCYTES 23.7 % MONOCYTES 4.4 % EOSINOPHILS 0.6 % BASOPHILS 0.4 % IMMATURE GRANS 0.4 % ABS. NEUTROPHILS TOTAL 9.94 (H) 1.80 - 7.70 x10'3/uL ABS. LYMPHOCYTES 3.34 1.00 - 4.80 x10'3/uL ABS. MONOCYTES 0.62 0.24 - 0.86 x10'3/uL ABS. EOSINOPHILS 0.09 0.04 - 0.36 x10'3/uL ABS. BASOPHILS 0.05 0.01 - 0.08 x10'3/uL ABS. IMMATURE GRANULOCYTES 0.06 0.00 - 0.49 x10'3/uL COMPREHENSIVE METABOLIC PANEL Result Value Ref Range GLUCOSE 197 (H) 70 - 99 MG/DL BUN 13 7 - 18 MG/DL CREATININE S/P/B 0.93 0.55 - 1.02 MG/DL SODIUM 137 136 - 145 MMOL/L POTASSIUM 3.8 3.5 - 5.1 MMOL/L CHLORIDE S/P/B 105 100 - 108 MMOL/L CO2 27.0 21 - 32 MMOL/L CALCIUM 9.0 8.5 - 10.1 MG/DL BILIRUBIN TOTAL S/P/B 0.4 0.2 - 1.2 MG/DL TOTAL PROTEIN S/P/B 8.8 (H) 6.4 - 8.2 G/DL ALBUMIN S/P/B 3.3 (L) 3.4 - 5.0 G/DL AST 12 (L) 15 - 37 U/L ALT 21 14 - 55 U/L ALKALINE PHOSPHATASE S/P/B 142 (H) 50 - 136 U/L ANION GAP 5.0 5 - 15 MMOL/L BUN CREATININE RATIO 14.0 6 - 26 A/G RATIO 0.6 (L) 1.0 - 2.0 RATIO eGFR Non-Afr. Amer. 72 (L) >90 ML/MIN/1.73 M2 eGFR Afr. Amer. 84 (L) >90 ML/MIN/1.73 M2 LIPASE Result Value Ref Range LIPASE 102 73 - 393 UNITS/L URINALYSIS Result Value Ref Range Specimen Type URINE CLEAN CATCH COLOR (U) LIGHT YELLOW TRANSPARENCY TURBID Specific Kite (U) 1.014 1.001 - 1.030 U PH 5.5 5.0 - 9.0 LEUKOCYTE ESTERASE 500 (A) NEGATIVE NITRITES NEGATIVE NEGATIVE PROTEIN (U) 70 (H) <30 MG/DL URINE GLUCOSE 300 (A) NORMAL MG/DL U KETONES NEGATIVE NEGATIVE MG/DL UROBILINOGEN NORMAL NORMAL MG/DL BILIRUBIN (U) NEGATIVE NEGATIVE MG/DL BLOOD TRACE (A) NEGATIVE CULTURE & SENSITIVITY INDICATED? SPECIMEN SETUP FOR CULTURE WBC/HPF 13 (H) <6 /HPF RBC/HPF 33 (H) <6 /HPF BACTERIA (URINE) FEW (A) NONE /HPF Budding Yeast FEW (A) NONE /HPF SQUAMOUS EPITHELIALS RARE /HPF IMAGING STUDIES CT ABD+PEL W IV CON ONLY Final Result by User, [id number] (09/11 2210) EXAMINATION: ABDOMEN PELVIS CTWITH CONTRAST CLINICAL INDICATION: 40-year-old. Abdominal pain. Acute. Nonlocalized. L: Patient ambulatory to ED with c/o right sided flank pain. Patient states onset of symptoms began a few days ago. Patient originally seen at urgent care in [place]. Patient also reports vaginal discharge and right toe pain. Patient has history of DM and toe amputation, no fever noted. Patient a/ox4 and in no respiratory distress at this time. 09/11/2020 7:48 PM, Bryan Funmi L: Is the patient ? No TECHNIQUE: CT of the abdomen and pelvis was acquired after intravenous administration of 100 cc of Isovue-370 into indwelling intravenous access in the right antecubital fossa without adverse contrast reaction reported. Images acquired from the lung bases to the femoral heads then reconstructed in sagittal and coronal projections. Dose lowering technique was used for this study which may include, but is not limited to, dose reduction techniques, automated exposure control, use of iterative reconstruction and ALARA (As low As Reasonably Achievable)/Image Gently techniques. COMPARISON: Contrast-enhanced CT abdomen and pelvis 12/13/2019 and 11/12/2019 and 02/15/2019 FINDINGS: Included lung bases: Clear of infiltrate or effusion. ABDOMEN: The liver and spleen and adrenal glands and pancreas and gallbladder are unremarkable. Right kidney: Stable mild enlargement of the right kidney compared to the left. Pronounced right calyceal clubbing right renal cortical thinning and right hydronephrosis. Stable measured right renal pelvis dilatation of 2.5 cm. Normal caliber right ureter; possible chronic right UVJ narrowing, stricture or partial obstruction. This is unchanged since 2019 Stable 2 mm calcification superior pole calyx and 3 mm calcification interpolar calyx and 8mm calcifications lower pole calyx. All of these demonstrate dependent meniscus; possible nephrocalcinosis less likely proteinaceous calcifications. There is no right ureteric calculi. Left kidney: Stable 4 mm nonobstructing calculi interpolar region. Normal nephrogram. No hydronephrosis or ureteric calculi. No retroperitoneal fluid or hemorrhage. No retroperitoneal lymphadenopathy. GI: Unremarkable stomach and small bowel. Normal retrocecal appendix.. The colon is normal in caliber and position. No bowel obstruction. Scattered sigmoid diverticulosis. No CT findings of diverticulitis. No free air or free fluid in the abdomen or pelvis. PELVIS: Urinary bladder: Normally filled. No intracystic calculi. Normal bladder wall. Uterus: Surgically absent. Patient has retained her ovaries; the right ovary contains of 18 mm unilocular cystic structure and the left ovary contains a marginated unilocular 21 mm cystic structure; bilateral ovarian follicular cysts with dominant follicle on the left. No free fluid in the pelvis. Bone window imaging: Unremarkable. IMPRESSION: 1. Stable right hydronephrosis, calyceal clubbing, parenchymal thinning and calyceal calcifications; possible chronic right UPJ narrowing, postinflammatory stricture or partial obstruction 2. 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 3. Stable nonobstructing left renal lithiasis. No right or left ureteric calculi. 4. No bowel obstruction or appendicitis or acute inflammatory change in the large or small bowel 5. Bilateral ovarian follicular cysts; suspect dominant follicle on the left. Referred By: Interpreted By: Charlotte Cronin DO, 09/11/2020 9:21 PM XR GREAT TOE RT 3V Final Result by User, [id number] (09/11 1952) EXAMINATION: XR GREAT TOE RT 3V HISTORY: Pain DATE: 09/11/2020 7:33 PM COMPARISON: 11/24/2015 TECHNIQUE: AP, oblique and lateral views of the right great toe FINDINGS: No acute fracture identified. No dislocation. Joint spaces unremarkable. Arterial calcifications. No bone lesions. IMPRESSION: No acute osseous abnormality. Referred By: Interpreted By: Arley Gastelum MD, 09/11/2020 7:52 PM ED Course / Medical Decision Making Results: I reviewed old medical records, obtained from Care Everywhere, as well as internal past medical records, wwhere needed. I interpreted the patient's pulse oximeter at rest, which is 98% on room air which is normal and determined that this patient is not hypoxic The elements of the HPI, review of systems, past medical history, past surgical history, past family history, social history, medication list, allergies, and examination documented above were personally obtained by me via direct interaction of the patient when possible, with the exception of circumstances or patient factors limiting my ability to do so, as above. In instances where nursing or other providers documented this information prior to my encounter, I personally confirmed the accuracy of this information to the best of my ability given the circumstances. Laboratory Data Reviewed: Noted labs, and abnormals noted on work sheet Imaging Studies Reviewed: Read interpretation report from radiologist. Reviewed images of xrays, independently. Did not speakwith radiologist re: CT ED Course: ED Course as of Sep 11 2245 Sat Sep 11, 20202045 URINE GLUCOSE(!): 300 [LM] 2045 WBC/HPF(!): 13 [LM] 2045 WBC(!): 14.1 [LM] 2045 GLUCOSE(!): 197 [LM] ED Course User Index [LM] June Caputo NP Patient was provided with a prescription : see discharge instructions Outpatient referral to PCP and urologist and foot cutter ordered. Patient provided with phone number to call for an appointment. Patient instructed to call on the next business day during business hours. Patient informed that he should be evaluated by this specialist within 1 week Outpatient referral to primary care physician ordered. Patient provided with phone number to call for an appointment. Patient instructed to call on the next business day during business hours. Patient informed that he should be evaluated within 1 week Patient provided with printed and verbal discharge care instructions and was instructed to return to the emergency department immediately with worsening symptoms or new worrisome symptoms. I did spend time answering questions. Discharge instructions using teach back, understanding assessed and validated. Patient was instructed to follow-up with primary care physician within 1 week for further evaluation and treatment. Patient condition at time of discharge stable Diagnoses & treatment discussed with patient Patient expressed understanding and agreed. ED Diagnosis: Clinical Impression Acute cystitis without hematuria (Primary) Acute vaginitis Disposition: Discharge ED Course as of Sep 11 2245 Sat Sep 11, 20202045 URINE GLUCOSE(!): 300 [LM] 6 WBC/HPF(!): 13 [LM] 2045 WBC(!): 14.1 [LM] 2045 GLUCOSE(!): 197 [LM] ED Course User Index [LM] June Caputo NP Medications traMADol (ULTRAM) tablet 50 mg (has no administration in time range) sodium chloride 0.9% bolus infusion SOLN 1,000 mL (0 mLs Intravenous Infusion Stop Time 09/11/202130) iopamidol (ISOVUE-370) 76 % injection 100 mL (100 mLs Intravenous Given 09/11/202058) cephALEXin (KEFLEX) capsule 500 mg (500 mg Oral Given 09/11/202225) Clinical Impression Acute cystitis without hematuria (Primary) Acute vaginitis Current Discharge Medication List START taking these medications Details cephALEXin (KEFLEX) 500 MG capsule Take 1 capsule (500 mg total) by mouth 3 (three) times daily for10 days. Qty: 30 capsule, Refills: 0 Class: Eprescribe Pharmacy: [facility] [address] [place] [address] (Ph #: [phone]) metroNIDAZOLE (METROGEL VAGINAL) 0.75 % vaginal gel Place vaginally 2 (two) times daily for 7 days. Qty: 70 g, Refills: 0 Class: Eprescribe Pharmacy: [address] (Ph #: [phone]) traMADol 50 MG tablet Take 1 tablet (50 mg total) by mouth every 8 (eight) hours as needed. Indications: Acute Pain < 7 Day Supply Qty: 20 tablet, Refills: 0 Class: Eprescribe Pharmacy: [address] (Ph #: [phone]) Associated Diagnoses: Acute cystitis without hematuria Medications traMADol (ULTRAM) tablet 50 mg (has no administration in time range) sodium chloride 0.9% bolus infusion SOLN 1,000 mL (0 mLs Intravenous Infusion Stop Time 09/11/202130) iopamidol (ISOVUE-370) 76 % injection 100 mL (100 mLs Intravenous Given 09/11/202058) cephALEXin (KEFLEX) capsule 500 mg (500 mg Oral Given 09/11/202225) Current Discharge Medication List START taking these medications Details cephALEXin (KEFLEX) 500 MG capsule Take 1 capsule (500 mg total) by mouth 3 (three) times daily for10 days. Qty: 30 capsule, Refills: 0 Class: Eprescribe Pharmacy: [address] (Ph #: [phone]) metroNIDAZOLE (METROGEL VAGINAL) 0.75 % vaginal gel Place vaginally 2 (two) times daily for 7 days. Qty: 70 g, Refills: 0 Class: Eprescribe Pharmacy: [facility] [address] [place] [address] - [address] [place] [address] (Ph #: [phone]) traMADol 50 MG tablet Take 1 tablet (50 mg total) by mouth every 8 (eight) hours as needed. Indications: Acute Pain < 7 Day Supply Qty: 20 tablet, Refills: 0 Class: Eprescribe Pharmacy: [facility] [address] [place] [address] (Ph #: [phone]) Associated Diagnoses: Acute cystitis without hematuria Disposition: Discharge Follow-Up: Jarred Rod MD [address] [place] [phone] As needed Aydin Hair MD [address] [place] [phone] Schedule an appointment as soon as possible for a visit JUNE CAPUTO NP 09/11/2020 Note: This H+P / note was created with the aid of dictation software, thus there may be some word substitutions or errors. June Caputo NP 09/12/20 1239 Cosigned by Hubert Guzman MD at 09/12/2020 9:23 PM CDT * Trey Gaming RN - 09/11/2020 7:18 PM CDT Patient ambulatory to ED with c/o right sided flank pain. Patient states onset of symptoms began a few days ago. Patient originally seen at urgent care in [place]. Patient also reports vaginal discharge and right toe pain. Patient has history of DM and toe amputation, no fever noted. Patient a/ox4 and in no respiratory distress at this time. 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 [facility] [phone] Marvin Mckeon MD [facility] [address] [place] [address] 03/20/2024 11:30 AM SALES COACH Office Visit [facility] [place] [address] [place] [phone] Abiodun Segura II, MD [address] [place], [place] [phone] documented as of this encounter Procedures Procedure Name Priority Date/Time Associated Diagnosis Comments CT ABD+PEL W CON STAT 09/11/2020 8:59 PM CDT HC URINALYSIS AUTO W/O MICRO STAT 09/11/2020 8:17 PM CDT URINE BACTERIA CULTURE Routine 8:17 PM CDT XR GREAT TOE RT 3V STAT 09/11/2020 7: 46 PM CDT COMPREHENSIVE METABOLIC PANEL STAT 09/11/2020 7:19 PM CDT CBC W/DIFF AUTOMATED STAT 09/11/2020 7:19 PM CDT LIPASE STAT 09/11/2020 7:19 PM CDT documented in this encounter Results * CT ABD+PEL W IV CON ONLY (09/11/2020 8:59 PM CDT) Anatomical Region Laterality Modality Abdomen Computed Tomogra phy 09/11/2020 9:21 PM CDT Impressions 09/11/2020 10:10 PM CDT IMPRESSION: 1. ??Stable right hydronephrosis, calyceal clubbing, parenchymal thinning and calyceal calcifications; possible chronic right UPJ narrowing, postinflammatory stricture or partial obstruction 2. 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 3. ??Stable nonobstructing left renal lithiasis. ??No right or left ureteric calculi. 4. ??No bowel obstruction or appendicitis or acute inflammatory change in the large or small bowel 5. ??Bilateral ovarian follicular cysts; suspect dominant follicle on the left. Referred By: ?? Interpreted By: Charlotte Cronin DO, 09/11/2020 9:21 PM Narrative 09/11/2020 10:10 PM CDT EXAMINATION: ABDOMEN PELVIS CTWITH CONTRAST CLINICAL INDICATION: 40-year-old. ??Abdominal pain. ??Acute. ??Nonlocalized. L: Patient ambulatory to ED with c/o right sided flank pain. Patient states onset of symptoms began a few days ago. Patient originally seen at urgent care in [place]. Patient also reports vaginal discharge and right toe pain. Patient has history of DM and toe amputation, no fever noted. Patient a/ox4 and in no respiratory distress at this time. 09/11/2020 7:48 PM, Funmi Adams L: Is the patient ? ??No TECHNIQUE: CT of the abdomen and pelvis was acquired after intravenous administration of 100 cc of Isovue-370 into indwelling intravenous access in the right antecubital fossa without adverse contrast reaction reported. Images acquired from the lung bases to the femoral heads then reconstructed in sagittal and coronal projections. Dose lowering technique was used for this study which may include, but is not limited to, dose reduction techniques, automated exposure control, use of iterative ??reconstruction and ALARA (As low As Reasonably Achievable)/Image Gently techniques. COMPARISON: Contrast-enhanced CT abdomen and pelvis 12/13/2019 and 11/12/2019 and 02/15/2019 FINDINGS: Included lung bases: Clear of infiltrate or effusion. ABDOMEN: The liver and spleen and adrenal glands and pancreas and gallbladder are unremarkable. Right kidney: Stable mild enlargement of the right kidney compared to the left. ??Pronounced right calyceal clubbing right renal cortical thinning and right hydronephrosis. ??Stable measured right renal pelvis dilatation of 2.5 cm. ??Normal caliber right ureter; possible chronic right UVJ narrowing, stricture or partial obstruction. ??This is unchanged since 2019 Stable 2 mm calcification superior pole calyx and 3 mm calcification interpolar calyx and 8mm calcifications lower pole calyx. ??All of these demonstrate dependent meniscus; possible nephrocalcinosis less likely proteinaceous calcifications. ??There is no right ureteric calculi. Left kidney: Stable 4 mm nonobstructing calculi interpolar region. ??Normal nephrogram. ??No hydronephrosis or ureteric calculi. No retroperitoneal fluid or hemorrhage. ??No retroperitoneal lymphadenopathy. GI: Unremarkable stomach and small bowel. ??Normal retrocecal appendix.. ??The colon is normal in caliber and position. ??No bowel obstruction. ??Scattered sigmoid diverticulosis. ??No CT findings of diverticulitis. ??No free air or free fluid in the abdomen or pelvis. PELVIS: Urinary bladder: Normally filled. ??No intracystic calculi. ??Normal bladder wall. Uterus: Surgically absent. ??Patient has retained her ovaries; the right ovary contains of 18 mm unilocular cystic structure and the left ovary contains a marginated unilocular 21 mm cystic structure; bilateral ovarian follicular cysts with dominant follicle on the left. ??No free fluid in the pelvis. Bone window imaging: Unremarkable. Procedure Note Charlotte Cronin MD - 09/11/2020 EXAMINATION: ABDOMEN PELVIS CTWITH CONTRAST CLINICAL INDICATION: 40-year-old. Abdominal pain. Acute. Nonlocalized. L: Patient ambulatory to ED with c/o right sided flank pain. Patientstates onset of symptoms began a few days ago. [facility] [place] Patient also reports vaginal discharge andright toe pain. Patient has history of DM and toe amputation, no fevernoted. Patient a/ox4 and in no respiratory distress at this time. 09/11/2020 7:48 PM, Funmi Adams L: Is the patient ? No TECHNIQUE: CT of the abdomen and pelvis was acquired after intravenous administrationof 100 cc of Isovue-370 into indwelling intravenous access in the rightantecubital fossa without adverse contrast reaction reported. Imagesacquired from the lung bases to the femoral heads then reconstructed insagittal and coronal projections. Dose lowering technique was used for this study which may include, but isnot limited to, dose reduction techniques, automated exposure control, useof iterative reconstruction and ALARA (As low As ReasonablyAchievable)/Image Gently techniques. COMPARISON: Contrast-enhanced CT abdomen and pelvis 12/13/2019 and 11/12/2019 and02/15/2019 FINDINGS: Included lung bases: Clear of infiltrate or effusion. ABDOMEN: The liver and spleen and adrenal glands and pancreas and gallbladder areunremarkable. Right kidney: Stable mild enlargement of the right kidney compared to theleft. Pronounced right calyceal clubbing right renal cortical thinningand right hydronephrosis. Stable measured right renal pelvis dilatationof 2.5 cm. Normal caliber right ureter; possible chronic right UVJnarrowing, stricture or partial obstruction. This is unchanged [id number] Stable 2 mm calcification superior pole calyx and 3 mm calcificationinterpolar calyx and 8mm calcifications lower pole calyx. All of thesedemonstrate dependent meniscus; possible nephrocalcinosis less likelyproteinaceous calcifications. There is no right ureteric calculi. Left kidney: Stable 4 mm nonobstructing calculi interpolar region. Normalnephrogram. No hydronephrosis or ureteric calculi. No retroperitoneal fluid or hemorrhage. No retroperitoneallymphadenopathy. GI: Unremarkable stomach and small bowel. Normal retrocecal appendix..The colon is normal in caliber and position. No bowel obstruction.Scattered sigmoid diverticulosis. No CT findings of diverticulitis. Nofree air or free fluid in the abdomen or pelvis. PELVIS: Urinary bladder: Normally filled. No intracystic calculi. Normal bladderwall. Uterus: Surgically absent. Patient has retained her ovaries; the rightovary contains of 18 mm unilocular cystic structure and the left ovarycontains a marginated unilocular 21 mm cystic structure; bilateral ovarianfollicular cysts with dominant follicle on the left. No free fluid in thepelvis. Bone window imaging: Unremarkable. IMPRESSION: 1. Stable right hydronephrosis, calyceal clubbing, parenchymal thinningand calyceal calcifications; possible chronic right UPJ narrowing,postinflammatory stricture or partial obstruction 2. The calyceal calcifications demonstrate dependent meniscus; suspectnephrocalcinosis with secondary consideration given to layeringproteinaceous calcifications. 3. Stable nonobstructing left renal lithiasis. No right or left uretericcalculi. 4. No bowel obstruction or appendicitis or acute inflammatory change inthe large or small bowel 5. Bilateral ovarian follicular cysts; suspect dominant follicle on theleft. Referred By: Interpreted By: Charlotte Cronin DO, 09/11/2020 9:21 PM June Caputo OFFICE ANALYST CT Final Result * CULTURE URINE (09/11/2020 8:17 PM CDT) SPEC DESCRIPTION URINE CLEAN CATCH 09/11/2020 8:37 PM CDT [facility] SPECIAL REQUESTS NO SPECIAL REQUEST 09/11/2020 8:37 PM CDT [facility] CULTURE RESULT POLYMICROBIAL GROWTH CONSISTENT WITH NORMAL GENITAL AIDEN. ?? SUSCEPTIBILITIES NOT ROUTINELY PERFORMED. 09/13/2020 8:56 AM CDT [facility] URINE SPECIMEN OBTAINED BY CLEAN CATCH PROCEDURE / Unknown 09/11/2020 8:17 PM CDT 09/11/2020 8:37 PM CDT June Caputo OFFICE ANALYST MICROBIOLOGY - GENERAL ORDERA BLES Final Result [facility] [address] [place] [address], [place] [phone] * (ABNORMAL) URINALYSIS (09/11/2020 8:17 PM CDT) SPECIMEN TYPE URINE CLEAN CATCH 09/11/2020 8:14 PM CDT [facility] COLOR (U) LIGHT YELLOW 09/11/2020 8:37 PM CDT [facility] TRANSPARENCY TURBID 09/11/2020 8:37 PM CDT [facility] SPECIFIC GRAVITY (U) 1.014 1.001 - 1.030 09/11/2020 8:37 PM CDT [facility] U PH 5.5 5.0 - 9.0 09/11/2020 8:37 PM CDT [facility] LEUKOCYTES (U) 500(A) NEGATIVE 09/11/2020 8:37 PM CDT [facility] NITRITES NEGATIVE NEGATIVE 09/11/2020 8:37 PM CDT [facility] PROTEIN (U) 70(H) <30 MG/DL 09/11/2020 8:37 PM T [facility] URINE GLUCOSE 300(A) NORMAL MG/DL 09/11/2020 8:37 PM CDT [facility] KETONES MG/DL (U) NEGATIVE NEGATIVE MG/DL 09/11/2020 8:37 PM T [facility] UROBILINOGEN NORMAL NORMAL MG/DL 09/11/2020 8:37 PM T [facility] BILIRUBIN (U) NEGATIVE NEGATIVE MG/DL 09/11/2020 8:37 PM T [facility] BLOOD (U) TRACE(A) NEGATIVE 09/11/2020 8:37 PM T [facility] CULTURE & SENSITIVITY INDICATED? SPECIMEN SETUP FOR CULTURE 09/11/2020 8:37 PM T [facility] WBC/HPF 13(H) <6 /HPF 09/11/2020 8:37 PM CDT [facility] RBC/HPF 33(H) <6 /HPF 09/11/2020 8:37 PM T [facility] BACTERIA (U) FEW(A) NONE /HPF 09/11/2020 8:37 PM T [facility] BUDDING YEAST FEW(A) NONE /HPF 09/11/2020 8:37 PM CDT [facility] SQUAMOUS EPITHELIALS RARE /HPF 09/11/2020 8:37 PM CDT [facility] URINE SPECIMEN OBTAINED BY CLEAN CATCH PROCEDURE / Unknown 09/11/2020 8:17 PM CDT June K Harshal OFFICE ANALYST URINE ORDERABLES Final Result [facility] [address] [place] [address], [place] [phone] * XR GREAT TOE RT 3V (09/11/2020 7:46 PM CDT) Anatomical Region Laterality Modality Foot Radiographic Shelli ging 09/11/2020 7:52 PM CDT Impressions 09/11/2020 7:52 PM CDT IMPRESSION: No acute osseous abnormality. Referred By: ?? Interpreted By: Arley Gastelum MD, 09/11/2020 7:52 PM Narrative 09/11/2020 7:52 PM CDT EXAMINATION: XR GREAT TOE RT 3V HISTORY: Pain DATE: 09/11/2020 7:33 PM COMPARISON: 11/24/2015 TECHNIQUE: AP, oblique and lateral views of the right great toe FINDINGS: No acute fracture identified. ??No dislocation. ??Joint spaces unremarkable. ??Arterial calcifications. ??No bone lesions. Procedure Note Arley Gastelum MD - 09/11/2020 EXAMINATION: XR GREAT TOE RT 3V HISTORY: Pain DATE: 09/11/2020 7:33 PM COMPARISON: 11/24/2015 TECHNIQUE: AP, oblique and lateral views of the right great toe FINDINGS: No acute fracture identified. No dislocation. Joint spacesunremarkable. Arterial calcifications. No bone lesions. IMPRESSION: No acute osseous abnormality. Referred By: Interpreted By: Arley Gastelum MD, 09/11/2020 7:52 PM June Caputo NP GENERAL IMAGING Final Result * LIPASE (09/11/2020 7:19 PM CDT) Pathologist [facility] LIPASE 102 73 - 393 UNITS/L 09/11/2020 8:44 PM CDT [facility] 09/11/2020 7:19 PM CDT June Caputo NP LABORATORY Final Result [facility] [address] [place] [address], [place] [phone] * (ABNORMAL) COMPREHENSIVE METABOLIC PANEL (09/11/2020 7:19 PM CDT) Pathologist [facility] GLUCOSE 197(H) 70 - 99 MG/DL 09/11/2020 8:44 PM CDT [facility] BUN 13 7 - 18 MG/DL 09/11/2020 8:44 PM CDT [facility] CREATININE S/P/B 0.93 0.55 - 1.02 MG/DL 09/11/2020 8:44 PM CDT [facility] SODIUM S/P/B 137 136 - 145 MMOL/L 09/11/2020 8:44 PM CDT [facility] POTASSIUM S/P/B 3.8 3.5 - 5.1 MMOL/L 09/11/2020 8:44 PM CDT [facility] CHLORIDE S/P/B 105 100 - 108 MMOL/L 09/11/2020 8:44 PM CDT [facility] CO2 27.0 21 - 32 MMOL/L 09/11/2020 8:44 PM CDT [facility] CALCIUM S/P/B 9.0 8.5 - 10.1 MG/DL 09/11/2020 8:44 PM CDT [facility] BILIRUBIN TOTAL S/P/B 0.4 0.2 - 1.2 MG/DL 09/11/2020 8:44 PM CDT [facility] Comment: THIS ASSAY IS NOT RECOMMENDED FOR PATIENTS UNDERGOING TREATMENT WITH ELTROMBOPAG DUE TO THE POTENTIAL FOR FALSELY ELEVATED RESULTS. TOTAL PROTEIN S/P/B 8.8(H) 6.4 - 8.2 G/DL 09/11/2020 8:44 PM CDT [facility] ALBUMIN S/P/B 3.3(L) 3.4 - 5.0 G/DL 09/11/2020 8:44 PM CDT [facility] AST 12(L) 15 - 37 U/L 09/11/2020 8:44 PM T [facility] ALT 21 14 - 55 U/L 09/11/2020 8:44 PM CDT [facility] ALKALINE PHOSPHATASE S/P/B 142(H) 50 - 136 U/L 09/11/2020 8:44 PM CDT [facility] ANION GAP 5.0 5 - 15 MMOL/L 09/11/2020 8:44 PM T [facility] BUN CREATININE RATIO 14.0 6 - 26 09/11/2020 8:44 PM CDT [facility] A/G RATIO 0.6(L) 1.0 - 2.0 RATIO 09/11/2020 8:44 PM T [facility] EGFR NON-AFR. AMER. 72(L) >90 ML/MIN/1.7 3 M2 09/11/2020 8:44 PM CDT [facility] EGFR AFR. AMER. 84(L) >90 ML/MIN/1.7 3 M2 09/11/2020 8:44 PM CDT [facility] Comment: NOTE: eGFR is not calculated for patients <18 years of age. This is an estimated GFR (CKD EPI) and should not be used for calculating drug doses. 09/11/2020 7:19 PM CDT us June Caputo NP LABORATORY Final Result [facility] [address] [place] [address], [place] [phone] * (ABNORMAL) CBC W/DIFF AUTOMATED (09/11/2020 7:19 PM CDT) WBC 14.1(H) 4.5 - 11.0 x10'3/uL 09/11/2020 8:18 PM CDT [facility] RBC 3.85(L) 4.20 - 5.40 x10'6/uL 09/11/2020 8:18 PM CDT [facility] HGB 11.7(L) 12.0 - 16.0 G/DL 09/11/2020 8:18 PM CDT [facility] HCT 34.6(L) 38.0 - 48.0 % 09/11/2020 8:18 PM CDT [facility] MCV 89.9 81.0 - 99.0 FL 09/11/2020 8:18 PM CDT [facility] MCH 30.4 27.0 - 31.0 PG 09/11/2020 8:18 PM CDT [facility] MCHC 33.8 32.0 - 36.0 G/DL 09/11/2020 8:18 PM CDT [facility] RDW 13.2 11.5 - 14.5 % 09/11/2020 8:18 PM CDT [facility] PLT 267 130 - 400 x10'3/uL 09/11/2020 8:18 PM CDT [facility] MPV 11.3 9.3 - 12.2 FL 09/11/2020 8:18 PM CDT [facility] DIFFERENTIAL TYPE AUTOMATED DIFFERENTIAL 09/11/2020 8:18 PM CDT [facility] NEUTROPHILS % 70.5 % 09/11/2020 8:18 PM CDT [facility] LYMPHOCYTES % 23.7 % 09/11/2020 8:18 PM CDT [facility] MONOCYTES % 4.4 % 09/11/2020 8:18 PM CDT [facility] EOSINOPHILS 0.6 % 09/11/2020 8:18 PM CDT [facility] BASOPHILS 0.4 % 09/11/2020 8:18 PM CDT [facility] IMMATURE GRANS % 0.4 % 09/12/19 8:18 PM CDT [facility] ABS. NEUTROPHILS TOTAL 9.94(H) 1.80 - 7.70 x10'3/uL 09/11/2020 8:18 PM CDT [facility] ABS. LYMPHOCYTES 3.34 1.00 - 4.80 x10'3/uL 09/11/2020 8:18 PM CDT [facility] ABS. MONOCYTES 0.62 0.24 - 0.86 x10'3/uL 09/11/2020 8:18 PM CDT [facility] ABS. EOSINOPHILS 0.09 0.04 - 0.36 x10'3/uL 09/11/2020 8:18 PM CDT [facility] ABS. BASOPHILS 0.05 0.01 - 0.08 x10'3/uL 09/11/2020 8:18 PM CDT [facility] ABS. IMMATURE GRANULOCYTES 0.06 0.00 - 0.49 x10'3/uL 09/11/2020 8:18 PM CDT [facility] 09/11/2020 7:19 PM CDT us June Caputo NP LABORATORY Final Result [facility] [address] [facility] [place] [address], [place] [phone] documented in this encounter Visit Diagnoses Diagnosis Acute cystitis without hematuria- Primary Acute cystitis Acute vaginitis Vaginitis and vulvovaginitis, unspecified documented in this encounter Administered Medications Inactive Administered Medications - up to 3 most recent administrations Medication Order MAR Action Action Date Dose Rate Site cephALEXin (KEFLEX) capsule 500 mg 500 mg, Oral, Once, 1 dose, On 09/11/20 at 2230 Given 09/11/2020 10:26 PM CDT 500 mg iopamidol (ISOVUE-370) 76 % injection 100 mL 100 mL, Intravenous, IMG once as needed, Contrast, 1 dose, Starting on 09/11/20 at 2058, Until 09/11/20 at 2058 Given 09/11/2020 8:59 PM CDT 100 mLs Ri ght Arm sodium chloride 0.9% bolus infusion SOLN 1,000 mL 1,000 mL, Intravenous, Administer over 15 Minutes, Once, 1 dose, On 09/11/20 at 1930 New Bag 09/11/2020 8:06 PM CDT 1,000 mLs traMADol (ULTRAM) tablet 50 mg 50 mg, Oral, Once, 1 dose, On 09/11/20 at 2245 Given 09/11/2020 10:47 PM CDT 50 mg documented in this encounter Active and Recently Administered Medications Times are shown in CDT. Scheduled Medication Order 09/09/2020 09/10/2020 09/11/2020 cephALEXin (KEFLEX) capsule 500 mg (COMPLETED) 500 mg, Oral, Once, 1 dose, On 09/11/20 at 2230 2226 (Given - Provid er: Alicia Mcmahan, DEANDRE) sodium chloride 0.9% bolus infusion SOLN 1,000 mL (COMPLETED) 1,000 mL, Intravenous, Administer over 15 Minutes, Once, 1 dose, On 09/11/20 at 1930 2005 (New Bag - Prov ider: Kortney Barrett, DEANDRE)2131 (Infusion Stop Time - Provider: Alicia Mcmahan, DEANDRE) traMADol (ULTRAM) tablet 50 mg (COMPLETED) 50 mg, Oral, Once, 1 dose, On 09/11/20 at 2245 2247 (Given - Provid er: Alicia Mcmahan RN) PRN Medication Order 09/09/2020 09/10/2020 09/11/2020 iopamidol (ISOVUE-370) 76 % injection 100 mL (COMPLETED) 100 mL, Intravenous, IMG once as needed, Contrast, 1 dose, Starting on 09/11/20 at 2058, Until 09/11/20 at 2058 2058 (Given - Provid er: Funmi Adams RTR) documented in this encounter Care Teams Plastic Welding Machine Operator Relationship Specialty Start Date End Date Jarred Rod MD PCP - General FAMILY PRACTICE 07/21/15 09/30/20 documented as of this encounter
--- OUTSIDE RECORDS SUMMARY | 2024-03-02 22:30 | XMS_ITS | Encounter Summary ---
Author Organization [facility] Address [address] [place] [address]. [place] [address] [place] [address] Care Team Providers Care Undertaker Helper Name Role Phone Colton SILVEIRA MD, Yasmin Rushing Primary Care Provider Reason for Referral * Physical Medicine (Routine) - Closed Specialty Diagnoses / Procedures Referred By Contact Referred To Contact PHYSICAL THERAPY / [facility] Physical Therapy Diagnoses Chronic bilateral low back pain without sciatica Audie Vides PA-C [address] [place] [address] Phone: tel: fax: [facility] [place] [address] Phone: tel: fax: Referral ID Status Reason Start Date Expiration Date V isits Requested Visits Authorized [id number] Closed Physical Therapy 12/14/2020 01/13/2022 10 10 Reason for Visit * Reason Comments Back Pain for x3 months, lower back pain Encounter Details Date Type Department Care Team (Late st Contact Info) Description 12/14/2020 10:30 AM CDT Office Visit [facility] Medical Group Family Medicine - [place] [phone] Audie Vides PA-C [address] [place] [address]. [place] [address] Back Pain (for x3 months, lower back pain ) Social History Tobacco Use Types Packs/Day [...] have Coronavirus / COVID-19? No / Unsure 12/14/2020 10:59 AM CDT documented as of this encounter Last Filed Vital Signs Vital Sign Reading Time Taken Comments Blood Pressure 132/84 12/14/2020 11:13 AM CDT Pulse 68 12/14/2020 11:13 AM CDT Temperature 36.5 ??C (97.7 ??F) 12/14/2020 11:13 AM C DT Respiratory Rate 20 12/14/2020 11:13 AM CDT Oxygen Saturation 100% 12/14/2020 11:13 AM CDT Inhaled Oxygen Concentration - - Weight 90.7 kg (200 lb) 12/14/2020 11:13 AM CDT Height 167.6 cm (5' 6 ) 12/14/2020 11:13 AM CDT Body Mass Index 32.28 12/14/2020 11:13 AM CDT documented in this [...] documented in this encounter Progress Notes * Audie Vides PA-C - 12/14/2020 10:30 AM CDT Reason for Visit: Back Pain (for x3 months, lower back pain ) History of Present Illness: Patient here for low back pain for 3 months. She feels her back pain is getting worse. She gets pain down the left leg sometimes when on her feet a long time. She denies trauma. She rests her back, no OTC medications. She also complains of left toe sore that has been there about 4 weeks. [facility]. ROS: Review of Systems Respiratory: Negative for shortness of breath. Cardiovascular: Negative for chest pain. Musculoskeletal: Positive for back pain. Psychiatric/Behavioral: Negative for suicidal ideas. All other systems reviewed and are negative. Medications: Current Outpatient Medications: ??? amLODIPine 10 MG tablet, Take 1 tablet (10 mg total) by mouth daily., Disp: 90 tablet, Rfl: 3 ??? HUMALOG MIX 75/25 (75-25) 100 UNIT/ML Suspension, Take 55 units in AM and 50 units PM, this should be titrated depending on your blood sugar numbers. (Patient taking differently: Inject 55-65 Units into the skin see administration instructions. Take 65 units in AM and 55 units PM, this should be titrated depending on your blood sugar numbers.), Disp: 1 vial, Rfl: 1 ??? HYDROCHLOROTHIAZIDE 25 MG tablet, Take 1 tablet by mouth once daily, Disp: 90 tablet, Rfl: 0 ??? lisinopril 40 MG tablet, Take 40 mg by mouth nightly. , Disp: , Rfl: ??? meloxicam 15 MG tablet, Take 1 tablet (15 mg total) by mouth daily., Disp: 30 tablet, Rfl: 1 ??? Misc. Devices (PILL SPLITTER) Misc, 1 Device by Does not apply route daily., Disp: 1 each, Rfl:1 ??? nitroglycerin 0.4 MG SL tablet, Place 0.4 mg under the tongue every 5 (five) minutes as needed.FOR CHEST PAIN DO NOT EXCEED A TOTAL OF 3 DOSES IN 15 MINUTES, Disp: , Rfl: ??? ondansetron 4 MG disintegrating tablet, Take 1 tablet (4 mg total) by mouth every 8 (eight) hours as needed for Nausea., Disp: 20 tablet, Rfl: 0 ??? RELION INSULIN SYRINGE 31G X 15/64 1 ML Misc, USE 1 SYRINGE SUBCUTANEOUSLY TWICE DAILY, Disp: 100 each, Rfl: 5 ??? simvastatin 40 MG tablet, Take 40 mg by mouth nightly at bedtime. , Disp: , Rfl: ??? spironolactone 25 MG tablet, Take 0.5 tablets (12.5 mg total) by mouth daily., Disp: 45 tablet,Rfl: 3 ??? TRULICITY 1.5 MG/0.5ML Solution Pen-injector, Inject 1.5 mg into the skin every 7 days. INJECT ON SUNDAY, Disp: , Rfl: 0 Allergies Allergen Reactions ??? Amoxicillin Rash ??? Penicillins Rash Past [...] BLADDER SURGERY ??? EYE SURGERY ??? HYSTERECTOMY 2005, 2020 hysterectomy, cervical surgery ??? RETINAL DETACHMENT SURGERY Right Social History Socioeconomic History ??? Marital status: Spouse name: Not on file ??? Number of children: Not on file ??? Years of education: Not on file ??? Highest education level: Not on file Occupational History ??? Not on file Tobacco Use ??? Smoking status: Never Smoker ??? Smokeless tobacco: Never Used Substance and Sexual Activity ??? Alcohol use: [...] Social Determinants of Health Financial Resource Strain: ??? Difficulty of Paying Living Expenses: Food Insecurity: ??? Worried About Running Out of Food in the Last Year: ??? Ran Out of Food in the Last Year: Transportation Needs: ??? Lack of Transportation (Medical): ??? Lack of Transportation (Non-Medical): Physical Activity: ??? Days of Exercise per Week: ??? Minutes of Exercise per Session: Stress: ??? Feeling of Stress : Social Connections: ??? Frequency of Communication with Friends and Family: ??? Frequency of Social Gatherings with Friends and Family: ??? Attends Buddhism Services: ??? Active Member of Clubs or Organizations: ??? Attends Club or Organization Meetings: ??? Marital Status: Intimate Partner Violence: ??? Fear of Current or Ex-Partner: ??? Emotionally Abused: ??? Physically Abused: ??? Sexually Abused: E-Cigarettes Questions Responses E-Cigarette Use Never User E-cigarette/Vaping Substances Questions Responses Nicotine No THC No CBD No Flavoring No E-cigarette/Vaping Devices Questions Responses Disposable No Pre-filled or Refillable Cartridge No Refillable Tank No Pre-filled Pod No Family History Problem Relation Name Age of Onset ??? Diabetes Mother ??? Hypertension Mother ??? Heart Attack Father ??? Hypertension Father ??? Stroke Sister ??? Hypertension Sister Family Status Relation Name Status ??? Mother Alive, age 72y ??? Father Alive, age 71y ??? Sister (Not Specified) ??? Daughter Alive Physical Exam Vitals reviewed. Constitutional: Appearance: Normal appearance. Neck: Thyroid: No thyromegaly. Cardiovascular: Rate and Rhythm: Normal rate and regular rhythm. Pulmonary: Effort: Pulmonary effort is normal. Breath sounds: Normal breath sounds. Musculoskeletal: Lumbar back: Tenderness present. Decreased range of motion. Right lower leg: No edema. Left lower leg: No edema. Left foot: Charcot foot present. Comments: Left fourth toe has a skin colored callus, no open area, no drainage Neurological: Mental Status: She is alert. Psychiatric: Mood and Affect: Mood normal. Filed Vitals: 12/14/20 1113 BP: 132/84 Pulse: 68 Resp: 20 Temp: 97.7 ??F (36.5 ??C) TempSrc: Temporal SpO2: 100% Weight: 90.7 kg (200 lb) Height: 5' 6 (1.676 m) PainSc: 4 Moderate Pain (0-10 Scale) Diagnoses/Impression: 1. Chronic bilateral low back pain without sciatica meloxicam 15 MG tablet Ambulatory referral to Physical Therapy 2. Callus of foot Recommendations and Plan: She will try mobic and PT for back pain. She will see crisis intervention counselor next week for toe callus. She is aware that she needs to go to ER if any signs of infection before her apt next week with crisis intervention counselor. She will keep her follow up apt in about 1 month. Orders Placed This Encounter ??? Ambulatory referral to Physical Therapy ??? meloxicam 15 MG tablet Reviewed and updated this visit by provider: Tobacco Allergies Meds Problems Med Hx Surg Hx Fam Hx AUDIE VIDES PA-C Referring Provider: No ref. provider found PCP: YASMIN SEGURA MD Cosigned by Jarred Rod MD at 12/29/2020 5:27 PM TELEVISION PRODUCER VISION PRODUCER documented in this encounter Plan of Treatment Upcoming Encounters Date Type Department Care Team (Late st Contact Info) Description 03/14/2024 11:45 AM TELEVISION PRODUCER Office Visit [facility] [phone] Marvin Mckeon MD [address] [facility] [address] [place] [address] 03/20/2024 11:30 AM TELEVISION PRODUCER Office Visit [facility] Medical Group Family Medicine - [place] [address] [place] [phone] Yasmin Segura II, MD [address] [place] [address] Scheduled Referrals Name Type Priority Associated Diagnoses Orde r Schedule Ambulatory referral to Physical Therapy Referral Routine Chronic bilateral low back pain without sciatica Ordered: 12/14/2020 documented as of this encounter Visit Diagnoses Diagnosis Chronic bilateral low back pain without sciatica- Primary Callus of foot Corns and callosities documented in this encounter Additional Health Concerns Assessment Noted Time PHQ-9 Depression Total Score: 0 10/09/19 21 10:02 AM CDT documented as of this encounter Care Teams Undertaker Helper Relationship Specialty Start Date End Date Yasmin Segura II, MD [address] [place] [phone] PCP - General FAMILY PRACTICE 12/06/20 01/16/21 documented as of this encounter
--- OUTSIDE RECORDS SUMMARY | 2024-03-02 22:30 | XMS_ITS | Encounter Summary ---
Author Organization [facility] Address [address] [place] [address]. [place], [place] [address] [place] [address] Care Team Providers Care Bench Assembler Name Role Phone Jarred Rod MD Primary Care Provider Unav ailable Shira Shi PA-C Primary Care Provider +1- [phone] Jarred Rod MD Primary Care Provider Unav ailable Colton SILVEIRA MD, Abiodun L Primary Care Provider Jarred Rod MD Primary Care Provider Unav ailable Encounter Details Date Type Department Care Team (Latest Contact Info) Description 05/24/2020 Scan HEALTH INFO SRVCS Scanned, Documents Social [...] COVID-19? No / Unsure 01/24/2021 11:10 AM SAT INSTRUCTOR documented as of this encounter Functional Status [...] st Contact Info) Description 03/14/2024 11:45 AM SAT INSTRUCTOR Office Visit [facility] [phone] Marvin Mckeon MD Three [facility] [address] [place] [address] 03/20/2024 11:30 AM SAT INSTRUCTOR Office Visit [facility] Medical Group Family Medicine - [place] [phone] Abiodun Segura II, MD [address] [place] [address] documented as of this encounter Visit Diagnoses Not on filedocumented in this encounter Care Teams Bench Assembler Relationship Specialty Start Date End Date Jarred Rod MD PCP - General FAMILY PRACTICE 07/21/15 09/30/20 Shira Shi PA-C [address] [place] [address] PCP - General PHYSICIAN SUGAR REFINERY SUPERVISOR 10/01/20 11/17/20 Jarred Rod MD [address] [place] [address] PCP - General FAMILY PRACTICE 11/18/20 12/05/20 Abiodun Segura II, MD [address] [place] [address] PCP - General FAMILY PRACTICE 12/06/20 01/16/21 Jarred Rod MD [address] [place] [address] PCP - General FAMILY PRACTICE 01/17/21 03/08/21 documented as of this encounter
--- OUTSIDE RECORDS SUMMARY | 2024-03-02 22:30 | XMS_ITS | Encounter Summary ---
Author Organization [facility] Address [address] [place] [address]. [place], [place] [address] [place] [address] Care Team Providers Care Nut Former Name Role Phone Jarred Rod MD Primary Care Provider Unav ailable Shira Shi PA-C Primary Care Provider +1- [phone] Jarred Rod MD Primary Care Provider Unav ailable Colton SILVEIRA MD, Abiodun L Primary Care Provider Jarred Rod MD Primary Care Provider Unav ailable Reason for Visit * Reason Comments CT (SCAN) Encounter Details Date Type Department Care Team (Latest Contact Info) Description 11/12/2019 Scan HEALTH INFO SRVCS Scanned, Documents CT (SCAN) Social History Tobacco Use Types Packs/Day [...] COVID-19? No / Unsure 01/24/2021 11:10 AM CORDUROY BRUSHER OPERATOR documented as of this encounter Functional [...] st Contact Info) Description 03/14/2024 11:45 AM CORDUROY BRUSHER OPERATOR Office Visit [facility] [phone] Marvin Mckeon MD Three [facility] [address] [place], [place] [phone] 03/20/2024 11:30 AM CORDUROY BRUSHER OPERATOR Office Visit [facility] Family Medicine - [place] [phone] Abiodun Segura II, MD [address] [place] [address] documented as of this encounter Procedures Procedure Name Priority Date/Time Associated Diagnosis Comments CT GENERIC 11/12/2019 documented in this encounter Results * CT GENERIC (11/12/2019) Anatomical Region Laterality Modality Other 11/12/2019 Narrative 11/12/2019 Ordered by an unspecified provider. us Documents Scanned SCANNING Final Result documented in this encounter Visit Diagnoses Not on filedocumented in this encounter Additional Health Concerns Infection Onset Date Last Indicated Resolved Time COVID-19 Rule Out 12/13/2019 12/13/2019 12/14/2019 3:06 PM CDT COVID-19 Confirmed 12/13/2019 12/13/2019 0 12:34 AM CORDUROY BRUSHER OPERATOR documented as of this encounter Care Teams Nut Former Relationship Specialty Start Date End Date Jarred Rod MD PCP - General FAMILY PRACTICE 07/21/15 09/30/20 Shira Shi PA-C [address] [place] [phone] PCP - General PHYSICIAN LONG WALL MINING MACHINE TENDER 10/01/20 11/17/20 Jarred Rod MD [address] [place] [address] PCP - General FAMILY PRACTICE 11/18/20 12/05/20 Abiodun Segura II, MD [address] [place] [address] PCP - General FAMILY PRACTICE 12/06/20 01/16/21 Jarred Rod MD [address] [place] [address] PCP - General FAMILY PRACTICE 01/17/21 03/08/21 documented as of this encounter
--- OUTSIDE RECORDS SUMMARY | 2024-03-02 22:30 | XMS_ITS | Encounter Summary ---
Author Organization [facility] Address [address] [place] [address]. [place] [address] [place] [address] Care Team Providers Care Machine Operator Replanter Name Role Phone Jarred Rod MD Primary Care Provider Unav ailable Reason for Referral * Imaging (Routine) - Closed Specialty Diagnoses / Procedures Referred By Lyla chaney Referred To Contact RADIOLOGY Diagnoses Postmenopausal Procedures BONE DENSITY/DEXA Audie Vides PA-C [address] [place] [address] Phone: tel: fax: Referral ID Status Reason Start Date Expiration Date Visits Re quested Visits Authorized [id number] Closed 07/21/2020 08/20/2021 1 1 Reason for Visit * Imaging (Routine) - Closed Specialty Diagnoses / Procedures Referred By Lyla chaney Referred To Contact RADIOLOGY Diagnoses Postmenopausal Procedures BONE DENSITY/DEXA Audie Vides PA-C [address] [place] [address]. [place] [address] Phone: tel: fax: Referral ID Status Reason Start Date Expiration Date Visits Re quested Visits Authorized [id number] Closed 07/21/2020 08/20/2021 1 1 Encounter Details Date Type Department Care Team (Late st Contact Info) Description 07/29/2020 10:00 AM CDT - 07/29/2020 11:59 PM CDT Hospital Encounter [facility] [address] [place] [address] Audie Vides PA-C [address] [place] [address] Discharge Disposition: Home or Self Care (Routine [...] have Coronavirus / COVID-19? No / Unsure 07/29/2020 9:59 AM CDT documented as of this encounter [...] this encounter Medications at Time of Discharge cyclobenzaprine 5 MG tablet Take 5 mg [...] times a day. 3 9 09/25/19 21 nitrofurantoin 50 MG capsule Take 50 [...] mouth nightly at bedtime. 7 07/12/19 22 TRULICITY 1.5 MG/0.5ML Solution Pen-injector Inject 1.5 mg into the skin every 7 days. INJECT ON SUNDAY 0 9 12/24/19 21 documented as of this encounter Plan of Treatment Upcoming Encounters Date Type Department Care Team (Late st Contact Info) Description 03/14/2024 11:45 AM POT PRESS OPERATOR Office Visit [facility] [phone] Marvin Mckeon MD Three [facility] [address] [place] [address] 03/20/2024 11:30 AM POT PRESS OPERATOR Office Visit [facility] Family Medicine - [place] [address] [place] [phone] Abiodun Segura II, MD [address] [place] [address] documented as of this encounter Procedures Procedure Name Priority Date/Time Associated Diagnosis Comments BONE DENSITY/DEXA Routine 07/29/2020 10: 47 AM CDT Postmenopausal documented in this encounter Results * BONE DENSITY/DEXA (07/29/2020 10:47 AM CDT) Anatomical Region Laterality Modality Bone Mammography 07/29/2020 10:5 0 AM CDT Impressions 07/29/2020 10:51 AM CDT IMPRESSION: WHO Classification: normal. FRAX: Less than 0.1% chance of hip fracture and 1.3% chance of major osteoporotic fracture over the next 10 years.. Referred By: AUDIE VIDES Interpreted By: Sanchez Pate MD, 07/29/2020 10:50 AM Narrative 07/29/2020 10:51 AM CDT Examination: Bone Density Axial Exam Date/Time: 07/29/2020 10:20 AM Reason For Exam: ??Postmenopausal ?? Comparison: None Findings: ??DEXA bone densitometry ?The bone mineral density (BMD) was determined by dual-energy x-ray absorptiometry, the results are as follows: ?AP Lumbar Spine L1 through L4 ?BMD Patient (/[facility]): 1.349 ?T-Score (Standard deviations from young adult peak bone density): 2.7 ?Right femoral neck: ?BMD Patient ([facility]): 0.940 ?T-Score (Standard deviations from young adult peak bone density): 0.8 ? Total Right femur: ?BMD Patient (/[facility]): 1.252 ? T-Score (Standard deviations from young adult peak bone density): 2.5 Recommendations: All patients should ensure an adequate intake of dietary calcium and vitamin D. The NOF recommend adults under the age of 50 need 1000 mg of calcium and 400-800 IU of vitamin D daily. Effective therapy for the prevention and treatment of osteoporosis include biphosphonates. Follow-up: People with diagnosed cases of osteoporosis or at high risk for fracture should have regular bone mineral density test. For patients eligible for Medicare, routine testing is allowed once every 2 years. Testing frequency can be increased to one year for patients who have rapidly progressing disease, those who are receiving or discontinuing medical therapy to restore bone mass, or have additional risk factors. Procedure Note Sanchez Pate MD - 07/29/2020 Examination: Bone Density Axial Exam Date/Time: 07/29/2020 10:20 AM Reason For Exam: Postmenopausal Comparison: None Findings: DEXA bone densitometry The bone mineral density (BMD) was determined bydual-energy x-ray absorptiometry, the results are as follows: AP Lumbar Spine L1 through L4 BMD Patient (GM/[facility]): 1.349 T-Score (Standard deviations from young adult peak bonedensity): 2.7 Right femoral neck: BMD Patient (GM/[facility]): 0.940 T-Score (Standard deviations from young adult peak bonedensity): 0.8 Total Right femur: BMD Patient (GM/SQCM): 1.252 T-Score (Standard deviations from young adult peak bonedensity): 2.5 Recommendations: All patients should ensure an adequate intake of dietary calcium andvitamin D. The NOF recommend adults under the age of 50 need 1000 mg ofcalcium and 400-800 IU of vitamin D daily. Effective therapy for theprevention and treatment of osteoporosis include biphosphonates. Follow-up: People with diagnosed cases of osteoporosis or at high risk for fractureshould have regular bone mineral density test. [facility], routine testing is allowed once every 2 years. Testing frequencycan be increased to one year for patients who have rapidly progressingdisease, those who are receiving or discontinuing medical therapy torestore bone mass, or have additional risk factors. IMPRESSION: WHO Classification: normal. FRAX: Less than 0.1% chance of hip fracture and 1.3% chance of majorosteoporotic fracture over the next 10 years.. Referred By: AUDIE VIDES Interpreted By: Sanchez Pate MD, 07/29/2020 10:50 AM us Audie Vides PA-C DEXA Final Resu lt documented in this encounter Visit Diagnoses Diagnosis Postmenopausal Asymptomatic postmenopausal status (age-related) (natural) documented in this encounter Care Teams Machine Operator Replanter Relationship Specialty Start Date End Date Jarred Rod MD PCP - General FAMILY PRACTICE 07/21/15 09/30/20 documented as of this encounter
--- OUTSIDE RECORDS SUMMARY | 2024-03-02 22:30 | XMS_ITS | Encounter Summary ---
Author Organization [facility] Address [address] [place] [address]. [place], [place] [address] [place] [address] Care Team Providers Care Airset Caster Name Role Phone Jarred Rod MD Primary Care Provider Unav ailable Shira Shi PA-C Primary Care Provider +1- [phone] Jarred Rod MD Primary Care Provider Unav ailable Colton SILVEIRA MD, Abiodun L Primary Care Provider Jarred Rod MD Primary Care Provider Unav ailable Encounter Details Date Type Department Care Team (Latest Contact Info) Description 12/29/2019 Scan HEALTH INFO SRVCS Scanned, Documents Social [...] COVID-19? No / Unsure 01/24/2021 11:10 AM CARAMEL CUTTER HAND documented as of this encounter Functional Status [...] st Contact Info) Description 03/14/2024 11:45 AM CARAMEL CUTTER HAND Office Visit [facility] [phone] [facility] [address] [place] [address] 03/20/2024 11:30 AM CARAMEL CUTTER HAND Office Visit [facility] Family Medicine - [place] [address] [place] [phone] Abiodun Segura II, MD [address] [place] [address] documented as of this encounter Visit Diagnoses Not on filedocumented in this encounter Additional Health Concerns Infection Onset Date Last Indicated Resolved Time COVID-19 Confirmed 12/13/2019 12/13/2019 0 12:34 AM CARAMEL CUTTER HAND documented as of this encounter Care Teams Airset Caster Relationship Specialty Start Date End Date Jarred Rod MD PCP - General FAMILY PRACTICE 07/21/15 09/30/20 Shira Shi PA-C [address] [place] [address] PCP - General PHYSICIAN RESTAURANT EXPEDITOR 10/01/20 11/17/20 Jarred Rod MD [address] [place] [address] PCP - General FAMILY PRACTICE 11/18/20 12/05/20 Abiodun Segura II, MD [address] [place] [address] PCP - General FAMILY PRACTICE 12/06/20 01/16/21 Jarred Rod MD [address] [place] [address] PCP - General FAMILY PRACTICE 01/17/21 03/08/21 documented as of this encounter
--- OUTSIDE RECORDS SUMMARY | 2024-03-02 22:30 | XMS_ITS | Encounter Summary ---
Author Organization [facility] Address [address] [place] [address]. [place], [place] [address] [place] [address] Care Team Providers Care Caustic Loader Name Role Phone Colton SILVEIRA MD, Abiodun Rushing Primary Care Provider Encounter Details Date Type Department Care Team (Latest Contact Info) Description 12/14/2020 Travel Social History Tobacco Use Types Packs/Day [...] st Contact Info) Description 03/14/2024 11:45 AM GRAIN WEIGHER Office Visit [facility] [phone] Marvin Mckeon MD [facility] [address] [place], [place] [phone] 03/20/2024 11:30 AM GRAIN WEIGHER Office Visit [facility] Family Medicine - [place] 100 [place] [phone] Abiodun Segura II, MD [address] [place] [phone] documented as of this encounter Visit Diagnoses Not on filedocumented in this encounter Additional Health Concerns Assessment Noted Time PHQ-9 Depression Total Score: 0 10/09/19 21 10:02 AM CDT documented as of this encounter Care Teams Caustic Loader Relationship Specialty Start Date End Date Abiodun Segura II, MD 100 [place] [address] PCP - General FAMILY PRACTICE 12/06/20 01/16/21 documented as of this encounter
--- OUTSIDE RECORDS SUMMARY | 2024-03-02 22:30 | XMS_ITS | Encounter Summary ---
Author Organization [facility] Address [address] [place] [address]. [place], [place] [id number] [place] [address] Care Team Providers Care Director Inbound Sales Name Role Phone Shira Shi PA-C Primary Care Provider [phone] Reason for Referral * Consultation (Routine) - Closed Specialty Diagnoses / Procedures Referred By Lyla chaney Referred To Contact GASTROENTEROLOGY Diagnoses Right upper quadrant abdominal pain Yasmin Segura II, MD [address] [place] [id number] Phone: tel: fax: Deep Jaramillo MD [address] [place] [address] Phone: tel: fax: Referral ID Status Reason Start Date Expiration Date V isits Requested Visits Authorized [id number] Closed Specialty Services 10/08/2020 04/06/2021 6 6 Scheduling Instructions 50yo female with right sided abdominal pain that comes and goes in waves. Unclear etiology. Please evaluate and treat to include colonoscopy if indicated. Thanks. Reason for Visit * Reason Comments Back Pain Patient presents tod ay for a follow up on ongoing Low back pain Encounter Details Date Type Department Care Team (Late st Contact Info) Description 10/08/2020 9:40 AM CDT Office Visit [facility] Family Medicine - [place] [address] [place] [phone] Yasmin Segura II, MD [address] [place] [address] Back Pain (Patient presents today for a follow up on ongoing Low back pain) Social History Tobacco Use Types Packs/Day [...] have Coronavirus / COVID-19? No / Unsure 10/08/2020 9:46 AM CDT documented as of this encounter Last Filed Vital Signs Vital Sign Reading Time Taken Comments Blood Pressure 140/80 10/08/2020 10:04 AM CDT Pulse 91 10/08/2020 9:59 AM CDT Temperature 36.8 ??C (98.2 ??F) 10/08/2020 9:59 AM CD T Respiratory Rate 16 10/08/2020 9:59 AM CDT Oxygen Saturation 99% 10/08/2020 9:59 AM CDT Inhaled Oxygen Concentration - - Weight 91.8 kg (202 lb 6.4 oz) 10/08/2020 9:59 A M CDT Height 167.6 cm (5' 6 ) 10/08/2020 9:59 AM CDT Body Mass Index 32.67 10/08/2020 9:59 AM CDT documented in this encounter Functional [...] Status Yes 08/12/2019 3:00 AM CDT Totty, Shleby A, R N Active documented as of this encounter Mental Status * Because of a physical, mental, or emotional condition, do you have serious difficulty concentrating, remembering, or making decisions? Answer Entry Date Author Status No 08/12/2019 3:00 AM CDT Totty, Shelby A, R N Active documented in this encounter Progress Notes * Yasmin Segura II, MD - 10/08/2020 9:40 AM CDT Images from the original note were not included. [facility] FAMILY [address] [address] OFFICE FOLLOW UP NOTE Encounter Date: 10/08/2020 Chief Complaint: Back Pain (Patient presents today for a follow up on ongoing Low back pain) History of Present Illness: 50-year-old female with type 2 diabetes, hypertension, low back pain, right upper quadrant abdominal pain with cramping, and history of renal calcinosis here to follow-up on lumbar x-ray and to review her symptoms and recommendations for treatment. Patient reports that since switching her metoprolol for amlodipine her blood pressures have remained slightly elevated. She has follow- up with endocrinology next week for her diabetes. Her main complaint is that her right upper quadrant abdominal pain with cramping seems to be slowly getting worse. The pain and cramping is not necessarily related to eating and can be brought on by motion such as bending to tie her shoes. Patient does have history of abdominal surgeries went for laparoscopic in the past. She denies nausea or vomiting or fevers. Review Of Systems: Pt denies any cp/sob/n/v/f/c/cruz All other Systems were reviewed and are negative. Patient Active Problem List Diagnosis ??? Osteomyelitis (CMS/HCC) ??? Cellulitis ??? Diabetic foot ulcer (CMS/HCC) ??? Abdominal pain ??? Hypercholesteremia ??? Hypertension ??? Nephrolithiasis ??? Type 2 diabetes mellitus (CMS/HCC) ??? Renal calcinosis Past Medical History: Diagnosis Date ??? Arthritis [...] Gatherings with Friends and Family: ??? Attends Zoroastrian Services: ??? Active Member of Clubs or Organizations: ??? Attends Club or Organization Meetings: ??? Marital Status: Intimate Partner Violence: ??? Fear of Current or Ex-Partner: ??? Emotionally Abused: ??? Physically Abused: ??? Sexually Abused: There is no immunization history on file for this patient. Current Outpatient Medications Medication Sig Dispense Refill ??? amLODIPine 10 MG tablet Take 1 tablet (10 mg total) by mouth daily. 90 tablet 3 ??? cyclobenzaprine 5 MG tablet Take 5 mg by mouth 3 (three) times daily as needed. ??? HUMALOG MIX 75/25 (75-25) 100 UNIT/ML Suspension Take 55 units in AM and 50 units PM, this should be titrated depending on your blood sugar numbers. (Patient taking differently: Inject 55-65 Units into the skin see administration instructions. Take 65 units in AM and 55 units PM, this should betitrated depending on your blood sugar numbers.) 1 vial 1 ??? hydrochlorothiazide 25 MG tablet Take 25 mg by mouth nightly. ??? lisinopril 40 MG tablet Take 40 mg by mouth nightly. ??? methocarbamol (ROBAXIN) 500 MG tablet Take one tablet by mouth 4 times per day as needed for muscle spasms. 60 tablet 5 ??? Misc. Devices (PILL SPLITTER) [...] for Nausea. 20 tablet 0 ??? simvastatin 40 MG tablet Take 40 mg by mouth nightly at bedtime. ??? spironolactone 25 MG tablet Take 0.5 tablets (12.5 mg total) by mouth daily. 45 tablet 3 ??? TRULICITY 1.5 MG/0.5ML Solution Pen-injector Inject 1.5 mg into the skin every 7 days. INJECT ON SUNDAY 0 ??? docusate sodium 100 MG capsule Take 1 capsule (100 mg total) by mouth 2 (two) times daily. (Patient taking differently: Take 100 mg by mouth 2 (two) times daily as needed. ) 30 capsule 0 ??? HYDROcodone-acetaminophen 5-325 MG tablet Take 1-2 tablets by mouth every 6 (six) hours as needed for Pain. Indications: Acute Pain < 7 Day Supply For Moderate Pain 10 tablet 0 ??? HYDROcodone-acetaminophen 5-325 MG tablet Take 1-2 tablets by mouth every 6 (six) hours as needed. Indications: Acute Pain < 7 Day Supply 20 tablet 0 ??? nitrofurantoin 50 MG capsule Take 50 mg by mouth see administration instructions. Take 50mg thesame day or early the day after you have intercourse No current facility-administered medications for this visit. Allergies Allergen Reactions ??? Amoxicillin Rash ??? Penicillins Rash Objective: Filed Vitals: 10/08/20 0959 10/08/20 1004 BP: (!) 146/88 (!) 140/80 Pulse: 91 Resp: 16 Temp: 98.2 ??F (36.8 ??C) TempSrc: Temporal SpO2: 99% Weight: 91.8 kg (202 lb 6.4 oz) Height: 5' 6 (1.676 m) PainSc: 7 Moderate Pain (0-10 Scale) Nursing note reviewed. Physical Exam Vitals and [...] Abdomen is flat. Bowel sounds are normal. There is no distension. Palpations: Abdomen is soft. Tenderness: There is abdominal tenderness in the right upper quadrant. There is no guarding. Positive signs include Chow's sign. Hernia: No hernia is present. Musculoskeletal: General: Normal range of motion. Cervical [...] orders placed or performed in visit on 09/30/20 HEMOGLOBIN, GLYCOSYLATED Result Value Ref Range HGB A1C 8.2 % Counseling The patient and patient's family was counseled regarding instructions for management, patient and family education and importance of compliance with treatment. Assessment: 1. Primary hypertension COMPREHENSIVE METABOLIC PANEL spironolactone 25 MG tablet Misc. Devices (PILL SPLITTER) Misc 2. Type 2 diabetes mellitus with diabetic neuropathic arthropathy, with long- term current use of insulin (CMS/HCC) 3. Right upper quadrant abdominal pain US ABD LIMITED Amb[place] ([facility] 4. Muscle spasm methocarbamol (ROBAXIN) 500 MG tablet 5. Renal calcinosis COMPREHENSIVE METABOLIC PANEL 6. Encounter for hepatitis C screening test for low risk patient HEPATITIS C ANTIBODY Plan: Orders Placed This Encounter Medications ??? methocarbamol (ROBAXIN) 500 MG tablet ??? spironolactone 25 MG tablet ??? Misc. Devices (PILL SPLITTER) Misc 1. Primary hypertension Patient's blood pressure is not at goal of 130/80. Discussed treatment options. We will add spironolactone 12.5 mg once a day, repeat metabolic panel in 1 week and follow-up with me in 2 weeks. - COMPREHENSIVE METABOLIC PANEL; Future - spironolactone 25 MG tablet; Take 0.5 tablets (12.5 mg total) by mouth daily. Dispense: 45 tablet; Refill: 3 - Misc. Devices (PILL SPLITTER) Misc; 1 Device by Does not apply route daily. Dispense: 1 each; Refill: 1 2. Type 2 diabetes mellitus with diabetic neuropathic arthropathy, with long- term current use of insulin (CMS/HCC) Patient to follow-up with endocrinology as scheduled next week for additional recommendations. 3. Right upper quadrant abdominal pain Patient's right upper quadrant abdominal pain is suspicious for gallbladder disease. Will order right upper quadrant ultrasound to evaluate. We will also order gastroenterology consult to consider colonoscopy. Patient's pain may be secondary to adhesions from previous surgeries, so far work-up doesnot reveal a source may consider general surgery consult for recommendations. - US ABD LIMITED; Future - Ambulatory referral to Gastroenterology ( [place]) 4. Muscle spasm We will try Robaxin 500 mg 4 times a day as needed for muscle spasm to see if this helps control her symptoms. - methocarbamol (ROBAXIN) 500 MG tablet; Take one tablet by mouth 4 times per day as needed for muscle spasms. Dispense: 60 tablet; Refill: 5 5. Renal calcinosis We will check metabolic panel to continue to monitor creatinine with medication changes. - COMPREHENSIVE METABOLIC PANEL; Future 6. Encounter for hepatitis C screening test for low risk patient We will also order hepatitis C antibody screen per [place] preventive task force guidelines. - HEPATITIS C ANTIBODY; Future There are no discontinued medications. YASMIN SEGURA MD 10/08/2020 documented in this encounter Plan of Treatment Upcoming Encounters Date Type Department Care Team (Late st Contact Info) Description 03/14/2024 11:45 AM MERCHANT MILLER Office Visit [facility] [phone] Marvin Mckeon MD [address] [facility] [address] [place], [place] [id number] 03/20/2024 11:30 AM MERCHANT MILLER Office Visit [facility] Family Medicine - [place] [address] [place] [phone] Yasmin Segura II, MD [address] [place] [id number] Scheduled Referrals Name Type Priority Associated Diagnoses Orde r Schedule Ambulatory referral to Gastroenterology ( ) Referral Routine Right upper quadrant abdominal pain Ordered: 10/08/2020 documented as of this encounter Visit Diagnoses Diagnosis Primary hypertension- Primary Unspecified essential hypertension Type 2 diabetes mellitus with diabetic neuropathic arthropathy, with long-term current use of insulin ([facility]) Right upper quadrant abdominal pain Abdominal pain, right upper quadrant Muscle spasm Spasm of muscle 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 Encounter for hepatitis C screening test for low risk patient documented in this encounter Additional Health Concerns Assessment Noted Time PHQ-9 Depression Total Score: 0 10/09/19 21 10:02 AM CDT documented as of this encounter Care Teams Director Inbound Sales Relationship Specialty Start Date End Date Shira Shi PA-C [address] [place] [id number] PCP - General PHYSICIAN MANAGER REPORTING 10/01/20 11/17/20 documented as of this encounter
--- OUTSIDE RECORDS SUMMARY | 2024-03-02 22:30 | XMS_ITS | Encounter Summary ---
Author Organization [facility] Address [address] [place] [address]. [place] [address] [place] [address] Care Team Providers Care Business Operations Specialist Name Role Phone Jarred Rod MD Primary Care Provider Unav ailable Reason for Referral * Imaging (Emergency) - Closed Specialty Diagnoses / Procedures Referred By Lyla chaney Referred To Contact RADIOLOGY Procedures CT ABD+PEL W CON Hubert Sullivan MD [address] [address] Phone: tel: fax: Referral ID Status Reason Start Date Expiration Date Visits Re quested Visits Authorized [id number] Closed 12/13/2019 01/12/2021 1 1 Reason for Visit * Reason Comments Flu Like Symptoms Abdominal Pain Encounter Details Date Type Department Care Team (Late st Contact Info) Description 12/13/2019 3:54 AM CDT - 12/13/2019 6:[address] [facility] [place] [address] Hubert Sullivan MD [address] [id number] Flu Like Symptoms; Abdominal Pain Discharge Disposition: Home or Self [...] have Coronavirus / COVID-19? No / Unsure 12/13/2019 2:57 AM CDT documented as of this encounter Last Filed Vital Signs Vital Sign Reading Time Taken Comments Blood Pressure 174/84 12/13/2019 5:30 AM CDT Pulse 103 12/13/2019 5:30 AM CDT Temperature 36.2 ??C (97.1 ??F) 12/13/2019 3:02 AM CD T Respiratory Rate 18 12/13/2019 5:30 AM CDT Oxygen Saturation 100% 12/13/2019 5:30 AM CDT Inhaled Oxygen Concentration - - Weight 88.9 kg (196 lb) 12/13/2019 3:02 AM CDT Height 167.6 cm (5' 6 ) 12/13/2019 3:02 AM CDT Body Mass Index 31.64 12/13/2019 3:02 AM CDT documented in this encounter Functional [...] No 08/12/2019 3:00 AM CDT Shelby Martinez RN Active * Do you have difficulty [...] this encounter Discharge Instructions * Discharge Instructions* Hubert Sullivan MD - 12/13/2019 6:08 AM CDT Our practice is committed to providing you the very best in healthcare. We want to hear from you! Please fill out the survey you get from us. Your feedback is anonymous and helps us improve the patient experience for you and others in the community we serve. * Attachments The following attachments cannot be sent through Care Everywhere. * Preventing the Spread of an Infectious Disease (Nigerien) * Viral Syndrome Discharge Instructions (Nigerien) documented in this encounter Medications at Time of Discharge cyclobenzaprine 5 MG tablet Take 5 mg by mouth 3 (three) times daily as needed. 09/22/2019 1 docusate sodium 100 MG capsule Take 1 capsule (100 mg total) by mouth 2 (two) times daily. 30 capsule 05/01/2019 1 HUMALOG MIX 75/25 (75-25) 100 UNIT/ML Suspension Take 55 units in AM and 50 units PM, this should be titrated depending on your blood sugar numbers. 1 vial 1 02/08/2017 2 hydrochlorothiazide 25 MG tablet Take 25 mg by mouth nightly. 1 HYDROcodone-acetamin ophen 5-325 MG tabletIndications:Ac kake Pain < 7 Day Supply Take 1-2 tablets by mouth every 6 (six) hours as needed for Pain. Indications: Acute Pain < 7 Day Supply For Moderate Pain 10 tablet 11/05/2019 1 HYDROcodone-acetamin ophen 5-325 MG tabletIndications:Ac kake Pain < 7 Day Supply Take 1-2 tablets by mouth every 6 (six) hours as needed. Indications: Acute Pain < 7 Day Supply 20 tablet 11/12/2019 1 lisinopril 40 MG tablet Take 40 mg by mouth nightly. 11/03/2016 2 metoprolol tartrate 50 MG tablet Take 50 mg by mouth 2 (two) times a day. 3 06/14/2018 1 ondansetron 4 MG disintegrating tablet Take 1 tablet (4 mg total) by mouth every 8 (eight) hours as needed for Nausea. 20 tablet 12/13/2019 1 simvastatin 40 MG tablet Take 40 mg by mouth nightly at bedtime. 11/03/2016 2 TRULICITY 1.5 MG/0.5ML Solution Pen-injector Inject 1.5 mg into the skin every 7 days. INJECT ON SUNDAY 0 10/07/2018 1 documented as of this encounter Nursing Notes * Mary Beth Norman RN - 12/13/2019 6:35 AM CDT CRITICAL COVID POSITIVE RESULT RECEIVED.[facility] DEPT NOTIFIED VIA FAX documented in this encounter ED Notes * Hubert Sullivan MD - 12/13/2019 4:29 AM CDT Emergency Department Note Chief Complaint Chief Complaint Patient presents with ??? Flu Like Symptoms ??? Abdominal Pain History of Present Illness The patient is a 49-year-old female who presents with body aches, fatigue, malaise. She reports symptoms of been going on for 6 days. She reports fevers. She reports epigastric pain radiating up intothe chest. She reports this evening she started vomiting. She has been taking Tylenol without relief. She reports normal bowel movements. No urinary complaints. She denies any shortness of breath or cough. No sore throat. Reports nausea and vomiting. Medical History ALLERGIES: Allergies Allergen Reactions ??? Amoxicillin Rash ??? Penicillins Rash MEDICATIONS: Prior to Admission medications Medication Sig Start Date End Date Taking? Authorizing Provider ondansetron 4 MG disintegrating tablet Take 1 tablet (4 mg total) by mouth every 8 (eight) hours asneeded for Nausea. 12/13/19 Yes Hubert Sullivan MD cyclobenzaprine 5 MG tablet TAKE 1 TABLET BY MOUTH THREE TIMES DAILY NEEDED FOR MUSCLE SPASM 09/22/19 Doc Abstract docusate sodium 100 MG [...] 7 Day Supply For Moderate Pain 11/05/19 Yun Chappell MD HYDROcodone-acetaminophen 5-325 MG tablet Take 1-2 tablets by mouth every 6 (six) hours as needed. Indications: Acute Pain < 7 Day Supply 11/12/19 Kvng Lewis MD lisinopril 40 MG tablet Take 40 mg by mouth nightly. 11/03/16 Doc Abstract metoprolol tartrate 50 MG tablet Take 50 mg by mouth 2 (two) times a day. 06/14/18 Doc Abstract simvastatin 40 MG tablet Take 40 mg [...] Review of Systems Review of Systems Constitutional: Tactile fevers Eyes: Denies visual changes HENT: Denies sore throat or ear pain. Respiratory: Denies shortness of breath. Cardiovascular: See HPI GI: See HPI Musculoskeletal: Denies back pain Skin: Denies rash. Neurologic: Denies headache Endocrine: Denies hypoglycemia Lymphatic: Denies swollen glands. Psychiatric: Denies depression, SI See HPI for further details. All systems negative except as marked. Physical Exam Filed Vitals: 12/13/19 0302 12/13/19 0530 BP: (!) 139/92 (!) 174/84 Pulse: 112 103 Resp: 18 18 Temp: 97.1 ??F (36.2 ??C) TempSrc: Temporal SpO2: 100% 100% Weight: 88.9 kg (196 lb) Height: 5' 6 (1.676 m) Physical Exam Constitutional: Well developed, Well nourished, No acute distress, Non-toxic appearance. HEENT: Normocephalic, Atraumatic, Bilateral external ears normal, EOMI, Conjunctiva normal, No discharge.Oropharynx moist, Nose normal. Respiratory: Normal breath sounds, No respiratory distress. Cardiovascular: Tachycardic GI: Soft, epigastric abdominal tenderness Neck: Normal range of motion, No tenderness, Supple, No stridor. Back: No tenderness Extremities: Intact distal pulses, No edema, No tenderness, Good range of motion in all major joints. Skin: Warm, Dry, No erythema, No rash. Neurologic: Alert & oriented x 3, Normal motor function, Normal sensory function, No focal deficits noted. Psychiatric: Affect normal, Judgment normal, Mood normal. Medical decision making: Problem list: Epigastric abdominal pain, nausea, fatigue, malaise Differential: Viral syndrome, Covid, influenza, cholecystitis, diverticulitis, abscess, other Plan for labs, lipase, LFTs, troponin, EKG, chest x-ray, CT abdomen pelvis Treat with fluids, Zofran Diagnostic Studies / Procedures ELECTROCARDIOGRAMS: EKG shows sinus tachycardia. Rate of 103. Normal PA interval, normal QTC. No signs of acute ischemia. PULSE OX: SpO2: 100 % Interpretation: Normal LABORATORY STUDIES: Results for orders placed or performed during the hospital encounter of 12/13/19 CBC W/DIFF AUTOMATED Result Value Ref Range WBC 8.3 4.5 - 11.0 x10'3/uL RBC 3.84 (L) 4.20 - 5.40 x10'6/uL HGB 11.8 (L) 12.0 - 16.0 G/DL HCT 34.7 (L) 38.0 - 48.0 % MCV 90.4 81.0 - 99.0 FL MCH 30.7 27.0 - 31.0 PG MCHC 34.0 32.0 - 36.0 G/DL RDW 12.7 11.5 - 14.5 % PLT 224 130 - 400 x10'3/uL MPV 11.3 9.3 - 12.2 FL DIFFERENTIAL TYPE AUTOMATED DIFFERENTIAL NEUTROPHILS 79.3 % LYMPHOCYTES 14.5 % MONOCYTES 5.3 % EOSINOPHILS 0.2 % BASOPHILS 0.2 % IMMATURE GRANS 0.5 % ABS. NEUTROPHILS TOTAL 6.59 1.80 - 7.70 x10'3/uL ABS. LYMPHOCYTES 1.21 1.00 - 4.80 x10'3/uL ABS. MONOCYTES 0.44 0.24 - 0.86 x10'3/uL ABS. EOSINOPHILS 0.02 (L) 0.04 - 0.36 x10'3/uL ABS. BASOPHILS 0.02 0.01 - 0.08 x10'3/uL ABS. IMMATURE GRANULOCYTES 0.04 0.00 - 0.49 x10'3/uL COMPREHENSIVE METABOLIC PANEL Result Value Ref Range GLUCOSE 240 (H) 70 - 99 MG/DL BUN 18 7 - 18 MG/DL CREATININE S/P/B 1.03 (H) 0.55 - 1.02 MG/DL SODIUM 134 (L) 136 - 145 MMOL/L POTASSIUM 4.4 3.5 - 5.1 MMOL/L CHLORIDE S/P/B 101 100 - 108 MMOL/L CO2 24.7 21 - 32 MMOL/L CALCIUM 9.0 8.5 - 10.1 MG/DL BILIRUBIN TOTAL S/P/B 0.3 0.2 - 1.2 MG/DL TOTAL PROTEIN S/P/B 8.9 (H) 6.4 - 8.2 G/DL ALBUMIN S/P/B 3.3 (L) 3.4 - 5.0 G/DL AST 30 15 - 37 U/L ALT 48 14 - 55 U/L ALKALINE PHOSPHATASE S/P/B 130 50 - 136 U/L ANION GAP 8.3 5 - 15 MMOL/L BUN CREATININE RATIO 17.5 6 - 26 A/G RATIO 0.6 (L) 1.0 - 2.0 RATIO eGFR Non-Afr. Amer. 64 (L) >90 ML/MIN/1.73 M2 eGFR Afr. Amer. 74 (L) >90 ML/MIN/1.73 M2 TROPONIN, QUANT Result Value Ref Range TROPONIN I <0.015 <0.045 ng/mL. LIPASE Result Value Ref Range LIPASE 99 73 - 393 UNITS/L INFLUENZA A & B Specimen: NASOPHARYNGEAL SWAB Result Value Ref Range Specimen Type QC RESULTS ARE VALID INFLUENZA A NEGATIVE NEGATIVE INFLUENZA B NEGATIVE NEGATIVE IMAGING STUDIES Ct Abd+pel W Con Result Date: 12/13/2019 Impression: 1. New nodular type groundglass opacities throughout the lung bases is worrisome for nodular type pneumonia. Please correlate for COVID-19. 2. Unchanged moderate to severe right hydronephrosis with parenchymal thinning. 3. No acute findings within the abdomen or pelvis. Interpreted By: Hubert Rizo MD, 12/13/2019 5:52 AM Xr Chest Pa+lat Result Date: 12/13/2019 Impression: No acute cardiopulmonary disease process. Interpreted By: Hubert Rizo MD, 12/13/2019 5:13 AM ED Course Imaging concerning for viral pneumonia. Patient tested for Covid. Flu swab negative. Labs otherwisebenign. I discussed with the patient the workup as well as plan of care. I discussed medications and well as other therapies needed. I discussed with the patient follow-up instructions as well as return precautions. The patient agrees with the plan of care and is stable for discharge at this time. Medications ondansetron (ZOFRAN) injection 4 mg (4 mg Intravenous Given 12/13/19 0451) sodium chloride 0.9% bolus infusion SOLN 1,000 mL (0 mLs Intravenous Infusion Stop Time 12/13/19 0608) iopamidol (ISOVUE-370) 76 % injection 100 mL (100 mLs Intravenous Given 12/13/19 0547) Clinical Impression Suspected COVID-19 virus infection (Primary) Viral syndrome Current Discharge Medication List START taking these medications Details ondansetron 4 MG disintegrating tablet Take 1 tablet (4 mg total) by mouth every 8 (eight) hours asneeded for Nausea. Qty: 20 tablet, Refills: 0 Class: Print Pharmacy: [facility] [address] [place] [address] (Ph #: [phone]) Disposition: Discharge Follow-Up: Jarred Rod MD [address] [place] [phone] Call in 1 day HUBERT SULLIVAN MD 12/13/2019 Hubert Sullivan MD 12/13/[address] * Raine Ferraro RN - 12/13/2019 2:59 AM CDT Patient arrived to er via triage with c/o bodyth aches, upper abdominal pain, headache, chills since the , has not been seen for this issue and started with vomiting tonight. Pain rated 10/10, took nothing prior to arrival for pain. documented in this encounter Plan of Treatment Upcoming Encounters Date Type Department Care Team (Late st Contact Info) Description 03/14/2024 11:45 AM HYDRAULIC RUBBISH COMPACTOR MECHANIC Office Visit [facility] [address] [phone] Marvin Mckeon MD [address] [facility] [address] [place] [address] 03/20/2024 11:30 AM HYDRAULIC RUBBISH COMPACTOR MECHANIC Office Visit [facility] [place] [address] [place] [phone] Abiodun Segura II, MD [address] [place] [address] documented as of this encounter Procedures Procedure Name Priority Date/Time Associated Diagnosis Comments CORONAVIRUS (COVID 19) STAT 0 6:[address] ABD+PEL W CON STAT 12/13/2019 5:46 AM CDT XR CHEST PA+LAT STAT 12/13/2019 5:09 AM CDT ECG 12-LEAD STAT 12/13/2019 5:09 AM CDT INFLUENZA A & B STAT 12/13/2019 4:47 AM CDT COMPREHENSIVE METABOLIC PANEL STAT 12/13/2019 4:42 AM CDT CBC W/DIFF AUTOMATED STAT 12/13/2019 4:42 AM CDT TROPONIN, QUANT STAT 12/13/2019 4:42 AM CDT LIPASE STAT 12/13/2019 4:42 AM CDT documented in this encounter Results * (ABNORMAL) CORONAVIRUS (COVID 19) PCR [facility] (12/13/2019 6:21 AM CDT) CORONAVIRUS SARS COV 2 PCR (RESP) DETECTED(A) NOT DETECTED 12/14/2019 3:06 PM CDT [facility] Comment: A Detected result is considered a positive test result for COVID-19. ??This indicates that RNA from SARS-CoV-2 (formerly 2019-nCoV) was detected, and the patient is infected with the virus and presumed to be contagious. If requested by public health authority, specimen will be sent for additional testing. Please review the Fact Sheets and FDA authorized labeling available for health care providers and patients using the following websites: [email or web address]/fact-[email or web address]/[email or web address]/ fact-sheet2 This test has been authorized by the FDA under an Emergency Use Authorization (EUA) for use by authorized laboratories. Due to the current public health emergency, [employer] [facility] is receiving a high volume of samples from a wide variety of swabs and media for COVID-19 testing. In order to serve patients during this public health crisis, samples from appropriate clinical sources are being tested. Negative test results derived from specimens received in non-commercially manufactured viral collection and transport media, or in media and sample collection kits not yet authorized by FDA for COVID-19 testing should be cautiously evaluated and the patient potentially subjected to extra precautions such as additional clinical monitoring, including collection of an additional specimen. Methodology: ??Nucleic Acid Amplification Test (NAAT) includes RT-PCR or TMA Additional information about COVID-19 can be found at the [employer] website: [email or web address]. Test performed at [facility] [address] ??[phone] Director: JOE FORBES DO,MPH FIRST TEST YES 12/13/2019 6:15 AM CDT [facility] EMPLOYED IN HEALTHCARE NO 12/13/2019 6:15 AM CDT [facility] SYMPTOMATIC DEFINED BY CDC YES 12/13/2019 6:15 AM CDT [facility] DATE OF SYMPTOM ONSET 2019121212/13/2019 6:15 AM CDT [facility] HOSPITALIZATION STATUS NO 12/13/2019 6:15 AM CDT [facility] PATIENT IN ICU NO 12/13/2019 10:59 AM CDT [facility] RESIDENT OF CONGREGATE CARE NO 12/13/2019 6:15 AM CDT [facility] NOT 12/13/2019 6:15 AM CDT [facility] PATIENT'S RACE BLACK OR 12/13/2019 6:15 AM CDT [facility] ETHNICITY NONHISPANIC 12/13/2019 6:15 AM CDT [facility] SOURCE (QST) NASOPHARYNGEAL SWAB 12/13/2019 6:15 AM CDT [facility] NASOPHARYNGEAL SWAB / Unknown 12/13/2019 6:21 AM CDT us Hubert Sullivan MD MICROBIOLOGY - GENERA L ORDERABLES Final Result Performing Organization Address City/State/[facility] Co de Phone Number [facility] [address] [place] [address], [place] [phone] [facility] [address] [address], [place] * CT ABD+PEL W CON (12/13/2019 5:46 AM CDT) Anatomical Region Laterality Modality Abdomen Computed Tomogra phy 12/13/2019 5:52 AM CDT Impressions 12/13/2019 5:56 AM CDT Impression: 1. ??New nodular type groundglass opacities throughout the lung bases is worrisome for nodular type pneumonia. ??Please correlate for COVID-19. 2. ??Unchanged moderate to severe right hydronephrosis with parenchymal thinning. 3. ??No acute findings within the abdomen or pelvis. Interpreted By: Hubert Rizo MD, 12/13/2019 5:52 AM Narrative 12/13/2019 5:56 AM CDT Date: 12/13/2019 5:28 AM Exam: CT ABD+PEL W CON Comparison: CT abdomen and pelvis dated 11/12/2019. Technique: Thin section images were obtained of the abdomen and pelvis with IV contrast. ??100 mL of Isovue-370 through existing IV site. ??Coronal and sagittal reconstructions. ??A dose lowering technique was used for this procedure, which may include, but is not limited to, dose reduction technique, automated exposure control, the use of iterative reconstruction, and ALARA (As Low As Reasonably Achievable)/ Image gently techniques. History: Bodyaches, upper abdominal pain, headache, chills since 12/07/2019. ??Vomiting tonight. ??Pain as 10 out of 10 in severity. Findings: Visualized lower chest: There are patchy nodular type groundglass opacities in the lung bases possibly infectious in nature. Please correlate for COVID-19. ??There are no pleural effusions. ??The visualized inferior heart is normal in size. The abdomen and pelvis: There is diffuse steatosis of the liver. ??The liver is otherwise unremarkable. ??The gallbladder, bile ducts, spleen, pancreas appear normal. ??The adrenal glands are normal. ??There is a small nonobstructing calculus in the mid left kidney unchanged. ??There is stable considerable hydronephrosis in the right kidney with renal parenchymal thinning. ??There is scattered calcified disease in the abdominal aorta. ??The abdominal aorta, IVC and iliac vessels appear patent. ??There is no lymphadenopathy. The stomach is nondistended, but appears normal. ??There is no bowel obstruction nor acute intestinal abnormality. ??The appendix is normal. ??There is no inflammation, free fluid nor free air. ??The urinary bladder appears normal. ??The uterus is surgically absent. ??The adnexa appear normal. ??There are stable ovarian vein phleboliths. Osseous structures: There is no acute osseous abnormality. Procedure Note Hubert Rizo MD - 12/13/2019 Date: 12/13/2019 5:28 AM Exam: CT ABD+PEL W CON Comparison: CT abdomen and pelvis dated 11/12/2019. Technique: Thin section images were obtained of the abdomen and pelviswith IV contrast. 100 mL of Isovue-370 through existing IV site. Coronaland sagittal reconstructions. A dose lowering technique was used for thisprocedure, which may include, but is not limited to, dose reductiontechnique, automated exposure control, the use of iterativereconstruction, and ALARA (As Low As Reasonably Achievable)/ Image gentlytechniques. History: Bodyaches, upper abdominal pain, headache, chills since12/07/2019. Vomiting tonight. Pain as 10 out of 10 in severity. Findings: Visualized lower chest: There are patchy nodular type groundglassopacities in the lung bases possibly infectious in nature. Pleasecorrelate for COVID-19. There are no pleural effusions. The visualizedinferior heart is normal in size. The abdomen and pelvis: There is diffuse steatosis of the liver. Theliver is otherwise unremarkable. The gallbladder, bile ducts, spleen,pancreas appear normal. The adrenal glands are normal. There is a smallnonobstructing calculus in the mid left kidney unchanged. There is stableconsiderable hydronephrosis in the right kidney with renal parenchymalthinning. There is scattered calcified disease in the abdominal aorta.The abdominal aorta, IVC and iliac vessels appear patent. There is nolymphadenopathy. The stomach is nondistended, but appears normal. There is no bowelobstruction nor acute intestinal abnormality. The appendix is normal.There is no inflammation, free fluid nor free air. The urinary bladderappears normal. The uterus is surgically absent. The adnexa appearnormal. There are stable ovarian vein phleboliths. Osseous structures: There is no acute osseous abnormality. Impression: 1. New nodular type groundglass opacities throughout the lung bases isworrisome for nodular type pneumonia. Please correlate for COVID-19. 2. Unchanged moderate to severe right hydronephrosis with parenchymalthinning. 3. No acute findings within the abdomen or pelvis. Interpreted By: Hubert Rizo MD, 12/13/2019 5:52 AM us Hubert Sullivan MD CT Final Result * XR CHEST PA+LAT (12/13/2019 5:09 AM CDT) Anatomical Region Laterality Modality Chest Radiographic Shelli ging 12/13/2019 5:13 AM CDT Impressions 12/13/2019 5:16 AM CDT Impression: No acute cardiopulmonary disease process. Interpreted By: Hubert Rzio MD, 12/13/2019 5:13 AM Narrative 12/13/2019 5:16 AM CDT Date: 12/13/2019 4:34 AM Exam: XR CHEST PA+LAT Comparison: Chest radiography dated 09/22/2019. Technique: Two-view chest. History: Chest pain. Findings: The cardiac silhouette and pulmonary vascularity are within normal limits. ??The lungs are clear without consolidation or pleural effusion. ??There is no pneumothorax. ??The osseous structures appear normal. Procedure Note Hubert Rizo MD - 12/13/2019 Date: 12/13/2019 4:34 AM Exam: XR CHEST PA+LAT Comparison: Chest radiography dated 09/22/2019. Technique: Two-view chest. History: Chest pain. Findings: The cardiac silhouette and pulmonary vascularity are withinnormal limits. The lungs are clear without consolidation or pleuraleffusion. There is no pneumothorax. The osseous structures appearnormal. Impression: No acute cardiopulmonary disease process. Interpreted By: Hubert Rizo MD, 12/13/2019 5:13 AM Hubert Sullivan MD GENERAL IMAGING Final Result * ECG 12 lead (12/13/2019 5:09 AM CDT) 12/13/2019 5:09 AM CDT Narrative [facility] ([facility] RAD - 12/13/2019 7:32 AM CDT ?[facility] ? [address], [place] ? Test Date: ?2019-12-13 Pat Name: ? LENA YOUNGBLOOD ?Department: ? Room: ? [id number] Gender: ? Female ? Game Tester: ?? DK : ?1970 ? Requested By: HUBERT SULLIVAN Order Number: [id number] ? Reading MD: ?? Benjamin Lauren ? Measurements Intervals ?[place] ? Rate: ? 103 ?P: ?46 PA: ? 175 ?QRS: ?22 QRSD: ? 76 ? T: ?38 QT: ? 338 ? QTc: ?443 ? Interpretive Statements SINUS TACHYCARDIA NONSPECIFIC T-WAVE ABNORMALITY ABNORMAL RHYTHM ECG Compared to ECG 09/22/2019 14:59:23 No significant changes Procedure Note Benjamin Lauren MD - 12/13/[address] Test Date: 2019-12-13 Pat Name: LENA YOUNGBLOOD Department: Room: [place] [address] Gender: Female Game Tester: BLAIR : 1970 Requested By: HUBERT SULLIVAN Order Number: [id number] Reading MD: Benjamin Lauren Measurements Intervals [place] Rate: 103 P: 46 PA: 175 QRS: 22 QRSD: 76 T: 38 QT: 338 QTc: 443 Interpretive Statements SINUS TACHYCARDIA NONSPECIFIC T-WAVE ABNORMALITY ABNORMAL RHYTHM ECG Compared to ECG 09/22/2019 14:59:23 No significant changes Hubert Sullivan MD ECG ORDERABLES Final Result Performing Organization Address City/State/[facility] Co de Phone Number [facility] RAD * INFLUENZA A & B (12/13/2019 4:47 AM CDT) SPECIMEN TYPE QC RESULTS ARE VALID 12/13/2019 5:14 AM CDT [facility] INFLUENZA A NEGATIVE NEGATIVE 12/13/2019 5:14 AM CDT [facility] INFLUENZA B NEGATIVE NEGATIVE 12/13/2019 5:14 AM CDT [facility] Comment: Interpretation: Negative for Influenza [...] testing with RT-PCR requires a separate order. NASOPHARYNGEAL SWAB / Unknown 12/13/2019 4:47 AM CDT us Hubert Sullivan MD MICROBIOLOGY - GENERA L ORDERABLES Final Result [facility] [address] [place] [address], [place] [phone] * LIPASE (12/13/2019 4:42 AM CDT) LIPASE 99 73 - 393 UNITS/L 12/13/2019 5:25 AM CDT [facility] 12/13/2019 4:42 AM CDT us Hubert Sullivan MD LABORATORY Final Result Performing Organization Address [facility] Co de Phone Number [facility] [address] [place] [address], [place] [phone] * TROPONIN, QUANT (12/13/2019 4:42 AM CDT) TROPONIN I <0.015 <0.045 ng/mL. 12/13/2019 5:25 AM CDT [facility] Comment: HIGH DOSES OF BIOTIN MAY INTERFERE WITH THIS TEST RESULT. CORRELATION TO CLINICAL HISTORY AND PRESENTATION RECOMMENDED. 12/13/2019 4:42 AM CDT us Hubert Sullivan MD LABORATORY Final Result Performing Organization Address City/[facility]/ZIP Co de Phone Number [facility] [address] [place] [address], [place] [phone] * (ABNORMAL) COMPREHENSIVE METABOLIC PANEL (12/13/2019 4:42 AM CDT) [facility] GLUCOSE 240(H) 70 - 99 MG/DL 12/13/2019 5:25 AM CDT [facility] BUN 18 7 - 18 MG/DL 12/13/2019 5:25 AM CDT [facility] CREATININE S/P/B 1.03(H) 0.55 - 1.02 MG/DL 12/13/2019 5:25 AM CDT [facility] SODIUM S/P/B 134(L) 136 - 145 MMOL/L 12/13/2019 5:25 AM CDT [facility] POTASSIUM S/P/B 4.4 3.5 - 5.1 MMOL/L 12/13/2019 5:25 AM CDT [facility] CHLORIDE S/P/B 101 100 - 108 MMOL/L 12/13/2019 5:25 AM CDT [facility] CO2 24.7 21 - 32 MMOL/L 12/13/2019 5:25 AM CDT [facility] CALCIUM S/P/B 9.0 8.5 - 10.1 MG/DL 12/13/2019 5:25 AM CDT [facility] BILIRUBIN TOTAL S/P/B 0.3 0.2 - 1.2 MG/DL 12/13/2019 5:25 AM CDT [facility] Comment: THIS ASSAY IS NOT RECOMMENDED FOR PATIENTS UNDERGOING TREATMENT WITH ELTROMBOPAG DUE TO THE POTENTIAL FOR FALSELY ELEVATED RESULTS. TOTAL PROTEIN S/P/B 8.9(H) 6.4 - 8.2 G/DL 12/13/2019 5:25 AM CDT [facility] ALBUMIN S/P/B 3.3(L) 3.4 - 5.0 G/DL 12/13/2019 5:25 AM CDT [facility] AST 30 15 - 37 U/L 12/13/2019 5:25 AM CDT [facility] ALT 48 14 - 55 U/L 12/13/2019 5:25 AM CDT [facility] ALKALINE PHOSPHATASE S/P/B 130 50 - 136 U/L 12/13/2019 5:25 AM CDT [facility] ANION GAP 8.3 5 - 15 MMOL/L 12/13/2019 5:25 AM CDT [facility] BUN CREATININE RATIO 17.5 6 - 26 12/13/2019 5:25 AM CDT [facility] A/G RATIO 0.6(L) 1.0 - 2.0 RATIO 12/13/2019 5:25 AM CDT [facility] EGFR NON-AFR. AMER. 64(L) >90 ML/MIN/1.7 3 M2 12/13/2019 5:25 AM CDT [facility] EGFR AFR. AMER. 74(L) >90 ML/MIN/1.7 3 M2 12/13/2019 5:25 AM CDT [facility] Comment: NOTE: eGFR is not calculated for patients <18 years of age. This is an estimated GFR (CKD EPI) and should not be used for calculating drug doses. 12/13/2019 4:42 AM CDT us Hubert Sullivan MD LABORATORY Final Result [facility] [address] [place] [address], [place] [phone] * (ABNORMAL) CBC W/DIFF AUTOMATED (12/13/2019 4:42 AM CDT) WBC 8.3 4.5 - 11.0 x10'3/uL 12/13/2019 5:02 AM CDT [facility] RBC 3.84(L) 4.20 - 5.40 x10'6/uL 12/13/2019 5:02 AM CDT [facility] HGB 11.8(L) 12.0 - 16.0 G/DL 12/13/2019 5:02 AM CDT [facility] HCT 34.7(L) 38.0 - 48.0 % 12/13/2019 5:02 AM CDT [facility] MCV 90.4 81.0 - 99.0 FL 12/13/2019 5:02 AM CDT [facility] MCH 30.7 27.0 - 31.0 PG 12/13/2019 5:02 AM CDT [facility] MCHC 34.0 32.0 - 36.0 G/DL 12/13/2019 5:02 AM CDT [facility] RDW 12.7 11.5 - 14.5 % 12/13/2019 5:02 AM CDT [facility] PLT 224 130 - 400 x10'3/uL 12/13/2019 5:02 AM T [facility] MPV 11.3 9.3 - 12.2 FL 12/13/2019 5:02 AM CDT [facility] DIFFERENTIAL TYPE AUTOMATED DIFFERENTIAL 12/13/2019 5:02 AM CDT [facility] NEUTROPHILS % 79.3 % 12/13/2019 5:02 AM CDT [facility] LYMPHOCYTES % 14.5 % 12/13/2019 5:02 AM T [facility] MONOCYTES % 5.3 % 12/13/2019 5:02 AM T [facility] EOSINOPHILS 0.2 % 12/13/2019 5:02 AM CDT [facility] BASOPHILS 0.2 % 12/13/2019 5:02 AM CDT [facility] IMMATURE GRANS % 0.5 % 12/13/19 20 5:02 AM CDT [facility] ABS. NEUTROPHILS TOTAL 6.59 1.80 - 7.70 x10'3/uL 12/13/2019 5:02 AM CDT [facility] ABS. LYMPHOCYTES 1.21 1.00 - 4.80 x10'3/uL 12/13/2019 5:02 AM CDT [facility] ABS. MONOCYTES 0.44 0.24 - 0.86 x10'3/uL 12/13/2019 5:02 AM CDT [facility] ABS. EOSINOPHILS 0.02(L) 0.04 - 0.36 x10'3/uL 12/13/2019 5:02 AM CDT [facility] ABS. BASOPHILS 0.02 0.01 - 0.08 x10'3/uL 12/13/2019 5:02 AM CDT [facility] ABS. IMMATURE GRANULOCYTES 0.04 0.00 - 0.49 x10'3/uL 12/13/2019 5:02 AM CDT [facility] 12/13/2019 4:42 AM CDT Hubert Sullivan MD LABORATORY Final Result [facility] [address] [place] [address], [place] [phone] documented in this encounter Visit Diagnoses Diagnosis Suspected COVID-19 virus infection- Primary Viral syndrome Unspecified viral infection, in conditions classified elsewhere and of unspecified site documented in this encounter Administered Medications Inactive Administered Medications - up to 3 most recent administrations Medication Order MAR Action Action Date Dose Rate Site iopamidol (ISOVUE-370) 76 % injection 100 mL 100 mL, Intravenous, IMG once as needed, Contrast, 1 dose, Starting on 12/13/19 at 0546, Until 12/13/19 at 0547 Given 12/13/2019 5:47 AM CDT 100 mLs R ight Arm ondansetron (ZOFRAN) injection 4 mg 4 mg, Intravenous, Once, 1 dose, On 12/13/19 at 0430, IV push over 2-5 minutes. Given 12/13/2019 4:51 AM CDT 4 mg sodium chloride 0.9% bolus infusion SOLN 1,000 mL 1,000 mL, Intravenous, Administer over 15 Minutes, Bolus (Once), 1 dose, On 12/13/19 at 0430 New Bag 12/13/2019 4:51 AM CDT 1,000 mLs documented in this encounter Active and Recently Administered Medications Times are shown in CDT. Scheduled Medication Order 12/11/2019 12/12/2019 12/13/2019 ondansetron (ZOFRAN) injection 4 mg (COMPLETED) 4 mg, Intravenous, Once, 1 dose, On 12/13/19 at 0430, IV push over 2-5 minutes. 0451 (Given - Provid er: Alicia Mcmahan, DEANDRE) sodium chloride 0.9% bolus infusion SOLN 1,000 mL (COMPLETED) 1,000 mL, Intravenous, Administer over 15 Minutes, Bolus (Once), 1 dose, On 12/13/19 at 0430 0451 (New Bag - Prov ider: Alicia Mcmahan, DEANDRE)0608 (Infusion Stop Time - Provider: Alicia Mcmahan RN) PRN Medication Order 12/11/2019 12/12/2019 12/13/2019 iopamidol (ISOVUE-370) 76 % injection 100 mL (COMPLETED) 100 mL, Intravenous, IMG once as needed, Contrast, 1 dose, Starting on 12/13/19 at 0546, Until 12/13/19 at 0547 0547 (Given - Provid er: Funmi Adams RTR) documented in this encounter Additional Health Concerns Infection Onset Date Last Indicated Resolved Time COVID-19 Rule Out 12/13/2019 12/13/2019 12/14/2019 3:06 PM CDT documented as of this encounter Care Teams Business Operations Specialist Relationship Specialty Start Date End Date Jarred Rod MD PCP - General FAMILY PRACTICE 6/1/16 8/12/21 documented as of this encounter
--- OUTSIDE RECORDS SUMMARY | 2024-03-02 22:30 | XMS_ITS | Encounter Summary ---
Author Organization [facility] Address [address] [place] [address]. [place], [place] [id number] [place] [address] Care Team Providers Care Tuber Machine Operator Helper Name Role Phone Jarred Rod MD Primary Care Provider Unav ailable Shira Shi PA-C Primary Care Provider [phone] Jarred Rod MD Primary Care Provider Unav ailable Colton SILVEIRA MD, Abiodun L Primary Care Provider Jarred Rod MD Primary Care Provider Unav ailable Encounter Details Date Type Department Care Team (Latest Contact Info) Description 07/20/2020 Scan HEALTH INFO SRVCS Scanned, Documents Social [...] COVID-19? No / Unsure 01/24/2021 11:10 AM DIETETIC TECHNICIAN REGISTERED documented as of this encounter Functional Status [...] st Contact Info) Description 03/14/2024 11:45 AM DIETETIC TECHNICIAN REGISTERED Office Visit [facility] [phone] Marvin Mckeon MD [address] [facility] [address] [place] [address] 03/20/2024 11:30 AM DIETETIC TECHNICIAN REGISTERED Office Visit [facility] Family Medicine - [place] [phone] Abiodun Segura II, MD [address] [place] [address] documented as of this encounter Visit Diagnoses Not on filedocumented in this encounter Care Teams Tuber Machine Operator Helper Relationship Specialty Start Date End Date Jarred Rod MD PCP - General FAMILY PRACTICE 07/21/15 09/30/20 Shira Shi PA-C [address] [place] [phone] PCP - General PHYSICIAN ELECTRICAL DRAFTER 10/01/20 11/17/20 Jarred Rod MD [address] [place] [address] PCP - General FAMILY PRACTICE 11/18/20 12/05/20 Abiodun Seguar II, MD [address] [place] [id number] PCP - General FAMILY PRACTICE 12/06/20 01/16/21 Jarred Rod MD [address] [place] [phone] PCP - General FAMILY PRACTICE 01/17/21 03/08/21 documented as of this encounter
--- OUTSIDE RECORDS SUMMARY | 2024-03-02 22:30 | XMS_ITS | Encounter Summary ---
Author Organization [facility] Address [address] [place] [address]. [place] [address] [place] [address] Care Team Providers Care Retail Department Supervisor Name Role Phone Jarred Rod MD Primary Care Provider Unav ailable Reason for Referral * Consultation (Urgent) - Closed Specialty Diagnoses / Procedures Referred By Lyla chaney Referred To Contact ENDOCRINOLOGY Diagnoses Type 2 diabetes mellitus with diabetic neuropathic arthropathy, with long-term current use of insulin ([facility]) Jarred Rod MD Sitaula, Sujata, MD [address] [address] Phone: tel: fax: Referral ID Status Reason Start Date Expiration Date Visits Re quested Visits Authorized [id number] Closed 10/06/2020 04/04/2021 6 6 Scheduling Instructions Patient is scheduled 10/13/20 at 3 pm Reason for Visit * Reason Onset Date Comments Referral Request 09/24/2020 Encounter Details Date Type Department Care Team ([facility] Contact Info) Description 09/24/2020 Telephone [facility] Family Medicine - [place] [phone] Jarred Rod MD Referral Request Social History Tobacco Use Types Packs/Day Years Used Date Smoking Tobacco: Never Smokeless Tobacco: Never Alcohol Use Standard Drinks/Week Comments No 0 (1 standard drink = 0.6 oz pur e alcohol) PHQ-2 Answer Date Recorded PHQ-2 Score - If the patient scores above 3, please move on to questions 3-9 0 09/17/2020 Comments No Sex and Gender Information Value [...] have Coronavirus / COVID-19? No / Unsure 09/24/2020 10:48 AM CDT documented as of this encounter [...] Progress Notes * Sydney Cobos MA - 09/24/2020 3:28 PM CDT Yes, no problem. Referral submitted * Abiodun Segura II, MD - 09/24/2020 1:06 PM CDT Can you assist in placing this referral? Thanks. * Faith Diaz MA - 09/24/2020 12:19 PM CDT Please advise documented in this encounter Plan of Treatment Upcoming Encounters Date Type Department Care Team (Late st Contact Info) Description 03/14/2024 11:45 AM MANAGER MENTAL HEALTH Office Visit [facility] [phone] Marvin Mckeon MD [facility] [address] [place] [address] 03/20/2024 11:30 AM MANAGER MENTAL HEALTH Office Visit [facility] Family Medicine [address] [phone] Abiodun Segura II, MD [address] [place] [address] Scheduled Referrals Name Type Priority Associated Diagnoses Orde r Schedule Ambulatory referral to Endocrinology ([facility]) Referral Routine Type 2 diabetes mellitus with diabetic neuropathic arthropathy, with long-term current use of insulin ([facility]) Ordered: 09/24/2020 documented as of this encounter Visit Diagnoses Diagnosis Type 2 diabetes mellitus with diabetic neuropathic arthropathy, with long-term current use of insulin ([facility]/HCC)- Primary documented in this encounter Additional Health Concerns Assessment Noted Time PHQ-9 Depression Total Score: 0 09/18/19 21 11:35 AM CDT documented as of this encounter Care Teams Retail Department Supervisor Relationship Specialty Start Date End Date Jarred Rod MD PCP - General FAMILY PRACTICE 07/21/15 09/30/20 documented as of this encounter
--- OUTSIDE RECORDS SUMMARY | 2024-03-02 22:30 | XMS_ITS | Encounter Summary ---
Author Organization [facility] Address [address] [place] [address]. [place], [place] [address] [place] [address] Care Team Providers Care Drag Seiner Name Role Phone Jarred Rod MD Primary Care Provider Unav ailable Shira Shi PA-C Primary Care Provider [phone]- [phone] Jarred Rod MD Primary Care Provider Unav ailable Colton SILVEIRA MD, Abiodun L Primary Care Provider Jarred Rod MD Primary Care Provider Unav ailable Reason for Visit * Reason Comments Procedure (SCAN) Encounter Details Date Type Department Care Team (Late st Contact Info) Description 03/30/2020 Scan [facility] HEALTH INFO SRVCS Scanned, Documents Procedure (SCAN) Social History Tobacco Use Types Packs/Day [...] COVID-19? No / Unsure 01/24/2021 11:10 AM MEDICAL MICROBIOLOGIST documented as of this encounter Functional Status [...] Contact Info) Description 03/14/2024 11:45 AM MEDICAL MICROBIOLOGIST Office Visit [facility] [phone] Marvin Mckeon MD [address] [facility] [address] [place], [place] [phone] 03/20/2024 11:30 AM MEDICAL MICROBIOLOGIST Office Visit [facility] Medical [facility] Family Medicine - [place] [address] [place] [phone] Abiodun Segura II, MD [address] [place] [address] documented as of this encounter Procedures Procedure Name Priority Date/Time Associated Diagnosis Comments PROCEDURE GENERIC (SCAN ORDER) 03/30/2020 documented in this encounter Results * PROCEDURE GENERIC (03/30/2020) 03/30/2020 Narrative 03/30/2020 Ordered by an unspecified provider. us Documents Scanned SCANNING Final Result documented in this encounter Visit Diagnoses Not on filedocumented in this encounter Care Teams Drag Seiner Relationship Specialty Start Date End Date Jarred Rod MD PCP - General FAMILY PRACTICE 07/21/15 09/30/20 Shira Shi PA-C [address] [place] [phone] PCP - General PHYSICIAN ANALYTICAL CHEMIST 10/01/20 11/17/20 Jarred Rod MD [address] [place] [phone] PCP - General FAMILY PRACTICE 11/18/20 12/05/20 Abiodun Segura II, MD [address] [place] [address] PCP - General FAMILY PRACTICE 12/06/20 01/16/21 Jarred Rod MD [address] [place] [phone] PCP - General FAMILY PRACTICE 01/17/21 03/08/21 documented as of this encounter
--- OUTSIDE RECORDS SUMMARY | 2024-03-02 22:30 | XMS_ITS | Encounter Summary ---
Author Organization [facility] Address [address] [place] [address]. [place] [address] [place] [address] Care Team Providers Care Transport Tech Name Role Phone Jarred Rod MD Primary Care Provider Unav ailable Reason for Referral * Imaging (Emergency) - Closed Specialty Diagnoses / Procedures Referred By Lyla chaney Referred To Contact RADIOLOGY Procedures CT ABD+PEL W IV CON ONLY Jael Bates PA [address] [place] [id number] Phone: tel: fax: Referral ID Status Reason Start Date Expiration Date Visits Re quested Visits Authorized [id number] Closed 11/18/2020 12/18/2021 1 1 Reason for Visit * Reason Comments Abdominal Pain Encounter Details Date Type Department Care Team (Late st Contact Info) Description 11/18/2020 1:11 PM CDT - 11/18/2020 5:02 PM CDT Emergency [facility] [place] [address] Americo Elder MD,PHD [address] [place] [id number] Abdominal Pain Discharge Disposition: Home or Self [...] have Coronavirus / COVID-19? No / Unsure 11/18/2020 12:16 PM CDT documented as of this encounter Last Filed Vital Signs Vital Sign Reading Time Taken Comments Blood Pressure 132/78 11/18/2020 5:00 PM CDT Pulse 103 11/18/2020 5:00 PM CDT Temperature 36.1 ??C (96.9 ??F) 11/18/2020 12:02 PM C DT Respiratory Rate 16 11/18/2020 5:00 PM CDT Oxygen Saturation 100% 11/18/2020 5:00 PM CDT Inhaled Oxygen Concentration - - Weight 88.9 kg (196 lb) 11/18/2020 12:02 PM CDT Height 167.6 cm (5' 6 ) 11/18/2020 12:02 PM CDT Body Mass Index 31.64 11/18/2020 12:02 PM CDT documented in this encounter Functional [...] Author Status Yes 08/12/2019 3:00 AM CDT Amolmichael Stephen Short Active documented as of this encounter Mental Status * Because of a physical, mental, or emotional condition, do you have serious difficulty concentrating, remembering, or making decisions? Answer Entry Date Author Status No 08/12/2019 3:00 AM CDT Shelby Martinez R N Active documented in this encounter Discharge Instructions * Discharge Instructions* Americo Elder MD,PHD - 11/18/2020 4:[address] of your abdomen is normal, but there are other findings that may need further evaluation by your primary care doctor on a non-emergent basis Maintain a clear liquid diet until you are improved. Take the nausea medication as needed. Return to the emergency room for any worsening of your pain * Attachments The following attachments cannot be sent through Care Everywhere. * Severe Abdominal Pain ([place]) * Incidental Findings ([place]) * Clear Liquid Diet ([place]) documented in this encounter Medications at Time of Discharge amLODIPine 10 MG tabletIndications:H ypertension, unspecified type [The details of the medication are not available because there are pending changes by a home health clinician.] 90 tablet 3 09/24/2020 3 HUMALOG MIX 75/25 (75-25) 100 UNIT/ML Suspension Take 55 units in AM and 50 units PM, this should be titrated depending on your blood sugar numbers. 1 vial 1 02/08/2017 2 hydrochlorothiazide 25 MG tablet Take 25 mg by mouth nightly. 1 lisinopril 40 MG tablet Take 40 mg by mouth nightly. 11/03/2016 2 Misc. Devices (PILL SPLITTER) MiscIndications:Olivia jonatan hypertension 1 Device by Does not apply route daily. 1 each 1 10/08/2020 2 nitroglycerin 0.[address] 0.4 mg under the tongue every 5 (five) minutes as needed. FOR CHEST PAIN DO NOT EXCEED A TOTAL OF 3 DOSES IN 15 MINUTES 07/07/2020 2 ondansetron 4 MG disintegrating tablet Take 1 tablet (4 mg total) by mouth every 8 (eight) hours as needed for Nausea. 20 tablet 11/18/2020 2 simvastatin 40 MG tablet Take 40 mg by mouth nightly at bedtime. 11/03/2016 2 spironolactone 25 MG tabletIndications:P rimary hypertension Take 0.5 tablets (12.5 mg total) by mouth daily. 45 tablet 3 10/08/2020 2 TRULICITY 1.5 MG/0.5ML Solution Pen-injector Inject 1.5 mg into the skin every 7 days. INJECT ON SUNDAY 0 10/07/2018 1 documented as of this encounter ED Notes * Mirta Ozuna RN - 11/18/2020 4:49 PM CDT Provider discussed today's findings with the patient. The patient has been given information regarding their treatment, follow up and concerning symptoms for which they should seek urgent or emergentattention. All questions answered. Pt wheeled out of ED with all personal belongings. IV d/c, vitals stable. * Americo Elder MD,PHD - 11/18/2020 2:44 PM CDT EMERGENCY DEPARTMENT ENCOUNTER Chief Complaint Chief Complaint Patient presents with ??? Abdominal Pain History of Present Illness Provider at Bedside Date/Time Event User Comments 11/18/20 1202 Provider at Bedside Assessing Patient JAEL BATES 50-year-old female presenting with a complaint of abdominal pain. The onset was sudden. The duration is since this morning. The course is intermittent. Is described as cramping. Is located on the left side of her abdomen. Patient had a colonoscopy by at 1045 today and attributes the pain to this procedure. Patient reports that she had clear stools during her bowel preparation and had similar pain during this preparation Medical History ALLERGIES: Allergies Allergen Reactions ??? Amoxicillin Rash ??? Penicillins Rash MEDICATIONS: Prior to Admission medications Medication Sig Start Date End Date Taking? Authorizing Provider ondansetron 4 MG disintegrating tablet Take 1 tablet (4 mg total) by mouth every 8 (eight) hours asneeded for Nausea. 11/18/20 Yes Americo Elder MD,PHD amLODIPine 10 MG tablet Take 1 tablet (10 mg total) by mouth daily. 09/24/20 Abiodun Segura II, MD HUMALOG MIX 75/25 [...] 25 mg by mouth nightly. Doc Abstract lisinopril 40 MG tablet Take 40 mg by mouth nightly. 11/03/16 Doc Abstract Misc. Devices (PILL SPLITTER) Misc 1 Device by Does not apply route daily. 10/08/20 Abiodun Segura II, MD nitroglycerin 0.[address] 0.4 mg under the tongue every 5 (five) minutes as needed. FOR CHEST PAIN DO NOT EXCEED A TOTAL OF 3 DOSES IN 15 MINUTES 07/07/20 Doc Abstract simvastatin 40 MG tablet Take 40 mg by mouth nightly at bedtime. 11/03/16 Doc Abstract spironolactone 25 MG tablet Take 0.5 tablets (12.5 mg total) by mouth daily. 10/08/20 Abiodun Segura II, MD TRULICITY 1.5 MG/0.5ML Solution Pen-injector Inject 1.5 [...] ??? Drug use: No Review of Systems Constitutional: Negative for chills and fever. Gastrointestinal: See HPI Genitourinary: Negative for flank pain, Negative for dysuria All other systems reviewed and are negative except as in HPI and as noted above Physical Exam Filed Vitals: 11/18/20 1202 BP: (!) 133/95 Pulse: 90 Resp: 18 Temp: 96.9 ??F (36.1 ??C) TempSrc: Temporal SpO2: 99% Weight: 88.9 kg (196 lb) Height: 5' 6 (1.676 m) CONSTITUTIONAL: Patient is awake, alert, in no acute distress, conversant HEAD AND FACE: Normocephalic, atraumatic EYES: Normal sclera, extraocular motions grossly normal NECK: Supple, no obvious asymmetry CARDIOVASCULAR: RRR, normal S1-S2, no clicks murmurs rubs or gallops are appreciated RESPIRATORY: No respiratory distress or tachypnea, clear to auscultation bilaterally without rales,rhonchi, wheezes ABDOMEN: Soft, mild left sided abdominal pain, nondistended, NEUROLOGIC: GCS 15, CN2-12 grossly intact, moves all extremities EXTREMITIES: Warm, no edema Diagnostic Studies / Procedures LABORATORY STUDIES: Results for orders placed or performed during the hospital encounter of 11/18/20 CBC W/DIFF AUTOMATED Result Value Ref Range WBC 13.4 (H) 4.5 - 11.0 x10'3/uL RBC 4.03 (L) 4.20 - 5.40 x10'6/uL HGB 12.5 12.0 - 16.0 G/DL HCT 36.7 (L) 38.0 - 48.0 % MCV 91.1 81.0 - 99.0 FL MCH 31.0 27.0 - 31.0 PG MCHC 34.1 32.0 - 36.0 G/DL RDW 12.5 11.5 - 14.5 % PLT 290 130 - 400 x10'3/uL MPV 11.1 9.3 - 12.2 FL DIFFERENTIAL TYPE AUTOMATED DIFFERENTIAL NEUTROPHILS 76.5 % LYMPHOCYTES 19.3 % MONOCYTES 3.4 % EOSINOPHILS 0.2 % BASOPHILS 0.4 % IMMATURE GRANS 0.2 % ABS. NEUTROPHILS TOTAL 10.21 (H) 1.80 - 7.70 x10'3/uL ABS. LYMPHOCYTES 2.58 1.00 - 4.80 x10'3/uL ABS. MONOCYTES 0.46 0.24 - 0.86 x10'3/uL ABS. EOSINOPHILS 0.03 (L) 0.04 - 0.36 x10'3/uL ABS. BASOPHILS 0.06 0.01 - 0.08 x10'3/uL ABS. IMMATURE GRANULOCYTES 0.03 0.00 - 0.49 x10'3/uL PROTIME/INR, VENOUS Result Value Ref Range Protime 12.9 10.2 - 12.9 SEC INR 1.1 PARTIAL THROMBOPLASTIN TIME,PTT Result Value Ref Range PTT 27.3 25.1 - 36.5 SEC COMPREHENSIVE METABOLIC PANEL Result Value Ref Range GLUCOSE 161 (H) 70 - 99 MG/DL BUN 19 (H) 7 - 18 MG/DL CREATININE S/P/B 1.05 (H) 0.55 - 1.02 MG/DL SODIUM 139 136 - 145 MMOL/L POTASSIUM 4.2 3.5 - 5.1 MMOL/L CHLORIDE S/P/B 105 100 - 108 MMOL/L CO2 27.8 21 - 32 MMOL/L CALCIUM 9.5 8.5 - 10.1 MG/DL BILIRUBIN TOTAL S/P/B 0.5 0.2 - 1.2 MG/DL TOTAL PROTEIN S/P/B 9.0 (H) 6.4 - 8.2 G/DL ALBUMIN S/P/B 3.5 3.4 - 5.0 G/DL AST 17 15 - 37 U/L ALT 26 14 - 55 U/L ALKALINE PHOSPHATASE S/P/B 129 50 - 136 U/L ANION GAP 6.2 5 - 15 MMOL/L BUN CREATININE RATIO 18.1 6 - 26 A/G RATIO 0.6 (L) 1.0 - 2.0 RATIO eGFR Non-Afr. Amer. 62 (L) >90 ML/MIN/1.73 M2 eGFR Afr. Amer. 72 (L) >90 ML/MIN/1.73 M2 LIPASE Result Value Ref Range LIPASE 95 73 - 393 UNITS/L URINALYSIS Result Value Ref Range Specimen Type URINE CLEAN CATCH COLOR (U) LIGHT YELLOW TRANSPARENCY TURBID Specific [place] (U) 1.012 1.001 - 1.030 U PH 5.5 5.0 - 9.0 LEUKOCYTE ESTERASE NEGATIVE NEGATIVE NITRITES NEGATIVE NEGATIVE PROTEIN (U) 20 <30 MG/DL URINE GLUCOSE NORMAL NORMAL MG/DL U KETONES NEGATIVE NEGATIVE MG/DL UROBILINOGEN NORMAL NORMAL MG/DL BILIRUBIN (U) NEGATIVE NEGATIVE MG/DL BLOOD NEGATIVE NEGATIVE CULTURE & SENSITIVITY INDICATED? CULTURE IS NOT INDICATED LACTIC ACID Result Value Ref Range LACTIC ACID 1.1 0.4 - 2.0 MMOL/L IMAGING STUDIES CT ABD+PEL W IV CON ONLY Final Result by User, [id number] (11/18 1608) Examination: CT ABD+PEL W CON Clinical history: Abdominal pain, recent colonoscopy Comparison: 09/11/2020, 01/02/2016, 12/25/2005 DATE/TIME: 11/18/2020 3:29 PM Technique: Multiplanar images of the abdomen and pelvis were obtained following the uneventful intravenous administration of 100 mL Isovue 370. A dose lowering technique was used for this procedure, which may include, but is not limited to, dose reduction technique, automated exposure control, the use of iterative reconstruction, and ALARA (As Low As Reasonably Achievable) / Image Gently techniques. Findings: There is a small ovoid density in the lateral aspect of the left breast measuring about centimeter, with a small peripheral calcification. This is nonspecific. Recommend correlation with mammographic history, if this is not a known benign finding would recommend correlation with diagnostic mammogram and ultrasound. Liver is negative. Benign splenic calcifications. Spleen otherwise negative. Gallbladder and bile ducts are negative. Pancreas is negative. Adrenal glands within normal limits. Stable abnormal appearance of the right kidney with cystic dilatation of the calyces and normal sized renal pelvis. This is unchanged since at least 2005 and could represent a congenital abnormality such as medullary sponge kidney, versus sequelae of old infection or chronic obstruction. Tiny nonobstructive left renal stone. Difficult to evaluate for other stones given excreted IV contrast in the collecting systems. Kidneys otherwise negative. Calcified pelvic phleboliths and ovarian vein phleboliths. Bladder decompressed and not well evaluated. Hysterectomy. No pelvic mass. Abdominal aorta is normal caliber. Circumaortic left renal vein. No free intraperitoneal air or fluid. No bowel obstruction or bowel wall thickening. Normal appendix. Small diverticulum arising from the cecum/ascending colon without evidence of diverticulitis. Ovaries within normal limits. Stomach and duodenum are unremarkable. No acute osseous abnormality or destructive bone lesion. No acute osseous abnormality. IMPRESSION: 1. No acute findings. 2. Incidental small left breast nodule, indeterminate as discussed above. 3. Stable chronic abnormal appearance of the right kidney. 4. Tiny nonobstructive left renal stone. 5. Other chronic or nonurgent findings as described above. Referred By: Interpreted By: Arley Gastelum MD, 11/18/2020 4:00 PM ED Course / Medical Decision Making Patient presenting with a chief complaint of abdominal pain after colonoscopy In the differential diagnosis I considered anemia or other hematologic abnormality, electrolyte derangement, metabolic derangement, liver dysfunction, renal dysfunction, biliary tract pathology including cholecystitis cholangitis choledocholithiasis and symptomatic cholelithiasis, pancreatitis, hollow viscus obstruction, hollow viscus rupture, intra-abdominal infections including appendicitis anddiverticulitis, urinary tract infection, nephrolithiasis I reviewed the patient's labs, which are significant for mild hyperglycemia I reviewed the radiologist's interpretation of the patient's radiologic diagnostics which is significant for an incidentally seen breast nodule of indeterminate etiology. The patient is informed thatshe will require further evaluation of this finding as an outpatient. No further intra-abdominal pa thology is identified. I reviewed the patient's EKG, as above I reviewed old medical records, obtained from care everywhere, as well as internal past medical records I interpreted the patient's pulse oximeter at rest, which is 100% on room air, which is normal and determined that this patient is not hypoxic I interpreted the patient's cardiac specialist as showing a sinus rhythm and hemodynamic stability The patient was thus deemed stable for discharge from emergency department. Her symptoms are treated with ondansetron and Maalox. A scribe was present to assist with the documentation of the encounter. Scribe documentation was reviewed by me and was edited by me to reflect my assessment of the HPI, review of systems, past medical history, past surgical history, past family history, social history, medication list, allergies, and examination. These elements of documented above were personally obtained by me via direct interaction of the patient when possible, with the exception of circumstances or patient factors limiting my ability to do so. In instances where nursing or other providers documented this information priorto my encounter, I personally confirmed the accuracy of this information to the best of my ability given the circumstances. Medications sodium chloride 0.9% infusion ( Intravenous New Bag 11/18/20 1404) ondansetron (ZOFRAN) injection 4 mg (4 mg Intravenous Given 11/18/20 1404) famotidine (PEPCID) injection 20 mg (20 mg Intravenous Given 11/18/20 1405) iopamidol (ISOVUE-370) 76 % injection 100 mL (100 mLs Intravenous Given 11/18/20 1550) moqblpfna-[id number] (MYLANTA MAXIMUM STRENGTH) 6066-9906-508 mg/30mL suspension (30 mLs Oral Given 11/18/20 1631) Clinical Impression Abdominal pain (Primary) Breast nodule Current Discharge Medication List START taking these medications Details ondansetron 4 MG disintegrating tablet Take 1 tablet (4 mg total) by mouth every 8 (eight) hours asneeded for Nausea. Qty: 20 tablet, Refills: 0 Class: Eprescribe Pharmacy: [facility] [address] [place] [address] (Ph #: [phone]) Disposition: Discharge home Patient provided with printed and verbal discharge care instructions and was instructed to return to the emergency department immediately with worsening symptoms or new worrisome symptoms. Patient was instructed to follow-up with primary care physician within 1 week for further evaluation and treatment. Diagnoses & treatment discussed with patient Patient expressed understanding and agreed. Americo Elder MD,PHD 11/19/20 [id number] * Adenike Vaughan RN - 11/18/2020 1:11 PM CDT Bed: 22 Expected date: Expected time: Means of arrival: Comments: * Narda Alexander RN - 11/18/2020 12:05 PM CDT Pt arrives to ED via EMS from outpatient colonoscopy that was done today at 1045 with llq abd pain that began upon wakening from procedure. Pt reports pain 09/28. Sent here from gi doc for eval. Biopsy was taken. 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 Physical exam: A brief physical exam was completed to facilitate/expedite patient care. nonDistress lungs clear to auscultation bilaterally Plan: Necessary labs/imaging/medications ordered to initiate pt care. CYNTHIA Montgomery 11/18/20 1205 Cosigned by Sanchez Vasquez MD at 11/18/2020 12:22 PM CDT documented in this encounter Plan of Treatment Upcoming Encounters Date Type Department Care Team (Late st Contact Info) Description 03/14/2024 11:45 AM ENGINEERING ANALYST Office Visit [facility] [phone] Marvin Mckeon MD [address] [place] [address] 03/20/2024 11:30 AM ENGINEERING ANALYST Office Visit [facility] - [place] [address] [place] [phone] Abiodun Segura II, MD [address] [place], [place] [id number] documented as of this encounter Procedures Procedure Name Priority Date/Time Associated Diagnosis Comments CT ABD+PEL W CON STAT 11/18/2020 3:49 PM CDT HC URINALYSIS AUTO W/O MICRO STAT 11/18/2020 2:16 PM CDT PARTIAL THROMBOPLASTIN TIME,PTT STAT 11/18/2020 1:50 PM CDT PROTHROMBIN TIME, VENOUS STAT 11/18/2020 1:50 PM CDT COMPREHENSIVE METABOLIC PANEL STAT 11/18/2020 1:50 PM CDT LACTIC ACID TIMED 11/18/2020 1:50 PM CDT CBC W/DIFF AUTOMATED STAT 11/18/2020 1:50 PM CDT LIPASE STAT 11/18/2020 1:50 PM CDT documented in this encounter Results * CT ABD+PEL W IV CON ONLY (11/18/2020 3:49 PM CDT) Anatomical Region Laterality Modality Abdomen Computed Tomogra phy 11/18/2020 4:00 PM CDT Impressions 11/18/2020 4:08 PM CDT IMPRESSION: 1. ??No acute findings. 2. ??Incidental small left breast nodule, indeterminate as discussed above. 3. ??Stable chronic abnormal appearance of the right kidney. 4. ??Tiny nonobstructive left renal stone. 5. ??Other chronic or nonurgent findings as described above. Referred By: ?? Interpreted By: Arley Gastelum MD, 11/18/2020 4:00 PM Narrative 11/18/2020 4:08 PM CDT Examination: CT ABD+PEL W CON Clinical history: Abdominal pain, recent colonoscopy Comparison: 09/11/2020, 01/02/2016, 12/25/2005 DATE/TIME: 11/18/2020 3:29 PM Technique: Multiplanar images of the abdomen and pelvis were obtained following the uneventful intravenous administration of 100 mL Isovue 370. A dose lowering technique was used for this procedure, which may include, but is not limited to, dose reduction technique, automated exposure control, the use of iterative reconstruction, and ALARA (As Low As Reasonably Achievable) / Image Gently techniques. Findings: There is a small ovoid density in the lateral aspect of the left breast measuring about centimeter, with a small peripheral calcification. ??This is nonspecific. ??Recommend correlation with mammographic history, if this is not a known benign finding would recommend correlation with diagnostic mammogram and ultrasound. ??Liver is negative. ??Benign splenic calcifications. ??Spleen otherwise negative. Gallbladder and bile ducts are negative. ??Pancreas is negative. ??Adrenal glands within normal limits. Stable abnormal appearance of the right kidney with cystic dilatation of the calyces and normal sized renal pelvis. ??This is unchanged since at least 2005 and could represent a congenital abnormality such as medullary sponge kidney, versus sequelae of old infection or chronic obstruction. ??Tiny nonobstructive left renal stone. ??Difficult to evaluate for other stones given excreted IV contrast in the collecting systems. ??Kidneys otherwise negative. ??Calcified pelvic phleboliths and ovarian vein phleboliths. ??Bladder decompressed and not well evaluated. ??Hysterectomy. ??No pelvic mass. Abdominal aorta is normal caliber. ??Circumaortic left renal vein. ??No free intraperitoneal air or fluid. ??No bowel obstruction or bowel wall thickening. ??Normal appendix. ??Small diverticulum arising from the cecum/ascending colon without evidence of diverticulitis. ??Ovaries within normal limits. ??Stomach and duodenum are unremarkable. ??No acute osseous abnormality or destructive bone lesion. ??No acute osseous abnormality. Procedure Note Arley Gastelum MD - 11/18/2020 Examination: CT ABD+PEL W CON Clinical history: Abdominal pain, recent colonoscopy Comparison: 09/11/2020, 01/02/2016, 12/25/2005 DATE/TIME: 11/18/2020 3:29 PM Technique: Multiplanar images of the abdomen and pelvis were obtainedfollowing the uneventful intravenous administration of 100 mL Isovue 370.A dose lowering technique was used for this procedure, which may include,but is not limited to, dose reduction technique, automated exposurecontrol, the use of iterative reconstruction, and ALARA (As Low AsReasonably Achievable) / Image Gently techniques. Findings: There is a small ovoid density in the lateral aspect of the leftbreast measuring about centimeter, with a small peripheral calcification.This is nonspecific. Recommend correlation with mammographic history, ifthis is not a known benign finding would recommend correlation withdiagnostic mammogram and ultrasound. Liver is negative. Benign spleniccalcifications. Spleen otherwise negative. Gallbladder and bile ducts are negative. Pancreas is negative. Adrenalglands within normal limits. Stable abnormal appearance of the right kidney with cystic dilatation ofthe calyces and normal sized renal pelvis. This is unchanged since atleast 2005 and could represent a congenital abnormality such as medullarysponge kidney, versus sequelae of old infection or chronic obstruction.Tiny nonobstructive left renal stone. Difficult to evaluate for otherstones given excreted IV contrast in the collecting systems. Kidneysotherwise negative. Calcified pelvic phleboliths and ovarian veinphleboliths. Bladder decompressed and not well evaluated. Hysterectomy.No pelvic mass. Abdominal aorta is normal caliber. Circumaortic left renal vein. No freeintraperitoneal air or fluid. No bowel obstruction or bowel wallthickening. Normal appendix. Small diverticulum arising from thececum/ascending colon without evidence of diverticulitis. Ovaries withinnormal limits. Stomach and duodenum are unremarkable. No acute osseousabnormality or destructive bone lesion. No acute osseous abnormality. IMPRESSION: 1. No acute findings. 2. Incidental small left breast nodule, indeterminate as discussedabove. 3. Stable chronic abnormal appearance of the right kidney. 4. Tiny nonobstructive left renal stone. 5. Other chronic or nonurgent findings as described above. Referred By: Interpreted By: Arley Gastelum MD, 11/18/2020 4:00 PM [facility] [place] CT Final Result * URINALYSIS (11/18/2020 2:16 PM CDT) SPECIMEN TYPE URINE CLEAN CATCH 11/18/2020 2:21 PM CDT [facility] COLOR (U) LIGHT YELLOW 11/18/2020 2:49 PM CDT [facility] TRANSPARENCY TURBID 11/18/2020 2:49 PM CDT [facility] SPECIFIC GRAVITY (U) 1.012 1.001 - 1.030 11/18/2020 2:49 PM CDT [facility] U PH 5.5 5.0 - 9.0 11/18/2020 2:49 PM CDT [facility] LEUKOCYTES (U) NEGATIVE NEGATIVE 11/18/2020 2:49 PM CDT [facility] NITRITES NEGATIVE NEGATIVE 11/18/2020 2:49 PM CDT [facility] PROTEIN (U) 20 <30 MG/DL 11/18/2020 2:49 PM CDT [facility] URINE GLUCOSE NORMAL NORMAL MG/DL 11/18/2020 2:49 PM CDT [facility] KETONES MG/DL (U) NEGATIVE NEGATIVE MG/DL 11/18/2020 2:49 PM CDT [facility] UROBILINOGEN NORMAL NORMAL MG/DL 11/18/2020 2:49 PM CDT [facility] BILIRUBIN (U) NEGATIVE NEGATIVE MG/DL 11/18/2020 2:49 PM CDT [facility] BLOOD (U) NEGATIVE NEGATIVE 11/18/2020 2:49 PM CDT [facility] CULTURE & SENSITIVITY INDICATED? CULTURE IS NOT INDICATED 11/18/2020 2:49 PM CDT [facility] URINE SPECIMEN OBTAINED BY CLEAN CATCH PROCEDURE / Unknown 11/18/2020 2:16 PM CDT Jael MARIE URINE ORDERABLES Final Resul t [facility] [address] [place] [address], [place] [phone] * LACTIC ACID (11/18/2020 1:50 PM CDT) LACTIC ACID VENOUS 1.1 0.4 - 2.0 MMOL/L 11/18/2020 2:42 PM CDT [facility] 11/18/2020 1:50 PM CDT Jael MARIE LABORATORY Final Result Performing Organization Address City/[facility]/ZIP Co de Phone Number [facility] [address] [place] [address], [place] [phone] * LIPASE (11/18/2020 1:50 PM CDT) LIPASE 95 73 - 393 UNITS/L 11/18/2020 2:39 PM CDT [facility] 11/18/2020 1:50 PM CDT Jael MARIE LABORATORY Final Result [facility] [address] [place], [place] [address], [place] [address], [place] [phone] * (ABNORMAL) COMPREHENSIVE METABOLIC PANEL (11/18/2020 1:50 PM CDT) [facility] GLUCOSE 161(H) 70 - 99 MG/DL 11/18/2020 2:39 PM CDT [facility] BUN 19(H) 7 - 18 MG/DL 11/18/2020 2:39 PM CDT [facility] CREATININE S/P/B 1.05(H) 0.55 - 1.02 MG/DL 11/18/2020 2:39 PM CDT [facility] SODIUM S/P/B 139 136 - 145 MMOL/L 11/18/2020 2:39 PM CDT [facility] POTASSIUM S/P/B 4.2 3.5 - 5.1 MMOL/L 11/18/2020 2:39 PM CDT [facility] CHLORIDE S/P/B 105 100 - 108 MMOL/L 11/18/2020 2:39 PM CDT [facility] CO2 27.8 21 - 32 MMOL/L 11/18/2020 2:39 PM CDT [facility] CALCIUM S/P/B 9.5 8.5 - 10.1 MG/DL 11/18/2020 2:39 PM CDT [facility] BILIRUBIN TOTAL S/P/B 0.5 0.2 - 1.2 MG/DL 11/18/2020 2:39 PM CDT [facility] Comment: THIS ASSAY IS NOT RECOMMENDED FOR PATIENTS UNDERGOING TREATMENT WITH ELTROMBOPAG DUE TO THE POTENTIAL FOR FALSELY ELEVATED RESULTS. TOTAL PROTEIN S/P/B 9.0(H) 6.4 - 8.2 G/DL 11/18/2020 2:39 PM CDT [facility] ALBUMIN S/P/B 3.5 3.4 - 5.0 G/DL 11/18/2020 2:39 PM CDT [facility] AST 17 15 - 37 U/L 11/18/2020 2:39 PM CDT [facility] ALT 26 14 - 55 U/L 11/18/2020 2:39 PM CDT [facility] ALKALINE PHOSPHATASE S/P/B 129 50 - 136 U/L 11/18/2020 2:39 PM CDT [facility] ANION GAP 6.2 5 - 15 MMOL/L 11/18/2020 2:39 PM CDT [facility] BUN CREATININE RATIO 18.1 6 - 26 11/18/2020 2:39 PM CDT [facility] A/G RATIO 0.6(L) 1.0 - 2.0 RATIO 11/18/2020 2:39 PM CDT [facility] EGFR NON-AFR. AMER. 62(L) >90 ML/MIN/1.7 3 M2 11/18/2020 2:39 PM CDT [facility] EGFR AFR. AMER. 72(L) >90 ML/MIN/1.7 3 M2 11/18/2020 2:39 PM CDT [facility] Comment: NOTE: eGFR is not calculated for patients <18 years of age. This is an estimated GFR (CKD EPI) and should not be used for calculating drug doses. 11/18/2020 1:50 PM CDT us Jael MARIE LABORATORY Final Result [facility] [address] [place] [address], [place] [phone] * PARTIAL THROMBOPLASTIN TIME,PTT (11/18/2020 1:50 PM CDT) PTT 27.3 25.1 - 36.5 SEC 11/18/2020 2:22 PM CDT [facility] 11/18/2020 1:50 PM CDT Jael MARIE LABORATORY Final Result Performing Organization Address [facility] Co de Phone Number [facility] [address] [place] [address], * PROTIME/INR, VENOUS (11/18/2020 1:50 PM CDT) PROTIME 12.9 10.2 - 12.9 SEC 11/18/2020 2:22 PM CDT [facility] INR 1.1 11/18/2020 2:22 PM CDT [facility] Comment: Recommended INR Therapeutic Goals: ??2.0-3.0 Routine Therapy ??2.5-3.5 Mechanical Prosthetic Valves (High Risk) 11/18/2020 1:50 PM CDT Jael MARIE LABORATORY Final Result Performing Organization Address [facility] Co de Phone Number [facility] [address] [place] [address], * (ABNORMAL) CBC W/DIFF AUTOMATED (11/18/2020 1:50 PM CDT) WBC 13.4(H) 4.5 - 11.0 x10'3/uL 11/18/2020 2:16 PM CDT [facility] RBC 4.03(L) 4.20 - 5.40 x10'6/uL 11/18/2020 2:16 PM CDT [facility] HGB 12.5 12.0 - 16.0 G/DL 11/18/2020 2:16 PM CDT [facility] HCT 36.7(L) 38.0 - 48.0 % 11/18/2020 2:16 PM CDT [facility] MCV 91.1 81.0 - 99.0 FL 11/18/2020 2:16 PM CDT [facility] MCH 31.0 27.0 - 31.0 PG 11/18/2020 2:16 PM CDT [facility] MCHC 34.1 32.0 - 36.0 G/DL 11/18/2020 2:16 PM CDT [facility] RDW 12.5 11.5 - 14.5 % 11/18/2020 2:16 PM CDT [facility] PLT 290 130 - 400 x10'3/uL 11/18/2020 2:16 PM CDT [facility] MPV 11.1 9.3 - 12.2 FL 11/18/2020 2:16 PM CDT [facility] DIFFERENTIAL TYPE AUTOMATED DIFFERENTIAL 11/18/2020 2:16 PM CDT [facility] NEUTROPHILS % 76.5 % 11/18/2020 2:16 PM CDT [facility] LYMPHOCYTES % 19.3 % 11/18/2020 2:16 PM CDT [facility] MONOCYTES % 3.4 % 11/18/2020 2:16 PM CDT [facility] EOSINOPHILS 0.2 % 11/18/2020 2:16 PM CDT [facility] BASOPHILS 0.4 % 11/18/2020 2:16 PM CDT [facility] IMMATURE GRANS % 0.2 % 11/19/19 2:16 PM CDT [facility] ABS. NEUTROPHILS TOTAL 10.21(H) 1.80 - 7.70 x10'3/uL 11/18/2020 2:16 PM CDT [facility] ABS. LYMPHOCYTES 2.58 1.00 - 4.80 x10'3/uL 11/18/2020 2:16 PM CDT [facility] ABS. MONOCYTES 0.46 0.24 - 0.86 x10'3/uL 11/18/2020 2:16 PM CDT [facility] ABS. EOSINOPHILS 0.03(L) 0.04 - 0.36 x10'3/uL 11/18/2020 2:16 PM CDT [facility] ABS. BASOPHILS 0.06 0.01 - 0.08 x10'3/uL 11/18/2020 2:16 PM CDT [facility] ABS. IMMATURE GRANULOCYTES 0.03 0.00 - 0.49 x10'3/uL 11/18/2020 2:16 PM CDT [facility] 11/18/2020 1:50 PM CDT Jael MARIE LABORATORY Final Result [facility] [address] [place] [address], [place] [phone] documented in this encounter Visit Diagnoses Diagnosis Abdominal pain- Primary Abdominal pain, unspecified site Breast nodule Other (abnormal) findings on radiological examination of breast documented in this encounter Administered Medications Inactive Administered Medications - up to 3 most recent administrations Medication Order MAR Action Action Date Dose Rate Site famotidine (PEPCID) injection 20 mg 20 mg, Intravenous, Once, 1 dose, On Viky 11/18/20 at 1215, IV Push over 2 minutes Given 11/18/2020 2:05 PM CDT 20 mg iopamidol (ISOVUE-370) 76 % injection 100 mL 100 mL, Intravenous, IMG once as needed, Contrast, 1 dose, Starting on Viky 11/18/20 at 1550, Until Viky 11/18/20 at 1550 Given 11/18/2020 3:50 PM CDT 100 mLs rxqlxsbsz-wifygnnt-stucmdwlyp e (MYLANTA MAXIMUM STRENGTH) 9438-1916-424 mg/30mL suspension 30 mL, Oral, Once, 1 dose, On Viky 11/18/20 at 1630, Shake Well Given 11/18/2020 4:31 PM CDT 30 mLs ondansetron (ZOFRAN) injection 4 mg 4 mg, Intravenous, Once, 1 dose, On Viky 11/18/20 at 1215, IV push over 2-5 minutes. Given 11/18/2020 2:04 PM CDT 4 mg sodium chloride 0.9% infusion at 75 mL/hr, Intravenous, Continuous, Starting on Viky 11/18/20 at 1215, Until Viky 11/18/20 at 1902 New Bag 11/18/2020 2:04 PM CDT 75 mL/hr documented in this encounter Active and Recently Administered Medications Times are shown in CDT. Scheduled Medication Order 11/16/2020 11/17/2020 11/18/2020 famotidine (PEPCID) injection 20 mg (COMPLETED) 20 mg, Intravenous, Once, 1 dose, On Viky 11/18/20 at 1215, IV Push over 2 minutes 1405 (Given - Provid er: Yareli Baron RN) cxmommmgm-kboksrpf-cflwccyqwlk (MYLANTA MAXIMUM STRENGTH) [id number] mg/30mL suspension (COMPLETED) 30 mL, Oral, Once, 1 dose, On Viky 11/18/20 at 1630, Shake Well 1631 (Given - Provid er: Mirta Ozuna RN) ondansetron (ZOFRAN) injection 4 mg (COMPLETED) 4 mg, Intravenous, Once, 1 dose, On Viky 11/18/20 at 1215, IV push over 2-5 minutes. 1404 (Given - Provid er: Yareli Baron RN) Continuous Medication Order 11/16/2020 11/17/2020 11/18/2020 sodium chloride 0.9% infusion at 75 mL/hr, Intravenous, Continuous, Starting on Viky 11/18/20 at 1215, Until Viky 11/18/20 at 1902 1404 (New Bag - Prov ider: Yareli Baron, RN)1648 (Infusion Stop Time - Provider: Mirta Ozuna, DEANDRE) PRN Medication Order 11/16/2020 11/17/2020 11/18/2020 iopamidol (ISOVUE-370) 76 % injection 100 mL (COMPLETED) 100 mL, Intravenous, IMG once as needed, Contrast, 1 dose, Starting on Viky 11/18/20 at 1550, Until Viky 11/18/20 at 1550 1550 (Given - Provid er: Macey Rosales, RTR) documented in this encounter Additional Health Concerns Assessment Noted Time PHQ-9 Depression Total Score: 0 10/09/19 10:02 AM CDT documented as of this encounter Care Teams Transport Tech Relationship Specialty Start Date End Date Jarred oRd MD PCP - General FAMILY PRACTICE 11/18/20 12/05/20 documented as of this encounter
--- OUTSIDE RECORDS SUMMARY | 2024-03-02 22:30 | XMS_ITS | Encounter Summary ---
Author Organization [facility] Address [address] [place] [address]. [place] [address] [place] [address] Care Team Providers Care Claim Professional Name Role Phone Jarred Rod MD Primary Care Provider Unav loida Segura II, MD, James L Primary Care Provider Jarred Rod MD Primary Care Provider Unav loida Segura II, MD, James L Primary Care Provider Reason for Visit * Reason Comments Colonoscopy Report (SCAN) Pathology (SCAN) EGD (SCAN) Encounter Details Date Type Department Care Team (Late st Contact Info) Description 11/18/2020 Scan HEALTH INFO SRVCS Scanned, Doc Med Group Colonoscopy Report (SCAN); Pathology (SCAN); EGD (SCAN) Social History Tobacco [...] Coronavirus/COVID-19? No / Unsure 04/04/2022 11:24 AM INTERMEDIATE FRAME TENDER documented as of this encounter Functional Status [...] decisions? No 12/17/2021 2:10 AM CDT Amanda Qureshi, R N Active * Because of a physical, mental, or emotional condition, do you have serious difficulty concentrating, remembering, or making decisions? Answer Entry Date Author Status No 08/12/2019 3:00 AM CDT Shelby Martinez R N Active documented in this encounter Plan of Treatment Upcoming Encounters Date Type Department Care Team (Late st Contact Info) Description 03/14/2024 11:45 AM INTERMEDIATE FRAME TENDER Office Visit [facility]-[address] [phone] Marvin Mckeon MD Three [facility] [address] [place] [address] 03/20/2024 11:30 AM INTERMEDIATE FRAME TENDER Office Visit [facility] Family Medicine - [place] [address] [place] [phone] Abiodun Segura II, MD [address] [place], [place] [phone] documented as of this encounter Procedures Procedure Name Priority Date/Time Associated Diagnosis Comments EGD GENERIC (SCAN ORDER) 11/18/2020 PATHOLOGY GENERIC (SCAN ORDER) 11/18/2020 COLONOSCOPY GENERIC (SCAN ORDER) 11/18/2020 documented in this encounter Results * EGD GENERIC (11/18/2020) 11/18/2020 us [facility] Scanned SCANNING Final Resu lt * PATHOLOGY GENERIC (11/18/2020) 11/18/2020 us [facility] Scanned SCANNING Final Resu lt * COLONOSCOPY GENERIC (11/18/2020) 11/18/2020 us [facility] Scanned SCANNING Final Resu lt documented in this encounter Visit Diagnoses Not on filedocumented in this encounter Additional Health Concerns Infection Onset Date Last Indicated Resolved Time COVID-19 Rule Out 12/22/2021 12/22/2021 12/22/2021 6:31 AM CDT COVID-19 Rule Out 01/08/2022 01/08/2022 01/08/2022 6:50 PM INTERMEDIATE FRAME TENDER Assessment Noted Time PHQ-9 Depression Total Score: 0 10/09/19 10:02 AM CDT documented as of this encounter Care Teams Claim Professional Relationship Specialty Start Date End Date Jarred Rod MD PCP - General FAMILY PRACTICE 11/18/20 12/05/20 Abiodun Segura II, MD [address] [place] [address] PCP - General FAMILY PRACTICE 12/06/20 01/16/21 Jarred Rod MD PCP - General acute hospital PRACTICE 01/17/21 03/08/21 Abiodun Segura II, MD [address] [place] [address] PCP - General FAMILY PRACTICE 03/09/21 documented as of this encounter
--- OUTSIDE RECORDS SUMMARY | 2024-03-02 22:30 | XMS_ITS | Encounter Summary ---
Author Organization [facility] Address [address] [place] [address]. [place], [place] [address] [place] [address] Care Team Providers Care Triage Register Nurse Name Role Phone Shira Shi PA-C Primary Care Provider [phone]- [phone] Reason for Visit * Reason Comments Lab (SCAN) Encounter Details Date Type Department Care Team (Latest Contact Info) Description 10/11/2020 Scan HEALTH INFO SRVCS Scanned, Documents Lab (SCAN) [...] CDT TottyJacintaa A, R N Active * Do you [...] st Contact Info) Description 03/14/2024 11:45 AM BAR WAITER/WAITRESS Office Visit [facility] [phone] Marvin Mckeon MD Three [facility] [address] [place], [place] [phone] 03/20/2024 11:30 AM BAR WAITER/WAITRESS Office Visit [facility] Family Medicine - [place] [address] [place] [phone] Abiodun Segura II, MD [address] [place] [address] documented as of this encounter Procedures Procedure Name Priority Date/Time Associated Diagnosis Comments OUTSIDE LAB (SCAN ORDER) 10/11/2020 OUTSIDE LAB (SCAN ORDER) 10/11/2020 documented in this encounter Results * OUTSIDE LAB (SCAN) (10/11/2020) 10/11/2020 Narrative 10/11/2020 Ordered by an unspecified provider. us Documents Scanned SCANNING Final Result * OUTSIDE LAB (SCAN) (10/11/2020) 10/11/2020 Narrative 10/11/2020 Ordered by an unspecified provider. us Documents Scanned SCANNING Final Result documented in this encounter Visit Diagnoses Not on filedocumented in this encounter Additional Health Concerns Assessment Noted Time PHQ-9 Depression Total Score: 0 10/09/19 21 10:02 AM CDT documented as of this encounter Care Teams Triage Register Nurse Relationship Specialty Start Date End Date Shira Shi PA-C [address] [place] [address]. [place] [address] PCP - General PHYSICIAN SUPERVISOR [employer] 10/01/20 11/17/20 documented as of this encounter
--- OUTSIDE RECORDS SUMMARY | 2024-03-02 22:30 | XMS_ITS | Encounter Summary ---
Author Organization [facility] Address [address] [place] [address]. [place], [place] [phone] [place] [address] Care Team Providers Care Food And Beverage Order Clerk Name Role Phone Jarred Rod MD Primary Care Provider Unav ailable Shira Shi PA-C Primary Care Provider [phone]- [phone] Jarred Rod MD Primary Care Provider Unav ailable Colton SILVEIRA MD, Abiodun L Primary Care Provider Jarred Rod MD Primary Care Provider Unav ailable Reason for Visit * Reason Comments Image (SCAN) CT (SCAN) Encounter Details Date Type Department Care Team (Late st Contact Info) Description 12/13/2019 Scan HEALTH INFO SRVCS Scanned, Documents Image (SCAN); CT (SCAN) Social History Tobacco Use Types [...] COVID-19? No / Unsure 01/24/2021 11:10 AM MANAGER DAIRY documented as of this encounter Functional Status [...] Contact Info) Description 03/14/2024 11:45 AM MANAGER DAIRY Office Visit [facility] [phone] Marvin Mckeon MD Three [facility] [address] [place] [address] 03/20/2024 11:30 AM MANAGER DAIRY Office Visit [facility] Family Medicine - [place] 100 [place] [phone] Abiodun Segura II, MD [address] [place] [address] documented as of this encounter Procedures Procedure Name Priority Date/Time Associated Diagnosis Comments CT GENERIC 12/13/2019 IMAGE GENERIC 12/13/2019 documented in this encounter Results * CT GENERIC (12/13/2019) Anatomical Region Laterality Modality Other 12/13/2019 Narrative 12/13/2019 Ordered by an unspecified provider. us Documents Scanned SCANNING Final Result * IMAGE GENERIC (12/13/2019) Anatomical Region Laterality Modality Other 12/13/2019 Narrative 12/13/2019 Ordered by an unspecified provider. us Documents Scanned SCANNING Final Result documented in this encounter Visit Diagnoses Not on filedocumented in this encounter Additional Health Concerns Infection Onset Date Last Indicated Resolved Time COVID-19 Rule Out 12/13/2019 12/13/2019 12/14/2019 3:06 PM CDT COVID-19 Confirmed 12/13/2019 12/13/2019 0 12:34 AM MANAGER DAIRY documented as of this encounter Care Teams Food And Beverage Order Clerk Relationship Specialty Start Date End Date Jarred Rod MD PCP - General FAMILY PRACTICE 07/21/15 09/30/20 Shira Shi PA-C [address] [place] [address] PCP - General PHYSICIAN CEO [place] 10/01/20 11/17/20 Jarred Rod MD [address] [place] [address] PCP - General FAMILY PRACTICE 11/18/20 12/05/20 Abiodun Segura II, MD [address] [place] [address] PCP - General FAMILY PRACTICE 12/06/20 01/16/21 Jarred Rod MD [address] [place] [address] HATTIE MCKENNA [address] PCP - General FAMILY PRACTICE 01/17/21 03/08/21 documented as of this encounter
--- OUTSIDE RECORDS SUMMARY | 2024-03-02 22:30 | XMS_ITS | Encounter Summary ---
Author Organization [facility] Address [address] [place] [address]. [place] [address] [place] [address] Care Team Providers Care Oceanographer Assistant Name Role Phone Jarred Rod MD Primary Care Provider Unav ailable Encounter Details Date Type Department Care Team (Late st Contact Info) Description 09/29/2020 1:02 PM CDT - 09/29/2020 11:59 PM CDT Hospital Encounter [facility] [address] [facility] [place] [id number] Abiodun Segura II, MD [address] [place] [address] Discharge Disposition: Home or Self Care (Routine [...] have Coronavirus / COVID-19? No / Unsure 09/29/2020 12:57 PM CDT documented as of this encounter [...] No 08/12/2019 3:00 AM CDT TotShelby rodriguez A, R N Active * Do you have difficulty dressing or bathing? Answer Date of Assessment Author Status Yes 08/12/2019 3:00 AM CDT AmoltyShelby A R N Active * Because of a [...] Author Status No 08/12/2019 3:00 AM CDT Jacinta Martineza A, R N Active documented in this encounter Medications at Time of Discharge amLODIPine 10 MG tabletIndications:H ypertension, unspecified type [The details of the medication are not available because there are pending changes by a home health clinician.] 90 tablet 3 1 08/08/19 23 cyclobenzaprine 5 MG tablet Take 5 mg [...] mg by mouth nightly. 7 06/01/19 22 nitrofurantoin 50 MG capsule Take 50 mg [...] st Contact Info) Description 03/14/2024 11:45 AM DRAMA CRITIC Office Visit [facility]-[address] [phone] Marvin Mckeon MD [facility] [address] [place] [address] 03/20/2024 11:30 AM DRAMA CRITIC Office Visit [facility] Family Medicine - [place] [address] [place] [phone] Abiodun Segura II, MD [address] [place] [address] documented as of this encounter Procedures Procedure Name Priority Date/Time Associated Diagnosis Comments XR LUMB SPINE 3V Routine 09/29/2020 1:13 PM CDT Chronic right-sided low back pain with right-sided sciatica documented in this encounter Results * XR LUMB SPINE 3V (09/29/2020 1:13 PM CDT) Anatomical Region Laterality Modality Spine Radiographic Shelli ging 09/29/2020 1:25 PM CDT Impressions 09/29/2020 1:39 PM CDT IMPRESSION: No acute bone findings. Referred By: ?? Interpreted By: Walter Alvarez MD, 09/29/2020 1:25 PM Narrative 09/29/2020 1:39 PM CDT Exam: Lumbar spine x-ray No comparison INDICATION: Right low back pain worsening over 6 months. TECHNIQUE: 3 views FINDINGS: Normal vertebral body heights and alignment. Mild facet sclerosis and hypertrophy at L5-S1. Ovoid left ovarian vein phlebolith based on previous CT location. This measures about 6 x 10 mm. Mild sclerosis along the inferior aspect of the right sacroiliac joint. This appears somewhat asymmetric on radiographs but has a more symmetric appearance on the CT of 09/11/2020. Probable arthritis. Procedure Note Walter Alvarez MD - 09/29/2020 Exam: Lumbar spine x-ray No comparison INDICATION: Right low back pain worsening over 6 months. TECHNIQUE: 3 views FINDINGS: Normal vertebral body heights and alignment. Mild facetsclerosis and hypertrophy at L5-S1. Ovoid left ovarian vein phlebolithbased on previous CT location. This measures about 6 x 10 mm. Mildsclerosis along the inferior aspect of the right sacroiliac joint. Thisappears somewhat asymmetric on radiographs but has a more symmetricappearance on the CT of 09/11/2020. Probable arthritis. IMPRESSION: No acute bone findings. Referred By: Interpreted By: Walter Alvarez MD, 09/29/2020 1:25 PM us Abiodun Segura II, MD GENERAL IMAGING Final R esult documented in this encounter Visit Diagnoses Diagnosis Chronic right-sided low back pain with right-sided sciatica documented in this encounter Additional Health Concerns Assessment Noted Time PHQ-9 Depression Total Score: 0 09/18/19 21 11:35 AM CDT documented as of this encounter Care Teams Oceanographer Assistant Relationship Specialty Start Date End Date Jarred Rod MD PCP - General FAMILY PRACTICE 07/21/15 09/30/20 documented as of this encounter
--- OUTSIDE RECORDS SUMMARY | 2024-03-02 22:30 | XMS_ITS | Encounter Summary ---
Author Organization [facility] Address [address] [place] [address]. [place] [address] [place] [address] Care Team Providers Care Filler Blender Name Role Phone Jarred Rod MD Primary Care Provider Unav ailable Reason for Visit * Reason Comments Follow Up back pain and bladde r infection Encounter Details Date Type Department Care Team (Late st Contact Info) Description 09/24/2020 10:40 AM CDT Office Visit [facility] Medical [facility] Family Medicine [place] [address] [place] [phone] Yasmin Valenzuela II, MD [address] [place] [address] Follow Up (back pain and bladder infection) Social History Tobacco Use Types Packs/Day Years [...] Sign Reading Time Taken Comments Blood Pressure 168/89 09/24/2020 11:10 AM CDT Pulse 51 09/24/2020 11:04 AM CDT Temperature 36.5 ??C (97.7 ??F) 09/24/2020 11:04 AM C DT Respiratory Rate - - Oxygen Saturation 98% 09/24/2020 11:04 AM CDT Inhaled Oxygen Concentration - - Weight 90.3 kg (199 lb) 09/24/2020 11:04 AM CDT Height - - Body Mass Index 32.12 09/11/2020 7:14 PM CDT documented in this [...] Notes * Yasmin Valenzuela II, MD - 09/24/2020 10:40 AM CDT Images from the original note were not included. [facility] MEDICAL [facility]ILY [facility]IC[facility] [place] [id number] [place] [address] OFFICE FOLLOW UP NOTE Encounter Date: 09/24/2020 Chief Complaint: Follow Up (back pain and bladder infection) History of Present Illness: 50-year-old female here to follow-up on right low back pain felt to be secondary to UTI. Patient reports cystitis symptoms are now resolved but back pain is still present. Patient reports that the right-sided low back pain has actually been present for the last 6 to 12 months and is associated withcramping left- sided with any flexion to the right. She has some pain that radiates down into her leg also. Patient also is here to follow-up on diabetes and hypertension. She reports that her morningsugars are often normal or low but that her glucose checks during the day are usually in the 200s. She has a follow-up with Dr. Lutz of endocrinology on 13 October to evaluate her diabetes. Patientis otherwise doing well today. Review Of Systems: Pt denies any cp/sob/n/v/f/c/cruz [...] Gatherings with Friends and Family: ??? Attends [employer] Services: ??? Active Member of Clubs or [...] mouth daily. 90 tablet 3 ??? ciprofloxacin 750 MG tablet Take 1 tablet (750 mg total) by mouth 2 (two) times daily for 7 days. 14 tablet 0 ??? cyclobenzaprine 5 MG tablet Take 5 mg by mouth 3 (three) times daily as needed. ??? docusate sodium 100 MG capsule Take 1 capsule (100 mg total) by mouth 2 (two) times daily. (Patient taking differently: Take 100 mg by mouth 2 (two) times daily as needed. ) 30 capsule 0 ??? HUMALOG MIX 75/25 (75-25) [...] Take 40 mg by mouth nightly. ??? nitrofurantoin 50 MG capsule Take 50 mg by mouth see administration instructions. Take 50mg thesame day or early the day after you have intercourse ??? nitroglycerin 0.[address] [...] mg by mouth nightly at bedtime. ??? TRULICITY 1.5 MG/0.5ML Solution Pen-injector Inject 1.5 mg into the skin every 7 days. INJECT ON SUNDAY 0 ??? HYDROcodone-acetaminophen 5-325 MG tablet Take 1-2 tablets by mouth every 6 (six) hours as needed for Pain. Indications: Acute Pain < 7 Day Supply For Moderate Pain 10 tablet 0 ??? HYDROcodone-acetaminophen 5-325 MG tablet Take 1-2 tablets by mouth every 6 (six) hours as needed. Indications: Acute Pain < 7 Day Supply 20 tablet 0 No current facility-administered medications for this visit. Allergies Allergen Reactions ??? Amoxicillin Rash ??? Penicillins Rash Objective: Filed Vitals: 09/24/20 1104 09/24/20 1110 BP: (!) 144/81 (!) 168/89 Pulse: 51 Temp: 97.7 ??F (36.5 ??C) TempSrc: Oral SpO2: 98% Weight: 90.3 kg (199 lb) Nursing note [...] of motion and neck supple. No rigidity. Lumbar back: Spasms and tenderness present. Negative right straight leg raise test and negative left straight leg raise test. Back: Skin: General: Skin is warm and dry. Neurological: Mental Status: She is alert and oriented to person, place, and time. Psychiatric: Mood and Affect: Mood normal. Behavior: Behavior normal. Thought Content: Thought content normal. Judgment: Judgment normal. Labs: Results for orders placed or performed during the hospital encounter of 09/11/20 XR GREAT TOE RT 3V Narrative EXAMINATION: XR GREAT TOE RT 3V HISTORY: Pain DATE: 09/11/2020 7:33 PM COMPARISON: 11/24/2015 TECHNIQUE: AP, oblique and lateral views of the right great toe FINDINGS: No acute fracture identified. No dislocation. Joint spaces unremarkable. Arterial calcifications. No bone lesions. Impression IMPRESSION: No acute osseous abnormality. Referred By: Interpreted By: Arley Gastelum MD, 09/11/2020 7:52 PM CBC W/DIFF AUTOMATED Result Value Ref [...] COLOR (U) LIGHT YELLOW TRANSPARENCY TURBID Specific Coy (U) 1.014 1.001 - 1.030 U PH [...] (A) NONE /HPF SQUAMOUS EPITHELIALS RARE /HPF CT ABD+PEL W IV CON ONLY Narrative EXAMINATION: ABDOMEN PELVIS CTWITH CONTRAST CLINICAL INDICATION: 40-year-old. Abdominal pain. Acute. Nonlocalized. L: Patient ambulatory to ED with c/o right sided flank pain. Patient states onset of symptoms begana few days ago. Patient originally seen at urgent care in [place]. Patient also reports vaginal discharge and right [...] in the pelvis. Bone window imaging: Unremarkable. Impression IMPRESSION: 1. Stable right hydronephrosis, calyceal clubbing, [...] By: Charlotte Cronin DO, 09/11/2020 9:21 PM CULTURE URINE Specimen: URINE, CLEAN CATCH Result Value Ref Range Spec. Description URINE CLEAN CATCH Special Requests: NO SPECIAL REQUEST Culture Result: POLYMICROBIAL GROWTH CONSISTENT WITH NORMAL GENITAL AIDEN. SUSCEPTIBILITIES NOT ROUTINELY PERFORMED. Counseling The patient and patient's family was counseled regarding instructions for management, patient and family education and importance of compliance with treatment. Assessment: 1. Chronic right-sided low back pain with right-sided sciatica XR LUMB SPINE 3V 2. Hypertension, unspecified type amLODIPine 10 MG tablet 3. Type 2 diabetes mellitus with diabetic neuropathic arthropathy, with long- term current use of insulin ([facility]) 4. Renal calcinosis Plan: Orders Placed This Encounter Medications ??? amLODIPine 10 MG tablet 1. Chronic right-sided low back pain with right-sided sciatica As patient has had 6 to 12 months of pain on the right side with sciatica will obtain plain film x-ray to evaluate for loss of disc height. Follow-up with me in 2 weeks to review results and make further recommendations. - XR LUMB SPINE 3V; Future 2. Hypertension, unspecified type Hypertension is not well controlled. Reviewed medications with patient. She is uncertain as to why metoprolol was started but she does report fatigue since starting metoprolol. We will stop metoprolol and begin amlodipine 10 mg a day. We will recheck blood pressure at follow-up and make adjustmentsas needed. - amLODIPine 10 MG tablet; Take 1 tablet (10 mg total) by mouth daily. Dispense: 90 tablet; Refill:3 3. Type 2 diabetes mellitus with diabetic neuropathic arthropathy, with long- term current use of insulin ([facility]) Suspect the patient has had increased UTIs secondary to poor glucose control. As patient has endocrinology appointment on the we will hold off adjusting medications at this time. Discussed with patient that low-dose Metformin may help us with long-term control. Patient to consider. 4. Renal calcinosis Patient has renal calcinosis which was reportedly stable with normal kidney function. We will continue to monitor. Medications Discontinued During This Encounter Medication Reason ??? metoprolol tartrate 50 MG tablet Ineffective YASMIN VALENZUELA MD 09/24/2020 documented in this encounter Plan of Treatment Upcoming Encounters Date Type Department Care Team (Late st Contact Info) Description 03/14/2024 11:45 AM TITLE ASSISTANT Office Visit [facility] [address] Marvin Mckeon MD Three [facility] [address] [place] [address] 03/20/2024 11:30 AM TITLE ASSISTANT Office Visit [facility] Medical Group Family Medicine - [place] [address] [place] [phone] Yasmin Valenzuela II, MD [address] [place] [address] documented as of this encounter Results * XR LUMB SPINE [...] By: Walter Alvarez MD, 09/29/2020 1:25 PM Yasmin Valenzuela II, MD GENERAL IMAGING Final R esult documented in this encounter Visit Diagnoses Diagnosis Chronic right-sided low back pain with right-sided sciatica- Primary Hypertension, unspecified type Type 2 diabetes mellitus with diabetic neuropathic arthropathy, with long-term current use of insulin ([facility]) 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
--- OUTSIDE RECORDS SUMMARY | 2024-03-02 22:30 | XMS_ITS | Encounter Summary ---
Author Organization [facility] Address [address] [place] [address]. [place], [place] [address] [place] [address] Care Team Providers Care Ssrs Report Developer Name Role Phone Jarred Rod MD Primary Care Provider Unav ailable Shira Shi PA-C Primary Care Provider +1- [phone] Jarred Rod MD Primary Care Provider Unav ailable Colton SILVEIRA MD, Abiodun L Primary Care Provider Jarred Rod MD Primary Care Provider Unav ailable Reason for Visit * Reason Comments Lab (SCAN) Encounter Details Date Type Department Care Team (Latest Contact Info) Description 06/30/2020 Scan [facility] INFO SRVCS Scanned, Documents [...] COVID-19? No / Unsure 01/24/2021 11:10 AM COMPANY DANCER documented as of this encounter Functional Status [...] st Contact Info) Description 03/14/2024 11:45 AM COMPANY DANCER Office Visit [facility] [phone] Marvin Mckeon MD Three [facility] [address] [place], [place] [phone] 03/20/2024 11:30 AM COMPANY DANCER Office Visit [facility] Medical [facility] Family Medicine [place] [phone] Abiodun Segura II, MD [address] [place] [address] documented as of this encounter Procedures Procedure Name Priority Date/Time Associated Diagnosis Comments OUTSIDE LAB (SCAN ORDER) 06/30/2020 documented in this encounter Results * OUTSIDE LAB (SCAN) (06/30/2020) 06/30/2020 Narrative 06/30/2020 Ordered by an unspecified provider. us Documents Scanned SCANNING Final Result documented in this encounter Visit Diagnoses Not on filedocumented in this encounter Care Teams Ssrs Report Developer Relationship Specialty Start Date End Date Jarred Rod MD PCP - General FAMILY PRACTICE 07/21/15 09/30/20 Shira Shi PA-C [address] [place] [address] PCP - General PHYSICIAN SUPERVISOR SLASHING DEPARTMENT 10/01/20 11/17/20 Jarred Rod MD [address] [place] [address] PCP - General FAMILY PRACTICE 11/18/20 12/05/20 Abiodun Segura II, MD [address] [place] [address] PCP - General FAMILY PRACTICE 12/06/20 01/16/21 Jarred Rod MD [address] [place] [address] PCP - General FAMILY PRACTICE 01/17/21 03/08/21 documented as of this encounter
--- OUTSIDE RECORDS SUMMARY | 2024-03-02 22:30 | XMS_ITS | Encounter Summary ---
Author Organization [facility] Address [address] [place] [address]. [place], [place] [address] [place] [address] Care Team Providers Care Grinding Supervisor Name Role Phone Jarred Rdo MD Primary Care Provider Unav ailable Shira Shi PA-C Primary Care Provider +1- [phone] Jarred Rod MD Primary Care Provider Unav ailable Colton SILVEIRA MD, Abiodun L Primary Care Provider Jarred Rod MD Primary Care Provider Unav ailable Reason for Visit * Reason Comments Mammogram (SCAN) Encounter Details Date Type Department Care Team (Late st Contact Info) Description 02/16/2020 Scan [facility] INFO SRVCS Scanned, Documents Mammogram (SCAN) Social History Tobacco Use Types Packs/Day [...] COVID-19? No / Unsure 01/24/2021 11:10 AM GRAIN SACKER documented as of this encounter Functional Status [...] Contact Info) Description 03/14/2024 11:45 AM GRAIN SACKER Office Visit [facility] [phone] Marvin Mckeon MD Three [facility] [address] [place], [place] [address] 03/20/2024 11:30 AM GRAIN SACKER Office Visit [facility] Medical Group Family Medicine - [address] [phone] Abiodun Segura II, MD [address] [place] [address] documented as of this encounter Procedures Procedure Name Priority Date/Time Associated Diagnosis Comments MAMMOGRAM GENERIC (SCAN ORDER) 02/16/2020 documented in this encounter Results * MAMMOGRAM GENERIC (02/16/2020) Anatomical Region Laterality Modality Other 02/16/2020 Narrative 02/16/2020 Ordered by an unspecified provider. us Documents Scanned SCANNING Final Result documented in this encounter Visit Diagnoses Not on filedocumented in this encounter Care Teams Grinding Supervisor Relationship Specialty Start Date End Date Jarred Rod MD PCP - General FAMILY PRACTICE 07/21/15 09/30/20 Shira Shi PA-C [address] [place] [address] PCP - General PHYSICIAN HEARING THERAPY TEACHER 10/01/20 11/17/20 Jarred Rod MD [address] [place] [address] PCP - General FAMILY PRACTICE 11/18/20 12/05/20 Abiodun Segura II, MD [address] [place] [address] PCP - General FAMILY PRACTICE 12/06/20 01/16/21 Jarred Rod MD [address] [place] [address] PCP - General FAMILY PRACTICE 01/17/21 03/08/21 documented as of this encounter
--- OUTSIDE RECORDS SUMMARY | 2024-03-02 22:30 | XMS_ITS | Encounter Summary ---
Author Organization [facility] Address [address] [place] [address]. [place] [address] [place] [address] Care Team Providers Care Vertical Punch Operator Name Role Phone Shira Shi PA-C Primary Care Provider +1- [phone] Reason for Visit * Reason Onset Date Comments Results 10/28/2020 Encounter Details Date Type Department Care Team (Late st Contact Info) Description 10/28/2020 Telephone [facility] Family Medicine - [place] [address] Jarred Rod MD Results Social History Tobacco Use Types Packs/Day [...] Progress Notes * Sydney Cobos MA - 10/28/2020 9:52 AM CDT Left detailed message informing patient that her gallbladder ultrasound was normal * Jarred Rod MD - 10/28/2020 8:27 AM CDT Let Lena know that her gallbladder ultrasound was normal. documented in this encounter Plan of Treatment Upcoming Encounters Date Type Department Care Team (Late st Contact Info) Description 03/14/2024 11:45 AM LINEN GRADER Office Visit [facility] [phone] [facility] [address] [place] [address] 03/20/2024 11:30 AM LINEN GRADER Office Visit [facility] Family Medicine - [place] [address] [place] [phone] Abiodun Segura II, MD 100 [place] [address] documented as of this encounter Visit Diagnoses Not on filedocumented in this encounter Additional Health Concerns Assessment Noted Time PHQ-9 Depression Total Score: 0 10/09/19 21 10:02 AM CDT documented as of this encounter Care Teams Vertical Punch Operator Relationship Specialty Start Date End Date Shira Shi PA-C [address] [place] [phone] PCP - General PHYSICIAN JAVA ENGINEER 10/01/20 11/17/20 documented as of this encounter
--- OUTSIDE RECORDS SUMMARY | 2024-03-02 22:30 | XMS_ITS | Encounter Summary ---
Author Organization [facility] Address [address] [place] [address]. [place] [address] [place] [address] Care Team Providers Care Upsetter Helper Name Role Phone Shira Shi PA-C Primary Care Provider +1- [phone] Encounter Details Date Type Department Care Team (Late st Contact Info) Description 10/28/2020 Orders Only [facility] Medical [facility] Family Medicine - [place] [address] Abstract, Doc [facility] Social History Tobacco Use Types Packs/Day Years [...] Contact Info) Description 03/14/2024 11:45 AM METAL BONDING HELPER Office Visit [facility] [phone] Marvin Mckeon MD Three [facility] [address] [place] [address] 03/20/2024 11:30 AM METAL BONDING HELPER Office Visit [facility] Medical [facility] Family Medicine - [place] [address] [place] [phone] Abiodun Segura II, MD 100 [place] [address] documented as of this encounter Procedures Procedure Name Priority Date/Time Associated Diagnosis Comments FILTER A1C Routine 10/28/2020 documented in this encounter Results * Filter A1C (10/28/2020) us Doc [facility] Abstract GENERAL SUPPLY & EQUIPMENT O RDERABLES Final Result documented in this encounter Visit Diagnoses Not on filedocumented in this encounter Additional Health Concerns Assessment Noted Time PHQ-9 Depression Total Score: 0 10/09/19 10:02 AM CDT documented as of this encounter Care Teams Upsetter Helper Relationship Specialty Start Date End Date Shira Shi PARomaC [address] [place] [address] PCP - General PHYSICIAN TRIM SETTER HELPER 10/01/20 11/17/20 documented as of this encounter
--- OUTSIDE RECORDS SUMMARY | 2024-03-02 22:30 | XMS_ITS | Encounter Summary ---
Author Organization [facility] Address [address] [place] [address]. [place] [address] [place] [address] Care Team Providers Care Oil Well Perforator Operator Name Role Phone Jarred Rod MD Primary Care Provider Unav ailable Reason for Visit * Reason Onset Date Comments Medication Request 09/10/2020 Encounter Details Date Type Department Care Team (Late st Contact Info) Description 09/10/2020 Telephone [facility] Medical Group Family Medicine - [place] [address] [place] [address] Jarred Rod MD Medication Request Social History Tobacco Use Types [...] Progress Notes * Sydney Cobos MA - 09/10/2020 11:20 AM CDT Lena informed that RX was sent to the pharmacy * Jarred Rod MD - 09/10/2020 9:59 AM CDT I e-scribed Diflucan 150mg one tablet for Lena. * Sunshine Figueroa - 09/10/2020 9:07 AM CDT Patient's kidney specialist, Dr. Lucero, prescribed nitrofurantoin mac 50mg, for UTI prevention. Patient now has yeast Infection. Requesting antibiotic. Charan Smallwood documented in this encounter Plan of Treatment Upcoming Encounters Date Type Department Care Team (Late st Contact Info) Description 03/14/2024 11:45 AM CHEMICAL PROCESSOR Office Visit [facility] [phone] Marvin Mckeon MD Three [facility] [address] [place] [address] 03/20/2024 11:30 AM CHEMICAL PROCESSOR Office Visit [facility] Medical Group Family Medicine - [place] [address] [place] [phone] Abiodun Segura II, MD 100 [place] [address] documented as of this encounter Visit Diagnoses Diagnosis Vaginal candidiasis- Primary Candidiasis of vulva and vagina documented in this encounter Care Teams Oil Well Perforator Operator Relationship Specialty Start Date End Date Jarred Rod MD PCP - General FAMILY PRACTICE 07/21/15 09/30/20 documented as of this encounter
--- OUTSIDE RECORDS SUMMARY | 2024-03-02 22:30 | XMS_ITS | Encounter Summary ---
Author Organization [facility] Address [address] [place] [address]. [place], [place] [phone] [place] [address] Care Team Providers Care Public Health Professor Name Role Phone Jarred Rod MD Primary Care Provider Unav ailable Shira Shi PA-C Primary Care Provider +1- [phone] Jarred Rod MD Primary Care Provider Unav ailable Colton SILVEIRA MD, Abiodun L Primary Care Provider Jarred Rod MD Primary Care Provider Unav ailable Encounter Details Date Type Department Care Team (Latest Contact Info) Description 01/12/2020 Scan HEALTH INFO SRVCS Scanned, Documents Social [...] COVID-19? No / Unsure 01/24/2021 11:10 AM DATA CONVERSION OPERATOR documented as of this encounter Functional [...] Author Status No 08/12/2019 3:00 AM CDT Shebly Martinez R N Active documented in this encounter Plan of Treatment Upcoming Encounters Date Type Department Care Team (Late st Contact Info) Description 03/14/2024 11:45 AM DATA CONVERSION OPERATOR Office Visit [facility] [phone] Marvin Mckeon MD [facility] [address] [place] [address] 03/20/2024 11:30 AM DATA CONVERSION OPERATOR Office Visit [facility] Medical Group Family Medicine - [place] [address] [place] [phone] Abiodun Segura II, MD [address] [place] [address] documented as of this encounter Visit Diagnoses Not on filedocumented in this encounter Additional Health Concerns Infection Onset Date Last Indicated Resolved Time COVID-19 Confirmed 12/13/2019 12/13/2019 0 12:34 AM DATA CONVERSION OPERATOR documented as of this encounter Care Teams Public Health Professor Relationship Specialty Start Date End Date Jarred Rod MD PCP - General FAMILY PRACTICE 07/21/15 09/30/20 Shira Shi PA-C [address] [place] [address] PCP - General PHYSICIAN DESIGN SPECIALIST 10/01/20 11/17/20 Jarred Rod MD [address] [place] [address] PCP - General FAMILY PRACTICE 11/18/20 12/05/20 Abiodun Segura II, MD [address] [place] [address] PCP - General FAMILY PRACTICE 12/06/20 01/16/21 Jarred Rod MD [address] [place] [address] PCP - General FAMILY PRACTICE 01/17/21 03/08/21 documented as of this encounter
--- OUTSIDE RECORDS SUMMARY | 2024-03-02 22:30 | XMS_ITS | Encounter Summary ---
Author Organization [facility] Address [address] [place] [address]. [place], [place] [address] [place] [address] Care Team Providers Care Corporate Learning Consultant Name Role Phone Jarred Rod MD Primary Care Provider Unav ailable Shira Shi PA-C Primary Care Provider +1- [phone] Jarred Rod MD Primary Care Provider Unav ailable Colton SILVEIRA MD, Abiodun L Primary Care Provider Jarred Rod MD Primary Care Provider Unav ailable Reason for Visit * Reason Comments Mammogram (SCAN) Encounter Details Date Type Department Care Team ([facility] st Contact Info) Description 03/15/2020 Scan HEALTH INFO SRVCS Scanned, Documents Mammogram (SCAN) [...] COVID-19? No / Unsure 01/24/2021 11:10 AM CEMETERY COUNSELOR documented as of this encounter Functional Status [...] st Contact Info) Description 03/14/2024 11:45 AM CEMETERY COUNSELOR Office Visit [facility] [phone] [facility] [address] [place], [place] [phone] 03/20/2024 11:30 AM CEMETERY COUNSELOR Office Visit [facility] Family Medicine - [address] [phone] Abiodun Segura II, MD [address] [place] [address] documented as of this encounter Procedures Procedure Name Priority Date/Time Associated Diagnosis Comments MAMMOGRAM GENERIC (SCAN ORDER) 03/15/2020 documented in this encounter Results * MAMMOGRAM GENERIC (03/15/2020) Anatomical Region Laterality Modality Other 03/15/2020 Narrative 03/15/2020 Ordered by an unspecified provider. us Documents Scanned SCANNING Final Result documented in this encounter Visit Diagnoses Not on filedocumented in this encounter Care Teams Corporate Learning Consultant Relationship Specialty Start Date End Date Jarred Rod MD PCP - General FAMILY PRACTICE 07/21/15 09/30/20 Shira Shi PA-C [address] [place] [address] PCP - General PHYSICIAN SHOW CARD LETTERER 10/01/20 11/17/20 Jarred Rod MD [address] [place] [address] PCP - General FAMILY PRACTICE 11/18/20 12/05/20 Abiodun Segura II, MD [address] [place] [address] PCP - General FAMILY PRACTICE 12/06/20 01/16/21 Jarred Rod MD [address] [place] [address] PCP - General FAMILY PRACTICE 01/17/21 03/08/21 documented as of this encounter
--- OUTSIDE RECORDS SUMMARY | 2024-03-02 22:30 | XMS_ITS | Encounter Summary ---
Author Organization [facility] Address [address] [place] [address]. [place] [address] [place] [address] Care Team Providers Care Playroom Attendant Name Role Phone Jarred Rod MD Primary Care Provider Unav ailable Encounter Details Date Type Department Care Team (Latest Contact Info) Description 11/18/2020 Travel Social History Tobacco Use Types Packs/Day [...] AM CDT TotShelby rodriguez R N Active documented as of this [...] st Contact Info) Description 03/14/2024 11:45 AM UNIVERSITY DEAN Office Visit [facility] [address] Marvin Mckeon MD [facility] [address] [place] [address] 03/20/2024 11:30 AM UNIVERSITY DEAN Office Visit [facility] Family Medicine - [place] 100 [place] [phone] Abiodun Segura II, MD 100 [place] [address] documented as of this encounter Visit Diagnoses Not on filedocumented in this encounter Additional Health Concerns Assessment Noted Time PHQ-9 Depression Total Score: 0 10/09/19 21 10:02 AM CDT documented as of this encounter Care Teams Playroom Attendant Relationship Specialty Start Date End Date Jarred Rod MD PCP - General FAMILY PRACTICE 11/18/20 12/05/20 documented as of this encounter
--- OUTSIDE RECORDS SUMMARY | 2024-03-02 22:30 | XMS_ITS | Encounter Summary ---
Author Organization [facility] Address [address] [place] [address]. [place] [address] [place] [address] Care Team Providers Care Console Operator Name Role Phone Jarred Rod MD Primary Care Provider Unav ailable Encounter Details Date Type Department Care Team (Latest Contact Info) Description 09/17/2020 Travel Social History Tobacco Use Types Packs/Day [...] have Coronavirus / COVID-19? No / Unsure 09/17/2020 11:06 AM CDT documented as of this encounter [...] st Contact Info) Description 03/14/2024 11:45 AM EQUIPMENT ENGINEERING TECHNICIAN Office Visit [facility] [address] Marvin Mckeon MD [facility] [address] [place] [address] 03/20/2024 11:30 AM EQUIPMENT ENGINEERING TECHNICIAN Office Visit [facility] Family Medicine - [place] 100 [place] [phone] Abiodun Segura II, MD 100 [place] [address] documented as of this encounter Visit Diagnoses Not on filedocumented in this encounter Additional Health Concerns Assessment Noted Time PHQ-9 Depression Total Score: 0 09/18/19 21 11:35 AM CDT documented as of this encounter Care Teams Console Operator Relationship Specialty Start Date End Date Jarred Rod MD PCP - General FAMILY PRACTICE 07/21/15 09/30/20 documented as of this encounter
--- OUTSIDE RECORDS SUMMARY | 2024-03-02 22:30 | XMS_ITS | Encounter Summary ---
Author Organization [facility] Address [address] [place] [address]. [place], [place] [address] [place] [address] Care Team Providers Care Bilingual Loan Processor Name Role Phone Jarred Rod MD Primary Care Provider Unav ailable Shira Shi PA-C Primary Care Provider +1- [phone] Jarred Rod MD Primary Care Provider Unav ailable Colton SILVEIRA MD, Abiodun L Primary Care Provider Jarred Rod MD Primary Care Provider Unav ailable Reason for Visit * Reason Comments Bone Density Report (SCAN) Encounter Details Date Type Department Care Team (Late st Contact Info) Description 07/29/2020 Scan HEALTH INFO SRVCS Scanned, Documents Bone Density Report (SCAN) Social History Tobacco Use Types Packs/Day [...] COVID-19? No / Unsure 01/24/2021 11:10 AM STAMP MAKER documented as of this encounter Functional [...] st Contact Info) Description 03/14/2024 11:45 AM STAMP MAKER Office Visit [facility] [phone] Marvin Mckeon MD [facility] [address] [place], [place] [phone] 03/20/2024 11:30 AM STAMP MAKER Office Visit [facility] Medical [facility] Family Medicine - [place] [phone] Abiodun Segura II, MD [address] [place] [address] documented as of this encounter Procedures Procedure Name Priority Date/Time Associated Diagnosis Comments BONE DENSITY GENERIC (SCAN ORDER) 07/29/2020 documented in this encounter Results * BONE DENSITY GENERIC (07/29/2020) Anatomical Region Laterality Modality Other 07/29/2020 Narrative 07/29/2020 Ordered by an unspecified provider. us Documents Scanned SCANNING Final Result documented in this encounter Visit Diagnoses Not on filedocumented in this encounter Care Teams Bilingual Loan Processor Relationship Specialty Start Date End Date Jarred Rod MD PCP - General FAMILY PRACTICE 07/21/15 09/30/20 Shira Shi PA-C [address] [place] [address] PCP - General PHYSICIAN DRAFTER SEISMOGRAPH 10/01/20 11/17/20 Jarred Rod MD [address] [place] [address] PCP - General FAMILY PRACTICE 11/18/20 12/05/20 Abiodun Segura II, MD [address] [place] [address] PCP - General FAMILY PRACTICE 12/06/20 01/16/21 Jarred Rod MD [address] [place] [address] PCP - General FAMILY PRACTICE 01/17/21 03/08/21 documented as of this encounter
--- OUTSIDE RECORDS SUMMARY | 2024-03-02 22:30 | XMS_ITS | Encounter Summary ---
Author Organization [facility] Address [address] [place] [address]. [place] [address] [place] [address] Care Team Providers Care Market Development Director Name Role Phone Jarred Rod MD Primary Care Provider Unav ailable Encounter Details Date Type Department Care Team (Latest Contact Info) Description 12/13/2019 Travel Social History Tobacco Use Types Packs/Day [...] st Contact Info) Description 03/14/2024 11:45 AM PRESIDENT SALES AND MARKETING Office Visit [facility] [phone] Marvin Mckeon MD [facility] [address] [place] [address] 03/20/2024 11:30 AM PRESIDENT SALES AND MARKETING Office Visit [facility] Family Medicine - [address] [phone] Abiodun Segura II, MD [address] [place] [address] documented as of this encounter Visit Diagnoses Not on filedocumented in this encounter Additional Health Concerns Infection Onset Date Last Indicated Resolved Time COVID-19 Rule Out 12/13/2019 12/13/2019 12/14/2019 3:06 PM CDT documented as of this encounter Care Teams Market Development Director Relationship Specialty Start Date End Date Jarred Rod MD PCP - General FAMILY PRACTICE 07/21/15 09/30/20 documented as of this encounter
--- OUTSIDE RECORDS SUMMARY | 2024-03-02 22:30 | XMS_ITS | Encounter Summary ---
Author Organization [facility] Address [address] [place] [address]. [place] [address] [place] [address] Care Team Providers Care Slider Assembler Name Role Phone Jarred Rod MD Primary Care Provider Unav ailable Encounter Details Date Type Department Care Team (Latest Contact Info) Description 09/24/2020 Travel Social History Tobacco Use Types Packs/Day [...] st Contact Info) Description 03/14/2024 11:45 AM CEMENTING MACHINE OPERATOR Office Visit [facility]-[address] [phone] Marvin Mckeon MD [facility] [address] [place] [address] 03/20/2024 11:30 AM CEMENTING MACHINE OPERATOR Office Visit [facility] Family Medicine - [place] 100 [place] [phone] Abiodun Segura II, MD 100 [place] [address] documented as of this encounter Visit Diagnoses Not on filedocumented in this encounter Additional Health Concerns Assessment Noted Time PHQ-9 Depression Total Score: 0 09/18/19 21 11:35 AM CDT documented as of this encounter Care Teams Slider Assembler Relationship Specialty Start Date End Date Jarred Rod MD PCP - General FAMILY PRACTICE 07/21/15 09/30/20 documented as of this encounter
--- OUTSIDE RECORDS SUMMARY | 2024-03-02 22:30 | XMS_ITS | Encounter Summary ---
Author Organization [facility] Address [address] [place] [address]. [place], [place] [address] [place] [address] Care Team Providers Care Thermite Bomb Loader Name Role Phone Jarred Rod MD Primary Care Provider Unav ailable Encounter Details Date Type Department Care Team (Late st Contact Info) Description 09/30/2020 Abstract [facility] [address] [place] [phone] Abstract, Doc [facility] Social History Tobacco Use [...] st Contact Info) Description 03/14/2024 11:45 AM MILK POWDER GRINDER Office Visit [facility] [phone] Marvin Mckeon MD Three [facility] [address] [place], [place] [phone] 03/20/2024 11:30 AM MILK POWDER GRINDER Office Visit [facility] Family Medicine - [place] 100 [place] [phone] Abiodun Segura II, MD 100 [place], [place] [phone] documented as of this encounter Procedures Procedure Name Priority Date/Time Associated Diagnosis Comments HEMOGLOBIN, GLYCOSYLATED Routine 12/14/2019 documented in this encounter Results * HEMOGLOBIN, GLYCOSYLATED (12/14/2019) HGB A1C 8.2 % 12/14/2019 us Doc [facility] Abstract LABORATORY Final Result documented in this encounter Visit Diagnoses Not on filedocumented in this encounter Additional Health Concerns Assessment Noted Time PHQ-9 Depression Total Score: 0 09/18/19 21 11:35 AM CDT documented as of this encounter Care Teams Thermite Bomb Loader Relationship Specialty Start Date End Date Jarred Rod MD PCP - General FAMILY PRACTICE 07/21/15 09/30/20 documented as of this encounter
--- OUTSIDE RECORDS SUMMARY | 2024-03-02 22:30 | XMS_ITS | Encounter Summary ---
Author Organization [facility] Address [address] [place] [address]. [place], [place] [address] [place] [address] Care Team Providers Care Fire Marshal Refinery Name Role Phone Shira Shi PA-C Primary Care Provider +1- [phone] Jarred Rod MD Primary Care Provider Unav ailable Encounter Details Date Type Department Care Team (Latest Contact Info) Description 10/26/2020 Scan HEALTH INFO SRVCS Scanned, Documents Social [...] Contact Info) Description 03/14/2024 11:45 AM SHIRT HEMMER Office Visit [facility] [phone] Marvin Mckeon MD Three [facility] [address] [place] [address] 03/20/2024 11:30 AM SHIRT HEMMER Office Visit [facility] Family Medicine - [place] 100 [place] [phone] Abiodun Segura II, MD 100 [place] [address] documented as of this encounter Visit Diagnoses Not on filedocumented in this encounter Additional Health Concerns Assessment Noted Time PHQ-9 Depression Total Score: 0 10/09/19 21 10:02 AM CDT documented as of this encounter Care Teams Fire Marshal Refinery Relationship Specialty Start Date End Date Shira Shi PA-C 100 [place] [address] PCP - General PHYSICIAN ORNAMENTAL RAIL INSTALLER 10/01/20 11/17/20 Jarred Rod MD [address] [place] [address] PCP - General FAMILY PRACTICE 11/18/20 12/05/20 documented as of this encounter
--- OUTSIDE RECORDS SUMMARY | 2024-03-02 22:30 | XMS_ITS | Encounter Summary ---
Author Organization [facility] Address [address] [place] [address]. [place] [address] [place] [address] Care Team Providers Care Cell Manager Name Role Phone Jarred Rod MD Primary Care Provider Unav ailable Encounter Details Date Type Department Care Team (Latest Contact Info) Description 09/29/2020 Travel Social History Tobacco Use Types Packs/Day [...] Info) Description 03/14/2024 11:45 AM DIRECTOR OF DANCE Office Visit [facility]-[address] [address] Marvin Mckeon MD [facility] [address] [place] [address] 03/20/2024 11:30 AM DIRECTOR OF DANCE Office Visit [facility] Family Medicine - [place] 100 [place] [phone] Abiodun Segura II, MD 100 [place] [address] documented as of this encounter Visit Diagnoses Not on filedocumented in this encounter Additional Health Concerns Assessment Noted Time PHQ-9 Depression Total Score: 0 09/18/19 21 11:35 AM CDT documented as of this encounter Care Teams Cell Manager Relationship Specialty Start Date End Date Jarred Rod MD PCP - General FAMILY PRACTICE 07/21/15 09/30/20 documented as of this encounter
--- OUTSIDE RECORDS SUMMARY | 2024-03-02 22:30 | XMS_ITS | Encounter Summary ---
Author Organization [facility] Address [address] [place] [address]. [place], [place] [address] [place] [address] Care Team Providers Care Sizing End Bander Name Role Phone Jarred Rod MD Primary Care Provider Unav ailable Shira Shi PA-C Primary Care Provider +1- [phone] Jarred Rod MD Primary Care Provider Unav ailable Colton SILVEIRA MD, Abiodun L Primary Care Provider Jarred Rod MD Primary Care Provider Unav ailable Encounter Details Date Type Department Care Team (Latest Contact Info) Description 06/21/2020 Scan HEALTH INFO SRVCS Scanned, Documents Social [...] COVID-19? No / Unsure 01/24/2021 11:10 AM METER ENGINEER documented as of this encounter Functional Status [...] st Contact Info) Description 03/14/2024 11:45 AM METER ENGINEER Office Visit [facility] [address] Marvin Mckeon MD Three [facility] [address] [place] [address] 03/20/2024 11:30 AM METER ENGINEER Office Visit [facility] Medical Group Family Medicine - [place] [phone] Abiodun Segura II, MD [address] [place] [address] documented as of this encounter Visit Diagnoses Not on filedocumented in this encounter Care Teams Sizing End Bander Relationship Specialty Start Date End Date Jarred Rod MD PCP - General FAMILY PRACTICE 07/21/15 09/30/20 Shira Shi PA-C [address] [place] [address] PCP - General PHYSICIAN TRANSPORTATION PLANNING TECHNICIAN 10/01/20 11/17/20 Jarred Rod MD [address] [place] [address] PCP - General FAMILY PRACTICE 11/18/20 12/05/20 Abiodun Segura II, MD [address] [place] [address] PCP - General FAMILY PRACTICE 12/06/20 01/16/21 Jarred Rod MD [address] [place] [address] PCP - General FAMILY PRACTICE 01/17/21 03/08/21 documented as of this encounter
--- OUTSIDE RECORDS SUMMARY | 2024-03-02 22:30 | XMS_ITS | Encounter Summary ---
Author Organization [facility] Address [address] [place] [address]. [place] [address] [place] [address] Care Team Providers Care Osha Inspector Name Role Phone Jarred Rod MD Primary Care Provider Unav ailable Reason for Visit * Reason Comments Lab (SCAN) Encounter Details Date Type Department Care Team (Late st Contact Info) Description 09/15/2020 Scan [facility] Information Services [place], [place] [phone] Scanned, Documents Lab (SCAN) Social History Tobacco [...] st Contact Info) Description 03/14/2024 11:45 AM POSTDOCTORAL FELLOW Office Visit [facility] [address] Marvin Mckeon MD Three [facility] [address] [place] [address] 03/20/2024 11:30 AM POSTDOCTORAL FELLOW Office Visit [facility] Medical Group Family Medicine - [place] 100 [place] [phone] Abiodun Segura II, MD 100 [place] [address] documented as of this encounter Procedures Procedure Name Priority Date/Time Associated Diagnosis Comments OUTSIDE LAB (SCAN ORDER) Routine 09/11/2020 documented in this encounter Results * OUTSIDE LAB (SCAN) (09/11/2020) 09/11/2020 us Documents Scanned SCANNING Final Result [facility] ON[facility] documented in this encounter Visit Diagnoses Not on filedocumented in this encounter Care Teams Osha Inspector Relationship Specialty Start Date End Date Jarred Rod MD PCP - General FAMILY PRACTICE 07/21/15 09/30/20 documented as of this encounter
--- OUTSIDE RECORDS SUMMARY | 2024-03-02 22:30 | XMS_ITS | Encounter Summary ---
Author Organization [facility] Address [address] [place] [address]. [place], [place] [address] [place] [address] Care Team Providers Care Steward/Stewardess Second Name Role Phone Jarred Rod MD Primary Care Provider Unav ailable Shira Shi PA-C Primary Care Provider +1- [phone] Jarred Rod MD Primary Care Provider Unav ailable Colton SILVEIRA MD, Abiodun L Primary Care Provider Jarred Rod MD Primary Care Provider Unav ailable Encounter Details Date Type Department Care Team (Latest Contact Info) Description 12/14/2019 Scan HEALTH INFO SRVCS Scanned, Documents Social [...] COVID-19? No / Unsure 01/24/2021 11:10 AM MOLDED GOODS OPERATOR documented as of this encounter Functional [...] st Contact Info) Description 03/14/2024 11:45 AM MOLDED GOODS OPERATOR Office Visit [facility]-[address] [address] Marvin Mckeon MD [facility] [address] [place] [address] 03/20/2024 11:30 AM MOLDED GOODS OPERATOR Office Visit [facility] Medical Group Family Medicine - [place] 100 [place] [phone] Abiodun Segura II, MD [address] [place] [address] documented as of this encounter Visit Diagnoses Not on filedocumented in this encounter Additional Health Concerns Infection Onset Date Last Indicated Resolved Time COVID-19 Rule Out 12/13/2019 12/13/2019 12/14/2019 3:06 PM CDT COVID-19 Confirmed 12/13/2019 12/13/2019 0 12:34 AM MOLDED GOODS OPERATOR documented as of this encounter Care Teams Steward/Stewardess Second Relationship Specialty Start Date End Date Jarred Rod MD PCP - General FAMILY PRACTICE 07/21/15 09/30/20 Shira Shi PA-C [address] [place] [address] PCP - General PHYSICIAN PRODUCT RESPONSIBILITY LIAISON 10/01/20 11/17/20 Jarred Rod MD [address] [place] [address] PCP - General FAMILY PRACTICE 11/18/20 12/05/20 Abiodun Segura II, MD [address] [place] [address] PCP - General FAMILY PRACTICE 12/06/20 01/16/21 Jarred Rod MD [address] [place] [address] PCP - General FAMILY PRACTICE 01/17/21 03/08/21 documented as of this encounter
--- OUTSIDE RECORDS SUMMARY | 2024-03-02 22:30 | XMS_ITS | Encounter Summary ---
Author Organization [facility] Address [address] [place] [address]. [place], [place] [address] [place] [address] Care Team Providers Care Dental Office Receptionist Name Role Phone Jarred Rod MD Primary Care Provider Unav ailable Shira Shi PA-C Primary Care Provider +1- [phone] Jarred Rod MD Primary Care Provider Unav ailable Colton SILVEIRA MD, Abiodun L Primary Care Provider Jarred Rod MD Primary Care Provider Unav ailable Reason for Visit * Reason Comments Image (SCAN) Encounter Details Date Type Department Care Team (Latest Contact Info) Description 04/12/2020 Scan HEALTH INFO SRVCS Scanned, Documents Image (SCAN) Social History Tobacco Use Types [...] COVID-19? No / Unsure 01/24/2021 11:10 AM INDUSTRIAL NURSE documented as of this encounter Functional Status [...] Contact Info) Description 03/14/2024 11:45 AM INDUSTRIAL NURSE Office Visit [facility] [address] Marvin Mckeon MD Three [facility] [address] [place], [place] [phone] 03/20/2024 11:30 AM INDUSTRIAL NURSE Office Visit [facility] Medical Group Family Medicine - [place] [phone] Abiodun Segura II, MD [address] [place] [address] documented as of this encounter Procedures Procedure Name Priority Date/Time Associated Diagnosis Comments IMAGE GENERIC 04/12/2020 documented in this encounter Results * IMAGE GENERIC (04/12/2020) Anatomical Region Laterality Modality Other 04/12/2020 Narrative 04/12/2020 Ordered by an unspecified provider. us Documents Scanned SCANNING Final Result documented in this encounter Visit Diagnoses Not on filedocumented in this encounter Care Teams Dental Office Receptionist Relationship Specialty Start Date End Date Jarred Rod MD PCP - General FAMILY PRACTICE 07/21/15 09/30/20 Shira Shi PA-C [address] [place] [address] PCP - General PHYSICIAN FIELD ACCOUNT MANAGER 10/01/20 11/17/20 Jarred Rod MD [address] [place] [address] PCP - General FAMILY PRACTICE 11/18/20 12/05/20 Abiodun Segura II, MD [address] [place] [address] PCP - General FAMILY PRACTICE 12/06/20 01/16/21 Jarred Rod MD [address] [place] [address] PCP - General FAMILY PRACTICE 01/17/21 03/08/21 documented as of this encounter
--- OUTSIDE RECORDS SUMMARY | 2024-03-02 22:30 | XMS_ITS | Encounter Summary ---
Author Organization [facility] Address [address] [place] [address]. [place], [place] [id number] [place] [address] Care Team Providers Care Operations Intelligence Name Role Phone Jarred Rod MD Primary Care Provider Unav ailable Encounter Details Date Type Department Care Team (Latest Contact Info) Description 09/11/2020 Travel Social History Tobacco Use Types Packs/Day [...] Author Status No 08/12/2019 3:00 AM CDT Juan ShelbyStephen Tolbert Active * Do you have difficulty dressing or bathing? Answer Date of Assessment Author Status Yes 08/12/2019 3:00 AM CDT Juan ShelbyStephen Tolbert Active * Because of a physical, mental, or emotional condition, do you have difficulty doing errands alone such as visiting a doctor's office or shopping? Answer Date of Assessment Author Status Yes 08/12/2019 3:00 AM CDT Juan ShelbyStephen Tolbert N Active documented as of this encounter Mental Status * Because of a physical, mental, or emotional condition, do you have serious difficulty concentrating, remembering, or making decisions? Answer Entry Date Author Status No 08/12/2019 3:00 AM CDShelby Causey R N Active documented in this encounter Plan of Treatment Upcoming Encounters Date Type Department Care Team (Late st Contact Info) Description 03/14/2024 11:45 AM CHAR FILTER OPERATOR HELPER Office Visit [facility] [phone] Marvin Mckeon MD [facility] [address] [place] [address] 03/20/2024 11:30 AM CHAR FILTER OPERATOR HELPER Office Visit [facility] Family Medicine - [address] [phone] Abiodun Segura II, MD [address] [place] [address] documented as of this encounter Visit Diagnoses Not on filedocumented in this encounter Care Teams Operations Intelligence Relationship Specialty Start Date End Date Jarred Rod MD PCP - General FAMILY PRACTICE 07/21/15 09/30/20 documented as of this encounter
--- OUTSIDE RECORDS SUMMARY | 2024-03-02 22:30 | XMS_ITS | Encounter Summary ---
Author Organization [facility] Address [address] [place] [address]. [place] [address] [place] [address] Care Team Providers Care Barbed Wire Machine Operator Name Role Phone Colton SILVEIRA MD, Abiodun Rushing Primary Care Provider Reason for Visit * Physical Medicine (Routine) - Closed Specialty Diagnoses / Procedures Referred By Contact Referred To Contact PHYSICAL THERAPY / [facility] Physical Therapy Diagnoses Chronic bilateral low back pain without sciatica Shira Shi PA-C [address] [place] [address] Phone: tel: fax: [facility] [place] [address] Phone: tel: fax: Referral ID Status Reason Start Date Expiration Date V isits Requested Visits Authorized [id number] Closed Physical Therapy 12/14/2020 01/13/2022 10 10 Encounter Details Date Type Department Care Team (Late st Contact Info) Description 12/30/2020 10:05 AM BURLAPPER - 12/30/2020 11:[address] [facility] Hospital Encounter [facility] [place], [place] [phone] Abiodun Segura II, MD [address] [place] [address] Tracey Walker, [place] [address] Discharge Disposition: Home or Self Care (Routine [...] have Coronavirus / COVID-19? No / Unsure 12/30/2020 10:03 AM BURLAPPER documented as of this encounter Functional Status [...] documented in this encounter Discharge Instructions * Patient Instructions* Tracey Walker, PT - 12/30/2020 10:15 AM BURLAPPER Access Code: [email or web address] URL: [email or web address] Date: 12/30/2020 Prepared by: Tracey Walker Exercises ?? Supine Posterior Pelvic Tilt - 1 x daily - 7 x weekly - 10 reps ?? Supine Transversus Abdominis Bracing - Hands on Stomach - 1 x daily - 7 x weekly - 10 reps ?? Lower Trunk Rotation with Compression Garment - 1 x daily - 7 x weekly - 10 reps ?? Supine Piriformis Stretch with Foot on Ground - 1 x daily - 7 x weekly - 3 reps - 20-30 hold ?? Sit to Stand with Armchair - 1 x daily - 7 x weekly - 3 sets - 10 reps Patient Education ?? Office Posture ?? Sleep Positions APPER documented in this encounter Medications at Time [...] use of insulin ([facility]) USE 1 SYRINGE SUBCUTANEOUSLY TWICE [...] use of insulin ([facility]) INJECT 1.5 MG SUBCUTANEOUSLY ONCE EVERY 7 DAYS 4 mL 1 1 03/21/19 22 documented as of this encounter Progress Notes * Tracey Walker, PT - 12/30/2020 10:15 AM CST Physical Therapy Evaluation Date: 12/30/2020 Patient Name: Lena Mcneal : 1970 Diagnosis: SNOMED CT(R) 1. Back pain BACKACHE 2. DDD (degenerative disc disease), lumbar DEGENERATION OF LUMBAR INTERVERTEBRAL DISC 3. Altered gait ABNORMAL GAIT Subjective the patient is a 50 yo female with multiple medical problems. She is here today with chief complaint of low back pain ongoing since September of this year. She denies any injury to her back it just started to give her pain. She rates her pain as 8/10 and cont. And she has difficulty with transitions due to pain such as sit to stand and in and out of bed. She is in a wheelchair most of herday and doesn't walk a lot due to having a history with her feet and back. 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 She hasused a walking boot in the past due to infections and amputations to her feet and that boot on the left has made her left hip hurt. She also shared she has sharp pain to her left foot when she gets up and down so she doesn't use it or put weight on it. She walks very rarely now due to her back painbeing so sharp and she has difficulty even getting up to get water or use the bathroom and she willwait as long as she can. Due to her medical issues, her daughter assists her with dressing and bathing and cooking. She does feel her back pain has reduced ability to go out and do things due to painwith walking and transitions. Her goal is less pain and improved mobility. She has notes having some pain to the front of her right hip and stomach area. 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 See scanned patient history OBJECTIVE: POSTURE: feet abducted reduced weight to left leg and foot slight side bend to right GAIT:ambulates with reduced hip flexion and DF to her ankles and she tends to over DF her toes. Wide AMADA and slow meliton. PALPATION: tender to her left hip laterally and in lateral rotators, along glutes at her belt line and into her left lumbar paraspinals. Not much tenderness to her right side. LUMBAR AROM: Flexion WNL no change in pain returns with increased use of back vs hip extension Extension pain reduced Sidebending WNL pain to left with both sides Rotation WNL to left but reduced to right with left hip tightness noted HIP ROM: Flexion R WNL L 90 and crampy ER 35 both IR 10 both pain on left Knee ROM: Flex: R 125 L 110 pain to hamstrings Ext: 0 bilaterally LE STRENGTH: Hip : Flexion R 4+ L 4 and tremors Abduction R 4 L 3 and painful ER 4 IR 4 Knee: Flexion 4 Extension R 4+ L 4- Ankle Dorsiflexion 4 use of toes on left foot PF 4 Core Strength: Lower abdominals: Weakness noted with transition Back extensors: Tight and tender on left paraspinals Flexibility: Hamstrings: tightness bilaterally Piriformis: L>R ITB: Tight on left NEURO SCREENING: Sensation: Altered to light touch on left outside calf and inner calf Special Tests: SLR negative but stiff on left SI assessment:anterior tilt on right Functional Tests: Sit to stand with reduced weight shift to left LE all to right Physical Therapy Certification Form - Spine Treatment Today: Initial Evaluation completed with patient education on evaluation findings and plan of care Postural Education: seated and sleeping posture to aid with healing HEP instruction: see wrap up Outcome tool: oswestry Score: 28/45 56% deficit Therapy Exercise see wrap up Timed Code Tx Minutes 15 Units 1 Total Tx Time 50 15 Therapeutic Exercise Therapy Diagnosis: Difficulty Walking Low Back Pain Muscle Spasm other Muscle weakness (generalized-multiple) Other Abnormalities of Gait and Mobility (Pain/Weakness/Instability/Unsteady) Patient demonstrated Good understanding of above education and HEP. Rehab Potential Fair Assessment: the patient has multiple medical issues associated with her diabetes and her feet. She reduced use to her left LE with transitions due to pain and that puts stress to her right side. She has reduced AROM to her left hip and knee and bilateral LE weakness with reduced use of her legs andwalking. She will benefit from skilled PT to address these deficits to promote hip and knee mobility to reduce pain and education on mobility at home to manage her LE strength. Therapy Goals: (Goals to be met by discharge) 1. Increase ROM/ flexibility of left hip with improved flexion and adduction to allow for improved sit to stand and gait 2. Good Posture/body Mechanics with sitting and sleeping to aid with reduced pain and promote healing of irritated tissue. 3. Independent HEP 4. Decrease pain to low back < 5/10 to allow for improved ability to participate with activity outside of home and allow for increased transitions. 5. Decrease muscle spasm/tissue tension to back and abdomin for improved mobility 6. Functional Gait pattern/equal weight bearing with safe technique and use of AAD and ankle mobility to assist with reduced left LE pain 7. Increase strength by 1/2-1 grade to hips and knees for improved back pain and transitions 8. Improved function with reduced pain as noted with oswestry score. Assessment Eval Complexity Personal Factor/Co-morbidities: 1-2 (Mod) Chronicity, Coping Styles, Diabetic Status, Fear of Movement, HTN Examination of Body Systems Needing Addressed: 3 or more (Mod) Balance or Coordination Deficits, Bed Mobility Deficits, LE Deficits, Muscle Tension, Standing Deficits Clinical Presentation of Patient: Evolving (Mod) Stable and uncomplicated - no other factors Clinical Decision Making: Mod Patient to be seen for: balance, biofeedback, body mechanics education, flexibilty, gait, home exercise program, instruction in self-help/behavior modification, manual therapy, modalities, neuromuscular reeducation, posture education, PRN, ROM, strengthening Next Visit: Review HEP and patient education. Address seated and sleeping posture- handouts issued.Address sit to stand with use of hip hinge vs using her back. Address ankle mobility to left foot and hip flexibility to left hip to reduced stress to low back and pain level. Progress to strength ofhips and legs with gait activities as able to safely. Frequency: 1-2 times per week for 10 visits. Therapist: Tracey Walker PT Date: 12/30/20 Time: 12:03 PM Physician Signature: Date: Time: Patient Name: Lena Mcneal : 1970 Cosigned by Shira Shi PA-C at 01/02/2021 9:20 PM BURLAPPER APPER APPER documented in this encounter Plan of Treatment Upcoming Encounters Date Type Department Care Team (Late st Contact Info) Description 03/14/2024 11:45 AM BURLAPPER Office Visit [facility] [phone] Marvin Mckeon MD Three [facility] [address] [place] [address] 03/20/2024 11:30 AM BURLAPPER Office Visit [facility] Family Medicine - [address] [place] [phone] Abiodun Segura II, MD [address] [place] [address] documented as of this encounter Visit Diagnoses Diagnosis Back pain- Primary Backache, unspecified DDD (degenerative disc disease), lumbar Degeneration of lumbar or lumbosacral intervertebral disc Altered gait Abnormality of gait documented in this encounter Additional Health Concerns Assessment Noted Time PHQ-9 Depression Total Score: 0 10/09/19 21 10:02 AM CDT documented as of this encounter Care Teams Barbed Wire Machine Operator Relationship Specialty Start Date End Date Abiodun Segura II, MD [address] [place] [address] PCP - General FAMILY PRACTICE 12/06/20 01/16/21 documented as of this encounter
--- OUTSIDE RECORDS SUMMARY | 2024-03-02 22:30 | XMS_ITS | Encounter Summary ---
Author Organization [facility] Address [address] [place] [address]. [place], [place] [phone] [place] [address] Care Team Providers Care Compounding Assistant Name Role Phone Shira Shi PA-C Primary Care Provider +1- [phone] Encounter Details Date Type Department Care Team (Latest Contact Info) Description 10/08/2020 Travel Social History Tobacco Use Types Packs/Day [...] st Contact Info) Description 03/14/2024 11:45 AM MOTTLER OPERATOR Office Visit [facility] [phone] Marvin Mckeon MD Three [facility] [address] [place], [place] [phone] 03/20/2024 11:30 AM MOTTLER OPERATOR Office Visit [facility] Family Medicine - [place] [address] [place] [phone] Abiodun Segura II, MD [address] [place] [phone] documented as of this encounter Visit Diagnoses Not on filedocumented in this encounter Additional Health Concerns Assessment Noted Time PHQ-9 Depression Total Score: 0 10/09/19 21 10:02 AM CDT documented as of this encounter Care Teams Compounding Assistant Relationship Specialty Start Date End Date Shira Shi PA-C [address] [place] [address] PCP - General PHYSICIAN WEDDING PHOTOGRAPHER 10/01/20 11/17/20 documented as of this encounter
--- OUTSIDE RECORDS SUMMARY | 2024-03-02 22:30 | XMS_ITS | Encounter Summary ---
Author Organization [facility] Address [address] [place] [address]. [place], [place] [address] [place] [address] Care Team Providers Care Line Maintainer Section Name Role Phone Jarred Rod MD Primary Care Provider Unav ailable Shira Shi PA-C Primary Care Provider +1- [phone] Jarred Rod MD Primary Care Provider Unav ailable Colton SILVEIRA MD, Abiodun L Primary Care Provider Jarred Rod MD Primary Care Provider Unav ailable Encounter Details Date Type Department Care Team (Latest Contact Info) Description 07/14/2020 Scan HEALTH INFO SRVCS Scanned, Documents Social [...] COVID-19? No / Unsure 01/24/2021 11:10 AM GEOSPATIAL SCIENTIST documented as of this encounter Functional Status [...] st Contact Info) Description 03/14/2024 11:45 AM GEOSPATIAL SCIENTIST Office Visit [facility] [address] Marvin Mckeon MD Three [facility] [address] [place] [address] 03/20/2024 11:30 AM GEOSPATIAL SCIENTIST Office Visit [facility] Family Medicine - [place] [phone] Abiodun Segura II, MD [address] [place] [address] documented as of this encounter Visit Diagnoses Not on filedocumented in this encounter Care Teams Line Maintainer Section Relationship Specialty Start Date End Date Jarred Rod MD PCP - General FAMILY PRACTICE 07/21/15 09/30/20 Shira Shi PA-C [address] [place] [address] PCP - General PHYSICIAN RECYCLER 10/01/20 11/17/20 Jarred Rod MD [address] [place] [address] PCP - General FAMILY PRACTICE 11/18/20 12/05/20 Abiodun Segura II, MD [address] [place] [address] PCP - General FAMILY PRACTICE 12/06/20 01/16/21 Jarred Rod MD [address] [place] [address] PCP - General FAMILY PRACTICE 01/17/21 03/08/21 documented as of this encounter
--- OUTSIDE RECORDS SUMMARY | 2024-03-02 22:30 | XMS_ITS | Encounter Summary ---
Author Organization [facility] Address [address] [place] [address]. [place], [place] [address] [place] [address] Care Team Providers Care Negotiator Sales Name Role Phone Shira Shi PA-C Primary Care Provider +1- [phone] Reason for Visit * Reason Comments Ultrasound (SCAN) Encounter Details Date Type Department Care Team (Late st Contact Info) Description 10/22/2020 Scan HEALTH INFO SRVCS Scanned, Documents Ultrasound (SCAN) Social History Tobacco Use Types Packs/Day [...] st Contact Info) Description 03/14/2024 11:45 AM HOT AIR FURNACE INSTALLER AND REPAIRER Office Visit [facility] [phone] Marvin Mckeon MD Three [facility] [address] [place], [place] [phone] 03/20/2024 11:30 AM HOT AIR FURNACE INSTALLER AND REPAIRER Office Visit [facility] Family Medicine - [place] [address] [place] [phone] Abiodun Segura II, MD [address] [place], [place] [address] documented as of this encounter Procedures Procedure Name Priority Date/Time Associated Diagnosis Comments ULTRASOUND GENERIC (SCAN ORDER) 10/22/2020 ULTRASOUND GENERIC (SCAN ORDER) 10/22/2020 documented in this encounter Results * ULTRASOUND GENERIC (10/22/2020) Anatomical Region Laterality Modality Other 10/22/2020 Narrative 10/22/2020 Ordered by an unspecified provider. us Documents Scanned SCANNING Final Result * ULTRASOUND GENERIC (10/22/2020) Anatomical Region Laterality Modality Other 10/22/2020 Narrative 10/22/2020 Ordered by an unspecified provider. us Documents Scanned SCANNING Final Result documented in this encounter Visit Diagnoses Not on filedocumented in this encounter Additional Health Concerns Assessment Noted Time PHQ-9 Depression Total Score: 0 10/09/19 21 10:02 AM CDT documented as of this encounter Care Teams Negotiator Sales Relationship Specialty Start Date End Date Shira Shi PA-C [address] [place] [address] PCP - General PHYSICIAN LIFE UNDERWRITER 10/01/20 11/17/20 documented as of this encounter
--- OUTSIDE RECORDS SUMMARY | 2024-03-02 22:30 | XMS_ITS | Encounter Summary ---
Author Organization [facility] Address [address] [place] [address]. [place] [address] [place] [address] Care Team Providers Care Draw Frame Operator Name Role Phone Jarred Rod MD Primary Care Provider Unav ailable Reason for Visit * Reason Comments Follow Up ER follow up- Back p ain and bladder infection Encounter Details Date Type Department Care Team (Late st Contact Info) Description 09/17/2020 11:40 AM CDT Office Visit [facility] Family Medicine [facility] [address] [place] [phone] Yasmin Valenzuela II, MD [address] [place] [address] Follow Up (ER follow up- Back pain and bladder infection) Social History Tobacco [...] Sign Reading Time Taken Comments Blood Pressure 152/86 09/17/2020 11:30 AM CDT Pulse 77 09/17/2020 11:22 AM CDT Temperature 36.7 ??C (98.1 ??F) 09/17/2020 11:22 AM C DT Respiratory Rate - - Oxygen Saturation 97% 09/17/2020 11:22 AM CDT Inhaled Oxygen Concentration - - Weight 93 kg (205 lb) 09/17/2020 11:22 AM CDT Height - - Body Mass Index 33.09 09/11/2020 7:14 PM CDT documented in this [...] No 08/12/2019 3:00 AM CDT Shelby Martinez A, R N Active * Do you have difficulty dressing or bathing? Answer Date of Assessment Author Status Yes 08/12/2019 3:00 AM CDT AmoltyDevanteShelby A, R N Active * Because of a physical, mental, or emotional condition, do you have difficulty doing errands alone such as visiting a doctor's office or shopping? Answer Date of Assessment Author Status Yes 08/12/2019 3:00 AM CDT AmoltyDevanteShelby A, R N Active documented as of this encounter Mental Status * Because of a physical, mental, or emotional condition, do you have serious difficulty concentrating, remembering, or making decisions? Answer Entry Date Author Status No 08/12/2019 3:00 AM CDT Devante Martinezsha A, R N Active documented in this encounter Progress Notes * Yasmin Valenzuela II, MD - 09/17/2020 11:40 AM CDT Images from the original note were not included. [facility] FAMILY MEDICINE [address] [address] OFFICE FOLLOW UP NOTE Encounter Date: 09/17/2020 Chief Complaint: Follow Up (ER follow up- Back pain and bladder infection) History of Present Illness: 50-year-old female with history of diabetes, hypertension, hyperlipidemia, and recurrent UTIs who takes Macrobid after intercourse as prophylaxis was seen in the emergency department with low back pain and dysuria and diagnosed with UTI and started on Keflex. Patient has had persistent dysuria and low back pain since and is here for reevaluation and treatment recommendations. Last UTI prior to this was in July. She denies fevers but did have some chills at the beginning of this. Patient also has a history of right-sided hydronephrosis and renal calcifications with thinning of the renal cortexand has been followed by nephrology in the past. Review Of Systems: Pt denies any cp/sob/n/v/f/c/cruz All other Systems were reviewed and are negative. Patient Active Problem List Diagnosis ??? Osteomyelitis (CMS/HCC) ??? Cellulitis ??? Diabetic foot ulcer (CMS/HCC) ??? Abdominal pain ??? Hypercholesteremia ??? Hypertension ??? Nephrolithiasis ??? Type 2 diabetes mellitus (CMS/HCC) Past Medical History: Diagnosis Date ??? [...] Gatherings with Friends and Family: ??? Attends Restorationism Services: ??? Active Member of Clubs or Organizations: ??? Attends Club or Organization Meetings: ??? Marital Status: Intimate Partner Violence: ??? Fear of Current or Ex-Partner: ??? Emotionally Abused: ??? Physically Abused: ??? Sexually Abused: There is no immunization history on file for this patient. Current Outpatient Medications Medication Sig Dispense Refill ??? cephALEXin (KEFLEX) 500 MG capsule Take 1 capsule (500 mg total) by mouth 3 (three) times dailyfor 10 days. 30 capsule 0 ??? ciprofloxacin 750 MG tablet Take 1 tablet (750 mg total) by mouth 2 (two) times daily for 7 days. 14 tablet 0 ??? fluconazole (DIFLUCAN) 150 MG tablet Take [...] Take 40 mg by mouth nightly. ??? metoprolol tartrate 50 MG tablet Take 50 mg by mouth 2 (two) times a day. 3 ??? nitroglycerin 0.4 MG SL tablet [...] 7 days. INJECT ON SUNDAY 0 ??? cyclobenzaprine 5 MG tablet Take [...] 7 Day Supply 20 tablet 0 ??? metroNIDAZOLE (METROGEL VAGINAL) 0.75 % vaginal gel Place vaginally 2 (two) times daily for 7 days. 70 g 0 ??? nitrofurantoin 50 MG capsule Take 50 mg by mouth see administration instructions. Take 50mg thesame day or early the day after you have intercourse ??? traMADol 50 MG tablet Take 1 tablet (50 mg total) by mouth every 8 (eight) hours as needed. Indications: Acute Pain < 7 Day Supply 20 tablet 0 No current facility-administered medications for this visit. Allergies Allergen Reactions ??? Amoxicillin Rash ??? Penicillins Rash Objective: Filed Vitals: 09/17/20 1122 09/17/20 1130 BP: (!) 169/81 (!) 152/86 Pulse: 77 Temp: 98.1 ??F (36.7 ??C) TempSrc: Oral SpO2: 97% Weight: 93 kg (205 lb) Nursing note reviewed. Physical Exam Vitals [...] COLOR (U) LIGHT YELLOW TRANSPARENCY TURBID Specific [place] (U) 1.014 1.001 - 1.030 U PH [...] Patient originally seen at urgent care in [place]. Patient also reports vaginal discharge and right [...] importance of compliance with treatment. Assessment: 1. Acute cystitis without hematuria ciprofloxacin 750 MG tablet 2. Candidiasis of genitalia in female fluconazole (DIFLUCAN) 150 MG tablet 3. Type 2 diabetes mellitus with diabetic neuropathic arthropathy, with long- term current use of insulin ([facility]) 4. Primary hypertension Plan: Orders Placed This Encounter Medications ??? ciprofloxacin 750 MG tablet ??? fluconazole (DIFLUCAN) 150 MG tablet 1. Acute cystitis without hematuria Patient has persistent symptoms despite treatment with cephalexin. We will treat patient with ciprofloxacin 750 mg twice a day for 7 days. Follow-up with me in 1 week for reevaluation and further treatment recommendations. - ciprofloxacin 750 MG tablet; Take 1 tablet (750 mg total) by mouth 2 (two) times daily for 7 days. Dispense: 14 tablet; Refill: 0 2. Candidiasis of genitalia in female Patient known to get yeast infections with antibiotic use. Will prescribe Diflucan tablet to be taken after course of ciprofloxacin. - fluconazole (DIFLUCAN) 150 MG tablet; Take 1 tablet (150 mg total) by mouth once for 1 dose. Dispense: 1 tablet; Refill: 0 3. Type 2 diabetes mellitus with diabetic neuropathic arthropathy, with long- term current use of insulin ([facility]) After reviewing lab work from the emergency department it appears that her diabetes is not at adequate control. We will begin to readdress this at her follow-up visit. 4. Primary hypertension Blood pressure is not at goal today. We will recheck blood pressure at follow-up and recommend medication recommendations if needed. There are no discontinued medications. YASMIN VALENZUELA MD 09/17/2020 documented in this encounter Plan of Treatment Upcoming Encounters Date Type Department Care Team (Late st Contact Info) Description 03/14/2024 11:[address] Office Visit [facility] [phone] Marvin Mckeon MD [facility] [address] [place] [address] 03/20/2024 11:[address] Office Visit [facility] Family Medicine - [place] [address] [place] [phone] Yasmin Valenzuela II, MD [address] [place], [place] [phone] documented as of this encounter Visit Diagnoses Diagnosis Acute cystitis without hematuria- Primary Acute cystitis Candidiasis of genitalia in female Candidiasis of vulva and vagina Type 2 diabetes mellitus with diabetic neuropathic arthropathy, with long-term current use of insulin ([facility]) Primary hypertension Unspecified essential hypertension documented in this encounter Additional Health Concerns Assessment Noted Time PHQ-9 Depression Total Score: 0 09/18/19 21 11:35 AM CDT documented as of this encounter Care Teams Draw Frame Operator Relationship Specialty Start Date End Date Jarred Rod MD PCP - General FAMILY PRACTICE 07/21/15 09/30/20 documented as of this encounter
--- OUTSIDE RECORDS SUMMARY | 2024-03-02 22:30 | XMS_ITS | Encounter Summary ---
Author Organization [facility] Address [address] [place] [address]. [place] [address] [place] [address] Care Team Providers Care Commission Agent Livestock Name Role Phone Jarred Rod MD Primary Care Provider Unav ailable Encounter Details Date Type Department Care Team (Latest Contact Info) Description 07/29/2020 Travel Social History Tobacco Use Types Packs/Day [...] Contact Info) Description 03/14/2024 11:45 AM IN HOME SALES CONSULTANT Office Visit [facility] [phone] Marvin Mckeon MD [facility] [address] [place] [address] 03/20/2024 11:30 AM IN HOME SALES CONSULTANT Office Visit [facility] Family Medicine - [address] [phone] Abiodun Segura II, MD [address] [place] [address] documented as of this encounter Visit Diagnoses Not on filedocumented in this encounter Care Teams Commission Agent Livestock Relationship Specialty Start Date End Date Jarred Rod MD PCP - General FAMILY PRACTICE 07/21/15 09/30/20 documented as of this encounter
--- OUTSIDE RECORDS SUMMARY | 2024-03-02 22:30 | XMS_ITS | Encounter Summary ---
Author Organization [facility] Address [address] [place] [address]. [place], [place] [phone] [place] [address] Care Team Providers Care Weaver [employer] Name Role Phone Colton SILVEIRA MD, Abiodun Ruhsing Primary Care Provider Encounter Details Date Type Department Care Team (Latest Contact Info) Description 12/30/2020 Travel Social History Tobacco Use Types Packs/Day [...] COVID-19? No / Unsure 12/30/2020 10:03 AM CYBER SECURITY SYSTEMS ENGINEER documented as of this encounter Functional [...] Contact Info) Description 03/14/2024 11:45 AM CYBER SECURITY SYSTEMS ENGINEER Office Visit [facility] [phone] Marvin Mckeon MD [facility] [address] [place] [phone] 03/20/2024 11:30 AM CYBER SECURITY SYSTEMS ENGINEER Office Visit [facility] Family Medicine - [place] [address] [place] [phone] Abiodun Segura II, MD [address] [place] [phone] documented as of this encounter Visit Diagnoses Not on filedocumented in this encounter Additional Health Concerns Assessment Noted Time PHQ-9 Depression Total Score: 0 10/09/19 21 10:02 AM CDT documented as of this encounter Care Teams Weaver [employer] Relationship Specialty Start Date End Date Abiodun Segura II, MD [address] [place] [address] PCP - General FAMILY PRACTICE 12/06/20 01/16/21 documented as of this encounter
--- OUTSIDE RECORDS SUMMARY | 2024-03-02 22:30 | XMS_ITS | Encounter Summary ---
Author Organization [facility] Address [address] [place] [address]. [place], [place] [phone] [place] [address] Care Team Providers Care Pipe Fitter Ammonia Name Role Phone Jarred Rod MD Primary Care Provider Unav ailable Shira Shi PA-C Primary Care Provider [phone] Jarred Rod MD Primary Care Provider Unav ailable Colton SILVEIRA MD, Abiodun L Primary Care Provider Jarred Rod MD Primary Care Provider Unav ailable Encounter Details Date Type Department Care Team (Latest Contact Info) Description 03/24/2020 Scan HEALTH INFO SRVCS Scanned, Documents Social [...] COVID-19? No / Unsure 01/24/2021 11:10 AM CHROMIUM PLATER documented as of this encounter Functional Status [...] st Contact Info) Description 03/14/2024 11:45 AM CHROMIUM PLATER Office Visit [facility] [phone] Marvin Mckeon MD [facility] [address] [place] [address] 03/20/2024 11:30 AM CHROMIUM PLATER Office Visit [facility] Family Medicine - [place] [phone] Abiodun Segura II, MD [address] [place] [address] documented as of this encounter Visit Diagnoses Not on filedocumented in this encounter Care Teams Pipe Fitter Ammonia Relationship Specialty Start Date End Date Jarred Rod MD PCP - General FAMILY PRACTICE 07/21/15 09/30/20 Shira Shi PA-C [address] [place] [address] PCP - General PHYSICIAN SUPERVISOR ASSEMBLY STOCK 10/01/20 11/17/20 Jarred Rod MD [address] [place] [id number] PCP - General FAMILY PRACTICE 11/18/20 12/05/20 Abiodun Segura II, MD [address] [place] [phone] PCP - General FAMILY PRACTICE 12/06/20 01/16/21 Jarred Rod MD [address] [place] [address] PCP - General FAMILY PRACTICE 01/17/21 03/08/21 documented as of this encounter
--- OUTSIDE RECORDS SUMMARY | 2024-03-02 22:30 | XMS_ITS | Encounter Summary ---
Author Organization [facility] Address [address] [place] [address]. [place] [address] [place] [address] Care Team Providers Care Cement Fittings Maker Name Role Phone Jarred Rod MD Primary Care Provider Unav ailable Encounter Details Date Type Department Care Team (Latest Contact Info) Description 01/17/2021 11:26 AM METAL SPINNER - 01/17/2021 11:59 PM [facility] Hospital Encounter [facility] [place] [address] [place] [address] [place], [place] [id number] Discharge Disposition: Home or Self Care (Routine [...] COVID-19? No / Unsure 01/17/2021 11:26 AM METAL SPINNER documented as of this encounter Functional Status [...] arthropathy, with long-term current use of insulin ([facility]) USE 1 SYRINGE SUBCUTANEOUSLY TWICE DAILY 100 [...] arthropathy, with long-term current use of insulin ([facility]) INJECT 1.5 MG SUBCUTANEOUSLY ONCE EVERY 7 DAYS 4 mL 1 1 03/21/19 22 documented as of this encounter Plan of Treatment Upcoming Encounters Date Type Department Care Team (Late st Contact Info) Description 03/14/2024 11:45 AM METAL SPINNER Office Visit [facility] [phone] Marvin Mckeon MD [facility] [address] [place] [address] 03/20/2024 11:30 AM METAL SPINNER Office Visit [facility] Family Medicine - [place] [address] [place] [phone] Abiodun Segura II, MD [address] [place] [address] documented as of this encounter Procedures Procedure Name Priority Date/Time Associated Diagnosis Comments XR FOOT RT 3V Routine 01/17/2021 11:57 AM METAL SPINNER Atherosclerosis XR FOOT LT 3V Routine 01/17/2021 11:57 AM METAL SPINNER Atherosclerosis XR ANKLE RT M3V Routine 01/17/2021 11:57 AM METAL SPINNER Atherosclerosis XR ANKLE LT M3V Routine 01/17/2021 11:57 AM METAL SPINNER Atherosclerosis documented in this encounter Results * XR ANKLE LT M3V (01/17/2021 11:57 AM METAL SPINNER) Anatomical Region Laterality Modality Ankle Radiographic Shelli ging 01/17/2021 12:3 9 PM METAL SPINNER Impressions 01/17/2021 12:42 PM METAL SPINNER IMPRESSION: 1. ?? No definite acute erosion in either foot to indicate osteomyelitis, but this is difficult to exclude with radiographs alone. ??If clinically indicated, consider MRI follow-up. 2. ??Prior second and third digit resection of the left foot. ??Chronic erosion of the second metatarsal head. 3. ??Bilateral chronic plantar fasciitis. Referred By: ?? Interpreted By: Isaías Jones MD, 01/17/2021 12:39 PM Narrative 01/17/2021 12:42 PM METAL SPINNER EXAMINATION: Bilateral foot and ankle [id number], [id number], [id number] EXAM DATE: 01/17/2021 11:34 AM REASON FOR EXAM: ??Type 2 Diabetes Mellitus with Foot Ulcer ?? Pain and swelling of the right foot and ankle and pain and swelling of the left foot and ankle, diabetes mellitus. ??Concern for osteomyelitis. COMPARISON: 01/25/2017 TECHNIQUE: 3 views of the right foot and 3 views left foot and 3 views of the right ankle and 3 views of the left ankle FINDINGS: Right ankle: Mild soft tissue swelling. ??No osteochondral lesion of the talus. ??Findings concerning for chronic plantar fasciitis. ??No erosive pathology or fracture. Right foot: Healed fracture with associated deformity of the fifth metatarsal bone. ??No erosive pathology to indicate osteomyelitis. ??No evidence of fracture. Left ankle: Mild soft tissue swelling. ??Hypertrophic bone of the medial malleolus suggests old healed injury. ??No erosive pathology indicated osteomyelitis. ??Findings concerning for chronic plantar fasciitis. Left foot: Prior resection of the second and third digits at the proximal phalanges. ??Chronic appearing erosion of the second metatarsal head, no definite acute erosion, difficult to fully exclude osteomyelitis, consider MRI follow-up if clinically indicated. ??Bone spur suggestive of chronic plantar fasciitis. ??No evidence of fracture. Procedure Note Isaías Jones MD - 01/17/2021 EXAMINATION: Bilateral foot and ankle [id number], [id number], [id number] EXAM DATE: 01/17/2021 11:34 AM REASON FOR EXAM: Type 2 Diabetes Mellitus with Foot Ulcer Pain and swelling of the right foot and ankle and pain and swelling ofthe left foot and ankle, diabetes mellitus. Concern for osteomyelitis. COMPARISON: 01/25/2017 TECHNIQUE: 3 views of the right foot and 3 views left foot and 3 views ofthe right ankle and 3 views of the left ankle FINDINGS: Right ankle: Mild soft tissue swelling. No osteochondral lesion of thetalus. Findings concerning for chronic plantar fasciitis. No erosivepathology or fracture. Right foot: Healed fracture with associated deformity of the fifthmetatarsal bone. No erosive pathology to indicate osteomyelitis. Noevidence of fracture. Left ankle: Mild soft tissue swelling. Hypertrophic bone of the medialmalleolus suggests old healed injury. No erosive pathology indicatedosteomyelitis. Findings concerning for chronic plantar fasciitis. Left foot: Prior resection of the second and third digits at the proximalphalanges. Chronic appearing erosion of the second metatarsal head, nodefinite acute erosion, difficult to fully exclude osteomyelitis, considerMRI follow-up if clinically indicated. Bone spur suggestive of chronicplantar fasciitis. No evidence of fracture. IMPRESSION: 1. No definite acute erosion in either foot to indicate osteomyelitis,but this is difficult to exclude with radiographs alone. If clinicallyindicated, consider MRI follow-up. 2. Prior second and third digit resection of the left foot. Chronicerosion of the second metatarsal head. 3. Bilateral chronic plantar fasciitis. Referred By: Interpreted By: Isaías Jones MD, 01/17/2021 12:39 PM us Victoriano Langston MD [facility] Final Result * XR ANKLE RT M3V (01/17/2021 11:57 AM METAL SPINNER) Anatomical Region Laterality Modality Ankle Radiographic Shelli ging 01/17/2021 12:3 9 PM METAL SPINNER Impressions 01/17/2021 12:42 PM METAL SPINNER IMPRESSION: 1. ?? No definite acute erosion in either foot to indicate osteomyelitis, but this is difficult to exclude with radiographs alone. ??If clinically indicated, consider MRI follow-up. 2. ??Prior second and third digit resection of the left foot. ??Chronic erosion of the second metatarsal head. 3. ??Bilateral chronic plantar fasciitis. Referred By: ?? Interpreted By: Isaías Jones MD, 01/17/2021 12:39 PM Narrative 01/17/2021 12:42 PM METAL SPINNER EXAMINATION: Bilateral foot and ankle [id number], [id number], [id number] EXAM DATE: 01/17/2021 11:34 AM REASON FOR EXAM: ??Type 2 Diabetes Mellitus with Foot Ulcer ?? Pain and swelling of the right foot and ankle and pain and swelling of the left foot and ankle, diabetes mellitus. ??Concern for osteomyelitis. COMPARISON: 01/25/2017 TECHNIQUE: 3 views of the right foot and 3 views left foot and 3 views of the right ankle and 3 views of the left ankle FINDINGS: Right ankle: Mild soft tissue swelling. ??No osteochondral lesion of the talus. ??Findings concerning for chronic plantar fasciitis. ??No erosive pathology or fracture. Right foot: Healed fracture with associated deformity of the fifth metatarsal bone. ??No erosive pathology to indicate osteomyelitis. ??No evidence of fracture. Left ankle: Mild soft tissue swelling. ??Hypertrophic bone of the medial malleolus suggests old healed injury. ??No erosive pathology indicated osteomyelitis. ??Findings concerning for chronic plantar fasciitis. Left foot: Prior resection of the second and third digits at the proximal phalanges. ??Chronic appearing erosion of the second metatarsal head, no definite acute erosion, difficult to fully exclude osteomyelitis, consider MRI follow-up if clinically indicated. ??Bone spur suggestive of chronic plantar fasciitis. ??No evidence of fracture. Procedure Note Isaías Jones MD - 01/17/2021 EXAMINATION: Bilateral foot and ankle [id number], [id number], [id number] EXAM DATE: 01/17/2021 11:34 AM REASON FOR EXAM: Type 2 Diabetes Mellitus with Foot Ulcer Pain and swelling of the right foot and ankle and pain and swelling ofthe left foot and ankle, diabetes mellitus. Concern for osteomyelitis. COMPARISON: 01/25/2017 TECHNIQUE: 3 views of the right foot and 3 views left foot and 3 views ofthe right ankle and 3 views of the left ankle FINDINGS: Right ankle: Mild soft tissue swelling. No osteochondral lesion of thetalus. Findings concerning for chronic plantar fasciitis. No erosivepathology or fracture. Right foot: Healed fracture with associated deformity of the fifthmetatarsal bone. No erosive pathology to indicate osteomyelitis. Noevidence of fracture. Left ankle: Mild soft tissue swelling. Hypertrophic bone of the medialmalleolus suggests old healed injury. No erosive pathology indicatedosteomyelitis. Findings concerning for chronic plantar fasciitis. Left foot: Prior resection of the second and third digits at the proximalphalanges. Chronic appearing erosion of the second metatarsal head, nodefinite acute erosion, difficult to fully exclude osteomyelitis, considerMRI follow-up if clinically indicated. Bone spur suggestive of chronicplantar fasciitis. No evidence of fracture. IMPRESSION: 1. No definite acute erosion in either foot to indicate osteomyelitis,but this is difficult to exclude with radiographs alone. If clinicallyindicated, consider MRI follow-up. 2. Prior second and third digit resection of the left foot. Chronicerosion of the second metatarsal head. 3. Bilateral chronic plantar fasciitis. Referred By: Interpreted By: Isaías Jones MD, 01/17/2021 12:39 PM us Victoriano Langston MD GENERAL IMAGING Final Result * XR FOOT LT 3V (01/17/2021 11:57 AM METAL SPINNER) Anatomical Region Laterality Modality Foot Radiographic Shelli ging 01/17/2021 12:3 9 PM METAL SPINNER Impressions 01/17/2021 12:42 PM METAL SPINNER IMPRESSION: 1. ?? No definite acute erosion in either foot to indicate osteomyelitis, but this is difficult to exclude with radiographs alone. ??If clinically indicated, consider MRI follow-up. 2. ??Prior second and third digit resection of the left foot. ??Chronic erosion of the second metatarsal head. 3. ??Bilateral chronic plantar fasciitis. Referred By: ?? Interpreted By: Isaías Jones MD, 01/17/2021 12:39 PM Narrative 01/17/2021 12:42 PM METAL SPINNER EXAMINATION: Bilateral foot and ankle [id number], [id number], [id number] EXAM DATE: 01/17/2021 11:34 AM REASON FOR EXAM: ??Type 2 Diabetes Mellitus with Foot Ulcer ?? Pain and swelling of the right foot and ankle and pain and swelling of the left foot and ankle, diabetes mellitus. ??Concern for osteomyelitis. COMPARISON: 01/25/2017 TECHNIQUE: 3 views of the right foot and 3 views left foot and 3 views of the right ankle and 3 views of the left ankle FINDINGS: Right ankle: Mild soft tissue swelling. ??No osteochondral lesion of the talus. ??Findings concerning for chronic plantar fasciitis. ??No erosive pathology or fracture. Right foot: Healed fracture with associated deformity of the fifth metatarsal bone. ??No erosive pathology to indicate osteomyelitis. ??No evidence of fracture. Left ankle: Mild soft tissue swelling. ??Hypertrophic bone of the medial malleolus suggests old healed injury. ??No erosive pathology indicated osteomyelitis. ??Findings concerning for chronic plantar fasciitis. Left foot: Prior resection of the second and third digits at the proximal phalanges. ??Chronic appearing erosion of the second metatarsal head, no definite acute erosion, difficult to fully exclude osteomyelitis, consider MRI follow-up if clinically indicated. ??Bone spur suggestive of chronic plantar fasciitis. ??No evidence of fracture. Procedure Note Isaías Jones MD - 01/17/2021 EXAMINATION: Bilateral foot and ankle [id number], [id number], [id number] EXAM DATE: 01/17/2021 11:34 AM REASON FOR EXAM: Type 2 Diabetes Mellitus with Foot Ulcer Pain and swelling of the right foot and ankle and pain and swelling ofthe left foot and ankle, diabetes mellitus. Concern for osteomyelitis. COMPARISON: 01/25/2017 TECHNIQUE: 3 views of the right foot and 3 views left foot and 3 views ofthe right ankle and 3 views of the left ankle FINDINGS: Right ankle: Mild soft tissue swelling. No osteochondral lesion of thetalus. Findings concerning for chronic plantar fasciitis. No erosivepathology or fracture. Right foot: Healed fracture with associated deformity of the fifthmetatarsal bone. No erosive pathology to indicate osteomyelitis. Noevidence of fracture. Left ankle: Mild soft tissue swelling. Hypertrophic bone of the medialmalleolus suggests old healed injury. No erosive pathology indicatedosteomyelitis. Findings concerning for chronic plantar fasciitis. Left foot: Prior resection of the second and third digits at the proximalphalanges. Chronic appearing erosion of the second metatarsal head, nodefinite acute erosion, difficult to fully exclude osteomyelitis, considerMRI follow-up if clinically indicated. Bone spur suggestive of chronicplantar fasciitis. No evidence of fracture. IMPRESSION: 1. No definite acute erosion in either foot to indicate osteomyelitis,but this is difficult to exclude with radiographs alone. If clinicallyindicated, consider MRI follow-up. 2. Prior second and third digit resection of the left foot. Chronicerosion of the second metatarsal head. 3. Bilateral chronic plantar fasciitis. Referred By: Interpreted By: Isaías Jones MD, 01/17/2021 12:39 PM us Victoriano Langston MD GENERAL IMAGING Final Result * XR FOOT RT 3V (01/17/2021 11:57 AM METAL SPINNER) Anatomical Region Laterality Modality Foot Radiographic Shelli ging 01/17/2021 12:3 9 PM METAL SPINNER Impressions 01/17/2021 12:42 PM METAL SPINNER IMPRESSION: 1. ?? No definite acute erosion in either foot to indicate osteomyelitis, but this is difficult to exclude with radiographs alone. ??If clinically indicated, consider MRI follow-up. 2. ??Prior second and third digit resection of the left foot. ??Chronic erosion of the second metatarsal head. 3. ??Bilateral chronic plantar fasciitis. Referred By: ?? Interpreted By: Isaías Jones MD, 01/17/2021 12:39 PM Narrative 01/17/2021 12:42 PM METAL SPINNER EXAMINATION: Bilateral foot and ankle [id number], [id number], [id number] EXAM DATE: 01/17/2021 11:34 AM REASON FOR EXAM: ??Type 2 Diabetes Mellitus with Foot Ulcer ?? Pain and swelling of the right foot and ankle and pain and swelling of the left foot and ankle, diabetes mellitus. ??Concern for osteomyelitis. COMPARISON: 01/25/2017 TECHNIQUE: 3 views of the right foot and 3 views left foot and 3 views of the right ankle and 3 views of the left ankle FINDINGS: Right ankle: Mild soft tissue swelling. ??No osteochondral lesion of the talus. ??Findings concerning for chronic plantar fasciitis. ??No erosive pathology or fracture. Right foot: Healed fracture with associated deformity of the fifth metatarsal bone. ??No erosive pathology to indicate osteomyelitis. ??No evidence of fracture. Left ankle: Mild soft tissue swelling. ??Hypertrophic bone of the medial malleolus suggests old healed injury. ??No erosive pathology indicated osteomyelitis. ??Findings concerning for chronic plantar fasciitis. Left foot: Prior resection of the second and third digits at the proximal phalanges. ??Chronic appearing erosion of the second metatarsal head, no definite acute erosion, difficult to fully exclude osteomyelitis, consider MRI follow-up if clinically indicated. ??Bone spur suggestive of chronic plantar fasciitis. ??No evidence of fracture. Procedure Note Isaías Jones MD - 01/17/2021 EXAMINATION: Bilateral foot and ankle [id number], [id number], [id number] EXAM DATE: 01/17/2021 11:34 AM REASON FOR EXAM: Type 2 Diabetes Mellitus with Foot Ulcer Pain and swelling of the right foot and ankle and pain and swelling ofthe left foot and ankle, diabetes mellitus. Concern for osteomyelitis. COMPARISON: 01/25/2017 TECHNIQUE: 3 views of the right foot and 3 views left foot and 3 views ofthe right ankle and 3 views of the left ankle FINDINGS: Right ankle: Mild soft tissue swelling. No osteochondral lesion of thetalus. Findings concerning for chronic plantar fasciitis. No erosivepathology or fracture. Right foot: Healed fracture with associated deformity of the fifthmetatarsal bone. No erosive pathology to indicate osteomyelitis. Noevidence of fracture. Left ankle: Mild soft tissue swelling. Hypertrophic bone of the medialmalleolus suggests old healed injury. No erosive pathology indicatedosteomyelitis. Findings concerning for chronic plantar fasciitis. Left foot: Prior resection of the second and third digits at the proximalphalanges. Chronic appearing erosion of the second metatarsal head, nodefinite acute erosion, difficult to fully exclude osteomyelitis, considerMRI follow-up if clinically indicated. Bone spur suggestive of chronicplantar fasciitis. No evidence of fracture. IMPRESSION: 1. No definite acute erosion in either foot to indicate osteomyelitis,but this is difficult to exclude with radiographs alone. If clinicallyindicated, consider MRI follow-up. 2. Prior second and third digit resection of the left foot. Chronicerosion of the second metatarsal head. 3. Bilateral chronic plantar fasciitis. Referred By: Interpreted By: Isaías Jones MD, 01/17/2021 12:39 PM us Victoriano Langston MD GENERAL IMAGING Final Result documented in this encounter Visit Diagnoses Diagnosis Atherosclerosis Generalized and unspecified atherosclerosis documented in this encounter Additional Health Concerns Assessment Noted Time PHQ-9 Depression Total Score: 0 10/09/19 21 10:02 AM CDT documented as of this encounter Care Teams Cement Fittings Maker Relationship Specialty Start Date End Date Jarred Rod MD PCP - General FAMILY PRACTICE 01/17/21 03/08/21 documented as of this encounter
--- OUTSIDE RECORDS SUMMARY | 2024-03-02 22:30 | XMS_ITS | Encounter Summary ---
Author Organization [facility] Address [address] [place] [address]. [place], [place] [address] [place] [address] Care Team Providers Care International Logistics Coordinator Name Role Phone Jarred Rod MD Primary Care Provider Unav Shira Asencio PA-C Primary Care Provider [phone] Encounter Details Date Type Department Care Team (Latest Contact Info) Description 09/11/2020 Scan HEALTH INFO [facility] Scanned, Documents Social [...] st Contact Info) Description 03/14/2024 11:45 AM WEAVER AXMINSTER Office Visit [facility] [phone] Marvin Mckeon MD [facility] [address] [place], [place] [address] 03/20/2024 11:30 AM WEAVER AXMINSTER Office Visit [facility] Family Medicine - [place] [address] [place] [phone] Abiodun Segura II, MD [address] [place], [place] [id number] documented as of this encounter Visit Diagnoses Not on filedocumented in this encounter Care Teams International Logistics Coordinator Relationship Specialty Start Date End Date Jarred Rod MD PCP - General FAMILY PRACTICE 07/21/15 09/30/20 Shira Shi PA-C [address] [place] [id number] PCP - General PHYSICIAN PLANER SETUP OPERATOR 10/01/20 11/17/20 documented as of this encounter
--- OUTSIDE RECORDS SUMMARY | 2024-03-02 22:31 | XMS_ITS | Encounter Summary ---
Author Organization [facility] Address [address] [place] [address]. [place] [address] [place] [address] Care Team Providers Care Card Scraper Name Role Phone Jarred Fernández MD Primary Care Provider Unav ailable Reason for Visit * Auth/Cert Specialty Diagnoses / Procedures Referred By Lyla chaney Referred To Contact Diagnoses POSTERIOR NECK MASS Procedures EXCISION POSTERIOR NECK MASS Referral ID Status Reason Start Date Expiration Date Visits Re quested Visits Authorized [id number] 1 1 Encounter Details Date Type Department Care Team (Late st Contact Info) Description 11/05/2019 1:12 PM CDT - 11/05/2019 2:26 PM CDT Surgery [facility] OR [facility] [id number] Edson Chappell MD [address] [place] [phone] EXCISION POSTERIOR NECK MASS Surgery Details Date/Time Status Location OR Service Patient Class Case Class Case Type Trauma Case? 11/05/2019 1:12 PM Posted [facility] OR OR 7 General Short Stay/Outpati ent Surgery E - Elective No Panel 1 Procedure LRB Anes Op Region Wound Class Comments EXCISION POSTERIOR NECK MASS N/A Monitor Anesthesia Care Clean Surgeon Surgeon Role Service Panel Edson Chappell MD Primary General 1 Case Notes SCHED WITH JAY ON 10/20/19 [facility] PHONE ASSESS documented in this encounter Social History Tobacco [...] have Coronavirus / COVID-19? No / Unsure 11/05/2019 9:18 AM CDT documented as of this encounter Last Filed Vital Signs Vital Sign Reading Time Taken Comments Blood Pressure 168/78 11/05/2019 2:21 PM CDT Pulse 81 11/05/2019 2:21 PM CDT Temperature 36.3 ??C (97.3 ??F) 11/05/2019 2:21 PM CD T Respiratory Rate 14 11/05/2019 2:21 PM CDT Oxygen Saturation 100% 11/05/2019 2:21 PM CDT Inhaled Oxygen Concentration - - Weight 90.2 kg (198 lb 13.7 oz) 11/05/2019 9:57 AM CDT Height 167.6 cm (5' 6 ) 11/05/2019 9:57 AM CDT Body Mass Index 32.1 11/05/2019 9:57 AM CDT documented in this encounter Functional [...] this encounter Discharge Instructions * Discharge Instructions* Sofy Pagan RN - 11/05/2019 3:40 PM CDT DERMABOND/MEDICAL GLUE INSTRUCTIONS Ok to shower tomorrow Keep incision dry. No tub bathes, hot tubs, or swimming. No ointments on incision. Let glue flake off on its own, do not pick at glue. May use ice pack as needed in 20 minute intervals, 20 minutes on, 20 minutes off. Be sure to use a barrier between skin and ice pack. Because you had anesthesia, we suggest these things: -Avoid greasy, fried or spicy foods for today -Take medication with food -Take an over the counter stool softener if needed for constipation while taking pain medication -Have a responsible adult stay with you the rest of today and overnight -No alcohol, driving, making major decision or operating machinery for 24 hours or while taking pain medication If you have chest pain, shortness of breath, calf pain, excessive bleeding or drainage, if you cannot hold down anything to eat or drink, or if you cannot urinate, please call 911 or go to the nearest emergency room. If you have fever, pain not controlled by your medication, signs of infection such as redness or discharge or swelling at the site, or any other questions or concerns, please call your surgeon. * Attachments The following attachments cannot be sent through Care Everywhere. * Hydrocodone and Acetaminophen, ADULT (Guinean) * General Anesthesia Discharge Instructions (Guinean) * Surgical Wound Discharge Instructions (Guinean) documented in this encounter Medications at Time [...] sugar numbers. 1 vial 1 02/08/2017 2 hydrochlorothiaz shalini 25 MG tablet Take 25 mg by mouth nightly. 1 HYDROcodone-acet aminophen 5-325 MG tabletIndication s:Acute Pain < 7 Day Supply Take 1-2 tablets by mouth every 6 (six) hours as needed for Pain. Indications: Acute Pain < 7 Day Supply For Moderate Pain 10 tablet 11/05/2019 1 lisinopril 40 MG tablet Take 40 mg by mouth nightly. 11/03/2016 2 metoprolol tartrate 50 MG tablet Take 50 mg by mouth 2 (two) times a day. 3 06/14/2018 1 simvastatin 40 MG tablet Take 40 mg by mouth nightly at bedtime. 11/03/2016 2 TRULICITY 1.5 MG/0.5ML Solution Pen-injector Inject 1.5 mg into the skin every 7 days. INJECT ON SUNDAY 0 10/07/2018 1 documented as of this encounter H&P Notes * Edson Chappell MD - 11/05/2019 1:02 PM CDT General Surgery History & Physical-[facility] Lena Youngblood 49-year-old female Date of Service: 11/05/2019 CHIEF COMPLAINT: Lump on my neck HPI: Patient is a 5 foot 6 inch 90.2 kg 49-year-old female who has had a painful mass in the left posterior neck that ruptured spontaneously several weeks ago and she presents for its definitive removal. It likely represents a sebaceous cyst. It was lanced once previously and she has a small scar in the area. PMH: Past Medical History: Diagnosis Date ??? Arthritis ??? Charcot foot due to diabetes mellitus (CMS/HCC) LEFT FOOT ??? Diabetes mellitus (CMS/HCC) ??? Diabetic neuropathy (CMS/HCC) ??? Hypertension ??? 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 UTI (urinary tract infection) ??? Vision decreased blind right eye, poor vision left eye PSH: Past Surgical History: Procedure Laterality Date ??? 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 BLADDER SURGERY ??? EYE SURGERY ??? HYSTERECTOMY 2004, 2019 hysterectomy, cervical surgery ??? RETINAL DETACHMENT SURGERY Right ALL: Allergies Allergen Reactions ??? Amoxicillin Rash ??? Penicillins Rash MEDS: Current: ??? BUpivacaine-EPINEPHrine PF ??? vancomycin 1,250 mg Intravenous Dispute Specialist to OR Prior to Admission medications Medication Sig Start Date End Date Taking? Authorizing Provider HUMALOG MIX 75/25 (75-25) 100 UNIT/ML Suspension Take 55 units in AM and 50 units PM, this should be titrated depending on your blood sugar numbers. Patient taking differently: Inject 55-65 Units into the skin see administration instructions. Take 65 units in AM and 55 units PM, this should be titrated depending on your blood sugar numbers. 02/08/17 Yes Imani Soria MD hydrochlorothiazide 25 MG tablet Take 25 mg by mouth nightly. Yes Doc Abstract lisinopril 40 MG tablet Take 40 mg by mouth nightly. 11/03/16 Yes Doc Abstract metoprolol tartrate 50 MG tablet Take 50 mg by mouth 2 (two) times a day. 06/14/18 Yes Doc Abstract simvastatin 40 MG tablet Take 40 mg by mouth nightly at bedtime. 11/03/16 Yes Doc Abstract TRULICITY 1.5 MG/0.5ML Solution Pen-injector Inject 1.5 mg into the skin every 7 days. INJECT ON Sunday10/07/18 Yes Doc Abstract cyclobenzaprine 5 MG tablet TAKE 1 TABLET BY MOUTH THREE TIMES DAILY NEEDED FOR MUSCLE SPASM 09/22/19 Doc Abstract docusate sodium 100 MG capsule Take 1 capsule (100 mg total) by mouth 2 (two) times daily. Patient taking differently: Take 100 mg by mouth 2 (two) times daily as needed. 05/01/19 Kvng Lewis MD Social History Socioeconomic History ??? Marital status: Spouse name: Not on file ??? Number of children: Not on file ??? Years of education: Not on file ??? Highest education level: Not on file Occupational History ??? Not on file Social Needs ??? Financial resource strain: Not on file ??? Food insecurity: Worry: Not on file Inability: Not on file ??? Transportation needs: Medical: Not on file Non-medical: Not on file Tobacco Use ??? Smoking status: Never Smoker ??? Smokeless tobacco: Never Used Substance and Sexual Activity ??? Alcohol use: No ??? Drug use: No ??? Sexual activity: Not on file Lifestyle ??? Physical activity: Days per week: Not on file Minutes per session: Not on file ??? Stress: Not on file Relationships ??? Social connections: Talks on phone: Not on file Gets together: Not on file Attends judaism service: Not on file Active member of club or organization: Not on file Attends meetings of clubs or organizations: Not on file Relationship status: Not on file ??? Intimate partner violence: Fear of current or ex partner: Not on file Emotionally abused: Not on file Physically abused: Not on file Forced sexual activity: Not on file Other Topics Concern [...] Not Asked Social History Narrative lives with Family History Problem Relation Name Age of Onset ??? Diabetes Mother ??? Hypertension Mother ??? Heart Attack Father ??? Hypertension Father ??? Stroke Sister ??? Hypertension Sister REVIEW OF SYSTEMS: 12 system review is negative aside from that mentioned in the HPI and PMH/PSH. PHYSICAL EXAM: Patient Vitals for the past 24 hrs: BP Temp Temp src Pulse Resp SpO2 Height Weight 11/05/19 0957 (!) 147/95 98 ??F (36.7 ??C) Oral 66 16 98 % 5' 6 (1.676 m) 90.2 kg (198 lb 13.7 oz) SKIN: Palpable mass left posterior neck likely representing a recurrent sebaceous cyst HEENT: NC/AT, PERRLA, EOMI, Neck Supple CHEST: CTA HEART: RRR ABDOMEN: Soft, NT/ND, no masses or hernias EXT: WNL, No clubbing, cyanosis or edema NEURO: No Focal Deficit, CN II-XII intact LYMPHATICS: No palpable lymphadenopathy BREAST: Deferred RECTAL: Deferred LABS: I reviewed the recent laboratories and pertinent values were noted. No results for input(s): WBC, RBC, HGB, HCT, NA, K, CL, CO2, AGAP, BUN, CR, BUNCREATININ, GFRNON, GFR, GLU, CA, TP, ALB, TBIL, ALKP, AST, ALT, LIPASE in the last 168 hours. IMAGING: I reviewed the digital images of the patient's imaging studies. Radiology Results (Last 30 days) None IMPRESSION: Recurrent left posterior neck mass PLAN: 1. Excision recurrent left posterior neck mass 2. Risks, benefits and alternatives to the surgery were discussed in detail with the patient as documented in the office chart 3. Patient understands that even if they have been tested for COVID-19 and the test was negative that the test may fail to detect the virus, or that they may have contracted the virus after the test.Patient understands that despite safeguards to minimize infection, there is a risk that the performance of this elective procedure and/or the care associated with it may result in becoming infected with COVID-19 or may result in a related, unforeseen issue. Patient understands that possible exposure to COVID-19 before, during, and/or after their elective procedure may result in the following: A positive COVID-19 diagnosis, extended quarantine/self isolation, additional tests, hospitalization that may require medical therapy, intensive care treatment, possible need for intubation/ventilator support, short-term or long-term intubation, other potential complications and/or the risk of . Patient further understands that this is an elective or semi-urgent procedure that may not be absolutely required at this time and that the patient was given the opportunity to defer this procedure to a later date. This is acknowledged by the patient including accepting the potential risks and patient wishes to proceed with the procedure. Yun CHAPPELL MD 11/05/2019 documented in this encounter Nursing Notes * Edna Weathers RN - 11/05/2019 2:08 PM CDT 1407: Dr. Chappell updated pt's Cali at end of procedure. * Sofy Pagan RN - 11/05/2019 11:09 AM CDT Hibiclens showers at home x 2, nose to toes protocol completed. CHG wipes used on arrival to OPS, etyhl alcohol swabs x 2 placed in bilateral nares per RN. Pt tolerated well. Patient informed this nurse that they have self isolated at home since their covid testing was done. documented in this encounter OR Notes * Op Note - Edson Chappell MD - 11/05/2019 2:11 PM CDT General Surgery Operative Report-[facility] Lena Youngblood is an 49-year-old female. Date of Operation: 11/05/2019 Preoperative diagnosis: Left posterior neck mass Postoperative diagnosis: Left posterior neck mass Procedure: Excision of left posterior neck mass Anesthesia: Monitor Anesthesia Care Assistants: Salvage Inspector Wood Parts: RENAE Reeves Circulating Nurse 1: Edna Weathers RN Scrub Person 1: Hubert Griffin, STREET ENGINEER Estimated blood loss: 5 cc Brief history: 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 to the patient's preoperative history and physical Operative procedure: After proper informed consent was obtained, the patient was taken to the operating room and placed in the lamai-lrtq-fzzn position. The lesion was identified with the patient prior to the induction of anesthesia to ensure the accuracy of the surgical site. The skin was marked and the jacob was identified and surgery. The patient was prepped and draped in the usual sterile fashion with special attention to the left posterior neck. After adequate sedation had been obtained, local anesthetic was infiltrated over the planned elliptical incision. An elliptical full-thickness incision was then made excising what appeared to be a sebaceous cyst completely with no remnants of cys tic structures left behind. Hemostasis was ensured. Deep tissues were brought together with 2 layers of 3-0 Vicryl suture. The skin was closed with a running 4-0 Monocryl in a subcuticular stitch meghann excellent cosmetic result. Dermabond was placed. Instrument, sponge and needle counts were correct at the end of the case. There were no complications. The patient was transported stable to the rec overy room. I discussed the intraoperative findings with the patient's family by telephone following the operation and questions were answered to his satisfaction. Yun CHAPPELL MD 11/05/2019 * OR PreOp - Melissa Brunson RN - 11/04/2019 7:01 AM CDT Telephone consent obtained from patient for COVID-19 testing. Patient agrees to comply with self-isolation as instructed until day of surgery. Patient expressed understanding. Added 11/04/2019 at 1045 called patient and reviewed preop med to take tomorrow and to hold insulin.Reviewed preop bathing instructions with linette * OR PreOp - Melissa Brunson RN - 10/30/2019 11:35 AM CDT Can you climb 2 flights of stairs without chest pain or SOB? Yes, has foot problem that limits activity Are you physically able to do the same things today that you could 6 months ago? yes Have you had cardiac testing? Yes, had cardiac testing 2 or 3 months ago at [place], [place] Do you see a assistant facility manager? no documented in this encounter Plan of Treatment Upcoming Encounters Date Type Department Care Team (Late st Contact Info) Description 03/14/2024 11:45 AM INSIDE SALES ASSOCIATE Office Visit [facility] [phone] Marvin Mckeon MD [facility] [address] [place] [address] 03/20/2024 11:30 AM INSIDE SALES ASSOCIATE Office Visit [facility] Family [facility] - [place] [address] [place] [phone] Abiodun Segura II, MD [address] [place] [address] documented as of this encounter Procedures Procedure Name Priority Date/Time Associated Diagnosis Comments POCT GLUCOSE - CORREA DOCKED DEVICE Routine 11/05/2019 2:27 PM CDT EXCISION MASS/CYST/TUMOR 11/05/2019 1:26 PM CDT POSTERIOR NECK MASS Case Notes SCHED WITH JAY ON 10/20/19 [facility] PHONE ASSESS POCT GLUCOSE - CORREA DOCKED DEVICE Routine 11/05/2019 10:49 AM CDT PATHOLOGY Routine 11/05/2019 12:00 AM CDT documented in this encounter Results * POCT glucose (11/05/2019 2:27 PM CDT) GLUCOSE POC 71 70 - 99 mg/dL 11/05/2019 2:29 PM CDT [facility] 11/05/2019 2:27 PM CDT Edson Chappell MD POCT ORDERABLES - DEVICE Final Result [facility] [address] [place] [address], * POCT glucose (11/05/2019 10:49 AM CDT) GLUCOSE POC 97 70 - 99 mg/dL 11/05/2019 10:58 AM CDT [facility] 11/05/2019 10:4 9 AM CDT us Edson Chappell MD POCT ORDERABLES - DEVICE Final Result Performing Organization Address [facility]/State/ZIP Co de Phone Number [facility] [address] [place] [address], * Pathology (11/05/2019 12:00 AM CDT) COPATH REPORT ? [facility] ? [address] [facility] ? [place], [place] ??[address] ? [id number] ? Department of Pathology ? Pathology Report ? SURGICAL FINAL REPORT Patient Name: LENA YOUNGBLOOD ? : 1970 (Age: 49) ? Location: [facility] Gender: F ?Collected Date: 11/05/2019 Med Rec #: [id number] ?Date Received: 11/05/2019 Date Reported: 11/06/2019 Provider: Yun CHAPPELL MD ?JARRED FERNÁNDEZ MD Specimen(s) Mass, posterior neck Final Pathologic Diagnosis SKIN AND SOFT TISSUE, POSTERIOR NECK MASS, EXCISION: ? - ? EPIDERMAL INCLUSION CYST Electronically Signed Out ? TEE MUSE MD Pathologist OJL:pb Microscopic Description: Microscopic examination substantiates the above captioned diagnosis. Clinical History Posterior neck mass Gross Description The specimen is received in a single formalin-filled container labeled with the patient's name (Lena Youngblood), (1970), and posterior neck mass. The specimen consists of an unoriented ellipse of skin that is 2.7 x 1.4 cm and has been excised to a maximum depth of 2 cm. ??The skin surface is darkly pigmented, sparsely hair bearing, diffusely wrinkled and appears grossly unremarkable. ??No lesions or scars are grossly identified. ??The deep resection margin demonstrates an abundant amount of attached yellow-white, lobulated, subcutaneous adipose tissue. ??The entire deep resection margin is inked black and the specimen is serially sectioned to reveal a smooth-walled, unilocular cyst cavity that is 0.8 x 0.6 x 0.4 cm. ??The cystic cavity is filled with a scant amount of mohan-brown, soft, friable material. ??No papillary excrescences are grossly identified. Architectural Intern sections are submitted, as follows: 1. ??One complete cross section (to display cystic cavity) :pb Billing Fee Code(s): [address]85 [facility] Tissue specimen (specimen) (OTHER (type in comments)) 11/05/2019 1:52 PM CDT us Edson Chappell MD PATHOLOGY/CYTOLOGY ORDERA NAVEENS Final Result [facility] [address] [place] [address], [place] [phone] documented in this encounter Visit Diagnoses Not on filedocumented in this encounter Administered Medications Inactive Administered Medications - up to 3 most recent administrations Medication Order MAR Action Action Date Dose Rate Site BUpivacaine-EPINEPHrin e 0.5% -1:[id number] injection As needed, Starting on Sun11/05/19 at 1350, Until Sun11/05/19 at 1418, Intra-Op Given 11/05/2019 1:50 PM CDT 10 mLs Operative Site lactated ringers infusion at 10 mL/hr, Intravenous, Continuous, Starting on Sun11/05/19 at 1045, Until Sun11/05/19 at 1815, Infuse at TKO rate, Pre-Op New Bag 11/05/2019 11:28 AM CDT lactated ringers infusion at 100 mL/hr, Intravenous, Continuous, Starting on Sun11/05/19 at 1430, Until Sun11/05/19 at 1815, PACU vancomycin (VANCOCIN) 1,250 mg in sodium chloride 0.9 % 250 mL IVPB 1,250 mg, Intravenous, at 175 mL/hr, field representative/health education to O.R., 1 dose, First dose on Sun11/05/19 at 0945, Pre-OpIndications:Neck mass New Bag 11/05/2019 12:49 PM CDT 1,250 mg 175 mL/hr documented in this encounter Active and Recently Administered Medications Times are shown in CDT. Scheduled Medication Order 11/03/2019 11/04/2019 11/05/2019 vancomycin (VANCOCIN) 1,250 mg in sodium chloride 0.9 % 250 mL IVPB (COMPLETED) 1,250 mg, Intravenous, at 175 mL/hr, field representative/health education to O.R., 1 dose, First dose on Sun11/05/19 at 0945, Pre-Op 1249 (New Bag - Prov ider: Sofy Pagan RN)1419 (Due: Infusion Stop Time - Provider: Sofy Pagan RN) Continuous Medication Order 11/03/2019 11/04/2019 11/05/2019 lactated ringers infusion at 10 mL/hr, Intravenous, Continuous, Starting on Sun11/05/19 at 1045, Until Sun11/05/19 at 1815, Infuse at TKO rate, Pre-Op 1128 (New Bag - Prov ider: Brianna El CRNA)1410 (Anesthesia Volume Adjustment - Provider: Brianna El CRNA) lactated ringers infusion at 100 mL/hr, Intravenous, Continuous, Starting on Sun11/05/19 at 1430, Until Sun11/05/19 at 1815, PACU 1430 (Canceled Entry - Provider: Automatic Discharge Provider - Comment: Automatically canceled at discontinue of medication order) PRN Medication Order 11/03/2019 11/04/2019 11/05/2019 BUpivacaine-EPINEPHrine 0.5% -1:[id number] injection (CANCELED) As needed, Starting on Sun11/05/19 at 1350, Until Sun11/05/19 at 1418, Intra-Op 1350 (Given - Provid er: Edson Chappell MD) documented in this encounter Care Teams Card Scraper Relationship Specialty Start Date End Date Jarred Fernández MD PCP - General FAMILY PRACTICE 07/21/15 09/30/20 documented as of this encounter
--- OUTSIDE RECORDS SUMMARY | 2024-03-02 22:31 | XMS_ITS | Encounter Summary ---
Author Organization [facility] Address [address] [place] [address]. [place], [place] [id number] [place] [address] Care Team Providers Care Regional Geodetic Advisor Name Role Phone Jarred Rod MD Primary Care Provider Unav ailable Shira Shi PA-C Primary Care Provider [phone] Jarred Rod MD Primary Care Provider Unav ailable Colton SILVEIRA MD, Abiodun L Primary Care Provider Jarred Rod MD Primary Care Provider Unav ailable Encounter Details Date Type Department Care Team (Latest Contact Info) Description 11/11/2019 Scan HEALTH INFO SRVCS Scanned, Documents Social [...] COVID-19? No / Unsure 01/24/2021 11:10 AM INNOVATIONS PARAPROFESSIONAL documented as of this encounter Functional Status [...] st Contact Info) Description 03/14/2024 11:45 AM INNOVATIONS PARAPROFESSIONAL Office Visit [facility] [phone] [facility] [address] [place] [address] 03/20/2024 11:30 AM INNOVATIONS PARAPROFESSIONAL Office Visit [facility] Family Medicine - [place] [address] [place] [phone] Abiodun Segura II, MD [address] [place] [phone] documented as of this encounter Visit Diagnoses Not on filedocumented in this encounter Additional Health Concerns Infection Onset Date Last Indicated Resolved Time COVID-19 Rule Out 12/13/2019 12/13/2019 12/14/2019 3:06 PM CDT COVID-19 Confirmed 12/13/2019 12/13/2019 0 12:34 AM INNOVATIONS PARAPROFESSIONAL documented as of this encounter Care Teams Regional Geodetic Advisor Relationship Specialty Start Date End Date Jarred Rod MD PCP - General FAMILY PRACTICE 07/21/15 09/30/20 Shira Shi PA-C [address] [place] [id number] PCP - General PHYSICIAN ENVIRONMENTAL HEALTH OFFICER 10/01/20 11/17/20 Jarred Rod MD [address] [place] [address] PCP - General FAMILY PRACTICE 11/18/20 12/05/20 Abiodun Segura II, MD [address] [place] [id number] PCP - General FAMILY PRACTICE 12/06/20 01/16/21 Jarred Rod MD [address] [place] [address] PCP - General FAMILY PRACTICE 01/17/21 03/08/21 documented as of this encounter
--- OUTSIDE RECORDS SUMMARY | 2024-03-02 22:31 | XMS_ITS | Encounter Summary ---
Author Organization [facility] Address [address] [place] [address]. [place], [place] [id number] [place] [address] Care Team Providers Care Paint Factory Worker Name Role Phone Jarred Rod MD Primary Care Provider Unav ailable Shira Shi PA-C Primary Care Provider [phone]- [phone] Jarred Rod MD Primary Care Provider Unav ailable Colton SILVEIRA MD, Abiodun L Primary Care Provider Jarred Rod MD Primary Care Provider Unav ailable Reason for Visit * Reason Comments CT (SCAN) Encounter Details Date Type Department Care Team (Latest Contact Info) Description 05/01/2019 Scan HEALTH INFO SRVCS Scanned, Documents CT [...] COVID-19? No / Unsure 01/24/2021 11:10 AM TRACK EQUIPMENT OPERATOR documented as of this encounter Functional Status documented as of this encounter Mental Status * Question Answer Entry Date Author Status Because of a physical, mental, or emotional condition, do you have serious difficulty concentrating, remembering, or making decisions? No 08/12/2019 3:00 AM CDT Shelby Martinez RN Active documented in this encounter Plan of Treatment Upcoming Encounters Date Type Department Care Team (Late st Contact Info) Description 03/14/2024 11:45 AM TRACK EQUIPMENT OPERATOR Office Visit [facility] [phone] Marvin Mckeon MD [facility] [address] [place] [address] 03/20/2024 11:30 AM TRACK EQUIPMENT OPERATOR Office Visit [facility] Family Medicine - [place] [address] [place] [phone] Abiodun Segura II, MD [address] [place], [place] [phone] documented as of this encounter Procedures Procedure Name Priority Date/Time Associated Diagnosis Comments CT GENERIC 05/01/2019 documented in this encounter Results * CT GENERIC (05/01/2019) Anatomical Region Laterality Modality Other 05/01/2019 Narrative 05/01/2019 Ordered by an unspecified provider. us Documents Scanned SCANNING Final Result documented in this encounter Visit Diagnoses Not on filedocumented in this encounter Additional Health Concerns Infection Onset Date Last Indicated Resolved Time COVID-19 Rule Out 09/22/2019 09/22/2019 09/24/2019 11:13 PM CDT COVID-19 Rule Out 11/02/2019 11/02/2019 11/03/2019 3:22 PM CDT COVID-19 Rule Out 12/13/2019 12/13/2019 12/14/2019 3:06 PM CDT COVID-19 Confirmed 12/13/2019 12/13/2019 0 12:34 AM TRACK EQUIPMENT OPERATOR documented as of this encounter Care Teams Paint Factory Worker Relationship Specialty Start Date End Date Jarred Rod MD PCP - General FAMILY PRACTICE 07/21/15 09/30/20 Shira Shi PA-C [address] [place] [id number] PCP - General PHYSICIAN DIRECTOR OF MARKET ANALYSIS 10/01/20 11/17/20 Jarred Rod MD [address] [place] [phone] PCP - General FAMILY PRACTICE 11/18/20 12/05/20 Abiodun Segura II, MD [address] [place] [address] PCP - General FAMILY PRACTICE 12/06/20 01/16/21 Jarred Rod MD [address] [place] [id number] PCP - General FAMILY PRACTICE 01/17/21 03/08/21 documented as of this encounter
--- OUTSIDE RECORDS SUMMARY | 2024-03-02 22:31 | XMS_ITS | Encounter Summary ---
Author Organization [facility] Address [address] [place] [address]. [place] [address] [place] [address] Care Team Providers Care Ladle Watcher Name Role Phone Jarred Rod MD Primary Care Provider Unav ailable Encounter Details Date Type Department Care Team (Latest Contact Info) Description 11/05/2019 Travel Social History Tobacco Use Types Packs/Day [...] Contact Info) Description 03/14/2024 11:45 AM LEAD CARGOMAN Office Visit [facility] [phone] Marvin Mckeon MD [facility] [address] [place] [address] 03/20/2024 11:30 AM LEAD CARGOMAN Office Visit [facility] Family Medicine - [address] [phone] Abiodun Segura II, MD [address] [place] [phone] documented as of this encounter Visit Diagnoses Not on filedocumented in this encounter Care Teams Ladle Watcher Relationship Specialty Start Date End Date Jarred Rod MD PCP - General FAMILY PRACTICE 07/21/15 09/30/20 documented as of this encounter
--- OUTSIDE RECORDS SUMMARY | 2024-03-02 22:31 | XMS_ITS | Encounter Summary ---
Author Organization [facility] Address [address] [place] [address]. [place], [place] [id number] [place] [address] Care Team Providers Care Custom Decorating Consultant Name Role Phone Jarred Rod MD Primary Care Provider Unav ailable Shira Shi PA-C Primary Care Provider [phone]- [phone] Jarred Rod MD Primary Care Provider Unav ailable Colton SILVEIRA MD, Abiodun L Primary Care Provider Jarred Rod MD Primary Care Provider Unav ailable Reason for Visit * Reason Comments Lab (SCAN) Encounter Details Date Type Department Care Team (Latest Contact Info) Description 07/16/2019 Scan [facility] HE[facility] INFO SRVCS Scanned, Documents [...] COVID-19? No / Unsure 01/24/2021 11:10 AM COMPUTER SYSTEMS ENGINEER documented as of this encounter [...] Contact Info) Description 03/14/2024 11:45 AM COMPUTER SYSTEMS ENGINEER Office Visit [facility]-[address] [phone] Marvin Mckeon MD [facility] [address] [place] [address] 03/20/2024 11:30 AM COMPUTER SYSTEMS ENGINEER Office Visit [facility] Family Medicine - [place] [address] [place] [phone] Abiodun Segura II, MD [address] [place], [place] [phone] documented as of this encounter Procedures Procedure Name Priority Date/Time Associated Diagnosis Comments OUTSIDE LAB (SCAN ORDER) Routine 07/16/2019 documented in this encounter Results * OUTSIDE LAB (SCAN) (07/16/2019) HGB A1C 8.5 % [facility] ONBASE 07/16/2019 us Documents Scanned SCANNING Final Result [facility] documented in this encounter Visit Diagnoses Not on filedocumented in this encounter Additional Health Concerns Infection Onset Date Last Indicated Resolved Time COVID-19 Rule Out 09/22/2019 09/22/2019 09/24/2019 11:13 PM CDT COVID-19 Rule Out 11/02/2019 11/02/2019 11/03/2019 3:22 PM CDT COVID-19 Rule Out 12/13/2019 12/13/2019 12/14/2019 3:06 PM CDT COVID-19 Confirmed 12/13/2019 12/13/2019 0 12:34 AM COMPUTER SYSTEMS ENGINEER documented as of this encounter Care Teams Custom Decorating Consultant Relationship Specialty Start Date End Date Jarred Rod MD PCP - General FAMILY PRACTICE 07/21/15 09/30/20 Shira Shi PA-C [address] [place] [id number] PCP - General PHYSICIAN HOT HEAD MACHINE OPERATOR 10/01/20 11/17/20 Jarred Rod MD [address] [place] [phone] PCP - General FAMILY PRACTICE 11/18/20 12/05/20 Abiodun Segura II, MD [address] [place] [phone] PCP - General FAMILY PRACTICE 12/06/20 01/16/21 Jarred Rod MD [address] [place] [id number] PCP - General FAMILY PRACTICE 01/17/21 03/08/21 documented as of this encounter
--- OUTSIDE RECORDS SUMMARY | 2024-03-02 22:31 | XMS_ITS | Encounter Summary ---
Author Organization [facility] Address [address] [place] [address]. [place] [address] [place] [address] Care Team Providers Care Combination Welder Apprentice Name Role Phone Jarred Fernández MD Primary Care Provider Unav ailable Reason for Referral * Imaging (Emergency) - Closed Specialty Diagnoses / Procedures Referred By Contac t Referred To Contact RADIOLOGY Procedures US PELVIC TV NON OB Rafal Veloz MD Referral ID Status Reason Start Date Expiration Date Visits Re quested Visits Authorized [id number] Closed 07/02/2019 08/01/2020 1 1 * Imaging (Emergency) - Closed Specialty Diagnoses / Procedures Referred By Contac t Referred To Contact RADIOLOGY Procedures CT ABD+PEL W IV CON ONLY Rafal Veloz MD Referral ID Status Reason Start Date Expiration Date Visits Re quested Visits Authorized [id number] Closed 07/02/2019 08/01/2020 1 1 Reason for Visit * Reason Comments Abdominal Pain Back Pain Urinary Symptoms Encounter Details Date Type Department Care Team (Late st Contact Info) Description 07/02/2019 12:12 PM CDT - 07/02/2019 6:58 PM CDT Emergency [facility] [place] [address] EgsiRafal zurita MD Shafer, Jeffery Scott, MD [address] [address] Abdominal Pain; Back Pain; Urinary Symptoms Discharge Disposition: Home [...] have Coronavirus / COVID-19? No / Unsure 07/02/2019 11:56 AM CDT documented as of this encounter Last Filed Vital Signs Vital Sign Reading Time Taken Comments Blood Pressure 130/87 07/02/2019 6:15 PM CDT Pulse 83 07/02/2019 6:15 PM CDT Temperature 37.2 ??C (99 ??F) 07/02/2019 12:08 PM CDT Respiratory Rate 16 07/02/2019 6:15 PM CDT Oxygen Saturation 98% 07/02/2019 6:15 PM CDT Inhaled Oxygen Concentration - - Weight 88.5 kg (195 lb) 07/02/2019 12:08 PM CDT Height 167.6 cm (5' 6 ) 07/02/2019 12:08 PM CDT Body Mass Index 31.47 07/02/2019 12:08 PM CDT documented in this encounter Discharge Instructions * Attachments The following attachments cannot be sent through Care Everywhere. * Kidney Stones Discharge Instructions (Citizen Of [place]) documented in this encounter Medications at Time of Discharge aspirin EC 81 MG tablet Take 81 mg by mouth daily. 01/22/2019 0 docusate sodium 100 MG capsule Take 1 capsule (100 mg total) by mouth 2 (two) times daily. 30 capsule 05/01/2019 1 HUMALOG MIX 75/25 (75-25) 100 UNIT/ML Suspension Take 55 units in AM and 50 units PM, this should be titrated depending on your blood sugar numbers. 1 vial 1 02/08/2017 2 hydrochlorothiazide 25 MG tablet Take 25 mg by mouth nightly. 1 hydrocodone-acetamin ophen 5-325 MG tabletIndications:Ac nadeem Pain < 7 Day Supply Take 1-2 tablets by mouth every 6 (six) hours as needed. Indications: Acute Pain < 7 Day Supply 20 tablet 05/01/2019 0 lisinopril 40 MG tablet Take 40 mg by mouth nightly. 11/03/2016 2 metoprolol tartrate 50 MG tablet Take 50 mg by mouth 2 (two) times a day. 3 06/14/2018 1 ondansetron 4 MG disintegrating tablet Take 1 tablet (4 mg total) by mouth every 4 (four) hours as needed for Nausea. 20 tablet 02/15/2019 0 simvastatin 40 MG tablet Take 40 mg by mouth nightly at bedtime. 11/03/2016 2 TRULICITY 1.5 MG/0.5ML Solution Pen-injector Inject 1.5 mg into the skin every 7 days. INJECT ON SUNDAY 0 10/07/2018 1 documented as of this encounter ED Notes * Nallely Albarran RN - 07/02/2019 5:37 PM CDT Pt to US. * Dhaval Danielle RN - 07/02/2019 5:05 PM CDT US called in for imaging, spoke with Ruma [phone] * Kvng Lewis MD - 07/02/2019 4:28 PM CDT 16:00 Received signout on 49yo female with PMH HTN, DM here with RLQ abdominal pain. Pt is s/p hysterectomy. Referred to the ED by Dr. Harding. Labwork unremarkable aside from mild normocytic anemia. CT reveals no acute findings. Pt does have known bilateral non-obstructing nephrolithiasis and chronic right hydronephrosis. Has previously planned urology referral. Awaiting formal US of pelvis. The patient rested comfortably throughout her ED stay. US was unremarkable. Case d/w Dr. Harding. Painlikely due to known kidney stone for which she is seeing Dr. Hair. Plan for f/u with him. She declines pain medication. Kvng Lewsi MD 07/03/192050 * Rafal Veloz MD - 07/02/2019 12:41 PM CDT [place], [place] EMERGENCY DEPARTMENT ENCOUNTER Chief Complaint Chief Complaint Patient presents with ??? Abdominal Pain ??? Back Pain ??? Urinary Symptoms History of Present Illness Provider at Bedside Date/Time Event User Comments 07/02/19 1213 Provider at Bedside Assessing Patient RAFAL VELOZ History provided by: Patient spanish interpreter used: No 49-year-old female with a pmh of DM and HTN who presents to the ED for evaluation of right lower quadrant abdominal pain/pressure and dysuria for 5 days. Patient was sent by [employer] Dr. Hair for further investigating. Patient reports the pain is worse when lying on her right side and is a sharp constant pain. Denies any vaginal bleeding or discharge. Medical History ALLERGIES: Allergies Allergen Reactions ??? Amoxicillin Rash ??? Penicillins Rash MEDICATIONS: Prior to Admission medications Medication Sig Start Date End Date Taking? Authorizing Provider aspirin EC 81 MG tablet Take 81 mg by mouth daily. 01/22/19 01/22/20 Doc Abstract docusate sodium 100 MG capsule Take 1 capsule (100 mg total) by mouth 2 (two) times daily. 05/01/19 Kvng Lewis MD HUMALOG MIX 75/25 [...] 25 mg by mouth nightly. Doc Abstract hydrocodone-acetaminophen 5-325 MG tablet Take 1-2 tablets by mouth every 6 (six) hours as needed. Indications: Acute Pain < 7 Day Supply 05/01/19 Kvng Lewis MD lisinopril 40 MG tablet Take 40 mg by mouth nightly. 11/03/16 Doc Abstract metoprolol tartrate 50 MG tablet Take 50 mg by mouth 2 (two) times a day. 06/14/18 Doc Abstract ondansetron 4 MG disintegrating tablet Take 1 tablet (4 mg total) by mouth every 4 (four) hours as needed for Nausea. 02/15/19 Christ Coombs MD simvastatin 40 MG tablet Take 40 [...] neuropathy (CMS/HCC) ??? Hypertension ??? Renal disorder ??? UTI (urinary tract infection) PAST SURGICAL HISTORY: Past Surgical History: Procedure Laterality Date ??? 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 EYE SURGERY ??? FRACTURE SURGERY ??? HYSTERECTOMY ??? RETINAL DETACHMENT SURGERY Right FAMILY HISTORY: Family History Problem Relation Name Age of Onset ??? Diabetes Mother ??? Heart Attack Father SOCIAL HISTORY: Social History Tobacco Use ??? Smoking status: Never Smoker ??? Smokeless tobacco: Never Used Substance Use Topics ??? Alcohol use: No ??? Drug use: No Review of Systems Review of Systems Constitutional: Negative for chills and fever. HENT: Negative for congestion and sore throat. Eyes: Negative for discharge. Respiratory: Negative for shortness of breath. Cardiovascular: Negative for chest pain. Gastrointestinal: Positive for abdominal pain. Negative for nausea and vomiting. Endocrine: Negative for polyuria. Genitourinary: Negative for difficulty urinating. Musculoskeletal: Negative for back pain. Skin: Negative for rash. Neurological: Negative for light-headedness. Psychiatric/Behavioral: Negative for dysphoric mood. See HPI for further details. All systems negative except as marked. Physical Exam Filed Vitals: 07/02/19 1208 BP: (!) 154/110 Pulse: 86 Resp: 16 Temp: 99 ??F (37.2 ??C) TempSrc: Oral SpO2: 100% Weight: 88.5 kg (195 lb) Height: 5' 6 (1.676 m) Physical Exam Constitutional: She is oriented to person, place, and time. She appears distressed (mild). HENT: Head: Normocephalic. Eyes: Conjunctivae are normal. Cardiovascular: Normal rate and normal heart sounds. Pulmonary/Chest: Effort normal and breath sounds normal. Abdominal: Soft. She exhibits no distension. There is tenderness in the right lower quadrant. Neurological: She is alert and oriented to person, place, and time. Skin: Skin is warm and dry. She is not diaphoretic. Psychiatric: She has a normal mood and affect. Diagnostic Studies / Procedures ELECTROCARDIOGRAMS: No results found for this visit on 07/02/19. LABORATORY STUDIES: No results found for this visit on 07/02/19. IMAGING STUDIES No orders to display ED Course / Medical Decision Making MDM Number of Diagnoses or Management Options Diagnosis management comments: This patient has R sided abdominal pain. The patient has R sided hydroureter which is chronic. Urology was called and they are going to follow up with the patient. Pt with continued RLQ pain, pelvic US pending. Signed out to Dr. Lewis at 1615 Pulse Ox Interpretation: Saturation: 100 (%) Oxygen Delivery: Room air Interpretation: No acute hypoxia at this time. Rhythm strip interpretation: Rhythm sinus rate 86. No ectopy. Data reviewed: All current, pertinent and timely studies (laboratory, imaging, and procedures) wereordered and results reviewed by Rafal Veloz MD unless otherwise noted. Triage notes and available nursing notes reviewed. Previous medical record reviewed when available. Repeat vital signs reviewed. Medications - No data to display Clinical Impression None Current Discharge Medication List Disposition: Data Unavailable Follow-Up: JARRED FERNÁNDEZ MD I, Willa Eastman, acting as a scribe, am personally taking down the notes in the presence of Rafal Veloz MD. Take no action on this note until reviewed and authenticated by the physician. Rafal Veloz MD 07/02/19 1618 * Darlene Suarez RN - 07/02/2019 12:10 PM CDT Patient to ED with c/o low back pain and right lower abdominal pain since Sunday. Stated urinary frequency and pain with urination. Patient was sent from her OBGYN. documented in this encounter Plan of Treatment Upcoming Encounters Date Type Department Care Team (Late st Contact Info) Description 03/14/2024 11:45 AM COMMERCIAL REAL ESTATE LENDER Office Visit [facility] [phone] Marvin Mckeon MD [facility] [address] [place] [address] [phone] 03/20/2024 11:30 AM COMMERCIAL REAL ESTATE LENDER Office Visit [facility] - [place] [address] [place] [id number] Abiodun Segura II, MD [address] [place] [address] documented as of this encounter Procedures Procedure Name Priority Date/Time Associated Diagnosis Comments US PELVIC NON OB COMP TV STAT 07/02/2019 5:[address] ABD+PEL W CON STAT 07/02/2019 3:16 PM CDT HC URINALYSIS AUTO W/O MICRO STAT 07/02/2019 1:31 PM CDT BASIC METABOLIC PANEL STAT 07/02/2019 1:19 PM CDT CBC W/DIFF AUTOMATED STAT 07/02/2019 1:19 PM CDT documented in this encounter Results * US PELVIC TV NON OB (07/02/2019 5:58 PM CDT) Anatomical Region Laterality Modality Pelvis Ultrasound 07/02/2019 6:17 PM CDT Impressions 07/02/2019 6:20 PM CDT =====IMPRESSION:===== 1. No sonographic evidence of ovarian torsion. Narrative 07/02/2019 6:20 PM CDT EXAMINATION: Ultrasound pelvis non-OB EXAM DATE/TIME: 07/02/2019 5:35 PM REASON FOR EXAM: ??torsion ? CLINICAL HISTORY: 49 years female with history of 49-year-old female with a pmh of DM and HTN who presents to the ED for evaluation of right lower quadrant abdominal pain/pressure and dysuria for 5 days. Patient was sent by [employer] Dr. Hair for further investigating. Patient reports the pain is worse when lying on her right side and is a sharp constant pain. Denies any vaginal bleeding or discharge. COMPARISON: CT abdomen/pelvis on 07/02/2019. TECHNIQUE: Ultrasound examination of the pelvis was performed utilizing transvaginal approach to assess grayscale appearance, color doppler flow, and spectral waveform characteristics. FINDINGS: Uterus: Surgically absent. Right ovary: 2 x 2 x 1.2 cm. Normal echogenicity. Normal blood flow and spectral analysis. No masses or pathologic cysts. Left ovary: 4.1 x 2.6 x 2.7 cm. Normal echogenicity. Normal blood flow and spectral analysis. No masses or pathologic cysts. Other findings: No fluid is seen within the pelvis. Visible bladder not adequately distended. Procedure Note Cali Parada MD - 07/02/2019 EXAMINATION: Ultrasound pelvis non-OB EXAM DATE/TIME: 07/02/2019 5:35 PM REASON FOR EXAM: torsion CLINICAL HISTORY: 49 years female with history of 49-year-old female witha pmh of DM and HTN who presents to the ED for evaluation of right lower quadrant abdominal pain/pressure and dysuria for 5 days. Patient wassent by [employer] Dr. Hair for further investigating. Patient reports thepain is worse when lying on her right side and is a sharp constant pain.Denies any vaginal bleeding or discharge. COMPARISON: CT abdomen/pelvis on 07/02/2019. TECHNIQUE: Ultrasound examination of the pelvis was performed utilizing transvaginal approach to assess grayscale appearance, color dopplerflow, and spectral waveform characteristics. FINDINGS: Uterus: Surgically absent. Right ovary: 2 x 2 x 1.2 cm. Normal echogenicity. Normal blood flow and spectral analysis. No masses or pathologic cysts. Left ovary: 4.1 x 2.6 x 2.7 cm. Normal echogenicity. Normal blood flowand spectral analysis. No masses or pathologic cysts. Other findings: No fluid is seen within the pelvis. Visible bladder not adequately distended. =====IMPRESSION:===== 1. No sonographic evidence of ovarian torsion. us Rafal Veloz MD ULTRASOUND Final Result * CT ABD+PEL W IV CON ONLY (07/02/2019 3:16 PM CDT) Anatomical Region Laterality Modality Abdomen Computed Tomogra phy 07/02/2019 3:17 PM CDT Impressions 07/02/2019 3:25 PM CDT Impression: 1. No acute abdominopelvic abnormality identified. 2. Chronic marked right hydronephrosis, most likely reflecting UPJ obstruction. 3. Bilateral nonobstructing nephrolithiasis. 4. Small hiatal hernia with associated thickening of the gastroesophageal junction, most commonly seen in the setting of reflux. Narrative 07/02/2019 3:[address] abdomen and pelvis with contrast: 07/02/2019 3:17 PM INDICATION: ??Low back pain and right lower quadrant abdominal pain beginning 4 days ago. Associated urinary frequency and dysuria. TECHNIQUE: Following administration of 100 mL Isovue-370 IV contrast, multidetector CT is performed through the abdomen and pelvis. ??Multiplanar images are created and reviewed. A dose lowering technique was used for this procedure, which may include, but is not limited to, dose reduction techniques, automated exposure control, the use of a iterative reconstruction, and ALARA (as low as reasonably achievable)/image gently techniques. COMPARISON: 05/01/2019. FINDINGS: Lower Chest: Heart size is normal. There is no pleural or pericardial effusion. Mild atelectasis is noted at the lung bases. Abdomen: Liver: Unremarkable, without mass or biliary dilation. Gallbladder and biliary tree: The ??common bile duct is nondilated. The gall bladder is unremarkable. Pancreas: Normal. Spleen: Scattered calcified granulomata are present. Adrenal glands: Normal. Kidneys: The nephrograms are symmetric. There is an unchanged 4 mm calculus in the interpolar left renal collecting system and probably a 3 mm calculus in the right upper pole collecting system. Chronic marked right hydronephrosis is again noted, probably reflecting ureteropelvic junction obstruction. The ureters are nondilated, and contain no stones. Bowel: There is a small hiatal hernia. Mild thickening is noted at the gastroesophageal junction, most commonly associated with reflux. The appendix is normal. Peritoneum: There is no ascites, pneumoperitoneum, or adenopathy. Retroperitoneum: The aorta is normal in caliber. There is no retroperitoneal adenopathy. Pelvis: The urinary bladder is unremarkable. The uterus is surgically absent. Multiple small fluid density structures are noted within the left ovary, likely functional follicles. There are no solid adnexal masses. Rectum and perirectal fat appear normal. There is no pelvic adenopathy or free fluid. No destructive osseus lesion is identified. Procedure Note Tacos Wilson MD - 07/02/2019 CT abdomen and pelvis with contrast: 07/02/2019 3:17 PM INDICATION: Low back pain and right lower quadrant abdominal pain beginning 4 days ago. Associated urinary frequency and dysuria. TECHNIQUE: Following administration of 100 mL Isovue-370 IV contrast, multidetector CT is performed through the abdomen and pelvis.Multiplanar images are created and reviewed. A dose lowering technique was used for this procedure, which may include, but is not limited to, dose reduction techniques, automated exposure control, the use of a iterative reconstruction, and ALARA (as low as reasonably achievable)/image gently techniques. COMPARISON: 05/01/2019. FINDINGS: Lower Chest: Heart size is normal. There is no pleural or pericardial effusion. Mild atelectasis is noted at the lung bases. Abdomen: Liver: Unremarkable, without mass or biliary dilation. Gallbladder and biliary tree: The common bile duct is nondilated. Thegall bladder is unremarkable. Pancreas: Normal. Spleen: Scattered calcified granulomata are present. Adrenal glands: Normal. Kidneys: The nephrograms are symmetric. There is an unchanged 4 mmcalculus in the interpolar left renal collecting system and probably a 3 mmcalculus in the right upper pole collecting system. Chronic marked right hydronephrosis is again noted, probably reflecting ureteropelvicjunction obstruction. The ureters are nondilated, and contain no stones. Bowel: There is a small hiatal hernia. Mild thickening is noted at the gastroesophageal junction, most commonly associated with reflux. The appendix is normal. Peritoneum: There is no ascites, pneumoperitoneum, or adenopathy. Retroperitoneum: The aorta is normal in caliber. There is no retroperitoneal adenopathy. Pelvis: The urinary bladder is unremarkable. The uterus is surgically absent. Multiple small fluid density structures are noted within the left ovary, likely functional follicles. There are no solid adnexal masses. Rectumand perirectal fat appear normal. There is no pelvic adenopathy or freefluid. No destructive osseus lesion is identified. Impression: 1. No acute abdominopelvic abnormality identified. 2. Chronic marked right hydronephrosis, most likely reflecting UPJ obstruction. 3. Bilateral nonobstructing nephrolithiasis. 4. Small hiatal hernia with associated thickening of thegastroesophageal junction, most commonly seen in the setting of reflux. us Rafal Veloz MD CT Final Result * (ABNORMAL) URINALYSIS (07/02/2019 1:31 PM CDT) SPECIMEN TYPE URINE CLEAN CATCH 07/02/2019 1:27 PM CDT [facility] COLOR (U) YELLOW 07/02/2019 1:49 PM CDT [facility] TRANSPARENCY CLOUDY 07/02/2019 1:49 PM CDT [facility] SPECIFIC GRAVITY (U) 1.012 1.001 - 1.030 07/02/2019 1:49 PM CDT [facility] U PH 5.0 5.0 - 9.0 07/02/2019 1:49 PM CDT [facility] LEUKOCYTES (U) NEGATIVE NEGATIVE 07/02/2019 1:49 PM CDT [facility] NITRITES NEGATIVE NEGATIVE 07/02/2019 1:49 PM CDT [facility] PROTEIN (U) 100(H) <30 MG/DL 07/02/2019 1:49 PM T [facility] URINE GLUCOSE NEGATIVE NEGATIVE MG/DL 07/02/2019 1:49 PM CDT [facility] KETONES MG/DL (U) NEGATIVE NEGATIVE MG/DL 07/02/2019 1:49 PM T [facility] UROBILINOGEN NEGATIVE NEGATIVE MG/DL 07/02/2019 1:49 PM CDT [facility] BILIRUBIN (U) NEGATIVE NEGATIVE MG/DL 07/02/2019 1:49 PM CDT [facility] BLOOD (U) SMALL(A) NEGATIVE 07/02/2019 1:49 PM T [facility] CULTURE & SENSITIVITY INDICATED? CULTURE IS NOT INDICATED 07/02/2019 1:49 PM CDT [facility] SQUAMOUS EPITHELIALS MANY /LPF 07/02/2019 1:49 PM CDT [facility] WBC/HPF 1 <6 /HPF 07/02/2019 1:49 PM CDT [facility] RBC/HPF 1 <6 /HPF 07/02/2019 1:49 PM CDT [facility] BACTERIA (U) RARE(A) NONE /HPF 07/02/2019 1:49 PM CDT [facility] URINE SPECIMEN OBTAINED BY CLEAN CATCH PROCEDURE / Unknown 07/02/2019 1:31 PM CDT us Rafal Veloz MD URINE ORDERABLES Final Result [facility] [address] [place] [address], [place] [phone] * (ABNORMAL) BASIC METABOLIC PANEL (07/02/2019 1:19 PM CDT) GLUCOSE 128(H) 70 - 99 MG/DL 07/02/2019 1:51 PM CDT [facility] BUN 18 7 - 18 MG/DL 07/02/2019 1:51 PM CDT [facility] CREATININE S/P/B 1.00 0.55 - 1.02 MG/DL 07/02/2019 1:51 PM CDT [facility] SODIUM S/P/B 137 136 - 145 MMOL/L 07/02/2019 1:51 PM CDT [facility] POTASSIUM S/P/B 4.2 3.5 - 5.1 MMOL/L 07/02/2019 1:51 PM CDT [facility] CHLORIDE S/P/B 107 100 - 108 MMOL/L 07/02/2019 1:51 PM CDT [facility] CO2 27.5 21 - 32 MMOL/L 07/02/2019 1:51 PM CDT [facility] CALCIUM S/P/B 8.5 8.5 - 10.1 MG/DL 07/02/2019 1:51 PM CDT [facility] ANION GAP 2.5(L) 5 - 15 MMOL/L 07/02/2019 1:51 PM CDT [facility] BUN CREATININE RATIO 18.0 6 - 26 07/02/2019 1:51 PM CDT [facility] EGFR NON-AFR. AMER. 67(L) >90 ML/MIN/1.7 3 M2 07/02/2019 1:51 PM CDT [facility] EGFR AFR. AMER. 77(L) >90 ML/MIN/1.7 3 M2 07/02/2019 1:51 PM CDT [facility] Comment: NOTE: eGFR is not calculated for patients <18 years of age. This is an estimated GFR (CKD EPI) and should not be used for calculating drug doses. 07/02/2019 1:19 PM CDT Rafal Veloz MD LABORATORY Final Result [facility] [address] [place] [address], [place] [phone] * (ABNORMAL) CBC W/DIFF AUTOMATED (07/02/2019 1:19 PM CDT) WBC 9.4 4.5 - 11.0 x10'3/uL 07/02/2019 1:33 PM CDT [facility] RBC 3.83(L) 4.20 - 5.40 x10'6/uL 07/02/2019 1:33 PM CDT [facility] HGB 11.8(L) 12.0 - 16.0 G/DL 07/02/2019 1:33 PM CDT [facility] HCT 34.8(L) 38.0 - 48.0 % 07/02/2019 1:33 PM CDT [facility] MCV 90.9 80.0 - 94.0 FL 07/02/2019 1:33 PM CDT [facility] MCH 30.8 27.0 - 31.0 PG 07/02/2019 1:33 PM CDT [facility] MCHC 33.9 32.0 - 36.0 G/DL 07/02/2019 1:33 PM CDT [facility] RDW 12.8 11.5 - 14.5 % 07/02/2019 1:33 PM CDT [facility] PLT 269 130 - 400 x10'3/uL 07/02/2019 1:33 PM CDT [facility] MPV 11.2 9.3 - 12.2 FL 07/02/2019 1:33 PM CDT [facility] DIFFERENTIAL TYPE AUTOMATED DIFFERENTIAL 07/02/2019 1:33 PM CDT [facility] NEUTROPHILS % 65.8 % 07/02/2019 1:33 PM CDT [facility] LYMPHOCYTES % 28.8 % 07/02/2019 1:33 PM CDT [facility] MONOCYTES % 4.1 % 07/02/2019 1:33 PM CDT [facility] EOSINOPHILS 0.5 % 07/02/2019 1:33 PM CDT [facility] BASOPHILS 0.6 % 07/02/2019 1:33 PM CDT [facility] IMMATURE GRANS % 0.2 % 07/02/19 20 1:33 PM CDT [facility] ABS. NEUTROPHILS TOTAL 6.17 1.80 - 7.70 x10'3/uL 07/02/2019 1:33 PM CDT [facility] ABS. LYMPHOCYTES 2.70 1.00 - 4.80 x10'3/uL 07/02/2019 1:33 PM CDT [facility] ABS. MONOCYTES 0.38 0.24 - 0.86 x10'3/uL 07/02/2019 1:33 PM CDT [facility] ABS. EOSINOPHILS 0.05 0.04 - 0.36 x10'3/uL 07/02/2019 1:33 PM CDT [facility] ABS. BASOPHILS 0.06 0.01 - 0.08 x10'3/uL 07/02/2019 1:33 PM CDT [facility] ABS. IMMATURE GRANULOCYTES 0.02 0.00 - 0.49 x10'3/uL 07/02/2019 1:33 PM CDT [facility] 07/02/2019 1:19 PM CDT Rafal Veloz MD LABORATORY Final Result [facility] [address] [place] [address], documented in this encounter Visit Diagnoses Diagnosis Kidney stone- Primary Calculus of kidney documented in this encounter Administered Medications Inactive Administered Medications - up to 3 most recent administrations Medication Order MAR Action Action Date Dose Rate Site iopamidol (ISOVUE-370) 76 % injection 100 mL 100 mL, Intravenous, IMG once as needed, Contrast, 1 dose, Starting on Sun07/02/19 at 1516, Until Sun07/02/19 at 1516 Given 07/02/2019 3:16 PM CDT 100 mLs ketorolac (TORADOL) injection 15 mg 15 mg, Intravenous, Once, 1 dose, On Sun07/02/19 at 1615, For IV administration, give over 15 seconds. Given 07/02/2019 4:26 PM CDT 15 mg morphine injection 4 mg 4 mg, Intravenous, Once, 1 dose, On Sun07/02/19 at 1245 Given 07/02/2019 1:27 PM CDT 4 mg documented in this encounter Active and Recently Administered Medications Times are shown in CDT. Scheduled Medication Order 06/30/2019 07/01/2019 07/02/2019 ketorolac (TORADOL) injection 15 mg (COMPLETED) 15 mg, Intravenous, Once, 1 dose, On Sun07/02/19 at 1615, For IV administration, give over 15 seconds. 1626 (Given - Provid er: Nallely Albarran RN) morphine injection 4 mg (COMPLETED) 4 mg, Intravenous, Once, 1 dose, On Sun07/02/19 at 1245 1327 (Given - Provid er: Nallely Albarran RN) PRN Medication Order 06/30/2019 07/01/2019 07/02/2019 iopamidol (ISOVUE-370) 76 % injection 100 mL (COMPLETED) 100 mL, Intravenous, IMG once as needed, Contrast, 1 dose, Starting on Sun07/02/19 at 1516, Until Sun07/02/19 at 1516 1516 (Given - Provid er: Jaqueline Jacobs RDMS) documented in this encounter Care Teams Combination Welder Apprentice Relationship Specialty Start Date End Date Jarred Fernández MD PCP - General FAMILY PRACTICE 07/21/15 09/30/20 documented as of this encounter
--- OUTSIDE RECORDS SUMMARY | 2024-03-02 22:31 | XMS_ITS | Encounter Summary ---
Author Organization [facility] Address [address] [place] [address]. [place], [place] [address] [place] [address] Care Team Providers Care Animal Care Supervisor Name Role Phone Jarred Rod MD Primary Care Provider Unav ailable Shira Shi PA-C Primary Care Provider [phone] Jarred Rod MD Primary Care Provider Unav ailable Colton SILVEIRA MD, Abiodun L Primary Care Provider Jarred Rod MD Primary Care Provider Unav ailable Encounter Details Date Type Department Care Team (Latest Contact Info) Description 10/08/2019 Scan HEALTH INFO SRVCS Scanned, Documents Social [...] COVID-19? No / Unsure 01/24/2021 11:10 AM TOOL SPECIALIST documented as of this encounter Functional [...] st Contact Info) Description 03/14/2024 11:45 AM TOOL SPECIALIST Office Visit [facility] [phone] Marvin Mckeon MD [facility] [address] [place] [address] 03/20/2024 11:30 AM TOOL SPECIALIST Office Visit [facility] Family [facility] - [place] [address] [place] [phone] Abiodun Segura II, MD [address] [place] [phone] documented as of this encounter Visit Diagnoses Not on filedocumented in this encounter Additional Health Concerns Infection Onset Date Last Indicated Resolved Time COVID-19 Rule Out 11/02/2019 11/02/2019 11/03/2019 3:22 PM CDT COVID-19 Rule Out 12/13/2019 12/13/2019 12/14/2019 3:06 PM CDT COVID-19 Confirmed 12/13/2019 12/13/2019 0 12:34 AM TOOL SPECIALIST documented as of this encounter Care Teams Animal Care Supervisor Relationship Specialty Start Date End Date Jarred Rod MD PCP - General FAMILY PRACTICE 07/21/15 09/30/20 Shira Shi PA-C [address] [place] [id number] PCP - General PHYSICIAN CAFETERIA COOK 10/01/20 11/17/20 Jarred Rod MD [address] [place] [id number] PCP - General FAMILY PRACTICE 11/18/20 12/05/20 Abiodun Segura II, MD [address] [place] [id number] PCP - General FAMILY PRACTICE 12/06/20 01/16/21 Jarred Rod MD [address] [place] [id number] PCP - General FAMILY PRACTICE 01/17/21 03/08/21 documented as of this encounter
--- OUTSIDE RECORDS SUMMARY | 2024-03-02 22:31 | XMS_ITS | Encounter Summary ---
Author Organization [facility] Address [address] [place] [address]. [place] [address] [place] [address] Care Team Providers Care Marriage And Family Therapist Name Role Phone Jarred Rod MD Primary Care Provider Unav ailable Reason for Visit * Auth/Cert Specialty Diagnoses / Procedures Referred By Lyla chaney Referred To Contact Diagnoses POSTERIOR NECK MASS Procedures EXCISION POSTERIOR NECK MASS Referral ID Status Reason Start Date Expiration Date Visits Re quested Visits Authorized [id number] 1 1 Encounter Details Date Type Department Care Team (Late st Contact Info) Description 11/05/2019 1:29 PM CDT Anesthesia Event [facility] [place] [address] Mauricio Mccormick MD [address] [address] Viet Araujo MD [address] [facility] [address] [place] [address] Anesthesia Record Procedure Summary Procedure Name Responsible Anesthesiologist Anesthesia Start Time Anesthesia Stop Time EXCISION POSTERIOR NECK MASS Mauricio Mccormick MD 11/05/19 1329 11/05/19 1424 Events Date Time Event Comment 11/05/2019 1029 1029 AN Anesthesia Prepped 1128 AN MECHANICAL DEVELOPMENT ENGINEER Prepped 1329 An Start Patient ID and consent checked and patient reassessed. 1329 An Start Data 1329 Face Mask Applied 1330 Anesthesia Ready 1334 An Induction 1416 An Emergence 1422 Post Anesthetic Care Handoff I completed my handoff to the receiving nurse during which we: 1. Identified the patient 2. Identified the responsible provider 3. Reviewed the pertinent medical history 4. Discussed the surgical course 5. Reviewed intra-op anesthesia management and issues during anesthesia 6. Set expectations for post-procedure period 7. Allowed opportunity for questions and acknowledgement of understanding. 1424 An Stop 1424 an stop data Meds Name Total midazolam 2 mg/2 mL injection 2 mg fentaNYL (SUBLIMAZE) 100 mcg/2 mL inject ion 25 mcg lidocaine (PF) (XYLOCAINE) 2% injection 100 mg propofol (DIPRIVAN) 200 mg/20 mL injecti on 30 mg propofol (DIPRIVAN) 1000 mg/100 mL infus ion 1,109.46 mg ketamine 100 mg/mL injection 20 mg etomidate 2 mg/mL injection 6 mg lactated ringers infusion 500 mL * Agents Name O2 N2O Air Inspired Sevoflurane Sevoflurane * Blood No blood administrations on file. Lines, Drains, and Airways Type Details Placement Removal Peripheral IV Placement Date: 09/22/19; Placement Time: 1518; Placed Outside of This Facility?: No; Size: 20 G; Orientation: Right; Location: Antecubital; Site Prep: Chlorhexidine; Inserted By: PAM CARRERA; Insertion attempts: 1; Ultrasound-guided Placement?: Yes; Removal Date: 11/12/19 (not charted out) 09/22/19 1518 by Pooja Alegria RN 11/12/19 0000 by Erica Juarez RN Peripheral IV Placement Date: 11/05/19; Placement Time: 1030; Placed Outside of This Facility?: No; Size: 22 G; Orientation: Left; Location: Hand; Site Prep: Chlorhexidine; Local Anesthetic: None; Inserted By: 2 attempts by usha nurse and [address] lindsay PATEL; Insertion attempts: 4; Ultrasound-guided Placement?: No; Patient Tolerance: Tolerated well; Removal Date: 11/05/19; Removal Time: 1559; Removal Reason: Patient Discharged 11/05/19 1030 by Sofy Pagan RN 11/05/19 1559 by Sofy Pagan RN Supraglottic Airway Placement Date: 11/05/19; Placement Time: 1128; Airway Device: Facemask; Removal Date: 12/13/19; Removal Time: 0531 11/05/19 1128 by Brianna El CRNA 12/13/19 0531 by Raine Ferraro RN Supraglottic Airway Placement Date: 11/05/19; Placement Time: 1329; Airway Device: Facemask; Placed By: MECHANICAL DEVELOPMENT ENGINEER; Placement Verified By: Capnography, Auscultation, Chest Rise; Removal Date: 12/13/19; Removal Time: 0531; Removal Person: MECHANICAL DEVELOPMENT ENGINEER; Removal Reason: End of Case 11/05/19 1329 by Brianna El CRNA 12/13/19 0531 by Raine Ferraro RN Supraglottic Airway Placement Date: 11/05/19; Placement Time: 1334; Airway Device: Nasal pharyngeal airway (#28); Removal Date: 12/13/19; Removal Time: 0531 11/05/19 1334 by Brianna El CRNA 12/13/19 0531 by Raine Ferraro RN Surgical/Incision 11/05/19; 1353; Surgical Wound; Neck; Left; ADHESIVE DERMABOND (x1); Left Posterior Neck- Sutures, Dermabond; 11/05/19; 1810 11/05/19 1353 by Edna Weathers RN 11/05/19 1810 by Automatic Discharge Provider documented in this [...] R N Active documented in this encounter OR Notes * Anesthesia Postprocedure Evaluation - Mauricio Mccormick MD - 11/05/2019 3:55 PM CDT Anesthesia Post-op Note Lena Mcneal Procedure(s): EXCISION POSTERIOR NECK MASS (N/A ) Anesthesia type: MAC Vitals: 11/05/19 1600 BP: (!) 165/92 Vitals: 11/05/19 1600 Pulse: 76 Vitals: 11/05/19 1600 Resp: 16 Vitals: 11/05/19 1421 Temp: 36.3 ??C Vitals: 11/05/19 1600 SpO2: 99% Patient Location: Phase II/Outpatient Level of Consciousness: awake Pain Management: adequate analgesia Airway Patency: patent Respiratory Status: acceptable Cardiovascular Status: acceptable Post-Op Nausea: none Postoperative Hydration: euvolemic Complications: no anesthesia complication * Anesthesia Postprocedure Evaluation - Mauricio Mccormick MD - 11/05/2019 3:00 PM CDT Anesthesia Post-op Note Lena Mcneal Procedure(s): EXCISION POSTERIOR NECK MASS (N/A ) Anesthesia type: MAC Vitals: 11/05/19 1515 BP: (!) 172/90 Vitals: 11/05/19 1515 Pulse: 77 Vitals: 11/05/19 1515 Resp: 9 Vitals: 11/05/19 1421 Temp: 36.3 ??C Vitals: 11/05/19 1515 SpO2: 100% Patient Location: PACU Level of Consciousness: awake Pain Management: adequate analgesia Airway Patency: patent Respiratory Status: acceptable Cardiovascular Status: acceptable Post-Op Nausea: none Postoperative Hydration: euvolemic Complications: no anesthesia complication * Anesthesia Preprocedure Evaluation - Mauricio Mccormick MD - 11/05/2019 10:26 AM CDT Anesthesia ROS/MED History Reviewed: Patient summary , ECG, Family history anesthesia, Anesthesia history , Medications , Labs , Images/Studies , Unchecked boxes are not applicable Pre-Anesthetic State: alert, awake and responds appropriately no history of anesthetic complications Pulmonary neg pulmonary ROS Cardiovascular Exercise tolerance:poor (+) hypertension, hyperlipidemia Neuro/Psych (+) neuromuscular disease, (neuropathy) GI/Hepatic/Renal (+) renal disease, (CRI) Endo/Other (+) diabetes mellitus, obese, arthritis, (OA) Comments: Blind right eye. GENERAL COMMENTS -- Amoxicillin -- Rash -- Penicillins -- Rash Past Medical History: No date: Arthritis No date: Charcot foot due to diabetes mellitus (CMS/HCC) Comment: LEFT FOOT No date: Diabetes mellitus (CMS/HCC) No date: Diabetic neuropathy ([facility]) No date: Hypertension No date: Renal disorder Comment: 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 No date: UTI (urinary tract infection) No date: Vision decreased Comment: blind right eye, poor vision left eye Past Surgical History: No date: AMPUTATION TOE; Left Comment: 2ND AND 3RD TOE No date: BLADDER SURGERY No date: EYE SURGERY 2019: HYSTERECTOMY Comment: hysterectomy, cervical surgery No date: RETINAL DETACHMENT SURGERY; Right Physical Evaluation Airway Mallampati: III TM Distance: >3 FB Neck ROM: normal Dental Pulmonary Pulmonary exam normal (+) decreased breath sounds, (diminished bilaterally) Cardiovascular Rhythm: regular Rate: normal Cardiovascular exam normal Other findings: Blood pressure (!) 147/95, pulse 66, temperature 36.7 ??C, temperature source Oral,resp. rate 16, height 5' 6 (1.676 m), weight 90.2 kg (198 lb 13.7 oz), last menstrual period 10/29/2004, SpO2 98 %. No results for input(s): WBC, RBC, HGB, HCT, PLT, NA, K, CL, CO2, AGAP, BUN, CR, BUNCREATININ, GFRNON, GFR, GLU, CA in the last 72 hours. Anesthesia Plan ASA 3 Intravenous Induction Anesthesia type: MAC Discussed potential risks of General Anesthesia including but not limited to corneal abrasion, visual impairment or visual loss, mouth injury, dental damage, sore throat, hoarseness, esophageal injury, awareness under anesthesia, nerve injury due to positioning, aspiration, pneumonia, stroke, cardiac event, adverse drug reactions and . Tiva anesthetic planned and discussed. Possible GA as needed. Informed Consent Anesthetic plan and risks discussed with patient of whom consent was obtained. . documented in this encounter Plan of Treatment Upcoming Encounters Date Type Department Care Team (Late st Contact Info) Description 03/14/2024 11:45 AM PARTS CLERK Office Visit [facility]-[address] [phone] Marvin Mckeon MD [facility] [address] [place] [address] 03/20/2024 11:30 AM PARTS CLERK Office Visit [facility] Family Medicine - [place] [address] [place] [phone] Abiodun Segura II, MD [address] [place] [phone] documented as of this encounter Visit Diagnoses Not on filedocumented in this encounter Administered Medications Inactive Administered Medications - up to 3 most recent administrations Medication Order MAR Action Action Date Dose Rate Site etomidate (AMIDATE) injection PRN, Starting on Sun11/05/19 at 1356, Until Sun11/05/19 at 1424, Anesthesia Intra-Op Given 11/05/2019 2:06 PM CDT 2 mg Given 11/05/2019 1:56 PM CDT 4 mg fentaNYL (SUBLIMAZE) injection Intravenous, PRN, Starting on Sun11/05/19 at 1338, Until Sun11/05/19 at 1424, Anesthesia Intra-Op Given 11/05/2019 1:38 PM CDT 25 mcg ketamine (KETALAR) injection PRN, Starting on Sun11/05/19 at 1340, Until Sun11/05/19 at 1424, Anesthesia Intra-Op Given 11/05/2019 1:48 PM CDT 10 mg Given 11/05/2019 1:40 PM CDT 10 mg lactated ringers infusion at 10 mL/hr, Intravenous, Continuous, Starting on Sun11/05/19 at 1045, Until Sun11/05/19 at 1815, Infuse at TKO rate, Pre-Op New Bag 11/05/2019 11:28 AM CDT lidocaine (PF) (XYLOCAINE) 2 % injection Intravenous, PRN, Starting on Sun11/05/19 at 1331, Until Sun11/05/19 at 1424, Anesthesia Intra-Op Given 11/05/2019 1:31 PM CDT 100 mg midazolam (VERSED) injection Intravenous, PRN, Starting on Sun11/05/19 at 1326, Until Sun11/05/19 at 1424, Anesthesia Intra-Op Given 11/05/2019 1:26 PM CDT 2 mg propofol (DIPRIVAN) infusion Continuous PRN, Starting on Sun11/05/19 at 1221, Until Sun11/05/19 at 1424, Anesthesia Intra-Op Rate/Dose Change 11/05/2019 1:30 PM CDT 100 mcg/kg/min 54.1 mL/hr New Bag 11/05/2019 12:21 PM CDT 100 mcg/kg/min 54.1 mL/ hr propofol (DIPRIVAN) IV bolus Intravenous, PRN, Starting on Sun11/05/19 at 1338, Until Sun11/05/19 at 1424, Anesthesia Intra-Op Given 11/05/2019 1:38 PM CDT 30 mg documented in this encounter Care Teams Marriage And Family Therapist Relationship Specialty Start Date End Date Jarred Rod MD PCP - General FAMILY PRACTICE 07/21/15 09/30/20 documented as of this encounter
--- OUTSIDE RECORDS SUMMARY | 2024-03-02 22:31 | XMS_ITS | Encounter Summary ---
Author Organization [facility] Address [address] [place] [address]. [place] [address] [place] [address] Care Team Providers Care Aircrewman Name Role Phone Jarred Fernández MD Primary Care Provider Unav ailable Reason for Visit * Reason Comments Abdominal Pain * Auth/Cert Specialty Diagnoses / Procedures Referred By Lyla t Referred To Contact Diagnoses Intractable abdominal pain Abdominal pain Referral ID Status Reason Start Date Expiration Date Visits Re quested Visits Authorized [id number] 1 1 Encounter Details Date Type Department Care Team (Late st Contact Info) Description 08/13/2019 12:30 PM CDT - 08/13/2019 5:46 PM CDT Surgery [facility] [place] [address] Mikayla Perez DO [address] [place] [address] [phone] DIAGNOSTIC LAPAROSCOPY, LYSIS OF ADHESIONS, RIGHT SALPINGECTOMY Surgery Details Date/Time Status Location OR Service Patient Class Case Cl ass Case Type Trauma Case? 08/13/2019 12:30 PM Posted [facility] OR OR 10 Gynecology Inpatient Urgent No Panel 1 Procedure LRB Anes Op Region Wound Class Comments DIAGNOSTIC LAPAROSCOPY, LYSI S OF ADHESIONS, RIGHT SALPINGECTOMY N/A General Abdomen Clean Cont aminated TRACHELECTOMY N/A General Vagina Clean Contaminat ed CYSTOSCOPY General Bladder Clean Contaminated Surgeon Surgeon Role Service Panel Heber, Mikayla S, DO Primary Gynecology 1 Special Needs PT IS IN ROOM 330 documented in this encounter Social History Tobacco [...] have Coronavirus / COVID-19? No / Unsure 08/11/2019 7:59 PM CDT documented as of this encounter Last Filed Vital Signs Vital Sign Reading Time Taken Comments Blood Pressure 168/99 08/13/2019 5:45 PM CDT Pulse 74 08/13/2019 5:45 PM CDT Temperature 37 ??C (98.6 ??F) 08/13/2019 4:45 PM CDT Respiratory Rate 14 08/13/2019 5:45 PM CDT Oxygen Saturation 99% 08/13/2019 5:45 PM CDT Inhaled Oxygen Concentration - - Weight 90.4 kg (199 lb 4.7 oz) 08/12/2019 3:00 A M CDT Height 167.6 cm (5' 6 ) 08/12/2019 3:00 AM CDT Body Mass Index 32.17 08/12/2019 3:00 AM CDT documented in this encounter Functional Status * Question Answer Date of Assessment Author Status Do you have serious difficulty walking or climbing stairs? No 08/12/2019 3:00 AM CDT Shelby Martinez RN Acti ve * Question Answer Date of Assessment Author Status Do you have difficulty dressing or bathing? Yes 08/12/2019 3:00 AM EMILEET Shelby Martinez RN Active Because of a physical, mental, or emotional condition, do you have difficulty doing errands alone such as visiting a doctor's office or shopping? Yes 08/12/2019 3:00 AM EMILEET Jacinta Martinez RN Active * RETIRED Are you deaf [...] Status Yes 08/12/2019 3:00 AM CDT TottyJacintaa A R N Active * Because of [...] AM CDT Shelby Martinez RN Active * Because of a physical, mental, or emotional condition, do you have serious difficulty concentrating, remembering, or making decisions? Answer Entry Date Author Status No 08/12/2019 3:00 AM CDT Shelby Martinez R N Active documented in this encounter Discharge Summaries * Erica Lomax NP - 08/14/2019 2:04 PM CDT Hospitalist Discharge Summary Patient ID: Lena Youngblood. female. 1970. Admit date: 08/11/2019 8:56 PM Discharge date and time: 08/14/19 Admitting Physician: Carline Bloom MD Primary Care Physician: JARRED FERNÁNDEZ MD Discharge Physician: ERICA LOMAX NP Discharge Diagnosis: Pelvic adhesions HPI:: Lena Youngblood is a 49-year-old female With past medical history significant for DM, HTN, and renal disorder, who presents today with complaints of RLQ abdominal pain that began ~2 months ago. This pain, per chart review, radiates into the patient's rectal area. The patient explains that this pain worsened significantly today and describes it as a 10/10 in severity. Additionally, she complains of some bowel issues, nausea, and two bouts of vomiting. The patient has underwent Robotic Assisted Sacrocolpopexy, cystoscopy in July 2018 and is reportedly scheduled for another procedure on 09/19/[address] Perez for diagnostic laparoscopy, cervical stump removal, cystoscopy. Per chartreview, the patient's pain is worsened during bowel movements. She reports that there last BM was ~4 days ago. She denies experiencing any fever, smoking, or EtOH use. In the ER patient required multiple doses of IV pain medication and patient was admitted for pain control. Consults: gynecology Discharge Exam: Filed Vitals: 08/14/19 0415 08/14/19 0548 08/14/19 0820 08/14/19 1239 BP: 123/75 114/69 114/65 117/67 Pulse: 85 77 76 Resp: Temp: 98.4 ??F (36.9 ??C) 98.5 ??F (36.9 ??C) TempSrc: Oral Oral SpO2: 99% 99% 99% Weight: Height: Physical Exam : -GENERAL: No acute distress, breathing comfortably on room air. -EYES: Extraocular movements intact -ENT: Neck supple, Septum is midline. -LUNG: Clear to auscultation bilaterally, No wheezes, No crackles -CVS: Regular rate rhythm, S1 and S2 normal, No murmurs, -ABDOMEN: Soft, nondistended,??RLQ??tender, Bowel sounds observed -EXT: no lower Ext edema. -NEURO: Alert, awake, oriented x3, No gross neuro deficit -SKIN: Skin color, texture, turgor normal. No rashes or lesions Code Status: Full Code Discharge Medications: Medication List ASK your doctor about these medications aspirin EC 81 MG tablet Commonly known as: ECOTRIN docusate sodium 100 MG capsule Commonly known as: COLACE Take 1 capsule (100 mg total) by mouth 2 (two) times daily. HumaLOG Mix 75/25 (75-25) 100 UNIT/ML Susp Generic drug: insulin lispro protamine-insulin lispro Take 55 units in AM and 50 units PM, this should be titrated depending on your blood sugar numbers. hydroCHLOROthiazide 25 MG tablet Commonly known as: HYDRODIURIL lisinopril 40 MG tablet Commonly known as: PRINIVIL metoprolol tartrate 50 MG tablet Commonly known as: LOPRESSOR simvastatin 40 MG tablet Commonly known as: ZOCOR Trulicity 1.5 MG/0.5ML Sopn Generic drug: Dulaglutide Imaging Ct Abd+pel W Con Result Date: 08/11/2019 EXAMINATION: CT Abdomen and Pelvis with contrast EXAM DATE/TIME: 08/11/2019 10:00 PM REASON FOR EXAM: RLQ pain, appendicitis suspected Right lower quadrant abdominal pain worsening today. Patient scheduled for prolapsed bladder procedure. COMPARISON: CT abdomen and pelvis 07/02/2019 TECHNIQUE: Axial CT images of the abdomen and pelvis are obtained following uneventful intravenous administration of 100 cc Isovue-370. Subsequent coronal and sagittal reformatted sequences are created for evaluation. A dose lowering technique was used for this procedure, which may include, but is not limited to, dose reduction technique, automated exposure control, iterative reconstruction, ALARA (As Low As Reasonably Achievable), or Image Gently techniques. FINDINGS: Minimal atelectasis in the left lung base. Lung bases otherwise clear. No pleural effusion. Heart size normal. No pericardial effusion. The liver and spleen are normal in size and surface contour. No abnormal enhancing hepatic lesions. High density layering in the gallbladder may be sludge or vicarious excretion of contrast. No further CT evidence of acute cholecystitis. Pancreas and adrenal glands unremarkable. Nonobstructing bilateral renal pelvic calcifications are noted. Stable chronic appearing right-sided hydronephrosis with normal caliber ureter suggesting UPJ obstruction. Abdominal aorta normal in caliberthroughout with mild atherosclerotic disease and calcifications. Bowel is normal in caliber throughout. No evidence of bowel obstruction. Interval increase in size of cystic changes of left ovary. Left ovary now measures up to 4.6 cm in greatest dimension. The appendix is normal. Bladder is somewhat distended with normal contours. Bone level imaging shows no acute osseous abnormalities. ===== IMPRESSION: ===== 1. No specific CT findings to explain right lower quadrant abdominal pain. Normalappendix. Stable chronic right hydronephrosis with normal caliber ureter. No bowel obstruction. 2. High density layering in the gallbladder may be sludge. No further CT evidence of acute cholecystitis. 3. Tiny nonobstructing bilateral renal pelvic calcifications similar to prior study. 4. Increasing size of multiple low density lesions in the left ovary now measuring up to 4.6 cm in greatest dimension. Follow-up outpatient pelvic ultrasound recommended to ensure resolution. Interpreted By: Sanchez Pate MD, 08/11/2019 10:41 PM HOSPITAL COURSE ASSESSMENT & PLAN Intractable abdominal pain:?? Presented with abdominal pain CT abdomen and pelvis showed increasing size of multiple low-density lesions in the left ovaries Patient was scheduled for diagnostic laparoscopy with Dr. Perez on September 19, 2019 NPO IV fluids, and antiemetics Pain control with narcotics, monitor for toxicity Bowel regimen for constipation TOOL GRINDING MACHINE OPERATOR consult, appreciate recommendations s/p laparoscopy per PROCESS OPERATOR with lysis of adhesions Discharge home to self care, follow up with PCP and PROCESS OPERATOR in 2 weeks ?? Constipation: Titrate bowel regimen Now having BMs HTN Holding hydrochlorothiazide Continue lisinopril and metoprolol Monitor and adjust as clinically warranted Now restarted home regimen ?? T2DM Maintained on trulicity, hold for now Accu-Cheks and sliding scale insulin for tight glycemic control ?? Dyslipidemia Continue statin ?? Hyponatremia Mild Resolved Disposition: home to self care Follow up: PCP, PROCESS OPERATOR Time Spent on Discharge 35 minutes Signed: ERICA LOMAX NP Cosigned by Soraya Sanz MD at 08/14/2019 3:48 PM CDT documented in this encounter Medications [...] s:Acute Pain < 7 Day Supply Take 1 tablet by mouth every 4 (four) hours as needed for Pain. Indications: Acute Pain < 7 Day Supply 10 tablet 08/14/2019 0 lisinopril 40 MG tablet Take 40 [...] 10/07/2018 1 documented as of this encounter Progress Notes * Mikayla Perez DO - 08/14/2019 7:39 AM CDT Daily Progress Note MIKAYLA PEREZ DO Urogyn Attending ID: Lena Youngblood is a 49-year-old female SUBJECTIVE Interval History Last 24 hours: Patient states that the pain that brought her into the hospital is gone. States the new pain is vaginal which would be consistent with postoperative given the procedures. She is tolerating a regular diet. Has not ambulated much since Yap catheter is still in place.Pain meds are controlling her postoperative pain. ROS: Negative except for postoperative pain. Medications: Scheduled Meds: ??? aspirin EC 81 mg Oral Daily ??? atorvastatin 20 mg Oral Daily ??? docusate sodium 100 mg Oral BID ??? heparin (porcine) 5,000 Units Subcutaneous 2 times per day ??? insulin lispro 0-14 Units Subcutaneous Q6H ??? lisinopril 40 mg Oral nightly ??? metoclopramide 10 mg Intravenous Q8H ??? metoprolol tartrate 50 mg Oral BID ??? polyethylene glycol 1 packet Oral BID ??? senna-docusate 1 tablet Oral BID Continuous Infusions: ??? lactated ringers Stopped (08/13/19 1602) ??? lactated ringers ??? lactated ringers ??? sodium chloride 100 mL/hr at 08/14/19 0113 PRN Meds: acetaminophen, bisacodyl, HYDROcodone-acetaminophen, HYDROcodone- acetaminophen, HYDROmorphone, magnesium hydroxide, xxfkhpjwi-pdlfrzhp-wlqpmivvoug, morphine, naLOXone, ondansetron, ondansetron, simethicone OBJECTIVE Vital signs in the last 24 hours: Temp: [98 ??F (36.7 ??C)-98.6 ??F (37 ??C)] 98.4 ??F (36.9 ??C) Pulse: [74-85] 85 Resp: [12-20] 20 BP: (106-174)/(59-101) 114/69 Intake/Output last 3 shifts: I/O last 3 completed shifts: In: 1865 [P.O.:100; I.V.:1615; IV Piggyback:150] Out: 1675 [Urine:1655; Blood:20] Intake/Output this shift: No intake/output data recorded. Today's Weight: Last Recorded Weight 08/12/19 0300 Weight: 90.4 kg (199 lb 4.7 oz) Yesterday's Weight: Wt Readings from Last 1 Encounters: 08/12/19 90.4 kg (199 lb 4.7 oz) Examination: GEN: Healthy appearing. No distress. Tired c/w narcotic postop meds. A&Ox3. ABD: soft, TTP c/w postop Vag: No active bleeding Extg: Neg Homans Skin: Incisions healing as expected Lines/Drains/Airway: Yap catheter draining with clear urine. Labs and Cultures: All labs have been reviewed. CBC Lab Results Component Value Date/Time WBC 12.0 (H) 08/14/2019 04:25 AM Lab Results Component Value Date/Time RBC 3.19 (L) 08/14/2019 04:25 AM Lab Results Component Value Date/Time HGB 9.8 (L) 08/14/2019 04:25 AM Lab Results Component Value Date/Time HCT 29.3 (L) 08/14/2019 04:25 AM ASSESSMENT Pelvic Pain s/p Diagnostic Laparoscopy w/ Right Salpingectomy, Lysis of Adhesions, Trachelectomy, Cystoscopy. PLAN: Preoperative pain is gone. Now has expected postoperative pain. Urine output borderline. Stable postop with no evidence of bleeding. Bladder scan normal. Ureters patent and diuresing well at conclusion of the procedure. Will give Lasix 10mg x 1 dose to diurese. Once urine output picks up then can DC Yap. Once urinating normally then can be discharged from a PROCESS OPERATOR standpoint. Recommend follow up in 2 weeks. Sooner if having any issues. Signed MIKAYLA PEREZ DO 08/14/2019 * Sandy Bell RN - 08/13/2019 6:36 PM CDT Problem: Discharge Planning Goal: Knowledge of discharge instructions Outcome: Progressing Problem: Constipation Goal: Bowel elimination within specified parameters Outcome: Progressing Note: Pt had BM yesterday. Problem: Fluid Volume - Imbalance Goal: Absence of imbalanced fluid volume signs and symptoms Outcome: Progressing Problem: Nutrition Deficit Goal: Adequate nutritional intake Outcome: Progressing Problem: Pain - Acute Goal: Achieve acceptable pain level Outcome: Progressing Note: Pt resting comfortably at this time. Problem: Safety Goal: Patient will be injury free during hospitalization Description Assess and monitor vitals signs, neurological status including level of consciousness and orientation. Assess patient's risk for falls and implement fall prevention plan of care and interventions perhospital policy. Ensure arm band on, uncluttered walking paths in room, adequate room lighting, call light and overbed table within reach, bed in low position, wheels locked, side rails up per policy, and non-skid footwear provided. Outcome: Progressing Problem: Daily Care Goal: Daily care needs are met Description Assess and monitor ability to perform self care and identify potential discharge needs. Outcome: Progressing Problem: Psychosocial Needs Goal: Demonstrates ability to cope with hospitalization/illness Description Assess and monitor patients ability to cope with his/her illness. Outcome: Progressing Goal: Collaborate with patient/family/caregiver to identify patient specific goals for this hospitalization Outcome: Progressing * Rosa Isela Lutz NP - 08/13/2019 9:39 AM CDT Hospitalist Progress Note Subjective Ms. Youngblood is resting comfortably in bed when evaluated. Pain improving. Now having BMs. More awake today. Reports nausea and early satiety. No chest pain, or shortness of breath. Plans for surgery today with PROCESS OPERATOR, NPO. Objective Blood pressure 139/81, pulse 75, temperature 98.4 ??F (36.9 ??C), temperature source Oral, resp. rate 18, height 5' 6 (1.676 m), weight 90.4 kg (199 lb 4.7 oz), SpO2 97 %, not currently . Intake/Output last 3 shifts: I/O last 3 completed shifts: In: - Out: 1500 [Urine:1500] ?? Physical Exam: -GENERAL: No acute distress, breathing comfortably on room air. -EYES: Extraocular movements intact -ENT: Neck supple, Septum is midline. -LUNG: Clear to auscultation bilaterally, No wheezes, No crackles -CVS: Regular rate rhythm, S1 and S2 normal, No murmurs, -ABDOMEN: Soft, nondistended, RLQ tender, Bowel sounds observed -EXT: no lower Ext edema. -NEURO: Alert, awake, oriented x3, No gross neuro deficit -SKIN: Skin color, texture, turgor normal. No rashes or lesions Diagnostic Data Ct Abd+pel W Con:?? Result Date: 08/11/2019 IMPRESSION: 1. No specific CT findings to explain right lower quadrant abdominal pain. Normal appendix. Stable chronic right hydronephrosis with normal caliber ureter. No bowel obstruction. 2. High density layering in the gallbladder may be sludge. No further CT evidence of acute cholecystitis. 3. Tiny nonobstructing bilateral renal pelvic calcifications similar to prior study. 4. Increasing size of multiple low density lesions in the left ovary now measuring up to 4.6 cm in greatest dimension. Follow-up outpatient pelvic ultrasound recommended to ensure resolution. Recent Labs Lab 08/11/19212808/13/19 0420 NA 134* 137 K 3.7 4.2 CL 100 106 CO2 30.2 26.6 AGAP 3.8* 4.4* BUN 20* 16 CR 1.09* 0.93 BUNCREATININ 18.3 17.2 GFRNON 60* 73* GFR 70* 84* GLU 220* 193* CA 9.4 8.3* Recent Labs Lab 08/11/19 2129 08/13/19 0420 WBC 11.9* 9.8 RBC 4.07* 3.61* HGB 12.5 11.0* HCT 36.6* 32.8* MCV 89.9 90.9 MCH 30.7 30.5 MCHC 34.2 33.5 PLT 288 267 RDW 12.4 12.4 MPV 10.9 11.2 PERNEU 66.9 58.6 PERLYM 27.5 34.4 PERMON 3.9 5.1 LYMC 3.27 3.36 MONOC 0.46 0.50 EOSC 0.09 0.11 BASOC 0.06 0.05 DTYPE AUTOMATED DIFFERENTIAL AUTOMATED DIFFERENTIAL Medication: ??? aspirin EC 81 mg Oral Daily ??? atorvastatin 20 mg Oral Daily ??? docusate sodium 100 mg Oral BID ??? heparin (porcine) 5,000 Units Subcutaneous 2 times per day ??? insulin lispro 0-14 Units Subcutaneous Q6H ??? lisinopril 40 mg Oral nightly ??? metoprolol tartrate 50 mg Oral BID ??? polyethylene glycol 1 packet Oral BID ??? Senna 8.6 mg Oral Daily ??? sodium chloride 100 mL/hr at 08/12/19 2326 acetaminophen, HYDROcodone-acetaminophen, magnesium hydroxide, morphine, ondansetron Assessment and Plan: Intractable abdominal pain:?? Presented with abdominal pain CT abdomen and pelvis showed increasing size of multiple low-density lesions in the left ovaries Patient was scheduled for diagnostic laparoscopy with Dr. Perez on September 19, 2019 NPO IV fluids, and antiemetics Pain control with narcotics, monitor for toxicity Bowel regimen for constipation TOOL GRINDING MACHINE OPERATOR consult, appreciate recommendations Plans for laparoscopy today per PROCESS OPERATOR Constipation: Titrate bowel regimen Now having BMs ?? Hypertension:?? Holding hydrochlorothiazide Continue lisinopril and metoprolol Monitor and adjust as clinically warranted ?? IDDM: ?? Maintained on trulicity, hold for now Accu-Cheks and sliding scale insulin for tight glycemic control ?? Dyslipidemia:?? Continue statin Hyponatremia: Mild, monitor VTE Prophylaxis: subcu heparin Code Status: Full code Cosigned by Soraya Sanz MD at 08/13/2019 3:05 PM CDT * Sandy Bell RN - 08/12/2019 6:25 PM CDT Problem: Discharge Planning Goal: Knowledge of discharge instructions 08/12/20191824 by Sandy Bell RN Outcome: Not Progressing 08/12/20191807 by Sandy Bell RN Outcome: Progressing Problem: Constipation Goal: Bowel elimination within specified parameters 08/12/20191824 by Sandy Bell RN Outcome: Progressing Note: Pt just had medium sized BM 08/12/20191807 by Sandy Bell RN Outcome: Not Progressing Problem: Fluid Volume - Imbalance Goal: Absence of imbalanced fluid volume signs and symptoms Outcome: Progressing Problem: Nutrition Deficit Goal: Adequate nutritional intake Outcome: Progressing Problem: Pain - Acute Goal: Achieve acceptable pain level Outcome: Progressing Note: Iv pain medication given throughtout shift with relief. Problem: Safety Goal: Patient will be injury free during hospitalization Description Assess and monitor vitals signs, neurological status including level of consciousness and orientation. Assess patient's risk for falls and implement fall prevention plan of care and interventions perhospital policy. Ensure arm band on, uncluttered walking paths in room, adequate room lighting, call light and overbed table within reach, bed in low position, wheels locked, side rails up per policy, and non-skid footwear provided. Outcome: Progressing Problem: Daily Care Goal: Daily care needs are met Description Assess and monitor ability to perform self care and identify potential discharge needs. Outcome: Progressing Problem: Psychosocial Needs Goal: Demonstrates ability to cope with hospitalization/illness Description Assess and monitor patients ability to cope with his/her illness. Outcome: Progressing * Spring Bray - 08/12/2019 5:16 PM CDT 08/12/19 5800 Clinical Encounter Type Visited With Patient;Spouse/significant other Total number in room 3 Routine Visit Initial visit;Assessment Plan of Care Care Plan Initiated Yes;Patient;Spouse/Significant other Spiritual care goals begin/continue to experience spiritual support in manner that is comfortable for them Spiritual Care interventions Spiritual care plan interventions Affirmed patient's attitude/actions in choosing life;Offered a listening/supportive presence for patient/family;Provide prayer/ritual/sacraments * Luis A Chicas RN - 08/12/2019 3:09 PM CDT 08/12/19 1506 Referral Data Referral Reason Discharge Planning Source of Information Patient;Other (Comment) (ATTENDING, SUPPORTABILITY ENGINEER Freddy LUTZ) Patient Information Primary Caregiver Self Support System Immediate family Baseline ADL's Living Arrangements Spouse/significant other;Children (, CALI AND 26YO ADULT DAUGHTER-ROSELIA MAC) Type of Residence Private residence Active DME Walker;Wheelchair (HAS 2 WW, MANUAL WC, BG & BP MONITOR AT HOME) Behavior Oriented Communication Talks;Understands speaking Anticipated DC Plan Living Arrangements Spouse/significant other;Children Support Systems Spouse/significant other;Children ( CALI & 26 YO DAUGHTER WHO LIVES W/PATIENT) Type of Residence Private residence Patient expects to be discharged to: Home RNCM met with patient for complete CM assessment; HIPAA; FULL NAME//ADDRESS CONFIRMED PER PATIENT. RESTING IN BED WITH , CALI, AT BEDSIDE [facility]ON [facility]AL. LIVING SITUATION: A & O, no communication issues. States she lives in [place] with her , Cali and her 26 year old daughter, Roselia Mac. 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 States her daughter or drive or help her at home as needed depending upon how she feels. States sometimes she uses her 2 wheeled walker around the house or a manual wheelchair when they go out if she is not feeling well and there is a lot of walking, ie: shopping. Denies homehealth or community care needs, stating her daughter helps here whenever needed. PCP: Jarred Fernández PHARMACY: [facility], denies financial concerns obtaining medications/supplies. INSURANCE: [facility] DCP: Plans to return home at discharge, her , Cali will be her ride home and her and daugther will be home to provide assistance as needed. NEEDS: Denies discharge concerns at this time. PROCESS OPERATOR consulted, she is waiting to see if they are rescheduling her networker surgery from 09/18 to a sooner date. NCM to follow and coordinate as needed based on treatment plan/recommendations. * Rosa Isela Lutz NP - 08/12/2019 9:41 AM CDT Hospitalist Progress Note Subjective Ms. Youngblood is resting comfortably in bed when evaluated. She is sleepy, but wakes to stimulation. She continues to have abdominal pain RLQ. Reports nausea and early satiety. No chest pain, or shortness of breath. Vomiting yesterday, none today. Objective Blood pressure 137/81, pulse 89, temperature 97.9 ??F (36.6 ??C), temperature source Oral, resp. rate 17, height 5' 6 (1.676 m), weight 90.4 kg (199 lb 4.7 oz), SpO2 100 %, not currently . Intake/Output last 3 shifts: I/O last 3 completed shifts: In: 500 [I.V.:500] Out: - ?? Physical Exam: -GENERAL: No acute distress, breathing comfortably on room air. -EYES: Extraocular movements intact -ENT: Neck supple, Septum is midline. -LUNG: Clear to auscultation bilaterally, No wheezes, No crackles -CVS: Regular rate rhythm, S1 and S2 normal, No murmurs, -ABDOMEN: Soft, nondistended, +ve tender, Bowel sounds observed -EXT: no lower Ext edema. -NEURO: Alert, awake, oriented x3, No gross neuro deficit -SKIN: Skin color, texture, turgor normal. No rashes or lesions Diagnostic Data Ct Abd+pel W Con:?? Result Date: 08/11/2019 IMPRESSION: 1. No specific CT findings to explain right lower quadrant abdominal pain. Normal appendix. Stable chronic right hydronephrosis with normal caliber ureter. No bowel obstruction. 2. High density layering in the gallbladder may be sludge. No further CT evidence of acute cholecystitis. 3. Tiny nonobstructing bilateral renal pelvic calcifications similar to prior study. 4. Increasing size of multiple low density lesions in the left ovary now measuring up to 4.6 cm in greatest dimension. Follow-up outpatient pelvic ultrasound recommended to ensure resolution. Recent Labs Lab 08/11/192128 NA 134* K 3.7 CL 100 CO2 30.2 AGAP 3.8* BUN 20* CR 1.09* BUNCREATININ 18.3 GFRNON 60* GFR 70* GLU 220* CA 9.4 Recent Labs Lab 08/11/192128 WBC 11.9* RBC 4.07* HGB 12.5 HCT 36.6* MCV 89.9 MCH 30.7 MCHC 34.2 PLT 288 RDW 12.4 MPV 10.9 PERNEU 66.9 PERLYM 27.5 PERMON 3.9 LYMC 3.27 MONOC 0.46 EOSC 0.09 BASOC 0.06 DTYPE AUTOMATED DIFFERENTIAL Medication: ??? aspirin EC 81 mg Oral Daily ??? atorvastatin 20 mg Oral Daily ??? docusate sodium 100 mg Oral BID ??? insulin lispro 0-14 Units Subcutaneous Q6H ??? lisinopril 40 mg Oral nightly ??? metoprolol tartrate 50 mg Oral BID ??? polyethylene glycol 1 packet Oral BID ??? Senna 8.6 mg Oral Daily ??? sodium chloride 100 mL/hr at 08/12/19 0414 acetaminophen, HYDROcodone-acetaminophen, magnesium hydroxide, morphine Assessment and Plan: Intractable abdominal pain:?? Presented with abdominal pain CT abdomen and pelvis showed increasing size of multiple low-density lesions in the left ovaries Patient was scheduled for diagnostic laparoscopy with Dr. 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 Hypertension:?? Holding hydrochlorothiazide Continue lisinopril and metoprolol Monitor and adjust as clinically warranted ?? IDDM: ?? Maintained on trulicity, hold for now Accu-Cheks and sliding scale insulin for tight glycemic control ?? Dyslipidemia:?? Continue statin Hyponatremia: Mild, monitor VTE Prophylaxis: SCDs to start Code Status: Full code Cosigned by Soraya Sanz MD at 08/12/2019 4:12 PM CDT * Shelby Martinez RN - 08/12/2019 5:11 AM CDT Problem: Constipation Goal: Bowel elimination within specified parameters Outcome: Not Progressing Problem: Discharge Planning Goal: Knowledge of discharge instructions Outcome: Progressing Problem: Fluid Volume - Imbalance Goal: Absence of imbalanced fluid volume signs and symptoms Outcome: Progressing Problem: Nutrition Deficit Goal: Adequate nutritional intake Outcome: Progressing Problem: Pain - Acute Goal: Achieve acceptable pain level Outcome: Progressing Problem: Safety Goal: Patient will be injury free during hospitalization Description Assess and monitor vitals signs, neurological status including level of consciousness and orientation. Assess patient's risk for falls and implement fall prevention plan of care and interventions perhospital policy. Ensure arm band on, uncluttered walking paths in room, adequate room lighting, call light and overbed table within reach, bed in low position, wheels locked, side rails up per policy, and non-skid footwear provided. Outcome: Progressing Note: Patient cooperative with bed alarm and agrees to contact staff prior to exiting bed. 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 Problem: Daily Care Goal: Daily care needs are met Description Assess and monitor ability to perform self care and identify potential discharge needs. Outcome: Progressing Problem: Psychosocial Needs Goal: Demonstrates ability to cope with hospitalization/illness Description Assess and monitor patients ability to cope with his/her illness. Outcome: Progressing Goal: Collaborate with patient/family/caregiver to identify patient specific goals for this hospitalization Outcome: Progressing documented in this encounter H&P Notes * Mikayla Perez DO - 08/13/2019 12:32 PM CDT Lena Youngblood Date of Service: 08/13/2019 CHIEF COMPLAINT: Chief Complaint Patient presents with ??? Abdominal Pain HPI: .Lena Youngblood is a 49-year-old female who presents to the hospital with abdominal pain that has been present for several months and progressively worsening. She has been seen in the ER several times and CT scans have not explained her pain. She has also had Pelvic ultrasounds which also has not explained the pain. Exam in the office only significant for pain reproduced with manipulationof the cervix. She has a history of Robotic-assisted Laparoscopic Sacrcocolpopexy with Dr. Hair in [place] in 2019. She states issues with BMs since that time. SureSwab in clinic shows only BV and she has been treated. She was scheduled for the below surgeries to be done July, but will do now given readmission to the ER with worsening pain. Understands if we find source for her pain with the diagnostic laparoscopy then may not do the trachelectomy. Procedures will depend on findings. She was counseled to the procedures. She verbalizes understanding and gives consent. PMH: Past Medical History: Diagnosis Date ??? Arthritis ??? Charcot foot due to diabetes mellitus (CMS/HCC) LEFT FOOT ??? Diabetes mellitus (CMS/HCC) ??? Diabetic neuropathy (CMS/HCC) ??? Hypertension ??? Renal disorder ??? UTI (urinary tract infection) PSH: Past Surgical History: Procedure Laterality Date ??? 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 EYE SURGERY ??? FRACTURE SURGERY ??? HYSTERECTOMY ??? RETINAL DETACHMENT SURGERY Right MEDS: Current: ??? aspirin EC 81 mg Oral Daily ??? atorvastatin 20 mg Oral Daily ??? clindamycin 600 mg Intravenous Manager Port to OR ??? docusate sodium 100 mg Oral BID ??? gentamicin 120 mg Intravenous Manager Port to OR ??? heparin (porcine) 5,000 Units Subcutaneous 2 times per day ??? insulin lispro 0-14 Units Subcutaneous Q6H ??? lisinopril 40 mg Oral nightly ??? metoprolol tartrate 50 mg Oral BID ??? polyethylene glycol 1 packet Oral BID ??? Senna 8.6 mg Oral Daily Prior to Admission medications Medication Sig Start Date End Date Taking? Authorizing Provider aspirin EC 81 MG tablet Take 81 mg by mouth daily. 01/22/19 01/22/20 Yes Doc Abstract docusate sodium 100 MG capsule [...] 7 days. INJECT ON Sunday10/07/18 Doc Abstract Allergies Allergen Reactions ??? Amoxicillin Rash ??? Penicillins Rash Social History Socioeconomic History ??? Marital status: [...] file Gets together: Not on file Attends mandaeism service: Not on file Active member of [...] ??? Diabetes Mother ??? Heart Attack Father REVIEW OF SYSTEMS: Review of Systems PHYSICAL EXAM: Vitals: 08/13/19 0422 BP: 139/81 Pulse: 75 Resp: 18 Temp: 98.4 ??F (36.9 ??C) SpO2: 97% Body mass index is 32.17 kg/m??. Physical Exam LABS: I have personally reviewed the labs. Labs: Lab Results Component Value Date NA 137 08/13/2019 K 4.2 08/13/2019 CL 106 08/13/2019 CO2 26.6 08/13/2019 AGAP 4.4 (L) 08/13/2019 BUN 16 08/13/2019 CR 0.93 08/13/2019 CR 1.09 (H) 08/11/2019 CR 1.00 07/02/2019 GLU 193 (H) 08/13/2019 CA 8.3 (L) 08/13/2019 Lab Results Component Value Date WBC 9.8 08/13/2019 WBC 11.9 (H) 08/11/2019 WBC 9.4 07/02/2019 HGB 11.0 (L) 08/13/2019 HGB 12.5 08/11/2019 HGB 11.8 (L) 07/02/2019 PLT 267 08/13/2019 PLT 288 08/11/2019 PLT 269 07/02/2019 Lab Results Component Value Date ALT 18 08/13/2019 ALT 22 08/11/2019 ALT 31 05/01/2019 TBIL 0.3 08/13/2019 TBIL 0.4 08/11/2019 TBIL 0.2 05/01/2019 ALKP 109 08/13/2019 ALKP 127 08/11/2019 ALKP 136 05/01/2019 IMAGING: EXAMINATION: CT Abdomen and Pelvis with contrast EXAM DATE/TIME: 08/11/2019 10:00 PM REASON FOR EXAM: RLQ pain, appendicitis suspected Right lower quadrant abdominal pain worsening today. Patient scheduled for prolapsed bladder procedure. COMPARISON: CT abdomen and pelvis 07/02/2019 TECHNIQUE: Axial CT images of the abdomen and pelvis are obtained following uneventful intravenous administration of 100 cc Isovue-370. Subsequent coronal and sagittal reformatted sequences are created for evaluation. A dose lowering technique was used for this procedure, which may include, but is not limited to, dose reduction technique, automated exposure control, iterative reconstruction, ALARA (As Low As Reasonably Achievable), or Image Gently techniques. FINDINGS: Minimal atelectasis in the left lung base. Lung bases otherwise clear. No pleural effusion. Heart size normal. No pericardial effusion. The liver and spleen are normal in size and surface contour. No abnormal enhancing hepatic lesions.High density layering in the gallbladder may be sludge or vicarious excretion of contrast. No further CT evidence of acute cholecystitis. Pancreas and adrenal glands unremarkable. Nonobstructing bilat eral renal pelvic calcifications are noted. Stable chronic appearing right-sided hydronephrosis with normal caliber ureter suggesting UPJ obstruction. Abdominal aorta normal in caliber throughout with mild atherosclerotic disease and calcifications. Bowel is normal in caliber throughout. No evidence of bowel obstruction. Interval increase in size of cystic changes of left ovary. Left ovary now measures up to 4.6 cm in greatest dimension. The appendix is normal. Bladder is somewhat distended with normal contours. Bone level imaging shows no acute osseous abnormalities. ===== ?? IMPRESSION: ===== 1. No specific CT findings to explain right lower quadrant abdominal pain. Normal appendix. Stable chronic right hydronephrosis with normal caliber ureter. No bowel obstruction. 2. High density layering in the gallbladder may be sludge. No further CT evidence of acute cholecystitis. 3. Tiny nonobstructing bilateral renal pelvic calcifications similar to prior study. 4. Increasing size of multiple low density lesions in the left ovary now measuring up to 4.6 cm in greatest dimension. Follow-up outpatient pelvic ultrasound recommended to ensure resolution. IMPRESSION: Principal Problem: Abdominal pain SNOMED CT(R): ABDOMINAL PAIN Pelvic Pain PLAN: Diagnostic Laparoscopy, Cystoscoopy, Trachelectomy. MIKAYLA PEREZ DO 08/13/2019 * Carline Bloom MD - 08/12/2019 3:17 AM CDT Hospitalist History and Physical Patient: Lena Youngblood Date: 08/12/2019 female, 49-year-old Admit Date: 08/11/2019 Attending: Carline Bloom MD REASON FOR ADMISSION: Abdominal pain HISTORY OF PRESENT ILLNESS: Lena Youngblood is a 49-year-old female With past medical history significant for DM, HTN, and renal disorder, who presents today with complaints of RLQ abdominal pain that began ~2 months ago. This pain, per chart review, radiates into the patient's rectal area. The patient explains that this pain worsened significantly today and describes it as a 10/10 in severity. Additionally, she complainsof some bowel issues, nausea, and two bouts of vomiting. The patient has underwent Robotic AssistedSacrocolpopexy, cystoscopy in July 2018 and is reportedly scheduled for another procedure on 09/19/[address] Perez for diagnostic laparoscopy, cervical stump removal, cystoscopy. Per chart review, the patient's pain is worsened during bowel movements. She reports that there last BM was ~4 daysago. She denies experiencing any fever, smoking, or EtOH use. In the ER patient required multiple doses of IV pain medication and patient was admitted for pain control. Allergy Allergies Allergen Reactions ??? Amoxicillin Rash ??? Penicillins Rash Medication list Medications Prior to Admission Medication Sig Dispense Refill ??? aspirin EC 81 MG tablet Take 81 mg by mouth daily. ??? docusate sodium 100 MG capsule Take 1 capsule (100 mg total) by mouth 2 (two) times daily. 30 capsule 0 ??? HUMALOG MIX 75/25 [...] 2 (two) times a day. 3 ??? simvastatin 40 MG tablet Take 40 mg by mouth nightly at bedtime. ??? TRULICITY 1.5 MG/0.5ML Solution Pen-injector Inject 1.5 mg into the skin every 7 days. INJECT ON Sunday No current facility-administered medications on file prior to encounter. Current Outpatient Medications on File Prior to Encounter Medication Sig Dispense Refill ??? aspirin EC 81 MG tablet Take 81 mg by mouth daily. ??? docusate sodium 100 MG capsule Take 1 capsule (100 mg total) by mouth 2 (two) times daily. 30 capsule 0 ??? HUMALOG MIX 75/25 [...] 2 (two) times a day. 3 ??? simvastatin 40 MG tablet Take 40 mg by mouth nightly at bedtime. ??? TRULICITY 1.5 MG/0.5ML Solution Pen-injector Inject 1.5 mg into the skin every 7 days. INJECT ON Sunday Past Medical History Past Medical History: Diagnosis Date ??? Arthritis ??? Charcot foot due to diabetes mellitus (CMS/HCC) LEFT FOOT ??? Diabetes mellitus (CMS/HCC) ??? Diabetic neuropathy (CMS/HCC) ??? Hypertension ??? Renal disorder ??? UTI (urinary tract infection) Past Surgical History: Procedure Laterality Date ??? 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 EYE SURGERY ??? FRACTURE SURGERY ??? HYSTERECTOMY ??? RETINAL DETACHMENT SURGERY Right Social History [...] file Gets together: Not on file Attends mandaeism service: Not on file Active member of [...] ??? Diabetes Mother ??? Heart Attack Father REVIEW OF SYSTEMS: A 14 point review of systems was taken and pertinent positive as per HPI PHYSICAL EXAMINATION: Vital 24 Hour Range Most Recent Value Temperature Temp Min: 97.2 ??F (36.2 ??C) Max: 97.9 ??F (36.6 ??C) 97.9 ??F (36.6 ??C) Pulse Pulse Min: 88 Max: 96 88 Respiratory Resp Min: 18 Max: 20 20 Blood Pressure BP Min: 140/82 Max: 155/104 140/82 Pulse Oximetry SpO2 Min: 99 % Max: 100 % 99 % O2 No data recorded Vital Most Recent Value First Value Weight 90.4 kg (199 lb 4.7 oz) Weight: 90.3 kg (199 lb 1.6 oz) Height 5' 6 (167.6 cm) Height: 5' 6 (167.6 cm) BMI 32.2 N/A Physical Exam: -GENERAL: No acute distress, breathing comfortably on room air. -EYES: Extraocular movements intact -ENT: Neck supple, Septum is midline. -LUNG: Clear to auscultation bilaterally, No wheezes, No crackles -CVS: Regular rate rhythm, S1 and S2 normal, No murmurs, -ABDOMEN: Soft, nondistended, +ve tender, Bowel sounds observed -EXT: no lower Ext edema. -NEURO: Alert, awake, oriented x3, No gross neuro deficit -SKIN: Skin color, texture, turgor normal. No rashes or lesions Intake/Output last 3 shifts: I/O last 3 completed shifts: In: 500 [I.V.:500] Out: - Labs: Recent Labs Lab 08/11/192128 NA 134* K 3.7 CL 100 CO2 30.2 AGAP 3.8* BUN 20* CR 1.09* BUNCREATININ 18.3 GFRNON 60* GFR 70* GLU 220* CA 9.4 MAGNESIUM 1.6* Recent Labs Lab 08/11/192128 WBC 11.9* RBC 4.07* HGB 12.5 HCT 36.6* MCV 89.9 MCH 30.7 MCHC 34.2 PLT 288 RDW 12.4 MPV 10.9 Recent Labs Lab 08/11/192128 AST 14* ALT 22 No results for input(s): INR, PTT in the last 168 hours. Invalid input(s): ABG arterial blood gases No results for input(s): TROP, TROPIWB, CPK in the last 168 hours. Invalid input(s): CK-MB No results for input(s): PH, PCO2, PO2, [id number], BICARBWB, BASEDEFICIT, BASEEXCESS in the auet995 hours. Imagining & Other Studies Ct Abd+pel W Con: Result Date: 08/11/2019 IMPRESSION: 1. No specific CT findings to explain right lower quadrant abdominal pain. Normal appendix. Stable chronic right hydronephrosis with normal caliber ureter. No bowel obstruction. 2. High density layering in the gallbladder may be sludge. No further CT evidence of acute cholecystitis. 3. Tiny nonobstructing bilateral renal pelvic calcifications similar to prior study. 4. Increasing size of multiple low density lesions in the left ovary now measuring up to 4.6 cm in greatest dimension.Follow-up outpatient pelvic ultrasound recommended to ensure resolution. No results found for this visit on 08/11/19. Assessment & Plan Intractable abdominal pain: Patient admitted to the medical floor CT abdomen and pelvis showed increasing size of multiple low-density lesions in the left ovaries Patient scheduled for diagnostic laparoscopy with Dr. Perez on September 19, 2019 Keep patient n.p.o. 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 History of Robotic Sacrocolpopexy of cervical stump 05/2018 due to prolapse after supracervical hysterectomy in 2005. For approximately 4-5 months she has had RLQ pain. Pain is constant and cramping in nature. Radiates to her lower back/rectal area. She will have acute exacerbations of her pain and has had multiple ER visits and CT scans toevaluate. She reports regular BMs prior to her sacrocolpopexy after which she has had chronic constipation and sometimes requries her to manually disimpact her. States her stools will be likea brick . Prior to admission her last BM was 08/06. 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 Arthritis ??? Charcot foot due to diabetes mellitus (CMS/HCC) LEFT FOOT ??? Diabetes mellitus (CMS/HCC) ??? Diabetic neuropathy (CMS/HCC) ??? Hypertension ??? Renal disorder ??? UTI (urinary tract infection) Past Surgical History: Procedure Laterality Date ??? 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 EYE SURGERY ??? FRACTURE SURGERY ??? HYSTERECTOMY ??? RETINAL DETACHMENT SURGERY Right Social History Tobacco Use ??? Smoking status: Never Smoker ??? Smokeless tobacco: Never Used Substance Use Topics ??? Alcohol use: No Family History Problem Relation Name Age of Onset ??? Diabetes Mother ??? Heart Attack Father Medications Prior to Admission Medication Sig Dispense Refill ??? aspirin EC 81 MG tablet Take 81 mg by mouth daily. ??? docusate sodium 100 MG capsule Take 1 capsule (100 mg total) by mouth 2 (two) times daily. 30 capsule 0 ??? HUMALOG MIX 75/25 [...] 2 (two) times a day. 3 ??? simvastatin 40 MG tablet Take 40 mg by mouth nightly at bedtime. ??? TRULICITY 1.5 MG/0.5ML Solution Pen-injector Inject 1.5 mg into the skin every 7 days. INJECT ON SUNDAY 0 Allergies Allergen Reactions ??? Amoxicillin Rash ??? Penicillins Rash Review of systems: Review of Systems Constitutional: Negative for chills and fever. Respiratory: Negative for shortness of breath. Cardiovascular: Negative for chest pain. Gastrointestinal: Positive for abdominal pain, constipation, nausea and vomiting. Musculoskeletal: Positive for back pain. Physical Exam: .vs Filed Vitals: 08/11/19 2004 08/12/19 0000 08/12/19 0300 08/12/19 0622 BP: (!) 146/114 (!) 155/104 140/82 137/81 Pulse: 96 88 89 Resp: 18 Temp: 97.2 ??F (36.2 ??C) 97.9 ??F (36.6 ??C) 97.9 ??F (36.6 ??C) TempSrc: Temporal Oral Oral SpO2: 100% 99% 99% 100% Weight: 90.3 kg (199 lb 1.6 oz) 90.4 kg (199 lb 4.7 oz) Height: 5' 6 (1.676 m) 5' 6 (1.676 m) Gen: No acute distress, resting comfortably in bed Heart: Regular Rate Lungs: Non-labored respirations Abd: Soft, Tender to palpation in RLQ, no r/g Labs: Results for orders placed or performed during the hospital encounter of 08/11/19 CBC W/DIFF AUTOMATED Result Value Ref Range WBC 11.9 (H) 4.5 - 11.0 x10'3/uL RBC 4.07 (L) 4.20 - 5.40 x10'6/uL HGB 12.5 12.0 - 16.0 G/DL HCT 36.6 (L) 38.0 - 48.0 % MCV 89.9 80.0 - 94.0 FL MCH 30.7 27.0 - 31.0 PG MCHC 34.2 32.0 - 36.0 G/DL RDW 12.4 11.5 - 14.5 % PLT 288 130 - 400 x10'3/uL MPV 10.9 9.3 - 12.2 FL DIFFERENTIAL TYPE AUTOMATED DIFFERENTIAL NEUTROPHILS 66.9 % LYMPHOCYTES 27.5 % MONOCYTES 3.9 % EOSINOPHILS 0.8 % BASOPHILS 0.5 % IMMATURE GRANS 0.4 % ABS. NEUTROPHILS TOTAL 7.97 (H) 1.80 - 7.70 x10'3/uL ABS. LYMPHOCYTES 3.27 1.00 - 4.80 x10'3/uL ABS. MONOCYTES 0.46 0.24 - 0.86 x10'3/uL ABS. EOSINOPHILS 0.09 0.04 - 0.36 x10'3/uL ABS. BASOPHILS 0.06 0.01 - 0.08 x10'3/uL ABS. IMMATURE GRANULOCYTES 0.05 0.00 - 0.49 x10'3/uL COMPREHENSIVE METABOLIC PANEL Result Value Ref Range GLUCOSE 220 (H) 70 - 99 MG/DL BUN 20 (H) 7 - 18 MG/DL CREATININE S/P/B 1.09 (H) 0.55 - 1.02 MG/DL SODIUM 134 (L) 136 - 145 MMOL/L POTASSIUM 3.7 3.5 - 5.1 MMOL/L CHLORIDE S/P/B 100 100 - 108 MMOL/L CO2 30.2 21 - 32 MMOL/L CALCIUM 9.4 8.5 - 10.1 MG/DL BILIRUBIN TOTAL S/P/B 0.4 0.2 - 1.2 MG/DL TOTAL PROTEIN S/P/B 9.4 (H) 6.4 - 8.2 G/DL ALBUMIN S/P/B 3.6 3.4 - 5.0 G/DL AST 14 (L) 15 - 37 U/L ALT 22 14 - 55 U/L ALKALINE PHOSPHATASE S/P/B 127 50 - 136 U/L ANION GAP 3.8 (L) 5 - 15 MMOL/L BUN CREATININE RATIO 18.3 6 - 26 A/G RATIO 0.6 (L) 1.0 - 2.0 RATIO eGFR Non-Afr. Amer. 60 (L) >90 ML/MIN/1.73 M2 eGFR Afr. Amer. 70 (L) >90 ML/MIN/1.73 M2 LIPASE Result Value Ref Range LIPASE 113 73 - 393 UNITS/L URINALYSIS, AUTO, COMPLETE Result Value Ref Range Specimen Type URINE CLEAN CATCH COLOR (U) LIGHT YELLOW TRANSPARENCY CLEAR Specific [place] (U) 1.024 1.001 - 1.030 U PH [...] /HPF SQUAMOUS EPITHELIALS RARE /HPF LACTIC ACID Result Value Ref Range LACTIC ACID 1.2 0.4 - 2.0 MMOL/L MAGNESIUM Result Value Ref Range MAGNESIUM 1.6 (L) 1.8 - 2.4 MG/DL POCT glucose Result Value Ref Range GLUCOSE POC 160 (H) 70 - 99 mg/dL POCT glucose Result Value Ref Range GLUCOSE POC 148 (H) 70 - 99 mg/dL CULTURE, BACTERIA, BLOOD Result Value Ref Range Spec. Description BLOOD Special Requests: HAND,RIGHT Culture Result: NO GROWTH 1 DAY CULTURE, BACTERIA, BLOOD Result Value Ref Range Spec. Description BLOOD Special Requests: LAC Culture Result: NO GROWTH 1 DAY Imaging: IMPRESSION: ===== 1. No specific CT findings to explain right lower quadrant abdominal pain. Normal appendix. Stable chronic right hydronephrosis with normal caliber ureter. No bowel obstruction. 2. High density layering in the gallbladder may be sludge. No further CT evidence of acute cholecystitis. 3. Tiny nonobstructing bilateral renal pelvic calcifications similar to prior study. 4. Increasing size of multiple low density lesions in the left ovary now measuring up to 4.6 cm in greatest dimension. Follow-up outpatient pelvic ultrasound recommended to ensure resolution. Assessment: 49 yo with history of sacrocolpopexy of cervical stump in 05/2018 by a urogynecologist in [place] now with chronic constipation and RLQ pain, admitted for acute exacerbation of pain. She has been seen and evaluated by our Urogynecologist Dr. Perez in the office multiple times and is currently sc heduled for Diagnostic laparoscopy and Trachelectomy on 09/19/19. Pain of unclear etiology. She seems to have a lot of chronic constipation issues which is likely contributing to or exacerbating her pain. Her mesh and/or adhesive disease from her surgery may be contributing her constipation and pain, but this is unclear. Historically in the office manipulation ofher cervix has elicited a lot of pain. Plan: RLQ pain - Recommend bowel regimen to reduce stool burden/constipation Pain control per primary team Patient is scheduled for surgery with Dr. Perez on 09/18. Will coordinate with him to see if we can move up her surgery Left ovarian cyst - noted on CT scan - patient had normal left ovary on ultrasound in office 07/28/19, this is likely physiologic and of no clinical significance KIRIT HARDING MD documented in this encounter Nursing Notes * Ashanti Amor RN - 08/14/2019 3:35 AM CDT Pt with minimal urine output this shift. Has been putting out about 100ml over 4 hour, straw/clear.VSS. Bladder scan did not reveal any urine in bladder. IV fluids infusing, encouraged pt to continue drinking PO fluids. Orders to pull yap only if urine output greater than 150 ml over 4 hr. Will continue to monitor. Ashanti Amor RN * Arelis Michael RN - 08/13/2019 1:49 PM CDT Called patient's , Cali, at the beginning of case to update him. Patient's updated at 1453. * Harini Mcneal RN - 08/13/2019 12:00 PM CDT Hibiclens showers taken at home x 2, Pt clipped on arrival to OPS, then 30 minutes later pt wiped with CHG cloths per protocol. Betadine swabs x 2 placed in bilateral nares per RN, pt tolerated well. Patient informed this nurse that they have self isolated at home since their covid testing was done. documented in this encounter OR Notes * Op Note - Mikayla Perez DO - 08/14/2019 5:54 PM CDT [facility] Op Note ?? Lena Youngblood Inpatient: 08/11/2019 - 08/13/2019 Procedure date: 08/13/2019 1230 ?? Pre-Op Diagnosis: PELVIC PAIN ?? Post-Op Diagnosis: 1. Pelvic Pain 2. Pelvic Adhesions 3. Cervical stump prolapse 4. Right paratubal cyst (right fallopian tube) ?? Procedure(s) (LRB): DIAGNOSTIC LAPAROSCOPY, LYSIS OF ADHESIONS, RIGHT SALPINGECTOMY (N/A) TRACHELECTOMY (N/A) CYSTOSCOPY Surgeon(s): Mikayla Perez DO ?? Snuff Packing Machine Operator: Plant Pathology Teacher: Kalyn L White, PROTECTIVE SERVICE SPECIALIST ?? Anesthesia: General ?? Findings: Adhesions of right ovary to the vaginal cuff on the right. The ovary was stretched ovary the right pelvic side wall and down to the right vaginal cuff. Omental adhesions to right mid abdomen consistent with prior trocar site. Large bowel adhesions to right mid and upper abdomen. Right paratubal cyst removed with right fallopian tube (ruptured during removal - clear fluid). Cervical stump prolapse. Vaginal cuff well supported. Normal appearing bladder mucosa with patent ureters. ?? Estimated Blood Loss: 10 ml IVF: 1000 ml UO: 1400 ml ?? Specimens: ID Type Source Tests Collected by Time A : cervix TISSUE CERVIX PATHOLOGY Mikayla Perez, DO 08/13/2019 1516 B : TISSUE FALLOPIAN TUBE, RIGHT PATHOLOGY Mikayla Perez, DO 08/13/2019 1534 ? Indication: 49 yo with progressively worsening pelvic pain. Has been to the ER multiple times. CT scans and pelvic ultrasound have not revealed a source. On exam the only thing that reproduces her pain is manipulation of her cervix. However, she also states holds her right lower abdomen which wouldbe too far away from her cervix. Given her prior sacrocolpopexy there is concern regarding the meshused in the procedure as there are time where it works its way through the peritoneum leaving a bridge which could entrap bowel. She was scheduled for the above procedures in the coming weeks, but asked to address now during this hospital admission for this pain. Counseled to options and wanted to proceed with the procedures above. Counseled to the procedures. She verbalized understanding and gave consent.? Description of the procedures:??Patient was taken to the operating room where general endotracheal tube anesthesia was performed and found to be adequate. She was prepped and draped in the usual sterile fashion in the high??lithotomy position using the Adam stirrups. A time out was performed.??A Yap catheter was placed. ?? The location for camera placement was injected with 1% Lidocaine. An incision was made supraumbilically and a 5 mm trocar was placed under direct visualization with an optiport. CO2 gas was instilled. A survey of abdomen revealed the findings noted above. Lateral port locations were injected with 1% Lidocaine and 5mm trocars were placed under direct visualization. A blunt probe was used to explore the pelvis. The findings are noted above. There was no mesh coming through the peritoneum. The abdominal adhesions were taken down sharply. The ovary was freed up from the vaginal cuff using blunt and sharp dissection. The right fallopian tube and paratubal cyst was removed using the Ligasure. The right fallopian tube was removed through the port. The small cyst ruptured during removal and had clear straw-colored fluid consistent with a benign cyst. The tube and cyst were sent together to pathology for review. A weighted speculum was placed. The cervix was mildly prolapse. It was grasped with 2 single tooth tenaculums. It was infiltrated with pitressin solution and cut circumferentially. Romulo clamps weremarched up each side of the cervix until it was removed. Each pedicle was tied with 0 Vicryl suture. There was no mesh attached directly to the cervical stump and none was seen on excision. The mesh could be palpated just beyond the field of dissection and supported the vaginal cuff well. The vaginal cuff was closed with 0 Vicryl in a running, locking fashion transversely. ?? A cystoscopy was??performed using a 70 degree cystoscope. There were no bladder mucosal lesions or injury. Both ureters were noted to be patent. The cystoscope was removed. A Yap catheter was placed. ? The vagina was irrigated. All was hemostatic. The patient tolerated the procedure well. Sponge, lap, instrument and needle counts were correct x 2. The patient was taken to the recovery room in stable condition.?? MIKAYLA PEREZ DO * Brief Op Note - Mikayla Perez DO - 08/13/2019 4:00 PM CDT [facility] Brief Op Note Lena Youngblood Inpatient: 08/11/2019 - 08/13/2019 Procedure date: 08/13/2019 1230 Pre-Op Diagnosis: PELVIC PAIN Post-Op Diagnosis: 1. Pelvic Pain 2. Pelvic Adhesions 3. Cervical stump prolapse 4. Right paratubal cyst (right fallopian tube) Procedure(s) (LRB): DIAGNOSTIC LAPAROSCOPY, LYSIS OF ADHESIONS, RIGHT SALPINGECTOMY (N/A) TRACHELECTOMY (N/A) CYSTOSCOPY Surgeon(s): Mikayla Perez DO Snuff Packing Machine Operator: Plant Pathology Teacher: RENAE Oropeza Anesthesia: General Findings: Adhesions of right ovary to the vaginal cuff on the right. The ovary was stretched ovary the right pelvic side wall and down to the right vaginal cuff. Omental adhesions to right mid abdomen consistent with prior trocar site. Large bowel adhesions to right mid and upper abdomen. Right paratubal cyst removed with right fallopian tube (ruptured during removal - clear fluid). Cervical stump prolapse. Vaginal cuff well supported. Normal appearing bladder mucosa with patent ureters. Estimated Blood Loss: 10 ml IVF: 1000 ml UO: 1400 ml Specimens: ID Type Source Tests Collected by Time A : cervix TISSUE CERVIX PATHOLOGY Mikayla Perez DO 08/13/2019 1516 B : TISSUE FALLOPIAN TUBE, RIGHT PATHOLOGY Mikayla Perez DO 08/13/2019 1534 MIKAYLA PEREZ DO Date: 08/13/2019 Time: 4:01 PM documented in this encounter ED Notes * Christ Coombs MD - 08/12/2019 1:55 AM CDT Chief Complaint Chief Complaint Patient presents with ??? Abdominal Pain History of Present Illness The patient is a very pleasant 41-year-old female examined the emergency department bed #16. She presents today complaining of right lower abdominal pain. This radiates into her rectum. According to the patient, she is undergone multiple surgical procedures that have left her with rectal pain that radiates to her vagina when she has a bowel movement. She states that she has not had a bowel movement in 4 days, and presents now with right lower quadrant abdominal pain. This pain is inferior and medial to McBurney's point. No clear palliative factors are identified. Possibly provoked by constipation. Quality is as described above. There is radiation as described above. Severity is moderate. Time course constant since onset. Medical History ALLERGIES: Allergies Allergen Reactions ??? [...] fevers, chills, or sweats. Complains of nausea, denies vomiting, or diarrhea, complains of constipation, and abdominal pain. Denies chest pain, shortness of breath, dyspnea on exertion, or palpitations. Denies headache, loss of consciousness, or seizures. Denies dysuria or hematuria. Ten systems reviewed and negative except as described above or in the HPI. Physical Exam Filed Vitals: 08/11/192003 BP: (!) 146/114 Pulse: 96 Resp: 18 Temp: 97.2 ??F (36.2 ??C) TempSrc: Temporal SpO2: 100% Weight: 90.3 kg (199 lb 1.6 oz) Height: 5' 6 (1.676 m) Physical Exam VITALS: Reviewed. Hypertension noted. GENERAL: The patient is a very pleasant 49-year-old female examined in the Emergency Department. Patient is in mild acute distress at the time of my exam. HEENT: Normocephalic, atraumatic. Pupils are PERRL. Eyes focus and track. Sclerae are nonicteric and not injected. The face is symmetric, round, and fully expressive. Hearing is adequate to conversational voice. Ears are without discharge. Nares are grossly patent, and also without discharge. Mucous membranes are dry. NECK: No JVD, tracheal deviation, or subcutaneous emphysema is noted. CHEST: The thoracic cage is stable to palpation and nontender. LUNGS: Clear to auscultation bilaterally without wheezes, rales or rhonchi. Equal inspiratory and expiratory phases. HEART: Normal rate, regular rhythm. Normal S1 and S2. ABDOMEN: The patient is tender in the right lower quadrant. The focus of tenderness is medial and inferior to McBurney's point. No rebound, guarding, or rigidity is noted. No masses, bruits or hepatosplenomegaly are noted. EXTREMITIES: No clubbing, cyanosis, edema, or evidence of trauma is noted. NEURO: No gross focal neuro deficits are appreciated. GCS = 15. No seizure activity is noted in theemergency department. PSYCHIATRIC: The patient's mood, affect and interaction are appropriate to setting. SKIN: Normal color, temperature, and turgor noted throughout. Diagnostic Studies / Procedures LABORATORY STUDIES: Results for orders placed or performed during the hospital encounter of 08/11/19 CBC W/DIFF AUTOMATED Result Value Ref Range WBC 11.9 (H) 4.5 - 11.0 x10'3/uL RBC 4.07 (L) 4.20 - 5.40 x10'6/uL HGB 12.5 12.0 - 16.0 G/DL HCT 36.6 (L) 38.0 - 48.0 % MCV 89.9 80.0 - 94.0 FL MCH 30.7 27.0 - 31.0 PG MCHC 34.2 32.0 - 36.0 G/DL RDW 12.4 11.5 - 14.5 % PLT 288 130 - 400 x10'3/uL MPV 10.9 9.3 - 12.2 FL DIFFERENTIAL TYPE AUTOMATED DIFFERENTIAL NEUTROPHILS 66.9 % LYMPHOCYTES 27.5 % MONOCYTES 3.9 % EOSINOPHILS 0.8 % BASOPHILS 0.5 % IMMATURE GRANS 0.4 % ABS. NEUTROPHILS TOTAL 7.97 (H) 1.80 - 7.70 x10'3/uL ABS. LYMPHOCYTES 3.27 1.00 - 4.80 x10'3/uL ABS. MONOCYTES 0.46 0.24 - 0.86 x10'3/uL ABS. EOSINOPHILS 0.09 0.04 - 0.36 x10'3/uL ABS. BASOPHILS 0.06 0.01 - 0.08 x10'3/uL ABS. IMMATURE GRANULOCYTES 0.05 0.00 - 0.49 x10'3/uL COMPREHENSIVE METABOLIC PANEL Result Value Ref Range GLUCOSE 220 (H) 70 - 99 MG/DL BUN 20 (H) 7 - 18 MG/DL CREATININE S/P/B 1.09 (H) 0.55 - 1.02 MG/DL SODIUM 134 (L) 136 - 145 MMOL/L POTASSIUM 3.7 3.5 - 5.1 MMOL/L CHLORIDE S/P/B 100 100 - 108 MMOL/L CO2 30.2 21 - 32 MMOL/L CALCIUM 9.4 8.5 - 10.1 MG/DL BILIRUBIN TOTAL S/P/B 0.4 0.2 - 1.2 MG/DL TOTAL PROTEIN S/P/B 9.4 (H) 6.4 - 8.2 G/DL ALBUMIN S/P/B 3.6 3.4 - 5.0 G/DL AST 14 (L) 15 - 37 U/L ALT 22 14 - 55 U/L ALKALINE PHOSPHATASE S/P/B 127 50 - 136 U/L ANION GAP 3.8 (L) 5 - 15 MMOL/L BUN CREATININE RATIO 18.3 6 - 26 A/G RATIO 0.6 (L) 1.0 - 2.0 RATIO eGFR Non-Afr. Amer. 60 (L) >90 ML/MIN/1.73 M2 eGFR Afr. Amer. 70 (L) >90 ML/MIN/1.73 M2 LIPASE Result Value Ref Range LIPASE 113 73 - 393 UNITS/L URINALYSIS, AUTO, COMPLETE Result Value Ref Range Specimen Type URINE CLEAN CATCH COLOR (U) LIGHT YELLOW TRANSPARENCY CLEAR Specific [place] (U) 1.024 1.001 - 1.030 U PH [...] /HPF SQUAMOUS EPITHELIALS RARE /HPF LACTIC ACID Result Value Ref Range LACTIC ACID 1.2 0.4 - 2.0 MMOL/L MAGNESIUM Result Value Ref Range MAGNESIUM 1.6 (L) 1.8 - 2.4 MG/DL IMAGING STUDIES CT ABD+PEL W CON Final Result by User, [id number] (08/10 2246) EXAMINATION: CT Abdomen and Pelvis with contrast EXAM DATE/TIME: 08/11/2019 10:00 PM REASON FOR EXAM: RLQ pain, appendicitis suspected Right lower quadrant abdominal pain worsening today. Patient scheduled for prolapsed bladder procedure. COMPARISON: CT abdomen and pelvis 07/02/2019 TECHNIQUE: Axial CT images of the abdomen and pelvis are obtained following uneventful intravenous administration of 100 cc Isovue-370. Subsequent coronal and sagittal reformatted sequences are created for evaluation. A dose lowering technique was used for this procedure, which may include, but is not limited to, dose reduction technique, automated exposure control, iterative reconstruction, ALARA (As Low As Reasonably Achievable), or Image Gently techniques. FINDINGS: Minimal atelectasis in the left lung base. Lung bases otherwise clear. No pleural effusion. Heart size normal. No pericardial effusion. The liver and spleen are normal in size and surface contour. No abnormal enhancing hepatic lesions. High density layering in the gallbladder may be sludge or vicarious excretion of contrast. No further CT evidence of acute cholecystitis. Pancreas and adrenal glands unremarkable. Nonobstructing bilateral renal pelvic calcifications are noted. Stable chronic appearing right-sided hydronephrosis with normal caliber ureter suggesting UPJ obstruction. Abdominal aorta normal in caliber throughout with mild atherosclerotic disease and calcifications. Bowel is normal in caliber throughout. No evidence of bowel obstruction. Interval increase in size of cystic changes of left ovary. Left ovary now measures up to 4.6 cm in greatest dimension. The appendix is normal. Bladder is somewhat distended with normal contours. Bone level imaging shows no acute osseous abnormalities. ===== IMPRESSION: ===== 1. No specific CT findings to explain right lower quadrant abdominal pain. Normal appendix. Stable chronic right hydronephrosis with normal caliber ureter. No bowel obstruction. 2. High density layering in the gallbladder may be sludge. No further CT evidence of acute cholecystitis. 3. Tiny nonobstructing bilateral renal pelvic calcifications similar to prior study. 4. Increasing size of multiple low density lesions in the left ovary now measuring up to 4.6 cm in greatest dimension. Follow-up outpatient pelvic ultrasound recommended to ensure resolution. Interpreted By: Sanchez Pate MD, 08/11/2019 10:41 PM ED Course / Medical Decision Making This patient was evaluated for the symptoms described in the history of present illness. She was evaluated in the context of the global COVID-19 pandemic, which necessitated consideration that the patient might be at risk for infection with the SARS-CoV-2 virus that causes COVID-19. Institutional protocols and algorithms that pertain to the evaluation of patients at risk for COVID-19 are in a state of rapid change based on information released by regulatory bodies including the CDC and federal and state organizations. These policies and algorithms were followed during the patient's care. Admit ABDOMINAL PAIN Consultation with hospitalist (Dr. Bloom) service. We thoroughly discussed the history, physical [...] ISCHEMIA, PANCREATITIS, or PERFORATED BOWEL or ULCER. Clinical Impression Intractable abdominal pain (Primary) Disposition: Admit Christ Coombs MD 08/12/19 0202 * Spring Agustin RN - 08/11/2019 8:05 PM CDT Pt to ed from home with right lower abdominal pain into rectum pain that worsened today with sharp pains. Pt reports is supposed to have a procedure with Dr Perez on September 18. Pt originally had aprolapsed bladder procedure he has to go back in and readjust something . Pt reports last bm has been a couple days. documented in this encounter Plan of Treatment Upcoming Encounters Date Type Department Care Team (Late st Contact Info) Description 03/14/2024 11:45 AM CHIEF WARDEN Office Visit [facility]-[address] [id number] Marvin Mckeon MD [address] [facility] [address] [place] [address] 03/20/2024 11:30 AM CHIEF WARDEN Office Visit [facility] - [address] [place] [id number] Abiodun Segura II, MD [address] [place] [address] documented as of this encounter Procedures Procedure Name Priority Date/Time Associated Diagnosis Comments POCT GLUCOSE - CORREA DOCKED DEVICE Routine 08/14/2019 1:09 PM CDT POCT GLUCOSE - CORREA DOCKED DEVICE Routine 08/14/2019 5:50 AM CDT COMPREHENSIVE METABOLIC PANEL Routine 08/14/2019 4:25 AM CDT CBC W/DIFF AUTOMATED Routine 08/14/2019 4:25 AM CDT POCT GLUCOSE - CORREA DOCKED DEVICE Routine 08/13/2019 11:15 PM CDT POCT GLUCOSE - CORREA DOCKED DEVICE Routine 08/13/2019 5:56 PM CDT POCT GLUCOSE - CORREA DOCKED DEVICE Routine 08/13/2019 4:05 PM CDT POCT GLUCOSE - CORREA DOCKED DEVICE Routine 08/13/2019 1:25 PM CDT CYSTOSCOPY 08/13/2019 12:47 PM CDT PELVIC PAIN Special Needs PT IS IN ROOM 330 HYSTERECTOMY VAGINAL 08/13/2019 12:47 PM CDT PELVIC PAIN Special Needs PT IS IN ROOM 330 LAPAROSCOPY 08/13/2019 12:47 PM CDT PELVIC PAIN Special Needs PT IS IN ROOM 330 POCT GLUCOSE - CORREA DOCKED DEVICE Routine 08/13/2019 12:13 PM CDT POCT GLUCOSE - CORREA DOCKED DEVICE Routine 08/13/2019 11:16 AM CDT POCT GLUCOSE - CORREA DOCKED DEVICE Routine 08/13/2019 4:20 AM CDT COMPREHENSIVE METABOLIC PANEL Routine 08/13/2019 4:20 AM CDT CBC W/DIFF AUTOMATED Routine 08/13/2019 4:20 AM CDT PATHOLOGY Routine 08/13/2019 12:00 AM CDT POCT GLUCOSE - CORREA DOCKED DEVICE Routine 08/12/2019 11:28 PM CDT POCT GLUCOSE - CORREA DOCKED DEVICE Routine 08/12/2019 5:23 PM CDT POCT GLUCOSE - CORREA DOCKED DEVICE Routine 08/12/2019 11:37 AM CDT POCT GLUCOSE - CORREA DOCKED DEVICE Routine 08/12/2019 6:07 AM CDT URINALYSIS, AUTO, COMPLETE STAT 08/12/2019 1:[address] ABD+PEL W CON STAT 08/11/2019 10:2 9 PM CDT LACTIC ACID TIMED 08/11/2019 10:27 PM CDT CULTURE, BACTERIA, BLOOD STAT 08/11/2019 10:27 PM CDT CULTURE, BACTERIA, BLOOD STAT 08/11/2019 10:27 PM CDT COMPREHENSIVE METABOLIC PANEL STAT 08/11/2019 9:29 PM CDT CBC W/DIFF AUTOMATED STAT 08/11/2019 9:29 PM CDT MAGNESIUM STAT 08/11/2019 9:29 PM CDT LIPASE STAT 08/11/2019 9:29 PM CDT documented in this encounter Results * (ABNORMAL) POCT glucose (08/14/2019 1:09 PM CDT) GLUCOSE POC 228(H) 70 - 99 mg/dL 08/14/2019 1:12 PM CDT [facility] ORDERS INTERFACE 08/14/2019 1:09 PM CDT [facility] SUPPORTABILITY ENGINEER POCT ORDERABLES - DEVICE Fi nal Result Performing Organization Address [facility] Co de Phone Number [facility] ORDERS INTERFACE US * (ABNORMAL) POCT glucose (08/14/2019 5:50 AM CDT) GLUCOSE POC 192(H) 70 - 99 mg/dL 08/14/2019 5:57 AM CDT [facility] ORDERS INTERFACE 08/14/2019 5:50 AM CDT [facility] SUPPORTABILITY ENGINEER POCT ORDERABLES - DEVICE Fi nal Result Performing Organization Address [facility]/ZIP Co de Phone Number [facility] LAB ORDERS INTERFACE US * (ABNORMAL) COMPREHENSIVE METABOLIC PANEL (08/14/2019 4:25 AM CDT) [facility] GLUCOSE 211(H) 70 - 99 MG/DL 08/14/2019 5:34 AM CDT [facility] BUN 15 7 - 18 MG/DL 08/14/2019 5:34 AM CDT [facility] CREATININE S/P/B 1.14(H) 0.55 - 1.02 MG/DL 08/14/2019 5:34 AM CDT [facility] SODIUM S/P/B 135(L) 136 - 145 MMOL/L 08/14/2019 5:34 AM CDT [facility] POTASSIUM S/P/B 4.3 3.5 - 5.1 MMOL/L 08/14/2019 5:34 AM CDT [facility] CHLORIDE S/P/B 106 100 - 108 MMOL/L 08/14/2019 5:34 AM CDT [facility] CO2 24.6 21 - 32 MMOL/L 08/14/2019 5:34 AM CDT [facility] CALCIUM S/P/B 7.7(L) 8.5 - 10.1 MG/DL 08/14/2019 5:34 AM CDT [facility] BILIRUBIN TOTAL S/P/B 0.5 0.2 - 1.2 MG/DL 08/14/2019 5:34 AM CDT [facility] Comment: THIS ASSAY IS NOT RECOMMENDED FOR PATIENTS UNDERGOING TREATMENT WITH ELTROMBOPAG DUE TO THE POTENTIAL FOR FALSELY ELEVATED RESULTS. TOTAL PROTEIN S/P/B 6.8 6.4 - 8.2 G/DL 08/14/2019 5:34 AM CDT [facility] ALBUMIN S/P/B 2.4(L) 3.4 - 5.0 G/DL 08/14/2019 5:34 AM CDT [facility] AST 13(L) 15 - 37 U/L 08/14/2019 5:34 AM CDT [facility] ALT 15 14 - 55 U/L 08/14/2019 5:34 AM CDT [facility] ALKALINE PHOSPHATASE S/P/B 87 50 - 136 U/L 08/14/2019 5:34 AM CDT [facility] ANION GAP 4.4(L) 5 - 15 MMOL/L 08/14/2019 5:34 AM CDT [facility] BUN CREATININE RATIO 13.2 6 - 26 08/14/2019 5:34 AM CDT [facility] A/G RATIO 0.5(L) 1.0 - 2.0 RATIO 08/14/2019 5:34 AM CDT [facility] EGFR NON-AFR. AMER. 57(L) >90 ML/MIN/1.7 3 M2 08/14/2019 5:34 AM CDT [facility] EGFR AFR. AMER. 66(L) >90 ML/MIN/1.7 3 M2 08/14/2019 5:34 AM CDT [facility] Comment: NOTE: eGFR is not calculated for patients <18 years of age. This is an estimated GFR (CKD EPI) and should not be used for calculating drug doses. 08/14/2019 4:25 AM CDT Rosa Isela Lutz NP LABORATORY Final Result [facility] [address] [place] [address], [place] [phone] * (ABNORMAL) CBC W/DIFF AUTOMATED (08/14/2019 4:25 AM CDT) WBC 12.0(H) 4.5 - 11.0 x10'3/uL 08/14/2019 6:45 AM CDT [facility] RBC 3.19(L) 4.20 - 5.40 x10'6/uL 08/14/2019 6:45 AM CDT [facility] HGB 9.8(L) 12.0 - 16.0 G/DL 08/14/2019 6:45 AM CDT [facility] HCT 29.3(L) 38.0 - 48.0 % 08/14/2019 6:45 AM CDT [facility] MCV 91.8 80.0 - 94.0 FL 08/14/2019 6:45 AM CDT [facility] MCH 30.7 27.0 - 31.0 PG 08/14/2019 6:45 AM CDT [facility] MCHC 33.4 32.0 - 36.0 G/DL 08/14/2019 6:45 AM CDT [facility] RDW 12.6 11.5 - 14.5 % 08/14/2019 6:45 AM CDT [facility] PLT 258 130 - 400 x10'3/uL 08/14/2019 6:45 AM CDT [facility] MPV 11.5 9.3 - 12.2 FL 08/14/2019 6:45 AM CDT [facility] DIFFERENTIAL TYPE AUTOMATED DIFFERENTIAL 08/14/2019 6:45 AM CDT [facility] NEUTROPHILS % 80.9 % 08/14/2019 6:45 AM CDT [facility] LYMPHOCYTES % 13.9 % 08/14/2019 6:45 AM CDT [facility] MONOCYTES % 4.1 % 08/14/2019 6:45 AM CDT [facility] EOSINOPHILS 0.5 % 08/14/2019 6:45 AM CDT [facility] BASOPHILS 0.2 % 08/14/2019 6:45 AM CDT [facility] IMMATURE GRANS % 0.4 % 08/14/19 20 6:45 AM CDT [facility] ABS. NEUTROPHILS TOTAL 9.68(H) 1.80 - 7.70 x10'3/uL 08/14/2019 6:45 AM CDT [facility] ABS. LYMPHOCYTES 1.66 1.00 - 4.80 x10'3/uL 08/14/2019 6:45 AM CDT [facility] ABS. MONOCYTES 0.49 0.24 - 0.86 x10'3/uL 08/14/2019 6:45 AM CDT [facility] ABS. EOSINOPHILS 0.06 0.04 - 0.36 x10'3/uL 08/14/2019 6:45 AM CDT [facility] ABS. BASOPHILS 0.02 0.01 - 0.08 x10'3/uL 08/14/2019 6:45 AM CDT [facility] ABS. IMMATURE GRANULOCYTES 0.05 0.00 - 0.49 x10'3/uL 08/14/2019 6:45 AM CDT [facility] 08/14/2019 4:25 AM CDT us Rosa Isela Lutz NP LABORATORY Final Result [facility] [address] [place] [address], [place] [phone] * (ABNORMAL) POCT glucose (08/13/2019 11:15 PM CDT) GLUCOSE POC 142(H) 70 - 99 mg/dL 08/13/2019 11:17 PM CDT [facility] LAB ORDERS INTERFACE 08/13/2019 11:1 5 PM CDT us Rosa Isela L Lutz SUPPORTABILITY ENGINEER POCT ORDERABLES - DEVICE Katheryn l Result [facility] LAB ORDERS INTERFACE US * (ABNORMAL) POCT glucose (08/13/2019 5:56 PM CDT) GLUCOSE POC 173(H) 70 - 99 mg/dL 08/13/2019 5:57 PM CDT [facility] LAB ORDERS INTERFACE 08/13/2019 5:56 PM CDT us Rosa Isela Lutz SUPPORTABILITY ENGINEER POCT ORDERABLES - DEVICE Katheryn l Result [facility] ORDERS INTERFACE US * (ABNORMAL) POCT glucose (08/13/2019 4:05 PM CDT) GLUCOSE POC 181(H) 70 - 99 mg/dL 08/13/2019 4:26 PM CDT [facility] ORDERS INTERFACE 08/13/2019 4:05 PM CDT us Rosa Isela Lutz SUPPORTABILITY ENGINEER POCT ORDERABLES - DEVICE Katheryn l Result Performing Organization Address City/[facility]/ZIP Co de Phone Number [facility] ORDERS INTERFACE US * (ABNORMAL) POCT glucose (08/13/2019 1:25 PM CDT) GLUCOSE POC 122(H) 70 - 99 mg/dL 08/14/2019 8:38 AM CDT [facility] ORDERS INTERFACE 08/13/2019 1:25 PM CDT us Erica Lomax SUPPORTABILITY ENGINEER POCT ORDERABLES - DEVICE Fi nal Result [facility] ORDERS INTERFACE US * (ABNORMAL) POCT glucose (08/13/2019 12:13 PM CDT) GLUCOSE POC 178(H) 70 - 99 mg/dL 08/13/2019 12:17 PM CDT [facility] ORDERS INTERFACE 08/13/2019 12:1 3 PM CDT Rosa Isela Rushing Bolivar SUPPORTABILITY ENGINEER POCT ORDERABLES - DEVICE Katheryn l Result Performing Organization Address City/[facility] Co de Phone Number [facility] ORDERS INTERFACE US * (ABNORMAL) POCT glucose (08/13/2019 11:16 AM CDT) GLUCOSE POC 187(H) 70 - 99 mg/dL 08/13/2019 11:21 AM CDT [facility] ORD[facility] INTERFACE 08/13/2019 11:1 6 AM CDT Rosa Isela Rushing Bolivar SUPPORTABILITY ENGINEER POCT ORDERABLES - DEVICE Katheryn l Result Performing Organization Address [facility] Co de Phone Number [facility] ORDERS INTERFACE US * (ABNORMAL) POCT glucose (08/13/2019 4:20 AM CDT) GLUCOSE POC 192(H) 70 - 99 mg/dL 08/13/2019 4:22 AM CDT [facility] ORDERS INTERFACE 08/13/2019 4:20 AM CDT Rosa Isela Rushing Bolivar SUPPORTABILITY ENGINEER POCT ORDERABLES - DEVICE Katheryn l Result Performing Organization Address [facility] de Phone Number [facility] ORDERS INTERFACE US * (ABNORMAL) COMPREHENSIVE METABOLIC PANEL (08/13/2019 4:20 AM CDT) GLUCOSE 193(H) 70 - 99 MG/DL 08/13/2019 5:25 AM CDT [facility] BUN 16 7 - 18 MG/DL 08/13/2019 5:25 AM CDT [facility] CREATININE S/P/B 0.93 0.55 - 1.02 MG/DL 08/13/2019 5:25 AM CDT [facility] SODIUM S/P/B 137 136 - 145 MMOL/L 08/13/2019 5:25 AM CDT [facility] POTASSIUM S/P/B 4.2 3.5 - 5.1 MMOL/L 08/13/2019 5:25 AM CDT [facility] CHLORIDE S/P/B 106 100 - 108 MMOL/L 08/13/2019 5:25 AM CDT [facility] CO2 26.6 21 - 32 MMOL/L 08/13/2019 5:25 AM CDT [facility] CALCIUM S/P/B 8.3(L) 8.5 - 10.1 MG/DL 08/13/2019 5:25 AM CDT [facility] BILIRUBIN TOTAL S/P/B 0.3 0.2 - 1.2 MG/DL 08/13/2019 5:25 AM CDT [facility] Comment: THIS ASSAY IS NOT RECOMMENDED FOR PATIENTS UNDERGOING TREATMENT WITH ELTROMBOPAG DUE TO THE POTENTIAL FOR FALSELY ELEVATED RESULTS. TOTAL PROTEIN S/P/B 7.6 6.4 - 8.2 G/DL 08/13/2019 5:25 AM CDT [facility] ALBUMIN S/P/B 2.7(L) 3.4 - 5.0 G/DL 08/13/2019 5:25 AM CDT [facility] AST 15 15 - 37 U/L 08/13/2019 5:25 AM CDT [facility] ALT 18 14 - 55 U/L 08/13/2019 5:25 AM CDT [facility] ALKALINE PHOSPHATASE S/P/B 109 50 - 136 U/L 08/13/2019 5:25 AM CDT [facility] ANION GAP 4.4(L) 5 - 15 MMOL/L 08/13/2019 5:25 AM CDT [facility] BUN CREATININE RATIO 17.2 6 - 26 08/13/2019 5:25 AM CDT [facility] A/G RATIO 0.6(L) 1.0 - 2.0 RATIO 08/13/2019 5:25 AM CDT [facility] EGFR NON-AFR. AMER. 73(L) >90 ML/MIN/1.7 3 M2 08/13/2019 5:25 AM CDT [facility] EGFR AFR. AMER. 84(L) >90 ML/MIN/1.7 3 M2 08/13/2019 5:25 AM CDT [facility] Comment: NOTE: eGFR is not calculated for patients <18 years of age. This is an estimated GFR (CKD EPI) and should not be used for calculating drug doses. 08/13/2019 4:20 AM CDT Rosa Isela Lutz NP LABORATORY Final Result [facility] [address] [address], * (ABNORMAL) CBC W/DIFF AUTOMATED (08/13/2019 4:20 AM CDT) WBC 9.8 4.5 - 11.0 x10'3/uL 08/13/2019 4:49 AM CDT [facility] RBC 3.61(L) 4.20 - 5.40 x10'6/uL 08/13/2019 4:49 AM CDT [facility] HGB 11.0(L) 12.0 - 16.0 G/DL 08/13/2019 4:49 AM CDT [facility] HCT 32.8(L) 38.0 - 48.0 % 08/13/2019 4:49 AM CDT [facility] MCV 90.9 81.0 - 99.0 FL 08/13/2019 4:49 AM CDT [facility] MCH 30.5 27.0 - 31.0 PG 08/13/2019 4:49 AM CDT [facility] MCHC 33.5 32.0 - 36.0 G/DL 08/13/2019 4:49 AM CDT [facility] RDW 12.4 11.5 - 14.5 % 08/13/2019 4:49 AM CDT [facility] PLT 267 130 - 400 x10'3/uL 08/13/2019 4:49 AM CDT [facility] MPV 11.2 9.3 - 12.2 FL 08/13/2019 4:49 AM CDT [facility] DIFFERENTIAL TYPE AUTOMATED DIFFERENTIAL 08/13/2019 4:49 AM CDT [facility] NEUTROPHILS % 58.6 % 08/13/2019 4:49 AM CDT [facility] LYMPHOCYTES % 34.4 % 08/13/2019 4:49 AM CDT [facility] MONOCYTES % 5.1 % 08/13/2019 4:49 AM CDT [facility] EOSINOPHILS 1.1 % 08/13/2019 4:49 AM CDT [facility] BASOPHILS 0.5 % 08/13/2019 4:49 AM CDT [facility] IMMATURE GRANS % 0.3 % 08/13/19 20 4:49 AM CDT [facility] ABS. NEUTROPHILS TOTAL 5.72 1.80 - 7.70 x10'3/uL 08/13/2019 4:49 AM CDT [facility] ABS. LYMPHOCYTES 3.36 1.00 - 4.80 x10'3/uL 08/13/2019 4:49 AM CDT [facility] ABS. MONOCYTES 0.50 0.24 - 0.86 x10'3/uL 08/13/2019 4:49 AM CDT [facility] ABS. EOSINOPHILS 0.11 0.04 - 0.36 x10'3/uL 08/13/2019 4:49 AM CDT [facility] ABS. BASOPHILS 0.05 0.01 - 0.08 x10'3/uL 08/13/2019 4:49 AM CDT [facility] ABS. IMMATURE GRANULOCYTES 0.03 0.00 - 0.49 x10'3/uL 08/13/2019 4:49 AM CDT [facility] 08/13/2019 4:20 AM CDT us Rosa Isela Lutz SUPPORTABILITY ENGINEER LABORATORY Final Result [facility] [address] [place] [address], * Pathology (08/13/2019 12:00 AM CDT) COPATH REPORT ? [facility] system ? [address] [facility] ? [place], [place] ??[address] ? [id number] ? Department of Pathology ? Pathology Report ? SURGICAL FINAL REPORT Patient Name: LENA YOUNGBLOOD ? : 1970 (Age: 49) ? Location: [address] Gender: F ?Collected Date: 08/13/2019 Med Rec #: [id number] ?Date Received: 08/14/2019 Date Reported: 08/15/2019 Provider: MIKAYLA PEREZ DO ?CARLINE BLOOM MD ?SORAYA SANZ MD ?ROSA ISELA LUTZ SUPPORTABILITY ENGINEER ?[facility] ?JARRED FERNÁNDEZ MD Specimen(s) A: Cervix B: Fallopian tube tissue, right Final Pathologic Diagnosis A. CERVIX; TRACHELECTOMY: -CERVIX WITH MILD HYPERKERATOSIS, DILATED NABOTHIAN CYSTS, AND FOCAL ACUTE INFLAMMATION -NEGATIVE FOR DYSPLASIA AND MALIGNANCY B. FALLOPIAN TUBE, RIGHT; SALPINGECTOMY: -FALLOPIAN TUBE WITH NO SIGNIFICANT HISTOPATHOLOGIC ABNORMALITIES Electronically Signed Out ? BESSIE LANDIN MD Pathologist IF:if Microscopic Description: Microscopic examination is performed and the findings support the final diagnosis. Clinical History Pelvic pain Gross Description The specimens are received in two formalin-filled containers, both of which are labeled (Lena Youngblood) and with the patient's date of . A. ??The first container is additionally labeled cervix and consists of an ectocervical stump that measures 4 x 3 x 1.5 cm. The mucosal surface is roughened along one aspect (specimen received unoriented). The mucosal disruption measures approximately 1.5 x 1 cm. Otherwise, the ectocervix is light mohan and wrinkly. The os is stenotic, measuring approximately 1.5 cm in diameter. The resection margin is inked. The cervix is divided into quadrants to reveal cystic spaces filled with gelatinous to necrotic-appearing material. The area of mucosal disruption is associated with underlying hemorrhage. No other masses are identified. The area of mucosal erosion is designated to be 3:00 position. [employer] sections from each quadrant are submitted in cassettes A1-A4, with each cassette containing two separate sections and A1 representing the 3-6:00 quadrant, A2 the 6-9:00 quadrant, A3 the 9-12:00, and A4 the 12-3:00. Please note, these anatomic designations are arbitrary, as the specimen is received unoriented. B. ??The second container is additionally labeled fallopian tube, right and consists of a disrupted fallopian tube that is received in four pieces. The larger fragments demonstrate a fimbriated end and measures 4 cm in length x 0.5 cm in diameter. The serosal surface of one aspect is light mohan, and appears to have been stripped from the opposite surface, which may have included removal of some of the fimbria. The separately submitted tissue fragments may represent additional fimbriae, and range from 1 to 1.5 cm in greatest dimension. The tube is serially sectioned to reveal a pinpoint lumen. [employer] [place] sections of the right fallopian tube, to include the fimbriated end on the largest aspect, and the three separately submitted tissue fragments, are submitted in cassette B1 and B2. OJL:if Billing Fee Code(s): 89435, 41778 [facility] Tissue specimen (specimen) CERVIX UTERI STRUCTURE / Unknown 08/13/2019 3:16 PM CDT us Mikayla Perez DO PATHOLOGY/CYTOLOGY ORDERABLES Final Result [facility] [address] [place] [address], * (ABNORMAL) POCT glucose (08/12/2019 11:28 PM CDT) GLUCOSE POC 268(H) 70 - 99 mg/dL 08/12/2019 11:31 PM CDT [facility] ORDERS INTERFACE 08/12/2019 11:2 8 PM CDT Rosa Isela Lutz SUPPORTABILITY ENGINEER POCT ORDERABLES - DEVICE Katheryn l Result Performing Organization Address [facility] de Phone Number [facility] ORDERS INTERFACE US * (ABNORMAL) POCT glucose (08/12/2019 5:23 PM CDT) GLUCOSE POC 149(H) 70 - 99 mg/dL 08/12/2019 5:24 PM CDT [facility] ORDERS INTERFACE 08/12/2019 5:23 PM CDT Rosa Isela Lutz NP POCT ORDERABLES - DEVICE Katheryn l Result Performing Organization Address [facility] de Phone Number [facility] ORDERS INTERFACE US * (ABNORMAL) POCT glucose (08/12/2019 11:37 AM CDT) GLUCOSE POC 148(H) 70 - 99 mg/dL 08/12/2019 11:39 AM CDT [facility] ORDERS INTERFACE 08/12/2019 11:3 7 AM CDT Rosa Isela Lutz NP POCT ORDERABLES - DEVICE Katheyrn l Result Performing Organization Address [facility] de Phone Number [facility] ORDERS INTERFACE US * (ABNORMAL) POCT glucose (08/12/2019 6:07 AM CDT) GLUCOSE POC 160(H) 70 - 99 mg/dL 08/12/2019 6:09 AM CDT [facility] ORDERS INTERFACE 08/12/2019 6:07 AM CDT Soraya Sanz MD POCT ORDERABLES - DEVICE Final Result [facility] ORDERS INTERFACE US * (ABNORMAL) URINALYSIS, AUTO, COMPLETE (08/12/2019 1:00 AM CDT) SPECIMEN TYPE URINE CLEAN CATCH 08/12/2019 12:59 AM CDT [facility] COLOR (U) LIGHT YELLOW 08/12/2019 1:08 AM CDT [facility] TRANSPARENCY CLEAR 08/12/2019 1:08 AM CDT [facility] SPECIFIC GRAVITY (U) 1.024 1.001 - 1.030 08/12/2019 1:08 AM CDT [facility] U PH 5.5 5.0 - 9.0 08/12/2019 1:08 AM CDT [facility] LEUKOCYTES (U) NEGATIVE NEGATIVE 08/12/2019 1:08 AM CDT [facility] NITRITES NEGATIVE NEGATIVE 08/12/2019 1:08 AM T [facility] PROTEIN (U) 70(H) <30 MG/DL 08/12/2019 1:08 AM T [facility] URINE GLUCOSE 200(A) NORMAL MG/DL 08/12/2019 1:08 AM T [facility] KETONES MG/DL (U) NEGATIVE NEGATIVE MG/DL 08/12/2019 1:08 AM T [facility] UROBILINOGEN NORMAL NORMAL MG/DL 08/12/2019 1:08 AM T [facility] BILIRUBIN (U) NEGATIVE NEGATIVE MG/DL 08/12/2019 1:08 AM T [facility] BLOOD (U) NEGATIVE NEGATIVE 08/12/2019 1:08 AM T [facility] CULTURE & SENSITIVITY INDICATED? CULTURE IS NOT INDICATED 08/12/2019 1:08 AM T [facility] MUCUS RARE /LPF 08/12/2019 1:08 AM CDT [facility] WBC/HPF 1 <6 /HPF 08/12/2019 1:08 AM CDT [facility] RBC/HPF 1 <6 /HPF 08/12/2019 1:08 AM CDT [facility] BACTERIA (U) RARE(A) NONE /HPF 08/12/2019 1:08 AM CDT [facility] SQUAMOUS EPITHELIALS RARE /HPF 08/12/2019 1:08 AM CDT [facility] URINE SPECIMEN OBTAINED BY CLEAN CATCH PROCEDURE / Unknown 08/12/2019 1:00 AM CDT Christ Coombs MD URINE ORDERABLES Final Result [facility] [address] [place] [address], * CT ABD+PEL W CON (08/11/2019 10:29 PM CDT) Anatomical Region Laterality Modality Abdomen Computed Tomogra phy 08/11/2019 10:4 1 PM CDT Impressions 08/11/2019 10:46 PM CDT IMPRESSION: ===== 1. ??No specific CT findings to explain right lower quadrant abdominal pain. ??Normal appendix. ??Stable chronic right hydronephrosis with normal caliber ureter. ??No bowel obstruction. 2. ??High density layering in the gallbladder may be sludge. ??No further CT evidence of acute cholecystitis. 3. ??Tiny nonobstructing bilateral renal pelvic calcifications similar to prior study. 4. ??Increasing size of multiple low density lesions in the left ovary now measuring up to 4.6 cm in greatest dimension. ??Follow-up outpatient pelvic ultrasound recommended to ensure resolution. Interpreted By: Sanchez Pate MD, 08/11/2019 10:41 PM Narrative 08/11/2019 10:46 PM CDT EXAMINATION: CT Abdomen and Pelvis with contrast EXAM DATE/TIME: 08/11/2019 10:00 PM REASON FOR EXAM: ??RLQ pain, appendicitis suspected ?? Right lower quadrant abdominal pain worsening today. ??Patient scheduled for prolapsed bladder procedure. COMPARISON: CT abdomen and pelvis 07/02/2019 TECHNIQUE: Axial CT images of the abdomen and pelvis are obtained following uneventful intravenous administration of 100 cc Isovue-370. Subsequent coronal and sagittal reformatted sequences are created for evaluation. ??A dose lowering technique was used for this procedure, which may include, but is not limited to, dose reduction technique, automated exposure control, iterative reconstruction, ALARA (As Low As Reasonably Achievable), or Image Gently techniques. FINDINGS: Minimal atelectasis in the left lung base. ??Lung bases otherwise clear. ??No pleural effusion. ??Heart size normal. ??No pericardial effusion. The liver and spleen are normal in size and surface contour. ??No abnormal enhancing hepatic lesions. ??High density layering in the gallbladder may be sludge or vicarious excretion of contrast. ??No further CT evidence of acute cholecystitis. ??Pancreas and adrenal glands unremarkable. ??Nonobstructing bilateral renal pelvic calcifications are noted. ??Stable chronic appearing right-sided hydronephrosis with normal caliber ureter suggesting UPJ obstruction. ??Abdominal aorta normal in caliber throughout with mild atherosclerotic disease and calcifications. ??Bowel is normal in caliber throughout. ??No evidence of bowel obstruction. ??Interval increase in size of cystic changes of left ovary. ??Left ovary now measures up to 4.6 cm in greatest dimension. ??The appendix is normal. ??Bladder is somewhat distended with normal contours. ??Bone level imaging shows no acute osseous abnormalities. ===== Procedure Note Sanchez Pate MD - 08/11/2019 EXAMINATION: CT Abdomen and Pelvis with contrast EXAM DATE/TIME: 08/11/2019 10:00 PM REASON FOR EXAM: RLQ pain, appendicitis suspected Right lower quadrant abdominal pain worsening today. Patient scheduledfor prolapsed bladder procedure. COMPARISON: CT abdomen and pelvis 07/02/2019 TECHNIQUE: Axial CT images of the abdomen and pelvis are obtainedfollowing uneventful intravenous administration of 100 cc Isovue-370.Subsequent coronal and sagittal reformatted sequences are created forevaluation. A dose lowering technique was used for this procedure, whichmay include, but is not limited to, dose reduction technique, automatedexposure control, iterative reconstruction, ALARA (As Low As ReasonablyAchievable), or Image Gently techniques. FINDINGS: Minimal atelectasis in the left lung base. Lung bases otherwiseclear. No pleural effusion. Heart size normal. No pericardialeffusion. The liver and spleen are normal in size and surface contour. No abnormalenhancing hepatic lesions. High density layering in the gallbladder maybe sludge or vicarious excretion of contrast. No further CT evidence ofacute cholecystitis. Pancreas and adrenal glands unremarkable.Nonobstructing bilateral renal pelvic calcifications are noted. Stablechronic appearing right-sided hydronephrosis with normal caliber uretersuggesting UPJ obstruction. Abdominal aorta normal in caliber throughoutwith mild atherosclerotic disease and calcifications. Bowel is normal incaliber throughout. No evidence of bowel obstruction. Interval increasein size of cystic changes of left ovary. Left ovary now measures up to4.6 cm in greatest dimension. The appendix is normal. Bladder issomewhat distended with normal contours. Bone level imaging shows noacute osseous abnormalities. ===== IMPRESSION: ===== 1. No specific CT findings to explain right lower quadrant abdominalpain. Normal appendix. Stable chronic right hydronephrosis with normalcaliber ureter. No bowel obstruction. 2. High density layering in the gallbladder may be sludge. No further CTevidence of acute cholecystitis. 3. Tiny nonobstructing bilateral renal pelvic calcifications similar toprior study. 4. Increasing size of multiple low density lesions in the left ovary nowmeasuring up to 4.6 cm in greatest dimension. Follow-up outpatient pelvicultrasound recommended to ensure resolution. Interpreted By: Sanchez Pate MD, 08/11/2019 10:41 PM Christ Coombs MD CT Final Result * CULTURE, BACTERIA, BLOOD (08/11/2019 10:27 PM CDT) SPEC DESCRIPTION BLOOD 08/11/19 10:34 PM CDT [facility] SPECIAL REQUESTS LAC 08/11/19 10:34 PM CDT [facility] CULTURE RESULT NO GROWTH 6 DAYS 08/17/2019 11:24 AM CDT [facility] BLOOD SPECIMEN OBTAINED FOR BLOOD CULTURE / Unknown 08/11/2019 10:27 PM CDT 08/11/2019 10:34 PM CDT Christ Coombs MD MICROBIOLOGY - GENERAL ORDERABL ES Final Result [facility] [address] [place] [address], [place] [phone] * CULTURE, BACTERIA, BLOOD (08/11/2019 10:27 PM CDT) SPEC DESCRIPTION BLOOD 08/11/19 10:34 PM CDT [facility] SPECIAL REQUESTS HAND,RIGHT 08/11/19 10:34 PM CDT [facility] CULTURE RESULT NO GROWTH 6 DAYS 08/17/2019 11:24 AM CDT [facility] BLOOD SPECIMEN OBTAINED FOR BLOOD CULTURE / Unknown 08/11/2019 10:27 PM CDT 08/11/2019 10:34 PM CDT Christ Coombs MD MICROBIOLOGY - GENERAL ORDERABL ES Final Result [facility] [address] [place] [address], [place] [phone] * LACTIC ACID (08/11/2019 10:27 PM CDT) LACTIC ACID VENOUS 1.2 0.4 - 2.0 MMOL/L 08/11/2019 11:01 PM CDT [facility] 08/11/2019 10:2 7 PM CDT us Christ Coombs MD LABORATORY Final Result Performing Organization Address [facility] Co de Phone Number [facility] [address] [place] [address], [place] [phone] * (ABNORMAL) MAGNESIUM (08/11/2019 9:29 PM CDT) MAGNESIUM 1.6(L) 1.8 - 2.4 MG/DL 08/11/2019 10:46 PM CDT [facility] 08/11/2019 9:29 PM CDT us Christ Coombs MD LABORATORY Final Result Performing Organization Address [facility] Co de Phone Number [facility] [address] [place] [address], [place] [phone] * LIPASE (08/11/2019 9:29 PM CDT) LIPASE 113 73 - 393 UNITS/L 08/11/2019 10:03 PM CDT [facility] 08/11/2019 9:29 PM CDT us Christ Coombs MD LABORATORY Final Result Performing Organization Address [facility] Co de Phone Number [facility] [address] [place] [address], [place] [phone] * (ABNORMAL) COMPREHENSIVE METABOLIC PANEL (08/11/2019 9:29 PM CDT) GLUCOSE 220(H) 70 - 99 MG/DL 08/11/2019 10:03 PM CDT [facility] BUN 20(H) 7 - 18 MG/DL 08/11/2019 10:03 PM CDT [facility] CREATININE S/P/B 1.09(H) 0.55 - 1.02 MG/DL 08/11/2019 10:03 PM T [facility] SODIUM S/P/B 134(L) 136 - 145 MMOL/L 08/11/2019 10:03 PM T [facility] POTASSIUM S/P/B 3.7 3.5 - 5.1 MMOL/L 08/11/2019 10:03 PM T [facility] CHLORIDE S/P/B 100 100 - 108 MMOL/L 08/11/2019 10:03 PM T [facility] CO2 30.2 21 - 32 MMOL/L 08/11/2019 10:03 PM T [facility] CALCIUM S/P/B 9.4 8.5 - 10.1 MG/DL 08/11/2019 10:03 PM T [facility] BILIRUBIN TOTAL S/P/B 0.4 0.2 - 1.2 MG/DL 08/11/2019 10:[address] [facility] Comment: THIS ASSAY IS NOT RECOMMENDED FOR PATIENTS UNDERGOING TREATMENT WITH ELTROMBOPAG DUE TO THE POTENTIAL FOR FALSELY ELEVATED RESULTS. TOTAL PROTEIN S/P/B 9.4(H) 6.4 - 8.2 G/DL 08/11/2019 10:03 PM T [facility] ALBUMIN S/P/B 3.6 3.4 - 5.0 G/DL 08/11/2019 10:03 PM T [facility] AST 14(L) 15 - 37 U/L 08/11/2019 10:03 PM T [facility] ALT 22 14 - 55 U/L 08/11/2019 10:03 PM T [facility] ALKALINE PHOSPHATASE S/P/B 127 50 - 136 U/L 08/11/2019 10:03 PM CDT [facility] ANION GAP 3.8(L) 5 - 15 MMOL/L 08/11/2019 10:03 PM CDT [facility] BUN CREATININE RATIO 18.3 6 - 26 08/11/2019 10:03 PM CDT [facility] A/G RATIO 0.6(L) 1.0 - 2.0 RATIO 08/11/2019 10:03 PM CDT [facility] EGFR NON-AFR. AMER. 60(L) >90 ML/MIN/1.7 3 M2 08/11/2019 10:03 PM CDT [facility] EGFR AFR. AMER. 70(L) >90 ML/MIN/1.7 3 M2 08/11/2019 10:03 PM CDT [facility] Comment: NOTE: eGFR is not calculated for patients <18 years of age. This is an estimated GFR (CKD EPI) and should not be used for calculating drug doses. 08/11/2019 9:29 PM CDT Christ Coombs MD LABORATORY Final Result [facility] [address] [place] [address], * (ABNORMAL) CBC W/DIFF AUTOMATED (08/11/2019 9:29 PM CDT) WBC 11.9(H) 4.5 - 11.0 x10'3/uL 08/11/2019 9:40 PM CDT [facility] RBC 4.07(L) 4.20 - 5.40 x10'6/uL 08/11/2019 9:40 PM CDT [facility] HGB 12.5 12.0 - 16.0 G/DL 08/11/2019 9:40 PM CDT [facility] HCT 36.6(L) 38.0 - 48.0 % 08/11/2019 9:40 PM CDT [facility] MCV 89.9 80.0 - 94.0 FL 08/11/2019 9:40 PM CDT [facility] MCH 30.7 27.0 - 31.0 PG 08/11/2019 9:40 PM CDT [facility] MCHC 34.2 32.0 - 36.0 G/DL 08/11/2019 9:40 PM CDT [facility] RDW 12.4 11.5 - 14.5 % 08/11/2019 9:40 PM CDT [facility] PLT 288 130 - 400 x10'3/uL 08/11/2019 9:40 PM CDT [facility] MPV 10.9 9.3 - 12.2 FL 08/11/2019 9:40 PM CDT [facility] DIFFERENTIAL TYPE AUTOMATED DIFFERENTIAL 08/11/2019 9:40 PM CDT [facility] NEUTROPHILS % 66.9 % 08/11/2019 9:40 PM CDT [facility] LYMPHOCYTES % 27.5 % 08/11/2019 9:40 PM CDT [facility] MONOCYTES % 3.9 % 08/11/2019 9:40 PM CDT [facility] EOSINOPHILS 0.8 % 08/11/2019 9:40 PM CDT [facility] BASOPHILS 0.5 % 08/11/2019 9:40 PM CDT [facility] IMMATURE GRANS % 0.4 % 08/11/19 20 9:40 PM CDT [facility] ABS. NEUTROPHILS TOTAL 7.97(H) 1.80 - 7.70 x10'3/uL 08/11/2019 9:40 PM CDT [facility] ABS. LYMPHOCYTES 3.27 1.00 - 4.80 x10'3/uL 08/11/2019 9:40 PM CDT [facility] ABS. MONOCYTES 0.46 0.24 - 0.86 x10'3/uL 08/11/2019 9:40 PM CDT [facility] ABS. EOSINOPHILS 0.09 0.04 - 0.36 x10'3/uL 08/11/2019 9:40 PM CDT [facility] ABS. BASOPHILS 0.06 0.01 - 0.08 x10'3/uL 08/11/2019 9:40 PM CDT [facility] ABS. IMMATURE GRANULOCYTES 0.05 0.00 - 0.49 x10'3/uL 08/11/2019 9:40 PM CDT [facility] 08/11/2019 9:29 PM CDT Christ Coombs MD LABORATORY Final Result [facility] [address] [place] [address], [place] [phone] documented in this encounter Visit Diagnoses Not on filedocumented in this encounter Administered Medications Inactive Administered Medications - up to 3 most recent administrations Medication Order MAR Action Action Date Dose Rate Site acetaminophen (TYLENOL) tablet 650 mg 650 mg, Oral, Every 4 hours PRN, Mild pain (Scale 1 - 3), Headaches, Fever, Starting on Sun08/12/19 at 0410, Until Viky 08/14/19 at 1957, Maximum dose of acetaminophen is 4000 mg from all sources in 24 hours. aspirin EC (ECOTRIN) tablet 81 mg 81 mg, Oral, Daily, First dose on Sun08/12/19 at 0900, Until Discontinued, Do not break, chew, or crush. Given 08/14/2019 9:05 AM CDT 81 mg Given 08/12/2019 11:25 AM CDT 81 mg atorvastatin (LIPITOR) tablet 20 mg 20 mg, Oral, Daily, First dose on Sun08/12/19 at 0900, Until Discontinued Given 08/14/2019 9:05 AM CDT 20 mg Given 08/12/2019 10:01 AM CDT 20 mg BUpivacaine (PF) (MARCAINE) 0.5 % injection As needed, Starting on Sun08/13/19 at 1531, Until Sun08/13/19 at 1602, Intra-Op Given 08/13/2019 3:31 PM CDT 10 mLs docusate sodium (COLACE) capsule 100 mg 100 mg, Oral, 2 times daily, First dose on Sun08/12/19 at 0900, Until Discontinued Given 08/14/2019 9:05 AM CDT 100 mg Given 08/13/2019 8:47 PM CDT 100 mg Given 08/12/2019 8:47 PM CDT 100 mg fentaNYL (SUBLIMAZE) 100 MCG/2ML injection 1 dose, Starting on Sun08/12/19 at 0145, Until Sun08/12/19 at 0149, Created by cabinet override fentaNYL (SUBLIMAZE) injection 25 mcg 25 mcg, Intravenous, Every 5 min PRN, Moderate pain (Scale 4 - 7), Moderate pain, 4 doses, Starting on Sun08/13/19 at 1533, Until Sun08/13/19 at 1732, Maximum cumulative dose 100 mcg. Do not administer if patient is overly sedated, SpO2 less than 90%, or Respiratory Rate less than 12. If more than one IV analgesic is ordered per pain level, use in this order: fentaNYL, morphine, HYDROmorphone. If desired pain control is not reached, move to next ordered medication at next dosing interval., PACU Given 08/13/2019 4:45 PM CDT 25 mcg fentaNYL (SUBLIMAZE) injection 50 mcg 50 mcg, Intravenous, Once, 1 dose, On Sun08/12/19 at 0200, If intravenous (IV) route has been ordered, give over 1-2 minutes. Given 08/12/2019 1:49 AM CDT 50 mcg furosemide (LASIX) injection 10 mg 10 mg, Intravenous, Once, 1 dose, On Viky 08/14/19 at 0815, Administer IV push 20-40mg/min. Given 08/14/2019 9:06 AM CDT 10 mg heparin (porcine) injection 5,000 Units 5,000 Units, Subcutaneous, Every 12 hours scheduled (2 times per day), First dose on Sun08/13/19 at 0900, Until Discontinued Given 08/14/2019 9:06 AM CDT 5,000 Units Right Lower Abdomen Given 08/13/2019 8:47 PM CDT 5,000 Units R ight Lower Abdomen HYDROcodone-acetaminophen (NORCO) 10-325 MG tablet 1 tablet 1 tablet, Oral, Every 4 hours PRN, Severe pain (Scale 8 - 10), Starting on Sun08/13/19 at 1745, Until Sun08/14/19 at 1957, Maximum dose of acetaminophen is 4000 mg from all sources in 24 hours. Usulaay begin after UTILIZATION SUPERVISOR stopped., Post-Op Given 08/14/2019 4:52 PM CDT 1 tablet Given 08/14/2019 9:05 AM CDT 1 tablet HYDROmorphone (DILAUDID) injection 0.5 mg 0.5 mg, Intravenous, Every 4 hours PRN, Severe pain (Scale 8 - 10), Starting on Sun08/13/19 at 1613, Until Sun08/14/19 at 1957, Administer slowly over at least 2-3 minutes. Given 08/14/2019 4:33 AM CDT 0.5 mg Given 08/13/2019 10:48 PM CDT 0.5 mg insulin lispro (HUMALOG) injection 0-14 Units 0-14 Units, Subcutaneous, Every 6 hours, First dose on Sun08/12/19 at 0600, Until Discontinued, Blood Glucose (SENSITIVE Dosing): [Less than 70: Initiate Hypoglycemia Standing Orders] [71-140: 0 units] [141-180: 2 units] [181-220: 4 units] [221-260: 6 units] [261-300: 8 units] [301-350: 10 units] [351-400: 12 units] [Greater than 400: 14 units and Call Physician] Given 08/14/2019 1:23 PM CDT 6 Units Right Arm Given 08/14/2019 6:28 AM CDT 4 Units Le ft Arm Given 08/13/2019 6:31 PM CDT 2 Units Le ft Arm insulin regular (NOVOLIN R/HUMULIN R) injection 2 Units 2 Units, Intravenous, Once, 1 dose, On Sun08/13/19 at 1245, For sliding scale, activate Sliding Scale Insulin order set. Given 08/13/2019 12:21 PM CDT 2 Units iopamidol (ISOVUE-370) 76 % injection 100 mL 100 mL, Intravenous, IMG once as needed, Contrast, 1 dose, Starting on Sun08/11/19 at 2230, Until Sun08/11/19 at 2230 Given 08/11/2019 10:30 PM CDT 100 mLs L eft Arm lactated ringers infusion at 10 mL/hr, Intravenous, Continuous, Starting on Sun08/13/19 at 1215, Until Viky 08/14/19 at 1957, Infuse at TKO rate, Pre-Op New Bag 08/13/2019 3:17 PM CDT New Bag 08/13/2019 12:34 PM CDT lactated ringers infusion at 100 mL/hr, Intravenous, Continuous, Starting on Sun08/13/19 at 1600, Until Sun08/14/19 at 1957, PACU lisinopril (PRINIVIL) tablet 40 mg 40 mg, Oral, Nightly, First dose on Sun08/12/19 at 2100, Until Discontinued Given 08/13/2019 8:47 PM CDT 40 mg Given 08/12/2019 8:47 PM CDT 40 mg magnesium hydroxide (MILK OF MAGNESIA) 400 MG/5ML suspension 15 mL 15 mL, Oral, Daily as needed, Constipation, Starting on Sun08/12/19 at 0410, Until Sun08/13/19 at 1616, Shake Well Given 08/12/2019 3:04 PM CDT 15 mLs metoclopramide (REGLAN) injection 10 mg 10 mg, Intravenous, Every 8 hours, First dose on Sun08/13/19 at 1815, Until Discontinued, After UTILIZATION SUPERVISOR stopped, may go to q 6 hours PRN., Post-Op Given 08/13/2019 6:31 PM CDT 10 mg metoprolol tartrate (LOPRESSOR) tablet 50 mg 50 mg, Oral, 2 times daily, First dose on Sun08/12/19 at 0900, Until Discontinued Given 08/14/2019 9:05 AM CDT 50 mg Given 08/13/2019 8:47 PM CDT 50 mg Given 08/13/2019 8:38 AM CDT 50 mg morphine injection 2 mg 2 mg, Intravenous, Every 3 hours PRN, Severe pain (Scale 8 - 10), Starting on Sun08/12/19 at 0410, Until Sun08/13/19 at 1620 Given 08/12/2019 11:26 PM CDT 2 mg Given 08/12/2019 5:31 PM CDT 2 mg Given 08/12/2019 11:25 AM CDT 2 mg morphine injection 2 mg 2 mg, Intravenous, Every 3 hours PRN, Moderate pain (Scale 4 - 7), Starting on Sun08/13/19 at 1620, Until Sun08/14/19 at 1957 Given 08/13/2019 8:46 PM CDT 2 mg morphine injection 4 mg 4 mg, Intravenous, Once, 1 dose, On Sun08/11/19 at 2215 Given 08/11/2019 10:30 PM CDT 4 mg ondansetron (ZOFRAN) injection 4 mg 4 mg, Intravenous, Once, 1 dose, On Sun08/11/19 at 2215, IV push over 2-5 minutes. Given 08/11/2019 10:31 PM CDT 4 mg ondansetron (ZOFRAN-ODT) disintegrating tablet 4 mg 4 mg, Oral, Every 8 hours PRN, Nausea, Vomiting, Starting on Sun08/13/19 at 0431, Until Sun08/14/19 at 1957 Given 08/13/2019 4:59 AM CDT 4 mg polyethylene glycol (GLYCOLAX) packet 1 packet 1 packet, Oral, 2 times daily, First dose on Sun08/12/19 at 0900, Until Discontinued, Dissolve powder in 240 mL water Given 08/14/2019 9:06 AM CDT 1 packet Given 08/12/2019 11:25 AM CDT 1 packet Senna (SENOKOT) 8.6 MG tablet 8.6 mg 8.6 mg, Oral, Daily, First dose on Sun08/12/19 at 0900, Until Discontinued Given 08/12/2019 11:30 AM CDT 8.6 mg senna-docusate (SENOKOT-S) 8.6-50 MG tablet 1 tablet 1 tablet, Oral, 2 times daily, First dose on Sun08/13/19 at 2100, Until Discontinued, Post-Op Given 08/14/2019 9:05 AM CDT 1 tablet Given 08/13/2019 8:47 PM CDT 1 tablet simethicone (MYLICON) chewable tablet 80 mg 80 mg, Oral, 4 times daily PRN, Flatulence, Starting on Sun08/13/19 at 1745, Until Sun08/14/19 at 1957, Post-Op Given 08/14/2019 3:20 AM CDT 80 mg sodium chloride 0.9% bolus infusion SOLN 500 mL 500 mL, Intravenous, Administer over 15 Minutes, Once, 1 dose, On Sun08/11/19 at 2215 New Bag 08/11/2019 10:30 PM CDT 500 mLs sodium chloride 0.9% infusion at 100 mL/hr, Intravenous, Continuous, Starting on Sun08/11/19 at 2215, Until Sun08/14/19 at 1957 New Bag 08/14/2019 11:48 AM CDT 100 mL/hr New Bag 08/14/2019 1:13 AM CDT 100 mL/hr New Bag 08/13/2019 9:55 AM CDT 100 mL/hr vasopressin (PITRESSIN) 20 Units in sodium chloride 0.9 % 20 mL injection As needed, Starting on Sun08/13/19 at 1532, Until Sun08/13/19 at 1602, Intra-Op Given 08/13/2019 3:32 PM CDT 9 mLs documented in this encounter Active and Recently Administered Medications Times are shown in CDT. Scheduled Medication Order 08/12/2019 08/13/2019 08/14/2019 aspirin EC (ECOTRIN) tablet 81 mg 81 mg, Oral, Daily, First dose on Sun08/12/19 at 0900, Until Discontinued, Do not break, chew, or crush. 1125 (Given - Provider: Sandy Bell RN) 0845 (Not Given - Provider: Sandy Bell RN - Reason: NPO - Comment: surgery planned)1254 (MAR Hold - Provider: User Teamie - Reason: Unreviewed Transfer Orders)1559 (APR Unhold - Provider: User Epic) 0905 (Given - Provider: Tomeka Collins RN) atorvastatin (LIPITOR) tablet 20 mg 20 mg, Oral, Daily, First dose on Sun08/12/19 at 0900, Until Discontinued 1001 (Given - Provider: Sandy Bell RN) 0845 (Not Given - Provider: Sandy Bell RN - Reason: NPO)1254 (APR Hold - Provider: User Epic - Reason: Unreviewed Transfer Orders)1559 (APR Unhold - Provider: User Epic) 0905 (Given - Provider: Tomeka Collins, RN) bisacodyl EC (DULCOLAX) tablet 10 mg 10 mg, Oral, Once, 1 dose, On Sun08/14/19 at 1430, Do not break, chew, or crush. 1645 (Not Given - Provider: Tomeka Collins, RN - Reason: Medication not available) clindamycin (CLEOCIN) 600 mg in sodium chloride 0.9 % 50 mL IVPB (COMPLETED) 600 mg, Intravenous, at 100 mL/hr, scallop cutter to O.R., 1 dose, First dose on Sun08/13/19 at 1145 1254 (APR Hold - Provider: User Epic - Reason: Unreviewed Transfer Orders)1300 (New Bag - Provider: Mikayla Chandler CRNA)1559 ([facility] Unhold - Provider: User Epic) docusate sodium (COLACE) capsule 100 mg 100 mg, Oral, 2 times daily, First dose on Sun08/12/19 at 0900, Until Discontinued 1001 (Given - Provider: Sandy Bell RN)2047 (Given - Provider: Ashanti Amor, DEANDRE) 0845 (Not Given - Provider: Sandy Bell RN - Reason: NPO)1254 (APR Hold - Provider: User Epic - Reason: Unreviewed Transfer Orders)1559 ([facility] Unhold - Provider: User Epic)2047 (Given - Provider: Ashanti Amor, DEANDRE) 0905 (Given - Provider: Tomeka Collins, DAENDRE) fentaNYL (SUBLIMAZE) injection 50 mcg (COMPLETED) 50 mcg, Intravenous, Once, 1 dose, On Sun08/12/19 at 0200, If intravenous (IV) route has been ordered, give over 1-2 minutes. 0149 (Given - Provider: Joel Morton, DEANDRE) furosemide (LASIX) injection 10 mg (COMPLETED) 10 mg, Intravenous, Once, 1 dose, On Sun08/14/19 at 0815, Administer IV push 20-40mg/min. 0906 (Given - Provid er: Tomeka Collins RN) gentamicin (GARAMYCIN) 120 mg in sodium chloride 0.9 % 100 mL IVPB (COMPLETED) 120 mg, Intravenous, at 100 mL/hr, scallop cutter to O.R., 1 dose, First dose on Sun08/13/19 at 1145 1254 (APR Hold - Provider: User Epic - Reason: Unreviewed Transfer Orders)1300 (New Bag - Provider: Mikayla Chandler CRNA)1559 (APR Unhold - Provider: User Epic) heparin (porcine) injection 5,000 Units(Linked Group 1) 5,000 Units, Subcutaneous, Every 12 hours scheduled (2 times per day), First dose on Sun08/13/19 at 0900, Until Discontinued 0845 (Not Given - Provider: Sandy Bell RN - Reason: Other - Comment: surgery scheduled)1254 (APR Hold - Provider: User Epic - Reason: Unreviewed Transfer Orders)1559 (APR Unhold - Provider: User Epic)2047 (Given - Provider: Ashanti Amor RN) 0906 (Given - Provider: Tomeka Collins RN) insulin lispro (HUMALOG) injection 0-14 Units 0-14 Units, Subcutaneous, Every 6 hours, First dose on Sun08/12/19 at 0600, Until Discontinued, Blood Glucose (SENSITIVE Dosing): [Less than 70: Initiate Hypoglycemia Standing Orders] [71-140: 0 units] [141-180: 2 units] [181-220: 4 units] [221-260: 6 units] [261-300: 8 units] [301-350: 10 units] [351-400: 12 units] [Greater than 400: 14 units and Call Physician] 0614 (Not Given - Provider: Shelby Martinez RN - Reason: NPO)1226 (Given - Provider: Sandy Bell RN)1731 (Given - Provider: Sandy Blel RN)2328 (Not Given - Provider: Ashanti Amor RN - Reason: NPO) 0522 (Not Given - Provider: Ashanti Amor RN - Reason: NPO)1129 (Not Given - Provider: Sandy Bell RN - Reason: NPO)1254 (APR Hold - Provider: User Epic - Reason: Unreviewed Transfer Orders)1559 (APR Unhold - Provider: User Epic)1831 (Given - Provider: Sandy Bell, DEANDRE)2320 (Not Given - Provider: Ashanti Amor RN - Reason: Patient/family declined) 0628 (Given - Provider: Ashanti Amor RN)1323 (Given - Provider: Tomeka Collins, DEANDRE)1800 (Canceled Entry - Provider: Automatic Discharge Provider - Comment: Automatically canceled at discontinue of medication order) insulin regular (NOVOLIN R/HUMULIN R) injection 2 Units (COMPLETED) 2 Units, Intravenous, Once, 1 dose, On Sun08/13/19 at 1245, For sliding scale, activate Sliding Scale Insulin order set. 1221 (Given - Provider: Harini Mcneal RN)1748 (Not Given - Provider: Sandy Bell RN - Reason: Other) lisinopril (PRINIVIL) tablet 40 mg 40 mg, Oral, Nightly, First dose on Sun08/12/19 at 2100, Until Discontinued 2046 (Given - Provider: Ashanti Amor RN) 1254 (APR Hold - Provider: User Epic - Reason: Unreviewed Transfer Orders)1559 (APR Unhold - Provider: User Epic)204 (Given - Provider: Ashanti Amor RN) metoclopramide (REGLAN) injection 10 mg 10 mg, Intravenous, Every 8 hours, First dose on Sun08/13/19 at 1815, Until Discontinued, After UTILIZATION SUPERVISOR stopped, may go to q 6 hours PRN., Post-Op 1831 (Given - Provider: Sandy Bell, DEANDRE) 0127 (Not Given - Provider: Ashanti Amor RN - Reason: Patient sleeping)1145 (Not Given - Provider: Tomeka Collins, DEANDRE - Reason: Patient/family declined)1815 (Canceled Entry - Provider: Automatic Discharge Provider - Comment: Automatically canceled at discontinue of medication order) metoprolol tartrate (LOPRESSOR) tablet 50 mg 50 mg, Oral, 2 times daily, First dose on Sun08/12/19 at 0900, Until Discontinued 112 (Given - Provider: Sandy Bell RN)2046 (Given - Provider: Ashanti Amor RN) 0838 (Given - Provider: Sandy Bell RN)1254 ([facility] Hold - Provider: User Epic - Reason: Unreviewed Transfer Orders)155 ([facility] Unhold - Provider: User Epic)2046 (Given - Provider: Ashanti Amor RN) 0905 (Given - Provider: Tomeka Collins, DEANDRE) polyethylene glycol (GLYCOLAX) packet 1 packet 1 packet, Oral, 2 times daily, First dose on Sun08/12/19 at 0900, Until Discontinued, Dissolve powder in 240 mL water 112 (Given - Provider: Sandy Bell RN)2045 (Not Given - Provider: Ashanti Amor RN - Reason: Patient/family declined) 0845 (Not Given - Provider: Sandy Bell RN - Reason: NPO)1254 ([facility] Hold - Provider: User Epic - Reason: Unreviewed Transfer Orders)155 ([facility] Unhold - Provider: User Epic)213 (Not Given - Provider: Ashanti Amor RN - Reason: Patient/family declined) 0906 (Given - Provider: Tomeka Collins, DEANDRE) Senna (SENOKOT) 8.6 MG tablet 8.6 mg (CANCELED) 8.6 mg, Oral, Daily, First dose on Sun08/12/19 at 0900, Until Discontinued 1130 (Given - Provider: Sandy Bell RN) 0846 (Not Given - Provider: Sandy Bell RN - Reason: NPO)1254 ([facility] Hold - Provider: User Epic - Reason: Unreviewed Transfer Orders)155 ([facility] Unhold - Provider: User Epic) senna-docusate (SENOKOT-S) 8.6-50 MG tablet 1 tablet 1 tablet, Oral, 2 times daily, First dose on Sun08/13/19 at 2100, Until Discontinued, Post-Op 2046 (Given - Provider: Ashanti Amor, RN) 0905 (Given - Provider: Tomeka Collins, RN) Continuous Medication Order 08/12/2019 08/13/2019 08/14/2019 lactated ringers infusion at 10 mL/hr, Intravenous, Continuous, Starting on Sun08/13/19 at 1215, Until Viky 08/14/19 at 1957, Infuse at TKO rate, Pre-Op 1234 (New Bag - Provider: Mikayla Chandler CRNA)1517 (New Bag - Provider: Mikayla Chandler CRNA)1602 (Infusion Stop Time - Provider: Mikayla Chandler CRNA) lactated ringers infusion at 100 mL/hr, Intravenous, Continuous, Starting on Sun08/13/19 at 1600, Until Viky 08/14/19 at 1957, PACU 1749 (Not Given - Provider: Sandy Bell, DEANDRE - Reason: Other) lactated ringers infusion at 100 mL/hr, Intravenous, Continuous, Starting on Sun08/13/19 at 1815, Until Viky 08/14/19 at 1957, Post-Op 1750 (Not Given - Provider: Sandy Bell, DEANDRE - Reason: Patient already took - Comment: bag already hanging) sodium chloride 0.9% infusion at 100 mL/hr, Intravenous, Continuous, Starting on Sun08/11/19 at 2215, Until Viky 08/14/19 at 1957 0414 (New Bag - Provider: Shelby Martinez RN)1424 (New Bag - Provider: Sandy Bell, DEANDRE)2326 (New Bag - Provider: Ashanti Amor, RN) 0955 (New Bag - Provider: Sandy Bell, RN)1254 (APR Hold - Provider: User Epic - Reason: Unreviewed Transfer Orders)1559 (MAR Unhold - Provider: User Epic) 0113 (New Bag - Provider: Ashanti Amor, RN)1148 (New Bag - Provider: Tomeka Collins, RN) PRN Medication Order 08/12/2019 08/13/2019 08/14/2019 acetaminophen (TYLENOL) tablet 650 mg 650 mg, Oral, Every 4 hours PRN, Mild pain (Scale 1 - 3), Headaches, Fever, Starting on Sun08/12/19 at 0410, Until Viky 08/14/19 at 195, Maximum dose of acetaminophen is 4000 mg from all sources in 24 hours. 1254 (APR Hold - Provider: User Epic - Reason: Unreviewed Transfer Orders)1559 (APR Unhold - Provider: User Epic) bisacodyl (DULCOLAX) suppository 10 mg 10 mg, Rectal, Daily as needed, Constipation, Starting on Sun08/13/19 at 1745, Until Viky 08/14/19 at 195, Post-Op BUpivacaine (PF) (MARCAINE) 0.5 % injection (CANCELED) As needed, Starting on Sun08/13/19 at 1531, Until Sun08/13/19 at 1602, Intra-Op 1531 (Given - Provider: Mikayla Perez DO) fentaNYL (SUBLIMAZE) injection 25 mcg (CANCELED) 25 mcg, Intravenous, Every 5 min PRN, Moderate pain (Scale 4 - 7), Moderate pain, 4 doses, Starting on Sun08/13/19 at 1533, Until Sun08/13/19 at 1732, Maximum cumulative dose 100 mcg. Do not administer if patient is overly sedated, SpO2 less than 90%, or Respiratory Rate less than 12. If more than one IV analgesic is ordered per pain level, use in this order: fentaNYL, morphine, HYDROmorphone. If desired pain control is not reached, move to next ordered medication at next dosing interval., PACU 1645 (Given - Provider: Soraya Matos RN) HYDROcodone-acetaminophen (NORCO) 10-325 MG tablet 1 tablet 1 tablet, Oral, Every 4 hours PRN, Severe pain (Scale 8 - 10), Starting on Sun08/13/19 at 1745, Until Viky 08/14/19 at 195, Maximum dose of acetaminophen is 4000 mg from all sources in 24 hours. Usulaay begin after UTILIZATION SUPERVISOR stopped., Post-Op 09 (Given - Provider: Tomeka Collins RN)165 (Given - Provider: Benjamin Newell RN) HYDROcodone-acetaminophen (NORCO) 5-325 MG tablet 1 tablet 1 tablet, Oral, Every 4 hours PRN, Moderate pain (Scale 4 - 7), Starting on Sun08/13/19 at 1745, Until Viky 08/14/19 at 1957, Maximum dose of acetaminophen is 4000 mg from all sources in 24 hours. Usually begin after UTILIZATION SUPERVISOR stopped., Post-Op HYDROmorphone (DILAUDID) injection 0.5 mg 0.5 mg, Intravenous, Every 4 hours PRN, Severe pain (Scale 8 - 10), Starting on Sun08/13/19 at 1613, Until Viky 08/14/19 at 195, Administer slowly over at least 2-3 minutes. 2248 (Given - Provider: Ashanti Amor RN) 0433 (Given - Provider: Ashanti Amor RN) magnesium hydroxide (MILK OF MAGNESIA) 400 MG/5ML suspension 15 mL (CANCELED) 15 mL, Oral, Daily as needed, Constipation, Starting on Sun08/12/19 at 0410, Until Sun08/13/19 at 1616, Shake Well 1504 (Given - Provider: Sandy Bell RN) 1254 (MAR Hold - Provider: User Teamie - Reason: Unreviewed Transfer Orders)1559 (MAR Unhold - Provider: User Epic) magnesium hydroxide (MILK OF MAGNESIA) 400 MG/5ML suspension 30 mL 30 mL, Oral, 2 times daily PRN, Constipation, Starting on Sun08/13/19 at 1745, Until Viky 08/14/19 at 195, Shake Well, Post-Op [id number] icone (MYLANTA MAXIMUM STRENGTH) 8442-1275-776 mg/30mL suspension 10 mL, Oral, Every 4 hours PRN, Indigestion, Heartburn, Starting on Sun08/13/19 at 1745, Until Viky 08/14/19 at 1957, Shake Well, Post-Op morphine injection 2 mg (CANCELED) 2 mg, Intravenous, Every 3 hours PRN, Severe pain (Scale 8 - 10), Starting on Sun08/12/19 at 0410, Until Sun08/13/19 at 1620 1125 (Given - Provider: Sandy Bell RN)1731 (Given - Provider: Sandy Bell RN)2326 (Given - Provider: Ashanti Amor RN) 1254 (APR Hold - Provider: User Epic - Reason: Unreviewed Transfer Orders)1559 (APR Unhold - Provider: User Epic) morphine injection 2 mg 2 mg, Intravenous, Every 3 hours PRN, Moderate pain (Scale 4 - 7), Starting on Sun08/13/19 at 1620, Until Viky 08/14/19 at 195 2046 (Given - Provider: Ashanti Amor RN) naLOXone (NARCAN) injection 0.4 mg 0.4 mg, Intravenous, As needed, Opioid reversal, Starting on Sun08/13/19 at 1608, Until Viky 08/14/19 at 195 ondansetron (ZOFRAN) injection 4 mg 4 mg, Intravenous, Every 8 hours PRN, Nausea, Vomiting, Starting on Sun08/13/19 at 1745, Until Viky 08/14/19 at 1957, Discontinue IV Zofran once able to take PO, Post-Op ondansetron (ZOFRAN-ODT) disintegrating tablet 4 mg 4 mg, Oral, Every 8 hours PRN, Nausea, Vomiting, Starting on Sun08/13/19 at 0431, Until Viky 08/14/19 at 195 0459 (Given - Provider: Ashanti Amor RN)1254 (APR Hold - Provider: User Epic - Reason: Unreviewed Transfer Orders)1559 ([facility] Unhold - Provider: User Epic) simethicone (MYLICON) chewable tablet 80 mg 80 mg, Oral, 4 times daily PRN, Flatulence, Starting on Sun08/13/19 at 1745, Until Viky 08/14/19 at 1957, Post-Op 0320 (Given - Provider: Ashanti Amor RN) vasopressin (PITRESSIN) 20 Units in sodium chloride 0.9 % 20 mL injection (CANCELED) As needed, Starting on Sun08/13/19 at 1532, Until Sun08/13/19 at 1602, Intra-Op 1532 (Given - Provider: Mikayla Perez DO) Linked Groups Order Group 1: heparin (porcine) injection 5,000 UnitsJump to med 5,000 Units, Subcutaneous, Every 12 hours scheduled (2 times per day), First dose on Sun08/13/19 at 0900, Until Discontinued And Moderate Risk for VTE (COMPLETED) documented in this encounter Care Teams Aircrewman Relationship Specialty Start Date End Date Jarred Fernández MD PCP - General FAMILY PRACTICE 07/21/15 09/30/20 documented as of this encounter
--- OUTSIDE RECORDS SUMMARY | 2024-03-02 22:31 | XMS_ITS | Encounter Summary ---
Author Organization [facility] Address [address] [place] [address]. [place] [address] [place] [address] Care Team Providers Care Core Shaper Top Name Role Phone Jarred Rod MD Primary Care Provider Unav ailable Encounter Details Date Type Department Care Team (Latest Contact Info) Description 11/11/2019 Travel Social History Tobacco Use Types Packs/Day [...] have Coronavirus / COVID-19? No / Unsure 11/11/2019 11:50 PM CDT documented as of this encounter [...] st Contact Info) Description 03/14/2024 11:45 AM AUDIO VISUAL TECH Office Visit [facility] [phone] Marvin Mckeon MD [facility] [address] [place] [address] 03/20/2024 11:30 AM AUDIO VISUAL TECH Office Visit [facility] Family Medicine - [address] [phone] Abiodun Segura II, MD [address] [place] [id number] documented as of this encounter Visit Diagnoses Not on filedocumented in this encounter Care Teams Core Shaper Top Relationship Specialty Start Date End Date Jarred Rod MD PCP - General FAMILY PRACTICE 07/21/15 09/30/20 documented as of this encounter
--- OUTSIDE RECORDS SUMMARY | 2024-03-02 22:31 | XMS_ITS | Encounter Summary ---
Author Organization [facility] Address [address] [place] [address]. [place], [place] [address] [place] [address] Care Team Providers Care Cable Machine Operator Name Role Phone Jarred Rod MD Primary Care Provider Unav ailable Shira Shi PA-C Primary Care Provider [phone] Jarred Rod MD Primary Care Provider Unav ailable Colton SILVEIRA MD, Abiodun L Primary Care Provider Jarred Rod MD Primary Care Provider Unav ailable Reason for Visit * Reason Comments Ultrasound (SCAN) CT (SCAN) Encounter Details Date Type Department Care Team (Late st Contact Info) Description 07/02/2019 Scan HEALTH INFO SRVCS Scanned, Documents Ultrasound (SCAN); CT (SCAN) Social History Tobacco Use [...] COVID-19? No / Unsure 01/24/2021 11:10 AM PROOF PLATE MAKER documented as of this encounter Functional [...] st Contact Info) Description 03/14/2024 11:45 AM PROOF PLATE MAKER Office Visit [facility] [phone] Marvin Mckeon MD [facility] [address] [place] [address] 03/20/2024 11:30 AM PROOF PLATE MAKER Office Visit [facility] Family Medicine - [place] [address] [place] [address] Abiodun Segura II, MD [address] [place] [address] documented as of this encounter Procedures Procedure Name Priority Date/Time Associated Diagnosis Comments CT GENERIC 07/02/2019 ULTRASOUND GENERIC (SCAN ORDER) 07/02/2019 documented in this encounter Results * CT GENERIC (07/02/2019) Anatomical Region Laterality Modality Other 07/02/2019 Narrative 07/02/2019 Ordered by an unspecified provider. us Documents Scanned SCANNING Final Result * ULTRASOUND GENERIC (07/02/2019) Anatomical Region Laterality Modality Other 07/02/2019 Narrative 07/02/2019 Ordered by an unspecified provider. us Documents [...] COVID-19 Confirmed 12/13/2019 12/13/2019 0 12:34 AM PROOF PLATE MAKER documented as of this encounter Care Teams Cable Machine Operator Relationship Specialty Start Date End Date Jarred Rod MD PCP - General FAMILY PRACTICE 07/21/15 09/30/20 Shira Shi PA-C [address] [place] [address] PCP - General PHYSICIAN CLIENT ARCHITECT 10/01/20 11/17/20 Jarred Rod MD [address] [place] [address] PCP - General FAMILY PRACTICE 11/18/20 12/05/20 Abiodun Segura II, MD [address] [place] [address] PCP - General FAMILY PRACTICE 12/06/20 01/16/21 Jarred Rod MD [address] [place] [address] PCP - General FAMILY PRACTICE 01/17/21 03/08/21 documented as of this encounter
--- OUTSIDE RECORDS SUMMARY | 2024-03-02 22:31 | XMS_ITS | Encounter Summary ---
Author Organization [facility] Address [address] [place] [address]. [place] [address] [place] [address] Care Team Providers Care Mechatronics Technician Name Role Phone Jarred Rod MD Primary Care Provider Unav ailable Encounter Details Date Type Department Care Team (Latest Contact Info) Description 11/02/2019 11:55 AM CDT - 11/02/2019 11:59 PM CDT Hospital Encounter [facility] [place], [place] [id number] Edson Chappell MD [address] [place] [address] Discharge Disposition: Home or Self Care [...] have Coronavirus / COVID-19? No / Unsure 10/30/2019 11:44 AM CDT documented as of this encounter [...] 10/07/2018 1 documented as of this encounter Plan of Treatment Upcoming Encounters Date Type Department Care Team (Late st Contact Info) Description 03/14/2024 11:45 AM ELEMENTARY SCHOOL READING TEACHER Office Visit [facility] [address] Marvin Mckeon MD [facility] [address] [place] [address] 03/20/2024 11:30 AM ELEMENTARY SCHOOL READING TEACHER Office Visit [facility] Family Medicine - [place] [address] [place] [phone] Abiodun Segura II, MD [address] [place] [address] documented as of this encounter Procedures Procedure Name Priority Date/Time Associated Diagnosis Comments CORONAVIRUS (COVID 19) STAT 11/02/2019 9:38 AM CDT Preop Examination documented in this encounter Results * PRE-SURGICAL/PRE-PROCEDURE CORONAVIRUS (COVID 19) (11/02/2019 9:38 AM CDT) CORONAVIRUS SARS COV 2 PCR (RESP) NOT DETECTED NOT DETECTED 11/03/2019 3:21 PM CDT [facility] Comment: A Not Detected (negative) test result for this test means that SARS- CoV-2 RNA was not present in the specimen above the limit of detection. A negative result does not rule out the possibility of COVID-19 and should not be used as the sole basis for treatment or patient management decisions. ??If COVID-19 is still suspected, based on exposure history together with other clinical findings, re-testing should be considered in consultation with public health authorities. Laboratory test results should always be considered in the context of clinical observations and epidemiological data in making a final diagnosis and patient management decisions. Please review the Fact Sheets and FDA authorized labeling available for health care providers and patients using the following websites: https://[email or web address].inSelly/home/Covid-19/HCP/NAAT/fact-sheet2 https://www.[employer].inSelly/home/Covid-19/Patients/NAAT/ fact-sheet2 This test has been authorized by the FDA under an Emergency Use Authorization (EUA) for use by authorized laboratories. Due to the current public health emergency, [facility] is receiving a high volume of samples [...] Methodology: ??Nucleic Acid Amplification Test (NAAT) includes PCR or TMA Additional information about COVID-19 can be found at the [facility] website: www.[email or web address].inSelly/Covid19. Test performed at [facility] [address] ??[id number] Director: JOE FORBES DO,MPH FIRST TEST NO 11/02/2019 12:57 PM CDT [facility] EMPLOYED IN HEALTHCARE NO 11/02/2019 12:57 PM CDT [facility] SYMPTOMATIC DEFINED BY CDC NO 11/02/2019 12:57 PM CDT [facility] DATE OF SYMPTOM ONSET UNKNOWN 11/02/2019 1:17 PM CDT [facility] HOSPITALIZATION STATUS NO 11/02/2019 12:57 PM CDT [facility] PATIENT IN ICU NO 11/02/2019 12:57 PM CDT [facility] RESIDENT OF [facility] CARE NO 11/02/2019 12:57 PM CDT [facility] NOT 11/02/2019 12:57 PM CDT [facility] PATIENT'S RACE BLACK OR 11/02/2019 12:57 PM CDT [facility] ETHNICITY NONHISPANIC 11/02/2019 12:57 PM CDT [facility] SOURCE (QST) NASOPHARYNGEAL SWAB 11/02/2019 12:57 PM CDT [facility] NASOPHARYNGEAL SWAB / Unknown 11/02/2019 9:38 AM CDT us Edson Chappell MD MICROBIOLOGY - GENERAL OR DERABLES Final Result Performing Organization Address City/State/[facility] Co de Phone Number [facility] [address] [place] [address], [facility] [id number] [place] [address] documented in this encounter Visit Diagnoses Diagnosis Preop examination Preoperative examination, unspecified documented in this encounter Additional Health Concerns Infection Onset Date Last Indicated Resolved Time COVID-19 Rule Out 11/02/2019 11/02/2019 11/03/2019 3:22 PM CDT documented as of this encounter Care Teams Mechatronics Technician Relationship Specialty Start Date End Date Jarred Rod MD PCP - General FAMILY PRACTICE 07/21/15 09/30/20 documented as of this encounter
--- OUTSIDE RECORDS SUMMARY | 2024-03-02 22:31 | XMS_ITS | Encounter Summary ---
Author Organization [facility] Address [address] [place] [address]. [place], [place] [phone] [place] [address] Care Team Providers Care Dry Paste Supervisor Name Role Phone Jarred Rod MD Primary Care Provider Unav ailable Encounter Details Date Type Department Care Team (Latest Contact Info) Description 08/11/2019 Travel Social History Tobacco Use Types Packs/Day [...] PM CDT documented as of this encounter Plan of Treatment Upcoming Encounters Date Type Department Care Team (Late st Contact Info) Description 03/14/2024 11:45 AM ELECTRIC MOTOR WINDERS ASSEMBLER Office Visit [facility] [address] Marvin Mckeon MD [facility] [address] [place] [address] 03/20/2024 11:30 AM ELECTRIC MOTOR WINDERS ASSEMBLER Office Visit [facility] Family Medicine - [address] [place] [phone] Abiodun Segura II, MD [address] [place] [address] documented as of this encounter Visit Diagnoses Not on filedocumented in this encounter Care Teams Dry Paste Supervisor Relationship Specialty Start Date End Date Jarred Rod MD PCP - General FAMILY PRACTICE 07/21/15 09/30/20 documented as of this encounter
--- OUTSIDE RECORDS SUMMARY | 2024-03-02 22:31 | XMS_ITS | Encounter Summary ---
Author Organization [facility] Address [address] [place] [address]. [place], [place] [address] [place] [address] Care Team Providers Care Printing Equipment Mechanic Apprentice Name Role Phone Jarred Rod MD Primary Care Provider Unav ailable Encounter Details Date Type Department Care Team (Latest Contact Info) Description 07/02/2019 Travel Social History Tobacco Use Types Packs/Day [...] AM CDT documented as of this encounter Plan of Treatment Upcoming Encounters Date Type Department Care Team (Late st Contact Info) Description 03/14/2024 11:45 AM THERAPIST PHYS Office Visit [facility] [address] Marvin Mckeon MD [facility] [address] [place] [address] 03/20/2024 11:30 AM THERAPIST PHYS Office Visit [facility] Family Medicine - [address] [place] [phone] Abiodun Segura II, MD [address] [place] [address] documented as of this encounter Visit Diagnoses Not on filedocumented in this encounter Care Teams Printing Equipment Mechanic Apprentice Relationship Specialty Start Date End Date Jarred Rod MD PCP - General FAMILY PRACTICE 07/21/15 09/30/20 documented as of this encounter
--- OUTSIDE RECORDS SUMMARY | 2024-03-02 22:31 | XMS_ITS | Encounter Summary ---
Author Organization [facility] Address [address] [place] [address]. [place] [address] [place] [address] Care Team Providers Care Marine Animal Trainer Name Role Phone Jarred Fernández MD Primary Care Provider Unav ailable Reason for Visit * Reason Comments Pleuritic Chest Pain Breathing Problem Suspected Coronavirus (Covid-19) Encounter Details Date Type Department Care Team (Late st Contact Info) Description 09/22/2019 2:07 PM CDT - 09/22/2019 5:14 PM CDT Emergency [facility] Emergency [place] [address] Sisi Mancilla PA [address] [place] [address] Pleuritic Chest Pain; Breathing Problem; Suspected Coronavirus (Covid-19) Discharge Disposition: Home or Self Care (Routine [...] or suspected to have Coronavirus / COVID-19? Yes 09/22/2019 2:15 PM CDT documented as of this encounter Last Filed Vital Signs Vital Sign Reading Time Taken Comments Blood Pressure 176/99 09/22/2019 4:41 PM CDT Pulse 100 09/22/2019 4:41 PM CDT Temperature 36.2 ??C (97.2 ??F) 09/22/2019 2:18 PM CD T Respiratory Rate 20 09/22/2019 4:41 PM CDT Oxygen Saturation 100% 09/22/2019 4:41 PM CDT Inhaled Oxygen Concentration - - Weight 88.5 kg (195 lb) 09/22/2019 2:18 PM CDT Height 167.6 cm (5' 6 ) 09/22/2019 2:18 PM CDT Body Mass Index 31.47 09/22/2019 2:18 PM CDT documented in this encounter Functional [...] Instructions * Discharge Instructions* CYNTHIA Garsia - 09/22/2019 4:29 PM CDT Your symptoms are suggestive of COVID-19 I feel that testing would be appropriate at this time. Your sample will be sent off and you should receive a call about the results in the next few days. Please self quarantine yourself and any contacts for the next 14 days (or until you have had negative COVID test and your symptoms have resolved for 3 days). Drink plenty of fluids and get plenty of rest.If you feel worse especially if you feel short of breath (cannot walk to bathroom without feeling very winded) then please return to the ER. COVID-19 Symptoms, Spread and Prevention: https://www.dhs.[place].gov/publications/e57212.pdf Self-Isolation for Individuals Being Evaluated for COVID-19: https://www.dhs.[place].gov/publications/x19290.pdf * Attachments The following attachments cannot be sent through Care Everywhere. * Coronavirus Disease 2019 (COVID-19) Discharge Instructions (Swiss) documented in this encounter Medications at Time of Discharge aspirin EC 81 MG tablet Take 81 mg by mouth daily. 01/22/2019 0 cyclobenzaprine 5 MG tablet Take 5 mg [...] as of this encounter Progress Notes * CYNTHIA Babb - 09/22/2019 5:14 PM CDT S/w pt regarding results. Reiterated return precautions documented in this encounter ED Notes * Bre Rogers RN - 09/22/2019 3:17 PM CDT Pt not very cooperative but covid swab obtained as best as possible * CYNTHIA Garsia - 09/22/2019 3:02 PM CDT [place], [place] EMERGENCY DEPARTMENT ENCOUNTER HISTORICAL INFORMATION Primary Care Doctor: JARRED FERNÁNDEZ MD Patient information was obtained primarily from the patient, nursing notes History/Exam limitations: None Provider at Bedside Date/Time Event User Comments 09/22/19 2758 Provider at Bedside Assessing Patient SISI MANCILLA CHIEF COMPLAINT Pleuritic Chest Pain; Breathing Problem; and Suspected Coronavirus (Covid-19) HPI Lena Youngblood is a 49-year-old female who has hx of DM, HTN presents body aches, chills, cough with nausea and diarrhea x 2 days. Pt states she is having cp with coughing. Pt c/o sob with coughing. Pt was around known COVID positive family member last week. No hx of CAD or ID. PAST MEDICAL HISTORY Past Medical History: Diagnosis Date ??? Arthritis ??? Charcot foot due to diabetes mellitus (CMS/HCC) LEFT FOOT ??? Diabetes mellitus (CMS/HCC) ??? Diabetic neuropathy (CMS/HCC) ??? Hypertension ??? Renal disorder ??? UTI (urinary tract infection) Negative unless otherwise noted SURGICAL HISTORY Past Surgical History: Procedure Laterality Date ??? 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 EYE SURGERY ??? FRACTURE SURGERY ??? HYSTERECTOMY ??? RETINAL DETACHMENT SURGERY Right Negative unless otherwise noted CURRENT MEDICATIONS Current Facility-Administered Medications: ??? lisinopril (PRINIVIL) tablet 40 mg, 40 mg, Oral, Once, CYNTHIA Garsia Current Outpatient Medications: ??? aspirin EC 81 MG tablet, Take 81 mg by mouth daily., Disp: , Rfl: ??? docusate sodium 100 MG capsule, Take 1 capsule (100 mg total) by mouth 2 (two) times daily., Disp: 30 capsule, Rfl: 0 ??? HUMALOG MIX 75/25 (75-25) 100 [...] numbers.), Disp: 1 vial, Rfl: 1 ??? hydrochlorothiazide 25 MG tablet, Take 25 mg by mouth nightly., Disp: , Rfl: ??? lisinopril 40 MG tablet, Take 40 mg by mouth nightly. , Disp: , Rfl: ??? metoprolol tartrate 50 MG tablet, Take 50 mg by mouth 2 (two) times a day., Disp: , Rfl: 3 ??? simvastatin 40 MG tablet, Take 40 mg by mouth nightly at bedtime. , Disp: , Rfl: ??? TRULICITY 1.5 MG/0.5ML Solution Pen-injector, Inject 1.5 mg into the skin every 7 days. INJECT ON SUNDAY, Disp: , Rfl: 0 ALLERGIES Allergies Allergen Reactions ??? Amoxicillin Rash ??? Penicillins Rash FAMILY HISTORY Family History Problem Relation Name Age of Onset ??? Diabetes Mother ??? Heart Attack Father Negative unless otherwise noted SOCIAL HISTORY Social [...] file Gets together: Not on file Attends yarsanism service: Not on file Active member of [...] Not Asked Social History Narrative lives with Negative unless otherwise noted REVIEW OF SYSTEMS Review of Systems Constitutional: Positive for chills and fatigue. Negative for fever. Respiratory: Positive for cough and shortness of breath. Cardiovascular: Positive for chest pain. Neurological: Positive for weakness. All other systems reviewed and negative PHYSICAL EXAM VITAL SIGNS: Filed Vitals: 09/22/19 1418 BP: (!) 181/112 Pulse: 100 Resp: 22 Temp: 97.2 ??F (36.2 ??C) TempSrc: Oral SpO2: 98% Weight: 88.5 kg (195 lb) Height: 5' 6 (1.676 m) Constitutional: Well developed, Well nourished, No acute distress, pt coughing in room - appears uncomfortable HENT: Normocephalic, Atraumatic, Bilateral external ears normal, [...] 98% Oxygen Delivery: room air Interpretation: normal EKG (interpreted by ED provider) Sinus tachy with no ischemic changes 106bpm Interpreted by CYNTHIA Mancilla DDX: ACS/ID, COVID, viral syndrome Pertinent Labs: No results found for this visit on 09/22/19. RADIOLOGY XR CHEST PORTABLE (Results Pending) MEDS GIVEN IN ER: Medications lisinopril (PRINIVIL) tablet 40 mg (has no administration in time range) albuterol sulfate HFA 108 (90 Base) MCG/ACT inhaler 2 puff (2 puffs Inhalation Given 09/22/19 1451) ED COURSE & MEDICAL DECISION MAKING Pertinent Labs & Imaging studies reviewed. (See chart for details) The patient's symptoms are that COVID-19 pandemic I will test the patient and instruct the patient to self quarantine for the next 14 days. Pt looks well; afebrile and nontoxic looking. Pt is certainly uncomfortable. Will check labs and ekg and trop and CXR. We discussed symptomatic tx of symptoms including anti-pyretics and hydration. During my encounter I used personal protective equipment. I spoke with pt about return precautions including increasing dyspnea uncontrollable fever or change in mental status. ? Disposition Discussion: I have discussed today's [...] has verbalized understanding of these instructions. DATE: 09/22/2019 3:02 PM PATIENT: Lena Youngblood Discharge Clinical Impressions: Suspected COVID Discharge Condition: stable Discharge Disposition: Patient discharge to home with I spent time answering the patient's questions. Discharge instructions using teach back, understanding assessed and validated. 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 to the exit radio script writer discharge instructions for details surrounding the discharge plan. I did reiterate with the patient that if an urgent need for immediate follow up comes up, not to hesitate to return to the ED. CYNTHIA Garsia PA 09/22/19 1627 Cosigned by Sanchez Vasquez MD at 09/22/2019 6:17 PM CDT * Bre Rogers RN - 09/22/2019 2:20 PM CDT Pt to ed via ems from urgent care with c/o of chest pain when she coughs, headache, nausea, and shortness of breath. Pt states she was in contact Sunday with mother in law who tested positive for covid last Sunday. hx dm * Darlene Suarez RN - 09/22/2019 2:07 PM CDT Bed: 12 Expected date: 09/22/19 Expected time: 1:47 PM Means of arrival: [place] Comments: [id number] documented in this encounter Plan of Treatment Upcoming Encounters Date Type Department Care Team (Late st Contact Info) Description 03/14/2024 11:45 AM OPERATIONS STAFF SPECIALIST SECURITY Office Visit [facility] [phone] Marvin Mckeon MD [address] [facility] [address] [place] [address] 03/20/2024 11:30 AM OPERATIONS STAFF SPECIALIST SECURITY Office Visit [facility] Family [facility] - [place] [address] [place] [phone] Abiodun Segura II, MD [address] [place], [place] [phone] documented as of this encounter Procedures Procedure Name Priority Date/Time Associated Diagnosis Comments XR CHEST PORTABLE STAT 09/22/2019 3:3 2 PM CDT COMPREHENSIVE METABOLIC PANEL STAT 09/22/2019 3:18 PM CDT CBC W/DIFF AUTOMATED STAT 09/22/2019 3:18 PM CDT TROPONIN, QUANT STAT 09/22/2019 3:18 PM CDT ECG 12-LEAD STAT 09/22/2019 2:59 PM CDT CORONAVIRUS (COVID 19) Routine 0 2:50 PM CDT documented in this encounter Results * XR CHEST PORTABLE (09/22/2019 3:32 PM CDT) Anatomical Region Laterality Modality Chest Radiographic Shelli ging 09/22/2019 3:33 PM CDT Impressions 09/22/2019 3:33 PM CDT IMPRESSION: Negative chest Narrative 09/22/2019 3:33 PM CDT SINGLE VIEW OF THE CHEST Clinical history: Shortness of breath Comparison: February 15, 2019 A single view of the chest demonstrates The cardiac silhouette, mediastinal contours, and pulmonary vessels appear normal. ??The Lungs are clear. No consolidations or effusions are seen. Procedure Note Villa Birmingham MD - 09/22/2019 SINGLE VIEW OF THE CHEST Clinical history: Shortness of breath Comparison: February 15, 2019 A single view of the chest demonstrates The cardiac silhouette,mediastinal contours, and pulmonary vessels appear normal. The Lungs are clear. No consolidations or effusions are seen. IMPRESSION: Negative chest [facility] Final Resu lt * TROPONIN, QUANT (09/22/2019 3:18 PM CDT) TROPONIN I <0.015 <0.045 ng/mL. 09/22/2019 4:08 PM CDT [facility] Comment: HIGH DOSES OF BIOTIN MAY INTERFERE WITH THIS TEST RESULT. CORRELATION TO CLINICAL HISTORY AND PRESENTATION RECOMMENDED. 09/22/2019 3:18 PM CDT [facility] Final Resu lt [facility] [address] [place] [address], [place] [phone] * (ABNORMAL) COMPREHENSIVE METABOLIC PANEL (09/22/2019 3:18 PM CDT) GLUCOSE 145(H) 70 - 99 MG/DL 09/22/2019 4:08 PM CDT [facility] BUN 16 7 - 18 MG/DL 09/22/2019 4:08 PM CDT [facility] CREATININE S/P/B 1.21(H) 0.55 - 1.02 MG/DL 09/22/2019 4:08 PM CDT [facility] SODIUM S/P/B 136 136 - 145 MMOL/L 09/22/2019 4:08 PM CDT [facility] POTASSIUM S/P/B 3.9 3.5 - 5.1 MMOL/L 09/22/2019 4:08 PM CDT [facility] CHLORIDE S/P/B 103 100 - 108 MMOL/L 09/22/2019 4:08 PM CDT [facility] CO2 25.4 21 - 32 MMOL/L 09/22/2019 4:08 PM CDT [facility] CALCIUM S/P/B 9.0 8.5 - 10.1 MG/DL 09/22/2019 4:08 PM CDT [facility] BILIRUBIN TOTAL S/P/B 0.6 0.2 - 1.2 MG/DL 09/22/2019 4:08 PM T [facility] Comment: THIS ASSAY IS NOT RECOMMENDED FOR PATIENTS UNDERGOING TREATMENT WITH ELTROMBOPAG DUE TO THE POTENTIAL FOR FALSELY ELEVATED RESULTS. TOTAL PROTEIN S/P/B 9.3(H) 6.4 - 8.2 G/DL 09/22/2019 4:08 PM CDT [facility] ALBUMIN S/P/B 3.6 3.4 - 5.0 G/DL 09/22/2019 4:08 PM CDT [facility] AST 21 15 - 37 U/L 09/22/2019 4:08 PM T [facility] ALT 34 14 - 55 U/L 09/22/2019 4:08 PM T [facility] ALKALINE PHOSPHATASE S/P/B 115 50 - 136 U/L 09/22/2019 4:08 PM T [facility] ANION GAP 7.6 5 - 15 MMOL/L 09/22/2019 4:08 PM T [facility] BUN CREATININE RATIO 13.2 6 - 26 09/22/2019 4:08 PM T [facility] A/G RATIO 0.6(L) 1.0 - 2.0 RATIO 09/22/2019 4:08 PM T [facility] EGFR NON-AFR. AMER. 53(L) >90 ML/MIN/1.7 3 M2 09/22/2019 4:08 PM CDT [facility] EGFR AFR. AMER. 61(L) >90 ML/MIN/1.7 3 M2 09/22/2019 4:08 PM CDT [facility] Comment: NOTE: eGFR is not calculated for patients <18 years of age. This is an estimated GFR (CKD EPI) and should not be used for calculating drug doses. 09/22/2019 3:18 PM CDT us [facility] Final Resu lt [facility] [address] [place] [address], * (ABNORMAL) CBC W/DIFF AUTOMATED (09/22/2019 3:18 PM CDT) WBC 11.5(H) 4.5 - 11.0 x10'3/uL 09/22/2019 3:38 PM CDT [facility] RBC 3.94(L) 4.20 - 5.40 x10'6/uL 09/22/2019 3:38 PM CDT [facility] HGB 12.2 12.0 - 16.0 G/DL 09/22/2019 3:38 PM CDT [facility] HCT 35.7(L) 38.0 - 48.0 % 09/22/2019 3:38 PM CDT [facility] MCV 90.6 80.0 - 94.0 FL 09/22/2019 3:38 PM CDT [facility] MCH 31.0 27.0 - 31.0 PG 09/22/2019 3:38 PM CDT [facility] MCHC 34.2 32.0 - 36.0 G/DL 09/22/2019 3:38 PM CDT [facility] RDW 12.6 11.5 - 14.5 % 09/22/2019 3:38 PM CDT [facility] PLT 267 130 - 400 x10'3/uL 09/22/2019 3:38 PM CDT [facility] MPV 11.1 9.3 - 12.2 FL 09/22/2019 3:38 PM CDT [facility] DIFFERENTIAL TYPE AUTOMATED DIFFERENTIAL 09/22/2019 3:38 PM CDT [facility] NEUTROPHILS % 69.2 % 09/22/2019 3:38 PM CDT [facility] LYMPHOCYTES % 23.4 % 09/22/2019 3:38 PM CDT [facility] MONOCYTES % 5.3 % 09/22/2019 3:38 PM CDT [facility] EOSINOPHILS 1.5 % 09/22/2019 3:38 PM CDT [facility] BASOPHILS 0.3 % 09/22/2019 3:38 PM CDT [facility] IMMATURE GRANS % 0.3 % 09/22/19 20 3:38 PM CDT [facility] ABS. NEUTROPHILS TOTAL 7.96(H) 1.80 - 7.70 x10'3/uL 09/22/2019 3:38 PM CDT [facility] ABS. LYMPHOCYTES 2.70 1.00 - 4.80 x10'3/uL 09/22/2019 3:38 PM CDT [facility] ABS. MONOCYTES 0.61 0.24 - 0.86 x10'3/uL 09/22/2019 3:38 PM CDT [facility] ABS. EOSINOPHILS 0.17 0.04 - 0.36 x10'3/uL 09/22/2019 3:38 PM CDT [facility] ABS. BASOPHILS 0.04 0.01 - 0.08 x10'3/uL 09/22/2019 3:38 PM CDT [facility] ABS. IMMATURE GRANULOCYTES 0.04 0.00 - 0.49 x10'3/uL 09/22/2019 3:38 PM CDT [facility] 09/22/2019 3:18 PM CDT us [facility] Final Resu lt [facility] [address] [place] [address], * ECG 12 lead (09/22/2019 2:59 PM CDT) 09/22/2019 2:[address] [facility] ([facility]) RAD - 09/27/2019 3:53 AM CDT ?[place]`jensen Christensen ? [address] [facility] ? Test Date: ?2019-09-22 Pat Name: ? LENA YOUNGBLOOD ?Department: ? Room: ? JOLEEN Gender: ? Female ? Laundry Laborer: ?? NG : ?1970 ? Requested By: SISI MANCILLA Order Number: [id number] ? Reading : ?? Alexei Rodríguez ? Measurements Intervals ?Stanton ? Rate: ? 106 ?P: ?50 NH: ? 150 ?QRS: ?27 QRSD: ? 77 ? T: ?-33 QT: ? 315 ? QTc: ?419 ? Interpretive Statements SINUS TACHYCARDIA NONSPECIFIC T-WAVE ABNORMALITY ABNORMAL RHYTHM ECG CRITICAL ALERT ISSUED ON 09-22-2019 15:06:22 Compared to ECG 09/22/2019 13:26:42 Sinus rhythm no longer present T-wave abnormality still present Procedure Note Alexei Rodríguez MD - 09/27/[address] Test Date: 2019-09-22 Pat Name: LENA YOUNGBLOOD Department: Room: JOLEEN Gender: Female Laundry Laborer: ALEX : 1970 Requested By: SISI MANCILLA Order Number: [id number] Reading MD: Alexei Rodríguez Measurements Intervals Stanton Rate: 106 P: 50 NH: 150 QRS: 27 QRSD: 77 T: -33 QT: 315 QTc: 419 Interpretive Statements SINUS TACHYCARDIA NONSPECIFIC T-WAVE ABNORMALITY ABNORMAL RHYTHM ECG CRITICAL ALERT ISSUED ON 09-22-2019 15:06:22 Compared to ECG 09/22/2019 13:26:42 Sinus rhythm no longer present T-wave abnormality still present us Sisi Mancilla PA ECG ORDERABLES Final Resu lt [facility] * CORONAVIRUS (COVID 19) [facility] (09/22/2019 2:50 PM CDT) CORONAVIRUS SARS COV 2 PCR (RESP) NOT DETECTED NOT DETECTED 09/24/2019 11:12 PM CDT [facility] Comment: A Not Detected (negative) test result [...] providers and patients using the following websites: https://www.[employer].eIQnetworks/home/Covid-19/HCP/NAAT/fact-sheet2 https://www.[employer].eIQnetworks/home/Covid-19/Patients/NAAT/ fact-sheet2 This test has been authorized by the FDA under an Emergency Use Authorization (EUA) for use by authorized laboratories. Due to the current public health emergency, [facility] is receiving a high volume of samples [...] about COVID-19 can be found at the [facility] website: www.[employer].eIQnetworks/Covid19. Test performed at [facility] [place] [address] [place], [place] ??[address] Director: OJE FORBES DO,MPH 09/22/2019 2:50 PM CDT us [facility] - GENERAL ORD ERABLES Final Result [facility] [address] [address], documented in this encounter Visit Diagnoses Diagnosis Suspected COVID-19 virus infection- Primary documented in this encounter Administered Medications Inactive Administered Medications - up to 3 most recent administrations Medication Order MAR Action Action Date Dose Rate Site acetaminophen (TYLENOL) tablet 650 mg 650 mg, Oral, Once, 1 dose, On Sun09/22/19 at 1515, Maximum dose of acetaminophen is 4000 mg from all sources in 24 hours. Given 09/22/2019 3:18 PM CDT 650 mg albuterol sulfate HFA 108 (90 Base) MCG/ACT inhaler 2 puff 2 puff, Inhalation, Once, 1 dose, On Sun09/22/19 at 1445 Given 09/22/2019 2:51 PM CDT 2 puffs documented in this encounter Active and Recently Administered Medications Times are shown in CDT. Scheduled Medication Order 09/20/2019 09/21/2019 09/22/2019 acetaminophen (TYLENOL) tablet 650 mg (COMPLETED) 650 mg, Oral, Once, 1 dose, On Sun09/22/19 at 1515, Maximum dose of acetaminophen is 4000 mg from all sources in 24 hours. 1518 (Given - Provid er: Bre Rogers RN) albuterol sulfate HFA 108 (90 Base) MCG/ACT inhaler 2 puff (COMPLETED) 2 puff, Inhalation, Once, 1 dose, On Sun09/22/19 at 1445 1451 (Given - Provid er: Mauricio Joe CRT) documented in this encounter Additional Health Concerns Infection Onset Date Last Indicated Resolved Time COVID-19 Rule Out 09/22/2019 09/22/2019 09/24/2019 11:13 PM CDT documented as of this encounter Care Teams Marine Animal Trainer Relationship Specialty Start Date End Date Jarred Fernández MD PCP - General FAMILY PRACTICE 07/21/15 09/30/20 documented as of this encounter
--- OUTSIDE RECORDS SUMMARY | 2024-03-02 22:31 | XMS_ITS | Encounter Summary ---
Author Organization [facility] Address [address] [place] [address]. [place] [address] [place] [address] Care Team Providers Care Char Filter Tank Tender Head Name Role Phone Jarred Rod MD Primary Care Provider Unav ailable Reason for Visit * Reason Onset Date Comments Consult 10/17/2019 Encounter Details Date Type Department Care Team (Late st Contact Info) Description 10/17/2019 Telephone [facility] [address] Jacy Qureshi, RMA Consult Social History Tobacco [...] Author Status Yes 08/12/2019 3:00 AM CDT TottyShelby R N Active * Because of a physical, mental, or emotional condition, do you have difficulty doing errands alone such as visiting a doctor's office or shopping? Answer Date of Assessment Author Status Yes 08/12/2019 3:00 AM CDT TottyShelby R N Active documented as of this encounter Mental Status * Because of a physical, mental, or emotional condition, do you have serious difficulty concentrating, remembering, or making decisions? Answer Entry Date Author Status No 08/12/2019 3:00 AM CDT TottyShelby R N Active documented in this encounter Progress Notes * NATALIE Ngo - 10/17/2019 2:34 PM CDT Left message on vm for patient to schedule cardiology consult per CYNTHIA Tejada documented in this encounter Plan of Treatment Upcoming Encounters Date Type Department Care Team (Late st Contact Info) Description 03/14/2024 11:45 AM BILLING ASSOCIATE Office Visit [facility] [phone] Marvin Mckeon MD Three [facility] [address] [place] [address] 03/20/2024 11:30 AM BILLING ASSOCIATE Office Visit [facility] Family [facility] - [place] [address] [place] [phone] Abiodun Segura II, MD [address] [place] [id number] documented as of this encounter Visit Diagnoses Not on filedocumented in this encounter Care Teams Char Filter Tank Tender Head Relationship Specialty Start Date End Date Jarred Rod MD PCP - General FAMILY PRACTICE 07/21/15 09/30/20 documented as of this encounter
--- OUTSIDE RECORDS SUMMARY | 2024-03-02 22:31 | XMS_ITS | Encounter Summary ---
Author Organization [facility] Address [address] [place] [address]. [place] [address] [place] [address] Care Team Providers Care Mill And Coal Transport Operator Name Role Phone Jarred Rod MD Primary Care Provider Unav ailable Reason for Visit * Auth/Cert Specialty Diagnoses / Procedures Referred By Lyla t Referred To Contact Diagnoses Intractable abdominal pain Abdominal pain Referral ID Status Reason Start Date Expiration Date Visits Re quested Visits Authorized [id number] 1 1 Encounter Details Date Type Department Care Team (Late st Contact Info) Description 08/13/2019 12:47 PM CDT Anesthesia Event [facility] [place] [address] Shonda Rivas, DO [address] [facility] [address] [place] [address] Tracee Buckner CRNA Anesthesia Record Procedure Summary Procedure Name Responsible Anesthesiologist Anesthesia Start Time Anesthesia Stop Time DIAGNOSTIC LAPAROSCOPY, LYSIS OF ADHESIONS, RIGHT SALPINGECTOMY (Abdomen) Shonda Rivas DO 08/13/19 1247 08/13/19 1602 Events Date Time Event Comment 08/13/2019 1205 1205 AN Anesthesia Prepped 1247 An Start Patient ID and consent checked and patient reassessed. 1251 An Start Data 1252 Preoxygenation 1256 An Induction 1258 An Intubation 1300 an jacob now 1303 Anesthesia Ready 1545 An Emergence 1553 An Extubation 1556 Face Mask Applied 1557 an stop data 1602 Post Anesthetic Care Handoff I completed my handoff to the receiving nurse during which we: 1. Identified the patient 2. Identified the responsible provider 3. Reviewed the pertinent medical history 4. Discussed the surgical course 5. Reviewed intra-op anesthesia management and issues during anesthesia 6. Set expectations for post-procedure period 7. Allowed opportunity for questions and acknowledgement of understanding. 1602 An Stop Meds Name Total midazolam 2 mg/2 mL injection 2 mg fentaNYL (SUBLIMAZE) 100 mcg/2 mL inject ion 100 mcg lidocaine (PF) (XYLOCAINE) 2% injection 100 mg propofol (DIPRIVAN) 200 mg/20 mL injecti on 150 mg succinylcholine (ANECTINE) 20 mg/mL inje ction 130 mg rocuronium (ZEMURON) 50 mg/5 mL injectio n 30 mg ondansetron (ZOFRAN) injection 4 mg ketorolac (TORADOL) 30 mg/mL injection 3 0 mg sugammadex (BRIDION) 200 mg/2 mL injecti on 200 mg clindamycin (CLEOCIN) 600 mg in sodium c hloride 0.9 % 50 mL IVPB 600 mg gentamicin (GARAMYCIN) 120 mg in sodium chloride 0.9 % 100 mL IVPB 120 mg phenylephrine (SAL-SYNEPHRINE) 10 mg/mL injection 200 mcg INDIGO CARMINE injection 40 mg lactated ringers infusion 1,400 mL * Agents Name O2 N2O Air Inspired Sevoflurane Sevoflurane * Blood No blood administrations on file. Lines, Drains, and Airways Type Details Placement Removal Peripheral IV Placement Date: 07/21 04/10; Placement Time: 2125; Placed Outside of This Facility?: No; Size: 20 G; Orientation: Left; Location: Antecubital; Site Prep: Chlorhexidine; Local Anesthetic: None; Inserted By: DEANDRE Arenas; Insertion attempts: 1; Ultrasound-guided Placement?: No; Patient Tolerance: Tolerated well; Removal Date: 08/14/19; Removal Time: 172; Removal Reason: Patient Discharged 08/11/192125 by Joel Morton RN 08/14/191725 by Tomeka Collins RN ETT Placement Date: 07/21 06/08; Placement Time: 1258; Mask Ventilate: Prior to intubation, Easy; Size (mm) : 7; Endotracheal: Oral, Stylet used; Blade Type: Smith 2; Placement Method: Direct Laryngoscopy (blade type in comment), Cricoid pressure; View Grade: 2; Viewable Anatomy: Epiglottis, Arytenoid, Vocal cords; Insertion Attempts: 1; Placement Verified By: Capnography, Auscultation, Chest Rise; Placed By: DANNY; Extubation Assessment: Suctioned, Tolerated well, Patient spontaneously breathing, Deep breathes w/equal chest movements, Able to swallow, Atraumatic; Removal Date: 08/13/19; Removal Time: 1553; Removal Person: AWS CONSULTANT; Removal Reason: End of Case 08/13/19 1258 by Peng Chandler CRNA 08/13/19 1553 by Peng Chandler CRNA NG/OG Tube Placement Date: 07/21 06/08; Placement Time: 1303; Inserted By: Jann Chandler; Tube Type: Orogastric; Tube Size: 18 Fr.; Removal Date: 08/13/19; Removal Time: 1541 08/13/19 1303 by Peng Chandler CRNA 08/13/19 1541 by Peng Chandler CRNA Thakkar Catheter 08/13/19; 1320; No; Urologic Surgical intervention - Bladder, Prostate, ORE CHARGER procedures; 1; Hand hygiene performed, Site cleansed with sterile antiseptic, Sterile gloves, drape and lubricant used, Catheter inserted using aseptic technique; Clipped; Latex, Straight-tip; 14 Fr.; Per Order 08/13/19 1320 by Arelis Michael RN 08/14/19 1300 by Tomeka Collins RN Surgical/Incision 08/13/19; 1541; Surg ical Wound; Abdomen; ADHESIVE DERMABOND (x2); 08/14/19; 195608/13/19 1541 by Brigid Lee RN 08/14/191956 by Automatic Discharge Provider documented in this [...] AM CDT Shelby Martinez, R N Active * Do you have [...] OR Notes * Anesthesia Postprocedure Evaluation - Mone Wilson CRNA - 08/14/2019 10:17 AM CDT Anesthesia Post-op Note Lena Mcneal Procedure(s): DIAGNOSTIC LAPAROSCOPY, LYSIS OF ADHESIONS, RIGHT SALPINGECTOMY (N/A Abdomen) TRACHELECTOMY (N/A Vagina) CYSTOSCOPY (Bladder) Anesthesia type: general Vitals: 08/14/19 0820 BP: 114/65 Vitals: 08/14/19 0820 Pulse: 77 Vitals: 08/14/19 0820 Resp: 15 Vitals: 08/14/19 0820 Temp: 36.9 ??C Vitals: 08/14/19 0820 SpO2: 99% Patient Location: Inpatient Unit Level of Consciousness: awake, alert and oriented Pain Management: adequate analgesia Airway Patency: patent Respiratory Status: acceptable Cardiovascular Status: acceptable Post-Op Nausea: none Postoperative Hydration: euvolemic Complications: no anesthesia complication * Anesthesia Postprocedure Evaluation - Shonda Rivas DO - 08/13/2019 4:42 PM CDT Anesthesia Post-op Note Lena Mcneal Procedure(s): DIAGNOSTIC LAPAROSCOPY, LYSIS OF ADHESIONS, RIGHT SALPINGECTOMY (N/A Abdomen) TRACHELECTOMY (N/A Vagina) CYSTOSCOPY (Bladder) Anesthesia type: general Vitals: 08/13/19 1630 BP: (!) 163/91 Vitals: 08/13/19 1630 Pulse: 74 Vitals: 08/13/19 1630 Resp: 16 Vitals: 08/13/19 1600 Temp: 36.7 ??C Vitals: 08/13/19 1630 SpO2: 96% Patient Location: PACU Level of Consciousness: awake, oriented and alert Pain Management: adequate analgesia Airway Patency: patent Respiratory Status: acceptable Cardiovascular Status: acceptable and hemodynamically stable Post-Op Nausea: none Postoperative Hydration: euvolemic Complications: no anesthesia complication * Anesthesia Preprocedure Evaluation - Shonda Rivas DO - 08/13/2019 11:49 AM CDT Anesthesia ROS/MED History Reviewed: Patient summary , ECG, Family history anesthesia, Anesthesia history , Medications , Labs , Images/Studies , Unchecked boxes are not applicable Pre-Anesthetic State: alert, awake and responds appropriately Pulmonary neg pulmonary ROS Cardiovascular Exercise tolerance:poor (+) hypertension, hyperlipidemia(-) angina, arrhythmia Neuro/Psych (+) neuromuscular disease, (neuropathy) GI/Hepatic/Renal neg GI/hepatic/renal ROS Endo/Other (+) diabetes mellitus, (poorly controlled), (type 2) GENERAL COMMENTS -- Amoxicillin -- Rash -- Penicillins -- Rash Past Medical History: No date: Arthritis No date: Charcot foot due to diabetes mellitus ([facility]) Comment: LEFT FOOT No date: Diabetes mellitus ([facility]) No date: Diabetic neuropathy ([facility]) No date: Hypertension No date: Renal disorder No date: UTI (urinary tract infection) Past Surgical History: No date: AMPUTATION TOE; Left Comment: 2ND AND 3RD TOE No date: EYE SURGERY No date: FRACTURE SURGERY No date: HYSTERECTOMY No date: RETINAL DETACHMENT SURGERY; Right Physical Evaluation Airway Mallampati: II TM Distance: >3 FB Neck ROM: normal Dental No notable dental history Pulmonary Pulmonary exam normal Breath sounds clear to auscultation Cardiovascular Rhythm: regular Rate: normal Cardiovascular exam normal Anesthesia Plan ASA 3 Intravenous Induction Anesthesia type: general Discussed potential risks of General Anesthesia including but not limited to corneal abrasion, visual impairment or visual loss, mouth injury, dental damage, sore throat, hoarseness, esophageal injury, awareness under anesthesia, nerve injury due to positioning, aspiration, pneumonia, stroke, cardiac event, adverse drug reactions and . Patient understands risks, benefits and alternatives andwishes to proceed. All questions answered. Informed Consent Anesthetic plan and risks discussed with patient of whom consent was obtained. . documented in this encounter Plan of Treatment Upcoming Encounters Date Type Department Care Team (Late st Contact Info) Description 03/14/2024 11:45 AM CARRY OUT CLERK Office Visit [facility] [phone] Marvin Mckeon MD [facility] [address] [place] [address] 03/20/2024 11:30 AM CARRY OUT CLERK Office Visit [facility] Family Medicine - [address] [phone] Abiodun Segura II, MD [address] [place] [phone] documented as of this encounter Visit Diagnoses Not on filedocumented in this encounter Administered Medications Inactive Administered Medications - up to 3 most recent administrations Medication Order MAR Action Action Date Dose Rate Site clindamycin (CLEOCIN) 600 mg in sodium chloride 0.9 % 50 mL IVPB 600 mg, Intravenous, at 100 mL/hr, inbound call center agent to O.R., 1 dose, First dose on Sun08/13/19 at 1145 New Bag 08/13/2019 1:00 PM CDT 600 mg fentaNYL (SUBLIMAZE) injection Intravenous, PRN, Starting on Sun08/13/19 at 1255, Until Sun08/13/19 at 1602, Anesthesia Intra-Op Given 08/13/2019 3:28 PM CDT 50 mcg Given 08/13/2019 3:20 PM CDT 25 mcg Given 08/13/2019 12:55 PM CDT 25 mcg gentamicin (GARAMYCIN) 120 mg in sodium chloride 0.9 % 100 mL IVPB 120 mg, Intravenous, at 100 mL/hr, inbound call center agent to O.R., 1 dose, First dose on Sun08/13/19 at 1145 New Bag 08/13/2019 1:00 PM CDT 120 mg indigotindisulfonate (INDIGO CARMINE) injection PRN, Starting on Sun08/13/19 at 1501, Until Sun08/13/19 at 1602, Anesthesia Intra-Op Given 08/13/2019 3:01 PM CDT 40 mg ketorolac (TORADOL) injection Intravenous, PRN, Starting on Sun08/13/19 at 1539, Until Sun08/13/19 at 1602, Anesthesia Intra-Op Given 08/13/2019 3:39 PM CDT 30 mg lactated ringers infusion at 10 mL/hr, Intravenous, Continuous, Starting on Sun08/13/19 at 1215, Until Viky 08/14/19 at 1957, Infuse at TKO rate, Pre-Op New Bag 08/13/2019 3:17 PM CDT New Bag 08/13/2019 12:34 PM CDT lidocaine (PF) (XYLOCAINE) 2 % injection Intravenous, PRN, Starting on Sun08/13/19 at 1256, Until Sun08/13/19 at 1602, Anesthesia Intra-Op Given 08/13/2019 12:56 PM CDT 100 mg midazolam (VERSED) injection Intravenous, PRN, Starting on Sun08/13/19 at 1249, Until Sun08/13/19 at 1602, Anesthesia Intra-Op Given 08/13/2019 12:49 PM CDT 2 mg ondansetron (ZOFRAN) injection Intravenous, PRN, Starting on Sun08/13/19 at 1539, Until Sun08/13/19 at 1602, Anesthesia Intra-Op Given 08/13/2019 3:39 PM CDT 4 mg phenylephrine (SAL-SYNEPHRINE) injection PRN, Starting on Sun08/13/19 at 1326, Until Sun08/13/19 at 1602, Anesthesia Intra-Op Given 08/13/2019 1:26 PM CDT 200 mcg propofol (DIPRIVAN) IV bolus Intravenous, PRN, Starting on Sun08/13/19 at 1256, Until Sun08/13/19 at 1602, Anesthesia Intra-Op Given 08/13/2019 12:56 PM CDT 150 mg rocuronium (ZEMURON) injection Intravenous, PRN, Starting on Sun08/13/19 at 1306, Until Sun08/13/19 at 1602, Anesthesia Intra-Op Given 08/13/2019 1:06 PM CDT 30 mg succinylcholine (ANECTINE) injection Intravenous, PRN, Starting on Sun08/13/19 at 1257, Until Sun08/13/19 at 1602, Anesthesia Intra-Op Given 08/13/2019 12:57 PM CDT 130 mg sugammadex (BRIDION) injection Intravenous, PRN, Starting on Sun08/13/19 at 1546, Until Sun08/13/19 at 1602, Anesthesia Intra-Op Given 08/13/2019 3:46 PM CDT 200 mg documented in this encounter Care Teams Mill And Coal Transport Operator Relationship Specialty Start Date End Date Jarred Rod MD PCP - General FAMILY PRACTICE 07/21/15 09/30/20 documented as of this encounter
--- OUTSIDE RECORDS SUMMARY | 2024-03-02 22:31 | XMS_ITS | Encounter Summary ---
Author Organization [facility] Address [address] [place] [address]. [place], [place] [phone] [place] [address] Care Team Providers Care Forming Tube Selector Name Role Phone Jarred Rod MD Primary Care Provider Unav ailable Encounter Details Date Type Department Care Team (Latest Contact Info) Description 09/22/2019 Travel Social History Tobacco Use Types Packs/Day [...] st Contact Info) Description 03/14/2024 11:45 AM SCIENTIFIC DIRECTOR Office Visit [facility]-[address] [phone] Marvin Mckeon MD [facility] [address] [place] [address] 03/20/2024 11:30 AM SCIENTIFIC DIRECTOR Office Visit [facility] Family Medicine - [address] [phone] Abiodun Segura II, MD [address] [place] [phone] documented as of this encounter Visit Diagnoses Not on filedocumented in this encounter Additional Health Concerns Infection Onset Date Last Indicated Resolved Time COVID-19 Rule Out 09/22/2019 09/22/2019 09/24/2019 11:13 PM CDT documented as of this encounter Care Teams Forming Tube Selector Relationship Specialty Start Date End Date Jarred Rod MD PCP - General FAMILY PRACTICE 07/21/15 09/30/20 documented as of this encounter
--- OUTSIDE RECORDS SUMMARY | 2024-03-02 22:31 | XMS_ITS | Encounter Summary ---
Author Organization [facility] Address [address] [place] [address]. [place], [place] [phone] [place] [address] Care Team Providers Care Welding Systems And Equipment Repairer Name Role Phone Jarred Rod MD Primary Care Provider Unav ailable Shira Shi PA-C Primary Care Provider [phone] Jarred Rod MD Primary Care Provider Unav ailable Colton SILVEIRA MD, Abiodun L Primary Care Provider Jarred Rod MD Primary Care Provider Unav ailable Encounter Details Date Type Department Care Team (Latest Contact Info) Description 05/07/2019 Scan HEALTH INFO SRVCS Scanned, Documents Social [...] COVID-19? No / Unsure 01/24/2021 11:10 AM TWINE WINDER documented as of this encounter Functional Status [...] st Contact Info) Description 03/14/2024 11:45 AM TWINE WINDER Office Visit [facility] [phone] Marvin Mckeon MD [facility] [address] [place] [phone] 03/20/2024 11:30 AM TWINE WINDER Office Visit [facility] Family Medicine - [address] [phone] Abiodun Segura II, MD [address] [place] [phone] documented as of this encounter Visit Diagnoses Not on filedocumented in this encounter Additional Health Concerns Infection Onset Date Last Indicated Resolved Time COVID-19 Rule Out 09/22/2019 09/22/2019 09/24/2019 11:13 PM CDT COVID-19 Rule Out 11/02/2019 11/02/2019 11/03/2019 3:22 PM CDT COVID-19 Rule Out 12/13/2019 12/13/2019 12/14/2019 3:06 PM CDT COVID-19 Confirmed 12/13/2019 12/13/2019 0 12:34 AM TWINE WINDER documented as of this encounter Care Teams Welding Systems And Equipment Repairer Relationship Specialty Start Date End Date Jarred Rdo MD PCP - General FAMILY PRACTICE 07/21/15 09/30/20 Shira Shi, JESUSC [address] [place] [phone] PCP - General PHYSICIAN TURBINE ENGINE ASSEMBLER 10/01/20 11/17/20 Jarred Rod MD [address] [place] [phone] PCP - General FAMILY PRACTICE 11/18/20 12/05/20 Abiodun Segura II, MD [address] [place] [phone] PCP - General FAMILY PRACTICE 12/06/20 01/16/21 Jarred Rod MD [address] [place] [phone] PCP - General FAMILY PRACTICE 01/17/21 03/08/21 documented as of this encounter
--- OUTSIDE RECORDS SUMMARY | 2024-03-02 22:31 | XMS_ITS | Encounter Summary ---
Author Organization [facility] Address [address] [place] [address]. [place] [address] [place] [address] Care Team Providers Care Drafter Refrigeration Name Role Phone Jarred Rod MD Primary Care Provider Unav ailable Reason for Visit * Reason Comments Suspected Coronavirus (Covid-19) Encounter Details Date Type Department Care Team (Latest Contact Info) Description 09/22/2019 1:10 PM CDT - 09/22/2019 1:56 [place] [address] Keisha John, [facility] Suspected Coronavirus (Covid-19) Discharge Disposition: Transfer to Acute Care Hospital Social History Tobacco Use Types Packs/Day Years [...] have Coronavirus / COVID-19? No / Unsure 09/22/2019 1:09 PM CDT documented as of this encounter Last Filed Vital Signs Vital Sign Reading Time Taken Comments Blood Pressure 144/89 09/22/2019 1:45 PM CDT Pulse 100 09/22/2019 1:45 PM CDT Temperature 37.1 ??C (98.7 ??F) 09/22/2019 1:16 PM CD T Respiratory Rate 20 09/22/2019 1:45 PM CDT Oxygen Saturation 99% 09/22/2019 1:16 PM CDT Inhaled Oxygen Concentration - - Weight - - Height 167.6 cm (5' 6 ) 09/22/2019 1:16 PM CDT Body Mass Index - - documented in [...] as of this encounter ED Notes * Vira Andres RN - 09/22/2019 1:52 PM CDT PT TO WITH C/O COUGH, CONGESTION, CHILLS, VOMITING, CHEST PAIN AND SOB. SX STARTED LAST NIGHT. DROVE SELF HERE. PT WAS BROUGHT BACK TO ROOM #4, EKG AND POC GLUCOSE DONE AT BEDSIDE. * Vira Andres RN - 09/22/2019 1:41 PM CDT ATTEMPT TO START IV LINE, PT PULLED AWAY WHILE GETTING A BLOOD RETURN, SHE STATED SHE WANTS IT BY ULTRASOUND, SHE STATED SHE WANTED TO WAIT UNTIL SHE GOT TO THE ER, PT WILL BE A TRANSFER BY EMS * Keisha John BENCH GRINDER-BC - 09/22/2019 1:18 PM CDTAssociated Order(s): EKG Reading History Chief Complaint Patient presents with ??? Suspected Coronavirus (Covid-19) Lena Youngblood is a 49-year-old female who presented to the with c/o body aches, fatigue, chest pain, cough, congestion, and nausea/vomiting. PT states her symptoms began yesterday. She did have a positive COVID 19 exposure to her play mom . Pt states that she feels like the center of her chest is having muscle spasms and shoots into my left shoulder . Pt denies fever. Pt reports associated SOB. PT states she did try diabetic cough syrup last night without improvement. Past Medical History: Diagnosis Date ??? Arthritis ??? Charcot foot due to diabetes mellitus (CMS/HCC) LEFT FOOT ??? Diabetes mellitus (CMS/HCC) ??? Diabetic neuropathy (CMS/HCC) ??? Hypertension ??? Renal disorder ??? UTI (urinary tract infection) Prior to Admission medications Medication Sig Start [...] 7 days. INJECT ON Sunday10/07/18 Doc Abstract Past Surgical History: Procedure Laterality Date ??? 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 EYE SURGERY ??? FRACTURE SURGERY ??? HYSTERECTOMY ??? RETINAL DETACHMENT SURGERY Right Family History Problem Relation Name Age of Onset ??? Diabetes Mother ??? Heart Attack Father Social History Tobacco Use ??? Smoking status: Never Smoker ??? Smokeless tobacco: Never Used Substance Use Topics ??? Alcohol use: No ??? Drug use: No No LMP recorded. Patient has had a hysterectomy. Review of Systems Constitutional: Positive for fatigue. HENT: Positive for congestion. Respiratory: Positive for cough and shortness of breath. Cardiovascular: Positive for chest pain. Gastrointestinal: Positive for nausea and vomiting. Musculoskeletal: Positive for myalgias (generalized body aches). Neurological: Positive for headaches. All other systems reviewed and are negative. Physical Exam Filed Vitals: 09/22/19 1316 09/22/19 1345 BP: (!) 198/84 (!) 144/89 Pulse: 107 100 Resp: 18 20 Temp: 98.7 ??F (37.1 ??C) TempSrc: Oral SpO2: 99% Height: 5' 6 (1.676 m) Physical Exam Constitutional: She is oriented to person, place, and time. She appears well- developed and well-nourished. HENT: Head: Normocephalic and atraumatic. Right Ear: External ear normal. Left Ear: External ear normal. Nose: Nose normal. Mouth/Throat: Oropharynx is clear and moist. Eyes: Pupils are equal, round, and reactive to light. Conjunctivae and EOM are normal. Neck: Normal range of motion. Neck supple. Cardiovascular: Normal rate, regular rhythm, normal heart sounds and intact distal pulses. No pedal edema Pulmonary/Chest: Effort normal and breath sounds normal. No respiratory distress. She has no wheezes. She has no rales. Abdominal: Soft. Bowel sounds are normal. There is no tenderness. Pt with persistent vomiting Musculoskeletal: Normal range of motion. Neurological: She is alert and oriented to person, place, and time. Skin: Skin is warm. She is diaphoretic. Psychiatric: She has a normal mood and affect. Her behavior is normal. Thought content normal. Vitals reviewed. Labs Reviewed POCT GLUCOSE - CORREA DOCKED DEVICE - Abnormal; Notable for the following components: Result Value GLUCOSE WHOLE BLOOD 159 (*) All other components within normal limits ED Course EKG Reading Date/Time: 09/22/2019 1:21 PM Performed by: JESSICA Lambert Authorized by: JESSICA Lambert Interpreted by ED physician: EKG interpreted by this provider. Comparison: not compared with previous ECG Previous ECG: no previous ECG available Rhythm: sinus rhythm Rate: tachycardic BPM: 99 QRS axis: normal ST Elevation: V1 and V2 Clinical impression: non-specific ECG ED Course as of Sep 21 1347 Mon Sep 22, 2019 1322 1317--JESUS DuganC notified that pt would be transferred to the ER via EMS due to CP, continual vomiting, elevated HR, elevated BP. PT is aware and agreeable. [MP] 1339 Nursing staff placed 2 IVs however the patient removed both of them. She requested to wait until she can have US guided placement IV while at the ER. Zofran IV changed to ODT. [MP] 1347 EKG also reviewed by Dr Mcpherson, ER MD, no acute ischemia noted. [MP] ED Course User Index [MP] JESSICA Lambert Medications ondansetron (ZOFRAN-ODT) disintegrating tablet 4 mg (has no administration in time range) Current Discharge Medication List MDM Number of Diagnoses or Management Options Chest pain: Exposure to COVID-19 virus: Nausea and vomiting: Amount and/or Complexity of Data Reviewed Clinical lab tests: ordered and reviewed Tests in the medicine section of CPT??: ordered and reviewed Discuss the patient with other providers: yes (Discussed patient with CYNTHIA Rutherford regarding transfer to the ER. He is agreeable.) Independent visualization of images, tracings, or specimens: yes (EKG as noted.) Patient Progress Patient progress: stable SNOMED CT(R) 1. Chest pain CHEST PAIN 2. Nausea and vomiting NAUSEA AND VOMITING 3. Exposure to COVID-19 virus EXPOSURE TO SARS-COV-2 Disposition: Transfer to Another Facility Pt transferred to the ER via EMS. Follow up instructions: No follow-up provider specified. Please excuse any grammatical or spelling errors as this chart was documented using [employer], a dictation software. JESSICA LAMBERT FNP-BC 09/22/19 1347 JESSICA Lambert 09/22/19 1347 Cosigned by Jarred Cheek MD at 09/22/2019 4:53 PM CDT documented in this encounter Plan of Treatment Upcoming Encounters Date Type Department Care Team (Late st Contact Info) Description 03/14/2024 11:45 AM PRECISION INSTRUMENT MAKER AND REPAIRER Office Visit [facility] [address] Marvin Mckeon MD [facility] [address] [place] [address] 03/20/2024 11:30 AM PRECISION INSTRUMENT MAKER AND REPAIRER Office Visit [facility] Family Medicine - [place] [address] [place] [phone] Abiodun Segura II, MD [address] [place] [address] documented as of this encounter Procedures Procedure Name Priority Date/Time Associated Diagnosis Comments POCT GLUCOSE - CORREA DOCKED DEVICE STAT 09/22/2019 1:40 PM CDT POCT GLUCOSE - CORREA DOCKED DEVICE Routine 09/22/2019 1:35 PM CDT ECG 12-LEAD STAT 09/22/2019 1:26 PM CDT ELECTROCARDIOGRAM REPORT Routine 020 1:18 PM CDT documented in this encounter Results * (ABNORMAL) POCT glucose (09/22/2019 1:40 PM CDT) GLUCOSE WHOLE BLOOD 159(A) 70 - 100 mg/dL [facility] Keisha John BENCH GRINDER-BC POCT ORDERABLES - DEVICE Final Result Performing Organization Address [facility] Co de Phone Number [facility] [address] [place] [phone], * (ABNORMAL) POCT glucose (09/22/2019 1:35 PM CDT) GLUCOSE POC 159(H) 70 - 99 mg/dL 09/23/2019 8:07 AM CDT [facility] ORDERS INTERFACE 09/22/2019 1:35 PM CDT Keisha John BENCH GRINDER-BC POCT ORDERABLES - DEVICE Final Result Performing Organization Address City/[facility] de Phone Number [facility] ORDERS INTERFACE US * ECG 12 lead (09/22/2019 1:26 PM CDT) 09/22/2019 1:26 PM CDT Narrative [facility] ([facility] - 09/27/2019 3:51 AM CDT ?[facility] ? [address] [facility] ? Test Date: ?2019-09-22 Pat Name: ? LENA YOUNGBLOOD ?Department: ? Room: ? [id number] Gender: ? Female ? Farm Advisor: ?? MILO : ?1970 ? Requested By: KEISHA JOHN Order Number: [id number] ? Reading : ?? Alexei Rodríguez ? Measurements Intervals ?[place] ? Rate: ? 99 ? P: ?48 AR: ? 159 ?QRS: ?24 QRSD: ? 87 ? T: ?-14 QT: ? 333 ? QTc: ?428 ? Interpretive Statements SINUS RHYTHM NONSPECIFIC T-WAVE ABNORMALITY Compared to ECG 02/15/2019 15:12:57 No significant changes Procedure Note Alexei Rodríguez MD - 09/27/[address] [facility] [facility] [address] Test Date: 2019-09-22 Pat Name: LENA YOUNGBLOOD Department: Room: [place] [address] Gender: Female Farm Advisor: MILO : 1970 Requested By: KEISHA JOHN Order Number: [id number] Reading MD: Alexei Rodríguez Measurements Intervals [place] Rate: 99 P: 48 AR: 159 QRS: 24 QRSD: 87 T: -14 QT: 333 QTc: 428 Interpretive Statements SINUS RHYTHM NONSPECIFIC T-WAVE ABNORMALITY Compared to ECG 02/15/2019 15:12:57 No significant changes us Keisha KHALIL-JODI ECG ORDERABLES Final Res ult [facility] * EKG Reading (09/22/2019 1:18 PM CDT) Narrative Jarred Cheek MD - 09/22/2019 1:18 PM CDT JESSICA Lambert ? 09/22/2019 ??1:47 PM EKG Reading Date/Time: 09/22/2019 1:21 PM Performed by: JESSICA Lambert Authorized by: JESSICA Lambert Interpreted by ED physician: EKG interpreted by this provider. Comparison: not compared with previous ECG Previous ECG: no previous ECG available Rhythm: sinus rhythm Rate: tachycardic BPM: 99 QRS axis: normal ST Elevation: V1 and V2 Clinical impression: non-specific ECG us Keisha [facility] Final Result documented in this encounter Visit Diagnoses Diagnosis Chest pain- Primary Chest pain, unspecified Nausea and vomiting Nausea with vomiting Exposure to COVID-19 virus documented in this encounter Administered Medications Inactive Administered Medications - up to 3 most recent administrations Medication Order MAR Action Action Date Dose Rate Site ondansetron (ZOFRAN-ODT) disintegrating tablet 4 mg 4 mg, Oral, Once, 1 dose, On Sun09/22/19 at 1400 Given 09/22/2019 1:47 PM CDT 4 mg documented in this encounter Active and Recently Administered Medications Times are shown in CDT. Scheduled Medication Order 09/20/2019 09/21/2019 09/22/2019 ondansetron (ZOFRAN-ODT) disintegrating tablet 4 mg (COMPLETED) 4 mg, Oral, Once, 1 dose, On Sun09/22/19 at 1400 1347 (Given - Provid er: Vira Andres RN) documented in this encounter Care Teams Drafter Refrigeration Relationship Specialty Start Date End Date Jarred Rod MD PCP - General FAMILY PRACTICE 07/21/15 09/30/20 documented as of this encounter
--- OUTSIDE RECORDS SUMMARY | 2024-03-02 22:31 | XMS_ITS | Encounter Summary ---
Author Organization [facility] Address [address] [place] [address]. [place] [address] [place] [address] Care Team Providers Care Staff Anesthetist Name Role Phone Jarred Fernández MD Primary Care Provider Unav ailable Reason for Visit * Auth/Cert Specialty Diagnoses / Procedures Referred By Lyla chaney Referred To Contact Diagnoses POSTERIOR NECK MASS Procedures EXCISION POSTERIOR NECK MASS Referral ID Status Reason Start Date Expiration Date Visits Re quested Visits Authorized [id number] 1 1 Encounter Details Date Type Department Care Team (Latest Contact Info) Description 11/05/2019 9:18 AM CDT - 11/05/2019 4:10 PM CDT Hospital Encounter [facility] [address] Edson Chappell MD [address] [place] [address] Discharge Disposition: Home or Self Care [...] Sign Reading Time Taken Comments Blood Pressure 165/92 11/05/2019 4:00 PM CDT Pulse 76 11/05/2019 4:00 PM CDT Temperature 36.3 ??C (97.3 ??F) 11/05/2019 2:21 PM CD T Respiratory Rate 16 11/05/2019 4:00 PM CDT Oxygen Saturation 99% 11/05/2019 4:00 PM CDT Inhaled Oxygen Concentration - [...] Care Everywhere. * Hydrocodone and Acetaminophen, ADULT (Mozambican) * General Anesthesia Discharge Instructions (Mozambican) * Surgical Wound Discharge Instructions ([place]ozambican) documented in this encounter Medications at Time [...] 1:02 PM CDT General Surgery History & Physical-[facility] Lena Youngblood 49-year-old female Date [...] BUpivacaine-EPINEPHrine PF ??? vancomycin 1,250 mg Intravenous Maintenance Engineer Oil Field to OR Prior to Admission medications Medication [...] file Gets together: Not on file Attends jehovah's witness service: Not on file Active member of [...] 11/05/2019 2:11 PM CDT General Surgery Operative Report-[facility] Lena Youngblood is an 49-year-old female. Date of Operation: 11/05/2019 Preoperative diagnosis: Left posterior neck mass Postoperative diagnosis: Left posterior neck mass Procedure: Excision of left posterior neck mass Anesthesia: Monitor Anesthesia Care Assistants: Head Coach: RENAE Reeves Circulating Nurse 1: Edna Weathers RN Scrub Person 1: Hubert Griffin, DIESEL BUS MECHANIC Estimated blood loss: 5 cc Brief history: 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 to the patient's preoperative history and physical Operative procedure: After proper informed consent was obtained, the patient was taken to the operating room and placed in the zuame-spyf-bptg position. The lesion was identified with the [...] The patient was [facility]. I discussed the intraoperative findings [...] to hold insulin.Reviewed preop bathing instructions with hibiclens * OR PreOp - Melissa Brunson RN - 10/30/2019 11:35 AM CDT Can you climb 2 flights of stairs without chest pain or SOB? Yes, has foot problem that limits activity Are you physically able to do the same things today that you could 6 months ago? yes Have you had cardiac testing? Yes, had cardiac testing 2 or 3 months ago at [place], [place] Do you see a radiology rn? no documented in this encounter Plan of Treatment Upcoming Encounters Date Type Department Care Team (Late st Contact Info) Description 03/14/2024 11:45 AM FLYING TEACHER Office Visit [facility] [phone] Marvin Mckeon MD [facility] [address] [place] [address] 03/20/2024 11:30 AM FLYING TEACHER Office Visit [facility] Family Medicine - [place] [phone] Abiodun Segura II, MD [address] [place] [address] documented as of this encounter Procedures Procedure Name Priority Date/Time Associated Diagnosis Comments POCT GLUCOSE - CORREA DOCKED DEVICE Routine 11/05/2019 2:27 PM CDT EXCISION MASS/CYST/TUMOR 11/05/2019 1:26 PM CDT POSTERIOR NECK MASS Case Notes SCHED WITH JAY ON 10/20/19 [facility] PHONE ASSESS POCT GLUCOSE - CORREA DOCKED DEVICE Routine 11/05/2019 10:49 AM CDT PATHOLOGY Routine 11/05/2019 12:00 AM CDT documented in this encounter Results * POCT glucose (11/05/2019 2:27 PM CDT) GLUCOSE POC 71 70 - 99 mg/dL 11/05/2019 2:29 PM CDT [facility] 11/05/2019 2:27 PM CDT us Edson Chappell MD POCT ORDERABLES - DEVICE Final Result Performing Organization Address City/[facility]/ZIP Co de Phone Number [facility] [address] [place] [address], [place] [phone] * POCT glucose (11/05/2019 10:49 AM CDT) GLUCOSE POC 97 70 - 99 mg/dL 11/05/2019 10:58 AM CDT [facility] 11/05/2019 10:4 9 AM CDT us Edson Chappell MD POCT ORDERABLES - DEVICE Final Result [facility] [address] [place] [address], [place] [phone] * Pathology (11/05/2019 12:00 AM CDT) COPATH REPORT ? [facility] ? [address] ? [place], [place] ??[address] ? [phone] ? Department of Pathology ? Pathology Report ? SURGICAL FINAL REPORT Patient Name: LENA YOUNGBLOOD ? : 1970 (Age: 49) ? Location: [facility] Gender: F ?Collected Date: 11/05/2019 Med Rec #: [id number] ?Date Received: 11/05/2019 Date Reported: 11/06/2019 Provider: [...] material. ??No papillary excrescences are grossly identified. Solo Truck Driver sections are submitted, as follows: 1. ??One complete cross section (to display cystic cavity) :pb Billing Fee Code(s): 35259 [facility] Tissue specimen (specimen) (OTHER (type in comments)) 11/05/2019 1:52 PM CDT us Edson Chappell MD PATHOLOGY/CYTOLOGY ORDERA BLES Final Result [facility] [address] [place] [address], [place] [phone] documented in this encounter Visit Diagnoses Diagnosis Neck mass- Primary Swelling, mass, or lump in head and neck Pre-op exam Preoperative examination, unspecified documented in this encounter Administered Medications [...] IVPB 1,250 mg, Intravenous, at 175 mL/hr, mail caller to O.R., 1 dose, First dose on Sun11/05/19 at 0945, Pre-OpIndications:Neck mass New Bag 11/05/2019 12:49 PM CDT 1,250 mg 17 5 mL/hr documented in this encounter Active and Recently Administered Medications Times are shown in CDT. Scheduled Medication Order 11/03/2019 11/04/2019 11/05/2019 vancomycin (VANCOCIN) 1,250 mg in sodium chloride 0.9 % 250 mL IVPB (COMPLETED) 1,250 mg, Intravenous, at 175 mL/hr, mail caller to O.R., 1 dose, First dose on [...] Medication Order 11/03/2019 11/04/2019 11/05/2019 BUpivacaine-EPINEPHrine 0.5% -[id number] injection (CANCELED) As needed, Starting on Sun11/05/19 at 1350, Until Sun11/05/19 at 1418, Intra-Op 1350 (Given - Provid er: Edson Chappell MD) documented in this encounter Care Teams Staff Anesthetist Relationship Specialty Start Date End Date Jarred Fernández MD PCP - General FAMILY PRACTICE 07/21/15 09/30/20 documented as of this encounter
--- OUTSIDE RECORDS SUMMARY | 2024-03-02 22:31 | XMS_ITS | Encounter Summary ---
Author Organization [facility] Address [address] [place] [address]. [place], [place] [address] [place] [address] Care Team Providers Care Acting Manager Name Role Phone Jarred Rod MD Primary Care Provider Unav ailable Shira Shi PA-C Primary Care Provider [phone] Jarred Rod MD Primary Care Provider Unav ailable Colton SILVEIRA MD, Abiodun L Primary Care Provider Jarred Rod MD Primary Care Provider Unav ailable Encounter Details Date Type Department Care Team (Latest Contact Info) Description 07/09/2019 Scan HEALTH INFO SRVCS Scanned, Documents Social [...] COVID-19? No / Unsure 01/24/2021 11:10 AM METAL BUILDINGS ASSEMBLER documented as of this encounter Functional Status [...] Contact Info) Description 03/14/2024 11:45 AM METAL BUILDINGS ASSEMBLER Office Visit [facility] [phone] Marvin Mckeon MD [facility] [address] [place] [phone] 03/20/2024 11:30 AM METAL BUILDINGS ASSEMBLER Office Visit [facility] Family Medicine - [address] [phone] Abiodun Segura II, MD [address] [place] [phone] documented as of this encounter Visit Diagnoses Not on filedocumented in this encounter Additional Health Concerns Infection Onset Date Last Indicated Resolved Time COVID-19 Rule Out 09/22/2019 09/22/2019 09/24/2019 11:13 PM CDT COVID-19 Rule Out 11/02/2019 11/02/2019 11/03/2019 3:22 PM CDT COVID-19 Rule Out 12/13/2019 12/13/2019 12/14/2019 3:06 PM CDT COVID-19 Confirmed 12/13/2019 12/13/2019 0 12:34 AM METAL BUILDINGS ASSEMBLER documented as of this encounter Care Teams Acting Manager Relationship Specialty Start Date End Date Jarred Rod MD PCP - General FAMILY PRACTICE 07/21/15 09/30/20 Shira Shi, JESUSC [address] [place] [address] PCP - General PHYSICIAN RAG PRODUCTION WORKER 10/01/20 11/17/20 Jarred Rod MD [address] [place] [address] PCP - General FAMILY PRACTICE 11/18/20 12/05/20 Abiodun Segura II, MD [address] [place] [address] PCP - General FAMILY PRACTICE 12/06/20 01/16/21 Jarred Rod MD [address] [place] [address] PCP - General FAMILY PRACTICE 01/17/21 03/08/21 documented as of this encounter
--- OUTSIDE RECORDS SUMMARY | 2024-03-02 22:31 | XMS_ITS | Encounter Summary ---
Author Organization [facility] Address [address] [place] [address]. [place], [place] [address] [place] [address] Care Team Providers Care Resident Program Specialist Name Role Phone Jarred Rod MD Primary Care Provider Unav ailable Shira Shi PA-C Primary Care Provider [phone] Jarred Rod MD Primary Care Provider Unav ailable Colton SILVEIRA MD, Abiodun L Primary Care Provider Jarred Rod MD Primary Care Provider Unav ailable Encounter Details Date Type Department Care Team (Latest Contact Info) Description 08/27/2019 Scan HEALTH INFO SRVCS Scanned, Documents Social [...] COVID-19? No / Unsure 01/24/2021 11:10 AM BALLING HEAD TENDER documented as of this encounter Functional [...] st Contact Info) Description 03/14/2024 11:45 AM BALLING HEAD TENDER Office Visit [facility] [phone] Marvin Mckeon MD [facility] [address] [place] [address] 03/20/2024 11:30 AM BALLING HEAD TENDER Office Visit [facility] Family Medicine - [place] [address] [place] [phone] Abiodun Segura II, MD [address] [place] [address] documented as of this encounter Visit Diagnoses Not on filedocumented in this encounter Additional Health Concerns Infection Onset Date Last Indicated Resolved Time COVID-19 Rule Out 09/22/2019 09/22/2019 09/24/2019 11:13 PM CDT COVID-19 Rule Out 11/02/2019 11/02/2019 11/03/2019 3:22 PM CDT COVID-19 Rule Out 12/13/2019 12/13/2019 12/14/2019 3:06 PM CDT COVID-19 Confirmed 12/13/2019 12/13/2019 0 12:34 AM BALLING HEAD TENDER documented as of this encounter Care Teams Resident Program Specialist Relationship Specialty Start Date End Date Jarred Rod MD PCP - General FAMILY PRACTICE 07/21/15 09/30/20 Shira Shi PA-C [address] [place] [phone] PCP - General PHYSICIAN SOLAR TECH 10/01/20 11/17/20 Jarred Rod MD [address] [place] [address] PCP - General FAMILY PRACTICE 11/18/20 12/05/20 Abiodun Segura II, MD [address] [place] [address] PCP - General FAMILY PRACTICE 12/06/20 01/16/21 Jarred Rod MD [address] [place] [phone] PCP - General FAMILY PRACTICE 01/17/21 03/08/21 documented as of this encounter
--- OUTSIDE RECORDS SUMMARY | 2024-03-02 22:31 | XMS_ITS | Encounter Summary ---
Author Organization [facility] Address [address] [place] [address]. [place], [place] [id number] [place] [id number] Care Team Providers Care Pulvi Mixer Operator Name Role Phone Jarred Rod MD Primary Care Provider Unav ailable Shira Shi PA-C Primary Care Provider [phone]- [phone] Jarred Rod MD Primary Care Provider Unav ailable Colton SILVEIRA MD, Abiodun L Primary Care Provider Jarred Rod MD Primary Care Provider Unav ailable Reason for Visit * Reason Comments Pathology (SCAN) Encounter Details Date Type Department Care Team (Late st Contact Info) Description 11/05/2019 Scan [facility] SRVCS Scanned, Documents Pathology (SCAN) Social History Tobacco Use Types Packs/Day [...] COVID-19? No / Unsure 01/24/2021 11:10 AM MULTIMEDIA EDUCATIONAL SPECIALIST documented as of this encounter Functional [...] st Contact Info) Description 03/14/2024 11:45 AM MULTIMEDIA EDUCATIONAL SPECIALIST Office Visit [facility] [phone] Marvin Mckeon MD Three [facility] [address] [place], [place] [phone] 03/20/2024 11:30 AM MULTIMEDIA EDUCATIONAL SPECIALIST Office Visit [facility] Family Medicine - [place] [phone] Abiodun Segura II, MD [address] [place] [address] documented as of this encounter Procedures Procedure Name Priority Date/Time Associated Diagnosis Comments PATHOLOGY GENERIC (SCAN ORDER) 11/05/2019 documented in this encounter Results * PATHOLOGY GENERIC (11/05/2019) 11/05/2019 Narrative 11/05/2019 Ordered by an unspecified provider. us Documents Scanned SCANNING Final Result documented in this encounter Visit Diagnoses Not on filedocumented in this encounter Additional Health Concerns Infection Onset Date Last Indicated Resolved Time COVID-19 Rule Out 12/13/2019 12/13/2019 12/14/2019 3:06 PM CDT COVID-19 Confirmed 12/13/2019 12/13/2019 0 12:34 AM MULTIMEDIA EDUCATIONAL SPECIALIST documented as of this encounter Care Teams Pulvi Mixer Operator Relationship Specialty Start Date End Date Jarred Rod MD PCP - General FAMILY PRACTICE 07/21/15 09/30/20 Shira Shi PA-C [address] [place] [address] PCP - General PHYSICIAN MILLER ROD MILL 10/01/20 11/17/20 Jarred Rod MD [address] [place] [address] PCP - General FAMILY PRACTICE 11/18/20 12/05/20 Abiodun Segura II, MD [address] [place] [address] PCP - General FAMILY PRACTICE 12/06/20 01/16/21 Jarred Rod MD [address] [place] [address] PCP - General FAMILY PRACTICE 01/17/21 03/08/21 documented as of this encounter
--- OUTSIDE RECORDS SUMMARY | 2024-03-02 22:31 | XMS_ITS | Encounter Summary ---
Author Organization [facility] Address [address] [place] [address]. [place] [address] [place] [address] Care Team Providers Care Line Maintainer Name Role Phone Jarred Rod MD Primary Care Provider Unav ailable Encounter Details Date Type Department Care Team (Latest Contact Info) Description 10/30/2019 Travel Social History Tobacco Use Types Packs/Day [...] st Contact Info) Description 03/14/2024 11:45 AM FRENCH TEACHER Office Visit [facility] [phone] Marvin Mckeon MD [facility] [address] [place] [address] 03/20/2024 11:30 AM FRENCH TEACHER Office Visit [facility] Family Medicine - [address] [phone] Abiodun Segura II, MD [address] [place] [address] documented as of this encounter Visit Diagnoses Not on filedocumented in this encounter Care Teams Line Maintainer Relationship Specialty Start Date End Date Jarred Rod MD PCP - General FAMILY PRACTICE 07/21/15 09/30/20 documented as of this encounter
--- OUTSIDE RECORDS SUMMARY | 2024-03-02 22:31 | XMS_ITS | Encounter Summary ---
Author Organization [facility] Address [address] [place] [address]. [place], [place] [id number] [place] [address] Care Team Providers Care Technical Illustrations Map Inker Name Role Phone Jarred Rod MD Primary Care Provider Unav ailable Shira Shi PA-C Primary Care Provider [phone]- [phone] Jarred Rod MD Primary Care Provider Unav ailable Colton SILVEIRA MD, Abiodun L Primary Care Provider Jarred Rod MD Primary Care Provider Unav ailable Reason for Visit * Reason Comments Image (SCAN) Encounter Details Date Type Department Care Team (Latest Contact Info) Description 09/22/2019 Scan [facility] SRV[facility] Scanned, Documents Image (SCAN) [...] COVID-19? No / Unsure 01/24/2021 11:10 AM MILITARY EXCHANGE WIRELESS MANAGER documented as of this encounter Functional [...] st Contact Info) Description 03/14/2024 11:45 AM MILITARY EXCHANGE WIRELESS MANAGER Office Visit [facility] [phone] Marvin Mckeon MD Three [facility] [address] [place], [place] [phone] 03/20/2024 11:30 AM MILITARY EXCHANGE WIRELESS MANAGER Office Visit [facility] Family Medicine - [place] [phone] Abiodun Segura II, MD [address] [place] [address] documented as of this encounter Procedures Procedure Name Priority Date/Time Associated Diagnosis Comments IMAGE GENERIC 09/22/2019 documented in this encounter Results * IMAGE GENERIC (09/22/2019) Anatomical Region Laterality Modality Other 09/22/2019 Narrative 09/22/2019 Ordered by an unspecified provider. us Documents [...] COVID-19 Confirmed 12/13/2019 12/13/2019 0 12:34 AM MILITARY EXCHANGE WIRELESS MANAGER documented as of this encounter Care Teams Technical Illustrations Map Inker Relationship Specialty Start Date End Date Jarred Rod MD PCP - General FAMILY PRACTICE 07/21/15 09/30/20 Shira Shi PA-C [address] [place] [phone] PCP - General PHYSICIAN NUT PACKER 10/01/20 11/17/20 Jarred Rod MD [address] [place] [phone] PCP - General FAMILY PRACTICE 11/18/20 12/05/20 Abiodun Segura II, MD [address] [place] [address] PCP - General FAMILY PRACTICE 12/06/20 01/16/21 Jarred Rod MD [address] [place] [address] PCP - General FAMILY PRACTICE 01/17/21 03/08/21 documented as of this encounter
--- OUTSIDE RECORDS SUMMARY | 2024-03-02 22:31 | XMS_ITS | Encounter Summary ---
Author Organization [facility] Address [address] [place] [address]. [place] [address] [place] [address] Care Team Providers Care Angledozer Operator Name Role Phone Jarred Rod MD Primary Care Provider Unav ailable Encounter Details Date Type Department Care Team (Latest Contact Info) Description 05/01/2019 Travel Social History Tobacco Use Types Packs/Day [...] st Contact Info) Description 03/14/2024 11:45 AM TAMALE MAKER Office Visit [facility] [phone] Marvin Mckeon MD Three [facility] [address] [place] [address] 03/20/2024 11:30 AM TAMALE MAKER Office Visit [facility] Family Medicine - [place] [address] [place] [phone] Abiodun Segura II, MD [address] [place] [address] documented as of this encounter Visit Diagnoses Not on filedocumented in this encounter Care Teams Angledozer Operator Relationship Specialty Start Date End Date Jarred Rod MD PCP - General FAMILY PRACTICE 07/21/15 09/30/20 documented as of this encounter
--- OUTSIDE RECORDS SUMMARY | 2024-03-02 22:31 | XMS_ITS | Encounter Summary ---
Author Organization [facility] Address [address] [place] [address]. [place] [address] [place] [address] Care Team Providers Care Soil Conservationist Name Role Phone Jarred Rod MD Primary Care Provider Unav ailable Reason for Referral * Imaging (Emergency) - Closed Specialty Diagnoses / Procedures Referred By Lyla chaney Referred To Contact RADIOLOGY Procedures CT ABD+PEL W IV CON ONLY Kvng Lewis MD [address] [address] Phone: tel: fax: Referral ID Status Reason Start Date Expiration Date Visits Re quested Visits Authorized [id number] Closed 11/12/2019 12/11/2020 1 1 Reason for Visit * Reason Comments Abdominal Pain Encounter Details Date Type Department Care Team (Late st Contact Info) Description 11/12/2019 12:31 AM CDT - 11/12/2019 4:26 AM CDT Emergency [facility] Emergency Room [place], [place] [id number] Kvng Lewis MD [address] [phone] Abdominal Pain Discharge Disposition: Home or Self [...] Sign Reading Time Taken Comments Blood Pressure 118/77 11/12/2019 2:41 AM CDT Pulse 85 11/12/2019 2:41 AM CDT Temperature 36.2 ??C (97.1 ??F) 11/11/2019 11:54 PM C DT Respiratory Rate 18 11/12/2019 2:41 AM CDT Oxygen Saturation 100% 11/12/2019 2:41 AM CDT Inhaled Oxygen Concentration - - Weight 88.9 kg (196 lb) 11/11/2019 11:54 PM CDT Height 167.6 cm (5' 6 ) 11/11/2019 11:54 PM CDT Body Mass Index 31.64 11/11/2019 11:54 PM CDT documented in this encounter Functional [...] be sent through Care Everywhere. * Urinary Obstruction Discharge Instructions ([place]) documented in this encounter Medications at [...] For Moderate Pain 10 tablet 11/05/2019 1 HYDROcodone-acet aminophen 5-325 MG tabletIndication s:Acute [...] as of this encounter ED Notes * Erica Gan RN - 11/12/2019 3:20 AM CDT Pt taken to CT. ERICA GAN RN * Kvng Lewis MD - 11/12/2019 12:30 AM CDT Chief Complaint Chief Complaint Patient presents with ??? Abdominal Pain History of Present Illness This patient is a 49yo AAF with PMH HTN, DM who presents to the ED for evaluation of abdominal pain. The patient states that she has suffered from this discomfort for quite a while (months). It recently worsened and is severe. The pain began in her right CVA then radiated to her lower abdomen. Currenly, it is most severe in the LLQ. She denies fever/chills, nausea/vomiting, diarrhea, constipation, GI bleeding. Previous abdominal surgeries include bladder sling, right salpingectomy. Medical History ALLERGIES: Allergies Allergen Reactions ??? Amoxicillin Rash ??? Penicillins Rash MEDICATIONS: Prior to Admission medications Medication Sig Start Date End Date Taking? Authorizing Provider cyclobenzaprine 5 MG tablet TAKE 1 TABLET BY MOUTH THREE TIMES DAILY NEEDED FOR MUSCLE SPASM 09/22/19 Yes Doc Abstract docusate sodium 100 MG capsule Take 1 capsule (100 mg total) by mouth 2 (two) times daily. Patient taking differently: Take 100 mg by mouth 2 (two) times daily as needed. 05/01/19 Yes Katja Lewis MD HYDROcodone-acetaminophen 5-325 MG tablet Take 1-2 tablets by mouth every 6 (six) hours as needed. Indications: Acute Pain < 7 Day Supply 11/12/19 Yes Kvng Lewis MD lisinopril 40 MG tablet Take 40 mg by mouth nightly. 11/03/16 Yes Doc Abstract simvastatin 40 MG tablet Take 40 mg by mouth nightly at bedtime. 11/03/16 Yes Doc Abstract TRULICITY 1.5 MG/0.5ML Solution Pen-injector Inject 1.5 mg into the skin every 7 days. INJECT ON Sunday10/07/18 Yes Doc Abstract HUMALOG MIX 75/25 (75-25) 100 UNIT/ML Suspension [...] For Moderate Pain 11/05/19 Yun Chappell MD metoprolol tartrate 50 MG tablet Take 50 mg by mouth 2 (two) times a day. 06/14/18 Doc Abstract PAST MEDICAL HISTORY: Past Medical [...] Negative. Cardiovascular: Negative. Gastrointestinal: Positive for abdominal pain. Negative for blood in stool, constipation, diarrhea,nausea and vomiting. Genitourinary: Negative. Musculoskeletal: Negative. Skin: Negative. Neurological: Negative. All other systems reviewed and are negative. Physical Exam Filed Vitals: 11/11/19 2354 11/12/19 0241 BP: (!) 139/100 118/77 Pulse: 84 85 Resp: 18 18 Temp: 97.1 ??F (36.2 ??C) SpO2: 96% 100% Weight: 88.9 kg (196 lb) Height: 5' 6 (1.676 m) Physical Exam Constitutional: She is oriented to person, place, and time. She appears well- developed and well-nourished. Anxious and tearful. Appears very uncomfortable. HENT: Head: Normocephalic and atraumatic. Mouth/Throat: Oropharynx is clear and moist. Eyes: Pupils are equal, round, and reactive to light. Conjunctivae and EOM are normal. Neck: Normal range of motion. Neck supple. No JVD present. No tracheal deviation present. Cardiovascular: Normal rate, regular rhythm, normal heart sounds and intact distal pulses. Pulmonary/Chest: Effort normal and breath sounds normal. Abdominal: Soft. She exhibits no distension and no mass. There is tenderness (Mild tenderness across lower abdomen.). There is no rebound and no guarding. Musculoskeletal: Normal range of motion. She exhibits no edema. Lymphadenopathy: She has no cervical adenopathy. Neurological: She is alert and oriented to person, place, and time. She has normal strength. No sensory deficit. No motor deficit. Skin: Skin is warm and dry. Nursing note and vitals reviewed. Diagnostic Studies / Procedures ELECTROCARDIOGRAMS: No results found for this visit on 11/12/19. LABORATORY STUDIES: Results for orders placed or performed during the hospital encounter of 11/12/19 CBC W/DIFF AUTOMATED Result Value Ref Range WBC 13.1 (H) 4.5 - 11.0 x10'3/uL RBC 3.95 (L) 4.20 - 5.40 x10'6/uL HGB 12.0 12.0 - 16.0 G/DL HCT 36.1 (L) 38.0 - 48.0 % MCV 91.4 80.0 - 94.0 FL MCH 30.4 27.0 - 31.0 PG MCHC 33.2 32.0 - 36.0 G/DL RDW 12.7 11.5 - 14.5 % PLT 281 130 - 400 x10'3/uL MPV 11.3 9.3 - 12.2 FL DIFFERENTIAL TYPE AUTOMATED DIFFERENTIAL NEUTROPHILS 79.5 % LYMPHOCYTES 15.0 % MONOCYTES 3.3 % EOSINOPHILS 1.4 % BASOPHILS 0.4 % IMMATURE GRANS 0.4 % ABS. NEUTROPHILS TOTAL 10.42 (H) 1.80 - 7.70 x10'3/uL ABS. LYMPHOCYTES 1.97 1.00 - 4.80 x10'3/uL ABS. MONOCYTES 0.43 0.24 - 0.86 x10'3/uL ABS. EOSINOPHILS 0.18 0.04 - 0.36 x10'3/uL ABS. BASOPHILS 0.05 0.01 - 0.08 x10'3/uL ABS. IMMATURE GRANULOCYTES 0.05 0.00 - 0.49 x10'3/uL COMPREHENSIVE METABOLIC PANEL Result Value Ref Range GLUCOSE 109 (H) 70 - 99 MG/DL BUN 20 (H) 7 - 18 MG/DL CREATININE S/P/B 1.23 (H) 0.55 - 1.02 MG/DL SODIUM 137 136 - 145 MMOL/L POTASSIUM 3.9 3.5 - 5.1 MMOL/L CHLORIDE S/P/B 103 100 - 108 MMOL/L CO2 28.5 21 - 32 MMOL/L CALCIUM 9.3 8.5 - 10.1 MG/DL BILIRUBIN TOTAL S/P/B 0.4 0.2 - 1.2 MG/DL TOTAL PROTEIN S/P/B 7.9 6.4 - 8.2 G/DL ALBUMIN S/P/B 3.6 3.4 - 5.0 G/DL AST 23 15 - 37 U/L ALT 38 14 - 55 U/L ALKALINE PHOSPHATASE S/P/B 133 50 - 136 U/L ANION GAP 5.5 5 - 15 MMOL/L BUN CREATININE RATIO 16.3 6 - 26 A/G RATIO 0.8 (L) 1.0 - 2.0 RATIO eGFR Non-Afr. Amer. 52 (L) >90 ML/MIN/1.73 M2 eGFR Afr. Amer. 60 (L) >90 ML/MIN/1.73 M2 LIPASE Result Value Ref Range LIPASE 100 73 - 393 UNITS/L URINALYSIS Result Value Ref Range Specimen Type URINE CLEAN CATCH COLOR (U) YELLOW TRANSPARENCY CLEAR Specific [place] (U) 1.014 1.001 - 1.030 U PH 6.5 5.0 [...] (A) NONE /HPF SQUAMOUS EPITHELIALS RARE /HPF POCT urine Result Value Ref Range URINE HCG TEST Negative NEGATIVE Internal Control performed as Expected? LOT: [id number] EXP:2019-06-[address] ABD+PEL W IV CON ONLY Final Result by User, [id number] (11/11 035) Date: 11/12/2019 3:22 AM Exam: CT ABD+PEL W CON Comparison: CT abdomen and pelvis dated 08/11/2019. Technique: Thin section images were obtained of the abdomen and pelvis with IV contrast. 100 mL of Isovue-370 through existing IV site. Coronal and sagittal reconstructions. A dose lowering technique was used for this procedure, which may include, but is not limited to, dose reduction technique, automated exposure control, the use of iterative reconstruction, and ALARA (As Low As Reasonably Achievable)/ Image gently techniques. History: Lower abdominal pain. Most severe pain is in the left lower quadrant. Previous abdominal surgeries include bladder sling, right salpingectomy. Findings: Visualized lower chest: There are no consolidations nor pleural effusions. The visualized inferior heart is normal in size. Abdomen and pelvis: There is subjective mild steatosis of the liver. The liver is otherwise unremarkable. The gallbladder, bile ducts, spleen, pancreas and adrenal glands appear normal. There is a nonobstructing 3 mm calculus in the mid left kidney. There is considerable hydronephrosis and caliectasis in the right kidney unchanged from the prior study. There is a tiny calcification involving a medial upper pole calyx in the right kidney. These changes in the right kidney are possibly due to a right UPJ obstruction. There is right renal parenchymal thinning. There are no ureteral stones. The urinary bladder is underdistended, but thought to be normal. There is scattered calcified disease in the abdominal aorta without aneurysm. The abdominal aorta, IVC and iliac vessels appear patent. There is no lymphadenopathy. The stomach is normal. There is no bowel obstruction. The appendix appears normal. The colon appears grossly normal. There is no diverticulosis nor diverticulitis. There is no inflammation, free fluid nor free air. The uterus is surgically absent. There are scattered pelvic phleboliths. There are bilateral ovarian vein phleboliths. Osseous structures: The osseous structures appear grossly normal. Impression: 1. No acute inflammatory abnormality. No bowel obstruction. Normal appendix. No diverticulosis nor diverticulitis. 2. Unchanged considerable right renal hydronephrosis and caliectasis with renal parenchymal thinning. Possible right UPJ obstruction. 3. Tiny calculus in the medial upper pole calyx right kidney. 3 mm calculus in the mid left kidney. Interpreted By: Hubert Rizo MD, 11/12/2019 3:49 AM ED Course / Medical Decision Making 08/11/19 CT revealed enlarging 4.6cm left ovarian cyst. 08/14/19 Pt underwent JESUSITA and right salpingectomy The patient continued to have pain but was much more comfortably following pain medication. Workup reveals a right UPJ obstruction. This is the likely etiology of her discomfort. She has apparently been evaluated by Dr. Hair for this in the past. However, the patient is seeking a second opinion at [facility] because she does not wish to travel to [place] as recommended. Will discharge home with pain medication and refer to urology here. Clinical Impression UPJ obstruction, acquired (Primary) Disposition: Discharge Kvng Lewis MD 11/12/192126 * Yeni Hoover RN - 11/11/2019 11:53 PM CDT Pt complains of lower abdominal pain, states it feels like something is balling up, denies difficulty with elimination. States this has been going on for a while but no one can figure out what's wrong. 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 - [place] [address] [place] [phone] Abiodun Segura II, MD [address] [place], [place] [phone] documented as of this encounter Procedures Procedure Name Priority Date/Time Associated Diagnosis Comments CT ABD+PEL W CON STAT 11/12/2019 3:39 AM CDT POCT URINE (BACK OFFICE) STAT 11/12/2019 2:42 AM CDT HC URINALYSIS AUTO W/O MICRO STAT 11/12/2019 2:36 AM CDT COMPREHENSIVE METABOLIC PANEL STAT 11/12/2019 1:28 AM CDT CBC W/DIFF AUTOMATED STAT 11/12/2019 1:28 AM CDT LIPASE STAT 11/12/2019 1:28 AM CDT documented in this encounter Results * CT ABD+PEL W IV CON ONLY (11/12/2019 3:39 AM CDT) Anatomical Region Laterality Modality Abdomen Computed Tomogra phy 11/12/2019 3:49 AM CDT Impressions 11/12/2019 3:57 AM CDT Impression: 1. ??No acute inflammatory abnormality. ??No bowel obstruction. ??Normal appendix. ??No diverticulosis nor diverticulitis. 2. ??Unchanged considerable right renal hydronephrosis and caliectasis with renal parenchymal thinning. ??Possible right UPJ obstruction. 3. ??Tiny calculus in the medial upper pole calyx right kidney. ??3 mm calculus in the mid left kidney. Interpreted By: Hubert Rizo MD, 11/12/2019 3:49 AM Narrative 11/12/2019 3:57 AM CDT Date: 11/12/2019 3:22 AM Exam: CT ABD+PEL W CON Comparison: CT abdomen and pelvis dated 08/11/2019. Technique: Thin section images were obtained of [...] As Reasonably Achievable)/ Image gently techniques. History: Lower abdominal pain. ??Most severe pain is in the left lower quadrant. ??Previous abdominal surgeries include bladder sling, right salpingectomy. Findings: Visualized lower chest: There are no consolidations nor pleural effusions. ??The visualized inferior heart is normal in size. Abdomen and pelvis: There is subjective mild steatosis of the liver. ??The liver is otherwise unremarkable. ??The gallbladder, bile ducts, spleen, pancreas and adrenal glands appear normal. ??There is a nonobstructing 3 mm calculus in the mid left kidney. ??There is considerable hydronephrosis and caliectasis in the right kidney unchanged from the prior study. ??There is a tiny calcification involving a medial upper pole calyx in the right kidney. ??These changes in the right kidney are possibly due to a right UPJ obstruction. ??There is right renal parenchymal thinning. ??There are no ureteral stones. ??The urinary bladder is underdistended, but thought to be normal. There is scattered calcified disease in the abdominal aorta without aneurysm. ??The abdominal aorta, IVC and iliac vessels appear patent. ??There is no lymphadenopathy. ??The stomach is normal. ??There is no bowel obstruction. ??The appendix appears normal. ??The colon appears grossly normal. ??There is no diverticulosis nor diverticulitis. ??There is no inflammation, free fluid nor free air. ??The uterus is surgically absent. ??There are scattered pelvic phleboliths. ??There are bilateral ovarian vein phleboliths. Osseous structures: The osseous structures appear grossly normal. Procedure Note Hubert Rizo MD - 11/12/2019 Date: 11/12/2019 3:22 AM Exam: CT ABD+PEL W CON Comparison: CT abdomen and pelvis dated 08/11/2019. Technique: Thin section images were obtained of the abdomen and pelviswith IV contrast. 100 mL of Isovue-370 through existing IV site. Coronaland sagittal reconstructions. A dose lowering technique was used for thisprocedure, which may include, but is not limited to, dose reductiontechnique, automated exposure control, the use of iterativereconstruction, and ALARA (As Low As Reasonably Achievable)/ Image gentlytechniques. History: Lower abdominal pain. Most severe pain is in the left lowerquadrant. Previous abdominal surgeries include bladder sling, rightsalpingectomy. Findings: Visualized lower chest: There are no consolidations nor pleural effusions.The visualized inferior heart is normal in size. Abdomen and pelvis: There is subjective mild steatosis of the liver. Theliver is otherwise unremarkable. The gallbladder, bile ducts, spleen,pancreas and adrenal glands appear normal. There is a nonobstructing 3 mmcalculus in the mid left kidney. There is considerable hydronephrosis andcaliectasis in the right kidney unchanged from the prior study. There sonido tiny calcification involving a medial upper pole calyx in the rightkidney. These changes in the right kidney are possibly due to a right UPJobstruction. There is right renal parenchymal thinning. There are noureteral stones. The urinary bladder is underdistended, but thought to benormal. There is scattered calcified disease in the abdominal aorta withoutaneurysm. The abdominal aorta, IVC and iliac vessels appear patent.There is no lymphadenopathy. The stomach is normal. There is no bowelobstruction. The appendix appears normal. The colon appears grosslynormal. There is no diverticulosis nor diverticulitis. There is noinflammation, free fluid nor free air. The uterus is surgically absent.There are scattered pelvic phleboliths. There are bilateral ovarian veinphleboliths. Osseous structures: The osseous structures appear grossly normal. Impression: 1. No acute inflammatory abnormality. No bowel obstruction. Normalappendix. No diverticulosis nor diverticulitis. 2. Unchanged considerable right renal hydronephrosis and caliectasis withrenal parenchymal thinning. Possible right UPJ obstruction. 3. Tiny calculus in the medial upper pole calyx right kidney. 3 mmcalculus in the mid left kidney. Interpreted By: Hubert Rizo MD, 11/12/2019 3:49 AM Kvng Lewis MD CT Final Re sult * POCT urine (11/12/2019 2:42 AM CDT) URINE HCG TEST Negative NEGATIVE Internal Control performed as Expected? LOT: [id number] EXP: VALID Kvng Lewis MD POINT OF CARE TEST ORDER ROLF Final Result * (ABNORMAL) URINALYSIS (11/12/2019 2:36 AM CDT) SPECIMEN TYPE URINE CLEAN CATCH 11/12/2019 2:36 AM CDT [facility] COLOR (U) YELLOW 11/12/2019 3:07 AM CDT [facility] TRANSPARENCY CLEAR 11/12/2019 3:07 AM CDT [facility] SPECIFIC GRAVITY (U) 1.014 1.001 - 1.030 11/12/2019 3:07 AM CDT [facility] U PH 6.5 5.0 - 9.0 11/12/2019 3:07 AM CDT [facility] LEUKOCYTES (U) NEGATIVE NEGATIVE 11/12/2019 3:07 AM CDT [facility] NITRITES NEGATIVE NEGATIVE 11/12/2019 3:07 AM CDT [facility] PROTEIN (U) 100(H) <30 MG/DL 11/12/2019 3:07 AM CDT [facility] URINE GLUCOSE NORMAL NORMAL MG/DL 11/12/2019 3:07 AM CDT [facility] KETONES MG/DL (U) NEGATIVE NEGATIVE MG/DL 11/12/2019 3:07 AM CDT [facility] UROBILINOGEN NORMAL NORMAL MG/DL 11/12/2019 3:07 AM CDT [facility] BILIRUBIN (U) NEGATIVE NEGATIVE MG/DL 11/12/2019 3:07 AM CDT [facility] BLOOD (U) NEGATIVE NEGATIVE 11/12/2019 3:07 AM CDT [facility] CULTURE & SENSITIVITY INDICATED? CULTURE IS NOT INDICATED 11/12/2019 3:07 AM CDT [facility] MUCUS RARE /LPF 11/12/2019 3:07 AM CDT [facility] WBC/HPF 1 <6 /HPF 11/12/2019 3:07 AM CDT [facility] RBC/HPF 1 <6 /HPF 11/12/2019 3:07 AM CDT [facility] BACTERIA (U) RARE(A) NONE /HPF 11/12/2019 3:07 AM CDT [facility] SQUAMOUS EPITHELIALS RARE /HPF 11/12/2019 3:07 AM CDT [facility] URINE SPECIMEN OBTAINED BY CLEAN CATCH PROCEDURE / Unknown 11/12/2019 2:36 AM CDT Kvng Lewis MD URINE ORDERABLES Final R esult [facility] [address] [place] [address], [place] [phone] * LIPASE (11/12/2019 1:28 AM CDT) LIPASE 100 73 - 393 UNITS/L 11/12/2019 2:03 AM CDT [facility] 11/12/2019 1:28 AM CDT Kvng Lewis MD LABORATORY Final Re sult [facility] [address] [place] [address], * (ABNORMAL) COMPREHENSIVE METABOLIC PANEL (11/12/2019 1:28 AM CDT) GLUCOSE 109(H) 70 - 99 MG/DL 11/12/2019 2:03 AM CDT [facility] BUN 20(H) 7 - 18 MG/DL 11/12/2019 2:03 AM CDT [facility] CREATININE S/P/B 1.23(H) 0.55 - 1.02 MG/DL 11/12/2019 2:03 AM CDT [facility] SODIUM S/P/B 137 136 - 145 MMOL/L 11/12/2019 2:03 AM CDT [facility] POTASSIUM S/P/B 3.9 3.5 - 5.1 MMOL/L 11/12/2019 2:03 AM CDT [facility] CHLORIDE S/P/B 103 100 - 108 MMOL/L 11/12/2019 2:03 AM CDT [facility] CO2 28.5 21 - 32 MMOL/L 11/12/2019 2:03 AM CDT [facility] CALCIUM S/P/B 9.3 8.5 - 10.1 MG/DL 11/12/2019 2:03 AM CDT [facility] BILIRUBIN TOTAL S/P/B 0.4 0.2 - 1.2 MG/DL 11/12/2019 2:03 AM [facility] Comment: THIS ASSAY IS NOT RECOMMENDED FOR PATIENTS UNDERGOING TREATMENT WITH ELTROMBOPAG DUE TO THE POTENTIAL FOR FALSELY ELEVATED RESULTS. TOTAL PROTEIN S/P/B 7.9 6.4 - 8.2 G/DL 11/12/2019 2:03 AM [facility] ALBUMIN S/P/B 3.6 3.4 - 5.0 G/DL 11/12/2019 2:03 AM T [facility] AST 23 15 - 37 U/L 11/12/2019 2:03 AM [facility] ALT 38 14 - 55 U/L 11/12/2019 2:03 AM [facility] ALKALINE PHOSPHATASE S/P/B 133 50 - 136 U/L 11/12/2019 2:03 AM [facility] ANION GAP 5.5 5 - 15 MMOL/L 11/12/2019 2:03 AM T [facility] BUN CREATININE RATIO 16.3 6 - 26 11/12/2019 2:03 AM [facility] A/G RATIO 0.8(L) 1.0 - 2.0 RATIO 11/12/2019 2:03 AM [facility] EGFR NON-AFR. AMER. 52(L) >90 ML/MIN/1.7 3 M2 11/12/2019 2:03 AM T [facility] EGFR AFR. AMER. 60(L) >90 ML/MIN/1.7 3 M2 11/12/2019 2:03 AM [facility] Comment: NOTE: eGFR is not calculated for patients <18 years of age. This is an estimated GFR (CKD EPI) and should not be used for calculating drug doses. 11/12/2019 1:28 AM CDT Kvng Lewis MD LABORATORY Final Re sult [facility] [address] [place] [address], * (ABNORMAL) CBC W/DIFF AUTOMATED (11/12/2019 1:28 AM CDT) WBC 13.1(H) 4.5 - 11.0 x10'3/uL 11/12/2019 1:40 AM CDT [facility] RBC 3.95(L) 4.20 - 5.40 x10'6/uL 11/12/2019 1:40 AM CDT [facility] HGB 12.0 12.0 - 16.0 G/DL 11/12/2019 1:40 AM CDT [facility] HCT 36.1(L) 38.0 - 48.0 % 11/12/2019 1:40 AM CDT [facility] MCV 91.4 80.0 - 94.0 FL 11/12/2019 1:40 AM CDT [facility] MCH 30.4 27.0 - 31.0 PG 11/12/2019 1:40 AM CDT [facility] MCHC 33.2 32.0 - 36.0 G/DL 11/12/2019 1:40 AM CDT [facility] RDW 12.7 11.5 - 14.5 % 11/12/2019 1:40 AM CDT [facility] PLT 281 130 - 400 x10'3/uL 11/12/2019 1:40 AM CDT [facility] MPV 11.3 9.3 - 12.2 FL 11/12/2019 1:40 AM CDT [facility] DIFFERENTIAL TYPE AUTOMATED DIFFERENTIAL 11/12/2019 1:40 AM CDT [facility] NEUTROPHILS % 79.5 % 11/12/2019 1:40 AM CDT [facility] LYMPHOCYTES % 15.0 % 11/12/2019 1:40 AM CDT [facility] MONOCYTES % 3.3 % 11/12/2019 1:40 AM CDT [facility] EOSINOPHILS 1.4 % 11/12/2019 1:40 AM CDT [facility] BASOPHILS 0.4 % 11/12/2019 1:40 AM CDT [facility] IMMATURE GRANS % 0.4 % 11/12/19 20 1:40 AM CDT [facility] ABS. NEUTROPHILS TOTAL 10.42(H) 1.80 - 7.70 x10'3/uL 11/12/2019 1:40 AM CDT [facility] ABS. LYMPHOCYTES 1.97 1.00 - 4.80 x10'3/uL 11/12/2019 1:40 AM CDT [facility] ABS. MONOCYTES 0.43 0.24 - 0.86 x10'3/uL 11/12/2019 1:40 AM CDT [facility] ABS. EOSINOPHILS 0.18 0.04 - 0.36 x10'3/uL 11/12/2019 1:40 AM CDT [facility] ABS. BASOPHILS 0.05 0.01 - 0.08 x10'3/uL 11/12/2019 1:40 AM CDT [facility] ABS. IMMATURE GRANULOCYTES 0.05 0.00 - 0.49 x10'3/uL 11/12/2019 1:40 AM CDT [facility] 11/12/2019 1:28 AM CDT us Kvng Lewis MD LABORATORY Final Re sult [facility] [address] [place] [address], [place] [phone] documented in this encounter Visit Diagnoses Diagnosis UPJ obstruction, acquired- Primary Other ureteric obstruction documented in this encounter Administered Medications Inactive Administered Medications - up to 3 most recent administrations Medication Order MAR Action Action Date Dose Rate Site iopamidol (ISOVUE-370) 76 % injection 100 mL 100 mL, Intravenous, IMG once as needed, Contrast, 1 dose, Starting on Sun11/12/19 at 0335, Until Sun11/12/19 at 0335 Given 11/12/2019 3:35 AM CDT 100 mLs Left Arm morphine injection 4 mg 4 mg, Intravenous, Once, 1 dose, On Sun11/12/19 at 0030 Given 11/12/2019 1:34 AM CDT 4 mg morphine injection 4 mg 4 mg, Intravenous, Once, 1 dose, On Sun11/12/19 at 0415 Given 11/12/2019 4:10 AM CDT 4 mg ondansetron (ZOFRAN) injection 4 mg 4 mg, Intravenous, Once, 1 dose, On Sun11/12/19 at 0400, IV push over 2-5 minutes. Given 11/12/2019 3:53 AM CDT 4 mg documented in this encounter Active and Recently Administered Medications Times are shown in CDT. Scheduled Medication Order 11/10/2019 11/11/2019 11/12/2019 morphine injection 4 mg (COMPLETED) 4 mg, Intravenous, Once, 1 dose, On Sun11/12/19 at 0030 0134 (Given - Provid er: Erica Gan RN - Comment: no iv access) morphine injection 4 mg (COMPLETED) 4 mg, Intravenous, Once, 1 dose, On Sun11/12/19 at 0415 0410 (Given - Provid er: Erica Gan RN) ondansetron (ZOFRAN) injection 4 mg (COMPLETED) 4 mg, Intravenous, Once, 1 dose, On Sun11/12/19 at 0400, IV push over 2-5 minutes. 0353 (Given - Provid er: Erica Gan RN) PRN Medication Order 11/10/2019 11/11/2019 11/12/2019 iopamidol (ISOVUE-370) 76 % injection 100 mL (COMPLETED) 100 mL, Intravenous, IMG once as needed, Contrast, 1 dose, Starting on Sun11/12/19 at 0335, Until Sun11/12/19 at 033 0335 (Given - Provid er: Linda Hager, RTR) documented in this encounter Care Teams [employer]ist Relationship Specialty Start Date End Date Jarred Rod MD PCP - General FAMILY PRACTICE 07/21/15 09/30/20 documented as of this encounter
--- OUTSIDE RECORDS SUMMARY | 2024-03-02 22:31 | XMS_ITS | Encounter Summary ---
Author Organization [facility] Address [address] [place] [address]. [place], [place] [id number] [place] [id number] Care Team Providers Care Oral Surgery Assistant Name Role Phone Jarred Fernández MD Primary Care Provider Unav ailable Reason for Referral * Surgical (Routine) - Closed Specialty Diagnoses / Procedures Referred By Lyla chaney Referred To Contact Procedures Case request operating room: LAPAROSCOPY DIAGNOSTIC; Trachelectomy Kirit Harding MD [address] [place] [address] Phone: tel: fax: Referral ID Status Reason Start Date Expiration Date Visits Re quested Visits Authorized [id number] Closed 08/12/2019 09/10/2020 1 1 * Imaging (Emergency) - Closed Specialty Diagnoses / Procedures Referred By Lyla chaney Referred To Contact RADIOLOGY Procedures CT ABD+PEL W CON Christ Coombs MD [address] [place] [address] Phone: tel: fax: Referral ID Status Reason Start Date Expiration Date Visits Re quested Visits Authorized [id number] Closed 08/11/2019 09/09/2020 1 1 Reason for Visit * Reason Comments Abdominal Pain * Auth/Cert Specialty Diagnoses / Procedures Referred By Lyla t Referred To Contact Diagnoses Intractable abdominal pain Abdominal pain Referral ID Status Reason Start Date Expiration Date Visits Re quested Visits Authorized [id number] 1 1 Encounter Details Date Type Department Care Team (Late st Contact Info) Description 08/11/2019 8:56 PM CDT - 08/14/2019 5:54 PM CDT Emergency [facility] Med/Surg [address]rd [place] [address] Christ Coombs MD [address] [place] [address] Carline Bloom MD 1 [place] [address] [phone] (Work) [place] [address] [phone] (Work) Rosa Isela Lutz NP 1 [place], [place] [address] Erica Lomax NP [address] [place] [address] [phone] (Work) Abdominal Pain Discharge Disposition: Home or [...] Sign Reading Time Taken Comments Blood Pressure 128/70 08/14/2019 3:57 PM CDT Pulse 76 08/14/2019 3:57 PM CDT Temperature 37.1 ??C (98.8 ??F) 08/14/2019 3:57 PM CD T Respiratory Rate 18 08/14/2019 3:57 PM CDT Oxygen Saturation 98% 08/14/2019 3:57 PM CDT Inhaled Oxygen Concentration - - [...] dressing or bathing? Yes 08/12/2019 3:00 AM Shelby Blake RN Active Because of a physical, mental, [...] or making decisions? No 08/12/2019 3:00 AM Shelby Blake RN Active * Because of a physical, mental, or emotional condition, do you have serious difficulty concentrating, remembering, or making decisions? Answer Entry Date Author Status No 08/12/2019 3:00 AM Shelby Blake R N Active documented in this encounter Discharge Summaries * Erica Lomax NP - 08/14/2019 2:04 PM CDT Hospitalist Discharge Summary Patient ID: Lena Yougnblood. female. 1970. Admit date: 08/11/2019 8:56 PM [...] 114/65 117/67 Pulse: 85 77 76 Resp: 18 Temp: 98.4 ??F (36.9 ??C) 98.5 ??F [...] used for this procedure, which may include, butis not limited to, dose reduction technique, automated [...] monitor for toxicity Bowel regimen for constipation PRODUCT TECHNICIAN consult, appreciate recommendations s/p laparoscopy per BRICK VENEER MAKER with lysis of adhesions Discharge home to self care, follow up with PCP and BRICK V[employer]ER [facility]KER in 2 weeks ?? Constipation: Titrate bowel regimen Now having BMs HTN Holding hydrochlorothiazide Continue lisinopril and metoprolol Monitor and adjust as clinically warranted Now restarted home regimen ?? T2DM Maintained on trulicity, hold for now Accu-Cheks and sliding scale insulin for tight glycemic control ?? Dyslipidemia Continue statin ?? Hyponatremia Mild Resolved Disposition: home to self care Follow up: PCP, [facility]KER Time Spent on Discharge 35 minutes Signed: [...] bisacodyl, HYDROcodone-acetaminophen, HYDROcodone- acetaminophen, HYDROmorphone, magnesium hydroxide, iejekflqq-wvzppxei-vkmnnlwnoqb, morphine, naLOXone, ondansetron, ondansetron, simethicone OBJECTIVE Vital [...] normally then can be discharged from a BRICK VENEER MAKER standpoint. Recommend follow up in 2 weeks. [...] of breath. Plans for surgery today with BRICK VENEER MAKER, NPO. Objective Blood pressure 139/81, pulse 75, [...] 193* CA 9.4 8.3* Recent Labs Lab 08/11/19212808/13/19 0420 WBC 11.9* 9.8 RBC 4.07* 3.61* [...] monitor for toxicity Bowel regimen for constipation PRODUCT TECHNICIAN consult, appreciate recommendations Plans for laparoscopy today per BRICK V[employer]ER MAKER Constipation: Titrate bowel regimen Now having BMs [...] Discharge Planning Goal: Knowledge of discharge instructions 08/12/2019 182 by Sandy Bell RN Outcome: Not Progressing 08/12/2019 1808 by Sandy Bell RN Outcome: Progressing Problem: Constipation Goal: Bowel elimination within specified parameters 08/12/2019 1825 by Sandy Bell RN Outcome: Progressing Note: Pt just had medium sized BM 08/12/2019 1808 by Sandy Bell RN Outcome: Not Progressing [...] Bray - 08/12/2019 5:16 PM CDT 08/12/19 8040 Clinical Encounter Type Visited With Patient;Spouse/significant other Total number in room 3 Routine Visit Initial visit;Assessment Plan of Care Care Plan Initiated Yes;Patient;Spouse/Significant other Spiritual care goals begin/continue to experience spiritual support in manner that is comfortable for them Spiritual Care interventions Spiritual care plan interventions Affirmed patient's attitude/actions in choosing life;Offered a listening/supportive presence for patient/family;Provide prayer/ritual/sacraments * uLis A Chicas RN - 08/12/2019 3:09 PM CDT 08/12/19 1506 Referral Data Referral Reason Discharge Planning Source of Information Patient;Other (Comment) (ATTENDING, SUSAN LUTZ) Patient Information Primary Caregiver Self Support [...] BED WITH , CALI, AT BEDSIDE UPON NCM ARRIVAL. LIVING SITUATION: A & O, no communication issues. States she lives in [place] with her , Cali and her 26 [...] here whenever needed. PCP: Jarred Fernández PHARMACY: [facility], denies financial concerns obtaining medications/supplies. INSURANCE: [facility] DCP: Plans to return home at discharge, her , Cali will be her ride home and her and daugther will be home to provide assistance as needed. NEEDS: Denies discharge concerns at this time. BRICK VENEER MAKER consulted, she is waiting to see if they are rescheduling her board certified family physician surgery from 09/18 to a sooner date. [...] monitor for toxicity Bowel regimen for constipation PRODUCT TECHNICIAN consult, appreciate recommendations Constipation: Titrate bowel regimen [...] contact staff prior to exiting bed. Wearing yellowslip-human resource manager socks. Problem: Daily Care Goal: Daily care [...] in this encounter H&P Notes * Mikayla Perez, - 08/13/2019 12:32 PM CDT Lena Youngblood [...] Robotic-assisted Laparoscopic Sacrcocolpopexy with Dr. Hair in [place] in 2019. She states issues with BMs [...] Oral Daily ??? clindamycin 600 mg Intravenous Pricing Strategist to OR ??? docusate sodium 100 mg Oral BID ??? gentamicin 120 mg Intravenous Pricing Strategist to OR ??? heparin (porcine) 5,000 Units [...] file Gets together: Not on file Attends buddhist service: Not on file Active member of [...] every 7 days. INJECT ON SUNDAY 0 No current facility-administered medications on file prior [...] every 7 days. INJECT ON SUNDAY 0 Past Medical History Past Medical History: Diagnosis [...] file Gets together: Not on file Attends buddhist service: Not on file Active member of [...] No results for input(s): PH, PCO2, PO2, [id number], BICARBWB, BASEDEFICIT, BASEEXCESS in the [id number] hours. Imagining & Other Studies Ct Abd+pel [...] pain control, antiemetics Bowel regimen for constipation PRODUCT TECHNICIAN consult Hypertension: Holding hydrochlorothiazide Continue lisinopril and metoprolol and follow blood pressure reading IDDM: Accu-Cheks and insulin protocol Dyslipidemia: Continue statin Carline Bloom MD 08/12/2019 3:17 AM documented in this encounter Consult Notes * Kirit Harding MD - 08/12/2019 12:16 PM CDTAssociated Order(s): IP CONSULT TO DIRECTORY ASSISTANCE OPERATOR Gynecology Consult Note CC: RLQ pain HPI: [...] to admission her last BM was 08/06. PRODUCT TECHNICIAN History: OB History No data available Past [...] 140/82 137/81 Pulse: 96 88 89 Resp: Temp: 97.2 ??F (36.2 ??C) 97.9 ??F [...] COLOR (U) LIGHT YELLOW TRANSPARENCY CLEAR Specific Grenola (U) 1.024 1.001 - 1.030 U PH [...] stump in 05/2018 by a urogynecologist in [place] now with chronic constipation and RLQ pain, [...] Perez DO - 08/14/2019 5:54 PM CDT [facility] Op Note ?? Lena Youngblood Inpatient: 08/11/2019 - 08/13/2019 Procedure date: 08/13/2019 1230 ?? Pre-Op Diagnosis: PELVIC PAIN ?? Post-Op Diagnosis: 1. Pelvic Pain 2. Pelvic Adhesions 3. Cervical stump prolapse 4. Right paratubal cyst (right fallopian tube) ?? Procedure(s) (LRB): DIAGNOSTIC LAPAROSCOPY, LYSIS OF ADHESIONS, RIGHT SALPINGECTOMY (N/A) TRACHELECTOMY (N/A) CYSTOSCOPY Surgeon(s): Mikayla Perez DO ?? Learning Administrator: Spray Painting Machine Operator: RENAE Oropeza ?? Anesthesia: General ?? Findings: Adhesions of [...] Perez DO - 08/13/2019 4:00 PM CDT [facility] Brief Op Note Lena Youngblood Inpatient: 08/11/2019 - 08/13/2019 Procedure date: 08/13/2019 1230 Pre-Op Diagnosis: PELVIC PAIN Post-Op Diagnosis: 1. Pelvic Pain 2. Pelvic Adhesions 3. Cervical stump prolapse 4. Right paratubal cyst (right fallopian tube) Procedure(s) (LRB): DIAGNOSTIC LAPAROSCOPY, LYSIS OF ADHESIONS, RIGHT SALPINGECTOMY (N/A) TRACHELECTOMY (N/A) CYSTOSCOPY Surgeon(s): Mikayla Perez DO Learning Administrator: Spray Painting Machine Operator: RENAE Oropeza Anesthesia: General Findings: Adhesions of [...] RIGHT PATHOLOGY Mikayla Perez, DO 08/13/2019 1534 MIKAYLA PEREZ, DO Date: 08/13/2019 Time: 4:01 PM documented [...] pain. This radiates into her rectum. According tothe patient, she is undergone multiple surgical procedures that have left her with rectal pain thatradiates to her vagina when she has a [...] radiation as described above. Severity is moderate. Ti me course constant since onset. Medical History ALLERGIES: [...] COLOR (U) LIGHT YELLOW TRANSPARENCY CLEAR Specific Gren[place] (U) 1.024 1.001 - 1.030 U PH [...] ABD+PEL W CON Final Result by User, [id number] (08/10 2246) EXAMINATION: CT Abdomen and Pelvis [...] st Contact Info) Description 03/14/2024 11:45 AM PITCH GATHERER Office Visit [facility] [phone] Marvin Mckeon MD [facility] [address] [place], [place] [id number] 03/20/2024 11:30 AM PITCH GATHERER Office Visit [facility] Medical Group Family [facility] - [place] [address] [place] [phone] Abiodun Segura II, MD [address] [place] [address] documented as of this encounter Procedures Procedure [...] - 99 mg/dL 08/14/2019 1:12 PM CDT [facility] LAB ORDERS INTERFACE 08/14/2019 1:09 PM [facility]T [facility] POCT ORDERABLES - DEVICE Fi nal Result Performing Organization Address [facility] de Phone Number [facility] LAB ORDERS INTERFACE US * (ABNORMAL) POCT glucose (08/14/2019 5:50 AM CDT) GLUCOSE POC 192(H) 70 - 99 mg/dL 08/14/2019 5:57 AM CDT [facility] LAB ORDERS INTERFACE 08/14/2019 5:50 AM CDT [facility] POCT ORDERABLES - DEVICE Fi nal Result Performing Organization Address [facility] Co de Phone Number [facility] LAB ORDERS INTERFACE US * (ABNORMAL) COMPREHENSIVE METABOLIC PANEL (08/14/2019 4:25 AM CDT) GLUCOSE 211(H) 70 - 99 MG/DL 08/14/2019 5:34 AM CDT [facility] BUN 15 7 - 18 MG/DL 08/14/2019 5:34 AM CDT [facility] CREATININE S/P/B 1.14(H) 0.55 - 1.02 MG/DL 08/14/2019 5:34 AM CDT [facility] SODIUM S/P/B 135(L) 136 - 145 MMOL/L 08/14/2019 5:34 AM CDT [facility] POTASSIUM S/P/B 4.3 3.5 - 5.1 MMOL/L 08/14/2019 5:34 AM CDT [facility] CHLORIDE S/P/B 106 100 - 108 MMOL/L 08/14/2019 5:34 AM CDT [facility] CO2 24.6 21 - 32 MMOL/L 08/14/2019 5:34 AM CDT [facility] CALCIUM S/P/B 7.7(L) 8.5 - 10.1 MG/DL 08/14/2019 5:34 AM CDT [facility] BILIRUBIN TOTAL S/P/B 0.5 0.2 - 1.2 MG/DL 08/14/2019 5:34 AM CDT [facility] Comment: THIS ASSAY IS NOT RECOMMENDED FOR PATIENTS UNDERGOING TREATMENT WITH ELTROMBOPAG DUE TO THE POTENTIAL FOR FALSELY ELEVATED RESULTS. TOTAL PROTEIN S/P/B 6.8 6.4 - 8.2 G/DL 08/14/2019 5:34 AM CDT [facility] ALBUMIN S/P/B 2.4(L) 3.4 - 5.0 G/DL 08/14/2019 5:34 AM CDT [facility] AST 13(L) 15 - 37 U/L 08/14/2019 5:34 AM CDT [facility] ALT 15 14 - 55 U/L 08/14/2019 5:34 AM T [facility] ALKALINE PHOSPHATASE S/P/B 87 50 - 136 U/L 08/14/2019 5:34 AM T [facility] ANION GAP 4.4(L) 5 - 15 MMOL/L 08/14/2019 5:34 AM CDT [facility] BUN CREATININE RATIO 13.2 6 - 26 08/14/2019 5:34 AM CDT [facility] A/G RATIO 0.5(L) 1.0 - 2.0 RATIO 08/14/2019 5:34 AM CDT [facility] EGFR NON-AFR. AMER. 57(L) >90 ML/MIN/1.7 3 M2 08/14/2019 5:34 AM CDT [facility] EGFR AFR. AMER. 66(L) >90 ML/MIN/1.7 3 M2 08/14/2019 5:34 AM CDT [facility] Comment: NOTE: eGFR is not calculated for patients <18 years of age. This is an estimated GFR (CKD EPI) and should not be used for calculating drug doses. 08/14/2019 4:25 AM CDT Rosa Isela Lutz NP LABORATORY Final Result [facility] [address] [place] [address], * (ABNORMAL) CBC W/DIFF AUTOMATED (08/14/2019 4:25 AM CDT) WBC 12.0(H) 4.5 - 11.0 x10'3/uL 08/14/2019 6:45 AM CDT [facility] RBC 3.19(L) 4.20 - 5.40 x10'6/uL 08/14/2019 6:45 AM CDT [facility] HGB 9.8(L) 12.0 - 16.0 G/DL 08/14/2019 6:45 AM CDT [facility] HCT 29.3(L) 38.0 - 48.0 % 08/14/2019 6:45 AM CDT [facility] MCV 91.8 80.0 - 94.0 FL 08/14/2019 6:45 AM CDT [facility] MCH 30.7 27.0 - 31.0 PG 08/14/2019 6:45 AM CDT [facility] MCHC 33.4 32.0 - 36.0 G/DL 08/14/2019 6:45 AM CDT [facility] RDW 12.6 11.5 - 14.5 % 08/14/2019 6:45 AM CDT [facility] PLT 258 130 - 400 x10'3/uL 08/14/2019 6:45 AM CDT [facility] MPV 11.5 9.3 - 12.2 FL 08/14/2019 6:45 AM CDT [facility] DIFFERENTIAL TYPE AUTOMATED DIFFERENTIAL 08/14/2019 6:45 AM CDT [facility] NEUTROPHILS % 80.9 % 08/14/2019 6:45 AM CDT [facility] LYMPHOCYTES % 13.9 % 08/14/2019 6:45 AM CDT [facility] MONOCYTES % 4.1 % 08/14/2019 6:45 AM CDT [facility] EOSINOPHILS 0.5 % 08/14/2019 6:45 AM CDT [facility] BASOPHILS 0.2 % 08/14/2019 6:45 AM CDT [facility] IMMATURE GRANS % 0.4 % 08/14/19 20 6:45 AM CDT [facility] ABS. NEUTROPHILS TOTAL 9.68(H) 1.80 - 7.70 x10'3/uL 08/14/2019 6:45 AM CDT [facility] ABS. LYMPHOCYTES 1.66 1.00 - 4.80 x10'3/uL 08/14/2019 6:45 AM CDT [facility] ABS. MONOCYTES 0.49 0.24 - 0.86 x10'3/uL 08/14/2019 6:45 AM CDT [facility] ABS. EOSINOPHILS 0.06 0.04 - 0.36 x10'3/uL 08/14/2019 6:45 AM CDT [facility] ABS. BASOPHILS 0.02 0.01 - 0.08 x10'3/uL 08/14/2019 6:45 AM CDT [facility] ABS. IMMATURE GRANULOCYTES 0.05 0.00 - 0.49 x10'3/uL 08/14/2019 6:45 AM CDT [facility] 08/14/2019 4:25 AM CDT us Rosa Isela Lutz NP LABORATORY Final Result Performing Organization Address City/[facility]/ZIP Co de Phone Number [facility] [address] [place] [address], [place] [phone] * (ABNORMAL) POCT glucose (08/13/2019 11:15 PM CDT) GLUCOSE POC 142(H) 70 - 99 mg/dL 08/13/2019 11:17 PM CDT [facility] LAB ORDERS INTERFACE 08/13/2019 11:1 5 PM CDT us Rosa Isela Lutz NP POCT ORDERABLES - DEVICE Katheryn l Result [facility] LAB ORDERS INTERFACE US * (ABNORMAL) POCT glucose (08/13/2019 5:56 PM CDT) GLUCOSE POC 173(H) 70 - 99 mg/dL 08/13/2019 5:57 PM CDT [facility] LAB ORDERS INTERFACE 08/13/2019 5:56 PM CDT us Rosa Isela L Ltuz SKULL CHOPPER POCT ORDERABLES - DEVICE Katheryn l Result [facility] LAB ORDERS INTERFACE US * (ABNORMAL) POCT glucose (08/13/2019 4:05 PM CDT) GLUCOSE POC 181(H) 70 - 99 mg/dL 08/13/2019 4:26 PM CDT [facility] LAB ORDERS INTERFACE 08/13/2019 4:05 PM CDT Rosa Isela Rushing Bolivar SKULL CHOPPER POCT ORDERABLES - DEVICE Katheryn l Result Performing Organization Address City/[facility]/ZIP Co de Phone Number [facility] LAB ORDERS INTERFACE US * (ABNORMAL) POCT glucose (08/13/2019 1:25 PM CDT) GLUCOSE POC 122(H) 70 - 99 mg/dL 08/14/2019 8:38 AM CDT [facility] LAB ORDERS INTERFACE 08/13/2019 1:25 PM CDT Erica Stonernell SKULL CHOPPER POCT ORDERABLES - DEVICE Fi nal Result Performing Organization Address [facility] Co de Phone Number [facility] LAB ORDERS INTERFACE US * (ABNORMAL) POCT glucose (08/13/2019 12:13 PM CDT) GLUCOSE POC 178(H) 70 - 99 mg/dL 08/13/2019 12:17 PM CDT [facility] LAB ORDERS INTERFACE 08/13/2019 12:1 3 PM CDT Rosa Isela Rushing Bolivar SKULL CHOPPER POCT ORDERABLES - DEVICE Katheryn l Result Performing Organization Address City/[facility]/ZIP Co de Phone Number [facility] LAB ORDERS INTERFACE US * (ABNORMAL) POCT glucose (08/13/2019 11:16 AM CDT) GLUCOSE POC 187(H) 70 - 99 mg/dL 08/13/2019 11:21 AM CDT [facility] LAB ORDERS INTERFACE 08/13/2019 11:1 6 AM CDT Rosa Isela Lutz SKULL CHOPPER POCT ORDERABLES - DEVICE Katheryn l Result Performing Organization Address City/[facility]/ZIP Co de Phone Number [facility] LAB ORDERS INTERFACE US * (ABNORMAL) POCT glucose (08/13/2019 4:20 AM CDT) GLUCOSE POC 192(H) 70 - 99 mg/dL 08/13/2019 4:22 AM CDT [facility] LAB ORDERS INTERFACE 08/13/2019 4:20 AM CDT Rosa Isela Lutz SKULL CHOPPER POCT ORDERABLES - DEVICE Katheryn l Result Performing Organization Address [facility] de Phone Number [facility] LAB ORDERS INTERFACE US * (ABNORMAL) COMPREHENSIVE METABOLIC PANEL (08/13/2019 4:20 AM CDT) GLUCOSE 193(H) 70 - 99 MG/DL 08/13/2019 5:25 AM CDT [facility] BUN 16 7 - 18 MG/DL 08/13/2019 5:25 AM CDT [facility] CREATININE S/P/B 0.93 0.55 - 1.02 MG/DL 08/13/2019 5:25 AM CDT [facility] SODIUM S/P/B 137 136 - 145 MMOL/L 08/13/2019 5:25 AM CDT [facility] POTASSIUM S/P/B 4.2 3.5 - 5.1 MMOL/L 08/13/2019 5:25 AM CDT [facility] CHLORIDE S/P/B 106 100 - 108 MMOL/L 08/13/2019 5:25 AM CDT [facility] CO2 26.6 21 - 32 MMOL/L 08/13/2019 5:25 AM CDT [facility] CALCIUM S/P/B 8.3(L) 8.5 - 10.1 MG/DL 08/13/2019 5:25 AM CDT [facility] BILIRUBIN TOTAL S/P/B 0.3 0.2 - 1.2 MG/DL 08/13/2019 5:25 AM T [facility] Comment: THIS ASSAY IS NOT RECOMMENDED FOR PATIENTS UNDERGOING TREATMENT WITH ELTROMBOPAG DUE TO THE POTENTIAL FOR FALSELY ELEVATED RESULTS. TOTAL PROTEIN S/P/B 7.6 6.4 - 8.2 G/DL 08/13/2019 5:25 AM T [facility] ALBUMIN S/P/B 2.7(L) 3.4 - 5.0 G/DL 08/13/2019 5:25 AM CDT [facility] AST 15 15 - 37 U/L 08/13/2019 5:25 AM [facility] ALT 18 14 - 55 U/L 08/13/2019 5:25 AM T [facility] ALKALINE PHOSPHATASE S/P/B 109 50 - 136 U/L 08/13/2019 5:25 AM T [facility] ANION GAP 4.4(L) 5 - 15 MMOL/L 08/13/2019 5:25 AM [facility] BUN CREATININE RATIO 17.2 6 - 26 08/13/2019 5:25 AM [facility] A/G RATIO 0.6(L) 1.0 - 2.0 RATIO 08/13/2019 5:25 AM T [facility] EGFR NON-AFR. AMER. 73(L) >90 ML/MIN/1.7 3 M2 08/13/2019 5:25 AM T [facility] EGFR AFR. AMER. 84(L) >90 ML/MIN/1.7 3 M2 08/13/2019 5:25 AM [facility] Comment: NOTE: eGFR is not calculated for patients <18 years of age. This is an estimated GFR (CKD EPI) and should not be used for calculating drug doses. 08/13/2019 4:20 AM CDT Rosa Isela Lutz NP LABORATORY Final Result [facility] [address] [place] [address], [place] [phone] * (ABNORMAL) CBC W/DIFF AUTOMATED (08/13/2019 4:20 AM CDT) Pathologist [facility] WBC 9.8 4.5 - 11.0 x10'3/uL 08/13/2019 4:49 AM CDT [facility] RBC 3.61(L) 4.20 - 5.40 x10'6/uL 08/13/2019 4:49 AM CDT [facility] HGB 11.0(L) 12.0 - 16.0 G/DL 08/13/2019 4:49 AM CDT [facility] HCT 32.8(L) 38.0 - 48.0 % 08/13/2019 4:49 AM CDT [facility] MCV 90.9 81.0 - 99.0 FL 08/13/2019 4:49 AM CDT [facility] MCH 30.5 27.0 - 31.0 PG 08/13/2019 4:49 AM CDT [facility] MCHC 33.5 32.0 - 36.0 G/DL 08/13/2019 4:49 AM CDT [facility] RDW 12.4 11.5 - 14.5 % 08/13/2019 4:49 AM CDT [facility] PLT 267 130 - 400 x10'3/uL 08/13/2019 4:49 AM CDT [facility] MPV 11.2 9.3 - 12.2 FL 08/13/2019 4:49 AM CDT [facility] DIFFERENTIAL TYPE AUTOMATED DIFFERENTIAL 08/13/2019 4:49 AM CDT [facility] NEUTROPHILS % 58.6 % 08/13/2019 4:49 AM CDT [facility] LYMPHOCYTES % 34.4 % 08/13/2019 4:49 AM CDT [facility] MONOCYTES % 5.1 % 08/13/2019 4:49 AM CDT [facility] EOSINOPHILS 1.1 % 08/13/2019 4:49 AM CDT [facility] BASOPHILS 0.5 % 08/13/2019 4:49 AM CDT [facility] IMMATURE GRANS % 0.3 % 08/13/19 4:49 AM CDT [facility] ABS. NEUTROPHILS TOTAL 5.72 1.80 - 7.70 x10'3/uL 08/13/2019 4:49 AM CDT [facility] ABS. LYMPHOCYTES 3.36 1.00 - 4.80 x10'3/uL 08/13/2019 4:49 AM CDT [facility] ABS. MONOCYTES 0.50 0.24 - 0.86 x10'3/uL 08/13/2019 4:49 AM CDT [facility] ABS. EOSINOPHILS 0.11 0.04 - 0.36 x10'3/uL 08/13/2019 4:49 AM CDT [facility] ABS. BASOPHILS 0.05 0.01 - 0.08 x10'3/uL 08/13/2019 4:49 AM T [facility] ABS. IMMATURE GRANULOCYTES 0.03 0.00 - 0.49 x10'3/uL 08/13/2019 4:49 AM T [facility] 08/13/2019 4:20 AM CDT us Rosa Isela Lutz SKULL CHOPPER LABORATORY Final Result [facility] [address] [facility] [place] [address], * Pathology (08/13/2019 12:00 AM CDT) COPATH REPORT ? [facility] ? [address] ? [place] ??[address] ? [id number] ? Department of Pathology ? Pathology Report ? SURGICAL FINAL REPORT Patient Name: LENA YOUNGBLOOD ? : 1970 (Age: 49) ? Location: [id number] Gender: F ?Collected Date: 08/13/2019 Med Rec #: [id number] ?Date Received: 08/14/2019 Date Reported: 08/15/2019 Provider: MIKAYLA PEREZ DO ?CARLINE BLOOM MD ?SORAYA SANZ MD ?ROSA ISELA LUTZ SKULL CHOPPER ?ERICA MONIE AGAP ?JARRED FERNÁNDEZ MD Specimen(s) A: Cervix B: Fallopian tube tissue, right Final Pathologic Diagnosis A. CERVIX; TRACHELECTOMY: -CERVIX WITH MILD HYPERKERATOSIS, DILATED NABOTHIAN CYSTS, AND FOCAL ACUTE INFLAMMATION -NEGATIVE FOR DYSPLASIA AND MALIGNANCY B. FALLOPIAN TUBE, RIGHT; SALPINGECTOMY: -FALLOPIAN TUBE WITH NO SIGNIFICANT HISTOPATHOLOGIC ABNORMALITIES Electronically Signed Out ? BESSIE LANDIN MD Pathologist [facility] Microscopic Description: Microscopic examination is performed and the findings support the final diagnosis. Clinical History Pelvic pain Gross Description The specimens are received in two formalin-filled containers, both of which are labeled (Fredis, Lena) and with the patient's date of . [...] erosion is designated to be 3:00 position. Nocturnist sections from each quadrant are submitted in [...] serially sectioned to reveal a pinpoint lumen. Nocturnist sections of the right fallopian tube, to include the fimbriated end on the largest aspect, and the three separately submitted tissue fragments, are submitted in cassette B1 and B2. [facility] Billing Fee Code(s): 34620, 53834 [facility] Tissue specimen (specimen) CERVIX UTERI STRUCTURE / Unknown 08/13/2019 3:16 PM CDT us Mikayla Perez DO PATHOLOGY/CYTOLOGY ORDERABLES Final Result [facility] [address] [place] [address], [place] [phone] * (ABNORMAL) POCT glucose (08/12/2019 11:28 PM CDT) GLUCOSE POC 268(H) 70 - 99 mg/dL 08/12/2019 11:31 PM CDT [facility] ORDERS INTERFACE 08/12/2019 11:2 8 PM CDT Rosa Isela Lutz NP POCT ORDERABLES - DEVICE Katheryn l Result [facility] ORDERS INTERFACE US * (ABNORMAL) POCT glucose (08/12/2019 5:23 PM CDT) GLUCOSE POC 149(H) 70 - 99 mg/dL 08/12/2019 5:24 PM CDT [facility] ORDERS INTERFACE 08/12/2019 5:23 PM CDT Rosa Isela Lutz NP POCT ORDERABLES - DEVICE Katheryn l Result Performing Organization Address [facility] Co de Phone Number [facility] ORDERS INTERFACE US * (ABNORMAL) POCT glucose (08/12/2019 11:37 AM CDT) GLUCOSE POC 148(H) 70 - 99 mg/dL 08/12/2019 11:39 AM CDT [facility] ORDERS INTERFACE 08/12/2019 11:3 7 AM CDT Rosa Isela Lutz NP POCT ORDERABLES - DEVICE Katheryn l Result Performing Organization Address [facility] de Phone Number [facility] ORDERS INTERFACE US * (ABNORMAL) POCT glucose (08/12/2019 6:07 AM CDT) GLUCOSE POC 160(H) 70 - 99 mg/dL 08/12/2019 6:09 AM CDT [facility] ORDERS INTERFACE 08/12/2019 6:07 AM CDT us Soraya Sanz MD POCT ORDERABLES - DEVICE Final Result Performing Organization Address [facility] Co de Phone Number [facility] ORDERS INTERFACE US * (ABNORMAL) URINALYSIS, AUTO, COMPLETE (08/12/2019 1:00 AM CDT) SPECIMEN TYPE URINE CLEAN CATCH 08/12/2019 12:59 AM CDT [facility] COLOR (U) LIGHT YELLOW 08/12/2019 1:08 AM CDT [facility] TRANSPARENCY CLEAR 08/12/2019 1:08 AM CDT [facility] SPECIFIC GRAVITY (U) 1.024 1.001 - 1.030 08/12/2019 1:08 AM T [facility] U PH 5.5 5.0 - 9.0 08/12/2019 1:08 AM [facility] LEUKOCYTES (U) NEGATIVE NEGATIVE 08/12/2019 1:08 AM T [facility] NITRITES NEGATIVE NEGATIVE 08/12/2019 1:08 AM [facility] PROTEIN (U) 70(H) <30 MG/DL 08/12/2019 1:08 AM T [facility] URINE GLUCOSE 200(A) NORMAL MG/DL 08/12/2019 1:08 AM [facility] KETONES MG/DL (U) NEGATIVE NEGATIVE MG/DL 08/12/2019 1:08 AM [facility] UROBILINOGEN NORMAL NORMAL MG/DL 08/12/2019 1:08 AM [facility] BILIRUBIN (U) NEGATIVE NEGATIVE MG/DL 08/12/2019 1:08 AM [facility] BLOOD (U) NEGATIVE NEGATIVE 08/12/2019 1:08 AM [facility] CULTURE & SENSITIVITY INDICATED? CULTURE IS NOT INDICATED 08/12/2019 1:08 AM [facility] MUCUS RARE /LPF 08/12/2019 1:08 AM T [facility] WBC/HPF 1 <6 /HPF 08/12/2019 1:08 AM T [facility] RBC/HPF 1 <6 /HPF 08/12/2019 1:08 AM [facility] BACTERIA (U) RARE(A) NONE /HPF 08/12/2019 1:08 AM T [facility] SQUAMOUS EPITHELIALS RARE /HPF 08/12/2019 1:08 AM CDT [facility] URINE SPECIMEN OBTAINED BY CLEAN CATCH PROCEDURE / Unknown 08/12/2019 1:00 AM CDT Christ Coombs MD URINE ORDERABLES Final Result [facility] [address] [place] [address], * CT ABD+PEL W CON (08/11/2019 10:29 [...] SPEC DESCRIPTION BLOOD 08/11/19 10:34 PM CDT [facility] SPECIAL REQUESTS LAC 08/11/19 10:34 PM CDT [facility] CULTURE RESULT NO GROWTH 6 DAYS 08/17/2019 11:24 AM CDT [facility] BLOOD SPECIMEN OBTAINED FOR BLOOD CULTURE / Unknown 08/11/2019 10:27 PM CDT 08/11/2019 10:34 PM CDT us Christ Coombs MD MICROBIOLOGY - GENERAL ORDERABL ES Final Result [facility] [address] [place] [address], [place] [phone] * CULTURE, BACTERIA, BLOOD (08/11/2019 10:27 PM CDT) SPEC DESCRIPTION BLOOD 08/11/19 10:34 PM CDT [facility] SPECIAL REQUESTS HAND,RIGHT 08/11/19 10:34 PM CDT [facility] CULTURE RESULT NO GROWTH 6 DAYS 08/17/2019 11:24 AM CDT [facility] BLOOD SPECIMEN OBTAINED FOR BLOOD CULTURE / Unknown 08/11/2019 10:27 PM CDT 08/11/2019 10:34 PM CDT Christ Coombs MD MICROBIOLOGY - GENERAL ORDERABL ES Final Result Performing Organization Address City/[facility]/ZIP Co de Phone Number [facility] [address] [place] [address], * LACTIC ACID (08/11/2019 10:27 PM CDT) LACTIC ACID VENOUS 1.2 0.4 - 2.0 MMOL/L 08/11/2019 11:01 PM CDT [facility] 08/11/2019 10:2 7 PM CDT us Christ Coombs MD LABORATORY Final Result [facility] [address] [place] [address], [place] [phone] * (ABNORMAL) MAGNESIUM (08/11/2019 9:29 PM CDT) MAGNESIUM 1.6(L) 1.8 - 2.4 MG/DL 08/11/2019 10:46 PM CDT [facility] 08/11/2019 9:29 PM CDT us Christ Coombs MD LABORATORY Final Result Performing Organization Address City/[facility]/ZIP Co de Phone Number [facility] [address] [place] [address], [place] [phone] * LIPASE (08/11/2019 9:29 PM CDT) LIPASE 113 73 - 393 UNITS/L 08/11/2019 10:03 PM CDT [facility] 08/11/2019 9:29 PM CDT us Christ Coombs MD LABORATORY Final Result Performing Organization Address [facility] Co de Phone Number [facility] [address] [place] [address], [place] [phone] * (ABNORMAL) COMPREHENSIVE METABOLIC PANEL (08/11/2019 9:29 PM CDT) GLUCOSE 220(H) 70 - 99 MG/DL 08/11/2019 10:03 PM CDT [facility] BUN 20(H) 7 - 18 MG/DL 08/11/2019 10:03 PM CDT [facility] CREATININE S/P/B 1.09(H) 0.55 - 1.02 MG/DL 08/11/2019 10:03 PM CDT [facility] SODIUM S/P/B 134(L) 136 - 145 MMOL/L 08/11/2019 10:03 PM CDT [facility] POTASSIUM S/P/B 3.7 3.5 - 5.1 MMOL/L 08/11/2019 10:03 PM T [facility] CHLORIDE S/P/B 100 100 - 108 MMOL/L 08/11/2019 10:03 PM T [facility] CO2 30.2 21 - 32 MMOL/L 08/11/2019 10:03 PM T [facility] CALCIUM S/P/B 9.4 8.5 - 10.1 MG/DL 08/11/2019 10:03 PM T [facility] BILIRUBIN TOTAL S/P/B 0.4 0.2 - 1.2 MG/DL 08/11/2019 10:03 PM [facility] Comment: THIS ASSAY IS NOT RECOMMENDED FOR PATIENTS UNDERGOING TREATMENT WITH ELTROMBOPAG DUE TO THE POTENTIAL FOR FALSELY ELEVATED RESULTS. TOTAL PROTEIN S/P/B 9.4(H) 6.4 - 8.2 G/DL 08/11/2019 10:03 PM T [facility] ALBUMIN S/P/B 3.6 3.4 - 5.0 G/DL 08/11/2019 10:03 PM T [facility] AST 14(L) 15 - 37 U/L 08/11/2019 10:03 PM [facility] ALT 22 14 - 55 U/L 08/11/2019 10:03 PM T [facility] ALKALINE PHOSPHATASE S/P/B 127 50 - 136 U/L 08/11/2019 10:03 PM T [facility] ANION GAP 3.8(L) 5 - 15 MMOL/L 08/11/2019 10:03 PM T [facility] BUN CREATININE RATIO 18.3 6 - 26 08/11/2019 10:03 PM [facility] A/G RATIO 0.6(L) 1.0 - 2.0 RATIO 08/11/2019 10:03 PM CDT [facility] EGFR NON-AFR. AMER. 60(L) >90 ML/MIN/1.7 3 M2 08/11/2019 10:03 PM CDT [facility] EGFR AFR. AMER. 70(L) >90 ML/MIN/1.7 3 M2 08/11/2019 10:03 PM CDT [facility] Comment: NOTE: eGFR is not calculated for patients <18 years of age. This is an estimated GFR (CKD EPI) and should not be used for calculating drug doses. 08/11/2019 9:29 PM CDT Christ Coombs MD LABORATORY Final Result [facility] [address] [place] [address], * (ABNORMAL) CBC W/DIFF AUTOMATED (08/11/2019 9:29 PM CDT) WBC 11.9(H) 4.5 - 11.0 x10'3/uL 08/11/2019 9:40 PM CDT [facility] RBC 4.07(L) 4.20 - 5.40 x10'6/uL 08/11/2019 9:40 PM CDT [facility] HGB 12.5 12.0 - 16.0 G/DL 08/11/2019 9:40 PM CDT [facility] HCT 36.6(L) 38.0 - 48.0 % 08/11/2019 9:40 PM CDT [facility] MCV 89.9 80.0 - 94.0 FL 08/11/2019 9:40 PM CDT [facility] MCH 30.7 27.0 - 31.0 PG 08/11/2019 9:40 PM CDT [facility] MCHC 34.2 32.0 - 36.0 G/DL 08/11/2019 9:40 PM CDT [facility] RDW 12.4 11.5 - 14.5 % 08/11/2019 9:40 PM CDT [facility] PLT 288 130 - 400 x10'3/uL 08/11/2019 9:40 PM CDT [facility] MPV 10.9 9.3 - 12.2 FL 08/11/2019 9:40 PM CDT [facility] DIFFERENTIAL TYPE AUTOMATED DIFFERENTIAL 08/11/2019 9:40 PM CDT [facility] NEUTROPHILS % 66.9 % 08/11/2019 9:40 PM CDT [facility] LYMPHOCYTES % 27.5 % 08/11/2019 9:40 PM CDT [facility] MONOCYTES % 3.9 % 08/11/2019 9:40 PM CDT [facility] EOSINOPHILS 0.8 % 08/11/2019 9:40 PM CDT [facility] BASOPHILS 0.5 % 08/11/2019 9:40 PM CDT [facility] IMMATURE GRANS % 0.4 % 08/11/19 20 9:40 PM CDT [facility] ABS. NEUTROPHILS TOTAL 7.97(H) 1.80 - 7.70 x10'3/uL 08/11/2019 9:40 PM CDT [facility] ABS. LYMPHOCYTES 3.27 1.00 - 4.80 x10'3/uL 08/11/2019 9:40 PM CDT [facility] ABS. MONOCYTES 0.46 0.24 - 0.86 x10'3/uL 08/11/2019 9:40 PM CDT [facility] ABS. EOSINOPHILS 0.09 0.04 - 0.36 x10'3/uL 08/11/2019 9:40 PM CDT [facility] ABS. BASOPHILS 0.06 0.01 - 0.08 x10'3/uL 08/11/2019 9:40 PM CDT [facility] ABS. IMMATURE GRANULOCYTES 0.05 0.00 - 0.49 x10'3/uL 08/11/2019 9:40 PM CDT [facility] 08/11/2019 9:29 PM CDT Christ Coombs MD LABORATORY Final Result [facility] [address] [place] [address], [place] [phone] documented in this encounter Visit Diagnoses Diagnosis Intractable abdominal pain Abdominal pain, [...] Fever, Starting on Sun08/12/19 at 0410, Until Sun08/14/19 at 1957, Maximum dose of [...] Given 08/12/2019 10:01 AM CDT 20 mg docusate sodium (COLACE) capsule 100 mg [...] Sun08/14/19 at 0815, Administer IV push 20-40mg/min. Given [...] sources in 24 hours. Usulaay begin after WAIT STAFF stopped., Post-Op Given 08/14/2019 4:52 PM CDT [...] Continuous, Starting on Sun08/13/19 at 1215, Until Sun08/14/19 at 1957, Infuse at TKO rate, Pre-Op [...] on Sun08/13/19 at 1815, Until Discontinued, After WAIT STAFF stopped, may go to q 6 hours [...] Sun08/13/19 at 0431, Until Viky 08/14/19 at 1957 Given 08/13/2019 4:59 AM CDT [...] 1745, Until Viky 08/14/19 at 1957, Post-Op Given 08/14/2019 3:20 AM [...] Bag 08/13/2019 9:55 AM CDT 100 mL/hr documented in this encounter Active and [...] - Reason: NPO - Comment: surgery planned)1254 (APR Hold - Provider: User Epic - Reason: Unreviewed Transfer Orders)1559 (APR Unhold - Provider: User Epic) 0905 (Given - Provider: Tomeka Collins RN) atorvastatin (LIPITOR) tablet 20 mg 20 mg, Oral, Daily, First dose on Sun08/12/19 at 0900, Until Discontinued 1001 (Given - Provider: Sandy Bell RN) 0845 (Not Given - Provider: aSndy Bell RN - Reason: NPO)1254 (APR Hold - Provider: User Epic - Reason: Unreviewed Transfer Orders)1559 (APR Unhold - Provider: User Epic) 0905 (Given - Provider: Tomeka Collins, DEANDRE) bisacodyl EC (DULCOLAX) tablet 10 mg 10 mg, Oral, Once, 1 dose, On Sun08/14/19 at 1430, Do not break, chew, or crush. 1645 (Not Given - Provider: Tomeka Collins RN - Reason: Medication not available) clindamycin (CLEOCIN) 600 mg in sodium chloride 0.9 % 50 mL IVPB (COMPLETED) 600 mg, Intravenous, at 100 mL/hr, director call center sales to O.R., 1 dose, First dose on Sun08/13/19 at 1145 1254 (APR Hold - Provider: User Epic - Reason: Unreviewed Transfer Orders)1300 (New Bag - Provider: Mikayla Chandler CRNA)1559 (APR Unhold - Provider: User Epic) docusate sodium (COLACE) capsule 100 mg 100 mg, Oral, 2 times daily, First dose on Sun08/12/19 at 0900, Until Discontinued 1001 (Given - Provider: Sandy Bell RN)2047 (Given - Provider: Ashanti Amor RN) 0845 (Not Given - Provider: Sandy Bell RN - Reason: NPO)1254 (APR Hold - Provider: User Epic - Reason: Unreviewed Transfer Orders)155 (APR Unhold - Provider: User Epic)2046 (Given - Provider: Ashanti Amor RN) 0905 (Given - Provider: Tomeka Collins, DEANDRE) fentaNYL (SUBLIMAZE) injection 50 mcg (COMPLETED) 50 mcg, Intravenous, Once, 1 dose, On Sun08/12/19 at 0200, If intravenous (IV) route has been ordered, give over 1-2 minutes. 0149 (Given - Provider: Joel Morton RN) furosemide (LASIX) injection 10 mg (COMPLETED) 10 mg, Intravenous, Once, 1 dose, On Sun08/14/19 at 0815, Administer IV push 20-40mg/min. 0906 (Given - Provid er: Tomeka Collins RN) gentamicin (GARAMYCIN) 120 mg in sodium chloride 0.9 % 100 mL IVPB (COMPLETED) 120 mg, Intravenous, at 100 mL/hr, director call center sales to O.R., 1 dose, First dose on Sun08/13/19 at 1145 1254 (APR Hold - Provider: User Epic - Reason: Unreviewed Transfer Orders)1300 (New Bag - Provider: Mikayla Chandler CRNA)155 (APR Unhold - Provider: User Epic) heparin [...] Amor RN) 0906 (Given - Provider: Tomeka Collins, DEANDRE) insulin lispro (HUMALOG) injection 0-14 Units 0-14 [...] Bell RN)1731 (Given - Provider: Sandy Bell RN)2328 (Not Given - Provider: Ashanti Amor RN - Reason: NPO) 0522 (Not Given - Provider: Ashanti Amor RN - Reason: NPO)1129 (Not Given - Provider: Sandy Bell RN - Reason: NPO)1254 (APR Hold - Provider: User Epic - Reason: Unreviewed Transfer Orders)1559 (APR Unhold - Provider: User Epic)1831 (Given - Provider: Sandy Bell RN)2320 (Not Given - Provider: Ashanti Amor RN - Reason: Patient/family declined) 0628 (Given - Provider: Ashanti Amor, DEANDRE)1323 (Given - Provider: Tomeka Collins, DEANDRE)1800 (Canceled [...] User Epic - Reason: Unreviewed Transfer Orders)155 (APR Unhold - Provider: User Epic)2046 (Given - Provider: Ashanti Amor RN) metoclopramide (REGLAN) injection 10 mg 10 mg, Intravenous, Every 8 hours, First dose on Sun08/13/19 at 1815, Until Discontinued, After WAIT STAFF stopped, may go to q 6 hours PRN., Post-Op 1831 (Given - Provider: Sandy Bell RN) 0127 (Not Given - Provider: Ashanti Amor RN - Reason: Patient sleeping)1145 (Not Given - Provider: Tomeka Collins RN - Reason: Patient/family declined)181 (Canceled Entry - Provider: Automatic Discharge Provider - Comment: Automatically canceled at discontinue of medication order) metoprolol tartrate (LOPRESSOR) tablet 50 mg 50 mg, Oral, 2 times daily, First dose on Sun08/12/19 at 0900, Until Discontinued 112 (Given - Provider: Sandy Bell RN)2046 (Given - Provider: Ashanti Amor RN) 0838 (Given - Provider: Sandy Bell RN)1254 (APR Hold - Provider: User Epic - Reason: Unreviewed Transfer Orders)155 (APR Unhold - Provider: User Epic)2046 (Given - Provider: Ashanti Amor RN) 0905 (Given - Provider: Tomeka Collins RN) polyethylene glycol (GLYCOLAX) packet 1 packet 1 packet, Oral, 2 times daily, First dose on Sun08/12/19 at 0900, Until Discontinued, Dissolve powder in 240 mL water 1125 (Given - Provider: Sandy Bell RN)2045 (Not Given - Provider: Ashanti Amor RN - Reason: Patient/family declined) 0845 (Not Given - Provider: Sandy Bell RN - Reason: NPO)1254 (APR Hold - Provider: User Epic - Reason: Unreviewed Transfer Orders)1559 (APR Unhold - Provider: User Epic)2132 (Not Given - Provider: Ashanti Amor RN [...] Orders)1559 (APR Unhold - Provider: User Epic) senna-docusate (SENOKOT-S) 8.6-50 MG tablet 1 tablet 1 tablet, Oral, 2 times daily, First dose on Sun08/13/19 at 2100, Until Discontinued, Post-Op 2046 (Given - Provider: Ashanti Amor RN) 0905 (Given - Provider: Tomeka Collins RN) Continuous Medication Order 08/12/2019 08/13/2019 08/14/2019 [...] PACU 1749 (Not Given - Provider: Sandy Bell RN - Reason: Other) lactated ringers infusion at [...] DEANDRE)2326 (New Bag - Provider: Ashanti Amor, DEANDRE) 0955 (New Bag - Provider: Sandy Bell, DEANDRE)1254 ([facility] Hold - Provider: User Epic - Reason: Unreviewed Transfer Orders)1559 ([facility] Unhold - Provider: User Epic) 0113 (New Bag - Provider: Ashanti Amor, DEANDRE)1148 (New Bag - Provider: Tomeka Collins RN) PRN Medication Order 08/12/2019 08/13/2019 08/14/2019 acetaminophen (TYLENOL) tablet 650 mg 650 mg, Oral, Every 4 hours PRN, Mild pain (Scale 1 - 3), Headaches, Fever, Starting on Sun08/12/19 at 0410, Until Sun08/14/19 at 195, Maximum dose of acetaminophen is 4000 mg from all sources in 24 hours. 1254 ([facility] Hold - Provider: User Epic - Reason: Unreviewed Transfer Orders)1559 ([facility] Unhold - Provider: User Epic) bisacodyl (DULCOLAX) suppository 10 mg 10 mg, Rectal, Daily as needed, Constipation, Starting on Sun08/13/19 at 1745, Until Viky 08/14/19 at 1957, Post-Op BUpivacaine (PF) (MARCAINE) 0.5 % injection [...] interval., PACU 1645 (Given - Provider: Soraya Matos, DEANDRE) HYDROcodone-acetaminophen (NORCO) 10-325 MG tablet 1 tablet 1 tablet, Oral, Every 4 hours PRN, Severe pain (Scale 8 - 10), Starting on Sun08/13/19 at 1745, Until Viky 08/14/19 at 195, Maximum dose of acetaminophen is 4000 mg from all sources in 24 hours. Usulaay begin after WAIT STAFF stopped., Post-Op 09 (Given - Provider: Tomeka Collins RN)165 (Given - Provider: Benjamin Newell RN) HYDROcodone-acetaminophen (NORCO) 5-325 MG tablet 1 tablet 1 tablet, Oral, Every 4 hours PRN, Moderate pain (Scale 4 - 7), Starting on Sun08/13/19 at 1745, Until Viky 08/14/19 at 195, Maximum dose of acetaminophen is 4000 mg from all sources in 24 hours. Usually begin after WAIT STAFF stopped., Post-Op HYDROmorphone (DILAUDID) injection 0.5 mg 0.5 mg, Intravenous, Every 4 hours PRN, Severe pain (Scale 8 - 10), Starting on Sun08/13/19 at 1613, Until Viky 08/14/19 at 1957, Administer slowly over at least 2-3 minutes. 2248 (Given - Provider: Ashanti Amor, DEANDRE) 0433 (Given - Provider: Ashanti Amor RN) magnesium hydroxide (MILK OF MAGNESIA) 400 MG/5ML suspension 15 mL (CANCELED) 15 mL, Oral, Daily as needed, Constipation, Starting on Sun08/12/19 at 0410, Until Sun08/13/19 at 1616, Shake Well 1504 (Given - Provider: Sandy Bell RN) 1254 (APR Hold - Provider: User Epic - Reason: Unreviewed Transfer Orders)1559 ([facility] Unhold - Provider: User Epic) magnesium hydroxide (MILK OF MAGNESIA) 400 MG/5ML suspension 30 mL 30 mL, Oral, 2 times daily PRN, Constipation, Starting on Sun08/13/19 at 1745, Until Viky 08/14/19 at 195, Shake Well, Post-Op htickgabl-wflfvqdm-trafwh icone (MYLANTA MAXIMUM STRENGTH) 0214-8901-343 mg/30mL suspension 10 mL, Oral, Every 4 hours PRN, Indigestion, Heartburn, Starting on Sun08/13/19 at 1745, Until Viky 08/14/19 at 1956, Shake Well, Post-Op morphine injection 2 mg (CANCELED) 2 mg, Intravenous, Every 3 hours PRN, Severe pain (Scale 8 - 10), Starting on Sun08/12/19 at 0410, Until Sun08/13/19 at 1620 1125 (Given - Provider: Sandy Bell RN)1731 (Given - Provider: Sandy Bell RN)2326 (Given - Provider: Ashanti Amor RN) 1254 ([facility] Hold - Provider: User Epic - Reason: Unreviewed Transfer Orders)1559 ([facility] Unhold - Provider: User Epic) morphine injection 2 mg 2 mg, Intravenous, Every 3 hours PRN, Moderate pain (Scale 4 - 7), Starting on Sun08/13/19 at 1620, Until Sun08/14/19 at 1956 2045 (Given - Provider: Ashanti Amor, DEANDRE) naLOXone (NARCAN) injection 0.4 mg 0.4 mg, Intravenous, As needed, Opioid reversal, Starting on Sun08/13/19 at 1608, Until Viky 08/14/19 at 1956 ondansetron (ZOFRAN) injection 4 mg 4 mg, Intravenous, Every 8 hours PRN, Nausea, Vomiting, Starting on Sun08/13/19 at 1745, Until Viky 08/14/19 at 195, Discontinue IV Zofran once able to take PO, Post-Op ondansetron (ZOFRAN-ODT) disintegrating tablet 4 mg 4 mg, Oral, Every 8 hours PRN, Nausea, Vomiting, Starting on Sun08/13/19 at 0431, Until Viky 08/14/19 at 1957 0459 (Given - Provider: Ashanti Amor RN)1254 (APR Hold - Provider: User Epic - Reason: Unreviewed Transfer Orders)1559 (APR Unhold - Provider: User Epic) simethicone (MYLICON) [...] (COMPLETED) documented in this encounter Care Teams Oral Surgery Assistant Relationship Specialty Start Date End Date Jarred Fernández MD PCP - General FAMILY PRACTICE 07/21/15 09/30/20 documented as of this encounter
--- OUTSIDE RECORDS SUMMARY | 2024-03-02 22:31 | XMS_ITS | Encounter Summary ---
Author Organization [facility] Address [address] [place] [address]. [place] [address] [place] [address] Care Team Providers Care Felt Hat Pouncing Operator Hand Name Role Phone Jarred Rod MD Primary Care Provider Unav ailable Encounter Details Date Type Department Care Team (Late st Contact Info) Description 10/30/2019 Prep for Procedure [facility] Pre-Admission Testing [address] [place], [place] [id number] Edson Chappell MD [address] [place] [id number] Social History Tobacco Use Types Packs/Day [...] st Contact Info) Description 03/14/2024 11:45 AM COMBINATION MACHINE TENDER Office Visit [facility] [phone] Marvin Mckeon MD Three [facility] [address] [place] [address] 03/20/2024 11:30 AM COMBINATION MACHINE TENDER Office Visit [facility] - [place] [address] [place] [phone] Abiodun Segura II, MD [address] [place], [place] [phone] documented as of this encounter Results * PRE-SURGICAL/PRE-PROCEDURE CORONAVIRUS (COVID 19) (11/02/2019 9:38 AM CDT) CORONAVIRUS SARS COV 2 PCR (RESP) NOT DETECTED NOT DETECTED 11/03/2019 3:21 PM CDT [facility] Comment: A Not Detected (negative) test [...] providers and patients using the following websites: https://www.[employer]/home/Covid-19/HCP/NAAT/fact-sheet2 https://www.[employer]/home/Covid-19/Patients/NAAT/ fact-sheet2 This test has been authorized by the FDA under an Emergency Use Authorization (EUA) for use by authorized laboratories. Due to the current public health emergency, [facility] is receiving a high volume of samples [...] about COVID-19 can be found at the [facility] website: www.[employer]/Covid19. Test performed at [facility] [address] ??[phone] Director: JOE FORBES DO,MPH FIRST TEST NO 11/02/2019 12:57 PM CDT [facility] EMPLOYED IN HEALTHCARE NO 11/02/2019 12:57 PM CDT [facility] SYMPTOMATIC DEFINED BY CDC NO 11/02/2019 12:57 PM CDT [facility] DATE OF SYMPTOM ONSET UNKNOWN 11/02/2019 1:17 PM CDT [facility] HOSPITALIZATION STATUS NO 11/02/2019 12:57 PM CDT [facility] PATIENT IN ICU NO 11/02/2019 12:57 PM CDT [facility] RESIDENT OF [facility] NO 11/02/2019 12:57 PM CDT [facility] NOT 11/02/2019 12:57 PM CDT [facility] PATIENT'S RACE BLACK OR 11/02/2019 12:57 PM CDT [facility] ETHNICITY NONHISPANIC 11/02/2019 12:57 PM CDT [facility] SOURCE (QST) NASOPHARYNGEAL SWAB 11/02/2019 12:57 PM CDT [facility] NASOPHARYNGEAL SWAB / Unknown 11/02/2019 9:38 AM CDT us Edson Chappell MD MICROBIOLOGY - GENERAL OR DERABLES Final Result [facility] [address] [place] [address], [employer] [facility] [id number] [place] [address], documented in this encounter Visit Diagnoses Diagnosis Preop examination- Primary Preoperative examination, unspecified documented in this encounter Care Teams Felt Hat Pouncing Operator Hand Relationship Specialty Start Date End Date Jarred Rod MD PCP - General FAMILY PRACTICE 07/21/15 09/30/20 documented as of this encounter
--- OUTSIDE RECORDS SUMMARY | 2024-03-02 22:31 | XMS_ITS | Encounter Summary ---
Author Organization [facility] Address [address] [place] [address]. [place], [place] [address] [place] [address] Care Team Providers Care Hand Twister Name Role Phone Jarred Rod MD Primary Care Provider Unav ailable Shira Shi PA-C Primary Care Provider +1- [phone] Jarred Rod MD Primary Care Provider Unav ailable Colton SILVEIRA MD, Abiodun L Primary Care Provider Jarred Rod MD Primary Care Provider Unav ailable Reason for Visit * Reason Comments Procedure (SCAN) Encounter Details Date Type Department Care Team (Late st Contact Info) Description 07/17/2019 Scan [facility] INFO SRVCS Scanned, Documents [...] COVID-19? No / Unsure 01/24/2021 11:10 AM AIR POLLUTION ANALYST documented as of this encounter Functional [...] st Contact Info) Description 03/14/2024 11:45 AM AIR POLLUTION ANALYST Office Visit [facility] [phone] Marvin Mckeon MD Three [facility] [address] [place] [address] 03/20/2024 11:30 AM AIR POLLUTION ANALYST Office Visit [facility] Family Medicine - [place] [address] [place] [phone] Abiodun Segura II, MD [address] [place], [place] [phone] documented as of this encounter Procedures Procedure Name Priority Date/Time Associated Diagnosis Comments PROCEDURE GENERIC (SCAN ORDER) 07/17/2019 documented in this encounter Results * PROCEDURE GENERIC (07/17/2019) 07/17/2019 Narrative 07/17/2019 Ordered by an unspecified provider. us Documents [...] COVID-19 Confirmed 12/13/2019 12/13/2019 0 12:34 AM AIR POLLUTION ANALYST documented as of this encounter Care Teams Hand Twister Relationship Specialty Start Date End Date Jarred Rod MD PCP - General FAMILY PRACTICE 07/21/15 09/30/20 Shira Shi PA-C [address] [place] [phone] PCP - General PHYSICIAN CHIEF OF HAR[employer] PATROL 10/01/20 11/17/20 Jarred Rod MD [address] [place] [phone] PCP - General FAMILY PRACTICE 11/18/20 12/05/20 Abiodun Segura II, MD [address] [place] [id number] PCP - General FAMILY PRACTICE 12/06/20 01/16/21 Jarred Rod MD [address] [place] [phone] PCP - General FAMILY PRACTICE 01/17/21 03/08/21 documented as of this encounter
--- OUTSIDE RECORDS SUMMARY | 2024-03-02 22:32 | XMS_ITS | Encounter Summary ---
Author Organization [facility] Address [address] [place] [address]. [place], [place] [address] [place] [address] Care Team Providers Care Power Ballast Machine Operator Name Role Phone Jarred Rod MD Primary Care Provider Unav ailable Shira Shi PA-C Primary Care Provider +1- [phone] Jarred Rod MD Primary Care Provider Unav ailable Colton SILVEIRA MD, Abiodun L Primary Care Provider Jarred Rod MD Primary Care Provider Unav ailable Encounter Details Date Type Department Care Team (Latest Contact Info) Description 03/13/2019 Scan HEALTH INFO SRVCS Scanned, Documents Social [...] COVID-19? No / Unsure 01/24/2021 11:10 AM DISASTER RECOVERY MANAGER documented as of this encounter Functional [...] st Contact Info) Description 03/14/2024 11:45 AM DISASTER RECOVERY MANAGER Office Visit [facility] [phone] Marvin Mckeon MD Three [facility] [address] [place] [phone] 03/20/2024 11:30 AM DISASTER RECOVERY MANAGER Office Visit [facility] Family Medicine - [address] [phone] Abiodun Segura II, MD [address] [place] [phone] documented as of this encounter Visit Diagnoses Not on filedocumented in this encounter Additional Health Concerns Infection Onset Date Last Indicated Resolved Time COVID-19 Rule Out 09/22/2019 09/22/2019 09/24/2019 11:13 PM CDT COVID-19 Rule Out 11/02/2019 11/02/2019 11/03/2019 3:22 PM CDT COVID-19 Rule Out 12/13/2019 12/13/2019 12/14/2019 3:06 PM CDT COVID-19 Confirmed 12/13/2019 12/13/2019 0 12:34 AM DISASTER RECOVERY MANAGER documented as of this encounter Care Teams Power Ballast Machine Operator Relationship Specialty Start Date End Date Jarred Rod MD PCP - General FAMILY PRACTICE 07/21/15 09/30/20 Shira Shi, JESUSC [address] [place] [id number] PCP - General PHYSICIAN LAB ASST 10/01/20 11/17/20 Jarred Rod MD [address] [place] [phone] PCP - General FAMILY PRACTICE 11/18/20 12/05/20 Abiodun Segura II, MD [address] [place] [phone] PCP - General FAMILY PRACTICE 12/06/20 01/16/21 Jarred Rod MD [address] [place] [phone] PCP - General FAMILY PRACTICE 01/17/21 03/08/21 documented as of this encounter
--- OUTSIDE RECORDS SUMMARY | 2024-03-02 22:32 | XMS_ITS | Encounter Summary ---
Author Organization [facility] Address [address] [place] [address]. [place] [address] [place] [address] Care Team Providers Care Suction Worker Name Role Phone Jarred Rod MD Primary Care Provider Unav ailable Encounter Details Date Type Department Care Team (Late st Contact Info) Description 07/29/2017 9:12 PM CDT - 07/29/2017 10:00 PM CDT Emergency [facility] Emergency Room [place] [id number] Discharge Disposition: Left Against Medical Advice Social History Tobacco Use Types Packs/Day [...] AM CDT documented as of this encounter Medications at Time of Discharge HUMALOG MIX 75/25 (75-25) 100 UNIT/ML Suspension Take 55 units in AM and 50 units PM, this should be titrated depending on your blood sugar numbers. 1 vial 1 02/08/2017 2 hydrochlorothiaz shalini 25 MG tablet Take 25 mg by mouth nightly. 1 lisinopril 40 MG tablet Take 40 mg by mouth nightly. 11/03/2016 2 metoprolol tartrate 100 MG tablet Take 100 mg by mouth nightly. 12/28/2016 9 simvastatin 40 MG tablet Take 40 mg by mouth nightly at bedtime. 11/03/2016 2 vitamin B-12 100 MCG tablet Take 50 mcg by mouth daily. 0 documented as of this encounter Plan of Treatment Upcoming Encounters Date Type Department Care Team (Late st Contact Info) Description 03/14/2024 11:45 AM BARREL POLISHER Office Visit [facility]-[address] [phone] Marvin Mckeon MD Three [facility] [address] [place] [address] 03/20/2024 11:30 AM BARREL POLISHER Office Visit [facility] Family Medicine - [place] [address] [place] [phone] Abiodun Segura II, MD [address] [place], [place] [phone] documented as of this encounter Visit Diagnoses Not on filedocumented in this encounter Care Teams Suction Worker Relationship Specialty Start Date End Date Jarred Rod MD PCP - General FAMILY PRACTICE 07/21/15 09/30/20 documented as of this encounter
--- OUTSIDE RECORDS SUMMARY | 2024-03-02 22:32 | XMS_ITS | Encounter Summary ---
Author Organization [facility] Address [address] [place] [address]. [place], [place] [address] [place] [address] Care Team Providers Care Promotional Demonstrator Name Role Phone Jarred Rod MD Primary Care Provider Unav ailable Shira Shi PA-C Primary Care Provider +1- [phone] Jarred Rod MD Primary Care Provider Unav ailable Colton SILVEIRA MD, Abiodun L Primary Care Provider Jarred Rod MD Primary Care Provider Unav ailable Reason for Visit * Reason Comments Lab (SCAN) CT (SCAN) Image (SCAN) Encounter Details Date Type Department Care Team (Late Contact Info) Description 02/24/2018 Scan HEALTH INFO SRVCS Scanned, Documents Lab (SCAN); CT (SCAN); Image (SCAN) Social History Tobacco [...] COVID-19? No / Unsure 01/24/2021 11:10 AM MICROSOFT BI ARCHITECT documented as of this encounter Functional Status [...] st Contact Info) Description 03/14/2024 11:45 AM MICROSOFT BI ARCHITECT Office Visit [facility] [phone] [facility] [address] [place] [address] 03/20/2024 11:30 AM MICROSOFT BI ARCHITECT Office Visit [facility] Family Medicine - [place] [address] [place] [phone] Abiodun Segura II, MD [address] [place] [address] documented as of this encounter Procedures Procedure Name Priority Date/Time Associated Diagnosis Comments CT GENERIC 02/24/2018 OUTSIDE LAB (SCAN ORDER) 02/24/2018 IMAGE GENERIC 02/24/2018 documented in this encounter Results * OUTSIDE LAB (SCAN) (02/24/2018) 02/24/2018 Narrative 02/24/2018 Ordered by an unspecified provider. us Documents Scanned SCANNING Final Result * IMAGE GENERIC (02/24/2018) Anatomical Region Laterality Modality Other 02/24/2018 Narrative 02/24/2018 Ordered by an unspecified provider. us Documents Scanned SCANNING Final Result * CT GENERIC (02/24/2018) Anatomical Region Laterality Modality Other 02/24/2018 Narrative 02/24/2018 Ordered by an unspecified provider. us Documents [...] COVID-19 Confirmed 12/13/2019 12/13/2019 0 12:34 AM [employer]CROS[employer]FT BI ARCHITECT documented as of this encounter Care Teams Promotional Demonstrator Relationship Specialty Start Date End Date Jarred Rod MD PCP - General FAMILY PRACTICE 07/21/15 09/30/20 Shira Shi PA-C [address] [place] [phone] PCP - General PHYSICIAN VISUAL ARTIST 10/01/20 11/17/20 Jarred Rod MD [address] [place] [phone] PCP - General FAMILY PRACTICE 11/18/20 12/05/20 Abiodun Segura II, MD [address] [place] [phone] PCP - General FAMILY PRACTICE 12/06/20 01/16/21 Jarred Rod MD [address] [place], [place] [address], [place] [address] PCP - General FAMILY PRACTICE 01/17/21 03/08/21 documented as of this encounter
--- OUTSIDE RECORDS SUMMARY | 2024-03-02 22:32 | XMS_ITS | Encounter Summary ---
Author Organization [facility] Address [facility] [place] [address] [place] [address] Care Team Providers Care Ceramic Sprayer Name Role Phone Jarred Fernández MD Primary Care Provider Unav ailable Reason for Referral * Imaging (Emergency) - Closed Specialty Diagnoses / Procedures Referred By Lyla chaney Referred To Contact RADIOLOGY Procedures CT ABD+PEL WO CON Estella Jolley MD [address] [address] Phone: tel: fax: Referral ID Status Reason Start Date Expiration Date Visits Re quested Visits Authorized [id number] Closed 12/24/2018 01/24/2020 1 1 EMS TRAINER Reason for Visit * Reason Comments Burning With Urination Back Pain right side Abdominal Pain right side Vaginal Pain Encounter Details Date Type Department Care Team (Late st Contact Info) Description 12/24/2018 12:12 PM SYSTEMS TRAINER - 12/24/2018 4:53 PM SYSTEMS TRAINER Emergency [facility] [place] [address] Estella Jolley MD [address] [address] Burning With Urination; Back Pain (right side ); Abdominal Pain (right side); Vaginal Pain Discharge Disposition: Home or Self Care [...] Sign Reading Time Taken Comments Blood Pressure 165/98 12/24/2018 4:00 PM SYSTEMS TRAINER Pulse 85 12/24/2018 2:39 PM SYSTEMS TRAINER Temperature 36.9 ??C (98.4 ??F) 12/24/2018 12:[address] Respiratory Rate 18 12/24/2018 2:39 PM SYSTEMS TRAINER Oxygen Saturation 98% 12/24/2018 4:00 PM SYSTEMS TRAINER Inhaled Oxygen Concentration - - Weight 88.7 kg (195 lb 9.6 oz) 12/24/2018 12:08 PM SYSTEMS TRAINER Height 167.6 cm (5' 6 ) 12/24/2018 12:08 PM SYSTEMS TRAINER Body Mass Index 31.57 12/24/2018 12:08 PM SYSTEMS TRAINER documented in this encounter Discharge Instructions * Discharge Instructions* Estella Jolley MD - 12/24/2018 4:48 PM SYSTEMS TRAINER Check your blood pressure once a day and keep a log to take to your primary care doctor. Follow up with your urologist at [place] to discuss your flank pain. Return to ER for any new or worsening symptoms. EMS TRAINER EMS TRAINER * Attachments The following attachments cannot be sent through Care Everywhere. * Flank Pain Discharge Instructions ([place]ese) * High Blood Pressure Discharge Instructions ([place]) documented in this encounter Medications at Time of Discharge HUMALOG MIX 75/25 (75-25) 100 UNIT/ML Suspension Take 55 units in AM and 50 units PM, this should be titrated depending on your blood sugar numbers. 1 vial 1 02/08/2017 2 hydrochlorothiaz shalini 25 MG tablet Take 25 mg by mouth nightly. 1 lisinopril 20 MG tablet Take 20 mg by mouth daily. 06/27/2018 0 lisinopril 40 MG tablet Take 40 [...] days. INJECT ON SUNDAY 0 10/07/2018 1 vitamin B-12 100 MCG tablet Take 50 mcg by mouth daily. 0 documented as of this encounter ED Notes * Estella Jolley MD - 12/24/2018 1:20 PM CST [place], [place] EMERGENCY DEPARTMENT ENCOUNTER Chief Complaint Chief Complaint Patient presents with ??? Burning With Urination ??? Back Pain right side ??? Abdominal Pain right side ??? Vaginal Pain History of Present Illness Provider at Bedside Date/Time Event User Comments 12/24/18 1215 Provider at Bedside Assessing Patient KAYE PAPPAS 12/24/18 1307 Provider at Bedside Assessing Patient ESTELLA JOLLEY 12/24/18 1315 Provider at Bedside Assessing Patient JP QUINTANA History provided by: Patient pharmaceutical physician used: Ruth Lena Jennifer Mcneal is a 48-year-old female presents to ED for evaluation of right flank pain that began 1 week ago. The patient also reports pain in her lower back, bladder pressure, nausea, chills, and dysuria. Denies fever. The patient was recently treated for a UTI 3 weeks ago. She reports history of hypertension, diabetes, and renal disorder. She has had surgical procedures done on her kidneysand also reports history of kidney stones. Medical History ALLERGIES: Allergies Allergen Reactions ??? [...] mg by mouth nightly. Doc Abstract lisinopril 20 MG tablet Take 20 mg by mouth daily. 06/27/18 Doc Abstract lisinopril 40 MG tablet Take 40 mg by mouth nightly. 11/03/16 Doc Abstract metoprolol tartrate 50 MG tablet Take 50 mg by mouth 2 (two) times a day. 06/14/18 Doc Abstract simvastatin 40 MG tablet Take 40 mg by mouth nightly at bedtime. 11/03/16 Doc Abstract TRULICITY 1.5 MG/0.5ML Solution Pen-injector Inject 1.5 mg into the skin every 7 days. 10/07/18 Doc Abstract vitamin B-12 100 MCG tablet Take 50 mcg by mouth daily. Doc Abstract PAST MEDICAL HISTORY: Past Medical [...] No Review of Systems Review of Systems Eyes: Negative for pain. Endocrine: Negative for polyuria. Genitourinary: Positive for flank pain (Right). Skin: Negative for rash. Neurological: Negative for dizziness. Psychiatric/Behavioral: Negative for behavioral problems. See HPI for further details. All systems negative except as marked. Physical Exam Filed Vitals: 12/24/18 1208 12/24/18 1439 12/24/18 1500 12/24/18 1600 BP: (!) 198/115 (!) 190/109 (!) 172/108 (!) 165/98 Pulse: 96 85 Resp: 17 18 Temp: 98.4 ??F (36.9 ??C) TempSrc: Oral SpO2: 100% 98% 99% 98% Weight: 88.7 kg (195 lb 9.6 oz) Height: 5' 6 (1.676 m) Physical Exam Constitutional: She is oriented to person, place, and time. She appears well- developed and well-nourished. HENT: Head: Normocephalic and atraumatic. Mouth/Throat: Oropharynx is clear and moist. Eyes: Conjunctivae and EOM are normal. Neck: Neck supple. Cardiovascular: Normal rate and regular rhythm. Pulmonary/Chest: Effort normal and breath sounds normal. No stridor. Abdominal: Soft. Bowel sounds are normal. There is tenderness in the suprapubic area. Musculoskeletal: She exhibits no deformity. Neurological: She is alert and oriented to person, place, and time. Skin: Skin is warm and dry. Psychiatric: She has a normal mood and affect. Nursing note and vitals reviewed. Diagnostic Studies / Procedures ELECTROCARDIOGRAMS: No results found for this visit on 12/24/18. Interpreted by LABORATORY STUDIES: Results for orders placed or performed during the hospital encounter of 12/24/18 COMPREHENSIVE METABOLIC PANEL Result Value Ref Range GLUCOSE 274 (H) 70 - 99 MG/DL BUN 17 7 - 18 MG/DL CREATININE 1.12 (H) 0.55 - 1.02 MG/DL SODIUM 138 136 - 145 MMOL/L POTASSIUM 3.9 3.5 - 5.1 MMOL/L CHLORIDE 105 100 - 108 MMOL/L CO2 26.2 21 - 32 MMOL/L CALCIUM 8.9 8.5 - 10.1 MG/DL TOTAL BILIRUBIN 0.3 0.2 - 1.2 MG/DL TOTAL PROTEIN 8.1 6.4 - 8.2 G/DL ALBUMIN 3.2 (L) 3.4 - 5.0 G/DL AST 15 15 - 37 U/L ALT 21 14 - 55 U/L ALK PHOS 135 50 - 136 U/L ANION GAP 6.8 5 - 15 MMOL/L BUN CREATININE RATIO 15.2 6 - 26 A/G RATIO 0.7 (L) 1.0 - 2.0 RATIO eGFR Non-Afr. Amer. 58 (L) >90 ML/MIN/1.73 M2 eGFR Afr. Amer. 68 (L) >90 ML/MIN/1.73 M2 CBC W/DIFF AUTOMATED Result Value Ref Range WBC 10.2 4.5 - 11.0 x10'3/uL RBC 4.02 (L) 4.20 - 5.40 x10'6/uL HGB 12.1 12.0 - 16.0 G/DL HCT 36.1 (L) 38.0 - 48.0 % MCV 89.8 81.0 - 99.0 FL MCH 30.1 27.0 - 31.0 PG MCHC 33.5 32.0 - 36.0 G/DL RDW 13.0 11.5 - 14.5 % PLT 273 130 - 400 x10'3/uL MPV 11.4 9.3 - 12.2 FL DIFFERENTIAL TYPE AUTOMATED DIFFERENTIAL NEUTROPHILS 67.3 % LYMPHOCYTES 27.7 % MONOCYTES 3.3 % EOSINOPHILS 0.9 % BASOPHILS 0.5 % IMMATURE GRANS 0.3 % ABS. NEUTROPHILS TOTAL 6.84 1.80 - 7.70 x10'3/uL ABS. LYMPHOCYTES 2.82 1.00 - 4.80 x10'3/uL ABS. MONOCYTES 0.34 0.24 - 0.86 x10'3/uL ABS. EOSINOPHILS 0.09 0.04 - 0.36 x10'3/uL ABS. BASOPHILS 0.05 0.01 - 0.08 x10'3/uL ABS. IMMATURE GRANULOCYTES 0.03 0.00 - 0.49 x10'3/uL URINALYSIS Result Value Ref Range Specimen Type URINE CLEAN CATCH COLOR YELLOW TRANSPARENCY CLEAR Specific [place] (U) 1.014 1.001 - 1.030 U PH 5.0 5.0 - 9.0 LEUKOCYTE ESTERASE NEGATIVE NEGATIVE NITRITES NEGATIVE NEGATIVE PROTEIN, URINE 100 (H) <30 MG/DL URINE GLUCOSE 150 (A) NEGATIVE MG/DL U KETONES NEGATIVE NEGATIVE MG/DL UROBILINOGEN NEGATIVE NEGATIVE MG/DL Urine Bilirubin NEGATIVE NEGATIVE MG/DL BLOOD NEGATIVE NEGATIVE CULTURE & SENSITIVITY INDICATED? CULTURE IS NOT INDICATED SQUAMOUS EPITHELIALS MANY /LPF MUCUS RARE /LPF WBC/HPF 2 <6 /HPF RBC/HPF 3 <6 /HPF BACTERIA (URINE) FEW (A) NONE /HPF IMAGING STUDIES CT ABD+PEL WO CON Final Result by User, [email or web address] (12/24 1228) EXAMINATION: CT Abdomen and Pelvis without contrast EXAM DATE/TIME: 12/24/2018 1:54 PM REASON FOR EXAM: Flank pain, stone disease suspected COMPARISON: 01/20/2016 TECHNIQUE: Computed tomography of the abdomen and pelvis was obtained without administration of intravenous contrast according to routine protocol. A dose lowering technique was used for this procedure, which may include, but is not limited to, dose reduction technique, automated exposure control, iterative reconstruction, ALARA (As Low As Reasonably Achievable), or Image Gently techniques. FINDINGS: CT ABDOMEN: Visualized portions of the lung bases are unremarkable. Small hiatal hernia. The liver is normal in size. No focal intrahepatic lesions are demonstrated. No evidence of cholelithiasis nor gallbladder wall thickening. Numerous calcified granulomata are noted in the spleen. Spleen is normal in size and otherwise unremarkable. Pancreas and the adrenal glands are unremarkable. Nonobstructing calcifications are present in both kidneys. There is significant abnormal dilatation of the proximal right renal collecting system. This is unchanged in comparison to the previous study and is associated with abnormal thinning and loss of parenchyma overlying dilated calyces. The appearance suggests chronic partial right UPJ obstruction. There is no left collecting system dilatation. There is no evidence of ureteral stone on either side. No perirenal inflammatory stranding or fluid. No definite evidence of renal mass lesion. There is no acute inflammatory change, abscess nor ascites. Normal appearance of the appendix. No evidence of mechanical bowel obstruction or perforation. No evidence of adenopathy. No evidence of AAA. The IVC is unremarkable. CT PELVIS: No evidence of pelvic mass nor adenopathy is demonstrated. No acute inflammatory change, abscess nor ascites. Calcified phleboliths are noted in the pelvis. =====IMPRESSION:===== 1. No acute inflammatory change, abscess nor ascites. Normal appearance of the appendix. 2. Chronic abnormal dilatation of the proximal right renal collecting system with cortical atrophy. 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 If indicated, correlation with radionuclide Lasix renogram would be recommended for further evaluation. 3. No evidence of mechanical bowel obstruction nor perforation. Course / Medical Decision Making ED Course as of Dec 25 1647e Dec 24, 2018 1457 BP elevated so will give pt her home dose of her usual BP meds. [BH] 1642 BP is improving after her home meds were given. Pt advised to f/u with her PMD to have BP rechecked and possibly meds adjusted. She was also advised to f/u with her urologist at [place] regarding flank pain. [BH] ED Course User Index [BH] Estella Jolley MD Diagnosis management comments: 48-year-old female presents with right flank pain. Pulse Ox Interpretation: Saturation:??100% Oxygen Delivery: RA. Interpretation: ??No acute hypoxia at this time. ?? Rhythm strip interpretation: Rhythm sinus rate 96. No arrhythmia noted. Data reviewed: All current, pertinent and timely studies (laboratory, imaging, and procedures) wereordered and results reviewed by Estella Jolley MD unless otherwise noted. Triage notes and available nursing notes reviewed. Previous medical record reviewed when available. Repeat vital signs reviewed. PCP: JARRED FERNÁNDEZ MD Progress notes: Medications ondansetron (ZOFRAN-ODT) disintegrating tablet 4 mg (4 mg Oral Given 12/24/18 143) ibuprofen (MOTRIN) tablet 800 mg (800 mg Oral Given 12/24/18 143) lisinopril (PRINIVIL,ZESTRIL) tablet 40 mg (40 mg Oral Given 12/24/18 151) metoprolol tartrate (LOPRESSOR) tablet 100 mg (100 mg Oral Given 12/24/181513) hydrochlorothiazide (HYDRODIURIL) tablet 25 mg (25 mg Oral Given 12/24/18 151) Clinical Impression Right flank pain (Primary) Poorly-controlled hypertension Current Discharge Medication List Disposition: Discharge Follow-Up: Jarred Fernández MD [address] [place] [id number] In 3 days Jp Goel, acting as a scribe, am personally taking down the notes in the presence ofEstella Jolley MD. Take no action on this note until reviewed and authenticated by the physician. Estella Jolley MD 12/24/18 1649 EMS TRAINER * Kaye Pappas NP - 12/24/2018 12:26 PM CST [place], [place] EMERGENCY DEPARTMENT ENCOUNTER Medical Screening Examination 12/24/18 12:26 PM Chief Complaint : Burning With Urination; Back Pain (right side ); Abdominal Pain (right side); andVaginal Pain HPI : Lena Mcneal is a 48-year-old female who presents with c/o urinary frequency, urgency, bladder pressure , R flank pain for 2 days. Had UTI 3 wks ago. States symptoms only kind of went away. Reports hx of problems with R kidney since . Denies N/v/D. Denies fever/chills. Vital Signs: Filed Vitals: 12/24/18 1208 BP: (!) 198/115 Pulse: 96 Resp: 17 Temp: 98.4 ??F (36.9 ??C) TempSrc: Oral SpO2: 100% Weight: 88.7 kg (195 lb 9.6 oz) Height: 5' 6 (1.676 m) Physical exam: A brief physical exam was completed to facilitate/expedite patient care. Plan: Necessary labs/imaging/medications ordered to initiate pt care. Kaye Pappas NP 12/24/18 1228 Cosigned by Edward Rene MD at 12/24/2018 1:43 PM SYSTEMS TRAINER EMS TRAINER EMS TRAINER * Leona Hawk RN - 12/24/2018 12:10 PM CST Pt to triage with complaint of burning with urination, vaginal pain, and right back flank pain thatradiates to the right front, pt has HX of kidney stones and UTI 3 weeks ago and treated with ABX, pt has chronic HX of Kidney issues. EMS TRAINER documented in this encounter Plan of Treatment Upcoming Encounters Date Type Department Care Team (Late st Contact Info) Description 03/14/2024 11:45 AM SYSTEMS TRAINER Office Visit [facility] [phone] Marvin Mckeon MD [facility] [address] [place] [address] 03/20/2024 11:30 AM SYSTEMS TRAINER Office Visit [facility] - [place] [address] [place] [phone] Abiodun Segura II, MD [address] [place], [place] [id number] documented as of this encounter Procedures Procedure Name Priority Date/Time Associated Diagnosis Comments CT ABD+PEL WO CON STAT 12/24/2018 1:5 7 PM SYSTEMS TRAINER URINALYSIS STAT 12/24/2018 12:54 PM SYSTEMS TRAINER COMPREHENSIVE METABOLIC PANEL STAT 12/24/2018 12:40 PM SYSTEMS TRAINER CBC W/DIFF AUTOMATED STAT 12/24/2018 12:40 PM SYSTEMS TRAINER documented in this encounter Results * CT ABD+PEL WO CON (12/24/2018 1:57 PM SYSTEMS TRAINER) Anatomical Region Laterality Modality Abdomen Computed Tomogra phy 12/24/2018 2:27 PM SYSTEMS TRAINER Impressions 12/24/2018 2:32 PM SYSTEMS TRAINER =====IMPRESSION:===== 1. No acute inflammatory change, abscess nor ascites. Normal appearance of the appendix. 2. Chronic abnormal dilatation of the proximal right renal collecting system with cortical atrophy. 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 If indicated, correlation with radionuclide Lasix renogram would be recommended for further evaluation. 3. No evidence of mechanical bowel obstruction nor perforation. Narrative 12/24/2018 2:32 PM SYSTEMS TRAINER EXAMINATION: CT Abdomen and Pelvis without contrast EXAM DATE/TIME: 12/24/2018 1:54 PM REASON FOR EXAM: ??Flank pain, stone disease suspected ? COMPARISON: 01/20/2016 TECHNIQUE: Computed tomography of the abdomen and pelvis was obtained without administration of intravenous contrast according to routine protocol. A dose lowering technique was used for this procedure, which may include, but is not limited to, dose reduction technique, automated exposure control, iterative reconstruction, ALARA (As Low As Reasonably Achievable), or Image Gently techniques. FINDINGS: CT ABDOMEN: Visualized portions of the lung bases are unremarkable. Small hiatal hernia. The liver is normal in size. No focal intrahepatic lesions are demonstrated. No evidence of cholelithiasis nor gallbladder wall thickening. Numerous calcified granulomata are noted in the spleen. Spleen is normal in size and otherwise unremarkable. Pancreas and the adrenal glands are unremarkable. Nonobstructing calcifications are present in both kidneys. There is significant abnormal dilatation of the proximal right renal collecting system. This is unchanged in comparison to the previous study and is associated with abnormal thinning and loss of parenchyma overlying dilated calyces. The appearance suggests chronic partial right UPJ obstruction. There is no left collecting system dilatation. There is no evidence of ureteral stone on either side. No perirenal inflammatory stranding or fluid. No definite evidence of renal mass lesion. There is no acute inflammatory change, abscess nor ascites. Normal appearance of the appendix. No evidence of mechanical bowel obstruction or perforation. No evidence of adenopathy. No evidence of AAA. The IVC is unremarkable. CT PELVIS: No evidence of pelvic mass nor adenopathy is demonstrated. No acute inflammatory change, abscess nor ascites. Calcified phleboliths are noted in the pelvis. Procedure Note Taras Jerez MD - 12/24/2018 EXAMINATION: CT Abdomen and Pelvis without contrast EXAM DATE/TIME: 12/24/2018 1:54 PM REASON FOR EXAM: Flank pain, stone disease suspected COMPARISON: 01/20/2016 TECHNIQUE: Computed tomography of the abdomen and pelvis was obtained without administration of intravenous contrast according to routine protocol. A dose lowering technique was used for this procedure, which mayinclude, but is not limited to, dose reduction technique, automated exposure control, iterative reconstruction, ALARA (As Low As ReasonablyAchievable), or Image Gently techniques. FINDINGS: CT ABDOMEN: Visualized portions of the lung bases are unremarkable.Small hiatal hernia. The liver is normal in size. No focal intrahepatic lesions are demonstrated. No evidence of cholelithiasis nor gallbladder wall thickening. Numerous calcified granulomata are noted in the spleen. Spleen is normalin size and otherwise unremarkable. Pancreas and the adrenal glands are unremarkable. Nonobstructing calcifications are present in both kidneys. There is significant abnormal dilatation of the proximal right renal collecting system. This is unchanged in comparison to the previous study and is associated with abnormal thinning and loss of parenchyma overlyingdilated calyces. The appearance suggests chronic partial right UPJ obstruction. There is no left collecting system dilatation. There is no evidence of ureteral stone on either side. No perirenal inflammatory stranding or fluid. No definite evidence of renal mass lesion. There is no acute inflammatory change, abscess nor ascites. Normal appearance of the appendix. No evidence of mechanical bowel obstructionor perforation. No evidence of adenopathy. No evidence of AAA. The IVC is unremarkable. CT PELVIS: No evidence of pelvic mass nor adenopathy is demonstrated. No acute inflammatory change, abscess nor ascites. Calcified phlebolithsare noted in the pelvis. =====IMPRESSION:===== 1. No acute inflammatory change, abscess nor ascites. Normal appearanceof the appendix. 2. Chronic abnormal dilatation of the proximal right renal collecting system with cortical atrophy. 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 Ifindicated, correlation with radionuclide Lasix renogram would be recommended for further evaluation. 3. No evidence of mechanical bowel obstruction nor perforation. us Estella Jolley MD CT Final Result * (ABNORMAL) URINALYSIS (12/24/2018 12:54 PM SYSTEMS TRAINER) SPECIMEN TYPE URINE CLEAN CATCH 12/24/2018 12:50 PM [facility] COLOR (U) YELLOW 12/24/2018 1:09 PM [facility] TRANSPARENCY CLEAR 12/24/2018 1:09 PM [facility] SPECIFIC GRAVITY (U) 1.014 1.001 - 1.030 12/24/2018 1:09 PM [facility] U PH 5.0 5.0 - 9.0 12/24/2018 1:09 PM [facility] LEUKOCYTES (U) NEGATIVE NEGATIVE 12/24/2018 1:09 PM [facility] NITRITES NEGATIVE NEGATIVE 12/24/2018 1:09 PM [facility] PROTEIN (U) 100(H) <30 MG/DL 12/24/2018 1:09 PM [facility] URINE GLUCOSE 150(A) NEGATIVE MG/DL 12/24/2018 1:09 PM [facility] KETONES MG/DL (U) NEGATIVE NEGATIVE MG/DL 12/24/2018 1:09 PM [facility] UROBILINOGEN NEGATIVE NEGATIVE MG/DL 12/24/2018 1:09 PM [facility] BILIRUBIN (U) NEGATIVE NEGATIVE MG/DL 12/24/2018 1:09 PM [facility] BLOOD (U) NEGATIVE NEGATIVE 12/24/2018 1:09 PM [facility] CULTURE & SENSITIVITY INDICATED? CULTURE IS NOT INDICATED 12/24/2018 1:09 PM [facility] SQUAMOUS EPITHELIALS MANY /LPF 12/24/2018 1:09 PM [facility] MUCUS RARE /LPF 12/24/2018 1:09 PM [facility] WBC/HPF 2 <6 /HPF 12/24/2018 1:09 PM [facility] RBC/HPF 3 <6 /HPF 12/24/2018 1:09 PM [facility] BACTERIA (U) FEW(A) NONE /HPF 12/24/2018 1:09 PM [facility] URINE SPECIMEN OBTAINED BY CLEAN CATCH PROCEDURE / Unknown 12/24/2018 12:54 PM SYSTEMS TRAINER us Kaye Pappas [employer] URINE ORDERABLES Final Res ult [facility] [address] [place] [address], [place] [phone] * (ABNORMAL) CBC W/DIFF AUTOMATED (12/24/2018 12:40 PM SYSTEMS TRAINER) WBC 10.2 4.5 - 11.0 x10'3/uL 12/24/2018 12:57 PM [facility] RBC 4.02(L) 4.20 - 5.40 x10'6/uL 12/24/2018 12:57 PM [facility] HGB 12.1 12.0 - 16.0 G/DL 12/24/2018 12:57 PM [facility] HCT 36.1(L) 38.0 - 48.0 % 12/24/2018 12:57 PM [facility] MCV 89.8 81.0 - 99.0 FL 12/24/2018 12:57 PM [facility] MCH 30.1 27.0 - 31.0 PG 12/24/2018 12:57 PM [facility] MCHC 33.5 32.0 - 36.0 G/DL 12/24/2018 12:57 PM [facility] RDW 13.0 11.5 - 14.5 % 12/24/2018 12:57 PM [facility] PLT 273 130 - 400 x10'3/uL 12/24/2018 12:57 PM [facility] MPV 11.4 9.3 - 12.2 FL 12/24/2018 12:57 PM [facility] DIFFERENTIAL TYPE AUTOMATED DIFFERENTIAL 12/24/2018 12:57 PM [facility] NEUTROPHILS % 67.3 % 12/24/2018 12:57 PM [facility] LYMPHOCYTES % 27.7 % 12/24/2018 12:57 PM [facility] MONOCYTES % 3.3 % 12/24/2018 12:57 PM [facility] EOSINOPHILS 0.9 % 12/24/2018 12:57 PM [facility] BASOPHILS 0.5 % 12/24/2018 12:57 PM [facility] IMMATURE GRANS % 0.3 % 12/25/19 19 12:57 PM [facility] ABS. NEUTROPHILS TOTAL 6.84 1.80 - 7.70 x10'3/uL 12/24/2018 12:57 PM [facility] ABS. LYMPHOCYTES 2.82 1.00 - 4.80 x10'3/uL 12/24/2018 12:57 PM [facility] ABS. MONOCYTES 0.34 0.24 - 0.86 x10'3/uL 12/24/2018 12:57 PM [facility] ABS. EOSINOPHILS 0.09 0.04 - 0.36 x10'3/uL 12/24/2018 12:57 PM [facility] ABS. BASOPHILS 0.05 0.01 - 0.08 x10'3/uL 12/24/2018 12:57 PM [facility] ABS. IMMATURE GRANULOCYTES 0.03 0.00 - 0.49 x10'3/uL 12/24/2018 12:57 PM [facility] 12/24/2018 12:4 0 PM SYSTEMS TRAINER Kaye Rushing Pappas [employer] LABORATORY Final Resu lt [facility] [address] [place] [address], * (ABNORMAL) COMPREHENSIVE METABOLIC PANEL (12/24/2018 12:40 PM SYSTEMS TRAINER) GLUCOSE 274(H) 70 - 99 MG/DL 12/24/2018 1:24 PM [facility] BUN 17 7 - 18 MG/DL 12/24/2018 1:24 PM [facility] CREATININE S/P/B 1.12(H) 0.55 - 1.02 MG/DL 12/24/2018 1:24 PM [facility] SODIUM S/P/B 138 136 - 145 MMOL/L 12/24/2018 1:24 PM [facility] POTASSIUM S/P/B 3.9 3.5 - 5.1 MMOL/L 12/24/2018 1:24 PM [facility] CHLORIDE S/P/B 105 100 - 108 MMOL/L 12/24/2018 1:24 PM [facility] CO2 26.2 21 - 32 MMOL/L 12/24/2018 1:24 PM [facility] CALCIUM S/P/B 8.9 8.5 - 10.1 MG/DL 12/24/2018 1:24 PM [facility] BILIRUBIN TOTAL S/P/B 0.3 0.2 - 1.2 MG/DL 12/24/2018 1:24 PM [facility] TOTAL PROTEIN S/P/B 8.1 6.4 - 8.2 G/DL 12/24/2018 1:24 PM [facility] ALBUMIN S/P/B 3.2(L) 3.4 - 5.0 G/DL 12/24/2018 1:24 PM [facility] AST 15 15 - 37 U/L 12/24/2018 1:24 PM [facility] ALT 21 14 - 55 U/L 12/24/2018 1:24 PM [facility] ALKALINE PHOSPHATASE S/P/B 135 50 - 136 U/L 12/24/2018 1:24 PM [facility] ANION GAP 6.8 5 - 15 MMOL/L 12/24/2018 1:24 PM [facility] BUN CREATININE RATIO 15.2 6 - 26 12/24/2018 1:24 PM [facility] A/G RATIO 0.7(L) 1.0 - 2.0 RATIO 12/24/2018 1:24 PM [facility] EGFR NON-AFR. AMER. 58(L) >90 ML/MIN/1.7 3 M2 12/24/2018 1:24 PM [facility] EGFR AFR. AMER. 68(L) >90 ML/MIN/1.7 3 M2 12/24/2018 1:24 PM [facility] Comment: NOTE: eGFR is not calculated for patients <18 years of age. This is an estimated GFR (CKD EPI) and should not be used for calculating drug doses. 12/24/2018 12:4 0 PM SYSTEMS TRAINER us Kaye Pappas NP LABORATORY Final Resu lt [facility] [address] [place] [address], [place] [phone] documented in this encounter Visit Diagnoses Diagnosis Right flank pain- Primary Abdominal pain, unspecified site Poorly-controlled hypertension documented in this encounter Administered Medications Inactive Administered Medications - up to 3 most recent administrations Medication Order MAR Action Action Date Dose Rate Site hydrochlorothiazide (HYDRODIURIL) tablet 25 mg 25 mg, Oral, Once, 1 dose, On Sun12/24/18 at 1500 Given 12/24/2018 3:14 PM SYSTEMS TRAINER 25 mg ibuprofen (MOTRIN) tablet 800 mg 800 mg, Oral, Once, 1 dose, On Sun12/24/18 at 1330 Given 12/24/2018 2:32 PM SYSTEMS TRAINER 800 mg lisinopril (PRINIVIL,ZESTRIL) tablet 40 mg 40 mg, Oral, Once, 1 dose, On Sun12/24/18 at 1500 Given 12/24/2018 3:14 PM SYSTEMS TRAINER 40 mg metoprolol tartrate (LOPRESSOR) tablet 100 mg 100 mg, Oral, Once, 1 dose, On Sun12/24/18 at 1500 Given 12/24/2018 3:14 PM SYSTEMS TRAINER 100 mg ondansetron (ZOFRAN-ODT) disintegrating tablet 4 mg 4 mg, Oral, Once, 1 dose, On Sun12/24/18 at 1330 Given 12/24/2018 2:32 PM SYSTEMS TRAINER 4 mg documented in this encounter Active and Recently Administered Medications Due to Daylight Saving Time, this section may contain times in both CDT and SYSTEMS TRAINER. Scheduled Medication Order 12/22/2018 12/23/2018 12/24/2018 hydrochlorothiazide (HYDRODIURIL) tablet 25 mg (COMPLETED) 25 mg, Oral, Once, 1 dose, On Sun12/24/18 at 1500 1514 (Given - Provid er: Ivon Keating RN) ibuprofen (MOTRIN) tablet 800 mg (COMPLETED) 800 mg, Oral, Once, 1 dose, On Sun12/24/18 at 1330 1432 (Given - Provid er: Ivon Keating RN) lisinopril (PRINIVIL,ZESTRIL) tablet 40 mg (COMPLETED) 40 mg, Oral, Once, 1 dose, On Sun12/24/18 at 1500 1514 (Given - Provid er: Ivon Keating RN) metoprolol tartrate (LOPRESSOR) tablet 100 mg (COMPLETED) 100 mg, Oral, Once, 1 dose, On Sun12/24/18 at 1500 1514 (Given - Provid er: Ivon Keating RN) ondansetron (ZOFRAN-ODT) disintegrating tablet 4 mg (COMPLETED) 4 mg, Oral, Once, 1 dose, On Sun12/24/18 at 1330 1432 (Given - Provid er: Ivon Keating RN) documented in this encounter Care Teams Ceramic Sprayer Relationship Specialty Start Date End Date Jarred Fernández MD PCP - General FAMILY PRACTICE 07/21/15 09/30/20 documented as of this encounter
--- OUTSIDE RECORDS SUMMARY | 2024-03-02 22:32 | XMS_ITS | Encounter Summary ---
Author Organization [facility] Address [address] [place] [address]. [place], [place] [address] [place] [address] Care Team Providers Care Pathology Assistant Name Role Phone Jarred Rod MD Primary Care Provider Unav ailable Shira Shi PA-C Primary Care Provider +1- [phone] Jarred Rod MD Primary Care Provider Unav ailable Colton SILVEIRA MD, Abiodun L Primary Care Provider Jarred Rod MD Primary Care Provider Unav ailable Encounter Details Date Type Department Care Team (Latest Contact Info) Description 03/21/2018 Scan HEALTH INFO SRVCS Scanned, Documents Social [...] COVID-19? No / Unsure 01/24/2021 11:10 AM ORDNANCE ARTIFICER HELPER documented as of this encounter Functional Status [...] st Contact Info) Description 03/14/2024 11:45 AM ORDNANCE ARTIFICER HELPER Office Visit [facility] [phone] Marvin Mckeon MD Three [facility] [address] [place] [address] [phone] 03/20/2024 11:30 AM ORDNANCE ARTIFICER HELPER Office Visit [facility] Family Medicine - [address] [address] Abiodun Segura II, MD [address] [place] [address] [phone] documented as of this encounter Visit Diagnoses Not on filedocumented in this encounter Additional Health Concerns Infection Onset Date Last Indicated Resolved Time COVID-19 Rule Out 09/22/2019 09/22/2019 09/24/2019 11:13 PM CDT COVID-19 Rule Out 11/02/2019 11/02/2019 11/03/2019 3:22 PM CDT COVID-19 Rule Out 12/13/2019 12/13/2019 12/14/2019 3:06 PM CDT COVID-19 Confirmed 12/13/2019 12/13/2019 0 12:34 AM ORDNANCE ARTIFICER HELPER documented as of this encounter Care Teams Pathology Assistant Relationship Specialty Start Date End Date Jarred Rod MD PCP - General FAMILY PRACTICE 07/21/15 09/30/20 Shira Shi, JESUSC [address] [place] [address] PCP - General PHYSICIAN BANQUET BARTENDER 10/01/20 11/17/20 Jarred Rod MD [address] [place] [address] PCP - General FAMILY PRACTICE 11/18/20 12/05/20 Abiodun Segura II, MD [address] [place] [address] PCP - General FAMILY PRACTICE 12/06/20 01/16/21 Jarred Rod MD [address] [place] [address] PCP - General FAMILY PRACTICE 01/17/21 03/08/21 documented as of this encounter
--- OUTSIDE RECORDS SUMMARY | 2024-03-02 22:32 | XMS_ITS | Encounter Summary ---
Author Organization [facility] Address [address] [place] [address]. [place], [place] [address] [place] [address] Care Team Providers Care Solar Sales Associate Name Role Phone Jarred Rod MD Primary Care Provider Unav ailable Shira Shi PA-C Primary Care Provider +1- [phone] Jarred Rod MD Primary Care Provider Unav ailable Colton SILVEIRA MD, Abiodun L Primary Care Provider Jarred Rod MD Primary Care Provider Unav ailable Encounter Details Date Type Department Care Team (Latest Contact Info) Description 04/01/2018 Scan HEALTH INFO SRVCS Scanned, Documents Social [...] COVID-19? No / Unsure 01/24/2021 11:10 AM PARA MACHINE OPERATOR documented as of this encounter [...] st Contact Info) Description 03/14/2024 11:45 AM PARA MACHINE OPERATOR Office Visit [facility] [phone] Marvin Mckeon MD Three [facility] [address] [place] [address] [phone] 03/20/2024 11:30 AM PARA MACHINE OPERATOR Office Visit [facility] Family Medicine - [address] [address] Abiodun Segura II, MD [address] [place] [address] [phone] documented as of this encounter Visit Diagnoses Not on filedocumented in this encounter Additional Health Concerns Infection Onset Date Last Indicated Resolved Time COVID-19 Rule Out 09/22/2019 09/22/2019 09/24/2019 11:13 PM CDT COVID-19 Rule Out 11/02/2019 11/02/2019 11/03/2019 3:22 PM CDT COVID-19 Rule Out 12/13/2019 12/13/2019 12/14/2019 3:06 PM CDT COVID-19 Confirmed 12/13/2019 12/13/2019 0 12:34 AM PARA MACHINE OPERATOR documented as of this encounter Care Teams Solar Sales Associate Relationship Specialty Start Date End Date Jarred Rod MD PCP - General FAMILY PRACTICE 07/21/15 09/30/20 Shira Shi, JESUSC [address] [place] [address] PCP - General PHYSICIAN INVENTORY ADMINISTRATOR 10/01/20 11/17/20 Jarred Rod MD [address] [place] [address] PCP - General FAMILY PRACTICE 11/18/20 12/05/20 Abiodun Segura II, MD [address] [place] [address] PCP - General FAMILY PRACTICE 12/06/20 01/16/21 Jarred Rod MD [address] [place] [address] PCP - General FAMILY PRACTICE 01/17/21 03/08/21 documented as of this encounter
--- OUTSIDE RECORDS SUMMARY | 2024-03-02 22:32 | XMS_ITS | Encounter Summary ---
Author Organization [facility] Address [address] [place] [address]. [place], [place] [address] [place] [address] Care Team Providers Care Lens Mounter Name Role Phone Jarred Rod MD Primary Care Provider Unav ailable Shira Shi PA-C Primary Care Provider +1- [phone] Jarred Rod MD Primary Care Provider Unav ailable Colton SILVEIRA MD, Abiodun L Primary Care Provider Jarred Rod MD Primary Care Provider Unav ailable Encounter Details Date Type Department Care Team (Latest Contact Info) Description 06/21/2018 Scan HEALTH INFO SRVCS Scanned, Documents Social [...] COVID-19? No / Unsure 01/24/2021 11:10 AM COPIER REPAIR TECHNICIAN documented as of this encounter Functional [...] st Contact Info) Description 03/14/2024 11:45 AM COPIER REPAIR TECHNICIAN Office Visit [facility] [phone] Marvin Mckeon MD Three [facility] [address] [place] [address] [phone] 03/20/2024 11:30 AM COPIER REPAIR TECHNICIAN Office Visit [facility] Family Medicine - [address] [address] Abiodun Segura II, MD [address] [place] [address] [phone] documented as of this encounter Visit Diagnoses Not on filedocumented in this encounter Additional Health Concerns Infection Onset Date Last Indicated Resolved Time COVID-19 Rule Out 09/22/2019 09/22/2019 09/24/2019 11:13 PM CDT COVID-19 Rule Out 11/02/2019 11/02/2019 11/03/2019 3:22 PM CDT COVID-19 Rule Out 12/13/2019 12/13/2019 12/14/2019 3:06 PM CDT COVID-19 Confirmed 12/13/2019 12/13/2019 0 12:34 AM COPIER REPAIR TECHNICIAN documented as of this encounter Care Teams Lens Mounter Relationship Specialty Start Date End Date Jarred Rod MD PCP - General FAMILY PRACTICE 07/21/15 09/30/20 Shira Shi, JESUSC [address] [place] [address] PCP - General PHYSICIAN FIRE EXTINGUISHER MECHANIC 10/01/20 11/17/20 Jarred Rod MD [address] [place] [address] PCP - General FAMILY PRACTICE 11/18/20 12/05/20 Abiodun Segura II, MD [address] [place] [address] PCP - General FAMILY PRACTICE 12/06/20 01/16/21 Jarred Rod MD [address] [place] [address] PCP - General FAMILY PRACTICE 01/17/21 03/08/21 documented as of this encounter
--- OUTSIDE RECORDS SUMMARY | 2024-03-02 22:32 | XMS_ITS | Encounter Summary ---
Author Organization [facility] Address [address] [place] [address]. [place], [place] [address] [place] [address] Care Team Providers Care Oiler Bander Name Role Phone Jarred Rod MD Primary Care Provider Unav ailable Shira Shi PA-C Primary Care Provider +1- [phone] Jarred Rod MD Primary Care Provider Unav ailable Colton SILVEIRA MD, Abiodun L Primary Care Provider Jarred Rod MD Primary Care Provider Unav ailable Encounter Details Date Type Department Care Team (Latest Contact Info) Description 09/20/2017 Scan HEALTH INFO SRVCS Scanned, Documents Social [...] COVID-19? No / Unsure 01/24/2021 11:10 AM SALESPERSON JEWELRY documented as of this encounter Functional Status [...] st Contact Info) Description 03/14/2024 11:45 AM SALESPERSON JEWELRY Office Visit [facility] [address] Marvin Mckeon MD Three [facility] [address] [place] [address] [phone] 03/20/2024 11:30 AM SALESPERSON JEWELRY Office Visit [facility] Family Medicine - [address] [address] Abiodun Segura II, MD [address] [place] [address] [phone] documented as of this encounter Visit Diagnoses Not on filedocumented in this encounter Additional Health Concerns Infection Onset Date Last Indicated Resolved Time COVID-19 Rule Out 09/22/2019 09/22/2019 09/24/2019 11:13 PM CDT COVID-19 Rule Out 11/02/2019 11/02/2019 11/03/2019 3:22 PM CDT COVID-19 Rule Out 12/13/2019 12/13/2019 12/14/2019 3:06 PM CDT COVID-19 Confirmed 12/13/2019 12/13/2019 0 12:34 AM SALESPERSON JEWELRY documented as of this encounter Care Teams Oiler Bander Relationship Specialty Start Date End Date Jarred Rod MD PCP - General FAMILY PRACTICE 07/21/15 09/30/20 Shira Shi, JESUSC [address] [place] [address] PCP - General PHYSICIAN MUSIC AGENT 10/01/20 11/17/20 Jarred Rod MD [address] [place] [address] PCP - General FAMILY PRACTICE 11/18/20 12/05/20 Abiodun Segura II, MD [address] [place] [address] PCP - General FAMILY PRACTICE 12/06/20 01/16/21 Jarred Rod MD [address] [place] [address] PCP - General FAMILY PRACTICE 01/17/21 03/08/21 documented as of this encounter
--- OUTSIDE RECORDS SUMMARY | 2024-03-02 22:32 | XMS_ITS | Encounter Summary ---
Author Organization [facility] Address [address] [place] [address]. [place] [address] [place] [address] Care Team Providers Care Bundles Hanger Name Role Phone Jarred Rod MD Primary Care Provider Unav ailable Reason for Visit * Reason Onset Date Comments Appointment Request 07/02/2017 Encounter Details Date Type Department Care Team (Late st Contact Info) Description 07/02/2017 Telephone [facility] at [facility], [facility] [address] [place], [place] [address] Hubert Barrera MD [facility]. [facility] [address] [place] [address] Appointment Request Social History Tobacco Use Types Packs/Day [...] AM CDT documented as of this encounter Progress Notes * Denise Bright - 07/02/2017 10:53 AM CDT I had faxed a referral to [facility] for Lena. I received a call from Roxana in the wound care center and she said that they do not take Santana. I then called [facility] and they said that they have to have on staff to sign orders. Dr. Barrera is not on staff at [facility]. Lena's PCP is not on staff at [facility] either. I called Lena and told her this and she said that she had went to [facility] before for wound care. I offered to see if she would like to go to the Wound Care center in [place]. She refused to go to [facility]. She said that she would call [facility] and call me back. No further questions were asked and she voiced unders tanding. documented in this encounter Plan of Treatment Upcoming Encounters Date Type Department Care Team (Late st Contact Info) Description 03/14/2024 11:45 AM TONGUE BINDER Office Visit [facility] [address] Marvin Mckeon MD [facility] [place] [address] 03/20/2024 11:30 AM TONGUE BINDER Office Visit [facility] Family Medicine - [address] [phone] Abiodun Segura II, MD [address] [place] [address] documented as of this encounter Visit Diagnoses Not on filedocumented in this encounter Care Teams Bundles Hanger Relationship Specialty Start Date End Date Jarred Rod MD PCP - General FAMILY PRACTICE 07/21/15 09/30/20 documented as of this encounter
--- OUTSIDE RECORDS SUMMARY | 2024-03-02 22:32 | XMS_ITS | Encounter Summary ---
Author Organization [facility] Address [address] [place] [address]. [place], [place] [address] [place] [address] Care Team Providers Care Mill Worker Name Role Phone Jarred Rod MD Primary Care Provider Unav ailable Shira Shi PA-C Primary Care Provider +1- [phone] Jarred Rod MD Primary Care Provider Unav ailable Colton SILVEIRA MD, Abiodun L Primary Care Provider Jarred Rod MD Primary Care Provider Unav ailable Reason for Visit * Reason Comments Image (SCAN) ECG (SCAN) Encounter Details Date Type Department Care Team (Late st Contact Info) Description 06/10/2018 Scan [facility] HEALTH INFO SRVCS Scanned, Documents Image (SCAN); ECG (SCAN) Social History Tobacco Use Types Packs/Day [...] COVID-19? No / Unsure 01/24/2021 11:10 AM STYRENE DEHYDRATION REACTOR OPERATOR documented as of this encounter Functional [...] st Contact Info) Description 03/14/2024 11:45 AM STYRENE DEHYDRATION REACTOR OPERATOR Office Visit [facility] [address] Marvin Mckeon MD [facility] [address] [place] [address] 03/20/2024 11:30 AM STYRENE DEHYDRATION REACTOR OPERATOR Office Visit [facility] Family Medicine - [place] [address] [place] [address] Abiodun Segura II, MD [address] [place], [place] [phone] documented as of this encounter Procedures Procedure Name Priority Date/Time Associated Diagnosis Comments ECG GENERIC (SCAN ORDER) 06/10/2018 IMAGE GENERIC 06/10/2018 IMAGE GENERIC 06/10/2018 documented in this encounter Results * IMAGE GENERIC (06/10/2018) Anatomical Region Laterality Modality Other 06/10/2018 Narrative 06/10/2018 Ordered by an unspecified provider. us Documents Scanned SCANNING Final Result * IMAGE GENERIC (06/10/2018) Anatomical Region Laterality Modality Other 06/10/2018 Narrative 06/10/2018 Ordered by an unspecified provider. us Documents Scanned SCANNING Final Result * ECG GENERIC (06/10/2018) 06/10/2018 Narrative 06/10/2018 Ordered by an unspecified provider. us Documents [...] COVID-19 Confirmed 12/13/2019 12/13/2019 0 12:34 AM STYRENE DEHYDRATION REACTOR OPERATOR documented as of this encounter Care Teams Mill Worker Relationship Specialty Start Date End Date Jarred Rod MD PCP - General FAMILY PRACTICE 07/21/15 09/30/20 Shira Shi PA-C [address] [place] [address] PCP - General PHYSICIAN HOP SEPARATOR 10/01/20 11/17/20 Jarred Rod MD [address] [place] [address] PCP - General FAMILY PRACTICE 11/18/20 12/05/20 Abiodun Segura II, MD [address] [place] [address] PCP - General FAMILY PRACTICE 12/06/20 01/16/21 Jarred Rod MD [address] [place] [address] PCP - General FAMILY PRACTICE 01/17/21 03/08/21 documented as of this encounter
--- OUTSIDE RECORDS SUMMARY | 2024-03-02 22:32 | XMS_ITS | Encounter Summary ---
Author Organization [facility] Address [address] [place] [address]. [place], [place] [address] [place] [address] Care Team Providers Care Renewal Specialist Name Role Phone Jarred Rod MD Primary Care Provider Unav ailable Shira Shi PA-C Primary Care Provider +1- [phone] Jarred Rod MD Primary Care Provider Unav ailable Colton SILVEIRA MD, Abiodun L Primary Care Provider Jarred Rod MD Primary Care Provider Unav ailable Encounter Details Date Type Department Care Team (Latest Contact Info) Description 12/19/2017 Scan HEALTH INFO SRVCS Scanned, Documents Social [...] COVID-19? No / Unsure 01/24/2021 11:10 AM FICTION AND NONFICTION PROSE WRITER documented [...] FICTION AND NONFICTION PROSE WRITER Office Visit [facility] [address] Marvin Mckeon MD Three [facility] [address] [place] [phone] 03/20/2024 11:30 AM FICTION AND NONFICTION PROSE WRITER Office Visit [facility] Family Medicine - [address] [address] Abiodun Segura II, MD [address] [place] [address] [phone] documented as of this encounter Visit Diagnoses Not on filedocumented in this encounter Additional Health Concerns Infection Onset Date Last Indicated Resolved Time COVID-19 Rule Out 09/22/2019 09/22/2019 09/24/2019 11:13 PM CDT COVID-19 Rule Out 11/02/2019 11/02/2019 11/03/2019 3:22 PM CDT COVID-19 Rule Out 12/13/2019 12/13/2019 12/14/2019 3:06 PM CDT COVID-19 Confirmed 12/13/2019 12/13/2019 0 12:34 AM FICTION AND NONFICTION PROSE WRITER documented as of this encounter Care Teams Renewal Specialist Relationship Specialty Start Date End Date Jarred Rod MD PCP - General FAMILY PRACTICE 07/21/15 09/30/20 Shira Shi, JESUSC [address] [place] [address] PCP - General PHYSICIAN APPLICATION SUPPORT LEAD 10/01/20 11/17/20 Jarred Rod MD [address] [place] [address] PCP - General FAMILY PRACTICE 11/18/20 12/05/20 Abiodun Segura II, MD [address] [place] [address] PCP - General FAMILY PRACTICE 12/06/20 01/16/21 Jarred Rod MD [address] [place] [address] PCP - General FAMILY PRACTICE 01/17/21 03/08/21 documented as of this encounter
--- OUTSIDE RECORDS SUMMARY | 2024-03-02 22:32 | XMS_ITS | Encounter Summary ---
Author Organization [facility] Address [address] [place] [address]. [place], [place] [address] [place] [address] Care Team Providers Care Personnel Director Name Role Phone Jarred Rod MD Primary Care Provider Unav ailable Shira Shi PA-C Primary Care Provider +1- [phone] Jarred Rod MD Primary Care Provider Unav ailable Colton SILVEIRA MD, Abiodun L Primary Care Provider Jarred Rod MD Primary Care Provider Unav ailable Reason for Visit * Reason Comments Procedure (SCAN) Encounter Details Date Type Department Care Team (Late st Contact Info) Description 07/23/2018 Scan HEALTH INFO SRVCS Scanned, Documents Procedure (SCAN) [...] COVID-19? No / Unsure 01/24/2021 11:10 AM POLITICAL ORGANIZER documented as of this encounter Functional Status [...] st Contact Info) Description 03/14/2024 11:45 AM POLITICAL ORGANIZER Office Visit [facility] [phone] Marvin Mckeon MD Three [facility] [address] [place] [address] 03/20/2024 11:30 AM POLITICAL ORGANIZER Office Visit [facility] Family Medicine - [place] [address] [place] [phone] Abiodun Segura II, MD [address] [place], [place] [phone] documented as of this encounter Procedures Procedure Name Priority Date/Time Associated Diagnosis Comments PROCEDURE GENERIC (SCAN ORDER) 07/23/2018 documented in this encounter Results * PROCEDURE GENERIC (07/23/2018) 07/23/2018 Narrative 07/23/2018 Ordered by an unspecified provider. us Documents [...] COVID-19 Confirmed 12/13/2019 12/13/2019 0 12:34 AM POLITICAL ORGANIZER documented as of this encounter Care Teams Personnel Director Relationship Specialty Start Date End Date Jarred Rod MD PCP - General FAMILY PRACTICE 07/21/15 09/30/20 Shira Shi PA-C [address] [place] [address] PCP - General PHYSICIAN AS400 ADMINISTRATOR 10/01/20 11/17/20 Jarred Rod MD [address] [place] [address] PCP - General FAMILY PRACTICE 11/18/20 12/05/20 Abiodun Segura II, MD [address] [place] [address] PCP - General FAMILY PRACTICE 12/06/20 01/16/21 Jarred Rod MD [address] [place] [address] PCP - General FAMILY PRACTICE 01/17/21 03/08/21 documented as of this encounter
--- OUTSIDE RECORDS SUMMARY | 2024-03-02 22:32 | XMS_ITS | Encounter Summary ---
Author Organization [facility] Address [address] [place] [address]. [place], [place] [id number] [place] [address] Care Team Providers Care Fishing Tackle Repairer Name Role Phone Jarred Rod MD Primary Care Provider Unav ailable Shira Shi PA-C Primary Care Provider +1- [phone] Jarred Rod MD Primary Care Provider Unav ailable Colton SILVEIRA MD, Abiodun L Primary Care Provider Jarred Rod MD Primary Care Provider Unav ailable Encounter Details Date Type Department Care Team (Latest Contact Info) Description 07/27/2018 Scan HEALTH INFO SRVCS Scanned, Documents Social [...] COVID-19? No / Unsure 01/24/2021 11:10 AM OPHTHALMIC ASSISTANT documented as of this encounter Functional [...] st Contact Info) Description 03/14/2024 11:45 AM OPHTHALMIC ASSISTANT Office Visit [facility] [phone] Marvin Mckeon MD Three [facility] [address] [place] [address] [phone] 03/20/2024 11:30 AM OPHTHALMIC ASSISTANT Office Visit [facility] Family Medicine - [address] [address] Abiodun Segura II, MD [address] [place] [phone] documented as of this encounter Visit Diagnoses Not on filedocumented in this encounter Additional Health Concerns Infection Onset Date Last Indicated Resolved Time COVID-19 Rule Out 09/22/2019 09/22/2019 09/24/2019 11:13 PM CDT COVID-19 Rule Out 11/02/2019 11/02/2019 11/03/2019 3:22 PM CDT COVID-19 Rule Out 12/13/2019 12/13/2019 12/14/2019 3:06 PM CDT COVID-19 Confirmed 12/13/2019 12/13/2019 0 12:34 AM OPHTHALMIC ASSISTANT documented as of this encounter Care Teams Fishing Tackle Repairer Relationship Specialty Start Date End Date Jarred Rod MD PCP - General FAMILY PRACTICE 07/21/15 09/30/20 Shira Shi, JESUSC [address] [place] [phone] PCP - General PHYSICIAN ASW SPECIALIST 10/01/20 11/17/20 Jarred Rod MD [address] [place] [phone] PCP - General FAMILY PRACTICE 11/18/20 12/05/20 Abiodun Segura II, MD [address] [place] [phone] PCP - General FAMILY PRACTICE 12/06/20 01/16/21 Jarred Rod MD [address] [place] [phone] PCP - General FAMILY PRACTICE 01/17/21 03/08/21 documented as of this encounter
--- OUTSIDE RECORDS SUMMARY | 2024-03-02 22:32 | XMS_ITS | Encounter Summary ---
Author Organization [facility] Address [address] [place] [address]. [place], [place] [address] [place] [address] Care Team Providers Care Respiratory Assistant Name Role Phone Jarred Rod MD Primary Care Provider Unav ailable Shira Shi PA-C Primary Care Provider +1- [phone] Jarred Rod MD Primary Care Provider Unav ailable Colton SILVEIRA MD, Abiodun L Primary Care Provider Jarred Rod MD Primary Care Provider Unav ailable Encounter Details Date Type Department Care Team (Latest Contact Info) Description 07/16/2018 Scan HEALTH INFO SRVCS Scanned, Documents Social [...] COVID-19? No / Unsure 01/24/2021 11:10 AM RIDE OPERATOR documented as of this encounter Functional [...] st Contact Info) Description 03/14/2024 11:45 AM RIDE OPERATOR Office [facility] [phone] Marvin Mckeon MD Three [facility] [address] [place] [phone] 03/20/2024 11:30 AM RIDE OPERATOR Office Visit [facility] Family Medicine - [address] [address] Abiodun Segura II, MD [address] [place] [address] [phone] documented as of this encounter Visit Diagnoses Not on filedocumented in this encounter Additional Health Concerns Infection Onset Date Last Indicated Resolved Time COVID-19 Rule Out 09/22/2019 09/22/2019 09/24/2019 11:13 PM CDT COVID-19 Rule Out 11/02/2019 11/02/2019 11/03/2019 3:22 PM CDT COVID-19 Rule Out 12/13/2019 12/13/2019 12/14/2019 3:06 PM CDT COVID-19 Confirmed 12/13/2019 12/13/2019 0 12:34 AM RIDE OPERATOR documented as of this encounter Care Teams Respiratory Assistant Relationship Specialty Start Date End Date Jarred Rod MD PCP - General FAMILY PRACTICE 07/21/15 09/30/20 Shira Shi, JESUSC [address] [place] [address] PCP - General PHYSICIAN BRASS POLISHER 10/01/20 11/17/20 Jarred Rod MD [address] [place] [phone] PCP - General FAMILY PRACTICE 11/18/20 12/05/20 Abiodun Segura II, MD [address] [place] [address] PCP - General FAMILY PRACTICE 12/06/20 01/16/21 Jarred Rod MD [address] [place] [address] PCP - General FAMILY PRACTICE 01/17/21 03/08/21 documented as of this encounter
--- OUTSIDE RECORDS SUMMARY | 2024-03-02 22:32 | XMS_ITS | Encounter Summary ---
Author Organization [facility] Address [address] [place] [address]. [place], [place] [address] [place] [address] Care Team Providers Care Display Carver Name Role Phone Jarred Rod MD Primary Care Provider Unav ailable Shira Shi PA-C Primary Care Provider +1- [phone] Jarred Rod MD Primary Care Provider Unav ailable Colton SILVEIRA MD, Abiodun L Primary Care Provider Jarred Rod MD Primary Care Provider Unav ailable Encounter Details Date Type Department Care Team (Latest Contact Info) Description 06/09/2018 Scan HEALTH INFO SRVCS Scanned, Documents Social [...] COVID-19? No / Unsure 01/24/2021 11:10 AM COUNTER ROLLER documented as of this encounter Functional Status [...] st Contact Info) Description 03/14/2024 11:45 AM COUNTER ROLLER Office Visit [facility] [phone] Marvin Mckeon MD Three [facility] [address] [place] [phone] 03/20/2024 11:30 AM COUNTER ROLLER Office Visit [facility] Family Medicine - [address] [address] Abiodun Segura II, MD [address] [place] [address] [phone] documented as of this encounter Visit Diagnoses Not on filedocumented in this encounter Additional Health Concerns Infection Onset Date Last Indicated Resolved Time COVID-19 Rule Out 09/22/2019 09/22/2019 09/24/2019 11:13 PM CDT COVID-19 Rule Out 11/02/2019 11/02/2019 11/03/2019 3:22 PM CDT COVID-19 Rule Out 12/13/2019 12/13/2019 12/14/2019 3:06 PM CDT COVID-19 Confirmed 12/13/2019 12/13/2019 0 12:34 AM COUNTER ROLLER documented as of this encounter Care Teams Display Carver Relationship Specialty Start Date End Date Jarred Rod MD PCP - General FAMILY PRACTICE 07/21/15 09/30/20 Shira Shi, JESUSC [address] [place] [phone] PCP - General PHYSICIAN ENTERPRISE ACCOUNT EXECUTIVE 10/01/20 11/17/20 Jarred Rod MD [address] [place] [phone] PCP - General FAMILY PRACTICE 11/18/20 12/05/20 Abiodun Segura II, MD [address] [place] [phone] PCP - General FAMILY PRACTICE 12/06/20 01/16/21 Jarred Rod MD [address] [place] [phone] PCP - General FAMILY PRACTICE 01/17/21 03/08/21 documented as of this encounter
--- OUTSIDE RECORDS SUMMARY | 2024-03-02 22:32 | XMS_ITS | Encounter Summary ---
Author Organization [facility] Address [address] [place] [address]. [place], [place] [id number] [place] [address] Care Team Providers Care Forest Botany Instructor Name Role Phone Jarred Rod MD Primary Care Provider Unav ailable Shira Shi PA-C Primary Care Provider +1- [phone] Jarred Rod MD Primary Care Provider Unav ailable Colton SILVEIRA MD, Abiodun L Primary Care Provider Jarred Rod MD Primary Care Provider Unav ailable Reason for Visit * Reason Comments CT (SCAN) Encounter Details Date Type Department Care Team (Latest Contact Info) Description 11/11/2017 Scan HEALTH INFO SRVCS Scanned, Documents CT [...] COVID-19? No / Unsure 01/24/2021 11:10 AM CORPORATE AFFAIRS MANAGER documented as of this encounter Functional [...] st Contact Info) Description 03/14/2024 11:45 AM CORPORATE AFFAIRS MANAGER Office Visit [facility] [phone] Marvin Mckeon MD Three [facility] [address] [place] [address] 03/20/2024 11:30 AM CORPORATE AFFAIRS MANAGER Office Visit [facility] Family Medicine - [place] [address] [place] [phone] Abiodun Segura II, MD [address] [place], [place] [phone] documented as of this encounter Procedures Procedure Name Priority Date/Time Associated Diagnosis Comments CT GENERIC 11/11/2017 documented in this encounter Results * CT GENERIC (11/11/2017) Anatomical Region Laterality Modality Other 11/11/2017 Narrative 11/11/2017 Ordered by an unspecified provider. us Documents [...] COVID-19 Confirmed 12/13/2019 12/13/2019 0 12:34 AM CORPORATE AFFAIRS MANAGER documented as of this encounter Care Teams Forest Botany Instructor Relationship Specialty Start Date End Date Jarred Rod MD PCP - General FAMILY PRACTICE 07/21/15 09/30/20 Shira Shi PA-C [address] [place] [phone] PCP - General PHYSICIAN INTERNATIONAL ACCOUNTANT 10/01/20 11/17/20 Jarred Rod MD [address] [place] [phone] PCP - General FAMILY PRACTICE 11/18/20 12/05/20 Abiodun Segura II, MD [address] [place] [phone] PCP - General FAMILY PRACTICE 12/06/20 01/16/21 Jarred Rod MD [address] [place] [phone] PCP - General FAMILY PRACTICE 01/17/21 03/08/21 documented as of this encounter
--- OUTSIDE RECORDS SUMMARY | 2024-03-02 22:32 | XMS_ITS | Encounter Summary ---
Author Organization [facility] Address [address] [place] [address]. [place] [address] [place] [address] Care Team Providers Care Small Animal Caretaker Name Role Phone Jarred Rod MD Primary Care Provider Unav ailable Reason for Referral * Imaging (Emergency) - Closed Specialty Diagnoses / Procedures Referred By Lyla chaney Referred To Contact RADIOLOGY Procedures CT ABD+PEL W IV CON ONLY Kvng Lewis MD [address] [address] Phone: tel: fax: Referral ID Status Reason Start Date Expiration Date Visits Re quested Visits Authorized [id number] Closed 05/01/2019 05/31/2020 1 1 Reason for Visit * Reason Comments Vaginal Pain Back Pain Encounter Details Date Type Department Care Team (Late st Contact Info) Description 05/01/2019 1:18 AM CDT - 05/01/2019 3:54 AM CDT Emergency [facility] Emergency Room [place], [place] [id number] Kvng Lewis MD [address] [phone] Vaginal Pain; Back Pain Discharge Disposition: Home or Self [...] Sign Reading Time Taken Comments Blood Pressure 149/95 05/01/2019 3:46 AM CDT Pulse 82 05/01/2019 3:46 AM CDT Temperature 36.4 ??C (97.5 ??F) 05/01/2019 1:13 AM CD T Respiratory Rate 18 05/01/2019 3:46 AM CDT Oxygen Saturation 100% 05/01/2019 3:46 AM CDT Inhaled Oxygen Concentration - - Weight 87.3 kg (192 lb 6 oz) 05/01/2019 1:13 AM CDT Height 167.6 cm (5' 6 ) 05/01/2019 1:13 AM CDT Body Mass Index 31.05 05/01/2019 1:13 AM CDT documented in this encounter Discharge Instructions * Attachments The following attachments cannot be sent through Care Everywhere. * Acute Pelvic Pain Discharge Instructions (Salvadorean) documented in this encounter Medications at Time [...] as of this encounter ED Notes * Kvng Lewis MD - 05/01/2019 1:42 AM CDT Chief Complaint Chief Complaint Patient presents with ??? Vaginal Pain ??? Back Pain History of Present Illness This patient is a 49yo AAF with PMH DM, HTN who presents for evaluation of abdominal pain. Pt notesa 4 day h/o severe lower abdominal pain. The pain is nonradiating and worse with movement. The patient denies fever/chills, nausea/vomiting, diarrhea, GI bleeding, dysuria, or urinary frequency. However, she does note a h/o chronic constipation for which she is not on medication. She reports several days without any recent BM. The patient further adds that this pain is not similar to that experienced previously with constipation. The patient further notes incontinence of urine when straining. Previous abdominal surgery includes a partial hysterectomy. Yesterday, the patient underwent pelvic US revealed Nabothian cysts of the cervix. Medical History ALLERGIES: Allergies Allergen Reactions ??? Amoxicillin Rash ??? Penicillins Rash MEDICATIONS: Prior to Admission medications Medication Sig Start Date End Date Taking? Authorizing Provider docusate sodium 100 MG capsule Take 1 capsule (100 mg total) by mouth 2 (two) times daily. 05/01/19 Yes Kvng Lewis MD HUMALOG MIX 75/25 (75-25) [...] mg by mouth nightly. Yes Doc Abstract hydrocodone-acetaminophen 5-325 MG tablet Take 1-2 tablets by mouth every 6 (six) hours as needed. Indications: Acute Pain < 7 Day Supply 05/01/19 Yes Kvng Lewis MD lisinopril 40 MG [...] days. INJECT ON Sunday10/07/18 Yes Doc Abstract aspirin EC 81 MG tablet Take 81 mg by mouth daily. 01/22/19 01/22/20 Doc Abstract ondansetron 4 MG disintegrating tablet Take 1 tablet (4 mg total) by mouth every 4 (four) hours as needed for Nausea. 02/15/19 Christ Coombs MD PAST MEDICAL HISTORY: Past Medical History: [...] Negative. Cardiovascular: Negative. Gastrointestinal: Positive for abdominal pain and constipation. Negative for blood in stool, diarrhea, nausea and vomiting. Genitourinary: Negative. Musculoskeletal: Negative. Skin: Negative. Neurological: Negative. All other systems reviewed and are negative. Physical Exam Filed Vitals: 05/01/19 0113 05/01/19 0346 BP: (!) 190/111 (!) 149/95 Pulse: 85 82 Resp: 16 18 Temp: 97.5 ??F (36.4 ??C) TempSrc: Temporal SpO2: 100% 100% Weight: 87.3 kg (192 lb 6 oz) Height: 5' 6 (1.676 m) Physical [...] distension and no mass. There is tenderness (Tenderness is noted across the lower abdomen.). There is no rebound and [...] No results found for this visit on 05/01/19. LABORATORY STUDIES: Results for orders placed or performed during the hospital encounter of 05/01/19 URINALYSIS Result Value Ref Range Specimen Type URINE CLEAN CATCH COLOR (U) YELLOW TRANSPARENCY CLOUDY Specific [place] (U) 1.008 1.001 - 1.030 U PH 5.0 5.0 - 9.0 LEUKOCYTE ESTERASE NEGATIVE NEGATIVE NITRITES NEGATIVE NEGATIVE PROTEIN(U) 30 (H) <30 MG/DL URINE GLUCOSE >500 (A) NEGATIVE MG/DL U KETONES NEGATIVE NEGATIVE MG/DL UROBILINOGEN NEGATIVE NEGATIVE MG/DL BILIRUBIN (U) NEGATIVE NEGATIVE MG/DL BLOOD NEGATIVE NEGATIVE CULTURE & SENSITIVITY INDICATED? CULTURE IS NOT INDICATED SQUAMOUS EPITHELIALS MANY /LPF HYALINE CASTS FEW /LPF WBC/HPF 2 <6 /HPF RBC/HPF 1 <6 /HPF BACTERIA (URINE) FEW (A) NONE /HPF CBC W/DIFF AUTOMATED Result Value Ref Range WBC 9.3 4.5 - 11.0 x10'3/uL RBC 3.90 (L) 4.20 - 5.40 x10'6/uL HGB 11.9 (L) 12.0 - 16.0 G/DL HCT 35.2 (L) 38.0 - 48.0 % MCV 90.3 80.0 - 94.0 FL MCH 30.5 27.0 - 31.0 PG MCHC 33.8 32.0 - 36.0 G/DL RDW 12.7 11.5 - 14.5 % PLT 197 130 - 400 x10'3/uL MPV 11.1 9.3 - 12.2 FL DIFFERENTIAL TYPE AUTOMATED DIFFERENTIAL NEUTROPHILS 56.1 % LYMPHOCYTES 36.9 % MONOCYTES 4.7 % EOSINOPHILS 1.4 % BASOPHILS 0.8 % IMMATURE GRANS 0.1 % ABS. NEUTROPHILS TOTAL 5.21 1.80 - 7.70 x10'3/uL ABS. LYMPHOCYTES 3.42 1.00 - 4.80 x10'3/uL ABS. MONOCYTES 0.44 0.24 - 0.86 x10'3/uL ABS. EOSINOPHILS 0.13 0.04 - 0.36 x10'3/uL ABS. BASOPHILS 0.07 0.01 - 0.08 x10'3/uL ABS. IMMATURE GRANULOCYTES 0.01 0.00 - 0.49 x10'3/uL COMPREHENSIVE METABOLIC PANEL Result Value Ref Range GLUCOSE 253 (H) 70 - 99 MG/DL BUN 33 (H) 7 - 18 MG/DL CREATININE S/P/B 1.34 (H) 0.55 - 1.02 MG/DL SODIUM 136 136 - 145 MMOL/L POTASSIUM 4.4 3.5 - 5.1 MMOL/L CHLORIDE S/P/B 106 100 - 108 MMOL/L CO2 24.2 21 - 32 MMOL/L CALCIUM 9.3 8.5 - 10.1 MG/DL TOTAL BILIRUBIN S/P/B 0.2 0.2 - 1.2 MG/DL TOTAL PROTEIN 8.8 (H) 6.4 - 8.2 G/DL ALBUMIN S/P/B 3.5 3.4 - 5.0 G/DL AST 17 15 - 37 U/L ALT 31 14 - 55 U/L ALK PHOS 136 50 - 136 U/L ANION GAP 5.8 5 - 15 MMOL/L BUN CREATININE RATIO 24.6 6 - 26 A/G RATIO 0.7 (L) 1.0 - 2.0 RATIO eGFR Non-Afr. Amer. 47 (L) >90 ML/MIN/1.73 M2 eGFR Afr. Amer. 54 (L) >90 ML/MIN/1.[address] ABD+PEL W IV CON ONLY Final Result by User, [id number] (04/30 7748) EXAMINATION: CT ABDOMEN AND PELVIS WITH CONTRAST HISTORY: Lower abdominal, vaginal and back pain. COMPARISON: CT 02/15/2019, 01/02/2016 and 08/20/2015. TECHNIQUE: 3 mm axial images were obtained through the abdomen and pelvis following the administration of 100 MLS of ISOVUE-370 intravenous contrast through an existing IV line. Additional sagittal & coronal reconstructions were performed. FINDINGS: ABDOMEN: Imaging of the lung bases demonstrates no airspace consolidation or effusions. Liver: Normal in size and CT density. No masses. Spleen: Normal size and CT density. Pancreas: Normal size and CT density. No duct dilatation. No masses. Adrenal Glands: Normal in size and CT density. No masses. Gallbladder and bile ducts: Normal in appearance. No duct dilatation. Kidneys: Marked right pelvocaliectasis, unchanged. No left hydronephrosis or hydroureter. A 2 mm nonobstructing left renal calyceal stone. Symmetric perfusion. No masses. Aorta: Patent. Normal in caliber. Mild atherosclerotic disease. IVC: Patent. Normal in caliber. GI Tract: No small bowel obstruction. No intraperitoneal or retroperitoneal adenopathy or hematoma. No ascites or pneumoperitoneum is seen. PELVIS: Colon: Normal in caliber and appearance without focal inflammatory changes. Appendix: Normal. Urinary Bladder: Underdistended. Uterus & Adnexa: Uterus surgically absent. An ill-defined 2.6 x 4.8 cm soft tissue density in the region of the vaginal cuff which appears to be enlarging compared to sequential previous CT examinations. Redemonstration of a 1.9 cm ill-defined soft tissue density in the region of the right adnexa. No pelvic free fluid, hematoma, mass or adenopathy. BONES: No distinct destructive bony lesions. IMPRESSION: 1. Persistent marked right pelvocaliectasis suggesting chronic right UPJ obstruction, unchanged. 2. No bowel obstruction or acute appendicitis. 3. Nonobstructive left nephrolithiasis. 4. Redemonstrated ill-defined 1.9 cm right adnexal indeterminate soft tissue density. 5. Ill-defined 2.6 x 4.8 cm soft tissue density in the region of the vaginal cuff which appears to be enlarging compared to sequential previous CT examinations. Neoplastic disease in this location is not entirely excluded. Clinical correlation recommended. A radiation dose lowering technique was used for this procedure, which may include, but is not limited to, dose reduction technique, automated exposure control, the use of iterative reconstruction, ALARA (As Low As Reasonably Achievable) techniques, and Image Gently techniques. Interpreted By: Cem Caballero MD, 05/01/2019 2:55 AM ED Course / Medical Decision Making Workup is negative aside from the soft tissue masses noted on CT. The patient continued to have discomfort following NSAIDs. So, we will plan for norco PRN and a stool softener. Otherwise, pt advisedto f/u with gynecology for further evaluation (specifically to exclude malignancy). Clinical Impression Cervical mass (Primary) Disposition: Discharge Kvng Lewis MD 05/01/19 0425 * Perri Paulino RN - 05/01/2019 1:12 AM CDT Pt saw PMD about her vaginal and back pain, pt had a CT scan of the chest and US of pelvic area 2 days, per pt it showed a cyst on her ovaries ans cervix. Pt called PMD this evening and was told to come into ER d/t pain. documented in this encounter Plan of Treatment Upcoming Encounters Date Type Department Care Team (Late st Contact Info) Description 03/14/2024 11:45 AM BROOM BUNDLER Office Visit [facility]-[address] [phone] Marvin Mckeon MD [address] [facility] [address] [place], [place] [id number] 03/20/2024 11:30 AM BROOM BUNDLER Office Visit [facility] - [place] [address] [place] [phone] Abiodun Segura II, MD [address] [place], [place] [phone] documented as of this encounter Procedures Procedure Name Priority Date/Time Associated Diagnosis Comments CT ABD+PEL W CON STAT 05/01/2019 3:20 AM CDT HC URINALYSIS AUTO W/O MICRO STAT 05/01/2019 1:59 AM CDT COMPREHENSIVE METABOLIC PANEL STAT 05/01/2019 1:48 AM CDT CBC W/DIFF AUTOMATED STAT 05/01/2019 1:48 AM CDT documented in this encounter Results * CT ABD+PEL W IV CON ONLY (05/01/2019 3:20 AM CDT) Anatomical Region Laterality Modality Abdomen Computed Tomogra phy 05/01/2019 2:55 AM CDT Impressions 05/01/2019 3:27 AM CDT IMPRESSION: 1. Persistent marked right pelvocaliectasis suggesting chronic right UPJ obstruction, unchanged. 2. No bowel obstruction or acute appendicitis. 3. Nonobstructive left nephrolithiasis. 4. Redemonstrated ill-defined 1.9 cm right adnexal indeterminate soft tissue density. 5. Ill-defined 2.6 x 4.8 cm soft tissue density in the region of the vaginal cuff which appears to be enlarging compared to sequential previous CT examinations. ??Neoplastic disease in this location is not entirely excluded. ??Clinical correlation recommended. A radiation dose lowering technique was used for this procedure, which may include, but is not limited to, dose reduction technique, automated exposure control, the use of iterative reconstruction, ALARA (As Low As Reasonably Achievable) techniques, and Image Gently techniques. Interpreted By: Cem Caballero MD, 05/01/2019 2:55 AM Narrative 05/01/2019 3:27 AM CDT EXAMINATION: CT ABDOMEN AND PELVIS WITH CONTRAST HISTORY: Lower abdominal, vaginal and back pain. COMPARISON: CT 02/15/2019, 01/02/2016 and 08/20/2015. TECHNIQUE: 3 mm axial images were obtained through the abdomen and pelvis following the administration of 100 MLS of ISOVUE-370 intravenous contrast through an existing IV line. Additional sagittal & coronal reconstructions were performed. FINDINGS: ABDOMEN: Imaging of the lung bases demonstrates no airspace consolidation or effusions. Liver: Normal in size and CT density. No masses. Spleen: Normal size and CT density. Pancreas: Normal size and CT density. No duct dilatation. No masses. Adrenal Glands: Normal in size and CT density. No masses. Gallbladder and bile ducts: Normal in appearance. No duct dilatation. Kidneys: Marked right pelvocaliectasis, unchanged. No left hydronephrosis or hydroureter. A 2 mm nonobstructing left renal calyceal stone. Symmetric perfusion. No masses. Aorta: Patent. Normal in caliber. Mild atherosclerotic disease. IVC: Patent. Normal in caliber. ?? GI Tract: No small bowel obstruction. No intraperitoneal ??or retroperitoneal adenopathy or hematoma. No ascites or pneumoperitoneum is seen. PELVIS: Colon: Normal in caliber and appearance without focal inflammatory changes. Appendix: Normal. Urinary Bladder: Underdistended. Uterus & Adnexa: Uterus surgically absent. ?? An ill-defined 2.6 x 4.8 cm soft tissue density in the region of the vaginal cuff which appears to be enlarging compared to sequential previous CT examinations. ?? Redemonstration of a 1.9 cm ill-defined soft tissue density in the region of the right adnexa. No pelvic free fluid, hematoma, mass or adenopathy. BONES: No distinct destructive bony lesions. Procedure Note Neel Caballero MD - 05/01/2019 EXAMINATION: CT ABDOMEN AND PELVIS WITH CONTRAST HISTORY: Lower abdominal, vaginal and back pain. COMPARISON: CT 02/15/2019, 01/02/2016 and 08/20/2015. TECHNIQUE: 3 mm axial images were obtained through the abdomen and pelvis followingthe administration of 100 MLS of ISOVUE-370 intravenous contrast throughan existing IV line. Additional sagittal & coronal reconstructions wereperformed. FINDINGS: ABDOMEN: Imaging of the lung bases demonstrates no airspace consolidation oreffusions. Liver: Normal in size and CT density. No masses. Spleen: Normal size and CT density. Pancreas: Normal size and CT density. No duct dilatation. No masses. Adrenal Glands: Normal in size and CT density. No masses. Gallbladder and bile ducts: Normal in appearance. No duct dilatation. Kidneys: Marked right pelvocaliectasis, unchanged. No left hydronephrosisor hydroureter. A 2 mm nonobstructing left renal calyceal stone. Symmetricperfusion. No masses. Aorta: Patent. Normal in caliber. Mild atherosclerotic disease. IVC: Patent. Normal in caliber. GI Tract: No small bowel obstruction. No intraperitoneal or retroperitoneal adenopathy or hematoma. No ascites or pneumoperitoneum is seen. PELVIS: Colon: Normal in caliber and appearance without focal inflammatorychanges. Appendix: Normal. Urinary Bladder: Underdistended. Uterus & Adnexa: Uterus surgically absent. An ill-defined 2.6 x 4.8 cm soft tissue density in the region of thevaginal cuff which appears to be enlarging compared to sequential previousCT examinations. Redemonstration of a 1.9 cm ill-defined soft tissue density in the regionof the right adnexa. No pelvic free fluid, hematoma, mass or adenopathy. BONES: No distinct destructive bony lesions. IMPRESSION: 1. Persistent marked right pelvocaliectasis suggesting chronic right UPJobstruction, unchanged. 2. No bowel obstruction or acute appendicitis. 3. Nonobstructive left nephrolithiasis. 4. Redemonstrated ill-defined 1.9 cm right adnexal indeterminate softtissue density. 5. Ill-defined 2.6 x 4.8 cm soft tissue density in the region of thevaginal cuff which appears to be enlarging compared to sequential previousCT examinations. Neoplastic disease in this location is not entirelyexcluded. Clinical correlation recommended. A radiation dose lowering technique was used for this procedure, which mayinclude, but is not limited to, dose reduction technique, automatedexposure control, the use of iterative reconstruction, ALARA (As Low AsReasonably Achievable) techniques, and Image Gently techniques. Interpreted By: Cem Caballero MD, 05/01/2019 2:55 AM Kvng Lewis MD CT Final Re sult * (ABNORMAL) URINALYSIS (05/01/2019 1:59 AM CDT) SPECIMEN TYPE URINE CLEAN CATCH 05/01/2019 1:57 AM CDT [facility] COLOR (U) YELLOW 05/01/2019 2:09 AM CDT [facility] TRANSPARENCY CLOUDY 05/01/2019 2:09 AM CDT [facility] SPECIFIC GRAVITY (U) 1.008 1.001 - 1.030 05/01/2019 2:09 AM CDT [facility] U PH 5.0 5.0 - 9.0 05/01/2019 2:09 AM CDT [facility] LEUKOCYTES (U) NEGATIVE NEGATIVE 05/01/2019 2:09 AM CDT [facility] NITRITES NEGATIVE NEGATIVE 05/01/2019 2:09 AM CDT [facility] PROTEIN (U) 30(H) <30 MG/DL 05/01/2019 2:09 AM CDT [facility] URINE GLUCOSE >500(A) NEGATIVE MG/DL 05/01/2019 2:09 AM CDT [facility] KETONES MG/DL (U) NEGATIVE NEGATIVE MG/DL 05/01/2019 2:09 AM CDT [facility] UROBILINOGEN NEGATIVE NEGATIVE MG/DL 05/01/2019 2:09 AM CDT [facility] BILIRUBIN (U) NEGATIVE NEGATIVE MG/DL 05/01/2019 2:09 AM CDT [facility] BLOOD (U) NEGATIVE NEGATIVE 05/01/2019 2:09 AM CDT [facility] CULTURE & SENSITIVITY INDICATED? CULTURE IS NOT INDICATED 05/01/2019 2:09 AM CDT [facility] SQUAMOUS EPITHELIALS MANY /LPF 05/01/2019 2:09 AM CDT [facility] HYALINE CASTS FEW /LPF 05/01/2019 2:09 AM CDT [facility] WBC/HPF 2 <6 /HPF 05/01/2019 2:09 AM CDT [facility] RBC/HPF 1 <6 /HPF 05/01/2019 2:09 AM CDT [facility] BACTERIA (U) FEW(A) NONE /HPF 05/01/2019 2:09 AM CDT [facility] URINE SPECIMEN OBTAINED BY CLEAN CATCH PROCEDURE / Unknown 05/01/2019 1:59 AM CDT us Kvng Lewis MD URINE ORDERABLES Final R esult [facility] [address] [place] [address], [place] [phone] * (ABNORMAL) COMPREHENSIVE METABOLIC PANEL (05/01/2019 1:48 AM CDT) GLUCOSE 253(H) 70 - 99 MG/DL 05/01/2019 2:19 AM CDT [facility] BUN 33(H) 7 - 18 MG/DL 05/01/2019 2:19 AM T [facility] CREATININE S/P/B 1.34(H) 0.55 - 1.02 MG/DL 05/01/2019 2:19 AM CDT [facility] SODIUM S/P/B 136 136 - 145 MMOL/L 05/01/2019 2:19 AM CDT [facility] POTASSIUM S/P/B 4.4 3.5 - 5.1 MMOL/L 05/01/2019 2:19 AM T [facility] CHLORIDE S/P/B 106 100 - 108 MMOL/L 05/01/2019 2:19 AM CDT [facility] CO2 24.2 21 - 32 MMOL/L 05/01/2019 2:19 AM T [facility] CALCIUM S/P/B 9.3 8.5 - 10.1 MG/DL 05/01/2019 2:19 AM T [facility] BILIRUBIN TOTAL S/P/B 0.2 0.2 - 1.2 MG/DL 05/01/2019 2:19 AM T [facility] Comment: THIS ASSAY IS NOT RECOMMENDED FOR PATIENTS UNDERGOING TREATMENT WITH ELTROMBOPAG DUE TO THE POTENTIAL FOR FALSELY ELEVATED RESULTS. TOTAL PROTEIN S/P/B 8.8(H) 6.4 - 8.2 G/DL 05/01/2019 2:19 AM CDT [facility] ALBUMIN S/P/B 3.5 3.4 - 5.0 G/DL 05/01/2019 2:19 AM CDT [facility] AST 17 15 - 37 U/L 05/01/2019 2:19 AM CDT [facility] ALT 31 14 - 55 U/L 05/01/2019 2:19 AM CDT [facility] ALKALINE PHOSPHATASE S/P/B 136 50 - 136 U/L 05/01/2019 2:19 AM CDT [facility] ANION GAP 5.8 5 - 15 MMOL/L 05/01/2019 2:19 AM CDT [facility] BUN CREATININE RATIO 24.6 6 - 26 05/01/2019 2:19 AM CDT [facility] A/G RATIO 0.7(L) 1.0 - 2.0 RATIO 05/01/2019 2:19 AM CDT [facility] EGFR NON-AFR. AMER. 47(L) >90 ML/MIN/1.7 3 M2 05/01/2019 2:19 AM CDT [facility] EGFR AFR. AMER. 54(L) >90 ML/MIN/1.7 3 M2 05/01/2019 2:19 AM CDT [facility] Comment: NOTE: eGFR is not calculated for patients <18 years of age. This is an estimated GFR (CKD EPI) and should not be used for calculating drug doses. 05/01/2019 1:48 AM CDT Kvng Lewis MD LABORATORY Final Re sult [facility] [address] [place] [address], * (ABNORMAL) CBC W/DIFF AUTOMATED (05/01/2019 1:48 AM CDT) WBC 9.3 4.5 - 11.0 x10'3/uL 05/01/2019 1:57 AM CDT [facility] RBC 3.90(L) 4.20 - 5.40 x10'6/uL 05/01/2019 1:57 AM CDT [facility] HGB 11.9(L) 12.0 - 16.0 G/DL 05/01/2019 1:57 AM CDT [facility] HCT 35.2(L) 38.0 - 48.0 % 05/01/2019 1:57 AM CDT [facility] MCV 90.3 80.0 - 94.0 FL 05/01/2019 1:57 AM CDT [facility] MCH 30.5 27.0 - 31.0 PG 05/01/2019 1:57 AM CDT [facility] MCHC 33.8 32.0 - 36.0 G/DL 05/01/2019 1:57 AM T [facility] RDW 12.7 11.5 - 14.5 % 05/01/2019 1:57 AM CDT [facility] PLT 197 130 - 400 x10'3/uL 05/01/2019 1:57 AM CDT [facility] MPV 11.1 9.3 - 12.2 FL 05/01/2019 1:57 AM CDT [facility] DIFFERENTIAL TYPE AUTOMATED DIFFERENTIAL 05/01/2019 1:57 AM CDT [facility] NEUTROPHILS % 56.1 % 05/01/2019 1:57 AM CDT [facility] LYMPHOCYTES % 36.9 % 05/01/2019 1:57 AM CDT [facility] MONOCYTES % 4.7 % 05/01/2019 1:57 AM CDT [facility] EOSINOPHILS 1.4 % 05/01/2019 1:57 AM CDT [facility] BASOPHILS 0.8 % 05/01/2019 1:57 AM CDT [facility] IMMATURE GRANS % 0.1 % 05/01/19 20 1:57 AM CDT [facility] ABS. NEUTROPHILS TOTAL 5.21 1.80 - 7.70 x10'3/uL 05/01/2019 1:57 AM CDT [facility] ABS. LYMPHOCYTES 3.42 1.00 - 4.80 x10'3/uL 05/01/2019 1:57 AM CDT [facility] ABS. MONOCYTES 0.44 0.24 - 0.86 x10'3/uL 05/01/2019 1:57 AM CDT [facility] ABS. EOSINOPHILS 0.13 0.04 - 0.36 x10'3/uL 05/01/2019 1:57 AM CDT [facility] ABS. BASOPHILS 0.07 0.01 - 0.08 x10'3/uL 05/01/2019 1:57 AM CDT [facility] ABS. IMMATURE GRANULOCYTES 0.01 0.00 - 0.49 x10'3/uL 05/01/2019 1:57 AM CDT [facility] 05/01/2019 1:48 AM CDT Kvng Lewis MD LABORATORY Final Re sult [facility] [address] [place] [address], documented in this encounter Visit Diagnoses Diagnosis Cervical mass- Primary Other specified noninflammatory disorder of cervix documented in this encounter Administered Medications Inactive Administered Medications - up to 3 most recent administrations Medication Order MAR Action Action Date Dose Rate Site hydrocodone-acetaminophen (NORCO) 5-325 MG tablet 1 tablet 1 tablet, Oral, Once, 1 dose, On Viky 05/01/19 at 0345, Maximum dose of acetaminophen is 4000 mg from all sources in 24 hours. Given 05/01/2019 3:44 AM CDT 1 tablet iopamidol (ISOVUE-370) 76 % injection 100 mL 100 mL, Intravenous, IMG once as needed, Contrast, 1 dose, Starting on Viky 05/01/19 at 0320, Until Viky 05/01/19 at 0320 Given 05/01/2019 3:20 AM CDT 100 mLs ketorolac (TORADOL) injection 30 mg 30 mg, Intravenous, Once, 1 dose, On Viky 05/01/19 at 0145, For IV administration, give over 15 seconds. Given 05/01/2019 1:57 AM CDT 30 mg metoprolol tartrate (LOPRESSOR) tablet 50 mg 50 mg, Oral, Once, 1 dose, On Viky 05/01/19 at 0145 Given 05/01/2019 1:56 AM CDT 50 mg documented in this encounter Active and Recently Administered Medications Times are shown in CDT. Scheduled Medication Order 04/29/2019 04/30/2019 05/01/2019 hydrocodone-acetaminophen (NORCO) 5-325 MG tablet 1 tablet (COMPLETED) 1 tablet, Oral, Once, 1 dose, On Viky 05/01/19 at 0345, Maximum dose of acetaminophen is 4000 mg from all sources in 24 hours. 0344 (Given - Provid er: Milka Barker RN) ketorolac (TORADOL) injection 30 mg (COMPLETED) 30 mg, Intravenous, Once, 1 dose, On Viky 05/01/19 at 0145, For IV administration, give over 15 seconds. 0157 (Given - Provid er: Erica Juarez RN) metoprolol tartrate (LOPRESSOR) tablet 50 mg (COMPLETED) 50 mg, Oral, Once, 1 dose, On Viky 05/01/19 at 0145 0156 (Given - Provid er: Erica Juarez RN) PRN Medication Order 04/29/2019 04/30/2019 05/01/2019 iopamidol ([id number]-370) 76 % injection 100 mL (COMPLETED) 100 mL, Intravenous, IMG once as needed, Contrast, 1 dose, Starting on Viky 05/01/19 at 0320, Until Viky 05/01/19 at 0320 0320 (Given - Provid er: Silvino Neff RTR) documented in this encounter Care Teams Small Animal Caretaker Relationship Specialty Start Date End Date Jarred Rod MD PCP - General FAMILY PRACTICE 07/21/15 09/30/20 documented as of this encounter
--- OUTSIDE RECORDS SUMMARY | 2024-03-02 22:32 | XMS_ITS | Encounter Summary ---
Author Organization [facility] Address [address] [place] [address]. [place], [place] [address] [place] [address] Care Team Providers Care Net Software Developer Name Role Phone Jarred Rod MD Primary Care Provider Unav ailable Shira Shi PA-C Primary Care Provider +1- [phone] Jarred Rod MD Primary Care Provider Unav ailable Colton SILVEIRA MD, Abiodun L Primary Care Provider Jarred Rod MD Primary Care Provider Unav ailable Reason for Visit * Reason Comments CT (SCAN) Encounter Details Date Type Department Care Team (Latest Contact Info) Description 03/31/2018 Scan HEALTH INFO SRVCS Scanned, Documents CT [...] COVID-19? No / Unsure 01/24/2021 11:10 AM PHYSICIST ASTROPHYSICS documented as of this encounter Functional Status [...] Contact Info) Description 03/14/2024 11:45 AM PHYSICIST ASTROPHYSICS Office Visit [facility] [phone] Marvin Mckeon MD [facility] [address] [place] [address] 03/20/2024 11:30 AM PHYSICIST ASTROPHYSICS Office Visit [facility] Family Medicine - [place] 100 [place] [phone] Abiodun Segura II, MD 100 [place], [place] [phone] documented as of this encounter Procedures Procedure Name Priority Date/Time Associated Diagnosis Comments CT GENERIC 03/31/2018 documented in this encounter Results * CT GENERIC (03/31/2018) Anatomical Region Laterality Modality Other 03/31/2018 Narrative 03/31/2018 Ordered by an unspecified provider. us Documents [...] COVID-19 Confirmed 12/13/2019 12/13/2019 0 12:34 AM PHYSICIST ASTROPHYSICS documented as of this encounter Care Teams Net Software Developer Relationship Specialty Start Date End Date Jarred Rod MD PCP - General FAMILY PRACTICE 07/21/15 09/30/20 Shira Shi PA-C [address] [place] [address] PCP - General PHYSICIAN FUR WEIGHER 10/01/20 11/17/20 Jarred Rod MD [address] [place] [address] 46091 PCP - General FAMILY PRACTICE 11/18/20 12/05/20 Abiodun Segura II, MD [address] [place] [address] PCP - General FAMILY PRACTICE 12/06/20 01/16/21 Jarred Rod MD [address] [place] [address]38 PCP - General FAMILY PRACTICE 01/17/21 03/08/21 documented as of this encounter
--- OUTSIDE RECORDS SUMMARY | 2024-03-02 22:32 | XMS_ITS | Encounter Summary ---
Author Organization [facility] Address [address] [place] [address]. [place], [place] [address] [place] [address] Care Team Providers Care Private Household Worker Name Role Phone Jarred Rod MD Primary Care Provider Unav ailable Shira Shi PA-C Primary Care Provider +1- [phone] Jarred Rod MD Primary Care Provider Unav ailable Colton SILVEIRA MD, Abiodun L Primary Care Provider Jarred Rod MD Primary Care Provider Unav ailable Encounter Details Date Type Department Care Team (Latest Contact Info) Description 06/24/2018 Scan HEALTH INFO SRVCS Scanned, Documents Social [...] COVID-19? No / Unsure 01/24/2021 11:10 AM TURFGRASS TECHNICIAN documented as of this encounter Functional [...] st Contact Info) Description 03/14/2024 11:45 AM TURFGRASS TECHNICIAN Office Visit [facility] [phone] Marvin Mckeon MD Three [facility] [address] [place] [address] [phone] 03/20/2024 11:30 AM TURFGRASS TECHNICIAN Office Visit [facility] Family Medicine - [address] [address] Aibodun Segura II, MD [address] [place] [address] [phone] documented as of this encounter Visit Diagnoses Not on filedocumented in this encounter Additional Health Concerns Infection Onset Date Last Indicated Resolved Time COVID-19 Rule Out 09/22/2019 09/22/2019 09/24/2019 11:13 PM CDT COVID-19 Rule Out 11/02/2019 11/02/2019 11/03/2019 3:22 PM CDT COVID-19 Rule Out 12/13/2019 12/13/2019 12/14/2019 3:06 PM CDT COVID-19 Confirmed 12/13/2019 12/13/2019 0 12:34 AM TURFGRASS TECHNICIAN documented as of this encounter Care Teams Private Household Worker Relationship Specialty Start Date End Date Jarred Rod MD PCP - General FAMILY PRACTICE 07/21/15 09/30/20 Shira Shi, JESUSC [address] [place] [address] PCP - General PHYSICIAN PRESS DEPARTMENT MANAGER 10/01/20 11/17/20 Jarred Rod MD [address] [place] [address] 11857 PCP - General FAMILY PRACTICE 11/18/20 12/05/20 Abiodun Segura II, MD [address] [place] [address] PCP - General FAMILY PRACTICE 12/06/20 01/16/21 Jarred Rod MD [address] [place] [address] PCP - General FAMILY PRACTICE 01/17/21 03/08/21 documented as of this encounter
--- OUTSIDE RECORDS SUMMARY | 2024-03-02 22:32 | XMS_ITS | Encounter Summary ---
Author Organization [facility] Address [address] [place] [address]. [place], [place] [address] [place] [address] Care Team Providers Care Rn Examiner Name Role Phone Jarred Rod MD Primary Care Provider Unav ailable Shira Shi PA-C Primary Care Provider +1- [phone] Jarred Rod MD Primary Care Provider Unav ailable Colton SILVEIRA MD, Abiodun L Primary Care Provider Jarred Rod MD Primary Care Provider Unav ailable Encounter Details Date Type Department Care Team (Latest Contact Info) Description 03/04/2018 Scan HEALTH INFO SRVCS Scanned, Documents Social [...] COVID-19? No / Unsure 01/24/2021 11:10 AM ORE WASHER documented as of this encounter Functional Status [...] st Contact Info) Description 03/14/2024 11:45 AM ORE WASHER Office Visit [facility] [phone] Marvin Mckeon MD Three [facility] [address] [place] [phone] 03/20/2024 11:30 AM ORE WASHER Office Visit [facility] Family Medicine - [address] [address] Abiodun Segura II, MD [address] [place] [address] [phone] documented as of this encounter Visit Diagnoses Not on filedocumented in this encounter Additional Health Concerns Infection Onset Date Last Indicated Resolved Time COVID-19 Rule Out 09/22/2019 09/22/2019 09/24/2019 11:13 PM CDT COVID-19 Rule Out 11/02/2019 11/02/2019 11/03/2019 3:22 PM CDT COVID-19 Rule Out 12/13/2019 12/13/2019 12/14/2019 3:06 PM CDT COVID-19 Confirmed 12/13/2019 12/13/2019 0 12:34 AM ORE WASHER documented as of this encounter Care Teams Rn Examiner Relationship Specialty Start Date End Date Jarred Rod MD PCP - General FAMILY PRACTICE 07/21/15 09/30/20 Shira Shi, JESUSC [address] [place] [address] PCP - General PHYSICIAN SULFIDE HEAD OPERATOR 10/01/20 11/17/20 Jarred Rod MD [address] [place] [address] PCP - General FAMILY PRACTICE 11/18/20 12/05/20 Abiodun Segura II, MD [address] [place] [address] PCP - General FAMILY PRACTICE 12/06/20 01/16/21 Jarred Rod MD [address] [place] [address] PCP - General FAMILY PRACTICE 01/17/21 03/08/21 documented as of this encounter
--- OUTSIDE RECORDS SUMMARY | 2024-03-02 22:32 | XMS_ITS | Encounter Summary ---
Author Organization [facility] Address [address] [place] [address]. [place], [place] [address] [place] [address] Care Team Providers Care Boil Off Worker Name Role Phone Jarred Rod MD Primary Care Provider Unav ailable Shira Shi PA-C Primary Care Provider +1- [phone] Jarred Rod MD Primary Care Provider Unav ailable Colton SILVEIRA MD, Abiodun L Primary Care Provider Jarred Rod MD Primary Care Provider Unav ailable Encounter Details Date Type Department Care Team (Latest Contact Info) Description 04/08/2018 Scan HEALTH INFO SRVCS Scanned, Documents Social [...] COVID-19? No / Unsure 01/24/2021 11:10 AM BAKER BISCUIT documented as of this encounter Functional Status [...] st Contact Info) Description 03/14/2024 11:45 AM BAKER BISCUIT Office Visit [facility] [phone] Marvin Mckeon MD Three [facility] [address] [place] [phone] 03/20/2024 11:30 AM BAKER BISCUIT Office Visit [facility] Family Medicine - [address] [address] Abiodun Segura II, MD [address] [place] [address] [phone] documented as of this encounter Visit Diagnoses Not on filedocumented in this encounter Additional Health Concerns Infection Onset Date Last Indicated Resolved Time COVID-19 Rule Out 09/22/2019 09/22/2019 09/24/2019 11:13 PM CDT COVID-19 Rule Out 11/02/2019 11/02/2019 11/03/2019 3:22 PM CDT COVID-19 Rule Out 12/13/2019 12/13/2019 12/14/2019 3:06 PM CDT COVID-19 Confirmed 12/13/2019 12/13/2019 0 12:34 AM BAKER BISCUIT documented as of this encounter Care Teams Boil Off Worker Relationship Specialty Start Date End Date Jarred Rod MD PCP - General FAMILY PRACTICE 07/21/15 09/30/20 Shira Shi, JESUSC [address] [place] [address] PCP - General PHYSICIAN PATIENT SERVICES TECHNICIAN 10/01/20 11/17/20 Jarred Rod MD [address] [place] [address] PCP - General FAMILY PRACTICE 11/18/20 12/05/20 Abiodun Segura II, MD [address] [place] [address] PCP - General FAMILY PRACTICE 12/06/20 01/16/21 Jarred Rod MD [address] [place] [address] PCP - General FAMILY PRACTICE 01/17/21 03/08/21 documented as of this encounter
--- OUTSIDE RECORDS SUMMARY | 2024-03-02 22:32 | XMS_ITS | Encounter Summary ---
Author Organization [facility] Address [address] [place] [address]. [place], [place] [address] [place] [address] Care Team Providers Care Canvas Cutter Name Role Phone Jarred Rod MD Primary Care Provider Unav ailable Shira Shi PA-C Primary Care Provider +1- [phone] Jarred Rod MD Primary Care Provider Unav ailable Colton SILVEIRA MD, Abiodun L Primary Care Provider Jarred Rdo MD Primary Care Provider Unav ailable Reason for Visit * Reason Comments Image (SCAN) Encounter Details Date Type Department Care Team (Latest Contact Info) Description 07/28/2018 Scan HEALTH INFO SRVCS Scanned, Documents Image [...] COVID-19? No / Unsure 01/24/2021 11:10 AM WOODEN BOX MAKER documented as of this encounter Functional [...] st Contact Info) Description 03/14/2024 11:45 AM WOODEN BOX MAKER Office Visit [facility] [phone] Marvin Mckeon MD Three [facility] [address] [place] [address] 03/20/2024 11:30 AM WOODEN BOX MAKER Office Visit [facility] Family Medicine - [place] 100 [place] [phone] Abiodun Segura II, MD 100 [place], [place] [phone] documented as of this encounter Procedures Procedure Name Priority Date/Time Associated Diagnosis Comments IMAGE GENERIC 07/28/2018 documented in this encounter Results * IMAGE GENERIC (07/28/2018) Anatomical Region Laterality Modality Other 07/28/2018 Narrative 07/28/2018 Ordered by an unspecified provider. us Documents [...] COVID-19 Confirmed 12/13/2019 12/13/2019 0 12:34 AM WOODEN BOX MAKER documented as of this encounter Care Teams Canvas Cutter Relationship Specialty Start Date End Date Jarred Rod MD PCP - General FAMILY PRACTICE 07/21/15 09/30/20 Shira Shi PA-C [address] [place] [address] PCP - General PHYSICIAN HIGHWAY SAFETY ENGINEER 10/01/20 11/17/20 Jarred Rod MD [address] [place] [address] PCP - General FAMILY PRACTICE 11/18/20 12/05/20 Abiodun Segura II, MD [address] [place] [address] PCP - General FAMILY PRACTICE 12/06/20 01/16/21 Jarred Rod MD [address] [place] [address] PCP - General FAMILY PRACTICE 01/17/21 03/08/21 documented as of this encounter
--- OUTSIDE RECORDS SUMMARY | 2024-03-02 22:32 | XMS_ITS | Encounter Summary ---
Author Organization [facility] Address [address] [place] [address]. [place], [place] [address] [place] [address] Care Team Providers Care Engineering Production Worker Name Role Phone Jarred Rod MD Primary Care Provider Unav ailable Shira Shi PA-C Primary Care Provider +1- [phone] Jarred Rod MD Primary Care Provider Unav ailable Colton SILVEIRA MD, Abiodun L Primary Care Provider Jarred Rod MD Primary Care Provider Unav ailable Reason for Visit * Reason Comments Lab (SCAN) Procedure (SCAN) CT (SCAN) Encounter Details Date Type Department Care Team (Late Contact Info) Description 06/08/2018 Scan HEALTH INFO SRVCS Scanned, Documents Lab (SCAN); Procedure (SCAN); CT (SCAN) Social History Tobacco Use [...] COVID-19? No / Unsure 01/24/2021 11:10 AM OUTPATIENT RECEPTIONIST documented as of this encounter Functional Status [...] st Contact Info) Description 03/14/2024 11:45 AM OUTPATIENT RECEPTIONIST Office Visit [facility] [phone] Marvin Mckeon MD [facility] [address] [place] [address] 03/20/2024 11:30 AM OUTPATIENT RECEPTIONIST Office Visit [facility] Family Medicine - [place] 100 [place] [phone] Abiodun Segura II, MD 100 [place] [address] documented as of this encounter Procedures Procedure Name Priority Date/Time Associated Diagnosis Comments CT GENERIC 06/08/2018 OUTSIDE LAB (SCAN ORDER) 06/08/2018 OUTSIDE LAB (SCAN ORDER) 06/08/2018 PROCEDURE GENERIC (SCAN ORDER) 06/08/2018 documented in this encounter Results * PROCEDURE GENERIC (06/08/2018) 06/08/2018 Narrative 06/08/2018 Ordered by an unspecified provider. us Documents Scanned SCANNING Final Result * OUTSIDE LAB (SCAN) (06/08/2018) 06/08/2018 Narrative 06/08/2018 Ordered by an unspecified provider. us Documents Scanned SCANNING Final Result * OUTSIDE LAB (SCAN) (06/08/2018) 06/08/2018 Narrative 06/08/2018 Ordered by an unspecified provider. us Documents Scanned SCANNING Final Result * CT GENERIC (06/08/2018) Anatomical Region Laterality Modality Other 06/08/2018 Narrative 06/08/2018 Ordered by an unspecified provider. us Documents [...] COVID-19 Confirmed 12/13/2019 12/13/2019 0 12:34 AM OUTPATIENT RECEPTIONIST documented as of this encounter Care Teams Engineering Production Worker Relationship Specialty Start Date End Date Jarred Rod MD PCP - General FAMILY PRACTICE 07/21/15 09/30/20 Shira Shi PA-C [address] [place] [address] PCP - General PHYSICIAN SAMPLE BOOK MAKER 10/01/20 11/17/20 Jarred Rod MD [address] [place] [address] PCP - General FAMILY PRACTICE 11/18/20 12/05/20 Abiodun Segura II, MD 100 [place] [address] PCP - General FAMILY PRACTICE 12/06/20 01/16/21 Jarred Rod MD 100 [place] [address] PCP - General FAMILY PRACTICE 01/17/21 03/08/21 documented as of this encounter
--- OUTSIDE RECORDS SUMMARY | 2024-03-02 22:32 | XMS_ITS | Encounter Summary ---
Author Organization [facility] Address [address] [place] [address]. [place], [place] [address] [place] [address] Care Team Providers Care Sales Expert Home Theater Name Role Phone Jarred Rod MD Primary Care Provider Unav ailable Shira Shi PA-C Primary Care Provider +1- [phone] Jarred Rod MD Primary Care Provider Unav ailable Colton SILVEIRA MD, Abiodun L Primary Care Provider Jarred Rod MD Primary Care Provider Unav ailable Encounter Details Date Type Department Care Team (Latest Contact Info) Description 04/08/2019 Scan HEALTH INFO SRVCS Scanned, Documents Social [...] COVID-19? No / Unsure 01/24/2021 11:10 AM SPEECH SCIENTIST documented as of this encounter Functional [...] st Contact Info) Description 03/14/2024 11:45 AM SPEECH SCIENTIST Office Visit [facility] [phone] Marvin Mckeon MD Three [facility] [address] [place] [phone] 03/20/2024 11:30 AM SPEECH SCIENTIST Office Visit [facility] Family Medicine - [address] [phone] Abiodun Segura II, MD [address] [place] [address] [phone] documented as of this encounter Visit Diagnoses Not on filedocumented in this encounter Additional Health Concerns Infection Onset Date Last Indicated Resolved Time COVID-19 Rule Out 09/22/2019 09/22/2019 09/24/2019 11:13 PM CDT COVID-19 Rule Out 11/02/2019 11/02/2019 11/03/2019 3:22 PM CDT COVID-19 Rule Out 12/13/2019 12/13/2019 12/14/2019 3:06 PM CDT COVID-19 Confirmed 12/13/2019 12/13/2019 0 12:34 AM SPEECH SCIENTIST documented as of this encounter Care Teams Sales Expert Home Theater Relationship Specialty Start Date End Date Jarred Rod MD PCP - General FAMILY PRACTICE 07/21/15 09/30/20 Shira Shi, JESUSC [address] [place] [address] PCP - General PHYSICIAN KENO WRITER / RUNNER 10/01/20 11/17/20 Jarred Rod MD [address] [place] [address] PCP - General FAMILY PRACTICE 11/18/20 12/05/20 Aibodun Segura II, MD [address] [place] [address] PCP - General FAMILY PRACTICE 12/06/20 01/16/21 Jarred Rod MD [address] [place] [address] PCP - General FAMILY PRACTICE 01/17/21 03/08/21 documented as of this encounter
--- OUTSIDE RECORDS SUMMARY | 2024-03-02 22:32 | XMS_ITS | Encounter Summary ---
Author Organization [facility] Address [address] [place] [address]. [place], [place] [address] [place] [address] Care Team Providers Care Applications Administrator Name Role Phone Jarred Rod MD Primary Care Provider Unav ailable Shira Shi PA-C Primary Care Provider +1- [phone] Jarred Rod MD Primary Care Provider Unav ailable Colton SILVEIRA MD, Abiodun L Primary Care Provider Jarred Rod MD Primary Care Provider Unav ailable Encounter Details Date Type Department Care Team (Latest Contact Info) Description 06/14/2018 Scan HEALTH INFO SRVCS Scanned, Documents Social [...] COVID-19? No / Unsure 01/24/2021 11:10 AM FRUIT RAISER documented as of this encounter Functional [...] st Contact Info) Description 03/14/2024 11:45 AM FRUIT RAISER Office Visit [facility] [address] Marvin Mckeon MD Three [facility] [address] [place] [phone] 03/20/2024 11:30 AM FRUIT RAISER Office Visit [facility] Family Medicine - [address] [address] Abiodun Segura II, MD [address] [place] [phone] documented as of this encounter Visit Diagnoses Not on filedocumented in this encounter Additional Health Concerns Infection Onset Date Last Indicated Resolved Time COVID-19 Rule Out 09/22/2019 09/22/2019 09/24/2019 11:13 PM CDT COVID-19 Rule Out 11/02/2019 11/02/2019 11/03/2019 3:22 PM CDT COVID-19 Rule Out 12/13/2019 12/13/2019 12/14/2019 3:06 PM CDT COVID-19 Confirmed 12/13/2019 12/13/2019 0 12:34 AM FRUIT RAISER documented as of this encounter Care Teams Applications Administrator Relationship Specialty Start Date End Date Jarred Rod MD PCP - General FAMILY PRACTICE 07/21/15 09/30/20 Shira Shi, JESUSC [address] [place] [address] PCP - General PHYSICIAN OPERATIONS STAFF SPECIALIST SECURITY 10/01/20 11/17/20 Jarred Rod MD [address] [place] [address] PCP - General FAMILY PRACTICE 11/18/20 12/05/20 Abiodun Segura II, MD [address] [place] [address] PCP - General FAMILY PRACTICE 12/06/20 01/16/21 Jarred Rod MD [address] [place] [address] PCP - General FAMILY PRACTICE 01/17/21 03/08/21 documented as of this encounter
--- OUTSIDE RECORDS SUMMARY | 2024-03-02 22:32 | XMS_ITS | Encounter Summary ---
Author Organization [facility] Address [address] [place] [address]. [place] [address] [place] [address] Care Team Providers Care System Trainer Name Role Phone Jarred Rod MD Primary Care Provider Unav ailable Reason for Referral * Imaging (Emergency) - Closed Specialty Diagnoses / Procedures Referred By Lyla chaney Referred To Contact RADIOLOGY Procedures CT ABD+PEL W IV CON ONLY Jing Mancilla PA-C [address] [address] Phone: tel: fax: Referral ID Status Reason Start Date Expiration Date Visits Re quested Visits Authorized [id number] Closed 02/15/2019 03/18/2020 1 1 K VEHICLE REPAIRER Reason for Visit * Reason Comments Vomiting Diarrhea Encounter Details Date Type Department Care Team (Late st Contact Info) Description 02/15/2019 2:45 PM TRACK VEHICLE REPAIRER - 02/15/2019 10:22 PM TRACK VEHICLE REPAIRER Emergency [facility] Emergency Room [address] [place], [place] [id number] Christ Coombs MD [address] [place] [address] Vomiting; Diarrhea Discharge Disposition: Home or Self Care (Routine [...] Sign Reading Time Taken Comments Blood Pressure 155/92 02/15/2019 10:15 PM TRACK VEHICLE REPAIRER Pulse 61 02/15/2019 2:39 PM TRACK VEHICLE REPAIRER Temperature 36.7 ??C (98.1 ??F) 02/15/2019 9:15 PM CS T Respiratory Rate 18 02/15/2019 9:15 PM TRACK VEHICLE REPAIRER Oxygen Saturation 97% 02/15/2019 9:15 PM TRACK VEHICLE REPAIRER Inhaled Oxygen Concentration - - Weight 88.5 kg (195 lb) 02/15/2019 2:39 PM TRACK VEHICLE REPAIRER Height 167.6 cm (5' 6 ) 02/15/2019 2:39 PM TRACK VEHICLE REPAIRER Body Mass Index 31.47 02/15/2019 2:39 PM TRACK VEHICLE REPAIRER documented in this encounter Discharge Instructions * Discharge Instructions* Christ Coombs MD - 02/15/2019 10:07 PM TRACK VEHICLE REPAIRER Please follow a clear liquid diet (see attached instructions) for 3 days. After that, please reintroduce solid foods with a diet of bananas, rice, applesauce, and toast (known as the BRAT diet) for 3days. If at the end of this 6-day period you are still experiencing significant nausea, vomiting, and/or diarrhea, please return to the emergency department for further evaluation. Emergency Departments (ED) provide medical screening exams and initial stabilizing treatment of emergency medical conditions. Medicine is an inexact science and many conditions cannot be diagnosed orcompletely treated during a single ED visit. Your treating healthcare provider(s) today feel your condition has been stabilized so further care as an outpatient is reasonable. Emergency care does notsubstitute for complete, ongoing, or follow-up care by your primary care physician or personnel consultant. Your medication list was reviewed prior to treatment, [...] such as many narcotic drug combinations and [id number] cold medicines. Your feedback is important to us. Please fill out the survey you will get in the mail. We need yourinput to give you the best care possible! With your feedback we??ll know where we need to focus ourefforts to provide very good service to our patients! K VEHICLE REPAIRER * Attachments The following attachments cannot be sent through Care Everywhere. * Viral Syndrome Discharge Instructions (American) * Clear Liquid Diet (American) * Sick Day Management for Diabetics (American) * Nausea and Vomiting Discharge Instructions, Adult (American) * Diarrhea in Adolescents and Adults (American) documented in this encounter Medications at Time of Discharge aspirin EC 81 MG tablet Take 81 mg by mouth daily. 01/22/2019 0 diclofenac EC 75 MG tablet Take 1 tablet (75 mg total) by mouth 2 (two) times daily as needed (Pain. Please take with meals.). 30 tablet 02/15/2019 0 HUMALOG MIX 75/25 (75-25) 100 UNIT/ML [...] daily. 0 documented as of this encounter Progress Notes * Baldomero Albrecht MD - 02/15/2019 10:05 PM CST Called from the ED about this patient who is in for chest pain, nausea/vomiting, and right flank pain. CT showed hydronephrotic right kidney and some sort of adnexal mass/calcification/fibrosis. I reviewed CTs going back to 2005 and the appearance of the right kidney is totally unchanged over that time. She has had NM renal scans with right T 1/2 <20 minutes going back over ten years, at a time when the right kidney has the same appearance as it does now. Creat over the past few years has fluctuated but has been 1.3 in 01/2016 and 1.2 in 01/2017. Currently 1.2. Urinalysis has no evidence of infection and no RBCs. Urologically, I think she can follow up this week in clinic to discuss another renal scan. She may benefit from a robotic ureterolysis. K VEHICLE REPAIRER documented in this encounter ED Notes * Christ Coombs MD - 02/15/2019 9:59 PM CST Chief Complaint Chief Complaint Patient presents with ??? Vomiting ??? Diarrhea History of Present Illness The patient is an extremely pleasant 48-year-old female examined emergency department in bed #20. She presents today complaining of stomach pain, nausea, vomiting, and diarrhea. Throughout the day, this is extended to include some chest pain, shortness of breath, dizziness, and body aches. Symptomsbegan this morning. No clear palliative or provoking factors identified. The patient's nausea was refractory to home use of Zofran. Quality is as described above. Radiation is as described above. Severity is moderate. Time course is gradual in onset and constant since onset. Medical History ALLERGIES: Allergies Allergen Reactions ??? Amoxicillin Rash ??? Penicillins Rash MEDICATIONS: Prior to Admission medications Medication Sig Start Date End Date Taking? Authorizing Provider diclofenac EC 75 MG tablet Take 1 tablet (75 mg total) by mouth 2 (two) times daily as needed (Pain. Please take with meals.). 02/15/19 Yes Christ Coombs MD ondansetron 4 MG disintegrating tablet Take 1 tablet (4 mg total) by mouth every 4 (four) hours as needed for Nausea. 02/15/19 Yes Christ Coombs MD HUMALOG MIX 75/25 (75-25) 100 UNIT/ML [...] REVIEW OF SYSTEMS: The patient denies fevers, complains of chills, or sweats. Complains of nausea, vomiting, and diarrhea, denies constipation, complains of abdominal pain. Complains of chest pain, shortness of breath, and dyspnea on exertion, denies palpitations. Denies headache, loss of consciousness, or seizures. Denies dysuria or hematuria. Ten systems reviewed and negative except as described above or in the HPI. Physical Exam Filed Vitals: 02/15/19 1439 02/15/19 1845 02/15/19 2115 BP: (!) 136/94 (!) 160/85 Pulse: 61 Resp: 18 Temp: 97.5 ??F (36.4 ??C) 98.1 ??F (36.7 ??C) TempSrc: Temporal Oral SpO2: 100% 96% 97% Weight: 88.5 kg (195 lb) Height: 5' 6 (1.676 m) Physical Exam Diagnostic Studies / Procedures ELECTROCARDIOGRAMS: Results for orders placed or performed during the hospital encounter of 02/15/19 ECG [address] [facility] Test Date: 2019-02-15 Pat Name: LENA YOUNGBLOOD Department: Room: [facility] Gender: Female Plateman: PAMELA : 1970 Requested By: JING MANCILLA Order Number: [id number] Reading MD: Measurements Intervals [place] Rate: 99 P: 48 OK: 178 QRS: 19 QRSD: 82 T: -85 QT: 330 QTc: 423 Interpretive Statements SINUS RHYTHM MINIMAL VOLTAGE CRITERIA FOR LVH, CONSIDER NORMAL VARIANT NONSPECIFIC T-WAVE ABNORMALITY Compared to ECG 02/04/2017 12:02:56 No significant changes LABORATORY STUDIES: Results for orders placed or performed during the hospital encounter of 02/15/19 CBC W/DIFF AUTOMATED Result Value Ref Range WBC 14.0 (H) 4.5 - 11.0 x10'3/uL RBC 4.37 4.20 - 5.40 x10'6/uL HGB 13.0 12.0 - 16.0 G/DL HCT 38.2 38.0 - 48.0 % MCV 87.4 80.0 - 94.0 FL MCH 29.7 27.0 - 31.0 PG MCHC 34.0 32.0 - 36.0 G/DL RDW 12.2 11.5 - 14.5 % PLT 319 130 - 400 x10'3/uL MPV 11.1 9.3 - 12.2 FL DIFFERENTIAL TYPE AUTOMATED DIFFERENTIAL NEUTROPHILS 80.4 % LYMPHOCYTES 13.5 % MONOCYTES 4.7 % EOSINOPHILS 0.6 % BASOPHILS 0.3 % IMMATURE GRANS 0.5 % ABS. NEUTROPHILS TOTAL 11.24 (H) 1.80 - 7.70 x10'3/uL ABS. LYMPHOCYTES 1.89 1.00 - 4.80 x10'3/uL ABS. MONOCYTES 0.66 0.24 - 0.86 x10'3/uL ABS. EOSINOPHILS 0.09 0.04 - 0.36 x10'3/uL ABS. BASOPHILS 0.04 0.01 - 0.08 x10'3/uL ABS. IMMATURE GRANULOCYTES 0.07 0.00 - 0.49 x10'3/uL COMPREHENSIVE METABOLIC PANEL Result Value Ref Range GLUCOSE 145 (H) 70 - 99 MG/DL BUN 27 (H) 7 - 18 MG/DL CREATININE 1.21 (H) 0.55 - 1.02 MG/DL SODIUM 137 136 - 145 MMOL/L POTASSIUM 4.0 3.5 - 5.1 MMOL/L CHLORIDE 104 100 - 108 MMOL/L CO2 28.5 21 - 32 MMOL/L CALCIUM 9.8 8.5 - 10.1 MG/DL TOTAL BILIRUBIN 0.5 0.2 - 1.2 MG/DL TOTAL PROTEIN 9.5 (H) 6.4 - 8.2 G/DL ALBUMIN 3.8 3.4 - 5.0 G/DL AST 21 15 - 37 U/L ALT 36 14 - 55 U/L ALK PHOS 133 50 - 136 U/L ANION GAP 4.5 (L) 5 - 15 MMOL/L BUN CREATININE RATIO 22.3 6 - 26 A/G RATIO 0.7 (L) 1.0 - 2.0 RATIO eGFR Non-Afr. Amer. 53 (L) >90 ML/MIN/1.73 M2 eGFR Afr. Amer. 62 (L) >90 ML/MIN/1.73 M2 LIPASE Result Value Ref Range LIPASE 128 73 - 393 UNITS/L TROPONIN, QUANT Result Value Ref Range TROPONIN I <0.015 <0.045 ng/mL. URINALYSIS Result Value Ref Range Specimen Type URINE CLEAN CATCH COLOR YELLOW TRANSPARENCY CLEAR Specific Mark Center (U) 1.014 1.001 - 1.030 U PH 6.0 5.0 - 9.0 LEUKOCYTE ESTERASE NEGATIVE NEGATIVE NITRITES NEGATIVE NEGATIVE PROTEIN, URINE 100 (H) <30 MG/DL URINE GLUCOSE NEGATIVE NEGATIVE MG/DL U KETONES NEGATIVE NEGATIVE MG/DL UROBILINOGEN NEGATIVE NEGATIVE MG/DL Urine Bilirubin NEGATIVE NEGATIVE MG/DL BLOOD NEGATIVE NEGATIVE CULTURE & SENSITIVITY INDICATED? CULTURE IS NOT INDICATED SQUAMOUS EPITHELIALS MANY /LPF MUCUS RARE /LPF WBC/HPF <1 <6 /HPF RBC/HPF <1 <6 /HPF Bedside Blood Glucose Result Value Ref Range WHOLE BLOOD GLUCOSE 84 70 - 100 mg/dL POCT glucose Result Value Ref Range GLUCOSE POC 84 70 - 99 mg/dL INFLUENZA A & B Result Value Ref Range Specimen Type NASOPHARYNGEAL SWAB INFLUENZA A NEGATIVE NEGATIVE INFLUENZA B NEGATIVE NEGATIVE IMAGING STUDIES XR ABD KUB Final Result by User, [id number] (02/15 2010) EXAMINATION: X-RAY ABDOMEN ONE VIEW EXAM TIME: 2001 hours.. COMPARISON: KUB 0739 hours earlier on same date. CT done earlier on same date. HISTORY: Abdominal pain with nausea and diarrhea. Renal contrast surveillance. TECHNIQUE: A supine view of the abdomen is submitted for evaluation. FINDINGS: No dilated segments of small or large bowel. Redemonstration of moderate to marked right pelvocaliectasis, unchanged. No organomegaly or pathologic calcifications. Osseous structures unremarkable. IMPRESSION: Redemonstrated moderate to marked right pelvocaliectasis, unchanged.. Interpreted By: Cem Caballero MD, 02/15/2019 8:08 PM XR ABD KUB Final Result by User, [email or web address] (02/15 8508) EXAMINATION: XR ABD KUB HISTORY: Follow-up abnormal CT, 01/20/2016 DATE: 02/15/2019 5:30 PM COMPARISON: CT, same date TECHNIQUE: Supine AP view of the abdomen FINDINGS: A contrast is seen within the renal collecting systems and ureter, delineating marked dilatation of the right renal collecting system. Only a scant amount of contrast seen in the proximal ureters, with the distal ureters not opacified This does not appear to yield any additional diagnostic information compared to the recent CT, in regards to the etiology of the asymmetric soft tissue fullness in the right-sided pelvis. However the degree of right renal collecting system distention is similar compared to 2016. Left ovarian vein phlebolith noted. IMPRESSION: Dilated right renal collecting system. Interpreted By: Arley Gastelum MD, 02/15/2019 5:[address] ABD+PEL W IV CON ONLY Final Result by User, [id number] (02/15 6702) Procedure(s): CT ABD+PEL W CON Date of service: 02/15/2019 4:39 PM Provided clinical information: 48 years, Female, Abdominal pain, unspecified Nausea, vomiting, diarrhea Procedure and materials: Helical images from superior to the diaphragm to inferior to the pubic symphysis after intravenous contrast. Dose lowering techniques utilized. Sagittal and coronal reconstruction. 100 mL Isovue-370 Comparison studies: December 24, 2018 Observations: CT abdomen and pelvis: Lung Bases: No pleural effusions or consolidations.No nodularity is present in the posterior aspect of the left hemithorax. This is new as compared the prior examination. This is likely inflammatory or infectious in nature. Adrenals:Unremarkable Spleen:Splenic calcifications due to prior granulomatous disease. Gallbladder and Biliary system:No CT evidence of cholelithiasis. No biliary dilatation Pancreas:Unremarkable. Liver:Unremarkable. Kidneys:Persistent right hydronephrosis and right hydroureter is present. As the right ureter courses through the pelvis there is calcification in soft tissue prominence subadjacent to the uterus. This may relate to a focal area of adhesion or narrowing of the right ureter. Nuclear medicine scan with Lasix is recommended. Urological consultation is recommended. I cannot exclude a obstructive collecting fibrotic lesion in the right hemipelvis. Nonobstructing left nephrolithiasis. And abdominal radiograph in 2 and potentially 4 hours may be of further use in evaluating the right ureter. Bowel:Small bowel is not dilated. Appendix is normal. No pericolonic inflammatory changes are present. Aorta and Retroperitoneum:No enlarged lymph nodes. Aorta is not aneurysmal. Pelvic Organs:Small amount of fluid is present within the uterus. At the upper aspect of the uterus on the right there is soft tissue prominence that is present. This may relate to scarring and/or fibrosis at the uterine cornua proximal fallopian tubes. The right ureter courses through this area and this may be the site of obstruction. Left ovary is not definitively visualized. What appears to be the right ovary is slightly lateral and superior to this soft tissue attenuation subadjacent to the uterus. This is best seen on image 110. This soft tissue prominence subadjacent to the uterus measures 1.5 cm x 1.3 cm. Bone/Musculoskeletal: No aggressive osseous lesions. Free fluid: None Additional Findings: other IMPRESSION: Within the right adnexa there is a 1.5 x 1.3 cm cm soft tissue mass that is present somewhat confluence with the uterus. This extends towards the expected location of the fallopian tube and towards the right ovary. The right ureter courses through this area and this may be the site of stenosis/obstruction of the right ureter. Right renal hydronephrosis and hydroureter is present. In light of the findings and recent contrast administration delayed abdominal radiograph at 2 hours and potentially 4 hours may be of further use in this patient to evaluate the right ureter. Alternatively delayed CT may be of use. Small nodular densities posterior aspect the left lower lung likely inflammatory or infectious in etiology as they are new as compared to December 24. Urology consultation is needed. Verbal preliminary given to Jing Mancilla, provider, at time of dictation. Interpreted By: Wilian Cruz MD, 02/15/2019 5:10 PM XR CHEST PORTABLE Final Result by User, [id number] (02/15 8391) EXAM: AP CHEST CLINICAL STATEMENT: chest pain COMPARISON: None available. TIME:02/15/2019 2:53 PM FINDINGS: Heart size is within normal limits. Mediastinum is unremarkable. In the lung parenchyma no acute or focal infiltrates. There is no effusion or free air. Bony elements are intact. IMPRESSION: No acute or focal infiltrates. Interpreted By: Wale Cao MD, 02/15/2019 3:02 PM ED Course / Medical Decision Making I estimate there is LOW risk for EPIGLOTTITIS, PNEUMONIA, MENINGITIS, OR SEPSIS, thus I consider the discharge disposition reasonable. Also, there is no evidence for peritonitis, sepsis, or toxicity.We have discussed the diagnosis and risks, and we agree with discharging home to follow-up with their primary doctor. We also discussed returning to the Emergency Department immediately if new or wors ening symptoms occur. We have discussed the symptoms which are most concerning (e.g., changing or worsening pain, trouble swallowing or breathing, neck stiffness, fever) that necessitate immediate return. I estimate there is LOW risk for ACUTE CORONARY SYNDROME, INTRACRANIAL HEMORRHAGE, MALIGNANT DYSRHYTHMIA, MENINGITIS, PERICARDIAL TAMPONADE, PNEUMOTHORAX, PNEUMONIA, PULMONARY EMBOLISM, SEPSIS, SUBARACHNOID HEMORRHAGE, SUBDURAL HEMATOMA, or STROKE, thus I consider the discharge disposition reasonable. We have discussed the diagnosis and risks, and we agree with discharging home to follow-up with their primary doctor. We also discussed returning to the Emergency Department immediately if new or worsening symptoms occur. We have discussed the symptoms which are most concerning (e.g., changing or worsening pain, weakness, vomiting, fever) that necessitate immediate return. HEART Score equals 3. Discussed all the pertinent/becerril information above including H&P and testing and my diagnosis/differential with Dr. Albrecht of urology who agrees with the assessment and plan and recommends outpatient follow-up as there is no apparent progression of the patient's renal pelvocaliectasis. Clinical Impression Viral syndrome (Primary) Nausea, vomiting, and diarrhea Shortness of breath Atypical chest pain Caliectasis Disposition: Discharge Christ Coombs MD 02/15/192209 K VEHICLE REPAIRER * Jing Mancilla PA-C - 02/15/2019 2:48 PM CST [place], [place] EMERGENCY DEPARTMENT ENCOUNTER Medical Screening Examination 02/15/19 2:52 PM Chief Complaint : Vomiting and Diarrhea HPI : Lena Youngblood is a 48-year-old female who presents to the ED with report of nausea, vomiting and diarrhea that started earlier today. She also reports flank pain, epigastric pain and chest pain. Denies fever or urinary symptoms. Vital Signs: Filed Vitals: 02/15/19 1439 BP: (!) 136/94 Pulse: 61 Resp: 22 Temp: 97.5 ??F (36.4 ??C) TempSrc: Temporal SpO2: 100% Weight: 88.5 kg (195 lb) Height: 5' 6 (1.676 m) Physical exam: A brief physical exam was completed to facilitate/expedite patient care. Plan: Necessary labs/imaging/medications ordered to initiate pt care. Jing Mancilla PA-C 02/15/19 1452 Cosigned by Nicole Jolley MD at 02/15/2019 5:13 PM TRACK VEHICLE REPAIRER K VEHICLE REPAIRER K VEHICLE REPAIRER * Mary Beth Shrestha RN - 02/15/2019 2:41 PM CST Patient to triage with c/o n/v/d that started today. Patient also right flank pain and upper abdominal/epigastric pain. Patient also reports left sided chest wall pain that is a cramping pain that isworse with movement and vomiting. MARY BETH SHRESTHA RN K VEHICLE REPAIRER documented in this encounter Plan of Treatment Upcoming Encounters Date Type Department Care Team (Late st Contact Info) Description 03/14/2024 11:45 AM TRACK VEHICLE REPAIRER Office Visit [facility]-[address] [phone] Marvin Mckeon MD [address] [address] [place] [address] 03/20/2024 11:30 AM TRACK VEHICLE REPAIRER Office Visit [facility] - [place] [address] [place] [id number] Abiodun Segura II, MD [address] [place] [address] documented as of this encounter Procedures Procedure Name Priority Date/Time Associated Diagnosis Comments POCT BEDSIDE BLOOD GLUCOSE STAT 02/15/2019 9:51 PM TRACK VEHICLE REPAIRER POCT GLUCOSE - CORREA DOCKED DEVICE Routine 02/15/2019 9:46 PM TRACK VEHICLE REPAIRER XR ABD KUB STAT 02/15/2019 8:02 PM TRACK VEHICLE REPAIRER XR ABD KUB STAT 02/15/2019 5:46 [address] TR[address]ICLE REPAIRER CT ABD+PEL W CON STAT 02/15/2019 5:02 PM TRACK VEHICLE REPAIRER COMPREHENSIVE METABOLIC PANEL STAT 02/15/2019 3:41 PM TRACK VEHICLE REPAIRER CBC W/DIFF AUTOMATED STAT 02/15/2019 3:41 PM TRACK VEHICLE REPAIRER TROPONIN, QUANT STAT 02/15/2019 3:41 PM TRACK VEHICLE REPAIRER LIPASE STAT 02/15/2019 3:41 PM TRACK VEHICLE REPAIRER INFLUENZA A & B STAT 02/15/2019 3:28 PM TRACK VEHICLE REPAIRER URINALYSIS STAT 02/15/2019 3:28 PM TRACK VEHICLE REPAIRER ECG 12-LEAD STAT 02/15/2019 3:12 PM TRACK VEHICLE REPAIRER XR CHEST PORTABLE STAT 02/15/2019 2:5 9 PM TRACK VEHICLE REPAIRER documented in this encounter Results * Bedside Blood Glucose (02/15/2019 9:51 PM TRACK VEHICLE REPAIRER) GLUCOSE WHOLE BLOOD 84 70 - 100 mg/dL Christ Coombs MD NURSING TREATMENT ORDERABLES - ONCE OR INTERVALS Final Result * POCT glucose (02/15/2019 9:46 PM TRACK VEHICLE REPAIRER) GLUCOSE POC 84 70 - 99 mg/dL 02/15/2019 9:56 PM TRACK VEHICLE REPAIRER [facility] ORDERS INTERFACE 02/15/2019 9:46 PM TRACK VEHICLE REPAIRER hCrist Coombs MD POCT ORDERABLES - DEVICE Final Result [facility] ORD[facility] INTERFACE US * XR ABD KUB (02/15/2019 8:02 PM TRACK VEHICLE REPAIRER) Anatomical Region Laterality Modality Abdomen Fluoroscopy 02/15/2019 8:08 PM TRACK VEHICLE REPAIRER Impressions 02/15/2019 8:09 PM TRACK VEHICLE REPAIRER IMPRESSION: Redemonstrated moderate to marked right pelvocaliectasis, unchanged.. Interpreted By: Cem Caballero MD, 02/15/2019 8:08 PM Narrative 02/15/2019 8:09 PM TRACK VEHICLE REPAIRER EXAMINATION: X-RAY ABDOMEN ONE VIEW EXAM TIME: 2001 hours.. COMPARISON: KUB 0739 hours earlier on same date. CT done earlier on same date. HISTORY: Abdominal pain with nausea and diarrhea. ??Renal contrast surveillance. TECHNIQUE: A supine view of the abdomen is submitted for evaluation. FINDINGS: No dilated segments of small or large bowel. Redemonstration of moderate to marked right pelvocaliectasis, unchanged. No organomegaly or pathologic calcifications. Osseous structures unremarkable. Procedure Note Neel Caballero MD - 02/15/2019 EXAMINATION: X-RAY ABDOMEN ONE VIEW EXAM TIME: 2001 hours.. COMPARISON: KUB 0739 hours earlier on same date. CT done earlier on same date. HISTORY: Abdominal pain with nausea and diarrhea. Renal contrast surveillance. TECHNIQUE: A supine view of the abdomen is submitted for evaluation. FINDINGS: No dilated segments of small or large bowel. Redemonstration of moderate to marked right pelvocaliectasis, unchanged. No organomegaly or pathologic calcifications. Osseous structures unremarkable. IMPRESSION: Redemonstrated moderate to marked right pelvocaliectasis, unchanged.. Interpreted By: Cem Caballero MD, 02/15/2019 8:08 PM Christ Coombs MD GENERAL IMAGING Final Result * XR ABD KUB (02/15/2019 5:46 PM TRACK VEHICLE REPAIRER) Anatomical Region Laterality Modality Abdomen Fluoroscopy 02/15/2019 5:49 PM TRACK VEHICLE REPAIRER Impressions 02/15/2019 5:54 PM TRACK VEHICLE REPAIRER IMPRESSION: Dilated right renal collecting system. Interpreted By: Arley Gastelum MD, 02/15/2019 5:49 PM Narrative 02/15/2019 5:54 PM TRACK VEHICLE REPAIRER EXAMINATION: XR ABD KUB HISTORY: Follow-up abnormal CT, 01/20/2016 DATE: 02/15/2019 5:30 PM COMPARISON: CT, same date TECHNIQUE: Supine AP view of the abdomen FINDINGS: A contrast is seen within the renal collecting systems and ureter, delineating marked dilatation of the right renal collecting system. ??Only a scant amount of contrast seen in the proximal ureters, with the distal ureters not opacified This does not appear to yield any additional diagnostic information compared to the recent CT, in regards to the etiology of the asymmetric soft tissue fullness in the right-sided pelvis. ??However the degree of right renal collecting system distention is similar compared to 2016. ??Left ovarian vein phlebolith noted. Procedure Note Arley Gastelum MD - 02/15/2019 EXAMINATION: XR ABD KUB HISTORY: Follow-up abnormal CT, 01/20/2016 DATE: 02/15/2019 5:30 PM COMPARISON: CT, same date TECHNIQUE: Supine AP view of the abdomen FINDINGS: A contrast is seen within the renal collecting systems andureter, delineating marked dilatation of the right renal collectingsystem. Only a scant amount of contrast seen in the proximal ureters,with the distal ureters not opacified This does not appear to yield anyadditional diagnostic information compared to the recent CT, in regards tothe etiology of the asymmetric soft tissue fullness in the right-sidedpelvis. However the degree of right renal collecting system distention issimilar compared to 2016. Left ovarian vein phlebolith noted. IMPRESSION: Dilated right renal collecting system. Interpreted By: Arley Gastelum MD, 02/15/2019 5:49 PM us Jing Mancilla PA-Angelique GENERAL IMAGING Final R esult * CT ABD+PEL W IV CON ONLY (02/15/2019 5:02 PM TRACK VEHICLE REPAIRER) Anatomical Region Laterality Modality Abdomen Computed Tomogra phy 02/15/2019 5:10 PM TRACK VEHICLE REPAIRER Impressions 02/15/2019 5:26 PM TRACK VEHICLE REPAIRER IMPRESSION: Within the right adnexa there is a 1.5 x 1.3 cm cm soft tissue mass that is present somewhat confluence with the uterus. ??This extends towards the expected location of the fallopian tube and towards the right ovary. ??The right ureter courses through this area and this may be the site of stenosis/obstruction of the right ureter. ??Right renal hydronephrosis and hydroureter is present. ??In light of the findings and recent contrast administration delayed abdominal radiograph at 2 hours and potentially 4 hours may be of further use in this patient to evaluate the right ureter. ??Alternatively delayed CT may be of use. Small nodular densities posterior aspect the left lower lung likely inflammatory or infectious in etiology as they are new as compared to December 24. Urology consultation is needed. Verbal preliminary given to Jing Mancilla, provider, at time of dictation. Interpreted By: Wilian Cruz MD, 02/15/2019 5:10 PM Narrative 02/15/2019 5:26 PM TRACK VEHICLE REPAIRER Procedure(s): CT ABD+PEL W CON Date of service: 02/15/2019 4:39 PM Provided clinical information: 48 years, Female, Abdominal pain, unspecified Nausea, vomiting, diarrhea Procedure and materials: Helical images from superior to the diaphragm to inferior to the pubic symphysis after intravenous contrast. ??Dose lowering techniques utilized. ??Sagittal and coronal reconstruction. ??100 mL Isovue-370 Comparison studies: December 24, 2018 Observations: ?? CT abdomen and pelvis: Lung Bases: No pleural effusions or consolidations.No nodularity is present in the posterior aspect of the left hemithorax. ??This is new as compared the prior examination. ??This is likely inflammatory or infectious in nature. Adrenals:Unremarkable Spleen:Splenic calcifications due to prior granulomatous disease. Gallbladder and Biliary system:No CT evidence of cholelithiasis. No biliary dilatation Pancreas:Unremarkable. Liver:Unremarkable. Kidneys:Persistent right hydronephrosis and right hydroureter is present. ??As the right ureter courses through the pelvis there is calcification in soft tissue prominence subadjacent to the uterus. ??This may relate to a focal area of adhesion or narrowing of the right ureter. ??Nuclear medicine scan with Lasix is recommended. ??Urological consultation is recommended. ??I cannot exclude a obstructive collecting fibrotic lesion in the right hemipelvis. ??Nonobstructing left nephrolithiasis. ??And abdominal radiograph in 2 and potentially 4 hours may be of further use in evaluating the right ureter. Bowel:Small bowel is not dilated. ??Appendix is normal. ??No pericolonic inflammatory changes are present. Aorta and Retroperitoneum:No enlarged lymph nodes. Aorta is not aneurysmal. Pelvic Organs:Small amount of fluid is present within the uterus. ??At the upper aspect of the uterus on the right there is soft tissue prominence that is present. ??This may relate to scarring and/or fibrosis at the uterine cornua proximal fallopian tubes. ??The right ureter courses through this area and this may be the site of obstruction. ??Left ovary is not definitively visualized. ??What appears to be the right ovary is slightly lateral and superior to this soft tissue attenuation subadjacent to the uterus. ??This is best seen on image 110. ??This soft tissue prominence subadjacent to the uterus measures 1.5 cm x 1.3 cm. Bone/Musculoskeletal: No aggressive osseous lesions. Free fluid: ??None Additional Findings: other Procedure Note Wilian Cruz MD - 02/15/2019 Procedure(s): CT ABD+PEL W CON Date of service: 02/15/2019 4:39 PM Provided clinical information: 48 years, Female, Abdominal pain,unspecified Nausea, vomiting, diarrhea Procedure and materials: Helical images from superior to the diaphragm toinferior to the pubic symphysis after intravenous contrast. Dose loweringtechniques utilized. Sagittal and coronal reconstruction. 100 mLIsovue-370 Comparison studies: December 24, 2018 Observations: CT abdomen and pelvis: Lung Bases: No pleural effusions or consolidations.No nodularity ispresent in the posterior aspect of the left hemithorax. This is new ascompared the prior examination. This is likely inflammatory or infectiousin nature. Adrenals:Unremarkable Spleen:Splenic calcifications due to prior granulomatous disease. Gallbladder and Biliary system:No CT evidence of cholelithiasis. Nobiliary dilatation Pancreas:Unremarkable. Liver:Unremarkable. Kidneys:Persistent right hydronephrosis and right hydroureter is present.As the right ureter courses through the pelvis there is calcification insoft tissue prominence subadjacent to the uterus. This may relate to afocal area of adhesion or narrowing of the right ureter. Nuclear medicinescan with Lasix is recommended. Urological consultation is recommended.I cannot exclude a obstructive collecting fibrotic lesion in the righthemipelvis. Nonobstructing left nephrolithiasis. And abdominalradiograph in 2 and potentially 4 hours may be of further use inevaluating the right ureter. Bowel:Small bowel is not dilated. Appendix is normal. No pericolonicinflammatory changes are present. Aorta and Retroperitoneum:No enlarged lymph nodes. Aorta is notaneurysmal. Pelvic Organs:Small amount of fluid is present within the uterus. At theupper aspect of the uterus on the right there is soft tissue prominencethat is present. This may relate to scarring and/or fibrosis at theuterine cornua proximal fallopian tubes. The right ureter courses throughthis area and this may be the site of obstruction. Left ovary is notdefinitively visualized. What appears to be the right ovary is slightlylateral and superior to this soft tissue attenuation subadjacent to theuterus. This is best seen on image 110. This soft tissue prominencesubadjacent to the uterus measures 1.5 cm x 1.3 cm. Bone/Musculoskeletal: No aggressive osseous lesions. Free fluid: None Additional Findings: other IMPRESSION: Within the right adnexa there is a 1.5 x 1.3 cm cm soft tissue mass thatis present somewhat confluence with the uterus. This extends towards theexpected location of the fallopian tube and towards the right ovary. Theright ureter courses through this area and this may be the site ofstenosis/obstruction of the right ureter. Right renal hydronephrosis andhydroureter is present. In light of the findings and recent contrastadministration delayed abdominal radiograph at 2 hours and potentially 4hours may be of further use in this patient to evaluate the right ureter.Alternatively delayed CT may be of use. Small nodular densities posterior aspect the left lower lung likelyinflammatory or infectious in etiology as they are new as compared toNovember 5. Urology consultation is needed. Verbal preliminary given to Jing Mancilla, provider, at time ofdictation. Interpreted By: Wilian Cruz MD, 02/15/2019 5:10 PM Jing Mancilla PA-C CT Final R esult * TROPONIN, QUANT (02/15/2019 3:41 PM TRACK VEHICLE REPAIRER) [facility] TROPONIN I <0.015 <0.045 ng/mL. 02/15/2019 4:18 PM TRACK VEHICLE REPAIRER [facility] Comment: HIGH DOSES OF BIOTIN MAY INTERFERE WITH THIS TEST RESULT. CORRELATION TO CLINICAL HISTORY AND PRESENTATION RECOMMENDED. 02/15/2019 3:41 PM TRACK VEHICLE REPAIRER Jing Mancilla PA-C LABORATORY Final R esult [facility] [address] [place] [address], [place] [phone] * LIPASE (02/15/2019 3:41 PM TRACK VEHICLE REPAIRER) Pathologist [facility] LIPASE 128 73 - 393 UNITS/L 02/15/2019 4:18 PM [facility] 02/15/2019 3:41 PM TRACK VEHICLE REPAIRER Jing Mancilla PA-C LABORATORY Final R esult [facility] [address] [place] [address], * (ABNORMAL) COMPREHENSIVE METABOLIC PANEL (02/15/2019 3:41 PM TRACK VEHICLE REPAIRER) GLUCOSE 145(H) 70 - 99 MG/DL 02/15/2019 4:18 PM [facility] BUN 27(H) 7 - 18 MG/DL 02/15/2019 4:18 PM [facility] CREATININE S/P/B 1.21(H) 0.55 - 1.02 MG/DL 02/15/2019 4:18 PM [facility] SODIUM S/P/B 137 136 - 145 MMOL/L 02/15/2019 4:18 PM [facility] POTASSIUM S/P/B 4.0 3.5 - 5.1 MMOL/L 02/15/2019 4:18 PM [facility] CHLORIDE S/P/B 104 100 - 108 MMOL/L 02/15/2019 4:18 PM [facility] CO2 28.5 21 - 32 MMOL/L 02/15/2019 4:18 PM [facility] CALCIUM S/P/B 9.8 8.5 - 10.1 MG/DL 02/15/2019 4:18 PM [facility] BILIRUBIN TOTAL S/P/B 0.5 0.2 - 1.2 MG/DL 02/15/2019 4:18 PM [facility] TOTAL PROTEIN S/P/B 9.5(H) 6.4 - 8.2 G/DL 02/15/2019 4:18 PM [facility] ALBUMIN S/P/B 3.8 3.4 - 5.0 G/DL 02/15/2019 4:18 PM [facility] AST 21 15 - 37 U/L 02/15/2019 4:18 PM [facility] ALT 36 14 - 55 U/L 02/15/2019 4:18 PM [facility] ALKALINE PHOSPHATASE S/P/B 133 50 - 136 U/L 02/15/2019 4:18 PM [facility] ANION GAP 4.5(L) 5 - 15 MMOL/L 02/15/2019 4:18 PM [facility] BUN CREATININE RATIO 22.3 6 - 26 02/15/2019 4:18 PM [facility] A/G RATIO 0.7(L) 1.0 - 2.0 RATIO 02/15/2019 4:18 PM [facility] EGFR NON-AFR. AMER. 53(L) >90 ML/MIN/1.7 3 M2 02/15/2019 4:18 PM [facility] EGFR AFR. AMER. 62(L) >90 ML/MIN/1.7 3 M2 02/15/2019 4:18 PM [facility] Comment: NOTE: eGFR is not calculated for patients <18 years of age. This is an estimated GFR (CKD EPI) and should not be used for calculating drug doses. 02/15/2019 3:41 PM TRACK VEHICLE REPAIRER us Jing Mancilla PA-C LABORATORY Final R esult [facility] [address] [place] [address], [place] [phone] * (ABNORMAL) CBC W/DIFF AUTOMATED (02/15/2019 3:41 PM TRACK VEHICLE REPAIRER) [facility] Signature WBC 14.0(H) 4.5 - 11.0 x10'3/uL 02/15/2019 3:57 PM [facility] RBC 4.37 4.20 - 5.40 x10'6/uL 02/15/2019 3:57 PM [facility] HGB 13.0 12.0 - 16.0 G/DL 02/15/2019 3:57 PM [facility] HCT 38.2 38.0 - 48.0 % 02/15/2019 3:57 PM [facility] MCV 87.4 80.0 - 94.0 FL 02/15/2019 3:57 PM [facility] MCH 29.7 27.0 - 31.0 PG 02/15/2019 3:57 PM [facility] MCHC 34.0 32.0 - 36.0 G/DL 02/15/2019 3:57 PM [facility] RDW 12.2 11.5 - 14.5 % 02/15/2019 3:57 PM [facility] PLT 319 130 - 400 x10'3/uL 02/15/2019 3:57 PM [facility] MPV 11.1 9.3 - 12.2 FL 02/15/2019 3:57 PM [facility] DIFFERENTIAL TYPE AUTOMATED DIFFERENTIAL 02/15/2019 3:57 PM [facility] NEUTROPHILS % 80.4 % 02/15/2019 3:57 PM [facility] LYMPHOCYTES % 13.5 % 02/15/2019 3:57 PM [facility] MONOCYTES % 4.7 % 02/15/2019 3:57 PM [facility] EOSINOPHILS 0.6 % 02/15/2019 3:57 PM TRACK VEHICLE REPAIRER [facility] BASOPHILS 0.3 % 02/15/2019 3:57 PM TRACK VEHICLE REPAIRER [facility] IMMATURE GRANS % 0.5 % 02/16/20 19 3:57 PM TRACK VEHICLE REPAIRER [facility] ABS. NEUTROPHILS TOTAL 11.24(H) 1.80 - 7.70 x10'3/uL 02/15/2019 3:57 PM TRACK VEHICLE REPAIRER [facility] ABS. LYMPHOCYTES 1.89 1.00 - 4.80 x10'3/uL 02/15/2019 3:57 PM TRACK VEHICLE REPAIRER [facility] ABS. MONOCYTES 0.66 0.24 - 0.86 x10'3/uL 02/15/2019 3:57 PM TRACK VEHICLE REPAIRER [facility] ABS. EOSINOPHILS 0.09 0.04 - 0.36 x10'3/uL 02/15/2019 3:57 PM TRACK VEHICLE REPAIRER [facility] ABS. BASOPHILS 0.04 0.01 - 0.08 x10'3/uL 02/15/2019 3:57 PM TRACK VEHICLE REPAIRER [facility] ABS. IMMATURE GRANULOCYTES 0.07 0.00 - 0.49 x10'3/uL 02/15/2019 3:57 PM TRACK VEHICLE REPAIRER [facility] 02/15/2019 3:41 PM TRACK VEHICLE REPAIRER Jing Mancilla PA-C LABORATORY Final R esult [facility] [address] [place] [address], * INFLUENZA A & B (02/15/2019 3:28 PM TRACK VEHICLE REPAIRER) SPECIMEN TYPE NASOPHARYNGEAL SWAB 02/15/2019 3:35 PM TRACK VEHICLE REPAIRER [facility] INFLUENZA A NEGATIVE NEGATIVE 02/15/2019 4:00 PM TRACK VEHICLE REPAIRER [facility] INFLUENZA B NEGATIVE NEGATIVE 02/15/2019 4:00 PM TRACK VEHICLE REPAIRER [facility] Comment: Interpretation: Negative for Influenza [...] a separate order. NASOPHARYNGEAL SWAB / Unknown 02/15/2019 3:28 PM TRACK VEHICLE REPAIRER Jing Mancilla PA-C MICROBIOLOGY - GENERAL ORDERABLES Final Result [facility] [address] [place] [id number], * (ABNORMAL) URINALYSIS (02/15/2019 3:28 PM TRACK VEHICLE REPAIRER) SPECIMEN TYPE URINE CLEAN CATCH 02/15/2019 3:17 PM TRACK VEHICLE REPAIRER [facility] COLOR (U) YELLOW 02/15/2019 3:50 PM [facility] TRANSPARENCY CLEAR 02/15/2019 3:50 PM [facility] SPECIFIC GRAVITY (U) 1.014 1.001 - 1.030 02/15/2019 3:50 PM TRACK VEHICLE REPAIRER [facility] U PH 6.0 5.0 - 9.0 02/15/2019 3:50 PM [facility] LEUKOCYTES (U) NEGATIVE NEGATIVE 02/15/2019 3:50 PM [facility] NITRITES NEGATIVE NEGATIVE 02/15/2019 3:50 PM [facility] PROTEIN (U) 100(H) <30 MG/DL 02/15/2019 3:50 PM [facility] URINE GLUCOSE NEGATIVE NEGATIVE MG/DL 02/15/2019 3:50 PM TRACK VEHICLE REPAIRER [facility] KETONES MG/DL (U) NEGATIVE NEGATIVE MG/DL 02/15/2019 3:50 PM TRACK VEHICLE REPAIRER [facility] UROBILINOGEN NEGATIVE NEGATIVE MG/DL 02/15/2019 3:50 PM TRACK VEHICLE REPAIRER [facility] BILIRUBIN (U) NEGATIVE NEGATIVE MG/DL 02/15/2019 3:50 PM TRACK VEHICLE REPAIRER [facility] BLOOD (U) NEGATIVE NEGATIVE 02/15/2019 3:50 PM TRACK VEHICLE REPAIRER [facility] CULTURE & SENSITIVITY INDICATED? CULTURE IS NOT INDICATED 02/15/2019 3:50 PM TRACK VEHICLE REPAIRER [facility] SQUAMOUS EPITHELIALS MANY /LPF 02/15/2019 3:50 PM TRACK VEHICLE REPAIRER [facility] MUCUS RARE /LPF 02/15/2019 3:50 PM TRACK VEHICLE REPAIRER [facility] WBC/HPF <1 <6 /HPF 02/15/2019 3:50 PM TRACK VEHICLE REPAIRER [facility] RBC/HPF <1 <6 /HPF 02/15/2019 3:50 PM TRACK VEHICLE REPAIRER [facility] URINE SPECIMEN OBTAINED BY CLEAN CATCH PROCEDURE / Unknown 02/15/2019 3:28 PM TRACK VEHICLE REPAIRER Jing Mancilla PA-C URINE ORDERABLES Final Result [facility] [address] [place] [address], [place] [phone] * ECG 12 lead (02/15/2019 3:12 PM TRACK VEHICLE REPAIRER) 02/15/2019 3:12 PM TRACK VEHICLE REPAIRER Narrative [facility] - 02/16/2019 11:53 PM TRACK VEHICLE REPAIRER ?[facility] ? [address], [place] ? Test Date: ?2019-02-15 Pat Name: ? LENA PERRY ?Department: ? Room: ? EXAM20 Gender: ? Female ? Plateman: ?? CM : ?1970 ? Requested By: JING MANCILLA Order Number: [id number] ?Reading MD: ?? Reynaldo Scally ? Measurements Intervals ?[place] ? Rate: ? 99 ? P: ?48 OK: ? 178 ?QRS: ?19 QRSD: ? 82 ? T: ?-85 QT: ? 330 ? QTc: ?423 ? Interpretive Statements SINUS RHYTHM MINIMAL VOLTAGE CRITERIA FOR LVH, CONSIDER NORMAL VARIANT NONSPECIFIC T-WAVE ABNORMALITY Compared to ECG 02/04/2017 12:02:56 No significant changes Preliminary EKG interpretation by ED Physician Other ischemic changes, not STEMI Jing Mancilla PA-C CRITICAL ALERT ISSUED ON 02-15-2019 15:19:12 K VEHICLE REPAIRER Procedure Note Reynaldo Leonardo MD - 02/16/[address] [facility] Test Date: 2019-02-15 Pat Name: LENA YOUNGBLOOD Department: Room: [facility] Gender: Female Plateman: PAMELA : 1970 Requested By: JING MANCILLA Order Number: [id number] Reading MD: Reynaldo Leonardo Measurements Intervals [place] Rate: 99 P: 48 OK: 178 QRS: 19 QRSD: 82 T: -85 QT: 330 QTc: 423 Interpretive Statements SINUS RHYTHM MINIMAL VOLTAGE CRITERIA FOR LVH, CONSIDER NORMAL VARIANT NONSPECIFIC T-WAVE ABNORMALITY Compared to ECG 02/04/2017 12:02:56 No significant changes Preliminary EKG interpretation by ED Physician Other ischemic changes, not STEMI Jing Mancilla PA-C CRITICAL ALERT ISSUED ON 02-15-2019 15:19:12 K VEHICLE REPAIRER us Jing Mancilla PA-C ECG ORDERABLES Final R esult [facility] * XR CHEST PORTABLE (02/15/2019 2:59 PM TRACK VEHICLE REPAIRER) Anatomical Region Laterality Modality Chest Fluoroscopy 02/15/2019 3:02 PM TRACK VEHICLE REPAIRER Impressions 02/15/2019 3:03 PM TRACK VEHICLE REPAIRER IMPRESSION: No acute or focal infiltrates. Interpreted By: Wale Cao MD, 02/15/2019 3:02 PM Narrative 02/15/2019 3:03 PM TRACK VEHICLE REPAIRER EXAM: AP CHEST CLINICAL STATEMENT: chest pain COMPARISON: None available. TIME:02/15/2019 2:53 PM FINDINGS: Heart size is within normal limits. ??Mediastinum is unremarkable. ??In the lung parenchyma no acute or focal infiltrates. ??There is no effusion or free air. ??Bony elements are intact. Procedure Note Wale Cao MD - 02/15/2019 EXAM: AP CHEST CLINICAL STATEMENT: chest pain COMPARISON: None available. TIME:02/15/2019 2:53 PM FINDINGS: Heart size is within normal limits. Mediastinum is unremarkable. In thelung parenchyma no acute or focal infiltrates. There is no effusion orfree air. Bony elements are intact. IMPRESSION: No acute or focal infiltrates. Interpreted By: Wale Cao MD, 02/15/2019 3:02 PM Jing Mancilla PA-C GENERAL IMAGING Final R esult documented in this encounter Visit Diagnoses Diagnosis Viral syndrome- Primary Unspecified viral infection, in conditions classified elsewhere and of unspecified site Nausea, vomiting, and diarrhea Nausea with vomiting Shortness of breath Atypical chest pain Other chest pain Caliectasis documented in this encounter Administered Medications Inactive Administered Medications - up to 3 most recent administrations Medication Order MAR Action Action Date Dose Rate Site iopamidol (ISOVUE-370) 76 % injection 100 mL 100 mL, Intravenous, IMG once as needed, Contrast, 1 dose, Starting on 02/15/19 at 1655, Until 02/16/19 at 0023 ondansetron (ZOFRAN) injection 4 mg 4 mg, Intravenous, Once, 1 dose, On 02/15/19 at 1500, IV push over 2-5 minutes. Given 02/15/2019 7:12 PM TRACK VEHICLE REPAIRER 4 mg sodium chloride 0.9% bolus infusion SOLN 1,000 mL 1,000 mL, Intravenous, Administer over 15 Minutes, Once, 1 dose, On 02/15/19 at 1500 New Bag 02/15/2019 7:12 PM TRACK VEHICLE REPAIRER 1,000 mLs documented in this encounter Active and Recently Administered Medications Times are shown in TRACK VEHICLE REPAIRER. Scheduled Medication Order 02/13/2019 02/14/2019 02/15/2019 ondansetron (ZOFRAN) injection 4 mg (COMPLETED) 4 mg, Intravenous, Once, 1 dose, On 02/15/19 at 1500, IV push over 2-5 minutes. 1911 (Given - Provid er: Soham Arevalo, RN) sodium chloride 0.9% bolus infusion SOLN 1,000 mL (COMPLETED) 1,000 mL, Intravenous, Administer over 15 Minutes, Once, 1 dose, On 02/15/19 at 1500 1911 (New Bag - Prov ider: Soham Arevalo, DEANDRE)2036 (Infusion Stop Time - Provider: Carroll Bhandari RN) PRN Medication Order 02/13/2019 02/14/2019 02/15/2019 iopamidol (ISOVUE-370) 76 % injection 100 mL 100 mL, Intravenous, IMG once as needed, Contrast, 1 dose, Starting on 02/15/19 at 1655, Until 02/16/19 at 0023 documented in this encounter Care Teams System Trainer Relationship Specialty Start Date End Date Jarred Rod MD PCP - General FAMILY PRACTICE 07/21/15 09/30/20 documented as of this encounter
--- OUTSIDE RECORDS SUMMARY | 2024-03-02 22:32 | XMS_ITS | Encounter Summary ---
Author Organization [facility] Address [address] [place] [address]. [place], [place] [id number] [place] [id number] Care Team Providers Care Prior Authorization Nurse Name Role Phone Jarred Rod MD Primary Care Provider Unav ailable Shira Shi PA-C Primary Care Provider [phone] Jarred Rod MD Primary Care Provider Unav ailable Colton SILVEIRA MD, Abiodun L Primary Care Provider Jarred Rod MD Primary Care Provider Unav ailable Encounter Details Date Type Department Care Team (Latest Contact Info) Description 01/06/2019 Scan HEALTH INFO SRVCS Scanned, Documents Social [...] COVID-19? No / Unsure 01/24/2021 11:10 AM MECHANICAL SERVICE REPRESENTATIVE documented as of this encounter Functional Status [...] st Contact Info) Description 03/14/2024 11:45 AM MECHANICAL SERVICE REPRESENTATIVE Office Visit [facility] [phone] Marvin Mckeon MD [facility] [address] [place] [phone] 03/20/2024 11:30 AM MECHANICAL SERVICE REPRESENTATIVE Office Visit [facility] Family Medicine - [address] [phone] Abiodun Segura II, MD [address] [place] [phone] documented as of this encounter Visit Diagnoses Not on filedocumented in this encounter Additional Health Concerns Infection Onset Date Last Indicated Resolved Time COVID-19 Rule Out 09/22/2019 09/22/2019 09/24/2019 11:13 PM CDT COVID-19 Rule Out 11/02/2019 11/02/2019 11/03/2019 3:22 PM CDT COVID-19 Rule Out 12/13/2019 12/13/2019 12/14/2019 3:06 PM CDT COVID-19 Confirmed 12/13/2019 12/13/2019 0 12:34 AM MECHANICAL SERVICE REPRESENTATIVE documented as of this encounter Care Teams Prior Authorization Nurse Relationship Specialty Start Date End Date Jarred Rod MD PCP - General FAMILY PRACTICE 07/21/15 09/30/20 Shira Shi, JESUSC [address] [place] [id number] PCP - General PHYSICIAN ANALYTIC PROGRAMMER 10/01/20 11/17/20 Jarred Rod MD [address] [place] [phone] PCP - General FAMILY PRACTICE 11/18/20 12/05/20 Abiodun Segura II, MD [address] [place] [id number] PCP - General FAMILY PRACTICE 12/06/20 01/16/21 Jarred Rod MD [address] [place] [phone] PCP - General FAMILY PRACTICE 01/17/21 03/08/21 documented as of this encounter
--- OUTSIDE RECORDS SUMMARY | 2024-03-02 22:32 | XMS_ITS | Encounter Summary ---
Author Organization [facility] Address [address] [place] [address]. [place], [place] [address] [place] [address] Care Team Providers Care Insulation Technician Name Role Phone Jarred Rod MD Primary Care Provider Unav ailable Shira Shi PA-C Primary Care Provider +1- [phone] Jarred oRd MD Primary Care Provider Unav ailable Colton SILVEIRA MD, Abiodun L Primary Care Provider Jarred Rod MD Primary Care Provider Unav ailable Reason for Visit * Reason Comments Lab (SCAN) Encounter Details Date Type Department Care Team (Latest Contact Info) Description 03/01/2018 Scan HEALTH INFO SRVCS Scanned, Documents Lab [...] COVID-19? No / Unsure 01/24/2021 11:10 AM ENAMEL SPRAYER documented as of this encounter Functional Status [...] st Contact Info) Description 03/14/2024 11:45 AM ENAMEL SPRAYER Office Visit [facility] [phone] Marvin Mckeon MD Three [facility] [address] [place] [address] 03/20/2024 11:30 AM ENAMEL SPRAYER Office Visit [facility] Family Medicine - [place] 100 [place] [phone] Abiodun Segura II, MD 100 [place], [place] [phone] documented as of this encounter Procedures Procedure Name Priority Date/Time Associated Diagnosis Comments OUTSIDE LAB (SCAN ORDER) 03/01/2018 OUTSIDE LAB (SCAN ORDER) 03/01/2018 documented in this encounter Results * OUTSIDE LAB (SCAN) (03/01/2018) 03/01/2018 Narrative 03/01/2018 Ordered by an unspecified provider. us Documents Scanned SCANNING Final Result * OUTSIDE LAB (SCAN) (03/01/2018) 03/01/2018 Narrative 03/01/2018 Ordered by an unspecified provider. us Documents [...] COVID-19 Confirmed 12/13/2019 12/13/2019 0 12:34 AM ENAMEL SPRAYER documented as of this encounter Care Teams Insulation Technician Relationship Specialty Start Date End Date Jarred Rod MD PCP - General FAMILY PRACTICE 07/21/15 09/30/20 Shira Shi PA-C 100 [place] [address] PCP - General PHYSICIAN EYEWEAR MANUFACTURING SUPERVISOR 10/01/20 11/17/20 Jarred Rod MD [address] [place] [address] PCP - General FAMILY PRACTICE 11/18/20 12/05/20 Abiodun Segura II, MD [address] [place] [address] PCP - General FAMILY PRACTICE 12/06/20 01/16/21 Jarred Rod MD [address] [place] [address] PCP - General FAMILY PRACTICE 01/17/21 03/08/21 documented as of this encounter
--- OUTSIDE RECORDS SUMMARY | 2024-03-02 22:32 | XMS_ITS | Encounter Summary ---
Author Organization [facility] Address [address] [place] [address]. [place], [place] [address] [place] [address] Care Team Providers Care Stacker Name Role Phone Jarred Rod MD Primary Care Provider Unav ailable Shira Shi PA-C Primary Care Provider +1- [phone] Jarred Rod MD Primary Care Provider Unav ailable Colton SILVEIRA MD, Abiodun L Primary Care Provider Jarred Rod MD Primary Care Provider Unav ailable Reason for Visit * Reason Comments Lab (SCAN) Encounter Details Date Type Department Care Team (Latest Contact Info) Description 02/20/2019 Scan [facility] HEALTH INFO SRVCS Scanned, Documents [...] COVID-19? No / Unsure 01/24/2021 11:10 AM SECURITY PROGRAM MANAGER documented as of this encounter Functional [...] st Contact Info) Description 03/14/2024 11:45 AM SECURITY PROGRAM MANAGER Office Visit [facility] [phone] Marvin Mckeon MD Three [facility] [address] [place] [address] 03/20/2024 11:30 AM SECURITY PROGRAM MANAGER Office Visit [facility] Family Medicine - [place] 100 [place] [phone] Abiodun Segura II, MD 100 [place], [place] [phone] documented as of this encounter Procedures Procedure Name Priority Date/Time Associated Diagnosis Comments OUTSIDE LAB (SCAN ORDER) 02/20/2019 documented in this encounter Results * OUTSIDE LAB (SCAN) (02/20/2019) 02/20/2019 Narrative 02/20/2019 Ordered by an unspecified provider. us Documents [...] COVID-19 Confirmed 12/13/2019 12/13/2019 0 12:34 AM SECURITY PROGRAM MANAGER documented as of this encounter Care Teams Stacker Relationship Specialty Start Date End Date Jarred Rod MD PCP - General FAMILY PRACTICE 07/21/15 09/30/20 Shira Shi PA-C [address] [place] [address] PCP - General PHYSICIAN MANUFACTURING MECHANIC 10/01/20 11/17/20 Jarred Rod MD [address] [place] [address] PCP - General FAMILY PRACTICE 11/18/20 12/05/20 Abiodun Segura II, MD [address] [place] [address] PCP - General FAMILY PRACTICE 12/06/20 01/16/21 Jarred Rod MD [address] [place] [address] PCP - General FAMILY PRACTICE 01/17/21 03/08/21 documented as of this encounter
--- OUTSIDE RECORDS SUMMARY | 2024-03-02 22:32 | XMS_ITS | Encounter Summary ---
Author Organization [facility] Address [address] [place] [address]. [place], [place] [address] [place] [address] Care Team Providers Care Legal Specialist Name Role Phone Jarred Rod MD Primary Care Provider Unav ailable Shira Shi PA-C Primary Care Provider +1- [phone] Jarred Rod MD Primary Care Provider Unav ailable Colton SILVEIRA MD, Abiodun L Primary Care Provider Jarred Rod MD Primary Care Provider Unav ailable Encounter Details Date Type Department Care Team (Latest Contact Info) Description 08/08/2018 Scan HEALTH INFO SRVCS Scanned, Documents Social [...] COVID-19? No / Unsure 01/24/2021 11:10 AM PREVENTION COORDINATOR documented as of this encounter Functional Status [...] st Contact Info) Description 03/14/2024 11:45 AM PREVENTION COORDINATOR Office Visit [facility] [phone] Marvin Mckeon MD Three [facility] [address] [place] [phone] 03/20/2024 11:30 AM PREVENTION COORDINATOR Office Visit [facility] Family Medicine - [address] [address] Abiodun Segura II, MD [address] [place] [phone] documented as of this encounter Visit Diagnoses Not on filedocumented in this encounter Additional Health Concerns Infection Onset Date Last Indicated Resolved Time COVID-19 Rule Out 09/22/2019 09/22/2019 09/24/2019 11:13 PM CDT COVID-19 Rule Out 11/02/2019 11/02/2019 11/03/2019 3:22 PM CDT COVID-19 Rule Out 12/13/2019 12/13/2019 12/14/2019 3:06 PM CDT COVID-19 Confirmed 12/13/2019 12/13/2019 0 12:34 AM PREVENTION COORDINATOR documented as of this encounter Care Teams Legal Specialist Relationship Specialty Start Date End Date Jarred Rod MD PCP - General FAMILY PRACTICE 07/21/15 09/30/20 Shria Shi, JESUSC [address] [place] [address] PCP - General PHYSICIAN SCENE AND LIGHTING DESIGN LECTURER 10/01/20 11/17/20 Jarred Rod MD [address] [place] [address] PCP - General FAMILY PRACTICE 11/18/20 12/05/20 Abiodun Segura II, MD [address] [place] [address] PCP - General FAMILY PRACTICE 12/06/20 01/16/21 Jarred Rod MD [address] [place] [address] PCP - General FAMILY PRACTICE 01/17/21 03/08/21 documented as of this encounter
--- OUTSIDE RECORDS SUMMARY | 2024-03-02 22:32 | XMS_ITS | Encounter Summary ---
Author Organization [facility] Address [address] [place] [address]. [place], [place] [address] [place] [address] Care Team Providers Care Finished Metal Repairer Name Role Phone Jarred Rod MD Primary Care Provider Unav ailable Shira Shi PA-C Primary Care Provider +1- [phone] Jarred Rod MD Primary Care Provider Unav ailable Colton SILVEIRA MD, Abiodun L Primary Care Provider Jarred Rod MD Primary Care Provider Unav ailable Reason for Visit * Reason Comments Ultrasound (SCAN) Encounter Details Date Type Department Care Team (Late st Contact Info) Description 09/12/2017 Scan HEALTH INFO SRVCS Scanned, Documents Ultrasound [...] COVID-19? No / Unsure 01/24/2021 11:10 AM MDM SR documented as of this encounter Functional Status [...] st Contact Info) Description 03/14/2024 11:45 AM MDM SR Office Visit [facility] [phone] Marvin Mckeon MD Three [facility] [address] [place] [address] 03/20/2024 11:30 AM MDM SR Office Visit [facility] Family Medicine - [place] 100 [place] [phone] Abiodun Segura II, MD 100 [place], [place] [phone] documented as of this encounter Procedures Procedure Name Priority Date/Time Associated Diagnosis Comments ULTRASOUND GENERIC (SCAN ORDER) 09/12/2017 documented in this encounter Results * ULTRASOUND GENERIC (09/12/2017) Anatomical Region Laterality Modality Other 09/12/2017 Narrative 09/12/2017 Ordered by an unspecified provider. us Documents [...] COVID-19 Confirmed 12/13/2019 12/13/2019 0 12:34 AM MDM SR documented as of this encounter Care Teams Finished Metal Repairer Relationship Specialty Start Date End Date Jarred Rod MD PCP - General FAMILY PRACTICE 07/21/15 09/30/20 Shira Shi PA-C [address] [place] [address] PCP - General PHYSICIAN PIANO AND ORGAN REFINISHER 10/01/20 11/17/20 Jarred Rod MD [address] [place] [address] PCP - General FAMILY PRACTICE 11/18/20 12/05/20 Abiodun Segura II, MD [address] [place] [address] PCP - General FAMILY PRACTICE 12/06/20 01/16/21 Jarred Rod MD [address] [place] [address] PCP - General FAMILY PRACTICE 01/17/21 03/08/21 documented as of this encounter
--- OUTSIDE RECORDS SUMMARY | 2024-03-02 22:32 | XMS_ITS | Encounter Summary ---
Author Organization [facility] Address [address] [place] [address]. [place] [address] [place] [address] Care Team Providers Care Title I Paraprofessional Name Role Phone Jarred Rod MD Primary Care Provider Unav ailable Encounter Details Date Type Department Care Team (Late Contact Info) Description 06/28/2017 Orders Only [facility] [address] [place] [address] Hubert Barrera MD [facility] [address] [place] [address] Social History Tobacco Use Types [...] Encounters Date Type Department Care Team (Late Contact Info) Description 03/14/2024 11:45 AM COMMERCIAL ENERGY AUDITOR Office Visit [facility]-[address] [phone] Marvin Mckeon MD Three 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
--- OUTSIDE RECORDS SUMMARY | 2024-03-02 22:32 | XMS_ITS | Encounter Summary ---
Author Organization [facility] Address [address] [place] [address]. [place], [place] [address] [place] [address] Care Team Providers Care Break Out Man Name Role Phone Jarred Rod MD Primary Care Provider Unav ailable Shira Shi PA-C Primary Care Provider +1- [phone] Jarred Rod MD Primary Care Provider Unav ailable Colton SILVEIRA MD, Abiodun L Primary Care Provider Jarred Rod MD Primary Care Provider Unav ailable Reason for Visit * Reason Comments Mammogram (SCAN) Encounter Details Date Type Department Care Team (Late st Contact Info) Description 11/25/2018 Scan HEALTH INFO SRVCS Scanned, Documents Mammogram [...] COVID-19? No / Unsure 01/24/2021 11:10 AM MD DO RESIDENT URGENT CARE documented as of this encounter Functional Status [...] st Contact Info) Description 03/14/2024 11:45 AM MD DO RESIDENT URGENT CARE Office Visit [facility] [phone] Marvin Mckeon MD Three [facility] [address] [place] [address] 03/20/2024 11:30 AM MD DO RESIDENT URGENT CARE Office Visit [facility] Family Medicine - [place] 100 [place] [address] Abiodun Segura II, MD 100 [place], [place] [phone] documented as of this encounter Procedures Procedure Name Priority Date/Time Associated Diagnosis Comments MAMMOGRAM GENERIC (SCAN ORDER) 11/25/2018 documented in this encounter Results * MAMMOGRAM GENERIC (11/25/2018) Anatomical Region Laterality Modality Other 11/25/2018 Narrative 11/25/2018 Ordered by an unspecified provider. us Documents [...] COVID-19 Confirmed 12/13/2019 12/13/2019 0 12:34 AM MD DO RESIDENT URGENT CARE documented as of this encounter Care Teams Break Out Man Relationship Specialty Start Date End Date Jarred Rod MD PCP - General FAMILY PRACTICE 07/21/15 09/30/20 Shira Shi PA-C [address] [place] [address] PCP - General PHYSICIAN STOCK WETTER 10/01/20 11/17/20 Jarred Rod MD [address] [place] [address] PCP - General FAMILY PRACTICE 11/18/20 12/05/20 Abiodun Segura II, MD [address] [place] [address] PCP - General FAMILY PRACTICE 12/06/20 01/16/21 Jarred Rod MD [address] [place] [address] PCP - General FAMILY PRACTICE 01/17/21 03/08/21 documented as of this encounter
--- OUTSIDE RECORDS SUMMARY | 2024-03-02 22:32 | XMS_ITS | Encounter Summary ---
Author Organization [facility] Address [address] [place] [address]. [place], [place] [address] [place] [address] Care Team Providers Care Nurses Superintendent Name Role Phone Jarred Rod MD Primary Care Provider Unav ailable Shira Shi PA-C Primary Care Provider +1- [phone] Jarred Rod MD Primary Care Provider Unav ailable Colton SILVEIRA MD, Abiodun L Primary Care Provider Jarred Rod MD Primary Care Provider Unav ailable Encounter Details Date Type Department Care Team (Latest Contact Info) Description 08/13/2017 Scan HEALTH INFO SRVCS Scanned, Documents Social [...] COVID-19? No / Unsure 01/24/2021 11:10 AM PHLEBOTOMIST MEDICAL LAB ASSISTANT documented as of this encounter Functional [...] st Contact Info) Description 03/14/2024 11:45 AM PHLEBOTOMIST MEDICAL LAB ASSISTANT Office Visit [facility] [phone] Marvin Mckeon MD Three [facility] [address] [place] [phone] 03/20/2024 11:30 AM PHLEBOTOMIST MEDICAL LAB ASSISTANT Office Visit [facility] Family Medicine - [address] [address] Abiodun Segura II, MD [address] [place] [phone] documented as of this encounter Visit Diagnoses Not on filedocumented in this encounter Additional Health Concerns Infection Onset Date Last Indicated Resolved Time COVID-19 Rule Out 09/22/2019 09/22/2019 09/24/2019 11:13 PM CDT COVID-19 Rule Out 11/02/2019 11/02/2019 11/03/2019 3:22 PM CDT COVID-19 Rule Out 12/13/2019 12/13/2019 12/14/2019 3:06 PM CDT COVID-19 Confirmed 12/13/2019 12/13/2019 0 12:34 AM PHLEBOTOMIST MEDICAL LAB ASSISTANT documented as of this encounter Care Teams Nurses Superintendent Relationship Specialty Start Date End Date Jarred Rod MD PCP - General FAMILY PRACTICE 07/21/15 09/30/20 Shira Shi, JESUSC [address] [place] [address] PCP - General PHYSICIAN GRIDCAP MACHINE OPERATOR 10/01/20 11/17/20 Jarred Rod MD [address] [place] [address] PCP - General FAMILY PRACTICE 11/18/20 12/05/20 Abiodun Segura II, MD [address] [place] [address] PCP - General FAMILY PRACTICE 12/06/20 01/16/21 Jarred Rod MD [address] [place] [address] PCP - General FAMILY PRACTICE 01/17/21 03/08/21 documented as of this encounter
--- OUTSIDE RECORDS SUMMARY | 2024-03-02 22:32 | XMS_ITS | Encounter Summary ---
Author Organization [facility] Address [address] [place] [address]. [place] [address] [place] [address] Care Team Providers Care Middle School Professional Name Role Phone Jarred Rod MD Primary Care Provider Unav ailable Encounter Details Date Type Department Care Team (Latest Contact Info) Description 04/28/2019 Travel Social History Tobacco Use Types Packs/Day [...] st Contact Info) Description 03/14/2024 11:45 AM TELECOMMUNICATIONS CABLE JOINTER Office Visit [facility]-[address] [phone] Marvin Mckeon MD Three [facility] [address] [place] [address] 03/20/2024 11:30 AM TELECOMMUNICATIONS CABLE JOINTER Office Visit [facility] Family Medicine - [place] 100 [place] [phone] Abiodun Segura II, MD 100 [place] [address] documented as of this encounter Visit Diagnoses Not on filedocumented in this encounter Care Teams Middle School Professional Relationship Specialty Start Date End Date Jarred Rod MD PCP - General FAMILY PRACTICE 07/21/15 09/30/20 documented as of this encounter
--- OUTSIDE RECORDS SUMMARY | 2024-03-02 22:32 | XMS_ITS | Encounter Summary ---
Author Organization [facility] Address [address] [place] [address]. [place], [place] [address] [place] [address] Care Team Providers Care Nurse Orthopaedic Name Role Phone Jarred Rod MD Primary Care Provider Unav ailable Shira Shi PA-C Primary Care Provider +1- [phone] Jarred Rod MD Primary Care Provider Unav ailable Colton SILVEIRA MD, Abiodun L Primary Care Provider Jarred Rod MD Primary Care Provider Unav ailable Encounter Details Date Type Department Care Team (Latest Contact Info) Description 09/07/2017 Scan HEALTH INFO SRVCS Scanned, Documents Social [...] COVID-19? No / Unsure 01/24/2021 11:10 AM SHADE MATCHER documented as of this encounter Functional Status [...] st Contact Info) Description 03/14/2024 11:45 AM SHADE MATCHER Office Visit [facility] [phone] Marvin Mckeon MD Three [facility] [address] [place] [phone] 03/20/2024 11:30 AM SHADE MATCHER Office Visit [facility] Family Medicine - [address] [address] Abiodun Segura II, MD [address] [place] [phone] documented as of this encounter Visit Diagnoses Not on filedocumented in this encounter Additional Health Concerns Infection Onset Date Last Indicated Resolved Time COVID-19 Rule Out 09/22/2019 09/22/2019 09/24/2019 11:13 PM CDT COVID-19 Rule Out 11/02/2019 11/02/2019 11/03/2019 3:22 PM CDT COVID-19 Rule Out 12/13/2019 12/13/2019 12/14/2019 3:06 PM CDT COVID-19 Confirmed 12/13/2019 12/13/2019 0 12:34 AM SHADE MATCHER documented as of this encounter Care Teams Nurse Orthopaedic Relationship Specialty Start Date End Date Jarred Rod MD PCP - General FAMILY PRACTICE 07/21/15 09/30/20 Shira Shi, JESUSC [address] [place] [address] PCP - General PHYSICIAN MICROSOFT EXCHANGE ADMINISTRATOR 10/01/20 11/17/20 Jarred Rod MD [address] [place] [address] PCP - General FAMILY PRACTICE 11/18/20 12/05/20 Abiodun Segura II, MD [address] [place] [address] PCP - General FAMILY PRACTICE 12/06/20 01/16/21 Jarred Rod MD [address] [place] [address] PCP - General FAMILY PRACTICE 01/17/21 03/08/21 documented as of this encounter
--- OUTSIDE RECORDS SUMMARY | 2024-03-02 22:32 | XMS_ITS | Encounter Summary ---
Author Organization [facility] Address [address] [place] [address]. [place], [place] [address] [place] [address] Care Team Providers Care Stock Fitter Name Role Phone Jarred Rod MD Primary Care Provider Unav ailable Shira Shi PA-C Primary Care Provider +1- [phone] Jarred Rod MD Primary Care Provider Unav ailable Colton SILVEIRA MD, Abiodun L Primary Care Provider Jarred Rod MD Primary Care Provider Unav ailable Reason for Visit * Reason Comments Image (SCAN) Encounter Details Date Type Department Care Team (Latest Contact Info) Description 02/15/2019 Scan HEALTH INFO SRVCS Scanned, Documents Image [...] COVID-19? No / Unsure 01/24/2021 11:10 AM ROTARY PEEL OVEN TENDER documented as of this encounter Functional [...] Contact Info) Description 03/14/2024 11:45 AM ROTARY PEEL OVEN TENDER Office Visit [facility] [phone] Marvin Mckeon MD Three [facility] [address] [place] [address] 03/20/2024 11:30 AM ROTARY PEEL OVEN TENDER Office Visit [facility] Family Medicine - [place] 100 [place] [phone] Abiodun Segura II, MD 100 [place], [place] [phone] documented as of this encounter Procedures Procedure Name Priority Date/Time Associated Diagnosis Comments IMAGE GENERIC 02/15/2019 IMAGE GENERIC 02/15/2019 IMAGE GENERIC 02/15/2019 documented in this encounter Results * IMAGE GENERIC (02/15/2019) Anatomical Region Laterality Modality Other 02/15/2019 Narrative 02/15/2019 Ordered by an unspecified provider. us Documents Scanned SCANNING Final Result * IMAGE GENERIC (02/15/2019) Anatomical Region Laterality Modality Other 02/15/2019 Narrative 02/15/2019 Ordered by an unspecified provider. us Documents Scanned SCANNING Final Result * IMAGE GENERIC (02/15/2019) Anatomical Region Laterality Modality Other 02/15/2019 Narrative 02/15/2019 Ordered by an unspecified provider. us Documents [...] COVID-19 Confirmed 12/13/2019 12/13/2019 0 12:34 AM ROTARY PEEL OVEN TENDER documented as of this encounter Care Teams Stock Fitter Relationship Specialty Start Date End Date Jarred Rod MD PCP - General FAMILY PRACTICE 07/21/15 09/30/20 Shira Shi PA-C [address] [place] [address] PCP - General PHYSICIAN SKIN WASHER 10/01/20 11/17/20 Jarred Rod MD [address] [place] [address] PCP - General FAMILY PRACTICE 11/18/20 12/05/20 Abiodun Segura II, MD [address] [place] [address] PCP - General FAMILY PRACTICE 12/06/20 01/16/21 Jarred Rod MD [address] [place] [address] PCP - General FAMILY PRACTICE 01/17/21 03/08/21 documented as of this encounter
--- OUTSIDE RECORDS SUMMARY | 2024-03-02 22:32 | XMS_ITS | Encounter Summary ---
Author Organization [facility] Address [address] [place] [address]. [place], [place] [address] [place] [address] Care Team Providers Care Cable Splicer Assistant Name Role Phone Jarred Rod MD Primary Care Provider Unav ailable Shira Shi PA-C Primary Care Provider +1- [phone] Jarred Rod MD Primary Care Provider Unav ailable Colton SILVEIRA MD, Abiodun L Primary Care Provider Jarred Rod MD Primary Care Provider Unav ailable Encounter Details Date Type Department Care Team (Latest Contact Info) Description 07/21/2018 Scan HEALTH INFO SRVCS Scanned, Documents Social [...] COVID-19? No / Unsure 01/24/2021 11:10 AM GROUNDS AND NURSERY SPECIALIST documented as of this encounter Functional [...] st Contact Info) Description 03/14/2024 11:45 AM GROUNDS AND NURSERY SPECIALIST Office Visit [facility] [address] Marvin Mckeon MD Three [facility] [address] [place] [phone] 03/20/2024 11:30 AM GROUNDS AND NURSERY SPECIALIST Office Visit [facility] Family Medicine - [address] [address] Abiodun Segura II, MD [address] [place] [phone] documented as of this encounter Visit Diagnoses Not on filedocumented in this encounter Additional Health Concerns Infection Onset Date Last Indicated Resolved Time COVID-19 Rule Out 09/22/2019 09/22/2019 09/24/2019 11:13 PM CDT COVID-19 Rule Out 11/02/2019 11/02/2019 11/03/2019 3:22 PM CDT COVID-19 Rule Out 12/13/2019 12/13/2019 12/14/2019 3:06 PM CDT COVID-19 Confirmed 12/13/2019 12/13/2019 0 12:34 AM GROUNDS AND NURSERY SPECIALIST documented as of this encounter Care Teams Cable Splicer Assistant Relationship Specialty Start Date End Date Jarred Rod MD PCP - General FAMILY PRACTICE 07/21/15 09/30/20 Shira Shi, JESUSC [address] [place] [address] PCP - General PHYSICIAN PHYSICIAN/INTERNIST 10/01/20 11/17/20 Jarred Rod MD [address] [place] [phone] PCP - General FAMILY PRACTICE 11/18/20 12/05/20 Abiodun Segura II, MD [address] [place] [id number] PCP - General FAMILY PRACTICE 12/06/20 01/16/21 Jarred Rod MD [address] [place] [id number] PCP - General FAMILY PRACTICE 01/17/21 03/08/21 documented as of this encounter
--- OUTSIDE RECORDS SUMMARY | 2024-03-02 22:32 | XMS_ITS | Encounter Summary ---
Author Organization [facility] [place] [facility] Address [address] [place] [address]. [place] [address] [place] [address] Care Team Providers Care Slitter And Rewinder Machine Operator Name Role Phone Jarred Rod MD Primary Care Provider Unav ailable Encounter Details Date Type Department Care Team (Late Contact Info) Description 06/29/2017 Orders Only [facility] at [facility], [facility] [address] [place] [address] Hubert Barrera MD [facility]. [facility] [address] [place] [address] Social History Tobacco Use Types [...] (Late Contact Info) Description 03/14/2024 11:45 AM RADIATOR TESTER Office Visit [facility] [address] Marvin Mckeon MD Three [facility] [address] [place] [address] 03/20/2024 11:30 AM RADIATOR TESTER Office Visit [facility] Medical [facility] Family Medicine - [place] [address] [place] [phone] Abiodun Segura II, MD [address] [place] [address] documented as of this encounter Visit Diagnoses Not on filedocumented in this encounter Care Teams Slitter And Rewinder Machine Operator Relationship Specialty Start Date End Date Jarred Rod MD PCP - General FAMILY PRACTICE 07/21/15 09/30/20 documented as of this encounter
--- OUTSIDE RECORDS SUMMARY | 2024-03-02 22:32 | XMS_ITS | Encounter Summary ---
Author Organization [facility] Address [address] [place] [address]. [place] [address] [place] [address] Care Team Providers Care Beer Still Runner Compounder Name Role Phone Jarred Rod MD Primary Care Provider Unav ailable Encounter Details Date Type Department Care Team (Late st Contact Info) Description 07/03/2017 Scan [facility] [address] [place] [address] Scanned, Documents Social History Tobacco Use Types [...] st Contact Info) Description 03/14/2024 11:45 AM STAPLER HAND Office Visit [facility] [address] Marvin Mckeon MD [facility] [address] [place] [address] 03/20/2024 11:30 AM STAPLER HAND Office Visit [facility] Family Medicine - [place] 100 [place] [phone] Abiodun Segura II, MD 100 [place] [address] documented as of this encounter Visit Diagnoses Not on filedocumented in this encounter Care Teams Beer Still Runner Compounder Relationship Specialty Start Date End Date Jarred Rod MD PCP - General FAMILY PRACTICE 07/21/15 09/30/20 documented as of this encounter
--- OUTSIDE RECORDS SUMMARY | 2024-03-02 22:32 | XMS_ITS | Encounter Summary ---
Author Organization [facility] Address [address] [place] [address]. [place], [place] [address] [place] [address] Care Team Providers Care Business Administration Instructor Name Role Phone Jarred Rod MD Primary Care Provider Unav ailable Shira Shi PA-C Primary Care Provider +1- [phone] Jarred Rod MD Primary Care Provider Unav ailable Colton SILVEIRA MD, Abiodun L Primary Care Provider Jarred Rod MD Primary Care Provider Unav ailable Reason for Visit * Reason Comments CT (SCAN) Ultrasound (SCAN) Encounter Details Date Type Department Care Team (Late st Contact Info) Description 04/28/2019 Scan HEALTH INFO SRVCS Scanned, Documents CT (SCAN); Ultrasound (SCAN) Social History Tobacco Use Types [...] COVID-19? No / Unsure 01/24/2021 11:10 AM PERIODONTIST documented as of this encounter Functional Status [...] st Contact Info) Description 03/14/2024 11:45 AM PERIODONTIST Office Visit [facility] [address] Marvin Mckeon MD [facility] [address] [place] [address] 03/20/2024 11:30 AM PERIODONTIST Office Visit [facility] Family Medicine - [place] [address] [place] [address] Abiodun Segura II, MD 100 [place] [address] documented as of this encounter Procedures Procedure Name Priority Date/Time Associated Diagnosis Comments CT GENERIC 04/28/2019 ULTRASOUND GENERIC (SCAN ORDER) 04/28/2019 documented in this encounter Results * CT GENERIC (04/28/2019) Anatomical Region Laterality Modality Other 04/28/2019 Narrative 04/28/2019 Ordered by an unspecified provider. us Documents Scanned SCANNING Final Result * ULTRASOUND GENERIC (04/28/2019) Anatomical Region Laterality Modality Other 04/28/2019 Narrative 04/28/2019 Ordered by an unspecified provider. us Documents [...] COVID-19 Confirmed 12/13/2019 12/13/2019 0 12:34 AM PERIODONTIST documented as of this encounter Care Teams Business Administration Instructor Relationship Specialty Start Date End Date Jarred Rod MD PCP - General FAMILY PRACTICE 07/21/15 09/30/20 Shira Shi PA-C [address] [place] [address] PCP - General PHYSICIAN SALES REPRESENTATIVE LIVESTOCK 10/01/20 11/17/20 Jarred Rod MD [address] [place] [address] PCP - General FAMILY PRACTICE 11/18/20 12/05/20 Abiodun Segura II, MD [address] [place] [address] PCP - General FAMILY PRACTICE 12/06/20 01/16/21 Jarred Rod MD [address] [place] [address] PCP - General FAMILY PRACTICE 01/17/21 03/08/21 documented as of this encounter
--- OUTSIDE RECORDS SUMMARY | 2024-03-02 22:32 | XMS_ITS | Encounter Summary ---
Author Organization [facility] Address [facility] [place] [address] [place] [address] Care Team Providers Care Dyed Yarn Operator Name Role Phone Jarred Rod MD Primary Care Provider Unav ailable Reason for Referral * Imaging (Routine) - Closed Specialty Diagnoses / Procedures Referred By Contac t Referred To Contact RADIOLOGY Diagnoses Complex cyst of right ovary Procedures US PELVIC NON OB COMP TA+TV Jarred Rod MD Referral ID Status Reason Start Date Expiration Date Visits Re quested Visits Authorized [id number] Closed 04/11/2019 05/10/2020 1 1 * Imaging (Routine) - Closed Specialty Diagnoses / Procedures Referred By Contac t Referred To Contact RADIOLOGY Diagnoses Solitary pulmonary nodule Procedures CT CHEST W Jarred Calderon MD Referral ID Status Reason Start Date Expiration Date Visits Re quested Visits Authorized [id number] Closed 04/11/2019 05/10/2020 1 1 Reason for Visit * Imaging (Routine) - Closed Specialty Diagnoses / Procedures Referred By Lyla t Referred To Contact RADIOLOGY Diagnoses Solitary pulmonary nodule Procedures CT CHEST W Jarred Calderon MD Referral ID Status Reason Start Date Expiration Date Visits Re quested Visits Authorized [id number] Closed 04/11/2019 05/10/2020 1 1 Encounter Details Date Type Department Care Team (Latest Contact Info) Description 04/28/2019 7:46 AM CDT - 04/28/2019 11:59 PM CDT Hospital Encounter [facility] [place] [address] Jarred Rod MD Discharge Disposition: Home or Self Care (Routine [...] st Contact Info) Description 03/14/2024 11:45 AM SPORTS TEAM MARKETING INTERN Office Visit [facility] [phone] Marvin Mckeon MD Three [facility] [address] [place] [address] 03/20/2024 11:30 AM SPORTS TEAM MARKETING INTERN Office Visit [facility] Medical [facility] Family Medicine - [place] 100 [place] [phone] Abiodun Segura II, MD 100 [place] [address] documented as of this encounter Procedures Procedure Name Priority Date/Time Associated Diagnosis Comments US PELVIC NON OB COMP TA+TV Routine 04/28/2019 9:53 AM CDT Complex cyst of right ovary CT CHEST W CON Routine 04/28/2019 8:46 AM CDT Solitary pulmonary nodule CREATININE WHOLE BLOOD Routine 04/28/2019 7:20 AM CDT documented in this encounter Results * US PELVIC NON OB COMP TA+TV (04/28/2019 9:53 AM CDT) Anatomical Region Laterality Modality Pelvis Ultrasound 04/28/2019 1:45 PM CDT Impressions 04/28/2019 1:50 PM CDT IMPRESSION: Probable combination of simple and complex nabothian cysts in the cervical remnant. Interpreted By: Walter Alvarez MD, 04/28/2019 1:45 PM Narrative 04/28/2019 1:50 PM CDT Exam: Pelvic ultrasound No comparison INDICATION: Possible hysterectomy, follow-up prior CT findings in the right adnexa. TECHNIQUE: Transabdominal and transvaginal grayscale, color Doppler, and spectral waveform analysis. FINDINGS: Nonvisualization of the uterus. ??The right ovary measures 2.5 x 1.6 x 1.3 cm. ??Nonvisualization of the left ovary. At least some portion of the cervix appears to be present. ??Simple and complex cystic appearing structures within it are probably nabothian cysts. ??The largest measures about 1.2 cm. ??The right ovary has a normal appearance. ??Blood flow shown to it with Doppler. ??No free pelvic fluid. Procedure Note Walter Alvarez MD - 04/28/2019 Exam: Pelvic ultrasound No comparison INDICATION: Possible hysterectomy, follow-up prior CT findings in theright adnexa. TECHNIQUE: Transabdominal and transvaginal grayscale, color Doppler, andspectral waveform analysis. FINDINGS: Nonvisualization of the uterus. The right ovary measures 2.5 x1.6 x 1.3 cm. Nonvisualization of the left ovary. At least some portion of the cervix appears to be present. Simple andcomplex cystic appearing structures within it are probably nabothiancysts. The largest measures about 1.2 cm. The right ovary has a normalappearance. Blood flow shown to it with Doppler. No free pelvic fluid. IMPRESSION: Probable combination of simple and complex nabothian cysts inthe cervical remnant. Interpreted By: Walter Alvarez MD, 04/28/2019 1:45 PM us Jarred Rod MD ULTRASOUND Final Resul t * CT CHEST W CON (04/28/2019 8:46 AM CDT) Anatomical Region Laterality Modality Chest Computed Tomogra phy 04/28/2019 9:36 AM CDT Impressions 04/28/2019 10:03 AM CDT IMPRESSION: No consolidation or pleural effusion. Bibasilar atelectasis seen. Subtle focal more confluent opacity at the bases bilaterally are seen and although atelectasis may have similar appearance although, less likely evolving airspace disease processes are not excluded. Follow-up as needed. Narrative 04/28/2019 10:03 AM CDT EXAMINATION: CT Chest with contrast DATE: 04/28/2019 7:58 AM CLINICAL HISTORY: Left lower lobe nodule COMPARISON: 02/02/2016 02/15/2019 ?? TECHNIQUE: Computed tomography of the chest was obtained after administration of intravenous contrast, 100 mL of Isovue-370, without immediate complication according to routine protocol. A dose lowering technique was used for this procedure, which may include, but is not limited to, dose reduction technique, automated exposure control, the use of iterative reconstruction, and ALARA (As Low As Reasonably Achievable) / Image Gently techniques. FINDINGS: No effusion or airspace opacity is seen. Bibasilar atelectasis seen. Minor emphysematous changes are not excluded. Focal more confluent opacities are seen at the lung bases these may be nonspecific and related to atelectasis although, early evolving airspace disease process cannot be entirely excluded. Airways are patent. Cardiomegaly is identified. No pericardial effusion is seen. No lymphadenopathy seen. Three-vessel aortic arch and central pulmonary vascular the appear within normal limits within the resolution of this exam. Images at the base of neck demonstrate no significant findings. Subcutaneous tissues demonstrate no significant findings. Images of the upper abdomen demonstrate no significant findings. Imaged bony elements appear intact. Procedure Note Saige Hernández MD - 04/28/2019 EXAMINATION: CT Chest with contrast DATE: 04/28/2019 7:58 AM CLINICAL HISTORY: Left lower lobe nodule COMPARISON: 02/02/2016 02/15/2019 TECHNIQUE: Computed tomography of the chest was obtained after administration of intravenous contrast, 100 mL of Isovue-370, without immediate complication according to routine protocol. A dose lowering technique was used for this procedure, which may include, but is not limited to, dose reduction technique, automated exposure control, theuse of iterative reconstruction, and ALARA (As Low As Reasonably Achievable)/ Image Gently techniques. FINDINGS: No effusion or airspace opacity is seen. Bibasilar atelectasis seen.Minor emphysematous changes are not excluded. Focal more confluent opacitiesare seen at the lung bases these may be nonspecific and related toatelectasis although, early evolving airspace disease process cannot be entirely excluded. Airways are patent. Cardiomegaly is identified. No pericardial effusion is seen. No lymphadenopathy seen. Three-vessel aortic arch and central pulmonary vascular the appear within normal limits within the resolution of this exam. Images at the base of neck demonstrate no significant findings. Subcutaneous tissues demonstrate no significant findings. Images of the upper abdomen demonstrate no significant findings. Imaged bony elements appear intact. IMPRESSION: No consolidation or pleural effusion. Bibasilar atelectasis seen.Subtle focal more confluent opacity at the bases bilaterally are seen andalthough atelectasis may have similar appearance although, less likely evolving airspace disease processes are not excluded. Follow-up as needed. Jarred Rod MD CT Final Resul t * CREATININE WHOLE BLOOD (04/28/2019 7:20 AM CDT) CREATININE WHOLE BLOOD 1.0 0.60 - 1.10 mg/dL 04/28/2019 8:25 AM CDT [facility] LAB ORDERS INTERFACE 04/28/2019 7:20 AM CDT Jarred Rod MD LABORATORY Final Resul t [facility] LAB ORDERS INTERFACE US documented in this encounter Visit Diagnoses Diagnosis Solitary pulmonary nodule Complex cyst of right ovary documented in this encounter Administered Medications Inactive Administered Medications - up to 3 most recent administrations Medication Order MAR Action Action Date Dose Rate Site iopamidol (ISOVUE-370) 76 % injection 100 mL 100 mL, Intravenous, IMG once as needed, Contrast, 1 dose, Starting on 04/28/19 at 0846, Until 04/28/19 at 0847 Given 04/28/2019 8:47 AM CDT 100 mLs documented in this encounter Care Teams Dyed Yarn Operator Relationship Specialty Start Date End Date Jarred Rod MD PCP - General FAMILY PRACTICE 07/21/15 09/30/20 documented as of this encounter
--- OUTSIDE RECORDS SUMMARY | 2024-03-02 22:32 | XMS_ITS | Encounter Summary ---
Author Organization [facility] Address [address] [place] [address]. [place], [place] [address] [place] [address] Care Team Providers Care Tape Fastener Machine Operator Name Role Phone Jarred Rod MD Primary Care Provider Unav ailable Shira Shi PA-C Primary Care Provider +1- [phone] Jarred Rod MD Primary Care Provider Unav ailable Colton SILVEIRA MD, Abiodun L Primary Care Provider Jarred Rod MD Primary Care Provider Unav ailable Encounter Details Date Type Department Care Team (Latest Contact Info) Description 08/01/2018 Scan HEALTH INFO SRVCS Scanned, Documents Social [...] COVID-19? No / Unsure 01/24/2021 11:10 AM MACHINIST JOB SETTER documented as of this encounter Functional Status [...] st Contact Info) Description 03/14/2024 11:45 AM MACHINIST JOB SETTER Office Visit [facility] [phone] Marvin Mckeon MD Three [facility] [address] [place] [phone] 03/20/2024 11:30 AM MACHINIST JOB SETTER Office Visit [facility] Family Medicine - [address] [address] Abiodun Segura II, MD [address] [place] [phone] documented as of this encounter Visit Diagnoses Not on filedocumented in this encounter Additional Health Concerns Infection Onset Date Last Indicated Resolved Time COVID-19 Rule Out 09/22/2019 09/22/2019 09/24/2019 11:13 PM CDT COVID-19 Rule Out 11/02/2019 11/02/2019 11/03/2019 3:22 PM CDT COVID-19 Rule Out 12/13/2019 12/13/2019 12/14/2019 3:06 PM CDT COVID-19 Confirmed 12/13/2019 12/13/2019 0 12:34 AM MACHINIST JOB SETTER documented as of this encounter Care Teams Tape Fastener Machine Operator Relationship Specialty Start Date End Date Jarred Rod MD PCP - General FAMILY PRACTICE 07/21/15 09/30/20 Shira Shi, JESUSC [address] [place] [phone] PCP - General PHYSICIAN STEAMFITTER APPRENTICE 10/01/20 11/17/20 Jarred Rod MD [address] [place] [phone] PCP - General FAMILY PRACTICE 11/18/20 12/05/20 Abiodun Segura II, MD [address] [place] [id number] PCP - General FAMILY PRACTICE 12/06/20 01/16/21 Jarred Rod MD [address] [place] [phone] PCP - General FAMILY PRACTICE 01/17/21 03/08/21 documented as of this encounter
--- OUTSIDE RECORDS SUMMARY | 2024-03-02 22:32 | XMS_ITS | Encounter Summary ---
Author Organization [facility] Address [address] [place] [address]. [place], [place] [phone] [place] [address] Care Team Providers Care Logistics Service Representative Name Role Phone Jarred Rod MD Primary Care Provider Unav ailable Shira Shi PA-C Primary Care Provider +1- [phone] Jarred Rod MD Primary Care Provider Unav ailable Colton SILVEIRA MD, Abiodun L Primary Care Provider Jarred Rod MD Primary Care Provider Unav ailable Reason for Visit * Reason Comments Pathology (SCAN) Procedure (SCAN) Encounter Details Date Type Department Care Team (Late st Contact Info) Description 09/10/2017 Scan HEALTH INFO SRVCS Scanned, Documents Pathology (SCAN); Procedure (SCAN) Social History Tobacco Use Types [...] COVID-19? No / Unsure 01/24/2021 11:10 AM TECHNICAL SOLUTIONS DIRECTOR documented as of this encounter Functional Status [...] st Contact Info) Description 03/14/2024 11:45 AM TECHNICAL SOLUTIONS DIRECTOR Office Visit [facility] [phone] Marvin Mckeon MD [facility] [address] [place] [address] 03/20/2024 11:30 AM TECHNICAL SOLUTIONS DIRECTOR Office Visit [facility] Medical [facility] Family Medicine - [place] 100 [place] [address] Abiodun Segura II, MD 100 [place] [address] documented as of this encounter Procedures Procedure Name Priority Date/Time Associated Diagnosis Comments PATHOLOGY GENERIC (SCAN ORDER) 09/10/2017 PROCEDURE GENERIC (SCAN ORDER) 09/10/2017 documented in this encounter Results * PROCEDURE GENERIC (09/10/2017) 09/10/2017 Narrative 09/10/2017 Ordered by an unspecified provider. us Documents Scanned SCANNING Final Result * PATHOLOGY GENERIC (09/10/2017) 09/10/2017 Narrative 09/10/2017 Ordered by an unspecified provider. us Documents [...] COVID-19 Confirmed 12/13/2019 12/13/2019 0 12:34 AM TECHNICAL SOLUTIONS DIRECTOR documented as of this encounter Care Teams Logistics Service Representative Relationship Specialty Start Date End Date Jarred Rod MD PCP - General FAMILY PRACTICE 07/21/15 09/30/20 Shira Shi PA-C [address] [place] [phone] PCP - General PHYSICIAN WOOD BUFFER 10/01/20 11/17/20 Jarred Rod MD [address] [place] [phone] PCP - General FAMILY PRACTICE 11/18/20 12/05/20 Abiodun Segura II, MD [address] [place] [phone] PCP - General FAMILY PRACTICE 12/06/20 01/16/21 Jarred Rod MD [address] [place] [phone] PCP - General FAMILY PRACTICE 01/17/21 03/08/21 documented as of this encounter
--- OUTSIDE RECORDS SUMMARY | 2024-03-02 22:32 | XMS_ITS | Encounter Summary ---
Author Organization [facility] Address [address] [place] [address]. [place], [place] [address] [place] [address] Care Team Providers Care Dental Ceramist Helper Name Role Phone Jarred Rod MD Primary Care Provider Unav ailable Shira Shi PA-C Primary Care Provider +1- [phone] Jarred Rod MD Primary Care Provider Unav ailable Colton SILVEIRA MD, Abiodun L Primary Care Provider Jarred Rod MD Primary Care Provider Unav ailable Reason for Visit * Reason Comments Mammogram (SCAN) Encounter Details Date Type Department Care Team (Late st Contact Info) Description 11/12/2018 Scan HEALTH INFO SRVCS Scanned, Documents Mammogram [...] COVID-19? No / Unsure 01/24/2021 11:10 AM COORDINATOR VOLUNTEER SERVICES documented as of this encounter Functional Status [...] st Contact Info) Description 03/14/2024 11:45 AM COORDINATOR VOLUNTEER SERVICES Office Visit [facility] [phone] Marvin Mckeon MD Three [facility] [address] [place] [address] 03/20/2024 11:30 AM COORDINATOR VOLUNTEER SERVICES Office Visit [facility] Family Medicine - [place] 100 [place] [address] Abiodun Segura II, MD 100 [place], [place] [phone] documented as of this encounter Procedures Procedure Name Priority Date/Time Associated Diagnosis Comments MAMMOGRAM GENERIC (SCAN ORDER) 11/12/2018 documented in this encounter Results * MAMMOGRAM GENERIC (11/12/2018) Anatomical Region Laterality Modality Other 11/12/2018 Narrative 11/12/2018 Ordered by an unspecified provider. us Documents [...] COVID-19 Confirmed 12/13/2019 12/13/2019 0 12:34 AM COORDINATOR VOLUNTEER SERVICES documented as of this encounter Care Teams Dental Ceramist Helper Relationship Specialty Start Date End Date Jarred Rod MD PCP - General FAMILY PRACTICE 07/21/15 09/30/20 Shira Shi PA-C [address] [place] [address] 20578 PCP - General PHYSICIAN MANAGER CLIENT SUPPORT 10/01/20 11/17/20 Jarred Rod MD [address] [place] [address] 34243 PCP - General FAMILY PRACTICE 11/18/20 12/05/20 Abiodun Segura II, MD [address] [place] [address] PCP - General FAMILY PRACTICE 12/06/20 01/16/21 Jarred Rod MD [address] [place] [address]84 PCP - General FAMILY PRACTICE 01/17/21 03/08/21 documented as of this encounter
--- OUTSIDE RECORDS SUMMARY | 2024-03-02 22:32 | XMS_ITS | Encounter Summary ---
Author Organization [facility] Address [address] [place] [address]. [place], [place] [address] [place] [address] Care Team Providers Care Kennel Worker Name Role Phone Jarred Rod MD Primary Care Provider Unav ailable Shira Shi PA-C Primary Care Provider +1- [phone] Jarred Rod MD Primary Care Provider Unav ailable Colton SILVEIRA MD, Abiodun L Primary Care Provider Jarred Rod MD Primary Care Provider Unav ailable Encounter Details Date Type Department Care Team (Latest Contact Info) Description 01/22/2019 Scan HEALTH INFO SRVCS Scanned, Documents Social [...] No / Unsure 01/24/2021 11:10 AM AIR CONDITIONING MANAGER documented as of this encounter Functional [...] Contact Info) Description 03/14/2024 11:45 AM AIR CONDITIONING MANAGER Office Visit [facility] [address] Marvin Mckeon MD Three [facility] [address] [place] [address] [phone] 03/20/2024 11:30 AM AIR CONDITIONING MANAGER Office Visit [facility] Family Medicine - [address] [address] Abiodun Segura II, MD [address] [place] [address] [phone] documented as of this encounter Visit Diagnoses Not on filedocumented in this encounter Additional Health Concerns Infection Onset Date Last Indicated Resolved Time COVID-19 Rule Out 09/22/2019 09/22/2019 09/24/2019 11:13 PM CDT COVID-19 Rule Out 11/02/2019 11/02/2019 11/03/2019 3:22 PM CDT COVID-19 Rule Out 12/13/2019 12/13/2019 12/14/2019 3:06 PM CDT COVID-19 Confirmed 12/13/2019 12/13/2019 0 12:34 AM AIR CONDITIONING MANAGER documented as of this encounter Care Teams Kennel Worker Relationship Specialty Start Date End Date Jarred Rod MD PCP - General FAMILY PRACTICE 07/21/15 09/30/20 Shira Shi, JESUSC [address] [place] [address]64 PCP - General PHYSICIAN TOPOLOGY TEACHER 10/01/20 11/17/20 Jarred Rod MD [address] [place] [address] 27570 PCP - General FAMILY PRACTICE 11/18/20 12/05/20 Abiodun Segura II, MD [address] [place] [address] 10546 PCP - General FAMILY PRACTICE 12/06/20 01/16/21 Jarred Rod MD [address] [place] [address]291 PCP - General FAMILY PRACTICE 01/17/21 03/08/21 documented as of this encounter
--- OUTSIDE RECORDS SUMMARY | 2024-03-02 22:32 | XMS_ITS | Encounter Summary ---
Author Organization [facility] Address [address] [place] [address]. [place], [place] [address] [place] [address] Care Team Providers Care Temporary Staff Accountant Name Role Phone Jarred Rod MD Primary Care Provider Unav ailable Shira Shi PA-C Primary Care Provider +1- [phone] Jarred Rod MD Primary Care Provider Unav ailable Colton SILVEIRA MD, Abiodun L Primary Care Provider Jarred Rod MD Primary Care Provider Unav ailable Encounter Details Date Type Department Care Team (Latest Contact Info) Description 11/07/2017 Scan HEALTH INFO SRVCS Scanned, Documents Social [...] COVID-19? No / Unsure 01/24/2021 11:10 AM TELEPHONE LINEWORKER documented as of this encounter Functional Status [...] st Contact Info) Description 03/14/2024 11:45 AM TELEPHONE LINEWORKER Office Visit [facility] [phone] Marvin Mckeon MD Three [facility] [address] [place] [address] [phone] 03/20/2024 11:30 AM TELEPHONE LINEWORKER Office Visit [facility] Family Medicine - [address] [address] Abiodun Segura II, MD [address] [place] [address] [phone] documented as of this encounter Visit Diagnoses Not on filedocumented in this encounter Additional Health Concerns Infection Onset Date Last Indicated Resolved Time COVID-19 Rule Out 09/22/2019 09/22/2019 09/24/2019 11:13 PM CDT COVID-19 Rule Out 11/02/2019 11/02/2019 11/03/2019 3:22 PM CDT COVID-19 Rule Out 12/13/2019 12/13/2019 12/14/2019 3:06 PM CDT COVID-19 Confirmed 12/13/2019 12/13/2019 0 12:34 AM TELEPHONE LINEWORKER documented as of this encounter Care Teams Temporary Staff Accountant Relationship Specialty Start Date End Date Jarred Rod MD PCP - General FAMILY PRACTICE 07/21/15 09/30/20 Shira Shi, JESUSC [address] [place] [address] PCP - General PHYSICIAN ALODIZE MACHINE OPERATOR 10/01/20 11/17/20 Jarred Rod MD [address] [place] [address] PCP - General FAMILY PRACTICE 11/18/20 12/05/20 Abiodun Segura II, MD [address] [place] [address] PCP - General FAMILY PRACTICE 12/06/20 01/16/21 Jarred Rod MD [address] [place] [address] PCP - General FAMILY PRACTICE 01/17/21 03/08/21 documented as of this encounter
--- OUTSIDE RECORDS SUMMARY | 2024-03-02 22:32 | XMS_ITS | Encounter Summary ---
Author Organization [facility] Address [address] [place] [address]. [place], [place] [address] [place] [address] Care Team Providers Care Chucking And Sawing Machine Operator Name Role Phone Jarred Rod MD Primary Care Provider Unav ailable Shira Shi PA-C Primary Care Provider +1- [phone] Jarred Rod MD Primary Care Provider Unav ailable Colton SILVEIRA MD, Abiodun L Primary Care Provider Jarred Rod MD Primary Care Provider Unav ailable Reason for Visit * Reason Comments Lab (SCAN) Encounter Details Date Type Department Care Team (Latest Contact Info) Description 01/15/2018 Scan MG HEALTH INFO SRVCS Scanned, Documents [...] COVID-19? No / Unsure 01/24/2021 11:10 AM HEAVY MACHINERY OPERATOR documented as of this encounter Functional [...] st Contact Info) Description 03/14/2024 11:45 AM HEAVY MACHINERY OPERATOR Office Visit [facility] [phone] Marvin Mckeon MD Three [facility] [address] [place] [address] 03/20/2024 11:30 AM HEAVY MACHINERY OPERATOR Office Visit [facility] Family Medicine - [place] 100 [place] [phone] Abiodun Segura II, MD 100 [place], [place] [phone] documented as of this encounter Procedures Procedure Name Priority Date/Time Associated Diagnosis Comments OUTSIDE LAB (SCAN ORDER) 01/15/2018 OUTSIDE LAB (SCAN ORDER) 01/15/2018 documented in this encounter Results * OUTSIDE LAB (SCAN) (01/15/2018) 01/15/2018 Narrative 01/15/2018 Ordered by an unspecified provider. us Documents Scanned SCANNING Final Result * OUTSIDE LAB (SCAN) (01/15/2018) 01/15/2018 Narrative 01/15/2018 Ordered by an unspecified provider. us Documents [...] COVID-19 Confirmed 12/13/2019 12/13/2019 0 12:34 AM HEAVY MACHINERY OPERATOR documented as of this encounter Care Teams Chucking And Sawing Machine Operator Relationship Specialty Start Date End Date Jarred Rod MD PCP - General FAMILY PRACTICE 07/21/15 09/30/20 Shira Shi PA-C 100 [place] [address] PCP - General PHYSICIAN RN COMPLEX CARE 10/01/20 11/17/20 Jarred Rod MD [address] [place] [address] PCP - General FAMILY PRACTICE 11/18/20 12/05/20 Abiodun Segura II, MD [address] [place] [address] PCP - General FAMILY PRACTICE 12/06/20 01/16/21 Jarred Rod MD [address] [place] [address] PCP - General FAMILY PRACTICE 01/17/21 03/08/21 documented as of this encounter
--- OUTSIDE RECORDS SUMMARY | 2024-03-02 22:32 | XMS_ITS | Encounter Summary ---
Author Organization [facility] Address [address] [place] [address]. [place], [place] [address] [place] [address] Care Team Providers Care Clam Digger Name Role Phone Jarred Rod MD Primary Care Provider Unav ailable Shira Shi PA-C Primary Care Provider +1- [phone] Jarred Rod MD Primary Care Provider Unav ailable Colton SILVEIRA MD, Abiodun L Primary Care Provider Jarred Rod MD Primary Care Provider Unav ailable Reason for Visit * Reason Comments Ultrasound (SCAN) Encounter Details Date Type Department Care Team (Late st Contact Info) Description 03/19/2018 Scan HEALTH INFO SRVCS Scanned, Documents Ultrasound [...] COVID-19? No / Unsure 01/24/2021 11:10 AM RIG WELDER documented as of this encounter Functional [...] st Contact Info) Description 03/14/2024 11:45 AM RIG WELDER Office Visit [facility] [phone] Marvin Mckeon MD Three [facility] [address] [place] [address] 03/20/2024 11:30 AM RIG WELDER Office Visit [facility] Family Medicine - [place] 100 [place] [phone] Abiodun Segura II, MD 100 [place], [place] [phone] documented as of this encounter Procedures Procedure Name Priority Date/Time Associated Diagnosis Comments ULTRASOUND GENERIC (SCAN ORDER) 03/19/2018 ULTRASOUND GENERIC (SCAN ORDER) 03/19/2018 documented in this encounter Results * ULTRASOUND GENERIC (03/19/2018) Anatomical Region Laterality Modality Other 03/19/2018 Narrative 03/19/2018 Ordered by an unspecified provider. us Documents Scanned SCANNING Final Result * ULTRASOUND GENERIC (03/19/2018) Anatomical Region Laterality Modality Other 03/19/2018 Narrative 03/19/2018 Ordered by an unspecified provider. us Documents [...] COVID-19 Confirmed 12/13/2019 12/13/2019 0 12:34 AM RIG WELDER documented as of this encounter Care Teams Clam Digger Relationship Specialty Start Date End Date Jarred Rod MD PCP - General FAMILY PRACTICE 07/21/15 09/30/20 Shira Shi PA-C [address] [place] [address] PCP - General PHYSICIAN ENROLLMENT ADVISOR 10/01/20 11/17/20 Jarred Rod MD [address] [place] [address]39 PCP - General FAMILY PRACTICE 11/18/20 12/05/20 Abiodun Segura II, MD [address] [place] [address] 11954 PCP - General FAMILY PRACTICE 12/06/20 01/16/21 Jarred Rod MD [address] [place] [address] PCP - General FAMILY PRACTICE 01/17/21 03/08/21 documented as of this encounter
--- OUTSIDE RECORDS SUMMARY | 2024-03-02 22:32 | XMS_ITS | Encounter Summary ---
Author Organization [facility] Address [address] [place] [address]. [place], [place] [address] [place] [address] Care Team Providers Care Sugar Coating Hand Name Role Phone Jarred Rod MD Primary Care Provider Unav ailable Shira Shi PA-C Primary Care Provider +1- [phone] Jarred Rod MD Primary Care Provider Unav ailable Colton SILVEIRA MD, Abiodun L Primary Care Provider Jarred Rod MD Primary Care Provider Unav ailable Encounter Details Date Type Department Care Team (Latest Contact Info) Description 10/07/2018 Scan HEALTH INFO SRVCS Scanned, Documents Social [...] COVID-19? No / Unsure 01/24/2021 11:10 AM ATG JAVA DEVELOPER documented as of this encounter Functional Status [...] st Contact Info) Description 03/14/2024 11:45 AM ATG JAVA DEVELOPER Office Visit [facility] [phone] Marvin Mckeon MD Three [facility] [address] [place] [phone] 03/20/2024 11:30 AM ATG JAVA DEVELOPER Office Visit [facility] Family Medicine - [address] [phone] Abiodun Segura II, MD [address] [place] [address] [phone] documented as of this encounter Visit Diagnoses Not on filedocumented in this encounter Additional Health Concerns Infection Onset Date Last Indicated Resolved Time COVID-19 Rule Out 09/22/2019 09/22/2019 09/24/2019 11:13 PM CDT COVID-19 Rule Out 11/02/2019 11/02/2019 11/03/2019 3:22 PM CDT COVID-19 Rule Out 12/13/2019 12/13/2019 12/14/2019 3:06 PM CDT COVID-19 Confirmed 12/13/2019 12/13/2019 0 12:34 AM ATG JAVA DEVELOPER documented as of this encounter Care Teams Sugar Coating Hand Relationship Specialty Start Date End Date Jarred Rod MD PCP - General FAMILY PRACTICE 07/21/15 09/30/20 Shira Shi, JESUSC [address] [place] [address] PCP - General PHYSICIAN EXTRUSION DIE COORDINATOR 10/01/20 11/17/20 Jarred Rod MD [address] [place] [address]20 PCP - General FAMILY PRACTICE 11/18/20 12/05/20 Abiodun Segura II, MD [address] [place] [address] 84391 PCP - General FAMILY PRACTICE 12/06/20 01/16/21 Jarred Rod MD [address] [place] [address] PCP - General FAMILY PRACTICE 01/17/21 03/08/21 documented as of this encounter
--- OUTSIDE RECORDS SUMMARY | 2024-03-02 22:32 | XMS_ITS | Encounter Summary ---
Author Organization [facility] Address [address] [place] [address]. [place], [place] [address] [place] [address] Care Team Providers Care Nurse Practitioner Adult Name Role Phone Jarred Rod MD Primary Care Provider Unav ailable Shira Shi PA-C Primary Care Provider +1- [phone] Jarred Rod MD Primary Care Provider Unav ailable Colton SILVEIRA MD, Abiodun L Primary Care Provider Jarred Rod MD Primary Care Provider Unav ailable Reason for Visit * Reason Comments Lab (SCAN) Encounter Details Date Type Department Care Team (Latest Contact Info) Description 06/27/2018 Scan HEALTH INFO SRVCS Scanned, Documents Lab [...] No / Unsure 01/24/2021 11:10 AM SALESPERSON FASHION ACCESSORIES documented as of this encounter Functional Status [...] Contact Info) Description 03/14/2024 11:45 AM SALESPERSON FASHION ACCESSORIES Office Visit [facility] [phone] Marvin Mckeon MD [facility] [address] [place] [address] 03/20/2024 11:30 AM SALESPERSON FASHION ACCESSORIES Office Visit [facility] Family Medicine - [place] 100 [place] [phone] Abiodun Segura II, MD 100 [place], [place] [phone] documented as of this encounter Procedures Procedure Name Priority Date/Time Associated Diagnosis Comments OUTSIDE LAB (SCAN ORDER) 06/27/2018 documented in this encounter Results * OUTSIDE LAB (SCAN) (06/27/2018) 06/27/2018 Narrative 06/27/2018 Ordered by an unspecified provider. us Documents [...] Confirmed 12/13/2019 12/13/2019 0 12:34 AM SALESPERSON FASHION ACCESSORIES documented as of this encounter Care Teams Nurse Practitioner Adult Relationship Specialty Start Date End Date Jarred Rod MD PCP - General FAMILY PRACTICE 07/21/15 09/30/20 Shira Shi PA-C [address] [place] [address] PCP - General PHYSICIAN DEBURRING AND TOOLING MACHINE OPERATOR 10/01/20 11/17/20 Jarred Rod MD [address] [place] [address] 31938 PCP - General FAMILY PRACTICE 11/18/20 12/05/20 Abiodun Segura II, MD [address] [place] [address] PCP - General FAMILY PRACTICE 12/06/20 01/16/21 Jarred Rod MD [address] [place] [address] PCP - General FAMILY PRACTICE 01/17/21 03/08/21 documented as of this encounter
--- OUTSIDE RECORDS SUMMARY | 2024-03-02 22:32 | XMS_ITS | Encounter Summary ---
Author Organization [facility] Address [address] [place] [address]. [place], [place] [address] [place] [address] Care Team Providers Care Stamp Analyst Name Role Phone Jarred Rod MD Primary Care Provider Unav ailable Shira Shi PA-C Primary Care Provider +1- [phone] Jarred Rod MD Primary Care Provider Unav ailable Colton SILVEIRA MD, Abiodun L Primary Care Provider Jarred Rod MD Primary Care Provider Unav ailable Reason for Visit * Reason Comments Image (SCAN) Encounter Details Date Type Department Care Team (Latest Contact Info) Description 12/14/2017 Scan HEALTH INFO SRVCS Scanned, Documents Image [...] COVID-19? No / Unsure 01/24/2021 11:10 AM NOTE KEEPER documented as of this encounter Functional Status [...] st Contact Info) Description 03/14/2024 11:45 AM NOTE KEEPER Office Visit [facility] [phone] Marvin Mckeon MD Three [facility] [address] [place] [address] 03/20/2024 11:30 AM NOTE KEEPER Office Visit [facility] Family Medicine - [place] 100 [place] [phone] Abiodun Segura II, MD 100 [place], [place] [phone] documented as of this encounter Procedures Procedure Name Priority Date/Time Associated Diagnosis Comments IMAGE GENERIC 12/14/2017 documented in this encounter Results * IMAGE GENERIC (12/14/2017) Anatomical Region Laterality Modality Other 12/14/2017 Narrative 12/14/2017 Ordered by an unspecified provider. us Documents [...] COVID-19 Confirmed 12/13/2019 12/13/2019 0 12:34 AM NOTE KEEPER documented as of this encounter Care Teams Stamp Analyst Relationship Specialty Start Date End Date Jarred Rod MD PCP - General FAMILY PRACTICE 07/21/15 09/30/20 Shira Shi PA-C [address] [place] [address] PCP - General PHYSICIAN DAIRY FARMER 10/01/20 11/17/20 Jarred Rod MD [address] [place] [address] 18959 PCP - General FAMILY PRACTICE 11/18/20 12/05/20 Abiodun Segura II, MD [address] [place] [address] PCP - General FAMILY PRACTICE 12/06/20 01/16/21 Jarred Rod MD [address] [place] [address]459 PCP - General FAMILY PRACTICE 01/17/21 03/08/21 documented as of this encounter
--- OUTSIDE RECORDS SUMMARY | 2024-03-02 22:32 | XMS_ITS | Encounter Summary ---
Author Organization [facility] Address [address] [place] [address]. [place], [place] [address] [place] [address] Care Team Providers Care Girl Friday Name Role Phone Jarred Rod MD Primary Care Provider Unav ailable Shira Shi PA-C Primary Care Provider +1- [phone] Jarred Rod MD Primary Care Provider Unav ailable Colton SILVEIRA MD, Abiodun L Primary Care Provider Jarred Rod MD Primary Care Provider Unav ailable Encounter Details Date Type Department Care Team (Latest Contact Info) Description 05/14/2018 Scan HEALTH INFO SRVCS Scanned, Documents Social [...] COVID-19? No / Unsure 01/24/2021 11:10 AM ALTERATION MANAGER documented as of this encounter Functional [...] st Contact Info) Description 03/14/2024 11:45 AM ALTERATION MANAGER Office Visit [facility] [phone] Marvin Mckeon MD Three [facility] [address] [place] [address] [phone] 03/20/2024 11:30 AM ALTERATION MANAGER Office Visit [facility] Family Medicine - [address] [phone] Abiodun Segura II, MD [address] [place] [address] [phone] documented as of this encounter Visit Diagnoses Not on filedocumented in this encounter Additional Health Concerns Infection Onset Date Last Indicated Resolved Time COVID-19 Rule Out 09/22/2019 09/22/2019 09/24/2019 11:13 PM CDT COVID-19 Rule Out 11/02/2019 11/02/2019 11/03/2019 3:22 PM CDT COVID-19 Rule Out 12/13/2019 12/13/2019 12/14/2019 3:06 PM CDT COVID-19 Confirmed 12/13/2019 12/13/2019 0 12:34 AM ALTERATION MANAGER documented as of this encounter Care Teams Girl Friday Relationship Specialty Start Date End Date Jarred Rod MD PCP - General FAMILY PRACTICE 07/21/15 09/30/20 Shira Shi, JESUSC [address] [place] [address] PCP - General PHYSICIAN MANAGER HYDRAULIC 10/01/20 11/17/20 Jarred Rod MD [address] [place] [address] 26394 PCP - General FAMILY PRACTICE 11/18/20 12/05/20 Abiodun Segura II, MD [address] [place] [address]226 PCP - General FAMILY PRACTICE 12/06/20 01/16/21 Jarred Rod MD [address] [place] [address] PCP - General FAMILY PRACTICE 01/17/21 03/08/21 documented as of this encounter
--- OUTSIDE RECORDS SUMMARY | 2024-03-02 22:32 | XMS_ITS | Encounter Summary ---
Author Organization [facility] Address [address] [place] [address]. [place], [place] [address] [place] [address] Care Team Providers Care Branch Examiner Name Role Phone Jarred Rod MD Primary Care Provider Unav ailable Shira Shi PA-C Primary Care Provider +1- [phone] Jarred Rod MD Primary Care Provider Unav ailable Colton SILVEIRA MD, Abiodun L Primary Care Provider Jarred Rod MD Primary Care Provider Unav ailable Encounter Details Date Type Department Care Team (Latest Contact Info) Description 11/22/2017 Scan HEALTH INFO SRVCS Scanned, Documents Social [...] COVID-19? No / Unsure 01/24/2021 11:10 AM DIRECTOR OF SUSTAINABILITY documented as of this encounter Functional Status [...] Info) Description 03/14/2024 11:45 AM DIRECTOR OF SUSTAINABILITY Office Visit [facility] [phone] Marvin Mckeon MD Three [facility] [address] [place] [address] [phone] 03/20/2024 11:30 AM DIRECTOR OF SUSTAINABILITY Office Visit [facility] Family Medicine - [address] [phone] Abiodun Segura II, MD [address] [place] [address] [phone] documented as of this encounter Visit Diagnoses Not on filedocumented in this encounter Additional Health Concerns Infection Onset Date Last Indicated Resolved Time COVID-19 Rule Out 09/22/2019 09/22/2019 09/24/2019 11:13 PM CDT COVID-19 Rule Out 11/02/2019 11/02/2019 11/03/2019 3:22 PM CDT COVID-19 Rule Out 12/13/2019 12/13/2019 12/14/2019 3:06 PM CDT COVID-19 Confirmed 12/13/2019 12/13/2019 0 12:34 AM DIRECTOR OF SUSTAINABILITY documented as of this encounter Care Teams Branch Examiner Relationship Specialty Start Date End Date Jarred Rod MD PCP - General FAMILY PRACTICE 07/21/15 09/30/20 Shira Shi, JESUSC [address] [place] [phone] PCP - General PHYSICIAN DIRECTOR LAW ENFORCEMENT 10/01/20 11/17/20 Jarred Rod MD [address] [place] [address] PCP - General FAMILY PRACTICE 11/18/20 12/05/20 Abiodun Segura II, MD [address] [place] [address]87 PCP - General FAMILY PRACTICE 12/06/20 01/16/21 Jarred Rod MD [address] [place] [address]295 PCP - General FAMILY PRACTICE 01/17/21 03/08/21 documented as of this encounter
--- OUTSIDE RECORDS SUMMARY | 2024-03-02 22:33 | XMS_ITS | Encounter Summary ---
Author Organization [facility] Address [address] [place] [address]. [place], [place] [address] [place] [address] Care Team Providers Care Auto Body Mechanic Apprentice Name Role Phone Jarred Rod MD Primary Care Provider Unav ailable Crispin Gomez MD Unavailable [phone] Jarred Rod MD Primary Care Provider Unav ailable Jarred Rod MD Primary Care Provider Unav ailable Jarred Rod MD Primary Care Provider Unav ailable Jarred Rod MD Primary Care Provider Unav ailable Encounter Details Date Type Department Care Team (Late st Contact Info) Description 05/08/2006 Emergency [facility] Emergency Room [place], [place] [id number] Nick Augustin MD [address] [address] Social History Tobacco Use Types Packs/Day Years [...] st Contact Info) Description 03/14/2024 11:45 AM MARKETING RESEARCHER Office Visit [facility] [phone] Marvin Mckeon MD Three [facility] [address] [place] [address] 03/20/2024 11:30 AM MARKETING RESEARCHER Office Visit [facility] Family Medicine - [place] 100 [place] [phone] Abiodun Segura II, MD 100 [place], [place] [phone] documented as of this encounter Visit Diagnoses Not on filedocumented in this encounter Care Teams Auto Body Mechanic Apprentice Relationship Specialty Start Date End Date Jarred Rod MD PCP - General FAMILY PRACTICE 07/21/15 09/30/20 Jarred Rod MD PCP - General 05/05/14 07/20/15 Jarred Rod MD PCP - General 03/03/13 05/04/14 Jarred Rod MD PCP - General 12/02/12 03/02/13 Jarred Rod MD PCP - General 11/07/12 12/01/12 Crispin Gomez MD Three [facility]. DAVID [address] [place], [place] [id number] [place] [facility] Director INTERNAL MEDICINE 07/21/15 documented as of this encounter
--- OUTSIDE RECORDS SUMMARY | 2024-03-02 22:33 | XMS_ITS | Encounter Summary ---
Author Organization [facility] Address [address] [place] [address]. [place] [address] [place] [address] Care Team Providers Care Robot Technician Name Role Phone Jarred Rod MD Primary Care Provider Unav ailable Crispin Gomez MD Unavailable [phone] Jarred Rod MD Primary Care Provider Unav ailJarred Hayden MD Primary Care Provider Unav ailable Jarred Rod MD Primary Care Provider Unav ailable Jarred Rod MD Primary Care Provider Unav ailable Encounter Details Date Type Department Care Team (Late st Contact Info) Description 12/25/2005 Abstract [facility] ONE [place], [place] [id number] Giacomo Galaviz MD Social History Tobacco Use Types Packs/Day Years [...] st Contact Info) Description 03/14/2024 11:45 AM TRAFFIC AGENT Office Visit [facility] [address] Marvin Mckeon MD [address] [facility] [address] [place] [address] 03/20/2024 11:30 AM TRAFFIC AGENT Office Visit [facility] Family Medicine - [place] 100 [place] [phone] Abiodun Segura II, MD 100 [place] [address] documented as of this encounter Visit Diagnoses Not on filedocumented in this encounter Care Teams Robot Technician Relationship Specialty Start Date End Date Jarred Rod MD PCP - General FAMILY PRACTICE 07/21/15 09/30/20 Jarred Rod MD PCP - General 05/05/14 07/20/15 Jarred Rod MD PCP - General 03/03/13 05/04/14 Jarred Rod MD PCP - General 12/02/12 03/02/13 Jarred Rod MD PCP - General 11/07/12 12/01/12 Crispin Gomez MD [facility] [place] [address] [place] Various Exceptionalities Teacher INTERNAL MEDICINE 07/21/15 documented as of this encounter
--- OUTSIDE RECORDS SUMMARY | 2024-03-02 22:33 | XMS_ITS | Encounter Summary ---
Author Organization [facility] Address [address] [place] [address]. [place], [place] [address] [place] [address] Care Team Providers Care Real Estate Utilization Officer Name Role Phone Jarred Rod MD Primary Care Provider Unav ailable Shira Shi PA-C Primary Care Provider [phone] Jarred Rod MD Primary Care Provider Unav ailable Colton SILVEIRA MD, Abiodun L Primary Care Provider Jarred Rod MD Primary Care Provider Unav ailable Encounter Details Date Type Department Care Team (Latest Contact Info) Description 05/01/2017 Scan HEALTH INFO SRVCS Scanned, Documents Social [...] No / Unsure 01/24/2021 11:10 AM HEAVY EQUIPMENT ENGINE MECHANIC documented as of this encounter Functional Status [...] Contact Info) Description 03/14/2024 11:45 AM HEAVY EQUIPMENT ENGINE MECHANIC Office Visit [facility] [address] Marvin Mckeon MD Three [facility] [address] [place] [phone] 03/20/2024 11:30 AM HEAVY EQUIPMENT ENGINE MECHANIC Office Visit [facility] Family Medicine - [address] [address] Abiodun Segura II, MD [address] [place] [phone] documented as of this encounter Visit Diagnoses Not on filedocumented in this encounter Additional Health Concerns Infection Onset Date Last Indicated Resolved Time COVID-19 Rule Out 09/22/2019 09/22/2019 09/24/2019 11:13 PM CDT COVID-19 Rule Out 11/02/2019 11/02/2019 11/03/2019 3:22 PM CDT COVID-19 Rule Out 12/13/2019 12/13/2019 12/14/2019 3:06 PM CDT COVID-19 Confirmed 12/13/2019 12/13/2019 0 12:34 AM HEAVY EQUIPMENT ENGINE MECHANIC documented as of this encounter Care Teams Real Estate Utilization Officer Relationship Specialty Start Date End Date Jarred Rod MD PCP - General FAMILY PRACTICE 07/21/15 09/30/20 Shira Shi, JESUSC [address] [place] [address] PCP - General PHYSICIAN CAPSULE INSPECTOR 10/01/20 11/17/20 Jarred Rod MD [address] [place] [address] PCP - General FAMILY PRACTICE 11/18/20 12/05/20 Abiodun Seguar II, MD [address] [place] [address] PCP - General FAMILY PRACTICE 12/06/20 01/16/21 Jarred Rod MD [address] [place] [address] PCP - General FAMILY PRACTICE 01/17/21 03/08/21 documented as of this encounter
--- OUTSIDE RECORDS SUMMARY | 2024-03-02 22:33 | XMS_ITS | Encounter Summary ---
Author Organization [facility] Address [address] [place] [address]. [place], [place] [address] [place] [address] Care Team Providers Care Bunker Worker Name Role Phone Jarred Rod MD Primary Care Provider Unav ailable Shira Shi PA-C Primary Care Provider [phone] Jarred Rod MD Primary Care Provider Unav ailable Colton SILVEIRA MD, Abiodun L Primary Care Provider Jarred Rod MD Primary Care Provider Unav ailable Encounter Details Date Type Department Care Team (Latest Contact Info) Description 05/14/2017 Scan HEALTH INFO SRVCS Scanned, Documents Social [...] COVID-19? No / Unsure 01/24/2021 11:10 AM SNAG GRINDER documented as of this encounter Functional [...] st Contact Info) Description 03/14/2024 11:45 AM SNAG GRINDER Office Visit [facility] [address] Marvin Mckeon MD Three [facility] [address] [place] [phone] 03/20/2024 11:30 AM SNAG GRINDER Office Visit [facility] Family Medicine - [address] [address] Abiodun Segura II, MD [address] [place] [phone] documented as of this encounter Visit Diagnoses Not on filedocumented in this encounter Additional Health Concerns Infection Onset Date Last Indicated Resolved Time COVID-19 Rule Out 09/22/2019 09/22/2019 09/24/2019 11:13 PM CDT COVID-19 Rule Out 11/02/2019 11/02/2019 11/03/2019 3:22 PM CDT COVID-19 Rule Out 12/13/2019 12/13/2019 12/14/2019 3:06 PM CDT COVID-19 Confirmed 12/13/2019 12/13/2019 0 12:34 AM SNAG GRINDER documented as of this encounter Care Teams Bunker Worker Relationship Specialty Start Date End Date Jarred Rod MD PCP - General FAMILY PRACTICE 07/21/15 09/30/20 Shira Shi, JESUSC [address] [place] [address] PCP - General PHYSICIAN LOCOMOTIVE SWITCH OPERATOR 10/01/20 11/17/20 Jarred Rod MD [address] [place] [address] PCP - General FAMILY PRACTICE 11/18/20 12/05/20 Abiodun Segura II, MD [address] [place] [address] PCP - General FAMILY PRACTICE 12/06/20 01/16/21 Jarred Rod MD [address] [place] [address] PCP - General FAMILY PRACTICE 01/17/21 03/08/21 documented as of this encounter
--- OUTSIDE RECORDS SUMMARY | 2024-03-02 22:33 | XMS_ITS | Encounter Summary ---
Author Organization [facility] Address [address] [place] [address]. [place] [address] [place] [address] Care Team Providers Care Truck Driver Salesperson Name Role Phone Jarred Rod MD Primary Care Provider Unav ailCrispin Lloyd MD Unavailable [phone] Jarred Rod MD Primary Care Provider Unav ailJarred Hayden MD Primary Care Provider Unav ailable Jarred Rod MD Primary Care Provider Unav ailable Encounter Details Date Type Department Care Team (Late st Contact Info) Description 12/02/2012 Abstract [facility] [place] [address] Giacomo Galaviz MD Social History Tobacco Use [...] (Late Contact Info) Description 03/14/2024 11:45 AM LIEUTENANT SHIFT SUPERVISOR Office Visit [facility] [phone] Marvin Mckeon MD [facility] [address] [place] [address] 03/20/2024 11:30 AM LIEUTENANT SHIFT SUPERVISOR Office Visit [facility] Family Medicine - [place] 100 [place] [address] Abiodun Segura II, MD 100 [place] [address] documented as of this encounter Visit Diagnoses Diagnosis Closed fracture of metatarsal bone Closed fracture of metatarsal bone(s) documented in this encounter Care Teams Truck Driver Salesperson Relationship Specialty Start Date End Date Jarred Rod MD PCP - General FAMILY PRACTICE 07/21/15 09/30/20 Jarred Rod MD PCP - General 05/05/14 07/20/15 Jarred Rod MD PCP - General 03/03/13 05/04/14 Jarred Rod MD PCP - General 12/02/12 03/02/13 Crispin Gomez MD Three [facility]. DAVID [address] [place] [address] [place] Hand Stamper INTERNAL MEDICINE 07/21/15 documented as of this encounter
--- OUTSIDE RECORDS SUMMARY | 2024-03-02 22:33 | XMS_ITS | Encounter Summary ---
Author Organization [facility] Address [address] [place] [address]. [place] [address] [place] [address] Care Team Providers Care Plug Machine Operator Name Role Phone Jarred Rod MD Primary Care Provider UnaCrispin Myers MD Unavailable [phone] Encounter Details Date Type Department Care Team (Late st Contact Info) Description 01/17/2016 Orders Only [facility] [address] [place] [address] , Giacomo Rudolph MD Social History Tobacco Use Types Packs/Day [...] st Contact Info) Description 03/14/2024 11:45 AM BROWN SOURER Office Visit [facility]-[address] [address] Marvin Mckeon MD [facility] [address] [place], [place] [address] 03/20/2024 11:30 AM BROWN SOURER Office Visit [facility] Family Medicine - [place] 100 [place] [phone] Abiodun Segura II, MD 100 [place] [address] documented as of this encounter Procedures Procedure Name Priority Date/Time Associated Diagnosis Comments CARDIOLOGY GENERIC 01/17/2016 10 :36 AM BROWN SOURER documented in this encounter Results * CARDIOLOGY GENERIC (01/17/2016 10:36 AM BROWN SOURER) 01/17/2016 10:3 6 AM BROWN SOURER Narrative [facility] - 01/17/2016 12:00 AM BROWN SOURER ? LENA YOUNGBLOOD MD: SNEHA BIRMINGHAM MD ?? Acct: [id number] ?? Admit/Service Date: 01/17/16 Discharge Date: ?? : 1970 Pt Type: REG SDC ?? Sex: F Ord [facility] ?Test Date: ?2016-01-17 ?? Pat Name: ? LENA YOUNGBLOOD ?Department: CARD ?? 40 ? Room: ? DSUR1 ?? Gender: ? Female ? Drying Supervisor: ?? CKE ?? : ?1970 ? Requested By: SNEHA BIRMINGHAM ?? Order Number: [id number] ?Reading MD: ?? Oj Martinez ?Measurements ?? Intervals ?[place] ? Rate: ? 71 ? P: ?40 ?? IL: ? 180 ?QRS: ?11 ?? QRSD: ? 85 ? T: ?166 ?? QT: ? 393 ? QTc: ?428 ?Interpretive Statements ?? SINUS RHYTHM ?? MINIMAL VOLTAGE CRITERIA FOR LVH ?? NONSPECIFIC T-WAVE ABNORMALITY ?? Compared to ECG 01/02/2016 07:22:36 ?? No significant changes ?? N SOURER ? Procedure Note Oj Martinez MD - 01/17/2016 LENA YOUNGBLOOD Ordering MD: SNEHA BIRMINGHAM MD Acct: [id number] Admit/Service Date: 01/17/16 Discharge Date: : 1970 Pt Type: REG SDC Sex: F Ord Site: [address] Test Date: 2016-01-17 Pat Name: LENA FORD Department: CARD 40 Room: [facility] Gender: Female Drying Supervisor: RAMBO : 1970 Requested By: SNEHA ESCAMILLA Order Number: [id number] Reading MD: Oj Martinez Measurements Intervals [place] Rate: 71 P: 40 [place]: 180 QRS: 11 QRSD: 85 T: 166 QT: 393 QTc: 428 Interpretive Statements SINUS RHYTHM MINIMAL VOLTAGE CRITERIA FOR LVH NONSPECIFIC T-WAVE ABNORMALITY Compared to ECG 01/02/2016 07:22:36 No significant changes N SOURER us Generic Conversion Md [facility] Final Result [facility] documented in this encounter Visit Diagnoses Not on filedocumented in this encounter Care Teams Plug Machine Operator Relationship Specialty Start Date End Date Jarred Rod MD PCP - General FAMILY PRACTICE 07/21/15 09/30/20 Crispin Gomez MD Three [facility]. [address] [address] Chromo Mulling Machine Operator INTERNAL MEDICINE 07/21/15 documented as of this encounter
--- OUTSIDE RECORDS SUMMARY | 2024-03-02 22:33 | XMS_ITS | Encounter Summary ---
Author Organization [facility] Address [address] [place] [address]. [place] [address] [place] [address] Care Team Providers Care Language Pathologist Name Role Phone Jarred Rod MD Primary Care Provider Unav Crispin Peres MD Unavailable [phone] Encounter Details Date Type Department Care Team (Late st Contact Info) Description 12/23/[address] [facility] [facility] [place] [address] Joel Santiago MD [address] [place] [address] Social History Tobacco Use Types Packs/Day [...] st Contact Info) Description 03/14/2024 11:45 AM INDIVIDUAL PENSION ADVISER Office Visit [facility]-[address] [phone] Marvin Mckeon MD [address] [place] [address] 03/20/2024 11:30 AM INDIVIDUAL PENSION ADVISER Office Visit [facility] Family Medicine - [place] 100 [place] [phone] Abiodun Segura II, MD 100 [place] [address] documented as of this encounter Visit Diagnoses Diagnosis Muscle wasting and atrophy, not elsewhere classified, left ankle and foot documented in this encounter Care Teams Language Pathologist Relationship Specialty Start Date End Date Jarred Rod MD PCP - General FAMILY PRACTICE 07/21/15 09/30/20 Crispin Gomez MD [facility]. DAVID [address] [place] [address] [place] Driver Manager INTERNAL MEDICINE 07/21/15 documented as of this encounter
--- OUTSIDE RECORDS SUMMARY | 2024-03-02 22:33 | XMS_ITS | Encounter Summary ---
Author Organization [facility] Address [address] [place] [address]. [place] [address] [place] [address] Care Team Providers Care Microbiology Manager Name Role Phone Jarred Fernández MD Primary Care Provider Unav ailable Reason for Referral * (Urgent) - Closed Specialty Diagnoses / Procedures Referred By Contac t Referred To Contact Procedures MRI FOOT LT WO CON Sabrina Soria MD Referral ID Status Reason Start Date Expiration Date Visits Re quested Visits Authorized [id number] Closed 02/07/2017 03/10/2018 1 1 S BUFFER Reason for Visit * Reason Comments Wound DIABETIC WITH NEW WO UNDS ON LEFT FOOT, HX OF AMPUTATIONS, ODOR, DRAINAGE ON SOLE OF FOOT * Auth/Cert Specialty Diagnoses / Procedures Referred By Contac t Referred To Contact Diagnoses Foot osteomyelitis, left ([facility]/HCC HHS/HCC) Osteomyelitis Procedures INPT Referral ID Status Reason Start Date Expiration Date Visits Re quested Visits Authorized [id number] 1 1 Encounter Details Date Type Department Care Team (Latest Contact Info) Description 02/04/2017 10:57 AM BRASS BUFFER - 02/08/2017 2:30 PM BRASS BUFFER Hospital Encounter [facility] Med/Surg 3rd [place] [address] Jurgen Posadas, DNP [address] [facility] [address] [place] [address] Eduardo New MD [address] [facility] , [address] [place] [address] Sabrina Soria MD Wound (DIABETIC WITH NEW WOUNDS ON LEFT FOOT, HX OF AMPUTATIONS, ODOR, DRAINAGE ON SOLE OF FOOT) Discharge Disposition: Home or Self Care (Routine [...] Sign Reading Time Taken Comments Blood Pressure 116/58 02/08/2017 5:00 AM BRASS BUFFER Pulse 75 02/08/2017 5:00 AM BRASS BUFFER Temperature 36.8 ??C (98.2 ??F) 02/08/2017 5:00 AM CS T Respiratory Rate 20 02/08/2017 5:00 AM BRASS BUFFER Oxygen Saturation 100% 02/08/2017 5:00 AM BRASS BUFFER Inhaled Oxygen Concentration - - Weight 90.5 kg (199 lb 8.3 oz) 02/04/2017 3:18 P M BRASS BUFFER Height 167.6 cm (5' 6 ) 02/04/2017 3:18 PM BRASS BUFFER Body Mass Index 32.2 02/04/2017 3:18 PM BRASS BUFFER documented in this encounter Discharge Summaries * Sabrina Soria MD - 02/08/2017 12:00 AM CST REASON FOR ADMISSION: Left foot infection. DISCHARGE DIAGNOSES: Cellulitis of the left foot without abscess, without osteomyelitis. This is a 46-year-old female who had a history of diabetes, uncontrolled, hemoglobin A1c around 9 presented with left foot pain and foul- smelling and mild discharge who was admitted for further evaluation and tr eatment. 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 to history and physical for more details about her presentation and past medical history, PHYSICAL EXAMINATION: From today, blood pressure is 116/58, heart rate is 75, respirations 20, satting 100% on room air, afebrile 98.2. Patient is awake, alert, in no acute distress. Chest is clear to auscultation bilaterally. Heart is regular without murmur. Abdomen: Soft, no tenderness. Extremities are without edema. Her left foot with mild erythema, no drainage today. LABORATORY: White blood cells are 10.0, hemoglobin 10.4, platelets 262. Sodium 140, potassium 4.1, creatinine 1.09, glucose 141 this morning and slightly elevated liver enzymes. MRI showing no evidence of osteomyelitis. There are neuropathic changes and muscular atrophy of the foot. Initially, the chest x-ray showed evidence of possible osteomyelitis. His C-reactive protein is 2.9 and his hemoglobin A1c 9.5. ESR is 88. ASSESSMENT AND PLAN: 1. Left foot plantar surface. Mild drainage with redness, presented with cellulitis, started on IV antibiotics. ESR 88, CRP 2.9. MRI showed no evidence of osteomyelitis. I have discussed the case with Dr. Garcia, ID specialist yesterday. He is fine with oral antibiotics, Clindamycin and Levaquin (THE PATIENT IS ALLERGIC TO PENICILLINS). I have discussed the case as well with Dr. Hernandez who presented this morning to see the patient and no further workup is needed. 2. Diabetes. Hemoglobin A1c higher than 9. I explained to the patient that with these numbers she will suffer complications very soon. Her goal should be 7.5 and below at least and ideally 6.5. She told me that her blood sugar in the evenings are high, so I will increase her 70/30 Insulin to 55 units and keep the evening dose at 55. She says that her morning blood sugar is controlled. The patientunderstands the importance to take care of this problem to avoid complications that she started to have. 3. Hyperlipidemia. She is on statin. 4. Hypertension, doing well. 6. Chronic kidney disease likely related to her diabetes. Continue home medication. No nephrotoxic medications. 7. The patient understands that she needs to follow up with the wound care clinic to assure recovery. She had mild elevation in her liver enzymes and needs followup. Discharging this patient today consumed more than 35 minutes of my time. #[id number] /TR S BUFFER documented in this encounter Discharge Instructions * Discharge Instructions* Sabrina Soria MD - 02/08/2017 1:32 PM BRASS BUFFER Physician instructions: Take antibiotics as prescribed, follow up with the wound care clinic. Better control for your blood sugar is needed to avoid such complications and to prevent other complications including kidney failure blindness heart attack and stroke. Your insulin should be uptitrated, record your blood sugar 4 times a day and present these numbers to your primary care physician for further adjustment. You need to follow-up with the wound care clinic to avoid deterioration of her current situation. Come back with any deterioration. Liver enzymes are slightly elevated, needs follow up in 1 week. Daily dressing changes. S BUFFER documented in this encounter Medications at Time of Discharge Acidophilus Lactobacillus Cap Take 1 capsule by mouth 3 (three) times a day for 60 days. 90 capsule 2 02/08/2017 8 Doxycycline Hyclate 100 MG Tab EC Take 100 mg by mouth 2 (two) times a day for 10 days. 20 tablet 02/08/2017 7 HUMALOG MIX 75/25 (75-25) 100 UNIT/ML Suspension Take 55 units in AM and 50 units PM, this should be titrated depending on your blood sugar numbers. 1 vial 1 02/08/2017 2 hydrochlorothiazide 25 MG tablet Take 25 mg by mouth nightly. 1 levofloxacin 500 MG tablet Take 1.5 tablets (750 mg total) by mouth daily for 10 days. 10 days 15 tablet 02/08/2017 7 lisinopril 40 MG tablet Take 40 mg by mouth nightly. 11/03/2016 2 metoprolol tartrate 100 MG tablet Take 100 mg by mouth nightly. 12/28/2016 9 simvastatin 40 MG tablet Take 40 mg by mouth nightly at bedtime. 11/03/2016 2 vitamin B-12 100 MCG tablet Take 50 mcg by mouth daily. 0 documented as of this encounter Progress Notes * Adenike Dawson RN - 02/08/2017 2:07 PM CST 02/08 1408 L PT NEEDS WOUND CARE TO FOOT [facility] IS OUT OF NETWORK I CALLED [facility], THEY WILL ONLY ACCEPT THE PT IF A DR WITH PRIVILEGES AT [place] [facility] WRITES THE ORDER DR GARCIA HAS PRIVILEGES AT [place] [facility] AND HAS WRITTEN AN ORDER FOR WOUND CLINIC I HAVE FAXED THE ORDER AND A FACE SHEET TO DAMIÁN AT [facility] FAX: [phone] SHE STATED SHE WILL CONTACT KIM TO AUTH THE WOUND CLINIC AND WILL CALL THE PT TO SET UP AN APPT I WILL CALL THE PT EARLY NEXT WEEK TO MAKE SURE THIS HAS BEEN DONE S BUFFER * Wale Garcia MD - 02/08/2017 2:00 PM CST Subjective: Patient states she feels much better today. Minimal pain post debridement. Vital signs: Patient Vitals for the past 24 hrs: BP Temp Temp src Pulse Resp SpO2 02/08/17 0500 116/58 98.2 ??F (36.8 ??C) Oral 75 20 100 % 02/08/17 0013 107/54 98.7 ??F (37.1 ??C) Oral 72 18 100 % 02/07/17 2143 110/62 98.2 ??F (36.8 ??C) Oral 83 20 98 % PHYSICAL EXAM Gen: Not in distress HEENT: Neck supple Cardiovascular: Positive S1 and positive S2 Respiratory: Good air entry no rales or wheeze Abdomen: Positive bowel sounds nontender. Extremities: No edema Skin: Left foot plantar ulcer debrided wound is clean. No drainage Labs: Recent Labs Lab 02/06/17 0112 02/07/17 0434 02/08/17 0450 WBC 7.1 9.0 10.0 RBC 3.56* 3.71* 3.52* HGB 10.8* 11.1* 10.4* HCT 31.9* 33.3* 31.6* MCV 89.6 89.8 89.8 MCH 30.3 29.9 29.5 MCHC 33.9 33.3 32.9 PLT 240 281 262 RDW 12.4 12.6 12.9 MPV 10.8 11.3 11.2 PERNEU 51.8 62.1 65.7* PERLYM 38.4 28.3 25.8 PERMON 7.4 7.3 6.4 Recent Labs Lab 02/04/17 1134 02/05/17 0447 02/06/17 0112 02/07/17 0434 02/08/17 0450 NA 134* 138 139 136 140 K 4.4 4.0 4.3 4.2 4.1 CL 99* 103 104 104 106 CO2 27.7 28.2 27.6 24.3 27.3 AGAP 11.7 10.8 11.7 11.9 10.8 BUN 15 16 16 19* 18 CR 1.22* 0.94 0.90 1.03* 1.09* BUNCREATININ 12.3 17.1 17.7 18.4 16.5 GFRNON 53* >60 >60 >60 >60 GFR >60 >60 >60 >60 >60 GLU 236* 153* 226* 230* 141* CA 9.6 8.7 8.9 8.7 8.7 TP 9.8* 7.5 -- -- 7.5 ALB 3.6 2.6* -- -- 2.6* TBIL 0.3 0.2 -- -- 0.3 ALKP 166* 167* -- -- 174* AST 22 82* -- -- 47* ALT 28 62* -- -- 80* Invalid input(s): LACTATE, PROCALCITONIN Cultures: Blood: Results for orders placed or performed during the hospital encounter of 02/04/17 (from the past 168hour(s)) CULTURE, BACTERIA, BLOOD Collection Time: 02/04/17 11:34 AM Result Value Ref Range Spec. Description BLOOD Special Requests: FOREARM RIGHT Culture Result: NO GROWTH 4 DAYS CULTURE, BACTERIA, BLOOD Collection Time: 02/04/17 11:34 AM Result Value Ref Range Spec. Description BLOOD Special Requests: RAC Culture Result: NO GROWTH 4 DAYS Urine: No results found for this visit on 02/04/17 (from the past 168 hour(s)). Radiology studies: No results found for this or any previous visit. MRI of the foot was negative for osteomyelitis. Assessment and Plan: 1. Left diabetic foot infection with possible early superficial soft tissue abscess status post incision and drainage. Blood cultures are so far negative. MRI was negative for osteomyelitis. Currently on vancomycin monotherapy day #4. Transition to p.o. doxycycline and levofloxacin for 10 days. Okay for discharge planning if okay with others 2. Type 2 diabetes blood sugars poorly controlled with hemoglobin A1c of 9 advised on good glycemiccontrol. 3. Hypertension blood pressures are stable. ? WALE GARCIA MD S BUFFER * Anish Oseguera PharmD - 02/08/2017 12:26 PM CST Vancomycin Pharmacy to Dose Day #5 Ordering Provider: Yoan Indication: (L) foot cellulitis Other abx: Clindamycin WBC: 10.0 (stable) SCR: 1.09 (slightly increased) CRCL: 61 ml/min TMAX: afeb CULTURES: Blood x 2 (02/04): NGTD; MRSA nasal screening pending Current vanco regimen: HT/WT: 5'6 , 87.1 kg Dose/Schedule: 87.1kg * 15 mg/kg = ~1250 mg IV Q 12H Goal Trough: 15-20 mcg/mL>>10-15 mcg/mL as of 02/07 A/P: This is a 46 YOF presenting to [facility] with left foot plantar surface drainage and discharge of second metatarsal head per hospitalist note. Vancomycin/clindamycin day 4 for what was originally thought to be osteomyelitis; however, MRI resulting today shows no convincing evidence of osteo. ID consult pending, though appears may not yet have been notified. Cultures remain negative at this time. Avanco trough resulted 02/06 at 18.3, level would have been therapeutic for higher trough goal, but now with adjusting to 10-15 mcg/mL can dose more conservatively. Also, noted bump in SCr today. As such, dosing interval was changed from q12h to q24h. No repeat level ordered as planning to discharge on oral antibiotics. Will continue to monitor as consulted, thank you. S BUFFER * Wale Gracia MD - 02/07/2017 7:38 PM CST Patient seen and consult dictated. Thank you. 1. Left diabetic foot infection with possible early superficial soft tissue abscess. MRI was negative for osteomyelitis. Currently on vancomycin monotherapy. Continue current mode of therapy and upondischarge may transition to doxycycline with either levofloxacin or Ceftin for 10 days. May consider vascular evaluation for possible incision and drainage of superficial abscess. 2. Type 2 diabetes blood sugars poorly controlled with hemoglobin A1c of 9 advised on good glycemiccontrol. 3. Hypertension blood pressures are stable. S BUFFER * Fatou Jerez NP - 02/07/2017 4:20 PM CST Hospitalist Progress Note Assessment and Plan : Active Problems: Osteomyelitis SNOMED CT(R): OSTEOMYELITIS 1. Left foot soft skin tissue infection Afebrile, no leukocytosis 9K Lactic acid level trended down to 0.6 from 2.0 Left plantar surface on the pad of the great toescant serosanguinous drainage noted with some erythema and tenderness to perimeter , along with blackened ulcer on the top of the fourth toe Stopped Clindamycin today, she had received 4 doses On vancomycin dosed by pharmacy changed to 24 hour dosing due to elevated creatinine Daily dressing change keep area clean MRSA screening pending Dr Hernandez saw patient today pending note MRI of today indicates no osteomyelitis 2. Diabetes mellitus On insulin at home 70/30 60 units in am , 50 unit in pm Received humalog 25 units over the past 24 hours POC 125 Hg a1c 9.5 encouraged better carb control Hx of left 3rd toe amp, in 2014 and left 2nd toe amputation 2016 3. Elevated creatinine 1.3 up from 0.9 will monitor with bmp in the am Secondary to antibiotic therapy Antibiotic De escalation started today 4. Hypomagnesemia Consistently low at 1.7 this hospital stay IV replacement 1 g today Will recheck level in the AM 5. Loose stools three so far today Suspect related to clindamycin Will check for cdiff if become liquid 6. Hypertension Controlled 126/84 Continue hctz, KELLIE-I 7. Hyperlipidemia Continue atorvastatin Monitor lipid panel and liver enzymes as outpatient DVT/GI PPx: lovenox/pepcid Diet/IVF: carb controlled 90g meal /no IVF except with antibiotics & mag replacement Disposition: anticipate one more midnight and possibly home tomorrow, hospital stay will depend on ID consult, and vascular input plan on discharge to home. The above plan of care was discussed with the patient in detail. An opportunity was provided for the patient to ask questions regarding the hospital stay and plan of care. All questions were answered. The patient understands and agrees. The patient was informed to ask the RN to contact me if any further questions or concerns. Spoke with Mary CARRERA Subjective States appetite good sitting up in bed with father at bedside.Denies fever. Had chills times one last evening. Denies sob, chest pain. Denies nausea, vomiting, constipation. Has had 3 loose stools today not liquid. States she sees Dr Fernández who helps manage her diabetes she states her A1C usually runs at 9. She is working on carb controlled diet she states. She sees Dr Langston magazine repairer monthlyhe trimmed a callus on her left foot about 2 weeks ago and now her foot is swollen red and painful.States she had chronic foot pain for several years tried gabapentin without effect, she is currently on no pain medications outpatient. Medications ??? atorvastatin 20 mg Oral Nightly at bedtime ??? enoxaparin 40 mg Subcutaneous Q24H ??? famotidine 20 mg Intravenous 2 times per day Or ??? famotidine 20 mg Oral 2 times per day ??? hydrochlorothiazide 25 mg Oral nightly ??? insulin aspart protamine-insulin aspart 50 Units Subcutaneous Daily before supper ??? insulin aspart protamine-insulin aspart 60 Units Subcutaneous QAM AC ??? insulin lispro 0-14 Units Subcutaneous TID AC And ??? insulin lispro 0-7 Units Subcutaneous Nightly at bedtime ??? lisinopril 40 mg Oral nightly ??? magnesium sulfate 1 g Intravenous Once ??? metoprolol tartrate 100 mg Oral nightly ??? [START ON 02/08/2017] vancomycin 1,250 mg Intravenous Q24H acetaminophen, ondansetron Review of Systems Constitutional: Positive for chills (occasional at night ). Negative for activity change, appetite change and fever. 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 Cardiovascular: Negative for chest pain and leg swelling. Gastrointestinal: Positive for diarrhea (3 stools loose not liquid ). Negative for abdominal pain, constipation, nausea and vomiting. Endocrine: Hx of uncontrolled diabetes with prior toe amputations 2nd and 3rd toe of left foot Genitourinary: Negative for difficulty urinating. Musculoskeletal: Positive for joint swelling (bilateral great toe pain arthritis ). Skin: Positive for wound (open area to left plantar surface and anterior side 4th toe of left foot ). Negative for color change, pallor and rash. Allergic/Immunologic: Negative for environmental allergies, food allergies and immunocompromised state. Neurological: Negative for dizziness, syncope, weakness and headaches. Charot Lani tooth disease hx. Psychiatric/Behavioral: Negative for confusion. Objective Filed Vitals: 02/05/17 2005 02/06/17 0612 02/06/17 1528 02/07/17 0005 BP: 145/76 126/85 140/72 126/84 Pulse: 80 69 81 98 Resp: Temp: 97.6 ??F (36.4 ??C) 97.6 ??F (36.4 ??C) 98.3 ??F (36.8 ??C) 98.1 ??F (36.7 ??C) TempSrc: Oral Oral Oral Oral SpO2: 99% 95% 100% 93% Weight: Height: Intake/Output last 3 shifts: I/O last 3 completed shifts: In: 960 [P.O.:960] Out: 600 [Urine:600] Physical Exam Constitutional: She is oriented to person, place, and time. She appears well- developed and well-nourished. Obese HENT: Head: Normocephalic and atraumatic. Right Ear: External ear normal. Left Ear: External ear normal. Nose: Nose normal. Mouth/Throat: Oropharynx is clear and moist. Eyes: Conjunctivae and EOM are normal. Pupils are equal, round, and reactive to light. Neck: Normal range of motion. Neck supple. Cardiovascular: Normal rate, regular rhythm, normal heart sounds and intact distal pulses. Cool lower extremities but palpable pulses +1 Pulmonary/Chest: Effort normal and breath sounds normal. Abdominal: Soft. Bowel sounds are normal. Musculoskeletal: Normal range of motion. She exhibits edema (left foot edema to anterior portion offoot +1 pitting ). Neurological: She is alert and oriented to person, place, and time. She has normal reflexes. Skin: Skin is warm and dry. There is erythema (perimeter of wound, serosanguinous drainage noted, tenderness , approximately size of a dime with very dry skin around perimeter ). Right forearm iv access no s/s infection Psychiatric: She has a normal mood and affect. Her behavior is normal. Judgment and thought contentnormal. Vitals reviewed. Diagnostic Data Recent Results (from the past 24 hour(s)) POCT glucose Collection Time: 02/06/17 6:17 PM Result Value Ref Range GLUCOSE POC 287 (H) 70 - 99 mg/dL POCT glucose Collection Time: 02/06/17 11:10 PM Result Value Ref Range GLUCOSE POC 317 (H) 70 - 99 mg/dL BASIC METABOLIC PANEL Collection Time: 02/07/17 4:34 AM Result Value Ref Range GLUCOSE 230 (H) 70 - 99 MG/DL BUN 19 (H) 7 - 18 MG/DL CREATININE 1.03 (H) 0.55 - 1.02 MG/DL SODIUM 136 136 - 145 MMOL/L POTASSIUM 4.2 3.5 - 5.1 MMOL/L CHLORIDE 104 100 - 108 MMOL/L CO2 24.3 21 - 32 MMOL/L CALCIUM 8.7 8.5 - 10.1 MG/DL ANION GAP 11.9 8 - 20 MMOL/L BUN CREATININE RATIO 18.4 6 - 26 eGFR Non-Afr. Amer. >60 >60 ML/MIN/1.73 M2 eGFR Afr. Amer. >60 >60 ML/MIN/1.73 M2 CBC W/DIFF AUTOMATED Collection Time: 02/07/17 4:34 AM Result Value Ref Range WBC 9.0 4.8 - 10.8 x10'3/uL RBC 3.71 (L) 4.20 - 5.40 x10'6/uL HGB 11.1 (L) 12.0 - 16.0 G/DL HCT 33.3 (L) 38.0 - 48.0 % MCV 89.8 81.0 - 99.0 FL MCH 29.9 27.0 - 31.0 PG MCHC 33.3 32.0 - 36.0 G/DL RDW 12.6 11.5 - 14.5 % PLT 281 130 - 400 x10'3/uL MPV 11.3 9.3 - 12.2 FL NEUTROPHILS 62.1 43.0 - 65.0 % LYMPHOCYTES 28.3 20.0 - 46.0 % MONOCYTES 7.3 5.0 - 12.0 % EOSINOPHILS 1.2 1.0 - 3.0 % BASOPHILS 0.7 0.0 - 1.0 % IMMATURE GRANS 0.4 0.0 - 1.0 % MAGNESIUM Collection Time: 02/07/17 4:34 AM Result Value Ref Range MAGNESIUM 1.7 (L) 1.8 - 2.4 MG/DL POCT glucose Collection Time: 02/07/17 6:33 AM Result Value Ref Range GLUCOSE POC 218 (H) 70 - 99 mg/dL POCT glucose Collection Time: 02/07/17 12:32 PM Result Value Ref Range GLUCOSE POC 195 (H) 70 - 99 mg/dL Xr Foot Lt 3v Result Date: 02/04/2017 Examination: Left foot 3 views Exam date/time: 02/04/2017 11:32 AM Reason For Exam: Pain, wound 1stmetatarsal osteomyelitis. Comparison: MRI left foot 12/23/2015; left x-ray 11/24/2015 Technique: AP, oblique and lateral views of the left foot were obtained. Findings: Changes of second toe amputationnew from the prior study. Stable amputation third toe at the base of the proximal phalanx. Overlying stump nonspecific soft tissue thickening and swelling. No obvious emphysema. There is cortical erosion and lucency at the distal margin second metatarsal head which can be seen with osteomyelitis. Stable nonspecific midfoot arthritis and sclerosis. Large plantar calcaneal spur present. =====IMPRESSION:===== 1. 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 2. Focal cortical erosion and lucency at the head of the second metatarsal which can be seen with osteomyelitis. Confirmation with MRI can be obtained as clinically directed. Mri Foot Lt Wo Con Result Date: 02/07/2017 EXAMINATION: MRI LEFT FOOT WITHOUT CONTRAST EXAM DATE/TIME: 02/07/2017 11:55 PM REASON FOR EXAM: Pain and swelling of the foot. Suspected osteomyelitis. COMPARISON: 12/23/2015 TECHNIQUE: Mutiplanar, multisequence MRI of the left foot was obtained without the use of an IV contras t agent. FINDINGS: Patient is status post amputation of the second digit at the metatarsal phalangeal joint. Diffuse soft tissue swelling. Open wound at the plantar surface of the first digit near the metatarsal phalangeal joint. No convincing evidence of underlying osteomyelitis. Lisfranc ligamentintact. Patchy increased T2 signal in the medial and intermediate cuneiforms and throughout the partially evaluated mid foot, concerning for neuropathic disease. Moderate intrinsic muscular atrophy of the foot. =====IMPRESSION:===== No convincing evidence of osteomyelitis. Neuropathic changes, second digit partial amputation, intrinsic muscular atrophy of the foot. U JEREZ NP 02/07/2017 4:20 PM Cosigned by Sabrina Soria MD at 02/07/2017 8:14 PM BRASS BUFFER S BUFFER S BUFFER Associated attestation - Sabrina Soria MD - 02/07/2017 8:14 PM BRASS BUFFER I, SABRINA SORIA MD, performed an examination of the patient and discussed the management with the Mid-Level Provider. I reviewed the P's progress note and agree with the findings and plan of care, except as I have documented. Patient is seen and examined independently She continues to be asymptomatic No fever Vitals: 02/07/17 0005 BP: 126/84 Pulse: 98 Resp: 20 Temp: 98.1 ??F (36.7 ??C) SpO2: 93% ?? Physical Exam: -GENERAL: No acute distress, breathing comfortably on room air. -EYES: Extraocular movements intact -ENT: Neck supple, Septum is midline. -LUNG: Clear to auscultation bilaterally, No wheezes, No crackles -CVS: Regular rate rhythm, S1 and S2 normal, No murmurs, -ABDOMEN: Soft, nondistended, Nontender, Bowel sounds observed -EXT: no lower Ext edema. Left foot with 2 toes amputation. The base of the great toe slightly red minor drainage -NEURO: Alert, awake, oriented x3, No gross neuro deficit -SKIN: Skin color, texture, turgor normal. No rashes or lesions White blood cells 9.0 Hemoglobin 11.1 Potassium 4.2 Creatinine 1.03 MRI ?? =====IMPRESSION:===== ??No convincing evidence of osteomyelitis. ?? Neuropathic changes, second digit partial amputation, intrinsic muscular atrophy of the foot. #1 soft tissue infection on vancomycin We will discharge tomorrow on doxycycline and Ceftin Vascular surgery evaluated the patient #2 diabetes Patient knows by now that it is an ongoing problem that she needs to follow-up with her primary care physician I did increase her insulin slightly in the morning to cover for an increase of her glucose at evening time Expected discharge tomorrow * Salma Martinez, PharmD - 02/07/2017 4:06 PM CST Vancomycin Pharmacy to Dose Day #4 Ordering Provider: Yoan Indication: (L) foot cellulitis Other abx: Clindamycin WBC: 9 SCR: 1.03 (slightly increased) CRCL: 65 ml/min TMAX: 98.4 CULTURES: Blood x 2 (02/04): NGTD; MRSA nasal screening pending Current vanco regimen: HT/WT: 5'6 , 87.1 kg Dose/Schedule: 87.1kg * 15 mg/kg = ~1250 mg IV Q 12H Goal Trough: 15-20 mcg/mL>>10-15 mcg/mL as of 02/07 A/P: This is a 46 YOF presenting to [facility] with left foot plantar surface drainage and discharge of second metatarsal head per hospitalist note. Vancomycin/clindamycin day 4 for what was originally thought to be osteomyelitis; however, MRI resulting today shows no convincing evidence of osteo. ID consult pending, though appears may not yet have been notified. Cultures remain negative at this time. Avanco trough resulted 02/06 at 18.3, level would have been therapeutic for higher trough goal, but now with adjusting to 10-15 mcg/mL can dose more conservatively. Also, noted bump in SCr today. As such, will change dosing interval from q12h to q24h at this time and only order a f/u level if therapy to continue beyond a couple more days. Could possibly consider de-escalating therapy at this pointalso, and sent [facility] to Dr. Savanna Serra with antibiotic recs if concern for avoiding nephrotoxic agents while still wanting broader coverage with IV therapy. Will continue to monitor as consulted, thank you. S BUFFER * Sabrina Soria MD - 02/06/2017 6:09 PM CST Hospitalist Daily Progress Note Subjective Patient has no new acute complaints she denied any fever Objective Filed Vitals: 02/05/17 1500 02/05/17 2005 02/06/17 0612 02/06/17 1528 BP: 142/60 145/76 126/85 140/72 Pulse: 85 80 69 81 Resp: Temp: 98.4 ??F (36.9 ??C) 97.6 ??F (36.4 ??C) 97.6 ??F (36.4 ??C) 98.3 ??F (36.8 ??C) TempSrc: Oral Oral Oral Oral SpO2: 96% 99% 95% 100% Weight: Height: Physical Exam: -GENERAL: No acute distress, breathing comfortably on room air. -EYES: Extraocular movements intact -ENT: Neck supple, Septum is midline. -LUNG: Clear to auscultation bilaterally, No wheezes, No crackles -CVS: Regular rate rhythm, S1 and S2 normal, No murmurs, -ABDOMEN: Soft, nondistended, Nontender, Bowel sounds observed -EXT: no lower Ext edema. Left foot with 2 toes amputation. The base of the great toe slightly red minor drainage -NEURO: Alert, awake, oriented x3, No gross neuro deficit -SKIN: Skin color, texture, turgor normal. No rashes or lesions Intake/Output 24H Total: Intake/Output Summary (Last 24 hours) at 02/06/17 1809 Last data filed at 02/06/17 1528 Gross per 24 hour Intake 720 ml Output 600 ml Net 120 ml Medication ??? atorvastatin 20 mg Oral Nightly at bedtime ??? clindamycin 600 mg Intravenous Q8H ??? enoxaparin 40 mg Subcutaneous Q24H ??? famotidine 20 mg Intravenous 2 times per day Or ??? famotidine 20 mg Oral 2 times per day ??? hydrochlorothiazide 25 mg Oral nightly ??? insulin aspart protamine-insulin aspart 50 Units Subcutaneous BID AC ??? insulin lispro 0-14 Units Subcutaneous TID AC And ??? insulin lispro 0-7 Units Subcutaneous Nightly at bedtime ??? lisinopril 40 mg Oral nightly ??? metoprolol tartrate 100 mg Oral nightly ??? vancomycin 1,250 mg Intravenous Q12H acetaminophen, ondansetron Labs: Recent Labs Lab 02/04/17 1134 02/05/177 02/06/17 0112 WBC 9.7 8.0 7.1 RBC 4.19* 3.55* 3.56* HGB 12.7 10.7* 10.8* HCT 36.7* 31.8* 31.9* MCV 87.6 89.6 89.6 MCH 30.3 30.1 30.3 MCHC 34.6 33.6 33.9 PLT 359 258 240 RDW 12.6 12.3 12.4 MPV 11.7 11.2 10.8 PERNEU 66.7* 63.9 51.8 PERLYM 27.9 27.7 38.4 PERMON 3.5* 5.9 7.4 Recent Labs Lab 02/04/17 1134 02/05/17 0447 02/06/17 0112 NA 134* 138 139 K 4.4 4.0 4.3 CL 99* 103 104 CO2 27.7 28.2 27.6 AGAP 11.7 10.8 11.7 BUN 15 16 16 CR 1.22* 0.94 0.90 BUNCREATININ 12.3 17.1 17.7 GFRNON 53* >60 >60 GFR >60 >60 >60 GLU 236* 153* 226* CA 9.6 8.7 8.9 TP 9.8* 7.5 -- ALB 3.6 2.6* -- TBIL 0.3 0.2 -- ALKP 166* 167* -- AST 22 82* -- ALT 28 62* -- Recent Labs Lab 02/04/17 1134 02/04/17 1312 02/04/17 1524 LACTICACID 2.0 1.9 0.6 No results for input(s): PH, PCO2, PO2, [id number], BICARBWB, BASEDEFICIT, BASEEXCESS in the [id number] hours. No results found for this or any previous visit. X-Ray Xr Foot Lt 3v =====IMPRESSION:===== 1. 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 2. Focal cortical erosion and lucency at the head of the second metatarsal which can be seen with osteomyelitis. Confirmation with MRI can be obtained as clinically directed. Assessment/Plan: #1 left foot plantar surface drainage X-ray suggestive for osteomyelitis MRI is ordered Elevated ESR 88 and CRP 2.9 IV antibiotics started Clindamycin and ceftriaxone ID and vascular surgery consultation is requested. RN instructed to call Dr. Hernandez office #2 diabetes Continue home medication Sliding scale insulin She reported a good blood sugar in the morning and uncontrolled in the evenings I will increase her morning dose of insulin 70/30 to 60 units I explained in detail how important to keep her blood sugar controlled Given her age strict diabetic control is favorable she needs her hemoglobin A1c below 7.0 #3 hyperlipidemia Statin #4 hypertension Continue current management #5 chronic kidney disease Likely related to her diabetes Avoid nephrotoxic medications DVT prophylaxis Lovenox CODE STATUS full code Length of stay depends on ID and vascular approach to this case SABRINA SORIA MD 02/06/2017 6:09 PM S BUFFER * Abiodun Zuniga, RudiD, [facility] - 02/06/2017 2:08 PM CST Vancomycin Pharmacy to Dose Day #3 Ordering Provider: Yoan Indication: Osteomyelitis Goal Trough: 15-20 mcg/mL HT/WT: 5'6 , 87.1 kg Dose/Schedule: 87.1kg * 15 mg/kg = ~1250 mg Q 12 H WBC: 7.1 SCR: 0.90 CRCL: 73.9ml/min TMAX: 98.4 A/P: Vancomycin/clindamycin day 3 for osteo. This 46 YOF presenting to [facility] with left foot plantar surface drainage and discharge consistent with osteomyelitis of second metatarsal head per hospitalist note. ID and podiatry consulted. Cultures remain negative at this time. A vanco trough resulted last night at 18.3, level is therapeutic. Will continue vanco at 1.25g/12h unchanged. The next trough is set to be drawn before the 1400 dose02/08 to check for accumulation. S BUFFER * Sabrina Soria MD - 02/05/2017 7:52 PM CST Hospitalist Daily Progress Note Subjective Patient has no new acute complaints she denied any fever Objective Filed Vitals: 02/04/17 1715 02/04/17201602/05/17 0446 02/05/17 1500 BP: 134/75 130/58 122/51 142/60 Pulse: 74 88 66 85 Resp: Temp: 98.3 ??F (36.8 ??C) 98.7 ??F (37.1 ??C) 98 ??F (36.7 ??C) 98.4 ??F (36.9 ??C) TempSrc: Oral Oral Oral Oral SpO2: 99% 95% 98% 96% Weight: Height: Physical Exam: -GENERAL: No acute distress, breathing comfortably on room air. -EYES: Extraocular movements intact -ENT: Neck supple, Septum is midline. -LUNG: Clear to auscultation bilaterally, No wheezes, No crackles -CVS: Regular rate rhythm, S1 and S2 normal, No murmurs, -ABDOMEN: Soft, nondistended, Nontender, Bowel sounds observed -EXT: no lower Ext edema. Left foot with 2 toes amputation. The base of the great toe slightly red minor drainage -NEURO: Alert, awake, oriented x3, No gross neuro deficit -SKIN: Skin color, texture, turgor normal. No rashes or lesions Intake/Output 24H Total: Intake/Output Summary (Last 24 hours) at 02/05/17 195 Last data filed at 02/05/17 1715 Gross per 24 hour Intake 616.66 ml Output 600 ml Net 16.66 ml Medication ??? atorvastatin 20 mg Oral Nightly at bedtime ??? clindamycin 600 mg Intravenous Q8H ??? enoxaparin 40 mg Subcutaneous Q24H ??? famotidine 20 mg Intravenous 2 times per day Or ??? famotidine 20 mg Oral 2 times per day ??? hydrochlorothiazide 25 mg Oral nightly ??? insulin aspart protamine-insulin aspart 50 Units Subcutaneous BID AC ??? insulin lispro 0-14 Units Subcutaneous TID AC And ??? insulin lispro 0-7 Units Subcutaneous Nightly at bedtime ??? lisinopril 40 mg Oral nightly ??? metoprolol tartrate 100 mg Oral nightly ??? vancomycin 1,250 mg Intravenous Q12H acetaminophen, ondansetron Labs: Recent Labs Lab 02/04/17 1134 02/05/17 0447 WBC 9.7 8.0 RBC 4.19* 3.55* HGB 12.7 10.7* HCT 36.7* 31.8* MCV 87.6 89.6 MCH 30.3 30.1 MCHC 34.6 33.6 PLT 359 258 RDW 12.6 12.3 MPV 11.7 11.2 PERNEU 66.7* 63.9 PERLYM 27.9 27.7 PERMON 3.5* 5.9 Recent Labs Lab 02/04/17 1134 02/05/17 0447 NA 134* 138 K 4.4 4.0 CL 99* 103 CO2 27.7 28.2 AGAP 11.7 10.8 BUN 15 16 CR 1.22* 0.94 BUNCREATININ 12.3 17.1 GFRNON 53* >60 GFR >60 >60 GLU 236* 153* CA 9.6 8.7 TP 9.8* 7.5 ALB 3.6 2.6* TBIL 0.3 0.2 ALKP 166* 167* AST 22 82* ALT 28 62* Recent Labs Lab 02/04/17 1134 02/04/17 1312 02/04/17 1524 LACTICACID 2.0 1.9 0.6 No results for input(s): PH, PCO2, PO2, [id number], BICARBWB, BASEDEFICIT, BASEEXCESS in the [id number] hours. No results found for this or any previous visit. X-Ray Xr Foot Lt 3v =====IMPRESSION:===== 1. 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 2. Focal cortical erosion and lucency at the head of the second metatarsal which can be seen with osteomyelitis. Confirmation with MRI can be obtained as clinically directed. Assessment/Plan: #1 left foot plantar surface drainage X-ray suggestive for osteomyelitis Elevated ESR 88 and CRP 2.9 IV antibiotics started Clindamycin and ceftriaxone ID and vascular surgery consultation is requested. #2 diabetes Continue home medication Sliding scale insulin We will request hemoglobin A1c #3 hyperlipidemia Statin #4 hypertension Continue current management #5 chronic kidney disease Likely related to her diabetes Avoid nephrotoxic medications DVT prophylaxis Lovenox CODE STATUS full code Length of stay depends on ID and vascular approach to this case SABRINA SORIA MD 02/05/2017 7:52 PM S BUFFER * Vannessa Crockett, [facility] - 02/05/2017 1:05 PM CST Creation Time: 02/04/2017 3:03 PM Vancomycin Pharmacy to Dose Day #2 Ordering Provider: Yoan Indication: Osteomyelitis Goal Trough: 15-20 mcg/mL HT/WT: 5'6 , 87.1 kg Dose/Schedule: 87.1kg * 15 mg/kg = ~1250 mg Q 12 H WBC: 8.0 SCR: 0.94 CRCL: 70 TMAX: afebrile CULTURES PENDING: - BC x 2 (02/04): NGTD OTHER ANTIBIOTICS: Clindamycin A/P: 46 YOF presenting to [facility] with left foot plantar surface drainage and discharge consistent with osteomyelitis of second metatarsal head per hospitalist note. ID and podiatry consulted. 1750 mg loadingdose was administered in the ED. Based on indication, as well as patient's age, weight, and renal function, will order vancomycin at 1250 mg Q 12 H starting 12 hours after the loading dose. Will assess trough before the fourth dose of vancomycin (02/06 @ 0100). Pharmacy will continue to follow. Today, WBC decreased, renal function stable, afebrile continues, blood cultures no growth so far. Vancomycin therapy continues as ordered without adverse effects or issues reported. Xray of the left foot indicates osteomyelitis, not yet confirmed by MRI. Patient has history of osteomyelitis with prior partial amputation of this foot. Pharmacy will follow up with levels overnight. Thank you. S BUFFER * Adenike Dawson RN - 02/05/2017 8:20 AM CST 02/05 0820 AL NO DC NEEDS PER RN DC ASSESSMENT RESIDES AT HOME WITH SPOUSE WILL REASSESS DC NEEDS UPON REQUEST S BUFFER * Pietro Blum PharmD - 02/04/2017 3:03 PM CST Vancomycin Pharmacy to Dose Day #1 Ordering Provider: Yoan Indication: Osteomyelitis Goal Trough: 15-20 mcg/mL HT/WT: 5'6 , 87.1 kg Dose/Schedule: 87.1kg * 15 mg/kg = ~1250 mg Q 12 H WBC: 9.7 SCR: 1.22 CRCL: 65 mL/min (AdjBW) TMAX: afebrile CULTURES PENDING: - BC x 2 (02/04): NGTD OTHER ANTIBIOTICS: Clindamycin A/P: 46 YOF presenting to [facility] with left foot plantar surface drainage and discharge consistent with osteomyelitis of second metatarsal head per hospitalist note. ID and podiatry consulted. 1750 mg loadingdose was administered in the ED. Based on indication, as well as patient's age, weight, and renal function, will order vancomycin at 1250 mg Q 12 H starting 12 hours after the loading dose. Will assess trough before the fourth dose of vancomycin (02/06 @ 0100). Pharmacy will continue to follow. Thank you for the consult. S BUFFER documented in this encounter H&P Notes * Eduardo New MD - 02/04/2017 1:31 PM CST ATTENDING: Jurgen Posadas DNP PRIMARY CARE PROVIDER: JARRED FERNÁNDEZ CC: Foul-smelling discharge from left foot plantar surface HPI: Lena Youngblood is a 46-year-old female with a history of diabetes mellitus type 2, hypertension, hyperlipidemia and charcot diabetic foot. Patient is presenting with the foul-smelling drainage and discharge from the left plantar surface of the foot at the site of first and second metatarsalbones. Patient went to see her magazine repairer 3 weeks ago who scraped the callus from the plantar surface. Patient started having mild swelling and discomfort in the foot 3 days ago. she started noticingsome blood in the drainage from the plantar surface along with the foul-smelling discharge. She is denying having any pain in the great toe or the foot. She is denying having any fever or chills. No c hest pain or shortness of breath. No headache , dizziness, lightheadedness. No nausea, vomiting, abdominal pain diarrhea constipation. Lately, she has been feeling dyspnea on exertion. Patient mentioned that she has a history of left second toe amputation in 2015 and left third toe amputation in 2016 due to osteo-myelitis. She is complaining of headaches on and off. Due to these symptoms, patientcame to the emergency room and x-ray of the foot was done which shows findings are consistent with osteomyelitis in the second metatarsal head. Patient is being admitted for further evaluation. 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 Past Medical History: Diagnosis Date ??? Arthritis ??? Charcot foot due to diabetes mellitus LEFT FOOT ??? Diabetes mellitus ??? Diabetic neuropathy ??? Hypertension ??? Renal disorder Past Surgical History: Procedure Laterality Date ??? 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 RETINAL DETACHMENT SURGERY Right Social History Social History ??? Marital status: Spouse name: N/A ??? Number of children: N/A ??? Years of education: N/A Occupational History ??? Not on file. Social History Main Topics ??? Smoking status: Never Smoker ??? Smokeless tobacco: Never Used ??? Alcohol use No ??? Drug use: No ??? Sexual activity: Not on file Other Topics Concern ??? Not on file Social History Narrative ??? No narrative on file No family history on file. Prior to Admission medications Medication Sig Start Date End Date Taking? Authorizing Provider [facility] MIX 75/25 (75-25) 100 UNIT/ML Suspension Inject 50 Units into the skin 2 (two) times daily before meals. 12/29/16 Yes Doc Abstract hydrochlorothiazide 25 MG tablet Take 25 mg by mouth nightly. Yes Doc Abstract lisinopril 40 MG tablet Take 40 mg by mouth nightly. 11/03/16 Yes Doc Abstract metoprolol tartrate 100 MG tablet Take 100 mg by mouth nightly. 12/28/16 Yes Doc Abstract simvastatin 40 MG tablet Take 40 mg by mouth nightly at bedtime. 11/03/16 Yes Doc Abstract vitamin B-12 100 MCG tablet Take 50 mcg by mouth daily. Yes Doc Abstract Allergies Allergen Reactions ??? Amoxicillin Rash ??? Penicillins Rash REVIEW OF SYSTEMS: Patient is denying having any headache, dizziness or lightheadedness. No sore throat or cough. All of the 14 point systems are reviewed and negative other than mentioned in the history of present illness. PHYSICAL EXAM: Vitals: 02/04/17 1315 BP: (!) 158/98 Pulse: 76 Resp: 18 Temp: SpO2: 99% General appearance: well developed, well nourished, no acute distress Head: normocephalic, atraumatic, MMM Eyes: Patient is blind in the right eye and poor vision in the left eye , no conjunctival erythema,no icterus Neck: no elevated JVD, trachea midline Lungs: clear to auscultation bilaterally, no respiratory distress, good air movement Cardiovascular: regular rate and rhythm, no murmur, pulses palpable and symmetric Abdomen: soft, normal bowel sounds, non-tender, non-distended, no masses Extremities: no cyanosis, clubbing, or edema. Patient has a callus with the opening in the plantar surface of the left foot at the site of first and second metatarsal heads. There is mild purulent discharge and tinge of blood at the site. Skin: warm, dry, no rash Neurological: normal speech, no cranial nerve deficits, normal strength, sensation intact Psychiatric: normal mood and affect, judgement and insight intact Pulses: 2+ and symmetric Capillary Refill: <2 seconds Skin: Skin color, texture, turgor normal. No rashes or lesions. LABS: SODIUM Date Value Ref Range Status 02/04/2017 134 (L) 136 - 145 MMOL/L Final POTASSIUM Date Value Ref Range Status 02/04/2017 4.4 3.5 - 5.1 MMOL/L Final CHLORIDE Date Value Ref Range Status 02/04/2017 99 (L) 100 - 108 MMOL/L Final CO2 Date Value Ref Range Status 02/04/2017 27.7 21 - 32 MMOL/L Final BUN Date Value Ref Range Status 02/04/2017 15 7 - 18 MG/DL Final CREATININE Date Value Ref Range Status 02/04/2017 1.22 (H) 0.55 - 1.02 MG/DL Final CALCIUM Date Value Ref Range Status 02/04/2017 9.6 8.5 - 10.1 MG/DL Final GLUCOSE Date Value Ref Range Status 02/04/2017 236 (H) 70 - 99 MG/DL Final ANION GAP Date Value Ref Range Status 02/04/2017 11.7 8 - 20 MMOL/L Final TOTAL PROTEIN Date Value Ref Range Status 02/04/2017 9.8 (H) 6.4 - 8.2 G/DL Final ALBUMIN Date Value Ref Range Status 02/04/2017 3.6 3.4 - 5.0 G/DL Final AST Date Value Ref Range Status 02/04/2017 22 15 - 37 U/L Final ALT Date Value Ref Range Status 02/04/2017 28 14 - 55 U/L Final WBC Date Value Ref Range Status 02/04/2017 9.7 4.8 - 10.8 x10'3/uL Final HGB Date Value Ref Range Status 02/04/2017 12.7 12.0 - 16.0 G/DL Final PLT Date Value Ref Range Status 02/04/2017 359 130 - 400 x10'3/uL Final INR (no units) Date Value 02/02/2016 1.0 TROPONIN I (ng/mL) Date Value 02/02/2016 <0.30 01/17/2016 <0.30 01/17/2016 <0.30 IMAGING: Xr Foot Lt 3v Result Date: 02/04/2017 Examination: Left foot 3 views Exam date/time: 02/04/2017 11:32 AM Reason For Exam: Pain, wound 1st metatarsal osteomyelitis. Comparison: MRI left foot 12/23/2015; left x-ray 11/24/2015 Technique: AP,oblique and lateral views of the left foot were obtained. Findings: Changes of second toe amputation new from the prior study. Stable amputation third toe at the base of the proximal phalanx. Overlying stump nonspecific soft tissue thickening and swelling. No obvious emphysema. There is cortical erosion and lucency at the distal margin second metatarsal head which can be seen with osteomyelitis. Stable nonspecific midfoot arthritis and sclerosis. Large plantar calcaneal spur present. =====IMPRESSION:===== 1. 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 2. Focal cortical erosion and lucency at the head of the second metatarsal which can be seen with osteomyelitis. Confirmation with MRI can be obtained as clinically directed. SSMENT AND PLAN: * No active hospital problems. * 1. Left foot plantar surface drainage and discharge consistent with osteomyelitis of second metatarsal head. We will consult infectious disease and magazine repairer. We will start her on IV antibiotics vancomycin and clindamycin. Patient is allergic to penicillin. Patient may need prolonged course of IV a ntibiotics versus amputation of the second metatarsal head of the left foot. 2. Diabetes mellitus type 2. We will continue her home medication. Monitor blood sugar closely. 3. Hypertension blood pressure has been stable we will continue current blood pressure medications. 4. Hyperlipidemia 5. Charcot foot . Continue with pain medications as needed. 6. Chronic kidney disease stage III possibly secondary diabetic nephropathy. Continue monitor kidney function I&O's. 7. Hyponatremia most likely hypovolemic hyponatremia. We will monitor sodium level repeat BMP in the morning. Resume on her home medications. Provide DVT prophylaxis. Continue to follow closely in the hospital. EDUARDO NEW MD 02/04/2017 S BUFFER documented in this encounter Consult Notes * Hubert Hernandez MD - 02/08/2017 9:23 AM CSTAssociated Order(s): IP CONSULT TO VASCULAR SURGERY Images from the original note were not included. Consult History Lena Youngblood is a 46-year-old female who presents with left foot pain HPI Comments: This is a 46-year-old female who presents with a left diabetic foot ulceration. The patient presented to the hospital following a period of increased pain and purulent discharge from the ulcer. She has a history significant for toe amputation. She denies claudication symptoms. She denies fevers and chills. MRI of the foot revealed no osteomyelitis of the first metatarsal head at thesite of the ulcer. She states her discomfort has improved since her hospitalization. Past Medical History: Diagnosis Date ??? Arthritis ??? Charcot foot due to diabetes mellitus LEFT FOOT ??? Diabetes mellitus ??? Diabetic neuropathy ??? Hypertension ??? Renal disorder Past Surgical History: Procedure Laterality Date ??? 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 EYE SURGERY ??? FRACTURE SURGERY ??? HYSTERECTOMY ??? RETINAL DETACHMENT SURGERY Right Social History Substance Use Topics ??? Smoking status: Never Smoker ??? Smokeless tobacco: Never Used ??? Alcohol use No No family history on file. ??? atorvastatin 20 mg Oral Nightly at bedtime ??? enoxaparin 40 mg Subcutaneous Q24H ??? famotidine 20 mg Intravenous 2 times per day Or ??? famotidine 20 mg Oral 2 times per day ??? hydrochlorothiazide 25 mg Oral nightly ??? insulin aspart protamine-insulin aspart 50 Units Subcutaneous Daily before supper ??? insulin aspart protamine-insulin aspart 60 Units Subcutaneous QAM AC ??? insulin lispro 0-14 Units Subcutaneous TID AC And ??? insulin lispro 0-7 Units Subcutaneous Nightly at bedtime ??? lisinopril 40 mg Oral nightly ??? metoprolol tartrate 100 mg Oral nightly ??? vancomycin 1,250 mg Intravenous Q24H acetaminophen, ondansetron Prior to Admission medications Medication Sig Start Date End Date Taking? Authorizing Provider Acidophilus Lactobacillus Cap Take 1 capsule by mouth 3 (three) times a day for 60 days. 02/08/17 04/09/17 Yes Sabrina Soria MD Doxycycline Hyclate 100 MG Tab EC Take 100 mg by mouth 2 (two) times a day for 10 days. 02/08/17 02/18/17 Yes Sabrina Soria MD HUMALOG MIX 75/25 (75-25) 100 UNIT/ML Suspension Take 55 units in AM and 50 units PM, this should be titrated depending on your blood sugar numbers. 02/08/17 Yes Sabrina Soria MD hydrochlorothiazide 25 MG tablet Take 25 mg by mouth nightly. Yes Doc Abstract levofloxacin 500 MG tablet Take 1.5 tablets (750 mg total) by mouth daily for 10 days. 10 days 02/08/17 02/18/17 Yes Sabrina Soria MD lisinopril 40 MG tablet Take 40 mg by mouth nightly. 11/03/16 Yes Doc Abstract metoprolol tartrate 100 MG tablet Take 100 mg by mouth nightly. 12/28/16 Yes Doc Abstract simvastatin 40 MG tablet Take 40 mg by mouth nightly at bedtime. 11/03/16 Yes Doc Abstract vitamin B-12 100 MCG tablet Take 50 mcg by mouth daily. Yes Doc Abstract Allergies Allergen Reactions ??? Amoxicillin Rash ??? Penicillins Rash Review of Systems Constitutional: Negative. HENT: Negative. Eyes: Negative. Respiratory: Negative. Cardiovascular: Negative. Gastrointestinal: Negative. Endocrine: Negative. Genitourinary: Negative. Musculoskeletal: Positive for joint swelling. Skin: Positive for color change and wound. Allergic/Immunologic: Negative. Neurological: Negative. Hematological: Negative. Psychiatric/Behavioral: Negative. All other systems reviewed and are negative. Physical Exam Filed Vitals: 02/07/17 0005 02/07/17 2143 02/08/17 0013 02/08/17 0500 BP: 126/84 110/62 107/54 116/58 Pulse: 98 83 72 75 Resp: Temp: 98.1 ??F (36.7 ??C) 98.2 ??F (36.8 ??C) 98.7 ??F (37.1 ??C) 98.2 ??F (36.8 ??C) TempSrc: Oral Oral Oral Oral SpO2: 93% 98% 100% 100% Weight: Height: Physical Exam: Physical Exam Constitutional: She is oriented to person, place, and time. She appears well- developed and well-nourished. No distress. HENT: Head: Normocephalic and atraumatic. Eyes: Conjunctivae are normal. No scleral icterus. Neck: Neck supple. No JVD present. No tracheal deviation present. Cardiovascular: Normal rate and regular rhythm. Pulses: Dorsalis pedis pulses are 1+ on the left side. Posterior tibial pulses are 1+ on the left side. Pulmonary/Chest: Effort normal and breath sounds normal. No respiratory distress. Abdominal: Soft. Bowel sounds are normal. She exhibits no distension. There is no tenderness. Musculoskeletal: Normal range of motion. She exhibits tenderness. She exhibits no edema. Neurological: She is alert and oriented to person, place, and time. No cranial nerve deficit. Skin: Skin is warm and dry. She is not diaphoretic. There is erythema. Psychiatric: She has a normal mood and affect. Her behavior is normal. Judgment normal. Recent Labs Lab 02/06/17 0112 02/07/17 0434 02/08/17 0450 WBC 7.1 9.0 10.0 RBC 3.56* 3.71* 3.52* HGB 10.8* 11.1* 10.4* HCT 31.9* 33.3* 31.6* MCV 89.6 89.8 89.8 MCH 30.3 29.9 29.5 MCHC 33.9 33.3 32.9 PLT 240 281 262 RDW 12.4 12.6 12.9 MPV 10.8 11.3 11.2 PERNEU 51.8 62.1 65.7* PERLYM 38.4 28.3 25.8 PERMON 7.4 7.3 6.4 Recent Labs Lab 02/04/17 1134 02/05/17 0447 02/06/17 0112 02/07/17 0434 02/08/17 0450 NA 134* 138 139 136 140 K 4.4 4.0 4.3 4.2 4.1 CL 99* 103 104 104 106 CO2 27.7 28.2 27.6 24.3 27.3 AGAP 11.7 10.8 11.7 11.9 10.8 BUN 15 16 16 19* 18 CR 1.22* 0.94 0.90 1.03* 1.09* BUNCREATININ 12.3 17.1 17.7 18.4 16.5 GFRNON 53* >60 >60 >60 >60 GFR >60 >60 >60 >60 >60 GLU 236* 153* 226* 230* 141* CA 9.6 8.7 8.9 8.7 8.7 TP 9.8* 7.5 -- -- 7.5 ALB 3.6 2.6* -- -- 2.6* TBIL 0.3 0.2 -- -- 0.3 ALKP 166* 167* -- -- 174* AST 22 82* -- -- 47* ALT 28 62* -- -- 80* Imaging: Xr Foot Lt 3v Result Date: 02/04/2017 Examination: Left foot 3 views Exam date/time: 02/04/2017 11:32 AM Reason For Exam: Pain, wound 1stmetatarsal osteomyelitis. Comparison: MRI left foot 12/23/2015; left x-ray 11/24/2015 Technique: AP, oblique and lateral views of the left foot were obtained. Findings: Changes of second toe amputationnew from the prior study. Stable amputation third toe at the base of the proximal phalanx. Overlying stump nonspecific soft tissue thickening and swelling. No obvious emphysema. There is cortical erosion and lucency at the distal margin second metatarsal head which can be seen with osteomyelitis. Stable nonspecific midfoot arthritis and sclerosis. Large plantar calcaneal spur present. =====IMPRESSION:===== 1. 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 2. Focal cortical erosion and lucency at the head of the second metatarsal which can be seen with osteomyelitis. Confirmation with MRI can be obtained as clinically directed. Assessment Principal Problem: Cellulitis SNOMED CT(R): CELLULITIS Active Problems: Osteomyelitis SNOMED CT(R): OSTEOMYELITIS Plan The patient has no osteomyelitis of the toe. The patient has a small subcutaneous abscess which wasdrained at the bedside. Continue local wound care and antibiotics. She may be discharged home. Follow-up in 2 weeks in the office. 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 Patient also with h/o toe amputations and currently a left foot plantar area which was reported as draining. ESR and CRP both elevated. Meds and lab reviewed. Diet education with carbohydrate counting started which she will study until my f/u for further adjustment/discussion. Patientstates he in house glucose values higher than at home (which tend to be higher in the p.m. at home). She attributes this to actually eating more carb here vs at home. I encouraged her to eat an amount of carbohydrate here as she does (or plans to do given my diet instruction) at home. Protein [id number] gm (1.0-1.2 gm/kg adjusted body wt). The high protein foods were reviewed with her and the intake of same encouraged. D: Pes of increased nutrient needs related to wound healing as evidenced by wound as reported. I:[place] bid for wound healing and improvement in visceral protein status. M/E: At f/u 02/09/17.goals of accept one of the supplements sent; 2) 70% average intake. S BUFFER * Wale Garcia MD - 02/07/2017 12:00 AM CST REQUESTING PHYSICIAN: Dr. Vera REASON FOR CONSULTATION: Diabetic foot ulcer. HISTORY OF PRESENT ILLNESS: This is a 46-year-old female with significant past medical history for type 2 diabetes, hypertension, hyperlipidemia, history of Charcot right foot. The patient presents with left foot plantar ulcer going on for several weeks. She was seen by her magazine repairer 3 weeks ago who scraped a callus from the plantar surface. Patient since then has had mild swelling and discomfort which got worse 3 days prior to admission. Subsequently, there was noticed to drain some bloody discharge. Patient was admitted to the hospital. I was requested to see her for further evaluation. MRI of the foot was unremarkable for osteomyelitis or drainable abscess. On me examining the foot, there was significant purulent discharge bloody in nature. The patient previously had had osteomyelitisof the left foot requiring amputation of the 2nd and the 3rd toe. Patient has peripheral neuropathy, type 2 diabetes with poor blood sugar control. 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 PAST SURGICAL HISTORY: Left foot 2nd and 3rd toe amputation, retinal detachment surgery, nephrostomy tube placement to the right kidney and removal. ALLERGIES: SHE IS ALLERGIC TO AMOXICILLIN, DEVELOPS A RASH. FAMILY HISTORY: Noncontributory. SOCIAL HISTORY: Nonsmoker, nondrinker. MEDICATIONS AT HOME: She is on Humalog, Hydrochlorothiazide, Lisinopril, Simvastatin, Vitamin B. REVIEW OF SYSTEMS: No headache, no photophobia, no shortness of breath, no orthopnea, no PND. No paroxysmal nocturnal dyspnea, no chest pain, no abdominal pain, no constipation, no diarrhea, no dysuria, no lower extremity edema. No skin rash. Positive induration and drainage from the left foot plantar aspect. No syncope, no seizure activity. MEDICATIONS: Currently she is on Vancomycin, Atorvastatin, Hydrochlorothiazide, Lisinopril, Metoprolol, Insulin 70/30, Famotidine, Enoxaparin, Mag Sulfate. PHYSICAL EXAMINATION: Her temperature is 98, pulse rate of 98, respiration rate of 20, blood pressure of 126/84. Head and neck examination: Normocephalic, atraumatic. Neck is supple. Lungs are clear.Cardiovascular system: Positive S1, S2, S4, no murmur. Abdominal exam: Positive bowel sounds, nontender, no organomegaly, no mass. Extremities: No edema. Skin examination: There is no rash. Left footplantar aspect callus area there is opening with purulent drainage. Dorsalis pedis pulses are intact. LABORATORY DATA: Sodium is 136, potassium 4.2, chloride 104, bicarbonate 24, BUN 19, creatinine of 1, alkaline phosphatase of 167, AST of 82, ALT of 62. White count of 9, hemoglobin of 11, [id number], platelet of 281, segmental of 62%. MRI of the foot, no convincing evidence for osteomyelitis, neuropathic changes of 2nd digital partial amputation. ASSESSMENT AND PLAN: 1. Left diabetic foot infection with possible superficial abscess. MRI was negative for true osteomyelitis. At this point, patient is on Vancomycin monotherapy. I agree with vascular evaluation for possible incision and drainage if there is further soft tissue loculation and infection. Once that isdone, patient can be transitioned to oral antibiotics, combination of Doxycycline with Fluoroquinolone or Doxycycline with a second generation cephalosporin such as Ceftin or Omnicef would be ideal. 2. Type 2 diabetes, poor blood sugar control. Hemoglobin A1c of 9. Patient advised on good glycemiccontrol for good wound healing. 3. 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 4. Hypertension. Blood pressures are stable. #[id number] /NTS S BUFFER documented in this encounter ED Notes * Alyse Lott RN - 02/04/2017 2:32 PM CST SBAR tubed to floor. S BUFFER * Mary Beth Norman RN - 02/04/2017 2:25 PM CST Atilio rojas S BUFFER * Alyse Lott RN - 02/04/2017 12:57 PM CST Images from the original note were not included. 02/04/17 1257 Wound 02/04/17 Diabetic ulcer Foot Left Date First Assessed/Time First Assessed: 02/04/17 1253 Wound number: 1 Wound Type: Diabetic ulcer Location: Foot Wound Location Orientation: Left Pre- existing: Yes Wound Bed Assessment Other (Comment) Images in this note were compressed because they were too large. The original images are available in the [employer]. S BUFFER * Jurgen Posadas DNP - 02/04/2017 11:31 AM CST Images from the original note were not included. History Chief Complaint Patient presents with ??? Wound DIABETIC WITH NEW WOUNDS ON LEFT FOOT, HX OF AMPUTATIONS, ODOR, DRAINAGE ON SOLE OF FOOT Lena Youngblood is a 46-year-old female who presented to the ED with complaints of wound to left foot that started draining purulent material and very odorous 2-3 days ago. Reports having history of Charcot foot with diabetes mellitus and peripheral vascular disease. Reports plantar first metatarsal tender to palpation. Denies acute injury. Denies fever or other symptoms at this time. Reports taking medications at home as prescribed. Past Medical History: Diagnosis Date ??? Arthritis ??? Charcot foot due to diabetes mellitus LEFT FOOT ??? Diabetes mellitus ??? Diabetic neuropathy ??? Hypertension ??? Renal disorder Prior to Admission medications Medication Sig Start Date End Date Taking? Authorizing Provider HUMALOG MIX 75/25 (75-25) 100 UNIT/ML Suspension Inject 50 Units into the skin 2 (two) times daily before meals. 12/29/16 Yes Doc Abstract hydrochlorothiazide 25 MG tablet Take 25 mg by mouth nightly. Yes Doc Abstract lisinopril 40 MG tablet Take 40 mg by mouth nightly. 11/03/16 Yes Doc Abstract metoprolol tartrate 100 MG tablet Take 100 mg by mouth nightly. 12/28/16 Yes Doc Abstract simvastatin 40 MG tablet Take 40 mg by mouth nightly at bedtime. 11/03/16 Yes Doc Abstract vitamin B-12 100 MCG tablet Take 50 mcg by mouth daily. Yes Doc Abstract Past Surgical History: Procedure Laterality Date ??? 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 EYE SURGERY ??? FRACTURE SURGERY ??? HYSTERECTOMY ??? RETINAL DETACHMENT SURGERY Right No family history on file. Social History Substance Use Topics ??? Smoking status: Never Smoker ??? Smokeless tobacco: Never Used ??? Alcohol use No Review of Systems Constitutional: Negative. Negative for diaphoresis and fever. HENT: Negative. Negative for congestion, rhinorrhea and sinus pressure. Eyes: Negative. Negative for pain. Respiratory: Negative. Negative for cough and shortness of breath. Cardiovascular: Negative. Negative for chest pain. Gastrointestinal: Negative. Negative for abdominal pain. Genitourinary: Negative for dysuria and flank pain. Musculoskeletal: Positive for arthralgias (Left foot). Negative for back pain, neck pain and neck stiffness. Skin: Negative. Negative for rash. Neurological: Negative. Negative for dizziness, weakness and headaches. Hematological: Negative. Psychiatric/Behavioral: Negative. Negative for agitation. All other systems reviewed and are negative. Physical Exam Filed Vitals: 02/05/17 2005 02/06/17 0612 02/06/17 1528 02/07/17 0005 BP: 145/76 126/85 140/72 126/84 Pulse: 80 69 81 98 Resp: Temp: 97.6 ??F (36.4 ??C) 97.6 ??F (36.4 ??C) 98.3 ??F (36.8 ??C) 98.1 ??F (36.7 ??C) TempSrc: Oral Oral Oral Oral SpO2: 99% 95% 100% 93% Weight: Height: Physical Exam Constitutional: She is oriented to person, place, and time. She appears well- developed and well-nourished. No distress. HENT: Head: Normocephalic. Nose: Nose normal. Eyes: Pupils are equal, round, and reactive to light. Right eye exhibits no discharge. Left eye exhibits no discharge. Neck: Normal range of motion. Cardiovascular: Normal rate, regular rhythm and normal heart sounds. Pulmonary/Chest: Effort normal and breath sounds normal. No respiratory distress. Abdominal: Soft. Bowel sounds are normal. There is no tenderness. Musculoskeletal: Normal range of motion. She exhibits no edema. Left foot: There is tenderness. Feet: Unable to palpate pedal pulse left foot but patient states has peripheral vascular disease with 2 toes being amputated. Color appears within normal limits. Neurological: She is alert and oriented to person, place, and time. She has normal reflexes. Skin: Skin is warm and dry. No rash noted. Psychiatric: She has a normal mood and affect. Nursing note and vitals reviewed. Labs Reviewed CBC W/DIFF AUTOMATED - Abnormal; Notable for the following: Result Value RBC 4.19 (*) HCT 36.7 (*) NEUTROPHILS 66.7 (*) MONOCYTES 3.5 (*) All other components within normal limits COMPREHENSIVE METABOLIC PANEL - Abnormal; Notable for the following: GLUCOSE 236 (*) CREATININE 1.22 (*) SODIUM 134 (*) CHLORIDE 99 (*) TOTAL PROTEIN 9.8 (*) ALK PHOS 166 (*) A/G RATIO 0.6 (*) eGFR Non-Afr. Amer. 53 (*) All other components within normal limits SED RATE, ERYTHROCYTE (ESR) - Abnormal; Notable for the following: ESR 88 (*) All other components within normal limits C-REACTIVE PROTEIN - Abnormal; Notable for the following: C-REACTIVE PROTEIN 2.93 (*) All other components within normal limits CBC W/DIFF AUTOMATED - Abnormal; Notable for the following: RBC 3.55 (*) HGB 10.7 (*) HCT 31.8 (*) All other components within normal limits COMPREHENSIVE METABOLIC PANEL - Abnormal; Notable for the following: GLUCOSE 153 (*) ALBUMIN 2.6 (*) AST 82 (*) ALT 62 (*) ALK PHOS 167 (*) A/G RATIO 0.5 (*) All other components within normal limits MAGNESIUM - Abnormal; Notable for the following: MAGNESIUM 1.7 (*) All other components within normal limits HEMOGLOBIN, GLYCOSYLATED - Abnormal; Notable for the following: HGB A1C 9.5 (*) All other components within normal limits BASIC METABOLIC PANEL - Abnormal; Notable for the following: GLUCOSE 226 (*) All other components within normal limits CBC W/DIFF AUTOMATED - Abnormal; Notable for the following: RBC 3.56 (*) HGB 10.8 (*) HCT 31.9 (*) All other components within normal limits MAGNESIUM - Abnormal; Notable for the following: MAGNESIUM 1.7 (*) All other components within normal limits BASIC METABOLIC PANEL - Abnormal; Notable for the following: GLUCOSE 230 (*) BUN 19 (*) CREATININE 1.03 (*) All other components within normal limits CBC W/DIFF AUTOMATED - Abnormal; Notable for the following: RBC 3.71 (*) HGB 11.1 (*) HCT 33.3 (*) All other components within normal limits MAGNESIUM - Abnormal; Notable for the following: MAGNESIUM 1.7 (*) All other components within normal limits POCT GLUCOSE - CORREA DOCKED DEVICE - Abnormal; Notable for the following: GLUCOSE POC 224 (*) All other components within normal limits POCT GLUCOSE - CORREA DOCKED DEVICE - Abnormal; Notable for the following: GLUCOSE POC 268 (*) All other components within normal limits POCT GLUCOSE - CORREA DOCKED DEVICE - Abnormal; Notable for the following: GLUCOSE POC 163 (*) All other components within normal limits POCT GLUCOSE - CORREA DOCKED DEVICE - Abnormal; Notable for the following: GLUCOSE POC 234 (*) All other components within normal limits POCT GLUCOSE - CORREA DOCKED DEVICE - Abnormal; Notable for the following: GLUCOSE POC 296 (*) All other components within normal limits POCT GLUCOSE - CORREA DOCKED DEVICE - Abnormal; Notable for the following: GLUCOSE POC 270 (*) All other components within normal limits POCT GLUCOSE - CORREA DOCKED DEVICE - Abnormal; Notable for the following: GLUCOSE POC 207 (*) All other components within normal limits POCT GLUCOSE - CORREA DOCKED DEVICE - Abnormal; Notable for the following: GLUCOSE POC 210 (*) All other components within normal limits POCT GLUCOSE - CORREA DOCKED DEVICE - Abnormal; Notable for the following: GLUCOSE POC 287 (*) All other components within normal limits POCT GLUCOSE - CORREA DOCKED DEVICE - Abnormal; Notable for the following: GLUCOSE POC 317 (*) All other components within normal limits POCT GLUCOSE - CORREA DOCKED DEVICE - Abnormal; Notable for the following: GLUCOSE POC 218 (*) All other components within normal limits LACTIC ACID LACTIC ACID LACTIC ACID VANCOMYCIN TROUGH CULTURE, BACTERIA, BLOOD CULTURE, BACTERIA, BLOOD XR FOOT LT 3V Final Result by User, [id number] (02/04 1206) Examination: Left foot 3 views Exam date/time: 02/04/2017 11:32 AM Reason For Exam: Pain, wound 1st metatarsal osteomyelitis. Comparison: MRI left foot 12/23/2015; left x-ray 11/24/2015 Technique: AP, oblique and lateral views of the left foot were obtained. Findings: Changes of second toe amputation new from the prior study. Stable amputation third toe at the base of the proximal phalanx. Overlying stump nonspecific soft tissue thickening and swelling. No obvious emphysema. There is cortical erosion and lucency at the distal margin second metatarsal head which can be seen with osteomyelitis. Stable nonspecific midfoot arthritis and sclerosis. Large plantar calcaneal spur present. =====IMPRESSION:===== 1. 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 2. Focal cortical erosion and lucency at the head of the second metatarsal which can be seen with osteomyelitis. Confirmation with MRI can be obtained as clinically directed. FOOT LT WO CON (Results Pending) ED Course Procedures MDM Number of Diagnoses or Management Options Diagnosis management comments: Spoke with Dr New (Hospitalist) who agrees to admit. Amount and/or Complexity of Data Reviewed Clinical lab tests: reviewed Tests in the radiology section of CPT??: reviewed Tests in the medicine section of CPT??: reviewed SNOMED CT(R) 1. Foot osteomyelitis, left OSTEOMYELITIS OF ANKLE AND/OR FOOT Disposition: Admit ROOPA SOLOMON DNP 02/07/17 0940 S BUFFER documented in this encounter Plan of Treatment Upcoming Encounters Date Type Department Care Team (Late st Contact Info) Description 03/14/2024 11:45 AM BRASS BUFFER Office Visit [facility]-[address] [phone] Marvin Mckeon MD [address] [place] [address] 03/20/2024 11:30 AM BRASS BUFFER Office Visit [facility] Family Medicine - [address] [place] [phone] Abiodun Segura II, MD [address] [place], [place] [id number] Pending Results Name Type Priority Associated Diagnoses Date /Time POCT glucose Point of Care Testing - Docked Device Routine 02/08/2017 6:[address] documented as of this encounter Procedures Procedure Name Priority Date/Time Associated Diagnosis Comments POCT GLUCOSE - CORREA DOCKED DEVICE Routine 02/08/2017 11:44 AM BRASS BUFFER POCT GLUCOSE - CORREA DOCKED DEVICE Routine 02/08/2017 6:44 AM BRASS BUFFER COMPREHENSIVE METABOLIC PANEL Routine 02/08/2017 4:50 AM BRASS BUFFER CBC W/DIFF AUTOMATED Routine 02/08/2017 4:50 AM BRASS BUFFER MAGNESIUM Routine 02/08/2017 4:50 AM BRASS BUFFER POCT GLUCOSE - CORREA DOCKED DEVICE Routine 02/07/2017 9:26 PM BRASS BUFFER MRSA SCREENING Routine 02/07/2017 6:30 PM BRASS BUFFER POCT GLUCOSE - CORREA DOCKED DEVICE Routine 02/07/2017 4:47 PM BRASS BUFFER POCT GLUCOSE - CORREA DOCKED DEVICE Routine 02/07/2017 12:32 PM BRASS BUFFER MRI FOOT LT WO CON Today 02/07/2017 11 :05 AM BRASS BUFFER POCT GLUCOSE - CORREA DOCKED DEVICE Routine 02/07/2017 6:33 AM BRASS BUFFER BASIC METABOLIC PANEL Routine 02/07/2017 4:34 AM BRASS BUFFER CBC W/DIFF AUTOMATED Routine 02/07/2017 4:34 AM BRASS BUFFER MAGNESIUM Routine 02/07/2017 4:34 AM BRASS BUFFER POCT GLUCOSE - CORREA DOCKED DEVICE Routine 02/06/2017 11:10 PM BRASS BUFFER POCT GLUCOSE - CORREA DOCKED DEVICE Routine 02/06/2017 6:17 PM BRASS BUFFER POCT GLUCOSE - CORREA DOCKED DEVICE Routine 02/06/2017 12:26 PM BRASS BUFFER POCT GLUCOSE - CORREA DOCKED DEVICE Routine 02/06/2017 5:58 AM BRASS BUFFER VANCOMYCIN TROUGH TIMED 02/06/2017 1:1 2 AM BRASS BUFFER BASIC METABOLIC PANEL Routine 02/06/2017 1:12 AM BRASS BUFFER CBC W/DIFF AUTOMATED Routine 02/06/2017 1:12 AM BRASS BUFFER MAGNESIUM Routine 02/06/2017 1:12 AM BRASS BUFFER POCT GLUCOSE - CORREA DOCKED DEVICE Routine 02/05/2017 8:31 PM BRASS BUFFER POCT GLUCOSE - CORREA DOCKED DEVICE Routine 02/05/2017 4:47 PM BRASS BUFFER POCT GLUCOSE - CORREA DOCKED DEVICE Routine 02/05/2017 11:29 AM BRASS BUFFER POCT GLUCOSE - CORREA DOCKED DEVICE Routine 02/05/2017 6:52 AM BRASS BUFFER HEMOGLOBIN, GLYCOSYLATED Routine 02/05/2017 4:47 AM BRASS BUFFER COMPREHENSIVE METABOLIC PANEL Routine 02/05/2017 4:47 AM BRASS BUFFER CBC W/DIFF AUTOMATED Routine 02/05/2017 4:47 AM BRASS BUFFER MAGNESIUM Routine 02/05/2017 4:47 AM BRASS BUFFER SED RATE, ERYTHROCYTE (ESR) Routine 02/04/2017 11:10 PM BRASS BUFFER C-REACTIVE PROTEIN Routine 02/04/2017 11 :10 PM BRASS BUFFER POCT GLUCOSE - CORREA DOCKED DEVICE Routine 02/04/2017 9:10 PM BRASS BUFFER ECG 12-LEAD STAT 02/04/2017 8:48 PM BRASS BUFFER POCT GLUCOSE - CORREA DOCKED DEVICE Routine 02/04/2017 5:26 PM BRASS BUFFER LACTIC ACID TIMED 02/04/2017 3:24 PM BRASS BUFFER LACTIC ACID TIMED 02/04/2017 1:12 PM BRASS BUFFER XR FOOT LT 3V STAT 02/04/2017 11:52 AM BRASS BUFFER COMPREHENSIVE METABOLIC PANEL STAT 02/04/2017 11:34 AM BRASS BUFFER LACTIC ACID TIMED 02/04/2017 11:34 AM BRASS BUFFER CULTURE, BACTERIA, BLOOD STAT 02/04/2017 11:34 AM BRASS BUFFER CULTURE, BACTERIA, BLOOD STAT 02/04/2017 11:34 AM BRASS BUFFER CBC W/DIFF AUTOMATED STAT 02/04/2017 11:34 AM BRASS BUFFER documented in this encounter Results * (ABNORMAL) POCT glucose (02/08/2017 11:44 AM BRASS BUFFER) [facility] GLUCOSE POC 289(H) 70 - 99 mg/dL 02/08/2017 11:47 AM BRASS BUFFER [facility] ORDERS INTERFACE 02/08/2017 11:4 4 AM BRASS BUFFER us Eduardo New MD POCT ORDERABLES - DEVICE Final R esult [facility] ORDERS INTERFACE US * (ABNORMAL) CBC W/DIFF AUTOMATED (02/08/2017 4:50 AM BRASS BUFFER) WBC 10.0 4.8 - 10.8 x10'3/uL 02/08/2017 5:33 AM [facility] RBC 3.52(L) 4.20 - 5.40 x10'6/uL 02/08/2017 5:33 AM [facility] HGB 10.4(L) 12.0 - 16.0 G/DL 02/08/2017 5:33 AM [facility] HCT 31.6(L) 38.0 - 48.0 % 02/08/2017 5:33 AM [facility] MCV 89.8 81.0 - 99.0 FL 02/08/2017 5:33 AM [facility] MCH 29.5 27.0 - 31.0 PG 02/08/2017 5:33 AM [facility] MCHC 32.9 32.0 - 36.0 G/DL 02/08/2017 5:33 AM [facility] RDW 12.9 11.5 - 14.5 % 02/08/2017 5:33 AM [facility] PLT 262 130 - 400 x10'3/uL 02/08/2017 5:33 AM [facility] MPV 11.2 9.3 - 12.2 FL 02/08/2017 5:33 AM [facility] NEUTROPHILS % 65.7(H) 43.0 - 65.0 % 02/08/2017 5:33 AM [facility] LYMPHOCYTES % 25.8 20.0 - 46.0 % 02/08/2017 5:[address] [facility] MONOCYTES % 6.4 5.0 - 12.0 % 02/08/2017 5:[address] [facility] EOSINOPHILS 1.0 1.0 - 3.0 % 02/08/2017 5:[address] [facility] BASOPHILS 0.7 0.0 - 1.0 % 02/08/2017 5:33 AM [facility] IMMATURE GRANS % 0.4 0.0 - 1.0 % 02/08/2017 5:33 AM [facility] 02/08/2017 4:50 AM BRASS BUFFER us Sabrina Soria MD LABORATORY Final Result [facility] [address] [place] [address], [place] [phone] * (ABNORMAL) COMPREHENSIVE METABOLIC PANEL (02/08/2017 4:50 AM BRASS BUFFER) GLUCOSE 141(H) 70 - 99 MG/DL 02/08/2017 5:48 AM [facility] BUN 18 7 - 18 MG/DL 02/08/2017 5:48 AM [facility] CREATININE S/P/B 1.09(H) 0.55 - 1.02 MG/DL 02/08/2017 5:48 AM [facility] SODIUM S/P/B 140 136 - 145 MMOL/L 02/08/2017 5:48 AM [facility] POTASSIUM S/P/B 4.1 3.5 - 5.1 MMOL/L 02/08/2017 5:48 AM [facility] CHLORIDE S/P/B 106 100 - 108 MMOL/L 02/08/2017 5:48 AM [facility] CO2 27.3 21 - 32 MMOL/L 02/08/2017 5:48 AM [facility] CALCIUM S/P/B 8.7 8.5 - 10.1 MG/DL 02/08/2017 5:48 AM [facility] BILIRUBIN TOTAL S/P/B 0.3 0.2 - 1.2 MG/DL 02/08/2017 5:48 AM [facility] TOTAL PROTEIN S/P/B 7.5 6.4 - 8.2 G/DL 02/08/2017 5:48 AM [facility] ALBUMIN S/P/B 2.6(L) 3.4 - 5.0 G/DL 02/08/2017 5:48 AM [facility] AST 47(H) 15 - 37 U/L 02/08/2017 5:48 AM [facility] ALT 80(H) 14 - 55 U/L 02/08/2017 5:48 AM [facility] ALKALINE PHOSPHATASE S/P/B 174(H) 50 - 136 U/L 02/08/2017 5:48 AM [facility] ANION GAP 10.8 8 - 20 MMOL/L 02/08/2017 5:48 AM [facility] BUN CREATININE RATIO 16.5 6 - 26 02/08/2017 5:48 AM [facility] A/G RATIO 0.5(L) 1.0 - 2.0 RATIO 02/08/2017 5:48 AM [facility] EGFR NON-AFR. AMER. >60 >60 ML/MIN/1.7 3 M2 02/08/2017 5:48 AM [facility] EGFR AFR. AMER. >60 >60 ML/MIN/1.7 3 M2 02/08/2017 5:[address] [facility] Comment: NOTE: eGFR is not calculated for patients <18 years of age. This is an estimated GFR (CKD EPI) and should not be used for calculating drug doses. 02/08/2017 4:50 AM [facility] us Wale Garcia MD LABORATORY Final Result Performing Organization Address [facility] Co de Phone Number [facility] [address] [place] [address], * MAGNESIUM (02/08/2017 4:50 AM [facility]) Pathologist [facility] MAGNESIUM 1.9 1.8 - 2.4 MG/DL 02/08/2017 5:[address] [facility] 02/08/2017 4:50 AM [facility] us Fatou Jerez NP LABORATORY Final Result Performing Organization Address [facility] Co de Phone Number [facility] [address] [place] [address], [place] [phone] * (ABNORMAL) POCT glucose (02/07/2017 9:26 PM [facility]) [facility] GLUCOSE POC 193(H) 70 - 99 mg/dL 02/08/2017 4:57 AM [facility] ORDERS INTERFACE 02/07/2017 9:26 PM [facility] us Eduardo New MD POCT ORDERABLES - DEVICE Final R esult Performing Organization Address [facility] Co de Phone Number [facility] ORDERS INTERFACE US * MRSA SCREENING (02/07/2017 6:30 PM [facility]) SPEC DESCRIPTION NASAL 02/07/2017 6:[address] [facility] SPECIAL REQUESTS NO SPECIAL REQUEST 02/07/2017 6:[address] [facility] CULTURE RESULT NO METHICILLIN RESISTANT STAPH AUREUS ISOLATED 02/08/2017 12:[address] [facility] SPECIMEN FROM INTERNAL NOSE / Unknown 02/07/2017 6:30 PM [facility] 02/07/2017 6:38 PM [facility] us Fatou Jerez NP MICROBIOLOGY - GENERAL ORDERAB LES Final Result Performing Organization Address [facility] Co de Phone Number [facility] [address] [place] [address], [place] [phone] * (ABNORMAL) POCT glucose (02/07/2017 4:47 PM [facility]) GLUCOSE POC 263(H) 70 - 99 mg/dL 02/07/2017 4:52 PM [facility] ORDERS INTERFACE 02/07/2017 4:47 PM [facility] us Eduardo New MD POCT ORDERABLES - DEVICE Final R esult Performing Organization Address [facility] Co de Phone Number [facility] ORDERS INTERFACE US * (ABNORMAL) POCT glucose (02/07/2017 12:32 PM [facility]) GLUCOSE POC 195(H) 70 - 99 mg/dL 02/07/2017 12:35 PM [facility] ORDERS INTERFACE 02/07/2017 12:3 2 PM [facility] us Eduardo New MD POCT ORDERABLES - DEVICE Final R esult Performing Organization Address [facility] Co de Phone Number [facility] ORDERS INTERFACE US * MRI FOOT LT WO CON (02/07/2017 11:05 AM [facility]) Anatomical Region Laterality Modality Foot Magnetic Resonan ce 02/07/2017 11:3 1 AM [facility] Impressions 02/07/2017 11:50 AM [facility] =====IMPRESSION:===== No convincing evidence of osteomyelitis. Neuropathic changes, second digit partial amputation, intrinsic muscular atrophy of the foot. Narrative 02/07/2017 11:50 AM [facility] EXAMINATION: MRI LEFT FOOT WITHOUT CONTRAST EXAM DATE/TIME: 02/07/2017 11:55 PM REASON FOR EXAM: ??Pain and swelling of the foot. Suspected osteomyelitis. ?? COMPARISON: 12/23/2015 TECHNIQUE: Mutiplanar, multisequence MRI of the left foot was obtained without the use of an IV contrast agent. FINDINGS: Patient is status post amputation of the second digit at the metatarsal phalangeal joint. Diffuse soft tissue swelling. Open wound at the plantar surface of the first digit near the metatarsal phalangeal joint. No convincing evidence of underlying osteomyelitis. Lisfranc ligament intact. Patchy increased T2 signal in the medial and intermediate cuneiforms and throughout the partially evaluated mid foot, concerning for neuropathic disease. Moderate intrinsic muscular atrophy of the foot. Procedure Note Isaías Jones MD - 02/07/2017 EXAMINATION: MRI LEFT FOOT WITHOUT CONTRAST EXAM DATE/TIME: 02/07/2017 11:55 PM REASON FOR EXAM: Pain and swelling of the foot. Suspected osteomyelitis. COMPARISON: 12/23/2015 TECHNIQUE: Mutiplanar, multisequence MRI of the left foot was obtainedwithout the use of an IV contrast agent. FINDINGS: Patient is status post amputation of the second digit at the metatarsal phalangeal joint. Diffuse soft tissue swelling. Open wound at the plantar surface of the first digit near the metatarsal phalangeal joint. No convincing evidence of underlying osteomyelitis. Lisfranc ligament intact. Patchy increased T2 signal in the medial and intermediate cuneiforms and throughout the partially evaluated mid foot, concerning for neuropathicdisease. Moderate intrinsic muscular atrophy of the foot. =====IMPRESSION:===== No convincing evidence of osteomyelitis. Neuropathic changes, second digit partial amputation, intrinsic muscularatrophy of the foot. us Sabrina Soria MD MRI Final Result * (ABNORMAL) POCT glucose (02/07/2017 6:33 AM [facility]) [facility] GLUCOSE POC 218(H) 70 - 99 mg/dL 02/07/2017 6:34 AM [facility] ORDERS INTERFACE 02/07/2017 6:33 AM [facility] Eduardo New MD POCT ORDERABLES - DEVICE Final R esult Performing Organization Address City/[facility]/ZIP Co de Phone Number [facility] ORDERS INTERFACE US * (ABNORMAL) MAGNESIUM (02/07/2017 4:34 AM [facility]) [facility] MAGNESIUM 1.7(L) 1.8 - 2.4 MG/DL 02/07/2017 6:02 AM [facility] 02/07/2017 4:34 AM [facility] us Sabrina Soria MD LABORATORY Final Result Performing Organization Address City/[facility] de Phone Number [facility] [address] [place] [address], [place] [phone] * (ABNORMAL) CBC W/DIFF AUTOMATED (02/07/2017 4:34 AM [facility]) [facility] WBC 9.0 4.8 - 10.8 x10'3/uL 02/07/2017 5:41 AM [facility] RBC 3.71(L) 4.20 - 5.40 x10'6/uL 02/07/2017 5:41 AM [facility] HGB 11.1(L) 12.0 - 16.0 G/DL 02/07/2017 5:41 AM [facility] HCT 33.3(L) 38.0 - 48.0 % 02/07/2017 5:41 AM [facility] MCV 89.8 81.0 - 99.0 FL 02/07/2017 5:41 AM [facility] MCH 29.9 27.0 - 31.0 PG 02/07/2017 5:41 AM [facility] MCHC 33.3 32.0 - 36.0 G/DL 02/07/2017 5:41 AM [facility] RDW 12.6 11.5 - 14.5 % 02/07/2017 5:41 AM [facility] PLT 281 130 - 400 x10'3/uL 02/07/2017 5:41 AM [facility] MPV 11.3 9.3 - 12.2 FL 02/07/2017 5:41 AM [facility] NEUTROPHILS % 62.1 43.0 - 65.0 % 02/07/2017 5:41 AM [facility] LYMPHOCYTES % 28.3 20.0 - 46.0 % 02/07/2017 5:41 AM [facility] MONOCYTES % 7.3 5.0 - 12.0 % 02/07/2017 5:41 AM [facility] EOSINOPHILS 1.2 1.0 - 3.0 % 02/07/2017 5:41 AM [facility] BASOPHILS 0.7 0.0 - 1.0 % 02/07/2017 5:41 AM [facility] IMMATURE GRANS % 0.4 0.0 - 1.0 % 02/07/2017 5:41 AM [facility] 02/07/2017 4:34 AM [facility] us Sabrina Soria MD LABORATORY Final Result [facility] [address] [place] [address], [place] [phone] * (ABNORMAL) BASIC METABOLIC PANEL (02/07/2017 4:34 AM [facility]) [facility] GLUCOSE 230(H) 70 - 99 MG/DL 02/07/2017 6:02 AM [facility] BUN 19(H) 7 - 18 MG/DL 02/07/2017 6:02 AM [facility] CREATININE S/P/B 1.03(H) 0.55 - 1.02 MG/DL 02/07/2017 6:02 AM [facility] SODIUM S/P/B 136 136 - 145 MMOL/L 02/07/2017 6:02 AM [facility] POTASSIUM S/P/B 4.2 3.5 - 5.1 MMOL/L 02/07/2017 6:02 AM [facility] CHLORIDE S/P/B 104 100 - 108 MMOL/L 02/07/2017 6:02 AM [facility] CO2 24.3 21 - 32 MMOL/L 02/07/2017 6:02 AM [facility] CALCIUM S/P/B 8.7 8.5 - 10.1 MG/DL 02/07/2017 6:02 AM [facility] ANION GAP 11.9 8 - 20 MMOL/L 02/07/2017 6:02 AM [facility] BUN CREATININE RATIO 18.4 6 - 26 02/07/2017 6:02 AM [facility] EGFR NON-AFR. AMER. >60 >60 ML/MIN/1.7 3 M2 02/07/2017 6:02 AM [facility] EGFR AFR. AMER. >60 >60 ML/MIN/1.7 3 M2 02/07/2017 6:02 AM [facility] Comment: NOTE: eGFR is not calculated for patients <18 years of age. This is an estimated GFR (CKD EPI) and should not be used for calculating drug doses. 02/07/2017 4:34 AM [facility] Sabrina Soria MD LABORATORY Final Result Performing Organization Address [facility]/ZIP Co de Phone Number [facility] [address] [place] [address], * (ABNORMAL) POCT glucose (02/06/2017 11:10 PM [facility]) GLUCOSE POC 317(H) 70 - 99 mg/dL 02/06/2017 11:20 PM [facility] ORDERS INTERFACE 02/06/2017 11:1 0 PM [facility] Eduardo New MD POCT ORDERABLES - DEVICE Final R esult Performing Organization Address [facility] Co de Phone Number [facility] ORDERS INTERFACE US * (ABNORMAL) POCT glucose (02/06/2017 6:17 PM [facility]) GLUCOSE POC 287(H) 70 - 99 mg/dL 02/06/2017 7:55 PM [facility] ORDERS INTERFACE 02/06/2017 6:17 PM [facility] Eduardo New MD POCT ORDERABLES - DEVICE Final R esult Performing Organization Address [facility] Co de Phone Number [facility] ORDERS INTERFACE US * (ABNORMAL) POCT glucose (02/06/2017 12:26 PM [facility]) GLUCOSE POC 210(H) 70 - 99 mg/dL 02/06/2017 12:38 PM [facility] ORDERS INTERFACE 02/06/2017 12:2 6 PM [facility] us Eduardo New MD POCT ORDERABLES - DEVICE Final R esult Performing Organization Address [facility]/ZIP Co de Phone Number [facility] ORDERS INTERFACE US * (ABNORMAL) POCT glucose (02/06/2017 5:58 AM [facility]) GLUCOSE POC 207(H) 70 - 99 mg/dL 02/06/2017 6:01 AM [facility] ORDERS INTERFACE 02/06/2017 5:58 AM [facility] Eduardo New MD POCT ORDERABLES - DEVICE Final R esult Performing Organization Address [facility]/ZIP Co de Phone Number [facility] ORDERS INTERFACE US * (ABNORMAL) MAGNESIUM (02/06/2017 1:12 AM [facility]) Pathologist [facility] MAGNESIUM 1.7(L) 1.8 - 2.4 MG/DL 02/06/2017 1:[address] [facility] 02/06/2017 1:12 AM [facility] us Sabrina Soria MD LABORATORY Final Result Performing Organization Address [facility] de Phone Number [facility] [address] [place] [address], [place] [phone] * (ABNORMAL) CBC W/DIFF AUTOMATED (02/06/2017 1:12 AM [facility]) WBC 7.1 4.8 - 10.8 x10'3/uL 02/06/2017 1:[address] [facility] RBC 3.56(L) 4.20 - 5.40 x10'6/uL 02/06/2017 1:24 AM [facility] HGB 10.8(L) 12.0 - 16.0 G/DL 02/06/2017 1:24 AM [facility] HCT 31.9(L) 38.0 - 48.0 % 02/06/2017 1:24 AM [facility] MCV 89.6 81.0 - 99.0 FL 02/06/2017 1:24 AM [facility] MCH 30.3 27.0 - 31.0 PG 02/06/2017 1:24 AM [facility] MCHC 33.9 32.0 - 36.0 G/DL 02/06/2017 1:24 AM [facility] RDW 12.4 11.5 - 14.5 % 02/06/2017 1:24 AM [facility] PLT 240 130 - 400 x10'3/uL 02/06/2017 1:24 AM [facility] MPV 10.8 9.3 - 12.2 FL 02/06/2017 1:24 AM [facility] NEUTROPHILS % 51.8 43.0 - 65.0 % 02/06/2017 1:24 AM [facility] LYMPHOCYTES % 38.4 20.0 - 46.0 % 02/06/2017 1:24 AM [facility] MONOCYTES % 7.4 5.0 - 12.0 % 02/06/2017 1:24 AM [facility] EOSINOPHILS 1.3 1.0 - 3.0 % 02/06/2017 1:24 AM [facility] BASOPHILS 0.7 0.0 - 1.0 % 02/06/2017 1:24 AM [facility] IMMATURE GRANS % 0.4 0.0 - 1.0 % 02/06/2017 1:24 AM [facility] 02/06/2017 1:12 AM [facility] us Sabrina Soria MD LABORATORY Final Result [facility] [address] [place] [address], [place] [phone] * (ABNORMAL) BASIC METABOLIC PANEL (02/06/2017 1:12 AM [facility]) [facility] GLUCOSE 226(H) 70 - 99 MG/DL 02/06/2017 1:39 AM [facility] BUN 16 7 - 18 MG/DL 02/06/2017 1:39 AM [facility] CREATININE S/P/B 0.90 0.55 - 1.02 MG/DL 02/06/2017 1:39 AM [facility] SODIUM S/P/B 139 136 - 145 MMOL/L 02/06/2017 1:39 AM [facility] POTASSIUM S/P/B 4.3 3.5 - 5.1 MMOL/L 02/06/2017 1:39 AM [facility] CHLORIDE S/P/B 104 100 - 108 MMOL/L 02/06/2017 1:39 AM [facility] CO2 27.6 21 - 32 MMOL/L 02/06/2017 1:39 AM [facility] CALCIUM S/P/B 8.9 8.5 - 10.1 MG/DL 02/06/2017 1:39 AM [facility] ANION GAP 11.7 8 - 20 MMOL/L 02/06/2017 1:39 AM [facility] BUN CREATININE RATIO 17.7 6 - 26 02/06/2017 1:39 AM [facility] EGFR NON-AFR. AMER. >60 >60 ML/MIN/1.7 3 M2 02/06/2017 1:39 AM [facility] EGFR AFR. AMER. >60 >60 ML/MIN/1.7 3 M2 02/06/2017 1:39 AM [facility] Comment: NOTE: eGFR is not calculated for patients <18 years of age. This is an estimated GFR (CKD EPI) and should not be used for calculating drug doses. 02/06/2017 1:12 AM [facility] Sabrina Soria MD LABORATORY Final Result Performing Organization Address [facility] de Phone Number [facility] [address] [place] [address], * VANCOMYCIN TROUGH (02/06/2017 1:12 AM [facility]) Pathologist [facility] VANCOMYCIN TROUGH 18.3 MCG/ML 02/06/2017 1:[address] [facility] Comment: ? THERAPEUTIC: 10.0-20.0 ? TOXIC: >25.0 VANCOMYCIN UNK 02/06/2017 2:[address] [facility] 02/06/2017 1:12 AM [facility] Eduardo New MD LABORATORY Final Result Performing Organization Address [facility] de Phone Number [facility] [address] [place] [id number], * (ABNORMAL) POCT glucose (02/05/2017 8:31 PM [facility]) GLUCOSE POC 270(H) 70 - 99 mg/dL 02/05/2017 8:43 PM [facility] ORDERS INTERFACE 02/05/2017 8:31 PM [facility] us Eduardo New MD POCT ORDERABLES - DEVICE Final R esult Performing Organization Address [facility] de Phone Number [facility] ORDERS INTERFACE US * (ABNORMAL) POCT glucose (02/05/2017 4:47 PM [facility]) GLUCOSE POC 296(H) 70 - 99 mg/dL 02/05/2017 5:13 PM [facility] ORDERS INTERFACE 02/05/2017 4:47 PM [facility] us Eduardo Nwe MD POCT ORDERABLES - DEVICE Final R esult Performing Organization Address [facility] Co de Phone Number [facility] ORDERS INTERFACE US * (ABNORMAL) POCT glucose (02/05/2017 11:29 AM [facility]) GLUCOSE POC 234(H) 70 - 99 mg/dL 02/05/2017 11:32 AM [facility] ORDERS INTERFACE 02/05/2017 11:2 9 AM [facility] us Eduardo New MD POCT ORDERABLES - DEVICE Final R esult Performing Organization Address [facility] Co de Phone Number [facility] ORDERS INTERFACE US * (ABNORMAL) POCT glucose (02/05/2017 6:52 AM [facility]) GLUCOSE POC 163(H) 70 - 99 mg/dL 02/05/2017 6:56 AM [facility] ORDERS INTERFACE 02/05/2017 6:52 AM [facility] us Eduardo New MD POCT ORDERABLES - DEVICE Final R esult Performing Organization Address [facility] Co de Phone Number [facility] ORDERS INTERFACE US * (ABNORMAL) HEMOGLOBIN, GLYCOSYLATED (02/05/2017 4:47 AM [facility]) HGB A1C 9.5(H) 4.2 - 6.3 % 02/05/2017 9:[address] [facility] Comment: ADA GUIDELINES 2010 5.7 TO 6.4% INCREASED RISK OF DIABETES > OR = 6.5% CONSISTENT WITH DIABETES ESTIMATED AVG GLUCOSE 226 mg/dL 02/05/2017 9:[address] [facility] 02/05/2017 4:47 AM [facility] us Sabrina Soria MD LABORATORY Final Result Performing Organization Address City/[facility]/ZIP Co de Phone Number [facility] [address] [place] [address], * (ABNORMAL) MAGNESIUM (02/05/2017 4:47 AM [facility]) MAGNESIUM 1.7(L) 1.8 - 2.4 MG/DL 02/05/2017 5:[address] [facility] 02/05/2017 4:47 AM [facility] us Eduardo New MD LABORATORY Final Result Performing Organization Address [facility] Co de Phone Number [facility] [address] [place] [address], * (ABNORMAL) COMPREHENSIVE METABOLIC PANEL (02/05/2017 4:47 AM [facility]) GLUCOSE 153(H) 70 - 99 MG/DL 02/05/2017 5:44 AM [facility] BUN 16 7 - 18 MG/DL 02/05/2017 5:44 AM [facility] CREATININE S/P/B 0.94 0.55 - 1.02 MG/DL 02/05/2017 5:44 AM [facility] SODIUM S/P/B 138 136 - 145 MMOL/L 02/05/2017 5:44 AM [facility] POTASSIUM S/P/B 4.0 3.5 - 5.1 MMOL/L 02/05/2017 5:44 AM [facility] CHLORIDE S/P/B 103 100 - 108 MMOL/L 02/05/2017 5:44 AM [facility] CO2 28.2 21 - 32 MMOL/L 02/05/2017 5:44 AM [facility] CALCIUM S/P/B 8.7 8.5 - 10.1 MG/DL 02/05/2017 5:44 AM [facility] BILIRUBIN TOTAL S/P/B 0.2 0.2 - 1.2 MG/DL 02/05/2017 5:44 AM [facility] TOTAL PROTEIN S/P/B 7.5 6.4 - 8.2 G/DL 02/05/2017 5:44 AM [facility] ALBUMIN S/P/B 2.6(L) 3.4 - 5.0 G/DL 02/05/2017 5:44 AM [facility] AST 82(H) 15 - 37 U/L 02/05/2017 5:44 AM [facility] ALT 62(H) 14 - 55 U/L 02/05/2017 5:44 AM [facility] ALKALINE PHOSPHATASE S/P/B 167(H) 50 - 136 U/L 02/05/2017 5:44 AM [facility] ANION GAP 10.8 8 - 20 MMOL/L 02/05/2017 5:44 AM [facility] BUN CREATININE RATIO 17.1 6 - 26 02/05/2017 5:44 AM [facility] A/G RATIO 0.5(L) 1.0 - 2.0 RATIO 02/05/2017 5:44 AM [facility] EGFR NON-AFR. AMER. >60 >60 ML/MIN/1.7 3 M2 02/05/2017 5:44 AM [facility] EGFR AFR. AMER. >60 >60 ML/MIN/1.7 3 M2 02/05/2017 5:44 AM [facility] Comment: NOTE: eGFR is not calculated for patients <18 years of age. This is an estimated GFR (CKD EPI) and should not be used for calculating drug doses. 02/05/2017 4:47 AM [facility] Eduardo New MD LABORATORY Final Result [facility] [address] [place] [address], * (ABNORMAL) CBC W/DIFF AUTOMATED (02/05/2017 4:47 AM [facility]) WBC 8.0 4.8 - 10.8 x10'3/uL 02/05/2017 5:24 AM [facility] RBC 3.55(L) 4.20 - 5.40 x10'6/uL 02/05/2017 5:24 AM [facility] HGB 10.7(L) 12.0 - 16.0 G/DL 02/05/2017 5:24 AM [facility] HCT 31.8(L) 38.0 - 48.0 % 02/05/2017 5:24 AM [facility] MCV 89.6 81.0 - 99.0 FL 02/05/2017 5:24 AM [facility] MCH 30.1 27.0 - 31.0 PG 02/05/2017 5:24 AM [facility] MCHC 33.6 32.0 - 36.0 G/DL 02/05/2017 5:24 AM [facility] RDW 12.3 11.5 - 14.5 % 02/05/2017 5:24 AM [facility] PLT 258 130 - 400 x10'3/uL 02/05/2017 5:24 AM [facility] MPV 11.2 9.3 - 12.2 FL 02/05/2017 5:[address] [facility] NEUTROPHILS % 63.9 43.0 - 65.0 % 02/05/2017 5:[address] [facility] LYMPHOCYTES % 27.7 20.0 - 46.0 % 02/05/2017 5:[address] [facility] MONOCYTES % 5.9 5.0 - 12.0 % 02/05/2017 5:[address] [facility] EOSINOPHILS 1.6 1.0 - 3.0 % 02/05/2017 5:[address] [facility] BASOPHILS 0.5 0.0 - 1.0 % 02/05/2017 5:[address] [facility] IMMATURE GRANS % 0.4 0.0 - 1.0 % 02/05/2017 5:[address] [facility] 02/05/2017 4:47 AM [facility] us Eduardo New MD LABORATORY Final Result [facility] [address] [place] [address], [place] [phone] * (ABNORMAL) C-REACTIVE PROTEIN (02/04/2017 11:10 PM [facility]) C-REACTIVE PROTEIN 2.93(H) <0.29 mg/dL 02/04/2017 11:[address] [facility] 02/04/2017 11:1 0 PM [facility] us Sabrina Soria MD LABORATORY Final Result [facility] [address] [place] [address], [place] [phone] * (ABNORMAL) SED RATE, ERYTHROCYTE (ESR) (02/04/2017 11:10 PM [facility]) ESR 88(H) 0 - 20 mm/hr 02/05/2017 12:26 AM [facility] 02/04/2017 11:1 0 PM [facility] us Sabrina Soria MD LABORATORY Final Result Performing Organization Address [facility] Co de Phone Number [facility] [address] [place] [address], * (ABNORMAL) POCT glucose (02/04/2017 9:10 PM [facility]) [facility] GLUCOSE POC 268(H) 70 - 99 mg/dL 02/04/2017 9:12 PM [facility] ORDERS INTERFACE 02/04/2017 9:10 PM [facility] us Eduardo New MD POCT ORDERABLES - DEVICE Final R esult Performing Organization Address [facility] de Phone Number [facility] ORDERS INTERFACE US * ECG 12-Lead (02/04/2017 8:48 PM [facility]) 02/04/2017 8:48 PM [facility] Narrative [facility] [facility] - 02/04/2017 8:48 PM BRASS BUFFER ?[facility] [place] ? [address] [place] ? Test Date: ?2017-02-04 Pat Name: ? LENA YOUNGBLOOD ?Department: ?? 41 ? Room: ? A31 Gender: ? Female ? 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 RB : ?1970 ? Requested By: JURGEN POSADAS Order Number: [id number] ?Reading MD: ?? Jermain Soriano ? Measurements Intervals ?[place] ? Rate: ? 75 ? P: ?42 [place]: ? 191 ?QRS: ?13 QRSD: ? 81 ? T: ?12 QT: ? 388 ? QTc: ?433 ? 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: MARILYN : 1970 Requested By: JURGEN POSADAS Order Number: [id number] Reading MD: Jermain Soriano Measurements Intervals [place] Rate: 75 P: 42 [place]: 191 QRS: 13 QRSD: 81 T: 12 QT: 388 QTc: 433 Interpretive Statements SINUS RHYTHM MODERATE VOLTAGE CRITERIA FOR LVH, CONSIDER NORMAL VARIANT NONSPECIFIC T-WAVE ABNORMALITY Compared to ECG 02/02/2016 13:10:02 No significant changes S BUFFER Jurgen Posadas DNP ECG ORDERABLES Final Result Performing Organization Address [facility] Co de Phone Number [facility] * (ABNORMAL) POCT glucose (02/04/2017 5:26 PM BRASS BUFFER) [facility] GLUCOSE POC 224(H) 70 - 99 mg/dL 02/04/2017 5:33 PM BR[facility] ORDERS INTERFACE 02/04/2017 5:26 PM BR[facility]FFER Eduardo New MD POCT ORDERABLES - DEVICE Final R esult Performing Organization Address [facility] Co de Phone Number [facility] ORD[facility] INTERFACE US * LACTIC ACID (02/04/2017 3:24 PM BRASS BUFFER) LACTIC ACID VENOUS 0.6 0.4 - 2.0 MMOL/L 02/04/2017 3:48 PM BR[facility] 02/04/2017 3:24 PM BR[facility]FFER Jurgen Posadas DNP LABORATORY Final Result Performing Organization Address City/[facility]/ZIP Co de Phone Number [facility] [address] [place] [phone], * LACTIC ACID (02/04/2017 1:12 PM BRASS BUFFER) LACTIC ACID VENOUS 1.9 0.4 - 2.0 MMOL/L 02/04/2017 2:[address] [facility] 02/04/2017 1:12 PM BR[facility]FFER Jurgen Posadas [facility] Final Result Performing Organization Address [facility] Co de Phone Number [facility] [address] [place] [id number], * XR FOOT LT 3V (02/04/2017 11:52 AM BRASS BUFFER) Anatomical Region Laterality Modality Foot Radiographic Shelli ging 02/04/2017 11:5 8 AM BR[facility]FFER Impressions 02/04/2017 12:03 PM BRASS BUFFER =====IMPRESSION:===== 1. 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 2. Focal cortical erosion and lucency at the head of the second metatarsal which can be seen with osteomyelitis. Confirmation with MRI can be obtained as clinically directed. Narrative 02/04/2017 12:03 PM BRASS BUFFER Examination: Left foot 3 views Exam date/time: 02/04/2017 11:32 AM Reason For Exam: ??Pain, wound 1st metatarsal osteomyelitis. ? Comparison: MRI left foot 12/23/2015; left x-ray 11/24/2015 Technique: AP, oblique and lateral views of the left foot were obtained. Findings: Changes of second toe amputation new from the prior study. Stable amputation third toe at the base of the proximal phalanx. Overlying stump nonspecific soft tissue thickening and swelling. No obvious emphysema. There is cortical erosion and lucency at the distal margin second metatarsal head which can be seen with osteomyelitis. Stable nonspecific midfoot arthritis and sclerosis. Large plantar calcaneal spur present. Procedure Note Liseth Diaz MD - 02/04/2017 Examination: Left foot 3 views Exam date/time: 02/04/2017 11:32 AM Reason For Exam: Pain, wound 1st metatarsal osteomyelitis. Comparison: MRI left foot 12/23/2015; left x-ray 11/24/2015 Technique: AP, oblique and lateral views of the left foot were obtained. Findings: Changes of second toe amputation new from the prior study. Stable amputation third toe at the base of the proximal phalanx. Overlyingstump nonspecific soft tissue thickening and swelling. No obvious emphysema. There is cortical erosion and lucency at the distal margin secondmetatarsal head which can be seen with osteomyelitis. Stable nonspecific midfoot arthritis and sclerosis. Large plantar calcaneal spur present. =====IMPRESSION:===== 1. Changes of second toe amputation new from the prior study; stable thirdtoe amputation. 2. Focal cortical erosion and lucency at the head of the second metatarsalwhich can be seen with osteomyelitis. Confirmation with MRI can be obtained as clinically directed. Jurgen Posadas DNP GENERAL IMAGING Final Result * CULTURE, BACTERIA, BLOOD (02/04/2017 11:34 AM BRASS BUFFER) SPEC DESCRIPTION BLOOD 02/04/2017 11:[address] [facility] SPECIAL REQUESTS FOREARM RIGHT 02/04/2017 11:[address] [facility] CULTURE RESULT NO GROWTH 5 DAYS 02/09/2017 10:[address] [facility] BLOOD SPECIMEN OBTAINED FOR BLOOD CULTURE / Unknown 02/04/2017 11:34 AM BR[facility]FFER 02/04/2017 11:46 AM [facility]FFER Jurgen Posadas DNP MICROBIOLOGY - GENERAL ORDER ROLF Final Result [facility] [address] [place] [address], * CULTURE, BACTERIA, BLOOD (02/04/2017 11:34 AM BRASS BUFFER) Pathologist [facility] SPEC DESCRIPTION BLOOD 02/05/20 12:[address] [facility] SPECIAL REQUESTS RAC 02/05/20 12:[address] [facility] CULTURE RESULT NO GROWTH 5 DAYS 02/09/2017 10:[address] [facility] BLOOD SPECIMEN OBTAINED FOR BLOOD CULTURE / Unknown 02/04/2017 11:34 AM BR[facility]FFER 02/04/2017 11:50 AM BRASS BUFFER us Jurgen Posadas DNP MICROBIOLOGY - GENERAL ORDER ROLF Final Result Performing Organization Address City/[facility] Co de Phone Number [facility] [address] [place] [address], [place] [phone] * LACTIC ACID (02/04/2017 11:34 AM BRASS BUFFER) Pathologist [facility] LACTIC ACID VENOUS 2.0 0.4 - 2.0 MMOL/L 02/04/2017 12:[address] [facility] Comment: LD CALLED CRITICAL RESULTS AT [id number] TO AND READ BACK BY ASAD MESA AN ORDER FOR A REPEAT LACTIC ACID TEST IS REQUIRED WITHIN 6 HOURS OF DIAGNOSIS ON A PATIENT WITH SEVERE SEPSIS. IN A PATIENT WITHOUT SEPSIS, A LACTIC ACID VALUE UP TO 2.2 MMOL/L MAY BE NORMAL. 02/04/2017 11:3 4 AM BR[facility] BUFFER us Jurgen Posadas DNP LABORATORY Final Result [facility] [address] [place] [address], * (ABNORMAL) Comprehensive metabolic panel (02/04/2017 11:34 AM [facility]) [facility] GLUCOSE 236(H) 70 - 99 MG/DL 02/04/2017 12:19 PM [facility] BUN 15 7 - 18 MG/DL 02/04/2017 12:19 PM [facility] CREATININE S/P/B 1.22(H) 0.55 - 1.02 MG/DL 02/04/2017 12:19 PM [facility] SODIUM S/P/B 134(L) 136 - 145 MMOL/L 02/04/2017 12:19 PM [facility] POTASSIUM S/P/B 4.4 3.5 - 5.1 MMOL/L 02/04/2017 12:19 PM [facility] CHLORIDE S/P/B 99(L) 100 - 108 MMOL/L 02/04/2017 12:19 PM [facility] CO2 27.7 21 - 32 MMOL/L 02/04/2017 12:19 PM [facility] CALCIUM S/P/B 9.6 8.5 - 10.1 MG/DL 02/04/2017 12:19 PM [facility] BILIRUBIN TOTAL S/P/B 0.3 0.2 - 1.2 MG/DL 02/04/2017 12:19 PM [facility] TOTAL PROTEIN S/P/B 9.8(H) 6.4 - 8.2 G/DL 02/04/2017 12:19 PM [facility] ALBUMIN S/P/B 3.6 3.4 - 5.0 G/DL 02/04/2017 12:19 PM [facility] AST 22 15 - 37 U/L 02/04/2017 12:19 PM [facility] ALT 28 14 - 55 U/L 02/04/2017 12:19 PM [facility] ALKALINE PHOSPHATASE S/P/B 166(H) 50 - 136 U/L 02/04/2017 12:19 PM [facility] ANION GAP 11.7 8 - 20 MMOL/L 02/04/2017 12:19 PM [facility] BUN CREATININE RATIO 12.3 6 - 26 02/04/2017 12:19 PM [facility] A/G RATIO 0.6(L) 1.0 - 2.0 RATIO 02/04/2017 12:19 PM [facility] EGFR NON-AFR. AMER. 53(L) >60 ML/MIN/1.7 3 M2 02/04/2017 12:19 PM [facility] EGFR AFR. AMER. >60 >60 ML/MIN/1.7 3 M2 02/04/2017 12:19 PM [facility] Comment: NOTE: eGFR is not calculated for patients <18 years of age. This is an estimated GFR (CKD EPI) and should not be used for calculating drug doses. 02/04/2017 11:3 4 AM BR[facility]FFER Jurgen Posadas DNP LABORATORY Final Result [facility] [address] [place] [address], * (ABNORMAL) CBC W/DIFF AUTOMATED (02/04/2017 11:34 AM BRASS BUFFER) WBC 9.7 4.8 - 10.8 x10'3/uL 02/04/2017 11:54 AM [facility] RBC 4.19(L) 4.20 - 5.40 x10'6/uL 02/04/2017 11:54 AM [facility] HGB 12.7 12.0 - 16.0 G/DL 02/04/2017 11:54 AM [facility] HCT 36.7(L) 38.0 - 48.0 % 02/04/2017 11:54 AM [facility] MCV 87.6 81.0 - 99.0 FL 02/04/2017 11:54 AM [facility] MCH 30.3 27.0 - 31.0 PG 02/04/2017 11:54 AM [facility] MCHC 34.6 32.0 - 36.0 G/DL 02/04/2017 11:54 AM [facility] RDW 12.6 11.5 - 14.5 % 02/04/2017 11:54 AM [facility] PLT 359 130 - 400 x10'3/uL 02/04/2017 11:54 AM [facility] MPV 11.7 9.3 - 12.2 FL 02/04/2017 11:54 AM [facility] NEUTROPHILS % 66.7(H) 43.0 - 65.0 % 02/04/2017 11:54 AM [facility] LYMPHOCYTES % 27.9 20.0 - 46.0 % 02/04/2017 11:54 AM [facility] MONOCYTES % 3.5(L) 5.0 - 12.0 % 02/04/2017 11:54 AM [facility] EOSINOPHILS 1.0 1.0 - 3.0 % 02/04/2017 11:54 AM [facility] BASOPHILS 0.6 0.0 - 1.0 % 02/04/2017 11:54 AM [facility] IMMATURE GRANS % 0.3 0.0 - 1.0 % 02/04/2017 11:54 AM [facility] 02/04/2017 11:3 4 AM [facility]FFER Jurgen Posadas DNP LABORATORY Final Result [facility] [address] [place] [address], [place] [phone] documented in this encounter Visit Diagnoses Diagnosis Cellulitis- Primary Cellulitis and abscess of unspecified site Foot osteomyelitis, left ([facility]) Unspecified osteomyelitis, ankle and foot Osteomyelitis ([facility]) Unspecified osteomyelitis, site unspecified documented in this encounter Administered Medications Inactive Administered Medications - up to 3 most recent administrations Medication Order MAR Action Action Date Dose Rate Site acetaminophen (TYLENOL) tablet 650 mg 650 mg, Oral, Every 4 hours PRN, Mild pain (Scale 1 - 3), Starting on 02/04/17 at 2243, Until Viky 02/08/17 at 1631, Maximum dose of acetaminophen is 4000 mg from all sources in 24 hours. Given 02/05/2017 12:33 PM BR[facility] BUFFER 650 mg Given 02/04/2017 11:21 PM [facility]FFER 650 mg atorvastatin (LIPITOR) tablet 20 mg 20 mg, Oral, Nightly at bedtime, First dose on 02/04/17 at 2100, Until Discontinued Given 02/07/2017 9:13 PM [facility] BUFFER 20 mg Given 02/06/2017 11:20 PM [facility]FFER 20 mg Given 02/05/2017 9:54 PM [facility] BUFFER 20 mg cefTRIAXone (ROCEPHIN) 2 g in sterile water IV syringe 2 g (rounded from 2,000 mg), Intravenous, at 120 mL/hr, Once, 1 dose, On 02/04/17 at 1300 Given 02/04/2017 12:51 PM BR[facility] BUFFER 2 g 120 mL/hr clindamycin (CLEOCIN) 600 mg in sodium chloride 0.9 % 33.3 mL IV syringe 600 mg, Intravenous, at 66.6 mL/hr, Every 8 hours, First dose on 02/04/17 at 1400, Until Discontinued Given 02/07/2017 11:47 AM [facility]FFER 600 mg 66.6 mL/hr Given 02/07/2017 1:55 AM [facility]FFER 600 mg 66.6 mL/hr Given 02/06/2017 4:00 PM BR[facility] BUFFER 600 mg 66.6 mL/hr doxycycline monohydrate (ADOXA) tablet 100 mg 100 mg, Oral, 2 times daily with meals, First dose on Viky 02/08/17 at 1700, Until Discontinued, Administer with 8 oz of water, preferably with food. enoxaparin (LOVENOX) syringe 40 mg 40 mg, Subcutaneous, Every 24 hours, First dose on 02/04/17 at 1645, Until Discontinued Given 02/07/2017 6:38 PM [facility]FFER 40 mg Given 02/06/2017 7:31 PM [facility]FFER 40 mg Given 02/05/2017 5:03 PM [facility]FFER 40 mg famotidine (PEPCID) injection 20 mg 20 mg, Intravenous, Every 12 hours scheduled (2 times per day), First dose on 02/04/17 at 2100, Until Discontinued, Give if unable to take PO. IV Push over 2 minutes famotidine (PEPCID) tablet 20 mg 20 mg, Oral, Every 12 hours scheduled (2 times per day), First dose on 02/04/17 at 2100, Until Discontinued Given 02/08/2017 8:28 AM [facility]FFER 20 mg Given 02/07/2017 9:13 PM [facility]FFER 20 mg Given 02/07/2017 8:51 AM [facility]FFER 20 mg hydrochlorothiazide (HYDRODIURIL) tablet 25 mg 25 mg, Oral, Nightly, First dose on 02/04/17 at 2100, Until Discontinued Given 02/07/2017 9:13 PM [facility] BUFFER 25 mg Given 02/06/2017 11:20 PM [facility]FFER 25 mg Given 02/05/2017 10:08 PM [facility] BUFFER 25 mg hydrocodone-acetaminophen (NORCO) 5-325 MG tablet 1 tablet 1 tablet, Oral, Once, 1 dose, On 02/04/17 at 1200, Maximum dose of acetaminophen is 4000 mg from all sources in 24 hours. Given 02/04/2017 11:47 AM [facility]FFER 1 tablet insulin aspart protamine-insulin aspart (NOVOLOG 70/30) injection 50 Units 50 Units, Subcutaneous, 2 times daily before meals, First dose on 02/04/17 at 1700, Until Discontinued Given 02/06/2017 8:19 AM [facility]FFER 50 Units Right Arm Given 02/05/2017 5:02 PM [facility]FFER 50 Units Given 02/05/2017 8:24 AM [facility]FFER 50 Units Ri ght Arm insulin aspart protamine-insulin aspart (NOVOLOG 70/30) injection 50 Units 50 Units, Subcutaneous, Daily before supper, First dose (after last modification) on Sun02/07/17 at 1600, Until Discontinued Given 02/07/2017 5:26 PM [facility]FFER 50 Units insulin aspart protamine-insulin aspart (NOVOLOG 70/30) injection 60 Units 60 Units, Subcutaneous, Every morning before breakfast, First dose on Sun02/07/17 at 0700, Until Discontinued Given 02/08/2017 8:29 AM [facility]FFER 60 Unit s Given 02/07/2017 7:52 AM [facility]FFER 60 Units insulin lispro (HUMALOG) injection 0-14 Units 0-14 Units, Subcutaneous, 3 times daily before meals, First dose on Sun02/05/17 at 0700, Until Discontinued, Blood Glucose (SENSITIVE Dosing): [Less than 70:? Initiate Hypoglycemia Standing Orders] [71-140: 0 units] [141-180: 2 units] [181-220: 4 units] [221-260: 6 units] [261-300: 8 units] [301-350: 10 units] [351-400: 12 units] [Greater than 400: 14 units and Call Physician] Given 02/08/2017 12:27 PM BR[facility] BUFFER 8 Units Given 02/08/2017 8:29 AM [facility]FFER 2 Units Given 02/07/2017 10:20 PM BR[facility] BUFFER 2 Units insulin lispro (HUMALOG) injection 0-7 Units 0-7 Units, Subcutaneous, Nightly at bedtime, First dose on 02/04/17 at 2300, Until Discontinued, Blood Glucose (SENSITIVE Dosing): [Less than 70:? Initiate Hypoglycemia Standing Orders] [71-180: ? 0 units] [181-220:? 2 units] [221-260:? 3 units] [261-300:? 4 units] [301-350:? 5 units] [351-400:? 6 units] [Greater than 400:? 7 units and Call Physician] Given 02/07/2017 10:00 PM [facility] BUFFER 2 Unit s Given 02/05/2017 9:57 PM [facility] BUFFER 4 Units Given 02/04/2017 11:25 PM BR[facility] BUFFER 4 Units R ight Arm levofloxacin (LEVAQUIN) tablet 500 mg 500 mg, Oral, Daily, First dose on Viky 02/08/17 at 1430, Until Discontinued lisinopril (PRINIVIL,ZESTRIL) tablet 40 mg 40 mg, Oral, Nightly, First dose on Sun02/04/17 at 2100, Until Discontinued Given 02/07/2017 9:13 PM [facility]FFER 40 mg Given 02/06/2017 11:20 PM [facility]FFER 40 mg Given 02/05/2017 9:56 PM [facility] BUFFER 40 mg magnesium sulfate 1 g in sodium chloride 0.9 % 50 mL IVPB 1 g, Intravenous, at 100 mL/hr, Once, 1 dose, On Sun02/07/17 at 1615 [facility] 02/07/2017 8:34 PM BR[facility] BUFFER 1 g 100 mL/hr metoprolol tartrate (LOPRESSOR) tablet 100 mg 100 mg, Oral, Nightly, First dose on Sun02/04/17 at 2100, Until Discontinued Given 02/07/2017 9:13 PM [facility]FFER 100 mg Given 02/06/2017 11:21 PM [facility]FFER 100 mg Given 02/05/2017 9:56 PM [facility] BUFFER 100 mg sodium chloride 0.9 % infusion 1 dose, Starting on Sun02/04/17 at 1249, Until Sun02/04/17 at 1251, Created by cabinet override [facility] 02/04/2017 12:51 PM BR[facility] BUFFER 10 mLs sodium chloride 0.9 % infusion 1 dose, Starting on Sun02/04/17 at 2214, Until Sun02/05/17 at 0059, Created by cabinet override [facility] 02/05/2017 12:59 AM BR[facility] BUFFER Right Arm vancomycin (VANCOCIN) 1,250 mg in sodium chloride 0.9 % 250 mL IVPB 1,250 mg, Intravenous, at 183.3 mL/hr, Every 12 hours, First dose on Sun02/05/17 at 0130, Until Discontinued [facility] 02/07/2017 3:03 PM BR[facility]FFER 1,250 mg 183.3 mL/hr 02/07/2017 2:37 AM [facility]FFER 1,250 mg 183.3 mL/hr [facility] 02/06/2017 2:20 PM [facility]FFER 1,250 mg 183.3 mL/hr vancomycin (VANCOCIN) 1,750 mg in sodium chloride 0.9 % 500 mL IVPB 1,750 mg, Intravenous, at 267.5 mL/hr, Once, 1 dose, On 12/17/17 at 1330 New Bag 02/04/2017 1:24 PM [facility]FFER 1,750 mg 267.5 mL/hr documented in this encounter Active and Recently Administered Medications Times are shown in BRASS BUFFER. Scheduled Medication Order 02/06/2017 02/07/2017 02/08/2017 atorvastatin (LIPITOR) tablet 20 mg 20 mg, Oral, Nightly at bedtime, First dose on 02/04/17 at 2100, Until Discontinued 232 (Given - Provider: Isabelle Sprague RN) 2112 (Given - Provider: Isabelle Sprague RN) clindamycin (CLEOCIN) 600 mg in sodium chloride 0.9 % 33.3 mL IV syringe (CANCELED) 600 mg, Intravenous, at 66.6 mL/hr, Every 8 hours, First dose on 02/04/17 at 1400, Until Discontinued 0607 (Given - Provider: Spring Paulino RN)1600 (Given - Provider: Mary Meredith RN) 0155 (Given - Provider: Isabelle Sprague RN - Comment: med not available)1147 (Given - Provider: Mary Meredith RN) doxycycline monohydrate (ADOXA) tablet 100 mg 100 mg, Oral, 2 times daily with meals, First dose on Viky 02/08/17 at 1700, Until Discontinued, Administer with 8 oz of water, preferably with food. enoxaparin (LOVENOX) syringe 40 mg(Linked Group 1) 40 mg, Subcutaneous, Every 24 hours, First dose on 02/04/17 at 1645, Until Discontinued 1931 (Given - Provider: Mary Meredith RN) 1838 (Given - Provider: Mary Meredith RN) famotidine (PEPCID) injection 20 mg(Linked Group 2) 20 mg, Intravenous, Every 12 hours scheduled (2 times per day), First dose on 02/04/17 at 2100, Until Discontinued, Give if unable to take PO. IV Push over 2 minutes 0915 (See Alternative - Provider: Mary Meredith RN)2320 (See Alternative - Provider: Isabelle Sprague RN) 0851 (See Alternative - Provider: Mary Meredith RN)2112 (See Alternative - Provider: Isabelle Sprague RN) 0828 (See Alternative - Provider: Shauna Cheek, DEANDRE) famotidine (PEPCID) tablet 20 mg(Linked Group 2) 20 mg, Oral, Every 12 hours scheduled (2 times per day), First dose on Sun02/04/17 at 2100, Until Discontinued 09 (Given - Provider: Mary Meredith RN)2319 (Given - Provider: Isabelle Sprague RN) 08 (Given - Provider: Mary Meredith RN)2112 (Given - Provider: Isabelle Sprague RN) 827 (Given - Provider: Shauna Cheek RN) hydrochlorothiazide (HYDRODIURIL) tablet 25 mg 25 mg, Oral, Nightly, First dose on Sun02/04/17 at 2100, Until Discontinued 2319 (Given - Provider: Isabelle Sprague RN) 2112 (Given - Provider: Isabelle Sprague RN) insulin aspart protamine-insulin aspart (NOVOLOG 70/30) injection 50 Units (CANCELED) 50 Units, Subcutaneous, 2 times daily before meals, First dose on Sun02/04/17 at 1700, Until Discontinued 08 (Given - Provider: Mary Meredith RN)1600 (Due) insulin aspart protamine-insulin aspart (NOVOLOG 70/30) injection 50 Units 50 Units, Subcutaneous, Daily before supper, First dose (after last modification) on Sun02/07/17 at 1600, Until Discontinued 1726 (Given - Provider: Mary Meredith RN) insulin aspart protamine-insulin aspart (NOVOLOG 70/30) injection 60 Units 60 Units, Subcutaneous, Every morning before breakfast, First dose on Sun02/07/17 at 0700, Until Discontinued 075 (Given - Provider: Mary Meredith RN) 08 (Given - Provider: Shauna Cheek, DEANDRE) insulin lispro (HUMALOG) injection 0-14 Units(Linked Group 3) 0-14 Units, Subcutaneous, 3 times daily before meals, First dose on Sun02/05/17 at 0700, Until Discontinued, Blood Glucose (SENSITIVE Dosing): [Less than 70:? Initiate Hypoglycemia Standing Orders] [71-140: 0 units] [141-180: 2 units] [181-220: 4 units] [221-260: 6 units] [261-300: 8 units] [301-350: 10 units] [351-400: 12 units] [Greater than 400: 14 units and Call Physician] 0819 (Given - Provider: Mary Meredith RN)1233 (Given - Provider: Mary Meredith RN)1930 (Given - Provider: Mary Meredith RN - Comment: BGL [id number])2321 (Given - Provider: Isabelle Sprague RN) 0752 (Given - Provider: Mary Meredith RN)1239 (Given - Provider: Mary Meredith RN)1725 (Given - Provider: Mary Meredith RN - Comment: BGL [phone])2220 (Given - Provider: Isabelle Sprague RN) 0829 (Given - Provider: Shauna Cheek RN)1227 (Given - Provider: Shauna Cheek RN) insulin lispro (HUMALOG) injection 0-7 Units(Linked Group 3) 0-7 Units, Subcutaneous, Nightly at bedtime, First dose on 02/04/17 at 2300, Until Discontinued, Blood Glucose (SENSITIVE Dosing): [Less than 70:? Initiate Hypoglycemia Standing Orders] [71-180: ? 0 units] [181-220:? 2 units] [221-260:? 3 units] [261-300:? 4 units] [301-350:? 5 units] [351-400:? 6 units] [Greater than 400:? 7 units and Call Physician] 0138 (Not Given - Provider: Isabelle Sprague RN - Reason: Patient already took)2200 (Given - Provider: Isabelle Sprague RN) levofloxacin (LEVAQUIN) tablet 500 mg 500 mg, Oral, Daily, First dose on Viky 02/08/17 at 1430, Until Discontinued 1430 (Canceled Entry - Provider: Automatic Discharge Provider - Comment: Automatically canceled at discontinue of medication order) lisinopril (PRINIVIL,ZESTRIL) tablet 40 mg 40 mg, Oral, Nightly, First dose on 02/04/17 at 2100, Until Discontinued 2319 (Given - Provider: Isabelle Sprague RN) 2112 (Given - Provider: Isabelle Sprague RN) magnesium sulfate 1 g in sodium chloride 0.9 % 50 mL IVPB (COMPLETED) 1 g, Intravenous, at 100 mL/hr, Once, 1 dose, On Sun02/07/17 at 1615 2033 (New Bag - Provider: Amanda Qureshi RN - Comment: pt had iv that was hurting her and needed a new one. current iv has now been adjusted and isn't huring any more.)2099 (Infusion Stop Time - Provider: Isabelle Sprague RN) metoprolol tartrate (LOPRESSOR) tablet 100 mg 100 mg, Oral, Nightly, First dose on 02/04/17 at 2100, Until Discontinued 2320 (Given - Provider: Isabelle Sprague RN) 2112 (Given - Provider: Isabelle Sprague RN) vancomycin (VANCOCIN) 1,250 mg in sodium chloride 0.9 % 250 mL IVPB (CANCELED) 1,250 mg, Intravenous, at 183.3 mL/hr, Every 12 hours, First dose on Sun02/05/17 at 0130, Until Discontinued 015 (New Bag - Provider: Spring Paulino RN)0325 (Infusion Stop Time - Provider: Spring Paulino RN)1420 (New Bag - Provider: Mary Meredith RN)1600 (Infusion Stop Time - Provider: Mary Meredith RN) 0237 (New Bag - Provider: Isabelle Sprague RN)0405 (Infusion Stop Time - Provider: Isabelle Sprague RN)1503 (New Bag - Provider: Mary Meredith RN)1635 (Infusion Stop Time - Provider: Mary Meredith RN) PRN Medication Order 02/06/2017 02/07/2017 02/08/2017 acetaminophen (TYLENOL) tablet 650 mg 650 mg, Oral, Every 4 hours PRN, Mild pain (Scale 1 - 3), Starting on Sun02/04/17 at 2243, Until Sun02/08/17 at 1631, Maximum dose of acetaminophen is 4000 mg from all sources in 24 hours. ondansetron (ZOFRAN) injection 4 mg 4 mg, Intravenous, Every 6 hours PRN, Nausea, Vomiting, Starting on Sun02/04/17 at 1617, Until Sun02/08/17 at 1631 Linked Groups Order Group 1: enoxaparin (LOVENOX) syringe 40 mgJump to med 40 mg, Subcutaneous, Every 24 hours, First dose on Sun02/04/17 at 1645, Until Discontinued And Moderate Risk for VTE (COMPLETED) Group 2: famotidine (PEPCID) injection 20 mgJump to med 20 mg, Intravenous, Every 12 hours scheduled (2 times per day), First dose on Sun02/04/17 at 2100, Until Discontinued, Give if unable to take PO. IV Push over 2 minutes Or famotidine (PEPCID) tablet 20 mgJump to med 20 mg, Oral, Every 12 hours scheduled (2 times per day), First dose on Sun02/04/17 at 2100, Until Discontinued Group 3: insulin lispro (HUMALOG) injection 0-14 UnitsJump to med 0-14 Units, Subcutaneous, 3 times daily before meals, First dose on Sun02/05/17 at 0700, Until Discontinued, Blood Glucose (SENSITIVE Dosing): [Less than 70:? Initiate Hypoglycemia Standing Orders] [71-140: 0 units] [141-180: 2 units] [181-220: 4 units] [221-260: 6 units] [261-300: 8 units] [301-350: 10 units] [351-400: 12 units] [Greater than 400: 14 units and Call Physician] And insulin lispro (HUMALOG) injection 0-7 UnitsJump to med 0-7 Units, Subcutaneous, Nightly at bedtime, First dose on Sun02/04/17 at 2300, Until Discontinued, Blood Glucose (SENSITIVE Dosing): [Less than 70:? Initiate Hypoglycemia Standing Orders] [71-180: ? 0 units] [181-220:? 2 units] [221-260:? 3 units] [261-300:? 4 units] [301-350:? 5 units] [351- 400:? 6 units] [Greater than 400:? 7 units and Call Physician] documented in this encounter Care Teams Microbiology Manager Relationship Specialty Start Date End Date Jarred Fernández MD PCP - General FAMILY PRACTICE 07/21/15 09/30/20 documented as of this encounter
--- OUTSIDE RECORDS SUMMARY | 2024-03-02 22:33 | XMS_ITS | Encounter Summary ---
Author Organization [facility] Address [address] [place] [address]. [place], [place] [address] [place] [address] Care Team Providers Care Ginger Farmer Name Role Phone Jarred Rod MD Primary Care Provider Unav ailable Crispin Gomez MD Unavailable [phone] Jarred Rod MD Primary Care Provider Unav ailJarred Hayden MD Primary Care Provider Unav ailable Jarred Rod MD Primary Care Provider Unav ailable Jarred Rod MD Primary Care Provider Unav ailable Encounter Details Date Type Department Care Team (Late st Contact Info) Description 04/01/2006 Emergency [facility] Emergency Room [address] [place], [place] [id number] Nina Lawrence MD [address] [place], [place] [address] Social History Tobacco Use Types Packs/Day Years [...] st Contact Info) Description 03/14/2024 11:45 AM VETERINARY ASSISTANT Office Visit [facility] [address] Marvin Mckeon MD [address] [facility] [address] [place] [address] 03/20/2024 11:30 AM VETERINARY ASSISTANT Office Visit [facility] Family Medicine - [place] [address] [place] [phone] Abiodun Segura II, MD [address] [place], [place] [phone] documented as of this encounter Visit Diagnoses Not on filedocumented in this encounter Care Teams Ginger Farmer Relationship Specialty Start Date End Date Jarred Rod MD PCP - General FAMILY PRACTICE 07/21/15 09/30/20 Jarred Rod MD PCP - General 05/05/14 07/20/15 Jarred Rod MD PCP - General 03/03/13 05/04/14 Jarred Rod MD PCP - General 12/02/12 03/02/13 Jarred Rod MD PCP - General 11/07/12 12/01/12 Crispin Gomez MD Three [facility]. DAV[address] [place], [place] [phone] [place] Livestock Judging Coach INTERNAL MEDICINE 07/21/15 documented as of this encounter
--- OUTSIDE RECORDS SUMMARY | 2024-03-02 22:33 | XMS_ITS | Encounter Summary ---
Author Organization [facility] Address [address] [place] [address]. [place] [address] [place] [address] Care Team Providers Care Instrumentation Technologist Name Role Phone Jarred Rod MD Primary Care Provider Unav ailable Crispin Gomez MD Unavailable [phone] Jarred Rod MD Primary Care Provider Unav ailable Encounter Details Date Type Department Care Team (Late st Contact Info) Description 05/05/2014 Emergency [facility] [place] [address] Cj Robles MD [address] [place] [phone] Social History Tobacco Use Types Packs/Day Years [...] st Contact Info) Description 03/14/2024 11:45 AM SOLVENT PLANT OPERATOR Office Visit [facility] [address] Marvin Mckeon MD [address] [facility] [address] [place] [address] 03/20/2024 11:30 AM SOLVENT PLANT OPERATOR Office Visit [facility] Family Medicine - [place] [address] [place] [phone] Abiodun Segura II, MD [address] [place] [address] documented as of this encounter Visit Diagnoses Diagnosis Dizziness and giddiness documented in this encounter Care Teams Instrumentation Technologist Relationship Specialty Start Date End Date Jarred Rod MD PCP - General FAMILY PRACTICE 07/21/15 09/30/20 Jarred Rod MD PCP - General 05/05/14 07/20/15 Crispin Gomez MD Three [facility]. [address] [place] [address] [place] Offshore Diver INTERNAL MEDICINE 07/21/15 documented as of this encounter
--- OUTSIDE RECORDS SUMMARY | 2024-03-02 22:33 | XMS_ITS | Encounter Summary ---
Author Organization [facility] Address [address] [place] [address]. [place] [address] [place] [address] Care Team Providers Care Pathology Technician Name Role Phone Jarred Rod MD Primary Care Provider Unav Crispin Peres MD Unavailable [phone] Encounter Details Date Type Department Care Team (Late st Contact Info) Description 12/20/2015 Abstract [facility] Diagnostic Imaging [address] [facility] [address] Jarred Rod MD Social History Tobacco Use Types Packs/Day [...] st Contact Info) Description 03/14/2024 11:45 AM LAN ENGINEER Office Visit [facility] [address] Marvin Mckeon MD [address] [facility] [address] [place], [place] [phone] 03/20/2024 11:30 AM LAN ENGINEER Office Visit [facility] Family Medicine - [place] 100 [place] [phone] Abiodun Segura II, MD 100 [place] [address] documented as of this encounter Visit Diagnoses Diagnosis Spondylolysis, sacral and sacrococcygeal region documented in this encounter Care Teams Pathology Technician Relationship Specialty Start Date End Date Jarred Rod MD PCP - General FAMILY PRACTICE 07/21/15 09/30/20 Crispin Gomez MD [facility] [address] [place] [address] [facility] Superintendent INTERNAL MEDICINE 07/21/15 documented as of this encounter
--- OUTSIDE RECORDS SUMMARY | 2024-03-02 22:33 | XMS_ITS | Encounter Summary ---
Author Organization [facility] Address [address] [place] [address]. [place], [place] [address] [place] [address] Care Team Providers Care Senior It Security Analyst Name Role Phone Jarred Rod MD Primary Care Provider Crispin Winkler MD Unavailable [phone] Encounter Details Date Type Department Care Team (Late st Contact Info) Description 08/20/2015 Emergency [facility] Emergency Room ONE [place], [place] [phone] Sofy Sierra PA-C [address] [id number] Social History Tobacco Use Types Packs/Day Years [...] st Contact Info) Description 03/14/2024 11:45 AM FUEL RETROFITTING TECHNICIAN Office Visit [facility] [address] Marvin Mckeon MD [address] [facility] [address] [place] [address] 03/20/2024 11:30 AM FUEL RETROFITTING TECHNICIAN Office Visit [facility] Family Medicine - [place] [address] [place] [phone] Abiodun Segura II, MD [address] [place], [place] [phone] documented as of this encounter Procedures Procedure Name Priority Date/Time Associated Diagnosis Comments POCT GLUCOSE - CORREA DOCKED DEVICE Routine 08/20/2015 1:07 PM CDT URINALYSIS WI REFLEX TO CULTURE STAT 08/20/2015 1:07 PM CDT URINE BACTERIA CULTURE Routine 1:07 PM CDT COMPREHENSIVE METABOLIC PANEL STAT 08/20/2015 1:07 PM CDT CBC W/DIFF AUTOMATED STAT 08/20/2015 1:07 PM CDT AMYLASE STAT 08/20/2015 1:07 PM CDT LIPASE STAT 08/20/2015 1:07 PM CDT documented in this encounter Results * (ABNORMAL) POCT glucose (08/20/2015 1:07 PM CDT) GLUCOSE POC 263(H) 70 - 99 mg/dL 08/20/2015 1:25 PM CDT [facility] ORDERS INTERFACE 08/20/2015 1:07 PM CDT 08/20/2015 1:24 PM CDT us Generic Conversion Md RYDER POCT ORDERABLES - DEVIC E Final Result [facility] ORDERS INTERFACE US * CULTURE URINE (08/20/2015 1:07 PM CDT) SPEC DESCRIPTION URINE CLEAN CATCH 08/20/2015 1:20 PM CDT [facility] SPECIAL REQUESTS NO SPECIAL REQUEST 08/20/2015 1:20 PM CDT [facility] CULTURE RESULT >100,000 COL/ML PROTEUS MIRABILIS 08/22/2015 7:31 AM CDT [facility] CULTURE RESULT POLYMICROBIAL GROWTH CONSISTENT WITH NORMAL GENITAL AIDEN. ?? SUSCEPTIBILITIES NOT ROUTINELY PERFORMED. 08/22/2015 7:31 AM CDT [facility] URINE SPECIMEN OBTAINED BY CLEAN CATCH PROCEDURE / Unknown 08/20/2015 1:07 PM CDT 08/20/2015 1:19 PM CDT Narrative Organism Antibiotic Method Susceptibility Proteus mirabilis AMPICILLIN JESSI (VITEK) <=2: Sensitive Proteus mirabilis AMPICILLIN/SULBACTAM JESSI (VITEK) <=2: Sensitive Proteus mirabilis CEFAZOLIN JESSI (VITEK) <=4: Sensitive Proteus mirabilis CEFTAZIDIME JESSI (VITEK) <=1: Sensitive Proteus mirabilis CEFTRIAXONE JESSI (VITEK) <=1: Sensitive Proteus mirabilis GENTAMICIN JESSI (VITEK) <=1: Sensitive Proteus mirabilis TRIMETH-SULFAMETH. JESSI (VITEK) <=20: Sensitive Proteus mirabilis LEVOFLOXACIN JESSI (VITEK) <=0.12: Sensitive Proteus mirabilis PIPRACIL/TAZO JESSI (VITEK) <=4: Sensitive Proteus mirabilis NITROFURANTOIN JESSI (VITEK) 256: Resistant us Generic Conversion Md RYDER MICROBIOLOGY - GENERAL ORDERABLES Final Result [facility] [address] [place] [address], * (ABNORMAL) URINALYSIS WI REFLEX TO CULTURE (08/20/2015 1:07 PM CDT) SOURCE (FLUID) URINE CLEAN CATCH 08/20/2015 12:50 PM T [facility] COLOR (U) YELLOW 08/20/2015 1:19 PM T [facility] TRANSPARENCY CLOUDY 08/20/2015 1:19 PM [facility] SPECIFIC GRAVITY (U) 1.014 1.001 - 1.030 08/20/2015 1:19 PM T [facility] U PH 8.0 5.0 - 9.0 08/20/2015 1:19 PM T [facility] LEUKOCYTES (U) SMALL(A) NEGATIVE 08/20/2015 1:19 PM T [facility] NITRITES NEGATIVE NEGATIVE 08/20/2015 1:19 PM [facility] PROTEIN (U) 100(H) <30 MG/DL 08/20/2015 1:19 PM [facility] URINE GLUCOSE 150(A) NEGATIVE MG/DL 08/20/2015 1:19 PM T [facility] KETONES MG/DL (U) NEGATIVE NEGATIVE MG/DL 08/20/2015 1:19 PM T [facility] UROBILINOGEN NEGATIVE NEGATIVE MG/DL 08/20/2015 1:19 PM T [facility] BILIRUBIN (U) NEGATIVE NEGATIVE MG/DL 08/20/2015 1:19 PM T [facility] BLOOD (U) NEGATIVE NEGATIVE 08/20/2015 1:19 PM T [facility] CULTURE & SENSITIVITY INDICATED? SPECIMEN SETUP FOR CULTURE 08/20/2015 1:19 PM T [facility] SQUAMOUS EPITHELIALS MANY /LPF 08/20/2015 1:19 PM [facility] HYALINE CASTS RARE /LPF 08/20/2015 1:19 PM T [facility] WBC/HPF 21(H) <6 /HPF 08/20/2015 1:19 PM CDT [facility] RBC/HPF <1 <6 /HPF 08/20/2015 1:19 PM CDT [facility] BACTERIA (U) RARE(A) NONE /HPF 08/20/2015 1:19 PM CDT [facility] 08/20/2015 1:07 PM CDT 08/20/2015 1:10 PM CDT us Generic Conversion Md RYDER URINE ORDERABLES Final Result Performing Organization Address [facility]/ZIP Co de Phone Number [facility] [address] [place] [address], * LIPASE (08/20/2015 1:07 PM CDT) LIPASE 21 13 - 60 U/L 08/20/2015 1:35 PM CDT [facility] SERUM OR PLASMA SPECIMEN / Unknown 08/20/2015 1:07 PM CDT 08/20/2015 1:10 PM CDT us Generic Conversion Md RYDER LABORATORY Final R esult Performing Organization Address [facility]/ZIP Co de Phone Number [facility] [address] [place] [address], [place] [phone] * (ABNORMAL) COMPREHENSIVE METABOLIC PANEL (08/20/2015 1:07 PM CDT) GLUCOSE 250(H) 70 - 99 mg/dL 08/20/2015 1:35 PM CDT [facility] BUN 19 8 - 23 mg/dL 08/20/2015 1:35 PM CDT [facility] CREATININE S/P/B 0.80 0.60 - 1.10 mg/dL 08/20/2015 1:35 PM CDT [facility] SODIUM S/P/B 135(L) 136 - 145 mmol/L 08/20/2015 1:35 PM CDT [facility] POTASSIUM S/P/B 4.3 3.5 - 5.1 mmol/L 08/20/2015 1:35 PM CDT [facility] CHLORIDE S/P/B 98 98 - 107 mmol/L 08/20/2015 1:35 PM CDT [facility] CO2 25 22 - 29 mmol/L 08/20/2015 1:35 PM CDT [facility] BILIRUBIN TOTAL S/P/B 0.5 0.2 - 1.2 mg/dL 08/20/2015 1:35 PM T [facility] CALCIUM S/P/B 9.1 8.6 - 10.2 mg/dL 08/20/2015 1:35 PM CDT [facility] ALKALINE PHOSPHATASE S/P/B 111(H) 35 - 104 U/L 08/20/2015 1:35 PM CDT [facility] AST 12 0 - 32 U/L 08/20/2015 1:35 PM T [facility] TOTAL PROTEIN S/P/B 8.6(H) 6.4 - 8.3 g/dL 08/20/2015 1:35 PM CDT [facility] ALBUMIN S/P/B 4.2 3.5 - 5.2 g/dL 08/20/2015 1:35 PM CDT [facility] ALT 12 0 - 33 U/L 08/20/2015 1:35 PM CDT [facility] GLOBULIN 4.4(H) 2.3 - 3.6 g/dL 08/20/2015 1:35 PM T [facility] A/G RATIO 1.0 1.0 - 2.0 08/20/2015 1:35 PM CDT [facility] ANION GAP 16 8 - 20 08/20/2015 1:35 PM CDT [facility] EGFR NON-AFR. AMER. >60 >60 mL/min/1.7 '2 08/20/2015 1:35 PM CDT [facility] EGFR AFR. AMER. >60 >60 mL/min/1.7 [facility] 08/20/2015 1:35 PM CDT [facility] Comment: NOTE: eGFR is not calculated for patients <18 years of age. This is an estimated GFR (CKD EPI) and should not be used for calculating drug doses. 08/20/2015 1:07 PM CDT 08/20/2015 1:10 PM CDT us Generic Conversion Md RYDER LABORATORY Final R esult [facility] [address] [place] [address], * (ABNORMAL) CBC W/DIFF AUTOMATED (08/20/2015 1:07 PM CDT) WBC 10.4 4.8 - 10.8 X10'3/uL 08/20/2015 1:13 PM CDT [facility] RBC 3.94(L) 4.20 - 5.40 X10'6/uL 08/20/2015 1:13 PM CDT [facility] HGB 12.0 12.0 - 16.0 g/dL 08/20/2015 1:13 PM CDT [facility] HCT 34.6(L) 38.0 - 48.0 % 08/20/2015 1:13 PM CDT [facility] MCV 87.8 81.0 - 99.0 fL 08/20/2015 1:13 PM CDT [facility] MCH 30.5 27.0 - 31.0 pg 08/20/2015 1:13 PM CDT [facility] MCHC 34.7 32.0 - 36.0 g/dL 08/20/2015 1:13 PM CDT [facility] RDW 12.5 11.5 - 14.5 % 08/20/2015 1:13 PM CDT [facility] PLT 257 130 - 400 X10'3/uL 08/20/2015 1:13 PM CDT [facility] MPV 11.3 9.3 - 12.2 fL 08/20/2015 1:13 PM CDT [facility] DIFFERENTIAL TYPE AUTOMATED 08/20/2015 1:13 PM CDT [facility] NEUTROPHILS % 61.4 43.0 - 65.0 % 08/20/2015 1:13 PM CDT [facility] LYMPHOCYTES % 32.2 20.0 - 46.0 % 08/20/2015 1:13 PM CDT [facility] MONOCYTES % 4.9(L) 5.0 - 12.0 % 08/20/2015 1:13 PM CDT [facility] EOSINOPHILS 0.5(L) 1.0 - 3.0 % 08/20/2015 1:13 PM CDT [facility] BASOPHILS 0.6 0.0 - 1.0 % 08/20/2015 1:13 PM CDT [facility] IMMATURE GRANS % 0.4 0.0 - 1.0 % 08/20/2015 1:13 PM CDT [facility] 08/20/2015 1:07 PM CDT 08/20/2015 1:10 PM CDT us Generic Conversion Md RYDER LABORATORY Final R esult [facility] [address] [place] [address], [place] [phone] * AMYLASE (08/20/2015 1:07 PM CDT) AMYLASE S/P/B 45 28 - 100 U/L 08/20/2015 1:35 PM CDT [facility] SERUM OR PLASMA SPECIMEN / Unknown 08/20/2015 1:07 PM CDT 08/20/2015 1:10 PM CDT us Generic Conversion Md RYDER LABORATORY Final R esult [facility] [address] [place] [address], documented in this encounter Visit Diagnoses Diagnosis Urinary tract infection Urinary tract infection, site not specified documented in this encounter Care Teams Senior It Security Analyst Relationship Specialty Start Date End Date Jarred Rod MD PCP - General FAMILY PRACTICE 07/21/15 09/30/20 Crispin Gomez MD [address] [address] [employer] Machine Tool Dresser INTERNAL MEDICINE 07/21/15 documented as of this encounter
--- OUTSIDE RECORDS SUMMARY | 2024-03-02 22:33 | XMS_ITS | Encounter Summary ---
Author Organization [facility] Address [address] [place] [address]. [place] [address] [place] [address] Care Team Providers Care Junior Programmer Analyst Name Role Phone Jarred Rod MD Primary Care Provider Unav ailable Crispin Gomez MD Unavailable [phone] Jarred Rod MD Primary Care Provider Unav ailJarred Hayden MD Primary Care Provider Unav ailable Jarred Rod MD Primary Care Provider Unav ailable Jarred Rod MD Primary Care Provider Unav ailable Encounter Details Date Type Department Care Team (Late st Contact Info) Description 11/07/2005 Abstract [facility] Diagnostic Imaging [address] [place], [place] [phone] Juan Luevano MD Social History Tobacco Use Types Packs/Day [...] st Contact Info) Description 03/14/2024 11:45 AM ASSISTANT CENTER MANAGER Office Visit [facility] [address] Marvin Mckeon MD [address] [facility] [address] [facility] [place] [address] 03/20/2024 11:30 AM ASSISTANT CENTER MANAGER Office Visit [facility] Family Medicine - [place] [address] [place] [phone] Abiodun Segura II, MD [address] [place] [address] documented as of this encounter Visit Diagnoses Not on filedocumented in this encounter Care Teams Junior Programmer Analyst Relationship Specialty Start Date End Date Jarred Rod MD PCP - General FAMILY PRACTICE 07/21/15 09/30/20 Jarred Rod MD PCP - General 05/05/14 07/20/15 Jarred Rod MD PCP - General 03/03/13 05/04/14 Jarred Rod MD PCP - General 12/02/12 03/02/13 Jarred Rod MD PCP - General 11/07/12 12/01/12 Crispin Gomez MD Three [facility]. DAVID [address] [place] [address] [place] Washing Tub Operator INTERNAL MEDICINE 07/21/15 documented as of this encounter
--- OUTSIDE RECORDS SUMMARY | 2024-03-02 22:33 | XMS_ITS | Encounter Summary ---
Author Organization [facility] Address [address] [place] [address]. [place] [address] [place] [address] Care Team Providers Care Grocery Stock Clerk Name Role Phone Jarred Rod MD Primary Care Provider Unav Crispin Peres MD Unavailable [phone] Encounter Details Date Type Department Care Team (Late st Contact Info) Description 01/02/2016 Emergency [facility] [place] [address] Kenya Leavitt MD Social History Tobacco Use Types Packs/Day [...] Contact Info) Description 03/14/2024 11:45 AM SERVICE AIDE Office Visit [facility] [address] Marvin Mckeon MD [facility] [address] [place] [address] 03/20/2024 11:30 AM SERVICE AIDE Office Visit [facility] Family Medicine - [place] [address] [place] [phone] Abiodun Segura II, MD [address] [place], [place] [phone] documented as of this encounter Procedures Procedure Name Priority Date/Time Associated Diagnosis Comments URINALYSIS WI REFLEX TO CULTURE STAT 01/02/2016 9:53 AM SERVICE AIDE CKMB(MB FRACTION ONLY) TIMED 6 9:53 AM SERVICE AIDE TROPONIN, QUANT TIMED 01/02/2016 9:53 AM SERVICE AIDE CK (CPK) TIMED 01/02/2016 9:53 AM SERVICE AIDE LACTIC ACID STAT 01/02/2016 8:03 AM SERVICE AIDE PARTIAL THROMBOPLASTIN TIME,PTT STAT 01/02/2016 7:48 AM SERVICE AIDE PROTHROMBIN TIME, VENOUS STAT 01/02/2016 7:48 AM SERVICE AIDE COMPREHENSIVE METABOLIC PANEL STAT 01/02/2016 7:48 AM SERVICE AIDE CKMB(MB FRACTION ONLY) STAT 6 7:48 AM SERVICE AIDE CBC W/DIFF AUTOMATED STAT 01/02/2016 7:48 AM SERVICE AIDE TROPONIN, QUANT STAT 01/02/2016 7:48 AM SERVICE AIDE LIPASE STAT 01/02/2016 7:48 AM SERVICE AIDE CK (CPK) STAT 01/02/2016 7:48 AM SERVICE AIDE documented in this encounter Results * (ABNORMAL) URINALYSIS WI REFLEX TO CULTURE (01/02/2016 9:53 AM SERVICE AIDE) SOURCE (FLUID) URINE CLEAN CATCH 01/02/2016 8:40 AM [facility] COLOR (U) YELLOW 01/02/2016 12:01 PM [facility] TRANSPARENCY CLOUDY 01/02/2016 12:01 PM [facility] SPECIFIC GRAVITY (U) 1.024 1.001 - 1.030 01/02/2016 12:01 PM [facility] U PH 7.0 5.0 - 9.0 01/02/2016 12:01 PM [facility] LEUKOCYTES (U) NEGATIVE NEGATIVE 01/02/2016 12:01 PM [facility] NITRITES NEGATIVE NEGATIVE 01/02/2016 12:01 PM [facility] PROTEIN (U) 100(H) <30 MG/DL 01/02/2016 12:01 PM [facility] URINE GLUCOSE 150(A) NEGATIVE MG/DL 01/02/2016 12:01 PM [facility] KETONES MG/DL (U) NEGATIVE NEGATIVE MG/DL 01/02/2016 12:01 PM [facility] UROBILINOGEN NEGATIVE NEGATIVE MG/DL 01/02/2016 12:01 PM [facility] BILIRUBIN (U) NEGATIVE NEGATIVE MG/DL 01/02/2016 12:01 PM [facility] BLOOD (U) NEGATIVE NEGATIVE 01/02/2016 12:01 PM [facility] CULTURE & SENSITIVITY INDICATED? CULTURE IS NOT INDICATED 01/02/2016 12:01 PM [facility] SQUAMOUS EPITHELIALS MANY /LPF 01/02/2016 12:01 PM [facility] WBC/HPF 1 <6 /HPF 01/02/2016 12:01 PM [facility] RBC/HPF 2 <6 /HPF 01/02/2016 12:01 PM SERVICE AIDE [facility] 01/02/2016 9:53 AM SERVICE AIDE 01/02/2016 11:05 AM SERVICE AIDE us Generic Conversion Md RYDER URINE ORDERABLES Final Result [facility] [address] [place] [address], * CK (CPK) (01/02/2016 9:53 AM SERVICE AIDE) CPK 166 26 - 192 U/L 01/02/2016 11:29 AM SERVICE AIDE [facility] SERUM OR PLASMA SPECIMEN / Unknown 01/02/2016 9:53 AM SERVICE AIDE 01/02/2016 11:05 AM SERVICE AIDE us Generic Conversion Md [facility] Final R esult Performing Organization Address [facility]/ZIP Co de Phone Number [facility] [address] [place] [address], * TROPONIN, QUANT (01/02/2016 9:53 AM SERVICE AIDE) TROPONIN I <0.30 <0.30 ng/mL 01/02/2016 12:07 PM SERVICE AIDE [facility] SERUM OR PLASMA SPECIMEN / Unknown 01/02/2016 9:53 AM SERVICE AIDE 01/02/2016 11:05 AM SERVICE AIDE us Generic Conversion Md [facility] Final R esult Performing Organization Address City/[facility]/ZIP Co de Phone Number [facility] [address] [place] [address], * CKMB(MB FRACTION ONLY) (01/02/2016 9:53 AM SERVICE AIDE) CK-MB 2.72 <4.30 ng/mL 01/02/2016 11:30 AM SERVICE AIDE [facility] SERUM OR PLASMA SPECIMEN / Unknown 01/02/2016 9:53 AM SERVICE AIDE 01/02/2016 11:05 AM SERVICE AIDE Generic Conversion Md [facility] Final R esult Performing Organization Address City/[facility]/ZIP Co de Phone Number [facility] [address] [place] [address], * LACTIC ACID (01/02/2016 8:03 AM SERVICE AIDE) LACTIC ACID VENOUS 1.95 0.5 - 2.2 mmol/L 01/02/2016 9:41 AM SERVICE AIDE [facility] Comment: NOTE: Acetaminophen, N Acetyl p benzoquinone imine (NAPQI), N acetylcysteine (NAC), Metamizole, 4 Aminoantipyrine (4 AAP) and 4 Methylamino antipyrine (4 MAP) at high concentrations can cause falsely low results on Lactate, Uric Acid, Cholesterol, Triglyceride, HDL, and Direct LDL. PLASMA SPECIMEN / Unknown 01/02/2016 8:03 AM SERVICE AIDE 01/02/2016 9:26 AM SERVICE AIDE Generic Conversion Md [facility] Final R esnas Performing Organization Address City/[facility]/ZIP Co de Phone Number [facility] [address] [place] [address], * (ABNORMAL) LIPASE (01/02/2016 7:48 AM SERVICE AIDE) LIPASE 12(L) 13 - 60 U/L 01/02/2016 9:15 AM SERVICE AIDE [facility] SERUM OR PLASMA SPECIMEN / Unknown 01/02/2016 7:48 AM SERVICE AIDE 01/02/2016 8:53 AM SERVICE AIDE Generic Conversion Md [facility] Final R esult Performing Organization Address [facility]/ZIP Co de Phone Number [facility] [address] [place] [address], * TROPONIN, QUANT (01/02/2016 7:48 AM SERVICE AIDE) TROPONIN I <0.30 <0.30 ng/mL 01/02/2016 9:16 AM SERVICE AIDE [facility] SERUM OR PLASMA SPECIMEN / Unknown 01/02/2016 7:48 AM SERVICE AIDE 01/02/2016 8:53 AM SERVICE AIDE us Generic Conversion Md [facility] Final R charley Performing Organization Address [facility] Co de Phone Number [facility] [address] [place] [address], * CKMB(MB FRACTION ONLY) (01/02/2016 7:48 AM SERVICE AIDE) CK-MB 2.75 <4.30 ng/mL 01/02/2016 9:16 AM SERVICE AIDE [facility] SERUM OR PLASMA SPECIMEN / Unknown 01/02/2016 7:48 AM SERVICE AIDE 01/02/2016 8:53 AM SERVICE AIDE us Generic Conversion Md [facility] Final R charley Performing Organization Address City/[facility]/ZIP Co de Phone Number [facility] [address] [place] [address], * PARTIAL THROMBOPLASTIN TIME,PTT (01/02/2016 7:48 AM SERVICE AIDE) PTT 27.1 25.5 - 37.6 SEC 01/02/2016 9:07 AM SERVICE AIDE [facility] PLASMA SPECIMEN / Unknown 01/02/2016 7:48 AM SERVICE AIDE 01/02/2016 8:52 AM SERVICE AIDE us Generic Conversion Md [facility] Final R esnas Performing Organization Address City/[facility]/ZIP Co de Phone Number [facility] [address] [place] [address], * PROTIME/INR, VENOUS (01/02/2016 7:48 AM SERVICE AIDE) PROTIME 11.1 9.6 - 12.2 SEC 01/02/2016 9:07 AM SERVICE AIDE [facility] INR 1.0 01/02/2016 9:07 AM SERVICE AIDE [facility] Comment: Recommended INR Therapeutic Goals: ??2.0-3.0 Routine Therapy ??2.5-3.5 Mechanical Prosthetic Valves (High Risk) ??3.0-4.0 Acute GA (to prevent Systemic Embolism) The INR is used only for patients on stable oral anticoagulant therapy. It makes no significant contribution to the diagnosis or treatment of patients whose Protime is prolonged for other reasons. 01/02/2016 7:48 AM SERVICE AIDE 01/02/2016 8:52 AM SERVICE AIDE us Generic Conversion Md [facility] Final R esnas Performing Organization Address [facility] Co de Phone Number [facility] [address] [place] [address], [place] [phone] * CK (CPK) (01/02/2016 7:48 AM SERVICE AIDE) CPK 172 26 - 192 U/L 01/02/2016 9:14 AM SERVICE AIDE [facility] SERUM OR PLASMA SPECIMEN / Unknown 01/02/2016 7:48 AM SERVICE AIDE 01/02/2016 8:52 AM SERVICE AIDE us Generic Conversion Md [facility] Final R esnas Performing Organization Address City/[facility]/ZIP Co de Phone Number [facility] [address] [place] [address], [place] [phone] * (ABNORMAL) COMPREHENSIVE METABOLIC PANEL (01/02/2016 7:48 AM [facility] Signature GLUCOSE 239(H) 70 - 99 mg/dL 01/02/2016 9:14 AM [facility] BUN 17 8 - 23 mg/dL 01/02/2016 9:14 AM [facility] CREATININE S/P/B 0.64 0.60 - 1.10 mg/dL 01/02/2016 9:14 AM [facility] SODIUM S/P/B 133(L) 136 - 145 mmol/L 01/02/2016 9:14 AM [facility] POTASSIUM S/P/B 4.1 3.5 - 5.1 mmol/L 01/02/2016 9:14 AM [facility] CHLORIDE S/P/B 94(L) 98 - 107 mmol/L 01/02/2016 9:14 AM [facility] CO2 26 22 - 29 mmol/L 01/02/2016 9:14 AM [facility] BILIRUBIN TOTAL S/P/B 0.6 0.2 - 1.2 mg/dL 01/02/2016 9:14 AM [facility] CALCIUM S/P/B 9.5 8.6 - 10.2 mg/dL 01/02/2016 9:14 AM [facility] ALKALINE PHOSPHATASE S/P/B 113(H) 35 - 104 U/L 01/02/2016 9:14 AM [facility] AST 14 0 - 32 U/L 01/02/2016 9:14 AM [facility] TOTAL PROTEIN S/P/B 8.4(H) 6.4 - 8.3 g/dL 01/02/2016 9:14 AM [facility] ALBUMIN S/P/B 4.2 3.5 - 5.2 g/dL 01/02/2016 9:14 AM [facility] ALT 16 0 - 33 U/L 01/02/2016 9:14 AM [facility] GLOBULIN 4.2(H) 2.3 - 3.6 g/dL 01/02/2016 9:14 AM [facility] A/G RATIO 1.0 1.0 - 2.0 01/02/2016 9:14 AM [facility] ANION GAP 17 8 - 20 01/02/2016 9:14 AM [facility] EGFR NON-AFR. AMER. >60 >60 mL/min/1.7 3m'2 01/02/2016 9:14 AM [facility] EGFR AFR. AMER. >60 >60 mL/min/1.7 3m'2 01/02/2016 9:14 AM [facility] Comment: NOTE: eGFR is not calculated for patients <18 years of age. This is an estimated GFR (CKD EPI) and should not be used for calculating drug doses. 01/02/2016 7:48 AM SERVICE AIDE 01/02/2016 8:52 AM SERVICE AIDE us Generic Conversion Md [facility] Final R esult [facility] [address] [place] [address], * (ABNORMAL) CBC W/DIFF AUTOMATED (01/02/2016 7:48 AM SERVICE AIDE) WBC 11.0(H) 4.8 - 10.8 X10'3/uL 01/02/2016 8:57 AM [facility] RBC 4.03(L) 4.20 - 5.40 X10'6/uL 01/02/2016 8:57 AM [facility] HGB 12.1 12.0 - 16.0 g/dL 01/02/2016 8:57 AM [facility] HCT 34.5(L) 38.0 - 48.0 % 01/02/2016 8:57 AM [facility] MCV 85.6 81.0 - 99.0 fL 01/02/2016 8:57 AM [facility] MCH 30.0 27.0 - 31.0 pg 01/02/2016 8:57 AM [facility] MCHC 35.1 32.0 - 36.0 g/dL 01/02/2016 8:57 AM [facility] RDW 12.0 11.5 - 14.5 % 01/02/2016 8:57 AM [facility] PLT 287 130 - 400 X10'3/uL 01/02/2016 8:57 AM [facility] MPV 11.1 9.3 - 12.2 fL 01/02/2016 8:57 AM [facility] DIFFERENTIAL TYPE AUTOMATED 01/02/2016 8:57 AM [facility] NEUTROPHILS % 75.0(H) 43.0 - 65.0 % 01/02/2016 8:57 AM [facility] LYMPHOCYTES % 21.1 20.0 - 46.0 % 01/02/2016 8:57 AM [facility] MONOCYTES % 2.9(L) 5.0 - 12.0 % 01/02/2016 8:57 AM [facility] EOSINOPHILS 0.2(L) 1.0 - 3.0 % 01/02/2016 8:57 AM [facility] BASOPHILS 0.5 0.0 - 1.0 % 01/02/2016 8:57 AM [facility] IMMATURE GRANS % 0.3 0.0 - 1.0 % 01/02/2016 8:57 AM SERVICE AIDE [facility] 01/02/2016 7:48 AM SERVICE AIDE 01/02/2016 8:52 AM SERVICE AIDE us Generic Conversion Md [facility] Final R esult [facility] [address] [place] [address], documented in this encounter Visit Diagnoses Diagnosis Nausea with vomiting documented in this encounter Care Teams Grocery Stock Clerk Relationship Specialty Start Date End Date Jarred Rod MD PCP - General FAMILY PRACTICE 07/21/15 09/30/20 Crispin Gomez MD [address] [address] [place] Validation Engineer INTERNAL MEDICINE 07/21/15 documented as of this encounter
--- OUTSIDE RECORDS SUMMARY | 2024-03-02 22:33 | XMS_ITS | Encounter Summary ---
Author Organization [facility] Address [address] [place] [address]. [place] [address] [place] [address] Care Team Providers Care Vaccinator Name Role Phone Jarred Rod MD Primary Care Provider UnaCrispin Myers MD Unavailable [phone] Encounter Details Date Type Department Care Team (Late st Contact Info) Description 01/02/2016 Orders Only [facility] [address] [place] [address] , Giacomo Rudolph MD Social [...] Contact Info) Description 03/14/2024 11:45 AM METAL RIVET MACHINE OPERATOR Office Visit [facility] [address] Marvin Mckeon MD [facility] [address] [place], [place] [phone] 03/20/2024 11:30 AM METAL RIVET MACHINE OPERATOR Office Visit [facility] Family Medicine - [place] [address] [place] [phone] Abiodun Segura II, MD [address] [place] [address] documented as of this encounter Procedures Procedure Name Priority Date/Time Associated Diagnosis Comments CARDIOLOGY GENERIC 01/02/2016 7: 22 AM METAL RIVET MACHINE OPERATOR documented in this encounter Results * CARDIOLOGY GENERIC (01/02/2016 7:22 AM METAL RIVET MACHINE OPERATOR) 01/02/2016 7:22 AM METAL RIVET MACHINE OPERATOR Narrative [facility] - 01/02/2016 12:00 AM METAL RIVET MACHINE OPERATOR ? LENA YOUNGBLOOD MD: KENYA LEAVITT MD ?? Acct: [id number] ?? Admit/Service Date: 01/02/16 Discharge Date: ?? : 1970 Pt Type: REG ER ?? Sex: F Ord [facility] ?[address] ?Test Date: ?2016-01-02 ?? Pat Name: ? LENA YOUNGBLOOD ?Department: CARD ?? 41 ? Room: ? EWA ?? Gender: ? Female ? Cementing Bulk Material Operator: ?? kg ?? : ?1970 ? Requested By: KENYA LEAVITT ?? Order Number: [id number] ?Reading MD: ?? Alexei Rodríguez ?Measurements ?? Intervals ?[place] ? Rate: ? 77 ? P: ?39 ?? MT: ? 190 ?QRS: ?19 ?? QRSD: ? 82 ? T: ?13 ?? QT: ? 398 ? QTc: ?452 ?Interpretive Statements ?? SINUS RHYTHM ?? NONSPECIFIC T-WAVE ABNORMALITY ?? Compared to ECG 08/20/2015 13:01:29 ?? No significant changes ?? DR. Kenya Leavitt ?? No ischemic changes ?? CRITICAL ALERT ISSUED ON 01-02-2016 7:25:06 ?? L RIVET MACHINE OPERATOR ? Procedure Note Alexei Rodríguez MD - 01/02/2016 LENA YOUNGBLOOD Ordering MD: KENYA LEAVITT MD Acct: [id number] Admit/Service Date: 01/02/16 Discharge Date: : 1970 Pt Type: REG ER Sex: F Ord Site: [address] Test Date: 2016-01-02 Pat Name: LENA YOUNGBLOOD Department: CARD 41 Room: [facility] Gender: Female Cementing Bulk Material Operator: : 1970 Requested By: KENYA FITZPATRICK Order Number: [id number] Reading MD: Alexei Rodríguez Measurements Intervals [place] Rate: 77 P: 39 MT: 190 QRS: 19 QRSD: 82 T: 13 QT: 398 QTc: 452 Interpretive Statements SINUS RHYTHM NONSPECIFIC T-WAVE ABNORMALITY Compared to ECG 08/20/2015 13:01:[address] Kenya Leavitt No ischemic changes CRITICAL ALERT ISSUED ON 01-02-2016 7:25:06 L RIVET MACHINE OPERATOR us Generic Conversion Md [facility] Final Result [facility] documented in this encounter Visit Diagnoses Not on filedocumented in this encounter Care Teams Vaccinator Relationship Specialty Start Date End Date Jarred Rod MD PCP - General FAMILY PRACTICE 07/21/15 09/30/20 Crispin Gomez MD [address] [address] [place] Dry Color Mixer INTERNAL MEDICINE 07/21/15 documented as of this encounter
--- OUTSIDE RECORDS SUMMARY | 2024-03-02 22:33 | XMS_ITS | Encounter Summary ---
Author Organization [facility] Address [address] [place] [address]. [place], [place] [address] [place] [address] Care Team Providers Care Head Sugar Reprocess Operator Name Role Phone Jarred Rod MD Primary Care Provider Unav ailable Crispin Gomez MD Unavailable [phone] Shira Shi PA-C Primary Care Provider [phone] Jarred Rod MD Primary Care Provider Unav ailable Colton SILVEIRA MD, Abiodun L Primary Care Provider Jarred Rod MD Primary Care Provider Unav ailable Encounter Details Date Type Department Care Team (Latest Contact Info) Description 07/10/2016 Scan HEALTH INFO SRVCS Scanned, Documents Social History Tobacco Use Types Packs/Day Years Used Date Smoking Tobacco: Never Assessed PHQ-2 Answer Date Recorded PHQ-2 Score - If the patient scores above 3, please move on to questions 3-9 0 10/08/2020 Comments Unknown Sex and Gender Information Value [...] COVID-19? No / Unsure 01/24/2021 11:10 AM TRANSLATOR DEAF documented as of this encounter Functional Status [...] st Contact Info) Description 03/14/2024 11:45 AM TRANSLATOR DEAF Office Visit [facility] [phone] Marvin Mckeon MD [facility] [address] [place] [phone] 03/20/2024 11:30 AM TRANSLATOR DEAF Office Visit [facility] Family Medicine - [address] [phone] Abiodun Segura II, MD [address] [place] [phone] documented as of this encounter Visit Diagnoses Not on filedocumented in this encounter Additional Health Concerns Infection Onset Date Last Indicated Resolved Time COVID-19 Rule Out 09/22/2019 09/22/2019 09/24/2019 11:13 PM CDT COVID-19 Rule Out 11/02/2019 11/02/2019 11/03/2019 3:22 PM CDT COVID-19 Rule Out 12/13/2019 12/13/2019 12/14/2019 3:06 PM CDT COVID-19 Confirmed 12/13/2019 12/13/2019 0 12:34 AM TRANSLATOR DEAF documented as of this encounter Care Teams Head Sugar Reprocess Operator Relationship Specialty Start Date End Date Jarred Rod MD PCP - General FAMILY PRACTICE 07/21/15 09/30/20 Shira Shi PA-C [address] [place] [address] PCP - General PHYSICIAN RESEARCH PSYCHOLOGIST 10/01/20 11/17/20 Jarred Rod MD [address] [place] [address] PCP - General FAMILY PRACTICE 11/18/20 12/05/20 Abiodun Segura II, MD [address] [place] [address] PCP - General FAMILY PRACTICE 12/06/20 01/16/21 Jarred Rod MD [address] [place] [address] PCP - General FAMILY PRACTICE 01/17/21 03/08/21 Crispin Gomez MD [facility] [address] [place] [address] [place] Vegetable Trimmer INTERNAL MEDICINE 07/21/15 documented as of this encounter
--- OUTSIDE RECORDS SUMMARY | 2024-03-02 22:33 | XMS_ITS | Encounter Summary ---
Author Organization [facility] Address [address] [place] [address]. [place], [place] [address] [place] [address] Care Team Providers Care Wick Tender Name Role Phone Jarred Rod MD Primary Care Provider Unav ailable Crispin Gomez MD Unavailable [phone] Shira Shi PA-C Primary Care Provider [phone] Jarred Rod MD Primary Care Provider Unav ailable Colton SILVEIRA MD, Abiodun L Primary Care Provider Jarred Rod MD Primary Care Provider Unav ailable Encounter Details Date Type Department Care Team (Latest Contact Info) Description 06/12/2016 Scan HEALTH INFO SRVCS Scanned, Documents Social [...] COVID-19? No / Unsure 01/24/2021 11:10 AM SUPERINTENDENT GEOPHYSICAL LABORATORY documented as of this encounter Functional Status [...] st Contact Info) Description 03/14/2024 11:45 AM SUPERINTENDENT GEOPHYSICAL LABORATORY Office Visit [facility] [phone] Marvin Mckeon MD [facility] [address] [place] [phone] 03/20/2024 11:30 AM SUPERINTENDENT GEOPHYSICAL LABORATORY Office Visit [facility] Family Medicine - [address] [phone] Abiodun Segura II, MD [address] [place] [phone] documented as of this encounter Visit Diagnoses Not on filedocumented in this encounter Additional Health Concerns Infection Onset Date Last Indicated Resolved Time COVID-19 Rule Out 09/22/2019 09/22/2019 09/24/2019 11:13 PM CDT COVID-19 Rule Out 11/02/2019 11/02/2019 11/03/2019 3:22 PM CDT COVID-19 Rule Out 12/13/2019 12/13/2019 12/14/2019 3:06 PM CDT COVID-19 Confirmed 12/13/2019 12/13/2019 0 12:34 AM SUPERINTENDENT GEOPHYSICAL LABORATORY documented as of this encounter Care Teams Wick Tender Relationship Specialty Start Date End Date Jarred Rod MD PCP - General FAMILY PRACTICE 07/21/15 09/30/20 Shira Shi PA-C [address] [place] [address] PCP - General PHYSICIAN HYDROELECTRIC PLANT ELECTRICIAN 10/01/20 11/17/20 Jarred Rod MD [address] [place] [address] PCP - General FAMILY PRACTICE 11/18/20 12/05/20 Abiodun Segura II, MD [address] [place] [address] PCP - General FAMILY PRACTICE 12/06/20 01/16/21 Jarred Rod MD [address] [place] [address] PCP - General FAMILY PRACTICE 01/17/21 03/08/21 Crispin Gomez MD [facility] [address] [place] [address] [place] Paramedic Instructor INTERNAL MEDICINE 07/21/15 documented as of this encounter
--- OUTSIDE RECORDS SUMMARY | 2024-03-02 22:33 | XMS_ITS | Encounter Summary ---
Author Organization [facility] Address [address] [place] [address]. [place] [address] [place] [address] Care Team Providers Care Aircraft Pneudraulic Systems Mechanic Name Role Phone Jarred Rod MD Primary Care Provider UnaCrispin Myers MD Unavailable [phone] Encounter Details Date Type Department Care Team (Late st Contact Info) Description 12/24/2015 Abstract [facility] [place] [address] Jarred Rod MD Social History [...] st Contact Info) Description 03/14/2024 11:45 AM COOKER PIE FILLING Office Visit [facility] [address] Marvin Mckeon MD Three [facility] [address] [place], [place] [phone] 03/20/2024 11:30 AM COOKER PIE FILLING Office Visit [facility] Family Medicine - [place] 100 [place] [phone] Abiodun Segura II, MD 100 [place] [address] documented as of this encounter Visit Diagnoses Diagnosis Other specified disorders of kidney and ureter documented in this encounter Care Teams Aircraft Pneudraulic Systems Mechanic Relationship Specialty Start Date End Date Jarred Rod MD PCP - General FAMILY PRACTICE 07/21/15 09/30/20 Crispin Gomez MD [address] [address] [place]in Social Service Worker INTERNAL MEDICINE 07/21/15 documented as of this encounter
--- OUTSIDE RECORDS SUMMARY | 2024-03-02 22:33 | XMS_ITS | Encounter Summary ---
Author Organization [facility] Address [address] [place] [address]. [place], [place] [address] [place] [address] Care Team Providers Care Retail Parts Pro Name Role Phone Jarred Rod MD Primary Care Provider Unav ailable Crispin Gomez MD Unavailable [phone] Shira Shi PA-C Primary Care Provider [phone] Jarred Rod MD Primary Care Provider Unav ailable Colton SILVEIRA MD, Abiodun L Primary Care Provider Jarred Rod MD Primary Care Provider Unav ailable Reason for Visit * Reason Comments Lab (SCAN) Encounter Details Date Type Department Care Team (Latest Contact Info) Description 12/20/2016 Scan HEALTH INFO SRVCS Scanned, Documents Lab [...] COVID-19? No / Unsure 01/24/2021 11:10 AM SIEBEL DEVELOPER documented as of this encounter Functional [...] st Contact Info) Description 03/14/2024 11:45 AM SIEBEL DEVELOPER Office Visit [facility] [address] Marvin Mckeon MD Three [facility] [address] [place] [address] 03/20/2024 11:30 AM SIEBEL DEVELOPER Office Visit [facility] Family Medicine - [place] 100 [place] [address] Abiodun Segura II, MD 100 [place], [place] [phone] documented as of this encounter Procedures Procedure Name Priority Date/Time Associated Diagnosis Comments OUTSIDE LAB (SCAN ORDER) 12/20/2016 OUTSIDE LAB (SCAN ORDER) 12/20/2016 documented in this encounter Results * OUTSIDE LAB (SCAN) (12/20/2016) 12/20/2016 Narrative 12/20/2016 Ordered by an unspecified provider. us Documents Scanned SCANNING Final Result * OUTSIDE LAB (SCAN) (12/20/2016) 12/20/2016 Narrative 12/20/2016 Ordered by an unspecified provider. us Documents [...] COVID-19 Confirmed 12/13/2019 12/13/2019 0 12:34 AM SIEBEL DEVELOPER documented as of this encounter Care Teams Retail Parts Pro Relationship Specialty Start Date End Date Jarred Rod MD PCP - General FAMILY PRACTICE 07/21/15 09/30/20 Shira Shi PA-C [address] [place] [address] PCP - General PHYSICIAN CURATOR NATURAL HISTORY MUSEUM 10/01/20 11/17/20 Jarred Rod MD [address] [place] [address] PCP - General FAMILY PRACTICE 11/18/20 12/05/20 Abiodun Segura II, MD [address] [place] [address] PCP - General FAMILY PRACTICE 12/06/20 01/16/21 Jarred Rod MD [address] [place] [address] PCP - General FAMILY PRACTICE 01/17/21 03/08/21 Crispin Gomez MD [facility] [address] [place] [address] Willis Truck Driver INTERNAL MEDICINE 07/21/15 documented as of this encounter
--- OUTSIDE RECORDS SUMMARY | 2024-03-02 22:33 | XMS_ITS | Encounter Summary ---
Author Organization [facility] Address [address] [place] [address]. [place] [address] [place] [address] Care Team Providers Care Process Engineering Intern Name Role Phone Jarred Rod MD Primary Care Provider UnaCrispin Myers MD Unavailable [phone] Encounter Details Date Type Department Care Team (Late st Contact Info) Description 08/20/2015 Orders Only [facility] [address] [place] [address] , Giacomo Rudolph MD Social [...] Contact Info) Description 03/14/2024 11:45 AM CLOTH FINISHING RANGE OPERATOR CHIEF Office Visit [facility] [address] Marvin Mckeon MD [facility] [address] [place] [address] 03/20/2024 11:30 AM CLOTH FINISHING RANGE OPERATOR CHIEF Office Visit [facility] Family Medicine - [place] 100 [place] [phone] Abiodun Segura II, MD 100 [place] [address] documented as of this encounter Procedures Procedure Name Priority Date/Time Associated Diagnosis Comments CARDIOLOGY GENERIC 08/20/2015 1: 01 PM CDT documented in this encounter Results * CARDIOLOGY GENERIC (08/20/2015 1:01 PM CDT) 08/20/2015 1:01 PM CDT Narrative [facility] RADIOLOGY - 08/20/2015 12:00 AM CDT ? LENA YOUNGBLOOD MD: SISI SOLIZ MD ?? Acct: [id number] ?? Admit/Service Date: 08/20/15 Discharge Date: 08/20/15 ?? : 1970 Pt Type: DEP ER ?? Sex: F Ord [facility] ?[address] ?Test Date: ?2015-08-20 ?? Pat Name: ? LENA YOUNGBLOOD ?Department: CARD ?? 41 ? Room: ? EWA ?? Gender: ? Female ? Shipping And Receiving Assistant: ?? lmw ?? : ?1970 ? Requested By: SISI SOLIZ ?? Order Number: [id number] ?Reading MD: ?? Alexei Anne ?Measurements ?? Intervals ?[place] ? Rate: ? 92 ? P: ?46 ?? SC: ? 159 ?QRS: ?18 ?? QRSD: ? 81 ? T: ?22 ?? QT: ? 351 ? QTc: ?435 ?Interpretive Statements ?? SINUS RHYTHM ?? MODERATE VOLTAGE CRITERIA FOR LVH, CONSIDER NORMAL VARIANT ?? NONSPECIFIC T-WAVE ABNORMALITY ?? Compared to ECG 05/05/2014 01:21:28 ?? No significant changes ?? No ischemic changes ?? Preliminary EKG interpretation by ED Physician ?? CRITICAL ALERT ISSUED ON 08-20-2015 13:06:37 ? Procedure Note Alexei Rodríguez MD - 08/25/2015 LENA YOUNGBLOOD Ordering MD: SISI SOLIZ MD Acct: [id number] Admit/Service Date: 08/20/15 Discharge Date: 08/20/15 : 1970 Pt Type: DEP ER Sex: F Ord Site: [address] Test Date: 2015-08-20 Pat Name: LENA PERRY Department: CARD 41 Room: [facility] Gender: Female Shipping And Receiving Assistant: alana : 1970 Requested By: SISI SOLIZ Order Number: [id number] Reading MD: Alexei Rodríguez Measurements Intervals [place] Rate: 92 P: 46 SC: 159 QRS: 18 QRSD: 81 T: 22 QT: 351 QTc: 435 Interpretive Statements SINUS RHYTHM MODERATE VOLTAGE CRITERIA FOR LVH, CONSIDER NORMAL VARIANT NONSPECIFIC T-WAVE ABNORMALITY Compared to ECG 05/05/2014 01:21:28 No significant changes No ischemic changes Preliminary EKG interpretation by ED Physician CRITICAL ALERT ISSUED ON 08-20-2015 13:06:37 us Generic Conversion Md [facility] Final Result [facility] RADIOLOGY documented in this encounter Visit Diagnoses Not on filedocumented in this encounter Care Teams Process Engineering Intern Relationship Specialty Start Date End Date Jarred Rod MD PCP - General FAMILY PRACTICE 07/21/15 09/30/20 Crispin Gomez MD Three [facility]. [address] [address] Fermin Button Maker And Installer INTERNAL MEDICINE 07/21/15 documented as of this encounter
--- OUTSIDE RECORDS SUMMARY | 2024-03-02 22:33 | XMS_ITS | Encounter Summary ---
Author Organization [facility] Address [address] [place] [address]. [place] [address] [place] [address] Care Team Providers Care Car Blocker Name Role Phone Jarred Rod MD Primary Care Provider Unav ailable Crispin Gomez MD Unavailable Jarred Rod MD Primary Care Provider Unav ailJarred Hayden MD Primary Care Provider Unav ailable Jarred Rod MD Primary Care Provider Unav ailable Jarred Rod MD Primary Care Provider Unav ailable Encounter Details Date Type Department Care Team (Late st Contact Info) Description 04/17/2006 Emergency [facility] [place] [address] Giacomo Galaviz MD Social History Tobacco Use [...] st Contact Info) Description 03/14/2024 11:45 AM ENVIRONMENTAL HEALTH TECHNOLOGIST Office Visit [facility] [address] Marvin Mckeon MD Three [facility] [address] [place] [address] 03/20/2024 11:30 AM ENVIRONMENTAL HEALTH TECHNOLOGIST Office Visit [facility] Family Medicine - [place] 100 [place] [phone] Abiodun Segura II, MD 100 [place] [address] documented as of this encounter Visit Diagnoses Not on filedocumented in this encounter Care Teams Car Blocker Relationship Specialty Start Date End Date Jarred Rod MD PCP - General FAMILY PRACTICE 07/21/15 09/30/20 Jarred Rod MD PCP - General 05/05/14 07/20/15 Jarred Rod MD PCP - General 03/03/13 05/04/14 Jarred Rod MD PCP - General 12/02/12 03/02/13 Jarred Rod MD PCP - General 11/07/12 12/01/12 Crispin [facility] MD [facility] [place] [address] [employer] Specialist INTERNAL MEDICINE 07/21/15 documented as of this encounter
--- OUTSIDE RECORDS SUMMARY | 2024-03-02 22:33 | XMS_ITS | Encounter Summary ---
Author Organization [facility] Address [address] [place] [address]. [place] [address] [place] [address] Care Team Providers Care Stove Tender Name Role Phone Jarred Rod MD Primary Care Provider UnaCrispin Myers MD Unavailable [phone] Encounter Details Date Type Department Care Team (Late st Contact Info) Description 01/04/2016 Abstract [facility] [place] [address] Joel Santiago MD [address] [place] [phone] Social History Tobacco Use Types Packs/Day Years [...] st Contact Info) Description 03/14/2024 11:45 AM ROOM SERVICE MANAGER Office Visit [facility] [address] Marvin Mckeon MD Three [facility] [address] [place] [address] 03/20/2024 11:30 AM ROOM SERVICE MANAGER Office Visit [facility] Family Medicine - [place] 100 [place] [phone] Abiodun Segura II, MD 100 [place] [address] documented as of this encounter Visit Diagnoses Diagnosis Persons encountering health services in other specified circumstances documented in this encounter Care Teams Stove Tender Relationship Specialty Start Date End Date Jarred Rod MD PCP - General FAMILY PRACTICE 07/21/15 09/30/20 Crispin Gomez MD Three [facility]. DAVID [address] [place] [address] [place] Television Repairer INTERNAL MEDICINE 07/21/15 documented as of this encounter
--- OUTSIDE RECORDS SUMMARY | 2024-03-02 22:33 | XMS_ITS | Encounter Summary ---
Author Organization [facility] Address [address] [place] [address]. [place], [place] [address] [place] [address] Care Team Providers Care Evp Sales Name Role Phone Jarred Rod MD Primary Care Provider Unav ailable Crispin Gomez MD Unavailable [phone] Shira Shi PA-C Primary Care Provider [phone] Jarred Rod MD Primary Care Provider Unav ailable Colton SILVEIRA MD, Abiodun L Primary Care Provider Jarred Rod MD Primary Care Provider Unav ailable Encounter Details Date Type Department Care Team (Latest Contact Info) Description 12/04/2016 Scan HEALTH INFO SRVCS Scanned, Documents Social [...] COVID-19? No / Unsure 01/24/2021 11:10 AM SAFETY GROOVING MACHINE OPERATOR documented as of this encounter [...] st Contact Info) Description 03/14/2024 11:45 AM SAFETY GROOVING MACHINE OPERATOR Office Visit [facility] [address] Marvin Mckeon MD [facility] [address] [place] [phone] 03/20/2024 11:30 AM SAFETY GROOVING MACHINE OPERATOR Office Visit [facility] Family Medicine - [address] [phone] Abiodun Segura II, MD [address] [place] [phone] documented as of this encounter Visit Diagnoses Not on filedocumented in this encounter Additional Health Concerns Infection Onset Date Last Indicated Resolved Time COVID-19 Rule Out 09/22/2019 09/22/2019 09/24/2019 11:13 PM CDT COVID-19 Rule Out 11/02/2019 11/02/2019 11/03/2019 3:22 PM CDT COVID-19 Rule Out 12/13/2019 12/13/2019 12/14/2019 3:06 PM CDT COVID-19 Confirmed 12/13/2019 12/13/2019 0 12:34 AM SAFETY GROOVING MACHINE OPERATOR documented as of this encounter Care Teams Evp Sales Relationship Specialty Start Date End Date Jarred Rod MD PCP - General FAMILY PRACTICE 07/21/15 09/30/20 Shira Shi PA-C [address] [place] [address] PCP - General PHYSICIAN APPLICATION PENETRATION TESTER 10/01/20 11/17/20 Jarred Rod MD [address] [place] [address] PCP - General FAMILY PRACTICE 11/18/20 12/05/20 Abiodun Segura II, MD [address] [place] [address] PCP - General FAMILY PRACTICE 12/06/20 01/16/21 Jarred Rod MD [address] [place] [address] PCP - General FAMILY PRACTICE 01/17/21 03/08/21 Crispin Gomez MD [facility] [address] [place] [address] Laie Front End Wheel Loader Operator INTERNAL MEDICINE 07/21/15 documented as of this encounter
--- OUTSIDE RECORDS SUMMARY | 2024-03-02 22:33 | XMS_ITS | Encounter Summary ---
Author Organization [facility] Address [address] [place] [address]. [place] [address] [place] [address] Care Team Providers Care Varnisher Name Role Phone Jarred Rod MD Primary Care Provider Unav Crispin Peres MD Unavailable [phone] Encounter Details Date Type Department Care Team (Late st Contact Info) Description 02/02/2016 Emergency [facility] Emergency Room ONE [place], [place] [phone] Patricia Rankin L, DO [address] [place], [place] [phone] Social History Tobacco Use Types Packs/Day Years [...] (Late Contact Info) Description 03/14/2024 11:45 AM CAR DRIVER Office Visit [facility] [address] Marvin Mckeon MD [facility] [place] [facility] [address] [place] [address] 03/20/2024 11:30 AM CAR DRIVER Office Visit [facility] Family Medicine - [place] 100 [place] [phone] Abiodun Segura II, MD 100 [place] [address] documented as of this encounter Procedures Procedure Name Priority Date/Time Associated Diagnosis Comments PARTIAL THROMBOPLASTIN TIME,PTT STAT 02/02/2016 1:12 PM CAR DRIVER PROTHROMBIN TIME, VENOUS STAT 02/02/2016 1:12 PM CAR DRIVER COMPREHENSIVE METABOLIC PANEL STAT 02/02/2016 1:12 PM CAR DRIVER CKMB(MB FRACTION ONLY) STAT 6 1:12 PM CAR DRIVER CBC W/DIFF AUTOMATED STAT 02/02/2016 1:12 PM CAR DRIVER TROPONIN, QUANT STAT 02/02/2016 1:12 PM CAR DRIVER CK (CPK) STAT 02/02/2016 1:12 PM CAR DRIVER documented in this encounter Results * TROPONIN, QUANT (02/02/2016 1:12 PM CAR DRIVER) TROPONIN I <0.30 <0.30 ng/mL 02/02/2016 2:49 PM CAR DRIVER [facility] SERUM OR PLASMA SPECIMEN / Unknown 02/02/2016 1:12 PM CAR DRIVER 02/02/2016 2:13 PM CAR DRIVER us Generic Conversion Md [facility] Final R esult [facility] [address] [place] [address], * CKMB(MB FRACTION ONLY) (02/02/2016 1:12 PM CAR DRIVER) CK-MB 1.80 <4.30 ng/mL 02/02/2016 2:49 PM CAR DRIVER [facility] SERUM OR PLASMA SPECIMEN / Unknown 02/02/2016 1:12 PM CAR DRIVER 02/02/2016 2:13 PM CAR DRIVER us Generic Conversion Md [facility] Final R [facility] [address] [place] [address], * PARTIAL THROMBOPLASTIN TIME,PTT (02/02/2016 1:12 PM CAR DRIVER) PTT 27.8 25.5 - 37.6 SEC 02/02/2016 2:40 PM CAR DRIVER [facility] PLASMA SPECIMEN / Unknown 02/02/2016 1:12 PM CAR DRIVER 02/02/2016 2:13 PM CAR DRIVER us Generic Conversion Md [facility] Final R esult [facility] [address] [place] [address], * PROTIME/INR, VENOUS (02/02/2016 1:12 PM CAR DRIVER) PROTIME 11.5 9.6 - 12.2 SEC 02/02/2016 2:40 PM CAR DRIVER [facility] INR 1.0 02/02/2016 2:40 PM CAR DRIVER [facility] Comment: Recommended INR Therapeutic Goals: ??2.0-3.0 Routine Therapy ??2.5-3.5 Mechanical Prosthetic Valves (High Risk) ??3.0-4.0 Acute VA (to prevent Systemic Embolism) The INR is used only for patients on stable oral anticoagulant therapy. It makes no significant contribution to the diagnosis or treatment of patients whose Protime is prolonged for other reasons. 02/02/2016 1:12 PM CAR DRIVER 02/02/2016 2:13 PM CAR DRIVER us Generic Conversion Md [facility] Final R esult Performing Organization Address [facility]/ZIP Co de Phone Number [facility] [address] [place] [address], * CK (CPK) (02/02/2016 1:12 PM CAR DRIVER) CPK 156 26 - 192 U/L 02/02/2016 2:58 PM CAR DRIVER [facility] SERUM OR PLASMA SPECIMEN / Unknown 02/02/2016 1:12 PM CAR DRIVER 02/02/2016 2:13 PM CAR DRIVER us Generic Conversion Md [facility] Final R esult Performing Organization Address [facility] Co de Phone Number [facility] [address] [place] [address], * (ABNORMAL) COMPREHENSIVE METABOLIC PANEL (02/02/2016 1:12 PM CAR DRIVER) GLUCOSE 255(H) 70 - 99 mg/dL 02/02/2016 2:58 PM CAR DRIVER [facility] BUN 20 8 - 23 mg/dL 02/02/2016 2:58 PM CAR DRIVER [facility] CREATININE S/P/B 0.68 0.60 - 1.10 mg/dL 02/02/2016 2:58 PM CAR DRIVER [facility] SODIUM S/P/B 135(L) 136 - 145 mmol/L 02/02/2016 2:58 PM CAR DRIVER [facility] POTASSIUM S/P/B 4.4 3.5 - 5.1 mmol/L 02/02/2016 2:58 PM [facility] CHLORIDE S/P/B 95(L) 98 - 107 mmol/L 02/02/2016 2:58 PM [facility] CO2 25 22 - 29 mmol/L 02/02/2016 2:58 PM [facility] BILIRUBIN TOTAL S/P/B 0.6 0.2 - 1.2 mg/dL 02/02/2016 2:58 PM [facility] CALCIUM S/P/B 10.2 8.6 - 10.2 mg/dL 02/02/2016 2:58 PM [facility] ALKALINE PHOSPHATASE S/P/B 126(H) 35 - 104 U/L 02/02/2016 2:58 PM [facility] AST 15 0 - 32 U/L 02/02/2016 2:58 PM [facility] TOTAL PROTEIN S/P/B 8.9(H) 6.4 - 8.3 g/dL 02/02/2016 2:58 PM [facility] ALBUMIN S/P/B 4.2 3.5 - 5.2 g/dL 02/02/2016 2:58 PM [facility] ALT 18 0 - 33 U/L 02/02/2016 2:58 PM [facility] GLOBULIN 4.7(H) 2.3 - 3.6 g/dL 02/02/2016 2:58 PM [facility] A/G RATIO 0.9(L) 1.0 - 2.0 02/02/2016 2:58 PM [facility] ANION GAP 19 8 - 20 02/02/2016 2:58 PM [facility] EGFR NON-AFR. AMER. >60 >60 mL/min/1.7 3m'2 02/02/2016 2:58 PM [facility] EGFR AFR. AMER. >60 >60 mL/min/1.7 3m'2 02/02/2016 2:58 PM CAR DRIVER [facility] Comment: NOTE: eGFR is not calculated for patients <18 years of age. This is an estimated GFR (CKD EPI) and should not be used for calculating drug doses. 02/02/2016 1:12 PM CAR DRIVER 02/02/2016 2:13 PM CAR DRIVER us Generic Conversion Md [facility] Final R esult [facility] [address] [place] [id number], * (ABNORMAL) CBC W/DIFF AUTOMATED (02/02/2016 1:12 PM CAR DRIVER) WBC 11.8(H) 4.8 - 10.8 x10'3/uL 02/02/2016 2:36 PM [facility] RBC 4.14(L) 4.20 - 5.40 x10'6/uL 02/02/2016 2:36 PM [facility] HGB 12.6 12.0 - 16.0 G/DL 02/02/2016 2:36 PM [facility] HCT 36.0(L) 38.0 - 48.0 % 02/02/2016 2:36 PM [facility] MCV 87.0 81.0 - 99.0 FL 02/02/2016 2:36 PM [facility] MCH 30.4 27.0 - 31.0 PG 02/02/2016 2:36 PM [facility] MCHC 35.0 32.0 - 36.0 G/DL 02/02/2016 2:36 PM [facility] RDW 12.4 11.5 - 14.5 % 02/02/2016 2:36 PM CAR DRIVER [facility] PLT 309 130 - 400 x10'3/uL 02/02/2016 2:36 PM CAR DRIVER [facility] MPV 11.1 9.3 - 12.2 FL 02/02/2016 2:36 PM CAR DRIVER [facility] IMMATURE GRANS % 0.3 0.0 - 1.0 % 02/02/2016 2:36 PM CAR DRIVER [facility] NEUTROPHILS % 79.6(H) 43.0 - 65.0 % 02/02/2016 2:36 PM CAR DRIVER [facility] LYMPHOCYTES % 16.4(L) 20.0 - 46.0 % 02/02/2016 2:36 PM CAR DRIVER [facility] MONOCYTES % 3.2(L) 5.0 - 12.0 % 02/02/2016 2:36 PM CAR DRIVER [facility] EOSINOPHILS 0.2(L) 1.0 - 3.0 % 02/02/2016 2:36 PM [facility] BASOPHILS 0.3 0.0 - 1.0 % 02/02/2016 2:36 PM [facility] WHOLE BLOOD SPECIMEN / Unknown 02/02/2016 1:12 PM CAR DRIVER 02/02/2016 2:13 PM CAR DRIVER us Generic Conversion Md [facility] Final R esult [facility] [address] [place] [address], documented in this encounter Visit Diagnoses Diagnosis Chest pain Chest pain, unspecified documented in this encounter Care Teams Varnisher Relationship Specialty Start Date End Date Jarred Rod MD PCP - General FAMILY PRACTICE 07/21/15 09/30/20 [place] [address] Fermin Continuous Wave Operator INTERNAL MEDICINE 07/21/15 documented as of this encounter
--- OUTSIDE RECORDS SUMMARY | 2024-03-02 22:33 | XMS_ITS | Encounter Summary ---
Author Organization [facility] Address [address] [place] [address]. [place] [address] [place] [address] Care Team Providers Care Statuary Painter Name Role Phone Jarred Rod MD Primary Care Provider Unav Crispin Peres MD Unavailable [phone] Encounter Details Date Type Department Care Team (Late st Contact Info) Description 11/24/2015 Abstract [facility] [place] [address] , Giacomo Rudolph MD Social History Tobacco [...] st Contact Info) Description 03/14/2024 11:45 AM OBSTETRICS TECH Office Visit [facility]-[address] [address] Marvin Mckeon MD Three [facility] [address] [place] [address] 03/20/2024 11:30 AM OBSTETRICS TECH Office Visit [facility] Family Medicine - [place] [address] [place] [phone] Abiodun Segura II, MD 100 [place] [address] documented as of this encounter Visit Diagnoses Diagnosis Primary osteoarthritis, right ankle and foot documented in this encounter Care Teams Statuary Painter Relationship Specialty Start Date End Date Jarred Rod MD PCP - General FAMILY PRACTICE 07/21/15 09/30/20 Crispin Gomez MD [facility] [address] [place] [address] Fermin Research Food Technologist INTERNAL MEDICINE 07/21/15 documented as of this encounter
--- OUTSIDE RECORDS SUMMARY | 2024-03-02 22:33 | XMS_ITS | Encounter Summary ---
Author Organization [facility] Address [address] [place] [address]. [place] [address] [place] [address] Care Team Providers Care Business Analyst Sales Operations Name Role Phone Jarred Rod MD Primary Care Provider UnaCrispin Myers MD Unavailable [phone] Encounter Details Date Type Department Care Team (Late st Contact Info) Description 01/17/2016 Abstract [facility] [place] [address] Joel Santiago MD [address] [place] [phone] Social History Tobacco Use Types Packs/Day Years [...] Contact Info) Description 03/14/2024 11:[address] SQL DEVELOPER Office Visit [facility] [address] Marvin Mckeon MD Three [facility] [address] [place] [address] 03/20/2024 11:[address] SQL DEVELOPER Office Visit [facility] - [place] [address] [place] [phone] Abiodun Segura II, MD [address] [place] [address] documented as of this encounter Procedures Procedure Name Priority Date/Time Associated Diagnosis Comments BASIC METABOLIC PANEL Routine 01/17/2016 6:[address] SQL DEVELOPER CBC W/DIFF AUTOMATED Routine 01/17/2016 6:[address] SQL DEVELOPER CKMB(MB FRACTION ONLY) TIMED 01/17/2016 3:[address] SQL DEVELOPER TROPONIN, QUANT TIMED 01/17/2016 3:[address] SQL DEVELOPER CK (CPK) STAT 01/17/2016 3:[address] SQL DEVELOPER POCT GLUCOSE - CORREA DOCKED DEVICE Routine 01/17/2016 12:[address] SQL DEVELOPER CKMB(MB FRACTION ONLY) STAT 01/17/2016 10:[address] SQL DEVELOPER TROPONIN, QUANT STAT 01/17/2016 10:[address] SQL DEVELOPER CK (CPK) STAT 01/17/2016 10:[address] SQL DEVELOPER POCT GLUCOSE - CORREA DOCKED DEVICE Routine 01/17/2016 9:[address] SQL DEVELOPER POCT GLUCOSE - CORREA DOCKED DEVICE Routine 01/17/2016 7:[address] SQL DEVELOPER BASIC METABOLIC PANEL STAT 01/17/2016 6:[address] SQL DEVELOPER documented in this encounter Results * (ABNORMAL) CBC W/DIFF AUTOMATED (01/17/2016 6:51 PM [facility]) WBC 10.3 4.8 - 10.8 x10'3/uL 01/17/2016 8:[address] [facility] RBC 3.63(L) 4.20 - 5.40 x10'6/uL 01/17/2016 8:[address] [facility] HGB 11.2(L) 12.0 - 16.0 G/DL 01/17/2016 8:[address] [facility] HCT 32.3(L) 38.0 - 48.0 % 01/17/2016 8:[address] [facility] MCV 89.0 81.0 - 99.0 FL 01/17/2016 8:[address] [facility] MCH 30.9 27.0 - 31.0 PG 01/17/2016 8:[address] [facility] MCHC 34.7 32.0 - 36.0 G/DL 01/17/2016 8:[address] [facility] RDW 12.7 11.5 - 14.5 % 01/17/2016 8:[address] [facility] PLT 267 130 - 400 x10'3/uL 01/17/2016 8:[address] [facility] MPV 11.0 9.3 - 12.2 FL 01/17/2016 8:[address] [facility] IMMATURE GRANS % 0.2 0.0 - 1.0 % 01/17/2016 8:[address] [facility] NEUTROPHILS % 60.5 43.0 - 65.0 % 01/17/2016 8:[address] [facility] LYMPHOCYTES % 32.7 20.0 - 46.0 % 01/17/2016 8:[address] [facility] MONOCYTES % 5.2 5.0 - 12.0 % 01/17/2016 8:[address] SQL DEVELOPER [facility] EOSINOPHILS 0.9(L) 1.0 - 3.0 % 01/17/2016 8:[address] [facility] BASOPHILS 0.5 0.0 - 1.0 % 01/17/2016 8:[address] [facility] WHOLE BLOOD SPECIMEN / Unknown 01/17/2016 6:[address] SQL DEVELOPER 01/17/2016 7:[address] SQL DEVELOPER us Generic Conversion Md [facility] Final R esult [facility] [address] [place] [address], [place] [phone] * (ABNORMAL) BASIC METABOLIC PANEL (01/17/2016 6:[address] SQL DEVELOPER) GLUCOSE 177(H) 70 - 99 mg/dL 01/17/2016 8:[address] [facility] BUN 26(H) 8 - 23 mg/dL 01/17/2016 8:[address] [facility] CREATININE S/P/B 0.94 0.60 - 1.10 mg/dL 01/17/2016 8:[address] [facility] SODIUM S/P/B 135(L) 136 - 145 mmol/L 01/17/2016 8:[address] [facility] POTASSIUM S/P/B 4.2 3.5 - 5.1 mmol/L 01/17/2016 8:[address] [facility] CHLORIDE S/P/B 99 98 - 107 mmol/L 01/17/2016 8:[address] [facility] CO2 24 22 - 29 mmol/L 01/17/2016 8:[address] [facility] CALCIUM S/P/B 9.0 8.6 - 10.2 mg/dL 01/17/2016 8:[address] SQL DEVELOPER [facility] ANION GAP 16 8 - 20 01/17/2016 8:[address] [facility] EGFR NON-AFR. AMER. >60 >60 mL/min/1.7 3m'2 01/17/2016 8:[address] [facility] EGFR AFR. AMER. >60 >60 mL/min/1.7 3m'2 01/17/2016 8:[address] [facility] Comment: NOTE: eGFR is not calculated for patients <18 years of age. This is an estimated GFR (CKD EPI) and should not be used for calculating drug doses. 01/17/2016 6:[address] SQL DEVELOPER 01/17/2016 7:[address] SQL DEVELOPER us Generic Conversion Md [facility] Final R esult [facility] [address] [place] [address], * TROPONIN, QUANT (01/17/2016 3:[address] SQL DEVELOPER) TROPONIN I <0.30 <0.30 ng/mL 01/17/2016 5:[address] SQL DEVELOPER [facility] SERUM OR PLASMA SPECIMEN / Unknown 01/17/2016 3:[address] SQL DEVELOPER 01/17/2016 4:[address] SQL DEVELOPER us Generic Conversion Md [facility] Final R esult Performing Organization Address City/[facility]/ZIP Co de Phone Number [facility] [address] [place] [address], [place] [phone] * CKMB(MB FRACTION ONLY) (01/17/2016 3:[address] SQL DEVELOPER) CK-MB 2.09 <4.30 ng/mL 01/17/2016 5:[address] SQL DEVELOPER [facility] SERUM OR PLASMA SPECIMEN / Unknown 01/17/2016 3:[address] SQL DEVELOPER 01/17/2016 4:[address] SQL DEVELOPER us Generic Conversion Md [facility] Final R esult Performing Organization Address [facility] Co de Phone Number [facility] [address] [place] [address], [place] [phone] * CK (CPK) (01/17/2016 3:[address] SQL DEVELOPER) CPK 141 26 - 192 U/L 01/17/2016 5:[address] SQL DEVELOPER [facility] SERUM OR PLASMA SPECIMEN / Unknown 01/17/2016 3:[address] SQL DEVELOPER 01/17/2016 4:[address] SQL DEVELOPER us Generic Conversion Md [facility] Final R esult Performing Organization Address [facility] Co de Phone Number [facility] [address] [place] [address], [place] [phone] * (ABNORMAL) POCT glucose (01/17/2016 12:[address] SQL DEVELOPER) GLUCOSE POC 113(H) 70 - 99 mg/dL 01/17/2016 2:[address] SQL DEVELOPER [facility] ORDERS INTERFACE 01/17/2016 12:[address] SQL DEVELOPER 01/17/2016 2:[address] SQL DEVELOPER us Generic Conversion Md RYDER POCT ORDERABLES - DEVIC E Final Result Performing Organization Address [facility] Co de Phone Number [facility] ORDERS INTERFACE US * CK (CPK) (01/17/2016 10:[address] SQL DEVELOPER) CPK 151 26 - 192 U/L 01/17/2016 12:[address] SQL DEVELOPER [facility] SERUM OR PLASMA SPECIMEN / Unknown 01/17/2016 10:[address] SQL DEVELOPER 01/17/2016 12:[address] SQL DEVELOPER Generic Conversion Md [facility] Final R esnas Performing Organization Address [facility]/ZIP Co de Phone Number [facility] [address] [place] [address], * TROPONIN, QUANT (01/17/2016 10:[address] SQL DEVELOPER) TROPONIN I <0.30 <0.30 ng/mL 01/17/2016 12:[address] SQL DEVELOPER [facility] SERUM OR PLASMA SPECIMEN / Unknown 01/17/2016 10:[address] SQL DEVELOPER 01/17/2016 12:[address] SQL DEVELOPER Generic Conversion Md [facility] Final R esnas Performing Organization Address [facility]/ZIP Co de Phone Number [facility] [address] [place] [address], * CKMB(MB FRACTION ONLY) (01/17/2016 10:[address] SQL DEVELOPER) CK-MB 2.31 <4.30 ng/mL 01/17/2016 12:[address] SQL DEVELOPER [facility] SERUM OR PLASMA SPECIMEN / Unknown 01/17/2016 10:[address] SQL DEVELOPER 01/17/2016 12:[address] SQL DEVELOPER Generic Klaudia Ryder MD LABORATORY Final R charley Performing Organization Address [facility]/ZIP Co de Phone Number [facility] [address] [place] [address], * (ABNORMAL) POCT glucose (01/17/2016 9:[address] SQL DEVELOPER) GLUCOSE POC 161(H) 70 - 99 mg/dL 01/17/2016 10:[address] SQL DEVELOPER [facility] ORDERS INTERFACE 01/17/2016 9:[address] SQL DEVELOPER 01/17/2016 10:[address] SQL DEVELOPER us Generic Conversion Md RYDER POCT ORDERABLES - DEVIC E Final Result [facility] ORDERS INTERFACE US * (ABNORMAL) POCT glucose (01/17/2016 7:[address] SQL DEVELOPER) GLUCOSE POC 243(H) 70 - 99 mg/dL 01/17/2016 8:[address] SQL DEVELOPER [facility] ORDERS INTERFACE 01/17/2016 7:[address] SQL DEVELOPER 01/17/2016 8:[address] SQL DEVELOPER us Generic Conversion Md RYDER POCT ORDERABLES - DEVIC E Final Result Performing Organization Address [facility] Co de Phone Number [facility] ORDERS INTERFACE US * (ABNORMAL) BASIC METABOLIC PANEL (01/17/2016 6:[address] SQL DEVELOPER) GLUCOSE 238(H) 70 - 99 mg/dL 01/17/2016 8:[address] [facility] BUN 29(H) 8 - 23 mg/dL 01/17/2016 8:[address] [facility] CREATININE S/P/B 0.86 0.60 - 1.10 mg/dL 01/17/2016 8:[address] [facility] SODIUM S/P/B 137 136 - 145 mmol/L 01/17/2016 8:[address] [facility] POTASSIUM S/P/B 4.5 3.5 - 5.1 mmol/L 01/17/2016 8:[address] [facility] CHLORIDE S/P/B 100 98 - 107 mmol/L 01/17/2016 8:[address] [facility] CO2 24 22 - 29 mmol/L 01/17/2016 8:[address] [facility] CALCIUM S/P/B 9.6 8.6 - 10.2 mg/dL 01/17/2016 8:[address] SQL DEVELOPER [facility] ANION GAP 18 8 - 20 01/17/2016 8:[address] SQL DEVELOPER [facility] EGFR NON-AFR. AMER. >60 >60 mL/min/1.7 3m'2 01/17/2016 8:[address] SQL DEVELOPER [facility] EGFR AFR. AMER. >60 >60 mL/min/1.7 [facility]2 01/17/2016 8:[address] [facility] Comment: NOTE: eGFR is not calculated for patients <18 years of age. This is an estimated GFR (CKD EPI) and should not be used for calculating drug doses. 01/17/2016 6:[address] SQL DEVELOPER 01/17/2016 8:[address] SQL DEVELOPER us Generic Conversion Md [facility] Final R esult [facility] [address] [place] [address], documented in this encounter Visit Diagnoses Diagnosis Type 2 diabetes mellitus with foot ulcer (CODE) (CMS/HCC [facility]) documented in this encounter Care Teams Business Analyst Sales Operations Relationship Specialty Start Date End Date Jarred Rod MD PCP - General FAMILY PRACTICE 07/21/15 09/30/20 Crispin Gomez MD [address] [address] [place] Driver Merchandiser INTERNAL MEDICINE 07/21/15 documented as of this encounter
--- OUTSIDE RECORDS SUMMARY | 2024-03-02 22:33 | XMS_ITS | Encounter Summary ---
Author Organization [facility] Address [address] [place] [address]. [place] [address] [place] [address] Care Team Providers Care Jump Roll Operator Name Role Phone eTrrance Fernández MD Primary Care Provider Unav ailable Reason for Visit * Reason Comments Foot Ulcer Encounter Details Date Type Department Care Team (Late st Contact Info) Description 06/28/2017 3:15 PM CDT Office Visit [facility], [facility] [address] [place], [place] [address] Hubert Barrera MD [facility]. [facility] [address] [place], [place] [id number] Foot Ulcer Social History Tobacco Use Types Packs/Day Years [...] Sign Reading Time Taken Comments Blood Pressure 172/100 06/28/2017 2:55 PM CDT Pulse 86 06/28/2017 2:55 PM CDT Temperature - - Respiratory Rate - - Oxygen Saturation - - Inhaled Oxygen Concentration - - Weight 94.3 kg (207 lb 12.8 oz) 06/28/2017 2:55 PM CDT Height 167.6 cm (5' 6 ) 06/28/2017 2:55 PM CDT Body Mass Index 33.54 06/28/2017 2:55 PM CDT documented in this encounter Patient Instructions * Patient Instructions* Denise Bright - 06/28/2017 3:15 PM CDT Images from the original note were not included. Patient Education Diabetes and Infections The Basics Written by the doctors and editors at [facility] Do people with diabetes have a higher chance of getting infections???--??Yes. People with diabetes have a higher chance of getting certain infections. Doctors think this is likely due to: ?High blood sugar - Blood sugar levels that are too high can keep a person's infection-fighting system (called the immune system ) from working as well as it should. ?Nerve damage - Over time, diabetes can cause nerve damage. This can lead to problems. For example,nerve damage can make people unable to feel pain in their feet. So if a person gets a cut on the foot or steps on a nail or other sharp object that pierces the skin, he or she might not know it. If awound isn't treated right away, it can become an open sore and get infected. ?Blood vessel problems - Over time, diabetes can damage the blood vessels. Then blood can't flow aswell to help heal an infection. It's important that people with diabetes let their doctor or nurse know right away if they think they have an infection. That's because people with diabetes who get an infection are more likely to get a serious condition called diabetic ketoacidosis. What kinds of infections do people with diabetes commonly get???--??People with diabetes commonly get: ?Skin infections ?Vaginal yeast infections (in women) ?Bladder or kidney infections ?Infections on the feet ?Yeast infections in the mouth (called thrush ) ?Lung infections ?Infections after surgery, around the cut from the surgery When should I call my doctor or nurse???--??Certain symptoms might mean you have an infection. Callyour doctor or nurse if you have diabetes and get any of the following symptoms: ?Fever, aches, or chills ?Nausea, vomiting, or diarrhea ?A rash ?Redness, swelling, warmth, or increased pain around a cut or scrape, or pus draining from a cut orscrape ?Feeling the need to urinate a lot, having pain when you urinate, or having cloudy or bad-smelling urine ?Vaginal itching or discharge ?A cough ?White patches in your mouth or on your tongue Is there anything I can do to help prevent infections???--??Yes. People with diabetes can do different things to help prevent infections. One of the most important things you can do is keep your blood sugar level under control. Controlling your blood sugar can help reduce nerve and blood vessel damage from diabetes. Another important thing you can do is take good care of your feet. This can help prevent foot infections. To protect and take care of your feet, you can: ?Wear shoes or slippers all the time. ?Trim your toe nails carefully. Cut straight across and file the nail (figure 1). Do not cut cuticles or pop blisters. ?Wash your feet with warm water and soap every day and pat them dry. Put a moisturizing cream or lotion on your feet. ?Check both feet every day (figure 2). Look for cuts, blisters, swelling, or redness. Make sure to check all over your feet, including the bottoms of your feet and in between your toes. If you can't see well or if you have trouble seeing the bottoms of your feet, ask a family member or friend to check your feet. ?Wear socks that are not too tight, and change them every day. ?Wear shoes that fit well, and are not too tight. ?Check inside your shoes before you put them on. Make sure there is nothing sharp inside. ?Have your doctor check your feet at each visit. To help prevent infections in other parts of your body, you can: ?Take care of your skin by keeping it clean and dry. Wear gloves when you use harsh cleaning chemicals or other products that could harm your skin. If you get a cut or scrape, wash it right away withsoap and water. If it doesn't heal or gets worse, see your doctor or nurse. ?Take care of your gums and teeth. [place] your teeth twice a day, floss your teeth every day, and see your dentist for regular check-ups. ?Eat a healthy diet that includes protein, vegetables, and fruits. Drink plenty of fluids. ?Get the pneumonia vaccine, the flu vaccine (every year), and any other vaccines your doctor recommends. ?Wash your hands often, especially if you are around people who are sick. ?Avoid holding in your urine for very long periods of time. ?Stop smoking. Smoking makes blood vessel problems worse. If you do get an infection and your doctor prescribes antibiotic medicines, be sure to take them exactly as prescribed. If you don't take all of your antibiotics, your infection could come back. All topics are updated as new evidence becomes available and our peer review process is complete. This topic retrieved from [employer] on: Feb 22, 2017. Topic 26139 Version 4.0 Release: 25.6.2-122 - C26.3 ?2018??[employer] and/or its affiliates.??All rights reserved. figure 1: Trim your toenails Graphic 94440 Version 1.0 figure 2: Foot check for people with diabetes People with diabetes should check both of their feet every day. It is important to check your feet all over, including in between your toes. If you can't see the bottom of your foot, use a mirror or ask another person to check for you. Let your doctor or nurse know if you find any: ?? Redness ?? Cuts or cracks in the skin ?? Blisters ?? Swelling Graphic 93405 Version 3.0 Consumer Information Use and Disclaimer This information is not specific medical advice and does not replace information you receive from your health care provider. This is only a brief summary of general information. It does NOT include all information about conditions, illnesses, injuries, tests, procedures, treatments, therapies, discharge instructions or life-style choices that may apply to you. You must talk with your health care provider for complete information about your health and treatment options. This information should not be used to decide whether or not to accept your health care provider's advice, instructions or recommendations. Only your health care provider has the knowledge and training to provide advice that is right for you.The use of [employer] content is governed by the [employer] Terms of Use. ??2018 [employer]. All rights reserved. Copyright ?2018??[employer]. and/or its affiliates.??All rights reserved. documented in this encounter Progress Notes * Hubert Barrera MD - 06/28/2017 3:15 PM CDT Images from the original note were not included. Reason for Visit: Diabetic foot ulcer History of Present Illness: This is a 47-year-old female who presents with a diabetic foot ulcer ofthe left plantar foot. The patient has a history of Charcot foot due to diabetes mellitus. She was recently hospitalized for cellulitis of the foot. X-rays were obtained which were suggestive of osteo myelitis. She denies fevers and chills. She denies claudication symptoms. Recommendations and Plan: The patient has recurrent diabetic foot ulcer. She does not currently have any signs or symptoms of cellulitis. I recommended MRI of the foot to evaluate for osteomyelitis. She will need to use the wound shoe or diabetic shoe on a daily basis. Follow-up after testing. Medications: Current Outpatient Prescriptions: ??? HUMALOG MIX 75/25 (75-25) 100 UNIT/ML Suspension, Take 55 units in AM and 50 units PM, this should be titrated depending on your blood sugar numbers., Disp: 1 vial, Rfl: 1 ??? hydrochlorothiazide 25 MG tablet, Take 25 mg by mouth nightly., Disp: , Rfl: ??? lisinopril 40 MG tablet, Take 40 mg by mouth nightly. , Disp: , Rfl: ??? metoprolol tartrate 100 MG tablet, Take 100 mg by mouth nightly. , Disp: , Rfl: ??? simvastatin 40 MG tablet, Take 40 mg by mouth nightly at bedtime. , Disp: , Rfl: ??? vitamin B-12 100 MCG tablet, Take 50 mcg by mouth daily., Disp: , Rfl: Allergies Allergen Reactions ??? Amoxicillin Rash ??? [...] children: N/A ??? Years of education: N/A Social History Main Topics ??? Smoking status: Never Smoker ??? Smokeless tobacco: Never Used ??? Alcohol use No ??? Drug use: No ??? Sexual activity: Not Asked Other Topics Concern ??? Caffeine Concern No ??? Exercise No ??? Seat Belt Yes Social History Narrative lives with Family History Problem Relation Age of Onset ??? Diabetes Mother ??? Heart Attack Father Family Status Relation Status ??? Mother Alive, age 69y ??? Father Alive, age 68y Review of Systems Constitutional: Negative. HENT: Negative. Eyes: Negative. Respiratory: Negative. Cardiovascular: Negative. Gastrointestinal: Negative. Genitourinary: Negative. Musculoskeletal: Positive for myalgias and joint stiffness/pain. Skin: Negative. Neurological: Positive for tingling/numbness. Endo/Heme/Allergies: Negative. Psychiatric/Behavioral: Negative. All other systems reviewed and are negative. Filed Vitals: 06/28/17 1455 BP: (!) 172/100 Pulse: 86 Weight: 94.3 kg (207 lb 12.8 oz) Height: 5' 6 (1.676 m) Physical Exam Constitutional: She is oriented to person, place, and time. She appears well- developed and well-nourished. No distress. HENT: Head: Normocephalic and atraumatic. Mouth/Throat: No oropharyngeal exudate. Eyes: Conjunctivae are normal. Right eye exhibits no discharge. Left eye exhibits no discharge. No scleral icterus. Neck: Neck supple. No JVD present. No tracheal deviation present. Cardiovascular: Normal rate. Pulses: Dorsalis pedis pulses are 2+ on the left side. Posterior tibial pulses are 0 on the left side. Pulmonary/Chest: Effort normal. No respiratory distress. Abdominal: Soft. She exhibits no distension. There is no tenderness. Musculoskeletal: She exhibits no edema. Neurological: She is alert and oriented to person, place, and time. No cranial nerve deficit. Skin: Skin is warm and dry. She is not diaphoretic. No erythema. Psychiatric: She has a normal mood and affect. Her behavior is normal. Judgment normal. Diagnoses/Impression: 1. Diabetic ulcer of left foot associated with type 2 diabetes mellitus, limited to breakdown of skin, unspecified part of foot Referring Provider: No ref. provider found PCP: TERRANCE FERNÁNDEZ MD documented in this encounter Plan of Treatment Upcoming Encounters Date Type Department Care Team (Late st Contact Info) Description 03/14/2024 11:45 AM CRYPTOLOGIC LINGUIST Office Visit [facility] [phone] Marvin Mckeon MD [facility] [address] [place] [address] 03/20/2024 11:30 AM CRYPTOLOGIC LINGUIST Office Visit [facility] - [place] [address] [place] [phone] Abiodun Segura II, MD [address] [place] [address] documented as of this encounter Visit Diagnoses Diagnosis Diabetic ulcer of left foot associated with type 2 diabetes mellitus, limited to breakdown of skin, unspecified part of foot (CMS/HCC HHS/HCC)- Primary documented in this encounter Care Teams Jump Roll Operator Relationship Specialty Start Date End Date Terrance Fernández MD PCP - General FAMILY PRACTICE 07/21/15 09/30/20 documented as of this encounter
--- OUTSIDE RECORDS SUMMARY | 2024-03-02 22:33 | XMS_ITS | Encounter Summary ---
Author Organization [facility] Address [address] [place] [address]. [place] [address] [place] [address] Care Team Providers Care Military Cook Name Role Phone Jarred Rod MD Primary Care Provider Unav Crispin Peres MD Unavailable [phone] Encounter Details Date Type Department Care Team (Late st Contact Info) Description 02/02/2016 Orders Only [facility] AT [address] [place] [address] Donna Linton, DO [address] [facility] [address] Social History Tobacco Use Types Packs/Day Years [...] st Contact Info) Description 03/14/2024 11:45 AM UNIT AID Office Visit [facility] [address] Marvin Mckeon MD Three [facility] [address] [place] [address] 03/20/2024 11:30 AM UNIT AID Office Visit [facility] Family Medicine - [address] [place] [phone] Abiodun Segura II, MD [address] [place] [address] documented as of this encounter Procedures Procedure Name Priority Date/Time Associated Diagnosis Comments CARDIOLOGY GENERIC 02/02/2016 1: 10 PM UNIT AID documented in this encounter Results * CARDIOLOGY GENERIC (02/02/2016 1:10 PM UNIT AID) 02/02/2016 1:10 PM UNIT AID Narrative [facility] - 02/02/2016 12:00 AM UNIT AID ? LENA YOUNGBLOOD MD: DONNA LINTON DO ?? Acct: [id number] ?? Admit/Service Date: 02/02/16 Discharge Date: ?? : 1970 Pt Type: REG ER ?? Sex: F Ord [facility] ?[address] ?Test Date: ?2016-02-02 ?? Pat Name: ? LENA YOUNGBLOOD ?Department: CARD ?? 41 ? Room: ? Gender: ? Female ? Cosmetic Counselor: ?? PL ?? : ?1970 ? Requested By: DONNA LINTON DONNA LINTON ?? Order Number: [id number] ?Reading MD: ?? Paban Janes ?Measurements ?? Intervals ?[place] ? Rate: ? 85 ? P: ?46 ?? IL: ? 169 ?QRS: ?21 ?? QRSD: ? 81 ? T: ?5 ?? QT: ? 362 ? QTc: ?431 ?Interpretive Statements ?? SINUS RHYTHM ?? NONSPECIFIC T-WAVE ABNORMALITY ?? Compared to ECG 01/21/2016 08:53:35 ?? No significant changes ?? AID ? Procedure Note Leonel Marrero MD - 02/02/2016 LENA YOUNGBLOOD Ordering MD: DONNA LINTON DO Acct: [id number] Admit/Service Date: 02/02/16 Discharge Date: : 1970 Pt Type: REG ER Sex: F Ord Site: [address] Test Date: 2016-02-02 Pat Name: LENA YOUNGBLOOD Department: CARD 41 Room: Gender: Female Cosmetic Counselor: PL : 1970 Requested By: DONNA HILTON Order Number: [id number] Reading MD: Leonel Marrero Measurements Intervals [place] Rate: 85 P: 46 [place]: 169 QRS: 21 QRSD: 81 T: 5 QT: 362 QTc: 431 Interpretive Statements SINUS RHYTHM NONSPECIFIC T-WAVE ABNORMALITY Compared to ECG 01/21/2016 08:53:35 No significant changes AID us Donna Linton DO [facility] Final Resul t [facility] documented in this encounter Visit Diagnoses Not on filedocumented in this encounter Care Teams Military Cook Relationship Specialty Start Date End Date Jarred Rod MD PCP - General FAMILY PRACTICE 07/21/15 09/30/20 Crispin Gomez MD [id number] [place] [address] [place] Pig Furnace Operator INTERNAL MEDICINE 07/21/15 documented as of this encounter
--- OUTSIDE RECORDS SUMMARY | 2024-03-02 22:33 | XMS_ITS | Encounter Summary ---
Author Organization [facility] Address [address] [place] [address]. [place] [address] [place] [address] Care Team Providers Care Business Analysis Analyst Name Role Phone Jarred Rod MD Primary Care Provider UnaCrispin Myers MD Unavailable [phone] Encounter Details Date Type Department Care Team (Late st Contact Info) Description 01/21/2016 Orders Only [facility] [address] [place] [address] , Giacomo Rudolph MD Social [...] st Contact Info) Description 03/14/2024 11:45 AM BROILER MANAGER Office Visit [facility] [address] Marvin Mckeon MD [facility] [address] [place], [place] [address] 03/20/2024 11:30 AM BROILER MANAGER Office Visit [facility] Family Medicine - [place] [address] [place] [phone] Abiodun Segura II, MD [address] [place] [address] documented as of this encounter Procedures Procedure Name Priority Date/Time Associated Diagnosis Comments CARDIOLOGY GENERIC 01/21/2016 8: 53 AM BROILER MANAGER documented in this encounter Results * CARDIOLOGY GENERIC (01/21/2016 8:53 AM BROILER MANAGER) 01/21/2016 8:53 AM BROILER MANAGER Narrative [facility] RAD[facility] - 01/21/2016 12:00 AM BROILER MANAGER ? LENA YOUNGBLOOD Ordering MD: AKIL BLUE MD HOSPITALIST ?? Acct: [id number] ?? Admit/Service Date: 01/21/16 Discharge Date: ?? : 1970 Pt Type: ADM IN ?? Sex: F Ord [facility] ?[address] ?Test Date: ?2016-01-21 ?? Pat Name: ? LENA YOUNGBLOOD ?Department: CARD ?? 40 ? Room: ? D6241 ?? Gender: ? Female ? Reservations Sales Supervisor: ?? CDN ?? : ?1970 ? Requested By: AKIL MIRZA AKIL MIRZA ?? Order Number: [id number] ?Reading MD: ?? Jermain Muñozpta ?Measurements ?? Intervals ?[place] ? Rate: ? 77 ? P: ?48 ?? RI: ? 188 ?QRS: ?17 ?? QRSD: ? 83 ? T: ?8 ?? QT: ? 405 ? QTc: ?460 ?Interpretive Statements ?? SINUS RHYTHM ?? NONSPECIFIC T-WAVE ABNORMALITY ?? Compared to ECG 01/17/2016 10:36:32 ?? Left ventricular hypertrophy no longer present ?? T-wave abnormality still present ?? LER MANAGER ? Procedure Note Jermain Soriano MD - 01/21/2016 LENA YOUNGBLOOD Ordering MD: AKIL BLUE MD HOSPITALIST Acct: [id number] Admit/Service Date: 01/21/16 Discharge Date: : 1970 Pt Type: ADM IN Sex: F Ord Site: [address] Test Date: 2016-01-21 Pat Name: LENA YOUNGBLOOD Department: CARD 40 Room: D6241 Gender: Female Reservations Sales Supervisor: PHILLIP : 1970 Requested By: AKIL LING Order Number: [id number] Reading MD: Jermain Soriano Measurements Intervals [place] Rate: 77 P: 48 RI: 188 QRS: 17 QRSD: 83 T: 8 QT: 405 QTc: 460 Interpretive Statements SINUS RHYTHM NONSPECIFIC T-WAVE ABNORMALITY Compared to ECG 01/17/2016 10:36:32 Left ventricular hypertrophy no longer present T-wave abnormality still present LER MANAGER us Generic Conversion Md [facility] Final Result [facility] documented in this encounter Visit Diagnoses Not on filedocumented in this encounter Care Teams Business Analysis Analyst Relationship Specialty Start Date End Date Jarred Rod MD PCP - General FAMILY PRACTICE 07/21/15 09/30/20 Crispin Gomez MD Three [facility]. [place] [address] [place] [address] [place] Grease Press Helper INTERNAL MEDICINE 07/21/15 documented as of this encounter
--- OUTSIDE RECORDS SUMMARY | 2024-03-02 22:33 | XMS_ITS | Encounter Summary ---
Author Organization [facility] Address [address] [place] [address]. [place], [place] [address] [place] [address] Care Team Providers Care Perfume Maker Name Role Phone Jarred Rod MD Primary Care Provider Unav ailable Shira Shi PA-C Primary Care Provider [phone] Jarred Rod MD Primary Care Provider Unav ailable Colton SILVEIRA MD, Abiodun L Primary Care Provider Jarred Rod MD Primary Care Provider Unav ailable Encounter Details Date Type Department Care Team (Latest Contact Info) Description 02/15/2017 Scan HEALTH INFO SRVCS Scanned, Documents Social [...] No / Unsure 01/24/2021 11:10 AM MANAGER SOCIAL MEDIA documented as of this encounter Functional Status [...] Contact Info) Description 03/14/2024 11:45 AM MANAGER SOCIAL MEDIA Office Visit [facility] [address] Marvin Mckeon MD Three [facility] [address] [place] [phone] 03/20/2024 11:30 AM MANAGER SOCIAL MEDIA Office Visit [facility] Family Medicine - [address] [address] Abiodun Segura II, MD [address] [place] [phone] documented as of this encounter Visit Diagnoses Not on filedocumented in this encounter Additional Health Concerns Infection Onset Date Last Indicated Resolved Time COVID-19 Rule Out 09/22/2019 09/22/2019 09/24/2019 11:13 PM CDT COVID-19 Rule Out 11/02/2019 11/02/2019 11/03/2019 3:22 PM CDT COVID-19 Rule Out 12/13/2019 12/13/2019 12/14/2019 3:06 PM CDT COVID-19 Confirmed 12/13/2019 12/13/2019 0 12:34 AM MANAGER SOCIAL MEDIA documented as of this encounter Care Teams Perfume Maker Relationship Specialty Start Date End Date Jarred Rod MD PCP - General FAMILY PRACTICE 07/21/15 09/30/20 Shira Shi, JESUSC [address] [place] [address] PCP - General PHYSICIAN OUT AND OUT CIGAR MAKER HAND 10/01/20 11/17/20 Jarred Rod MD [address] [place] [address] PCP - General FAMILY PRACTICE 11/18/20 12/05/20 Abiodun Segura II, MD [address] [place] [address] PCP - General FAMILY PRACTICE 12/06/20 01/16/21 Jarred Rod MD [address] [place] [address] PCP - General FAMILY PRACTICE 01/17/21 03/08/21 documented as of this encounter
--- OUTSIDE RECORDS SUMMARY | 2024-03-02 22:33 | XMS_ITS | Encounter Summary ---
Author Organization [facility] Address [address] [place] [address]. [place], [place] [address] [place] [address] Care Team Providers Care Cardiac Rehabilitation Specialist Name Role Phone Jarred Rod MD Primary Care Provider Unav ailable Crispin Gomez MD Unavailable [phone] Jarred Rod MD Primary Care Provider Unav ailable Jarred Rod MD Primary Care Provider Unav ailable Encounter Details Date Type Department Care Team (Late st Contact Info) Description 03/03/2013 Abstract [facility] [place] [address] Jarred Rod MD Social History Tobacco Use [...] (Late Contact Info) Description 03/14/2024 11:45 AM DIRECTOR CAREER Office Visit [facility]-[address] [address] Marvin Mckeon MD Three [facility] [address] [place] [address] 03/20/2024 11:30 AM DIRECTOR CAREER Office Visit [facility] Family Medicine - [place] 100 [place] [phone] Abiodun Segura II, MD [address] [place] [address] documented as of this encounter Visit Diagnoses Diagnosis Pain in soft tissues of limb Pain in limb documented in this encounter Care Teams Cardiac Rehabilitation Specialist Relationship Specialty Start Date End Date Jarred Rod MD PCP - General FAMILY PRACTICE 07/21/15 09/30/20 Jarred Rod MD PCP - General 05/05/14 07/20/15 Jarred Rod MD PCP - General 03/03/13 05/04/14 Crispin Gomez MD Three [facility]. [address] [place] [address] [place] Inspection Machine Tender INTERNAL MEDICINE 07/21/15 documented as of this encounter
--- OUTSIDE RECORDS SUMMARY | 2024-03-02 22:33 | XMS_ITS | Encounter Summary ---
Author Organization [facility] Address [address] [place] [address]. [place], [place] [address] [place] [address] Care Team Providers Care Security Guard Dispatcher Name Role Phone Jarred Rod MD Primary Care Provider Unav ailable Crispin Gomez MD Unavailable [phone] Shira Shi PA-C Primary Care Provider [phone] Jarred Rod MD Primary Care Provider Unav ailable Colton SILVEIRA MD, Abiodun L Primary Care Provider Jarred Rod MD Primary Care Provider Unav ailable Encounter Details Date Type Department Care Team (Latest Contact Info) Description 10/03/2016 Scan HEALTH INFO SRVCS Scanned, Documents Social [...] COVID-19? No / Unsure 01/24/2021 11:10 AM BENCH WORKER HELPER documented as of this encounter Functional [...] st Contact Info) Description 03/14/2024 11:45 AM BENCH WORKER HELPER Office Visit [facility] [address] Marvin Mckeon MD [facility] [address] [place] [phone] 03/20/2024 11:30 AM BENCH WORKER HELPER Office Visit [facility] Family Medicine - [address] [phone] Abiodun Segura II, MD [address] [place] [phone] documented as of this encounter Visit Diagnoses Not on filedocumented in this encounter Additional Health Concerns Infection Onset Date Last Indicated Resolved Time COVID-19 Rule Out 09/22/2019 09/22/2019 09/24/2019 11:13 PM CDT COVID-19 Rule Out 11/02/2019 11/02/2019 11/03/2019 3:22 PM CDT COVID-19 Rule Out 12/13/2019 12/13/2019 12/14/2019 3:06 PM CDT COVID-19 Confirmed 12/13/2019 12/13/2019 0 12:34 AM BENCH WORKER HELPER documented as of this encounter Care Teams Security Guard Dispatcher Relationship Specialty Start Date End Date Jarred Rod MD PCP - General FAMILY PRACTICE 07/21/15 09/30/20 Shira Shi PA-C [address] [place] [address] PCP - General PHYSICIAN ELECTRONIC CONSOLE DISPLAY OPERATOR 10/01/20 11/17/20 Jarred Rod MD [address] [place] [address] PCP - General FAMILY PRACTICE 11/18/20 12/05/20 Abiodun Segura II, MD [address] [place] [address] PCP - General FAMILY PRACTICE 12/06/20 01/16/21 Jarred Rod MD [address] [place] [address] PCP - General FAMILY PRACTICE 01/17/21 03/08/21 Crispin Gomez MD [facility] [address] [place] [address] [place] Sawsmith INTERNAL MEDICINE 07/21/15 documented as of this encounter
--- OUTSIDE RECORDS SUMMARY | 2024-03-02 22:33 | XMS_ITS | Encounter Summary ---
Author Organization [facility] Address [address] [place] [address]. [place] [address] [place] [address] Care Team Providers Care Metal Products Viewer Name Role Phone Jarred Rod MD Primary Care Provider Unav ailable Crispin Gomez MD Unavailable [phone] Jarred Rod MD Primary Care Provider Unav ailJarred [place] MD Primary Care Provider Unav ailable Jarred Rod MD Primary Care Provider Unav ailable Jarred Rod MD Primary Care Provider Unav ailable Encounter Details Date Type Department Care Team (Late st Contact Info) Description 02/02/2006 Abstract [facility] Med/Surg 3rd Floor [address] [place], [place] [address] Giacomo Galaviz MD Social History Tobacco Use [...] st Contact Info) Description 03/14/2024 11:45 AM LANDSCAPE ACCOUNT MANAGER Office Visit [facility] [address] Marvin [facility] MD [facility] [address] [place] [address] 03/20/2024 11:30 AM LANDSCAPE ACCOUNT MANAGER Office Visit [facility] Family Medicine - [place] 100 [place] [phone] Abiodun Segura II, MD 100 [place] [address] documented as of this encounter Visit Diagnoses Not on filedocumented in this encounter Care Teams Metal Products Viewer Relationship Specialty Start Date End Date Jarred Rod MD PCP - General FAMILY PRACTICE 07/21/15 09/30/20 Jarred Rod MD PCP - General 05/05/14 07/20/15 Jarred Rod MD PCP - General 03/03/13 05/04/14 Jarred Rod MD PCP - General 12/02/12 03/02/13 Jarred Rod MD PCP - General 11/07/12 12/01/12 Crispin Gomez MD Three [facility]. [address] [place] [address] [place] Community Nurse INTERNAL MEDICINE 07/21/15 documented as of this encounter
--- OUTSIDE RECORDS SUMMARY | 2024-03-02 22:33 | XMS_ITS | Encounter Summary ---
Author Organization [facility] Address [address] [place] [address]. [place], [place] [address] [place] [address] Care Team Providers Care Wooden Boat Builder Name Role Phone Jarred Rod MD Primary Care Provider Unav ailable Crispin Gomez MD Unavailable [phone] Shira Shi PA-C Primary Care Provider [phone] Jarred Rod MD Primary Care Provider Unav ailable Colton SILVEIRA MD, Abiodun L Primary Care Provider Jarred Rod MD Primary Care Provider Unav ailable Reason for Visit * Reason Comments Lab (SCAN) Encounter Details Date Type Department Care Team (Latest Contact Info) Description 07/08/2016 Scan HEALTH INFO SRVCS Scanned, Documents Lab [...] COVID-19? No / Unsure 01/24/2021 11:10 AM RADIAL DRILL PRESS SET UP OPERATOR documented as of this encounter Functional [...] st Contact Info) Description 03/14/2024 11:45 AM RADIAL DRILL PRESS SET UP OPERATOR Office Visit [facility] [address] Marvin Mckeon MD Three [facility] [address] [place] [address] 03/20/2024 11:30 AM RADIAL DRILL PRESS SET UP OPERATOR Office Visit [facility] Family Medicine - [place] 100 [place] [phone] Abiodun Segura II, MD [address] [place], [place] [phone] documented as of this encounter Procedures Procedure Name Priority Date/Time Associated Diagnosis Comments OUTSIDE LAB (SCAN ORDER) 07/08/2016 OUTSIDE LAB (SCAN ORDER) 07/08/2016 OUTSIDE LAB (SCAN ORDER) 07/08/2016 documented in this encounter Results * OUTSIDE LAB (SCAN) (07/08/2016) 07/08/2016 Narrative 07/08/2016 Ordered by an unspecified provider. us Documents Scanned SCANNING Final Result * OUTSIDE LAB (SCAN) (07/08/2016) 07/08/2016 Narrative 07/08/2016 Ordered by an unspecified provider. us Documents Scanned SCANNING Final Result * OUTSIDE LAB (SCAN) (07/08/2016) 07/08/2016 Narrative 07/08/2016 Ordered by an unspecified provider. us Documents [...] COVID-19 Confirmed 12/13/2019 12/13/2019 0 12:34 AM RADIAL DRILL PRESS SET UP OPERATOR documented as of this encounter Care Teams Wooden Boat Builder Relationship Specialty Start Date End Date Jarred Rod MD PCP - General FAMILY PRACTICE 07/21/15 09/30/20 Shira Shi PA-C [address] [place] [address] PCP - General PHYSICIAN CUSTOMER SUCCESS INTERN 10/01/20 11/17/20 Jarred Rod MD [address] [place] [address] PCP - General FAMILY PRACTICE 11/18/20 12/05/20 Abiodun Segura II, MD [address] [place] [address] PCP - General FAMILY PRACTICE 12/06/20 01/16/21 Jarred Rod MD [address] [place] [address] PCP - General FAMILY PRACTICE 01/17/21 03/08/21 Crispin Gomez MD Three [facility]. [address] [address] [place] Sewer Pipe Layer Helper INTERNAL MEDICINE 07/21/15 documented as of this encounter
--- OUTSIDE RECORDS SUMMARY | 2024-03-02 22:33 | XMS_ITS | Encounter Summary ---
Author Organization [facility] Address [address] [place] [address]. [place], [place] [address] [place] [address] Care Team Providers Care Field Sales Manager Name Role Phone Jarred Rod MD Primary Care Provider Unav ailable Crispin Gomez MD Unavailable [phone] Shira Shi PA-C Primary Care Provider [phone] Jarred Rod MD Primary Care Provider Unav ailable Colton SILVEIRA MD, Abiodun L Primary Care Provider Jarred Rod MD Primary Care Provider Unav ailable Reason for Visit * Reason Comments Lab (SCAN) Encounter Details Date Type Department Care Team (Latest Contact Info) Description 06/01/2016 Scan HEALTH INFO SRVCS Scanned, Documents Lab [...] COVID-19? No / Unsure 01/24/2021 11:10 AM UNLOADING CHECKER documented as of this encounter Functional Status [...] st Contact Info) Description 03/14/2024 11:45 AM UNLOADING CHECKER Office Visit [facility] [address] Marvin Mckeon MD Three [facility] [address] [place] [address] 03/20/2024 11:30 AM UNLOADING CHECKER Office Visit [facility] Family Medicine - [place] 100 [place] [address] Abiodun Segura II, MD 100 [place], [place] [phone] documented as of this encounter Procedures Procedure Name Priority Date/Time Associated Diagnosis Comments OUTSIDE LAB (SCAN ORDER) 06/01/2016 documented in this encounter Results * OUTSIDE LAB (SCAN) (06/01/2016) 06/01/2016 Narrative 06/01/2016 Ordered by an unspecified provider. us Documents [...] COVID-19 Confirmed 12/13/2019 12/13/2019 0 12:34 AM UNLOADING CHECKER documented as of this encounter Care Teams Field Sales Manager Relationship Specialty Start Date End Date Jarred Rod MD PCP - General FAMILY PRACTICE 07/21/15 09/30/20 Shira Shi PA-C [address] [place] [address] PCP - General PHYSICIAN THREAD REELER 10/01/20 11/17/20 Jarred Rod MD [address] [place] [address] PCP - General FAMILY PRACTICE 11/18/20 12/05/20 Abiodun Segura II, MD [address] [place] [address] PCP - General FAMILY PRACTICE 12/06/20 01/16/21 Jarred Rod MD [address] [place] [address] PCP - General FAMILY PRACTICE 01/17/21 03/08/21 Crispin Gomez MD [facility] [address] [place] [address] [place] Machine Guide Base Winder INTERNAL MEDICINE 07/21/15 documented as of this encounter
--- OUTSIDE RECORDS SUMMARY | 2024-03-02 22:33 | XMS_ITS | Encounter Summary ---
Author Organization [facility] Address [address] [place] [address]. [place] [address] [place] [address] Care Team Providers Care Fisher Eel Spear Name Role Phone Jarred Rod MD Primary Care Provider Unav Crispin Peres MD Unavailable [phone] Encounter Details Date Type Department Care Team (Late Contact Info) Description 01/21/2016 Abstract [facility] [place] [address] , MD Estella Cobb Wasseem, MD Social History Tobacco Use Types Packs/Day [...] (Late Contact Info) Description 03/14/2024 11:45 AM GEOLOGY TECHNICIAN Office Visit [facility] [phone] Marvin Mckeon MD [facility] [address] [place] [address] 03/20/2024 11:30 AM GEOLOGY TECHNICIAN Office Visit [facility] Family Medicine - [place] [address] [place] [phone] Abiodun Segura II, MD [address] [place] [address] documented as of this encounter Procedures Procedure Name Priority Date/Time Associated Diagnosis Comments BASIC METABOLIC PANEL STAT 01/22/2016 10:59 AM GEOLOGY TECHNICIAN POCT GLUCOSE - CORREA DOCKED DEVICE Routine 01/22/2016 5:53 AM GEOLOGY TECHNICIAN POCT GLUCOSE - CORREA DOCKED DEVICE Routine 01/21/2016 8:43 PM GEOLOGY TECHNICIAN BASIC METABOLIC PANEL STAT 01/21/2016 5:07 PM GEOLOGY TECHNICIAN POCT GLUCOSE - CORREA DOCKED DEVICE Routine 01/21/2016 4:25 PM GEOLOGY TECHNICIAN POCT GLUCOSE - CORREA DOCKED DEVICE Routine 01/21/2016 12:38 PM GEOLOGY TECHNICIAN BASIC METABOLIC PANEL Routine 01/21/2016 6:14 AM GEOLOGY TECHNICIAN HEPATIC FUNCTION PANEL TIMED 6 6:14 AM GEOLOGY TECHNICIAN CBC W/DIFF AUTOMATED Routine 01/21/2016 6:14 AM GEOLOGY TECHNICIAN POCT GLUCOSE - CORREA DOCKED DEVICE Routine 01/21/2016 6:13 AM GEOLOGY TECHNICIAN POCT GLUCOSE - CORREA DOCKED DEVICE Routine 01/20/2016 10:05 PM GEOLOGY TECHNICIAN POCT GLUCOSE - CORREA DOCKED DEVICE Routine 01/20/2016 5:22 PM GEOLOGY TECHNICIAN URINALYSIS WI REFLEX TO CULTURE Routine 01/20/2016 10:40 AM GEOLOGY TECHNICIAN POCT GLUCOSE - CORREA DOCKED DEVICE Routine 01/20/2016 10:35 AM GEOLOGY TECHNICIAN BASIC METABOLIC PANEL Routine 01/20/2016 6:37 AM GEOLOGY TECHNICIAN CBC W/DIFF AUTOMATED Routine 01/20/2016 6:37 AM GEOLOGY TECHNICIAN LIPASE Routine 01/20/2016 6:37 AM GEOLOGY TECHNICIAN POCT GLUCOSE - CORREA DOCKED DEVICE Routine 01/20/2016 6:00 AM GEOLOGY TECHNICIAN POCT GLUCOSE - CORREA DOCKED DEVICE Routine 01/20/2016 4:27 AM GEOLOGY TECHNICIAN POCT GLUCOSE - CORREA DOCKED DEVICE Routine 01/19/2016 9:29 PM GEOLOGY TECHNICIAN POCT GLUCOSE - CORREA DOCKED DEVICE Routine 01/19/2016 5:41 PM GEOLOGY TECHNICIAN POCT GLUCOSE - CORREA DOCKED DEVICE Routine 01/19/2016 12:58 PM GEOLOGY TECHNICIAN PROTHROMBIN TIME, VENOUS STAT 01/19/2016 11:50 AM GEOLOGY TECHNICIAN COMPREHENSIVE METABOLIC PANEL STAT 01/19/2016 11:50 AM GEOLOGY TECHNICIAN CBC W/DIFF AUTOMATED STAT 01/19/2016 11:50 AM GEOLOGY TECHNICIAN documented in this encounter Results * (ABNORMAL) BASIC METABOLIC PANEL (01/22/2016 10:59 AM GEOLOGY TECHNICIAN) GLUCOSE 266(H) 70 - 99 mg/dL 01/22/2016 12:40 PM GEOLOGY TECHNICIAN [facility] BUN 16 8 - 23 mg/dL 01/22/2016 12:40 PM GEOLOGY TECHNICIAN [facility] CREATININE S/P/B 0.86 0.60 - 1.10 mg/dL 01/22/2016 12:40 PM GEOLOGY TECHNICIAN [facility] SODIUM S/P/B 136 136 - 145 mmol/L 01/22/2016 12:40 PM GEOLOGY TECHNICIAN [facility] POTASSIUM S/P/B 4.2 3.5 - 5.1 mmol/L 01/22/2016 12:40 PM [facility] CHLORIDE S/P/B 102 98 - 107 mmol/L 01/22/2016 12:40 PM [facility] CO2 23 22 - 29 mmol/L 01/22/2016 12:40 PM [facility] CALCIUM S/P/B 8.2(L) 8.6 - 10.2 mg/dL 01/22/2016 12:40 PM [facility] ANION GAP 15 8 - 20 01/22/2016 12:40 PM [facility] EGFR NON-AFR. AMER. >60 >60 mL/min/1.7 3m'2 01/22/2016 12:40 PM [facility] EGFR AFR. AMER. >60 >60 mL/min/1.7 3m'2 01/22/2016 12:40 PM [facility] Comment: NOTE: eGFR is not calculated for patients <18 years of age. This is an estimated GFR (CKD EPI) and should not be used for calculating drug doses. 01/22/2016 10:5 9 AM GEOLOGY TECHNICIAN 01/22/2016 12:00 PM GEOLOGY TECHNICIAN us Generic Conversion Md [facility] Final R esult [facility] [address] [place] [address], * (ABNORMAL) POCT glucose (01/22/2016 5:53 AM GEOLOGY TECHNICIAN) GLUCOSE POC 146(H) 70 - 99 mg/dL 01/22/2016 8:27 AM [facility] LAB ORDERS INTERFACE 01/22/2016 5:53 AM GEOLOGY TECHNICIAN 01/22/2016 8:27 AM GEOLOGY TECHNICIAN us Generic Conversion Md [facility] POCT ORDERABLES - DEVIC E Final Result [facility] ORDERS INTERFACE US * (ABNORMAL) POCT glucose (01/21/2016 8:43 PM GEOLOGY TECHNICIAN) GLUCOSE POC 193(H) 70 - 99 mg/dL 01/21/2016 11:42 PM GEOLOGY TECHNICIAN [facility] ORDERS INTERFACE 01/21/2016 8:43 PM GEOLOGY TECHNICIAN 01/21/2016 11:42 PM GEOLOGY TECHNICIAN us Generic Conversion Md [facility] POCT ORDERABLES - DEVIC E Final Result Performing Organization Address City/[facility] Co de Phone Number [facility] ORDERS INTERFACE US * (ABNORMAL) BASIC METABOLIC PANEL (01/21/2016 5:07 PM GEOLOGY TECHNICIAN) GLUCOSE 239(H) 70 - 99 mg/dL 01/21/2016 7:14 PM [facility] BUN 26(H) 8 - 23 mg/dL 01/21/2016 7:14 PM [facility] CREATININE S/P/B 1.30(H) 0.60 - 1.10 mg/dL 01/21/2016 7:14 PM [facility] SODIUM S/P/B 139 136 - 145 mmol/L 01/21/2016 7:14 PM [facility] POTASSIUM S/P/B 4.4 3.5 - 5.1 mmol/L 01/21/2016 7:14 PM [facility] CHLORIDE S/P/B 101 98 - 107 mmol/L 01/21/2016 7:14 PM [facility] CO2 26 22 - 29 mmol/L 01/21/2016 7:14 PM [facility] CALCIUM S/P/B 8.7 8.6 - 10.2 mg/dL 01/21/2016 7:14 PM [facility] ANION GAP 16 8 - 20 01/21/2016 7:14 PM [facility] EGFR NON-AFR. AMER. 50(L) >60 mL/min/1.7 3m'2 01/21/2016 7:14 PM [facility] EGFR AFR. AMER. 58(L) >60 mL/min/1.7 3m'2 01/21/2016 7:14 PM [facility] Comment: NOTE: eGFR is not calculated for patients <18 years of age. This is an estimated GFR (CKD EPI) and should not be used for calculating drug doses. 01/21/2016 5:07 PM GEOLOGY TECHNICIAN 01/21/2016 6:08 PM GEOLOGY TECHNICIAN us Generic Conversion Md [facility] Final R esult Performing Organization Address [facility]/ZIP Co de Phone Number [facility] [address] [place] [address], * (ABNORMAL) POCT glucose (01/21/2016 4:25 PM GEOLOGY TECHNICIAN) GLUCOSE POC 225(H) 70 - 99 mg/dL 01/21/2016 5:32 PM GEOLOGY TECHNICIAN [facility] ORDERS INTERFACE 01/21/2016 4:25 PM GEOLOGY TECHNICIAN 01/21/2016 5:32 PM GEOLOGY TECHNICIAN us Generic Conversion Md [facility] POCT ORDERABLES - DEVIC E Final Result [facility] ORDERS INTERFACE US * (ABNORMAL) POCT glucose (01/21/2016 12:38 PM GEOLOGY TECHNICIAN) GLUCOSE POC 242(H) 70 - 99 mg/dL 01/21/2016 1:46 PM GEOLOGY TECHNICIAN [facility] ORDERS INTERFACE Comment:Will Repeat Test 01/21/2016 12:3 8 PM GEOLOGY TECHNICIAN 01/21/2016 1:46 PM GEOLOGY TECHNICIAN us Generic Conversion Md [facility] POCT ORDERABLES - DEVIC E Final Result Performing Organization Address City/State/[facility] Co de Phone Number [facility] ORDERS INTERFACE US * (ABNORMAL) HEPATIC FUNCTION PANEL (01/21/2016 6:14 AM GEOLOGY TECHNICIAN) BILIRUBIN TOTAL S/P/B 0.3 0.2 - 1.2 mg/dL 01/21/2016 12:45 PM GEOLOGY TECHNICIAN [facility] ALKALINE PHOSPHATASE S/P/B 110(H) 35 - 104 U/L 01/21/2016 12:45 PM GEOLOGY TECHNICIAN [facility] AST 20 0 - 32 U/L 01/21/2016 12:45 PM [facility] TOTAL PROTEIN S/P/B 7.8 6.4 - 8.3 g/dL 01/21/2016 12:45 PM [facility] ALBUMIN S/P/B 3.7 3.5 - 5.2 g/dL 01/21/2016 12:45 PM [facility] ALT 18 0 - 33 U/L 01/21/2016 12:45 PM [facility] BILIRUBIN DIRECT S/P/B <0.20 0.0 - 0.3 mg/dL 01/21/2016 12:45 PM [facility] BILIRUBIN INDIRECT S/P/B NOT CALCULATED 0.0 - 0.9 mg/dL 01/21/2016 12:45 PM [facility] GLOBULIN 4.1(H) 2.3 - 3.6 g/dL 01/21/2016 12:45 PM [facility] A/G RATIO 0.9(L) 1.0 - 2.0 01/21/2016 12:45 PM [facility] 01/21/2016 6:14 AM GEOLOGY TECHNICIAN 01/21/2016 12:30 PM GEOLOGY TECHNICIAN us Generic Conversion Md [facility] Final R esult [facility] [address] [place] [address], * (ABNORMAL) CBC W/DIFF AUTOMATED (01/21/2016 6:14 AM GEOLOGY TECHNICIAN) WBC 8.5 4.8 - 10.8 x10'3/uL 01/21/2016 7:52 AM [facility] RBC 3.74(L) 4.20 - 5.40 x10'6/uL 01/21/2016 7:52 AM [facility] HGB 11.6(L) 12.0 - 16.0 G/DL 01/21/2016 7:52 AM [facility] HCT 33.6(L) 38.0 - 48.0 % 01/21/2016 7:52 AM [facility] MCV 89.8 81.0 - 99.0 FL 01/21/2016 7:52 AM [facility] MCH 31.0 27.0 - 31.0 PG 01/21/2016 7:52 AM [facility] MCHC 34.5 32.0 - 36.0 G/DL 01/21/2016 7:52 AM [facility] RDW 12.4 11.5 - 14.5 % 01/21/2016 7:52 AM [facility] PLT 304 130 - 400 x10'3/uL 01/21/2016 7:52 AM [facility] MPV 11.0 9.3 - 12.2 FL 01/21/2016 7:52 AM [facility] IMMATURE GRANS % 0.5 0.0 - 1.0 % 01/21/2016 7:52 AM [facility] NEUTROPHILS % 55.3 43.0 - 65.0 % 01/21/2016 7:52 AM [facility] LYMPHOCYTES % 36.2 20.0 - 46.0 % 01/21/2016 7:52 AM [facility] MONOCYTES % 5.5 5.0 - 12.0 % 01/21/2016 7:52 AM [facility] EOSINOPHILS 1.9 1.0 - 3.0 % 01/21/2016 7:52 AM [facility] BASOPHILS 0.6 0.0 - 1.0 % 01/21/2016 7:52 AM [facility] WHOLE BLOOD SPECIMEN / Unknown 01/21/2016 6:14 AM GEOLOGY TECHNICIAN 01/21/2016 7:15 AM [facility] us Generic Conversion Md [facility] Final R esult Performing Organization Address City/State/[facility] Co de Phone Number [facility] [address] [place] [address], * (ABNORMAL) BASIC METABOLIC PANEL (01/21/2016 6:14 AM GEOLOGY TECHNICIAN) GLUCOSE 178(H) 70 - 99 mg/dL 01/21/2016 7:53 AM [facility] BUN 26(H) 8 - 23 mg/dL 01/21/2016 7:53 AM [facility] CREATININE S/P/B 1.34(H) 0.60 - 1.10 mg/dL 01/21/2016 7:53 AM [facility] SODIUM S/P/B 135(L) 136 - 145 mmol/L 01/21/2016 7:53 AM [facility] POTASSIUM S/P/B 4.1 3.5 - 5.1 mmol/L 01/21/2016 7:53 AM [facility] CHLORIDE S/P/B 98 98 - 107 mmol/L 01/21/2016 7:53 AM [facility] CO2 25 22 - 29 mmol/L 01/21/2016 7:53 AM [facility] CALCIUM S/P/B 9.2 8.6 - 10.2 mg/dL 01/21/2016 7:53 AM [facility] ANION GAP 16 8 - 20 01/21/2016 7:53 AM [facility] EGFR NON-AFR. AMER. 48(L) >60 mL/min/1.7 3m'2 01/21/2016 7:53 AM [facility] EGFR AFR. AMER. 56(L) >60 mL/min/1.7 3m'2 01/21/2016 7:53 AM [facility] Comment: NOTE: eGFR is not calculated for patients <18 years of age. This is an estimated GFR (CKD EPI) and should not be used for calculating drug doses. 01/21/2016 6:14 AM GEOLOGY TECHNICIAN 01/21/2016 7:15 AM GEOLOGY TECHNICIAN us Generic Conversion Md [facility] Final R esult Performing Organization Address City/[facility] Co de Phone Number [facility] [address] [place] [address], [place] [phone] * (ABNORMAL) POCT glucose (01/21/2016 6:13 AM GEOLOGY TECHNICIAN) [facility] GLUCOSE POC 166(H) 70 - 99 mg/dL 01/21/2016 8:02 AM GEOLOGY TECHNICIAN [facility] ORDERS INTERFACE 01/21/2016 6:13 AM GEOLOGY TECHNICIAN 01/21/2016 8:02 AM GEOLOGY TECHNICIAN us Generic Conversion Md [facility] POCT ORDERABLES - DEVIC E Final Result Performing Organization Address City/[facility]/ZIP Co de Phone Number [facility] ORDERS INTERFACE US * (ABNORMAL) POCT glucose (01/20/2016 10:05 PM GEOLOGY TECHNICIAN) GLUCOSE POC 167(H) 70 - 99 mg/dL 01/20/2016 11:27 PM GEOLOGY TECHNICIAN [facility] ORDERS INTERFACE 01/20/2016 10:0 5 PM GEOLOGY TECHNICIAN 01/20/2016 11:27 PM GEOLOGY TECHNICIAN us Generic Conversion Md [facility] POCT ORDERABLES - DEVIC E Final Result Performing Organization Address City/[facility]/ZIP Co de Phone Number [facility] ORDERS INTERFACE US * (ABNORMAL) POCT glucose (01/20/2016 5:22 PM GEOLOGY TECHNICIAN) GLUCOSE POC 243(H) 70 - 99 mg/dL 01/20/2016 6:25 PM GEOLOGY TECHNICIAN [facility] ORDERS INTERFACE 01/20/2016 5:22 PM GEOLOGY TECHNICIAN 01/20/2016 6:25 PM GEOLOGY TECHNICIAN us Generic Conversion Md [facility] POCT ORDERABLES - DEVIC E Final Result Performing Organization Address [facility] de Phone Number [facility] ORDERS INTERFACE US * (ABNORMAL) URINALYSIS WI REFLEX TO CULTURE (01/20/2016 10:40 AM GEOLOGY TECHNICIAN) Pathologist [facility] SOURCE (FLUID) URINE CLEAN CATCH 01/20/2016 11:56 AM [facility] COLOR (U) YELLOW 01/20/2016 2:02 PM [facility] TRANSPARENCY CLEAR 01/20/2016 2:02 PM [facility] SPECIFIC GRAVITY (U) 1.013 1.001 - 1.030 01/20/2016 2:02 PM [facility] U PH 9.0 5.0 - 9.0 01/20/2016 2:02 PM [facility] LEUKOCYTES (U) NEGATIVE NEGATIVE 01/20/2016 2:02 PM [facility] NITRITES NEGATIVE NEGATIVE 01/20/2016 2:02 PM [facility] PROTEIN (U) 100(H) <30 MG/DL 01/20/2016 2:02 PM [facility] URINE GLUCOSE NEGATIVE NEGATIVE MG/DL 01/20/2016 2:02 PM [facility] KETONES MG/DL (U) NEGATIVE NEGATIVE MG/DL 01/20/2016 2:02 PM [facility] UROBILINOGEN NEGATIVE NEGATIVE MG/DL 01/20/2016 2:02 PM [facility] BILIRUBIN (U) NEGATIVE NEGATIVE MG/DL 01/20/2016 2:02 PM [facility] BLOOD (U) NEGATIVE NEGATIVE 01/20/2016 2:02 PM [facility] CULTURE & SENSITIVITY INDICATED? CULTURE IS NOT INDICATED 01/20/2016 2:02 PM [facility] SQUAMOUS EPITHELIALS MODERATE /LPF 01/20/2016 2:02 PM [facility] WBC/HPF <1 <6 /HPF 01/20/2016 2:02 PM [facility] RBC/HPF <1 <6 /HPF 01/20/2016 2:02 PM [facility] 01/20/2016 10:4 0 AM GEOLOGY TECHNICIAN 01/20/2016 12:13 PM GEOLOGY TECHNICIAN us Generic Conversion Md [facility] URINE ORDERABLES Final Result [facility] [address] [place] [address], [place] [phone] * (ABNORMAL) POCT glucose (01/20/2016 10:35 AM GEOLOGY TECHNICIAN) GLUCOSE POC 225(H) 70 - 99 mg/dL 01/20/2016 12:03 PM GEOLOGY TECHNICIAN [facility] ORDERS INTERFACE 01/20/2016 10:3 5 AM GEOLOGY TECHNICIAN 01/20/2016 12:03 PM GEOLOGY TECHNICIAN us Generic Conversion Md [facility] POCT ORDERABLES - DEVIC E Final Result [facility] ORDERS INTERFACE US * LIPASE (01/20/2016 6:37 AM GEOLOGY TECHNICIAN) LIPASE 18 13 - 60 U/L 01/20/2016 6:57 PM GEOLOGY TECHNICIAN [facility] SERUM OR PLASMA SPECIMEN / Unknown 01/20/2016 6:37 AM GEOLOGY TECHNICIAN 01/20/2016 6:38 PM GEOLOGY TECHNICIAN us Generic Conversion Md [facility] Final R esult Performing Organization Address City/[facility]/ZIP Co de Phone Number [facility] [address] [place] [address], * (ABNORMAL) CBC W/DIFF AUTOMATED (01/20/2016 6:37 AM GEOLOGY TECHNICIAN) WBC 10.9(H) 4.8 - 10.8 x10'3/uL 01/20/2016 8:17 AM [facility] RBC 3.69(L) 4.20 - 5.40 x10'6/uL 01/20/2016 8:17 AM [facility] HGB 11.2(L) 12.0 - 16.0 G/DL 01/20/2016 8:17 AM [facility] HCT 32.9(L) 38.0 - 48.0 % 01/20/2016 8:17 AM [facility] MCV 89.2 81.0 - 99.0 FL 01/20/2016 8:17 AM [facility] MCH 30.4 27.0 - 31.0 PG 01/20/2016 8:17 AM [facility] MCHC 34.0 32.0 - 36.0 G/DL 01/20/2016 8:17 AM [facility] RDW 12.6 11.5 - 14.5 % 01/20/2016 8:17 AM [facility] PLT 299 130 - 400 x10'3/uL 01/20/2016 8:17 AM [facility] MPV 10.8 9.3 - 12.2 FL 01/20/2016 8:17 AM [facility] IMMATURE GRANS % 0.3 0.0 - 1.0 % 01/20/2016 8:17 AM [facility] NEUTROPHILS % 65.6(H) 43.0 - 65.0 % 01/20/2016 8:17 AM [facility] LYMPHOCYTES % 26.7 20.0 - 46.0 % 01/20/2016 8:17 AM [facility] MONOCYTES % 5.3 5.0 - 12.0 % 01/20/2016 8:17 AM [facility] EOSINOPHILS 1.6 1.0 - 3.0 % 01/20/2016 8:17 AM [facility] BASOPHILS 0.5 0.0 - 1.0 % 01/20/2016 8:17 AM [facility] WHOLE BLOOD SPECIMEN / Unknown 01/20/2016 6:37 AM GEOLOGY TECHNICIAN 01/20/2016 7:40 AM [facility] us Generic Conversion Md [facility] Final R esult [facility] [address] [place] [address], [place] [phone] * (ABNORMAL) BASIC METABOLIC PANEL (01/20/2016 6:37 AM GEOLOGY TECHNICIAN) GLUCOSE 111(H) 70 - 99 mg/dL 01/20/2016 9:16 AM [facility] BUN 16 8 - 23 mg/dL 01/20/2016 9:16 AM [facility] CREATININE S/P/B 0.80 0.60 - 1.10 mg/dL 01/20/2016 9:16 AM [facility] SODIUM S/P/B 136 136 - 145 mmol/L 01/20/2016 9:16 AM [facility] POTASSIUM S/P/B 3.7 3.5 - 5.1 mmol/L 01/20/2016 9:16 AM [facility] CHLORIDE S/P/B 99 98 - 107 mmol/L 01/20/2016 9:16 AM [facility] CO2 24 22 - 29 mmol/L 01/20/2016 9:16 AM [facility] CALCIUM S/P/B 9.4 8.6 - 10.2 mg/dL 01/20/2016 9:16 AM [facility] ANION GAP 17 8 - 20 01/20/2016 9:16 AM [facility] EGFR NON-AFR. AMER. >60 >60 mL/min/1.7 3m'2 01/20/2016 9:16 AM [facility] EGFR AFR. AMER. >60 >60 mL/min/1.7 '2 01/20/2016 9:16 AM [facility] Comment: NOTE: eGFR is not calculated for patients <18 years of age. This is an estimated GFR (CKD EPI) and should not be used for calculating drug doses. 01/20/2016 6:37 AM GEOLOGY TECHNICIAN 01/20/2016 7:40 AM GEOLOGY TECHNICIAN us Generic Conversion Md [facility] Final R esult [facility] [address] [place] [address], * (ABNORMAL) POCT glucose (01/20/2016 6:00 AM GEOLOGY TECHNICIAN) GLUCOSE POC 112(H) 70 - 99 mg/dL 01/20/2016 7:03 AM GEOLOGY TECHNICIAN [facility] ORDERS INTERFACE 01/20/2016 6:00 AM GEOLOGY TECHNICIAN 01/20/2016 7:03 AM GEOLOGY TECHNICIAN us Generic Conversion Md [facility] POCT ORDERABLES - DEVIC E Final Result Performing Organization Address [facility] Co de Phone Number [facility] ORDERS INTERFACE US * (ABNORMAL) POCT glucose (01/20/2016 4:27 AM GEOLOGY TECHNICIAN) GLUCOSE POC 122(H) 70 - 99 mg/dL 01/20/2016 7:04 AM GEOLOGY TECHNICIAN [facility] ORDERS INTERFACE 01/20/2016 4:27 AM GEOLOGY TECHNICIAN 01/20/2016 7:04 AM GEOLOGY TECHNICIAN us Generic Conversion Md [facility] POCT ORDERABLES - DEVIC E Final Result Performing Organization Address [facility] de Phone Number [facility] ORDERS INTERFACE US * (ABNORMAL) POCT glucose (01/19/2016 9:29 PM GEOLOGY TECHNICIAN) GLUCOSE POC 203(H) 70 - 99 mg/dL 01/20/2016 1:15 AM GEOLOGY TECHNICIAN [facility] ORDERS INTERFACE 01/19/2016 9:29 PM GEOLOGY TECHNICIAN 01/20/2016 1:15 AM GEOLOGY TECHNICIAN us Generic Conversion Md [facility] POCT ORDERABLES - DEVIC E Final Result Performing Organization Address [facility] Co de Phone Number [facility] ORDERS INTERFACE US * (ABNORMAL) POCT glucose (01/19/2016 5:41 PM GEOLOGY TECHNICIAN) GLUCOSE POC 233(H) 70 - 99 mg/dL 01/19/2016 7:33 PM GEOLOGY TECHNICIAN [facility] ORDERS INTERFACE Comment:Glycemic MGT Protoco l 01/19/2016 5:41 PM GEOLOGY TECHNICIAN 01/19/2016 7:32 PM GEOLOGY TECHNICIAN us Generic Conversion Md RYDER POCT ORDERABLES - DEVIC E Final Result [facility] ORDERS INTERFACE US * (ABNORMAL) POCT glucose (01/19/2016 12:58 PM GEOLOGY TECHNICIAN) GLUCOSE POC 226(H) 70 - 99 mg/dL 01/19/2016 2:01 PM GEOLOGY TECHNICIAN [facility] ORDERS INTERFACE 01/19/2016 12:5 8 PM GEOLOGY TECHNICIAN 01/19/2016 2:01 PM GEOLOGY TECHNICIAN us Generic Conversion Md RYDER POCT ORDERABLES - DEVIC E Final Result Performing Organization Address [facility] Co de Phone Number [facility] ORDERS INTERFACE US * PROTIME/INR, VENOUS (01/19/2016 11:50 AM GEOLOGY TECHNICIAN) PROTIME 11.4 9.6 - 12.2 SEC 01/19/2016 1:35 PM GEOLOGY TECHNICIAN [facility] INR 1.0 01/19/2016 1:35 PM GEOLOGY TECHNICIAN [facility] Comment: Recommended INR Therapeutic Goals: ??2.0-3.0 Routine Therapy ??2.5-3.5 Mechanical Prosthetic Valves (High Risk) ??3.0-4.0 Acute CA (to prevent Systemic Embolism) The INR is used only for patients on stable oral anticoagulant therapy. It makes no significant contribution to the diagnosis or treatment of patients whose Protime is prolonged for other reasons. 01/19/2016 11:5 0 AM GEOLOGY TECHNICIAN 01/19/2016 1:03 PM GEOLOGY TECHNICIAN us Generic Conversion Md RYDER LABORATORY Final R esult Performing Organization Address [facility] Co de Phone Number [facility] [address] [id number], [place] [phone] * (ABNORMAL) COMPREHENSIVE METABOLIC PANEL (01/19/2016 11:50 AM GEOLOGY TECHNICIAN) GLUCOSE 214(H) 70 - 99 mg/dL 01/19/2016 1:49 PM [facility] BUN 15 8 - 23 mg/dL 01/19/2016 1:49 PM [facility] CREATININE S/P/B 0.59(L) 0.60 - 1.10 mg/dL 01/19/2016 1:49 PM [facility] SODIUM S/P/B 138 136 - 145 mmol/L 01/19/2016 1:49 PM [facility] POTASSIUM S/P/B 4.5 3.5 - 5.1 mmol/L 01/19/2016 1:49 PM [facility] CHLORIDE S/P/B 98 98 - 107 mmol/L 01/19/2016 1:49 PM [facility] CO2 27 22 - 29 mmol/L 01/19/2016 1:49 PM [facility] BILIRUBIN TOTAL S/P/B 0.3 0.2 - 1.2 mg/dL 01/19/2016 1:49 PM [facility] CALCIUM S/P/B 9.5 8.6 - 10.2 mg/dL 01/19/2016 1:49 PM [facility] ALKALINE PHOSPHATASE S/P/B 116(H) 35 - 104 U/L 01/19/2016 1:49 PM [facility] AST 15 0 - 32 U/L 01/19/2016 1:49 PM [facility] TOTAL PROTEIN S/P/B 8.3 6.4 - 8.3 g/dL 01/19/2016 1:49 PM [facility] ALBUMIN S/P/B 3.8 3.5 - 5.2 g/dL 01/19/2016 1:49 PM [facility] ALT 21 0 - 33 U/L 01/19/2016 1:49 PM [facility] GLOBULIN 4.5(H) 2.3 - 3.6 g/dL 01/19/2016 1:49 PM [facility] A/G RATIO 0.8(L) 1.0 - 2.0 01/19/2016 1:49 PM [facility] ANION GAP 18 8 - 20 01/19/2016 1:49 PM [facility] EGFR NON-AFR. AMER. >60 >60 mL/min/1.7 3m'2 01/19/2016 1:49 PM [facility] EGFR AFR. AMER. >60 >60 mL/min/1.7 3m'2 01/19/2016 1:49 PM [facility] Comment: NOTE: eGFR is not calculated for patients <18 years of age. This is an estimated GFR (CKD EPI) and should not be used for calculating drug doses. 01/19/2016 11:5 0 AM GEOLOGY TECHNICIAN 01/19/2016 1:03 PM GEOLOGY TECHNICIAN us Generic Conversion Md [facility] Final R esult [facility] [address] [place] [address], * (ABNORMAL) CBC W/DIFF AUTOMATED (01/19/2016 11:50 AM GEOLOGY TECHNICIAN) WBC 10.9(H) 4.8 - 10.8 x10'3/uL 01/19/2016 1:14 PM [facility] RBC 3.95(L) 4.20 - 5.40 x10'6/uL 01/19/2016 1:14 PM [facility] HGB 12.0 12.0 - 16.0 G/DL 01/19/2016 1:14 PM [facility] HCT 35.0(L) 38.0 - 48.0 % 01/19/2016 1:14 PM [facility] MCV 88.6 81.0 - 99.0 FL 01/19/2016 1:14 PM [facility] MCH 30.4 27.0 - 31.0 PG 01/19/2016 1:14 PM [facility] MCHC 34.3 32.0 - 36.0 G/DL 01/19/2016 1:14 PM [facility] RDW 12.2 11.5 - 14.5 % 01/19/2016 1:14 PM [facility] PLT 284 130 - 400 x10'3/uL 01/19/2016 1:14 PM [facility] MPV 11.0 9.3 - 12.2 FL 01/19/2016 1:14 PM [facility] IMMATURE GRANS % 0.2 0.0 - 1.0 % 01/19/2016 1:14 PM [facility] NEUTROPHILS % 78.6(H) 43.0 - 65.0 % 01/19/2016 1:14 PM [facility] LYMPHOCYTES % 16.4(L) 20.0 - 46.0 % 01/19/2016 1:14 PM [facility] MONOCYTES % 3.5(L) 5.0 - 12.0 % 01/19/2016 1:14 PM [facility] EOSINOPHILS 0.9(L) 1.0 - 3.0 % 01/19/2016 1:14 PM [facility] BASOPHILS 0.4 0.0 - 1.0 % 01/19/2016 1:14 PM [facility] WHOLE BLOOD SPECIMEN / Unknown 01/19/2016 11:50 AM GEOLOGY TECHNICIAN 01/19/2016 1:03 PM GEOLOGY TECHNICIAN us Generic Conversion Md [facility] Final R esult [facility] [address] [place] [address], documented in this encounter Visit Diagnoses Diagnosis Acute kidney failure (CMS/HCC) Acute kidney failure, unspecified documented in this encounter Care Teams Fisher Eel Spear Relationship Specialty Start Date End Date Jarred Rod MD PCP - General FAMILY PRACTICE 07/21/15 09/30/20 Crispin Gomez MD [facility]. [id number] [place] [address] [place] Instrument Mechanics Supervisor INTERNAL MEDICINE 07/21/15 documented as of this encounter
--- OUTSIDE RECORDS SUMMARY | 2024-03-02 22:33 | XMS_ITS | Encounter Summary ---
Author Organization [facility] Address [address] [place] [address]. [place] [address] [place] [address] Care Team Providers Care Dispatch Officer Name Role Phone Jarred Rod MD Primary Care Provider Unav ailable Crispin Gomez MD Unavailable [phone] Jarred Rod MD Primary Care Provider Unav ailJarred Hayden MD Primary Care Provider Unav ailable Jarred Rod MD Primary Care Provider Unav ailable Jarred Rod MD Primary Care Provider Unav ailable Encounter Details Date Type Department Care Team (Late st Contact Info) Description 01/29/2006 [place] [address] Giacomo Galaviz MD Social History [...] st Contact Info) Description 03/14/2024 11:45 AM NURSE ORTHOPEDIC Office Visit [facility] [address] Marvin Mckeon MD [facility] [address] [place] [address] 03/20/2024 11:30 AM NURSE ORTHOPEDIC Office Visit [facility] Family Medicine - [place] 100 [place] [phone] Abiodun Segura II, MD [address] [place] [address] documented as of this encounter Visit Diagnoses Not on filedocumented in this encounter Care Teams Dispatch Officer Relationship Specialty Start Date End Date Jarred Rod MD PCP - General FAMILY PRACTICE 07/21/15 09/30/20 Jarred Rod MD PCP - General 05/05/14 07/20/15 Jarred Rod MD PCP - General 03/03/13 05/04/14 Jarred Rod MD PCP - General 12/02/12 03/02/13 Jarred Rod MD PCP - General 11/07/12 12/01/12 Crispin Gomez MD [facility] [address] [place] [address] [place] Button Cutting Machine Operator INTERNAL MEDICINE 07/21/15 documented as of this encounter
--- OUTSIDE RECORDS SUMMARY | 2024-03-02 22:33 | XMS_ITS | Encounter Summary ---
Author Organization [facility] Address [address] [place] [address]. [place] [address] [place] [address] Care Team Providers Care Computer Aide Name Role Phone Jarred Rod MD Primary Care Provider UnaCrispin Myers MD Unavailable [phone] Encounter Details Date Type Department Care Team (Late st Contact Info) Description 01/10/2016 Abstract [facility] [place] [address] Joel Santiago MD [address] [place] [address] [id number] Social History Tobacco Use Types Packs/Day Years [...] st Contact Info) Description 03/14/2024 11:45 AM SUPERVISOR CELL MAINTENANCE Office Visit [facility] [address] Marvin Mckeon MD Three [facility] [address] [place] [address] 03/20/2024 11:30 AM SUPERVISOR CELL MAINTENANCE Office Visit [facility] Family Medicine - [place] 100 [place] [address] Abiodun Segura II, MD 100 [place] [address] documented as of this encounter Visit Diagnoses Diagnosis Osteomyelitis ([facility]) Unspecified osteomyelitis, site unspecified documented in this encounter Care Teams Computer Aide Relationship Specialty Start Date End Date Jarred Rod MD PCP - General FAMILY PRACTICE 07/21/15 09/30/20 Crispin Gomez MD Three [facility] [address] [place] [address] [place] Salesforce Administrator INTERNAL MEDICINE 07/21/15 documented as of this encounter
--- OUTSIDE RECORDS SUMMARY | 2024-03-02 22:33 | XMS_ITS | Encounter Summary ---
Author Organization [facility] Address [address] [place] [address]. [place] [address] [place] [address] Care Team Providers Care Milk Sampler Name Role Phone Jarred Rod MD Primary Care Provider Unav ailable Crispin Gomez MD Unavailable [phone] Jarred Rod MD Primary Care Provider Unav ailJarred Hayden MD Primary Care Provider Unav ailable Jarred Rod MD Primary Care Provider Unav ailable Jarred Rod MD Primary Care Provider Unav ailable Encounter Details Date Type Department Care Team (Late st Contact Info) Description 05/14/[address] [facility] ONE [place], [place] [id number] Giacomo Galaviz MD Social History Tobacco Use [...] st Contact Info) Description 03/14/2024 11:45 AM CONSULTING ACTUARY Office Visit [facility] [address] Marvin Mckeon MD Three [facility] [address] [place] [address] 03/20/2024 11:30 AM CONSULTING ACTUARY Office Visit [facility] Family Medicine - [place] 100 [place] [phone] Abiodun Segura II, MD 100 [place] [address] documented as of this encounter Visit Diagnoses Not on filedocumented in this encounter Care Teams Milk Sampler Relationship Specialty Start Date End Date Jarred Rod MD PCP - General FAMILY PRACTICE 07/21/15 09/30/20 Jarred Rod MD PCP - General 05/05/14 07/20/15 Jarred Rod MD PCP - General 03/03/13 05/04/14 Jarred Rod MD PCP - General 12/02/12 03/02/13 Jarred Rod MD PCP - General 11/07/12 12/01/12 Crispin Gomez MD Three [facility] [place] [address] [place] Human Resources Manager INTERNAL MEDICINE 07/21/15 documented as of this encounter
--- OUTSIDE RECORDS SUMMARY | 2024-03-02 22:33 | XMS_ITS | Encounter Summary ---
Author Organization [facility] Address [address] [place] [address]. [place] [address] [place] [address] Care Team Providers Care Steel Checker Name Role Phone Jarred Rod MD Primary Care Provider Unav ailable Crispin Gomez MD Unavailable [phone] Jarred Rod MD Primary Care Provider Unav ailJarred Hayden MD Primary Care Provider Unav ailable Jarred Rod MD Primary Care Provider Unav ailable Jarred Rod MD Primary Care Provider Unav ailable Encounter Details Date Type Department Care Team (Late st Contact Info) Description 01/08/2006 Abstract [facility] ONE [place], [place] [id number] Giacomo Galaviz MD Social History Tobacco Use [...] st Contact Info) Description 03/14/2024 11:45 AM IMPLEMENTATION COORDINATOR Office Visit [facility] [address] Marvin Mckeon MD [address] [facility] [address] [place] [address] 03/20/2024 11:30 AM IMPLEMENTATION COORDINATOR Office Visit [facility] Family Medicine - [place] 100 [place] [phone] Abiodun Seugra II, MD 100 [place] [address] documented as of this encounter Visit Diagnoses Not on filedocumented in this encounter Care Teams Steel Checker Relationship Specialty Start Date End Date Jarred Rod MD PCP - General FAMILY PRACTICE 07/21/15 09/30/20 Jarred Rod MD PCP - General 05/05/14 07/20/15 Jarred Rod MD PCP - General 03/03/13 05/04/14 Jarred Rod MD PCP - General 12/02/12 03/02/13 Jarred Rod MD PCP - General 11/07/12 12/01/12 Crispin Gomez MD Three [facility]0 [place] [address] [place] Cloth Packer INTERNAL MEDICINE 07/21/15 documented as of this encounter
--- OUTSIDE RECORDS SUMMARY | 2024-03-02 22:33 | XMS_ITS | Encounter Summary ---
Author Organization [facility] Address [address] [place] [address]. [place] [address] [place] [address] Care Team Providers Care Cardiology Consultants Name Role Phone Jarred Rod MD Primary Care Provider Unav ailable Crispin Gomez MD Unavailable [phone] Jarred Rod MD Primary Care Provider Unav ailJarred Hayden MD Primary Care Provider Unav ailable Jarred Rod MD Primary Care Provider Unav ailable Jarred Rod MD Primary Care Provider Unav ailable Encounter Details Date Type Department Care Team (Late st Contact Info) Description 11/17/[address] [facility] [place] [address] Giacomo Galaviz MD Social History [...] Contact Info) Description 03/14/2024 11:45 AM SALES REPRESENTATIVE GAS SERVICE Office Visit [facility] [address] Mavrin Mckeon MD [address] [facility] [address] [place] [address] 03/20/2024 11:30 AM SALES REPRESENTATIVE GAS SERVICE Office Visit [facility] Family Medicine - [place] 100 [place] [phone] Abiodun Segura II, MD 100 [place] [address] documented as of this encounter Visit Diagnoses Not on filedocumented in this encounter Care Teams Cardiology Consultants Relationship Specialty Start Date End Date Jarred Rod MD PCP - General FAMILY PRACTICE 07/21/15 09/30/20 Jarred Rod MD PCP - General 05/05/14 07/20/15 Jarred Rod MD PCP - General 03/03/13 05/04/14 Jarred Rod MD PCP - General 12/02/12 03/02/13 Jarred Rod MD PCP - General 11/07/12 12/01/12 Crispin Gomez MD [facility] [place] [address] [place] Automotive Service Writer INTERNAL MEDICINE 07/21/15 documented as of this encounter
--- OUTSIDE RECORDS SUMMARY | 2024-03-02 22:33 | XMS_ITS | Encounter Summary ---
Author Organization [facility] Address [address] [place] [address]. [place] [address] [place] [address] Care Team Providers Care Fatback Trimmer Name Role Phone Jarred Rod MD Primary Care Provider Unav ailable Crispin Gomez MD Unavailable [phone] Jarred Rod MD Primary Care Provider Unav ailJarred Hayden MD Primary Care Provider Unav ailable Jarred Rod MD Primary Care Provider Unav ailable Jarred Rod MD Primary Care Provider Unav ailable Encounter Details Date Type Department Care Team (Late st Contact Info) Description 08/26/2003 Abstract [facility] Med/Surg 3rd Floor [address] [place], [place] [address] Giacomo Galaviz MD Social History Tobacco Use [...] st Contact Info) Description 03/14/2024 11:45 AM CHAIR MECHANIC Office Visit [facility] [address] Marvin Mckeon MD Three [facility] [address] [place] [address] 03/20/2024 11:30 AM CHAIR MECHANIC Office Visit [facility] Family Medicine - [place] 100 [place] [phone] Abiodun Segura II, MD 100 [place] [address] documented as of this encounter Visit Diagnoses Not on filedocumented in this encounter Care Teams Fatback Trimmer Relationship Specialty Start Date End Date Jarred Rod MD PCP - General FAMILY PRACTICE 07/21/15 09/30/20 Jarred Rod MD PCP - General 05/05/14 07/20/15 Jarred Rod MD PCP - General 03/03/13 05/04/14 Jarred Rod MD PCP - General 12/02/12 03/02/13 Jarred Rod MD PCP - General 11/07/12 12/01/12 Crispin Gomez MD Three [facility]. DAV[address] [place] [address] [place] Computer Art Instructor INTERNAL MEDICINE 07/21/15 documented as of this encounter
--- OUTSIDE RECORDS SUMMARY | 2024-03-02 22:33 | XMS_ITS | Encounter Summary ---
Author Organization [facility] Address [address] [place] [address]. [place], [place] [address] [place] [address] Care Team Providers Care Photography Sales Associate Name Role Phone Jarred Rod MD Primary Care Provider Unav ailable Crispin Gomez MD Unavailable [phone] Shira Shi PA-C Primary Care Provider [phone] Jarred Rod MD Primary Care Provider Unav ailable Colton SILVEIRA MD, Abiodun L Primary Care Provider Jarred Rod MD Primary Care Provider Unav ailable Encounter Details Date Type Department Care Team (Latest Contact Info) Description 04/06/2016 Scan HEALTH INFO SRVCS Scanned, Documents Social [...] COVID-19? No / Unsure 01/24/2021 11:10 AM MUSIC CRITIC documented as of this encounter Functional Status [...] Contact Info) Description 03/14/2024 11:45 AM MUSIC CRITIC Office Visit [facility] [address] Marvin Mckeon MD [facility] [address] [place] [phone] 03/20/2024 11:30 AM MUSIC CRITIC Office Visit [facility] Family Medicine - [address] [phone] Abiodun Segura II, MD [address] [place] [phone] documented as of this encounter Visit Diagnoses Not on filedocumented in this encounter Additional Health Concerns Infection Onset Date Last Indicated Resolved Time COVID-19 Rule Out 09/22/2019 09/22/2019 09/24/2019 11:13 PM CDT COVID-19 Rule Out 11/02/2019 11/02/2019 11/03/2019 3:22 PM CDT COVID-19 Rule Out 12/13/2019 12/13/2019 12/14/2019 3:06 PM CDT COVID-19 Confirmed 12/13/2019 12/13/2019 0 12:34 AM MUSIC CRITIC documented as of this encounter Care Teams Photography Sales Associate Relationship Specialty Start Date End Date Jarred Rod MD PCP - General FAMILY PRACTICE 07/21/15 09/30/20 Shira Shi PA-C [address] [place] [address] PCP - General PHYSICIAN COSMETIC SALES CONSULTANT 10/01/20 11/17/20 Jarred Rod MD [address] [place] [address] PCP - General FAMILY PRACTICE 11/18/20 12/05/20 Abiodun Sgeura II, MD [address] [place] [address] PCP - General FAMILY PRACTICE 12/06/20 01/16/21 Jarred Rod MD [address] [place] [address] PCP - General FAMILY PRACTICE 01/17/21 03/08/21 Crispin Gomez MD [facility] [address] [place] [address] [place] Mine Wirer INTERNAL MEDICINE 07/21/15 documented as of this encounter
--- OUTSIDE RECORDS SUMMARY | 2024-03-02 22:33 | XMS_ITS | Encounter Summary ---
Author Organization [facility] Address [address] [place] [address]. [place], [place] [address] [place] [address] Care Team Providers Care Sap Bobj Developer Name Role Phone Jarred Rod MD Primary Care Provider Unav ailable Shira Shi PA-C Primary Care Provider [phone] Jarred Rod MD Primary Care Provider Unav ailable Colton SILVEIRA MD, Abiodun L Primary Care Provider Jarred Rod MD Primary Care Provider Unav ailable Encounter Details Date Type Department Care Team (Latest Contact Info) Description 05/10/2017 Scan HEALTH INFO SRVCS Scanned, Documents Social [...] COVID-19? No / Unsure 01/24/2021 11:10 AM HEEL SCOURER documented as of this encounter Functional Status [...] st Contact Info) Description 03/14/2024 11:45 AM HEEL SCOURER Office Visit [facility] [address] Marvin Mckeon MD Three [facility] [address] [place] [phone] 03/20/2024 11:30 AM HEEL SCOURER Office Visit [facility] Family Medicine - [address] [address] Abiodun Segura II, MD [address] [place] [phone] documented as of this encounter Visit Diagnoses Not on filedocumented in this encounter Additional Health Concerns Infection Onset Date Last Indicated Resolved Time COVID-19 Rule Out 09/22/2019 09/22/2019 09/24/2019 11:13 PM CDT COVID-19 Rule Out 11/02/2019 11/02/2019 11/03/2019 3:22 PM CDT COVID-19 Rule Out 12/13/2019 12/13/2019 12/14/2019 3:06 PM CDT COVID-19 Confirmed 12/13/2019 12/13/2019 0 12:34 AM HEEL SCOURER documented as of this encounter Care Teams Sap Bobj Developer Relationship Specialty Start Date End Date Jarred Rod MD PCP - General FAMILY PRACTICE 07/21/15 09/30/20 Shira Shi, JESUSC [address] [place] [address] PCP - General PHYSICIAN PLATEN PRESS OPERATOR 10/01/20 11/17/20 Jarred Rod MD [address] [place] [address] PCP - General FAMILY PRACTICE 11/18/20 12/05/20 Abiodun Segura II, MD [address] [place] [address] PCP - General FAMILY PRACTICE 12/06/20 01/16/21 Jarred Rod MD [address] [place] [address] PCP - General FAMILY PRACTICE 01/17/21 03/08/21 documented as of this encounter
--- OUTSIDE RECORDS SUMMARY | 2024-03-02 22:33 | XMS_ITS | Encounter Summary ---
Author Organization [facility] Address [address] [place] [address]. [place] [address] [place] [address] Care Team Providers Care Clinical Leader Name Role Phone Jarred Rod MD Primary Care Provider Unav Crispin Peres MD Unavailable [phone] Encounter Details Date Type Department Care Team (Late st Contact Info) Description 12/23/2016 Scan [facility] CONVERSION [facility] [place] [address] , Generic ConversionMD Social History Tobacco Use Types Packs/Day Years [...] st Contact Info) Description 03/14/2024 11:45 AM MUD MIXER HELPER Office Visit [facility]-[address] [address] Marvin Mckeon MD Three [facility] [address] [place] [address] 03/20/2024 11:30 AM MUD MIXER HELPER Office Visit [facility] Family Medicine - [place] 100 [place] [phone] Abiodun Segura II, MD 100 [place] [address] documented as of this encounter Visit Diagnoses Not on filedocumented in this encounter Care Teams Clinical Leader Relationship Specialty Start Date End Date Jarred Rod MD PCP - General FAMILY PRACTICE 07/21/15 09/30/20 Crispin Gomez MD [facility] [address] [place] [address] [place] Sewing Machine Operator Semiautomatic INTERNAL MEDICINE 07/21/15 documented as of this encounter
--- OUTSIDE RECORDS SUMMARY | 2024-03-02 22:33 | XMS_ITS | Encounter Summary ---
Author Organization [facility] Address [address] [place] [address]. [place] [address] [place] [address] Care Team Providers Care Spotlight Operator Name Role Phone Jarred Rod MD Primary Care Provider Unav ailable Crispin oGmez MD Unavailable [phone] Jarred Rod MD Primary Care Provider Unav ailJarred Hayden MD Primary Care Provider Unav ailable Jarred Rod MD Primary Care Provider Unav ailable Jarred Rod MD Primary Care Provider Unav ailable Encounter Details Date Type Department Care Team (Late st Contact Info) Description 06/09/1996 Abstract [facility]BENA CONVERSION ONE [place], [place] [id number] , Generic Conversion, Social History Tobacco Use Types Packs/Day Years [...] st Contact Info) Description 03/14/2024 11:45 AM DB2 SYSTEMS PROGRAMMER Office Visit [facility]-[address] [address] Marvin Mckeon MD Three [facility] [address] [place] [address] 03/20/2024 11:30 AM DB2 SYSTEMS PROGRAMMER Office Visit [facility] Family Medicine - [place] 100 [place] [phone] Abiodun Segura II, MD 100 [place] [address] documented as of this encounter Visit Diagnoses Not on filedocumented in this encounter Care Teams Spotlight Operator Relationship Specialty Start Date End Date Jarred Rod MD PCP - General FAMILY PRACTICE 07/21/15 09/30/20 Jarred Rod MD PCP - General 05/05/14 07/20/15 Jarred Rod MD PCP - General 03/03/13 05/04/14 Jarred Rod MD PCP - General 12/02/12 03/02/13 Jarred Rod MD PCP - General 11/07/12 12/01/12 Crispin Gomez MD Three [facility] [place] [address] [place] Resident Hall Director INTERNAL MEDICINE 07/21/15 documented as of this encounter
--- OUTSIDE RECORDS SUMMARY | 2024-03-02 22:33 | XMS_ITS | Encounter Summary ---
Author Organization [facility] Address [address] [place] [address]. [place] [address] [place] [address] Care Team Providers Care Scrap Carrier Name Role Phone Jarred Rod MD Primary Care Provider Unav ailable Crispin Gomez MD Unavailable [phone] Jarred Rod MD Primary Care Provider Unav ailJarred Hayden MD Primary Care Provider Unav ailable Jarred Rod MD Primary Care Provider Unav ailable Jarred Rod MD Primary Care Provider Unav ailable Encounter Details Date Type Department Care Team (Late st Contact Info) Description 11/07/2012 Emergency [facility] [place] [address] Giacomo Galaviz MD Social History [...] Contact Info) Description 03/14/2024 11:45 AM HEEL SLUGGER Office Visit [facility] [address] Marvin Mckeon MD [facility] [address] [place] [address] 03/20/2024 11:30 AM HEEL SLUGGER Office Visit [facility] Family Medicine - [place] 100 [place] [phone] Abiodun Segura II, MD 100 [place] [address] documented as of this encounter Visit Diagnoses Diagnosis Abdominal pain Abdominal pain, unspecified site documented in this encounter Care Teams Scrap Carrier Relationship Specialty Start Date End Date Jarred Rod MD PCP - General FAMILY PRACTICE 07/21/15 09/30/20 Jarred Rod MD PCP - General 05/05/14 07/20/15 Jarred Rod MD PCP - General 03/03/13 05/04/14 Jarred Rod MD PCP - General 12/02/12 03/02/13 Jarred Rod MD PCP - General 11/07/12 12/01/12 Crispin Gomez MD [facility] [address] [place] [address] [place] Sausage Machine Operator INTERNAL MEDICINE 07/21/15 documented as of this encounter
--- OUTSIDE RECORDS SUMMARY | 2024-03-02 22:34 | XMS_ITS | Encounter Summary ---
Author Organization [facility] Address [address] [place] [address]. [place] [address] [place] [address] Care Team Providers Care Brusher Name Role Phone Jarred Rod MD Primary Care Provider Unav ailable Crispin Gomez MD Unavailable [phone] Jarred Rod MD Primary Care Provider Unav ailJarred Hayden MD Primary Care Provider Unav ailable Jarred Rod MD Primary Care Provider Unav ailable Jarred Rod MD Primary Care Provider Unav ailable Encounter Details Date Type Department Care Team (Late st Contact Info) Description 05/05/1990 Abstract [place] [address] , Generic Conversion, Social History Tobacco Use [...] Contact Info) Description 03/14/2024 11:45 AM SUPERINTENDENT MARINE OIL TERMINAL Office Visit [facility] [address] Marvin Mckeon MD Three [facility] [address] [place] [address] 03/20/2024 11:30 AM SUPERINTENDENT MARINE OIL TERMINAL Office Visit [facility] Medical Group Family Medicine - [place] 100 [place] [phone] Abiodun Segura II, MD 100 [place] [address] documented as of this encounter Visit Diagnoses Not on filedocumented in this encounter Care Teams Brusher Relationship Specialty Start Date End Date Jarred Rod MD PCP - General FAMILY PRACTICE 07/21/15 09/30/20 Jarred Rod MD PCP - General 05/05/14 07/20/15 Jarred Rod MD PCP - General 03/03/13 05/04/14 Jarred Rod MD PCP - General 12/02/12 03/02/13 Jarred Rod MD PCP - General 11/07/12 12/01/12 Crispin Gomez MD [facility] [address] [place] [address] [place] Broaching Machine Operator INTERNAL MEDICINE 07/21/15 documented as of this encounter
--- OUTSIDE RECORDS SUMMARY | 2024-03-02 22:34 | XMS_ITS | Encounter Summary ---
Author Organization [facility] Address [address] [place] [address]. [place] [address] [place] [address] Care Team Providers Care Textile Converter Name Role Phone Jarred Rod MD Primary Care Provider Unav ailable Crispin Gomez MD Unavailable [phone] Jarred Rod MD Primary Care Provider Unav ailJarred Hayden MD Primary Care Provider Unav ailable Jarred Rod MD Primary Care Provider Unav ailable Jarred Rod MD Primary Care Provider Unav ailable Encounter Details Date Type Department Care Team (Late st Contact Info) Description 03/02/1990 Abstract [place] [address] , Generic Conversion, Social History [...] st Contact Info) Description 03/14/2024 11:45 AM DINING HOST Office Visit [facility] [address] Marvin Mckeon MD Three [facility] [address] [place] [address] 03/20/2024 11:30 AM DINING HOST Office Visit [facility] Medical [facility] Family Medicine - [place] 100 [place] [phone] Abiodun Segura II, MD 100 [place] [address] documented as of this encounter Visit Diagnoses Not on filedocumented in this encounter Care Teams Textile Converter Relationship Specialty Start Date End Date Jarred Rod MD PCP - General FAMILY PRACTICE 07/21/15 09/30/20 Jarred Rod MD PCP - General 05/05/14 07/20/15 Jarred Rod MD PCP - General 03/03/13 05/04/14 Jarred Rod MD PCP - General 12/02/12 03/02/13 Jarred Rod MD PCP - General 11/07/12 12/01/12 Crispin Gomez MD [facility] [address] [place] [address] [place] Director Telehealth INTERNAL MEDICINE 07/21/15 documented as of this encounter
--- OUTSIDE RECORDS SUMMARY | 2024-03-02 22:34 | XMS_ITS | Encounter Summary ---
Author Organization [facility] Address [address] [place] [address]. [place] [address] [place] [address] Care Team Providers Care Partnership Marketing Manager Name Role Phone Jarred Rod MD Primary Care Provider Unav ailable Crispin Gomez MD Unavailable [phone] Jarred Rod MD Primary Care Provider Unav ailJarred Hayden MD Primary Care Provider Unav ailable Jarred Rod MD Primary Care Provider Unav ailable Jarred Rod MD Primary Care Provider Unav ailable Encounter Details Date Type Department Care Team (Late st Contact Info) Description 01/14/1992 Abstract [place] [address] , Generic Conversion, Social History [...] st Contact Info) Description 03/14/2024 11:45 AM MOLASSES COLORING OPERATOR Office Visit [facility] [address] Marvin Mckeon MD Three [facility] [address] [place] [address] 03/20/2024 11:30 AM MOLASSES COLORING OPERATOR Office Visit [facility] Medical Group Family Medicine - [place] 100 [place] [phone] Abiodun Segura II, MD 100 [place] [address] documented as of this encounter Visit Diagnoses Not on filedocumented in this encounter Care Teams Partnership Marketing Manager Relationship Specialty Start Date End Date Jarred Rod MD PCP - General FAMILY PRACTICE 07/21/15 09/30/20 Jarred Rod MD PCP - General 05/05/14 07/20/15 Jarred Rod MD PCP - General 03/03/13 05/04/14 Jarred Rod MD PCP - General 12/02/12 03/02/13 Jarred Rod MD PCP - General 11/07/12 12/01/12 Crispin Gomez MD Three [facility] [address] [place] [address] [place] Chute Operator INTERNAL MEDICINE 07/21/15 documented as of this encounter
--- OUTSIDE RECORDS SUMMARY | 2024-03-02 22:34 | XMS_ITS | Encounter Summary ---
Author Organization [facility] Address [address] [place] [address]. [place] [address] [place] [address] Care Team Providers Care Heat Transfer Technician Name Role Phone Jarred Rod MD Primary Care Provider Unav ailable Crispin Gomez MD Unavailable [phone] Jarred Rod MD Primary Care Provider Unav ailJarred Hayden MD Primary Care Provider Unav ailable Jarred Rod MD Primary Care Provider Unav ailable Jarred Rod MD Primary Care Provider Unav ailable Encounter Details Date Type Department Care Team (Late st Contact Info) Description 01/07/1993 Abstract [place] [address] , Generic Conversion, Social History [...] st Contact Info) Description 03/14/2024 11:45 AM ACCOUNT MANAGER RELIEF Office Visit [facility]-[address] [address] Marvin Mckeon MD Three [facility] [address] [place] [address] 03/20/2024 11:30 AM ACCOUNT MANAGER RELIEF Office Visit [facility] Medical [facility] Family Medicine - [place] 100 [place] [phone] Abiodun Segura II, MD 100 [place] [address] documented as of this encounter Visit Diagnoses Not on filedocumented in this encounter Care Teams Heat Transfer Technician Relationship Specialty Start Date End Date Jarred Rod MD PCP - General FAMILY PRACTICE 07/21/15 09/30/20 Jarred Rod MD PCP - General 05/05/14 07/20/15 Jarred Rod MD PCP - General 03/03/13 05/04/14 Jarred Rod MD PCP - General 12/02/12 03/02/13 Jarred Rod MD PCP - General 11/07/12 12/01/12 Crispin Gomez MD Three [facility] [address] [place] [address] [place] Soft Metals Hand Engraver INTERNAL MEDICINE 07/21/15 documented as of this encounter
--- OUTSIDE RECORDS SUMMARY | 2024-03-02 22:34 | XMS_ITS | Encounter Summary ---
Author Organization [facility] Address [address] [place] [address]. [place] [address] [place] [address] Care Team Providers Care Audio Narrator Name Role Phone Jarred Rod MD Primary Care Provider Unav ailable Crispin Gomez MD Unavailable [phone] Jarred Rod MD Primary Care Provider Unav ailJarred Hayden MD Primary Care Provider Unav ailable Jarred Rod MD Primary Care Provider Unav ailable Jarred Rod MD Primary Care Provider Unav ailable Encounter Details Date Type Department Care Team (Late st Contact Info) Description 05/06/1993 Abstract [place] [address] , Generic Conversion, Social History [...] Contact Info) Description 03/14/2024 11:45 AM TUNNEL KILN OPERATOR Office Visit [facility] [address] Marvin Mckeon MD Three [facility] [address] [place] [address] 03/20/2024 11:30 AM TUNNEL KILN OPERATOR Office Visit [facility] Medical Group Family Medicine - [place] 100 [place] [phone] Abiodun Segura II, MD 100 [place] [address] documented as of this encounter Visit Diagnoses Not on filedocumented in this encounter Care Teams Audio Narrator Relationship Specialty Start Date End Date Jarred Rod MD PCP - General FAMILY PRACTICE 07/21/15 09/30/20 Jarred Rod MD PCP - General 05/05/14 07/20/15 Jarred Rod MD PCP - General 03/03/13 05/04/14 Jarred Rod MD PCP - General 12/02/12 03/02/13 Jarred Rod MD PCP - General 11/07/12 12/01/12 Crispin Gomez MD Three [facility] [address] [place] [address] [place] Front Tender INTERNAL MEDICINE 07/21/15 documented as of this encounter
--- OUTSIDE RECORDS SUMMARY | 2024-03-02 22:34 | XMS_ITS | Encounter Summary ---
Author Organization [facility] Address [address] [place] [address]. [place] [address] [place] [address] Care Team Providers Care Finance Business Partner Name Role Phone Jarred Rod MD Primary Care Provider Unav ailable Crispin Gomez MD Unavailable [phone] Jarred Rod MD Primary Care Provider Unav ailJarred Hayden MD Primary Care Provider Unav ailable Jarred Rod MD Primary Care Provider Unav ailable Jarred Rod MD Primary Care Provider Unav ailable Encounter Details Date Type Department Care Team (Late st Contact Info) Description 04/13/1993 Abstract [place] [address] , Generic Conversion, Social History [...] st Contact Info) Description 03/14/2024 11:45 AM PROFILER OPERATOR Office Visit [facility]-[address] [address] Marvin Mckeon MD Three [facility] [address] [place] [address] 03/20/2024 11:30 AM PROFILER OPERATOR Office Visit [facility] Medical Group Family Medicine - [place] 100 [place] [phone] Abiodun Segura II, MD 100 [place] [address] documented as of this encounter Visit Diagnoses Not on filedocumented in this encounter Care Teams Finance Business Partner Relationship Specialty Start Date End Date Jarred Rod MD PCP - General FAMILY PRACTICE 07/21/15 09/30/20 Jarred Rod MD PCP - General 05/05/14 07/20/15 Jarred Rod MD PCP - General 03/03/13 05/04/14 Jarred Rod MD PCP - General 12/02/12 03/02/13 Jarred Rod MD PCP - General 11/07/12 12/01/12 Crispin Gomez MD Three [facility] [address] [place] [address] [place] Radio Communication Coordinator INTERNAL MEDICINE 07/21/15 documented as of this encounter
--- OUTSIDE RECORDS SUMMARY | 2024-03-02 22:34 | XMS_ITS | Encounter Summary ---
Author Organization [facility] Address [address] [place] [address]. [place] [address] [place] [address] Care Team Providers Care Waste/Materials Exchange Specialist Name Role Phone Jarred Rod MD Primary Care Provider Unav ailable Crispin Gomez MD Unavailable [phone] Jarred Rod MD Primary Care Provider Unav ailJarred Hayden MD Primary Care Provider Unav ailable Jarred Rod MD Primary Care Provider Unav ailable Jarred Rod MD Primary Care Provider Unav ailable Encounter Details Date Type Department Care Team (Late st Contact Info) Description 02/17/1993 Abstract [place] [address] , Generic Conversion, Social History [...] st Contact Info) Description 03/14/2024 11:45 AM PRINT JOURNALIST Office Visit [facility]-[address] [address] Marvin Mckeon MD Three [facility] [address] [place] [address] 03/20/2024 11:30 AM PRINT JOURNALIST Office Visit [facility] Medical Group Family Medicine - [place] 100 [place] [phone] Abiodun Segura II, MD 100 [place] [address] documented as of this encounter Visit Diagnoses Not on filedocumented in this encounter Care Teams Waste/Materials Exchange Specialist Relationship Specialty Start Date End Date Jarred Rod MD PCP - General FAMILY PRACTICE 07/21/15 09/30/20 Jarred Rod MD PCP - General 05/05/14 07/20/15 Jarred Rod MD PCP - General 03/03/13 05/04/14 Jarred Rod MD PCP - General 12/02/12 03/02/13 Jarred Rod MD PCP - General 11/07/12 12/01/12 Crispin Gomez MD Three [facility] [address] [place] [address] [place] Sales Service Professional INTERNAL MEDICINE 07/21/15 documented as of this encounter
--- OUTSIDE RECORDS SUMMARY | 2024-03-02 22:34 | XMS_ITS | Encounter Summary ---
Author Organization [facility] Address [address] [place] [address]. [place] [address] [place] [address] Care Team Providers Care Jammer Hooker Name Role Phone Jarred Rod MD Primary Care Provider Unav ailable Crispin Gomez MD Unavailable [phone] Jarred Rod MD Primary Care Provider Unav ailJarred Hayden MD Primary Care Provider Unav ailable Jarred Rod MD Primary Care Provider Unav ailable Jarred Rod MD Primary Care Provider Unav ailable Encounter Details Date Type Department Care Team (Late st Contact Info) Description 04/17/1994 Abstract [place] [address] , Generic Conversion, Social History [...] st Contact Info) Description 03/14/2024 11:45 AM SHEET MILL SUPERVISOR Office Visit [facility]-[address] [address] Marvin Mckeon MD Three [facility] [address] [place] [address] 03/20/2024 11:30 AM SHEET MILL SUPERVISOR Office Visit [facility] Medical Group Family Medicine - [place] 100 [place] [phone] Abiodun Segura II, MD 100 [place] [address] documented as of this encounter Visit Diagnoses Not on filedocumented in this encounter Care Teams Jammer Hooker Relationship Specialty Start Date End Date Jarred Rod MD PCP - General FAMILY PRACTICE 07/21/15 09/30/20 Jarred Rod MD PCP - General 05/05/14 07/20/15 Jarred Rod MD PCP - General 03/03/13 05/04/14 Jarred Rod MD PCP - General 12/02/12 03/02/13 Jarred Rod MD PCP - General 11/07/12 12/01/12 Crispin Gomez MD Three [facility] [address] [place] [address] [place] Mechanical Ordnance Assembler INTERNAL MEDICINE 07/21/15 documented as of this encounter
--- OUTSIDE RECORDS SUMMARY | 2024-03-02 22:34 | XMS_ITS | Encounter Summary ---
Author Organization [facility] Address [address] [place] [address]. [place] [address] [place] [address] Care Team Providers Care Export Clerk Name Role Phone Jarred Rod MD Primary Care Provider Unav ailable Crispin Gomez MD Unavailable [phone] Jarred Rod MD Primary Care Provider Unav ailJarred Hayden MD Primary Care Provider Unav ailable Jarred Rod MD Primary Care Provider Unav ailable Jarred Rod MD Primary Care Provider Unav ailable Encounter Details Date Type Department Care Team (Late st Contact Info) Description 10/17/1991 Abstract [place] [address] , Generic Conversion, Social History [...] st Contact Info) Description 03/14/2024 11:45 AM COSMETOLOGY PROFESSOR Office Visit [facility]-[address] [address] Marvin Mckeon MD Three [facility] [address] [place] [address] 03/20/2024 11:30 AM COSMETOLOGY PROFESSOR Office Visit [facility] Medical Group Family Medicine - [place] 100 [place] [phone] Abiodun Segura II, MD 100 [place] [address] documented as of this encounter Visit Diagnoses Not on filedocumented in this encounter Care Teams Export Clerk Relationship Specialty Start Date End Date Jarred Rod MD PCP - General FAMILY PRACTICE 07/21/15 09/30/20 Jarred Rod MD PCP - General 05/05/14 07/20/15 Jarred Rod MD PCP - General 03/03/13 05/04/14 Jarred Rod MD PCP - General 12/02/12 03/02/13 Jarred Rod MD PCP - General 11/07/12 12/01/12 Crispin Gomez MD Three [facility] [address] [place] [address] [place] Clubhouse Attendant INTERNAL MEDICINE 07/21/15 documented as of this encounter
--- OUTSIDE RECORDS SUMMARY | 2024-03-02 22:34 | XMS_ITS | Encounter Summary ---
Author Organization [facility] Address [address] [place] [address]. [place] [address] [place] [address] Care Team Providers Care Lithographic Press Feeder Name Role Phone Jarred Rod MD Primary Care Provider Unav ailable Crispin Gomez MD Unavailable [phone] Jarred Rod MD Primary Care Provider Unav ailJarred Hayden MD Primary Care Provider Unav ailable Jarred Rod MD Primary Care Provider Unav ailable Jarred Rod MD Primary Care Provider Unav ailable Encounter Details Date Type Department Care Team (Late st Contact Info) Description 03/29/1990 Abstract [place] [address] , Generic Conversion, Social History [...] st Contact Info) Description 03/14/2024 11:45 AM STRIPPER PRELIMINARY Office Visit [facility]-[address] [address] Marvin Mckeon MD Three [facility] [address] [place] [address] 03/20/2024 11:30 AM STRIPPER PRELIMINARY Office Visit [facility] Medical Group Family Medicine - [place] 100 [place] [phone] Abiodun Segura II, MD 100 [place] [address] documented as of this encounter Visit Diagnoses Not on filedocumented in this encounter Care Teams Lithographic Press Feeder Relationship Specialty Start Date End Date Jarred Rod MD PCP - General FAMILY PRACTICE 07/21/15 09/30/20 Jarred Rod MD PCP - General 05/05/14 07/20/15 Jarred Rod MD PCP - General 03/03/13 05/04/14 Jarred Rod MD PCP - General 12/02/12 03/02/13 Jarred Rod MD PCP - General 11/07/12 12/01/12 Crispin Gomez MD [facility] [address] [place] [address] [place] Passenger Car Inspector INTERNAL MEDICINE 07/21/15 documented as of this encounter
--- OUTSIDE RECORDS SUMMARY | 2024-03-02 22:34 | XMS_ITS | Encounter Summary ---
Author Organization [facility] Address [address] [place] [address]. [place] [address] [place] [address] Care Team Providers Care Statistical Secretary Name Role Phone Jarred Rod MD Primary Care Provider Unav ailable Crispin Gomez MD Unavailable [phone] Jarred Rod MD Primary Care Provider Unav ailJarred Hayden MD Primary Care Provider Unav ailable Jarred Rod MD Primary Care Provider Unav ailable Jarred Rod MD Primary Care Provider Unav ailable Encounter Details Date Type Department Care Team (Late st Contact Info) Description 05/24/1993 Abstract [place] [address] , Generic Conversion, Social History [...] st Contact Info) Description 03/14/2024 11:45 AM ACCOUNTING COORDINATOR Office Visit [facility]-[address] [address] Marvin Mckeon MD Three [facility] [address] [place] [address] 03/20/2024 11:30 AM ACCOUNTING COORDINATOR Office Visit [facility] Medical Group Family Medicine - [place] 100 [place] [phone] Abiodun Segura II, MD 100 [place] [address] documented as of this encounter Visit Diagnoses Not on filedocumented in this encounter Care Teams Statistical Secretary Relationship Specialty Start Date End Date Jarred Rod MD PCP - General FAMILY PRACTICE 07/21/15 09/30/20 Jarred Rod MD PCP - General 05/05/14 07/20/15 Jarred Rod MD PCP - General 03/03/13 05/04/14 Jarred Rod MD PCP - General 12/02/12 03/02/13 Jarred Rod MD PCP - General 11/07/12 12/01/12 Crispin Gomez MD Three [facility] [address] [place] [address] [place] Container Crane Operator INTERNAL MEDICINE 07/21/15 documented as of this encounter
--- OUTSIDE RECORDS SUMMARY | 2024-03-02 22:34 | XMS_ITS | Encounter Summary ---
Author Organization [facility] Address [address] [place] [address]. [place] [address] [place] [address] Care Team Providers Care Radio News Writer Name Role Phone Jarred Rod MD Primary Care Provider Unav ailable Crispin Gomez MD Unavailable [phone] Jarred Rod MD Primary Care Provider Unav ailJarred Hayden MD Primary Care Provider Unav ailable Jarred Rod MD Primary Care Provider Unav ailable Jarred Rod MD Primary Care Provider Unav ailable Encounter Details Date Type Department Care Team (Late st Contact Info) Description 12/23/1991 Abstract [place] [address] , Generic Conversion, Social History [...] st Contact Info) Description 03/14/2024 11:45 AM SANDWICH HAND Office Visit [facility]-[address] [address] Marvin Mckeon MD Three [facility] [address] [place] [address] 03/20/2024 11:30 AM SANDWICH HAND Office Visit [facility] Medical Group Family Medicine - [place] 100 [place] [phone] Abiodun Segura II, MD 100 [place] [address] documented as of this encounter Visit Diagnoses Not on filedocumented in this encounter Care Teams Radio News Writer Relationship Specialty Start Date End Date Jarred Rod MD PCP - General FAMILY PRACTICE 07/21/15 09/30/20 Jarred Rod MD PCP - General 05/05/14 07/20/15 Jarred Rod MD PCP - General 03/03/13 05/04/14 Jarred Rod MD PCP - General 12/02/12 03/02/13 Jarred Rod MD PCP - General 11/07/12 12/01/12 Crispin Gomez MD Three [facility] [address] [place] [address] [place] Custodian Manager INTERNAL MEDICINE 07/21/15 documented as of this encounter
--- OUTSIDE RECORDS SUMMARY | 2024-03-02 22:34 | XMS_ITS | Encounter Summary ---
Author Organization [facility] Address [address] [place] [address]. [place] [address] [place] [address] Care Team Providers Care Technical Service Representative Name Role Phone Jarred Rod MD Primary Care Provider Unav ailable Crispin Gomez MD Unavailable [phone] Jarred Rod MD Primary Care Provider Unav ailJarred Hayden MD Primary Care Provider Unav ailable Jarred Rod MD Primary Care Provider Unav ailable Jarred Rod MD Primary Care Provider Unav ailable Encounter Details Date Type Department Care Team (Late st Contact Info) Description 02/24/1993 Abstract [place] [address] , Generic Conversion, Social History [...] st Contact Info) Description 03/14/2024 11:45 AM ANNEALING TORCH OPERATOR Office Visit [facility]-[address] [address] Marvin Mckeon MD Three [facility] [address] [place] [address] 03/20/2024 11:30 AM ANNEALING TORCH OPERATOR Office Visit [facility] Medical Group Family Medicine - [place] 100 [place] [phone] Abiodun Segura II, MD 100 [place] [address] documented as of this encounter Visit Diagnoses Not on filedocumented in this encounter Care Teams Technical Service Representative Relationship Specialty Start Date End Date Jarred Rod MD PCP - General FAMILY PRACTICE 07/21/15 09/30/20 Jarred Rod MD PCP - General 05/05/14 07/20/15 Jarred Rod MD PCP - General 03/03/13 05/04/14 Jarred Rod MD PCP - General 12/02/12 03/02/13 Jarred Rod MD PCP - General 11/07/12 12/01/12 Crispin Gomez MD Three [facility] [address] [place] [address] [place] Drawing Operator INTERNAL MEDICINE 07/21/15 documented as of this encounter
--- OUTSIDE RECORDS SUMMARY | 2024-03-02 22:34 | XMS_ITS | Encounter Summary ---
Author Organization [facility] Address [address] [place] [address]. [place] [address] [place] [address] Care Team Providers Care Beef Trimmer Name Role Phone Jarred Rod MD Primary Care Provider Unav ailable Crispin Gomez MD Unavailable [phone] Jarred Rod MD Primary Care Provider Unav ailJarred Hayden MD Primary Care Provider Unav ailable Jarred Rod MD Primary Care Provider Unav ailable Jarred Rod MD Primary Care Provider Unav ailable Encounter Details Date Type Department Care Team (Late st Contact Info) Description 07/13/1993 Abstract [place] [address] , Generic Conversion, Social History [...] Contact Info) Description 03/14/2024 11:45 AM FRUIT VENDOR Office Visit [facility] [address] Marvin Mckeon MD [address] [facility] [address] [place] [address] 03/20/2024 11:30 AM FRUIT VENDOR Office Visit [facility] Family Medicine - [place] [address] [place] [phone] Abiodun Segura II, MD [address] [place] [address] documented as of this encounter Visit Diagnoses Not on filedocumented in this encounter Care Teams Beef Trimmer Relationship Specialty Start Date End Date Jarred Rod MD PCP - General FAMILY PRACTICE 07/21/15 09/30/20 Jarred Rod MD PCP - General 05/05/14 07/20/15 Jarred Rod MD PCP - General 03/03/13 05/04/14 Jarred oRd MD PCP - General 12/02/12 03/02/13 Jarred Rod MD PCP - General 11/07/12 12/01/12 Crispin Gomez [facility] [place] [address] [place] Custom Home Installer INTERNAL MEDICINE 07/21/15 documented as of this encounter
--- OUTSIDE RECORDS SUMMARY | 2024-03-02 22:34 | XMS_ITS | Encounter Summary ---
Author Organization [facility] Address [address] [place] [address]. [place] [address] [place] [address] Care Team Providers Care Piano Regulator Inspector Name Role Phone Jarred Rod MD Primary Care Provider Unav ailable Crispin Gomez MD Unavailable [phone] Jarred Rod MD Primary Care Provider Unav ailJarred Hayden MD Primary Care Provider Unav ailable Jarred Rod MD Primary Care Provider Unav ailable Jarred Rod MD Primary Care Provider Unav ailable Encounter Details Date Type Department Care Team (Late st Contact Info) Description 07/11/1993 Abstract [place] [address] , Generic Conversion, Social History [...] st Contact Info) Description 03/14/2024 11:45 AM ASSOCIATE DIRECTOR FINANCIAL AID Office Visit [facility] [address] Marvin Mckeon MD [address] [facility] [address] [place] [address] 03/20/2024 11:30 AM ASSOCIATE DIRECTOR FINANCIAL AID Office Visit [facility] Family [facility] - [place] [address] [place] [phone] Abiodun Segura II, MD [address] [place] [address] documented as of this encounter Visit Diagnoses Not on filedocumented in this encounter Care Teams Piano Regulator Inspector Relationship Specialty Start Date End Date Jarred Rod MD PCP - General FAMILY PRACTICE 07/21/15 09/30/20 Jarred Rod MD PCP - General 05/05/14 07/20/15 Jarred Rod MD PCP - General 03/03/13 05/04/14 Jarred Rod MD PCP - General 12/02/12 03/02/13 Jarred Rod MD PCP - General 11/07/12 12/01/12 Crispin Gomez MD [facility] [address] [place] [address] [place] Associate Java Developer INTERNAL MEDICINE 07/21/15 documented as of this encounter
--- OUTSIDE RECORDS SUMMARY | 2024-03-02 22:58 | XMS_ITS | Encounter Summary ---
Author Organization [facility] Address [address] [place] [address] Phone Care Team Providers Care Diamond Sizer Name Role Phone Provider, None Primary Care Provider Unavailabl e Encounter Details Date Type Department Care Team (Late st Contact Info) Description 04/04/2022 Telephone [facility] - Gastroenterology - [place] [address] [place] [address] Jose Maria Downey MD [address] [place], [place] [id number] Social History Tobacco Use Types Packs/Day Years Used Date Smoking Tobacco: Never Assessed Comments Unknown Sex and Gender Information Value Date Recorded Sex Assigned at Not on file Legal Sex Female 10:13 PM CDT Gender Identity Not on file Sexual Orientation Not on file documented as of this encounter Miscellaneous Notes * Telephone Encounter - Sang Astudillo CMA - 04/04/2022 10:13 AM ELEVATOR INSTALLER Received request for medical records from [facility]. This was scanned to medical records. ATOR INSTALLER documented in this encounter Plan of Treatment Not on file documented as of this encounter Visit Diagnoses Not on filedocumented in this encounter Care Teams Diamond Sizer Relationship Specialty Start Date End Date Provider, None HATTIE PCP - General 10/09/16 documented as of this encounter
--- OUTSIDE RECORDS SUMMARY | 2024-03-02 22:58 | XMS_ITS | Clinical Summary ---
Author Organization [facility] Address [address] [place] [address] Phone Care Team Providers Care Cemetery Counselor Name Role Phone Provider, None Primary Care Provider Unavailabl e Social History Tobacco Use Types Packs/Day Years Used Date Smoking Tobacco: Never Assessed Comments Unknown Sex and Gender Information Value Date Recorded Sex Assigned at Not on file Legal Sex Female 10:13 PM CDT Gender Identity Not on file Sexual Orientation Not on file Plan of Treatment Health Maintenance Due Date Last Done Comments Hepatitis C Virus (HCV) Screening 1971 TdaP Immunization 1971 Hepatitis B Immunization (1 of 3 - 19+ 3-dose series) 1990 Pap Smear 1992 Cervical Cancer Screening (CCS) 2001 HPV/Cotest 2001 Colonoscopy 2016 Colorectal Cancer Screening 2016 Cologuard 2021 Immunochemical Fecal Occult Blood 2021 Mammogram 2021 Pneumococcal Immunization (5 0+ years) (1 of 1 - PCV) 2021 Zoster Immunization (1 of 2) 2021 Influenza Immunization (#1) 2023 SARS-COV-2 Immunization ( - 2023- season) 2023 Respiratory Syncytial Virus (RSV) Immunization (Adult) (1 - 1-dose 75+ series) 2046 Meningococcal Immunization (ACWY) Aged Out No longer eligible based on patient's age to complete this topic Pneumococcal Immunization Combined Aged Out No longer eligible based on patient's age to complete this topic Rotavirus Immunization Aged Out No lo nger eligible based on patient's age to complete this topic Care Teams Cemetery Counselor Relationship Specialty Start Date End Date Provider, [place] PCP - General 10/09/16
--- OUTSIDE RECORDS SUMMARY | 2024-03-03 01:14 | XMS_ITS | Encounter Summary ---
Author Organization [facility] Address [address] [place] [address] Care Team Providers Care Welfare Eligibility Interviewer Name Role Phone Colton SILVEIRA MD, Abiodun Rushing Primary Care Provider Reason for Visit * Reason Onset Date Comments Reschedule Appointment 11/05/2023 Left vm f or patient to call back and reschedule appointment with Dr. Olivera. Encounter Details Date Type Department Care Team (Late st Contact Info) Description 11/05/2023 Telephone [facility] - Centralized Scheduling [facility] [place] [address] Sharyn [place] Reschedule Appointment (Left [...] on filedocumented in this encounter Care Teams Welfare Eligibility Interviewer Relationship Specialty Start Date End Date Abiodun Segura II, MD [address] [place] [id number] PCP - General Family Medicine 10/30/23 documented as of this encounter
--- OUTSIDE RECORDS SUMMARY | 2024-03-03 01:14 | XMS_ITS | Encounter Summary ---
Author Organization [facility] Address [facility] [place] [address] Care Team Providers Care Clarifier Name Role Phone Jarred Rod MD Primary Care Provider Unav ailable Encounter Details Date Type Department Care Team (Late st Contact Info) Description 06/03/2013 Anesthesia Historic Visit [facility] SURGERY [address] [place] [address] Social History Tobacco Use Types [...] on filedocumented in this encounter Care Teams Clarifier Relationship Specialty Start Date End Date Jarred Rod MD PCP - General 03/11/12 10/29/23 documented as of this encounter
--- OUTSIDE RECORDS SUMMARY | 2024-03-03 01:14 | XMS_ITS | Encounter Summary ---
Author Organization [facility] Address [address] [facility] [place] [address] Care Team Providers Care Patient Sitter Name Role Phone Colton SILVEIRA MD, Abiodun [...] on filedocumented in this encounter Care Teams Patient Sitter Relationship Specialty Start Date End Date Abiodun Segura II, MD [address] [place] [address] PCP - General Family Medicine 10/30/23 documented as of this encounter
--- OUTSIDE RECORDS SUMMARY | 2024-03-03 01:14 | XMS_ITS | Encounter Summary ---
Author Organization [facility] Address [address] [facility] [place] [place] [address] Care Team Providers Care Snaker Driving Horses Name Role Phone Colton SILVEIRA MD, Abiodun Rushing Primary Care Provider Reason for Visit * Reason Onset Date Comments Results 11/27/2023 Encounter Details Date Type Department Care Team (Late st Contact Info) Description 11/27/2023 Telephone [facility] - Infectious Disease [address] [place] [address], [facility] [place] [address] Felicia Olivera MD [facility] [place] [address] Results Social History Tobacco Use Types Packs/Day [...] Mcneal would like her medicines sent to [facility] in, [address] [facility]. [place], [place] [phone]. Additionally, she would like for you to give her a call to review what infections she had. Patient Call Back Number: [phone] 2:55 PM Spoke with the patient, she stated that she still has back pain and dysuria. No F/C. She said that pain seems to be worse than when I saw her on 11/20. She wanted to go to ED, I agreed. I told her the name of the bacteria E faecalis and sensitivities. She wrote them down. She will go to ED at [facility]. If she does not get admitted, I will send her a prescription to [facility]. She state that Macrobid did not work. I will prescribe linezolid for 7 days. Pranay notify me later after ED visit. Felicia Olivera MD documented in this encounter Plan of Treatment Not on file documented as of this encounter Visit Diagnoses Not on filedocumented in this encounter Care Teams Snaker Driving Horses Relationship Specialty Start Date End Date Abiodun Segura II, MD [address] [place] [address] PCP - General Family Medicine 10/30/23 documented as of this encounter
--- OUTSIDE RECORDS SUMMARY | 2024-03-03 01:14 | XMS_ITS | Encounter Summary ---
Author Organization [facility] Address [address] [facility] [place] [address] Care Team Providers Care Warehouse Trainer Name Role Phone Colton SILVEIRA MD, Abiodun Rushing Primary Care Provider Reason for Visit * Reason Onset Date Comments Results 11/23/2023 Encounter Details Date Type Department Care Team (Late st Contact Info) Description 11/23/2023 Telephone [facility] - Infectious Disease [address] [place] [address], [facility] [place] [phone] Felicia Olivera MD [address] [place] [address] Results Social History Tobacco Use Types Packs/Day [...] on filedocumented in this encounter Care Teams Warehouse Trainer Relationship Specialty Start Date End Date Abiodun Segura II, MD [address] [place] [id number] PCP - General Family Medicine 10/30/23 documented as of this encounter
--- OUTSIDE RECORDS SUMMARY | 2024-03-03 01:14 | XMS_ITS | Encounter Summary ---
Author Organization [facility] Address [address] [facility] [place] [address] Care Team Providers Care Gasoline Pump Mechanic Name Role Phone Jarred Rod MD Primary Care Provider Unav ailable Encounter Details Date Type Department Care Team (Latest Contact Info) Description 08/07/2014 11:46 AM CDT - 08/07/2014 11:59 PM CDT Hospital Encounter [facility] - Orthopedics [address] [place] [address] Oj Alanis, DO [address] [facility] [address] [place] [phone] Discharge Disposition: Home or Self Care Social [...] left documented in this encounter Care Teams Gasoline Pump Mechanic Relationship Specialty Start Date End Date Jarred Rod MD PCP - General 03/11/12 10/29/23 documented as of this encounter
--- OUTSIDE RECORDS SUMMARY | 2024-03-03 01:14 | XMS_ITS | Encounter Summary ---
Author Organization [facility] Address [address] [place] [address] Care Team Providers Care Sales Commissions Analyst Name Role Phone Jarred Rod MD Primary Care Provider Unav ailable Encounter Details Date Type Department Care Team (Late st Contact Info) Description 06/03/2013 Hospital Outpatient Visit Historic [facility] [address] [place] [address] [place] [address] [facility] [address] [place] [address] Discharge Disposition: Home or Self [...] CDT) Glucose, Fingerstick 232(H) 70-115mg/d L mg/dL [facility] RALS (BEAKER) Comment:Household Refrigeration Mechanic: LEIGHTON VIGIL SA 06/03/2013 8:59 AM CDT Falguni Shay MD LAB - CHEMISTRY EFREN FRANK [facility] LORELEI (CHRISTIAN) * (ABNORMAL) GLUCOSE ACCUCHECK (06/03/2013 7:22 AM CDT) Glucose, Fingerstick 259(H) 70-115mg/d L mg/dL [facility] RALS (BEAKER) Comment: Physician Notified Household Refrigeration Mechanic: [email or web address] 06/03/2013 7:22 AM CDT Falguni Shay MD LAB - CHEMISTRY EFREN FRANK Performing Organization Address City/[facility]/ZIP Co de Phone Number [facility] LROELEI (CHRISTIAN) documented in this encounter Visit Diagnoses Not on filedocumented in this encounter Care Teams Sales Commissions Analyst Relationship Specialty Start Date End Date Jarred Rod MD PCP - General 03/11/12 10/29/23 documented as of this encounter
--- OUTSIDE RECORDS SUMMARY | 2024-03-03 01:14 | XMS_ITS | Patient Health Summary ---
Author Organization [facility] Address [address] [place] [address] Care Team Providers Care Clinical Research Associate Name Role Phone Colton SILVEIRA MD, Abiodun Rushing Primary Care Provider Note from [facility],non-owned Affiliates and Associated Physician Practices is amultiple site organization consisting of ambulatory clinics and hospital sitesin [place], [place], [place] and [place]. This disclosure is being madepursuant to the Care Everywhere program and may not contain all information available regarding this patient. Last updated 17.[facility] Allergies * Amoxicillin * Penicillins Medications [...] DT Respiratory Rate 12 03/23/2016 4:52 AM [facility] Oxygen Saturation 99% 11/21/2023 10:21 AM CDT [...] 03/15/2016) * PTT [facility](Performed 03/15/2016) * PT-INR [facility](Performed 03/15/2016) * XR CHEST 1VW PORTABLE(Performed 03/15/2016) [...] UA Yellow Straw, Yellow 11/21/2023 1:38 PM [facility] Clarity UA Cloudy(A) Clear 11/21/2023 1:38 PM [facility] Specific [place] UA 1.014 1.005 - 1.030 11/21/2023 1:38 PM [facility] pH UA 5.0 5.0 - 8.0 pH 11/21/2023 1:38 PM [facility] Protein UA 2+(A) Negative 11/21/2023 1:38 PM [facility] Glucose UA 1+(A) Negative 11/21/2023 1:38 PM [facility] Ketone UA Negative Negative 11/21/2023 1:38 PM [facility] Bilirubin UA Negative Negative 11/21/2023 1:38 PM CDT [facility] Blood UA Negative Negative 11/21/2023 1:38 PM [facility] Nitrite UA Negative Negative 11/21/2023 1:38 PM [facility] Leukocyte Esterase 3+(A) Negative 11/21/2023 1:38 PM [facility] Urobilinogen UA Negative Negative mg/dL 11/21/2023 1:38 PM [facility] RBC UA 6-10(A) None Seen, 0-2, 3-5 /HPF 11/21/2023 1:38 PM [facility] WBC UA >100(A) None Seen, 0-5 /HPF 11/21/2023 1:38 PM [facility] WBC Clumps Occasional( A) None /HPF 11/21/2023 1:38 PM [facility] Bacteria UA 1+(A) None /HPF 11/21/2023 1:38 PM [facility] Squamous Epithelial Cells UA 3-5 None Seen, 0-2, 3-5 /HPF 11/21/2023 1:38 PM [facility] Mucus UA 1+ /LPF 11/21/2023 1:38 PM [facility] Urine MID-STREAM URINE SPECIMEN / Unknown Collection / Unknown 11/21/2023 12:45 PM CDT 11/21/2023 1:12 PM CDT Narrative [facility] - 11/21/2023 1:38 PM CDT Lab Status, Culture Reflex Indicated. Felicia Olivera MD LAB - URINALYSIS ORD ERABLES [facility] [address] [place] [id number], [facility] [phone] * (ABNORMAL) CULTURE URINE (11/21/2023 12:45 PM CDT) Only the most recent of2 resultswithin the time period is included. Culture Urine >100,000 CFU/mL Enterococcus faecalis(A) JESSI 11/23/2023 11:19 AM CDT [facility] Urine MID-STREAM URINE SPECIMEN / [...] Olivera MD LAB - MICROBIOLOGY O RDERABLES [facility] [address] [place] [address], [facility] [phone] * (ABNORMAL) CBC WITH DIFFERENTIAL (11/21/2023 12:45 PM CDT) Only the most recent of18 resultswithin the time period is included. WBC 9.7 4.0 - 10.7 x10E9/L 11/21/2023 1:27 PM [facility] RBC Count 4.35 3.90 - 5.20 x10E12/L 11/21/2023 1:27 PM [facility] Hemoglobin 12.9 11.9 - 15.8 g/dL 11/21/2023 1:27 PM [facility] Hematocrit 38.4 34.8 - 46.1 % 11/21/2023 1:27 PM [facility] MCV 88.3 80.0 - 98.0 fL 11/21/2023 1:27 PM [facility] MCH 29.7 26.7 - 33.6 pg 11/21/2023 1:27 PM [facility] MCHC 33.6 31.7 - 36.3 g/dL 11/21/2023 1:27 PM [facility] RDW-CV 12.9 11.3 - 14.8 % 11/21/2023 1:27 PM [facility] Platelet Count 278 150 - 420 x10E9/L 11/21/2023 1:27 PM [facility] MPV 11.6(H) 7.8 - 11.4 fL 11/21/2023 1:27 PM [facility] Neutrophil % 62.9 41.0 - 74.0 % 11/21/2023 1:27 PM [facility] Lymphocyte % 31.1 17.0 - 47.0 % 11/21/2023 1:27 PM [facility] Monocyte % 4.2 3.0 - 11.0 % 11/21/2023 1:27 PM [facility] Eosinophil % 1.1 0.0 - 7.0 % 11/21/2023 1:27 PM [facility] Basophil % 0.5 0.0 - 1.6 % 11/21/2023 1:27 PM [facility] Immature Granulocytes % 0.2 0.0 - 1.0 % 11/21/2023 1:27 PM [facility] Neutrophil Absolute 6.12 1.60 - 7.50 x10E9/L 11/21/2023 1:27 PM [facility] Lymphocyte Absolute 3.03 1.00 - 4.40 x10E9/L 11/21/2023 1:27 PM [facility] Monocyte Absolute 0.41 0.15 - 1.00 x10E9/L 11/21/2023 1:27 PM [facility] Eosinophil Absolute 0.11 0.00 - 0.60 x10E9/L 11/21/2023 1:27 PM [facility] Basophil Absolute 0.05 0.00 - 0.13 x10E9/L 11/21/2023 1:27 PM [facility] Blood BLOOD SPECIMEN / Unknown Lab Venipuncture / Unknown 11/21/2023 12:45 PM CDT 11/21/2023 1:21 PM T Felicia Olivera MD LAB - HEMATOLOGY ORD ERABLES [facility] [address] [place] [address] [phone] * (ABNORMAL) COMPREHENSIVE METABOLIC PANEL (11/21/2023 12:45 PM [facility]) Only the most recent of3 resultswithin the time period is included. BUN 15 7 - 26 mg/dL 11/21/2023 1:52 PM [facility] Creatinine 0.87 0.56 - 0.96 mg/dL 11/21/2023 1:52 PM [facility] Sodium 141 136 - 145 mmol/L 11/21/2023 1:52 PM [facility] Potassium 3.5 3.5 - 4.5 mmol/L 11/21/2023 1:52 PM [facility] Chloride 101 98 - 107 mmol/L 11/21/2023 1:52 PM [facility] CO2 29 22 - 29 mmol/L 11/21/2023 1:52 PM [facility] Glucose 210(H) 70 - 115 mg/dL 11/21/2023 1:52 PM [facility] Calcium 9.2 8.4 - 10.2 mg/dL 11/21/2023 1:52 PM [facility] Protein Total 8.6(H) 6.0 - 8.3 g/dL 11/21/2023 1:52 PM [facility] Albumin 3.4 3.4 - 5.0 g/dL 11/21/2023 1:52 PM [facility] Bilirubin Total 0.3 0.2 - 1.2 mg/dL 11/21/2023 1:52 PM [facility] Alkaline Phosphatase 149 40 - 150 U/L 11/21/2023 1:52 PM [facility] ALT 18 5 - 55 U/L 11/21/2023 1:52 PM [facility] AST 18 5 - 34 U/L 11/21/2023 1:52 PM [facility] Anion Gap 11 6 - 16 11/21/2023 1:52 PM [facility] BUN/Creatinine Ratio 17 7 - 23 11/21/2023 1:52 PM [facility] Osmolality Calculated 299(H) 275 - 295 mOsm/kg 11/21/2023 1:52 PM CDT [facility] Albumin/Globulin Ratio 0.7(L) 1.1 - 2.3 11/21/2023 1:52 PM CDT [facility] eGFR by CKD-EPI 80(L) >=90 mL/min/1.7 3 m2 11/21/2023 1:52 PM CDT [facility] Blood BLOOD SPECIMEN / Unknown Lab Venipuncture / Unknown 11/21/2023 12:45 PM CDT 11/21/2023 1:21 PM CDT Felicia Olivera MD LAB - CHEMISTRY EFRNE FRANK Performing Organization Address City/[facility]/ZIP Co de Phone Number [facility] [address] [place] [address], [facility] [phone] * (ABNORMAL) GLUCOSE ACCUCHECK (03/23/2016 7:20 AM [facility]) Only the most recent of40 resultswithin the time period is included. Pathologist [facility] Glucose, Fingerstick 117(H) 70-115mg/d L mg/dL [facility] Comment:Fuel Technician: ABDIFATAH MARTINEZ 03/23/2016 7:20 AM [facility] Suzy Lara MD LAB - CHEMISTRY ORDERABLES Performing Organization Address City/[facility]/ZIP Co de Phone Number [facility]) * (ABNORMAL) BASIC METABOLIC PANEL (CALCIUM TOTAL) (03/23/2016 2:40 AM [facility]) Only the most recent of7 resultswithin the time period is included. BUN 12 7 - 26 mg/dL [facility] Creatinine 0.7 0.6 - 1.2 mg/dL [facility] Sodium 139 136 - 145 mmol/L [facility] Potassium 3.5 3.5 - 4.5 mmol/L [facility] Chloride 107 98 - 107 mmol/L [facility] CO2 23 22 - 29 mmol/L [facility] Glucose 133(H) 70 - 115 mg/dL [facility] Calcium 8.6 8.4 - 10.2 mg/dL [facility] Anion Gap 13 8 - 18 [facility] BUN/Creatinine Ratio 17 7 - 23 [facility] Osmolality Calculated 290 270 - 300 mOsm/kg [facility] eGFR >60 >60 mL/min/1.7 3 m2 [facility] Blood specimen (specimen) BLOOD SPECIMEN / Unknown 03/23/2016 2:40 AM [facility] 03/23/2016 2:52 AM [facility] Brigid Schultz MD LAB - CHEMISTRY ORDE ZAC Performing Organization Address City/[facility]/ZIP Co de Phone Number [address] [phone] * LIPASE BLOOD (03/22/2016 2:38 AM [facility]) Only the most recent of2 resultswithin the time period is included. Lipase 22 8 - 78 Units/L [facility] Blood specimen (specimen) BLOOD SPECIMEN / Unknown 03/22/2016 2:38 AM [facility] 03/22/2016 3:02 AM [facility] Suzy Lara MD LAB - CHEMISTRY ORDERABLES Performing Organization Address [facility] Co de Phone Number [address] [phone] * XR ABD OBSTRUCTION SERIES 2VW (03/21/2016 2:37 PM [facility]) Anatomical Region Laterality Modality Abdomen Other Impressions 03/21/2016 4:50 PM [facility] IMPRESSION: 1. No evidence of bowel obstruction. 2. A 1.1 cm calcification adjacent to the left iliac crest, which could represent an enterolith or ureteral stone. Dictated by Bryce Jones MD (Resident). I, Dr. STUART CORDON M.D. have personally reviewed and interpreted this examination/study. This report was electronically signed by STURAT CORDON M.D. ??on 03/21/2016 4:50 PM . Narrative 03/21/2016 4:50 PM [facility] EXAMINATION: XR ABD OBSTRUCTION SERIES HISTORY: nausea [...] M.D. on03/21/2016 4:50 PM . Tricia Bragg SPECIAL DUTY NURSE-BUSINESS DEVELOPMENT AGENT DIAGNOSTIC IM AGING ORDERABLES * (ABNORMAL) VANCOMYCIN LEVEL TROUGH (03/20/2016 2:30 PM [facility]) Only the most recent of3 resultswithin the time period is included. Vancomycin Trough 20.4(H) 10.0 - 20.0 mcg/mL [facility] Blood specimen (specimen) BLOOD SPECIMEN / Unknown 03/20/2016 2:30 PM [facility] 03/20/2016 3:39 PM [facility] Narrative [facility] - 03/20/2016 3:56 PM [facility] Please change collection time to 14:30 today. ??Already drawn and sent to lab with patient label on. ??Thank you Libby Castellon MD LAB - CHEMISTRY EFREN FRANK [facility] Organization Address City/State/ZIP Co de Phone Number [facility] [address] [phone] * US ABDOMEN LIMITED (03/20/2016 11:13 AM [facility]) Only the most recent of2 resultswithin the time period is included. Anatomical Region Laterality Modality Abdomen Other Impressions 03/20/2016 1:27 PM [facility] IMPRESSION: 1. No evidence of acute cholecystitis. 2. Right hydronephrosis. Dictated by Reynaldo Flores MD (radiology technician). This report was approved ??by Reynaldo Flores ?? on 03/20/2016 11:41 AM . I, Dr. CAITLIN MEHTA M.D. have personally reviewed and interpreted this examination/study. This report was electronically signed by CAITLIN MEHTA M.D. ??on 03/20/2016 1:27 PM . Narrative 03/20/2016 1:27 PM [facility] EXAMINATION: Limited right upper quadrant abdominal sonogram [...] Right hydronephrosis. Dictated by Reynaldo Flores MD (radiology technician). This report was approved by Reynaldo Flores on 03/20/2016 11:41 AM . I, Dr. CAITLIN MEHTA M.D. have personally reviewed and interpreted thisexamination/study. This report was electronically signed by CAITLIN MEHTA M.D. on 03/20/20161:27 PM . Suzy Lara MD US ORDERABLES * (ABNORMAL) CULTURE AEROBIC (03/17/2016 6:30 PM [facility]) Culture Aerobic No Growth at 24 hours [facility] Culture Aerobic COAG NEG STAPH SPECIES(A) [facility] Comment: Light Growth Coagulase Neg Staph Species 4 colonies at 48 hours. Gram Stain Rare Polymorphonuclear Cells [facility] Gram Stain No Organism Seen [facility] Abscess (Abscess (site in comments)) 03/17/2016 6:30 PM [facility] 03/17/2016 8:07 PM [facility] Narrative [facility] - 03/19/2016 5:39 PM [facility] Posterior neck Specimen Type->Abscess Specimen Source->Abscess (must specify site in comments) Gram Stains are routinely screened for the presence of Polymorphonuclear Cells. Suzy Lara MD LAB - MICROBIOL OGY ORDERABLES Performing Organization Address City/State/[facility] Co de Phone Number [address] [phone] * CT NECK SOFT TISSUE W CONT (03/17/2016 3:48 PM [facility]) Anatomical Region Laterality Modality Head Other Impressions 03/17/2016 3:59 PM [facility] IMPRESSION: 1. Small abscess in the nuchal subcutaneous fat at the level of C2-3 superficial to the paraspinal musculature without evidence of deep extension. No evidence of cervical discitis or osteomyelitis. 2. Layering debris in the vitreous segment of the right orbit, correlate with ophthalmologic exam. This report was electronically signed by ANITONE CAPUTO M.D. ??on 03/17/2016 3:59 PM . Narrative 03/17/2016 3:59 PM [facility] EXAMINATION: ??Computed tomography (CT) of the neck [...] URINALYSIS W/MICROSCOPIC NO CULTURE (03/17/2016 9:30 AM [facility]) Color UA Yellow Straw, Yellow, Colorless, Light Yellow [facility] Clarity UA Hazy(A) Clear [facility] Specific [place] UA 1.027 1.001 - 1.030 [facility] pH UA 7.0 5.0 - 8.0 [facility] Protein UA Trace(A) <=20 mg/dL [facility] Glucose UA Negative Negative mg/dL [facility] Ketone UA Negative Negative mg/dL [facility] Bilirubin UA Negative Negative mg/dL [facility] Blood UA Negative Negative [facility] Nitrite UA Negative Negative [facility] Leukocyte Esterase Negative Negative [facility] Urobilinogen UA <2.0 <2.0 mg/dL [facility] RBC UA 3 0 - 8 /HPF [facility] WBC UA 2 0 - 2 /HPF [facility] Mucus UA Occasional( A) None /LPF [facility] Amorphous Crystals Moderate Rare, Occasional, Few, Moderate, None /HPF [facility] Urine specimen (specimen) 03/17/2016 9:30 AM [facility] 03/17/2016 9:30 AM [facility] Suzy Lara MD LAB - [place]INALY[place] [address], [facility] [phone] * CULTURE BLOOD (03/17/2016 6:53 AM [facility]) Only the most recent of4 resultswithin the time period is included. Culture Blood No Growth at 5 days [facility] Blood specimen (specimen) (Venous, Peripheral) 03/17/2016 6:53 AM [facility] 03/17/2016 6:58 AM [facility] Narrative [facility] - 03/22/2016 7:00 AM [facility] Draw 15 minutes after Culture 1 from a different site Suzy Lara MD LAB - MICROBIOL OGY ORDERABLES Performing Organization Address [facility] [place] [address], [facility] [phone] * XR CHEST 1VW PORTABLE (03/17/2016 6:00 AM [facility]) Only the most recent of2 resultswithin the time period is included. Anatomical Region Laterality Modality Chest Other Impressions 03/17/2016 2:19 PM [facility] IMPRESSION: The lung volumes are small. There is no focal consolidation, pleural effusion, or pneumothorax. The cardiomediastinal silhouette is normal. Dictated by Bryce Jones MD (Resident). I, Dr. CHERISE HORTA M.D. have personally reviewed and interpreted this examination/study. This report was electronically signed by CHERISE HORTA M.D. ??on 03/17/2016 2:19 PM . Narrative 03/17/2016 2:19 PM [facility] EXAMINATION: PX CHEST 1 VW HISTORY: febrile [...] ORDERABLES * CK BLOOD (03/16/2016 8:37 PM [facility]) CK Total 170 30 - 200 Units/L [facility] Blood specimen (specimen) BLOOD SPECIMEN / Unknown 03/16/2016 8:37 PM [facility] 03/16/2016 8:40 PM [facility] Michelet Magallanes MD LAB - CHEMISTRY EFREN FRANK Performing Organization Address City/[facility]/ZIP Co de Phone Number [address] [phone] * VAS ARTERIAL ANKLE ARM INDEX (03/16/2016 2:08 PM [facility]) Anatomical Region Laterality Modality Other Suzy Lara MD VASCULAR LAB OR DERABLES * GLUCOSE - POINT OF CARE (AMB) [facility] (03/16/2016 1:05 PM [facility]) Only the most recent of8 resultswithin the time period is included. Brigid Schultz MD LAB - POINT OF CARE ORDERABLES [facility] * (ABNORMAL) URINALYSIS REFLEX TO MICROSCOPIC NO CULTURE (03/15/2016 8:09 PM [facility]) Color UA Yellow Straw, Yellow, Colorless, Light Yellow [facility] Clarity UA Clear Clear [facility] Specific [place] UA 1.006 1.001 - 1.030 [facility] pH UA 6.0 5.0 - 8.0 [facility] Protein UA 50(A) <=20 mg/dL [facility] Glucose UA 50(A) Negative mg/dL [facility] Ketone UA Trace(A) Negative mg/dL [facility] Bilirubin UA Negative Negative mg/dL [facility] Blood UA Negative Negative [facility] Nitrite UA Negative Negative [facility] Leukocyte Esterase Negative Negative [facility] Urobilinogen UA <2.0 <2.0 mg/dL [facility] RBC UA 2 0 - 8 /HPF [facility] WBC UA <1 0 - 2 /HPF [facility] Bacteria UA Rare Rare, Occasional, None /HPF [facility] Squamous Epithelial Cells UA 1 0 - 1 /HPF [facility] Urine specimen (specimen) 03/15/2016 8:09 PM [facility] 03/15/2016 8:11 PM [facility] Michelet Magallanes MD LAB - URINALYSIS ORD ERABLES [place] [address] [address] [phone] * (ABNORMAL) BLOOD GASES JOANIE (03/15/2016 6:09 PM [facility]) pH Mixed Venous 7.45(H) 7.30 - 7.40 [facility] pCO2 Mixed Venous 39(L) 40 - 46 mmHg [facility] pO2 Mixed Venous 23(L) 35 - 42 mmHg [facility] HCO3 Mixed Venous 25.9 22.0 - 26.0 mmol/L [facility] TCO2 Mixed Venous 27.0 25.0 - 29.0 mmol/L [facility] Base Excess Venous 1.7 -2.0 - 2.0 mmol/L [facility] Hemoglobin Mixed Venous 8.5(L) 12.0 - 15.5 g/dL [facility] Oxyhemoglobin Mixed Venous 48.3(L) 66.0 - 77.0 % [facility] Carboxyhemoglobin Venous 0.3 0.0 - 3.0 % [facility] Methemoglobin 0.3 0.0 - 2.0 % [facility] FI O2 Mixed Venous 21.0 % [facility] Blood specimen (specimen) BLOOD SPECIMEN / Unknown 03/15/2016 6:09 PM [facility] 03/15/2016 6:18 PM [facility] Narrative [facility] - 03/15/2016 6:27 PM [facility] FI02->21 Michelet Magallanes MD LAB - BLOOD GASES OR DERABLES [address] [phone] * (ABNORMAL) LACTIC ACID BLOOD (03/15/2016 6:09 PM [facility]) Lactic Acid-Stat 2.2(HH) 0.5 - 2.0 mmol/L [facility] Comment:RESULTS CALLED TO AN D READ BACK BY Edyta Hudson RN AT 6:40 PM, 03/15/2016 Blood specimen (specimen) BLOOD SPECIMEN / Unknown 03/15/2016 6:09 PM [facility] 03/15/2016 6:18 PM [facility] Michelet Magallanes MD LAB - CHEMISTRY ORDE RABLES Performing Organization Address City/[facility]/ZIP Co de Phone Number [address] [phone] * (ABNORMAL) HEMOGLOBIN A1C (03/15/2016 6:09 PM [facility]) Hemoglobin A1c 9.6(H) 4.4 - 6.3 % [facility] Estimated Average Glucose 229 mg/dL [facility] Comment: HbA1c Interpretation: Treatment target values recommended by ADA and other clinical organizations should be used to evaluate metabolic control in patients. Treatment Target Values: Normal : < 5.7% Pre-diabetes: 5.7-6.4% Diabetes: Equal to or greater than 6.5% Reference: [place] [employer] Standards of Care in Diabetes -2014 In patients 70 years and older consider HbA1c target range of 7.0-7.5% Reference: ??Diabetes Mellitus in Older People: Position Statement on behalf of the International Association of Gerontology and Geriatrics (IAGG), the Diabetes Working Democrat for Older People (EDWPOP), and the International Task Force of Experts in Diabetes. ??Conor Mcintyre et al. J [employer]. 2012 Test results diagnostic [...] BLOOD SPECIMEN / Unknown 03/15/2016 6:09 PM [facility] 03/15/2016 6:18 PM [facility] Suzy Lara MD LAB - CHEMISTRY ORDERABLES Performing Organization Address [facility]/ZIP Co de Phone Number [address] [phone] * (ABNORMAL) ERYTHROCYTE SEDIMENTATION RATE (03/15/2016 6:09 PM [facility]) Erythrocyte Sedimentation Rate Westergren 73(H) 0 - 20 MM/HR [facility] Blood specimen (specimen) BLOOD SPECIMEN / Unknown 03/15/2016 6:09 PM [facility] 03/15/2016 6:18 PM [facility] Michelet Magallanes MD LAB - HEMATOLOGY ORD ERABLES Performing Organization Address [facility] Co de Phone Number [address] [phone] * (ABNORMAL) HYDROXYBUTYRATE BETA (03/15/2016 6:09 PM [facility]) Beta-Hydroxybu tyrate 0.40(H) 0.02 - 0.27 mmol/L [facility] Blood specimen (specimen) BLOOD SPECIMEN / Unknown 03/15/2016 6:09 PM [facility] 03/15/2016 6:19 PM [facility] Michelet Magallanes MD LAB - CHEMISTRY ORDE RABLES Performing Organization Address [facility] Co de Phone Number [address] [phone] * (ABNORMAL) C-REACTIVE PROTEIN (03/15/2016 6:09 PM [facility]) C-Reactive Protein 5.5(H) <=0.5 mg/dL [facility] Blood specimen (specimen) BLOOD SPECIMEN / Unknown 03/15/2016 6:09 PM VACUUM SPINDLE SANDER 03/15/2016 6:18 PM VACUUM SPINDLE SANDER Michelet Magallanes MD LAB - CHEMISTRY ORDE ZAC Performing Organization Address [facility]/State/ZIP Co de Phone Number [address] [phone] * PTT U (03/15/2016 6:08 PM VACUUM SPINDLE SANDER) APTT 25.5 23.0 - 38.4 Seconds [facility] Comment:Suggested therapeuti c range for full dose I.V. heparin therapy for venous thromboembolism is 66.0-91.0 seconds. Blood specimen (specimen) BLOOD SPECIMEN / Unknown 03/15/2016 6:08 PM VACUUM SPINDLE SANDER 03/15/2016 6:18 PM VACUUM SPINDLE SANDER Narrative [facility] - 03/15/2016 6:31 PM VACUUM SPINDLE SANDER Please ensure that the aPTT specimen is received in the clinical lab within 1 hour of collection if it is used for therapeutic heparin monitoring. Processing of heparinized specimens older than 1 hour may result in inaccurate test results. Is patient on Heparin, Argatroban or Dabigatran?->N Michelet Magallanes MD LAB - COAGULATION OR DERABLES Performing Organization Address [facility]/ZIP Co de Phone Number [address] [phone] * PT-INR U (03/15/2016 6:08 PM VACUUM SPINDLE SANDER) PT 12.9 12.1 - 14.8 Seconds [facility] INR 1.0 See Comment [facility] Comment: Suggested therapeutic range for low-intensity coumadin therapy for venous thromboembolism prophylaxis is an INR of 2.0-3.0. ??For high risk patients (Mitral Valve Prosthesis, Atrial Fibrillation, history of TIA/stroke), suggested prophylactic therapeutic range is an INR of 2.5-3.5. Blood specimen (specimen) BLOOD SPECIMEN / Unknown 03/15/2016 6:08 PM VACUUM SPINDLE SANDER 03/15/2016 6:18 PM VACUUM SPINDLE SANDER Narrative [facility] - 03/15/2016 6:30 PM VACUUM SPINDLE SANDER Is patient on Heparin, Argatroban or Dabigatran?->N Michelet Magallanes MD LAB - COAGULATION OR DERABLES [facility] [address] [place] [address], [facility] [phone] * XR FOOT LEFT 3VW OR MORE (03/15/2016 5:44 PM VACUUM SPINDLE SANDER) Only the most recent of3 resultswithin the time period is included. Anatomical Region Laterality Modality Ankle / Foot Other Impressions 03/16/2016 8:34 AM VACUUM SPINDLE SANDER IMPRESSION: 1. Cortical destruction of the head of the second metatarsal consistent with osteomyelitis. 2. No acute fracture or dislocation identified. Dictated by Bryce Jones MD (radiology technician). I, Dr. CHERISE HORTA M.D. have personally reviewed and interpreted this examination/study. This report was electronically signed by CHERISE HORTA M.D. ??on 03/16/2016 8:34 AM . Narrative 03/16/2016 8:34 AM VACUUM SPINDLE SANDER EXAMINATION: PX FOOT LEFT 3+ VW HISTORY: [...] dislocation identified. Dictated by Bryce Jones MD (radiology technician). I, Dr. CHERISE HORTA M.D. have personally reviewed and interpreted thisexamination/study. This report was electronically signed by CHERISE HORTA M.D. on 03/16/20168:34 AM . Michelet Magallanes MD DIAGNOSTIC IMAGING O RDERABLES * CARDIAC EKG ORDER (03/20/2012 9:37 AM VACUUM SPINDLE SANDER) Narrative 03/20/2012 9:37 AM VACUUM SPINDLE SANDER Procedure Note Document, Scanned - 03/20/2012 9:37 AM CST Scanned Document CARDIAC SERVICES ORD ERABLES * CT RENAL STONE (03/11/2012 12:00 PM VACUUM SPINDLE SANDER) Anatomical Region Laterality Modality Abdomen Computed Tomogra phy 03/11/2012 12:0 5 PM VACUUM SPINDLE SANDER Impressions 03/11/2012 12:05 PM VACUUM SPINDLE SANDER The right kidney appears severely hydronephrotic with gross calyceal dilatation. The right ureter is relatively small however an obstruction may be present at the level of the ureterovesical junction. No definite ureteral calculi are seen on the right. A retrograde study would be recommended for further evaluation. Small nonobstructing renal calculi are present bilaterally. This examination was transcribed using the [employer] voice recognition system without human printing roller handler. ??In an effort to expedite patient care, this report has not been adjusted for typographical, grammatical, and syntax by a trained medical education specialist. Narrative 03/11/2012 12:[address] Abdomen and Pelvis Noncontrast Indication: Abdominal [...] bilaterally. This examination was transcribed using the [employer] voice recognition system without human printing roller handler. In an effort to expedite patient care, this report has not been adjusted for typographical, grammatical, and syntax by a trained medical education specialist. Ashley Montoya MD CT ORDERABLES * (ABNORMAL) URINALYSIS ROUTINE W/REFLEX TO CULTURE (03/11/2012 10:20 AM VACUUM SPINDLE SANDER) Color UA YELLOW [facility] Character UA CLOUDY [facility] Specific [place] UA 1.018 1.005 - 1.0300 [facility] pH UA 7.0 4.6 - 8.0 pH Units [facility] Leukocyte UA NEGATIVE Negative /ul [facility] Nitrite UA NEGATIVE Negative [facility] Protein UA 100 Negative mg/dL [facility] Glucose UA 500 Normal mg/dL [facility] Ketone UA TRACE Negative mg/dL [facility] Urobilinogen UA 1.0 Normal Ailin Units [facility] Bilirubin UA NEGATIVE Negative mg/dL [facility] Blood UA NEGATIVE Negative /ul [facility] WBC UA 5-10(H) <5 /HPF [facility] RBC UA 0-2 <5 /HPF [facility] Epithelial Cell UA 5-10(H) <5 /HPF [facility] Casts UA 5-10(H) <2 /LPF [facility] Bacteria UA NEGATIVE [facility] Urine Culture No culture to be done per protocol. [facility] Urine specimen (specimen) URINE SPECIMEN OBTAINED BY CLEAN CATCH PROCEDURE / Unknown 03/11/2012 10:20 AM VACUUM SPINDLE SANDER 03/11/2012 10:20 AM VACUUM SPINDLE SANDER Ashley Montoya MD LAB - URINALYSIS ORD ERABLES Performing Organization Address City/[facility] Co de Phone Number [facility] [address] [place] [address] * HCG URINE QUALITATIVE - POINT OF CARE (IP) (03/11/2012 10:19 AM VACUUM SPINDLE SANDER) HCG Qual Urine negative Negative [facility] QC Verified yes Yes [facility] POC T TESTING Urine specimen (specimen) URINE / Unknown 03/11/2012 10:19 AM VACUUM SPINDLE SANDER Ashley Montoya MD LAB - POINT OF CARE ORDERABLES Performing Organization Address [facility] de Phone Number [facility] [address] [place] [address] * EKG 12-LEAD (03/11/2012 8:51 AM VACUUM SPINDLE SANDER) Ventricular Rate 89 BPM [facility] Atrial Rate 89 BPM [facility] P-R Interval 158 ms [facility] QRS Duration ms 78 ms [facility] Q-T Interval ms 378 ms [facility] QTC Calculation (Bezet) 459 ms [facility] Calculated P [place] 46 degrees [facility] Calculated R [place] 19 degrees [facility] Calculated T [place] 8 degrees [facility] Interpretation EKG Normal sinus rhythm Moderate voltage criteria for LVH, may be normal variant Nonspecific T wave abnormality Abnormal ECG No previous ECGs available Confirmed by BETH RYDER, [facility] ([id number]) on 03/12/2012 11:05:52 AM [facility] 03/11/2012 8:51 AM VACUUM SPINDLE SANDER 03/12/2012 11:05 AM VACUUM SPINDLE SANDER Narrative [facility] - 03/12/2012 11:07 AM VACUUM SPINDLE SANDER Procedure Note Document, Scanned - 03/12/2012 7:34 AM CST Transcriptions Document, Scanned - 03/12/2012 11:07 AM CST Ashley Montoya MD ECG ORDERABLES [facility] * AMYLASE BLOOD (03/11/2012 8:35 AM VACUUM SPINDLE SANDER) Amylase 24 15 - 115 U/L [facility] Blood specimen (specimen) BLOOD SPECIMEN / Unknown 03/11/2012 8:35 AM VACUUM SPINDLE SANDER 03/11/2012 8:43 AM VACUUM SPINDLE SANDER Narrative [facility] - 03/11/2012 9:05 AM VACUUM SPINDLE SANDER Perform for patients with UPPER abd* Ashley Montoya MD LAB - CHEMISTRY EFREN FRANK Performing Organization Address City/[facility]/ZIP Co de Phone Number [facility] [address] [place] [phone] Care Teams Clinical Research Associate Relationship Specialty Start Date End Date Abiodun Segura II, MD [address] [place] [address] PCP - General Family Medicine 10/30/23
--- OUTSIDE RECORDS SUMMARY | 2024-03-03 01:14 | XMS_ITS | Encounter Summary ---
Author Organization [facility] Address [address] [facility] [address] Care Team Providers Care Hoseman Name Role Phone Jarred Rod MD Primary Care Provider Unav ailable Encounter Details Date Type Department Care Team (Latest Contact Info) Description 01/22/2015 1:01 PM ANSWERING SERVICE AGENT - 01/22/2015 11:59 PM [facility] Hospital Encounter [facility] - [facility]oped[facility] [address] [place] [address] Oj Alanis, DO [address] [facility] [address] [place] [phone] Discharge Disposition: Home or Self Care Social [...] 3VW OR MORE Routine 01/22/2015 2:18 PM ANSWERING SERVICE AGENT Left foot pain documented in this encounter Results * XR FOOT 3+ VW LEFT (01/22/2015 2:18 PM ANSWERING SERVICE AGENT) Anatomical Region Laterality Modality Ankle / Foot Radiographic Shelli ging 01/22/2015 2:39 PM ANSWERING SERVICE AGENT Impressions 01/22/2015 2:41 PM ANSWERING SERVICE AGENT Left pes planus and midfoot osteoarthritis. Narrative 01/22/2015 2:41 PM ANSWERING SERVICE AGENT Examination: Left foot minimum 3 views History: [...] limb documented in this encounter Care Teams Hoseman Relationship Specialty Start Date End Date Jarred Rod MD PCP - General 03/11/12 10/29/23 documented as of this encounter
--- OUTSIDE RECORDS SUMMARY | 2024-03-03 01:14 | XMS_ITS | Clinical Summary ---
Author Organization [facility] Address [address] [place] [address] Care Team Providers Care Paper Folder Name Role Phone Colton SILVEIRA MD, Abiodun Rushing Primary Care Provider Source Comments [facility],non-owned Affiliates and Associated Physician Practices is amultiple site organization consisting of ambulatory clinics and hospital sitesin [place], [place], [place] and [place]. This disclosure is being madepursuant to the Care Everywhere program and may not contain all information available regarding this patient. Last updated 17.[facility] Allergies Active Allergy Reactions Criticality Noted [...] DT Respiratory Rate 12 03/23/2016 4:52 AM MANAGER REIMBURSEMENT Oxygen Saturation 99% 11/21/2023 10:21 AM CDT [...] 7 - 26 mg/dL 11/21/2023 1:52 PM [facility] Creatinine 0.87 0.56 - 0.96 mg/dL 11/21/2023 1:52 PM [facility] Sodium 141 136 - 145 mmol/L 11/21/2023 1:52 PM [facility] Potassium 3.5 3.5 - 4.5 mmol/L 11/21/2023 1:52 PM [facility] Chloride 101 98 - 107 mmol/L 11/21/2023 1:52 PM [facility] CO2 29 22 - 29 mmol/L 11/21/2023 1:52 PM [facility] Glucose 210(H) 70 - 115 mg/dL 11/21/2023 1:52 PM [facility] Calcium 9.2 8.4 - 10.2 mg/dL 11/21/2023 1:52 PM [facility] Protein Total 8.6(H) 6.0 - 8.3 g/dL 11/21/2023 1:52 PM [facility] Albumin 3.4 3.4 - 5.0 g/dL 11/21/2023 1:52 PM [facility] Bilirubin Total 0.3 0.2 - 1.2 mg/dL 11/21/2023 1:52 PM [facility] Alkaline Phosphatase 149 40 - 150 U/L 11/21/2023 1:52 PM [facility] ALT 18 5 - 55 U/L 11/21/2023 1:52 PM CDT [facility] AST 18 5 - 34 U/L 11/21/2023 1:52 PM CDT [facility] Anion Gap 11 6 - 16 11/21/2023 1:52 PM T [facility] BUN/Creatinine Ratio 17 7 - 23 11/21/2023 1:52 PM T [facility] Osmolality Calculated 299(H) 275 - 295 mOsm/kg 11/21/2023 1:52 PM T [facility] Albumin/Globulin Ratio 0.7(L) 1.1 - 2.3 11/21/2023 1:52 PM T [facility] eGFR by CKD-EPI 80(L) >=90 mL/min/1.7 3 m2 11/21/2023 1:52 PM T [facility] Blood BLOOD SPECIMEN / Unknown Lab Venipuncture / Unknown 11/21/2023 12:45 PM CDT 11/21/2023 1:21 PM CDT Felicia Olivera MD LAB - CHEMISTRY EFREN FRANK [facility] Organization Address City/State/ZIP Co de Phone Number [facility] [address] [place] [address], [facility] [phone] from Last 3 Months or Most Recently Relevant to Health Maintenance Care Teams Paper Folder Relationship Specialty Start Date End Date Abiodun Segura II, MD [address] [place], [place] [phone] PCP - General Family Medicine 10/30/23
--- OUTSIDE RECORDS SUMMARY | 2024-03-03 01:14 | XMS_ITS | Encounter Summary ---
Author Organization [facility] Address [address] [place] [address] Care Team Providers Care Web Support Engineer Name Role Phone Colton SILVEIRA MD, Abiodun Rushing Primary Care Provider Encounter Details Date Type Department Care Team (Late st Contact Info) Description 11/28/2023 Orders Only [facility] - Infectious Disease [address] [place] [address], [place] [phone] Felicia Olivera MD [address] [place] [address] Recurrent UTI Social History Tobacco Use Types [...] specified documented in this encounter Care Teams Web Support Engineer Relationship Specialty Start Date End Date Abiodun Segura II, MD [address] [place] [address] PCP - General Family Medicine 10/30/23 documented as of this encounter
--- OUTSIDE RECORDS SUMMARY | 2024-03-03 01:14 | XMS_ITS | Referral Summary ---
Author Organization [facility] Address [address] [facility] [place] [address] Care Team Providers Care Rafter Cutting Machine Operator Name Role Phone Colton SILVEIRA MD, Abiodun Rushing Primary Care Provider Source Comments [facility],non-owned Affiliates and Associated Physician Practices is amultiple site organization consisting of ambulatory clinics and hospital sitesin [place], [place], [place] and [place]. This disclosure is being madepursuant to the Care Everywhere program and may not contain all information available regarding this patient. Last updated 17.[facility] Allergies Active Allergy Reactions Criticality Noted Date [...] DT Respiratory Rate 12 03/23/2016 4:52 AM [facility] Oxygen Saturation 99% 11/21/2023 10:21 AM CDT [...] 7 - 26 mg/dL 11/21/2023 1:52 PM [facility] Creatinine 0.87 0.56 - 0.96 mg/dL 11/21/2023 1:52 PM [facility] Sodium 141 136 - 145 mmol/L 11/21/2023 1:52 PM [facility] Potassium 3.5 3.5 - 4.5 mmol/L 11/21/2023 1:52 PM [facility] Chloride 101 98 - 107 mmol/L 11/21/2023 1:52 PM [facility] CO2 29 22 - 29 mmol/L 11/21/2023 1:52 PM [facility] Glucose 210(H) 70 - 115 mg/dL 11/21/2023 1:52 PM [facility] Calcium 9.2 8.4 - 10.2 mg/dL 11/21/2023 1:52 PM [facility] Protein Total 8.6(H) 6.0 - 8.3 g/dL 11/21/2023 1:52 PM [facility] Albumin 3.4 3.4 - 5.0 g/dL 11/21/2023 1:52 PM [facility] Bilirubin Total 0.3 0.2 - 1.2 mg/dL 11/21/2023 1:52 PM [facility] Alkaline Phosphatase 149 40 - 150 U/L 11/21/2023 1:52 PM [facility] ALT 18 5 - 55 U/L 11/21/2023 1:52 PM [facility] AST 18 5 - 34 U/L 11/21/2023 1:52 PM [facility] Anion Gap 11 6 - 16 11/21/2023 1:52 PM [facility] BUN/Creatinine Ratio 17 7 - 23 11/21/2023 1:52 PM [facility] Osmolality Calculated 299(H) 275 - 295 mOsm/kg 11/21/2023 1:52 PM [facility] Albumin/Globulin Ratio 0.7(L) 1.1 - 2.3 11/21/2023 1:52 PM [facility] eGFR by CKD-EPI 80(L) >=90 mL/min/1.7 3 m2 11/21/2023 1:52 PM [facility] Blood BLOOD SPECIMEN / Unknown Lab Venipuncture / Unknown 11/21/2023 12:45 PM CDT 11/21/2023 1:21 PM CDT Felicia Olivera MD LAB - CHEMISTRY EFREN FRANK [facility] Organization Address City/State/ZIP Co de Phone Number [facility] [address] [place] [address], [place] [phone] from Last 3 Months or Most Recently Relevant to Health Maintenance Care Teams Rafter Cutting Machine Operator Relationship Specialty Start Date End Date Abiodun Segura II, MD [address] [place] [address] PCP - General Family Medicine 10/30/23
--- OUTSIDE RECORDS SUMMARY | 2024-03-03 01:14 | XMS_ITS | Encounter Summary ---
Author Organization [facility] Address [address] [place] [address] Care Team Providers Care Consulting Solution Director Name Role Phone Colton SILVEIRA MD, Abiodun Rushing Primary Care Provider Encounter Details Date Type Department Care Team (Late st Contact Info) Description 11/21/2023 10:00 AM CDT Office Visit [facility] - Infectious Disease [address] [place] [address], [place] [phone] Felicia Olivera MD [address] [place] [phone] Recurrent UTI (Primary Dx); Type 2 diabetes [...] for a kidney infection in February at [facility] and then in April 2023 at [facility] ( [facility] then [facility] where she was seen by ID) and was treated with IV antibiotics (meropenem) for 3 weeks at home through ?05/27/23 . No record found for the admission in April. Per record from Care Everywhere: 03/05/2023 she developed right flank pain, chills, fatigue, saw her PCP and was admitted from 03/05/2023-03/09/2023 at [facility] for UTI with known history of right [...] 04/24/2023. Per clinic note: CT 06/2019 at [facility]-renal stones, moderate right hydronephrosis 06/2020: Here with . Intermittent right flank pain, sometimes daily; worse with cough; sometimes positional. Activity unclear. Plan: Check CT done at [facility] in [place] in early 2020. Diuretic renal scan. Recurrent [...] Because of no ID specialist availability at [facility], she was referred to [facility]. She [...] Not seen by ID. 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 Still F/U vascular surgery as stated that [...] of intractable vomiting, abdominal pain. 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 In February 2023, at [facility], she tolerated Zosyn but had a [...] Enterococcus faecalis(A) JESSI 11/23/2023 11:19 AM CDT [facility] Urine MID-STREAM URINE SPECIMEN / Unknown [...] Olivera MD LAB - MICROBIOLOGY O RDERABLES [facility] [address] [place] [address], [facility] [phone] * (ABNORMAL) CBC WITH DIFFERENTIAL (11/21/2023 12:45 [...] 17.0 - 47.0 % 11/21/2023 1:27 PM [facility] Monocyte % 4.2 3.0 - 11.0 % 11/21/2023 1:27 PM CDT [facility] Eosinophil % 1.1 0.0 - 7.0 % 11/21/2023 1:27 PM T [facility] Basophil % 0.5 0.0 - 1.6 % 11/21/2023 1:27 PM T [facility] Immature Granulocytes % 0.2 0.0 - 1.0 % 11/21/2023 1:27 PM T [facility] Neutrophil Absolute 6.12 1.60 - 7.50 x10E9/L 11/21/2023 1:27 PM T [facility] Lymphocyte Absolute 3.03 1.00 - 4.40 x10E9/L [...] - HEMATOLOGY ORD ERABLES Performing Organization Address City/State/[facility] Co de Phone Number [facility] [address] [place] [address], [facility] [phone] * (ABNORMAL) COMPREHENSIVE METABOLIC PANEL (11/21/2023 12:45 PM CDT) BUN 15 7 - 26 mg/dL 11/21/2023 1:52 PM T [facility] Creatinine 0.87 0.56 - 0.96 mg/dL 11/21/2023 1:52 PM T [facility] Sodium 141 136 - 145 mmol/L 11/21/2023 1:52 PM T [facility] Potassium 3.5 3.5 - 4.5 mmol/L 11/21/2023 [...] 11/21/2023 12:45 PM CDT 11/21/2023 1:21 PM [facility] Felicia Olivera MD LAB - CHEMISTRY ORDE RABLES [facility] [address] [place] [address], [facility] [phone] * (ABNORMAL) URINALYSIS W/MICROSCOPIC REFLEX TO CULTURE (11/21/2023 12:45 PM CDT) Color UA Yellow Straw, Yellow 11/21/2023 1:38 PM [facility] Clarity UA Cloudy(A) Clear 11/21/2023 1:38 PM [facility] Specific [place] UA 1.014 1.005 - 1.030 11/21/2023 1:38 [...] 0-2, 3-5 /HPF 11/21/2023 1:38 PM CDT [facility] Mucus UA 1+ /LPF 11/21/2023 1:38 PM CDT [facility] Urine MID-STREAM URINE SPECIMEN / Unknown Collection / Unknown 11/21/2023 12:45 PM CDT 11/21/2023 1:12 PM CDT Narrative [facility] - 11/21/2023 1:38 PM CDT Lab Status, Culture Reflex Indicated. Felicia Olivera MD LAB - URINALYSIS ORD ERABLES [facility] [address] [place] [address], [facility] [phone] documented in this encounter Visit Diagnoses Diagnosis Recurrent UTI- Primary Urinary tract infection, site not specified Type 2 diabetes mellitus with retinopathy of both eyes, with long-term current use of insulin, macular edema presence unspecified, unspecified retinopathy severity (HCC) documented in this encounter Care Teams Consulting Solution Director Relationship Specialty Start Date End Date Abiodun Segura II, MD [address] [place] [address] PCP - General Family Medicine 10/30/23 documented as of this encounter
--- OUTSIDE RECORDS SUMMARY | 2024-03-03 01:14 | XMS_ITS | Encounter Summary ---
Author Organization [facility] Address [facility] [facility] [place] [address] Care Team Providers Care Financial Services Associate Name Role Phone Colton SILVEIRA MD, [...] on filedocumented in this encounter Care Teams Financial Services Associate Relationship Specialty Start Date End Date Abiodun Segura II, MD [address] [place] [id number] PCP - General Family Medicine 10/30/23 documented as of this encounter
--- OUTSIDE RECORDS SUMMARY | 2024-03-03 01:14 | XMS_ITS | Encounter Summary ---
Author Organization [facility] Address [address] [facility] [place] [address] Care Team Providers Care Installers Mechanical Name Role Phone Colton SILVEIRA MD, Abiodun Rushing Primary Care Provider Encounter Details Date Type Department Care Team (Latest Contact Info) Description 11/21/2023 11:31 AM CDT - 11/21/2023 11:59 PM T Hospital Encounter [facility] [address] [place] [address] Felicia Olivera MD [address] [place] [address] Discharge Disposition: Home or Self Care Social [...] on filedocumented in this encounter Care Teams Installers Mechanical Relationship Specialty Start Date End Date Abiodun Segura II, MD [address] [place] [address] PCP - General Family Medicine 10/30/23 documented as of this encounter
--- OUTSIDE RECORDS SUMMARY | 2024-03-03 01:14 | XMS_ITS | Encounter Summary ---
Author Organization [facility] Address [address] [place] [address] Care Team Providers Care Shoulder Sawyer Name Role Phone Colton SILVEIRA MD, Abiodun Rushing Primary Care Provider Reason for Visit * Reason Onset Date Comments Patient Requested Call 11/23/2023 Encounter Details Date Type Department Care Team (Late st Contact Info) Description 11/23/2023 Telephone [facility] - Centralized Scheduling [address] [place] [address] Felicia Olivera MD [address] [place] [address] Patient Requested Call Social History [...] sent to. It would be Charan at [facility] in [place]. documented in this encounter Plan of Treatment Not on file documented as of this encounter Visit Diagnoses Not on filedocumented in this encounter Care Teams Shoulder Sawyer Relationship Specialty Start Date End Date Abiodun Segura II, MD [address] [place] [address] PCP - General Family Medicine 10/30/23 documented as of this encounter
--- OUTSIDE RECORDS SUMMARY | 2024-03-03 01:15 | XMS_ITS | Encounter Summary ---
Author Organization [facility] Address [address] [place] [address] Care Team Providers Care Freight Tallier Name Role Phone Jarred Rod MD Primary Care Provider Unav ailable Reason for Visit * Reason Comments Vomiting Pt c/o n/v several t imes per day x 5 days, generalized abd pain, onset of diarrhea today. afebrile. Encounter Details Date Type Department Care Team (Late st Contact Info) Description 03/11/2012 8:17 AM ICE GRINDER - 03/11/2012 2:04 PM ICE GRINDER Emergency ER at [address] [address] Ashley Montoya MD [address] [place] [address] Hydronephrosis; Nausea And Vomiting; Flank [...] Comments Blood Pressure 125/73 03/11/2012 1:30 PM ICE GRINDER Pulse 85 03/11/2012 1:30 PM ICE GRINDER Temperature 36.7 ??C (98.1 ??F) 03/11/2012 8:21 AM CS T Respiratory Rate 18 03/11/2012 8:21 AM ICE GRINDER Oxygen Saturation 99% 03/11/2012 1:30 PM ICE GRINDER Inhaled Oxygen Concentration - - Weight 84.4 kg (186 lb) 03/11/2012 8:21 AM ICE GRINDER Height 167.6 cm (5' 6 ) 03/11/2012 8:21 AM ICE GRINDER Body Mass Index 30.02 03/11/2012 8:21 AM ICE GRINDER documented in this encounter Discharge Instructions * Discharge Instructions* Ashley Montoya MD - 03/11/2012 1:49 PM ICE GRINDER Hydronephrosis Hydronephrosis is an abnormal enlargement of [...] Document Reviewed: 01/19/2011 ExitCare?? Patient Information ??2011 [employer] GRINDER * Discharge Instructions* Document, Scanned - 03/17/2012 5:16 PM ICE GRINDER GRINDER documented in this encounter Medications at Time [...] 9:37 AM CSTAssociated Order(s): CARDIAC EKG ORDER GRINDER * Document, Scanned - 03/12/2012 11:07 AM CSTAssociated Order(s): EKG 12-LEAD GRINDER * Document, Scanned - 03/12/2012 7:34 AM CSTAssociated Order(s): EKG 12-LEAD GRINDER documented in this encounter ED Notes * Nallely Lyons RN - 03/11/2012 1:55 PM CST Pt discharge instructions given. Pt verbalizes understanding and has no further questions or concerns. Pt ambulatory and escorted with all belongings to the ED waiting room. GRINDER * Nallely Lyons RN - 03/11/2012 1:[address] Montoya at bedside. AN * Nallely Lyons RN - 03/11/2012 12:05 PM CST Report received from Biju CARRERA. Pt resting on stretcher in NAD, VSS. Call light in reach and familyat bedside. Will continue to monitor. AN * Biju Acevedo RN - 03/11/2012 12:02 PM CST Report given to DEANDRE Browning Biju Kapadia RN - 03/11/2012 11:52 AM [...] give urine sample. Will continue to monitor GRINDER * Ashley Montoya MD - 03/11/2012 8:35 AM CST Provider contact with the patient: 03/11/2012 08:35 Lena Alfaro [id number] [facility] History Chief Complaint Patient presents [...] normal. Heart rate:89. Ectopy: none. Blocks: none. [place]: normal. ST Segment Comments: NSTE T-Waves: normal. [...] % Lymph 37.6 20 - 43 % Daniels 5.5 5 - 13 % Eos 0.3 0 - 6 % Baso 0.2 0 - 2 % Gran Abs 3.58 2.01 - 7.14 Immature Gran Abs 0.02 0.00 - 0.06 Lymph Abs 2.40 1.07 - 3.94 Daniels Abs 0.35 0.26 - 1.07 Eos Abs [...] Color UA YELLOW Character UA CLOUDY Specific Friant UA 1.018 1.005 - 1.0300 pH Units [...] unremarkable. This examination was transcribed using the Pollsb voice recognition system without human outreach associate. In an effort to expedite patient care, this report has not been adjusted for typographical, grammatical, and syntax by a trained medical lab assistant. CT RENAL STONE Final Result: The right [...] bilaterally. This examination was transcribed using the Pollsb voice recognition system without human outreach associate. In an effort to expedite patient care, this report has not been adjusted for typographical, grammatical, and syntax by a trained medical lab assistant. Progress Notes 12:20 PM: [facility], Dr. Balbuena telephone information supervisor. 1:40 PM: Dr. Balbuena out of town. [...] ??? Flank pain Humble Briseno MD [address] [address] [phone] in 1 day Discharged to Home 03/11/2012 1:54 PM I have reviewed the information recorded by the scribe and agree with its accuracy and contents--Dr. Montoya Transcribed by George Martinez acting scribe on behalf of Dr. Montoya GRINDER documented in this encounter Miscellaneous Notes * Miscellaneous Scans - Document, Scanned - 03/15/2012 10:35 AM CST GRINDER documented in this encounter Plan of Treatment Not on file documented as of this encounter Procedures Procedure Name Priority Date/Time Associated Diagnosis Comments CARDIAC EKG ORDER 03/20/2012 9:3 [address] RENAL STONE STAT 03/11/2012 12:00 PM ICE GRINDER Hydronephrosis URINALYSIS REFLEX MICROSCOPIC REFLEX CULTURE STAT 03/11/2012 10:20 AM ICE GRINDER HCG URINE QUALITATIVE - POINT OF CARE STAT 03/11/2012 10:19 AM ICE GRINDER US ABDOMEN LIMITED STAT 03/11/2012 10 :02 AM ICE GRINDER EKG 12-LEAD STAT 03/11/2012 8:51 AM ICE GRINDER CBC W AUTO DIFFERENTIAL STAT 03/11/2012 8:35 AM ICE GRINDER COMPREHENSIVE METABOLIC PANEL STAT 03/11/2012 8:35 AM ICE GRINDER LIPASE BLOOD STAT 03/11/2012 8:35 AM ICE GRINDER AMYLASE BLOOD STAT 03/11/2012 8:35 AM ICE GRINDER documented in this encounter Results * CARDIAC EKG ORDER (03/20/2012 9:37 AM ICE GRINDER) Narrative 03/20/2012 9:37 AM ICE GRINDER Procedure Note Document, Scanned - 03/20/2012 9:37 AM CST Scanned Document CARDIAC SERVICES ORD ERABLES * CT RENAL STONE (03/11/2012 12:00 PM ICE GRINDER) Anatomical Region Laterality Modality Abdomen Computed Tomogra phy 03/11/2012 12:0 5 PM ICE GRINDER Impressions 03/11/2012 12:05 PM ICE GRINDER The right kidney appears severely hydronephrotic with gross calyceal dilatation. The right ureter is relatively small however an obstruction may be present at the level of the ureterovesical junction. No definite ureteral calculi are seen on the right. A retrograde study would be recommended for further evaluation. Small nonobstructing renal calculi are present bilaterally. This examination was transcribed using the Pollsb voice recognition system without human outreach associate. ??In an effort to expedite patient care, this report has not been adjusted for typographical, grammatical, and syntax by a trained medical lab assistant. Narrative 03/11/2012 12:[address] Abdomen and Pelvis Noncontrast Indication: Abdominal [...] bilaterally. This examination was transcribed using the Pollsb voice recognition system without human outreach associate. In an effort to expedite patient care, this report has not been adjusted for typographical, grammatical, and syntax by a trained medical lab assistant. Ashley Montoya MD CT ORDERABLES * (ABNORMAL) URINALYSIS ROUTINE W/REFLEX TO CULTURE (03/11/2012 10:20 AM ICE GRINDER) Color UA YELLOW [facility] Character UA CLOUDY [facility] Specific Friant UA 1.018 1.005 - 1.0300 [facility] pH UA 7.0 4.6 - 8.0 pH Units [facility] Leukocyte UA NEGATIVE Negative /ul [facility] Nitrite UA NEGATIVE Negative [facility] Protein UA 100 Negative mg/dL [facility] Glucose UA 500 Normal mg/dL [facility] Ketone UA TRACE Negative mg/dL [facility] Urobilinogen UA 1.0 Normal Ailin Units [facility] Bilirubin UA NEGATIVE Negative mg/dL [facility] Blood UA NEGATIVE Negative /ul [facility] WBC UA 5-10(H) <5 /HPF [facility] RBC UA 0-2 <5 /HPF [facility] Epithelial Cell UA 5-10(H) <5 /HPF [facility] Casts UA 5-10(H) <2 /LPF [facility] Bacteria UA NEGATIVE [facility] Urine Culture No culture to be done per protocol. [facility] Urine specimen (specimen) URINE SPECIMEN OBTAINED BY CLEAN CATCH PROCEDURE / Unknown 03/11/2012 10:20 AM ICE GRINDER 03/11/2012 10:20 AM ICE GRINDER Ashley Montoya MD LAB - URINALYSIS ORD ERABLES [facility] [address] [place] [address] * HCG URINE QUALITATIVE - POINT OF CARE (IP) (03/11/2012 10:19 AM ICE GRINDER) HCG Qual Urine negative Negative [facility] POCT TESTING QC Verified yes Yes [facility] POC T TESTING Urine specimen (specimen) URINE / Unknown 03/11/2012 10:19 AM ICE GRINDER Ashley Montoya MD LAB - POINT OF CARE ORDERABLES [facility] PO[facility] TESTING [address] [place] [address] * US ABD LIMITED (RUQ) (03/11/2012 10:02 AM ICE GRINDER) Anatomical Region Laterality Modality Abdomen Ultrasound 03/11/2012 10:0 7 AM ICE GRINDER Impressions 03/11/2012 10:07 AM ICE GRINDER Moderate to severe hydronephrosis of the right kidney is present and is of uncertain etiology. Right upper quadrant ultrasound is otherwise unremarkable. This examination was transcribed using the Pollsb voice recognition system without human outreach associate. ??In an effort to expedite patient care, this report has not been adjusted for typographical, grammatical, and syntax by a trained medical lab assistant. Narrative 03/11/2012 10:07 AM ICE GRINDER RIGHT UPPER QUADRANT ULTRASOUND INDICATION: Right upper [...] unremarkable. This examination was transcribed using the Pollsb voice recognition system without human outreach associate. In an effort to expedite patient care, this report has not been adjusted for typographical, grammatical, and syntax by a trained medical lab assistant. Ashley Montoya MD US ORDERABLES * EKG 12-LEAD (03/11/2012 8:51 AM ICE GRINDER) Ventricular Rate 89 BPM [facility] Atrial Rate 89 BPM [facility] P-R Interval 158 ms [facility] QRS Duration ms 78 ms [facility] Q-T Interval ms 378 ms [facility] QTC Calculation (Bezet) 459 ms [facility] Calculated P [place] 46 degrees [facility] Calculated R [place] 19 degrees [facility] Calculated T [place] 8 degrees [facility] Interpretation EKG Normal sinus rhythm Moderate voltage criteria for LVH, may be normal variant Nonspecific T wave abnormality Abnormal ECG No previous ECGs available Confirmed by BETH RYDER, CLAU ([id number]) on 03/12/2012 11:05:52 AM [facility] 03/11/2012 8:51 AM ICE GRINDER 03/12/2012 11:05 AM ICE GRINDER Narrative [facility] - 03/12/2012 11:07 AM ICE GRINDER Procedure Note Document, Scanned - 03/12/2012 7:34 AM CST Transcriptions Document, Scanned - 03/12/2012 11:07 AM CST Ashley Montoya MD ECG ORDERABLES [facility] * AMYLASE BLOOD (03/11/2012 8:35 AM ICE GRINDER) Amylase 24 15 - 115 U/L [facility] Blood specimen (specimen) BLOOD SPECIMEN / Unknown 03/11/2012 8:35 AM ICE GRINDER 03/11/2012 8:43 AM ICE GRINDER Narrative [facility] - 03/11/2012 9:05 AM ICE GRINDER Perform for patients with UPPER abd* Ashley Montoya MD LAB - CHEMISTRY EFREN FRANK [facility] [address] [place] [address] * LIPASE BLOOD (03/11/2012 8:35 AM ICE GRINDER) Lipase 77 73 - 393 U/L [facility] Blood specimen (specimen) BLOOD SPECIMEN / Unknown 03/11/2012 8:35 AM ICE GRINDER 03/11/2012 8:43 AM ICE GRINDER Narrative [facility] - 03/11/2012 9:05 AM ICE GRINDER Perform for patients with UPPER abd* Ashley Montoya MD LAB - CHEMISTRY EFREN FRANK Performing Organization Address [facility] Co de Phone Number [facility] [address] [place] [address] * (ABNORMAL) COMPREHENSIVE METABOLIC PANEL (03/11/2012 8:35 AM ICE GRINDER) BUN 8 7.0 - 21.0 mg/dL [facility] Sodium 138 136 - 145 mmol/L [facility] Potassium 3.5 3.5 - 5.1 mmol/L [facility] Chloride 101 98.0 - 107.0 mmol/L [facility] Glucose 270(H) 74 - 106 mg/dL [facility] Creatinine 0.53 0.5 - 1.3 mg/dL [facility] AST 27 5 - 40 U/L [facility] Alkaline Phosphatase 92 38 - 126 U/L [facility] Calcium 9.0 8.5 - 10.1 mg/dL [facility] Bilirubin Total 0.8 0.2 - 1.0 mg/dL [facility] Albumin 3.5 3.4 - 5.0 gm/dL [facility] Protein Total 8.5(H) 6.4 - 8.2 gm/dL [facility] CO2 27 22.0 - 30.0 mmol/L [facility] ALT 40 12 - 78 U/L [facility] eGFR by MDRD 155 mL/min/1.7 3m2 [facility] Anion Gap 10.0 5 - 15 mmol/L [facility] Blood specimen (specimen) BLOOD SPECIMEN / Unknown 03/11/2012 8:35 AM ICE GRINDER 03/11/2012 8:43 AM ICE GRINDER Narrative [facility] - 03/11/2012 9:05 AM ICE GRINDER Perform for patients with UPPER abd* Ashley Montoya MD LAB - CHEMISTRY EFREN FRANK Performing Organization Address [facility] Co de Phone Number [facility] [address] [place] [address] * CBC W AUTO DIFFERENTIAL (03/11/2012 8:35 AM ICE GRINDER) WBC 6.4 4.4 - 10.7 1000/mm3 [facility] RBC 4.44 3.80 - 5.20 10X6 [facility] Hemoglobin 13.6 12.0 - 15.6 gm/dL [facility] Hematocrit 38.3 35.9 - 45.5 % [facility] MCV 86.3 80.7 - 98.3 fl [facility] MCH 30.6 26.7 - 34.0 pg [facility] MCHC 35.5 30.8 - 35.9 gm/dL [facility] RDW 12.4 12.1 - 14.9 % [facility] Platelet Count 260 153 - 416 1000/mm3 [facility] MPV 10.9 9.4 - 12.9 fl [facility] Granulocytes % 56.1 44 - 73 % [facility] Immature Granulocytes % 0.3 0 - 1 % [facility] Lymphocytes % 37.6 20 - 43 % [facility] Monocytes % 5.5 5 - 13 % [facility] Eosinophils % 0.3 0 - 6 % [facility] Basophils % 0.2 0 - 2 % [facility] Granulocytes Absolute 3.58 2.01 - 7.14 [facility] Immature Granulocytes Absolute 0.02 0.00 - 0.06 [facility] Lymphocytes Absolute 2.40 1.07 - 3.94 [facility] Monocytes Absolute 0.35 0.26 - 1.07 [facility] Eosinophils Absolute 0.02 0.00 - 0.47 [facility] Basophils Absolute 0.01 0.00 - 0.08 [facility] Comment Manual Diff Not Indicated [facility] Blood specimen (specimen) BLOOD SPECIMEN / Unknown 03/11/2012 8:35 AM ICE GRINDER 03/11/2012 8:43 AM ICE GRINDER Narrative [facility] - 03/11/2012 8:52 AM ICE GRINDER Perform for patients with UPPER abd* Ashley Montoya MD LAB - HEMATOLOGY ORD ERABLES [facility] [address] [place] [address] documented in this encounter Visit Diagnoses Diagnosis [...] at 0900 $ Given 03/11/2012 9:16 AM ICE GRINDER 2 mg ondansetron (ZOFRAN) injection 4 mg 4 mg, Intravenous, ONCE, 1 dose, On Sun03/11/12 at 0900 $ Given 03/11/2012 9:16 AM ICE GRINDER 4 mg ondansetron (ZOFRAN) injection 4 mg 4 mg, Intravenous, ONCE, 1 dose, On Sun03/11/12 at 1100 $ Given 03/11/2012 10:37 AM ICE GRINDER 4 mg ondansetron (ZOFRAN) injection ADS Med 1 dose, Starting on Sun03/11/12 at 1032, Until Sun03/11/12 at 1037, BIJU ACEVEDO: cabinet override documented in this encounter Active and Recently Administered Medications Times are shown in ICE GRINDER. Scheduled Medication Order 03/09/2012 03/10/2012 03/11/2012 morphine [...] RN) documented in this encounter Care Teams Freight Tallier Relationship Specialty Start Date End Date Jarred Rod MD PCP - General 03/11/12 10/29/23 documented as of this encounter
--- OUTSIDE RECORDS SUMMARY | 2024-03-03 01:15 | XMS_ITS | Encounter Summary ---
Author Organization [facility] Address [address] [place], [place] [address] [address] Care Team Providers Care Nuclear Power Plant Engineer Name Role Phone Jarred Rod MD Primary Care Provider Unav ailable Encounter Details Date Type Department Care Team (Latest Contact Info) Description 03/11/2012 11:10 AM EMPLOYMENT DIRECTOR - 03/11/2012 11:59 PM [facility] Hospital Encounter [facility] Imaging Services - CT Scan [address] [place] [address] Ashley Montoya MD [address] [place] [address] Discharge Disposition: Home or Self [...] CT RENAL STONE STAT 03/11/2012 12:00 PM EMPLOYMENT DIRECTOR Hydronephrosis documented in this encounter Results * CT RENAL STONE (03/11/2012 12:00 PM EMPLOYMENT DIRECTOR) Anatomical Region Laterality Modality Abdomen Computed Tomogra phy 03/11/2012 12:0 5 PM EMPLOYMENT DIRECTOR Impressions 03/11/2012 12:05 PM EMPLOYMENT DIRECTOR The right kidney appears severely hydronephrotic with gross calyceal dilatation. The right ureter is relatively small however an obstruction may be present at the level of the ureterovesical junction. No definite ureteral calculi are seen on the right. A retrograde study would be recommended for further evaluation. Small nonobstructing renal calculi are present bilaterally. This examination was transcribed using the [employer] voice recognition system without human reed polisher. ??In an effort to expedite patient care, this report has not been adjusted for typographical, grammatical, and syntax by a trained medical clerk. Narrative 03/11/2012 12:[address] Abdomen and Pelvis Noncontrast Indication: Abdominal [...] bilaterally. This examination was transcribed using the [employer] voice recognition system without human reed polisher. In an effort to expedite patient care, this report has not been adjusted for typographical, grammatical, and syntax by a trained medical clerk. Ashley Montoya MD CT ORDERABLES documented in this encounter Visit Diagnoses Not on filedocumented in this encounter Care Teams Nuclear Power Plant Engineer Relationship Specialty Start Date End Date Jarred Rod MD PCP - General 03/11/12 10/29/23 documented as of this encounter
--- OUTSIDE RECORDS SUMMARY | 2024-03-03 01:16 | XMS_ITS | Encounter Summary ---
Author Organization [facility] Address [address] [place] [address]. [place] [address] [place] [address] Care Team Providers Care Medicaid Biller Name Role Phone Colton SILVEIRA MD, Abiodun Rushing Primary Care Provider Victoriano Langston MD Unavailable [phone] Reason for Visit * Reason Onset Date Comments Consult 02/19/2024 Encounter Details Date Type Department Care Team (Late st Contact Info) Description 02/19/2024 Telephone [facility] [place] [phone] Jacy Qureshi, RMA Consult Social History Tobacco [...] from your doctor or pharmacy? Often 11/29/2023 [facility] Utilities Answer Date Recorded In [...] 11/29/2023 How often do you attend chur [employer] or anabaptism services? Never 11/29/2023 Active Member [...] Recorded Patient Health Questionnaire-2 Score 1 03/05/2023 [facility] of Occupat ional Health - Occupational Stress [...] any time in the past 12 m [facility], were you homeless or living in [...] for patientto contact our office to schedule. T MGR documented in this encounter Plan of Treatment Upcoming Encounters Date Type Department Care Team (Late st Contact Info) Description 03/14/2024 11:45 AM SHIFT MGR Office Visit [facility] [phone] Marvin Mckeon MD [facility] [address] [place], [place] [id number] 03/20/2024 11:30 AM SHIFT MGR Office Visit [facility] Family Medicine - [place] [phone] Abiodun Segura II, MD [address] [place] [address] documented as of this encounter Goals Goal Patient Goal Type Associated Problems Recent Progress Patient-Stated? Author Family - family caregiver with be involved in care transitions and discharge planning Lifestyle No Natty Cheek, RN documented as of this encounter Visit Diagnoses Not on filedocumented in this encounter Additional Health Concerns Assessment Noted Time PHQ-9 Depression Total Score: 0 03/08/19 22 9:30 AM SHIFT MGR documented as of this encounter Care Teams Medicaid Biller Relationship Specialty Start Date End Date Abiodun Segura II, MD [address] [place] [address] PCP - General FAMILY PRACTICE 03/09/21 [place] [address] [place] [address] PODIATRY/SURGERY 05/05/22 documented as of this encounter
--- OUTSIDE RECORDS SUMMARY | 2024-03-03 01:16 | XMS_ITS | Clinical Summary ---
Author Organization [facility] Address [address] [place] [address]. [place] [address] [place] [address] Care Team Providers Care Cake Stripper Name Role Phone Colton SILVEIRA MD, Yasmin Rushing Primary Care Provider Victoriano Langston MD Unavailable [phone] Allergies Active Allergy Reactions Criticality Noted Date [...] use of insulin ([facility]/HCC [facility]) Use as directed to inject [...] unspecified, unspecified laterality, unspecified retinopathy severity ([facility]) INJECT 65 UNITS SUBCUTANEOUSLY IN THE MORNING [...] use of insulin ([facility]) 1 strip by Other route 2 (two) times daily. Use as instructed 200 strip 3 02/26/19 25 Active Glucose Blood (ACCU-CHEK TAWANNA PLUS) test stripIndications: Type 2 diabetes mellitus with diabetic neuropathic arthropathy, with long-term current use of insulin ([facility]) 1 strip by Other route 2 (two) [...] (12/13/2022): Added automatically from request for surgery [id number] Epigastric abdominal pain 12/13/2022 Overview (12/13/2022): Added automatically from request for surgery [id number] Intractable vomiting 11/10/2022 Abdominal pain 10/13/2022 Intractable abdominal pain 10/11/2022 Acquired absence of other left toe(s) ([facility]CC) 09/20/2022 Atherosclerosis of alutiiq ar teries of extremities with intermittent claudication, bilateral legs 09/20/2022 Necrotic toes ([facility]) 09/04/2022 Soft tissue infection of foot 09/03/2022 Osteomyelitis ([facility]) 01/09/2022 Diabetic foot infection ([facility]) 2021 Chest pain 07/09/2021 Hot flashes due to menopause 07/06/2021 Renal stones 04/15/2021 Chronic bilateral low back pain without sciatica 12/14/2020 Callus of foot 12/14/2020 Renal disorder 09/24/2020 Hypercholesteremia 07/11/2018 Hypertension 07/11/2018 Type 2 diabetes mellitus ([facility]) 07/11 Vision decreased Overview (03/21/2021): blind right eye, poor vision left eye Charcot foot due to diabetes mellitus ([facility] H HS/HCC) Overview (07/06/2021): LEFT FOOT Resolved Problems Problem Noted Date Diagnosed Date Resolved Date Chest pain 08/12/2019 04/15/2021 Overview (03/21/2021): Added automatically from request for surgery [id number] Nephrolithiasis 07/11/2018 04/15/2021 Diabetic foot ulcer ([facility] HHS/HCC) 06/28/2017 03/21/2021 Cellulitis 02/08/2017 12/14/2020 Osteomyelitis ([facility]) 02/04/2017 03/21/2021 Encounters Date Type Department Care Team Description 02/27/[address] [phone] Yasmin Segura II, MD Refill Request 02/19/2024 Telephone [facility], [address] [address] Jacy Qureshi, RMA Consult 02/11/2024 Telephone [facility], [address] [address] Jacy Qureshi, RMA Consult 02/07/2024 10:30 AM AERIAL PHOTOGRAPHER Office Visit [address] [phone] Yasmin Segura II, MD TCM (Patient presents for hospital follow up/sepsis and cholecystitis ) 02/07/2024 Travel 02/01/2024 Scan [facility] [employer] SRVCS Scanned, [facility] Dilated Eye Exam (SCAN) 01/28/2024 Patient Outreach [address] [phone] Tristan Morse, [facility] Medication (Lisinopril and Simvastatin medication adherence. ) 01/24/[address] [phone] Yasmin Segura II, MD TCM 01/20/2024 Scan [facility] INFO SRVCS Scanned, [facility] 01/03/2024 3:16 AM AERIAL PHOTOGRAPHER - 01/03/2024 6:23 AM AERIAL PHOTOGRAPHER Emergency [facility] [place] [address] Enrrique Jara MD Abdominal Pain; Constipation Discharge Disposition: Home or Self Care (Routine Discharge) 01/03/2024 Travel 01/01/2024 Orders Only [address] [phone] Yasmin Segura II, MD 12/27/2023 Scan [facility] INFO SRVCS Scanned, [facility] 12/25/2023 Orders Only [address] [phone] Yasmin Segura II, MD 12/25/[address] [phone] Yasmin Segura II, MD Medication Request 12/19/2023 11:34 AM CDT - 12/19/2023 11:59 PM CDT Hospital Encounter [facility] [place] [address] Hubert Cummings DPM Discharge Disposition: Home or Self Care (Routine Discharge) 12/19/2023 Travel 12/13/2023 10:30 AM CDT Office Visit [address] [phone] Yasmin Segura II, MD TCM (Patient presents for hospital follow up for UTI) 12/13/2023 Travel 12/03/[address] [phone] Yasmin Segura II, MD TCM 11/28/2023 10:33 PM CDT - 12/02/2023 10:41 AM CDT Hospital Encounter [facility] Med/Surg [address] [place] [address] Perrin, CYNTHIA Mejia Ashley Helen, MD Conti, [...] from your doctor or pharmacy? Often 11/29/2023 [employer] Answer Date Recorded In the past 12 months has e [employer], gas, oil, or water [email or web address] threatened to shut off services in your [...] often do you attend chur ch or jain services? Never 11/29/2023 Active Member of Clubs [...] Recorded Patient Health Questionnaire-2 Score 1 03/05/2023 [facility] Occupat ional Health [...] a senior care (including now)? No 03/06/2023 Housing Stability Vital Sign Answer Raymon e Recorded In the last 12 months, was t here a time when you were not able to pay the mortgage or rent on time? No 11/29/2023 In the past 12 months, how m any times have you moved where you were living? 1 11/29/2023 At any time in the past 12 m [facility], were you homeless or living in a senior care (including now)? No 11/29/2023 Comments No Sex and Gender Information Value Date Recorded Sex Assigned at Female 12/17/2021 2:07 AM CDT Legal Sex Female 2:58 PM CDT Gender Identity Female 12/17/2021 2:07 AM CDT Sexual Orientation Straight 12/17/2021 2: 07 AM CDT Last Filed Vital Signs Vital Sign Reading Time Taken Comments Blood Pressure 150/84 02/07/2024 10:55 AM AERIAL PHOTOGRAPHER Pulse 88 02/07/2024 10:35 AM AERIAL PHOTOGRAPHER Temperature 36.3 ??C (97.3 ??F) 02/07/2024 10:[address] Respiratory Rate 18 01/03/2024 3:20 AM AERIAL PHOTOGRAPHER Oxygen Saturation 100% 02/07/2024 10:35 AM AERIAL PHOTOGRAPHER Inhaled Oxygen Concentration - - Weight 84.4 kg (186 lb) 02/07/2024 10:35 AM AERIAL PHOTOGRAPHER Height 167.6 cm (5' 6 ) 01/03/2024 3:20 AM AERIAL PHOTOGRAPHER Body Mass Index 30.02 01/03/2024 3:20 AM AERIAL PHOTOGRAPHER Plan of Treatment Upcoming Encounters Date Type Department Care Team (Late st Contact Info) Description 03/14/2024 11:45 AM AERIAL PHOTOGRAPHER Office Visit [facility] [phone] Marvin Mckeon MD Three [facility] [address] [place], [place] [phone] 03/20/2024 11:30 AM AERIAL PHOTOGRAPHER Office Visit [facility] Family Medicine - [place] [address] [place] [phone] Yasmin Segura II, MD [address] [place] [address] Health Maintenance Due Date Last Done Comments [...] and discharge planning Lifestyle No Natty Cheek, walnut dehydrator operator Procedure Name Priority Date/Time Associated Diagnosis Comments DIABETIC RETINOPATHY EXAM (POSITIVE)(SCAN ORDER) Routine 02/01/2024 CT ABD+PEL WO CON STAT 01/03/2024 4:3 2 AM AERIAL PHOTOGRAPHER COMPREHENSIVE METABOLIC PANEL STAT 01/03/2024 3:51 AM AERIAL PHOTOGRAPHER CBC W/DIFF AUTOMATED STAT 01/03/2024 3:51 AM AERIAL PHOTOGRAPHER USV ART REST W ADRIANA LOW EXT Routine 12/19/2023 1:28 PM CDT Osteoarthritis of feet, bilateral Type 2 diabetes mellitus with other circulatory complications ([facility]) COLLECT.CAPILLARY (FNGR,HEEL,EAR) Routine 12/13/2023 4:06 PM CDT Type 2 diabetes mellitus with diabetic neuropathic arthropathy, with long-term current use of insulin ([facility]) HEMOGLOBIN, GLYCOSYLATED Routine 12/13/2023 Type 2 diabetes mellitus with diabetic neuropathic arthropathy, with long-term current use of insulin ([facility]) CBC W/DIFF AUTOMATED Routine 12/02/2023 5:28 AM CDT BASIC METABOLIC PANEL Routine 12/02/2023 5:28 AM CDT LIPID PANEL Routine 08/16/2023 10:47 AM CDT Hypercholesteremia MG SCREENING W FELTON NOHEMY DIGI Routine 07/02/2021 1:12 PM CDT Encounter for screening mammogram for malignant neoplasm of breast COLONOSCOPY GENERIC (SCAN ORDER) 11/18/2020 from Last 3 Months or Most Recently Relevant to Health Maintenance Results * DIABETIC RETINOPATHY EXAM (POSITIVE) (02/01/2024) us [facility] Scanned SCANNING Final Resu lt [facility] * CT ABD+PEL WO CON (01/03/2024 4:32 AM AERIAL PHOTOGRAPHER) Anatomical Region Laterality Modality Abdomen Computed Tomogra phy 01/03/2024 4:33 AM AERIAL PHOTOGRAPHER Impressions 01/03/2024 4:43 AM AERIAL PHOTOGRAPHER Impression: 1. 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 This appears similar to prior. 2. Redemonstrated bilateral nonobstructing renal stones. 3. Uncomplicated cholelithiasis. Ordered By: ENRRIQUE JARA Interpreted By: Lex Webb MD, 01/03/2024 4:33 AM Narrative 01/03/2024 4:43 AM AERIAL PHOTOGRAPHER [place] [address] Examination: CT abdomen and pelvis without IV [...] Procedure Note Lex Webb MD - 01/03/2024 [facility] [address] [place], [place] [address] Examination: CT abdomen and pelvis without IV [...] (ABNORMAL) COMPREHENSIVE METABOLIC PANEL (01/03/2024 3:51 AM AERIAL PHOTOGRAPHER) GLUCOSE 223(H) 70 - 99 MG/DL 01/03/2024 4:25 AM [facility] BUN 23(H) 7 - 18 MG/DL 01/03/2024 4:25 AM [facility] CREATININE S/P/B 1.24(H) 0.55 - 1.02 MG/DL 01/03/2024 4:25 AM [facility] SODIUM S/P/B 138 136 - 145 MMOL/L 01/03/2024 4:25 AM [facility] POTASSIUM S/P/B 3.6 3.5 - 5.1 MMOL/L 01/03/2024 4:25 AM [facility] CHLORIDE S/P/B 105 97 - 115 MMOL/L 01/03/2024 4:25 AM [facility] CO2 24.8 21 - 32 MMOL/L 01/03/2024 4:25 AM [facility] CALCIUM S/P/B 10.1 8.5 - 10.1 MG/DL 01/03/2024 4:25 AM [facility] BILIRUBIN TOTAL S/P/B 0.4 0.2 - 1.2 MG/DL 01/03/2024 4:25 AM [facility] Comment: THIS ASSAY IS NOT RECOMMENDED FOR PATIENTS UNDERGOING TREATMENT WITH ELTROMBOPAG DUE TO THE POTENTIAL FOR FALSELY ELEVATED RESULTS. TOTAL PROTEIN S/P/B 9.2(H) 6.4 - 8.2 G/DL 01/03/2024 4:25 AM [facility] ALBUMIN S/P/B 3.7 3.4 - 5.0 G/DL 01/03/2024 4:25 AM [facility] AST 16 15 - 37 U/L 01/03/2024 4:25 AM [facility] ALT 20 14 - 55 U/L 01/03/2024 4:25 AM AERIAL PHOTOGRAPHER [facility] ALKALINE PHOSPHATASE S/P/B 159(H) 50 - 136 U/L 01/03/2024 4:25 AM [facility] ANION GAP 8.2 2 - 10 MMOL/L 01/03/2024 4:25 AM [facility] BUN CREATININE RATIO 18.5 6 - 26 01/03/2024 4:25 AM [facility] A/G RATIO 0.7(L) 1.0 - 2.0 RATIO 01/03/2024 4:25 AM [facility] GFR ESTIMATE 52(L) >90 ML/MIN/1.7 3 M2 01/03/2024 4:25 AM [facility] Comment: NOTE: eGFR is not calculated for patients <18 years of age or gender unknown. This is an estimated GFR calculation using the new CKD EPI creatinine equation without race and so does not require a correction factor for race. This estimated GFR should not be used for calculating drug doses. 01/03/2024 3:51 AM AERIAL PHOTOGRAPHER Enrrique Jara MD LABORATORY Final Result [facility] [address] [place] [address], [place] [phone] * CBC W/DIFF AUTOMATED (01/03/2024 3:51 AM AERIAL PHOTOGRAPHER) Only the most recent of2 resultswithin the time period is included. WBC 8.92 4.5 - 11.0 x10'3/uL 01/03/2024 4:02 AM [facility] RBC 4.40 4.20 - 5.40 x10'6/uL 01/03/2024 4:02 AM [facility] HGB 13.1 12.0 - 16.0 G/DL 01/03/2024 4:02 AM [facility] HCT 39.3 38.0 - 48.0 % 01/03/2024 4:02 AM [facility] MCV 89.3 81.0 - 99.0 FL 01/03/2024 4:02 AM [facility] MCH 29.8 27.0 - 31.0 PG 01/03/2024 4:02 AM [facility] MCHC 33.3 32.0 - 36.0 G/DL 01/03/2024 4:02 AM [facility] RDW 13.1 11.5 - 14.5 % 01/03/2024 4:02 AM [facility] PLT 300 130 - 400 x10'3/uL 01/03/2024 4:02 AM [facility] MPV 11.0 9.3 - 12.2 FL 01/03/2024 4:02 AM [facility] DIFFERENTIAL TYPE AUTOMATED DIFFERENTIAL 01/03/2024 4:02 AM [facility] NEUTROPHILS % 69.9 % 01/03/2024 4:02 AM [facility] LYMPHOCYTES % 25.1 % 01/03/2024 4:02 AM [facility] MONOCYTES % 3.7 % 01/03/2024 4:02 AM [facility] EOSINOPHILS 0.4 % 01/03/2024 4:02 AM [facility] BASOPHILS 0.7 % 01/03/2024 4:02 AM [facility] IMMATURE GRANS % 0.2 % 01/03/20 4:02 AM [facility] ABS. NEUTROPHILS 6.23 1.80 - 7.70 x10'3/uL 01/03/2024 4:02 AM AERIAL PHOTOGRAPHER [facility] ABS. LYMPHOCYTES 2.24 1.00 - 4.80 x10'3/uL 01/03/2024 4:02 AM AERIAL PHOTOGRAPHER [facility] ABS. MONOCYTES 0.33 0.24 - 0.86 x10'3/uL 01/03/2024 4:02 AM AERIAL PHOTOGRAPHER [facility] ABS. EOSINOPHILS 0.04 0.04 - 0.36 x10'3/uL 01/03/2024 4:02 AM AERIAL PHOTOGRAPHER [facility] ABS. BASOPHILS 0.06 0.01 - 0.08 x10'3/uL 01/03/2024 4:02 AM AERIAL PHOTOGRAPHER [facility] ABS. IMMATURE GRANULOCYTES 0.02 0.00 - 0.49 x10'3/uL 01/03/2024 4:02 AM AERIAL PHOTOGRAPHER [facility] 01/03/2024 3:51 AM AERIAL PHOTOGRAPHER Enrrique Jara MD LABORATORY Final Result [facility] [address] [place] [address], * USV ART REST W ADRIANA LOW EXT (12/19/2023 1:28 PM CDT) Anatomical Region Laterality Modality Extremity Vascular Ultraso und 12/19/2023 12:4 6 PM CDT Narrative 12/22/2023 7:57 PM CDT ?ARTERIAL DOPPLER - ADRIANA ?BILATERAL LOWER EXTREMITY ? VASCULAR LAB Pat.Name: ??FORD LENA STEPHANIE ?Pat.ID: ?[id number] ? St.Date: ?? 12/19/2023 ? Refer.MD: ??[id number], Zoila gilman Exam Time: 12:46:00 PM ? Study Type:MARINO VS Arterial Doppler Legs NOHEMY ??Age: ??1970,53Y ? Sex: ? F ? Sonogrphr: Reynaldo Blue RVJann ?Pat. Stat.:Outpatient ? History / Clinical:DM, s/p [...] EXTREMITY VASCULAR LAB Pat.Name: LENA YOUNGBLOOD Pat.ID: [id number] .Date: 12/19/2023 Refer.: [id number], Zoila gilman Exam Time: 12:46:00 PM Study Type:MARINO VS Arterial Doppler Legs NOHEMY Age: 2 1970,53Y Sex: F Sonogrphr: Reynaldo Blue RVT Pat. Stat.:Outpatient History / Clinical:DM, [...] PM Hubert Barrera M.D. Hubert Cummings DPM US VASC Final Res ult * A1C (BACK OFFICE) (12/13/2023) Pathologist [facility] HGB A1C 8.2 % MG-[address],[place] 12/13/2023 Yasmin Segura II, MD LABORATORY Final R esult [facility] [address] [place] [address], * (ABNORMAL) BASIC METABOLIC PANEL (12/02/2023 5:28 AM CDT) Pathologist [facility] GLUCOSE 106(H) 70 - 99 MG/DL 12/02/2023 5:58 AM CDT [facility] BUN 15 7 - 18 MG/DL 12/02/2023 5:58 AM CDT [facility] CREATININE S/P/B 1.03(H) 0.55 - 1.02 MG/DL 12/02/2023 5:58 AM CDT [facility] SODIUM S/P/B 140 136 - 145 MMOL/L 12/02/2023 5:58 AM CDT [facility] POTASSIUM S/P/B 3.7 3.5 - 5.1 MMOL/L 12/02/2023 5:58 AM CDT [facility] CHLORIDE S/P/B 107 97 - 115 MMOL/L 12/02/2023 5:58 AM CDT [facility] CO2 28.5 21 - 32 MMOL/L 12/02/2023 5:58 AM CDT [facility] CALCIUM S/P/B 9.4 8.5 - 10.1 MG/DL 12/02/2023 5:58 AM CDT [facility] ANION GAP 4.5 2 - 10 MMOL/L 12/02/2023 5:58 AM CDT [facility] BUN CREATININE RATIO 14.6 6 - 26 12/02/2023 5:58 AM CDT [facility] GFR ESTIMATE 65(L) >90 ML/MIN/1.7 3 M2 12/02/2023 5:58 AM CDT [facility] Comment: NOTE: eGFR is not calculated for patients <18 years of age or gender unknown. This is an estimated GFR calculation using the new CKD EPI creatinine equation without race and so does not require a correction factor for race. This estimated GFR should not be used for calculating drug doses. 12/02/2023 5:28 AM CDT Reynaldo Alexis PA-C LABORATORY Final Result [facility] [address] [place] [address], [place] [phone] * (ABNORMAL) LIPID PANEL (08/16/2023 10:47 AM CDT) CHOLESTEROL 224(H) <200 MG/DL 08/16/2023 11:58 AM CDT [facility] TRIGLYCERIDES 321(H) <150 MG/DL 08/16/2023 11:58 AM CDT [facility] HDL 48 >40.0 MG/DL 08/16/2023 11:58 AM CDT [facility] LDL (CALCULATED) 112(H) <100 MG/DL 08/16/2023 11:58 AM CDT [facility] NON HDL CHOLESTEROL 176(H) <130 MG/DL 08/16/2023 11:58 AM T [facility] CHOL/HDL RATIO 4.7(H) 0.0 - 4.5 08/16/2023 11:58 AM T [facility] VLDL CALCULATION 64(H) 5 - 55 MG/DL 08/16/2023 11:58 AM T [facility] LIPID INTERPRETATION 08/16/2023 11:58 AM T [facility] Comment: NIH CONCENSUS REPORT [...] >=160 ?>=130 08/16/2023 10:4 7 AM CDT Yasmin Segura II, MD LABORATORY Final R esult [facility] [address] [place] [address], * MG SCREENING W FELTON NOHEMY DIGI [...] 5:44 PM 09/09/2022 1:55 PM Care Teams Cake Stripper Relationship Specialty Start Date End Date Yasmin Segura II, MD [address] [place] [address] PCP - General FAMILY PRACTICE 03/09/21 [place] [address] [place] [address] PODIATRY/SURGERY 05/05/22
--- OUTSIDE RECORDS SUMMARY | 2024-03-03 01:16 | XMS_ITS | Encounter Summary ---
Author Organization [facility] Address [address] [place] [address]. [place], [place] [address] [place] [address] Care Team Providers Care Tool Procurement Coordinator Name Role Phone Colton SILVEIRA MD, Abiodun Rushing Primary Care Provider Victoriano Langston MD Unavailable Reason for Visit * Reason Comments Dilated [...] your doctor or pharmacy? Often 11/29/2023 [facility] Utilities Answer Date Recorded In [...] 11/29/2023 How often do you attend chur Vakast or yarsani services? Never 11/29/2023 Active Member of Clubs [...] Health Questionnaire-2 Score 1 03/05/2023 [facility] - Occupational Stress Questionnaire Answer Date [...] time in the past 12 m [facility], were you homeless or living in [...] st Contact Info) Description 03/14/2024 11:45 AM DENTAL TECHNICIAN INSTRUCTOR Office Visit [facility] [phone] Marvin Mckeon MD [facility] [address] [place], [place] [phone] 03/20/2024 11:30 AM DENTAL TECHNICIAN INSTRUCTOR Office Visit [facility] Family Medicine - [place] [address] [place] [phone] Abiodun Segura II, MD [address] [place], [place] [phone] documented as of this encounter Goals Goal [...] Med Group Scanned SCANNING Final Resu lt [facility] documented in this encounter Visit Diagnoses Not on filedocumented in this encounter Additional Health Concerns Assessment Noted Time PHQ-9 Depression Total Score: 0 03/08/19 9:30 AM DENTAL TECHNICIAN INSTRUCTOR documented as of this encounter Care Teams Tool Procurement Coordinator Relationship Specialty Start Date End Date Abiodun Segura II, MD [address] [place] [address] PCP - General FAMILY PRACTICE 03/09/21 [place] [address] [place] [address] PODIATRY/SURGERY 05/05/22 documented as of this encounter
--- OUTSIDE RECORDS SUMMARY | 2024-03-03 01:16 | XMS_ITS | Encounter Summary ---
Author Organization [facility] Address [address] [place] [address]. [place] [address] [place] [address] Care Team Providers Care Adult High School Instructor Name Role Phone Colton SILVEIRA MD, Abiodun Rushing Primary Care Provider Victoriano Langston MD Unavailable [phone] Reason for Visit * Reason Onset Date Comments Consult 02/11/2024 Encounter Details Date Type Department Care Team (Late st Contact Info) Description 02/11/2024 Telephone [place] [phone] Jacy Qureshi, RMA Consult Social History Tobacco [...] from your doctor or pharmacy? Often 11/29/2023 [facility] Utilities [...] 11/29/2023 How often do you attend chur ScoreFeeder or anglican services? Never 11/29/2023 Active Member of Clubs [...] Recorded Patient Health Questionnaire-2 Score 1 03/05/2023 [facility] of Occupat ional Health - Occupational Stress [...] a skilled nursing (including now)? No 03/06/2023 Housing Stability Vital [...] time in the past 12 m [facility], were you homeless or living in a skilled nursing (including now)? No 11/29/2023 Comments No Sex [...] to schedule cardiology consult per Dr Segura FIC ENGINEER documented in this encounter Plan of Treatment Upcoming Encounters Date Type Department Care Team (Late st Contact Info) Description 03/14/2024 11:45 AM TRAFFIC ENGINEER Office Visit [facility] [phone] Marvin Mckeon MD [facility] [address] [place] [address] 03/20/2024 11:30 AM TRAFFIC ENGINEER Office Visit [facility] Family Medicine - [place] [phone] Abiodun Segura II, MD [address] [place] [address] documented as of this encounter Goals Goal Patient Goal Type Associated Problems Recent Progress Patient-Stated? Author Family - family caregiver with be involved in care transitions and discharge planning Lifestyle No Natty Cheek, RN documented as of this encounter Visit Diagnoses Not on filedocumented in this encounter Additional Health Concerns Assessment Noted Time PHQ-9 Depression Total Score: 0 03/08/19 22 9:30 AM TRAFFIC ENGINEER documented as of this encounter Care Teams Adult High School Instructor Relationship Specialty Start Date End Date Abiodun Segura II, MD [address] [place] [address] PCP - General FAMILY PRACTICE 03/09/21 [place] [address] [place] [address] PODIATRY/SURGERY 05/05/22 documented as of this encounter
--- OUTSIDE RECORDS SUMMARY | 2024-03-03 01:16 | XMS_ITS | Encounter Summary ---
Author Organization [facility] Address [address] [place] [address]. [place] [address] [place] [address] Care Team Providers Care Wire Cutter Name Role Phone Colton SILVEIRA MD, Abiodun Rushing Primary Care Provider Victoriano Langston MD Unavailable [phone] Encounter Details Date Type Department Care Team [...] from your doctor or pharmacy? Often 11/29/2023 [facility] Utilities Answer Date Recorded In the past 12 months has e [employer], [employer], or water [employer] threatened to shut off services in your [...] often do you attend chur ch or confucianism services? Never 11/29/2023 Active Member of Club[employer] [...] Recorded Patient Health Questionnaire-2 Score 1 03/05/2023 [facility] - [...] time in the past 12 m [facility], were you homeless or living in [...] st Contact Info) Description 03/14/2024 11:45 AM PICK OUT HAND Office Visit [facility] [phone] Marvin Mckeon MD Three [facility] [place], [place] [phone] 03/20/2024 11:30 AM PICK OUT HAND Office Visit [facility] Family Medicine - [address] [phone] Abiodun Segura II, MD [address] [place] [phone] documented as of this encounter Goals Goal Patient Goal Type Associated Problems Recent Progress Patient-Stated? Author Family - family caregiver with be involved in care transitions and discharge planning Lifestyle Natty Angeles, RN documented as of this encounter Visit Diagnoses Not on filedocumented in this encounter Additional Health Concerns Assessment Noted Time PHQ-9 Depression Total Score: 0 03/08/19 9:30 AM PICK OUT HAND documented as of this encounter Care Teams Wire Cutter Relationship Specialty Start Date End Date Abiodun Segura II, MD [address] [place] [address] PCP - General FAMILY PRACTICE 03/09/21 [place] [address] [place] [address] PODIATRY/SURGERY 05/05/22 documented as of this encounter
--- OUTSIDE RECORDS SUMMARY | 2024-03-03 01:16 | XMS_ITS | Encounter Summary ---
Author Organization [facility] Address [address] [place] [address]. [place], [place] [address] [place] [address] Care Team Providers Care Csw Name Role Phone Colton SILVEIRA MD, Yasmin Rushing Primary Care Provider Victoriano Langston MD Unavailable [phone] Reason for Referral * Consultation (Urgent) - New Request Specialty Diagnoses / Procedures Referred By Contact Referred To Contact CARDIOLOGY / Cardiology Diagnoses Orthostasis Procedures OFFICE/OUTPATIENT NEW LOW MDM 30-44 MINUTES OFFICE/OUTPT VISIT,NEW,LEVL IV OFFICE/OUTPT VISIT,NEW,LEVL V OFFICE/OUTPT VISIT,EST,LEVL III OFFICE/OUTPT VISIT,EST,LEVL IV OFFICE/OUTPT VISIT,EST,LEVL V Yasmin Valenzuela II, MD [address] [place] [address] Phone: tel: fax: Marvin Mckeon MD [address] [place] [address] Phone: tel: fax: Referral ID Status Reason Start Date Expiration Date Visits Requested Visits Authorized [id number] New Request Specialty Services 4 03/10/2025 1 1 Scheduling Instructions 53 yo female with multiple cardiac risk factors. Now with severe orthostatic blood pressures and difficult to control hyper tension. Please evaluate and treat. Thanks. [employer] Reason for Visit * Reason Comments TCM Patient presents for hospital follow up/sepsis and cholecystitis Encounter Details Date Type Department Care Team (Late st Contact Info) Description 02/07/2024 10:30 AM [employer] Office Visit [facility] Family [facility] [address] [place] [phone] Yasmin Valenzuela II, MD [address] [place], [place] [phone] TCM (Patient presents for hospital follow up/sepsis [...] from your doctor or pharmacy? Often 11/29/2023 [facility] Utilities Answer Date Recorded In the past 12 months has [facility] [employer], gas, oil, or water [employer] threatened to shut off services in your [...] Recorded Patient Health Questionnaire-2 Score 1 03/05/2023 [facility] [...] slept in a long-term (including now)? No 03/06/2023 Housing Stability Vital [...] in the past 12 m [facility], were you homeless or living in a long-term (including now)? No 11/29/2023 Comments No Sex and Gender Information Value Date Recorded Sex Assigned at Female 12/17/2021 2:07 AM CDT Legal Sex Female 2:58 PM CDT Gender Identity Female 12/17/2021 2:07 AM CDT Sexual Orientation Straight 12/17/2021 2: 07 AM CDT documented as of this encounter Last Filed Vital Signs Vital Sign Reading Time Taken Comments Blood Pressure 150/84 02/07/2024 10:55 AM [employer] Pulse 88 02/07/2024 10:35 AM [employer] Temperature 36.3 ??C (97.3 ??F) 02/07/2024 10:[address] Respiratory Rate - - Oxygen Saturation 100% 02/07/2024 10:35 AM [employer] Inhaled Oxygen Concentration - - Weight 84.4 kg (186 lb) 02/07/2024 10:35 AM [employer] Height - - Body Mass Index 30.02 01/03/2024 3:20 AM [employer] documented in this encounter Functional Status * [...] from the original note were not included. [facility] FAMILY [address] [address] HOSPITAL FOLLOW UP NOTE Encounter Date: 02/07/2024 [...] for acute cholecystitis. Patient underwent cholecystectomy [facility] and subsequently has recovered well. Patient [...] Diagnosis Hypercholesteremia Hypertension Type 2 diabetes mellitus ([facility]) Renal disorder Chronic bilateral low back pain without sciatica Callus of foot Vision decreased Renal stones Charcot foot due to diabetes mellitus ([facility]) Hot flashes due to menopause Chest pain Diabetic foot infection ([facility]) Osteomyelitis ([facility]) Soft tissue infection of foot Necrotic toes ([facility]) Acquired absence of other left toe(s) ([facility]) Atherosclerosis of lower elwha arteries of extremities with intermittent claudication, bilateral legs ([facility]) Intractable abdominal pain Abdominal pain Intractable vomiting Peptic ulcer Epigastric abdominal pain UTI (urinary tract infection) Class 1 obesity due to excess calories with serious comorbidity and body mass index (BMI) of 32.0 to 32.9 in adult Past Medical History: Diagnosis Date Arthritis Charcot foot due to diabetes mellitus ([facility]) LEFT FOOT Constipation COVID-19 Diabetes mellitus ([facility]) Diabetic neuropathy ([facility]) Gastric ulcer High cholesterol Hypertension Kidney stone [...] min Stress: No Stress Concern Present (11/29/2023) [facility] - Occupational Stress Questionnaire Feeling of Stress : Not at all Social Connections: Moderately Isolated (11/29/2023) Social Connection and Isolation Panel [NHANES] Frequency of Communication with Friends and Family: More than three times a week Frequency of Social Gatherings with Friends and Family: More than three times a week Attends Restoration Services: Never Active Member of Clubs or [...] ML/MIN/1.[address] ABD+PEL WO CON Narrative [facility] [address] [place], [place] [address] Examination: CT abdomen and pelvis without IV [...] with long- term current use of insulin ([facility]) semaglutide (OZEMPIC) 2 MG/3ML injection (PEN) 5. Hypercholesteremia 6. Orthostasis Ambulatory referral to Cardiology, Adult ([facility]) 7. Slow transit constipation Senna (SENOKOT) 8.6 [...] with long- term current use of insulin ([facility]) Patient's hemoglobin A1c was improving and semaglutide [...] issue. - Ambulatory referral to Cardiology, Adult ([facility]) 7. Slow transit constipation Patient continues to [...] the day of the encounter. This includes buwa-xy-wucf and oqw-dumu-ht-face time I provided on the day of the encounter & excludes time spent performing separately reportable services. Medications Discontinued During This Encounter Medication Reason semaglutide (OZEMPIC) 1 mg/dose injection (PEN) Dose adjustment YASMIN VALENZUELA MD 02/07/2024 Portions of this note were dictated using [employer] speech recognition software. Occasional wrong wordor sound-alike substitutions may have occurred due to the inherent limitations of voice recognition software. Please read the chart carefully and recognize, using context, where the substitutions may have occurred. [employer] documented in this encounter Plan of Treatment Upcoming Encounters Date Type Department Care Team (Late st Contact Info) Description 03/14/2024 11:45 AM [employer] Office Visit [facility] [phone] Marvin Mckeon MD Three [facility] [address] [place] [address] 03/20/2024 11:30 AM [employer] Office Visit [facility] Family Medicine - [place] [address] [place] [phone] Yasmin Valenzuela II, MD [address] [place] [address] Scheduled Referrals Name Type Priority Associated Diagnoses Orde r Schedule Ambulatory referral to Cardiology, Adult ([facility]) Referral Routine Orthostasis Ordered: 02/07/2024 documented as [...] arthropathy, with long-term current use of insulin ([facility]) Hypercholesteremia Pure hypercholesterolemia Orthostasis Orthostatic hypotension Slow transit constipation documented in this encounter Additional Health Concerns Assessment Noted Time PHQ-9 Depression Total Score: 0 03/08/19 22 9:30 AM [employer] documented as of this encounter Care Teams Csw Relationship Specialty Start Date End Date Yasmin Valenzuela II, MD [address] [place] [address] PCP - General FAMILY PRACTICE 03/09/21 [place] [address] [place] [address] PODIATRY/SURGERY 05/05/22 documented as of this encounter
--- OUTSIDE RECORDS SUMMARY | 2024-03-03 01:17 | XMS_ITS | Encounter Summary ---
Author Organization [facility] Address [address] [place] [address]. [place] [address] [place] [address] Care Team Providers Care Medicare Contact Specialist Name Role Phone Colton SILVEIRA MD, Yasmin Rushing Primary Care Provider Victoriano Langston MD Unavailable [phone] Reason for Referral * Imaging (Emergency) - New Request Specialty Diagnoses / Procedures Referred By Contxavier t Referred To Contact RADIOLOGY Procedures CT ABD+PEL WO CON Enrrique Jara MD 1 [place] [address] Phone: tel: fax: Referral ID Status Reason Start Date Expiration Date V isits Requested Visits Authorized [id number] New Request 01/03/2024 01/02/2025 1 1 T DAYCARE COORDINATOR Reason for Visit * Reason Comments Abdominal Pain Constipation Encounter Details Date Type Department Care Team (Late st Contact Info) Description 01/03/2024 3:16 AM ADULT DAYCARE COORDINATOR - 01/03/2024 6:23 AM ADULT DAYCARE COORDINATOR Emergency [facility] [place] [address] Enrrique Jara MD 1 [place] [address] Abdominal Pain; Constipation Discharge Disposition: [...] doctor or pharmacy? Often 11/29/2023 [facility] Utilities Answer Date Recorded In the past 12 months has e [employer], gas, oil, or water [employer] threatened to shut off services in your [...] often do you attend chur ch or anglican services? Never 11/29/2023 Active Member [...] Recorded Patient Health Questionnaire-2 Score 1 03/05/2023 [facility] Occupat ional [...] time in the past 12 m [facility], were you homeless or living [...] Comments Blood Pressure 167/85 01/03/2024 4:16 AM ADULT DAYCARE COORDINATOR Pulse 99 01/03/2024 4:16 AM ADULT DAYCARE COORDINATOR Temperature 36.5 ??C (97.7 ??F) 01/03/2024 3:20 AM CS T Respiratory Rate 18 01/03/2024 3:20 AM ADULT DAYCARE COORDINATOR Oxygen Saturation 100% 01/03/2024 4:16 AM ADULT DAYCARE COORDINATOR Inhaled Oxygen Concentration - - Weight 86.1 kg (189 lb 13.1 oz) 01/03/2024 3:20 AM ADULT DAYCARE COORDINATOR Height 167.6 cm (5' 6 ) 01/03/2024 3:20 AM ADULT DAYCARE COORDINATOR Body Mass Index 30.64 01/03/2024 3:20 AM ADULT DAYCARE COORDINATOR documented in this encounter Functional Status * [...] Enrrique Jara MD - 01/03/2024 4:50 AM ADULT DAYCARE COORDINATOR Constipation Remedy or [employer] Nurses in [...] of the ways to help combat stres T DAYCARE COORDINATOR * Attachments The following attachments cannot be sent through Care Everywhere. * Constipation Discharge Instructions, Adult (Rwandan) documented in this encounter Medications at [...] arthropathy, with long-term current use of insulin ([facility]) Use as directed to inject insulin [...] arthropathy, with long-term current use of insulin ([facility]CC HHS/HCC) 1 strip by Other route 2 (two) times daily. Use as instructed 200 strip 3 3 02/26/19 25 HUMALOG MIX 75/25 (75-25) 100 UNIT/ML SuspensionIndicatio ns:Type 2 diabetes mellitus with retinopathy, with long-term current use of insulin, macular edema presence unspecified, unspecified laterality, unspecified retinopathy severity ([facility] HHS/HCC) INJECT 65 UNITS SUBCUTANEOUSLY IN THE [...] verbalized understanding. Pt wheeled out by staff. T DAYCARE COORDINATOR * Enrrique Jara MD - 01/03/2024 3:30 AM CST [place], [place] EMERGENCY DEPARTMENT ENCOUNTER Chief Complaint Chief Complaint Patient presents with Abdominal Pain Constipation History of Present Illness Provider at Bedside None Lena Jennifer Mcneal is a 63-egg[age]-z[age]v-year-old female with a PMH of arthritis, constipation, [...] Arthritis Charcot foot due to diabetes mellitus ([facility] HHS/HCC) LEFT FOOT Constipation COVID-19 Diabetes mellitus ([facility] HHS/HCC) Diabetic neuropathy ([facility] HHS/HCC) Gastric ulcer High cholesterol Hypertension Kidney [...] ABD+PEL WO CON Final Result by User, [id number] (01/02 3265) [place] [address] Examination: CT abdomen and pelvis without IV [...] the physician. Enrrique Jara MD 01/03/24 0450 T DAYCARE COORDINATOR * Ashanti Bright RN - 01/03/2024 3:24 AM CST Patient presents via EMS with abdominal pain that she is rating at a 9/10. Patient states that she has been constipated for 5 days. Patient states that she has been taking laxatives and tried an enema on herself tonight with no success. T DAYCARE COORDINATOR * Ashanti Bright RN - 01/03/2024 3:16 AM CST Bed: 15 Expected date: Expected time: Means of arrival: Comments: 1244 T DAYCARE COORDINATOR documented in this encounter Plan of Treatment Upcoming Encounters Date Type Department Care Team (Late st Contact Info) Description 03/14/2024 11:45 AM ADULT DAYCARE COORDINATOR Office Visit [facility] [phone] Marvin Mckeon MD Three [facility] [address] [place] [address] 03/20/2024 11:30 AM ADULT DAYCARE COORDINATOR Office Visit [facility] Family Medicine - [place] [address] [place] [phone] Yasmin Segura II, MD [address] [place], [place] [phone] documented as of this encounter Goals Goal Patient Goal Type Associated Problems Recent Progress Patient-Stated? Author Family - family caregiver with be involved in care transitions and discharge planning Lifestyle No Natty Cheek RN documented as of this encounter Procedures Procedure Name Priority Date/Time Associated Diagnosis Comments CT ABD+PEL WO CON STAT 01/03/2024 4:3 2 AM ADULT DAYCARE COORDINATOR COMPREHENSIVE METABOLIC PANEL STAT 01/03/2024 3:51 AM ADULT DAYCARE COORDINATOR CBC W/DIFF AUTOMATED STAT 01/03/2024 3:51 AM ADULT DAYCARE COORDINATOR documented in this encounter Results * CT ABD+PEL WO CON (01/03/2024 4:32 AM ADULT DAYCARE COORDINATOR) Anatomical Region Laterality Modality Abdomen Computed Tomogra phy 01/03/2024 4:33 AM ADULT DAYCARE COORDINATOR Impressions 01/03/2024 4:43 AM ADULT DAYCARE COORDINATOR Impression: 1. 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 This appears similar to prior. 2. Redemonstrated bilateral nonobstructing renal stones. 3. Uncomplicated cholelithiasis. Ordered By: ENRRIQUE JARA Interpreted By: Lex Webb MD, 01/03/2024 4:33 AM Narrative 01/03/2024 4:43 AM ADULT DAYCARE COORDINATOR [address] [address] Examination: CT abdomen and pelvis without IV [...] Procedure Note Lex Webb MD - 01/03/[address], [place] [address] Examination: CT abdomen and pelvis without IV [...] (ABNORMAL) COMPREHENSIVE METABOLIC PANEL (01/03/2024 3:51 AM ADULT DAYCARE COORDINATOR) GLUCOSE 223(H) 70 - 99 MG/DL 01/03/2024 4:25 AM ADULT DAYCARE COORDINATOR [facility] BUN 23(H) 7 - 18 MG/DL 01/03/2024 4:25 AM ADULT DAYCARE COORDINATOR [facility] CREATININE S/P/B 1.24(H) 0.55 - 1.02 MG/DL 01/03/2024 4:[address] [facility] SODIUM S/P/B 138 136 - 145 MMOL/L 01/03/2024 4:[address] [facility] POTASSIUM S/P/B 3.6 3.5 - 5.1 MMOL/L 01/03/2024 4:[address] [facility] CHLORIDE S/P/B 105 97 - 115 MMOL/L 01/03/2024 4:[address] [facility] CO2 24.8 21 - 32 MMOL/L 01/03/2024 4:[address] [facility] CALCIUM S/P/B 10.1 8.5 - 10.1 MG/DL 01/03/2024 4:[address] [facility] BILIRUBIN TOTAL S/P/B 0.4 0.2 - 1.2 MG/DL 01/03/2024 4:[address] [facility] Comment: THIS ASSAY IS NOT RECOMMENDED FOR PATIENTS UNDERGOING TREATMENT WITH ELTROMBOPAG DUE TO THE POTENTIAL FOR FALSELY ELEVATED RESULTS. TOTAL PROTEIN S/P/B 9.2(H) 6.4 - 8.2 G/DL 01/03/2024 4:[address] [facility] ALBUMIN S/P/B 3.7 3.4 - 5.0 G/DL 01/03/2024 4:[address] [facility] AST 16 15 - 37 U/L 01/03/2024 4:[address] [facility] ALT 20 14 - 55 U/L 01/03/2024 4:[address] [facility] ALKALINE PHOSPHATASE S/P/B 159(H) 50 - 136 U/L 01/03/2024 4:[address] [facility] ANION GAP 8.2 2 - 10 MMOL/L 01/03/2024 4:[address] [facility] BUN CREATININE RATIO 18.5 6 - 26 01/03/2024 4:[address] [facility] A/G RATIO 0.7(L) 1.0 - 2.0 RATIO 01/03/2024 4:[address] [facility] GFR ESTIMATE 52(L) >90 ML/MIN/1.7 3 M2 01/03/2024 4:[address] [facility] Comment: NOTE: eGFR is not calculated for patients <18 years of age or gender unknown. This is an estimated GFR calculation using the new CKD EPI creatinine equation without race and so does not require a correction factor for race. This estimated GFR should not be used for calculating drug doses. 01/03/2024 3:51 AM ADULT DAYCARE COORDINATOR Enrrique Jara MD LABORATORY Final Result [facility] [address] [place] [address], * CBC W/DIFF AUTOMATED (01/03/2024 3:51 AM [facility]) WBC 8.92 4.5 - 11.0 x10'3/uL 01/03/2024 4:[address] [facility] RBC 4.40 4.20 - 5.40 x10'6/uL 01/03/2024 4:[address] [facility] HGB 13.1 12.0 - 16.0 G/DL 01/03/2024 4:[address] [facility] HCT 39.3 38.0 - 48.0 % 01/03/2024 4:[address] [facility] MCV 89.3 81.0 - 99.0 FL 01/03/2024 4:[address] [facility] MCH 29.8 27.0 - 31.0 PG 01/03/2024 4:[address] [facility] MCHC 33.3 32.0 - 36.0 G/DL 01/03/2024 4:[address] [facility] RDW 13.1 11.5 - 14.5 % 01/03/2024 4:[address] [facility] PLT 300 130 - 400 x10'3/uL 01/03/2024 4:[address] [facility] MPV 11.0 9.3 - 12.2 FL 01/03/2024 4:[address] [facility] DIFFERENTIAL TYPE AUTOMATED DIFFERENTIAL 01/03/2024 4:[address] [facility] NEUTROPHILS % 69.9 % 01/03/2024 4:[address] [facility] LYMPHOCYTES % 25.1 % 01/03/2024 4:[address] [facility] MONOCYTES % 3.7 % 01/03/2024 4:[address] [facility] EOSINOPHILS 0.4 % 01/03/2024 4:[address] [facility] BASOPHILS 0.7 % 01/03/2024 4:[address] [facility] IMMATURE GRANS % 0.2 % 01/03/20 4:[address] [facility] ABS. NEUTROPHILS 6.23 1.80 - 7.70 x10'3/uL 01/03/2024 4:[address] [facility] ABS. LYMPHOCYTES 2.24 1.00 - 4.80 x10'3/uL 01/03/2024 4:[address] [facility] ABS. MONOCYTES 0.33 0.24 - 0.86 x10'3/uL 01/03/2024 4:02 AM ADULT DAYCARE COORDINATOR [facility] ABS. EOSINOPHILS 0.04 0.04 - 0.36 x10'3/uL 01/03/2024 4:02 AM ADULT DAYCARE COORDINATOR [facility] ABS. BASOPHILS 0.06 0.01 - 0.08 x10'3/uL 01/03/2024 4:02 AM ADULT DAYCARE COORDINATOR [facility] ABS. IMMATURE GRANULOCYTES 0.02 0.00 - 0.49 x10'3/uL 01/03/2024 4:02 AM ADULT DAYCARE COORDINATOR [facility] 01/03/2024 3:51 AM ADULT DAYCARE COORDINATOR Enrrique Jara MD LABORATORY Final Result [facility] [address] [place] [address], documented in this encounter Visit Diagnoses Diagnosis Constipation- Primary Unspecified constipation documented in this encounter Administered Medications Inactive Administered Medications - up to 3 most recent administrations Medication Order MAR Action Action Date Dose Rate Site morphine injection 4 mg 4 mg, Intravenous, Once, 1 dose, On Viky 01/03/24 at 0415 Given 01/03/2024 4:14 AM ADULT DAYCARE COORDINATOR 4 mg ondansetron (ZOFRAN) injection 4 mg 4 mg, Intravenous, Once, 1 dose, On Viky 01/03/24 at 0415, IV push over 2-5 minutes. Given 01/03/2024 4:15 AM ADULT DAYCARE COORDINATOR 4 mg documented in this encounter Active and Recently Administered Medications Times are shown in ADULT DAYCARE COORDINATOR. Scheduled Medication Order 01/01/2024 01/02/2024 01/03/2024 morphine [...] Total Score: 0 03/08/19 22 9:30 AM ADULT DAYCARE COORDINATOR documented as of this encounter Care Teams Medicare Contact Specialist Relationship Specialty Start Date End Date Yasmin Segura II, MD [address] [place] [address] PCP - General FAMILY PRACTICE 03/09/21 [place] [address] [place] [address] PODIATRY/SURGERY 05/05/22 documented as of this encounter
--- OUTSIDE RECORDS SUMMARY | 2024-03-03 01:17 | XMS_ITS | Encounter Summary ---
Author Organization [facility] Address [address] [place] [address]. [place] [address] [place] [address] Care Team Providers Care Tester Compressed Gases Name Role Phone Colton SILVEIRA MD, Abiodun Rushing Primary Care Provider Victoriano Langston MD Unavailable [phone] Encounter Details Date Type Department Care Team [...] from your doctor or pharmacy? Often 11/29/2023 [facility] Utilities Answer Date Recorded In the past 12 months has e [employer], [employer], or water [employer] threatened to shut off services in your [...] often do you attend chur ch or judaism services? Never 11/29/2023 Active Member of Clubs [...] any time in the past 12 m [facility], were you homeless or [...] Assessment Author Status Yes 03/06/2023 3:39 PM FULL TIME PARAMEDIC Teresa Amaya RN Active * Do you have difficulty dressing or bathing? Answer Date of Assessment Author Status Yes 03/06/2023 3:39 PM FULL TIME PARAMEDIC Teresa Amaya RN Active * Because of a physical, mental, or emotional condition, do you have difficulty doing errands alone such as visiting a doctor's office or shopping? Answer Date of Assessment Author Status Yes 03/06/2023 3:39 PM FULL TIME PARAMEDIC Teresa Amaya RN Active documented as of this encounter Mental Status * Because of a physical, mental, or emotional condition, do you have serious difficulty concentrating, remembering, or making decisions? Answer Entry Date Author Status No 03/06/2023 3:39 PM FULL TIME PARAMEDIC Teresa Amaya RN Active documented in this encounter Plan of Treatment Upcoming Encounters Date Type Department Care Team (Late st Contact Info) Description 03/14/2024 11:45 AM FULL TIME PARAMEDIC Office Visit [facility] [address] Marvin Mckeon MD Three [facility] [address] [place] [address] 03/20/2024 11:30 AM FULL TIME PARAMEDIC Office Visit [facility] Family Medicine - [place] 100 [place] [phone] Abiodun Segura II, MD 100 [place] [address] documented as of this encounter Goals Goal Patient Goal Type Associated Problems Recent Progress Patient-Stated? Author Family - family caregiver with be involved in care transitions and discharge planning Lifestyle Natty Angeles RN documented as of this encounter Visit Diagnoses Not on filedocumented in this encounter Additional Health Concerns Assessment Noted Time PHQ-9 Depression Total Score: 0 03/08/19 22 9:30 AM FULL TIME PARAMEDIC documented as of this encounter Care Teams Tester Compressed Gases Relationship Specialty Start Date End Date Abiodun Segura II, MD 100 [place] [address] PCP - General FAMILY PRACTICE 03/09/21 [place] [address] [place] [address] PODIATRY/SURGERY 05/05/22 documented as of this encounter
--- OUTSIDE RECORDS SUMMARY | 2024-03-03 01:17 | XMS_ITS | Encounter Summary ---
Author Organization [facility] Address [address] [place] [address]. [place] [address] [place] [address] Care Team Providers Care Director Of Rehabilitative Services Name Role Phone Colton SILVEIRA MD, Abiodun Rushing Primary Care Provider Victoriano Langston MD Unavailable [phone] Encounter Details Date Type Department Care Team (Late st Contact Info) Description 01/01/2024 Orders Only [facility] Family Medicine - [place] 100 [place] [address] Abiodun Segura II, MD 100 [place] [address] Social History Tobacco Use Types [...] from your doctor or pharmacy? Often 11/29/2023 [facility] Utilities Answer Date Recorded In [...] 11/29/2023 How often do you attend chur [employer] or congregation services? Never 11/29/2023 Active Member of Clubs [...] Recorded Patient Health Questionnaire-2 Score 1 03/05/2023 [facility] of Occupat ional Health - [...] any time in the past 12 m [facility], were you homeless or living [...] Contact Info) Description 03/14/2024 11:45 AM WASTEWATER SUPERINTENDENT Office Visit [facility] [address] Marvin Mckeon MD [facility] [address] [place] [address] 03/20/2024 11:30 AM WASTEWATER SUPERINTENDENT Office Visit [facility] Family Medicine - [place] 100 [place] [phone] Abiodun Segura II, MD 100 [place] [address] documented as of this encounter Goals Goal Patient Goal Type Associated Problems Recent Progress Patient-Stated? Author Family - family caregiver with be involved in care transitions and discharge planning Lifestyle No Natty Cheek, RN documented as of this encounter Visit Diagnoses Diagnosis Other chronic osteomyelitis of foot, unspecified laterality ([facility] Primary documented in this encounter Additional Health Concerns Assessment Noted Time PHQ-9 Depression Total Score: 0 03/08/19 22 9:30 AM WASTEWATER SUPERINTENDENT documented as of this encounter Care Teams Director Of Rehabilitative Services Relationship Specialty Start Date End Date Abiodun Segura II, MD 100 [place] [address] PCP - General FAMILY PRACTICE 03/09/21 [place] [address] [place] [address] PODIATRY/SURGERY 05/05/22 documented as of this encounter
--- OUTSIDE RECORDS SUMMARY | 2024-03-03 01:17 | XMS_ITS | Encounter Summary ---
Author Organization [facility] Address [address] [place] [address]. [place] [address] [place] [address] Care Team Providers Care Chemical Production Machine Operator Name Role Phone Colton SILVEIRA MD, Yasmin Rushing Primary Care Provider Victoriano Langston MD Unavailable [phone] Reason for Referral * Consultation (Urgent) - Authorized Specialty Diagnoses / Procedures Referred By Contxavier t Referred To Contact INFECTIOUS DISEASE Diagnoses History of recurrent UTIs Procedures OFFICE/OUTPATIENT NEW LOW MDM 30-44 MINUTES OFFICE/OUTPT VISIT,NEW,LEVL IV OFFICE/OUTPT VISIT,NEW,LEVL V OFFICE/OUTPT VISIT,EST,LEVL III OFFICE/OUTPT VISIT,EST,LEVL IV OFFICE/OUTPT VISIT,EST,LEVL V Yasmin Valenzuela II, MD 100 [place] [address] Phone: tel: fax: [facility] [address] [place] [address] Phone: tel: fax: Referral ID Status Reason Start Date Expiration Date Visits Requested Visits Authorized [id number] Authorized Specialty Services 10/31/2023 10/28/2024 99 99 [...] Description 10/29/2023 10:50 AM CDT Office Visit [facility] Family Medicine - [place] 100 [place] [phone] Yasmin Valenzuela II, MD 100 [place] [address] Health Maintenance Follow Up (Patient presents for health maintenance to follow up for hypertension, diabetes and A1C check) Social History Tobacco Use Types Packs/Day Years Used Date Smoking Tobacco: Never Smokeless Tobacco: Never Tobacco Cessation:Counseling Given: No Alcohol Use Standard Drinks/Week Comments Not Currently 0 (1 standard drink = 0.6 oz pur e alcohol) few times per year [facility] Utilities Answer Date Recorded In the past 12 months has [email or web address], gas, oil, or water [employer] threatened to shut off services in your [...] 1 03/05/2023 [facility] Occupat ional [facility] - Occupational Stress Questionnaire Answer Date [...] in a halfway (including now)? No 03/06/2023 Comments No Sex [...] Body Mass Index 32.12 03/05/2023 1:02 PM REGULATORY TECHNICIAN documented in this encounter Functional Status * Are you deaf or do you have serious difficulty hearing Answer Date of Assessment Author Status No 03/06/2023 3:39 PM REGULATORY TECHNICIAN Teresa Amaya RN Active * Are you blind or do you have serious difficulty seeing, even when wearing glasses? Answer Date of Assessment Author Status Yes 03/06/2023 3:39 PM REGULATORY TECHNICIAN Teresa Amaya RN Active * Do you have serious difficulty walking or climbing stairs? Answer Date of Assessment Author Status Yes 03/06/2023 3:39 PM REGULATORY TECHNICIAN Teresa Amaya RN Active * Do you have difficulty dressing or bathing? Answer Date of Assessment Author Status Yes 03/06/2023 3:39 PM REGULATORY TECHNICIAN Teresa Amaya RN Active * Because of a physical, mental, or emotional condition, do you have difficulty doing errands alone such as visiting a doctor's office or shopping? Answer Date of Assessment Author Status Yes 03/06/2023 3:39 PM REGULATORY TECHNICIAN Teresa Amaya RN Active documented as of this encounter Mental Status * Because of a physical, mental, or emotional condition, do you have serious difficulty concentrating, remembering, or making decisions? Answer Entry Date Author Status No 03/06/2023 3:39 PM REGULATORY TECHNICIAN Teresa Amaya RN Active documented in this encounter Progress Notes * Yasmin Valenzuela II, MD - 10/29/2023 10:50 AM CDT Images from the original note were not included. [facility] FAMILY [address] [address] OFFICE FOLLOW UP NOTE Encounter Date: 10/29/2023 [...] else she can use. Infection disease at [facility] was not able to see patient secondary to not taking new patients at this time. Patient denies back pain or fevers. Here for evaluation and treatment recommendations. Review Of Systems: Positive ROS items as noted in HPI. All other Systems were reviewed and are negative. Patient Active Problem List Diagnosis Hypercholesteremia Hypertension Type 2 diabetes mellitus ([facility] H[facility]/HCC) Renal disorder Chronic bilateral low back pain without sciatica Callus of foot Vision decreased Renal stones Charcot foot due to diabetes mellitus ([facility]/HCC HHS/HCC) Hot flashes due to menopause Chest pain Diabetic foot infection ([facility]/HCC HHS/HCC) Osteomyelitis ([facility]/HCC HHS/HCC) Soft tissue infection of foot Necrotic toes ([facility]/HCC HHS/HCC) Acquired absence of other left toe(s) ([facility] HHS/HCC) Atherosclerosis of samish arteries of extremities with intermittent claudication, bilateral legs ([facility]/HCC) Intractable abdominal pain Abdominal pain Intractable vomiting Peptic ulcer Epigastric abdominal pain UTI (urinary tract infection) Class 1 obesity due to excess calories with serious comorbidity and body mass index (BMI) of 32.0 to 32.9 in adult Past Medical History: Diagnosis Date Arthritis Charcot foot due to diabetes mellitus ([facility]/HCC HHS/HCC) LEFT FOOT Constipation COVID-19 Diabetes mellitus ([facility]/HCC HHS/HCC) Diabetic neuropathy ([facility]/HCC HHS/HCC) Gastric ulcer High cholesterol Hypertension Kidney [...] min Stress: No Stress Concern Present (03/06/2023) Malag[place] [facility] - Occupational Stress Questionnaire [...] use of insulin ([facility]) semaglutide (OZEMPIC) 2 MG/3ML injection (PEN) 2. [...] use of insulin ([facility]/HCC [facility]/HCC) Patient is tolerating semaglutide well. We will [...] the day of the encounter. This includes rlcr-vc-vkmw and hhj-yzkf-in-face time I provided on the day of the encounter & excludes time spent performing separately reportable services. Medications Discontinued During This Encounter Medication Reason fosfomycin (MONUROL) 3 g Pack Duplicate Med semaglutide (OZEMPIC) 2 MG/3ML injection (PEN) Reorder YASMIN VALENZUELA MD 10/29/2023 Portions of this note were dictated using Ingogo speech recognition software. Occasional wrong wordor sound-alike substitutions may have occurred due to the inherent limitations of voice recognition software. Please read the chart carefully and recognize, using context, where the substitutions may have occurred. documented in this encounter Plan of Treatment Upcoming Encounters Date Type Department Care Team (Late st Contact Info) Description 03/14/2024 11:45 AM REGULATORY TECHNICIAN Office Visit [facility] [address] Marvin Mckeon MD Three [facility] [address] [place] [address] 03/20/2024 11:30 AM REGULATORY TECHNICIAN Office Visit [facility] Family Medicine - [address] [phone] Yasmin Valenzuela II, MD [address] [place] [address] Scheduled Referrals Name Type Priority Associated Diagnoses [...] (10/29/2023 11:00 AM CDT) CULTURE RESULT (A) cVidyaCRISTA MCGARRY Comment: ??CULTURE, URINE, ROUTINE ?Micro Number: ?[id number] ??Test Status: ? Final ??Specimen Source: ?? [...] Performing Organization Information: ?Site ID: [id number] ?Name: [facility] ?Address: [address] [place] [address] ?Director: Robert Mendez Yasmin Valenzuela II, MD MICROBIOLOGY - GENERAL ORDERABLES Final Result [facility] - [facility] ORDERS [facility]-[address] [address], [place] * (ABNORMAL) URINALYSIS AUTO DIP (10/29/2023) [...] Result [facility]-[address],[place] [address] [place] [address], [place] [phone] documented in this encounter Visit Diagnoses Diagnosis Type 2 diabetes mellitus with diabetic neuropathic arthropathy, with long-term current use of insulin ([facility]/HCC HHS/HCC)- Primary Acute cystitis without hematuria Acute [...] Total Score: 0 03/08/19 22 9:30 AM REGULATORY TECHNICIAN documented as of this encounter Care Teams Chemical Production Machine Operator Relationship Specialty Start Date End Date Yasmin Valenzuela II, MD 100 [place] [address] PCP - General FAMILY PRACTICE 03/09/21 [place] [address] [place] [address] PODIATRY/SURGERY 05/05/22 documented as of this encounter
--- OUTSIDE RECORDS SUMMARY | 2024-03-03 01:17 | XMS_ITS | Encounter Summary ---
Author Organization [facility] Address [address] [place] [address]. [place] [address] [place] [address] Care Team Providers Care Warehouse Trainer Name Role Phone Colton SILVEIRA MD, Abiodun Rushing Primary Care Provider Victoriano Langston MD Unavailable [phone] Encounter Details Date Type Department Care Team [...] doctor or pharmacy? Often 11/29/2023 [facility] Utilities Answer Date Recorded In the past 12 months has e [employer], or water [employer] threatened to shut off services in your [...] often do you attend chur ch or hindu services? Never 11/29/2023 Active Member of Clubs [...] Recorded Patient Health Questionnaire-2 Score 1 03/05/2023 [facility] Occupat ional Health - Occupational Stress [...] slept in a fdc (including now)? No 03/06/2023 Housing Stability Vital [...] time in the past 12 m [facility], were you homeless or living in a fdc (including now)? No 11/29/2023 Comments No Sex [...] st Contact Info) Description 03/14/2024 11:45 AM INBOUND TELEMARKETER Office Visit [facility] [address] Marvin Mckeon MD Three [facility] Suite [facility] [place], [place] [phone] 03/20/2024 11:30 AM INBOUND TELEMARKETER Office Visit [facility] Family Medicine - [address] [phone] Abiodun Segura II, MD [address] [place] [address] documented as of this encounter Goals Goal Patient Goal Type Associated Problems Recent Progress Patient-Stated? Author Family - family caregiver with be involved in care transitions and discharge planning Lifestyle Natty Angeles, RN documented as of this encounter Visit Diagnoses Not on filedocumented in this encounter Additional Health Concerns Assessment Noted Time PHQ-9 Depression Total Score: 0 03/08/19 9:30 AM INBOUND TELEMARKETER documented as of this encounter Care Teams Warehouse Trainer Relationship Specialty Start Date End Date Abiodun Segura II, MD 100 [place] [address] PCP - General FAMILY PRACTICE 03/09/21 [place] [address] [place] [address] PODIATRY/SURGERY 05/05/22 documented as of this encounter
--- OUTSIDE RECORDS SUMMARY | 2024-03-03 01:17 | XMS_ITS | Encounter Summary ---
Author Organization [facility] Address [address] [place] [address]. [place] [address] [place] [address] Care Team Providers Care Clergy Member Name Role Phone Colton SILVEIRA MD, Abiodun Rushing Primary Care Provider Victoriano Langston MD Unavailable [phone] Reason for Visit * Reason Onset Date Comments Medication Request 12/25/2023 Encounter Details Date Type Department Care Team (Late st Contact Info) Description 12/25/2023 Telephone [facility] Family Medicine - [place] 100 [place] [address] Abiodun Segura II, MD 100 [place] [address] Medication Request Social History Tobacco [...] from your doctor or pharmacy? Often 11/29/2023 [facility] Utilities Answer Date Recorded In [...] 11/29/2023 How often do you attend chur [employer] or latter day services? Never 11/29/2023 Active Member of Clubs [...] any time in the past 12 m [facility], were you homeless or [...] She will stop simvastatin while taking diflucan O REPAIRMAN * Sydney Cobos MA - 12/25/2023 9:19 AM CST Will you prescribe medication for yeast infection? O REPAIRMAN * Cate Smith - 12/25/2023 8:52 AM CST Pt was in the office on 12/12. She was taking an antibiotic at the time and now she has a yeast infection. She wants to know if something can be called out for her for this [facility] - [place], [place] - [address] [[id number]] O REPAIRMAN documented in this encounter Plan of Treatment Upcoming Encounters Date Type Department Care Team (Late st Contact Info) Description 03/14/2024 11:45 AM RADIO REPAIRMAN Office Visit [facility] [address] Marvin Mckeon MD [address] [facility] [address] [place] [address] 03/20/2024 11:30 AM RADIO REPAIRMAN Office Visit [facility] Family Medicine - [place] 100 [place] [phone] Abiodun Segura II, MD 100 [place] [address] documented as of this encounter Goals Goal Patient Goal Type Associated Problems Recent Progress Patient-Stated? Author Family - family caregiver with be involved in care transitions and discharge planning Lifestyle No Natty Cheek, RN documented as of this encounter Visit Diagnoses Not on filedocumented in this encounter Additional Health Concerns Assessment Noted Time PHQ-9 Depression Total Score: 0 03/08/19 22 9:30 AM RADIO REPAIRMAN documented as of this encounter Care Teams Clergy Member Relationship Specialty Start Date End Date Abiodun Segura II, MD 100 [place] [address] PCP - General FAMILY PRACTICE 03/09/21 [place] [address] [place] [address] PODIATRY/SURGERY 05/05/22 documented as of this encounter
--- OUTSIDE RECORDS SUMMARY | 2024-03-03 01:17 | XMS_ITS | Encounter Summary ---
Author Organization [facility] Address [address] [place] [address]. [place] [address] [place] [address] Care Team Providers Care Poleyard Supervisor Name Role Phone Colton SILVEIRA MD, Abiodun Rushing Primary Care Provider Victoriano Langston MD Unavailable [phone] Encounter Details Date Type Department Care Team (Late st Contact Info) Description 12/25/2023 Orders Only [facility] Family Medicine - [place] 100 [place] [address] Abiodun Segura II, MD 100 [place] [address] Social History Tobacco Use Types [...] your doctor or pharmacy? Often 11/29/2023 [facility] Utilities Answer Date Recorded In [...] 11/29/2023 How often do you attend chur [employer] or jew services? Never 11/29/2023 Active Member of Clubs [...] Recorded Patient Health Questionnaire-2 Score 1 03/05/2023 [facility] of Occupat ional Health - Occupational [...] in a fci (including now)? No 03/06/2023 Housing Stability Vital [...] were you homeless or living in a fci (including now)? No 11/29/2023 Comments No Sex [...] Contact Info) Description 03/14/2024 11:45 AM STOCK ANALYST Office Visit [facility] [phone] Marvin Mckeon MD [facility] [address] [place] [address] 03/20/2024 11:30 AM STOCK ANALYST Office Visit [facility] Family Medicine - [place] 100 [place] [phone] Abiodun Segura II, MD 100 [place] [address] documented as of this encounter Goals Goal [...] Total Score: 0 03/08/19 22 9:30 AM STOCK ANALYST documented as of this encounter Care Teams Poleyard Supervisor Relationship Specialty Start Date End Date Abiodun Segura II, MD 100 [place] [address] PCP - General FAMILY PRACTICE 03/09/21 [place] [address] [place] [address] PODIATRY/SURGERY 05/05/22 documented as of this encounter
--- OUTSIDE RECORDS SUMMARY | 2024-03-03 01:17 | XMS_ITS | Encounter Summary ---
Author Organization [facility] Address [address] [place] [address]. [place] [address] [place] [address] Care Team Providers Care Information Tech Name Role Phone Colton SILVEIRA MD, Abiodun Rushing Primary Care Provider Victoriano Langston MD Unavailable [phone] Reason for Visit * Reason Onset Date Comments TCM 12/03/2023 Encounter Details Date Type Department Care Team (Late st Contact Info) Description 12/03/2023 Telephone [facility] Family Medicine - [place] 100 [place] [address] Abiodun Segura II, MD 100 [place] [address] TCM Social History Tobacco Use [...] week 11/29/2023 How often do you attend [facility] [employer] or sikh services? Never 11/29/2023 Active Member of Clubs [...] Recorded Patient Health Questionnaire-2 Score 1 03/05/2023 [facility] of Occupat ional Health [...] Date of hospital discharge: 12/02/23 Patient [facility] from:[facility] Discharge diagnosis/diagnoses: UTI (urinary tract [...] st Contact Info) Description 03/14/2024 11:45 AM MICROFILM OPERATOR Office Visit [facility] [phone] Marvin Mckeon MD [address] [facility] [address] [place], [place] [phone] 03/20/2024 11:30 AM MICROFILM OPERATOR Office Visit [facility] Family Medicine - [place] 100 [place] [phone] Abiodun Segura II, MD 100 [place], [place] [phone] documented as of this encounter Goals Goal Patient Goal Type Associated Problems Recent Progress Patient-Stated? Author Family - family caregiver with be involved in care transitions and discharge planning Lifestyle No Natty Cheek, RN documented as of this encounter Visit Diagnoses Not on filedocumented in this encounter Additional Health Concerns Assessment Noted Time PHQ-9 Depression Total Score: 0 03/08/19 22 9:30 AM MICROFILM OPERATOR documented as of this encounter Care Teams Information Tech Relationship Specialty Start Date End Date Abiodun Segura II, MD 100 [place], [place] [phone] PCP - General FAMILY PRACTICE 03/09/21 [place] [address] [place] [address] PODIATRY/SURGERY 05/05/22 documented as of this encounter
--- OUTSIDE RECORDS SUMMARY | 2024-03-03 01:17 | XMS_ITS | Encounter Summary ---
Author Organization [facility] Address [address] [place] [address]. 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 (CMS/HCC HHS/HCC) Procedures USV ART REST W ADRIANA LOW EXT USV ADRIANA LTD Hubert Schreiber DPM [address] [place] [address] Phone: tel: fax: Referral ID Status Reason Start Date Expiration Date Visits Re quested Visits Authorized [id number] Closed 02/22/2023 02/23/2024 1 1 Reason for Visit * Imaging (Routine) - Closed Specialty Diagnoses / Procedures Referred By Contac t Referred To Contact RADIOLOGY Diagnoses Osteoarthritis of feet, 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 [place], [place] [id number] Discharge Disposition: Home or Self Care (Routine [...] from your doctor or pharmacy? Often 11/29/2023 [facility] Utilities Answer Date Recorded In the past 12 months has e [employer], gas, oil, or water [employer] threatened to shut off services in your [...] often do you attend chur ch or lutheran services? Never 11/29/2023 Active Member of Clubs [...] a long term (including now)? No 03/06/2023 Housing Stability Vital Sign Answer Raymon e Recorded In the last 12 months, was t here a time when you were not able to pay the mortgage or rent on time? No 11/29/2023 In the past 12 months, how m any times have you moved where you were living? 1 11/29/2023 At any time in the past 12 m [facility], were you homeless or living in a long term (including now)? No 11/29/2023 Comments No Sex [...] st Contact Info) Description 03/14/2024 11:45 AM HEALTH SAFETY AND ENVIRONMENT MANAGER Office Visit [facility] [address] Marvin Mckeon MD [address] [facility] [address] [place], [place] [phone] 03/20/2024 11:30 AM HEALTH SAFETY AND ENVIRONMENT MANAGER Office Visit [facility] Family Medicine - [place] 100 [place] [phone] Abiodun Segura II, MD [address] [place] [address] documented as of this encounter Goals Goal [...] 2 diabetes mellitus with other circulatory complications ([facility]) documented in this encounter Results * USV ART REST W ADRIANA LOW EXT (12/19/2023 1:28 PM CDT) Anatomical Region Laterality Modality Extremity Vascular Ultraso und 12/19/2023 12:4 6 PM CDT Narrative 12/22/2023 7:57 PM CDT ?ARTERIAL DOPPLER - ADRIANA ?BILATERAL LOWER EXTREMITY ? VASCULAR LAB Pat.Name: ??LENA YOUNGBLOOD ?Pat.ID: ?[id number] ? St.Date: ?? 12/19/2023 ? Refer.: ??[id number], Zoila gilman Exam Time: 12:46:00 PM ? [...] VASCULAR LAB Pat.Name: FORD LENA GUZMANY Pat.ID: [id number] .Date: 12/19/2023 Hany.: [id number] Exam Time: 12:46:00 PM Study Type:MARINO VS Arterial Doppler Legs ONHEMY Age: 2 1970,53Y Sex: F Sonogrphr: Reynaldo [...] 2 diabetes mellitus with other circulatory complications ([facility]/HCC HHS/HCC) documented in this encounter Additional Health Concerns Assessment Noted Time PHQ-9 Depression Total Score: 0 03/08/19 22 9:30 AM HEALTH SAFETY AND ENVIRONMENT MANAGER documented as of this encounter Care Teams Foreign Agent Relationship Specialty Start Date End Date Abiodun Segura II, MD [address] [place] [address] PCP - General FAMILY PRACTICE 03/09/21 [place] [address] [place] [address] PODIATRY/SURGERY 05/05/22 documented as of this encounter
--- OUTSIDE RECORDS SUMMARY | 2024-03-03 01:17 | XMS_ITS | Encounter Summary ---
Author Organization [facility] Address [address] [place] [address]. [place] [address] [place] [address] Care Team Providers Care Metal Products Fabricator Assembler Name Role Phone Colton SILVEIRA MD, Abiodun Rushing Primary Care Provider Victoriano Langston MD Unavailable [phone] Encounter Details Date Type Department Care Team [...] from your doctor or pharmacy? Often 11/29/2023 [facility] Utilities Answer Date Recorded In the past 12 months has [employer], [employer], oil, or water [employer] threatened to shut off services in your [...] Recorded Patient Health Questionnaire-2 Score 1 03/05/2023 [facility] [...] in a assisted (including now)? No 03/06/2023 Housing Stability Vital Sign Answer Raymon e Recorded In the last 12 months, was t here a time when you were not able to pay the mortgage or rent on time? No 11/29/2023 In the past 12 months, how m any times have you moved where you were living? 1 11/29/2023 At any time in the past 12 m [facility], were you homeless or living in a assisted (including now)? No 11/29/2023 Comments No Sex [...] st Contact Info) Description 03/14/2024 11:45 AM LICENSED TAX CONSULTANT Office Visit [facility]-[address] [address] Marvin Mckeon MD Three [facility] [address] [place] [address] 03/20/2024 11:30 AM LICENSED TAX CONSULTANT Office Visit [facility] Family Medicine - [place] 100 [place] [phone] Abiodun Segura II, MD [address] [place] [address] documented as of this encounter Goals Goal Patient Goal Type Associated Problems Recent Progress Patient-Stated? Author Family - family caregiver with be involved in care transitions and discharge planning Lifestyle Natty [place] RN documented as of this encounter Visit Diagnoses Not on filedocumented in this encounter Additional Health Concerns Assessment Noted Time PHQ-9 Depression Total Score: 0 03/08/19 22 9:30 AM LICENSED TAX CONSULTANT documented as of this encounter Care Teams Metal Products Fabricator Assembler Relationship Specialty Start Date End Date Abiodun Segura II, MD [address] [place] [address] PCP - General FAMILY PRACTICE 03/09/21 [place] [address] [place] [address] PODIATRY/SURGERY 05/05/22 documented as of this encounter
--- OUTSIDE RECORDS SUMMARY | 2024-03-03 01:17 | XMS_ITS | Encounter Summary ---
Author Organization [facility] Address [address] [place] [address]. [place] [address] [place] [address] Care Team Providers Care College Tutor Name Role Phone Colton SILVEIRA MD, Abiodun Rushing Primary Care Provider Victoriano Langston MD Unavailable [phone] Encounter Details Date Type Department Care Team [...] your doctor or pharmacy? Often 11/29/[address] [facility] Utilities Answer Date Recorded In the past 12 months has e [employer], [employer], or water [employer] ([employer]) threatened to shut off services in your [...] often do you attend chur ch or latter-day services? Never 11/29/2023 Active Member of Clubs [...] Patient Health Questionnaire-2 Score 1 03/05/2023 [facility] of Occupat ional Health [...] any time in the past 12 m [facility], were you homeless or [...] Contact Info) Description 03/14/2024 11:45 AM CRIME DATA SPECIALIST Office Visit [facility] [address] Marvin Mckeon MD Three [facility] [address] [place], [place] [phone] 03/20/2024 11:30 AM CRIME DATA SPECIALIST Office Visit [facility] Family Medicine - [address] [phone] Abiodun Segura II, MD [address] [place] [address] documented as of this encounter Goals Goal Patient Goal Type Associated Problems Recent Progress Patient-Stated? Author Family - family caregiver with be involved in care transitions and discharge planning Lifestyle Natty [place], RN documented as of this encounter Visit Diagnoses Not on filedocumented in this encounter Additional Health Concerns Assessment Noted Time PHQ-9 Depression Total Score: 0 03/08/19 9:30 AM CRIME DATA SPECIALIST documented as of this encounter Care Teams College Tutor Relationship Specialty Start Date End Date Abiodun Segura II, MD [address] [place] [address] PCP - General FAMILY PRACTICE 03/09/21 [place] [address] [place] [address] PODIATRY/SURGERY 05/05/22 documented as of this encounter
--- OUTSIDE RECORDS SUMMARY | 2024-03-03 01:17 | XMS_ITS | Encounter Summary ---
Author Organization [facility] Address [address] [place] [address]. [place], [place] [address] [place] [address] Care Team Providers Care Site Head Name Role Phone Colton SILVEIRA MD, Abiodun Rushing Primary Care Provider Victoriano Langston MD Unavailable [phone] Encounter Details Date Type Department Care Team (Latest Contact Info) Description 10/26/2023 Scan HEALTH INFO SRVCS Scanned, Doc Med Group Social History Tobacco Use Types Packs/Day Years Used Date Smoking Tobacco: Never Smokeless Tobacco: Never Alcohol Use Standard Drinks/Week Comments Not Currently 0 (1 standard drink = 0.6 oz pur e alcohol) few times per year [facility] Utilities Answer Date Recorded In the past 12 months has [facility] [employer], gas, oil, or water [email or web address] threatened to shut off services in your [...] Recorded Patient Health Questionnaire-2 Score 1 03/05/2023 [facility] of Occupat ional Health - [...] No 03/06/2023 Housing Stability Vital Sign Answer Ryamon e [...] st Contact Info) Description 03/14/2024 11:45 AM HOME AGENT Office Visit [facility]-[address] [address] Marvin Mckeon MD [facility] [address] [place] [address] 03/20/2024 11:30 AM HOME AGENT Office Visit [facility] Medical [facility] Family Medicine - [place] 100 [place] [phone] Abiodun Segura II, MD [address] [place] [address] documented as of this encounter Goals Goal Patient Goal Type Associated Problems Recent Progress Patient-Stated? Author Family - family caregiver with be involved in care transitions and discharge planning Lifestyle No Natty Cheek, RN documented as of this encounter Visit Diagnoses Not on filedocumented in this encounter Additional Health Concerns Assessment Noted Time PHQ-9 Depression Total Score: 0 03/08/19 9:30 AM HOME AGENT documented as of this encounter Care Teams Site Head Relationship Specialty Start Date End Date Abiodun Segura II, MD [address] [place] [address] PCP - General FAMILY PRACTICE 03/09/21 [place] [address] [place] [address] PODIATRY/SURGERY 05/05/22 documented as of this encounter
--- OUTSIDE RECORDS SUMMARY | 2024-03-03 01:17 | XMS_ITS | Encounter Summary ---
Author Organization [facility] Address [address] [place] [address]. [place] [address] [place] [address] Care Team Providers Care Wildlife Control Agent Name Role Phone Colton SILVEIRA MD, Abiodun Rushing Primary Care Provider Victoriano Langston MD Unavailable [phone] Encounter Details Date Type Department Care Team [...] from your doctor or pharmacy? Often 11/29/2023 [facility] Utilities Answer Date Recorded In the past 12 months has e [employer], [employer], or water [employer] threatened to shut off services in your [...] often do you attend chur ch or congregational services? Never 11/29/2023 Active Member of Clubs [...] Recorded Patient Health Questionnaire-2 Score 1 03/05/2023 [facility] of Occupat ional Health - [...] st Contact Info) Description 03/14/2024 11:45 AM JIG OPERATOR Office Visit [facility] [phone] Marvin Mckeon MD [facility] [address] [facility] [place] [address] 03/20/2024 11:30 AM JIG OPERATOR Office Visit [facility] Medical Group Family Medicine - [place] 100 [place] [phone] Abiodun Segura II, MD 100 [place] [address] documented as of this encounter Goals Goal Patient Goal Type Associated Problems Recent Progress Patient-Stated? Author Family - family caregiver with be involved in care transitions and discharge planning Lifestyle No Natty Cheek, RN documented as of this encounter Visit Diagnoses Not on filedocumented in this encounter Additional Health Concerns Assessment Noted Time PHQ-9 Depression Total Score: 0 03/08/19 9:30 AM JIG OPERATOR documented as of this encounter Care Teams Wildlife Control Agent Relationship Specialty Start Date End Date Abiodun Segura II, MD [address] [place] [address] PCP - General FAMILY PRACTICE 03/09/21 [place] [address] [place] [address] PODIATRY/SURGERY 05/05/22 documented as of this encounter
--- OUTSIDE RECORDS SUMMARY | 2024-03-03 01:17 | XMS_ITS | Encounter Summary ---
Author Organization [facility] Address [address] [place] [address]. [place], [place] [address] [place] [address] Care Team Providers Care Kiln Stacker Name Role Phone Colton SILVEIRA MD, Abiodun Rushing Primary Care Provider Victoriano Langston MD Unavailable [phone] Encounter Details Date Type Department Care Team [...] from your doctor or pharmacy? Often 11/29/2023 [facility] Utilities Answer Date Recorded In the past 12 months has [employer], [employer], oil, or water [employer] threatened to shut off services in your [...] often do you attend chur ch or mandaeism services? Never 11/29/2023 Active Member of Clubs [...] Recorded Patient Health Questionnaire-2 Score 1 03/05/2023 [facility] of Occupat ional Health - Occupational [...] in a half-way (including now)? No 03/06/2023 Housing Stability Vital Sign Answer Raymon e Recorded In the last 12 months, was t here a time when you were not able to pay the mortgage or rent on time? No 11/29/2023 In the past 12 months, how m any times have you moved where you were living? 1 11/29/2023 At any time in the past 12 m [facility], were you homeless or living in a half-way (including now)? No 11/29/2023 Comments No Sex [...] st Contact Info) Description 03/14/2024 11:45 AM MOBILE WEB APPLICATION DEVELOPER Office Visit [facility]-[address] [address] Marvin Mckeon MD Three [facility] [address] [place] [address] 03/20/2024 11:30 AM MOBILE WEB APPLICATION DEVELOPER Office Visit [facility] Family Medicine - [place] 100 [place] [phone] Abiodun Segura II, MD [address] [place] [address] documented as of this encounter Goals Goal Patient Goal Type Associated Problems Recent Progress Patient-Stated? Author Family - family caregiver with be involved in care transitions and discharge planning Lifestyle Natty [place] RN documented as of this encounter Visit Diagnoses Not on filedocumented in this encounter Additional Health Concerns Assessment Noted Time PHQ-9 Depression Total Score: 0 03/08/19 22 9:30 AM MOBILE WEB APPLICATION DEVELOPER documented as of this encounter Care Teams Kiln Stacker Relationship Specialty Start Date End Date Abiodun Segura II, MD [address] [place] [address] PCP - General FAMILY PRACTICE 03/09/21 [place] [address] [place] [address] PODIATRY/SURGERY 05/05/22 documented as of this encounter
--- OUTSIDE RECORDS SUMMARY | 2024-03-03 01:17 | XMS_ITS | Encounter Summary ---
Author Organization [facility] Address [address] [place] [address]. [place] [address] [place] [address] Care Team Providers Care Hemp Fiber Taker Off Name Role Phone Colton SILVEIRA MD, Abiodun Rushing Primary Care Provider Victoriano Langston MD Unavailable [phone] Reason for Visit * Reason Onset Date Comments TCM 01/24/2024 Encounter Details Date Type Department Care Team (Late st Contact Info) Description 01/24/2024 Telephone [facility] Family Medicine - [place] 100 [place] [address] Abiodun Segura II, MD 100 [place] [address] TCM Social History Tobacco Use [...] from your doctor or pharmacy? Often 11/29/2023 [facility] Utilities Answer Date Recorded In [...] week 11/29/2023 How often do you attend [facility] [employer] or jehovah's witness services? Never 11/29/2023 Active [...] Recorded Patient Health Questionnaire-2 Score 1 03/05/2023 [facility]at ional Health - [...] complexity) Appointment Date: 02/07/24 Time: 10:30 am 'S MASTER documented in this encounter Plan of Treatment Upcoming Encounters Date Type Department Care Team (Late st Contact Info) Description 03/14/2024 11:45 AM SHIP'S MASTER Office Visit [facility]-[address] [address] Marvin Mckeon MD [address] [facility] [address] [place], [place] [phone] 03/20/2024 11:30 AM SHIP'S MASTER Office Visit [facility] Medical Group Family Medicine - [place] [address] [place] [phone] Abiodun Segura II, MD [address] [place], [place] [phone] documented as of this encounter Goals Goal Patient Goal Type Associated Problems Recent Progress Patient-Stated? Author Family - family caregiver with be involved in care transitions and discharge planning Lifestyle No Natty Cheek, RN documented as of this encounter Visit Diagnoses Not on filedocumented in this encounter Additional Health Concerns Assessment Noted Time PHQ-9 Depression Total Score: 0 03/08/19 22 9:30 AM SHIP'S MASTER documented as of this encounter Care Teams Hemp Fiber Taker Off Relationship Specialty Start Date End Date Abiodun Segura II, MD [address] [place] [id number] PCP - General FAMILY PRACTICE 03/09/21 [place] [address] [place] [address] PODIATRY/SURGERY 05/05/22 documented as of this encounter
--- OUTSIDE RECORDS SUMMARY | 2024-03-03 01:17 | XMS_ITS | Encounter Summary ---
Author Organization [facility] Address [address] [place] [address]. [place] [address] [place] [address] Care Team Providers Care Children'S Lunchroom Supervisor Name Role Phone Colton SILVEIRA MD, Abiodun Rushing Primary Care Provider Victoriano Langston MD Unavailable [phone] Reason for Visit * Reason Onset Date Comments Medication 01/28/2024 Lisinopril and S imvastatin medication adherence. Encounter Details Date Type Department Care Team (Latest Contact Info) Description 01/28/2024 Patient Outreach [facility] Family Medicine - [place] [address] Tristan Morse, [facility] Medication (Lisinopril and Simvastatin medication adherence. [...] doctor or pharmacy? Often 11/29/2023 [facility] Utilities Answer Date Recorded In the [...] 11/29/2023 How often do you attend chur [employer] or samaritan services? Never 11/29/2023 Active Member of Clubs [...] Health Questionnaire-2 Score 1 03/05/2023 [facility]at ional Health - Occupational [...] any time in the past 12 m [facility], were you homeless or living in [...] back. No further contact at this time. WARE DEVELOPMENT SPECIALIST documented in this encounter Plan of Treatment Upcoming Encounters Date Type Department Care Team (Late st Contact Info) Description 03/14/2024 11:45 AM SOFTWARE DEVELOPMENT SPECIALIST Office Visit [facility]-[address] [address] Marvin Mckeon MD [facility] [address] [place] [address] 03/20/2024 11:30 AM SOFTWARE DEVELOPMENT SPECIALIST Office Visit [facility] Family Medicine - [place] 100 [place] [phone] Abiodun Segura II, MD 100 [place] [address] documented as of this encounter Goals Goal Patient Goal Type Associated Problems Recent Progress Patient-Stated? Author Family - family caregiver with be involved in care transitions and discharge planning Lifestyle No Natty Cheek, RN documented as of this encounter Visit Diagnoses Not on filedocumented in this encounter Additional Health Concerns Assessment Noted Time PHQ-9 Depression Total Score: 0 03/08/19 9:30 AM SOFTWARE DEVELOPMENT SPECIALIST documented as of this encounter Care Teams Children'S Lunchroom Supervisor Relationship Specialty Start Date End Date Abiodun Segura II, MD [address] [place] [address] PCP - General FAMILY PRACTICE 03/09/21 [place] [address] [place] [address] PODIATRY/SURGERY 05/05/22 documented as of this encounter
--- OUTSIDE RECORDS SUMMARY | 2024-03-03 01:17 | XMS_ITS | Encounter Summary ---
Author Organization [facility] Address [address] [place] [address]. [place], [place] [address] [place] [address] Care Team Providers Care Health Information Manager Name Role Phone Colton SILVEIRA MD, Abiodun Rushing Primary Care Provider Victoriano Langston MD Unavailable [phone] Encounter Details Date Type Department Care Team [...] Recorded In the past 12 months has [employer], [employer], oil, or water [employer] threatened to shut off services in your [...] often do you attend chur ch or church services? Never 11/29/2023 Active Member of Clubs [...] Recorded Patient Health Questionnaire-2 Score 1 03/05/2023 [facility] Occupat ional Health [...] the past 12 m [facility], were you homeless or living in a [...] st Contact Info) Description 03/14/2024 11:45 AM TAX PREPARER Office Visit [facility] [facility]-[address] [phone] Marvin Mckeon MD [facility] [address] [place] [address] 03/20/2024 11:30 AM TAX PREPARER Office Visit [facility] Family Medicine - [place] 100 [place] [phone] Abiodun Segura II, MD 100 [place] [address] documented as of this encounter Goals Goal Patient Goal Type Associated Problems Recent Progress Patient-Stated? Author Family - family caregiver with be involved in care transitions and discharge planning Lifestyle No Natty Cheek, RN documented as of this encounter Visit Diagnoses Not on filedocumented in this encounter Additional Health Concerns Assessment Noted Time PHQ-9 Depression Total Score: 0 03/08/19 9:30 AM TAX PREPARER documented as of this encounter Care Teams Health Information Manager Relationship Specialty Start Date End Date Abiodun Segura II, MD [address] [place] [address] PCP - General FAMILY PRACTICE 03/09/21 [place] [address] [place] [address] PODIATRY/SURGERY 05/05/22 documented as of this encounter
--- OUTSIDE RECORDS SUMMARY | 2024-03-03 01:17 | XMS_ITS | Encounter Summary ---
Author Organization [facility] Address [address] [place] [address]. [place] [address] [place] [address] Care Team Providers Care Lumber Racker Name Role Phone Colton SILVEIRA MD, Abiodun Rushing Primary Care Provider Victoriano Langston MD Unavailable [phone] Encounter Details Date Type Department Care Team [...] from your doctor or pharmacy? Often 11/29/2023 [facility] Utilities Answer Date Recorded In the past 12 months has e [employer], [employer], or water [employer] threatened to shut off services in [...] often do you attend chur ch or faith services? Never 11/29/2023 Active Member of Clubs [...] in a senior living (including now)? No 03/06/2023 Housing Stability Vital [...] you homeless or living in a senior living (including now)? No 11/29/2023 Comments No Sex [...] Contact Info) Description 03/14/2024 11:45 AM LEAD MILITARY ANALYST Office Visit [facility] [phone] Marvin Mckeon MD [facility] [place], [place] [phone] 03/20/2024 11:30 AM LEAD MILITARY ANALYST Office Visit [facility] Family Medicine - [address] [phone] Abiodun Segura II, MD [address] [place] [phone] documented as of this encounter Goals Goal Patient Goal Type Associated Problems Recent Progress Patient-Stated? Author Family - family caregiver with be involved in care transitions and discharge planning Lifestyle Natty [place], RN documented as of this encounter Visit Diagnoses Not on filedocumented in this encounter Additional Health Concerns Assessment Noted Time PHQ-9 Depression Total Score: 0 03/08/19 9:30 AM LEAD MILITARY ANALYST documented as of this encounter Care Teams Lumber Racker Relationship Specialty Start Date End Date Abiodun Segura II, MD [address] [place] [address] PCP - General FAMILY PRACTICE 03/09/21 [place] [address] [place] [address] PODIATRY/SURGERY 05/05/22 documented as of this encounter
--- OUTSIDE RECORDS SUMMARY | 2024-03-03 01:17 | XMS_ITS | Encounter Summary ---
Author Organization [facility] Address [address] [place] [address]. [place], [place] [phone] [place] [id number] Care Team Providers Care Rate Marker Name Role Phone Colton SILVEIRA MD, Abiodun Rushing Primary Care Provider Victoriano Langston MD Unavailable [phone] Encounter Details Date Type Department Care Team (Latest Contact Info) Description 10/29/2023 Travel Social History Tobacco Use Types Packs/Day Years Used Date Smoking Tobacco: Never Smokeless Tobacco: Never Alcohol Use Standard Drinks/Week Comments Not Currently 0 (1 standard drink = 0.6 oz pur e alcohol) few times per year [facility] Utilities Answer Date Recorded In the past 12 months has e [employer], gas, oil, or water [employer] threatened to shut off services in your [...] Patient Health Questionnaire-2 Score 1 03/05/2023 [facility] - [...] slept in a custodial (including now)? No 03/06/2023 Comments No Sex [...] st Contact Info) Description 03/14/2024 11:45 AM GUN STOCK CHECKER Office Visit [facility] [phone] Marvin Mckeon MD [facility] [address] [place] [address] 03/20/2024 11:30 AM GUN STOCK CHECKER Office Visit [facility] Family Medicine - [place] [address] [place] [phone] Abiodun Segura II, MD 100 [place] [address] documented as of this encounter Goals Goal Patient Goal Type Associated Problems Recent Progress Patient-Stated? Author Family - family caregiver with be involved in care transitions and discharge planning Lifestyle Natty [place], RN documented as of this encounter Visit Diagnoses Not on filedocumented in this encounter Additional Health Concerns Assessment Noted Time PHQ-9 Depression Total Score: 0 03/08/19 9:30 AM GUN STOCK CHECKER documented as of this encounter Care Teams Rate Marker Relationship Specialty Start Date End Date Abiodun Segura II, MD [address] [place] [address] PCP - General FAMILY PRACTICE 03/09/21 [place] [address] [place] [address] PODIATRY/SURGERY 05/05/22 documented as of this encounter
--- OUTSIDE RECORDS SUMMARY | 2024-03-03 01:17 | XMS_ITS | Encounter Summary ---
Author Organization [facility] Address [address] [place] [address]. [place] [address] [place] [address] Care Team Providers Care Circuit Manager Name Role Phone Colton SILVEIRA MD, Yasmin Rushing Primary Care Provider Victoriano Langston MD Unavailable [phone] Reason for Visit * Reason Comments TCM Patient presents for hospital follow up for UTI Encounter Details Date Type Department Care Team (Late st Contact Info) Description 12/13/2023 10:30 AM CDT Office Visit [facility] Family Medicine - [place] [address] [place] [phone] Yasmin Valenzuela II, MD [address] [place] [address] TCM (Patient presents for hospital [...] Recorded In the past 12 months has [employer], [employer], or [employer] threatened to shut off services in your [...] often do you attend chur ch or orthodox services? Never 11/29/2023 Active Member of Clubs [...] Recorded Patient Health Questionnaire-2 Score 1 03/05/2023 [facility] - Occupational [...] any time in the past 12 m [facility], were you homeless or living in a [...] not included. [facility] [address] [address] TCM NOTE Encounter Date: 12/13/2023 Chief Complaint: [...] Diagnosis Hypercholesteremia Hypertension Type 2 diabetes mellitus ([facility]/HCC HHS/HCC) Renal disorder Chronic bilateral low back pain without sciatica Callus of foot Vision decreased Renal stones Charcot foot due to diabetes mellitus (CMS/HCC HHS/HCC) Hot flashes due to menopause Chest pain Diabetic foot infection (CMS/HCC HHS/HCC) Osteomyelitis (CMS/HCC HHS/HCC) Soft tissue infection of foot Necrotic toes (CMS/HCC HHS/HCC) Acquired absence of other left toe(s) ([facility]/HCC HHS/HCC) Atherosclerosis of ute arteries of extremities with intermittent claudication, bilateral [...] min Stress: No Stress Concern Present (11/29/2023) [employer] [facility] - Occupational Stress Questionnaire Feeling of Stress : Not at all Social Connections: Moderately Isolated (11/29/2023) Social Connection and Isolation Panel [NHANES] Frequency of Communication with Friends and Family: More than three times a week Frequency of Social Gatherings with Friends and Family: More than three times a week Attends Yarsanism Services: Never Active Member of Clubs or [...] with long- term current use of insulin ([facility]) semaglutide (OZEMPIC) 1 mg/dose injection (PEN) HEMOGLOBIN, GLYCOSYLATED A1C (BACK OFFICE) COLLECT.CAPILLARY (FNGR,HEEL,EAR) 3. Charcot foot due to diabetes mellitus ([facility]) 4. Hypercholesteremia LIPID PANEL 5. Acquired absence of other left toe(s) ([facility]) 6. Atherosclerosis of ute arteries of extremities with intermittent claudication, bilateral legs([facility]) 7. Class 1 obesity due to excess [...] with long- term current use of insulin ([facility]) Patient's hemoglobin A1c is markedly improved. Patient [...] 3. Charcot foot due to diabetes mellitus ([facility]) Patient will continue podiatry care for her [...] ulcers at this time. 6. Atherosclerosis of ute arteries of extremities with intermittent claudication, bilateral [...] the day of the encounter. This includes ljqr-hq-gdmd and opl-gnnx-xn-face time I provided on the day of the encounter & excludes time spent performing separately reportable services. Medications Discontinued During This Encounter Medication Reason semaglutide (OZEMPIC) 2 MG/3ML injection (PEN) Dose adjustment YASMIN VALENZUELA MD 12/13/2023 Portions of this note were dictated using [employer] speech recognition software. Occasional wrong wordor sound-alike substitutions may have occurred due to the inherent limitations of voice recognition software. Please read the chart carefully and recognize, using context, where the substitutions may have occurred. documented in this encounter Plan of Treatment Upcoming Encounters Date Type Department Care Team (Late st Contact Info) Description 03/14/2024 11:45 AM ELECTRO MECHANICAL TECHNOLOGIST Office Visit [facility]-[address] [phone] Marvin Mckeon MD [facility] [address] [place] [address] 03/20/2024 11:30 AM ELECTRO MECHANICAL TECHNOLOGIST Office Visit [facility] Family Medicine - [address] [phone] Yasmin Valenzuela II, MD [address] [place], [place] [phone] Scheduled Orders Name Type Priority Associated Diagnoses Orde r Schedule HEMOGLOBIN, GLYCOSYLATED Lab Routine Type 2 diabetes mellitus with diabetic neuropathic arthropathy, with long-term current use of insulin ([facility]) Expected: 12/13/2023 (Approximate), Expires: 12/12/2024 CBC W/DIFF [...] use of insulin ([facility]) HEMOGLOBIN, GLYCOSYLATED Routine 12/13/2023 Type 2 diabetes mellitus with diabetic neuropathic arthropathy, with long-term current use of insulin ([facility]) documented in this encounter Results * A1C (BACK OFFICE) (12/13/2023) HGB A1C 8.2 % [facility] 12/13/2023 Yasmin Valenzuela II, MD LABORATORY Final R esult [facility] [facility] [address] [place] [address], [place] [phone] documented in this encounter Visit Diagnoses Diagnosis Primary hypertension- Primary Unspecified essential hypertension Type 2 diabetes mellitus with diabetic neuropathic arthropathy, with long-term current use of insulin ([facility]) Charcot foot due to diabetes mellitus ([facility]) Type II or unspecified type diabetes mellitus with neurological manifestations, not stated as uncontrolled Hypercholesteremia Pure hypercholesterolemia Acquired absence of other left toe(s) ([facility]) Atherosclerosis of ute arteries of extremities with intermittent claudication, bilateral legs ([facility]) Class 1 obesity due to excess calories with serious comorbidity and body mass index (BMI) of 32.0 to 32.9 in adult documented in this encounter Additional Health Concerns Assessment Noted Time PHQ-9 Depression Total Score: 0 03/08/19 22 9:30 AM ELECTRO MECHANICAL TECHNOLOGIST documented as of this encounter Care Teams Circuit Manager Relationship Specialty Start Date End Date Yasmin Valenzuela II, MD [address] [place] [address] PCP - General FAMILY PRACTICE 03/09/21 [place] [address] [place] [address] PODIATRY/SURGERY 05/05/22 documented as of this encounter
--- OUTSIDE RECORDS SUMMARY | 2024-03-03 01:17 | XMS_ITS | Encounter Summary ---
Author Organization [facility] Address [address] [place] [address]. [place], [place] [address] [place] [address] Care Team Providers Care Manager Bakery Name Role Phone Colton SILVEIRA MD, Yasmin Rushing Primary Care Provider Victoriano Langston MD Unavailable [phone] Reason for Referral * Imaging (Emergency) - New Request Specialty Diagnoses / Procedures Referred By Contac t Referred To Contact RADIOLOGY Procedures CT ABD+PEL W CON Janneth Perrin PA [address] [place] [address] Phone: tel: fax: Referral ID Status Reason Start Date Expiration Date V isits Requested Visits Authorized [id number] New Request 11/28/2023 11/27/2024 1 1 Reason for Visit * Reason Comments Urinary Symptoms Back Pain * Auth/Cert Specialty Diagnoses / Procedures Referred By Contac t Referred To Contact Diagnoses Pyelitis UTI (urinary tract infection) Procedures [place] [address] Phone: tel: [phone] fax: Referral ID Status Reason Start Date Expiration Date Visits Re quested Visits Authorized [id number] 1 1 Encounter Details Date Type Department Care Team (Late st Contact Info) Description 11/28/2023 10:33 PM CDT - 12/02/2023 10:41 AM CDT Hospital Encounter [facility] [address]rd [place] [address] Janneth Perrin PA [address] [place] [address] Noam Godoy MD [place], [place] 4256[address] [phone] (Work) Arlene Conley PA-C [address] [place] [address] [phone] (Work) Erin Peck PA-C [address] [place] [address] [phone] Urinary Symptoms; Back Pain Discharge Disposition: Home [...] from your doctor or pharmacy? Often 11/29/2023 [facility] Utilities Answer Date Recorded In the past 12 months has e [employer], gas, oil, or water [employer] threatened to shut off services in your [...] 11/29/2023 How often do you attend chur [employer] or rastafari services? Never 11/29/2023 Active Member [...] 1 03/05/2023 [facility] Occupat ionmn Health - Occupational Stress Questionnaire Answer Date [...] any time in the past 12 m [facility], were you homeless or [...] UTI, pyelonephritis Follows closely with ID at [facility]; see chart review Previous urine Cx 11/20 Enterococcus, suspected colonization per ID note Failed treatment with linezolid in the past Continue with vancomycin due to allergies Urology consulted. Appreciate recs -no further intervention recommended at this time Supportive care Repeat urine culture revealing Enterococcus as previous cultures Suspect colonization, consult ID for further recs - switch to Linezolid 600 mg BID [id number] Symptoms resolved on day of discharge Follow [...] December 02, 2023 8:32 AM Signed by: Erin Peck Last time this was given: December [...] arthropathy, with long-term current use of insulin ([facility]/HCC [facility]) Use as directed to inject [...] arthropathy, with long-term current use of insulin ([facility] HHS/HCC) 1 strip by Other route 2 (two) times daily. 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 All plans discussed with patient/patient's family/floral designer salesperson. They are agreeable with plan and voiced understanding. This note was dictated with Figure [employer] Surgical medical dictation software; misspellings, punctuation errors, omitted words or dictation variances may occur. ERIN PECK PA-C 12/01/2023 2:08 PM Primary care physician: YASMIN SEGURA MD Extended Emergency Contact Information Primary Emergency Contact: HONORIO MAC Mobile Relation: Daughter Secondary Emergency Contact: Ana Coronel [facility] Mobile Relation: Mother Cosigned by Troy Huertas MD at 12/01/2023 3:19 PM CDT * Yasmin Zuniga, PharmD, [facility] - 12/01/2023 6:43 AM CDT Vancomycin Pharmacy [...] has not been ordered at this time. Electronically signed by Yasmin Zuniga PharmD, [facility] at 12/01/2023 6:43 AM CDT Electronically signed by Yasmin Zuniga PharmD, [facility] at 12/01/2023 1:16 PM CDT * Jasper Coronel RN - 12/01/2023 4:56 [...] and Symptoms Outcome: Progressing * Shana Martinez LOG SORTING SUPERVISOR - 11/30/2023 3:08 PM CDT 11/29 Continues on IV antibiotics, possible ID consult cw * Shana Martinez LOG SORTING SUPERVISOR - 11/30/2023 3:07 PM CDT IV antibiotics, possible ID consult 11/30/23 [id number] Interdisciplinary Group Conference Team Members Present Physician;Case/Care [...] for Documentation Clarification Lena Ellis ; VISIT [id number] Query Response Sent: 11/30/23 13:06 CDT From: [...] UTI, pyelonephritis Follows closely with ID at [facility]; see chart review Previous urine Cx 11/20 [...] as of 11/30/2023 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 All plans discussed with patient/patient's family/floral designer salesperson. They are agreeable with plan and voiced understanding. This note was dictated with Figure 8 Surgical medical dictation software; misspellings, punctuation errors, omitted words or dictation variances may occur. ARLENE CONLEY PA-C 11/30/2023 10:41 AM Primary care physician: YASMIN SEGURA MD Extended Emergency Contact Information Primary Emergency Contact: HONORIO MAC Mobile Relation: Daughter Secondary Emergency Contact: Ana oCronel [facility] Mobile Relation: Mother Cosigned by [...] for distances.) Behavior Oriented;Cooperative;Confused Communication Talks;Understands speaking;Understands Kazakh Current Services Being Provided Outpt therapy (None.) Home Health Other (Comment) (Used [facility] in past. OK to use again.) [...] TBD.) Adequate Resources Available Adequate Resources Yes [place] Only - Criminal Background check [place] only - Is patient going to fci? No NCM performed bedside interview, verified patient's [...] communicate without deficits. Home Health: None. Used [facility] in past. OK to use again. Occupation: Unemployed. Pharmacy: [facility]. Financial Concerns: No financial concerns reported PCP/Insurance Plan: Yasmin Segura II, MD/[facility]. 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 All plans discussed with patient/patient's family/floral designer salesperson. They are agreeable with plan and voiced understanding. This note was dictated with Figure 8 Surgical medical dictation software; misspellings, punctuation errors, omitted words or dictation variances may occur. ARLENE CONLEY PA-C 11/29/2023 10:42 AM Primary care physician: YASMIN SEGURA MD Extended Emergency Contact Information Primary Emergency Contact: HONORIO MAC Mobile Relation: Daughter Secondary Emergency Contact: Ana Coronel [facility] Mobile Relation: Mother Cosigned by [...] of antibiotics. She saw infectious disease at [facility] earlier this month. Aurine culture was obtained [...] 09/26/2023) 3 each 0 Glucose Blood (ACCU-CHEK CIERRA PLUS) test strip [...] Arthritis Charcot foot due to diabetes mellitus ([facility]) LEFT FOOT Constipation COVID-19 Diabetes mellitus ([facility]) Diabetic neuropathy ([facility]) Gastric ulcer High cholesterol Hypertension [...] min Stress: No Stress Concern Present (03/06/2023) [facility]ational Health - Occupational Stress Questionnaire [...] 6 ) 90.3 kg (199 lb) Intake/Output :[id number]@ Constitutional: Well developed, Well nourished, ill-appearing. Breathing [...] input(s): PH , PCO2 , PO2 , [id number] , BICARBWB , BASEDEFICIT , BASEEXCESS in [...] note was dictated with the use of [employer] dictation software and was proofread to [...] CARRERA. See flowsheet for details of measurements. patient services technician was maintained throughout procedure. documented in this encounter Consult Notes * Sandra Alonzo MD - 12/01/2023 4:55 PM CDTSummary: ID Consult Images from the original note were not included. Patient was seen today utilizing telemedicine services. I introduced and identified myself, received verbal consent from the patient to proceed with this video visit and made the patient aware that the same confidentiality and fire information officer practices apply. Patient Location: [facility] 5TH FLOOR [facility] [address] Dept: [phone] Provider Location: Other location: Office Caregivers in attendance: Patient's primary RN Time spent with patient in minutes : 15 mins [place] [facility] Infectious Disease Consult Note Subjective REASON [...] multiple courses of abx. Saw ID at [facility] earlier this month. Ur cx had E. [...] Arthritis Charcot foot due to diabetes mellitus ([facility]) LEFT FOOT Constipation COVID-19 Diabetes mellitus ([facility]) Diabetic neuropathy (CMS/HCC HHS/HCC) Gastric [...] min Stress: No Stress Concern Present (11/29/2023) [facility] - Occupational Stress Questionnaire Feeling of Stress : Not at all Social Connections: Moderately Isolated (11/29/2023) Social Connection and Isolation Panel [NHANES] Frequency of Communication with Friends and Family: More than three times a week Frequency of Social Gatherings with Friends and Family: More than three times a week Attends Islam Services: Never Active Member of Clubs or [...] input(s): PH , PCO2 , PO2 , [id number] , BICARBWB , BASEDEFICIT , BASEEXCESS in [...] Component Value Units Date/Time CULTURE BACTERIA, BLOOD [[id number]] Collected: 11/29/23 0228 Order Status: Completed Lab Status: Preliminary result Updated: 12/01/23 1457 Specimen: BLOOD SPEC DESCRIPTION BLOOD SPECIAL REQUESTS NO SPECIAL REQUEST CULTURE RESULT NO GROWTH 2 DAYS URINE BACTERIA CULTURE [[id number]] (Abnormal) (Susceptibility) Collected: 11/28/235 Order Status: Completed [...] on 07/20/2023 at our surgery center in [place] where she was found to have no [...] Arthritis Charcot foot due to diabetes mellitus ([facility]) LEFT FOOT Constipation COVID-19 Diabetes mellitus ([facility]) Diabetic neuropathy ([facility]) Gastric ulcer High cholesterol Hypertension [...] to follow-up for her urologic care in [place], will arrange for follow-up in either [place] or [facility]. Follow-up info placed in EMR. - Remainder of management per primary - Urology will follow peripherally at this time, please contact if questions/concerns STUART MARY MD 11/29/2023 ---- Stuart Mary MD [facility] [place] Office and after-hours exchange phone number: [phone] documented in this encounter Nursing Notes * Selina Ortega RN - 11/30/2023 5:23 PM CDT This RN performed timeout with Shayy CARRERA from the PICC team.Consent signed and in the chart and timeout checklist placed on tax manager's desk. The patient is able to [...] not get labs and would send another metalsmith apprentice. 1524: two metalsmith apprentice, this RN, and another RN attempted lab [...] the right side of her abdomen. On [facility]- Urine Culture 11-21-23 Organism Antibiotic [...] ??? Charcot foot due to diabetes mellitus ([facility]/HCC [facility]) LEFT FOOT ??? Constipation ??? COVID-19 ??? Diabetes mellitus (CMS/HCC HHS/HCC) ??? Diabetic neuropathy ([facility]/HCC HHS/HCC) ??? Gastric ulcer ??? High cholesterol [...] ABD+PEL W CON Final Result by User, [id number] (11/28 873) [address] [address] INDICATION: Right flank and abdominal pain, chronic [...] st Contact Info) Description 03/14/2024 11:45 AM POWDER BLENDER Office Visit [facility] [address] Marvin Mckeon MD [address] [facility] [address] [place], [place] [address] 03/20/2024 11:30 AM POWDER BLENDER Office Visit [facility] [place] [address] [place] [phone] Yasmin Segura II, MD [address] [place], [place] [address] documented as of this encounter Goals Goal [...] W/DIFF AUTOMATED (12/02/2023 5:28 AM CDT) Pathologist [facility] WBC 8.65 4.5 - 11.0 x10'3/uL 12/02/2023 5:[address] [facility] RBC 3.60(L) 4.20 - 5.40 x10'6/uL 12/02/2023 5:[address] [facility] HGB 10.8(L) 12.0 - 16.0 G/DL 12/02/2023 5:[address] [facility] HCT 32.3(L) 38.0 - 48.0 % 12/02/2023 5:[address] [facility] MCV 89.7 81.0 - 99.0 FL 12/02/2023 5:[address] [facility] MCH 30.0 27.0 - 31.0 PG 12/02/2023 5:[address] [facility] MCHC 33.4 32.0 - 36.0 G/DL 12/02/2023 5:[address] [facility] RDW 12.8 11.5 - 14.5 % 12/02/2023 5:[address] [facility] PLT 250 130 - 400 x10'3/uL 12/02/2023 5:[address] [facility] MPV 11.3 9.3 - 12.2 FL 12/02/2023 5:[address] [facility] DIFFERENTIAL TYPE AUTOMATED DIFFERENTIAL 12/02/2023 5:[address] [facility] NEUTROPHILS % 60.9 % 12/02/2023 5:[address] [facility] LYMPHOCYTES % 30.4 % 12/02/2023 5:[address] [facility] MONOCYTES % 5.7 % 12/02/2023 5:[address] [facility] EOSINOPHILS 2.3 % 12/02/2023 5:[address] [facility] BASOPHILS 0.5 % 12/02/2023 5:[address] [facility] IMMATURE GRANS % 0.2 % 12/02/19 5:[address] [facility] ABS. NEUTROPHILS 5.27 1.80 - 7.70 x10'3/uL 12/02/2023 5:[address] [facility] ABS. LYMPHOCYTES 2.63 1.00 - 4.80 x10'3/uL 12/02/2023 5:[address] [facility] ABS. MONOCYTES 0.49 0.24 - 0.86 x10'3/uL 12/02/2023 5:[address] [facility] ABS. EOSINOPHILS 0.20 0.04 - 0.36 x10'3/uL 12/02/2023 5:[address] [facility] ABS. BASOPHILS 0.04 0.01 - 0.08 x10'3/uL 12/02/2023 5:[address] [facility] ABS. IMMATURE GRANULOCYTES 0.02 0.00 - 0.49 x10'3/uL 12/02/2023 5:[address] [facility] 12/02/2023 5:28 AM CDT Arlene Conley PA-C LABORATORY Final Result [facility] [address] [place] [address], * (ABNORMAL) BASIC METABOLIC PANEL (12/02/2023 5:28 AM CDT) [facility] GLUCOSE 106(H) 70 - 99 MG/DL 12/02/2023 5:[address] [facility] BUN 15 7 - 18 MG/DL 12/02/2023 5:[address] [facility] CREATININE S/P/B 1.03(H) 0.55 - 1.02 MG/DL 12/02/2023 5:[address] [facility] SODIUM S/P/B 140 136 - 145 MMOL/L 12/02/2023 5:[address] [facility] POTASSIUM S/P/B 3.7 3.5 - 5.1 MMOL/L 12/02/2023 5:[address] [facility] CHLORIDE S/P/B 107 97 - 115 MMOL/L 12/02/2023 5:[address] [facility] CO2 28.5 21 - 32 MMOL/L 12/02/2023 5:[address] [facility] CALCIUM S/P/B 9.4 8.5 - 10.1 MG/DL 12/02/2023 5:[address] [facility] ANION GAP 4.5 2 - 10 MMOL/L 12/02/2023 5:[address] [facility] BUN CREATININE RATIO 14.6 6 - 26 12/02/2023 5:[address] [facility] GFR ESTIMATE 65(L) >90 ML/MIN/1.7 3 M2 12/02/2023 5:[address] [facility] Comment: NOTE: eGFR is not calculated for patients <18 years of age or gender unknown. This is an estimated GFR calculation using the new CKD EPI creatinine equation without race and so does not require a correction factor for race. This estimated GFR should not be used for calculating drug doses. 12/02/2023 5:28 AM CDT Arlene Conley PA-C LABORATORY Final Result Performing Organization Address City/[facility]/ZIP Co de Phone Number [facility] [address] [place] [address], * (ABNORMAL) POCT glucose (12/01/2023 8:08 PM CDT) GLUCOSE POC 238(H) 70 - 99 mg/dL 12/01/2023 8:[address] [facility] 12/01/2023 8:08 PM CDT Erin Alvarengac PA-C POCT ORDERABLES - DEVICE Final Result Performing Organization Address City/[facility] Co de Phone Number [facility] [address] [place] [address], [place] [phone] * (ABNORMAL) POCT glucose (12/01/2023 5:22 PM CDT) GLUCOSE POC 178(H) 70 - 99 mg/dL 12/01/2023 5:[address] [facility] 12/01/2023 5:22 PM CDT Erin Redzic PA-C POCT ORDERABLES - DEVICE Final Result [facility] [address] [place] [address], * (ABNORMAL) POCT glucose (12/01/2023 11:28 AM CDT) GLUCOSE POC 122(H) 70 - 99 mg/dL 12/01/2023 11:[address] [facility] 12/01/2023 11:2 8 AM CDT Erin Redzic PA-C POCT ORDERABLES - DEVICE Final Result [facility] [address] [place] [address], * (ABNORMAL) POCT glucose (12/01/2023 8:16 AM CDT) GLUCOSE POC 170(H) 70 - 99 mg/dL 12/01/2023 8:[address] [facility] 12/01/2023 8:16 AM CDT Erin Redzic PA-C POCT ORDERABLES - DEVICE Final Result [facility] [address] [place] [address], * Vancomycin Random Level (12/01/2023 5:43 AM CDT) VANCOMYCIN RANDOM 6.2 MCG/ML 12/01/2023 6:[address] [facility] Comment:NO THERAPEUTIC RANGE AVAILABLE VANCOMYCIN UNKNOWN LAST DOSE 12/01/2023 10:[address] [facility] 12/01/2023 5:43 AM CDT Arlene Conley PA-C LABORATORY Final Result [facility] [address] [place] [address], [place] [phone] * (ABNORMAL) CBC W/DIFF AUTOMATED (12/01/2023 5:43 AM CDT) Pathologist [facility] WBC 7.83 4.5 - 11.0 x10'3/uL 12/01/2023 5:[address] [facility] RBC 3.63(L) 4.20 - 5.40 x10'6/uL 12/01/2023 5:[address] [facility] HGB 10.8(L) 12.0 - 16.0 G/DL 12/01/2023 5:[address] [facility] HCT 32.4(L) 38.0 - 48.0 % 12/01/2023 5:[address] [facility] MCV 89.3 81.0 - 99.0 FL 12/01/2023 5:[address] [facility] MCH 29.8 27.0 - 31.0 PG 12/01/2023 5:[address] [facility] MCHC 33.3 32.0 - 36.0 G/DL 12/01/2023 5:[address] [facility] RDW 12.8 11.5 - 14.5 % 12/01/2023 5:[address] [facility] PLT 248 130 - 400 x10'3/uL 12/01/2023 5:[address] [facility] MPV 11.4 9.3 - 12.2 FL 12/01/2023 5:[address] [facility] DIFFERENTIAL TYPE AUTOMATED DIFFERENTIAL 12/01/2023 5:[address] [facility] NEUTROPHILS % 56.7 % 12/01/2023 5:[address] [facility] LYMPHOCYTES % 35.2 % 12/01/2023 5:[address] [facility] MONOCYTES % 5.7 % 12/01/2023 5:[address] [facility] EOSINOPHILS 1.5 % 12/01/2023 5:[address] [facility] BASOPHILS 0.6 % 12/01/2023 5:[address] [facility] IMMATURE GRANS % 0.3 % 12/01/19 5:[address] [facility] ABS. NEUTROPHILS 4.43 1.80 - 7.70 x10'3/uL 12/01/2023 5:[address] [facility] ABS. LYMPHOCYTES 2.76 1.00 - 4.80 x10'3/uL 12/01/2023 5:[address] [facility] ABS. MONOCYTES 0.45 0.24 - 0.86 x10'3/uL 12/01/2023 5:[address] [facility] ABS. EOSINOPHILS 0.12 0.04 - 0.36 x10'3/uL 12/01/2023 5:[address] [facility] ABS. BASOPHILS 0.05 0.01 - 0.08 x10'3/uL 12/01/2023 5:[address] [facility] ABS. IMMATURE GRANULOCYTES 0.02 0.00 - 0.49 x10'3/uL 12/01/2023 5:[address] [facility] 12/01/2023 5:43 AM CDT Arlene Conley PA-C LABORATORY Final Result [facility] [address] [place] [address], * (ABNORMAL) BASIC METABOLIC PANEL (12/01/2023 5:43 AM CDT) GLUCOSE 173(H) 70 - 99 MG/DL 12/01/2023 6:[address] [facility] BUN 15 7 - 18 MG/DL 12/01/2023 6:[address] [facility] CREATININE S/P/B 0.90 0.55 - 1.02 MG/DL 12/01/2023 6:[address] [facility] SODIUM S/P/B 139 136 - 145 MMOL/L 12/01/2023 6:[address] [facility] POTASSIUM S/P/B 3.8 3.5 - 5.1 MMOL/L 12/01/2023 6:[address] [facility] CHLORIDE S/P/B 107 97 - 115 MMOL/L 12/01/2023 6:[address] [facility] CO2 29.3 21 - 32 MMOL/L 12/01/2023 6:[address] [facility] CALCIUM S/P/B 8.7 8.5 - 10.1 MG/DL 12/01/2023 6:[address] [facility] ANION GAP 2.7 2 - 10 MMOL/L 12/01/2023 6:[address] [facility] BUN CREATININE RATIO 16.7 6 - 26 12/01/2023 6:[address] [facility] GFR ESTIMATE 77(L) >90 ML/MIN/1.7 3 M2 12/01/2023 6:[address] [facility] Comment: NOTE: eGFR is [...] PA-C LABORATORY Final Result Performing Organization Address City/[facility]/ZIP Co de Phone Number [facility] [address] [place] [address], [place] [phone] * (ABNORMAL) POCT glucose (11/30/2023 7:45 PM CDT) GLUCOSE POC 219(H) 70 - 99 mg/dL 11/30/2023 7:[address] [facility] 11/30/2023 7:45 PM CDT Arlene Conley PA-C POCT ORDERABLES - DEVICE Final Result Performing Organization Address [facility] Co de Phone Number [facility] [address] [place] [address], [place] [phone] * (ABNORMAL) CBC W/DIFF AUTOMATED (11/30/2023 6:10 PM CDT) WBC 8.83 4.5 - 11.0 x10'3/uL 11/30/2023 6:[address] [facility] RBC 3.68(L) 4.20 - 5.40 x10'6/uL 11/30/2023 6:[address] [facility] HGB 11.1(L) 12.0 - 16.0 G/DL 11/30/2023 6:[address] [facility] HCT 32.8(L) 38.0 - 48.0 % 11/30/2023 6:[address] [facility] MCV 89.1 81.0 - 99.0 FL 11/30/2023 6:[address] [facility] MCH 30.2 27.0 - 31.0 PG 11/30/2023 6:[address] [facility] MCHC 33.8 32.0 - 36.0 G/DL 11/30/2023 6:[address] [facility] RDW 12.9 11.5 - 14.5 % 11/30/2023 6:43 PM CDT [facility] PLT 254 130 - 400 x10'3/uL 11/30/2023 6:[address] [facility] MPV 11.1 9.3 - 12.2 FL 11/30/2023 6:[address] [facility] DIFFERENTIAL TYPE AUTOMATED DIFFERENTIAL 11/30/2023 6:[address] [facility] NEUTROPHILS % 59.9 % 11/30/2023 6:[address] [facility] LYMPHOCYTES % 32.3 % 11/30/2023 6:[address] [facility] MONOCYTES % 5.5 % 11/30/2023 6:[address] [facility] EOSINOPHILS 1.4 % 11/30/2023 6:[address] [facility] BASOPHILS 0.6 % 11/30/2023 6:[address] [facility] IMMATURE GRANS % 0.3 % 11/30/19 6:[address] [facility] ABS. NEUTROPHILS 5.29 1.80 - 7.70 x10'3/uL 11/30/2023 6:[address] [facility] ABS. LYMPHOCYTES 2.85 1.00 - 4.80 x10'3/uL 11/30/2023 6:[address] [facility] ABS. MONOCYTES 0.49 0.24 - 0.86 x10'3/uL 11/30/2023 6:[address] [facility] ABS. EOSINOPHILS 0.12 0.04 - 0.36 x10'3/uL 11/30/2023 6:[address] [facility] ABS. BASOPHILS 0.05 0.01 - 0.08 x10'3/uL 11/30/2023 6:[address] [facility] ABS. IMMATURE GRANULOCYTES 0.03 0.00 - 0.49 x10'3/uL 11/30/2023 6:[address] [facility] 11/30/2023 6:10 PM CDT Arlene Conley PA-C LABORATORY Final Result [facility] [address] [place] [address], * (ABNORMAL) BASIC METABOLIC PANEL (11/30/2023 6:10 PM CDT) Pathologist [facility] GLUCOSE 242(H) 70 - 99 MG/DL 11/30/2023 6:[address] [facility] BUN 15 7 - 18 MG/DL 11/30/2023 6:[address] [facility] CREATININE S/P/B 1.13(H) 0.55 - 1.02 MG/DL 11/30/2023 6:[address] [facility] SODIUM S/P/B 138 136 - 145 MMOL/L 11/30/2023 6:[address] [facility] POTASSIUM S/P/B 3.8 3.5 - 5.1 MMOL/L 11/30/2023 6:[address] [facility] CHLORIDE S/P/B 106 97 - 115 MMOL/L 11/30/2023 6:[address] [facility] CO2 27.5 21 - 32 MMOL/L 11/30/2023 6:[address] [facility] CALCIUM S/P/B 8.8 8.5 - 10.1 MG/DL 11/30/2023 6:[address] [facility] ANION GAP 4.5 2 - 10 MMOL/L 11/30/2023 6:[address] [facility] BUN CREATININE RATIO 13.3 6 - 26 11/30/2023 6:[address] [facility] GFR ESTIMATE 59(L) >90 ML/MIN/1.7 3 M2 11/30/2023 6:[address] [facility] Comment: NOTE: eGFR is [...] us Arlene Conley PA-C LABORATORY Final Result [facility] [address] [place] [address], * (ABNORMAL) POCT glucose (11/30/2023 3:47 PM CDT) [facility] GLUCOSE POC 205(H) 70 - 99 mg/dL 11/30/2023 3:[address] [facility] 11/30/2023 3:47 PM CDT Arlene MARIE-C POCT ORDERABLES - DEVICE Final Result Performing Organization Address City/[facility] Co de Phone Number [facility] [address] [place] [address], [place] [phone] * (ABNORMAL) POCT glucose (11/30/2023 12:05 PM CDT) GLUCOSE POC 245(H) 70 - 99 mg/dL 11/30/2023 12:[address] [facility] 11/30/2023 12:0 5 PM CDT Arlene MARIE-C POCT ORDERABLES - DEVICE Final Result Performing Organization Address [facility] Co de Phone Number [facility] [address] [place] [address], [place] [phone] * (ABNORMAL) POCT glucose (11/30/2023 6:22 AM CDT) GLUCOSE POC 168(H) 70 - 99 mg/dL 11/30/2023 6:[address] [facility] 11/30/2023 6:22 AM CDT Arlene MARIE-Angelique POCT ORDERABLES - DEVICE Final Result Performing Organization Address City/[facility] Co de Phone Number [facility] [address] [place] [address], [place] [phone] * (ABNORMAL) POCT glucose (11/29/2023 7:51 PM CDT) GLUCOSE POC 209(H) 70 - 99 mg/dL 11/29/2023 7:[address] [facility] 11/29/2023 7:51 PM CDT Arlene Mitchell Vanesa PA-C POCT ORDERABLES - DEVICE Final Result [facility] [address] [place] [address], [place] [phone] * (ABNORMAL) POCT glucose (11/29/2023 4:53 PM CDT) GLUCOSE POC 158(H) 70 - 99 mg/dL 11/29/2023 7:[address] [facility] 11/29/2023 4:53 PM CDT Arlene Slateri PA-C POCT ORDERABLES - DEVICE Final Result Performing Organization Address City/[facility]/ZIP Co de Phone Number [facility] [address] [place] [address], [place] [phone] * (ABNORMAL) POCT glucose (11/29/2023 11:48 AM CDT) GLUCOSE POC 112(H) 70 - 99 mg/dL 11/29/2023 11:[address] [facility] 11/29/2023 11:4 8 AM CDT Arlene Mitchell Vanesa PA-C POCT ORDERABLES - DEVICE Final Result [facility] [address] [place] [address], [place] [phone] * (ABNORMAL) POCT glucose (11/29/2023 6:46 AM CDT) GLUCOSE POC 120(H) 70 - 99 mg/dL 11/29/2023 6:[address] [facility] 11/29/2023 6:46 AM CDT Arlene Conley PA-C POCT ORDERABLES - DEVICE Final Result [facility] [address] [place] [address], [place] [phone] * (ABNORMAL) POCT glucose (11/29/2023 3:17 AM CDT) GLUCOSE POC 107(H) 70 - 99 mg/dL 11/29/2023 3:[address] [facility] 11/29/2023 3:17 AM CDT Janneth MARIE POCT ORDERABLES - DEVICE Katheryn l Result [facility] [address] [place] [address], [place] [phone] * CULTURE BACTERIA, BLOOD (11/29/2023 2:28 AM CDT) SPEC DESCRIPTION BLOOD 11/29/2023 1:[address] [facility] SPECIAL REQUESTS NO SPECIAL REQUEST 11/29/2023 1:[address] [facility] CULTURE RESULT NO GROWTH 5 DAYS 12/04/2023 9:[address] [facility] BLOOD SPECIMEN OBTAINED FOR BLOOD CULTURE / Unknown 11/29/2023 2:28 AM CDT 11/29/2023 2:33 AM CDT Janneth MARIE MICROBIOLOGY - GENERAL ORDERA BLES Final Result Performing Organization Address City/[facility]/ZIP Co de Phone Number [facility] [address] [place] [address], [place] [phone] * LACTIC ACID W REFLEX (SEPSIS) (11/29/2023 1:54 AM CDT) LACTIC ACID VENOUS 1.1 0.4 - 2.0 MMOL/L 11/29/2023 2:[address] [facility] 11/29/2023 1:54 AM CDT Janneth MARIE LABORATORY Final Result Performing Organization Address [facility] de Phone Number [facility] [address] [place] [address], [place] [phone] * CT ABD+PEL W CON (11/29/2023 1:33 [...] AM Narrative 11/29/2023 1:54 AM CDT [facility] [address] INDICATION: Right flank and abdominal pain, chronic [...] Procedure Note Jeromy Massey MD - 11/29/[address] [address] INDICATION: Right flank and abdominal pain, chronic [...] - 75 UNITS/L 11/29/2023 12:53 AM CDT [facility] 11/29/2023 12:1 3 AM CDT Janneth MARIE LABORATORY Final Result [facility] [address] [place] [address], [place] [phone] * (ABNORMAL) COMPREHENSIVE METABOLIC PANEL (11/29/2023 12:13 AM CDT) [facility] GLUCOSE 144(H) 70 - 99 MG/DL 11/29/2023 12:[address] [facility] BUN 17 7 - 18 MG/DL 11/29/2023 12:[address] [facility] CREATININE S/P/B 1.18(H) 0.55 - 1.02 MG/DL 11/29/2023 12:[address] [facility] SODIUM S/P/B 140 136 - 145 MMOL/L 11/29/2023 12:[address] [facility] POTASSIUM S/P/B 3.7 3.5 - 5.1 MMOL/L 11/29/2023 12:[address] [facility] CHLORIDE S/P/B 105 97 - 115 MMOL/L 11/29/2023 12:[address] [facility] CO2 29.7 21 - 32 MMOL/L 11/29/2023 12:[address] [facility] CALCIUM S/P/B 9.4 8.5 - 10.1 MG/DL 11/29/2023 12:[address] [facility] BILIRUBIN TOTAL S/P/B 0.3 0.2 - 1.2 MG/DL 11/29/2023 12:[address] [facility] Comment: THIS ASSAY IS NOT RECOMMENDED FOR PATIENTS UNDERGOING TREATMENT WITH ELTROMBOPAG DUE TO THE POTENTIAL FOR FALSELY ELEVATED RESULTS. TOTAL PROTEIN S/P/B 9.3(H) 6.4 - 8.2 G/DL 11/29/2023 12:[address] [facility] ALBUMIN S/P/B 3.6 3.4 - 5.0 G/DL 11/29/2023 12:[address] [facility] AST 20 15 - 37 U/L 11/29/2023 12:[address] [facility] ALT 24 14 - 55 U/L 11/29/2023 12:[address] [facility] ALKALINE PHOSPHATASE S/P/B 163(H) 50 - 136 U/L 11/29/2023 12:[address] [facility] ANION GAP 5.3 2 - 10 MMOL/L 11/29/2023 12:[address] [facility] BUN CREATININE RATIO 14.4 6 - 26 11/29/2023 12:[address] [facility] A/G RATIO 0.6(L) 1.0 - 2.0 RATIO 11/29/2023 12:[address] [facility] GFR ESTIMATE 56(L) >90 ML/MIN/1.7 3 M2 11/29/2023 12:[address] [facility] Comment: NOTE: eGFR is [...] us Janneth MARIE LABORATORY Final Result [facility] [address] [place] [address], * CBC W/DIFF AUTOMATED (11/29/2023 12:13 AM CDT) [facility] WBC 9.99 4.5 - 11.0 x10'3/uL 11/29/2023 12:[address] [facility] RBC 4.30 4.20 - 5.40 x10'6/uL 11/29/2023 12:[address] [facility] HGB 13.0 12.0 - 16.0 G/DL 11/29/2023 12:[address] [facility] HCT 38.5 38.0 - 48.0 % 11/29/2023 12:[address] [facility] MCV 89.5 81.0 - 99.0 FL 11/29/2023 12:[address] [facility] MCH 30.2 27.0 - 31.0 PG 11/29/2023 12:[address] [facility] MCHC 33.8 32.0 - 36.0 G/DL 11/29/2023 12:[address] [facility] RDW 13.2 11.5 - 14.5 % 11/29/2023 12:[address] [facility] PLT 290 130 - 400 x10'3/uL 11/29/2023 12:[address] [facility] MPV 11.6 9.3 - 12.2 FL 11/29/2023 12:[address] [facility] DIFFERENTIAL TYPE AUTOMATED DIFFERENTIAL 11/29/2023 12:[address] [facility] NEUTROPHILS % 55.2 % 11/29/2023 12:[address] [facility] LYMPHOCYTES % 38.3 % 11/29/2023 12:[address] [facility] MONOCYTES % 3.8 % 11/29/2023 12:[address] [facility] EOSINOPHILS 1.7 % 11/29/2023 12:[address] [facility] BASOPHILS 0.7 % 11/29/2023 12:[address] [facility] IMMATURE GRANS % 0.3 % 11/29/19 12:[address] [facility] ABS. NEUTROPHILS 5.51 1.80 - 7.70 x10'3/uL 11/29/2023 12:[address] [facility] ABS. LYMPHOCYTES 3.83 1.00 - 4.80 x10'3/uL 11/29/2023 12:[address] [facility] ABS. MONOCYTES 0.38 0.24 - 0.86 x10'3/uL 11/29/2023 12:[address] [facility] ABS. EOSINOPHILS 0.17 0.04 - 0.36 x10'3/uL 11/29/2023 12:[address] [facility] ABS. BASOPHILS 0.07 0.01 - 0.08 x10'3/uL 11/29/2023 12:[address] [facility] ABS. IMMATURE GRANULOCYTES 0.03 0.00 - 0.49 x10'3/uL 11/29/2023 12:[address] [facility] 11/29/2023 12:1 3 AM CDT us Janneth MARIE LABORATORY Final Result [facility] [address] [place] [address], [place] [phone] * (ABNORMAL) URINE BACTERIA CULTURE (11/28/2023 10:35 PM CDT) SPEC DESCRIPTION URINE CLEAN CATCH 11/28/2023 10:[address] [facility] SPECIAL REQUESTS NO SPECIAL REQUEST 11/28/2023 10:[address] [facility] CULTURE RESULT 50,000-100,000 COL/ML ENTEROCOCCUS SPECIES (A) 12/01/2023 8:[address] [facility] CULTURE RESULT POLYMICROBIAL GROWTH CONSISTENT WITH NORMAL GENITAL AIDEN. ?? SUSCEPTIBILITIES NOT ROUTINELY PERFORMED. 12/01/2023 8:[address] [facility] URINE SPECIMEN OBTAINED BY [...] - GENERAL ORDERA BLES Final Result [facility] [address] [place] [address], [place] [phone] * (ABNORMAL) URINALYSIS (11/28/2023 10:35 PM CDT) SPECIMEN TYPE URINE CLEAN CATCH 11/28/2023 10:[address] [facility] COLOR (U) YELLOW 11/29/2023 12:[address] [facility] TRANSPARENCY TURBID 11/29/2023 12:[address] [facility] SPECIFIC GRAVITY (U) 1.014 1.001 - 1.030 11/29/2023 12:[address] [facility] U PH 6.0 5.0 - 9.0 11/29/2023 12:[address] [facility] LEUKOCYTES (U) 500(A) NEGATIVE 11/29/2023 12:[address] [facility] NITRITES NEGATIVE NEGATIVE 11/29/2023 12:[address] [facility] PROTEIN RANDOM (U) 200(H) <30 MG/DL 11/29/2023 12:[address] [facility] GLUCOSE (U) 50(A) NORMAL MG/DL 11/29/2023 12:[address] [facility] KETONES MG/DL (U) NEGATIVE NEGATIVE MG/DL 11/29/2023 12:[address] [facility] UROBILINOGEN NORMAL NORMAL MG/DL 11/29/2023 12:[address] [facility] BILIRUBIN (U) NEGATIVE NEGATIVE MG/DL 11/29/2023 12:[address] [facility] BLOOD (U) 1+(A) NEGATIVE 11/29/2023 12:[address] [facility] WBC/HPF >100(H) <6 /HPF 11/29/2023 12:[address] [facility] RBC/HPF 10(H) <6 /HPF 11/29/2023 12:[address] [facility] BACTERIA (U) RARE(A) NONE /HPF 11/29/2023 12:[address] [facility] SQUAMOUS EPITHELIALS MANY /HPF 11/29/2023 12:[address] [facility] URINE SPECIMEN OBTAINED BY CLEAN CATCH PROCEDURE / Unknown 11/28/2023 10:35 PM CDT us Janneth MARIE URINE ORDERABLES Final Result [facility] [address] [place] [address], [place] [phone] documented in this encounter Visit Diagnoses Diagnosis [...] evening, First dose (after last modification) on [facility] 12/01/23 at 2100, Until Discontinued Given 12/01/2023 8:36 PM CDT 60 Units Left Lower Abdomen insulin aspart protamine-insulin aspart (NOVOLOG 70/30) injection 70 Units 70 Units, Subcutaneous, Every morning, First dose (after last modification) on [facility] 12/01/23 at 0700, Until Discontinued Given 12/02/2023 [...] Starting on Viky 11/29/23 at 0222, Until Brogue 12/02/23 at 1247, If patient is verbally [...] Starting on [facility] 11/29/23 at 0222, Until Brogue 12/02/23 at 1247 glucagon injection 1 mg 1 mg, Intramuscular, Once as needed, Other, Low blood sugar, 1 dose, Starting on Viky 11/29/23 at 0222, Until Brogue 12/02/23 at 1247, If patient is verbally UNresponsive and no IV access with blood glucose less than 70 mg/dL. Do NOT repeat administration. glucose oral gel 32-64 mL 32-64 mL (15-30 g of dextrose), Oral, As needed, Low blood sugar, Starting on [facility] 11/29/23 at 0222, Until Brogue 12/02/23 at 1247, If patient is verbally [...] threw in sharps container before scanned, charge lpn notified)2025 (Given - Provider: Jasper Coronel RN [...] evening, First dose (after last modification) on [facility] 12/01/23 at 2100, Until Discontinued Group 3: [...] Starting on Viky 11/29/23 at 0214, Until Brogue 12/02/23 at 1247, Vancomycin Placeholder Only: Do NOT document administrations on this placeholder.(Use medication on APR to document administrations or contact pharmacy if medication order not entered.) documented in this encounter Additional Health Concerns Assessment Noted Time PHQ-9 Depression Total Score: 0 03/08/19 22 9:30 AM POWDER BLENDER documented as of this encounter Care Teams Manager Bakery Relationship Specialty Start Date End Date Yasmin Segura II, MD [address] [place] [address] PCP - General FAMILY PRACTICE 03/09/21 [place] [address] [place] [address] PODIATRY/SURGERY 05/05/22 documented as of this encounter
--- OUTSIDE RECORDS SUMMARY | 2024-03-03 01:18 | XMS_ITS | Encounter Summary ---
Author Organization [facility] Address [address] [place] [address]. [place], [place] [id number] [place] [address] Care Team Providers Care Petroleum Transport Driver Name Role Phone Colton SILVEIRA MD, Abiodun Rushing Primary Care Provider Victoriano Langston MD Unavailable [phone] Encounter Details Date Type Department Care Team (Latest Contact Info) Description 09/26/2023 Travel Social History Tobacco Use Types Packs/Day Years Used Date Smoking Tobacco: Never Smokeless Tobacco: Never Alcohol Use Standard Drinks/Week Comments Not Currently 0 (1 standard drink = 0.6 oz pur e alcohol) few times per year [facility] Utilities Answer Date Recorded In the past 12 months has e 3225 films, gas, oil, or water [employer] threatened to shut off services in your [...] Recorded Patient Health Questionnaire-2 Score 1 03/05/2023 [facility] - [...] in a penitentiary (including now)? No 03/06/2023 Comments No Sex [...] st Contact Info) Description 03/14/2024 11:45 AM LIVESTOCK SPECULATOR Office Visit [facility] [address] Marvin Mckeon MD [facility] [address] [place] [address] 03/20/2024 11:30 AM LIVESTOCK SPECULATOR Office Visit [facility] - [place] [address] [place] [phone] Abiodun Segura II, MD [address] [place] [address] documented as of this encounter Goals Goal Patient Goal Type Associated Problems Recent Progress Patient-Stated? Author Family - family caregiver with be involved in care transitions and discharge planning Lifestyle Natty Angeles, RN documented as of this encounter Visit Diagnoses Not on filedocumented in this encounter Additional Health Concerns Assessment Noted Time PHQ-9 Depression Total Score: 0 03/08/19 9:30 AM LIVESTOCK SPECULATOR documented as of this encounter Care Teams Petroleum Transport Driver Relationship Specialty Start Date End Date Abiodun Segura II, MD [address] [place] [address] PCP - General FAMILY PRACTICE 03/09/21 [place] [address] [place] [address] PODIATRY/SURGERY 05/05/22 documented as of this encounter
--- OUTSIDE RECORDS SUMMARY | 2024-03-03 01:18 | XMS_ITS | Encounter Summary ---
Author Organization [facility] Address [address] [place] [address]. [place] [address] [place] [address] Care Team Providers Care District Captain Name Role Phone Colton SILVEIRA MD, Yasmin Rushing Primary Care Provider Victoriano Langston MD Unavailable [phone] Reason for Visit * Reason Comments Hypertension Follow Up Patient presents to follow up for hypertension Encounter Details Date Type Department Care Team (Late st Contact Info) Description 08/16/2023 9:30 AM CDT Office Visit [facility] Family Medicine - [place] [address] [place] [address] Yasmin Valenzuela II, MD [address] [place] [address] Hypertension Follow Up (Patient presents to follow up for hypertension) Social History Tobacco Use Types Packs/Day Years Used Date Smoking Tobacco: Never Smokeless Tobacco: Never Tobacco Cessation:Counseling Given: No Alcohol Use Standard Drinks/Week Comments Not Currently 0 (1 standard drink = 0.6 oz pur e alcohol) few times per year [facility] Utilities Answer Date Recorded In [...] Recorded Patient Health Questionnaire-2 Score 1 03/05/2023 [place] [facility] - Occupational Stress [...] Body Mass Index 32.77 03/05/2023 1:02 PM SUPERVISING BAILIFF documented in this encounter Functional Status * Are you deaf or do you have serious difficulty hearing Answer Date of Assessment Author Status No 03/06/2023 3:39 PM SUPERVISING BAILIFF Teresa Amaya RN Active * Are you blind or do you have serious difficulty seeing, even when wearing glasses? Answer Date of Assessment Author Status Yes 03/06/2023 3:39 PM SUPERVISING BAILIFF Teresa Amaya RN Active * Do you have serious difficulty walking or climbing stairs? Answer Date of Assessment Author Status Yes 03/06/2023 3:39 PM SUPERVISING BAILIFF Teresa Amaya RN Active * Do you [...] from the original note were not included. [facility] [address] [address] OFFICE FOLLOW UP NOTE Encounter Date: 08/16/2023 [...] other left toe(s) (CMS/HCC HHS/HCC) Atherosclerosis of [place] arteries of extremities with intermittent claudication, bilateral legs ([facility]) Intractable abdominal pain Abdominal pain Intractable vomiting Peptic ulcer Epigastric abdominal pain UTI (urinary tract infection) Class 1 obesity due to excess calories with serious comorbidity and body mass index (BMI) of 32.0 to 32.9 in adult Past Medical History: Diagnosis Date Arthritis Charcot foot due to diabetes mellitus ([facility]) LEFT FOOT Constipation COVID-19 Diabetes mellitus ([facility]) Diabetic neuropathy ([facility]) Gastric ulcer High cholesterol Hypertension Kidney [...] min Stress: No Stress Concern Present (03/06/2023) [place] [facility] - Occupational Stress Questionnaire [...] term current use of insulin ([facility]) HEMOGLOBIN, GLYCOSYLATED semaglutide (OZEMPIC) 2 MG/3ML injection (PEN) 2. Primary hypertension CBC W/DIFF AUTOMATED COMPREHENSIVE METABOLIC PANEL 3. Acute cystitis without hematuria URINE BACTERIA CULTURE fosfomycin (MONUROL) 3 g Pack URINALYSIS AUTO DIP 4. Hypercholesteremia LIPID PANEL 5. Acquired absence of other left toe(s) ([facility] HHS/[facility]) 6. Class 1 obesity due to [...] term current use of insulin ([facility] HHS/[facility]) Patient's glucose readings have been elevated. [...] absence of other left toe(s) ([facility]/HCC [facility]) Patient will continue to follow with [...] the day of the encounter. This includes mjia-gh-pcok and egg-kqjh-qn-face time I provided on the day of the encounter & excludes time spent performing separately reportable services. Medications Discontinued During This Encounter Medication Reason oxyCODONE-acetaminophen (PERCOCET) 5-325 MG tablet Therapy completed YASMIN VALENZUELA MD 08/16/2023 Portions of this note were dictated using [employer] speech recognition software. Occasional wrong wordor sound-alike substitutions may have occurred due to the inherent limitations of voice recognition software. Please read the chart carefully and recognize, using context, where the substitutions may have occurred. documented in this encounter Plan of Treatment Upcoming Encounters Date Type Department Care Team (Late st Contact Info) Description 03/14/2024 11:45 AM SUPERVISING BAILIFF Office Visit [facility] [phone] Marvin Mckeon MD [address] [facility] [address] [place], [place] [phone] 03/20/2024 11:30 AM SUPERVISING BAILIFF Office Visit [facility] Family Medicine - [address] [address] Yasmin Valenzuela II, MD [address] [place], [place] [phone] documented as of this encounter Goals Goal [...] 224(H) <200 MG/DL 08/16/2023 11:58 AM CDT [facility] TRIGLYCERIDES 321(H) <150 MG/DL 08/16/2023 11:58 AM CDT [facility] HDL 48 >40.0 MG/DL 08/16/2023 11:58 AM T [facility] LDL (CALCULATED) 112(H) <100 MG/DL 08/16/2023 11:58 AM T [facility] NON HDL CHOLESTEROL 176(H) <130 MG/DL 08/16/2023 11:58 AM [facility] CHOL/HDL RATIO 4.7(H) 0.0 - 4.5 08/16/2023 11:58 AM T [facility] VLDL CALCULATION 64(H) 5 - 55 MG/DL 08/16/2023 11:58 AM [facility] LIPID INTERPRETATION 08/16/2023 11:58 AM [facility] Comment: NIH CONCENSUS REPORT RECOMMENDATIONS: [...] LABORATORY Final R esult Performing Organization Address [facility]/State/ZIP Co de Phone Number [facility] [address] [place] [address], * (ABNORMAL) COMPREHENSIVE METABOLIC PANEL (08/16/2023 10:47 AM CDT) GLUCOSE 185(H) 70 - 99 MG/DL 08/16/2023 11:58 AM CDT [facility] BUN 22(H) 7 - 18 MG/DL 08/16/2023 11:58 AM CDT [facility] CREATININE S/P/B 1.11(H) 0.55 - 1.02 MG/DL 08/16/2023 11:58 AM CDT [facility] SODIUM S/P/B 137 136 - 145 MMOL/L 08/16/2023 11:58 AM CDT [facility] POTASSIUM S/P/B 4.2 3.5 - 5.1 MMOL/L 08/16/2023 11:58 AM CDT [facility] CHLORIDE S/P/B 107 100 - 108 MMOL/L 08/16/2023 11:58 AM CDT [facility] CO2 25.2 21 - 32 MMOL/L 08/16/2023 11:58 AM T [facility] CALCIUM S/P/B 9.4 8.5 - 10.1 MG/DL 08/16/2023 11:58 AM [facility] BILIRUBIN TOTAL S/P/B 0.5 0.2 - 1.2 MG/DL 08/16/2023 11:58 AM T [facility] Comment: THIS ASSAY IS NOT RECOMMENDED FOR PATIENTS UNDERGOING TREATMENT WITH ELTROMBOPAG DUE TO THE POTENTIAL FOR FALSELY ELEVATED RESULTS. TOTAL PROTEIN S/P/B 8.9(H) 6.4 - 8.2 G/DL 08/16/2023 11:58 AM [facility] ALBUMIN S/P/B 3.3(L) 3.4 - 5.0 G/DL 08/16/2023 11:58 AM T [facility] AST 26 15 - 37 U/L 08/16/2023 11:58 AM [facility] ALT 39 14 - 55 U/L 08/16/2023 11:58 AM [facility] ALKALINE PHOSPHATASE S/P/B 181(H) 50 - 136 U/L 08/16/2023 11:58 AM [facility] ANION GAP 4.8(L) 5 - 15 MMOL/L 08/16/2023 11:58 AM [facility] BUN CREATININE RATIO 19.8 6 - 26 08/16/2023 11:58 AM [facility] A/G RATIO 0.6(L) 1.0 - 2.0 RATIO 08/16/2023 11:58 AM [facility] GFR ESTIMATE 60(L) >90 ML/MIN/1.7 3 M2 08/16/2023 11:58 AM T [facility] Comment: NOTE: eGFR [...] Valenzuela II, MD LABORATORY Final R esult [facility] [address] [place] [address], [place] [phone] * (ABNORMAL) CBC W/DIFF AUTOMATED (08/16/2023 10:47 AM CDT) WBC 8.67 4.5 - 11.0 x10'3/uL 08/16/2023 11:29 AM CDT [facility] RBC 4.14(L) 4.20 - 5.40 x10'6/uL 08/16/2023 11:29 AM CDT [facility] HGB 12.4 12.0 - 16.0 G/DL 08/16/2023 11:29 AM CDT [facility] HCT 37.7(L) 38.0 - 48.0 % 08/16/2023 11:29 AM CDT [facility] MCV 91.1 81.0 - 99.0 FL 08/16/2023 11:29 AM CDT [facility] MCH 30.0 27.0 - 31.0 PG 08/16/2023 11:29 AM CDT [facility] MCHC 32.9 32.0 - 36.0 G/DL 08/16/2023 11:29 AM CDT [facility] RDW 13.2 11.5 - 14.5 % 08/16/2023 11:29 AM CDT [facility] PLT 270 130 - 400 x10'3/uL 08/16/2023 11:29 AM T [facility] MPV 11.8 9.3 - 12.2 FL 08/16/2023 11:29 AM T [facility] DIFFERENTIAL TYPE AUTOMATED DIFFERENTIAL 08/16/2023 11:29 AM T [facility] NEUTROPHILS % 60.5 % 08/16/2023 11:29 AM T [facility] LYMPHOCYTES % 32.8 % 08/16/2023 11:29 AM T [facility] MONOCYTES % 5.1 % 08/16/2023 11:29 AM T [facility] EOSINOPHILS 0.9 % 08/16/2023 11:29 AM T [facility] BASOPHILS 0.5 % 08/16/2023 11:29 AM T [facility] IMMATURE GRANS % 0.2 % 08/16/19 11:29 AM T [facility] ABS. NEUTROPHILS 5.25 1.80 - 7.70 x10'3/uL 08/16/2023 11:29 AM T [facility] ABS. LYMPHOCYTES 2.84 1.00 - 4.80 x10'3/uL 08/16/2023 11:29 AM T [facility] ABS. MONOCYTES 0.44 0.24 - 0.86 x10'3/uL 08/16/2023 11:29 AM CDT [facility] ABS. EOSINOPHILS 0.08 0.04 - 0.36 x10'3/uL 08/16/2023 11:29 AM T [facility] ABS. BASOPHILS 0.04 0.01 - 0.08 x10'3/uL 08/16/2023 11:29 AM T [facility] ABS. IMMATURE GRANULOCYTES 0.02 0.00 - 0.49 x10'3/uL 08/16/2023 11:29 AM CDT [facility] 08/16/2023 10:4 7 AM CDT Yasmin Valenzuela II, MD LABORATORY Final R [facility] Performing Organization Address [facility] de Phone Number [facility] [address] [place] [address], * (ABNORMAL) HEMOGLOBIN, GLYCOSYLATED (08/16/2023 10:47 AM CDT) HGB A1C 11.3(H) <5.7 % 08/16/2023 11:57 AM CDT [facility] Comment: ADA GUIDELINES 2010 5.7 TO 6.4% INCREASED RISK OF DIABETES > OR = 6.5% CONSISTENT WITH DIABETES ESTIMATED AVG GLUCOSE 278 mg/dL 08/16/2023 11:57 AM CDT [facility] 08/16/2023 10:4 7 AM CDT Yasmin Valenzuela II, MD LABORATORY Final R [facility] Performing Organization Address [facility] de Phone Number [facility] [address] [place] [address], * URINE BACTERIA CULTURE (08/16/2023 9:50 AM CDT) CULTURE RESULT [facility] [employer], [place] Comment: ??CULTURE, URINE, ROUTINE ?Micro Number: ?[id number] ??Test Status: ? Final ??Specimen Source: ?? Urine ??Specimen Quality: ??Adequate ??Result: ?No Growth URINE SPECIMEN OBTAINED BY CLEAN CATCH PROCEDURE / Unknown 08/16/2023 9:50 AM CDT 08/17/2023 3:18 AM CDT Narrative Resulting Agency Comment Performing Organization Information: ?Site ID: [id number] ?Name: [facility] ?Address: [address] [place] [id number] ?Director: Robert Mendez Yasmin Valenzuela II, MD MICROBIOLOGY - GENERAL ORDERABLES Final Result [facility] [address] [place] [address], * (ABNORMAL) URINALYSIS AUTO DIP (08/16/2023) COLOR [...] II, MD URINE ORDERABLES Final Result [facility] [place] [address], documented in this encounter Visit Diagnoses Diagnosis Type 2 diabetes mellitus with diabetic neuropathic arthropathy, with long-term current use of insulin ([facility])- Primary Primary hypertension Unspecified essential hypertension Acute cystitis without hematuria Acute cystitis Hypercholesteremia Pure hypercholesterolemia Acquired absence of other left toe(s) ([facility]) Class 1 obesity due to excess calories with serious comorbidity and body mass index (BMI) of 32.0 to 32.9 in adult documented in this encounter Additional Health Concerns Assessment Noted Time PHQ-9 Depression Total Score: 0 03/08/19 22 9:30 AM SUPERVISING BAILIFF documented as of this encounter Care Teams District Captain Relationship Specialty Start Date End Date Yasmin Valenzuela II, MD [address] [place] [address] PCP - General FAMILY PRACTICE 03/09/21 [place] [address] [place] [address] PODIATRY/SURGERY 05/05/22 documented as of this encounter
--- OUTSIDE RECORDS SUMMARY | 2024-03-03 01:18 | XMS_ITS | Encounter Summary ---
Author Organization [facility] Address [address] [place] [address]. [place] [address] [place] [address] Care Team Providers Care Private Eye Name Role Phone Colton SILVEIRA MD, Abiodun Rushing Primary Care Provider Victoriano Langston MD Unavailable [phone] Reason for Visit * Reason Onset Date Comments Results 08/27/2023 Encounter Details Date Type Department Care Team (Late st Contact Info) Description 08/27/2023 Telephone [facility] Family Medicine - [place] [address] [place] [address] Abiodun Segura II, MD [address] [place] [address] Results Social History Tobacco Use Types Packs/Day Years Used Date Smoking Tobacco: Never Smokeless Tobacco: Never Alcohol Use Standard Drinks/Week Comments Not Currently 0 (1 standard drink = 0.6 oz pur e alcohol) few times per year [facility] Utilities Answer Date Recorded [...] Patient Health Questionnaire-2 Score 1 03/05/2023 [facility] Occupat ional [facility] - Occupational Stress Questionnaire Answer Date [...] 1:28 PM CDT Received a fax from [facility] about patient Fosfomycin medication they need [...] st Contact Info) Description 03/14/2024 11:45 AM INSPECTOR FILTERS Office Visit [facility]-[address] [phone] Marvin Mckeon MD [address] [facility] [address] [place] [address] 03/20/2024 11:30 AM INSPECTOR FILTERS Office Visit [facility] Family Medicine - [place] [address] [place] [phone] Abiodun Segura II, MD [address] [place] [phone] documented as of this encounter Goals Goal Patient Goal Type Associated Problems Recent Progress Patient-Stated? 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
--- OUTSIDE RECORDS SUMMARY | 2024-03-03 01:18 | XMS_ITS | Encounter Summary ---
Author Organization [facility] Address [address] [place] [address]. [place] [address] [place] [address] Care Team Providers Care Senior System Operator Name Role Phone Colton SILVEIRA MD, Abiodun Rushing Primary Care Provider Victoriano Langston MD Unavailable [phone] Reason for Visit * Reason Onset Date Comments Quality Gap Closure 10/24/2023 Record Request 10/24/2023 Encounter Details Date Type Department Care Team (Late st Contact Info) Description 10/24/2023 Telephone [facility] Family Medicine - [place] [address] [place] [address] Abiodun Segura II, MD [address] [place] [address] Quality Gap Closure; Record Request Social History Tobacco Use Types Packs/Day Years Used Date Smoking Tobacco: Never Smokeless Tobacco: Never Alcohol Use Standard Drinks/Week Comments Not Currently 0 (1 standard drink = 0.6 oz pur e alcohol) few times per year [facility] Utilities Answer Date Recorded In the past 12 months has e [employer], gas, oil, or water [employer] threatened to shut off services in your [...] Recorded Patient Health Questionnaire-2 Score 1 03/05/2023 [facility] of Occupat ional [facility] - Occupational Stress Questionnaire Answer Date [...] Date Author Status No 03/06/2023 3:39 PM BOOK EDITOR Amaya, Teresa K , RN Active documented in this encounter Progress Notes * Merced Wise MA - 10/24/2023 10:32 AM CDT Requesting the most recent dm eye exam report from [facility] and sent to the PCP on 10/24/2023 documented in this encounter Plan of Treatment Upcoming Encounters Date Type Department Care Team (Late st Contact Info) Description 03/14/2024 11:45 AM BOOK EDITOR Office Visit [place] [facility] [phone] Marvin Mckeon MD [address] [facility] [address] [place], [place] [phone] 03/20/2024 11:30 AM BOOK EDITOR Office Visit [facility] Family Medicine - [place] [address] [place] [phone] Abiodun Segura II, MD [address] [place], [place] [phone] documented as of this encounter Goals Goal Patient Goal Type Associated Problems Recent Progress Patient-Stated? Author Family - family caregiver with be involved in care transitions and discharge planning Lifestyle No Natty Cheek, RN documented as of this encounter Visit Diagnoses Not on filedocumented in this encounter Additional Health Concerns Assessment Noted Time PHQ-9 Depression Total Score: 0 03/08/19 9:30 AM BOOK EDITOR documented as of this encounter Care Teams Senior System Operator Relationship Specialty Start Date End Date Abiodun Segura II, MD [address] [place], [place] [phone] PCP - General FAMILY PRACTICE 03/09/21 [place] [address] [place] [address] PODIATRY/SURGERY 05/05/22 documented as of this encounter
--- OUTSIDE RECORDS SUMMARY | 2024-03-03 01:18 | XMS_ITS | Encounter Summary ---
Author Organization [facility] Address [address] [place] [address]. [place], [place] [phone] [place] [address] Care Team Providers Care Supervisor Chemical Name Role Phone Colton SILVEIRA MD, Abiodun Rushing Primary Care Provider Victoriano Langston MD Unavailable [phone] Encounter Details Date Type Department Care Team (Latest Contact Info) Description 03/19/2023 Travel Social History Tobacco Use Types Packs/Day Years Used Date Smoking Tobacco: Never Smokeless Tobacco: Never Alcohol Use Standard Drinks/Week Comments Not Currently 0 (1 standard drink = 0.6 oz pur e alcohol) few times per year [facility] Utilities Answer Date Recorded In the past 12 months has e [employer], gas, oil, or water [employer] threatened to shut off services in your [...] Contact Info) Description 03/14/2024 11:45 AM MACHINE OR MACHINERY MECHANIC Office Visit [place] [facility]-[address] [phone] Marvin Mckeon MD [facility] [address] [place] [address] 03/20/2024 11:30 AM MACHINE OR MACHINERY MECHANIC Office Visit [facility] Family Medicine - [place] [address] [place] [phone] Abiodun Segura II, MD [address] [place] [address] documented as of this encounter Goals Goal Patient Goal Type Associated Problems Recent Progress Patient-Stated? Author Family - family caregiver with be involved in care transitions and discharge planning Lifestyle Natty Angeles, RN documented as of this encounter Visit Diagnoses Not on filedocumented in this encounter Additional Health Concerns Assessment Noted Time PHQ-9 Depression Total Score: 0 03/08/19 9:30 AM MACHINE OR MACHINERY MECHANIC documented as of this encounter Care Teams Supervisor Chemical Relationship Specialty Start Date End Date Abiodun Segura II, MD [address] [place] [address] PCP - General FAMILY PRACTICE 03/09/21 [place] [address] [place] [address] PODIATRY/SURGERY 05/05/22 documented as of this encounter
--- OUTSIDE RECORDS SUMMARY | 2024-03-03 01:18 | XMS_ITS | Encounter Summary ---
Author Organization [facility] Address [address] [place] [address]. [place], [place] [address] [place] [address] Care Team Providers Care Nutrition Services Worker Name Role Phone Colton SILVEIRA MD, Abiodun Rushing Primary Care Provider Victoriano Langston MD Unavailable [phone] Encounter Details Date Type Department Care Team (Latest Contact Info) Description 08/16/2023 Travel Social History Tobacco Use Types Packs/Day Years Used Date Smoking Tobacco: Never Smokeless Tobacco: Never Alcohol Use Standard Drinks/Week Comments Not Currently 0 (1 standard drink = 0.6 oz pur e alcohol) few times per year [facility] Utilities Answer Date Recorded In the past 12 months has e [employer], gas, oil, or water [employer] threatened to shut off services in your [...] Recorded Patient Health Questionnaire-2 Score 1 03/05/2023 [facility] of Occupat ional Health - Occupational [...] Contact Info) Description 03/14/2024 11:45 AM AIR DEFENCE OFFICER Office Visit [place] [facility] [phone] Marvin Mckeon MD [facility] [address] [place] [address] 03/20/2024 11:30 AM AIR DEFENCE OFFICER Office Visit [facility] Family Medicine - [place] 100 [place] [phone] Abiodun Segura II, MD 100 [place] [address] documented as of this encounter Goals Goal Patient Goal Type Associated Problems Recent Progress Patient-Stated? Author Family - family caregiver with be involved in care transitions and discharge planning Lifestyle Natty Angeles, RN documented as of this encounter Visit Diagnoses Not on filedocumented in this encounter Additional Health Concerns Assessment Noted Time PHQ-9 Depression Total Score: 0 03/08/19 9:30 AM AIR DEFENCE OFFICER documented as of this encounter Care Teams Nutrition Services Worker Relationship Specialty Start Date End Date Abiodun Segura II, MD [address] [place] [address] PCP - General FAMILY PRACTICE 03/09/21 [place] [address] [place] [address] PODIATRY/SURGERY 05/05/22 documented as of this encounter
--- OUTSIDE RECORDS SUMMARY | 2024-03-03 01:18 | XMS_ITS | Encounter Summary ---
Author Organization [facility] Address [address] [place] [address]. [place], [place] [address] [place] [address] Care Team Providers Care Wheelman Name Role Phone Colton SILVEIRA MD, Abiodun Rushing Primary Care Provider Victoriano Langston MD Unavailable [phone] Encounter Details Date Type Department Care Team (Latest Contact Info) Description 04/24/2023 Scan HEALTH INFO SRVCS Scanned, Doc Med Group Social History Tobacco Use Types Packs/Day Years Used Date Smoking Tobacco: Never Smokeless Tobacco: Never Alcohol Use Standard Drinks/Week Comments Not Currently 0 (1 standard drink = 0.6 oz pur e alcohol) few times per year [facility] Utilities Answer Date Recorded In the past 12 months has [facility] [employer], gas, oil, or water [employer] threatened to shut off services in your [...] st Contact Info) Description 03/14/2024 11:45 AM TOMATO PASTE MAKER Office Visit [facility] [address] Marvin Mckeon MD [facility] [address] [place] [address] 03/20/2024 11:30 AM TOMATO PASTE MAKER Office Visit [facility] Family Medicine - [place] [address] [place] [phone] Abiodun Segura II, MD [address] [place] [address] documented as of this encounter Goals Goal Patient Goal Type Associated Problems Recent Progress Patient-Stated? Author Family - family caregiver with be involved in care transitions and discharge planning Lifestyle No Natty Cheek, RN documented as of this encounter Visit Diagnoses Not on filedocumented in this encounter Additional Health Concerns Assessment Noted Time PHQ-9 Depression Total Score: 0 03/08/19 9:30 AM TOMATO PASTE MAKER documented as of this encounter Care Teams Wheelman Relationship Specialty Start Date End Date Abiodun Segura II, MD [address] [place] [address] PCP - General FAMILY PRACTICE 03/09/21 [place] [address] [place] [address] PODIATRY/SURGERY 05/05/22 documented as of this encounter
--- OUTSIDE RECORDS SUMMARY | 2024-03-03 01:18 | XMS_ITS | Encounter Summary ---
Author Organization [facility] Address [address] [place] [address]. [place] [address] [place] [address] Care Team Providers Care Internet Architect Name Role Phone Colotn SILVEIRA MD, Abiodun Rushing Primary Care Provider Victoriano Langston MD Unavailable [phone] Reason for Visit * Reason Onset Date Comments Referral 10/10/2023 Encounter Details Date Type Department Care Team (Late st Contact Info) Description 10/10/2023 Telephone [facility] Multispecialty [facility] [address] [place] [address] Tutu Farley MD [address] [place] [address] Referral Social History Tobacco Use Types Packs/Day Years Used Date Smoking Tobacco: Never Smokeless Tobacco: Never Alcohol Use Standard Drinks/Week Comments Not Currently 0 (1 standard drink = 0.6 oz pur e alcohol) few times per year [facility] Utilities Answer Date Recorded In the [...] Recorded Patient Health Questionnaire-2 Score 1 03/05/2023 [facility] ional Health - Occupational [...] in a residential (including now)? No 03/06/2023 Comments No Sex [...] concerns but unfortunately we are not accepting TREE CUTTER referrals at the moment. * Marta Holt - 10/24/2023 1:13 PM CDT Pt called back to see about their appointment with please call pt back to schedule.Pt has been waiting two weeks.Please leave pt voicemail if not able to reach. [phone] * Laverne Pemberton LPN - 10/16/2023 2:20 PM CDT Patient returned call to discuss referral appointment. * Adenike Mcneal - 10/11/2023 12:26 PM CDT Caller/Facility/Doctor name: PT Lena Note: Returning call MyChart: N/A Call back/Ext. #: [phone] * Laverne Pemberton LPN - 10/11/2023 12:20 PM CDT Message left for patient to call office to discuss appointment. * Marta Holt - 10/10/2023 11:19 AM CDT Pt called to get referral scheduled for . Please call PT to schedule [phone] documented in this encounter Plan of Treatment Upcoming Encounters Date Type Department Care Team (Late st Contact Info) Description 03/14/2024 11:45 AM FOREST WORKER Office Visit [facility] [phone] Marvin Mckeon MD [address] [facility] [address] [place], [place] [id number] 03/20/2024 11:30 AM FOREST WORKER Office Visit [facility] Family Medicine - [place] [address] [place] [phone] Abiodun Segura II, MD 100 [place] [address] documented as of this encounter Goals Goal Patient Goal Type Associated Problems Recent Progress Patient-Stated? Author Family - family caregiver with be involved in care transitions and discharge planning Lifestyle No Natty Cheek, RN documented as of this encounter Visit Diagnoses Not on filedocumented in this encounter Additional Health Concerns Assessment Noted Time PHQ-9 Depression Total Score: 0 03/08/19 22 9:30 AM FOREST WORKER documented as of this encounter Care Teams Internet Architect Relationship Specialty Start Date End Date Abiodun Segura II, MD [address] [place], [place] [address] PCP - General FAMILY PRACTICE 03/09/21 [place] [address] [place] [address] PODIATRY/SURGERY 05/05/22 documented as of this encounter
--- OUTSIDE RECORDS SUMMARY | 2024-03-03 01:18 | XMS_ITS | Encounter Summary ---
Author Organization [facility] Address [address] [place] [address]. [place] [address] [place] [address] Care Team Providers Care Hospital Wellness Coordinator Name Role Phone Colton SILVEIRA MD, Abiodun Rushing Primary Care Provider Victoriano Langston MD Unavailable [phone] Reason for Visit * Reason Onset Date Comments Medication Problem 06/15/2023 Encounter Details Date Type Department Care Team (Late st Contact Info) Description 06/15/2023 Telephone [facility] Family Medicine - [place] 100 [place] [address] Abiodun Segura II, MD 100 [place] [address] Medication Problem Social History Tobacco Use Types Packs/Day Years Used Date Smoking Tobacco: Never Smokeless Tobacco: Never Alcohol Use Standard Drinks/Week Comments Not Currently 0 (1 standard drink = 0.6 oz pur e alcohol) few times per year [facility] Utilities Answer Date Recorded In the past 12 months has e [employer], gas, oil, or water company threatened to [...] Recorded Patient Health Questionnaire-2 Score 1 03/05/2023 [facility] Occupat [...] in a chcf (including now)? No 03/06/2023 Comments No Sex [...] 145 mcg cyclobenzaprine (FLEXERIL) tablet 10 mg [facility] [address] [place] [address] * Conchita Mancilla - 06/15/2023 10:51 AM [...] 145 mcg cyclobenzaprine (FLEXERIL) tablet 10 mg [facility] [address] [place] [address] [facility] [address] [facility] [address] documented in this encounter Plan of Treatment Upcoming Encounters Date Type Department Care Team (Late st Contact Info) Description 03/14/2024 11:45 AM TECHNICAL SUPPORT ENGINEER Office Visit [facility] [address] Marvin Mckeon MD Three [facility] [address] [place], [place] [phone] 03/20/2024 11:30 AM TECHNICAL SUPPORT ENGINEER Office Visit [facility] Family Medicine - [place] [address] [place] [phone] Abiodun Segura II, MD [address] [place], [place] [phone] documented as of this encounter Goals Goal Patient Goal Type Associated Problems Recent Progress Patient-Stated? Author Family - family caregiver with be involved in care transitions and discharge planning Lifestyle No Natty Cheek, RN documented as of this encounter Visit Diagnoses Not on filedocumented in this encounter Additional Health Concerns Assessment Noted Time PHQ-9 Depression Total Score: 0 03/08/19 9:30 AM TECHNICAL SUPPORT ENGINEER documented as of this encounter Care Teams Hospital Wellness Coordinator Relationship Specialty Start Date End Date Abiodun Segura II, MD [address] [place] [address] PCP - General FAMILY PRACTICE 03/09/21 [place] [address] [place] [address] PODIATRY/SURGERY 05/05/22 documented as of this encounter
--- OUTSIDE RECORDS SUMMARY | 2024-03-03 01:18 | XMS_ITS | Encounter Summary ---
Author Organization [facility] Address [address] [place] [address]. [place], [place] [address] [place] [address] Care Team Providers Care Welder Tool And Die Name Role Phone Colton SILVEIRA MD, Yasmin Rushing Primary Care Provider Victoriano Langston MD Unavailable [phone] Reason for Referral * Consultation (Urgent) - Authorized Specialty Diagnoses / Procedures Referred By Contxavier t Referred To Contact INFECTIOUS DISEASE Diagnoses Acute cystitis without hematuria Procedures OFFICE/OUTPATIENT NEW LOW MDM 30-44 MINUTES OFFICE/OUTPT VISIT,NEW,LEVL IV OFFICE/OUTPT VISIT,NEW,LEVL V OFFICE/OUTPT VISIT,EST,LEVL III OFFICE/OUTPT VISIT,EST,LEVL IV OFFICE/OUTPT VISIT,EST,LEVL V Yasmin Valenzuela II, MD 100 [place] [address] Phone: tel: fax: Tutu Farley MD [address] [place] [address] Phone: tel: fax: Referral ID Status Reason Start Date Expiration Date Visits Requested Visits Authorized [id number] Authorized Specialty Services 09/26/2023 09/25/2024 99 99 Scheduling Instructions 53 yo female with multiple recurrent resistant UTI's . Please evaluate and treat. Thanks. Reason for Visit * Reason Comments Health Maintenance Follow Up Patient pre sents for health maintenance to follow up for diabetes Encounter Details Date Type Department Care Team (Rebeca st Contact Info) Description 09/26/2023 10:50 AM CDT Office Visit [facility] Family Medicine - [place] [address] [place] [phone] Yasmin Valenzuela II, MD [address] [place] [address] Health Maintenance Follow Up (Patient presents for health maintenance to follow up for diabetes) Social History Tobacco Use Types Packs/Day Years Used Date Smoking Tobacco: Never Smokeless Tobacco: Never Tobacco Cessation:Counseling Given: No Alcohol Use Standard Drinks/Week Comments Not Currently 0 (1 standard drink = 0.6 oz pur e alcohol) few times per year [facility] Utilities Answer Date Recorded In the past 12 months has [employer], gas, oil, or water [employer] threatened to shut off services in your [...] Patient Health Questionnaire-2 Score 1 03/05/2023 [facility] - Occupational Stress Questionnaire [...] Body Mass Index 33.57 03/05/2023 1:02 PM AIRPORT OPERATIONS DUTY MANAGER documented in this encounter Functional Status * Are you deaf or do you have serious difficulty hearing Answer Date of Assessment Author Status No 03/06/2023 3:39 PM AIRPORT OPERATIONS DUTY MANAGER Teresa Amaya RN Active * Are you blind or do you have serious difficulty seeing, even when wearing glasses? Answer Date of Assessment Author Status Yes 03/06/2023 3:39 PM AIRPORT OPERATIONS DUTY MANAGER Teresa Amaya RN Active * Do you have serious difficulty walking or climbing stairs? Answer Date of Assessment Author Status Yes 03/06/2023 3:39 PM AIRPORT OPERATIONS DUTY MANAGER Teresa Amaya RN Active * Do you have difficulty dressing or bathing? Answer Date of Assessment Author Status Yes 03/06/2023 3:39 PM AIRPORT OPERATIONS DUTY MANAGER Teresa Amaya RN Active * Because of [...] of referral,this call may come from the [facility] Referral team at [phone] or from an [facility] hospital or an [facility] clinic. Insurance Authorization - Our referral specialists will contact your insurance company to get priorauthorization, if applicable. Working with insurance companies can be cumbersome, but we are dedicated to processing your referral timely and efficiently. Please know you have a caring and competent team working on your behalf [facility] continuum of care as quickly as possible. If you have questions or concerns regarding your referral, or have not heard anything in 5 days, please call [phone]. Sunday - Sunday, 7:30 a.m. - 5 p.m. documented in this encounter Progress Notes * Yasmin Valenzuela II, MD - 09/26/2023 10:50 AM CDT Images from the original note were not included. [facility] FAMILY [address] [address] OFFICE FOLLOW UP NOTE Encounter Date: 09/26/2023 [...] Diagnosis Hypercholesteremia Hypertension Type 2 diabetes mellitus ([facility]) Renal disorder Chronic bilateral low back pain without sciatica Callus of foot Vision decreased Renal stones Charcot foot due to diabetes mellitus ([facility]) Hot flashes due to menopause Chest pain Diabetic foot infection ([facility] Osteomyelitis ([facility]) Soft tissue infection of foot Necrotic toes ([facility]) Acquired absence of other left toe(s) ([facility]) Atherosclerosis of [place] arteries of extremities with intermittent claudication, bilateral legs ([facility]) Intractable abdominal pain Abdominal pain Intractable vomiting Peptic ulcer Epigastric abdominal pain UTI (urinary tract infection) Class 1 obesity due to excess calories with serious comorbidity and body mass index (BMI) of 32.0 to 32.9 in adult Past Medical History: Diagnosis Date Arthritis Charcot foot due to diabetes mellitus ([facility]) LEFT FOOT Constipation COVID-19 Diabetes mellitus ([facility]) Diabetic neuropathy ([facility]) Gastric ulcer High cholesterol Hypertension [...] min Stress: No Stress Concern Present (03/06/2023) [place] [facility]ational [facility] - Occupational Stress Questionnaire [...] with long- term current use of insulin ([facility]) 3. Hypercholesteremia 4. Acute cystitis without hematuria [...] We will continue amlodipine 10 mg daily, eggxtnsert33 mg daily and we will recheck blood pressure at follow-up in October. 2. Type 2 diabetes mellitus with diabetic neuropathic arthropathy, with long- term current use of insulin ([facility]) Patient's hemoglobin A1c is not at goal. [...] the day of the encounter. This includes cvgn-em-jyek and kbc-pxns-uq-face time I provided on the day of the encounter & excludes time spent performing separately reportable services. There are no discontinued medications. YASMIN VALENZUELA MD 09/26/2023 Portions of this note were dictated using [employer] speech recognition software. Occasional wrong wordor sound-alike [...] st Contact Info) Description 03/14/2024 11:45 AM AIRPORT OPERATIONS DUTY MANAGER Office Visit [facility]-[address] [address] Marvin Mckeon MD [address] [facility] [address] [place] [address] 03/20/2024 11:30 AM AIRPORT OPERATIONS DUTY MANAGER Office Visit [facility] Family Medicine - [place] [address] [place] [phone] Yasmin Valenzuela II, MD [address] [place] [address] Scheduled Referrals Name Type Priority Associated Diagnoses Orde r Schedule Ambulatory referral to Infectious Disease ([facility]) Referral Routine Acute cystitis without hematuria [...] (09/26/2023 11:10 AM CDT) CULTURE RESULT (A) [employer], [place] Comment: ??CULTURE, URINE, ROUTINE ?Micro Number: ?[id number] ??Test Status: ? Final ??Specimen Source: ?? [...] Performing Organization Information: ?Site ID: [id number] ?Name: [facility] ?Address: Critical [place] [address] ?Director: Robert Mendez us Yasmin Valenzuela II, MD MICROBIOLOGY - GENERAL ORDERABLES Final Result [facility] [address], * (ABNORMAL) URINALYSIS AUTO DIP (09/26/2023) COLOR (U) PALE YELLOW YELLOW [facility],[place] TRANSPARENCY CLOUDY(A) CLEAR [facility] GLUCOSE (U) NEGATIVE NEGATIVE MG/DL [facility] BILIRUBIN (U) NEGATIVE NEGATIVE [facility],[place] KETONES MG/DL (U) NEGATIVE NEGATIVE MG/DL [facility],[place] SPECIFIC GRAVITY (U) 1.025 1.001 - 1.035 [facility],[place] BLOOD (U) MODERATE (2+ Hemolyzed, About 50 rbc/uL)(A) NEGATIVE [facility],[place] U PH 6.0 5.0 - 9.0 [facility],[place] PROTEIN (U) 3+ (>=300)(A) NEGATIVE mg/dL [facility],[place] UROBILINOGEN 0.2 0.2 - 1.0 EU/dL = mg/dL [facility],[place] NITRITES NEGATIVE NEGATIVE MG/DL [facility],[place] LEUKOCYTES (U) 3+ (LARGE)(A) NEGATIVE [facility] URINE SPECIMEN OBTAINED BY CLEAN CATCH PROCEDURE / Unknown 09/26/2023 Yasmin Valenzuela II, MD URINE ORDERABLES Final Result [facility] [address] [place] [address], documented in this encounter Visit Diagnoses Diagnosis Primary hypertension- Primary Unspecified essential hypertension Type 2 diabetes mellitus with diabetic neuropathic arthropathy, with long-term current use of insulin ([facility]) Hypercholesteremia Pure hypercholesterolemia Acute cystitis without hematuria Acute cystitis Class 1 obesity due to excess calories with serious comorbidity and body mass index (BMI) of 32.0 to 32.9 in adult documented in this encounter Additional Health Concerns Assessment Noted Time PHQ-9 Depression Total Score: 0 03/08/19 22 9:30 AM AIRPORT OPERATIONS DUTY MANAGER documented as of this encounter Care Teams Welder Tool And Die Relationship Specialty Start Date End Date Yasmin Valenzuela II, MD [address] [facility] [place] [address] PCP - General FAMILY PRACTICE 03/09/21 [place] [address] [place] [address] PODIATRY/SURGERY 05/05/22 documented as of this encounter
--- OUTSIDE RECORDS SUMMARY | 2024-03-03 01:18 | XMS_ITS | Encounter Summary ---
Author Organization [facility] Address [address] [place] [address]. [place] [address] [place] [address] Care Team Providers Care Senior Executive Compensation Analyst Name Role Phone Colton SILVEIRA MD, Abiodun Rushing Primary Care Provider Victoriano Langston MD Unavailable [phone] Reason for Visit * Reason Onset Date Comments Medication Information 05/28/2023 Encounter Details Date Type Department Care Team (Late st Contact Info) Description 05/28/2023 Telephone [facility] Family Medicine - [place] [address] [place] [address] Abiodun Segura II, MD [address] [place] [address] Medication Information Social History Tobacco Use Types Packs/Day Years Used Date Smoking Tobacco: Never Smokeless Tobacco: Never Alcohol Use Standard Drinks/Week Comments Not Currently 0 (1 standard drink = 0.6 oz pur e alcohol) few times per year [facility] Utilities Answer Date Recorded In the past 12 months has e [employer], gas, oil, or water [employer] threatened to shut off services in your [...] Score 1 03/05/2023 [facility] of Occupat ional Health - Occupational [...] 05/28/2023 4:42 PM CDT Darlene from [facility] called to report that Lena has been [...] st Contact Info) Description 03/14/2024 11:45 AM CIRCUIT MANAGER Office Visit [facility] [phone] Marvin Mckeon MD Three [facility] [address] [place], [place] [phone] 03/20/2024 11:30 AM CIRCUIT MANAGER Office Visit [facility] Family Medicine - [place] [address] [place] [phone] Abiodun Segura II, MD [address] [place], [place] [phone] documented as of this encounter Goals Goal Patient Goal Type Associated Problems Recent Progress Patient-Stated? Author Family - family caregiver with be involved in care transitions and discharge planning Lifestyle No Natty Cheek, RN documented as of this encounter Visit Diagnoses Not on filedocumented in this encounter Additional Health Concerns Assessment Noted Time PHQ-9 Depression Total Score: 0 03/08/19 22 9:30 AM CIRCUIT MANAGER documented as of this encounter Care Teams Senior Executive Compensation Analyst Relationship Specialty Start Date End Date Abiodun Segura II, MD [address] [place], [place] [phone] PCP - General FAMILY PRACTICE 03/09/21 [place] [address] [facility] [place] [address] PODIATRY/SURGERY 05/05/22 documented as of this encounter
--- OUTSIDE RECORDS SUMMARY | 2024-03-03 01:18 | XMS_ITS | Encounter Summary ---
Author Organization [facility] Address [address] [place] [address]. [place] [address] [place] [address] Care Team Providers Care School Leader Name Role Phone Colton SILVEIRA MD, Abiodun Rushing Primary Care Provider Victoriano Langston MD Unavailable [phone] Encounter Details Date Type Department Care Team (Late st Contact Info) Description 08/16/2023 10:27 AM CDT - 08/16/2023 11:59 PM CDT Hospital Encounter [facility] [place], [place] [phone] Abiodun Segura II, MD [address] [place] [address] Discharge Disposition: Home or Self Care (Routine Discharge) Social History Tobacco Use Types Packs/Day Years Used Date Smoking Tobacco: Never Smokeless Tobacco: Never Alcohol Use Standard Drinks/Week Comments Not Currently 0 (1 standard drink = 0.6 oz pur e alcohol) few times per year [facility] Utilities Answer Date Recorded In the past 12 months has th e [employer], gas, oil, or water [employer] threatened to shut off services in your [...] 1 03/05/2023 [facility] of Occupat ional [facility] - Occupational Stress Questionnaire Answer Date Recorded [...] in a retirement (including now)? No 03/06/2023 Comments No Sex [...] Assessment Author Status Yes 03/06/2023 3:39 PM eTresa Coe RN Active * Because of a [...] Date Author Status No 03/06/2023 3:39 PM RECONCILER Amaya, Teresa K , RN Active documented [...] current use of insulin ([facility]/HCC HHS/[facility]) Use as directed to inject [...] use of insulin ([facility]/HCC HHS/HCC) 1 strip by Other route [...] st Contact Info) Description 03/14/2024 11:45 AM RECONCILER Office Visit [facility] [address] Marvin Mckeon MD Three [facility] [address] [place], [place] [phone] 03/20/2024 11:30 AM RECONCILER Office Visit [facility] Family Medicine - [place] 100 [place] [phone] Abiodun Segura II, MD [address] [place], [place] [phone] documented as of this encounter Goals Goal [...] long-term current use of insulin ([facility]) COMPREHENSIVE METABOLIC PANEL Routine 08/16/2023 10:47 AM CDT Primary hypertension LIPID PANEL Routine 08/16/2023 10:47 AM CDT Hypercholesteremia CBC W/DIFF AUTOMATED Routine 08/16/2023 10:47 AM CDT Primary hypertension URINE BACTERIA CULTURE Routine 08/16/2023 9:50 AM CDT Acute cystitis without hematuria documented in this encounter Results * (ABNORMAL) LIPID PANEL (08/16/2023 10:47 AM CDT) CHOLESTEROL 224(H) <200 MG/DL 08/16/2023 11:58 AM CDT [facility] TRIGLYCERIDES 321(H) <150 MG/DL 08/16/2023 11:58 AM [facility] HDL 48 >40.0 MG/DL 08/16/2023 11:58 AM [facility] LDL (CALCULATED) 112(H) <100 MG/DL 08/16/2023 11:58 AM [facility] NON HDL CHOLESTEROL 176(H) <130 MG/DL 08/16/2023 11:58 AM [facility] CHOL/HDL RATIO 4.7(H) 0.0 - 4.5 08/16/2023 11:58 AM [facility] VLDL CALCULATION 64(H) 5 - 55 MG/DL 08/16/2023 11:58 AM [facility] LIPID INTERPRETATION 08/16/2023 11:58 AM [facility] Comment: NIH CONCENSUS REPORT RECOMMENDATIONS: ?ADULT [...] Segura II, MD LABORATORY Final R esult [facility] [address] [place] [address], * (ABNORMAL) COMPREHENSIVE METABOLIC PANEL (08/16/2023 10:47 AM CDT) GLUCOSE 185(H) 70 - 99 MG/DL 08/16/2023 11:58 AM CDT [facility] BUN 22(H) 7 - 18 MG/DL 08/16/2023 11:58 AM CDT [facility] CREATININE S/P/B 1.11(H) 0.55 - 1.02 MG/DL 08/16/2023 11:58 AM CDT [facility] SODIUM S/P/B 137 136 - 145 MMOL/L 08/16/2023 11:58 AM CDT [facility] POTASSIUM S/P/B 4.2 3.5 - 5.1 MMOL/L 08/16/2023 11:58 AM CDT [facility] CHLORIDE S/P/B 107 100 - 108 MMOL/L 08/16/2023 11:58 AM CDT [facility] CO2 25.2 21 - 32 MMOL/L 08/16/2023 11:58 AM T [facility] CALCIUM S/P/B 9.4 8.5 - 10.1 MG/DL 08/16/2023 11:58 AM T [facility] BILIRUBIN TOTAL S/P/B 0.5 0.2 - 1.2 MG/DL 08/16/2023 11:58 AM T [facility] Comment: THIS ASSAY IS NOT RECOMMENDED FOR PATIENTS UNDERGOING TREATMENT WITH ELTROMBOPAG DUE TO THE POTENTIAL FOR FALSELY ELEVATED RESULTS. TOTAL PROTEIN S/P/B 8.9(H) 6.4 - 8.2 G/DL 08/16/2023 11:58 AM T [facility] ALBUMIN S/P/B 3.3(L) 3.4 - 5.0 G/DL 08/16/2023 11:58 AM T [facility] AST 26 15 - 37 U/L 08/16/2023 11:58 AM T [facility] ALT 39 14 - 55 U/L 08/16/2023 11:58 AM T [facility] ALKALINE PHOSPHATASE S/P/B 181(H) 50 - 136 U/L 08/16/2023 11:58 AM T [facility] ANION GAP 4.8(L) 5 - 15 MMOL/L 08/16/2023 11:58 AM T [facility] BUN CREATININE RATIO 19.8 6 - 26 08/16/2023 11:58 AM T [facility] A/G RATIO 0.6(L) 1.0 - 2.0 RATIO 08/16/2023 11:58 AM [facility] GFR ESTIMATE 60(L) >90 ML/MIN/1.7 3 M2 08/16/2023 11:58 AM CDT [facility] Comment: NOTE: eGFR is not calculated for patients <18 years of age. This is an estimated GFR calculation using the new CKD EPI creatinine equation without race and so does not require a correction factor for race. This estimated GFR should not be used for calculating drug doses. 08/16/2023 10:4 7 AM CDT Abiodun Segura II, MD LABORATORY Final R esult [facility] 3 [place] [address], * (ABNORMAL) CBC W/DIFF AUTOMATED (08/16/2023 10:47 AM CDT) WBC 8.67 4.5 - 11.0 x10'3/uL 08/16/2023 11:29 AM CDT [facility] RBC 4.14(L) 4.20 - 5.40 x10'6/uL 08/16/2023 11:29 AM CDT [facility] HGB 12.4 12.0 - 16.0 G/DL 08/16/2023 11:29 AM CDT [facility] HCT 37.7(L) 38.0 - 48.0 % 08/16/2023 11:29 AM CDT [facility] MCV 91.1 81.0 - 99.0 FL 08/16/2023 11:29 AM CDT [facility] MCH 30.0 27.0 - 31.0 PG 08/16/2023 11:29 AM CDT [facility] MCHC 32.9 32.0 - 36.0 G/DL 08/16/2023 11:29 AM CDT [facility] RDW 13.2 11.5 - 14.5 % 08/16/2023 11:29 AM CDT [facility] PLT 270 130 - 400 x10'3/uL 08/16/2023 11:29 AM CDT [facility] MPV 11.8 9.3 - 12.2 FL 08/16/2023 11:29 AM T [facility] DIFFERENTIAL TYPE AUTOMATED DIFFERENTIAL 08/16/2023 11:29 AM CDT [facility] NEUTROPHILS % 60.5 % 08/16/2023 11:29 AM T [facility] LYMPHOCYTES % 32.8 % 08/16/2023 11:29 AM T [facility] MONOCYTES % 5.1 % 08/16/2023 11:29 AM T [facility] EOSINOPHILS 0.9 % 08/16/2023 11:29 AM T [facility] BASOPHILS 0.5 % 08/16/2023 11:29 AM CDT [facility] IMMATURE GRANS % 0.2 % 08/16/19 11:29 AM T [facility] ABS. NEUTROPHILS 5.25 1.80 - 7.70 x10'3/uL 08/16/2023 11:29 AM CDT [facility] ABS. LYMPHOCYTES 2.84 1.00 - 4.80 x10'3/uL 08/16/2023 11:29 AM CDT [facility] ABS. MONOCYTES 0.44 0.24 - 0.86 x10'3/uL 08/16/2023 11:29 AM T [facility] ABS. EOSINOPHILS 0.08 0.04 - 0.36 x10'3/uL 08/16/2023 11:29 AM CDT [facility] ABS. BASOPHILS 0.04 0.01 - 0.08 x10'3/uL 08/16/2023 11:29 AM CDT [facility] ABS. IMMATURE GRANULOCYTES 0.02 0.00 - 0.49 x10'3/uL 08/16/2023 11:29 AM CDT [facility] 08/16/2023 10:4 7 AM CDT Abiodun Segura II, MD LABORATORY Final R esnas Performing Organization Address City/[facility] Co de Phone Number [facility] 3 [place] [address], [place] [phone] * (ABNORMAL) HEMOGLOBIN, GLYCOSYLATED (08/16/2023 10:47 AM CDT) HGB A1C 11.3(H) <5.7 % 08/16/2023 11:57 AM CDT [facility] Comment: ADA GUIDELINES 2010 5.7 TO 6.4% INCREASED RISK OF DIABETES > OR = 6.5% CONSISTENT WITH DIABETES ESTIMATED AVG GLUCOSE 278 mg/dL 08/16/2023 11:57 AM CDT [facility] 08/16/2023 10:4 7 AM CDT Abiodun Segura II, MD LABORATORY Final R charley Performing Organization Address City/[facility]/ZIP Co de Phone Number [facility] 3 [place] [address], [place] [phone] documented in this encounter Visit Diagnoses Diagnosis Type 2 diabetes mellitus with diabetic neuropathic arthropathy, with long-term current use of insulin ([facility]/HCC) Primary hypertension Unspecified essential hypertension Hypercholesteremia Pure hypercholesterolemia documented in this encounter Additional Health Concerns Assessment Noted Time PHQ-9 Depression Total Score: 0 03/08/19 22 9:30 AM RECONCILER documented as of this encounter Care Teams School Leader Relationship Specialty Start Date End Date Abiodun Segura II, MD [address] [place] [address] PCP - General FAMILY PRACTICE 03/09/21 [place] [address] [place] [address] PODIATRY/SURGERY 05/05/22 documented as of this encounter
--- OUTSIDE RECORDS SUMMARY | 2024-03-03 01:18 | XMS_ITS | Encounter Summary ---
Author Organization [facility] Address [address] [place] [address]. [place] [address] [place] [address] Care Team Providers Care Securities Adviser Name Role Phone Colton SILVEIRA MD, Abiodun Rushing Primary Care Provider Victoriano Langston MD Unavailable [phone] Encounter Details Date Type Department Care Team (Late st Contact Info) Description 06/15/2023 Orders Only [facility] Family Medicine - [place] [address] [place] [address] Abiodun Segura II, MD 100 [place] [address] Social History Tobacco Use Types Packs/Day Years Used Date Smoking Tobacco: Never Smokeless Tobacco: Never Alcohol Use Standard Drinks/Week Comments Not Currently 0 (1 standard drink = 0.6 oz pur e alcohol) few times per year [facility] Utilities Answer Date Recorded In the past 12 months has [email or web address], gas, oil, or water company threatened [...] Assessment Author Status Yes 03/06/2023 3:39 PM Treesa Coe RN Active * Do you have [...] st Contact Info) Description 03/14/2024 11:45 AM CELL SUPPORT OPERATOR Office Visit [facility] [phone] Marvin Mckeon MD Three [facility] [address] [place] [address] 03/20/2024 11:30 AM CELL SUPPORT OPERATOR Office Visit [facility] Medical Group Family Medicine - [place] [address] [place] [phone] Abiodun Segura II, MD 100 [place], [place] [phone] documented as of this encounter Goals Goal [...] Total Score: 0 03/08/19 22 9:30 AM CELL SUPPORT OPERATOR documented as of this encounter Care Teams Securities Adviser Relationship Specialty Start Date End Date Abiodun Segura II, MD [address] [place] [id number] PCP - General FAMILY PRACTICE 03/09/21 [place] [address] [place] [address] PODIATRY/SURGERY 05/05/22 documented as of this encounter
--- OUTSIDE RECORDS SUMMARY | 2024-03-03 01:18 | XMS_ITS | Encounter Summary ---
Author Organization [facility] Address [address] [place] [address]. [place], [place] [address] [place] [address] Care Team Providers Care Application Project Leader Name Role Phone Colton SILVEIRA MD, Abiodun Rushing Primary Care Provider Victoriano Langston MD Unavailable [phone] Encounter Details Date Type Department Care Team (Latest Contact Info) Description 07/30/2023 Scan HEALTH INFO SRVCS Scanned, Doc Med Group Social History Tobacco Use Types Packs/Day Years Used Date Smoking Tobacco: Never Smokeless Tobacco: Never Alcohol Use Standard Drinks/Week Comments Not Currently 0 (1 standard drink = 0.6 oz pur e alcohol) few times per year [facility] Utilities Answer Date Recorded In the past 12 months has [facility] [employer] gas, oil, or water [employer] threatened to shut off services in your [...] Patient Health Questionnaire-2 Score 1 03/05/2023 [facility] of Occupat ional Health - [...] st Contact Info) Description 03/14/2024 11:45 AM TOWBOAT ENGINEER Office Visit [facility] [phone] Marvin Mckeon MD [facility] [address] [place] [address] 03/20/2024 11:30 AM TOWBOAT ENGINEER Office Visit [facility] Family Medicine - [place] 100 [place] [phone] Abiodun Segura II, MD 100 [place] [address] documented as of this encounter Goals Goal Patient Goal Type Associated Problems Recent Progress Patient-Stated? Author Family - family caregiver with be involved in care transitions and discharge planning Lifestyle No Natty Cheek, RN documented as of this encounter Visit Diagnoses Not on filedocumented in this encounter Additional Health Concerns Assessment Noted Time PHQ-9 Depression Total Score: 0 03/08/19 9:30 AM TOWBOAT ENGINEER documented as of this encounter Care Teams Application Project Leader Relationship Specialty Start Date End Date Abioudn Segura II, MD [address] [place] [address] PCP - General FAMILY PRACTICE 03/09/21 [place] [address] [place] [address] PODIATRY/SURGERY 05/05/22 documented as of this encounter
--- OUTSIDE RECORDS SUMMARY | 2024-03-03 01:19 | XMS_ITS | Encounter Summary ---
Author Organization [facility] Address [address] [place] [address]. [place] [address] [place] [address] Care Team Providers Care Geriatric Physician Name Role Phone Colton SILVEIRA MD, Abiodun Rushing Primary Care Provider Victoriano Langston MD Unavailable [phone] Encounter Details Date Type Department Care Team (Late st Contact Info) Description 01/13/2023 Orders Only [facility] Family Medicine - [place] 100 [place] [address] Abiodun Segura II, MD 100 [place] [address] Social History Tobacco Use Types [...] Patient Health Questionnaire-2 Score 0 12/13/2022 [facility] of Occupat ional Health - Occupational [...] MD - 01/13/2023 10:03 AM CST Signed INERY TEACHER documented in this encounter Plan of Treatment Upcoming Encounters Date Type Department Care Team (Late st Contact Info) Description 03/14/2024 11:45 AM MILLINERY TEACHER Office Visit [facility] [phone] Marvin Mckeon MD [address] [facility] [address] [place] [address] 03/20/2024 11:30 AM MILLINERY TEACHER Office Visit [facility] Family Medicine - [place] [address] [place] [phone] Abiodun Segura II, MD [address] [place] [address] documented as of this encounter Goals Goal Patient Goal Type Associated Problems Recent Progress Patient-Stated? Author Family - family caregiver with be involved in care transitions and discharge planning Lifestyle Natty Angeles, RN documented as of this encounter Visit Diagnoses Not on filedocumented in this encounter Additional Health Concerns Assessment Noted Time PHQ-9 Depression Total Score: 0 03/08/19 9:30 AM MILLINERY TEACHER documented as of this encounter Care Teams Geriatric Physician Relationship Specialty Start Date End Date Abiodun Segura II, MD [address] [place] [address] PCP - General FAMILY PRACTICE 03/09/21 [place] [address] [place] [address] PODIATRY/SURGERY 05/05/22 documented as of this encounter
--- OUTSIDE RECORDS SUMMARY | 2024-03-03 01:19 | XMS_ITS | Encounter Summary ---
Author Organization [facility] Address [address] [place] [address]. [place] [address] [place] [address] Care Team Providers Care Structural Steel Painter Name Role Phone Colton SILVEIRA MD, Yasmin Rushing Primary Care Provider Victoriano Langston MD Unavailable [phone] Encounter Details Date Type Department Care Team (Late st Contact Info) Description 02/28/2023 3:15 PM MARKETING OPERATIONS SPECIALIST - 02/28/2023 11:59 PM [facility] Hospital Encounter [facility] Diagnostic Imaging [address] [facility] [address] [place], [place] [phone] Yasmin Valenzuela II, MD [address] [place] [address] Discharge Disposition: Home or Self Care [...] Recorded Patient Health Questionnaire-2 Score 0 12/13/2022 [facility] of Occupat ional [facility] - Occupational Stress Questionnaire Answer Date [...] current use of insulin ([facility] HHS/HCC) 1 strip by Other route 2 (two) times daily. Use as instructed 200 strip 3 3 02/26/19 25 HUMALOG MIX 75/25 (75-25) 100 UNIT/ML SuspensionIndicatio ns:Type 2 diabetes mellitus with retinopathy, with long-term current use of insulin, macular edema presence unspecified, unspecified laterality, unspecified retinopathy severity ([facility]/HCC HHS/HCC) Inject 55-65 Units into the skin see administration instructions. INJECT 65 UNITS SUBCUTANEOUSLY ONCE DAILY IN THE MORNING THEN 55 ONCE DAILY IN THE EVENING 40 mL 1 3 05/14/19 24 Insulin Syringe-Needle U-100 (INSULIN SYRINGE 1CC/30GX5/16 ) 30G X 5/16 1 ML MiscIndications:Typ e 2 diabetes mellitus with diabetic neuropathic arthropathy, with long-term current use of insulin ([facility]/HCC HHS/HCC) Use as directed to inject insulin [...] upcoming appointment and make adjustments if needed. ETING OPERATIONS SPECIALIST documented in this encounter Plan of Treatment Upcoming Encounters Date Type Department Care Team (Late st Contact Info) Description 03/14/2024 11:45 AM MARKETING OPERATIONS SPECIALIST Office Visit [facility] [phone] Marvin Mckeon MD Three [facility] [address] [place] [address] 03/20/2024 11:30 AM MARKETING OPERATIONS SPECIALIST Office Visit [facility] Family Medicine - [place] [phone] Yasmin Valenzuela II, MD [address] [place] [phone] documented as of this encounter Goals Goal Patient Goal Type Associated Problems Recent Progress Patient-Stated? Author Family - family caregiver with be involved in care transitions and discharge planning Lifestyle No Natty Cheek RN documented as of this encounter Procedures Procedure Name Priority Date/Time Associated Diagnosis Comments XR LUMB SPINE AP+LAT ONLY Routine 02/28/2023 3:35 PM MARKETING OPERATIONS SPECIALIST Chronic bilateral low back pain without sciatica XR HIP LT 2V Routine 02/28/2023 3:35 PM MARKETING OPERATIONS SPECIALIST Left hip pain documented in this encounter Results * XR HIP LT 2V (02/28/2023 3:35 PM MARKETING OPERATIONS SPECIALIST) Anatomical Region Laterality Modality Hip Radiographic Shelli ging 03/03/2023 8:57 AM MARKETING OPERATIONS SPECIALIST Impressions 03/03/2023 8:58 AM MARKETING OPERATIONS SPECIALIST IMPRESSION: 1. ??No acute bony abnormality. 2. ??Vascular calcification. Ordered By: YASMIN VALENZUELA II Interpreted By: Cali Parada MD, 03/03/2023 8:57 AM Narrative 03/03/2023 8:58 AM MARKETING OPERATIONS SPECIALIST Examination: Left hip, 2 views Exam time: [...] LUMB SPINE AP+LAT ONLY (02/28/2023 3:35 PM MARKETING OPERATIONS SPECIALIST) Anatomical Region Laterality Modality Spine Radiographic Shelli ging 03/03/2023 8:58 AM MARKETING OPERATIONS SPECIALIST Impressions 03/03/2023 9:00 AM MARKETING OPERATIONS SPECIALIST IMPRESSION: Degenerative disc disease, most notable at L1-L2 and L5-S1, slightly worsened since 2020. Ordered By: YASMIN VALENZUELA II Interpreted By: Cali Parada MD, 03/03/2023 8:58 AM Narrative 03/03/2023 9:00 AM MARKETING OPERATIONS SPECIALIST Examination: X-ray lumbar spine, 2 views. Exam [...] Depression Total Score: 0 03/08/19 9:30 AM MARKETING OPERATIONS SPECIALIST documented as of this encounter Care Teams Structural Steel Painter Relationship Specialty Start Date End Date Yasmin Valenzuela II, MD 100 [place] [address] PCP - General FAMILY PRACTICE 03/09/21 [place] [address] [place] [address] PODIATRY/SURGERY 05/05/22 documented as of this encounter
--- OUTSIDE RECORDS SUMMARY | 2024-03-03 01:19 | XMS_ITS | Encounter Summary ---
Author Organization [facility] Address [address] [place] [address]. [place] [address] [place] [address] Care Team Providers Care Jewel Bearing Polisher Name Role Phone Colton SILVEIRA MD, Abiodun Rushing Primary Care Provider Victoriano Langston MD Unavailable [phone] Encounter Details Date Type Department Care Team [...] Recorded Patient Health Questionnaire-2 Score 0 12/13/2022 [facility] of Occupat ional [...] st Contact Info) Description 03/14/2024 11:45 AM VEGETABLE FARM MANAGER Office Visit [facility]-[address] [phone] Marvin Mckeon MD [facility] [address] [place] [address] 03/20/2024 11:30 AM VEGETABLE FARM MANAGER Office Visit [facility] Medical Group Family Medicine - [place] 100 [place] [phone] Abiodun Segura II, MD [address] [place] [address] documented as of this encounter Goals Goal Patient Goal Type Associated Problems Recent Progress Patient-Stated? Author Family - family caregiver with be involved in care transitions and discharge planning Lifestyle No Natty Cheek, RN documented as of this encounter Visit Diagnoses Not on filedocumented in this encounter Additional Health Concerns Assessment Noted Time PHQ-9 Depression Total Score: 0 03/08/19 22 9:30 AM VEGETABLE FARM MANAGER documented as of this encounter Care Teams Jewel Bearing Polisher Relationship Specialty Start Date End Date Abiodun Segura II, MD 100 [place] [address] PCP - General FAMILY PRACTICE 03/09/21 [place] [address] [place] [address] PODIATRY/SURGERY 05/05/22 documented as of this encounter
--- OUTSIDE RECORDS SUMMARY | 2024-03-03 01:19 | XMS_ITS | Encounter Summary ---
Author Organization [facility] Address [address] [place] [address]. [place] [address] [place] [address] Care Team Providers Care Store Sales Manager Name Role Phone Colton SILVEIRA MD, Yasmin Rushing Primary Care Provider Victoriano Langston MD Unavailable [phone] Reason for Visit * Reason Comments TCM Patient presents for hopital follow up for abdominal pain and recurrent UTI Encounter Details Date Type Department Care Team (Late st Contact Info) Description 03/19/2023 11:10 AM EVENT COORDINATOR MARKETING AND SALES Office Visit [facility] Family [place] [address] Yasmin Valenzuela II, MD [address] [place] [address] TCM (Patient presents for hopital follow up for abdominal pain and recurrent UTI) Social History Tobacco Use Types Packs/Day Years Used Date Smoking Tobacco: Never Smokeless Tobacco: Never Tobacco Cessation:Counseling Given: No Alcohol Use Standard Drinks/Week Comments Not Currently 0 (1 standard drink = 0.6 oz pur e alcohol) few times per year [facility] Utilities Answer Date Recorded In [...] in a fdc (including now)? No 03/06/2023 Comments No Sex and Gender Information Value Date Recorded Sex Assigned at Female 12/17/2021 2:07 AM CDT Legal Sex Female 2:58 PM CDT Gender Identity Female 12/17/2021 2:07 AM CDT Sexual Orientation Straight 12/17/2021 2: 07 AM CDT documented as of this encounter Last Filed Vital Signs Vital Sign Reading Time Taken Comments Blood Pressure 144/76 03/19/2023 11:37 AM EVENT COORDINATOR MARKETING AND SALES Pulse 88 03/19/2023 11:11 AM EVENT COORDINATOR MARKETING AND SALES Temperature 36.8 ??C (98.3 ??F) 03/19/2023 11:[address] Respiratory Rate - - Oxygen Saturation 98% 03/19/2023 11:11 AM EVENT COORDINATOR MARKETING AND SALES Inhaled Oxygen Concentration - - Weight 89.8 kg (198 lb) 03/19/2023 11:11 AM EVENT COORDINATOR MARKETING AND SALES Height - - Body Mass Index 31.96 03/05/2023 1:02 PM EVENT COORDINATOR MARKETING AND SALES documented in this encounter Functional Status * Are you deaf or do you have serious difficulty hearing Answer Date of Assessment Author Status No 03/06/2023 3:39 PM EVENT COORDINATOR MARKETING AND SALES Teresa Amaya RN Active * Are you blind or do you have serious difficulty seeing, even when wearing glasses? Answer Date of Assessment Author Status Yes 03/06/2023 3:39 PM EVENT COORDINATOR MARKETING AND SALES Teresa Amaya RN Active * Do you have serious difficulty walking or climbing stairs? Answer Date of Assessment Author Status Yes 03/06/2023 3:39 PM EVENT COORDINATOR MARKETING AND SALES Teresa Amaya RN Active * Do you [...] from the original note were not included. [facility] [address] [address] TCM VISIT Encounter Date: 03/19/2023 Chief Complaint: TCM (Patient presents for hopital follow up for abdominal pain and recurrent UTI) History of Present Illness: 52-year-old female with history of diabetes, hypertension, hyperlipidemia, Charcot foot, left toe amputation, constipation, blindness of right eye, and history of gastric ulcer who was recently admitted to [facility] for urinary tract infection with known history of right kidney disease making her prone to pyelonephritis and ascending UTIs. Patient developed a rash with ceftriaxone and still has itching. Patient was discharged on linezolid which she just picked up today. Patientwas admitted to [facility] from March 05 through March 09, [...] Charcot foot due to diabetes mellitus (HHS/HCC) ([facility]/HCC) Hot flashes due to menopause Chest pain Diabetic foot infection (HHS/HCC) ([facility]/HCC) Osteomyelitis ([facility]/HCC) Soft tissue infection of foot Necrotic toes (HHS/HCC) ([facility]/HCC) Acquired absence of other left toe(s) ([facility]/HCC) ([facility]/HCC) Atherosclerosis of [place] arteries of extremities with intermittent claudication, bilateral legs ([facility]/HCC) Intractable abdominal pain Abdominal pain Intractable vomiting Peptic ulcer Epigastric abdominal pain UTI (urinary tract infection) Past Medical History: Diagnosis Date Arthritis Charcot foot due to diabetes mellitus (HHS/HCC) ([facility]/HCC) LEFT FOOT Constipation COVID-19 Diabetes mellitus (HHS/HCC) ([facility]/HCC) Diabetic neuropathy (HHS/HCC) ([facility]) Gastric ulcer High cholesterol Hypertension Kidney [...] min Stress: No Stress Concern Present (03/06/2023) [employer] [place] [facility] - Occupational Stress Questionnaire [...] with long- term current use of insulin ([facility]) ([facility]) HEMOGLOBIN, GLYCOSYLATED 7. Hypercholesteremia LIPID PANEL [...] with long- term current use of insulin ([facility]/HCC) ([facility]) Patient reports that her home glucose [...] the day of the encounter. This includes tejw-dk-omey and wvw-bfmv-dq-face time I provided on the day of the encounter & excludes time spent performing separately reportable services. There are no discontinued medications. YASMIN VALENZUELA MD 03/19/2023 Portions of this note were dictated using [employer] speech recognition software. Occasional wrong wordor sound-alike substitutions may have occurred due to the inherent limitations of voice recognition software. Please read the chart carefully and recognize, using context, where the substitutions may have occurred. T COORDINATOR MARKETING AND SALES * Yasmin Valenzuela II, MD - 03/19/2023 11:10 AM CST Patient called with results. She will complete current antibiotics and follow up if symptoms return. Follow up as directed. T COORDINATOR MARKETING AND SALES documented in this encounter Plan of Treatment Upcoming Encounters Date Type Department Care Team (Late st Contact Info) Description 03/14/2024 11:45 AM EVENT COORDINATOR MARKETING AND SALES Office Visit [facility] [address] Marvin Mckeon MD [address] [facility] [address] [place], [place] [phone] 03/20/2024 11:30 AM EVENT COORDINATOR MARKETING AND SALES Office Visit [facility] Family Medicine - [place] [address] [place] [phone] Yasmin Valenzuela II, MD [address] [place], [place] [phone] Scheduled Orders Name Type Priority Associated Diagnoses Orde r Schedule HEMOGLOBIN, GLYCOSYLATED Lab Routine Type 2 diabetes mellitus with diabetic neuropathic arthropathy, with long-term current use of insulin ([facility]) Expected: 03/19/2023 (Approximate), Expires: 03/19/2024 CBC [...] URINE BACTERIA CULTURE Routine 03/19/2023 12:00 PM EVENT COORDINATOR MARKETING AND SALES Cystitis URINALYSIS AUTO DIP Routine 03/19/2023 Urinary frequency documented in this encounter Results * (ABNORMAL) CULTURE URINE (03/19/2023 12:00 PM EVENT COORDINATOR MARKETING AND SALES) CULTURE RESULT (A) [facility] Comment: ??CULTURE, URINE, ROUTINE ?Micro Number: ?[id number] ??Test Status: ? Final ??Specimen Source: ?? [...] CATCH PROCEDURE / Unknown 03/19/2023 12:00 PM EVENT COORDINATOR MARKETING AND SALES 03/20/2023 12:06 AM EVENT COORDINATOR MARKETING AND SALES Narrative Resulting Agency Comment Performing Organization Information: ?Site ID: [id number] ?[facility] ?Address: [facility] [place] [address] ?Director: Robert Mendez Yasmin Valenzuela II, MD MICROBIOLOGY - GENERAL ORDERABLES Final Result [facility] [address] [place] [address], * (ABNORMAL) URINALYSIS AUTO DIP (03/19/2023) COLOR (U) PALE YELLOW YELLOW [facility],[place] TRANSPARENCY CLOUDY(A) CLEAR [facility] GLUCOSE (U) 1+(A) NEGATIVE MG/DL [facility],[place] BILIRUBIN (U) NEGATIVE NEGATIVE [facility],[place] KETONES MG/DL (U) NEGATIVE NEGATIVE MG/DL [facility],[place] SPECIFIC GRAVITY (U) 1.020 1.001 - 1.035 [facility],[place] BLOOD (U) TRACE (Non Hemolyzed, Intact)(A) NEGATIVE [facility],[place] U PH 6.0 5.0 - 9.0 [facility],[place] PROTEIN (U) 2+ (100)(A) NEGATIVE mg/dL [facility],[place] UROBILINOGEN 0.2 0.2 - 1.0 EU/dL = mg/dL [facility],[place] NITRITES NEGATIVE NEGATIVE MG/DL [facility],[place] LEUKOCYTES (U) 3+ (LARGE)(A) NEGATIVE [facility],[place] URINE SPECIMEN OBTAINED BY CLEAN CATCH PROCEDURE / Unknown 03/19/2023 Yasmin Valenzuela II, MD URINE ORDERABLES Final Result [facility],[place] [address] [place] [address], documented in this encounter Visit Diagnoses Diagnosis Urinary frequency- Primary Cystitis Cystitis, unspecified Renal disorder Unspecified disorder of kidney and ureter Allergic drug rash Dermatitis due to drugs and medicines taken internally Primary hypertension Unspecified essential hypertension Type 2 diabetes mellitus with diabetic neuropathic arthropathy, with long-term current use of insulin ([facility]) Hypercholesteremia Pure hypercholesterolemia documented in this encounter Additional Health Concerns Assessment Noted Time PHQ-9 Depression Total Score: 0 03/08/19 22 9:30 AM EVENT COORDINATOR MARKETING AND SALES documented as of this encounter Care Teams Store Sales Manager Relationship Specialty Start Date End Date Yasmin Valenzuela II, MD [address] [place] [id number] PCP - General FAMILY PRACTICE 03/09/21 [place] [address] [place] [address] PODIATRY/SURGERY 05/05/22 documented as of this encounter
--- OUTSIDE RECORDS SUMMARY | 2024-03-03 01:19 | XMS_ITS | Encounter Summary ---
Author Organization [facility] Address [address] [place] [address]. [place] [address] [place] [address] Care Team Providers Care Sharepoint Application Developer Name Role Phone Colton SILVEIRA MD, Yasmin Rushing Primary Care Provider Victoriano Langston MD Unavailable [phone] Reason for Visit * Reason Onset Date Comments Refill Request 03/09/2023 Encounter Details Date Type Department Care Team (Late st Contact Info) Description 03/09/2023 Telephone [facility] Family Medicine - [place] [address] [place] [address] Yasmin Valenzuela II, MD [address] [place] [address] Refill Request Social History Tobacco Use Types Packs/Day Years Used Date Smoking Tobacco: Never Smokeless Tobacco: Never Alcohol Use Standard Drinks/Week Comments Not Currently 0 (1 standard drink = 0.6 oz pur e alcohol) few times per year [facility] Utilities Answer Date Recorded In the past 12 months has e Isabella [place], gas, oil, or water [employer] threatened to shut off services in [...] Recorded Patient Health Questionnaire-2 Score 1 03/05/2023 [facility] - Occupational [...] in this encounter Progress Notes * Conchita Manclila - 03/09/2023 9:50 AM CST Refill request: Lena Mcneal a patient of YASMIN VALENZUELA MD requests a refill of Insulin Syringe-Needle U-100 (INSULIN SYRINGE 1CC/30GX5/16 ) 30G X 5/16 1 ML Misc - 70 in the morning and 60 at bedtime The patient would like this sent to the following pharmacy: [facility] [address] [place] [address] [facility] [address] [place] [address] The next office visit: Next visit with YASMIN VALENZUELA II in FAMILY PRACTICE is on: 05/22/2023 in [facility] [place] [facility] The last office visit: Last visit with YASMIN VALENZUELA II in FAMILY PRACTICE was on: 03/05/2023 in [facility] [place] [facility] Additional Information: ICAL STATISTICAL PROGRAMMER documented in this encounter Plan of Treatment Upcoming Encounters Date Type Department Care Team (Late st Contact Info) Description 03/14/2024 11:45 AM CLINICAL STATISTICAL PROGRAMMER Office Visit [facility] [phone] Marvin Mckeon MD [facility] [address] [place] [address] 03/20/2024 11:30 AM CLINICAL STATISTICAL PROGRAMMER Office Visit [facility] Family Medicine - [place] [address] [place] [phone] Yasmin Valenzuela II, MD [address] [place] [address] documented as of this encounter Goals Goal Patient Goal Type Associated Problems Recent Progress Patient-Stated? Author Family - family caregiver with be involved in care transitions and discharge planning Lifestyle No Natty Cheek, RN documented as of this encounter Visit Diagnoses Diagnosis Type 2 diabetes mellitus with diabetic neuropathic arthropathy, with long-term current use of insulin ([facility]) documented in this encounter Additional Health Concerns Assessment Noted Time PHQ-9 Depression Total Score: 0 03/08/19 22 9:30 AM CLINICAL STATISTICAL PROGRAMMER documented as of this encounter Care Teams Sharepoint Application Developer Relationship Specialty Start Date End Date Yasmin Valenzuela II, MD [address] [place] [address] PCP - General FAMILY PRACTICE 03/09/21 [place] [address] [place] [address] PODIATRY/SURGERY 05/05/22 documented as of this encounter
--- OUTSIDE RECORDS SUMMARY | 2024-03-03 01:19 | XMS_ITS | Encounter Summary ---
Author Organization [facility] Address [address] [place] [address]. [place] [address] [place] [address] Care Team Providers Care Installation Drafter Name Role Phone Colton SILVEIRA MD, Abiodun Rushing Primary Care Provider Victoriano Langston MD Unavailable [phone] Encounter Details Date Type Department Care Team [...] Recorded Patient Health Questionnaire-2 Score 0 12/13/2022 [facility]at ional [facility] - Occupational [...] AM AIRPLANE AND ENGINE INSPECTOR Office Visit [facility] [phone] Marvin Mckeon MD [facility] [address] [place] [address] 03/20/2024 11:30 AM AIRPLANE AND ENGINE INSPECTOR Office Visit [facility] Family Medicine - [place] [address] [place] [phone] Abiodun Segura II, MD [address] [place] [id number] documented as of this encounter Goals Goal Patient Goal Type Associated Problems Recent Progress Patient-Stated? Author Family - family caregiver with be involved in care transitions and discharge planning Lifestyle No Natty Cheek, RN documented as of this encounter Visit Diagnoses Not on filedocumented in this encounter Additional Health Concerns Assessment Noted Time PHQ-9 Depression Total Score: 0 03/08/19 22 9:30 AM AIRPLANE AND ENGINE INSPECTOR documented as of this encounter Care Teams Installation Drafter Relationship Specialty Start Date End Date Abiodun Segura II, MD [address] [place] [address] PCP - General FAMILY PRACTICE 03/09/21 [place] [address] [place] [address] PODIATRY/SURGERY 05/05/22 documented as of this encounter
--- OUTSIDE RECORDS SUMMARY | 2024-03-03 01:19 | XMS_ITS | Encounter Summary ---
Author Organization [facility] Address [address] [place] [address]. [place] [address] [place] [address] Care Team Providers Care Crystal Grinder Name Role Phone Colton SILVEIRA MD, Abiodun Rushing Primary Care Provider Victoriano Langston MD Unavailable [phone] Encounter Details Date Type Department Care Team (Late st Contact Info) Description 02/03/2023 10:30 AM MOTOR POLARIZER - 02/03/2023 11:59 PM [facility] Hospital Encounter [facility] [place], [place] [id number] Abiodun Segura II, MD [address] [place] [address] Discharge Disposition: Home or Self Care [...] 0 12/13/2022 [facility]at [facility] - Occupational Stress Questionnaire Answer [...] arthropathy, with long-term current use of insulin ([facility] HHS/HCC) 1 strip by Other route 2 (two) times daily. Use as instructed 200 strip 3 3 02/26/19 25 HUMALOG MIX 75/25 (75-25) 100 UNIT/ML SuspensionIndicatio ns:Type 2 diabetes mellitus with retinopathy, with long-term current use of insulin, macular edema presence unspecified, unspecified laterality, unspecified retinopathy severity ([facility]/HCC HHS/HCC) Inject 55-65 Units into the skin see administration instructions. INJECT 65 UNITS SUBCUTANEOUSLY ONCE DAILY IN THE MORNING THEN 55 ONCE DAILY IN THE EVENING 40 mL 1 3 05/14/19 24 Insulin Syringe-Needle U-100 (INSULIN SYRINGE 1CC/30GX5/16 ) 30G X 5/16 1 ML MiscIndications:Typ e 2 diabetes mellitus with diabetic neuropathic arthropathy, with long-term current use of insulin ([facility]/HCC HHS/HCC) Use as directed to inject insulin [...] upcoming appointment and make adjustments if needed. R POLARIZER documented in this encounter Plan of Treatment Upcoming Encounters Date Type Department Care Team (Late st Contact Info) Description 03/14/2024 11:45 AM MOTOR POLARIZER Office Visit [facility] [address] Marvin Mckeon MD [address] [facility] [address] [place] [address] 03/20/2024 11:30 AM MOTOR POLARIZER Office Visit [facility] Family Medicine - [place] [phone] Abiodun Segura II, MD [address] [place] [address] documented as of this encounter Goals Goal Patient Goal Type Associated Problems Recent Progress Patient-Stated? Author Family - family caregiver with be involved in care transitions and discharge planning Lifestyle Natty Angeles, RN documented as of this encounter Procedures Procedure Name Priority Date/Time Associated Diagnosis Comments HEMOGLOBIN, GLYCOSYLATED Routine 02/03/2023 10:42 AM MOTOR POLARIZER Type 2 diabetes mellitus with diabetic neuropathic arthropathy, with long-term current use of insulin ([facility]) COMPREHENSIVE METABOLIC PANEL Routine 02/03/2023 10:42 AM MOTOR POLARIZER Primary hypertension LIPID PANEL Routine 02/03/2023 10:42 AM MOTOR POLARIZER Hypercholesteremia CBC W/DIFF AUTOMATED Routine 02/03/2023 10:42 AM MOTOR POLARIZER Primary hypertension documented in this encounter Results * (ABNORMAL) LIPID PANEL (02/03/2023 10:42 AM MOTOR POLARIZER) CHOLESTEROL 187 <200 MG/DL 02/03/2023 11:44 AM [facility] TRIGLYCERIDES 242(H) <150 MG/DL 02/03/2023 11:44 AM [facility] HDL 43 >40.0 MG/DL 02/03/2023 11:44 AM [facility] LDL (CALCULATED) 96 <100 MG/DL 02/03/2023 11:44 AM [facility] NON HDL CHOLESTEROL 144(H) <130 MG/DL 02/03/2023 11:44 AM [facility] CHOL/HDL RATIO 4.3 0.0 - 4.5 02/03/2023 11:44 AM [facility] VLDL CALCULATION 48 5 - 55 MG/DL 02/03/2023 11:44 AM [facility] LIPID INTERPRETATION 02/03/2023 11:44 AM MOTOR POLARIZER [facility] Comment: NIH CONCENSUS REPORT [...] ? >=160 ?>=130 02/03/2023 10:4 2 AM MOTOR POLARIZER us Abiodun Segura II, MD LABORATORY Final R esult [facility] [address] [place] [address], [place] [phone] * (ABNORMAL) COMPREHENSIVE METABOLIC PANEL (02/03/2023 10:42 AM MOTOR POLARIZER) [facility] GLUCOSE 99 70 - 99 MG/DL 02/03/2023 11:44 AM [facility] BUN 17 7 - 18 MG/DL 02/03/2023 11:44 AM [facility] CREATININE S/P/B 1.11(H) 0.55 - 1.02 MG/DL 02/03/2023 11:44 AM [facility] SODIUM S/P/B 138 136 - 145 MMOL/L 02/03/2023 11:44 AM [facility] POTASSIUM S/P/B 3.6 3.5 - 5.1 MMOL/L 02/03/2023 11:44 AM [facility] CHLORIDE S/P/B 105 100 - 108 MMOL/L 02/03/2023 11:44 AM [facility] CO2 28.7 21 - 32 MMOL/L 02/03/2023 11:44 AM [facility] CALCIUM S/P/B 9.3 8.5 - 10.1 MG/DL 02/03/2023 11:44 AM [facility] BILIRUBIN TOTAL S/P/B 0.5 0.2 - 1.2 MG/DL 02/03/2023 11:44 AM [facility] Comment: THIS ASSAY IS NOT RECOMMENDED FOR PATIENTS UNDERGOING TREATMENT WITH ELTROMBOPAG DUE TO THE POTENTIAL FOR FALSELY ELEVATED RESULTS. TOTAL PROTEIN S/P/B 8.9(H) 6.4 - 8.2 G/DL 02/03/2023 11:44 AM [facility] ALBUMIN S/P/B 3.4 3.4 - 5.0 G/DL 02/03/2023 11:44 AM [facility] AST 24 15 - 37 U/L 02/03/2023 11:44 AM [facility] ALT 30 14 - 55 U/L 02/03/2023 11:44 AM [facility] ALKALINE PHOSPHATASE S/P/B 155(H) 50 - 136 U/L 02/03/2023 11:44 AM [facility] ANION GAP 4.3(L) 5 - 15 MMOL/L 02/03/2023 11:44 AM [facility] BUN CREATININE RATIO 15.3 6 - 26 02/03/2023 11:44 AM [facility] A/G RATIO 0.6(L) 1.0 - 2.0 RATIO 02/03/2023 11:44 AM [facility] GFR ESTIMATE 60(L) >90 ML/MIN/1.7 3 M2 02/03/2023 11:44 AM [facility] Comment: NOTE: eGFR is not calculated for patients <18 years of age. This is an estimated GFR calculation using the new CKD EPI creatinine equation without race and so does not require a correction factor for race. This estimated GFR should not be used for calculating drug doses. 02/03/2023 10:4 2 AM [facility] Abiodun Segura II, MD LABORATORY Final R esult [facility] [address] [place] [address], * CBC W/DIFF AUTOMATED (02/03/2023 10:42 AM MOTOR POLARIZER) WBC 8.8 4.5 - 11.0 x10'3/uL 02/03/2023 11:05 AM [facility] RBC 4.25 4.20 - 5.40 x10'6/uL 02/03/2023 11:05 AM [facility] HGB 12.8 12.0 - 16.0 G/DL 02/03/2023 11:05 AM [facility] HCT 38.6 38.0 - 48.0 % 02/03/2023 11:05 AM [facility] MCV 90.8 81.0 - 99.0 FL 02/03/2023 11:05 AM [facility] MCH 30.1 27.0 - 31.0 PG 02/03/2023 11:05 AM [facility] MCHC 33.2 32.0 - 36.0 G/DL 02/03/2023 11:05 AM [facility] RDW 13.1 11.5 - 14.5 % 02/03/2023 11:05 AM [facility] PLT 288 130 - 400 x10'3/uL 02/03/2023 11:05 AM [facility] MPV 11.5 9.3 - 12.2 FL 02/03/2023 11:05 AM [facility] DIFFERENTIAL TYPE AUTOMATED DIFFERENTIAL 02/03/2023 11:05 AM [facility] NEUTROPHILS % 61.5 % 02/03/2023 11:05 AM [facility] LYMPHOCYTES % 32.2 % 02/03/2023 11:05 AM [facility] MONOCYTES % 4.5 % 02/03/2023 11:05 AM [facility] EOSINOPHILS 1.0 % 02/03/2023 11:05 AM [facility] BASOPHILS 0.6 % 02/03/2023 11:05 AM [facility] IMMATURE GRANS % 0.2 % 02/04/20 11:05 AM [facility] ABS. NEUTROPHILS TOTAL 5.39 1.80 - 7.70 x10'3/uL 02/03/2023 11:05 AM [facility] ABS. LYMPHOCYTES 2.82 1.00 - 4.80 x10'3/uL 02/03/2023 11:05 AM [facility] ABS. MONOCYTES 0.39 0.24 - 0.86 x10'3/uL 02/03/2023 11:05 AM [facility] ABS. EOSINOPHILS 0.09 0.04 - 0.36 x10'3/uL 02/03/2023 11:05 AM [facility] ABS. BASOPHILS 0.05 0.01 - 0.08 x10'3/uL 02/03/2023 11:05 AM [facility] ABS. IMMATURE GRANULOCYTES 0.02 0.00 - 0.49 x10'3/uL 02/03/2023 11:05 AM [facility] 02/03/2023 10:4 2 AM MOTOR POLARIZER Abiodun Segura II, MD LABORATORY Final R esult [facility] [address] [place] [address], * (ABNORMAL) HEMOGLOBIN, GLYCOSYLATED (02/03/2023 10:42 AM MOTOR POLARIZER) HGB A1C 9.1(H) <5.7 % 02/03/2023 11:32 AM [facility] Comment: ADA GUIDELINES 2010 5.7 TO 6.4% INCREASED RISK OF DIABETES > OR = 6.5% CONSISTENT WITH DIABETES ESTIMATED AVG GLUCOSE 214 mg/dL 02/03/2023 11:32 AM MOTOR POLARIZER [facility] 02/03/2023 10:4 2 AM MOTOR POLARIZER Abiodun Segura II, MD LABORATORY Final R esult [facility] [address] [place] [address], documented in this encounter Visit Diagnoses Diagnosis Type 2 diabetes mellitus with diabetic neuropathic arthropathy, with long-term current use of insulin ([facility]) Primary hypertension Unspecified essential hypertension Hypercholesteremia Pure hypercholesterolemia documented in this encounter Additional Health Concerns Assessment Noted Time PHQ-9 Depression Total Score: 0 03/08/19 9:30 AM MOTOR POLARIZER documented as of this encounter Care Teams Crystal Grinder Relationship Specialty Start Date End Date Abiodun Segura II, MD [address] [place] [address] PCP - General FAMILY PRACTICE 03/09/21 [place] [address] [place] [address] PODIATRY/SURGERY 05/05/22 documented as of this encounter
--- OUTSIDE RECORDS SUMMARY | 2024-03-03 01:19 | XMS_ITS | Encounter Summary ---
Author Organization [facility] Address [address] [place] [address]. [place] [address] [place] [address] Care Team Providers Care Apricot Packer Name Role Phone Colton SILVEIRA MD, Abiodun Rushing Primary Care Provider Victoriano Langston MD Unavailable [phone] Reason for Visit * Reason Onset Date Comments Medication Problem 03/09/2023 Encounter Details Date Type Department Care Team (Late st Contact Info) Description 03/09/2023 Telephone [facility] Family Medicine - [place] [address] [place] [address] Abiodun Segura II, MD [address] [place] [address] Medication Problem Social History Tobacco Use Types Packs/Day Years Used Date Smoking Tobacco: Never Smokeless Tobacco: Never Alcohol Use Standard Drinks/Week Comments Not Currently 0 (1 standard drink = 0.6 oz pur e alcohol) few times per year [facility] Utilities Answer Date Recorded In the past 12 months has e [email or web address], gas, oil, or water company threatened to [...] Recorded Patient Health Questionnaire-2 Score 1 03/05/2023 [facility] Occupat ional Health - Occupational [...] okay to give the 31 G needles DDED SOFTWARE PROGRAMMER * Cristela Pereira - 03/09/2023 10:59 AM CST [facility] pharmacy needs a call back to discuss Insulin Syringe- Needle U-100 (INSULIN SYRINGE 1CC/30GX5/16 ) 30G X 516 1 ML Misc. They are not able to get the 30g in and would like to give patient 31g if that is good. Please [phone] DDED SOFTWARE PROGRAMMER documented in this encounter Plan of Treatment Upcoming Encounters Date Type Department Care Team (Late st Contact Info) Description 03/14/2024 11:45 AM EMBEDDED SOFTWARE PROGRAMMER Office Visit [facility] [phone] Marvin Mckeon MD [address] [facility] [address] [facility] [place], [place] [phone] 03/20/2024 11:30 AM EMBEDDED SOFTWARE PROGRAMMER Office Visit [facility] Family Medicine - [place] [address] [place] [phone] Abiodun Segura II, MD [address] [place] [address] documented as of this encounter Goals Goal Patient Goal Type Associated Problems Recent Progress Patient-Stated? Author Family - family caregiver with be involved in care transitions and discharge planning Lifestyle No Natty Cheek, RN documented as of this encounter Visit Diagnoses Not on filedocumented in this encounter Additional Health Concerns Assessment Noted Time PHQ-9 Depression Total Score: 0 03/08/19 22 9:30 AM EMBEDDED SOFTWARE PROGRAMMER documented as of this encounter Care Teams Apricot Packer Relationship Specialty Start Date End Date Abiodun Segura II, MD [address] [place] [address] PCP - General FAMILY PRACTICE 03/09/21 [place] [address] [place] [address] PODIATRY/SURGERY 05/05/22 documented as of this encounter
--- OUTSIDE RECORDS SUMMARY | 2024-03-03 01:19 | XMS_ITS | Encounter Summary ---
Author Organization [facility] Address [address] [place] [address]. [place], [place] [phone] [place] [address] Care Team Providers Care Weatherization Installer Name Role Phone Colton SILVEIRA MD, Abiodun Rushing Primary Care Provider Victoriano Langston MD Unavailable [phone] Encounter Details Date Type Department Care Team (Latest Contact Info) Description 03/05/2023 Travel Social History Tobacco Use Types Packs/Day Years Used Date Smoking Tobacco: Never Smokeless Tobacco: Never Alcohol Use Standard Drinks/Week Comments Not Currently 0 (1 standard drink = 0.6 oz pur e alcohol) few times per year [facility] Utilities Answer Date Recorded In the past 12 months has e [employer], gas, oil, or water [employer] threatened to shut off services in your [...] Recorded Patient Health Questionnaire-2 Score 1 03/05/2023 [facility] of Occupat ional Health - [...] st Contact Info) Description 03/14/2024 11:45 AM PAPER RECLAIMING MACHINE OPERATOR Office Visit [facility] [phone] Marvin Mckeon MD [facility] [address] [place] [address] 03/20/2024 11:30 AM PAPER RECLAIMING MACHINE OPERATOR Office Visit [facility] Family Medicine - [place] [address] [place] [phone] Abiodun Segura II, MD [address] [place] [address] documented as of this encounter Goals Goal Patient Goal Type Associated Problems Recent Progress Patient-Stated? Author Family - family caregiver with be involved in care transitions and discharge planning Lifestyle No Natty Cheek, RN documented as of this encounter Visit Diagnoses Not on filedocumented in this encounter Additional Health Concerns Assessment Noted Time PHQ-9 Depression Total Score: 0 03/08/19 9:30 AM PAPER RECLAIMING MACHINE OPERATOR documented as of this encounter Care Teams Weatherization Installer Relationship Specialty Start Date End Date Abiodun Segura II, MD [address] [place] [address] PCP - General FAMILY PRACTICE 03/09/21 [place] [address] [place] [address] PODIATRY/SURGERY 05/05/22 documented as of this encounter
--- OUTSIDE RECORDS SUMMARY | 2024-03-03 01:19 | XMS_ITS | Encounter Summary ---
Author Organization [facility] Address [address] [place] [address]. [place] [address] [place] [address] Care Team Providers Care Ballet Teacher Name Role Phone Colton SILVEIRA MD, Abiodun Rushing Primary Care Provider Victoriano Langston MD Unavailable [phone] Encounter Details Date Type Department Care Team (Late st Contact Info) Description 03/01/2023 Orders Only [facility] Family Medicine - [place] [address] [place] [address] Abiodun Segura II, MD [address] [place] [address] Social History Tobacco Use Types [...] Recorded Patient Health Questionnaire-2 Score 0 12/13/2022 [facility] of Occupat [...] Contact Info) Description 03/14/2024 11:45 AM SUPERVISOR STAVE CUTTING Office Visit [facility] [phone] Marvin Mckeon MD [facility] [address] [place] [address] 03/20/2024 11:30 AM SUPERVISOR STAVE CUTTING Office Visit [facility] Family Medicine - [place] [address] [place] [address] Abiodun Segura II, MD [address] [place] [address] documented as of this encounter Goals Goal [...] Total Score: 0 03/08/19 22 9:30 AM SUPERVISOR STAVE CUTTING documented as of this encounter Care Teams Ballet Teacher Relationship Specialty Start Date End Date Abiodun Segura II, MD [address] [place] [address] PCP - General FAMILY PRACTICE 03/09/21 [place] [address] [place] [address] PODIATRY/SURGERY 05/05/22 documented as of this encounter
--- OUTSIDE RECORDS SUMMARY | 2024-03-03 01:19 | XMS_ITS | Encounter Summary ---
Author Organization [facility] Address [address] [place] [address]. [place], [place] [id number] [place] [address] Care Team Providers Care Vest Busheler Name Role Phone Colton SILVEIRA MD, Yasmin Rushing Primary Care Provider Victoriano Langston MD Unavailable [phone] Reason for Referral * Imaging (Emergency) - New Request Specialty Diagnoses / Procedures Referred By Contac t Referred To Contact RADIOLOGY Procedures CT HEAD WO CON Wanda Langston APRN [address] [place] [address] Phone: tel: fax: Referral ID Status Reason Start Date Expiration Date V isits Requested Visits Authorized [id number] New Request 03/05/2023 03/05/2024 1 1 AGING CLERK * Imaging (Emergency) - New Request Specialty Diagnoses / Procedures Referred By Contac t Referred To Contact RADIOLOGY Procedures CT ABD+PEL W IV CON ONLY Yasmin Tomlin PA-C [address] [place] [address] Phone: tel: fax: Referral ID Status Reason Start Date Expiration Date V isits Requested Visits Authorized [id number] New Request 03/05/2023 03/05/2024 1 1 AGING CLERK Reason for Visit * Reason Comments Abdominal Pain * Auth/Cert (Routine) Specialty Diagnoses / Procedures Referred By Lyla t Referred To Contact Diagnoses UTI (urinary tract infection) Procedures NONE Referral ID Status Reason Start Date Expiration Date Visits Re quested Visits Authorized [id number] 1 1 Encounter Details Date Type Department Care Team (Late st Contact Info) Description 03/05/2023 1:38 PM PACKAGING CLERK - 03/09/2023 2:00 PM PACKAGING CLERK Hospital Encounter [facility] Med/Surg 3rd [place] [address] Janneth Perrin PA [address] [place] [address] Heidi Jolly MD 1 [place], [place] [id number] Mendy Mirza MD 1 [place] [address] [phone] (Work) Ramesh Dexter, DO [address] [phone] Major Edmond MD 1 [place] [address] [phone] (Work) Abdominal Pain Discharge Disposition: Home or Self Care (Routine Discharge) Social History Tobacco Use Types Packs/Day Years Used Date Smoking Tobacco: Never Smokeless Tobacco: Never Tobacco Cessation:Counseling Given: Not Answered Alcohol Use Standard Drinks/Week Comments Not Currently 0 (1 standard drink = 0.6 oz pur e alcohol) few times per year [facility] Utilities Answer Date Recorded In the past 12 months has [email or web address], gas, oil, or water [employer] threatened to shut off services in your [...] Health Questionnaire-2 Score 1 03/05/2023 [facility] - Occupational Stress Questionnaire [...] in a jail (including now)? No 03/06/2023 Comments No Sex and Gender Information Value Date Recorded Sex Assigned at Female 12/17/2021 2:07 AM CDT Legal Sex Female 2:58 PM CDT Gender Identity Female 12/17/2021 2:07 AM CDT Sexual Orientation Straight 12/17/2021 2: 07 AM CDT documented as of this encounter Last Filed Vital Signs Vital Sign Reading Time Taken Comments Blood Pressure 128/77 03/09/2023 11:45 AM PACKAGING CLERK Pulse 74 03/09/2023 11:45 AM PACKAGING CLERK Temperature 36.4 ??C (97.5 ??F) 03/09/2023 11:[address] Respiratory Rate 16 03/09/2023 11:45 AM PACKAGING CLERK Oxygen Saturation 99% 03/09/2023 11:45 AM PACKAGING CLERK Inhaled Oxygen Concentration - - Weight 90.3 kg (199 lb) 03/05/2023 1:02 PM PACKAGING CLERK Height 167.6 cm (5' 6 ) 03/05/2023 1:02 PM PACKAGING CLERK Body Mass Index 32.12 03/05/2023 1:02 PM PACKAGING CLERK documented in this encounter Functional Status * Question Answer Date of Assessment Author Status Do you have serious difficulty walking or climbing stairs? 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 AGING CLERK CT HEAD WO CON Result Date: 03/05/2023 [...] Portions of this note were dictated with [employer] medical dictation software. Misspellings, punctuation errors, omitted words or dictation variances may occur. Signed: MAJOR EDMOND MD AGING CLERK documented in this encounter Discharge Instructions * Attachments The following attachments cannot be sent through Care Everywhere. * Urinary Tract Infection Discharge Instructions, Adult (Lithuanian) * Linezolid, ADULT (Lithuanian) documented in this encounter Medications at Time of Discharge calcium carbonate (TUMS) 500 MG chewable tablet Chew 1 tablet (500 mg total) by mouth 2 (two) times daily as needed. 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 Use as instructed 200 strip 3 3 02/26/19 25 HUMALOG MIX 75/25 (75-25) 100 UNIT/ML SuspensionIndicatio ns:Type 2 diabetes mellitus with retinopathy, with long-term current use of insulin, macular edema presence unspecified, unspecified laterality, unspecified retinopathy severity ([facility] HHS/HCC) Inject 55-65 Units into the skin [...] from Medicare (Subsequent IMM) Signed Copy delivered AGING CLERK * Jayla Joe RN - 03/09/2023 1:30 [...] 1300 by Jayla Jeo RN Outcome: Progressing Goal: Reduced Risk of [...] 1300 by Jayla Joe RN Outcome: Progressing AGING CLERK * Jayla Joe RN - 03/09/2023 1:00 [...] Goal: Absence of venous thromboembolism Outcome: Progressing AGING CLERK * Shana Martinez, EXECUTIVE TALENT ACQUISITION CONSULTANT - 03/08/2023 3:48 PM CST 03/08 Possible transition to PO Linezolid tomorrow and discharge cw AGING CLERK * Shaan Martinez, EXECUTIVE TALENT ACQUISITION CONSULTANT - 03/08/2023 3:48 PM CST Patient continues on IV Zosyn, possible transition to PO and discharge tomorrow 03/08/23 4760 Interdisciplinary Group Conference Team Members Present Physician;Case/Care management;Nursing;PT/OT;Pharmacy Physician present for group conference Ramesh Dexter Barriers to Discharge Barriers No Barrier- Medical Milestone in Process No Barrier- Medical Milestone in Process follow up Patient continues on IV Zosyn possible transition to PO and discharge tomorrow Patient expects to be discharged to: Home or Self care no new needs AGING CLERK * aJyla Joe RN - 03/08/2023 2:33 PM CST [...] 1431 by Jayla Joe RN Outcome: Progressing AGING CLERK * Jayla Joe RN - 03/08/2023 2:31 [...] Goal: Absence of venous thromboembolism Outcome: Progressing AGING CLERK * Ramesh Dexter DO - 03/08/2023 1:58 [...] input(s): PH , PCO2 , PO2 , [id number] , BICARBWB , BASEDEFICIT , BASEEXCESS in [...] cover. RAMESH DEXTER DO 03/08/2023 1:58 PM AGING CLERK * Shana Martinez EXECUTIVE TALENT ACQUISITION CONSULTANT - 03/07/2023 3:53 PM CST 03/07 Awaiting final culture results cw AGING CLERK * Shana Martinez EXECUTIVE TALENT ACQUISITION CONSULTANT - 03/07/2023 3:53 PM CST Awaiting final culture results 03/07/23 1552 Interdisciplinary Group Conference Team Members Present Physician;Case/Care management;Nursing;PT/OT;Pharmacy Physician present for group conference Ramesh Dexter Barriers to Discharge Barriers No Barrier- Medical Milestone in Process No Barrier- Medical Milestone in Process follow up Awaiting final culture results Patient expects to be discharged to: Home or Self care no new needs AGING CLERK * Jayla Joe RN - 03/07/2023 1:49 [...] Goal: Absence of venous thromboembolism Outcome: Progressing AGING CLERK * Ramesh Dexter DO - 03/07/2023 1:17 [...] input(s): PH , PCO2 , PO2 , [id number] , BICARBWB , BASEDEFICIT , BASEEXCESS in [...] understanding. RAMESH DEXTER DO 03/07/2023 1:17 PM AGING CLERK * Ana Aleman RN - 03/06/2023 7:58 [...] Goal: Reduced Risk of Polypharmacy Outcome: Progressing AGING CLERK * Laura Keller RN - 03/06/2023 2:58 [...] No financial concerns reported PCP/Insurance Plan: [facility] Segura/[facility] Discharge needs: RNCM will follow case daily and will continuously evaluate discharge needs based on recommendations and treatment course. 03/06/23 1459 Referral Data Source of Information Patient Patient Information Primary Caregiver Self Current living Situation Children Type of Residence Private residence Support System Immediate family Are you employed? Retired Baseline ADL's Active DME Wheelchair;Walker Behavior Oriented;Cooperative Communication Talks;Understands speaking;Understands Lithuanian DC screening tool This is a screening [...] [place] only - Is patient going to retirement? No AGING CLERK * Mendy Mirza MD - 03/06/2023 1:22 [...] input(s): PH , PCO2 , PO2 , [id number] , BICARBWB , BASEDEFICIT , BASEEXCESS in [...] voiced understanding. This note was dictated with Telensius medical dictation software; misspellings, punctuation errors, omitted words or dictation variances may occur. Mendy Mirza MD 03/06/2023 1:22 PM AGING CLERK documented in this encounter H&P Notes * [...] Charcot foot due to diabetes mellitus ([facility]/HCC) ([facility]/HCC) LEFT FOOT Constipation COVID-19 Diabetes mellitus (HHS/HCC) (CMS/HCC) Diabetic neuropathy (HHS/HCC) ([facility]/HCC) Gastric ulcer High cholesterol Hypertension Kidney [...] file Stress: No Stress Concern Present (09/03/2022) [place] [employer] - Occupational Stress Questionnaire [...] 6 ) 90.3 kg (199 lb) Intake/Output :[id number]@ Constitutional: Well developed, Well nourished, No acute [...] input(s): PH , PCO2 , PO2 , [id number] , BICARBWB , BASEDEFICIT , BASEEXCESS in [...] note was dictated with the use of [employer] dictation software and was proofread to the best of my ability. If you have questions or find errors, please contact me via [employer]. Thank you. WANDA LANGSTON APRN 03/05/2023 4:56 PM Cosigned by Heidi Jolly MD at 03/05/2023 6:50 PM PACKAGING CLERK AGING CLERK AGING CLERK Associated attestation - Heidi Jolly MD - 03/05/2023 6:50 PM PACKAGING CLERK IHeidi MD participated in the care of this patient today and discussed the plan of care with advance provider who shared in this visit. I have reviewed the KIAN's documentation and agreewith the findings except as I have documented. I personally spent a substantial amount of time on medical decision making and caring for this patient. Patient seen and examined. DRAPERY CUTTER/PA note reviewed. General: . Awake, alert, appears uncomfortable CV: RRR, Pulmonary: Clear to auscultation. Nonlabored. No wheezing/rhonchi/crackles Abdomen: Soft, nondistended, diffuse tenderness over lower abdomen, +CVA tenderness on the right Agree with plan as outlined above. Patient admitted for UTI and pyelitis. Failed outpatient antibiotics. Start ceftriaxone. Follow-up culture Heidi Jolly MD documented in this encounter Nursing Notes * Ana lAeman RN - 03/06/2023 9:25 PM CST PVR scan per order completed. Pt. Voided 300ml urine, scan shows 0ml in bladder at this time. AGING CLERK documented in this encounter ED Notes * Parris Bang RN - 03/06/2023 8:20 AM CST Pharmacy called to request insulin be sent to ED. AGING CLERK * Gladys Blanco RN - 03/06/2023 7:31 AM CST POCT glucose 183 at this time. AGING CLERK * Opal Lei RN - 03/05/2023 1:28 PM CST Pt from provider's office with cc of UTI symptoms. Has had a course of ABX with no relief, concern for pyelonephritis. AGING CLERK * CYNTHIA Babb - 03/05/2023 1:05 PM [...] IV CON ONLY Final Result by User, [id number] (03/05 405) EXAMINATION: CT ABDOMEN AND PELVIS WITH CONTRAST [...] Enrrique Jara MD at 03/06/2023 4:36 PM PACKAGING CLERK AGING CLERK AGING CLERK * Yasmin Tomlin PA-C - 03/05/2023 12:56 PM CSTSummary: flank pain [place] EMERGENCY DEPARTMENT ENCOUNTER Medical Screening Examination [...] Enrrique Jara MD at 03/06/2023 4:35 PM PACKAGING CLERK AGING CLERK AGING CLERK documented in this encounter Plan of Treatment Upcoming Encounters Date Type Department Care Team (Late st Contact Info) Description 03/14/2024 11:45 AM PACKAGING CLERK Office Visit [facility] [phone] Marvin Mckeon MD [address] [place] [address] 03/20/2024 11:30 AM PACKAGING CLERK Office Visit [facility] - [place] [address] [place] [phone] Yasmin Segura II, MD [address] [place], [place] [phone] documented as of this encounter Goals Goal Patient Goal Type Associated Problems Recent Progress Patient-Stated? Author Family - family caregiver with be involved in care transitions and discharge planning Lifestyle Natty Angeles, RN documented as of this encounter Procedures Procedure Name Priority Date/Time Associated Diagnosis Comments POCT GLUCOSE - CORREA DOCKED DEVICE Routine 03/09/2023 11:45 AM PACKAGING CLERK IRON SAT PANEL (IRON,IBC,%SAT) Routine 03/09/2023 9:12 AM PACKAGING CLERK VITAMIN B-12 Routine 03/09/2023 9:12 AM PACKAGING CLERK BASIC METABOLIC PANEL Routine 03/09/2023 9:12 AM PACKAGING CLERK FOLIC ACID SERUM Routine 03/09/2023 9:12 AM PACKAGING CLERK CBC W/DIFF AUTOMATED Routine 03/09/2023 9:12 AM PACKAGING CLERK MAGNESIUM Routine 03/09/2023 9:12 AM PACKAGING CLERK FERRITIN Routine 03/09/2023 9:12 AM PACKAGING CLERK POCT GLUCOSE - CORREA DOCKED DEVICE Routine 03/09/2023 9:01 AM PACKAGING CLERK POCT GLUCOSE - CORREA DOCKED DEVICE Routine 03/09/2023 6:43 AM PACKAGING CLERK POCT GLUCOSE - CORREA DOCKED DEVICE Routine 03/09/2023 2:16 AM PACKAGING CLERK POCT GLUCOSE - CORREA DOCKED DEVICE Routine 03/08/2023 8:11 PM PACKAGING CLERK POCT GLUCOSE - CORREA DOCKED DEVICE Routine 03/08/2023 4:04 PM PACKAGING CLERK POCT GLUCOSE - CORREA DOCKED DEVICE Routine 03/08/2023 12:03 PM PACKAGING CLERK POCT GLUCOSE - CORREA DOCKED DEVICE Routine 03/08/2023 9:29 AM PACKAGING CLERK POCT GLUCOSE - CORREA DOCKED DEVICE Routine 03/08/2023 5:52 AM PACKAGING CLERK POCT GLUCOSE - CORREA DOCKED DEVICE Routine 03/07/2023 9:08 PM PACKAGING CLERK POCT GLUCOSE - CORREA DOCKED DEVICE Routine 03/07/2023 5:18 PM PACKAGING CLERK POCT GLUCOSE - CORREA DOCKED DEVICE Routine 03/07/2023 12:48 PM PACKAGING CLERK POCT GLUCOSE - CORREA DOCKED DEVICE Routine 03/07/2023 11:36 AM PACKAGING CLERK POCT GLUCOSE - CORREA DOCKED DEVICE Routine 03/07/2023 8:34 AM PACKAGING CLERK COMPREHENSIVE METABOLIC PANEL Routine 03/07/2023 5:00 AM PACKAGING CLERK CBC W/DIFF AUTOMATED Routine 03/07/2023 5:00 AM PACKAGING CLERK PHOSPHORUS, INORGANIC PHOSPHATE Routine 03/07/2023 5:00 AM PACKAGING CLERK MAGNESIUM Routine 03/07/2023 5:00 AM PACKAGING CLERK POCT GLUCOSE - CORREA DOCKED DEVICE Routine 03/07/2023 2:46 AM PACKAGING CLERK GI PANEL PCR - STOOL STAT 03/06/2023 9:18 PM PACKAGING CLERK POCT GLUCOSE - CORREA DOCKED DEVICE Routine 03/06/2023 8:16 PM PACKAGING CLERK POCT GLUCOSE - CORREA DOCKED DEVICE Routine 03/06/2023 4:29 PM PACKAGING CLERK POCT GLUCOSE - CORREA DOCKED DEVICE Routine 03/06/2023 11:57 AM PACKAGING CLERK POCT GLUCOSE - CORREA DOCKED DEVICE Routine 03/06/2023 7:28 AM PACKAGING CLERK COMPREHENSIVE METABOLIC PANEL STAT 03/06/2023 6:02 AM PACKAGING CLERK CBC W/DIFF AUTOMATED STAT 03/06/2023 6:02 AM PACKAGING CLERK POCT GLUCOSE - CORREA DOCKED DEVICE Routine 03/06/2023 1:30 AM PACKAGING CLERK POCT GLUCOSE - CORREA DOCKED DEVICE Routine 03/05/2023 9:[address] HEAD WO CON STAT 03/05/2023 6:13 PM PACKAGING CLERK POCT GLUCOSE - CORREA DOCKED DEVICE Routine 03/05/2023 5:41 PM PACKAGING CLERK ECG 12-LEAD Routine 03/05/2023 5:[address] ABD+PEL W CON STAT 03/05/2023 3:17 PM PACKAGING CLERK CULTURE, BACTERIA, BLOOD STAT 03/05/2023 2:23 PM PACKAGING CLERK LACTIC ACID W REFLEX (SEPSIS) STAT 03/05/2023 2:09 PM PACKAGING CLERK COMPREHENSIVE METABOLIC PANEL STAT 03/05/2023 2:09 PM PACKAGING CLERK CULTURE, BACTERIA, BLOOD STAT 03/05/2023 2:09 PM PACKAGING CLERK CBC W/DIFF AUTOMATED STAT 03/05/2023 2:09 PM PACKAGING CLERK HC URINALYSIS AUTO W/O MICRO STAT 03/05/2023 1:55 PM PACKAGING CLERK URINE BACTERIA CULTURE STAT 1:55 PM PACKAGING CLERK documented in this encounter Results * (ABNORMAL) POCT glucose (03/09/2023 11:45 AM PACKAGING CLERK) GLUCOSE POC 139(H) 70 - 99 mg/dL 03/09/2023 12:12 PM PACKAGING CLERK [facility] 03/09/2023 11:4 5 AM PACKAGING CLERK us Major Edmond MD POCT ORDERABLES - YSABEL CE Final Result Performing Organization Address [facility] Co de Phone Number [facility] [address] [place] [address], [place] [phone] * IRON SAT PANEL (IRON,IBC,%SAT) (03/09/2023 9:12 AM PACKAGING CLERK) Pathologist [facility] [place] IRON 69 50.0 - 170.0 MCG/DL 03/09/2023 11:17 AM PACKAGING CLERK [facility] IRON BINDING CAPACITY 311 250 - 450 MCG/DL 03/09/2023 11:17 AM PACKAGING CLERK [facility] IRON SATURATION 22 20 - 55 % 11:17 AM PACKAGING CLERK [facility] 03/09/2023 9:12 AM PACKAGING CLERK Major Edmond MD LABORATORY Final Result Performing Organization Address [facility]/ZIP Co de Phone Number [facility] [address] [place] [address], [place] [phone] * VITAMIN B-12 (03/09/2023 9:12 AM PACKAGING CLERK) Pathologist [facility] [place] VITAMIN B12 S/P/B 665 254 - 1,320 PG/ML 03/09/2023 11:37 AM PACKAGING CLERK [facility] 03/09/2023 9:12 AM PACKAGING CLERK Major Edmond MD LABORATORY Final Result Performing Organization Address City/[facility]/ZIP Co de Phone Number [facility] [address] [place] [address], [place] [phone] * FOLIC ACID SERUM (03/09/2023 9:12 AM PACKAGING CLERK) Pathologist [facility] FOLATE 9.7 3.1 - 17.5 NG/ML 03/09/2023 11:37 AM PACKAGING CLERK [facility] 03/09/2023 9:12 AM PACKAGING CLERK Major Edmond MD LABORATORY Final Result [facility] [address] [place] [address], * FERRITIN (03/09/2023 9:12 AM PACKAGING CLERK) FERRITIN 55.8 8.0 - 388.0 NG/ML 03/09/2023 11:37 AM PACKAGING CLERK [facility] 03/09/2023 9:12 AM PACKAGING CLERK Major Edmond MD LABORATORY Final Result Performing Organization Address City/[facility]/ZIP Co de Phone Number [facility] [address] [place] [address], * (ABNORMAL) CBC W/DIFF AUTOMATED (03/09/2023 9:12 AM PACKAGING CLERK) WBC 9.5 4.5 - 11.0 x10'3/uL 03/09/2023 9:37 AM PACKAGING CLERK [facility] RBC 3.85(L) 4.20 - 5.40 x10'6/uL 03/09/2023 9:37 AM PACKAGING CLERK [facility] HGB 11.3(L) 12.0 - 16.0 G/DL 03/09/2023 9:37 AM [facility] HCT 33.9(L) 38.0 - 48.0 % 03/09/2023 9:37 AM PACKAGING CLERK [facility] MCV 88.1 81.0 - 99.0 FL 03/09/2023 9:37 AM [facility] MCH 29.4 27.0 - 31.0 PG 03/09/2023 9:37 AM [facility] MCHC 33.3 32.0 - 36.0 G/DL 03/09/2023 9:37 AM [facility] RDW 13.2 11.5 - 14.5 % 03/09/2023 9:37 AM [facility] PLT 279 130 - 400 x10'3/uL 03/09/2023 9:37 AM [facility] MPV 10.7 9.3 - 12.2 FL 03/09/2023 9:37 AM [facility] DIFFERENTIAL TYPE AUTOMATED DIFFERENTIAL 03/09/2023 9:37 AM [facility] NEUTROPHILS % 65.3 % 03/09/2023 9:37 AM [facility] LYMPHOCYTES % 27.8 % 03/09/2023 9:37 AM [facility] MONOCYTES % 4.4 % 03/09/2023 9:37 AM [facility] EOSINOPHILS 1.7 % 03/09/2023 9:37 AM [facility] BASOPHILS 0.5 % 03/09/2023 9:37 AM [facility] IMMATURE GRANS % 0.3 % 03/09/19 9:37 AM [facility] ABS. NEUTROPHILS TOTAL 6.18 1.80 - 7.70 x10'3/uL 03/09/2023 9:37 AM [facility] ABS. LYMPHOCYTES 2.63 1.00 - 4.80 x10'3/uL 03/09/2023 9:37 AM [facility] ABS. MONOCYTES 0.42 0.24 - 0.86 x10'3/uL 03/09/2023 9:37 AM PACKAGING CLERK [facility] ABS. EOSINOPHILS 0.16 0.04 - 0.36 x10'3/uL 03/09/2023 9:37 AM PACKAGING CLERK [facility] ABS. BASOPHILS 0.05 0.01 - 0.08 x10'3/uL 03/09/2023 9:37 AM PACKAGING CLERK [facility] ABS. IMMATURE GRANULOCYTES 0.03 0.00 - 0.49 x10'3/uL 03/09/2023 9:37 AM PACKAGING CLERK [facility] 03/09/2023 9:12 AM PACKAGING CLERK Major Edmond MD LABORATORY Final Result Performing Organization Address [facility]/ZIP Co de Phone Number [facility] [address] [place] [address], * MAGNESIUM (03/09/2023 9:12 AM PACKAGING CLERK) MAGNESIUM 1.9 1.8 - 2.4 MG/DL 03/09/2023 11:17 AM PACKAGING CLERK [facility] 03/09/2023 9:12 AM PACKAGING CLERK Major Edmond MD LABORATORY Final Result Performing Organization Address City/[facility]/ZIP Co de Phone Number [facility] [address] [place] [address], * (ABNORMAL) BASIC METABOLIC PANEL (03/09/2023 9:12 AM PACKAGING CLERK) GLUCOSE 179(H) 70 - 99 MG/DL 03/09/2023 11:17 AM PACKAGING CLERK [facility] BUN 19(H) 7 - 18 MG/DL 03/09/2023 11:17 AM [facility] CREATININE S/P/B 1.22(H) 0.55 - 1.02 MG/DL 03/09/2023 11:17 AM [facility] SODIUM S/P/B 139 136 - 145 MMOL/L 03/09/2023 11:17 AM [facility] POTASSIUM S/P/B 5.0 3.5 - 5.1 MMOL/L 03/09/2023 11:17 AM [facility] CHLORIDE S/P/B 108 100 - 108 MMOL/L 03/09/2023 11:17 AM [facility] CO2 27.6 21 - 32 MMOL/L 03/09/2023 11:17 AM [facility] CALCIUM S/P/B 9.4 8.5 - 10.1 MG/DL 03/09/2023 11:17 AM [facility] ANION GAP 3.4(L) 5 - 15 MMOL/L 03/09/2023 11:17 AM [facility] BUN CREATININE RATIO 15.6 6 - 26 03/09/2023 11:17 AM [facility] GFR ESTIMATE 54(L) >90 ML/MIN/1.7 3 M2 03/09/2023 11:17 AM [facility] Comment: NOTE: eGFR is not calculated for patients <18 years of age. This is an estimated GFR calculation using the new CKD EPI creatinine equation without race and so does not require a correction factor for race. This estimated GFR should not be used for calculating drug doses. 03/09/2023 9:12 AM PACKAGING CLERK us Major Edmond MD LABORATORY Final Result [facility] [address] [place] [address], [place] [phone] * (ABNORMAL) POCT glucose (03/09/2023 9:01 AM PACKAGING CLERK) GLUCOSE POC 191(H) 70 - 99 mg/dL 03/09/2023 9:04 AM PACKAGING CLERK [facility] 03/09/2023 9:01 AM PACKAGING CLERK Major Edmond MD POCT ORDERABLES - YSABEL CE Final Result Performing Organization Address [facility]/ZIP Co de Phone Number [address] [address], [place] [phone] * (ABNORMAL) POCT glucose (03/09/2023 6:43 AM PACKAGING CLERK) GLUCOSE POC 112(H) 70 - 99 mg/dL 03/09/2023 6:45 AM PACKAGING CLERK [facility] 03/09/2023 6:43 AM PACKAGING CLERK Major Edmond MD POCT ORDERABLES - YSABEL CE Final Result Performing Organization Address City/[facility]/ZIP Co de Phone Number [facility] [address] [place] [address], [place] [phone] * (ABNORMAL) POCT glucose (03/09/2023 2:16 AM PACKAGING CLERK) GLUCOSE POC 104(H) 70 - 99 mg/dL 03/09/2023 2:23 AM PACKAGING CLERK [facility] 03/09/2023 2:16 AM PACKAGING CLERK us Ramesh Dexter DO POCT ORDERABLES - DEVICE Fi nal Result [facility] [address] [place] [address], [place] [phone] * (ABNORMAL) POCT glucose (03/08/2023 8:11 PM PACKAGING CLERK) GLUCOSE POC 248(H) 70 - 99 mg/dL 03/08/2023 8:14 PM PACKAGING CLERK [facility] 03/08/2023 8:11 PM PACKAGING CLERK us Ramesh Dexter DO POCT ORDERABLES - DEVICE Fi nal Result Performing Organization Address [facility] Co de Phone Number [address] [address], [place] [phone] * (ABNORMAL) POCT glucose (03/08/2023 4:04 PM PACKAGING CLERK) GLUCOSE POC 182(H) 70 - 99 mg/dL 03/08/2023 5:40 PM PACKAGING CLERK [facility] 03/08/2023 4:04 PM PACKAGING CLERK us Ramesh Dexter DO POCT ORDERABLES - DEVICE Fi nal Result Performing Organization Address City/[facility]/ZIP Co de Phone Number [facility] [address] [place] [address], [place] [phone] * (ABNORMAL) POCT glucose (03/08/2023 12:03 PM PACKAGING CLERK) GLUCOSE POC 155(H) 70 - 99 mg/dL 03/08/2023 12:10 PM PACKAGING CLERK [facility] 03/08/2023 12:0 3 PM PACKAGING CLERK us Ramesh Dexter DO POCT ORDERABLES - DEVICE Fi nal Result Performing Organization Address [facility] Co de Phone Number [facility] [address] [place] [address], [place] [phone] * (ABNORMAL) POCT glucose (03/08/2023 9:29 AM PACKAGING CLERK) GLUCOSE POC 180(H) 70 - 99 mg/dL 03/08/2023 9:33 AM PACKAGING CLERK [facility] 03/08/2023 9:29 AM PACKAGING CLERK us Ramesh Dexter DO POCT ORDERABLES - DEVICE Fi nal Result Performing Organization Address [facility] de Phone Number [address] [address], [place] [phone] * POCT glucose (03/08/2023 5:52 AM PACKAGING CLERK) GLUCOSE POC 77 70 - 99 mg/dL 03/08/2023 5:53 AM PACKAGING CLERK [facility] 03/08/2023 5:52 AM PACKAGING CLERK us Ramesh Dexter DO POCT ORDERABLES - DEVICE Fi nal Result Performing Organization Address City/[facility] Co de Phone Number [facility] [address] [place] [address], [place] [phone] * (ABNORMAL) POCT glucose (03/07/2023 9:08 PM PACKAGING CLERK) GLUCOSE POC 125(H) 70 - 99 mg/dL 03/07/2023 9:13 PM PACKAGING CLERK [facility] 03/07/2023 9:08 PM PACKAGING CLERK us Ramesh Dexter DO POCT ORDERABLES - DEVICE Fi nal Result Performing Organization Address [facility] Co de Phone Number [address] [address], [place] [phone] * (ABNORMAL) POCT glucose (03/07/2023 5:18 PM PACKAGING CLERK) GLUCOSE POC 193(H) 70 - 99 mg/dL 03/07/2023 5:22 PM PACKAGING CLERK [facility] 03/07/2023 5:18 PM PACKAGING CLERK us Ramesh Dexter DO POCT ORDERABLES - DEVICE Fi nal Result Performing Organization Address [facility] Co de Phone Number [address] [address], [place] [phone] * (ABNORMAL) POCT glucose (03/07/2023 12:48 PM PACKAGING CLERK) GLUCOSE POC 185(H) 70 - 99 mg/dL 03/07/2023 12:50 PM PACKAGING CLERK [facility] 03/07/2023 12:4 8 PM PACKAGING CLERK us Ramesh Dexter DO POCT ORDERABLES - DEVICE Fi nal Result Performing Organization Address City/[facility] Co de Phone Number [facility] [address] [place] [address], [place] [phone] * (ABNORMAL) POCT glucose (03/07/2023 11:36 AM PACKAGING CLERK) GLUCOSE POC 130(H) 70 - 99 mg/dL 03/07/2023 11:38 AM PACKAGING CLERK [facility] 03/07/2023 11:3 6 AM PACKAGING CLERK Ramesh Dexter DO POCT ORDERABLES - DEVICE Fi nal Result Performing Organization Address City/[facility]/ZIP Co de Phone Number [facility] [address] [place] [address], [place] [phone] * (ABNORMAL) POCT glucose (03/07/2023 8:34 AM PACKAGING CLERK) GLUCOSE POC 178(H) 70 - 99 mg/dL 03/07/2023 8:36 AM PACKAGING CLERK [facility] 03/07/2023 8:34 AM PACKAGING CLERK us Ramesh Dexter DO POCT ORDERABLES - DEVICE Fi nal Result Performing Organization Address [facility] Co de Phone Number [facility] [address] [place] [address], * PHOSPHORUS, INORGANIC PHOSPHATE (03/07/2023 5:00 AM PACKAGING CLERK) PHOSPHORUS 4.2 2.5 - 4.9 MG/DL 03/07/2023 5:47 AM PACKAGING CLERK [facility] 03/07/2023 5:00 AM PACKAGING CLERK us Mendy Mirza MD LABORATORY Final Result Performing Organization Address City/[facility] Co de Phone Number [facility] [address] [place] [address], [place] [phone] * MAGNESIUM (03/07/2023 5:00 AM PACKAGING CLERK) MAGNESIUM 1.9 1.8 - 2.4 MG/DL 03/07/2023 5:47 AM PACKAGING CLERK [facility] 03/07/2023 5:00 AM PACKAGING CLERK Mendy Mirza MD LABORATORY Final Result [facility] [address] [place] [address], [place] [phone] * (ABNORMAL) COMPREHENSIVE METABOLIC PANEL (03/07/2023 5:00 AM PACKAGING CLERK) [facility] GLUCOSE 86 70 - 99 MG/DL 03/07/2023 5:47 AM [facility] BUN 23(H) 7 - 18 MG/DL 03/07/2023 5:47 AM [facility] CREATININE S/P/B 1.00 0.55 - 1.02 MG/DL 03/07/2023 5:47 AM [facility] SODIUM S/P/B 141 136 - 145 MMOL/L 03/07/2023 5:47 AM [facility] POTASSIUM S/P/B 3.4(L) 3.5 - 5.1 MMOL/L 03/07/2023 5:47 AM [facility] CHLORIDE S/P/B 115(H) 100 - 108 MMOL/L 03/07/2023 5:47 AM [facility] CO2 23.1 21 - 32 MMOL/L 03/07/2023 5:47 AM [facility] CALCIUM S/P/B 7.7(L) 8.5 - 10.1 MG/DL 03/07/2023 5:47 AM [facility] BILIRUBIN TOTAL S/P/B 0.2 0.2 - 1.2 MG/DL 03/07/2023 5:47 AM [facility] Comment: THIS ASSAY IS NOT RECOMMENDED FOR PATIENTS UNDERGOING TREATMENT WITH ELTROMBOPAG DUE TO THE POTENTIAL FOR FALSELY ELEVATED RESULTS. TOTAL PROTEIN S/P/B 7.1 6.4 - 8.2 G/DL 03/07/2023 5:47 AM [facility] ALBUMIN S/P/B 2.5(L) 3.4 - 5.0 G/DL 03/07/2023 5:47 AM [facility] AST 17 15 - 37 U/L 03/07/2023 5:47 AM [facility] ALT 21 14 - 55 U/L 03/07/2023 5:47 AM [facility] ALKALINE PHOSPHATASE S/P/B 129 50 - 136 U/L 03/07/2023 5:47 AM [facility] ANION GAP 2.9(L) 5 - 15 MMOL/L 03/07/2023 5:47 AM [facility] BUN CREATININE RATIO 23.0 6 - 26 03/07/2023 5:47 AM [facility] A/G RATIO 0.5(L) 1.0 - 2.0 RATIO 03/07/2023 5:47 AM [facility] GFR ESTIMATE 68(L) >90 ML/MIN/1.7 3 M2 03/07/2023 5:47 AM [facility] Comment: NOTE: eGFR is not calculated for patients <18 years of age. This is an estimated GFR calculation using the new CKD EPI creatinine equation without race and so does not require a correction factor for race. This estimated GFR should not be used for calculating drug doses. 03/07/2023 5:00 AM PACKAGING CLERK us Mendy Mirza MD LABORATORY Final Result [facility] [address] [place] [address], [place] [phone] * (ABNORMAL) CBC W/DIFF AUTOMATED (03/07/2023 5:00 AM PACKAGING CLERK) [facility] WBC 6.4 4.5 - 11.0 x10'3/uL 03/07/2023 5:45 AM [facility] RBC 2.91(L) 4.20 - 5.40 x10'6/uL 03/07/2023 5:45 AM [facility] HGB 8.7(L) 12.0 - 16.0 G/DL 03/07/2023 5:45 AM [facility] HCT 27.6(L) 38.0 - 48.0 % 03/07/2023 5:45 AM [facility] MCV 94.8 81.0 - 99.0 FL 03/07/2023 5:45 AM [facility] MCH 29.9 27.0 - 31.0 PG 03/07/2023 5:45 AM [facility] MCHC 31.5(L) 32.0 - 36.0 G/DL 03/07/2023 5:45 AM [facility] RDW 13.2 11.5 - 14.5 % 03/07/2023 5:45 AM [facility] PLT 197 130 - 400 x10'3/uL 03/07/2023 5:45 AM [facility] MPV 10.7 9.3 - 12.2 FL 03/07/2023 5:45 AM [facility] DIFFERENTIAL TYPE AUTOMATED DIFFERENTIAL 03/07/2023 5:45 AM [facility] NEUTROPHILS % 55.2 % 03/07/2023 5:45 AM [facility] LYMPHOCYTES % 36.5 % 03/07/2023 5:45 AM [facility] MONOCYTES % 5.9 % 03/07/2023 5:45 AM [facility] EOSINOPHILS 1.6 % 03/07/2023 5:45 AM [facility] BASOPHILS 0.5 % 03/07/2023 5:45 AM [facility] IMMATURE GRANS % 0.3 % 03/07/19 5:45 AM [facility] ABS. NEUTROPHILS TOTAL 3.54 1.80 - 7.70 x10'3/uL 03/07/2023 5:45 AM [facility] ABS. LYMPHOCYTES 2.34 1.00 - 4.80 x10'3/uL 03/07/2023 5:45 AM [facility] ABS. MONOCYTES 0.38 0.24 - 0.86 x10'3/uL 03/07/2023 5:45 AM [facility] ABS. EOSINOPHILS 0.10 0.04 - 0.36 x10'3/uL 03/07/2023 5:45 AM [facility] ABS. BASOPHILS 0.03 0.01 - 0.08 x10'3/uL 03/07/2023 5:45 AM [facility] ABS. IMMATURE GRANULOCYTES 0.02 0.00 - 0.49 x10'3/uL 03/07/2023 5:45 AM [facility] 03/07/2023 5:00 AM [facility] us Mendy Mirza MD LABORATORY Final Result [facility] [address] [place] [address], * (ABNORMAL) POCT glucose (03/07/2023 2:46 AM PACKAGING CLERK) [facility] GLUCOSE POC 102(H) 70 - 99 mg/dL 03/07/2023 5:31 AM PACKAGING CLERK [facility] 03/07/2023 2:46 AM PACKAGING CLERK Mendy Mirza MD POCT ORDERABLES - DEVICE Final Result [facility] [address] [place] [address], * GI PANEL PCR - STOOL (03/06/2023 9:18 PM PACKAGING CLERK) CAMPYLOBACTER PCR (STOOL) NOT DETECTED NOT DETECTED 03/07/2023 8:55 AM PACKAGING CLERK [facility] PLESIOMONAS SHIGELLOIDES PCR (STOOL) NOT DETECTED NOT DETECTED 03/07/2023 8:55 AM PACKAGING CLERK [facility] SALMONELLA PCR (STOOL) NOT DETECTED NOT DETECTED 03/07/2023 8:55 AM PACKAGING CLERK [facility] VIBRIO PCR (STOOL) NOT DETECTED NOT DETECTED 03/07/2023 8:55 AM PACKAGING CLERK [facility] VIBRIO CHOLERAE PCR (STOOL) NOT DETECTED NOT DETECTED 03/07/2023 8:55 AM PACKAGING CLERK [facility] YERSINIA ENTEROCOLITICA PCR (STOOL) NOT DETECTED NOT DETECTED 03/07/2023 8:55 AM PACKAGING CLERK [facility] ENTEROAGGREGATIVE ECOLI PCR (STOOL) NOT DETECTED NOT DETECTED 03/07/2023 8:55 AM PACKAGING CLERK [facility] ENTEROPATHOGENIC ECOLI PCR (STOOL) NOT DETECTED NOT DETECTED 03/07/2023 8:55 AM PACKAGING CLERK [facility] ENTEROTOXIGENIC ECOLI PCR (STOOL) NOT DETECTED NOT DETECTED 03/07/2023 8:55 AM PACKAGING CLERK [facility] SHIGA LIKE TOXIN ECOLI PCR (STOOL) NOT DETECTED NOT DETECTED 03/07/2023 8:55 AM PACKAGING CLERK [facility] SHIG/ENTEROINVASIVE ECOLI PCR (STOOL) NOT DETECTED NOT DETECTED 03/07/2023 8:55 AM PACKAGING CLERK [facility] CRYPTOSPORIDIUM PCR (STOOL) NOT DETECTED NOT DETECTED 03/07/2023 8:55 AM PACKAGING CLERK [facility] CYCLOSPORA CAYETANENSIS PCR (STOOL) NOT DETECTED NOT DETECTED 03/07/2023 8:55 AM PACKAGING CLERK [facility] ENTAMOEBA HISTOLYTICA PCR (STOOL) NOT DETECTED NOT DETECTED 03/07/2023 8:55 AM PACKAGING CLERK [facility] GIARDIA LAMBLIA PCR (STOOL) NOT DETECTED NOT DETECTED 03/07/2023 8:55 AM PACKAGING CLERK [facility] ADENOVIRUS F40/41 PCR (STOOL) NOT DETECTED NOT DETECTED 03/07/2023 8:55 AM PACKAGING CLERK [facility] ASTROVIRUS PCR (STOOL) NOT DETECTED NOT DETECTED 03/07/2023 8:55 AM PACKAGING CLERK [facility] NOROVIRUS GI/GII PCR (STOOL) NOT DETECTED NOT DETECTED 03/07/2023 8:55 AM PACKAGING CLERK [facility] ROTAVIRUS A PCR (STOOL) NOT DETECTED NOT DETECTED 03/07/2023 8:55 AM PACKAGING CLERK [facility] SAPOVIRUS PCR (STOOL) NOT DETECTED NOT DETECTED 03/07/2023 8:55 AM PACKAGING CLERK [facility] STOOL SPECIMEN / Unknown 03/06/2023 9:18 PM PACKAGING CLERK Wanda Langston HOME SERVICE CONSULTANT MICROBIOLOGY - GENERAL EFREN FRANK Final Result [facility] [address] [place] [address], * (ABNORMAL) POCT glucose (03/06/2023 8:16 PM PACKAGING CLERK) GLUCOSE POC 126(H) 70 - 99 mg/dL 03/06/2023 8:19 PM PACKAGING CLERK [facility] 03/06/2023 8:16 PM PACKAGING CLERK us Mendy Mirza MD POCT ORDERABLES - DEVICE Final Result Performing Organization Address City/[facility]/ZIP Co de Phone Number [facility] [address] [place] [address], [place] [phone] * (ABNORMAL) POCT glucose (03/06/2023 4:29 PM PACKAGING CLERK) GLUCOSE POC 146(H) 70 - 99 mg/dL 03/06/2023 4:38 PM PACKAGING CLERK [facility] 03/06/2023 4:2 9 PM PACKAGING CLERK us Mendy Mirza MD POCT ORDERABLES - DEVICE Final Result Performing Organization Address [facility] Co de Phone Number [facility] [address] [place] [address], [place] [phone] * (ABNORMAL) POCT glucose (03/06/2023 11:57 AM PACKAGING CLERK) GLUCOSE POC 153(H) 70 - 99 mg/dL 03/06/2023 1:11 PM PACKAGING CLERK [facility] 03/06/2023 11:5 7 AM PACKAGING CLERK us Mendy Mirza MD POCT ORDERABLES - DEVICE Final Result Performing Organization Address City/[facility]/ZIP Co de Phone Number [facility] [address] [place] [address], [place] [phone] * (ABNORMAL) POCT glucose (03/06/2023 7:28 AM PACKAGING CLERK) GLUCOSE POC 183(H) 70 - 99 mg/dL 03/06/2023 7:31 AM [facility] 03/06/2023 7:28 AM PACKAGING CLERK Mendy Mirza MD POCT ORDERABLES - DEVICE Final Result [facility] [address] [place] [address], [place] [phone] * (ABNORMAL) COMPREHENSIVE METABOLIC PANEL (03/06/2023 6:02 AM PACKAGING CLERK) GLUCOSE 174(H) 70 - 99 MG/DL 03/06/2023 6:35 AM [facility] BUN 21(H) 7 - 18 MG/DL 03/06/2023 6:35 AM [facility] CREATININE S/P/B 1.16(H) 0.55 - 1.02 MG/DL 03/06/2023 6:35 AM [facility] SODIUM S/P/B 139 136 - 145 MMOL/L 03/06/2023 6:35 AM [facility] POTASSIUM S/P/B 3.9 3.5 - 5.1 MMOL/L 03/06/2023 6:35 AM [facility] CHLORIDE S/P/B 106 100 - 108 MMOL/L 03/06/2023 6:35 AM [facility] CO2 30.0 21 - 32 MMOL/L 03/06/2023 6:35 AM [facility] CALCIUM S/P/B 9.1 8.5 - 10.1 MG/DL 03/06/2023 6:35 AM [facility] BILIRUBIN TOTAL S/P/B 0.3 0.2 - 1.2 MG/DL 03/06/2023 6:35 AM [facility] Comment: THIS ASSAY IS NOT RECOMMENDED FOR PATIENTS UNDERGOING TREATMENT WITH ELTROMBOPAG DUE TO THE POTENTIAL FOR FALSELY ELEVATED RESULTS. TOTAL PROTEIN S/P/B 8.5(H) 6.4 - 8.2 G/DL 03/06/2023 6:35 AM [facility] ALBUMIN S/P/B 3.1(L) 3.4 - 5.0 G/DL 03/06/2023 6:35 AM [facility] AST 18 15 - 37 U/L 03/06/2023 6:35 AM [facility] ALT 27 14 - 55 U/L 03/06/2023 6:35 AM [facility] ALKALINE PHOSPHATASE S/P/B 154(H) 50 - 136 U/L 03/06/2023 6:35 AM [facility] ANION GAP 3.0(L) 5 - 15 MMOL/L 03/06/2023 6:35 AM [facility] BUN CREATININE RATIO 18.1 6 - 26 03/06/2023 6:35 AM [facility] A/G RATIO 0.6(L) 1.0 - 2.0 RATIO 03/06/2023 6:35 AM [facility] GFR ESTIMATE 57(L) >90 ML/MIN/1.7 3 M2 03/06/2023 6:35 AM [facility] Comment: NOTE: eGFR is not calculated for patients <18 years of age. This is an estimated GFR calculation using the new CKD EPI creatinine equation without race and so does not require a correction factor for race. This estimated GFR should not be used for calculating drug doses. 03/06/2023 6:02 AM PACKAGING CLERK us Wanda Langston HOME SERVICE CONSULTANT LABORATORY Final Resul t [facility] [address] [place] [address], * (ABNORMAL) CBC W/DIFF AUTOMATED (03/06/2023 6:02 AM PACKAGING CLERK) [facility] WBC 9.5 4.5 - 11.0 x10'3/uL 03/06/2023 6:15 AM [facility] RBC 3.64(L) 4.20 - 5.40 x10'6/uL 03/06/2023 6:15 AM [facility] HGB 10.7(L) 12.0 - 16.0 G/DL 03/06/2023 6:15 AM [facility] HCT 32.0(L) 38.0 - 48.0 % 03/06/2023 6:15 AM [facility] MCV 87.9 81.0 - 99.0 FL 03/06/2023 6:15 AM [facility] MCH 29.4 27.0 - 31.0 PG 03/06/2023 6:15 AM [facility] MCHC 33.4 32.0 - 36.0 G/DL 03/06/2023 6:15 AM [facility] RDW 13.0 11.5 - 14.5 % 03/06/2023 6:15 AM [facility] PLT 287 130 - 400 x10'3/uL 03/06/2023 6:15 AM [facility] MPV 10.7 9.3 - 12.2 FL 03/06/2023 6:15 AM [facility] DIFFERENTIAL TYPE AUTOMATED DIFFERENTIAL 03/06/2023 6:15 AM [facility] NEUTROPHILS % 55.8 % 03/06/2023 6:15 AM PACKAGING CLERK [facility] LYMPHOCYTES % 37.1 % 03/06/2023 6:15 AM PACKAGING CLERK [facility] MONOCYTES % 5.0 % 03/06/2023 6:15 AM [facility] EOSINOPHILS 1.5 % 03/06/2023 6:15 AM PACKAGING CLERK [facility] BASOPHILS 0.4 % 03/06/2023 6:15 AM PACKAGING CLERK [facility] IMMATURE GRANS % 0.2 % 03/06/19 6:15 AM PACKAGING CLERK [facility] ABS. NEUTROPHILS TOTAL 5.27 1.80 - 7.70 x10'3/uL 03/06/2023 6:15 AM [facility] ABS. LYMPHOCYTES 3.51 1.00 - 4.80 x10'3/uL 03/06/2023 6:15 AM PACKAGING CLERK [facility] ABS. MONOCYTES 0.47 0.24 - 0.86 x10'3/uL 03/06/2023 6:15 AM PACKAGING CLERK [facility] ABS. EOSINOPHILS 0.14 0.04 - 0.36 x10'3/uL 03/06/2023 6:15 AM [facility] ABS. BASOPHILS 0.04 0.01 - 0.08 x10'3/uL 03/06/2023 6:15 AM PACKAGING CLERK [facility] ABS. IMMATURE GRANULOCYTES 0.02 0.00 - 0.49 x10'3/uL 03/06/2023 6:15 AM [facility] 03/06/2023 6:02 AM PACKAGING CLERK Wanda Langston HOME SERVICE CONSULTANT LABORATORY Final Resul t [facility] [address] [place] [address], [place] [phone] * (ABNORMAL) POCT glucose (03/06/2023 1:30 AM PACKAGING CLERK) GLUCOSE POC 179(H) 70 - 99 mg/dL 03/06/2023 4:10 AM PACKAGING CLERK [facility] 03/06/2023 1:30 AM PACKAGING CLERK Heidi Jolly MD POCT ORDERABLES - DEVICE F inal Result Performing Organization Address City/[facility] Co de Phone Number [facility] [address] [place] [id number], * (ABNORMAL) POCT glucose (03/05/2023 9:52 PM PACKAGING CLERK) GLUCOSE POC 152(H) 70 - 99 mg/dL 03/06/2023 12:52 AM PACKAGING CLERK [facility] 03/05/2023 9:52 PM PACKAGING CLERK Heidi Jolly MD POCT ORDERABLES - DEVICE F inal Result Performing Organization Address City/[facility] Co de Phone Number [facility] [address] [place] [phone], * CT HEAD WO CON (03/05/2023 6:13 PM PACKAGING CLERK) Anatomical Region Laterality Modality Head Computed Tomogra phy 03/05/2023 6:16 PM PACKAGING CLERK Impressions 03/05/2023 6:19 PM PACKAGING CLERK IMPRESSION: 1. No definite CT evidence of acute intracranial abnormality, as above. 2. 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 Referred By: ?? Interpreted By: Jeromy Leyva MD, 03/05/2023 6:16 PM Narrative 03/05/2023 6:19 PM PACKAGING CLERK EXAMINATION: CT of the head CLINICAL HISTORY: [...] Leyva MD, 03/05/2023 6:16 PM Wanda Langston HOME SERVICE CONSULTANT CT Final Resul t * (ABNORMAL) POCT glucose (03/05/2023 5:41 PM PACKAGING CLERK) Pathologist [facility] GLUCOSE POC 116(H) 70 - 99 mg/dL 03/06/2023 12:52 AM PACKAGING CLERK [facility] 03/05/2023 5:41 PM PACKAGING CLERK Heidi Jolly MD POCT ORDERABLES - DEVICE F inal Result [facility] [address] [place] [id number], * ECG 12 lead (03/05/2023 5:36 PM PACKAGING CLERK) 03/05/2023 5:36 PM PACKAGING CLERK Narrative [facility] ([facility]) RAD - 03/06/2023 5:56 AM PACKAGING CLERK ?[facility] [place] ? [address] [facility] ? Test Date: ?2023-03-05 Pat Name: ? LENA YOUNGBLOOD ?Department: ?? 41 ? Room: ? EXAM09 Gender: ? Female ? 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 [id number] : ?1970 ? Requested By: CRYSTAL BROWN Order Number: [id number] ? Reading MD: ?? Alexei Rodríguez ? Measurements Intervals ?[place] ? Rate: ? 83 ? P: ?48 WA: ? 152 ?QRS: ?26 QRSD: ? 85 ? T: ?50 QT: ? 362 ? QTc: ?427 ? Interpretive Statements SINUS RHYTHM NONSPECIFIC T-WAVE ABNORMALITY Compared to ECG 11/09/2022 22:54:04 Sinus tachycardia no longer present T-wave abnormality still present Other ischemic changes, not STEMI Preliminary EKG Interpretation by Enrrique Jara M.D. AGING CLERK Procedure Note Alexei Rodríguez MD - 03/06/2023 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 AGING CLERK us Wanda Langston HOME SERVICE CONSULTANT ECG ORDERABLES Final Resul t [facility] ([facility]) RAD * CT ABD+PEL W IV CON ONLY (03/05/2023 3:17 PM PACKAGING CLERK) Anatomical Region Laterality Modality Abdomen Computed Tomogra phy 03/05/2023 3:31 PM PACKAGING CLERK Impressions 03/05/2023 3:39 PM PACKAGING CLERK IMPRESSION:===== 1. ?? Chronic right hydronephrosis and [...] 03/05/2023 3:31 PM Narrative 03/05/2023 3:39 PM PACKAGING CLERK EXAMINATION: CT ABDOMEN AND PELVIS WITH CONTRAST [...] * CULTURE, BACTERIA, BLOOD (03/05/2023 2:23 PM PACKAGING CLERK) SPEC DESCRIPTION BLOOD 03/05/2023 1:30 PM PACKAGING CLERK [facility] SPECIAL REQUESTS NO SPECIAL REQUEST 03/05/2023 1:30 PM PACKAGING CLERK [facility] CULTURE RESULT NO GROWTH 5 DAYS 03/10/2023 7:31 AM PACKAGING CLERK [facility] BLOOD SPECIMEN OBTAINED FOR BLOOD CULTURE / Unknown 03/05/2023 2:23 PM PACKAGING CLERK 03/05/2023 2:31 PM PACKAGING CLERK Yasmin Tomlin PA-C MICROBIOLOGY - [facility] Final Result [facility] [address] [place] [address], [place] [phone] * CULTURE, BACTERIA, BLOOD (03/05/2023 2:09 PM PACKAGING CLERK) SPEC DESCRIPTION BLOOD 03/05/2023 1:30 PM PACKAGING CLERK [facility] SPECIAL REQUESTS NO SPECIAL REQUEST 03/05/2023 1:30 PM PACKAGING CLERK [facility] CULTURE RESULT NO GROWTH 5 DAYS 03/10/2023 7:31 AM PACKAGING CLERK [facility] BLOOD SPECIMEN OBTAINED FOR BLOOD CULTURE / Unknown 03/05/2023 2:09 PM PACKAGING CLERK 03/05/2023 2:21 PM PACKAGING CLERK Yasmin Tomlin PA-C MICROBIOLOGY - GENERAL ORDE RABLES Final Result Performing Organization Address City/[facility]/ZIP Co de Phone Number [facility] [address] [place] [address], [place] [phone] * LACTIC ACID W REFLEX (SEPSIS) (03/05/2023 2:09 PM PACKAGING CLERK) LACTIC ACID VENOUS 1.1 0.4 - 2.0 MMOL/L 03/05/2023 2:50 PM PACKAGING CLERK [facility] 03/05/2023 2:09 PM PACKAGING CLERK Yasmin Tomlin PA-C LABORATORY Final Resul t Performing Organization Address [facility] Co de Phone Number [facility] [address] [place] [address], [place] [phone] * (ABNORMAL) COMPREHENSIVE METABOLIC PANEL (03/05/2023 2:09 PM PACKAGING CLERK) GLUCOSE 222(H) 70 - 99 MG/DL 03/05/2023 2:50 PM PACKAGING CLERK [facility] BUN 19(H) 7 - 18 MG/DL 03/05/2023 2:50 PM PACKAGING CLERK [facility] CREATININE S/P/B 1.08(H) 0.55 - 1.02 MG/DL 03/05/2023 2:50 PM PACKAGING CLERK [facility] SODIUM S/P/B 135(L) 136 - 145 MMOL/L 03/05/2023 2:50 PM [facility] POTASSIUM S/P/B 4.5 3.5 - 5.1 MMOL/L 03/05/2023 2:50 PM [facility] Comment:SLIGHT HEMOLYSIS, RE SULT MAY BE AFFECTED. CHLORIDE S/P/B 106 100 - 108 MMOL/L 03/05/2023 2:50 PM [facility] CO2 27.4 21 - 32 MMOL/L 03/05/2023 2:50 PM [facility] CALCIUM S/P/B 9.3 8.5 - 10.1 MG/DL 03/05/2023 2:50 PM [facility] BILIRUBIN TOTAL S/P/B 0.5 0.2 - 1.2 MG/DL 03/05/2023 2:50 PM [facility] Comment: THIS ASSAY IS NOT RECOMMENDED FOR PATIENTS UNDERGOING TREATMENT WITH ELTROMBOPAG DUE TO THE POTENTIAL FOR FALSELY ELEVATED RESULTS. TOTAL PROTEIN S/P/B 9.0(H) 6.4 - 8.2 G/DL 03/05/2023 2:50 PM [facility] ALBUMIN S/P/B 3.2(L) 3.4 - 5.0 G/DL 03/05/2023 2:50 PM [facility] AST 32 15 - 37 U/L 03/05/2023 2:50 PM [facility] Comment:SLIGHT HEMOLYSIS, RE SULT MAY BE AFFECTED. ALT 33 14 - 55 U/L 03/05/2023 2:50 PM [facility] ALKALINE PHOSPHATASE S/P/B 171(H) 50 - 136 U/L 03/05/2023 2:50 PM [facility] ANION GAP 1.6(L) 5 - 15 MMOL/L 03/05/2023 2:50 PM [facility] BUN CREATININE RATIO 17.6 6 - 26 03/05/2023 2:50 PM PACKAGING CLERK [facility] A/G RATIO 0.6(L) 1.0 - 2.0 RATIO 03/05/2023 2:50 PM [facility] GFR ESTIMATE 62(L) >90 ML/MIN/1.7 3 M2 03/05/2023 2:50 PM PACKAGING CLERK [facility] Comment: NOTE: eGFR is not calculated for patients <18 years of age. This is an estimated GFR calculation using the new CKD EPI creatinine equation without race and so does not require a correction factor for race. This estimated GFR should not be used for calculating drug doses. 03/05/2023 2:09 PM PACKAGING CLERK Yasmin Tomlin PA-C LABORATORY Final Resul t [facility] [address] [place] [address], * (ABNORMAL) CBC W/DIFF AUTOMATED (03/05/2023 2:09 PM PACKAGING CLERK) WBC 9.6 4.5 - 11.0 x10'3/uL 03/05/2023 2:27 PM [facility] RBC 4.15(L) 4.20 - 5.40 x10'6/uL 03/05/2023 2:27 PM PACKAGING CLERK [facility] HGB 12.4 12.0 - 16.0 G/DL 03/05/2023 2:27 PM PACKAGING CLERK [facility] HCT 36.4(L) 38.0 - 48.0 % 03/05/2023 2:27 PM [facility] MCV 87.7 81.0 - 99.0 FL 03/05/2023 2:27 PM [facility] MCH 29.9 27.0 - 31.0 PG 03/05/2023 2:27 PM [facility] MCHC 34.1 32.0 - 36.0 G/DL 03/05/2023 2:27 PM [facility] RDW 12.9 11.5 - 14.5 % 03/05/2023 2:27 PM [facility] PLT 322 130 - 400 x10'3/uL 03/05/2023 2:27 PM [facility] MPV 11.3 9.3 - 12.2 FL 03/05/2023 2:27 PM [facility] DIFFERENTIAL TYPE AUTOMATED DIFFERENTIAL 03/05/2023 2:27 PM [facility] NEUTROPHILS % 66.9 % 03/05/2023 2:27 PM [facility] LYMPHOCYTES % 27.0 % 03/05/2023 2:27 PM [facility] MONOCYTES % 4.4 % 03/05/2023 2:27 PM [facility] EOSINOPHILS 0.9 % 03/05/2023 2:27 PM [facility] BASOPHILS 0.5 % 03/05/2023 2:27 PM [facility] IMMATURE GRANS % 0.3 % 03/05/19 2:27 PM [facility] ABS. NEUTROPHILS TOTAL 6.41 1.80 - 7.70 x10'3/uL 03/05/2023 2:27 PM [facility] ABS. LYMPHOCYTES 2.59 1.00 - 4.80 x10'3/uL 03/05/2023 2:27 PM [facility] ABS. MONOCYTES 0.42 0.24 - 0.86 x10'3/uL 03/05/2023 2:27 PM [facility] ABS. EOSINOPHILS 0.09 0.04 - 0.36 x10'3/uL 03/05/2023 2:27 PM PACKAGING CLERK [facility] ABS. BASOPHILS 0.05 0.01 - 0.08 x10'3/uL 03/05/2023 2:27 PM PACKAGING CLERK [facility] ABS. IMMATURE GRANULOCYTES 0.03 0.00 - 0.49 x10'3/uL 03/05/2023 2:27 PM PACKAGING CLERK [facility] 03/05/2023 2:09 PM PACKAGING CLERK Yasmin Tomlin PA-C LABORATORY Final Resul t Performing Organization Address [facility] Co de Phone Number [facility] [address] [place] [address], * (ABNORMAL) CULTURE URINE (03/05/2023 1:55 PM PACKAGING CLERK) SPEC DESCRIPTION URINE CLEAN CATCH 03/05/2023 4:19 PM PACKAGING CLERK [facility] SPECIAL REQUESTS NO SPECIAL REQUEST 03/05/2023 4:19 PM [facility] CULTURE RESULT 10,000-49,0 00 COL/ML ENTEROCOCCU S SPECIES (A) 03/08/2023 7:28 AM PACKAGING CLERK [facility] URINE SPECIMEN OBTAINED BY CLEAN CATCH PROCEDURE / Unknown 03/05/2023 1:55 PM PACKAGING CLERK 03/05/2023 9:33 PM PACKAGING CLERK Narrative Organism Antibiotic Method Susceptibility Enterococcus species AMPICILLIN JESSI (VITEK) <=2: Sensitive Enterococcus species NITROFURANTOIN JESSI (VITEK) <=16: Sensitive Enterococcus species GENT. SYNERGY SCREEN JESSI (VITEK) Resistant Enterococcus species PENICILLIN G JESSI (VITEK) 8: Sensitive Enterococcus species LEVOFLOXACIN JESSI (VITEK) >=8: Resistant Janneth MARIE MICROBIOLOGY - GENERAL ORDERA BLES Final Result [facility] [address] [place] [address], * (ABNORMAL) URINALYSIS (03/05/2023 1:55 PM PACKAGING CLERK) SPECIMEN TYPE URINE CLEAN CATCH 03/05/2023 1:54 PM PACKAGING CLERK [facility] COLOR (U) LIGHT YELLOW 03/05/2023 2:54 PM PACKAGING CLERK [facility] TRANSPARENCY TURBID 03/05/2023 2:54 PM PACKAGING CLERK [facility] SPECIFIC GRAVITY (U) 1.011 1.001 - 1.030 03/05/2023 2:54 PM PACKAGING CLERK [facility] U PH 6.0 5.0 - 9.0 03/05/2023 2:54 PM PACKAGING CLERK [facility] LEUKOCYTES (U) 500(A) NEGATIVE 03/05/2023 2:54 PM PACKAGING CLERK [facility] NITRITES NEGATIVE NEGATIVE 03/05/2023 2:54 PM PACKAGING CLERK [facility] PROTEIN RANDOM (U) 100(H) <30 MG/DL 03/05/2023 2:54 PM [facility] GLUCOSE (U) 100(A) NORMAL MG/DL 03/05/2023 2:54 PM PACKAGING CLERK [facility] KETONES MG/DL (U) NEGATIVE NEGATIVE MG/DL 03/05/2023 2:54 PM PACKAGING CLERK [facility] UROBILINOGEN NORMAL NORMAL MG/DL 03/05/2023 2:54 PM PACKAGING CLERK [facility] BILIRUBIN (U) NEGATIVE NEGATIVE MG/DL 03/05/2023 2:54 PM [facility] BLOOD (U) 2+(A) NEGATIVE 03/05/2023 2:54 PM [facility] CULTURE & SENSITIVITY INDICATED? SPECIMEN SETUP FOR CULTURE 03/05/2023 2:54 PM PACKAGING CLERK [facility] WBC/HPF >100(H) <6 /HPF 03/05/2023 2:54 PM PACKAGING CLERK [facility] RBC/HPF 10(H) <6 /HPF 03/05/2023 2:54 PM PACKAGING CLERK [facility] BACTERIA (U) RARE(A) NONE /HPF 03/05/2023 2:54 PM PACKAGING CLERK [facility] SQUAMOUS EPITHELIALS RARE /HPF 03/05/2023 2:54 PM PACKAGING CLERK [facility] URINE SPECIMEN OBTAINED BY CLEAN CATCH PROCEDURE / Unknown 03/05/2023 1:55 PM PACKAGING CLERK us Yasmin Tomlin PA-C URINE ORDERABLES Final Resu lt [facility] [address] [place] [address], [place] [phone] documented in this encounter Visit Diagnoses Diagnosis [...] in 24 hours. Given 03/06/2023 11:31 PM PACKAGING CLERK 650 mg amLODIPine (NORVASC) tablet 10 mg 10 mg, Oral, Nightly at bedtime, First dose on Sun03/05/23 at 2100, Until Discontinued Given 03/08/2023 8:17 PM PACKAGING CLERK 10 mg Given 03/07/2023 9:16 PM PACKAGING CLERK 10 mg Given 03/06/2023 8:20 PM PACKAGING CLERK 10 mg atorvastatin (LIPITOR) tablet 20 mg 20 mg, Oral, Nightly at bedtime, First dose on Sun03/05/23 at 2100, Until Discontinued Given 03/08/2023 8:17 PM PACKAGING CLERK 20 m g Given 03/07/2023 9:16 PM PACKAGING CLERK 20 mg Given 03/06/2023 8:20 PM PACKAGING CLERK 20 mg bisacodyl (DULCOLAX) suppository 10 mg [...] at 1615 New Bag 03/05/2023 5:07 PM PACKAGING CLERK 1 g 100 mL/hr cefTRIAXone (ROCEPHIN) 1 g in sodium chloride 0.9 % 50 mL IVPB 1 g, Intravenous, at 100 mL/hr, Every 24 hours, First dose on Sun03/06/23 at 1615, Until Discontinued New Bag 03/06/2023 4:11 PM PACKAGING CLERK 1 g 100 mL/hr dextrose 10 % [...] Sun03/07/23 at 1700 Given 03/07/2023 12:58 PM PACKAGING CLERK 25 mg Given 03/06/2023 11:31 PM PACKAGING CLERK 25 mg Given 03/06/2023 5:38 PM PACKAGING CLERK 25 mg diphenhydrAMINE (BENADRYL) capsule 25 mg 25 mg, Oral, Every 6 hours PRN, Itching, Allergies, Starting on Sun03/07/23 at 2153, Until Sun03/08/23 at 2152 Given 03/08/2023 5:07 PM PACKAGING CLERK 25 mg Given 03/07/2023 10:00 PM PACKAGING CLERK 25 mg diphenhydrAMINE (BENADRYL) injection 25 mg 25 mg, Intravenous, Once, 1 dose, On Sun03/05/23 at 1600, For IV administration, give no faster than 25 mg/min. Given 03/05/2023 4:13 PM PACKAGING CLERK 25 mg glucagon injection 1 mg 1 [...] least 2-3 minutes. Given 03/08/2023 5:07 PM PACKAGING CLERK 0.5 mg Given 03/07/2023 9:22 PM PACKAGING CLERK 0.5 mg Given 03/07/2023 12:58 PM PACKAGING CLERK 0.5 mg HYDROmorphone (DILAUDID) injection 0.5 mg [...] 1700, Until Discontinued Given 03/08/2023 5:03 PM PACKAGING CLERK 60 Units Right Arm Given 03/07/2023 5:22 PM PACKAGING CLERK 60 Units Ri ght Arm Given 03/06/2023 5:38 PM PACKAGING CLERK 60 Units Ri ght Lower Abdomen insulin aspart protamine-insulin aspart (NOVOLOG 70/30) injection 70 Units 70 Units, Subcutaneous, Daily with breakfast, First dose on Sun03/06/23 at 0800, Until Discontinued Given 03/09/2023 9:07 AM PACKAGING CLERK 70 Units Right Arm Given 03/08/2023 9:41 AM PACKAGING CLERK 70 Units Ri ght Arm Given 03/07/2023 8:37 AM PACKAGING CLERK 70 Units Ri ght Arm insulin lispro [...] and Call Physician] Given 03/08/2023 12:12 PM PACKAGING CLERK 2 Units Left Arm Given 03/07/2023 12:52 PM PACKAGING CLERK 4 Units L eft Arm Given 03/06/2023 5:38 PM PACKAGING CLERK 2 Units Ri ght Lower Abdomen insulin [...] and Call Physician] Given 03/08/2023 8:17 PM PACKAGING CLERK 3 Units Left Arm iopamidol (ISOVUE-370) 76 % injection 100 mL 100 mL, Intravenous, IMG once as needed, Contrast, 1 dose, Starting on Sun03/05/23 at 1518, Until Sun03/05/23 at 1518 Given 03/05/2023 3:18 PM PACKAGING CLERK 100 mLs lisinopril (PRINIVIL) tablet 20 mg 20 mg, Oral, Every evening, First dose on Sun03/05/23 at 2100, Until DiscontinuedIndications:hypertension Given 03/08/2023 8:17 PM PACKAGING CLERK 20 mg Given 03/07/2023 9:16 PM PACKAGING CLERK 20 mg Given 03/06/2023 8:20 PM PACKAGING CLERK 20 mg morphine injection 2 mg 2 mg, Intravenous, Once, 1 dose, On Sun03/05/23 at 1445 Given 03/05/2023 4:12 PM PACKAGING CLERK 2 mg morphine injection 2 mg 2 mg, Intravenous, Every 3 hours PRN, Moderate pain (Scale 4 - 7), Severe pain (Scale 8 - 10), Starting on Sun03/05/23 at 1657, Until Sun03/06/23 at 0140 Given 03/05/2023 10:07 PM PACKAGING CLERK 2 mg Given 03/05/2023 6:48 PM PACKAGING CLERK 2 mg naLOXone (NARCAN) injection 0.4 mg 0.4 mg, Intravenous, As needed, Opioid reversal, Starting on Sun03/05/23 at 1622, Until Sun03/09/23 at 1607 ondansetron (ZOFRAN) injection 4 mg 4 mg, Intravenous, Once, 1 dose, On Sun03/05/23 at 1445, IV push over 2-5 minutes. Given 03/05/2023 4:13 PM PACKAGING CLERK 4 mg pantoprazole EC (PROTONIX) tablet 20 mg 20 mg, Oral, Daily, First dose on Sun03/06/23 at 0900, Until Discontinued, Do not break, chew, or crush. Given 03/09/2023 7:56 AM PACKAGING CLERK 20 mg Given 03/08/2023 9:41 AM PACKAGING CLERK 20 mg Given 03/07/2023 8:30 AM PACKAGING CLERK 20 mg phenazopyridine tablet 190 mg 190 mg, Oral, 3 times daily PRN, Pain, Starting on Sun03/05/23 at 1848, Until Sun03/09/23 at 1607, Give after meals. May discolor urine (orange/yellow); will stain fabric. Given 03/07/2023 9:16 PM PACKAGING CLERK 190 mg Given 03/06/2023 7:54 AM PACKAGING CLERK 190 mg Given 03/05/2023 9:58 PM PACKAGING CLERK 190 mg piperacillin-tazobactam (ZOSYN) 3.375 g in sodium chloride 0.9 % 50 mL IVPB 3.375 g, Intravenous, Administer over 30 Minutes, Once, 1 dose, On Sun03/07/23 at 1500, Administer over 30 minutes. New Bag 03/07/2023 3:42 PM PACKAGING CLERK 3.375 g 100 mL/hr piperacillin-tazobactam (ZOSYN) 3.375 g in sodium chloride 0.9 % 50 mL IVPB 3.375 g, Intravenous, Administer over 240 Minutes, Every 8 hours, First dose on Sun03/07/23 at 2100, Until Discontinued, Administer over 4 hours (extended infusion). New Bag 03/09/2023 7:56 AM PACKAGING CLERK 3.375 g 12.5 mL/hr New Bag 03/08/2023 11:18 PM PACKAGING CLERK 3.375 g 12.5 mL/hr New Bag 03/08/2023 2:01 PM PACKAGING CLERK 3.375 g 12.5 mL/hr polyethylene glycol (GLYCOLAX) packet 1 packet 1 packet, Oral, Daily as needed, Constipation, Starting on Sun03/05/23 at 1619, Until Sun03/09/23 at 1607, Dissolve entire packet in 240 mL of water potassium chloride CR (K-TAB) tablet 40 mEq 40 mEq, Oral, Once, 1 dose, On Sun03/08/23 at 0830, Do not break, chew, or crush. Given 03/08/2023 9:40 AM PACKAGING CLERK 40 mEq sodium chloride 0.9% bolus infusion 500 mL 500 mL, Intravenous, Administer over 60 Minutes, Once, 1 dose, On Sun03/05/23 at 1600 New Bag 03/05/2023 4:13 PM PACKAGING CLERK 500 mLs sodium chloride 0.9% infusion at 50 mL/hr, Intravenous, Once, 1 dose, On Sun03/06/23 at 1400 New Bag 03/06/2023 4:53 PM PACKAGING CLERK 50 mL/hr documented in this encounter Active and Recently Administered Medications Times are shown in PACKAGING CLERK. Scheduled Medication Order 03/07/2023 03/08/2023 03/09/2023 amLODIPine [...] Total Score: 0 03/08/19 22 9:30 AM PACKAGING CLERK documented as of this encounter Care Teams Vest Busheler Relationship Specialty Start Date End Date Yasmin Segura II, MD [address] [place] [address] PCP - General FAMILY PRACTICE 03/09/21 [place] [address] [place] [address] PODIATRY/SURGERY 05/05/22 documented as of this encounter
--- OUTSIDE RECORDS SUMMARY | 2024-03-03 01:19 | XMS_ITS | Encounter Summary ---
Author Organization [facility] Address [address] [place] [address]. [place] [address] [place] [address] Care Team Providers Care Hydramatic Mechanic Name Role Phone Colton SILVEIRA MD, Abiodun Rushing Primary Care Provider Victoriano Langston MD Unavailable [phone] Reason for Visit * Auth/Cert (Routine) Specialty Diagnoses / Procedures Referred By Contac t Referred To Contact Diagnoses Peptic ulcer Epigastric abdominal pain peptic ulcer, epigastric pain Procedures UPPER GI ENDOSCOPY,DIAGNOSIS EGD Gurinder Saldivar MD [address] [address] Phone: tel: fax: Referral ID Status Reason Start Date Expiration Date Visits Re quested Visits Authorized [id number] 1 1 Encounter Details Date Type Department Care Team (Late st Contact Info) Description 12/25/2022 11:37 AM HISTOPATH TECH Anesthesia Event [facility] Endo/GI [place], [place] [id number] Douglas Loja MD [address] [place], [place] [id number] Anesthesia Record Procedure Summary Procedure Name Responsible Anesthesiologist Anesthesia Start Time Anesthesia Stop Time EGD Douglas Loja MD 12/25/22 1137 12/25/22 1 147 Events Date Time Event Comment 12/25/2022 1044 1044 AN Anesthesia Prepped 1114 AN AUTO SPECIALTY SERVICES MANAGER Prepped 1137 An Start Patient ID and [...] Health Questionnaire-2 Score 0 12/13/2022 [facility] - [...] Postoperative Hydration: euvolemic No notable events documented. OPATH TECH * Anesthesia Preprocedure Evaluation - Douglas Loja MD - 12/25/2022 10:42 AM CST Anesthesia ROS/MED History Reviewed: Patient summary , ECG, Family history anesthesia, Anesthesia history , Medications , Labs , Images/Studies Pre-Anesthetic State: alert, awake and responds appropriately no history of anesthetic complications Pulmonary (-) COPD, sleep apnea, asthma Cardiovascular (+) hypertension, Peripheral vascular disease, hyperlipidemia(-) past RI, CHF, arrhythmia ROS comment: ECHO ++++++++++++++++++++++++++++++++++++ SUMMARY: [...] date: Charcot foot due to diabetes mellitus ([facility]/HCC) ([facility]/HCC) Comment: LEFT FOOT No date: Constipation No date: COVID-19 No date: Diabetes mellitus ([facility]) ([facility]) No date: Diabetic neuropathy ([facility]) ([facility]) No date: Gastric ulcer No date: High [...] patient of whom consent was obtained. . OPATH TECH documented in this encounter Plan of Treatment Upcoming Encounters Date Type Department Care Team (Late st Contact Info) Description 03/14/2024 11:45 AM HISTOPATH TECH Office Visit [facility]-[address] [phone] Marvin Mckeon MD [facility] [address] [place] [address] 03/20/2024 11:30 AM HISTOPATH TECH Office Visit [facility] - [place] [address] [place] [phone] Abiodun Segura II, MD [address] [place] [address] documented as of this encounter Goals Goal [...] 1433, Pre-Op New Bag 12/25/2022 11:37 AM HISTOPATH TECH 50 mL/hr lidocaine (PF) (XYLOCAINE) 2 % injection Intravenous, PRN, Starting on Sun12/25/22 at 1142, Until Sun12/25/22 at 1147, Anesthesia Intra-Op Given 12/25/2022 11:42 AM HISTOPATH TECH 100 mg propofol (DIPRIVAN) IV bolus Intravenous, PRN, Starting on Sun12/25/22 at 1142, Until Sun12/25/22 at 1147, Anesthesia Intra-Op Given 12/25/2022 11:42 AM HISTOPATH TECH 80 mg documented in this encounter Additional Health Concerns Assessment Noted Time PHQ-9 Depression Total Score: 0 03/08/19 9:30 AM HISTOPATH TECH documented as of this encounter Care Teams Hydramatic Mechanic Relationship Specialty Start Date End Date Abiodun Segura II, MD [address] [place] [address] PCP - General FAMILY PRACTICE 03/09/21 [place] [address] [place] [address] PODIATRY/SURGERY 05/05/22 documented as of this encounter
--- OUTSIDE RECORDS SUMMARY | 2024-03-03 01:19 | XMS_ITS | Encounter Summary ---
Author Organization [facility] Address [address] [place] [address]. [place] [address] [place] [address] Care Team Providers Care Complex Human Resources Manager Name Role Phone Colton SILVEIRA MD, Abiodun Rushing Primary Care Provider Victoriano Langston MD Unavailable [phone] Reason for Visit * Reason Onset Date Comments Follow Up Call 03/05/2023 Patient admitted to [facility] from 03/05-03/09/23 Encounter Details Date Type Department Care Team (Latest Contact Info) Description 03/12/2023 Hospital [facility] [place] [address] Ryanne Lambert, YINA Follow Up Call (Patient admitted to [facility] from 03/05-03/09/23) Social History Tobacco Use Types Packs/Day Years Used Date Smoking Tobacco: Never Smokeless Tobacco: Never Alcohol Use Standard Drinks/Week Comments Not Currently 0 (1 standard drink = 0.6 oz pur e alcohol) few times per year [facility] Utilities Answer Date Recorded In the past 12 months has e [employer], gas, oil, or water [employer] threatened to shut off services in your [...] st Contact Info) Description 03/14/2024 11:45 AM COMMUNITY OUTREACH ADVOCATE Office Visit [facility] [phone] Marvin Mckeon MD [address] [place], [place] [phone] 03/20/2024 11:30 AM COMMUNITY OUTREACH ADVOCATE Office Visit [facility] Family Medicine - [place] 100 [place] [phone] Abiodun Segura II, MD 100 [place] [address] documented as of this encounter Goals Goal Patient Goal Type Associated Problems Recent Progress Patient-Stated? Author Family - family caregiver with be involved in care transitions and discharge planning Lifestyle No Natty Cheek, RN documented as of this encounter Visit Diagnoses Not on filedocumented in this encounter Additional Health Concerns Assessment Noted Time PHQ-9 Depression Total Score: 0 03/08/19 22 9:30 AM COMMUNITY OUTREACH ADVOCATE documented as of this encounter Care Teams Complex Human Resources Manager Relationship Specialty Start Date End Date Abiodun Segura II, MD [address] [place] [phone] PCP - General FAMILY PRACTICE 03/09/21 [place] [address] [place] [address] PODIATRY/SURGERY 05/05/22 documented as of this encounter
--- OUTSIDE RECORDS SUMMARY | 2024-03-03 01:19 | XMS_ITS | Encounter Summary ---
Author Organization [facility] Address [address] [place] [address]. [place] [address] [place] [address] Care Team Providers Care Sponge Packer Name Role Phone Colton SILVEIRA MD, Yasmin Rushing Primary Care Provider Victoriano Langston MD Unavailable [phone] Reason for Visit * Reason Comments Lab Results Patient presents to follow up on recent lab results Encounter Details Date Type Department Care Team (Late st Contact Info) Description 02/16/2023 1:20 PM IMAGING TECHNICIAN Office Visit [facility] Family Medicine - [place] [phone] Yasmin Valenzuela II, MD [address] [place] [address] Lab Results (Patient presents to follow [...] place to sleep or slept in a longterm (including now)? No 11/10/2022 Comments No Sex and Gender Information Value Date Recorded Sex Assigned at Female 12/17/2021 2:07 AM CDT Legal Sex Female 2:58 PM CDT Gender Identity Female 12/17/2021 2:07 AM CDT Sexual Orientation Straight 12/17/2021 2: 07 AM CDT documented as of this encounter Last Filed Vital Signs Vital Sign Reading Time Taken Comments Blood Pressure 131/84 02/16/2023 1:30 PM IMAGING TECHNICIAN Pulse 89 02/16/2023 1:30 PM IMAGING TECHNICIAN Temperature 37.1 ??C (98.7 ??F) 02/16/2023 1:30 PM CS T Respiratory Rate - - Oxygen Saturation 99% 02/16/2023 1:30 PM IMAGING TECHNICIAN Inhaled Oxygen Concentration - - Weight 89.4 kg (197 lb) 02/16/2023 1:30 PM IMAGING TECHNICIAN Height - - Body Mass Index 31.8 [...] from the original note were not included. [facility] [address] [address] OFFICE FOLLOW UP NOTE Encounter Date: 02/16/2023 [...] other left toe(s) (HHS/HCC) (CMS/HCC) Atherosclerosis of [place] arteries of extremities with intermittent claudication, bilateral [...] file Stress: No Stress Concern Present (09/03/2022) [place] [employer]ational [employer] - Occupational Stress Questionnaire [...] with long- term current use of insulin ([facility]) ([facility]) 2. Primary hypertension 3. Hypercholesteremia 4. Chronic bilateral low back pain without sciatica XR LUMB SPINE AP+LAT ONLY 5. Left hip pain XR HIP LT 2V 6. Acquired absence of other left toe(s) ([facility]) ([facility]) 7. Vision decreased Plan: Orders Placed This Encounter Medications clindamycin (CLEOCIN) 300 MG capsule 1. Type 2 diabetes mellitus with diabetic neuropathic arthropathy, with long- term current use of insulin ([facility]) ([facility]) Patient's hemoglobin A1c remains above goal. This [...] the day of the encounter. This includes cuvv-ps-giwg and bjd-ihwo-lg-face time I provided on the day of the encounter & excludes time spent performing separately reportable services. There are no discontinued medications. YASMIN VALENZUELA MD 02/16/2023 Portions of this note were dictated using [employer] speech recognition software. Occasional wrong wordor sound-alike substitutions may have occurred due to the inherent limitations of voice recognition software. Please read the chart carefully and recognize, using context, where the substitutions may have occurred. ING TECHNICIAN documented in this encounter Plan of Treatment Upcoming Encounters Date Type Department Care Team (Late st Contact Info) Description 03/14/2024 11:45 AM IMAGING TECHNICIAN Office Visit [facility] [phone] Marvin Mckeon MD [address] [facility] [address] [place], [place] [phone] 03/20/2024 11:30 AM IMAGING TECHNICIAN Office Visit [facility] Family Medicine - [place] 100 [place] [phone] Yasmin Valenzuela II, MD 100 [place], [place] [phone] documented as of this encounter Goals Goal Patient Goal Type Associated Problems Recent Progress Patient-Stated? Author Family - family caregiver with be involved in care transitions and discharge planning Lifestyle No Natty Cheek, RN documented as of this encounter Results * XR HIP LT 2V (02/28/2023 3:35 PM IMAGING TECHNICIAN) Anatomical Region Laterality Modality Hip Radiographic Shelli ging 03/03/2023 8:57 AM IMAGING TECHNICIAN Impressions 03/03/2023 8:58 AM IMAGING TECHNICIAN IMPRESSION: 1. ??No acute bony abnormality. 2. ??Vascular calcification. Ordered By: YASMIN VALENZUELA II Interpreted By: Cali Parada MD, 03/03/2023 8:57 AM Narrative 03/03/2023 8:58 AM IMAGING TECHNICIAN Examination: Left hip, 2 views Exam time: [...] LUMB SPINE AP+LAT ONLY (02/28/2023 3:35 PM IMAGING TECHNICIAN) Anatomical Region Laterality Modality Spine Radiographic Shelli ging 03/03/2023 8:58 AM IMAGING TECHNICIAN Impressions 03/03/2023 9:00 AM IMAGING TECHNICIAN IMPRESSION: Degenerative disc disease, most notable at L1-L2 and L5-S1, slightly worsened since 2020. Ordered By: YASMIN VALENZUELA II Interpreted By: Cali Parada MD, 03/03/2023 8:58 AM Narrative 03/03/2023 9:00 AM IMAGING TECHNICIAN Examination: X-ray lumbar spine, 2 views. Exam [...] arthropathy, with long-term current use of insulin ([facility])- Primary Primary hypertension Unspecified essential hypertension Hypercholesteremia Pure hypercholesterolemia Chronic bilateral low back pain without sciatica Left hip pain Pain in joint, pelvic region and thigh Acquired absence of other left toe(s) ([facility]) Vision decreased Unspecified visual loss Chronic bilateral low back pain without sciatica Left hip pain Pain in joint, pelvic region and thigh documented in this encounter Additional Health Concerns Assessment Noted Time PHQ-9 Depression Total Score: 0 03/08/19 9:30 AM IMAGING TECHNICIAN documented as of this encounter Care Teams Sponge Packer Relationship Specialty Start Date End Date Yasmin Valenzuela II, MD 100 [place] [address] PCP - General FAMILY PRACTICE 03/09/21 [place] [address] [place] [address] PODIATRY/SURGERY 05/05/22 documented as of this encounter
--- OUTSIDE RECORDS SUMMARY | 2024-03-03 01:19 | XMS_ITS | Encounter Summary ---
Author Organization [facility] Address [address] [place] [address]. [place] [address] [place] [address] Care Team Providers Care Lollypop Machine Operator Name Role Phone Colton SILVEIRA MD, Yasmin Rushing Primary Care Provider Victoriano Langston MD Unavailable [phone] Reason for Visit * Reason Comments UTI Patient presents wit h UTI Encounter Details Date Type Department Care Team (Late st Contact Info) Description 03/05/2023 12:40 PM REGENERATION OPERATOR Office Visit [facility] Family Medicine - [place] 100 [place] [address] Yasmin Valenzuela II, MD 100 [place] [address] UTI (Patient presents with UTI) Social History Tobacco Use Types Packs/Day Years Used Date Smoking Tobacco: Never Smokeless Tobacco: Never Tobacco Cessation:Counseling Given: No Alcohol Use Standard Drinks/Week Comments Not Currently 0 (1 standard drink = 0.6 oz pur e alcohol) few times per year [facility] Utilities Answer Date Recorded In the past 12 months has th e electric, gas, oil, or water [employer] threatened to shut off services in your [...] Health Questionnaire-2 Score 1 03/05/2023 [facility] - Occupational Stress Questionnaire Answer [...] Comments Blood Pressure 154/82 03/05/2023 12:22 PM REGENERATION OPERATOR Pulse 88 03/05/2023 12:08 PM REGENERATION OPERATOR Temperature 37.4 ??C (99.3 ??F) 03/05/2023 12:[address] Respiratory Rate - - Oxygen Saturation 99% 03/05/2023 12:08 PM REGENERATION OPERATOR Inhaled Oxygen Concentration - - Weight 90.3 kg (199 lb) 03/05/2023 12:08 PM REGENERATION OPERATOR Height - - Body Mass Index 32.12 [...] original note were not included. [facility] [address] [address] OFFICE FOLLOW UP NOTE Encounter Date: 03/05/2023 [...] other left toe(s) (HHS/HCC) (CMS/HCC) Atherosclerosis of [place] arteries of extremities with intermittent claudication, bilateral [...] file Stress: No Stress Concern Present (09/03/2022) [place] [place] [employer]ational Health - Occupational Stress Questionnaire [...] with long- term current use of insulin ([facility]) ([facility]) 4. Primary hypertension 5. Vision decreased 6. Acquired absence of other left toe(s) ([facility]) ([facility]) Plan: No orders of the defined [...] with long- term current use of insulin ([facility]) ([facility]) Patient's insulin was adjusted at last visit [...] 6. Acquired absence of other left toe(s) ([facility]/HCC) ([facility]/HCC) Patient will continue wound care as scheduled. I personally spent a total of 32 minutes on the day of the encounter. This includes wkxg-na-oosx and zcy-icsg-ih-face time I provided on the day of the encounter & excludes time spent performing separately reportable services. Medications Discontinued During This Encounter Medication Reason dulaglutide (TRULICITY) 4.5 MG/0.5ML injection (PEN) Formulary change YASMIN VALENZUELA MD 03/05/2023 Portions of this note were dictated using [employer] speech recognition software. Occasional wrong wordor sound-alike substitutions may have occurred due to the inherent limitations of voice recognition software. Please read the chart carefully and recognize, using context, where the substitutions may have occurred. NERATION OPERATOR documented in this encounter Plan of Treatment Upcoming Encounters Date Type Department Care Team (Late st Contact Info) Description 03/14/2024 11:45 AM REGENERATION OPERATOR Office Visit [facility] [phone] Marvin Mckeon MD [address] [facility] [address] [place] [address] 03/20/2024 11:30 AM REGENERATION OPERATOR Office Visit [facility] Family Medicine - [place] 100 [place] [phone] Yasmin Valenzuela II, MD 100 [place] [address] documented as of this encounter Goals Goal Patient Goal Type Associated Problems Recent Progress Patient-Stated? Author Family - family caregiver with be involved in care transitions and discharge planning Lifestyle Natty Angeles, RN documented as of this encounter Procedures Procedure Name Priority Date/Time Associated Diagnosis Comments URINE BACTERIA CULTURE Routine 03/05/2023 12:37 PM REGENERATION OPERATOR Cystitis Polyuria URINALYSIS AUTO DIP Routine 03/05/2023 Cystitis Polyuria documented in this encounter Results * (ABNORMAL) CULTURE URINE (03/05/2023 12:37 PM REGENERATION OPERATOR) CULTURE RESULT (A) [facility] Comment: ??CULTURE, URINE, ROUTINE ?Micro Number: ?[id number] ??Test Status: ? Final ??Specimen Source: ?? [...] CATCH PROCEDURE / Unknown 03/05/2023 12:37 PM REGENERATION OPERATOR 03/06/2023 1:44 AM REGENERATION OPERATOR Narrative Resulting Agency Comment Performing Organization Information: ?Site ID: [id number] ?Name: [facility] ?Address: [facility] [place] [address] ?Director: Robert Mendez us Yasmin Valenzuela II, MD MICROBIOLOGY - GENERAL ORDERABLES Final Result [facility] [address] [place] [address], * (ABNORMAL) URINALYSIS AUTO DIP (03/05/2023) COLOR [...] II, MD URINE ORDERABLES Final Result [facility] 100 [place] [address], documented in this encounter Visit Diagnoses Diagnosis Polyuria- Primary Cystitis Cystitis, unspecified Type 2 diabetes mellitus with diabetic neuropathic arthropathy, with long-term current use of insulin ([facility]) Primary hypertension Unspecified essential hypertension Vision decreased Unspecified visual loss Acquired absence of other left toe(s) ([facility]) documented in this encounter Additional Health Concerns Assessment Noted Time PHQ-9 Depression Total Score: 0 03/08/19 22 9:30 AM REGENERATION OPERATOR documented as of this encounter Care Teams Lollypop Machine Operator Relationship Specialty Start Date End Date Yasmin Valenzuela II, MD [address] [place] [address] PCP - General FAMILY PRACTICE 03/09/21 [place] [address] [place] [address] PODIATRY/SURGERY 05/05/22 documented as of this encounter
--- OUTSIDE RECORDS SUMMARY | 2024-03-03 01:19 | XMS_ITS | Encounter Summary ---
Author Organization [facility] Address [address] [place] [address]. [place] [address] [place] [address] Care Team Providers Care Reservation Clerk Name Role Phone Colton SILVEIRA MD, Abiodun Rushing Primary Care Provider Victoriano Langston MD Unavailable [phone] Encounter Details Date Type Department Care Team [...] st Contact Info) Description 03/14/2024 11:45 AM DRIVING TEACHER Office Visit [facility] [phone] Marvin Mckeon MD [facility] [address] [place] [address] 03/20/2024 11:30 AM DRIVING TEACHER Office Visit [facility] Family Medicine - [place] 100 [place] [phone] Abiodun Segura II, MD [address] [place] [address] documented as of this encounter Goals Goal Patient Goal Type Associated Problems Recent Progress Patient-Stated? Author Family - family caregiver with be involved in care transitions and discharge planning Lifestyle No Natty Cheek, RN documented as of this encounter Visit Diagnoses Not on filedocumented in this encounter Additional Health Concerns Assessment Noted Time PHQ-9 Depression Total Score: 0 03/08/19 22 9:30 AM DRIVING TEACHER documented as of this encounter Care Teams Reservation Clerk Relationship Specialty Start Date End Date Abiodun Segura II, MD 100 [place] [address] PCP - General FAMILY PRACTICE 03/09/21 [place] [address] [place] [address] PODIATRY/SURGERY 05/05/22 documented as of this encounter
--- OUTSIDE RECORDS SUMMARY | 2024-03-03 01:19 | XMS_ITS | Encounter Summary ---
Author Organization [facility] Address [address] [place] [address]. [place] [address] [place] [address] Care Team Providers Care Health Actuary Name Role Phone Colton SILVEIRA MD, Abiodun Rushing Primary Care Provider Victoriano Langston MD Unavailable [phone] Encounter Details Date Type Department Care Team [...] slept in a [facility] (including now)? No 11/10/2022 Comments No Sex [...] st Contact Info) Description 03/14/2024 11:45 AM SURGICAL ORDERLY Office Visit [facility] [phone] Marvin Mckeon MD [facility] [address] [place] [address] 03/20/2024 11:30 AM SURGICAL ORDERLY Office Visit [facility] Family Medicine - [place] 100 [place] [phone] Abiodun Segura II, MD [address] [place] [address] documented as of this encounter Goals Goal Patient Goal Type Associated Problems Recent Progress Patient-Stated? Author Family - family caregiver with be involved in care transitions and discharge planning Lifestyle No Natty Cheek, RN documented as of this encounter Visit Diagnoses Not on filedocumented in this encounter Additional Health Concerns Assessment Noted Time PHQ-9 Depression Total Score: 0 03/08/19 22 9:30 AM SURGICAL ORDERLY documented as of this encounter Care Teams Health Actuary Relationship Specialty Start Date End Date Abiodun Segura II, MD 100 [place] [address] PCP - General FAMILY PRACTICE 03/09/21 [place] [address] [place] [address] PODIATRY/SURGERY 05/05/22 documented as of this encounter
--- OUTSIDE RECORDS SUMMARY | 2024-03-03 01:19 | XMS_ITS | Encounter Summary ---
Author Organization [facility] Address [address] [place] [address]. [place], [place] [address] [place] [address] Care Team Providers Care Eyeglass Frames Polisher Name Role Phone Colton SILVEIRA MD, Abiodun Rushing Primary Care Provider Victoriano Langston MD Unavailable [phone] Encounter Details Date Type Department Care Team [...] Recorded In the past 12 months has [facility] [email or web address], gas, oil, or water [employer] threatened to shut off services in your [...] a senior living (including now)? No 03/06/2023 Comments No Sex [...] or making decisions? No 03/06/2023 3:39 PM LINEN ROOM CUSTODIAN Teresa Amaya RN Active * Because of a physical, mental, or emotional condition, do you have serious difficulty concentrating, remembering, or making decisions? Answer Entry Date Author Status No 11/10/2022 3:37 AM CDT Sunshine Talamantes RN Active documented in this encounter Plan of Treatment Upcoming Encounters Date Type Department Care Team (Late st Contact Info) Description 03/14/2024 11:45 AM LINEN ROOM CUSTODIAN Office Visit [facility] [phone] Marvin Mckeon MD [address] [facility] [address] [place] [phone] 03/20/2024 11:30 AM LINEN ROOM CUSTODIAN Office Visit [facility] Family Medicine - [place] 100 [place] [phone] Abiodun Segura II, MD 100 [place], [place] [phone] documented as of this encounter Goals Goal Patient Goal Type Associated Problems Recent Progress Patient-Stated? Author Family - family caregiver with be involved in care transitions and discharge planning Lifestyle No Natty Cheek RN documented as of this encounter Visit Diagnoses Not on filedocumented in this encounter Additional Health Concerns Assessment Noted Time PHQ-9 Depression Total Score: 0 03/08/19 9:30 AM LINEN ROOM CUSTODIAN documented as of this encounter Care Teams Eyeglass Frames Polisher Relationship Specialty Start Date End Date Abiodun Segura II, MD [address] [place] [phone] PCP - General FAMILY PRACTICE 03/09/21 [place] [address] [place] [address] PODIATRY/SURGERY 05/05/22 documented as of this encounter
--- OUTSIDE RECORDS SUMMARY | 2024-03-03 01:19 | XMS_ITS | Encounter Summary ---
Author Organization [facility] Address [address] [place] [address]. [place] [address] [place] [address] Care Team Providers Care Replanting Machine Operator Name Role Phone Colton SILVEIRA MD, Abiodun Rushing Primary Care Provider Victoriano Langston MD Unavailable [phone] Reason for Visit * Reason Onset Date Comments Advice 03/01/2023 Encounter Details Date Type Department Care Team (Late st Contact Info) Description 03/01/2023 Telephone [facility] Family Medicine - [place] [address] [place] [address] Abiodun Segura II, MD [address] [place] [address] Advice Social History Tobacco Use [...] Questionnaire-2 Score 0 12/13/2022 [facility] - Occupational Stress Questionnaire Answer Date [...] RN - 03/01/2023 4:26 PM CST FCO RY RIG ENGINE OPERATOR * Conchita Mancilla - 03/01/2023 4:21 PM CST Pt called back and I made an appt for her on Sunday 03/05 at 12:[address] Mercado RY RIG ENGINE OPERATOR * Sydney Cobos MA - 03/01/2023 2:38 PM CST Please advise/no appointments available RY RIG ENGINE OPERATOR * Cristela Pereira - 03/01/2023 1:23 PM CST Patient called and is having urine problems and thinks she has a UTI. No appt was available today and she is wanting to come and give a urine sample to get tested. Please call patient [phone] RY RIG ENGINE OPERATOR documented in this encounter Plan of Treatment Upcoming Encounters Date Type Department Care Team (Late st Contact Info) Description 03/14/2024 11:45 AM ROTARY RIG ENGINE OPERATOR Office Visit [facility] [phone] Marvin Mckeon MD Three [facility] [address] [place], [place] [phone] 03/20/2024 11:30 AM ROTARY RIG ENGINE OPERATOR Office Visit [facility] Family Medicine - [address] [phone] Abiodun Segura II, MD [address] [place] [address] documented as of this encounter Goals Goal Patient Goal Type Associated Problems Recent Progress Patient-Stated? Author Family - family caregiver with be involved in care transitions and discharge planning Lifestyle Natty Angeles, RN documented as of this encounter Visit Diagnoses Not on filedocumented in this encounter Additional Health Concerns Assessment Noted Time PHQ-9 Depression Total Score: 0 03/08/19 22 9:30 AM ROTARY RIG ENGINE OPERATOR documented as of this encounter Care Teams Replanting Machine Operator Relationship Specialty Start Date End Date Abiodun Segura II, MD [address] [place] [address] PCP - General FAMILY PRACTICE 03/09/21 [place] [address] [place] [address] PODIATRY/SURGERY 05/05/22 documented as of this encounter
--- OUTSIDE RECORDS SUMMARY | 2024-03-03 01:19 | XMS_ITS | Encounter Summary ---
Author Organization [facility] Address [address] [place] [address]. [place] [address] [place] [address] Care Team Providers Care Brake Lining Curer Name Role Phone Colton SILVEIRA MD, Abiodun Rushing Primary Care Provider Victoriano Langston MD Unavailable [phone] Reason for Visit * Reason Onset Date Comments TCM 03/13/2023 Encounter Details Date Type Department Care Team (Late st Contact Info) Description 03/13/2023 Telephone [facility] Family Medicine - [place] [address] [place] [address] Abiodun Segura II, MD [address] [place] [address] TCM Social History Tobacco Use Types Packs/Day Years Used Date Smoking Tobacco: Never Smokeless Tobacco: Never Alcohol Use Standard Drinks/Week Comments Not Currently 0 (1 standard drink = 0.6 oz pur e alcohol) few times per year [facility] Utilities Answer Date Recorded In the [...] 1 03/05/2023 [facility] - Occupational Stress Questionnaire Answer Date [...] medium complexity) Appointment Date: 03/19/23 Time: 11:10 L STORAGE WORKER documented in this encounter Plan of Treatment Upcoming Encounters Date Type Department Care Team (Late st Contact Info) Description 03/14/2024 11:45 AM METAL STORAGE WORKER Office Visit [facility]-[address] [phone] Marvin Mckeon MD Three [facility] [address] [place] [address] 03/20/2024 11:30 AM METAL STORAGE WORKER Office Visit [facility] Family Medicine - [address] [phone] Abiodun Segura II, MD [address] [place] [address] documented as of this encounter Goals Goal Patient Goal Type Associated Problems Recent Progress Patient-Stated? Author Family - family caregiver with be involved in care transitions and discharge planning Lifestyle No Natty Cheek, RN documented as of this encounter Visit Diagnoses Not on filedocumented in this encounter Additional Health Concerns Assessment Noted Time PHQ-9 Depression Total Score: 0 03/08/19 22 9:30 AM METAL STORAGE WORKER documented as of this encounter Care Teams Brake Lining Curer Relationship Specialty Start Date End Date Abiodun Segura II, MD [address] [place] [address] PCP - General FAMILY PRACTICE 03/09/21 [place] [address] [place] [address] PODIATRY/SURGERY 05/05/22 documented as of this encounter
--- OUTSIDE RECORDS SUMMARY | 2024-03-03 01:20 | XMS_ITS | Encounter Summary ---
Author Organization [facility] Address [address] [place] [address]. [place], [place] [address] [place] [address] Care Team Providers Care Streetsweeper Operator Name Role Phone Colton SILVEIRA MD, Abiodun Rushing Primary Care Provider Victoriano Langston MD Unavailable [phone] Encounter Details Date Type Department Care Team (Latest Contact Info) Description 12/12/2022 Scan [facility] INFO [facility] Scanned, Doc Med Group Social History Tobacco Use Types Packs/Day Years Used Date Smoking Tobacco: Never Smokeless Tobacco: Never Alcohol Use Standard Drinks/Week Comments Not Currently 0 (1 standard drink = 0.6 oz pur e alcohol) few times per year [facility] Utilities Answer Date Recorded In the past 12 months has [facility] [employer], gas, oil, or water [employer] threatened to shut off services in your [...] or making decisions? No 03/06/2023 3:39 PM MAILROOM ASSISTANT Teresa Amaya RN Active * Because of a physical, mental, or emotional condition, do you have serious difficulty concentrating, remembering, or making decisions? Answer Entry Date Author Status No 11/10/2022 3:37 AM CDT Sunshine Talamantes RN Active documented in this encounter Plan of Treatment Upcoming Encounters Date Type Department Care Team (Late st Contact Info) Description 03/14/2024 11:45 AM MAILROOM ASSISTANT Office Visit [facility]-[address] [phone] Marvin Mckeon MD Three [facility] [address] [place] [phone] 03/20/2024 11:30 AM MAILROOM ASSISTANT Office Visit [facility] Family Medicine - [place] [address] [place] [phone] Abiodun Segura II, MD [address] [place], [place] [phone] documented as of this encounter Goals Goal Patient Goal Type Associated Problems Recent Progress Patient-Stated? Author Family - family caregiver with be involved in care transitions and discharge planning Lifestyle No Natty Cheek RN documented as of this encounter Visit Diagnoses Not on filedocumented in this encounter Additional Health Concerns Assessment Noted Time PHQ-9 Depression Total Score: 0 03/08/19 9:30 AM MAILROOM ASSISTANT documented as of this encounter Care Teams Streetsweeper Operator Relationship Specialty Start Date End Date Abiodun Segura II, MD [address] [place] [phone] PCP - General FAMILY PRACTICE 03/09/21 [place] [address] [place] [address] PODIATRY/SURGERY 05/05/22 documented as of this encounter
--- OUTSIDE RECORDS SUMMARY | 2024-03-03 01:20 | XMS_ITS | Encounter Summary ---
Author Organization [facility] Address [address] [place] [address]. [place] [address] [place] [address] Care Team Providers Care Audio Visual Arts Director Name Role Phone Colton SILVEIRA MD, Abiodun Rushing Primary Care Provider Victoriano Langston MD Unavailable [phone] Reason for Visit * Reason Onset Date Comments Prior Authorization 12/14/2022 [id number] Encounter Details Date Type Department Care Team (Late st Contact Info) Description 12/14/2022 Telephone [facility] Multispecialty Care - [facility] [address] [facility], [address] [place] [phone] Karlo Saldivar MD 3 [facility] Mic [address] [place] [address] Prior Authorization ([id number]) Social History Tobacco Use Types Packs/Day Years [...] Recorded Patient Health Questionnaire-2 Score 0 12/13/2022 [facility] Occupat ional [facility] - Occupational Stress Questionnaire Answer [...] 19, 2022 11:14:21 AM EDT LENA YOUNGBLOOD [address] [place] [address] ID:[id number] :[id number]:F Referring Provider: KARLO SALDIVAR [address] [facility] [address], [place] [address] TIN:[id number] Servicing Facility: [facility] [address] [facility], [place] [address] Ph:[phone] TIN:[id number] Servicing Provider: KARLO SALDIVAR [address] [facility] [address], [place] [address] Ph:[phone] TIN:[id number] Category: Health Services Review Service: Surgical Facility: [facility] Certification: Initial Requested Dates: Dec 25, 2022 - Feb 18, 2023 Diagnosis codes: 1. K27.9 Peptic ulcer, site unspecified, unspecified as acute or chronic, without hemorrhage or perforation 2. R10.13 Epigastric pain Requested Services: 1. 23803: EGD REMOVAL TUMOR POLYP/OTHER LESION SNARE TECH Status: CERTIFIED Servicing Provider:KARLO SALDIVAR; TIN:[id number]; [place] [address] 1 2. 29108: EGD FLEX REMOVAL LESION(S) BY HOT BIOPSY FORCEPS Status: CERTIFIED Servicing Provider:KARLO SALDIVAR; TIN:[id number]; [place] [address] 1 3. 16650: DILATION OF STOMACH OUTLET USING A FLEXIBLE ENDOSCOPE Status: CERTIFIED Servicing Provider:KARLO SALDIVAR; TIN:[id number]; [place] [address] 1 4. 04278: BIOPSY OF ESOPHAGUS, STOMACH, AND/OR UPPER SMALL BOWEL USING A FLEXIBLE ENDOSCOPE Status: CERTIFIED Servicing Provider:KARLO SALDIVAR; TIN:[id number]; [place] [address] 1 5. 33139: DIAGNOSTIC EXAM OF ESOPHAGUS, STOMACH, AND/OR UPPER SMALL BOWEL USING A FLEXIBLE ENDOSCOPE Status: CERTIFIED Servicing Provider:KARLO SALDIVAR; TIN:[id number]; [place] [address] 1 Status: APPROVED Authorization #: [id number] Message: Payment is based on member eligibility, medical necessity review, where applicable and [facility] provider contractual agreement. Authorization does not guarantee payment. documented in this encounter Plan of Treatment Upcoming Encounters Date Type Department Care Team (Late st Contact Info) Description 03/14/2024 11:45 AM CHAIR SPRINGER Office Visit [facility]-[address] [phone] Marvin Mckeon MD [address] [facility] [address] [place], [place] [phone] 03/20/2024 11:30 AM CHAIR SPRINGER Office Visit [facility] Family Medicine - [place] [address] [place] [phone] Abiodun Segura II, MD [address] [place] [address] documented as of this encounter Goals Goal Patient Goal Type Associated Problems Recent Progress Patient-Stated? Author Family - family caregiver with be involved in care transitions and discharge planning Lifestyle No Natty Cheek, RN documented as of this encounter Visit Diagnoses Not on filedocumented in this encounter Additional Health Concerns Assessment Noted Time PHQ-9 Depression Total Score: 0 03/08/19 22 9:30 AM CHAIR SPRINGER documented as of this encounter Care Teams Audio Visual Arts Director Relationship Specialty Start Date End Date Abiodun Segura II, MD 100 [place] [address] PCP - General FAMILY PRACTICE 03/09/21 [place] [address] [place] [address] PODIATRY/SURGERY 05/05/22 documented as of this encounter
--- OUTSIDE RECORDS SUMMARY | 2024-03-03 01:20 | XMS_ITS | Encounter Summary ---
Author Organization [facility] Address [address] [place] [address]. [place], [place] [address] [place] [address] Care Team Providers Care Tombstone Erector Name Role Phone Colton SILVEIRA MD, Yasmin Rushing Primary Care Provider Victoriano Langston MD Unavailable [phone] Reason for Referral * Imaging (Urgent) - Closed Specialty Diagnoses / Procedures Referred By Contac t Referred To Contact RADIOLOGY Procedures NM RENAL SCAN W Micah Harmon PA 3 [facility] [address] [place] [address] Phone: tel: fax: Referral ID Status Reason Start Date Expiration Date Visits Re quested Visits Authorized [id number] Closed 11/10/2022 11/11/2023 1 1 * Imaging (Emergency) - Closed Specialty Diagnoses / Procedures Referred By Contac t Referred To Contact RADIOLOGY Procedures CT ABD+PEL W IV CON ONLY Erica Keating MD [address] [place] [address] Phone: tel: fax: Referral ID Status Reason Start Date Expiration Date Visits Re quested Visits Authorized [id number] Closed 11/09/2022 11/10/2023 1 1 Reason for Visit * Reason Comments Vomiting * Auth/Cert (Routine) Specialty Diagnoses / Procedures Referred By Lyla chaney Referred To Contact Diagnoses Vomiting Abdominal pain Intractable vomiting Intractable vomiting Procedures NONE Janelle Pimentel, DO 1 [place] [address] Phone: tel: fax: Referral ID Status Reason Start Date Expiration Date Visits Re quested Visits Authorized [id number] 1 1 Encounter Details Date Type Department Care Team (Late st Contact Info) Description 11/09/2022 9:12 PM CDT - 11/11/2022 4:47 PM CDT Emergency [facility] Med/Surg 5th [place], [place] [id number] Erica Keating MD [address] [place] [address] Janelle Pimentel, DO 1 [place], [place] [phone] Soraya Sanz MD [place], [place] [phone] (Work) Vomiting Discharge Disposition: Home or Self [...] Recorded Patient Health Questionnaire-2 Score 0 05/05/2022 [facility] - [...] of 11/09/22 ECG [address] 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 Signed by: Dr. oSraya Sanz MD [employer]uma[employer] Mix 75/25 (75-25) 100 [...] review of chart. Patient recently discharged from [facility] within the last 30 days (discharge date [...] Verified. PCP: Yasmin Segura II, MD. Insurance: [facility] Medicare Discharge needs: anticipate discharge home with no needs once stable. [facility] will continue to follow and assess for needs ongoing 11/10/22 9210 Referral Data Source of Information Chart review Patient Information Primary Caregiver Self Current living Situation Children Type of Residence Private residence Support System Immediate family Are you employed? Disabled Recent Hospitalization Recent Hospitalization within 30 days Yes (recently discharged from [facility] during Epic downtime) Baseline ADL's Functional Status Minimum assistance Active DME Walker;Wheelchair Behavior Oriented Communication Talks;Understands [place] Islander DC screening tool This is a screening [...] be discharged to: Home or Self care [place] Only - Criminal Background check [place] only - Is patient going to [facility]? 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: : 1970 Requested By: ERICA BAER Order Number: [id number] Reading MD: Measurements Intervals [place] Rate: 101 P: 7 MA: 169 QRS: 28 QRSD: 88 T: 56 QT: 321 QTc: 416 Interpretive Statements SINUS TACHYCARDIA NONSPECIFIC T-WAVE ABNORMALITY ABNORMAL RHYTHM ECG Compared to ECG 11/08/2022 10:31:14 Sinus rhythm no longer present T-wave abnormality still present EXAMINATION: DIURETIC RENAL SCINTIGRAPHY ACC# Date Time Exam [id number] Sep 15, 2016 12:39:00 [id number] RENAL IM/DIURET DATE OF STUDY: 09/15/2016 RADIOPHARMACEUTICAL: [...] note was dictated with the use of [employer] dictation software and was proofread to the best of my ability. If you have questions or find errors, please contact me via SEDLine. Thank you. WANDA LANGSTON APRN 11/10/2022 12:23 AM Cosigned by Janelle Pimentel DO at 11/10/2022 6:56 AM CDT Associated attestation - Janelle Pimentel DO - 11/10/2022 6:56 AM CDT I have seen and examined the patient, and discussed the plan of care with Wanda Langston [employer]. I reviewed her note and agree with [...] other left toe(s) (HHS/HCC) (CMS/HCC) Atherosclerosis of [place] arteries of extremities with intermittent claudication, bilateral [...] Charcot foot due to diabetes mellitus (HHS/HCC) ([facility]) LEFT FOOT Constipation COVID-19 Diabetes mellitus (HHS/HCC) ([facility]/HCC) Diabetic neuropathy (HHS/HCC) ([facility]/HCC) Gastric ulcer High cholesterol Hypertension Kidney [...] monitoring -------- Micah Aggarwal PA-C [facility] [address] [place] [address] Cosigned by Marciano Saunders MD at 11/10/2022 [...] encounter of 11/09/22 ECG 12 lead Narrative [place] Test Date: 2022-11-09 Pat Name: LENA YOUNGBLOOD Department: Room: 4 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 [place] [address] [place] [phone] Yasmin Segura II, MD [address] [place], [place] [phone] documented as of this encounter Goals Goal [...] - 99 mg/dL 11/11/2022 11:27 AM CDT [facility] 11/11/2022 11:2 3 AM CDT us Soraya Sanz MD POCT ORDERABLES - DEVICE Final Result [facility] [address] [place] [address], [place] [phone] * NM RENAL SCAN W LASIX (11/11/2022 [...] - 99 mg/dL 11/11/2022 8:07 AM CDT [facility] 11/11/2022 8:04 AM CDT us Soraya Sanz MD POCT ORDERABLES - DEVICE Final Result [facility] [address] [place] [address], [place] [phone] * (ABNORMAL) POCT glucose (11/10/2022 8:31 PM CDT) GLUCOSE POC 188(H) 70 - 99 mg/dL 11/10/2022 8:33 PM CDT [facility] 11/10/2022 8:31 PM CDT us Soraya Sanz MD POCT ORDERABLES - DEVICE Final Result [facility] [address] [place] [address], [place] [phone] * (ABNORMAL) POCT glucose (11/10/2022 4:51 PM CDT) GLUCOSE POC 169(H) 70 - 99 mg/dL 11/10/2022 4:57 PM CDT [facility] 11/10/2022 4:51 PM CDT us Soraya Sanz MD POCT ORDERABLES - DEVICE Final Result Performing Organization Address City/[facility]/ZIP Co de Phone Number [facility] [address] [place] [address], [place] [phone] * (ABNORMAL) POCT glucose (11/10/2022 3:59 PM CDT) GLUCOSE POC 215(H) 70 - 99 mg/dL 11/10/2022 4:01 PM CDT [facility] 11/10/2022 3:59 PM CDT us Soraya Sanz MD POCT ORDERABLES - DEVICE Final Result [facility] [address] [place] [address], [place] [phone] * (ABNORMAL) POCT glucose (11/10/2022 12:19 PM CDT) GLUCOSE POC 131(H) 70 - 99 mg/dL 11/10/2022 12:24 PM CDT [facility] 11/10/2022 12:1 9 PM CDT Soraya Sanz MD POCT ORDERABLES - DEVICE Final Result Performing Organization Address City/[facility]/ZIP Co de Phone Number [facility] [address] [place] [address], [place] [phone] * (ABNORMAL) POCT glucose (11/10/2022 8:18 AM CDT) GLUCOSE POC 132(H) 70 - 99 mg/dL 11/10/2022 8:25 AM CDT [facility] 11/10/2022 8:18 AM CDT Soraya Sanz MD POCT ORDERABLES - DEVICE Final Result Performing Organization Address [facility] Co de Phone Number [facility] [address] [place] [address], [place] [phone] * (ABNORMAL) URINALYSIS WI REFLEX TO CULTURE (11/10/2022 8:02 AM CDT) SPECIMEN TYPE URINE CLEAN CATCH 11/10/2022 8:05 AM CDT [facility] COLOR (U) COLORLESS 11/10/2022 8:13 AM CDT [facility] TRANSPARENCY CLEAR 11/10/2022 8:13 AM CDT [facility] SPECIFIC GRAVITY (U) 1.037(H) 1.001 - 1.030 11/10/2022 8:13 AM CDT [facility] U PH 6.0 5.0 - 9.0 11/10/2022 8:13 AM T [facility] LEUKOCYTES (U) NEGATIVE NEGATIVE 11/10/2022 8:13 AM T [facility] NITRITES NEGATIVE NEGATIVE 11/10/2022 8:13 AM T [facility] PROTEIN RANDOM (U) 30(H) <30 MG/DL 11/10/2022 8:13 AM T [facility] GLUCOSE (U) NORMAL NORMAL MG/DL 11/10/2022 8:13 AM T [facility] KETONES MG/DL (U) NEGATIVE NEGATIVE MG/DL 11/10/2022 8:13 AM [facility] UROBILINOGEN NORMAL NORMAL MG/DL 11/10/2022 8:13 AM [facility] BILIRUBIN (U) NEGATIVE NEGATIVE MG/DL 11/10/2022 8:13 AM T [facility] BLOOD (U) NEGATIVE NEGATIVE 11/10/2022 8:13 AM [facility] CULTURE & SENSITIVITY INDICATED? CULTURE IS NOT INDICATED 11/10/2022 8:13 AM [facility] WBC/HPF 1 <6 /HPF 11/10/2022 8:13 AM T [facility] RBC/HPF 2 <6 /HPF 11/10/2022 8:13 AM T [facility] SQUAMOUS EPITHELIALS RARE /HPF 11/10/2022 8:13 AM T [facility] URINE SPECIMEN OBTAINED BY CLEAN CATCH PROCEDURE / Unknown 11/10/2022 8:02 AM CDT us Wanda Langston [employer] URINE ORDERABLES Final Resu lt [facility] [address] [place] [address], * (ABNORMAL) MAGNESIUM (11/10/2022 6:50 AM CDT) MAGNESIUM 1.7(L) 1.8 - 2.4 MG/DL 11/10/2022 8:16 AM CDT [facility] 11/10/2022 6:50 AM CDT Janelle Pimentel DO LABORATORY Final Result [facility] [address] [place] [address], * (ABNORMAL) BASIC METABOLIC PANEL (11/10/2022 6:50 AM CDT) GLUCOSE 111(H) 70 - 99 MG/DL 11/10/2022 8:16 AM CDT [facility] BUN 14 7 - 18 MG/DL 11/10/2022 8:16 AM CDT [facility] CREATININE S/P/B 0.89 0.55 - 1.02 MG/DL 11/10/2022 8:16 AM CDT [facility] SODIUM S/P/B 138 136 - 145 MMOL/L 11/10/2022 8:16 AM CDT [facility] POTASSIUM S/P/B 3.7 3.5 - 5.1 MMOL/L 11/10/2022 8:16 AM CDT [facility] CHLORIDE S/P/B 107 100 - 108 MMOL/L 11/10/2022 8:16 AM CDT [facility] CO2 25.6 21 - 32 MMOL/L 11/10/2022 8:16 AM CDT [facility] CALCIUM S/P/B 8.5 8.5 - 10.1 MG/DL 11/10/2022 8:16 AM CDT [facility] ANION GAP 5.4 5 - 15 MMOL/L 11/10/2022 8:16 AM CDT [facility] BUN CREATININE RATIO 15.7 6 - 26 11/10/2022 8:16 AM CDT [facility] GFR ESTIMATE 78(L) >90 ML/MIN/1.7 3 M2 11/10/2022 8:16 AM CDT [facility] Comment: [...] CDT Janelle Pimentel DO LABORATORY Final Result [facility] [address] [place] [address], [place] [phone] * (ABNORMAL) POCT glucose (11/10/2022 1:20 AM CDT) GLUCOSE POC 205(H) 70 - 99 mg/dL 11/10/2022 1:21 AM CDT [facility] 11/10/2022 1:20 AM CDT us Janelle Pimentel DO POCT ORDERABLES - DEVICE Fin al Result [facility] [address] [place] [address], [place] [phone] * CT ABD+PEL W IV CON ONLY [...] CDT) 11/09/2022 10:5 4 PM CDT Narrative [facility] - 11/10/2022 5:53 AM CDT ?[place] ? [address] [facility] ? Test Date: ?2022-11-09 Pat Name: ? LENA YOUNGBLOOD ?Department: ?? 41 ? Room: ? A508 Gender: ? Female ? Lens Polisher Hand: ?? : ?1970 ? Requested By: ERICA BAER Order Number: [id number] ? Reading MD: ?? Alexei Rodríguez ? Measurements Intervals ?[place] ? Rate: ? 101 ?P: ?7 MA: ? 169 ?QRS: ?28 QRSD: ? 88 ? T: ?56 QT: ? 321 ? QTc: ?416 ? Interpretive Statements SINUS TACHYCARDIA NONSPECIFIC T-WAVE ABNORMALITY ABNORMAL RHYTHM ECG Compared to ECG 11/08/2022 10:31:14 Sinus rhythm no longer present T-wave abnormality still present Procedure Note Alexei Rodríguez MD - 11/10/2022 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 RAD * XR CHEST PORTABLE (11/09/2022 9:59 [...] * LIPASE (11/09/2022 9:39 PM CDT) Pathologist [facility] LIPASE 25 13 - 75 UNITS/L 11/09/2022 10:22 PM CDT [facility] 11/09/2022 9:39 PM CDT Nicole MARIE LABORATORY Final Result [facility] [address] [place] [address], [place] [phone] * (ABNORMAL) COMPREHENSIVE METABOLIC PANEL (11/09/2022 9:39 PM CDT) GLUCOSE 209(H) 70 - 99 MG/DL 11/09/2022 10:22 PM CDT [facility] BUN 18 7 - 18 MG/DL 11/09/2022 10:22 PM CDT [facility] CREATININE S/P/B 1.14(H) 0.55 - 1.02 MG/DL 11/09/2022 10:22 PM CDT [facility] SODIUM S/P/B 134(L) 136 - 145 MMOL/L 11/09/2022 10:22 PM CDT [facility] POTASSIUM S/P/B 3.8 3.5 - 5.1 MMOL/L 11/09/2022 10:22 PM CDT [facility] CHLORIDE S/P/B 99(L) 100 - 108 MMOL/L 11/09/2022 10:22 PM CDT [facility] CO2 28.5 21 - 32 MMOL/L 11/09/2022 10:22 PM CDT [facility] CALCIUM S/P/B 9.7 8.5 - 10.1 MG/DL 11/09/2022 10:22 PM T [facility] BILIRUBIN TOTAL S/P/B 0.5 0.2 - 1.2 MG/DL 11/09/2022 10:22 PM T [facility] Comment: THIS ASSAY IS NOT RECOMMENDED FOR PATIENTS UNDERGOING TREATMENT WITH ELTROMBOPAG DUE TO THE POTENTIAL FOR FALSELY ELEVATED RESULTS. TOTAL PROTEIN S/P/B 9.4(H) 6.4 - 8.2 G/DL 11/09/2022 10:22 PM T [facility] ALBUMIN S/P/B 3.8 3.4 - 5.0 G/DL 11/09/2022 10:22 PM T [facility] AST 18 15 - 37 U/L 11/09/2022 10:22 PM T [facility] ALT 29 14 - 55 U/L 11/09/2022 10:22 PM T [facility] ALKALINE PHOSPHATASE S/P/B 149(H) 50 - 136 U/L 11/09/2022 10:22 PM T [facility] ANION GAP 6.5 5 - 15 MMOL/L 11/09/2022 10:22 PM CDT [facility] BUN CREATININE RATIO 15.8 6 - 26 11/09/2022 10:22 PM CDT [facility] A/G RATIO 0.7(L) 1.0 - 2.0 RATIO 11/09/2022 10:22 PM CDT [facility] GFR ESTIMATE 58(L) >90 ML/MIN/1.7 3 M2 11/09/2022 10:22 PM CDT [facility] Comment: NOTE: eGFR is not calculated for patients <18 years of age. This is an estimated GFR calculation using the new CKD EPI creatinine equation without race and so does not require a correction factor for race. This estimated GFR should not be used for calculating drug doses. 11/09/2022 9:39 PM CDT us Nicole MARIE LABORATORY Final Result [facility] [address] [place] [address], [place] [phone] * (ABNORMAL) CBC W/DIFF AUTOMATED (11/09/2022 9:39 PM CDT) WBC 10.7 4.5 - 11.0 x10'3/uL 11/09/2022 9:51 PM CDT [facility] RBC 4.46 4.20 - 5.40 x10'6/uL 11/09/2022 9:51 PM CDT [facility] HGB 13.5 12.0 - 16.0 G/DL 11/09/2022 9:51 PM CDT [facility] HCT 39.9 38.0 - 48.0 % 11/09/2022 9:51 PM CDT [facility] MCV 89.5 81.0 - 99.0 FL 11/09/2022 9:51 PM CDT [facility] MCH 30.3 27.0 - 31.0 PG 11/09/2022 9:51 PM CDT [facility] MCHC 33.8 32.0 - 36.0 G/DL 11/09/2022 9:51 PM CDT [facility] RDW 13.1 11.5 - 14.5 % 11/09/2022 9:51 PM CDT [facility] PLT 325 130 - 400 x10'3/uL 11/09/2022 9:51 PM CDT [facility] MPV 11.3 9.3 - 12.2 FL 11/09/2022 9:51 PM CDT [facility] DIFFERENTIAL TYPE AUTOMATED DIFFERENTIAL 11/09/2022 9:51 PM CDT [facility] NEUTROPHILS % 72.1 % 11/09/2022 9:51 PM CDT [facility] LYMPHOCYTES % 21.0 % 11/09/2022 9:51 PM CDT [facility] MONOCYTES % 5.4 % 11/09/2022 9:51 PM CDT [facility] EOSINOPHILS 0.6 % 11/09/2022 9:51 PM CDT [facility] BASOPHILS 0.5 % 11/09/2022 9:51 PM CDT [facility] IMMATURE GRANS % 0.4 % 11/10/19 9:51 PM CDT [facility] ABS. NEUTROPHILS TOTAL 7.73(H) 1.80 - 7.70 x10'3/uL 11/09/2022 9:51 PM CDT [facility] ABS. LYMPHOCYTES 2.25 1.00 - 4.80 x10'3/uL 11/09/2022 9:51 PM CDT [facility] ABS. MONOCYTES 0.58 0.24 - 0.86 x10'3/uL 11/09/2022 9:51 PM CDT [facility] ABS. EOSINOPHILS 0.06 0.04 - 0.36 x10'3/uL 11/09/2022 9:51 PM CDT [facility] ABS. BASOPHILS 0.05 0.01 - 0.08 x10'3/uL 11/09/2022 9:51 PM CDT [facility] ABS. IMMATURE GRANULOCYTES 0.04 0.00 - 0.49 x10'3/uL 11/09/2022 9:51 PM CDT [facility] 11/09/2022 9:39 PM CDT Nicole MARIE LABORATORY Final Result [facility] [address] [place] [address], * (ABNORMAL) CBC W/DIFF AUTOMATED (10/16/2022 4:00 AM CDT) WBC 10.9 4.5 - 11.0 x10'3/uL 11/17/2022 5:57 PM CDT [facility] RBC 3.99(L) 4.20 - 5.40 x10'6/uL 11/17/2022 5:57 PM CDT [facility] HGB 11.9(L) 12.0 - 16.0 G/DL 11/17/2022 5:57 PM CDT [facility] HCT 36.4(L) 38.0 - 48.0 % 11/17/2022 5:57 PM CDT [facility] MCV 91.2 81.0 - 99.0 FL 11/17/2022 5:57 PM CDT [facility] MCH 29.8 27.0 - 31.0 PG 11/17/2022 5:57 PM CDT [facility] MCHC 32.7 32.0 - 36.0 G/DL 11/17/2022 5:57 PM CDT [facility] RDW 13.1 11.5 - 14.5 % 11/17/2022 5:57 PM CDT [facility] PLT 300 130 - 400 x10'3/uL 11/17/2022 5:57 PM CDT [facility] MPV 11.6 9.3 - 12.2 FL 11/17/2022 5:57 PM CDT [facility] NEUTROPHILS % 60.0 % 11/17/2022 5:58 PM CDT [facility] LYMPHOCYTES % 33.0 % 11/17/2022 5:58 PM CDT [facility] MONOCYTES % 5.0 % 11/17/2022 5:58 PM CDT [facility] EOSINOPHILS 2.0 % 11/17/2022 5:58 PM CDT [facility] ABS. LYMPHOCYTES 3.60 1.00 - 4.80 x10'3/uL 11/17/2022 5:58 PM CDT [facility] ABS. NEUTROPHILS TOTAL 6.53 1.80 - 7.70 x10'3/uL 11/17/2022 5:58 PM CDT [facility] ABS. MONOCYTES 0.55 0.24 - 0.86 x10'3/uL 11/17/2022 5:58 PM CDT [facility] ABS. EOSINOPHILS 0.22 0.04 - 0.36 x10'3/uL 11/17/2022 5:58 PM CDT [facility] DIFFERENTIAL TYPE AUTOMATED DIFFERENTIAL 11/17/2022 5:58 PM CDT [facility] PLT EST. ADEQUATE 11/17/2022 5:58 PM CDT [facility] 10/16/2022 4:00 AM CDT us Soraya Sanz MD LABORATORY Final Result [facility] [address] [place] [address], * (ABNORMAL) BASIC METABOLIC PANEL (10/16/2022 4:00 AM CDT) GLUCOSE 88 70 - 99 MG/DL 11/17/2022 9:51 AM CDT [facility] BUN 12 7 - 18 MG/DL 11/17/2022 9:51 AM CDT [facility] CREATININE S/P/B 1.02 0.55 - 1.02 MG/DL 11/17/2022 9:51 AM CDT [facility] SODIUM S/P/B 141 136 - 145 MMOL/L 11/17/2022 9:51 AM CDT [facility] POTASSIUM S/P/B 4.1 3.5 - 5.1 MMOL/L 11/17/2022 9:51 AM CDT [facility] CHLORIDE S/P/B 106 100 - 108 MMOL/L 11/17/2022 9:51 AM CDT [facility] CO2 30.5 21 - 32 MMOL/L 11/17/2022 9:51 AM CDT [facility] CALCIUM S/P/B 10.0 8.5 - 10.1 MG/DL 11/17/2022 9:51 AM CDT [facility] ANION GAP 4.5(L) 5 - 15 MMOL/L 11/17/2022 9:51 AM CDT [facility] BUN CREATININE RATIO 11.8 6 - 26 11/17/2022 9:51 AM CDT [facility] GFR ESTIMATE 67(L) >90 ML/MIN/1.7 3 M2 11/17/2022 9:51 AM CDT [facility] Comment: [...] us Soraya Sanz MD LABORATORY Final Result [facility] [address] [place] [address], [place] [phone] documented in this encounter Visit Diagnoses Diagnosis Intractable vomiting- Primary Persistent vomiting Abdominal pain Abdominal pain, unspecified site Vomiting Vomiting alone Type 2 diabetes mellitus with diabetic neuropathic arthropathy, with long-term current use of insulin ([facility]) documented in this encounter Admitting [...] 2307 (New Bag - Provider: Sarah Beth Bhardwaj, DEANDRE) 0112 (Infusion Stop Time - Provider: [...] 0640 0640 (Given - Provider: Gigi Smalls [facility]) iopamidol (ISOVUE-370) 76 % injection 100 mL [...] Total Score: 0 03/08/19 22 9:30 AM [employer] documented as of this encounter Care Teams [employer] Relationship Specialty Start Date End Date Yasmin Segura II, MD [address] [place] [address] PCP - General FAMILY PRACTICE 03/09/21 [place] [address] [place] [address] PODIATRY/SURGERY 05/05/22 documented as of this encounter
--- OUTSIDE RECORDS SUMMARY | 2024-03-03 01:20 | XMS_ITS | Encounter Summary ---
Author Organization [facility] Address [address] [place] [address]. [place] [address] [place] [address] Care Team Providers Care Senior Technical Business Analyst Name Role Phone Colton SILVEIRA MD, Abiodun Rushing Primary Care Provider Victoriano Langston MD Unavailable [phone] Reason for Referral * Imaging (Emergency) - Closed Specialty Diagnoses / Procedures Referred By Lyla chaney Referred To Contact RADIOLOGY Procedures CT ABD+PEL W IV CON ONLY Desiree Mackenzie MD [address] [address] Phone: tel: fax: Referral ID Status Reason Start Date Expiration Date Visits Re quested Visits Authorized [id number] Closed 11/08/2022 11/09/2023 1 1 Reason for Visit * Reason Comments Abdominal Pain Vomiting Encounter Details Date Type Department Care Team (Late st Contact Info) Description 11/08/2022 11:54 AM CDT - 11/08/2022 2:10 PM CDT Emergency [facility] Emergency Room [place], [place] [phone] Desiree Mackenzie MD [address] [address] Abdominal Pain; Vomiting Discharge Disposition: [...] Recorded Patient Health Questionnaire-2 Score 0 05/05/2022 [facility] [place] of Occupat ional Health - Occupational Stress [...] Author Status No 10/11/2022 11:33 PM CDT Amanad Qureshi RN Active * Are you blind [...] Care Everywhere. * Peptic Ulcers Discharge Instructions (Tunisian) documented in this encounter Medications at Time [...] presence unspecified, unspecified laterality, unspecified retinopathy severity ([facility]/HCC [facility]/HCC) INJECT 60 UNITS SUBCUTANEOUSLY ONCE DAILY IN [...] ECG [address] [facility] [facility] Test Date: 2022-11-08 Pat Name: LENA YOUNGBLOOD Department: 41 Room: Gender: Female Manager Software Development: [id number] : 1970 Requested By: DESIREE MACKENZIE Order Number: [id number] Reading MD: Marvin Mckeon Measurements Intervals [place] Rate: 92 P: 47 FL: 178 QRS: 23 QRSD: 78 T: 52 [...] IV CON ONLY Final Result by User, [email or web address] (11/08 4662) EXAMINATION: CT ABD+PEL W CON CLINICAL HISTORY: [...] st Contact Info) Description 03/14/2024 11:45 AM STRATEGIC MARKETING MANAGER Office Visit [facility] [phone] Marvin Mckeon MD [address] [facility] [address] [place] [address] 03/20/2024 11:30 AM STRATEGIC MARKETING MANAGER Office Visit [facility] Family Medicine - [place] [address] [place] [phone] Abiodun Segura II, MD 100 [place] [address] documented as of this encounter Goals Goal [...] - 75 UNITS/L 11/08/2022 11:34 AM CDT [facility] 11/08/2022 10:5 0 AM CDT us Desiree Mackenzie MD LABORATORY Final Re sult [facility] [address] [place] [address], [place] [phone] * (ABNORMAL) COMPREHENSIVE METABOLIC PANEL (11/08/2022 10:50 AM CDT) GLUCOSE 235(H) 70 - 99 MG/DL 11/08/2022 11:34 AM CDT [facility] BUN 16 7 - 18 MG/DL 11/08/2022 11:34 AM CDT [facility] CREATININE S/P/B 1.10(H) 0.55 - 1.02 MG/DL 11/08/2022 11:34 AM CDT [facility] SODIUM S/P/B 139 136 - 145 MMOL/L 11/08/2022 11:34 AM T [facility] POTASSIUM S/P/B 5.2(H) 3.5 - 5.1 MMOL/L 11/08/2022 11:34 AM CDT [facility] Comment:SLIGHT HEMOLYSIS, RE SULT MAY BE AFFECTED. CHLORIDE S/P/B 103 100 - 108 MMOL/L 11/08/2022 11:34 AM T [facility] CO2 30.4 21 - 32 MMOL/L 11/08/2022 11:34 AM T [facility] CALCIUM S/P/B 9.7 8.5 - 10.1 MG/DL 11/08/2022 11:34 AM T [facility] BILIRUBIN TOTAL S/P/B 0.7 0.2 - 1.2 MG/DL 11/08/2022 11:34 AM T [facility] Comment: THIS ASSAY IS NOT RECOMMENDED FOR PATIENTS UNDERGOING TREATMENT WITH ELTROMBOPAG DUE TO THE POTENTIAL FOR FALSELY ELEVATED RESULTS. TOTAL PROTEIN S/P/B 9.3(H) 6.4 - 8.2 G/DL 11/08/2022 11:34 AM T [facility] ALBUMIN S/P/B 3.6 3.4 - 5.0 G/DL 11/08/2022 11:34 AM CDT [facility] AST 29 15 - 37 U/L 11/08/2022 11:34 AM T [facility] Comment:SLIGHT HEMOLYSIS, RE SULT MAY BE AFFECTED. ALT 38 14 - 55 U/L 11/08/2022 11:34 AM T [facility] ALKALINE PHOSPHATASE S/P/B 159(H) 50 - 136 U/L 11/08/2022 11:34 AM CDT [facility] ANION GAP 5.6 5 - 15 MMOL/L 11/08/2022 11:34 AM CDT [facility] BUN CREATININE RATIO 14.5 6 - 26 11/08/2022 11:34 AM CDT [facility] A/G RATIO 0.6(L) 1.0 - 2.0 RATIO 11/08/2022 11:34 AM CDT [facility] GFR ESTIMATE 61(L) >90 ML/MIN/1.7 3 M2 11/08/2022 11:34 AM CDT [facility] Comment: NOTE: eGFR is not calculated for patients <18 years of age. This is an estimated GFR calculation using the new CKD EPI creatinine equation without race and so does not require a correction factor for race. This estimated GFR should not be used for calculating drug doses. 11/08/2022 10:5 0 AM CDT us Desiree Mackenzie MD LABORATORY Final Re sult [facility] [address] [place] [address], [place] [phone] * (ABNORMAL) CBC W/DIFF AUTOMATED (11/08/2022 10:50 AM CDT) WBC 10.5 4.5 - 11.0 x10'3/uL 11/08/2022 11:06 AM CDT [facility] RBC 4.31 4.20 - 5.40 x10'6/uL 11/08/2022 11:06 AM CDT [facility] HGB 13.1 12.0 - 16.0 G/DL 11/08/2022 11:06 AM CDT [facility] HCT 38.8 38.0 - 48.0 % 11/08/2022 11:06 AM CDT [facility] MCV 90.0 81.0 - 99.0 FL 11/08/2022 11:06 AM CDT [facility] MCH 30.4 27.0 - 31.0 PG 11/08/2022 11:06 AM CDT [facility] MCHC 33.8 32.0 - 36.0 G/DL 11/08/2022 11:06 AM CDT [facility] RDW 13.7 11.5 - 14.5 % 11/08/2022 11:06 AM CDT [facility] PLT 295 130 - 400 x10'3/uL 11/08/2022 11:06 AM T [facility] MPV 11.5 9.3 - 12.2 FL 11/08/2022 11:06 AM T [facility] DIFFERENTIAL TYPE AUTOMATED DIFFERENTIAL 11/08/2022 11:06 AM CDT [facility] NEUTROPHILS % 76.0 % 11/08/2022 11:06 AM CDT [facility] LYMPHOCYTES % 18.7 % 11/08/2022 11:06 AM T [facility] MONOCYTES % 3.9 % 11/08/2022 11:06 AM CDT [facility] EOSINOPHILS 0.6 % 11/08/2022 11:06 AM CDT [facility] BASOPHILS 0.4 % 11/08/2022 11:06 AM CDT [facility] IMMATURE GRANS % 0.4 % 11/09/19 11:06 AM CDT [facility] ABS. NEUTROPHILS TOTAL 7.99(H) 1.80 - 7.70 x10'3/uL 11/08/2022 11:06 AM CDT [facility] ABS. LYMPHOCYTES 1.96 1.00 - 4.80 x10'3/uL 11/08/2022 11:06 AM CDT [facility] ABS. MONOCYTES 0.41 0.24 - 0.86 x10'3/uL 11/08/2022 11:06 AM CDT [facility] ABS. EOSINOPHILS 0.06 0.04 - 0.36 x10'3/uL 11/08/2022 11:06 AM CDT [facility] ABS. BASOPHILS 0.04 0.01 - 0.08 x10'3/uL 11/08/2022 11:06 AM CDT [facility] ABS. IMMATURE GRANULOCYTES 0.04 0.00 - 0.49 x10'3/uL 11/08/2022 11:06 AM CDT [facility] 11/08/2022 10:5 0 AM CDT us Desiree Mackenzie MD LABORATORY Final Re sult [facility] [address] [place] [address], * ECG 12 lead (11/08/2022 10:31 AM CDT) 11/08/2022 10:3 1 AM CDT Narrative [facility] ([facility]) RAD - 11/08/2022 12:11 PM CDT ?[place] [place] ? [address] [facility] ? Test Date: ?2022-11-08 Pat Name: ? LENA YOUNGBLOOD ?Department: ?? 41 ? Room: ? Gender: ? Female ? Manager Software Development: ?? [id number] : ?1970 ? Requested By: DESIREE MACKENZIE Order Number: [id number] ? Reading MD: ?? Marvin Mckeon ? Measurements Intervals ?[place] ? Rate: ? 92 ? P: ?47 FL: ? 178 ?QRS: ?23 QRSD: ? 78 ? T: ?52 QT: ? 347 ? QTc: ?430 ? Interpretive Statements SINUS RHYTHM NONSPECIFIC T-WAVE ABNORMALITY Compared to ECG 10/11/2022 15:39:46 Ventricular premature complex(es) no longer present T-wave abnormality still present Procedure Note Marvin Mckeon MD - 11/08/[address] [facility] [place] Test Date: 2022-11-08 Pat Name: LENA YOUNGBLOOD Department: 41 Room: Gender: Female Manager Software Development: [id number] : 1970 Requested By: DESIREE MACKENZIE Order Number: [id number] Reading MD: Marvin Mckeon Measurements Intervals [place] Rate: 92 P: 47 FL: 178 QRS: 23 QRSD: 78 T: 52 QT: 347 QTc: 430 Interpretive Statements SINUS RHYTHM NONSPECIFIC T-WAVE ABNORMALITY Compared to ECG 10/11/2022 15:39:46 Ventricular premature complex(es) no longer present T-wave abnormality still present us Desiree Mackenzie MD ECG ORDERABLES Final Re sult [facility] documented in [...] Depression Total Score: 0 03/08/19 9:30 AM STRATEGIC MARKETING MANAGER documented as of this encounter Care Teams Senior Technical Business Analyst Relationship Specialty Start Date End Date Abiodun Segura II, MD [address] [place] [address] PCP - General FAMILY PRACTICE 03/09/21 [place] [address] [place] [address] PODIATRY/SURGERY 05/05/22 documented as of this encounter
--- OUTSIDE RECORDS SUMMARY | 2024-03-03 01:20 | XMS_ITS | Encounter Summary ---
Author Organization [facility] Address [address] [place] [address]. [place] [address] [place] [address] Care Team Providers Care Pigment And Lacquer Mixer Name Role Phone Colton SILVEIRA MD, Abiodun Rushing Primary Care Provider Victoriano Langston MD Unavailable [phone] Reason for Visit * Reason Onset Date Comments Refill Request 12/05/2022 Encounter Details Date Type Department Care Team (Late st Contact Info) Description 12/05/2022 Telephone [facility] Family Medicine - [place] [address] [place] [address] Abiodun Segura II, MD 100 [place] [address] Refill Request Social History Tobacco [...] Recorded Patient Health Questionnaire-2 Score 0 05/05/2022 [facility] Occupat ional [facility] - Occupational Stress Questionnaire Answer Date [...] slept in a fpc (including now)? No 11/10/2022 Comments No Sex [...] Contact Info) Description 03/14/2024 11:45 AM WOOD CASKET MAKER Office Visit [facility] [phone] Marvin Mckeon MD [facility] Suite [facility] [place] [address] 03/20/2024 11:30 AM WOOD CASKET MAKER Office Visit [facility] Family Medicine - [place] [address] [place] [phone] Abiodun Segura II, MD 100 [place] [address] documented as of this encounter Goals Goal Patient Goal Type Associated Problems Recent Progress Patient-Stated? Author Family - family caregiver with be involved in care transitions and discharge planning Lifestyle No Natty Cheek, RN documented as of this encounter Visit Diagnoses Diagnosis Type 2 diabetes mellitus with diabetic neuropathic arthropathy, with long-term current use of insulin ([facility])- Primary documented in this encounter Additional Health Concerns Assessment Noted Time PHQ-9 Depression Total Score: 0 03/08/19 9:30 AM WOOD CASKET MAKER documented as of this encounter Care Teams Pigment And Lacquer Mixer Relationship Specialty Start Date End Date Abiodun Segura II, MD [address] [place] [address] PCP - General FAMILY PRACTICE 03/09/21 [place] [address] [place] [address] PODIATRY/SURGERY 05/05/22 documented as of this encounter
--- OUTSIDE RECORDS SUMMARY | 2024-03-03 01:20 | XMS_ITS | Encounter Summary ---
Author Organization [facility] Address [address] [place] [address]. [place] [address] [place] [address] Care Team Providers Care In Home Caregiver Name Role Phone Colton SILVEIRA MD, Abiodun Rushing Primary Care Provider Victoriano Langston MD Unavailable [phone] Reason for Visit * Reason Onset Date Comments Question 12/21/2022 Encounter Details Date Type Department Care Team (Late st Contact Info) Description 12/21/2022 Telephone [facility] Multispecialty Care - [facility] [address] [facility], [address] [place] [phone] Gurinder Saldivar MD 3 [facility] [address] [place] [address] Question Social History Tobacco Use [...] No 11/10/2022 Housing Stability Vital Sign Answer Raymno e Recorded In the last 12 months, [...] Info) Description 03/14/2024 11:45 AM SOFTWARE ENGINEER Office Visit [facility] [phone] Marvin Mckeon MD [address] [facility] [address] [place], [place] [phone] 03/20/2024 11:30 AM SOFTWARE ENGINEER Office Visit [facility] Family Medicine - [place] 100 [place] [phone] Abiodun Segura II, MD 100 [place] [address] documented as of this encounter Goals Goal Patient Goal Type Associated Problems Recent Progress Patient-Stated? Author Family - family caregiver with be involved in care transitions and discharge planning Lifestyle No Natty Cheek, RN documented as of this encounter Visit Diagnoses Not on filedocumented in this encounter Additional Health Concerns Assessment Noted Time PHQ-9 Depression Total Score: 0 03/08/19 9:30 AM SOFTWARE ENGINEER documented as of this encounter Care Teams In Home Caregiver Relationship Specialty Start Date End Date Abiodun Segura II, MD [address] [place], [place] [phone] PCP - General FAMILY PRACTICE 03/09/21 [place] [address] [place] [address] PODIATRY/SURGERY 05/05/22 documented as of this encounter
--- OUTSIDE RECORDS SUMMARY | 2024-03-03 01:20 | XMS_ITS | Encounter Summary ---
Author Organization [facility] Address [address] [place] [address]. [place] [address] [place] [address] Care Team Providers Care Engineering Group Leader Name Role Phone Colton SILVEIRA MD, Abiodun Rushing Primary Care Provider Victoriano Langston MD Unavailable [phone] Reason for Visit * Reason Onset Date Comments Results 12/12/2022 Encounter Details Date Type Department Care Team (Late st Contact Info) Description 12/12/2022 Telephone [facility] Multispecialty Care - [facility] 3 [facility], [address] [place] [phone] Gurinder Saldivar MD [address] [facility] [address] [place] [address] Results Social History Tobacco Use [...] Recorded Patient Health Questionnaire-2 Score 0 12/13/2022 [facility] of Occupat ional Health [...] slept in a alf (including now)? No 11/10/2022 Comments No Sex [...] st Contact Info) Description 03/14/2024 11:45 AM SCREW MACHINE ADJUSTER AUTOMATIC Office Visit [facility] [phone] Marvin Mckeon MD [address] [facility] [address] [place] [phone] 03/20/2024 11:30 AM SCREW MACHINE ADJUSTER AUTOMATIC Office Visit [facility] Family Medicine - [place] 100 [place] [phone] Abiodun Segura II, MD [address] [place] [phone] documented as of this encounter Goals Goal Patient Goal Type Associated Problems Recent Progress Patient-Stated? Author Family - family caregiver with be involved in care transitions and discharge planning Lifestyle No Natty Cheek, RN documented as of this encounter Visit Diagnoses Not on filedocumented in this encounter Additional Health Concerns Assessment Noted Time PHQ-9 Depression Total Score: 0 03/08/19 22 9:30 AM SCREW MACHINE ADJUSTER AUTOMATIC documented as of this encounter Care Teams Engineering Group Leader Relationship Specialty Start Date End Date Abiodun Segura II, MD [address] [place] [address] PCP - General FAMILY PRACTICE 03/09/21 [place] [address] [place] [address] PODIATRY/SURGERY 05/05/22 documented as of this encounter
--- OUTSIDE RECORDS SUMMARY | 2024-03-03 01:20 | XMS_ITS | Encounter Summary ---
Author Organization [facility] Address [address] [place] [address]. [place] [address] [place] [address] Care Team Providers Care Final Inspector Balance Wheel Name Role Phone Colton SILVEIRA MD, Yasmin Rushing Primary Care Provider Victoriano Langston MD Unavailable [phone] Reason for Visit * Reason Comments Hypertension Hosp f/u abdominal p ain Encounter Details Date Type Department Care Team (Late st Contact Info) Description 11/02/2022 10:15 AM CDT Office Visit [facility] [address] [facility] [place], [place] [phone] Abhishek Latham MD [facility] [address] [place] [address] Hypertension (Hosp f/u abdominal pain) [...] Recorded Patient Health Questionnaire-2 Score 0 05/05/2022 [facility] Occupat ional Health - Occupational [...] Charcot foot due to diabetes mellitus (HHS/HCC) ([facility]) LEFT FOOT Constipation COVID-19 Diabetes mellitus (HHS/HCC) (CMS/HCC) Diabetic neuropathy (HHS/HCC) ([facility]) High cholesterol Hypertension Renal disorder [...] DM type 2, goal HbA1c < 7% ([facility]/HCC) ([facility]) Referring Provider: No ref. provider found PCP: YASMIN VALENZUELA MD documented in this encounter Plan of Treatment Upcoming Encounters Date Type Department Care Team (Late st Contact Info) Description 03/14/2024 11:45 AM MEDICARE SALES REPRESENTATIVE Office Visit [facility] [phone] Marvin Mckeon MD Three [facility] [address] [place] [phone] 03/20/2024 11:30 AM MEDICARE SALES REPRESENTATIVE Office Visit [facility] Family Medicine - [place] 100 [place] [phone] Ysamin Valenzuela II, MD 100 [place] [address] documented as of this encounter Goals Goal [...] DM type 2, goal HbA1c < 7% ([facility]/HCC HHS/HCC) documented in this encounter Additional Health Concerns Assessment Noted Time PHQ-9 Depression Total Score: 0 03/08/19 22 9:30 AM MEDICARE SALES REPRESENTATIVE documented as of this encounter Care Teams Final Inspector Balance Wheel Relationship Specialty Start Date End Date Yasmin Valenzuela II, MD 100 [place] [address] PCP - General FAMILY PRACTICE 03/09/21 [place] [address] [place] [address] PODIATRY/SURGERY 05/05/22 documented as of this encounter
--- OUTSIDE RECORDS SUMMARY | 2024-03-03 01:20 | XMS_ITS | Encounter Summary ---
Author Organization [facility] Address [address] [place] [address]. [place] [address] [place] [address] Care Team Providers Care Profiling Machine Set Up Operator Tool Name Role Phone Colton SILVEIRA MD, Abiodun Rushing Primary Care Provider Victoriano Langston MD Unavailable [phone] Encounter Details Date Type Department Care Team [...] Recorded Patient Health Questionnaire-2 Score 0 12/13/2022 [facility] of Occupat ional Health - [...] Contact Info) Description 03/14/2024 11:45 AM CLINICAL NURSE LEADER Office Visit [facility]-[address] [phone] Marvin Mckeon MD [facility] [address] [place] [address] 03/20/2024 11:30 AM CLINICAL NURSE LEADER Office Visit [facility] Family Medicine - [place] 100 [place] [phone] Abiodun Segura II, MD [address] [place] [address] documented as of this encounter Goals Goal Patient Goal Type Associated Problems Recent Progress Patient-Stated? Author Family - family caregiver with be involved in care transitions and discharge planning Lifestyle No Natty Cheek, RN documented as of this encounter Visit Diagnoses Not on filedocumented in this encounter Additional Health Concerns Assessment Noted Time PHQ-9 Depression Total Score: 0 03/08/19 22 9:30 AM CLINICAL NURSE LEADER documented as of this encounter Care Teams Profiling Machine Set Up Operator Tool Relationship Specialty Start Date End Date Abiodun Segura II, MD 100 [place] [address] PCP - General FAMILY PRACTICE 03/09/21 [place] [address] [place] [address] PODIATRY/SURGERY 05/05/22 documented as of this encounter
--- OUTSIDE RECORDS SUMMARY | 2024-03-03 01:20 | XMS_ITS | Encounter Summary ---
Author Organization [facility] Address [address] [place] [address]. [place] [address] [place] [address] Care Team Providers Care Consumer Safety Inspector Name Role Phone Colton SILVEIRA MD, Abiodun Rushing Primary Care Provider Victoriano Langston MD Unavailable [phone] Reason for Visit * Reason Comments New Patient Hospital f/u (abdomi nal pain/vomitting * Consultation (Routine) - Closed Specialty Diagnoses / Procedures Referred By Contac t Referred To Contact GASTROENTEROLOGY Diagnoses Vomiting History of stomach ulcers Abiodun Segura II, MD 100 [place] [address] Phone: tel: fax: Karlo Saldivar MD 3 [facility] Mic [address] [place] [address] Phone: tel: fax: Referral ID Status Reason Start Date Expiration Date Visits Re quested Visits Authorized [id number] Closed 11/06/2022 12/07/2023 99 99 Encounter Details Date Type Department Care Team (Latest Contact Info) Description 12/13/2022 1:00 PM CDT Office Visit [facility] Multispecialty Care - [address] [place] [phone] Karlo Saldivar MD [address] [address] New Patient (Hospital f/u (abdominal pain/vomitting) Social [...] Recorded Patient Health Questionnaire-2 Score 0 12/13/2022 [facility] of Occupat ional Health - Occupational Stress [...] Charcot foot due to diabetes mellitus (HHS/HCC) ([facility]) LEFT FOOT Constipation COVID-19 Diabetes [...] Info) Description 03/14/2024 11:45 AM INDIVIDUAL PENSION CONSULTANT Office Visit [facility] [phone] Marvin Mckeon MD [address] [facility] [address] [place], [place] [phone] 03/20/2024 11:30 AM INDIVIDUAL PENSION CONSULTANT Office Visit [facility] Family Medicine - [place] 100 [place] [phone] Abiodun Segura II, MD 100 [place], [place] [phone] Scheduled Referrals Name Type Priority Associated Diagnoses [...] Depression Total Score: 0 03/08/19 9:30 AM INDIVIDUAL PENSION CONSULTANT documented as of this encounter Care Teams Consumer Safety Inspector Relationship Specialty Start Date End Date Abiodun Segura II, MD [address] [place] [phone] PCP - General FAMILY PRACTICE 03/09/21 [place] [address] [place] [address] PODIATRY/SURGERY 05/05/22 documented as of this encounter
--- OUTSIDE RECORDS SUMMARY | 2024-03-03 01:20 | XMS_ITS | Encounter Summary ---
Author Organization [facility] Address [address] [place] [address]. [place] [address] [place] [address] Care Team Providers Care Senior Bioinformatics Scientist Name Role Phone Colton SILVEIRA MD, Abiodun Rushing Primary Care Provider Victoriano Langston MD Unavailable [phone] Reason for Visit * Reason Onset Date Comments Appointment Request 11/02/2022 Question 11/02/2022 Encounter Details Date Type Department Care Team (Late st Contact Info) Description 11/02/2022 Telephone [facility] Mult[facility] Care - [address], [address] [place] [phone] Gurinder Saldivar MD 3 [facility] Mic [address] [place] [address] Appointment Request; Question Social History Tobacco [...] Recorded Patient Health Questionnaire-2 Score 0 05/05/2022 [facility] Occupat ional Health - [...] slept in a assisted (including now)? No 09/03/2022 Comments No Sex [...] says her apt is too far away. [phone] * Kiera Augustin LPN - 11/06/2022 4:45 [...] Contact Info) Description 03/14/2024 11:45 AM SENIOR SALES REPRESENTATIVE Office Visit [facility] [address] Marvin Mckeon MD Three [facility] [address] [place], [place] [phone] 03/20/2024 11:30 AM SENIOR SALES REPRESENTATIVE [facility] Family [facility] - [place] 100 [place] [phone] Abiodun Segura II, MD 100 [place], [place] [phone] documented as of this encounter Goals Goal Patient Goal Type Associated Problems Recent Progress Patient-Stated? Author Family - family caregiver with be involved in care transitions and discharge planning Lifestyle No Natty Cheek RN documented as of this encounter Visit Diagnoses Not on filedocumented in this encounter Additional Health Concerns Assessment Noted Time PHQ-9 Depression Total Score: 0 03/08/19 22 9:30 AM SENIOR SALES REPRESENTATIVE documented as of this encounter Care Teams Senior Bioinformatics Scientist Relationship Specialty Start Date End Date Abiodun Segura II, MD 100 [place] [address] PCP - General FAMILY PRACTICE 03/09/21 [place] [address] [place] [address] PODIATRY/SURGERY 05/05/22 documented as of this encounter
--- OUTSIDE RECORDS SUMMARY | 2024-03-03 01:20 | XMS_ITS | Encounter Summary ---
Author Organization [facility] Address [address] [place] [address]. [place] [address] [place] [address] Care Team Providers Care Truck Leasing Manager Name Role Phone Colton SILVEIRA MD, Abiodun Rushing Primary Care Provider Victoriano Langston MD Unavailable [phone] Encounter Details Date Type Department Care Team (Late st Contact Info) Description 11/09/2022 Hospital Follow-up Call [facility] [place] [address] Nicole Beatty RN Social History [...] Patient Health Questionnaire-2 Score 0 05/05/2022 [facility] of Occupat ional Health - Occupational [...] in a nursing home (including now)? No 11/10/2022 Comments No [...] st Contact Info) Description 03/14/2024 11:45 AM CLOTHING PRESSER Office Visit [facility] [address] Marvin Mckeon MD Three [facility] [address] [place], [place] [phone] 03/20/2024 11:30 AM CLOTHING PRESSER Office Visit [facility] Family Medicine - [place] 100 [place] [phone] Abiodun Segura II, MD 100 [place], [place] [phone] documented as of this encounter Goals Goal Patient Goal Type Associated Problems Recent Progress Patient-Stated? Author Family - family caregiver with be involved in care transitions and discharge planning Lifestyle No Natty Cheek RN documented as of this encounter Visit Diagnoses Not on filedocumented in this encounter Additional Health Concerns Assessment Noted Time PHQ-9 Depression Total Score: 0 03/08/19 22 9:30 AM CLOTHING PRESSER documented as of this encounter Care Teams Truck Leasing Manager Relationship Specialty Start Date End Date Abiodun Segura II, MD 100 [place], [place] [phone] PCP - General FAMILY PRACTICE 03/09/21 [place] [address] [place] [address] PODIATRY/SURGERY 05/05/22 documented as of this encounter
--- OUTSIDE RECORDS SUMMARY | 2024-03-03 01:20 | XMS_ITS | Encounter Summary ---
Author Organization [facility] Address [address] [place] [address]. [place] [address] [place] [address] Care Team Providers Care Data Warehousing Specialist Name Role Phone Colton SILVEIRA MD, Abiodun Rushing Primary Care Provider Victoriano Langston MD Unavailable [phone] Reason for Visit * Reason Onset Date Comments Results 12/18/2022 Encounter Details Date Type Department Care Team (Late st Contact Info) Description 12/18/2022 Telephone [facility] Medical [facility] Multispecialty Care - [facility] 3 [facility], [address] [place] [phone] Gurinder Saldivar MD 3 [facility] [address] [place] [address] Results Social History Tobacco Use [...] st Contact Info) Description 03/14/2024 11:45 AM NOVELTY TWISTER OPERATOR Office Visit [facility] [address] Marvin Mckeon MD Three [facility] [address] [place], [place] [phone] 03/20/2024 11:30 AM NOVELTY TWISTER OPERATOR Office Visit [facility] Family Medicine - [place] 100 [place] [phone] Abiodun Segura II, MD 100 [place], [place] [phone] documented as of this encounter Goals Goal Patient Goal Type Associated Problems Recent Progress Patient-Stated? Author Family - family caregiver with be involved in care transitions and discharge planning Lifestyle No Natty Cheek, RN documented as of this encounter Visit Diagnoses Not on filedocumented in this encounter Additional Health Concerns Assessment Noted Time PHQ-9 Depression Total Score: 0 03/08/19 9:30 AM NOVELTY TWISTER OPERATOR documented as of this encounter Care Teams Data Warehousing Specialist Relationship Specialty Start Date End Date Abiodun Segura II, MD 100 [place], [place] [phone] PCP - General FAMILY PRACTICE 03/09/21 [place] [address] [place] [address] PODIATRY/SURGERY 05/05/22 documented as of this encounter
--- OUTSIDE RECORDS SUMMARY | 2024-03-03 01:20 | XMS_ITS | Encounter Summary ---
Author Organization [facility] Address [address] [place] [address]. [place] [address] [place] [address] Care Team Providers Care Health Information Internship Name Role Phone Colton SILVEIRA MD, Abiodun Rushing Primary Care Provider Victoriano Langston MD Unavailable [phone] Encounter Details Date Type Department Care Team [...] Recorded Patient Health Questionnaire-2 Score 0 05/05/2022 [facility] of Occupat ional Health - [...] [place] [facility] (including now)? No 09/03/2022 Comments No Sex [...] st Contact Info) Description 03/14/2024 11:45 AM BOILER TENDERS SUPERVISOR Office Visit [facility] [address] Marvin Mckeon MD [facility] [address] [place] [address] 03/20/2024 11:30 AM BOILER TENDERS SUPERVISOR Office Visit [facility] Family Medicine - [place] 100 [place] [phone] Abiodun Segura II, MD [address] [place] [phone] documented as of this encounter Goals Goal Patient Goal Type Associated Problems Recent Progress Patient-Stated? Author Family - family caregiver with be involved in care transitions and discharge planning Lifestyle No Natty Cheek, RN documented as of this encounter Visit Diagnoses Not on filedocumented in this encounter Additional Health Concerns Assessment Noted Time PHQ-9 Depression Total Score: 0 03/08/19 22 9:30 AM BOILER TENDERS SUPERVISOR documented as of this encounter Care Teams Health Information Internship Relationship Specialty Start Date End Date Abiodun Segura II, MD 100 [place] [address] PCP - General FAMILY PRACTICE 03/09/21 [place] [address] [place] [address] PODIATRY/SURGERY 05/05/22 documented as of this encounter
--- OUTSIDE RECORDS SUMMARY | 2024-03-03 01:20 | XMS_ITS | Encounter Summary ---
Author Organization [facility] Address [address] [place] [address]. [place] [address] [place] [address] Care Team Providers Care Byproducts Operator Name Role Phone Colton SILVEIRA MD, Abiodun Rushing Primary Care Provider Victoriano Langston MD Unavailable [phone] Reason for Visit * Auth/Cert (Routine) Specialty Diagnoses / Procedures Referred By Contxavier t Referred To Contact Diagnoses Peptic ulcer Epigastric abdominal pain peptic ulcer, epigastric pain Procedures UPPER GI ENDOSCOPY,DIAGNOSIS EGD Karlo Saldivar MD [address] [address] Phone: tel: fax: Referral ID Status Reason Start Date Expiration Date Visits Re quested Visits Authorized [id number] 1 1 Encounter Details Date Type Department Care Team (Latest Contact Info) Description 12/25/2022 10:03 AM TANK COOPER - 12/25/2022 12:[address] [facility] Hospital Encounter [facility] [place], [place] [address] Karlo Saldivar MD [address] [address] Discharge Disposition: Home or Self Care [...] Recorded Patient Health Questionnaire-2 Score 0 12/13/2022 [facility] Occupat ional Health - [...] slept in a prison (including now)? No 11/10/2022 Comments No Sex and Gender Information Value Date Recorded Sex Assigned at Female 12/17/2021 2:07 AM CDT Legal Sex Female 2:58 PM CDT Gender Identity Female 12/17/2021 2:07 AM CDT Sexual Orientation Straight 12/17/2021 2: 07 AM CDT documented as of this encounter Last Filed Vital Signs Vital Sign Reading Time Taken Comments Blood Pressure 159/88 12/25/2022 12:05 PM TANK COOPER Pulse 89 12/25/2022 11:45 AM TANK COOPER Temperature 36.8 ??C (98.3 ??F) 12/25/2022 11:[address] Respiratory Rate 15 12/25/2022 11:45 AM TANK COOPER Oxygen Saturation 98% 12/25/2022 12:05 PM TANK COOPER Inhaled Oxygen Concentration - - Weight 86.6 [...] Everywhere. * Upper GI Endoscopy Discharge Instructions (Bermudian) * General Anesthesia Discharge Instructions (Bermudian) documented in this encounter Medications at Time [...] of insulin ([facility]) 1 strip by Other route 2 (two) times daily. 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 Reasonable alternatives to the patient's proposed procedure/surgery including benefits, risks, and side effects related to the alternatives and the risks related to not receiving the proposed care were also discussed with the patient/family/personal physician relations representative. Questions were answered and the patient/family/personal physician relations representative verbalized understanding and desires to proceed. COOPER Source Note - Karlo Saldivar MD - [...] AM CST [facility] OpNote EGD Procedure Note Lena Mcneal 12/25/2022 1100 Procedure(s) (LRB): EGD (N/A) Surgeon(s): Karlo Saldivar MD Staff: GI Nurse: Kenia Michel RN bow tacker: Cassandra Dwyer Anesthesia: General Anesthesiologist: Douglas Loja MD TUBE WINDER HAND: Lupe Mcclain CRNA Pre-Op Diagnosis: peptic ulcer, [...] Time: 11:45 AM Voice recognition software utilized. COOPER documented in this encounter Plan of Treatment Upcoming Encounters Date Type Department Care Team (Late st Contact Info) Description 03/14/2024 11:45 AM TANK COOPER Office Visit [facility] [address] [address] Marvin Mckeon MD [address] [facility] [address] [place], [place] [address] 03/20/2024 11:30 AM TANK COOPER Office Visit [facility] Family Medicine - [place] 100 [place] [address] Abiodun Segura II, MD 100 [place] [address] Scheduled Orders Name Type Priority Associated Diagnoses [...] Comments UPPER GI ENDOSCOPY,DIAGNOSIS 12/25/2022 7:00 PM TANK COOPER Peptic ulcer Epigastric abdominal pain POCT GLUCOSE - CORREA DOCKED DEVICE Routine 12/25/2022 11:08 AM TANK COOPER documented in this encounter Results * POCT glucose (12/25/2022 11:08 AM TANK COOPER) GLUCOSE POC 98 70 - 99 mg/dL 12/25/2022 11:11 AM TANK COOPER [facility] 12/25/2022 11:0 8 AM TANK COOPER us Karlo Saldivar MD POCT ORDERABLES - DEVICE Final R esult [facility] 3 [place] [address], [place] [phone] documented in this encounter Visit Diagnoses Diagnosis [...] 1433, Pre-Op New Bag 12/25/2022 11:37 AM TANK COOPER 50 mL/hr documented in this encounter Active and Recently Administered Medications Due to Daylight Saving Time, this section may contain times in both CDT and TANK COOPER. Continuous Medication Order 12/23/2022 12/24/2022 12/25/2022 lactated ringers infusion at 10 mL/hr, Intravenous, Continuous (pre-procedure), Starting on Sun12/25/22 at 1100, Until Sun12/25/22 at 1433, Pre-Op 1137 (New Bag - Prov ider: Lupe Mcclain CRNA)1147 (Anesthesia Volume Adjustment - Provider: Lupe Mcclain CRNA) documented in this encounter Additional Health Concerns Assessment Noted Time PHQ-9 Depression Total Score: 0 03/08/19 22 9:30 AM TANK COOPER documented as of this encounter Care Teams Byproducts Operator Relationship Specialty Start Date End Date Abiodun Segura II, MD 100 [place] [address] PCP - General FAMILY PRACTICE 03/09/21 [place] [address] [place] [address] PODIATRY/SURGERY 05/05/22 documented as of this encounter
--- OUTSIDE RECORDS SUMMARY | 2024-03-03 01:20 | XMS_ITS | Encounter Summary ---
Author Organization [facility] Address [address] [place] [address]. [place] [address] [place] [address] Care Team Providers Care Foreign Languages Department Chair Name Role Phone Colton SILVEIRA MD, Abiodun Rushing Primary Care Provider Victoriano Langston MD Unavailable [phone] Reason for Visit * Reason Onset Date Comments Follow Up Call 11/08/2022 Patient seen the ER from 11/08-11/08/22 Encounter Details Date Type Department Care Team (Latest Contact Info) Description 11/09/2022 Hospital Follow-up Call [facility] [place] [address] Ryanne Lambert, YINA Follow Up [...] Recorded Patient Health Questionnaire-2 Score 0 05/05/2022 [facility] of Occupat ional [facility] [...] st Contact Info) Description 03/14/2024 11:45 AM MEAT PROCESSING CENTER MANAGER Office Visit [facility] [address] Marvin Mckeon MD [facility] Suite [facility] [place] [address] 03/20/2024 11:30 AM MEAT PROCESSING CENTER MANAGER Office Visit [facility] Family Medicine - [place] 100 [place] [phone] Abiodun Segura II, MD 100 [place] [address] documented as of this encounter Goals Goal Patient Goal Type Associated Problems Recent Progress Patient-Stated? Author Family - family caregiver with be involved in care transitions and discharge planning Lifestyle No Natty Cheek, RN documented as of this encounter Visit Diagnoses Not on filedocumented in this encounter Additional Health Concerns Assessment Noted Time PHQ-9 Depression Total Score: 0 03/08/19 9:30 AM MEAT PROCESSING CENTER MANAGER documented as of this encounter Care Teams Foreign Languages Department Chair Relationship Specialty Start Date End Date Abiodun Segura II, MD 100 [place] [address] PCP - General FAMILY PRACTICE 03/09/21 [place] [address] [place] [address] PODIATRY/SURGERY 05/05/22 documented as of this encounter
--- OUTSIDE RECORDS SUMMARY | 2024-03-03 01:20 | XMS_ITS | Encounter Summary ---
Author Organization [facility] Address [address] [place] [address]. [place] [address] [place] [address] Care Team Providers Care Shafting Worker Name Role Phone Colton SILVEIRA MD, Abiodun Rushing Primary Care Provider Victoriano Langston MD Unavailable [phone] Reason for Referral * Surgical (Routine) - Closed Specialty Diagnoses / Procedures Referred By Lyla chaney Referred To Contact Diagnoses Peptic ulcer Epigastric abdominal pain Procedures Case request operating room: EGD Gurinder Saldivar MD [address] [address] Phone: tel: fax: Referral ID Status Reason Start Date Expiration Date Visits Re quested Visits Authorized [id number] Closed 12/13/2022 12/14/2023 1 1 Encounter Details Date Type Department Care Team (Late st Contact Info) Description 12/13/[address] [facility] Multispecialty Care - [facility] 3 [facility] [address] [place] [address] Gurinder Saldivar MD 3 [facility] [address] [place] [address] Social History Tobacco Use Types Packs/Day Years [...] Recorded Patient Health Questionnaire-2 Score 0 12/13/2022 [facility] of Occupat ional Health - [...] st Contact Info) Description 03/14/2024 11:45 AM ROADSIDE MECHANIC Office Visit [facility]-[address] [address] Marvin Mkceon MD Three [facility] [address] [place], [place] [phone] 03/20/2024 11:30 AM ROADSIDE MECHANIC Office Visit [facility] Group Family Medicine - [place] 100 [place] [phone] Abiodun Segura II, MD 100 [place], [place] [phone] Scheduled Orders Name Type Priority Associated Diagnoses [...] Depression Total Score: 0 03/08/19 9:30 AM ROADSIDE MECHANIC documented as of this encounter Care Teams Shafting Worker Relationship Specialty Start Date End Date Abiodun Segura II, MD 100 [place], [place] [phone] PCP - General FAMILY PRACTICE 03/09/21 [place] [address] [place] [address] PODIATRY/SURGERY 05/05/22 documented as of this encounter
--- OUTSIDE RECORDS SUMMARY | 2024-03-03 01:20 | XMS_ITS | Encounter Summary ---
Author Organization [facility] Address [address] [place] [address]. [place] [address] [place] [address] Care Team Providers Care Car Shagger Name Role Phone Colton SILVEIRA MD, Abiodun Rushing Primary Care Provider Victoriano Langston MD Unavailable [phone] Reason for Visit * Reason Onset Date Comments Advice 12/22/2022 Encounter Details Date Type Department Care Team (Late st Contact Info) Description 12/22/2022 Telephone [facility] Group Family Medicine - [place] 100 [place] [address] Abiodun Segura II, MD 100 [place] [address] Advice Social History Tobacco Use [...] Recorded Patient Health Questionnaire-2 Score 0 12/13/2022 [facility] - Occupational Stress Questionnaire Answer [...] Assessment Author Status Yes 11/10/2022 3:37 AM MEILEET Sunshine Talamantes RN Active * Do you [...] needs antibiotic. Please call patient with advise [phone] documented in this encounter Plan of Treatment Upcoming Encounters Date Type Department Care Team (Late st Contact Info) Description 03/14/2024 11:45 AM SENIOR SOFTWARE PROJECT MANAGER Office Visit [facility]-[address] [address] Marvin Mckeon MD [address] [facility] [address] [place], [place] [phone] 03/20/2024 11:30 AM SENIOR SOFTWARE PROJECT MANAGER Office Visit [facility] Group Family Medicine - [place] 100 [place] [phone] Abiodun Segura II, MD 100 [place], [place] [phone] documented as of this encounter Goals Goal Patient Goal Type Associated Problems Recent Progress Patient-Stated? Author Family - family caregiver with be involved in care transitions and discharge planning Lifestyle No Natty Cheek, RN documented as of this encounter Visit Diagnoses Not on filedocumented in this encounter Additional Health Concerns Assessment Noted Time PHQ-9 Depression Total Score: 0 03/08/19 22 9:30 AM SENIOR SOFTWARE PROJECT MANAGER documented as of this encounter Care Teams Car Shagger Relationship Specialty Start Date End Date Abiodun Segura II, MD 100 [place], [place] [phone] PCP - General FAMILY PRACTICE 03/09/21 [place] [address] [place] [address] PODIATRY/SURGERY 05/05/22 documented as of this encounter
--- OUTSIDE RECORDS SUMMARY | 2024-03-03 01:20 | XMS_ITS | Encounter Summary ---
Author Organization [facility] Address [address] [place] [address]. [place] [address] [place] [address] Care Team Providers Care Spring Winder Name Role Phone Colton SILVEIRA MD, Abiodun Rushing Primary Care Provider Victoriano Langston MD Unavailable [phone] Encounter Details Date Type Department Care Team [...] in a skilled nursing (including now)? No 09/03/2022 Comments No Sex [...] Assessment Author Status No 10/11/2022 11:33 PM Amnada Ballesteros RN Active * Are you blind [...] st Contact Info) Description 03/14/2024 11:45 AM PATIENT DAY COORDINATOR Office Visit [facility] [phone] Marvin Mckeon MD [facility] [address] [place] [address] 03/20/2024 11:30 AM PATIENT DAY COORDINATOR Office Visit [facility] Family Medicine - [place] 100 [place] [phone] Abiodun Segura II, MD [address] [place] [phone] documented as of this encounter Goals Goal Patient Goal Type Associated Problems Recent Progress Patient-Stated? Author Family - family caregiver with be involved in care transitions and discharge planning Lifestyle No Natty Cheek, RN documented as of this encounter Visit Diagnoses Not on filedocumented in this encounter Additional Health Concerns Assessment Noted Time PHQ-9 Depression Total Score: 0 03/08/19 22 9:30 AM PATIENT DAY COORDINATOR documented as of this encounter Care Teams Spring Winder Relationship Specialty Start Date End Date Abiodun Segura II, MD 100 [place] [address] PCP - General FAMILY PRACTICE 03/09/21 [place] [address] [place] [address] PODIATRY/SURGERY 05/05/22 documented as of this encounter
--- OUTSIDE RECORDS SUMMARY | 2024-03-03 01:20 | XMS_ITS | Encounter Summary ---
Author Organization [facility] Address [address] [place] [address]. [place] [address] [place] [address] Care Team Providers Care Food Porter Name Role Phone Colton SILVEIRA MD, Abiodun Rushing Primary Care Provider Victoriano Langston MD Unavailable [phone] Encounter Details Date Type Department Care Team [...] Recorded Patient Health Questionnaire-2 Score 0 05/05/2022 [facility] - [...] Contact Info) Description 03/14/2024 11:45 AM ASSISTANT MEDIA PLANNER Office Visit [facility]-[address] [phone] Marvin Mckeon MD [facility] [address] [place] [address] 03/20/2024 11:30 AM ASSISTANT MEDIA PLANNER Office Visit [facility] Family Medicine - [place] 100 [place] [phone] Abiodun Segura II, MD [address] [place] [address] documented as of this encounter Goals Goal Patient Goal Type Associated Problems Recent Progress Patient-Stated? Author Family - family caregiver with be involved in care transitions and discharge planning Lifestyle No Natty Cheek, RN documented as of this encounter Visit Diagnoses Not on filedocumented in this encounter Additional Health Concerns Assessment Noted Time PHQ-9 Depression Total Score: 0 03/08/19 22 9:30 AM ASSISTANT MEDIA PLANNER documented as of this encounter Care Teams Food Porter Relationship Specialty Start Date End Date Abiodun Segura II, MD 100 [place] [address] PCP - General FAMILY PRACTICE 03/09/21 [place] [address] [place] [address] PODIATRY/SURGERY 05/05/22 documented as of this encounter
--- OUTSIDE RECORDS SUMMARY | 2024-03-03 01:20 | XMS_ITS | Encounter Summary ---
Author Organization [facility] Address [address] [place] [address]. [place] [address] [place] [address] Care Team Providers Care Infrastructure Analyst Name Role Phone Colton SILVEIRA MD, Abiodun Rushing Primary Care Provider Victoriano Langston MD Unavailable [phone] Encounter Details Date Type Department Care Team [...] Recorded Patient Health Questionnaire-2 Score 0 05/05/2022 [facility] [...] st Contact Info) Description 03/14/2024 11:45 AM ORNAMENTAL METAL WORKER Office Visit [facility]-[address] [phone] Marvin Mckeon MD [facility] [address] [place] [address] 03/20/2024 11:30 AM ORNAMENTAL METAL WORKER Office Visit [facility] Family Medicine - [place] 100 [place] [phone] Abiodun Segura II, MD [address] [place] [phone] documented as of this encounter Goals Goal Patient Goal Type Associated Problems Recent Progress Patient-Stated? Author Family - family caregiver with be involved in care transitions and discharge planning Lifestyle No Natty Cheek, RN documented as of this encounter Visit Diagnoses Not on filedocumented in this encounter Additional Health Concerns Assessment Noted Time PHQ-9 Depression Total Score: 0 03/08/19 22 9:30 AM ORNAMENTAL METAL WORKER documented as of this encounter Care Teams Infrastructure Analyst Relationship Specialty Start Date End Date Abiodun Segura II, MD 100 [place] [address] PCP - General FAMILY PRACTICE 03/09/21 [place] [address] [place] [address] PODIATRY/SURGERY 05/05/22 documented as of this encounter
--- OUTSIDE RECORDS SUMMARY | 2024-03-03 01:20 | XMS_ITS | Encounter Summary ---
Author Organization [facility] Address [address] [place] [address]. [place] [address] [place] [address] Care Team Providers Care Corrosion Engineer Name Role Phone Colton SILVEIRA MD, Abiodun Rushing Primary Care Provider Victoriano Langston MD Unavailable [phone] Reason for Referral * Consultation (Routine) - Closed Specialty Diagnoses / Procedures Referred By Lyla chaney Referred To Contact GASTROENTEROLOGY Diagnoses Vomiting History of stomach ulcers Abiodun Segura II, MD 100 [place] [address] Phone: tel: fax: Gurinder Saldivar MD [address] [address] Phone: tel: fax: Referral ID Status Reason Start Date Expiration Date Visits Re quested Visits Authorized [id number] Closed 11/06/2022 12/07/2023 99 99 Reason for Visit * Reason Onset Date Comments Referral 11/06/2022 Encounter Details Date Type Department Care Team (Late st Contact Info) Description 11/06/2022 Telephone [facility] Family Medicine - [place] 100 [place] [address] Abiodun Segura II, MD [address] [place] [phone] Referral Social History Tobacco Use Types Packs/Day [...] Recorded Patient Health Questionnaire-2 Score 0 05/05/2022 [facility] [place] [facility] Occupat ional Health - Occupational Stress [...] Saldivar for ulcers - GI Doctor [address] [facility] [address], [place] [address] Please call when ready: [phone] documented in this encounter Plan of Treatment Upcoming Encounters Date Type Department Care Team (Late st Contact Info) Description 03/14/2024 11:45 AM HUSKER OPERATOR Office Visit [facility]-[address] [phone] Marvin Mckeon MD Three [facility] [address] [place] [address] 03/20/2024 11:30 AM HUSKER OPERATOR Office Visit [facility] Family Medicine - [address] [phone] Abiodun Segura II, MD 100 [place] [address] Scheduled Referrals Name Type Priority Associated Diagnoses [...] Total Score: 0 03/08/19 22 9:30 AM HUSKER OPERATOR documented as of this encounter Care Teams Corrosion Engineer Relationship Specialty Start Date End Date Abiodun Segura II, MD 100 [place] [address] PCP - General FAMILY PRACTICE 03/09/21 [place] [address] [place] [address] PODIATRY/SURGERY 05/05/22 documented as of this encounter
--- OUTSIDE RECORDS SUMMARY | 2024-03-03 01:20 | XMS_ITS | Encounter Summary ---
Author Organization [facility] Address [address] [place] [address]. [place] [address] [place] [address] Care Team Providers Care Last Waxer Name Role Phone Colton SILVEIRA MD, Yasmin Rushing Primary Care Provider Victoriano Lansgton MD Unavailable [phone] Reason for Visit * Reason Comments Hospital Follow Up Patient presents for hospital follow up for kidney stones and ulcers Encounter Details Date Type Department Care Team (Late st Contact Info) Description 11/24/2022 7:30 AM CDT Office Visit [facility] Family Medicine - [address] [phone] Yasmin Valenzuela II, MD [address] [place] [address] Hospital Follow Up (Patient presents for [...] Recorded Patient Health Questionnaire-2 Score 0 05/05/2022 [facility] of Occupat ional Health - [...] not included. 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, bilateral legs (CMS/HCC) Intractable abdominal pain Abdominal pain Intractable vomiting Past Medical History: Diagnosis Date Arthritis Charcot foot due to diabetes mellitus (HHS/HCC) (CMS/HCC) LEFT FOOT Constipation COVID-19 Diabetes mellitus (HHS/HCC) ([facility]/HCC) Diabetic neuropathy (HHS/HCC) ([facility]) Gastric ulcer High cholesterol Hypertension Kidney stone [...] - 99 mg/dL ECG 12 lead Narrative [address] Test Date: 2022-11-09 Pat Name: LENA YOUNGBLOOD Department: Room: [facility] Gender: Female Electrician Radio: : 1970 Requested By: TAIWO FORBES Order Number: [id number] Reading MD: Alexei Rodríguez Measurements Intervals [place] Rate: 101 P: 7 NM: 169 QRS: 28 QRSD: 88 T: 56 [...] with long- term current use of insulin ([facility]/HCC) ([facility]) HEMOGLOBIN, GLYCOSYLATED Insulin Syringe-Needle U-100 (INSULIN SYRINGE 1CC/30GX5/16 ) 30G X 5/16 1 ML Misc 5. Charcot foot due to diabetes mellitus (HHS/HCC) ([facility]) 6. Hypercholesteremia LIPID PANEL 7. Acquired absence of other left toe(s) ([facility]) ([facility]) Plan: Orders Placed This Encounter Medications Insulin [...] with long- term current use of insulin ([facility]) ([facility]) Patient is restarted Trulicity 4.5 mg weekly [...] 5. Charcot foot due to diabetes mellitus ([facility]/HCC) ([facility]) Patient continues to remain as mobile as [...] the day of the encounter. This includes anpk-bn-kzxz and sth-loox-qz-face time I provided on the day of the encounter & excludes time spent performing separately reportable services. There are no discontinued medications. YASMIN VALENZUELA MD 11/24/2022 Portions of this note were dictated using [employer] speech recognition software. Occasional wrong wordor sound-alike substitutions may have occurred due to the inherent limitations of voice recognition software. Please read the chart carefully and recognize, using context, where the substitutions may have occurred. documented in this encounter Plan of Treatment Upcoming Encounters Date Type Department Care Team (Late st Contact Info) Description 03/14/2024 11:45 AM CNC OPERATOR PROGRAMMER Office Visit [facility]-[address] [phone] Marvin Mckeon MD Three [facility] [address] [place] [phone] 03/20/2024 11:30 AM CNC OPERATOR PROGRAMMER Office Visit [facility] Family Medicine - [address] [phone] Yasmin Valenzuela II, MD 100 [place] [address] documented as of this encounter Goals Goal Patient Goal Type Associated Problems Recent Progress Patient-Stated? Author Family - family caregiver with be involved in care transitions and discharge planning Lifestyle No Natty Cheek, RN documented as of this encounter Results * (ABNORMAL) LIPID PANEL (02/03/2023 10:42 AM CNC OPERATOR PROGRAMMER) CHOLESTEROL 187 <200 MG/DL 02/03/2023 11:44 AM [facility] TRIGLYCERIDES 242(H) <150 MG/DL 02/03/2023 11:44 AM [facility] HDL 43 >40.0 MG/DL 02/03/2023 11:44 AM [facility] LDL (CALCULATED) 96 <100 MG/DL 02/03/2023 11:44 AM [facility] NON HDL CHOLESTEROL 144(H) <130 MG/DL 02/03/2023 11:44 AM [facility] CHOL/HDL RATIO 4.3 0.0 - 4.5 02/03/2023 11:44 AM [facility] VLDL CALCULATION 48 5 - 55 MG/DL 02/03/2023 11:44 AM [facility] LIPID INTERPRETATION 02/03/2023 11:44 AM [facility] Comment: [facility] REPORT RECOMMENDATIONS: ?ADULT ?CHILD [...] ? >=160 ?>=130 02/03/2023 10:4 2 AM CNC OPERATOR PROGRAMMER Yasmin Valenzuela II, MD LABORATORY Final R esult Performing Organization Address City/State/[facility] Co de Phone Number [facility] [address] [place] [id number], * (ABNORMAL) COMPREHENSIVE METABOLIC PANEL (02/03/2023 10:42 AM CNC OPERATOR PROGRAMMER) GLUCOSE 99 70 - 99 MG/DL 02/03/2023 11:44 AM [facility] BUN 17 7 - 18 MG/DL 02/03/2023 11:44 AM [facility] CREATININE S/P/B 1.11(H) 0.55 - 1.02 MG/DL 02/03/2023 11:44 AM [facility] SODIUM S/P/B 138 136 - 145 MMOL/L 02/03/2023 11:44 AM [facility] POTASSIUM S/P/B 3.6 3.5 - 5.1 MMOL/L 02/03/2023 11:44 AM [facility] CHLORIDE S/P/B 105 100 - 108 MMOL/L 02/03/2023 11:44 AM [facility] CO2 28.7 21 - 32 MMOL/L 02/03/2023 11:44 AM [facility] CALCIUM S/P/B 9.3 8.5 - 10.1 MG/DL 02/03/2023 11:44 AM [facility] BILIRUBIN TOTAL S/P/B 0.5 0.2 - 1.2 MG/DL 02/03/2023 11:44 AM [facility] Comment: THIS ASSAY IS NOT RECOMMENDED FOR PATIENTS UNDERGOING TREATMENT WITH ELTROMBOPAG DUE TO THE POTENTIAL FOR FALSELY ELEVATED RESULTS. TOTAL PROTEIN S/P/B 8.9(H) 6.4 - 8.2 G/DL 02/03/2023 11:44 AM [facility] ALBUMIN S/P/B 3.4 3.4 - 5.0 G/DL 02/03/2023 11:44 AM [facility] AST 24 15 - 37 U/L 02/03/2023 11:44 AM [facility] ALT 30 14 - 55 U/L 02/03/2023 11:44 AM [facility] ALKALINE PHOSPHATASE S/P/B 155(H) 50 - 136 U/L 02/03/2023 11:44 AM [facility] ANION GAP 4.3(L) 5 - 15 MMOL/L 02/03/2023 11:44 AM [facility] BUN CREATININE RATIO 15.3 6 - 26 02/03/2023 11:44 AM [facility] A/G RATIO 0.6(L) 1.0 - 2.0 RATIO 02/03/2023 11:44 AM [facility] GFR ESTIMATE 60(L) >90 ML/MIN/1.7 3 M2 02/03/2023 11:44 AM [facility] Comment: NOTE: eGFR is not calculated for patients <18 years of age. This is an estimated GFR calculation using the new CKD EPI creatinine equation without race and so does not require a correction factor for race. This estimated GFR should not be used for calculating drug doses. 02/03/2023 10:4 2 AM CNC OPERATOR PROGRAMMER Yasmin Valenzuela II, MD LABORATORY Final R esult [facility] [address] [place] [address], [place] [phone] * CBC W/DIFF AUTOMATED (02/03/2023 10:42 AM CNC OPERATOR PROGRAMMER) WBC 8.8 4.5 - 11.0 x10'3/uL 02/03/2023 11:05 AM [facility] RBC 4.25 4.20 - 5.40 x10'6/uL 02/03/2023 11:05 AM [facility] HGB 12.8 12.0 - 16.0 G/DL 02/03/2023 11:05 AM [facility] HCT 38.6 38.0 - 48.0 % 02/03/2023 11:05 AM [facility] MCV 90.8 81.0 - 99.0 FL 02/03/2023 11:05 AM [facility] MCH 30.1 27.0 - 31.0 PG 02/03/2023 11:05 AM [facility] MCHC 33.2 32.0 - 36.0 G/DL 02/03/2023 11:05 AM [facility] RDW 13.1 11.5 - 14.5 % 02/03/2023 11:05 AM [facility] PLT 288 130 - 400 x10'3/uL 02/03/2023 11:05 AM [facility] MPV 11.5 9.3 - 12.2 FL 02/03/2023 11:05 AM [facility] DIFFERENTIAL TYPE AUTOMATED DIFFERENTIAL 02/03/2023 11:05 AM [facility] NEUTROPHILS % 61.5 % 02/03/2023 11:05 AM [facility] LYMPHOCYTES % 32.2 % 02/03/2023 11:05 AM [facility] MONOCYTES % 4.5 % 02/03/2023 11:05 AM [facility] EOSINOPHILS 1.0 % 02/03/2023 11:05 AM [facility] BASOPHILS 0.6 % 02/03/2023 11:05 AM [facility] IMMATURE GRANS % 0.2 % 02/04/20 11:05 AM [facility] ABS. NEUTROPHILS TOTAL 5.39 1.80 - 7.70 x10'3/uL 02/03/2023 11:05 AM [facility] ABS. LYMPHOCYTES 2.82 1.00 - 4.80 x10'3/uL 02/03/2023 11:05 AM [facility] ABS. MONOCYTES 0.39 0.24 - 0.86 x10'3/uL 02/03/2023 11:05 AM [facility] ABS. EOSINOPHILS 0.09 0.04 - 0.36 x10'3/uL 02/03/2023 11:05 AM [facility] ABS. BASOPHILS 0.05 0.01 - 0.08 x10'3/uL 02/03/2023 11:05 AM [facility] ABS. IMMATURE GRANULOCYTES 0.02 0.00 - 0.49 x10'3/uL 02/03/2023 11:05 AM CNC OPERATOR PROGRAMMER [facility] 02/03/2023 10:4 2 AM CNC OPERATOR PROGRAMMER Yasmin Valenzuela II, MD LABORATORY Final R esult Performing Organization Address [facility] Co de Phone Number [facility] [address] [place] [address], * (ABNORMAL) HEMOGLOBIN, GLYCOSYLATED (02/03/2023 10:42 AM CNC OPERATOR PROGRAMMER) HGB A1C 9.1(H) <5.7 % 02/03/2023 11:32 AM CNC OPERATOR PROGRAMMER [facility] Comment: ADA GUIDELINES 2010 5.7 TO 6.4% INCREASED RISK OF DIABETES > OR = 6.5% CONSISTENT WITH DIABETES ESTIMATED AVG GLUCOSE 214 mg/dL 02/03/2023 11:32 AM CNC OPERATOR PROGRAMMER [facility] 02/03/2023 10:4 2 AM CNC OPERATOR PROGRAMMER Yasmin Valenzuela II, MD LABORATORY Final R esult Performing Organization Address City/[facility] Co de Phone Number [facility] [address] [place] [address], documented in this encounter Visit Diagnoses Diagnosis Chronic superficial gastritis without bleeding- Primary Atrophic gastritis without mention of hemorrhage Renal disorder Unspecified disorder of kidney and ureter Primary hypertension Unspecified essential hypertension Type 2 diabetes mellitus with diabetic neuropathic arthropathy, with long-term current use of insulin ([facility]) Charcot foot due to diabetes mellitus ([facility]/HCC) Type II or unspecified type diabetes mellitus with neurological manifestations, not stated as uncontrolled Hypercholesteremia Pure hypercholesterolemia Acquired absence of other left toe(s) ([facility] HHS/HCC) documented in this encounter Additional Health Concerns Assessment Noted Time PHQ-9 Depression Total Score: 0 03/08/19 22 9:30 AM CNC OPERATOR PROGRAMMER documented as of this encounter Care Teams Last Waxer Relationship Specialty Start Date End Date Yasmin Valenzuela II, MD 100 [place] [address] PCP - General FAMILY PRACTICE 03/09/21 [place] [address] [place] [address] PODIATRY/SURGERY 05/05/22 documented as of this encounter
--- OUTSIDE RECORDS SUMMARY | 2024-03-03 01:20 | XMS_ITS | Encounter Summary ---
Author Organization [facility] Address [address] [place] [address]. [place] [address] [place] [address] Care Team Providers Care Sharepoint Application Architect Name Role Phone Colton SILVEIRA MD, Abiodun Rushing Primary Care Provider Victoriano Langston MD Unavailable [phone] Reason for Visit * Reason Onset Date Comments Information 11/24/2022 Encounter Details Date Type Department Care Team (Late st Contact Info) Description 11/24/2022 Telephone [facility] Family Medicine - [place] 100 [place] [phone] Abiodun Segura II, MD 100 [place] [address] Information Social History Tobacco Use [...] Patient Health Questionnaire-2 Score 0 05/05/2022 [facility] - Occupational Stress Questionnaire Answer Date [...] insulin syringe, not 30 Call Grecia from [facility] when able [phone] documented in this encounter Plan of Treatment Upcoming Encounters Date Type Department Care Team (Late st Contact Info) Description 03/14/2024 11:45 AM K 8 SCHOOL PRINCIPAL Office Visit [facility]-[address] [phone] Marvin Mcekon MD [address] [facility] [address] [place] [address] 03/20/2024 11:30 AM K 8 SCHOOL PRINCIPAL Office Visit [facility] Family Medicine - [place] 100 [place] [phone] Abiodun Segura II, MD 100 [place] [address] documented as of this encounter Goals Goal Patient Goal Type Associated Problems Recent Progress Patient-Stated? Author Family - family caregiver with be involved in care transitions and discharge planning Lifestyle No Natty Cheek, RN documented as of this encounter Visit Diagnoses Not on filedocumented in this encounter Additional Health Concerns Assessment Noted Time PHQ-9 Depression Total Score: 0 03/08/19 22 9:30 AM K 8 SCHOOL PRINCIPAL documented as of this encounter Care Teams Sharepoint Application Architect Relationship Specialty Start Date End Date Abiodun Segura II, MD 100 [place], [place] [address] PCP - General FAMILY PRACTICE 03/09/21 [place] [address] [place] [address] PODIATRY/SURGERY 05/05/22 documented as of this encounter
--- OUTSIDE RECORDS SUMMARY | 2024-03-03 01:20 | XMS_ITS | Encounter Summary ---
Author Organization [facility] Address [address] [place] [address]. [place] [address] [place] [address] Care Team Providers Care Internet Sales Representative Name Role Phone Colton SILVEIRA MD, Abiodun Rushing Primary Care Provider Victoriano Langston MD Unavailable [phone] Reason for Visit * Reason Onset Date Comments Follow Up Call 11/09/2022 Patient admitted to [facility] from 11/09-11/11/22. Encounter Details Date Type Department Care Team (Latest Contact Info) Description 11/14/2022 Hospital Follow-up Call [facility] [place] [address] Ryanne Lambert, YINA Follow Up Call (Patient admitted to [facility] from 11/09-11/11/22.) Social History [...] Recorded Patient Health Questionnaire-2 Score 0 05/05/2022 [facility] Occupat ional [facility] - Occupational Stress Questionnaire Answer Date Recorded [...] st Contact Info) Description 03/14/2024 11:45 AM PRE PAROLE COUNSELING AIDE Office Visit [facility] [phone] Marvin Mckeon MD [facility] [address] [place] [address] 03/20/2024 11:30 AM PRE PAROLE COUNSELING AIDE Office Visit [facility] Family Medicine - [place] [address] [place] [phone] Abiodun Segura II, MD 100 [place] [address] documented as of this encounter Goals Goal Patient Goal Type Associated Problems Recent Progress Patient-Stated? Author Family - family caregiver with be involved in care transitions and discharge planning Lifestyle No Natty Cheek, RN documented as of this encounter Visit Diagnoses Not on filedocumented in this encounter Additional Health Concerns Assessment Noted Time PHQ-9 Depression Total Score: 0 03/08/19 9:30 AM PRE PAROLE COUNSELING AIDE documented as of this encounter Care Teams Internet Sales Representative Relationship Specialty Start Date End Date Abiodun Segura II, MD 100 [place] [address] PCP - General FAMILY PRACTICE 03/09/21 [place] [address] [place] [address] PODIATRY/SURGERY 05/05/22 documented as of this encounter
--- OUTSIDE RECORDS SUMMARY | 2024-03-03 01:20 | XMS_ITS | Encounter Summary ---
Author Organization [facility] Address [address] [place] [address]. [place] [address] [place] [address] Care Team Providers Care Clinical Rehabilitation Aide Name Role Phone Colton SILVEIRA MD, Abiodun Rushing Primary Care Provider Victoriano Langston MD Unavailable [phone] Encounter Details Date Type Department Care Team (Late st Contact Info) Description 12/22/2022 Orders Only [facility] Family Medicine - [place] [address] [place] [address] Abiodun Segura II, MD 100 [place] [address] Social History Tobacco Use Types [...] Questionnaire-2 Score 0 12/13/2022 [facility] of Occupat ional Health - [...] Contact Info) Description 03/14/2024 11:45 AM AIR ROUTE CONTROLLER Office Visit [facility] [address] Marvin Mckeon MD [facility] [address] [place] [address] 03/20/2024 11:30 AM AIR ROUTE CONTROLLER Office Visit [facility] Medical [facility] Family Medicine - [place] [address] [place] [address] Abiodun Segura II, MD 100 [place] [address] documented as of this encounter Goals Goal [...] Total Score: 0 03/08/19 22 9:30 AM AIR ROUTE CONTROLLER documented as of this encounter Care Teams Clinical Rehabilitation Aide Relationship Specialty Start Date End Date Abiodun Segura II, MD 100 [place] [address] PCP - General FAMILY PRACTICE 03/09/21 [place] [address] [place] [address] PODIATRY/SURGERY 05/05/22 documented as of this encounter
--- OUTSIDE RECORDS SUMMARY | 2024-03-03 01:20 | XMS_ITS | Encounter Summary ---
Author Organization [facility] Address [address] [place] [address]. [place] [address] [place] [address] Care Team Providers Care Director Telehealth Name Role Phone Colton SILVEIRA MD, Abiodun Rushing Primary Care Provider Victoriano Langston MD Unavailable [phone] Reason for Visit * Auth/Cert (Routine) Specialty Diagnoses / Procedures Referred By Contac t Referred To Contact Diagnoses Peptic ulcer Epigastric abdominal pain peptic ulcer, epigastric pain Procedures UPPER GI ENDOSCOPY,DIAGNOSIS EGD Karlo Saldivar MD [address] [address] Phone: tel: fax: Referral ID Status Reason Start Date Expiration Date Visits Re quested Visits Authorized [id number] 1 1 Encounter Details Date Type Department Care Team (Late st Contact Info) Description 12/25/2022 11:00 AM SENIOR WATER RESOURCES ENGINEER - 12/25/2022 11:30 AM SENIOR WATER RESOURCES ENGINEER Surgery [facility] Endo/[place], [place] [address] Karlo Saldivar MD [address] [address] EGD Surgery Details Date/Time Status [...] Recorded Patient Health Questionnaire-2 Score 0 12/13/2022 [facility] of Occupat ional Health - Occupational Stress [...] Comments Blood Pressure 149/84 12/25/2022 10:36 AM SENIOR WATER RESOURCES ENGINEER Pulse 84 12/25/2022 10:36 AM SENIOR WATER RESOURCES ENGINEER Temperature 36 ??C (96.8 ??F) 12/25/2022 10:36 AM SENIOR WATER RESOURCES ENGINEER Respiratory Rate 20 12/25/2022 10:36 AM SENIOR WATER RESOURCES ENGINEER Oxygen Saturation 99% 12/25/2022 10:36 AM SENIOR WATER RESOURCES ENGINEER Inhaled Oxygen Concentration - - Weight 86.6 [...] Everywhere. * Upper GI Endoscopy Discharge Instructions (Samoan) * General Anesthesia Discharge Instructions (Samoan) documented in this encounter Medications at Time [...] with long-term current use of insulin ([facility] HHS/HCC) 1 strip by Other route 2 (two) times daily. Use as instructed 200 strip 3 3 02/26/19 25 HUMALOG MIX 75/25 (75-25) 100 UNIT/ML SuspensionIndicatio ns:Type 2 diabetes mellitus with retinopathy, with long-term current use of insulin, macular edema presence unspecified, unspecified laterality, unspecified retinopathy severity ([facility] HHS/HCC) INJECT 60 UNITS SUBCUTANEOUSLY ONCE DAILY IN THE MORNING THEN 55 ONCE DAILY IN THE EVENING 40 mL 2 3 01/31/20 23 Insulin Syringe-Needle U-100 (INSULIN SYRINGE 1CC/30GX5/16 ) 30G X 5/16 1 ML MiscIndications:Typ e 2 diabetes mellitus with diabetic neuropathic arthropathy, with long-term current use of insulin ([facility] HHS/HCC) Use as directed to inject insulin [...] during recuperation were discussed with the patient/family/personal special service representative. Reasonable alternatives to the patient's proposed procedure/surgery including benefits, risks, and side effects related to the alternatives and the risks related to not receiving the proposed care were also discussed with the patient/family/personal special service representative. Questions were answered and the patient/family/personal special service representative verbalized understanding and desires to proceed. OR WATER RESOURCES ENGINEER Source Note - Karlo Saldivar MD - [...] Charcot foot due to diabetes mellitus (HHS/HCC) (CMS/[facility]) LEFT FOOT Constipation COVID-19 Diabetes mellitus (HHS/HCC) [...] Saldivar MD - 12/25/2022 11:45 AM CST [facility] OpNote EGD Procedure Note Lena Mcneal 12/25/2022 1100 Procedure(s) (LRB): EGD (N/A) Surgeon(s): Karlo Saldivar MD Staff: GI Nurse: Kenia Michel RN drafter civil (cad): Cassandra Dwyer Anesthesia: General Anesthesiologist: Douglas Loja MD ENTRY LEVEL ACCOUNTING CLERK: Lupe Mcclain CRNA Pre-Op Diagnosis: peptic ulcer, [...] Time: 11:45 AM Voice recognition software utilized. OR WATER RESOURCES ENGINEER documented in this encounter Plan of Treatment Upcoming Encounters Date Type Department Care Team (Late st Contact Info) Description 03/14/2024 11:45 AM SENIOR WATER RESOURCES ENGINEER Office Visit [facility] [phone] Marvin Mckeon MD [address] [facility] [address] [place], [place] [id number] 03/20/2024 11:30 AM SENIOR WATER RESOURCES ENGINEER Office Visit [facility] Medical Group Family Medicine - [place] [address] [place] [address] Abiodun Segura II, MD 100 [place], [place] [phone] Scheduled Orders Name Type Priority Associated Diagnoses [...] Comments UPPER GI ENDOSCOPY,DIAGNOSIS 12/25/2022 7:00 PM SENIOR WATER RESOURCES ENGINEER Peptic ulcer Epigastric abdominal pain POCT GLUCOSE - CORREA DOCKED DEVICE Routine 12/25/2022 11:08 AM SENIOR WATER RESOURCES ENGINEER documented in this encounter Results * POCT glucose (12/25/2022 11:08 AM SENIOR WATER RESOURCES ENGINEER) GLUCOSE POC 98 70 - 99 mg/dL 12/25/2022 11:11 AM SENIOR WATER RESOURCES ENGINEER [facility] 12/25/2022 11:0 8 AM SENIOR WATER RESOURCES ENGINEER Karlo Saldivar MD POCT ORDERABLES - DEVICE Final R esult [facility] 3 [place] [address], documented in this encounter Visit Diagnoses Diagnosis [...] 1433, Pre-Op New Bag 12/25/2022 11:37 AM SENIOR WATER RESOURCES ENGINEER 50 mL/hr documented in this encounter Active and Recently Administered Medications Due to Daylight Saving Time, this section may contain times in both CDT and SENIOR WATER RESOURCES ENGINEER. Continuous Medication Order 12/23/2022 12/24/2022 12/25/2022 lactated ringers infusion at 10 mL/hr, Intravenous, Continuous (pre-procedure), Starting on Sun12/25/22 at 1100, Until Sun12/25/22 at 1433, Pre-Op 1137 (New Bag - Prov ider: Lupe Mcclain CRNA)1147 (Anesthesia Volume Adjustment - Provider: Lupe Mcclain CRNA) documented in this encounter Additional Health Concerns Assessment Noted Time PHQ-9 Depression Total Score: 0 03/08/19 22 9:30 AM SENIOR WATER RESOURCES ENGINEER documented as of this encounter Care Teams Director Telehealth Relationship Specialty Start Date End Date Abiodun Segura II, MD 100 [place] [address] PCP - General FAMILY PRACTICE 03/09/21 [place] [address] [place] [address] PODIATRY/SURGERY 05/05/22 documented as of this encounter
--- OUTSIDE RECORDS SUMMARY | 2024-03-03 01:21 | XMS_ITS | Encounter Summary ---
Author Organization [facility] Address [address] [place] [address]. [place] [address] [place] [address] Care Team Providers Care Industrial Servicer Name Role Phone Colton SILVEIRA MD, Abiodun Rushing Primary Care Provider Victoriano Langston MD Unavailable [phone] Encounter Details Date Type Department Care Team [...] Recorded Patient Health Questionnaire-2 Score 0 05/05/2022 [facility] of Occupat ional Health [...] slept in a chcf (including now)? No 09/03/2022 Comments No Sex [...] st Contact Info) Description 03/14/2024 11:45 AM AUTO PHONE INSTALLER Office Visit [facility] [address] Marvin Mckeon MD Three [facility] [address] [place] [address] 03/20/2024 11:30 AM AUTO PHONE INSTALLER Office Visit [facility] Medical [facility] Family Medicine - [place] 100 [place] [phone] Abiodun Segura II, MD 100 [place] [address] documented as of this encounter Goals Goal Patient Goal Type Associated Problems Recent Progress Patient-Stated? Author Family - family caregiver with be involved in care transitions and discharge planning Lifestyle No Natty Cheek, RN documented as of this encounter Visit Diagnoses Not on filedocumented in this encounter Additional Health Concerns Assessment Noted Time PHQ-9 Depression Total Score: 0 03/08/19 22 9:30 AM AUTO PHONE INSTALLER documented as of this encounter Care Teams Industrial Servicer Relationship Specialty Start Date End Date Abiodun Segura II, MD 100 [place] [address] PCP - General FAMILY PRACTICE 03/09/21 [place] [address] [place] [address] PODIATRY/SURGERY 05/05/22 documented as of this encounter
--- OUTSIDE RECORDS SUMMARY | 2024-03-03 01:21 | XMS_ITS | Encounter Summary ---
Author Organization [facility] Address [address] [place] [address]. [place] [address] [place] [address] Care Team Providers Care Refrigerating Engineer Name Role Phone Colton SILVEIRA MD, Abiodun Rushing Primary Care Provider Victoriano Langston MD Unavailable [phone] Reason for Visit * Reason Onset Date Comments Advice 09/26/2022 Encounter Details Date Type Department Care Team (Late st Contact Info) Description 09/26/2022 Telephone [facility] Medical Group Family Medicine - [place] 100 [place] [address] Abiodun Segura II, MD 100 [place] [address] Advice Social History Tobacco Use [...] Recorded Patient Health Questionnaire-2 Score 0 05/05/2022 [facility] - Occupational Stress Questionnaire Answer [...] 09/26/2022 9:18 AM CDT Patient was at [facility] ER 09/24/22 for stomache issues. She had a CAT Scan and was given IV floods. She is still having abd pain since on Trulicity. She is concerned and wants to know what to do about thismatter. Please call [phone] documented in this encounter Plan of Treatment Upcoming Encounters Date Type Department Care Team (Late st Contact Info) Description 03/14/2024 11:45 AM APPLIANCE INSTALLER Office Visit [facility] [address] Marvin Mckeon MD Three [facility] [address] [place], [place] [phone] 03/20/2024 11:30 AM APPLIANCE INSTALLER Office Visit [facility] Medical Group Family Medicine - [place] 100 [place] [phone] Abiodun Segura II, MD 100 [place], [place] [phone] documented as of this encounter Goals Goal Patient Goal Type Associated Problems Recent Progress Patient-Stated? Author Family - family caregiver with be involved in care transitions and discharge planning Lifestyle No Natty Cheek RN documented as of this encounter Visit Diagnoses Not on filedocumented in this encounter Additional Health Concerns Assessment Noted Time PHQ-9 Depression Total Score: 0 01/18/20 22 9:30 AM APPLIANCE INSTALLER documented as of this encounter Care Teams Refrigerating Engineer Relationship Specialty Start Date End Date Abiodun Segura II, MD 100 [place] [address] PCP - General FAMILY PRACTICE 03/09/21 [place] [address] [place] [address] PODIATRY/SURGERY 05/05/22 documented as of this encounter
--- OUTSIDE RECORDS SUMMARY | 2024-03-03 01:21 | XMS_ITS | Encounter Summary ---
Author Organization [facility] Address [address] [place] [address]. [place], [place] [address] [place] [address] Care Team Providers Care Poker Prop Player Name Role Phone Colton SILVEIRA MD, Abiodun Rushing Primary Care Provider Victoriano Langston MD Unavailable [phone] Reason for Visit * Reason Comments Pathology [...] e alcohol) few times per year [facility] Utilities Answer Date Recorded In the past 12 months has [employer], oil, or water [employer] threatened to shut off services in your [...] Patient Health Questionnaire-2 Score 1 03/05/2023 [facility] of Occupat ional Health - Occupational [...] or making decisions? No 03/06/2023 3:39 PM COMBATANT SWIMMER Teresa Amaya RN Active * Because of a physical, mental, or emotional condition, do you have serious difficulty concentrating, remembering, or making decisions? Answer Entry Date Author Status No 10/11/2022 11:33 PM CDT Amanda Qureshi RN Active documented in this encounter Plan of Treatment Upcoming Encounters Date Type Department Care Team (Late st Contact Info) Description 03/14/2024 11:45 AM COMBATANT SWIMMER Office Visit [facility] [address] [facility] [address] [place], [place] [phone] 03/20/2024 11:30 AM COMBATANT SWIMMER Office Visit [facility] Medical Group Family Medicine - [place] 100 [place] [phone] Abiodun Segura II, MD 100 [place] [address] documented as of this encounter Goals Goal [...] Total Score: 0 03/08/19 22 9:30 AM COMBATANT SWIMMER documented as of this encounter Care Teams Poker Prop Player Relationship Specialty Start Date End Date Abiodun Segura II, MD 100 [place] [address] PCP - General FAMILY PRACTICE 03/09/21 [place] [address] [place] [address] PODIATRY/SURGERY 05/05/22 documented as of this encounter
--- OUTSIDE RECORDS SUMMARY | 2024-03-03 01:21 | XMS_ITS | Encounter Summary ---
Author Organization [facility] Address [address] [place] [address]. [place], [place] [id number] [place] [address] Care Team Providers Care Director Of Event Sales Name Role Phone Colton SILVEIRA MD, Abiodun Rushing Primary Care Provider Victoriano Langston MD Unavailable [phone] Reason for Referral * Imaging (Urgent) - Closed Specialty Diagnoses / Procedures Referred By Contac t Referred To Contact RADIOLOGY Procedures US ABD LIMITED Ramesh Dexter DO [address] [address] Phone: tel: fax: Referral ID Status Reason Start Date Expiration Date Visits Re quested Visits Authorized [id number] Closed 01/18/2023 01/19/2024 1 1 OPERATOR * Imaging (Emergency) - Closed Specialty Diagnoses / Procedures Referred By Contac t Referred To Contact RADIOLOGY Procedures CT ABD+PEL W IV CON ONLY Tre Chung PA [address] [place] [address] Phone: tel: fax: Referral ID Status Reason Start Date Expiration Date Visits Re quested Visits Authorized [id number] Closed 10/11/2022 10/12/2023 1 1 Reason for Visit * Reason Comments Vomiting Abdominal Pain * Auth/Cert (Routine) Specialty Diagnoses / Procedures Referred By Contxavier t Referred To Contact Diagnoses Leukocytosis Intractable abdominal pain Intractable abdominal pain Procedures NONE Janelle Pimentel, DO 1 [place] [address] Phone: tel: fax: Referral ID Status Reason Start Date Expiration Date Visits Re quested Visits Authorized [id number] 1 1 Encounter Details Date Type Department Care Team (Late st Contact Info) Description 10/11/2022 3:00 PM CDT - 10/20/2022 12:00 PM CDT Hospital Encounter [facility] Med/Surg 3rd Floor [place], [place] [id number] [phone] Carroll Yen PA [address] [place] [address] Janelle Pimentel, DO [address] [place], [place] [address] [phone] Radha Gomez MD [place], [place] [id number] [phone] (Work) Holli Murray MD [place], [place] [id number] [phone] (Work) Farrukh Reed, DO [address] [place], [place] [id number] Ramesh Dexter, DO [address] [phone] Vomiting; Abdominal Pain Discharge Disposition: Home or [...] may be found under the media tab. OPERATOR * Gigi Sutton RN - 10/13/2022 1:03 [...] Verified as per chart. Pharmacy: [facility] PCP: Abiodun Segura Insurance Plan: [facility] Discharge needs: Care Coordination Team [...] daughter helps) Behavior Oriented;Cooperative Communication Talks;Understands speaking;Understands Armenian DC screening tool This is a screening [...] may be found under the media tab. OPERATOR documented in this encounter H&P Notes * June Leonard, FACILITY MANAGER HISTOLOGY-BC - 10/11/2022 10:38 PM CDT Hospitalist History [...] Charcot foot due to diabetes mellitus (HHS/HCC) ([facility]) LEFT FOOT Constipation COVID-19 Diabetes mellitus (HHS/HCC) ([facility]) Diabetic neuropathy (HHS/HCC) ([facility]) High cholesterol Hypertension Renal disorder had blockage [...] No results for input(s): PH, PCO2, PO2, [id number], BICARBWB, BASEDEFICIT, BASEEXCESS in the [id number] hours. 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 ESTEFANIAHONORIO [phone] Daughter No Ana Coronel [phone] Mother No FredisCali [phone] Spouse No Admitted from: Home Expect to [...] note is not present as a professional type copy examiner. this may occasionally confer an unintended meaning. Please reach out to provider so rectifications can bemade. JESSICA SALCEDO 10/12/22 Cosigned by Janelle Pimentel DO at 10/12/2022 7:03 AM CDT Associated attestation - Janelle Pimentle DO - 10/12/2022 7:03 AM CDT I have seen and examined the patient, and discussed the plan of care with June Leonard SPORTS BOOK SERVER. I reviewed her note and agree with [...] Charcot foot due to diabetes mellitus (HHS/HCC) ([facility]/HCC) LEFT FOOT Constipation COVID-19 Diabetes mellitus [...] encounter of 10/11/22 ECG 12 lead Narrative [place] Test Date: 2022-10-11 Pat Name: LENA YOUNGBLOOD Department: 41 Room: Gender: Female Bioinformatics Associate: [id number] : 1970 Requested By: TRE CHUNG Order Number: [id number] [place] MD: Measurements Intervals [place] Rate: 98 P: 46 MI: 167 QRS: 17 QRSD: 77 T: 23 [...] XR CHEST PORTABLE Final Result by User, [id number] (10/12 2219) CLINICAL HISTORY: Leukocytosis COMPARISON: 09/29/2022 TECHNIQUE: AP Portable View FINDINGS: Lungs are clear. No pneumothorax or pleural effusions evident. The cardiac silhouette, mediastinal contours, and pulmonary vessels appear within normal limits. No acute osseous abnormality. IMPRESSION: No acute findings. Referred By: Interpreted By: John Campos, 10/11/2022 10:[address] ABD+PEL W IV CON ONLY Final Result by User, [id number] (10/11 1936) EXAMINATION: CT ABD+PEL W CON [...] CYNTHIA Doyle - 10/11/2022 2:16 PM CDT [place], [place] EMERGENCY DEPARTMENT ENCOUNTER Medical Screening Examination [...] st Contact Info) Description 03/14/2024 11:45 AM JET OPERATOR Office Visit [facility]-[address] [phone] Marvin Mckeon MD [address] [facility] [address] [place], [place] [phone] 03/20/2024 11:30 AM JET OPERATOR Office Visit [facility] - [place] [address] [place] [phone] Abiodun Segura II, MD [address] [place], [place] [address] documented as of this encounter Goals Goal [...] - 99 mg/dL 11/01/2022 11:01 AM CDT [facility] 10/20/2022 11:5 5 AM CDT Farrukh Reed DO POCT ORDERABLES - DEVICE Final R esult [facility] [address] [place] [address], [place] [phone] * (ABNORMAL) BASIC METABOLIC PANEL (10/20/2022 8:55 AM CDT) [facility] GLUCOSE 122(H) 70 - 99 MG/DL 11/17/2022 9:59 AM CDT [facility] BUN 18 7 - 18 MG/DL 11/17/2022 9:59 AM CDT [facility] CREATININE S/P/B 1.10(H) 0.55 - 1.02 MG/DL 11/17/2022 9:59 AM CDT [facility] SODIUM S/P/B 141 136 - 145 MMOL/L 11/17/2022 9:59 AM CDT [facility] POTASSIUM S/P/B 4.6 3.5 - 5.1 MMOL/L 11/17/2022 9:59 AM CDT [facility] CHLORIDE S/P/B 110(H) 100 - 108 MMOL/L 11/17/2022 9:59 AM CDT [facility] CO2 27.4 21 - 32 MMOL/L 11/17/2022 9:59 AM T [facility] CALCIUM S/P/B 8.5 8.5 - 10.1 MG/DL 11/17/2022 9:59 AM T [facility] ANION GAP 3.6(L) 5 - 15 MMOL/L 11/17/2022 9:59 AM T [facility] BUN CREATININE RATIO 16.4 6 - 26 11/17/2022 9:59 AM T [facility] GFR ESTIMATE 61(L) >90 ML/MIN/1.7 3 M2 11/17/2022 9:59 AM T [facility] Comment: NOTE: eGFR is [...] LABORATORY Final Resul t Performing Organization Address City/[facility]/ZIP Co de Phone Number [facility] [address] [place] [address], * POCT glucose (10/20/2022 6:25 AM CDT) GLUCOSE POC 99 70 - 99 mg/dL 11/01/2022 11:01 AM CDT [facility] 10/20/2022 6:25 AM CDT Farrukh Reed DO POCT ORDERABLES - DEVICE Final R esult Performing Organization Address City/[facility] Co de Phone Number [facility] [address] [place] [address], [place] [phone] * (ABNORMAL) CBC W/DIFF AUTOMATED (10/20/2022 5:00 AM CDT) WBC 8.8 4.5 - 11.0 x10'3/uL 11/18/2022 1:27 PM CDT [facility] RBC 3.39(L) 4.20 - 5.40 x10'6/uL 11/18/2022 1:27 PM CDT [facility] HGB 10.2(L) 12.0 - 16.0 G/DL 11/18/2022 1:27 PM CDT [facility] HCT 32.4(L) 38.0 - 48.0 % 11/18/2022 1:27 PM CDT [facility] MCV 95.6 81.0 - 99.0 FL 11/18/2022 1:27 PM CDT [facility] MCH 30.1 27.0 - 31.0 PG 11/18/2022 1:27 PM CDT [facility] MCHC 31.5(L) 32.0 - 36.0 G/DL 11/18/2022 1:27 PM CDT [facility] RDW 14.7(H) 11.5 - 14.5 % 11/18/2022 1:27 PM CDT [facility] PLT 259 130 - 400 x10'3/uL 11/18/2022 1:27 PM CDT [facility] MPV 11.6 9.3 - 12.2 FL 11/18/2022 1:27 PM CDT [facility] DIFFERENTIAL TYPE AUTOMATED DIFFERENTIAL 11/18/2022 1:27 PM CDT [facility] NEUTROPHILS % 46.7 % 11/18/2022 1:27 PM CDT [facility] LYMPHOCYTES % 45.4 % 11/18/2022 1:27 PM CDT [facility] MONOCYTES % 5.2 % 11/18/2022 1:27 PM CDT [facility] EOSINOPHILS 1.8 % 11/18/2022 1:27 PM CDT [facility] BASOPHILS 0.7 % 11/18/2022 1:27 PM CDT [facility] IMMATURE GRANS % 0.2 % 11/19/19 1:27 PM CDT [facility] ABS. NEUTROPHILS TOTAL 4.11 1.80 - 7.70 x10'3/uL 11/18/2022 1:27 PM CDT [facility] ABS. LYMPHOCYTES 4.00 1.00 - 4.80 x10'3/uL 11/18/2022 1:27 PM CDT [facility] ABS. MONOCYTES 0.46 0.24 - 0.86 x10'3/uL 11/18/2022 1:27 PM CDT [facility] ABS. EOSINOPHILS 0.16 0.04 - 0.36 x10'3/uL 11/18/2022 1:27 PM CDT [facility] ABS. BASOPHILS 0.06 0.01 - 0.08 x10'3/uL 11/18/2022 1:27 PM CDT [facility] ABS. IMMATURE GRANULOCYTES 0.02 0.00 - 0.49 x10'3/uL 11/18/2022 1:27 PM CDT [facility] 10/20/2022 5:00 AM CDT Ramesh Dexter DO LABORATORY Final Resul t Performing Organization Address City/[facility]/ZIP Co de Phone Number [facility] [address] [place] [address], [place] [phone] * (ABNORMAL) POCT glucose (10/19/2022 3:58 PM CDT) GLUCOSE POC 130(H) 70 - 99 mg/dL 11/01/2022 11:19 AM CDT [facility] 10/19/2022 3:58 PM CDT Farrukh Reed DO POCT ORDERABLES - DEVICE Final R esult [facility] [address] [place] [address], [place] [phone] * (ABNORMAL) POCT glucose (10/19/2022 11:57 AM CDT) GLUCOSE POC 153(H) 70 - 99 mg/dL 11/01/2022 4:44 PM CDT [facility] 10/19/2022 11:5 7 AM CDT Farrukh Reedely CAMPOS POCT ORDERABLES - DEVICE Final R esult [facility] [address] [place] [address], * (ABNORMAL) URINALYSIS WI REFLEX TO CULTURE (10/19/2022 4:50 AM CDT) SPECIMEN TYPE URINE CLEAN CATCH 11/17/2022 2:13 PM CDT [facility] COLOR (U) LIGHT YELLOW 11/17/2022 9:57 AM CDT [facility] TRANSPARENCY CLEAR 11/17/2022 9:57 AM CDT [facility] SPECIFIC GRAVITY (U) 1.012 1.001 - 1.030 11/17/2022 9:57 AM CDT [facility] U PH 6.0 5.0 - 9.0 11/17/2022 9:57 AM CDT [facility] LEUKOCYTES (U) NEGATIVE NEGATIVE 11/17/2022 9:57 AM CDT [facility] NITRITES NEGATIVE NEGATIVE 11/17/2022 9:57 AM CDT [facility] PROTEIN RANDOM (U) NEGATIVE <30 MG/DL 11/17/2022 9:57 AM CDT [facility] GLUCOSE (U) NORMAL NORMAL MG/DL 11/17/2022 9:57 AM CDT [facility] KETONES MG/DL (U) NEGATIVE NEGATIVE MG/DL 11/17/2022 9:57 AM CDT [facility] UROBILINOGEN NORMAL NORMAL MG/DL 11/17/2022 9:57 AM CDT [facility] BILIRUBIN (U) NEGATIVE NEGATIVE MG/DL 11/17/2022 9:57 AM CDT [facility] BLOOD (U) NEGATIVE NEGATIVE 11/17/2022 9:57 AM CDT [facility] CULTURE & SENSITIVITY INDICATED? CULTURE IS NOT INDICATED 11/17/2022 9:57 AM CDT [facility] RBC/HPF <1 <6 /HPF 11/17/2022 9:57 AM CDT [facility] WBC/HPF 3 <6 /HPF 11/17/2022 9:57 AM CDT [facility] BACTERIA (U) RARE(A) NONE /HPF 11/17/2022 9:57 AM CDT [facility] SQUAMOUS EPITHELIALS RARE /HPF 11/17/2022 9:57 AM CDT [facility] MUCUS RARE /LPF 11/17/2022 9:57 AM CDT [facility] 10/19/2022 4:50 AM CDT us Ramesh Dexter DO URINE ORDERABLES Final Resu lt [facility] [address] [place] [address], * (ABNORMAL) COMPREHENSIVE METABOLIC PANEL (10/19/2022 3:44 AM CDT) GLUCOSE 178(H) 70 - 99 MG/DL 11/17/2022 9:56 AM CDT [facility] BUN 22(H) 7 - 18 MG/DL 11/17/2022 9:56 AM CDT [facility] CREATININE S/P/B 1.28(H) 0.55 - 1.02 MG/DL 11/17/2022 9:56 AM CDT [facility] SODIUM S/P/B 137 136 - 145 MMOL/L 11/17/2022 9:56 AM CDT [facility] POTASSIUM S/P/B 4.2 3.5 - 5.1 MMOL/L 11/17/2022 9:56 AM CDT [facility] CHLORIDE S/P/B 106 100 - 108 MMOL/L 11/17/2022 9:56 AM CDT [facility] CO2 30.3 21 - 32 MMOL/L 11/17/2022 9:56 AM CDT [facility] CALCIUM S/P/B 8.5 8.5 - 10.1 MG/DL 11/17/2022 9:56 AM CDT [facility] BILIRUBIN TOTAL S/P/B 0.5 0.2 - 1.2 MG/DL 11/17/2022 9:56 AM T [facility] Comment: THIS ASSAY IS NOT RECOMMENDED FOR PATIENTS UNDERGOING TREATMENT WITH ELTROMBOPAG DUE TO THE POTENTIAL FOR FALSELY ELEVATED RESULTS. TOTAL PROTEIN S/P/B 7.4 6.4 - 8.2 G/DL 11/17/2022 9:56 AM CDT [facility] ALBUMIN S/P/B 2.8(L) 3.4 - 5.0 G/DL 11/17/2022 9:56 AM CDT [facility] AST 12(L) 15 - 37 U/L 11/17/2022 9:56 AM CDT [facility] ALT 21 14 - 55 U/L 11/17/2022 9:56 AM T [facility] ALKALINE PHOSPHATASE S/P/B 129 50 - 136 U/L 11/17/2022 9:56 AM CDT [facility] ANION GAP 0.7(L) 5 - 15 MMOL/L 11/17/2022 9:56 AM CDT [facility] BUN CREATININE RATIO 17.2 6 - 26 11/17/2022 9:56 AM CDT [facility] A/G RATIO 0.6(L) 1.0 - 2.0 RATIO 11/17/2022 9:56 AM CDT [facility] GFR ESTIMATE 51(L) >90 ML/MIN/1.7 3 M2 11/17/2022 9:56 AM CDT [facility] Comment: NOTE: eGFR is not calculated for patients <18 years of age. This is an estimated GFR calculation using the new CKD EPI creatinine equation without race and so does not require a correction factor for race. This estimated GFR should not be used for calculating drug doses. 10/19/2022 3:44 AM CDT us Ramesh Dexter DO LABORATORY Final Resul t [facility] [address] [place] [address], * (ABNORMAL) CBC W/DIFF AUTOMATED (10/19/2022 3:44 AM CDT) WBC 9.8 4.5 - 11.0 x10'3/uL 11/18/2022 1:22 PM CDT [facility] RBC 3.51(L) 4.20 - 5.40 x10'6/uL 11/18/2022 1:22 PM CDT [facility] HGB 10.6(L) 12.0 - 16.0 G/DL 11/18/2022 1:22 PM CDT [facility] HCT 32.4(L) 38.0 - 48.0 % 11/18/2022 1:22 PM CDT [facility] MCV 92.3 81.0 - 99.0 FL 11/18/2022 1:22 PM CDT [facility] MCH 30.2 27.0 - 31.0 PG 11/18/2022 1:22 PM CDT [facility] MCHC 32.7 32.0 - 36.0 G/DL 11/18/2022 1:22 PM CDT [facility] RDW 13.2 11.5 - 14.5 % 11/18/2022 1:22 PM CDT [facility] PLT 270 130 - 400 x10'3/uL 11/18/2022 1:22 PM CDT [facility] MPV 11.6 9.3 - 12.2 FL 11/18/2022 1:22 PM CDT [facility] DIFFERENTIAL TYPE AUTOMATED DIFFERENTIAL 11/18/2022 1:22 PM CDT [facility] NEUTROPHILS % 53.8 % 11/18/2022 1:22 PM CDT [facility] LYMPHOCYTES % 38.5 % 11/18/2022 1:22 PM CDT [facility] MONOCYTES % 6.0 % 11/18/2022 1:22 PM CDT [facility] EOSINOPHILS 1.0 % 11/18/2022 1:22 PM CDT [facility] BASOPHILS 0.4 % 11/18/2022 1:22 PM CDT [facility] IMMATURE GRANS % 0.3 % 11/19/19 1:22 PM CDT [facility] ABS. NEUTROPHILS TOTAL 5.25 1.80 - 7.70 x10'3/uL 11/18/2022 1:22 PM CDT [facility] ABS. LYMPHOCYTES 3.76 1.00 - 4.80 x10'3/uL 11/18/2022 1:22 PM CDT [facility] ABS. MONOCYTES 0.59 0.24 - 0.86 x10'3/uL 11/18/2022 1:22 PM CDT [facility] ABS. EOSINOPHILS 0.10 0.04 - 0.36 x10'3/uL 11/18/2022 1:22 PM CDT [facility] ABS. BASOPHILS 0.04 0.01 - 0.08 x10'3/uL 11/18/2022 1:22 PM CDT [facility] ABS. IMMATURE GRANULOCYTES 0.03 0.00 - 0.49 x10'3/uL 11/18/2022 1:22 PM CDT [facility] 10/19/2022 3:44 AM CDT Ramesh Dexter DO LABORATORY Final Resul t Performing Organization Address City/[facility] Co de Phone Number [facility] [address] [place] [address], [place] [phone] * (ABNORMAL) POCT glucose (10/18/2022 4:35 PM CDT) GLUCOSE POC 139(H) 70 - 99 mg/dL 11/01/2022 4:44 PM CDT [facility] 10/18/2022 4:35 PM CDT Farrukh Reed DO POCT ORDERABLES - DEVICE Final R esult [facility] [address] [place] [address], [place] [phone] * POCT glucose (10/18/2022 11:31 AM CDT) GLUCOSE POC 83 70 - 99 mg/dL 11/01/2022 4:16 PM CDT [facility] 10/18/2022 11:3 1 AM CDT Farrukh Reed DO POCT ORDERABLES - DEVICE Final R esult [facility] [address] [place] [address], [place] [phone] * US ABD LIMITED (10/18/2022 10:45 AM CDT) Anatomical Region Laterality Modality Abdomen Ultrasound 01/20/2023 11:2 5 AM JET OPERATOR Impressions 01/20/2023 11:28 AM JET OPERATOR IMPRESSION: 1. Partially imaged right-sided hydronephrosis. 2. [...] 01/20/2023 11:25 AM Narrative 01/20/2023 11:28 AM JET OPERATOR EXAMINATION: Limited abdomen ultrasound: RUQ CLINICAL HISTORY: [...] COMPREHENSIVE METABOLIC PANEL (10/18/2022 5:07 AM CDT) [facility] GLUCOSE 79 70 - 99 MG/DL 11/17/2022 9:55 AM CDT [facility] BUN 23(H) 7 - 18 MG/DL 11/17/2022 9:55 AM CDT [facility] CREATININE S/P/B 1.37(H) 0.55 - 1.02 MG/DL 11/17/2022 9:55 AM CDT [facility] SODIUM S/P/B 135(L) 136 - 145 MMOL/L 11/17/2022 9:55 AM CDT [facility] POTASSIUM S/P/B 4.2 3.5 - 5.1 MMOL/L 11/17/2022 9:55 AM CDT [facility] CHLORIDE S/P/B 102 100 - 108 MMOL/L 11/17/2022 9:55 AM CDT [facility] CO2 31.6 21 - 32 MMOL/L 11/17/2022 9:55 AM CDT [facility] CALCIUM S/P/B 9.2 8.5 - 10.1 MG/DL 11/17/2022 9:55 AM CDT [facility] BILIRUBIN TOTAL S/P/B 0.4 0.2 - 1.2 MG/DL 11/17/2022 9:55 AM CDT [facility] Comment: THIS ASSAY IS NOT RECOMMENDED FOR PATIENTS UNDERGOING TREATMENT WITH ELTROMBOPAG DUE TO THE POTENTIAL FOR FALSELY ELEVATED RESULTS. TOTAL PROTEIN S/P/B 8.6(H) 6.4 - 8.2 G/DL 11/17/2022 9:55 AM CDT [facility] ALBUMIN S/P/B 3.4 3.4 - 5.0 G/DL 11/17/2022 9:55 AM CDT [facility] AST 19 15 - 37 U/L 11/17/2022 9:55 AM CDT [facility] ALT 23 14 - 55 U/L 11/17/2022 9:55 AM CDT [facility] ALKALINE PHOSPHATASE S/P/B 141(H) 50 - 136 U/L 11/17/2022 9:55 AM CDT [facility] ANION GAP 1.4(L) 5 - 15 MMOL/L 11/17/2022 9:55 AM CDT [facility] BUN CREATININE RATIO 16.8 6 - 26 11/17/2022 9:55 AM CDT [facility] A/G RATIO 0.7(L) 1.0 - 2.0 RATIO 11/17/2022 9:55 AM CDT [facility] GFR ESTIMATE 47(L) >90 ML/MIN/1.7 3 M2 11/17/2022 9:55 AM CDT [facility] Comment: NOTE: eGFR is not calculated for patients <18 years of age. This is an estimated GFR calculation using the new CKD EPI creatinine equation without race and so does not require a correction factor for race. This estimated GFR should not be used for calculating drug doses. 10/18/2022 5:07 AM CDT us Ramesh Dexter DO LABORATORY Final Resul t [facility] [address] [place] [address], [place] [phone] * (ABNORMAL) CBC W/DIFF AUTOMATED (10/18/2022 5:07 AM CDT) WBC 9.5 4.5 - 11.0 x10'3/uL 11/17/2022 6:08 PM CDT [facility] RBC 4.08(L) 4.20 - 5.40 x10'6/uL 11/17/2022 6:08 PM CDT [facility] HGB 12.5 12.0 - 16.0 G/DL 11/17/2022 6:08 PM CDT [facility] HCT 37.2(L) 38.0 - 48.0 % 11/17/2022 6:08 PM CDT [facility] MCV 91.2 81.0 - 99.0 FL 11/17/2022 6:08 PM CDT [facility] MCH 30.6 27.0 - 31.0 PG 11/17/2022 6:08 PM CDT [facility] MCHC 33.6 32.0 - 36.0 G/DL 11/17/2022 6:08 PM CDT [facility] RDW 13.0 11.5 - 14.5 % 11/17/2022 6:08 PM CDT [facility] PLT 291 130 - 400 x10'3/uL 11/17/2022 6:08 PM CDT [facility] MPV 11.3 9.3 - 12.2 FL 11/17/2022 6:08 PM CDT [facility] NEUTROPHILS % 63.0 % 11/17/2022 6:09 PM CDT [facility] LYMPHOCYTES % 30.0 % 11/17/2022 6:09 PM CDT [facility] MONOCYTES % 6.0 % 11/17/2022 6:09 PM CDT [facility] EOSINOPHILS 1.0 % 11/17/2022 6:09 PM CDT [facility] ABS. LYMPHOCYTES 2.85 1.00 - 4.80 x10'3/uL 11/17/2022 6:09 PM CDT [facility] ABS. NEUTROPHILS TOTAL 5.98 1.80 - 7.70 x10'3/uL 11/17/2022 6:09 PM CDT [facility] ABS. MONOCYTES 0.57 0.24 - 0.86 x10'3/uL 11/17/2022 6:09 PM CDT [facility] ABS. EOSINOPHILS 0.10 0.04 - 0.36 x10'3/uL 11/17/2022 6:09 PM CDT [facility] DIFFERENTIAL TYPE AUTOMATED DIFFERENTIAL 11/17/2022 6:09 PM CDT [facility] PLT EST. ADEQUATE 11/17/2022 6:09 PM CDT [facility] 10/18/2022 5:07 AM CDT Ramesh Dexter DO LABORATORY Final Resul t [facility] [address] [id number], [place] [phone] * (ABNORMAL) URINALYSIS WI REFLEX TO CULTURE (10/17/2022 10:30 PM CDT) SPECIMEN TYPE URINE CLEAN CATCH 11/17/2022 2:08 PM CDT [facility] COLOR (U) LIGHT YELLOW 11/17/2022 9:54 AM CDT [facility] TRANSPARENCY CLEAR 11/17/2022 9:54 AM CDT [facility] SPECIFIC GRAVITY (U) 1.015 1.001 - 1.030 11/17/2022 9:54 AM CDT [facility] U PH 5.5 5.0 - 9.0 11/17/2022 9:54 AM CDT [facility] LEUKOCYTES (U) NEGATIVE NEGATIVE 11/17/2022 9:54 AM CDT [facility] NITRITES NEGATIVE NEGATIVE 11/17/2022 9:54 AM CDT [facility] PROTEIN RANDOM (U) 20 <30 MG/DL 11/17/2022 9:54 AM CDT [facility] GLUCOSE (U) NORMAL NORMAL MG/DL 11/17/2022 9:54 AM CDT [facility] KETONES MG/DL (U) NEGATIVE NEGATIVE MG/DL 11/17/2022 9:54 AM CDT [facility] UROBILINOGEN NORMAL NORMAL MG/DL 11/17/2022 9:54 AM CDT [facility] BILIRUBIN (U) NEGATIVE NEGATIVE MG/DL 11/17/2022 9:54 AM CDT [facility] BLOOD (U) NEGATIVE NEGATIVE 11/17/2022 9:54 AM T [facility] CULTURE & SENSITIVITY INDICATED? CULTURE IS NOT INDICATED 11/17/2022 9:54 AM CDT [facility] RBC/HPF 1 <6 /HPF 11/17/2022 9:54 AM CDT [facility] WBC/HPF 4 <6 /HPF 11/17/2022 9:54 AM T [facility] BACTERIA (U) FEW(A) NONE /HPF 11/17/2022 9:54 AM CDT [facility] SQUAMOUS EPITHELIALS RARE /HPF 11/17/2022 9:54 AM CDT [facility] MUCUS RARE /LPF 11/17/2022 9:54 AM T [facility] 10/17/2022 10:3 0 PM CDT us Ramesh Dexter DO URINE ORDERABLES Final Resu lt [facility] [address] [place] [address], [place] [phone] * (ABNORMAL) POCT glucose (10/17/2022 4:47 PM CDT) GLUCOSE POC 162(H) 70 - 99 mg/dL 11/01/2022 4:44 PM CDT [facility] 10/17/2022 4:47 PM CDT Farrukh Reed POCT ORDERABLES - DEVICE Final R esult [facility] [address] [place] [address], [place] [phone] * (ABNORMAL) POCT glucose (10/17/2022 10:43 AM CDT) GLUCOSE POC 62(L) 70 - 99 mg/dL 11/01/2022 4:44 PM CDT [facility] 10/17/2022 10:4 3 AM CDT Toimaria c Reed DO POCT ORDERABLES - DEVICE Final R esult [facility] [address] [place] [address], [place] [phone] * (ABNORMAL) CBC W/DIFF AUTOMATED (10/17/2022 6:00 AM CDT) WBC 8.4 4.5 - 11.0 x10'3/uL 11/17/2022 5:59 PM CDT [facility] RBC 3.90(L) 4.20 - 5.40 x10'6/uL 11/17/2022 5:59 PM CDT [facility] HGB 11.6(L) 12.0 - 16.0 G/DL 11/17/2022 5:59 PM CDT [facility] HCT 35.6(L) 38.0 - 48.0 % 11/17/2022 5:59 PM CDT [facility] MCV 91.3 81.0 - 99.0 FL 11/17/2022 5:59 PM CDT [facility] MCH 29.7 27.0 - 31.0 PG 11/17/2022 5:59 PM CDT [facility] MCHC 32.6 32.0 - 36.0 G/DL 11/17/2022 5:59 PM CDT [facility] RDW 13.2 11.5 - 14.5 % 11/17/2022 5:59 PM CDT [facility] PLT 290 130 - 400 x10'3/uL 11/17/2022 5:59 PM CDT [facility] MPV 11.2 9.3 - 12.2 FL 11/17/2022 5:59 PM CDT [facility] NEUTROPHILS % 56.0 % 11/17/2022 5:59 PM CDT [facility] LYMPHOCYTES % 36.0 % 11/17/2022 5:59 PM CDT [facility] MONOCYTES % 6.0 % 11/17/2022 5:59 PM CDT [facility] EOSINOPHILS 2.0 % 11/17/2022 5:59 PM CDT [facility] ABS. LYMPHOCYTES 3.02 1.00 - 4.80 x10'3/uL 11/17/2022 5:59 PM CDT [facility] ABS. NEUTROPHILS TOTAL 4.71 1.80 - 7.70 x10'3/uL 11/17/2022 5:59 PM CDT [facility] ABS. MONOCYTES 0.50 0.24 - 0.86 x10'3/uL 11/17/2022 5:59 PM CDT [facility] ABS. EOSINOPHILS 0.17 0.04 - 0.36 x10'3/uL 11/17/2022 5:59 PM CDT [facility] DIFFERENTIAL TYPE AUTOMATED DIFFERENTIAL 11/17/2022 5:59 PM CDT [facility] PLT EST. ADEQUATE 11/17/2022 5:59 PM CDT [facility] 10/17/2022 6:00 AM CDT us Ramesh Dexter DO LABORATORY Final Resul t [facility] [address] [place] [address], [place] [phone] * (ABNORMAL) BASIC METABOLIC PANEL (10/17/2022 6:00 AM CDT) GLUCOSE 138(H) 70 - 99 MG/DL 11/17/2022 9:52 AM CDT [facility] BUN 17 7 - 18 MG/DL 11/17/2022 9:52 AM CDT [facility] CREATININE S/P/B 1.17(H) 0.55 - 1.02 MG/DL 11/17/2022 9:52 AM CDT [facility] SODIUM S/P/B 139 136 - 145 MMOL/L 11/17/2022 9:52 AM CDT [facility] POTASSIUM S/P/B 4.2 3.5 - 5.1 MMOL/L 11/17/2022 9:52 AM CDT [facility] CHLORIDE S/P/B 104 100 - 108 MMOL/L 11/17/2022 9:52 AM CDT [facility] CO2 28.2 21 - 32 MMOL/L 11/17/2022 9:52 AM CDT [facility] CALCIUM S/P/B 9.2 8.5 - 10.1 MG/DL 11/17/2022 9:52 AM CDT [facility] ANION GAP 6.8 5 - 15 MMOL/L 11/17/2022 9:52 AM CDT [facility] BUN CREATININE RATIO 14.5 6 - 26 11/17/2022 9:52 AM CDT [facility] GFR ESTIMATE 56(L) >90 ML/MIN/1.7 3 M2 11/17/2022 9:52 AM CDT [facility] Comment: NOTE: eGFR is [...] LABORATORY Final Resul t Performing Organization Address City/[facility] Co de Phone Number [facility] [address] [place] [address], [place] [phone] * POCT glucose (10/16/2022 4:07 PM CDT) GLUCOSE POC 99 70 - 99 mg/dL 11/01/2022 4:44 PM CDT [facility] 10/16/2022 4:07 PM CDT Farrukh Reed DO POCT ORDERABLES - DEVICE Final R esult [facility] [address] [place] [address], [place] [phone] * (ABNORMAL) POCT glucose (10/16/2022 10:28 AM CDT) GLUCOSE POC 110(H) 70 - 99 mg/dL 11/01/2022 4:44 PM CDT [facility] 10/16/2022 10:2 8 AM CDT Toimaria c Derek CAMPOS POCT ORDERABLES - DEVICE Final R esult [facility] [address] [place] [address], [place] [phone] * POCT glucose (10/16/2022 7:19 AM CDT) GLUCOSE POC 87 70 - 99 mg/dL 11/01/2022 4:44 PM CDT [facility] 10/16/2022 7:19 AM CDT Farrukh Reed DO POCT ORDERABLES - DEVICE Final R esult [facility] [address] [place] [address], * (ABNORMAL) POCT glucose (10/15/2022 9:07 PM CDT) GLUCOSE POC 169(H) 70 - 99 mg/dL 11/01/2022 11:19 AM CDT [facility] 10/15/2022 9:07 PM CDT Farrukh Reed DO POCT ORDERABLES - DEVICE Final R esult Performing Organization Address City/[facility]/ZIP Co de Phone Number [facility] [address] [place] [address], [place] [phone] * (ABNORMAL) POCT glucose (10/15/2022 4:02 PM CDT) GLUCOSE POC 111(H) 70 - 99 mg/dL 11/01/2022 11:19 AM CDT [facility] 10/15/2022 4:02 PM CDT Farrukh Reed DO POCT ORDERABLES - DEVICE Final R esult Performing Organization Address [facility] Co de Phone Number [facility] [address] [place] [address], [place] [phone] * (ABNORMAL) POCT glucose (10/15/2022 11:53 AM CDT) GLUCOSE POC 126(H) 70 - 99 mg/dL 11/01/2022 11:19 AM CDT [facility] 10/15/2022 11:5 3 AM CDT Farrukh Reed DO POCT ORDERABLES - DEVICE Final R esult Performing Organization Address City/[facility]/ZIP Co de Phone Number [facility] [address] [place] [address], [place] [phone] * POCT glucose (10/15/2022 5:22 AM CDT) GLUCOSE POC 81 70 - 99 mg/dL 11/01/2022 11:19 AM CDT [facility] 10/15/2022 5:22 AM CDT us Farrukh Reedely CAMPOS POCT ORDERABLES - DEVICE Final R esult [facility] [address] [place] [address], * (ABNORMAL) COMPREHENSIVE METABOLIC PANEL (10/15/2022 5:15 AM CDT) [facility] GLUCOSE 92 70 - 99 MG/DL 10/28/2022 7:10 PM CDT [facility] BUN 12 7 - 18 MG/DL 10/28/2022 7:10 PM CDT [facility] CREATININE S/P/B 1.02 0.55 - 1.02 MG/DL 10/28/2022 7:10 PM CDT [facility] SODIUM S/P/B 140 136 - 145 MMOL/L 10/28/2022 7:10 PM CDT [facility] POTASSIUM S/P/B 4.2 3.5 - 5.1 MMOL/L 10/28/2022 7:10 PM CDT [facility] CHLORIDE S/P/B 109(H) 100 - 108 MMOL/L 10/28/2022 7:10 PM CDT [facility] CO2 26.9 21 - 32 MMOL/L 10/28/2022 7:10 PM CDT [facility] CALCIUM S/P/B 9.6 8.5 - 10.1 MG/DL 10/28/2022 7:10 PM CDT [facility] BILIRUBIN TOTAL S/P/B 0.3 0.2 - 1.2 MG/DL 10/28/2022 7:10 PM CDT [facility] Comment: THIS ASSAY IS NOT RECOMMENDED FOR PATIENTS UNDERGOING TREATMENT WITH ELTROMBOPAG DUE TO THE POTENTIAL FOR FALSELY ELEVATED RESULTS. TOTAL PROTEIN S/P/B 7.9 6.4 - 8.2 G/DL 10/28/2022 7:10 PM CDT [facility] ALBUMIN S/P/B 3.0(L) 3.4 - 5.0 G/DL 10/28/2022 7:10 PM CDT [facility] AST 19 15 - 37 U/L 10/28/2022 7:10 PM CDT [facility] ALT 24 14 - 55 U/L 10/28/2022 7:10 PM CDT [facility] ALKALINE PHOSPHATASE S/P/B 134 50 - 136 U/L 10/28/2022 7:10 PM CDT [facility] ANION GAP 4.1(L) 5 - 15 MMOL/L 10/28/2022 7:10 PM CDT [facility] BUN CREATININE RATIO 11.8 6 - 26 10/28/2022 7:10 PM T [facility] A/G RATIO 0.6(L) 1.0 - 2.0 RATIO 10/28/2022 7:10 PM T [facility] GFR ESTIMATE 67(L) >90 ML/MIN/1.7 3 M2 10/28/2022 7:10 PM CDT [facility] Comment: NOTE: eGFR is not calculated for patients <18 years of age. This is an estimated GFR calculation using the new CKD EPI creatinine equation without race and so does not require a correction factor for race. This estimated GFR should not be used for calculating drug doses. 10/15/2022 5:15 AM CDT Nanda Cartagena MD LABORATORY Final Res ult [facility] [address] [place] [address], [place] [phone] * (ABNORMAL) CBC W/DIFF AUTOMATED (10/15/2022 5:15 AM CDT) [facility] Signature WBC 8.7 4.5 - 11.0 x10'3/uL 10/28/2022 7:10 PM CDT [facility] RBC 3.82(L) 4.20 - 5.40 x10'6/uL 10/28/2022 7:10 PM CDT [facility] HGB 11.3(L) 12.0 - 16.0 G/DL 10/28/2022 7:10 PM CDT [facility] HCT 35.5(L) 38.0 - 48.0 % 10/28/2022 7:10 PM CDT [facility] MCV 92.9 81.0 - 99.0 FL 10/28/2022 7:10 PM CDT [facility] MCH 29.6 27.0 - 31.0 PG 10/28/2022 7:10 PM CDT [facility] MCHC 31.8(L) 32.0 - 36.0 G/DL 10/28/2022 7:10 PM CDT [facility] RDW 13.2 11.5 - 14.5 % 10/28/2022 7:10 PM CDT [facility] PLT 276 130 - 400 x10'3/uL 10/28/2022 7:10 PM CDT [facility] MPV 11.2 9.3 - 12.2 FL 10/28/2022 7:10 PM CDT [facility] DIFFERENTIAL TYPE AUTOMATED DIFFERENTIAL 10/28/2022 7:10 PM CDT [facility] NEUTROPHILS % 54.7 % 10/28/2022 7:10 PM CDT [facility] LYMPHOCYTES % 37.9 % 10/28/2022 7:10 PM CDT [facility] MONOCYTES % 5.2 % 10/28/2022 7:10 PM CDT [facility] EOSINOPHILS 1.4 % 10/28/2022 7:10 PM CDT [facility] BASOPHILS 0.5 % 10/28/2022 7:10 PM CDT [facility] IMMATURE GRANS % 0.3 % 10/29/19 7:10 PM CDT [facility] ABS. NEUTROPHILS TOTAL 4.77 1.80 - 7.70 x10'3/uL 10/28/2022 7:10 PM CDT [facility] ABS. LYMPHOCYTES 3.30 1.00 - 4.80 x10'3/uL 10/28/2022 7:10 PM CDT [facility] ABS. MONOCYTES 0.45 0.24 - 0.86 x10'3/uL 10/28/2022 7:10 PM CDT [facility] ABS. EOSINOPHILS 0.12 0.04 - 0.36 x10'3/uL 10/28/2022 7:10 PM CDT [facility] ABS. BASOPHILS 0.04 0.01 - 0.08 x10'3/uL 10/28/2022 7:10 PM CDT [facility] ABS. IMMATURE GRANULOCYTES 0.03 0.00 - 0.49 x10'3/uL 10/28/2022 7:10 PM CDT [facility] 10/15/2022 5:15 AM CDT us Nanda Cartagena MD LABORATORY Final Res ult [facility] [address] [place] [address], [place] [phone] * (ABNORMAL) POCT glucose (10/14/2022 8:51 PM CDT) GLUCOSE POC 148(H) 70 - 99 mg/dL 10/14/2022 8:52 PM CDT [facility] 10/14/2022 8:51 PM CDT Farrukh Reed DO POCT ORDERABLES - DEVICE Final R esult [facility] [address] [place] [address], [place] [phone] * (ABNORMAL) POCT glucose (10/14/2022 4:02 PM CDT) GLUCOSE POC 106(H) 70 - 99 mg/dL 10/14/2022 5:17 PM CDT [facility] 10/14/2022 4:02 PM CDT Farrukh Reed DO POCT ORDERABLES - DEVICE Final R esult Performing Organization Address City/[facility]/ZIP Co de Phone Number [facility] [address] [place] [address], [place] [phone] * (ABNORMAL) POCT glucose (10/14/2022 11:38 AM CDT) GLUCOSE POC 129(H) 70 - 99 mg/dL 10/15/2022 2:14 AM CDT [facility] 10/14/2022 11:3 8 AM CDT Farrukh Reed DO POCT ORDERABLES - DEVICE Final R esult [facility] [address] [place] [address], [place] [phone] * (ABNORMAL) COMPREHENSIVE METABOLIC PANEL (10/14/2022 4:34 AM CDT) [facility] GLUCOSE 115(H) 70 - 99 MG/DL 10/14/2022 5:10 AM CDT [facility] BUN 17 7 - 18 MG/DL 10/14/2022 5:10 AM CDT [facility] CREATININE S/P/B 1.09(H) 0.55 - 1.02 MG/DL 10/14/2022 5:10 AM CDT [facility] SODIUM S/P/B 139 136 - 145 MMOL/L 10/14/2022 5:10 AM CDT [facility] POTASSIUM S/P/B 4.1 3.5 - 5.1 MMOL/L 10/14/2022 5:10 AM CDT [facility] CHLORIDE S/P/B 108 100 - 108 MMOL/L 10/14/2022 5:10 AM CDT [facility] CO2 25.4 21 - 32 MMOL/L 10/14/2022 5:10 AM CDT [facility] CALCIUM S/P/B 8.9 8.5 - 10.1 MG/DL 10/14/2022 5:10 AM CDT [facility] BILIRUBIN TOTAL S/P/B 0.4 0.2 - 1.2 MG/DL 10/14/2022 5:10 AM CDT [facility] Comment: THIS ASSAY IS NOT RECOMMENDED FOR PATIENTS UNDERGOING TREATMENT WITH ELTROMBOPAG DUE TO THE POTENTIAL FOR FALSELY ELEVATED RESULTS. TOTAL PROTEIN S/P/B 8.0 6.4 - 8.2 G/DL 10/14/2022 5:10 AM CDT [facility] ALBUMIN S/P/B 3.0(L) 3.4 - 5.0 G/DL 10/14/2022 5:10 AM CDT [facility] AST 19 15 - 37 U/L 10/14/2022 5:10 AM CDT [facility] ALT 23 14 - 55 U/L 10/14/2022 5:10 AM CDT [facility] ALKALINE PHOSPHATASE S/P/B 120 50 - 136 U/L 10/14/2022 5:10 AM CDT [facility] ANION GAP 5.6 5 - 15 MMOL/L 10/14/2022 5:10 AM CDT [facility] BUN CREATININE RATIO 15.6 6 - 26 10/14/2022 5:10 AM CDT [facility] A/G RATIO 0.6(L) 1.0 - 2.0 RATIO 10/14/2022 5:10 AM CDT [facility] GFR ESTIMATE 62(L) >90 ML/MIN/1.7 3 M2 10/14/2022 5:10 AM CDT [facility] Comment: NOTE: eGFR is not calculated for patients <18 years of age. This is an estimated GFR calculation using the new CKD EPI creatinine equation without race and so does not require a correction factor for race. This estimated GFR should not be used for calculating drug doses. 10/14/2022 4:34 AM CDT Nanda Cartagena MD LABORATORY Final Res ult [facility] [address] [place] [address], [place] [phone] * (ABNORMAL) CBC W/DIFF AUTOMATED (10/14/2022 4:34 AM CDT) WBC 10.3 4.5 - 11.0 x10'3/uL 10/14/2022 4:48 AM CDT [facility] RBC 3.86(L) 4.20 - 5.40 x10'6/uL 10/14/2022 4:48 AM CDT [facility] HGB 11.6(L) 12.0 - 16.0 G/DL 10/14/2022 4:48 AM CDT [facility] HCT 34.9(L) 38.0 - 48.0 % 10/14/2022 4:48 AM CDT [facility] MCV 90.4 81.0 - 99.0 FL 10/14/2022 4:48 AM CDT [facility] MCH 30.1 27.0 - 31.0 PG 10/14/2022 4:48 AM CDT [facility] MCHC 33.2 32.0 - 36.0 G/DL 10/14/2022 4:48 AM CDT [facility] RDW 13.1 11.5 - 14.5 % 10/14/2022 4:48 AM CDT [facility] PLT 298 130 - 400 x10'3/uL 10/14/2022 4:48 AM CDT [facility] MPV 11.2 9.3 - 12.2 FL 10/14/2022 4:48 AM CDT [facility] DIFFERENTIAL TYPE AUTOMATED DIFFERENTIAL 10/14/2022 4:48 AM CDT [facility] NEUTROPHILS % 61.5 % 10/14/2022 4:48 AM CDT [facility] LYMPHOCYTES % 32.1 % 10/14/2022 4:48 AM CDT [facility] MONOCYTES % 4.1 % 10/14/2022 4:48 AM CDT [facility] EOSINOPHILS 1.4 % 10/14/2022 4:48 AM CDT [facility] BASOPHILS 0.5 % 10/14/2022 4:48 AM CDT [facility] IMMATURE GRANS % 0.4 % 10/15/19 4:48 AM CDT [facility] ABS. NEUTROPHILS TOTAL 6.32 1.80 - 7.70 x10'3/uL 10/14/2022 4:48 AM CDT [facility] ABS. LYMPHOCYTES 3.29 1.00 - 4.80 x10'3/uL 10/14/2022 4:48 AM CDT [facility] ABS. MONOCYTES 0.42 0.24 - 0.86 x10'3/uL 10/14/2022 4:48 AM CDT [facility] ABS. EOSINOPHILS 0.14 0.04 - 0.36 x10'3/uL 10/14/2022 4:48 AM CDT [facility] ABS. BASOPHILS 0.05 0.01 - 0.08 x10'3/uL 10/14/2022 4:48 AM CDT [facility] ABS. IMMATURE GRANULOCYTES 0.04 0.00 - 0.49 x10'3/uL 10/14/2022 4:48 AM CDT [facility] 10/14/2022 4:34 AM CDT Nanda Cartagena MD LABORATORY Final Res ult [facility] [address] [place] [address], [place] [phone] * (ABNORMAL) POCT glucose (10/13/2022 8:36 PM CDT) [facility] GLUCOSE POC 130(H) 70 - 99 mg/dL 10/13/2022 8:38 PM CDT [facility] 10/13/2022 8:36 PM CDT Holli Murray MD POCT ORDERABLES - DEVICE Fin al Result Performing Organization Address City/[facility] Co de Phone Number [facility] [address] [place] [address], [place] [phone] * (ABNORMAL) POCT glucose (10/13/2022 4:18 PM CDT) GLUCOSE POC 126(H) 70 - 99 mg/dL 10/13/2022 4:21 PM CDT [facility] 10/13/2022 4:18 PM CDT Holli Murray MD POCT ORDERABLES - DEVICE Fin al Result Performing Organization Address [facility] de Phone Number [facility] [address] [place] [address], [place] [phone] * (ABNORMAL) POCT glucose (10/13/2022 11:20 AM CDT) GLUCOSE POC 104(H) 70 - 99 mg/dL 10/13/2022 11:46 AM CDT [facility] 10/13/2022 11:2 0 AM CDT Holli Murray MD POCT ORDERABLES - DEVICE Fin al Result Performing Organization Address City/[facility] Co de Phone Number [facility] [address] [place] [address], [place] [phone] * (ABNORMAL) COMPREHENSIVE METABOLIC PANEL (10/13/2022 5:15 AM CDT) GLUCOSE 156(H) 70 - 99 MG/DL 10/13/2022 5:56 AM CDT [facility] BUN 15 7 - 18 MG/DL 10/13/2022 5:56 AM CDT [facility] CREATININE S/P/B 1.57(H) 0.55 - 1.02 MG/DL 10/13/2022 5:56 AM CDT [facility] SODIUM S/P/B 134(L) 136 - 145 MMOL/L 10/13/2022 5:56 AM CDT [facility] POTASSIUM S/P/B 3.8 3.5 - 5.1 MMOL/L 10/13/2022 5:56 AM CDT [facility] CHLORIDE S/P/B 100 100 - 108 MMOL/L 10/13/2022 5:56 AM CDT [facility] CO2 25.5 21 - 32 MMOL/L 10/13/2022 5:56 AM CDT [facility] CALCIUM S/P/B 8.9 8.5 - 10.1 MG/DL 10/13/2022 5:56 AM CDT [facility] BILIRUBIN TOTAL S/P/B 0.4 0.2 - 1.2 MG/DL 10/13/2022 5:56 AM CDT [facility] Comment: THIS ASSAY IS NOT RECOMMENDED FOR PATIENTS UNDERGOING TREATMENT WITH ELTROMBOPAG DUE TO THE POTENTIAL FOR FALSELY ELEVATED RESULTS. TOTAL PROTEIN S/P/B 8.3(H) 6.4 - 8.2 G/DL 10/13/2022 5:56 AM CDT [facility] ALBUMIN S/P/B 3.2(L) 3.4 - 5.0 G/DL 10/13/2022 5:56 AM CDT [facility] AST 15 15 - 37 U/L 10/13/2022 5:56 AM CDT [facility] ALT 24 14 - 55 U/L 10/13/2022 5:56 AM CDT [facility] ALKALINE PHOSPHATASE S/P/B 124 50 - 136 U/L 10/13/2022 5:56 AM CDT [facility] ANION GAP 8.5 5 - 15 MMOL/L 10/13/2022 5:56 AM CDT [facility] BUN CREATININE RATIO 9.6 6 - 26 10/13/2022 5:56 AM CDT [facility] A/G RATIO 0.6(L) 1.0 - 2.0 RATIO 10/13/2022 5:56 AM CDT [facility] GFR ESTIMATE 40(L) >90 ML/MIN/1.7 3 M2 10/13/2022 5:56 AM CDT [facility] Comment: NOTE: eGFR is not calculated for patients <18 years of age. This is an estimated GFR calculation using the new CKD EPI creatinine equation without race and so does not require a correction factor for race. This estimated GFR should not be used for calculating drug doses. 10/13/2022 5:15 AM CDT June Leonard NP LABORATORY Final Result [facility] [address] [place] [address], * (ABNORMAL) CBC W/DIFF AUTOMATED (10/13/2022 5:15 AM CDT) WBC 11.7(H) 4.5 - 11.0 x10'3/uL 10/13/2022 5:29 AM CDT [facility] RBC 3.85(L) 4.20 - 5.40 x10'6/uL 10/13/2022 5:29 AM CDT [facility] HGB 11.4(L) 12.0 - 16.0 G/DL 10/13/2022 5:29 AM CDT [facility] HCT 34.5(L) 38.0 - 48.0 % 10/13/2022 5:29 AM CDT [facility] MCV 89.6 81.0 - 99.0 FL 10/13/2022 5:29 AM CDT [facility] MCH 29.6 27.0 - 31.0 PG 10/13/2022 5:29 AM CDT [facility] MCHC 33.0 32.0 - 36.0 G/DL 10/13/2022 5:29 AM CDT [facility] RDW 13.1 11.5 - 14.5 % 10/13/2022 5:29 AM CDT [facility] PLT 303 130 - 400 x10'3/uL 10/13/2022 5:29 AM CDT [facility] MPV 11.0 9.3 - 12.2 FL 10/13/2022 5:29 AM CDT [facility] DIFFERENTIAL TYPE AUTOMATED DIFFERENTIAL 10/13/2022 5:29 AM CDT [facility] NEUTROPHILS % 65.4 % 10/13/2022 5:29 AM CDT [facility] LYMPHOCYTES % 28.4 % 10/13/2022 5:29 AM CDT [facility] MONOCYTES % 4.7 % 10/13/2022 5:29 AM CDT [facility] EOSINOPHILS 0.8 % 10/13/2022 5:29 AM CDT [facility] BASOPHILS 0.4 % 10/13/2022 5:29 AM CDT [facility] IMMATURE GRANS % 0.3 % 10/14/19 5:29 AM CDT [facility] ABS. NEUTROPHILS TOTAL 7.62 1.80 - 7.70 x10'3/uL 10/13/2022 5:29 AM CDT [facility] ABS. LYMPHOCYTES 3.31 1.00 - 4.80 x10'3/uL 10/13/2022 5:29 AM CDT [facility] ABS. MONOCYTES 0.55 0.24 - 0.86 x10'3/uL 10/13/2022 5:29 AM CDT [facility] ABS. EOSINOPHILS 0.09 0.04 - 0.36 x10'3/uL 10/13/2022 5:29 AM CDT [facility] ABS. BASOPHILS 0.05 0.01 - 0.08 x10'3/uL 10/13/2022 5:29 AM CDT [facility] ABS. IMMATURE GRANULOCYTES 0.04 0.00 - 0.49 x10'3/uL 10/13/2022 5:29 AM CDT [facility] 10/13/2022 5:15 AM CDT us June Leonard NP LABORATORY Final Result [facility] [address] [place], [place] [address], [place] [phone] * (ABNORMAL) C-REACTIVE PROTEIN (10/13/2022 5:15 AM CDT) C-REACTIVE PROTEIN 4.05(H) <0.29 mg/dL 10/13/2022 5:56 AM CDT [facility] 10/13/2022 5:15 AM CDT us June Leonard NP LABORATORY Final Result [facility] [address] [place] [address], * (ABNORMAL) SED RATE, ERYTHROCYTE (ESR) (10/13/2022 5:15 AM CDT) ESR 74(H) <30 MM/HR 10/13/2022 5:35 AM CDT [facility] Comment:Testing performed on [employer] iSED. 10/13/2022 5:15 AM CDT June Leonard [employer] LABORATORY Final Result [facility] [address] [place] [id number], * (ABNORMAL) POCT glucose (10/12/2022 10:18 PM CDT) GLUCOSE POC 153(H) 70 - 99 mg/dL 10/12/2022 10:20 PM CDT [facility] 10/12/2022 10:1 8 PM CDT Holli Murray MD POCT ORDERABLES - DEVICE Fin al Result [facility] [address] [place] [address], * (ABNORMAL) POCT glucose (10/12/2022 9:19 PM CDT) GLUCOSE POC 58(L) 70 - 99 mg/dL 10/12/2022 9:21 PM CDT [facility] 10/12/2022 9:19 PM CDT Holli Murray MD POCT ORDERABLES - DEVICE Fin al Result Performing Organization Address [facility] Co de Phone Number [facility] [address] [place] [address], [place] [phone] * POCT glucose (10/12/2022 8:30 PM CDT) GLUCOSE POC 77 70 - 99 mg/dL 10/12/2022 8:32 PM CDT [facility] 10/12/2022 8:30 PM CDT Holli Murray MD POCT ORDERABLES - DEVICE Fin al Result Performing Organization Address [facility] Co de Phone Number [facility] [address] [place] [address], [place] [phone] * (ABNORMAL) POCT glucose (10/12/2022 4:48 PM CDT) GLUCOSE POC 144(H) 70 - 99 mg/dL 10/12/2022 4:58 PM CDT [facility] 10/12/2022 4:48 PM CDT Holli Murray MD POCT ORDERABLES - DEVICE Fin al Result Performing Organization Address City/[facility] Co de Phone Number [facility] [address] [place] [address], [place] [phone] * (ABNORMAL) POCT glucose (10/12/2022 11:32 AM CDT) GLUCOSE POC 120(H) 70 - 99 mg/dL 10/12/2022 11:46 AM CDT [facility] 10/12/2022 11:3 2 AM CDT Holli Murray MD POCT ORDERABLES - DEVICE Fin al Result Performing Organization Address City/[facility]/ZIP Co de Phone Number [facility] [address] [place] [address], [place] [phone] * (ABNORMAL) POCT glucose (10/12/2022 5:49 AM CDT) GLUCOSE POC 215(H) 70 - 99 mg/dL 10/12/2022 5:51 AM CDT [facility] 10/12/2022 5:49 AM CDT Holli Murray MD POCT ORDERABLES - DEVICE Fin al Result Performing Organization Address [facility] Co de Phone Number [facility] [address] [place] [address], [place] [phone] * (ABNORMAL) COMPREHENSIVE METABOLIC PANEL (10/12/2022 4:50 AM CDT) GLUCOSE 119(H) 70 - 99 MG/DL 10/12/2022 5:28 AM CDT [facility] BUN 17 7 - 18 MG/DL 10/12/2022 5:28 AM CDT [facility] CREATININE S/P/B 1.03(H) 0.55 - 1.02 MG/DL 10/12/2022 5:28 AM CDT [facility] SODIUM S/P/B 139 136 - 145 MMOL/L 10/12/2022 5:28 AM CDT [facility] POTASSIUM S/P/B 3.6 3.5 - 5.1 MMOL/L 10/12/2022 5:28 AM CDT [facility] CHLORIDE S/P/B 107 100 - 108 MMOL/L 10/12/2022 5:28 AM CDT [facility] CO2 25.6 21 - 32 MMOL/L 10/12/2022 5:28 AM T [facility] CALCIUM S/P/B 9.1 8.5 - 10.1 MG/DL 10/12/2022 5:28 AM CDT [facility] BILIRUBIN TOTAL S/P/B 0.8 0.2 - 1.2 MG/DL 10/12/2022 5:28 AM CDT [facility] Comment: THIS ASSAY IS NOT RECOMMENDED FOR PATIENTS UNDERGOING TREATMENT WITH ELTROMBOPAG DUE TO THE POTENTIAL FOR FALSELY ELEVATED RESULTS. TOTAL PROTEIN S/P/B 8.3(H) 6.4 - 8.2 G/DL 10/12/2022 5:28 AM T [facility] ALBUMIN S/P/B 3.3(L) 3.4 - 5.0 G/DL 10/12/2022 5:28 AM CDT [facility] AST 18 15 - 37 U/L 10/12/2022 5:28 AM T [facility] ALT 23 14 - 55 U/L 10/12/2022 5:28 AM T [facility] ALKALINE PHOSPHATASE S/P/B 123 50 - 136 U/L 10/12/2022 5:28 AM T [facility] ANION GAP 6.4 5 - 15 MMOL/L 10/12/2022 5:28 AM T [facility] BUN CREATININE RATIO 16.5 6 - 26 10/12/2022 5:28 AM T [facility] A/G RATIO 0.7(L) 1.0 - 2.0 RATIO 10/12/2022 5:28 AM T [facility] GFR ESTIMATE 66(L) >90 ML/MIN/1.7 3 M2 10/12/2022 5:28 AM CDT [facility] Comment: NOTE: eGFR is not calculated for patients <18 years of age. This is an estimated GFR calculation using the new CKD EPI creatinine equation without race and so does not require a correction factor for race. This estimated GFR should not be used for calculating drug doses. 10/12/2022 4:50 AM CDT June Leonard NP LABORATORY Final Result [facility] [address] [place] [address], [place] [phone] * (ABNORMAL) CBC W/DIFF AUTOMATED (10/12/2022 4:50 AM CDT) WBC 12.5(H) 4.5 - 11.0 x10'3/uL 10/12/2022 5:05 AM CDT [facility] RBC 3.94(L) 4.20 - 5.40 x10'6/uL 10/12/2022 5:05 AM CDT [facility] HGB 11.8(L) 12.0 - 16.0 G/DL 10/12/2022 5:05 AM CDT [facility] HCT 35.3(L) 38.0 - 48.0 % 10/12/2022 5:05 AM CDT [facility] MCV 89.6 81.0 - 99.0 FL 10/12/2022 5:05 AM CDT [facility] MCH 29.9 27.0 - 31.0 PG 10/12/2022 5:05 AM CDT [facility] MCHC 33.4 32.0 - 36.0 G/DL 10/12/2022 5:05 AM CDT [facility] RDW 13.2 11.5 - 14.5 % 10/12/2022 5:05 AM CDT [facility] PLT 286 130 - 400 x10'3/uL 10/12/2022 5:05 AM T [facility] MPV 11.4 9.3 - 12.2 FL 10/12/2022 5:05 AM CDT [facility] DIFFERENTIAL TYPE AUTOMATED DIFFERENTIAL 10/12/2022 5:05 AM CDT [facility] NEUTROPHILS % 65.1 % 10/12/2022 5:05 AM CDT [facility] LYMPHOCYTES % 29.1 % 10/12/2022 5:05 AM CDT [facility] MONOCYTES % 4.6 % 10/12/2022 5:05 AM T [facility] EOSINOPHILS 0.7 % 10/12/2022 5:05 AM CDT [facility] BASOPHILS 0.3 % 10/12/2022 5:05 AM CDT [facility] IMMATURE GRANS % 0.2 % 10/13/19 5:05 AM CDT [facility] ABS. NEUTROPHILS TOTAL 8.15(H) 1.80 - 7.70 x10'3/uL 10/12/2022 5:05 AM CDT [facility] ABS. LYMPHOCYTES 3.65 1.00 - 4.80 x10'3/uL 10/12/2022 5:05 AM CDT [facility] ABS. MONOCYTES 0.58 0.24 - 0.86 x10'3/uL 10/12/2022 5:05 AM CDT [facility] ABS. EOSINOPHILS 0.09 0.04 - 0.36 x10'3/uL 10/12/2022 5:05 AM CDT [facility] ABS. BASOPHILS 0.04 0.01 - 0.08 x10'3/uL 10/12/2022 5:05 AM CDT [facility] ABS. IMMATURE GRANULOCYTES 0.03 0.00 - 0.49 x10'3/uL 10/12/2022 5:05 AM CDT [facility] 10/12/2022 4:50 AM CDT June Leonard SPORTS BOOK SERVER LABORATORY Final Result [facility] [address] [place] [address], * CULTURE, BACTERIA, BLOOD (10/12/2022 1:04 AM CDT) SPEC DESCRIPTION BLOOD 10/11/2022 9:43 PM CDT [facility] SPECIAL REQUESTS NO SPECIAL REQUEST 10/11/2022 9:43 PM CDT [facility] CULTURE RESULT NO GROWTH 5 DAYS 10/31/2022 8:43 AM CDT [facility] BLOOD SPECIMEN OBTAINED FOR BLOOD CULTURE / Unknown 10/12/2022 1:04 AM CDT 10/12/2022 1:11 AM CDT Lisseth Langston APRN MICROBIOLOGY - GENERAL ORDE RABLES Final Result [facility] [address] [place] [address], [place] [phone] * (ABNORMAL) POCT glucose (10/11/2022 10:43 PM CDT) GLUCOSE POC 138(H) 70 - 99 mg/dL 10/11/2022 10:52 PM CDT [facility] 10/11/2022 10:4 3 PM CDT us Janelle Pimentel DO POCT ORDERABLES - DEVICE Fin al Result [facility] [address] [place] [address], [place] [phone] * XR CHEST PORTABLE (10/11/2022 10:15 PM [...] John Campos, 10/11/2022 10:19 PM Lisseth Langston E LEARNING MANAGER GENERAL IMAGING Final Resul t * (ABNORMAL) C-REACTIVE PROTEIN (10/11/2022 9:43 PM CDT) C-REACTIVE PROTEIN 2.22(H) <0.29 mg/dL 10/11/2022 10:11 PM CDT [facility] 10/11/2022 9:43 PM CDT us Lisseth Langston E LEARNING MANAGER LABORATORY Final Resul t [facility] [address] [facility] [place] [address], [place] [phone] * CT ABD+PEL W IV CON ONLY [...] 52(H) <30 MM/HR 10/11/2022 10:06 PM CDT [facility] Comment:Testing performed on [employer] iSED. 10/11/2022 6:26 PM CDT Lisseth Langston E LEARNING MANAGER LABORATORY Final Resul t [facility] [address] [place] [address], [place] [phone] * (ABNORMAL) CBC W/DIFF AUTOMATED (10/11/2022 6:00 PM CDT) WBC 14.7(H) 4.5 - 11.0 x10'3/uL 10/11/2022 6:18 PM CDT [facility] RBC 4.09(L) 4.20 - 5.40 x10'6/uL 10/11/2022 6:18 PM CDT [facility] HGB 12.3 12.0 - 16.0 G/DL 10/11/2022 6:18 PM CDT [facility] HCT 36.5(L) 38.0 - 48.0 % 10/11/2022 6:18 PM CDT [facility] MCV 89.2 81.0 - 99.0 FL 10/11/2022 6:18 PM CDT [facility] MCH 30.1 27.0 - 31.0 PG 10/11/2022 6:18 PM CDT [facility] MCHC 33.7 32.0 - 36.0 G/DL 10/11/2022 6:18 PM CDT [facility] RDW 13.1 11.5 - 14.5 % 10/11/2022 6:18 PM CDT [facility] PLT 300 130 - 400 x10'3/uL 10/11/2022 6:18 PM CDT [facility] MPV 11.4 9.3 - 12.2 FL 10/11/2022 6:18 PM CDT [facility] DIFFERENTIAL TYPE AUTOMATED DIFFERENTIAL 10/11/2022 6:18 PM CDT [facility] NEUTROPHILS % 82.2 % 10/11/2022 6:18 PM CDT [facility] LYMPHOCYTES % 13.0 % 10/11/2022 6:18 PM CDT [facility] MONOCYTES % 3.9 % 10/11/2022 6:18 PM CDT [facility] EOSINOPHILS 0.3 % 10/11/2022 6:18 PM CDT [facility] BASOPHILS 0.2 % 10/11/2022 6:18 PM CDT [facility] IMMATURE GRANS % 0.4 % 10/12/19 6:18 PM CDT [facility] ABS. NEUTROPHILS TOTAL 12.09(H) 1.80 - 7.70 x10'3/uL 10/11/2022 6:18 PM CDT [facility] ABS. LYMPHOCYTES 1.91 1.00 - 4.80 x10'3/uL 10/11/2022 6:18 PM CDT [facility] ABS. MONOCYTES 0.57 0.24 - 0.86 x10'3/uL 10/11/2022 6:18 PM CDT [facility] ABS. EOSINOPHILS 0.05 0.04 - 0.36 x10'3/uL 10/11/2022 6:18 PM CDT [facility] ABS. BASOPHILS 0.03 0.01 - 0.08 x10'3/uL 10/11/2022 6:18 PM CDT [facility] ABS. IMMATURE GRANULOCYTES 0.06 0.00 - 0.49 x10'3/uL 10/11/2022 6:18 PM CDT [facility] 10/11/2022 6:00 PM CDT Carroll MARIE LABORATORY Final Resul t Performing Organization Address City/[facility] Co de Phone Number [facility] [address] [place] [address], * TROPONIN, QUANT (10/11/2022 5:40 PM CDT) TROPONIN I HIGH SENSITIVITY 6 <54 ng/L 10/11/2022 6:28 PM CDT [facility] Comment: HIGH DOSES OF BIOTIN, TROPONIN-SPECIFIC AUTOANTIBODIES, AND ANTIBODY THERAPY CONTAINING HAMA MAY INTERFERE WITH THIS TEST RESULT. CORRELATION TO CLINICAL HISTORY AND PRESENTATION RECOMMENDED. 10/11/2022 5:40 PM CDT Tre MARIE LABORATORY Final Resu lt Performing Organization Address City/[facility]/ZIP Co de Phone Number [facility] [address] [place] [address], [place] [phone] * LIPASE (10/11/2022 5:40 PM CDT) LIPASE 34 13 - 75 UNITS/L 10/11/2022 6:28 PM CDT [facility] 10/11/2022 5:40 PM CDT Tre MARIE LABORATORY Final Resu lt Performing Organization Address City/[facility]/ZIP Co de Phone Number [facility] [address] [place] [address], [place] [phone] * (ABNORMAL) COMPREHENSIVE METABOLIC PANEL (10/11/2022 5:40 PM CDT) [facility] GLUCOSE 161(H) 70 - 99 MG/DL 10/11/2022 6:28 PM CDT [facility] BUN 20(H) 7 - 18 MG/DL 10/11/2022 6:28 PM CDT [facility] CREATININE S/P/B 1.04(H) 0.55 - 1.02 MG/DL 10/11/2022 6:28 PM CDT [facility] SODIUM S/P/B 139 136 - 145 MMOL/L 10/11/2022 6:28 PM CDT [facility] POTASSIUM S/P/B 4.2 3.5 - 5.1 MMOL/L 10/11/2022 6:28 PM CDT [facility] Comment:SLIGHT HEMOLYSIS, RE SULT MAY BE AFFECTED. CHLORIDE S/P/B 105 100 - 108 MMOL/L 10/11/2022 6:28 PM CDT [facility] CO2 25.4 21 - 32 MMOL/L 10/11/2022 6:28 PM CDT [facility] CALCIUM S/P/B 9.9 8.5 - 10.1 MG/DL 10/11/2022 6:28 PM CDT [facility] BILIRUBIN TOTAL S/P/B 0.7 0.2 - 1.2 MG/DL 10/11/2022 6:28 PM CDT [facility] Comment: THIS ASSAY IS NOT RECOMMENDED FOR PATIENTS UNDERGOING TREATMENT WITH ELTROMBOPAG DUE TO THE POTENTIAL FOR FALSELY ELEVATED RESULTS. TOTAL PROTEIN S/P/B 9.4(H) 6.4 - 8.2 G/DL 10/11/2022 6:28 PM CDT [facility] ALBUMIN S/P/B 3.7 3.4 - 5.0 G/DL 10/11/2022 6:28 PM CDT [facility] AST 28 15 - 37 U/L 10/11/2022 6:28 PM CDT [facility] Comment:SLIGHT HEMOLYSIS, RE SULT MAY BE AFFECTED. ALT 28 14 - 55 U/L 10/11/2022 6:28 PM CDT [facility] ALKALINE PHOSPHATASE S/P/B 145(H) 50 - 136 U/L 10/11/2022 6:28 PM CDT [facility] ANION GAP 8.6 5 - 15 MMOL/L 10/11/2022 6:28 PM CDT [facility] BUN CREATININE RATIO 19.2 6 - 26 10/11/2022 6:28 PM CDT [facility] A/G RATIO 0.6(L) 1.0 - 2.0 RATIO 10/11/2022 6:28 PM CDT [facility] GFR ESTIMATE 65(L) >90 ML/MIN/1.7 3 M2 10/11/2022 6:28 PM CDT [facility] Comment: NOTE: eGFR is not calculated for patients <18 years of age. This is an estimated GFR calculation using the new CKD EPI creatinine equation without race and so does not require a correction factor for race. This estimated GFR should not be used for calculating drug doses. 10/11/2022 5:40 PM CDT Tre MARIE LABORATORY Final Resu lt [facility] [address] [place] [address], [place] [phone] * CULTURE URINE (10/11/2022 4:08 PM CDT) SPEC DESCRIPTION URINE CLEAN CATCH 10/11/2022 4:42 PM CDT [facility] SPECIAL REQUESTS NO SPECIAL REQUEST 10/11/2022 4:42 PM CDT [facility] CULTURE RESULT POLYMICROBIAL GROWTH CONSISTENT WITH NORMAL GENITAL AIDEN. ?? SUSCEPTIBILITIES NOT ROUTINELY PERFORMED. 10/13/2022 8:26 AM CDT [facility] URINE SPECIMEN OBTAINED BY CLEAN CATCH PROCEDURE / Unknown 10/11/2022 4:08 PM CDT 10/11/2022 4:41 PM CDT Tre MARIE MICROBIOLOGY - GENERAL ORD ERABLES Final Result [facility] [address] [place] [address], * (ABNORMAL) URINALYSIS (10/11/2022 4:08 PM CDT) SPECIMEN TYPE URINE CLEAN CATCH 10/11/2022 4:09 PM CDT [facility] COLOR (U) LIGHT YELLOW 10/11/2022 4:32 PM CDT [facility] TRANSPARENCY CLEAR 10/11/2022 4:32 PM CDT [facility] SPECIFIC GRAVITY (U) 1.013 1.001 - 1.030 10/11/2022 4:32 PM CDT [facility] U PH 5.5 5.0 - 9.0 10/11/2022 4:32 PM CDT [facility] LEUKOCYTES (U) NEGATIVE NEGATIVE 10/11/2022 4:32 PM CDT [facility] NITRITES NEGATIVE NEGATIVE 10/11/2022 4:32 PM CDT [facility] PROTEIN RANDOM (U) 200(H) <30 MG/DL 10/11/2022 4:32 PM CDT [facility] GLUCOSE (U) 30(A) NORMAL MG/DL 10/11/2022 4:32 PM CDT [facility] KETONES MG/DL (U) NEGATIVE NEGATIVE MG/DL 10/11/2022 4:32 PM CDT [facility] UROBILINOGEN NORMAL NORMAL MG/DL 10/11/2022 4:32 PM CDT [facility] BILIRUBIN (U) NEGATIVE NEGATIVE MG/DL 10/11/2022 4:32 PM CDT [facility] BLOOD (U) NEGATIVE NEGATIVE 10/11/2022 4:32 PM CDT [facility] CULTURE & SENSITIVITY INDICATED? SPECIMEN SETUP FOR CULTURE 10/11/2022 4:32 PM CDT [facility] MUCUS RARE /LPF 10/11/2022 4:32 PM CDT [facility] WBC/HPF 8(H) <6 /HPF 10/11/2022 4:32 PM CDT [facility] RBC/HPF 2 <6 /HPF 10/11/2022 4:32 PM CDT [facility] BACTERIA (U) FEW(A) NONE /HPF 10/11/2022 4:32 PM CDT [facility] SQUAMOUS EPITHELIALS FEW /HPF 10/11/2022 4:32 PM CDT [facility] URINE SPECIMEN OBTAINED BY CLEAN CATCH PROCEDURE / Unknown 10/11/2022 4:08 PM CDT us Tre MARIE URINE ORDERABLES Final Res ult [facility] [address] [place], [place] [address] [phone] * ECG 12 lead (10/11/2022 3:39 PM CDT) 10/11/2022 3:39 PM CDT Narrative [facility] ([facility]) [facility] - 10/11/2022 11:28 PM CDT ?[facility] ? [address] [place] ? Test Date: ?2022-10-11 Pat Name: ? LENA YOUNGBLOOD ?Department: ?? 41 ? Room: ? A329 Gender: ? Female ? Bioinformatics Associate: ?? [id number] : ?1970 ? Requested By: TRE CHUNG Order Number: [id number] ? Reading MD: ?? Pabely Janes ? Measurements Intervals ?[place] ? Rate: ? 98 ? P: ?46 MI: ? 167 ?QRS: ?17 QRSD: ? 77 ? T: ?23 QT: ? 329 ? QTc: ?422 ? Interpretive Statements SINUS RHYTHM WITH OCCASIONAL VENTRICULAR PREMATURE COMPLEXES NONSPECIFIC T-WAVE ABNORMALITY Compared to ECG 09/29/2022 20:57:16 No significant changes Preliminary EKG interpretation by ED Physician Procedure Note Leonel Marrero MD - 10/11/[address] [facility] Test Date: 2022-10-11 Pat Name: LENA YOUNGBLOOD Department: 41 Room: A329 Gender: Female Bioinformatics Associate: [id number] : 1970 Requested By: TRE CHUNG Order Number: [id number] Reading MD: Leonel Marrero Measurements Intervals [place] Rate: 98 P: 46 MI: 167 QRS: 17 QRSD: 77 T: 23 [...] PM Therapeutic interchange for Humalog 75/25 per [facility] protocol Given 10/14/2022 8:06 AM CDT 28 [...] PM Therapeutic interchange for Humalog 75/25 per [facility] protocol Given 10/14/2022 5:15 PM CDT 33 [...] Depression Total Score: 0 03/08/19 9:30 AM JET OPERATOR documented as of this encounter Care Teams Director Of Event Sales Relationship Specialty Start Date End Date Abiodun Segura II, MD [address] [place] [address] PCP - General FAMILY PRACTICE 03/09/21 [place] [address] [place] [address] PODIATRY/SURGERY 05/05/22 documented as of this encounter
--- OUTSIDE RECORDS SUMMARY | 2024-03-03 01:21 | XMS_ITS | Encounter Summary ---
Author Organization [facility] Address [address] [place] [address]. [place], [place] [address] [place] [address] Care Team Providers Care Certified Histologic Technician Name Role Phone Colton SILVEIRA MD, Abiodun Rushing Primary Care Provider Victoriano Langston MD Unavailable [phone] Encounter Details Date Type Department Care Team [...] Recorded In the past 12 months has [facility] [place] [employer], gas, oil, or water [employer] threatened to shut off services in your [...] or making decisions? No 03/06/2023 3:39 PM MUSEUM TOUR GUIDE Teresa Amaya RN Active * Because of a physical, mental, or emotional condition, do you have serious difficulty concentrating, remembering, or making decisions? Answer Entry Date Author Status No 10/11/2022 11:33 PM CDT Amanda Qureshi RN Active documented in this encounter Plan of Treatment Upcoming Encounters Date Type Department Care Team (Late st Contact Info) Description 03/14/2024 11:45 AM MUSEUM TOUR GUIDE Office Visit [facility] [place] [facility] [phone] Marvin Mckeon MD Three [facility] [address] [place] [phone] 03/20/2024 11:30 AM MUSEUM TOUR GUIDE Office Visit [facility] Family Medicine - [place] [address] [place] [phone] Abiodun Segura II, MD [address] [place], [place] [phone] documented as of this encounter Goals Goal Patient Goal Type Associated Problems Recent Progress Patient-Stated? Author Family - family caregiver with be involved in care transitions and discharge planning Lifestyle No Natty Cheek RN documented as of this encounter Visit Diagnoses Not on filedocumented in this encounter Additional Health Concerns Assessment Noted Time PHQ-9 Depression Total Score: 0 03/08/19 9:30 AM MUSEUM TOUR GUIDE documented as of this encounter Care Teams Certified Histologic Technician Relationship Specialty Start Date End Date Abiodun Segura II, MD [address] [place] [address] PCP - General FAMILY PRACTICE 03/09/21 [place] [address] [place] [address] PODIATRY/SURGERY 05/05/22 documented as of this encounter
--- OUTSIDE RECORDS SUMMARY | 2024-03-03 01:21 | XMS_ITS | Encounter Summary ---
Author Organization [facility] Address [address] [place] [address]. [place] [address] [place] [address] Care Team Providers Care Information Services Vice President Name Role Phone Colton SILVEIRA MD, Abiodun Rushing Primary Care Provider Victoriano Langston MD Unavailable [phone] Encounter Details Date Type Department Care Team [...] Recorded Patient Health Questionnaire-2 Score 0 05/05/2022 [facility] of Occupat ional Health - Occupational Stress [...] slept in a long-term (including now)? No 09/03/2022 Comments No Sex [...] or bathing? No 10/11/2022 11:33 PM Amanda Balletseros RN Active Because of a physical, mental, [...] Contact Info) Description 03/14/2024 11:45 AM AUTO CLEANER Office Visit [facility] [phone] Marvin Mckeon MD Three [facility] [address] [place], [place] [phone] 03/20/2024 11:30 AM AUTO CLEANER Office Visit [facility] Family [facility] - [place] [address] [place] [phone] Abiodun Segura II, MD [address] [place], [place] [phone] documented as of this encounter Goals Goal Patient Goal Type Associated Problems Recent Progress Patient-Stated? Author Family - family caregiver with be involved in care transitions and discharge planning Lifestyle No Natty Cheek, RN documented as of this encounter Visit Diagnoses Not on filedocumented in this encounter Additional Health Concerns Assessment Noted Time PHQ-9 Depression Total Score: 0 03/08/19 22 9:30 AM AUTO CLEANER documented as of this encounter Care Teams Information Services Vice President Relationship Specialty Start Date End Date Abiodun Segura II, MD [address] [place] [address] PCP - General FAMILY PRACTICE 03/09/21 [place] [address] [place] [address] PODIATRY/SURGERY 05/05/22 documented as of this encounter
--- OUTSIDE RECORDS SUMMARY | 2024-03-03 01:21 | XMS_ITS | Encounter Summary ---
Author Organization [facility] Address [address] [place] [address]. [place] [address] [place] [address] Care Team Providers Care Cartography Supervisor Name Role Phone Colton SILVEIRA MD, Abiodun Rushing Primary Care Provider Victoriano Langston MD Unavailable [phone] Encounter Details Date Type Department Care Team [...] Recorded Patient Health Questionnaire-2 Score 0 05/05/2022 [facility]at ional Health [...] slept in a usp (including now)? No 09/03/2022 Comments No Sex [...] st Contact Info) Description 03/14/2024 11:45 AM TIER AND DETONATOR Office Visit [facility] [phone] Marvin Mckeon MD Three [facility] [address] [place] [address] 03/20/2024 11:30 AM TIER AND DETONATOR Office Visit [facility] Family Medicine - [place] [address] [place] [phone] Abiodun Segura II, MD [address] [place] [address] documented as of this encounter Goals Goal Patient Goal Type Associated Problems Recent Progress Patient-Stated? Author Family - family caregiver with be involved in care transitions and discharge planning Lifestyle No Natty Cheek, RN documented as of this encounter Visit Diagnoses Not on filedocumented in this encounter Additional Health Concerns Assessment Noted Time PHQ-9 Depression Total Score: 0 03/08/19 22 9:30 AM TIER AND DETONATOR documented as of this encounter Care Teams Cartography Supervisor Relationship Specialty Start Date End Date Abiodun Segura II, MD [address] [place] [address] PCP - General FAMILY PRACTICE 03/09/21 [place] [address] [place] [address] PODIATRY/SURGERY 05/05/22 documented as of this encounter
--- OUTSIDE RECORDS SUMMARY | 2024-03-03 01:21 | XMS_ITS | Encounter Summary ---
Author Organization [facility] Address [address] [place] [address]. [place] [address] [place] [address] Care Team Providers Care Systems Technologist Name Role Phone Colton SILVEIRA MD, Abiodun Rushing Primary Care Provider Victoriano Langston MD Unavailable [phone] Encounter Details Date Type Department Care Team (Latest Contact Info) Description 10/16/2022 10:32 AM CDT - 10/16/2022 11:59 PM T Hospital Encounter [facility] [place] [address] Karlo Saldivar MD [address] [phone] Discharge Disposition: Home or Self Care (Routine [...] Recorded Patient Health Questionnaire-2 Score 0 05/05/2022 [facility] Occupat ional Health - [...] may be found under the media tab. HERS' AIDE * Karlo Saldivar MD - 10/16/2022 10:32 AM CDT Your stomach ulcer biopsies were benign. Please call the office to schedule a repeat EGD soon to make sure this ulcer is healing. documented in this encounter Plan of Treatment Upcoming Encounters Date Type Department Care Team (Late st Contact Info) Description 03/14/2024 11:45 AM TEACHERS' AIDE Office Visit [facility] [phone] Marvin Mckeon MD Three [facility] [address] [place] [address] 03/20/2024 11:30 AM TEACHERS' AIDE Office Visit [facility] Family Medicine - [place] [address] [place] [phone] Abidoun Segura II, MD [address] [place] [address] documented as of this encounter [...] Pathology (10/16/2022 12:00 AM CDT) COPATH REPORT ?[facility] ? [address] [facility]. ? [place], [place] [address] ? [id number] ? Department of Pathology ? Pathology Report ? SURGICAL FINAL REPORT Patient Name: LENA YOUNGBLOOD ? : 1970 (Age: 52) ? Location: [facility] Gender: F ?Collected Date: 10/16/2022 Med Rec #: [id number] ?Date Received: 12/14/2022 Date Reported: 12/15/2022 Provider: KARLO SALDIVAR MD Specimen(s) Gastric, Biopsy R/O h.pylori Final Pathologic Diagnosis STOMACH ULCER; BIOPSY: -GASTRIC MUCOSA WITH ULCER -H PYLORI IMMUNOSTAIN IS NEGATIVE Electronically Signed Out ? BESSIE LANDIN MD Pathologist [facility] Microscopic Description: Microscopic examination is performed, and the findings support the final diagnosis. The Immunohistochemical (IHC) stain controls perform as expected. These tests were developed and the performance characteristics determined by: [place], [place]; [place], [place]; [employer] [place], [place]: and/or [employer] [place], [place]. They have not been cleared [...] gastric biopsy. The specimen consists of two pink-mohan fragments of tissue measuring 0.5 cm in greatest dimension. The specimen is submitted in 1 cassette. :[facility] Billing Fee Code(s): [id number], [id number] [facility] 10/16/2022 12/14/2022 8:5 4 AM CDT Comment:Gastric, Biopsy R/O h.pylori us Karlo Saldivar MD PATHOLOGY/CYTOLOGY ORDERABLES Fi nal Result [facility] [address] [place] [address], documented in this encounter Visit Diagnoses Not on filedocumented in this encounter Additional Health Concerns Assessment Noted Time PHQ-9 Depression Total Score: 0 03/08/19 22 9:30 AM TEACHERS' AIDE documented as of this encounter Care Teams Systems Technologist Relationship Specialty Start Date End Date Abiodun Segura II, MD [address] [place] [address] PCP - General FAMILY PRACTICE 03/09/21 [place] [address] [place] [address] PODIATRY/SURGERY 05/05/22 documented as of this encounter
--- OUTSIDE RECORDS SUMMARY | 2024-03-03 01:21 | XMS_ITS | Encounter Summary ---
Author Organization [facility] Address [address] [place] [address]. [place] [address] [place] [address] Care Team Providers Care Hospice Case Manager Name Role Phone Colton SILVEIRA MD, Abiodun Rushing Primary Care Provider Victoriano Langston MD Unavailable [phone] Reason for Referral * Imaging (Emergency) - Closed Specialty Diagnoses / Procedures Referred By Lyla chaney Referred To Contact RADIOLOGY Procedures CTA CHEST PE PROTOCOL Americo Elder MD,PHD [address] [place] [address] Phone: tel: fax: Referral ID Status Reason Start Date Expiration Date Visits Re quested Visits Authorized [id number] Closed 09/29/2022 09/30/2023 1 1 Reason for Visit * Reason Comments Dizziness Shortness Of Breath Encounter Details Date Type Department Care Team (Late st Contact Info) Description 09/29/2022 7:12 PM CDT - 09/29/2022 10:31 PM CDT [facility] [place] [address] Americo Elder MD,PHD [address] [place] [id number] Dizziness; Shortness Of Breath Discharge Disposition: [...] Questionnaire-2 Score 0 05/05/2022 [facility] [...] slept in a correction (including now)? No 09/03/2022 Comments No Sex [...] Care Everywhere. * Dehydration Discharge Instructions, Adult ([place]) documented in this encounter Medications at [...] concordance with the consensus statements from the [employer] [place] [employer]ology and National kidney foundation, contrast shall not be withheld in this patient in which a potentially disabling or life-threatening condition needs to be diagnosed without an immediately obtainable and reasonable alternative to rule out this diagnosis. The patient will be given intravenous fluids [email or web address] Americo Elder MD,PHD 09/29/222104 * Americo Elder [...] CHEST PE PROTOCOL Final Result by User, [id number] (09/29 2105) Examination: CT angiography of the [...] XR CHEST PORTABLE Final Result by User, [id number] (09/29 1928) Examination: Chest 1 view portable [...] is not hypoxic I interpreted the patient's gambling monitor as showing a sinus rhythm and hemodynamic [...] CYNTHIA Babb - 09/29/2022 6:44 PM CDT [place], [place] EMERGENCY DEPARTMENT ENCOUNTER Medical Screening Examination [...] Contact Info) Description 03/14/2024 11:45 AM SALES REP Office Visit [facility] [phone] [facility] [address] [place] [address] 03/20/2024 11:30 AM SALES REP Office Visit [facility] - [place] [address] [place] [phone] Abiodun Segura II, MD [address] [place] [address] documented as of this encounter Goals Goal [...] 6 <54 ng/L 09/29/2022 9:35 PM CDT [facility] Comment: HIGH DOSES OF BIOTIN, TROPONIN-SPECIFIC AUTOANTIBODIES, AND ANTIBODY THERAPY CONTAINING HAMA MAY INTERFERE WITH THIS TEST RESULT. CORRELATION TO CLINICAL HISTORY AND PRESENTATION RECOMMENDED. 09/29/2022 8:59 PM CDT us Janneth [facility] Final Result [facility] [address] [place] [address], * ECG 12 lead (09/29/2022 8:57 PM CDT) 09/29/2022 8:57 PM CDT Narrative [facility] (ABENA) RAD - 09/29/2022 10:00 PM CDT ?[facility] ? [address] [facility] ? Test Date: ?2022-09-29 Pat Name: ? LENA FORD ?Department: ?? 41 ? Room: ? EXAM21 Gender: ? Female ? Director Business Travel: ?? [id number] : ?1970 ? Requested By: JANNETH SMITH Order Number: [id number] ? Reading : ?? Reynaldo Leonardo ? Measurements Intervals ?[place] ? Rate: ? 83 ? P: ?57 NE: ? 186 ?QRS: ?24 QRSD: ? 87 ? T: ?33 QT: ? 299 ? QTc: ?352 ? Interpretive Statements SINUS RHYTHM WITH OCCASIONAL VENTRICULAR PREMATURE COMPLEXES NONSPECIFIC T-WAVE ABNORMALITY Compared to ECG 09/24/2022 05:42:29 Ventricular premature complex(es) now present T-wave abnormality now present Procedure Note Reynaldo Leonardo MD - 09/29/[address] Test Date: 2022-09-29 Pat Name: LENA YOUNGBLOOD Department: 41 Room: [facility] Gender: Female Director Business Travel: [id number] : 1970 Requested By: JANNETH SMITH Order Number: [id number] Reading MD: Reynaldo Leonardo Measurements Intervals [place] Rate: 83 P: 57 NE: 186 QRS: 24 QRSD: 87 T: 33 QT: 299 QTc: 352 Interpretive Statements SINUS RHYTHM WITH OCCASIONAL VENTRICULAR PREMATURE COMPLEXES NONSPECIFIC T-WAVE ABNORMALITY Compared to ECG 09/24/2022 05:42:29 Ventricular premature complex(es) now present T-wave abnormality now present us Janneth Smith PA ECG ORDERABLES Final Result [facility] RAD * CTA CHEST PE PROTOCOL (09/29/2022 [...] - 3.74 uIU/ML 09/29/2022 9:20 PM CDT [facility] Comment: HIGH DOSES OF BIOTIN MAY INTERFERE WITH THIS TEST RESULT. CORRELATION TO CLINICAL HISTORY AND PRESENTATION RECOMMENDED. 09/29/2022 7:25 PM CDT [facility] Final Result Performing Organization Address City/[facility]/ZIP Co de Phone Number [facility] [address] [place] [address], [place] [phone] * THYROXINE, FREE (FT4) (09/29/2022 7:25 PM CDT) FREE T4 0.95 0.76 - 1.46 NG/DL 09/29/2022 9:20 PM CDT [facility] 09/29/2022 7:25 PM CDT Jann[facility] Final Result Performing Organization Address City/[facility]/ZIP Co de Phone Number [facility] [address] [place] [address], [place] [phone] * PHOSPHORUS, INORGANIC PHOSPHATE (09/29/2022 7:25 PM CDT) PHOSPHORUS 4.0 2.5 - 4.9 MG/DL 09/29/2022 9:20 PM CDT [facility] 09/29/2022 7:25 PM CDT J[facility] Final Result [facility] [address] [place] [address], [place] [phone] * PRO-BRAIN NATRIURETIC PEPTIDE (09/29/2022 7:25 PM CDT) PRO-B TYPE NATRIURETIC PEPTIDE 5 <125 PG/ML 09/29/2022 9:20 PM CDT [facility] Comment: CUT POINTS ESTABLISHED BY INTERNATIONAL [...] [facility] Final Result Performing Organization Address City/[facility]/ZIP Co de Phone Number [facility] [address] [place] [address], [place] [phone] * MAGNESIUM (09/29/2022 7:25 PM CDT) MAGNESIUM 2.3 1.8 - 2.4 MG/DL 09/29/2022 9:20 PM CDT [facility] 09/29/2022 7:25 PM CDT Jannethjohn Smith PA LABORATORY Final Result [facility] [address] [place] [address], [place] [phone] * TROPONIN, QUANT (09/29/2022 7:25 PM CDT) TROPONIN I HIGH SENSITIVITY 6 <54 ng/L 09/29/2022 8:01 PM CDT [facility] Comment: HIGH DOSES OF BIOTIN, TROPONIN-SPECIFIC AUTOANTIBODIES, AND ANTIBODY THERAPY CONTAINING HAMA MAY INTERFERE WITH THIS TEST RESULT. CORRELATION TO CLINICAL HISTORY AND PRESENTATION RECOMMENDED. 09/29/2022 7:25 PM CDT us Janneth [facility] Final Result [facility] [address] [place] [address], * (ABNORMAL) COMPREHENSIVE METABOLIC PANEL (09/29/2022 7:25 PM CDT) Pathologist [facility] GLUCOSE 154(H) 70 - 99 MG/DL 09/29/2022 8:01 PM CDT [facility] BUN 29(H) 7 - 18 MG/DL 09/29/2022 8:01 PM CDT [facility] CREATININE S/P/B 1.78(H) 0.55 - 1.02 MG/DL 09/29/2022 8:01 PM CDT [facility] SODIUM S/P/B 136 136 - 145 MMOL/L 09/29/2022 8:01 PM CDT [facility] POTASSIUM S/P/B 3.8 3.5 - 5.1 MMOL/L 09/29/2022 8:01 PM CDT [facility] CHLORIDE S/P/B 103 100 - 108 MMOL/L 09/29/2022 8:01 PM CDT [facility] CO2 27.0 21 - 32 MMOL/L 09/29/2022 8:01 PM CDT [facility] CALCIUM S/P/B 9.9 8.5 - 10.1 MG/DL 09/29/2022 8:01 PM [facility] BILIRUBIN TOTAL S/P/B 0.3 0.2 - 1.2 MG/DL 09/29/2022 8:01 PM [facility] Comment: THIS ASSAY IS NOT RECOMMENDED FOR PATIENTS UNDERGOING TREATMENT WITH ELTROMBOPAG DUE TO THE POTENTIAL FOR FALSELY ELEVATED RESULTS. TOTAL PROTEIN S/P/B 9.4(H) 6.4 - 8.2 G/DL 09/29/2022 8:01 PM [facility] ALBUMIN S/P/B 3.9 3.4 - 5.0 G/DL 09/29/2022 8:01 PM [facility] AST 13(L) 15 - 37 U/L 09/29/2022 8:01 PM [facility] ALT 26 14 - 55 U/L 09/29/2022 8:01 PM [facility] ALKALINE PHOSPHATASE S/P/B 152(H) 50 - 136 U/L 09/29/2022 8:01 PM [facility] ANION GAP 6.0 5 - 15 MMOL/L 09/29/2022 8:01 PM [facility] BUN CREATININE RATIO 16.3 6 - 26 09/29/2022 8:01 PM [facility] A/G RATIO 0.7(L) 1.0 - 2.0 RATIO 09/29/2022 8:01 PM [facility] GFR ESTIMATE 34(L) >90 ML/MIN/1.7 3 M2 09/29/2022 8:01 PM [facility] Comment: NOTE: eGFR is not calculated for patients <18 years of age. This is an estimated GFR calculation using the new CKD EPI creatinine equation without race and so does not require a correction factor for race. This estimated GFR should not be used for calculating drug doses. 09/29/2022 7:25 PM CDT J[facility] Final Result [facility] [address] [place] [address], * (ABNORMAL) CBC W/DIFF AUTOMATED (09/29/2022 7:25 PM CDT) WBC 11.3(H) 4.5 - 11.0 x10'3/uL 09/29/2022 7:36 PM CDT [facility] RBC 4.46 4.20 - 5.40 x10'6/uL 09/29/2022 7:36 PM CDT [facility] HGB 13.3 12.0 - 16.0 G/DL 09/29/2022 7:36 PM CDT [facility] HCT 40.7 38.0 - 48.0 % 09/29/2022 7:36 PM CDT [facility] MCV 91.3 81.0 - 99.0 FL 09/29/2022 7:36 PM CDT [facility] MCH 29.8 27.0 - 31.0 PG 09/29/2022 7:36 PM CDT [facility] MCHC 32.7 32.0 - 36.0 G/DL 09/29/2022 7:36 PM CDT [facility] RDW 12.9 11.5 - 14.5 % 09/29/2022 7:36 PM CDT [facility] PLT 289 130 - 400 x10'3/uL 09/29/2022 7:36 PM CDT [facility] MPV 11.2 9.3 - 12.2 FL 09/29/2022 7:36 PM CDT [facility] DIFFERENTIAL TYPE AUTOMATED DIFFERENTIAL 09/29/2022 7:36 PM CDT [facility] NEUTROPHILS % 50.6 % 09/29/2022 7:36 PM CDT [facility] LYMPHOCYTES % 42.6 % 09/29/2022 7:36 PM CDT [facility] MONOCYTES % 5.3 % 09/29/2022 7:36 PM CDT [facility] EOSINOPHILS 0.7 % 09/29/2022 7:36 PM CDT [facility] BASOPHILS 0.5 % 09/29/2022 7:36 PM CDT [facility] IMMATURE GRANS % 0.3 % 09/30/19 7:36 PM CDT [facility] ABS. NEUTROPHILS TOTAL 5.73 1.80 - 7.70 x10'3/uL 09/29/2022 7:36 PM CDT [facility] ABS. LYMPHOCYTES 4.82(H) 1.00 - 4.80 x10'3/uL 09/29/2022 7:36 PM CDT [facility] ABS. MONOCYTES 0.60 0.24 - 0.86 x10'3/uL 09/29/2022 7:36 PM CDT [facility] ABS. EOSINOPHILS 0.08 0.04 - 0.36 x10'3/uL 09/29/2022 7:36 PM CDT [facility] ABS. BASOPHILS 0.06 0.01 - 0.08 x10'3/uL 09/29/2022 7:36 PM CDT [facility] ABS. IMMATURE GRANULOCYTES 0.03 0.00 - 0.49 x10'3/uL 09/29/2022 7:36 PM CDT [facility] 09/29/2022 7:25 PM CDT Janneth [facility] Final Result [facility] [address] [place] [address], [place] [phone] documented in this encounter Visit Diagnoses Diagnosis [...] Depression Total Score: 0 03/08/19 9:30 AM SALES REP documented as of this encounter Care Teams Hospice Case Manager Relationship Specialty Start Date End Date Abiodun Segura II, MD [address] [place] [address] PCP - General FAMILY PRACTICE 03/09/21 [place] [address] [place] [address] PODIATRY/SURGERY 05/05/22 documented as of this encounter
--- OUTSIDE RECORDS SUMMARY | 2024-03-03 01:21 | XMS_ITS | Encounter Summary ---
Author Organization [facility] Address [address] [place] [address]. [place] [address] [place] [address] Care Team Providers Care Edge Bander Operator Name Role Phone Colton SILVEIRA MD, Abiodun Rushing Primary Care Provider Victoriano Langston MD Unavailable [phone] Reason for Visit * Reason Comments Vomiting Abdominal Pain * Auth/Cert (Routine) Specialty Diagnoses / Procedures Referred By Contac t Referred To Contact Diagnoses Leukocytosis Intractable abdominal pain Intractable abdominal pain Procedures NONE Janelle Pimentel DO 1 [place] [address] Phone: tel: fax: Referral ID Status Reason Start Date Expiration Date Visits Re quested Visits Authorized [id number] 1 1 Encounter Details Date Type Department Care Team (Late st Contact Info) Description 10/16/2022 5:15 PM CDT - 10/16/2022 5:19 PM CDT Surgery [facility] [place] [address] Gurinder Saldivar MD [address] [phone] EGD WITH BIOPSY Surgery Details Date/Time Status [...] Patient Health Questionnaire-2 Score 0 05/05/2022 [facility] [place] [facility] - Occupational Stress [...] may be found under the media tab. LOGIST * Gigi Sutton RN - 10/13/2022 1:03 [...] Verified as per chart. Pharmacy: [facility] [place] PCP: Abiodun Segura Insurance Plan: [facility] Discharge needs: Care Coordination Team will [...] daughter helps) Behavior Oriented;Cooperative Communication Talks;Understands speaking;Understands [place] screening tool This is a screening [...] may be found under the media tab. 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 this may occasionally confer an unintended meaning. Please reach out to provider so rectifications can bemade. JESSICA SALCEDO 10/12/22 Cosigned by Janelle Pimentel DO at 10/12/2022 7:03 AM CDT Associated attestation - Janelle Pimentel DO - 10/12/2022 7:03 AM CDT I have seen and examined the patient, and discussed the plan of care with June Leonard SENIOR ORACLE DBA. I reviewed her note and agree with [...] lead Narrative [facility] Test Date: 2022-10-11 Pat Name: LENA YOUNGBLOOD Department: 41 Room: Gender: Female Licensed Prosthetist/Orthotist: [id number] : 1970 Requested By: TRE JOHN Order Number: [id number] Reading MD: Measurements Intervals [facility] Rate: 98 P: 46 MT: 167 QRS: [...] XR CHEST PORTABLE Final Result by User, [id number] (10/12 2219) CLINICAL HISTORY: Leukocytosis COMPARISON: 09/29/2022 TECHNIQUE: AP Portable View FINDINGS: Lungs are clear. No pneumothorax or pleural effusions evident. The cardiac silhouette, mediastinal contours, and pulmonary vessels appear within normal limits. No acute osseous abnormality. IMPRESSION: No acute findings. Referred By: Interpreted By: John Campos, 10/11/2022 10:[address] ABD+PEL W IV CON ONLY Final Result by User, [id number] (10/11 1936) EXAMINATION: CT ABD+PEL W CON [...] CYNTHIA Doyle - 10/11/2022 2:16 PM CDT [place], [place] EMERGENCY DEPARTMENT ENCOUNTER Medical Screening Examination [...] st Contact Info) Description 03/14/2024 11:45 AM ALGOLOGIST Office Visit [facility] [phone] Marvin Mckeon MD [address] [facility] [address] [place], [place] [id number] 03/20/2024 11:30 AM ALGOLOGIST Office Visit [facility] - [place] [address] [place] [phone] Abiodun Segura II, MD [address] [place], [place] [phone] documented as of this encounter Goals Goal [...] - 99 mg/dL 11/01/2022 11:01 AM CDT [facility] 10/20/2022 11:5 5 AM CDT us Farrukh Reed DO POCT ORDERABLES - DEVICE Final R esult [facility] [address] [place] [address], * (ABNORMAL) BASIC METABOLIC PANEL (10/20/2022 8:55 AM CDT) GLUCOSE 122(H) 70 - 99 MG/DL 11/17/2022 9:59 AM CDT [facility] BUN 18 7 - 18 MG/DL 11/17/2022 9:59 AM CDT [facility] CREATININE S/P/B 1.10(H) 0.55 - 1.02 MG/DL 11/17/2022 9:59 AM CDT [facility] SODIUM S/P/B 141 136 - 145 MMOL/L 11/17/2022 9:59 AM CDT [facility] POTASSIUM S/P/B 4.6 3.5 - 5.1 MMOL/L 11/17/2022 9:59 AM CDT [facility] CHLORIDE S/P/B 110(H) 100 - 108 MMOL/L 11/17/2022 9:59 AM CDT [facility] CO2 27.4 21 - 32 MMOL/L 11/17/2022 9:59 AM CDT [facility] CALCIUM S/P/B 8.5 8.5 - 10.1 MG/DL 11/17/2022 9:59 AM CDT [facility] ANION GAP 3.6(L) 5 - 15 MMOL/L 11/17/2022 9:59 AM CDT [facility] BUN CREATININE RATIO 16.4 6 - 26 11/17/2022 9:59 AM CDT [facility] GFR ESTIMATE 61(L) >90 ML/MIN/1.7 3 M2 11/17/2022 9:59 AM CDT [facility] [...] LABORATORY Final Resul t Performing Organization Address City/[facility] Co de Phone Number [facility] [address] [place] [address], * POCT glucose (10/20/2022 6:25 AM CDT) GLUCOSE POC 99 70 - 99 mg/dL 11/01/2022 11:01 AM CDT [facility] 10/20/2022 6:25 AM CDT Farrukh Reed DO POCT ORDERABLES - DEVICE Final R esult Performing Organization Address [facility] Co de Phone Number [facility] [address] [place] [address], [place] [phone] * (ABNORMAL) CBC W/DIFF AUTOMATED (10/20/2022 5:00 AM CDT) WBC 8.8 4.5 - 11.0 x10'3/uL 11/18/2022 1:27 PM CDT [facility] RBC 3.39(L) 4.20 - 5.40 x10'6/uL 11/18/2022 1:27 PM CDT [facility] HGB 10.2(L) 12.0 - 16.0 G/DL 11/18/2022 1:27 PM CDT [facility] HCT 32.4(L) 38.0 - 48.0 % 11/18/2022 1:27 PM CDT [facility] MCV 95.6 81.0 - 99.0 FL 11/18/2022 1:27 PM CDT [facility] MCH 30.1 27.0 - 31.0 PG 11/18/2022 1:27 PM CDT [facility] MCHC 31.5(L) 32.0 - 36.0 G/DL 11/18/2022 1:27 PM CDT [facility] RDW 14.7(H) 11.5 - 14.5 % 11/18/2022 1:27 PM CDT [facility] PLT 259 130 - 400 x10'3/uL 11/18/2022 1:27 PM CDT [facility] MPV 11.6 9.3 - 12.2 FL 11/18/2022 1:27 PM CDT [facility] DIFFERENTIAL TYPE AUTOMATED DIFFERENTIAL 11/18/2022 1:27 PM CDT [facility] NEUTROPHILS % 46.7 % 11/18/2022 1:27 PM CDT [facility] LYMPHOCYTES % 45.4 % 11/18/2022 1:27 PM CDT [facility] MONOCYTES % 5.2 % 11/18/2022 1:27 PM CDT [facility] EOSINOPHILS 1.8 % 11/18/2022 1:27 PM CDT [facility] BASOPHILS 0.7 % 11/18/2022 1:27 PM CDT [facility] IMMATURE GRANS % 0.2 % 11/19/19 1:27 PM CDT [facility] ABS. NEUTROPHILS TOTAL 4.11 1.80 - 7.70 x10'3/uL 11/18/2022 1:27 PM CDT [facility] ABS. LYMPHOCYTES 4.00 1.00 - 4.80 x10'3/uL 11/18/2022 1:27 PM CDT [facility] ABS. MONOCYTES 0.46 0.24 - 0.86 x10'3/uL 11/18/2022 1:27 PM CDT [facility] ABS. EOSINOPHILS 0.16 0.04 - 0.36 x10'3/uL 11/18/2022 1:27 PM CDT [facility] ABS. BASOPHILS 0.06 0.01 - 0.08 x10'3/uL 11/18/2022 1:27 PM CDT [facility] ABS. IMMATURE GRANULOCYTES 0.02 0.00 - 0.49 x10'3/uL 11/18/2022 1:27 PM CDT [facility] 10/20/2022 5:00 AM CDT Ramesh Dexter DO LABORATORY Final Resul t [facility] [address] [place] [address], [place] [phone] * (ABNORMAL) POCT glucose (10/19/2022 3:58 PM CDT) [facility] Signature GLUCOSE POC 130(H) 70 - 99 mg/dL 11/01/2022 11:19 AM CDT [facility] 10/19/2022 3:58 PM CDT Farrukh Reed DO POCT ORDERABLES - DEVICE Final R esult [facility] [address] [place] [address], * (ABNORMAL) POCT glucose (10/19/2022 11:57 AM CDT) GLUCOSE POC 153(H) 70 - 99 mg/dL 11/01/2022 4:44 PM CDT [facility] 10/19/2022 11:5 7 AM CDT Farrukh Saavedraan DO POCT ORDERABLES - DEVICE Final R esult [facility] [address] [place] [address], * (ABNORMAL) URINALYSIS WI REFLEX TO CULTURE (10/19/2022 4:50 AM CDT) SPECIMEN TYPE URINE CLEAN CATCH 11/17/2022 2:13 PM CDT [facility] COLOR (U) LIGHT YELLOW 11/17/2022 9:57 AM CDT [facility] TRANSPARENCY CLEAR 11/17/2022 9:57 AM CDT [facility] SPECIFIC GRAVITY (U) 1.012 1.001 - 1.030 11/17/2022 9:57 AM CDT [facility] U PH 6.0 5.0 - 9.0 11/17/2022 9:57 AM CDT [facility] LEUKOCYTES (U) NEGATIVE NEGATIVE 11/17/2022 9:57 AM CDT [facility] NITRITES NEGATIVE NEGATIVE 11/17/2022 9:57 AM CDT [facility] PROTEIN RANDOM (U) NEGATIVE <30 MG/DL 11/17/2022 9:57 AM CDT [facility] GLUCOSE (U) NORMAL NORMAL MG/DL 11/17/2022 9:57 AM CDT [facility] KETONES MG/DL (U) NEGATIVE NEGATIVE MG/DL 11/17/2022 9:57 AM CDT [facility] UROBILINOGEN NORMAL NORMAL MG/DL 11/17/2022 9:57 AM CDT [facility] BILIRUBIN (U) NEGATIVE NEGATIVE MG/DL 11/17/2022 9:57 AM CDT [facility] BLOOD (U) NEGATIVE NEGATIVE 11/17/2022 9:57 AM CDT [facility] CULTURE & SENSITIVITY INDICATED? CULTURE IS NOT INDICATED 11/17/2022 9:57 AM CDT [facility] RBC/HPF <1 <6 /HPF 11/17/2022 9:57 AM CDT [facility] WBC/HPF 3 <6 /HPF 11/17/2022 9:57 AM CDT [facility] BACTERIA (U) RARE(A) NONE /HPF 11/17/2022 9:57 AM CDT [facility] SQUAMOUS EPITHELIALS RARE /HPF 11/17/2022 9:57 AM CDT [facility] MUCUS RARE /LPF 11/17/2022 9:57 AM CDT [facility] 10/19/2022 4:50 AM CDT us Ramesh Dexter DO URINE ORDERABLES Final Resu lt [facility] [address] [place] [address], [place] [phone] * (ABNORMAL) COMPREHENSIVE METABOLIC PANEL (10/19/2022 3:44 AM CDT) GLUCOSE 178(H) 70 - 99 MG/DL 11/17/2022 9:56 AM CDT [facility] BUN 22(H) 7 - 18 MG/DL 11/17/2022 9:56 AM T [facility] CREATININE S/P/B 1.28(H) 0.55 - 1.02 MG/DL 11/17/2022 9:56 AM CDT [facility] SODIUM S/P/B 137 136 - 145 MMOL/L 11/17/2022 9:56 AM CDT [facility] POTASSIUM S/P/B 4.2 3.5 - 5.1 MMOL/L 11/17/2022 9:56 AM T [facility] CHLORIDE S/P/B 106 100 - 108 MMOL/L 11/17/2022 9:56 AM CDT [facility] CO2 30.3 21 - 32 MMOL/L 11/17/2022 9:56 AM T [facility] CALCIUM S/P/B 8.5 8.5 - 10.1 MG/DL 11/17/2022 9:56 AM T [facility] BILIRUBIN TOTAL S/P/B 0.5 0.2 - 1.2 MG/DL 11/17/2022 9:56 AM T [facility] Comment: THIS ASSAY IS NOT RECOMMENDED FOR PATIENTS UNDERGOING TREATMENT WITH ELTROMBOPAG DUE TO THE POTENTIAL FOR FALSELY ELEVATED RESULTS. TOTAL PROTEIN S/P/B 7.4 6.4 - 8.2 G/DL 11/17/2022 9:56 AM T [facility] ALBUMIN S/P/B 2.8(L) 3.4 - 5.0 G/DL 11/17/2022 9:56 AM T [facility] AST 12(L) 15 - 37 U/L 11/17/2022 9:56 AM T [facility] ALT 21 14 - 55 U/L 11/17/2022 9:56 AM CDT [facility] ALKALINE PHOSPHATASE S/P/B 129 50 - 136 U/L 11/17/2022 9:56 AM CDT [facility] ANION GAP 0.7(L) 5 - 15 MMOL/L 11/17/2022 9:56 AM CDT [facility] BUN CREATININE RATIO 17.2 6 - 26 11/17/2022 9:56 AM CDT [facility] A/G RATIO 0.6(L) 1.0 - 2.0 RATIO 11/17/2022 9:56 AM CDT [facility] GFR ESTIMATE 51(L) >90 ML/MIN/1.7 3 M2 11/17/2022 9:56 AM CDT [facility] Ramesh Dexter DO LABORATORY Final Resul t [facility] [address] [place] [address], * (ABNORMAL) CBC W/DIFF AUTOMATED (10/19/2022 3:44 AM CDT) WBC 9.8 4.5 - 11.0 x10'3/uL 11/18/2022 1:22 PM CDT [facility] RBC 3.51(L) 4.20 - 5.40 x10'6/uL 11/18/2022 1:22 PM CDT [facility] HGB 10.6(L) 12.0 - 16.0 G/DL 11/18/2022 1:22 PM CDT [facility] HCT 32.4(L) 38.0 - 48.0 % 11/18/2022 1:22 PM CDT [facility] MCV 92.3 81.0 - 99.0 FL 11/18/2022 1:22 PM CDT [facility] MCH 30.2 27.0 - 31.0 PG 11/18/2022 1:22 PM CDT [facility] MCHC 32.7 32.0 - 36.0 G/DL 11/18/2022 1:22 PM CDT [facility] RDW 13.2 11.5 - 14.5 % 11/18/2022 1:22 PM CDT [facility] PLT 270 130 - 400 x10'3/uL 11/18/2022 1:22 PM CDT [facility] MPV 11.6 9.3 - 12.2 FL 11/18/2022 1:22 PM CDT [facility] DIFFERENTIAL TYPE AUTOMATED DIFFERENTIAL 11/18/2022 1:22 PM CDT [facility] NEUTROPHILS % 53.8 % 11/18/2022 1:22 PM CDT [facility] LYMPHOCYTES % 38.5 % 11/18/2022 1:22 PM CDT [facility] MONOCYTES % 6.0 % 11/18/2022 1:22 PM CDT [facility] EOSINOPHILS 1.0 % 11/18/2022 1:22 PM CDT [facility] BASOPHILS 0.4 % 11/18/2022 1:22 PM CDT [facility] IMMATURE GRANS % 0.3 % 11/19/19 1:22 PM CDT [facility] ABS. NEUTROPHILS TOTAL 5.25 1.80 - 7.70 x10'3/uL 11/18/2022 1:22 PM CDT [facility] ABS. LYMPHOCYTES 3.76 1.00 - 4.80 x10'3/uL 11/18/2022 1:22 PM CDT [facility] ABS. MONOCYTES 0.59 0.24 - 0.86 x10'3/uL 11/18/2022 1:22 PM CDT [facility] ABS. EOSINOPHILS 0.10 0.04 - 0.36 x10'3/uL 11/18/2022 1:22 PM CDT [facility] ABS. BASOPHILS 0.04 0.01 - 0.08 x10'3/uL 11/18/2022 1:22 PM CDT [facility] ABS. IMMATURE GRANULOCYTES 0.03 0.00 - 0.49 x10'3/uL 11/18/2022 1:22 PM CDT [facility] 10/19/2022 3:44 AM CDT Ramesh Dexter DO LABORATORY Final Resul t Performing Organization Address City/[facility]/ZIP Co de Phone Number [facility] [address] [place] [address], [place] [phone] * (ABNORMAL) POCT glucose (10/18/2022 4:35 PM CDT) [facility] GLUCOSE POC 139(H) 70 - 99 mg/dL 11/01/2022 4:44 PM CDT [facility] 10/18/2022 4:35 PM CDT Farrukh Reed DO POCT ORDERABLES - DEVICE Final R esult [facility] [address] [place] [address], [place] [phone] * POCT glucose (10/18/2022 11:31 AM CDT) GLUCOSE POC 83 70 - 99 mg/dL 11/01/2022 4:16 PM CDT [facility] 10/18/2022 11:3 1 AM CDT us Toimaria c Reed DO POCT ORDERABLES - DEVICE Final R esult [facility] [address] [place] [address], [place] [phone] * US ABD LIMITED (10/18/2022 10:45 AM CDT) Anatomical Region Laterality Modality Abdomen Ultrasound 01/20/2023 11:2 5 AM ALGOLOGIST Impressions 01/20/2023 11:28 AM ALGOLOGIST IMPRESSION: 1. Partially imaged right-sided hydronephrosis. 2. [...] 01/20/2023 11:25 AM Narrative 01/20/2023 11:28 AM ALGOLOGIST EXAMINATION: Limited abdomen ultrasound: RUQ CLINICAL HISTORY: [...] - 99 MG/DL 11/17/2022 9:55 AM CDT [facility] BUN 23(H) 7 - 18 MG/DL 11/17/2022 9:55 AM CDT [facility] CREATININE S/P/B 1.37(H) 0.55 - 1.02 MG/DL 11/17/2022 9:55 AM CDT [facility] SODIUM S/P/B 135(L) 136 - 145 MMOL/L 11/17/2022 9:55 AM CDT [facility] POTASSIUM S/P/B 4.2 3.5 - 5.1 MMOL/L 11/17/2022 9:55 AM CDT [facility] CHLORIDE S/P/B 102 100 - 108 MMOL/L 11/17/2022 9:55 AM CDT [facility] CO2 31.6 21 - 32 MMOL/L 11/17/2022 9:55 AM CDT [facility] CALCIUM S/P/B 9.2 8.5 - 10.1 MG/DL 11/17/2022 9:55 AM CDT [facility] BILIRUBIN TOTAL S/P/B 0.4 0.2 - 1.2 MG/DL 11/17/2022 9:55 AM CDT [facility] Comment: THIS ASSAY IS NOT RECOMMENDED FOR PATIENTS UNDERGOING TREATMENT WITH ELTROMBOPAG DUE TO THE POTENTIAL FOR FALSELY ELEVATED RESULTS. TOTAL PROTEIN S/P/B 8.6(H) 6.4 - 8.2 G/DL 11/17/2022 9:55 AM CDT [facility] ALBUMIN S/P/B 3.4 3.4 - 5.0 G/DL 11/17/2022 9:55 AM CDT [facility] AST 19 15 - 37 U/L 11/17/2022 9:55 AM CDT [facility] ALT 23 14 - 55 U/L 11/17/2022 9:55 AM CDT [facility] ALKALINE PHOSPHATASE S/P/B 141(H) 50 - 136 U/L 11/17/2022 9:55 AM CDT [facility] ANION GAP 1.4(L) 5 - 15 MMOL/L 11/17/2022 9:55 AM CDT [facility] BUN CREATININE RATIO 16.8 6 - 26 11/17/2022 9:55 AM T [facility] A/G RATIO 0.7(L) 1.0 - 2.0 RATIO 11/17/2022 9:55 AM T [facility] GFR ESTIMATE 47(L) >90 ML/MIN/1.7 3 M2 11/17/2022 9:55 AM CDT [facility] Ramesh Dexter DO LABORATORY Final Resul t [facility] [address] [place] [address], [place] [phone] * (ABNORMAL) CBC W/DIFF AUTOMATED (10/18/2022 5:07 AM CDT) [facility] WBC 9.5 4.5 - 11.0 x10'3/uL 11/17/2022 6:08 PM CDT [facility] RBC 4.08(L) 4.20 - 5.40 x10'6/uL 11/17/2022 6:08 PM CDT [facility] HGB 12.5 12.0 - 16.0 G/DL 11/17/2022 6:08 PM CDT [facility] HCT 37.2(L) 38.0 - 48.0 % 11/17/2022 6:08 PM CDT [facility] MCV 91.2 81.0 - 99.0 FL 11/17/2022 6:08 PM CDT [facility] MCH 30.6 27.0 - 31.0 PG 11/17/2022 6:08 PM CDT [facility] MCHC 33.6 32.0 - 36.0 G/DL 11/17/2022 6:08 PM CDT [facility] RDW 13.0 11.5 - 14.5 % 11/17/2022 6:08 PM CDT [facility] PLT 291 130 - 400 x10'3/uL 11/17/2022 6:08 PM CDT [facility] MPV 11.3 9.3 - 12.2 FL 11/17/2022 6:08 PM CDT [facility] NEUTROPHILS % 63.0 % 11/17/2022 6:09 PM CDT [facility] LYMPHOCYTES % 30.0 % 11/17/2022 6:09 PM CDT [facility] MONOCYTES % 6.0 % 11/17/2022 6:09 PM CDT [facility] EOSINOPHILS 1.0 % 11/17/2022 6:09 PM CDT [facility] ABS. LYMPHOCYTES 2.85 1.00 - 4.80 x10'3/uL 11/17/2022 6:09 PM CDT [facility] ABS. NEUTROPHILS TOTAL 5.98 1.80 - 7.70 x10'3/uL 11/17/2022 6:09 PM CDT [facility] ABS. MONOCYTES 0.57 0.24 - 0.86 x10'3/uL 11/17/2022 6:09 PM CDT [facility] ABS. EOSINOPHILS 0.10 0.04 - 0.36 x10'3/uL 11/17/2022 6:09 PM CDT [facility] DIFFERENTIAL TYPE AUTOMATED DIFFERENTIAL 11/17/2022 6:09 PM CDT [facility] PLT EST. ADEQUATE 11/17/2022 6:09 PM CDT [facility] 10/18/2022 5:07 AM CDT Ramesh Dexter DO LABORATORY Final Resul t [facility] [address] [place] [address], [place] [phone] * (ABNORMAL) URINALYSIS WI REFLEX TO CULTURE (10/17/2022 10:30 PM CDT) SPECIMEN TYPE URINE CLEAN CATCH 11/17/2022 2:08 PM CDT [facility] COLOR (U) LIGHT YELLOW 11/17/2022 9:54 AM CDT [facility] TRANSPARENCY CLEAR 11/17/2022 9:54 AM CDT [facility] SPECIFIC GRAVITY (U) 1.015 1.001 - 1.030 11/17/2022 9:54 AM CDT [facility] U PH 5.5 5.0 - 9.0 11/17/2022 9:54 AM T [facility] LEUKOCYTES (U) NEGATIVE NEGATIVE 11/17/2022 9:54 AM T [facility] NITRITES NEGATIVE NEGATIVE 11/17/2022 9:54 AM T [facility] PROTEIN RANDOM (U) 20 <30 MG/DL 11/17/2022 9:54 AM T [facility] GLUCOSE (U) NORMAL NORMAL MG/DL 11/17/2022 9:54 AM T [facility] KETONES MG/DL (U) NEGATIVE NEGATIVE MG/DL 11/17/2022 9:54 AM [facility] UROBILINOGEN NORMAL NORMAL MG/DL 11/17/2022 9:54 AM T [facility] BILIRUBIN (U) NEGATIVE NEGATIVE MG/DL 11/17/2022 9:54 AM T [facility] BLOOD (U) NEGATIVE NEGATIVE 11/17/2022 9:54 AM [facility] CULTURE & SENSITIVITY INDICATED? CULTURE IS NOT INDICATED 11/17/2022 9:54 AM T [facility] RBC/HPF 1 <6 /HPF 11/17/2022 9:54 AM T [facility] WBC/HPF 4 <6 /HPF 11/17/2022 9:54 AM T [facility] BACTERIA (U) FEW(A) NONE /HPF 11/17/2022 9:54 AM T [facility] SQUAMOUS EPITHELIALS RARE /HPF 11/17/2022 9:54 AM T [facility] MUCUS RARE /LPF 11/17/2022 9:54 AM T [facility] 10/17/2022 10:3 0 PM CDT Ramesh Dexter DO URINE ORDERABLES Final Resu lt Performing Organization Address [facility] Co de Phone Number [facility] [address] [place] [id number], [place] [phone] * (ABNORMAL) POCT glucose (10/17/2022 4:47 PM CDT) GLUCOSE POC 162(H) 70 - 99 mg/dL 11/01/2022 4:44 PM CDT [facility] 10/17/2022 4:47 PM CDT Toimaria c Reed POCT ORDERABLES - DEVICE Final R esult Performing Organization Address [facility] Co de Phone Number [facility] [address] [place] [id number], [place] [phone] * (ABNORMAL) POCT glucose (10/17/2022 10:43 AM CDT) GLUCOSE POC 62(L) 70 - 99 mg/dL 11/01/2022 4:44 PM CDT [facility] 10/17/2022 10:4 3 AM CDT Toimaria c Reed DO POCT ORDERABLES - DEVICE Final R esult Performing Organization Address City/[facility] Co de Phone Number [facility] [address] [place] [address], [place] [phone] * (ABNORMAL) CBC W/DIFF AUTOMATED (10/17/2022 6:00 AM CDT) WBC 8.4 4.5 - 11.0 x10'3/uL 11/17/2022 5:59 PM CDT [facility] RBC 3.90(L) 4.20 - 5.40 x10'6/uL 11/17/2022 5:59 PM CDT [facility] HGB 11.6(L) 12.0 - 16.0 G/DL 11/17/2022 5:59 PM CDT [facility] HCT 35.6(L) 38.0 - 48.0 % 11/17/2022 5:59 PM CDT [facility] MCV 91.3 81.0 - 99.0 FL 11/17/2022 5:59 PM CDT [facility] MCH 29.7 27.0 - 31.0 PG 11/17/2022 5:59 PM CDT [facility] MCHC 32.6 32.0 - 36.0 G/DL 11/17/2022 5:59 PM CDT [facility] RDW 13.2 11.5 - 14.5 % 11/17/2022 5:59 PM CDT [facility] PLT 290 130 - 400 x10'3/uL 11/17/2022 5:59 PM CDT [facility] MPV 11.2 9.3 - 12.2 FL 11/17/2022 5:59 PM CDT [facility] NEUTROPHILS % 56.0 % 11/17/2022 5:59 PM CDT [facility] LYMPHOCYTES % 36.0 % 11/17/2022 5:59 PM CDT [facility] MONOCYTES % 6.0 % 11/17/2022 5:59 PM CDT [facility] EOSINOPHILS 2.0 % 11/17/2022 5:59 PM CDT [facility] ABS. LYMPHOCYTES 3.02 1.00 - 4.80 x10'3/uL 11/17/2022 5:59 PM CDT [facility] ABS. NEUTROPHILS TOTAL 4.71 1.80 - 7.70 x10'3/uL 11/17/2022 5:59 PM CDT [facility] ABS. MONOCYTES 0.50 0.24 - 0.86 x10'3/uL 11/17/2022 5:59 PM CDT [facility] ABS. EOSINOPHILS 0.17 0.04 - 0.36 x10'3/uL 11/17/2022 5:59 PM CDT [facility] DIFFERENTIAL TYPE AUTOMATED DIFFERENTIAL 11/17/2022 5:59 PM CDT [facility] PLT EST. ADEQUATE 11/17/2022 5:59 PM CDT [facility] 10/17/2022 6:00 AM CDT us Ramesh Dexter DO LABORATORY Final Resul t [facility] [address] [place] [address], * (ABNORMAL) BASIC METABOLIC PANEL (10/17/2022 6:00 AM CDT) GLUCOSE 138(H) 70 - 99 MG/DL 11/17/2022 9:52 AM CDT [facility] BUN 17 7 - 18 MG/DL 11/17/2022 9:52 AM CDT [facility] CREATININE S/P/B 1.17(H) 0.55 - 1.02 MG/DL 11/17/2022 9:52 AM CDT [facility] SODIUM S/P/B 139 136 - 145 MMOL/L 11/17/2022 9:52 AM CDT [facility] POTASSIUM S/P/B 4.2 3.5 - 5.1 MMOL/L 11/17/2022 9:52 AM CDT [facility] CHLORIDE S/P/B 104 100 - 108 MMOL/L 11/17/2022 9:52 AM CDT [facility] CO2 28.2 21 - 32 MMOL/L 11/17/2022 9:52 AM CDT [facility] CALCIUM S/P/B 9.2 8.5 - 10.1 MG/DL 11/17/2022 9:52 AM CDT [facility] ANION GAP 6.8 5 - 15 MMOL/L 11/17/2022 9:52 AM CDT [facility] BUN CREATININE RATIO 14.5 6 - 26 11/17/2022 9:52 AM CDT [facility] GFR ESTIMATE 56(L) >90 ML/MIN/1.7 3 M2 11/17/2022 9:52 AM CDT [facility] Ramesh Dexter DO LABORATORY Final Resul t [facility] [address] [place] [address], [place] [phone] * POCT glucose (10/16/2022 4:07 PM CDT) [facility] GLUCOSE POC 99 70 - 99 mg/dL 11/01/2022 4:44 PM CDT [facility] 10/16/2022 4:07 PM CDT us Farrukh Reed DO POCT ORDERABLES - DEVICE Final R esult [facility] [address] [place] [address], [place] [phone] * (ABNORMAL) POCT glucose (10/16/2022 10:28 AM CDT) GLUCOSE POC 110(H) 70 - 99 mg/dL 11/01/2022 4:44 PM CDT [facility] 10/16/2022 10:2 8 AM CDT Farrukh Reed DO POCT ORDERABLES - DEVICE Final R esult Performing Organization Address City/[facility]/ZIP Co de Phone Number [facility] [address] [place] [address], [place] [phone] * POCT glucose (10/16/2022 7:19 AM CDT) GLUCOSE POC 87 70 - 99 mg/dL 11/01/2022 4:44 PM CDT [facility] 10/16/2022 7:19 AM CDT Farrukh Reed DO POCT ORDERABLES - DEVICE Final R esult Performing Organization Address City/[facility]/ZIP Co de Phone Number [facility] [address] [place] [address], [place] [phone] * (ABNORMAL) POCT glucose (10/15/2022 9:07 PM CDT) GLUCOSE POC 169(H) 70 - 99 mg/dL 11/01/2022 11:19 AM CDT [facility] 10/15/2022 9:07 PM CDT Farrukh Reed DO POCT ORDERABLES - DEVICE Final R esult Performing Organization Address City/[facility]/ZIP Co de Phone Number [facility] [address] [place] [address], [place] [phone] * (ABNORMAL) POCT glucose (10/15/2022 4:02 PM CDT) GLUCOSE POC 111(H) 70 - 99 mg/dL 11/01/2022 11:19 AM CDT [facility] 10/15/2022 4:02 PM CDT Farrukh Reed DO POCT ORDERABLES - DEVICE Final R esult Performing Organization Address City/[facility] Co de Phone Number [facility] [address] [place] [address], [place] [phone] * (ABNORMAL) POCT glucose (10/15/2022 11:53 AM CDT) GLUCOSE POC 126(H) 70 - 99 mg/dL 11/01/2022 11:19 AM CDT [facility] 10/15/2022 11:5 3 AM CDT Farrukh Reed DO POCT ORDERABLES - DEVICE Final R esult Performing Organization Address City/[facility]/ZIP Co de Phone Number [facility] [address] [place] [address], [place] [phone] * POCT glucose (10/15/2022 5:22 AM CDT) GLUCOSE POC 81 70 - 99 mg/dL 11/01/2022 11:19 AM CDT [facility] 10/15/2022 5:22 AM CDT Farrukh Reed POCT ORDERABLES - DEVICE Final R esult [facility] [address] [place] [address], * (ABNORMAL) COMPREHENSIVE METABOLIC PANEL (10/15/2022 5:15 AM CDT) GLUCOSE 92 70 - 99 MG/DL 10/28/2022 7:10 PM CDT [facility] BUN 12 7 - 18 MG/DL 10/28/2022 7:10 PM CDT [facility] CREATININE S/P/B 1.02 0.55 - 1.02 MG/DL 10/28/2022 7:10 PM CDT [facility] SODIUM S/P/B 140 136 - 145 MMOL/L 10/28/2022 7:10 PM CDT [facility] POTASSIUM S/P/B 4.2 3.5 - 5.1 MMOL/L 10/28/2022 7:10 PM CDT [facility] CHLORIDE S/P/B 109(H) 100 - 108 MMOL/L 10/28/2022 7:10 PM CDT [facility] CO2 26.9 21 - 32 MMOL/L 10/28/2022 7:10 PM CDT [facility] CALCIUM S/P/B 9.6 8.5 - 10.1 MG/DL 10/28/2022 7:10 PM CDT [facility] BILIRUBIN TOTAL S/P/B 0.3 0.2 - 1.2 MG/DL 10/28/2022 7:10 PM CDT [facility] Comment: THIS ASSAY IS NOT RECOMMENDED FOR PATIENTS UNDERGOING TREATMENT WITH ELTROMBOPAG DUE TO THE POTENTIAL FOR FALSELY ELEVATED RESULTS. TOTAL PROTEIN S/P/B 7.9 6.4 - 8.2 G/DL 10/28/2022 7:10 PM CDT [facility] ALBUMIN S/P/B 3.0(L) 3.4 - 5.0 G/DL 10/28/2022 7:10 PM CDT [facility] AST 19 15 - 37 U/L 10/28/2022 7:10 PM T [facility] ALT 24 14 - 55 U/L 10/28/2022 7:10 PM T [facility] ALKALINE PHOSPHATASE S/P/B 134 50 - 136 U/L 10/28/2022 7:10 PM T [facility] ANION GAP 4.1(L) 5 - 15 MMOL/L 10/28/2022 7:10 PM T [facility] BUN CREATININE RATIO 11.8 6 - 26 10/28/2022 7:10 PM [facility] A/G RATIO 0.6(L) 1.0 - 2.0 RATIO 10/28/2022 7:10 PM [facility] GFR ESTIMATE 67(L) >90 ML/MIN/1.7 3 M2 10/28/2022 7:10 PM T [facility] Nanda Cartagena MD LABORATORY Final Res ult [facility] [address] [place] [address], [place] [phone] * (ABNORMAL) CBC W/DIFF AUTOMATED (10/15/2022 5:15 AM CDT) [facility] WBC 8.7 4.5 - 11.0 x10'3/uL 10/28/2022 7:10 PM CDT [facility] RBC 3.82(L) 4.20 - 5.40 x10'6/uL 10/28/2022 7:10 PM CDT [facility] HGB 11.3(L) 12.0 - 16.0 G/DL 10/28/2022 7:10 PM CDT [facility] HCT 35.5(L) 38.0 - 48.0 % 10/28/2022 7:10 PM CDT [facility] MCV 92.9 81.0 - 99.0 FL 10/28/2022 7:10 PM CDT [facility] MCH 29.6 27.0 - 31.0 PG 10/28/2022 7:10 PM CDT [facility] MCHC 31.8(L) 32.0 - 36.0 G/DL 10/28/2022 7:10 PM CDT [facility] RDW 13.2 11.5 - 14.5 % 10/28/2022 7:10 PM CDT [facility] PLT 276 130 - 400 x10'3/uL 10/28/2022 7:10 PM CDT [facility] MPV 11.2 9.3 - 12.2 FL 10/28/2022 7:10 PM CDT [facility] DIFFERENTIAL TYPE AUTOMATED DIFFERENTIAL 10/28/2022 7:10 PM CDT [facility] NEUTROPHILS % 54.7 % 10/28/2022 7:10 PM CDT [facility] LYMPHOCYTES % 37.9 % 10/28/2022 7:10 PM CDT [facility] MONOCYTES % 5.2 % 10/28/2022 7:10 PM CDT [facility] EOSINOPHILS 1.4 % 10/28/2022 7:10 PM CDT [facility] BASOPHILS 0.5 % 10/28/2022 7:10 PM CDT [facility] IMMATURE GRANS % 0.3 % 10/29/19 7:10 PM CDT [facility] ABS. NEUTROPHILS TOTAL 4.77 1.80 - 7.70 x10'3/uL 10/28/2022 7:10 PM CDT [facility] ABS. LYMPHOCYTES 3.30 1.00 - 4.80 x10'3/uL 10/28/2022 7:10 PM CDT [facility] ABS. MONOCYTES 0.45 0.24 - 0.86 x10'3/uL 10/28/2022 7:10 PM CDT [facility] ABS. EOSINOPHILS 0.12 0.04 - 0.36 x10'3/uL 10/28/2022 7:10 PM CDT [facility] ABS. BASOPHILS 0.04 0.01 - 0.08 x10'3/uL 10/28/2022 7:10 PM CDT [facility] ABS. IMMATURE GRANULOCYTES 0.03 0.00 - 0.49 x10'3/uL 10/28/2022 7:10 PM CDT [facility] 10/15/2022 5:15 AM CDT us Nanda Cartagena MD LABORATORY Final Res ult [facility] [address] [place] [address], [place] [phone] * (ABNORMAL) POCT glucose (10/14/2022 8:51 PM CDT) GLUCOSE POC 148(H) 70 - 99 mg/dL 10/14/2022 8:52 PM CDT [facility] 10/14/2022 8:51 PM CDT Farrukh Reed DO POCT ORDERABLES - DEVICE Final R esult [facility] [address] [place] [address], [place] [phone] * (ABNORMAL) POCT glucose (10/14/2022 4:02 PM CDT) GLUCOSE POC 106(H) 70 - 99 mg/dL 10/14/2022 5:17 PM CDT [facility] 10/14/2022 4:02 PM CDT Farrukh Reed DO POCT ORDERABLES - DEVICE Final R esult [facility] [address] [place] [address], [place] [phone] * (ABNORMAL) POCT glucose (10/14/2022 11:38 AM CDT) GLUCOSE POC 129(H) 70 - 99 mg/dL 10/15/2022 2:14 AM CDT [facility] 10/14/2022 11:3 8 AM CDT Adnan Reed DO POCT ORDERABLES - DEVICE Final R esult [facility] [address] [place] [address], [place] [phone] * (ABNORMAL) COMPREHENSIVE METABOLIC PANEL (10/14/2022 4:34 AM CDT) [facility] GLUCOSE 115(H) 70 - 99 MG/DL 10/14/2022 5:10 AM CDT [facility] BUN 17 7 - 18 MG/DL 10/14/2022 5:10 AM CDT [facility] CREATININE S/P/B 1.09(H) 0.55 - 1.02 MG/DL 10/14/2022 5:10 AM CDT [facility] SODIUM S/P/B 139 136 - 145 MMOL/L 10/14/2022 5:10 AM CDT [facility] POTASSIUM S/P/B 4.1 3.5 - 5.1 MMOL/L 10/14/2022 5:10 AM CDT [facility] CHLORIDE S/P/B 108 100 - 108 MMOL/L 10/14/2022 5:10 AM CDT [facility] CO2 25.4 21 - 32 MMOL/L 10/14/2022 5:10 AM CDT [facility] CALCIUM S/P/B 8.9 8.5 - 10.1 MG/DL 10/14/2022 5:10 AM CDT [facility] BILIRUBIN TOTAL S/P/B 0.4 0.2 - 1.2 MG/DL 10/14/2022 5:10 AM CDT [facility] Comment: THIS ASSAY IS NOT RECOMMENDED FOR PATIENTS UNDERGOING TREATMENT WITH ELTROMBOPAG DUE TO THE POTENTIAL FOR FALSELY ELEVATED RESULTS. TOTAL PROTEIN S/P/B 8.0 6.4 - 8.2 G/DL 10/14/2022 5:10 AM CDT [facility] ALBUMIN S/P/B 3.0(L) 3.4 - 5.0 G/DL 10/14/2022 5:10 AM CDT [facility] AST 19 15 - 37 U/L 10/14/2022 5:10 AM CDT [facility] ALT 23 14 - 55 U/L 10/14/2022 5:10 AM CDT [facility] ALKALINE PHOSPHATASE S/P/B 120 50 - 136 U/L 10/14/2022 5:10 AM CDT [facility] ANION GAP 5.6 5 - 15 MMOL/L 10/14/2022 5:10 AM CDT [facility] BUN CREATININE RATIO 15.6 6 - 26 10/14/2022 5:10 AM CDT [facility] A/G RATIO 0.6(L) 1.0 - 2.0 RATIO 10/14/2022 5:10 AM CDT [facility] GFR ESTIMATE 62(L) >90 ML/MIN/1.7 3 M2 10/14/2022 5:10 AM CDT [facility] Nanda Cartagena MD LABORATORY Final Res ult [facility] [address] [place] [address], [place] [phone] * (ABNORMAL) CBC W/DIFF AUTOMATED (10/14/2022 4:34 AM CDT) [facility] WBC 10.3 4.5 - 11.0 x10'3/uL 10/14/2022 4:48 AM CDT [facility] RBC 3.86(L) 4.20 - 5.40 x10'6/uL 10/14/2022 4:48 AM CDT [facility] HGB 11.6(L) 12.0 - 16.0 G/DL 10/14/2022 4:48 AM CDT [facility] HCT 34.9(L) 38.0 - 48.0 % 10/14/2022 4:48 AM CDT [facility] MCV 90.4 81.0 - 99.0 FL 10/14/2022 4:48 AM CDT [facility] MCH 30.1 27.0 - 31.0 PG 10/14/2022 4:48 AM CDT [facility] MCHC 33.2 32.0 - 36.0 G/DL 10/14/2022 4:48 AM CDT [facility] RDW 13.1 11.5 - 14.5 % 10/14/2022 4:48 AM CDT [facility] PLT 298 130 - 400 x10'3/uL 10/14/2022 4:48 AM CDT [facility] MPV 11.2 9.3 - 12.2 FL 10/14/2022 4:48 AM CDT [facility] DIFFERENTIAL TYPE AUTOMATED DIFFERENTIAL 10/14/2022 4:48 AM CDT [facility] NEUTROPHILS % 61.5 % 10/14/2022 4:48 AM CDT [facility] LYMPHOCYTES % 32.1 % 10/14/2022 4:48 AM CDT [facility] MONOCYTES % 4.1 % 10/14/2022 4:48 AM CDT [facility] EOSINOPHILS 1.4 % 10/14/2022 4:48 AM CDT [facility] BASOPHILS 0.5 % 10/14/2022 4:48 AM CDT [facility] IMMATURE GRANS % 0.4 % 10/15/19 4:48 AM CDT [facility] ABS. NEUTROPHILS TOTAL 6.32 1.80 - 7.70 x10'3/uL 10/14/2022 4:48 AM CDT [facility] ABS. LYMPHOCYTES 3.29 1.00 - 4.80 x10'3/uL 10/14/2022 4:48 AM CDT [facility] ABS. MONOCYTES 0.42 0.24 - 0.86 x10'3/uL 10/14/2022 4:48 AM CDT [facility] ABS. EOSINOPHILS 0.14 0.04 - 0.36 x10'3/uL 10/14/2022 4:48 AM CDT [facility] ABS. BASOPHILS 0.05 0.01 - 0.08 x10'3/uL 10/14/2022 4:48 AM CDT [facility] ABS. IMMATURE GRANULOCYTES 0.04 0.00 - 0.49 x10'3/uL 10/14/2022 4:48 AM CDT [facility] 10/14/2022 4:34 AM CDT us Nanda Cartagena MD LABORATORY Final Res ult [facility] [address] [place] [address], [place] [phone] * (ABNORMAL) POCT glucose (10/13/2022 8:36 PM CDT) GLUCOSE POC 130(H) 70 - 99 mg/dL 10/13/2022 8:38 PM CDT [facility] 10/13/2022 8:36 PM CDT us Holli Murray MD POCT ORDERABLES - DEVICE Fin al Result [facility] [address] [place] [address], [place] [phone] * (ABNORMAL) POCT glucose (10/13/2022 4:18 PM CDT) GLUCOSE POC 126(H) 70 - 99 mg/dL 10/13/2022 4:21 PM CDT [facility] 10/13/2022 4:18 PM CDT us Holli Murray MD POCT ORDERABLES - DEVICE Fin al Result Performing Organization Address City/[facility]/ZIP Co de Phone Number [facility] [address] [place] [address], [place] [phone] * (ABNORMAL) POCT glucose (10/13/2022 11:20 AM CDT) GLUCOSE POC 104(H) 70 - 99 mg/dL 10/13/2022 11:46 AM CDT [facility] 10/13/2022 11:2 0 AM CDT us Holli Murray MD POCT ORDERABLES - DEVICE Fin al Result Performing Organization Address City/[facility]/ZIP Co de Phone Number [facility] [address] [place] [address], [place] [phone] * (ABNORMAL) COMPREHENSIVE METABOLIC PANEL (10/13/2022 5:15 AM CDT) [facility] GLUCOSE 156(H) 70 - 99 MG/DL 10/13/2022 5:56 AM CDT [facility] BUN 15 7 - 18 MG/DL 10/13/2022 5:56 AM CDT [facility] CREATININE S/P/B 1.57(H) 0.55 - 1.02 MG/DL 10/13/2022 5:56 AM CDT [facility] SODIUM S/P/B 134(L) 136 - 145 MMOL/L 10/13/2022 5:56 AM CDT [facility] POTASSIUM S/P/B 3.8 3.5 - 5.1 MMOL/L 10/13/2022 5:56 AM CDT [facility] CHLORIDE S/P/B 100 100 - 108 MMOL/L 10/13/2022 5:56 AM CDT [facility] CO2 25.5 21 - 32 MMOL/L 10/13/2022 5:56 AM CDT [facility] CALCIUM S/P/B 8.9 8.5 - 10.1 MG/DL 10/13/2022 5:56 AM CDT [facility] BILIRUBIN TOTAL S/P/B 0.4 0.2 - 1.2 MG/DL 10/13/2022 5:56 AM CDT [facility] Comment: THIS ASSAY IS NOT RECOMMENDED FOR PATIENTS UNDERGOING TREATMENT WITH ELTROMBOPAG DUE TO THE POTENTIAL FOR FALSELY ELEVATED RESULTS. TOTAL PROTEIN S/P/B 8.3(H) 6.4 - 8.2 G/DL 10/13/2022 5:56 AM CDT [facility] ALBUMIN S/P/B 3.2(L) 3.4 - 5.0 G/DL 10/13/2022 5:56 AM CDT [facility] AST 15 15 - 37 U/L 10/13/2022 5:56 AM CDT [facility] ALT 24 14 - 55 U/L 10/13/2022 5:56 AM CDT [facility] ALKALINE PHOSPHATASE S/P/B 124 50 - 136 U/L 10/13/2022 5:56 AM CDT [facility] ANION GAP 8.5 5 - 15 MMOL/L 10/13/2022 5:56 AM CDT [facility] BUN CREATININE RATIO 9.6 6 - 26 10/13/2022 5:56 AM CDT [facility] A/G RATIO 0.6(L) 1.0 - 2.0 RATIO 10/13/2022 5:56 AM CDT [facility] GFR ESTIMATE 40(L) >90 ML/MIN/1.7 3 M2 10/13/2022 5:56 AM CDT [facility] CDT June Leonard NP LABORATORY Final Result [facility] [address] [place] [address], [place] [phone] * (ABNORMAL) CBC W/DIFF AUTOMATED (10/13/2022 5:15 AM CDT) WBC 11.7(H) 4.5 - 11.0 x10'3/uL 10/13/2022 5:29 AM CDT [facility] RBC 3.85(L) 4.20 - 5.40 x10'6/uL 10/13/2022 5:29 AM CDT [facility] HGB 11.4(L) 12.0 - 16.0 G/DL 10/13/2022 5:29 AM CDT [facility] HCT 34.5(L) 38.0 - 48.0 % 10/13/2022 5:29 AM CDT [facility] MCV 89.6 81.0 - 99.0 FL 10/13/2022 5:29 AM CDT [facility] MCH 29.6 27.0 - 31.0 PG 10/13/2022 5:29 AM CDT [facility] MCHC 33.0 32.0 - 36.0 G/DL 10/13/2022 5:29 AM CDT [facility] RDW 13.1 11.5 - 14.5 % 10/13/2022 5:29 AM CDT [facility] PLT 303 130 - 400 x10'3/uL 10/13/2022 5:29 AM CDT [facility] MPV 11.0 9.3 - 12.2 FL 10/13/2022 5:29 AM CDT [facility] DIFFERENTIAL TYPE AUTOMATED DIFFERENTIAL 10/13/2022 5:29 AM CDT [facility] NEUTROPHILS % 65.4 % 10/13/2022 5:29 AM CDT [facility] LYMPHOCYTES % 28.4 % 10/13/2022 5:29 AM CDT [facility] MONOCYTES % 4.7 % 10/13/2022 5:29 AM CDT [facility] EOSINOPHILS 0.8 % 10/13/2022 5:29 AM CDT [facility] BASOPHILS 0.4 % 10/13/2022 5:29 AM CDT [facility] IMMATURE GRANS % 0.3 % 10/14/19 5:29 AM CDT [facility] ABS. NEUTROPHILS TOTAL 7.62 1.80 - 7.70 x10'3/uL 10/13/2022 5:29 AM CDT [facility] ABS. LYMPHOCYTES 3.31 1.00 - 4.80 x10'3/uL 10/13/2022 5:29 AM CDT [facility] ABS. MONOCYTES 0.55 0.24 - 0.86 x10'3/uL 10/13/2022 5:29 AM CDT [facility] ABS. EOSINOPHILS 0.09 0.04 - 0.36 x10'3/uL 10/13/2022 5:29 AM CDT [facility] ABS. BASOPHILS 0.05 0.01 - 0.08 x10'3/uL 10/13/2022 5:29 AM CDT [facility] ABS. IMMATURE GRANULOCYTES 0.04 0.00 - 0.49 x10'3/uL 10/13/2022 5:29 AM CDT [facility] 10/13/2022 5:15 AM CDT us June Leonard NP LABORATORY Final Result [facility] [address] [place] [address], [place] [phone] * (ABNORMAL) C-REACTIVE PROTEIN (10/13/2022 5:15 AM CDT) C-REACTIVE PROTEIN 4.05(H) <0.29 mg/dL 10/13/2022 5:56 AM CDT [facility] 10/13/2022 5:15 AM CDT June Leonard [employer] LABORATORY Final Result Performing Organization Address [facility] Co de Phone Number [facility] [address] [place] [address], [place] [phone] * (ABNORMAL) SED RATE, ERYTHROCYTE (ESR) (10/13/2022 5:15 AM CDT) ESR 74(H) <30 MM/HR 10/13/2022 5:35 AM CDT [facility] Comment:Testing performed on [employer] iSED. 10/13/2022 5:15 AM CDT June Leonard [employer] LABORATORY Final Result Performing Organization Address [facility] Co de Phone Number [facility] [address] [place] [address], [place] [phone] * (ABNORMAL) POCT glucose (10/12/2022 10:18 PM CDT) GLUCOSE POC 153(H) 70 - 99 mg/dL 10/12/2022 10:20 PM CDT [facility] 10/12/2022 10:1 8 PM CDT Holli Murray MD POCT ORDERABLES - DEVICE Fin al Result Performing Organization Address [facility] Co de Phone Number [facility] [address] [place] [address], [place] [phone] * (ABNORMAL) POCT glucose (10/12/2022 9:19 PM CDT) GLUCOSE POC 58(L) 70 - 99 mg/dL 10/12/2022 9:21 PM CDT [facility] 10/12/2022 9:19 PM CDT us Holli Murray MD POCT ORDERABLES - DEVICE Fin al Result [facility] [address] [place] [address], [place] [phone] * POCT glucose (10/12/2022 8:30 PM CDT) GLUCOSE POC 77 70 - 99 mg/dL 10/12/2022 8:32 PM CDT [facility] 10/12/2022 8:30 PM CDT us Holli Murray MD POCT ORDERABLES - DEVICE Fin al Result Performing Organization Address [place]/[facility] Co de Phone Number [facility] [address] [place] [address], [place] [phone] * (ABNORMAL) POCT glucose (10/12/2022 4:48 PM CDT) GLUCOSE POC 144(H) 70 - 99 mg/dL 10/12/2022 4:58 PM CDT [facility] 10/12/2022 4:48 PM CDT us Holli Murray MD POCT ORDERABLES - DEVICE Fin al Result Performing Organization Address City/[facility]/ZIP Co de Phone Number [facility] [address] [place] [address], [place] [phone] * (ABNORMAL) POCT glucose (10/12/2022 11:32 AM CDT) GLUCOSE POC 120(H) 70 - 99 mg/dL 10/12/2022 11:46 AM CDT [facility] 10/12/2022 11:3 2 AM CDT Holli Murray MD POCT ORDERABLES - DEVICE Fin al Result [facility] [address] [place] [address], [place] [phone] * (ABNORMAL) POCT glucose (10/12/2022 5:49 AM CDT) GLUCOSE POC 215(H) 70 - 99 mg/dL 10/12/2022 5:51 AM CDT [facility] 10/12/2022 5:49 AM CDT Holli Murray MD POCT ORDERABLES - DEVICE Fin al Result Performing Organization Address City/[facility] Co de Phone Number [facility] [address] [place] [address], [place] [phone] * (ABNORMAL) COMPREHENSIVE METABOLIC PANEL (10/12/2022 4:50 AM CDT) GLUCOSE 119(H) 70 - 99 MG/DL 10/12/2022 5:28 AM CDT [facility] BUN 17 7 - 18 MG/DL 10/12/2022 5:28 AM CDT [facility] CREATININE S/P/B 1.03(H) 0.55 - 1.02 MG/DL 10/12/2022 5:28 AM CDT [facility] SODIUM S/P/B 139 136 - 145 MMOL/L 10/12/2022 5:28 AM CDT [facility] POTASSIUM S/P/B 3.6 3.5 - 5.1 MMOL/L 10/12/2022 5:28 AM CDT [facility] CHLORIDE S/P/B 107 100 - 108 MMOL/L 10/12/2022 5:28 AM CDT [facility] CO2 25.6 21 - 32 MMOL/L 10/12/2022 5:28 AM CDT [facility] CALCIUM S/P/B 9.1 8.5 - 10.1 MG/DL 10/12/2022 5:28 AM CDT [facility] BILIRUBIN TOTAL S/P/B 0.8 0.2 - 1.2 MG/DL 10/12/2022 5:28 AM CDT [facility] Comment: THIS ASSAY IS NOT RECOMMENDED FOR PATIENTS UNDERGOING TREATMENT WITH ELTROMBOPAG DUE TO THE POTENTIAL FOR FALSELY ELEVATED RESULTS. TOTAL PROTEIN S/P/B 8.3(H) 6.4 - 8.2 G/DL 10/12/2022 5:28 AM T [facility] ALBUMIN S/P/B 3.3(L) 3.4 - 5.0 G/DL 10/12/2022 5:28 AM CDT [facility] AST 18 15 - 37 U/L 10/12/2022 5:28 AM T [facility] ALT 23 14 - 55 U/L 10/12/2022 5:28 AM CDT [facility] ALKALINE PHOSPHATASE S/P/B 123 50 - 136 U/L 10/12/2022 5:28 AM T [facility] ANION GAP 6.4 5 - 15 MMOL/L 10/12/2022 5:28 AM T [facility] BUN CREATININE RATIO 16.5 6 - 26 10/12/2022 5:28 AM T [facility] A/G RATIO 0.7(L) 1.0 - 2.0 RATIO 10/12/2022 5:28 AM CDT [facility] GFR ESTIMATE 66(L) >90 ML/MIN/1.7 3 M2 10/12/2022 5:28 AM CDT [facility] us June Leonard NP LABORATORY Final Result [facility] [address] [place] [address], [place] [phone] * (ABNORMAL) CBC W/DIFF AUTOMATED (10/12/2022 4:50 AM CDT) WBC 12.5(H) 4.5 - 11.0 x10'3/uL 10/12/2022 5:05 AM CDT [facility] RBC 3.94(L) 4.20 - 5.40 x10'6/uL 10/12/2022 5:05 AM CDT [facility] HGB 11.8(L) 12.0 - 16.0 G/DL 10/12/2022 5:05 AM CDT [facility] HCT 35.3(L) 38.0 - 48.0 % 10/12/2022 5:05 AM CDT [facility] MCV 89.6 81.0 - 99.0 FL 10/12/2022 5:05 AM CDT [facility] MCH 29.9 27.0 - 31.0 PG 10/12/2022 5:05 AM CDT [facility] MCHC 33.4 32.0 - 36.0 G/DL 10/12/2022 5:05 AM CDT [facility] RDW 13.2 11.5 - 14.5 % 10/12/2022 5:05 AM CDT [facility] PLT 286 130 - 400 x10'3/uL 10/12/2022 5:05 AM CDT [facility] MPV 11.4 9.3 - 12.2 FL 10/12/2022 5:05 AM CDT [facility] DIFFERENTIAL TYPE AUTOMATED DIFFERENTIAL 10/12/2022 5:05 AM CDT [facility] NEUTROPHILS % 65.1 % 10/12/2022 5:05 AM CDT [facility] LYMPHOCYTES % 29.1 % 10/12/2022 5:05 AM CDT [facility] MONOCYTES % 4.6 % 10/12/2022 5:05 AM CDT [facility] EOSINOPHILS 0.7 % 10/12/2022 5:05 AM CDT [facility] BASOPHILS 0.3 % 10/12/2022 5:05 AM CDT [facility] IMMATURE GRANS % 0.2 % 10/13/19 5:05 AM CDT [facility] ABS. NEUTROPHILS TOTAL 8.15(H) 1.80 - 7.70 x10'3/uL 10/12/2022 5:05 AM CDT [facility] ABS. LYMPHOCYTES 3.65 1.00 - 4.80 x10'3/uL 10/12/2022 5:05 AM CDT [facility] ABS. MONOCYTES 0.58 0.24 - 0.86 x10'3/uL 10/12/2022 5:05 AM CDT [facility] ABS. EOSINOPHILS 0.09 0.04 - 0.36 x10'3/uL 10/12/2022 5:05 AM CDT [facility] ABS. BASOPHILS 0.04 0.01 - 0.08 x10'3/uL 10/12/2022 5:05 AM CDT [facility] ABS. IMMATURE GRANULOCYTES 0.03 0.00 - 0.49 x10'3/uL 10/12/2022 5:05 AM CDT [facility] 10/12/2022 4:50 AM CDT June Leonard SENIOR ORACLE DBA LABORATORY Final Result [facility] [address] [place] [address], * CULTURE, BACTERIA, BLOOD (10/12/2022 1:04 AM CDT) Pathologist [facility] SPEC DESCRIPTION BLOOD 10/11/2022 9:43 PM CDT [facility] SPECIAL REQUESTS NO SPECIAL REQUEST 10/11/2022 9:43 PM CDT [facility] CULTURE RESULT NO GROWTH 5 DAYS 10/31/2022 8:43 AM CDT [facility] BLOOD SPECIMEN OBTAINED FOR BLOOD CULTURE / Unknown 10/12/2022 1:04 AM CDT 10/12/2022 1:11 AM CDT Lisseth Langston BUTCHER FISH MICROBIOLOGY - GENERAL ORDE RABLES Final Result [facility] [address] [place] [address], [place] [phone] * (ABNORMAL) POCT glucose (10/11/2022 10:43 PM CDT) Pathologist [facility] GLUCOSE POC 138(H) 70 - 99 mg/dL 10/11/2022 10:52 PM CDT [facility] 10/11/2022 10:4 3 PM CDT Janelle Pimentel DO POCT ORDERABLES - DEVICE Fin al Result [facility] [address] [place] [address], * XR CHEST PORTABLE (10/11/2022 10:15 PM [...] John Campos, 10/11/2022 10:19 PM Lisseth Langston BUTCHER FISH GENERAL IMAGING Final Resul t * (ABNORMAL) C-REACTIVE PROTEIN (10/11/2022 9:43 PM CDT) C-REACTIVE PROTEIN 2.22(H) <0.29 mg/dL 10/11/2022 10:11 PM CDT [facility] 10/11/2022 9:43 PM CDT us Lisseth Langston BUTCHER FISH LABORATORY Final Resul t [facility] [address] [place] [address], [place] [phone] * CT ABD+PEL W IV CON ONLY [...] 52(H) <30 MM/HR 10/11/2022 10:06 PM CDT [facility] Comment:Testing performed on [employer] iSED. 10/11/2022 6:26 PM CDT Lisseth Langston BUTCHER FISH LABORATORY Final Resul t [facility] [address] [place] [address], * (ABNORMAL) CBC W/DIFF AUTOMATED (10/11/2022 6:00 PM CDT) WBC 14.7(H) 4.5 - 11.0 x10'3/uL 10/11/2022 6:18 PM CDT [facility] RBC 4.09(L) 4.20 - 5.40 x10'6/uL 10/11/2022 6:18 PM CDT [facility] HGB 12.3 12.0 - 16.0 G/DL 10/11/2022 6:18 PM CDT [facility] HCT 36.5(L) 38.0 - 48.0 % 10/11/2022 6:18 PM CDT [facility] MCV 89.2 81.0 - 99.0 FL 10/11/2022 6:18 PM CDT [facility] MCH 30.1 27.0 - 31.0 PG 10/11/2022 6:18 PM CDT [facility] MCHC 33.7 32.0 - 36.0 G/DL 10/11/2022 6:18 PM CDT [facility] RDW 13.1 11.5 - 14.5 % 10/11/2022 6:18 PM CDT [facility] PLT 300 130 - 400 x10'3/uL 10/11/2022 6:18 PM CDT [facility] MPV 11.4 9.3 - 12.2 FL 10/11/2022 6:18 PM CDT [facility] DIFFERENTIAL TYPE AUTOMATED DIFFERENTIAL 10/11/2022 6:18 PM CDT [facility] NEUTROPHILS % 82.2 % 10/11/2022 6:18 PM CDT [facility] LYMPHOCYTES % 13.0 % 10/11/2022 6:18 PM CDT [facility] MONOCYTES % 3.9 % 10/11/2022 6:18 PM CDT [facility] EOSINOPHILS 0.3 % 10/11/2022 6:18 PM CDT [facility] BASOPHILS 0.2 % 10/11/2022 6:18 PM CDT [facility] IMMATURE GRANS % 0.4 % 10/12/19 6:18 PM CDT [facility] ABS. NEUTROPHILS TOTAL 12.09(H) 1.80 - 7.70 x10'3/uL 10/11/2022 6:18 PM CDT [facility] ABS. LYMPHOCYTES 1.91 1.00 - 4.80 x10'3/uL 10/11/2022 6:18 PM CDT [facility] ABS. MONOCYTES 0.57 0.24 - 0.86 x10'3/uL 10/11/2022 6:18 PM CDT [facility] ABS. EOSINOPHILS 0.05 0.04 - 0.36 x10'3/uL 10/11/2022 6:18 PM CDT [facility] ABS. BASOPHILS 0.03 0.01 - 0.08 x10'3/uL 10/11/2022 6:18 PM CDT [facility] ABS. IMMATURE GRANULOCYTES 0.06 0.00 - 0.49 x10'3/uL 10/11/2022 6:18 PM CDT [facility] 10/11/2022 6:00 PM CDT Carroll MARIE LABORATORY Final Resul t Performing Organization Address City/[facility]/ZIP Co de Phone Number [facility] [address] [place] [address], * TROPONIN, QUANT (10/11/2022 5:40 PM CDT) TROPONIN I HIGH SENSITIVITY 6 <54 ng/L 10/11/2022 6:28 PM CDT [facility] Comment: HIGH DOSES OF BIOTIN, TROPONIN-SPECIFIC AUTOANTIBODIES, AND ANTIBODY THERAPY CONTAINING HAMA MAY INTERFERE WITH THIS TEST RESULT. CORRELATION TO CLINICAL HISTORY AND PRESENTATION RECOMMENDED. 10/11/2022 5:40 PM CDT Tre MARIE LABORATORY Final Resu lt Performing Organization Address City/[facility]/ZIP Co de Phone Number [facility] [address] [place] [address], [place] [phone] * LIPASE (10/11/2022 5:40 PM CDT) LIPASE 34 13 - 75 UNITS/L 10/11/2022 6:28 PM CDT [facility] 10/11/2022 5:40 PM CDT Tre MARIE LABORATORY Final Resu lt [facility] [address] [place] [address], [place] [phone] * (ABNORMAL) COMPREHENSIVE METABOLIC PANEL (10/11/2022 5:40 PM CDT) Pathologist [facility] GLUCOSE 161(H) 70 - 99 MG/DL 10/11/2022 6:28 PM CDT [facility] BUN 20(H) 7 - 18 MG/DL 10/11/2022 6:28 PM CDT [facility] CREATININE S/P/B 1.04(H) 0.55 - 1.02 MG/DL 10/11/2022 6:28 PM CDT [facility] SODIUM S/P/B 139 136 - 145 MMOL/L 10/11/2022 6:28 PM CDT [facility] POTASSIUM S/P/B 4.2 3.5 - 5.1 MMOL/L 10/11/2022 6:28 PM CDT [facility] Comment:SLIGHT HEMOLYSIS, RE SULT MAY BE AFFECTED. CHLORIDE S/P/B 105 100 - 108 MMOL/L 10/11/2022 6:28 PM CDT [facility] CO2 25.4 21 - 32 MMOL/L 10/11/2022 6:28 PM CDT [facility] CALCIUM S/P/B 9.9 8.5 - 10.1 MG/DL 10/11/2022 6:28 PM CDT [facility] BILIRUBIN TOTAL S/P/B 0.7 0.2 - 1.2 MG/DL 10/11/2022 6:28 PM CDT [facility] Comment: THIS ASSAY IS NOT RECOMMENDED FOR PATIENTS UNDERGOING TREATMENT WITH ELTROMBOPAG DUE TO THE POTENTIAL FOR FALSELY ELEVATED RESULTS. TOTAL PROTEIN S/P/B 9.4(H) 6.4 - 8.2 G/DL 10/11/2022 6:28 PM CDT [facility] ALBUMIN S/P/B 3.7 3.4 - 5.0 G/DL 10/11/2022 6:28 PM CDT [facility] AST 28 15 - 37 U/L 10/11/2022 6:28 PM CDT [facility] Comment:SLIGHT HEMOLYSIS, RE SULT MAY BE AFFECTED. ALT 28 14 - 55 U/L 10/11/2022 6:28 PM CDT [facility] ALKALINE PHOSPHATASE S/P/B 145(H) 50 - 136 U/L 10/11/2022 6:28 PM CDT [facility] ANION GAP 8.6 5 - 15 MMOL/L 10/11/2022 6:28 PM CDT [facility] BUN CREATININE RATIO 19.2 6 - 26 10/11/2022 6:28 PM T [facility] A/G RATIO 0.6(L) 1.0 - 2.0 RATIO 10/11/2022 6:28 PM T [facility] GFR ESTIMATE 65(L) >90 ML/MIN/1.7 3 M2 10/11/2022 6:28 PM CDT [facility] [...] CDT Tre MARIE LABORATORY Final Resu lt [facility] [address] [place] [address], * CULTURE URINE (10/11/2022 4:08 PM CDT) SPEC DESCRIPTION URINE CLEAN CATCH 10/11/2022 4:42 PM CDT [facility] SPECIAL REQUESTS NO SPECIAL REQUEST 10/11/2022 4:42 PM CDT [facility] CULTURE RESULT POLYMICROBIAL GROWTH CONSISTENT WITH NORMAL GENITAL AIDEN. ?? SUSCEPTIBILITIES NOT ROUTINELY PERFORMED. 10/13/2022 8:26 AM CDT [facility] URINE SPECIMEN OBTAINED BY CLEAN CATCH PROCEDURE / Unknown 10/11/2022 4:08 PM CDT 10/11/2022 4:41 PM CDT Tre MARIE MICROBIOLOGY - GENERAL ORD ERABLES Final Result [facility] [address] [place] [address], * (ABNORMAL) URINALYSIS (10/11/2022 4:08 PM CDT) SPECIMEN TYPE URINE CLEAN CATCH 10/11/2022 4:09 PM CDT [facility] COLOR (U) LIGHT YELLOW 10/11/2022 4:32 PM CDT [facility] TRANSPARENCY CLEAR 10/11/2022 4:32 PM CDT [facility] SPECIFIC GRAVITY (U) 1.013 1.001 - 1.030 10/11/2022 4:32 PM CDT [facility] U PH 5.5 5.0 - 9.0 10/11/2022 4:32 PM CDT [facility] LEUKOCYTES (U) NEGATIVE NEGATIVE 10/11/2022 4:32 PM CDT [facility] NITRITES NEGATIVE NEGATIVE 10/11/2022 4:32 PM CDT [facility] PROTEIN RANDOM (U) 200(H) <30 MG/DL 10/11/2022 4:32 PM CDT [facility] GLUCOSE (U) 30(A) NORMAL MG/DL 10/11/2022 4:32 PM CDT [facility] KETONES MG/DL (U) NEGATIVE NEGATIVE MG/DL 10/11/2022 4:32 PM CDT [facility] UROBILINOGEN NORMAL NORMAL MG/DL 10/11/2022 4:32 PM CDT [facility] BILIRUBIN (U) NEGATIVE NEGATIVE MG/DL 10/11/2022 4:32 PM CDT [facility] BLOOD (U) NEGATIVE NEGATIVE 10/11/2022 4:32 PM CDT [facility] CULTURE & SENSITIVITY INDICATED? SPECIMEN SETUP FOR CULTURE 10/11/2022 4:32 PM CDT [facility] MUCUS RARE /LPF 10/11/2022 4:32 PM CDT [facility] WBC/HPF 8(H) <6 /HPF 10/11/2022 4:32 PM CDT [facility] RBC/HPF 2 <6 /HPF 10/11/2022 4:32 PM CDT [facility] BACTERIA (U) FEW(A) NONE /HPF 10/11/2022 4:32 PM CDT [facility] SQUAMOUS EPITHELIALS FEW /HPF 10/11/2022 4:32 PM CDT [facility] URINE SPECIMEN OBTAINED BY CLEAN CATCH PROCEDURE / Unknown 10/11/2022 4:08 PM CDT Tre Gunnison PA URINE ORDERABLES Final Res ult Performing Organization Address [facility]/State/ZIP Co de Phone Number [facility] [address] [place] [address], * ECG 12 lead (10/11/2022 3:39 PM CDT) 10/11/2022 3:39 PM CDT Narrative [facility] - 10/11/2022 11:28 PM CDT [facility] [address] [facility] [place] ? Test Date: ?2022-10-11 Pat Name: ? LENA YOUNGBLOOD ?Department: ?? 41 ? Room: ? A329 Gender: ? Female ? Licensed Prosthetist/Orthotist: ?? [id number] : ?1970 ? Requested By: TRE JOHN Order Number: [id number] ? Reading : ?? Leonel Marrero ? Measurements Intervals ?[place] ? Rate: ? 98 ? P: ?46 MT: ? 167 ?QRS: ?17 QRSD: ? 77 ? T: ?23 QT: ? 329 ? QTc: ?422 ? Interpretive Statements SINUS RHYTHM WITH OCCASIONAL VENTRICULAR PREMATURE COMPLEXES NONSPECIFIC T-WAVE ABNORMALITY Compared to ECG 09/29/2022 20:57:16 No significant changes Preliminary EKG interpretation by ED Physician Procedure Note Loenel Marrero MD - 10/11[facility] Test Date: 2022-10-11 Pat Name: LENA YOUNGBLOOD Department: 41 Room: A329 Gender: Female Licensed Prosthetist/Orthotist: [id number] : 1970 Requested By: TRE JOHN Order Number: [id number] Reading MD: Leonel Marrero Measurements Intervals [place] Rate: 98 P: 46 MT: 167 QRS: [...] Depression Total Score: 0 03/08/19 9:30 AM ALGOLOGIST documented as of this encounter Care Teams Edge Bander Operator Relationship Specialty Start Date End Date Abiodun Segura II, MD [address] [place] [address] PCP - General FAMILY PRACTICE 03/09/21 [place] [address] [place] [address] PODIATRY/SURGERY 05/05/22 documented as of this encounter
--- OUTSIDE RECORDS SUMMARY | 2024-03-03 01:21 | XMS_ITS | Encounter Summary ---
Author Organization [facility] Address [address] [place] [address]. [place] [address] [place] [address] Care Team Providers Care Thermoforming Machine Operator Name Role Phone Colton SILVEIRA MD, Abiodun Rushing Primary Care Provider Victoriano Langston MD Unavailable [phone] Encounter Details Date Type Department Care Team (Late st Contact Info) Description 10/16/2022 6:34 PM CDT Anesthesia Event [facility] Endo/[place], [place] [phone] Douglas Loja MD [address] [place], [place] [id number] Anesthesia Record Procedure Summary Procedure Name Responsible [...] Recorded Patient Health Questionnaire-2 Score 0 12/13/2022 [facility] [place] [facility] Occupat ional [facility] - [...] making decisions? No 11/10/2022 3:37 AM Sunshine Segunod RN A ctive * Because of a physical, mental, or emotional condition, do you have serious difficulty concentrating, remembering, or making decisions? Answer Entry Date Author Status No 10/11/2022 11:33 PM Amanda Ballesteros RN Active documented in this encounter Plan of Treatment Upcoming Encounters Date Type Department Care Team (Late st Contact Info) Description 03/14/2024 11:45 AM TOOL GRINDER OPERATOR SURFACE Office Visit [facility] [phone] Marvin Mckeon MD [facility] [address] [place] [address] 03/20/2024 11:30 AM TOOL GRINDER OPERATOR SURFACE Office Visit [facility] Family Medicine - [address] [phone] Abiodun Segura II, MD [address] [place] [phone] documented as of this encounter Goals Goal Patient Goal Type Associated Problems Recent Progress Patient-Stated? Author Family - family caregiver with be involved in care transitions and discharge planning Lifestyle No Natty Cheek, RN documented as of this encounter Visit Diagnoses Not on filedocumented in this encounter Additional Health Concerns Assessment Noted Time PHQ-9 Depression Total Score: 0 03/08/19 22 9:30 AM TOOL GRINDER OPERATOR SURFACE documented as of this encounter Care Teams Thermoforming Machine Operator Relationship Specialty Start Date End Date Abiodun Segura II, MD [address] [place] [address] PCP - General FAMILY PRACTICE 03/09/21 [place] [address] [place] [address] PODIATRY/SURGERY 05/05/22 documented as of this encounter
--- OUTSIDE RECORDS SUMMARY | 2024-03-03 01:22 | XMS_ITS | Encounter Summary ---
Author Organization [facility] Address [address] [place] [address]. [place] [address] [place] [address] Care Team Providers Care Sound Designer Name Role Phone Colton SILVEIRA MD, Abiodun Rushing Primary Care Provider Victoriano Langston MD Unavailable [phone] Encounter Details Date Type Department Care Team [...] st Contact Info) Description 03/14/2024 11:45 AM RIVET THROWER Office Visit [facility] [phone] Marvin Mckeon MD [facility] [address] [place] [address] 03/20/2024 11:30 AM RIVET THROWER Office Visit [facility] Family Medicine - [address] [phone] Abiodun Segura II, MD [address] [place] [phone] documented as of this encounter Visit Diagnoses Not on filedocumented in this encounter Additional Health Concerns Assessment Noted Time PHQ-9 Depression Total Score: 0 03/08/19 22 9:30 AM RIVET THROWER documented as of this encounter Care Teams Sound Designer Relationship Specialty Start Date End Date Abiodun Segura II, MD [address] [place] [address] PCP - General FAMILY PRACTICE 03/09/21 [place] [address] [place] [address] PODIATRY/SURGERY 05/05/22 documented as of this encounter
--- OUTSIDE RECORDS SUMMARY | 2024-03-03 01:22 | XMS_ITS | Encounter Summary ---
Author Organization [facility] Address [address] [place] [address]. [place], [place] [address] [place] [address] Care Team Providers Care Detail Technician Name Role Phone Colton SILVEIRA MD, Yasmin Rushing Primary Care Provider Victoriano Langston MD Unavailable [phone] Reason for Referral * Imaging (Emergency) - Closed Specialty Diagnoses / Procedures Referred By Contac t Referred To Contact RADIOLOGY Procedures MRI FOOT LT WO CON Sofy Carrington MD Phone: tel: fax: Referral ID Status Reason Start Date Expiration Date Visits Re quested Visits Authorized [id number] Closed 09/07/2022 09/08/2023 1 1 * Imaging (Urgent) - Closed Specialty Diagnoses / Procedures Referred By Contac t Referred To Contact RADIOLOGY Procedures MRI FOOT RT WO CON MRI FOOT RT WO CON MRI FOOT RT W CON Nick Hernandes MD Phone: tel: fax: Referral ID Status Reason Start Date Expiration Date Visits Re quested Visits Authorized [id number] Closed 09/03/2022 09/04/2023 1 1 * (Routine) - Closed Specialty Diagnoses / Procedures Referred By Contac t Referred To Contact Procedures OT eval and treat Audie Hightower DO [address] [address] Phone: tel: fax: Referral ID Status Reason Start Date Expiration Date Visits Re quested Visits Authorized [id number] Closed 09/03/2022 09/04/2023 1 1 * (Routine) - Closed Specialty Diagnoses / Procedures Referred By Lyla t Referred To Contact Procedures PT eval and treat Audie Hightower DO [address] [address] Phone: tel: fax: Referral ID Status Reason Start Date Expiration Date Visits Re quested Visits Authorized [id number] Closed 09/03/2022 09/04/2023 1 1 Reason for Visit * Reason Comments Toe Pain Urinary Symptoms * Auth/Cert (Routine) Specialty Diagnoses / Procedures Referred By Contxavier t Referred To Contact Diagnoses Soft tissue infection of foot Soft tissue infection of foot Procedures NONE Referral ID Status Reason Start Date Expiration Date Visits Re quested Visits Authorized [id number] 1 1 Encounter Details Date Type Department Care Team (Late st Contact Info) Description 09/03/2022 2:12 PM CDT - 09/09/2022 11:49 AM CDT Hospital Encounter [facility] [address] [address] [place], [place] [id number] Dior Maldonado, RESIDENT IN DIAGNOSTIC RADIOLOGY [id number] [place] [address] Kirit Yoon MD [address] [address] Arelis Bermeo MD [address] [address] Toe Pain; Urinary Symptoms Discharge [...] Recorded Patient Health Questionnaire-2 Score 0 05/05/2022 [facility] - Occupational Stress [...] Everywhere. * Diabetic Foot Ulcer Discharge Instructions (Citizen Of [place]) [...] Outcome: Adequate for Discharge * Shana Martinez SOFT WORK WRAPPER EXAMINER - 09/09/2022 10:48 AM CDT Spoke with [...] Needed at Discharge No * Shana Martinez SOFT WORK WRAPPER EXAMINER - 09/09/2022 10:47 AM CDT I delivered the Reinforcement Important Message from Medicare (Subsequent [facility]) to Lena Wahl after explaining the form to the patient, the Patient signed the form. The Patient received a copy of the form for their records. 09/09/22 1047 Forms Reinforcement Important Message from Medicare (Subsequent [facility]) Signed Copy delivered * Maximo Ramirez RN [...] No results for input(s): PH, PCO2, PO2, [id number], BICARBWB, BASEDEFICIT, BASEEXCESS in the [id number] hours. Cultures: Blood: Results for orders placed [...] Component Value Units Date/Time CULTURE, BACTERIA, BLOOD [[id number]] Collected: 09/03/221947 Order Status: Sent Lab Status: In process Updated: 09/03/221954 Specimen: BLOOD CULTURE, BACTERIA, BLOOD [[id number]] Collected: 09/03/221935 Order Status: Sent Lab Status: In process Updated: 09/03/221955 Specimen: BLOOD CULTURE URINE [[id number]] Collected: 09/03/22 1452 Order Status: No result [...] night sweats, ongoing for several months now. [place] like it was worse last night. Review [...] No results for input(s): PH, PCO2, PO2, [id number], BICARBWB, BASEDEFICIT, BASEEXCESS in the nvkl399 hours. Cultures: Blood: Results for orders placed [...] Component Value Units Date/Time CULTURE, BACTERIA, BLOOD [[id number]] Collected: 09/03/221947 Order Status: Sent Lab Status: In process Updated: 09/03/221954 Specimen: BLOOD CULTURE, BACTERIA, BLOOD [[id number]] Collected: 09/03/221935 Order Status: Sent Lab Status: In process Updated: 09/03/221955 Specimen: BLOOD CULTURE URINE [[id number]] Collected: 09/03/22 1452 Order Status: No result [...] No results for input(s): PH, PCO2, PO2, [id number], BICARBWB, BASEDEFICIT, BASEEXCESS in the amxu298 hours. Cultures: Blood: Results for orders placed [...] Component Value Units Date/Time CULTURE, BACTERIA, BLOOD [[id number]] Collected: 09/03/221947 Order Status: Sent Lab Status: In process Updated: 09/03/221954 Specimen: BLOOD CULTURE, BACTERIA, BLOOD [[id number]] Collected: 09/03/221935 Order Status: Sent Lab Status: In process Updated: 09/03/221955 Specimen: BLOOD CULTURE URINE [[id number]] Collected: 09/03/22 1452 Order Status: No result [...] mg 25 mg Oral Q4H PRN Nick Hernnades MD enoxaparin (LOVENOX) 40 MG/0.4ML syringe 40 mg 40 mg Subcutaneous Nightly (enoxaparin) Nick Hernandes MD 40 mg at 09/05/222027 famotidine (PEPCID) tablet 20 mg 20 mg Oral 2 times per day Sofy Carrington MD 20 mg at glucagon injection 1 mg 1 mg Intramuscular Once PRN Nick Henrandes MD glucose oral gel 32-64 mL 15-30 [...] No results for input(s): PH, PCO2, PO2, [id number], BICARBWB, BASEDEFICIT, BASEEXCESS in the ldmd683 hours. Cultures: Blood: Results for orders placed [...] Component Value Units Date/Time CULTURE, BACTERIA, BLOOD [[id number]] Collected: 09/03/221947 Order Status: Sent Lab Status: In process Updated: 09/03/221954 Specimen: BLOOD CULTURE, BACTERIA, BLOOD [[id number]] Collected: 09/03/221935 Order Status: Sent Lab Status: In process Updated: 09/03/221955 Specimen: BLOOD CULTURE URINE [[id number]] Collected: 09/03/22 1452 Order Status: No result [...] person. Present for this entire encounter. * [place] Reagan Mathews RN - 09/05/2022 4:18 AM [...] delivered the First Important Message from Medicare ([employer]) to Lena Youngblood and after explaining the form to the patient, the Patient signed the form. The Patient received a copy of the form fortheir records. 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 Cultures: Blood: No results found for this visit on 09/03/22 (from the past 168 hour(s)). Urine: No results found for this visit on 09/03/22 (from the past 168 hour(s)). Microbiology Results (last 14 days) Procedure Component Value Units Date/Time CULTURE, BACTERIA, BLOOD [[id number]] Collected: 09/03/221947 Order Status: Sent Lab Status: In process Updated: 09/03/221954 Specimen: BLOOD CULTURE, BACTERIA, BLOOD [[id number]] Collected: 09/03/221935 Order Status: Sent Lab Status: In process Updated: 09/03/221955 Specimen: BLOOD CULTURE URINE [[id number]] Collected: 09/03/22 1452 Order Status: No result [...] other toes amputated. She had some leftover [place]'s from prior surgery that she has been [...] Arthritis Charcot foot due to diabetes mellitus ([facility]) LEFT FOOT Constipation COVID-19 Diabetes mellitus ([facility]) Diabetic neuropathy ([facility]) High cholesterol Hypertension Renal disorder had blockage [...] < 7 Day Supply 12/26/21 Yes ELLEN Jonhson hydrocortisone (HYTONE) 2.5 % ointment Apply 1 [...] Procedure Component Value Units Date/Time CULTURE URINE [[id number]] Collected: 09/03/22 1452 Order Status: No result Lab Status: In process Updated: 09/03/22 1520 CULTURE, BACTERIA, BLOOD [[id number]] Order Status: Sent Lab Status: No result Specimen: BLOOD CULTURE, BACTERIA, BLOOD [[id number]] Order Status: Sent Lab Status: No result [...] Arthritis Charcot foot due to diabetes mellitus (CMS/[facility]) LEFT FOOT Constipation COVID-19 Diabetes mellitus (CMS/HCC) [...] Blanco RN - 09/03/2022 4:30 PM CDT bid writer attempted blood draw and IV access with [...] FOOT RT 3V Final Result by User, [email or web address] (09/03 1023) EXAMINATION: XR FOOT RT 3V HISTORY: Pain [...] I dictated portions of this note using [email or web address] speech recognition software. Occasional wrong word or sound-alike substitutions may have occurred due to the inherent limitations of voice recognition software. DIOR MALDONADO, SIMRAN 09/03/2022 Dior Maldonado, [facility] 09/03/22 1731 Cosigned by Nicole Jolley MD [...] st Contact Info) Description 03/14/2024 11:45 AM INTERNET MARKETING STRATEGIST Office Visit [facility] [phone] Marvin Mckeon MD [address] [place] [address] 03/20/2024 11:30 AM INTERNET MARKETING STRATEGIST Office Visit [facility] - [place] [phone] Yasmin Segura II, MD [address] [place] [phone] (work) documented as of this encounter Goals [...] (ABNORMAL) POCT glucose (09/09/2022 4:39 AM CDT) [facility] Signature GLUCOSE POC 107(H) 70 - 99 mg/dL 09/09/2022 4:41 AM CDT [facility] 09/09/2022 4:39 AM CDT us Arelis Bermeo MD POCT ORDERABLES - DEVICE Final R esult [facility] [address] [place] [address], * (ABNORMAL) CBC W/DIFF AUTOMATED (09/09/2022 4:39 AM CDT) WBC 13.2(H) 4.5 - 11.0 x10'3/uL 09/09/2022 4:50 AM CDT [facility] RBC 3.97(L) 4.20 - 5.40 x10'6/uL 09/09/2022 4:50 AM CDT [facility] HGB 11.9(L) 12.0 - 16.0 G/DL 09/09/2022 4:50 AM CDT [facility] HCT 35.4(L) 38.0 - 48.0 % 09/09/2022 4:50 AM CDT [facility] MCV 89.2 81.0 - 99.0 FL 09/09/2022 4:50 AM CDT [facility] MCH 30.0 27.0 - 31.0 PG 09/09/2022 4:50 AM CDT [facility] MCHC 33.6 32.0 - 36.0 G/DL 09/09/2022 4:50 AM CDT [facility] RDW 12.7 11.5 - 14.5 % 09/09/2022 4:50 AM CDT [facility] PLT 289 130 - 400 x10'3/uL 09/09/2022 4:50 AM CDT [facility] MPV 10.9 9.3 - 12.2 FL 09/09/2022 4:50 AM CDT [facility] DIFFERENTIAL TYPE MANUAL DIFFERENTIAL 09/09/2022 6:11 AM CDT [facility] SEG NEUTROPHILS 54 % 6:11 AM CDT [facility] LYMPHOCYTES 41 % 09/09/2022 6:11 AM CDT [facility] MONOCYTES 4 % 09/09/2022 6:11 AM CDT [facility] BASOPHILS 1 % 09/09/2022 6:11 AM CDT [facility] ABS. NEUTROPHILS CALCULATED 7.13 1.80 - 7.70 x10'3/uL 09/09/2022 6:11 AM CDT [facility] ABS.LYMPHOCYTES CALCULATED 5.41(H) 1.00 - 4.80 x10'3/uL 09/09/2022 6:11 AM CDT [facility] ABS. MONOCYTES CALCULATED 0.53 0.24 - 0.86 x10'3/uL 09/09/2022 6:11 AM CDT [facility] ABS. BASOPHIL CALCULATED 0.13(H) 0.01 - 0.08 x10'3/uL 09/09/2022 6:11 AM CDT [facility] RBC MORPHOLOGY RBC MORPHOLOGY APPEARS NORMAL. SLIDE REVIEWED. 09/09/2022 6:11 AM CDT [facility] PLT EST. ADEQUATE 09/09/2022 6:11 AM CDT [facility] 09/09/2022 4:39 AM CDT us Sofy Carrington MD LABORATORY Final Resul t [facility] [address] [place] [address], [place] [phone] * (ABNORMAL) BASIC METABOLIC PANEL (09/09/2022 4:39 AM CDT) [facility] GLUCOSE 115(H) 70 - 99 MG/DL 09/09/2022 5:14 AM CDT [facility] BUN 30(H) 7 - 18 MG/DL 09/09/2022 5:14 AM CDT [facility] CREATININE S/P/B 1.11(H) 0.55 - 1.02 MG/DL 09/09/2022 5:14 AM CDT [facility] SODIUM S/P/B 138 136 - 145 MMOL/L 09/09/2022 5:14 AM CDT [facility] POTASSIUM S/P/B 4.3 3.5 - 5.1 MMOL/L 09/09/2022 5:14 AM CDT [facility] CHLORIDE S/P/B 109(H) 100 - 108 MMOL/L 09/09/2022 5:14 AM CDT [facility] CO2 27.5 21 - 32 MMOL/L 09/09/2022 5:14 AM CDT [facility] CALCIUM S/P/B 9.2 8.5 - 10.1 MG/DL 09/09/2022 5:14 AM CDT [facility] ANION GAP 1.5(L) 5 - 15 MMOL/L 09/09/2022 5:14 AM CDT [facility] BUN CREATININE RATIO 27.0(H) 6 - 26 09/09/2022 5:14 AM CDT [facility] GFR ESTIMATE 60(L) >90 ML/MIN/1.7 3 M2 09/09/2022 5:14 AM CDT [facility] Comment: NOTE: eGFR is not calculated for patients <18 years of age. This is an estimated GFR calculation using the new CKD EPI creatinine equation without race and so does not require a correction factor for race. This estimated GFR should not be used for calculating drug doses. 09/09/2022 4:39 AM CDT Sofy Carrington MD LABORATORY Final Resul t [facility] [address] [place] [address], [place] [phone] * (ABNORMAL) POCT glucose (09/08/2022 7:57 PM CDT) GLUCOSE POC 211(H) 70 - 99 mg/dL 09/08/2022 8:05 PM CDT [facility] 09/08/2022 7:57 PM CDT Arelis Bermeo MD POCT ORDERABLES - DEVICE Final R esult Performing Organization Address City/[facility]/ZIP Co de Phone Number [facility] [address] [place] [address], [place] [phone] * (ABNORMAL) URINALYSIS WI REFLEX TO CULTURE (09/08/2022 6:07 PM CDT) SPECIMEN TYPE URINE CLEAN CATCH 09/08/2022 6:12 PM CDT [facility] COLOR (U) LIGHT YELLOW 09/08/2022 6:40 PM CDT [facility] TRANSPARENCY CLEAR 09/08/2022 6:40 PM CDT [facility] SPECIFIC GRAVITY (U) 1.013 1.001 - 1.030 09/08/2022 6:40 PM CDT [facility] U PH 5.5 5.0 - 9.0 09/08/2022 6:40 PM CDT [facility] LEUKOCYTES (U) NEGATIVE NEGATIVE 09/08/2022 6:40 PM CDT [facility] NITRITES NEGATIVE NEGATIVE 09/08/2022 6:40 PM CDT [facility] PROTEIN (U) 30(H) <30 MG/DL 09/08/2022 6:40 PM CDT [facility] GLUCOSE (U) NORMAL NORMAL MG/DL 09/08/2022 6:40 PM CDT [facility] KETONES MG/DL (U) NEGATIVE NEGATIVE MG/DL 09/08/2022 6:40 PM CDT [facility] UROBILINOGEN NORMAL NORMAL MG/DL 09/08/2022 6:40 PM CDT [facility] BILIRUBIN (U) NEGATIVE NEGATIVE MG/DL 09/08/2022 6:40 PM CDT [facility] BLOOD (U) NEGATIVE NEGATIVE 09/08/2022 6:40 PM CDT [facility] CULTURE & SENSITIVITY INDICATED? CULTURE IS NOT INDICATED 09/08/2022 6:40 PM CDT [facility] RBC/HPF 1 <6 /HPF 09/08/2022 6:40 PM CDT [facility] SQUAMOUS EPITHELIALS RARE /HPF 09/08/2022 6:40 PM CDT [facility] URINE SPECIMEN OBTAINED BY CLEAN CATCH PROCEDURE / Unknown 09/08/2022 6:07 PM CDT us Sofy Carrington MD URINE ORDERABLES Final Resu lt [facility] [address] [place] [address], [place] [phone] * (ABNORMAL) POCT glucose (09/08/2022 4:04 PM CDT) GLUCOSE POC 187(H) 70 - 99 mg/dL 09/08/2022 4:06 PM CDT [facility] 09/08/2022 4:04 PM CDT Arelis Bermeo MD POCT ORDERABLES - DEVICE Final R esult [facility] [address] [place] [address], [place] [phone] * (ABNORMAL) POCT glucose (09/08/2022 11:58 AM CDT) GLUCOSE POC 215(H) 70 - 99 mg/dL 09/08/2022 12:02 PM CDT [facility] 09/08/2022 11:5 8 AM CDT Arelis Bermeo MD POCT ORDERABLES - DEVICE Final R esult [facility] [address] [place] [address], [place] [phone] * (ABNORMAL) CBC W/DIFF AUTOMATED (09/08/2022 8:12 AM CDT) WBC 16.8(H) 4.5 - 11.0 x10'3/uL 09/08/2022 8:36 AM CDT [facility] RBC 4.20 4.20 - 5.40 x10'6/uL 09/08/2022 8:36 AM CDT [facility] HGB 12.4 12.0 - 16.0 G/DL 09/08/2022 8:36 AM CDT [facility] HCT 37.5(L) 38.0 - 48.0 % 09/08/2022 8:36 AM CDT [facility] MCV 89.3 81.0 - 99.0 FL 09/08/2022 8:36 AM CDT [facility] MCH 29.5 27.0 - 31.0 PG 09/08/2022 8:36 AM CDT [facility] MCHC 33.1 32.0 - 36.0 G/DL 09/08/2022 8:36 AM CDT [facility] RDW 12.9 11.5 - 14.5 % 09/08/2022 8:36 AM CDT [facility] PLT 306 130 - 400 x10'3/uL 09/08/2022 8:36 AM CDT [facility] MPV 11.1 9.3 - 12.2 FL 09/08/2022 8:36 AM CDT [facility] DIFFERENTIAL TYPE AUTOMATED DIFFERENTIAL 09/08/2022 8:36 AM CDT [facility] NEUTROPHILS % 74.1 % 09/08/2022 8:36 AM CDT [facility] LYMPHOCYTES % 21.3 % 09/08/2022 8:36 AM CDT [facility] MONOCYTES % 3.9 % 09/08/2022 8:36 AM CDT [facility] EOSINOPHILS 0.1 % 09/08/2022 8:36 AM CDT [facility] BASOPHILS 0.2 % 09/08/2022 8:36 AM CDT [facility] IMMATURE GRANS % 0.4 % 09/09/19 8:36 AM CDT [facility] ABS. NEUTROPHILS TOTAL 12.46(H) 1.80 - 7.70 x10'3/uL 09/08/2022 8:36 AM CDT [facility] ABS. LYMPHOCYTES 3.57 1.00 - 4.80 x10'3/uL 09/08/2022 8:36 AM CDT [facility] ABS. MONOCYTES 0.66 0.24 - 0.86 x10'3/uL 09/08/2022 8:36 AM CDT [facility] ABS. EOSINOPHILS 0.01(L) 0.04 - 0.36 x10'3/uL 09/08/2022 8:36 AM CDT [facility] ABS. BASOPHILS 0.03 0.01 - 0.08 x10'3/uL 09/08/2022 8:36 AM CDT [facility] ABS. IMMATURE GRANULOCYTES 0.06 0.00 - 0.49 x10'3/uL 09/08/2022 8:36 AM CDT [facility] 09/08/2022 8:12 AM CDT us Sofy Carrington MD LABORATORY Final Resul t [facility] [address] [place] [address], [place] [phone] * (ABNORMAL) BASIC METABOLIC PANEL (09/08/2022 8:12 AM CDT) [facility] GLUCOSE 120(H) 70 - 99 MG/DL 09/08/2022 8:55 AM CDT [facility] BUN 24(H) 7 - 18 MG/DL 09/08/2022 8:55 AM CDT [facility] CREATININE S/P/B 1.00 0.55 - 1.02 MG/DL 09/08/2022 8:55 AM CDT [facility] SODIUM S/P/B 138 136 - 145 MMOL/L 09/08/2022 8:55 AM CDT [facility] POTASSIUM S/P/B 4.4 3.5 - 5.1 MMOL/L 09/08/2022 8:55 AM CDT [facility] CHLORIDE S/P/B 108 100 - 108 MMOL/L 09/08/2022 8:55 AM CDT [facility] CO2 29.2 21 - 32 MMOL/L 09/08/2022 8:55 AM CDT [facility] CALCIUM S/P/B 9.7 8.5 - 10.1 MG/DL 09/08/2022 8:55 AM CDT [facility] ANION GAP 0.8(L) 5 - 15 MMOL/L 09/08/2022 8:55 AM CDT [facility] BUN CREATININE RATIO 24.0 6 - 26 09/08/2022 8:55 AM CDT [facility] GFR ESTIMATE 68(L) >90 ML/MIN/1.7 3 M2 09/08/2022 8:55 AM CDT [facility] Comment: NOTE: eGFR is not calculated for patients <18 years of age. This is an estimated GFR calculation using the new CKD EPI creatinine equation without race and so does not require a correction factor for race. This estimated GFR should not be used for calculating drug doses. 09/08/2022 8:12 AM CDT us Sofy Carrington MD LABORATORY Final Resul t [facility] [address] [place] [address], * (ABNORMAL) POCT glucose (09/08/2022 6:16 AM CDT) GLUCOSE POC 126(H) 70 - 99 mg/dL 09/08/2022 6:17 AM CDT [facility] 09/08/2022 6:16 AM CDT us Arelis Bermeo MD POCT ORDERABLES - DEVICE Final R esult Performing Organization Address City/[facility] Co de Phone Number [facility] [address] [place] [address], [place] [phone] * (ABNORMAL) POCT glucose (09/08/2022 12:24 AM CDT) GLUCOSE POC 256(H) 70 - 99 mg/dL 09/08/2022 12:26 AM CDT [facility] 09/08/2022 12:2 4 AM CDT us Arelis Bermeo MD POCT ORDERABLES - DEVICE Final R esult Performing Organization Address [facility] Co de Phone Number [facility] [address] [place] [address], [place] [phone] * (ABNORMAL) POCT glucose (09/07/2022 9:20 PM CDT) GLUCOSE POC 264(H) 70 - 99 mg/dL 09/07/2022 9:26 PM CDT [facility] 09/07/2022 9:20 PM CDT us Arelis Bermeo MD POCT ORDERABLES - DEVICE Final R esult Performing Organization Address City/[facility]/ZIP Co de Phone Number [facility] [address] [place] [address], [place] [phone] * MRI FOOT LT WO CON (09/07/2022 [...] - 99 mg/dL 09/07/2022 5:51 PM CDT [facility] 09/07/2022 5:49 PM CDT Arelis Bermeo MD POCT ORDERABLES - DEVICE Final R esult [facility] [address] [place] [address], [place] [phone] * (ABNORMAL) POCT glucose (09/07/2022 4:33 PM CDT) GLUCOSE POC 390(H) 70 - 99 mg/dL 09/07/2022 4:58 PM CDT [facility] 09/07/2022 4:33 PM CDT Arelis Bermeo MD POCT ORDERABLES - DEVICE Final R esult Performing Organization Address City/[facility]/ZIP Co de Phone Number [facility] [address] [place] [address], * TSH W/REFLEX (09/07/2022 12:55 PM CDT) TSH 0.603 0.358 - 3.74 uIU/ML 09/07/2022 1:45 PM CDT [facility] Comment: HIGH DOSES OF BIOTIN MAY INTERFERE WITH THIS TEST RESULT. CORRELATION TO CLINICAL HISTORY AND PRESENTATION RECOMMENDED. FREE T4 NOT INDICATED 09/07/2022 12:5 5 PM CDT Sofy Carrington MD LABORATORY Final Resul t Performing Organization Address [facility] Co de Phone Number [facility] [address] [place] [address], [place] [phone] * (ABNORMAL) BASIC METABOLIC PANEL (09/07/2022 12:54 PM CDT) GLUCOSE 336(H) 70 - 99 MG/DL 09/07/2022 2:49 PM CDT [facility] BUN 27(H) 7 - 18 MG/DL 09/07/2022 2:49 PM CDT [facility] CREATININE S/P/B 1.45(H) 0.55 - 1.02 MG/DL 09/07/2022 2:49 PM CDT [facility] SODIUM S/P/B 132(L) 136 - 145 MMOL/L 09/07/2022 2:49 PM CDT [facility] POTASSIUM S/P/B 5.1 3.5 - 5.1 MMOL/L 09/07/2022 2:49 PM CDT [facility] CHLORIDE S/P/B 102 100 - 108 MMOL/L 09/07/2022 2:49 PM CDT [facility] CO2 21.7 21 - 32 MMOL/L 09/07/2022 2:49 PM CDT [facility] CALCIUM S/P/B 9.6 8.5 - 10.1 MG/DL 09/07/2022 2:49 PM CDT [facility] ANION GAP 8.3 5 - 15 MMOL/L 09/07/2022 2:49 PM CDT [facility] BUN CREATININE RATIO 18.6 6 - 26 09/07/2022 2:49 PM CDT [facility] GFR ESTIMATE 44(L) >90 ML/MIN/1.7 3 M2 09/07/2022 2:49 PM CDT [facility] Comment: NOTE: eGFR is not calculated for patients <18 years of age. This is an estimated GFR calculation using the new CKD EPI creatinine equation without race and so does not require a correction factor for race. This estimated GFR should not be used for calculating drug doses. 09/07/2022 12:5 4 PM CDT Sofy Carrington MD LABORATORY Final Resul t [facility] [address] [place] [address], [place] [phone] * XR FOOT LT 2V (09/07/2022 12:29 [...] - 99 mg/dL 09/07/2022 11:41 AM CDT [facility] 09/07/2022 11:2 0 AM CDT Arelis Bermeo MD POCT ORDERABLES - DEVICE Final R esult Performing Organization Address City/[facility]/ZIP Co de Phone Number [facility] [address] [place] [address], [place] [phone] * (ABNORMAL) POCT glucose (09/07/2022 8:04 AM CDT) GLUCOSE POC 267(H) 70 - 99 mg/dL 09/07/2022 8:07 AM CDT [facility] 09/07/2022 8:04 AM CDT Arelis Bermeo MD POCT ORDERABLES - DEVICE Final R esult Performing Organization Address [place]/[facility] Co de Phone Number [facility] [address] [place] [address], [place] [phone] * (ABNORMAL) CBC W/DIFF AUTOMATED (09/07/2022 4:40 AM CDT) WBC 15.9(H) 4.5 - 11.0 x10'3/uL 09/07/2022 5:07 AM CDT [facility] RBC 4.48 4.20 - 5.40 x10'6/uL 09/07/2022 5:07 AM CDT [facility] HGB 13.4 12.0 - 16.0 G/DL 09/07/2022 5:07 AM CDT [facility] HCT 39.8 38.0 - 48.0 % 09/07/2022 5:07 AM CDT [facility] MCV 88.8 81.0 - 99.0 FL 09/07/2022 5:07 AM CDT [facility] MCH 29.9 27.0 - 31.0 PG 09/07/2022 5:07 AM CDT [facility] MCHC 33.7 32.0 - 36.0 G/DL 09/07/2022 5:07 AM CDT [facility] RDW 12.4 11.5 - 14.5 % 09/07/2022 5:07 AM CDT [facility] PLT 328 130 - 400 x10'3/uL 09/07/2022 5:07 AM CDT [facility] LAB MPV 11.4 9.3 - 12.2 FL 09/07/2022 5:07 AM CDT [facility] DIFFERENTIAL TYPE AUTOMATED DIFFERENTIAL 09/07/2022 5:28 AM CDT [facility] NEUTROPHILS % 88.4 % 09/07/2022 5:28 AM CDT [facility] LYMPHOCYTES % 9.5 % 09/07/2022 5:28 AM CDT [facility] MONOCYTES % 1.3 % 09/07/2022 5:28 AM CDT [facility] EOSINOPHILS 0.0 % 09/07/2022 5:28 AM CDT [facility] BASOPHILS 0.3 % 09/07/2022 5:28 AM CDT [facility] IMMATURE GRANS % 0.5 % 09/08/19 5:28 AM CDT [facility] ABS. NEUTROPHILS TOTAL 14.08(H) 1.80 - 7.70 x10'3/uL 09/07/2022 5:28 AM CDT [facility] ABS. LYMPHOCYTES 1.52 1.00 - 4.80 x10'3/uL 09/07/2022 5:28 AM CDT [facility] ABS. MONOCYTES 0.21(L) 0.24 - 0.86 x10'3/uL 09/07/2022 5:28 AM CDT [facility] ABS. EOSINOPHILS 0.00(L) 0.04 - 0.36 x10'3/uL 09/07/2022 5:28 AM CDT [facility] ABS. BASOPHILS 0.04 0.01 - 0.08 x10'3/uL 09/07/2022 5:28 AM CDT [facility] ABS. IMMATURE GRANULOCYTES 0.08 0.00 - 0.49 x10'3/uL 09/07/2022 5:28 AM CDT [facility] RBC MORPHOLOGY RBC MORPHOLOGY APPEARS NORMAL. SLIDE REVIEWED. 09/07/2022 5:28 AM CDT [facility] PLT EST. ADEQUATE 09/07/2022 5:28 AM CDT [facility] 09/07/2022 4:40 AM CDT Sofy Carrington MD LABORATORY Final Resul t [facility] [address] [place] [address], [place] [phone] * (ABNORMAL) BASIC METABOLIC PANEL (09/07/2022 4:40 AM CDT) GLUCOSE 315(H) 70 - 99 MG/DL 09/07/2022 5:35 AM CDT [facility] BUN 26(H) 7 - 18 MG/DL 09/07/2022 5:35 AM CDT [facility] CREATININE S/P/B 1.51(H) 0.55 - 1.02 MG/DL 09/07/2022 5:35 AM CDT [facility] SODIUM S/P/B 132(L) 136 - 145 MMOL/L 09/07/2022 5:35 AM CDT [facility] POTASSIUM S/P/B 5.4(H) 3.5 - 5.1 MMOL/L 09/07/2022 5:35 AM CDT [facility] CHLORIDE S/P/B 102 100 - 108 MMOL/L 09/07/2022 5:35 AM CDT [facility] CO2 26.2 21 - 32 MMOL/L 09/07/2022 5:35 AM CDT [facility] CALCIUM S/P/B 9.8 8.5 - 10.1 MG/DL 09/07/2022 5:35 AM CDT [facility] ANION GAP 3.8(L) 5 - 15 MMOL/L 09/07/2022 5:35 AM CDT [facility] BUN CREATININE RATIO 17.2 6 - 26 09/07/2022 5:35 AM CDT [facility] GFR ESTIMATE 42(L) >90 ML/MIN/1.7 3 M2 09/07/2022 5:35 AM CDT [facility] Comment: NOTE: eGFR is not calculated for patients <18 years of age. This is an estimated GFR calculation using the new CKD EPI creatinine equation without race and so does not require a correction factor for race. This estimated GFR should not be used for calculating drug doses. 09/07/2022 4:40 AM CDT us Sofy Carrington MD LABORATORY Final Resul t [facility] [address] [place] [address], [place] [phone] * (ABNORMAL) POCT glucose (09/07/2022 2:15 AM CDT) GLUCOSE POC 259(H) 70 - 99 mg/dL 09/07/2022 2:16 AM CDT [facility] 09/07/2022 2:15 AM CDT Arelis Bermeo MD POCT ORDERABLES - DEVICE Final R esult [facility] [address] [place] [address], [place] [phone] * (ABNORMAL) POCT glucose (09/07/2022 12:20 AM CDT) GLUCOSE POC 374(H) 70 - 99 mg/dL 09/07/2022 12:21 AM CDT [facility] 09/07/2022 12:2 0 AM CDT Arelis Bermeo MD POCT ORDERABLES - DEVICE Final R esult [facility] [address] [place] [address], [place] [phone] * (ABNORMAL) POCT glucose (09/06/2022 8:12 PM CDT) GLUCOSE POC 396(H) 70 - 99 mg/dL 09/06/2022 8:47 PM CDT [facility] 09/06/2022 8:12 PM CDT us Arelis Bermeo MD POCT ORDERABLES - DEVICE Final R esult [facility] [address] [place] [address], [place] [phone] * (ABNORMAL) POCT glucose (09/06/2022 5:16 PM CDT) GLUCOSE POC 330(H) 70 - 99 mg/dL 09/06/2022 5:17 PM CDT [facility] 09/06/2022 5:16 PM CDT us Arelis Bermeo MD POCT ORDERABLES - DEVICE Final R esult [facility] [address] [place] [address], [place] [phone] * (ABNORMAL) POCT glucose (09/06/2022 1:29 PM CDT) GLUCOSE POC 139(H) 70 - 99 mg/dL 09/06/2022 1:34 PM CDT [facility] 09/06/2022 1:29 PM CDT Kirit Yoon MD POCT ORDERABLES - DEVICE Final Result Performing Organization Address City/[facility]/ZIP Co de Phone Number [facility] [address] [place] [address], [place] [phone] * CULTURE, ANAEROBIC (09/06/2022 1:00 PM CDT) SPEC DESCRIPTION TOE,RIGHT 09/06/2022 1:30 PM CDT [facility] SPECIAL REQUESTS R 2ND TOE 09/06/2022 1:30 PM CDT [facility] GRAM STAIN RESULT NO WHITE BLOOD CELLS SEEN 09/07/2022 10:45 AM CDT [facility] GRAM STAIN RESULT RARE RED BLOOD CELLS SEEN 09/07/2022 10:45 AM CDT [facility] GRAM STAIN RESULT NO ORGANISMS SEEN 09/07/2022 10:45 AM CDT [facility] CULTURE RESULT NO GROWTH 5 DAYS 09/11/2022 8:27 AM CDT [facility] CULTURE RESULT NOTE: ANAEROBIC CULTURES ARE ROUTINELY SCREENED FOR BOTH AEROBIC AND ANAEROBIC ORGANISMS. 09/11/2022 8:27 AM CDT [facility] WOUND STRUCTURE OF TOE OF RIGHT FOOT / Unknown 09/06/2022 1:00 PM CDT us Hubert Cummings DPM MICROBIOLOGY - GENERAL OR DERABLES Final Result [facility] [address] [place] [address], [place] [phone] * CULTURE, ANAEROBIC (09/06/2022 12:59 PM CDT) SPEC DESCRIPTION TOE,RIGHT 09/06/2022 1:34 PM CDT [facility] SPECIAL REQUESTS R FIRST TOE 09/06/2022 1:34 PM CDT [facility] GRAM STAIN RESULT NO WHITE BLOOD CELLS SEEN 09/07/2022 10:44 AM CDT [facility] GRAM STAIN RESULT RARE RED BLOOD CELLS SEEN 09/07/2022 10:44 AM CDT [facility] GRAM STAIN RESULT NO ORGANISMS SEEN 09/07/2022 10:44 AM CDT [facility] CULTURE RESULT NO GROWTH 5 DAYS 09/11/2022 8:26 AM CDT [facility] CULTURE RESULT NOTE: ANAEROBIC CULTURES ARE ROUTINELY SCREENED FOR BOTH AEROBIC AND ANAEROBIC ORGANISMS. 09/11/2022 8:26 AM CDT [facility] WOUND STRUCTURE OF TOE OF RIGHT FOOT / Unknown 09/06/2022 12:59 PM CDT us Hubert FERNANDOM MICROBIOLOGY - GENERAL OR DERABLES Final Result Performing Organization Address City/[facility]/ZIP Co de Phone Number [facility] [address] [place] [address], [place] [phone] * (ABNORMAL) POCT glucose (09/06/2022 12:09 PM CDT) GLUCOSE POC 124(H) 70 - 99 mg/dL 09/07/2022 3:04 PM CDT [facility] 09/06/2022 12:0 9 PM CDT us Arelis Bermeo MD POCT ORDERABLES - DEVICE Final R esult Performing Organization Address [facility] Co de Phone Number [facility] [address] [place] [address], [place] [phone] * (ABNORMAL) POCT glucose (09/06/2022 6:23 AM CDT) GLUCOSE POC 180(H) 70 - 99 mg/dL 09/06/2022 6:25 AM CDT [facility] 09/06/2022 6:23 AM CDT us Kirit Yoon MD POCT ORDERABLES - DEVICE Final Result Performing Organization Address City/[facility]/ZIP Co de Phone Number [facility] [address] [place] [address], [place] [phone] * (ABNORMAL) CBC W/DIFF AUTOMATED (09/06/2022 4:54 AM CDT) WBC 7.6 4.5 - 11.0 x10'3/uL 09/06/2022 5:37 AM CDT [facility] RBC 3.58(L) 4.20 - 5.40 x10'6/uL 09/06/2022 5:37 AM CDT [facility] HGB 10.8(L) 12.0 - 16.0 G/DL 09/06/2022 5:37 AM CDT [facility] HCT 32.7(L) 38.0 - 48.0 % 09/06/2022 5:37 AM CDT [facility] MCV 91.3 81.0 - 99.0 FL 09/06/2022 5:37 AM CDT [facility] MCH 30.2 27.0 - 31.0 PG 09/06/2022 5:37 AM CDT [facility] MCHC 33.0 32.0 - 36.0 G/DL 09/06/2022 5:37 AM CDT [facility] RDW 12.8 11.5 - 14.5 % 09/06/2022 5:37 AM CDT [facility] PLT 246 130 - 400 x10'3/uL 09/06/2022 5:37 AM CDT [facility] MPV 11.0 9.3 - 12.2 FL 09/06/2022 5:37 AM CDT [facility] DIFFERENTIAL TYPE AUTOMATED DIFFERENTIAL 09/06/2022 5:37 AM CDT [facility] NEUTROPHILS % 45.4 % 09/06/2022 5:37 AM CDT [facility] LYMPHOCYTES % 47.4 % 09/06/2022 5:37 AM CDT [facility] MONOCYTES % 5.4 % 09/06/2022 5:37 AM CDT [facility] EOSINOPHILS 1.2 % 09/06/2022 5:37 AM CDT [facility] BASOPHILS 0.5 % 09/06/2022 5:37 AM CDT [facility] IMMATURE GRANS % 0.1 % 09/07/19 5:37 AM CDT [facility] ABS. NEUTROPHILS TOTAL 3.44 1.80 - 7.70 x10'3/uL 09/06/2022 5:37 AM CDT [facility] ABS. LYMPHOCYTES 3.59 1.00 - 4.80 x10'3/uL 09/06/2022 5:37 AM CDT [facility] ABS. MONOCYTES 0.41 0.24 - 0.86 x10'3/uL 09/06/2022 5:37 AM CDT [facility] ABS. EOSINOPHILS 0.09 0.04 - 0.36 x10'3/uL 09/06/2022 5:37 AM CDT [facility] ABS. BASOPHILS 0.04 0.01 - 0.08 x10'3/uL 09/06/2022 5:37 AM CDT [facility] ABS. IMMATURE GRANULOCYTES 0.01 0.00 - 0.49 x10'3/uL 09/06/2022 5:37 AM CDT [facility] 09/06/2022 4:54 AM CDT Sofy Carrington MD LABORATORY Final Resul t [facility] [address] [place] [address], * (ABNORMAL) BASIC METABOLIC PANEL (09/06/2022 4:54 AM CDT) GLUCOSE 185(H) 70 - 99 MG/DL 09/06/2022 5:26 AM CDT [facility] BUN 22(H) 7 - 18 MG/DL 09/06/2022 5:26 AM CDT [facility] CREATININE S/P/B 1.17(H) 0.55 - 1.02 MG/DL 09/06/2022 5:26 AM CDT [facility] SODIUM S/P/B 138 136 - 145 MMOL/L 09/06/2022 5:26 AM CDT [facility] POTASSIUM S/P/B 4.0 3.5 - 5.1 MMOL/L 09/06/2022 5:26 AM CDT [facility] CHLORIDE S/P/B 107 100 - 108 MMOL/L 09/06/2022 5:26 AM CDT [facility] CO2 27.5 21 - 32 MMOL/L 09/06/2022 5:26 AM T [facility] CALCIUM S/P/B 8.6 8.5 - 10.1 MG/DL 09/06/2022 5:26 AM CDT [facility] ANION GAP 3.5(L) 5 - 15 MMOL/L 09/06/2022 5:26 AM T [facility] BUN CREATININE RATIO 18.8 6 - 26 09/06/2022 5:26 AM T [facility] GFR ESTIMATE 56(L) >90 ML/MIN/1.7 3 M2 09/06/2022 5:26 AM T [facility] Comment: NOTE: eGFR is not calculated for patients <18 years of age. This is an estimated GFR calculation using the new CKD EPI creatinine equation without race and so does not require a correction factor for race. This estimated GFR should not be used for calculating drug doses. 09/06/2022 4:54 AM CDT us Sofy Carrington MD LABORATORY Final Resul t [facility] [address] [place] [address], * (ABNORMAL) POCT glucose (09/06/2022 12:13 AM CDT) [facility] GLUCOSE POC 246(H) 70 - 99 mg/dL 09/06/2022 12:16 AM CDT [facility] 09/06/2022 12:1 3 AM CDT us Kirit Yoon MD POCT ORDERABLES - DEVICE Final Result [facility] [address] [place] [address], * Pathology (09/06/2022 12:00 AM CDT) [facility] COPATH REPORT ?[facility] ? [address] [facility] ? [place], [place] ??[address] ? [id number] ? Department of Pathology ? Pathology Report ? SURGICAL FINAL REPORT Patient Name: LENA YOUNGBLOOD ? : 1970 (Age: 52) ? Location: [address] Gender: F ?Collected Date: 09/06/2022 Med Rec #: [id number] ?Date Received: 09/06/2022 Date Reported: 09/08/2022 Provider: [...] following decalcification. ?? : Billing Fee Code(s): 86889(2), 27905(2) [facility] WOUND STRUCTURE OF TOE OF RIGHT FOOT / Unknown 09/06/2022 12:59 PM CDT Specimen from wound (specimen) STRUCTURE OF TOE OF RIGHT FOOT / Unknown 09/06/2022 1:00 PM CDT us Hubert FERNANDOM PATHOLOGY/CYTOLOGY ORDERA BLES Final Result Performing Organization Address City/[facility]/ZIP Co de Phone Number [facility] [address] [place] [address], [place] [phone] * (ABNORMAL) POCT glucose (09/05/2022 7:29 PM CDT) GLUCOSE POC 214(H) 70 - 99 mg/dL 09/05/2022 7:33 PM CDT [facility] 09/05/2022 7:29 PM CDT us Kirit Yoon MD POCT ORDERABLES - DEVICE Final Result Performing Organization Address City/[facility]/ZIP Co de Phone Number [facility] [address] [place] [address], [place] [phone] * (ABNORMAL) POCT glucose (09/05/2022 4:54 PM CDT) GLUCOSE POC 106(H) 70 - 99 mg/dL 09/05/2022 4:58 PM CDT [facility] 09/05/2022 4:54 PM CDT Kirit Yoon MD POCT ORDERABLES - DEVICE Final Result Performing Organization Address City/[facility]/ZIP Co de Phone Number [facility] [address] [place] [address], * (ABNORMAL) POCT glucose (09/05/2022 12:17 PM CDT) GLUCOSE POC 261(H) 70 - 99 mg/dL 09/05/2022 12:19 PM CDT [facility] 09/05/2022 12:1 7 PM CDT Kirit Yoon MD POCT ORDERABLES - DEVICE Final Result Performing Organization Address City/[facility]/ZIP Co de Phone Number [facility] [address] [place] [address], * LIPASE (09/05/2022 9:56 AM CDT) LIPASE 63 13 - 75 UNITS/L 09/05/2022 10:25 AM CDT [facility] 09/05/2022 9:56 AM CDT Sofy Carrington MD LABORATORY Final Resul t Performing Organization Address City/[facility]/ZIP Co de Phone Number [facility] [address] [place] [address], [place] [phone] * TROPONIN, QUANT (09/05/2022 9:56 AM CDT) TROPONIN I HIGH SENSITIVITY 6 <54 ng/L 09/05/2022 10:42 AM CDT [facility] Comment: HIGH DOSES OF BIOTIN, TROPONIN-SPECIFIC AUTOANTIBODIES, AND ANTIBODY THERAPY CONTAINING HAMA MAY INTERFERE WITH THIS TEST RESULT. CORRELATION TO CLINICAL HISTORY AND PRESENTATION RECOMMENDED. 09/05/2022 9:56 AM CDT Sofy Carrington MD LABORATORY Final Resul t [facility] [address] [place] [address], * (ABNORMAL) BASIC METABOLIC PANEL (09/05/2022 9:56 AM CDT) [facility] GLUCOSE 200(H) 70 - 99 MG/DL 09/05/2022 10:51 AM CDT [facility] BUN 26(H) 7 - 18 MG/DL 09/05/2022 10:51 AM CDT [facility] CREATININE S/P/B 1.41(H) 0.55 - 1.02 MG/DL 09/05/2022 10:51 AM CDT [facility] SODIUM S/P/B 131(L) 136 - 145 MMOL/L 09/05/2022 10:51 AM CDT [facility] POTASSIUM S/P/B 4.9 3.5 - 5.1 MMOL/L 09/05/2022 10:51 AM CDT [facility] Comment:SLIGHT HEMOLYSIS, RE SULT MAY BE AFFECTED. CHLORIDE S/P/B 104 100 - 108 MMOL/L 09/05/2022 10:51 AM CDT [facility] CO2 23.2 21 - 32 MMOL/L 09/05/2022 10:51 AM CDT [facility] CALCIUM S/P/B 9.0 8.5 - 10.1 MG/DL 09/05/2022 10:51 AM CDT [facility] ANION GAP 3.8(L) 5 - 15 MMOL/L 09/05/2022 10:51 AM CDT [facility] BUN CREATININE RATIO 18.4 6 - 26 09/05/2022 10:51 AM CDT [facility] GFR ESTIMATE 45(L) >90 ML/MIN/1.7 3 M2 09/05/2022 10:51 AM CDT [facility] Comment: NOTE: eGFR is not calculated for patients <18 years of age. This is an estimated GFR calculation using the new CKD EPI creatinine equation without race and so does not require a correction factor for race. This estimated GFR should not be used for calculating drug doses. 09/05/2022 9:56 AM CDT Nick Hernandes MD LABORATORY Final Result [facility] [address] [place] [id number], * (ABNORMAL) CBC W/DIFF AUTOMATED (09/05/2022 9:56 AM CDT) WBC 10.9 4.5 - 11.0 x10'3/uL 09/05/2022 10:17 AM CDT [facility] RBC 3.73(L) 4.20 - 5.40 x10'6/uL 09/05/2022 10:17 AM CDT [facility] HGB 11.3(L) 12.0 - 16.0 G/DL 09/05/2022 10:17 AM CDT [facility] HCT 35.5(L) 38.0 - 48.0 % 09/05/2022 10:17 AM CDT [facility] MCV 95.2 81.0 - 99.0 FL 09/05/2022 10:17 AM CDT [facility] MCH 30.3 27.0 - 31.0 PG 09/05/2022 10:17 AM CDT [facility] MCHC 31.8(L) 32.0 - 36.0 G/DL 09/05/2022 10:17 AM CDT [facility] RDW 13.1 11.5 - 14.5 % 09/05/2022 10:17 AM CDT [facility] PLT 285 130 - 400 x10'3/uL 09/05/2022 10:17 AM CDT [facility] MPV 11.3 9.3 - 12.2 FL 09/05/2022 10:17 AM CDT [facility] DIFFERENTIAL TYPE AUTOMATED DIFFERENTIAL 09/05/2022 10:17 AM CDT [facility] NEUTROPHILS % 69.9 % 09/05/2022 10:17 AM CDT [facility] LYMPHOCYTES % 26.0 % 09/05/2022 10:17 AM CDT [facility] MONOCYTES % 2.4 % 09/05/2022 10:17 AM CDT [facility] EOSINOPHILS 0.8 % 09/05/2022 10:17 AM CDT [facility] BASOPHILS 0.5 % 09/05/2022 10:17 AM CDT [facility] IMMATURE GRANS % 0.4 % 09/06/19 10:17 AM CDT [facility] ABS. NEUTROPHILS TOTAL 7.63 1.80 - 7.70 x10'3/uL 09/05/2022 10:17 AM CDT [facility] ABS. LYMPHOCYTES 2.84 1.00 - 4.80 x10'3/uL 09/05/2022 10:17 AM CDT [facility] ABS. MONOCYTES 0.26 0.24 - 0.86 x10'3/uL 09/05/2022 10:17 AM CDT [facility] ABS. EOSINOPHILS 0.09 0.04 - 0.36 x10'3/uL 09/05/2022 10:17 AM CDT [facility] ABS. BASOPHILS 0.05 0.01 - 0.08 x10'3/uL 09/05/2022 10:17 AM CDT [facility] ABS. IMMATURE GRANULOCYTES 0.04 0.00 - 0.49 x10'3/uL 09/05/2022 10:17 AM CDT [facility] 09/05/2022 9:56 AM CDT Nick Hernandes MD LABORATORY Final Result [facility] [address] [place] [address], * ECG 12 lead (09/05/2022 6:59 AM CDT) 09/05/2022 6:59 AM CDT Narrative [facility] - 09/05/2022 8:31 AM CDT ?[facility] ? [address] [place] ? Test Date: ?2022-09-05 Pat Name: ? LENA FORD ?Department: ?? 40 ? Room: ? [id number] Gender: ? Female ? 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 : ?1970 ? Requested By: KIRIT YOON Order Number: [id number] ? Reading MD: ?? Marvin Mckeon ? Measurements Intervals ?[place] ? Rate: ? 96 ? P: ?44 MO: ? 181 ?QRS: ?16 QRSD: ? 86 ? T: ?45 QT: ? 349 ? QTc: ?441 ? 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: : 1970 Requested By: KIRIT YOON Order Number: [id number] Reading MD: Marvin Mckeon Measurements Intervals [place] Rate: 96 P: 44 MO: 181 QRS: 16 QRSD: 86 T: 45 QT: 349 QTc: 441 Interpretive Statements SINUS RHYTHM NONSPECIFIC T-WAVE ABNORMALITY Compared to ECG 01/08/2022 18:02:44 Sinus tachycardia no longer present T-wave abnormality still present us Kirit Yoon MD ECG ORDERABLES Final Re sult Performing Organization Address City/[facility]/ZIP Co de Phone Number [facility] * (ABNORMAL) POCT glucose (09/05/2022 6:05 AM CDT) GLUCOSE POC 193(H) 70 - 99 mg/dL 09/05/2022 6:19 AM CDT [facility] 09/05/2022 6:05 AM CDT Kirit Yoon MD POCT ORDERABLES - DEVICE Final Result Performing Organization Address [facility]/ZIP Co de Phone Number [facility] [address] [place] [address], [place] [phone] * (ABNORMAL) POCT glucose (09/04/2022 8:02 PM CDT) GLUCOSE POC 218(H) 70 - 99 mg/dL 09/04/2022 8:13 PM CDT [facility] 09/04/2022 8:02 PM CDT Kirit Yoon MD POCT ORDERABLES - DEVICE Final Result Performing Organization Address City/State/[facility] Co de Phone Number [facility] [address] [place] [address], [place] [phone] * (ABNORMAL) POCT glucose (09/04/2022 5:27 PM CDT) GLUCOSE POC 126(H) 70 - 99 mg/dL 09/04/2022 5:45 PM CDT [facility] 09/04/2022 5:27 PM CDT Kirit Yoon MD POCT ORDERABLES - DEVICE Final Result Performing Organization Address City/[facility] Co de Phone Number [facility] [address] [place] [address], [place] [phone] * MRI FOOT RT WO CON (09/04/2022 [...] - 99 mg/dL 09/04/2022 12:03 PM CDT [facility] 09/04/2022 12:0 2 PM CDT Kirit Yoon MD POCT ORDERABLES - DEVICE Final Result [facility] [address] [place] [id number], * (ABNORMAL) BASIC METABOLIC PANEL (09/04/2022 8:20 AM CDT) GLUCOSE 162(H) 70 - 99 MG/DL 09/04/2022 9:10 AM CDT [facility] BUN 20(H) 7 - 18 MG/DL 09/04/2022 9:10 AM CDT [facility] CREATININE S/P/B 1.09(H) 0.55 - 1.02 MG/DL 09/04/2022 9:10 AM CDT [facility] SODIUM S/P/B 138 136 - 145 MMOL/L 09/04/2022 9:10 AM CDT [facility] POTASSIUM S/P/B 3.7 3.5 - 5.1 MMOL/L 09/04/2022 9:10 AM CDT [facility] CHLORIDE S/P/B 106 100 - 108 MMOL/L 09/04/2022 9:10 AM CDT [facility] CO2 28.1 21 - 32 MMOL/L 09/04/2022 9:10 AM CDT [facility] CALCIUM S/P/B 8.8 8.5 - 10.1 MG/DL 09/04/2022 9:10 AM CDT [facility] ANION GAP 3.9(L) 5 - 15 MMOL/L 09/04/2022 9:10 AM CDT [facility] BUN CREATININE RATIO 18.3 6 - 26 09/04/2022 9:10 AM CDT [facility] GFR ESTIMATE 62(L) >90 ML/MIN/1.7 3 M2 09/04/2022 9:10 AM CDT [facility] Comment: NOTE: eGFR is not calculated for patients <18 years of age. This is an estimated GFR calculation using the new CKD EPI creatinine equation without race and so does not require a correction factor for race. This estimated GFR should not be used for calculating drug doses. 09/04/2022 8:20 AM CDT Nick Hernandes MD LABORATORY Final Result [facility] [address] [place] [address], [place] [phone] * (ABNORMAL) CBC W/DIFF AUTOMATED (09/04/2022 8:20 AM CDT) WBC 8.7 4.5 - 11.0 x10'3/uL 09/04/2022 8:40 AM CDT [facility] RBC 3.84(L) 4.20 - 5.40 x10'6/uL 09/04/2022 8:40 AM CDT [facility] HGB 11.5(L) 12.0 - 16.0 G/DL 09/04/2022 8:40 AM CDT [facility] HCT 34.5(L) 38.0 - 48.0 % 09/04/2022 8:40 AM CDT [facility] MCV 89.8 81.0 - 99.0 FL 09/04/2022 8:40 AM CDT [facility] MCH 29.9 27.0 - 31.0 PG 09/04/2022 8:40 AM CDT [facility] MCHC 33.3 32.0 - 36.0 G/DL 09/04/2022 8:40 AM CDT [facility] RDW 13.0 11.5 - 14.5 % 09/04/2022 8:40 AM CDT [facility] PLT 267 130 - 400 x10'3/uL 09/04/2022 8:40 AM CDT [facility] MPV 11.3 9.3 - 12.2 FL 09/04/2022 8:40 AM CDT [facility] DIFFERENTIAL TYPE AUTOMATED DIFFERENTIAL 09/04/2022 8:40 AM CDT [facility] NEUTROPHILS % 50.5 % 09/04/2022 8:40 AM CDT [facility] LYMPHOCYTES % 42.8 % 09/04/2022 8:40 AM CDT [facility] MONOCYTES % 4.8 % 09/04/2022 8:40 AM CDT [facility] EOSINOPHILS 1.1 % 09/04/2022 8:40 AM CDT [facility] BASOPHILS 0.6 % 09/04/2022 8:40 AM CDT [facility] IMMATURE GRANS % 0.2 % 09/05/19 8:40 AM CDT [facility] ABS. NEUTROPHILS TOTAL 4.39 1.80 - 7.70 x10'3/uL 09/04/2022 8:40 AM CDT [facility] ABS. LYMPHOCYTES 3.72 1.00 - 4.80 x10'3/uL 09/04/2022 8:40 AM CDT [facility] ABS. MONOCYTES 0.42 0.24 - 0.86 x10'3/uL 09/04/2022 8:40 AM CDT [facility] ABS. EOSINOPHILS 0.10 0.04 - 0.36 x10'3/uL 09/04/2022 8:40 AM CDT [facility] ABS. BASOPHILS 0.05 0.01 - 0.08 x10'3/uL 09/04/2022 8:40 AM CDT [facility] ABS. IMMATURE GRANULOCYTES 0.02 0.00 - 0.49 x10'3/uL 09/04/2022 8:40 AM CDT [facility] 09/04/2022 8:20 AM CDT us Nick Hernandes MD LABORATORY Final Result [place] [id number], [place] [phone] * (ABNORMAL) POCT glucose (09/03/2022 9:14 PM CDT) [facility] GLUCOSE POC 210(H) 70 - 99 mg/dL 09/03/2022 9:15 PM CDT [facility] 09/03/2022 9:14 PM CDT us Kirit Yoon MD POCT ORDERABLES - DEVICE Final Result [address] [place] [address], [place] [phone] * LACTIC ACID (09/03/2022 7:48 PM CDT) [facility] LACTIC ACID VENOUS 1.5 0.4 - 2.0 MMOL/L 09/03/2022 8:17 PM CDT [facility] 09/03/2022 7:48 PM CDT Dior Maldonado [facility] LABORATORY Final Resul t [facility] [address] [place] [id number], [place] [phone] * CULTURE, BACTERIA, BLOOD (09/03/2022 7:48 PM CDT) [facility] SPEC DESCRIPTION BLOOD 09/03/2022 1:30 PM CDT [facility] SPECIAL REQUESTS NO SPECIAL REQUEST 09/03/2022 1:30 PM CDT [facility] CULTURE RESULT NO GROWTH 5 DAYS 09/08/2022 8:32 AM CDT [facility] BLOOD SPECIMEN OBTAINED FOR BLOOD CULTURE / Unknown 09/03/2022 7:48 PM CDT 09/03/2022 7:55 PM CDT Dior [facility]ASQUE[facility] MICROBIOLOGY - GENERAL ORDE RABLES Final Result [facility] [address] [place] [id number], [place] [phone] * CULTURE, BACTERIA, BLOOD (09/03/2022 7:36 PM CDT) Pathologist [facility] SPEC DESCRIPTION BLOOD 09/03/2022 1:30 PM CDT [facility] SPECIAL REQUESTS NO SPECIAL REQUEST 09/03/2022 1:30 PM CDT [facility] CULTURE RESULT NO GROWTH 5 DAYS 09/08/2022 8:32 AM CDT [facility] BLOOD SPECIMEN OBTAINED FOR BLOOD CULTURE / Unknown 09/03/2022 7:36 PM CDT 09/03/2022 7:56 PM CDT Dior Maldonado RESIDENT IN DIAGNOSTIC RADIOLOGY MICROBIOLOGY - GENERAL ORDE [facility] Final Result [facility] [address] [place] [address], [place] [phone] * (ABNORMAL) C-REACTIVE PROTEIN (09/03/2022 2:54 PM CDT) C-REACTIVE PROTEIN 1.99(H) <0.29 mg/dL 09/03/2022 3:44 PM CDT [facility] [facility] 09/03/2022 2:54 PM CDT Dior Maldonado [facility] Final Resul t [facility] [address] [place] [address], [place] [phone] * (ABNORMAL) COMPREHENSIVE METABOLIC PANEL (09/03/2022 2:54 PM CDT) GLUCOSE 230(H) 70 - 99 MG/DL 09/03/2022 3:44 PM CDT [facility] BUN 18 7 - 18 MG/DL 09/03/2022 3:44 PM CDT [facility] CREATININE S/P/B 1.18(H) 0.55 - 1.02 MG/DL 09/03/2022 3:44 PM CDT [facility] SODIUM S/P/B 135(L) 136 - 145 MMOL/L 09/03/2022 3:44 PM CDT [facility] POTASSIUM S/P/B 3.9 3.5 - 5.1 MMOL/L 09/03/2022 3:44 PM CDT [facility] Comment:SLIGHT HEMOLYSIS, RE SULT MAY BE AFFECTED. CHLORIDE S/P/B 104 100 - 108 MMOL/L 09/03/2022 3:44 PM CDT [facility] CO2 28.6 21 - 32 MMOL/L 09/03/2022 3:44 PM CDT [facility] CALCIUM S/P/B 9.3 8.5 - 10.1 MG/DL 09/03/2022 3:44 PM CDT [facility] BILIRUBIN TOTAL S/P/B 0.3 0.2 - 1.2 MG/DL 09/03/2022 3:44 PM CDT [facility] Comment: THIS ASSAY IS NOT RECOMMENDED FOR PATIENTS UNDERGOING TREATMENT WITH ELTROMBOPAG DUE TO THE POTENTIAL FOR FALSELY ELEVATED RESULTS. TOTAL PROTEIN S/P/B 8.8(H) 6.4 - 8.2 G/DL 09/03/2022 3:44 PM CDT [facility] ALBUMIN S/P/B 3.4 3.4 - 5.0 G/DL 09/03/2022 3:44 PM CDT [facility] AST 21 15 - 37 U/L 09/03/2022 3:44 PM CDT [facility] Comment:SLIGHT HEMOLYSIS, RE SULT MAY BE AFFECTED. ALT 23 14 - 55 U/L 09/03/2022 3:44 PM CDT [facility] ALKALINE PHOSPHATASE S/P/B 134 50 - 136 U/L 09/03/2022 3:44 PM CDT [facility] ANION GAP 2.4(L) 5 - 15 MMOL/L 09/03/2022 3:44 PM CDT [facility] BUN CREATININE RATIO 15.3 6 - 26 09/03/2022 3:44 PM CDT [facility] A/G RATIO 0.6(L) 1.0 - 2.0 RATIO 09/03/2022 3:44 PM CDT [facility] GFR ESTIMATE 56(L) >90 ML/MIN/1.7 3 M2 09/03/2022 3:44 PM CDT [facility] Comment: NOTE: eGFR is not calculated for patients <18 years of age. This is an estimated GFR calculation using the new CKD EPI creatinine equation without race and so does not require a correction factor for race. This estimated GFR should not be used for calculating drug doses. 09/03/2022 2:54 PM CDT Dior Maldonado [facility] Final Resul t [facility] [address] [place] [address], * (ABNORMAL) CBC W/DIFF AUTOMATED (09/03/2022 2:54 PM CDT) WBC 10.4 4.5 - 11.0 x10'3/uL 09/03/2022 3:18 PM CDT [facility] RBC 4.08(L) 4.20 - 5.40 x10'6/uL 09/03/2022 3:18 PM CDT [facility] HGB 12.3 12.0 - 16.0 G/DL 09/03/2022 3:18 PM CDT [facility] HCT 36.7(L) 38.0 - 48.0 % 09/03/2022 3:18 PM CDT [facility] MCV 90.0 81.0 - 99.0 FL 09/03/2022 3:18 PM CDT [facility] MCH 30.1 27.0 - 31.0 PG 09/03/2022 3:18 PM CDT [facility] MCHC 33.5 32.0 - 36.0 G/DL 09/03/2022 3:18 PM CDT [facility] RDW 12.8 11.5 - 14.5 % 09/03/2022 3:18 PM CDT [facility] PLT 291 130 - 400 x10'3/uL 09/03/2022 3:18 PM CDT [facility] MPV 11.5 9.3 - 12.2 FL 09/03/2022 3:18 PM CDT [facility] DIFFERENTIAL TYPE AUTOMATED DIFFERENTIAL 09/03/2022 3:18 PM CDT [facility] NEUTROPHILS % 62.9 % 09/03/2022 3:18 PM CDT [facility] LYMPHOCYTES % 31.6 % 09/03/2022 3:18 PM CDT [facility] MONOCYTES % 3.9 % 09/03/2022 3:18 PM CDT [facility] EOSINOPHILS 0.7 % 09/03/2022 3:18 PM CDT [facility] BASOPHILS 0.6 % 09/03/2022 3:18 PM CDT [facility] IMMATURE GRANS % 0.3 % 09/04/19 3:18 PM CDT [facility] ABS. NEUTROPHILS TOTAL 6.55 1.80 - 7.70 x10'3/uL 09/03/2022 3:18 PM CDT [facility] ABS. LYMPHOCYTES 3.29 1.00 - 4.80 x10'3/uL 09/03/2022 3:18 PM CDT [facility] ABS. MONOCYTES 0.41 0.24 - 0.86 x10'3/uL 09/03/2022 3:18 PM CDT [facility] ABS. EOSINOPHILS 0.07 0.04 - 0.36 x10'3/uL 09/03/2022 3:18 PM CDT [facility] ABS. BASOPHILS 0.06 0.01 - 0.08 x10'3/uL 09/03/2022 3:18 PM CDT [facility] ABS. IMMATURE GRANULOCYTES 0.03 0.00 - 0.49 x10'3/uL 09/03/2022 3:18 PM CDT [facility] 09/03/2022 2:54 PM CDT Dior Maldonado [facility] Final Resul t Performing Organization Address [facility] Co de Phone Number [facility] [address] [place] [address], [place] [phone] * CULTURE URINE (09/03/2022 2:52 PM CDT) SPEC DESCRIPTION URINE CLEAN CATCH 09/03/2022 3:20 PM CDT [facility] SPECIAL REQUESTS NO SPECIAL REQUEST 09/03/2022 3:20 PM CDT [facility] CULTURE RESULT NO GROWTH 2 DAYS 09/05/2022 8:38 AM CDT [facility] URINE SPECIMEN OBTAINED BY CLEAN CATCH PROCEDURE / Unknown 09/03/2022 2:52 PM CDT 09/03/2022 3:19 PM CDT us Dior Maldonado [facility] MICROBIOLOGY - GENERAL ORDE RABLES Final Result [facility] [address] [place] [address], [place] [phone] * (ABNORMAL) URINALYSIS (09/03/2022 2:52 PM CDT) SPECIMEN TYPE URINE CLEAN CATCH 09/03/2022 2:53 PM CDT [facility] COLOR (U) LIGHT YELLOW 09/03/2022 3:19 PM CDT [facility] TRANSPARENCY TURBID 09/03/2022 3:19 PM CDT [facility] SPECIFIC GRAVITY (U) 1.016 1.001 - 1.030 09/03/2022 3:19 PM CDT [facility] U PH 5.5 5.0 - 9.0 09/03/2022 3:19 PM CDT [facility] LEUKOCYTES (U) NEGATIVE NEGATIVE 09/03/2022 3:19 PM CDT [facility] NITRITES NEGATIVE NEGATIVE 09/03/2022 3:19 PM CDT [facility] PROTEIN (U) 100(H) <30 MG/DL 09/03/2022 3:19 PM CDT [facility] GLUCOSE (U) 100(A) NORMAL MG/DL 09/03/2022 3:19 PM CDT [facility] KETONES MG/DL (U) NEGATIVE NEGATIVE MG/DL 09/03/2022 3:19 PM CDT [facility] UROBILINOGEN NORMAL NORMAL MG/DL 09/03/2022 3:19 PM CDT [facility] BILIRUBIN (U) NEGATIVE NEGATIVE MG/DL 09/03/2022 3:19 PM CDT [facility] BLOOD (U) TRACE(A) NEGATIVE 09/03/2022 3:19 PM CDT [facility] CULTURE & SENSITIVITY INDICATED? SPECIMEN SETUP FOR CULTURE 09/03/2022 3:19 PM CDT [facility] MUCUS RARE /LPF 09/03/2022 3:19 PM CDT [facility] WBC/HPF 7(H) <6 /HPF 09/03/2022 3:19 PM CDT [facility] RBC/HPF 2 <6 /HPF 09/03/2022 3:19 PM CDT [facility] BACTERIA (U) MODERATE(A) NONE /HPF 09/03/2022 3:19 PM CDT [facility] SQUAMOUS EPITHELIALS FEW /HPF 09/03/2022 3:19 PM CDT [facility] URINE SPECIMEN OBTAINED BY CLEAN CATCH PROCEDURE / Unknown 09/03/2022 2:52 PM CDT us Dior Maldonado RESIDENT IN DIAGNOSTIC RADIOLOGY URINE ORDERABLES Final Resu lt [facility] [address] [place] [address], [place] [phone] * XR FOOT RT 3V (09/03/2022 2:39 [...] Gastelum MD, 09/03/2022 2:40 PM Dior Maldonado [facility] GENERAL IMAGING Final Resul t * (ABNORMAL) SED RATE, ERYTHROCYTE (ESR) (09/03/2022 1:30 PM CDT) ESR 76(H) <30 MM/HR 09/03/2022 3:42 PM CDT [facility] Comment:Testing performed on [employer] iSED. 09/03/2022 1:30 PM CDT Dior Maldonado [facility] Final Resul t [facility] [address] [place] [address], [place] [phone] documented in this encounter Visit Diagnoses Diagnosis Soft tissue infection of foot- Primary Unspecified local infection of skin and subcutaneous tissue Toe necrosis (CMS/HCC HHS/HCC) Other specified disorder of skin Diabetic foot infection (CMS/HCC HHS/HCC) Type II or unspecified type diabetes mellitus with other specified manifestations, not stated as uncontrolled Primary hypertension Unspecified essential hypertension Necrotic toes ([facility]/HCC HHS/HCC) Gangrene documented in this encounter Admitting Diagnoses Diagnosis Soft tissue infection of foot Unspecified local infection of skin and subcutaneous tissue Necrotic toes ([facility]/HCC HHS/HCC) Gangrene documented in this encounter Administered [...] Provider: Candido Mathews, DEANDRE)1757 (Given - Provider: Candiod Mathews, DEANDRE) 0908 (Not Given - Provider: [...] Mathews, DEANDRE)1329 (Given - Provider: Candido Mathews, DEANDRE)1757 [...] 09/09/22 at 1350 1635 (Given - Provider: vIon Jerez RN) 0030 (Given - Provider: Evan [...] Depression Total Score: 0 03/08/19 9:30 AM [employer] documented as of this encounter Care Teams Detail Technician Relationship Specialty Start Date End Date Yasmin Segura II, MD [address] [place] [address] PCP - General FAMILY PRACTICE 03/09/21 [place] [address] [place] [address] PODIATRY/SURGERY 05/05/22 documented as of this encounter
--- OUTSIDE RECORDS SUMMARY | 2024-03-03 01:22 | XMS_ITS | Encounter Summary ---
Author Organization [facility] Address [address] [place] [address]. [place] [address] [place] [address] Care Team Providers Care Production Control Coordinator Name Role Phone Colton SILVEIRA MD, Yasmin Rushing Primary Care Provider Victoriano Langston MD Unavailable [phone] Reason for Visit * Reason Comments Toe Pain Urinary Symptoms * Auth/Cert (Routine) Specialty Diagnoses / Procedures Referred By Contac t Referred To Contact Diagnoses Soft tissue infection of foot Soft tissue infection of foot Procedures NONE Referral ID Status Reason Start Date Expiration Date Visits Re quested Visits Authorized [id number] 1 1 Encounter Details Date Type Department Care Team (Late st Contact Info) Description 09/06/2022 12:30 PM CDT - 09/06/2022 1:38 PM CDT Surgery [facility] [place] [address] Hubert Cummings DPM [address], [place] [address] BONE BIOPSY RIGHT FOOT FIRST AND SECOND [...] Recorded Patient Health Questionnaire-2 Score 0 05/05/2022 [facility] [place] of Occupat ional Health - Occupational Stress [...] Everywhere. * Diabetic Foot Ulcer Discharge Instructions (Fijian) documented in this encounter Medications at Time [...] Outcome: Adequate for Discharge * Shana Martinez, ENGINEER FISHING VESSEL - 09/09/2022 10:48 AM CDT Spoke with [...] Needed at Discharge No * Shana Martinez ENGINEER FISHING VESSEL - 09/09/2022 10:47 AM CDT I delivered [...] No results for input(s): PH, PCO2, PO2, [id number], BICARBWB, BASEDEFICIT, BASEEXCESS in the [id number] hours. Cultures: Blood: Results for orders placed [...] Component Value Units Date/Time CULTURE, BACTERIA, BLOOD [[id number]] Collected: 09/03/221947 Order Status: Sent Lab Status: In process Updated: 09/03/221954 Specimen: BLOOD CULTURE, BACTERIA, BLOOD [[id number]] Collected: 09/03/22 193 Order Status: Sent Lab Status: In process Updated: 09/03/221955 Specimen: BLOOD CULTURE URINE [[id number]] Collected: 09/03/22 1452 Order Status: No result [...] night sweats, ongoing for several months now. [place] like it was worse last night. Review [...] No results for input(s): PH, PCO2, PO2, [id number], BICARBWB, BASEDEFICIT, BASEEXCESS in the [id number] hours. Cultures: Blood: Results for orders placed [...] Component Value Units Date/Time CULTURE, BACTERIA, BLOOD [[id number]] Collected: 09/03/221947 Order Status: Sent Lab Status: In process Updated: 09/03/221954 Specimen: BLOOD CULTURE, BACTERIA, BLOOD [[id number]] Collected: 09/03/221935 Order Status: Sent Lab Status: In process Updated: 09/03/221955 Specimen: BLOOD CULTURE URINE [[id number]] Collected: 09/03/22 1452 Order Status: No result [...] RN - 09/06/2022 12:48 PM CDT 09/06/22 4187 Interdisciplinary Group Conference Team Members Present Physician [...] No results for input(s): PH, PCO2, PO2, [id number], BICARBWB, BASEDEFICIT, BASEEXCESS in the [id number] hours. Cultures: Blood: Results for orders placed [...] Component Value Units Date/Time CULTURE, BACTERIA, BLOOD [[id number]] Collected: 09/03/221947 Order Status: Sent Lab Status: In process Updated: 09/03/221954 Specimen: BLOOD CULTURE, BACTERIA, BLOOD [[id number]] Collected: 09/03/221935 Order Status: Sent Lab Status: In process Updated: 09/03/221955 Specimen: BLOOD CULTURE URINE [[id number]] Collected: 09/03/22 1452 Order Status: No result [...] No results for input(s): PH, PCO2, PO2, [id number], BICARBWB, BASEDEFICIT, BASEEXCESS in the [id number] hours. Cultures: Blood: Results for orders placed [...] Component Value Units Date/Time CULTURE, BACTERIA, BLOOD [[id number]] Collected: 09/03/221947 Order Status: Sent Lab Status: In process Updated: 09/03/221954 Specimen: BLOOD CULTURE, BACTERIA, BLOOD [[id number]] Collected: 09/03/22 193 Order Status: Sent Lab Status: In process Updated: 09/03/221955 Specimen: BLOOD CULTURE URINE [[id number]] Collected: 09/03/22 1452 Order Status: No result [...] delivered the First Important Message from Medicare ([employer]) to Lena Youngblood and after explaining the form to the patient, the Patient signed the form. The Patient received a copy of the form fortheir records. 09/04/22 1434 Forms First Important Message from Medicare ([employer]) Signed Copy delivered * Megha Ballard, OTR [...] 2 Wheeled walker;Wheelchair-manual Prior Function Level of [place] Independent with functional transfers;Independent with ambulation;Needs assistance [...] Home Health: [facility] Caregiver- 5x/week, 4hrs/day Occupation: [employer] Pharmacy: [facility] Financial Concerns: No financial concerns reported PCP/Insurance Plan: Yasmin Segura/[facility] Discharge needs: Patient expects to return [...] wheel walker Behavior Oriented;Cooperative Communication Talks;Understands speaking;Understands Fijian Current Services Being Provided Other Services Personal [...] No results for input(s): PH, PCO2, PO2, [id number], BICARBWB, BASEDEFICIT, BASEEXCESS in the [id number] hours. Cultures: Blood: No results found for this visit on 09/03/22 (from the past 168 hour(s)). Urine: No results found for this visit on 09/03/22 (from the past 168 hour(s)). Microbiology Results (last 14 days) Procedure Component Value Units Date/Time CULTURE, BACTERIA, BLOOD [[id number]] Collected: 09/03/221947 Order Status: Sent Lab Status: In process Updated: 09/03/221954 Specimen: BLOOD CULTURE, BACTERIA, BLOOD [[id number]] Collected: 09/03/221935 Order Status: Sent Lab Status: In process Updated: 09/03/221955 Specimen: BLOOD CULTURE URINE [[id number]] Collected: 09/03/22 1452 Order Status: No result [...] other toes amputated. 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 03/15/22 Yes Yasimn Segura II, MD HUMALOG MIX 75/25 (75-25) [...] Blanco RN - 09/03/2022 4:30 PM CDT smoke room operator attempted blood draw and IV access with [...] FOOT RT 3V Final Result by User, [email or web address] (09/03 6876) EXAMINATION: XR FOOT RT 3V HISTORY: Pain [...] I dictated portions of this note using [employer] speech recognition software. Occasional wrong word or [...] st Contact Info) Description 03/14/2024 11:45 AM MOTION STUDY ENGINEER Office Visit [facility]-[address] [address] Marvin Mckeon MD [facility] [address] [place], [place] [id number] 03/20/2024 11:30 AM MOTION STUDY ENGINEER Office Visit [facility] - [place] [address] [place] [id number] Yasmin Segura II, MD [address] [place], [place] [id number] documented as of this encounter Goals Goal [...] 09/07/2022 4:40 AM CDT POCT GLUCOSE - CORERA DOCKED DEVICE Routine 09/07/2022 2:15 AM CDT [...] - 99 mg/dL 09/09/2022 4:41 AM CDT [facility] 09/09/2022 4:39 AM CDT us Arelis Bermeo MD POCT ORDERABLES - DEVICE Final R esult [facility] [address] [place] [address], * (ABNORMAL) CBC W/DIFF AUTOMATED (09/09/2022 4:39 AM CDT) [facility] WBC 13.2(H) 4.5 - 11.0 x10'3/uL 09/09/2022 4:50 AM CDT [facility] RBC 3.97(L) 4.20 - 5.40 x10'6/uL 09/09/2022 4:50 AM CDT [facility] HGB 11.9(L) 12.0 - 16.0 G/DL 09/09/2022 4:50 AM CDT [facility] HCT 35.4(L) 38.0 - 48.0 % 09/09/2022 4:50 AM CDT [facility] MCV 89.2 81.0 - 99.0 FL 09/09/2022 4:50 AM CDT [facility] MCH 30.0 27.0 - 31.0 PG 09/09/2022 4:50 AM CDT [facility] MCHC 33.6 32.0 - 36.0 G/DL 09/09/2022 4:50 AM CDT [facility] RDW 12.7 11.5 - 14.5 % 09/09/2022 4:50 AM CDT [facility] PLT 289 130 - 400 x10'3/uL 09/09/2022 4:50 AM CDT [facility] MPV 10.9 9.3 - 12.2 FL 09/09/2022 4:50 AM CDT [facility] DIFFERENTIAL TYPE MANUAL DIFFERENTIAL 09/09/2022 6:11 AM CDT [facility] SEG NEUTROPHILS 54 % 6:11 AM CDT [facility] LYMPHOCYTES 41 % 09/09/2022 6:11 AM CDT [facility] MONOCYTES 4 % 09/09/2022 6:11 AM CDT [facility] BASOPHILS 1 % 09/09/2022 6:11 AM CDT [facility] ABS. NEUTROPHILS CALCULATED 7.13 1.80 - 7.70 x10'3/uL 09/09/2022 6:11 AM CDT [facility] ABS.LYMPHOCYTES CALCULATED 5.41(H) 1.00 - 4.80 x10'3/uL 09/09/2022 6:11 AM CDT [facility] ABS. MONOCYTES CALCULATED 0.53 0.24 - 0.86 x10'3/uL 09/09/2022 6:11 AM CDT [facility] ABS. BASOPHIL CALCULATED 0.13(H) 0.01 - 0.08 x10'3/uL 09/09/2022 6:11 AM CDT [facility] RBC MORPHOLOGY RBC MORPHOLOGY APPEARS NORMAL. SLIDE REVIEWED. 09/09/2022 6:11 AM CDT [facility] PLT EST. ADEQUATE 09/09/2022 6:11 AM CDT [facility] 09/09/2022 4:39 AM CDT us Sofy Carrington MD LABORATORY Final Resul t [facility] [address] [place] [address], [place] [phone] * (ABNORMAL) BASIC METABOLIC PANEL (09/09/2022 4:39 AM CDT) GLUCOSE 115(H) 70 - 99 MG/DL 09/09/2022 5:14 AM T [facility] BUN 30(H) 7 - 18 MG/DL 09/09/2022 5:14 AM [facility] CREATININE S/P/B 1.11(H) 0.55 - 1.02 MG/DL 09/09/2022 5:14 AM T [facility] SODIUM S/P/B 138 136 - 145 MMOL/L 09/09/2022 5:14 AM T [facility] POTASSIUM S/P/B 4.3 3.5 - 5.1 MMOL/L 09/09/2022 5:14 AM [facility] CHLORIDE S/P/B 109(H) 100 - 108 MMOL/L 09/09/2022 5:14 AM T [facility] CO2 27.5 21 - 32 MMOL/L 09/09/2022 5:14 AM [facility] CALCIUM S/P/B 9.2 8.5 - 10.1 MG/DL 09/09/2022 5:14 AM [facility] ANION GAP 1.5(L) 5 - 15 MMOL/L 09/09/2022 5:14 AM [facility] BUN CREATININE RATIO 27.0(H) 6 - 26 09/09/2022 5:14 AM [facility] GFR ESTIMATE 60(L) >90 ML/MIN/1.7 3 M2 09/09/2022 5:14 AM [facility] Comment: NOTE: eGFR is not calculated for patients <18 years of age. This is an estimated GFR calculation using the new CKD EPI creatinine equation without race and so does not require a correction factor for race. This estimated GFR should not be used for calculating drug doses. 09/09/2022 4:39 AM CDT us Sofy Carrington MD LABORATORY Final Resul t [facility] [address] [place] [address], [place] [phone] * (ABNORMAL) POCT glucose (09/08/2022 7:57 PM CDT) GLUCOSE POC 211(H) 70 - 99 mg/dL 09/08/2022 8:05 PM CDT [facility] 09/08/2022 7:57 PM CDT Arelis Bermeo MD POCT ORDERABLES - DEVICE Final R esult Performing Organization Address City/[facility]/ZIP Co de Phone Number [facility] [address] [place] [address], [place] [phone] * (ABNORMAL) URINALYSIS WI REFLEX TO CULTURE (09/08/2022 6:07 PM CDT) SPECIMEN TYPE URINE CLEAN CATCH 09/08/2022 6:12 PM CDT [facility] COLOR (U) LIGHT YELLOW 09/08/2022 6:40 PM CDT [facility] TRANSPARENCY CLEAR 09/08/2022 6:40 PM CDT [facility] SPECIFIC GRAVITY (U) 1.013 1.001 - 1.030 09/08/2022 6:40 PM CDT [facility] U PH 5.5 5.0 - 9.0 09/08/2022 6:40 PM CDT [facility] LEUKOCYTES (U) NEGATIVE NEGATIVE 09/08/2022 6:40 PM CDT [facility] NITRITES NEGATIVE NEGATIVE 09/08/2022 6:40 PM CDT [facility] PROTEIN (U) 30(H) <30 MG/DL 09/08/2022 6:40 PM CDT [facility] GLUCOSE (U) NORMAL NORMAL MG/DL 09/08/2022 6:40 PM CDT [facility] KETONES MG/DL (U) NEGATIVE NEGATIVE MG/DL 09/08/2022 6:40 PM CDT [facility] UROBILINOGEN NORMAL NORMAL MG/DL 09/08/2022 6:40 PM CDT [facility] BILIRUBIN (U) NEGATIVE NEGATIVE MG/DL 09/08/2022 6:40 PM CDT [facility] BLOOD (U) NEGATIVE NEGATIVE 09/08/2022 6:40 PM CDT [facility] CULTURE & SENSITIVITY INDICATED? CULTURE IS NOT INDICATED 09/08/2022 6:40 PM CDT [facility] RBC/HPF 1 <6 /HPF 09/08/2022 6:40 PM CDT [facility] SQUAMOUS EPITHELIALS RARE /HPF 09/08/2022 6:40 PM CDT [facility] URINE SPECIMEN OBTAINED BY CLEAN CATCH PROCEDURE / Unknown 09/08/2022 6:07 PM CDT Sofy Carrington MD URINE ORDERABLES Final Resu lt [facility] [address] [place] [address], * (ABNORMAL) POCT glucose (09/08/2022 4:04 PM CDT) GLUCOSE POC 187(H) 70 - 99 mg/dL 09/08/2022 4:06 PM CDT [facility] 09/08/2022 4:04 PM CDT us Arelis Bermeo MD POCT ORDERABLES - DEVICE Final R esult Performing Organization Address City/[facility]/ZIP Co de Phone Number [facility] [address] [place] [address], [place] [phone] * (ABNORMAL) POCT glucose (09/08/2022 11:58 AM CDT) GLUCOSE POC 215(H) 70 - 99 mg/dL 09/08/2022 12:02 PM CDT [facility] 09/08/2022 11:5 8 AM CDT us Arelis Bermeo MD POCT ORDERABLES - DEVICE Final R esult Performing Organization Address City/[facility]/ZIP Co de Phone Number [facility] [address] [place] [address], [place] [phone] * (ABNORMAL) CBC W/DIFF AUTOMATED (09/08/2022 8:12 AM CDT) WBC 16.8(H) 4.5 - 11.0 x10'3/uL 09/08/2022 8:36 AM CDT [facility] RBC 4.20 4.20 - 5.40 x10'6/uL 09/08/2022 8:36 AM CDT [facility] HGB 12.4 12.0 - 16.0 G/DL 09/08/2022 8:36 AM CDT [facility] HCT 37.5(L) 38.0 - 48.0 % 09/08/2022 8:36 AM CDT [facility] MCV 89.3 81.0 - 99.0 FL 09/08/2022 8:36 AM CDT [facility] MCH 29.5 27.0 - 31.0 PG 09/08/2022 8:36 AM CDT [facility] MCHC 33.1 32.0 - 36.0 G/DL 09/08/2022 8:36 AM CDT [facility] RDW 12.9 11.5 - 14.5 % 09/08/2022 8:36 AM CDT [facility] PLT 306 130 - 400 x10'3/uL 09/08/2022 8:36 AM CDT [facility] MPV 11.1 9.3 - 12.2 FL 09/08/2022 8:36 AM CDT [facility] DIFFERENTIAL TYPE AUTOMATED DIFFERENTIAL 09/08/2022 8:36 AM CDT [facility] NEUTROPHILS % 74.1 % 09/08/2022 8:36 AM CDT [facility] LYMPHOCYTES % 21.3 % 09/08/2022 8:36 AM CDT [facility] MONOCYTES % 3.9 % 09/08/2022 8:36 AM CDT [facility] EOSINOPHILS 0.1 % 09/08/2022 8:36 AM CDT [facility] BASOPHILS 0.2 % 09/08/2022 8:36 AM CDT [facility] IMMATURE GRANS % 0.4 % 09/09/19 8:36 AM CDT [facility] ABS. NEUTROPHILS TOTAL 12.46(H) 1.80 - 7.70 x10'3/uL 09/08/2022 8:36 AM CDT [facility] ABS. LYMPHOCYTES 3.57 1.00 - 4.80 x10'3/uL 09/08/2022 8:36 AM CDT [facility] ABS. MONOCYTES 0.66 0.24 - 0.86 x10'3/uL 09/08/2022 8:36 AM CDT [facility] ABS. EOSINOPHILS 0.01(L) 0.04 - 0.36 x10'3/uL 09/08/2022 8:36 AM CDT [facility] ABS. BASOPHILS 0.03 0.01 - 0.08 x10'3/uL 09/08/2022 8:36 AM CDT [facility] ABS. IMMATURE GRANULOCYTES 0.06 0.00 - 0.49 x10'3/uL 09/08/2022 8:36 AM CDT [facility] 09/08/2022 8:12 AM CDT Sofy Carrington MD LABORATORY Final Resul t [facility] [address] [place] [address], [place] [phone] * (ABNORMAL) BASIC METABOLIC PANEL (09/08/2022 8:12 AM CDT) GLUCOSE 120(H) 70 - 99 MG/DL 09/08/2022 8:55 AM CDT [facility] BUN 24(H) 7 - 18 MG/DL 09/08/2022 8:55 AM CDT [facility] CREATININE S/P/B 1.00 0.55 - 1.02 MG/DL 09/08/2022 8:55 AM CDT [facility] SODIUM S/P/B 138 136 - 145 MMOL/L 09/08/2022 8:55 AM CDT [facility] POTASSIUM S/P/B 4.4 3.5 - 5.1 MMOL/L 09/08/2022 8:55 AM CDT [facility] CHLORIDE S/P/B 108 100 - 108 MMOL/L 09/08/2022 8:55 AM CDT [facility] CO2 29.2 21 - 32 MMOL/L 09/08/2022 8:55 AM CDT [facility] CALCIUM S/P/B 9.7 8.5 - 10.1 MG/DL 09/08/2022 8:55 AM CDT [facility] ANION GAP 0.8(L) 5 - 15 MMOL/L 09/08/2022 8:55 AM CDT [facility] BUN CREATININE RATIO 24.0 6 - 26 09/08/2022 8:55 AM CDT [facility] GFR ESTIMATE 68(L) >90 ML/MIN/1.7 3 M2 09/08/2022 8:55 AM CDT [facility] Comment: NOTE: eGFR is not calculated for patients <18 years of age. This is an estimated GFR calculation using the new CKD EPI creatinine equation without race and so does not require a correction factor for race. This estimated GFR should not be used for calculating drug doses. 09/08/2022 8:12 AM CDT Sofy Carrington MD LABORATORY Final Resul t [facility] [address] [place] [address], [place] [phone] * (ABNORMAL) POCT glucose (09/08/2022 6:16 AM CDT) GLUCOSE POC 126(H) 70 - 99 mg/dL 09/08/2022 6:17 AM CDT [facility] 09/08/2022 6:16 AM CDT Arelis Bermeo MD POCT ORDERABLES - DEVICE Final R esult Performing Organization Address City/[facility] Co de Phone Number [facility] [address] [place] [address], [place] [phone] * (ABNORMAL) POCT glucose (09/08/2022 12:24 AM CDT) GLUCOSE POC 256(H) 70 - 99 mg/dL 09/08/2022 12:26 AM CDT [facility] 09/08/2022 12:2 4 AM CDT Arelis Bermeo MD POCT ORDERABLES - DEVICE Final R esult Performing Organization Address [facility] Co de Phone Number [facility] [address] [place] [address], [place] [phone] * (ABNORMAL) POCT glucose (09/07/2022 9:20 PM CDT) GLUCOSE POC 264(H) 70 - 99 mg/dL 09/07/2022 9:26 PM CDT [facility] 09/07/2022 9:20 PM CDT us Arelis Bermeo MD POCT ORDERABLES - DEVICE Final R esult Performing Organization Address City/[facility] Co de Phone Number [facility] [address] [place] [address], [place] [phone] * MRI FOOT LT WO CON (09/07/2022 [...] - 99 mg/dL 09/07/2022 5:51 PM CDT [facility] 09/07/2022 5:49 PM CDT Arelis Bermeo MD POCT ORDERABLES - DEVICE Final R esult Performing Organization Address City/[facility] Co de Phone Number [facility] [address] [place] [address], [place] [phone] * (ABNORMAL) POCT glucose (09/07/2022 4:33 PM CDT) GLUCOSE POC 390(H) 70 - 99 mg/dL 09/07/2022 4:58 PM CDT [facility] 09/07/2022 4:33 PM CDT us Arelis Bermeo MD POCT ORDERABLES - DEVICE Final R esult [facility] [address] [place] [address], * TSH W/REFLEX (09/07/2022 12:55 PM CDT) TSH 0.603 0.358 - 3.74 uIU/ML 09/07/2022 1:45 PM CDT [facility] Comment: HIGH DOSES OF BIOTIN MAY INTERFERE WITH THIS TEST RESULT. CORRELATION TO CLINICAL HISTORY AND PRESENTATION RECOMMENDED. FREE T4 NOT INDICATED 09/07/2022 12:5 5 PM CDT Sofy Carrington MD LABORATORY Final Resul t Performing Organization Address [facility] Co de Phone Number [facility] [address] [place] [address], * (ABNORMAL) BASIC METABOLIC PANEL (09/07/2022 12:54 PM CDT) GLUCOSE 336(H) 70 - 99 MG/DL 09/07/2022 2:49 PM CDT [facility] BUN 27(H) 7 - 18 MG/DL 09/07/2022 2:49 PM CDT [facility] CREATININE S/P/B 1.45(H) 0.55 - 1.02 MG/DL 09/07/2022 2:49 PM CDT [facility] SODIUM S/P/B 132(L) 136 - 145 MMOL/L 09/07/2022 2:49 PM CDT [facility] POTASSIUM S/P/B 5.1 3.5 - 5.1 MMOL/L 09/07/2022 2:49 PM CDT [facility] CHLORIDE S/P/B 102 100 - 108 MMOL/L 09/07/2022 2:49 PM CDT [facility] CO2 21.7 21 - 32 MMOL/L 09/07/2022 2:49 PM CDT [facility] CALCIUM S/P/B 9.6 8.5 - 10.1 MG/DL 09/07/2022 2:49 PM CDT [facility] ANION GAP 8.3 5 - 15 MMOL/L 09/07/2022 2:49 PM CDT [facility] BUN CREATININE RATIO 18.6 6 - 26 09/07/2022 2:49 PM CDT [facility] GFR ESTIMATE 44(L) >90 ML/MIN/1.7 3 M2 09/07/2022 2:49 PM CDT [facility] Comment: NOTE: eGFR is not calculated for patients <18 years of age. This is an estimated GFR calculation using the new CKD EPI creatinine equation without race and so does not require a correction factor for race. This estimated GFR should not be used for calculating drug doses. 09/07/2022 12:5 4 PM CDT Sofy Carrington MD LABORATORY Final Resul t [facility] [address] [place] [address], * XR FOOT LT 2V (09/07/2022 12:29 [...] - 99 mg/dL 09/07/2022 11:41 AM CDT [facility] 09/07/2022 11:2 0 AM CDT Arelis Bermeo MD POCT ORDERABLES - DEVICE Final R esult Performing Organization Address City/[facility]/ZIP Co de Phone Number [facility] [address] [place] [address], * (ABNORMAL) POCT glucose (09/07/2022 8:04 AM CDT) GLUCOSE POC 267(H) 70 - 99 mg/dL 09/07/2022 8:07 AM CDT [facility] 09/07/2022 8:04 AM CDT Arelis Bermeo MD POCT ORDERABLES - DEVICE Final R esult Performing Organization Address [facility] Co de Phone Number [facility] [address] [place] [address], * (ABNORMAL) CBC W/DIFF AUTOMATED (09/07/2022 4:40 AM CDT) WBC 15.9(H) 4.5 - 11.0 x10'3/uL 09/07/2022 5:07 AM CDT [facility] RBC 4.48 4.20 - 5.40 x10'6/uL 09/07/2022 5:07 AM CDT [facility] HGB 13.4 12.0 - 16.0 G/DL 09/07/2022 5:07 AM CDT [facility] HCT 39.8 38.0 - 48.0 % 09/07/2022 5:07 AM CDT [facility] MCV 88.8 81.0 - 99.0 FL 09/07/2022 5:07 AM CDT [facility] MCH 29.9 27.0 - 31.0 PG 09/07/2022 5:07 AM CDT [facility] MCHC 33.7 32.0 - 36.0 G/DL 09/07/2022 5:07 AM CDT [facility] RDW 12.4 11.5 - 14.5 % 09/07/2022 5:07 AM CDT [facility] PLT 328 130 - 400 x10'3/uL 09/07/2022 5:07 AM CDT [facility] MPV 11.4 9.3 - 12.2 FL 09/07/2022 5:07 AM CDT [facility] DIFFERENTIAL TYPE AUTOMATED DIFFERENTIAL 09/07/2022 5:28 AM CDT [facility] NEUTROPHILS % 88.4 % 09/07/2022 5:28 AM CDT [facility] LYMPHOCYTES % 9.5 % 09/07/2022 5:28 AM CDT [facility] MONOCYTES % 1.3 % 09/07/2022 5:28 AM CDT [facility] EOSINOPHILS 0.0 % 09/07/2022 5:28 AM CDT [facility] BASOPHILS 0.3 % 09/07/2022 5:28 AM CDT [facility] IMMATURE GRANS % 0.5 % 09/08/19 5:28 AM CDT [facility] ABS. NEUTROPHILS TOTAL 14.08(H) 1.80 - 7.70 x10'3/uL 09/07/2022 5:28 AM CDT [facility] ABS. LYMPHOCYTES 1.52 1.00 - 4.80 x10'3/uL 09/07/2022 5:28 AM CDT [facility] ABS. MONOCYTES 0.21(L) 0.24 - 0.86 x10'3/uL 09/07/2022 5:28 AM CDT [facility] ABS. EOSINOPHILS 0.00(L) 0.04 - 0.36 x10'3/uL 09/07/2022 5:28 AM CDT [facility] LAB ABS. BASOPHILS 0.04 0.01 - 0.08 x10'3/uL 09/07/2022 5:28 AM CDT [facility] ABS. IMMATURE GRANULOCYTES 0.08 0.00 - 0.49 x10'3/uL 09/07/2022 5:28 AM CDT [facility] RBC MORPHOLOGY RBC MORPHOLOGY APPEARS NORMAL. SLIDE REVIEWED. 09/07/2022 5:28 AM CDT [facility] PLT EST. ADEQUATE 09/07/2022 5:28 AM CDT [facility] 09/07/2022 4:40 AM CDT Sofy Carrington MD LABORATORY Final Resul t [facility] [address] [id number], * (ABNORMAL) BASIC METABOLIC PANEL (09/07/2022 4:40 AM CDT) GLUCOSE 315(H) 70 - 99 MG/DL 09/07/2022 5:35 AM CDT [facility] BUN 26(H) 7 - 18 MG/DL 09/07/2022 5:35 AM CDT [facility] CREATININE S/P/B 1.51(H) 0.55 - 1.02 MG/DL 09/07/2022 5:35 AM CDT [facility] SODIUM S/P/B 132(L) 136 - 145 MMOL/L 09/07/2022 5:35 AM CDT [facility] POTASSIUM S/P/B 5.4(H) 3.5 - 5.1 MMOL/L 09/07/2022 5:35 AM CDT [facility] CHLORIDE S/P/B 102 100 - 108 MMOL/L 09/07/2022 5:35 AM CDT [facility] CO2 26.2 21 - 32 MMOL/L 09/07/2022 5:35 AM CDT [facility] CALCIUM S/P/B 9.8 8.5 - 10.1 MG/DL 09/07/2022 5:35 AM CDT [facility] ANION GAP 3.8(L) 5 - 15 MMOL/L 09/07/2022 5:35 AM CDT [facility] BUN CREATININE RATIO 17.2 6 - 26 09/07/2022 5:35 AM CDT [facility] GFR ESTIMATE 42(L) >90 ML/MIN/1.7 3 M2 09/07/2022 5:35 AM CDT [facility] Comment: NOTE: eGFR is not calculated for patients <18 years of age. This is an estimated GFR calculation using the new CKD EPI creatinine equation without race and so does not require a correction factor for race. This estimated GFR should not be used for calculating drug doses. 09/07/2022 4:40 AM CDT Sofy Carrington MD LABORATORY Final Resul t [facility] [address] [place] [address], [place] [phone] * (ABNORMAL) POCT glucose (09/07/2022 2:15 AM CDT) GLUCOSE POC 259(H) 70 - 99 mg/dL 09/07/2022 2:16 AM CDT [facility] 09/07/2022 2:15 AM CDT Arelis Bermeo MD POCT ORDERABLES - DEVICE Final R esult [facility] [address] [place] [address], [place] [phone] * (ABNORMAL) POCT glucose (09/07/2022 12:20 AM CDT) GLUCOSE POC 374(H) 70 - 99 mg/dL 09/07/2022 12:21 AM CDT [facility] 09/07/2022 12:2 0 AM CDT us Arelis Bermeo MD POCT ORDERABLES - DEVICE Final R esult Performing Organization Address City/[facility]/ZIP Co de Phone Number [facility] [address] [place] [address], [place] [phone] * (ABNORMAL) POCT glucose (09/06/2022 8:12 PM CDT) GLUCOSE POC 396(H) 70 - 99 mg/dL 09/06/2022 8:47 PM CDT [facility] 09/06/2022 8:12 PM CDT us Arelis Bermeo MD POCT ORDERABLES - DEVICE Final R esult Performing Organization Address City/[facility]/ZIP Co de Phone Number [facility] [address] [place] [address], [place] [phone] * (ABNORMAL) POCT glucose (09/06/2022 5:16 PM CDT) GLUCOSE POC 330(H) 70 - 99 mg/dL 09/06/2022 5:17 PM CDT [facility] 09/06/2022 5:16 PM CDT us Arelis Bermeo MD POCT ORDERABLES - DEVICE Final R esult Performing Organization Address City/[facility]/ZIP Co de Phone Number [facility] [address] [place] [address], [place] [phone] * (ABNORMAL) POCT glucose (09/06/2022 1:29 PM CDT) GLUCOSE POC 139(H) 70 - 99 mg/dL 09/06/2022 1:34 PM CDT [facility] 09/06/2022 1:29 PM CDT us Kirit Yoon MD POCT ORDERABLES - DEVICE Final Result Performing Organization Address City/[facility] Co de Phone Number [facility] [address] [place] [address], [place] [phone] * CULTURE, ANAEROBIC (09/06/2022 1:00 PM CDT) SPEC DESCRIPTION TOE,RIGHT 09/06/2022 1:30 PM CDT [facility] SPECIAL REQUESTS R 2ND TOE 09/06/2022 1:30 PM CDT [facility] GRAM STAIN RESULT NO WHITE BLOOD CELLS SEEN 09/07/2022 10:45 AM CDT [facility] GRAM STAIN RESULT RARE RED BLOOD CELLS SEEN 09/07/2022 10:45 AM CDT [facility] GRAM STAIN RESULT NO ORGANISMS SEEN 09/07/2022 10:45 AM CDT [facility] CULTURE RESULT NO GROWTH 5 DAYS 09/11/2022 8:27 AM CDT [facility] CULTURE RESULT NOTE: ANAEROBIC CULTURES ARE ROUTINELY SCREENED FOR BOTH AEROBIC AND ANAEROBIC ORGANISMS. 09/11/2022 8:27 AM CDT [facility] WOUND STRUCTURE OF TOE OF RIGHT FOOT / Unknown 09/06/2022 1:00 PM CDT Hubert FERNANDO MICROBIOLOGY - GENERAL OR DERABLES Final Result Performing Organization Address [facility]/ZIP Co de Phone Number [facility] [address] [place] [address], [place] [phone] * CULTURE, ANAEROBIC (09/06/2022 12:59 PM CDT) SPEC DESCRIPTION TOE,RIGHT 09/06/2022 1:34 PM CDT [facility] SPECIAL REQUESTS R FIRST TOE 09/06/2022 1:34 PM CDT [facility] GRAM STAIN RESULT NO WHITE BLOOD CELLS SEEN 09/07/2022 10:44 AM CDT [facility] GRAM STAIN RESULT RARE RED BLOOD CELLS SEEN 09/07/2022 10:44 AM CDT [facility] GRAM STAIN RESULT NO ORGANISMS SEEN 09/07/2022 10:44 AM CDT [facility] CULTURE RESULT NO GROWTH 5 DAYS 09/11/2022 8:26 AM CDT [facility] CULTURE RESULT NOTE: ANAEROBIC CULTURES ARE ROUTINELY SCREENED FOR BOTH AEROBIC AND ANAEROBIC ORGANISMS. 09/11/2022 8:26 AM CDT [facility] WOUND STRUCTURE OF TOE OF RIGHT FOOT / Unknown 09/06/2022 12:59 PM CDT Hubert Cummings DPM MICROBIOLOGY - GENERAL OR DERABLES Final Result [facility] [address] [place] [address], * (ABNORMAL) POCT glucose (09/06/2022 12:09 PM CDT) GLUCOSE POC 124(H) 70 - 99 mg/dL 09/07/2022 3:04 PM CDT [facility] 09/06/2022 12:0 9 PM CDT Arelis Bermeo MD POCT ORDERABLES - DEVICE Final R esult [facility] [address] [place] [address], * (ABNORMAL) POCT glucose (09/06/2022 6:23 AM CDT) GLUCOSE POC 180(H) 70 - 99 mg/dL 09/06/2022 6:25 AM CDT [facility] 09/06/2022 6:23 AM CDT Kirit Yoon MD POCT ORDERABLES - DEVICE Final Result [facility] [address] [place] [address], * (ABNORMAL) CBC W/DIFF AUTOMATED (09/06/2022 4:54 AM CDT) WBC 7.6 4.5 - 11.0 x10'3/uL 09/06/2022 5:37 AM CDT [facility] RBC 3.58(L) 4.20 - 5.40 x10'6/uL 09/06/2022 5:37 AM CDT [facility] HGB 10.8(L) 12.0 - 16.0 G/DL 09/06/2022 5:37 AM CDT [facility] HCT 32.7(L) 38.0 - 48.0 % 09/06/2022 5:37 AM CDT [facility] MCV 91.3 81.0 - 99.0 FL 09/06/2022 5:37 AM CDT [facility] MCH 30.2 27.0 - 31.0 PG 09/06/2022 5:37 AM CDT [facility] MCHC 33.0 32.0 - 36.0 G/DL 09/06/2022 5:37 AM CDT [facility] RDW 12.8 11.5 - 14.5 % 09/06/2022 5:37 AM CDT [facility] PLT 246 130 - 400 x10'3/uL 09/06/2022 5:37 AM CDT [facility] MPV 11.0 9.3 - 12.2 FL 09/06/2022 5:37 AM CDT [facility] DIFFERENTIAL TYPE AUTOMATED DIFFERENTIAL 09/06/2022 5:37 AM CDT [facility] NEUTROPHILS % 45.4 % 09/06/2022 5:37 AM CDT [facility] LYMPHOCYTES % 47.4 % 09/06/2022 5:37 AM CDT [facility] MONOCYTES % 5.4 % 09/06/2022 5:37 AM CDT [facility] EOSINOPHILS 1.2 % 09/06/2022 5:37 AM CDT [facility] BASOPHILS 0.5 % 09/06/2022 5:37 AM CDT [facility] IMMATURE GRANS % 0.1 % 09/07/19 5:37 AM CDT [facility] ABS. NEUTROPHILS TOTAL 3.44 1.80 - 7.70 x10'3/uL 09/06/2022 5:37 AM CDT [facility] ABS. LYMPHOCYTES 3.59 1.00 - 4.80 x10'3/uL 09/06/2022 5:37 AM CDT [facility] ABS. MONOCYTES 0.41 0.24 - 0.86 x10'3/uL 09/06/2022 5:37 AM CDT [facility] ABS. EOSINOPHILS 0.09 0.04 - 0.36 x10'3/uL 09/06/2022 5:37 AM CDT [facility] ABS. BASOPHILS 0.04 0.01 - 0.08 x10'3/uL 09/06/2022 5:37 AM CDT [facility] ABS. IMMATURE GRANULOCYTES 0.01 0.00 - 0.49 x10'3/uL 09/06/2022 5:37 AM CDT [facility] 09/06/2022 4:54 AM CDT Sofy Carrington MD LABORATORY Final Resul t [facility] [address] [place] [address], * (ABNORMAL) BASIC METABOLIC PANEL (09/06/2022 4:54 AM CDT) GLUCOSE 185(H) 70 - 99 MG/DL 09/06/2022 5:26 AM CDT [facility] BUN 22(H) 7 - 18 MG/DL 09/06/2022 5:26 AM CDT [facility] CREATININE S/P/B 1.17(H) 0.55 - 1.02 MG/DL 09/06/2022 5:26 AM CDT [facility] SODIUM S/P/B 138 136 - 145 MMOL/L 09/06/2022 5:26 AM CDT [facility] POTASSIUM S/P/B 4.0 3.5 - 5.1 MMOL/L 09/06/2022 5:26 AM CDT [facility] CHLORIDE S/P/B 107 100 - 108 MMOL/L 09/06/2022 5:26 AM CDT [facility] CO2 27.5 21 - 32 MMOL/L 09/06/2022 5:26 AM CDT [facility] CALCIUM S/P/B 8.6 8.5 - 10.1 MG/DL 09/06/2022 5:26 AM CDT [facility] ANION GAP 3.5(L) 5 - 15 MMOL/L 09/06/2022 5:26 AM CDT [facility] BUN CREATININE RATIO 18.8 6 - 26 09/06/2022 5:26 AM CDT [facility] GFR ESTIMATE 56(L) >90 ML/MIN/1.7 3 M2 09/06/2022 5:26 AM CDT [facility] Comment: NOTE: eGFR is not calculated for patients <18 years of age. This is an estimated GFR calculation using the new CKD EPI creatinine equation without race and so does not require a correction factor for race. This estimated GFR should not be used for calculating drug doses. 09/06/2022 4:54 AM CDT us Sofy Carrington MD LABORATORY Final Resul t [facility] [address] [place] [address], [place] [phone] * (ABNORMAL) POCT glucose (09/06/2022 12:13 AM CDT) [facility] GLUCOSE POC 246(H) 70 - 99 mg/dL 09/06/2022 12:16 AM CDT [facility] 09/06/2022 12:1 3 AM CDT us Kirit Yoon MD POCT ORDERABLES - DEVICE Final Result [facility] [address] [facility] [place] [address], * Pathology (09/06/2022 12:00 AM CDT) [facility] COPATH REPORT ?[facility] ? [address] ? [place], [place] ??[address] ? [phone] ? Department of Pathology ? Pathology Report ? SURGICAL FINAL REPORT Patient Name: LENA YOUNGBLOOD ? : 1970 (Age: 52) ? Location: [address] Gender: F ?Collected Date: 09/06/2022 Med Rec #: [id number] ?Date Received: 09/06/2022 Date Reported: 09/08/2022 Provider: [facility] ?KIRIT YOON MD ?HUBERT CUMMINGS DPM Specimen(s) [...] following decalcification. ?? : Billing Fee Code(s): 21694(2), 25650(2) [facility] WOUND STRUCTURE OF TOE OF RIGHT FOOT / Unknown 09/06/2022 12:59 PM CDT Specimen from wound (specimen) STRUCTURE OF TOE OF RIGHT FOOT / Unknown 09/06/2022 1:00 PM CDT us Hubert FERNANDOM PATHOLOGY/CYTOLOGY ORDERA BLES Final Result Performing Organization Address City/[facility] Co de Phone Number [facility] [address] [place] [address], [place] [phone] * (ABNORMAL) POCT glucose (09/05/2022 7:29 PM CDT) GLUCOSE POC 214(H) 70 - 99 mg/dL 09/05/2022 7:33 PM CDT [facility] 09/05/2022 7:29 PM CDT us Kirit Yoon MD POCT ORDERABLES - DEVICE Final Result [facility] [address] [place] [address], [place] [phone] * (ABNORMAL) POCT glucose (09/05/2022 4:54 PM CDT) GLUCOSE POC 106(H) 70 - 99 mg/dL 09/05/2022 4:58 PM CDT [facility] 09/05/2022 4:54 PM CDT Kirit Yoon MD POCT ORDERABLES - DEVICE Final Result Performing Organization Address City/[facility]/ZIP Co de Phone Number [facility] [address] [place] [address], [place] [phone] * (ABNORMAL) POCT glucose (09/05/2022 12:17 PM CDT) Pathologist [facility] GLUCOSE POC 261(H) 70 - 99 mg/dL 09/05/2022 12:19 PM CDT [facility] 09/05/2022 12:1 7 PM CDT Kirit Yoon MD POCT ORDERABLES - DEVICE Final Result Performing Organization Address [facility] Co de Phone Number [facility] [address] [place] [address], * LIPASE (09/05/2022 9:56 AM CDT) Pathologist [facility] LIPASE 63 13 - 75 UNITS/L 09/05/2022 10:25 AM CDT [facility] 09/05/2022 9:56 AM CDT Sofy Carrington MD LABORATORY Final Resul t Performing Organization Address City/[facility]/ZIP Co de Phone Number [facility] [address] [place] [address], [place] [phone] * TROPONIN, QUANT (09/05/2022 9:56 AM CDT) Pathologist [facility] TROPONIN I HIGH SENSITIVITY 6 <54 ng/L 09/05/2022 10:42 AM CDT [facility] Comment: HIGH DOSES OF BIOTIN, TROPONIN-SPECIFIC AUTOANTIBODIES, AND ANTIBODY THERAPY CONTAINING HAMA MAY INTERFERE WITH THIS TEST RESULT. CORRELATION TO CLINICAL HISTORY AND PRESENTATION RECOMMENDED. 09/05/2022 9:56 AM CDT Sofy Carrington MD LABORATORY Final Resul t [facility] [address] [place] [address], * (ABNORMAL) BASIC METABOLIC PANEL (09/05/2022 9:56 AM CDT) GLUCOSE 200(H) 70 - 99 MG/DL 09/05/2022 10:51 AM CDT [facility] BUN 26(H) 7 - 18 MG/DL 09/05/2022 10:51 AM CDT [facility] CREATININE S/P/B 1.41(H) 0.55 - 1.02 MG/DL 09/05/2022 10:51 AM CDT [facility] SODIUM S/P/B 131(L) 136 - 145 MMOL/L 09/05/2022 10:51 AM CDT [facility] POTASSIUM S/P/B 4.9 3.5 - 5.1 MMOL/L 09/05/2022 10:51 AM CDT [facility] Comment:SLIGHT HEMOLYSIS, RE SULT MAY BE AFFECTED. CHLORIDE S/P/B 104 100 - 108 MMOL/L 09/05/2022 10:51 AM CDT [facility] CO2 23.2 21 - 32 MMOL/L 09/05/2022 10:51 AM CDT [facility] CALCIUM S/P/B 9.0 8.5 - 10.1 MG/DL 09/05/2022 10:51 AM CDT [facility] ANION GAP 3.8(L) 5 - 15 MMOL/L 09/05/2022 10:51 AM CDT [facility] BUN CREATININE RATIO 18.4 6 - 26 09/05/2022 10:51 AM CDT [facility] GFR ESTIMATE 45(L) >90 ML/MIN/1.7 3 M2 09/05/2022 10:51 AM CDT [facility] Comment: NOTE: eGFR is not calculated for patients <18 years of age. This is an estimated GFR calculation using the new CKD EPI creatinine equation without race and so does not require a correction factor for race. This estimated GFR should not be used for calculating drug doses. 09/05/2022 9:56 AM CDT Nick Hernandes MD LABORATORY Final Result [facility] [address] [address], * (ABNORMAL) CBC W/DIFF AUTOMATED (09/05/2022 9:56 AM CDT) WBC 10.9 4.5 - 11.0 x10'3/uL 09/05/2022 10:17 AM CDT [facility] RBC 3.73(L) 4.20 - 5.40 x10'6/uL 09/05/2022 10:17 AM CDT [facility] HGB 11.3(L) 12.0 - 16.0 G/DL 09/05/2022 10:17 AM CDT [facility] HCT 35.5(L) 38.0 - 48.0 % 09/05/2022 10:17 AM CDT [facility] MCV 95.2 81.0 - 99.0 FL 09/05/2022 10:17 AM CDT [facility] MCH 30.3 27.0 - 31.0 PG 09/05/2022 10:17 AM CDT [facility] MCHC 31.8(L) 32.0 - 36.0 G/DL 09/05/2022 10:17 AM CDT [facility] RDW 13.1 11.5 - 14.5 % 09/05/2022 10:17 AM CDT [facility] PLT 285 130 - 400 x10'3/uL 09/05/2022 10:17 AM CDT [facility] MPV 11.3 9.3 - 12.2 FL 09/05/2022 10:17 AM CDT [facility] DIFFERENTIAL TYPE AUTOMATED DIFFERENTIAL 09/05/2022 10:17 AM T [facility] NEUTROPHILS % 69.9 % 09/05/2022 10:17 AM CDT [facility] LYMPHOCYTES % 26.0 % 09/05/2022 10:17 AM CDT [facility] MONOCYTES % 2.4 % 09/05/2022 10:17 AM CDT [facility] EOSINOPHILS 0.8 % 09/05/2022 10:17 AM T [facility] BASOPHILS 0.5 % 09/05/2022 10:17 AM CDT [facility] IMMATURE GRANS % 0.4 % 09/06/19 10:17 AM T [facility] ABS. NEUTROPHILS TOTAL 7.63 1.80 - 7.70 x10'3/uL 09/05/2022 10:17 AM CDT [facility] ABS. LYMPHOCYTES 2.84 1.00 - 4.80 x10'3/uL 09/05/2022 10:17 AM CDT [facility] ABS. MONOCYTES 0.26 0.24 - 0.86 x10'3/uL 09/05/2022 10:17 AM CDT [facility] ABS. EOSINOPHILS 0.09 0.04 - 0.36 x10'3/uL 09/05/2022 10:17 AM CDT [facility] ABS. BASOPHILS 0.05 0.01 - 0.08 x10'3/uL 09/05/2022 10:17 AM CDT [facility] ABS. IMMATURE GRANULOCYTES 0.04 0.00 - 0.49 x10'3/uL 09/05/2022 10:17 AM CDT [facility] 09/05/2022 9:56 AM CDT us Nick Hernandes MD LABORATORY Final Result Performing Organization Address City/State/[facility] Co de Phone Number [facility] [address] [id number], * ECG 12 lead (09/05/2022 6:59 AM CDT) 09/05/2022 6:59 AM CDT Narrative [facility] ([facility]) RAD - 09/05/2022 8:31 AM CDT ?[facility] [place] ? [address] [place] [facility] [place] ? Test Date: ?2022-09-05 Pat Name: ? LENA JALLOHRY ?Department: ?? 40 ? Room: ? [id number] Gender: ? Female ? 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 Requested By: KIRIT YOON Order Number: [id number] ? Reading MD: ?? Marvin Mckeon ? Measurements Intervals ?[place] ? Rate: ? 96 ? P: ?44 MD: ? 181 ?QRS: ?16 QRSD: ? 86 ? T: ?45 QT: ? 349 ? QTc: ?441 ? 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1970 Requested By: KIRIT YOON Order Number: [id number] Reading MD: Marvin Mckeon Measurements Intervals [place] Rate: 96 P: 44 MD: 181 QRS: 16 QRSD: 86 T: 45 QT: 349 QTc: 441 Interpretive Statements SINUS RHYTHM NONSPECIFIC T-WAVE ABNORMALITY Compared to ECG 01/08/2022 18:02:44 Sinus tachycardia no longer present T-wave abnormality still present Kirit Yoon MD ECG ORDERABLES Final Re sult Performing Organization Address City/[facility]/ZIP Co de Phone Number [facility] ([facility]) [facility] * (ABNORMAL) POCT glucose (09/05/2022 6:05 AM CDT) GLUCOSE POC 193(H) 70 - 99 mg/dL 09/05/2022 6:19 AM CDT [facility] 09/05/2022 6:05 AM CDT Kirit Yoon MD POCT ORDERABLES - DEVICE Final Result [facility] [address] [place] [address], [place] [phone] * (ABNORMAL) POCT glucose (09/04/2022 8:02 PM CDT) GLUCOSE POC 218(H) 70 - 99 mg/dL 09/04/2022 8:13 PM CDT [facility] 09/04/2022 8:02 PM CDT us Kirit Yoon MD POCT ORDERABLES - DEVICE Final Result Performing Organization Address [facility] Co de Phone Number [facility] [address] [place] [address], [place] [phone] * (ABNORMAL) POCT glucose (09/04/2022 5:27 PM CDT) GLUCOSE POC 126(H) 70 - 99 mg/dL 09/04/2022 5:45 PM CDT [facility] 09/04/2022 5:27 PM CDT us Kirit Yoon MD POCT ORDERABLES - DEVICE Final Result Performing Organization Address [facility] Co de Phone Number [facility] [address] [place] [address], [place] [phone] * MRI FOOT RT WO CON (09/04/2022 [...] - 99 mg/dL 09/04/2022 12:03 PM CDT [facility] 09/04/2022 12:0 2 PM CDT Kirit Yoon MD POCT ORDERABLES - DEVICE Final Result [facility] [address] [place] [address], [place] [phone] * (ABNORMAL) BASIC METABOLIC PANEL (09/04/2022 8:20 AM CDT) GLUCOSE 162(H) 70 - 99 MG/DL 09/04/2022 9:10 AM CDT [facility] BUN 20(H) 7 - 18 MG/DL 09/04/2022 9:10 AM CDT [facility] CREATININE S/P/B 1.09(H) 0.55 - 1.02 MG/DL 09/04/2022 9:10 AM CDT [facility] SODIUM S/P/B 138 136 - 145 MMOL/L 09/04/2022 9:10 AM CDT [facility] POTASSIUM S/P/B 3.7 3.5 - 5.1 MMOL/L 09/04/2022 9:10 AM CDT [facility] CHLORIDE S/P/B 106 100 - 108 MMOL/L 09/04/2022 9:10 AM CDT [facility] CO2 28.1 21 - 32 MMOL/L 09/04/2022 9:10 AM CDT [facility] CALCIUM S/P/B 8.8 8.5 - 10.1 MG/DL 09/04/2022 9:10 AM CDT [facility] ANION GAP 3.9(L) 5 - 15 MMOL/L 09/04/2022 9:10 AM CDT [facility] BUN CREATININE RATIO 18.3 6 - 26 09/04/2022 9:10 AM CDT [facility] GFR ESTIMATE 62(L) >90 ML/MIN/1.7 3 M2 09/04/2022 9:10 AM CDT [facility] Comment: NOTE: eGFR is not calculated for patients <18 years of age. This is an estimated GFR calculation using the new CKD EPI creatinine equation without race and so does not require a correction factor for race. This estimated GFR should not be used for calculating drug doses. 09/04/2022 8:20 AM CDT us Nick Hernandes MD LABORATORY Final Result [facility] [address] [place] [address], [place] [phone] * (ABNORMAL) CBC W/DIFF AUTOMATED (09/04/2022 8:20 AM CDT) WBC 8.7 4.5 - 11.0 x10'3/uL 09/04/2022 8:40 AM CDT [facility] RBC 3.84(L) 4.20 - 5.40 x10'6/uL 09/04/2022 8:40 AM CDT [facility] HGB 11.5(L) 12.0 - 16.0 G/DL 09/04/2022 8:40 AM CDT [facility] HCT 34.5(L) 38.0 - 48.0 % 09/04/2022 8:40 AM CDT [facility] MCV 89.8 81.0 - 99.0 FL 09/04/2022 8:40 AM CDT [facility] MCH 29.9 27.0 - 31.0 PG 09/04/2022 8:40 AM CDT [facility] MCHC 33.3 32.0 - 36.0 G/DL 09/04/2022 8:40 AM CDT [facility] RDW 13.0 11.5 - 14.5 % 09/04/2022 8:40 AM CDT [facility] PLT 267 130 - 400 x10'3/uL 09/04/2022 8:40 AM CDT [facility] MPV 11.3 9.3 - 12.2 FL 09/04/2022 8:40 AM CDT [facility] DIFFERENTIAL TYPE AUTOMATED DIFFERENTIAL 09/04/2022 8:40 AM CDT [facility] NEUTROPHILS % 50.5 % 09/04/2022 8:40 AM CDT [facility] LYMPHOCYTES % 42.8 % 09/04/2022 8:40 AM CDT [facility] MONOCYTES % 4.8 % 09/04/2022 8:40 AM CDT [facility] EOSINOPHILS 1.1 % 09/04/2022 8:40 AM CDT [facility] BASOPHILS 0.6 % 09/04/2022 8:40 AM CDT [facility] IMMATURE GRANS % 0.2 % 09/05/19 8:40 AM CDT [facility] ABS. NEUTROPHILS TOTAL 4.39 1.80 - 7.70 x10'3/uL 09/04/2022 8:40 AM CDT [facility] ABS. LYMPHOCYTES 3.72 1.00 - 4.80 x10'3/uL 09/04/2022 8:40 AM CDT [facility] ABS. MONOCYTES 0.42 0.24 - 0.86 x10'3/uL 09/04/2022 8:40 AM CDT [facility] ABS. EOSINOPHILS 0.10 0.04 - 0.36 x10'3/uL 09/04/2022 8:40 AM CDT [facility] ABS. BASOPHILS 0.05 0.01 - 0.08 x10'3/uL 09/04/2022 8:40 AM CDT [facility] ABS. IMMATURE GRANULOCYTES 0.02 0.00 - 0.49 x10'3/uL 09/04/2022 8:40 AM CDT [facility] 09/04/2022 8:20 AM CDT Nick Hernandes MD LABORATORY Final Result [facility] [address] [place] [address], * (ABNORMAL) POCT glucose (09/03/2022 9:14 PM CDT) [facility] Signature GLUCOSE POC 210(H) 70 - 99 mg/dL 09/03/2022 9:15 PM CDT [facility] 09/03/2022 9:14 PM CDT Kirit Yoon MD POCT ORDERABLES - DEVICE Final Result [facility] [address] [place] [address], [place] [phone] * LACTIC ACID (09/03/2022 7:48 PM CDT) LACTIC ACID VENOUS 1.5 0.4 - 2.0 MMOL/L 09/03/2022 8:17 PM CDT [facility] 09/03/2022 7:48 PM CDT Dior Maldonado [facility] LABORATORY Final Resul t [facility] [address] [place] [address], [place] [phone] * CULTURE, BACTERIA, BLOOD (09/03/2022 7:48 PM CDT) Pathologist [facility] SPEC DESCRIPTION BLOOD 09/03/2022 1:30 PM CDT [facility] SPECIAL REQUESTS NO SPECIAL REQUEST 09/03/2022 1:30 PM CDT [facility] CULTURE RESULT NO GROWTH 5 DAYS 09/08/2022 8:32 AM CDT [facility] BLOOD SPECIMEN OBTAINED FOR BLOOD CULTURE / Unknown 09/03/2022 7:48 PM CDT 09/03/2022 7:55 PM CDT Dior Maldonado [facility] MICROBIOLOGY - GENERAL ORDE RABLES Final Result [facility] [address] [place] [address], [place] [phone] * CULTURE, BACTERIA, BLOOD (09/03/2022 7:36 PM CDT) SPEC DESCRIPTION BLOOD 09/03/2022 1:30 PM CDT [facility] SPECIAL REQUESTS NO SPECIAL REQUEST 09/03/2022 1:30 PM CDT [facility] CULTURE RESULT NO GROWTH 5 DAYS 09/08/2022 8:32 AM CDT [facility] BLOOD SPECIMEN OBTAINED FOR BLOOD CULTURE / Unknown 09/03/2022 7:36 PM CDT 09/03/2022 7:56 PM CDT Dior Maldonado [facility] Final Result [facility] [address] [place] [address], [place] [phone] * (ABNORMAL) C-REACTIVE PROTEIN (09/03/2022 2:54 PM CDT) C-REACTIVE PROTEIN 1.99(H) <0.29 mg/dL 09/03/2022 3:44 PM CDT [facility] 09/03/2022 2:54 PM CDT Dior Maldonado [facility] LABORATORY Final Resul t [facility] [address] [place] [address], [place] [phone] * (ABNORMAL) COMPREHENSIVE METABOLIC PANEL (09/03/2022 2:54 PM CDT) GLUCOSE 230(H) 70 - 99 MG/DL 09/03/2022 3:44 PM CDT [facility] BUN 18 7 - 18 MG/DL 09/03/2022 3:44 PM CDT [facility] CREATININE S/P/B 1.18(H) 0.55 - 1.02 MG/DL 09/03/2022 3:44 PM CDT [facility] SODIUM S/P/B 135(L) 136 - 145 MMOL/L 09/03/2022 3:44 PM CDT [facility] POTASSIUM S/P/B 3.9 3.5 - 5.1 MMOL/L 09/03/2022 3:44 PM CDT [facility] Comment:SLIGHT HEMOLYSIS, RE SULT MAY BE AFFECTED. CHLORIDE S/P/B 104 100 - 108 MMOL/L 09/03/2022 3:44 PM CDT [facility] CO2 28.6 21 - 32 MMOL/L 09/03/2022 3:44 PM CDT [facility] CALCIUM S/P/B 9.3 8.5 - 10.1 MG/DL 09/03/2022 3:44 PM CDT [facility] BILIRUBIN TOTAL S/P/B 0.3 0.2 - 1.2 MG/DL 09/03/2022 3:44 PM CDT [facility] Comment: THIS ASSAY IS NOT RECOMMENDED FOR PATIENTS UNDERGOING TREATMENT WITH ELTROMBOPAG DUE TO THE POTENTIAL FOR FALSELY ELEVATED RESULTS. TOTAL PROTEIN S/P/B 8.8(H) 6.4 - 8.2 G/DL 09/03/2022 3:44 PM CDT [facility] ALBUMIN S/P/B 3.4 3.4 - 5.0 G/DL 09/03/2022 3:44 PM CDT [facility] AST 21 15 - 37 U/L 09/03/2022 3:44 PM CDT [facility] Comment:SLIGHT HEMOLYSIS, RE SULT MAY BE AFFECTED. ALT 23 14 - 55 U/L 09/03/2022 3:44 PM CDT [facility] ALKALINE PHOSPHATASE S/P/B 134 50 - 136 U/L 09/03/2022 3:44 PM CDT [facility] ANION GAP 2.4(L) 5 - 15 MMOL/L 09/03/2022 3:44 PM CDT [facility] BUN CREATININE RATIO 15.3 6 - 26 09/03/2022 3:44 PM CDT [facility] A/G RATIO 0.6(L) 1.0 - 2.0 RATIO 09/03/2022 3:44 PM CDT [facility] GFR ESTIMATE 56(L) >90 ML/MIN/1.7 3 M2 09/03/2022 3:44 PM CDT [facility] Comment: NOTE: eGFR is not calculated for patients <18 years of age. This is an estimated GFR calculation using the new CKD EPI creatinine equation without race and so does not require a correction factor for race. This estimated GFR should not be used for calculating drug doses. 09/03/2022 2:54 PM CDT Dior Maldonado [facility] Final Resul t [facility] [address] [place] [address], * (ABNORMAL) CBC W/DIFF AUTOMATED (09/03/2022 2:54 PM CDT) WBC 10.4 4.5 - 11.0 x10'3/uL 09/03/2022 3:18 PM CDT [facility] RBC 4.08(L) 4.20 - 5.40 x10'6/uL 09/03/2022 3:18 PM CDT [facility] HGB 12.3 12.0 - 16.0 G/DL 09/03/2022 3:18 PM CDT [facility] HCT 36.7(L) 38.0 - 48.0 % 09/03/2022 3:18 PM CDT [facility] MCV 90.0 81.0 - 99.0 FL 09/03/2022 3:18 PM CDT [facility] MCH 30.1 27.0 - 31.0 PG 09/03/2022 3:18 PM CDT [facility] MCHC 33.5 32.0 - 36.0 G/DL 09/03/2022 3:18 PM CDT [facility] RDW 12.8 11.5 - 14.5 % 09/03/2022 3:18 PM CDT [facility] PLT 291 130 - 400 x10'3/uL 09/03/2022 3:18 PM CDT [facility] MPV 11.5 9.3 - 12.2 FL 09/03/2022 3:18 PM CDT [facility] DIFFERENTIAL TYPE AUTOMATED DIFFERENTIAL 09/03/2022 3:18 PM CDT [facility] NEUTROPHILS % 62.9 % 09/03/2022 3:18 PM CDT [facility] LYMPHOCYTES % 31.6 % 09/03/2022 3:18 PM CDT [facility] MONOCYTES % 3.9 % 09/03/2022 3:18 PM CDT [facility] EOSINOPHILS 0.7 % 09/03/2022 3:18 PM CDT [facility] BASOPHILS 0.6 % 09/03/2022 3:18 PM CDT [facility] IMMATURE GRANS % 0.3 % 09/04/19 3:18 PM CDT [facility] ABS. NEUTROPHILS TOTAL 6.55 1.80 - 7.70 x10'3/uL 09/03/2022 3:18 PM CDT [facility] ABS. LYMPHOCYTES 3.29 1.00 - 4.80 x10'3/uL 09/03/2022 3:18 PM CDT [facility] ABS. MONOCYTES 0.41 0.24 - 0.86 x10'3/uL 09/03/2022 3:18 PM CDT [facility] ABS. EOSINOPHILS 0.07 0.04 - 0.36 x10'3/uL 09/03/2022 3:18 PM CDT [facility] ABS. BASOPHILS 0.06 0.01 - 0.08 x10'3/uL 09/03/2022 3:18 PM CDT [facility] ABS. IMMATURE GRANULOCYTES 0.03 0.00 - 0.49 x10'3/uL 09/03/2022 3:18 PM CDT [facility] 09/03/2022 2:54 PM CDT Dior VASQUEZP LABORATORY Final Resul t Performing Organization Address [facility] Co de Phone Number [facility] [address] [place] [address], [place] [phone] * CULTURE URINE (09/03/2022 2:52 PM CDT) SPEC DESCRIPTION URINE CLEAN CATCH 09/03/2022 3:20 PM CDT [facility] SPECIAL REQUESTS NO SPECIAL REQUEST 09/03/2022 3:20 PM CDT [facility] CULTURE RESULT NO GROWTH 2 DAYS 09/05/2022 8:38 AM CDT [facility] URINE SPECIMEN OBTAINED BY CLEAN CATCH PROCEDURE / Unknown 09/03/2022 2:52 PM CDT 09/03/2022 3:19 PM CDT us Dior VASQUEZP MICROBIOLOGY - GENERAL ORDE RABLES Final Result [facility] [address] [place] [address], [place] [phone] * (ABNORMAL) URINALYSIS (09/03/2022 2:52 PM CDT) SPECIMEN TYPE URINE CLEAN CATCH 09/03/2022 2:53 PM CDT [facility] COLOR (U) LIGHT YELLOW 09/03/2022 3:19 PM CDT [facility] TRANSPARENCY TURBID 09/03/2022 3:19 PM CDT [facility] SPECIFIC GRAVITY (U) 1.016 1.001 - 1.030 09/03/2022 3:19 PM CDT [facility] U PH 5.5 5.0 - 9.0 09/03/2022 3:19 PM CDT [facility] LEUKOCYTES (U) NEGATIVE NEGATIVE 09/03/2022 3:19 PM CDT [facility] NITRITES NEGATIVE NEGATIVE 09/03/2022 3:19 PM CDT [facility] PROTEIN (U) 100(H) <30 MG/DL 09/03/2022 3:19 PM CDT [facility] GLUCOSE (U) 100(A) NORMAL MG/DL 09/03/2022 3:19 PM CDT [facility] KETONES MG/DL (U) NEGATIVE NEGATIVE MG/DL 09/03/2022 3:19 PM CDT [facility] UROBILINOGEN NORMAL NORMAL MG/DL 09/03/2022 3:19 PM CDT [facility] BILIRUBIN (U) NEGATIVE NEGATIVE MG/DL 09/03/2022 3:19 PM CDT [facility] BLOOD (U) TRACE(A) NEGATIVE 09/03/2022 3:19 PM CDT [facility] CULTURE & SENSITIVITY INDICATED? SPECIMEN SETUP FOR CULTURE 09/03/2022 3:19 PM CDT [facility] MUCUS RARE /LPF 09/03/2022 3:19 PM CDT [facility] WBC/HPF 7(H) <6 /HPF 09/03/2022 3:19 PM CDT [facility] RBC/HPF 2 <6 /HPF 09/03/2022 3:19 PM CDT [facility] BACTERIA (U) MODERATE(A) NONE /HPF 09/03/2022 3:19 PM CDT [facility] SQUAMOUS EPITHELIALS FEW /HPF 09/03/2022 3:19 PM CDT [facility] URINE SPECIMEN OBTAINED BY CLEAN CATCH PROCEDURE / Unknown 09/03/2022 2:52 PM CDT us Dior Maldonado [facility] URINE ORDERABLES Final Resu lt [facility] [address] [place] [address], * XR FOOT RT 3V (09/03/2022 2:39 [...] MD, 09/03/2022 2:40 PM us Dior Maldonado [facility] Final Resul t * (ABNORMAL) SED RATE, ERYTHROCYTE (ESR) (09/03/2022 1:30 PM CDT) ESR 76(H) <30 MM/HR 09/03/2022 3:42 PM CDT [facility] Comment:Testing performed on [employer] iSED. 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
--- OUTSIDE RECORDS SUMMARY | 2024-03-03 01:22 | XMS_ITS | Encounter Summary ---
Author Organization [facility] Address [address] [place] [address]. [place] [address] [place] [address] Care Team Providers Care Metalworker Name Role Phone Colton SILVEIRA MD, Abiodun Rushing Primary Care Provider Victoriano Langston MD Unavailable [phone] Encounter Details Date Type Department Care Team [...] Recorded Patient Health Questionnaire-2 Score 0 05/05/2022 [facility] - Occupational [...] Contact Info) Description 03/14/2024 11:45 AM MANAGER WELLNESS Office Visit [facility] [phone] Marvin Mckeon MD [address] [facility] [address] [place] [address] 03/20/2024 11:30 AM MANAGER WELLNESS Office Visit [facility] Family Medicine - [place] [address] [place] [phone] Abiodun Segura II, MD [address] [place] [address] documented as of this encounter Goals Goal Patient Goal Type Associated Problems Recent Progress Patient-Stated? Author Family - family caregiver with be involved in care transitions and discharge planning Lifestyle No Natty Cheek, RN documented as of this encounter Visit Diagnoses Not on filedocumented in this encounter Additional Health Concerns Assessment Noted Time PHQ-9 Depression Total Score: 0 03/08/19 22 9:30 AM MANAGER WELLNESS documented as of this encounter Care Teams Metalworker Relationship Specialty Start Date End Date Abiodun Segura II, MD [address] [place] [address] PCP - General FAMILY PRACTICE 03/09/21 [place] [address] [place] [address] PODIATRY/SURGERY 05/05/22 documented as of this encounter
--- OUTSIDE RECORDS SUMMARY | 2024-03-03 01:22 | XMS_ITS | Encounter Summary ---
Author Organization [facility] Address [address] [place] [address]. [place] [address] [place] [address] Care Team Providers Care Tree Planter Name Role Phone Colton SILVEIRA MD, Yasmin Rushing Primary Care Provider Victoriano Langston MD Unavailable [phone] Reason for Visit * Reason Comments Diabetes Patient present DM 2 and possible UTI Encounter Details Date Type Department Care Team (Late st Contact Info) Description 06/27/2022 12:20 PM CDT Office Visit [facility] Family Medicine - [address] [phone] Yasmin Valenzuela II, MD [address] [place] [address] Diabetes (Patient present DM 2 and [...] from the original note were not included. [facility] [place] [id number] OFFICE FOLLOW UP NOTE Encounter Date: 06/27/2022 [...] with long- term current use of insulin ([facility]) 2. Primary hypertension 3. Hypercholesteremia [...] with long- term current use of insulin ([facility]) Patient's hemoglobin A1c is slightly [...] the day of the encounter. This includes rgym-lu-[id number] and fdy-mvjb-bb-face time I provided on the day of the encounter & excludes time spent performing separately reportable services. There are no discontinued medications. YASMIN VALENZUELA MD 06/27/2022 Portions of this note were dictated using [employer] speech recognition software. Occasional wrong wordor sound-alike substitutions may have occurred due to the inherent limitations of voice recognition software. Please read the chart carefully and recognize, using context, where the substitutions may have occurred. documented in this encounter Plan of Treatment Upcoming Encounters Date Type Department Care Team (Late st Contact Info) Description 03/14/2024 11:45 AM GUNSTOCK SPRAY UNIT FEEDER Office Visit [facility] [phone] Marvin Mckeon MD [facility] [address] [place], [place] [phone] 03/20/2024 11:30 AM GUNSTOCK SPRAY UNIT FEEDER Office Visit [facility] Family Medicine - [place] [phone] Yasmin Valenzuela II, MD [address] [place] [address] documented as of this encounter Procedures Procedure Name Priority Date/Time Associated Diagnosis Comments URINE BACTERIA CULTURE Routine 06/27/2022 7:51 PM CDT Acute cystitis without hematuria documented in this encounter Results * CULTURE URINE (06/27/2022 7:51 PM CDT) [facility] [place] Comment: ??CULTURE, URINE, ROUTINE ?Micro Number: ?[id number] ??Test Status: ? Final ??Specimen Source: ?? [...] Performing Organization Information: ?Site ID: [id number] ?Name: [facility] ?Address: [address] [place] [address] ?Director: Robert Mendez us Yasmin Valenzuela II, MD MICROBIOLOGY - GENERAL ORDERABLES Final Result [facility] [phone] documented in this encounter Visit Diagnoses Diagnosis Acute cystitis without hematuria- Primary Acute cystitis Type 2 diabetes mellitus with diabetic neuropathic arthropathy, with long-term current use of insulin ([facility]) Primary hypertension Unspecified essential hypertension Hypercholesteremia Pure hypercholesterolemia Candidiasis of genitalia in female Candidiasis of vulva and vagina Hot flashes due to menopause documented in this encounter Additional Health Concerns Assessment Noted Time PHQ-9 Depression Total Score: 0 03/08/19 22 9:30 AM GUNSTOCK SPRAY UNIT FEEDER documented as of this encounter Care Teams Tree Planter Relationship Specialty Start Date End Date Yasmin Valenzuela II, MD [address] [place] [address] PCP - General FAMILY PRACTICE 03/09/21 [place] [address] [place] [address] PODIATRY/SURGERY 05/05/22 documented as of this encounter
--- OUTSIDE RECORDS SUMMARY | 2024-03-03 01:22 | XMS_ITS | Encounter Summary ---
Author Organization [facility] [place] [facility] Address [facility] [place] [address] [place] [address] Care Team Providers Care Shactor Name Role Phone Colton SILVEIRA MD, Abiodun Rushing Primary Care Provider Victoriano Langston MD Unavailable [phone] Reason for Visit * Auth/Cert (Routine) Specialty Diagnoses / Procedures Referred By Contxavier t Referred To Contact Diagnoses Soft tissue infection of foot Soft tissue infection of foot Procedures NONE Referral ID Status Reason Start Date Expiration Date Visits Re quested Visits Authorized [id number] 1 1 Encounter Details Date Type Department Care Team (Late st Contact Info) Description 09/06/2022 12:41 PM CDT Anesthesia [place] [address] Douglas Loja MD [address] [place] [address] [place] [address] Anesthesia Record Procedure Summary Procedure Name Responsible Anesthesiologist Anesthesia Start Time Anesthesia Stop Time BONE BIOPSY RIGHT FOOT FIRST AND SECOND TOES (Right: Foot) Douglas Loja MD 09/06/22 1241 09/06/22 1324 Events Date Time Event Comment 09/06/2022 1221 1221 AN Anesthesia Prepped 1230 AN ELECTRONIC CONSOLE DISPLAY OPERATOR Prepped 1241 An Start Patient ID [...] Outside of This Facility?: No; Placed By: ELECTRONIC CONSOLE DISPLAY OPERATOR; Style: Other (iGel); Insertion Attempts:1; Breath Sounds:Clear bilaterally, Equal bilaterally; Breath Sound:Clear; Placement Verified By: Capnography, Auscultation, Chest Rise; Extubation Assessment: Suctioned, Tolerated well, Patient spontaneously breathing, Able to swallow, Atraumatic, Deep breathes w/equal chest movements; Removal Date: 09/06/22; Removal Time: 131; Removal Person: ELECTRONIC CONSOLE DISPLAY OPERATOR; Removal Reason: End of Case 09/06/22 [...] Recorded Patient Health Questionnaire-2 Score 0 05/05/2022 [facility] Health - Occupational Stress [...] lb 4.7 oz), last menstrual period 10/29/2004, [id number] %. No notable events documented. * Anesthesia [...] Cardiovascular (+) hypertension, hyperlipidemia(-) Valvular problems/Murmurs, past UT, CHF, arrhythmia ROS comment: ECHO 07/10/2021 ++++++++++++++++++++++++++++++++++++ [...] Diabetes mellitus (CMS/HCC) No date: Diabetic neuropathy ([facility]) No date: High cholesterol No date: Hypertension [...] st Contact Info) Description 03/14/2024 11:45 AM FINISHING ROOM SUPERVISOR Office Visit [facility] [phone] Marvin Mckeon MD [facility] [address] [place] [address] 03/20/2024 11:30 AM FINISHING ROOM SUPERVISOR Office Visit [facility] Family Medicine - [address] [phone] Abiodun Segura II, MD [address] [place] [phone] (work) documented as of this encounter Goals [...] Depression Total Score: 0 03/08/19 9:30 AM FINISHING ROOM SUPERVISOR documented as of this encounter Care Teams Shactor Relationship Specialty Start Date End Date Abiodun Segura II, MD [address] [place] [address] PCP - General FAMILY PRACTICE 03/09/21 [place] [address] [place] [address] PODIATRY/SURGERY 05/05/22 documented as of this encounter
--- OUTSIDE RECORDS SUMMARY | 2024-03-03 01:22 | XMS_ITS | Encounter Summary ---
Author Organization [facility] Address [address] [place] [address]. [place] [address] [place] [address] Care Team Providers Care Life Insurance Agent Name Role Phone Colton SILVEIRA MD, Yasmin Rushing Primary Care Provider Victoriano Langston MD Unavailable [phone] Reason for Visit * Reason Comments Type 2 Diabetes Patient present for DM 2 follow up and A1c Encounter Details Date Type Department Care Team (Late st Contact Info) Description 09/20/2022 9:00 AM CDT Office Visit [facility] Family Medicine - [place] [address] [place] [address] Yasmin Valenzuela II, MD 100 [place] [address] Type 2 Diabetes (Patient present [...] from the original note were not included. 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, bilateral legs (CMS/HCC) Past Medical History: Diagnosis Date Arthritis Charcot foot due to diabetes mellitus (HHS/HCC) (CMS/HCC) LEFT FOOT Constipation COVID-19 Diabetes mellitus (HHS/HCC) ([facility]) Diabetic neuropathy ([facility]/HCC) ([facility] High cholesterol Hypertension Renal disorder had [...] with long- term current use of insulin ([facility]) ([facility]) A1C (BACK OFFICE) dulaglutide (TRULICITY) 4.5 MG/0.5ML injection (PEN) 2. Primary hypertension 3. Hot flashes due to menopause venlafaxine XR (EFFEXOR-XR) 37.5 MG 24 hr capsule 4. Diabetic foot infection (HHS/HCC) (CMS/HCC) 5. Acquired absence of other left toe(s) (HHS/HCC) ([facility]) 6. Atherosclerosis of king salmon arteries of extremities with intermittent claudication, bilateral legs([facility]) Plan: Orders Placed This Encounter Medications DISCONTD: pregabalin (LYRICA) 100 MG capsule dulaglutide (TRULICITY) 4.5 MG/0.5ML injection (PEN) venlafaxine XR (EFFEXOR-XR) 37.5 MG 24 hr capsule 1. Type 2 diabetes mellitus with diabetic neuropathic arthropathy, with long- term current use of insulin (HHS/HCC) ([facility]) Patient will continue Humalog 75/25 60 units in the morning and 50 5 in the evening and we will increase Trulicity to 4.5 mg weekly and patient will follow- up in clinic in 3 months for hemoglobin [id number]. - A1C (BACK OFFICE) - dulaglutide (TRULICITY) [...] Refill: 3 4. Diabetic foot infection (HHS/HCC) ([facility]) Patient does not appear to have an infection at this time. Patient is not tolerating Lyrica for herneuropathy. We will discontinue Lyrica and have patient use venlafaxine which can also help with neuropathy although not as well as Lyrica. We will reassess in 3 months. 5. Acquired absence of other left toe(s) ([facility]/HCC) ([facility]) Patient's left foot has no signs of infection. 6. Atherosclerosis of king salmon arteries of extremities with intermittent claudication, bilateral legs([facility]) Patient is asymptomatic at this time over the distances that she walks. We will continue risk factor control patient will continue to remain as active as she can to help maintain normal blood flow. I personally spent a total of 37 minutes on the day of the encounter. This includes zhbm-nm-hjbs and rcx-mumo-oj-face time I provided on the day of the encounter & excludes time spent performing separately reportable services. Medications Discontinued During This Encounter Medication Reason pregabalin (LYRICA) 100 MG capsule Side effects dulaglutide (TRULICITY) 3 MG/0.5ML injection Dose adjustment YASMIN VALENZUELA MD 09/20/2022 Portions of this note were dictated using [employer] speech recognition software. Occasional wrong wordor sound-alike substitutions may have occurred due to the inherent limitations of voice recognition software. Please read the chart carefully and recognize, using context, where the substitutions may have occurred. documented in this encounter Plan of Treatment Upcoming Encounters Date Type Department Care Team (Late st Contact Info) Description 03/14/2024 11:45 AM STRAIGHT EDGER Office Visit [facility] [address] Marvin Mckeon MD [facility] [address] [place], [place] [phone] 03/20/2024 11:30 AM STRAIGHT EDGER Office Visit [facility] Family Medicine - [place] [address] [place] [phone] Yasmin Valenzuela II, MD 100 [place], [place] [phone] documented as of this encounter Goals Goal [...] with long-term current use of insulin ([facility]) documented in this encounter Results * A1C (BACK OFFICE) (09/20/2022) HGB A1C 8.8 % MG-100 [facility] 09/20/2022 us Yasmin Valenzuela II, MD LABORATORY Final R esult MG100 [facility] [address] [place] [address], documented in this encounter Visit Diagnoses Diagnosis Type 2 diabetes mellitus with diabetic neuropathic arthropathy, with long-term current use of insulin ([facility])- Primary Primary hypertension Unspecified essential hypertension Hot flashes due to menopause Diabetic foot infection ([facility]) Type II or unspecified type diabetes mellitus with other specified manifestations, not stated as uncontrolled Acquired absence of other left toe(s) ([facility]) 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
--- OUTSIDE RECORDS SUMMARY | 2024-03-03 01:22 | XMS_ITS | Encounter Summary ---
Author Organization [facility] Address [address] [place] [address]. [place] [address] [place] [address] Care Team Providers Care Fire Supervisor Name Role Phone Colton SILVEIRA MD, Abiodun Rushing Primary Care Provider Victoriano Langston MD Unavailable Reason for Referral * Imaging (Emergency) - Closed Specialty Diagnoses / Procedures Referred By Lyla chaney Referred To Contact RADIOLOGY Procedures CT ABD+PEL W CON Hubert Sullivan MD [address] [address] Phone: tel: fax: Referral ID Status Reason Start Date Expiration Date Visits Re quested Visits Authorized [id number] Closed 09/24/2022 09/25/2023 1 1 Reason for Visit * Reason Comments Abdominal Pain Encounter Details Date Type Department Care Team (Late st Contact Info) Description 09/24/2022 5:19 AM CDT - 09/24/2022 9:23 AM CDT Emergency [facility] [place] [address] Hubert Sullivan MD [address] [address] Erica Keating MD [address] [place] [address] Abdominal Pain Discharge Disposition: Home or Self [...] Recorded Patient Health Questionnaire-2 Score 0 05/05/2022 [facility] - Occupational Stress [...] sent through Care Everywhere. * Abdominal pain (Congolese) * Nausea and Vomiting Discharge Instructions, Adult (Congolese) documented in this encounter Medications at Time [...] vitally stable. She followed up with her help aid who took stitches out of her toes she says recently Results for orders placed or performed during the hospital encounter of 09/24/22 ECG [address] [facility] [address] Test Date: 2022-09-24 Pat Name: LENA YOUNGBLOOD Department: 41 Room: [place] [address] Gender: Female Ceramic Research Engineer: [id number] : 1970 Requested By: HUBERT SULLIVAN Order Number: [id number] Reading MD: Measurements Intervals [place] Rate: 95 P: 138 SC: 168 QRS: 170 QRSD: 81 T: 104 [...] ABD+PEL W CON Final Result by User, [email or web address] (09/25 815) Exam: CT Abdomen and Pelvis [...] Reviewed ct findings, no acute process [JAVON] 0838 Updated patient on results answered all questions. [...] as: Sinus rhythm. Rate of 95. Normal SC interval, normal QTc. My independent interpretation of [...] st Contact Info) Description 03/14/2024 11:45 AM SR. MANAGER MARKETING Office Visit [facility] [address] Marvin Mckeon MD [address] [facility] [address] [place], [place] [address] 03/20/2024 11:30 AM SR. MANAGER MARKETING Office Visit [facility] Family Medicine - [place] 100 [place] [phone] Abiodun Segura II, MD 100 [place], [place] [phone] documented as of this encounter Goals Goal [...] URINE CLEAN CATCH 09/24/2022 8:35 AM CDT [facility] COLOR (U) LIGHT YELLOW 09/24/2022 8:43 AM CDT [facility] TRANSPARENCY CLEAR 09/24/2022 8:43 AM CDT [facility] SPECIFIC GRAVITY (U) 1.022 1.001 - 1.030 09/24/2022 8:43 AM CDT [facility] U PH 7.0 5.0 - 9.0 09/24/2022 8:43 AM CDT [facility] LEUKOCYTES (U) NEGATIVE NEGATIVE 09/24/2022 8:43 AM CDT [facility] NITRITES NEGATIVE NEGATIVE 09/24/2022 8:43 AM CDT [facility] PROTEIN RANDOM (U) 20 <30 MG/DL 09/24/2022 8:43 AM CDT [facility] GLUCOSE (U) NORMAL NORMAL MG/DL 09/24/2022 8:43 AM CDT [facility] KETONES MG/DL (U) NEGATIVE NEGATIVE MG/DL 09/24/2022 8:43 AM CDT [facility] UROBILINOGEN NORMAL NORMAL MG/DL 09/24/2022 8:43 AM CDT [facility] BILIRUBIN (U) NEGATIVE NEGATIVE MG/DL 09/24/2022 8:43 AM CDT [facility] BLOOD (U) NEGATIVE NEGATIVE 09/24/2022 8:43 AM CDT [facility] CULTURE & SENSITIVITY INDICATED? CULTURE IS NOT INDICATED 09/24/2022 8:43 AM CDT [facility] URINE SPECIMEN OBTAINED BY CLEAN CATCH PROCEDURE / Unknown 09/24/2022 8:35 AM CDT us Erica Keating MD URINE ORDERABLES Final Resul t [facility] [address] [place] [address], [place] [phone] * CT ABD+PEL W CON (09/24/2022 7:52 [...] AM CDT) 09/24/2022 5:42 AM CDT Narrative [facility] RAD - 09/24/2022 6:[address] [facility] ? [address] [facility] [place] [place] ? Test Date: ?2022-09-24 Pat Name: ? LENA YOUNGBLOOD ?Department: ?? 41 ? Room: ? [id number] Gender: ? Female ? Ceramic Research Engineer: ?? [id number] : ?1970 ? Requested By: HUBERT ARMSTRONGGLENNA Order Number: [id number] ? Reading MD: ?? Brianna Dave ? Measurements Intervals ?[place] ? Rate: ? 95 ? P: ?138 SC: ? 168 ?QRS: ?170 QRSD: ? 81 ? T: ?104 QT: ? 341 ? QTc: ?429 ? Interpretive Statements SINUS RHYTHM ARM LEADS REVERSED ??[INVERTED P AND QRS IN I] Compared to ECG 09/05/2022 06:59:16 T-wave abnormality no longer present Procedure Note Brianna Acosta MD - 09/24/[address] [facility] Test Date: 2022-09-24 Pat Name: LENA YOUNGBLOOD Department: 41 Room: [place] [address] Gender: Female Ceramic Research Engineer: [id number] : 1970 Requested By: HUBERT SULLIVAN Order Number: [id number] Reading MD: Brianna Acosta Measurements Intervals [place] Rate: 95 P: 138 SC: 168 QRS: 170 QRSD: 81 T: 104 QT: 341 QTc: 429 Interpretive Statements SINUS RHYTHM ARM LEADS REVERSED [INVERTED P AND QRS IN I] Compared to ECG 09/05/2022 06:59:16 T-wave abnormality no longer present us Hubert Sullivan MD ECG ORDERABLES Final Result [facility] RAD * TROPONIN, QUANT (09/24/2022 5:35 AM CDT) [facility] TROPONIN I HIGH SENSITIVITY 5 <54 ng/L 09/24/2022 6:18 AM CDT [facility] Comment: HIGH DOSES OF BIOTIN, TROPONIN-SPECIFIC AUTOANTIBODIES, AND ANTIBODY THERAPY CONTAINING HAMA MAY INTERFERE WITH THIS TEST RESULT. CORRELATION TO CLINICAL HISTORY AND PRESENTATION RECOMMENDED. 09/24/2022 5:35 AM CDT us Hubert Sullivan MD LABORATORY Final Result [facility] [address] [place] [address], * LIPASE (09/24/2022 5:35 AM CDT) [facility] LIPASE 49 13 - 75 UNITS/L 09/24/2022 6:18 AM CDT [facility] 09/24/2022 5:35 AM CDT Hubert Sullivan MD LABORATORY Final Result Performing Organization Address City/[facility]/ZIP Co de Phone Number [facility] [address] [place] [address], [place] [phone] * (ABNORMAL) COMPREHENSIVE METABOLIC PANEL (09/24/2022 5:35 AM CDT) [facility] GLUCOSE 171(H) 70 - 99 MG/DL 09/24/2022 6:18 AM CDT [facility] BUN 18 7 - 18 MG/DL 09/24/2022 6:18 AM CDT [facility] CREATININE S/P/B 1.07(H) 0.55 - 1.02 MG/DL 09/24/2022 6:18 AM CDT [facility] SODIUM S/P/B 136 136 - 145 MMOL/L 09/24/2022 6:18 AM CDT [facility] POTASSIUM S/P/B 4.1 3.5 - 5.1 MMOL/L 09/24/2022 6:18 AM CDT [facility] CHLORIDE S/P/B 102 100 - 108 MMOL/L 09/24/2022 6:18 AM CDT [facility] CO2 28.0 21 - 32 MMOL/L 09/24/2022 6:18 AM CDT [facility] CALCIUM S/P/B 10.2(H) 8.5 - 10.1 MG/DL 09/24/2022 6:18 AM CDT [facility] BILIRUBIN TOTAL S/P/B 0.6 0.2 - 1.2 MG/DL 09/24/2022 6:18 AM CDT [facility] Comment: THIS ASSAY IS NOT RECOMMENDED FOR PATIENTS UNDERGOING TREATMENT WITH ELTROMBOPAG DUE TO THE POTENTIAL FOR FALSELY ELEVATED RESULTS. TOTAL PROTEIN S/P/B 9.3(H) 6.4 - 8.2 G/DL 09/24/2022 6:18 AM CDT [facility] ALBUMIN S/P/B 3.8 3.4 - 5.0 G/DL 09/24/2022 6:18 AM CDT [facility] AST 20 15 - 37 U/L 09/24/2022 6:18 AM CDT [facility] ALT 41 14 - 55 U/L 09/24/2022 6:18 AM CDT [facility] ALKALINE PHOSPHATASE S/P/B 153(H) 50 - 136 U/L 09/24/2022 6:18 AM CDT [facility] ANION GAP 6.0 5 - 15 MMOL/L 09/24/2022 6:18 AM CDT [facility] BUN CREATININE RATIO 16.8 6 - 26 09/24/2022 6:18 AM CDT [facility] A/G RATIO 0.7(L) 1.0 - 2.0 RATIO 09/24/2022 6:18 AM CDT [facility] GFR ESTIMATE 63(L) >90 ML/MIN/1.7 3 M2 09/24/2022 6:18 AM CDT [facility] Comment: NOTE: eGFR is not calculated for patients <18 years of age. This is an estimated GFR calculation using the new CKD EPI creatinine equation without race and so does not require a correction factor for race. This estimated GFR should not be used for calculating drug doses. 09/24/2022 5:35 AM CDT us Hubert Sullivan MD LABORATORY Final Result [facility] [address] [place] [address], * CBC W/DIFF AUTOMATED (09/24/2022 5:35 AM CDT) WBC 9.9 4.5 - 11.0 x10'3/uL 09/24/2022 5:51 AM CDT [facility] RBC 4.30 4.20 - 5.40 x10'6/uL 09/24/2022 5:51 AM CDT [facility] HGB 12.7 12.0 - 16.0 G/DL 09/24/2022 5:51 AM CDT [facility] HCT 38.3 38.0 - 48.0 % 09/24/2022 5:51 AM CDT [facility] MCV 89.1 81.0 - 99.0 FL 09/24/2022 5:51 AM CDT [facility] MCH 29.5 27.0 - 31.0 PG 09/24/2022 5:51 AM CDT [facility] MCHC 33.2 32.0 - 36.0 G/DL 09/24/2022 5:51 AM CDT [facility] RDW 13.0 11.5 - 14.5 % 09/24/2022 5:51 AM CDT [facility] PLT 256 130 - 400 x10'3/uL 09/24/2022 5:51 AM CDT [facility] MPV 11.5 9.3 - 12.2 FL 09/24/2022 5:51 AM CDT [facility] DIFFERENTIAL TYPE AUTOMATED DIFFERENTIAL 09/24/2022 5:51 AM CDT [facility] NEUTROPHILS % 58.4 % 09/24/2022 5:51 AM CDT [facility] LYMPHOCYTES % 35.4 % 09/24/2022 5:51 AM CDT [facility] MONOCYTES % 4.4 % 09/24/2022 5:51 AM CDT [facility] EOSINOPHILS 1.0 % 09/24/2022 5:51 AM CDT [facility] BASOPHILS 0.6 % 09/24/2022 5:51 AM CDT [facility] IMMATURE GRANS % 0.2 % 09/25/19 5:51 AM CDT [facility] ABS. NEUTROPHILS TOTAL 5.75 1.80 - 7.70 x10'3/uL 09/24/2022 5:51 AM CDT [facility] ABS. LYMPHOCYTES 3.49 1.00 - 4.80 x10'3/uL 09/24/2022 5:51 AM CDT [facility] ABS. MONOCYTES 0.43 0.24 - 0.86 x10'3/uL 09/24/2022 5:51 AM CDT [facility] ABS. EOSINOPHILS 0.10 0.04 - 0.36 x10'3/uL 09/24/2022 5:51 AM CDT [facility] ABS. BASOPHILS 0.06 0.01 - 0.08 x10'3/uL 09/24/2022 5:51 AM CDT [facility] ABS. IMMATURE GRANULOCYTES 0.02 0.00 - 0.49 x10'3/uL 09/24/2022 5:51 AM CDT [facility] 09/24/2022 5:35 AM CDT us Hubert Sullivan MD LABORATORY Final Result [facility] [address] [place] [address], [place] [phone] documented in this encounter Visit Diagnoses Diagnosis [...] Total Score: 0 03/08/19 22 9:30 AM SR. MANAGER MARKETING documented as of this encounter Care Teams Fire Supervisor Relationship Specialty Start Date End Date Abiodun Segura II, MD [address] [place] [address] PCP - General FAMILY PRACTICE 03/09/21 [place] [address] [place] [address] PODIATRY/SURGERY 05/05/22 documented as of this encounter
--- OUTSIDE RECORDS SUMMARY | 2024-03-03 01:22 | XMS_ITS | Encounter Summary ---
Author Organization [facility] Address [address] [place] [address]. [place] [address] [place] [address] Care Team Providers Care Analysis Tester Name Role Phone Colton SILVEIRA MD, Abiodun Rushing Primary Care Provider Victoriano Langston MD Unavailable [phone] Encounter Details Date Type Department Care Team [...] slept in a fpc (including now)? No 09/03/2022 Comments No Sex [...] st Contact Info) Description 03/14/2024 11:45 AM SMELTER LINER Office Visit [facility] [phone] Marvin Mckeon MD Three [facility] [address] [place] [address] 03/20/2024 11:30 AM SMELTER LINER Office Visit [facility] Family Medicine - [place] 100 [place] [phone] Abiodun Segura II, MD 100 [place] [address] documented as of this encounter Visit Diagnoses Not on filedocumented in this encounter Additional Health Concerns Assessment Noted Time PHQ-9 Depression Total Score: 0 03/08/19 22 9:30 AM SMELTER LINER documented as of this encounter Care Teams Analysis Tester Relationship Specialty Start Date End Date Abiodun Segura II, MD [address] [place] [address] PCP - General FAMILY PRACTICE 03/09/21 [place] [address] [place] [address] PODIATRY/SURGERY 05/05/22 documented as of this encounter
--- OUTSIDE RECORDS SUMMARY | 2024-03-03 01:22 | XMS_ITS | Encounter Summary ---
Author Organization [facility] Address [address] [place] [address]. [place] [address] [place] [address] Care Team Providers Care Salt Washer Name Role Phone Colton SILVEIRA MD, Abiodun Rushing Primary Care Provider Victoriano Langston MD Unavailable [phone] Encounter Details Date Type Department Care Team [...] st Contact Info) Description 03/14/2024 11:45 AM ORACLE DATA WAREHOUSE DEVELOPER Office Visit [facility] [address] Marvin Mckeon MD [facility] [address] [place] [address] 03/20/2024 11:30 AM ORACLE DATA WAREHOUSE DEVELOPER Office Visit [facility] Family Medicine - [address] [phone] Abiodun Segura II, MD [address] [place] [address] documented as of this encounter Visit Diagnoses Not on filedocumented in this encounter Additional Health Concerns Assessment Noted Time PHQ-9 Depression Total Score: 0 03/08/19 22 9:30 AM ORACLE DATA WAREHOUSE DEVELOPER documented as of this encounter Care Teams Salt Washer Relationship Specialty Start Date End Date Abiodun Segura II, MD 100 [place] [address] PCP - General FAMILY PRACTICE 03/09/21 [place] [address] [place] [address] PODIATRY/SURGERY 05/05/22 documented as of this encounter
--- OUTSIDE RECORDS SUMMARY | 2024-03-03 01:22 | XMS_ITS | Encounter Summary ---
Author Organization [facility] Address [address] [place] [address]. [place] [address] [place] [address] Care Team Providers Care Linen Grader Name Role Phone Colton SILVEIRA MD, Abiodun Rushing Primary Care Provider Victoriano Langston MD Unavailable [phone] Encounter Details Date Type Department Care Team (Late st Contact Info) Description 09/12/2022 Hospital Follow-up Call [facility] Med/Surg [address]th [place] [address] Teresa Amaya RN Social History [...] Recorded Patient Health Questionnaire-2 Score 0 05/05/2022 [facility] - Occupational [...] Author Status Yes 09/03/2022 9:25 PM CDT zAeem Tom RN Active documented as of this [...] st Contact Info) Description 03/14/2024 11:45 AM WEBSITE/BLOG EDITOR Office Visit [facility] [phone] Marvin Mckeon MD [facility] [address] [place] [address] 03/20/2024 11:30 AM WEBSITE/BLOG EDITOR Office Visit [facility] Family Medicine - [place] 100 [place] [phone] Abiodun Segura II, MD 100 [place] [address] documented as of this encounter Goals Goal Patient Goal Type Associated Problems Recent Progress Patient-Stated? Author Family - family caregiver with be involved in care transitions and discharge planning Lifestyle No Natty Cheek, RN documented as of this encounter Visit Diagnoses Not on filedocumented in this encounter Additional Health Concerns Assessment Noted Time PHQ-9 Depression Total Score: 0 03/08/19 9:30 AM WEBSITE/BLOG EDITOR documented as of this encounter Care Teams Linen Grader Relationship Specialty Start Date End Date Abiodun Segura II, MD 100 [place] [address] PCP - General FAMILY PRACTICE 03/09/21 [place] [address] [place] [address] PODIATRY/SURGERY 05/05/22 documented as of this encounter
--- OUTSIDE RECORDS SUMMARY | 2024-03-03 01:23 | XMS_ITS | Encounter Summary ---
Author Organization [facility] Address [address] [place] [address]. [place], [place] [address] [place] [address] Care Team Providers Care Bus Or Truck Garage Mechanic Name Role Phone Colton SILVEIRA MD, Abiodun Rushing Primary Care Provider Reason for Visit * Auth/Cert Specialty Diagnoses / Procedures Referred By Lyla chaney Referred To Contact Home Health Services / [facility] Home Care [address] [place] [address] [place] [address] Phone: tel: fax: Referral ID Status Reason Start Date Expiration Date Visits Re quested Visits Authorized [id number] 1 1 Encounter Details Date Type Department Care Team (Late st Contact Info) Description 01/31/2022 11:30 AM BEHAVIORAL HEALTH COUNSELOR Home Care Visit [facility] Home [address] [place] [address] [place] [address] Ysabel Adams RN SN HOME VISIT Social [...] Coronavirus/COVID-19? No / Unsure 01/10/2022 11:53 AM BEHAVIORAL HEALTH COUNSELOR documented as of this encounter Last Filed Vital Signs Vital Sign Reading Time Taken Comments Blood Pressure 108/60 01/31/2022 11:19 AM BEHAVIORAL HEALTH COUNSELOR Pulse 88 01/31/2022 11:19 AM BEHAVIORAL HEALTH COUNSELOR Temperature 36.6 ??C (97.8 ??F) 01/31/2022 11:[address] Respiratory Rate 18 01/31/2022 11:19 AM BEHAVIORAL HEALTH COUNSELOR Oxygen Saturation 100% 01/31/2022 11:19 AM BEHAVIORAL HEALTH COUNSELOR Inhaled Oxygen Concentration - - Weight - [...] st Contact Info) Description 03/14/2024 11:45 AM BEHAVIORAL HEALTH COUNSELOR Office Visit [facility] [phone] Marvin Mckeon MD Three [facility] [address] [place] [address] 03/20/2024 11:30 AM BEHAVIORAL HEALTH COUNSELOR Office Visit [facility] Medical [facility] Family Medicine - [place] 100 [place] [phone] Abiodun Segura II, MD 100 [place], [place] [phone] documented as of this encounter Visit Diagnoses Not on filedocumented in this encounter Additional Health Concerns Assessment Noted Time PHQ-9 Depression Total Score: 0 03/08/19 22 9:30 AM BEHAVIORAL HEALTH COUNSELOR documented as of this encounter Home Health Visit - Care Plan Visit Details Visit Type -SN - Home Visit Discipline -Penitentiary Problems Problem Description Start Date Status Goals [...] infection .?? Results to Dr Segura fax [phone] and IV care fax [phone]. Problem:Learning/Tea charisse Needs - IV Therapy Goal:Patient/caregiv er demonstrates ability to safely perform and/or administer IV flush Completed Obtained from PICC. Patient tolerated good. Specimen taken to [facility]. IV Administration Description: Skilled nurse and [...] in daily log. Instruct to notify physician forestry extension specialist of fasting blood sugar if <70mg/dl or [...] Completed documented in this encounter Care Teams Bus Or Truck Garage Mechanic Relationship Specialty Start Date End Date Abioudn eSgura II, MD [address] [place] [address] PCP - General FAMILY PRACTICE 03/09/21 documented as of this encounter
--- OUTSIDE RECORDS SUMMARY | 2024-03-03 01:23 | XMS_ITS | Encounter Summary ---
Author Organization [facility] Address [address] [place] [address]. [place], [place] [address] [place] [address] Care Team Providers Care Sculpture Conservator Name Role Phone Colton SILVEIRA MD, Abiodun Rushing Primary Care Provider Reason for Visit * Auth/Cert Specialty Diagnoses / Procedures Referred By Lyla chaney Referred To Contact Home Health Services / [facility] Home Care [address] [place] [address] [place] [address] Phone: tel: fax: Referral ID Status Reason Start Date Expiration Date Visits Re quested Visits Authorized [id number] 1 1 Encounter Details Date Type Department Care Team (Late st Contact Info) Description 01/24/2022 10:45 AM DATA ENTRY PROCESSOR Home Care Visit [facility] Home [address] [place] [address] [place] [address] Ysabel Adams RN SN HOME VISIT Social [...] Coronavirus/COVID-19? No / Unsure 01/10/2022 11:53 AM DATA ENTRY PROCESSOR documented as of this encounter Last Filed Vital Signs Vital Sign Reading Time Taken Comments Blood Pressure 120/78 01/24/2022 12:09 PM DATA ENTRY PROCESSOR Pulse 88 01/24/2022 12:09 PM DATA ENTRY PROCESSOR Temperature 36.6 ??C (97.9 ??F) 01/24/2022 12:[address] Respiratory Rate 18 01/24/2022 12:09 PM DATA ENTRY PROCESSOR Oxygen Saturation 100% 01/24/2022 12:09 PM DATA ENTRY PROCESSOR Inhaled Oxygen Concentration - - Weight - [...] Info) Description 03/14/2024 11:45 AM DATA ENTRY PROCESSOR Office Visit [facility] [phone] Marvin Mckeon MD [address] [facility] [address] [place] [address] 03/20/2024 11:30 AM DATA ENTRY PROCESSOR Office Visit [facility] Family Medicine - [place] 100 [place] [phone] Abiodun Segura II, MD 100 [place], [place] [phone] documented as of this encounter Visit Diagnoses Not on filedocumented in this encounter Additional Health Concerns Assessment Noted Time PHQ-9 Depression Total Score: 0 03/08/19 22 9:30 AM DATA ENTRY PROCESSOR documented as of this encounter Home Health [...] infection .?? Results to Dr Segura fax [phone] and IV care fax [phone]. Problem:Learning/Tea charisse Needs - IV Therapy Goal:Patient/caregiv er demonstrates ability to safely perform and/or administer IV flush Completed Obtained labs from [facility] without difficulty. Specimen taken to [facility]. IV Administration Description: Skilled nurse and Caregiver [...] in daily log. Instruct to notify physician youth care worker of fasting blood sugar if <70mg/dl [...] Completed documented in this encounter Care Teams Sculpture Conservator Relationship Specialty Start Date End Date Abiodun Segura II, MD [address] [place] [address] PCP - General FAMILY PRACTICE 03/09/21 documented as of this encounter
--- OUTSIDE RECORDS SUMMARY | 2024-03-03 01:23 | XMS_ITS | Encounter Summary ---
Author Organization [facility] Address [address] [place] [address]. [place] [address] [place] [address] Care Team Providers Care Automobile Club Information Clerk Name Role Phone Colton SILVEIRA MD, Abiodun Rushing Primary Care Provider Victoriano Langston MD Unavailable [phone] Encounter Details Date Type Department Care Team (Late st Contact Info) Description 06/26/2022 11:31 AM CDT - 06/26/2022 11:59 PM T Hospital Encounter [facility] [place], [place] [phone] Abiodun Segura II, MD [address] [place] [address] Discharge Disposition: Home or Self Care [...] arthropathy, with long-term current use of insulin ([facility]/HCC) USE 1 SYRINGE TWICE DAILY 100 each 3 08/08/19 23 cyclobenzaprine (FLEXERIL) 10 MG tabletIndications:M uscle spasm Take 1 tablet (10 mg total) by mouth 3 (three) times daily as needed. 90 tablet 5 3 10/12/19 23 dulaglutide (TRULICITY) 1.5 MG/0.5ML injectionIndication s:Type 2 diabetes mellitus with diabetic neuropathic arthropathy, with long-term current use of insulin ([facility]/HCC) Inject 3 mg into the skin once a week. 4 mL 5 3 09/04/19 23 dulaglutide (TRULICITY) 1.5 MG/0.5ML injectionIndication s:Type 2 diabetes mellitus with diabetic neuropathic arthropathy, with long-term current use of insulin ([facility]/HCC) Inject 1.5 mg into the skin [...] presence unspecified, unspecified laterality, unspecified retinopathy severity ([facility]/HCC) INJECT 60 UNITS SUBCUTANEOUSLY ONCE DAILY [...] st Contact Info) Description 03/14/2024 11:45 AM ENGINEERED WOOD DESIGNER Office Visit [facility] [address] Marvin Mckeon MD [address] [facility] [address] [place] [address] 03/20/2024 11:30 AM ENGINEERED WOOD DESIGNER Office Visit [facility] Family Medicine - [place] 100 [place] [phone] Abiodun Segura II, MD [address] [place] [address] documented as of this encounter Procedures Procedure Name Priority Date/Time Associated Diagnosis Comments HEMOGLOBIN, GLYCOSYLATED Routine 06/26/2022 11:46 AM CDT Type 2 diabetes mellitus with retinopathy, with long-term current use of insulin, macular edema presence unspecified, unspecified laterality, unspecified retinopathy severity ([facility]) COMPREHENSIVE METABOLIC PANEL Routine 06/26/2022 11:46 AM CDT Primary hypertension LIPID PANEL Routine 06/26/2022 11:46 AM CDT Hypercholesteremia CBC W/DIFF AUTOMATED Routine 06/26/2022 11:46 AM CDT Primary hypertension documented in this encounter Results * (ABNORMAL) LIPID PANEL (06/26/2022 11:46 AM CDT) CHOLESTEROL 184 <200 MG/DL 06/26/2022 12:20 PM CDT [facility] TRIGLYCERIDES 238(H) <150 MG/DL 06/26/2022 12:20 PM CDT [facility] HDL 44 >40.0 MG/DL 06/26/2022 12:20 PM CDT [facility] LDL (CALCULATED) 92 <100 MG/DL 06/26/2022 12:20 PM CDT [facility] NON HDL CHOLESTEROL 140(H) <130 MG/DL 06/26/2022 12:20 PM CDT [facility] CHOL/HDL RATIO 4.2 0.0 - 4.5 06/26/2022 12:20 PM T [facility] VLDL CALCULATION 48 5 - 55 MG/DL 06/26/2022 12:20 PM T [facility] LIPID INTERPRETATION 06/26/2022 12:20 PM T [facility] Comment: NIH CONCENSUS REPORT RECOMMENDATIONS: [...] Segura II, MD LABORATORY Final R esult [facility] [address] [place] [address], * (ABNORMAL) COMPREHENSIVE METABOLIC PANEL (06/26/2022 11:46 AM CDT) GLUCOSE 152(H) 70 - 99 MG/DL 06/26/2022 12:20 PM CDT [facility] BUN 16 7 - 18 MG/DL 06/26/2022 12:20 PM CDT [facility] CREATININE S/P/B 0.97 0.55 - 1.02 MG/DL 06/26/2022 12:20 PM CDT [facility] SODIUM S/P/B 136 136 - 145 MMOL/L 06/26/2022 12:20 PM CDT [facility] POTASSIUM S/P/B 4.0 3.5 - 5.1 MMOL/L 06/26/2022 12:20 PM CDT [facility] CHLORIDE S/P/B 105 100 - 108 MMOL/L 06/26/2022 12:20 PM CDT [facility] CO2 29.2 21 - 32 MMOL/L 06/26/2022 12:20 PM CDT [facility] CALCIUM S/P/B 9.4 8.5 - 10.1 MG/DL 06/26/2022 12:20 PM CDT [facility] BILIRUBIN TOTAL S/P/B 0.4 0.2 - 1.2 MG/DL 06/26/2022 12:20 PM T [facility] Comment: THIS ASSAY IS NOT RECOMMENDED FOR PATIENTS UNDERGOING TREATMENT WITH ELTROMBOPAG DUE TO THE POTENTIAL FOR FALSELY ELEVATED RESULTS. TOTAL PROTEIN S/P/B 8.6(H) 6.4 - 8.2 G/DL 06/26/2022 12:20 PM T [facility] ALBUMIN S/P/B 3.4 3.4 - 5.0 G/DL 06/26/2022 12:20 PM T [facility] AST 30 15 - 37 U/L 06/26/2022 12:20 PM T [facility] ALT 39 14 - 55 U/L 06/26/2022 12:20 PM T [facility] ALKALINE PHOSPHATASE S/P/B 135 50 - 136 U/L 06/26/2022 12:20 PM T [facility] ANION GAP 1.8(L) 5 - 15 MMOL/L 06/26/2022 12:20 PM T [facility] BUN CREATININE RATIO 16.6 6 - 26 06/26/2022 12:20 PM T [facility] A/G RATIO 0.7(L) 1.0 - 2.0 RATIO 06/26/2022 12:20 PM [facility] GFR ESTIMATE 71(L) >90 ML/MIN/1.7 3 M2 06/26/2022 12:20 PM [facility] Comment: NOTE: [...] Segura II, MD LABORATORY Final R esult [facility] [address] [place] [address], * (ABNORMAL) CBC W/DIFF AUTOMATED (06/26/2022 11:46 AM CDT) [facility] WBC 8.1 4.5 - 11.0 x10'3/uL 06/26/2022 11:56 AM CDT [facility] RBC 3.98(L) 4.20 - 5.40 x10'6/uL 06/26/2022 11:56 AM CDT [facility] HGB 11.9(L) 12.0 - 16.0 G/DL 06/26/2022 11:56 AM CDT [facility] HCT 36.0(L) 38.0 - 48.0 % 06/26/2022 11:56 AM CDT [facility] MCV 90.5 81.0 - 99.0 FL 06/26/2022 11:56 AM CDT [facility] MCH 29.9 27.0 - 31.0 PG 06/26/2022 11:56 AM CDT [facility] MCHC 33.1 32.0 - 36.0 G/DL 06/26/2022 11:56 AM CDT [facility] RDW 13.3 11.5 - 14.5 % 06/26/2022 11:56 AM CDT [facility] PLT 272 130 - 400 x10'3/uL 06/26/2022 11:56 AM CDT [facility] MPV 10.8 9.3 - 12.2 FL 06/26/2022 11:56 AM CDT [facility] DIFFERENTIAL TYPE AUTOMATED DIFFERENTIAL 06/26/2022 11:56 AM CDT [facility] NEUTROPHILS % 57.3 % 06/26/2022 11:56 AM CDT [facility] LYMPHOCYTES % 36.4 % 06/26/2022 11:56 AM CDT [facility] MONOCYTES % 4.3 % 06/26/2022 11:56 AM CDT [facility] EOSINOPHILS 1.1 % 06/26/2022 11:56 AM CDT [facility] BASOPHILS 0.5 % 06/26/2022 11:56 AM CDT [facility] IMMATURE GRANS % 0.4 % 06/27/19 11:56 AM CDT [facility] ABS. NEUTROPHILS TOTAL 4.61 1.80 - 7.70 x10'3/uL 06/26/2022 11:56 AM CDT [facility] ABS. LYMPHOCYTES 2.93 1.00 - 4.80 x10'3/uL 06/26/2022 11:56 AM CDT [facility] ABS. MONOCYTES 0.35 0.24 - 0.86 x10'3/uL 06/26/2022 11:56 AM CDT [facility] ABS. EOSINOPHILS 0.09 0.04 - 0.36 x10'3/uL 06/26/2022 11:56 AM CDT [facility] ABS. BASOPHILS 0.04 0.01 - 0.08 x10'3/uL 06/26/2022 11:56 AM CDT [facility] ABS. IMMATURE GRANULOCYTES 0.03 0.00 - 0.49 x10'3/uL 06/26/2022 11:56 AM T [facility] 06/26/2022 11:4 6 AM CDT Abiodun Segura II, MD LABORATORY Final R esult Performing Organization Address City/[facility]/ZIP Co de Phone Number [facility] [address] [place] [address], * (ABNORMAL) HEMOGLOBIN, GLYCOSYLATED (06/26/2022 11:46 AM CDT) HGB A1C 8.3(H) <5.7 % 06/26/2022 12:58 PM CDT [facility] Comment: ADA GUIDELINES 2010 5.7 TO 6.4% INCREASED RISK OF DIABETES > OR = 6.5% CONSISTENT WITH DIABETES ESTIMATED AVG GLUCOSE 192 mg/dL 06/26/2022 12:58 PM CDT [facility] 06/26/2022 11:4 6 AM CDT Abiodun Segura II, MD LABORATORY Final R esult Performing Organization Address [facility] Co de Phone Number [facility] [address] [place] [address], documented in this encounter Visit Diagnoses Diagnosis Type 2 diabetes mellitus with retinopathy, with long-term current use of insulin, macular edema presence unspecified, unspecified laterality, unspecified retinopathy severity ([facility]/HCC) Primary hypertension Unspecified essential hypertension Hypercholesteremia Pure hypercholesterolemia documented in this encounter Additional Health Concerns Assessment Noted Time PHQ-9 Depression Total Score: 0 03/08/19 22 9:30 AM ENGINEERED WOOD DESIGNER documented as of this encounter Care Teams Automobile Club Information Clerk Relationship Specialty Start Date End Date Abiodun Segura II, MD [address] [place] [address] PCP - General FAMILY PRACTICE 03/09/21 [place] [address] [place] [address] PODIATRY/SURGERY 05/05/22 documented as of this encounter
--- OUTSIDE RECORDS SUMMARY | 2024-03-03 01:23 | XMS_ITS | Encounter Summary ---
Author Organization [facility] Address [address] [place] [address]. [place], [place] [address] [place] [address] Care Team Providers Care Direct Care Staffer Name Role Phone Colton SILVEIRA MD, Abiodun Rushing Primary Care Provider Reason for Visit * Auth/Cert Specialty Diagnoses / Procedures Referred By Lyla chaney Referred To Contact Home Health Services / [facility] Care [address] [place] [address] Phone: tel: fax: Referral ID Status Reason Start Date Expiration Date Visits Re quested Visits Authorized [id number] 1 1 Encounter Details Date Type Department Care Team (Late st Contact Info) Description 02/02/2022 Home Care Visit [facility] Home Care [address] [place] [address] [place] [address] Cindy Nguyễn, RN CASE COMMUNICATION Social History [...] Coronavirus/COVID-19? No / Unsure 01/10/2022 11:53 AM RECYCLING OR RUBBISH COLLECTOR documented as of this encounter Functional Status [...] st Contact Info) Description 03/14/2024 11:45 AM RECYCLING OR RUBBISH COLLECTOR Office Visit [facility] [phone] Marvin Mckeon MD [facility] Suite [facility] [place] [address] 03/20/2024 11:30 AM RECYCLING OR RUBBISH COLLECTOR Office Visit [facility] Medical Group Family Medicine - [address] [place] [address] Abiodun Segura II, MD 100 [place] [address] documented as of this encounter Visit Diagnoses Not on filedocumented in this encounter Additional Health Concerns Assessment Noted Time PHQ-9 Depression Total Score: 0 03/08/19 9:30 AM RECYCLING OR RUBBISH COLLECTOR documented as of this encounter Care Teams Direct Care Staffer Relationship Specialty Start Date End Date Abiodun Segura II, MD [address] [place] [address] PCP - General FAMILY PRACTICE 03/09/21 documented as of this encounter
--- OUTSIDE RECORDS SUMMARY | 2024-03-03 01:23 | XMS_ITS | Encounter Summary ---
Author Organization [facility] Address [address] [place] [address]. [place] [address] [place] [address] Care Team Providers Care Barn Operator Name Role Phone Colton SILVEIRA MD, Abiodun Rushing Primary Care Provider Reason for Visit * Reason Onset Date Comments Record Request 04/04/2022 Encounter Details Date Type Department Care Team (Late st Contact Info) Description 04/04/2022 Telephone [facility] Group Family Medicine [place] 100 [place] [address] Abiodun Segura II, MD [address] [place] [address] Record Request Social History Tobacco [...] Coronavirus/COVID-19? No / Unsure 04/04/2022 11:24 AM SHEAR OPERATOR HELPER documented as of this encounter Functional [...] I am faxing results to Dr Segura. R OPERATOR HELPER R OPERATOR HELPER R OPERATOR HELPER R OPERATOR HELPER documented in this encounter Plan of Treatment Upcoming Encounters Date Type Department Care Team (Late st Contact Info) Description 03/14/2024 11:45 AM SHEAR OPERATOR HELPER Office Visit [facility] [phone] Marvin Mckeon MD Three [facility] [address] [place], [place] [address] 03/20/2024 11:30 AM SHEAR OPERATOR HELPER Office Visit [facility] Medical Group Family Medicine - [place] [address] [place] [phone] Abiodun Segura II, MD [address] [place] [address] documented as of this encounter Visit Diagnoses Not on filedocumented in this encounter Additional Health Concerns Assessment Noted Time PHQ-9 Depression Total Score: 0 03/08/19 9:30 AM SHEAR OPERATOR HELPER documented as of this encounter Care Teams Barn Operator Relationship Specialty Start Date End Date Abiodun Segura II, MD [address] [place], [place] [phone] PCP - General FAMILY PRACTICE 03/09/21 documented as of this encounter
--- OUTSIDE RECORDS SUMMARY | 2024-03-03 01:23 | XMS_ITS | Encounter Summary ---
Author Organization [facility] Address [address] [place] [address]. [place], [place] [address] [place] [address] Care Team Providers Care Propagation Worker Name Role Phone Colton SILVEIRA MD, Abiodun Rushing Primary Care Provider Reason for Visit * Auth/Cert Specialty Diagnoses / Procedures Referred By Lyla chaney Referred To Contact Home Health Services / [facility] HOME HEALTH [facility] Home Care [address] [place] [address] [place] [address] Phone: tel: fax: Referral ID Status Reason Start Date Expiration Date Visits Re quested Visits Authorized [id number] 1 1 Encounter Details Date Type Department Care Team (Latest Contact Info) Description 02/03/2022 9:30 AM OIL HOUSE ATTENDANT Home Care Visit [facility] Home [address] [place] [address] [place] [address] Mauricio Abbott, RN [phone] (Work) SN OASIS DISCHARGE/ASSESSMENT Social History [...] Coronavirus/COVID-19? No / Unsure 01/10/2022 11:53 AM OIL HOUSE ATTENDANT documented as of this encounter Last Filed Vital Signs Vital Sign Reading Time Taken Comments Blood Pressure 126/74 02/03/2022 10:00 AM OIL HOUSE ATTENDANT Pulse 78 02/03/2022 10:00 AM OIL HOUSE ATTENDANT Temperature 36.6 ??C (97.9 ??F) 02/03/2022 10:[address] Respiratory Rate 18 02/03/2022 10:00 AM OIL HOUSE ATTENDANT Oxygen Saturation 98% 02/03/2022 10:00 AM OIL HOUSE ATTENDANT Inhaled Oxygen Concentration - - Weight - [...] st Contact Info) Description 03/14/2024 11:45 AM OIL HOUSE ATTENDANT Office Visit [facility]-[address] [phone] Marvin Mckeon MD Three [facility] [address] [place], [place] [phone] 03/20/2024 11:30 AM OIL HOUSE ATTENDANT Office Visit [facility] Medical Group Family Medicine - [place] 100 [place] [phone] Abiodun Segura II, MD 100 [place] [address] documented as of this encounter Visit Diagnoses Not on filedocumented in this encounter Additional Health Concerns Assessment Noted Time PHQ-9 Depression Total Score: 0 03/08/19 9:30 AM OIL HOUSE ATTENDANT documented as of this encounter Home Health Visit - Care Plan Visit Details Visit Type -SN - OASIS Disch arge Discipline -Chcf Problems Problem Description Start Date Status Goals [...] infection .?? Results to Dr Segura fax [phone] and IV care fax [phone]. Problem:Learning/Tea charisse Needs - IV Therapy Goal:Patient/caregiv [...] in daily log. Instruct to notify physician chemical milling processor of fasting blood sugar if <70mg/dl or [...] Completed documented in this encounter Care Teams Propagation Worker Relationship Specialty Start Date End Date Abiodun Segura II, MD [address] [place] [address] PCP - General FAMILY PRACTICE 03/09/21 documented as of this encounter
--- OUTSIDE RECORDS SUMMARY | 2024-03-03 01:23 | XMS_ITS | Encounter Summary ---
Author Organization [facility] Address [address] [place] [address]. [place] [address] [place] [address] Care Team Providers Care Poke In Name Role Phone Colton SILVEIRA MD, Abiodun Rushing Primary Care Provider Encounter Details Date Type Department Care Team (Late st Contact Info) Description 02/15/2022 1:18 PM STOPPER SETTER - 02/15/2022 11:59 PM [facility] Hospital Encounter [facility] [address] [place] [id number] Abiodun Segura II, MD [address] [place] [address] Discharge Disposition: Home or Self Care [...] Coronavirus/COVID-19? No / Unsure 02/15/2022 1:18 PM STOPPER SETTER documented as of this encounter Functional [...] scheduled in February for in person exam. PER SETTER documented in this encounter Plan of Treatment Upcoming Encounters Date Type Department Care Team (Late st Contact Info) Description 03/14/2024 11:45 AM STOPPER SETTER Office Visit [facility] [phone] Marvin Mckeon MD Three [facility] [address] [place], [place] [phone] 03/20/2024 11:30 AM STOPPER SETTER Office Visit [facility] Family Medicine - [place] [address] [place] [phone] Abiodun Segura II, MD [address] [place] [address] documented as of this encounter Procedures Procedure Name Priority Date/Time Associated Diagnosis Comments C-REACTIVE PROTEIN Routine 02/15/2022 1: 24 PM STOPPER SETTER Other chronic osteomyelitis of foot, unspecified laterality (CMS/HCC HHS/HCC) documented in this encounter Results * (ABNORMAL) C-REACTIVE PROTEIN (02/15/2022 1:24 PM STOPPER SETTER) C-REACTIVE PROTEIN 1.84(H) <0.29 mg/dL 02/15/2022 1:56 PM STOPPER SETTER [facility] 02/15/2022 1:24 PM STOPPER SETTER Abiodun Segura II, MD LABORATORY Final R esult [facility] 3 [place] [address], documented in this encounter Visit Diagnoses Diagnosis Other chronic osteomyelitis of foot, unspecified laterality (CMS/HCC HHS/HCC) documented in this encounter Additional Health Concerns Assessment Noted Time PHQ-9 Depression Total Score: 0 03/08/19 22 9:30 AM STOPPER SETTER documented as of this encounter Care Teams Poke In Relationship Specialty Start Date End Date Abiodun Segura II, MD [address] [place] [address] PCP - General FAMILY PRACTICE 03/09/21 documented as of this encounter
--- OUTSIDE RECORDS SUMMARY | 2024-03-03 01:23 | XMS_ITS | Encounter Summary ---
Author Organization [facility] Address [address] [place] [address]. [place], [place] [address] [place] [address] Care Team Providers Care Sap Bpc Developer Name Role Phone Colton SILVEIRA MD, [...] Coronavirus/COVID-19? No / Unsure 01/10/2022 11:53 AM POLYSOMNOGRAPHIC TECH documented as of this encounter Functional [...] st Contact Info) Description 03/14/2024 11:45 AM POLYSOMNOGRAPHIC TECH Office Visit [facility] [phone] [facility] [address] [place] [address] 03/20/2024 11:30 AM POLYSOMNOGRAPHIC TECH Office Visit [facility] Family Medicine - [address] [phone] Abiodun Segura II, MD [address] [place] [address] documented as of this encounter Visit Diagnoses Not on filedocumented in this encounter Additional Health Concerns Assessment Noted Time PHQ-9 Depression Total Score: 0 03/08/19 22 9:30 AM POLYSOMNOGRAPHIC TECH documented as of this encounter Care Teams Sap Bpc Developer Relationship Specialty Start Date End Date Abiodun Segura II, MD [address] [place] [address] PCP - General FAMILY PRACTICE 03/09/21 documented as of this encounter
--- OUTSIDE RECORDS SUMMARY | 2024-03-03 01:23 | XMS_ITS | Encounter Summary ---
Author Organization [facility] Address [address] [place] [address]. [place] [address] [place] [address] Care Team Providers Care Director Of Marketing And Promotions Name Role Phone Colton SILVEIRA MD, Abiodun Rushing Primary Care Provider Victoriano Langston MD Unavailable [phone] Reason for Visit * Reason Onset Date Comments Lab Results 06/26/2022 Encounter Details Date Type Department Care Team (Late st Contact Info) Description 06/26/2022 Telephone [facility] Family Medicine - [place] [address] [place] [address] Abiodun Segura II, MD 100 [place] [address] Lab Results Social History Tobacco [...] Progress Notes * Mariangel Phillips MA - 06/26/2022 9:42 AM CDT Pt aware * Mariangel Phillips MA - 06/26/2022 9:08 AM CDT Pt requesting lab orders * Cristela Pereira - 06/26/2022 9:01 AM CDT Patient needs to have labs drawn before appt tomorrow at [facility]. She is going there now to have fasting labs drawn. Please call with any questions [phone] documented in this encounter Plan of Treatment Upcoming Encounters Date Type Department Care Team (Late st Contact Info) Description 03/14/2024 11:45 AM MANAGER DESKTOP Office Visit [facility] [place] [address] [phone] Marvin Mckeon MD Three [facility] [address] [place] [address] 03/20/2024 11:30 AM MANAGER DESKTOP Office Visit [facility] Family Medicine - [place] [address] [place] [phone] Abiodun Segura II, MD 100 [place] [address] documented as of this encounter Visit Diagnoses Not on filedocumented in this encounter Additional Health Concerns Assessment Noted Time PHQ-9 Depression Total Score: 0 03/08/19 22 9:30 AM MANAGER DESKTOP documented as of this encounter Care Teams Director Of Marketing And Promotions Relationship Specialty Start Date End Date Abiodun Segura II, MD 100 [place] [address] PCP - General FAMILY PRACTICE 03/09/21 [place] [address] [place] [address] PODIATRY/SURGERY 05/05/22 documented as of this encounter
--- OUTSIDE RECORDS SUMMARY | 2024-03-03 01:23 | XMS_ITS | Encounter Summary ---
Author Organization [facility] Address [address] [place] [address]. [place] [address] [place] [address] Care Team Providers Care Tree Expert Name Role Phone Colton SILVEIRA MD, Abiodun Rushing Primary Care Provider Encounter Details Date Type Department Care Team (Late st Contact Info) Description 04/05/2022 11:03 AM LINTER TENDER - 04/05/2022 11:59 PM [facility] Hospital Encounter [facility] [address] [place] [phone] Abiodun Segura II, MD [address] [place] [address] Discharge Disposition: Home or Self Care [...] Coronavirus/COVID-19? No / Unsure 04/04/2022 11:24 AM LINTER TENDER documented as of this encounter Functional [...] presence unspecified, unspecified laterality, unspecified retinopathy severity ([facility]) INJECT 60 UNITS SUBCUTANEOUSLY EVERY MORNING. THEN [...] followup in June. Follow up as directed. ER TENDER documented in this encounter Plan of Treatment Upcoming Encounters Date Type Department Care Team (Late st Contact Info) Description 03/14/2024 11:45 AM LINTER TENDER Office Visit [facility] [phone] Marvin Mckeon MD [facility] [address] [place] [address] 03/20/2024 11:30 AM LINTER TENDER Office Visit [facility] Family Medicine - [place] 100 [place] [phone] Abiodun Segura II, MD 100 [place], [place] [address] documented as of this encounter Procedures Procedure Name Priority Date/Time Associated Diagnosis Comments HEMOGLOBIN, GLYCOSYLATED Routine 04/05/2022 11:13 AM LINTER TENDER Type 2 diabetes mellitus with diabetic neuropathic arthropathy, with long-term current use of insulin ([facility]) COMPREHENSIVE METABOLIC PANEL Routine 04/05/2022 11:13 AM LINTER TENDER Primary hypertension LIPID PANEL Routine 04/05/2022 11:13 AM LINTER TENDER Hypercholesteremia CBC W/DIFF AUTOMATED Routine 04/05/2022 11:13 AM LINTER TENDER Primary hypertension documented in this encounter Results * (ABNORMAL) LIPID PANEL (04/05/2022 11:13 AM LINTER TENDER) CHOLESTEROL 182 <200 MG/DL 04/05/2022 11:44 AM LINTER TENDER [facility] TRIGLYCERIDES 210(H) <150 MG/DL 04/05/2022 11:44 AM LINTER TENDER [facility] HDL 41 >40.0 MG/DL 04/05/2022 11:44 AM LINTER TENDER [facility] LDL (CALCULATED) 99 <100 MG/DL 04/05/2022 11:44 AM [facility] NON HDL CHOLESTEROL 141(H) <130 MG/DL 04/05/2022 11:44 AM [facility] CHOL/HDL RATIO 4.4 0.0 - 4.5 04/05/2022 11:44 AM [facility] VLDL CALCULATION 42 5 - 55 MG/DL 04/05/2022 11:44 AM [facility] LIPID INTERPRETATION 04/05/2022 11:44 AM [facility] Comment: NIH CONCENSUS REPORT RECOMMENDATIONS: [...] ? >=160 ?>=130 04/05/2022 11:1 3 AM LINTER TENDER us Abiodun Segura II, MD LABORATORY Final R esult [facility] [address] [place] [address], [place] [phone] * (ABNORMAL) CBC W/DIFF AUTOMATED (04/05/2022 11:13 AM LINTER TENDER) [facility] WBC 8.7 4.5 - 11.0 x10'3/uL 04/05/2022 11:24 AM LINTER TENDER [facility] RBC 4.14(L) 4.20 - 5.40 x10'6/uL 04/05/2022 11:24 AM [facility] HGB 12.7 12.0 - 16.0 G/DL 04/05/2022 11:24 AM LINTER TENDER [facility] HCT 37.9(L) 38.0 - 48.0 % 04/05/2022 11:24 AM LINTER TENDER [facility] MCV 91.5 81.0 - 99.0 FL 04/05/2022 11:24 AM [facility] MCH 30.7 27.0 - 31.0 PG 04/05/2022 11:24 AM LINTER TENDER [facility] MCHC 33.5 32.0 - 36.0 G/DL 04/05/2022 11:24 AM [facility] RDW 12.6 11.5 - 14.5 % 04/05/2022 11:24 AM [facility] PLT 263 130 - 400 x10'3/uL 04/05/2022 11:24 AM [facility] MPV 10.9 9.3 - 12.2 FL 04/05/2022 11:24 AM [facility] DIFFERENTIAL TYPE AUTOMATED DIFFERENTIAL 04/05/2022 11:24 AM LINTER TENDER [facility] NEUTROPHILS % 62.1 % 04/05/2022 11:24 AM [facility] LYMPHOCYTES % 29.9 % 04/05/2022 11:24 AM [facility] MONOCYTES % 4.4 % 04/05/2022 11:24 AM [facility] EOSINOPHILS 2.6 % 04/05/2022 11:24 AM [facility] BASOPHILS 0.8 % 04/05/2022 11:24 AM [facility] IMMATURE GRANS % 0.2 % 04/05/19 11:24 AM [facility] ABS. NEUTROPHILS TOTAL 5.40 1.80 - 7.70 x10'3/uL 04/05/2022 11:24 AM [facility] ABS. LYMPHOCYTES 2.60 1.00 - 4.80 x10'3/uL 04/05/2022 11:24 AM [facility] ABS. MONOCYTES 0.38 0.24 - 0.86 x10'3/uL 04/05/2022 11:24 AM [facility] ABS. EOSINOPHILS 0.23 0.04 - 0.36 x10'3/uL 04/05/2022 11:24 AM [facility] ABS. BASOPHILS 0.07 0.01 - 0.08 x10'3/uL 04/05/2022 11:24 AM [facility] ABS. IMMATURE GRANULOCYTES 0.02 0.00 - 0.49 x10'3/uL 04/05/2022 11:24 AM [facility] 04/05/2022 11:1 3 AM LINTER TENDER us Abiodun Segura II, MD LABORATORY Final R esult [facility] [address] [place] [address], * (ABNORMAL) COMPREHENSIVE METABOLIC PANEL (04/05/2022 11:13 AM LINTER TENDER) [facility] Signature GLUCOSE 154(H) 70 - 99 MG/DL 04/05/2022 11:44 AM [facility] BUN 17 7 - 18 MG/DL 04/05/2022 11:44 AM [facility] CREATININE S/P/B 0.88 0.55 - 1.02 MG/DL 04/05/2022 11:44 AM [facility] SODIUM S/P/B 141 136 - 145 MMOL/L 04/05/2022 11:44 AM [facility] POTASSIUM S/P/B 4.0 3.5 - 5.1 MMOL/L 04/05/2022 11:44 AM [facility] CHLORIDE S/P/B 105 100 - 108 MMOL/L 04/05/2022 11:44 AM [facility] CO2 28.9 21 - 32 MMOL/L 04/05/2022 11:44 AM [facility] CALCIUM S/P/B 9.4 8.5 - 10.1 MG/DL 04/05/2022 11:44 AM [facility] BILIRUBIN TOTAL S/P/B 0.3 0.2 - 1.2 MG/DL 04/05/2022 11:44 AM [facility] Comment: THIS ASSAY IS NOT RECOMMENDED FOR PATIENTS UNDERGOING TREATMENT WITH ELTROMBOPAG DUE TO THE POTENTIAL FOR FALSELY ELEVATED RESULTS. TOTAL PROTEIN S/P/B 9.1(H) 6.4 - 8.2 G/DL 04/05/2022 11:44 AM [facility] ALBUMIN S/P/B 3.3(L) 3.4 - 5.0 G/DL 04/05/2022 11:44 AM [facility] AST 20 15 - 37 U/L 04/05/2022 11:44 AM [facility] ALT 24 14 - 55 U/L 04/05/2022 11:44 AM [facility] ALKALINE PHOSPHATASE S/P/B 149(H) 50 - 136 U/L 04/05/2022 11:44 AM [facility] ANION GAP 7.1 5 - 15 MMOL/L 04/05/2022 11:44 AM [facility] BUN CREATININE RATIO 19.3 6 - 26 04/05/2022 11:44 AM [facility] A/G RATIO 0.6(L) 1.0 - 2.0 RATIO 04/05/2022 11:44 AM [facility] GFR ESTIMATE 80(L) >90 ML/MIN/1.7 3 M2 04/05/2022 11:44 AM [facility] Comment: NOTE: eGFR is not calculated for patients <18 years of age. This is an estimated GFR calculation using the new CKD EPI creatinine equation without race and so does not require a correction factor for race. This estimated GFR should not be used for calculating drug doses. 04/05/2022 11:1 3 AM LINTER TENDER us Abiodun Segura II, MD LABORATORY Final R esult [facility] [address] [place] [address], [place] [phone] * (ABNORMAL) HEMOGLOBIN, GLYCOSYLATED (04/05/2022 11:13 AM LINTER TENDER) HGB A1C 8.0(H) <5.7 % 04/05/2022 3:46 PM LINTER TENDER [facility] Comment: ADA GUIDELINES 2010 5.7 TO 6.4% INCREASED RISK OF DIABETES > OR = 6.5% CONSISTENT WITH DIABETES ESTIMATED AVG GLUCOSE 183 mg/dL 04/05/2022 3:46 PM LINTER TENDER [facility] 04/05/2022 11:1 3 AM LINTER TENDER Abiodun Segura II, MD LABORATORY Final R esult [facility] [address] [place] [address], documented in this encounter Visit Diagnoses Diagnosis Type 2 diabetes mellitus with diabetic neuropathic arthropathy, with long-term current use of insulin ([facility]) Primary hypertension Unspecified essential hypertension Hypercholesteremia Pure hypercholesterolemia documented in this encounter Additional Health Concerns Assessment Noted Time PHQ-9 Depression Total Score: 0 03/08/19 22 9:30 AM LINTER TENDER documented as of this encounter Care Teams Tree Expert Relationship Specialty Start Date End Date Abiodun Segura II, MD [address] [place] [address] PCP - General FAMILY PRACTICE 03/09/21 documented as of this encounter
--- OUTSIDE RECORDS SUMMARY | 2024-03-03 01:23 | XMS_ITS | Encounter Summary ---
Author Organization [facility] Address [address] [place] [address]. [place] [address] [place] [address] Care Team Providers Care Tenderizer Tender Name Role Phone Colton SILVEIRA MD, Abiodun Rushing Primary Care Provider Reason for Visit * Reason Onset Date Comments Medication Problem 04/21/2022 Encounter Details Date Type Department Care Team (Late st Contact Info) Description 04/21/2022 Telephone [facility] Family Medicine - [place] 100 [place] [address] Abiodun Segura II, MD 100 [place] [address] Medication Problem Social History Tobacco [...] Coronavirus/COVID-19? No / Unsure 04/04/2022 11:24 AM HOME THEATRE TECHNICIAN documented as of this encounter Functional [...] on: 04/22/2022 08:25 AM Modules accepted: Orders THEATRE TECHNICIAN * Sydney Cobos MA - 04/21/2022 11:14 AM CST Received fax from [facility]: Can they switch to 1.5 mg Trulicity since 3 mg is on back order? Patient injects 1 syringe subcutaneously once a week on fridays THEATRE TECHNICIAN documented in this encounter Plan of Treatment Upcoming Encounters Date Type Department Care Team (Late st Contact Info) Description 03/14/2024 11:45 AM HOME THEATRE TECHNICIAN Office Visit [facility] [phone] Marvin Mckeon MD Three [facility] [address] [place] [address] 03/20/2024 11:30 AM HOME THEATRE TECHNICIAN Office Visit [facility] Family Medicine - [place] [address] [place] [phone] Abiodun Segura II, MD [address] [place], [place] [phone] documented as of this encounter Visit Diagnoses Diagnosis Type 2 diabetes mellitus with diabetic neuropathic arthropathy, with long-term current use of insulin ([facility])- Primary documented in this encounter Additional Health Concerns Assessment Noted Time PHQ-9 Depression Total Score: 0 03/08/19 9:30 AM HOME THEATRE TECHNICIAN documented as of this encounter Care Teams Tenderizer Tender Relationship Specialty Start Date End Date Abiodun Segura II, MD [address] [place] [phone] PCP - General FAMILY PRACTICE 03/09/21 documented as of this encounter
--- OUTSIDE RECORDS SUMMARY | 2024-03-03 01:23 | XMS_ITS | Encounter Summary ---
Author Organization [facility] Address [address] [place] [address]. [place], [place] [address] [place] [address] Care Team Providers Care Petroleum Plant Operator Name Role Phone Colton SILVEIRA MD, [...] Coronavirus/COVID-19? No / Unsure 01/10/2022 11:53 AM BARBER INSTRUCTOR documented as of this encounter Functional [...] st Contact Info) Description 03/14/2024 11:45 AM BARBER INSTRUCTOR Office Visit [facility] [phone] Marvin Mckeon MD Three [facility] [address] [place] [address] 03/20/2024 11:30 AM BARBER INSTRUCTOR Office Visit [facility] Family Medicine - [place] 100 [place] [phone] Abiodun Segura II, MD 100 [place], [place] [phone] documented as of this encounter Procedures Procedure [...] Depression Total Score: 0 03/08/19 9:30 AM BARBER INSTRUCTOR documented as of this encounter Care Teams Petroleum Plant Operator Relationship Specialty Start Date End Date Abiodun Segura II, MD [address] [place] [address] PCP - General FAMILY PRACTICE 03/09/21 documented as of this encounter
--- OUTSIDE RECORDS SUMMARY | 2024-03-03 01:23 | XMS_ITS | Encounter Summary ---
Author Organization [facility] Address [address] [place] [address]. [place] [address] [place] [address] Care Team Providers Care Sales Mgr Name Role Phone Colton SILVEIRA MD, Abiodun Rushing Primary Care Provider Victoriano Langston MD Unavailable [phone] Reason for Visit * Reason Onset Date Comments Medication Request 05/22/2022 Encounter Details Date Type Department Care Team (Late st Contact Info) Description 05/22/2022 Telephone [facility] Family Medicine - [place] 100 [place] [address] Abiodun Segura II, MD 100 [place] [address] Medication Request Social History Tobacco [...] Cuevas - 05/22/2022 10:18 AM CDT [facility] [place] is requesting a new script for trulicity 3mg pharmacy [phone] documented in this encounter Plan of Treatment Upcoming Encounters Date Type Department Care Team (Late st Contact Info) Description 03/14/2024 11:45 AM CHARGE ENTRY CLERK Office Visit [facility] [phone] Marvin Mckeon MD Three [facility] [address] [place] [address] 03/20/2024 11:30 AM CHARGE ENTRY CLERK Office Visit [facility] Family Medicine - [place] 100 [place] [phone] Abiodun Segura II, MD 100 [place] [address] documented as of this encounter Visit Diagnoses Diagnosis Type 2 diabetes mellitus with diabetic neuropathic arthropathy, with long-term current use of insulin ([facility]) documented in this encounter Additional Health Concerns Assessment Noted Time PHQ-9 Depression Total Score: 0 03/08/19 22 9:30 AM CHARGE ENTRY CLERK documented as of this encounter Care Teams Sales Mgr Relationship Specialty Start Date End Date Abiodun Segura II, MD [address] [place] [address] PCP - General FAMILY PRACTICE 03/09/21 [place] [address] [place] [address] PODIATRY/SURGERY 05/05/22 documented as of this encounter
--- OUTSIDE RECORDS SUMMARY | 2024-03-03 01:23 | XMS_ITS | Encounter Summary ---
Author Organization [facility] Address [address] [place] [address]. [place] [address] [place] [address] Care Team Providers Care Postal Inspector Name Role Phone Colton SILVEIRA MD, Abiodun Rushing Primary Care Provider Reason for Visit * Reason Onset Date Comments Information 04/21/2022 Medication Request 04/21/2022 Encounter Details Date Type Department Care Team (Late st Contact Info) Description 04/21/2022 Telephone [facility] Family Medicine - [place] 100 [place] [address] Abiodun Segura II, MD 100 [place] [address] Information; Medication Request Social History [...] Coronavirus/COVID-19? No / Unsure 04/04/2022 11:24 AM SUPPORT ENGINEER documented as of this encounter Functional [...] 04/24/2022 11:01 AM CST Patient was informed ORT ENGINEER * Sydney Cobos MA - 04/21/2022 1:08 PM CST Please advise/Pharmacy sent over the same request today ORT ENGINEER * Debra Jess Cruz - 04/21/2022 11:19 AM CST [facility] called in stating that they are needing authorization for the following medication. TRULICITY 3MG (is on back order) Pen-Injector. Patient wants to know if she can do TRUCLICITY 1.5 instead of 3 and do two shots a day. ORT ENGINEER documented in this encounter Plan of Treatment Upcoming Encounters Date Type Department Care Team (Late st Contact Info) Description 03/14/2024 11:45 AM SUPPORT ENGINEER Office Visit [facility]-[address] [phone] Marvin Mckeon MD Three [facility] [address] [place] [address] 03/20/2024 11:30 AM SUPPORT ENGINEER Office Visit [facility] Family Medicine - [place] 100 [place] [phone] Abiodun Segura II, MD 100 [place] [address] documented as of this encounter Visit Diagnoses Not on filedocumented in this encounter Additional Health Concerns Assessment Noted Time PHQ-9 Depression Total Score: 0 03/08/19 9:30 AM SUPPORT ENGINEER documented as of this encounter Care Teams Postal Inspector Relationship Specialty Start Date End Date Abiodun Segura II, MD 100 [place], [place] [phone] PCP - General FAMILY PRACTICE 03/09/21 documented as of this encounter
--- OUTSIDE RECORDS SUMMARY | 2024-03-03 01:23 | XMS_ITS | Encounter Summary ---
Author Organization [facility] Address [address] [place] [address]. [place] [address] [place] [address] Care Team Providers Care Lute Packer Or Applier Name Role Phone Colton SILVEIRA MD, Abiodun Rushing Primary Care Provider Victoriano Langston MD Unavailable [phone] Reason for Visit * Reason Comments Medicare Wellness Patient presents tosebas wynn for her Medicare annual wellness visit. Encounter Details Date Type Department Care Team (Late st Contact Info) Description 05/05/2022 10:30 AM CDT Office Visit [facility] Family Medicine - [address] [address] Abiodun Segura II, MD [address] [place] [address] Medicare Wellness (Patient presents today for [...] doctor in a primary care setting (like [facility]) to help lower your risk [...] Written by the doctors and editors at [facility] What are advance directives???--??Advance directives [...] proxy (also called the durable power of case finisher for health care) - The health care [...] process is complete. This topic retrieved from [employer] on: Feb 26, 2018. Topic 04284 Version 11.0 table 1: Resources that can help you make advance directives ?? Address Phone number Website [address] Toll-free: (104) [facility] [ ] http://assets.[facility].org/external_sites/ caregiving/multimedia/EG_AdvanceDirectives.html Aging with Dignity (Five Wishes form) [address] [place] [address] Toll-free: [phone] [phone] [ ] www.agingwithdignity.org CaringInfo ?? Toll-free: www.caringinfo.org [facility] [employer] [address] [place] [address] www.Stagee.org CONSTIPATION Guidelines to help you prevent constipation: [...] and condiments. Pepper, herbs,spices, vinegar, lemon or chuloonawick juices are great for seasoning. Sugar, cocoa [...] for help. Where can I learn more? [employer] https://familydoctor.org/ordo-xiu-ibrzlrxj-fsl-g-yjrdsdg-heart/ [employer] Association http://www.heart.org/HEARTORG/HealthyLiving/HealthyEating/Nutrition/Akpi-kzn-Wbc estyle-Recommendations_[facility]_305855_Article.jsp#.Wxf_Q6oUmUk EXERCISE As an older adult, regular physical [...] your heart beating faster. From pushing a thread marker, to taking a dance class, to biking [...] provide help with meals and other assistance: [facility] of THE [employer] [phone] [employer] PAIN During your health risk assessment [...] pain ever and you need to go [facility]. An exam will help your [...] you. Some of these are massage, acupuncture, child care, and relaxation. What drugs may be [...] VIS provided. Patient is declining the COVID-vaccine. [facility] information sheet provided. The following list [...] Living Will and Short Form Power of Company Accountant for Health Care forms from [facility] Department of Public Health and a sample [...] st Contact Info) Description 03/14/2024 11:45 AM RELIGIOUS EDUCATION DIRECTOR Office Visit [facility] [address] Marvin Mckeon MD [address] [facility] [address] [place] [address] 03/20/2024 11:30 AM RELIGIOUS EDUCATION DIRECTOR Office Visit [facility] Family Medicine - [place] [address] [place] [phone] Abiodun Segura II, MD [address] [place] [address] documented as of this encounter Visit Diagnoses Diagnosis Routine general medical examination at a health care facility- Primary documented in this encounter Additional Health Concerns Assessment Noted Time PHQ-9 Depression Total Score: 0 03/08/19 9:30 AM RELIGIOUS EDUCATION DIRECTOR documented as of this encounter Care Teams Lute Packer Or Applier Relationship Specialty Start Date End Date Abiodun Segura II, MD [address] [place] [address] PCP - General FAMILY PRACTICE 03/09/21 [place] [address] [place] [address] PODIATRY/SURGERY 05/05/22 documented as of this encounter
--- OUTSIDE RECORDS SUMMARY | 2024-03-03 01:23 | XMS_ITS | Encounter Summary ---
Author Organization [facility] Address [address] [place] [address]. [place] [address] [place] [address] Care Team Providers Care Assistant Brand Manager Name Role Phone Colton SILVEIRA MD, Abiodun Rushing Primary Care Provider Encounter Details Date Type Department Care Team (Late st Contact Info) Description 01/31/2022 Orders Only [facility] [address] [place], [place] [phone] Abiodun Segura II, MD [address] [place] [address] Social History Tobacco Use Types Packs/Day [...] Coronavirus/COVID-19? No / Unsure 01/10/2022 11:[address] SUPERVISOR OF ENGINES documented as [...] AM ROAD SUPERVISOR OF ENGINES Office Visit [facility] [phone] Marvin Mckeon MD [facility] [address] [place] [address] 03/20/2024 11:[address] SUPERVISOR OF ENGINES Office Visit [facility] Family Medicine - [place] 100 [place] [phone] Abiodun Segura II, MD [address] [place] [address] documented as of this encounter Results * (ABNORMAL) C-REACTIVE PROTEIN (02/15/2022 1:[address] SUPERVISOR OF ENGINES) C-REACTIVE PROTEIN 1.84(H) <0.29 mg/dL 02/15/2022 1:[address] SUPERVISOR OF ENGINES [facility] 02/15/2022 1:[address] SUPERVISOR OF ENGINES Abiodun Segura II, MD LABORATORY Final R esult Performing Organization Address City/[facility]/ZIP Co de Phone Number [facility] [address] [place] [address], [place] [phone] * (ABNORMAL) C-REACTIVE PROTEIN (01/31/2022 11:[address] SUPERVISOR OF ENGINES) C-REACTIVE PROTEIN 2.10(H) <0.9 mg/dL 01/31/2022 2:[address] SUPERVISOR OF ENGINES [facility] 01/31/2022 11:[address] SUPERVISOR OF ENGINES us Abiodun Segura II, MD LABORATORY Final R esult Performing Organization Address City/[facility]/ZIP Co de Phone Number [facility] [address] [place] [address], [place] [phone] * CK (CPK) (01/31/2022 11:[address] SUPERVISOR OF ENGINES) CPK 169 26 - 192 U/L 01/31/2022 2:[address] SUPERVISOR OF ENGINES [facility] 01/31/2022 11:[address] SUPERVISOR OF ENGINES us Abiodun Segura II, MD LABORATORY Final R esult [facility] [address] [place] [address], [place] [phone] * (ABNORMAL) CBC W/DIFF AUTOMATED (01/31/2022 11:[address] SUPERVISOR OF ENGINES) [facility] WBC 7.6 4.4 - 11.0 x10'3/uL 01/31/2022 2:28 PM [facility] RBC 3.65(L) 4.50 - 5.10 x10'6/uL 01/31/2022 2:28 PM [facility] HGB 11.0(L) 12.3 - 15.3 G/DL 01/31/2022 2:28 PM [facility] HCT 32.8(L) 35.9 - 44.6 % 01/31/2022 2:28 PM [facility] MCV 89.9 80.0 - 96.0 FL 01/31/2022 2:28 PM [facility] MCH 30.1 25.3 - 30.9 PG 01/31/2022 2:28 PM [facility] MCHC 33.5 31.0 - 34.1 G/DL 01/31/2022 2:28 PM [facility] RDW 13.7 12.4 - 15.1 % 01/31/2022 2:28 PM [facility] PLT 224 151 - 353 x10'3/uL 01/31/2022 2:28 PM [facility] MPV 11.6 9.6 - 12.0 FL 01/31/2022 2:28 PM [facility] RBC MORPHOLOGY NORMAL 01/31/2022 2:28 PM [facility] PLT MORPH. NORMAL 01/31/2022 2:28 PM [facility] WBC MORPHOLOGY NORMAL 01/31/2022 2:28 PM [facility] LYMPHOCYTES % 27.6 15.8 - 45.0 % 01/31/2022 2:28 PM [facility] NEUTROPHILS % 63.7 42.1 - 71.9 % 01/31/2022 2:28 PM [facility] MONOCYTES % 5.4(L) 5.7 - 12.5 % 01/31/2022 2:28 PM [facility] EOSINOPHILS 2.2 0.0 - 5.6 % 01/31/2022 2:28 PM [facility] BASOPHILS 0.8 0.0 - 1.3 % 01/31/2022 2:28 PM [facility] ABS. NEUTROPHILS 4.87 1.40 - 6.00 x10'3/uL 01/31/2022 2:28 PM [facility] IMMATURE GRANS % 0.3 0.0 - 0.5 % 01/31/2022 2:28 PM [facility] ABS. LYMPHOCYTES 2.11 0.80 - 4.70 x10'3/uL 01/31/2022 2:28 PM [facility] 01/31/2022 11:[address] SUPERVISOR OF ENGINES Abiodun Segura II, MD LABORATORY Final R esult [facility] [address] [place] [address], * (ABNORMAL) COMPREHENSIVE METABOLIC PANEL (01/31/2022 11:[address] SUPERVISOR OF ENGINES) GLUCOSE 96 70 - 99 MG/DL 01/31/2022 2:50 PM [facility] BUN 18 7 - 18 MG/DL 01/31/2022 2:50 PM [facility] CREATININE S/P/B 0.81 0.55 - 1.02 MG/DL 01/31/2022 2:50 PM [facility] SODIUM S/P/B 143 136 - 145 MMOL/L 01/31/2022 2:50 PM [facility] POTASSIUM S/P/B 3.1(L) 3.5 - 5.1 MMOL/L 01/31/2022 2:50 PM [facility] CHLORIDE S/P/B 103 100 - 108 MMOL/L 01/31/2022 2:50 PM [facility] CO2 34.3(H) 21 - 32 MMOL/L 01/31/2022 2:50 PM [facility] CALCIUM S/P/B 9.4 8.5 - 10.1 MG/DL 01/31/2022 2:50 PM [facility] BILIRUBIN TOTAL S/P/B 0.6 0.2 - 1.2 MG/DL 01/31/2022 2:50 PM [facility] TOTAL PROTEIN S/P/B 8.3(H) 6.4 - 8.2 G/DL 01/31/2022 2:50 PM [facility] ALBUMIN S/P/B 3.2(L) 3.4 - 5.0 G/DL 01/31/2022 2:50 PM [facility] AST 25 15 - 37 U/L 01/31/2022 2:50 PM [facility] ALT 34 14 - 55 U/L 01/31/2022 2:50 PM [facility] ALKALINE PHOSPHATASE S/P/B 150(H) 50 - 136 U/L 01/31/2022 2:50 PM [facility] ANION GAP 5.7 5 - 15 MMOL/L 01/31/2022 2:[address] SUPERVISOR OF ENGINES [facility] BUN CREATININE RATIO 22.2 6 - 26 01/31/2022 2:[address] SUPERVISOR OF ENGINES [facility] A/G RATIO 0.6(L) 1.0 - 2.0 RATIO 01/31/2022 2:[address] SUPERVISOR OF ENGINES [facility] GFR ESTIMATE 88(L) >90 ML/MIN/1.7 3 M2 01/31/2022 2:[address] SUPERVISOR OF ENGINES [facility] Comment: NOTE: eGFR is not calculated for patients <18 years of age. This is an estimated GFR calculation using the new CKD EPI creatinine equation without race and so does not require a correction factor for race. This estimated GFR should not be used for calculating drug doses. 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 Other specified disorder of skin Face, neck, and scalp except eye, blister, infected Other chronic osteomyelitis of foot, unspecified laterality ([facility]) documented in this encounter Additional Health Concerns Assessment Noted Time PHQ-9 Depression Total Score: 0 03/08/19 9:[address] SUPERVISOR OF ENGINES documented as of this encounter Care Teams Assistant Brand Manager Relationship Specialty Start Date End Date Abiodun Segura II, MD [address] [place] [address] PCP - General FAMILY PRACTICE 03/09/21 documented as of this encounter
--- OUTSIDE RECORDS SUMMARY | 2024-03-03 01:23 | XMS_ITS | Encounter Summary ---
Author Organization [facility] Address [address] [place] [address]. [place], [place] [address] [place] [address] Care Team Providers Care Return Agent Airport Name Role Phone Colton SILVEIRA MD, Abiodun [...] Coronavirus/COVID-19? No / Unsure 02/15/2022 1:18 PM SMOOTH PLATER documented as of this encounter Functional [...] st Contact Info) Description 03/14/2024 11:45 AM SMOOTH PLATER Office Visit [facility] [phone] Marvin Mckeon MD [facility] [address] [place] [phone] 03/20/2024 11:30 AM SMOOTH PLATER Office Visit [facility] Family Medicine - [place] [address] [place] [phone] Abiodun Segura II, MD [address] [place] [phone] documented as of this encounter Visit Diagnoses Not on filedocumented in this encounter Additional Health Concerns Assessment Noted Time PHQ-9 Depression Total Score: 0 03/08/19 9:30 AM SMOOTH PLATER documented as of this encounter Care Teams Return Agent Airport Relationship Specialty Start Date End Date Abiodun Segura II, MD 100 [place] [address] PCP - General FAMILY PRACTICE 03/09/21 documented as of this encounter
--- OUTSIDE RECORDS SUMMARY | 2024-03-03 01:23 | XMS_ITS | Encounter Summary ---
Author Organization [facility] Address [address] [place] [address]. [place] [address] [place] [address] Care Team Providers Care Block Mechanic Name Role Phone Colton SILVEIRA MD, Abiodun Rushing Primary Care Provider Reason for Visit * Reason Onset Date Comments Medication Request 02/14/2022 Encounter Details Date Type Department Care Team (Late st Contact Info) Description 02/14/[address] [facility] Family Medicine - [place] 100 [place] [address] Abiodun Segura II, MD [address] [place] [address] Medication Request Social History Tobacco [...] Coronavirus/COVID-19? No / Unsure 02/15/2022 1:18 PM SIEBEL SOLUTION ARCHITECT documented as of this encounter Functional [...] 3:40 tomorrow afternoon to check her urine EL SOLUTION ARCHITECT * Debra Cruz - 02/14/2022 8:46 AM CST Patient calling in requesting an prescription for an UTI. Patient bleieves she got an UTI from previous medication taken. Patient is requesting a call back. Patient was informed that prescriptions are no longer provided unless seen in office first. [facility] EL SOLUTION ARCHITECT documented in this encounter Plan of Treatment Upcoming Encounters Date Type Department Care Team (Late st Contact Info) Description 03/14/2024 11:45 AM SIEBEL SOLUTION ARCHITECT Office Visit [facility]-[address] [address] Marvin Mckeon MD [address] [facility] [address] [place] [address] 03/20/2024 11:30 AM SIEBEL SOLUTION ARCHITECT Office Visit [facility] Family Medicine - [place] [address] [place] [phone] Abiodun Segura II, MD [address] [place] [address] documented as of this encounter Visit Diagnoses Not on filedocumented in this encounter Additional Health Concerns Assessment Noted Time PHQ-9 Depression Total Score: 0 03/08/19 9:30 AM SIEBEL SOLUTION ARCHITECT documented as of this encounter Care Teams Block Mechanic Relationship Specialty Start Date End Date Abiodun Segura II, MD [address] [place] [address] PCP - General FAMILY PRACTICE 03/09/21 documented as of this encounter
--- OUTSIDE RECORDS SUMMARY | 2024-03-03 01:23 | XMS_ITS | Encounter Summary ---
Author Organization [facility] Address [address] [place] [address]. [place] [address] [place] [address] Care Team Providers Care Mat Maker Name Role Phone Colton SILVEIRA MD, Abiodun Rushing Primary Care Provider Reason for Visit * Reason Onset Date Comments Error 05/02/2022 Encounter Details Date Type Department Care Team (Late st Contact Info) Description 05/02/2022 Telephone [facility] Family Medicine [place] 100 [place] [address] Abiodun Segura II, MD 100 [place] [address] Error Social History Tobacco Use [...] Coronavirus/COVID-19? No / Unsure 04/04/2022 11:24 AM PATROL SERGEANT documented as of this encounter Functional Status [...] Contact Info) Description 03/14/2024 11:45 AM PATROL SERGEANT Office Visit [facility] [phone] Marvin Mckeon MD [facility] [address] [place] [address] 03/20/2024 11:30 AM PATROL SERGEANT Office Visit [facility] Family Medicine - [place] [address] [place] [phone] Abiodun Segura II, MD 100 [place] [address] documented as of this encounter Visit Diagnoses Not on filedocumented in this encounter Additional Health Concerns Assessment Noted Time PHQ-9 Depression Total Score: 0 03/08/19 9:30 AM PATROL SERGEANT documented as of this encounter Care Teams Mat Maker Relationship Specialty Start Date End Date Abiodun Segura II, MD 100 [place] [address] PCP - General FAMILY PRACTICE 03/09/21 documented as of this encounter
--- OUTSIDE RECORDS SUMMARY | 2024-03-03 01:23 | XMS_ITS | Encounter Summary ---
Author Organization [facility] Address [address] [place] [address]. [place] [address] [place] [address] Care Team Providers Care Finisher Cold Rolling Name Role Phone Colton SILVEIRA MD, Yasmin Rushing Primary Care Provider Reason for Visit * Reason Comments Urinary Problem Patient presents wit h complaint of frequent urination and pressure Encounter Details Date Type Department Care Team (Late st Contact Info) Description 02/15/2022 3:40 PM GAS METER REPAIRER Office Visit [facility] Family Medicine - [place] [address] [place] [address] Audie Vides PA-C [address] [place] [address] Urinary Problem (Patient presents with complaint of [...] Coronavirus/COVID-19? No / Unsure 02/15/2022 1:18 PM GAS METER REPAIRER documented as of this encounter Last Filed Vital Signs Vital Sign Reading Time Taken Comments Blood Pressure 145/75 02/15/2022 2:46 PM GAS METER REPAIRER Pulse 91 02/15/2022 2:22 PM GAS METER REPAIRER Temperature 36.4 ??C (97.6 ??F) 02/15/2022 2:22 PM CS T Respiratory Rate - - Oxygen Saturation 100% 02/15/2022 2:22 PM GAS METER REPAIRER Inhaled Oxygen Concentration - - Weight 86.6 kg (191 lb) 02/15/2022 2:22 PM GAS METER REPAIRER Height - - Body Mass Index 30.83 01/08/2022 5:27 PM GAS METER REPAIRER documented in this encounter Functional Status [...] Yes Social History Narrative lives with and [facility]. E-Cigarettes Questions Responses E-Cigarette Use Never User [...] ref. provider found PCP: YASMIN SEGURA MD METER REPAIRER documented in this encounter Plan of Treatment Upcoming Encounters Date Type Department Care Team (Late st Contact Info) Description 03/14/2024 11:45 AM GAS METER REPAIRER Office Visit [facility]-[address] [phone] Marvin Mckeon MD Three [facility] [address] [place] [address] 03/20/2024 11:30 AM GAS METER REPAIRER Office Visit [facility] Family Medicine - [place] [address] [place] [phone] Yasmin Segura II, MD [address] [place] [address] documented as of this encounter Visit Diagnoses Diagnosis Cystitis- Primary Cystitis, unspecified documented in this encounter Additional Health Concerns Assessment Noted Time PHQ-9 Depression Total Score: 0 03/08/19 9:30 AM GAS METER REPAIRER documented as of this encounter Care Teams Finisher Cold Rolling Relationship Specialty Start Date End Date Yasmin Segura II, MD 100 [place] [address] PCP - General FAMILY PRACTICE 03/09/21 documented as of this encounter
--- OUTSIDE RECORDS SUMMARY | 2024-03-03 01:23 | XMS_ITS | Encounter Summary ---
Author Organization [facility] Address [address] [place] [address]. [place], [place] [address] [place] [address] Care Team Providers Care Foreign Exchange Services Manager Name Role Phone Colton SILVEIRA MD, [...] Coronavirus/COVID-19? No / Unsure 01/10/2022 11:53 AM FUNDRAISING SALE REPRESENTATIVE documented as of this encounter Functional [...] st Contact Info) Description 03/14/2024 11:45 AM FUNDRAISING SALE REPRESENTATIVE Office Visit [facility] [address] Marvin Mckeon MD [facility] [address] [place] [address] 03/20/2024 11:30 AM FUNDRAISING SALE REPRESENTATIVE Office Visit [facility] Family Medicine - [address] [phone] Abiodun Segura II, MD [address] [place] [address] documented as of this encounter Visit Diagnoses Not on filedocumented in this encounter Additional Health Concerns Assessment Noted Time PHQ-9 Depression Total Score: 0 03/08/19 22 9:30 AM FUNDRAISING SALE REPRESENTATIVE documented as of this encounter Care Teams Foreign Exchange Services Manager Relationship Specialty Start Date End Date Abiodun Segura II, MD 100 [place] [address] PCP - General FAMILY PRACTICE 03/09/21 documented as of this encounter
--- OUTSIDE RECORDS SUMMARY | 2024-03-03 01:23 | XMS_ITS | Encounter Summary ---
Author Organization [facility] Address [address] [place] [address]. [place], [place] [address] [place] [address] Care Team Providers Care Machine Adjuster Name Role Phone Colton SILVEIRA MD, Abiodun [...] Coronavirus/COVID-19? No / Unsure 03/15/2022 9:40 AM BLANCHING MACHINE OPERATOR documented as of this encounter [...] st Contact Info) Description 03/14/2024 11:45 AM BLANCHING MACHINE OPERATOR Office Visit [facility] [phone] Marvin Mckeon MD Three [facility] [address] [place] [phone] 03/20/2024 11:30 AM BLANCHING MACHINE OPERATOR Office Visit [facility] Family Medicine - [address] [phone] Abiodun Segura II, MD [address] [place] [phone] documented as of this encounter Visit Diagnoses Not on filedocumented in this encounter Additional Health Concerns Assessment Noted Time PHQ-9 Depression Total Score: 0 03/08/19 22 9:30 AM BLANCHING MACHINE OPERATOR documented as of this encounter Care Teams Machine Adjuster Relationship Specialty Start Date End Date Abiodun Segura II, MD [address] [place] [address] PCP - General FAMILY PRACTICE 03/09/21 documented as of this encounter
--- OUTSIDE RECORDS SUMMARY | 2024-03-03 01:23 | XMS_ITS | Encounter Summary ---
Author Organization [facility] Address [address] [place] [address]. [place] [address] [place] [address] Care Team Providers Care Cleaner Operator Name Role Phone Colton SILVEIRA MD, Abiodun Rushing Primary Care Provider Reason for Visit * Reason Onset Date Comments Advice 02/01/2022 Encounter Details Date Type Department Care Team (Late st Contact Info) Description 02/01/2022 Telephone [facility] Family Medicine [place] 100 [place] [address] Abiodun Segura II, MD 100 [place] [address] Advice Social History Tobacco Use [...] Coronavirus/COVID-19? No / Unsure 01/10/2022 11:53 AM HEALTH CLUB ATTENDANT documented as of this encounter Functional [...] to stop antibiotics and remove pik line TH CLUB ATTENDANT * Sydney Cobos MA - 02/01/2022 3:18 PM CST [facility] wants to know if patient can be taken off of IV antibiotics as scheduled/planned for tomorrow [phone] TH CLUB ATTENDANT * Debra Cruz - 02/01/2022 1:17 PM CST Called in wanting to know if the patient is discontinued from IV'a TH CLUB ATTENDANT documented in this encounter Plan of Treatment Upcoming Encounters Date Type Department Care Team (Late st Contact Info) Description 03/14/2024 11:45 AM HEALTH CLUB ATTENDANT Office Visit [facility] [phone] Marvin Mckeon MD Three [facility] [address] [place] [address] 03/20/2024 11:30 AM HEALTH CLUB ATTENDANT Office Visit [facility] Family Medicine - [place] 100 [place] [phone] Abiodun Segura II, MD 100 [place] [address] documented as of this encounter Visit Diagnoses Not on filedocumented in this encounter Additional Health Concerns Assessment Noted Time PHQ-9 Depression Total Score: 0 03/08/19 9:30 AM HEALTH CLUB ATTENDANT documented as of this encounter Care Teams Cleaner Operator Relationship Specialty Start Date End Date Abiodun Segura II, MD [address] [place] [address] PCP - General FAMILY PRACTICE 03/09/21 documented as of this encounter
--- OUTSIDE RECORDS SUMMARY | 2024-03-03 01:23 | XMS_ITS | Encounter Summary ---
Author Organization [facility] Address [address] [place] [address]. [place], [place] [address] [place] [address] Care Team Providers Care Alignment Mechanic Name Role Phone Colton SILVEIRA MD, [...] Coronavirus/COVID-19? No / Unsure 01/10/2022 11:53 AM HEEL SEWER documented as of this encounter Functional Status [...] Contact Info) Description 03/14/2024 11:45 AM HEEL SEWER Office Visit [facility] [phone] Marvin Mckeon MD Three [facility] [address] [place] [address] 03/20/2024 11:30 AM HEEL SEWER Office Visit [facility] Family Medicine - [place] 100 [place] [phone] Abiodun Segura II, MD 100 [place] [address] documented as of this encounter Procedures Procedure [...] Depression Total Score: 0 03/08/19 9:30 AM HEEL SEWER documented as of this encounter Care Teams Alignment Mechanic Relationship Specialty Start Date End Date Abiodun Segura II, MD [address] [place] [phone] PCP - General FAMILY PRACTICE 03/09/21 documented as of this encounter
--- OUTSIDE RECORDS SUMMARY | 2024-03-03 01:23 | XMS_ITS | Encounter Summary ---
Author Organization [facility] Address [address] [place] [address]. [place], [place] [address] [place] [address] Care Team Providers Care Erp Programmer Name Role Phone Colton SILVEIRA MD, [...] Coronavirus/COVID-19? No / Unsure 01/10/2022 11:53 AM WATCH DIAL STONER documented as of this encounter Functional Status [...] st Contact Info) Description 03/14/2024 11:45 AM WATCH DIAL STONER Office Visit [facility] [phone] Marvin Mckeon MD Three [facility] [address] [place] [address] 03/20/2024 11:30 AM WATCH DIAL STONER Office Visit [facility] Family Medicine - [place] 100 [place] [phone] Abiodun Segura II, MD 100 [place] [address] documented as of this encounter Procedures Procedure [...] Depression Total Score: 0 03/08/19 9:30 AM WATCH DIAL STONER documented as of this encounter Care Teams Erp Programmer Relationship Specialty Start Date End Date Abiodun Segura II, MD [address] [place] [address] PCP - General FAMILY PRACTICE 03/09/21 documented as of this encounter
--- OUTSIDE RECORDS SUMMARY | 2024-03-03 01:23 | XMS_ITS | Encounter Summary ---
Author Organization [facility] Address [address] [place] [address]. [place] [address] [place] [address] Care Team Providers Care Denture Laboratory Technician Name Role Phone Colton SILVEIRA MD, Abiodun Rushing Primary Care Provider Encounter Details Date Type Department Care Team (Late st Contact Info) Description 04/21/2022 Orders Only [facility] Family Medicine - [place] 100 [place] [address] Abiodun Segura II, MD 100 [place] [address] Social History Tobacco Use Types [...] Coronavirus/COVID-19? No / Unsure 04/04/2022 11:24 AM COMMUNICATION COORDINATOR documented as of this encounter Functional [...] st Contact Info) Description 03/14/2024 11:45 AM COMMUNICATION COORDINATOR Office Visit [facility] [phone] Marvin Mcekon MD [facility] [address] [place] [address] 03/20/2024 11:30 AM COMMUNICATION COORDINATOR Office Visit [facility] Family Medicine - [place] 100 [place] [phone] Abiodun Segura II, MD [address] [place] [address] documented as of this encounter Visit Diagnoses Diagnosis Type 2 diabetes mellitus with diabetic neuropathic arthropathy, with long-term current use of insulin ([facility])- Primary documented in this encounter Additional Health Concerns Assessment Noted Time PHQ-9 Depression Total Score: 0 03/08/19 9:30 AM COMMUNICATION COORDINATOR documented as of this encounter Care Teams Denture Laboratory Technician Relationship Specialty Start Date End Date Abiodun Segura II, MD 100 [place] [address] PCP - General FAMILY PRACTICE 03/09/21 documented as of this encounter
--- OUTSIDE RECORDS SUMMARY | 2024-03-03 01:23 | XMS_ITS | Encounter Summary ---
Author Organization [facility] Address [address] [place] [address]. [place] [address] [place] [address] Care Team Providers Care Phone Specialist Name Role Phone Colton SILVEIRA MD, Abiodun Rushing Primary Care Provider Victoriano Langston MD Unavailable [phone] Encounter Details Date Type Department Care Team (Late st Contact Info) Description 06/26/2022 Orders Only [facility] Family Medicine - [place] 100 [place] [address] Abiodun Segura II, MD 100 [place] [address] Social History Tobacco Use Types [...] Contact Info) Description 03/14/2024 11:45 AM PRODUCTION SUPPORT ENGINEER Office Visit [facility] [phone] Marvin Mckeon MD [facility] [address] [place] [address] 03/20/2024 11:30 AM PRODUCTION SUPPORT ENGINEER Office Visit [facility] Family Medicine - [place] [phone] Abiodun Segura II, MD [address] [place] [address] documented as of this encounter Results * (ABNORMAL) LIPID PANEL (06/26/2022 11:46 AM CDT) [facility] Signature CHOLESTEROL 184 <200 MG/DL 06/26/2022 12:20 PM CDT [facility] TRIGLYCERIDES 238(H) <150 MG/DL 06/26/2022 12:20 PM CDT [facility] HDL 44 >40.0 MG/DL 06/26/2022 12:20 PM T [facility] LDL (CALCULATED) 92 <100 MG/DL 06/26/2022 12:20 PM T [facility] NON HDL CHOLESTEROL 140(H) <130 MG/DL 06/26/2022 12:20 PM T [facility] CHOL/HDL RATIO 4.2 0.0 - 4.5 06/26/2022 12:20 PM T [facility] VLDL CALCULATION 48 5 - 55 MG/DL 06/26/2022 12:20 PM T [facility] LIPID INTERPRETATION 06/26/2022 12:20 PM T [facility] Comment: NIH CONCENSUS REPORT RECOMMENDATIONS: [...] LABORATORY Final R esult Performing Organization Address City/State/[facility] Co de Phone Number [facility] [address] [place] [address], * (ABNORMAL) COMPREHENSIVE METABOLIC PANEL (06/26/2022 11:46 AM CDT) GLUCOSE 152(H) 70 - 99 MG/DL 06/26/2022 12:20 PM CDT [facility] BUN 16 7 - 18 MG/DL 06/26/2022 12:20 PM CDT [facility] CREATININE S/P/B 0.97 0.55 - 1.02 MG/DL 06/26/2022 12:20 PM CDT [facility] SODIUM S/P/B 136 136 - 145 MMOL/L 06/26/2022 12:20 PM CDT [facility] POTASSIUM S/P/B 4.0 3.5 - 5.1 MMOL/L 06/26/2022 12:20 PM CDT [facility] CHLORIDE S/P/B 105 100 - 108 MMOL/L 06/26/2022 12:20 PM CDT [facility] CO2 29.2 21 - 32 MMOL/L 06/26/2022 12:20 PM CDT [facility] CALCIUM S/P/B 9.4 8.5 - 10.1 MG/DL 06/26/2022 12:20 PM CDT [facility] BILIRUBIN TOTAL S/P/B 0.4 0.2 - 1.2 MG/DL 06/26/2022 12:20 PM CDT [facility] Comment: THIS ASSAY IS NOT RECOMMENDED FOR PATIENTS UNDERGOING TREATMENT WITH ELTROMBOPAG DUE TO THE POTENTIAL FOR FALSELY ELEVATED RESULTS. TOTAL PROTEIN S/P/B 8.6(H) 6.4 - 8.2 G/DL 06/26/2022 12:20 PM CDT [facility] ALBUMIN S/P/B 3.4 3.4 - 5.0 G/DL 06/26/2022 12:20 PM CDT [facility] AST 30 15 - 37 U/L 06/26/2022 12:20 PM CDT [facility] ALT 39 14 - 55 U/L 06/26/2022 12:20 PM CDT [facility] ALKALINE PHOSPHATASE S/P/B 135 50 - 136 U/L 06/26/2022 12:20 PM CDT [facility] ANION GAP 1.8(L) 5 - 15 MMOL/L 06/26/2022 12:20 PM CDT [facility] BUN CREATININE RATIO 16.6 6 - 26 06/26/2022 12:20 PM CDT [facility] A/G RATIO 0.7(L) 1.0 - 2.0 RATIO 06/26/2022 12:20 PM CDT [facility] GFR ESTIMATE 71(L) >90 ML/MIN/1.7 3 M2 06/26/2022 12:20 PM CDT [facility] Comment: [...] Segura II, MD LABORATORY Final R esult [facility] [address] [place] [address], [place] [phone] * (ABNORMAL) CBC W/DIFF AUTOMATED (06/26/2022 11:46 AM CDT) WBC 8.1 4.5 - 11.0 x10'3/uL 06/26/2022 11:56 AM CDT [facility] RBC 3.98(L) 4.20 - 5.40 x10'6/uL 06/26/2022 11:56 AM CDT [facility] HGB 11.9(L) 12.0 - 16.0 G/DL 06/26/2022 11:56 AM CDT [facility] HCT 36.0(L) 38.0 - 48.0 % 06/26/2022 11:56 AM CDT [facility] MCV 90.5 81.0 - 99.0 FL 06/26/2022 11:56 AM CDT [facility] MCH 29.9 27.0 - 31.0 PG 06/26/2022 11:56 AM CDT [facility] MCHC 33.1 32.0 - 36.0 G/DL 06/26/2022 11:56 AM CDT [facility] RDW 13.3 11.5 - 14.5 % 06/26/2022 11:56 AM CDT [facility] PLT 272 130 - 400 x10'3/uL 06/26/2022 11:56 AM CDT [facility] MPV 10.8 9.3 - 12.2 FL 06/26/2022 11:56 AM T [facility] DIFFERENTIAL TYPE AUTOMATED DIFFERENTIAL 06/26/2022 11:56 AM CDT [facility] NEUTROPHILS % 57.3 % 06/26/2022 11:56 AM CDT [facility] LYMPHOCYTES % 36.4 % 06/26/2022 11:56 AM CDT [facility] MONOCYTES % 4.3 % 06/26/2022 11:56 AM T [facility] EOSINOPHILS 1.1 % 06/26/2022 11:56 AM CDT [facility] BASOPHILS 0.5 % 06/26/2022 11:56 AM CDT [facility] IMMATURE GRANS % 0.4 % 06/27/19 11:56 AM CDT [facility] ABS. NEUTROPHILS TOTAL 4.61 1.80 - 7.70 x10'3/uL 06/26/2022 11:56 AM T [facility] ABS. LYMPHOCYTES 2.93 1.00 - 4.80 x10'3/uL 06/26/2022 11:56 AM CDT [facility] ABS. MONOCYTES 0.35 0.24 - 0.86 x10'3/uL 06/26/2022 11:56 AM CDT [facility] ABS. EOSINOPHILS 0.09 0.04 - 0.36 x10'3/uL 06/26/2022 11:56 AM CDT [facility] ABS. BASOPHILS 0.04 0.01 - 0.08 x10'3/uL 06/26/2022 11:56 AM CDT [facility] ABS. IMMATURE GRANULOCYTES 0.03 0.00 - 0.49 x10'3/uL 06/26/2022 11:56 AM CDT [facility] 06/26/2022 11:4 6 AM CDT Abiodun Segura II, MD LABORATORY Final R esult [facility] [address] [place] [address], [place] [phone] * (ABNORMAL) HEMOGLOBIN, GLYCOSYLATED (06/26/2022 11:46 AM CDT) HGB A1C 8.3(H) <5.7 % 06/26/2022 12:58 PM CDT [facility] Comment: ADA GUIDELINES 2010 5.7 TO 6.4% INCREASED RISK OF DIABETES > OR = 6.5% CONSISTENT WITH DIABETES ESTIMATED AVG GLUCOSE 192 mg/dL 06/26/2022 12:58 PM CDT [facility] 06/26/2022 11:4 6 AM CDT Abiodun Segura II, MD LABORATORY Final R esult [facility] [address] [facility] [place] [address], documented in this encounter Visit Diagnoses Diagnosis Hypercholesteremia- Primary Pure hypercholesterolemia Primary hypertension Unspecified essential hypertension Type 2 diabetes mellitus with retinopathy, with long-term current use of insulin, macular edema presence unspecified, unspecified laterality, unspecified retinopathy severity (CMS/HCC HHS/HCC) documented in this encounter Additional Health Concerns Assessment Noted Time PHQ-9 Depression Total Score: 0 03/08/19 22 9:30 AM PRODUCTION SUPPORT ENGINEER documented as of this encounter Care Teams Phone Specialist Relationship Specialty Start Date End Date Abiodun Segura II, MD 100 [place] [address] PCP - General FAMILY PRACTICE 03/09/21 [place] [address] [place] [address] PODIATRY/SURGERY 05/05/22 documented as of this encounter
--- OUTSIDE RECORDS SUMMARY | 2024-03-03 01:23 | XMS_ITS | Encounter Summary ---
Author Organization [facility] Address [address] [place] [address]. [place] [address] [place] [address] Care Team Providers Care Paper Colorer Name Role Phone Colton SILVEIRA MD, Abiodun Rushing Primary Care Provider Reason for Visit * Reason Onset Date Comments Quality Gap Closure 04/03/2022 Encounter Details Date Type Department Care Team (Latest Contact Info) Description 04/03/2022 Patient Outreach [facility] Family Medicine - [place] 100 [place] [address] Merced Wise MA Quality Gap [...] Coronavirus/COVID-19? No / Unsure 03/15/2022 9:40 AM PLASTICS BENCH MECHANIC documented as of this encounter Functional [...] to contact me directly- my number is [phone]. Preventive Screenings: Breast Cancer Screening: Up to [...] Declined Shingles: Needs Follow Up Notes: [facility] TICS BENCH MECHANIC documented in this encounter Plan of Treatment Upcoming Encounters Date Type Department Care Team (Late st Contact Info) Description 03/14/2024 11:45 AM PLASTICS BENCH MECHANIC Office Visit [facility] [phone] Marvin Mckeon MD [address] [facility] [address] [place] [address] 03/20/2024 11:30 AM PLASTICS BENCH MECHANIC Office Visit [facility] Family Medicine - [place] 100 [place] [phone] Abiodun Segura II, MD 100 [place] [address] documented as of this encounter Visit Diagnoses Not on filedocumented in this encounter Additional Health Concerns Assessment Noted Time PHQ-9 Depression Total Score: 0 03/08/19 9:30 AM PLASTICS BENCH MECHANIC documented as of this encounter Care Teams Paper Colorer Relationship Specialty Start Date End Date Abiodun Segura II, MD [address] [place] [address] PCP - General FAMILY PRACTICE 03/09/21 documented as of this encounter
--- OUTSIDE RECORDS SUMMARY | 2024-03-03 01:23 | XMS_ITS | Encounter Summary ---
Author Organization [facility] Address [address] [place] [address]. [place] [address] [place] [address] Care Team Providers Care Block Sawyer Name Role Phone Colton SILVEIRA MD, Abiodun Rushing Primary Care Provider Encounter Details Date Type Department Care Team (Late st Contact Info) Description 01/31/2022 2:19 PM CONFIGURATION SPECIALIST - 01/31/2022 11:59 PM [facility] Hospital Encounter [facility] [address] [place] [employer], [place] [phone] Abiodun Segura II, MD [address] [place] [address] Discharge Disposition: Home or Self Care [...] Coronavirus/COVID-19? No / Unsure 01/10/2022 11:53 AM CONFIGURATION SPECIALIST documented as of this encounter Functional [...] early re-imaging if elevated at that time. IGURATION SPECIALIST documented in this encounter Plan of Treatment Upcoming Encounters Date Type Department Care Team (Late st Contact Info) Description 03/14/2024 11:45 AM CONFIGURATION SPECIALIST Office Visit [facility] [phone] Marvin Mckeon MD [facility] [address] [place] [address] 03/20/2024 11:30 AM CONFIGURATION SPECIALIST Office Visit [facility] Family Medicine - [place] 100 [place] [phone] Abiodun Segura II, MD 100 [place] [address] documented as of this encounter Procedures Procedure Name Priority Date/Time Associated Diagnosis Comments COMPREHENSIVE METABOLIC PANEL Routine 01/31/2022 11:30 AM CONFIGURATION SPECIALIST Bullosis diabeticorum (CMS/HCC HHS/HCC) Face, neck, and scalp except eye, blister, infected C-REACTIVE PROTEIN Routine 01/31/2022 11 :30 AM CONFIGURATION SPECIALIST Bullosis diabeticorum (CMS/HCC HHS/HCC) Face, neck, and scalp except eye, blister, infected CBC W/DIFF AUTOMATED Routine 01/31/2022 11:30 AM CONFIGURATION SPECIALIST Bullosis diabeticorum (CMS/HCC HHS/HCC) Face, neck, and scalp except eye, blister, infected CK (CPK) Routine 01/31/2022 11:30 AM CONFIGURATION SPECIALIST Bullosis diabeticorum (CMS/HCC HHS/HCC) Face, neck, and scalp except eye, blister, infected documented in this encounter Results * (ABNORMAL) COMPREHENSIVE METABOLIC PANEL (01/31/2022 11:30 AM CONFIGURATION SPECIALIST) GLUCOSE 96 70 - 99 MG/DL 01/31/2022 2:50 PM [facility] BUN 18 7 - 18 MG/DL 01/31/2022 2:50 PM [facility] CREATININE S/P/B 0.81 0.55 - 1.02 MG/DL 01/31/2022 2:50 PM [facility] SODIUM S/P/B 143 136 - 145 MMOL/L 01/31/2022 2:50 PM [facility] POTASSIUM S/P/B 3.1(L) 3.5 - 5.1 MMOL/L 01/31/2022 2:50 PM [facility] CHLORIDE S/P/B 103 100 - 108 MMOL/L 01/31/2022 2:50 PM [facility] CO2 34.3(H) 21 - 32 MMOL/L 01/31/2022 2:50 PM [facility] CALCIUM S/P/B 9.4 8.5 - 10.1 MG/DL 01/31/2022 2:50 PM [facility] BILIRUBIN TOTAL S/P/B 0.6 0.2 - 1.2 MG/DL 01/31/2022 2:50 PM [facility] TOTAL PROTEIN S/P/B 8.3(H) 6.4 - 8.2 G/DL 01/31/2022 2:50 PM [facility] ALBUMIN S/P/B 3.2(L) 3.4 - 5.0 G/DL 01/31/2022 2:50 PM [facility] AST 25 15 - 37 U/L 01/31/2022 2:50 PM [facility] ALT 34 14 - 55 U/L 01/31/2022 2:50 PM [facility] ALKALINE PHOSPHATASE S/P/B 150(H) 50 - 136 U/L 01/31/2022 2:50 PM [facility] ANION GAP 5.7 5 - 15 MMOL/L 01/31/2022 2:50 PM [facility] BUN CREATININE RATIO 22.2 6 - 26 01/31/2022 2:50 PM [facility] A/G RATIO 0.6(L) 1.0 - 2.0 RATIO 01/31/2022 2:50 PM [facility] GFR ESTIMATE 88(L) >90 ML/MIN/1.7 3 M2 01/31/2022 2:50 PM [facility] Comment: NOTE: eGFR is not calculated for patients <18 years of age. This is an estimated GFR calculation using the new CKD EPI creatinine equation without race and so does not require a correction factor for race. This estimated GFR should not be used for calculating drug doses. 01/31/2022 11:3 0 AM CONFIGURATION SPECIALIST Abiodun Segura II, MD LABORATORY Final R esult [facility] [address] [place] [address], [place] [phone] * (ABNORMAL) CBC W/DIFF AUTOMATED (01/31/2022 11:30 AM CONFIGURATION SPECIALIST) WBC 7.6 4.4 - 11.0 x10'3/uL 01/31/2022 2:28 PM [facility] RBC 3.65(L) 4.50 - 5.10 x10'6/uL 01/31/2022 2:28 PM [facility] HGB 11.0(L) 12.3 - 15.3 G/DL 01/31/2022 2:28 PM [facility] HCT 32.8(L) 35.9 - 44.6 % 01/31/2022 2:28 PM [facility] MCV 89.9 80.0 - 96.0 FL 01/31/2022 2:28 PM [facility] MCH 30.1 25.3 - 30.9 PG 01/31/2022 2:28 PM [facility] MCHC 33.5 31.0 - 34.1 G/DL 01/31/2022 2:28 PM [facility] RDW 13.7 12.4 - 15.1 % 01/31/2022 2:28 PM [facility] PLT 224 151 - 353 x10'3/uL 01/31/2022 2:28 PM [facility] MPV 11.6 9.6 - 12.0 FL 01/31/2022 2:28 PM [facility] RBC MORPHOLOGY NORMAL 01/31/2022 2:28 PM [facility] PLT MORPH. NORMAL 01/31/2022 2:28 PM [facility] WBC MORPHOLOGY NORMAL 01/31/2022 2:28 PM [facility] LYMPHOCYTES % 27.6 15.8 - 45.0 % 01/31/2022 2:28 PM [facility] NEUTROPHILS % 63.7 42.1 - 71.9 % 01/31/2022 2:28 PM [facility] MONOCYTES % 5.4(L) 5.7 - 12.5 % 01/31/2022 2:28 PM [facility] EOSINOPHILS 2.2 0.0 - 5.6 % 01/31/2022 2:28 PM [facility] BASOPHILS 0.8 0.0 - 1.3 % 01/31/2022 2:28 PM [facility] ABS. NEUTROPHILS 4.87 1.40 - 6.00 x10'3/uL 01/31/2022 2:28 PM [facility] IMMATURE GRANS % 0.3 0.0 - 0.5 % 01/31/2022 2:28 PM [facility] ABS. LYMPHOCYTES 2.11 0.80 - 4.70 x10'3/uL 01/31/2022 2:28 PM [facility] 01/31/2022 11:3 0 AM CONFIGURATION SPECIALIST us Abiodun Segura II, MD LABORATORY Final R esult Performing Organization Address [facility] Co de Phone Number [facility] [address] [place] [address], [place] [phone] * CK (CPK) (01/31/2022 11:30 AM CONFIGURATION SPECIALIST) CPK 169 26 - 192 U/L 01/31/2022 2:50 PM CONFIGURATION SPECIALIST [facility] 01/31/2022 11:3 0 AM CONFIGURATION SPECIALIST Abiodun Segura II, MD LABORATORY Final R esult Performing Organization Address [facility] Co de Phone Number [facility] [address] [place] [address], [place] [phone] * (ABNORMAL) C-REACTIVE PROTEIN (01/31/2022 11:30 AM CONFIGURATION SPECIALIST) C-REACTIVE PROTEIN 2.10(H) <0.9 mg/dL 01/31/2022 2:50 PM CONFIGURATION SPECIALIST [facility] 01/31/2022 11:3 0 AM CONFIGURATION SPECIALIST Abiodun Segura II, MD LABORATORY Final R esult Performing Organization Address City/[facility] Co de Phone Number [facility] [address] [place] [address], [place] [phone] documented in this encounter 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
--- OUTSIDE RECORDS SUMMARY | 2024-03-03 01:23 | XMS_ITS | Encounter Summary ---
Author Organization [facility] Address [address] [place] [address]. [place] [address] [place] [address] Care Team Providers Care Forestry Aide Name Role Phone Colton SILVEIRA MD, Abiodun Rushing Primary Care Provider Encounter Details Date Type Department Care Team (Late st Contact Info) Description 01/17/2022 Orders Only [facility] [address] [place], [place] [phone] Abiodun Segura II, MD [address] [place] [phone] Social History Tobacco Use Types Packs/Day [...] Coronavirus/COVID-19? No / Unsure 01/10/2022 11:53 AM INVESTIGATOR OPERATOR documented as of this encounter Functional [...] st Contact Info) Description 03/14/2024 11:45 AM INVESTIGATOR OPERATOR Office Visit [facility] [phone] Marvin Mckeon MD [facility] [address] [place] [address] 03/20/2024 11:30 AM INVESTIGATOR OPERATOR Office Visit [facility] Medical Group Family Medicine - [place] [address] [place] [phone] Abiodun Segura II, MD [address] [place] [address] documented as of this encounter Results * CK (CPK) (01/17/2022 12:15 PM INVESTIGATOR OPERATOR) CPK 88 26 - 192 U/L 01/17/2022 3:39 PM INVESTIGATOR OPERATOR [facility] 01/17/2022 12:1 5 PM INVESTIGATOR OPERATOR Abiodun Segura II, MD LABORATORY Final R [facility] Performing Organization Address [facility]/ZIP Co de Phone Number [facility] [address] [place] [address], [place] [phone] * C-REACTIVE PROTEIN (01/17/2022 12:15 PM INVESTIGATOR OPERATOR) C-REACTIVE PROTEIN 0.40 <0.9 mg/dL 01/17/2022 3:39 PM INVESTIGATOR OPERATOR [facility] 01/17/2022 12:1 5 PM INVESTIGATOR OPERATOR Abiodun Segura II, MD LABORATORY Final R [facility] Performing Organization Address City/[facility]/ZIP Co de Phone Number [facility] [address] [place] [address], [place] [phone] * (ABNORMAL) COMPREHENSIVE METABOLIC PANEL (01/17/2022 12:15 PM INVESTIGATOR OPERATOR) GLUCOSE 145(H) 70 - 99 MG/DL 01/17/2022 3:39 PM INVESTIGATOR OPERATOR [facility] BUN 21(H) 7 - 18 MG/DL 01/17/2022 3:39 PM INVESTIGATOR OPERATOR [facility] CREATININE S/P/B 0.84 0.55 - 1.02 MG/DL 01/17/2022 3:39 PM INVESTIGATOR OPERATOR [facility] SODIUM S/P/B 142 136 - 145 MMOL/L 01/17/2022 3:39 PM [facility] POTASSIUM S/P/B 3.4(L) 3.5 - 5.1 MMOL/L 01/17/2022 3:39 PM [facility] CHLORIDE S/P/B 105 100 - 108 MMOL/L 01/17/2022 3:39 PM [facility] CO2 24.7 21 - 32 MMOL/L 01/17/2022 3:39 PM [facility] CALCIUM S/P/B 8.8 8.5 - 10.1 MG/DL 01/17/2022 3:39 PM [facility] BILIRUBIN TOTAL S/P/B 0.4 0.2 - 1.2 MG/DL 01/17/2022 3:39 PM [facility] TOTAL PROTEIN S/P/B 8.2 6.4 - 8.2 G/DL 01/17/2022 3:39 PM [facility] ALBUMIN S/P/B 3.1(L) 3.4 - 5.0 G/DL 01/17/2022 3:39 PM [facility] AST 24 15 - 37 U/L 01/17/2022 3:39 PM [facility] ALT 11(L) 14 - 55 U/L 01/17/2022 3:39 PM [facility] ALKALINE PHOSPHATASE S/P/B 150(H) 50 - 136 U/L 01/17/2022 3:39 PM [facility] ANION GAP 12.3 5 - 15 MMOL/L 01/17/2022 3:39 PM [facility] BUN CREATININE RATIO 25.0 6 - 26 01/17/2022 3:39 PM [facility] A/G RATIO 0.6(L) 1.0 - 2.0 RATIO 01/17/2022 3:39 PM [facility] GFR ESTIMATE 85(L) >90 ML/MIN/1.7 3 M2 01/17/2022 3:39 PM [facility] Comment: NOTE: eGFR is not calculated for patients <18 years of age. This is an estimated GFR calculation using the new CKD EPI creatinine equation without race and so does not require a correction factor for race. This estimated GFR should not be used for calculating drug doses. 01/17/2022 12:1 5 PM INVESTIGATOR OPERATOR Abiodun Segura II, MD LABORATORY Final R esult [facility] [address] [place] [address], [place] [phone] * (ABNORMAL) CBC W/DIFF AUTOMATED (01/17/2022 12:15 PM INVESTIGATOR OPERATOR) WBC 8.5 4.4 - 11.0 x10'3/uL 01/17/2022 3:25 PM [facility] RBC 3.60(L) 4.50 - 5.10 x10'6/uL 01/17/2022 3:25 PM [facility] HGB 10.9(L) 12.3 - 15.3 G/DL 01/17/2022 3:25 PM [facility] HCT 31.6(L) 35.9 - 44.6 % 01/17/2022 3:25 PM [facility] MCV 87.8 80.0 - 96.0 FL 01/17/2022 3:25 PM [facility] MCH 30.3 25.3 - 30.9 PG 01/17/2022 3:25 PM [facility] MCHC 34.5(H) 31.0 - 34.1 G/DL 01/17/2022 3:25 PM [facility] RDW 13.4 12.4 - 15.1 % 01/17/2022 3:25 PM [facility] PLT 253 151 - 353 x10'3/uL 01/17/2022 3:25 PM [facility] MPV 11.4 9.6 - 12.0 FL 01/17/2022 3:25 PM [facility] RBC MORPHOLOGY NORMAL 01/17/2022 3:25 PM [facility] PLT MORPH. NORMAL 01/17/2022 3:25 PM [facility] WBC MORPHOLOGY NORMAL 01/17/2022 3:25 PM [facility] LYMPHOCYTES % 31.9 15.8 - 45.0 % 01/17/2022 3:25 PM [facility] NEUTROPHILS % 58.6 42.1 - 71.9 % 01/17/2022 3:25 PM [facility] MONOCYTES % 5.5(L) 5.7 - 12.5 % 01/17/2022 3:25 PM [facility] EOSINOPHILS 3.1 0.0 - 5.6 % 01/17/2022 3:25 PM [facility] BASOPHILS 0.5 0.0 - 1.3 % 01/17/2022 3:25 PM [facility] ABS. NEUTROPHILS 5.00 1.40 - 6.00 x10'3/uL 01/17/2022 3:25 PM [facility] IMMATURE GRANS % 0.4 0.0 - 0.5 % 01/17/2022 3:25 PM [facility] ABS. 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
--- OUTSIDE RECORDS SUMMARY | 2024-03-03 01:23 | XMS_ITS | Encounter Summary ---
Author Organization [facility] Address [address] [place] [address]. [place], [place] [address] [place] [address] Care Team Providers Care Doors Prefitter Name Role Phone Colton SILVEIRA MD, Abiodun [...] Coronavirus/COVID-19? No / Unsure 04/04/2022 11:24 AM STOCK ASSOCIATE documented as of this encounter Functional Status [...] Contact Info) Description 03/14/2024 11:45 AM STOCK ASSOCIATE Office Visit [facility] [phone] Marvin Mckeon MD Three [facility] [address] [place] [phone] 03/20/2024 11:30 AM STOCK ASSOCIATE Office Visit [facility] Family Medicine - [address] [phone] Abiodun Segura II, MD [address] [place] [phone] documented as of this encounter Visit Diagnoses Not on filedocumented in this encounter Additional Health Concerns Assessment Noted Time PHQ-9 Depression Total Score: 0 03/08/19 22 9:30 AM STOCK ASSOCIATE documented as of this encounter Care Teams Doors Prefitter Relationship Specialty Start Date End Date Abiodun Segura II, MD [address] [place] [address] PCP - General FAMILY PRACTICE 03/09/21 documented as of this encounter
--- OUTSIDE RECORDS SUMMARY | 2024-03-03 01:23 | XMS_ITS | Encounter Summary ---
Author Organization [facility] Address [address] [place] [address]. [place] [address] [place] [address] Care Team Providers Care Electrical Logging Engineer Name Role Phone Colton SILVEIRA MD, Abiodun Rushing Primary Care Provider Encounter Details Date Type Department Care Team (Late st Contact Info) Description 01/24/2022 3:14 PM STAFF WEAPONS OFFICER - 01/24/2022 11:59 PM [facility] Hospital Encounter [facility] [address] [place], [place] [phone] Abiodun Segura II, MD [address] [place] [address] Discharge Disposition: Home or Self Care [...] Coronavirus/COVID-19? No / Unsure 01/10/2022 11:53 AM STAFF WEAPONS OFFICER documented as of this encounter Functional [...] st Contact Info) Description 03/14/2024 11:45 AM STAFF WEAPONS OFFICER Office Visit [facility] [phone] Marvin Mckeon MD Three [facility] Suite [facility] [place], [place] [phone] 03/20/2024 11:30 AM STAFF WEAPONS OFFICER Office Visit [facility] Medical Group Family Medicine - [place] [address] [place] [phone] Abiodun Segura II, MD [address] [place], [place] [phone] documented as of this encounter Procedures Procedure Name Priority Date/Time Associated Diagnosis Comments COMPREHENSIVE METABOLIC PANEL Routine 01/24/2022 12:30 PM STAFF WEAPONS OFFICER Bullosis diabeticorum (CMS/HCC HHS/HCC) Face, neck, and scalp except eye, blister, infected C-REACTIVE PROTEIN Routine 01/24/2022 12 :30 PM STAFF WEAPONS OFFICER Bullosis diabeticorum (CMS/HCC HHS/HCC) Face, neck, and scalp except eye, blister, infected CBC W/DIFF AUTOMATED Routine 01/24/2022 12:30 PM STAFF WEAPONS OFFICER Bullosis diabeticorum (CMS/HCC HHS/HCC) Face, neck, and scalp except eye, blister, infected CK (CPK) Routine 01/24/2022 12:30 PM STAFF WEAPONS OFFICER Bullosis diabeticorum (CMS/[facility] HHS/HCC) Face, neck, and scalp except eye, blister, infected documented in this encounter Results * (ABNORMAL) COMPREHENSIVE METABOLIC PANEL (01/24/2022 12:30 PM STAFF WEAPONS OFFICER) Pathologist [facility] GLUCOSE 264(H) 70 - 99 MG/DL 01/24/2022 3:59 PM [facility] BUN 17 7 - 18 MG/DL 01/24/2022 3:59 PM [facility] CREATININE S/P/B 0.96 0.55 - 1.02 MG/DL 01/24/2022 3:59 PM [facility] SODIUM S/P/B 141 136 - 145 MMOL/L 01/24/2022 3:59 PM [facility] POTASSIUM S/P/B 3.4(L) 3.5 - 5.1 MMOL/L 01/24/2022 3:59 PM [facility] CHLORIDE S/P/B 103 100 - 108 MMOL/L 01/24/2022 3:59 PM [facility] CO2 24.4 21 - 32 MMOL/L 01/24/2022 3:59 PM [facility] CALCIUM S/P/B 8.3(L) 8.5 - 10.1 MG/DL 01/24/2022 3:59 PM [facility] BILIRUBIN TOTAL S/P/B 0.4 0.2 - 1.2 MG/DL 01/24/2022 3:59 PM [facility] TOTAL PROTEIN S/P/B 7.9 6.4 - 8.2 G/DL 01/24/2022 3:59 PM [facility] ALBUMIN S/P/B 3.0(L) 3.4 - 5.0 G/DL 01/24/2022 3:59 PM [facility] AST 29 15 - 37 U/L 01/24/2022 3:59 PM [facility] ALT 37 14 - 55 U/L 01/24/2022 3:59 PM [facility] ALKALINE PHOSPHATASE S/P/B 149(H) 50 - 136 U/L 01/24/2022 3:59 PM [facility] ANION GAP 13.6 5 - 15 MMOL/L 01/24/2022 3:59 PM [facility] BUN CREATININE RATIO 17.7 6 - 26 01/24/2022 3:59 PM [facility] A/G RATIO 0.6(L) 1.0 - 2.0 RATIO 01/24/2022 3:59 PM [facility] GFR ESTIMATE 72(L) >90 ML/MIN/1.7 3 M2 01/24/2022 3:59 PM [facility] Comment: NOTE: eGFR is not calculated for patients <18 years of age. This is an estimated GFR calculation using the new CKD EPI creatinine equation without race and so does not require a correction factor for race. This estimated GFR should not be used for calculating drug doses. 01/24/2022 12:3 0 PM STAFF WEAPONS OFFICER us Abiodun Segura II, MD LABORATORY Final R esult [facility] [address] [place] [address], * (ABNORMAL) CBC W/DIFF AUTOMATED (01/24/2022 12:30 PM STAFF WEAPONS OFFICER) WBC 8.1 4.4 - 11.0 x10'3/uL 01/24/2022 3:32 PM STAFF WEAPONS OFFICER [facility] RBC 3.50(L) 4.50 - 5.10 x10'6/uL 01/24/2022 3:32 PM [facility] HGB 10.7(L) 12.3 - 15.3 G/DL 01/24/2022 3:32 PM [facility] HCT 31.7(L) 35.9 - 44.6 % 01/24/2022 3:32 PM [facility] MCV 90.6 80.0 - 96.0 FL 01/24/2022 3:32 PM STAFF WEAPONS OFFICER [facility] MCH 30.6 25.3 - 30.9 PG 01/24/2022 3:32 PM STAFF WEAPONS OFFICER [facility] MCHC 33.8 31.0 - 34.1 G/DL 01/24/2022 3:32 PM [facility] RDW 14.0 12.4 - 15.1 % 01/24/2022 3:32 PM STAFF WEAPONS OFFICER [facility] PLT 228 151 - 353 x10'3/uL 01/24/2022 3:32 PM [facility] MPV 11.8 9.6 - 12.0 FL 01/24/2022 3:32 PM [facility] RBC MORPHOLOGY NORMAL 01/24/2022 3:32 PM [facility] PLT MORPH. NORMAL 01/24/2022 3:32 PM [facility] WBC MORPHOLOGY NORMAL 01/24/2022 3:32 PM [facility] LYMPHOCYTES % 25.9 15.8 - 45.0 % 01/24/2022 3:32 PM [facility] NEUTROPHILS % 63.4 42.1 - 71.9 % 01/24/2022 3:32 PM [facility] MONOCYTES % 5.7 5.7 - 12.5 % 01/24/2022 3:32 PM [facility] EOSINOPHILS 4.1 0.0 - 5.6 % 01/24/2022 3:32 PM [facility] BASOPHILS 0.7 0.0 - 1.3 % 01/24/2022 3:32 PM [facility] ABS. NEUTROPHILS 5.11 1.40 - 6.00 x10'3/uL 01/24/2022 3:32 PM [facility] IMMATURE GRANS % 0.2 0.0 - 0.5 % 01/24/2022 3:32 PM [facility] ABS. LYMPHOCYTES 2.09 0.80 - 4.70 x10'3/uL 01/24/2022 3:32 PM [facility] 01/24/2022 12:3 0 PM STAFF WEAPONS OFFICER us Abiodun Segura II, MD LABORATORY Final R esult [facility] [address] [facility] [place] [address], [place] [phone] * C-REACTIVE PROTEIN (01/24/2022 12:30 PM STAFF WEAPONS OFFICER) C-REACTIVE PROTEIN 0.50 <0.9 mg/dL 01/24/2022 3:59 PM STAFF WEAPONS OFFICER [facility] 01/24/2022 12:3 0 PM STAFF WEAPONS OFFICER Abiodun Segura II, MD LABORATORY Final R esult Performing Organization Address City[facility] Co de Phone Number [facility] [address] [place] [address], [place] [phone] * CK (CPK) (01/24/2022 12:30 PM STAFF WEAPONS OFFICER) CPK 183 26 - 192 U/L 01/24/2022 3:59 PM STAFF WEAPONS OFFICER [facility] 01/24/2022 12:3 0 PM STAFF WEAPONS OFFICER Abiodun Segura II, MD LABORATORY Final R esult Performing Organization Address City/[facility] de Phone Number [facility] [address] [place] [address], [place] [phone] documented in this encounter Visit Diagnoses 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
--- OUTSIDE RECORDS SUMMARY | 2024-03-03 01:23 | XMS_ITS | Encounter Summary ---
Author Organization [facility] Address [address] [place] [address]. [place] [address] [place] [address] Care Team Providers Care Supervisor Nutritional Yeast Name Role Phone Colton SILVEIRA MD, Abiodun Rushing Primary Care Provider Reason for Visit * Reason Onset Date Comments Medication 04/17/2022 Encounter Details Date Type Department Care Team (Late st Contact Info) Description 04/17/2022 Telephone [facility] Family Medicine [place] [address] [place] [phone] Abiodun Segura II, MD [address] [place] [address] Medication Social History Tobacco Use [...] Coronavirus/COVID-19? No / Unsure 04/04/2022 11:24 AM GUEST EXPERIENCE SPECIALIST documented as of this encounter Functional [...] switch back to 3.0 mg when available. T EXPERIENCE SPECIALIST * Debra Cruz - 04/17/2022 2:11 PM CST [facility] called in wanting to know if the following script for TRULICITY can be given with 1MG doasge. The 3MG doasge is on back order at the following [facility] and surroundings as well. T EXPERIENCE SPECIALIST documented in this encounter Plan of Treatment Upcoming Encounters Date Type Department Care Team (Late st Contact Info) Description 03/14/2024 11:45 AM GUEST EXPERIENCE SPECIALIST Office Visit [facility] [phone] Marvin Mckeon MD Three [facility] [address] [place], [place] [phone] 03/20/2024 11:30 AM GUEST EXPERIENCE SPECIALIST Office Visit [facility] Family Medicine - [place] [address] [place] [phone] Abiodun Segura II, MD [address] [place] [address] documented as of this encounter Visit Diagnoses Not on filedocumented in this encounter Additional Health Concerns Assessment Noted Time PHQ-9 Depression Total Score: 0 03/08/19 9:30 AM GUEST EXPERIENCE SPECIALIST documented as of this encounter Care Teams Supervisor Nutritional Yeast Relationship Specialty Start Date End Date Abiodun Segura II, MD [address] [place], [place] [phone] PCP - General FAMILY PRACTICE 03/09/21 documented as of this encounter
--- OUTSIDE RECORDS SUMMARY | 2024-03-03 01:23 | XMS_ITS | Encounter Summary ---
Author Organization [facility] Address [address] [place] [address]. [place], [place] [address] [place] [address] Care Team Providers Care Data Center Architect Name Role Phone Colton SILVEIRA MD, Abiodun Rushing Primary Care Provider Victoriano Langston MD Unavailable [phone] Encounter Details Date Type Department Care Team [...] st Contact Info) Description 03/14/2024 11:45 AM CURTAIN CLEANER Office Visit [facility] [phone] Marvin Mckeon MD [facility] [address] [place] [address] 03/20/2024 11:30 AM CURTAIN CLEANER Office Visit [facility] Medical Group Family Medicine - [address] [phone] Abiodun Segura II, MD [address] [place] [address] documented as of this encounter Visit Diagnoses Not on filedocumented in this encounter Additional Health Concerns Assessment Noted Time PHQ-9 Depression Total Score: 0 03/08/19 22 9:30 AM CURTAIN CLEANER documented as of this encounter Care Teams Data Center Architect Relationship Specialty Start Date End Date Abiodun Segura II, MD [address] [place] [address] PCP - General FAMILY PRACTICE 03/09/21 [place] [address] [place] [address] PODIATRY/SURGERY 05/05/22 documented as of this encounter
--- OUTSIDE RECORDS SUMMARY | 2024-03-03 01:23 | XMS_ITS | Encounter Summary ---
Author Organization [facility] Address [address] [place] [address]. [place] [address] [place] [address] Care Team Providers Care General Farm Manager Name Role Phone Colton SILVEIRA MD, Yasmin Rushing Primary Care Provider Reason for Visit * Reason Comments Diabetes Pt present for diabe neil follow up. Encounter Details Date Type Department Care Team (Late st Contact Info) Description 03/15/2022 9:20 AM JOURNEYMAN MACHINIST Office Visit [facility] Family [facility] - [place] [address] [place] [address] Yasmin Valenzuela II, MD [address] [place] [address] Diabetes (Pt present for diabetes [...] Coronavirus/COVID-19? No / Unsure 03/15/2022 9:40 AM JOURNEYMAN MACHINIST documented as of this encounter Last Filed Vital Signs Vital Sign Reading Time Taken Comments Blood Pressure 132/76 03/15/2022 10:04 AM JOURNEYMAN MACHINIST Pulse 89 03/15/2022 9:48 AM JOURNEYMAN MACHINIST Temperature 36.7 ??C (98 ??F) 03/15/2022 9:48 AM JOURNEYMAN MACHINIST Respiratory Rate - - Oxygen Saturation 100% 03/15/2022 9:48 AM JOURNEYMAN MACHINIST Inhaled Oxygen Concentration - - Weight 85.3 kg (188 lb) 03/15/2022 9:48 AM JOURNEYMAN MACHINIST Height - - Body Mass Index 30.34 01/08/2022 5:27 PM JOURNEYMAN MACHINIST documented in this encounter Functional Status * [...] not included. [facility] FAMILY MEDICINE - [address] [address] OFFICE FOLLOW UP NOTE Encounter [...] with long- term current use of insulin ([facility]) A1C (BACK OFFICE) HEMOGLOBIN, GLYCOSYLATED 2. Ulcer of right foot, limited to breakdown of skin ([facility]) 3. Primary hypertension COMPREHENSIVE METABOLIC [...] with long- term current use of insulin ([facility]) Hemoglobin A1c is steady at [...] Portions of this note were dictated using [employer] speech recognition software. Occasional wrong wordor sound-alike substitutions may have occurred due to the inherent limitations of voice recognition software. Please read the chart carefully and recognize, using context, where the substitutions may have occurred. NEYMAN MACHINIST documented in this encounter Plan of Treatment Upcoming Encounters Date Type Department Care Team (Late st Contact Info) Description 03/14/2024 11:45 AM JOURNEYMAN MACHINIST Office Visit [facility] [phone] Marvin Mckeon MD [address] [facility] [address] [place], [place] [phone] 03/20/2024 11:30 AM JOURNEYMAN MACHINIST Office Visit [facility] Family Medicine - [place] [address] [place] [phone] Yasmin Valenzuela II, MD [address] [place] [address] documented as of this encounter Procedures Procedure Name Priority Date/Time Associated Diagnosis Comments HEMOGLOBIN, GLYCOSYLATED Routine 03/15/2022 10:35 AM JOURNEYMAN MACHINIST Type 2 diabetes mellitus with diabetic neuropathic arthropathy, with long-term current use of insulin ([facility]) documented in this encounter Results * (ABNORMAL) LIPID PANEL (04/05/2022 11:13 AM JOURNEYMAN MACHINIST) CHOLESTEROL 182 <200 MG/DL 04/05/2022 11:44 AM [facility] TRIGLYCERIDES 210(H) <150 MG/DL 04/05/2022 11:44 AM [facility] HDL 41 >40.0 MG/DL 04/05/2022 11:44 AM [facility] LDL (CALCULATED) 99 <100 MG/DL 04/05/2022 11:44 AM [facility] NON HDL CHOLESTEROL 141(H) <130 MG/DL 04/05/2022 11:44 AM [facility] CHOL/HDL RATIO 4.4 0.0 - 4.5 04/05/2022 11:44 AM [facility] VLDL CALCULATION 42 5 - 55 MG/DL 04/05/2022 11:44 AM [facility] LIPID INTERPRETATION 04/05/2022 11:44 AM [facility] Comment: NIH [...] ? >=160 ?>=130 04/05/2022 11:1 3 AM JOURNEYMAN MACHINIST Yasmin Valenzuela II, MD LABORATORY Final R esult [facility] [address] [place] [address], [place] [phone] * (ABNORMAL) CBC W/DIFF AUTOMATED (04/05/2022 11:13 AM JOURNEYMAN MACHINIST) [facility] WBC 8.7 4.5 - 11.0 x10'3/uL 04/05/2022 11:24 AM [facility] RBC 4.14(L) 4.20 - 5.40 x10'6/uL 04/05/2022 11:24 AM [facility] HGB 12.7 12.0 - 16.0 G/DL 04/05/2022 11:24 AM [facility] HCT 37.9(L) 38.0 - 48.0 % 04/05/2022 11:24 AM [facility] MCV 91.5 81.0 - 99.0 FL 04/05/2022 11:24 AM [facility] MCH 30.7 27.0 - 31.0 PG 04/05/2022 11:24 AM [facility] MCHC 33.5 32.0 - 36.0 G/DL 04/05/2022 11:24 AM [facility] RDW 12.6 11.5 - 14.5 % 04/05/2022 11:24 AM [facility] PLT 263 130 - 400 x10'3/uL 04/05/2022 11:24 AM [facility] MPV 10.9 9.3 - 12.2 FL 04/05/2022 11:24 AM [facility] DIFFERENTIAL TYPE AUTOMATED DIFFERENTIAL 04/05/2022 11:24 AM [facility] NEUTROPHILS % 62.1 % 04/05/2022 11:24 AM [facility] LYMPHOCYTES % 29.9 % 04/05/2022 11:24 AM [facility] MONOCYTES % 4.4 % 04/05/2022 11:24 AM [facility] EOSINOPHILS 2.6 % 04/05/2022 11:24 AM [facility] BASOPHILS 0.8 % 04/05/2022 11:24 AM [facility] IMMATURE GRANS % 0.2 % 04/05/19 11:24 AM [facility] ABS. NEUTROPHILS TOTAL 5.40 1.80 - 7.70 x10'3/uL 04/05/2022 11:24 AM [facility] ABS. LYMPHOCYTES 2.60 1.00 - 4.80 x10'3/uL 04/05/2022 11:24 AM [facility] ABS. MONOCYTES 0.38 0.24 - 0.86 x10'3/uL 04/05/2022 11:24 AM [facility] ABS. EOSINOPHILS 0.23 0.04 - 0.36 x10'3/uL 04/05/2022 11:24 AM [facility] ABS. BASOPHILS 0.07 0.01 - 0.08 x10'3/uL 04/05/2022 11:24 AM [facility] ABS. IMMATURE GRANULOCYTES 0.02 0.00 - 0.49 x10'3/uL 04/05/2022 11:24 AM [facility] 04/05/2022 11:1 3 AM JOURNEYMAN MACHINIST Yasmin Valenzuela II, MD LABORATORY Final R esult [facility] [address] [place] [address], * (ABNORMAL) COMPREHENSIVE METABOLIC PANEL (04/05/2022 11:13 AM JOURNEYMAN MACHINIST) [facility] GLUCOSE 154(H) 70 - 99 MG/DL 04/05/2022 11:44 AM [facility] BUN 17 7 - 18 MG/DL 04/05/2022 11:44 AM [facility] CREATININE S/P/B 0.88 0.55 - 1.02 MG/DL 04/05/2022 11:44 AM [facility] SODIUM S/P/B 141 136 - 145 MMOL/L 04/05/2022 11:44 AM [facility] POTASSIUM S/P/B 4.0 3.5 - 5.1 MMOL/L 04/05/2022 11:44 AM [facility] CHLORIDE S/P/B 105 100 - 108 MMOL/L 04/05/2022 11:44 AM [facility] CO2 28.9 21 - 32 MMOL/L 04/05/2022 11:44 AM [facility] CALCIUM S/P/B 9.4 8.5 - 10.1 MG/DL 04/05/2022 11:44 AM [facility] BILIRUBIN TOTAL S/P/B 0.3 0.2 - 1.2 MG/DL 04/05/2022 11:44 AM [facility] Comment: THIS ASSAY IS NOT RECOMMENDED FOR PATIENTS UNDERGOING TREATMENT WITH ELTROMBOPAG DUE TO THE POTENTIAL FOR FALSELY ELEVATED RESULTS. TOTAL PROTEIN S/P/B 9.1(H) 6.4 - 8.2 G/DL 04/05/2022 11:44 AM [facility] ALBUMIN S/P/B 3.3(L) 3.4 - 5.0 G/DL 04/05/2022 11:44 AM [facility] AST 20 15 - 37 U/L 04/05/2022 11:44 AM [facility] ALT 24 14 - 55 U/L 04/05/2022 11:44 AM [facility] ALKALINE PHOSPHATASE S/P/B 149(H) 50 - 136 U/L 04/05/2022 11:44 AM [facility] ANION GAP 7.1 5 - 15 MMOL/L 04/05/2022 11:44 AM [facility] BUN CREATININE RATIO 19.3 6 - 26 04/05/2022 11:44 AM [facility] A/G RATIO 0.6(L) 1.0 - 2.0 RATIO 04/05/2022 11:44 AM [facility] GFR ESTIMATE 80(L) >90 ML/MIN/1.7 3 M2 04/05/2022 11:44 AM [facility] Comment: NOTE: eGFR is not calculated for patients <18 years of age. This is an estimated GFR calculation using the new CKD EPI creatinine equation without race and so does not require a correction factor for race. This estimated GFR should not be used for calculating drug doses. 04/05/2022 11:1 3 AM JOURNEYMAN MACHINIST us Yasmin Valenzulea II, MD LABORATORY Final R esult [facility] [address] [place] [address], * (ABNORMAL) HEMOGLOBIN, GLYCOSYLATED (04/05/2022 11:13 AM JOURNEYMAN MACHINIST) HGB A1C 8.0(H) <5.7 % 04/05/2022 3:46 PM JOURNEYMAN MACHINIST [facility] Comment: ADA GUIDELINES 2010 5.7 TO 6.4% INCREASED RISK OF DIABETES > OR = 6.5% CONSISTENT WITH DIABETES ESTIMATED AVG GLUCOSE 183 mg/dL 04/05/2022 3:46 PM JOURNEYMAN MACHINIST [facility] 04/05/2022 11:1 3 AM JOURNEYMAN MACHINIST Yasmin Valenzuela II, MD LABORATORY Final R esult [facility] [address] [place] [address], [place] [phone] * A1C (BACK OFFICE) (03/15/2022 10:35 AM JOURNEYMAN MACHINIST) HGB A1C 7.3 % [facility]-[address],[place] 03/15/2022 10:3 5 AM JOURNEYMAN MACHINIST Yasmin Valenzuela II, MD LABORATORY Final R esult [facility]-[address],[place] [address] [place] [address], [place] [phone] documented in this encounter Visit Diagnoses Diagnosis Type 2 diabetes mellitus with diabetic neuropathic arthropathy, with long-term current use of insulin ([facility])- Primary Ulcer of right foot, limited to breakdown of skin ([facility]) Primary hypertension Unspecified essential hypertension Hypercholesteremia Pure hypercholesterolemia Chronic idiopathic constipation Unspecified constipation Muscle spasm Spasm of muscle Vision decreased Unspecified visual loss documented in this encounter Additional Health Concerns Assessment Noted Time PHQ-9 Depression Total Score: 0 03/08/19 22 9:30 AM JOURNEYMAN MACHINIST documented as of this encounter Care Teams General Farm Manager Relationship Specialty Start Date End Date Yasmin Valenzuela II, MD [address] [place] [address] PCP - General FAMILY PRACTICE 03/09/21 documented as of this encounter
--- OUTSIDE RECORDS SUMMARY | 2024-03-03 01:23 | XMS_ITS | Encounter Summary ---
Author Organization [facility] Address [address] [place] [address]. [place] [address] [place] [address] Care Team Providers Care Continuous Loft Operator Name Role Phone Colton SILVEIRA MD, Abiodun Rushing Primary Care Provider Encounter Details Date Type Department Care Team (Late st Contact Info) Description 01/24/2022 Orders Only [facility] [address] [place], [place] [phone] Abiodun Segura II, MD [address] [place] [address] Social History Tobacco Use Types Packs/Day [...] Coronavirus/COVID-19? No / Unsure 01/10/2022 11:53 AM TOOL LAPPER HAND documented as of this encounter Functional [...] Contact Info) Description 03/14/2024 11:45 AM TOOL LAPPER HAND Office Visit [facility] [phone] Marvin Mckeon MD [facility] [address] [place] [address] 03/20/2024 11:30 AM TOOL LAPPER HAND Office Visit [facility] Family [facility] - [place] [address] [place] [phone] Abiodun Segura II, MD [address] [place] [address] documented as of this encounter Results * CK (CPK) (01/24/2022 12:30 PM TOOL LAPPER HAND) CPK 183 26 - 192 U/L 01/24/2022 3:59 PM TOOL LAPPER HAND [facility] 01/24/2022 12:3 0 PM TOOL LAPPER HAND Abiodun Segura II, MD LABORATORY Final [facility] Performing Organization Address [facility]/ZIP Co de Phone Number [facility] [address] [place] [address], [place] [phone] * C-REACTIVE PROTEIN (01/24/2022 12:30 PM TOOL LAPPER HAND) C-REACTIVE PROTEIN 0.50 <0.9 mg/dL 01/24/2022 3:59 PM TOOL LAPPER HAND [facility] 01/24/2022 12:3 0 PM TOOL LAPPER HAND Abiodun Segura II, MD LABORATORY Final R [facility] Performing Organization Address City/[facility]/ZIP Co de Phone Number [facility] [address] [place] [address], [place] [phone] * (ABNORMAL) CBC W/DIFF AUTOMATED (01/24/2022 12:30 PM TOOL LAPPER HAND) WBC 8.1 4.4 - 11.0 x10'3/uL 01/24/2022 3:32 PM TOOL LAPPER HAND [facility] RBC 3.50(L) 4.50 - 5.10 x10'6/uL 01/24/2022 3:32 PM TOOL LAPPER HAND [facility] HGB 10.7(L) 12.3 - 15.3 G/DL 01/24/2022 3:32 PM TOOL LAPPER HAND [facility] HCT 31.7(L) 35.9 - 44.6 % 01/24/2022 3:[address] [facility] MCV 90.6 80.0 - 96.0 FL 01/24/2022 3:[address] [facility] MCH 30.6 25.3 - 30.9 PG 01/24/2022 3:[address] [facility] MCHC 33.8 31.0 - 34.1 G/DL 01/24/2022 3:[address] [facility] RDW 14.0 12.4 - 15.1 % 01/24/2022 3:[address] [facility] PLT 228 151 - 353 x10'3/uL 01/24/2022 3:[address] [facility] MPV 11.8 9.6 - 12.0 FL 01/24/2022 3:[address] [facility] RBC MORPHOLOGY NORMAL 01/24/2022 3:[address] [facility] PLT MORPH. NORMAL 01/24/2022 3:[address] [facility] WBC MORPHOLOGY NORMAL 01/24/2022 3:[address] [facility] LYMPHOCYTES % 25.9 15.8 - 45.0 % 01/24/2022 3:[address] [facility] NEUTROPHILS % 63.4 42.1 - 71.9 % 01/24/2022 3:[address] [facility] MONOCYTES % 5.7 5.7 - 12.5 % 01/24/2022 3:[address] [facility] EOSINOPHILS 4.1 0.0 - 5.6 % 01/24/2022 3:[address] [facility] BASOPHILS 0.7 0.0 - 1.3 % 01/24/2022 3:[address] [facility] ABS. NEUTROPHILS 5.11 1.40 - 6.00 x10'3/uL 01/24/2022 3:32 PM TOOL LAPPER HAND [facility] IMMATURE GRANS % 0.2 0.0 - 0.5 % 01/24/2022 3:32 PM TOOL LAPPER HAND [facility] ABS. LYMPHOCYTES 2.09 0.80 - 4.70 x10'3/uL 01/24/2022 3:32 PM TOOL LAPPER HAND [facility] 01/24/2022 12:3 0 PM TOOL LAPPER HAND Abiodun Segura II, MD LABORATORY Final R esult [facility] [address] [place] [address], [place] [phone] * (ABNORMAL) COMPREHENSIVE METABOLIC PANEL (01/24/2022 12:30 PM TOOL LAPPER HAND) GLUCOSE 264(H) 70 - 99 MG/DL 01/24/2022 3:59 PM TOOL LAPPER HAND [facility] BUN 17 7 - 18 MG/DL 01/24/2022 3:[address] [facility] CREATININE S/P/B 0.96 0.55 - 1.02 MG/DL 01/24/2022 3:[address] [facility] SODIUM S/P/B 141 136 - 145 MMOL/L 01/24/2022 3:[address] [facility] POTASSIUM S/P/B 3.4(L) 3.5 - 5.1 MMOL/L 01/24/2022 3:[address] [facility] CHLORIDE S/P/B 103 100 - 108 MMOL/L 01/24/2022 3:[address] [facility] CO2 24.4 21 - 32 MMOL/L 01/24/2022 3:[address] [facility] CALCIUM S/P/B 8.3(L) 8.5 - 10.1 MG/DL 01/24/2022 3:[address] [facility] BILIRUBIN TOTAL S/P/B 0.4 0.2 - 1.2 MG/DL 01/24/2022 3:[address] [facility] TOTAL PROTEIN S/P/B 7.9 6.4 - 8.2 G/DL 01/24/2022 3:[address] [facility] ALBUMIN S/P/B 3.0(L) 3.4 - 5.0 G/DL 01/24/2022 3:[address] [facility] AST 29 15 - 37 U/L 01/24/2022 3:[address] [facility] ALT 37 14 - 55 U/L 01/24/2022 3:[address] [facility] ALKALINE PHOSPHATASE S/P/B 149(H) 50 - 136 U/L 01/24/2022 3:[address] [facility] ANION GAP 13.6 5 - 15 MMOL/L 01/24/2022 3:[address] [facility] BUN CREATININE RATIO 17.7 6 - 26 01/24/2022 3:[address] [facility] A/G RATIO 0.6(L) 1.0 - 2.0 RATIO 01/24/2022 3:[address] [facility] GFR ESTIMATE 72(L) >90 ML/MIN/1.7 3 M2 01/24/2022 3:[address] [facility] Comment: NOTE: eGFR is not calculated for patients <18 years of age. This is an estimated GFR calculation using the new CKD EPI creatinine equation without race and so does not require a correction factor for race. This estimated GFR should not be used for calculating drug doses. 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
--- OUTSIDE RECORDS SUMMARY | 2024-03-03 01:24 | XMS_ITS | Encounter Summary ---
Author Organization [facility] Address [address] [place] [address]. [place], [place] [address] [place] [address] Care Team Providers Care Access Clinician Name Role Phone Colton SILVEIRA MD, Abiodun [...] Coronavirus/COVID-19? No / Unsure 01/10/2022 11:53 AM PRECISION AIRCRAFT STRUCTURE ASSEMBLER documented as of this encounter Functional [...] Contact Info) Description 03/14/2024 11:45 AM PRECISION AIRCRAFT STRUCTURE ASSEMBLER Office Visit [facility] [phone] Marvin Mckeon MD [facility] [address] [place] [address] 03/20/2024 11:30 AM PRECISION AIRCRAFT STRUCTURE ASSEMBLER Office Visit [facility] Family Medicine - [place] [address] [place] [phone] Abiodun Segura II, MD [address] [place] [address] documented as of this encounter Procedures Procedure Name Priority Date/Time Associated Diagnosis Comments OUTSIDE LAB (SCAN ORDER) 01/03/2022 OUTSIDE LAB (SCAN ORDER) 01/03/2022 OUTSIDE LAB (SCAN ORDER) 01/03/2022 documented in this encounter Results * OUTSIDE LAB (SCAN) (01/03/2022) 01/03/2022 us [facility] Scanned SCANNING Final Resu lt * OUTSIDE LAB (SCAN) (01/03/2022) 01/03/2022 us [facility] Scanned SCANNING Final Resu lt * OUTSIDE LAB (SCAN) (01/03/2022) 01/03/2022 [facility] Scanned SCANNING Final Resu lt documented in this encounter Visit Diagnoses Not on filedocumented in this encounter Additional Health Concerns Infection Onset Date Last Indicated Resolved Time COVID-19 Rule Out 01/08/2022 01/08/2022 01/08/2022 6:50 PM PRECISION AIRCRAFT STRUCTURE ASSEMBLER Assessment Noted Time PHQ-9 Depression Total Score: 0 03/08/19 9:30 AM PRECISION AIRCRAFT STRUCTURE ASSEMBLER documented as of this encounter Care Teams Access Clinician Relationship Specialty Start Date End Date Abiodun Segura II, MD [address] [place] [address] PCP - General FAMILY PRACTICE 03/09/21 documented as of this encounter
--- OUTSIDE RECORDS SUMMARY | 2024-03-03 01:24 | XMS_ITS | Encounter Summary ---
Author Organization [facility] Address [address] [place] [address]. [place], [place] [address] [place] [address] Care Team Providers Care Tax Preparer Name Role Phone Colton SILVEIRA MD, Abiodun [...] Coronavirus/COVID-19? No / Unsure 01/08/2022 5:16 PM BAND SAWMILL OPERATOR documented as of this encounter Functional [...] Contact Info) Description 03/14/2024 11:45 AM BAND SAWMILL OPERATOR Office Visit [facility]-[address] [phone] Marvin Mckeon MD [facility] [address] [facility] [place] [address] 03/20/2024 11:30 AM BAND SAWMILL OPERATOR Office Visit [facility] Family [facility] [address] [place] [phone] Abiodun Segura II, MD [address] [place] [phone] documented as of this encounter Visit Diagnoses Not on filedocumented in this encounter Additional Health Concerns Infection Onset Date Last Indicated Resolved Time COVID-19 Rule Out 01/08/2022 01/08/2022 01/08/2022 6:50 PM BAND SAWMILL OPERATOR Assessment Noted Time PHQ-9 Depression Total Score: 0 03/08/19 9:30 AM BAND SAWMILL OPERATOR documented as of this encounter Care Teams Tax Preparer Relationship Specialty Start Date End Date Abiodun Segura II, MD [address] [place] [address] PCP - General FAMILY PRACTICE 03/09/21 documented as of this encounter
--- OUTSIDE RECORDS SUMMARY | 2024-03-03 01:24 | XMS_ITS | Encounter Summary ---
Author Organization [facility] Address [address] [place] [address]. [place], [place] [address] [place] [address] Care Team Providers Care Transportation Consultant Name Role Phone Colton SILVEIRA MD, Abiodun Rushing Primary Care Provider Reason for Visit * Auth/Cert Specialty Diagnoses / Procedures Referred By Lyla chaney Referred To Contact Home Health Services / [facility] Home Care [address] [place] [address] [place] [address] Phone: tel: fax: Referral ID Status Reason Start Date Expiration Date Visits Re quested Visits Authorized [id number] 1 1 Encounter Details Date Type Department Care Team (Late st Contact Info) Description 01/17/2022 11:30 AM ACCOUNTANT AUDITOR Home Care Visit [facility] Home [address] [place] [address] [place] [address] Ysabel Adams RN SN HOME VISIT Social [...] Coronavirus/COVID-19? No / Unsure 01/10/2022 11:53 AM ACCOUNTANT AUDITOR documented as of this encounter Last Filed Vital Signs Vital Sign Reading Time Taken Comments Blood Pressure 120/70 01/17/2022 11:46 AM ACCOUNTANT AUDITOR Pulse 88 01/17/2022 11:46 AM ACCOUNTANT AUDITOR Temperature 36.6 ??C (97.9 ??F) 01/17/2022 11:[address] Respiratory Rate 16 01/17/2022 11:46 AM ACCOUNTANT AUDITOR Oxygen Saturation 100% 01/17/2022 11:46 AM ACCOUNTANT AUDITOR Inhaled Oxygen Concentration - - Weight - [...] st Contact Info) Description 03/14/2024 11:45 AM ACCOUNTANT AUDITOR Office Visit [facility]-[address] [phone] Marvin Mckeon MD [address] [facility] [address] [place] [address] 03/20/2024 11:30 AM ACCOUNTANT AUDITOR Office Visit [facility] Family Medicine - [place] 100 [place] [phone] Abiodun Segura II, MD 100 [place], [place] [phone] documented as of this encounter Visit Diagnoses Not on filedocumented in this encounter Additional Health Concerns Assessment Noted Time PHQ-9 Depression Total Score: 0 03/08/19 22 9:30 AM ACCOUNTANT AUDITOR documented as of this encounter Home Health Visit - Care Plan Visit Details Visit Type -SN - Home Visit Discipline -Long-Term Problems Problem Description Start Date Status Goals [...] 12/27/2021 Active 1 goal linked to scheduled/documen rokc intervention 3 goal interventions scheduled/documen rock in [...] scheduled/documen rock intervention 3 goal interventions scheduled/documen rcok in this visit Wound Management Disciplines: SN [...] infection .?? Results to Dr Segura fax [phone] and IV care fax [phone]. Problem:Learning/Te aching Needs - IV Therapy Goal:Patient/caregi britney demonstrates ability to safely perform and/or administer IV flush Completed Obtained from PICC line without difficulty. Patient tolerated good. Specimen taken to [facility]. IV Administration Description: Skilled nurse and [...] in daily log. Instruct to notify physician termite exterminator of fasting blood sugar if <70mg/dl or [...] Completed documented in this encounter Care Teams Transportation Consultant Relationship Specialty Start Date End Date Abiodun Segura II, MD [address] [place] [address] PCP - General FAMILY PRACTICE 03/09/21 documented as of this encounter
--- OUTSIDE RECORDS SUMMARY | 2024-03-03 01:24 | XMS_ITS | Encounter Summary ---
Author Organization [facility] Address [address] [place] [address]. [place], [place] [address] [place] [address] Care Team Providers Care Director Cardiology Name Role Phone Colton SILVEIRA MD, Abiodun Rushing Primary Care Provider Reason for Referral * Imaging (Routine) - Closed Specialty Diagnoses / Procedures Referred By Contac t Referred To Contact RADIOLOGY Diagnoses Pain and numbness of right upper extremity Procedures USV JOANIE DUPLEX UP EXT RT Lex Mancilla PA 1 [place] [address] Phone: tel: fax: Referral ID Status Reason Start Date Expiration Date Visits Re quested Visits Authorized [id number] Closed 01/09/2022 02/09/2023 1 1 SERVICE HOTEL RUNNER Reason for Visit * Imaging (Routine) - Closed Specialty Diagnoses / Procedures Referred By Contac t Referred To Contact RADIOLOGY Diagnoses Pain and numbness of right upper extremity Procedures USV JOANIE DUPLEX UP EXT RT Lex Mancilla PA 1 [place] [address] Phone: tel: fax: Referral ID Status Reason Start Date Expiration Date Visits Re quested Visits Authorized [id number] Closed 01/09/2022 02/09/2023 1 1 Encounter Details Date Type Department Care Team (Latest Contact Info) Description 01/09/2022 8:30 AM FOOD SERVICE HOTEL RUNNER - 01/09/2022 11:59 PM FOOD SERVICE HOTEL RUNNER Hospital Encounter [facility] [place] [address] Lex Mancilla PA 1 [place] [address] Discharge Disposition: Home or Self Care (Routine [...] Coronavirus/COVID-19? No / Unsure 01/08/2022 5:16 PM FOOD SERVICE HOTEL RUNNER documented as of this encounter Functional [...] st Contact Info) Description 03/14/2024 11:45 AM FOOD SERVICE HOTEL RUNNER Office Visit [facility] [address] Marvin Mckeon MD [address] [facility] [address] [place] [address] 03/20/2024 11:30 AM FOOD SERVICE HOTEL RUNNER Office Visit [facility] Medical Group Family Medicine - [place] 100 [place] [phone] Abiodun Segura II, MD 100 [place] [address] documented as of this encounter Procedures Procedure Name Priority Date/Time Associated Diagnosis Comments USV JOANIE DUPLEX UP EXT RT Routine 01/09/2022 8:58 AM FOOD SERVICE HOTEL RUNNER Pain and numbness of right upper extremity documented in this encounter Results * USV JOANIE DUPLEX UP EXT RT (01/09/2022 8:58 AM FOOD SERVICE HOTEL RUNNER) Anatomical Region Laterality Modality Extremity Vascular Ultraso und 01/09/2022 8:38 AM FOOD SERVICE HOTEL RUNNER Narrative 01/09/2022 5:56 PM FOOD SERVICE HOTEL RUNNER ?VENOUS DUPLEX IMAGING ?RIGHT UPPER EXTREMITY ? VASCULAR LAB Pat.Name: ??FORDESMELENA STEPHANIE ?Pat.ID: ?[id number] ? St.Date: ?? 01/09/2022 ?Refer.: ??Abiodun Segura [...] EXTREMITY VASCULAR LAB Pat.Name: LENA YOUNGBLOOD Pat.ID: [id number] .Date: 01/09/2022 Refer.MD: Abiodun Segura Exam Time: [...] Depression Total Score: 0 03/08/19 9:30 AM FOOD SERVICE HOTEL RUNNER documented as of this encounter Care Teams Director Cardiology Relationship Specialty Start Date End Date Abiodun Segura II, MD 100 [place] [address] PCP - General FAMILY PRACTICE 03/09/21 documented as of this encounter
--- OUTSIDE RECORDS SUMMARY | 2024-03-03 01:24 | XMS_ITS | Encounter Summary ---
Author Organization [facility] Address [address] [place] [address]. [place], [place] [address] [place] [address] Care Team Providers Care Campus Recruiting Coordinator Name Role Phone Colton SILVEIRA MD, Abiodun Rushing Primary Care Provider Reason for Visit * Auth/Cert Specialty Diagnoses / Procedures Referred By Lyla chaney Referred To Contact Home Health Services / [facility] Care [address] [place] [address] Phone: tel: fax: Referral ID Status Reason Start Date Expiration Date Visits Re quested Visits Authorized [id number] 1 1 Encounter Details Date Type Department Care Team (Late st Contact Info) Description 12/29/2021 Home Care Visit [facility] Home Care [address] [place] [address] Eusebia Garner, RN CASE COMMUNICATION Social History [...] Contact Info) Description 03/14/2024 11:45 AM ANALYTICAL CONSULTANT Office Visit [facility] [address] Marvin Mckeon MD [facility] [address] [place] [address] 03/20/2024 11:30 AM ANALYTICAL CONSULTANT Office Visit [facility] Medical Group Family Medicine - [place] 100 [place] [address] Abiodun Segura II, MD 100 [place] [address] documented as of this encounter Visit Diagnoses Not on filedocumented in this encounter Additional Health Concerns Assessment Noted Time PHQ-9 Depression Total Score: 0 03/08/19 9:30 AM ANALYTICAL CONSULTANT documented as of this encounter Care Teams Campus Recruiting Coordinator Relationship Specialty Start Date End Date Abiodun Segura II, MD 100 [place] [address] PCP - General FAMILY PRACTICE 03/09/21 documented as of this encounter
--- OUTSIDE RECORDS SUMMARY | 2024-03-03 01:24 | XMS_ITS | Encounter Summary ---
Author Organization [facility] Address [address] [place] [address]. [place] [address] [place] [address] Care Team Providers Care Die Cleaner Name Role Phone Colton SILVEIRA MD, Abiodun Rushing Primary Care Provider Encounter Details Date Type Department Care Team (Late st Contact Info) Description 01/10/2022 1:14 PM TRANSACTION COORDINATOR - 01/10/2022 11:59 PM [facility] Hospital Encounter [facility] [address] [place], [place] [phone] Abiodun Segura II, MD [address] [place] [address] Discharge Disposition: Home or Self Care [...] Coronavirus/COVID-19? No / Unsure 01/10/2022 11:53 AM TRANSACTION COORDINATOR documented as of this encounter Functional [...] st Contact Info) Description 03/14/2024 11:45 AM TRANSACTION COORDINATOR Office Visit [facility]-[address] [address] Marvin Mckeon MD Three [facility] [address] [facility] [place], [place] [phone] 03/20/2024 11:30 AM TRANSACTION COORDINATOR Office Visit [facility] Medical Group Family Medicine - [place] 100 [place] [phone] Abiodun Seguar II, MD 100 [place], [place] [phone] documented as of this encounter Procedures Procedure Name Priority Date/Time Associated Diagnosis Comments COMPREHENSIVE METABOLIC PANEL Routine 01/10/2022 10:45 AM TRANSACTION COORDINATOR Bullosis diabeticorum (CMS/HCC HHS/HCC) C-REACTIVE PROTEIN Routine 01/10/2022 10 :45 AM TRANSACTION COORDINATOR Bullosis diabeticorum (CMS/HCC HHS/HCC) CBC W/DIFF AUTOMATED Routine 01/10/2022 10:45 AM TRANSACTION COORDINATOR Bullosis diabeticorum (CMS/HCC HHS/HCC) CK (CPK) Routine 01/10/2022 10:45 AM TRANSACTION COORDINATOR Bullosis diabeticorum (CMS/HCC HHS/HCC) documented in this encounter Results * (ABNORMAL) COMPREHENSIVE METABOLIC PANEL (01/10/2022 10:45 AM TRANSACTION COORDINATOR) Pathologist [facility] GLUCOSE 106(H) 70 - 99 MG/DL 01/10/2022 2:02 PM [facility] BUN 21(H) 7 - 18 MG/DL 01/10/2022 2:02 PM [facility] CREATININE S/P/B 1.08(H) 0.55 - 1.02 MG/DL 01/10/2022 2:02 PM [facility] SODIUM S/P/B 140 136 - 145 MMOL/L 01/10/2022 2:02 PM [facility] POTASSIUM S/P/B 3.9 3.5 - 5.1 MMOL/L 01/10/2022 2:02 PM [facility] CHLORIDE S/P/B 103 100 - 108 MMOL/L 01/10/2022 2:02 PM [facility] CO2 21.7 21 - 32 MMOL/L 01/10/2022 2:02 PM [facility] CALCIUM S/P/B 9.3 8.5 - 10.1 MG/DL 01/10/2022 2:02 PM [facility] BILIRUBIN TOTAL S/P/B 0.3 0.2 - 1.2 MG/DL 01/10/2022 2:02 PM [facility] TOTAL PROTEIN S/P/B 9.4(H) 6.4 - 8.2 G/DL 01/10/2022 2:02 PM [facility] ALBUMIN S/P/B 3.5 3.4 - 5.0 G/DL 01/10/2022 2:02 PM [facility] AST 46(H) 15 - 37 U/L 01/10/2022 2:02 PM [facility] ALT 52 14 - 55 U/L 01/10/2022 2:02 PM [facility] ALKALINE PHOSPHATASE S/P/B 217(H) 50 - 136 U/L 01/10/2022 2:02 PM [facility] ANION GAP 15.3(H) 5 - 15 MMOL/L 01/10/2022 2:02 PM [facility] BUN CREATININE RATIO 19.4 6 - 26 01/10/2022 2:02 PM [facility] A/G RATIO 0.6(L) 1.0 - 2.0 RATIO 01/10/2022 2:02 PM [facility] GFR ESTIMATE 63(L) >90 ML/MIN/1.7 3 M2 01/10/2022 2:02 PM [facility] Comment: NOTE: eGFR is not calculated for patients <18 years of age. This is an estimated GFR calculation using the new CKD EPI creatinine equation without race and so does not require a correction factor for race. This estimated GFR should not be used for calculating drug doses. 01/10/2022 10:4 5 AM TRANSACTION COORDINATOR Abiodun Segura II, MD LABORATORY Final R esult [facility] [address] [place] [address], [place] [phone] * (ABNORMAL) CBC W/DIFF AUTOMATED (01/10/2022 10:45 AM TRANSACTION COORDINATOR) [facility] Signature WBC 4.6 4.4 - 11.0 x10'3/uL 01/10/2022 1:49 PM TRANSACTION COORDINATOR [facility] RBC 4.01(L) 4.50 - 5.10 x10'6/uL 01/10/2022 1:49 PM [facility] HGB 11.9(L) 12.3 - 15.3 G/DL 01/10/2022 1:49 PM [facility] HCT 35.5(L) 35.9 - 44.6 % 01/10/2022 1:49 PM [facility] MCV 88.5 80.0 - 96.0 FL 01/10/2022 1:49 PM [facility] MCH 29.7 25.3 - 30.9 PG 01/10/2022 1:49 PM [facility] MCHC 33.5 31.0 - 34.1 G/DL 01/10/2022 1:49 PM [facility] RDW 13.4 12.4 - 15.1 % 01/10/2022 1:49 PM [facility] PLT 182 151 - 353 x10'3/uL 01/10/2022 1:49 PM [facility] MPV 12.5(H) 9.6 - 12.0 FL 01/10/2022 1:49 PM [facility] NEUTROPHILS % 50.6 42.1 - 71.9 % 01/10/2022 2:10 PM [facility] LYMPHOCYTES % 33.4 15.8 - 45.0 % 01/10/2022 2:10 PM [facility] BASOPHILS 1.1 0.0 - 1.3 % 01/10/2022 2:10 PM TRANSACTION COORDINATOR [facility] EOSINOPHILS 5.4 0.0 - 5.6 % 01/10/2022 2:10 PM [facility] MONOCYTES % 9.5 5.7 - 12.5 % 01/10/2022 2:10 PM [facility] IMMATURE GRANS % 0.0 0.0 - 0.5 % 01/10/2022 2:10 PM [facility] ABS. NEUTROPHILS 2.33 1.40 - 6.00 x10'3/uL 01/10/2022 2:10 PM [facility] ABS. LYMPHOCYTES 1.54 0.80 - 4.70 x10'3/uL 01/10/2022 2:10 PM [facility] PLT MORPH. PLATELET COUNT MAY BE ARTIFACTUALLY LOW DUE TO PLATELET CLUMPING 01/10/2022 2:10 PM [facility] RBC MORPHOLOGY NORMAL 01/10/2022 2:10 PM [facility] WBC MORPHOLOGY NORMAL 01/10/2022 2:10 PM [facility] 01/10/2022 10:4 5 AM TRANSACTION COORDINATOR us Abiodun Segura II, MD LABORATORY Edited Result - Final [facility] [address] [place] [address], * (ABNORMAL) C-REACTIVE PROTEIN (01/10/2022 10:45 AM TRANSACTION COORDINATOR) C-REACTIVE PROTEIN 3.60(H) <0.9 mg/dL 01/10/2022 2:02 PM [facility] 01/10/2022 10:4 5 AM TRANSACTION COORDINATOR Abiodun Segura II, MD LABORATORY Final R esult Performing Organization Address City/[facility] Co de Phone Number [facility] [address] [place] [address], [place] [phone] * CK (CPK) (01/10/2022 10:45 AM TRANSACTION COORDINATOR) CPK 114 26 - 192 U/L 01/10/2022 2:02 PM TRANSACTION COORDINATOR [facility] 01/10/2022 10:4 5 AM TRANSACTION COORDINATOR Abiodun Segura II, MD LABORATORY Final R esult Performing Organization Address City/[facility] Co de Phone Number [facility] [address] [place] [address], [place] [phone] documented in this encounter Visit Diagnoses 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) Other specified disorder of skin documented in this encounter Additional Health Concerns Assessment Noted Time PHQ-9 Depression Total Score: 0 03/08/19 9:30 AM TRANSACTION COORDINATOR documented as of this encounter Care Teams Die Cleaner Relationship Specialty Start Date End Date Abiodun Sgeura II, MD 100 [place] [address] PCP - General FAMILY PRACTICE 03/09/21 documented as of this encounter
--- OUTSIDE RECORDS SUMMARY | 2024-03-03 01:24 | XMS_ITS | Encounter Summary ---
Author Organization [facility] Address [address] [place] [address]. [place], [place] [address] [place] [address] Care Team Providers Care Master [place] Name Role Phone Colton SILVEIRA MD, Abiodun Rushing Primary Care Provider Reason for Visit * Auth/Cert Specialty Diagnoses / Procedures Referred By Lyla chaney Referred To Contact Home Health Services / [facility] Home Care [address] [place] [address] [place] [address] Phone: tel: fax: Referral ID Status Reason Start Date Expiration Date Visits Re quested Visits Authorized [id number] 1 1 Encounter Details Date Type Department Care Team (Late st Contact Info) Description 01/10/2022 11:00 AM POLICE SUPERINTENDENT Home Care Visit [facility] Home [address] [place] [address] [place] [address] Ysabel Adams RN SN HOME VISIT Social [...] Coronavirus/COVID-19? No / Unsure 01/10/2022 11:53 AM POLICE SUPERINTENDENT documented as of this encounter Last Filed Vital Signs Vital Sign Reading Time Taken Comments Blood Pressure 110/60 01/10/2022 10:17 AM POLICE SUPERINTENDENT Pulse 80 01/10/2022 10:17 AM POLICE SUPERINTENDENT Temperature 36.6 ??C (97.8 ??F) 01/10/2022 10:[address] Respiratory Rate 18 01/10/2022 10:17 AM POLICE SUPERINTENDENT Oxygen Saturation 100% 01/10/2022 10:17 AM POLICE SUPERINTENDENT Inhaled Oxygen Concentration - - Weight - [...] Status Yes 12/17/2021 2:10 AM CDT Amanda uQreshi RN Active * Do you have difficulty [...] st Contact Info) Description 03/14/2024 11:45 AM POLICE SUPERINTENDENT Office Visit [facility] [phone] Marvin Mckeon MD [address] [facility] [address] [place] [address] 03/20/2024 11:30 AM POLICE SUPERINTENDENT Office Visit [facility] Medical Group Family Medicine - [place] 100 [place] [phone] Abiodun Segura II, MD 100 [place], [place] [phone] documented as of this encounter Visit Diagnoses Not on filedocumented in this encounter Additional Health Concerns Assessment Noted Time PHQ-9 Depression Total Score: 0 03/08/19 22 9:30 AM POLICE SUPERINTENDENT documented as of this encounter Home Health Visit - Care Plan Visit Details Visit Type -SN - Home Visit Discipline -Shelter Problems Problem Description Start Date Status Goals [...] infection .?? Results to Dr Segura fax [phone] and IV care fax [phone]. Problem:Learning/Te aching Needs - IV Therapy Goal:Patient/caregi britney demonstrates ability to safely perform and/or administer IV flush Completed Obtained from left ac. Patient tolerated fair. Specimen taken to [facility]. IV Administration Description: Skilled nurse and Caregiver [...] in daily log. Instruct to notify physician air intercept controller supervisor of fasting blood sugar if <70mg/dl or [...] Completed documented in this encounter Care Teams Master [place] Relationship Specialty Start Date End Date Abiodun Segura II, MD [address] [place] [address] PCP - General FAMILY PRACTICE 03/09/21 documented as of this encounter
--- OUTSIDE RECORDS SUMMARY | 2024-03-03 01:24 | XMS_ITS | Encounter Summary ---
Author Organization [facility] Address [address] [place] [address]. [place] [address] [place] [address] Care Team Providers Care Button Decorating Machine Operator Name Role Phone Colton SILVEIRA MD, Abiodun Rushing Primary Care Provider Encounter Details Date Type Department Care Team (Late st Contact Info) Description 12/29/2021 Hospital Follow-up Call [facility] Med/Surg [address] [place] [address] Teresa Amaya RN Social History [...] and states she would recommend the hospital. P MEDICINE PHYSICIAN documented in this encounter Plan of Treatment Upcoming Encounters Date Type Department Care Team (Late st Contact Info) Description 03/14/2024 11:45 AM SLEEP MEDICINE PHYSICIAN Office Visit [facility] [address] Marvin Mckeon MD [facility] [address] [place] [address] 03/20/2024 11:30 AM SLEEP MEDICINE PHYSICIAN Office Visit [facility] Medical Group Family Medicine - [place] 100 [place] [address] Abiodun Segura II, MD 100 [place] [address] documented as of this encounter Visit Diagnoses Not on filedocumented in this encounter Additional Health Concerns Assessment Noted Time PHQ-9 Depression Total Score: 0 03/08/19 9:30 AM SLEEP MEDICINE PHYSICIAN documented as of this encounter Care Teams Button Decorating Machine Operator Relationship Specialty Start Date End Date Abiodun Segura II, MD 100 [place] [address] PCP - General FAMILY PRACTICE 03/09/21 documented as of this encounter
--- OUTSIDE RECORDS SUMMARY | 2024-03-03 01:24 | XMS_ITS | Encounter Summary ---
Author Organization [facility] Address [address] [place] [address]. [place], [place] [address] [place] [address] Care Team Providers Care Runner Out Name Role Phone Colton SILVEIRA MD, Abiodun [...] Coronavirus/COVID-19? No / Unsure 01/10/2022 11:53 AM WAITER WAITRESS documented as of this encounter Functional Status [...] st Contact Info) Description 03/14/2024 11:45 AM WAITER WAITRESS Office Visit [facility]-[address] [address] Marvin Mckeon MD [facility] [address] [place] [address] 03/20/2024 11:30 AM WAITER WAITRESS Office Visit [facility] Medical Group Family Medicine - [address] [phone] Abiodun Segura II, MD [address] [place] [address] documented as of this encounter Visit Diagnoses Not on filedocumented in this encounter Additional Health Concerns Assessment Noted Time PHQ-9 Depression Total Score: 0 03/08/19 22 9:30 AM WAITER WAITRESS documented as of this encounter Care Teams Runner Out Relationship Specialty Start Date End Date Abiodun Segura II, MD 100 [place] [address] PCP - General FAMILY PRACTICE 03/09/21 documented as of this encounter
--- OUTSIDE RECORDS SUMMARY | 2024-03-03 01:24 | XMS_ITS | Encounter Summary ---
Author Organization [facility] Address [address] [place] [address]. [place] [address] [place] [address] Care Team Providers Care Production Support Developer Name Role Phone Colton SILVEIRA MD, Abiodun Rushing Primary Care Provider Encounter Details Date Type Department Care Team (Late st Contact Info) Description 01/17/2022 3:14 PM MAINFRAME CONSULTANT - 01/17/2022 11:59 PM [facility] Hospital Encounter [facility] [address] [place], [place] [phone] Abiodun Segura II, MD [address] [place] [phone] Discharge Disposition: Home or Self Care [...] Coronavirus/COVID-19? No / Unsure 01/10/2022 11:53 AM MAINFRAME CONSULTANT documented as of this encounter Functional [...] st Contact Info) Description 03/14/2024 11:45 AM MAINFRAME CONSULTANT Office Visit [facility] [phone] Marvin Mckeon MD [facility] [address] [facility] [place], [place] [phone] 03/20/2024 11:30 AM MAINFRAME CONSULTANT Office Visit [facility] Family [facility] - [place] [address] [place] [phone] Abiodun Segura II, MD [address] [place], [place] [phone] documented as of this encounter Procedures Procedure Name Priority Date/Time Associated Diagnosis Comments COMPREHENSIVE METABOLIC PANEL Routine 01/17/2022 12:15 PM MAINFRAME CONSULTANT Bullosis diabeticorum (CMS/HCC HHS/HCC) Face, neck, and scalp except eye, blister, infected C-REACTIVE PROTEIN Routine 01/17/2022 12 :15 PM MAINFRAME CONSULTANT Bullosis diabeticorum (CMS/HCC HHS/HCC) Face, neck, and scalp except eye, blister, infected CBC W/DIFF AUTOMATED Routine 01/17/2022 12:15 PM MAINFRAME CONSULTANT Bullosis diabeticorum (CMS/HCC HHS/HCC) Face, neck, and scalp except eye, blister, infected CK (CPK) Routine 01/17/2022 12:15 PM MAINFRAME CONSULTANT Bullosis diabeticorum (CMS/HCC HHS/HCC) Face, neck, and scalp except eye, blister, infected documented in this encounter Results * (ABNORMAL) CBC W/DIFF AUTOMATED (01/17/2022 12:15 PM MAINFRAME CONSULTANT) WBC 8.5 4.4 - 11.0 x10'3/uL 01/17/2022 3:25 PM MAINFRAME CONSULTANT [facility] RBC 3.60(L) 4.50 - 5.10 x10'6/uL 01/17/2022 3:25 PM MAINFRAME CONSULTANT [facility] HGB 10.9(L) 12.3 - 15.3 G/DL 01/17/2022 3:[address] [facility] HCT 31.6(L) 35.9 - 44.6 % 01/17/2022 3:25 PM MAINFRAME CONSULTANT [facility] MCV 87.8 80.0 - 96.0 FL 01/17/2022 3:25 PM MAINFRAME CONSULTANT [facility] MCH 30.3 25.3 - 30.9 PG 01/17/2022 3:25 PM MAINFRAME CONSULTANT [facility] MCHC 34.5(H) 31.0 - 34.1 G/DL 01/17/2022 3:[address] [facility] RDW 13.4 12.4 - 15.1 % 01/17/2022 3:[address] [facility] PLT 253 151 - 353 x10'3/uL 01/17/2022 3:[address] [facility] MPV 11.4 9.6 - 12.0 FL 01/17/2022 3:[address] [facility] RBC MORPHOLOGY NORMAL 01/17/2022 3:[address] [facility] PLT MORPH. NORMAL 01/17/2022 3:[address] [facility] WBC MORPHOLOGY NORMAL 01/17/2022 3:[address] [facility] LYMPHOCYTES % 31.9 15.8 - 45.0 % 01/17/2022 3:[address] [facility] NEUTROPHILS % 58.6 42.1 - 71.9 % 01/17/2022 3:[address] [facility] MONOCYTES % 5.5(L) 5.7 - 12.5 % 01/17/2022 3:[address] [facility] EOSINOPHILS 3.1 0.0 - 5.6 % 01/17/2022 3:[address] [facility] BASOPHILS 0.5 0.0 - 1.3 % 01/17/2022 3:[address] [facility] ABS. NEUTROPHILS 5.00 1.40 - 6.00 x10'3/uL 01/17/2022 3:[address] [facility] IMMATURE GRANS % 0.4 0.0 - 0.5 % 01/17/2022 3:[address] [facility] ABS. LYMPHOCYTES 2.72 0.80 - 4.70 x10'3/uL 01/17/2022 3:[address] [facility] 01/17/2022 12:1 5 PM MAINFRAME CONSULTANT Abiodun Segura II, MD LABORATORY Final R esult [facility] [address] [place] [address], [place] [phone] * (ABNORMAL) COMPREHENSIVE METABOLIC PANEL (01/17/2022 12:15 PM MAINFRAME CONSULTANT) GLUCOSE 145(H) 70 - 99 MG/DL 01/17/2022 3:39 PM MAINFRAME CONSULTANT [facility] BUN 21(H) 7 - 18 MG/DL 01/17/2022 3:[address] [facility] CREATININE S/P/B 0.84 0.55 - 1.02 MG/DL 01/17/2022 3:[address] [facility] SODIUM S/P/B 142 136 - 145 MMOL/L 01/17/2022 3:[address] [facility] POTASSIUM S/P/B 3.4(L) 3.5 - 5.1 MMOL/L 01/17/2022 3:[address] [facility] CHLORIDE S/P/B 105 100 - 108 MMOL/L 01/17/2022 3:[address] [facility] CO2 24.7 21 - 32 MMOL/L 01/17/2022 3:[address] [facility] CALCIUM S/P/B 8.8 8.5 - 10.1 MG/DL 01/17/2022 3:[address] [facility] BILIRUBIN TOTAL S/P/B 0.4 0.2 - 1.2 MG/DL 01/17/2022 3:[address] [facility] TOTAL PROTEIN S/P/B 8.2 6.4 - 8.2 G/DL 01/17/2022 3:39 PM MAINFRAME CONSULTANT [facility] ALBUMIN S/P/B 3.1(L) 3.4 - 5.0 G/DL 01/17/2022 3:[address] [facility] AST 24 15 - 37 U/L 01/17/2022 3:[address] [facility] ALT 11(L) 14 - 55 U/L 01/17/2022 3:[address] [facility] ALKALINE PHOSPHATASE S/P/B 150(H) 50 - 136 U/L 01/17/2022 3:[address] [facility] ANION GAP 12.3 5 - 15 MMOL/L 01/17/2022 3:[address] [facility] BUN CREATININE RATIO 25.0 6 - 26 01/17/2022 3:[address] [facility] A/G RATIO 0.6(L) 1.0 - 2.0 RATIO 01/17/2022 3:[address] [facility] GFR ESTIMATE 85(L) >90 ML/MIN/1.7 3 M2 01/17/2022 3:[address] [facility] Comment: NOTE: eGFR is not calculated for patients <18 years of age. This is an estimated GFR calculation using the new CKD EPI creatinine equation without race and so does not require a correction factor for race. This estimated GFR should not be used for calculating drug doses. 01/17/2022 12:1 5 PM MAINFRAME CONSULTANT us Abiodun Segura II, MD LABORATORY Final R esult [facility] [address] [place] [address], [place] [phone] * C-REACTIVE PROTEIN (01/17/2022 12:15 PM MAINFRAME CONSULTANT) C-REACTIVE PROTEIN 0.40 <0.9 mg/dL 01/17/2022 3:39 PM MAINFRAME CONSULTANT [facility] 01/17/2022 12:1 5 PM MAINFRAME CONSULTANT Abiodun Segura II, MD LABORATORY Final R esult Performing Organization Address City/[facility]/ZIP Co de Phone Number [facility] [address] [place] [address], [place] [phone] * CK (CPK) (01/17/2022 12:15 PM MAINFRAME CONSULTANT) CPK 88 26 - 192 U/L 01/17/2022 3:39 PM MAINFRAME CONSULTANT [facility] 01/17/2022 12:1 5 PM MAINFRAME CONSULTANT Abiodun Segura II, MD LABORATORY Final R esult Performing Organization Address [facility] Co de Phone Number [facility] [address] [place] [address], [place] [phone] documented in this encounter Visit Diagnoses 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[facility]HS/[facility]) Other specified disorder of skin Face, neck, and scalp except eye, blister, infected documented in this encounter Additional Health Concerns Assessment Noted Time PHQ-9 Depression Total Score: 0 03/08/19 9:30 AM MAINFRAME CONSULTANT documented as of this encounter Care Teams Production Support Developer Relationship Specialty Start Date End Date Abiodun Segura II, MD [address] [place] [phone] PCP - General FAMILY PRACTICE 03/09/21 documented as of this encounter
--- OUTSIDE RECORDS SUMMARY | 2024-03-03 01:24 | XMS_ITS | Encounter Summary ---
Author Organization [facility] Address [address] [place] [address]. [place] [address] [place] [address] Care Team Providers Care Screw Machine Operator Swiss Type Name Role Phone Colton SILVEIRA MD, Yasmin Rushing Primary Care Provider Reason for Visit * Reason Comments Back Pain Medical Problem Encounter Details Date Type Department Care Team (Late st Contact Info) Description 01/08/2022 5:52 PM DIRECTOR OF CARDIOLOGY - 01/08/2022 8:36 PM [facility] Emergency [facility] Emergency Room [place], [place] [phone] Lex Mancilla PA [address] [place], [place] [id number] Back Pain; Medical Problem (/) Discharge Disposition: [...] Coronavirus/COVID-19? No / Unsure 01/08/2022 5:16 PM DIRECTOR OF CARDIOLOGY documented as of this encounter Last Filed Vital Signs Vital Sign Reading Time Taken Comments Blood Pressure 113/76 01/08/2022 6:39 PM DIRECTOR OF CARDIOLOGY Pulse 101 01/08/2022 6:39 PM DIRECTOR OF CARDIOLOGY Temperature 37.4 ??C (99.3 ??F) 01/08/2022 5:27 PM CS T Respiratory Rate 18 01/08/2022 5:27 PM DIRECTOR OF CARDIOLOGY Oxygen Saturation 100% 01/08/2022 6:39 PM DIRECTOR OF CARDIOLOGY Inhaled Oxygen Concentration - - Weight 83.5 kg (184 lb) 01/08/2022 5:27 PM DIRECTOR OF CARDIOLOGY Height 167.6 cm (5' 6 ) 01/08/2022 5:27 PM DIRECTOR OF CARDIOLOGY Body Mass Index 29.7 01/08/2022 5:27 PM DIRECTOR OF CARDIOLOGY documented in this encounter Functional Status * [...] Instructions* CYNTHIA Garsia - 01/08/2022 8:15 PM DIRECTOR OF CARDIOLOGY Take tylenol for pain. Or you can take ultram as needed; do not drink alcohol or drive while using this medicine. Follow up at 830am (arrive at 8am) for ultrasound appointment. Drink plenty of fluids. You can also try something like theraflu. CTOR OF CARDIOLOGY * Attachments The following attachments cannot be sent through Care Everywhere. * Viral Syndrome Discharge Instructions (S[place]) documented in this encounter Medications at Time [...] Patient verbalized understanding of the discharge instructions. CTOR OF CARDIOLOGY * CYNTHIA Garsia - 01/08/2022 6:29 PM CST [place], [place] EMERGENCY DEPARTMENT ENCOUNTER HISTORICAL INFORMATION Primary Care Doctor: YASMIN SEGURA MD Patient information was obtained primarily from the patient, nursing notes History/Exam limitations: None Provider at Bedside Date/Time Event User Comments 01/08/22 4081 Provider at Bedside Assessing Patient ANABELA GAY [...] COLOR (U) LIGHT YELLOW TRANSPARENCY CLEAR Specific [place] (U) 1.016 1.001 - 1.030 U PH [...] CDC UNKNOWN HOSPITALIZATION STATUS UNKNOWN RESIDENT OF [facility] NO UNKNOWN RADIOLOGY XR CHEST PORTABLE Final Result by User, [id number] (01/08 1807) Examination: Chest 1 view portable [...] and validated. 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 to the exit senior technical writer discharge instructions for details surrounding the discharge plan. I did reiterate with the patient that if an urgent need for immediate follow up comes up, not to hesitate to return to the ED. CYNTHIA Garsia PA 01/08/222006 Cosigned by Americo Elder MD,PHD at 01/10/2022 11:45 PM DIRECTOR OF CARDIOLOGY CTOR OF CARDIOLOGY CTOR OF CARDIOLOGY * Anabela Gay APRN - 01/08/2022 5:31 PM CST [place], [place] EMERGENCY DEPARTMENT ENCOUNTER Medical Screening Examination [...] APRN, dictated portions of this note using [employer] speech recognition software. Occasional wrong word or sound-alike substitutions may have occurred due to the inherent limitations of voice recognition software. Please read carefully and recognize, using context, where the substitutions may have occurred. Anabela Gay APRN 01/08/22 173 Cosigned by Sanchez Vasquez MD at 01/08/2022 6:05 PM DIRECTOR OF CARDIOLOGY CTOR OF CARDIOLOGY CTOR OF CARDIOLOGY * Rich [place] RN - 01/08/2022 5:26 PM CST Pt here with back pain, chills, dizzy x 2 days. States she has a picc line in her right arm that is blocked up for right foot infection. CTOR OF CARDIOLOGY documented in this encounter Plan of Treatment Upcoming Encounters Date Type Department Care Team (Late st Contact Info) Description 03/14/2024 11:45 AM DIRECTOR OF CARDIOLOGY Office Visit [facility] [phone] Marvin Mckeon MD [facility] [address] [place] [phone] 03/20/2024 11:30 AM DIRECTOR OF CARDIOLOGY Office Visit [facility] Family Medicine - [place] [address] [place] [phone] Yasmin Segura II, MD [address] [place], [place] [phone] documented as of this encounter Procedures Procedure Name Priority Date/Time Associated Diagnosis Comments PROTHROMBIN TIME, VENOUS STAT 01/08/2022 6:45 PM DIRECTOR OF CARDIOLOGY COMPREHENSIVE METABOLIC PANEL STAT 01/08/2022 6:45 PM DIRECTOR OF CARDIOLOGY LACTIC ACID TIMED 01/08/2022 6:45 PM DIRECTOR OF CARDIOLOGY D-DIMER, QUANTITATIVE STAT 01/08/2022 6:45 PM DIRECTOR OF CARDIOLOGY CULTURE, BACTERIA, BLOOD STAT 01/08/2022 6:45 PM DIRECTOR OF CARDIOLOGY CULTURE, BACTERIA, BLOOD STAT 01/08/2022 6:45 PM DIRECTOR OF CARDIOLOGY CBC W/DIFF AUTOMATED STAT 01/08/2022 6:45 PM DIRECTOR OF CARDIOLOGY TROPONIN, QUANT STAT 01/08/2022 6:45 PM DIRECTOR OF CARDIOLOGY CORONAVIRUS (COVID-19) INFLUENZA A & B ANTIGEN IA PANEL STAT 01/08/2022 6:32 PM DIRECTOR OF CARDIOLOGY URINALYSIS WI REFLEX TO CULTURE STAT 01/08/2022 6:32 PM DIRECTOR OF CARDIOLOGY ECG 12-LEAD Routine 01/08/2022 6:02 PM DIRECTOR OF CARDIOLOGY XR CHEST PORTABLE STAT 01/08/2022 5:5 6 PM DIRECTOR OF CARDIOLOGY documented in this encounter Results * TROPONIN, QUANT (01/08/2022 6:45 PM DIRECTOR OF CARDIOLOGY) [facility] TROPONIN I HIGH SENSITIVITY 6 <54 ng/L 01/08/2022 7:22 PM DIRECTOR OF CARDIOLOGY [facility] Comment: HIGH DOSES OF BIOTIN, TROPONIN-SPECIFIC AUTOANTIBODIES, AND ANTIBODY THERAPY CONTAINING HAMA MAY INTERFERE WITH THIS TEST RESULT. CORRELATION TO CLINICAL HISTORY AND PRESENTATION RECOMMENDED. 01/08/2022 6:45 PM DIRECTOR OF CARDIOLOGY us Anabela Gay APRN LABORATORY Final Result [facility] [address] [place] [address], [place] [phone] * CULTURE, BACTERIA, BLOOD (01/08/2022 6:45 PM DIRECTOR OF CARDIOLOGY) SPEC DESCRIPTION BLOOD 01/08/2022 5:34 PM DIRECTOR OF CARDIOLOGY [facility] SPECIAL REQUESTS NO SPECIAL REQUEST 01/08/2022 5:34 PM DIRECTOR OF CARDIOLOGY [facility] CULTURE RESULT NO GROWTH 5 DAYS 01/13/2022 12:52 PM DIRECTOR OF CARDIOLOGY [facility] BLOOD SPECIMEN OBTAINED FOR BLOOD CULTURE / Unknown 01/08/2022 6:45 PM DIRECTOR OF CARDIOLOGY 01/08/2022 6:51 PM DIRECTOR OF CARDIOLOGY us Anabela A [place] DRY BOX TENDER MICROBIOLOGY - GENERAL ORDERA BLES Final Result Performing Organization Address City/[facility]/ZIP Co de Phone Number [facility] [address] [place] [address], [place] [phone] * CULTURE, BACTERIA, BLOOD (01/08/2022 6:45 PM DIRECTOR OF CARDIOLOGY) [facility] SPEC DESCRIPTION BLOOD 01/08/2022 5:34 PM DIRECTOR OF CARDIOLOGY [facility] SPECIAL REQUESTS NO SPECIAL REQUEST 01/08/2022 5:34 PM DIRECTOR OF CARDIOLOGY [facility] CULTURE RESULT NO GROWTH 5 DAYS 01/13/2022 12:52 PM DIRECTOR OF CARDIOLOGY [facility] BLOOD SPECIMEN OBTAINED FOR BLOOD CULTURE / Unknown 01/08/2022 6:45 PM DIRECTOR OF CARDIOLOGY 01/08/2022 6:51 PM DIRECTOR OF CARDIOLOGY us Anabela A [place] DRY BOX TENDER MICROBIOLOGY - GENERAL ORDERA BLES Final Result [facility] [address] [place] [address], [place] [phone] * LACTIC ACID (01/08/2022 6:45 PM DIRECTOR OF CARDIOLOGY) [facility] LACTIC ACID VENOUS 0.9 0.4 - 2.0 MMOL/L 01/08/2022 7:29 PM DIRECTOR OF CARDIOLOGY [facility] 01/08/2022 6:45 PM DIRECTOR OF CARDIOLOGY Anabela Gay DRY BOX TENDER LABORATORY Final Result Performing Organization Address [facility] de Phone Number [facility] [address] [place] [address], * (ABNORMAL) PROTIME/INR, VENOUS (01/08/2022 6:45 PM DIRECTOR OF CARDIOLOGY) PROTIME 14.2(H) 10.2 - 12.9 SEC 01/08/2022 7:30 PM DIRECTOR OF CARDIOLOGY [facility] INR 1.2 01/08/2022 7:30 PM DIRECTOR OF CARDIOLOGY [facility] Comment: Recommended INR Therapeutic Goals: ??2.0-3.0 Routine Therapy ??2.5-3.5 Mechanical Prosthetic Valves (High Risk) 01/08/2022 6:45 PM DIRECTOR OF CARDIOLOGY Anabela Gay APRN LABORATORY Final Result Performing Organization Address [facility] de Phone Number [facility] [address] [place] [address], * (ABNORMAL) D-DIMER, QUANTITATIVE (01/08/2022 6:45 PM DIRECTOR OF CARDIOLOGY) D-DIMER 1,291(HH) 0 - 500 ng{FEU}/mL 01/08/2022 7:30 PM DIRECTOR OF CARDIOLOGY [facility] Comment: D-Dimer values less than or [...] called 01/08/2022 07:31 PM to EMERGENCY ROOM ([id number]/MEERA RIDDLE) by [id number]. Read Back: Yes 01/08/2022 6:45 PM DIRECTOR OF CARDIOLOGY Anabela Gay DRY BOX TENDER LABORATORY Final Result [facility] [address] [place] [address], [place] [phone] * (ABNORMAL) COMPREHENSIVE METABOLIC PANEL (01/08/2022 6:45 PM DIRECTOR OF CARDIOLOGY) GLUCOSE 180(H) 70 - 99 MG/DL 01/08/2022 7:22 PM [facility] BUN 22(H) 7 - 18 MG/DL 01/08/2022 7:22 PM [facility] CREATININE S/P/B 1.18(H) 0.55 - 1.02 MG/DL 01/08/2022 7:22 PM [facility] SODIUM S/P/B 134(L) 136 - 145 MMOL/L 01/08/2022 7:22 PM [facility] POTASSIUM S/P/B 3.8 3.5 - 5.1 MMOL/L 01/08/2022 7:22 PM [facility] CHLORIDE S/P/B 105 100 - 108 MMOL/L 01/08/2022 7:22 PM [facility] CO2 23.2 21 - 32 MMOL/L 01/08/2022 7:22 PM [facility] CALCIUM S/P/B 9.5 8.5 - 10.1 MG/DL 01/08/2022 7:22 PM [facility] BILIRUBIN TOTAL S/P/B 0.3 0.2 - 1.2 MG/DL 01/08/2022 7:22 PM [facility] Comment: THIS ASSAY IS NOT RECOMMENDED FOR PATIENTS UNDERGOING TREATMENT WITH ELTROMBOPAG DUE TO THE POTENTIAL FOR FALSELY ELEVATED RESULTS. TOTAL PROTEIN S/P/B 8.8(H) 6.4 - 8.2 G/DL 01/08/2022 7:22 PM [facility] ALBUMIN S/P/B 3.3(L) 3.4 - 5.0 G/DL 01/08/2022 7:22 PM [facility] AST 33 15 - 37 U/L 01/08/2022 7:22 PM [facility] ALT 50 14 - 55 U/L 01/08/2022 7:22 PM [facility] ALKALINE PHOSPHATASE S/P/B 215(H) 50 - 136 U/L 01/08/2022 7:22 PM [facility] ANION GAP 5.8 5 - 15 MMOL/L 01/08/2022 7:22 PM [facility] BUN CREATININE RATIO 18.6 6 - 26 01/08/2022 7:22 PM [facility] A/G RATIO 0.6(L) 1.0 - 2.0 RATIO 01/08/2022 7:22 PM [facility] GFR ESTIMATE 56(L) >90 ML/MIN/1.7 3 M2 01/08/2022 7:22 PM [facility] Comment: NOTE: eGFR is not calculated for patients <18 years of age. This is an estimated GFR calculation using the new CKD EPI creatinine equation without race and so does not require a correction factor for race. This estimated GFR should not be used for calculating drug doses. 01/08/2022 6:45 PM DIRECTOR OF CARDIOLOGY Anabela Gay DRY BOX TENDER LABORATORY Final Result [facility] [address] [place] [address], * (ABNORMAL) CBC W/DIFF AUTOMATED (01/08/2022 6:45 PM DIRECTOR OF CARDIOLOGY) [facility] Signature WBC 7.6 4.5 - 11.0 x10'3/uL 01/08/2022 6:58 PM DIRECTOR OF CARDIOLOGY [facility] RBC 3.86(L) 4.20 - 5.40 x10'6/uL 01/08/2022 6:58 PM DIRECTOR OF CARDIOLOGY [facility] HGB 11.6(L) 12.0 - 16.0 G/DL 01/08/2022 6:58 PM DIRECTOR OF CARDIOLOGY [facility] HCT 34.7(L) 38.0 - 48.0 % 01/08/2022 6:58 PM DIRECTOR OF CARDIOLOGY [facility] MCV 89.9 81.0 - 99.0 FL 01/08/2022 6:58 PM DIRECTOR OF CARDIOLOGY [facility] MCH 30.1 27.0 - 31.0 PG 01/08/2022 6:58 PM DIRECTOR OF CARDIOLOGY [facility] MCHC 33.4 32.0 - 36.0 G/DL 01/08/2022 6:58 PM DIRECTOR OF CARDIOLOGY [facility] RDW 13.3 11.5 - 14.5 % 01/08/2022 6:58 PM DIRECTOR OF CARDIOLOGY [facility] PLT 222 130 - 400 x10'3/uL 01/08/2022 6:58 PM DIRECTOR OF CARDIOLOGY [facility] MPV 11.3 9.3 - 12.2 FL 01/08/2022 6:58 PM DIRECTOR OF CARDIOLOGY [facility] DIFFERENTIAL TYPE AUTOMATED DIFFERENTIAL 01/08/2022 6:58 PM DIRECTOR OF CARDIOLOGY [facility] NEUTROPHILS % 69.3 % 01/08/2022 6:58 PM DIRECTOR OF CARDIOLOGY [facility] LYMPHOCYTES % 16.9 % 01/08/2022 6:58 PM DIRECTOR OF CARDIOLOGY [facility] MONOCYTES % 9.6 % 01/08/2022 6:58 PM DIRECTOR OF CARDIOLOGY [facility] EOSINOPHILS 3.0 % 01/08/2022 6:58 PM DIRECTOR OF CARDIOLOGY [facility] BASOPHILS 0.9 % 01/08/2022 6:58 PM DIRECTOR OF CARDIOLOGY [facility] IMMATURE GRANS % 0.3 % 01/09/20 6:58 PM DIRECTOR OF CARDIOLOGY [facility] ABS. NEUTROPHILS TOTAL 5.25 1.80 - 7.70 x10'3/uL 01/08/2022 6:58 PM DIRECTOR OF CARDIOLOGY [facility] ABS. LYMPHOCYTES 1.28 1.00 - 4.80 x10'3/uL 01/08/2022 6:58 PM DIRECTOR OF CARDIOLOGY [facility] ABS. MONOCYTES 0.73 0.24 - 0.86 x10'3/uL 01/08/2022 6:58 PM DIRECTOR OF CARDIOLOGY [facility] ABS. EOSINOPHILS 0.23 0.04 - 0.36 x10'3/uL 01/08/2022 6:58 PM DIRECTOR OF CARDIOLOGY [facility] ABS. BASOPHILS 0.07 0.01 - 0.08 x10'3/uL 01/08/2022 6:58 PM DIRECTOR OF CARDIOLOGY [facility] ABS. IMMATURE GRANULOCYTES 0.02 0.00 - 0.49 x10'3/uL 01/08/2022 6:58 PM DIRECTOR OF CARDIOLOGY [facility] 01/08/2022 6:45 PM DIRECTOR OF CARDIOLOGY us Anabela Gay DRY BOX TENDER LABORATORY Final Result [facility] [address] [place] [address], [place] [phone] * (ABNORMAL) URINALYSIS WI REFLEX TO CULTURE (01/08/2022 6:32 PM DIRECTOR OF CARDIOLOGY) SPECIMEN TYPE URINE CLEAN CATCH 01/08/2022 6:32 PM DIRECTOR OF CARDIOLOGY [facility] COLOR (U) LIGHT YELLOW 01/08/2022 6:49 PM [facility] TRANSPARENCY CLEAR 01/08/2022 6:49 PM [facility] SPECIFIC GRAVITY (U) 1.016 1.001 - 1.030 01/08/2022 6:49 PM DIRECTOR OF CARDIOLOGY [facility] U PH 5.5 5.0 - 9.0 01/08/2022 6:49 PM [facility] LEUKOCYTES (U) NEGATIVE NEGATIVE 01/08/2022 6:49 PM [facility] NITRITES NEGATIVE NEGATIVE 01/08/2022 6:49 PM [facility] PROTEIN (U) 100(H) <30 MG/DL 01/08/2022 6:49 PM [facility] URINE GLUCOSE NORMAL NORMAL MG/DL 01/08/2022 6:49 PM [facility] KETONES MG/DL (U) TRACE(A) NEGATIVE MG/DL 01/08/2022 6:49 PM [facility] UROBILINOGEN NORMAL NORMAL MG/DL 01/08/2022 6:49 PM [facility] BILIRUBIN (U) NEGATIVE NEGATIVE MG/DL 01/08/2022 6:49 PM [facility] BLOOD (U) 1+(A) NEGATIVE 01/08/2022 6:49 PM [facility] CULTURE & SENSITIVITY INDICATED? CULTURE IS NOT INDICATED 01/08/2022 6:49 PM DIRECTOR OF CARDIOLOGY [facility] WBC/HPF 1 <6 /HPF 01/08/2022 6:49 PM DIRECTOR OF CARDIOLOGY [facility] RBC/HPF 4 <6 /HPF 01/08/2022 6:49 PM DIRECTOR OF CARDIOLOGY [facility] SQUAMOUS EPITHELIALS MODERATE /HPF 01/08/2022 6:49 PM DIRECTOR OF CARDIOLOGY [facility] URINE SPECIMEN OBTAINED BY CLEAN CATCH PROCEDURE / Unknown 01/08/2022 6:32 PM DIRECTOR OF CARDIOLOGY us Lex MARIE URINE ORDERABLES Final Res ult [facility] [address] [place] [address], [place] [phone] * CORONAVIRUS (COVID-19) INFLUENZA A & B ANTIGEN IA PANEL (01/08/2022 6:32 PM DIRECTOR OF CARDIOLOGY) CORONAVIRUS ANTIGEN IA NEGATIVE NEGATIVE 01/08/2022 6:50 PM DIRECTOR OF CARDIOLOGY [facility] Comment: NEGATIVE RESULTS SHOULD BE [...] INFLUENZA A NEGATIVE NEGATIVE 01/08/2022 6:50 PM DIRECTOR OF CARDIOLOGY [facility] INFLUENZA B NEGATIVE NEGATIVE 01/08/2022 6:50 PM DIRECTOR OF CARDIOLOGY [facility] Comment: Interpretation: Negative for Influenza A [...] order. SPECIMEN TYPE NASAL 01/08/2022 6:32 PM DIRECTOR OF CARDIOLOGY [facility] FIRST TEST UNKNOWN 01/08/2022 6:32 PM DIRECTOR OF CARDIOLOGY [facility] EMPLOYED IN HEALTHCARE NO 01/08/2022 6:32 PM DIRECTOR OF CARDIOLOGY [facility] SYMPTOMATIC DEFINED BY CDC UNKNOWN 01/08/2022 6:32 PM DIRECTOR OF CARDIOLOGY [facility] HOSPITALIZATION STATUS UNKNOWN 01/08/2022 6:32 PM DIRECTOR OF CARDIOLOGY [facility] RESIDENT OF [facility] NO 01/08/2022 6:32 PM DIRECTOR OF CARDIOLOGY [facility] UNKNOWN 01/08/2022 6:32 PM DIRECTOR OF CARDIOLOGY [facility] NASAL STRUCTURE / Unknown 01/08/2022 6:32 PM DIRECTOR OF CARDIOLOGY Anabela Chatmanyor DRY BOX TENDER MICROBIOLOGY - GENERAL ORDERA BLES Final Result [facility] [address] [place] [address], * ECG 12 lead (01/08/2022 6:02 PM DIRECTOR OF CARDIOLOGY) 01/08/2022 6:02 PM DIRECTOR OF CARDIOLOGY Narrative [facility] EBONI (ABENA) RAD - 01/08/2022 10:36 PM DIRECTOR OF CARDIOLOGY ?[facility] ? [address] [place] ? Test Date: ?2022-01-08 Pat Name: ? LENA YOUNGBLOOD ?Department: ?? 41 ? Room: ? 4 Gender: ? Female ? 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 KM : ?1970 ? Requested By: ANABELA GAY Order Number: [id number] ? Reading MD: ?? Crispin Gomez ? Measurements Intervals ?Wray ? Rate: ? 103 ?P: ?47 ND: ? 160 ?QRS: ?21 QRSD: ? 76 ? T: ?115 QT: ? 309 ? QTc: ?406 ? Interpretive Statements SINUS TACHYCARDIA NONSPECIFIC T-WAVE ABNORMALITY Compared to ECG 01/01/2022 22:59:42 Sinus tachycardia is present Ventricular premature complex(es) no longer present T-wave abnormality still present Other ischemic changes, not STEMI Lex Mancilla PA-C CTOR OF CARDIOLOGY Procedure Note Crispin Gomez MD - 01/08/[address] [facility] [address] Test Date: 2022-01-08 Pat Name: LENA YOUNGBLOOD Department: 41 Room: 4 Gender: Female Apprentice Embalmer: ADOLFO : 1970 Requested By: ANABELA GAY Order Number: [id number] Reading MD: Crispin Gomez Measurements Intervals Wray Rate: 103 P: 47 ND: 160 QRS: 21 QRSD: 76 T: 115 QT: 309 QTc: 406 Interpretive Statements SINUS TACHYCARDIA NONSPECIFIC T-WAVE ABNORMALITY Compared to ECG 01/01/2022 22:59:42 Sinus tachycardia is present Ventricular premature complex(es) no longer present T-wave abnormality still present Other ischemic changes, not STEMI Lex Mancilla PA-C CTOR OF CARDIOLOGY us Anabela Gay DRY BOX TENDER ECG ORDERABLES Final Result [facility] RAD * XR CHEST PORTABLE (01/08/2022 5:56 PM DIRECTOR OF CARDIOLOGY) Anatomical Region Laterality Modality Chest Radiographic Shelli ging 01/08/2022 6:05 PM DIRECTOR OF CARDIOLOGY Impressions 01/08/2022 6:06 PM DIRECTOR OF CARDIOLOGY Impression: Stable chest. ??No acute findings. Referred By: ?? Interpreted By: Arley Gastelum MD, 01/08/2022 6:05 PM Narrative 01/08/2022 6:06 PM DIRECTOR OF CARDIOLOGY Examination: Chest 1 view portable History: Pain [...] posterolateral abdominal wall. Given 01/08/2022 8:30 PM DIRECTOR OF CARDIOLOGY 80 mg Left Upper Abdomen HYDROcodone-acetaminophen (NORCO) 5-325 MG tablet 1 tablet 1 tablet, Oral, Once, 1 dose, On 01/08/22 at 1815, Maximum dose of acetaminophen is 4000 mg from all sources in 24 hours. Given 01/08/2022 6:37 PM DIRECTOR OF CARDIOLOGY 1 tablet ondansetron (ZOFRAN) injection 4 mg 4 mg, Intravenous, Once, 1 dose, On 01/08/22 at 1745, IV push over 2-5 minutes. Given 01/08/2022 6:34 PM DIRECTOR OF CARDIOLOGY 4 mg sodium chloride 0.9% bolus infusion 500 mL 500 mL, Intravenous, Administer over 60 Minutes, Once, 1 dose, On 01/08/22 at 1745 New Bag 01/08/2022 6:33 PM DIRECTOR OF CARDIOLOGY 500 mLs documented in this encounter Active and Recently Administered Medications Times are shown in DIRECTOR OF CARDIOLOGY. Scheduled Medication Order 01/06/2022 01/07/2022 01/08/2022 enoxaparin [...] Rule Out 01/08/2022 01/08/2022 01/08/2022 6:50 PM DIRECTOR OF CARDIOLOGY Assessment Noted Time PHQ-9 Depression Total Score: 0 03/08/19 9:30 AM DIRECTOR OF CARDIOLOGY documented as of this encounter Care Teams Screw Machine Operator Swiss Type Relationship Specialty Start Date End Date Yasmin Segura II, MD [address] [place] [address] PCP - General FAMILY PRACTICE 03/09/21 documented as of this encounter
--- OUTSIDE RECORDS SUMMARY | 2024-03-03 01:24 | XMS_ITS | Encounter Summary ---
Author Organization [facility] Address [address] [place] [address]. [place] [address] [place] [address] Care Team Providers Care Stockroom Selector Name Role Phone Colton SILVEIRA MD, Abiodun Rushing Primary Care Provider Reason for Visit * Reason Onset Date Comments Information 01/02/2022 Encounter Details Date Type Department Care Team (Late st Contact Info) Description 01/02/2022 Telephone [facility] Family Medicine [place] [address] [place] [address] Abiodun Segura II, MD [address] [place] [address] Information Social History Tobacco Use [...] Coronavirus/COVID-19? No / Unsure 01/01/2022 7:00 PM DIRECTOR RECORDS MANAGEMENT documented as of this encounter Functional Status [...] CST Please advise or speak with patient CTOR RECORDS MANAGEMENT * Debra Cruz - 01/02/2022 10:12 AM CST Patient is calling because she has a pick line in left arm and its been bothering her. Hospital suggested that it could be a blood clog from right arm. X-rays are everything was done at [facility]. Patient says she has been nausea, and feeling dizziness and weakness. Wants to know if can give her a call rosita. Patient is at [facility] for ultrasound. Patient requested a message to be left if not answered. Patient also wants to know if there is any medications she can be giving for pick line. CTOR RECORDS MANAGEMENT documented in this encounter Plan of Treatment Upcoming Encounters Date Type Department Care Team (Late st Contact Info) Description 03/14/2024 11:45 AM DIRECTOR RECORDS MANAGEMENT Office Visit [facility] [phone] Marvin Mckeon MD [address] [facility] [address] [place] [address] 03/20/2024 11:30 AM DIRECTOR RECORDS MANAGEMENT Office Visit [facility] Family Medicine - [place] [address] [place] [phone] Abiodun Segura II, MD [address] [place] [address] documented as of this encounter Visit Diagnoses Not on filedocumented in this encounter Additional Health Concerns Assessment Noted Time PHQ-9 Depression Total Score: 0 03/08/19 9:30 AM DIRECTOR RECORDS MANAGEMENT documented as of this encounter Care Teams Stockroom Selector Relationship Specialty Start Date End Date Abiodun Segura II, MD [address] [place] [address] PCP - General FAMILY PRACTICE 03/09/21 documented as of this encounter
--- OUTSIDE RECORDS SUMMARY | 2024-03-03 01:24 | XMS_ITS | Encounter Summary ---
Author Organization [facility] Address [address] [place] [address]. [place], [place] [id number] [place] [address] Care Team Providers Care Training Project Manager Name Role Phone Colton SILVEIRA MD, Abiodun Rushing Primary Care Provider Encounter Details Date Type Department Care Team (Late st Contact Info) Description 12/27/2021 Plan of Care Documentation [address] [place] [address] Social History Tobacco Use Types [...] st Contact Info) Description 03/14/2024 11:45 AM FLOOR ATTENDANT Office Visit [facility] [phone] Marvin Mckeon MD [facility] [address] [place] [address] 03/20/2024 11:30 AM FLOOR ATTENDANT Office Visit [facility] Family [facility] - [place] 100 [place] [phone] Abiodun Segura II, MD [address] [place] [address] documented as of this encounter Visit Diagnoses Not on filedocumented in this encounter Additional Health Concerns Assessment Noted Time PHQ-9 Depression Total Score: 0 03/08/19 9:30 AM FLOOR ATTENDANT documented as of this encounter Care Teams Training Project Manager Relationship Specialty Start Date End Date Abiodun Segura II, MD 100 [place] [address] PCP - General FAMILY PRACTICE 03/09/21 documented as of this encounter
--- OUTSIDE RECORDS SUMMARY | 2024-03-03 01:24 | XMS_ITS | Encounter Summary ---
Author Organization [facility] Address [address] [place] [address]. [place] [address] [place] [address] Care Team Providers Care Ring Barker Operator Name Role Phone Colton SILVEIRA MD, Abiodun Rushing Primary Care Provider Victoriano Langston MD Unavailable [phone] Encounter Details Date Type Department Care Team (Late st Contact Info) Description 01/09/2022 Therapy Plan [facility] [place] [address] Abiodun Segura II, MD [address] [place] [address] Social History Tobacco Use Types Packs/Day [...] Coronavirus/COVID-19? No / Unsure 01/10/2022 11:53 AM ENGAGEMENT DIRECTOR documented as of this encounter Functional [...] st Contact Info) Description 03/14/2024 11:45 AM ENGAGEMENT DIRECTOR Office Visit [facility] [phone] Marvin Mckeon MD Three [facility] [address] [place], [place] [phone] 03/20/2024 11:30 AM ENGAGEMENT DIRECTOR Office Visit [facility] Family Medicine - [place] 100 [place] [address] Abiodun Segura II, MD [address] [place] [address] documented as of this encounter Visit Diagnoses Diagnosis Osteomyelitis ([facility])- Primary Unspecified osteomyelitis, site unspecified documented in this encounter Additional Health Concerns Assessment Noted Time PHQ-9 Depression Total Score: 0 03/08/19 22 9:30 AM ENGAGEMENT DIRECTOR documented as of this encounter Care Teams Ring Barker Operator Relationship Specialty Start Date End Date Abiodun Segura II, MD 100 [place] [address] PCP - General FAMILY PRACTICE 03/09/21 [place] [address] [place] [address] PODIATRY/SURGERY 05/05/22 documented as of this encounter
--- OUTSIDE RECORDS SUMMARY | 2024-03-03 01:24 | XMS_ITS | Encounter Summary ---
Author Organization [facility] Address [address] [place] [address]. [place] [address] [place] [address] Care Team Providers Care Field Control Inspector Name Role Phone Colton SILVEIRA MD, Abiodun Rushing Primary Care Provider Encounter Details Date Type Department Care Team (Late st Contact Info) Description 01/10/2022 Orders Only [facility] [address] [place], [place] [phone] Abiodun Segura II, MD [address] [place] [address] Social History Tobacco Use Types Packs/Day [...] Coronavirus/COVID-19? No / Unsure 01/10/2022 11:53 AM LICENSED INVESTMENT SALES ASSISTANT documented as of this encounter Functional [...] Contact Info) Description 03/14/2024 11:45 AM LICENSED INVESTMENT SALES ASSISTANT Office Visit [facility] [phone] Marvin Mckeon MD [facility] [address] [place] [address] 03/20/2024 11:30 AM LICENSED INVESTMENT SALES ASSISTANT Office Visit [facility] Family Medicine - [place] 100 [place] [phone] Abiodun Segura II, MD [address] [place] [address] documented as of this encounter Results * CK (CPK) (01/10/2022 10:45 AM LICENSED INVESTMENT SALES ASSISTANT) CPK 114 26 - 192 U/L 01/10/2022 2:02 PM LICENSED INVESTMENT SALES ASSISTANT [facility] 01/10/2022 10:4 5 AM LICENSED INVESTMENT SALES ASSISTANT Abiodun Segura II, MD LABORATORY Final R esult Performing Organization Address [facility]/ZIP Co de Phone Number [facility] [address] [place] [address], [place] [phone] * (ABNORMAL) C-REACTIVE PROTEIN (01/10/2022 10:45 AM LICENSED INVESTMENT SALES ASSISTANT) C-REACTIVE PROTEIN 3.60(H) <0.9 mg/dL 01/10/2022 2:02 PM LICENSED INVESTMENT SALES ASSISTANT [facility] 01/10/2022 10:4 5 AM LICENSED INVESTMENT SALES ASSISTANT Abiodun Segura II, MD LABORATORY [facility] Performing Organization Address City/[facility]/ZIP Co de Phone Number [facility] [address] [place] [address], [place] [phone] * (ABNORMAL) CBC W/DIFF AUTOMATED (01/10/2022 10:45 AM LICENSED INVESTMENT SALES ASSISTANT) WBC 4.6 4.4 - 11.0 x10'3/uL 01/10/2022 1:49 PM LICENSED INVESTMENT SALES ASSISTANT [facility] RBC 4.01(L) 4.50 - 5.10 x10'6/uL 01/10/2022 1:49 PM LICENSED INVESTMENT SALES ASSISTANT [facility] HGB 11.9(L) 12.3 - 15.3 G/DL 01/10/2022 1:49 PM LICENSED INVESTMENT SALES ASSISTANT [facility] HCT 35.5(L) 35.9 - 44.6 % 01/10/2022 1:49 PM [facility] MCV 88.5 80.0 - 96.0 FL 01/10/2022 1:49 PM [facility] MCH 29.7 25.3 - 30.9 PG 01/10/2022 1:49 PM [facility] MCHC 33.5 31.0 - 34.1 G/DL 01/10/2022 1:49 PM [facility] RDW 13.4 12.4 - 15.1 % 01/10/2022 1:49 PM [facility] PLT 182 151 - 353 x10'3/uL 01/10/2022 1:49 PM [facility] MPV 12.5(H) 9.6 - 12.0 FL 01/10/2022 1:49 PM [facility] NEUTROPHILS % 50.6 42.1 - 71.9 % 01/10/2022 2:10 PM [facility] LYMPHOCYTES % 33.4 15.8 - 45.0 % 01/10/2022 2:10 PM [facility] BASOPHILS 1.1 0.0 - 1.3 % 01/10/2022 2:10 PM [facility] EOSINOPHILS 5.4 0.0 - 5.6 % 01/10/2022 2:10 PM [facility] MONOCYTES % 9.5 5.7 - 12.5 % 01/10/2022 2:10 PM [facility] IMMATURE GRANS % 0.0 0.0 - 0.5 % 01/10/2022 2:10 PM [facility] ABS. NEUTROPHILS 2.33 1.40 - 6.00 x10'3/uL 01/10/2022 2:10 PM [facility] ABS. LYMPHOCYTES 1.54 0.80 - 4.70 x10'3/uL 01/10/2022 2:10 PM [facility] PLT MORPH. PLATELET COUNT MAY BE ARTIFACTUALLY LOW DUE TO PLATELET CLUMPING 01/10/2022 2:10 PM [facility] RBC MORPHOLOGY NORMAL 01/10/2022 2:10 PM [facility] WBC MORPHOLOGY NORMAL 01/10/2022 2:10 PM [facility] 01/10/2022 10:4 5 AM LICENSED INVESTMENT SALES ASSISTANT us Abiodun Segura II, MD LABORATORY Edited Result - Final [facility] [address] [place] [address], [place] [phone] * (ABNORMAL) COMPREHENSIVE METABOLIC PANEL (01/10/2022 10:45 AM LICENSED INVESTMENT SALES ASSISTANT) GLUCOSE 106(H) 70 - 99 MG/DL 01/10/2022 2:02 PM [facility] BUN 21(H) 7 - 18 MG/DL 01/10/2022 2:02 PM [facility] CREATININE S/P/B 1.08(H) 0.55 - 1.02 MG/DL 01/10/2022 2:02 PM [facility] SODIUM S/P/B 140 136 - 145 MMOL/L 01/10/2022 2:02 PM [facility] POTASSIUM S/P/B 3.9 3.5 - 5.1 MMOL/L 01/10/2022 2:02 PM [facility] CHLORIDE S/P/B 103 100 - 108 MMOL/L 01/10/2022 2:02 PM [facility] CO2 21.7 21 - 32 MMOL/L 01/10/2022 2:02 PM [facility] CALCIUM S/P/B 9.3 8.5 - 10.1 MG/DL 01/10/2022 2:02 PM [facility] BILIRUBIN TOTAL S/P/B 0.3 0.2 - 1.2 MG/DL 01/10/2022 2:02 PM [facility] TOTAL PROTEIN S/P/B 9.4(H) 6.4 - 8.2 G/DL 01/10/2022 2:02 PM [facility] ALBUMIN S/P/B 3.5 3.4 - 5.0 G/DL 01/10/2022 2:02 PM [facility] AST 46(H) 15 - 37 U/L 01/10/2022 2:02 PM [facility] ALT 52 14 - 55 U/L 01/10/2022 2:02 PM [facility] ALKALINE PHOSPHATASE S/P/B 217(H) 50 - 136 U/L 01/10/2022 2:02 PM [facility] ANION GAP 15.3(H) 5 - 15 MMOL/L 01/10/2022 2:02 PM [facility] BUN CREATININE RATIO 19.4 6 - 26 01/10/2022 2:02 PM [facility] A/G RATIO 0.6(L) 1.0 - 2.0 RATIO 01/10/2022 2:02 PM [facility] GFR ESTIMATE 63(L) >90 ML/MIN/1.7 3 M2 01/10/2022 2:02 PM [facility] Comment: NOTE: eGFR is not calculated for patients <18 years of age. This is an estimated GFR calculation using the new CKD EPI creatinine equation without race and so does not require a correction factor for race. This estimated GFR should not be used for calculating drug doses. 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
--- OUTSIDE RECORDS SUMMARY | 2024-03-03 01:24 | XMS_ITS | Encounter Summary ---
Author Organization [facility] Address [address] [place] [address]. [place] [address] [place] [address] Care Team Providers Care Circuit Breaker Supervisor Name Role Phone Colton SILVEIRA MD, Abiodun Rushing Primary Care Provider Reason for Visit * Reason Onset Date Comments Advise 12/26/2021 Encounter Details Date Type Department Care Team (Late st Contact Info) Description 12/26/2021 Telephone [facility] Home Care [address] [place] [address] [place] [address] Abiodun Segura II, MD 100 [place], [place] [phone] Advise Social History Tobacco Use Types Packs/Day [...] a home health referral for Lena from [facility] for a diabetic foot infection. Will Dr Segura follow for home health? Thank you Alma [facility] Home Care CHISE BROKER documented in this encounter Plan of Treatment Upcoming Encounters Date Type Department Care Team (Late st Contact Info) Description 03/14/2024 11:45 AM FRANCHISE BROKER Office Visit [facility] [phone] Marvin Mckeon MD Three [facility] [address] [place] [address] 03/20/2024 11:30 AM FRANCHISE BROKER Office Visit [facility] Family Medicine - [place] 100 [place] [phone] Abiodun Segura II, MD [address] [place], [place] [phone] documented as of this encounter Visit Diagnoses Not on filedocumented in this encounter Additional Health Concerns Assessment Noted Time PHQ-9 Depression Total Score: 0 03/08/19 9:30 AM FRANCHISE BROKER documented as of this encounter Care Teams Circuit Breaker Supervisor Relationship Specialty Start Date End Date Abiodun Segura II, MD [address] [place], [place] [phone] PCP - General FAMILY PRACTICE 03/09/21 documented as of this encounter
--- OUTSIDE RECORDS SUMMARY | 2024-03-03 01:24 | XMS_ITS | Encounter Summary ---
Author Organization [facility] Address [address] [place] [address]. [place] [address] [place] [address] Care Team Providers Care Change Number Operator Name Role Phone Colton SILVEIRA MD, Abiodun Rushing Primary Care Provider Encounter Details Date Type Department Care Team (Late st Contact Info) Description 01/03/2022 Orders Only [facility] [address] [place], [place] [phone] Abiodun Segura II, MD [address] [place] [address] Social History Tobacco Use Types Packs/Day [...] Coronavirus/COVID-19? No / Unsure 01/08/2022 5:16 PM FOUNTAIN SERVER documented as of this encounter Functional Status [...] st Contact Info) Description 03/14/2024 11:45 AM FOUNTAIN SERVER Office Visit [facility] [phone] Marvin Mckeon MD [facility] [address] [place] [address] 03/20/2024 11:30 AM FOUNTAIN SERVER Office Visit [facility] Family Medicine - [place] 100 [place] [phone] Abiodun Segura II, MD [address] [place] [address] documented as of this encounter Results * CK (CPK) (01/03/2022 12:00 PM FOUNTAIN SERVER) CPK 110 26 - 192 U/L 01/03/2022 2:52 PM FOUNTAIN SERVER [facility] 01/03/2022 12:0 0 PM FOUNTAIN SERVER Abiodun Segura II, MD LABORATORY Final R esult Performing Organization Address [facility]/ZIP Co de Phone Number [facility] [address] [place] [address], [place] [phone] * (ABNORMAL) C-REACTIVE PROTEIN (01/03/2022 12:00 PM FOUNTAIN SERVER) Pathologist [facility] C-REACTIVE PROTEIN 2.10(H) <0.9 mg/dL 01/03/2022 2:52 PM FOUNTAIN SERVER [facility] 01/03/2022 12:0 0 PM FOUNTAIN SERVER Abiodun Segura II, MD LABORATORY Final R [facility] Performing Organization Address City/[facility]/ZIP Co de Phone Number [facility] [address] [place] [address], [place] [phone] * (ABNORMAL) CBC W/DIFF AUTOMATED (01/03/2022 12:00 PM FOUNTAIN SERVER) WBC 10.1 4.4 - 11.0 x10'3/uL 01/03/2022 2:33 PM FOUNTAIN SERVER [facility] RBC 3.82(L) 4.50 - 5.10 x10'6/uL 01/03/2022 2:33 PM FOUNTAIN SERVER [facility] HGB 11.5(L) 12.3 - 15.3 G/DL 01/03/2022 2:33 PM FOUNTAIN SERVER [facility] HCT 33.9(L) 35.9 - 44.6 % 01/03/2022 2:33 PM [facility] MCV 88.7 80.0 - 96.0 FL 01/03/2022 2:33 PM [facility] MCH 30.1 25.3 - 30.9 PG 01/03/2022 2:33 PM [facility] MCHC 33.9 31.0 - 34.1 G/DL 01/03/2022 2:33 PM [facility] RDW 13.2 12.4 - 15.1 % 01/03/2022 2:33 PM [facility] PLT 282 151 - 353 x10'3/uL 01/03/2022 2:33 PM [facility] MPV 11.7 9.6 - 12.0 FL 01/03/2022 2:33 PM [facility] RBC MORPHOLOGY NORMAL 01/03/2022 2:33 PM [facility] PLT MORPH. NORMAL 01/03/2022 2:33 PM [facility] WBC MORPHOLOGY NORMAL 01/03/2022 2:33 PM [facility] LYMPHOCYTES % 26.4 15.8 - 45.0 % 01/03/2022 2:33 PM [facility] NEUTROPHILS % 66.6 42.1 - 71.9 % 01/03/2022 2:33 PM [facility] MONOCYTES % 4.1(L) 5.7 - 12.5 % 01/03/2022 2:33 PM [facility] EOSINOPHILS 2.0 0.0 - 5.6 % 01/03/2022 2:33 PM [facility] BASOPHILS 0.7 0.0 - 1.3 % 01/03/2022 2:33 PM FOUNTAIN SERVER [facility] ABS. NEUTROPHILS 6.75(H) 1.40 - 6.00 x10'3/uL 01/03/2022 2:33 PM FOUNTAIN SERVER [facility] IMMATURE GRANS % 0.2 0.0 - 0.5 % 01/03/2022 2:33 PM FOUNTAIN SERVER [facility] ABS. LYMPHOCYTES 2.67 0.80 - 4.70 x10'3/uL 01/03/2022 2:33 PM [facility] 01/03/2022 12:0 0 PM FOUNTAIN SERVER Abiodun Segura II, MD LABORATORY Final R esult [facility] [address] [place] [address], [place] [phone] * (ABNORMAL) COMPREHENSIVE METABOLIC PANEL (01/03/2022 12:00 PM FOUNTAIN SERVER) GLUCOSE 299(H) 70 - 99 MG/DL 01/03/2022 2:52 PM [facility] BUN 27(H) 7 - 18 MG/DL 01/03/2022 2:52 PM [facility] CREATININE S/P/B 1.06(H) 0.55 - 1.02 MG/DL 01/03/2022 2:52 PM [facility] SODIUM S/P/B 136 136 - 145 MMOL/L 01/03/2022 2:52 PM [facility] POTASSIUM S/P/B 4.7 3.5 - 5.1 MMOL/L 01/03/2022 2:52 PM [facility] CHLORIDE S/P/B 102 100 - 108 MMOL/L 01/03/2022 2:52 PM [facility] CO2 25.0 21 - 32 MMOL/L 01/03/2022 2:52 PM [facility] CALCIUM S/P/B 9.5 8.5 - 10.1 MG/DL 01/03/2022 2:52 PM [facility] BILIRUBIN TOTAL S/P/B 0.5 0.2 - 1.2 MG/DL 01/03/2022 2:52 PM [facility] TOTAL PROTEIN S/P/B 8.8(H) 6.4 - 8.2 G/DL 01/03/2022 2:52 PM [facility] ALBUMIN S/P/B 3.4 3.4 - 5.0 G/DL 01/03/2022 2:52 PM [facility] AST 21 15 - 37 U/L 01/03/2022 2:52 PM [facility] ALT 41 14 - 55 U/L 01/03/2022 2:52 PM [facility] ALKALINE PHOSPHATASE S/P/B 166(H) 50 - 136 U/L 01/03/2022 2:52 PM [facility] ANION GAP 9.0 5 - 15 MMOL/L 01/03/2022 2:52 PM [facility] BUN CREATININE RATIO 25.5 6 - 26 01/03/2022 2:52 PM [facility] A/G RATIO 0.6(L) 1.0 - 2.0 RATIO 01/03/2022 2:52 PM [facility] GFR ESTIMATE 64(L) >90 ML/MIN/1.7 3 M2 01/03/2022 2:52 PM [facility] Comment: NOTE: eGFR is not calculated for patients <18 years of age. This is an estimated GFR calculation using the new CKD EPI creatinine equation without race and so does not require a correction factor for race. This estimated GFR should not be used for calculating drug doses. 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 Other specified disorder of skin Face, neck, and scalp except eye, blister, infected documented in this encounter Additional Health Concerns Infection Onset Date Last Indicated Resolved Time COVID-19 Rule Out 01/08/2022 01/08/2022 01/08/2022 6:50 PM FOUNTAIN SERVER Assessment Noted Time PHQ-9 Depression Total Score: 0 03/08/19 9:30 AM FOUNTAIN SERVER documented as of this encounter Care Teams Change Number Operator Relationship Specialty Start Date End Date Abiodun Segura II, MD [address] [place] [id number] PCP - General FAMILY PRACTICE 03/09/21 documented as of this encounter
--- OUTSIDE RECORDS SUMMARY | 2024-03-03 01:24 | XMS_ITS | Encounter Summary ---
Author Organization [facility] Address [address] [place] [address]. [place] [address] [place] [address] Care Team Providers Care Public Health Director Name Role Phone Colton SILVEIRA MD, Abiodun Rushing Primary Care Provider Encounter Details Date Type Department Care Team (Late st Contact Info) Description 01/03/2022 2:24 PM SEO ASSISTANT - 01/03/2022 11:[address] [facility] Hospital Encounter [facility] [address] [place], [place] [phone] Abiodun Segura II, MD [address] [place] [address] Discharge Disposition: Home or Self Care [...] Coronavirus/COVID-19? No / Unsure 01/01/2022 7:00 PM SEO ASSISTANT documented as of this encounter Functional [...] use of insulin ([facility]) Inject 3 mg [...] Contact Info) Description 03/14/2024 11:45 AM SEO ASSISTANT Office Visit [facility] [address] Marvin Mckeon MD Three [facility] [address] [place] [phone] 03/20/2024 11:30 AM SEO ASSISTANT Office Visit [facility] Medical Group Family Medicine [facility] 100 [place] [phone] Abiodun Segura II, MD 100 [place], [place] [phone] documented as of this encounter Procedures Procedure Name Priority Date/Time Associated Diagnosis Comments COMPREHENSIVE METABOLIC PANEL Routine 01/03/2022 12:00 PM SEO ASSISTANT Bullosis diabeticorum (CMS/HCC [facility]/HCC) Face, neck, and scalp except eye, blister, infected C-REACTIVE PROTEIN Routine 01/03/2022 12 :00 PM SEO ASSISTANT Bullosis diabeticorum (CMS/HCC [facility]/HCC) Face, neck, and scalp except eye, blister, infected CBC W/DIFF AUTOMATED Routine 01/03/2022 12:00 PM SEO ASSISTANT Bullosis diabeticorum (CMS/HCC [facility]/HCC) Face, neck, and scalp except eye, blister, infected CK (CPK) Routine 01/03/2022 12:00 PM SEO ASSISTANT Bullosis diabeticorum (CMS/HCC HHS/HCC) Face, neck, and scalp except eye, blister, infected documented in this encounter Results * (ABNORMAL) COMPREHENSIVE METABOLIC PANEL (01/03/2022 12:00 PM SEO ASSISTANT) Pathologist [facility] GLUCOSE 299(H) 70 - 99 MG/DL 01/03/2022 2:52 PM [facility] BUN 27(H) 7 - 18 MG/DL 01/03/2022 2:52 PM [facility] CREATININE S/P/B 1.06(H) 0.55 - 1.02 MG/DL 01/03/2022 2:52 PM [facility] SODIUM S/P/B 136 136 - 145 MMOL/L 01/03/2022 2:52 PM [facility] POTASSIUM S/P/B 4.7 3.5 - 5.1 MMOL/L 01/03/2022 2:52 PM [facility] CHLORIDE S/P/B 102 100 - 108 MMOL/L 01/03/2022 2:52 PM [facility] CO2 25.0 21 - 32 MMOL/L 01/03/2022 2:52 PM [facility] CALCIUM S/P/B 9.5 8.5 - 10.1 MG/DL 01/03/2022 2:52 PM [facility] BILIRUBIN TOTAL S/P/B 0.5 0.2 - 1.2 MG/DL 01/03/2022 2:52 PM [facility] TOTAL PROTEIN S/P/B 8.8(H) 6.4 - 8.2 G/DL 01/03/2022 2:52 PM [facility] ALBUMIN S/P/B 3.4 3.4 - 5.0 G/DL 01/03/2022 2:52 PM [facility] AST 21 15 - 37 U/L 01/03/2022 2:52 PM [facility] ALT 41 14 - 55 U/L 01/03/2022 2:52 PM [facility] ALKALINE PHOSPHATASE S/P/B 166(H) 50 - 136 U/L 01/03/2022 2:52 PM [facility] ANION GAP 9.0 5 - 15 MMOL/L 01/03/2022 2:52 PM [facility] BUN CREATININE RATIO 25.5 6 - 26 01/03/2022 2:52 PM [facility] A/G RATIO 0.6(L) 1.0 - 2.0 RATIO 01/03/2022 2:52 PM [facility] GFR ESTIMATE 64(L) >90 ML/MIN/1.7 3 M2 01/03/2022 2:52 PM [facility] Comment: NOTE: eGFR is not calculated for patients <18 years of age. This is an estimated GFR calculation using the new CKD EPI creatinine equation without race and so does not require a correction factor for race. This estimated GFR should not be used for calculating drug doses. 01/03/2022 12:0 0 PM SEO ASSISTANT Abiodun Segura II, MD LABORATORY Final R esult [facility] [address] [facility] [place] [address], [place] [phone] * (ABNORMAL) CBC W/DIFF AUTOMATED (01/03/2022 12:00 PM SEO ASSISTANT) [facility] WBC 10.1 4.4 - 11.0 x10'3/uL 01/03/2022 2:33 PM SEO ASSISTANT [facility] RBC 3.82(L) 4.50 - 5.10 x10'6/uL 01/03/2022 2:33 PM [facility] HGB 11.5(L) 12.3 - 15.3 G/DL 01/03/2022 2:33 PM [facility] HCT 33.9(L) 35.9 - 44.6 % 01/03/2022 2:33 PM [facility] MCV 88.7 80.0 - 96.0 FL 01/03/2022 2:33 PM [facility] MCH 30.1 25.3 - 30.9 PG 01/03/2022 2:33 PM [facility] MCHC 33.9 31.0 - 34.1 G/DL 01/03/2022 2:33 PM [facility] RDW 13.2 12.4 - 15.1 % 01/03/2022 2:33 PM [facility] PLT 282 151 - 353 x10'3/uL 01/03/2022 2:33 PM [facility] MPV 11.7 9.6 - 12.0 FL 01/03/2022 2:33 PM [facility] RBC MORPHOLOGY NORMAL 01/03/2022 2:33 PM [facility] PLT MORPH. NORMAL 01/03/2022 2:33 PM [facility] WBC MORPHOLOGY NORMAL 01/03/2022 2:33 PM SEO ASSISTANT [facility] LYMPHOCYTES % 26.4 15.8 - 45.0 % 01/03/2022 2:33 PM SEO ASSISTANT [facility] NEUTROPHILS % 66.6 42.1 - 71.9 % 01/03/2022 2:33 PM SEO ASSISTANT [facility] MONOCYTES % 4.1(L) 5.7 - 12.5 % 01/03/2022 2:33 PM SEO ASSISTANT [facility] EOSINOPHILS 2.0 0.0 - 5.6 % 01/03/2022 2:33 PM SEO ASSISTANT [facility] BASOPHILS 0.7 0.0 - 1.3 % 01/03/2022 2:33 PM SEO ASSISTANT [facility] ABS. NEUTROPHILS 6.75(H) 1.40 - 6.00 x10'3/uL 01/03/2022 2:33 PM SEO ASSISTANT [facility] IMMATURE GRANS % 0.2 0.0 - 0.5 % 01/03/2022 2:33 PM [facility] ABS. LYMPHOCYTES 2.67 0.80 - 4.70 x10'3/uL 01/03/2022 2:33 PM [facility] 01/03/2022 12:0 0 PM SEO ASSISTANT Abiodun Segura II, MD LABORATORY Final R esult [facility] [address] [place] [address], * (ABNORMAL) C-REACTIVE PROTEIN (01/03/2022 12:00 PM SEO ASSISTANT) C-REACTIVE PROTEIN 2.10(H) <0.9 mg/dL 01/03/2022 2:52 PM SEO ASSISTANT [facility] 01/03/2022 12:0 0 PM SEO ASSISTANT Abiodun Segura II, MD LABORATORY Final R esult Performing Organization Address City/[facility]/ZIP Co de Phone Number [facility] [address] [place] [address], [place] [phone] * CK (CPK) (01/03/2022 12:00 PM SEO ASSISTANT) CPK 110 26 - 192 U/L 01/03/2022 2:52 PM SEO ASSISTANT [facility] 01/03/2022 12:0 0 PM SEO ASSISTANT Abiodun Segura II, MD LABORATORY Final R esult Performing Organization Address City/[facility] Co de Phone Number [facility] [address] [place] [address], [place] [phone] documented in this encounter Visit Diagnoses 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[facility]/HCC [facility]) Other specified disorder of skin Face, neck, and scalp except eye, blister, infected documented in this encounter Additional Health Concerns Assessment Noted Time PHQ-9 Depression Total Score: 0 03/08/19 22 9:30 AM SEO ASSISTANT documented as of this encounter Care Teams Public Health Director Relationship Specialty Start Date End Date Abiodun Segura II, MD [address] [place] [address] PCP - General FAMILY PRACTICE 03/09/21 documented as of this encounter
--- OUTSIDE RECORDS SUMMARY | 2024-03-03 01:24 | XMS_ITS | Encounter Summary ---
Author Organization [facility] Address [address] [place] [address]. [place], [place] [address] [place] [address] Care Team Providers Care Test Tech Name Role Phone Colton SILVEIRA MD, [...] Coronavirus/COVID-19? No / Unsure 01/10/2022 11:53 AM SUPERVISOR TILE AND MOTTLE documented as of this encounter Functional Status [...] Contact Info) Description 03/14/2024 11:45 AM SUPERVISOR TILE AND MOTTLE Office Visit [facility] [phone] Marvin Mckeon MD Three [facility] [address] [place] [address] 03/20/2024 11:30 AM SUPERVISOR TILE AND MOTTLE Office Visit [facility] Medical Group Family Medicine - [place] 100 [place] [phone] Abiodun Segura II, MD 100 [place] [address] documented as of this encounter Procedures Procedure [...] Depression Total Score: 0 03/08/19 9:30 AM SUPERVISOR TILE AND MOTTLE documented as of this encounter Care Teams Test Tech Relationship Specialty Start Date End Date Abiodun Segura II, MD [address] [place] [address] PCP - General FAMILY PRACTICE 03/09/21 documented as of this encounter
--- OUTSIDE RECORDS SUMMARY | 2024-03-03 01:24 | XMS_ITS | Encounter Summary ---
Author Organization [facility] Address [address] [place] [address]. [place], [place] [address] [place] [address] Care Team Providers Care Home Visitor Home Base Head Start Name Role Phone Colton SILVEIRA MD, Abiodun Rushing Primary Care Provider Reason for Visit * Auth/Cert Specialty Diagnoses / Procedures Referred By Lyla chaney Referred To Contact Home Health Services / [facility] Care [address] [place] [address] [place] [address] Phone: tel: fax: Referral ID Status Reason Start Date Expiration Date Visits Re quested Visits Authorized [id number] 1 1 Encounter Details Date Type Department Care Team (Late st Contact Info) Description 01/08/2022 Home Care Visit [facility] Home Care [address] [place] [address] [place] [address] Mandy Han, RN [phone] (Work) CASE COMMUNICATION Social History Tobacco [...] Coronavirus/COVID-19? No / Unsure 01/01/2022 7:00 PM SKEET OPERATOR documented as of this encounter Functional [...] st Contact Info) Description 03/14/2024 11:45 AM SKEET OPERATOR Office Visit [facility] [phone] Marvin Mckeon MD [facility] [address] [place] [address] 03/20/2024 11:30 AM SKEET OPERATOR Office Visit [facility] Medical Group Family Medicine - [place] 100 [place] [phone] Abiodun Segura II, MD 100 [place] [address] documented as of this encounter Visit Diagnoses Not on filedocumented in this encounter Additional Health Concerns Assessment Noted Time PHQ-9 Depression Total Score: 0 03/08/19 9:30 AM SKEET OPERATOR documented as of this encounter Care Teams Home Visitor Home Base Head Start Relationship Specialty Start Date End Date Abiodun Segura II, MD 100 [place] [address] PCP - General FAMILY PRACTICE 03/09/21 documented as of this encounter
--- OUTSIDE RECORDS SUMMARY | 2024-03-03 01:24 | XMS_ITS | Encounter Summary ---
Author Organization [facility] Address [address] [place] [address]. [place] [address] [place] [address] Care Team Providers Care Seafood Fisherman Name Role Phone Colton SILVEIRA MD, Abiodun Rushing Primary Care Provider Reason for Referral * Imaging (Routine) - Closed Specialty Diagnoses / Procedures Referred By Lyla chaney Referred To Contact RADIOLOGY Diagnoses Right arm pain Procedures USV JOANIE DUPLEX UP EXT RT Keisha Rios FNP-BC Referral ID Status Reason Start Date Expiration Date Visits Re quested Visits Authorized [id number] Closed 01/02/2022 02/02/2023 1 1 STANT READING TEACHER Reason for Visit * Imaging (Routine) - Closed Specialty Diagnoses / Procedures Referred By Lyla chaney Referred To Contact RADIOLOGY Diagnoses Right arm pain Procedures USV JOANIE DUPLEX UP EXT RT Keisha Rios FNP-BC Referral ID Status Reason Start Date Expiration Date Visits Re quested Visits Authorized [id number] Closed 01/02/2022 02/02/2023 1 1 Encounter Details Date Type Department Care Team (Latest Contact Info) Description 01/02/2022 6:40 AM ASSISTANT READING TEACHER - 01/02/2022 11:59 PM ASSISTANT READING TEACHER Hospital Encounter [facility] V[facility] [address] [facility] [place] [address] Keisha Rios FNP-BC Discharge Disposition: Home or [...] Coronavirus/COVID-19? No / Unsure 01/01/2022 7:00 PM ASSISTANT READING TEACHER documented as of this encounter Functional [...] arthropathy, with long-term current use of insulin ([facility]) Inject 3 mg into the skin weekly. [...] Contact Info) Description 03/14/2024 11:45 AM ASSISTANT READING TEACHER Office Visit [facility] [phone] Marvin Mckeon MD [facility] [address] [place] [address] 03/20/2024 11:30 AM ASSISTANT READING TEACHER Office Visit [facility] Medical Group Family Medicine - [place] 100 [place] [phone] Abiodun Segura II, MD 100 [place] [address] documented as of this encounter Procedures Procedure Name Priority Date/Time Associated Diagnosis Comments USV JOANIE DUPLEX UP EXT RT Routine 01/02/2022 11:06 AM ASSISTANT READING TEACHER Right arm pain documented in this encounter Results * USV JOANIE DUPLEX UP EXT RT (01/02/2022 11:06 AM ASSISTANT READING TEACHER) Anatomical Region Laterality Modality Extremity Vascular Ultraso und 01/02/2022 10:3 1 AM ASSISTANT READING TEACHER Narrative 01/03/2022 11:33 AM ASSISTANT READING TEACHER ?VENOUS DUPLEX IMAGING ?RIGHT UPPER EXTREMITY ? VASCULAR LAB Pat.Name: ??[facility] ?Pat.ID: ?[id number] ? St.Date: ?? 01/02/2022 ?Refer.MD: ??Abiodun Segura [...] EXTREMITY VASCULAR LAB Pat.Name: [facility] Pat.ID: [id number] .Date: 01/02/2022 Refer.MD: Abiodun Segura Exam Time: [...] 11:33 AM Hubert Barrera M.D. Keisha Rios DINING ROOM ATTENDANT- US VASC Final Res ult documented in this encounter Visit Diagnoses Diagnosis Right arm pain Pain in limb documented in this encounter Additional Health Concerns Assessment Noted Time PHQ-9 Depression Total Score: 0 03/08/19 22 9:30 AM ASSISTANT READING TEACHER documented as of this encounter Care Teams Seafood Fisherman Relationship Specialty Start Date End Date Abiodun Segura II, MD 100 [place] [address] PCP - General FAMILY PRACTICE 03/09/21 documented as of this encounter
--- OUTSIDE RECORDS SUMMARY | 2024-03-03 01:24 | XMS_ITS | Encounter Summary ---
Author Organization [facility] Address [address] [place] [address]. [place] [address] [place] [address] Care Team Providers Care Event Services Manager Name Role Phone Colton SILVEIRA MD, Abiodun Rushing Primary Care Provider Encounter Details Date Type Department Care Team (Late st Contact Info) Description 12/28/2021 Hospital Follow-up Call [facility] Med/Surg [address] [place] [address] Teresa Amaya RN Social History [...] st Contact Info) Description 03/14/2024 11:45 AM BOW STRING MAKER Office Visit [facility] [phone] Marvin Mckeon MD [facility] [address] [place] [address] 03/20/2024 11:30 AM BOW STRING MAKER Office Visit [facility] Medical Group Family Medicine - [place] [phone] Abiodun Segura II, MD [address] [place] [phone] documented as of this encounter Visit Diagnoses Not on filedocumented in this encounter Additional Health Concerns Assessment Noted Time PHQ-9 Depression Total Score: 0 03/08/19 9:30 AM BOW STRING MAKER documented as of this encounter Care Teams Event Services Manager Relationship Specialty Start Date End Date Abiodun Segura II, MD 100 [place] [address] PCP - General FAMILY PRACTICE 03/09/21 documented as of this encounter
--- OUTSIDE RECORDS SUMMARY | 2024-03-03 01:24 | XMS_ITS | Encounter Summary ---
Author Organization [facility] Address [address] [place] [address]. [place], [place] [phone] [place] [address] Care Team Providers Care Sampler First Name Role Phone Colton SILVEIRA MD, Abiodun Rushing Primary Care Provider Reason for Visit * Auth/Cert Specialty Diagnoses / Procedures Referred By Lyla chaney Referred To Contact Home Health Services / [facility] Home Care [address] [place] [address] [place] [address] Phone: tel: fax: Referral ID Status Reason Start Date Expiration Date Visits Re quested Visits Authorized [id number] 1 1 Encounter Details Date Type Department Care Team (Latest Contact Info) Description 12/27/2021 9:30 AM GUEST SERVICES ATTENDANT Home Care Visit [facility] Home [address] [place] [address] [place] [address] Mauricio Abbott, RN [phone] (Work) SN OASIS START OF CARE [...] Coronavirus/COVID-19? No / Unsure 01/01/2022 7:00 PM GUEST SERVICES ATTENDANT documented as of this encounter Last Filed Vital Signs Vital Sign Reading Time Taken Comments Blood Pressure 114/74 12/27/2021 9:31 AM GUEST SERVICES ATTENDANT Pulse 90 12/27/2021 9:29 AM GUEST SERVICES ATTENDANT Temperature 36 ??C (96.8 ??F) 12/27/2021 9:29 AM GUEST SERVICES ATTENDANT Respiratory Rate 18 12/27/2021 9:29 AM GUEST SERVICES ATTENDANT Oxygen Saturation 100% 12/27/2021 9:29 AM GUEST SERVICES ATTENDANT Inhaled Oxygen Concentration - - Weight [...] Abbott RN - 12/27/2021 3:09 PM CSTTerritory: [facility] [place] Referrals to other disciplines needed: No Reason for Services: IV therapy, Diabetic wound infection Past Medical History: DM, HTN, HLD, neuropathy, left charcot foot Patient was IP at [facility] for wound infection to right 1st and [...] independent with applying dry bandage as needed. T SERVICES ATTENDANT documented in this encounter Plan of Treatment Upcoming Encounters Date Type Department Care Team (Late st Contact Info) Description 03/14/2024 11:45 AM GUEST SERVICES ATTENDANT Office Visit [facility] [phone] Marvin Mckeon MD Three [facility] [address] [place] [address] 03/20/2024 11:30 AM GUEST SERVICES ATTENDANT Office Visit [facility] Medical Group Family Medicine - [place] 100 [place] [phone] Abiodun Segura II, MD 100 [place] [address] documented as of this encounter Visit Diagnoses Not on filedocumented in this encounter Additional Health Concerns Assessment Noted Time PHQ-9 Depression Total Score: 0 03/08/19 22 9:30 AM GUEST SERVICES ATTENDANT documented as of this encounter Home Health Visit - Care Plan Visit Details Visit Type -SN - OASIS Start of Care Discipline -Mcc Problems Problem Description Start Date Status Goals [...] infection .?? Results to Dr Segura fax [phone] and IV care fax [phone]. Problem:Learning/Tea charisse Needs - IV Therapy Goal:Patient/caregiv [...] in daily log. Instruct to notify physician distribution center supervisor of fasting blood sugar if <70mg/dl [...] Completed documented in this encounter Care Teams Sampler First Relationship Specialty Start Date End Date Abiodun Segura II, MD 100 [place] [address] PCP - General FAMILY PRACTICE 03/09/21 documented as of this encounter
--- OUTSIDE RECORDS SUMMARY | 2024-03-03 01:24 | XMS_ITS | Encounter Summary ---
Author Organization [facility] Address [address] [place] [address]. [place], [place] [address] [place] [address] Care Team Providers Care Linter Tender Name Role Phone Colton SILVEIRA MD, [...] Coronavirus/COVID-19? No / Unsure 01/01/2022 7:00 PM SOAKERS SUPERVISOR documented as of this encounter Functional [...] st Contact Info) Description 03/14/2024 11:45 AM SOAKERS SUPERVISOR Office Visit [facility] [phone] Marvin Mckeon MD [facility] [address] [place] [phone] 03/20/2024 11:30 AM SOAKERS SUPERVISOR Office Visit [facility] Medical Group Family Medicine - [place] 100 [place] [phone] Abiodun Segura II, MD [address] [place] [phone] documented as of this encounter Visit Diagnoses Not on filedocumented in this encounter Additional Health Concerns Assessment Noted Time PHQ-9 Depression Total Score: 0 03/08/19 9:30 AM SOAKERS SUPERVISOR documented as of this encounter Care Teams Linter Tender Relationship Specialty Start Date End Date Abiodun Segura II, MD 100 [place] [address] PCP - General FAMILY PRACTICE 03/09/21 documented as of this encounter
--- OUTSIDE RECORDS SUMMARY | 2024-03-03 01:24 | XMS_ITS | Encounter Summary ---
Author Organization [facility] Address [address] [place] [address]. [place] [address] [place] [address] Care Team Providers Care Physiotherapy Practice Manager Name Role Phone Colton SILVEIRA MD, Abiodun Rushing Primary Care Provider Reason for Visit * Reason Comments Line Care/Maint * Treatment/Therapy Plan Authorization (Routine) - Pending Review Specialty Diagnoses / Procedures Referred By Lyla t Referred To Contact Diagnoses Other chronic osteomyelitis of foot, unspecified laterality ([facility]/HCC [facility]) Procedures ALTEPLASE RECOMBINANT Abiodun Segura II, MD [address] [place] [address] Phone: tel: fax: [facility] [address] Phone: tel: fax: Referral ID Status Reason Start Date Expiration Date Visits Requested Visits Authorized [id number] Pending Review Medication 02/18/2022 1 1 Encounter Details Date Type Department Care Team (Late st Contact Info) Description 01/10/2022 11:30 AM WILTON WEAVER Treatment [facility] [address] Abiodun Segura II, MD [address] [place] [address] Line Care/Maint Social History Tobacco Use Types [...] Coronavirus/COVID-19? No / Unsure 01/10/2022 11:53 AM WILTON WEAVER documented as of this encounter Functional Status [...] day. Home health nurse Sunshine is notified. ON WEAVER documented in this encounter Plan of Treatment Upcoming Encounters Date Type Department Care Team (Late st Contact Info) Description 03/14/2024 11:45 AM WILTON WEAVER Office Visit [facility] [phone] Marvin Mckeon MD [address] [facility] [address] [place] [address] 03/20/2024 11:30 AM WILTON WEAVER Office Visit [facility] Family Medicine - [place] [address] [place] [phone] Abiodun Segura II, MD [address] [place], [place] [phone] documented as of this encounter Procedures Procedure Name Priority Date/Time Associated Diagnosis Comments C-REACTIVE PROTEIN Routine 01/10/2022 12 :22 PM WILTON WEAVER Osteomyelitis ([facility] HHS/HCC) CK (CPK) Routine 01/10/2022 12:22 PM WILTON WEAVER Osteomyelitis ([facility] HHS/HCC) documented in this encounter Results * CK (CPK) (01/10/2022 12:22 PM WILTON WEAVER) CPK 106 21 - 215 U/L 01/10/2022 1:30 PM WILTON WEAVER [facility] 01/10/2022 12:2 2 PM WILTON WEAVER Abiodun Segura II, MD LABORATORY Final R esult Performing Organization Address City/[facility]/ZIP Co de Phone Number [facility] [address] [place] [address], [place] [phone] * (ABNORMAL) C-REACTIVE PROTEIN (01/10/2022 12:22 PM WILTON WEAVER) C-REACTIVE PROTEIN 2.35(H) <0.29 mg/dL 01/10/2022 1:30 PM WILTON WEAVER [facility] 01/10/2022 12:2 2 PM WILTON WEAVER Abiodun Segura II, MD LABORATORY Final R esult Performing Organization Address City/[facility] Co de Phone Number [facility] [address] [place] [address], [place] [phone] documented in this encounter Visit Diagnoses Diagnosis Osteomyelitis (CMS/HCC [facility])- Primary Unspecified osteomyelitis, site unspecified documented in this encounter Additional Health Concerns Assessment Noted Time PHQ-9 Depression Total Score: 0 03/08/19 9:30 AM WILTON WEAVER documented as of this encounter Care Teams Physiotherapy Practice Manager Relationship Specialty Start Date End Date Abiodun Segura II, MD [address] [place] [address] PCP - General FAMILY PRACTICE 03/09/21 documented as of this encounter
--- OUTSIDE RECORDS SUMMARY | 2024-03-03 01:24 | XMS_ITS | Encounter Summary ---
Author Organization [facility] Address [address] [place] [address]. [place], [place] [id number] [place] [phone] Care Team Providers Care Configuration Technician Name Role Phone Colton SILVEIRA MD, [...] Coronavirus/COVID-19? No / Unsure 01/10/2022 11:53 AM IVF EMBRYOLOGIST documented as of this encounter Functional Status [...] st Contact Info) Description 03/14/2024 11:45 AM IVF EMBRYOLOGIST Office Visit [facility]-[address] [phone] [facility] [address] [place] [phone] 03/20/2024 11:30 AM IVF EMBRYOLOGIST Office Visit [facility] Family Medicine - [place] [address] [place] [phone] Aboidun Segura II, MD [address] [place] [phone] documented as of this encounter Visit Diagnoses Not on filedocumented in this encounter Additional Health Concerns Assessment Noted Time PHQ-9 Depression Total Score: 0 03/08/19 9:30 AM IVF EMBRYOLOGIST documented as of this encounter Care Teams Configuration Technician Relationship Specialty Start Date End Date Abiodun Segura II, MD [address] [place] [address] PCP - General FAMILY PRACTICE 03/09/21 documented as of this encounter
--- OUTSIDE RECORDS SUMMARY | 2024-03-03 01:24 | XMS_ITS | Encounter Summary ---
Author Organization [facility] Address [address] [place] [address]. [place], [place] [address] [place] [address] Care Team Providers Care Retail Team Member Name Role Phone Colton SILVEIRA MD, Abiodun Rushing Primary Care Provider Reason for Referral * Imaging (Routine) - Closed Specialty Diagnoses / Procedures Referred By Lyla t Referred To Contact RADIOLOGY Diagnoses Right arm pain Procedures USV JOANIE DUPLEX UP EXT RT Keisha John FNP-BC Referral ID Status Reason Start Date Expiration Date Visits Re quested Visits Authorized [id number] Closed 01/02/2022 02/02/2023 1 1 T METAL TECHNICIAN * Imaging (Emergency) - Closed Specialty Diagnoses / Procedures Referred By Lyla chaney Referred To Contact RADIOLOGY Procedures CTA CHEST PE PROTOCOL Keisha John FNP-BC Referral ID Status Reason Start Date Expiration Date Visits Re quested Visits Authorized [id number] Closed 01/01/2022 01/01/2023 1 1 T METAL TECHNICIAN Reason for Visit * Reason Comments Picc Line Problem Encounter Details Date Type Department Care Team ([facility] st Contact Info) Description 01/01/2022 7:42 PM SHEET METAL TECHNICIAN - 01/02/2022 12:57 AM SHEET METAL TECHNICIAN Emergency [facility] Emergency Room [address] [place] [phone] Keisha John, INTERNET CONSULTANT- Picc Line Problem Discharge Disposition: Home or [...] Coronavirus/COVID-19? No / Unsure 01/01/2022 7:00 PM SHEET METAL TECHNICIAN documented as of this encounter Last Filed Vital Signs Vital Sign Reading Time Taken Comments Blood Pressure 145/89 01/01/2022 10:06 PM SHEET METAL TECHNICIAN Pulse 86 01/01/2022 10:06 PM SHEET METAL TECHNICIAN Temperature 36.4 ??C (97.6 ??F) 01/01/2022 7:02 PM CS T Respiratory Rate 20 01/01/2022 10:06 PM SHEET METAL TECHNICIAN Oxygen Saturation 100% 01/01/2022 10:06 PM SHEET METAL TECHNICIAN Inhaled Oxygen Concentration - - Weight 83.5 kg (184 lb) 01/01/2022 7:02 PM SHEET METAL TECHNICIAN Height 167.6 cm (5' 6 ) 01/01/2022 7:02 PM SHEET METAL TECHNICIAN Body Mass Index 29.7 01/01/2022 7:02 PM SHEET METAL TECHNICIAN documented in this encounter Functional Status [...] Instructions* JESSICA Lambert - 01/02/2022 12:29 AM SHEET METAL TECHNICIAN Please continue your medications as prescribed. Be sure to call Dr Segura for follow up first thing in the morning. Be sure to return to outpatient scheduling at [facility] for your ultrasound of your arm tomorrow morning at 10:30AM T METAL TECHNICIAN T METAL TECHNICIAN * Attachments The following attachments cannot be sent through Care Everywhere. * Muscle and Bone Pain Discharge Instructions (Faroese) * Opioids for Short-Term Treatment of Pain ED (Faroese) documented in this encounter Medications at Time [...] arthropathy, with long-term current use of insulin ([facility]) Inject 3 mg into [...] this encounter ED Notes * Keisha John, INTERNET CONSULTANT-BC - 01/01/2022 8:51 PM CST History Chief [...] CHEST PE PROTOCOL Final Result by User, [id number] (01/01 2251) EXAMINATION: CTA CHEST WITH CONTRAST [...] XR CHEST PORTABLE Final Result by User, [id number] (01/01 2018) Exam: Chest x-ray 1947 hours [...] as of 01/02/22 0040 Sun Jan 01, 20222208--information technology administrator returned page and refused to come in for the study. Dr Barrera, vascular surgeon, paged. [MP] 2210 2010--Dr Barrera returned page and states that the CTA chest should pickle processor any venous thrombosis.No vascular duplex will be done tonight per vascular surgeon. [MP] [facility] Jan 02, 2022 0015 0015--Discussed results with [...] Follow up instructions: Abiodun Segura II, MD [address] [place] [address] Call in 1 day call first thing in the morning JESSICA LAMBERT Please excuse any grammatical or spelling errors as this chart was documented using Boke, a dictation software. JESSICA Lambert 01/02/22 0040 Cosigned by Davina Joe MD at 01/02/2022 8:42 PM SHEET METAL TECHNICIAN T METAL TECHNICIAN T METAL TECHNICIAN Associated attestation - Davina Joe MD - 01/02/2022 8:42 PM SHEET METAL TECHNICIAN I did not evaluate this patient although [...] SIMRAN Wiggins - 01/01/2022 7:09 PM CST [place], [place] EMERGENCY DEPARTMENT ENCOUNTER Medical Screening Examination [...] Davina Joe MD at 01/02/2022 8:01 PM SHEET METAL TECHNICIAN T METAL TECHNICIAN T METAL TECHNICIAN Associated attestation - Davina Joe MD - 01/02/2022 8:01 PM SHEET METAL TECHNICIAN I did not evaluate this patient although [...] exertion and fatigue. Pt reports denies fevers. T METAL TECHNICIAN documented in this encounter Plan of Treatment Upcoming Encounters Date Type Department Care Team (Late st Contact Info) Description 03/14/2024 11:45 AM SHEET METAL TECHNICIAN Office Visit [facility] [phone] Marvin Mckeon MD Three [facility] [address] [place] [phone] 03/20/2024 11:30 AM SHEET METAL TECHNICIAN Office Visit [facility] Family Medicine - [address] [phone] Abiodun Segura II, MD [address] [place] [address] documented as of this encounter Procedures Procedure Name Priority Date/Time Associated Diagnosis Comments TROPONIN, QUANT STAT 01/01/2022 11:16 PM SHEET METAL TECHNICIAN ECG 12-LEAD STAT 01/01/2022 10:59 PM SHEET METAL TECHNICIAN CTA CHEST PE PROTOCOL STAT 01/01/2022 10:27 PM SHEET METAL TECHNICIAN ECG 12-LEAD STAT 01/01/2022 9:00 PM SHEET METAL TECHNICIAN COMPREHENSIVE METABOLIC PANEL STAT 01/01/2022 8:58 PM SHEET METAL TECHNICIAN CBC W/DIFF AUTOMATED STAT 01/01/2022 8:58 PM SHEET METAL TECHNICIAN TROPONIN, QUANT STAT 01/01/2022 8:58 PM SHEET METAL TECHNICIAN XR CHEST PORTABLE STAT 01/01/2022 8:0 7 PM SHEET METAL TECHNICIAN documented in this encounter Results * USV JOANIE DUPLEX UP EXT RT (01/02/2022 11:06 AM SHEET METAL TECHNICIAN) Anatomical Region Laterality Modality Extremity Vascular Ultraso und 01/02/2022 10:3 1 AM SHEET METAL TECHNICIAN Narrative 01/03/2022 11:33 AM SHEET METAL TECHNICIAN ?VENOUS DUPLEX IMAGING ?RIGHT UPPER EXTREMITY ? VASCULAR LAB Pat.Name: ??LENA YOUNGBLOOD ?Pat.ID: ?[id number] ? St.Date: ?? 01/02/2022 ?Refer.: ??Abiodun Segura [...] EXTREMITY VASCULAR LAB Pat.Name: LENA YOUNGBLOOD Pat.ID: [id number] .Date: 01/02/2022 Refer.MD: Abiodun Segura Exam Time: [...] Signature> 01/03/2022 11:33 AM Hubert Barrera M.D. [facility] Final Res ult * TROPONIN, QUANT (01/01/2022 11:16 PM SHEET METAL TECHNICIAN) [facility] TROPONIN I HIGH SENSITIVITY 6 <54 ng/L 01/01/2022 11:39 PM SHEET METAL TECHNICIAN [facility] Comment: HIGH DOSES OF BIOTIN, TROPONIN-SPECIFIC AUTOANTIBODIES, AND ANTIBODY THERAPY CONTAINING HAMA MAY INTERFERE WITH THIS TEST RESULT. CORRELATION TO CLINICAL HISTORY AND PRESENTATION RECOMMENDED. 01/01/2022 11:1 6 PM SHEET METAL TECHNICIAN [facility] Final Res ult [facility] [address] [place] [address], * ECG 12 lead (01/01/2022 10:59 PM SHEET METAL TECHNICIAN) 01/01/2022 10:5 9 PM SHEET METAL TECHNICIAN Narrative [facility] ([facility]) RAD - 01/03/2022 5:33 PM SHEET METAL TECHNICIAN ?[facility] ? [address] [facility] ? Test Date: ?2022-01-01 Pat Name: ? LENA YOUNGBLOOD ?Department: ?? 41 ? Room: ? [id number] Gender: ? Female ? 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 [id number] : ?1970 ? Requested By: KEISHA JOHN Order Number: [id number] ? Reading MD: ?? Marvin Mckeon ? Measurements Intervals ?[place] ? Rate: ? 86 ? P: ?48 MS: ? 187 ?QRS: ?17 QRSD: ? 86 ? T: ?46 QT: ? 369 ? QTc: ?441 ? Interpretive Statements SINUS RHYTHM WITH OCCASIONAL VENTRICULAR PREMATURE COMPLEXES NONSPECIFIC T-WAVE ABNORMALITY Compared to ECG 01/01/2022 21:00:10 No significant changes T METAL TECHNICIAN Procedure Note Marvin Mckeon MD - 01/03/2022 [facility] Test Date: 2022-01-01 Pat Name: LENA YOUNGBLOOD Department: 41 Room: [place] [address] Gender: Female Antique Furniture Restorer: [id number] : 1970 Requested By: KEISHA JOHN Order Number: [id number] Reading MD: Marvin Mckeon Measurements Intervals [place] Rate: 86 P: 48 MS: 187 QRS: 17 QRSD: 86 T: 46 QT: 369 QTc: 441 Interpretive Statements SINUS RHYTHM WITH OCCASIONAL VENTRICULAR PREMATURE COMPLEXES NONSPECIFIC T-WAVE ABNORMALITY Compared to ECG 01/01/2022 21:00:10 No significant changes T METAL TECHNICIAN us Keisha John INTERNET CONSULTANT-BC ECG ORDERABLES Final Res ult [facility] RAD * CTA CHEST PE PROTOCOL (01/01/2022 10:27 PM SHEET METAL TECHNICIAN) Anatomical Region Laterality Modality Chest Computed Tomogra phy 01/01/2022 10:4 3 PM SHEET METAL TECHNICIAN Impressions 01/01/2022 10:50 PM SHEET METAL TECHNICIAN IMPRESSION: 1. ??No evident pulmonary embolism or other acute process in the chest. 2. ??Dilated right renal collecting system as seen on the prior studies. Referred By: ?? Interpreted By: Americo Arthur MD, 01/01/2022 10:43 PM Narrative 01/01/2022 10:50 PM SHEET METAL TECHNICIAN EXAMINATION: CTA CHEST WITH CONTRAST CLINICAL HISTORY: [...] 01/01/2022 10:43 PM us Keisha F Gabriel INTERNET CONSULTANT-BC CT Final Res ult * ECG 12 lead (01/01/2022 9:00 PM SHEET METAL TECHNICIAN) 01/01/2022 9:00 PM SHEET METAL TECHNICIAN Narrative [facility] J[facility]NY [facility]MAN ([facility]) RAD - 01/03/2022 3:19 PM SHEET METAL TECHNICIAN ?[place] ? [address] [place] ? Test Date: ?2022-01-01 Pat Name: ? LENA YOUNGBLOOD ?Department: ?? 41 ? Room: ? [id number] Gender: ? Female ? 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 [id number] : ?1970 ? Requested By: KEISHA JOHN Order Number: [id number] ? Reading MD: ?? Vinaya Jasonkareddy ? Measurements Intervals ?[place] ? Rate: ? 89 ? P: ?46 MS: ? 182 ?QRS: ?12 QRSD: ? 85 ? T: ?80 QT: ? 350 ? QTc: ?428 ? Interpretive Statements SINUS RHYTHM WITH OCCASIONAL VENTRICULAR PREMATURE COMPLEXES NONSPECIFIC T-WAVE ABNORMALITY Compared to ECG 12/16/2021 15:41:56 Ventricular premature complex(es) now present T METAL TECHNICIAN Procedure Note Marvin Mckeon MD - 01/03/[address] Test Date: 2022-01-01 Pat Name: LENA YOUNGBLOOD Department: Room: [place] [address] Gender: Female Antique Furniture Restorer: [id number] : 1970 Requested By: KEISHA JOHN Order Number: [id number] Reading MD: Marvin Mckeon Measurements Intervals [place] Rate: 89 P: 46 MS: 182 QRS: 12 QRSD: 85 T: 80 QT: 350 QTc: 428 Interpretive Statements SINUS RHYTHM WITH OCCASIONAL VENTRICULAR PREMATURE COMPLEXES NONSPECIFIC T-WAVE ABNORMALITY Compared to ECG 12/16/2021 15:41:56 Ventricular premature complex(es) now present T METAL TECHNICIAN us Keisha John INTERNET CONSULTANT-BC ECG ORDERABLES Final Res ult [facility] RAD * TROPONIN, QUANT (01/01/2022 8:58 PM SHEET METAL TECHNICIAN) TROPONIN I HIGH SENSITIVITY 6 <54 ng/L 01/01/2022 9:32 PM SHEET METAL TECHNICIAN [facility] Comment: HIGH DOSES OF BIOTIN, TROPONIN-SPECIFIC AUTOANTIBODIES, AND ANTIBODY THERAPY CONTAINING HAMA MAY INTERFERE WITH THIS TEST RESULT. CORRELATION TO CLINICAL HISTORY AND PRESENTATION RECOMMENDED. 01/01/2022 8:58 PM SHEET METAL TECHNICIAN us Keisha Self Gabriel INTERNET CONSULTANT- LABORATORY Final Res ult [facility] [address] [place] [address], [place] [phone] * (ABNORMAL) COMPREHENSIVE METABOLIC PANEL (01/01/2022 8:58 PM SHEET METAL TECHNICIAN) [facility] GLUCOSE 184(H) 70 - 99 MG/DL 01/01/2022 9:32 PM SHEET METAL TECHNICIAN [facility] BUN 24(H) 7 - 18 MG/DL 01/01/2022 9:32 PM SHEET METAL TECHNICIAN [facility] CREATININE S/P/B 1.05(H) 0.55 - 1.02 MG/DL 01/01/2022 9:32 PM SHEET METAL TECHNICIAN [facility] SODIUM S/P/B 136 136 - 145 MMOL/L 01/01/2022 9:32 PM SHEET METAL TECHNICIAN [facility] POTASSIUM S/P/B 4.0 3.5 - 5.1 MMOL/L 01/01/2022 9:32 PM SHEET METAL TECHNICIAN [facility] CHLORIDE S/P/B 106 100 - 108 MMOL/L 01/01/2022 9:32 PM SHEET METAL TECHNICIAN [facility] CO2 24.0 21 - 32 MMOL/L 01/01/2022 9:32 PM SHEET METAL TECHNICIAN [facility] CALCIUM S/P/B 9.7 8.5 - 10.1 MG/DL 01/01/2022 9:32 PM SHEET METAL TECHNICIAN [facility] BILIRUBIN TOTAL S/P/B 0.4 0.2 - 1.2 MG/DL 01/01/2022 9:32 PM SHEET METAL TECHNICIAN [facility] Comment: THIS ASSAY IS NOT RECOMMENDED FOR PATIENTS UNDERGOING TREATMENT WITH ELTROMBOPAG DUE TO THE POTENTIAL FOR FALSELY ELEVATED RESULTS. TOTAL PROTEIN S/P/B 8.7(H) 6.4 - 8.2 G/DL 01/01/2022 9:32 PM SHEET METAL TECHNICIAN [facility] ALBUMIN S/P/B 3.2(L) 3.4 - 5.0 G/DL 01/01/2022 9:32 PM [facility] AST 15 15 - 37 U/L 01/01/2022 9:32 PM [facility] ALT 46 14 - 55 U/L 01/01/2022 9:32 PM [facility] ALKALINE PHOSPHATASE S/P/B 166(H) 50 - 136 U/L 01/01/2022 9:32 PM [facility] ANION GAP 6.0 5 - 15 MMOL/L 01/01/2022 9:32 PM [facility] BUN CREATININE RATIO 22.9 6 - 26 01/01/2022 9:32 PM [facility] A/G RATIO 0.6(L) 1.0 - 2.0 RATIO 01/01/2022 9:32 PM [facility] GFR ESTIMATE 65(L) >90 ML/MIN/1.7 3 M2 01/01/2022 9:32 PM [facility] Comment: NOTE: eGFR is not calculated for patients <18 years of age. This is an estimated GFR calculation using the new CKD EPI creatinine equation without race and so does not require a correction factor for race. This estimated GFR should not be used for calculating drug doses. 01/01/2022 8:58 PM SHEET METAL TECHNICIAN Keisha John [facility]- LABORATORY Final Res ult [facility] [address] [place] [address], [place] [phone] * (ABNORMAL) CBC W/DIFF AUTOMATED (01/01/2022 8:58 PM SHEET METAL TECHNICIAN) [facility] WBC 11.6(H) 4.5 - 11.0 x10'3/uL 01/01/2022 9:56 PM SHEET METAL TECHNICIAN [facility] RBC 3.75(L) 4.20 - 5.40 x10'6/uL 01/01/2022 9:56 PM [facility] HGB 11.3(L) 12.0 - 16.0 G/DL 01/01/2022 9:56 PM SHEET METAL TECHNICIAN [facility] HCT 33.5(L) 38.0 - 48.0 % 01/01/2022 9:56 PM [facility] MCV 89.3 81.0 - 99.0 FL 01/01/2022 9:56 PM [facility] MCH 30.1 27.0 - 31.0 PG 01/01/2022 9:56 PM [facility] MCHC 33.7 32.0 - 36.0 G/DL 01/01/2022 9:56 PM [facility] RDW 13.1 11.5 - 14.5 % 01/01/2022 9:56 PM [facility] PLT 279 130 - 400 x10'3/uL 01/01/2022 9:56 PM [facility] MPV 11.4 9.3 - 12.2 FL 01/01/2022 9:56 PM [facility] DIFFERENTIAL TYPE AUTOMATED DIFFERENTIAL 01/01/2022 9:56 PM [facility] NEUTROPHILS % 66.1 % 01/01/2022 9:56 PM [facility] LYMPHOCYTES % 26.3 % 01/01/2022 9:56 PM [facility] MONOCYTES % 5.4 % 01/01/2022 9:56 PM SHEET METAL TECHNICIAN [facility] EOSINOPHILS 1.3 % 01/01/2022 9:56 PM SHEET METAL TECHNICIAN [facility] BASOPHILS 0.5 % 01/01/2022 9:56 PM SHEET METAL TECHNICIAN [facility] IMMATURE GRANS % 0.4 % 01/02/20 9:56 PM SHEET METAL TECHNICIAN [facility] ABS. NEUTROPHILS TOTAL 7.69 1.80 - 7.70 x10'3/uL 01/01/2022 9:56 PM SHEET METAL TECHNICIAN [facility] ABS. LYMPHOCYTES 3.06 1.00 - 4.80 x10'3/uL 01/01/2022 9:56 PM SHEET METAL TECHNICIAN [facility] ABS. MONOCYTES 0.63 0.24 - 0.86 x10'3/uL 01/01/2022 9:56 PM SHEET METAL TECHNICIAN [facility] ABS. EOSINOPHILS 0.15 0.04 - 0.36 x10'3/uL 01/01/2022 9:56 PM SHEET METAL TECHNICIAN [facility] ABS. BASOPHILS 0.06 0.01 - 0.08 x10'3/uL 01/01/2022 9:56 PM SHEET METAL TECHNICIAN [facility] ABS. IMMATURE GRANULOCYTES 0.05 0.00 - 0.49 x10'3/uL 01/01/2022 9:56 PM SHEET METAL TECHNICIAN [facility] 01/01/2022 8:58 PM SHEET METAL TECHNICIAN us Keisha John INTERNET CONSULTANT-BC LABORATORY Final Res ult [facility] [address] [place] [address], [place] [phone] * XR CHEST PORTABLE (01/01/2022 8:07 PM SHEET METAL TECHNICIAN) Anatomical Region Laterality Modality Chest Radiographic Shelli ging 01/01/2022 8:16 PM SHEET METAL TECHNICIAN Impressions 01/01/2022 8:17 PM SHEET METAL TECHNICIAN IMPRESSION: Line placement. Referred By: ?? Interpreted By: Walter Alvarez MD, 01/01/2022 8:16 PM Narrative 01/01/2022 8:17 PM SHEET METAL TECHNICIAN Exam: Chest x-ray 1947 hours Comparison 12/23/2021 [...] Alvarez MD, 01/01/2022 8:16 PM Dior Maldonado INTERNET CONSULTANT GENERAL IMAGING Final Resul t documented in [...] at 2200 New Bag 01/01/2022 11:20 PM SHEET METAL TECHNICIAN 2 g 200 mL/hr HYDROcodone-acetaminophen (NORCO) 5-325 MG tablet 1 tablet 1 tablet, Oral, Once, 1 dose, On 01/01/22 at 2100, Maximum dose of acetaminophen is 4000 mg from all sources in 24 hours. Given 01/01/2022 11:20 PM SHEET METAL TECHNICIAN 1 tablet iopamidol (ISOVUE-370) 76 % injection 80 mL 80 mL, Intravenous, IMG once as needed, Contrast, 1 dose, Starting on 01/01/22 at 2147, Until 01/01/22 at 2223 Given 01/01/2022 10:23 PM SHEET METAL TECHNICIAN 80 mLs Right Arm oxyCODONE-acetaminophen (PERCOCET) 5-325 MG tablet 1 tablet 1 tablet, Oral, Once, 1 dose, On Sun01/02/22 at 0045, Maximum dose of acetaminophen is 4000 mg from all sources in 24 hours. Given 01/02/2022 12:45 AM SHEET METAL TECHNICIAN 1 tablet documented in this encounter Active and Recently Administered Medications Times are shown in SHEET METAL TECHNICIAN. Scheduled Medication Order 12/31/2021 01/01/2022 01/02/2022 [email or web address] [...] Depression Total Score: 0 03/08/19 9:30 AM SHEET METAL TECHNICIAN documented as of this encounter Care Teams Retail Team Member Relationship Specialty Start Date End Date Abiodun Segura II, MD [address] [place] [address] PCP - General FAMILY PRACTICE 03/09/21 documented as of this encounter
--- OUTSIDE RECORDS SUMMARY | 2024-03-03 01:24 | XMS_ITS | Encounter Summary ---
Author Organization [facility] Address [address] [place] [address]. [place], [place] [id number] [place] [id number] Care Team Providers Care Capital Project Engineer Name Role Phone Colton SILVEIRA MD, Abiodun Rushing Primary Care Provider Reason for Visit * Auth/Cert Specialty Diagnoses / Procedures Referred By Lyla chaney Referred To Contact Home Health Services / [facility] Home Care [address] [place] [address] [place] [address] Phone: tel: fax: Referral ID Status Reason Start Date Expiration Date Visits Re quested Visits Authorized [id number] 1 1 Encounter Details Date Type Department Care Team (Late st Contact Info) Description 01/03/2022 11:00 AM ALIGNER BARREL AND RECEIVER Home Care Visit [facility] Home [address] [place] [address] [place] [address] Ysabel Adams RN SN HOME VISIT Social [...] Coronavirus/COVID-19? No / Unsure 01/01/2022 7:00 PM ALIGNER BARREL AND RECEIVER documented as of this encounter Last Filed Vital Signs Vital Sign Reading Time Taken Comments Blood Pressure 112/70 01/03/2022 12:17 PM ALIGNER BARREL AND RECEIVER Pulse 88 01/03/2022 12:17 PM ALIGNER BARREL AND RECEIVER Temperature 36.2 ??C (97.1 ??F) 01/03/2022 12:[address] Respiratory Rate 18 01/03/2022 12:17 PM ALIGNER BARREL AND RECEIVER Oxygen Saturation 96% 01/03/2022 12:17 PM ALIGNER BARREL AND RECEIVER Inhaled Oxygen Concentration - - Weight - [...] st Contact Info) Description 03/14/2024 11:45 AM ALIGNER BARREL AND RECEIVER Office Visit [facility] [phone] Marvin Mckeon MD [address] [place] [address] 03/20/2024 11:30 AM ALIGNER BARREL AND RECEIVER Office Visit [facility] Family [facility] - [place] [address] [place] [phone] Abiodun Segura II, MD [address] [place], [place] [phone] documented as of this encounter Visit Diagnoses Not on filedocumented in this encounter Additional Health Concerns Assessment Noted Time PHQ-9 Depression Total Score: 0 03/08/19 22 9:30 AM ALIGNER BARREL AND RECEIVER documented as of this encounter Home Health Visit - Care Plan Visit Details Visit Type -SN - Home Visit Discipline -Senior Living Problems Problem Description Start Date Status Goals [...] infection .?? Results to Dr Segura fax [phone] and IV care fax [phone]. Problem:Learning/Tea charisse Needs - IV Therapy Goal:Patient/caregiv er demonstrates ability to safely perform and/or administer IV flush Completed Obtained from PICC. Patient tolerated good. Specimen taken to [facility]. IV Administration Description: Skilled nurse and [...] in daily log. Instruct to notify physician major assembly lineman of fasting blood sugar if <70mg/dl or [...] Completed documented in this encounter Care Teams Capital Project Engineer Relationship Specialty Start Date End Date Abiodun Segura II, MD [address] [place] [id number] PCP - General FAMILY PRACTICE 03/09/21 documented as of this encounter
--- OUTSIDE RECORDS SUMMARY | 2024-03-03 01:24 | XMS_ITS | Encounter Summary ---
Author Organization [facility] Address [address] [place] [address]. [place] [address] [place] [address] Care Team Providers Care Ammunition Officer Name Role Phone Colton SILVEIRA MD, Abiodun Rushing Primary Care Provider Encounter Details Date Type Department Care Team (Late st Contact Info) Description 12/29/2021 Hospital Follow-up Call [facility] Med/Surg [address] [place] [address] Teresa Amaya RN Social History [...] st Contact Info) Description 03/14/2024 11:45 AM RESPIRATORY SUPPORT TECHNICIAN Office Visit [facility]-[address] [phone] Marvin Mckeon MD [facility] [place] [address] 03/20/2024 11:30 AM RESPIRATORY SUPPORT TECHNICIAN Office Visit [facility] Family Medicine - [place] [phone] Abiodun Segura II, MD [address] [place] [phone] documented as of this encounter Visit Diagnoses Not on filedocumented in this encounter Additional Health Concerns Assessment Noted Time PHQ-9 Depression Total Score: 0 03/08/19 9:30 AM RESPIRATORY SUPPORT TECHNICIAN documented as of this encounter Care Teams Ammunition Officer Relationship Specialty Start Date End Date Abiodun Segura II, MD [address] [place] [address] PCP - General FAMILY PRACTICE 03/09/21 documented as of this encounter
--- OUTSIDE RECORDS SUMMARY | 2024-03-03 01:25 | XMS_ITS | Encounter Summary ---
Author Organization [facility] Address [address] [place] [address]. [place] [address] [place] [address] Care Team Providers Care Redrawer Name Role Phone Colton SILVEIRA MD, Yasmin Rushing Primary Care Provider Reason for Referral * Surgical (Routine) - Closed Specialty Diagnoses / Procedures Referred By Contxavier t Referred To Contact Diagnoses Diabetic foot infection ([facility]/HCC HHS/HCC) Procedures Case request operating room: INCISION AND DRAINAGE ANKLE Hubert Cheek DPM [address] [place] [address] Phone: tel: fax: Referral ID Status Reason Start Date Expiration Date Visits Re quested Visits Authorized [id number] Closed 12/21/2021 12/21/2022 1 1 * Imaging (Urgent) - Closed Specialty Diagnoses / Procedures Referred By Contac t Referred To Contact RADIOLOGY Procedures MRI FOOT LT WO CON Eduardo Aguillon, [place] [address] Phone: tel: fax: Referral ID Status Reason Start Date Expiration Date Visits Re quested Visits Authorized [id number] Closed 12/18/2021 12/18/2022 1 1 * Imaging (Urgent) - Closed Specialty Diagnoses / Procedures Referred By Contac t Referred To Contact RADIOLOGY Procedures MRI FOOT RT WO CON Wanda Mercer APRN [address] [place] [address] Phone: tel: fax: Referral ID Status Reason Start Date Expiration Date Visits Re quested Visits Authorized [id number] Closed 12/16/2021 12/16/2022 1 1 * Imaging (Emergency) - Closed Specialty Diagnoses / Procedures Referred By Contac t Referred To Contact RADIOLOGY Procedures USV ART REST W ADRIANA LOW EXT USV ART DUPLEX+ADRIANA LOW NOHEMY Desiree Mackenzie MD [address] [place] [address] Phone: tel: fax: Referral ID Status Reason Start Date Expiration Date Visits Re quested Visits Authorized [id number] Closed 12/16/2021 12/16/2022 1 1 Reason for Visit * Reason Comments Foot Pain * Auth/Cert Specialty Diagnoses / Procedures Referred By Contac t Referred To Contact Diagnoses Hypokalemia Diabetic foot ulcer (CMS/HCC HHS/HCC) Diabetic foot infection (CMS/HCC HHS/HCC) Diabetic foot infection (CMS/HCC) Procedures NONE Wanda Prado MD [address] [place] [address] Phone: tel:[phone] fax: Referral ID Status Reason Start Date Expiration Date Visits Re quested Visits Authorized [id number] 1 1 Encounter Details Date Type Department Care Team (Latest Contact Info) Description 12/16/2021 1:48 PM CDT - 12/26/2021 4:11 PM FIELD CANE SCALE CLERK Hospital Encounter [facility] Med/Surg [address]rd [place] [address] Desiree Mackenzie MD [address] [place], [place] [id number] Wanda Prado MD [address] [place] [address] [phone] (Work) David Schofield PA-C [address] [place], [place] [address] [phone] (Work) Eduardo Aguillon APRN [address] [place], [place] [address] Roxana Chandler APNP [address] [place] [address] Foot Pain Discharge Disposition: Home with Home [...] Comments Blood Pressure 140/81 12/26/2021 8:20 AM FIELD CANE SCALE CLERK Pulse 87 12/26/2021 8:20 AM FIELD CANE SCALE CLERK Temperature 36.6 ??C (97.9 ??F) 12/26/2021 8:20 AM CS T Respiratory Rate 18 12/26/2021 4:29 AM FIELD CANE SCALE CLERK Oxygen Saturation 100% 12/26/2021 8:20 AM FIELD CANE SCALE CLERK Inhaled Oxygen Concentration - - Weight 83.5 kg (184 lb 1.4 oz) 12/25/2021 4:57 A M FIELD CANE SCALE CLERK Height 167.6 cm (5' 6 ) 12/16/2021 [...] [facility] Hospital Diagnosis: Diabetic foot infection ([facility]) Admission Condition: poor Discharged Condition: Good [...] an evaluation of her right foot per supervisor propellant charge loading recommendations as he was concerned about osteomyelitis. [...] LOWER EXTREMITY VASCULAR LAB Pat.Name: TYSON MCNEAL Pat.ID:[id number] .Date: 12/16/2021 Refer.MD: Yasmin Segura Exam Time: 2:52:00 PM Study Type:MARINO VS Arterial Doppler Legs NOHEMY Height: 66in Age: 2 1970,51Y Sex: FEMALE Sonogrphr: Shahla Toscaon RDMS, RVT Pat. Stat.:Outpatient Room: ER History / Clinical: Rt foot wounds. L>R severe leg pain. Lt foot cool to touch with weak pulse. PMH- DM. HTN. HLD. neurop. L2, L3 amp. BMI 39. Prior 06/21/21- Rt 1.12, Lt 1.24 Procedures: Doppler waveforms, Digit PPG, Systolic Pressures w/ADRIANA Race: -[place] ++++++++++++++++++++++++++++++++++++ SUMMARY: ++++++++++++++++++++++++++++++++++++ Joceline ADRIANA Criteria: >1.30 [...] ++++++++++++++++++++++++++++++++++++ FINDINGS: ++++++++++++++++++++++++++++++++++++++++++++++++++++++++++++++++++++++++ MEASUREMENTS: ++++++++++++++++++++++++++++++++++++ DOPPLER Left PIECE DYEING MACHINE TENDER PIECE DYEING MACHINE TENDER PSV 123 cm/s Left Dist Pop A Dist Pop A PSV 94.2 cm/s Left Dist PANTOGRAPH TRANSFERRER Dist PANTOGRAPH TRANSFERRER PSV 46.2 cm/s Left Dist DOMINGA Dist DOMINGA PSV 56.5 cm/s Right PIECE DYEING MACHINE TENDER PIECE DYEING MACHINE TENDER PSV 145 cm/s Right Dist Pop A Dist Pop A PSV 107 cm/s Right Dist PANTOGRAPH TRANSFERRER Dist PANTOGRAPH TRANSFERRER PSV 56.5 cm/s Right Dist DOMINGA Dist [...] 12/16/21 ECG 12 lead ?? Narrative ?? 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 House Nurse patient on possible adverse effects of ABX [...] Major Edmond MD at 12/26/2021 8:11 PM FIELD CANE SCALE CLERK D CANE SCALE CLERK D CANE SCALE CLERK documented in this encounter Discharge Instructions * Attachments The following attachments cannot be sent through Care Everywhere. * Diabetic Foot Ulcer Discharge Instructions (French) documented in this encounter Medications at Time [...] arthropathy, with long-term current use of insulin ([facility] HHS/HCC) Inject 3 mg into the skin weekly. 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, with long-term current use of insulin ([facility] HHS/HCC) USE 1 STRIP TO CHECK GLUCOSE TWICE DAILY 200 strip 3 2 01/02/20 22 HUMALOG MIX 75/25 (75-25) 100 UNIT/ML SuspensionIndicatio ns:Type 2 diabetes mellitus with retinopathy, with long-term current use of insulin, macular edema presence unspecified, unspecified laterality, unspecified retinopathy severity ([facility]/HCC HHS/HCC) Inject 60 units ;subcutaneously in the [...] arthropathy, with long-term current use of insulin ([facility]) USE 1 SYRINGE SUBCUTANEOUSLY TWICE [...] from Medicare (Subsequent IMM) Signed Copy delivered D CANE SCALE CLERK * David Grimes RN - 12/26/2021 2:35 [...] for this hospitalization Outcome: Adequate for Discharge D CANE SCALE CLERK * Shana Martinez, TONSORIAL ARTIST - 12/26/2021 2:00 PM CST Spoke with Arelis at [facility], nurse will be here around 2:00 to complete a teaching with patient and daughter. [facility] has accepted and will see patient tomorrow. [...] to: Home DME Needed at Discharge No D CANE SCALE CLERK * ELLEN Justice - 12/26/2021 10:13 AM [...] COLOR (U) LIGHT YELLOW TRANSPARENCY CLEAR Specific [place] (U) 1.024 1.001 - 1.030 U PH [...] EXTREMITY VASCULAR LAB Pat.Name: TYSON MCNEAL Pat.ID: [id number] .Date: 12/16/2021 Refer.MD: Yasmin Segura Exam Time: [...] waveforms, Digit PPG, Systolic Pressures w/ADRIANA Race: -[place] ++++++++++++++++++++++++++++++++++++ SUMMARY: ++++++++++++++++++++++++++++++++++++ Joceline ADRIANA Criteria: >1.30 [...] ++++++++++++++++++++++++++++++++++++ FINDINGS: ++++++++++++++++++++++++++++++++++++++++++++++++++++++++++++++++++++++++ MEASUREMENTS: ++++++++++++++++++++++++++++++++++++ DOPPLER Left PIECE DYEING MACHINE TENDER PIECE DYEING MACHINE TENDER PSV 123 cm/s Left Dist Pop A Dist Pop A PSV 94.2 cm/s Left Dist PANTOGRAPH TRANSFERRER Dist PANTOGRAPH TRANSFERRER PSV 46.2 cm/sLeft Dist DOMINGA Dist DOMINGA PSV 56.5 cm/s Right PIECE DYEING MACHINE TENDER PIECE DYEING MACHINE TENDER PSV 145 cm/s Right Dist Pop A Dist Pop A PSV 107cm/s Right Dist PANTOGRAPH TRANSFERRER Dist PANTOGRAPH TRANSFERRER PSV 56.5 cm/s Right Dist DOMINGA Dist [...] of 12/16/21 ECG 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 House Nurse patient on possible adverse effects of ABX [...] Major Edmond MD at 12/26/2021 8:11 PM FIELD CANE SCALE CLERK D CANE SCALE CLERK D CANE SCALE CLERK * Carlos Alberto Pacheco RN - 12/26/2021 [...] Goal: Reduced Risk of Polypharmacy Outcome: Progressing D CANE SCALE CLERK * Kortney Elias RN - 12/25/2021 6:33 [...] Goal: Reduced Risk of Polypharmacy Outcome: Progressing D CANE SCALE CLERK * Erika Josue LCSW - 12/25/2021 3:26 PM CST Pt and spouse seen this date. [facility] SW contactedthe [facility] intake group and Rachel Pena with [facility] weekend staffing regarding the referral. They are [...] CM resuming care tomorrow and will finalizeplans. D CANE SCALE CLERK * ELLEN Justice - 12/25/2021 2:46 PM [...] COLOR (U) LIGHT YELLOW TRANSPARENCY CLEAR Specific [place] (U) 1.024 1.001 - 1.030 U PH [...] LOWER EXTREMITY VASCULAR LAB Pat.Name: TYSON MCNEAL Pat.ID:[id number] .Date: 12/16/2021 Refer.MD: Yasmin Segura Exam Time: [...] waveforms, Digit PPG, Systolic Pressures w/ADRIANA Race: -[place] ++++++++++++++++++++++++++++++++++++ SUMMARY: ++++++++++++++++++++++++++++++++++++ Joceline ADRIANA Criteria: >1.30 [...] ++++++++++++++++++++++++++++++++++++ FINDINGS: ++++++++++++++++++++++++++++++++++++++++++++++++++++++++++++++++++++++++ MEASUREMENTS: ++++++++++++++++++++++++++++++++++++ DOPPLER Left PIECE DYEING MACHINE TENDER PIECE DYEING MACHINE TENDER PSV 123 cm/s Left Dist Pop A Dist Pop A PSV 94.2 cm/s Left Dist PANTOGRAPH TRANSFERRER Dist PANTOGRAPH TRANSFERRER PSV 46.2 cm/sLeft Dist DOMINGA Dist DOMINGA PSV 56.5 cm/s Right PIECE DYEING MACHINE TENDER PIECE DYEING MACHINE TENDER PSV 145 cm/s Right Dist Pop A Dist Pop A PSV 107cm/s Right Dist PANTOGRAPH TRANSFERRER Dist PANTOGRAPH TRANSFERRER PSV 56.5 cm/s Right Dist DOMINGA Dist [...] encounter of 12/16/21 ECG 12 lead Narrative [address] Test Date: 2021-12-16 Pat Name: TYSON MCNEAL Department: Room: 4 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 House Nurse patient on possible adverse effects of ABX [...] Major Edmond MD at 12/25/2021 8:54 PM FIELD CANE SCALE CLERK D CANE SCALE CLERK D CANE SCALE CLERK * ELLEN Justice - 12/24/2021 2:42 PM [...] COLOR (U) LIGHT YELLOW TRANSPARENCY CLEAR Specific [place] (U) 1.024 1.001 - 1.030 U PH [...] EXTREMITY VASCULAR LAB Pat.Name: TYSON MCNEAL Pat.ID: [id number] .Date: 12/16/2021 Refer.: Yasmin Segura Exam Time: 2:52:00 PM Study Type:MARINO VS Arterial Doppler Legs NOHEMY Height: 66in Age: 2 1970,51Y Sex: FEMALE Sonogrphr: Shahla Toscano RDIN, RVT Pat. Stat.:Outpatient Room: ER History / Clinical: Rt foot wounds. L>R severe leg pain. Lt foot cool to touch with weak pulse. PMH- DM. HTN. HLD. neurop. L2, L3 amp. BMI 39. Prior 06/21/21- Rt 1.12, Lt 1.24 Procedures: Doppler waveforms, Digit PPG, Systolic Pressures w/ADRIANA Race: -[place] ++++++++++++++++++++++++++++++++++++ SUMMARY: ++++++++++++++++++++++++++++++++++++ Joceline ADRIANA Criteria: >1.30 [...] ++++++++++++++++++++++++++++++++++++ FINDINGS: ++++++++++++++++++++++++++++++++++++++++++++++++++++++++++++++++++++++++ MEASUREMENTS: ++++++++++++++++++++++++++++++++++++ DOPPLER Left PIECE DYEING MACHINE TENDER PIECE DYEING MACHINE TENDER PSV 123 cm/s Left Dist Pop A Dist Pop A PSV 94.2 cm/s Left Dist PANTOGRAPH TRANSFERRER Dist PANTOGRAPH TRANSFERRER PSV 46.2 cm/s Left Dist DOMINGA Dist DOMINGA PSV 56.5 cm/s Right PIECE DYEING MACHINE TENDER PIECE DYEING MACHINE TENDER PSV 145 cm/s Right Dist Pop A Dist Pop A PSV 107 cm/s Right Dist PANTOGRAPH TRANSFERRER Dist PANTOGRAPH TRANSFERRER PSV 56.5 cm/s Right Dist DOMINGA Dist [...] encounter of 12/16/21 ECG 12 lead Narrative [place] Test Date: 2021-12-16 Pat Name: TYSON MCNEAL Department: Room: 4 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 House Nurse patient on possible adverse effects of ABX and PICC line Discussed with CM, to find [facility] Diabetic foot wound, left 4th digit [...] pt she does want to go home. Finisher Operator has provided a complete list of the following types of agencies, HHC and Infusion Services. , to Patient utilizing the Silvervue tablet. I have explainedthat the tablets will display becerril quality metrics along with any entity in which [facility] has a vested i nterest to disclose [...] toe amputations of left foot ordered vancomycin opcrxcxn-am-fhdh for diabetic foot infection. Patient received a [...] toe amputations of left foot ordered vancomycin civrqcyj-lx-npsp for diabetic foot infection. Patient received a [...] Salma Martinez PharmD, BCPS * Shana Martinez, TONSORIAL ARTIST - 12/23/2021 3:56 PM CDT 12/23 Discussed [...] COLOR (U) LIGHT YELLOW TRANSPARENCY CLEAR Specific [place] (U) 1.024 1.001 - 1.030 U PH [...] EXTREMITY VASCULAR LAB Pat.Name: TYSON MCNEAL Pat.ID: [id number] .Date: 12/16/2021 Refer.MD: Yasmin Segura Exam Time: [...] waveforms, Digit PPG, Systolic Pressures w/ADRIANA Race: -[place] ++++++++++++++++++++++++++++++++++++ SUMMARY: ++++++++++++++++++++++++++++++++++++ Joceline ADRIANA Criteria: >1.30 [...] FINDINGS: ++++++++++++++++++++++++++++++++++++ ++++++++++++++++++++++++++++++++++++ MEASUREMENTS: ++++++++++++++++++++++++++++++++++++ DOPPLER Left PIECE DYEING MACHINE TENDER PIECE DYEING MACHINE TENDER PSV 123 cm/s Left Dist Pop A Dist Pop A PSV 94.2 cm/s Left Dist PANTOGRAPH TRANSFERRER Dist PANTOGRAPH TRANSFERRER PSV 46.2 cm/s Left Dist DOMINGA Dist DOMINGA PSV 56.5 cm/s Right PIECE DYEING MACHINE TENDER PIECE DYEING MACHINE TENDER PSV 145 cm/s Right Dist Pop A Dist Pop A PSV 107 cm/s Right Dist PANTOGRAPH TRANSFERRER Dist PANTOGRAPH TRANSFERRER PSV 56.5 cm/s Right Dist DOMINGA Dist [...] encounter of 12/16/21 ECG 12 lead Narrative [place] Test Date: 2021-12-16 Pat Name: TYSON MCNEAL Department: 41 Room: 4 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1970 Requested By: DESIREE MACKENZIE Order Number: [id number] Bala MD: Carroll Varela Measurements Intervals [place] Rate: 89 P: 34 MD: 160 QRS: 15 QRSD: 87 T: 102 [...] Trulicity Continue home basal insulin accu checks [facility]-s/s protocol A1c=7.7 on 12/08/21 Pt had hypoglycemic [...] Darian SOUSA, RN, EMTP * Shana Martinez TONSORIAL ARTIST - 12/22/2021 3:51 PM CDT 12/22 Awaiting [...] COLOR (U) LIGHT YELLOW TRANSPARENCY CLEAR Specific [place] (U) 1.024 1.001 - 1.030 U PH [...] EXTREMITY VASCULAR LAB Pat.Name: TYSON MCNEAL Pat.ID: [id number] .Date: 12/16/2021 Refer.MD: Yasmin Segura Exam Time: 2:52:00 PM Study Type:MARINO VS Arterial Doppler Legs NOHEMY Height: 66in Age: 2 1970,51Y Sex: FEMALE Sonogrphr: Shahla Toscano RDIN, RVT Pat. Stat.:Outpatient Room: ER History / Clinical: Rt foot wounds. L>R severe leg pain. Lt foot cool to touch with weak pulse. PMH- DM. HTN. HLD. neurop. L2, L3 amp. BMI 39. Prior 06/21/21- Rt 1.12, Lt 1.24 Procedures: Doppler waveforms, Digit PPG, Systolic Pressures w/ADRIANA Race: -[place] ++++++++++++++++++++++++++++++++++++ SUMMARY: ++++++++++++++++++++++++++++++++++++ Joceline ADRIANA Criteria: >1.30 [...] ++++++++++++++++++++++++++++++++++++ FINDINGS: ++++++++++++++++++++++++++++++++++++++++++++++++++++++++++++++++++++++++ MEASUREMENTS: ++++++++++++++++++++++++++++++++++++ DOPPLER Left PIECE DYEING MACHINE TENDER PIECE DYEING MACHINE TENDER PSV 123 cm/s Left Dist Pop A Dist Pop A PSV 94.2 cm/s Left Dist PANTOGRAPH TRANSFERRER Dist PANTOGRAPH TRANSFERRER PSV 46.2 cm/s Left Dist DOMINGA Dist DOMINGA PSV 56.5 cm/s Right PIECE DYEING MACHINE TENDER PIECE DYEING MACHINE TENDER PSV 145 cm/s Right Dist Pop A Dist Pop A PSV 107 cm/s Right Dist PANTOGRAPH TRANSFERRER Dist PANTOGRAPH TRANSFERRER PSV 56.5 cm/s Right Dist DOMINGA Dist [...] encounter of 12/16/21 ECG 12 lead Narrative [address] Test Date: 2021-12-16 Pat Name: TYSON MCNEAL Department: 41 Room: 4 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 Patient received a [...] mg 20 mg Oral Daily Wanda Mercer CHANGE COORDINATOR 20 mg at 12/21/21 0913 ??? bisacodyl (DULCOLAX) suppository 10 mg 10 mg Rectal Daily PRN Wanda Mercer CHANGE COORDINATOR ??? bisacodyl EC (DULCOLAX) tablet 5 mg 5 mg Oral Daily PRN Wanda Mercer CHANGE COORDINATOR ??? cefTRIAXone (ROCEPHIN) 1 g in sodium chloride 0.9 % 50 mL IVPB 1 g Intravenous Q24H Wanda Mercer CHANGE COORDINATOR Stopped at 12/21/21 1514 ??? chlorhexidine (PERIDEX) 0.12 % solution 15 mL 15 mL Mouth/Throat PRN Hubert Cheek DPRonnie ??? cyclobenzaprine (FLEXERIL) tablet 10 mg 10 mg Oral TID PRN Wanda Mercer CHANGE COORDINATOR ??? dextrose 10 % bolus infusion 125-250 mL 125-250 mL Intravenous PRN Wanda Mercer CHANGE COORDINATOR ??? docusate sodium (COLACE) capsule 100 mg 100 mg Oral BID David Schofield PA-C 100 mg at 12/20/21 0919 ??? glucagon injection 1 mg 1 mg Intramuscular Once PRN Wanda Mercer CHANGE COORDINATOR ??? glucose oral gel 32-64 mL 15-30 g of dextrose Oral PRN Wanda Mercer CHANGE COORDINATOR ??? heparin (porcine) injection 5,000 Units 5,000 Units Subcutaneous 2 times per day Wanda Mercer APRN 5,000 Units at 12/21/212032 ??? HYDROcodone-acetaminophen (NORCO) 5-325 MG tablet 1 tablet 1 tablet Oral Q6H PRN Eduardo Aguillon APRN 1 tablet at 12/21/21 1904 ??? hydrOXYzine (VISTARIL) capsule 25 mg 25 mg Oral Nightly at bedtime Wanda Mercer CHANGE COORDINATOR 25 mg at 12/21/212032 ??? insulin glargine [...] Subcutaneous Nightly at bedtime Linolee Stephen Aguillon, CHANGE COORDINATOR 7 Units at 12/21/212031 ??? lactated ringers [...] 8.6 mg Oral Nightly at bedtime David Schoifeld PA-C 8.6 mg at 12/18/212032 ??? Tdap [...] Bone biopsy pending. HUBERT HERNANDEZ MD 12/21/2021 D CANE SCALE CLERK * Salma Martinez PharmD - 12/21/2021 4:12 [...] toe amputations of left foot ordered vancomycin qzrugzjw-uf-cnnf for diabetic foot infection. Patient received a [...] Salma Martinez PharmD, BCPS * Shana Martinez, TONSORIAL ARTIST - 12/21/2021 3:58 PM CDT 12/21 Discussed [...] COLOR (U) LIGHT YELLOW TRANSPARENCY CLEAR Specific [place] (U) 1.024 1.001 - 1.030 U PH [...] EXTREMITY VASCULAR LAB Pat.Name: TYSON MCNEAL Pat.ID: [id number] .Date: 12/16/2021 Refer.MD: Yasmin Segura Exam Time: [...] waveforms, Digit PPG, Systolic Pressures w/ADRIANA Race: -[place] ++++++++++++++++++++++++++++++++++++ SUMMARY: ++++++++++++++++++++++++++++++++++++ Joceline ADRIANA Criteria: >1.30 [...] FINDINGS: ++++++++++++++++++++++++++++++++++++ ++++++++++++++++++++++++++++++++++++ MEASUREMENTS: ++++++++++++++++++++++++++++++++++++ DOPPLER Left PIECE DYEING MACHINE TENDER PIECE DYEING MACHINE TENDER PSV 123 cm/s Left Dist Pop A Dist Pop A PSV 94.2 cm/s Left Dist PANTOGRAPH TRANSFERRER Dist PANTOGRAPH TRANSFERRER PSV 46.2 cm/s Left Dist DOMINGA Dist DOMINGA PSV 56.5 cm/s Right PIECE DYEING MACHINE TENDER PIECE DYEING MACHINE TENDER PSV 145 cm/s Right Dist Pop A Dist Pop A PSV 107 cm/s Right Dist PANTOGRAPH TRANSFERRER Dist PANTOGRAPH TRANSFERRER PSV 56.5 cm/s Right Dist DOMINGA Dist [...] encounter of 12/16/21 ECG 12 lead Narrative [place] Test Date: 2021-12-16 Pat Name: TYSON MCNEAL Department: 41 Room: 4 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 Patient received a [...] mg Oral Q4H PRN Eduardo R Anastasiyat, CHANGE COORDINATOR ??? amLODIPine (NORVASC) tablet 10 mg 10 mg Oral nightly Crystal M Kian, CHANGE COORDINATOR 10 mg at 12/19/21 2158 ??? atorvastatin (LIPITOR) tablet 20 mg 20 mg Oral Daily Crystal M Brown, CHANGE COORDINATOR 20 mg at 12/20/21918 ??? bisacodyl (DULCOLAX) suppository 10 mg 10 mg Rectal Daily PRN Crystal Ronnie Mercer, CHANGE COORDINATOR ??? bisacodyl EC (DULCOLAX) tablet 5 mg 5 mg Oral Daily PRN Crystal Ronnie Mercer, CHANGE COORDINATOR ??? cefTRIAXone (ROCEPHIN) 1 g in sodium chloride 0.9 % 50 mL IVPB 1 g Intravenous Q24H Crystal Ronnie Mercer, CHANGE COORDINATOR Stopped at 12/20/21 1337 ??? cyclobenzaprine (FLEXERIL) tablet 10 mg 10 mg Oral TID PRN Crystal Ronnie Mercer, CHANGE COORDINATOR ??? dextrose 10 % bolus infusion 125-250 mL 125-250 mL Intravenous PRN Crystal Ronnie Mercer, CHANGE COORDINATOR ??? docusate sodium (COLACE) capsule 100 mg 100 mg Oral BID David Schofield PA-C 100 mg at 12/20/21918 ??? glucagon injection 1 mg 1 mg Intramuscular Once PRN Crystal Ronnie Mercer, CHANGE COORDINATOR ??? glucose oral gel 32-64 mL 15-30 g of dextrose Oral PRN Crystal Ronnie Mercer, CHANGE COORDINATOR ??? heparin (porcine) injection 5,000 Units 5,000 Units Subcutaneous 2 times per day Crystal Ronnie Mercer, CHANGE COORDINATOR 5,000 Units at 12/20/21918 ??? hydroCHLOROthiazide (HYDRODIURIL) tablet 25 mg 25 mg Oral QAM Crystal Ronnie Mercer, CHANGE COORDINATOR 25 mg at 12/20/21918 ??? HYDROcodone-acetaminophen (NORCO) 5-325 MG tablet 1 tablet 1 tablet Oral Q6H PRN Eduardo R Anastasiyat, CHANGE COORDINATOR ??? hydrOXYzine (VISTARIL) capsule 25 mg 25 mg Oral Nightly at bedtime Wanda Ronnie Kian CHANGE COORDINATOR 25 mg at 12/19/212200 ??? insulin glargine (LANTUS) injection 12 Units 0.125 Units/kg Subcutaneous Nightly at bedtime Eduardo Aguillon, CHANGE COORDINATOR ??? insulin lispro (HUMALOG) injection 0-16 Units 0-16 Units Subcutaneous TID AC Eduardo Aguillon, CHANGE COORDINATOR And ??? insulin lispro (HUMALOG) injection 0-8 Units 0-8 Units Subcutaneous Nightly at bedtime Eduardo Aguillon, CHANGE COORDINATOR ??? linaCLOtide (LINZESS) capsule 145 mcg 145 mcg Oral QAM AC Roxana Chandler APSUSAN ??? lisinopril (PRINIVIL) tablet 40 mg 40 mg Oral QPM Wanda Ronnie YENI Mercer 40 mg at 12/19/212157 ??? morphine injection 1 mg 1 mg Intravenous Q3H PRN Wanda Ronnie Kian CHANGE COORDINATOR 1 mg at 12/19/212157 ??? naLOXone (NARCAN) injection 0.4 mg 0.4 mg Intravenous PRN Wanda Ronnie Kian CHANGE COORDINATOR ??? pantoprazole EC (PROTONIX) tablet 40 mg [...] (XELLIA) 1,250 mg Intravenous Q24H Eduardo Aguillon, CHANGE COORDINATOR Stopped at 12/19/21 2345 ??? vancomycin pharmacy to dose placeholder Intravenous See Admin Instructions Wanda Ronnie Kian, CHANGE COORDINATOR Allergies Allergen Reactions ??? Fish Oil Unknown [...] 1.990 07/09/2021 Principal Problem: Diabetic foot infection (CMS/[facility]) SNOMED CT(R): INFECTION OF FOOT DUE TO DIABETES MELLITUS Plan: Will consult podiatry for bone biopsy. HUBERT HERNANDEZ MD 12/20/2021 * Shana Martinez, TONSORIAL ARTIST - 12/20/2021 3:55 PM CDT 12/20 Discussed in rounds, awaiting MRI and vascular surgery recommendations cw * Narda Sanchez RN - 12/20/2021 3:36 PM CDT This RN called MRI to check on possible time for Lety's Left foot MRI. This RN was told that [facility] department has had to fit the [...] COLOR (U) LIGHT YELLOW TRANSPARENCY CLEAR Specific [place] (U) 1.024 1.001 - 1.030 U PH [...] EXTREMITY VASCULAR LAB Pat.Name: TYSON MCNEAL Pat.ID: [id number] .Date: 12/16/2021 Refer.MD: Yasmin Segura Exam Time: [...] waveforms, Digit PPG, Systolic Pressures w/ADRIANA Race: -[place] ++++++++++++++++++++++++++++++++++++ SUMMARY: ++++++++++++++++++++++++++++++++++++ Joceline ADRIANA Criteria: >1.30 [...] FINDINGS: ++++++++++++++++++++++++++++++++++++ ++++++++++++++++++++++++++++++++++++ MEASUREMENTS: ++++++++++++++++++++++++++++++++++++ DOPPLER Left PIECE DYEING MACHINE TENDER PIECE DYEING MACHINE TENDER PSV 123 cm/s Left Dist Pop A Dist Pop A PSV 94.2 cm/s Left Dist PANTOGRAPH TRANSFERRER Dist PANTOGRAPH TRANSFERRER PSV 46.2 cm/s Left Dist DOMINGA Dist DOMINGA PSV 56.5 cm/s Right PIECE DYEING MACHINE TENDER PIECE DYEING MACHINE TENDER PSV 145 cm/s Right Dist Pop A Dist Pop A PSV 107 cm/s Right Dist PANTOGRAPH TRANSFERRER Dist PANTOGRAPH TRANSFERRER PSV 56.5 cm/s Right Dist DOMINGA Dist [...] encounter of 12/16/21 ECG 12 lead Narrative [address] Test Date: 2021-12-16 Pat Name: TYSON MCNEAL Department: 41 Room: 4 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1970 Requested By: DESIREE MACKENZIE Order Number: [id number] Bala MD: Carroll Varela Measurements Intervals [place] Rate: 89 P: 34 MD: 160 QRS: 15 QRSD: 87 T: 102 [...] COLOR (U) LIGHT YELLOW TRANSPARENCY CLEAR Specific [place] (U) 1.024 1.001 - 1.030 U PH [...] EXTREMITY VASCULAR LAB Pat.Name: TYSON MCNEAL Pat.ID: [id number] .Date: 12/16/2021 Refer.MD: Yasmin Segura Exam Time: [...] Procedures: Doppler waveforms, Digit PPG, Systolic Pressures w/ADRIAAN Race: -[place] ++++++++++++++++++++++++++++++++++++ SUMMARY: ++++++++++++++++++++++++++++++++++++ Joceline ADRIANA Criteria: >1.30 [...] ++++++++++++++++++++++++++++++++++++ FINDINGS: ++++++++++++++++++++++++++++++++++++++++++++++++++++++++++++++++++++++++ MEASUREMENTS: ++++++++++++++++++++++++++++++++++++ DOPPLER Left PIECE DYEING MACHINE TENDER PIECE DYEING MACHINE TENDER PSV 123 cm/s Left Dist Pop A Dist Pop A PSV 94.2 cm/s Left Dist PANTOGRAPH TRANSFERRER Dist PANTOGRAPH TRANSFERRER PSV 46.2 cm/sLeft Dist DOMINGA Dist DOMINGA PSV 56.5 cm/s Right PIECE DYEING MACHINE TENDER PIECE DYEING MACHINE TENDER PSV 145 cm/s Right Dist Pop A Dist Pop A PSV 107cm/s Right Dist PANTOGRAPH TRANSFERRER Dist PANTOGRAPH TRANSFERRER PSV 56.5 cm/s Right Dist DOMINGA Dist [...] encounter of 12/16/21 ECG 12 lead Narrative [place] Test Date: 2021-12-16 Pat Name: TYSON MCNEAL Department: Room: 4 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 Patient received a [...] to monitor daily. * Eduardo Mitchell Oscar, CHANGE COORDINATOR - 12/18/2021 8:49 AM CDT Hospitalist Daily [...] COLOR (U) LIGHT YELLOW TRANSPARENCY CLEAR Specific [place] (U) 1.024 1.001 - 1.030 U PH [...] LOWER EXTREMITY VASCULAR LAB Pat.Name: TYSON MCNEAL Pat.ID:[id number] .Date: 12/16/2021 Refer.MD: Yasmin Segura Exam Time: [...] waveforms, Digit PPG, Systolic Pressures w/ADRIANA Race: -[place] ++++++++++++++++++++++++++++++++++++ SUMMARY: ++++++++++++++++++++++++++++++++++++ Joceline ADRIANA Criteria: >1.30 [...] ++++++++++++++++++++++++++++++++++++ FINDINGS: ++++++++++++++++++++++++++++++++++++++++++++++++++++++++++++++++++++++++ MEASUREMENTS: ++++++++++++++++++++++++++++++++++++ DOPPLER Left PIECE DYEING MACHINE TENDER PIECE DYEING MACHINE TENDER PSV 123 cm/s Left Dist Pop A Dist Pop A PSV 94.2 cm/s Left Dist PANTOGRAPH TRANSFERRER Dist PANTOGRAPH TRANSFERRER PSV 46.2 cm/s Left Dist DOMINGA Dist DOMINGA PSV 56.5 cm/s Right PIECE DYEING MACHINE TENDER PIECE DYEING MACHINE TENDER PSV 145 cm/s Right Dist Pop A Dist Pop A PSV 107 cm/s Right Dist PANTOGRAPH TRANSFERRER Dist PANTOGRAPH TRANSFERRER PSV 56.5 cm/s Right Dist DOMINGA Dist [...] encounter of 12/16/21 ECG 12 lead Narrative [address] Test Date: 2021-12-16 Pat Name: TYSON MCNEAL Department: Room: 4 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 Will continue vancomycin therapy [id number] mg every 24 hours. A trough will [...] COLOR (U) LIGHT YELLOW TRANSPARENCY CLEAR Specific [place] (U) 1.024 1.001 - 1.030 U PH [...] EXTREMITY VASCULAR LAB Pat.Name: TYSON MCNEAL Pat.ID: [id number] St.Date: 12/16/2021 Refer.MD: Yasmin Segura Exam Time: 2:52:00 PM Study Type:MARINO VS Arterial Doppler Legs NOHEMY Height: 66in Age: 2 1970,51Y Sex: FEMALE Sonogrphr: Shahla Toscano [facility], RVT Pat. Stat.:Outpatient Room: ER History / Clinical: Rt foot wounds. L>R severe leg pain. Lt foot cool to touch with weak pulse. PMH- DM. HTN. HLD. neurop. L2, L3 amp. BMI 39. Prior 06/21/21- Rt 1.12, Lt 1.24 Procedures: Doppler waveforms, Digit PPG, Systolic Pressures w/ADRIANA Race: -[place] ++++++++++++++++++++++++++++++++++++ SUMMARY: ++++++++++++++++++++++++++++++++++++ Joceline ADRIANA Criteria: >1.30 [...] ++++++++++++++++++++++++++++++++++++ FINDINGS: ++++++++++++++++++++++++++++++++++++++++++++++++++++++++++++++++++++++++ MEASUREMENTS: ++++++++++++++++++++++++++++++++++++ DOPPLER Left PIECE DYEING MACHINE TENDER PIECE DYEING MACHINE TENDER PSV 123 cm/s Left Dist Pop A Dist Pop A PSV 94.2 cm/s Left Dist PANTOGRAPH TRANSFERRER Dist PANTOGRAPH TRANSFERRER PSV 46.2 cm/sLeft Dist DOMINGA Dist DOMINGA PSV 56.5 cm/s Right PIECE DYEING MACHINE TENDER PIECE DYEING MACHINE TENDER PSV 145 cm/s Right Dist Pop A Dist Pop A PSV 107cm/s Right Dist PANTOGRAPH TRANSFERRER Dist PANTOGRAPH TRANSFERRER PSV 56.5 cm/s Right Dist DOMINGA Dist [...] of 12/16/21 ECG 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 Please consult case management associate should needs arise [place] to [place]. * Yasmin Zuniga, RudiD, [facility] - 12/16/2021 8:25 PM CDT Vancomycin Pharmacy [...] to ER at the instruction of her supervisor propellant charge loading who is concerned for infection to right [...] increased pain and was evaluated per her supervisor propellant charge loading who observed yellow pus-like drainage. She denies [...] No results for input(s): PH, PCO2, PO2, [id number], BICARBWB, BASEDEFICIT, BASEEXCESS in the acxc595 hours. 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 amLODIPine (NORVASC) tablet 10 mg, 10 mg, Oral, nightly, Roxana Chandler, APNP, 10 mg at 12/23/211999 ??? atorvastatin (LIPITOR) tablet 20 mg, 20 mg, Oral, Daily, Wanda Mercer APRN, 20 mg at 12/24/21 0919 ??? bisacodyl (DULCOLAX) suppository 10 mg, 10 mg, Rectal, Daily PRN, Wanda Mercer CHANGE COORDINATOR ??? bisacodyl EC (DULCOLAX) tablet 5 mg, 5 mg, Oral, Daily PRN, Wanda Mercer CHANGE COORDINATOR ??? ceFEPIme (MAXIPIME) 2 g in sodium chloride 0.9 % 100 mL IVPB, 2 g, Intravenous, Q8H, Roxana Chandler, APNP, Stopped at 12/24/21 0449 ??? cyclobenzaprine (FLEXERIL) tablet 10 mg, 10 mg, Oral, TID PRN, Wanda Mercer APRN, 10 mg at 12/23/21 0907 ??? dextrose 10 % bolus infusion 125-250 mL, 125-250 mL, Intravenous, PRN, Wanda Mercer CHANGE COORDINATOR ??? docusate sodium (COLACE) capsule 100 mg, 100 mg, Oral, BID, David Schofield PA-C, 100 mg at 12/23/211999 ??? glucagon injection 1 mg, 1 mg, Intramuscular, Once PRN, Wanda Mercer CHANGE COORDINATOR ??? glucose oral gel 32-64 mL, 15-30 g of dextrose, Oral, PRN, Wanda Mercer CHANGE COORDINATOR ??? heparin (porcine) injection 5,000 Units, 5,000 [...] Units, Subcutaneous, Nightly atbedtime, Darah R Dodt, CHANGE COORDINATOR, 4 Units at 12/23/212009 ??? lactated ringers infusion, , Intravenous, Continuous, Viet Araujo MD, Stopped at 12/22/21 0732 ??? linaCLOtide (LINZESS) capsule 145 mcg, 145 mcg, Oral, QAM AC, Roxana Chandler, APNP, 145 mcg at 12/23/21 0623 ??? morphine injection 1 mg, 1 mg, Intravenous, Q3H PRN, Wanda Mercer, CHANGE COORDINATOR, 1 mg at 12/23/21 0459 ??? naLOXone (NARCAN) injection 0.4 mg, 0.4 mg, Intravenous, PRN, Wanda Mercer CHANGE COORDINATOR ??? ondansetron (ZOFRAN) injection 4 mg, 4 mg, Intravenous, Q8H PRN, Sukhwinder Walker MD, 4 mg at 12/22/21 0724 ??? pantoprazole EC (PROTONIX) tablet 40 mg, 40 mg, Oral, Daily, Wanda Mercer, CHANGE COORDINATOR, 40 mg at 12/24/21 0920 ??? polyethylene [...] Procedure Component Value Units Date/Time CULTURE, ANAEROBIC [[id number]] Collected: 12/22/21714 Order Status: Completed Lab Status: Preliminary result Updated: 12/24/211116 Specimen: WOUND from TOE, RIGHT Spec. Description TOE,RIGHT Special Requests: NO SPECIAL REQUEST Gram Stain Result NO WHITE BLOOD CELLS SEEN Gram Stain Result -- RARE EPITHELIAL CELLS SEEN Gram Stain Result NO ORGANISMS SEEN Culture Result: NO GROWTH 2 DAYS CULTURE, WOUND, W/GRAM STAIN [[id number]] Collected: 12/22/21714 Order Status: Canceled Lab Status: No result Specimen: WOUND from TOE, RIGHT CULTURE, ANAEROBIC [[id number]] Collected: 12/22/21713 Order Status: Completed Lab Status: [...] GROWTH 2 DAYS CULTURE, WOUND, W/GRAM STAIN [[id number]] Collected: 12/22/21713 Order Status: Canceled Lab Status: No result Specimen: WOUND from TOE, RIGHT CORONAVIRUS (COVID-19) ANTIGEN (In-house [place]) [[id number]] Collected: 12/22/21545 Order Status: Completed Lab Status: [...] YES PATIENT IN ICU NO RESIDENT OF [facility] NO NOT CULTURE, BACTERIA, BLOOD [[id number]] Collected: 12/16/211814 Order Status: Completed Lab Status: Final result Updated: 12/21/21 1140 Specimen: BLOOD Spec. Description BLOOD Special Requests: NO SPECIAL REQUEST Culture Result: NO GROWTH 5 DAYS CULTURE, BACTERIA, BLOOD [[id number]] Collected: 12/16/211814 Order Status: Completed Lab Status: [...] Problem List: Principal Problem: Diabetic foot infection (CMS/[facility]) SNOMED CT(R): INFECTION OF FOOT DUE TO [...] 650 mg, Oral, Q4H PRN, Eduardo Aguillon, CHANGE COORDINATOR ??? amLODIPine (NORVASC) tablet 10 mg, 10 [...] mL, 125-250 mL, Intravenous, PRN, Wanda Mercer CHANGE COORDINATOR ??? docusate sodium (COLACE) capsule 100 mg, 100 mg, Oral, BID, David Schofield PA-C, 100 mg at 12/20/21 0919 ??? glucagon injection 1 mg, 1 mg, Intramuscular, Once PRN, Wanda Mercer CHANGE COORDINATOR ??? glucose oral gel 32-64 mL, 15-30 g of dextrose, Oral, PRN, Crystal M Brown, CHANGE COORDINATOR ??? heparin (porcine) injection 5,000 Units, 5,000 Units, Subcutaneous, 2 times per day, 5,000 Units at 12/21/21 0913 AND [COMPLETED] Moderate Risk for VTE, , , Once, Wanda Mercer APRN ??? HYDROcodone-acetaminophen (NORCO) 5-325 MG tablet 1 tablet, 1 tablet, Oral, Q6H PRN, Eduardo Aguillon, CHANGE COORDINATOR, 1 tablet at 12/20/21 1749 ??? hydrOXYzine (VISTARIL) capsule 25 mg, 25 mg, Oral, Nightly at bedtime, Wanda Mercer APRN, 25 mg at 12/20/212230 ??? insulin glargine (LANTUS) injection 24 Units, 0.25 Units/kg, Subcutaneous, Nightly at bedtime AND insulin lispro (HUMALOG) injection 8 Units, 0.08 Units/kg, Subcutaneous, TID AC, Roxana Chandler, APNP, 8 Units at 12/21/21 1242 ??? insulin lispro (HUMALOG) injection 0-16 Units, 0-16 Units, Subcutaneous, TID AC, 10 Units at 12/21/21 1242 AND insulin lispro (HUMALOG) injection 0-8 Units, 0-8 Units, Subcutaneous, Nightly at bedtime, Eduardo Aguillon, CHANGE COORDINATOR, 8 Units at 12/20/21 2229 ??? linaCLOtide [...] EXTREMITY VASCULAR LAB Pat.Name: TYSON MCNEAL Pat.ID: [id number] .Date: 12/16/2021 Refer.MD: Yasmin Segura Exam Time: [...] waveforms, Digit PPG, Systolic Pressures w/ADRIANA Race: -[place] ++++++++++++++++++++++++++++++++++++ SUMMARY: ++++++++++++++++++++++++++++++++++++ Joceline ADRIANA Criteria: >1.30 [...] ; DP/Anterior Tibial biphasic, medium amplitude with ADIRANA 1.08 . Digit flow by PPG is [...] FINDINGS: ++++++++++++++++++++++++++++++++++++ ++++++++++++++++++++++++++++++++++++ MEASUREMENTS: ++++++++++++++++++++++++++++++++++++ DOPPLER Left PIECE DYEING MACHINE TENDER PIECE DYEING MACHINE TENDER PSV 123 cm/s Left Dist Pop A Dist Pop A PSV 94.2 cm/s Left Dist PANTOGRAPH TRANSFERRER Dist PANTOGRAPH TRANSFERRER PSV 46.2 cm/s Left Dist DOMINGA Dist DOMINGA PSV 56.5 cm/s Right PIECE DYEING MACHINE TENDER PIECE DYEING MACHINE TENDER PSV 145 cm/s Right Dist Pop A Dist Pop A PSV 107 cm/s Right Dist PANTOGRAPH TRANSFERRER Dist PANTOGRAPH TRANSFERRER PSV 56.5 cm/s Right Dist DOMINGA Dist [...] Signed 12/17/2021 10:33 PM Hubert Hernandez M.D. XR [...] a more sensitive test. Ordered By: DESIREE MACKNEZIE Interpreted By: Angelito Tidwell, 12/16/2021 2:50 PM [...] if needed Pt agreed to take medication D CANE SCALE CLERK * Adenike Maynard RN - 12/22/2021 6:45 [...] limb pain. The patient presented to her supervisor propellant charge loading today for evaluation of ulcerations on the dorsal aspect of the right first toe and volar aspect of the right second toe. These were debrided. She also mentioned that she has been having increasingly severe pain in the lower legs, much moreso on the left. 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1970 Requested By: DESIREE MACKENZIE Order Number: [id number] Reading MD: Carroll Varela Measurements Intervals [place] Rate: 89 P: 34 MD: 160 QRS: 15 QRSD: 87 T: 102 [...] FOOT LT 2V Final Result by User, [id number] (12/16 2009) PROCEDURE: XR FOOT LT 2V [...] XR ABD KUB Final Result by User, [id number] (12/16 2006) HISTORY: no BM in 5 [...] ADRIANA LOW EXT Preliminary Result by User, [id number] (12/16 1921) ARTERIAL DOPPLER - ADRIANA BILATERAL LOWER EXTREMITY VASCULAR LAB Pat.Name: TYSON MCNEAL Pat.ID: [id number] St.Date: 12/16/2021 Refer.MD: Yasmin Segura Exam Time: 2:52:00 PM Study Type:MARINO VS Arterial Doppler Legs NOHEMY Height: 66in Age: 2 1970,51Y Sex: FEMALE Sonogrphr: Shahla Toscano RDIN, RVT Pat. Stat.:Outpatient Room: ER History / Clinical: Rt foot wounds. L>R severe leg pain. Lt foot cool to touch with weak pulse. PMH- DM. HTN. HLD. neurop. L2, L3 amp. BMI 39. Prior 06/21/21- Rt 1.12, Lt 1.24 Procedures: Doppler waveforms, Digit PPG, Systolic Pressures w/ADRIANA Race: -[place] ++++++++++++++++++++++++++++++++++++ SUMMARY: ++++++++++++++++++++++++++++++++++++ Joceline ADRIANA Criteria: >1.30 [...] FINDINGS: ++++++++++++++++++++++++++++++++++++ ++++++++++++++++++++++++++++++++++++ MEASUREMENTS: ++++++++++++++++++++++++++++++++++++ DOPPLER Left PIECE DYEING MACHINE TENDER PIECE DYEING MACHINE TENDER PSV 123 cm/s Left Dist Pop A Dist Pop A PSV 94.2 cm/s Left Dist PANTOGRAPH TRANSFERRER Dist PANTOGRAPH TRANSFERRER PSV 46.2 cm/s Left Dist DOMINGA Dist DOMINGA PSV 56.5 cm/s Right PIECE DYEING MACHINE TENDER PIECE DYEING MACHINE TENDER PSV 145 cm/s Right Dist Pop A Dist Pop A PSV 107 cm/s Right Dist PANTOGRAPH TRANSFERRER Dist PANTOGRAPH TRANSFERRER PSV 56.5 cm/s Right Dist DOMINGA Dist [...] MULTI TOE RT Final Result by User, [id number] (12/16 1500) IMAGING STUDIES: XR MULTI TOE [...] right, 1.08 left. The patient and her supervisor propellant charge loading are quite concerned about early osteomyelitis. I could not contact him given that the office was closed. We will start IV antibiotics and plan for admission. Clinical Impression Hypokalemia (Primary) Diabetic foot ulcer ([facility]) Disposition: Admit Desiree Mackenzie MD 12/17/21 0759 [...] Contact Info) Description 03/14/2024 11:45 AM FIELD CANE SCALE CLERK Office Visit [facility]-[address] [phone] Marvin Mckeon MD [facility] [address] [place] [address] 03/20/2024 11:30 AM FIELD CANE SCALE CLERK Office Visit [facility] - [place] [address] [place] [phone] Yasmin Segura II, MD [address] [place], [place] [phone] documented as of this encounter Procedures Procedure Name Priority Date/Time Associated Diagnosis Comments POCT GLUCOSE - CORREA DOCKED DEVICE Routine 12/26/2021 11:41 AM FIELD CANE SCALE CLERK POCT GLUCOSE - CORREA DOCKED DEVICE Routine 12/26/2021 6:23 AM FIELD CANE SCALE CLERK COMPREHENSIVE METABOLIC PANEL Routine 12/26/2021 3:49 AM FIELD CANE SCALE CLERK CBC W/DIFF AUTOMATED Routine 12/26/2021 3:49 AM FIELD CANE SCALE CLERK LIPASE Routine 12/26/2021 3:49 AM FIELD CANE SCALE CLERK POCT GLUCOSE - CORREA DOCKED DEVICE Routine 12/25/2021 8:37 PM FIELD CANE SCALE CLERK CULTURE STREP A Routine 12/25/2021 5:15 PM FIELD CANE SCALE CLERK POCT GLUCOSE - CORREA DOCKED DEVICE Routine 12/25/2021 3:09 PM FIELD CANE SCALE CLERK XR ABD KUB Today 12/25/2021 12:55 PM FIELD CANE SCALE CLERK POCT GLUCOSE - CORREA DOCKED DEVICE Routine 12/25/2021 11:57 AM FIELD CANE SCALE CLERK POCT GLUCOSE - CORREA DOCKED DEVICE Routine 12/25/2021 7:25 AM FIELD CANE SCALE CLERK COMPREHENSIVE METABOLIC PANEL Routine 12/25/2021 3:42 AM FIELD CANE SCALE CLERK CBC W/DIFF AUTOMATED Routine 12/25/2021 3:42 AM FIELD CANE SCALE CLERK CK (CPK) Routine 12/25/2021 3:42 AM FIELD CANE SCALE CLERK POCT GLUCOSE - CORREA DOCKED DEVICE [...] * (ABNORMAL) POCT glucose (12/26/2021 11:41 AM FIELD CANE SCALE CLERK) GLUCOSE POC 143(H) 70 - 99 mg/dL 12/26/2021 11:48 AM FIELD CANE SCALE CLERK [facility] 12/26/2021 11:4 1 AM FIELD CANE SCALE CLERK Roxana Chandler APNP POCT ORDERABLES - DEVICE Final Result Performing Organization Address [facility]/ZIP Co de Phone Number [facility] [address] [place] [address], * POCT glucose (12/26/2021 6:23 AM FIELD CANE SCALE CLERK) GLUCOSE POC 83 70 - 99 mg/dL 12/26/2021 6:34 AM FIELD CANE SCALE CLERK [facility] 12/26/2021 6:23 AM FIELD CANE SCALE CLERK us Roxana Chandler ELLEN POCT ORDERABLES - DEVICE Final Result Performing Organization Address [facility] [[email or web address]] Co de Phone Number [facility] [address] [place] [address], [place] [phone] * LIPASE (12/26/2021 3:49 AM FIELD CANE SCALE CLERK) LIPASE 143 73 - 393 UNITS/L 12/26/2021 7:59 AM FIELD CANE SCALE CLERK [facility] 12/26/2021 3:49 AM FIELD CANE SCALE CLERK us Roxana Chandler [facility] Final Res ult Performing Organization Address City/[facility] [[email or web address]] Co de Phone Number [facility] [address] [place] [address], [place] [phone] * (ABNORMAL) CBC W/DIFF AUTOMATED (12/26/2021 3:49 AM FIELD CANE SCALE CLERK) WBC 10.2 4.5 - 11.0 x10'3/uL 12/26/2021 3:56 AM FIELD CANE SCALE CLERK [facility] RBC 3.31(L) 4.20 - 5.40 x10'6/uL 12/26/2021 3:56 AM FIELD CANE SCALE CLERK [facility] HGB 10.0(L) 12.0 - 16.0 G/DL 12/26/2021 3:56 AM [facility] HCT 29.7(L) 38.0 - 48.0 % 12/26/2021 3:56 AM [facility] MCV 89.7 81.0 - 99.0 FL 12/26/2021 3:56 AM [facility] MCH 30.2 27.0 - 31.0 PG 12/26/2021 3:56 AM [facility] MCHC 33.7 32.0 - 36.0 G/DL 12/26/2021 3:56 AM [facility] RDW 13.1 11.5 - 14.5 % 12/26/2021 3:56 AM [facility] PLT 240 130 - 400 x10'3/uL 12/26/2021 3:56 AM [facility] MPV 10.8 9.3 - 12.2 FL 12/26/2021 3:56 AM [facility] DIFFERENTIAL TYPE AUTOMATED DIFFERENTIAL 12/26/2021 3:56 AM [facility] NEUTROPHILS % 60.8 % 12/26/2021 3:56 AM [facility] LYMPHOCYTES % 30.5 % 12/26/2021 3:56 AM [facility] MONOCYTES % 5.9 % 12/26/2021 3:56 AM [facility] EOSINOPHILS 1.9 % 12/26/2021 3:56 AM [facility] BASOPHILS 0.5 % 12/26/2021 3:56 AM [facility] IMMATURE GRANS % 0.4 % 12/27/19 3:56 AM [facility] ABS. NEUTROPHILS TOTAL 6.21 1.80 - 7.70 x10'3/uL 12/26/2021 3:56 AM FIELD CANE SCALE CLERK [facility] ABS. LYMPHOCYTES 3.11 1.00 - 4.80 x10'3/uL 12/26/2021 3:56 AM FIELD CANE SCALE CLERK [facility] ABS. MONOCYTES 0.60 0.24 - 0.86 x10'3/uL 12/26/2021 3:56 AM FIELD CANE SCALE CLERK [facility] ABS. EOSINOPHILS 0.19 0.04 - 0.36 x10'3/uL 12/26/2021 3:56 AM FIELD CANE SCALE CLERK [facility] ABS. BASOPHILS 0.05 0.01 - 0.08 x10'3/uL 12/26/2021 3:56 AM FIELD CANE SCALE CLERK [facility] ABS. IMMATURE GRANULOCYTES 0.04 0.00 - 0.49 x10'3/uL 12/26/2021 3:56 AM FIELD CANE SCALE CLERK [facility] 12/26/2021 3:49 AM FIELD CANE SCALE CLERK R[facility]ana [facility] Final Res ult [facility] [address] [place] [id number], [place] [phone] * (ABNORMAL) COMPREHENSIVE METABOLIC PANEL (12/26/2021 3:49 AM FIELD CANE SCALE CLERK) [facility] GLUCOSE 89 70 - 99 MG/DL 12/26/2021 4:18 AM FIELD CANE SCALE CLERK [facility] BUN 26(H) 7 - 18 MG/DL 12/26/2021 4:18 AM [facility] CREATININE S/P/B 1.08(H) 0.55 - 1.02 MG/DL 12/26/2021 4:18 AM FIELD CANE SCALE CLERK [facility] SODIUM S/P/B 138 136 - 145 MMOL/L 12/26/2021 4:18 AM [facility] POTASSIUM S/P/B 4.3 3.5 - 5.1 MMOL/L 12/26/2021 4:18 AM [facility] CHLORIDE S/P/B 108 100 - 108 MMOL/L 12/26/2021 4:18 AM [facility] CO2 24.8 21 - 32 MMOL/L 12/26/2021 4:18 AM [facility] CALCIUM S/P/B 9.1 8.5 - 10.1 MG/DL 12/26/2021 4:18 AM [facility] BILIRUBIN TOTAL S/P/B 0.2 0.2 - 1.2 MG/DL 12/26/2021 4:18 AM [facility] Comment: THIS ASSAY IS NOT RECOMMENDED FOR PATIENTS UNDERGOING TREATMENT WITH ELTROMBOPAG DUE TO THE POTENTIAL FOR FALSELY ELEVATED RESULTS. TOTAL PROTEIN S/P/B 7.9 6.4 - 8.2 G/DL 12/26/2021 4:18 AM [facility] ALBUMIN S/P/B 2.9(L) 3.4 - 5.0 G/DL 12/26/2021 4:18 AM [facility] AST 44(H) 15 - 37 U/L 12/26/2021 4:18 AM [facility] ALT 82(H) 14 - 55 U/L 12/26/2021 4:18 AM [facility] ALKALINE PHOSPHATASE S/P/B 169(H) 50 - 136 U/L 12/26/2021 4:18 AM [facility] ANION GAP 5.2 5 - 15 MMOL/L 12/26/2021 4:18 AM [facility] BUN CREATININE RATIO 24.1 6 - 26 12/26/2021 4:18 AM [facility] SCALE CLERK [facility] A/G RATIO 0.6(L) 1.0 - 2.0 RATIO 12/26/2021 4:18 AM [facility] GFR ESTIMATE 63(L) >90 ML/MIN/1.7 3 M2 12/26/2021 4:18 AM [facility] Comment: NOTE: eGFR is not calculated for patients <18 years of age. This is an estimated GFR calculation using the new CKD EPI creatinine equation without race and so does not require a correction factor for race. This estimated GFR should not be used for calculating drug doses. 12/26/2021 3:49 AM FIELD CANE SCALE CLERK us Roxana HUGHES LABORATORY Final Res ult Performing Organization Address City/[facility]/ZIP Co de Phone Number [facility] [address] [place] [address], [place] [phone] * (ABNORMAL) POCT glucose (12/25/2021 8:37 PM FIELD CANE SCALE CLERK) Pathologist [facility] GLUCOSE POC 204(H) 70 - 99 mg/dL 12/25/2021 8:40 PM FIELD CANE SCALE CLERK [facility] 12/25/2021 8:37 PM FIELD CANE SCALE CLERK Roxana HUGHES POCT ORDERABLES - DEVICE Final Result [facility] [address] [place] [address], [place] [phone] * CULTURE STREP A (12/25/2021 5:15 PM FIELD CANE SCALE CLERK) SPEC DESCRIPTION THROAT 12/25/2021 3:17 PM FIELD CANE SCALE CLERK [facility] SPECIAL REQUESTS NO SPECIAL REQUEST 12/25/2021 3:17 PM FIELD CANE SCALE CLERK [facility] CULTURE RESULT NO STREPTOCOCCUS PYOGENES (GROUP A) ISOLATED 12/28/2021 7:00 AM FIELD CANE SCALE CLERK [facility] THROAT SWAB / Unknown 12/25/2021 5:15 PM FIELD CANE SCALE CLERK 12/25/2021 5:29 PM FIELD CANE SCALE CLERK Roxana Merino Geraldine HUGHES MICROBIOLOGY - GENERAL OR DERABLES Final Result Performing Organization Address [facility] [[email or web address]] Co de Phone Number [facility] [address] [place] [address], [place] [phone] * (ABNORMAL) POCT glucose (12/25/2021 3:09 PM FIELD CANE SCALE CLERK) [facility] GLUCOSE POC 287(H) 70 - 99 mg/dL 12/25/2021 3:31 PM FIELD CANE SCALE CLERK [facility] 12/25/2021 3:09 PM FIELD CANE SCALE CLERK Roxana Merino Geraldine HUGHES POCT ORDERABLES - DEVICE Final Result Performing Organization Address [facility] de Phone Number [facility] [address] [place] [address], [place] [phone] * XR ABD KUB (12/25/2021 12:55 PM FIELD CANE SCALE CLERK) Anatomical Region Laterality Modality Abdomen Radiographic Shelli ging 12/25/2021 1:17 PM FIELD CANE SCALE CLERK Impressions 12/25/2021 1:26 PM FIELD CANE SCALE CLERK IMPRESSION: Nonobstructive bowel gas pattern. Referred By: ?? Interpreted By: Angelito Tidwell MD, 12/25/2021 1:17 PM Narrative 12/25/2021 1:26 PM FIELD CANE SCALE CLERK IMAGING STUDIES: ??XR ABD KUB ? DATE: [...] * (ABNORMAL) POCT glucose (12/25/2021 11:57 AM FIELD CANE SCALE CLERK) GLUCOSE POC 176(H) 70 - 99 mg/dL 12/25/2021 12:01 PM FIELD CANE SCALE CLERK [facility] 12/25/2021 11:5 7 AM FIELD CANE SCALE CLERK Roxana Merino Geraldine HUGHES POCT ORDERABLES - DEVICE Final Result Performing Organization Address [facility]/ZIP Co de Phone Number [facility] [address] [place] [address], [place] [phone] * (ABNORMAL) POCT glucose (12/25/2021 7:25 AM FIELD CANE SCALE CLERK) GLUCOSE POC 139(H) 70 - 99 mg/dL 12/25/2021 6:27 AM FIELD CANE SCALE CLERK [facility] 12/25/2021 7:25 AM FIELD CANE SCALE CLERK Roxana Angelique HUGHES POCT ORDERABLES - DEVICE Final Result Performing Organization Address City/[facility]/ZIP Co de Phone Number [facility] [address] [place] [address], [place] [phone] * (ABNORMAL) CBC W/DIFF AUTOMATED (12/25/2021 3:42 AM FIELD CANE SCALE CLERK) [facility] WBC 9.3 4.5 - 11.0 x10'3/uL 12/25/2021 3:53 AM [facility] RBC 3.40(L) 4.20 - 5.40 x10'6/uL 12/25/2021 3:53 AM [facility] HGB 10.2(L) 12.0 - 16.0 G/DL 12/25/2021 3:53 AM [facility] HCT 30.4(L) 38.0 - 48.0 % 12/25/2021 3:53 AM [facility] MCV 89.4 81.0 - 99.0 FL 12/25/2021 3:53 AM [facility] MCH 30.0 27.0 - 31.0 PG 12/25/2021 3:53 AM [facility] MCHC 33.6 32.0 - 36.0 G/DL 12/25/2021 3:53 AM [facility] RDW 12.8 11.5 - 14.5 % 12/25/2021 3:53 AM [facility] PLT 244 130 - 400 x10'3/uL 12/25/2021 3:53 AM [facility] MPV 11.1 9.3 - 12.2 FL 12/25/2021 3:53 AM [facility] DIFFERENTIAL TYPE AUTOMATED DIFFERENTIAL 12/25/2021 3:53 AM [facility] NEUTROPHILS % 55.9 % 12/25/2021 3:53 AM [facility] LYMPHOCYTES % 35.8 % 12/25/2021 3:53 AM [facility] MONOCYTES % 5.7 % 12/25/2021 3:53 AM [facility] EOSINOPHILS 1.9 % 12/25/2021 3:53 AM FIELD CANE SCALE CLERK [facility] BASOPHILS 0.4 % 12/25/2021 3:53 AM [facility] IMMATURE GRANS % 0.3 % 12/26/19 3:53 AM FIELD CANE SCALE CLERK [facility] ABS. NEUTROPHILS TOTAL 5.19 1.80 - 7.70 x10'3/uL 12/25/2021 3:53 AM FIELD CANE SCALE CLERK [facility] ABS. LYMPHOCYTES 3.33 1.00 - 4.80 x10'3/uL 12/25/2021 3:53 AM FIELD CANE SCALE CLERK [facility] ABS. MONOCYTES 0.53 0.24 - 0.86 x10'3/uL 12/25/2021 3:53 AM [facility] ABS. EOSINOPHILS 0.18 0.04 - 0.36 x10'3/uL 12/25/2021 3:53 AM FIELD CANE SCALE CLERK [facility] ABS. BASOPHILS 0.04 0.01 - 0.08 x10'3/uL 12/25/2021 3:53 AM [facility] ABS. IMMATURE GRANULOCYTES 0.03 0.00 - 0.49 x10'3/uL 12/25/2021 3:53 AM [facility] 12/25/2021 3:42 AM FIELD CANE SCALE CLERK us Roxana Chandler APNP LABORATORY Final Res ult [facility] [address] [place] [address], [place] [phone] * (ABNORMAL) COMPREHENSIVE METABOLIC PANEL (12/25/2021 3:42 AM FIELD CANE SCALE CLERK) [facility] GLUCOSE 142(H) 70 - 99 MG/DL 12/25/2021 4:24 AM [facility] BUN 27(H) 7 - 18 MG/DL 12/25/2021 4:24 AM [facility] CREATININE S/P/B 1.02 0.55 - 1.02 MG/DL 12/25/2021 4:24 AM [facility] SODIUM S/P/B 138 136 - 145 MMOL/L 12/25/2021 4:24 AM [facility] POTASSIUM S/P/B 4.2 3.5 - 5.1 MMOL/L 12/25/2021 4:24 AM [facility] CHLORIDE S/P/B 107 100 - 108 MMOL/L 12/25/2021 4:24 AM [facility] CO2 25.3 21 - 32 MMOL/L 12/25/2021 4:24 AM [facility] CALCIUM S/P/B 9.2 8.5 - 10.1 MG/DL 12/25/2021 4:24 AM [facility] BILIRUBIN TOTAL S/P/B 0.2 0.2 - 1.2 MG/DL 12/25/2021 4:24 AM [facility] Comment: THIS ASSAY IS NOT RECOMMENDED FOR PATIENTS UNDERGOING TREATMENT WITH ELTROMBOPAG DUE TO THE POTENTIAL FOR FALSELY ELEVATED RESULTS. TOTAL PROTEIN S/P/B 7.8 6.4 - 8.2 G/DL 12/25/2021 4:24 AM [facility] ALBUMIN S/P/B 2.8(L) 3.4 - 5.0 G/DL 12/25/2021 4:24 AM [facility] AST 38(H) 15 - 37 U/L 12/25/2021 4:24 AM [facility] ALT 80(H) 14 - 55 U/L 12/25/2021 4:24 AM [facility] ALKALINE PHOSPHATASE S/P/B 184(H) 50 - 136 U/L 12/25/2021 4:24 AM FIELD CANE SCALE CLERK [facility] ANION GAP 5.7 5 - 15 MMOL/L 12/25/2021 4:24 AM [facility] BUN CREATININE RATIO 26.5(H) 6 - 26 12/25/2021 4:24 AM [facility] A/G RATIO 0.6(L) 1.0 - 2.0 RATIO 12/25/2021 4:24 AM [facility] GFR ESTIMATE 67(L) >90 ML/MIN/1.7 3 M2 12/25/2021 4:24 AM [facility] Comment: NOTE: eGFR is not calculated for patients <18 years of age. This is an estimated GFR calculation using the new CKD EPI creatinine equation without race and so does not require a correction factor for race. This estimated GFR should not be used for calculating drug doses. 12/25/2021 3:42 AM FIELD CANE SCALE CLERK us Roxana HUGHES LABORATORY Final Res ult [facility] [address] [place] [address], [place] [phone] * CK (CPK) - Weekly starting tomorrow (12/25/2021 3:42 AM FIELD CANE SCALE CLERK) CPK 71 21 - 215 U/L 12/25/2021 4:24 AM FIELD CANE SCALE CLERK [facility] 12/25/2021 3:42 AM FIELD CANE SCALE CLERK us Ezio Bethea DO LABORATORY Final Result [facility] [address] [place] [address], [place] [phone] * (ABNORMAL) POCT glucose (12/24/2021 10:11 PM CDT) GLUCOSE POC 196(H) 70 - 99 mg/dL 12/25/2021 6:27 AM FIELD CANE SCALE CLERK [facility] 12/24/2021 10:1 1 PM CDT us Roxana Chandler APSUSAN POCT ORDERABLES - DEVICE Final Result Performing Organization Address City/[facility]/ZIP Co de Phone Number [address] [address], [place] [phone] * (ABNORMAL) POCT glucose (12/24/2021 5:35 PM CDT) GLUCOSE POC 233(H) 70 - 99 mg/dL 12/24/2021 5:[address] [facility] 12/24/2021 5:35 PM CDT us Roxana Chandler APSUSAN POCT ORDERABLES - DEVICE Final Result Performing Organization Address City/[facility]/ZIP Co de Phone Number [address] [address], [place] [phone] * (ABNORMAL) POCT glucose (12/24/2021 11:46 AM CDT) GLUCOSE POC 239(H) 70 - 99 mg/dL 12/24/2021 11:[address] [facility] 12/24/2021 11:4 6 AM CDT us Roxana Chandler APNP POCT ORDERABLES - DEVICE Final Result [facility] [address] [place] [address], * (ABNORMAL) POCT glucose (12/24/2021 6:29 AM CDT) GLUCOSE POC 189(H) 70 - 99 mg/dL 12/24/2021 6:[address] [facility] 12/24/2021 6:29 AM CDT Roxana Merino Geraldine HUGHES POCT ORDERABLES - DEVICE Final Result [facility] [address] [place] [address], * (ABNORMAL) CBC W/DIFF AUTOMATED (12/24/2021 3:45 AM CDT) [facility] Signature WBC 7.4 4.5 - 11.0 x10'3/uL 12/24/2021 4:[address] [facility] RBC 3.43(L) 4.20 - 5.40 x10'6/uL 12/24/2021 4:[address] [facility] HGB 10.3(L) 12.0 - 16.0 G/DL 12/24/2021 4:[address] [facility] HCT 30.9(L) 38.0 - 48.0 % 12/24/2021 4:[address] [facility] MCV 90.1 81.0 - 99.0 FL 12/24/2021 4:[address] [facility] MCH 30.0 27.0 - 31.0 PG 12/24/2021 4:[address] [facility] MCHC 33.3 32.0 - 36.0 G/DL 12/24/2021 4:[address] [facility] RDW 12.8 11.5 - 14.5 % 12/24/2021 4:[address] [facility] PLT 247 130 - 400 x10'3/uL 12/24/2021 4:[address] [facility] MPV 11.1 9.3 - 12.2 FL 12/24/2021 4:[address] [facility] DIFFERENTIAL TYPE AUTOMATED DIFFERENTIAL 12/24/2021 4:[address] [facility] NEUTROPHILS % 58.0 % 12/24/2021 4:[address] [facility] LYMPHOCYTES % 33.6 % 12/24/2021 4:[address] [facility] MONOCYTES % 5.6 % 12/24/2021 4:[address] [facility] EOSINOPHILS 2.0 % 12/24/2021 4:[address] [facility] BASOPHILS 0.5 % 12/24/2021 4:[address] [facility] IMMATURE GRANS % 0.3 % 12/25/19 4:[address] [facility] ABS. NEUTROPHILS TOTAL 4.26 1.80 - 7.70 x10'3/uL 12/24/2021 4:[address] [facility] ABS. LYMPHOCYTES 2.47 1.00 - 4.80 x10'3/uL 12/24/2021 4:[address] [facility] ABS. MONOCYTES 0.41 0.24 - 0.86 x10'3/uL 12/24/2021 4:[address] [facility] ABS. EOSINOPHILS 0.15 0.04 - 0.36 x10'3/uL 12/24/2021 4:[address] [facility] ABS. BASOPHILS 0.04 0.01 - 0.08 x10'3/uL 12/24/2021 4:[address] [facility] ABS. IMMATURE GRANULOCYTES 0.02 0.00 - 0.49 x10'3/uL 12/24/2021 4:[address] [facility] 12/24/2021 3:45 AM CDT us Roxana Chandler APNP LABORATORY Final Res ult [facility] [address] [place] [address], [place] [phone] * (ABNORMAL) BASIC METABOLIC PANEL (12/24/2021 3:45 AM CDT) GLUCOSE 175(H) 70 - 99 MG/DL 12/24/2021 4:[address] [facility] BUN 23(H) 7 - 18 MG/DL 12/24/2021 4:[address] [facility] CREATININE S/P/B 1.05(H) 0.55 - 1.02 MG/DL 12/24/2021 4:[address] [facility] SODIUM S/P/B 137 136 - 145 MMOL/L 12/24/2021 4:[address] [facility] POTASSIUM S/P/B 4.7 3.5 - 5.1 MMOL/L 12/24/2021 4:[address] [facility] CHLORIDE S/P/B 107 100 - 108 MMOL/L 12/24/2021 4:[address] [facility] CO2 25.2 21 - 32 MMOL/L 12/24/2021 4:[address] [facility] CALCIUM S/P/B 8.7 8.5 - 10.1 MG/DL 12/24/2021 4:[address] [facility] ANION GAP 4.8(L) 5 - 15 MMOL/L 12/24/2021 4:[address] [facility] BUN CREATININE RATIO 21.9 6 - 26 12/24/2021 4:[address] [facility] GFR ESTIMATE 65(L) >90 ML/MIN/1.7 3 M2 12/24/2021 4:[address] [facility] [...] CDT Roxana HUGHES LABORATORY Final Res ult [facility] [address] [place] [address], [place] [phone] * (ABNORMAL) POCT glucose (12/23/2021 7:54 PM CDT) [facility] Signature GLUCOSE POC 259(H) 70 - 99 mg/dL 12/23/2021 8:[address] [facility] 12/23/2021 7:54 PM CDT Roxana HUGHES POCT ORDERABLES - DEVICE Final Result [facility] [address] [place] [address], [place] [phone] * (ABNORMAL) POCT glucose (12/23/2021 5:17 PM CDT) GLUCOSE POC 218(H) 70 - 99 mg/dL 12/23/2021 6:[address] [facility] 12/23/2021 5:17 PM CDT Roxana Chandler APNP POCT ORDERABLES - DEVICE Final Result [facility] [address] [place] [id number], * XR CHEST PORTABLE (12/23/2021 12:03 PM [...] - 99 mg/dL 12/23/2021 12:[address] [facility] 12/23/2021 12:0 3 PM CDT Roxana HUGHES POCT ORDERABLES - DEVICE Final Result [facility] [address] [place] [address], [place] [phone] * (ABNORMAL) POCT glucose (12/23/2021 6:25 AM CDT) GLUCOSE POC 234(H) 70 - 99 mg/dL 12/23/2021 6:[address] [facility] 12/23/2021 6:25 AM CDT Roxana Chandler ELLEN POCT ORDERABLES - DEVICE Final Result [facility] [address] [place] [address], [place] [phone] * (ABNORMAL) CBC W/DIFF AUTOMATED (12/23/2021 3:55 AM CDT) Pathologist [facility] WBC 8.2 4.5 - 11.0 x10'3/uL 12/23/2021 4:[address] [facility] RBC 3.45(L) 4.20 - 5.40 x10'6/uL 12/23/2021 4:[address] [facility] HGB 10.3(L) 12.0 - 16.0 G/DL 12/23/2021 4:[address] [facility] HCT 31.4(L) 38.0 - 48.0 % 12/23/2021 4:[address] [facility] MCV 91.0 81.0 - 99.0 FL 12/23/2021 4:[address] [facility] MCH 29.9 27.0 - 31.0 PG 12/23/2021 4:[address] [facility] MCHC 32.8 32.0 - 36.0 G/DL 12/23/2021 4:[address] [facility] RDW 12.8 11.5 - 14.5 % 12/23/2021 4:[address] [facility] PLT 259 130 - 400 x10'3/uL 12/23/2021 4:[address] [facility] MPV 11.1 9.3 - 12.2 FL 12/23/2021 4:[address] [facility] DIFFERENTIAL TYPE AUTOMATED DIFFERENTIAL 12/23/2021 4:[address] [facility] NEUTROPHILS % 70.5 % 12/23/2021 4:[address] [facility] LYMPHOCYTES % 22.0 % 12/23/2021 4:[address] [facility] MONOCYTES % 5.5 % 12/23/2021 4:[address] [facility] EOSINOPHILS 1.0 % 12/23/2021 4:[address] [facility] BASOPHILS 0.6 % 12/23/2021 4:[address] [facility] IMMATURE GRANS % 0.4 % 12/24/19 4:[address] [facility] ABS. NEUTROPHILS TOTAL 5.80 1.80 - 7.70 x10'3/uL 12/23/2021 4:[address] [facility] ABS. LYMPHOCYTES 1.81 1.00 - 4.80 x10'3/uL 12/23/2021 4:16 AM [facility] ABS. MONOCYTES 0.45 0.24 - 0.86 x10'3/uL 12/23/2021 4:16 AM [facility] ABS. EOSINOPHILS 0.08 0.04 - 0.36 x10'3/uL 12/23/2021 4:[address] [facility] ABS. BASOPHILS 0.05 0.01 - 0.08 x10'3/uL 12/23/2021 4:16 AM [facility] ABS. IMMATURE GRANULOCYTES 0.03 0.00 - 0.49 x10'3/uL 12/23/2021 4:16 AM [facility] 12/23/2021 3:55 AM CDT us Roxana Chandler APNP LABORATORY Final Res ult [facility] [address] [place] [address], [place] [phone] * (ABNORMAL) BASIC METABOLIC PANEL (12/23/2021 3:55 AM CDT) [facility] GLUCOSE 251(H) 70 - 99 MG/DL 12/23/2021 4:[address] [facility] BUN 28(H) 7 - 18 MG/DL 12/23/2021 4:[address] [facility] CREATININE S/P/B 1.11(H) 0.55 - 1.02 MG/DL 12/23/2021 4:[address] [facility] SODIUM S/P/B 135(L) 136 - 145 MMOL/L 12/23/2021 4:[address] [facility] POTASSIUM S/P/B 5.6(H) 3.5 - 5.1 MMOL/L 12/23/2021 4:[address] [facility] CHLORIDE S/P/B 106 100 - 108 MMOL/L 12/23/2021 4:[address] [facility] CO2 23.6 21 - 32 MMOL/L 12/23/2021 4:[address] [facility] CALCIUM S/P/B 8.8 8.5 - 10.1 MG/DL 12/23/2021 4:[address] [facility] ANION GAP 5.4 5 - 15 MMOL/L 12/23/2021 4:[address] [facility] BUN CREATININE RATIO 25.2 6 - 26 12/23/2021 4:[address] [facility] GFR ESTIMATE 61(L) >90 ML/MIN/1.7 3 M2 12/23/2021 4:[address] [facility] Comment: NOTE: eGFR is not calculated for patients <18 years of age. This is an estimated GFR calculation using the new CKD EPI creatinine equation without race and so does not require a correction factor for race. This estimated GFR should not be used for calculating drug doses. 12/23/2021 3:55 AM CDT Roxana Brdaleyxavier [facility] Final Res ult Performing Organization Address City/[facility] [[email or web address]] Co de Phone Number [facility] [address] [place] [address], [place] [phone] * (ABNORMAL) POCT glucose (12/22/2021 9:01 PM CDT) GLUCOSE POC 246(H) 70 - 99 mg/dL 12/22/2021 9:[address] [facility] 12/22/2021 9:01 PM CDT Roxana Bradleyxavier [facility] POCT ORDERABLES - DEVICE Final Result Performing Organization Address [facility] [[email or web address]] Co de Phone Number [facility] [address] [place] [address], [place] [phone] * (ABNORMAL) POCT glucose (12/22/2021 5:07 PM CDT) GLUCOSE POC 256(H) 70 - 99 mg/dL 12/22/2021 5:[address] [facility] 12/22/2021 5:07 PM CDT us Roxana Bradleyjohn APNP POCT ORDERABLES - DEVICE Final Result Performing Organization Address City/[facility] [[email or web address]] Co de Phone Number [facility] [address] [place] [address], [place] [phone] * (ABNORMAL) POCT glucose (12/22/2021 11:11 AM CDT) GLUCOSE POC 242(H) 70 - 99 mg/dL 12/22/2021 11:[address] [facility] 12/22/2021 11:1 1 AM CDT Roxana Angelique [facility] POCT ORDERABLES - DEVICE Final Result Performing Organization Address [facility] [[email or web address]] Co de Phone Number [facility] [address] [place] [address], [place] [phone] * (ABNORMAL) POCT glucose (12/22/2021 7:37 AM CDT) GLUCOSE POC 188(H) 70 - 99 mg/dL 12/22/2021 7:[address] [facility] 12/22/2021 7:37 AM CDT Roxana Angelique [facility] POCT ORDERABLES - DEVICE Final Result Performing Organization Address City/[facility]/ZIP Co de Phone Number [facility] [address] [place] [address], [place] [phone] * CULTURE, ANAEROBIC (12/22/2021 7:15 AM CDT) SPEC DESCRIPTION TOE,RIGHT 12/22/2021 7:[address] [facility] SPECIAL REQUESTS NO SPECIAL REQUEST 12/22/2021 7:[address] [facility] GRAM STAIN RESULT NO WHITE BLOOD CELLS SEEN 12/22/2021 12:[address] [facility] GRAM STAIN RESULT RARE EPITHELIAL CELLS SEEN 12/22/2021 12:[address] [facility] GRAM STAIN RESULT NO ORGANISMS SEEN 12/22/2021 12:[address] [facility] CULTURE RESULT NO GROWTH 5 DAYS 12/27/2021 11:46 AM FIELD [employer] SCALE CLERK [facility] CULTURE RESULT NOTE: ANAEROBIC CULTURES ARE ROUTINELY SCREENED FOR BOTH AEROBIC AND ANAEROBIC ORGANISMS. 12/27/2021 11:46 AM FIELD CANE SCALE CLERK [facility] WOUND STRUCTURE OF TOE OF RIGHT FOOT / Unknown 12/22/2021 7:44 AM CDT us Hubert Cheek DPM MICROBIOLOGY - GENERAL OR DERABLES Final Result [facility] [address] [place] [address], [place] [phone] * CULTURE, ANAEROBIC (12/22/2021 7:14 AM CDT) SPEC DESCRIPTION TOE,RIGHT 12/22/2021 7:[address] [facility] SPECIAL REQUESTS NO SPECIAL REQUEST 12/22/2021 7:[address] [facility] GRAM STAIN RESULT NO WHITE BLOOD CELLS SEEN 12/22/2021 12:[address] [facility] GRAM STAIN RESULT RARE EPITHELIAL CELLS SEEN 12/22/2021 12:[address] [facility] GRAM STAIN RESULT RARE RED BLOOD CELLS SEEN 12/22/2021 12:[address] [facility] GRAM STAIN RESULT NO ORGANISMS SEEN 12/22/2021 12:[address] [facility] CULTURE RESULT NO GROWTH 5 DAYS 12/27/2021 11:46 AM FI[employer] SCALE CLERK [facility] CULTURE RESULT NOTE: ANAEROBIC CULTURES ARE ROUTINELY SCREENED FOR BOTH AEROBIC AND ANAEROBIC ORGANISMS. 12/27/2021 11:46 AM [facility] WOUND STRUCTURE OF TOE OF RIGHT FOOT / Unknown 12/22/2021 7:44 AM CDT Hubert Cheek DPM MICROBIOLOGY - GENERAL OR DERABLES Final Result [facility] [address] [place] [address], [place] [phone] * (ABNORMAL) BASIC METABOLIC PANEL (12/22/2021 5:52 AM CDT) GLUCOSE 170(H) 70 - 99 MG/DL 12/22/2021 6:[address] [facility] BUN 33(H) 7 - 18 MG/DL 12/22/2021 6:28 AM CDT [facility] CREATININE S/P/B 1.29(H) 0.55 - 1.02 MG/DL 12/22/2021 6:[address] [facility] SODIUM S/P/B 136 136 - 145 MMOL/L 12/22/2021 6:[address] [facility] POTASSIUM S/P/B 4.6 3.5 - 5.1 MMOL/L 12/22/2021 6:[address] [facility] CHLORIDE S/P/B 105 100 - 108 MMOL/L 12/22/2021 6:[address] [facility] CO2 25.9 21 - 32 MMOL/L 12/22/2021 6:[address] [facility] CALCIUM S/P/B 9.5 8.5 - 10.1 MG/DL 12/22/2021 6:[address] [facility] ANION GAP 5.1 5 - 15 MMOL/L 12/22/2021 6:[address] [facility] BUN CREATININE RATIO 25.6 6 - 26 12/22/2021 6:[address] [facility] GFR ESTIMATE 51(L) >90 ML/MIN/1.7 3 M2 12/22/2021 6:[address] [facility] [...] CDT Eduardo Aguillon APRN LABORATORY Final Result [facility] [address] [place] [address], [place] [phone] * (ABNORMAL) CBC W/DIFF AUTOMATED (12/22/2021 5:52 AM CDT) WBC 8.6 4.5 - 11.0 x10'3/uL 12/22/2021 6:[address] [facility] RBC 4.01(L) 4.20 - 5.40 x10'6/uL 12/22/2021 6:[address] [facility] HGB 12.1 12.0 - 16.0 G/DL 12/22/2021 6:[address] [facility] HCT 36.2(L) 38.0 - 48.0 % 12/22/2021 6:[address] [facility] MCV 90.3 81.0 - 99.0 FL 12/22/2021 6:[address] [facility] MCH 30.2 27.0 - 31.0 PG 12/22/2021 6:[address] [facility] MCHC 33.4 32.0 - 36.0 G/DL 12/22/2021 6:[address] [facility] RDW 12.7 11.5 - 14.5 % 12/22/2021 6:[address] [facility] PLT 321 130 - 400 x10'3/uL 12/22/2021 6:[address] [facility] MPV 10.9 9.3 - 12.2 FL 12/22/2021 6:[address] [facility] DIFFERENTIAL TYPE AUTOMATED DIFFERENTIAL 12/22/2021 6:[address] [facility] NEUTROPHILS % 46.7 % 12/22/2021 6:[address] [facility] LYMPHOCYTES % 46.8 % 12/22/2021 6:[address] [facility] MONOCYTES % 4.4 % 12/22/2021 6:[address] [facility] EOSINOPHILS 1.2 % 12/22/2021 6:[address] [facility] BASOPHILS 0.7 % 12/22/2021 6:[address] [facility] IMMATURE GRANS % 0.2 % 12/23/19 6:[address] [facility] ABS. NEUTROPHILS TOTAL 4.00 1.80 - 7.70 x10'3/uL 12/22/2021 6:[address] [facility] ABS. LYMPHOCYTES 4.01 1.00 - 4.80 x10'3/uL 12/22/2021 6:[address] [facility] ABS. MONOCYTES 0.38 0.24 - 0.86 x10'3/uL 12/22/2021 6:[address] [facility] ABS. EOSINOPHILS 0.10 0.04 - 0.36 x10'3/uL 12/22/2021 6:[address] [facility] ABS. BASOPHILS 0.06 0.01 - 0.08 x10'3/uL 12/22/2021 6:[address] [facility] ABS. IMMATURE GRANULOCYTES 0.02 0.00 - 0.49 x10'3/uL 12/22/2021 6:[address] [facility] 12/22/2021 5:52 AM CDT Eduardo Aguillon CHANGE COORDINATOR LABORATORY Final Result [facility] [address] [place] [address], * CORONAVIRUS (COVID-19) ANTIGEN (In-house [place]) (12/22/2021 5:46 AM CDT) [facility] CORONAVIRUS ANTIGEN IA NEGATIVE NEGATIVE 12/22/2021 6:[address] [facility] Comment: NEGATIVE RESULTS SHOULD BE TREATED [...] SPECIMEN TYPE NASAL 12/22/2021 5:[address] [facility] FIRST TEST NO 12/22/2021 5:[address] [facility] EMPLOYED IN HEALTHCARE NO 12/22/2021 5:[address] [facility] SYMPTOMATIC DEFINED BY CDC NO 12/22/2021 5:[address] [facility] HOSPITALIZATION STATUS YES 12/22/2021 5:[address] [facility] PATIENT IN ICU NO 12/22/2021 5:[address] [facility] RESIDENT OF [facility] NO 12/22/2021 5:[address] [facility] NOT 12/22/2021 5:[address] [facility] NASAL NASAL STRUCTURE / Unknown 12/22/2021 5:46 AM CDT Roxana BROOKENP MICROBIOLOGY - GENERAL OR DERABLES Final Result [facility] [address] [place] [address], [place] [phone] * (ABNORMAL) POCT glucose (12/22/2021 5:01 AM CDT) Pathologist [facility] GLUCOSE POC 153(H) 70 - 99 mg/dL 12/22/2021 5:[address] [facility] 12/22/2021 5:01 AM CDT Roxana Angelique HUGHES POCT ORDERABLES - DEVICE Final Result [facility] [address] [place] [address], [place] [phone] * Pathology (12/22/2021 12:00 AM CDT) COPATH REPORT ?[facility] ? [address] ? [place], [place] ??[address] ? [id number] ? Department of Pathology ? Pathology Report ? SURGICAL FINAL REPORT Patient Name: TYSON MCNEAL ? : 1970 (Age: 51) ? Location: [id number] Gender: F ?Collected Date: 12/22/2021 Med Rec #: [id number] ?Date Received: 12/22/2021 Date Reported: 12/23/2021 Provider: DESIREE MACKENZIE MD ?WANDA URBINA MD ?DAVID MARIE C ?EDUARDO AGUILLON CHANGE COORDINATOR ?ROXANA Merino GERALDINE IMPLEMENTATION TECHNICIAN ?HUBERT CHEEK DPM Specimen(s) A: Bone, biopsy, [...] Signed Out ? TEE MUSE MD Pathologist OJL:[facility] Microscopic Description: The microscopic examination substantiates the [...] in toto in cassette B1, following decalcification. :[facility] Billing Fee Code(s): 68441(2), 10632(2) [facility] TISSUE STRUCTURE OF TOE OF RIGHT FOOT / Unknown 12/22/2021 7:14 AM CDT Hubert Cheek DPRonnie PATHOLOGY/CYTOLOGY ORDERA BLES Final Result Performing Organization Address City/[facility]/ZIP Co de Phone Number [facility] [address] [place] [address], [place] [phone] * (ABNORMAL) POCT glucose (12/21/2021 8:17 PM CDT) GLUCOSE POC 275(H) 70 - 99 mg/dL 12/21/2021 8:[address] [facility] 12/21/2021 8:17 PM CDT Roxana Merino Geraldine HUGHES POCT ORDERABLES - DEVICE Final Result Performing Organization Address City/[facility]/ZIP Co de Phone Number [facility] [address] [place] [address], [place] [phone] * (ABNORMAL) POCT glucose (12/21/2021 4:49 PM CDT) GLUCOSE POC 275(H) 70 - 99 mg/dL 12/21/2021 4:[address] [facility] 12/21/2021 4:49 PM CDT Roxana Bradleyxavier HUGHES POCT ORDERABLES - DEVICE Final Result Performing Organization Address City/[facility]/ZIP Co de Phone Number [facility] [address] [place] [address], [place] [phone] * (ABNORMAL) POCT glucose (12/21/2021 12:13 PM CDT) GLUCOSE POC 287(H) 70 - 99 mg/dL 12/21/2021 1:[address] [facility] 12/21/2021 12:1 3 PM CDT Roxana Chandler APNP POCT ORDERABLES - DEVICE Final Result [facility] [address] [place] [address], [place] [phone] * (ABNORMAL) BASIC METABOLIC PANEL (12/21/2021 7:42 AM CDT) GLUCOSE 162(H) 70 - 99 MG/DL 12/21/2021 8:[address] [facility] BUN 26(H) 7 - 18 MG/DL 12/21/2021 8:[address] [facility] CREATININE S/P/B 1.21(H) 0.55 - 1.02 MG/DL 12/21/2021 8:[address] [facility] SODIUM S/P/B 138 136 - 145 MMOL/L 12/21/2021 8:[address] [facility] POTASSIUM S/P/B 4.7 3.5 - 5.1 MMOL/L 12/21/2021 8:[address] [facility] CHLORIDE S/P/B 105 100 - 108 MMOL/L 12/21/2021 8:[address] [facility] CO2 28.6 21 - 32 MMOL/L 12/21/2021 8:[address] [facility] CALCIUM S/P/B 9.8 8.5 - 10.1 MG/DL 12/21/2021 8:[address] [facility] ANION GAP 4.4(L) 5 - 15 MMOL/L 12/21/2021 8:[address] [facility] BUN CREATININE RATIO 21.5 6 - 26 12/21/2021 8:[address] [facility] GFR ESTIMATE 55(L) >90 ML/MIN/1.7 3 M2 12/21/2021 8:[address] [facility] Comment: NOTE: eGFR is not calculated for patients <18 years of age. This is an estimated GFR calculation using the new CKD EPI creatinine equation without race and so does not require a correction factor for race. This estimated GFR should not be used for calculating drug doses. 12/21/2021 7:42 AM CDT Eduardo Aguillon CHANGE COORDINATOR LABORATORY Final Result [facility] [address] [place] [address], * (ABNORMAL) CBC W/DIFF AUTOMATED (12/21/2021 7:42 AM CDT) WBC 7.3 4.5 - 11.0 x10'3/uL 12/21/2021 7:[address] [facility] RBC 4.08(L) 4.20 - 5.40 x10'6/uL 12/21/2021 7:[address] [facility] HGB 12.2 12.0 - 16.0 G/DL 12/21/2021 7:[address] [facility] HCT 37.0(L) 38.0 - 48.0 % 12/21/2021 7:[address] [facility] MCV 90.7 81.0 - 99.0 FL 12/21/2021 7:[address] [facility] MCH 29.9 27.0 - 31.0 PG 12/21/2021 7:[address] [facility] MCHC 33.0 32.0 - 36.0 G/DL 12/21/2021 7:[address] [facility] RDW 12.9 11.5 - 14.5 % 12/21/2021 7:[address] [facility] PLT 293 130 - 400 x10'3/uL 12/21/2021 7:[address] [facility] MPV 10.7 9.3 - 12.2 FL 12/21/2021 7:[address] [facility] DIFFERENTIAL TYPE AUTOMATED DIFFERENTIAL 12/21/2021 7:[address] [facility] NEUTROPHILS % 55.5 % 12/21/2021 7:[address] [facility] LYMPHOCYTES % 36.5 % 12/21/2021 7:[address] [facility] MONOCYTES % 5.5 % 12/21/2021 7:[address] [facility] EOSINOPHILS 1.5 % 12/21/2021 7:[address] [facility] BASOPHILS 0.7 % 12/21/2021 7:[address] [facility] IMMATURE GRANS % 0.3 % 12/22/19 7:[address] [facility] ABS. NEUTROPHILS TOTAL 4.04 1.80 - 7.70 x10'3/uL 12/21/2021 7:[address] [facility] ABS. LYMPHOCYTES 2.65 1.00 - 4.80 x10'3/uL 12/21/2021 7:[address] [facility] ABS. MONOCYTES 0.40 0.24 - 0.86 x10'3/uL 12/21/2021 7:[address] [facility] ABS. EOSINOPHILS 0.11 0.04 - 0.36 x10'3/uL 12/21/2021 7:[address] [facility] ABS. BASOPHILS 0.05 0.01 - 0.08 x10'3/uL 12/21/2021 7:[address] [facility] ABS. IMMATURE GRANULOCYTES 0.02 0.00 - 0.49 x10'3/uL 12/21/2021 7:[address] [facility] 12/21/2021 7:42 AM CDT Eduardo Aguillon CHANGE COORDINATOR LABORATORY Final Result Performing Organization Address [facility]/ZIP Co de Phone Number [facility] [address] [place] [address], * Vancomycin Random Level (12/21/2021 7:42 AM CDT) VANCOMYCIN RANDOM 23.4 MCG/ML 12/21/2021 8:[address] [facility] Comment:NO THERAPEUTIC RANGE AVAILABLE VANCOMYCIN UNKNOWN LAST DOSE 12/21/2021 9:[address] [facility] 12/21/2021 7:42 AM CDT Wanda Mercer CHANGE COORDINATOR LABORATORY Final Resul t Performing Organization Address City/[facility]/ZIP Co de Phone Number [facility] [address] [place] [address], [place] [phone] * MAGNESIUM (12/21/2021 7:42 AM CDT) MAGNESIUM 2.0 1.8 - 2.4 MG/DL 12/21/2021 8:[address] [facility] 12/21/2021 7:42 AM CDT Eduardo Aguillon CHANGE COORDINATOR LABORATORY Final Result Performing Organization Address [facility]/ZIP Co de Phone Number [facility] [address] [place] [address], [place] [phone] * (ABNORMAL) POCT glucose (12/21/2021 6:35 AM CDT) GLUCOSE POC 155(H) 70 - 99 mg/dL 12/21/2021 6:[address] [facility] 12/21/2021 6:35 AM CDT Roxana Chandler APSUSAN POCT ORDERABLES - DEVICE Final Result Performing Organization Address City/[facility] [[email or web address]] Co de Phone Number [facility] [address] [place] [address], [place] [phone] * (ABNORMAL) POCT glucose (12/20/2021 9:23 PM CDT) GLUCOSE POC 231(H) 70 - 99 mg/dL 12/20/2021 9:[address] [facility] 12/20/2021 9:23 PM CDT us Eduardo Aguillon CHANGE COORDINATOR POCT ORDERABLES - DEVICE Final Result Performing Organization Address City/[facility]/ZIP Co de Phone Number [address] [address], [place] [phone] * MRI FOOT LT WO CON (12/20/2021 [...] Gastelum MD, 12/20/2021 9:10 PM Eduardo Aguillon CHANGE COORDINATOR MRI Final Result * (ABNORMAL) POCT glucose (12/20/2021 4:35 PM CDT) GLUCOSE POC 225(H) 70 - 99 mg/dL 12/20/2021 4:[address] [facility] 12/20/2021 4:35 PM CDT Eduardo Aguillon CHANGE COORDINATOR POCT ORDERABLES - DEVICE Final Result [facility] [address] [place] [address], [place] [phone] * (ABNORMAL) POCT glucose (12/20/2021 11:37 AM CDT) GLUCOSE POC 233(H) 70 - 99 mg/dL 12/20/2021 11:[address] [facility] 12/20/2021 11:3 7 AM CDT Eduardo Aguillon APRN POCT ORDERABLES - DEVICE Final Result [facility] [address] [place] [address], [place] [phone] * (ABNORMAL) BASIC METABOLIC PANEL (12/20/2021 9:40 AM CDT) GLUCOSE 182(H) 70 - 99 MG/DL 12/20/2021 10:[address] [facility] BUN 24(H) 7 - 18 MG/DL 12/20/2021 10:[address] [facility] CREATININE S/P/B 1.14(H) 0.55 - 1.02 MG/DL 12/20/2021 10:[address] [facility] SODIUM S/P/B 137 136 - 145 MMOL/L 12/20/2021 10:[address] [facility] POTASSIUM S/P/B 4.8 3.5 - 5.1 MMOL/L 12/20/2021 10:[address] [facility] CHLORIDE S/P/B 105 100 - 108 MMOL/L 12/20/2021 10:[address] [facility] CO2 26.8 21 - 32 MMOL/L 12/20/2021 10:[address] [facility] CALCIUM S/P/B 9.6 8.5 - 10.1 MG/DL 12/20/2021 10:[address] [facility] ANION GAP 5.2 5 - 15 MMOL/L 12/20/2021 10:[address] [facility] BUN CREATININE RATIO 21.1 6 - 26 12/20/2021 10:[address] [facility] GFR ESTIMATE 59(L) >90 ML/MIN/1.7 3 M2 12/20/2021 10:[address] [facility] Comment: NOTE: eGFR is not calculated for patients <18 years of age. This is an estimated GFR calculation using the new CKD EPI creatinine equation without race and so does not require a correction factor for race. This estimated GFR should not be used for calculating drug doses. 12/20/2021 9:40 AM CDT Eduardo Aguillon CHANGE COORDINATOR LABORATORY Final Result [facility] [address] [place] [address], [place] [phone] * (ABNORMAL) CBC W/DIFF AUTOMATED (12/20/2021 9:40 AM CDT) WBC 8.3 4.5 - 11.0 x10'3/uL 12/20/2021 10:[address] [facility] RBC 4.03(L) 4.20 - 5.40 x10'6/uL 12/20/2021 10:[address] [facility] HGB 12.2 12.0 - 16.0 G/DL 12/20/2021 10:[address] [facility] HCT 36.4(L) 38.0 - 48.0 % 12/20/2021 10:[address] [facility] MCV 90.3 81.0 - 99.0 FL 12/20/2021 10:[address] [facility] MCH 30.3 27.0 - 31.0 PG 12/20/2021 10:[address] [facility] MCHC 33.5 32.0 - 36.0 G/DL 12/20/2021 10:[address] [facility] RDW 12.8 11.5 - 14.5 % 12/20/2021 10:[address] [facility] PLT 319 130 - 400 x10'3/uL 12/20/2021 10:[address] [facility] MPV 11.1 9.3 - 12.2 FL 12/20/2021 10:[address] [facility] DIFFERENTIAL TYPE AUTOMATED DIFFERENTIAL 12/20/2021 10:[address] [facility] NEUTROPHILS % 60.2 % 12/20/2021 10:[address] [facility] LYMPHOCYTES % 32.6 % 12/20/2021 10:[address] [facility] MONOCYTES % 5.3 % 12/20/2021 10:[address] [facility] EOSINOPHILS 1.1 % 12/20/2021 10:[address] [facility] BASOPHILS 0.6 % 12/20/2021 10:[address] [facility] IMMATURE GRANS % 0.2 % 12/21/19 10:[address] [facility] ABS. NEUTROPHILS TOTAL 5.01 1.80 - 7.70 x10'3/uL 12/20/2021 10:[address] [facility] ABS. LYMPHOCYTES 2.71 1.00 - 4.80 x10'3/uL 12/20/2021 10:[address] [facility] ABS. MONOCYTES 0.44 0.24 - 0.86 x10'3/uL 12/20/2021 10:[address] [facility] ABS. EOSINOPHILS 0.09 0.04 - 0.36 x10'3/uL 12/20/2021 10:[address] [facility] ABS. BASOPHILS 0.05 0.01 - 0.08 x10'3/uL 12/20/2021 10:[address] [facility] ABS. IMMATURE GRANULOCYTES 0.02 0.00 - 0.49 x10'3/uL 12/20/2021 10:[address] [facility] 12/20/2021 9:40 AM CDT Lino Stephen Aguillon CHANGE COORDINATOR LABORATORY Final Result [facility] [address] [place] [address], * MAGNESIUM (12/20/2021 9:40 AM CDT) MAGNESIUM 2.0 1.8 - 2.4 MG/DL 12/20/2021 10:[address] [facility] 12/20/2021 9:40 AM CDT Eduardo Mitchell Oscar CHANGE COORDINATOR LABORATORY Final Result Performing Organization Address City/[facility]/ZIP Co de Phone Number [facility] [address] [place] [address], * (ABNORMAL) POCT glucose (12/20/2021 6:28 AM CDT) GLUCOSE POC 200(H) 70 - 99 mg/dL 12/20/2021 6:[address] [facility] 12/20/2021 6:28 AM CDT Eduardo Mitchell Oscar CHANGE COORDINATOR POCT ORDERABLES - DEVICE Final Result Performing Organization Address [facility] [[email or web address]] Co de Phone Number [facility] [address] [place] [phone], * (ABNORMAL) POCT glucose (12/20/2021 2:19 AM CDT) GLUCOSE POC 272(H) 70 - 99 mg/dL 12/20/2021 2:[address] [facility] 12/20/2021 2:19 AM CDT Roxana Chandler APSUSAN POCT ORDERABLES - DEVICE Final Result Performing Organization Address City/[facility]/ZIP Co de Phone Number [facility] [address] [place] [phone], * (ABNORMAL) POCT glucose (12/19/2021 8:42 PM CDT) GLUCOSE POC 300(H) 70 - 99 mg/dL 12/19/2021 8:[address] [facility] 12/19/2021 8:42 PM CDT Roxana Chandler ELLEN POCT ORDERABLES - DEVICE Final Result [facility] [address] [place] [address], [place] [phone] * (ABNORMAL) URINALYSIS WI REFLEX TO CULTURE (12/19/2021 4:46 PM CDT) SPECIMEN TYPE URINE CLEAN CATCH 12/19/2021 4:[address] [facility] COLOR (U) LIGHT YELLOW 12/19/2021 5:[address] [facility] TRANSPARENCY CLEAR 12/19/2021 5:[address] [facility] SPECIFIC GRAVITY (U) 1.014 1.001 - 1.030 12/19/2021 5:[address] [facility] U PH 5.5 5.0 - 9.0 12/19/2021 5:[address] [facility] LEUKOCYTES (U) NEGATIVE NEGATIVE 12/19/2021 5:[address] [facility] NITRITES NEGATIVE NEGATIVE 12/19/2021 5:[address] [facility] PROTEIN (U) NEGATIVE <30 MG/DL 12/19/2021 5:[address] [facility] URINE GLUCOSE NORMAL NORMAL MG/DL 12/19/2021 5:[address] [facility] KETONES MG/DL (U) NEGATIVE NEGATIVE MG/DL 12/19/2021 5:[address] [facility] UROBILINOGEN NORMAL NORMAL MG/DL 12/19/2021 5:[address] [facility] BILIRUBIN (U) NEGATIVE NEGATIVE MG/DL 12/19/2021 5:[address] [facility] BLOOD (U) NEGATIVE NEGATIVE 12/19/2021 5:[address] [facility] CULTURE & SENSITIVITY INDICATED? CULTURE IS NOT INDICATED 12/19/2021 5:[address] [facility] MUCUS RARE /LPF 12/19/2021 5:[address] [facility] WBC/HPF 1 <6 /HPF 12/19/2021 5:[address] [facility] RBC/HPF <1 <6 /HPF 12/19/2021 5:[address] [facility] BACTERIA (U) RARE(A) NONE /HPF 12/19/2021 5:[address] [facility] SQUAMOUS EPITHELIALS RARE /HPF 12/19/2021 5:[address] [facility] URINE SPECIMEN OBTAINED BY CLEAN CATCH PROCEDURE / Unknown 12/19/2021 4:46 PM CDT Roxana HUGHES URINE ORDERABLES Final Re sult Performing Organization Address City/[facility]/ZIP Co de Phone Number [facility] [address] [place] [id number], [place] [phone] * (ABNORMAL) POCT glucose (12/19/2021 4:33 PM CDT) GLUCOSE POC 162(H) 70 - 99 mg/dL 12/19/2021 4:[address] [facility] 12/19/2021 4:33 PM CDT Roxana HUGHES POCT ORDERABLES - DEVICE Final Result [facility] [address] [place] [address], [place] [phone] * (ABNORMAL) POCT glucose (12/19/2021 12:38 PM CDT) GLUCOSE POC 202(H) 70 - 99 mg/dL 12/19/2021 12:[address] [facility] 12/19/2021 12:3 8 PM CDT Roxana Chandler APSUSAN POCT ORDERABLES - DEVICE Final Result [facility] [address] [place] [address], [place] [phone] * (ABNORMAL) COMPREHENSIVE METABOLIC PANEL (12/19/2021 5:30 AM CDT) GLUCOSE 91 70 - 99 MG/DL 12/19/2021 6:[address] [facility] BUN 21(H) 7 - 18 MG/DL 12/19/2021 6:[address] [facility] CREATININE S/P/B 1.02 0.55 - 1.02 MG/DL 12/19/2021 6:[address] [facility] SODIUM S/P/B 137 136 - 145 MMOL/L 12/19/2021 6:[address] [facility] POTASSIUM S/P/B 4.5 3.5 - 5.1 MMOL/L 12/19/2021 6:[address] [facility] CHLORIDE S/P/B 105 100 - 108 MMOL/L 12/19/2021 6:[address] [facility] CO2 28.8 21 - 32 MMOL/L 12/19/2021 6:[address] [facility] CALCIUM S/P/B 9.4 8.5 - 10.1 MG/DL 12/19/2021 6:[address] [facility] BILIRUBIN TOTAL S/P/B 0.3 0.2 - 1.2 MG/DL 12/19/2021 6:[address] [facility] Comment: THIS ASSAY IS NOT RECOMMENDED FOR PATIENTS UNDERGOING TREATMENT WITH ELTROMBOPAG DUE TO THE POTENTIAL FOR FALSELY ELEVATED RESULTS. TOTAL PROTEIN S/P/B 8.0 6.4 - 8.2 G/DL 12/19/2021 6:[address] [facility] ALBUMIN S/P/B 2.9(L) 3.4 - 5.0 G/DL 12/19/2021 6:[address] [facility] AST 16 15 - 37 U/L 12/19/2021 6:07 AM [facility] ALT 22 14 - 55 U/L 12/19/2021 6:07 AM [facility] ALKALINE PHOSPHATASE S/P/B 120 50 - 136 U/L 12/19/2021 6:07 AM [facility] ANION GAP 3.2(L) 5 - 15 MMOL/L 12/19/2021 6:07 AM [facility] BUN CREATININE RATIO 20.6 6 - 26 12/19/2021 6:07 AM [facility] A/G RATIO 0.6(L) 1.0 - 2.0 RATIO 12/19/2021 6:07 AM [facility] GFR ESTIMATE 67(L) >90 ML/MIN/1.7 3 M2 12/19/2021 6:07 AM [facility] Comment: NOTE: eGFR is not calculated for patients <18 years of age. This is an estimated GFR calculation using the new CKD EPI creatinine equation without race and so does not require a correction factor for race. This estimated GFR should not be used for calculating drug doses. 12/19/2021 5:30 AM CDT Eduardo Aguillon CHANGE COORDINATOR LABORATORY Final Result [facility] [address] [place] [address], * (ABNORMAL) CBC W/DIFF AUTOMATED (12/19/2021 5:30 AM CDT) WBC 8.6 4.5 - 11.0 x10'3/uL 12/19/2021 5:[address] [facility] RBC 3.74(L) 4.20 - 5.40 x10'6/uL 12/19/2021 5:[address] [facility] HGB 11.3(L) 12.0 - 16.0 G/DL 12/19/2021 5:[address] [facility] HCT 33.7(L) 38.0 - 48.0 % 12/19/2021 5:[address] [facility] MCV 90.1 81.0 - 99.0 FL 12/19/2021 5:[address] [facility] MCH 30.2 27.0 - 31.0 PG 12/19/2021 5:[address] [facility] MCHC 33.5 32.0 - 36.0 G/DL 12/19/2021 5:[address] [facility] RDW 12.9 11.5 - 14.5 % 12/19/2021 5:[address] [facility] PLT 289 130 - 400 x10'3/uL 12/19/2021 5:[address] [facility] MPV 10.8 9.3 - 12.2 FL 12/19/2021 5:[address] [facility] DIFFERENTIAL TYPE AUTOMATED DIFFERENTIAL 12/19/2021 5:[address] [facility] NEUTROPHILS % 53.4 % 12/19/2021 5:[address] [facility] LYMPHOCYTES % 39.1 % 12/19/2021 5:[address] [facility] MONOCYTES % 5.7 % 12/19/2021 5:[address] [facility] EOSINOPHILS 0.9 % 12/19/2021 5:[address] [facility] BASOPHILS 0.5 % 12/19/2021 5:[address] [facility] IMMATURE GRANS % 0.4 % 12/20/19 5:[address] [facility] ABS. NEUTROPHILS TOTAL 4.57 1.80 - 7.70 x10'3/uL 12/19/2021 5:[address] [facility] ABS. LYMPHOCYTES 3.35 1.00 - 4.80 x10'3/uL 12/19/2021 5:[address] [facility] ABS. MONOCYTES 0.49 0.24 - 0.86 x10'3/uL 12/19/2021 5:[address] [facility] ABS. EOSINOPHILS 0.08 0.04 - 0.36 x10'3/uL 12/19/2021 5:[address] [facility] ABS. BASOPHILS 0.04 0.01 - 0.08 x10'3/uL 12/19/2021 5:[address] [facility] ABS. IMMATURE GRANULOCYTES 0.03 0.00 - 0.49 x10'3/uL 12/19/2021 5:[address] [facility] 12/19/2021 5:30 AM CDT Eduardo Aguillon APRN LABORATORY Final Result [facility] [address] [place] [address], [place] [phone] * Vancomycin Random Level (12/19/2021 5:30 AM CDT) VANCOMYCIN RANDOM 22.4 MCG/ML 12/19/2021 6:[address] [facility] Comment:NO THERAPEUTIC RANGE AVAILABLE VANCOMYCIN UNKNOWN LAST DOSE 12/19/2021 8:[address] [facility] 12/19/2021 5:30 AM CDT Eduardo Aguillon APRN LABORATORY Final Result Performing Organization Address City/[facility]/ZIP Co de Phone Number [facility] [address] [place] [address], [place] [phone] * MAGNESIUM (12/19/2021 5:30 AM CDT) MAGNESIUM 1.9 1.8 - 2.4 MG/DL 12/19/2021 6:[address] [facility] 12/19/2021 5:30 AM CDT Eduardo Aguillon APRN LABORATORY Final Result [facility] [address] [place] [address], [place] [phone] * POCT glucose (12/19/2021 1:14 AM CDT) GLUCOSE POC 93 70 - 99 mg/dL 12/19/2021 1:[address] [facility] 12/19/2021 1:14 AM CDT Eduardo Aguillon CHANGE COORDINATOR POCT ORDERABLES - DEVICE Final Result [facility] [address] [place] [address], [place] [phone] * (ABNORMAL) POCT glucose (12/19/2021 12:41 AM CDT) GLUCOSE POC 53(L) 70 - 99 mg/dL 12/19/2021 12:[address] [facility] 12/19/2021 12:4 1 AM CDT Eduardo Aguillon CHANGE COORDINATOR POCT ORDERABLES - DEVICE Final Result Performing Organization Address City/[facility]/ZIP Co de Phone Number [facility] [address] [place] [address], [place] [phone] * (ABNORMAL) POCT glucose (12/18/2021 9:14 PM CDT) GLUCOSE POC 114(H) 70 - 99 mg/dL 12/18/2021 9:[address] [facility] 12/18/2021 9:14 PM CDT Eduardo Aguillon CHANGE COORDINATOR POCT ORDERABLES - DEVICE Final Result [facility] [address] [place] [address], [place] [phone] * (ABNORMAL) POCT glucose (12/18/2021 5:51 PM CDT) GLUCOSE POC 112(H) 70 - 99 mg/dL 12/18/2021 7:[address] [facility] 12/18/2021 5:51 PM CDT Eduardo Aguillon CHANGE COORDINATOR POCT ORDERABLES - DEVICE Final Result [facility] [address] [place] [address], [place] [phone] * (ABNORMAL) POCT glucose (12/18/2021 12:29 PM CDT) GLUCOSE POC 133(H) 70 - 99 mg/dL 12/18/2021 1:[address] [facility] 12/18/2021 12:2 9 PM CDT Eduardo Aguillon APRN POCT ORDERABLES - DEVICE Final Result Performing Organization Address City/[facility] [[email or web address]] Co de Phone Number [facility] [address] [place] [address], [place] [phone] * (ABNORMAL) COMPREHENSIVE METABOLIC PANEL (12/18/2021 5:30 AM CDT) GLUCOSE 131(H) 70 - 99 MG/DL 12/18/2021 6:[address] [facility] BUN 19(H) 7 - 18 MG/DL 12/18/2021 6:[address] [facility] CREATININE S/P/B 0.99 0.55 - 1.02 MG/DL 12/18/2021 6:[address] [facility] SODIUM S/P/B 139 136 - 145 MMOL/L 12/18/2021 6:[address] [facility] POTASSIUM S/P/B 4.0 3.5 - 5.1 MMOL/L 12/18/2021 6:[address] [facility] CHLORIDE S/P/B 107 100 - 108 MMOL/L 12/18/2021 6:[address] [facility] CO2 27.0 21 - 32 MMOL/L 12/18/2021 6:[address] [facility] CALCIUM S/P/B 8.9 8.5 - 10.1 MG/DL 12/18/2021 6:[address] [facility] BILIRUBIN TOTAL S/P/B 0.2 0.2 - 1.2 MG/DL 12/18/2021 6:[address] [facility] Comment: THIS ASSAY IS NOT RECOMMENDED FOR PATIENTS UNDERGOING TREATMENT WITH ELTROMBOPAG DUE TO THE POTENTIAL FOR FALSELY ELEVATED RESULTS. TOTAL PROTEIN S/P/B 7.7 6.4 - 8.2 G/DL 12/18/2021 6:[address] [facility] ALBUMIN S/P/B 2.8(L) 3.4 - 5.0 G/DL 12/18/2021 6:[address] [facility] AST 13(L) 15 - 37 U/L 12/18/2021 6:[address] [facility] ALT 17 14 - 55 U/L 12/18/2021 6:[address] [facility] ALKALINE PHOSPHATASE S/P/B 118 50 - 136 U/L 12/18/2021 6:[address] [facility] ANION GAP 5.0 5 - 15 MMOL/L 12/18/2021 6:[address] [facility] BUN CREATININE RATIO 19.2 6 - 26 12/18/2021 6:[address] [facility] A/G RATIO 0.6(L) 1.0 - 2.0 RATIO 12/18/2021 6:[address] [facility] GFR ESTIMATE 69(L) >90 ML/MIN/1.7 3 M2 12/18/2021 6:[address] [facility] Comment: NOTE: eGFR is not calculated for patients <18 years of age. This is an estimated GFR calculation using the new CKD EPI creatinine equation without race and so does not require a correction factor for race. This estimated GFR should not be used for calculating drug doses. 12/18/2021 5:30 AM CDT Wanda Mercer CHANGE COORDINATOR LABORATORY Final Resul t [facility] [address] [place] [address], * (ABNORMAL) CBC W/DIFF AUTOMATED (12/18/2021 5:30 AM CDT) WBC 7.9 4.5 - 11.0 x10'3/uL 12/18/2021 5:[address] [facility] RBC 3.65(L) 4.20 - 5.40 x10'6/uL 12/18/2021 5:[address] [facility] HGB 11.1(L) 12.0 - 16.0 G/DL 12/18/2021 5:[address] [facility] HCT 32.6(L) 38.0 - 48.0 % 12/18/2021 5:[address] [facility] MCV 89.3 81.0 - 99.0 FL 12/18/2021 5:[address] [facility] MCH 30.4 27.0 - 31.0 PG 12/18/2021 5:[address] [facility] MCHC 34.0 32.0 - 36.0 G/DL 12/18/2021 5:[address] [facility] RDW 12.7 11.5 - 14.5 % 12/18/2021 5:[address] [facility] PLT 287 130 - 400 x10'3/uL 12/18/2021 5:[address] [facility] MPV 10.8 9.3 - 12.2 FL 12/18/2021 5:[address] [facility] DIFFERENTIAL TYPE AUTOMATED DIFFERENTIAL 12/18/2021 5:[address] [facility] NEUTROPHILS % 53.2 % 12/18/2021 5:[address] [facility] LYMPHOCYTES % 39.9 % 12/18/2021 5:[address] [facility] MONOCYTES % 5.0 % 12/18/2021 5:[address] [facility] EOSINOPHILS 1.3 % 12/18/2021 5:[address] [facility] BASOPHILS 0.5 % 12/18/2021 5:[address] [facility] IMMATURE GRANS % 0.1 % 12/19/19 5:[address] [facility] ABS. NEUTROPHILS TOTAL 4.18 1.80 - 7.70 x10'3/uL 12/18/2021 5:[address] [facility] ABS. LYMPHOCYTES 3.13 1.00 - 4.80 x10'3/uL 12/18/2021 5:[address] [facility] ABS. MONOCYTES 0.39 0.24 - 0.86 x10'3/uL 12/18/2021 5:[address] [facility] ABS. EOSINOPHILS 0.10 0.04 - 0.36 x10'3/uL 12/18/2021 5:[address] [facility] ABS. BASOPHILS 0.04 0.01 - 0.08 x10'3/uL 12/18/2021 5:[address] [facility] ABS. IMMATURE GRANULOCYTES 0.01 0.00 - 0.49 x10'3/uL 12/18/2021 5:[address] [facility] 12/18/2021 5:30 AM CDT Wanda Mercer APRN LABORATORY Final Resul t Performing Organization Address City/[facility]/ZIP Co de Phone Number [facility] [address] [place] [address], [place] [phone] * Vancomycin Random Level (12/18/2021 5:30 AM CDT) VANCOMYCIN RANDOM 22.9 MCG/ML 12/18/2021 6:[address] [facility] Comment:NO THERAPEUTIC RANGE AVAILABLE VANCOMYCIN UNKNOWN LAST DOSE 12/18/2021 6:[address] [facility] 12/18/2021 5:30 AM CDT Wanda Maynard MD LABORATORY Final Result Performing Organization Address City/[facility]/ZIP Co de Phone Number [facility] [address] [place] [address], [place] [phone] * (ABNORMAL) POCT glucose (12/17/2021 11:02 PM CDT) GLUCOSE POC 108(H) 70 - 99 mg/dL 12/17/2021 11:[address] [facility] 12/17/2021 11:0 2 PM CDT David Wolf PA-C POCT ORDERABLES - DEVICE Katheryn l Result [facility] [address] [place] [address], [place] [phone] * (ABNORMAL) POCT glucose (12/17/2021 10:28 PM CDT) GLUCOSE POC 67(L) 70 - 99 mg/dL 12/17/2021 10:[address] [facility] 12/17/2021 10:2 8 PM CDT David MARIE-C POCT ORDERABLES - DEVICE Katheryn l Result Performing Organization Address City/[facility]/ZIP Co de Phone Number [facility] [address] [place] [address], [place] [phone] * (ABNORMAL) POCT glucose (12/17/2021 7:49 PM CDT) GLUCOSE POC 164(H) 70 - 99 mg/dL 12/17/2021 7:[address] [facility] 12/17/2021 7:49 PM CDT David Schofield PA-C POCT ORDERABLES - DEVICE Katheryn l Result [facility] [address] [place] [address], [place] [phone] * (ABNORMAL) POCT glucose (12/17/2021 5:12 PM CDT) GLUCOSE POC 187(H) 70 - 99 mg/dL 12/17/2021 7:[address] [facility] 12/17/2021 5:12 PM CDT David Schofield PA-C POCT ORDERABLES - DEVICE Katheryn l Result Performing Organization Address City/[facility]/ZIP Co de Phone Number [facility] [address] [place] [address], [place] [phone] * (ABNORMAL) POCT glucose (12/17/2021 12:54 PM CDT) GLUCOSE POC 139(H) 70 - 99 mg/dL 12/17/2021 12:[address] [facility] 12/17/2021 12:5 4 PM CDT David MARIE-C POCT ORDERABLES - DEVICE Katheryn l Result Performing Organization Address City/[facility] de Phone Number [address] [address], [place] [phone] * MRI FOOT RT WO CON (12/17/2021 [...] Ward DO, 12/17/2021 12:47 PM Wanda Mercer CHANGE COORDINATOR MRI Final Resul t * MAGNESIUM (12/17/2021 6:10 AM CDT) MAGNESIUM 2.1 1.8 - 2.4 MG/DL 12/17/2021 8:[address] [facility] 12/17/2021 6:10 AM CDT David Schofield PA-C LABORATORY Final Result [facility] [address] [place] [address], [place] [phone] * (ABNORMAL) COMPREHENSIVE METABOLIC PANEL (12/17/2021 6:10 AM CDT) GLUCOSE 154(H) 70 - 99 MG/DL 12/17/2021 6:[address] [facility] BUN 17 7 - 18 MG/DL 12/17/2021 6:[address] [facility] CREATININE S/P/B 0.92 0.55 - 1.02 MG/DL 12/17/2021 6:[address] [facility] SODIUM S/P/B 137 136 - 145 MMOL/L 12/17/2021 6:[address] [facility] POTASSIUM S/P/B 3.9 3.5 - 5.1 MMOL/L 12/17/2021 6:[address] [facility] CHLORIDE S/P/B 105 100 - 108 MMOL/L 12/17/2021 6:[address] [facility] CO2 29.7 21 - 32 MMOL/L 12/17/2021 6:[address] [facility] CALCIUM S/P/B 9.2 8.5 - 10.1 MG/DL 12/17/2021 6:[address] [facility] BILIRUBIN TOTAL S/P/B 0.4 0.2 - 1.2 MG/DL 12/17/2021 6:[address] [facility] Comment: THIS ASSAY IS NOT RECOMMENDED FOR PATIENTS UNDERGOING TREATMENT WITH ELTROMBOPAG DUE TO THE POTENTIAL FOR FALSELY ELEVATED RESULTS. TOTAL PROTEIN S/P/B 8.2 6.4 - 8.2 G/DL 12/17/2021 6:[address] [facility] ALBUMIN S/P/B 3.1(L) 3.4 - 5.0 G/DL 12/17/2021 6:[address] [facility] AST 14(L) 15 - 37 U/L 12/17/2021 6:[address] [facility] ALT 20 14 - 55 U/L 12/17/2021 6:[address] [facility] ALKALINE PHOSPHATASE S/P/B 126 50 - 136 U/L 12/17/2021 6:[address] [facility] ANION GAP 2.3(L) 5 - 15 MMOL/L 12/17/2021 6:47 AM [facility] BUN CREATININE RATIO 18.5 6 - 26 12/17/2021 6:47 AM [facility] A/G RATIO 0.6(L) 1.0 - 2.0 RATIO 12/17/2021 6:47 AM [facility] GFR ESTIMATE 76(L) >90 ML/MIN/1.7 3 M2 12/17/2021 6:47 AM [facility] Comment: NOTE: eGFR is not calculated for patients <18 years of age. This is an estimated GFR calculation using the new CKD EPI creatinine equation without race and so does not require a correction factor for race. This estimated GFR should not be used for calculating drug doses. 12/17/2021 6:10 AM CDT Wanda Mercer CHANGE COORDINATOR LABORATORY Final Resul t [facility] [address] [place] [address], [place] [phone] * (ABNORMAL) CBC W/DIFF AUTOMATED (12/17/2021 6:10 AM CDT) WBC 7.9 4.5 - 11.0 x10'3/uL 12/17/2021 6:[address] [facility] RBC 3.99(L) 4.20 - 5.40 x10'6/uL 12/17/2021 6:[address] [facility] HGB 12.2 12.0 - 16.0 G/DL 12/17/2021 6:[address] [facility] HCT 36.2(L) 38.0 - 48.0 % 12/17/2021 6:[address] [facility] MCV 90.7 81.0 - 99.0 FL 12/17/2021 6:[address] [facility] MCH 30.6 27.0 - 31.0 PG 12/17/2021 6:[address] [facility] MCHC 33.7 32.0 - 36.0 G/DL 12/17/2021 6:[address] [facility] RDW 12.8 11.5 - 14.5 % 12/17/2021 6:[address] [facility] PLT 292 130 - 400 x10'3/uL 12/17/2021 6:[address] [facility] MPV 10.9 9.3 - 12.2 FL 12/17/2021 6:[address] [facility] DIFFERENTIAL TYPE AUTOMATED DIFFERENTIAL 12/17/2021 6:[address] [facility] NEUTROPHILS % 54.5 % 12/17/2021 6:[address] [facility] LYMPHOCYTES % 38.5 % 12/17/2021 6:[address] [facility] MONOCYTES % 5.2 % 12/17/2021 6:[address] [facility] EOSINOPHILS 1.1 % 12/17/2021 6:[address] [facility] BASOPHILS 0.4 % 12/17/2021 6:[address] [facility] IMMATURE GRANS % 0.3 % 12/18/19 6:[address] [facility] ABS. NEUTROPHILS TOTAL 4.33 1.80 - 7.70 x10'3/uL 12/17/2021 6:[address] [facility] ABS. LYMPHOCYTES 3.06 1.00 - 4.80 x10'3/uL 12/17/2021 6:[address] [facility] ABS. MONOCYTES 0.41 0.24 - 0.86 x10'3/uL 12/17/2021 6:[address] [facility] ABS. EOSINOPHILS 0.09 0.04 - 0.36 x10'3/uL 12/17/2021 6:[address] [facility] ABS. BASOPHILS 0.03 0.01 - 0.08 x10'3/uL 12/17/2021 6:[address] [facility] ABS. IMMATURE GRANULOCYTES 0.02 0.00 - 0.49 x10'3/uL 12/17/2021 6:[address] [facility] 12/17/2021 6:10 AM CDT Wanda Mercer CHANGE COORDINATOR LABORATORY Final Resul t Performing Organization Address [facility] [[email or web address]] Co de Phone Number [facility] [address] [place] [phone], * (ABNORMAL) Bedside Blood Glucose (12/16/2021 10:21 PM CDT) GLUCOSE WHOLE BLOOD 227(A) 70 - 100 mg/dL Wanda Mercer CHANGE COORDINATOR NURSING TREATMENT ORDERABLE S - ONCE OR INTERVALS Final Result * (ABNORMAL) POCT glucose (12/16/2021 10:18 PM CDT) GLUCOSE POC 277(H) 70 - 99 mg/dL 12/16/2021 10:[address] [facility] 12/16/2021 10:1 8 PM CDT Wanda Maynard MD POCT ORDERABLES - DEVICE Fin al Result Performing Organization Address [facility] [[email or web address]] Co de Phone Number [facility] [address] [place] [phone], * XR FOOT LT 2V (12/16/2021 8:01 [...] MD, 12/16/2021 8:06 PM us Wanda Mercer CHANGE COORDINATOR GENERAL IMAGING Final Resul t * XR [...] Irving MD, 12/16/2021 8:04 PM Wanda Mercer CHANGE COORDINATOR GENERAL IMAGING Final Resul t * (ABNORMAL) MAGNESIUM (12/16/2021 7:00 PM CDT) MAGNESIUM 1.6(L) 1.8 - 2.4 MG/DL 12/16/2021 7:45 PM CDT [facility] 12/16/2021 7:00 PM CDT Wanda Maynard MD LABORATORY Final Result [facility] [address] [place] [address], [place] [phone] * (ABNORMAL) Bedside Blood Glucose (12/16/2021 6:50 PM CDT) GLUCOSE WHOLE BLOOD 179(A) 70 - 100 mg/dL Wanda Mercer CHANGE COORDINATOR NURSING TREATMENT ORDERABLE S - ONCE OR INTERVALS Final Result * (ABNORMAL) POCT glucose (12/16/2021 6:49 PM CDT) GLUCOSE POC 179(H) 70 - 99 mg/dL 12/16/2021 7:[address] [facility] 12/16/2021 6:49 PM CDT Wanda Maynard MD POCT ORDERABLES - DEVICE Fin al Result Performing Organization Address [facility] [[email or web address]] Co de Phone Number [facility] [address] [place] [address], [place] [phone] * PARTIAL THROMBOPLASTIN TIME,PTT (12/16/2021 6:34 PM CDT) PTT 26.5 25.1 - 36.5 SEC 12/16/2021 7:[address] [facility] 12/16/2021 6:34 PM CDT Desiree Mackenzie MD LABORATORY Final Re sult [facility] [address] [place] [address], [place] [phone] * PROTIME/INR, VENOUS (12/16/2021 6:34 PM CDT) PROTIME 11.9 10.2 - 12.9 SEC 12/16/2021 7:[address] [facility] INR 1.0 12/16/2021 7:[address] [facility] Comment: Recommended INR Therapeutic Goals: ??2.0-3.0 Routine Therapy ??2.5-3.5 Mechanical Prosthetic Valves (High Risk) 12/16/2021 6:34 PM CDT Desiree Mackenzie MD LABORATORY Final Re sult [facility] [address] [place] [address], [place] [phone] * Thrombin Time (12/16/2021 6:33 PM CDT) THROMBIN TIME 19 13 - 19 sec 12/21/2021 3:48 AM CDT [employer] [facility] Comment: Test Performed by [employer], [employer], [address] [place], [place] Mehrdad You M.D., Ph.D., Director of Laboratories , CLIA [id number] 12/16/2021 6:33 PM CDT Wanda Maynard MD LABORATORY Final Result Performing Organization Address City/[facility]/ZIP Co de Phone Number [employer] [address] [place] [address], [place] [phone] * ANTITHROMBIN III ACTIVITY (12/16/2021 6:33 PM CDT) ANTITHROMBIN III ACTIVITY 132 80 - 135 % normal 12/21/2021 3:48 AM CDT [employer] [facility] Comment: Test Performed by [employer], [employer], [address] [place], [place] Mehrdad You M.D., Ph.D., Director of Laboratories , CLIA [id number] 12/16/2021 6:33 PM CDT Wanda Maynard MD LABORATORY Final Result [employer] [facility] [address] [place], [place] , [place] [phone] * CULTURE, BACTERIA, BLOOD (12/16/2021 6:15 PM CDT) SPEC DESCRIPTION BLOOD 12/16/2021 5:[address] [facility] SPECIAL REQUESTS NO SPECIAL REQUEST 12/16/2021 5:[address] [facility] CULTURE RESULT NO GROWTH 5 DAYS 12/21/2021 11:[address] [facility] BLOOD SPECIMEN OBTAINED FOR BLOOD CULTURE / Unknown 12/16/2021 6:15 PM CDT 12/16/2021 7:09 PM CDT Wanda Mercer APRN MICROBIOLOGY - GENERAL ORDE RABLES Final Result [facility] [address] [place] [address], [place] [phone] * CULTURE, BACTERIA, BLOOD (12/16/2021 6:15 PM CDT) SPEC DESCRIPTION BLOOD 12/16/2021 5:[address] [facility] SPECIAL REQUESTS NO SPECIAL REQUEST 12/16/2021 5:[address] [facility] CULTURE RESULT NO GROWTH 5 DAYS 12/21/2021 11:[address] [facility] BLOOD SPECIMEN OBTAINED FOR BLOOD CULTURE / Unknown 12/16/2021 6:15 PM CDT 12/16/2021 7:09 PM CDT Wanda Mercer APRN MICROBIOLOGY - GENERAL ORDE RABLES Final Result [facility] [address] [place] [address], * ECG 12 lead (12/16/2021 3:41 PM CDT) 12/16/2021 3:41 PM CDT Narrative [facility] ([facility] - 12/16/2021 9:05 PM CDT ?[facility] ? [address] [facility] [place] ? Test Date: ?2021-12-16 Pat Name: ? TYSON MCNEAL ?Department: ?? 41 ? Room: ? 4 Gender: ? Female ? 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 : ?[id number] ? Requested By: DESIREE MACKENZIE Order Number: [id number] ? Reading : ?? Carroll Varela ? Measurements Intervals ?[place] ? Rate: ? 89 ? P: ?34 MD: ? 160 ?QRS: ?15 QRSD: ? 87 ? T: ?102 QT: ? 364 ? QTc: ?445 ? 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[id number] Requested By: DESIREE MACKENZIE Order Number: [id number] Reading MD: Carroll Varela Measurements Intervals [place] Rate: 89 P: 34 MD: 160 QRS: 15 QRSD: 87 T: 102 QT: 364 QTc: 445 Interpretive Statements SINUS RHYTHM MINIMAL VOLTAGE CRITERIA FOR LVH, CONSIDER NORMAL VARIANT [MEETS CRITERIAIN ONE OF: R(aVL), S(V1), R(V5), R(V5/V6)+S(V1)] NONSPECIFIC T-WAVE ABNORMALITY Compared to ECG 07/10/2021 14:18:26 Ventricular premature complex(es) no longer present T-wave abnormality still present us Desiree Mackenzie MD ECG ORDERABLES Final Re sult [facility] ([facility] * USV ART REST W ADRIANA LOW EXT (12/16/2021 3:11 PM CDT) Anatomical Region Laterality Modality Extremity Vascular Ultraso und 12/16/2021 2:52 PM CDT Narrative 12/17/2021 10:33 PM CDT ?ARTERIAL DOPPLER - ADRIANA ?BILATERAL LOWER EXTREMITY ? VASCULAR LAB Pat.Name: ??TYSON MCNEAL ?Pat.ID: ?[id number] ? St.Date: ?? 12/16/2021 ?Refer.: ??Yasmin Segura [...] waveforms, Digit PPG, Systolic Pressures w/ADRIANA Race: ?-[place]er ? ++++++++++++++++++++++++++++++++++++ SUMMARY: ++++++++++++++++++++++++++++++++++++ Joceline ADRIANA Criteria: [...] FINDINGS: ++++++++++++++++++++++++++++++++++++ ++++++++++++++++++++++++++++++++++++ MEASUREMENTS: ++++++++++++++++++++++++++++++++++++ ?DOPPLER Left PIECE DYEING MACHINE TENDER ?? PIECE DYEING MACHINE TENDER PSV ?123 cm/s ? Left Dist Pop A ?? Dist Pop A PSV ??94.2 cm/s ? Left Dist PANTOGRAPH TRANSFERRER ?? Dist PANTOGRAPH TRANSFERRER PSV ?46.2 cm/s ? Left Dist DOMINGA ?? Dist DOMINGA PSV ?56.5 cm/s ? Right PIECE DYEING MACHINE TENDER ?? PIECE DYEING MACHINE TENDER PSV ?145 cm/s ? Right Dist Pop A ?? Dist Pop A PSV ?? 107 cm/s ? Right Dist PANTOGRAPH TRANSFERRER ?? Dist PANTOGRAPH TRANSFERRER PSV ?56.5 cm/s ? Right Dist DOMINGA [...] EXTREMITY VASCULAR LAB Pat.Name: TYSON MCNEAL Pat.ID: [id number] .Date: 12/16/2021 Refer.MD: Yasmin Segura Exam Time: [...] waveforms, Digit PPG, Systolic Pressures w/ADRIANA Race: -[place] Islander ++++++++++++++++++++++++++++++++++++ SUMMARY: ++++++++++++++++++++++++++++++++++++ Joceline ADRIANA Criteria: >1.30 [...] FINDINGS: ++++++++++++++++++++++++++++++++++++ ++++++++++++++++++++++++++++++++++++ MEASUREMENTS: ++++++++++++++++++++++++++++++++++++ DOPPLER Left PIECE DYEING MACHINE TENDER PIECE DYEING MACHINE TENDER PSV 123 cm/s Left Dist Pop A Dist Pop A PSV 94.2 cm/s Left Dist PANTOGRAPH TRANSFERRER Dist PANTOGRAPH TRANSFERRER PSV 46.2 cm/s Left Dist DOMINGA Dist DOMINGA PSV 56.5 cm/s Right PIECE DYEING MACHINE TENDER PIECE DYEING MACHINE TENDER PSV 145 cm/s Right Dist Pop A Dist Pop A PSV 107 cm/s Right Dist PANTOGRAPH TRANSFERRER Dist PANTOGRAPH TRANSFERRER PSV 56.5 cm/s Right Dist DOMINGA Dist [...] PM Hubert Hernandez M.D. Desiree Mackenzie MD [facility] Final Re sult * XR MULTI TOE [...] ulcers to right first and second toes [id number] with diabetic ulcers of the right foot [...] 7 <54 ng/L 12/16/2021 8:31 PM CDT [facility] Comment: HIGH DOSES OF BIOTIN, TROPONIN-SPECIFIC AUTOANTIBODIES, AND ANTIBODY THERAPY CONTAINING HAMA MAY INTERFERE WITH THIS TEST RESULT. CORRELATION TO CLINICAL HISTORY AND PRESENTATION RECOMMENDED. 12/16/2021 2:25 PM CDT Wanda Mercer APRN LABORATORY Final Resul t Performing Organization Address City/[facility]/ZIP Co de Phone Number [facility] [address] [place] [address], [place] [phone] * (ABNORMAL) SED RATE, ERYTHROCYTE (ESR) (12/16/2021 2:25 PM CDT) ESR 70(H) <20 MM/HR 12/16/2021 6:[address] [facility] Comment:Testing performed on [employer] iSED. 12/16/2021 2:25 PM CDT Desiree Mackenzie MD LABORATORY Final Re sult Performing Organization Address City/[facility]/ZIP Co de Phone Number [facility] [address] [place] [address], [place] [phone] * CK (CPK) (12/16/2021 2:20 PM CDT) CPK 185 21 - 215 U/L 12/16/2021 6:[address] [facility] 12/16/2021 2:20 PM CDT us Wanda Mercer APRN LABORATORY Final Resul t Performing Organization Address City/[facility]/ZIP Co de Phone Number [facility] [address] [place] [address], [place] [phone] * PHOSPHORUS, INORGANIC PHOSPHATE (12/16/2021 2:20 PM CDT) PHOSPHORUS 4.0 2.5 - 4.9 MG/DL 12/16/2021 6:[address] [facility] 12/16/2021 2:20 PM CDT Wanda Trujillo Kian CHANGE COORDINATOR LABORATORY Final Resul t [facility] [address] [place] [address], [place] [phone] * (ABNORMAL) MAGNESIUM (12/16/2021 2:20 PM CDT) MAGNESIUM <0.3(LL) 1.8 - 2.4 MG/DL 12/16/2021 6:[address] [facility] Comment:ZL CALLED CRITICAL R ESULTS AT 16Dec2021 TO AND READ BACK BY CARLOS MERCEDES 12/16/2021 2:20 PM CDT Wanda Ronnie Kian JAIME LABORATORY Final Resul t Performing Organization Address City/[facility]/ZIP Co de Phone Number [facility] [address] [place] [address], * (ABNORMAL) C-REACTIVE PROTEIN (12/16/2021 2:20 PM CDT) C-REACTIVE PROTEIN 3.03(H) <0.29 mg/dL 12/16/2021 6:[address] [facility] 12/16/2021 2:20 PM CDT Desiree Mackenzie MD LABORATORY Final Re sult [facility] [address] [place] [address], [place] [phone] * (ABNORMAL) COMPREHENSIVE METABOLIC PANEL (12/16/2021 2:20 PM CDT) [facility] GLUCOSE 141(H) 70 - 99 MG/DL 12/16/2021 2:[address] [facility] BUN 15 7 - 18 MG/DL 12/16/2021 2:[address] [facility] CREATININE S/P/B 1.00 0.55 - 1.02 MG/DL 12/16/2021 2:[address] [facility] SODIUM S/P/B 137 136 - 145 MMOL/L 12/16/2021 2:[address] [facility] POTASSIUM S/P/B 3.3(L) 3.5 - 5.1 MMOL/L 12/16/2021 2:[address] [facility] CHLORIDE S/P/B 104 100 - 108 MMOL/L 12/16/2021 2:[address] [facility] CO2 28.5 21 - 32 MMOL/L 12/16/2021 2:[address] [facility] CALCIUM S/P/B 9.8 8.5 - 10.1 MG/DL 12/16/2021 2:[address] [facility] BILIRUBIN TOTAL S/P/B 0.4 0.2 - 1.2 MG/DL 12/16/2021 2:[address] [facility] Comment: THIS ASSAY IS NOT RECOMMENDED FOR PATIENTS UNDERGOING TREATMENT WITH ELTROMBOPAG DUE TO THE POTENTIAL FOR FALSELY ELEVATED RESULTS. TOTAL PROTEIN S/P/B 9.8(H) 6.4 - 8.2 G/DL 12/16/2021 2:[address] [facility] ALBUMIN S/P/B 3.6 3.4 - 5.0 G/DL 12/16/2021 2:[address] [facility] AST 17 15 - 37 U/L 12/16/2021 2:[address] [facility] ALT 23 14 - 55 U/L 12/16/2021 2:[address] [facility] ALKALINE PHOSPHATASE S/P/B 146(H) 50 - 136 U/L 12/16/2021 2:[address] [facility] ANION GAP 4.5(L) 5 - 15 MMOL/L 12/16/2021 2:[address] [facility] BUN CREATININE RATIO 15.0 6 - 26 12/16/2021 2:[address] [facility] A/G RATIO 0.6(L) 1.0 - 2.0 RATIO 12/16/2021 2:[address] [facility] GFR ESTIMATE 69(L) >90 ML/MIN/1.7 3 M2 12/16/2021 2:[address] [facility] [...] Desiree Mackenzie MD LABORATORY Final Re sult [facility] [address] [place] [address], [place] [phone] * (ABNORMAL) CBC W/DIFF AUTOMATED (12/16/2021 2:20 PM CDT) WBC 12.1(H) 4.5 - 11.0 x10'3/uL 12/16/2021 2:[address] [facility] RBC 4.37 4.20 - 5.40 x10'6/uL 12/16/2021 2:[address] [facility] HGB 13.3 12.0 - 16.0 G/DL 12/16/2021 2:[address] [facility] HCT 39.7 38.0 - 48.0 % 12/16/2021 2:[address] [facility] MCV 90.8 81.0 - 99.0 FL 12/16/2021 2:[address] [facility] MCH 30.4 27.0 - 31.0 PG 12/16/2021 2:[address] [facility] MCHC 33.5 32.0 - 36.0 G/DL 12/16/2021 2:[address] [facility] RDW 12.8 11.5 - 14.5 % 12/16/2021 2:[address] [facility] PLT 326 130 - 400 x10'3/uL 12/16/2021 2:[address] [facility] MPV 10.9 9.3 - 12.2 FL 12/16/2021 2:[address] [facility] DIFFERENTIAL TYPE AUTOMATED DIFFERENTIAL 12/16/2021 2:[address] [facility] NEUTROPHILS % 65.6 % 12/16/2021 2:[address] [facility] LYMPHOCYTES % 29.9 % 12/16/2021 2:[address] [facility] MONOCYTES % 3.1 % 12/16/2021 2:[address] [facility] EOSINOPHILS 0.7 % 12/16/2021 2:[address] [facility] BASOPHILS 0.4 % 12/16/2021 2:[address] [facility] IMMATURE GRANS % 0.3 % 12/17/19 2:[address] [facility] ABS. NEUTROPHILS TOTAL 7.90(H) 1.80 - 7.70 x10'3/uL 12/16/2021 2:[address] [facility] ABS. LYMPHOCYTES 3.61 1.00 - 4.80 x10'3/uL 12/16/2021 2:[address] [facility] ABS. MONOCYTES 0.37 0.24 - 0.86 x10'3/uL 12/16/2021 2:[address] [facility] ABS. EOSINOPHILS 0.09 0.04 - 0.36 x10'3/uL 12/16/2021 2:[address] [facility] ABS. BASOPHILS 0.05 0.01 - 0.08 x10'3/uL 12/16/2021 2:[address] [facility] ABS. IMMATURE GRANULOCYTES 0.04 0.00 - 0.49 x10'3/uL 12/16/2021 2:[address] [facility] 12/16/2021 2:20 PM CDT Desiree Mackenzie MD LABORATORY Final Re sult [facility] [address] [place] [address], * PROCALCITONIN (PCT) (12/16/2021 2:07 PM CDT) Procalcitonin <0.05 <0.5 NG/ML 12/16/2021 3:[address] [facility] 12/16/2021 2:07 PM CDT Desiree Mackenzie MD LABORATORY Final Re sult [facility] [address] [place] [address], [place] [phone] documented in this encounter Visit Diagnoses Diagnosis Diabetic foot infection ([facility])- Primary Type II or unspecified type diabetes mellitus with other specified manifestations, not stated as uncontrolled Hypokalemia Hypopotassemia Diabetic foot ulcer ([facility]) Type II or unspecified type diabetes mellitus with other specified manifestations, not stated as uncontrolled Diabetic foot infection ([facility]) Type II or unspecified type diabetes mellitus with other specified manifestations, not stated as uncontrolled documented in this encounter Admitting Diagnoses Diagnosis Diabetic foot infection ([facility]) Type II or unspecified type diabetes [...] 1200, Until Discontinued Given 12/26/2021 8:11 AM FIELD CANE SCALE CLERK 1 capsule Given 12/25/2021 8:57 PM FIELD CANE SCALE CLERK 1 capsule Given 12/25/2021 1:29 PM FIELD CANE SCALE CLERK 1 capsule amLODIPine (NORVASC) tablet 10 mg 10 mg, Oral, Nightly, First dose on Sun12/16/21 at 2100, Until Discontinued, Hold for SBP<110 Given 12/25/2021 8:57 PM FIELD CANE SCALE CLERK 10 mg Given 12/24/2021 8:01 PM CDT 10 mg Given 12/23/2021 8:00 PM CDT 10 mg atorvastatin (LIPITOR) tablet 20 mg 20 mg, Oral, Daily, First dose on Sun12/16/21 at 1815, Until Discontinued Given 12/26/2021 8:11 AM FIELD CANE SCALE CLERK 20 mg Given 12/25/2021 9:18 AM FIELD CANE SCALE CLERK 20 mg Given 12/24/2021 9:19 AM CDT [...] per protocol New Bag 12/26/2021 11:39 AM FIELD CANE SCALE CLERK 2 g 200 mL/hr New Bag 12/26/2021 2:52 AM FIELD CANE SCALE CLERK 2 g 200 mL/hr New Bag 12/25/2021 9:00 PM FIELD CANE SCALE CLERK 2 g 200 mL/hr cefTRIAXone (ROCEPHIN) 1 g in sodium chloride 0.9 % 50 mL IVPB 1 g, Intravenous, at 100 mL/hr, Once, 1 dose, On Sun12/16/21 at 1745 [facility] 12/16/2021 6:36 PM CDT 1 [...] 1315, Until Discontinued Given 12/26/2021 8:11 AM FIELD CANE SCALE CLERK 10 mg Given 12/25/2021 9:18 AM FIELD CANE SCALE CLERK 10 mg Given 12/24/2021 1:40 PM CDT [...] Until Discontinued New Bag 12/26/2021 11:39 AM FIELD CANE SCALE CLERK 450 mg 200 mL/hr New Bag 12/25/2021 2:08 PM FIELD CANE SCALE CLERK 450 mg 200 mL/hr New Bag 12/24/2021 [...] 2100, Until Discontinued Given 12/26/2021 8:11 AM FIELD CANE SCALE CLERK 100 mg Given 12/25/2021 9:19 AM FIELD CANE SCALE CLERK 100 mg Given 12/24/2021 8:30 PM CDT 100 mg fluticasone propionate (FLONASE) 50 MCG/ACT nasal spray 1 spray 1 spray, Each Nostril, Daily, First dose on 12/24/21 at 1315, Until Discontinued Given 12/26/2021 8:10 AM FIELD CANE SCALE CLERK 1 sp ray Given 12/25/2021 6:37 AM FIELD CANE SCALE CLERK 1 spray Given 12/24/2021 2:16 PM CDT [...] 2100, Until Discontinued Given 12/26/2021 8:10 AM FIELD CANE SCALE CLERK 5,000 Units Left Lower Abdomen Given 12/25/2021 8:57 PM FIELD CANE SCALE CLERK 5,000 Units L eft Lower Abdomen Given 12/25/2021 9:18 AM FIELD CANE SCALE CLERK 5,000 Units R ight Lower Abdomen heparin lock flush 10 UNIT/ML injection 3 mL 3 mL, Intracatheter, Every 24 hours, First dose on Viky 12/22/21 at 2015, Until Discontinued Given 12/25/2021 8:56 PM FIELD CANE SCALE CLERK 3 mLs Given 12/24/2021 8:03 PM CDT 3 mLs Given 12/23/2021 8:12 PM CDT 3 mLs heparin lock flush 10 UNIT/ML injection 3 mL 3 mL, Intracatheter, As needed, Line care, Starting on Viky 12/22/21 at 1951, Until 12/26/21 at 1812, After each use Given 12/25/2021 4:16 AM FIELD CANE SCALE CLERK 3 mLs hydroCHLOROthiazide (HYDRODIURIL) tablet 25 mg [...] in 24 hours. Given 12/25/2021 10:41 PM FIELD CANE SCALE CLERK 1 tab let Given 12/25/2021 12:13 AM CDT 1 tablet Given 12/24/2021 6:09 PM CDT 1 tablet hydrOXYzine (VISTARIL) capsule 25 mg 25 mg, Oral, Nightly at bedtime, First dose on Sun12/16/21 at 2100, Until Discontinued Given 12/25/2021 8:57 PM FIELD CANE SCALE CLERK 25 mg Given 12/24/2021 8:01 PM CDT [...] 1700, Until Discontinued Given 12/25/2021 5:43 PM FIELD CANE SCALE CLERK 55 Units Left Arm Given 12/24/2021 6:09 [...] 0830, Until Discontinued Given 12/26/2021 8:10 AM FIELD CANE SCALE CLERK 65 Units Right Arm Given 12/25/2021 9:18 AM FIELD CANE SCALE CLERK 65 Units Le ft Arm Given 12/24/2021 [...] and Call Physician] Given 12/26/2021 1:25 PM FIELD CANE SCALE CLERK 2 Units Right Lower Abdomen Given 12/25/2021 5:44 PM FIELD CANE SCALE CLERK 10 Units Le ft Arm Given 12/25/2021 1:29 PM FIELD CANE SCALE CLERK 4 Units Ri ght Arm insulin lispro [...] and Call Physician] Given 12/25/2021 8:56 PM FIELD CANE SCALE CLERK 2 Units Left Lower Abdomen Given 12/24/2021 [...] medication stored in patient specific bin in [employer]. Please send home with patient upon discharge from hospital. Given 12/26/2021 6:24 AM FIELD CANE SCALE CLERK 145 mcg Given 12/25/2021 6:35 AM FIELD CANE SCALE CLERK 145 mcg Given 12/23/2021 6:23 AM CDT [...] 12/25/21 at 2200 Given 12/25/2021 8:57 PM FIELD CANE SCALE CLERK 500 mg Given 12/25/2021 5:45 PM FIELD CANE SCALE CLERK 500 mg Given 12/25/2021 6:35 AM FIELD CANE SCALE CLERK 500 mg morphine injection 1 mg 1 [...] not in use Given 12/25/2021 9:00 PM FIELD CANE SCALE CLERK 5 mLs Given 12/24/2021 8:30 PM CDT 5 mLs Given 12/23/2021 8:15 PM CDT 10 mLs ondansetron (ZOFRAN) injection 4 mg 4 mg, Intravenous, Every 8 hours PRN, Nausea, Starting on e 12/20/21 at 2019, Until 12/25/21 at 2014, IV push over 2-5 minutes. Given 12/25/2021 10:30 AM FIELD CANE SCALE CLERK 4 mg Given 12/22/2021 7:24 AM CDT [...] chew, or crush. Given 12/26/2021 8:11 AM FIELD CANE SCALE CLERK 40 mg Given 12/25/2021 9:18 AM FIELD CANE SCALE CLERK 40 mg Given 12/24/2021 9:20 AM CDT [...] may contain times in both CDT and FIELD CANE SCALE CLERK. Scheduled Medication Order 12/24/2021 12/25/2021 12/26/2021 acidophilus [...] 1315, Until Discontinued 1416 (Given - Provider: Kortney Elias RN) 0637 [...] medication stored in patient specific bin in [employer]. Please send home with patient upon discharge [...] Depression Total Score: 0 03/08/19 9:30 AM FIELD CANE SCALE CLERK documented as of this encounter Care Teams Redrawer Relationship Specialty Start Date End Date Yasmin Segura II, MD [address] [place] [address] PCP - General FAMILY PRACTICE 03/09/21 documented as of this encounter
--- OUTSIDE RECORDS SUMMARY | 2024-03-03 01:26 | XMS_ITS | Encounter Summary ---
Author Organization [facility] Address [address] [place] [address]. [place] [address] [place] [address] Care Team Providers Care Director Of Campus Recreation Name Role Phone Colton SILVEIRA MD, Abiodun Rushing Primary Care Provider Encounter Details Date Type Department Care Team (Latest Contact Info) Description 11/28/2021 11:32 AM CDT - 11/28/2021 11:59 PM CDT Hospital Encounter [facility] [address] [place], [place] [id number] [place] [address] [place] [address] Discharge Disposition: Home or Self [...] with long-term current use of insulin ([facility]) Inject 3 mg into the skin weekly. 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] with long-term current use of insulin ([facility]) USE 1 SYRINGE SUBCUTANEOUSLY TWICE DAILY 100 each 5 1 01/02/20 22 simvastatin (ZOCOR) 40 MG tabletIndications:H ypercholesteremia [The details of the medication are not available because there are pending changes by a home health clinician.] 90 tablet 3 2 06/15/19 24 SITagliptin 100 MG tabletIndications:T ype 2 diabetes mellitus with diabetic neuropathic arthropathy, with long-term current use of insulin ([facility]) Take 1 tablet (100 mg total) by mouth daily. 90 tablet 3 2 12/27/19 22 triamcinolone (KENALOG) 0.1 % cream APPLY CREAM TOPICALLY TO BODY TWICE DAILY FOR 2 WEEKS THEN NEEDED (CAN THIN THE SKIN) 2 12/17/19 22 documented as of this encounter Plan of Treatment Upcoming Encounters Date Type Department Care Team (Late st Contact Info) Description 03/14/2024 11:45 AM APPRENTICE COOK Office Visit [facility]-[address] [phone] Marvin Mckeon MD [facility] [address] [place], [place] [phone] 03/20/2024 11:30 AM APPRENTICE COOK Office Visit [facility] - [address] [phone] Abiodun Segura II, MD [address] [place] [address] [phone] documented as of this encounter Procedures Procedure [...] Depression Total Score: 0 03/08/19 9:30 AM APPRENTICE COOK documented as of this encounter Care Teams Director Of Campus Recreation Relationship Specialty Start Date End Date Abiodun Segura II, MD [address] [place] [id number] PCP - General FAMILY PRACTICE 03/09/21 documented as of this encounter
--- OUTSIDE RECORDS SUMMARY | 2024-03-03 01:26 | XMS_ITS | Encounter Summary ---
Author Organization [facility] Address [address] [place] [address]. [place] [address] [place] [address] Care Team Providers Care Clinical Education Assistant Name Role Phone Colton SILVEIRA MD, Yasmin Rushing Primary Care Provider Reason for Referral * Imaging (Emergency) - Closed Specialty Diagnoses / Procedures Referred By Lyla chaney Referred To Contact RADIOLOGY Procedures CT ABD+PEL W IV CON ONLY Al Dia PA [address] [place] [address] Phone: tel: fax: Referral ID Status Reason Start Date Expiration Date Visits Re quested Visits Authorized [id number] Closed 10/29/2021 10/29/2022 1 1 Reason for Visit * Reason Comments Back Pain Urinary Symptoms Encounter Details Date Type Department Care Team (Late st Contact Info) Description 10/29/2021 11:08 AM CDT - 10/29/2021 4:42 PM CDT Emergency [facility] [address] [place], [place] [id number] Lex Mancilla PA [address] [place], [place] [id number] Back Pain; Urinary Symptoms Discharge Disposition: Home [...] Everywhere. * Urinary Tract Infection, Adult ED ([place]) documented in this encounter Medications at Time [...] with long-term current use of insulin ([facility]) Inject 3 mg into the skin weekly. 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, with long-term current use of insulin ([facility]) USE 1 STRIP TO CHECK GLUCOSE TWICE DAILY 200 strip 3 2 01/02/20 22 HUMALOG MIX 75/25 (75-25) 100 UNIT/ML SuspensionIndicatio ns:Type 2 diabetes mellitus with retinopathy, with long-term current use of insulin, macular edema presence unspecified, unspecified laterality, unspecified retinopathy severity ([facility]) Inject 60 units ;subcutaneously in the [...] with long-term current use of insulin ([facility]) USE 1 SYRINGE SUBCUTANEOUSLY [...] with long-term current use of insulin ([facility]) Take 1 tablet (100 mg total) by [...] CYNTHIA Garsia - 10/29/2021 2:39 PM CDT [place], [place] EMERGENCY DEPARTMENT ENCOUNTER HISTORICAL INFORMATION Primary [...] COLOR (U) DARK YELLOW TRANSPARENCY TURBID Specific [place] (U) 1.006 1.001 - 1.030 U PH [...] IV CON ONLY Final Result by User, [id number] (10/29 132) EXAMINATION: CT ABDOMEN AND PELVIS [...] and validated. 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 to the exit designer writer discharge instructions for details surrounding the discharge plan. I did reiterate with the patient that if an urgent need for immediate follow up comes up, not to hesitate to return to the ED. CYNTHIA Garsia PA 10/29/21 1442 Cosigned by Hubert Guzman MD at 10/29/2021 5:27 PM CDT * CYNTHIA Saravia - 10/29/2021 11:06 AM CDT [place], [place] EMERGENCY DEPARTMENT ENCOUNTER Medical Screening Examination [...] st Contact Info) Description 03/14/2024 11:45 AM [facility] Office Visit [facility] [id number] Marvin Mckeon MD [facility] [place], [place] [id number] 03/20/2024 11:30 AM [facility] Office Visit [facility] - [place] [address] [place] [id number] Yasmin Segura II, MD [address] [place], [place] [id number] documented as of this encounter Procedures Procedure [...] demonstrates no acute abnormality. ===== Procedure Note Isíaas Jones MD - 10/29/2021 EXAMINATION: CT ABDOMEN [...] URINE CLEAN CATCH 10/29/2021 12:11 PM CDT [facility] SPECIAL REQUESTS NO SPECIAL REQUEST 10/29/2021 12:11 PM CDT [facility] CULTURE RESULT NO GROWTH 2 DAYS 10/31/2021 7:38 AM CDT [facility] URINE SPECIMEN OBTAINED BY CLEAN CATCH PROCEDURE / Unknown 10/29/2021 11:49 AM CDT 10/29/2021 12:11 PM CDT us Lex MARIE MICROBIOLOGY - GENERAL ORD ERABLES Final Result [facility] [address] [place] [address], * (ABNORMAL) URINALYSIS (10/29/2021 11:49 AM CDT) SPECIMEN TYPE URINE CLEAN CATCH 10/29/2021 11:45 AM CDT [facility] COLOR (U) DARK YELLOW 10/29/2021 12:11 PM CDT [facility] TRANSPARENCY TURBID 10/29/2021 12:11 PM CDT [facility] SPECIFIC GRAVITY (U) 1.006 1.001 - 1.030 10/29/2021 12:11 PM CDT [facility] U PH 5.5 5.0 - 9.0 10/29/2021 12:11 PM CDT [facility] LEUKOCYTES (U) 500(A) NEGATIVE 10/29/2021 12:11 PM CDT [facility] NITRITES 1+(A) NEGATIVE 10/29/2021 12:11 PM CDT [facility] PROTEIN (U) 50(H) <30 MG/DL 10/29/2021 12:11 PM CDT [facility] URINE GLUCOSE NORMAL NORMAL MG/DL 10/29/2021 12:11 PM CDT [facility] KETONES MG/DL (U) NEGATIVE NEGATIVE MG/DL 10/29/2021 12:11 PM CDT [facility] UROBILINOGEN NORMAL NORMAL MG/DL 10/29/2021 12:11 PM CDT [facility] BILIRUBIN (U) NEGATIVE NEGATIVE MG/DL 10/29/2021 12:11 PM CDT [facility] BLOOD (U) 3+(A) NEGATIVE 10/29/2021 12:11 PM CDT [facility] CULTURE & SENSITIVITY INDICATED? SPECIMEN SETUP FOR CULTURE 10/29/2021 12:11 PM CDT [facility] RENAL EPI FEW /HPF 10/29/2021 12:11 PM CDT [facility] MUCUS RARE /LPF 10/29/2021 12:11 PM CDT [facility] WBC/HPF >100(H) <6 /HPF 10/29/2021 12:11 PM CDT [facility] RBC/HPF >100(H) <6 /HPF 10/29/2021 12:11 PM CDT [facility] BUDDING YEAST FEW(A) NONE /HPF 10/29/2021 12:11 PM CDT [facility] SQUAMOUS EPITHELIALS RARE /HPF 10/29/2021 12:11 PM CDT [facility] URINE SPECIMEN OBTAINED BY CLEAN CATCH PROCEDURE / Unknown 10/29/2021 11:49 AM CDT us Al MARIE URINE ORDERABLES Final Result [facility] [address] [place] [address], [place] [phone] * LIPASE (10/29/2021 11:49 AM CDT) LIPASE 147 73 - 393 UNITS/L 10/29/2021 12:19 PM CDT [facility] 10/29/2021 11:4 9 AM CDT Al MARIE LABORATORY Final Result [facility] [address] [place] [address], [place] [phone] * (ABNORMAL) COMPREHENSIVE METABOLIC PANEL (10/29/2021 11:49 AM CDT) GLUCOSE 121(H) 70 - 99 MG/DL 10/29/2021 12:19 PM CDT [facility] BUN 15 7 - 18 MG/DL 10/29/2021 12:19 PM CDT [facility] CREATININE S/P/B 0.97 0.55 - 1.02 MG/DL 10/29/2021 12:19 PM CDT [facility] SODIUM S/P/B 139 136 - 145 MMOL/L 10/29/2021 12:19 PM CDT [facility] POTASSIUM S/P/B 4.0 3.5 - 5.1 MMOL/L 10/29/2021 12:19 PM CDT [facility] CHLORIDE S/P/B 110(H) 100 - 108 MMOL/L 10/29/2021 12:19 PM CDT [facility] CO2 26.9 21 - 32 MMOL/L 10/29/2021 12:19 PM CDT [facility] CALCIUM S/P/B 9.5 8.5 - 10.1 MG/DL 10/29/2021 12:19 PM CDT [facility] BILIRUBIN TOTAL S/P/B 0.3 0.2 - 1.2 MG/DL 10/29/2021 12:19 PM [facility] Comment: THIS ASSAY IS NOT RECOMMENDED FOR PATIENTS UNDERGOING TREATMENT WITH ELTROMBOPAG DUE TO THE POTENTIAL FOR FALSELY ELEVATED RESULTS. TOTAL PROTEIN S/P/B 9.0(H) 6.4 - 8.2 G/DL 10/29/2021 12:19 PM T [facility] ALBUMIN S/P/B 3.4 3.4 - 5.0 G/DL 10/29/2021 12:19 PM T [facility] AST 16 15 - 37 U/L 10/29/2021 12:19 PM [facility] ALT 23 14 - 55 U/L 10/29/2021 12:19 PM [facility] ALKALINE PHOSPHATASE S/P/B 131 50 - 136 U/L 10/29/2021 12:19 PM [facility] ANION GAP 2.1(L) 5 - 15 MMOL/L 10/29/2021 12:19 PM [facility] BUN CREATININE RATIO 15.5 6 - 26 10/29/2021 12:19 PM [facility] A/G RATIO 0.6(L) 1.0 - 2.0 RATIO 10/29/2021 12:19 PM [facility] GFR ESTIMATE 71(L) >90 ML/MIN/1.7 3 M2 10/29/2021 12:19 PM [facility] Comment: NOTE: eGFR is not calculated for patients <18 years of age. This is an estimated GFR calculation using the new CKD EPI creatinine equation without race and so does not require a correction factor for race. This estimated GFR should not be used for calculating drug doses. 10/29/2021 11:4 9 AM CDT us Al MARIE LABORATORY Final Result [facility] [address] [place] [address], * (ABNORMAL) CBC W/DIFF AUTOMATED (10/29/2021 11:49 AM CDT) WBC 9.0 4.5 - 11.0 x10'3/uL 10/29/2021 12:03 PM CDT [facility] RBC 4.16(L) 4.20 - 5.40 x10'6/uL 10/29/2021 12:03 PM CDT [facility] HGB 12.7 12.0 - 16.0 G/DL 10/29/2021 12:03 PM CDT [facility] HCT 38.0 38.0 - 48.0 % 10/29/2021 12:03 PM CDT [facility] MCV 91.3 81.0 - 99.0 FL 10/29/2021 12:03 PM CDT [facility] MCH 30.5 27.0 - 31.0 PG 10/29/2021 12:03 PM CDT [facility] MCHC 33.4 32.0 - 36.0 G/DL 10/29/2021 12:03 PM CDT [facility] RDW 13.2 11.5 - 14.5 % 10/29/2021 12:03 PM CDT [facility] PLT 260 130 - 400 x10'3/uL 10/29/2021 12:03 PM CDT [facility] MPV 11.8 9.3 - 12.2 FL 10/29/2021 12:03 PM CDT [facility] DIFFERENTIAL TYPE AUTOMATED DIFFERENTIAL 10/29/2021 12:03 PM CDT [facility] NEUTROPHILS % 61.6 % 10/29/2021 12:03 PM CDT [facility] LYMPHOCYTES % 32.1 % 10/29/2021 12:03 PM CDT [facility] MONOCYTES % 4.5 % 10/29/2021 12:03 PM CDT [facility] EOSINOPHILS 0.8 % 10/29/2021 12:03 PM CDT [facility] BASOPHILS 0.7 % 10/29/2021 12:03 PM CDT [facility] IMMATURE GRANS % 0.3 % 10/30/19 12:03 PM CDT [facility] ABS. NEUTROPHILS TOTAL 5.54 1.80 - 7.70 x10'3/uL 10/29/2021 12:03 PM CDT [facility] ABS. LYMPHOCYTES 2.88 1.00 - 4.80 x10'3/uL 10/29/2021 12:03 PM CDT [facility] ABS. MONOCYTES 0.40 0.24 - 0.86 x10'3/uL 10/29/2021 12:03 PM CDT [facility] ABS. EOSINOPHILS 0.07 0.04 - 0.36 x10'3/uL 10/29/2021 12:03 PM CDT [facility] ABS. BASOPHILS 0.06 0.01 - 0.08 x10'3/uL 10/29/2021 12:03 PM CDT [facility] ABS. IMMATURE GRANULOCYTES 0.03 0.00 - 0.49 x10'3/uL 10/29/2021 12:03 PM T [facility] 10/29/2021 11:4 9 AM CDT us Al MARIE LABORATORY Final Result [facility] [address] [place] [address], documented in this encounter Visit Diagnoses Diagnosis [...] central pharmacy)1612 (Infusion Stop Time - Provider: Julita Islas RN) ketorolac (TORADOL) injection 15 mg [...] Depression Total Score: 0 03/08/19 9:30 AM [facility] documented as of this encounter Care Teams Clinical Education Assistant Relationship Specialty Start Date End Date Yasmin Segura II, MD [address] [place] [id number] PCP - General FAMILY PRACTICE 03/09/21 documented as of this encounter
--- OUTSIDE RECORDS SUMMARY | 2024-03-03 01:26 | XMS_ITS | Encounter Summary ---
Author Organization [facility] Address [address] [place] [address]. [place] [address] [place] [address] Care Team Providers Care Iron Worker Apprentice Name Role Phone Colton SILVEIRA MD, Yasmin Rushing Primary Care Provider Reason for Visit * Reason Comments Foot Pain * Auth/Cert Specialty Diagnoses / Procedures Referred By Lyla t Referred To Contact Diagnoses Hypokalemia Diabetic foot ulcer ([facility] HHS/HCC) Diabetic foot infection ([facility] HHS/HCC) Diabetic foot infection ([facility]) Procedures NONE Wanda Prado MD [address] [place] [address] Phone: tel: [phone] fax: Referral ID Status Reason Start Date Expiration Date Visits Re quested Visits Authorized [id number] 1 1 Encounter Details Date Type Department Care Team (Late st Contact Info) Description 12/22/2021 7:00 AM CDT - 12/22/2021 8:03 AM CDT Surgery [facility] [place] [address] Hubetr Cheek DPM [address], [place] [address] BONE BIOPSY RIGHT FIRST AND [...] [facility] Diagnosis: Diabetic foot infection ([facility]) Admission Condition: poor Discharged Condition: Good Code [...] an evaluation of her right foot per teaching music lessons recommendations as he was concerned about osteomyelitis. [...] EXTREMITY VASCULAR LAB Pat.Name: TYSON MCNEAL Pat.ID: [id number] .Date: 12/16/2021 Refer.MD: Yasmin Segura Exam Time: 2:52:00 PM Study Type:MARINO VS Arterial Doppler Legs NOHEMY Height: 66in Age: 2 1970,51Y Sex: FEMALE Sonogrphr: Shahla Toscano RDME, RVT Pat. Stat.:Outpatient Room: ER History / Clinical: Rt foot wounds. L>R severe leg pain. Ltfoot cool to touch with weak pulse. PMH- DM. HTN. HLD. neurop. L2, L3 amp. BMI 39. Prior 06/21/21- Rt1.12, Lt 1.24 Procedures: Doppler waveforms, Digit PPG, Systolic Pressures w/ADRIANA Race: -[place] ++++++++++++++++++++++++++++++++++++ SUMMARY: ++++++++++++++++++++++++++++++++++++ Joceline ADRIANA Criteria: >1.30 [...] ++++++++++++++++++++++++++++++++++++ FINDINGS: ++++++++++++++++++++++++++++++++++++++++++++++++++++++++++++++++++++++++ MEASUREMENTS: ++++++++++++++++++++++++++++++++++++ DOPPLER Left FLOOR CASHIER FLOOR CASHIER PSV 123 cm/s Left Dist Pop A Dist Pop A PSV 94.2 cm/s Left Dist COMPUTER FORENSIC EXAMINER Dist COMPUTER FORENSIC EXAMINER PSV 46.2 cm/s Left Dist DOMINGA Dist DOMINGA PSV 56.5 cm/s Right FLOOR CASHIER FLOOR CASHIER PSV 145 cm/s Right Dist Pop A Dist Pop A PSV 107 cm/s Right Dist COMPUTER FORENSIC EXAMINER Dist COMPUTER FORENSIC EXAMINER PSV 56.5 cm/s Right Dist DOMINGA Dist [...] 12/16/21 ECG 12 lead ?? Narrative ?? [place] Test Date: 2021-12-16 Pat Name: TYSON MCNEAL Department: Room: 4 Gender: Female Instrument Man: : 1970 Requested By: DESIREE MACKENZIE Order Number: [id number] Reading MD: Carroll Varela Measurements Intervals [place] Rate: 89 P: 34 TN: 160 QRS: 15 QRSD: 87 T: 102 [...] weekly labs, PCP agreed to follow ?? Security Officer patient on possible adverse effects of ABX [...] Major Edmond MD at 12/26/2021 8:11 PM BREAD PACKER D PACKER D PACKER documented in this encounter Discharge Instructions * Attachments The following attachments cannot be sent through Care Everywhere. * Diabetic Foot Ulcer Discharge Instructions (Malagasy) documented in this encounter Medications at Time [...] arthropathy, with long-term current use of insulin ([facility]) Inject 3 mg into the skin weekly. 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, with long-term current use of insulin ([facility]) USE 1 STRIP TO CHECK GLUCOSE TWICE DAILY 200 strip 3 2 01/02/20 22 HUMALOG MIX 75/25 (75-25) 100 UNIT/ML SuspensionIndicatio ns:Type 2 diabetes mellitus with retinopathy, with long-term current use of insulin, macular edema presence unspecified, unspecified laterality, unspecified retinopathy severity ([facility]) Inject 60 units ;subcutaneously in [...] arthropathy, with long-term current use of insulin ([facility]) USE 1 SYRINGE SUBCUTANEOUSLY TWICE [...] Medicare (Subsequent IMM) Signed Copy delivered D PACKER * David Grimes RN - 12/26/2021 2:35 [...] this hospitalization Outcome: Adequate for Discharge D PACKER * Shana Martinez, INDUSTRIAL PARAMEDIC - 12/26/2021 2:00 PM CST Spoke with Arel[facility] at [facility], nurse will be here around 2:00 to complete a teaching with patient and daughter. [facility] has accepted and will see patient tomorrow. I spoke with patient and daughter at bedside to inform them of above, they are agreeable. [facility] 12/26/21 3771 Discharge Planning Living Arrangements Spouse/Significant other;Children Support Systems Spouse/Significant other;Children;Family Members Type of Residence Private residence Assistance/Services Needed Yes Type of Assistance Needed Home Health Home Health services RN IV Infusion at discharge Yes Patient expects to be discharged to: Home DME Needed at Discharge No D PACKER * ELLEN Justice - 12/26/2021 10:13 AM [...] COLOR (U) LIGHT YELLOW TRANSPARENCY CLEAR Specific [place] (U) 1.024 1.001 - 1.030 U PH [...] EXTREMITY VASCULAR LAB Pat.Name: TYSON MCNEAL Pat.ID: [id number] .Date: 12/16/2021 Refer.MD: Yasmin Segura Exam Time: [...] waveforms, Digit PPG, Systolic Pressures w/ADRIANA Race: -[place] ++++++++++++++++++++++++++++++++++++ SUMMARY: ++++++++++++++++++++++++++++++++++++ Joceline ADRIANA Criteria: >1.30 [...] FINDINGS: ++++++++++++++++++++++++++++++++++++ ++++++++++++++++++++++++++++++++++++ MEASUREMENTS: ++++++++++++++++++++++++++++++++++++ DOPPLER Left FLOOR CASHIER FLOOR CASHIER PSV 123 cm/s Left Dist Pop A Dist Pop A PSV 94.2 cm/s Left Dist COMPUTER FORENSIC EXAMINER Dist COMPUTER FORENSIC EXAMINER PSV 46.2 cm /s Left Dist DOMINGA Dist DOMINGA PSV 56.5 cm/s Right FLOOR CASHIER FLOOR CASHIER PSV 145 cm/s Right Dist Pop A Dist Pop A PIS558 cm/s Right Dist COMPUTER FORENSIC EXAMINER Dist COMPUTER FORENSIC EXAMINER PSV 56.5 cm/s Right Dist DOMINGA Dist [...] encounter of 12/16/21 ECG 12 lead Narrative [place] Test Date: 2021-12-16 Pat Name: TYSON MCNEAL Department: Room: 4 Gender: Female Instrument Man: : 1970 Requested By: DESIREE MACKENZIE Order Number: [id number] Reading MD: Carroll Varela Measurements Intervals [place] Rate: 89 P: 34 TN: 160 QRS: 15 QRSD: 87 T: 102 [...] who can monitor his weekly labs ?? Security Officer patient on possible adverse effects of ABX [...] Major Edmond MD at 12/26/2021 8:11 PM BREAD PACKER D PACKER D PACKER * Carlos Alberto Pacheco RN - 12/26/2021 [...] Reduced Risk of Polypharmacy Outcome: Progressing D PACKER * Kortney Elias RN - 12/25/2021 6:33 [...] Reduced Risk of Polypharmacy Outcome: Progressing D PACKER * Erika Josue LCSW - 12/25/2021 3:26 PM CST Pt and spouse seen this date. Pt confirmed choice of [facility] for nursing in the home. SW contactedthe [facility] intake group and Rachel Pena with [facility] weekend staffing regarding the referral. They [...] resuming care tomorrow and will finalizeplans. D PACKER * ELLEN Justice - 12/25/2021 2:46 PM [...] COLOR (U) LIGHT YELLOW TRANSPARENCY CLEAR Specific [place] (U) 1.024 1.001 - 1.030 U PH [...] LOWER EXTREMITY VASCULAR LAB Pat.Name: TYSON MCNEAL Pat.ID:[id number] .Date: 12/16/2021 Refer.MD: Yasmin Segura Exam Time: [...] waveforms, Digit PPG, Systolic Pressures w/ADRIANA Race: -[place] ++++++++++++++++++++++++++++++++++++ SUMMARY: ++++++++++++++++++++++++++++++++++++ Joceline ADRIANA Criteria: >1.30 [...] ++++++++++++++++++++++++++++++++++++ FINDINGS: ++++++++++++++++++++++++++++++++++++++++++++++++++++++++++++++++++++++++ MEASUREMENTS: ++++++++++++++++++++++++++++++++++++ DOPPLER Left FLOOR CASHIER FLOOR CASHIER PSV 123 cm/s Left Dist Pop A Dist Pop A PSV 94.2 cm/s Left Dist COMPUTER FORENSIC EXAMINER Dist COMPUTER FORENSIC EXAMINER PSV 46.2 cm/s Left Dist DOMINGA Dist DOMINGA PSV 56.5 cm/s Right FLOOR CASHIER FLOOR CASHIER PSV 145 cm/s Right Dist Pop A Dist Pop A PSV 107 cm/s Right Dist COMPUTER FORENSIC EXAMINER Dist COMPUTER FORENSIC EXAMINER PSV 56.5 cm/s Right Dist DOMINGA Dist [...] foot. Ordered By: WANDA MERCER Interpreted By: Mrecy Irving MD, 12/16/2021 8:06 PM MRI right foot WO 12/17/21 1. Mild osteomyelitis of the distal first phalanx. 2. Mild osteomyelitis of the middle and distal second digit phalanges. 3. No drainable fluid collection or abscess. 4. Dorsal foot subcutaneous edema EKG: Results for orders placed or performed during the hospital encounter of 12/16/21 [address] [facility] [address] [place] [address] Test Date: 2021-12-16 Pat Name: TYSON MCNEAL Department: 41 Room: 4 Gender: Female Instrument Man: : 1970 Requested By: DESIREE MACKENZIE Order Number: [id number] Reading MD: Carroll Varela Measurements Intervals [place] Rate: 89 P: 34 TN: 160 QRS: 15 QRSD: 87 T: 102 [...] who can monitor his weekly labs ?? Security Officer patient on possible adverse effects of ABX and PICC line Discussed with CM, to find company Started with N/V/D Acidophilus bid PRN courtney KOENIG[-] ileus Diabetic foot wound, left 4th digit Continue treatment above. MRI left foot ordered. > Negative for osteo ?? Diabetes Hold Sitagliptin and Trulicity Continue home basal insulin accu checks [facility]-s/s protocol A1c=7.7 on 12/08/21 Pt had [...] Major Edmond MD at 12/25/2021 8:54 PM BREAD PACKER D PACKER D PACKER * ELLEN Justice - 12/24/2021 2:42 PM [...] COLOR (U) LIGHT YELLOW TRANSPARENCY CLEAR Specific [place] (U) 1.024 1.001 - 1.030 U PH [...] BILATERAL LOWER EXTREMITY VASCULAR LAB Pat.Name: TYSON MNCEAL Pat.ID:[id number] .Date: 12/16/2021 Refer.MD: Yasmin Segura Exam Time: 2:52:00 PM Study Type:MARINO VS Arterial Doppler Legs NOHEMY Height: 66in Age: 2 1970,51Y Sex: FEMALE Sonogrphr: Shahla Toscano RDME, T Pat. Stat.:Outpatient Room: ER History / Clinical: Rt foot wounds. L>R severe leg pain. Lt foot cool to touch with weak pulse. PMH- DM. HTN. HLD. neurop. L2, L3 amp. BMI 39. Prior 06/21/21- Rt 1.12, Lt 1.24 Procedures: Doppler waveforms, Digit PPG, Systolic Pressures w/ADRIANA Race: -[place] ++++++++++++++++++++++++++++++++++++ SUMMARY: ++++++++++++++++++++++++++++++++++++ Joceline ADRIANA Criteria: >1.30 [...] FINDINGS: ++++++++++++++++++++++++++++++++++++ ++++++++++++++++++++++++++++++++++++ MEASUREMENTS: ++++++++++++++++++++++++++++++++++++ DOPPLER Left FLOOR CASHIER FLOOR CASHIER PSV 123 cm/s Left Dist Pop A Dist Pop A PSV 94.2 cm/s Left Dist COMPUTER FORENSIC EXAMINER Dist COMPUTER FORENSIC EXAMINER PSV 46.2 cm/s Left Dist DOMINGA Dist DOMINGA PSV 56.5 cm/s Right FLOOR CASHIER FLOOR CASHIER PSV 145 cm/s Right Dist Pop A Dist Pop A PSV 107 cm/s Right Dist COMPUTER FORENSIC EXAMINER Dist COMPUTER FORENSIC EXAMINER PSV 56.5 cm/s Right Dist DOMINGA Dist [...] encounter of 12/16/21 ECG 12 lead Narrative [place] Test Date: 2021-12-16 Pat Name: TYSON MCNEAL Department: 41 Room: 4 Gender: Female Instrument Man: : 1970 Requested By: DESIREE MACKENZIE Order Number: [id number] Reading MD: Carroll Varela Measurements Intervals [place] Rate: 89 P: 34 TN: 160 QRS: 15 QRSD: 87 T: 102 [...] who can monitor his weekly labs ?? Security Officer patient on possible adverse effects of ABX [...] pt she does want to go home. Engine Dynamometer Tester has provided a complete list of the following types of agencies, HHC and Infusion Services. , to Patient utilizing the Clutter tablet. I have explainedthat the tablets will display becerril quality metrics along with any entity in which [facility] has a vested i nterest to [...] toe amputations of left foot ordered vancomycin zfexqlqw-ax-ikff for diabetic foot infection. Patient received a [...] toe amputations of left foot ordered vancomycin yhnhczal-wm-nppo for diabetic foot infection. Patient received a [...] Candidate Rudi PadillaD, BCPS * Shana Martinez, INDUSTRIAL PARAMEDIC - 12/23/2021 3:56 PM CDT 12/23 Discussed [...] COLOR (U) LIGHT YELLOW TRANSPARENCY CLEAR Specific [place] (U) 1.024 1.001 - 1.030 U PH [...] LOWER EXTREMITY VASCULAR LAB Pat.Name: TYSON MCNEAL Pat.ID:[id number] .Date: 12/16/2021 Refer.MD: Yasmin Segura Exam Time: 2:52:00 PM Study Type:MARINO VS Arterial Doppler Legs NOHEMY Height: 66in Age: 2 1970,51Y Sex: FEMALE Sonogrphr: Shahla Toscano RDME, RVT Pat. Stat.:Outpatient Room: ER History / Clinical: Rt foot wounds. L>R severe leg pain. Lt foot cool to touch with weak pulse. PMH- DM. HTN. HLD. neurop. L2, L3 amp. BMI 39. Prior 06/21/21- Rt 1.12, Lt 1.24 Procedures: Doppler waveforms, Digit PPG, Systolic Pressures w/ADRIANA Race: -[place] ++++++++++++++++++++++++++++++++++++ SUMMARY: ++++++++++++++++++++++++++++++++++++ Joceline ADRIANA Criteria: >1.30 [...] ++++++++++++++++++++++++++++++++++++ FINDINGS: ++++++++++++++++++++++++++++++++++++++++++++++++++++++++++++++++++++++++ MEASUREMENTS: ++++++++++++++++++++++++++++++++++++ DOPPLER Left FLOOR CASHIER FLOOR CASHIER PSV 123 cm/s Left Dist Pop A Dist Pop A PSV 94.2 cm/s Left Dist COMPUTER FORENSIC EXAMINER Dist COMPUTER FORENSIC EXAMINER PSV 46.2 cm/sLeft Dist DOMINGA Dist DOMINGA PSV 56.5 cm/s Right FLOOR CASHIER FLOOR CASHIER PSV 145 cm/s Right Dist Pop A Dist Pop A PSV 107cm/s Right Dist COMPUTER FORENSIC EXAMINER Dist COMPUTER FORENSIC EXAMINER PSV 56.5 cm/s Right Dist DOMINGA Dist [...] osteomyelitis, MRI is recommended. ReferredBy: Interpreted By: Isaaís Jones MD, 11/29/2021 8:02 AM XR MULTI [...] of 12/16/21 ECG [address] [facility] Test Date: 2021-12-16 Pat Name: TYSON MCNEAL Department: Room: 4 Gender: Female Instrument Man: : 1970 Requested By: DESIREE MACKENZIE Order Number: [id number] Reading MD: Carroll Varela Measurements Intervals [place] Rate: 89 P: 34 TN: 160 QRS: 15 QRSD: 87 T: 102 [...] Darian SOUSA, RN, EMTP * Shana Martinez, INDUSTRIAL PARAMEDIC - 12/22/2021 3:51 PM CDT 12/22 Awaiting [...] COLOR (U) LIGHT YELLOW TRANSPARENCY CLEAR Specific [place] (U) 1.024 1.001 - 1.030 U PH [...] EXTREMITY VASCULAR LAB Pat.Name: TYSON MCNEAL Pat.ID: [id number] .Date: 12/16/2021 Refer.MD: Yasmin Segura Exam Time: [...] waveforms, Digit PPG, Systolic Pressures w/ADRIANA Race: -[place] ++++++++++++++++++++++++++++++++++++ SUMMARY: ++++++++++++++++++++++++++++++++++++ Joceline ADRIANA Criteria: >1.30 [...] ++++++++++++++++++++++++++++++++++++ FINDINGS: ++++++++++++++++++++++++++++++++++++++++++++++++++++++++++++++++++++++++ MEASUREMENTS: ++++++++++++++++++++++++++++++++++++ DOPPLER Left FLOOR CASHIER FLOOR CASHIER PSV 123 cm/s Left Dist Pop A Dist Pop A PSV 94.2 cm/s Left Dist COMPUTER FORENSIC EXAMINER Dist COMPUTER FORENSIC EXAMINER PSV 46.2 cm/s Left Dist DOMINGA Dist DOMINGA PSV 56.5 cm/s Right FLOOR CASHIER FLOOR CASHIER PSV 145 cm/s Right Dist Pop A Dist Pop A PSV 107 cm/s Right Dist COMPUTER FORENSIC EXAMINER Dist COMPUTER FORENSIC EXAMINER PSV 56.5 cm/s Right Dist DOMINGA Dist [...] osteomyelitis, MRI is recommended. ReferredBy: Interpreted By: Isaísa Jones MD, 11/29/2021 8:02 AM XR MULTI [...] encounter of 12/16/21 ECG 12 lead Narrative [address] Test Date: 2021-12-16 Pat Name: TYSON MCNEAL Department: 41 Room: 4 Gender: Female Instrument Man: : 1970 Requested By: DESIREE MACKENZIE Order Number: [id number] Reading MD: Carroll Varela Measurements Intervals [place] Rate: 89 P: 34 TN: 160 QRS: 15 QRSD: 87 T: 102 [...] toe amputations of left foot ordered vancomycin zswthfer-yb-ptyk for diabetic foot infection. Patient received a [...] 10 mg Rectal Daily PRN Wanda Mercer ANIMAL GENETICIST ??? bisacodyl EC (DULCOLAX) tablet 5 mg 5 mg Oral Daily PRN Wanda Mercer APRN ??? cefTRIAXone (ROCEPHIN) 1 g in sodium chloride 0.9 % 50 mL IVPB 1 g Intravenous Q24H Wanda Mercer ANIMAL GENETICIST Stopped at 12/21/21 1514 ??? chlorhexidine (PERIDEX) 0.12 % solution 15 mL 15 mL Mouth/Throat PRN Hubert Cheek DPM ??? cyclobenzaprine (FLEXERIL) tablet 10 mg 10 mg Oral TID PRN Wanda Ronnie Kian, ANIMAL GENETICIST ??? dextrose 10 % bolus infusion 125-250 mL 125-250 mL Intravenous PRN Wanda Trujillo Kian ANIMAL GENETICIST ??? docusate sodium (COLACE) capsule 100 mg 100 mg Oral BID David Schofield PA-C 100 mg at 12/20/21 0919 ??? glucagon injection 1 mg 1 mg Intramuscular Once PRN Wanda Ronnie Kian ANIMAL GENETICIST ??? glucose oral gel 32-64 mL 15-30 g of dextrose Oral PRN Wanda Trujillo Kian ANIMAL GENETICIST ??? heparin (porcine) injection 5,000 Units 5,000 Units Subcutaneous 2 times per day Wanda Trujillo Kian ANIMAL GENETICIST 5,000 Units at 12/21/212032 ??? HYDROcodone-acetaminophen (NORCO) 5-325 MG tablet 1 tablet 1 tablet Oral Q6H PRN Eduardo Aguillon, ANIMAL GENETICIST 1 tablet at 12/21/21 1904 ??? hydrOXYzine (VISTARIL) capsule 25 mg 25 mg Oral Nightly at bedtime Wanda Ronnie Kian ANIMAL GENETICIST 25 mg at 12/21/212032 ??? insulin glargine [...] Units Subcutaneous Nightly at bedtime Eduardo Aguillon, ANIMAL GENETICIST 7 Units at 12/21/212031 ??? lactated ringers infusion Intravenous Continuous Viet Araujo MD ??? linaCLOtide (LINZESS) capsule 145 mcg 145 mcg Oral QAM AC Roxana Angelique Chandler, APNP 145 mcg at 12/21/21 0626 ??? morphine injection 1 mg 1 mg Intravenous Q3H PRN Wanda Ronnie Kian ANIMAL GENETICIST 1 mg at 12/19/212157 ??? naLOXone (NARCAN) [...] packet 1 packet 1 packet Oral Daily Davdi Schofield PA-C 1 packetat 12/19/21 0853 ??? [...] biopsy pending. HUBERT HERNANDEZ MD 12/21/2021 D PACKER * Salma Martinez, PharmD - 12/21/2021 4:12 [...] toe amputations of left foot ordered vancomycin gxgwistj-oc-mlkh for diabetic foot infection. Patient received a [...] Salma Martinez PharmD, BCPS * Shana Martinez, INDUSTRIAL PARAMEDIC - 12/21/2021 3:58 PM CDT 12/21 Discussed in rounds, podiatry consulted for possible bone biopsy cw * Orxana ELLEN Jacques - 12/21/2021 10:11 AM CDT [...] COLOR (U) LIGHT YELLOW TRANSPARENCY CLEAR Specific [place] (U) 1.024 1.001 - 1.030 U PH [...] LOWER EXTREMITY VASCULAR LAB Pat.Name: TYSON MCNEAL Pat.ID:[id number] .Date: 12/16/2021 Refer.MD: Yasmin Segura Exam Time: [...] waveforms, Digit PPG, Systolic Pressures w/ADRIANA Race: -[place] ++++++++++++++++++++++++++++++++++++ SUMMARY: ++++++++++++++++++++++++++++++++++++ Joceline ADRIANA Criteria: >1.30 [...] FINDINGS: ++++++++++++++++++++++++++++++++++++ ++++++++++++++++++++++++++++++++++++ MEASUREMENTS: ++++++++++++++++++++++++++++++++++++ DOPPLER Left FLOOR CASHIER FLOOR CASHIER PSV 123 cm/s Left Dist Pop A Dist Pop A PSV 94.2 cm/s Left Dist COMPUTER FORENSIC EXAMINER Dist COMPUTER FORENSIC EXAMINER PSV 46.2 cm/s Left Dist DOMINGA Dist DOMINGA PSV 56.5 cm/s Right FLOOR CASHIER FLOOR CASHIER PSV 145 cm/s Right Dist Pop A Dist Pop A PSV 107 cm/s Right Dist COMPUTER FORENSIC EXAMINER Dist COMPUTER FORENSIC EXAMINER PSV 56.5 cm/s Right Dist DOMINGA Dist [...] encounter of 12/16/21 ECG 12 lead Narrative [address] Test Date: 2021-12-16 Pat Name: TYSON MCNEAL Department: Room: 4 Gender: Female Instrument Man: : 1970 Requested By: DESIREE MACKENZIE Order Number: [id number] Reading MD: Carroll Varela Measurements Intervals [place] Rate: 89 P: 34 TN: 160 QRS: 15 QRSD: 87 T: 102 [...] toe amputations of left foot ordered vancomycin epugciab-cs-jffn for diabetic foot infection. Patient received a [...] due to small target. Diabetic foot infection ([facility]) Current Facility-Administered Medications Medication Dose Route Frequency Provider Last Rate Last Admin ??? acetaminophen (TYLENOL) tablet 650 mg 650 mg Oral Q4H PRN Eduardo Aguillon, ANIMAL GENETICIST ??? amLODIPine (NORVASC) tablet 10 mg 10 mg Oral nightly Crystal M Brown, ANIMAL GENETICIST 10 mg at 12/19/212157 ??? atorvastatin (LIPITOR) tablet 20 mg 20 mg Oral Daily Crystal M Brown, ANIMAL GENETICIST 20 mg at 12/20/21918 ??? bisacodyl (DULCOLAX) suppository 10 mg 10 mg Rectal Daily PRN Crystal M Brown, ANIMAL GENETICIST ??? bisacodyl EC (DULCOLAX) tablet 5 mg 5 mg Oral Daily PRN Crystal M Brown, ANIMAL GENETICIST ??? cefTRIAXone (ROCEPHIN) 1 g in sodium chloride 0.9 % 50 mL IVPB 1 g Intravenous Q24H Wanda Mercer APRN Stopped at 12/20/21 1337 ??? cyclobenzaprine (FLEXERIL) tablet 10 mg 10 mg Oral TID PRN Wanda Ronnie Kian ANIMAL GENETICIST ??? dextrose 10 % bolus infusion 125-250 mL 125-250 mL Intravenous PRN Wanda Ronnie Kian ANIMAL GENETICIST ??? docusate sodium (COLACE) capsule 100 mg 100 mg Oral BID David Schofield PA-C 100 mg at 12/20/21918 ??? glucagon injection 1 mg 1 mg Intramuscular Once PRN Wanda Mercer ANIMAL GENETICIST ??? glucose oral gel 32-64 mL 15-30 g of dextrose Oral PRN Wanda Ronnie Kian ANIMAL GENETICIST ??? heparin (porcine) injection 5,000 Units 5,000 Units Subcutaneous 2 times per day Wanda Mercer APRN 5,000 Units at 12/20/21918 ??? hydroCHLOROthiazide (HYDRODIURIL) tablet 25 mg 25 mg Oral QAM Wanda Mercer APRN 25 mg at 12/20/21918 ??? HYDROcodone-acetaminophen (NORCO) 5-325 MG tablet 1 tablet 1 tablet Oral Q6H PRN Eduardo Aguillon, ANIMAL GENETICIST ??? hydrOXYzine (VISTARIL) capsule 25 mg 25 mg Oral Nightly at bedtime Wanda Mercer APRN 25 mg at 12/19/212200 ??? insulin glargine (LANTUS) injection 12 Units 0.125 Units/kg Subcutaneous Nightly at bedtime Eduardo Aguillon, ANIMAL GENETICIST ??? insulin lispro (HUMALOG) injection 0-16 Units 0-16 Units Subcutaneous TID AC Eduardo Aguillon, ANIMAL GENETICIST And ??? insulin lispro (HUMALOG) injection 0-8 Units 0-8 Units Subcutaneous Nightly at bedtime Eduardo Aguillon, ANIMAL GENETICIST ??? linaCLOtide (LINZESS) capsule 145 mcg 145 mcg Oral QAM AC Roxana Chandler APSUSAN ??? lisinopril (PRINIVIL) tablet 40 mg 40 mg Oral QPM Wanda Mercer ANIMAL GENETICIST 40 mg at 12/19/212157 ??? morphine injection [...] HUBERT HERNANDEZ MD 12/20/2021 * Shana Martinez, INDUSTRIAL PARAMEDIC - 12/20/2021 3:55 PM CDT 12/20 Discussed in rounds, awaiting MRI and vascular surgery recommendations cw * Narda Sanchez RN - 12/20/2021 3:36 PM CDT This RN called MRI to check on possible time for Lety's Left foot MRI. [facility] [...] Outcome: Met This Shift * Eduardo Aguillon, ANIMAL GENETICIST - 12/20/2021 11:04 AM CDT Hospitalist Daily [...] COLOR (U) LIGHT YELLOW TRANSPARENCY CLEAR Specific [place] (U) 1.024 1.001 - 1.030 U PH [...] EXTREMITY VASCULAR LAB Pat.Name: TYSON MCNEAL Pat.ID: [id number] .Date: 12/16/2021 Refer.MD: Yasmin Segura Exam Time: [...] waveforms, Digit PPG, Systolic Pressures w/ADRIANA Race: -[place] ++++++++++++++++++++++++++++++++++++ SUMMARY: ++++++++++++++++++++++++++++++++++++ Joceline ADRIANA Criteria: >1.30 [...] ++++++++++++++++++++++++++++++++++++ FINDINGS: ++++++++++++++++++++++++++++++++++++++++++++++++++++++++++++++++++++++++ MEASUREMENTS: ++++++++++++++++++++++++++++++++++++ DOPPLER Left FLOOR CASHIER FLOOR CASHIER PSV 123 cm/s Left Dist Pop A Dist Pop A PSV 94.2 cm/s Left Dist COMPUTER FORENSIC EXAMINER Dist COMPUTER FORENSIC EXAMINER PSV 46.2 cm/sLeft Dist DOMINGA Dist DOMINGA PSV 56.5 cm/s Right FLOOR CASHIER FLOOR CASHIER PSV 145 cm/s Right Dist Pop A Dist Pop A PSV 107cm/s Right Dist COMPUTER FORENSIC EXAMINER Dist COMPUTER FORENSIC EXAMINER PSV 56.5 cm/s Right Dist DOMINGA Dist [...] encounter of 12/16/21 ECG 12 lead Narrative [address] Test Date: 2021-12-16 Pat Name: TYSON MCNEAL Department: Room: 4 Gender: Female Instrument Man: : 1970 Requested By: DESIREE MACKENZIE Order Number: [id number] Reading MD: Carroll Varela Measurements Intervals [place] Rate: 89 P: 34 TN: 160 QRS: 15 QRSD: 87 T: 102 [...] COLOR (U) LIGHT YELLOW TRANSPARENCY CLEAR Specific [place] (U) 1.024 1.001 - 1.030 U PH [...] EXTREMITY VASCULAR LAB Pat.Name: TYSON MCNEAL Pat.ID: [id number] .Date: 12/16/2021 Refer.MD: Yasmin Segura Exam Time: [...] waveforms, Digit PPG, Systolic Pressures w/ADRIANA Race: -[place] ++++++++++++++++++++++++++++++++++++ SUMMARY: ++++++++++++++++++++++++++++++++++++ Joceline ADRIANA Criteria: >1.30 [...] FINDINGS: ++++++++++++++++++++++++++++++++++++ ++++++++++++++++++++++++++++++++++++ MEASUREMENTS: ++++++++++++++++++++++++++++++++++++ DOPPLER Left FLOOR CASHIER FLOOR CASHIER PSV 123 cm/s Left Dist Pop A Dist Pop A PSV 94.2 cm/s Left Dist COMPUTER FORENSIC EXAMINER Dist COMPUTER FORENSIC EXAMINER PSV 46.2 cm/s Left Dist DOMINGA Dist DOMINGA PSV 56.5 cm/s Right FLOOR CASHIER FLOOR CASHIER PSV 145 cm/s Right Dist Pop A Dist Pop A PSV 107 cm/s Right Dist COMPUTER FORENSIC EXAMINER Dist COMPUTER FORENSIC EXAMINER PSV 56.5 cm/s Right Dist DOMINGA Dist [...] encounter of 12/16/21 ECG 12 lead Narrative [place] Test Date: 2021-12-16 Pat Name: TYSON MCNEAL Department: 41 Room: 4 Gender: Female Instrument Man: : 1970 Requested By: DESIREE MACKENZIE Order Number: [id number] Reading MD: Carroll Varela Measurements Intervals [place] Rate: 89 P: 34 TN: 160 QRS: 15 QRSD: 87 T: 102 [...] toe amputations of left foot ordered vancomycin [id number] for diabetic foot infection. Patient received a [...] COLOR (U) LIGHT YELLOW TRANSPARENCY CLEAR Specific [place] (U) 1.024 1.001 - 1.030 U PH [...] EXTREMITY VASCULAR LAB Pat.Name: TYSON MCNEAL Pat.ID: [id number] .Date: 12/16/2021 Refer.MD: Yasmin Segura Exam Time: [...] waveforms, Digit PPG, Systolic Pressures w/ADRIANA Race: -[place] ++++++++++++++++++++++++++++++++++++ SUMMARY: ++++++++++++++++++++++++++++++++++++ Joceline ADRIANA Criteria: >1.30 [...] ++++++++++++++++++++++++++++++++++++ FINDINGS: ++++++++++++++++++++++++++++++++++++++++++++++++++++++++++++++++++++++++ MEASUREMENTS: ++++++++++++++++++++++++++++++++++++ DOPPLER Left FLOOR CASHIER FLOOR CASHIER PSV 123 cm/s Left Dist Pop A Dist Pop A PSV 94.2 cm/s Left Dist COMPUTER FORENSIC EXAMINER Dist COMPUTER FORENSIC EXAMINER PSV 46.2 cm/sLeft Dist DOMINGA Dist DOMINGA PSV 56.5 cm/s Right FLOOR CASHIER FLOOR CASHIER PSV 145 cm/s Right Dist Pop A Dist Pop A PSV 107cm/s Right Dist COMPUTER FORENSIC EXAMINER Dist COMPUTER FORENSIC EXAMINER PSV 56.5 cm/s Right Dist DOMINGA Dist [...] of 12/16/21 ECG [address] [facility] [address] Test Date: 2021-12-16 Pat Name: TYSON MCNEAL Department: Room: 4 Gender: Female Instrument Man: : 1970 Requested By: DESIREE MACKENZIE Order Number: [id number] Reading MD: Carroll Varela Measurements Intervals [place] Rate: 89 P: 34 TN: 160 QRS: 15 QRSD: 87 T: 102 [...] subcutaneous ? EDUARDO AGUILLON APRN Cosigned by oSraya Sanz MD at 12/18/2021 3:36 PM CDT [...] in the ER. Will continue vancomycin therapy [id number] mg every 24 hours. A trough will [...] COLOR (U) LIGHT YELLOW TRANSPARENCY CLEAR Specific [place] (U) 1.024 1.001 - 1.030 U PH [...] EXTREMITY VASCULAR LAB Pat.Name: TYSON MCNEAL Pat.ID: [id number] .Date: 12/16/2021 Refer.MD: Yasmin Segura Exam Time: 2:52:00 PM Study Type:MARINO VS Arterial Doppler Legs NOHEMY Height: 66in Age: 2 1970,51Y Sex: FEMALE Sonogrphr: Shahla Toscano RDME, RVT Pat. Stat.:Outpatient Room: ER History / Clinical: Rt foot wounds. L>R severe leg pain. Lt foot cool to touch with weak pulse. PMH- DM. HTN. HLD. neurop. L2, L3 amp. BMI 39. Prior 06/21/21- Rt 1.12, Lt 1.24 Procedures: Doppler waveforms, Digit PPG, Systolic Pressures w/ADRIANA Race: -[place] ++++++++++++++++++++++++++++++++++++ SUMMARY: ++++++++++++++++++++++++++++++++++++ Joceline ADRIANA Criteria: >1.30 [...] ++++++++++++++++++++++++++++++++++++ FINDINGS: ++++++++++++++++++++++++++++++++++++++++++++++++++++++++++++++++++++++++ MEASUREMENTS: ++++++++++++++++++++++++++++++++++++ DOPPLER Left FLOOR CASHIER FLOOR CASHIER PSV 123 cm/s Left Dist Pop A Dist Pop A PSV 94.2 cm/s Left Dist COMPUTER FORENSIC EXAMINER Dist COMPUTER FORENSIC EXAMINER PSV 46.2 cm/sLeft Dist DOMINGA Dist DOMINGA PSV 56.5 cm/s Right FLOOR CASHIER FLOOR CASHIER PSV 145 cm/s Right Dist Pop A Dist Pop A PSV 107cm/s Right Dist COMPUTER FORENSIC EXAMINER Dist COMPUTER FORENSIC EXAMINER PSV 56.5 cm/s Right Dist DOMINGA Dist [...] GreatToe P 100 mmHg Left ADRIANA PT ARDIANA PT 0.973 Left ADRIANA DP ADRIANA DP [...] of 12/16/21 ECG [address] [facility] Test Date: 2021-12-16 Pat Name: TYSON MCNEAL Department: 41 Room: 4 Gender: Female Instrument Man: : 1970 Requested By: DESIREE MACKENZIE Order Number: [id number] Reading MD: Carroll Varela Measurements Intervals [place] Rate: 89 P: 34 TN: 160 QRS: 15 QRSD: 87 T: 102 [...] case management should needs arise closer to ne. 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 She denies [...] No results for input(s): PH, PCO2, PO2, [id number], BICARBWB, BASEDEFICIT, BASEEXCESS in the [id number] hours. 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 amLODIPine (NORVASC) tablet 10 mg, 10 mg, Oral, nightly, Roxana Chandler APNP, 10 mg at 12/23/211999 ??? atorvastatin (LIPITOR) tablet 20 mg, 20 mg, Oral, Daily, Wanda Mercer, ANIMAL GENETICIST, 20 mg at 12/24/21 0919 ??? bisacodyl (DULCOLAX) suppository 10 mg, 10 mg, Rectal, Daily PRN, Wanda Mercer, ANIMAL GENETICIST ??? bisacodyl EC (DULCOLAX) tablet 5 mg, 5 mg, Oral, Daily PRN, Wanda Mercer ANIMAL GENETICIST ??? ceFEPIme (MAXIPIME) 2 g in sodium chloride 0.9 % 100 mL IVPB, 2 g, Intravenous, Q8H, Roxana Chandler, ELLEN, Stopped at 12/24/21 0449 ??? cyclobenzaprine (FLEXERIL) tablet 10 mg, 10 mg, Oral, TID PRN, Wanda Mercer, ANIMAL GENETICIST, 10 mg at 12/23/21 0907 ??? dextrose 10 % bolus infusion 125-250 mL, 125-250 mL, Intravenous, PRN, Wanda Mercer, ANIMAL GENETICIST ??? docusate sodium (COLACE) capsule 100 mg, 100 mg, Oral, BID, David Schofield PA-C, 100 mg at 12/23/211999 ??? glucagon injection 1 mg, 1 mg, Intramuscular, Once PRN, Wanda Mercer ANIMAL GENETICIST ??? glucose oral gel 32-64 mL, 15-30 g of dextrose, Oral, PRN, Wanda Mercer ANIMAL GENETICIST ??? heparin (porcine) injection 5,000 Units, 5,000 [...] 1 tablet, Oral, Q6H PRN, Eduardo Aguillon, ANIMAL GENETICIST, 1 tablet at 12/23/21 0907 ??? hydrOXYzine [...] 0-8 Units, Subcutaneous, Nightly atbedtime, Eduardo Aguillon, ANIMAL GENETICIST, 4 Units at 12/23/212009 ??? lactated ringers [...] Procedure Component Value Units Date/Time CULTURE, ANAEROBIC [[id number]] Collected: 12/22/21714 Order Status: Completed Lab Status: Preliminary result Updated: 12/24/211116 Specimen: WOUND from TOE, RIGHT Spec. Description TOE,RIGHT Special Requests: NO SPECIAL REQUEST Gram Stain Result NO WHITE BLOOD CELLS SEEN Gram Stain Result -- RARE EPITHELIAL CELLS SEEN Gram Stain Result NO ORGANISMS SEEN Culture Result: NO GROWTH 2 DAYS CULTURE, WOUND, W/GRAM STAIN [[id number]] Collected: 12/22/21714 Order Status: Canceled Lab Status: No result Specimen: WOUND from TOE, RIGHT CULTURE, ANAEROBIC [[id number]] Collected: 12/22/21713 Order Status: Completed Lab Status: [...] GROWTH 2 DAYS CULTURE, WOUND, W/GRAM STAIN [[id number]] Collected: 12/22/21713 Order Status: Canceled Lab Status: No result Specimen: WOUND from TOE, RIGHT CORONAVIRUS (COVID-19) ANTIGEN (In-house [place]) [[id number]] Collected: 12/22/21545 Order Status: Completed Lab Status: [...] YES PATIENT IN ICU NO RESIDENT OF [facility] NO NOT CULTURE, BACTERIA, BLOOD [[id number]] Collected: 12/16/211814 Order Status: Completed Lab Status: Final result Updated: 12/21/21 1140 Specimen: BLOOD Spec. Description BLOOD Special Requests: NO SPECIAL REQUEST Culture Result: NO GROWTH 5 DAYS CULTURE, BACTERIA, BLOOD [[id number]] Collected: 12/16/211814 Order Status: Completed Lab Status: [...] 650 mg, Oral, Q4H PRN, Eduardo Aguillon, ANIMAL GENETICIST ??? amLODIPine (NORVASC) tablet 10 mg, 10 [...] 1 tablet, Oral, Q6H PRN, Eduardo Aguillon, ANIMAL GENETICIST, 1 tablet at 12/20/21 1749 ??? hydrOXYzine [...] Units, 0-8 Units, Subcutaneous, Nightly at bedtime, Edurado Aguillon, ANIMAL GENETICIST, 8 Units at 12/20/212228 ??? linaCLOtide (LINZESS) [...] (XELLIA), 1,250 mg, Intravenous, Q24H, Eduardo Aguillon, ANIMAL GENETICIST, Stopped at 12/20/212017 ??? Pharmacy to dose vancomycin, , , Once AND vancomycin pharmacy to dose placeholder, , Intravenous, See Admin Instructions, Wanda Mercer, ANIMAL GENETICIST ALL: Review of patient's allergies indicates: Fish [...] hours asneeded for Nausea. 07/11/21 Yes Mendy iMrza MD RELION INSULIN SYRINGE 31G X 15/64 [...] LOWER EXTREMITY VASCULAR LAB Pat.Name: TYSON MCNEAL Pat.ID:[id number] .Date: 12/16/2021 Refer.MD: Yasmin Segura Exam Time: [...] waveforms, Digit PPG, Systolic Pressures w/ADRIANA Race: -[place] ++++++++++++++++++++++++++++++++++++ SUMMARY: ++++++++++++++++++++++++++++++++++++ Joceline ADRIANA Criteria: >1.30 [...] FINDINGS: ++++++++++++++++++++++++++++++++++++ ++++++++++++++++++++++++++++++++++++ MEASUREMENTS: ++++++++++++++++++++++++++++++++++++ DOPPLER Left FLOOR CASHIER FLOOR CASHIER PSV 123 cm/s Left Dist Pop A Dist Barak PSV 94.2 cm/s Left Dist COMPUTER FORENSIC EXAMINER Dist COMPUTER FORENSIC EXAMINER PSV 46.2 cm/s Left Dist DOMINGA Dist DOMINGA PSV 56.5 cm/s Right CFACFA PSV 145 cm/s Right Dist Pop A Dist Pop A PSV 107 cm/s Right Dist COMPUTER FORENSIC EXAMINER Dist COMPUTER FORENSIC EXAMINER PSV 56.5 cm/s Right Dist DOMINGA Dist [...] needed Pt agreed to take medication D PACKER * Adenike Maynard RN - 12/22/2021 6:45 [...] limb pain. 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 These were debrided. She also mentioned that she has been having increasingly severe pain in the lower legs, much moreso on the left. 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 noted that the foot was cool to [...] encounter of 12/16/21 ECG 12 lead Narrative [facility] [address] [place] [address] Test Date: 2021-12-16 Pat Name: TYSON MCNEAL Department: 41 Room: 4 Gender: Female Instrument Man: : 1970 Requested By: DESIREE MACKENZIE Order Number: [id number] Reading MD: Carroll Varela Measurements Intervals [place] Rate: 89 P: 34 TN: 160 QRS: 15 QRSD: 87 T: 102 [...] FOOT LT 2V Final Result by User, [id number] (12/16 2009) PROCEDURE: XR FOOT LT 2V [...] XR ABD KUB Final Result by User, [id number] (12/16 2006) HISTORY: no BM in 5 [...] ADRIANA LOW EXT Preliminary Result by User, [id number] (12/16 1921) ARTERIAL DOPPLER - ADRIANA BILATERAL LOWER EXTREMITY VASCULAR LAB Pat.Name: TYSON MCNEAL Pat.ID: [id number] .Date: 12/16/2021 Refer.MD: Yasmin Segura Exam Time: [...] waveforms, Digit PPG, Systolic Pressures w/ADRIANA Race: -[place] ++++++++++++++++++++++++++++++++++++ SUMMARY: ++++++++++++++++++++++++++++++++++++ Joceline ADRIANA Criteria: >1.30 [...] FINDINGS: ++++++++++++++++++++++++++++++++++++ ++++++++++++++++++++++++++++++++++++ MEASUREMENTS: ++++++++++++++++++++++++++++++++++++ DOPPLER Left FLOOR CASHIER FLOOR CASHIER PSV 123 cm/s Left Dist Pop A Dist Pop A PSV 94.2 cm/s Left Dist COMPUTER FORENSIC EXAMINER Dist COMPUTER FORENSIC EXAMINER PSV 46.2 cm/s Left Dist DOMINGA Dist DOMINGA PSV 56.5 cm/s Right FLOOR CASHIER FLOOR CASHIER PSV 145 cm/s Right Dist Pop A Dist Pop A PSV 107 cm/s Right Dist COMPUTER FORENSIC EXAMINER Dist COMPUTER FORENSIC EXAMINER PSV 56.5 cm/s Right Dist DOMINGA Dist [...] MULTI TOE RT Final Result by User, [id number] (12/16 1500) IMAGING STUDIES: XR MULTI TOE [...] right, 1.08 left. 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 I [...] st Contact Info) Description 03/14/2024 11:45 AM BREAD PACKER Office Visit [facility]-[address] [phone] Marvin Mckeon MD [facility] [address] [place] [address] 03/20/2024 11:30 AM BREAD PACKER Office Visit [facility] - [place] [phone] Yasmin Segura II, MD [address] [place] [phone] documented as of this encounter Procedures Procedure Name Priority Date/Time Associated Diagnosis Comments POCT GLUCOSE - CORREA DOCKED DEVICE Routine 12/26/2021 11:41 AM BREAD PACKER POCT GLUCOSE - CORREA DOCKED DEVICE Routine 12/26/2021 6:23 AM BREAD PACKER COMPREHENSIVE METABOLIC PANEL Routine 12/26/2021 3:49 AM BREAD PACKER CBC W/DIFF AUTOMATED Routine 12/26/2021 3:49 AM BREAD PACKER LIPASE Routine 12/26/2021 3:49 AM BREAD PACKER POCT GLUCOSE - CORREA DOCKED DEVICE Routine 12/25/2021 8:37 PM BREAD PACKER CULTURE STREP A Routine 12/25/2021 5:15 PM BREAD PACKER POCT GLUCOSE - CORREA DOCKED DEVICE Routine 12/25/2021 3:09 PM BREAD PACKER XR ABD KUB Today 12/25/2021 12:55 PM BREAD PACKER POCT GLUCOSE - CORREA DOCKED DEVICE Routine 12/25/2021 11:57 AM BREAD PACKER POCT GLUCOSE - CORREA DOCKED DEVICE Routine 12/25/2021 7:25 AM BREAD PACKER COMPREHENSIVE METABOLIC PANEL Routine 12/25/2021 3:42 AM BREAD PACKER CBC W/DIFF AUTOMATED Routine 12/25/2021 3:42 AM BREAD PACKER CK (CPK) Routine 12/25/2021 3:42 AM BREAD PACKER POCT GLUCOSE - CORREA DOCKED DEVICE Routine [...] 12/18/2021 9:14 PM CDT POCT GLUCOSE - CORRAE DOCKED DEVICE Routine 12/18/2021 5:51 PM CDT [...] * (ABNORMAL) POCT glucose (12/26/2021 11:41 AM BREAD PACKER) GLUCOSE POC 143(H) 70 - 99 mg/dL 12/26/2021 11:48 AM BREAD PACKER [facility] 12/26/2021 11:4 1 AM BREAD PACKER us Roxana HUGHES POCT ORDERABLES - DEVICE Final Result Performing Organization Address City/[facility]/ZIP Co de Phone Number [facility] [address] [place] [address], [place] [phone] * POCT glucose (12/26/2021 6:23 AM BREAD PACKER) GLUCOSE POC 83 70 - 99 mg/dL 12/26/2021 6:34 AM BREAD PACKER [facility] 12/26/2021 6:23 AM BREAD PACKER us Roxana HUGHES POCT ORDERABLES - DEVICE Final Result [facility] [address] [place] [address], [place] [phone] * LIPASE (12/26/2021 3:49 AM BREAD PACKER) [facility] LIPASE 143 73 - 393 UNITS/L 12/26/2021 7:59 AM BREAD PACKER [facility] 12/26/2021 3:49 AM BREAD PACKER Roxana Merino Geraldine APNP LABORATORY Final Res ult [facility] [address] [place] [address], [place] [phone] * (ABNORMAL) CBC W/DIFF AUTOMATED (12/26/2021 3:49 AM BREAD PACKER) [facility] WBC 10.2 4.5 - 11.0 x10'3/uL 12/26/2021 3:56 AM BREAD PACKER [facility] RBC 3.31(L) 4.20 - 5.40 x10'6/uL 12/26/2021 3:56 AM [facility] HGB 10.0(L) 12.0 - 16.0 G/DL 12/26/2021 3:56 AM [facility] HCT 29.7(L) 38.0 - 48.0 % 12/26/2021 3:56 AM [facility] MCV 89.7 81.0 - 99.0 FL 12/26/2021 3:56 AM BREAD PACKER [facility] MCH 30.2 27.0 - 31.0 PG 12/26/2021 3:56 AM BREAD PACKER [facility] MCHC 33.7 32.0 - 36.0 G/DL 12/26/2021 3:56 AM BREAD PACKER [facility] RDW 13.1 11.5 - 14.5 % 12/26/2021 3:56 AM [facility] PLT 240 130 - 400 x10'3/uL 12/26/2021 3:56 AM [facility] MPV 10.8 9.3 - 12.2 FL 12/26/2021 3:56 AM [facility] DIFFERENTIAL TYPE AUTOMATED DIFFERENTIAL 12/26/2021 3:56 AM [facility] NEUTROPHILS % 60.8 % 12/26/2021 3:56 AM [facility] LYMPHOCYTES % 30.5 % 12/26/2021 3:56 AM [facility] MONOCYTES % 5.9 % 12/26/2021 3:56 AM [facility] EOSINOPHILS 1.9 % 12/26/2021 3:56 AM [facility] BASOPHILS 0.5 % 12/26/2021 3:56 AM [facility] IMMATURE GRANS % 0.4 % 12/27/19 3:56 AM [facility] ABS. NEUTROPHILS TOTAL 6.21 1.80 - 7.70 x10'3/uL 12/26/2021 3:56 AM [facility] ABS. LYMPHOCYTES 3.11 1.00 - 4.80 x10'3/uL 12/26/2021 3:56 AM [facility] ABS. MONOCYTES 0.60 0.24 - 0.86 x10'3/uL 12/26/2021 3:56 AM [facility] ABS. EOSINOPHILS 0.19 0.04 - 0.36 x10'3/uL 12/26/2021 3:56 AM [facility] ABS. BASOPHILS 0.05 0.01 - 0.08 x10'3/uL 12/26/2021 3:56 AM [facility] ABS. IMMATURE GRANULOCYTES 0.04 0.00 - 0.49 x10'3/uL 12/26/2021 3:56 AM [facility] 12/26/2021 3:49 AM BREAD PACKER us Roxana Angelique BradleyGeraldine APNP LABORATORY Final Res ult [facility] [address] [place] [address], [place] [phone] * (ABNORMAL) COMPREHENSIVE METABOLIC PANEL (12/26/2021 3:49 AM BREAD PACKER) GLUCOSE 89 70 - 99 MG/DL 12/26/2021 4:18 AM [facility] BUN 26(H) 7 - 18 MG/DL 12/26/2021 4:18 AM [facility] CREATININE S/P/B 1.08(H) 0.55 - 1.02 MG/DL 12/26/2021 4:18 AM [facility] SODIUM S/P/B 138 136 - 145 MMOL/L 12/26/2021 4:18 AM [facility] POTASSIUM S/P/B 4.3 3.5 - 5.1 MMOL/L 12/26/2021 4:18 AM [facility] CHLORIDE S/P/B 108 100 - 108 MMOL/L 12/26/2021 4:18 AM [facility] CO2 24.8 21 - 32 MMOL/L 12/26/2021 4:18 AM [facility] CALCIUM S/P/B 9.1 8.5 - 10.1 MG/DL 12/26/2021 4:18 AM [facility] BILIRUBIN TOTAL S/P/B 0.2 0.2 - 1.2 MG/DL 12/26/2021 4:18 AM [facility] Comment: THIS ASSAY IS NOT RECOMMENDED FOR PATIENTS UNDERGOING TREATMENT WITH ELTROMBOPAG DUE TO THE POTENTIAL FOR FALSELY ELEVATED RESULTS. TOTAL PROTEIN S/P/B 7.9 6.4 - 8.2 G/DL 12/26/2021 4:18 AM [facility] ALBUMIN S/P/B 2.9(L) 3.4 - 5.0 G/DL 12/26/2021 4:18 AM [facility] AST 44(H) 15 - 37 U/L 12/26/2021 4:18 AM [facility] ALT 82(H) 14 - 55 U/L 12/26/2021 4:18 AM [facility] ALKALINE PHOSPHATASE S/P/B 169(H) 50 - 136 U/L 12/26/2021 4:18 AM [facility] ANION GAP 5.2 5 - 15 MMOL/L 12/26/2021 4:18 AM [facility] BUN CREATININE RATIO 24.1 6 - 26 12/26/2021 4:18 AM [facility] A/G RATIO 0.6(L) 1.0 - 2.0 RATIO 12/26/2021 4:18 AM [facility] GFR ESTIMATE 63(L) >90 ML/MIN/1.7 3 M2 12/26/2021 4:18 AM [facility] Comment: NOTE: eGFR is not calculated for patients <18 years of age. This is an estimated GFR calculation using the new CKD EPI creatinine equation without race and so does not require a correction factor for race. This estimated GFR should not be used for calculating drug doses. 12/26/2021 3:49 AM BREAD PACKER Roxana HUGHES LABORATORY Final Res ult Performing Organization Address City/[facility]/ZIP Co de Phone Number [facility] [address] [place] [address], [place] [phone] * (ABNORMAL) POCT glucose (12/25/2021 8:37 PM BREAD PACKER) GLUCOSE POC 204(H) 70 - 99 mg/dL 12/25/2021 8:40 PM BREAD PACKER [facility] 12/25/2021 8:37 PM BREAD PACKER us Roxana Merino Geraldine HUGHES POCT ORDERABLES - DEVICE Final Result Performing Organization Address [facility] Co de Phone Number [facility] [address] [place] [phone], * CULTURE STREP A (12/25/2021 5:15 PM BREAD PACKER) SPEC DESCRIPTION THROAT 12/25/2021 3:17 PM BREAD PACKER [facility] SPECIAL REQUESTS NO SPECIAL REQUEST 12/25/2021 3:17 PM BREAD PACKER [facility] CULTURE RESULT NO STREPTOCOCCUS PYOGENES (GROUP A) ISOLATED 12/28/2021 7:00 AM BREAD PACKER [facility] THROAT SWAB / Unknown 12/25/2021 5:15 PM BREAD PACKER 12/25/2021 5:29 PM BREAD PACKER us Schmidt Angelique HUGHES MICROBIOLOGY - GENERAL OR DERABLES Final Result Performing Organization Address City/[facility]/ZIP Co de Phone Number [facility] [address] [place] [address], [place] [phone] * (ABNORMAL) POCT glucose (12/25/2021 3:09 PM BREAD PACKER) GLUCOSE POC 287(H) 70 - 99 mg/dL 12/25/2021 3:31 PM BREAD PACKER [facility] 12/25/2021 3:09 PM BREAD PACKER Roxana Chandler APNP POCT ORDERABLES - DEVICE Final Result [facility] [address] [place] [address], * XR ABD KUB (12/25/2021 12:55 PM BREAD PACKER) Anatomical Region Laterality Modality Abdomen Radiographic Shelli ging 12/25/2021 1:17 PM BREAD PACKER Impressions 12/25/2021 1:26 PM BREAD PACKER IMPRESSION: Nonobstructive bowel gas pattern. Referred By: ?? Interpreted By: Angelito Tidwell MD, 12/25/2021 1:17 PM Narrative 12/25/2021 1:26 PM BREAD PACKER IMAGING STUDIES: ??XR ABD KUB ? DATE: [...] * (ABNORMAL) POCT glucose (12/25/2021 11:57 AM BREAD PACKER) GLUCOSE POC 176(H) 70 - 99 mg/dL 12/25/2021 12:01 PM BREAD PACKER [facility] 12/25/2021 11:5 7 AM BREAD PACKER Roxana Bradleyjohn ELLEN POCT ORDERABLES - DEVICE Final Result Performing Organization Address City/[facility] Co de Phone Number [facility] [address] [place] [address], [place] [phone] * (ABNORMAL) POCT glucose (12/25/2021 7:25 AM BREAD PACKER) GLUCOSE POC 139(H) 70 - 99 mg/dL 12/25/2021 6:27 AM BREAD PACKER [facility] 12/25/2021 7:25 AM BREAD PACKER Roxana Bradleyxavier HUGHES POCT ORDERABLES - DEVICE Final Result Performing Organization Address [facility] de Phone Number [facility] [address] [place] [address], [place] [phone] * (ABNORMAL) CBC W/DIFF AUTOMATED (12/25/2021 3:42 AM BREAD PACKER) WBC 9.3 4.5 - 11.0 x10'3/uL 12/25/2021 3:53 AM BREAD P[employer]ER [facility] RBC 3.40(L) 4.20 - 5.40 x10'6/uL 12/25/2021 3:53 AM BREAD P[employer]ER [facility] HGB 10.2(L) 12.0 - 16.0 G/DL 12/25/2021 3:53 AM [facility] HCT 30.4(L) 38.0 - 48.0 % 12/25/2021 3:53 AM BREAD PACKER [facility] MCV 89.4 81.0 - 99.0 FL 12/25/2021 3:53 AM [facility] MCH 30.0 27.0 - 31.0 PG 12/25/2021 3:53 AM [facility] MCHC 33.6 32.0 - 36.0 G/DL 12/25/2021 3:53 AM [facility] RDW 12.8 11.5 - 14.5 % 12/25/2021 3:53 AM [facility] PLT 244 130 - 400 x10'3/uL 12/25/2021 3:53 AM [facility] MPV 11.1 9.3 - 12.2 FL 12/25/2021 3:53 AM [facility] DIFFERENTIAL TYPE AUTOMATED DIFFERENTIAL 12/25/2021 3:53 AM [facility] NEUTROPHILS % 55.9 % 12/25/2021 3:53 AM [facility] LYMPHOCYTES % 35.8 % 12/25/2021 3:53 AM [facility] MONOCYTES % 5.7 % 12/25/2021 3:53 AM [facility] EOSINOPHILS 1.9 % 12/25/2021 3:53 AM [facility] BASOPHILS 0.4 % 12/25/2021 3:53 AM [facility] IMMATURE GRANS % 0.3 % 12/26/19 3:53 AM [facility] ABS. NEUTROPHILS TOTAL 5.19 1.80 - 7.70 x10'3/uL 12/25/2021 3:53 AM [facility] ABS. LYMPHOCYTES 3.33 1.00 - 4.80 x10'3/uL 12/25/2021 3:53 AM [facility] ABS. MONOCYTES 0.53 0.24 - 0.86 x10'3/uL 12/25/2021 3:53 AM BREAD PACKER [facility] ABS. EOSINOPHILS 0.18 0.04 - 0.36 x10'3/uL 12/25/2021 3:53 AM [facility]ER [facility] ABS. BASOPHILS 0.04 0.01 - 0.08 x10'3/uL 12/25/2021 3:53 AM [facility]ER [facility] ABS. IMMATURE GRANULOCYTES 0.03 0.00 - 0.49 x10'3/uL 12/25/2021 3:53 AM [facility] 12/25/2021 3:42 AM B[employer] P[facility]ER Roxana Chandler APNP LABORATORY Final Res ult [facility] [address] [place] [address], * (ABNORMAL) COMPREHENSIVE METABOLIC PANEL (12/25/2021 3:42 AM BREAD PACKER) GLUCOSE 142(H) 70 - 99 MG/DL 12/25/2021 4:24 AM [facility]ER [facility] BUN 27(H) 7 - 18 MG/DL 12/25/2021 4:24 AM [facility] CREATININE S/P/B 1.02 0.55 - 1.02 MG/DL 12/25/2021 4:24 AM [facility] SODIUM S/P/B 138 136 - 145 MMOL/L 12/25/2021 4:24 AM [facility] POTASSIUM S/P/B 4.2 3.5 - 5.1 MMOL/L 12/25/2021 4:24 AM [facility] CHLORIDE S/P/B 107 100 - 108 MMOL/L 12/25/2021 4:24 AM [facility] CO2 25.3 21 - 32 MMOL/L 12/25/2021 4:24 AM [facility] CALCIUM S/P/B 9.2 8.5 - 10.1 MG/DL 12/25/2021 4:24 AM [facility] BILIRUBIN TOTAL S/P/B 0.2 0.2 - 1.2 MG/DL 12/25/2021 4:24 AM [facility] Comment: THIS ASSAY IS NOT RECOMMENDED FOR PATIENTS UNDERGOING TREATMENT WITH ELTROMBOPAG DUE TO THE POTENTIAL FOR FALSELY ELEVATED RESULTS. TOTAL PROTEIN S/P/B 7.8 6.4 - 8.2 G/DL 12/25/2021 4:24 AM [facility] ALBUMIN S/P/B 2.8(L) 3.4 - 5.0 G/DL 12/25/2021 4:24 AM [facility] AST 38(H) 15 - 37 U/L 12/25/2021 4:24 AM [facility] ALT 80(H) 14 - 55 U/L 12/25/2021 4:24 AM [facility] ALKALINE PHOSPHATASE S/P/B 184(H) 50 - 136 U/L 12/25/2021 4:24 AM [facility] ANION GAP 5.7 5 - 15 MMOL/L 12/25/2021 4:24 AM [facility] BUN CREATININE RATIO 26.5(H) 6 - 26 12/25/2021 4:24 AM [facility] A/G RATIO 0.6(L) 1.0 - 2.0 RATIO 12/25/2021 4:24 AM [facility] GFR ESTIMATE 67(L) >90 ML/MIN/1.7 3 M2 12/25/2021 4:24 AM [facility] Comment: NOTE: eGFR is not calculated for patients <18 years of age. This is an estimated GFR calculation using the new CKD EPI creatinine equation without race and so does not require a correction factor for race. This estimated GFR should not be used for calculating drug doses. 12/25/2021 3:42 AM BREAD PACKER Roxana HUGHES LABORATORY Final Res ult Performing Organization Address City/[facility]/ZIP Co de Phone Number [facility] [address] [place] [address], [place] [phone] * CK (CPK) - Weekly starting tomorrow (12/25/2021 3:42 AM BREAD PACKER) CPK 71 21 - 215 U/L 12/25/2021 4:24 AM [facility] [facility]ER [facility] 12/25/2021 3:42 AM BREAD PACKER Ezio Bethea DO LABORATORY Final Result Performing Organization Address [facility] Co de Phone Number [facility] [address] [place] [address], [place] [phone] * (ABNORMAL) POCT glucose (12/24/2021 10:11 PM CDT) GLUCOSE POC 196(H) 70 - 99 mg/dL 12/25/2021 6:27 AM B[employer]ER [facility] 12/24/2021 10:1 1 PM CDT Roxana HUGHES POCT ORDERABLES - DEVICE Final Result Performing Organization Address City/[facility] Co de Phone Number [facility] [address] [place] [address], [place] [phone] * (ABNORMAL) POCT glucose (12/24/2021 5:35 PM CDT) GLUCOSE POC 233(H) 70 - 99 mg/dL 12/24/2021 5:48 PM CDT [facility] 12/24/2021 5:35 PM CDT Roxana Chandler ELLEN POCT ORDERABLES - DEVICE Final Result [facility] [address] [place] [address], [place] [phone] * (ABNORMAL) POCT glucose (12/24/2021 11:46 AM CDT) GLUCOSE POC 239(H) 70 - 99 mg/dL 12/24/2021 11:59 AM CDT [facility] 12/24/2021 11:4 6 AM CDT Roxana BROOKESUSAN POCT ORDERABLES - DEVICE Final Result Performing Organization Address City/[facility]/ZIP Co de Phone Number [facility] [address] [place] [address], [place] [phone] * (ABNORMAL) POCT glucose (12/24/2021 6:29 AM CDT) GLUCOSE POC 189(H) 70 - 99 mg/dL 12/24/2021 6:34 AM CDT [facility] 12/24/2021 6:29 AM CDT us Roxana Chandler APSUSAN POCT ORDERABLES - DEVICE Final Result [facility] [address] [place] [address], [place] [phone] * (ABNORMAL) CBC W/DIFF AUTOMATED (12/24/2021 3:45 AM CDT) [facility] WBC 7.4 4.5 - 11.0 x10'3/uL 12/24/2021 4:07 AM CDT [facility] RBC 3.43(L) 4.20 - 5.40 x10'6/uL 12/24/2021 4:07 AM CDT [facility] HGB 10.3(L) 12.0 - 16.0 G/DL 12/24/2021 4:07 AM CDT [facility] HCT 30.9(L) 38.0 - 48.0 % 12/24/2021 4:07 AM CDT [facility] MCV 90.1 81.0 - 99.0 FL 12/24/2021 4:07 AM CDT [facility] MCH 30.0 27.0 - 31.0 PG 12/24/2021 4:07 AM CDT [facility] MCHC 33.3 32.0 - 36.0 G/DL 12/24/2021 4:07 AM CDT [facility] RDW 12.8 11.5 - 14.5 % 12/24/2021 4:07 AM CDT [facility] PLT 247 130 - 400 x10'3/uL 12/24/2021 4:07 AM CDT [facility] MPV 11.1 9.3 - 12.2 FL 12/24/2021 4:07 AM CDT [facility] DIFFERENTIAL TYPE AUTOMATED DIFFERENTIAL 12/24/2021 4:07 AM CDT [facility] NEUTROPHILS % 58.0 % 12/24/2021 4:07 AM CDT [facility] LYMPHOCYTES % 33.6 % 12/24/2021 4:07 AM CDT [facility] MONOCYTES % 5.6 % 12/24/2021 4:07 AM CDT [facility] EOSINOPHILS 2.0 % 12/24/2021 4:07 AM CDT [facility] BASOPHILS 0.5 % 12/24/2021 4:07 AM CDT [facility] IMMATURE GRANS % 0.3 % 12/25/19 4:07 AM CDT [facility] ABS. NEUTROPHILS TOTAL 4.26 1.80 - 7.70 x10'3/uL 12/24/2021 4:07 AM CDT [facility] ABS. LYMPHOCYTES 2.47 1.00 - 4.80 x10'3/uL 12/24/2021 4:07 AM CDT [facility] ABS. MONOCYTES 0.41 0.24 - 0.86 x10'3/uL 12/24/2021 4:07 AM CDT [facility] ABS. EOSINOPHILS 0.15 0.04 - 0.36 x10'3/uL 12/24/2021 4:07 AM CDT [facility] ABS. BASOPHILS 0.04 0.01 - 0.08 x10'3/uL 12/24/2021 4:07 AM CDT [facility] ABS. IMMATURE GRANULOCYTES 0.02 0.00 - 0.49 x10'3/uL 12/24/2021 4:07 AM CDT [facility] 12/24/2021 3:45 AM CDT us Roxana Chandler APNP LABORATORY Final Res ult [facility] [address] [place] [address], * (ABNORMAL) BASIC METABOLIC PANEL (12/24/2021 3:45 AM CDT) [facility] GLUCOSE 175(H) 70 - 99 MG/DL 12/24/2021 4:26 AM CDT [facility] BUN 23(H) 7 - 18 MG/DL 12/24/2021 4:26 AM CDT [facility] CREATININE S/P/B 1.05(H) 0.55 - 1.02 MG/DL 12/24/2021 4:26 AM T [facility] SODIUM S/P/B 137 136 - 145 MMOL/L 12/24/2021 4:26 AM T [facility] POTASSIUM S/P/B 4.7 3.5 - 5.1 MMOL/L 12/24/2021 4:26 AM T [facility] CHLORIDE S/P/B 107 100 - 108 MMOL/L 12/24/2021 4:26 AM T [facility] CO2 25.2 21 - 32 MMOL/L 12/24/2021 4:26 AM T [facility] CALCIUM S/P/B 8.7 8.5 - 10.1 MG/DL 12/24/2021 4:26 AM T [facility] ANION GAP 4.8(L) 5 - 15 MMOL/L 12/24/2021 4:26 AM T [facility] BUN CREATININE RATIO 21.9 6 - 26 12/24/2021 4:26 AM T [facility] GFR ESTIMATE 65(L) >90 ML/MIN/1.7 3 M2 12/24/2021 4:26 AM T [facility] Comment: NOTE: eGFR is [...] LABORATORY Final Res ult Performing Organization Address [facility] Co de Phone Number [facility] [address] [place] [address], [place] [phone] * (ABNORMAL) POCT glucose (12/23/2021 7:54 PM CDT) GLUCOSE POC 259(H) 70 - 99 mg/dL 12/23/2021 8:05 PM CDT [facility] 12/23/2021 7:54 PM CDT us Roxana Chandler ELLEN POCT ORDERABLES - DEVICE Final Result Performing Organization Address [facility] Co de Phone Number [facility] [address] [place] [address], [place] [phone] * (ABNORMAL) POCT glucose (12/23/2021 5:17 PM CDT) GLUCOSE POC 218(H) 70 - 99 mg/dL 12/23/2021 6:01 PM CDT [facility] 12/23/2021 5:17 PM CDT us Roxana Chandler ELLEN POCT ORDERABLES - DEVICE Final Result Performing Organization Address City/[facility] Co de Phone Number [facility] [address] [place] [address], [place] [phone] * XR CHEST PORTABLE (12/23/2021 12:03 PM [...] - 99 mg/dL 12/23/2021 12:19 PM CDT [facility] 12/23/2021 12:0 3 PM CDT Roxana Merino Geraldine ELLEN POCT ORDERABLES - DEVICE Final Result Performing Organization Address [facility] Co de Phone Number [facility] [address] [place] [address], [place] [phone] * (ABNORMAL) POCT glucose (12/23/2021 6:25 AM CDT) GLUCOSE POC 234(H) 70 - 99 mg/dL 12/23/2021 6:27 AM CDT [facility] 12/23/2021 6:25 AM CDT Roxana Bradleyxavier HUGHES POCT ORDERABLES - DEVICE Final Result Performing Organization Address City/[facility]/ZIP Co de Phone Number [facility] [address] [place] [address], [place] [phone] * (ABNORMAL) CBC W/DIFF AUTOMATED (12/23/2021 3:55 AM CDT) WBC 8.2 4.5 - 11.0 x10'3/uL 12/23/2021 4:16 AM CDT [facility] RBC 3.45(L) 4.20 - 5.40 x10'6/uL 12/23/2021 4:16 AM CDT [facility] HGB 10.3(L) 12.0 - 16.0 G/DL 12/23/2021 4:16 AM CDT [facility] HCT 31.4(L) 38.0 - 48.0 % 12/23/2021 4:16 AM CDT [facility] MCV 91.0 81.0 - 99.0 FL 12/23/2021 4:16 AM CDT [facility] MCH 29.9 27.0 - 31.0 PG 12/23/2021 4:16 AM CDT [facility] MCHC 32.8 32.0 - 36.0 G/DL 12/23/2021 4:16 AM CDT [facility] RDW 12.8 11.5 - 14.5 % 12/23/2021 4:16 AM CDT [facility] PLT 259 130 - 400 x10'3/uL 12/23/2021 4:16 AM CDT [facility] MPV 11.1 9.3 - 12.2 FL 12/23/2021 4:16 AM CDT [facility] DIFFERENTIAL TYPE AUTOMATED DIFFERENTIAL 12/23/2021 4:16 AM CDT [facility] NEUTROPHILS % 70.5 % 12/23/2021 4:16 AM CDT [facility] LYMPHOCYTES % 22.0 % 12/23/2021 4:16 AM CDT [facility] MONOCYTES % 5.5 % 12/23/2021 4:16 AM CDT [facility] EOSINOPHILS 1.0 % 12/23/2021 4:16 AM CDT [facility] BASOPHILS 0.6 % 12/23/2021 4:16 AM CDT [facility] IMMATURE GRANS % 0.4 % 12/24/19 4:16 AM CDT [facility] ABS. NEUTROPHILS TOTAL 5.80 1.80 - 7.70 x10'3/uL 12/23/2021 4:16 AM CDT [facility] ABS. LYMPHOCYTES 1.81 1.00 - 4.80 x10'3/uL 12/23/2021 4:16 AM CDT [facility] ABS. MONOCYTES 0.45 0.24 - 0.86 x10'3/uL 12/23/2021 4:16 AM CDT [facility] ABS. EOSINOPHILS 0.08 0.04 - 0.36 x10'3/uL 12/23/2021 4:16 AM CDT [facility] ABS. BASOPHILS 0.05 0.01 - 0.08 x10'3/uL 12/23/2021 4:16 AM CDT [facility] ABS. IMMATURE GRANULOCYTES 0.03 0.00 - 0.49 x10'3/uL 12/23/2021 4:16 AM CDT [facility] 12/23/2021 3:55 AM CDT Roxana Chandler APNP LABORATORY Final Res ult [facility] [address] [place] [address], [place] [phone] * (ABNORMAL) BASIC METABOLIC PANEL (12/23/2021 3:55 AM CDT) GLUCOSE 251(H) 70 - 99 MG/DL 12/23/2021 4:43 AM CDT [facility] BUN 28(H) 7 - 18 MG/DL 12/23/2021 4:43 AM CDT [facility] CREATININE S/P/B 1.11(H) 0.55 - 1.02 MG/DL 12/23/2021 4:43 AM CDT [facility] SODIUM S/P/B 135(L) 136 - 145 MMOL/L 12/23/2021 4:43 AM CDT [facility] POTASSIUM S/P/B 5.6(H) 3.5 - 5.1 MMOL/L 12/23/2021 4:43 AM CDT [facility] CHLORIDE S/P/B 106 100 - 108 MMOL/L 12/23/2021 4:43 AM CDT [facility] CO2 23.6 21 - 32 MMOL/L 12/23/2021 4:43 AM CDT [facility] CALCIUM S/P/B 8.8 8.5 - 10.1 MG/DL 12/23/2021 4:43 AM CDT [facility] ANION GAP 5.4 5 - 15 MMOL/L 12/23/2021 4:43 AM CDT [facility] BUN CREATININE RATIO 25.2 6 - 26 12/23/2021 4:43 AM T [facility] GFR ESTIMATE 61(L) >90 ML/MIN/1.7 3 M2 12/23/2021 4:43 AM T [facility] Comment: NOTE: eGFR is not calculated for patients <18 years of age. This is an estimated GFR calculation using the new CKD EPI creatinine equation without race and so does not require a correction factor for race. This estimated GFR should not be used for calculating drug doses. 12/23/2021 3:55 AM CDT us Roxana HUGHES LABORATORY Final Res ult [facility] [address] [place] [address], [place] [phone] * (ABNORMAL) POCT glucose (12/22/2021 9:01 PM CDT) GLUCOSE POC 246(H) 70 - 99 mg/dL 12/22/2021 9:04 PM CDT [facility] 12/22/2021 9:01 PM CDT us Roxana Chandler APNP POCT ORDERABLES - DEVICE Final Result [facility] [address] [place] [address], * (ABNORMAL) POCT glucose (12/22/2021 5:07 PM CDT) GLUCOSE POC 256(H) 70 - 99 mg/dL 12/22/2021 5:27 PM CDT [facility] 12/22/2021 5:07 PM CDT us Roxana Chandler ELLEN POCT ORDERABLES - DEVICE Final Result Performing Organization Address City/[facility]/ZIP Co de Phone Number [facility] [address] [place] [address], * (ABNORMAL) POCT glucose (12/22/2021 11:11 AM CDT) GLUCOSE POC 242(H) 70 - 99 mg/dL 12/22/2021 11:19 AM CDT [facility] 12/22/2021 11:1 1 AM CDT us Roxana Chandler APSUSAN POCT ORDERABLES - DEVICE Final Result [facility] [address] [place] [address], [place] [phone] * (ABNORMAL) POCT glucose (12/22/2021 7:37 AM CDT) GLUCOSE POC 188(H) 70 - 99 mg/dL 12/22/2021 7:44 AM CDT [facility] 12/22/2021 7:37 AM CDT Roxana Angelique Chandler APNP POCT ORDERABLES - DEVICE Final Result [facility] [address] [place] [address], [place] [phone] * CULTURE, ANAEROBIC (12/22/2021 7:15 AM CDT) SPEC DESCRIPTION TOE,RIGHT 12/22/2021 7:46 AM CDT [facility] SPECIAL REQUESTS NO SPECIAL REQUEST 12/22/2021 7:46 AM CDT [facility] GRAM STAIN RESULT NO WHITE BLOOD CELLS SEEN 12/22/2021 12:06 PM CDT [facility] GRAM STAIN RESULT RARE EPITHELIAL CELLS SEEN 12/22/2021 12:06 PM CDT [facility] GRAM STAIN RESULT NO ORGANISMS SEEN 12/22/2021 12:06 PM CDT [facility] CULTURE RESULT NO GROWTH 5 DAYS 12/27/2021 11:46 AM BREAD PACKER [facility] CULTURE RESULT NOTE: ANAEROBIC CULTURES ARE ROUTINELY SCREENED FOR BOTH AEROBIC AND ANAEROBIC ORGANISMS. 12/27/2021 11:46 AM BREAD PACKER [facility] WOUND STRUCTURE OF TOE OF RIGHT FOOT / Unknown 12/22/2021 7:44 AM CDT Hubert Cheek DPM MICROBIOLOGY - GENERAL OR DERABLES Final Result [facility] [address] [place] [address], [place] [phone] * CULTURE, ANAEROBIC (12/22/2021 7:14 AM CDT) SPEC DESCRIPTION TOE,RIGHT 12/22/2021 7:46 AM CDT [facility] SPECIAL REQUESTS NO SPECIAL REQUEST 12/22/2021 7:46 AM CDT [facility] GRAM STAIN RESULT NO WHITE BLOOD CELLS SEEN 12/22/2021 12:05 PM CDT [facility] GRAM STAIN RESULT RARE EPITHELIAL CELLS SEEN 12/22/2021 12:05 PM CDT [facility] GRAM STAIN RESULT RARE RED BLOOD CELLS SEEN 12/22/2021 12:05 PM CDT [facility] GRAM STAIN RESULT NO ORGANISMS SEEN 12/22/2021 12:05 PM CDT [facility] CULTURE RESULT NO GROWTH 5 DAYS 12/27/2021 11:46 AM B[employer] PACKER [facility] CULTURE RESULT NOTE: ANAEROBIC CULTURES ARE ROUTINELY SCREENED FOR BOTH AEROBIC AND ANAEROBIC ORGANISMS. 12/27/2021 11:46 AM [facility] WOUND STRUCTURE OF TOE OF RIGHT FOOT / Unknown 12/22/2021 7:44 AM CDT Hubert Cheek DPRonnie MICROBIOLOGY - GENERAL OR DERABLES Final Result [facility] [address] [place] [address], [place] [phone] * (ABNORMAL) BASIC METABOLIC PANEL (12/22/2021 5:52 AM CDT) [facility] GLUCOSE 170(H) 70 - 99 MG/DL 12/22/2021 6:28 AM [facility] BUN 33(H) 7 - 18 MG/DL 12/22/2021 6:28 AM [facility] CREATININE S/P/B 1.29(H) 0.55 - 1.02 MG/DL 12/22/2021 6:28 AM T [facility] SODIUM S/P/B 136 136 - 145 MMOL/L 12/22/2021 6:28 AM [facility] POTASSIUM S/P/B 4.6 3.5 - 5.1 MMOL/L 12/22/2021 6:28 AM [facility] CHLORIDE S/P/B 105 100 - 108 MMOL/L 12/22/2021 6:28 AM [facility] CO2 25.9 21 - 32 MMOL/L 12/22/2021 6:28 AM [facility] CALCIUM S/P/B 9.5 8.5 - 10.1 MG/DL 12/22/2021 6:28 AM [facility] ANION GAP 5.1 5 - 15 MMOL/L 12/22/2021 6:28 AM [facility] BUN CREATININE RATIO 25.6 6 - 26 12/22/2021 6:28 AM [facility] GFR ESTIMATE 51(L) >90 ML/MIN/1.7 3 M2 12/22/2021 6:28 AM [facility] Comment: NOTE: eGFR is not calculated for patients <18 years of age. This is an estimated GFR calculation using the new CKD EPI creatinine equation without race and so does not require a correction factor for race. This estimated GFR should not be used for calculating drug doses. 12/22/2021 5:52 AM CDT Eduardo Mitchell Anastasiyaritu ANIMAL GENETICIST LABORATORY Final Result [facility] [address] [place] [address], [place] [phone] * (ABNORMAL) CBC W/DIFF AUTOMATED (12/22/2021 5:52 AM CDT) [facility] WBC 8.6 4.5 - 11.0 x10'3/uL 12/22/2021 6:07 AM CDT [facility] RBC 4.01(L) 4.20 - 5.40 x10'6/uL 12/22/2021 6:07 AM CDT [facility] HGB 12.1 12.0 - 16.0 G/DL 12/22/2021 6:07 AM CDT [facility] HCT 36.2(L) 38.0 - 48.0 % 12/22/2021 6:07 AM CDT [facility] MCV 90.3 81.0 - 99.0 FL 12/22/2021 6:07 AM CDT [facility] MCH 30.2 27.0 - 31.0 PG 12/22/2021 6:07 AM CDT [facility] MCHC 33.4 32.0 - 36.0 G/DL 12/22/2021 6:07 AM CDT [facility] RDW 12.7 11.5 - 14.5 % 12/22/2021 6:07 AM CDT [facility] PLT 321 130 - 400 x10'3/uL 12/22/2021 6:07 AM CDT [facility] MPV 10.9 9.3 - 12.2 FL 12/22/2021 6:07 AM CDT [facility] DIFFERENTIAL TYPE AUTOMATED DIFFERENTIAL 12/22/2021 6:07 AM CDT [facility] NEUTROPHILS % 46.7 % 12/22/2021 6:07 AM CDT [facility] LYMPHOCYTES % 46.8 % 12/22/2021 6:07 AM CDT [facility] MONOCYTES % 4.4 % 12/22/2021 6:07 AM CDT [facility] EOSINOPHILS 1.2 % 12/22/2021 6:07 AM CDT [facility] BASOPHILS 0.7 % 12/22/2021 6:07 AM CDT [facility] IMMATURE GRANS % 0.2 % 12/23/19 6:07 AM CDT [facility] ABS. NEUTROPHILS TOTAL 4.00 1.80 - 7.70 x10'3/uL 12/22/2021 6:07 AM CDT [facility] ABS. LYMPHOCYTES 4.01 1.00 - 4.80 x10'3/uL 12/22/2021 6:07 AM CDT [facility] ABS. MONOCYTES 0.38 0.24 - 0.86 x10'3/uL 12/22/2021 6:07 AM CDT [facility] ABS. EOSINOPHILS 0.10 0.04 - 0.36 x10'3/uL 12/22/2021 6:07 AM CDT [facility] ABS. BASOPHILS 0.06 0.01 - 0.08 x10'3/uL 12/22/2021 6:07 AM CDT [facility] ABS. IMMATURE GRANULOCYTES 0.02 0.00 - 0.49 x10'3/uL 12/22/2021 6:07 AM T [facility] 12/22/2021 5:52 AM CDT us Eduardo Aguillon ANIMAL GENETICIST LABORATORY Final Result [facility] [address] [place] [address], * CORONAVIRUS (COVID-19) ANTIGEN (In-house [place]) (12/22/2021 5:46 AM CDT) CORONAVIRUS ANTIGEN IA NEGATIVE NEGATIVE 12/22/2021 6:31 AM CDT [facility] Comment: NEGATIVE RESULTS SHOULD BE [...] SPECIMEN TYPE NASAL 12/22/2021 5:47 AM CDT [facility] FIRST TEST NO 12/22/2021 5:47 AM CDT [facility] EMPLOYED IN HEALTHCARE NO 12/22/2021 5:47 AM CDT [facility] SYMPTOMATIC DEFINED BY CDC NO 12/22/2021 5:47 AM CDT [facility] HOSPITALIZATION STATUS YES 12/22/2021 5:47 AM CDT [facility] PATIENT IN ICU NO 12/22/2021 5:47 AM CDT [facility] RESIDENT OF [facility] NO 12/22/2021 5:47 AM CDT [facility] NOT 12/22/2021 5:47 AM CDT [facility] NASAL NASAL STRUCTURE / Unknown 12/22/2021 5:46 AM CDT Roxana Merino Geraldine HUGHES MICROBIOLOGY - GENERAL OR DERABLES Final Result Performing Organization Address [facility] Co de Phone Number [facility] [address] [place] [address], * (ABNORMAL) POCT glucose (12/22/2021 5:01 AM CDT) GLUCOSE POC 153(H) 70 - 99 mg/dL 12/22/2021 5:45 AM CDT [facility] 12/22/2021 5:01 AM CDT Roxana Merino Geraldine HUGHES POCT ORDERABLES - DEVICE Final Result Performing Organization Address [facility] de Phone Number [facility] [address] [place] [id number], * Pathology (12/22/2021 12:00 AM CDT) COPATH REPORT ?[facility] ? [address] [facility] ? [place], [place] ??[address] ? [phone] ? Department of Pathology ? Pathology Report ? SURGICAL FINAL REPORT Patient Name: TYSON MCNEAL ? : 1970 (Age: 51) ? Location: [id number] Gender: F ?Collected Date: 12/22/2021 Med Rec #: [id number] ?Date Received: 12/22/2021 Date Reported: 12/23/2021 Provider: DESIREE MACKENZIE MD ?WANDA URBINA MD ?DAVID Merino ?EDUARDO AGUILLON ANIMAL GENETICIST ?ROXANA CHANDLER LOG CHAIN WORKER ?HUBERT CHEEK DPM Specimen(s) A: Bone, biopsy, [...] in toto in cassette B1, following decalcification. :[facility] Billing Fee Code(s): 09803(2), 88171(2) [facility] TISSUE STRUCTURE OF TOE OF RIGHT FOOT / Unknown 12/22/2021 7:14 AM CDT Hubert Cheek DPM PATHOLOGY/CYTOLOGY ORDERA BLES Final Result [facility] [address] [place] [address], * (ABNORMAL) POCT glucose (12/21/2021 8:17 PM CDT) GLUCOSE POC 275(H) 70 - 99 mg/dL 12/21/2021 8:59 PM CDT [facility] 12/21/2021 8:17 PM CDT us Roxana HUGHES POCT ORDERABLES - DEVICE Final Result Performing Organization Address City/[facility] Co de Phone Number [facility] [address] [place] [phone], [place] [phone] * (ABNORMAL) POCT glucose (12/21/2021 4:49 PM CDT) GLUCOSE POC 275(H) 70 - 99 mg/dL 12/21/2021 4:53 PM CDT [facility] 12/21/2021 4:49 PM CDT us Roxana Chandler APSUSAN POCT ORDERABLES - DEVICE Final Result Performing Organization Address City/[facility] Co de Phone Number [facility] [facility] [address] [place] [address], [place] [phone] * (ABNORMAL) POCT glucose (12/21/2021 12:13 PM CDT) GLUCOSE POC 287(H) 70 - 99 mg/dL 12/21/2021 1:13 PM CDT [facility] 12/21/2021 12:1 3 PM CDT us Roxana Chandler APNP POCT ORDERABLES - DEVICE Final Result Performing Organization Address City/[facility]/ZIP Co de Phone Number [facility] [address] [place] [id number], [place] [phone] * (ABNORMAL) BASIC METABOLIC PANEL (12/21/2021 7:42 AM CDT) GLUCOSE 162(H) 70 - 99 MG/DL 12/21/2021 8:22 AM T [facility] BUN 26(H) 7 - 18 MG/DL 12/21/2021 8:22 AM T [facility] CREATININE S/P/B 1.21(H) 0.55 - 1.02 MG/DL 12/21/2021 8:22 AM T [facility] SODIUM S/P/B 138 136 - 145 MMOL/L 12/21/2021 8:22 AM T [facility] POTASSIUM S/P/B 4.7 3.5 - 5.1 MMOL/L 12/21/2021 8:22 AM T [facility] CHLORIDE S/P/B 105 100 - 108 MMOL/L 12/21/2021 8:22 AM T [facility] CO2 28.6 21 - 32 MMOL/L 12/21/2021 8:22 AM T [facility] CALCIUM S/P/B 9.8 8.5 - 10.1 MG/DL 12/21/2021 8:22 AM T [facility] ANION GAP 4.4(L) 5 - 15 MMOL/L 12/21/2021 8:22 AM [facility] BUN CREATININE RATIO 21.5 6 - 26 12/21/2021 8:22 AM T [facility] GFR ESTIMATE 55(L) >90 ML/MIN/1.7 3 M2 12/21/2021 8:22 AM [facility] Comment: NOTE: eGFR is not calculated for patients <18 years of age. This is an estimated GFR calculation using the new CKD EPI creatinine equation without race and so does not require a correction factor for race. This estimated GFR should not be used for calculating drug doses. 12/21/2021 7:42 AM CDT Darah R Dodt ANIMAL GENETICIST LABORATORY Final Result [facility] [address] [place] [address], * (ABNORMAL) CBC W/DIFF AUTOMATED (12/21/2021 7:42 AM CDT) [facility] WBC 7.3 4.5 - 11.0 x10'3/uL 12/21/2021 7:56 AM CDT [facility] RBC 4.08(L) 4.20 - 5.40 x10'6/uL 12/21/2021 7:56 AM CDT [facility] HGB 12.2 12.0 - 16.0 G/DL 12/21/2021 7:56 AM CDT [facility] HCT 37.0(L) 38.0 - 48.0 % 12/21/2021 7:56 AM CDT [facility] MCV 90.7 81.0 - 99.0 FL 12/21/2021 7:56 AM CDT [facility] MCH 29.9 27.0 - 31.0 PG 12/21/2021 7:56 AM CDT [facility] MCHC 33.0 32.0 - 36.0 G/DL 12/21/2021 7:56 AM CDT [facility] RDW 12.9 11.5 - 14.5 % 12/21/2021 7:56 AM CDT [facility] PLT 293 130 - 400 x10'3/uL 12/21/2021 7:56 AM CDT [facility] MPV 10.7 9.3 - 12.2 FL 12/21/2021 7:56 AM CDT [facility] DIFFERENTIAL TYPE AUTOMATED DIFFERENTIAL 12/21/2021 7:56 AM CDT [facility] NEUTROPHILS % 55.5 % 12/21/2021 7:56 AM CDT [facility] LYMPHOCYTES % 36.5 % 12/21/2021 7:56 AM CDT [facility] MONOCYTES % 5.5 % 12/21/2021 7:56 AM CDT [facility] EOSINOPHILS 1.5 % 12/21/2021 7:56 AM CDT [facility] BASOPHILS 0.7 % 12/21/2021 7:56 AM CDT [facility] IMMATURE GRANS % 0.3 % 12/22/19 7:56 AM CDT [facility] ABS. NEUTROPHILS TOTAL 4.04 1.80 - 7.70 x10'3/uL 12/21/2021 7:56 AM CDT [facility] ABS. LYMPHOCYTES 2.65 1.00 - 4.80 x10'3/uL 12/21/2021 7:56 AM CDT [facility] ABS. MONOCYTES 0.40 0.24 - 0.86 x10'3/uL 12/21/2021 7:56 AM CDT [facility] ABS. EOSINOPHILS 0.11 0.04 - 0.36 x10'3/uL 12/21/2021 7:56 AM CDT [facility] ABS. BASOPHILS 0.05 0.01 - 0.08 x10'3/uL 12/21/2021 7:56 AM CDT [facility] ABS. IMMATURE GRANULOCYTES 0.02 0.00 - 0.49 x10'3/uL 12/21/2021 7:56 AM CDT [facility] 12/21/2021 7:42 AM CDT Eduardo Aguillon ANIMAL GENETICIST LABORATORY Final Result [facility] [address] [place] [address], * Vancomycin Random Level (12/21/2021 7:42 AM CDT) VANCOMYCIN RANDOM 23.4 MCG/ML 12/21/2021 8:22 AM CDT [facility] Comment:NO THERAPEUTIC RANGE AVAILABLE VANCOMYCIN UNKNOWN LAST DOSE 12/21/2021 9:04 AM CDT [facility] 12/21/2021 7:42 AM CDT Wanda Mercer ANIMAL GENETICIST LABORATORY Final Resul t Performing Organization Address [facility] Co de Phone Number [facility] [address] [place] [address], * MAGNESIUM (12/21/2021 7:42 AM CDT) MAGNESIUM 2.0 1.8 - 2.4 MG/DL 12/21/2021 8:22 AM CDT [facility] 12/21/2021 7:42 AM CDT Eduardo Aguillon ANIMAL GENETICIST LABORATORY Final Result Performing Organization Address City/[facility]/ZIP Co de Phone Number [facility] [address] [place] [address], * (ABNORMAL) POCT glucose (12/21/2021 6:35 AM CDT) GLUCOSE POC 155(H) 70 - 99 mg/dL 12/21/2021 6:39 AM CDT [facility] 12/21/2021 6:35 AM CDT us Roxana Chandler APNP POCT ORDERABLES - DEVICE Final Result Performing Organization Address City/[facility]/ZIP Co de Phone Number [facility] [address] [place] [id number], [place] [phone] * (ABNORMAL) POCT glucose (12/20/2021 9:23 PM CDT) GLUCOSE POC 231(H) 70 - 99 mg/dL 12/20/2021 9:34 PM CDT [facility] 12/20/2021 9:23 PM CDT us Eduardo Mitchell Oscar ANIMAL GENETICIST POCT ORDERABLES - DEVICE Final Result Performing Organization Address City/[facility] Co de Phone Number [facility] [address] [place] [address], [place] [phone] * MRI FOOT LT WO CON (12/20/2021 [...] Gastelum MD, 12/20/2021 9:10 PM Eduardo Aguillon ANIMAL GENETICIST MRI Final Result * (ABNORMAL) POCT glucose (12/20/2021 4:35 PM CDT) GLUCOSE POC 225(H) 70 - 99 mg/dL 12/20/2021 4:48 PM CDT [facility] 12/20/2021 4:35 PM CDT Eduardo Aguillon ANIMAL GENETICIST POCT ORDERABLES - DEVICE Final Result [facility] [address] [place] [address], [place] [phone] * (ABNORMAL) POCT glucose (12/20/2021 11:37 AM CDT) GLUCOSE POC 233(H) 70 - 99 mg/dL 12/20/2021 11:51 AM CDT [facility] 12/20/2021 11:3 7 AM CDT Eduardo Mitchell Oscar ANIMAL GENETICIST POCT ORDERABLES - DEVICE Final Result [facility] [address] [place] [address], * (ABNORMAL) BASIC METABOLIC PANEL (12/20/2021 9:40 AM CDT) GLUCOSE 182(H) 70 - 99 MG/DL 12/20/2021 10:32 AM CDT [facility] BUN 24(H) 7 - 18 MG/DL 12/20/2021 10:32 AM CDT [facility] CREATININE S/P/B 1.14(H) 0.55 - 1.02 MG/DL 12/20/2021 10:32 AM CDT [facility] SODIUM S/P/B 137 136 - 145 MMOL/L 12/20/2021 10:32 AM CDT [facility] POTASSIUM S/P/B 4.8 3.5 - 5.1 MMOL/L 12/20/2021 10:32 AM CDT [facility] CHLORIDE S/P/B 105 100 - 108 MMOL/L 12/20/2021 10:32 AM CDT [facility] CO2 26.8 21 - 32 MMOL/L 12/20/2021 10:32 AM CDT [facility] CALCIUM S/P/B 9.6 8.5 - 10.1 MG/DL 12/20/2021 10:32 AM CDT [facility] ANION GAP 5.2 5 - 15 MMOL/L 12/20/2021 10:32 AM CDT [facility] BUN CREATININE RATIO 21.1 6 - 26 12/20/2021 10:32 AM CDT [facility] GFR ESTIMATE 59(L) >90 ML/MIN/1.7 3 M2 12/20/2021 10:32 AM CDT [facility] Comment: NOTE: eGFR is not calculated for patients <18 years of age. This is an estimated GFR calculation using the new CKD EPI creatinine equation without race and so does not require a correction factor for race. This estimated GFR should not be used for calculating drug doses. 12/20/2021 9:40 AM CDT Eduardo Aguillon APRN LABORATORY Final Result [facility] [address] [place] [id number], * (ABNORMAL) CBC W/DIFF AUTOMATED (12/20/2021 9:40 AM CDT) WBC 8.3 4.5 - 11.0 x10'3/uL 12/20/2021 10:12 AM CDT [facility] RBC 4.03(L) 4.20 - 5.40 x10'6/uL 12/20/2021 10:12 AM CDT [facility] HGB 12.2 12.0 - 16.0 G/DL 12/20/2021 10:12 AM CDT [facility] HCT 36.4(L) 38.0 - 48.0 % 12/20/2021 10:12 AM CDT [facility] MCV 90.3 81.0 - 99.0 FL 12/20/2021 10:12 AM CDT [facility] MCH 30.3 27.0 - 31.0 PG 12/20/2021 10:12 AM CDT [facility] MCHC 33.5 32.0 - 36.0 G/DL 12/20/2021 10:12 AM CDT [facility] RDW 12.8 11.5 - 14.5 % 12/20/2021 10:12 AM CDT [facility] PLT 319 130 - 400 x10'3/uL 12/20/2021 10:12 AM CDT [facility] MPV 11.1 9.3 - 12.2 FL 12/20/2021 10:12 AM CDT [facility] DIFFERENTIAL TYPE AUTOMATED DIFFERENTIAL 12/20/2021 10:12 AM CDT [facility] NEUTROPHILS % 60.2 % 12/20/2021 10:12 AM CDT [facility] LYMPHOCYTES % 32.6 % 12/20/2021 10:12 AM CDT [facility] MONOCYTES % 5.3 % 12/20/2021 10:12 AM CDT [facility] EOSINOPHILS 1.1 % 12/20/2021 10:12 AM CDT [facility] BASOPHILS 0.6 % 12/20/2021 10:12 AM CDT [facility] IMMATURE GRANS % 0.2 % 12/21/19 10:12 AM CDT [facility] ABS. NEUTROPHILS TOTAL 5.01 1.80 - 7.70 x10'3/uL 12/20/2021 10:12 AM CDT [facility] ABS. LYMPHOCYTES 2.71 1.00 - 4.80 x10'3/uL 12/20/2021 10:12 AM CDT [facility] ABS. MONOCYTES 0.44 0.24 - 0.86 x10'3/uL 12/20/2021 10:12 AM CDT [facility] ABS. EOSINOPHILS 0.09 0.04 - 0.36 x10'3/uL 12/20/2021 10:12 AM CDT [facility] ABS. BASOPHILS 0.05 0.01 - 0.08 x10'3/uL 12/20/2021 10:12 AM CDT [facility] ABS. IMMATURE GRANULOCYTES 0.02 0.00 - 0.49 x10'3/uL 12/20/2021 10:12 AM CDT [facility] 12/20/2021 9:40 AM CDT Eduardo Aguillon APRN LABORATORY Final Result [facility] [address] [place] [phone], * MAGNESIUM (12/20/2021 9:40 AM CDT) MAGNESIUM 2.0 1.8 - 2.4 MG/DL 12/20/2021 10:32 AM CDT [facility] 12/20/2021 9:40 AM CDT Eduardo Aguillon APRN LABORATORY Final Result [facility] [address] [place] [address], [place] [phone] * (ABNORMAL) POCT glucose (12/20/2021 6:28 AM CDT) GLUCOSE POC 200(H) 70 - 99 mg/dL 12/20/2021 6:37 AM CDT [facility] 12/20/2021 6:28 AM CDT us Darah R Dodt ANIMAL GENETICIST POCT ORDERABLES - DEVICE Final Result Performing Organization Address [facility] Co de Phone Number [facility] [address] [place] [address], [place] [phone] * (ABNORMAL) POCT glucose (12/20/2021 2:19 AM CDT) GLUCOSE POC 272(H) 70 - 99 mg/dL 12/20/2021 2:22 AM CDT [facility] 12/20/2021 2:19 AM CDT us Roxana Bradleyxavier HUGHES POCT ORDERABLES - DEVICE Final Result Performing Organization Address [facility] Co de Phone Number [facility] [address] [place] [address], [place] [phone] * (ABNORMAL) POCT glucose (12/19/2021 8:42 PM CDT) GLUCOSE POC 300(H) 70 - 99 mg/dL 12/19/2021 8:45 PM CDT [facility] 12/19/2021 8:42 PM CDT Roxana Bradleyxavier HUGHSE POCT ORDERABLES - DEVICE Final Result Performing Organization Address City/[facility] Co de Phone Number [facility] [address] [place] [address], [place] [phone] * (ABNORMAL) URINALYSIS WI REFLEX TO CULTURE (12/19/2021 4:46 PM CDT) SPECIMEN TYPE URINE CLEAN CATCH 12/19/2021 4:46 PM CDT [facility] COLOR (U) LIGHT YELLOW 12/19/2021 5:03 PM CDT [facility] TRANSPARENCY CLEAR 12/19/2021 5:03 PM CDT [facility] SPECIFIC GRAVITY (U) 1.014 1.001 - 1.030 12/19/2021 5:03 PM CDT [facility] U PH 5.5 5.0 - 9.0 12/19/2021 5:03 PM CDT [facility] LEUKOCYTES (U) NEGATIVE NEGATIVE 12/19/2021 5:03 PM CDT [facility] NITRITES NEGATIVE NEGATIVE 12/19/2021 5:03 PM CDT [facility] PROTEIN (U) NEGATIVE <30 MG/DL 12/19/2021 5:03 PM CDT [facility] URINE GLUCOSE NORMAL NORMAL MG/DL 12/19/2021 5:03 PM T [facility] KETONES MG/DL (U) NEGATIVE NEGATIVE MG/DL 12/19/2021 5:03 PM CDT [facility] UROBILINOGEN NORMAL NORMAL MG/DL 12/19/2021 5:03 PM CDT [facility] BILIRUBIN (U) NEGATIVE NEGATIVE MG/DL 12/19/2021 5:03 PM CDT [facility] BLOOD (U) NEGATIVE NEGATIVE 12/19/2021 5:03 PM T [facility] CULTURE & SENSITIVITY INDICATED? CULTURE IS NOT INDICATED 12/19/2021 5:03 PM CDT [facility] MUCUS RARE /LPF 12/19/2021 5:03 PM CDT [facility] WBC/HPF 1 <6 /HPF 12/19/2021 5:03 PM CDT [facility] RBC/HPF <1 <6 /HPF 12/19/2021 5:03 PM CDT [facility] BACTERIA (U) RARE(A) NONE /HPF 12/19/2021 5:03 PM CDT [facility] SQUAMOUS EPITHELIALS RARE /HPF 12/19/2021 5:03 PM CDT [facility] URINE SPECIMEN OBTAINED BY CLEAN CATCH PROCEDURE / Unknown 12/19/2021 4:46 PM CDT Roxana Chandler ELLEN URINE ORDERABLES Final Re sult [facility] [address] [place] [address], [place] [phone] * (ABNORMAL) POCT glucose (12/19/2021 4:33 PM CDT) GLUCOSE POC 162(H) 70 - 99 mg/dL 12/19/2021 4:34 PM CDT [facility] 12/19/2021 4:33 PM CDT Roxana Bradleyjohn ELLEN POCT ORDERABLES - DEVICE Final Result Performing Organization Address City/[facility]/ZIP Co de Phone Number [facility] [address] [place] [address], [place] [phone] * (ABNORMAL) POCT glucose (12/19/2021 12:38 PM CDT) GLUCOSE POC 202(H) 70 - 99 mg/dL 12/19/2021 12:41 PM CDT [facility] 12/19/2021 12:3 8 PM CDT us Roxana Chandler ELLEN POCT ORDERABLES - DEVICE Final Result Performing Organization Address City/[facility]/ZIP Co de Phone Number [facility] [address] [place] [address], [place] [phone] * (ABNORMAL) COMPREHENSIVE METABOLIC PANEL (12/19/2021 5:30 AM CDT) [facility] GLUCOSE 91 70 - 99 MG/DL 12/19/2021 6:07 AM CDT [facility] BUN 21(H) 7 - 18 MG/DL 12/19/2021 6:07 AM CDT [facility] CREATININE S/P/B 1.02 0.55 - 1.02 MG/DL 12/19/2021 6:07 AM CDT [facility] SODIUM S/P/B 137 136 - 145 MMOL/L 12/19/2021 6:07 AM CDT [facility] POTASSIUM S/P/B 4.5 3.5 - 5.1 MMOL/L 12/19/2021 6:07 AM CDT [facility] CHLORIDE S/P/B 105 100 - 108 MMOL/L 12/19/2021 6:07 AM CDT [facility] CO2 28.8 21 - 32 MMOL/L 12/19/2021 6:07 AM CDT [facility] CALCIUM S/P/B 9.4 8.5 - 10.1 MG/DL 12/19/2021 6:07 AM CDT [facility] BILIRUBIN TOTAL S/P/B 0.3 0.2 - 1.2 MG/DL 12/19/2021 6:07 AM CDT [facility] Comment: THIS ASSAY IS NOT RECOMMENDED FOR PATIENTS UNDERGOING TREATMENT WITH ELTROMBOPAG DUE TO THE POTENTIAL FOR FALSELY ELEVATED RESULTS. TOTAL PROTEIN S/P/B 8.0 6.4 - 8.2 G/DL 12/19/2021 6:07 AM CDT [facility] ALBUMIN S/P/B 2.9(L) 3.4 - 5.0 G/DL 12/19/2021 6:07 AM CDT [facility] AST 16 15 - 37 U/L 12/19/2021 6:07 AM CDT [facility] ALT 22 14 - 55 U/L 12/19/2021 6:07 AM CDT [facility] ALKALINE PHOSPHATASE S/P/B 120 50 - 136 U/L 12/19/2021 6:07 AM CDT [facility] ANION GAP 3.2(L) 5 - 15 MMOL/L 12/19/2021 6:07 AM T [facility] BUN CREATININE RATIO 20.6 6 - 26 12/19/2021 6:07 AM T [facility] A/G RATIO 0.6(L) 1.0 - 2.0 RATIO 12/19/2021 6:07 AM T [facility] GFR ESTIMATE 67(L) >90 ML/MIN/1.7 3 M2 12/19/2021 6:07 AM CDT [facility] Comment: NOTE: eGFR is not calculated for patients <18 years of age. This is an estimated GFR calculation using the new CKD EPI creatinine equation without race and so does not require a correction factor for race. This estimated GFR should not be used for calculating drug doses. 12/19/2021 5:30 AM CDT Eduardo Aguillon APRN LABORATORY Final Result [facility] [address] [place] [address], * (ABNORMAL) CBC W/DIFF AUTOMATED (12/19/2021 5:30 AM CDT) WBC 8.6 4.5 - 11.0 x10'3/uL 12/19/2021 5:41 AM CDT [facility] RBC 3.74(L) 4.20 - 5.40 x10'6/uL 12/19/2021 5:41 AM CDT [facility] HGB 11.3(L) 12.0 - 16.0 G/DL 12/19/2021 5:41 AM CDT [facility] HCT 33.7(L) 38.0 - 48.0 % 12/19/2021 5:41 AM CDT [facility] MCV 90.1 81.0 - 99.0 FL 12/19/2021 5:41 AM CDT [facility] MCH 30.2 27.0 - 31.0 PG 12/19/2021 5:41 AM CDT [facility] MCHC 33.5 32.0 - 36.0 G/DL 12/19/2021 5:41 AM CDT [facility] RDW 12.9 11.5 - 14.5 % 12/19/2021 5:41 AM CDT [facility] PLT 289 130 - 400 x10'3/uL 12/19/2021 5:41 AM T [facility] MPV 10.8 9.3 - 12.2 FL 12/19/2021 5:41 AM CDT [facility] DIFFERENTIAL TYPE AUTOMATED DIFFERENTIAL 12/19/2021 5:41 AM CDT [facility] NEUTROPHILS % 53.4 % 12/19/2021 5:41 AM CDT [facility] LYMPHOCYTES % 39.1 % 12/19/2021 5:41 AM CDT [facility] MONOCYTES % 5.7 % 12/19/2021 5:41 AM CDT [facility] EOSINOPHILS 0.9 % 12/19/2021 5:41 AM CDT [facility] BASOPHILS 0.5 % 12/19/2021 5:41 AM CDT [facility] IMMATURE GRANS % 0.4 % 12/20/19 5:41 AM CDT [facility] ABS. NEUTROPHILS TOTAL 4.57 1.80 - 7.70 x10'3/uL 12/19/2021 5:41 AM CDT [facility] ABS. LYMPHOCYTES 3.35 1.00 - 4.80 x10'3/uL 12/19/2021 5:41 AM CDT [facility] ABS. MONOCYTES 0.49 0.24 - 0.86 x10'3/uL 12/19/2021 5:41 AM CDT [facility] ABS. EOSINOPHILS 0.08 0.04 - 0.36 x10'3/uL 12/19/2021 5:41 AM CDT [facility] ABS. BASOPHILS 0.04 0.01 - 0.08 x10'3/uL 12/19/2021 5:41 AM CDT [facility] ABS. IMMATURE GRANULOCYTES 0.03 0.00 - 0.49 x10'3/uL 12/19/2021 5:41 AM CDT [facility] 12/19/2021 5:30 AM CDT Eduardo Aguillon ANIMAL GENETICIST LABORATORY Final Result [facility] [address] [place] [address], [place] [phone] * Vancomycin Random Level (12/19/2021 5:30 AM CDT) VANCOMYCIN RANDOM 22.4 MCG/ML 12/19/2021 6:03 AM CDT [facility] Comment:NO THERAPEUTIC RANGE AVAILABLE VANCOMYCIN UNKNOWN LAST DOSE 12/19/2021 8:03 AM CDT [facility] 12/19/2021 5:30 AM CDT Eduardo Aguillon APRN LABORATORY Final Result [facility] [address] [place] [address], [place] [phone] * MAGNESIUM (12/19/2021 5:30 AM CDT) MAGNESIUM 1.9 1.8 - 2.4 MG/DL 12/19/2021 6:07 AM CDT [facility] 12/19/2021 5:30 AM CDT Eduardo Aguillon APRN LABORATORY Final Result Performing Organization Address City/[facility]/ZIP Co de Phone Number [facility] [address] [place] [address], [place] [phone] * POCT glucose (12/19/2021 1:14 AM CDT) GLUCOSE POC 93 70 - 99 mg/dL 12/19/2021 1:15 AM CDT [facility] 12/19/2021 1:14 AM CDT Eduardo Aguillon APRN POCT ORDERABLES - DEVICE Final Result Performing Organization Address City/[facility]/ZIP Co de Phone Number [facility] [address] [place] [address], [place] [phone] * (ABNORMAL) POCT glucose (12/19/2021 12:41 AM CDT) GLUCOSE POC 53(L) 70 - 99 mg/dL 12/19/2021 12:43 AM CDT [facility] 12/19/2021 12:4 1 AM CDT Eduardo Aguillon ANIMAL GENETICIST POCT ORDERABLES - DEVICE Final Result Performing Organization Address City/[facility]/ZIP Co de Phone Number [facility] [address] [place] [address], [place] [phone] * (ABNORMAL) POCT glucose (12/18/2021 9:14 PM CDT) GLUCOSE POC 114(H) 70 - 99 mg/dL 12/18/2021 9:17 PM CDT [facility] 12/18/2021 9:14 PM CDT Eduardo Aguillon ANIMAL GENETICIST POCT ORDERABLES - DEVICE Final Result Performing Organization Address City/[facility] Co de Phone Number [facility] [address] [place] [address], [place] [phone] * (ABNORMAL) POCT glucose (12/18/2021 5:51 PM CDT) GLUCOSE POC 112(H) 70 - 99 mg/dL 12/18/2021 7:07 PM CDT [facility] 12/18/2021 5:51 PM CDT us Eduardo Aguillon APRN POCT ORDERABLES - DEVICE Final Result Performing Organization Address City/[facility]/ZIP Co de Phone Number [facility] [address] [place] [address], [place] [phone] * (ABNORMAL) POCT glucose (12/18/2021 12:29 PM CDT) GLUCOSE POC 133(H) 70 - 99 mg/dL 12/18/2021 1:05 PM CDT [facility] 12/18/2021 12:2 9 PM CDT Eduardo Mitchell Dodt ANIMAL GENETICIST POCT ORDERABLES - DEVICE Final Result [facility] [address] [place] [address], [place] [phone] * (ABNORMAL) COMPREHENSIVE METABOLIC PANEL (12/18/2021 5:30 AM CDT) GLUCOSE 131(H) 70 - 99 MG/DL 12/18/2021 6:15 AM CDT [facility] BUN 19(H) 7 - 18 MG/DL 12/18/2021 6:15 AM CDT [facility] CREATININE S/P/B 0.99 0.55 - 1.02 MG/DL 12/18/2021 6:15 AM CDT [facility] SODIUM S/P/B 139 136 - 145 MMOL/L 12/18/2021 6:15 AM CDT [facility] POTASSIUM S/P/B 4.0 3.5 - 5.1 MMOL/L 12/18/2021 6:15 AM CDT [facility] CHLORIDE S/P/B 107 100 - 108 MMOL/L 12/18/2021 6:15 AM CDT [facility] CO2 27.0 21 - 32 MMOL/L 12/18/2021 6:15 AM CDT [facility] CALCIUM S/P/B 8.9 8.5 - 10.1 MG/DL 12/18/2021 6:15 AM CDT [facility] BILIRUBIN TOTAL S/P/B 0.2 0.2 - 1.2 MG/DL 12/18/2021 6:15 AM T [facility] Comment: THIS ASSAY IS NOT RECOMMENDED FOR PATIENTS UNDERGOING TREATMENT WITH ELTROMBOPAG DUE TO THE POTENTIAL FOR FALSELY ELEVATED RESULTS. TOTAL PROTEIN S/P/B 7.7 6.4 - 8.2 G/DL 12/18/2021 6:15 AM CDT [facility] ALBUMIN S/P/B 2.8(L) 3.4 - 5.0 G/DL 12/18/2021 6:15 AM CDT [facility] AST 13(L) 15 - 37 U/L 12/18/2021 6:15 AM T [facility] ALT 17 14 - 55 U/L 12/18/2021 6:15 AM T [facility] ALKALINE PHOSPHATASE S/P/B 118 50 - 136 U/L 12/18/2021 6:15 AM T [facility] ANION GAP 5.0 5 - 15 MMOL/L 12/18/2021 6:15 AM T [facility] BUN CREATININE RATIO 19.2 6 - 26 12/18/2021 6:15 AM T [facility] A/G RATIO 0.6(L) 1.0 - 2.0 RATIO 12/18/2021 6:15 AM [facility] GFR ESTIMATE 69(L) >90 ML/MIN/1.7 3 M2 12/18/2021 6:15 AM T [facility] Comment: NOTE: eGFR is not calculated for patients <18 years of age. This is an estimated GFR calculation using the new CKD EPI creatinine equation without race and so does not require a correction factor for race. This estimated GFR should not be used for calculating drug doses. 12/18/2021 5:30 AM CDT us Wanda Mercer ANIMAL GENETICIST LABORATORY Final Resul t [facility] [address] [place] [address], * (ABNORMAL) CBC W/DIFF AUTOMATED (12/18/2021 5:30 AM CDT) Guthrie Robert Packer [facility] WBC 7.9 4.5 - 11.0 x10'3/uL 12/18/2021 5:57 AM CDT [facility] RBC 3.65(L) 4.20 - 5.40 x10'6/uL 12/18/2021 5:57 AM CDT [facility] HGB 11.1(L) 12.0 - 16.0 G/DL 12/18/2021 5:57 AM CDT [facility] HCT 32.6(L) 38.0 - 48.0 % 12/18/2021 5:57 AM CDT [facility] MCV 89.3 81.0 - 99.0 FL 12/18/2021 5:57 AM CDT [facility] MCH 30.4 27.0 - 31.0 PG 12/18/2021 5:57 AM CDT [facility] MCHC 34.0 32.0 - 36.0 G/DL 12/18/2021 5:57 AM CDT [facility] RDW 12.7 11.5 - 14.5 % 12/18/2021 5:57 AM CDT [facility] PLT 287 130 - 400 x10'3/uL 12/18/2021 5:57 AM CDT [facility] MPV 10.8 9.3 - 12.2 FL 12/18/2021 5:57 AM CDT [facility] DIFFERENTIAL TYPE AUTOMATED DIFFERENTIAL 12/18/2021 5:57 AM CDT [facility] NEUTROPHILS % 53.2 % 12/18/2021 5:57 AM CDT [facility] LYMPHOCYTES % 39.9 % 12/18/2021 5:57 AM CDT [facility] MONOCYTES % 5.0 % 12/18/2021 5:57 AM CDT [facility] EOSINOPHILS 1.3 % 12/18/2021 5:57 AM CDT [facility] BASOPHILS 0.5 % 12/18/2021 5:57 AM CDT [facility] IMMATURE GRANS % 0.1 % 12/19/19 5:57 AM CDT [facility] ABS. NEUTROPHILS TOTAL 4.18 1.80 - 7.70 x10'3/uL 12/18/2021 5:57 AM CDT [facility] ABS. LYMPHOCYTES 3.13 1.00 - 4.80 x10'3/uL 12/18/2021 5:57 AM CDT [facility] ABS. MONOCYTES 0.39 0.24 - 0.86 x10'3/uL 12/18/2021 5:57 AM CDT [facility] ABS. EOSINOPHILS 0.10 0.04 - 0.36 x10'3/uL 12/18/2021 5:57 AM CDT [facility] ABS. BASOPHILS 0.04 0.01 - 0.08 x10'3/uL 12/18/2021 5:57 AM CDT [facility] ABS. IMMATURE GRANULOCYTES 0.01 0.00 - 0.49 x10'3/uL 12/18/2021 5:57 AM CDT [facility] 12/18/2021 5:30 AM CDT Wanda Mercer ANIMAL GENETICIST LABORATORY Final Resul t Performing Organization Address City/[facility] Co de Phone Number [facility] [address] [place] [address], * Vancomycin Random Level (12/18/2021 5:30 AM CDT) VANCOMYCIN RANDOM 22.9 MCG/ML 12/18/2021 6:15 AM CDT [facility] Comment:NO THERAPEUTIC RANGE AVAILABLE VANCOMYCIN UNKNOWN LAST DOSE 12/18/2021 6:39 AM CDT [facility] 12/18/2021 5:30 AM CDT Wanda Maynard MD LABORATORY Final Result Performing Organization Address [facility] Co de Phone Number [facility] [address] [place] [address], * (ABNORMAL) POCT glucose (12/17/2021 11:02 PM CDT) GLUCOSE POC 108(H) 70 - 99 mg/dL 12/17/2021 11:07 PM CDT [facility] 12/17/2021 11:0 2 PM CDT David Schofield PA-C POCT ORDERABLES - DEVICE Katheryn l Result Performing Organization Address City/[facility] Co de Phone Number [facility] [address] [place] [address], * (ABNORMAL) POCT glucose (12/17/2021 10:28 PM CDT) GLUCOSE POC 67(L) 70 - 99 mg/dL 12/17/2021 10:30 PM CDT [facility] 12/17/2021 10:2 8 PM CDT David Wolf PA-C POCT ORDERABLES - DEVICE Katheryn l Result [facility] [address] [place] [address], [place] [phone] * (ABNORMAL) POCT glucose (12/17/2021 7:49 PM CDT) GLUCOSE POC 164(H) 70 - 99 mg/dL 12/17/2021 7:52 PM CDT [facility] 12/17/2021 7:49 PM CDT David MARIE-C POCT ORDERABLES - DEVICE Katheryn l Result Performing Organization Address City/[facility]/ZIP Co de Phone Number [facility] [address] [place] [address], [place] [phone] * (ABNORMAL) POCT glucose (12/17/2021 5:12 PM CDT) GLUCOSE POC 187(H) 70 - 99 mg/dL 12/17/2021 7:52 PM CDT [facility] 12/17/2021 5:12 PM CDT David Schofield PA-C POCT ORDERABLES - DEVICE Katheryn l Result [facility] [address] [place] [address], [place] [phone] * (ABNORMAL) POCT glucose (12/17/2021 12:54 PM CDT) GLUCOSE POC 139(H) 70 - 99 mg/dL 12/17/2021 12:56 PM CDT [facility] 12/17/2021 12:5 4 PM CDT David Schofield PA-C POCT ORDERABLES - DEVICE Katheryn l Result [facility] [address] [place] [address], * MRI FOOT RT WO CON (12/17/2021 [...] t * MAGNESIUM (12/17/2021 6:10 AM CDT) [facility] MAGNESIUM 2.1 1.8 - 2.4 MG/DL 12/17/2021 8:54 AM CDT [facility] 12/17/2021 6:10 AM CDT David Schofield PA-C LABORATORY Final Result [facility] [address] [place] [address], [place] [phone] * (ABNORMAL) COMPREHENSIVE METABOLIC PANEL (12/17/2021 6:10 AM CDT) [facility] GLUCOSE 154(H) 70 - 99 MG/DL 12/17/2021 6:47 AM CDT [facility] BUN 17 7 - 18 MG/DL 12/17/2021 6:47 AM T [facility] CREATININE S/P/B 0.92 0.55 - 1.02 MG/DL 12/17/2021 6:47 AM CDT [facility] SODIUM S/P/B 137 136 - 145 MMOL/L 12/17/2021 6:47 AM CDT [facility] POTASSIUM S/P/B 3.9 3.5 - 5.1 MMOL/L 12/17/2021 6:47 AM T [facility] CHLORIDE S/P/B 105 100 - 108 MMOL/L 12/17/2021 6:47 AM CDT [facility] CO2 29.7 21 - 32 MMOL/L 12/17/2021 6:47 AM T [facility] CALCIUM S/P/B 9.2 8.5 - 10.1 MG/DL 12/17/2021 6:47 AM T [facility] BILIRUBIN TOTAL S/P/B 0.4 0.2 - 1.2 MG/DL 12/17/2021 6:47 AM T [facility] Comment: THIS ASSAY IS NOT RECOMMENDED FOR PATIENTS UNDERGOING TREATMENT WITH ELTROMBOPAG DUE TO THE POTENTIAL FOR FALSELY ELEVATED RESULTS. TOTAL PROTEIN S/P/B 8.2 6.4 - 8.2 G/DL 12/17/2021 6:47 AM CDT [facility] ALBUMIN S/P/B 3.1(L) 3.4 - 5.0 G/DL 12/17/2021 6:47 AM T [facility] AST 14(L) 15 - 37 U/L 12/17/2021 6:47 AM CDT [facility] ALT 20 14 - 55 U/L 12/17/2021 6:47 AM CDT [facility] ALKALINE PHOSPHATASE S/P/B 126 50 - 136 U/L 12/17/2021 6:47 AM CDT [facility] ANION GAP 2.3(L) 5 - 15 MMOL/L 12/17/2021 6:47 AM CDT [facility] BUN CREATININE RATIO 18.5 6 - 26 12/17/2021 6:47 AM CDT [facility] A/G RATIO 0.6(L) 1.0 - 2.0 RATIO 12/17/2021 6:47 AM CDT [facility] GFR ESTIMATE 76(L) >90 ML/MIN/1.7 3 M2 12/17/2021 6:47 AM CDT [facility] Comment: NOTE: eGFR is not calculated for patients <18 years of age. This is an estimated GFR calculation using the new CKD EPI creatinine equation without race and so does not require a correction factor for race. This estimated GFR should not be used for calculating drug doses. 12/17/2021 6:10 AM CDT Wanda Mercer ANIMAL GENETICIST LABORATORY Final Resul t [facility] [address] [place] [address], * (ABNORMAL) CBC W/DIFF AUTOMATED (12/17/2021 6:10 AM CDT) WBC 7.9 4.5 - 11.0 x10'3/uL 12/17/2021 6:35 AM CDT [facility] RBC 3.99(L) 4.20 - 5.40 x10'6/uL 12/17/2021 6:35 AM CDT [facility] HGB 12.2 12.0 - 16.0 G/DL 12/17/2021 6:35 AM CDT [facility] HCT 36.2(L) 38.0 - 48.0 % 12/17/2021 6:35 AM CDT [facility] MCV 90.7 81.0 - 99.0 FL 12/17/2021 6:35 AM CDT [facility] MCH 30.6 27.0 - 31.0 PG 12/17/2021 6:35 AM CDT [facility] MCHC 33.7 32.0 - 36.0 G/DL 12/17/2021 6:35 AM CDT [facility] RDW 12.8 11.5 - 14.5 % 12/17/2021 6:35 AM CDT [facility] PLT 292 130 - 400 x10'3/uL 12/17/2021 6:35 AM CDT [facility] MPV 10.9 9.3 - 12.2 FL 12/17/2021 6:35 AM CDT [facility] DIFFERENTIAL TYPE AUTOMATED DIFFERENTIAL 12/17/2021 6:35 AM CDT [facility] NEUTROPHILS % 54.5 % 12/17/2021 6:35 AM CDT [facility] LYMPHOCYTES % 38.5 % 12/17/2021 6:35 AM CDT [facility] MONOCYTES % 5.2 % 12/17/2021 6:35 AM CDT [facility] EOSINOPHILS 1.1 % 12/17/2021 6:35 AM CDT [facility] BASOPHILS 0.4 % 12/17/2021 6:35 AM CDT [facility] IMMATURE GRANS % 0.3 % 12/18/19 6:35 AM CDT [facility] ABS. NEUTROPHILS TOTAL 4.33 1.80 - 7.70 x10'3/uL 12/17/2021 6:35 AM CDT [facility] ABS. LYMPHOCYTES 3.06 1.00 - 4.80 x10'3/uL 12/17/2021 6:35 AM CDT [facility] ABS. MONOCYTES 0.41 0.24 - 0.86 x10'3/uL 12/17/2021 6:35 AM CDT [facility] ABS. EOSINOPHILS 0.09 0.04 - 0.36 x10'3/uL 12/17/2021 6:35 AM CDT [facility] ABS. BASOPHILS 0.03 0.01 - 0.08 x10'3/uL 12/17/2021 6:35 AM CDT [facility] ABS. IMMATURE GRANULOCYTES 0.02 0.00 - 0.49 x10'3/uL 12/17/2021 6:35 AM CDT [facility] 12/17/2021 6:10 AM CDT us Wanda Mercer APRN LABORATORY Final Resul t [facility] [address] [place] [address], [place] [phone] * (ABNORMAL) Bedside Blood Glucose (12/16/2021 10:21 PM CDT) GLUCOSE WHOLE BLOOD 227(A) 70 - 100 mg/dL us Wanda Mercer APRN NURSING TREATMENT ORDERABLE S - ONCE OR INTERVALS Final Result * (ABNORMAL) POCT glucose (12/16/2021 10:18 PM CDT) GLUCOSE POC 277(H) 70 - 99 mg/dL 12/16/2021 10:21 PM CDT [facility] 12/16/2021 10:1 8 PM CDT Wanda Maynard MD POCT ORDERABLES - DEVICE Fin al Result [facility] [address] [place] [address], * XR FOOT LT 2V (12/16/2021 8:01 [...] MD, 12/16/2021 8:06 PM us Wanda Mercer ANIMAL GENETICIST GENERAL IMAGING Final Resul t * XR [...] Irving MD, 12/16/2021 8:04 PM Wanda Mercer ANIMAL GENETICIST GENERAL IMAGING Final Resul t * (ABNORMAL) MAGNESIUM (12/16/2021 7:00 PM CDT) MAGNESIUM 1.6(L) 1.8 - 2.4 MG/DL 12/16/2021 7:45 PM CDT [facility] 12/16/2021 7:00 PM CDT Wanda Maynard MD LABORATORY Final Result Performing Organization Address [facility] de Phone Number [facility] [address] [place] [address], [place] [phone] * (ABNORMAL) Bedside Blood Glucose (12/16/2021 6:50 PM CDT) GLUCOSE WHOLE BLOOD 179(A) 70 - 100 mg/dL Wanda Mercer ANIMAL GENETICIST NURSING TREATMENT ORDERABLE S - ONCE OR INTERVALS Final Result * (ABNORMAL) POCT glucose (12/16/2021 6:49 PM CDT) GLUCOSE POC 179(H) 70 - 99 mg/dL 12/16/2021 7:03 PM CDT [facility] 12/16/2021 6:49 PM CDT Wanda Maynard MD POCT ORDERABLES - DEVICE Fin al Result Performing Organization Address [facility] Co de Phone Number [facility] [address] [place] [address], [place] [phone] * PARTIAL THROMBOPLASTIN TIME,PTT (12/16/2021 6:34 PM CDT) Pathologist [facility] PTT 26.5 25.1 - 36.5 SEC 12/16/2021 7:31 PM CDT [facility] 12/16/2021 6:34 PM CDT Desiree Mackenzie MD LABORATORY Final Re sult [facility] [address] [place] [address], [place] [phone] * PROTIME/INR, VENOUS (12/16/2021 6:34 PM CDT) [facility] PROTIME 11.9 10.2 - 12.9 SEC 12/16/2021 7:31 PM CDT [facility] INR 1.0 12/16/2021 7:31 PM CDT [facility] Comment: Recommended INR Therapeutic Goals: ??2.0-3.0 Routine Therapy ??2.5-3.5 Mechanical Prosthetic Valves (High Risk) 12/16/2021 6:34 PM CDT Desiree Mackenzie MD LABORATORY Final Re sult [facility] [address] [place] [address], [place] [phone] * Thrombin Time (12/16/2021 6:33 PM CDT) Pathologist [facility] THROMBIN TIME 19 13 - 19 sec 12/21/2021 3:48 AM CDT [employer] JESSIE SANCHEZ Comment: Test Performed by [facility] [place], [facility], [address] [place], [place] Mehrdad You M.D., Ph.D., Director of Laboratories , CLIA [id number] 12/16/2021 6:33 PM CDT Wanda Maynard MD LABORATORY Final Result Performing Organization Address [facility] Co de Phone Number [facility] [address] [place], [place] , [place] [phone] * ANTITHROMBIN III ACTIVITY (12/16/2021 6:33 PM CDT) ANTITHROMBIN III ACTIVITY 132 80 - 135 % normal 12/21/2021 3:48 AM CDT [employer] RITA SANCHEZ Comment: Test Performed by [facility], [facility], [address] [place] [address] Mehrdad You M.D., Ph.D., Director of Laboratories , CLIA [id number] 12/16/2021 6:33 PM CDT Wanda Maynard MD LABORATORY Final Result Performing Organization Address [facility] Co de Phone Number [facility] [address] [place], [place] , [place] [phone] * CULTURE, BACTERIA, BLOOD (12/16/2021 6:15 PM CDT) SPEC DESCRIPTION BLOOD 12/16/2021 5:50 PM CDT [facility] SPECIAL REQUESTS NO SPECIAL REQUEST 12/16/2021 5:50 PM CDT [facility] CULTURE RESULT NO GROWTH 5 DAYS 12/21/2021 11:39 AM CDT [facility] BLOOD SPECIMEN OBTAINED FOR BLOOD CULTURE / Unknown 12/16/2021 6:15 PM CDT 12/16/2021 7:09 PM CDT Wanda Mercer APRN MICROBIOLOGY - GENERAL ORDE RABLES Final Result Performing Organization Address [facility] Co de Phone Number [facility] [address] [place] [address], * CULTURE, BACTERIA, BLOOD (12/16/2021 6:15 PM CDT) SPEC DESCRIPTION BLOOD 12/16/2021 5:50 PM CDT [facility] SPECIAL REQUESTS NO SPECIAL REQUEST 12/16/2021 5:50 PM CDT [facility] CULTURE RESULT NO GROWTH 5 DAYS 12/21/2021 11:39 AM CDT [facility] BLOOD SPECIMEN OBTAINED FOR BLOOD CULTURE / Unknown 12/16/2021 6:15 PM CDT 12/16/2021 7:09 PM CDT Wanda Mercer APRN MICROBIOLOGY - GENERAL ORDE RABHUNTER Final Result Performing Organization Address [facility] Co de Phone Number [facility] [address] [place] [address], * ECG 12 lead (12/16/2021 3:41 PM CDT) 12/16/2021 3:41 PM CDT Narrative [facility] ([facility] - 12/16/2021 9:05 PM CDT ?[facility] ? [address], [place] ? Test Date: ?2021-12-16 Pat Name: ? TYSON MCNEAL ?Department: ?? 41 ? Room: ? 4 Gender: ? Female ? Instrument Man: ?? : ?1970 ? Requested By: DESIREE MACKENZIE Order Number: [id number] ? Reading MD: ?? Carroll Hushion ? Measurements Intervals ?[place] ? Rate: ? 89 ? P: ?34 TN: ? 160 ?QRS: ?15 QRSD: ? 87 [...] Note Carroll Varela MD - 12/16/2021 [facility] Test Date: 2021-12-16 Pat Name: TYSON MCNEAL Department: Room: 4 Gender: Female Instrument Man: : 1970 Requested By: DESIREE MACKENZIE Order Number: [id number] Reading MD: Carroll Varela Measurements Intervals [place] Rate: 89 P: 34 TN: 160 QRS: 15 QRSD: 87 T: 102 QT: 364 QTc: 445 Interpretive Statements SINUS RHYTHM MINIMAL VOLTAGE CRITERIA FOR LVH, CONSIDER NORMAL VARIANT [MEETS CRITERIAIN ONE OF: R(aVL), S(V1), R(V5), R(V5/V6)+S(V1)] NONSPECIFIC T-WAVE ABNORMALITY Compared to ECG 07/10/2021 14:18:26 Ventricular premature complex(es) no longer present T-wave abnormality still present us Desiree Mackenzie MD ECG ORDERABLES Final Re sult [facility] ([facility] * USV ART REST W ADRIANA LOW EXT (12/16/2021 3:11 PM CDT) Anatomical Region Laterality Modality Extremity Vascular Ultraso und 12/16/2021 2:52 PM CDT Narrative 12/17/2021 10:33 PM CDT ?ARTERIAL DOPPLER - ADRIANA ?BILATERAL LOWER EXTREMITY ? VASCULAR LAB Pat.Name: ??TYSON MCNEAL ?Pat.ID: ?[id number] ? St.Date: ?? 12/16/2021 ?Refer.: ??Yasmin Segura [...] waveforms, Digit PPG, Systolic Pressures w/ADRIANA Race: ?-[place] ? ++++++++++++++++++++++++++++++++++++ SUMMARY: ++++++++++++++++++++++++++++++++++++ Joceline ADRIANA Criteria: [...] FINDINGS: ++++++++++++++++++++++++++++++++++++ ++++++++++++++++++++++++++++++++++++ MEASUREMENTS: ++++++++++++++++++++++++++++++++++++ ?DOPPLER Left FLOOR CASHIER ?? FLOOR CASHIER PSV ?123 cm/s ? Left Dist Pop A ?? Dist Pop A PSV ??94.2 cm/s ? Left Dist COMPUTER FORENSIC EXAMINER ?? Dist COMPUTER FORENSIC EXAMINER PSV ?46.2 cm/s ? Left Dist DOMINGA ?? Dist DOMINGA PSV ?56.5 cm/s ? Right FLOOR CASHIER ?? FLOOR CASHIER PSV ?145 cm/s ? Right Dist Pop A ?? Dist Pop A PSV ?? 107 cm/s ? Right Dist COMPUTER FORENSIC EXAMINER ?? Dist COMPUTER FORENSIC EXAMINER PSV ?56.5 cm/s ? Right Dist DOMINGA [...] EXTREMITY VASCULAR LAB Pat.Name: TYSON MCNEAL Pat.ID: [id number] .Date: 12/16/2021 Refer.MD: Yasmin Segura Exam Time: 2:52:00 PM Study Type:MARINO VS Arterial Doppler Legs NOHEMY Height: 66in Age: 2 1970,51Y Sex: FEMALE Sonogrphr: Shahal Toscano RDMS, RVT Pat. Stat.:Outpatient Room: ER History / Clinical:Rt foot wounds. L>R severe leg pain. Lt foot cool to touch with weak pulse. PMH- DM. HTN. HLD. neurop. L2, L3 amp. BMI 39. Prior 06/21/21- Rt 1.12, Lt 1.24 Procedures: Doppler waveforms, Digit PPG, Systolic Pressures w/ADRIANA Race: -[place] ++++++++++++++++++++++++++++++++++++ SUMMARY: ++++++++++++++++++++++++++++++++++++ Joceline ADRIANA Criteria: >1.30 [...] FINDINGS: ++++++++++++++++++++++++++++++++++++ ++++++++++++++++++++++++++++++++++++ MEASUREMENTS: ++++++++++++++++++++++++++++++++++++ DOPPLER Left FLOOR CASHIER FLOOR CASHIER PSV 123 cm/s Left Dist Pop A Dist Pop A PSV 94.2 cm/s Left Dist COMPUTER FORENSIC EXAMINER Dist COMPUTER FORENSIC EXAMINER PSV 46.2 cm/s Left Dist DOMINGA Dist DOMINGA PSV 56.5 cm/s Right FLOOR CASHIER FLOOR CASHIER PSV 145 cm/s Right Dist Pop A Dist Pop A PSV 107 cm/s Right Dist COMPUTER FORENSIC EXAMINER Dist COMPUTER FORENSIC EXAMINER PSV 56.5 cm/s Right Dist DOMINGA Dist [...] PM Hubert Hernandez M.D. Desiree Mackenzie MD [facility] Final Re sult * XR MULTI [...] ulcers to right first and second toes [id number] with diabetic ulcers of the right foot [...] 7 <54 ng/L 12/16/2021 8:31 PM CDT [facility] Comment: HIGH DOSES OF BIOTIN, TROPONIN-SPECIFIC AUTOANTIBODIES, AND ANTIBODY THERAPY CONTAINING HAMA MAY INTERFERE WITH THIS TEST RESULT. CORRELATION TO CLINICAL HISTORY AND PRESENTATION RECOMMENDED. 12/16/2021 2:25 PM CDT Wanda Mercer APRN LABORATORY Final Resul t [facility] [address] [place] [address], [place] [phone] * (ABNORMAL) SED RATE, ERYTHROCYTE (ESR) (12/16/2021 2:25 PM CDT) ESR 70(H) <20 MM/HR 12/16/2021 6:31 PM CDT [facility] Comment:Testing performed on [employer] iSED. 12/16/2021 2:25 PM CDT Desiree Mackenzie MD LABORATORY Final Re sult [facility] [address] [place] [address], [place] [phone] * CK (CPK) (12/16/2021 2:20 PM CDT) CPK 185 21 - 215 U/L 12/16/2021 6:34 PM CDT [facility] 12/16/2021 2:20 PM CDT Wanda Mercer APRN LABORATORY Final Resul t Performing Organization Address City/[facility]/ZIP Co de Phone Number [facility] [address] [place] [address], [place] [phone] * PHOSPHORUS, INORGANIC PHOSPHATE (12/16/2021 2:20 PM CDT) PHOSPHORUS 4.0 2.5 - 4.9 MG/DL 12/16/2021 6:34 PM CDT [facility] 12/16/2021 2:20 PM CDT Wanda Mercer APRN LABORATORY Final Resul t Performing Organization Address City/[facility]/ZIP Co de Phone Number [facility] [address] [place] [address], [place] [phone] * (ABNORMAL) MAGNESIUM (12/16/2021 2:20 PM CDT) MAGNESIUM <0.3(LL) 1.8 - 2.4 MG/DL 12/16/2021 6:34 PM CDT [facility] Comment:ZL CALLED CRITICAL R ESULTS AT 16Dec2021 TO AND READ BACK BY CARLOS MERCEDES 12/16/2021 2:20 PM CDT Wanda Mercer APRN LABORATORY Final Resul t [facility] [address] [place] [address], [place] [phone] * (ABNORMAL) C-REACTIVE PROTEIN (12/16/2021 2:20 PM CDT) C-REACTIVE PROTEIN 3.03(H) <0.29 mg/dL 12/16/2021 6:34 PM CDT [facility] 12/16/2021 2:20 PM CDT Desiree Mackenzie MD LABORATORY Final Re sult Performing Organization Address City/[facility]/ZIP Co de Phone Number [facility] [address] [place] [address], [place] [phone] * (ABNORMAL) COMPREHENSIVE METABOLIC PANEL (12/16/2021 2:20 PM CDT) GLUCOSE 141(H) 70 - 99 MG/DL 12/16/2021 2:53 PM CDT [facility] BUN 15 7 - 18 MG/DL 12/16/2021 2:53 PM CDT [facility] CREATININE S/P/B 1.00 0.55 - 1.02 MG/DL 12/16/2021 2:53 PM CDT [facility] SODIUM S/P/B 137 136 - 145 MMOL/L 12/16/2021 2:53 PM CDT [facility] POTASSIUM S/P/B 3.3(L) 3.5 - 5.1 MMOL/L 12/16/2021 2:53 PM CDT [facility] CHLORIDE S/P/B 104 100 - 108 MMOL/L 12/16/2021 2:53 PM CDT [facility] CO2 28.5 21 - 32 MMOL/L 12/16/2021 2:53 PM CDT [facility] CALCIUM S/P/B 9.8 8.5 - 10.1 MG/DL 12/16/2021 2:53 PM CDT [facility] BILIRUBIN TOTAL S/P/B 0.4 0.2 - 1.2 MG/DL 12/16/2021 2:53 PM CDT [facility] Comment: THIS ASSAY IS NOT RECOMMENDED FOR PATIENTS UNDERGOING TREATMENT WITH ELTROMBOPAG DUE TO THE POTENTIAL FOR FALSELY ELEVATED RESULTS. TOTAL PROTEIN S/P/B 9.8(H) 6.4 - 8.2 G/DL 12/16/2021 2:53 PM CDT [facility] ALBUMIN S/P/B 3.6 3.4 - 5.0 G/DL 12/16/2021 2:53 PM CDT [facility] AST 17 15 - 37 U/L 12/16/2021 2:53 PM CDT [facility] ALT 23 14 - 55 U/L 12/16/2021 2:53 PM CDT [facility] ALKALINE PHOSPHATASE S/P/B 146(H) 50 - 136 U/L 12/16/2021 2:53 PM CDT [facility] ANION GAP 4.5(L) 5 - 15 MMOL/L 12/16/2021 2:53 PM CDT [facility] BUN CREATININE RATIO 15.0 6 - 26 12/16/2021 2:53 PM CDT [facility] A/G RATIO 0.6(L) 1.0 - 2.0 RATIO 12/16/2021 2:53 PM CDT [facility] GFR ESTIMATE 69(L) >90 ML/MIN/1.7 3 M2 12/16/2021 2:53 PM CDT [facility] Comment: NOTE: eGFR is not calculated for patients <18 years of age. This is an estimated GFR calculation using the new CKD EPI creatinine equation without race and so does not require a correction factor for race. This estimated GFR should not be used for calculating drug doses. 12/16/2021 2:20 PM CDT us Desiree Mackenzie MD LABORATORY Final Re sult [facility] [address] [place] [address], [place] [phone] * (ABNORMAL) CBC W/DIFF AUTOMATED (12/16/2021 2:20 PM CDT) WBC 12.1(H) 4.5 - 11.0 x10'3/uL 12/16/2021 2:34 PM CDT [facility] RBC 4.37 4.20 - 5.40 x10'6/uL 12/16/2021 2:34 PM CDT [facility] HGB 13.3 12.0 - 16.0 G/DL 12/16/2021 2:34 PM CDT [facility] HCT 39.7 38.0 - 48.0 % 12/16/2021 2:34 PM CDT [facility] MCV 90.8 81.0 - 99.0 FL 12/16/2021 2:34 PM CDT [facility] MCH 30.4 27.0 - 31.0 PG 12/16/2021 2:34 PM CDT [facility] MCHC 33.5 32.0 - 36.0 G/DL 12/16/2021 2:34 PM CDT [facility] RDW 12.8 11.5 - 14.5 % 12/16/2021 2:34 PM CDT [facility] PLT 326 130 - 400 x10'3/uL 12/16/2021 2:34 PM CDT [facility] MPV 10.9 9.3 - 12.2 FL 12/16/2021 2:34 PM CDT [facility] DIFFERENTIAL TYPE AUTOMATED DIFFERENTIAL 12/16/2021 2:34 PM CDT [facility] NEUTROPHILS % 65.6 % 12/16/2021 2:34 PM CDT [facility] LYMPHOCYTES % 29.9 % 12/16/2021 2:34 PM CDT [facility] MONOCYTES % 3.1 % 12/16/2021 2:34 PM CDT [facility] EOSINOPHILS 0.7 % 12/16/2021 2:34 PM CDT [facility] BASOPHILS 0.4 % 12/16/2021 2:34 PM CDT [facility] IMMATURE GRANS % 0.3 % 12/17/19 2:34 PM CDT [facility] ABS. NEUTROPHILS TOTAL 7.90(H) 1.80 - 7.70 x10'3/uL 12/16/2021 2:34 PM CDT [facility] ABS. LYMPHOCYTES 3.61 1.00 - 4.80 x10'3/uL 12/16/2021 2:34 PM CDT [facility] ABS. MONOCYTES 0.37 0.24 - 0.86 x10'3/uL 12/16/2021 2:34 PM CDT [facility] ABS. EOSINOPHILS 0.09 0.04 - 0.36 x10'3/uL 12/16/2021 2:34 PM CDT [facility] ABS. BASOPHILS 0.05 0.01 - 0.08 x10'3/uL 12/16/2021 2:34 PM CDT [facility] ABS. IMMATURE GRANULOCYTES 0.04 0.00 - 0.49 x10'3/uL 12/16/2021 2:34 PM CDT [facility] 12/16/2021 2:20 PM CDT Desiree Mackenzie MD LABORATORY Final Re sult [facility] [address] [place] [address], [place] [phone] * PROCALCITONIN (PCT) (12/16/2021 2:07 PM CDT) Procalcitonin <0.05 <0.5 NG/ML 12/16/2021 3:33 PM CDT [facility] 12/16/2021 2:07 PM CDT Desiree Mackenzie MD LABORATORY Final Re sult [facility] [address] [place] [address], [place] [phone] documented in this encounter Visit Diagnoses Not on filedocumented in this encounter Admitting Diagnoses Diagnosis Diabetic foot infection ([facility]/HCC [facility]/HCC) Type II or unspecified type diabetes mellitus [...] 1200, Until Discontinued Given 12/26/2021 8:11 AM BREAD PACKER 1 capsule Given 12/25/2021 8:57 PM BREAD PACKER 1 capsule Given 12/25/2021 1:29 PM BREAD PACKER 1 capsule amLODIPine (NORVASC) tablet 10 mg 10 mg, Oral, Nightly, First dose on Sun12/16/21 at 2100, Until Discontinued, Hold for SBP<110 Given 12/25/2021 8:57 PM BREAD PACKER 10 mg Given 12/24/2021 8:01 PM CDT 10 mg Given 12/23/2021 8:00 PM CDT 10 mg atorvastatin (LIPITOR) tablet 20 mg 20 mg, Oral, Daily, First dose on Sun12/16/21 at 1815, Until Discontinued Given 12/26/2021 8:11 AM BREAD PACKER 20 mg Given 12/25/2021 9:18 AM BREAD PACKER 20 mg Given 12/24/2021 9:19 AM CDT [...] per protocol New Bag 12/26/2021 11:39 AM BREAD PACKER 2 g 200 mL/hr New Bag 12/26/2021 2:52 AM BREAD PACKER 2 g 200 mL/hr New Bag 12/25/2021 9:00 PM BREAD PACKER 2 g 200 mL/hr cetirizine (ZyrTEC) tablet 10 mg 10 mg, Oral, Daily, First dose on [facility] 12/24/21 at 1315, Until Discontinued Given 12/26/2021 8:11 AM BREAD PACKER 10 mg Given 12/25/2021 9:18 AM BREAD PACKER 10 mg Given 12/24/2021 1:40 PM CDT [...] mL/hr, Every 24 hours, First dose on [facility] 12/24/21 at 1200, Until Discontinued New Bag 12/26/2021 11:39 AM BREAD PACKER 450 mg 200 mL/hr New Bag 12/25/2021 2:08 PM BREAD PACKER 450 mg 200 mL/hr New Bag 12/24/2021 [...] 2100, Until Discontinued Given 12/26/2021 8:11 AM BREAD PACKER 100 mg Given 12/25/2021 9:19 AM BREAD PACKER 100 mg Given 12/24/2021 8:30 PM CDT 100 mg fluticasone propionate (FLONASE) 50 MCG/ACT nasal spray 1 spray 1 spray, Each Nostril, Daily, First dose on Sun12/24/21 at 1315, Until Discontinued Given 12/26/2021 8:10 AM BREAD PACKER 1 sp ray Given 12/25/2021 6:37 AM BREAD PACKER 1 spray Given 12/24/2021 2:16 PM CDT [...] 2100, Until Discontinued Given 12/26/2021 8:10 AM BREAD PACKER 5,000 Units Left Lower Abdomen Given 12/25/2021 8:57 PM BREAD PACKER 5,000 Units L eft Lower Abdomen Given 12/25/2021 9:18 AM BREAD PACKER 5,000 Units R ight Lower Abdomen heparin lock flush 10 UNIT/ML injection 3 mL 3 mL, Intracatheter, Every 24 hours, First dose on Viky 12/22/21 at 2015, Until Discontinued Given 12/25/2021 8:56 PM BREAD PACKER 3 mLs Given 12/24/2021 8:03 PM CDT 3 mLs Given 12/23/2021 8:12 PM CDT 3 mLs heparin lock flush 10 UNIT/ML injection 3 mL 3 mL, Intracatheter, As needed, Line care, Starting on Viky 12/22/21 at 1951, Until 12/26/21 at 1812, After each use Given 12/25/2021 4:16 AM BREAD PACKER 3 mLs HYDROcodone-acetaminophen (NORCO) 5-325 MG tablet 1 tablet 1 tablet, Oral, Every 6 hours PRN, Moderate pain (Scale 4 - 7), Starting on Sun12/20/21 at 1113, Until 12/26/21 at 1812, Maximum dose of acetaminophen is 4000 mg from all sources in 24 hours. Given 12/25/2021 10:41 PM BREAD PACKER 1 tab let Given 12/25/2021 12:13 AM CDT 1 tablet Given 12/24/2021 6:09 PM CDT 1 tablet hydrOXYzine (VISTARIL) capsule 25 mg 25 mg, Oral, Nightly at bedtime, First dose on Sun12/16/21 at 2100, Until Discontinued Given 12/25/2021 8:57 PM BREAD PACKER 25 mg Given 12/24/2021 8:01 PM CDT 25 mg Given 12/23/2021 7:59 PM CDT 25 mg insulin aspart protamine-insulin aspart (NOVOLOG 70/30) injection 55 Units 55 Units, Subcutaneous, Daily with supper, First dose on 12/24/21 at 1700, Until Discontinued Given 12/25/2021 5:43 PM BREAD PACKER 55 Units Left Arm Given 12/24/2021 6:09 PM CDT 55 Units Le ft Arm insulin aspart protamine-insulin aspart (NOVOLOG 70/30) injection 65 Units 65 Units, Subcutaneous, Daily with breakfast, First dose on 12/24/21 at 0830, Until Discontinued Given 12/26/2021 8:10 AM BREAD PACKER 65 Units Right Arm Given 12/25/2021 9:18 AM BREAD PACKER 65 Units Le ft Arm Given 12/24/2021 [...] and Call Physician] Given 12/26/2021 1:25 PM BREAD PACKER 2 Units Right Lower Abdomen Given 12/25/2021 5:44 PM BREAD PACKER 10 Units Le ft Arm Given 12/25/2021 1:29 PM BREAD PACKER 4 Units Ri ght Arm insulin lispro [...] and Call Physician] Given 12/25/2021 8:56 PM BREAD PACKER 2 Units Left Lower Abdomen Given 12/24/2021 [...] medication stored in patient specific bin in [place]. Please send home with patient upon discharge from hospital. Given 12/26/2021 6:24 AM BREAD PACKER 145 mcg Given 12/25/2021 6:35 AM BREAD PACKER 145 mcg Given 12/23/2021 6:23 AM CDT [...] not in use Given 12/25/2021 9:00 PM BREAD PACKER 5 mLs Given 12/24/2021 8:30 PM CDT [...] chew, or crush. Given 12/26/2021 8:11 AM BREAD PACKER 40 mg Given 12/25/2021 9:18 AM BREAD PACKER 40 mg Given 12/24/2021 9:20 AM CDT [...] may contain times in both CDT and BREAD PACKER. Scheduled Medication Order 12/24/2021 12/25/2021 12/26/2021 acidophilus [...] Provider: Kortney Elias RN - Reason: Patient/family declined)2029 (Given [...] Sprague RN) 0810 (Given - Provider: David Girmes RN) heparin (porcine) injection 5,000 Units(Linked Group [...] Kortney Elias RN)1810 (Given - Provider: Kortney M Biebel, RN) 0637 (Not Given - [...] medication stored in patient specific bin in [place]. Please send home with patient upon discharge [...] Kortney Elias RN)2216 (Given - Provider: Isabelle Sprague, DEANDRE) 0635 (Given - Provider: Isabelle Sprague, [...] with Chlorhexidine Gluconate, then daily. Refer to [facility] for specific bathing instructions. Group 3: insulin [...] Depression Total Score: 0 03/08/19 9:30 AM BREAD PACKER documented as of this encounter Care Teams Iron Worker Apprentice Relationship Specialty Start Date End Date Yasmin Segura II, MD [address] [place], [place] [phone] PCP - General FAMILY PRACTICE 03/09/21 documented as of this encounter
--- OUTSIDE RECORDS SUMMARY | 2024-03-03 01:26 | XMS_ITS | Encounter Summary ---
Author Organization [facility] Address [address] [place] [address]. [place] [address] [place] [address] Care Team Providers Care Printed Circuit Board Panels Deburrer Name Role Phone Colton SILVEIRA MD, Abiodun Rushing Primary Care Provider Reason for Visit * Auth/Cert Specialty Diagnoses / Procedures Referred By Lyla chaney Referred To Contact Diagnoses Hypokalemia Diabetic foot ulcer ([facility]/HCC) Diabetic foot infection ([facility]/HCC) Diabetic foot infection ([facility]) Procedures NONE Lisseth Prado MD 1 [place] [address] Phone: tel: [phone] fax: Referral ID Status Reason Start Date Expiration Date Visits Re quested Visits Authorized [id number] 1 1 Encounter Details Date Type Department Care Team (Late st Contact Info) Description 12/22/2021 7:00 AM CDT Anesthesia Event [facility] [place], [place] [phone] Viet Araujo MD [address] [facility] [address] [address] Anesthesia Record Procedure Summary Procedure Name Responsible [...] in making decisions. The Student Registered Nurse Hematologist, Jordan DELGADO, was introduced to the patient [...] date: Charcot foot due to diabetes mellitus ([facility]) Comment: LEFT FOOT No date: COVID-19 No date: Diabetes mellitus ([facility]) No date: Diabetic neuropathy ([facility]) No date: High cholesterol No date: Hypertension [...] st Contact Info) Description 03/14/2024 11:45 AM MIGRATORY FARM HAND Office Visit [facility] [phone] Marvin Mckeon MD Three [facility] [address] [place] [address] 03/20/2024 11:30 AM MIGRATORY FARM HAND Office Visit [facility] Family Medicine - [place] [address] [place] [phone] Abiodun Segura II, MD [address] [place], [place] [phone] documented as of this encounter Visit Diagnoses [...] over 2-5 minutes. Given 12/25/2021 10:30 AM MIGRATORY FARM HAND 4 mg Given 12/22/2021 7:24 AM CDT 4 mg Given 12/20/2021 8:25 PM CDT 4 mg phenylephrine (SAL-SYNEPHRINE) injection Intravenous, PRN, Starting on Viky 12/22/21 at 0717, Until Viky 12/22/21 at 0733, Anesthesia Intra-Op Given 12/22/2021 7:21 AM CDT 80 mcg Given 12/22/2021 7:20 AM CDT 40 mcg Given 12/22/2021 7:17 AM CDT 40 mcg propofol (DIPRIVAN) IV bolus Intravenous, PRN, Starting on Viky 12/22/21 at 0705, Until Viky 12/22/21 at 0733, Anesthesia Intra-Op Given 12/22/2021 7:05 AM CDT 140 mg documented in this encounter Additional Health Concerns Assessment Noted Time PHQ-9 Depression Total Score: 0 03/08/19 9:30 AM MIGRATORY FARM HAND documented as of this encounter Care Teams Printed Circuit Board Panels Deburrer Relationship Specialty Start Date End Date Abiodun Segura II, MD [address] [place] [address] PCP - General FAMILY PRACTICE 03/09/21 documented as of this encounter
--- OUTSIDE RECORDS SUMMARY | 2024-03-03 01:26 | XMS_ITS | Encounter Summary ---
Author Organization [facility] Address [address] [place] [address]. [place], [place] [phone] [place] [address] Care Team Providers Care Box Stacker Name Role Phone Colton SILVEIRA MD, [...] st Contact Info) Description 03/14/2024 11:45 AM BIOLOGICAL INSPECTOR Office Visit [facility]-[address] [phone] Marvin Mckeon MD Three [facility] [address] [place] [address] 03/20/2024 11:30 AM BIOLOGICAL INSPECTOR Office Visit [facility] Family Medicine - [address] [phone] Abiodun Segura II, MD [address] [place] [address] documented as of this encounter Visit Diagnoses Not on filedocumented in this encounter Additional Health Concerns Assessment Noted Time PHQ-9 Depression Total Score: 0 03/08/19 9:30 AM BIOLOGICAL INSPECTOR documented as of this encounter Care Teams Box Stacker Relationship Specialty Start Date End Date Abiodun Segura II, MD 100 [place] [address] PCP - General FAMILY PRACTICE 03/09/21 documented as of this encounter
--- OUTSIDE RECORDS SUMMARY | 2024-03-03 01:26 | XMS_ITS | Encounter Summary ---
Author Organization [facility] Address [address] [place] [address]. [place], [place] [phone] [place] [address] Care Team Providers Care Solar Business Developer Name Role Phone Colton SILVEIRA MD, [...] st Contact Info) Description 03/14/2024 11:45 AM ECONOMICS INSTRUCTOR Office Visit [facility] [phone] Marvin Mckeon MD Three [facility] [address] [place] [address] 03/20/2024 11:30 AM ECONOMICS INSTRUCTOR Office Visit [facility] Family Medicine - [address] [phone] Abiodun Segura II, MD [address] [place] [address] documented as of this encounter Visit Diagnoses Not on filedocumented in this encounter Additional Health Concerns Assessment Noted Time PHQ-9 Depression Total Score: 0 03/08/19 9:30 AM ECONOMICS INSTRUCTOR documented as of this encounter Care Teams Solar Business Developer Relationship Specialty Start Date End Date Abiodun Segura II, MD 100 [place] [address] PCP - General FAMILY PRACTICE 03/09/21 documented as of this encounter
--- OUTSIDE RECORDS SUMMARY | 2024-03-03 01:26 | XMS_ITS | Encounter Summary ---
Author Organization [facility] Address [address] [place] [address]. [place] [address] [place] [address] Care Team Providers Care Shuttle Repairer Name Role Phone Colton SILVEIRA MD, Abiodun Rushing Primary Care Provider Reason for Visit * Reason Onset Date Comments Record Request 09/01/2021 Encounter Details Date Type Department Care Team (Late st Contact Info) Description 09/01/2021 Telephone [facility] Family Medicine - [place] [address] [place] [address] Abiodun Segura II, MD [address] [place] [address] Record Request Social History Tobacco [...] 09/01/2021 1:43 PM CDT I have vaxed [facility] for DM eye exam report documented in this encounter Plan of Treatment Upcoming Encounters Date Type Department Care Team (Late st Contact Info) Description 03/14/2024 11:45 AM TILE INSTALLER Office Visit [facility]-[address] [phone] Marvin Mckeon MD [facility] [address] [place] [address] 03/20/2024 11:30 AM TILE INSTALLER Office Visit [facility] Family Medicine - [place] [address] [place] [phone] Abiodun Segura II, MD [address] [place] [address] documented as of this encounter Visit Diagnoses Not on filedocumented in this encounter Additional Health Concerns Assessment Noted Time PHQ-9 Depression Total Score: 0 03/08/19 9:30 AM TILE INSTALLER documented as of this encounter Care Teams Shuttle Repairer Relationship Specialty Start Date End Date Abiodun Segura II, MD [address] [place] [address] PCP - General FAMILY PRACTICE 03/09/21 documented as of this encounter
--- OUTSIDE RECORDS SUMMARY | 2024-03-03 01:26 | XMS_ITS | Encounter Summary ---
Author Organization [facility] Address [address] [place] [address]. [place] [address] [place] [address] Care Team Providers Care Ramp Manager Name Role Phone Colton SILVEIRA MD, Abiodun Rushing Primary Care Provider Reason for Visit * Reason Onset Date Comments Medication Reconciliation 10/04/2021 Encounter Details Date Type Department Care Team (Late st Contact Info) Description 10/04/2021 Telephone [facility] Family Medicine - [place] [address] [place] [address] Abiodun Seguar II, MD [address] [place] [address] Medication Reconciliation Social History Tobacco [...] MA - 10/04/2021 12:21 PM CDT Pharmacy ([facility]) faxed a refill request stating patient needs [...] st Contact Info) Description 03/14/2024 11:45 AM GRAPHICS EDIT TECHNICIAN Office Visit [facility]-[address] [phone] Marvin Mckeon MD Three [facility] [address] [place] [address] 03/20/2024 11:30 AM GRAPHICS EDIT TECHNICIAN Office Visit [facility] Family Medicine - [place] [address] [place] [phone] Abiodun Segura II, MD [address] [place], [place] [phone] documented as of this encounter Visit Diagnoses Not on filedocumented in this encounter Additional Health Concerns Assessment Noted Time PHQ-9 Depression Total Score: 0 03/08/19 22 9:30 AM GRAPHICS EDIT TECHNICIAN documented as of this encounter Care Teams Ramp Manager Relationship Specialty Start Date End Date Abiodun Segura II, MD [address] [place] [address] PCP - General FAMILY PRACTICE 03/09/21 documented as of this encounter
--- OUTSIDE RECORDS SUMMARY | 2024-03-03 01:26 | XMS_ITS | Encounter Summary ---
Author Organization [facility] Address [address] [place] [address]. [place], [place] [phone] [place] [address] Care Team Providers Care Division Order Technician Name Role Phone Colton SILVEIRA MD, [...] st Contact Info) Description 03/14/2024 11:45 AM PEDIATRIC NEPHROLOGIST Office Visit [facility]-[address] [phone] Marvin Mckeon MD Three [facility] [address] [place] [address] 03/20/2024 11:30 AM PEDIATRIC NEPHROLOGIST Office Visit [facility] Family Medicine - [address] [phone] Abiodun Segura II, MD [address] [place] [address] documented as of this encounter Visit Diagnoses Not on filedocumented in this encounter Additional Health Concerns Assessment Noted Time PHQ-9 Depression Total Score: 0 03/08/19 9:30 AM PEDIATRIC NEPHROLOGIST documented as of this encounter Care Teams Division Order Technician Relationship Specialty Start Date End Date Abiodun Segura II, MD 100 [place] [address] PCP - General FAMILY PRACTICE 03/09/21 documented as of this encounter
--- OUTSIDE RECORDS SUMMARY | 2024-03-03 01:26 | XMS_ITS | Encounter Summary ---
Author Organization [facility] Address [address] [place] [address]. [place] [address] [place] [address] Care Team Providers Care Pc Network Technician Name Role Phone Colton SILVEIRA MD, Abiodun Rushing Primary Care Provider Reason for Visit * Reason Onset Date Comments Other 10/28/2021 Encounter Details Date Type Department Care Team (Late st Contact Info) Description 10/28/2021 Telephone [facility] Family Medicine [place] [address] [place] [address] Abiodun Segura II, MD [address] [place] [address] Other Social History Tobacco Use [...] wants a script called in , Pharmacy [facility] , call k pt and let her know if this can be done documented in this encounter Plan of Treatment Upcoming Encounters Date Type Department Care Team (Late st Contact Info) Description 03/14/2024 11:45 AM COMMERCIAL LOAN ANALYST Office Visit [facility]-[address] [address] Marvin Mckeon MD Three [facility] [address] [place] [address] 03/20/2024 11:30 AM COMMERCIAL LOAN ANALYST Office Visit [facility] Family Medicine - [place] [address] [place] [phone] Abiodun Segura II, MD [address] [place] [address] documented as of this encounter Visit Diagnoses Not on filedocumented in this encounter Additional Health Concerns Assessment Noted Time PHQ-9 Depression Total Score: 0 03/08/19 9:30 AM COMMERCIAL LOAN ANALYST documented as of this encounter Care Teams Pc Network Technician Relationship Specialty Start Date End Date Abiodun Segura II, MD [address] [place], [place] [phone] PCP - General FAMILY PRACTICE 03/09/21 documented as of this encounter
--- OUTSIDE RECORDS SUMMARY | 2024-03-03 01:26 | XMS_ITS | Encounter Summary ---
Author Organization [facility] Address [address] [place] [address]. [place], [place] [phone] [place] [address] Care Team Providers Care Offset Pressman Name Role Phone Colton SIVLEIRA MD, Abiodun Rushing Primary Care Provider Encounter [...] st Contact Info) Description 03/14/2024 11:45 AM BIOANALYST Office Visit [facility]-[address] [address] Marvin Mckeon MD Three [facility] [address] [place] [address] 03/20/2024 11:30 AM BIOANALYST Office Visit [facility] Family Medicine - [address] [phone] Abiodun Segura II, MD [address] [place] [address] documented as of this encounter Visit Diagnoses Not on filedocumented in this encounter Additional Health Concerns Assessment Noted Time PHQ-9 Depression Total Score: 0 03/08/19 9:30 AM BIOANALYST documented as of this encounter Care Teams Offset Pressman Relationship Specialty Start Date End Date Abiodun Segura II, MD [address] [place] [address] PCP - General FAMILY PRACTICE 03/09/21 documented as of this encounter
--- OUTSIDE RECORDS SUMMARY | 2024-03-03 01:26 | XMS_ITS | Encounter Summary ---
Author Organization [facility] Address [address] [place] [address]. [place] [address] [place] [address] Care Team Providers Care Pet Ambassador Name Role Phone Colton SILVEIRA MD, Yasmin Rushing Primary Care Provider Reason for Visit * Reason Comments Follow Up Diabetes and A1C [place] ck Encounter Details Date Type Department Care Team (Late st Contact Info) Description 09/07/2021 10:20 AM CDT Office Visit [facility] Family Medicine - [place] [address] [place] [address] Yasmin Valenzuela II, MD [address] [place] [address] Follow Up (Diabetes and A1C [...] from the original note were not included. [facility] FAMILY MEDICINE [address] [address] OFFICE FOLLOW UP NOTE Encounter Date: 09/07/2021 Chief Complaint: Follow Up (Diabetes and A1C check) History of Present Illness: 51-year-old female with history of diabetes, hypertension, decreased vision, Charcot foot, chronic low back pain here for hemoglobin A1c and blood pressure check. Patient reports that she is doing well except for her chronic aches and pains. Patient does report that her ysod-tqk-idixjcf vitamin B12and women's once a day seems [...] long- term current use of insulin ([facility]) A1C (BACK OFFICE) 2. Primary hypertension 3. Vision decreased 4. Chronic bilateral low back pain without sciatica 5. Charcot foot due to diabetes mellitus (CMS/HCC) Plan: No orders of the defined types were placed in this encounter. 1. Type 2 diabetes mellitus with diabetic neuropathic arthropathy, with long- term current use of insulin (CMS/[facility]) Patient's hemoglobin A1c is at goal. [...] Portions of this note were dictated using YOUnite speech recognition software. Occasional wrong wordor sound-alike substitutions may have occurred due to the inherent limitations of voice recognition software. Please read the chart carefully and recognize, using context, where the substitutions may have occurred. documented in this encounter Plan of Treatment Upcoming Encounters Date Type Department Care Team (Late st Contact Info) Description 03/14/2024 11:45 AM MAGNESIUM MILL OPERATOR Office Visit [facility]-[address] [address] Marvin Mckeon MD Three [facility] [address] [place], [place] [phone] 03/20/2024 11:30 AM MAGNESIUM MILL OPERATOR Office Visit [facility] Family Medicine - [place] [address] [place] [phone] Yasmin Valenzuela II, MD [address] [place], [place] [phone] documented as of this encounter Procedures Procedure Name Priority Date/Time Associated Diagnosis Comments HEMOGLOBIN, GLYCOSYLATED Routine 09/07/2021 Type 2 diabetes mellitus with diabetic neuropathic arthropathy, with long-term current use of insulin ([facility]) documented in this encounter Results * A1C (BACK OFFICE) (09/07/2021) HGB A1C 7.3 % MG-100 [facility] 09/07/2021 Yasmin Valenzuela II, MD LABORATORY Final R esult MG-100 [facility] 100 [place] [address], [place] [phone] documented in this encounter Visit Diagnoses Diagnosis Type 2 diabetes mellitus with diabetic neuropathic arthropathy, with long-term current use of insulin ([facility])- Primary Primary hypertension Unspecified essential hypertension Vision decreased Unspecified visual loss Chronic bilateral low back pain without sciatica Charcot foot due to diabetes mellitus ([facility] HHS/HCC) Type II or unspecified type diabetes mellitus with neurological manifestations, not stated as uncontrolled documented in this encounter Additional Health Concerns Assessment Noted Time PHQ-9 Depression Total Score: 0 03/08/19 22 9:30 AM MAGNESIUM MILL OPERATOR documented as of this encounter Care Teams Pet Ambassador Relationship Specialty Start Date End Date Yasmin Valenzuela II, MD [address] [place] [address] PCP - General FAMILY PRACTICE 03/09/21 documented as of this encounter
--- OUTSIDE RECORDS SUMMARY | 2024-03-03 01:26 | XMS_ITS | Encounter Summary ---
Author Organization [facility] Address [address] [place] [address]. [place], [place] [address] [place] [address] Care Team Providers Care Line Painting Machine Operator Name Role Phone Colton SILVEIRA [...] st Contact Info) Description 03/14/2024 11:45 AM REFINERY PIPELINE OPERATOR Office Visit [facility]-[address] [address] Marvin Mckeon MD Three [facility] [address] [place] [address] 03/20/2024 11:30 AM REFINERY PIPELINE OPERATOR Office Visit [facility] Family Medicine - [place] [address] [place] [phone] Abiodun Segura II, MD [address] [place] [phone] documented as of this encounter Visit Diagnoses Not on filedocumented in this encounter Additional Health Concerns Assessment Noted Time PHQ-9 Depression Total Score: 0 03/08/19 9:30 AM REFINERY PIPELINE OPERATOR documented as of this encounter Care Teams Line Painting Machine Operator Relationship Specialty Start Date End Date Abiodun Segura II, MD 100 [place] [address] PCP - General FAMILY PRACTICE 03/09/21 documented as of this encounter
--- OUTSIDE RECORDS SUMMARY | 2024-03-03 01:26 | XMS_ITS | Encounter Summary ---
Author Organization [facility] Address [address] [place] [address]. [place], [place] [address] [place] [address] Care Team Providers Care Cloth Shrinking Tester Name Role Phone Colton SILVEIRA MD, Yasmin Rushing Primary Care Provider Reason for Referral * Consultation (Routine) - Closed Specialty Diagnoses / Procedures Referred By Lyla chaney Referred To Contact DERMATOLOGY Diagnoses Folliculitis Procedures OFFICE/OUTPT VISIT,NEW,LEVL III OFFICE/OUTPT VISIT,NEW,LEVL IV OFFICE/OUTPT VISIT,NEW,LEVL V OFFICE/OUTPT VISIT,EST,LEVL III OFFICE/OUTPT VISIT,EST,LEVL IV OFFICE/OUTPT VISIT,EST,LEVL V Yasmin Valenzuela II, MD 100 [place] [address] Phone: tel: fax: Soham Bettencourt MD [address] [place] [address] Phone: tel: fax: Referral ID Status Reason Start Date Expiration Date V isits Requested Visits Authorized [id number] Closed Specialty Services 10/20/2021 04/18/2022 6 6 Scheduling Instructions 51yo female with recurrent bouts of folliculitis on face and neck. Please evaluate and treat. Thanks. Reason for Visit * Reason Comments Skin Problem Patient c/o a itchy breakout on her face Encounter Details Date Type Department Care Team (Late st Contact Info) Description 09/29/2021 9:00 AM CDT Office Visit [facility] Family Medicine - [place] 100 [place] [phone] Yasmin Valenzuela II, MD 100 [place], [place] [phone] Skin Problem (Patient c/o a itchy breakout [...] from the original note were not included. [facility] FAMILY [address] [address] OFFICE FOLLOW UP NOTE Encounter Date: 09/29/2021 [...] with long- term current use of insulin ([facility]) Plan: Orders Placed This Encounter Medications [...] with long- term current use of insulin ([facility]) Patient's last hemoglobin A1c as noted above. This is near goal. We will plan to check hemoglobin A1c at her follow-up appointment in November. There are no discontinued medications. YASMIN VALENZUELA MD 09/29/2021 Portions of this note were dictated using Hot Dot speech recognition software. Occasional wrong wordor sound-alike substitutions may have occurred due to the inherent limitations of voice recognition software. Please read the chart carefully and recognize, using context, where the substitutions may have occurred. documented in this encounter Plan of Treatment Upcoming Encounters Date Type Department Care Team (Late st Contact Info) Description 03/14/2024 11:45 AM SENIOR RESERVATIONS AGENT Office Visit [facility]-[address] [address] Marvin Mckeon MD [facility] [address] [facility] [place], [place] [phone] 03/20/2024 11:30 AM SENIOR RESERVATIONS AGENT Office Visit [facility] Family Medicine - [place] [address] Yasmin Valenzuela II, MD [address] [place] [address] Scheduled Referrals Name Type Priority Associated Diagnoses Orde r Schedule Ambulatory referral to Dermatology Referral Routine Folliculitis Ordered: 09/29/2021 documented as of this encounter Visit Diagnoses Diagnosis Folliculitis- Primary Other specified disease of hair and hair follicles Primary hypertension Unspecified essential hypertension Type 2 diabetes mellitus with diabetic neuropathic arthropathy, with long-term current use of insulin ([facility]) documented in this encounter Additional Health Concerns Assessment Noted Time PHQ-9 Depression Total Score: 0 03/08/19 22 9:30 AM SENIOR RESERVATIONS AGENT documented as of this encounter Care Teams Cloth Shrinking Tester Relationship Specialty Start Date End Date Yasmin Valenzuela II, MD 100 [place] [address] PCP - General FAMILY PRACTICE 03/09/21 documented as of this encounter
--- OUTSIDE RECORDS SUMMARY | 2024-03-03 01:26 | XMS_ITS | Encounter Summary ---
Author Organization [facility] Address [address] [place] [address]. [place] [address] [place] [address] Care Team Providers Care Box Toe Stitcher Name Role Phone Colton SILVEIRA MD, Abiodnu Rushing Primary Care Provider Reason for Visit * Reason Onset Date Comments Information 12/16/2021 Encounter Details Date Type Department Care Team (Late st Contact Info) Description 12/16/2021 Telephone [facility] Family Medicine [place] 100 [place] [address] Abiodun Segura II, MD 100 [place] [address] Information Social History Tobacco Use [...] 12:48 PM CDT Pt is going to [facility] to get admitted for her feet having blisters. left a msg for Dr. Segura to call him back. documented in this encounter Plan of Treatment Upcoming Encounters Date Type Department Care Team (Late st Contact Info) Description 03/14/2024 11:45 AM DENTURES LAB TECHNICIAN Office Visit [facility]-[address] [phone] Marvin Mckeon MD [address] [facility] [address] [place] [address] 03/20/2024 11:30 AM DENTURES LAB TECHNICIAN Office Visit [facility] Family Medicine - [place] [phone] Abiodun Segura II, MD [address] [place] [address] documented as of this encounter Visit Diagnoses Not on filedocumented in this encounter Additional Health Concerns Assessment Noted Time PHQ-9 Depression Total Score: 0 03/08/19 9:30 AM DENTURES LAB TECHNICIAN documented as of this encounter Care Teams Box Toe Stitcher Relationship Specialty Start Date End Date Abiodun Segura II, MD 100 [place] [address] PCP - General FAMILY PRACTICE 03/09/21 documented as of this encounter
--- OUTSIDE RECORDS SUMMARY | 2024-03-03 01:26 | XMS_ITS | Encounter Summary ---
Author Organization [facility] Address [address] [place] [address]. [place] [address] [place] [address] Care Team Providers Care Instructor Painting Name Role Phone Colton SILVEIRA MD, Abiodun Rushing Primary Care Provider Encounter Details Date Type Department Care Team (Late st Contact Info) Description 10/28/2021 Orders Only [facility] Family Medicine - [place] 100 [place] [address] Abiodun Segura II, MD 100 [place] [address] Social History Tobacco Use Types [...] Contact Info) Description 03/14/2024 11:45 AM LEAD BI DEVELOPER Office Visit [facility] [phone] Marvin Mckeon MD Three [facility] [address] [place], [place] [address] 03/20/2024 11:30 AM LEAD BI DEVELOPER Office Visit [facility] Family Medicine - [address] [phone] Abiodun Segura II, MD [address] [place] [address] documented as of this encounter Visit Diagnoses Diagnosis Cystitis- Primary Cystitis, unspecified documented in this encounter Additional Health Concerns Assessment Noted Time PHQ-9 Depression Total Score: 0 03/08/19 9:30 AM LEAD BI DEVELOPER documented as of this encounter Care Teams Instructor Painting Relationship Specialty Start Date End Date Abiodun Segura II, MD 100 [place] [address] PCP - General FAMILY PRACTICE 03/09/21 documented as of this encounter
--- OUTSIDE RECORDS SUMMARY | 2024-03-03 01:26 | XMS_ITS | Encounter Summary ---
Author Organization [facility] Address [address] [place] [address]. [place], [place] [address] [place] [address] Care Team Providers Care Wallpaper Hanger Helper Name Role Phone Colton SILVEIRA MD, Abiodun [...] st Contact Info) Description 03/14/2024 11:45 AM LAWN CARETAKER Office Visit [facility]-[address] [address] Marvin Mckeon MD Three [facility] [address] [place] [address] 03/20/2024 11:30 AM LAWN CARETAKER Office Visit [facility] Family Medicine - [address] [phone] Abiodun Segura II, MD [address] [place] [address] documented as of this encounter Visit Diagnoses Not on filedocumented in this encounter Additional Health Concerns Assessment Noted Time PHQ-9 Depression Total Score: 0 03/08/19 9:30 AM LAWN CARETAKER documented as of this encounter Care Teams Wallpaper Hanger Helper Relationship Specialty Start Date End Date Abiodun Segura II, MD 100 [place] [address] PCP - General FAMILY PRACTICE 03/09/21 documented as of this encounter
--- OUTSIDE RECORDS SUMMARY | 2024-03-03 01:26 | XMS_ITS | Encounter Summary ---
Author Organization [facility] Address [address] [place] [address]. [place], [place] [address] [place] [address] Care Team Providers Care Scroll Assembler Name Role Phone Colton SILVEIRA MD, Abiodun Rushing Primary Care Provider Victoriano Langston MD Unavailable [phone] Encounter Details Date Type Department Care Team (Latest Contact Info) Description 08/24/2021 Scan HEALTH INFO SRVCS Scanned, Doc Med Group Social History Tobacco Use Types Packs/Day Years Used Date Smoking Tobacco: Never Smokeless Tobacco: Never Alcohol Use Standard Drinks/Week Comments Yes 0 (1 standard drink = 0.6 oz pur e alcohol) Rarely [facility] Utilities Answer Date Recorded In the past 12 months has [facility] [email or web address], gas, oil, or water [employer] threatened to shut off services in your [...] Recorded Patient Health Questionnaire-2 Score 1 03/05/2023 [facility] [place] of Occupat ional Health - Occupational Stress [...] or making decisions? No 03/06/2023 3:39 PM COMBINATION BUILDING INSPECTOR Teresa Amaya RN Active * Because of a physical, mental, or emotional condition, do you have serious difficulty concentrating, remembering, or making decisions? Answer Entry Date Author Status No 07/09/2021 11:35 PM CDT Servando Sung RN Active documented in this encounter Plan of Treatment Upcoming Encounters Date Type Department Care Team (Late st Contact Info) Description 03/14/2024 11:45 AM COMBINATION BUILDING INSPECTOR Office Visit [facility]-[address] [phone] Marvin Mckeon MD Three [facility] [address] [place] [address] 03/20/2024 11:30 AM COMBINATION BUILDING INSPECTOR Office Visit [facility] Family Medicine - [place] 100 [place] [phone] Abiodun Segura II, MD 100 [place] [address] documented as of this encounter Goals Goal [...] Rule Out 01/08/2022 01/08/2022 01/08/2022 6:50 PM COMBINATION BUILDING INSPECTOR Assessment Noted Time PHQ-9 Depression Total Score: 0 03/08/19 9:30 AM COMBINATION BUILDING INSPECTOR documented as of this encounter Care Teams Scroll Assembler Relationship Specialty Start Date End Date Abiodun Segura II, MD 100 [place] [address] PCP - General FAMILY PRACTICE 03/09/21 [place] [address] [place] [address] PODIATRY/SURGERY 05/05/22 documented as of this encounter
--- OUTSIDE RECORDS SUMMARY | 2024-03-03 01:26 | XMS_ITS | Encounter Summary ---
Author Organization [facility] Address [address] [place] [address]. [place], [place] [address] [place] [address] Care Team Providers Care Armored Truck Driver Name Role Phone Colton SILVEIRA MD, [...] st Contact Info) Description 03/14/2024 11:45 AM NEWS LIBRARY DIRECTOR Office Visit [facility]-[address] [phone] Marvin Mckeon MD Three [facility] [address] [place] [address] 03/20/2024 11:30 AM NEWS LIBRARY DIRECTOR Office Visit [facility] Family Medicine - [address] [phone] Abiodun Segura II, MD [address] [place] [address] documented as of this encounter Visit Diagnoses Not on filedocumented in this encounter Additional Health Concerns Assessment Noted Time PHQ-9 Depression Total Score: 0 03/08/19 9:30 AM NEWS LIBRARY DIRECTOR documented as of this encounter Care Teams Armored Truck Driver Relationship Specialty Start Date End Date Abiodun Segura II, MD 100 [place] [address] PCP - General FAMILY PRACTICE 03/09/21 documented as of this encounter
--- OUTSIDE RECORDS SUMMARY | 2024-03-03 01:26 | XMS_ITS | Encounter Summary ---
Author Organization [facility] Address [address] [place] [address]. [place], [place] [address] [place] [address] Care Team Providers Care Vice President Of Operations Name Role Phone Colton SILVEIRA MD, [...] st Contact Info) Description 03/14/2024 11:45 AM COOK FRY Office Visit [facility]-[address] [address] Marvin Mckeon MD Three [facility] [address] [place], [place] [address] 03/20/2024 11:30 AM COOK FRY Office Visit [facility] Family Medicine - [place] 100 [place] [phone] Abiodun Segura II, MD 100 [place], [place] [address] documented as of this encounter Procedures Procedure Name Priority Date/Time Associated Diagnosis Comments DIABETIC RETINOPATHY EXAM (POSITIVE)(SCAN ORDER) Routine 08/24/2021 documented in this encounter Results * DIABETIC RETINOPATHY EXAM (POSITIVE)(SCAN) (08/24/2021) us Documents Scanned SCANNING Final Result [facility] ONBASE documented in this encounter Visit Diagnoses Not on filedocumented in this encounter Additional Health Concerns Assessment Noted Time PHQ-9 Depression Total Score: 0 03/08/19 22 9:30 AM COOK FRY documented as of this encounter Care Teams Vice President Of Operations Relationship Specialty Start Date End Date Abiodun Segura II, MD 100 [place], [place] [phone] PCP - General FAMILY PRACTICE 03/09/21 documented as of this encounter
--- OUTSIDE RECORDS SUMMARY | 2024-03-03 01:26 | XMS_ITS | Encounter Summary ---
Author Organization [facility] Address [address] [place] [address]. [place], [place] [address] [place] [address] Care Team Providers Care Assistant Spa Director Name Role Phone Colton SILVEIRA MD, [...] st Contact Info) Description 03/14/2024 11:45 AM ARCHITECTURAL DESIGN LECTURER Office Visit [facility]-[address] [address] Marvin Mckeon MD Three [facility] [address] [place] [address] 03/20/2024 11:30 AM ARCHITECTURAL DESIGN LECTURER Office Visit [facility] Family Medicine - [address] [phone] Abiodun Segura II, MD [address] [place] [address] documented as of this encounter Visit Diagnoses Not on filedocumented in this encounter Additional Health Concerns Assessment Noted Time PHQ-9 Depression Total Score: 0 03/08/19 9:30 AM ARCHITECTURAL DESIGN LECTURER documented as of this encounter Care Teams Assistant Spa Director Relationship Specialty Start Date End Date Abiodun Segura II, MD 100 [place] [address] PCP - General FAMILY PRACTICE 03/09/21 documented as of this encounter
--- OUTSIDE RECORDS SUMMARY | 2024-03-03 01:26 | XMS_ITS | Encounter Summary ---
Author Organization [facility] Address [address] [place] [address]. [place] [address] [place] [address] Care Team Providers Care Painter Maintenance Name Role Phone Colton SILVEIRA MD, Yasmin Rushing Primary Care Provider Reason for Visit * Reason Comments Diabetes 3 month f/u Encounter Details Date Type Department Care Team (Late st Contact Info) Description 12/08/2021 2:20 PM CDT Office Visit [facility] Family Medicine - [place] [address] [place] [address] Yasmin Valenzuela II, MD [address] [place] [address] Diabetes (3 month f/u/) Social [...] from the original note were not included. [facility] FAMILY MEDICINE [address] [address] OFFICE FOLLOW UP NOTE Encounter Date: 12/08/2021 [...] osteomyelitis. Patient will also follow-up with her health information managers for her vision in the near future. [...] with long- term current use of insulin ([facility]) HEMOGLOBIN, GLYCOSYLATED COLLECT.CAPILLARY (FNGR,HEEL,EAR) 2. Drug rash 3. Primary hypertension 4. Charcot foot due to diabetes mellitus ([facility]) 5. Vision decreased Plan: Orders Placed This Encounter Medications ??? hydrocortisone (HYTONE) 2.5 % ointment ??? hydrOXYzine (ATARAX) 25 MG tablet ??? triamcinolone (KENALOG) 0.1 % cream 1. Type 2 diabetes mellitus with diabetic neuropathic arthropathy, with long- term current use of insulin ([facility]) As Januvia may be causing [...] 4. Charcot foot due to diabetes mellitus ([facility]) Patient's pain is worsening. She will follow-up with podiatry as scheduled for additional treatmentrecommendations. 5. Vision decreased Patient's vision is stable at this time. She will follow-up with ophthalmology for ongoing monitoring and treatment of her retinopathy. There are no discontinued medications. YASMIN VALENZUELA MD 12/08/2021 Portions of this note were dictated using Erecruit speech recognition software. Occasional wrong wordor sound-alike substitutions may have occurred due to the inherent limitations of voice recognition software. Please read the chart carefully and recognize, using context, where the substitutions may have occurred. documented in this encounter Plan of Treatment Upcoming Encounters Date Type Department Care Team (Late st Contact Info) Description 03/14/2024 11:45 AM RAP ARTIST Office Visit [facility] [phone] Marvin Mckeon MD [address] [facility] [address] [place] [address] 03/20/2024 11:30 AM RAP ARTIST Office Visit [facility] Family Medicine - [place] [phone] Yasmin Valenzuela II, MD [address] [place] [phone] documented as of this encounter Procedures Procedure Name Priority Date/Time Associated Diagnosis Comments COLLECT.CAPILLARY (FNGR,HEEL,EAR) Routine 12/08/2021 2:34 PM CDT Type 2 diabetes mellitus with diabetic neuropathic arthropathy, with long-term current use of insulin ([facility]) documented in this encounter Visit Diagnoses Diagnosis Type 2 diabetes mellitus with diabetic neuropathic arthropathy, with long-term current use of insulin ([facility])- Primary Drug rash Dermatitis due to drugs and medicines taken internally Primary hypertension Unspecified essential hypertension Charcot foot due to diabetes mellitus ([facility]) Type II or unspecified type diabetes mellitus with neurological manifestations, not stated as uncontrolled Vision decreased Unspecified visual loss documented in this encounter Additional Health Concerns Assessment Noted Time PHQ-9 Depression Total Score: 0 03/08/19 9:30 AM RAP ARTIST documented as of this encounter Care Teams Painter Maintenance Relationship Specialty Start Date End Date Yasmin Valenzuela II, MD [address] [place] [phone] PCP - General FAMILY PRACTICE 03/09/21 documented as of this encounter
--- OUTSIDE RECORDS SUMMARY | 2024-03-03 01:27 | XMS_ITS | Encounter Summary ---
Author Organization [facility] Address [address] [place] [address]. [place] [address] [place] [address] Care Team Providers Care Classroom Instructional Aide Name Role Phone Colton SILVEIRA MD, Abiodun Rushing Primary Care Provider Reason for Visit * Reason Onset Date Comments Error 06/29/2021 Encounter Details Date Type Department Care Team (Late st Contact Info) Description 06/29/2021 Telephone [facility] Family Medicine [place] [address] [place] [address] Abiodun Segura II, MD [address] [place] [address] Error Social History Tobacco Use [...] Assessment Author Status No 04/15/2021 11:33 PM INVESTIGATIVE SHOPPER Acti ve * RETIRED Are you blind or do you have serious difficulty seeing, even when wearing glasses? Answer Date of Assessment Author Status No 04/15/2021 11:33 PM INVESTIGATIVE SHOPPER Acti ve * Do you have serious [...] st Contact Info) Description 03/14/2024 11:45 AM INVESTIGATIVE SHOPPER Office Visit [facility] [phone] Marvin Mckeon MD [facility] [address] [place] [address] 03/20/2024 11:30 AM INVESTIGATIVE SHOPPER Office Visit [facility] Family Medicine - [place] [address] [place] [phone] Abiodun Segura II, MD [address] [place] [phone] documented as of this encounter Visit Diagnoses Not on filedocumented in this encounter Additional Health Concerns Assessment Noted Time PHQ-9 Depression Total Score: 0 03/08/19 9:30 AM INVESTIGATIVE SHOPPER documented as of this encounter Care Teams Classroom Instructional Aide Relationship Specialty Start Date End Date Abiodun Segura II, MD [address] [place] [address] PCP - General FAMILY PRACTICE 03/09/21 documented as of this encounter
--- OUTSIDE RECORDS SUMMARY | 2024-03-03 01:27 | XMS_ITS | Encounter Summary ---
Author Organization [facility] Address [address] [place] [address]. 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 Role Phone Colton SILVEIRA MD, Yasmin Rushing Primary Care Provider Reason for Referral * Procedure (Routine) - Closed Specialty Diagnoses / Procedures Referred By Contac t Referred To Contact Procedures Stress test only, exercise [facility] [place] [address] Phone: tel: fax: Referral ID Status Reason Start Date Expiration Date Visits Re quested Visits Authorized [id number] Closed 07/11/2021 08/11/2022 1 1 * Imaging (Emergency) - Closed Specialty Diagnoses / Procedures Referred By Contxavier t Referred To Contact RADIOLOGY Procedures USE ECHOCARDIOGRAM W CON USE ECHOCARDIOGRAM Eduarda Chester MD [address] [place] [address] Phone: tel: [phone] fax: Referral ID Status Reason Start Date Expiration Date Visits Re quested Visits Authorized [id number] Closed 07/09/2021 08/09/2022 1 1 * Imaging (Urgent) - Closed Specialty Diagnoses / Procedures Referred By Contac t Referred To Contact RADIOLOGY Procedures NM PHARM NUC STRESS TEST 1DAY Eduarda Chester MD [address] [place] [address] Phone: tel: [phone] fax: Referral ID Status Reason Start Date Expiration Date Visits Re quested Visits Authorized [id number] Closed 07/09/2021 08/09/2022 1 1 * Imaging (Urgent) - Closed Specialty Diagnoses / Procedures Referred By Contac t Referred To Contact RADIOLOGY Procedures USV JOANIE DUPLEX LOW EXT NOHEMY Eduarda Chester MD [address] [place] [address] Phone: tel: [phone] fax: Referral ID Status Reason Start Date Expiration Date Visits Re quested Visits Authorized [id number] Closed 07/09/2021 08/09/2022 1 1 * Imaging (Urgent) - Closed Specialty Diagnoses / Procedures Referred By Contac t Referred To Contact RADIOLOGY Procedures CTA CHEST Eduarda Chester MD [address] [place] [address] Phone: tel: [phone] fax: Referral ID Status Reason Start Date Expiration Date Visits Re quested Visits Authorized [id number] Closed 07/09/2021 08/09/2022 1 1 Reason for Visit * Reason Comments Chest Pain * Auth/Cert Specialty Diagnoses / Procedures Referred By Contac t Referred To Contact Diagnoses Chest pain Chest pain Procedures GENERAL Referral ID Status Reason Start Date Expiration Date Visits Re quested Visits Authorized [id number] 1 1 Encounter Details Date Type Department Care Team (Late st Contact Info) Description 07/09/2021 3:11 PM CDT - 07/11/2021 1:43 PM CDT Emergency [facility] [place] [address] Janneth Perrin PA [address] [place] [address] Eudarda Chester MD [address] [place] [address] [phone] (Work) Chest Pain Discharge Disposition: [...] stairs? Yes 07/09/2021 11:35 PM EMILEET Servando Sung RN Active * Question Answer [...] Care Everywhere. * Chest Pain Discharge Instructions (Cuban) * Atorvastatin, ADULT (Cuban) documented in this encounter Medications at [...] use of insulin ([facility]) Inject 3 mg into the skin weekly. 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, with long-term current use of insulin ([facility]/HCC) USE 1 STRIP TO CHECK GLUCOSE TWICE DAILY 200 strip 3 2 01/02/20 22 HUMALOG MIX 75/25 (75-25) 100 UNIT/ML SuspensionIndicatio ns:Type 2 diabetes mellitus with retinopathy, with long-term current use of insulin, macular edema presence unspecified, unspecified laterality, unspecified retinopathy severity ([facility]/HCC) Inject 60 units ;subcutaneously [...] use of insulin ([facility]) USE 1 SYRINGE SUBCUTANEOUSLY TWICE DAILY 100 each 5 1 01/02/20 SITagliptin 100 MG tabletIndications:T ype 2 diabetes mellitus with diabetic neuropathic arthropathy, with long-term current use of insulin ([facility]) Take 1 tablet (100 mg [...] deficits. Home Health: none Occupation: disabled Pharmacy: [facility] Financial Concerns: No financial concerns reported PCP/Insurance Plan: [place]/[facility] Discharge needs: denies any needs for discharge. States will be driving self home. States will pickup scripts from [facility] on way home. RNCM will follow case [...] No results for input(s): PH, PCO2, PO2, [id number], BICARBWB, BASEDEFICIT, BASEEXCESS in the [id number] hours. Results for orders placed or performed during the hospital encounter of 08/11/19 URINALYSIS, AUTO, COMPLETE Result Value Ref Range Specimen Type URINE CLEAN CATCH COLOR (U) LIGHT YELLOW TRANSPARENCY CLEAR Specific [place] (U) 1.024 1.001 - 1.030 U PH [...] voiced understanding. This note was dictated with Qriket medical dictation software; misspellings, punctuation errors, omitted [...] No results for input(s): PH, PCO2, PO2, [id number], BICARBWB, BASEDEFICIT, BASEEXCESS in the [id number] hours. Imagining & Other Studies Radiology Results [...] encounter of 07/09/21 ECG 12 lead Narrative [facility] [place] [address] [facility] Test Date: 2021-07-09 Pat Name: TYSON YOUNGBLOOD Department: Room: [facility] Gender: Female Office Manager Executive Assistant: : 1970 Requested By: KRISTEL GAY Order Number: [id number] Reading MD: Brianna Acosta Measurements Intervals [place] Rate: 95 P: 45 AK: 171 QRS: 17 QRSD: 79 T: 32 QT: 360 QTc: 453 Interpretive Statements SINUS RHYTHM WITH OCCASIONAL VENTRICULAR PREMATURE COMPLEXES NONSPECIFIC T-WAVE ABNORMALITY Compared to ECG 04/15/2021 22:40:25 Ventricular premature complex(es) now present T-wave abnormality still present ECG 12 lead Narrative [place] Test Date: 2021-07-09 Pat Name: TYSON YOUNGBLOOD Department: 41 Room: EXAM20 Gender: Female Office Manager Executive Assistant: KHAI : 1970 Requested By: KRISTEL GAY Order Number: [id number] Reading MD: Brianna Acosta Measurements Intervals [place] Rate: 96 P: 36 AK: 176 QRS: 10 QRSD: 86 T: 0 [...] to take wound image using the EPIC [place] thrice but it is not working properly [...] of breath, nausea, diaphoresis. No history of OR or need for cardiac intervention in the [...] encounter of 07/09/21 ECG 12 lead Narrative [facility] [address] Test Date: 2021-07-09 Pat Name: [facility] Department: Room: EXAM20 Gender: Female Office Manager Executive Assistant: : 1970 Requested By: KRISTEL GAY Order Number: [id number] Reading MD: Brianna Acosta Measurements Intervals [place] Rate: 95 P: 45 AK: 171 QRS: 17 QRSD: 79 T: 32 QT: 360 QTc: 453 Interpretive Statements SINUS RHYTHM WITH OCCASIONAL VENTRICULAR PREMATURE COMPLEXES NONSPECIFIC T-WAVE ABNORMALITY Compared to ECG 04/15/2021 22:40:25 Ventricular premature complex(es) now present T-wave abnormality still present ECG 12 lead Narrative [facility] [address] Test Date: 2021-07-09 Pat Name: [facility] Department: Room: EXAM20 Gender: Female Office Manager Executive Assistant: KHAI : 1970 Requested By: KRISTEL GAY Order Number: [id number] Reading MD: Brianna Acosta Measurements Intervals [place] Rate: 96 P: 36 AK: 176 QRS: 10 QRSD: 86 T: 0 [...] STUDIES CTA CHEST Final Result by User, [id number] (07/09 1934) EXAMINATION: CTA CHEST WITH CONTRAST [...] XR CHEST PORTABLE Final Result by User, [id number] (07/09 1533) Examination: Chest Radiograph, 1 view [...] EKG 1510 sinus rhythm rate 95 bpm AK 171 QTc 453 PVCs noted. No STEMI [...] tightness. No cardiac history. * Kristel Gay HIDE MILL MAN - 07/09/2021 3:05 PM CDT [place], [place] EMERGENCY DEPARTMENT ENCOUNTER Medical Screening Examination [...] patient care. 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 Pat.Name: ??FORD, TYSON STEPHANIE ?Pat.ID: ?[id number] ? St.Date: ?? 07/11/2021 ? Refer.MD: ??Doni Chesterkeenan [id number] Exam Time: 8:47:00 AM ? Study Type:MARINO NC HT MUSCLE IMAGE SPECT MULTI Height: ?66in ?Weight: ?186lb ? BSA: ? 1.94 m2 ?Age: ??1970,51Y ? Sex: ? FEMALE ?Sonogrphr: Jonatan Simmons, BLOCK PILER ? Pat. Stat.:Inpatient ? Reason for Study: Chest pain, Shortness of breath History / Clinical: elevated D-dimer, Hypertension, Diabetes, Renal Insufficiency Procedures: ??Nuclear Stress Test with Lexiscan Race: ?-Afghan ? Surgery: ?? Echocardiogram ? ++++++++++++++++++++++++++++++++++++ SUMMARY: [...] ?O2 Sat ? 100 % Max RPP ?61558 ? Symptoms and Complications: Terminated Protocol completed Symptoms ?? Shortness of breath, Abdominal pain, Leg fatigue Complications None Stress ECG Interp No ischemic changes Signed 07/11/2021 01:02 PM Stacie Oconnell M.D. Procedure Note Stacie Oconnell MD - 07/11/2021 Myocardial Perfusion Imaging Pat.Name: TYSON YOUNGBLOOD Pat.ID: [id number] .Date: 07/11/2021 Refer.MD: Eduarda Chester [id number] Exam Time: 8:47:00 AM Study Type:MARINO OR HT MUSCLE IMAGE SPECT MULTI Height: 66in Weight: 186lb BSA: 1.94 m2 Age: 2 1970,51Y Sex: FEMALE Sonogrphr: JOSEPH ChatmanMT Pat. Stat.:Inpatient Reason for Study: Chest pain, Shortness of breath History / Clinical: elevated D-dimer, Hypertension, Diabetes, Renal Insufficiency Procedures: Nuclear Stress Test with Lexiscan Race: -Afghan Surgery: Echocardiogram ++++++++++++++++++++++++++++++++++++ SUMMARY: ++++++++++++++++++++++++++++++++++++ Stress conclusion: [...] 133/80 O2 Sat 100 % Max RPP 39914 Symptoms and Complications: Terminated Protocol completed Symptoms Shortness of breath, Abdominal pain, Leg fatigue Complications None Stress ECG Interp No ischemic changes Signed 07/11/2021 01:02 PM Stacie Oconnell M.D. Eduarda Chester MD NUC MED Final Result * (ABNORMAL) POCT glucose (07/11/2021 11:16 AM CDT) GLUCOSE POC 213(H) 70 - 99 mg/dL 07/11/2021 11:55 AM CDT [facility] 07/11/2021 11:1 6 AM CDT Eduarda Chester MD POCT ORDERABLES - DEVICE Final Result [facility] [address] [place] [address], * (ABNORMAL) COMPREHENSIVE METABOLIC PANEL (07/11/2021 6:55 AM CDT) Pathologist [facility] GLUCOSE 120(H) 70 - 99 MG/DL 07/11/2021 8:29 AM CDT [facility] BUN 16 7 - 18 MG/DL 07/11/2021 8:29 AM CDT [facility] CREATININE S/P/B 0.91 0.55 - 1.02 MG/DL 07/11/2021 8:29 AM CDT [facility] SODIUM S/P/B 138 136 - 145 MMOL/L 07/11/2021 8:29 AM CDT [facility] POTASSIUM S/P/B 4.0 3.5 - 5.1 MMOL/L 07/11/2021 8:29 AM CDT [facility] CHLORIDE S/P/B 106 100 - 108 MMOL/L 07/11/2021 8:29 AM CDT [facility] CO2 24.3 21 - 32 MMOL/L 07/11/2021 8:29 AM CDT [facility] CALCIUM S/P/B 9.1 8.5 - 10.1 MG/DL 07/11/2021 8:29 AM CDT [facility] BILIRUBIN TOTAL S/P/B 0.4 0.2 - 1.2 MG/DL 07/11/2021 8:29 AM CDT [facility] Comment: THIS ASSAY IS NOT RECOMMENDED FOR PATIENTS UNDERGOING TREATMENT WITH ELTROMBOPAG DUE TO THE POTENTIAL FOR FALSELY ELEVATED RESULTS. TOTAL PROTEIN S/P/B 8.1 6.4 - 8.2 G/DL 07/11/2021 8:29 AM CDT [facility] ALBUMIN S/P/B 3.1(L) 3.4 - 5.0 G/DL 07/11/2021 8:29 AM T [facility] AST 13(L) 15 - 37 U/L 07/11/2021 8:29 AM T [facility] ALT 18 14 - 55 U/L 07/11/2021 8:29 AM T [facility] ALKALINE PHOSPHATASE S/P/B 109 50 - 136 U/L 07/11/2021 8:29 AM T [facility] ANION GAP 7.7 5 - 15 MMOL/L 07/11/2021 8:29 AM T [facility] BUN CREATININE RATIO 17.5 6 - 26 07/11/2021 8:29 AM T [facility] A/G RATIO 0.6(L) 1.0 - 2.0 RATIO 07/11/2021 8:29 AM T [facility] GFR ESTIMATE 77(L) >90 ML/MIN/1.7 3 M2 07/11/2021 8:29 AM T [facility] Comment: NOTE: eGFR is not calculated for patients <18 years of age. This is an estimated GFR calculation using the new CKD EPI creatinine equation without race and so does not require a correction factor for race. This estimated GFR should not be used for calculating drug doses. 07/11/2021 6:55 AM CDT Eduarda Chester MD LABORATORY Final Result [facility] [address] [place] [address], [place] [phone] * (ABNORMAL) CBC W/DIFF AUTOMATED (07/11/2021 6:55 AM CDT) [facility] WBC 9.2 4.5 - 11.0 x10'3/uL 07/11/2021 7:49 AM CDT [facility] RBC 4.02(L) 4.20 - 5.40 x10'6/uL 07/11/2021 7:49 AM CDT [facility] HGB 12.2 12.0 - 16.0 G/DL 07/11/2021 7:49 AM CDT [facility] HCT 37.5(L) 38.0 - 48.0 % 07/11/2021 7:49 AM CDT [facility] MCV 93.3 81.0 - 99.0 FL 07/11/2021 7:49 AM CDT [facility] MCH 30.3 27.0 - 31.0 PG 07/11/2021 7:49 AM CDT [facility] MCHC 32.5 32.0 - 36.0 G/DL 07/11/2021 7:49 AM CDT [facility] RDW 13.2 11.5 - 14.5 % 07/11/2021 7:49 AM CDT [facility] PLT 270 130 - 400 x10'3/uL 07/11/2021 7:49 AM CDT [facility] MPV 11.4 9.3 - 12.2 FL 07/11/2021 7:49 AM CDT [facility] DIFFERENTIAL TYPE AUTOMATED DIFFERENTIAL 07/11/2021 7:49 AM CDT [facility] NEUTROPHILS % 56.8 % 07/11/2021 7:49 AM CDT [facility] LYMPHOCYTES % 36.0 % 07/11/2021 7:49 AM CDT [facility] MONOCYTES % 4.8 % 07/11/2021 7:49 AM CDT [facility] EOSINOPHILS 1.6 % 07/11/2021 7:49 AM CDT [facility] BASOPHILS 0.4 % 07/11/2021 7:49 AM CDT [facility] IMMATURE GRANS % 0.4 % 07/12/19 7:49 AM CDT [facility] ABS. NEUTROPHILS TOTAL 5.22 1.80 - 7.70 x10'3/uL 07/11/2021 7:49 AM CDT [facility] ABS. LYMPHOCYTES 3.31 1.00 - 4.80 x10'3/uL 07/11/2021 7:49 AM CDT [facility] ABS. MONOCYTES 0.44 0.24 - 0.86 x10'3/uL 07/11/2021 7:49 AM CDT [facility] ABS. EOSINOPHILS 0.15 0.04 - 0.36 x10'3/uL 07/11/2021 7:49 AM CDT [facility] ABS. BASOPHILS 0.04 0.01 - 0.08 x10'3/uL 07/11/2021 7:49 AM CDT [facility] ABS. IMMATURE GRANULOCYTES 0.04 0.00 - 0.49 x10'3/uL 07/11/2021 7:49 AM CDT [facility] 07/11/2021 6:55 AM CDT us Eduarda Chester MD LABORATORY Final Result [facility] [address] [place] [address], * PHOSPHORUS, INORGANIC PHOSPHATE (07/11/2021 6:55 AM CDT) PHOSPHORUS 4.0 2.5 - 4.9 MG/DL 07/11/2021 8:29 AM CDT [facility] 07/11/2021 6:55 AM CDT us Eduarda Chester MD LABORATORY Final Result [facility] [address] [place] [address], * (ABNORMAL) MAGNESIUM (07/11/2021 6:55 AM CDT) MAGNESIUM 1.7(L) 1.8 - 2.4 MG/DL 07/11/2021 8:29 AM CDT [facility] 07/11/2021 6:55 AM CDT us Eduarda Chester MD LABORATORY Final Result Performing Organization Address City/[facility]/ZIP Co de Phone Number [facility] [address] [place] [address], * (ABNORMAL) D-DIMER, QUANTITATIVE (07/11/2021 6:55 AM CDT) D-DIMER 929(HH) 0 - 500 ng{FEU}/mL 07/11/2021 8:09 AM CDT [facility] Comment: D-Dimer values less than [...] DDIMR called 07/11/2021 08:10 AM to ABENA [employer] A ([id number]/MARIE WILD) by [id number]. Read Back: Yes 07/11/2021 6:55 AM CDT us Eduarda Chester MD LABORATORY Final Result Performing Organization Address [facility] de Phone Number [facility] [address] [place] [address], * TROPONIN, QUANT (07/11/2021 6:55 AM CDT) TROPONIN I HIGH SENSITIVITY 6 <54 ng/L 07/11/2021 8:29 AM CDT [facility] Comment: HIGH DOSES OF BIOTIN, TROPONIN-SPECIFIC AUTOANTIBODIES, AND ANTIBODY THERAPY CONTAINING HAMA MAY INTERFERE WITH THIS TEST RESULT. CORRELATION TO CLINICAL HISTORY AND PRESENTATION RECOMMENDED. 07/11/2021 6:55 AM CDT us Eduarda Chester MD LABORATORY Final Result Performing Organization Address [facility] de Phone Number [facility] [address] [place] [address], [place] [phone] * (ABNORMAL) POCT glucose (07/11/2021 5:53 AM CDT) GLUCOSE POC 142(H) 70 - 99 mg/dL 07/11/2021 5:57 AM CDT [facility] 07/11/2021 5:53 AM CDT us Eduarda Chester MD POCT ORDERABLES - DEVICE Final Result Performing Organization Address [facility] de Phone Number [facility] [address] [place] [address], * (ABNORMAL) POCT glucose (07/10/2021 8:34 PM CDT) GLUCOSE POC 169(H) 70 - 99 mg/dL 07/10/2021 8:41 PM CDT [facility] 07/10/2021 8:34 PM CDT us Eduarda Chester MD POCT ORDERABLES - DEVICE Final Result [facility] [address] [place] [address], [place] [phone] * (ABNORMAL) POCT glucose (07/10/2021 3:38 PM CDT) GLUCOSE POC 242(H) 70 - 99 mg/dL 07/10/2021 4:23 PM CDT [facility] 07/10/2021 3:38 PM CDT us Eduarda Chester MD POCT ORDERABLES - DEVICE Final Result [facility] [address] [place] [address], [place] [phone] * TROPONIN, QUANT (07/10/2021 2:34 PM CDT) TROPONIN I HIGH SENSITIVITY 5 <54 ng/L 07/10/2021 3:49 PM CDT [facility] Comment: HIGH DOSES OF BIOTIN, TROPONIN-SPECIFIC AUTOANTIBODIES, AND ANTIBODY THERAPY CONTAINING HAMA MAY INTERFERE WITH THIS TEST RESULT. CORRELATION TO CLINICAL HISTORY AND PRESENTATION RECOMMENDED. 07/10/2021 2:34 PM CDT Eduarda Chester MD LABORATORY Final Result [facility] [address] [place] [address], * ECG 12 lead (07/10/2021 2:18 PM CDT) 07/10/2021 2:18 PM CDT Narrative [facility] ([facility] - 07/10/2021 10:19 PM CDT ?[facility] ? [address] [facility] [place] ? Test Date: ?2021-07-10 Pat Name: ? TYSON YOUNGBLOOD ?Department: ?? 40 ? Room: ? [id number] Gender: ? Female ? Office Manager Executive Assistant: ?? [phone] : ?1970 ? Requested By: EDUARDA CHESTER Order Number: [id number] ? Reading : ?? Brianna Acosta ? Measurements Intervals ?[place] ? Rate: ? 88 ? P: ?49 AK: ? 179 ?QRS: ?11 QRSD: ? 83 ? T: ?-75 QT: ? 304 ? QTc: ?369 ? Interpretive Statements SINUS RHYTHM WITH FREQUENT VENTRICULAR PREMATURE COMPLEXES LOW QRS VOLTAGE IN PRECORDIAL LEADS NONSPECIFIC T-WAVE ABNORMALITY Compared to ECG 07/10/2021 05:27:01 Low QRS voltage now present T-wave abnormality still present Procedure Note Brianna Acosta MD - 07/10/2021 [facility] [address] [facility] Test Date: 2021-07-10 Pat Name: TYSON YOUNGBLOOD Department: 40 Room: [facility] Gender: Female Office Manager Executive Assistant: [id number] : 1970 Requested By: EDUARDA CHESTER Order Number: [id number] Reading MD: Brianna Acosta Measurements Intervals [place] Rate: 88 P: 49 AK: 179 QRS: 11 QRSD: 83 T: -75 QT: 304 QTc: 369 Interpretive Statements SINUS RHYTHM WITH FREQUENT VENTRICULAR PREMATURE COMPLEXES LOW QRS VOLTAGE IN PRECORDIAL LEADS NONSPECIFIC T-WAVE ABNORMALITY Compared to ECG 07/10/2021 05:27:01 Low QRS voltage now present T-wave abnormality still present Eduarda Chester MD ECG ORDERABLES Final Result Performing Organization Address City/[facility]/ZIP Co de Phone Number [facility] * (ABNORMAL) POCT glucose (07/10/2021 11:03 AM CDT) [facility] GLUCOSE POC 149(H) 70 - 99 mg/dL 07/10/2021 3:49 PM CDT [facility] 07/10/2021 11:0 3 AM CDT Eduarda Chester MD POCT ORDERABLES - DEVICE Final Result Performing Organization Address [facility] de Phone Number [facility] [address] [place] [address], * USE ECHOCARDIOGRAM W CON (07/10/2021 10:37 AM CDT) Anatomical Region Laterality Modality NA Echocardiogram 07/10/2021 8:23 AM CDT Narrative 07/10/2021 12:36 PM CDT ?Echocardiography Report Pat.Name: ??TYSON YOUNGBLOOD ?Pat.ID: ?[id number] ? St.Date: ?? 07/10/2021 ? Exam Time: [...] help determine presence of intracardiac shunting. Race: ?-Afghan ? ++++++++++++++++++++++++++++++++++++ SUMMARY: ++++++++++++++++++++++++++++++++++++ The left ventricular [...] ? Right Ventricle ??27.8 mm ?? Major [place] ?59.9 mm ?MMODE TA ?? Tricuspid Annul ??14.2 mm ? Signed 07/10/2021 12:36 PM Brianna Acosta M.D. Procedure Note Brianna Acosta MD - 07/10/2021 Echocardiography Report Pat.Name: TYSON YOUNGBLOOD Pat.ID: [id number] .Date: 07/10/2021 Exam Time: 8:23:00 AM Study Type:ECHO WITH CARDIAC DOPPLER COMP Height: 66in Weight: 188.61lb BSA: 1.95 m2 Age: 2 1970,51Y Sex: FEMALE BP: 125/81 HR: 87 bpm Sonogrphr: KALINA LOPEZ [facility] Reason for Study: Chest pain History / Clinical: elevated D-dimer, Hypertension Procedures: 2D, M-mode, Doppler, Color Flow, Definity was used to enhance endocardial definition., Intraveneous saline contrast was used to help determine presence of intracardiac shunting. Race: -Afghan ++++++++++++++++++++++++++++++++++++ SUMMARY: ++++++++++++++++++++++++++++++++++++ The left ventricular systolic [...] 37.7 mm Right Ventricle 27.8 mm Major [place] 59.9 mm MMODE TA Tricuspid Annul 14.2 mm Signed 07/10/2021 12:36 PM Brianna Acosta M.D. Eduarda Chester MD ECHO Final Result * (ABNORMAL) POCT glucose (07/10/2021 5:37 AM CDT) GLUCOSE POC 189(H) 70 - 99 mg/dL 07/10/2021 5:40 AM CDT [facility] 07/10/2021 5:37 AM CDT Eduarda Chester MD POCT ORDERABLES - DEVICE Final Result [facility] [address] [place] [address], * ECG 12 lead (07/10/2021 5:27 AM CDT) 07/10/2021 5:27 AM CDT Narrative [facility] ([facility] - 07/10/2021 10:25 AM CDT ?[facility] ? [address] [facility] ? Test Date: ?2021-07-10 Pat Name: ? TYSON YOUNGBLOOD ?Department: ?? 40 ? Room: ? C06608 Gender: ? Female ? Office Manager Executive Assistant: ?? [phone] : ?1970 ? Requested By: EDUARDA CHESTER Order Number: [id number] ? Reading MD: ?? Brianna Acosta ? Measurements Intervals ?[place] ? Rate: ? 86 ? P: ?45 AK: ? 207 ?QRS: ?19 QRSD: ? 85 ? T: ?32 QT: ? 378 ? QTc: ?454 ? Interpretive Statements SINUS RHYTHM WITH OCCASIONAL VENTRICULAR PREMATURE COMPLEXES NONSPECIFIC T-WAVE ABNORMALITY Compared to ECG 07/10/2021 00:19:31 No significant changes Procedure Note Brianna Acosta MD - 07/10/[address] Test Date: 2021-07-10 Pat Name: TYSON YOUNGBLOOD Department: 40 Room: [facility] Gender: Female Office Manager Executive Assistant: [id number] : 1970 Requested By: EDUARDA CHESTER Order Number: [id number] Reading MD: Brianna Acosta Measurements Intervals [place] Rate: 86 P: 45 AK: 207 QRS: 19 QRSD: 85 T: 32 QT: 378 QTc: 454 Interpretive Statements SINUS RHYTHM WITH OCCASIONAL VENTRICULAR PREMATURE COMPLEXES NONSPECIFIC T-WAVE ABNORMALITY Compared to ECG 07/10/2021 00:19:31 No significant changes Eduarda Chester MD ECG ORDERABLES Final Result Performing Organization Address City/[facility]/ZIP Co de Phone Number [facility] ([facility] RAD * TROPONIN, QUANT (07/10/2021 5:23 AM CDT) [facility] TROPONIN I HIGH SENSITIVITY 7 <54 ng/L 07/10/2021 6:09 AM CDT [facility] Comment: HIGH DOSES OF BIOTIN, TROPONIN-SPECIFIC AUTOANTIBODIES, AND ANTIBODY THERAPY CONTAINING HAMA MAY INTERFERE WITH THIS TEST RESULT. CORRELATION TO CLINICAL HISTORY AND PRESENTATION RECOMMENDED. 07/10/2021 5:23 AM CDT Eduarda Chester MD LABORATORY Final Result [facility] [address] [place] [address], [place] [phone] * (ABNORMAL) D-DIMER, QUANTITATIVE (07/10/2021 5:23 AM CDT) Pathologist [facility] D-DIMER 1,022(HH) 0 - 500 ng{FEU}/mL 07/10/2021 7:59 AM CDT [facility] Comment: D-Dimer values less than [...] Call: DDIMR called 07/10/2021 08:00 AM to sp[facility]it [facility] ([id number][facility] by [id number]. Read Back: Yes 07/10/2021 5:23 AM CDT Eduarda Chester MD LABORATORY Final Result [facility] [address] [place] [address], * (ABNORMAL) LIPID PANEL (07/10/2021 5:23 AM CDT) CHOLESTEROL 150 <200 MG/DL 07/10/2021 6:09 AM CDT [facility] TRIGLYCERIDES 333(H) <150 MG/DL 07/10/2021 6:09 AM CDT [facility] HDL 31(L) >40.0 MG/DL 07/10/2021 6:09 AM CDT [facility] LDL (CALCULATED) 52 <100 MG/DL 07/10/2021 6:09 AM CDT [facility] NON HDL CHOLESTEROL 119 <130 MG/DL 07/10/2021 6:09 AM CDT [facility] CHOL/HDL RATIO 4.8(H) 0.0 - 4.5 07/10/2021 6:09 AM CDT [facility] VLDL CALCULATION 67(H) 5 - 55 MG/DL 07/10/2021 6:09 AM CDT [facility] LIPID INTERPRETATION 07/10/2021 6:09 AM CDT [facility] Comment: [facility] REPORT RECOMMENDATIONS: [...] CDT Eduarda Chester MD LABORATORY Final Result [facility] [address] [place] [address], [place] [phone] * (ABNORMAL) MAGNESIUM (07/10/2021 5:23 AM CDT) MAGNESIUM 1.6(L) 1.8 - 2.4 MG/DL 07/10/2021 6:09 AM CDT [facility] 07/10/2021 5:23 AM CDT Eduarda Chester MD LABORATORY Final Result Performing Organization Address [facility] Co de Phone Number [facility] [address] [place] [address], [place] [phone] * (ABNORMAL) COMPREHENSIVE METABOLIC PANEL (07/10/2021 5:23 AM CDT) GLUCOSE 183(H) 70 - 99 MG/DL 07/10/2021 6:09 AM CDT [facility] BUN 13 7 - 18 MG/DL 07/10/2021 6:09 AM CDT [facility] CREATININE S/P/B 0.82 0.55 - 1.02 MG/DL 07/10/2021 6:09 AM CDT [facility] SODIUM S/P/B 139 136 - 145 MMOL/L 07/10/2021 6:09 AM CDT [facility] POTASSIUM S/P/B 3.4(L) 3.5 - 5.1 MMOL/L 07/10/2021 6:09 AM CDT [facility] CHLORIDE S/P/B 106 100 - 108 MMOL/L 07/10/2021 6:09 AM CDT [facility] CO2 26.9 21 - 32 MMOL/L 07/10/2021 6:09 AM T [facility] CALCIUM S/P/B 8.6 8.5 - 10.1 MG/DL 07/10/2021 6:09 AM T [facility] BILIRUBIN TOTAL S/P/B 0.3 0.2 - 1.2 MG/DL 07/10/2021 6:09 AM T [facility] Comment: THIS ASSAY IS NOT RECOMMENDED FOR PATIENTS UNDERGOING TREATMENT WITH ELTROMBOPAG DUE TO THE POTENTIAL FOR FALSELY ELEVATED RESULTS. TOTAL PROTEIN S/P/B 7.5 6.4 - 8.2 G/DL 07/10/2021 6:09 AM T [facility] ALBUMIN S/P/B 2.8(L) 3.4 - 5.0 G/DL 07/10/2021 6:09 AM T [facility] AST 16 15 - 37 U/L 07/10/2021 6:09 AM [facility] ALT 20 14 - 55 U/L 07/10/2021 6:09 AM [facility] ALKALINE PHOSPHATASE S/P/B 101 50 - 136 U/L 07/10/2021 6:09 AM T [facility] ANION GAP 6.1 5 - 15 MMOL/L 07/10/2021 6:09 AM T [facility] BUN CREATININE RATIO 16.0 6 - 26 07/10/2021 6:09 AM T [facility] A/G RATIO 0.6(L) 1.0 - 2.0 RATIO 07/10/2021 6:09 AM [facility] GFR ESTIMATE 87(L) >90 ML/MIN/1.7 3 M2 07/10/2021 6:09 AM T [facility] Comment: NOTE: eGFR is [...] [facility]/ZIP Co de Phone Number [facility] [address] [place] [address], [place] [phone] * PARTIAL THROMBOPLASTIN TIME,PTT (07/10/2021 5:23 AM CDT) PTT 32.1 25.1 - 36.5 SEC 07/10/2021 6:03 AM CDT [facility] 07/10/2021 5:23 AM CDT us Eduarda Chester MD LABORATORY Final Result Performing Organization Address [facility] Co de Phone Number [facility] [address] [place] [address], [place] [phone] * PROTHROMBIN TIME, VENOUS (07/10/2021 5:23 AM CDT) PROTIME 12.9 10.2 - 12.9 SEC 07/10/2021 6:03 AM CDT [facility] INR 1.1 07/10/2021 6:03 AM CDT [facility] Comment: Recommended INR Therapeutic Goals: ??2.0-3.0 Routine Therapy ??2.5-3.5 Mechanical Prosthetic Valves (High Risk) 07/10/2021 5:23 AM CDT us Eduarda Chester MD LABORATORY Final Result [facility] [address] [place] [address], [place] [phone] * (ABNORMAL) CBC W/DIFF AUTOMATED (07/10/2021 5:23 AM CDT) [facility] WBC 9.6 4.5 - 11.0 x10'3/uL 07/10/2021 6:08 AM CDT [facility] RBC 3.50(L) 4.20 - 5.40 x10'6/uL 07/10/2021 6:08 AM CDT [facility] HGB 10.6(L) 12.0 - 16.0 G/DL 07/10/2021 6:08 AM CDT [facility] HCT 31.6(L) 38.0 - 48.0 % 07/10/2021 6:08 AM CDT [facility] MCV 90.3 81.0 - 99.0 FL 07/10/2021 6:08 AM CDT [facility] MCH 30.3 27.0 - 31.0 PG 07/10/2021 6:08 AM CDT [facility] MCHC 33.5 32.0 - 36.0 G/DL 07/10/2021 6:08 AM CDT [facility] RDW 13.3 11.5 - 14.5 % 07/10/2021 6:08 AM CDT [facility] PLT 249 130 - 400 x10'3/uL 07/10/2021 6:08 AM CDT [facility] MPV 11.4 9.3 - 12.2 FL 07/10/2021 6:08 AM CDT [facility] DIFFERENTIAL TYPE AUTOMATED DIFFERENTIAL 07/10/2021 6:08 AM CDT [facility] NEUTROPHILS % 52.7 % 07/10/2021 6:08 AM CDT [facility] LYMPHOCYTES % 41.3 % 07/10/2021 6:08 AM CDT [facility] MONOCYTES % 4.5 % 07/10/2021 6:08 AM CDT [facility] EOSINOPHILS 0.7 % 07/10/2021 6:08 AM CDT [facility] BASOPHILS 0.5 % 07/10/2021 6:08 AM CDT [facility] IMMATURE GRANS % 0.3 % 07/11/19 6:08 AM CDT [facility] ABS. NEUTROPHILS TOTAL 5.05 1.80 - 7.70 x10'3/uL 07/10/2021 6:08 AM CDT [facility] ABS. LYMPHOCYTES 3.96 1.00 - 4.80 x10'3/uL 07/10/2021 6:08 AM CDT [facility] ABS. MONOCYTES 0.43 0.24 - 0.86 x10'3/uL 07/10/2021 6:08 AM CDT [facility] ABS. EOSINOPHILS 0.07 0.04 - 0.36 x10'3/uL 07/10/2021 6:08 AM CDT [facility] ABS. BASOPHILS 0.05 0.01 - 0.08 x10'3/uL 07/10/2021 6:08 AM CDT [facility] ABS. IMMATURE GRANULOCYTES 0.03 0.00 - 0.49 x10'3/uL 07/10/2021 6:08 AM T [facility] 07/10/2021 5:23 AM CDT Eduarda Chester MD LABORATORY Final Result [facility] [address] [place] [address], * TROPONIN, QUANT (07/10/2021 12:47 AM CDT) TROPONIN I HIGH SENSITIVITY 5 <54 ng/L 07/10/2021 1:26 AM CDT [facility] Comment: HIGH DOSES OF BIOTIN, TROPONIN-SPECIFIC AUTOANTIBODIES, AND ANTIBODY THERAPY CONTAINING HAMA MAY INTERFERE WITH THIS TEST RESULT. CORRELATION TO CLINICAL HISTORY AND PRESENTATION RECOMMENDED. 07/10/2021 12:4 7 AM CDT Eduarda Chester MD LABORATORY Final Result Performing Organization Address [facility] de Phone Number [address] [address], * ECG 12 lead (07/10/2021 12:19 AM CDT) 07/10/2021 12:1 9 AM CDT Narrative [facility] ([facility]) RAD - 07/10/2021 10:25 AM CDT ?[facility] ? [address] [facility] ? Test Date: ?2021-07-10 Pat Name: ? TYSON FORD ?Department: ?? 40 ? Room: ? [id number] Gender: ? Female ? Office Manager Executive Assistant: ?? [id number] : ?1970 ? Requested By: MAAROKEENAN HINDU Order Number: [id number] ? Reading MD: ?? Brianna Dave ? Measurements Intervals ?[place] ? Rate: ? 89 ? P: ?48 AK: ? 193 ?QRS: ?26 QRSD: ? 90 ? T: ?-10 QT: ? 378 ? QTc: ?461 ? Interpretive Statements SINUS RHYTHM WITH FREQUENT VENTRICULAR PREMATURE COMPLEXES NONSPECIFIC T-WAVE ABNORMALITY ABNORMAL RHYTHM ECG Compared to ECG 07/09/2021 17:11:30 No significant changes Procedure Note Brianna Acosta MD - 07/10/[address] Test Date: 2021-07-10 Pat Name: TYSON YOUNGBLOOD Department: 40 Room: [id number] Gender: Female Office Manager Executive Assistant: [id number] : 1970 Requested By: EDUARDA CHESTER Order Number: [id number] Reading MD: Brianna Acosta Measurements Intervals [place] Rate: 89 P: 48 AK: 193 QRS: 26 QRSD: 90 T: -10 QT: 378 QTc: 461 Interpretive Statements SINUS RHYTHM WITH FREQUENT VENTRICULAR PREMATURE COMPLEXES NONSPECIFIC T-WAVE ABNORMALITY ABNORMAL RHYTHM ECG Compared to ECG 07/09/2021 17:11:30 No significant changes Eduarda Chester MD ECG ORDERABLES Final Result Performing Organization Address City/[facility]/ZIP Co de Phone Number [facility] ([facility]) RAD * (ABNORMAL) POCT glucose (07/09/2021 11:35 PM CDT) GLUCOSE POC 173(H) 70 - 99 mg/dL 07/09/2021 11:39 PM CDT [facility] 07/09/2021 11:3 5 PM CDT Eduarda Chester MD POCT ORDERABLES - DEVICE Final Result Performing Organization Address [facility] Co de Phone Number [facility] [address] [place] [address], [place] [phone] * USV JOANIE DUPLEX LOW EXT NOHEMY (07/09/2021 8:45 PM CDT) Anatomical Region Laterality Modality Extremity Vascular Ultraso und 07/09/2021 8:29 PM CDT Narrative 07/12/2021 1:05 AM CDT ?VENOUS DUPLEX IMAGING ?BILATERAL LOWER EXTREMITY ? VASCULAR LAB Pat.Name: ??TYSON YOUNGBLOOD ?Pat.ID: ?[id number] ? St.Date: ?? 07/09/2021 ? Refer.MD: ??[id number], Elissa gilman Exam Time: 8:29:00 PM ? [...] EXTREMITY VASCULAR LAB Pat.Name: TYSON YOUNGBLOOD Pat.ID: [id number] .Date: 07/09/2021 : [id number], Elissa gilman Exam Time: 8:29:00 PM Study [...] AM Joel Santiago M.D. Eduarda Chester MD [facility] Final Result * CTA CHEST (07/09/2021 7:26 [...] - 500 ng{FEU}/mL 07/09/2021 6:46 PM CDT [facility] Comment: D-Dimer values less than [...] called 07/09/2021 06:49 PM to EMERGENCY ROOM ([id number]/FELISHA [place]) by [id number]. 07/09/2021 6:13 PM CDT Janneth MARIE LABORATORY Final Result [facility] [address] [place] [address], [place] [phone] * TROPONIN, QUANT (07/09/2021 6:13 PM CDT) TROPONIN I HIGH SENSITIVITY 5 <54 ng/L 07/09/2021 6:49 PM CDT [facility] Comment: HIGH DOSES OF BIOTIN, TROPONIN-SPECIFIC AUTOANTIBODIES, AND ANTIBODY THERAPY CONTAINING HAMA MAY INTERFERE WITH THIS TEST RESULT. CORRELATION TO CLINICAL HISTORY AND PRESENTATION RECOMMENDED. 07/09/2021 6:13 PM CDT Kristel Gay [facility] LABORATORY Final Result [facility] [address] [place] [address], * ECG 12 lead (07/09/2021 5:11 PM CDT) 07/09/2021 5:11 PM CDT Narrative [facility] ([facility] - 07/09/2021 6:08 PM CDT ?[facility] ? [address] [facility] ? Test Date: ?2021-07-09 Pat Name: ? TYSON FORD ?Department: ?? 41 ? Room: ? EXAM20 Gender: ? Female ? Office Manager Executive Assistant: ?? AR : ?1970 ? Requested By: KRISTEL SUNSHINER Order Number: [id number] ? Reading : ?? Brianna Acosta ? Measurements Intervals ?[place] ? Rate: ? 96 ? P: ?36 AK: ? 176 ?QRS: ?10 QRSD: ? 86 ? T: ?0 QT: ? 298 ? QTc: ?376 ? Interpretive Statements SINUS RHYTHM WITH FREQUENT VENTRICULAR PREMATURE COMPLEXES MODERATE VOLTAGE CRITERIA FOR LVH, CONSIDER NORMAL VARIANT NONSPECIFIC T-WAVE ABNORMALITY ABNORMAL RHYTHM ECG Compared to ECG 07/09/2021 15:10:55 No significant changes Procedure Note Brianna Acosta MD - 07/09/[address] Test Date: 2021-07-09 Pat Name: TYSON YOUNGBLOOD Department: 41 Room: [facility] Gender: Female Office Manager Executive Assistant: KHAI : 1970 Requested By: KRISTEL GAY Order Number: [id number] Reading MD: Brianna Acosta Measurements Intervals [place] Rate: 96 P: 36 AK: 176 QRS: 10 QRSD: 86 T: 0 QT: 298 QTc: 376 Interpretive Statements SINUS RHYTHM WITH FREQUENT VENTRICULAR PREMATURE COMPLEXES MODERATE VOLTAGE CRITERIA FOR LVH, CONSIDER NORMAL VARIANT NONSPECIFIC T-WAVE ABNORMALITY ABNORMAL RHYTHM ECG Compared to ECG 07/09/2021 15:10:55 No significant changes us Kristel Gay [employer] ECG ORDERABLES Final Result Performing Organization Address [facility]/ZIP Co de Phone Number [facility] RAD * TSH W/REFLEX (07/09/2021 3:45 PM CDT) TSH 1.990 0.358 - 3.74 uIU/ML 07/10/2021 12:02 AM CDT [facility] Comment: HIGH DOSES OF BIOTIN MAY INTERFERE WITH THIS TEST RESULT. CORRELATION TO CLINICAL HISTORY AND PRESENTATION RECOMMENDED. FREE T4 NOT INDICATED 07/09/2021 3:45 PM CDT us Eduarda Chester MD LABORATORY Final Result [facility] [address] [place] [address], [place] [phone] * (ABNORMAL) HEMOGLOBIN, GLYCATED (07/09/2021 3:45 PM CDT) HGB A1C 7.8(H) <5.7 % 07/09/2021 11:58 PM CDT [facility] Comment: ADA GUIDELINES 2010 5.7 TO 6.4% INCREASED RISK OF DIABETES > OR = 6.5% CONSISTENT WITH DIABETES ESTIMATED AVG GLUCOSE 177 mg/dL 07/09/2021 11:58 PM CDT [facility] 07/09/2021 3:45 PM CDT Eduarda Chester MD LABORATORY Final Result Performing Organization Address City/[facility]/ZIP Co de Phone Number [facility] [address] [place] [address], [place] [phone] * TROPONIN, QUANT (07/09/2021 3:45 PM CDT) TROPONIN I HIGH SENSITIVITY 5 <54 ng/L 07/09/2021 4:42 PM CDT [facility] Comment: HIGH DOSES OF BIOTIN, TROPONIN-SPECIFIC AUTOANTIBODIES, AND ANTIBODY THERAPY CONTAINING HAMA MAY INTERFERE WITH THIS TEST RESULT. CORRELATION TO CLINICAL HISTORY AND PRESENTATION RECOMMENDED. 07/09/2021 3:45 PM CDT Kristel Gay APRN LABORATORY Final Result Performing Organization Address [facility] Co de Phone Number [facility] [address] [place] [address], [place] [phone] * (ABNORMAL) COMPREHENSIVE METABOLIC PANEL (07/09/2021 3:45 PM CDT) GLUCOSE 167(H) 70 - 99 MG/DL 07/09/2021 4:42 PM CDT [facility] BUN 15 7 - 18 MG/DL 07/09/2021 4:42 PM CDT [facility] CREATININE S/P/B 1.18(H) 0.55 - 1.02 MG/DL 07/09/2021 4:42 PM CDT [facility] SODIUM S/P/B 139 136 - 145 MMOL/L 07/09/2021 4:42 PM CDT [facility] POTASSIUM S/P/B 3.7 3.5 - 5.1 MMOL/L 07/09/2021 4:42 PM CDT [facility] CHLORIDE S/P/B 104 100 - 108 MMOL/L 07/09/2021 4:42 PM CDT [facility] CO2 29.5 21 - 32 MMOL/L 07/09/2021 4:42 PM CDT [facility] CALCIUM S/P/B 9.1 8.5 - 10.1 MG/DL 07/09/2021 4:42 PM CDT [facility] BILIRUBIN TOTAL S/P/B 0.4 0.2 - 1.2 MG/DL 07/09/2021 4:42 PM CDT [facility] Comment: THIS ASSAY IS NOT RECOMMENDED FOR PATIENTS UNDERGOING TREATMENT WITH ELTROMBOPAG DUE TO THE POTENTIAL FOR FALSELY ELEVATED RESULTS. TOTAL PROTEIN S/P/B 8.9(H) 6.4 - 8.2 G/DL 07/09/2021 4:42 PM CDT [facility] ALBUMIN S/P/B 3.5 3.4 - 5.0 G/DL 07/09/2021 4:42 PM CDT [facility] AST 19 15 - 37 U/L 07/09/2021 4:42 PM CDT [facility] ALT 19 14 - 55 U/L 07/09/2021 4:42 PM CDT [facility] ALKALINE PHOSPHATASE S/P/B 120 50 - 136 U/L 07/09/2021 4:42 PM CDT [facility] ANION GAP 5.5 5 - 15 MMOL/L 07/09/2021 4:42 PM CDT [facility] BUN CREATININE RATIO 12.7 6 - 26 07/09/2021 4:42 PM CDT [facility] A/G RATIO 0.6(L) 1.0 - 2.0 RATIO 07/09/2021 4:42 PM CDT [facility] GFR ESTIMATE 56(L) >90 ML/MIN/1.7 3 M2 07/09/2021 4:42 PM CDT [facility] Comment: NOTE: eGFR is not calculated for patients <18 years of age. This is an estimated GFR calculation using the new CKD EPI creatinine equation without race and so does not require a correction factor for race. This estimated GFR should not be used for calculating drug doses. 07/09/2021 3:45 PM CDT us Kristel Gay [facility] Final Result [facility] [address] [place] [address], [place] [phone] * (ABNORMAL) CBC W/DIFF AUTOMATED (07/09/2021 3:45 PM CDT) WBC 10.6 4.5 - 11.0 x10'3/uL 07/09/2021 4:08 PM CDT [facility] RBC 3.93(L) 4.20 - 5.40 x10'6/uL 07/09/2021 4:08 PM CDT [facility] HGB 12.0 12.0 - 16.0 G/DL 07/09/2021 4:08 PM CDT [facility] HCT 35.2(L) 38.0 - 48.0 % 07/09/2021 4:08 PM CDT [facility] MCV 89.6 81.0 - 99.0 FL 07/09/2021 4:08 PM CDT [facility] MCH 30.5 27.0 - 31.0 PG 07/09/2021 4:08 PM CDT [facility] MCHC 34.1 32.0 - 36.0 G/DL 07/09/2021 4:08 PM CDT [facility] RDW 13.2 11.5 - 14.5 % 07/09/2021 4:08 PM CDT [facility] PLT 282 130 - 400 x10'3/uL 07/09/2021 4:08 PM CDT [facility] MPV 11.2 9.3 - 12.2 FL 07/09/2021 4:08 PM CDT [facility] DIFFERENTIAL TYPE AUTOMATED DIFFERENTIAL 07/09/2021 4:08 PM CDT [facility] NEUTROPHILS % 64.1 % 07/09/2021 4:08 PM CDT [facility] LYMPHOCYTES % 29.6 % 07/09/2021 4:08 PM CDT [facility] MONOCYTES % 4.6 % 07/09/2021 4:08 PM CDT [facility] EOSINOPHILS 0.6 % 07/09/2021 4:08 PM CDT [facility] BASOPHILS 0.5 % 07/09/2021 4:08 PM CDT [facility] IMMATURE GRANS % 0.6 % 07/10/19 4:08 PM CDT [facility] ABS. NEUTROPHILS TOTAL 6.78 1.80 - 7.70 x10'3/uL 07/09/2021 4:08 PM CDT [facility] ABS. LYMPHOCYTES 3.13 1.00 - 4.80 x10'3/uL 07/09/2021 4:08 PM CDT [facility] ABS. MONOCYTES 0.49 0.24 - 0.86 x10'3/uL 07/09/2021 4:08 PM CDT [facility] ABS. EOSINOPHILS 0.06 0.04 - 0.36 x10'3/uL 07/09/2021 4:08 PM CDT [facility] ABS. BASOPHILS 0.05 0.01 - 0.08 x10'3/uL 07/09/2021 4:08 PM CDT [facility] ABS. IMMATURE GRANULOCYTES 0.06 0.00 - 0.49 x10'3/uL 07/09/2021 4:08 PM CDT [facility] 07/09/2021 3:45 PM CDT us Kristel Gay [facility] Final Result Performing Organization Address City/State/[facility] Co de Phone Number [facility] [address] [place] [address], [place] [phone] * XR CHEST PORTABLE (07/09/2021 3:30 PM [...] Pate MD, 07/09/2021 3:31 PM Kristel [facility] Final Result * ECG 12 lead (07/09/2021 3:10 PM CDT) 07/09/2021 3:10 PM CDT Narrative [facility]- NENOHardikJensen BRUNO (ABENA) RAD - 07/09/2021 6:08 PM CDT ?[facility] ? [address] [place] ? Test Date: ?2021-07-09 Pat Name: ? TYSON YOUNGBLOOD ?Department: ?? 41 ? Room: ? EXAM20 Gender: ? Female ? Office Manager Executive Assistant: ?? : ?1970 ? Requested By: KRISTEL SUNSHINER Order Number: [id number] ? Reading MD: ?? Brianna Dave ? Measurements Intervals ?[place] ? Rate: ? 95 ? P: ?45 AK: ? 171 ?QRS: ?17 QRSD: ? 79 ? T: ?32 QT: ? 360 ? QTc: ?453 ? Interpretive Statements SINUS RHYTHM WITH OCCASIONAL VENTRICULAR PREMATURE COMPLEXES NONSPECIFIC T-WAVE ABNORMALITY Compared to ECG 04/15/2021 22:40:25 Ventricular premature complex(es) now present T-wave abnormality still present Procedure Note Brianna Acosta MD - 07/09/2021 [facility] Test Date: 2021-07-09 Pat Name: TYSON YOUNGBLOOD Department: Room: [facility] Gender: Female Office Manager Executive Assistant: : 1970 Requested By: KRISTEL GAY Order Number: [id number] Reading MD: Brianna Acosta Measurements Intervals [place] Rate: 95 P: 45 AK: 171 QRS: 17 QRSD: 79 T: 32 QT: 360 QTc: 453 Interpretive Statements SINUS RHYTHM WITH OCCASIONAL VENTRICULAR PREMATURE COMPLEXES NONSPECIFIC T-WAVE ABNORMALITY Compared to ECG 04/15/2021 22:40:25 Ventricular premature complex(es) now present T-wave abnormality still present Kristel Gay [facility] ORDERABLES Final Result [facility] ([facility]) [facility] documented in this encounter Visit Diagnoses Diagnosis [...] Discontinued, Therapeutic interchange for Humalog 75/25 per [facility] protocol Given 07/11/2021 11:16 AM CDT [...] Until Discontinued 37 (Given - Provider: Servando Snug RN)2127 (Given - Provider: Sharyn Garza RN) [...] Discontinued, Therapeutic interchange for Humalog 75/25 per [facility] protocol 0925 (Not Given - Provider: [...] not met)2128 (Not Given - Provider: Sharyn Gazra RN - Reason: Order parameters not met) [...] Total Score: 0 03/08/19 22 9:30 AM INSURANCE UNDERWRITER documented as of this encounter Care Teams Non Garment Sewing Machine Operator Relationship Specialty Start Date End Date Yasmin Segura II, MD 100 [place] [address] PCP - General FAMILY PRACTICE 03/09/21 documented as of this encounter
--- OUTSIDE RECORDS SUMMARY | 2024-03-03 01:27 | XMS_ITS | Encounter Summary ---
Author Organization [facility] Address [address] [place] [address]. [place], [place] [address] [place] [address] Care Team Providers Care Review Specialist Name Role Phone Colton SILVEIRA MD, [...] Assessment Author Status No 04/15/2021 11:33 PM FIRST ASSIST Acti ve * RETIRED Are you blind or do you have serious difficulty seeing, even when wearing glasses? Answer Date of Assessment Author Status No 04/15/2021 11:33 PM FIRST ASSIST Acti ve * Do you have serious [...] st Contact Info) Description 03/14/2024 11:45 AM FIRST ASSIST Office Visit [facility] [address] Marvin Mckeon MD [facility] [address] [place], [place] [phone] 03/20/2024 11:30 AM FIRST ASSIST Office Visit [facility] Family Medicine - [place] 100 [place] [phone] Abiodun Segura II, MD [address] [place] [phone] documented as of this encounter Visit Diagnoses Not on filedocumented in this encounter Additional Health Concerns Assessment Noted Time PHQ-9 Depression Total Score: 0 03/08/19 9:30 AM FIRST ASSIST documented as of this encounter Care Teams Review Specialist Relationship Specialty Start Date End Date Abiodun Segura II, MD 100 [place] [address] PCP - General FAMILY PRACTICE 03/09/21 documented as of this encounter
--- OUTSIDE RECORDS SUMMARY | 2024-03-03 01:27 | XMS_ITS | Encounter Summary ---
Author Organization [facility] Address [address] [place] [address]. [place], [place] [address] [place] [address] Care Team Providers Care Lugger Name Role Phone Colton SILVEIRA MD, Abiodun [...] Assessment Author Status No 04/15/2021 11:33 PM CHIEF OF PLANNING Acti ve * RETIRED Are you blind or do you have serious difficulty seeing, even when wearing glasses? Answer Date of Assessment Author Status No 04/15/2021 11:33 PM CHIEF OF PLANNING Acti ve * Do you have serious [...] Contact Info) Description 03/14/2024 11:45 AM CHIEF OF PLANNING Office Visit [facility] [address] Marvin Mckeon MD [facility] [address] [place], [place] [phone] 03/20/2024 11:30 AM CHIEF OF PLANNING Office Visit [facility] Family Medicine - [place] 100 [place] [phone] Abiodun Segura II, MD [address] [place] [phone] documented as of this encounter Visit Diagnoses Not on filedocumented in this encounter Additional Health Concerns Assessment Noted Time PHQ-9 Depression Total Score: 0 03/08/19 9:30 AM CHIEF OF PLANNING documented as of this encounter Care Teams Lugger Relationship Specialty Start Date End Date Abiodun Segura II, MD 100 [place] [address] PCP - General FAMILY PRACTICE 03/09/21 documented as of this encounter
--- OUTSIDE RECORDS SUMMARY | 2024-03-03 01:27 | XMS_ITS | Encounter Summary ---
Author Organization [facility] Address [address] [place] [address]. 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 Answer Date of Assessment Author Status No 04/15/2021 11:33 PM STRAW HAT WASHER OPERATOR Acti ve * Do you have [...] st Contact Info) Description 03/14/2024 11:45 AM STRAW HAT WASHER OPERATOR Office Visit [facility] [address] Marvin Mckeon MD [facility] [address] [place] [address] 03/20/2024 11:30 AM STRAW HAT WASHER OPERATOR Office Visit [facility] Family Medicine - 100 [place] [phone] Abiodun Segura II, MD 100 [place], [place] [phone] documented as of this encounter Visit Diagnoses Not on filedocumented in this encounter Additional Health Concerns Assessment Noted Time PHQ-9 Depression Total Score: 0 03/08/19 9:30 AM STRAW HAT WASHER OPERATOR documented as of this encounter Care Teams Concrete Batching Plant Operator Relationship Specialty Start Date End Date Abiodun Segura II, MD 100 [place], [place] [phone] PCP - General FAMILY PRACTICE 03/09/21 documented as of this encounter
--- OUTSIDE RECORDS SUMMARY | 2024-03-03 01:27 | XMS_ITS | Encounter Summary ---
Author Organization [facility] Address [address] [place] [address]. [place], [place] [address] [place] [address] Care Team Providers Care Retirement Assistant Name Role Phone Colton SILVEIRA MD, [...] Assessment Author Status No 04/15/2021 11:33 PM BROADCAST TRAFFIC COORDINATOR Acti ve * RETIRED Are you blind or do you have serious difficulty seeing, even when wearing glasses? Answer Date of Assessment Author Status No 04/15/2021 11:33 PM BROADCAST TRAFFIC COORDINATOR Acti ve * Do you have [...] st Contact Info) Description 03/14/2024 11:45 AM BROADCAST TRAFFIC COORDINATOR Office Visit [facility]-[address] [address] Marvin Mckeon MD [facility] [address] [place], [place] [phone] 03/20/2024 11:30 AM BROADCAST TRAFFIC COORDINATOR Office Visit [facility] Family Medicine - [place] 100 [place] [phone] Abiodun Segura II, MD [address] [place] [phone] documented as of this encounter Visit Diagnoses Not on filedocumented in this encounter Additional Health Concerns Assessment Noted Time PHQ-9 Depression Total Score: 0 03/08/19 9:30 AM BROADCAST TRAFFIC COORDINATOR documented as of this encounter Care Teams Retirement Assistant Relationship Specialty Start Date End Date Abiodun Segura II, MD 100 [place] [address] PCP - General FAMILY PRACTICE 03/09/21 documented as of this encounter
--- OUTSIDE RECORDS SUMMARY | 2024-03-03 01:27 | XMS_ITS | Encounter Summary ---
Author Organization [facility] Address [address] [place] [address]. [place] [address] [place] [address] Care Team Providers Care Metal Cut Off Saw Operator Name Role Phone Colton SILVEIRA MD, Abiodun Rushing Primary Care Provider Reason for Visit * Reason Onset Date Comments TCM 07/12/2021 TCM Encounter Details Date Type Department Care Team (Late st Contact Info) Description 07/12/2021 Telephone [facility] Family Medicine - [place] 100 [place] [address] Abiodun Segura II, MD 100 [place] [address] TCM (TCM) Social History Tobacco [...] of hospital discharge: 07/11/2021 Patient discharged from: [facility] Discharge diagnosis/diagnoses: Chest pain Procedures performed [...] st Contact Info) Description 03/14/2024 11:45 AM RAC SPECIALIST Office Visit [facility]-[address] [address] Marvin Mckeon MD [facility] [address] [place] [address] 03/20/2024 11:30 AM RAC SPECIALIST Office Visit [facility] Family Medicine - [place] 100 [place] [phone] Abiodun Segura II, MD 100 [place] [address] documented as of this encounter Visit Diagnoses Not on filedocumented in this encounter Additional Health Concerns Assessment Noted Time PHQ-9 Depression Total Score: 0 03/08/19 9:30 AM RAC SPECIALIST documented as of this encounter Care Teams Metal Cut Off Saw Operator Relationship Specialty Start Date End Date Abiodun Segura II, MD [address] [place] [address] PCP - General FAMILY PRACTICE 03/09/21 documented as of this encounter
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
--- OUTSIDE RECORDS SUMMARY | 2024-03-03 01:27 | XMS_ITS | Encounter Summary ---
Author Organization [facility] Address [address] [place] [address]. [place] [address] [place] [address] Care Team Providers Care Technical Documentation Specialist Name Role Phone Colton SILVEIRA MD, Yasmin Rushing Primary Care Provider Reason for Visit * Reason Comments Follow Up Medical management Encounter Details Date Type Department Care Team (Late st Contact Info) Description 07/20/2021 10:20 AM CDT Office Visit [facility] Family Medicine - [place] 100 [place] [address] Yasmin Segura II, MD 100 [place], [place] [phone] Follow Up (Medical management) Social History Tobacco [...] from the original note were not included. [facility] FAMILY [address] [address] OFFICE FOLLOW UP NOTE Encounter Date: 07/20/2021 [...] She will discuss the symptoms with her advertising sales consultant at follow-up. She has started B12 and [...] Myocardial Perfusion Imaging Pat.Name: LENA YOUNGBLOOD Pat.ID: [id number] .Date: 07/11/2021 Refer.MD: Eduarda Chester [id number] Exam Time: 8:47:00 AM Study Type:[place] HT MUSCLE IMAGE SPECT MULTI Height: 66in Weight: 186lb BSA: 1.94 m2 Age: 2 1970,51Y Sex: FEMALE Sonogrphr: Roxana Simmons [facility] Pat. Stat.:Inpatient Reason for Study: Chest pain, Shortness of breath History / Clinical: elevated D-dimer, Hypertension, Diabetes, Renal Insufficiency Procedures: Nuclear Stress Test with Lexiscan Race: -Libyan Surgery: Echocardiogram ++++++++++++++++++++++++++++++++++++ SUMMARY: ++++++++++++++++++++++++++++++++++++ Stress conclusion: [...] 133/80 O2 Sat 100 % Max RPP [id number] Symptoms and Complications: Terminated Protocol completed Symptoms Shortness of breath, Abdominal pain, Leg fatigue Complications None Stress ECG Interp No ischemic changes Signed 07/11/2021 01:02 PM Stacie Oconnell M.D. USE ECHOCARDIOGRAM W CON Narrative Echocardiography Report Pat.Name: LENA YOUNGBLOOD Pat.ID: [id number] .Date: 07/10/2021 Exam Time: 8:23:00 AM Study Type:ECHO WITH CARDIAC DOPPLER COMP Height: 66in Weight: 188.61lb BSA: 1.95 m2 Age: 2 1970,51Y Sex: FEMALE BP: 125/81 HR: 87 bpm Sonogrphr: KALINA LOPEZ [facility] Reason for Study: Chest pain History / Clinical: elevated D-dimer, Hypertension Procedures: 2D, M-mode, Doppler, Color Flow, Definity was used to enhance endocardial definition., Intraveneous saline contrast was used to help determine presence of intracardiac shunting. Race: -Libyan ++++++++++++++++++++++++++++++++++++ SUMMARY: ++++++++++++++++++++++++++++++++++++ The left ventricular systolic [...] 37.7 mm Right Ventricle 27.8 mm Major [place] 59.9 mm MMODE TA Tricuspid Annul 14.2 mm Signed 07/10/2021 12:36 PM Brianna Acosta M.D. 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: : 1970 Requested By: ANABELA PINEDA Order Number: [id number] Reading MD: Brianna Acosta Measurements Intervals [place] Rate: 95 P: 45 WV: 171 QRS: 17 QRSD: 79 T: 32 QT: 360 QTc: 453 Interpretive Statements SINUS RHYTHM WITH OCCASIONAL VENTRICULAR PREMATURE COMPLEXES NONSPECIFIC T-WAVE ABNORMALITY Compared to ECG 04/15/2021 22:40:25 Ventricular premature complex(es) now present T-wave abnormality still present ECG 12 lead Narrative [place] [address] Test Date: 2021-07-09 Pat Name: [facility] Department: 41 Room: [id number] Gender: Female 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: [id number] : 1970 Requested By: ANABELA PINEDA Order Number: [id number] Reading MD: Brianna Acosta Measurements Intervals [place] Rate: 96 P: 36 WV: 176 QRS: 10 QRSD: 86 T: 0 QT: 298 QTc: 376 Interpretive Statements SINUS RHYTHM WITH FREQUENT VENTRICULAR PREMATURE COMPLEXES MODERATE VOLTAGE CRITERIA FOR LVH, CONSIDER NORMAL VARIANT NONSPECIFIC T-WAVE ABNORMALITY ABNORMAL RHYTHM ECG Compared to ECG 07/09/2021 15:10:55 No significant changes ECG 12 lead Narrative [place] [address] Test Date: 2021-07-10 Pat Name: [facility] Department: 40 Room: [id number] 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: Female 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: [id number] : 1970 Requested By: EDUARDA CHESTER Order Number: [id number] Reading MD: Brianna Acosta Measurements Intervals [place] Rate: 89 P: 48 WV: 193 QRS: 26 QRSD: 90 T: -10 QT: 378 QTc: 461 Interpretive Statements SINUS RHYTHM WITH FREQUENT VENTRICULAR PREMATURE COMPLEXES NONSPECIFIC T-WAVE ABNORMALITY ABNORMAL RHYTHM ECG Compared to ECG 07/09/2021 17:11:30 No significant changes ECG 12 lead Narrative [place] [place] [address] [facility] Test Date: 2021-07-10 Pat Name: [facility] Department: 40 Room: [id number] Gender: Female 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 Fatigue, unspecified type 5. Charcot foot due to diabetes mellitus ([facility]) Plan: No orders of the defined types were placed in this encounter. 1. H/O acute gastritis Patient's folliculitis is currently resolved. Patient will continue to not take doxycycline unless her folliculitis returns. She may continue omeprazole 40 mg daily as needed for symptoms. Patient tofollow-up with me in August for nxbch-re-kyvo hemoglobin A1c. 2. Primary hypertension Patient's blood pressure is improved today. No medication adjustment needed at this time. 3. Type 2 diabetes mellitus with diabetic neuropathic arthropathy, with long- term current use of insulin ([facility]) Patient's home sugars show better control. We [...] 5. Charcot foot due to diabetes mellitus ([facility]) Patient to follow-up with her advertising sales consultant as scheduled for ongoing management of her Charcot foot. There are no discontinued medications. YASMIN SEGURA MD 07/20/2021 Portions of this note were dictated using Xceedium speech recognition software. Occasional wrong wordor sound-alike substitutions may have occurred due to the inherent limitations of voice recognition software. Please read the chart carefully and recognize, using context, where the substitutions may have occurred. documented in this encounter Plan of Treatment Upcoming Encounters Date Type Department Care Team (Late st Contact Info) Description 03/14/2024 11:45 AM WALL SCRAPER Office Visit [facility] [phone] Marvin Mckeon MD [facility] [address] [place] [address] 03/20/2024 11:30 AM WALL SCRAPER Office Visit [facility] Family Medicine - [place] [address] [place] [phone] Yasmin Segura II, MD 100 [place] [address] documented as of this encounter Visit Diagnoses Diagnosis H/O acute gastritis- Primary Personal history of unspecified digestive disease Primary hypertension Unspecified essential hypertension Type 2 diabetes mellitus with diabetic neuropathic arthropathy, with long-term current use of insulin ([facility]) Fatigue, unspecified type Charcot foot due to diabetes mellitus ([facility]) Type II or unspecified type diabetes mellitus with neurological manifestations, not stated as uncontrolled documented in this encounter Additional Health Concerns Assessment Noted Time PHQ-9 Depression Total Score: 0 03/08/19 22 9:30 AM WALL SCRAPER documented as of this encounter Care Teams Technical Documentation Specialist Relationship Specialty Start Date End Date Yasmin Segura II, MD 100 [place] [address] PCP - General FAMILY PRACTICE 03/09/21 documented as of this encounter
--- OUTSIDE RECORDS SUMMARY | 2024-03-03 01:27 | XMS_ITS | Encounter Summary ---
Author Organization [facility] Address [address] [place] [address]. [place], [place] [address] [place] [address] Care Team Providers Care Bundle Clerk Name Role Phone Colton SILVEIRA MD, [...] Assessment Author Status No 04/15/2021 11:33 PM CATALOGUE ILLUSTRATOR Acti ve * RETIRED Are you blind or do you have serious difficulty seeing, even when wearing glasses? Answer Date of Assessment Author Status No 04/15/2021 11:33 PM CATALOGUE ILLUSTRATOR Acti ve * Do you have serious [...] st Contact Info) Description 03/14/2024 11:45 AM CATALOGUE ILLUSTRATOR Office Visit [facility] [phone] Marvin Mckeon MD [facility] [address] [place], [place] [phone] 03/20/2024 11:30 AM CATALOGUE ILLUSTRATOR Office Visit [facility] Family Medicine - [place] 100 [place] [phone] Abiodun Segura II, MD [address] [place] [phone] documented as of this encounter Visit Diagnoses Not on filedocumented in this encounter Additional Health Concerns Assessment Noted Time PHQ-9 Depression Total Score: 0 03/08/19 9:30 AM CATALOGUE ILLUSTRATOR documented as of this encounter Care Teams Bundle Clerk Relationship Specialty Start Date End Date Abiodun Segura II, MD 100 [place] [address] PCP - General FAMILY PRACTICE 03/09/21 documented as of this encounter
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
--- OUTSIDE RECORDS SUMMARY | 2024-03-03 01:27 | XMS_ITS | Encounter Summary ---
Author Organization [facility] Address [address] [place] [address]. [place], [place] [address] [place] [address] Care Team Providers Care Director Of Entertainment Name Role Phone Colton SILVEIRA MD, Abiodun [...] Assessment Author Status No 04/15/2021 11:33 PM CABLE DISPATCHER Acti ve * RETIRED Are you blind or do you have serious difficulty seeing, even when wearing glasses? Answer Date of Assessment Author Status No 04/15/2021 11:33 PM CABLE DISPATCHER Acti ve * Do you have serious [...] Contact Info) Description 03/14/2024 11:45 AM CABLE DISPATCHER Office Visit [facility]-[address] [address] Marvin Mckeon MD [facility] [address] [place], [place] [phone] 03/20/2024 11:30 AM CABLE DISPATCHER Office Visit [facility] Family Medicine - [place] 100 [place] [phone] Abiodun Segura II, MD [address] [place] [phone] documented as of this encounter Visit Diagnoses Not on filedocumented in this encounter Additional Health Concerns Assessment Noted Time PHQ-9 Depression Total Score: 0 03/08/19 9:30 AM CABLE DISPATCHER documented as of this encounter Care Teams Director Of Entertainment Relationship Specialty Start Date End Date Abiodun Segura II, MD 100 [place] [address] PCP - General FAMILY PRACTICE 03/09/21 documented as of this encounter
--- OUTSIDE RECORDS SUMMARY | 2024-03-03 01:27 | XMS_ITS | Encounter Summary ---
Author Organization [facility] Address [address] [place] [address]. [place] [address] [place] [address] Care Team Providers Care Hourly Shift Manager Name Role Phone Colton SILVEIRA MD, Abiodun Rushing Primary Care Provider Reason for Visit * Reason Onset Date Comments Medication 06/20/2021 UTI 06/20/2021 Encounter Details Date Type Department Care Team (Late st Contact Info) Description 06/20/2021 Telephone [facility] Family Medicine - [place] 100 [place] [address] Abiodun Segura II, MD 100 [place] [address] Medication; UTI Social History Tobacco [...] Assessment Author Status No 04/15/2021 11:33 PM ANATOMIC PATHOLOGIST Acti ve * RETIRED Are you blind or do you have serious difficulty seeing, even when wearing glasses? Answer Date of Assessment Author Status No 04/15/2021 11:33 PM ANATOMIC PATHOLOGIST Acti ve * Do you have serious [...] - 06/20/2021 2:02 PM CDT Call back [phone] Lena said that she has a UTI and she has reocurring UTIs. She is requesting an antibiotic. She said she is feeling like its starting and she is going out of town on the weekend and wants to be on the safe side. [facility]acy is [facility] in [place] I did tell her that I dont know if Dr. Mercado would prescribe without an appt. She insisted on seeing ifhe would send it over before making an appt since she comes in on the documented in this encounter Plan of Treatment Upcoming Encounters Date Type Department Care Team (Late st Contact Info) Description 03/14/2024 11:45 AM ANATOMIC PATHOLOGIST Office Visit [facility]-[address] [address] Marvin Mckeon MD [address] [facility] [address] [place] [address] 03/20/2024 11:30 AM ANATOMIC PATHOLOGIST Office Visit [facility] Family Medicine - [place] 100 [place] [phone] Abiodun Segura II, MD 100 [place] [address] documented as of this encounter Visit Diagnoses Not on filedocumented in this encounter Additional Health Concerns Assessment Noted Time PHQ-9 Depression Total Score: 0 03/08/19 9:30 AM ANATOMIC PATHOLOGIST documented as of this encounter Care Teams Hourly Shift Manager Relationship Specialty Start Date End Date Abiodun Segura II, MD 100 [place], [place] [address] PCP - General FAMILY PRACTICE 03/09/21 documented as of this encounter
--- OUTSIDE RECORDS SUMMARY | 2024-03-03 01:27 | XMS_ITS | Encounter Summary ---
Author Organization [facility] Address [address] [place] [address]. [place] [address] [place] [address] Care Team Providers Care Profile Shaper Operator Name Role Phone Colton SILVEIRA MD, Yasmin Rushing Primary Care Provider Reason for Visit * Reason Comments Follow Up constipation and typ e 2 diabetes Encounter Details Date Type Department Care Team (Late st Contact Info) Description 05/04/2021 9:00 AM CDT Office Visit [facility] Family Medicine - [place] 100 [place] [address] Yasmin Valenzuela II, MD 100 [place] [address] Follow Up (constipation and type [...] Body Mass Index 31.31 04/15/2021 4:29 PM CLUTCH INSPECTOR documented in this encounter Functional Status * RETIRED Are you deaf or do you have serious difficulty hearing Answer Date of Assessment Author Status No 04/15/2021 11:33 PM CLUTCH INSPECTOR Acti ve * RETIRED Are you blind or do you have serious difficulty seeing, even when wearing glasses? Answer Date of Assessment Author Status No 04/15/2021 11:33 PM CLUTCH INSPECTOR Acti ve * Do you have [...] original note were not included. [facility] [address] [address] OFFICE FOLLOW UP NOTE Encounter Date: 05/04/2021 [...] with long- term current use of insulin ([facility]) ALBUMIN URINE RANDOM SITagliptin 100 MG tablet A1C (BACK OFFICE) 2. Primary hypertension COMPREHENSIVE METABOLIC PANEL 3. Vision decreased 4. Other constipation Plan: Orders Placed This Encounter Medications ??? SITagliptin 100 MG tablet 1. Type 2 diabetes mellitus with diabetic neuropathic arthropathy, with long- term current use of insulin ([facility]) Hemoglobin A1c remains essentially unchanged at 9%. [...] Vision decreased Patient will schedule with her rock room worker for ongoing diabetic retinopathy surveillance. 4. Other constipation Constipation is now improved and manageable with Linzess. Medications Discontinued During This Encounter Medication Reason ??? Senna 8.6 MG tablet Formulary change YASMIN VALENZUELA MD 05/04/2021 Portions of this note were dictated using Starvine speech recognition software. Occasional wrong wordor sound-alike substitutions may have occurred due to the inherent limitations of voice recognition software. Please read the chart carefully and recognize, using context, where the substitutions may have occurred. documented in this encounter Plan of Treatment Upcoming Encounters Date Type Department Care Team (Late st Contact Info) Description 03/14/2024 11:45 AM CLUTCH INSPECTOR Office Visit [facility]-[address] [address] Marvin Mckeon MD [address] [facility] [address] [place] [phone] 03/20/2024 11:30 AM CLUTCH INSPECTOR Office Visit [facility] Family Medicine - [address] [phone] Yasmin Valenzuela II, MD [address] [place] [phone] documented as of this encounter Procedures Procedure Name Priority Date/Time Associated Diagnosis Comments HEMOGLOBIN, GLYCOSYLATED Routine 05/04/2021 Type 2 diabetes mellitus with diabetic neuropathic arthropathy, with long-term current use of insulin ([facility]) documented in this encounter Results * (ABNORMAL) COMPREHENSIVE METABOLIC PANEL (05/10/2021 12:09 PM CDT) GLUCOSE 144(H) 70 - 99 MG/DL 05/10/2021 1:17 PM CDT [facility] BUN 18 7 - 18 MG/DL 05/10/2021 1:17 PM CDT [facility] CREATININE S/P/B 1.19(H) 0.55 - 1.02 MG/DL 05/10/2021 1:17 PM CDT [facility] SODIUM S/P/B 139 136 - 145 MMOL/L 05/10/2021 1:17 PM CDT [facility] POTASSIUM S/P/B 4.2 3.5 - 5.1 MMOL/L 05/10/2021 1:17 PM CDT [facility] CHLORIDE S/P/B 106 100 - 108 MMOL/L 05/10/2021 1:17 PM CDT [facility] CO2 30.1 21 - 32 MMOL/L 05/10/2021 1:17 PM CDT [facility] CALCIUM S/P/B 9.5 8.5 - 10.1 MG/DL 05/10/2021 1:17 PM CDT [facility] BILIRUBIN TOTAL S/P/B 0.5 0.2 - 1.2 MG/DL 05/10/2021 1:17 PM T [facility] Comment: THIS ASSAY IS NOT RECOMMENDED FOR PATIENTS UNDERGOING TREATMENT WITH ELTROMBOPAG DUE TO THE POTENTIAL FOR FALSELY ELEVATED RESULTS. TOTAL PROTEIN S/P/B 8.4(H) 6.4 - 8.2 G/DL 05/10/2021 1:17 PM CDT [facility] ALBUMIN S/P/B 3.7 3.4 - 5.0 G/DL 05/10/2021 1:17 PM CDT [facility] AST 17 15 - 37 U/L 05/10/2021 1:17 PM T [facility] ALT 26 14 - 55 U/L 05/10/2021 1:17 PM CDT [facility] ALKALINE PHOSPHATASE S/P/B 135 50 - 136 U/L 05/10/2021 1:17 PM T [facility] ANION GAP 2.9(L) 5 - 15 MMOL/L 05/10/2021 1:17 PM T [facility] BUN CREATININE RATIO 15.1 6 - 26 05/10/2021 1:17 PM T [facility] A/G RATIO 0.8(L) 1.0 - 2.0 RATIO 05/10/2021 1:17 PM CDT [facility] EGFR NON-AFR. AMER. 53(L) >90 ML/MIN/1.7 3 M2 05/10/2021 1:17 PM CDT [facility] EGFR AFR. AMER. 62(L) >90 ML/MIN/1.7 3 M2 05/10/2021 1:17 PM CDT [facility] Comment: NOTE: eGFR is not calculated for patients <18 years of age. This is an estimated GFR (CKD EPI) and should not be used for calculating drug doses. 05/10/2021 12:0 9 PM CDT us Yasmin Valenzuela II, MD LABORATORY Final R esult Performing Organization Address City/[facility]/ZIP Co de Phone Number [facility] [address] [place] [address], [place] [phone] * (ABNORMAL) ALBUMIN URINE RANDOM (05/10/2021 12:03 PM CDT) CREATININE (U) 149.0 28 - 217 MG/DL 05/10/2021 1:29 PM CDT [facility] MICROALBUMIN (U) 23.0(H) <2.0 mg/dL 05/10/2021 1:29 PM CDT [facility] ALBUMIN/CREAT RATIO 154.4(H) <30 MG/G 05/10/2021 1:29 PM CDT [facility] URINE SPECIMEN / Unknown 05/10/2021 12:03 PM CDT Yasmin Valenzuela II, MD URINE ORDERABLES Final Result Performing Organization Address City/[facility]/ZIP Co de Phone Number [facility] [address] [place] [address] [place] [address], [place] [phone] * A1C (BACK OFFICE) (05/04/2021) HGB A1C 9.0 % MG-[address] [facility] 05/04/2021 Yasmin Valenzuela II, MD LABORATORY Final R esult MG-100 [facility] 100 [place] [address], [place] [phone] documented in this encounter Visit Diagnoses Diagnosis Type 2 diabetes mellitus with diabetic neuropathic arthropathy, with long-term current use of insulin ([facility])- Primary Primary hypertension Unspecified essential hypertension Vision decreased Unspecified visual loss Other constipation documented in this encounter Additional Health Concerns Assessment Noted Time PHQ-9 Depression Total Score: 0 03/08/19 22 9:30 AM CLUTCH INSPECTOR documented as of this encounter Care Teams Profile Shaper Operator Relationship Specialty Start Date End Date Yasmin Valenzuela II, MD [address] [place] [address] PCP - General FAMILY PRACTICE 03/09/21 documented as of this encounter
--- OUTSIDE RECORDS SUMMARY | 2024-03-03 01:27 | XMS_ITS | Encounter Summary ---
Author Organization [facility] Address [address] [place] [address]. [place] [address] [place] [address] Care Team Providers Care Metal Worker Name Role Phone Colton SILVEIRA MD, Yasmin Rushing Primary Care Provider Reason for Visit * Reason Comments Follow Up Diabetes and POC A1C Encounter Details Date Type Department Care Team (Late st Contact Info) Description 07/06/2021 10:40 AM CDT Office Visit [facility] Family Medicine - [place] 100 [place] [address] Yasmin Valenzuela II, MD 100 [place] [address] Follow Up (Diabetes and POC [...] Body Mass Index 30.67 04/15/2021 4:29 PM LITURGICAL MUSIC DIRECTOR documented in this encounter Functional Status * RETIRED Are you deaf or do you have serious difficulty hearing Answer Date of Assessment Author Status No 04/15/2021 11:33 PM LITURGICAL MUSIC DIRECTOR Acti ve * RETIRED Are you blind or do you have serious difficulty seeing, even when wearing glasses? Answer Date of Assessment Author Status No 04/15/2021 11:33 PM LITURGICAL MUSIC DIRECTOR Acti ve * Do you have serious [...] from the original note were not included. [facility] [address] [address] OFFICE FOLLOW UP NOTE Encounter Date: 07/06/2021 Chief Complaint: Follow Up (Diabetes and POC A1C) History of Present Illness: 51-year-old female with history of diabetes, hypertension, decreased vision, Charcot foot, and hot flashes secondary to menopause here for [id number] hemoglobin A1c testing and blood pressure check. [...] with long- term current use of insulin ([facility]) A1C (BACK OFFICE) 2. Folliculitis doxycycline hyclate 100 MG capsule 3. Primary hypertension 4. Charcot foot due to diabetes mellitus ([facility]) 5. Vision decreased 6. Hot flashes due to menopause Plan: Orders Placed This Encounter Medications ??? doxycycline hyclate 100 MG capsule 1. Type 2 diabetes mellitus with diabetic neuropathic arthropathy, with long- term current use of insulin ([facility]) Patient's diabetes is now well controlled. No [...] 4. Charcot foot due to diabetes mellitus ([facility]) Patient has a stable Charcot foot. She continues to be able to walk. We will continue risk factor control. 5. Vision decreased Patient has an eye appointment scheduled for July. 6. Hot flashes due to menopause We discussed treatment options for hot flashes. Patient will try qitv-rvz-[id number] preparations at this time and we will continue to monitor. Patient may do well with an SNRI but we should likely avoid estrogen therapy secondary to her comorbid conditions. There are no discontinued medications. YASMIN VALENZUELA MD 07/06/2021 Portions of this note were dictated using Kormeli speech recognition software. Occasional wrong wordor sound-alike substitutions may have occurred due to the inherent limitations of voice recognition software. Please read the chart carefully and recognize, using context, where the substitutions may have occurred. documented in this encounter Plan of Treatment Upcoming Encounters Date Type Department Care Team (Late st Contact Info) Description 03/14/2024 11:45 AM LITURGICAL MUSIC DIRECTOR Office Visit [facility]-[address] [phone] Marvin Mckeon MD [address] [facility] [address] [place], [place] [phone] 03/20/2024 11:30 AM LITURGICAL MUSIC DIRECTOR Office Visit [facility] Family Medicine - [address] [phone] Yasmin Valenzuela II, MD [address] [place] [address] documented as of this encounter Procedures Procedure Name Priority Date/Time Associated Diagnosis Comments HEMOGLOBIN, GLYCOSYLATED Routine 07/06/2021 Type 2 diabetes mellitus with diabetic neuropathic arthropathy, with long-term current use of insulin ([facility]) documented in this encounter Results * A1C (BACK OFFICE) (07/06/2021) HGB A1C 7.4 % [facility] 07/06/2021 us Yasmin Valenzuela II, MD LABORATORY Final R esult [address],[facility] 100 [place] [address], [place] [phone] documented in this encounter Visit Diagnoses Diagnosis Type 2 diabetes mellitus with diabetic neuropathic arthropathy, with long-term current use of insulin ([facility])- Primary Folliculitis Other specified disease of hair and hair follicles Primary hypertension Unspecified essential hypertension Charcot foot due to diabetes mellitus ([facility]) Type II or unspecified type diabetes mellitus with neurological manifestations, not stated as uncontrolled Vision decreased Unspecified visual loss Hot flashes due to menopause documented in this encounter Additional Health Concerns Assessment Noted Time PHQ-9 Depression Total Score: 0 03/08/19 22 9:30 AM LITURGICAL MUSIC DIRECTOR documented as of this encounter Care Teams Metal Worker Relationship Specialty Start Date End Date Yasmin Valenzuela II, MD 100 [place], [place] [phone] PCP - General FAMILY PRACTICE 03/09/21 documented as of this encounter
--- OUTSIDE RECORDS SUMMARY | 2024-03-03 01:27 | XMS_ITS | Encounter Summary ---
Author Organization [facility] Address [address] [place] [address]. [place], [place] [phone] [place] [address] Care Team Providers Care Dish Carrier Name Role Phone Colton SILVEIRA MD, Abiodun [...] st Contact Info) Description 03/14/2024 11:45 AM RESERVATION AGENT Office Visit [facility]-[address] [address] Marvin Mckeon MD Three [facility] [address] [place] [address] 03/20/2024 11:30 AM RESERVATION AGENT Office Visit [facility] Family Medicine - [address] [phone] Abiodun Segura II, MD [address] [place] [address] documented as of this encounter Visit Diagnoses Not on filedocumented in this encounter Additional Health Concerns Assessment Noted Time PHQ-9 Depression Total Score: 0 03/08/19 9:30 AM RESERVATION AGENT documented as of this encounter Care Teams Dish Carrier Relationship Specialty Start Date End Date Abiodun Segura II, MD 100 [place] [address] PCP - General FAMILY PRACTICE 03/09/21 documented as of this encounter
--- OUTSIDE RECORDS SUMMARY | 2024-03-03 01:27 | XMS_ITS | Encounter Summary ---
Author Organization [facility] Address [address] [place] [address]. [place], [place] [phone] [place] [address] Care Team Providers Care Oilfield Plant And Field Operator Name Role Phone Colton SILVEIRA MD, Abiodun Rushing Primary Care Provider Reason for Referral * Imaging (Routine) - Closed Specialty Diagnoses / Procedures Referred By Contac t Referred To Contact RADIOLOGY Diagnoses Type 2 diabetes mellitus with diabetic neuropathic arthropathy (CMS/HCC HHS/HCC) Atherosclerosis of [place] arteries of extremities with intermittent claudication, bilateral legs (CMS/HCC) 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 Other abnormalities of gait and mobility Procedures USV ART REST W ADRIANA LOW EXT USV ART DUPLEX+ADRIANA LOW NOHEMY USV ART [place]UPLEX [place] [address] [place] [address] Phone: tel: fax: Referral ID Status Reason Start Date Expiration Date Visits Re quested Visits Authorized [id number] Closed 05/31/2021 06/30/2022 1 1 Reason for Visit * Imaging (Routine) - Closed Specialty Diagnoses / Procedures Referred By Contac t Referred To Contact RADIOLOGY Diagnoses Type 2 diabetes mellitus with diabetic neuropathic arthropathy (CMS/HCC HHS/HCC) Atherosclerosis of [place] arteries of extremities with intermittent claudication, bilateral legs (CMS/HCC) 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 Other abnormalities of gait and mobility Procedures USV ART REST W ADRIANA LOW EXT USV ART DUPLEX+ADRIANA LOW NOHEMY USV [place] [address] [place] [address] Phone: tel: fax: Referral ID Status Reason Start Date Expiration Date Visits Re quested Visits Authorized [id number] Closed 05/31/2021 06/30/2022 1 1 Encounter Details Date Type Department Care Team (Latest Contact Info) Description 06/21/2021 12:30 PM CDT - 06/21/2021 11:59 PM CDT Hospital Encounter [facility] [place] [address] [place] [address] [place] [address] Discharge Disposition: Home or Self [...] Assessment Author Status No 04/15/2021 11:33 PM OIL BURNER Acti ve * RETIRED Are you blind [...] arthropathy, with long-term current use of insulin ([facility]) Inject 3 mg into the skin weekly. 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, with long-term current use of insulin ([facility] HHS/[facility]) USE 1 STRIP TO CHECK GLUCOSE TWICE DAILY 200 strip 3 2 01/02/20 22 HUMALOG MIX 75/25 (75-25) 100 UNIT/ML SuspensionIndicatio ns:Type 2 diabetes mellitus with retinopathy, with long-term current use of insulin, macular edema presence unspecified, unspecified laterality, unspecified retinopathy severity ([facility]) Inject 60 units ;subcutaneously in the morning [...] arthropathy, with long-term current use of insulin ([facility]) USE 1 SYRINGE SUBCUTANEOUSLY TWICE DAILY 100 each 5 1 01/02/20 22 simvastatin 40 MG tablet Take 40 mg by mouth nightly at bedtime. 7 07/12/19 22 SITagliptin 100 MG tabletIndications:T ype 2 diabetes mellitus with diabetic neuropathic arthropathy, with long-term current use of insulin ([facility] HHS/HCC) Take 1 tablet (100 mg total) by mouth daily. 90 tablet 3 2 12/27/19 22 documented as of this encounter Plan of Treatment Upcoming Encounters Date Type Department Care Team (Late st Contact Info) Description 03/14/2024 11:45 AM OIL BURNER Office Visit [facility] [phone] Marvin Mckeon MD [address] [place] [address] 03/20/2024 11:30 AM OIL BURNER Office Visit [facility] Family Medicine - [place] [address] [place] [phone] Abiodun Segura II, MD 100 [place], [place] [phone] documented as of this encounter Procedures Procedure Name Priority Date/Time Associated Diagnosis Comments USV ART REST W ADRIANA LOW EXT Routine 06/21/2021 1:32 PM CDT Type 2 diabetes mellitus with diabetic neuropathic arthropathy ([facility]) Atherosclerosis of [place] arteries [...] ? VASCULAR LAB Pat.Name: ??LENA YOUNGBLOOD ?Pat.ID: ?[id number] ? St.Date: ?? 06/21/2021 ?Refer.MD: ??Abiodun Segura [...] FINDINGS: ++++++++++++++++++++++++++++++++++++ ++++++++++++++++++++++++++++++++++++ MEASUREMENTS: ++++++++++++++++++++++++++++++++++++ ?DOPPLER Left FARMWORKER FUR ?? FARMWORKER FUR PSV ?125 cm/s ? Left Dist Pop A ?? Dist Pop A PSV ??92.5 cm/s ? Left Dist SPOT WORKER ?? Dist SPOT WORKER PSV ?52.4 cm/s ? Left Dist DOMINGA ?? Dist DOMINGA PSV ?74.8 cm/s ? Right FARMWORKER FUR ?? FARMWORKER FUR PSV ?151 cm/s ? Right Dist Pop A ?? Dist Pop A PSV ??97.7 cm/s ? Right Dist SPOT WORKER ?? Dist SPOT WORKER PSV ?49.4 cm/s ? Right Dist [...] EXTREMITY VASCULAR LAB Pat.Name: LENA YOUNGBLOOD Pat.ID: [id number] .Date: 06/21/2021 Refer.MD: Abiodun Segura Exam Time: [...] FINDINGS: ++++++++++++++++++++++++++++++++++++ ++++++++++++++++++++++++++++++++++++ MEASUREMENTS: ++++++++++++++++++++++++++++++++++++ DOPPLER Left FARMWORKER FUR FARMWORKER FUR PSV 125 cm/s Left Dist Pop A Dist Pop A PSV 92.5 cm/s Left Dist SPOT WORKER Dist SPOT WORKER PSV 52.4 cm/s Left Dist DOMINGA Dist DOMINGA PSV 74.8 cm/s Right FARMWORKER FUR FARMWORKER FUR PSV 151 cm/s Right Dist Pop A Dist Pop A PSV 97.7 cm/s Right Dist SPOT WORKER Dist SPOT WORKER PSV 49.4 cm/s Right Dist DOMINGA [...] 2 diabetes mellitus with diabetic neuropathic arthropathy ([facility]/HCC [facility]/HCC) Type II or unspecified type diabetes mellitus with neurological manifestations, not stated as uncontrolled Atherosclerosis of [place] arteries of extremities with intermittent claudication, bilateral legs ([facility]) Nail dystrophy Other specified disease of nail Acquired keratoderma palmaris et plantaris Acquired keratoderma Other abnormalities of gait and mobility documented in this encounter Additional Health Concerns Assessment Noted Time PHQ-9 Depression Total Score: 0 03/08/19 9:30 AM OIL BURNER documented as of this encounter Care Teams Oilfield Plant And Field Operator Relationship Specialty Start Date End Date Abiodun Segura II, MD [address] [place] [address] PCP - General FAMILY PRACTICE 03/09/21 documented as of this encounter
--- OUTSIDE RECORDS SUMMARY | 2024-03-03 01:27 | XMS_ITS | Encounter Summary ---
Author Organization [facility] Address [address] [place] [address]. [place], [place] [address] [place] [address] Care Team Providers Care Weigher Packing Name Role Phone Colton SILVEIRA MD, Abiodun [...] Coronavirus/COVID-19? No / Unsure 04/29/2021 2:08 PM CABLE INSTALLER REPAIRER HELPER documented as of this encounter Functional Status * RETIRED Are you deaf or do you have serious difficulty hearing Answer Date of Assessment Author Status No 04/15/2021 11:33 PM CABLE INSTALLER REPAIRER HELPER Acti ve * RETIRED Are you blind or do you have serious difficulty seeing, even when wearing glasses? Answer Date of Assessment Author Status No 04/15/2021 11:33 PM CABLE INSTALLER REPAIRER HELPER Acti ve * Do you have [...] Contact Info) Description 03/14/2024 11:45 AM CABLE INSTALLER REPAIRER HELPER Office Visit [facility] [phone] Marvin Mckeon MD [facility] [address] [place] [phone] 03/20/2024 11:30 AM CABLE INSTALLER REPAIRER HELPER Office Visit [facility] Family Medicine - [place] 100 [place] [phone] Abiodun Segura II, MD [address] [place] [phone] documented as of this encounter Visit Diagnoses Not on filedocumented in this encounter Additional Health Concerns Assessment Noted Time PHQ-9 Depression Total Score: 0 03/08/19 9:30 AM CABLE INSTALLER REPAIRER HELPER documented as of this encounter Care Teams Weigher Packing Relationship Specialty Start Date End Date Abiodun Segura II, MD 100 [place] [address] PCP - General FAMILY PRACTICE 03/09/21 documented as of this encounter
--- OUTSIDE RECORDS SUMMARY | 2024-03-03 01:27 | XMS_ITS | Encounter Summary ---
Author Organization [facility] Address [address] [place] [address]. [place] [address] [place] [address] Care Team Providers Care Medical Typist Name Role Phone Colton SILVEIRA MD, Yasmin Rushing Primary Care Provider Reason for Visit * Imaging (Routine) - Closed Specialty Diagnoses / Procedures Referred By Lyla chaney Referred To Contact RADIOLOGY Diagnoses Encounter for screening mammogram for malignant neoplasm of breast Procedures MG SCREENING W FELTON NOHEMY RAISSAI Yasmin Valenzuela II, MD 100 [place] [address] Phone: tel: fax: Referral ID Status Reason Start Date Expiration Date Visits Re quested Visits Authorized [id number] Closed 06/08/2021 07/08/2022 1 1 Encounter Details Date Type Department Care Team (Late st Contact Info) Description 07/02/2021 12:30 PM CDT - 07/02/2021 11:59 PM CDT Hospital Encounter [facility] M[facility]ography [address] [place] [address] Yasmin Valenzuela II, MD 100 [place] [address] Discharge Disposition: Home or Self [...] Assessment Author Status No 04/15/2021 11:33 PM GUT SORTER Acti ve * RETIRED Are you blind or do you have serious difficulty seeing, even when wearing glasses? Answer Date of Assessment Author Status No 04/15/2021 11:33 PM GUT SORTER Acti ve * Do you have serious [...] with long-term current use of insulin ([facility]) Inject 3 mg into the skin weekly. 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, with long-term current use of insulin ([facility]) USE 1 STRIP TO CHECK GLUCOSE TWICE DAILY 200 strip 3 2 01/02/20 22 HUMALOG MIX 75/25 (75-25) 100 UNIT/ML SuspensionIndicatio ns:Type 2 diabetes mellitus with retinopathy, with long-term current use of insulin, macular edema presence unspecified, unspecified laterality, unspecified retinopathy severity ([facility]) Inject 60 units ;subcutaneously in [...] with long-term current use of insulin ([facility]) USE 1 SYRINGE SUBCUTANEOUSLY TWICE DAILY 100 each 5 1 01/02/20 22 simvastatin 40 MG tablet Take 40 mg by mouth nightly at bedtime. 7 07/12/19 22 SITagliptin 100 MG tabletIndications:T ype 2 diabetes mellitus with diabetic neuropathic arthropathy, with long-term current use of insulin ([facility]) Take 1 tablet (100 mg total) by mouth daily. 90 tablet 3 2 12/27/19 22 documented as of this encounter Plan of Treatment Upcoming Encounters Date Type Department Care Team (Late st Contact Info) Description 03/14/2024 11:45 AM GUT SORTER Office Visit [facility] [phone] Marvin Mckeon MD [address] [place] [address] 03/20/2024 11:30 AM GUT SORTER Office Visit [facility] Family Medicine - [place] 100 [place] [phone] Yasmin Valenzuela II, MD [address] [place] [address] documented as of this encounter Procedures Procedure [...] change from the prior exam. us Yasmin Vlaenzuela II, MD MAMMO Final R esult documented in this encounter Visit Diagnoses Not on filedocumented in this encounter Additional Health Concerns Assessment Noted Time PHQ-9 Depression Total Score: 0 03/08/19 22 9:30 AM GUT SORTER documented as of this encounter Care Teams Medical Typist Relationship Specialty Start Date End Date Yasmin Valenzuela II, MD [address] [place] [address] PCP - General FAMILY PRACTICE 03/09/21 documented as of this encounter
--- OUTSIDE RECORDS SUMMARY | 2024-03-03 01:27 | XMS_ITS | Encounter Summary ---
Author Organization [facility] Address [address] [place] [address]. [place] [address] [place] [address] Care Team Providers Care Solar Crew Member Name Role Phone Colton SILVEIRA MD, Yasmin Rushing Primary Care Provider Reason for Visit * Reason Comments TCM Chest pain Encounter Details Date Type Department Care Team (Late st Contact Info) Description 07/14/2021 2:40 PM CDT Office Visit [facility] Family Medicine [place] 100 [place] [address] Yasmin Segura II, MD 100 [place] [address] TCM (Chest pain) Social History [...] from the original note were not included. [facility] FAMILY [address] [address] TCM VISIT Encounter Date: 07/14/2021 Chief Complaint: TCM (Chest pain) History of Present Illness: Follow up call to patient post hospitalization ?? Date of hospital discharge: 07/11/2021 ? Patient discharged from: [facility] O'jen[facility] ?? Discharge diagnosis/diagnoses: Chest pain [...] Myocardial Perfusion Imaging Pat.Name: LENA YOUNGBLOOD Pat.ID: [id number] .Date: 07/11/2021 Refer.MD: Eduarda [id number] Exam Time: 8:47:00 AM Study Type:MARINO NC HT MUSCLE IMAGE SPECT MULTI Height: 66in Weight: 186lb BSA: 1.94 m2 Age: 2 1970,51Y Sex: FEMALE Sonogrphr: Roxana Simmons [facility] Pat. Stat.:Inpatient Reason for Study: Chest pain, Shortness of breath History / Clinical: elevated D-dimer, Hypertension, Diabetes, Renal Insufficiency Procedures: Nuclear Stress Test with Lexiscan Race: -Central African Surgery: Echocardiogram ++++++++++++++++++++++++++++++++++++ SUMMARY: ++++++++++++++++++++++++++++++++++++ Stress conclusion: [...] 133/80 O2 Sat 100 % Max RPP [id number] Symptoms and Complications: Terminated Protocol completed Symptoms Shortness of breath, Abdominal pain, Leg fatigue Complications None Stress ECG Interp No ischemic changes Signed 07/11/2021 01:02 PM Stacie Oconnell M.D. USE ECHOCARDIOGRAM W CON Narrative Echocardiography Report Pat.Name: LENA YOUNGBLOOD Pat.ID: [id number] .Date: 07/10/2021 Exam Time: 8:23:00 AM Study [...] help determine presence of intracardiac shunting. Race: -Central African ++++++++++++++++++++++++++++++++++++ SUMMARY: ++++++++++++++++++++++++++++++++++++ The left ventricular systolic [...] 37.7 mm Right Ventricle 27.8 mm Major [place] 59.9 mm MMODE TA Tricuspid Annul 14.2 mm Signed 07/10/2021 12:36 PM Brianna Acosta M.D. USV JOANIE DUPLEX LOW EXT NOHEMY Narrative VENOUS DUPLEX IMAGING BILATERAL LOWER EXTREMITY VASCULAR LAB Pat.Name: LENA YOUNGBLOOD Pat.ID: [id number] .Date: 07/09/2021 Refer.: [id number], Elissa gilman Exam Time: 8:29:00 PM Study [...] - 99 mg/dL ECG 12 lead Narrative [facility] [place] [address] [facility] Test Date: 2021-07-09 Pat Name: [facility] [place] Department: 41 Room: EXAM20 Gender: Female Roll Plugger: : 1970 Requested By: ANABELA PINEDA Order Number: [id number] Reading MD: Brianna Acosta Measurements Intervals [place] Rate: 95 P: 45 CO: 171 QRS: 17 QRSD: 79 T: 32 QT: 360 QTc: 453 Interpretive Statements SINUS RHYTHM WITH OCCASIONAL VENTRICULAR PREMATURE COMPLEXES NONSPECIFIC T-WAVE ABNORMALITY Compared to ECG 04/15/2021 22:40:25 Ventricular premature complex(es) now present T-wave abnormality still present ECG 12 lead Narrative [facility] [place] [address] [place] [address] Test Date: 2021-07-09 Pat Name: [facility] [place] Department: 41 Room: EXAM20 Gender: Female Roll Plugger: KHAI : 1970 Requested By: ANABELA PINEDA Order Number: [id number] Reading MD: Brianna Acosta Measurements Intervals [place] Rate: 96 P: 36 CO: 176 QRS: 10 QRSD: 86 T: 0 QT: 298 QTc: 376 Interpretive Statements SINUS RHYTHM WITH FREQUENT VENTRICULAR PREMATURE COMPLEXES MODERATE VOLTAGE CRITERIA FOR LVH, CONSIDER NORMAL VARIANT NONSPECIFIC T-WAVE ABNORMALITY ABNORMAL RHYTHM ECG Compared to ECG 07/09/2021 15:10:55 No significant changes ECG 12 lead Narrative [facility] [place] [address] [facility] Test Date: 2021-07-10 Pat Name: [facility] [place] Department: 40 Room: [id number] Gender: Female Roll Plugger: [id number] : 1970 Requested By: EDUARDA CHESTER Order Number: [id number] Reading MD: Brianna Acosta Measurements Intervals [place] Rate: 89 P: 48 CO: 193 QRS: 26 QRSD: 90 T: -10 QT: 378 QTc: 461 Interpretive Statements SINUS RHYTHM WITH FREQUENT VENTRICULAR PREMATURE COMPLEXES NONSPECIFIC T-WAVE ABNORMALITY ABNORMAL RHYTHM ECG Compared to ECG 07/09/2021 17:11:30 No significant changes ECG 12 lead [facility] Test Date: 2021-07-10 Pat Name: [facility] [place] Department: 40 Room: [id number] Gender: Female Roll Plugger: [id number] : 1970 Requested By: EDUARDA CHESTER Order Number: [id number] Reading MD: Brianna Acosta Measurements Intervals [place] Rate: 86 P: 45 CO: 207 QRS: 19 QRSD: 85 T: 32 QT: 378 QTc: 454 Interpretive Statements SINUS RHYTHM WITH OCCASIONAL VENTRICULAR PREMATURE COMPLEXES NONSPECIFIC T-WAVE ABNORMALITY Compared to ECG 07/10/2021 00:19:31 No significant changes ECG 12 lead Narrative [facility] Test Date: 2021-07-10 Pat Name: [facility] [place] Department: 40 Room: [id number] Gender: Female Roll Plugger: [id number] : 1970 Requested By: EDUARDA CHESTER Order Number: [id number] Reading MD: Brianna Acosta Measurements Intervals [place] Rate: 88 P: 49 CO: 179 QRS: 11 QRSD: 83 T: -75 [...] with long- term current use of insulin ([facility]) 4. Hypercholesteremia 5. Primary hypertension Plan: Orders [...] with long- term current use of insulin ([facility]) Patient's hemoglobin A1c was checked in the [...] Portions of this note were dictated using 9facts speech recognition software. Occasional wrong wordor sound-alike substitutions may have occurred due to the inherent limitations of voice recognition software. Please read the chart carefully and recognize, using context, where the substitutions may have occurred. documented in this encounter Plan of Treatment Upcoming Encounters Date Type Department Care Team (Late st Contact Info) Description 03/14/2024 11:45 AM SHIPPING AGENT Office Visit [facility] [phone] Marvin Mckeon MD [facility] [address] [place] [address] 03/20/2024 11:30 AM SHIPPING AGENT Office Visit [facility] Family Medicine - 100 [place] [phone] Yasmin Segura II, MD [address] [place] [address] documented as of this encounter Visit Diagnoses Diagnosis Other chest pain- Primary Esophagitis due to doxycycline Other esophagitis Type 2 diabetes mellitus with diabetic neuropathic arthropathy, with long-term current use of insulin ([facility]) Hypercholesteremia Pure hypercholesterolemia Primary hypertension Unspecified essential hypertension documented in this encounter Additional Health Concerns Assessment Noted Time PHQ-9 Depression Total Score: 0 03/08/19 9:30 AM SHIPPING AGENT documented as of this encounter Care Teams Solar Crew Member Relationship Specialty Start Date End Date Yasmin Segura II, MD 100 [place] [address] PCP - General FAMILY PRACTICE 03/09/21 documented as of this encounter
--- OUTSIDE RECORDS SUMMARY | 2024-03-03 01:27 | XMS_ITS | Encounter Summary ---
Author Organization [facility] Address [address] [place] [address]. [place], [place] [address] [place] [address] Care Team Providers Care Artist Agent Name Role Phone Colton SILVEIRA MD, [...] Contact Info) Description 03/14/2024 11:45 AM AVIATION SAFETY INSPECTOR Office Visit [facility] [phone] Marvin Mckeon MD [address] [facility] [address] [place] [address] 03/20/2024 11:30 AM AVIATION SAFETY INSPECTOR Office Visit [facility] Family Medicine - [address] [phone] Abiodun Segura II, MD [address] [place] [address] documented as of this encounter Visit Diagnoses Not on filedocumented in this encounter Additional Health Concerns Assessment Noted Time PHQ-9 Depression Total Score: 0 03/08/19 9:30 AM AVIATION SAFETY INSPECTOR documented as of this encounter Care Teams Artist Agent Relationship Specialty Start Date End Date Abiodun Segura II, MD 100 [place] [address] PCP - General FAMILY PRACTICE 03/09/21 documented as of this encounter
--- OUTSIDE RECORDS SUMMARY | 2024-03-03 01:27 | XMS_ITS | Encounter Summary ---
Author Organization [facility] Address [address] [place] [address]. [place] [address] [place] [address] Care Team Providers Care Filter Screen Cleaner Name Role Phone Colton SILVEIRA MD, Abiodun Rushing Primary Care Provider Reason for Visit * Reason Onset Date Comments Pre-visit Gap Closure 06/02/2021 Record Request 06/02/2021 Encounter Details Date Type Department Care Team (Late st Contact Info) Description 06/02/2021 Telephone [facility] Family Medicine - [place] 100 [place] [address] Abiodun Segura II, MD 100 [place] [address] Pre-visit Gap Closure; Record Request [...] Assessment Author Status No 04/15/2021 11:33 PM IBM MAINFRAME DEVELOPER Acti ve * RETIRED Are you blind or do you have serious difficulty seeing, even when wearing glasses? Answer Date of Assessment Author Status No 04/15/2021 11:33 PM IBM MAINFRAME DEVELOPER Acti ve * Do you have serious [...] Standard Work Program. My direct extension is [phone]. You can also reach me at: [phone] (ESTHER) OR [phone] (BRYANT) documented in this encounter Plan of Treatment Upcoming Encounters Date Type Department Care Team (Late st Contact Info) Description 03/14/2024 11:45 AM IBM MAINFRAME DEVELOPER Office Visit [facility] [phone] Marvin Mckeon MD [address] [facility] [address] [place], [place] [phone] 03/20/2024 11:30 AM IBM MAINFRAME DEVELOPER Office Visit [facility] Family Medicine - [place] 100 [place] [phone] Abiodun Segura II, MD 100 [place], [place] [address] documented as of this encounter Visit Diagnoses Not on filedocumented in this encounter Additional Health Concerns Assessment Noted Time PHQ-9 Depression Total Score: 0 03/08/19 9:30 AM IBM MAINFRAME DEVELOPER documented as of this encounter Care Teams Filter Screen Cleaner Relationship Specialty Start Date End Date Abiodun Segura II, MD 100 [place], [place] [phone] PCP - General FAMILY PRACTICE 03/09/21 documented as of this encounter
--- OUTSIDE RECORDS SUMMARY | 2024-03-03 01:27 | XMS_ITS | Encounter Summary ---
Author Organization [facility] Address [address] [place] [address]. [place] [address] [place] [address] Care Team Providers Care Machine Tack Puller Name Role Phone Colton SILVEIRA MD, Abiodun Rushing Primary Care Provider Reason for Referral * Consultation/Treatment (Routine) - Closed Specialty Diagnoses / Procedures Referred By Lyla t Referred To Contact OPHTHALMOLOGY Diagnoses Diabetic eye exam ([facility]) Abiodun Sgeura II, MD [address] [place] [address] Phone: tel: fax: [facility] [address] [facility] [place] [address] Phone: tel: fax: Referral ID Status Reason Start Date Expiration Date V isits Requested Visits Authorized [id number] Closed Specialty Services 07/20/2021 01/16/2022 6 6 Scheduling Instructions Patient has upcoming apt with [facility] on 07/27/21 Reason for Visit * Reason Onset Date Comments Other 06/29/2021 Encounter Details Date Type Department Care Team (Late st Contact Info) Description 06/29/2021 Telephone [facility] Family Medicine - [place] [address] [place] [phone] Abiodun Segura II, MD [address] [place] [address] Other Social History Tobacco Use Types Packs/Day [...] Assessment Author Status No 04/15/2021 11:33 PM MARINA SALES AND SERVICE SUPERVISOR Acti ve * RETIRED Are you blind or do you have serious difficulty seeing, even when wearing glasses? Answer Date of Assessment Author Status No 04/15/2021 11:33 PM MARINA SALES AND SERVICE SUPERVISOR Acti ve * Do you have [...] Date Author Status No 04/15/2021 11:33 PM MARINA SALES AND SERVICE SUPERVISOR Erica Pope RN Active documented in this [...] needing a referral to be seen @ [facility] in [place], [place]. Pt has an appointment July. Pt has [facility] Insurance Pt can be reached @ [phone] [facility] Contact fax- [phone] documented in this encounter Plan of Treatment Upcoming Encounters Date Type Department Care Team (Late st Contact Info) Description 03/14/2024 11:45 AM MARINA SALES AND SERVICE SUPERVISOR Office Visit [facility] [phone] Marvin Mckeon MD [facility] [address] [place] [address] 03/20/2024 11:30 AM MARINA SALES AND SERVICE SUPERVISOR Office Visit [facility] Family Medicine - [address] [place] [address] Abiodun Segura II, MD [address] [place] [address] Scheduled Referrals Name Type Priority Associated Diagnoses Orde r Schedule Ambulatory Referral to Ophthalmology Referral Routine Diabetic eye exam ([facility]) Ordered: 06/29/2021 documented as of this encounter Visit Diagnoses Diagnosis Diabetic eye exam ([facility])- Primary Examination of eyes and vision documented in this encounter Additional Health Concerns Assessment Noted Time PHQ-9 Depression Total Score: 0 03/08/19 22 9:30 AM MARINA SALES AND SERVICE SUPERVISOR documented as of this encounter Care Teams Machine Tack Puller Relationship Specialty Start Date End Date Abiodun Segura II, MD [address] [place] [address] PCP - General FAMILY PRACTICE 03/09/21 documented as of this encounter
--- OUTSIDE RECORDS SUMMARY | 2024-03-03 01:27 | XMS_ITS | Encounter Summary ---
Author Organization [facility] Address [address] [place] [address]. [place] [address] [place] [address] Care Team Providers Care Wrestling Coach Name Role Phone Colton SILVEIRA MD, Yasmin Rushing Primary Care Provider Reason for Referral * Imaging (Routine) - Closed Specialty Diagnoses / Procedures Referred By Lyla chaney Referred To Contact RADIOLOGY Diagnoses Encounter for screening mammogram for malignant neoplasm of breast Procedures MG SCREENING W FELTON NOHEMY DIGI Yasmin Valenzuela II, MD [address] [place] [address] Phone: tel: fax: Referral ID Status Reason Start Date Expiration Date Visits Re quested Visits Authorized [id number] Closed 06/08/2021 07/08/2022 1 1 Reason for Visit * Reason Comments Follow Up Hypertension, Diabet es and review recent labs Encounter Details Date Type Department Care Team (Late st Contact Info) Description 06/08/2021 9:20 AM CDT Office Visit [facility] Family Medicine - [place] [address] [place] [phone] Yasmin Valenzuela II, MD [address] [place] [address] Follow Up (Hypertension, Diabetes and [...] Body Mass Index 30.18 04/15/2021 4:29 PM SENIOR ASIC DESIGN ENGINEER documented in this encounter Functional Status * RETIRED Are you deaf or do you have serious difficulty hearing Answer Date of Assessment Author Status No 04/15/2021 11:33 PM SENIOR ASIC DESIGN ENGINEER Acti ve * RETIRED Are you blind or do you have serious difficulty seeing, even when wearing glasses? Answer Date of Assessment Author Status No 04/15/2021 11:33 PM SENIOR ASIC DESIGN ENGINEER Acti ve * Do you have serious difficulty walking or climbing stairs? Answer Date of Assessment Author Status No 04/15/2021 11:33 PM SENIOR ASIC DESIGN ENGINEER Erica Pope RN Active * Do you [...] from the original note were not included. [facility] [place] [id number] OFFICE FOLLOW UP NOTE Encounter Date: 06/08/2021 [...] COLOR (U) LIGHT YELLOW TRANSPARENCY CLEAR Specific [place] (U) 1.012 1.001 - 1.030 U PH [...] in clinic in 1 month for repeat [id number] hemoglobin A1c. 2. Primary hypertension Patient's blood [...] Portions of this note were dictated using [employer] speech recognition software. Occasional wrong wordor sound-alike substitutions may have occurred due to the inherent limitations of voice recognition software. Please read the chart carefully and recognize, using context, where the substitutions may have occurred. documented in this encounter Plan of Treatment Upcoming Encounters Date Type Department Care Team (Late st Contact Info) Description 03/14/2024 11:45 AM SENIOR ASIC DESIGN ENGINEER Office Visit [facility] [phone] Marvin Mckeon MD [facility] [address] [place] [address] 03/20/2024 11:30 AM SENIOR ASIC DESIGN ENGINEER Office Visit [facility] Family Medicine - [place] [address] [place] [phone] Yasmin Valenzuela II, MD [address] [place] [address] documented as of this encounter Procedures Procedure [...] current use of insulin ([facility])- Primary Primary hypertension Unspecified essential hypertension Vision decreased Unspecified visual loss Encounter for screening mammogram for malignant neoplasm of breast Other screening mammogram documented in this encounter Additional Health Concerns Assessment Noted Time PHQ-9 Depression Total Score: 0 03/08/19 22 9:30 AM SENIOR ASIC DESIGN ENGINEER documented as of this encounter Care Teams Wrestling Coach Relationship Specialty Start Date End Date Yasmin Valenzuela II, MD [address] [place] [address] PCP - General FAMILY PRACTICE 03/09/21 documented as of this encounter
--- OUTSIDE RECORDS SUMMARY | 2024-03-03 01:27 | XMS_ITS | Encounter Summary ---
Author Organization [facility] Address [address] [place] [address]. [place], [place] [address] [place] [address] Care Team Providers Care Steward/Stewardess Name Role Phone Colton SILVEIRA MD, Abiodun [...] Assessment Author Status No 04/15/2021 11:33 PM ROLL CONTOUR GRINDER Acti ve * RETIRED Are you blind or do you have serious difficulty seeing, even when wearing glasses? Answer Date of Assessment Author Status No 04/15/2021 11:33 PM ROLL CONTOUR GRINDER Acti ve * Do you have serious [...] Contact Info) Description 03/14/2024 11:45 AM ROLL CONTOUR GRINDER Office Visit [facility] [phone] Marvin Mckeon MD Three [facility] [address] [place] [address] 03/20/2024 11:30 AM ROLL CONTOUR GRINDER Office Visit [facility] Family Medicine - [place] [address] [place] [phone] Abiodun Segura II, MD [address] [place] [address] documented as of this encounter Visit Diagnoses Not on filedocumented in this encounter Additional Health Concerns Assessment Noted Time PHQ-9 Depression Total Score: 0 03/08/19 9:30 AM ROLL CONTOUR GRINDER documented as of this encounter Care Teams Steward/Stewardess Relationship Specialty Start Date End Date Abiodun Segura II, MD [address] [place] [phone] PCP - General FAMILY PRACTICE 03/09/21 documented as of this encounter
--- OUTSIDE RECORDS SUMMARY | 2024-03-03 01:27 | XMS_ITS | Encounter Summary ---
Author Organization [facility] Address [address] [place] [address]. [place], [place] [address] [place] [address] Care Team Providers Care Digital Account Executive Name Role Phone Colton SILVEIRA MD, Abiodun [...] Author Status No 04/15/2021 11:33 PM TUNNEL ELASTIC OPERATOR CHAINSTITCH Acti ve * RETIRED Are you blind or do you have serious difficulty seeing, even when wearing glasses? Answer Date of Assessment Author Status No 04/15/2021 11:33 PM TUNNEL ELASTIC OPERATOR CHAINSTITCH Acti ve * Do you have serious [...] Contact Info) Description 03/14/2024 11:45 AM TUNNEL ELASTIC OPERATOR CHAINSTITCH Office Visit [facility] [phone] Marvin Mckeon MD [facility] [address] [place], [place] [phone] 03/20/2024 11:30 AM TUNNEL ELASTIC OPERATOR CHAINSTITCH Office Visit [facility] Family Medicine - [place] [address] [place] [phone] Abiodun Segura II, MD [address] [place] [phone] documented as of this encounter Visit Diagnoses Not on filedocumented in this encounter Additional Health Concerns Assessment Noted Time PHQ-9 Depression Total Score: 0 03/08/19 9:30 AM TUNNEL ELASTIC OPERATOR CHAINSTITCH documented as of this encounter Care Teams Digital Account Executive Relationship Specialty Start Date End Date Abiodun Segura II, MD [address] [place] [address] PCP - General FAMILY PRACTICE 03/09/21 documented as of this encounter
--- OUTSIDE RECORDS SUMMARY | 2024-03-03 01:27 | XMS_ITS | Encounter Summary ---
Author Organization [facility] Address [address] [place] [address]. [place] [address] [place] [address] Care Team Providers Care Quality Control Systems Manager Name Role Phone Colton SILVEIRA MD, Abiodun Rushing Primary Care Provider Encounter Details Date Type Department Care Team (Late st Contact Info) Description 05/10/2021 11:45 AM CDT - 05/10/2021 11:59 PM CDT Hospital Encounter [facility] [place] [address] Abiodun Segura II, MD [address] [place] [address] Discharge Disposition: Home or Self Care [...] Assessment Author Status No 04/15/2021 11:33 PM UNIVERSITY ADMINISTRATIVE ASSISTANT Acti ve * RETIRED Are you blind or do you have serious difficulty seeing, even when wearing glasses? Answer Date of Assessment Author Status No 04/15/2021 11:33 PM UNIVERSITY ADMINISTRATIVE ASSISTANT Acti ve * Do you have [...] current use of insulin ([facility]) Inject 3 mg into the skin weekly. 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, with long-term current use of insulin ([facility]) USE 1 STRIP TO CHECK GLUCOSE [...] current use of insulin ([facility]) USE 1 SYRINGE SUBCUTANEOUSLY TWICE DAILY 100 each 5 1 01/02/20 simvastatin 40 MG tablet Take 40 mg by mouth nightly at bedtime. 7 07/12/19 22 SITagliptin 100 MG tabletIndications:T ype 2 diabetes mellitus with diabetic neuropathic arthropathy, with long-term current use of insulin ([facility] HHS/HCC) Take 1 tablet (100 mg total) [...] Contact Info) Description 03/14/2024 11:45 AM UNIVERSITY ADMINISTRATIVE ASSISTANT Office Visit [facility] [phone] Marvin Mckeon MD Three [facility] [address] [place] [address] 03/20/2024 11:30 AM UNIVERSITY ADMINISTRATIVE ASSISTANT Office Visit [facility] Family Medicine - [place] [address] [place] [phone] Abiodun Segura II, MD [address] [place] [address] documented as of this encounter Procedures Procedure [...] current use of insulin ([facility] HHS/HCC) documented in this encounter Results * (ABNORMAL) COMPREHENSIVE METABOLIC PANEL (05/10/2021 12:09 PM CDT) [facility] GLUCOSE 144(H) 70 - 99 MG/DL 05/10/2021 1:17 PM CDT [facility] BUN 18 7 - 18 MG/DL 05/10/2021 1:17 PM CDT [facility] CREATININE S/P/B 1.19(H) 0.55 - 1.02 MG/DL 05/10/2021 1:17 PM CDT [facility] SODIUM S/P/B 139 136 - 145 MMOL/L 05/10/2021 1:17 PM CDT [facility] POTASSIUM S/P/B 4.2 3.5 - 5.1 MMOL/L 05/10/2021 1:17 PM CDT [facility] CHLORIDE S/P/B 106 100 - 108 MMOL/L 05/10/2021 1:17 PM CDT [facility] CO2 30.1 21 - 32 MMOL/L 05/10/2021 1:17 PM CDT [facility] CALCIUM S/P/B 9.5 8.5 - 10.1 MG/DL 05/10/2021 1:17 PM CDT [facility] BILIRUBIN TOTAL S/P/B 0.5 0.2 - 1.2 MG/DL 05/10/2021 1:17 PM CDT [facility] Comment: THIS ASSAY IS NOT RECOMMENDED FOR PATIENTS UNDERGOING TREATMENT WITH ELTROMBOPAG DUE TO THE POTENTIAL FOR FALSELY ELEVATED RESULTS. TOTAL PROTEIN S/P/B 8.4(H) 6.4 - 8.2 G/DL 05/10/2021 1:17 PM CDT [facility] ALBUMIN S/P/B 3.7 3.4 - 5.0 G/DL 05/10/2021 1:17 PM CDT [facility] AST 17 15 - 37 U/L 05/10/2021 1:17 PM CDT [facility] ALT 26 14 - 55 U/L 05/10/2021 1:17 PM CDT [facility] ALKALINE PHOSPHATASE S/P/B 135 50 - 136 U/L 05/10/2021 1:17 PM CDT [facility] ANION GAP 2.9(L) 5 - 15 MMOL/L 05/10/2021 1:17 PM CDT [facility] BUN CREATININE RATIO 15.1 6 - 26 05/10/2021 1:17 PM CDT [facility] A/G RATIO 0.8(L) 1.0 - 2.0 RATIO 05/10/2021 1:17 PM CDT [facility] EGFR NON-AFR. AMER. 53(L) >90 ML/MIN/1.7 3 M2 05/10/2021 1:17 PM CDT [facility] EGFR AFR. AMER. 62(L) >90 ML/MIN/1.7 3 M2 05/10/2021 1:17 PM CDT [facility] Comment: NOTE: eGFR is not calculated for patients <18 years of age. This is an estimated GFR (CKD EPI) and should not be used for calculating drug doses. 05/10/2021 12:0 9 PM CDT us Abiodun Segura II, MD LABORATORY Final R esult [facility] [address] [place] [address], [place] [phone] * (ABNORMAL) ALBUMIN URINE RANDOM (05/10/2021 12:03 PM CDT) CREATININE (U) 149.0 28 - 217 MG/DL 05/10/2021 1:29 PM CDT [facility] MICROALBUMIN (U) 23.0(H) <2.0 mg/dL 05/10/2021 1:29 PM CDT [facility] ALBUMIN/CREAT RATIO 154.4(H) <30 MG/G 05/10/2021 1:29 PM CDT [facility] URINE SPECIMEN / Unknown 05/10/2021 12:03 PM CDT us Abiodun Segura II, MD URINE ORDERABLES Final Result [facility] [address] [place] [address], [place] [phone] * (ABNORMAL) URINALYSIS (05/10/2021 12:03 PM CDT) SPECIMEN TYPE URINE CLEAN CATCH 05/10/2021 11:57 AM CDT [facility] COLOR (U) LIGHT YELLOW 05/10/2021 1:13 PM CDT [facility] TRANSPARENCY CLEAR 05/10/2021 1:13 PM CDT [facility] SPECIFIC GRAVITY (U) 1.012 1.001 - 1.030 05/10/2021 1:13 PM CDT [facility] U PH 5.5 5.0 - 9.0 05/10/2021 1:13 PM CDT [facility] LEUKOCYTES (U) NEGATIVE NEGATIVE 05/10/2021 1:13 PM CDT [facility] NITRITES NEGATIVE NEGATIVE 05/10/2021 1:13 PM CDT [facility] PROTEIN (U) 30(H) <30 MG/DL 05/10/2021 1:13 PM CDT [facility] URINE GLUCOSE NORMAL NORMAL MG/DL 05/10/2021 1:13 PM CDT [facility] KETONES MG/DL (U) NEGATIVE NEGATIVE MG/DL 05/10/2021 1:13 PM CDT [facility] UROBILINOGEN NORMAL NORMAL MG/DL 05/10/2021 1:13 PM CDT [facility] BILIRUBIN (U) NEGATIVE NEGATIVE MG/DL 05/10/2021 1:13 PM CDT [facility] BLOOD (U) NEGATIVE NEGATIVE 05/10/2021 1:13 PM CDT [facility] MUCUS RARE /LPF 05/10/2021 1:13 PM CDT [facility] HYALINE CASTS RARE /LPF 05/10/2021 1:13 PM CDT [facility] WBC/HPF 1 <6 /HPF 05/10/2021 1:13 PM CDT [facility] RBC/HPF <1 <6 /HPF 05/10/2021 1:13 PM CDT [facility] SQUAMOUS EPITHELIALS RARE /HPF 05/10/2021 1:13 PM CDT [facility] URINE SPECIMEN OBTAINED BY CLEAN CATCH PROCEDURE / Unknown 05/10/2021 12:03 PM CDT Abiodun Segura II, MD URINE ORDERABLES Final Result [facility] [address] [place] [address], [place] [phone] documented in this encounter Visit Diagnoses Diagnosis 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 Hydronephrosis with ureteral stricture, not elsewhere classified Primary hypertension Unspecified essential hypertension Type 2 diabetes mellitus with diabetic neuropathic arthropathy, with long-term current use of insulin ([facility] HHS/HCC) documented in this encounter Additional Health Concerns Assessment Noted Time PHQ-9 Depression Total Score: 0 03/08/19 9:30 AM UNIVERSITY ADMINISTRATIVE ASSISTANT documented as of this encounter Care Teams Quality Control Systems Manager Relationship Specialty Start Date End Date Abiodun Segura II, MD [address] [place] [address] PCP - General FAMILY PRACTICE 03/09/21 documented as of this encounter
--- OUTSIDE RECORDS SUMMARY | 2024-03-03 01:27 | XMS_ITS | Encounter Summary ---
Author Organization [facility] Address [address] [place] [address]. [place] [address] [place] [address] Care Team Providers Care Identity Access Management Architect Name Role Phone Colton SILVEIRA MD, Abiodun Rushing Primary Care Provider Encounter Details Date Type Department Care Team (Late st Contact Info) Description 04/29/2021 2:09 PM VINER OPERATOR - 04/29/2021 11:59 PM [facility] Hospital Encounter [facility] [place] [id number] Abiodun Segura II, MD [address] [place] [address] Discharge Disposition: Home or Self Care [...] Coronavirus/COVID-19? No / Unsure 04/29/2021 2:08 PM VINER OPERATOR documented as of this encounter Functional Status * RETIRED Are you deaf or do you have serious difficulty hearing Answer Date of Assessment Author Status No 04/15/2021 11:33 PM VINER OPERATOR Acti ve * RETIRED Are you blind or do you have serious difficulty seeing, even when wearing glasses? Answer Date of Assessment Author Status No 04/15/2021 11:33 PM VINER OPERATOR Acti ve * Do you have [...] long-term current use of insulin ([facility]) Inject 3 mg into the skin weekly. 12 pen 3 2 01/07/20 Glucose Blood test stripIndications:Ty pe 2 diabetes mellitus with diabetic neuropathic arthropathy, with long-term current use of insulin ([facility]) USE 1 STRIP TO CHECK [...] long-term current use of insulin ([facility]) USE 1 SYRINGE SUBCUTANEOUSLY TWICE [...] appointment and make adjustments if needed. R OPERATOR documented in this encounter Plan of Treatment Upcoming Encounters Date Type Department Care Team (Late st Contact Info) Description 03/14/2024 11:45 AM VINER OPERATOR Office Visit [facility] [phone] Marvin Mckeon MD Three [facility] [address] [place] [phone] 03/20/2024 11:30 AM VINER OPERATOR Office Visit [facility] Family Medicine - [address] [phone] Abiodun Segura II, MD [address] [place] [address] documented as of this encounter Procedures Procedure Name Priority Date/Time Associated Diagnosis Comments COMPREHENSIVE METABOLIC PANEL Routine 04/29/2021 2:15 PM VINER OPERATOR HEMA (acute kidney injury) documented in this encounter Results * (ABNORMAL) COMPREHENSIVE METABOLIC PANEL (04/29/2021 2:15 PM VINER OPERATOR) GLUCOSE 219(H) 70 - 99 MG/DL 04/29/2021 3:02 PM VINER OPERATOR [facility] BUN 18 7 - 18 MG/DL 04/29/2021 3:02 PM VINER OPERATOR [facility] CREATININE S/P/B 1.14(H) 0.55 - 1.02 MG/DL 04/29/2021 3:02 PM [facility] SODIUM S/P/B 139 136 - 145 MMOL/L 04/29/2021 3:02 PM [facility] POTASSIUM S/P/B 4.5 3.5 - 5.1 MMOL/L 04/29/2021 3:02 PM [facility] CHLORIDE S/P/B 107 100 - 108 MMOL/L 04/29/2021 3:02 PM [facility] CO2 29.1 21 - 32 MMOL/L 04/29/2021 3:02 PM [facility] CALCIUM S/P/B 9.9 8.5 - 10.1 MG/DL 04/29/2021 3:02 PM [facility] BILIRUBIN TOTAL S/P/B 0.3 0.2 - 1.2 MG/DL 04/29/2021 3:02 PM [facility] Comment: THIS ASSAY IS NOT RECOMMENDED FOR PATIENTS UNDERGOING TREATMENT WITH ELTROMBOPAG DUE TO THE POTENTIAL FOR FALSELY ELEVATED RESULTS. TOTAL PROTEIN S/P/B 8.5(H) 6.4 - 8.2 G/DL 04/29/2021 3:02 PM [facility] ALBUMIN S/P/B 3.4 3.4 - 5.0 G/DL 04/29/2021 3:02 PM [facility] AST 14(L) 15 - 37 U/L 04/29/2021 3:02 PM [facility] ALT 24 14 - 55 U/L 04/29/2021 3:02 PM [facility] ALKALINE PHOSPHATASE S/P/B 127 50 - 136 U/L 04/29/2021 3:02 PM [facility] ANION GAP 2.9(L) 5 - 15 MMOL/L 04/29/2021 3:02 PM VINER OPERATOR [facility] CREATININE RATIO 15.8 6 - 26 04/29/2021 3:02 PM VINER OPERATOR [facility] A/G RATIO 0.7(L) 1.0 - 2.0 RATIO 04/29/2021 3:02 PM VINER OPERATOR [facility] EGFR NON-AFR. AMER. 56(L) >90 ML/MIN/1.7 3 M2 04/29/2021 3:02 PM VINER OPERATOR [facility] EGFR AFR. AMER. 65(L) >90 ML/MIN/1.7 3 M2 04/29/2021 3:02 PM VINER OPERATOR [facility] Comment: NOTE: eGFR is not calculated for patients <18 years of age. This is an estimated GFR (CKD EPI) and should not be used for calculating drug doses. 04/29/2021 2:15 PM VINER OPERATOR Abiodun Segura II, MD LABORATORY Final R esult [facility] [address] [place] [address], documented in this encounter Visit Diagnoses Diagnosis HEMA (acute kidney injury) (CMS/HCC) Acute kidney failure, unspecified documented in this encounter Additional Health Concerns Assessment Noted Time PHQ-9 Depression Total Score: 0 03/08/19 9:30 AM VINER OPERATOR documented as of this encounter Care Teams Identity Access Management Architect Relationship Specialty Start Date End Date Abiodun Segura II, MD [address] [place] [phone] PCP - General FAMILY PRACTICE 03/09/21 documented as of this encounter
--- OUTSIDE RECORDS SUMMARY | 2024-03-03 01:27 | XMS_ITS | Encounter Summary ---
Author Organization [facility] Address [address] [place] [address]. [place] [address] [place] [address] Care Team Providers Care Company Driver Name Role Phone Colton SILVEIRA MD, Abiodun Rushing Primary Care Provider Reason for Visit * Reason Onset Date Comments UTI 06/20/2021 Encounter Details Date Type Department Care Team (Late st Contact Info) Description 06/20/2021 Telephone [facility] Family Medicine - [place] 100 [place] [address] Abiodun Segura II, MD 100 [place] [address] UTI Social History Tobacco Use [...] Assessment Author Status No 04/15/2021 11:33 PM FIBERGLASS DOWEL DRAWING OPERATOR Acti ve * RETIRED Are you blind or do you have serious difficulty seeing, even when wearing glasses? Answer Date of Assessment Author Status No 04/15/2021 11:33 PM FIBERGLASS DOWEL DRAWING OPERATOR Acti ve * Do you have [...] st Contact Info) Description 03/14/2024 11:45 AM FIBERGLASS DOWEL DRAWING OPERATOR Office Visit [facility] [phone] Marvin Mckeon MD Three [facility] [address] [place] [address] 03/20/2024 11:30 AM FIBERGLASS DOWEL DRAWING OPERATOR Office Visit [facility] Medical Group Family Medicine - [place] 100 [place] [phone] Abiodun Segura II, MD [address] [place] [address] documented as of this encounter Visit Diagnoses Diagnosis Acute cystitis without hematuria- Primary Acute cystitis Candidiasis of genitalia in female Candidiasis of vulva and vagina documented in this encounter Additional Health Concerns Assessment Noted Time PHQ-9 Depression Total Score: 0 03/08/19 9:30 AM FIBERGLASS DOWEL DRAWING OPERATOR documented as of this encounter Care Teams Company Driver Relationship Specialty Start Date End Date Abiodun Segura II, MD 100 [place] [address] PCP - General FAMILY PRACTICE 03/09/21 documented as of this encounter
--- OUTSIDE RECORDS SUMMARY | 2024-03-03 01:28 | XMS_ITS | Encounter Summary ---
Author Organization [facility] Address [address] [place] [address]. [place], [place] [address] [place] [address] Care Team Providers Care Strand Forming Machine Operator Name Role Phone Colton SILVEIRA [...] COVID-19? No / Unsure 12/30/2020 10:03 AM RN IV THERAPY documented as of this encounter Functional Status [...] st Contact Info) Description 03/14/2024 11:45 AM RN IV THERAPY Office Visit [facility] [phone] Marvin Mckeon MD [facility] [address] [place] [phone] 03/20/2024 11:30 AM RN IV THERAPY Office Visit [facility] Medical [facility] Family Medicine - [place] 100 [place] [phone] Abiodun Segura II, MD [address] [place] [phone] documented as of this encounter Visit Diagnoses Not on filedocumented in this encounter Additional Health Concerns Assessment Noted Time PHQ-9 Depression Total Score: 0 10/09/19 21 10:02 AM CDT documented as of this encounter Care Teams Strand Forming Machine Operator Relationship Specialty Start Date End Date Abiodun Segura II, MD 100 [place] [address] PCP - General FAMILY PRACTICE 12/06/20 01/16/21 documented as of this encounter
--- OUTSIDE RECORDS SUMMARY | 2024-03-03 01:28 | XMS_ITS | Encounter Summary ---
Author Organization [facility] Address [address] [place] [address]. [place], [place] [address] [place] [address] Care Team Providers Care District Plant Supervisor Name Role Phone Colton SILVEIRA MD, [...] st Contact Info) Description 03/14/2024 11:45 AM CUTTING ROOM SUPERVISOR Office Visit [facility] [phone] Marvin Mckeon MD [facility] [address] [place], [place] [phone] 03/20/2024 11:30 AM CUTTING ROOM SUPERVISOR Office Visit [facility] Medical [facility] Family Medicine - [place] 100 [place] [phone] Abiodun Segura II, MD [address] [place] [phone] documented as of this encounter Visit Diagnoses Not on filedocumented in this encounter Additional Health Concerns Assessment Noted Time PHQ-9 Depression Total Score: 0 10/09/19 21 10:02 AM CDT documented as of this encounter Care Teams District Plant Supervisor Relationship Specialty Start Date End Date Abiodun Segura II, MD 100 [place] [address] PCP - General FAMILY PRACTICE 12/06/20 01/16/21 documented as of this encounter
--- OUTSIDE RECORDS SUMMARY | 2024-03-03 01:28 | XMS_ITS | Encounter Summary ---
Author Organization [facility] Address [address] [place] [address]. [place], [place] [address] [place] [address] Care Team Providers Care Rug Clipper Name Role Phone Colton SILVEIRA MD, Abiodun [...] Coronavirus/COVID-19? No / Unsure 04/13/2021 9:54 AM UNMANNED EQUIPMENT OPERATOR documented as of this encounter [...] st Contact Info) Description 03/14/2024 11:45 AM UNMANNED EQUIPMENT OPERATOR Office Visit [facility] [phone] [facility] [address] [place], [place] [phone] 03/20/2024 11:30 AM UNMANNED EQUIPMENT OPERATOR Office Visit [facility] Medical [facility] Family Medicine - [place] 100 [place] [phone] Abiodun Segura II, MD [address] [place] [phone] documented as of this encounter Visit Diagnoses Not on filedocumented in this encounter Additional Health Concerns Assessment Noted Time PHQ-9 Depression Total Score: 0 03/08/19 9:30 AM UNMANNED EQUIPMENT OPERATOR documented as of this encounter Care Teams Rug Clipper Relationship Specialty Start Date End Date Abiodun Segura II, MD 100 [place] [address] PCP - General FAMILY PRACTICE 03/09/21 documented as of this encounter
--- OUTSIDE RECORDS SUMMARY | 2024-03-03 01:28 | XMS_ITS | Encounter Summary ---
Author Organization [facility] Address [address] [place] [address]. [place], [place] [address] [place] [address] Care Team Providers Care Fire Fighter Airport Name Role Phone Colton SILEVIRA MD, Abiodun Rushing Primary Care Provider Encounter [...] Coronavirus/COVID-19? No / Unsure 04/15/2021 11:21 PM COMPLIANCE TESTER documented as of this encounter Functional Status * Question Answer Date of Assessment Author Status Do you have serious difficulty walking or climbing stairs? No 04/15/2021 11:33 PM COMPLIANCE TESTER Erica Pope RN A ctive * Question [...] st Contact Info) Description 03/14/2024 11:45 AM COMPLIANCE TESTER Office Visit [facility] [phone] Marvin Mckeon MD Three [facility] [address] [place] [address] 03/20/2024 11:30 AM COMPLIANCE TESTER Office Visit [facility] Medical [facility] Family Medicine - [place] 100 [place] [phone] Abiodun Segura II, MD 100 [place] [address] documented as of this encounter Visit Diagnoses Not on filedocumented in this encounter Additional Health Concerns Assessment Noted Time PHQ-9 Depression Total Score: 0 03/08/19 9:30 AM COMPLIANCE TESTER documented as of this encounter Care Teams Fire Fighter Airport Relationship Specialty Start Date End Date Abiodun Segura II, MD 100 [place], [place] [phone] PCP - General FAMILY PRACTICE 03/09/21 documented as of this encounter
--- OUTSIDE RECORDS SUMMARY | 2024-03-03 01:28 | XMS_ITS | Encounter Summary ---
Author Organization [facility] Address [address] [place] [address]. [place], [place] [address] [place] [address] Care Team Providers Care Cavity Pump Operator Name Role Phone Colton SILVEIRA [...] COVID-19? No / Unsure 03/21/2021 9:39 AM FEEDER/FOLDER documented as of this encounter Functional Status [...] st Contact Info) Description 03/14/2024 11:45 AM FEEDER/FOLDER Office Visit [facility] [phone] Marvin Mckeon MD [facility] [address] [place] [phone] 03/20/2024 11:30 AM FEEDER/FOLDER Office Visit [facility] Medical Group Family Medicine - [place] 100 [place] [phone] Abiodun Segura II, MD [address] [place] [phone] documented as of this encounter Visit Diagnoses Not on filedocumented in this encounter Additional Health Concerns Assessment Noted Time PHQ-9 Depression Total Score: 0 03/08/19 9:30 AM FEEDER/FOLDER documented as of this encounter Care Teams Cavity Pump Operator Relationship Specialty Start Date End Date Abiodun Segura II, MD [facility] [place] [address] PCP - General FAMILY PRACTICE 03/09/21 documented as of this encounter
--- OUTSIDE RECORDS SUMMARY | 2024-03-03 01:28 | XMS_ITS | Encounter Summary ---
Author Organization [facility] Address [address] [place] [address]. [place], [place] [address] [place] [address] Care Team Providers Care Contracts Attorney Name Role Phone Jarred Rod MD Primary [...] COVID-19? No / Unsure 01/24/2021 11:10 AM HIGH SCHOOL SCIENCE TEACHER documented as of this encounter Functional [...] st Contact Info) Description 03/14/2024 11:45 AM HIGH SCHOOL SCIENCE TEACHER Office Visit [facility] [phone] Marvin Mckeon MD Three [facility] [address] [place] [address] 03/20/2024 11:30 AM HIGH SCHOOL SCIENCE TEACHER Office Visit [facility] Medical Group Family Medicine - [place] 100 [place] [phone] Abiodun Segura II, MD 100 [place] [address] documented as of this encounter Visit Diagnoses Not on filedocumented in this encounter Additional Health Concerns Assessment Noted Time PHQ-9 Depression Total Score: 0 10/09/19 21 10:02 AM CDT documented as of this encounter Care Teams Contracts Attorney Relationship Specialty Start Date End Date Jarred Rod MD PCP - General FAMILY PRACTICE 01/17/21 03/08/21 documented as of this encounter
--- OUTSIDE RECORDS SUMMARY | 2024-03-03 01:28 | XMS_ITS | Encounter Summary ---
Author Organization [facility] Address [address] [place] [address]. [place] [address] [place] [address] Care Team Providers Care Sound Art Instructor Name Role Phone Colton SILVEIRA MD, Abiodun Rushing Primary Care Provider Reason for Visit * Reason Onset Date Comments Pre-visit Gap Closure 04/27/2021 Encounter Details Date Type Department Care Team (Late st Contact Info) Description 04/27/2021 Telephone [facility] Medical Group Family Medicine - [place] 100 [place] [address] Abiodun Segura II, MD 100 [place] [address] Pre-visit Gap Closure Social History [...] Coronavirus/COVID-19? No / Unsure 04/20/2021 9:45 AM TREE INSPECTOR documented as of this encounter Functional Status * RETIRED Are you deaf or do you have serious difficulty hearing Answer Date of Assessment Author Status No 04/15/2021 11:33 PM TREE INSPECTOR Acti ve * RETIRED Are you blind or do you have serious difficulty seeing, even when wearing glasses? Answer Date of Assessment Author Status No 04/15/2021 11:33 PM TREE INSPECTOR Acti ve * Do you have serious difficulty walking or climbing stairs? Answer Date of Assessment Author Status No 04/15/2021 11:33 PM TREE INSPECTOR Erica Pope RN Active * Do you have difficulty dressing or bathing? Answer Date of Assessment Author Status No 04/15/2021 11:33 PM TREE INSPECTOR Erica Pope RN Active * Because of a physical, mental, or emotional condition, do you have difficulty doing errands alone such as visiting a doctor's office or shopping? Answer Date of Assessment Author Status No 04/15/2021 11:33 PM TREE INSPECTOR Erica Pope RN Active documented as of [...] Standard Work Program. My direct extension is 4312. You can also reach me at: [phone] ([facility]) OR [phone] ([facility]) INSPECTOR documented in this encounter Plan of Treatment Upcoming Encounters Date Type Department Care Team (Late st Contact Info) Description 03/14/2024 11:45 AM TREE INSPECTOR Office Visit [facility] [phone] Marvin Mckeon MD Three [facility] [address] [place] [address] 03/20/2024 11:30 AM TREE INSPECTOR Office Visit [facility] Medical Group Family Medicine - [place] 100 [place] [phone] Abiodun Segura II, MD 100 [place] [address] documented as of this encounter Visit Diagnoses Not on filedocumented in this encounter Additional Health Concerns Assessment Noted Time PHQ-9 Depression Total Score: 0 03/08/19 9:30 AM TREE INSPECTOR documented as of this encounter Care Teams Sound Art Instructor Relationship Specialty Start Date End Date Abiodun Segura II, MD [address] [place] [address] PCP - General FAMILY PRACTICE 03/09/21 documented as of this encounter
--- OUTSIDE RECORDS SUMMARY | 2024-03-03 01:28 | XMS_ITS | Encounter Summary ---
Author Organization [facility] Address [address] [place] [address]. 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) Right foot pain Left foot pain Other abnormalities of gait and mobility Localized edema Procedures USV ART REST W ADRIANA LOW EXT USV ART DUPLEX [place] [address] [address] [facility] [place] [address] Phone: tel: fax: Referral ID Status Reason Start Date Expiration Date Visits Re quested Visits Authorized [id number] Closed 01/17/2021 02/16/2022 1 1 GATHERER Reason for Visit * Imaging (Routine) - Closed Specialty Diagnoses / Procedures Referred By Contac t Referred To Contact RADIOLOGY Diagnoses 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) Right foot pain Left foot pain Other abnormalities of gait and mobility Localized edema Procedures USV ART REST W ADRIANA LOW EXT USV ART [place]UPLEX [place] [address] [address] [facility] [place] [address] Phone: tel: fax: Referral ID Status Reason Start Date Expiration Date Visits Re quested Visits Authorized [id number] Closed 01/17/2021 02/16/2022 1 1 Encounter Details Date Type Department Care Team (Latest Contact Info) Description 01/24/2021 11:00 AM PALM GATHERER - 01/24/2021 11:59 PM PALM GATHERER Hospital Encounter [facility] [place] [address] [place] [address] [place] [address] Discharge Disposition: Home or Self Care (Routine [...] COVID-19? No / Unsure 01/24/2021 11:10 AM PALM GATHERER documented as of this encounter Functional Status [...] arthropathy, with long-term current use of insulin ([facility]) USE 1 SYRINGE SUBCUTANEOUSLY TWICE DAILY [...] arthropathy, with long-term current use of insulin ([facility]) INJECT 1.5 MG SUBCUTANEOUSLY ONCE EVERY 7 DAYS 4 mL 1 1 03/21/19 22 documented as of this encounter Plan of Treatment Upcoming Encounters Date Type Department Care Team (Late st Contact Info) Description 03/14/2024 11:45 AM PALM GATHERER Office Visit [facility] [address] Marvin Mckeon MD Three [facility] [address] [place], [place] [phone] 03/20/2024 11:30 AM PALM GATHERER Office Visit [facility] Medical Group Family Medicine - [place] 100 [place] [phone] Abiodun Segura II, MD 100 [place], [place] [address] documented as of this encounter Procedures Procedure Name Priority Date/Time Associated Diagnosis Comments USV ART REST W ADRIANA LOW EXT Routine 01/24/2021 12:34 PM PALM GATHERER 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 VASCULAR LAB Pat.Name: ??LENA YOUNGBLOOD ?Pat.ID: ?[id number] ? St.Date: ?? 01/24/2021 ? 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
--- OUTSIDE RECORDS SUMMARY | 2024-03-03 01:28 | XMS_ITS | Encounter Summary ---
Author Organization [facility] Address [address] [place] [address]. [place], [place] [address] [place] [address] Care Team Providers Care Star Route Mail Driver Name Role Phone Jarred Rod MD Primary [...] COVID-19? No / Unsure 01/17/2021 11:26 AM HONEY BLENDER documented as of this encounter Functional Status [...] st Contact Info) Description 03/14/2024 11:45 AM HONEY BLENDER Office Visit [facility] [phone] Marvin Mckeon MD Three [facility] [address] [place] [address] 03/20/2024 11:30 AM HONEY BLENDER Office Visit [facility] Medical Group Family Medicine - [place] 100 [place] [phone] Abiodun Segura II, MD 100 [place] [address] documented as of this encounter Visit Diagnoses Not on filedocumented in this encounter Additional Health Concerns Assessment Noted Time PHQ-9 Depression Total Score: 0 10/09/19 21 10:02 AM CDT documented as of this encounter Care Teams Star Route Mail Driver Relationship Specialty Start Date End Date Jarred Rod MD PCP - General FAMILY PRACTICE 01/17/21 03/08/21 documented as of this encounter
--- OUTSIDE RECORDS SUMMARY | 2024-03-03 01:28 | XMS_ITS | Encounter Summary ---
Author Organization [facility] Address [address] [place] [address]. [place], [place] [address] [place] [address] Care Team Providers Care Tunnel Drier Operator Name Role Phone Colton SILVEIRA MD, Yasmin Rushing Primary Care Provider Reason for Referral * Physical Medicine (Routine) - Closed Specialty Diagnoses / Procedures Referred By Contact Referred To Contact PHYSICAL THERAPY / [facility] Physical Therapy Diagnoses Chronic bilateral low back pain without sciatica Audie Vides PA-C [address] [place] [address] Phone: tel: fax: [facility] [place] [address] Phone: tel: fax: Referral ID Status Reason Start Date Expiration Date V isits Requested Visits Authorized [id number] Closed Physical Therapy 12/14/2020 01/13/2022 10 10 Reason for Visit * Reason Comments Back Pain for x3 months, lower back pain Encounter Details Date Type Department Care Team (Late st Contact Info) Description 12/14/2020 10:30 AM CDT Office Visit [facility] Medical Group Family Medicine - [place] [phone] Audie Vides PA-C [address] [place] [address]. [place] [address] Back Pain (for x3 months, [...] has been there about 4 weeks. [facility] scheduled [facility] [...] Gatherings with Friends and Family: ??? Attends Mandaeism Services: ??? Active Member of Clubs or [...] PT for back pain. She will see [facility] hand next week for toe callus. She is aware that she needs to go to ER if any signs of infection before her apt next week with [facility] hand. She will keep her follow up apt [...] Jarred Rod MD at 12/29/2020 5:27 PM TRIAGE TECHNICIAN GE TECHNICIAN documented in this encounter Plan of Treatment Upcoming Encounters Date Type Department Care Team (Late st Contact Info) Description 03/14/2024 11:45 AM TRIAGE TECHNICIAN Office Visit [facility] [address] Marvin Mckeon MD [address] [facility] [address] [place] [address] 03/20/2024 11:30 AM TRIAGE TECHNICIAN Office Visit [facility] Medical Group Family Medicine - [place] 100 [place] [phone] Yasmin Segura II, MD 100 [place] [address] Scheduled Referrals Name Type Priority Associated Diagnoses [...] documented as of this encounter Care Teams Tunnel Drier Operator Relationship Specialty Start Date End Date Yasmin Segura II, MD [address] [place] [phone] PCP - General FAMILY PRACTICE 12/06/20 01/16/21 documented as of this encounter
--- OUTSIDE RECORDS SUMMARY | 2024-03-03 01:28 | XMS_ITS | Encounter Summary ---
Author Organization [facility] Address [address] [place] [address]. [place] [address] [place] [address] Care Team Providers Care Assistant Golf Coach Name Role Phone Colton SILVEIRA MD, Abiodun Rushing Primary Care Provider Reason for Visit * Physical Medicine (Routine) - Closed Specialty Diagnoses / Procedures Referred By Contact Referred To Contact PHYSICAL THERAPY / [facility] Physical Therapy Diagnoses Chronic bilateral low back pain without sciatica Shira Shi PA-C [address] [place] [address] Phone: tel: fax: [facility] [place] [address] Phone: tel: fax: Referral ID Status Reason Start Date Expiration Date V isits Requested Visits Authorized [id number] Closed Physical Therapy 12/14/2020 01/13/2022 10 10 Encounter Details Date Type Department Care Team (Late st Contact Info) Description 12/30/2020 10:05 AM CHIEF UNIT FORESTER - 12/30/2020 11:59 PM [facility] Hospital Encounter [facility] [place], [place] [phone] Abiodun Segura II, MD [address] [place] [address] Tracey Walker, [place] [address] Discharge Disposition: Home or Self Care (Routine [...] COVID-19? No / Unsure 12/30/2020 10:03 AM CHIEF UNIT FORESTER documented as of this encounter Functional Status [...] Tracey Walker, PT - 12/30/2020 10:15 AM CHIEF UNIT FORESTER Access Code: [email or web address] URL: [email or web address] Date: 12/30/2020 Prepared by: Tracey Walker Exercises [...] Education ?? Office Posture ?? Sleep Positions F UNIT FORESTER documented in this encounter Medications at Time [...] current use of insulin ([facility]) USE 1 SYRINGE SUBCUTANEOUSLY TWICE [...] current use of insulin ([facility]) INJECT 1.5 MG SUBCUTANEOUSLY ONCE [...] Shira Shi PA-C at 01/02/2021 9:20 PM CHIEF UNIT FORESTER F UNIT FORESTER F UNIT FORESTER documented in this encounter Plan of Treatment Upcoming Encounters Date Type Department Care Team (Late st Contact Info) Description 03/14/2024 11:45 AM CHIEF UNIT FORESTER Office Visit [facility] [phone] Marvin Mckeon MD Three [facility] [address] [place] [address] 03/20/2024 11:30 AM CHIEF UNIT FORESTER Office Visit [facility] Family Medicine - [address] [place] [phone] Abiodun Segura II, MD [address] [place] [address] documented as of this encounter Visit Diagnoses Diagnosis Back pain- Primary Backache, unspecified DDD (degenerative disc disease), lumbar Degeneration of lumbar or lumbosacral intervertebral disc Altered gait Abnormality of gait documented in this encounter Additional Health Concerns Assessment Noted Time PHQ-9 Depression Total Score: 0 10/09/19 21 10:02 AM CDT documented as of this encounter Care Teams Assistant Golf Coach Relationship Specialty Start Date End Date Abiodun Segura II, MD [address] [place] [address] PCP - General FAMILY PRACTICE 12/06/20 01/16/21 documented as of this encounter
--- OUTSIDE RECORDS SUMMARY | 2024-03-03 01:28 | XMS_ITS | Encounter Summary ---
Author Organization [facility] Address [address] [place] [address]. [place], [place] [address] [place] [address] Care Team Providers Care Wig Stylist Name Role Phone Jarred Rod MD Primary [...] COVID-19? No / Unsure 03/08/2021 9:11 AM ALMOND GRINDER documented as of this encounter Functional [...] st Contact Info) Description 03/14/2024 11:45 AM ALMOND GRINDER Office Visit [facility] [phone] Marvin Mckeon MD Three [facility] [address] [place] [address] 03/20/2024 11:30 AM ALMOND GRINDER Office Visit [facility] Family Medicine - [place] [address] [place] [phone] Abiodun Seugra II, MD [address] [place] [address] documented as of this encounter Visit Diagnoses Not on filedocumented in this encounter Additional Health Concerns Assessment Noted Time PHQ-9 Depression Total Score: 0 03/08/19 9:30 AM ALMOND GRINDER documented as of this encounter Care Teams Wig Stylist Relationship Specialty Start Date End Date Jarred Rod MD PCP - General FAMILY PRACTICE 01/17/21 03/08/21 documented as of this encounter
--- OUTSIDE RECORDS SUMMARY | 2024-03-03 01:28 | XMS_ITS | Encounter Summary ---
Author Organization [facility] Address [address] [place] [address]. [place], [place] [address] [place] [address] Care Team Providers Care Dairy Consultant Name Role Phone Jarred Rod MD [...] COVID-19? No / Unsure 02/23/2021 9:53 AM MOBILE UI DESIGNER documented as of this encounter Functional Status [...] Contact Info) Description 03/14/2024 11:45 AM MOBILE UI DESIGNER Office Visit [facility] [phone] Marvin Mckeon MD Three [facility] [address] [place] [address] 03/20/2024 11:30 AM MOBILE UI DESIGNER Office Visit [facility] Medical [facility] Family Medicine - [place] [address] [place] [phone] Abiodun Segura II, MD [address] [place] [address] documented as of this encounter Visit Diagnoses Not on filedocumented in this encounter Additional Health Concerns Assessment Noted Time PHQ-9 Depression Total Score: 0 10/09/19 21 10:02 AM CDT documented as of this encounter Care Teams Dairy Consultant Relationship Specialty Start Date End Date Jarred Rod MD PCP - General FAMILY PRACTICE 01/17/21 03/08/21 documented as of this encounter
--- OUTSIDE RECORDS SUMMARY | 2024-03-03 01:28 | XMS_ITS | Encounter Summary ---
Author Organization [facility] Address [address] [place] [address]. [place], [place] [address] [place] [address] Care Team Providers Care Master Certified Rv Technician Name Role Phone Colton SILVEIRA MD, [...] Coronavirus/COVID-19? No / Unsure 04/20/2021 9:45 AM WAFER POLISHER documented as of this encounter Functional Status * RETIRED Are you deaf or do you have serious difficulty hearing Answer Date of Assessment Author Status No 04/15/2021 11:33 PM WAFER POLISHER Acti ve * RETIRED Are you blind or do you have serious difficulty seeing, even when wearing glasses? Answer Date of Assessment Author Status No 04/15/2021 11:33 PM WAFER POLISHER Acti ve * Do you have serious [...] st Contact Info) Description 03/14/2024 11:45 AM WAFER POLISHER Office Visit [facility] [phone] Marvin Mckeon MD [facility] [address] [place] [phone] 03/20/2024 11:30 AM WAFER POLISHER Office Visit [facility] Medical [facility] Family Medicine - [place] [address] [place] [phone] Abiodun Segura II, MD [address] [place] [phone] documented as of this encounter Visit Diagnoses Not on filedocumented in this encounter Additional Health Concerns Assessment Noted Time PHQ-9 Depression Total Score: 0 03/08/19 9:30 AM WAFER POLISHER documented as of this encounter Care Teams Master Certified Rv Technician Relationship Specialty Start Date End Date Abiodun Segura II, MD [address] [place] [address] PCP - General FAMILY PRACTICE 03/09/21 documented as of this encounter
--- OUTSIDE RECORDS SUMMARY | 2024-03-03 01:28 | XMS_ITS | Encounter Summary ---
Author Organization [facility] Address [address] [place] [address]. [place], [place] [phone] [place] [address] Care Team Providers Care Hr Consultant Name Role Phone Jarred Rod MD [...] Coronavirus/COVID-19? No / Unsure 04/04/2022 11:24 AM DIVORCE LAWYER documented as of this encounter Functional Status [...] Status No 08/12/2019 3:00 AM CDT Totty, Shelyb A, R N Active * Do you [...] st Contact Info) Description 03/14/2024 11:45 AM DIVORCE LAWYER Office Visit [facility] [phone] Marvin Mckeon MD Three [facility] [address] [place] [address] 03/20/2024 11:30 AM DIVORCE LAWYER Office Visit [facility] Family Medicine - [place] 100 [place] [phone] Abiodun Segura II, MD [address] [place], [place] [phone] documented as of this encounter Procedures Procedure Name Priority Date/Time Associated Diagnosis Comments EGD GENERIC (SCAN ORDER) 11/18/2020 PATHOLOGY GENERIC (SCAN ORDER) 11/18/2020 COLONOSCOPY GENERIC (SCAN ORDER) 11/18/2020 documented in this encounter Results * EGD GENERIC (11/18/2020) 11/18/2020 [facility] Scanned SCANNING Final Resu lt * PATHOLOGY GENERIC (11/18/2020) 11/18/2020 [facility] Scanned SCANNING Final Resu lt * COLONOSCOPY GENERIC (11/18/2020) 11/18/2020 [facility] Scanned SCANNING Final Resu lt documented in this encounter Visit Diagnoses Not on filedocumented in this encounter Additional Health Concerns Infection Onset Date Last Indicated Resolved Time COVID-19 Rule Out 12/22/2021 12/22/2021 12/22/2021 6:31 AM CDT COVID-19 Rule Out 01/08/2022 01/08/2022 01/08/2022 6:50 PM DIVORCE LAWYER Assessment Noted Time PHQ-9 Depression Total Score: 0 10/09/19 10:02 AM CDT documented as of this encounter Care Teams Hr Consultant Relationship Specialty Start Date End Date Jarred Rod MD PCP - General FAMILY PRACTICE 11/18/20 12/05/20 Abiodun Segura II, MD [address] [place] [address] PCP - General FAMILY PRACTICE 12/06/20 01/16/21 Jarred Rod MD PCP - [facility] PRACTICE 01/17/21 03/08/21 Abiodun Segura II, MD [address] [place] [address] PCP - General FAMILY PRACTICE 03/09/21 documented as of this encounter
--- OUTSIDE RECORDS SUMMARY | 2024-03-03 01:28 | XMS_ITS | Encounter Summary ---
Author Organization [facility] Address [address] [place] [address]. [place] [address] [place] [address] Care Team Providers Care Senior Bookkeeper Name Role Phone Jarred Rod MD Primary Care Provider Unav ailable Reason for Visit * Reason Onset Date Comments UTI 02/17/2021 Encounter Details Date Type Department Care Team (Late st Contact Info) Description 02/17/2021 Telephone [facility] Family Medicine - [place] [phone] Jarred Rod MD UTI Social [...] COVID-19? No / Unsure 01/24/2021 11:10 AM WEED SCIENCE RESEARCH TECHNICIAN documented as of this encounter Functional [...] previously. Follow up as scheduled on Feb. SCIENCE RESEARCH TECHNICIAN * Sydney Cobos MA - 02/17/2021 4:01 PM CST Will you prescribe something for patient? Please advise SCIENCE RESEARCH TECHNICIAN * Hi Barrera - 02/17/2021 3:47 PM CST Pt Lena Mcneal called stating she has another UTI and wants another prescription for UTI called in she doesn't rember the name called in at [facility] in [place], [place] SCIENCE RESEARCH TECHNICIAN documented in this encounter Plan of Treatment Upcoming Encounters Date Type Department Care Team (Late st Contact Info) Description 03/14/2024 11:45 AM WEED SCIENCE RESEARCH TECHNICIAN Office Visit [facility] [phone] Marvin Mckeon MD Three [facility] [address] [place] [address] 03/20/2024 11:30 AM WEED SCIENCE RESEARCH TECHNICIAN Office Visit [facility] Family Medicine - [place] [address] [place] [phone] Abiodun Segura II, MD [address] [place], [place] [phone] documented as of this encounter Visit Diagnoses Diagnosis Cystitis- Primary Cystitis, unspecified Candidiasis of genitalia in female Candidiasis of vulva and vagina documented in this encounter Additional Health Concerns Assessment Noted Time PHQ-9 Depression Total Score: 0 10/09/19 21 10:02 AM CDT documented as of this encounter Care Teams Senior Bookkeeper Relationship Specialty Start Date End Date Jarred Rod MD PCP - General FAMILY PRACTICE 01/17/21 03/08/21 documented as of this encounter
--- OUTSIDE RECORDS SUMMARY | 2024-03-03 01:28 | XMS_ITS | Encounter Summary ---
Author Organization [facility] Address [address] [place] [address]. [place] [address] [place] [address] Care Team Providers Care Gang Plank Workman Name Role Phone Colton SILVEIRA MD, Yasmin Rushing Primary Care Provider Reason for Referral * Imaging (Emergency) - Closed Specialty Diagnoses / Procedures Referred By Lyla chaney Referred To Contact RADIOLOGY Procedures CT ABD+PEL W IV CON ONLY June Caputo NP Phone: tel: fax: Referral ID Status Reason Start Date Expiration Date Visits Re quested Visits Authorized [id number] Closed 04/15/2021 05/13/2022 1 1 W HAT PRESSER Reason for Visit * Reason Comments Abdominal Pain * Auth/Cert Specialty Diagnoses / Procedures Referred By Lyla chaney Referred To Contact Diagnoses Abdominal pain Renal stones Perceived constipation Bilateral renal stones Renal stones Procedures NONE Referral ID Status Reason Start Date Expiration Date Visits Re quested Visits Authorized [id number] 1 1 Encounter Details Date Type Department Care Team (Late st Contact Info) Description 04/15/2021 5:00 PM STRAW HAT PRESSER - 04/16/2021 2:00 PM STRAW HAT PRESSER Emergency [facility] [place] [address] Christ Coombs MD 1 [place] [address] [place] [address] [phone] (Work) Major Edmond MD 1 [place], [place] [phone] (Work) Abdominal Pain Discharge Disposition: Home [...] Coronavirus/COVID-19? No / Unsure 04/15/2021 11:21 PM STRAW HAT PRESSER documented as of this encounter Last Filed Vital Signs Vital Sign Reading Time Taken Comments Blood Pressure 150/85 04/16/2021 5:01 AM STRAW HAT PRESSER Pulse 99 04/15/2021 4:25 PM STRAW HAT PRESSER Temperature 36.1 ??C (96.9 ??F) 04/16/2021 5:01 AM CS T Respiratory Rate 20 04/16/2021 5:01 AM STRAW HAT PRESSER Oxygen Saturation 96% 04/16/2021 5:01 AM STRAW HAT PRESSER Inhaled Oxygen Concentration - - Weight 85.7 kg (189 lb) 04/15/2021 4:29 PM STRAW HAT PRESSER Height 167.6 cm (5' 6 ) 04/15/2021 4:29 PM STRAW HAT PRESSER Body Mass Index 30.51 04/15/2021 4:29 PM STRAW HAT PRESSER documented in this encounter Functional Status * [...] Status No 04/15/2021 11:33 PM STRAW HAT PRESSER Acti ve * RETIRED Are you blind or do you have serious difficulty seeing, even when wearing glasses? Answer Date of Assessment Author Status No 04/15/2021 11:33 PM STRAW HAT PRESSER Acti ve * Do you have serious [...] of NSAIDs T2DM c/b HLD, CKD3, on storage specialist insulin Continue home regimen Discussed importance of [...] No results for input(s): PH, PCO2, PO2, L6RRSISMVREZ, BICARBWB, BASEDEFICIT, BASEEXCESS in the [id number] hours. Results for orders placed or performed during the hospital encounter of 08/11/19 URINALYSIS, AUTO, COMPLETE Result Value Ref Range Specimen Type URINE CLEAN CATCH COLOR (U) LIGHT YELLOW TRANSPARENCY CLEAR Specific Oakes (U) 1.024 1.001 - 1.030 U PH [...] Portions of this note were dictated with [employer] medical dictation software. Misspellings, punctuation errors, omitted words or dictation variances may occur. Signed: MAJOR EDMOND MD W HAT PRESSER documented in this encounter Discharge Instructions * Discharge Instructions* Major Edmond MD - 04/16/2021 11:45 AM STRAW HAT PRESSER Images from the original note were not [...] learn more? Academy of Nutrition and Dietetics https://www.eatright.org/food/ydjmtitk-lky-tsxcawlhhra/fycykkyr-pkph-vrquh/fiber Academy of Nutrition and Dietetics https://www.eatright.org/food/xizjzmzz-wyb-dhfvdcssupl/ixdwl-jy-svnasuvs-and-nut rients/woyk-exyj-tm-drcfq-sowht-yq-dqld-rhyyh-umpi FamilyDoctor.org http://familydoctor.org/familydoctor/en/diseases-conditions/constipation.html National Digestive Diseases Information Clearinghouse [...] or approved for treating a specific patient. [employer]. and its affiliates disclaim any warranty or liability relating to this information or the use thereof. The use of this information is governed by the Terms of Use, available at https://www.[employer] Con[employer].com/en/solutions/lexicomp/about/moreno Copyright Copyright ?? 2020 [employer]. and its affiliates and/or licensors. All rights reserved. W HAT PRESSER documented in this encounter Medications at Time [...] arthropathy, with long-term current use of insulin ([facility]) Inject 3 mg into the skin [...] arthropathy, with long-term current use of insulin ([facility]) USE 1 SYRINGE SUBCUTANEOUSLY TWICE DAILY 100 each 5 1 01/02/20 Senna 8.6 MG tablet Take 2 tablets (17.2 mg total) by mouth 2 (two) times a day. 120 tablet 2 05/05/19 simvastatin 40 MG tablet Take 40 mg by mouth nightly at bedtime. 7 07/12/19 documented as of this encounter Progress Notes * Cindy Jefferson [facility] - 04/16/2021 1:42 PM CST Risk stratification per VTE protocol Risk stratified to Moderate Pharm contra added - pending procedure SCDs already ordered by provider W HAT PRESSER * Mirta Valles RN - 04/16/2021 12:51 [...] to: Home DME Needed at Discharge No W HAT PRESSER documented in this encounter H&P Notes * [...] No results for input(s): PH, PCO2, PO2, C2LAZCIHVREW, BICARBWB, BASEDEFICIT, BASEEXCESS in the [id number] hours. Imagining & Other Studies EKG-04/15/[address] Test Date: 2021-04-15 Pat Name: LENA YOUNGBLOOD Department: Room: [id number] Gender: Female Measurement Superintendent: JUSTIN : 1970 Requested By: WANDA LANGSTON Order Number: [id number] Reading MD: Measurements Intervals Jasper Rate: 92 P: 38 NC: 174 QRS: 11 QRSD: 89 T: 22 [...] By: Cem Caballero MD, 04/15/2021 10:33 PM PROCEDURE: CT [...] Noam Godoy MD at 04/16/2021 12:32 AM STRAW HAT PRESSER W HAT PRESSER W HAT PRESSER Associated attestation - Noam Godoy MD - 04/16/2021 12:32 AM STRAW HAT PRESSER Patient seen and examined. WATER/WASTEWATER PROJECT ENGINEER note reviewed. This is a 51-year-old female [...] Procedure Component Value Units Date/Time CULTURE URINE [[id number]] Collected: 04/15/211719 Order Status: Completed Lab Status: In process Updated: 04/15/211808 Microbiology Results (last 14 days) Procedure Component Value Units Date/Time CULTURE URINE [[id number]] Collected: 04/15/211719 Order Status: Completed Lab Status: [...] has previously seen Dr. Lucero In our [place] office and if she would like to continue to follow with him she can, or if she would prefer follow-up here in [place], she can follow up in our office here contact info as below -------- Douglas Paniagua M.D. Urology of [address] [address] [place] [address] W HAT PRESSER documented in this encounter ED Notes * [...] needed for Muscle Spasms. 03/21/21 05/20/21 Yes Yasmin Segura II, MD Dulaglutide (TRULICITY) [...] COLOR (U) LIGHT YELLOW TRANSPARENCY CLEAR Specific Oakes (U) 1.012 1.001 - 1.030 U PH [...] IV CON ONLY Final Result by User, [id number] (04/15 1936) PROCEDURE: CT ABD+PEL W CON [...] mm. Ordered By: JUNE CAPUTO Interpreted By: eMrcy Irving MD, 04/15/2021 7:28 PM XR CHEST [...] I dictated portions of this note using [employer] speech recognition software. Occasional wrong word or sound-alike substitutions may have occurred due to the inherent limitations of voice recognition software. Please read the chart carefully and recognize, using context, where the substitutions may have occurred. If there are any questions, please contact me via Doc Halo or other HIPAA compliant communication medium for clarification. Christ Coombs MD 04/15/212211 W HAT PRESSER * June Caputo NP - 04/15/2021 4:46 PM CST [place], [place] EMERGENCY DEPARTMENT ENCOUNTER Medical Screening Examination [...] Kvng Lewis MD at 04/15/2021 8:42 PM STRAW HAT PRESSER W HAT PRESSER W HAT PRESSER * Diana Allen RN - 04/15/2021 4:31 PM CST Patient c/o of ABD pain, n/v bloating and constipation. The symptoms started on 04/05 W HAT PRESSER documented in this encounter Plan of Treatment Upcoming Encounters Date Type Department Care Team (Late st Contact Info) Description 03/14/2024 11:45 AM STRAW HAT PRESSER Office Visit [facility] [phone] Marvin Mckeon MD [facility] [address] [place], [place] [id number] 03/20/2024 11:30 AM STRAW HAT PRESSER Office Visit [facility] - [place] [address] [place] [phone] Yasmin Segura II, MD [address] [place], [place] [phone] documented as of this encounter Procedures Procedure Name Priority Date/Time Associated Diagnosis Comments POCT GLUCOSE - CORREA DOCKED DEVICE Routine 04/16/2021 12:10 PM STRAW HAT PRESSER COMPREHENSIVE METABOLIC PANEL Routine 04/16/2021 6:44 AM STRAW HAT PRESSER CBC W/DIFF AUTOMATED Routine 04/16/2021 6:44 AM STRAW HAT PRESSER POCT GLUCOSE - CORREA DOCKED DEVICE Routine 04/16/2021 6:19 AM STRAW HAT PRESSER ECG 12-LEAD Routine 04/15/2021 10:40 PM STRAW HAT PRESSER XR CHEST PORTABLE STAT 04/15/2021 10: 30 PM STRAW HAT PRESSER BASIC METABOLIC PANEL STAT 04/15/2021 8:[address] ABD+PEL W CON STAT 04/15/2021 6:57 PM STRAW HAT PRESSER HC URINALYSIS AUTO W/O MICRO STAT 04/15/2021 5:21 PM STRAW HAT PRESSER URINE BACTERIA CULTURE Routine 5:20 PM STRAW HAT PRESSER COMPREHENSIVE METABOLIC PANEL STAT 04/15/2021 5:20 PM STRAW HAT PRESSER LACTIC ACID TIMED 04/15/2021 5:20 PM STRAW HAT PRESSER CBC W/DIFF AUTOMATED STAT 04/15/2021 5:20 PM STRAW HAT PRESSER LIPASE STAT 04/15/2021 5:20 PM STRAW HAT PRESSER documented in this encounter Results * (ABNORMAL) POCT glucose (04/16/2021 12:10 PM STRAW HAT PRESSER) GLUCOSE POC 155(H) 70 - 99 mg/dL 04/16/2021 12:13 PM STRAW HAT PRESSER [facility] 04/16/2021 12:1 0 PM STRAW HAT PRESSER Major Edmond MD POCT ORDERABLES - YSABEL CE Final Result [facility] [address] [place] [id number], * (ABNORMAL) COMPREHENSIVE METABOLIC PANEL (04/16/2021 6:44 AM STRAW HAT PRESSER) GLUCOSE 194(H) 70 - 99 MG/DL 04/16/2021 7:35 AM STRAW HAT PRESSER [facility] BUN 18 7 - 18 MG/DL 04/16/2021 7:35 AM STRAW HAT PRESSER [facility] CREATININE S/P/B 1.22(H) 0.55 - 1.02 MG/DL 04/16/2021 7:35 AM STRAW HAT PRESSER [facility] SODIUM S/P/B 136 136 - 145 MMOL/L 04/16/2021 7:35 AM STRAW HAT PRESSER [facility] POTASSIUM S/P/B 4.3 3.5 - 5.1 MMOL/L 04/16/2021 7:35 AM [facility] CHLORIDE S/P/B 105 100 - 108 MMOL/L 04/16/2021 7:35 AM [facility] CO2 25.7 21 - 32 MMOL/L 04/16/2021 7:35 AM [facility] CALCIUM S/P/B 9.0 8.5 - 10.1 MG/DL 04/16/2021 7:35 AM [facility] BILIRUBIN TOTAL S/P/B 0.3 0.2 - 1.2 MG/DL 04/16/2021 7:35 AM [facility] Comment: THIS ASSAY IS NOT RECOMMENDED FOR PATIENTS UNDERGOING TREATMENT WITH ELTROMBOPAG DUE TO THE POTENTIAL FOR FALSELY ELEVATED RESULTS. TOTAL PROTEIN S/P/B 7.9 6.4 - 8.2 G/DL 04/16/2021 7:35 AM [facility] ALBUMIN S/P/B 3.1(L) 3.4 - 5.0 G/DL 04/16/2021 7:35 AM [facility] AST 19 15 - 37 U/L 04/16/2021 7:35 AM [facility] ALT 25 14 - 55 U/L 04/16/2021 7:35 AM [facility] ALKALINE PHOSPHATASE S/P/B 122 50 - 136 U/L 04/16/2021 7:35 AM [facility] ANION GAP 5.3 5 - 15 MMOL/L 04/16/2021 7:35 AM [facility] BUN CREATININE RATIO 14.8 - 04/16/2021 7:35 AM [facility] A/G RATIO 0.6(L) 1.0 - 2.0 RATIO 04/16/2021 7:35 AM STRAW HAT PRESSER [facility] EGFR NON-AFR. AMER. 52(L) >90 ML/MIN/1.7 3 M2 04/16/2021 7:35 AM [facility] EGFR AFR. AMER. 60(L) >90 ML/MIN/1.7 3 M2 04/16/2021 7:35 AM [facility] Comment: NOTE: eGFR is not calculated for patients <18 years of age. This is an estimated GFR (CKD EPI) and should not be used for calculating drug doses. 04/16/2021 6:44 AM STRAW HAT PRESSER Wanda Langston INTERVENTIONAL RADIOLOGY TECHNOLOGIST LABORATORY Final Resul t [facility] [address] [place] [address], * (ABNORMAL) CBC W/DIFF AUTOMATED (04/16/2021 6:44 AM STRAW HAT PRESSER) WBC 7.3 4.5 - 11.0 x10'3/uL 04/16/2021 7:10 AM [facility] RBC 3.79(L) 4.20 - 5.40 x10'6/uL 04/16/2021 7:10 AM [facility] HGB 11.6(L) 12.0 - 16.0 G/DL 04/16/2021 7:10 AM [facility] HCT 35.0(L) 38.0 - 48.0 % 04/16/2021 7:10 AM [facility] MCV 92.3 81.0 - 99.0 FL 04/16/2021 7:10 AM [facility] MCH 30.6 27.0 - 31.0 PG 04/16/2021 7:10 AM [facility] MCHC 33.1 32.0 - 36.0 G/DL 04/16/2021 7:10 AM [facility] RDW 12.5 11.5 - 14.5 % 04/16/2021 7:10 AM [facility] PLT 265 130 - 400 x10'3/uL 04/16/2021 7:10 AM [facility] MPV 11.5 9.3 - 12.2 FL 04/16/2021 7:10 AM [facility] DIFFERENTIAL TYPE AUTOMATED DIFFERENTIAL 04/16/2021 7:10 AM [facility] NEUTROPHILS % 52.0 % 04/16/2021 7:10 AM [facility] LYMPHOCYTES % 40.9 % 04/16/2021 7:10 AM [facility] MONOCYTES % 5.0 % 04/16/2021 7:10 AM [facility] EOSINOPHILS 1.5 % 04/16/2021 7:10 AM [facility] BASOPHILS 0.5 % 04/16/2021 7:10 AM [facility] IMMATURE GRANS % 0.1 % 04/16/19 7:10 AM [facility] ABS. NEUTROPHILS TOTAL 3.81 1.80 - 7.70 x10'3/uL 04/16/2021 7:10 AM [facility] ABS. LYMPHOCYTES 3.00 1.00 - 4.80 x10'3/uL 04/16/2021 7:10 AM [facility] ABS. MONOCYTES 0.37 0.24 - 0.86 x10'3/uL 04/16/2021 7:10 AM [facility] ABS. EOSINOPHILS 0.11 0.04 - 0.36 x10'3/uL 04/16/2021 7:10 AM STRAW HAT PRESSER [facility] ABS. BASOPHILS 0.04 0.01 - 0.08 x10'3/uL 04/16/2021 7:10 AM STRAW HAT PRESSER [facility] ABS. IMMATURE GRANULOCYTES 0.01 0.00 - 0.49 x10'3/uL 04/16/2021 7:10 AM STRAW HAT PRESSER [facility] 04/16/2021 6:44 AM STRAW HAT PRESSER Wanda Langston INTERVENTIONAL RADIOLOGY TECHNOLOGIST LABORATORY Final Resul t Performing Organization Address City/[facility]/[place] [address], * (ABNORMAL) POCT glucose (04/16/2021 6:19 AM STRAW HAT PRESSER) [facility] GLUCOSE POC 197(H) 70 - 99 mg/dL 04/16/2021 6:23 AM STRAW HAT PRESSER [facility] 04/16/2021 6:19 AM STRAW HAT PRESSER Major Edmond MD POCT ORDERABLES - YSABEL CE Final Result Performing Organization Address [facility]/[place]UST Co de Phone Number [address] [address], * ECG 12 lead (04/15/2021 10:40 PM STRAW HAT PRESSER) 04/15/2021 10:4 0 PM STRAW HAT PRESSER Narrative [facility] - 04/17/2021 4:45 PM STRAW HAT PRESSER ?[facility] ? [address], [place] ? Test Date: ?2021-04-15 Pat Name: ? LENA YOUNGBLOOD ?Department: ? Room: ? C09 Gender: ? Female ? Measurement Superintendent: ?? EV : ?1970 ? Requested By: CRYSTAL BROWN Order Number: [id number] ? Reading MD: ?? Reynaldo Scally ? Measurements Intervals ?Jasper ? Rate: ? 92 ? P: ?38 NC: ? 174 ?QRS: ?11 QRSD: ? 89 ? T: ?22 QT: ? 349 ? QTc: ?434 ? Interpretive Statements SINUS RHYTHM NONSPECIFIC T-WAVE ABNORMALITY Compared to ECG 12/13/2019 05:09:11 Sinus tachycardia no longer present T-wave abnormality still present Other ischemic changes, not STEMI Christ Coombs M.D. CRITICAL ALERT ISSUED ON 04-15-2021 23:46:05 W HAT PRESSER Procedure Note Reynaldo Leonardo MD - 04/17/[address] [facility] [address] Test Date: 2021-04-15 Pat Name: LENA YOUNGBLOOD Department: [place]: [facility] [place]: Female Measurement Superintendent: JUSTIN : 1970 Requested By: WANDA LANGSTON Order Number: [id number] Reading MD: Reynaldo Leonardo Measurements Intervals Jasper Rate: 92 P: 38 NC: 174 QRS: 11 QRSD: 89 T: 22 QT: 349 QTc: 434 Interpretive Statements SINUS RHYTHM NONSPECIFIC T-WAVE ABNORMALITY Compared to ECG 12/13/2019 05:09:11 Sinus tachycardia no longer present T-wave abnormality still present Other ischemic changes, not STEMI Christ Coombs M.D. CRITICAL ALERT ISSUED ON 04-15-2021 23:46:05 W HAT PRESSER us Wanda Langston INTERVENTIONAL RADIOLOGY TECHNOLOGIST ECG ORDERABLES Final Resul t [facility] * XR CHEST PORTABLE (04/15/2021 10:30 PM STRAW HAT PRESSER) Anatomical Region Laterality Modality Chest Radiographic Shelli ging 04/15/2021 10:3 3 PM STRAW HAT PRESSER Impressions 04/15/2021 10:33 PM STRAW HAT PRESSER IMPRESSION: No acute cardiopulmonary process. Referred By: ?? Interpreted By: Cem Caballero MD, 04/15/2021 10:33 PM Narrative 04/15/2021 10:33 PM STRAW HAT PRESSER EXAMINATION: CHEST X-RAY ONE VIEW EXAM TIME: [...] MD, 04/15/2021 10:33 PM Wanda Ronnie Brown INTERVENTIONAL RADIOLOGY TECHNOLOGIST GENERAL IMAGING Final Resul t * (ABNORMAL) BASIC METABOLIC PANEL (04/15/2021 8:30 PM STRAW HAT PRESSER) GLUCOSE 164(H) 70 - 99 MG/DL 04/15/2021 9:14 PM STRAW HAT PRESSER [facility] BUN 18 7 - 18 MG/DL 04/15/2021 9:14 PM STRAW HAT PRESSER [facility] CREATININE S/P/B 1.05(H) 0.55 - 1.02 MG/DL 04/15/2021 9:14 PM STRAW HAT PRESSER [facility] SODIUM S/P/B 135(L) 136 - 145 MMOL/L 04/15/2021 9:14 PM STRAW HAT PRESSER [facility] POTASSIUM S/P/B 4.7 3.5 - 5.1 MMOL/L 04/15/2021 9:14 PM [facility] CHLORIDE S/P/B 104 100 - 108 MMOL/L 04/15/2021 9:14 PM STRAW HAT PRESSER [facility] CO2 24.4 21 - 32 MMOL/L 04/15/2021 9:14 PM [facility] CALCIUM S/P/B 9.1 8.5 - 10.1 MG/DL 04/15/2021 9:14 PM STRAW HAT PRESSER [facility] ANION GAP 6.6 5 - 15 MMOL/L 04/15/2021 9:14 PM [facility] BUN CREATININE RATIO 17.1 6 - 26 04/15/2021 9:14 PM [facility] EGFR NON-AFR. AMER. 62(L) >90 ML/MIN/1.7 3 M2 04/15/2021 9:14 PM [facility] EGFR AFR. AMER. 72(L) >90 ML/MIN/1.7 3 M2 04/15/2021 9:14 PM [facility] Comment: NOTE: eGFR is not calculated for patients <18 years of age. This is an estimated GFR (CKD EPI) and should not be used for calculating drug doses. 04/15/2021 8:30 PM STRAW HAT PRESSER us Christ Coombs MD LABORATORY Final Result [facility] [address] [place] [address], [place] [phone] * CT ABD+PEL W IV CON ONLY (04/15/2021 6:57 PM STRAW HAT PRESSER) Anatomical Region Laterality Modality Abdomen Computed Tomogra phy 04/15/2021 7:28 PM STRAW HAT PRESSER Impressions 04/15/2021 7:36 PM STRAW HAT PRESSER IMPRESSION: ?? 1. ??No acute abnormality is seen within the abdomen or pelvis. 2. ?? 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 3. ??Bilateral obstructing renal stones measuring up to 9 mm. Ordered By: JUNE CAPUTO Interpreted By: Mercy Irving MD, 04/15/2021 7:28 PM Narrative 04/15/2021 7:36 PM STRAW HAT PRESSER PROCEDURE: ??CT ABD+PEL W CON HISTORY: ??Acute [...] MD, 04/15/2021 7:28 PM us June Caputo WATER/WASTEWATER PROJECT ENGINEER CT Final Result * (ABNORMAL) URINALYSIS (04/15/2021 5:21 PM STRAW HAT PRESSER) SPECIMEN TYPE URINE CLEAN CATCH 04/15/2021 5:22 PM STRAW HAT PRESSER [facility] COLOR (U) LIGHT YELLOW 04/15/2021 5:55 PM [facility] TRANSPARENCY CLEAR 04/15/2021 5:55 PM [facility] SPECIFIC GRAVITY (U) 1.012 1.001 - 1.030 04/15/2021 5:55 PM [facility] U PH 6.5 5.0 - 9.0 04/15/2021 5:55 PM [facility] LEUKOCYTES (U) NEGATIVE NEGATIVE 04/15/2021 5:55 PM [facility] NITRITES NEGATIVE NEGATIVE 04/15/2021 5:55 PM [facility] PROTEIN (U) 30(H) <30 MG/DL 04/15/2021 5:55 PM [facility] URINE GLUCOSE NORMAL NORMAL MG/DL 04/15/2021 5:55 PM [facility] KETONES MG/DL (U) NEGATIVE NEGATIVE MG/DL 04/15/2021 5:55 PM STRAW HAT PRESSER [facility] UROBILINOGEN NORMAL NORMAL MG/DL 04/15/2021 5:55 PM STRAW HAT PRESSER [facility] BILIRUBIN (U) NEGATIVE NEGATIVE MG/DL 04/15/2021 5:55 PM STRAW HAT PRESSER [facility] BLOOD (U) NEGATIVE NEGATIVE 04/15/2021 5:55 PM STRAW HAT PRESSER [facility] CULTURE & SENSITIVITY INDICATED? CULTURE IS NOT INDICATED 04/15/2021 5:55 PM STRAW HAT PRESSER [facility] MUCUS RARE /LPF 04/15/2021 5:55 PM STRAW HAT PRESSER [facility] WBC/HPF 1 <6 /HPF 04/15/2021 5:55 PM STRAW HAT PRESSER [facility] RBC/HPF 1 <6 /HPF 04/15/2021 5:55 PM STRAW HAT PRESSER [facility] BACTERIA (U) RARE(A) NONE /HPF 04/15/2021 5:55 PM STRAW HAT PRESSER [facility] SQUAMOUS EPITHELIALS RARE /HPF 04/15/2021 5:55 PM STRAW HAT PRESSER [facility] URINE SPECIMEN OBTAINED BY CLEAN CATCH PROCEDURE / Unknown 04/15/2021 5:21 PM STRAW HAT PRESSER us June Caputo WATER/WASTEWATER PROJECT ENGINEER URINE ORDERABLES Final Result [facility] [address] [place] [address], [place] [phone] * CULTURE URINE (04/15/2021 5:20 PM STRAW HAT PRESSER) SPEC DESCRIPTION URINE CLEAN CATCH 04/15/2021 6:09 PM STRAW HAT PRESSER [facility] SPECIAL REQUESTS NO SPECIAL REQUEST 04/15/2021 6:09 PM STRAW HAT PRESSER [facility] CULTURE RESULT NO GROWTH 2 DAYS 04/17/2021 7:59 AM STRAW HAT PRESSER [facility] URINE SPECIMEN OBTAINED BY CLEAN CATCH PROCEDURE / Unknown 04/15/2021 5:20 PM STRAW HAT PRESSER 04/15/2021 6:07 PM STRAW HAT PRESSER June Caputo WATER/WASTEWATER PROJECT ENGINEER MICROBIOLOGY - GENERAL ORDERA BLES Final Result Performing Organization Address City/[facility]/ZIP Co de Phone Number [facility] [address] [place] [address], [place] [phone] * LACTIC ACID (04/15/2021 5:20 PM STRAW HAT PRESSER) LACTIC ACID VENOUS 1.4 0.4 - 2.0 MMOL/L 04/15/2021 5:57 PM STRAW HAT PRESSER [facility] 04/15/2021 5:2 0 PM STRAW HAT PRESSER June Caputo NP LABORATORY Final Result Performing Organization Address City/[facility]/ZIP Co de Phone Number [facility] [address] [place] [phone], [place] [phone] * LIPASE (04/15/2021 5:20 PM STRAW HAT PRESSER) LIPASE 153 73 - 393 UNITS/L 04/15/2021 6:41 PM STRAW HAT PRESSER [facility] 04/15/2021 5:20 PM STRAW HAT PRESSER June Caputo NP LABORATORY Final Result Performing Organization Address City/[facility]/ZIP Co de Phone Number [facility] [address] [place] [address], [place] [phone] * (ABNORMAL) COMPREHENSIVE METABOLIC PANEL (04/15/2021 5:20 PM STRAW HAT PRESSER) GLUCOSE 203(H) 70 - 99 MG/DL 04/15/2021 6:41 PM [facility] BUN 21(H) 7 - 18 MG/DL 04/15/2021 6:41 PM [facility] CREATININE S/P/B 1.23(H) 0.55 - 1.02 MG/DL 04/15/2021 6:41 PM [facility] SODIUM S/P/B 135(L) 136 - 145 MMOL/L 04/15/2021 6:41 PM [facility] POTASSIUM S/P/B 5.2(H) 3.5 - 5.1 MMOL/L 04/15/2021 6:41 PM [facility] Comment:SLIGHT HEMOLYSIS, RE SULT MAY BE AFFECTED. CHLORIDE S/P/B 103 100 - 108 MMOL/L 04/15/2021 6:41 PM [facility] CO2 25.4 21 - 32 MMOL/L 04/15/2021 6:41 PM [facility] CALCIUM S/P/B 9.9 8.5 - 10.1 MG/DL 04/15/2021 6:41 PM [facility] BILIRUBIN TOTAL S/P/B 0.5 0.2 - 1.2 MG/DL 04/15/2021 6:41 PM [facility] Comment: THIS ASSAY IS NOT RECOMMENDED FOR PATIENTS UNDERGOING TREATMENT WITH ELTROMBOPAG DUE TO THE POTENTIAL FOR FALSELY ELEVATED RESULTS. TOTAL PROTEIN S/P/B 9.3(H) 6.4 - 8.2 G/DL 04/15/2021 6:41 PM [facility] ALBUMIN S/P/B 3.7 3.4 - 5.0 G/DL 04/15/2021 6:41 PM [facility] AST 23 15 - 37 U/L 04/15/2021 6:41 PM [facility] Comment:SLIGHT HEMOLYSIS, RE SULT MAY BE AFFECTED. ALT 28 14 - 55 U/L 04/15/2021 6:41 PM STRAW HAT PRESSER [facility] ALKALINE PHOSPHATASE S/P/B 141(H) 50 - 136 U/L 04/15/2021 6:41 PM STRAW HAT PRESSER [facility] ANION GAP 6.6 5 - 15 MMOL/L 04/15/2021 6:41 PM [facility] BUN CREATININE RATIO 17.1 6 - 26 04/15/2021 6:41 PM [facility] A/G RATIO 0.7(L) 1.0 - 2.0 RATIO 04/15/2021 6:41 PM [facility] EGFR NON-AFR. AMER. 51(L) >90 ML/MIN/1.7 3 M2 04/15/2021 6:41 PM [facility] EGFR AFR. AMER. 59(L) >90 ML/MIN/1.7 3 M2 04/15/2021 6:41 PM [facility] Comment: NOTE: eGFR is not calculated for patients <18 years of age. This is an estimated GFR (CKD EPI) and should not be used for calculating drug doses. 04/15/2021 5:20 PM STRAW HAT PRESSER us June Caputo NP LABORATORY Final Result [facility] [address] [place] [address], [place] [phone] * (ABNORMAL) CBC W/DIFF AUTOMATED (04/15/2021 5:20 PM STRAW HAT PRESSER) WBC 9.4 4.5 - 11.0 x10'3/uL 04/15/2021 5:38 PM STRAW HAT PRESSER [facility] RBC 4.05(L) 4.20 - 5.40 x10'6/uL 04/15/2021 5:38 PM [facility] HGB 12.3 12.0 - 16.0 G/DL 04/15/2021 5:38 PM [facility] HCT 37.2(L) 38.0 - 48.0 % 04/15/2021 5:38 PM [facility] MCV 91.9 81.0 - 99.0 FL 04/15/2021 5:38 PM [facility] MCH 30.4 27.0 - 31.0 PG 04/15/2021 5:38 PM [facility] MCHC 33.1 32.0 - 36.0 G/DL 04/15/2021 5:38 PM [facility] RDW 12.4 11.5 - 14.5 % 04/15/2021 5:38 PM [facility] PLT 288 130 - 400 x10'3/uL 04/15/2021 5:38 PM [facility] MPV 11.2 9.3 - 12.2 FL 04/15/2021 5:38 PM [facility] DIFFERENTIAL TYPE AUTOMATED DIFFERENTIAL 04/15/2021 5:38 PM [facility] NEUTROPHILS % 61.3 % 04/15/2021 5:38 PM [facility] LYMPHOCYTES % 31.3 % 04/15/2021 5:38 PM [facility] MONOCYTES % 5.3 % 04/15/2021 5:38 PM [facility] EOSINOPHILS 1.2 % 04/15/2021 5:38 PM [facility] BASOPHILS 0.6 % 04/15/2021 5:38 PM [facility] IMMATURE GRANS % 0.3 % 04/15/19 5:38 PM STRAW HAT PRESSER [facility] ABS. NEUTROPHILS TOTAL 5.78 1.80 - 7.70 x10'3/uL 04/15/2021 5:38 PM STRAW HAT PRESSER [facility] ABS. LYMPHOCYTES 2.95 1.00 - 4.80 x10'3/uL 04/15/2021 5:38 PM STRAW HAT PRESSER [facility] ABS. MONOCYTES 0.50 0.24 - 0.86 x10'3/uL 04/15/2021 5:38 PM STRAW HAT PRESSER [facility] ABS. EOSINOPHILS 0.11 0.04 - 0.36 x10'3/uL 04/15/2021 5:38 PM STRAW HAT PRESSER [facility] ABS. BASOPHILS 0.06 0.01 - 0.08 x10'3/uL 04/15/2021 5:38 PM STRAW HAT PRESSER [facility] ABS. IMMATURE GRANULOCYTES 0.03 0.00 - 0.49 x10'3/uL 04/15/2021 5:38 PM [facility] 04/15/2021 5:20 PM STRAW HAT PRESSER us June Caputo NP LABORATORY Final Result [facility] [address] [place] [address], documented in this encounter Visit Diagnoses Diagnosis [...] 2345, Until Discontinued Given 04/15/2021 11:36 PM STRAW HAT PRESSER 20 mg bisacodyl (DULCOLAX) suppository 10 mg [...] Sun04/15/21 at 1857 Given 04/15/2021 6:57 PM STRAW HAT PRESSER 100 mLs Right Arm ketorolac (TORADOL) injection 30 mg 30 mg, Intravenous, Once, 1 dose, On Sun04/15/21 at 2000, For IV administration, give over 15 seconds. Given 04/15/2021 8:31 PM STRAW HAT PRESSER 30 mg morphine injection 2 mg 2 mg, Intravenous, Every 3 hours PRN, Severe pain (Scale 8 - 10), Starting on Sun04/15/21 at 2224, Until 04/16/21 at 1606 Given 04/16/2021 8:36 AM STRAW HAT PRESSER 2 mg Given 04/15/2021 11:36 PM STRAW HAT PRESSER 2 mg naLOXone (NARCAN) injection 0.4 mg 0.4 mg, Intravenous, As needed, Opioid reversal, Starting on Sun04/15/21 at 2227, Until 04/16/21 at 1606 ondansetron (ZOFRAN) injection 4 mg 4 mg, Intravenous, Once, 1 dose, On Sun04/15/21 at 1700, IV push over 2-5 minutes. Given 04/15/2021 5:25 PM STRAW HAT PRESSER 4 mg ondansetron (ZOFRAN) injection 4 mg 4 mg, Intravenous, Every 8 hours PRN, Nausea, Starting on Sun04/15/21 at 2210, Until 04/16/21 at 1606, IV push over 2-5 minutes. Given 04/15/2021 11:42 PM STRAW HAT PRESSER 4 mg polyethylene glycol (GLYCOLAX) packet 1 packet 1 packet, Oral, Daily as needed, Constipation, Starting on 04/16/21 at 0802, Until 04/16/21 at 1606, Dissolve powder in 240 mL water senna-docusate (SENOKOT-S) 8.6-50 MG tablet 1 tablet 1 tablet, Oral, 2 times daily, First dose on Sun04/16/21 at 0900, Until Discontinued Given 04/16/2021 8:36 AM STRAW HAT PRESSER 1 tablet sodium chloride 0.9% bolus infusion SOLN 1,000 mL 1,000 mL, Intravenous, Administer over 15 Minutes, Once, 1 dose, On Sun04/15/21 at 1700 New Bag 04/15/2021 5:25 PM STRAW HAT PRESSER 1,000 mLs sodium chloride 0.9% infusion at 100 mL/hr, Intravenous, Continuous, Starting on Sun04/15/21 at 2330, Until 04/16/21 at 1606 New Bag 04/16/2021 8:37 AM STRAW HAT PRESSER 100 mL/hr New Bag 04/15/2021 11:14 PM STRAW HAT PRESSER 100 mL/hr tamsulosin (FLOMAX) capsule 0.4 mg 0.4 mg, Oral, Daily, First dose on Sun04/16/21 at 0900, Until Discontinued Given 04/16/2021 8:36 AM STRAW HAT PRESSER 0.4 mg documented in this encounter Active and Recently Administered Medications Times are shown in STRAW HAT PRESSER. Scheduled Medication Order 04/14/2021 04/15/2021 04/16/2021 amLODIPine [...] Total Score: 0 03/08/19 22 9:30 AM STRAW HAT PRESSER documented as of this encounter Care Teams Gang Plank Workman Relationship Specialty Start Date End Date Yasmin Segura II, MD [address] [place] [id number] PCP - General FAMILY PRACTICE 03/09/21 documented as of this encounter
--- OUTSIDE RECORDS SUMMARY | 2024-03-03 01:28 | XMS_ITS | Encounter Summary ---
Author Organization [facility] Address [address] [place] [address]. [place] [address] [place] [address] Care Team Providers Care Bridge Teacher Name Role Phone Jarred Rod MD Primary Care Provider Unav ailable Encounter Details Date Type Department Care Team (Latest Contact Info) Description 01/17/2021 11:26 AM AIR GRINDER - 01/17/2021 11:59 PM [facility] Encounter [facility] [address] [place] [address] [place] [address] [place], [place] [phone] Discharge Disposition: Home or Self Care (Routine [...] COVID-19? No / Unsure 01/17/2021 11:26 AM AIR GRINDER documented as of this encounter Functional [...] arthropathy, with long-term current use of insulin ([facility]) USE 1 SYRINGE SUBCUTANEOUSLY TWICE [...] arthropathy, with long-term current use of insulin ([facility]) INJECT 1.5 MG SUBCUTANEOUSLY ONCE EVERY 7 DAYS 4 mL 1 1 03/21/19 22 documented as of this encounter Plan of Treatment Upcoming Encounters Date Type Department Care Team (Late st Contact Info) Description 03/14/2024 11:45 AM AIR GRINDER Office Visit [facility] [phone] Marvin Mckeon MD [facility] [address] [place] [id number] 03/20/2024 11:30 AM AIR GRINDER Office Visit [facility] Family [facility] - [place] [address] [place] [phone] Abiodun Segura II, MD [address] [place] [address] documented as of this encounter Procedures Procedure Name Priority Date/Time Associated Diagnosis Comments XR FOOT RT 3V Routine 01/17/2021 11:57 AM AIR GRINDER Atherosclerosis XR FOOT LT 3V Routine 01/17/2021 11:57 AM AIR GRINDER Atherosclerosis XR ANKLE RT M3V Routine 01/17/2021 11:57 AM AIR GRINDER Atherosclerosis XR ANKLE LT M3V Routine 01/17/2021 11:57 AM AIR GRINDER Atherosclerosis documented in this encounter Results * XR ANKLE LT M3V (01/17/2021 11:57 AM AIR GRINDER) Anatomical Region Laterality Modality Ankle Radiographic Shelli ging 01/17/2021 12:3 9 PM AIR GRINDER Impressions 01/17/2021 12:42 PM AIR GRINDER IMPRESSION: 1. ?? No definite acute erosion [...] 01/17/2021 12:39 PM Narrative 01/17/2021 12:42 PM AIR GRINDER EXAMINATION: Bilateral foot and ankle [id number], [id number], [id number] EXAM DATE: 01/17/2021 11:34 AM REASON FOR [...] - 01/17/2021 EXAMINATION: Bilateral foot and ankle [id number], [id number], [id number] EXAM DATE: 01/17/2021 11:34 AM REASON FOR [...] XR ANKLE RT M3V (01/17/2021 11:57 AM AIR GRINDER) Anatomical Region Laterality Modality Ankle Radiographic Shelli ging 01/17/2021 12:3 9 PM AIR GRINDER Impressions 01/17/2021 12:42 PM AIR GRINDER IMPRESSION: 1. ?? No definite acute erosion [...] 01/17/2021 12:39 PM Narrative 01/17/2021 12:42 PM AIR GRINDER EXAMINATION: Bilateral foot and ankle [id number], [id number], [id number] EXAM DATE: 01/17/2021 11:34 AM REASON FOR [...] fasciitis. ??No evidence of fracture. Procedure Note Iasías Jones MD - 01/17/2021 EXAMINATION: Bilateral foot and ankle [id number], [id number], [id number] EXAM DATE: 01/17/2021 11:34 AM REASON FOR [...] XR FOOT LT 3V (01/17/2021 11:57 AM AIR GRINDER) Anatomical Region Laterality Modality Foot Radiographic Shelli ging 01/17/2021 12:3 9 PM AIR GRINDER Impressions 01/17/2021 12:42 PM AIR GRINDER IMPRESSION: 1. ?? No definite acute erosion [...] 01/17/2021 12:39 PM Narrative 01/17/2021 12:42 PM AIR GRINDER EXAMINATION: Bilateral foot and ankle [id number], [id number], [id number] EXAM DATE: 01/17/2021 11:34 AM REASON FOR [...] - 01/17/2021 EXAMINATION: Bilateral foot and ankle [id number], [id number], [id number] EXAM DATE: 01/17/2021 11:34 AM REASON FOR [...] XR FOOT RT 3V (01/17/2021 11:57 AM AIR GRINDER) Anatomical Region Laterality Modality Foot Radiographic Shelli ging 01/17/2021 12:3 9 PM AIR GRINDER Impressions 01/17/2021 12:42 PM AIR GRINDER IMPRESSION: 1. ?? No definite acute erosion [...] 01/17/2021 12:39 PM Narrative 01/17/2021 12:42 PM AIR GRINDER EXAMINATION: Bilateral foot and ankle [id number], [id number], [id number] EXAM DATE: 01/17/2021 11:34 AM REASON FOR [...] - 01/17/2021 EXAMINATION: Bilateral foot and ankle [id number], [id number], [id number] EXAM DATE: 01/17/2021 11:34 AM REASON FOR [...] documented as of this encounter Care Teams Bridge Teacher Relationship Specialty Start Date End Date Jarred Rod MD PCP - General FAMILY PRACTICE 01/17/21 03/08/21 documented as of this encounter
--- OUTSIDE RECORDS SUMMARY | 2024-03-03 01:28 | XMS_ITS | Encounter Summary ---
Author Organization [facility] Address [address] [place] [address]. [place] [address] [place] [address] Care Team Providers Care Upper Extremity Surgeon Name Role Phone Jarred Rod MD Primary Care Provider Unav ailable Reason for Visit * Reason Onset Date Comments Pre-visit Gap Closure 03/08/2021 Encounter Details Date Type Department Care Team (Late st Contact Info) Description 03/08/[address] [facility] Family Medicine - [place] [phone] Jarred Rod MD Pre-visit Gap [...] COVID-19? No / Unsure 03/08/2021 9:11 AM DREDGE BOAT ENGINEER documented as of this encounter Functional [...] Standard Work Program. My direct extension is [phone]. You can also reach me at: [phone] ([facility]) OR [phone] ([facility]) GE BOAT ENGINEER documented in this encounter Plan of Treatment Upcoming Encounters Date Type Department Care Team (Late st Contact Info) Description 03/14/2024 11:45 AM DREDGE BOAT ENGINEER Office Visit [facility] [phone] Marvin Mckeon MD [facility] [address] [place] [address] 03/20/2024 11:30 AM DREDGE BOAT ENGINEER Office Visit [facility] Family Medicine - [address] [place] [phone] Abiodun Segura II, MD [address] [place] [address] documented as of this encounter Visit Diagnoses Not on filedocumented in this encounter Additional Health Concerns Assessment Noted Time PHQ-9 Depression Total Score: 0 03/08/19 9:30 AM DREDGE BOAT ENGINEER documented as of this encounter Care Teams Upper Extremity Surgeon Relationship Specialty Start Date End Date Jarred Rod MD PCP - General FAMILY PRACTICE 01/17/21 03/08/21 documented as of this encounter
--- OUTSIDE RECORDS SUMMARY | 2024-03-03 01:28 | XMS_ITS | Encounter Summary ---
Author Organization [facility] Address [address] [place] [address]. [place] [address] [place] [address] [address] Team Prov[address] Care Ct Tech Name Role Phone Colton SILVEIRA MD, Abiodun Rushing Primary Care Provider Encounter Details Date Type Department Care Team (Late st Contact Info) Description 04/13/2021 9:56 AM CASTING ROOM HELPER - 04/13/2021 11:59 PM [facility] Hospital Encounter [facility] [place], [place] [phone] Abiodun Segura II, MD [address] [place] [address] Discharge Disposition: Home or Self Care [...] Coronavirus/COVID-19? No / Unsure 04/13/2021 9:54 AM CASTING ROOM HELPER documented as of this encounter Functional [...] arthropathy, with long-term current use of insulin ([facility]) Inject 3 mg into the [...] arthropathy, with long-term current use of insulin ([facility]) USE 1 SYRINGE SUBCUTANEOUSLY TWICE [...] stop hydrochlorothiazide. Follow upas scheduled next week. ING ROOM HELPER documented in this encounter Plan of Treatment Upcoming Encounters Date Type Department Care Team (Late st Contact Info) Description 03/14/2024 11:45 AM CASTING ROOM HELPER Office Visit [facility] [phone] Marvin Mckeon MD [facility] [address] [place] [phone] 03/20/2024 11:30 AM CASTING ROOM HELPER Office Visit [facility] Family Medicine - [address] [phone] Abiodun Segura II, MD [address] [place] [address] documented as of this encounter Procedures Procedure Name Priority Date/Time Associated Diagnosis Comments COMPREHENSIVE METABOLIC PANEL Routine 04/13/2021 10:23 AM CASTING ROOM HELPER Renal disorder documented in this encounter Results * (ABNORMAL) COMPREHENSIVE METABOLIC PANEL (04/13/2021 10:23 AM CASTING ROOM HELPER) GLUCOSE 157(H) 70 - 99 MG/DL 04/13/2021 11:57 AM CASTING ROOM HELPER [facility] BUN 32(H) 7 - 18 MG/DL 04/13/2021 11:57 AM CASTING ROOM HELPER [facility] CREATININE S/P/B 1.84(H) 0.55 - 1.02 MG/DL 04/13/2021 11:57 AM CASTING ROOM HELPER [facility] SODIUM S/P/B 133(L) 136 - 145 MMOL/L 04/13/2021 11:57 AM [facility] POTASSIUM S/P/B 4.5 3.5 - 5.1 MMOL/L 04/13/2021 11:57 AM [facility] CHLORIDE S/P/B 101 100 - 108 MMOL/L 04/13/2021 11:57 AM [facility] CO2 25.6 21 - 32 MMOL/L 04/13/2021 11:57 AM [facility] CALCIUM S/P/B 9.2 8.5 - 10.1 MG/DL 04/13/2021 11:57 AM [facility] BILIRUBIN TOTAL S/P/B 0.5 0.2 - 1.2 MG/DL 04/13/2021 11:57 AM [facility] Comment: THIS ASSAY IS NOT RECOMMENDED FOR PATIENTS UNDERGOING TREATMENT WITH ELTROMBOPAG DUE TO THE POTENTIAL FOR FALSELY ELEVATED RESULTS. TOTAL PROTEIN S/P/B 8.9(H) 6.4 - 8.2 G/DL 04/13/2021 11:57 AM [facility] ALBUMIN S/P/B 3.5 3.4 - 5.0 G/DL 04/13/2021 11:57 AM [facility] AST 20 15 - 37 U/L 04/13/2021 11:57 AM [facility] ALT 28 14 - 55 U/L 04/13/2021 11:57 AM [facility] ALKALINE PHOSPHATASE S/P/B 133 50 - 136 U/L 04/13/2021 11:57 AM [facility] ANION GAP 6.4 5 - 15 MMOL/L 04/13/2021 11:57 AM [facility] BUN CREATININE RATIO 17.4 6 - 26 04/13/2021 11:57 AM [facility] A/G RATIO 0.6(L) 1.0 - 2.0 RATIO 04/13/2021 11:57 AM CASTING ROOM HELPER [facility] EGFR NON-AFR. AMER. 31(L) >90 ML/MIN/1.7 3 M2 04/13/2021 11:57 AM CASTING ROOM HELPER [facility] EGFR AFR. AMER. 36(L) >90 ML/MIN/1.7 3 M2 04/13/2021 11:57 AM CASTING ROOM HELPER [facility] Comment: NOTE: eGFR is not calculated for patients <18 years of age. This is an estimated GFR (CKD EPI) and should not be used for calculating drug doses. 04/13/2021 10:2 3 AM CASTING ROOM HELPER us Abiodun Segura II, MD LABORATORY Final R esult [facility] [address] [place] [address], documented in this encounter Visit Diagnoses Diagnosis Renal disorder Unspecified disorder of kidney and ureter documented in this encounter Additional Health Concerns Assessment Noted Time PHQ-9 Depression Total Score: 0 03/08/19 22 9:30 AM CASTING ROOM HELPER documented as of this encounter Care Teams Ct Tech Relationship Specialty Start Date End Date Abiodun Segura II, MD [address] [place] [address] PCP - General FAMILY PRACTICE 03/09/21 documented as of this encounter
--- OUTSIDE RECORDS SUMMARY | 2024-03-03 01:28 | XMS_ITS | Encounter Summary ---
Author Organization [facility] Address [address] [place] [address]. [place] [address] [place] [address] Care Team Providers Care Customer Success Intern Name Role Phone Colton SILVEIRA MD, Yasmin Rushing Primary Care Provider Reason for Visit * Reason Comments Follow Up - Diabetes with labs Encounter Details Date Type Department Care Team (Late st Contact Info) Description 03/21/2021 9:40 AM ORAL AND MAXILLOFACIAL SURGERY Office Visit [facility] Family Medicine [facility] [address] [place] [address] Yasmin Valenzuela II, MD [address] [place] [address] Follow Up - Diabetes (with [...] COVID-19? No / Unsure 03/21/2021 9:39 AM ORAL AND MAXILLOFACIAL SURGERY documented as of this encounter Last Filed Vital Signs Vital Sign Reading Time Taken Comments Blood Pressure 134/84 03/21/2021 9:57 AM ORAL AND MAXILLOFACIAL SURGERY Pulse 84 03/21/2021 9:57 AM ORAL AND MAXILLOFACIAL SURGERY Temperature 36.5 ??C (97.7 ??F) 03/21/2021 9:57 AM CS T Respiratory Rate 15 03/21/2021 9:57 AM ORAL AND MAXILLOFACIAL SURGERY Oxygen Saturation 98% 03/21/2021 9:57 AM ORAL AND MAXILLOFACIAL SURGERY Inhaled Oxygen Concentration - - Weight 90 kg (198 lb 6.4 oz) 03/21/2021 9:57 AM ORAL AND MAXILLOFACIAL SURGERY Height - - Body Mass Index 32.02 03/08/2021 9:30 AM ORAL AND MAXILLOFACIAL SURGERY documented in this encounter Functional Status * [...] not included. [facility] FAMILY MEDICINE [address] [address] OFFICE FOLLOW UP NOTE Encounter Date: 03/21/2021 [...] with long- term current use of insulin ([facility]) Dulaglutide (TRULICITY) 3 MG/0.5ML Solution Pen-injector 2. [...] with long- term current use of insulin ([facility]) Patient's hemoglobin A1C is above our goal. [...] Portions of this note were dictated using [employer] speech recognition software. Occasional wrong wordor sound-alike substitutions may have occurred due to the inherent limitations of voice recognition software. Please read the chart carefully and recognize, using context, where the substitutions may have occurred. AND MAXILLOFACIAL SURGERY documented in this encounter Plan of Treatment Upcoming Encounters Date Type Department Care Team (Late st Contact Info) Description 03/14/2024 11:45 AM ORAL AND MAXILLOFACIAL SURGERY Office Visit [facility] [address] Marvin Mckeon MD Three [facility] [address] [place], [place] [phone] 03/20/2024 11:30 AM ORAL AND MAXILLOFACIAL SURGERY Office Visit [facility] Medical Group Family Medicine - [place] [address] [place] [address] Yasmin Valenzuela II, MD [address] [place], [place] [phone] documented as of this encounter Results * (ABNORMAL) COMPREHENSIVE METABOLIC PANEL (04/13/2021 10:23 AM ORAL AND MAXILLOFACIAL SURGERY) [facility] GLUCOSE 157(H) 70 - 99 MG/DL 04/13/2021 11:57 AM [facility] BUN 32(H) 7 - 18 MG/DL 04/13/2021 11:57 AM [facility] CREATININE S/P/B 1.84(H) 0.55 - 1.02 MG/DL 04/13/2021 11:57 AM ORAL AND MAXILLOFACIAL SURGERY [facility] SODIUM S/P/B 133(L) 136 - 145 MMOL/L 04/13/2021 11:57 AM [facility] POTASSIUM S/P/B 4.5 3.5 - 5.1 MMOL/L 04/13/2021 11:57 AM [facility] CHLORIDE S/P/B 101 100 - 108 MMOL/L 04/13/2021 11:57 AM ORAL AND MAXILLOFACIAL SURGERY [facility] CO2 25.6 21 - 32 MMOL/L 04/13/2021 11:57 AM [facility] CALCIUM S/P/B 9.2 8.5 - 10.1 MG/DL 04/13/2021 11:57 AM [facility] BILIRUBIN TOTAL S/P/B 0.5 0.2 - 1.2 MG/DL 04/13/2021 11:57 AM [facility] Comment: THIS ASSAY IS NOT RECOMMENDED FOR PATIENTS UNDERGOING TREATMENT WITH ELTROMBOPAG DUE TO THE POTENTIAL FOR FALSELY ELEVATED RESULTS. TOTAL PROTEIN S/P/B 8.9(H) 6.4 - 8.2 G/DL 04/13/2021 11:57 AM [facility] ALBUMIN S/P/B 3.5 3.4 - 5.0 G/DL 04/13/2021 11:57 AM [facility] AST 20 15 - 37 U/L 04/13/2021 11:57 AM [facility] ALT 28 14 - 55 U/L 04/13/2021 11:57 AM [facility] ALKALINE PHOSPHATASE S/P/B 133 50 - 136 U/L 04/13/2021 11:57 AM [facility] ANION GAP 6.4 5 - 15 MMOL/L 04/13/2021 11:57 AM [facility] BUN CREATININE RATIO 17.4 6 - 26 04/13/2021 11:57 AM [facility] A/G RATIO 0.6(L) 1.0 - 2.0 RATIO 04/13/2021 11:57 AM [facility] EGFR NON-AFR. AMER. 31(L) >90 ML/MIN/1.7 3 M2 04/13/2021 11:57 AM [facility] EGFR AFR. AMER. 36(L) >90 ML/MIN/1.7 3 M2 04/13/2021 11:57 AM [facility] Comment: NOTE: eGFR is not calculated for patients <18 years of age. This is an estimated GFR (CKD EPI) and should not be used for calculating drug doses. 04/13/2021 10:2 3 AM ORAL AND MAXILLOFACIAL SURGERY us Yasmin Valenzuela II, MD LABORATORY Final R esult [facility] [address] [place] [address], [place] [phone] documented in this encounter Visit Diagnoses Diagnosis Type 2 diabetes mellitus with diabetic neuropathic arthropathy, with long-term current use of insulin ([facility])- Primary Renal disorder Unspecified disorder of kidney and ureter Primary hypertension Unspecified essential hypertension Chronic bilateral low back pain without sciatica Vision decreased Unspecified visual loss documented in this encounter Additional Health Concerns Assessment Noted Time PHQ-9 Depression Total Score: 0 03/08/19 9:30 AM ORAL AND MAXILLOFACIAL SURGERY documented as of this encounter Care Teams Customer Success Intern Relationship Specialty Start Date End Date Yasmin Valenzuela II, MD [address] [place] [address] PCP - General FAMILY PRACTICE 03/09/21 documented as of this encounter
--- OUTSIDE RECORDS SUMMARY | 2024-03-03 01:28 | XMS_ITS | Encounter Summary ---
Author Organization [facility] Address [address] [place] [address]. [place] [address] [place] [address] Care Team Providers Care Commodity Supervisor Name Role Phone Colton SILVEIRA MD, Abiodun Rushing Primary Care Provider Reason for Visit * Reason Onset Date Comments Pre-visit Gap Closure 04/13/2021 Encounter Details Date Type Department Care Team (Late st Contact Info) Description 04/13/2021 Telephone [facility] Family Medicine - [place] [address] [place] [address] Abiodun Segura II, MD [address] [place] [address] Pre-visit Gap Closure Social History [...] Coronavirus/COVID-19? No / Unsure 04/13/2021 9:54 AM FUR TRAPPER documented as of this encounter Functional Status [...] Standard Work Program. My direct extension is [phone]. You can also reach me at: [phone] ([facility]) OR [phone] ([facility]) TRAPPER documented in this encounter Plan of Treatment Upcoming Encounters Date Type Department Care Team (Late st Contact Info) Description 03/14/2024 11:45 AM FUR TRAPPER Office Visit [facility] [phone] Marvin Mckeon MD Three [facility] [address] [place] [address] 03/20/2024 11:30 AM FUR TRAPPER Office Visit [facility] Family Medicine - [place] [address] [place] [phone] Abiodun Segura II, MD [address] [place] [address] documented as of this encounter Visit Diagnoses Not on filedocumented in this encounter Additional Health Concerns Assessment Noted Time PHQ-9 Depression Total Score: 0 03/08/19 9:30 AM FUR TRAPPER documented as of this encounter Care Teams Commodity Supervisor Relationship Specialty Start Date End Date Abiodun Segura II, MD [address] [place] [address] PCP - General FAMILY PRACTICE 03/09/21 documented as of this encounter
--- OUTSIDE RECORDS SUMMARY | 2024-03-03 01:28 | XMS_ITS | Encounter Summary ---
Author Organization [facility] Address [address] [place] [address]. [place], [place] [id number] [place] [address] Care Team Providers Care Fisher Purse Seine Name Role Phone Jarred Rod MD Primary [...] COVID-19? No / Unsure 02/23/2021 9:53 AM MAINTENANCE SERVICE SUPERVISOR documented as of this encounter Functional [...] st Contact Info) Description 03/14/2024 11:45 AM MAINTENANCE SERVICE SUPERVISOR Office Visit [facility] [address] Marvin Mckeon MD [facility] [address] [place], [place] [phone] 03/20/2024 11:30 AM MAINTENANCE SERVICE SUPERVISOR Office Visit [facility] Family Medicine - [place] [address] [place] [phone] Abiodun Segura II, MD [address] [place] [phone] documented as of this encounter Visit Diagnoses Not on filedocumented in this encounter Additional Health Concerns Assessment Noted Time PHQ-9 Depression Total Score: 0 10/09/19 21 10:02 AM CDT documented as of this encounter Care Teams Fisher Purse Seine Relationship Specialty Start Date End Date Jarred Rod MD PCP - General FAMILY PRACTICE 01/17/21 03/08/21 documented as of this encounter
--- OUTSIDE RECORDS SUMMARY | 2024-03-03 01:28 | XMS_ITS | Encounter Summary ---
Author Organization [facility] Address [address] [place] [address]. [place] [address] [place] [address] Care Team Providers Care General Internist Name Role Phone Jarred Rod MD Primary Care Provider Unav ailable Reason for Visit * Reason Comments Kidney Problem rt side....new pt * Consultation (Urgent) - Closed Specialty Diagnoses / Procedures Referred By Contac t Referred To Contact UROLOGY Diagnoses Renal calcinosis Hydronephrosis with ureteral stricture, not elsewhere classified Yasmin Valenzuela II, MD [address] [place] [address] Phone: tel: fax: Thanh Veloz MD Referral ID Status Reason Start Date Expiration Date V isits Requested Visits Authorized [id number] Closed Specialty Services 02/23/2021 08/22/2021 6 6 Encounter Details Date Type Department Care Team (Latest Contact Info) Description 03/08/2021 10:40 AM FLOWER MACHINE OPERATOR Office Visit [facility] Multispecialty Care - [facility] [address] [facility], [address] [place] [address] Thanh Veloz MD Kidney Problem [...] COVID-19? No / Unsure 03/21/2021 9:39 AM FLOWER MACHINE OPERATOR documented as of this encounter Last Filed Vital Signs Vital Sign Reading Time Taken Comments Blood Pressure 120/70 03/08/2021 9:30 AM FLOWER MACHINE OPERATOR Pulse 88 03/08/2021 9:30 AM FLOWER MACHINE OPERATOR Temperature 36.6 ??C (97.9 ??F) 03/08/2021 9:30 AM CS T Respiratory Rate 18 03/08/2021 9:30 AM FLOWER MACHINE OPERATOR Oxygen Saturation 96% 03/08/2021 9:30 AM FLOWER MACHINE OPERATOR Inhaled Oxygen Concentration - - Weight 88 kg (194 lb) 03/08/2021 9:30 AM FLOWER MACHINE OPERATOR Height 167.6 cm (5' 6 ) 03/08/2021 9:30 AM FLOWER MACHINE OPERATOR Body Mass Index 31.31 03/08/2021 9:30 AM FLOWER MACHINE OPERATOR documented in this encounter Functional Status [...] of 10 minutes - She then saw [facility] in 2017 with repeat lasix renal [...] for further opinions including ureterolysis vs nephrectomy Yasmin Veloz MD (THANH VELOZ MD) ER MACHINE OPERATOR documented in this encounter Plan of Treatment Upcoming Encounters Date Type Department Care Team (Late st Contact Info) Description 03/14/2024 11:45 AM FLOWER MACHINE OPERATOR Office Visit [facility] [phone] Marvin Mckeon MD Three [facility] [address] [place] [address] 03/20/2024 11:30 AM FLOWER MACHINE OPERATOR Office Visit [facility] Family Medicine - [place] [address] [place] [address] Yasmin Valenzuela II, MD [address] [place], [place] [phone] documented as of this encounter Visit Diagnoses Diagnosis Right flank pain- Primary Abdominal pain, unspecified site documented in this encounter Additional Health Concerns Assessment Noted Time PHQ-9 Depression Total Score: 0 03/08/19 9:30 AM FLOWER MACHINE OPERATOR documented as of this encounter Care Teams General Internist Relationship Specialty Start Date End Date Jarred Rod MD PCP - General FAMILY PRACTICE 01/17/21 03/08/21 documented as of this encounter
--- OUTSIDE RECORDS SUMMARY | 2024-03-03 01:28 | XMS_ITS | Encounter Summary ---
Author Organization [facility] Address [address] [place] [address]. [place] [address] [place] [address] Care Team Providers Care Drying Unit Felting Machine Operator Name Role Phone Jarred Rod MD Primary Care Provider Unav ailable Encounter Details Date Type Department Care Team (Late st Contact Info) Description 02/23/2021 11:10 AM MATE FISHING VESSEL - 02/23/2021 11:59 PM [facility] Hospital Encounter [facility] [place], [place] [phone] Abiodun Segura II, MD [address] [place], [place] [phone] Discharge Disposition: Home or Self Care (Routine [...] COVID-19? No / Unsure 02/23/2021 9:53 AM MATE FISHING VESSEL documented as of this encounter Functional Status [...] with long-term current use of insulin ([facility] [...] with long-term current use of insulin ([facility]) INJECT 1.5 MG SUBCUTANEOUSLY ONCE EVERY 7 DAYS 4 mL 1 1 03/21/19 22 documented as of this encounter Progress Notes * Abiodun Segura II, MD - 02/23/2021 11:10 AM CST Lab results reviewed. Minor abnormalities noted. Will review with patient at upcoming appointment and make adjustments if needed. FISHING VESSEL documented in this encounter Plan of Treatment Upcoming Encounters Date Type Department Care Team (Late st Contact Info) Description 03/14/2024 11:45 AM MATE FISHING VESSEL Office Visit [facility] [address] Marvin Mkceon MD [address] [facility] [address] [place] [address] 03/20/2024 11:30 AM MATE FISHING VESSEL Office Visit [facility] Family Medicine - [address] [phone] Abiodun Segura II, MD [address] [place] [address] documented as of this encounter Procedures Procedure Name Priority Date/Time Associated Diagnosis Comments HEMOGLOBIN, GLYCOSYLATED Routine 02/23/2021 11:27 AM MATE FISHING VESSEL Type 2 diabetes mellitus with diabetic neuropathic arthropathy, with long-term current use of insulin ([facility]) COMPREHENSIVE METABOLIC PANEL Routine 02/23/2021 11:27 AM MATE FISHING VESSEL Primary hypertension LIPID PANEL Routine 02/23/2021 11:27 AM MATE FISHING VESSEL Hypercholesteremia CBC W/DIFF AUTOMATED Routine 02/23/2021 11:27 AM MATE FISHING VESSEL Primary hypertension documented in this encounter Results * (ABNORMAL) LIPID PANEL (02/23/2021 11:27 AM MATE FISHING VESSEL) CHOLESTEROL 174 <200 MG/DL 02/23/2021 12:52 PM MATE FISHING VESSEL [facility] TRIGLYCERIDES 269(H) <150 MG/DL 02/23/2021 12:52 PM MATE FISHING VESSEL [facility] HDL 41 >40.0 MG/DL 02/23/2021 12:52 PM [facility] LDL (CALCULATED) 79 <100 MG/DL 02/23/2021 12:52 PM [facility] NON HDL CHOLESTEROL 133(H) <130 MG/DL 02/23/2021 12:52 PM [facility] CHOL/HDL RATIO 4.2 0.0 - 4.5 02/23/2021 12:52 PM [facility] VLDL CALCULATION 54 5 - 55 MG/DL 02/23/2021 12:52 PM [facility] LIPID INTERPRETATION 02/23/2021 12:52 PM [facility] Comment: [facility] CON[facility]ENS[facility] REPORT RECOMMENDATIONS: ?ADULT [...] ? >=160 ?>=130 02/23/2021 11:2 7 AM MATE FISHING VESSEL us Abiodun Segura II, MD LABORATORY Final R esult [facility] [address] [place] [address], * (ABNORMAL) COMPREHENSIVE METABOLIC PANEL (02/23/2021 11:27 AM MATE FISHING VESSEL) GLUCOSE 186(H) 70 - 99 MG/DL 02/23/2021 12:52 PM [facility] BUN 27(H) 7 - 18 MG/DL 02/23/2021 12:52 PM [facility] CREATININE S/P/B 1.38(H) 0.55 - 1.02 MG/DL 02/23/2021 12:52 PM [facility] SODIUM S/P/B 136 136 - 145 MMOL/L 02/23/2021 12:52 PM [facility] POTASSIUM S/P/B 4.5 3.5 - 5.1 MMOL/L 02/23/2021 12:52 PM [facility] CHLORIDE S/P/B 104 100 - 108 MMOL/L 02/23/2021 12:52 PM [facility] CO2 25.1 21 - 32 MMOL/L 02/23/2021 12:52 PM [facility] CALCIUM S/P/B 9.4 8.5 - 10.1 MG/DL 02/23/2021 12:52 PM [facility] BILIRUBIN TOTAL S/P/B 0.3 0.2 - 1.2 MG/DL 02/23/2021 12:52 PM [facility] Comment: THIS ASSAY IS NOT RECOMMENDED FOR PATIENTS UNDERGOING TREATMENT WITH ELTROMBOPAG DUE TO THE POTENTIAL FOR FALSELY ELEVATED RESULTS. TOTAL PROTEIN S/P/B 9.1(H) 6.4 - 8.2 G/DL 02/23/2021 12:52 PM [facility] ALBUMIN S/P/B 3.6 3.4 - 5.0 G/DL 02/23/2021 12:52 PM [facility] AST 21 15 - 37 U/L 02/23/2021 12:52 PM [facility] ALT 27 14 - 55 U/L 02/23/2021 12:52 PM [facility] ALKALINE PHOSPHATASE S/P/B 145(H) 50 - 136 U/L 02/23/2021 12:52 PM [facility] ANION GAP 6.9 5 - 15 MMOL/L 02/23/2021 12:52 PM [facility] BUN CREATININE RATIO 19.6 6 - 26 02/23/2021 12:52 PM [facility] A/G RATIO 0.7(L) 1.0 - 2.0 RATIO 02/23/2021 12:52 PM [facility] EGFR NON-AFR. AMER. 45(L) >90 ML/MIN/1.7 3 M2 02/23/2021 12:52 PM [facility] EGFR AFR. AMER. 52(L) >90 ML/MIN/1.7 3 M2 02/23/2021 12:52 PM [facility] Comment: NOTE: eGFR is not calculated for patients <18 years of age. This is an estimated GFR (CKD EPI) and should not be used for calculating drug doses. 02/23/2021 11:2 7 AM MATE FISHING VESSEL Abiodun Segura II, MD LABORATORY Final R esult [facility] [address] [place] [address], [place] [phone] * CBC W/DIFF AUTOMATED (02/23/2021 11:27 AM MATE FISHING VESSEL) WBC 9.7 4.5 - 11.0 x10'3/uL 02/23/2021 12:06 PM [facility] RBC 4.21 4.20 - 5.40 x10'6/uL 02/23/2021 12:06 PM [facility] HGB 12.8 12.0 - 16.0 G/DL 02/23/2021 12:06 PM [facility] HCT 39.7 38.0 - 48.0 % 02/23/2021 12:06 PM [facility] MCV 94.3 81.0 - 99.0 FL 02/23/2021 12:06 PM [facility] MCH 30.4 27.0 - 31.0 PG 02/23/2021 12:06 PM [facility] MCHC 32.2 32.0 - 36.0 G/DL 02/23/2021 12:06 PM [facility] RDW 13.0 11.5 - 14.5 % 02/23/2021 12:06 PM [facility] PLT 270 130 - 400 x10'3/uL 02/23/2021 12:06 PM [facility] MPV 11.1 9.3 - 12.2 FL 02/23/2021 12:06 PM [facility] DIFFERENTIAL TYPE AUTOMATED DIFFERENTIAL 02/23/2021 12:06 PM [facility] NEUTROPHILS % 59.8 % 02/23/2021 12:06 PM [facility] LYMPHOCYTES % 34.2 % 02/23/2021 12:06 PM [facility] MONOCYTES % 4.3 % 02/23/2021 12:06 PM [facility] EOSINOPHILS 0.8 % 02/23/2021 12:06 PM [facility] BASOPHILS 0.6 % 02/23/2021 12:06 PM [facility] IMMATURE GRANS % 0.3 % 02/23/19 12:06 PM [facility] ABS. NEUTROPHILS TOTAL 5.77 1.80 - 7.70 x10'3/uL 02/23/2021 12:06 PM [facility] ABS. LYMPHOCYTES 3.30 1.00 - 4.80 x10'3/uL 02/23/2021 12:06 PM [facility] ABS. MONOCYTES 0.42 0.24 - 0.86 x10'3/uL 02/23/2021 12:06 PM [facility] ABS. EOSINOPHILS 0.08 0.04 - 0.36 x10'3/uL 02/23/2021 12:06 PM [facility] ABS. BASOPHILS 0.06 0.01 - 0.08 x10'3/uL 02/23/2021 12:06 PM [facility] ABS. IMMATURE GRANULOCYTES 0.03 0.00 - 0.49 x10'3/uL 02/23/2021 12:06 PM MATE FISHING VESSEL [facility] 02/23/2021 11:2 7 AM MATE FISHING VESSEL Abiodun Segura II, MD LABORATORY Final R esult Performing Organization Address City/[facility] Co de Phone Number [facility] [address] [place] [address], * (ABNORMAL) HEMOGLOBIN, GLYCOSYLATED (02/23/2021 11:27 AM MATE FISHING VESSEL) HGB A1C 8.9(H) <5.7 % 02/23/2021 1:15 PM MATE FISHING VESSEL [facility] Comment: ADA GUIDELINES 2009 5.7 TO 6.4% INCREASED RISK OF DIABETES > OR = 6.5% CONSISTENT WITH DIABETES ESTIMATED AVG GLUCOSE 209 mg/dL 02/23/2021 1:15 PM MATE FISHING VESSEL [facility] 02/23/2021 11:2 7 AM MATE FISHING VESSEL Abiodun Segura II, MD LABORATORY Final R esult Performing Organization Address City/[facility] Co de Phone Number [facility] [address] [place] [address], [place] [phone] documented in this encounter Visit Diagnoses Diagnosis Type 2 diabetes mellitus with diabetic neuropathic arthropathy, with long-term current use of insulin ([facility]) Primary hypertension Unspecified essential hypertension Hypercholesteremia Pure hypercholesterolemia documented in this encounter Additional Health Concerns Assessment Noted Time PHQ-9 Depression Total Score: 0 10/09/19 21 10:02 AM CDT documented as of this encounter Care Teams Drying Unit Felting Machine Operator Relationship Specialty Start Date End Date Jarred Rod MD PCP - General FAMILY PRACTICE 01/17/21 03/08/21 documented as of this encounter
--- OUTSIDE RECORDS SUMMARY | 2024-03-03 01:28 | XMS_ITS | Encounter Summary ---
Author Organization [facility] Address [address] [place] [address]. [place] [address] [place] [address] Care Team Providers Care Kapok Machine Operator Name Role Phone Jarred Rod MD Primary Care Provider Unav ailable Reason for Referral * Consultation (Urgent) - Closed Specialty Diagnoses / Procedures Referred By Lyla chaney Referred To Contact UROLOGY Diagnoses Renal calcinosis Hydronephrosis with ureteral stricture, not elsewhere classified Yasmin Valenzuela II, MD [address] [place] [address] Phone: tel: fax: Pilo Salmon MD Referral ID Status Reason Start Date Expiration Date V isits Requested Visits Authorized [id number] Closed Specialty Services 02/23/2021 08/22/2021 6 6 Scheduling Instructions 50yo female with right sided hydronephrosis which appears to be worsening causing renal cortex thinning and now with pain likely from a stricture at the UPJ per previous studies. Please evaluate and treat. She is also developing bladder symptoms which clinically sound like interstitial cystitis. Thanks. LER OPERATOR * Imaging (Routine) - Closed Specialty Diagnoses / Procedures Referred By Lyla chaney Referred To Contact RADIOLOGY Diagnoses Hydronephrosis with ureteral stricture, not elsewhere classified Procedures US RETROPERITONEAL COMP Yasmin Valenzuela II, MD [address] [place] [address] Phone: tel: fax: Referral ID Status Reason Start Date Expiration Date Visits Re quested Visits Authorized [id number] Closed 02/23/2021 03/26/2022 1 1 LER OPERATOR Reason for Visit * Reason Comments Follow Up Back pain and c/o ur ianry pressure Encounter Details Date Type Department Care Team (Late st Contact Info) Description 02/23/2021 10:00 AM RIDDLER OPERATOR Office Visit [facility] Family Medicine [address] [phone] Yasmin Valenzuela II, MD [address] [place] [address] Follow Up (Back pain and c/o urianry [...] COVID-19? No / Unsure 02/23/2021 9:53 AM RIDDLER OPERATOR documented as of this encounter Last Filed Vital Signs Vital Sign Reading Time Taken Comments Blood Pressure 128/75 02/23/2021 10:09 AM RIDDLER OPERATOR Pulse 87 02/23/2021 10:09 AM RIDDLER OPERATOR Temperature 36.5 ??C (97.7 ??F) 02/23/2021 10:[address] Respiratory Rate - - Oxygen Saturation - - Inhaled Oxygen Concentration - - Weight 89.6 kg (197 lb 9.6 oz) 02/23/2021 10:09 AM RIDDLER OPERATOR Height - - Body Mass Index 31.89 [...] from the original note were not included. [facility] FAMILY MEDICINE [address] [address] OFFICE FOLLOW UP NOTE Encounter [...] [facility] Pat.Name: LENA YOUNGBLOOD Jemima.ID: [id number] .Date: 01/24/2021 Exam Time: 12:36:00 PM Study [...] with long- term current use of insulin (CMS/[facility]) HEMOGLOBIN, GLYCOSYLATED 2. Chronic bilateral low back pain without sciatica 3. Hydronephrosis with ureteral stricture, not elsewhere classified URINALYSIS US RETROPERITONEAL COMP Ambulatory referral to Urology ([facility]) 4. Renal calcinosis URINALYSIS Ambulatory referral to Urology ([facility]) 5. Hypercholesteremia LIPID PANEL 6. Primary hypertension [...] Future - Ambulatory referral to Urology ( [place]) 4. Renal calcinosis We will check urinalysis for sediment or blood. - URINALYSIS; Future - Ambulatory referral to Urology ( [place]) 5. Hypercholesteremia We will check lipids to ensure that LDL is below treatment goal. - LIPID PANEL; Future 6. Primary hypertension Patient's blood pressure is at goal today. We will check blood count and metabolic panel to rule out worsening kidney function. - CBC W/DIFF AUTOMATED; Future - COMPREHENSIVE METABOLIC PANEL; Future There are no discontinued medications. YASMIN VALENZUELA MD 02/23/2021 LER OPERATOR documented in this encounter Plan of Treatment Upcoming Encounters Date Type Department Care Team (Late st Contact Info) Description 03/14/2024 11:45 AM RIDDLER OPERATOR Office Visit [facility] [phone] Marvin Mckeon MD Three [facility] [address] [place] [address] 03/20/2024 11:30 AM RIDDLER OPERATOR Office Visit [facility] Family [facility] - [place] [address] [place] [phone] Yasmin Valenzuela II, MD [address] [place], [place] [phone] Scheduled Referrals Name Type Priority Associated Diagnoses Orde r Schedule Ambulatory referral to Urology ( [place]) Referral Routine Renal calcinosis Hydronephrosis with ureteral stricture, not elsewhere classified Ordered: 02/23/2021 documented as of this encounter Results * (ABNORMAL) URINALYSIS (05/10/2021 12:03 PM CDT) SPECIMEN TYPE URINE CLEAN CATCH 05/10/2021 11:57 AM CDT [facility] COLOR (U) LIGHT YELLOW 05/10/2021 1:13 PM CDT [facility] TRANSPARENCY CLEAR 05/10/2021 1:13 PM CDT [facility] SPECIFIC GRAVITY (U) 1.012 1.001 - 1.030 05/10/2021 1:13 PM CDT [facility] U PH 5.5 5.0 - 9.0 05/10/2021 1:13 PM CDT [facility] LEUKOCYTES (U) NEGATIVE NEGATIVE 05/10/2021 1:13 PM CDT [facility] NITRITES NEGATIVE NEGATIVE 05/10/2021 1:13 PM CDT [facility] PROTEIN (U) 30(H) <30 MG/DL 05/10/2021 1:13 PM CDT [facility] URINE GLUCOSE NORMAL NORMAL MG/DL 05/10/2021 1:13 PM CDT [facility] KETONES MG/DL (U) NEGATIVE NEGATIVE MG/DL 05/10/2021 1:13 PM CDT [facility] UROBILINOGEN NORMAL NORMAL MG/DL 05/10/2021 1:13 PM CDT [facility] BILIRUBIN (U) NEGATIVE NEGATIVE MG/DL 05/10/2021 1:13 PM CDT [facility] BLOOD (U) NEGATIVE NEGATIVE 05/10/2021 1:13 PM CDT [facility] MUCUS RARE /LPF 05/10/2021 1:13 PM CDT [facility] HYALINE CASTS RARE /LPF 05/10/2021 1:13 PM CDT [facility] WBC/HPF 1 <6 /HPF 05/10/2021 1:13 PM CDT [facility] RBC/HPF <1 <6 /HPF 05/10/2021 1:13 PM CDT [facility] SQUAMOUS EPITHELIALS RARE /HPF 05/10/2021 1:13 PM CDT [facility] URINE SPECIMEN OBTAINED BY CLEAN CATCH PROCEDURE / Unknown 05/10/2021 12:03 PM CDT us Yasmin Valenzuela II, MD URINE ORDERABLES Final Result [facility] [address] [place] [address], [place] [phone] * US RETROPERITONEAL COMP (03/04/2021 11:08 AM RIDDLER OPERATOR) Anatomical Region Laterality Modality Abdomen Ultrasound 03/04/2021 12:1 3 PM RIDDLER OPERATOR Impressions 03/04/2021 3:19 PM RIDDLER OPERATOR IMPRESSION: 1. Chronic dilation of the right [...] 03/04/2021 12:13 PM Narrative 03/04/2021 3:19 PM RIDDLER OPERATOR IMAGING STUDIES: ??US RETROPERITONEAL COMP ?DATE: ??03/04/2021 [...] thinning andhydronephrosis. Please evaluate for worsening. Thanks. [id number] with right hydronephrosis and renal cortical thinning. [...] * (ABNORMAL) LIPID PANEL (02/23/2021 11:27 AM RIDDLER OPERATOR) CHOLESTEROL 174 <200 MG/DL 02/23/2021 12:52 PM RIDDLER OPERATOR [facility] TRIGLYCERIDES 269(H) <150 MG/DL 02/23/2021 12:52 PM [facility] HDL 41 >40.0 MG/DL 02/23/2021 12:52 PM [facility] LDL (CALCULATED) 79 <100 MG/DL 02/23/2021 12:52 PM [facility] NON HDL CHOLESTEROL 133(H) <130 MG/DL 02/23/2021 12:52 PM [facility] CHOL/HDL RATIO 4.2 0.0 - 4.5 02/23/2021 12:52 PM [facility] VLDL CALCULATION 54 5 - 55 MG/DL 02/23/2021 12:52 PM [facility] LIPID INTERPRETATION 02/23/2021 12:52 PM [facility] Comment: NIH CONCENSUS REPORT RECOMMENDATIONS: [...] ? >=160 ?>=130 02/23/2021 11:2 7 AM RIDDLER OPERATOR Yasmin Valenzuela II, MD LABORATORY Final R charley [facility] [address] [place] [address], * (ABNORMAL) COMPREHENSIVE METABOLIC PANEL (02/23/2021 11:27 AM RIDDLER OPERATOR) GLUCOSE 186(H) 70 - 99 MG/DL 02/23/2021 12:52 PM RIDDLER OPERATOR [facility] BUN 27(H) 7 - 18 MG/DL 02/23/2021 12:52 PM RIDDLER OPERATOR [facility] CREATININE S/P/B 1.38(H) 0.55 - 1.02 MG/DL 02/23/2021 12:52 PM RIDDLER OPERATOR [facility] SODIUM S/P/B 136 136 - 145 MMOL/L 02/23/2021 12:52 PM RIDDLER OPERATOR [facility] POTASSIUM S/P/B 4.5 3.5 - 5.1 MMOL/L 02/23/2021 12:52 PM RIDDLER OPERATOR [facility] CHLORIDE S/P/B 104 100 - 108 MMOL/L 02/23/2021 12:52 PM RIDDLER OPERATOR [facility] CO2 25.1 21 - 32 MMOL/L 02/23/2021 12:52 PM RIDDLER OPERATOR [facility] CALCIUM S/P/B 9.4 8.5 - 10.1 MG/DL 02/23/2021 12:52 PM RIDDLER OPERATOR [facility] BILIRUBIN TOTAL S/P/B 0.3 0.2 - 1.2 MG/DL 02/23/2021 12:52 PM RIDDLER OPERATOR [facility] Comment: THIS ASSAY IS NOT RECOMMENDED FOR PATIENTS UNDERGOING TREATMENT WITH ELTROMBOPAG DUE TO THE POTENTIAL FOR FALSELY ELEVATED RESULTS. TOTAL PROTEIN S/P/B 9.1(H) 6.4 - 8.2 G/DL 02/23/2021 12:52 PM [facility] ALBUMIN S/P/B 3.6 3.4 - 5.0 G/DL 02/23/2021 12:52 PM [facility] AST 21 15 - 37 U/L 02/23/2021 12:52 PM [facility] ALT 27 14 - 55 U/L 02/23/2021 12:52 PM [facility] ALKALINE PHOSPHATASE S/P/B 145(H) 50 - 136 U/L 02/23/2021 12:52 PM [facility] ANION GAP 6.9 5 - 15 MMOL/L 02/23/2021 12:52 PM [facility] BUN CREATININE RATIO 19.6 6 - 26 02/23/2021 12:52 PM [facility] A/G RATIO 0.7(L) 1.0 - 2.0 RATIO 02/23/2021 12:52 PM [facility] EGFR NON-AFR. AMER. 45(L) >90 ML/MIN/1.7 3 M2 02/23/2021 12:52 PM [facility] EGFR AFR. AMER. 52(L) >90 ML/MIN/1.7 3 M2 02/23/2021 12:52 PM [facility] Comment: NOTE: eGFR is not calculated for patients <18 years of age. This is an estimated GFR (CKD EPI) and should not be used for calculating drug doses. 02/23/2021 11:2 7 AM RIDDLER OPERATOR us Yasmin Valenzuela II, MD LABORATORY Final R esult [facility] [address] [place] [address], [place] [phone] * CBC W/DIFF AUTOMATED (02/23/2021 11:27 AM RIDDLER OPERATOR) [facility] WBC 9.7 4.5 - 11.0 x10'3/uL 02/23/2021 12:06 PM [facility] RBC 4.21 4.20 - 5.40 x10'6/uL 02/23/2021 12:06 PM [facility] HGB 12.8 12.0 - 16.0 G/DL 02/23/2021 12:06 PM [facility] HCT 39.7 38.0 - 48.0 % 02/23/2021 12:06 PM [facility] MCV 94.3 81.0 - 99.0 FL 02/23/2021 12:06 PM [facility] MCH 30.4 27.0 - 31.0 PG 02/23/2021 12:06 PM [facility] MCHC 32.2 32.0 - 36.0 G/DL 02/23/2021 12:06 PM [facility] RDW 13.0 11.5 - 14.5 % 02/23/2021 12:06 PM [facility] PLT 270 130 - 400 x10'3/uL 02/23/2021 12:06 PM [facility] MPV 11.1 9.3 - 12.2 FL 02/23/2021 12:06 PM [facility] DIFFERENTIAL TYPE AUTOMATED DIFFERENTIAL 02/23/2021 12:06 PM [facility] NEUTROPHILS % 59.8 % 02/23/2021 12:06 PM [facility] LYMPHOCYTES % 34.2 % 02/23/2021 12:06 PM [facility] MONOCYTES % 4.3 % 02/23/2021 12:06 PM [facility] EOSINOPHILS 0.8 % 02/23/2021 12:06 PM [facility] BASOPHILS 0.6 % 02/23/2021 12:06 PM [facility] IMMATURE GRANS % 0.3 % 02/23/19 12:06 PM [facility] ABS. NEUTROPHILS TOTAL 5.77 1.80 - 7.70 x10'3/uL 02/23/2021 12:06 PM [facility] ABS. LYMPHOCYTES 3.30 1.00 - 4.80 x10'3/uL 02/23/2021 12:06 PM [facility] ABS. MONOCYTES 0.42 0.24 - 0.86 x10'3/uL 02/23/2021 12:06 PM [facility] ABS. EOSINOPHILS 0.08 0.04 - 0.36 x10'3/uL 02/23/2021 12:06 PM [facility] ABS. BASOPHILS 0.06 0.01 - 0.08 x10'3/uL 02/23/2021 12:06 PM [facility] ABS. IMMATURE GRANULOCYTES 0.03 0.00 - 0.49 x10'3/uL 02/23/2021 12:06 PM [facility] 02/23/2021 11:2 7 AM RIDDLER OPERATOR us Yasmin Valenzuela II, MD LABORATORY Final R esult [facility] [address] [place] [address], [place] [phone] * (ABNORMAL) HEMOGLOBIN, GLYCOSYLATED (02/23/2021 11:27 AM RIDDLER OPERATOR) HGB A1C 8.9(H) <5.7 % 02/23/2021 1:15 PM RIDDLER OPERATOR [facility] Comment: ADA GUIDELINES 2009 5.7 TO 6.4% INCREASED RISK OF DIABETES > OR = 6.5% CONSISTENT WITH DIABETES ESTIMATED AVG GLUCOSE 209 mg/dL 02/23/2021 1:15 PM RIDDLER OPERATOR [facility] 02/23/2021 11:2 7 AM RIDDLER OPERATOR Yasmin Valenzuela II, MD LABORATORY Final R esult [facility] [address] [place] [address], documented in this encounter Visit Diagnoses Diagnosis Type 2 diabetes mellitus with diabetic neuropathic arthropathy, with long-term current use of insulin ([facility])- Primary Chronic bilateral low back pain without [...] documented as of this encounter Care Teams Kapok Machine Operator Relationship Specialty Start Date End Date Jarred Rod MD PCP - General FAMILY PRACTICE 01/17/21 03/08/21 documented as of this encounter
--- OUTSIDE RECORDS SUMMARY | 2024-03-03 01:28 | XMS_ITS | Encounter Summary ---
Author Organization [facility] Address [address] [place] [address]. [place] [address] [place] [address] Care Team Providers Care Chef Head Name Role Phone Jarred Rod MD Primary Care Provider Unav ailable Encounter Details Date Type Department Care Team (Late st Contact Info) Description 02/21/2021 Therapy Plan [facility] Outpatient Therapy [address] [place], [place] [phone] Tracey Walker, PT [place], [place] [phone] Social History Tobacco Use Types Packs/Day Years [...] COVID-19? No / Unsure 01/24/2021 11:10 AM CRUDE UNIT OPERATOR documented as of this encounter Functional [...] patient chooses to return. Tracey Walker PT E UNIT OPERATOR documented in this encounter Plan of Treatment Upcoming Encounters Date Type Department Care Team (Late st Contact Info) Description 03/14/2024 11:45 AM CRUDE UNIT OPERATOR [facility] [phone] Marvin Mckeon MD Three [facility] [address] [place] [address] 03/20/2024 11:30 AM CRUDE UNIT OPERATOR Office Visit [facility] Family [facility] - [place] [address] [place] [phone] Abiodun Segura II, MD [address] [place] [address] documented as of this encounter Visit Diagnoses Not on filedocumented in this encounter Additional Health Concerns Assessment Noted Time PHQ-9 Depression Total Score: 0 10/09/19 21 10:02 AM CDT documented as of this encounter Care Teams Chef Head Relationship Specialty Start Date End Date Jarred Rod MD PCP - General FAMILY PRACTICE 01/17/21 03/08/21 documented as of this encounter
--- OUTSIDE RECORDS SUMMARY | 2024-03-03 01:28 | XMS_ITS | Encounter Summary ---
Author Organization [facility] Address [address] [place] [address]. [place] [address] [place] [address] Care Team Providers Care Development Officer Name Role Phone Colton SILVEIRA MD, Abiodun Rushing Primary Care Provider Encounter Details Date Type Department Care Team (Late st Contact Info) Description 04/15/2021 Orders Only [facility] Family Medicine - [place] [address] [place] [address] Abiodun Segura II, MD [address] [place] [address] Social History Tobacco Use Types [...] Coronavirus/COVID-19? No / Unsure 04/13/2021 9:54 AM MICROFILM DUPLICATING UNIT SUPERVISOR documented as of this encounter Functional [...] Contact Info) Description 03/14/2024 11:45 AM MICROFILM DUPLICATING UNIT SUPERVISOR Office Visit [facility] [phone] Marvin Mckeon MD Three [facility] [address] [place] [address] 03/20/2024 11:30 AM MICROFILM DUPLICATING UNIT SUPERVISOR Office Visit [facility] Family Medicine - [address] [phone] Abiodun Segura II, MD [address] [place] [address] documented as of this encounter Visit Diagnoses Not on filedocumented in this encounter Additional Health Concerns Assessment Noted Time PHQ-9 Depression Total Score: 0 03/08/19 9:30 AM MICROFILM DUPLICATING UNIT SUPERVISOR documented as of this encounter Care Teams Development Officer Relationship Specialty Start Date End Date Abiodun Segura II, MD [address] [place] [address] PCP - General FAMILY PRACTICE 03/09/21 documented as of this encounter
--- OUTSIDE RECORDS SUMMARY | 2024-03-03 01:28 | XMS_ITS | Encounter Summary ---
Author Organization [facility] Address [address] [place] [address]. [place] [address] [place] [address] Care Team Providers Care Bowling Ball Assembler Name Role Phone Jarred Rod MD [...] Contact Info) Description 03/14/2024 11:45 AM FUNDRAISING ASSISTANT Office Visit [facility] [phone] Marvin Mckeon MD Health system [address] [place] [address] 03/20/2024 11:30 AM FUNDRAISING ASSISTANT Office Visit [facility] Family Medicine - [place] [address] [place] [phone] Abiodun Segura II, MD [address] [place] [address] documented as of this encounter Visit Diagnoses Not on filedocumented in this encounter Additional Health Concerns Assessment Noted Time PHQ-9 Depression Total Score: 0 10/09/19 21 10:02 AM CDT documented as of this encounter Care Teams Bowling Ball Assembler Relationship Specialty Start Date End Date Jarred Rod MD PCP - General FAMILY PRACTICE 11/18/20 12/05/20 documented as of this encounter
--- OUTSIDE RECORDS SUMMARY | 2024-03-03 01:28 | XMS_ITS | Encounter Summary ---
Author Organization [facility] Address [address] [place] [address]. [place], [place] [phone] [place] [address] Care Team Providers Care Ship'S Carpenter Name Role Phone Jarred Rod MD Primary [...] COVID-19? No / Unsure 03/04/2021 10:02 AM LICENSING REGISTRATION EXAMINER documented as of this encounter Functional [...] st Contact Info) Description 03/14/2024 11:45 AM LICENSING REGISTRATION EXAMINER Office Visit [facility] [phone] Marvin Mckeon MD Three [facility] [address] [place] [address] 03/20/2024 11:30 AM LICENSING REGISTRATION EXAMINER Office Visit [facility] Family Medicine - [place] [address] [place] [phone] Abiodun Segura II, MD [address] [place] [address] documented as of this encounter Visit Diagnoses Not on filedocumented in this encounter Additional Health Concerns Assessment Noted Time PHQ-9 Depression Total Score: 0 10/09/19 21 10:02 AM CDT documented as of this encounter Care Teams Ship'S Carpenter Relationship Specialty Start Date End Date Jarred Rod MD PCP - General FAMILY PRACTICE 01/17/21 03/08/21 documented as of this encounter
--- OUTSIDE RECORDS SUMMARY | 2024-03-03 01:28 | XMS_ITS | Encounter Summary ---
Author Organization [facility] Address [address] [place] [address]. [place] [address] [place] [address] Care Team Providers Care Tire Adjuster Name Role Phone Colton SILVEIRA MD, Abiodun Rushing Primary Care Provider Reason for Visit * Reason Onset Date Comments Concerns 04/15/2021 Encounter Details Date Type Department Care Team (Late st Contact Info) Description 04/15/2021 Telephone [facility] Family Medicine - [place] [address] [place] [address] Abiodun Segura II, MD [address] [place] [address] Concerns Social History Tobacco Use [...] Coronavirus/COVID-19? No / Unsure 04/13/2021 9:54 AM ESCALATOR ATTENDANT documented as of this encounter Functional [...] to the ER for evaluation and treatment. LATOR ATTENDANT * Abiodun Segura II, MD - 04/15/2021 12:07 PM CST ----- Message from Sydney Cobos MA sent at 04/15/2021 11:22 AM ESCALATOR ATTENDANT ----- ----- Message ----- From: Willa Merino Sent: 04/15/2021 11:13 AM ESCALATOR ATTENDANT To: Abiodun Benítez Nurse LATOR ATTENDANT * Sydney Cobos MA - 04/15/2021 11:22 AM CST Please advise LATOR ATTENDANT * Willa Merino - 04/15/2021 11:06 AM CST Call back [phone] She has been taking pills that go [...] - blind in right eye. Pharmacy is [facility] in [place]. LATOR ATTENDANT documented in this encounter Plan of Treatment Upcoming Encounters Date Type Department Care Team (Late st Contact Info) Description 03/14/2024 11:45 AM ESCALATOR ATTENDANT Office Visit [facility] [phone] Marvin Mckeon MD Three [facility] [address] [place], [place] [phone] 03/20/2024 11:30 AM ESCALATOR ATTENDANT Office Visit [facility] Family Medicine - [place] [phone] Abiodun Segura II, MD [address] [place] [phone] documented as of this encounter Visit Diagnoses Not on filedocumented in this encounter Additional Health Concerns Assessment Noted Time PHQ-9 Depression Total Score: 0 03/08/19 22 9:30 AM ESCALATOR ATTENDANT documented as of this encounter Care Teams Tire Adjuster Relationship Specialty Start Date End Date Abiodun Segura II, MD [address] [place] [address] PCP - General FAMILY PRACTICE 03/09/21 documented as of this encounter
--- OUTSIDE RECORDS SUMMARY | 2024-03-03 01:28 | XMS_ITS | Encounter Summary ---
Author Organization [facility] Address [address] [place] [address]. [place] [address] [place] [address] Care Team Providers Care Orthotic Fitter Name Role Phone Colton SILVEIRA MD, Yasmin Rushing Primary Care Provider Reason for Visit * Reason Comments Follow Up Type 2 DM Encounter Details Date Type Department Care Team (Late st Contact Info) Description 04/20/2021 10:00 AM HYDRAULIC OIL TOOL OPERATOR Office Visit [facility] Family Medicine [place] [address] [place] [address] Yasmin Segura II, MD 100 [place], [place] [phone] Follow Up (Type 2 DM) Social History [...] Coronavirus/COVID-19? No / Unsure 04/20/2021 9:45 AM HYDRAULIC OIL TOOL OPERATOR documented as of this encounter Last Filed Vital Signs Vital Sign Reading Time Taken Comments Blood Pressure 130/80 04/20/2021 9:49 AM HYDRAULIC OIL TOOL OPERATOR Pulse 88 04/20/2021 9:49 AM HYDRAULIC OIL TOOL OPERATOR Temperature 36.8 ??C (98.3 ??F) 04/20/2021 9:49 AM CS T Respiratory Rate - - Oxygen Saturation 100% 04/20/2021 9:49 AM HYDRAULIC OIL TOOL OPERATOR Inhaled Oxygen Concentration - - Weight 88.5 kg (195 lb) 04/20/2021 9:49 AM HYDRAULIC OIL TOOL OPERATOR Height - - Body Mass Index 31.47 04/15/2021 4:29 PM HYDRAULIC OIL TOOL OPERATOR documented in this encounter Functional Status * RETIRED Are you deaf or do you have serious difficulty hearing Answer Date of Assessment Author Status No 04/15/2021 11:33 PM HYDRAULIC OIL TOOL OPERATOR Acti ve * RETIRED Are you blind or do you have serious difficulty seeing, even when wearing glasses? Answer Date of Assessment Author Status No 04/15/2021 11:33 PM HYDRAULIC OIL TOOL OPERATOR Acti ve * Do you have [...] from the original note were not included. [facility] [address] [address] OFFICE FOLLOW UP NOTE Encounter Date: 04/20/2021 [...] COLOR (U) LIGHT YELLOW TRANSPARENCY CLEAR Specific [place] (U) 1.012 1.001 - 1.030 U PH [...] Patient Name: Lena Youngblood Requesting Provider: Dr. Comobs - [facility] Reason for Consultation: Abdominal [...] Procedure Component Value Units Date/Time CULTURE URINE [[id number]] Collected: 04/15/21 172 Order Status: Completed Lab Status: In process Updated: 04/15/211808 Microbiology Results (last 14 days) Procedure Component Value Units Date/Time CULTURE URINE [[id number]] Collected: 04/15/21 1720 Order Status: Completed Lab [...] has previously seen Dr. Lucero In our [place] office and if she would like to continue to follow with him she can, or if she would prefer follow-up here in [place], she can follow up in our office here contact info as below Douglas Paniagua M.D. 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 CRITICAL ALERT ISSUED ON 04-15-2021 23:46:05 AULIC OIL TOOL OPERATOR CULTURE URINE Specimen: URINE, CLEAN CATCH Result [...] with long- term current use of insulin ([facility]) 2. Chronic idiopathic constipation linaCLOtide 145 MCG capsule 3. HEMA (acute kidney injury) ([facility]) COMPREHENSIVE METABOLIC PANEL 4. Renal stones Plan: Orders Placed This Encounter Medications ??? linaCLOtide 145 MCG capsule 1. Type 2 diabetes mellitus with diabetic neuropathic arthropathy, with long- term current use of insulin ([facility]) Patient's diabetes has been under better control [...] Refill: 5 3. HEMA (acute kidney injury) ([facility]) Patient had a resolving HEMA at the [...] Portions of this note were dictated using Tinybeans speech recognition software. Occasional wrong wordor sound-alike substitutions may have occurred due to the inherent limitations of voice recognition software. Please read the chart carefully and recognize, using context, where the substitutions may have occurred. AULIC OIL TOOL OPERATOR documented in this encounter Plan of Treatment Upcoming Encounters Date Type Department Care Team (Late st Contact Info) Description 03/14/2024 11:45 AM HYDRAULIC OIL TOOL OPERATOR Office Visit [facility] [phone] Marvin Mckeon MD Three [facility] [address] [place], [place] [phone] 03/20/2024 11:30 AM HYDRAULIC OIL TOOL OPERATOR Office Visit [facility] Family Medicine - [place] [address] [place] [address] Yasmin Segura II, MD [address] [place], [place] [phone] documented as of this encounter Results * (ABNORMAL) COMPREHENSIVE METABOLIC PANEL (04/29/2021 2:15 PM HYDRAULIC OIL TOOL OPERATOR) GLUCOSE 219(H) 70 - 99 MG/DL 04/29/2021 3:02 PM [facility] BUN 18 7 - 18 MG/DL 04/29/2021 3:02 PM [facility] CREATININE S/P/B 1.14(H) 0.55 - 1.02 MG/DL 04/29/2021 3:02 PM HYDRAULIC OIL TOOL OPERATOR [facility] SODIUM S/P/B 139 136 - 145 MMOL/L 04/29/2021 3:02 PM [facility] POTASSIUM S/P/B 4.5 3.5 - 5.1 MMOL/L 04/29/2021 3:02 PM [facility] CHLORIDE S/P/B 107 100 - 108 MMOL/L 04/29/2021 3:02 PM HYDRAULIC OIL TOOL OPERATOR [facility] CO2 29.1 21 - 32 MMOL/L 04/29/2021 3:02 PM [facility] CALCIUM S/P/B 9.9 8.5 - 10.1 MG/DL 04/29/2021 3:02 PM [facility] BILIRUBIN TOTAL S/P/B 0.3 0.2 - 1.2 MG/DL 04/29/2021 3:02 PM [facility] Comment: THIS ASSAY IS NOT RECOMMENDED FOR PATIENTS UNDERGOING TREATMENT WITH ELTROMBOPAG DUE TO THE POTENTIAL FOR FALSELY ELEVATED RESULTS. TOTAL PROTEIN S/P/B 8.5(H) 6.4 - 8.2 G/DL 04/29/2021 3:02 PM [facility] ALBUMIN S/P/B 3.4 3.4 - 5.0 G/DL 04/29/2021 3:02 PM [facility] AST 14(L) 15 - 37 U/L 04/29/2021 3:02 PM [facility] ALT 24 14 - 55 U/L 04/29/2021 3:02 PM [facility] ALKALINE PHOSPHATASE S/P/B 127 50 - 136 U/L 04/29/2021 3:02 PM [facility] ANION GAP 2.9(L) 5 - 15 MMOL/L 04/29/2021 3:02 PM [facility] BUN CREATININE RATIO 15.8 6 - 26 04/29/2021 3:02 PM [facility] A/G RATIO 0.7(L) 1.0 - 2.0 RATIO 04/29/2021 3:02 PM [facility] EGFR NON-AFR. AMER. 56(L) >90 ML/MIN/1.7 3 M2 04/29/2021 3:02 PM [facility] EGFR AFR. AMER. 65(L) >90 ML/MIN/1.7 3 M2 04/29/2021 3:02 PM [facility] Comment: NOTE: eGFR is not calculated for patients <18 years of age. This is an estimated GFR (CKD EPI) and should not be used for calculating drug doses. 04/29/2021 2:15 PM HYDRAULIC OIL TOOL OPERATOR Yasmin Segura II, MD LABORATORY Final R esult [facility] [address] [place] [address], [place] [phone] documented in this encounter Visit Diagnoses Diagnosis Type 2 diabetes mellitus with diabetic neuropathic arthropathy, with long-term current use of insulin ([facility])- Primary Chronic idiopathic constipation Unspecified constipation HEMA (acute kidney injury) ([facility]) Acute kidney failure, unspecified Renal stones Calculus of kidney documented in this encounter Additional Health Concerns Assessment Noted Time PHQ-9 Depression Total Score: 0 03/08/19 9:30 AM HYDRAULIC OIL TOOL OPERATOR documented as of this encounter Care Teams Orthotic Fitter Relationship Specialty Start Date End Date Yasmin Segura II, MD [address] [place] [address] PCP - General FAMILY PRACTICE 03/09/21 documented as of this encounter
--- OUTSIDE RECORDS SUMMARY | 2024-03-03 01:28 | XMS_ITS | Encounter Summary ---
Author Organization [facility] Address [address] [place] [address]. [place], [place] [phone] [place] [address] Care Team Providers Care Operations Planner Name Role Phone Jarred Rod MD Primary Care Provider Unav ailable Reason for Referral * Imaging (Routine) - Closed Specialty Diagnoses / Procedures Referred By Contac t Referred To Contact RADIOLOGY Diagnoses Hydronephrosis with ureteral stricture, not elsewhere classified Procedures US RETROPERITONEAL COMP Yasmin Valenzuela II, MD [address] [place] [address] Phone: tel: fax: Referral ID Status Reason Start Date Expiration Date Visits Re quested Visits Authorized [id number] Closed 02/23/2021 03/26/2022 1 1 T FERMENTATION ATTENDANT Reason for Visit * Imaging (Routine) - Closed Specialty Diagnoses / Procedures Referred By Contxavier chaney Referred To Contact RADIOLOGY Diagnoses Hydronephrosis with ureteral stricture, not elsewhere classified Procedures US RETROPERITONEAL COMP Yasmin Valenzuela II, MD [address] [place] [address] Phone: tel: fax: Referral ID Status Reason Start Date Expiration Date Visits Re quested Visits Authorized [id number] Closed 02/23/2021 03/26/2022 1 1 Encounter Details Date Type Department Care Team (Late st Contact Info) Description 03/04/2021 10:00 AM YEAST FERMENTATION ATTENDANT - 03/04/2021 11:59 PM YEAST FERMENTATION ATTENDANT Hospital Encounter [facility] [address] [place] [address] [address] Yasmin Valenzuela II, MD [address] [place] [address] Discharge Disposition: Home or Self Care (Routine [...] COVID-19? No / Unsure 03/04/2021 10:02 AM YEAST FERMENTATION ATTENDANT documented as of this encounter Functional [...] arthropathy, with long-term current use of insulin ([facility]) USE 1 SYRINGE SUBCUTANEOUSLY TWICE DAILY [...] arthropathy, with long-term current use of insulin ([facility]) INJECT 1.5 MG SUBCUTANEOUSLY ONCE EVERY 7 DAYS 4 mL 1 1 03/21/19 22 documented as of this encounter Progress Notes * Yasmin Valenzuela II, MD - 03/04/2021 10:00 AM CST US results reviewed. Stable findings from previous exam. Will review with patient at upcoming appointment. T FERMENTATION ATTENDANT documented in this encounter Plan of Treatment Upcoming Encounters Date Type Department Care Team (Late st Contact Info) Description 03/14/2024 11:45 AM YEAST FERMENTATION ATTENDANT Office Visit [facility] [phone] Marvin Mckeon MD Three [facility] [address] [facility] [place] [address] 03/20/2024 11:30 AM YEAST FERMENTATION ATTENDANT Office Visit [facility] Family Medicine - [place] [address] [place] [phone] Yasmin Valenzuela II, MD [address] [place] [address] documented as of this encounter Procedures Procedure Name Priority Date/Time Associated Diagnosis Comments US RETROPERITONEAL COMP Routine 03/04/19 11:08 AM YEAST FERMENTATION ATTENDANT Hydronephrosis with ureteral stricture, not elsewhere classified documented in this encounter Results * US RETROPERITONEAL COMP (03/04/2021 11:08 AM YEAST FERMENTATION ATTENDANT) Anatomical Region Laterality Modality Abdomen Ultrasound 03/04/2021 12:1 3 PM YEAST FERMENTATION ATTENDANT Impressions 03/04/2021 3:19 PM YEAST FERMENTATION ATTENDANT IMPRESSION: 1. Chronic dilation of the right [...] 03/04/2021 12:13 PM Narrative 03/04/2021 3:19 PM YEAST FERMENTATION ATTENDANT IMAGING STUDIES: ??US RETROPERITONEAL COMP ?DATE: ??03/04/2021 [...] thinning andhydronephrosis. Please evaluate for worsening. Thanks. [id number] with right hydronephrosis and renal cortical thinning. [...] as of this encounter Care Teams Operations Planner Relationship Specialty Start Date End Date Jarred Rod MD PCP - General FAMILY PRACTICE 01/17/21 03/08/21 documented as of this encounter
--- OUTSIDE RECORDS SUMMARY | 2024-03-03 01:29 | XMS_ITS | Encounter Summary ---
Author Organization [facility] Address [address] [place] [address]. [place], [place] [address] [place] [address] Care Team Providers Care Scenic Designer Name Role Phone Shira Shi PA-C Primary Care Provider [phone] Reason for Visit * Reason Comments Ultrasound [...] st Contact Info) Description 03/14/2024 11:45 AM MOUNTER SOUSAPHONES Office Visit [facility] [phone] Marvin Mckeon MD Three [facility] [address] [place], [place] [phone] 03/20/2024 11:30 AM MOUNTER SOUSAPHONES Office Visit [facility] Family Medicine - [place] [address] [place] [phone] Abiodun Segura II, MD [address] [place], [place] [address] documented as of this encounter Procedures Procedure [...] documented as of this encounter Care Teams Scenic Designer Relationship Specialty Start Date End Date Shira Shi PA-C [address] [place] [address] PCP - General PHYSICIAN ENCYCLOPEDIA RESEARCH WORKER 10/01/20 11/17/20 documented as of this encounter
--- OUTSIDE RECORDS SUMMARY | 2024-03-03 01:29 | XMS_ITS | Encounter Summary ---
Author Organization [facility] Address [address] [place] [address]. [place] [address] [place] [address] Care Team Providers Care Glass Curvature Gauger Name Role Phone Jarred Rod MD Primary Care Provider Unav ailable Reason for Visit * Reason Comments Follow Up back pain and bladde r infection Encounter Details Date Type Department Care Team (Late st Contact Info) Description 09/24/2020 10:40 AM CDT Office Visit [facility] Family Medicine [place] [address] [place] [phone] Yasmin Valenzuela II, MD [address] [place] [address] Follow Up (back pain and bladder infection) [...] from the original note were not included. [facility] [place] [phone] [place] [address] OFFICE FOLLOW UP NOTE Encounter Date: 09/24/2020 [...] Gatherings with Friends and Family: ??? Attends Church Services: ??? Active Member of Clubs or [...] COLOR (U) LIGHT YELLOW TRANSPARENCY TURBID Specific [place] (U) 1.014 1.001 - 1.030 U PH [...] Patient originally seen at urgent care in [place]. Patient also reports vaginal discharge and right [...] use of insulin ([facility]) 4. Renal calcinosis Plan: Orders Placed This [...] use of insulin ([facility]) Suspect the patient has had increased UTIs [...] st Contact Info) Description 03/14/2024 11:45 AM INFORMATION SYSTEMS PROJECT MANAGER Office Visit [facility] [phone] Marvin Mckeon MD Three [facility] [address] [place] [address] 03/20/2024 11:30 AM INFORMATION SYSTEMS PROJECT MANAGER Office Visit [facility] Family Medicine - [place] [address] [place] [phone] Yasmin Valenzuela II, MD [address] [place] [address] documented as of this encounter Results * [...] use of insulin ([facility]) 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
--- OUTSIDE RECORDS SUMMARY | 2024-03-03 01:29 | XMS_ITS | Encounter Summary ---
Author Organization [facility] Address [address] [place] [address]. [place] [address] [place] [address] Care Team Providers Care Security Sales Manager Name Role Phone Jarred Rod MD Primary Care Provider Unav ailable Reason for Referral * Consultation (Urgent) - Closed Specialty Diagnoses / Procedures Referred By Lyla chaney Referred To Contact ENDOCRINOLOGY Diagnoses Type 2 diabetes mellitus with diabetic neuropathic arthropathy, with long-term current use of insulin ([facility]) Jarred Rod MD Sitaula, Sujata, MD [address] [address] Phone: tel: fax: Referral ID Status Reason Start Date Expiration Date Visits Re quested Visits Authorized [id number] Closed 10/06/2020 04/04/2021 6 6 Scheduling Instructions Patient is scheduled 10/13/20 at 3 pm Reason for Visit * Reason Onset Date Comments Referral Request 09/24/2020 Encounter Details Date Type Department Care Team ([facility] Contact Info) Description 09/24/2020 Telephone [facility] Family Medicine - [place] [phone] Jarred Rod MD Referral Request [...] st Contact Info) Description 03/14/2024 11:45 AM MEDIC TECHNICIAN Office Visit [facility] [phone] Marvin Mckeon MD [facility] [address] [place] [address] 03/20/2024 11:30 AM MEDIC TECHNICIAN Office Visit [facility] Family Medicine [address] [phone] Abiodun Segura II, MD [address] [place] [address] Scheduled Referrals Name Type Priority Associated Diagnoses Orde r Schedule Ambulatory referral to Endocrinology ([facility]) Referral Routine Type 2 diabetes mellitus with diabetic neuropathic arthropathy, with long-term current use of insulin ([facility]) Ordered: 09/24/2020 documented as of this encounter Visit Diagnoses Diagnosis Type 2 diabetes mellitus with diabetic neuropathic arthropathy, with long-term current use of insulin ([facility])- Primary documented in this encounter Additional Health Concerns Assessment Noted Time PHQ-9 Depression Total Score: 0 09/18/19 21 11:35 AM CDT documented as of this encounter Care Teams Security Sales Manager Relationship Specialty Start Date End Date Jarred Rod MD PCP - General FAMILY PRACTICE 07/21/15 09/30/20 documented as of this encounter
--- OUTSIDE RECORDS SUMMARY | 2024-03-03 01:29 | XMS_ITS | Encounter Summary ---
Author Organization [facility] Address [address] [place] [address]. [place] [address] [place] [address] Care Team Providers Care Detail Supervisor Name Role Phone Jarred Rod MD Primary Care Provider Unav ailable Reason for Referral * Imaging (Emergency) - Closed Specialty Diagnoses / Procedures Referred By Lyla chaney Referred To Contact RADIOLOGY Procedures CT ABD+PEL W IV CON ONLY June Caputo, SUSAN Phone: tel: fax: Referral ID Status Reason Start Date Expiration Date Visits Re quested Visits Authorized [id number] Closed 09/11/2020 10/12/2021 1 1 Reason for Visit * Reason Comments Flank Pain Vaginal Discharge Foot Pain Encounter Details Date Type Department Care Team (Late st Contact Info) Description 09/11/2020 7:24 PM CDT - 09/11/2020 11:22 PM CDT Emergency [facility] Emergency Room [place], [place] [id number] June Caputo NP [address] [phone] Flank Pain; Vaginal Discharge; Foot Pain Discharge [...] Be sure to follow up with your trade specialist as well * Attachments The following attachments cannot be sent through Care Everywhere. * Urinary Tract Infection Discharge Instructions, Adult (Cameroonian) * Vaginitis (Cameroonian) documented in this encounter Medications at Time [...] COLOR (U) LIGHT YELLOW TRANSPARENCY TURBID Specific Comfort (U) 1.014 1.001 - 1.030 U PH [...] IV CON ONLY Final Result by User, [id number] (09/11 2210) EXAMINATION: ABDOMEN PELVIS CTWITH CONTRAST CLINICAL INDICATION: 40-year-old. Abdominal pain. Acute. Nonlocalized. L: Patient ambulatory to ED with c/o right sided flank pain. Patient states onset of symptoms began a few days ago. Patient originally seen at urgent care in [place]. Patient also reports vaginal discharge and right [...] TOE RT 3V Final Result by User, [id number] (09/11 1952) EXAMINATION: XR GREAT TOE RT [...] Outpatient referral to PCP and urologist and trade specialist ordered. Patient provided with phone number to [...] 30 capsule, Refills: 0 Class: Eprescribe Pharmacy: [facility] [address] [place] [address] (Ph #: [phone]) metroNIDAZOLE (METROGEL VAGINAL) 0.75 % vaginal gel Place vaginally 2 (two) times daily for 7 days. Qty: 70 g, Refills: 0 Class: Eprescribe Pharmacy: [address] (Ph #: [phone]) traMADol 50 MG tablet Take 1 tablet (50 mg total) by mouth every 8 (eight) hours as needed. Indications: Acute Pain < 7 Day Supply Qty: 20 tablet, Refills: 0 Class: Eprescribe Pharmacy: [address] (Ph #: [phone]) Associated Diagnoses: Acute cystitis without hematuria Medications [...] 30 capsule, Refills: 0 Class: Eprescribe Pharmacy: [address] (Ph #: [phone]) metroNIDAZOLE (METROGEL VAGINAL) 0.75 % vaginal gel Place vaginally 2 (two) times daily for 7 days. Qty: 70 g, Refills: 0 Class: Eprescribe Pharmacy: [facility] [address] [place] [address] - [address] [place] [address] (Ph #: [phone]) traMADol 50 MG tablet Take 1 tablet (50 mg total) by mouth every 8 (eight) hours as needed. Indications: Acute Pain < 7 Day Supply Qty: 20 tablet, Refills: 0 Class: Eprescribe Pharmacy: [facility] [address] [place] [address] (Ph #: [phone]) Associated Diagnoses: Acute cystitis without hematuria Disposition: Discharge Follow-Up: Jarred Rod MD [address] [place] [phone] As needed Aydin Hair MD [address] [place] [address] [phone] Schedule an appointment as soon as possible [...] Patient originally seen at urgent care in [place]. Patient also reports vaginal discharge and right toe pain. Patient has history of DM and toe amputation, no fever noted. Patient a/ox4 and in no respiratory distress at this time. documented in this encounter Plan of Treatment Upcoming Encounters Date Type Department Care Team (Late st Contact Info) Description 03/14/2024 11:45 AM SUPERVISOR LAST MODEL DEPARTMENT Office Visit [facility] [address] Marvin Mckeon MD Three [facility] [address] [place] [address] 03/20/2024 11:30 AM SUPERVISOR LAST MODEL DEPARTMENT Office Visit [facility] Family Medicine - [place] [address] [place] [phone] Abiodun Segura II, MD [address] [place], [place] [phone] documented as of this encounter Procedures Procedure [...] Patient originally seen at urgent care in [place]. Patient also reports vaginal discharge and right [...] [facility] ago. [facility] [place] Patient also reports vaginal discharge andright toe [...] stricture or partial obstruction. This is unchanged [id number] Stable 2 mm calcification superior pole calyx [...] Cronin DO, 09/11/2020 9:21 PM June Caputo VISITOR SERVICES ASSOCIATE CT Final Result * CULTURE URINE (09/11/2020 8:17 PM CDT) SPEC DESCRIPTION URINE CLEAN CATCH 09/11/2020 8:37 PM CDT [facility] SPECIAL REQUESTS NO SPECIAL REQUEST 09/11/2020 8:37 PM CDT [facility] CULTURE RESULT POLYMICROBIAL GROWTH CONSISTENT WITH NORMAL GENITAL AIDEN. ?? SUSCEPTIBILITIES NOT ROUTINELY PERFORMED. 09/13/2020 8:56 AM CDT [facility] URINE SPECIMEN OBTAINED BY CLEAN CATCH PROCEDURE / Unknown 09/11/2020 8:17 PM CDT 09/11/2020 8:37 PM CDT June Caputo VISITOR SERVICES ASSOCIATE MICROBIOLOGY - GENERAL ORDERA BLES Final Result [facility] [address] [place] [address], [place] [phone] * (ABNORMAL) URINALYSIS (09/11/2020 8:17 PM CDT) SPECIMEN TYPE URINE CLEAN CATCH 09/11/2020 8:14 PM CDT [facility] COLOR (U) LIGHT YELLOW 09/11/2020 8:37 PM CDT [facility] TRANSPARENCY TURBID 09/11/2020 8:37 PM CDT [facility] SPECIFIC GRAVITY (U) 1.014 1.001 - 1.030 09/11/2020 8:37 PM CDT [facility] U PH 5.5 5.0 - 9.0 09/11/2020 8:37 PM CDT [facility] LEUKOCYTES (U) 500(A) NEGATIVE 09/11/2020 8:37 PM CDT [facility] NITRITES NEGATIVE NEGATIVE 09/11/2020 8:37 PM CDT [facility] PROTEIN (U) 70(H) <30 MG/DL 09/11/2020 8:37 PM T [facility] URINE GLUCOSE 300(A) NORMAL MG/DL 09/11/2020 8:37 PM CDT [facility] KETONES MG/DL (U) NEGATIVE NEGATIVE MG/DL 09/11/2020 8:37 PM T [facility] UROBILINOGEN NORMAL NORMAL MG/DL 09/11/2020 8:37 PM T [facility] BILIRUBIN (U) NEGATIVE NEGATIVE MG/DL 09/11/2020 8:37 PM T [facility] BLOOD (U) TRACE(A) NEGATIVE 09/11/2020 8:37 PM T [facility] CULTURE & SENSITIVITY INDICATED? SPECIMEN SETUP FOR CULTURE 09/11/2020 8:37 PM T [facility] WBC/HPF 13(H) <6 /HPF 09/11/2020 8:37 PM CDT [facility] RBC/HPF 33(H) <6 /HPF 09/11/2020 8:37 PM T [facility] BACTERIA (U) FEW(A) NONE /HPF 09/11/2020 8:37 PM T [facility] BUDDING YEAST FEW(A) NONE /HPF 09/11/2020 8:37 PM CDT [facility] SQUAMOUS EPITHELIALS RARE /HPF 09/11/2020 8:37 PM CDT [facility] URINE SPECIMEN OBTAINED BY CLEAN CATCH PROCEDURE / Unknown 09/11/2020 8:17 PM CDT June K Harshal VISITOR SERVICES ASSOCIATE URINE ORDERABLES Final Result [facility] [address] [place] [address], [place] [phone] * XR GREAT TOE RT 3V (09/11/2020 [...] * LIPASE (09/11/2020 7:19 PM CDT) Pathologist [facility] LIPASE 102 73 - 393 UNITS/L 09/11/2020 8:44 PM CDT [facility] 09/11/2020 7:19 PM CDT June Caputo NP LABORATORY Final Result [facility] [address] [place] [address], [place] [phone] * (ABNORMAL) COMPREHENSIVE METABOLIC PANEL (09/11/2020 7:19 PM CDT) Pathologist [facility] GLUCOSE 197(H) 70 - 99 MG/DL 09/11/2020 8:44 PM CDT [facility] BUN 13 7 - 18 MG/DL 09/11/2020 8:44 PM CDT [facility] CREATININE S/P/B 0.93 0.55 - 1.02 MG/DL 09/11/2020 8:44 PM CDT [facility] SODIUM S/P/B 137 136 - 145 MMOL/L 09/11/2020 8:44 PM CDT [facility] POTASSIUM S/P/B 3.8 3.5 - 5.1 MMOL/L 09/11/2020 8:44 PM CDT [facility] CHLORIDE S/P/B 105 100 - 108 MMOL/L 09/11/2020 8:44 PM CDT [facility] CO2 27.0 21 - 32 MMOL/L 09/11/2020 8:44 PM CDT [facility] CALCIUM S/P/B 9.0 8.5 - 10.1 MG/DL 09/11/2020 8:44 PM CDT [facility] BILIRUBIN TOTAL S/P/B 0.4 0.2 - 1.2 MG/DL 09/11/2020 8:44 PM CDT [facility] Comment: THIS ASSAY IS NOT RECOMMENDED FOR PATIENTS UNDERGOING TREATMENT WITH ELTROMBOPAG DUE TO THE POTENTIAL FOR FALSELY ELEVATED RESULTS. TOTAL PROTEIN S/P/B 8.8(H) 6.4 - 8.2 G/DL 09/11/2020 8:44 PM CDT [facility] ALBUMIN S/P/B 3.3(L) 3.4 - 5.0 G/DL 09/11/2020 8:44 PM CDT [facility] AST 12(L) 15 - 37 U/L 09/11/2020 8:44 PM T [facility] ALT 21 14 - 55 U/L 09/11/2020 8:44 PM CDT [facility] ALKALINE PHOSPHATASE S/P/B 142(H) 50 - 136 U/L 09/11/2020 8:44 PM CDT [facility] ANION GAP 5.0 5 - 15 MMOL/L 09/11/2020 8:44 PM T [facility] BUN CREATININE RATIO 14.0 6 - 26 09/11/2020 8:44 PM CDT [facility] A/G RATIO 0.6(L) 1.0 - 2.0 RATIO 09/11/2020 8:44 PM T [facility] EGFR NON-AFR. AMER. 72(L) >90 ML/MIN/1.7 3 M2 09/11/2020 8:44 PM CDT [facility] EGFR AFR. AMER. 84(L) >90 ML/MIN/1.7 3 M2 09/11/2020 8:44 PM CDT [facility] Comment: NOTE: eGFR is not calculated for patients <18 years of age. This is an estimated GFR (CKD EPI) and should not be used for calculating drug doses. 09/11/2020 7:19 PM CDT us June Caputo NP LABORATORY Final Result [facility] [address] [place] [address], [place] [phone] * (ABNORMAL) CBC W/DIFF AUTOMATED (09/11/2020 7:19 PM CDT) WBC 14.1(H) 4.5 - 11.0 x10'3/uL 09/11/2020 8:18 PM CDT [facility] RBC 3.85(L) 4.20 - 5.40 x10'6/uL 09/11/2020 8:18 PM CDT [facility] HGB 11.7(L) 12.0 - 16.0 G/DL 09/11/2020 8:18 PM CDT [facility] HCT 34.6(L) 38.0 - 48.0 % 09/11/2020 8:18 PM CDT [facility] MCV 89.9 81.0 - 99.0 FL 09/11/2020 8:18 PM CDT [facility] MCH 30.4 27.0 - 31.0 PG 09/11/2020 8:18 PM CDT [facility] MCHC 33.8 32.0 - 36.0 G/DL 09/11/2020 8:18 PM CDT [facility] RDW 13.2 11.5 - 14.5 % 09/11/2020 8:18 PM CDT [facility] PLT 267 130 - 400 x10'3/uL 09/11/2020 8:18 PM CDT [facility] MPV 11.3 9.3 - 12.2 FL 09/11/2020 8:18 PM CDT [facility] DIFFERENTIAL TYPE AUTOMATED DIFFERENTIAL 09/11/2020 8:18 PM CDT [facility] NEUTROPHILS % 70.5 % 09/11/2020 8:18 PM CDT [facility] LYMPHOCYTES % 23.7 % 09/11/2020 8:18 PM CDT [facility] MONOCYTES % 4.4 % 09/11/2020 8:18 PM CDT [facility] EOSINOPHILS 0.6 % 09/11/2020 8:18 PM CDT [facility] BASOPHILS 0.4 % 09/11/2020 8:18 PM CDT [facility] IMMATURE GRANS % 0.4 % 09/12/19 8:18 PM CDT [facility] ABS. NEUTROPHILS TOTAL 9.94(H) 1.80 - 7.70 x10'3/uL 09/11/2020 8:18 PM CDT [facility] ABS. LYMPHOCYTES 3.34 1.00 - 4.80 x10'3/uL 09/11/2020 8:18 PM CDT [facility] ABS. MONOCYTES 0.62 0.24 - 0.86 x10'3/uL 09/11/2020 8:18 PM CDT [facility] ABS. EOSINOPHILS 0.09 0.04 - 0.36 x10'3/uL 09/11/2020 8:18 PM CDT [facility] ABS. BASOPHILS 0.05 0.01 - 0.08 x10'3/uL 09/11/2020 8:18 PM CDT [facility] ABS. IMMATURE GRANULOCYTES 0.06 0.00 - 0.49 x10'3/uL 09/11/2020 8:18 PM CDT [facility] 09/11/2020 7:19 PM CDT us June Caputo NP LABORATORY Final Result [facility] [address] [facility] [place] [address], [place] [phone] documented in this encounter Visit Diagnoses Diagnosis [...] RTR) documented in this encounter Care Teams Detail Supervisor Relationship Specialty Start Date End Date Jarred Rod MD PCP - General FAMILY PRACTICE 07/21/15 09/30/20 documented as of this encounter
--- OUTSIDE RECORDS SUMMARY | 2024-03-03 01:29 | XMS_ITS | Encounter Summary ---
Author Organization [facility] Address [address] [address]. [place] [address] [place] [address] Care Team Providers Care Bag Bundler Name Role Phone Jarred Rod MD Primary Care Provider Unav ailable Encounter Details Date Type Department Care Team (Late st Contact Info) Description 09/29/2020 1:02 PM CDT - 09/29/2020 11:59 PM CDT Hospital Encounter [facility] [address] [place] [id number] Abiodun Segura II, MD [address] [place] [phone] Discharge Disposition: Home or Self Care (Routine [...] st Contact Info) Description 03/14/2024 11:45 AM HOG SLAUGHTERER Office Visit [facility] [address] Marvin Mckeon MD [facility] [address] [place] [address] 03/20/2024 11:30 AM HOG SLAUGHTERER Office Visit [facility] Family Medicine - [place] [address] [place] [phone] Abiodun Segura II, MD 100 [place] [address] documented as of this encounter Procedures Procedure [...] documented as of this encounter Care Teams Bag Bundler Relationship Specialty Start Date End Date Jarred Rod MD PCP - General FAMILY PRACTICE 07/21/15 09/30/20 documented as of this encounter
--- OUTSIDE RECORDS SUMMARY | 2024-03-03 01:29 | XMS_ITS | Encounter Summary ---
Author Organization [facility] Address [address] [place] [address]. [place] [address] [place] [address] Care Team Providers Care Docent Coordinator Name Role Phone Shira Shi PA-C Primary Care Provider +1- [phone] Encounter Details Date Type Department Care Team (Late st Contact Info) Description 10/28/2020 Orders Only [facility] Family Medicine - [place] [address] Abstract, Doc Prevea Social History [...] st Contact Info) Description 03/14/2024 11:45 AM RESTAURANT BUSSER Office Visit [facility] [address] Marvin Mckeon MD [facility] [address] [place] [address] 03/20/2024 11:30 AM RESTAURANT BUSSER Office Visit [facility] Family Medicine - [place] [address] [place] [phone] Abiodun Segura II, MD 100 [place] [address] documented as of this encounter Procedures Procedure [...] documented as of this encounter Care Teams Docent Coordinator Relationship Specialty Start Date End Date Shiar Shi PARomaC [address] [place] [phone] PCP - General PHYSICIAN NATUROPATH 10/01/20 11/17/20 documented as of this encounter
--- OUTSIDE RECORDS SUMMARY | 2024-03-03 01:29 | XMS_ITS | Encounter Summary ---
Author Organization [facility] Address [address] [place] [address]. [place], [place] [address] [place] [address] Care Team Providers Care Route Delivery Manager Name Role Phone Jarred Rod MD Primary Care Provider Unav ailable Shira Shi PA-C Primary Care Provider +1- [phone] Jarred Rod MD Primary Care Provider Unav [...] COVID-19? No / Unsure 01/24/2021 11:10 AM MANUFACTURING DEVELOPMENT ENGINEER documented as of this encounter Functional [...] st Contact Info) Description 03/14/2024 11:45 AM MANUFACTURING DEVELOPMENT ENGINEER Office Visit [facility] [address] Marvin Mckeon MD [facility] [address] [place], [place] [phone] 03/20/2024 11:30 AM MANUFACTURING DEVELOPMENT ENGINEER Office Visit [facility] Family Medicine - [place] [phone] Abiodun Segura II, MD [address] [place] [address] documented as of this encounter Procedures Procedure Name Priority Date/Time Associated Diagnosis Comments IMAGE GENERIC 04/12/2020 documented in this encounter Results * IMAGE GENERIC (04/12/2020) Anatomical Region Laterality Modality Other 04/12/2020 Narrative 04/12/2020 Ordered by an unspecified provider. us Documents Scanned SCANNING Final Result documented in this encounter Visit Diagnoses Not on filedocumented in this encounter Care Teams Route Delivery Manager Relationship Specialty Start Date End Date Jarred Rod MD PCP - General FAMILY PRACTICE 07/21/15 09/30/20 Shira Shi PA-C [address] [place] [address] PCP - General PHYSICIAN BLASTER HELPER 10/01/20 11/17/20 Jarred Rod MD [address] [place] [address] PCP - General FAMILY PRACTICE 11/18/20 12/05/20 Abiodun Segura II, MD [address] [place] [address] PCP - General FAMILY PRACTICE 12/06/20 01/16/21 Jarred Rod MD [address] [place] [id number] PCP - General FAMILY PRACTICE 01/17/21 03/08/21 documented as of this encounter
--- OUTSIDE RECORDS SUMMARY | 2024-03-03 01:29 | XMS_ITS | Encounter Summary ---
Author Organization [facility] Address [address] [place] [address]. [place], [place] [address] [place] [address] Care Team Providers Care Machine Design Engineer Name Role Phone Jarred Rod MD Primary Care Provider Unav ailable Shira Shi PA-C Primary Care Provider +1- [phone] Jarred Rod MD Primary Care Provider Unav [...] COVID-19? No / Unsure 01/24/2021 11:10 AM RESIDENTIAL SUBSTANCE ABUSE COUNSELOR documented as of this encounter Functional [...] Contact Info) Description 03/14/2024 11:45 AM RESIDENTIAL SUBSTANCE ABUSE COUNSELOR Office Visit [facility] [address] Marvin Mckeon MD [facility] [address] [place] [address] 03/20/2024 11:30 AM RESIDENTIAL SUBSTANCE ABUSE COUNSELOR Office Visit [facility] Family Medicine - [place] 100 [place] [phone] Abiodun Segura II, MD [address] [place] [address] documented as of this encounter Visit Diagnoses Not on filedocumented in this encounter Additional Health Concerns Infection Onset Date Last Indicated Resolved Time COVID-19 Confirmed 12/13/2019 12/13/2019 0 12:34 AM RESIDENTIAL SUBSTANCE ABUSE COUNSELOR documented as of this encounter Care Teams Machine Design Engineer Relationship Specialty Start Date End Date Jarred Rod MD PCP - General FAMILY PRACTICE 07/21/15 09/30/20 Shira Shi PA-C [address] [place] [address] PCP - General PHYSICIAN LOAN ANALYST 10/01/20 11/17/20 Jarred Rod MD [address] [place] [address] PCP - General FAMILY PRACTICE 11/18/20 12/05/20 Abiodun Segura II, MD [address] [place] [address] PCP - General FAMILY PRACTICE 12/06/20 01/16/21 Jarred Rod MD [address] [place] [address] PCP - General FAMILY PRACTICE 01/17/21 03/08/21 documented as of this encounter
--- OUTSIDE RECORDS SUMMARY | 2024-03-03 01:29 | XMS_ITS | Encounter Summary ---
Author Organization [facility] Address [address] [place] [address]. [place], [place] [address] [place] [address] Care Team Providers Care Physician Relations Manager Name Role Phone Jarred Rod MD Primary Care Provider Unav ailable Shira Shi PA-C Primary Care Provider +1- [phone] Jarred Rod MD Primary Care Provider Unav [...] COVID-19? No / Unsure 01/24/2021 11:10 AM PRIMARY SCHOOL PRINCIPAL documented as of this encounter Functional Status [...] st Contact Info) Description 03/14/2024 11:45 AM PRIMARY SCHOOL PRINCIPAL Office Visit [facility] [address] Marvin Mckeon MD [facility] [address] [place] [address] 03/20/2024 11:30 AM PRIMARY SCHOOL PRINCIPAL Office Visit [facility] [place] [phone] Abiodun Segura II, MD [address] [place] [address] documented as of this encounter Visit Diagnoses Not on filedocumented in this encounter Care Teams Physician Relations Manager Relationship Specialty Start Date End Date Jarred Rod MD PCP - General FAMILY PRACTICE 07/21/15 09/30/20 Shira Shi PA-C [address] [place] [address] PCP - General PHYSICIAN DECORATING AND ASSEMBLY SUPERVISOR 10/01/20 11/17/20 Jarred Rod MD [address] [place] [address] PCP - General FAMILY PRACTICE 11/18/20 12/05/20 Abiodun Segura II, MD [address] [place] [address] PCP - General FAMILY PRACTICE 12/06/20 01/16/21 Jarred Rod MD [address] [place] [address] PCP - General FAMILY PRACTICE 01/17/21 03/08/21 documented as of this encounter
--- OUTSIDE RECORDS SUMMARY | 2024-03-03 01:29 | XMS_ITS | Encounter Summary ---
Author Organization [facility] Address [address] [place] [address]. [place] [address] [place] [address] Care Team Providers Care Assistant Professor Of Sociology Name Role Phone Jarred Rod MD Primary [...] st Contact Info) Description 03/14/2024 11:45 AM SPECIMEN COLLECTOR Office Visit [facility] [address] Marvin Mckeon MD [facility] [address] [place] [address] 03/20/2024 11:30 AM SPECIMEN COLLECTOR Office Visit [facility] Family Medicine - [place] 100 [place] [phone] Abiodun Segura II, MD 100 [place] [address] documented as of this encounter Visit Diagnoses Not on filedocumented in this encounter Additional Health Concerns Assessment Noted Time PHQ-9 Depression Total Score: 0 09/18/19 21 11:35 AM CDT documented as of this encounter Care Teams Assistant Professor Of Sociology Relationship Specialty Start Date End Date Jarred Rod MD PCP - General FAMILY PRACTICE 07/21/15 09/30/20 documented as of this encounter
--- OUTSIDE RECORDS SUMMARY | 2024-03-03 01:29 | XMS_ITS | Encounter Summary ---
Author Organization [facility] Address [address] [place] [address]. [place] [address] [place] [address] Care Team Providers Care Pet Supplies Salesperson Name Role Phone Jarred Rod MD Primary Care Provider Unav ailable Reason for Referral * Imaging (Routine) - Closed Specialty Diagnoses / Procedures Referred By Lyla chaney Referred To Contact RADIOLOGY Diagnoses Postmenopausal Procedures BONE DENSITY/DEXA Audie Vides PA-C [address] [place] [address] Phone: tel: fax: Referral ID Status Reason Start Date Expiration Date Visits Re quested Visits Authorized [id number] Closed 07/21/2020 08/20/2021 1 1 Reason for Visit * Imaging (Routine) - Closed Specialty Diagnoses / Procedures Referred By Lyla chaney Referred To Contact RADIOLOGY Diagnoses Postmenopausal Procedures BONE DENSITY/DEXA Audie Vides PA-C [address] [place] [address]. [place] [address] Phone: tel: fax: Referral ID Status Reason Start Date Expiration Date Visits Re quested Visits Authorized [id number] Closed 07/21/2020 08/20/2021 1 1 Encounter Details Date Type Department Care Team (Late st Contact Info) Description 07/29/2020 10:00 AM CDT - 07/29/2020 11:59 PM CDT Hospital Encounter [facility] [place] [address] [address] Audie Vides PA-C [address] [place] [address] Discharge Disposition: Home or Self Care (Routine [...] Contact Info) Description 03/14/2024 11:45 AM ENGINEERING TEST MECHANIC Office Visit [facility] [address] Marvin Mckeon MD Three [facility] [address] [place] [address] 03/20/2024 11:30 AM ENGINEERING TEST MECHANIC Office Visit [facility] Family Medicine - [place] 100 [place] [phone] Abiodun Segura II, MD 100 [place] [address] documented as of this encounter Procedures Procedure [...] Lumbar Spine L1 through L4 ?BMD Patient (/[facility]): 1.349 ?T-Score (Standard deviations from young adult peak bone density): 2.7 ?Right femoral neck: ?BMD Patient ([facility]): 0.940 ?T-Score (Standard deviations from young adult peak bone density): 0.8 ? Total Right femur: ?BMD Patient (/[facility]): 1.252 ? T-Score (Standard deviations [...] bone mineral density test. For patients eligible [facility], routine testing is allowed once every 2 [...] (natural) documented in this encounter Care Teams Pet Supplies Salesperson Relationship Specialty Start Date End Date Jarred Rod MD PCP - General FAMILY PRACTICE 07/21/15 09/30/20 documented as of this encounter
--- OUTSIDE RECORDS SUMMARY | 2024-03-03 01:29 | XMS_ITS | Encounter Summary ---
Author Organization [facility] Address [address] [place] [address]. [place], [place] [address] [place] [address] Care Team Providers Care Fuel Verification Technician Name Role Phone Jarred Rod MD Primary Care Provider Unav ailable Shira Shi PA-C Primary Care Provider +1- [phone] Jarred Rod MD Primary Care Provider Unav [...] COVID-19? No / Unsure 01/24/2021 11:10 AM WORKFORCE PLANNER documented as of this encounter Functional Status [...] st Contact Info) Description 03/14/2024 11:45 AM WORKFORCE PLANNER Office Visit [facility] [phone] Marvin Mckeon MD Three [facility] [address] [place], [place] [phone] 03/20/2024 11:30 AM WORKFORCE PLANNER Office Visit [facility] Family Medicine - [place] 100 [place] [phone] Abiodun Segura II, MD [address] [place] [address] documented as of this encounter Procedures Procedure Name Priority Date/Time Associated Diagnosis Comments PROCEDURE GENERIC (SCAN ORDER) 03/30/2020 documented in this encounter Results * PROCEDURE GENERIC (03/30/2020) 03/30/2020 Narrative 03/30/2020 Ordered by an unspecified provider. us Documents Scanned SCANNING Final Result documented in this encounter Visit Diagnoses Not on filedocumented in this encounter Care Teams Fuel Verification Technician Relationship Specialty Start Date End Date Jarred Rod MD PCP - General FAMILY PRACTICE 07/21/15 09/30/20 Shira Shi PA-C [address] [place] [address] PCP - General PHYSICIAN TALENT ACQUISITION ASSOCIATE 10/01/20 11/17/20 Jarred Rod MD [address] [place] [address] PCP - General FAMILY PRACTICE 11/18/20 12/05/20 Abiodun Segura II, MD [address] [place] [address] PCP - General FAMILY PRACTICE 12/06/20 01/16/21 Jarred Rod MD [address] [place] [address] PCP - General FAMILY PRACTICE 01/17/21 03/08/21 documented as of this encounter
--- OUTSIDE RECORDS SUMMARY | 2024-03-03 01:29 | XMS_ITS | Encounter Summary ---
Author Organization [facility] Address [address] [place] [address]. [place], [place] [address] [place] [address] Care Team Providers Care Quotation Checker Name Role Phone Shira Shi PA-C Primary Care Provider +1- [phone] Jarred Rod MD Primary Care Provider Unav [...] Contact Info) Description 03/14/2024 11:45 AM CLINICAL MANAGER Office Visit [facility] [phone] Marvin Mckeon MD Three [facility] [address] [place] [address] 03/20/2024 11:30 AM CLINICAL MANAGER Office Visit [facility] Medical [facility] Family Medicine - [place] 100 [place] [phone] Abiodun Segura II, MD 100 [place] [address] documented as of this encounter Visit Diagnoses Not on filedocumented in this encounter Additional Health Concerns Assessment Noted Time PHQ-9 Depression Total Score: 0 10/09/19 21 10:02 AM CDT documented as of this encounter Care Teams Quotation Checker Relationship Specialty Start Date End Date Shira Shi PA-C 100 [place] [address] PCP - General PHYSICIAN EARLY CHILDHOOD SERVICES COORDINATOR 10/01/20 11/17/20 Jarred Rod MD [address] [place] [address] PCP - General FAMILY PRACTICE 11/18/20 12/05/20 documented as of this encounter
--- OUTSIDE RECORDS SUMMARY | 2024-03-03 01:29 | XMS_ITS | Encounter Summary ---
Author Organization [facility] Address [address] [place] [address]. [place], [place] [address] [place] [address] Care Team Providers Care Can Runner Name Role Phone Jarred Rod MD Primary Care Provider Unav ailable Shira Shi PA-C Primary Care Provider +1- [phone] Jarred Rod MD Primary Care Provider Unav [...] COVID-19? No / Unsure 01/24/2021 11:10 AM HUMAN INTELLIGENCE documented as of this encounter Functional Status [...] st Contact Info) Description 03/14/2024 11:45 AM HUMAN INTELLIGENCE Office Visit [facility] [phone] Marvin Mckeon MD Three [facility] [address] [place] [address] 03/20/2024 11:30 AM HUMAN INTELLIGENCE Office Visit [facility] Medical [facility] Family Medicine - [place] [phone] Abiodun Segura II, MD [address] [place] [address] documented as of this encounter Visit Diagnoses Not on filedocumented in this encounter Care Teams Can Runner Relationship Specialty Start Date End Date Jarred Rod MD PCP - General FAMILY PRACTICE 07/21/15 09/30/20 Shira Shi PA-C [address] [place] [address] PCP - General PHYSICIAN SHERIFF DETECTIVE 10/01/20 11/17/20 Jarred Rod MD [address] [place] [address] PCP - General FAMILY PRACTICE 11/18/20 12/05/20 Abiodun Segura II, MD [address] [place] [address] PCP - General FAMILY PRACTICE 12/06/20 01/16/21 Jarred Rod MD [address] [place] [address] PCP - General FAMILY PRACTICE 01/17/21 03/08/21 documented as of this encounter
--- OUTSIDE RECORDS SUMMARY | 2024-03-03 01:29 | XMS_ITS | Encounter Summary ---
Author Organization [facility] Address [address] [place] [address]. [place], [place] [address] [place] [address] Care Team Providers Care Sales Trader Name Role Phone Jarred Rod MD Primary Care Provider Unav ailable Shira Shi PA-C Primary Care Provider +1- [phone] Jarred Rod MD Primary Care Provider Unav [...] COVID-19? No / Unsure 01/24/2021 11:10 AM CHRONIC CARE NURSE documented as of this encounter Functional [...] st Contact Info) Description 03/14/2024 11:45 AM CHRONIC CARE NURSE Office Visit [facility] [phone] Marvin Mckeon MD Three [facility] [address] [place] [address] 03/20/2024 11:30 AM CHRONIC CARE NURSE Office Visit [facility] Family Medicine - [place] [phone] Abiodun Segura II, MD [address] [place] [address] documented as of this encounter Visit Diagnoses Not on filedocumented in this encounter Care Teams Sales Trader Relationship Specialty Start Date End Date Jarred Rod MD PCP - General FAMILY PRACTICE 07/21/15 09/30/20 Shira Shi PA-C [address] [place] [address] PCP - General PHYSICIAN PROFESSOR OF INDUSTRIAL TECHNOLOGY 10/01/20 11/17/20 Jarred Rod MD [address] [place] [address] PCP - General FAMILY PRACTICE 11/18/20 12/05/20 Abiodun Segura II, MD [address] [place] [address] PCP - General FAMILY PRACTICE 12/06/20 01/16/21 Jarred Rod MD [address] [place] [address] PCP - General FAMILY PRACTICE 01/17/21 03/08/21 documented as of this encounter
--- OUTSIDE RECORDS SUMMARY | 2024-03-03 01:29 | XMS_ITS | Encounter Summary ---
Author Organization [facility] Address [address] [place] [address]. [place], [place] [address] [place] [address] Care Team Providers Care Social Media Assistant Name Role Phone Jarred Rod MD [...] st Contact Info) Description 03/14/2024 11:45 AM SUPPLY CHAIN VICE PRESIDENT Office Visit [facility] [address] Marvin Mckeon MD [facility] [address] [place] [address] 03/20/2024 11:30 AM SUPPLY CHAIN VICE PRESIDENT Office Visit [facility] Family Medicine - [address] [phone] Abiodun Segura II, MD [address] [place] [address] documented as of this encounter Visit Diagnoses Not on filedocumented in this encounter Care Teams Social Media Assistant Relationship Specialty Start Date End Date Jarred Rod MD PCP - General FAMILY PRACTICE 07/21/15 09/30/20 documented as of this encounter
--- OUTSIDE RECORDS SUMMARY | 2024-03-03 01:29 | XMS_ITS | Encounter Summary ---
Author Organization [facility] Address [address] [place] [address]. [place], [place] [address] [place] [address] Care Team Providers Care Insulation Nozzleman Name Role Phone Jarred Rod MD Primary Care Provider Unav ailable Shira Shi PA-C Primary Care Provider +1- [phone] Jarred Rod MD Primary Care Provider Unav [...] COVID-19? No / Unsure 01/24/2021 11:10 AM WASTE SALVAGER documented as of this encounter Functional Status [...] st Contact Info) Description 03/14/2024 11:45 AM WASTE SALVAGER Office Visit [facility] [phone] Marvin Mckeon MD Three [facility] [address] [place] [address] 03/20/2024 11:30 AM WASTE SALVAGER Office Visit [facility] Medical Group Family Medicine - [place] [phone] Abiodun Segura II, MD [address] [place] [address] documented as of this encounter Visit Diagnoses Not on filedocumented in this encounter Care Teams Insulation Nozzleman Relationship Specialty Start Date End Date Jarred Rod MD PCP - General FAMILY PRACTICE 07/21/15 09/30/20 Shira Shi PA-C [address] [place] [address] PCP - General PHYSICIAN DIANETIC COUNSELOR 10/01/20 11/17/20 Jarred Rod MD [address] [place] [address] PCP - General FAMILY PRACTICE 11/18/20 12/05/20 Abiodun Segura II, MD [address] [place] [address] PCP - General FAMILY PRACTICE 12/06/20 01/16/21 Jarred Rod MD [address] [place] [address] PCP - General FAMILY PRACTICE 01/17/21 03/08/21 documented as of this encounter
--- OUTSIDE RECORDS SUMMARY | 2024-03-03 01:29 | XMS_ITS | Encounter Summary ---
Author Organization [facility] Address [address] [place] [address]. [place], [place] [address] [place] [address] Care Team Providers Care Special Systems Technician Name Role Phone Jarred Rod MD Primary Care Provider Unav ailable Shira Shi PA-C Primary Care Provider +1- [phone] Jarred Rod MD Primary Care Provider Unav [...] COVID-19? No / Unsure 01/24/2021 11:10 AM JBOSS DEVELOPER documented as of this encounter Functional [...] st Contact Info) Description 03/14/2024 11:45 AM JBOSS DEVELOPER Office Visit [facility] [address] Marvin Mckeon MD Three [facility] [address] [place], [place] [phone] 03/20/2024 11:30 AM JBOSS DEVELOPER Office Visit [facility] Medical [facility] Family Medicine - [place] [phone] Abiodun Segura II, MD [address] [place] [address] documented as of this encounter Procedures Procedure Name Priority Date/Time Associated Diagnosis Comments OUTSIDE LAB (SCAN ORDER) 06/30/2020 documented in this encounter Results * OUTSIDE LAB (SCAN) (06/30/2020) 06/30/2020 Narrative 06/30/2020 Ordered by an unspecified provider. us Documents Scanned SCANNING Final Result documented in this encounter Visit Diagnoses Not on filedocumented in this encounter Care Teams Special Systems Technician Relationship Specialty Start Date End Date Jarred Rod MD PCP - General FAMILY PRACTICE 07/21/15 09/30/20 Shira Shi PA-C [address] [place] [address] PCP - General PHYSICIAN MANAGER BUILDING 10/01/20 11/17/20 Jarred Rod MD [address] [place] [address] PCP - General FAMILY PRACTICE 11/18/20 12/05/20 Abiodun Segura II, MD [address] [place] [address] PCP - General FAMILY PRACTICE 12/06/20 01/16/21 Jarred Rod MD [address] [place] [address] PCP - General FAMILY PRACTICE 01/17/21 03/08/21 documented as of this encounter
--- OUTSIDE RECORDS SUMMARY | 2024-03-03 01:29 | XMS_ITS | Encounter Summary ---
Author Organization [facility] Address [address] [place] [address]. [place], [place] [address] [place] [address] Care Team Providers Care Process Excellence Manager Name Role Phone Jarred Rod MD Primary Care Provider Unav ailable Shira Shi PA-C Primary Care Provider +1- [phone] Jarred Rod MD Primary Care Provider Unav ailable Colton SILVEIRA MD, Abiodun L Primary Care Provider Jarred Rod MD Primary Care Provider Unav ailable Reason for Visit * Reason Comments Mammogram (SCAN) Encounter Details Date Type Department Care Team ([facility] st Contact Info) Description 03/15/2020 [...] COVID-19? No / Unsure 01/24/2021 11:10 AM COMPLAINT MANAGER documented as of this encounter Functional [...] st Contact Info) Description 03/14/2024 11:45 AM COMPLAINT MANAGER Office Visit [facility] [phone] Marvin Mckeon MD [facility] [address] [place], [place] [phone] 03/20/2024 11:30 AM COMPLAINT MANAGER Office Visit [facility] Medical [facility] Family Medicine - [address] [phone] Abiodun Segura II, MD [address] [place] [address] documented as of this encounter Procedures Procedure Name Priority Date/Time Associated Diagnosis Comments MAMMOGRAM GENERIC (SCAN ORDER) 03/15/2020 documented in this encounter Results * MAMMOGRAM GENERIC (03/15/2020) Anatomical Region Laterality Modality Other 03/15/2020 Narrative 03/15/2020 Ordered by an unspecified provider. us Documents Scanned SCANNING Final Result documented in this encounter Visit Diagnoses Not on filedocumented in this encounter Care Teams Process Excellence Manager Relationship Specialty Start Date End Date Jarred Rod MD PCP - General FAMILY PRACTICE 07/21/15 09/30/20 Shira Shi PA-C [address] [place] [address] PCP - General PHYSICIAN PLYWOOD MATCHER 10/01/20 11/17/20 Jarred Rod MD [address] [place] [address] PCP - General FAMILY PRACTICE 11/18/20 12/05/20 Abiodun Segura II, MD [address] [place] [address] PCP - General FAMILY PRACTICE 12/06/20 01/16/21 Jarred Rod MD [address] [place] [address] PCP - General FAMILY PRACTICE 01/17/21 03/08/21 documented as of this encounter
--- OUTSIDE RECORDS SUMMARY | 2024-03-03 01:29 | XMS_ITS | Encounter Summary ---
Author Organization [facility] Address [address] [place] [address]. [place] [address] [place] [address] Care Team Providers Care Florist Name Role Phone Jarred Rod MD Primary Care Provider Unav ailable Reason for Visit * Reason Comments Lab (SCAN) Encounter Details Date Type Department Care Team (Late st Contact Info) Description 09/15/2020 Scan [facility] Information Services [place], [place] [phone] Scanned, Documents Lab (SCAN) Social History Tobacco [...] st Contact Info) Description 03/14/2024 11:45 AM CHILD PROTECTIVE INVESTIGATOR Office Visit [facility] [address] Marvin Mckeon MD Three [facility] [address] [place] [address] 03/20/2024 11:30 AM CHILD PROTECTIVE INVESTIGATOR Office Visit [facility] Medical [facility] Family Medicine - [place] 100 [place] [phone] Abiodun Segura II, MD 100 [place] [address] documented as of this encounter Procedures Procedure Name Priority Date/Time Associated Diagnosis Comments OUTSIDE LAB (SCAN ORDER) Routine 09/11/2020 documented in this encounter Results * OUTSIDE LAB (SCAN) (09/11/2020) 09/11/2020 us Documents Scanned SCANNING Final Result [facility] documented in this encounter Visit Diagnoses Not on filedocumented in this encounter Care Teams Florist Relationship Specialty Start Date End Date Jarred Rod MD PCP - General FAMILY PRACTICE 07/21/15 09/30/20 documented as of this encounter
--- OUTSIDE RECORDS SUMMARY | 2024-03-03 01:29 | XMS_ITS | Encounter Summary ---
Author Organization [facility] Address [address] [place] [address]. [place], [place] [address] [place] [address] Care Team Providers Care Coating Engineer Name Role Phone Jarred Rod MD [...] Contact Info) Description 03/14/2024 11:45 AM PRODUCTION STAFF WORKER Office Visit [facility] [phone] Marvin Mckeon MD [facility] [address] [place] [address] 03/20/2024 11:30 AM PRODUCTION STAFF WORKER Office Visit [facility] Family Medicine - [address] [phone] Abiodun Segura II, MD [address] [place] [address] documented as of this encounter Visit Diagnoses Not on filedocumented in this encounter Additional Health Concerns Infection Onset Date Last Indicated Resolved Time COVID-19 Rule Out 12/13/2019 12/13/2019 12/14/2019 3:06 PM CDT documented as of this encounter Care Teams Coating Engineer Relationship Specialty Start Date End Date Jarred Rod MD PCP - General FAMILY PRACTICE 07/21/15 09/30/20 documented as of this encounter
--- OUTSIDE RECORDS SUMMARY | 2024-03-03 01:29 | XMS_ITS | Encounter Summary ---
Author Organization [facility] Address [address] [place] [address]. [place], [place] [address] [place] [address] Care Team Providers Care Ror Engineer Name Role Phone Jarred Rod MD [...] st Contact Info) Description 03/14/2024 11:45 AM ROOMS DIRECTOR Office Visit [facility] [phone] Marvin Mckeon MD [facility] [address] [place] [address] 03/20/2024 11:30 AM ROOMS DIRECTOR Office Visit [facility] Medical Group Family Medicine - [address] [phone] Abiodun Segura II, MD [address] [place] [address] documented as of this encounter Visit Diagnoses Not on filedocumented in this encounter Care Teams Ror Engineer Relationship Specialty Start Date End Date Jarred Rod MD PCP - General FAMILY PRACTICE 07/21/15 09/30/20 documented as of this encounter
--- OUTSIDE RECORDS SUMMARY | 2024-03-03 01:29 | XMS_ITS | Encounter Summary ---
Author Organization [facility] Address [address] [place] [address]. [place], [place] [address] [place] [address] Care Team Providers Care Dye And Chemical Coordinator Name Role Phone Jarred Rod MD Primary Care Provider Unav ailable Shira Shi PA-C Primary Care Provider +1- [phone] Jarred Rod MD Primary Care Provider Unav [...] COVID-19? No / Unsure 01/24/2021 11:10 AM FORMER HAND documented as of this encounter Functional [...] st Contact Info) Description 03/14/2024 11:45 AM FORMER HAND Office Visit [facility] [address] Marvin Mckeon MD Three [facility] [address] [place], [place] [phone] 03/20/2024 11:30 AM FORMER HAND Office Visit [facility] Family Medicine - [place] [phone] Abiodun Segura II, MD [address] [place] [address] documented as of this encounter Procedures Procedure [...] COVID-19 Confirmed 12/13/2019 12/13/2019 0 12:34 AM FORMER HAND documented as of this encounter Care Teams Dye And Chemical Coordinator Relationship Specialty Start Date End Date Jarred Rod MD PCP - General FAMILY PRACTICE 07/21/15 09/30/20 Shira Shi PA-C [address] [place] [address] PCP - General PHYSICIAN CERTIFIED FRAUD EXAMINER 10/01/20 11/17/20 Jarred Rod MD [address] [place] [address] PCP - General FAMILY PRACTICE 11/18/20 12/05/20 Abiodun Segura II, MD [address] [place] [address] PCP - General FAMILY PRACTICE 12/06/20 01/16/21 Jarred Rod MD [address] [place] [address] PCP - General FAMILY PRACTICE 01/17/21 03/08/21 documented as of this encounter
--- OUTSIDE RECORDS SUMMARY | 2024-03-03 01:29 | XMS_ITS | Encounter Summary ---
Author Organization [facility] Address [address] [place] [address]. [place], [place] [address] [place] [address] Care Team Providers Care Retail Administrative Assistant Name Role Phone Jarred Rod MD Primary Care Provider Unav ailable Shira Shi PA-C Primary Care Provider +1- [phone] Jarred Rod MD Primary Care Provider Unav [...] COVID-19? No / Unsure 01/24/2021 11:10 AM DISTRIBUTION ENGINEERING TECHNOLOGIST documented as of this encounter Functional Status [...] st Contact Info) Description 03/14/2024 11:45 AM DISTRIBUTION ENGINEERING TECHNOLOGIST Office Visit [facility] [address] Marvin Mckeon MD [facility] [address] [place] [address] 03/20/2024 11:30 AM DISTRIBUTION ENGINEERING TECHNOLOGIST Office Visit [facility] Family Medicine - [place] 100 [place] [phone] Abiodun Segura II, MD [address] [place] [address] documented as of this encounter Visit Diagnoses Not on filedocumented in this encounter Additional Health Concerns Infection Onset Date Last Indicated Resolved Time COVID-19 Rule Out 12/13/2019 12/13/2019 12/14/2019 3:06 PM CDT COVID-19 Confirmed 12/13/2019 12/13/2019 0 12:34 AM DISTRIBUTION ENGINEERING TECHNOLOGIST documented as of this encounter Care Teams Retail Administrative Assistant Relationship Specialty Start Date End Date Jarred Rod MD PCP - General FAMILY PRACTICE 07/21/15 09/30/20 Shira Shi PA-C [address] [place] [address] PCP - General PHYSICIAN INCOME TAX CONSULTANT 10/01/20 11/17/20 Jarred Rod MD [address] [place] [address] PCP - General FAMILY PRACTICE 11/18/20 12/05/20 Abiodun Segura II, MD [address] [place] [address] PCP - General FAMILY PRACTICE 12/06/20 01/16/21 Jarred Rod MD [address] [place] [address] PCP - General FAMILY PRACTICE 01/17/21 03/08/21 documented as of this encounter
--- OUTSIDE RECORDS SUMMARY | 2024-03-03 01:29 | XMS_ITS | Encounter Summary ---
Author Organization [facility] Address [address] [place] [address]. [place] [address] [place] [address] Care Team Providers Care Printed Circuit Board Drafter Name Role Phone Jarred Rod MD Primary Care Provider Unav ailable Reason for Visit * Reason Onset Date Comments Medication Request 09/10/2020 Encounter Details Date Type Department Care Team (Late st Contact Info) Description 09/10/2020 Telephone [facility] Family Medicine - [place] 100 [place] [address] Jarred Rod MD Medication Request [...] st Contact Info) Description 03/14/2024 11:45 AM INSTRUMENT MAKER Office Visit [facility] [address] Marvin Mckeon MD Three [facility] [address] [place] [address] 03/20/2024 11:30 AM INSTRUMENT MAKER Office Visit [facility] Family Medicine - [place] 100 [place] [phone] Abiodun Segura II, MD 100 [place] [address] documented as of this encounter Visit Diagnoses Diagnosis Vaginal candidiasis- Primary Candidiasis of vulva and vagina documented in this encounter Care Teams Printed Circuit Board Drafter Relationship Specialty Start Date End Date Jarred Rod MD PCP - General FAMILY PRACTICE 07/21/15 09/30/20 documented as of this encounter
--- OUTSIDE RECORDS SUMMARY | 2024-03-03 01:29 | XMS_ITS | Encounter Summary ---
Author Organization [facility] Address [address] [place] [address]. [place], [place] [address] [place] [address] Care Team Providers Care Installations Inspector Name Role Phone Jarred Rod MD Primary Care Provider Unav ailable Shira Shi PA-C Primary Care Provider +1- [phone] Jarred Rod MD Primary Care Provider Unav [...] COVID-19? No / Unsure 01/24/2021 11:10 AM EDIPHONE OPERATOR documented as of this encounter Functional [...] st Contact Info) Description 03/14/2024 11:45 AM EDIPHONE OPERATOR Office Visit [facility] [phone] Marvin Mckeon MD [facility] [address] [place], [place] [phone] 03/20/2024 11:30 AM EDIPHONE OPERATOR Office Visit [facility] Family Medicine - [place] [phone] Abiodun Segura II, MD [address] [place] [address] documented as of this encounter Procedures Procedure Name Priority Date/Time Associated Diagnosis Comments BONE DENSITY GENERIC (SCAN ORDER) 07/29/2020 documented in this encounter Results * BONE DENSITY GENERIC (07/29/2020) Anatomical Region Laterality Modality Other 07/29/2020 Narrative 07/29/2020 Ordered by an unspecified provider. us Documents Scanned SCANNING Final Result documented in this encounter Visit Diagnoses Not on filedocumented in this encounter Care Teams Installations Inspector Relationship Specialty Start Date End Date Jarred Rod MD PCP - General FAMILY PRACTICE 07/21/15 09/30/20 Shira Shi PA-C [address] [place] [address] PCP - General PHYSICIAN RF DESIGN ENGINEER 10/01/20 11/17/20 Jarred Rod MD [address] [place] [address] PCP - General FAMILY PRACTICE 11/18/20 12/05/20 Abiodun Segura II, MD [address] [place] [address] PCP - General FAMILY PRACTICE 12/06/20 01/16/21 Jarred Rod MD [address] [place] [address] PCP - General FAMILY PRACTICE 01/17/21 03/08/21 documented as of this encounter
--- OUTSIDE RECORDS SUMMARY | 2024-03-03 01:29 | XMS_ITS | Encounter Summary ---
Author Organization [facility] Address [address] [place] [address]. [place], [place] [address] [place] [address] Care Team Providers Care Curb Machine Operator Name Role Phone Shira Shi PA-C Primary Care Provider +1- [phone] Reason for Visit * Reason Comments Lab [...] Contact Info) Description 03/14/2024 11:45 AM LIFE CLAIMS EXAMINER Office Visit [facility] [address] Marvin Mckeon MD Three [facility] [address] [place], [place] [phone] 03/20/2024 11:30 AM LIFE CLAIMS EXAMINER Office Visit [facility] Family Medicine - [place] 100 [place] [phone] Abiodun Segura II, MD 100 [place] [address] documented as of this encounter Procedures Procedure [...] documented as of this encounter Care Teams Curb Machine Operator Relationship Specialty Start Date End Date Shira Shi PA-C [address] [place] [address]. [place] [address] PCP - General PHYSICIAN HELIOTHERAPIST 10/01/20 11/17/20 documented as of this encounter
--- OUTSIDE RECORDS SUMMARY | 2024-03-03 01:29 | XMS_ITS | Encounter Summary ---
Author Organization [facility] Address [address] [place] [address]. [place], [place] [address] [place] [address] Care Team Providers Care Horse Racetrack Manager Name Role Phone Shira Shi PA-C Primary Care Provider +1- [phone] Reason for Referral * Consultation (Routine) - Closed Specialty Diagnoses / Procedures Referred By Lyla chaney Referred To Contact GASTROENTEROLOGY Diagnoses Right upper quadrant abdominal pain Yasmin Segura II, MD [address] [place] [address] Phone: tel: fax: Deep Jaramillo MD [address] [place] [address] Phone: tel: fax: Referral ID Status Reason Start Date Expiration Date V isits Requested Visits Authorized [id number] Closed Specialty Services 10/08/2020 04/06/2021 6 6 [...] Description 10/08/2020 9:40 AM CDT Office Visit [facility] Family Medicine - [place] 100 [place] [phone] Yasmin Segura II, MD 100 [place] [address] Back Pain (Patient presents today for a [...] from the original note were not included. [facility] FAMILY [address] [address] OFFICE FOLLOW UP NOTE Encounter Date: 10/08/2020 [...] Gatherings with Friends and Family: ??? Attends Mormonism Services: ??? Active Member of Clubs or [...] ABD LIMITED Ambulatory referral to Gastroenterology ([facility] [place]) 4. Muscle spasm methocarbamol (ROBAXIN) 500 MG [...] Future - Ambulatory referral to Gastroenterology ( [place]) 4. Muscle spasm We will try Robaxin [...] st Contact Info) Description 03/14/2024 11:45 AM LIVING MANAGER Office Visit [facility] [address] Marvin Mckeon MD Three [facility] [address] [place], [place] [phone] 03/20/2024 11:30 AM LIVING MANAGER Office Visit [facility] Family Medicine - [place] 100 [place] [phone] Yasmin Segura II, MD [address] [place] [address] Scheduled Referrals Name Type Priority Associated Diagnoses Orde r Schedule Ambulatory referral to Gastroenterology ( ) Referral Routine Right upper quadrant abdominal pain Ordered: 10/08/2020 documented as of this encounter Visit Diagnoses Diagnosis Primary hypertension- Primary Unspecified essential hypertension Type 2 diabetes mellitus with diabetic neuropathic arthropathy, with long-term current use of insulin ([facility]) Right upper quadrant abdominal pain Abdominal pain, right upper quadrant Muscle spasm Spasm of muscle 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
--- OUTSIDE RECORDS SUMMARY | 2024-03-03 01:29 | XMS_ITS | Encounter Summary ---
Author Organization [facility] Address [address] [place] [address]. [place], [place] [address] [place] [address] Care Team Providers Care Dessert Cup Machine Feeder Name Role Phone Jarred Rod MD Primary Care Provider Unav ailable Shira Shi PA-C Primary Care Provider +1- [phone] Jarred Rod MD Primary Care Provider Unav [...] COVID-19? No / Unsure 01/24/2021 11:10 AM OCCASIONAL CAREGIVER documented as of this encounter Functional Status [...] Author Status No 08/12/2019 3:00 AM CDT TotShleby rodriguez R N Active * Do you [...] st Contact Info) Description 03/14/2024 11:45 AM OCCASIONAL CAREGIVER [facility] [address] Marvin Mckeon MD Three [facility] [address] [place], [place] [phone] 03/20/2024 11:30 AM OCCASIONAL CAREGIVER Office Visit [facility] Family Medicine - [place] [phone] Abiodun Segura II, MD [address] [place] [address] documented as of this encounter Procedures Procedure [...] COVID-19 Confirmed 12/13/2019 12/13/2019 0 12:34 AM OCCASIONAL CAREGIVER documented as of this encounter Care Teams Dessert Cup Machine Feeder Relationship Specialty Start Date End Date Jarred Rod MD PCP - General FAMILY PRACTICE 07/21/15 09/30/20 Shira Shi PA-C [address] [place] [address] PCP - General PHYSICIAN ENERGY EFFICIENCY SPECIALIST 10/01/20 11/17/20 Jarred Rod MD [address] [place] [address] PCP - General FAMILY PRACTICE 11/18/20 12/05/20 Abiodun Segura II, MD [address] [place] [address] PCP - General FAMILY PRACTICE 12/06/20 01/16/21 Jarred Rod MD [address] [place] [address] PCP - General FAMILY PRACTICE 01/17/21 03/08/21 documented as of this encounter
--- OUTSIDE RECORDS SUMMARY | 2024-03-03 01:29 | XMS_ITS | Encounter Summary ---
Author Organization [facility] Address [address] [place] [address]. [place] [address] [place] [address] Care Team Providers Care Epic Stork Specialists Name Role Phone Shira Shi PA-C Primary Care Provider +1- [phone] Reason for Visit * Reason Onset Date Comments Results 10/28/2020 Encounter Details Date Type Department Care Team (Late st Contact Info) Description 10/28/2020 Telephone [facility] Family Medicine - [place] [address] Jarred Rod MD Results Social [...] st Contact Info) Description 03/14/2024 11:45 AM TOWER OPERATOR Office Visit [facility] [address] Marvin Mckeon MD [facility] [address] [place] [address] 03/20/2024 11:30 AM TOWER OPERATOR Office Visit [facility] Family Medicine - [place] 100 [place] [phone] Abiodun Segura II, MD 100 [place] [address] documented as of this encounter Visit Diagnoses Not on filedocumented in this encounter Additional Health Concerns Assessment Noted Time PHQ-9 Depression Total Score: 0 10/09/19 21 10:02 AM CDT documented as of this encounter Care Teams Epic Stork Specialists Relationship Specialty Start Date End Date Shira Shi PA-C [address] [place] [address] PCP - General PHYSICIAN COMMUNICABLE DISEASE SPECIALIST 10/01/20 11/17/20 documented as of this encounter
--- OUTSIDE RECORDS SUMMARY | 2024-03-03 01:29 | XMS_ITS | Encounter Summary ---
Author Organization [facility] Address [address] [place] [address]. [place] [address] [place] [address] Care Team Providers Care Upholstery Bundler Name Role Phone Jarred Rod MD [...] Contact Info) Description 03/14/2024 11:45 AM FRAME STRIPPER AND CRUSHER Office Visit [facility]-[address] [place] [address] [address] Marvin Mckeon MD [facility] [address] [place] [address] 03/20/2024 11:30 AM FRAME STRIPPER AND CRUSHER Office Visit [facility] Family Medicine - [place] 100 [place] [phone] Abiodun Segura II, MD 100 [place] [address] documented as of this encounter Visit Diagnoses Not on filedocumented in this encounter Additional Health Concerns Assessment Noted Time PHQ-9 Depression Total Score: 0 09/18/19 21 11:35 AM CDT documented as of this encounter Care Teams Upholstery Bundler Relationship Specialty Start Date End Date Jarred Rod MD PCP - General FAMILY PRACTICE 07/21/15 09/30/20 documented as of this encounter
--- OUTSIDE RECORDS SUMMARY | 2024-03-03 01:29 | XMS_ITS | Encounter Summary ---
Author Organization [facility] Address [address] [place] [address]. [place], [place] [address] [place] [address] Care Team Providers Care Counselor Nurses' Association Name Role Phone Jarred Rod MD Primary [...] st Contact Info) Description 03/14/2024 11:45 AM AOC PLANS INTELLIGENCE OFFICER CHIEF Office Visit [facility] [address] Marvin Mckeon MD [facility] [address] [place] [address] 03/20/2024 11:30 AM AOC PLANS INTELLIGENCE OFFICER CHIEF Office Visit [facility] Family Medicine - [place] 100 [place] [phone] Abiodun Segura II, MD 100 [place] [address] documented as of this encounter Visit Diagnoses Not on filedocumented in this encounter Additional Health Concerns Assessment Noted Time PHQ-9 Depression Total Score: 0 09/18/19 21 11:35 AM CDT documented as of this encounter Care Teams Counselor Nurses' Association Relationship Specialty Start Date End Date Jarred Rod MD PCP - General FAMILY PRACTICE 07/21/15 09/30/20 documented as of this encounter
--- OUTSIDE RECORDS SUMMARY | 2024-03-03 01:29 | XMS_ITS | Encounter Summary ---
Author Organization [facility] Address [address] [place] [address]. [place] [address] [place] [address] Care Team Providers Care Campground Attendant Name Role Phone Jarred Rod MD Primary Care Provider Unav ailable Reason for Visit * Reason Comments Follow Up ER follow up- Back p ain and bladder infection Encounter Details Date Type Department Care Team (Late st Contact Info) Description 09/17/2020 11:40 AM CDT Office Visit [facility] Family Medicine [facility] 100 [place] [phone] Yasmin Valenzuela II, MD 100 [place] [address] Follow Up (ER follow up- Back pain [...] included. [facility] FAMILY MEDICINE [address] [address] OFFICE FOLLOW UP NOTE Encounter Date: 09/17/2020 [...] Gatherings with Friends and Family: ??? Attends Buddhist Services: ??? Active Member of Clubs or [...] COLOR (U) LIGHT YELLOW TRANSPARENCY TURBID Specific [place] (U) 1.014 1.001 - 1.030 U PH [...] Patient originally seen at urgent care in [place]. Patient also reports vaginal discharge and right [...] with long- term current use of insulin ([facility]) 4. Primary hypertension Plan: Orders [...] with long- term current use of insulin ([facility]) After reviewing lab work from [...] Contact Info) Description 03/14/2024 11:45 AM BUSINESS EDUCATION INSTRUCTOR Office Visit [facility] [address] Marvin Mckeon MD Three [facility] [address] [place] [address] 03/20/2024 11:30 AM BUSINESS EDUCATION INSTRUCTOR Office Visit [facility] Family Medicine - [place] 100 [place] [phone] Yasmin Valenzuela II, MD 100 [place], [place] [phone] documented as of this encounter Visit Diagnoses Diagnosis Acute cystitis without hematuria- Primary Acute cystitis Candidiasis of genitalia in female Candidiasis of vulva and vagina Type 2 diabetes mellitus with diabetic neuropathic arthropathy, with long-term current use of insulin ([facility]) Primary hypertension Unspecified essential hypertension documented in this encounter Additional Health Concerns Assessment Noted Time PHQ-9 Depression Total Score: 0 09/18/19 21 11:35 AM CDT documented as of this encounter Care Teams Campground Attendant Relationship Specialty Start Date End Date Jarred Rod MD PCP - General FAMILY PRACTICE 07/21/15 09/30/20 documented as of this encounter
--- OUTSIDE RECORDS SUMMARY | 2024-03-03 01:29 | XMS_ITS | Encounter Summary ---
Author Organization [facility] Address [address] [place] [address]. [place], [place] [address] [place] [address] Care Team Providers Care Amalgamator Name Role Phone Jarred Rod MD Primary Care Provider Unav Shira Asencio PA-C Primary Care Provider +1- [phone] Encounter Details Date Type Department Care Team [...] Contact Info) Description 03/14/2024 11:45 AM GLASS MELT OPERATOR Office Visit [facility] [phone] Marvin Mckeon MD Three [facility] [address] [place], [place] [address] 03/20/2024 11:30 AM GLASS MELT OPERATOR Office Visit [facility] Family Medicine - [place] 100 [place] [phone] Abiodun Segura II, MD 100 [place], [place] [phone] documented as of this encounter Visit Diagnoses Not on filedocumented in this encounter Care Teams Amalgamator Relationship Specialty Start Date End Date Jarred Rod MD PCP - General FAMILY PRACTICE 07/21/15 09/30/20 Shira Shi PA-C [address] [place] [address] PCP - General PHYSICIAN BRAKE LINING CURER 10/01/20 11/17/20 documented as of this encounter
--- OUTSIDE RECORDS SUMMARY | 2024-03-03 01:29 | XMS_ITS | Encounter Summary ---
Author Organization [facility] Address [address] [place] [address]. [place], [place] [address] [place] [address] Care Team Providers Care Senior Business Objects Developer Name Role Phone Jarred Rod MD Primary Care Provider Unav ailable Shira Shi PA-C Primary Care Provider +1- [phone] Jarred Rod MD Primary Care Provider Unav [...] COVID-19? No / Unsure 01/24/2021 11:10 AM SHIP DESIGN TEACHER documented as of this encounter Functional [...] st Contact Info) Description 03/14/2024 11:45 AM SHIP DESIGN TEACHER Office Visit [facility] [address] Marvin Mckeon MD Three [facility] [address] [place] [address] 03/20/2024 11:30 AM SHIP DESIGN TEACHER Office Visit [facility] Family Medicine - [place] [phone] Abiodun Segura II, MD [address] [place] [address] documented as of this encounter Visit Diagnoses Not on filedocumented in this encounter Care Teams Senior Business Objects Developer Relationship Specialty Start Date End Date Jarred Rod MD PCP - General FAMILY PRACTICE 07/21/15 09/30/20 Shira Shi PA-C [address] [place] [address] PCP - General PHYSICIAN VARNISHING MACHINE OPERATOR 10/01/20 11/17/20 Jarred Rod MD [address] [place] [address] PCP - General FAMILY PRACTICE 11/18/20 12/05/20 Abiodun Segura II, MD [address] [place] [address] PCP - General FAMILY PRACTICE 12/06/20 01/16/21 Jarred Rod MD [address] [place] [address] PCP - General FAMILY PRACTICE 01/17/21 03/08/21 documented as of this encounter
--- OUTSIDE RECORDS SUMMARY | 2024-03-03 01:29 | XMS_ITS | Encounter Summary ---
Author Organization [facility] Address [address] [place] [address]. [place] [address] [place] [address] Care Team Providers Care Granite Polisher Name Role Phone Jarred Rod MD Primary Care Provider Unav ailable Reason for Referral * Imaging (Emergency) - Closed Specialty Diagnoses / Procedures Referred By Lyla chaney Referred To Contact RADIOLOGY Procedures CT ABD+PEL W IV CON ONLY Jael Bates PA [address] [place] [address] Phone: tel: fax: Referral ID Status Reason Start Date Expiration Date Visits Re quested Visits Authorized [id number] Closed 11/18/2020 12/18/2021 1 1 Reason for Visit * Reason Comments Abdominal Pain Encounter Details Date Type Department Care Team (Late st Contact Info) Description 11/18/2020 1:11 PM CDT - 11/18/2020 5:02 PM CDT Emergency [facility] [place] [address] Americo Elder MD,PHD [address] [place] [address] Abdominal Pain Discharge Disposition: Home or [...] through Care Everywhere. * Severe Abdominal Pain (Ukrainian) * Incidental Findings (Ukrainian) * Clear Liquid Diet (Ukrainian) documented in this encounter Medications at [...] COLOR (U) LIGHT YELLOW TRANSPARENCY TURBID Specific [place] (U) 1.012 1.001 - 1.030 U PH [...] IV CON ONLY Final Result by User, [id number] (11/18 1608) Examination: CT ABD+PEL W CON [...] is not hypoxic I interpreted the patient's cafeteria monitor as showing a sinus rhythm and [...] mL (100 mLs Intravenous Given 11/18/20 1550) kzbfvfpdh-omzgyucu-ecyevgznymz ([employer] [employer]UM STRENGTH) [id number] mg/30mL suspension (30 mLs Oral Given 11/18/20 1631) Clinical Impression Abdominal pain (Primary) Breast nodule Current Discharge Medication List START taking these medications Details ondansetron 4 MG disintegrating tablet Take 1 tablet (4 mg total) by mouth every 8 (eight) hours asneeded for Nausea. Qty: 20 tablet, Refills: 0 Class: Eprescribe Pharmacy: [facility] [address] [place] [address] (Ph #: [phone]) Disposition: Discharge home Patient provided with printed and verbal discharge care instructions and was instructed to return to the emergency department immediately with worsening symptoms or new worrisome symptoms. Patient was instructed to follow-up with primary care physician within 1 week for further evaluation and treatment. Diagnoses & treatment discussed with patient Patient expressed understanding and agreed. 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 having pain [...] st Contact Info) Description 03/14/2024 11:45 AM POND SCALER Office Visit [facility] [address] Marvin Mckeon MD [address] [facility] [address] [place] [address] 03/20/2024 11:30 AM POND SCALER Office Visit [facility] Family Medicine - [place] [address] [place] [phone] Abiodun Segura II, MD [address] [place], [place] [address] documented as of this encounter Procedures Procedure [...] By: Arley Gastelum MD, 11/18/2020 4:00 PM [facility] [place] CT Final Result * URINALYSIS (11/18/2020 2:16 PM CDT) SPECIMEN TYPE URINE CLEAN CATCH 11/18/2020 2:21 PM CDT [facility] COLOR (U) LIGHT YELLOW 11/18/2020 2:49 PM CDT [facility] TRANSPARENCY TURBID 11/18/2020 2:49 PM CDT [facility] SPECIFIC GRAVITY (U) 1.012 1.001 - 1.030 11/18/2020 2:49 PM CDT [facility] U PH 5.5 5.0 - 9.0 11/18/2020 2:49 PM CDT [facility] LEUKOCYTES (U) NEGATIVE NEGATIVE 11/18/2020 2:49 PM CDT [facility] NITRITES NEGATIVE NEGATIVE 11/18/2020 2:49 PM CDT [facility] PROTEIN (U) 20 <30 MG/DL 11/18/2020 2:49 PM CDT [facility] URINE GLUCOSE NORMAL NORMAL MG/DL 11/18/2020 2:49 PM CDT [facility] KETONES MG/DL (U) NEGATIVE NEGATIVE MG/DL 11/18/2020 2:49 PM CDT [facility] UROBILINOGEN NORMAL NORMAL MG/DL 11/18/2020 2:49 PM CDT [facility] BILIRUBIN (U) NEGATIVE NEGATIVE MG/DL 11/18/2020 2:49 PM CDT [facility] BLOOD (U) NEGATIVE NEGATIVE 11/18/2020 2:49 PM CDT [facility] CULTURE & SENSITIVITY INDICATED? CULTURE IS NOT INDICATED 11/18/2020 2:49 PM CDT [facility] URINE SPECIMEN OBTAINED BY CLEAN CATCH PROCEDURE / Unknown 11/18/2020 2:16 PM CDT Jael MARIE URINE ORDERABLES Final Resul t [facility] [address] [place] [address], [place] [phone] * LACTIC ACID (11/18/2020 1:50 PM CDT) LACTIC ACID VENOUS 1.1 0.4 - 2.0 MMOL/L 11/18/2020 2:42 PM CDT [facility] 11/18/2020 1:50 PM CDT [facility] Final Result Performing Organization Address City/[facility]/ZIP Co de Phone Number [facility] [address] [place] [address], [place] [phone] * LIPASE (11/18/2020 1:50 PM CDT) LIPASE 95 73 - 393 UNITS/L 11/18/2020 2:39 PM CDT [facility] 11/18/2020 1:50 PM CDT [facility] Final Result [facility] [address] [place], [place] [address], [place] [address], [place] [phone] * (ABNORMAL) COMPREHENSIVE METABOLIC PANEL (11/18/2020 1:50 PM CDT) [facility] GLUCOSE 161(H) 70 - 99 MG/DL 11/18/2020 2:39 PM CDT [facility] BUN 19(H) 7 - 18 MG/DL 11/18/2020 2:39 PM CDT [facility] CREATININE S/P/B 1.05(H) 0.55 - 1.02 MG/DL 11/18/2020 2:39 PM CDT [facility] SODIUM S/P/B 139 136 - 145 MMOL/L 11/18/2020 2:39 PM CDT [facility] POTASSIUM S/P/B 4.2 3.5 - 5.1 MMOL/L 11/18/2020 2:39 PM CDT [facility] CHLORIDE S/P/B 105 100 - 108 MMOL/L 11/18/2020 2:39 PM CDT [facility] CO2 27.8 21 - 32 MMOL/L 11/18/2020 2:39 PM CDT [facility] CALCIUM S/P/B 9.5 8.5 - 10.1 MG/DL 11/18/2020 2:39 PM CDT [facility] BILIRUBIN TOTAL S/P/B 0.5 0.2 - 1.2 MG/DL 11/18/2020 2:39 PM CDT [facility] Comment: THIS ASSAY IS NOT RECOMMENDED FOR PATIENTS UNDERGOING TREATMENT WITH ELTROMBOPAG DUE TO THE POTENTIAL FOR FALSELY ELEVATED RESULTS. TOTAL PROTEIN S/P/B 9.0(H) 6.4 - 8.2 G/DL 11/18/2020 2:39 PM CDT [facility] ALBUMIN S/P/B 3.5 3.4 - 5.0 G/DL 11/18/2020 2:39 PM CDT [facility] AST 17 15 - 37 U/L 11/18/2020 2:39 PM CDT [facility] ALT 26 14 - 55 U/L 11/18/2020 2:39 PM CDT [facility] ALKALINE PHOSPHATASE S/P/B 129 50 - 136 U/L 11/18/2020 2:39 PM CDT [facility] ANION GAP 6.2 5 - 15 MMOL/L 11/18/2020 2:39 PM CDT [facility] BUN CREATININE RATIO 18.1 6 - 26 11/18/2020 2:39 PM CDT [facility] A/G RATIO 0.6(L) 1.0 - 2.0 RATIO 11/18/2020 2:39 PM CDT [facility] EGFR NON-AFR. AMER. 62(L) >90 ML/MIN/1.7 3 M2 11/18/2020 2:39 PM CDT [facility] EGFR AFR. AMER. 72(L) >90 ML/MIN/1.7 3 M2 11/18/2020 2:39 PM CDT [facility] Comment: NOTE: eGFR is not calculated for patients <18 years of age. This is an estimated GFR (CKD EPI) and should not be used for calculating drug doses. 11/18/2020 1:50 PM CDT us [facility] Final Result [facility] [address] [place] [address], [place] [phone] * PARTIAL THROMBOPLASTIN TIME,PTT (11/18/2020 1:50 PM CDT) PTT 27.3 25.1 - 36.5 SEC 11/18/2020 2:22 PM CDT [facility] 11/18/2020 1:50 PM CDT [facility] Final Result Performing Organization Address [facility] Co de Phone Number [facility] [address] [place] [address], * PROTIME/INR, VENOUS (11/18/2020 1:50 PM CDT) PROTIME 12.9 10.2 - 12.9 SEC 11/18/2020 2:22 PM CDT [facility] INR 1.1 11/18/2020 2:22 PM CDT [facility] Comment: Recommended INR Therapeutic Goals: ??2.0-3.0 Routine Therapy ??2.5-3.5 Mechanical Prosthetic Valves (High Risk) 11/18/2020 1:50 PM CDT [facility] Final Result Performing Organization Address [facility] Co de Phone Number [facility] [address] [place] [address], * (ABNORMAL) CBC W/DIFF AUTOMATED (11/18/2020 1:50 PM CDT) WBC 13.4(H) 4.5 - 11.0 x10'3/uL 11/18/2020 2:16 PM CDT [facility] RBC 4.03(L) 4.20 - 5.40 x10'6/uL 11/18/2020 2:16 PM CDT [facility] HGB 12.5 12.0 - 16.0 G/DL 11/18/2020 2:16 PM CDT [facility] HCT 36.7(L) 38.0 - 48.0 % 11/18/2020 2:16 PM CDT [facility] MCV 91.1 81.0 - 99.0 FL 11/18/2020 2:16 PM CDT [facility] MCH 31.0 27.0 - 31.0 PG 11/18/2020 2:16 PM CDT [facility] MCHC 34.1 32.0 - 36.0 G/DL 11/18/2020 2:16 PM CDT [facility] RDW 12.5 11.5 - 14.5 % 11/18/2020 2:16 PM CDT [facility] PLT 290 130 - 400 x10'3/uL 11/18/2020 2:16 PM CDT [facility] MPV 11.1 9.3 - 12.2 FL 11/18/2020 2:16 PM CDT [facility] DIFFERENTIAL TYPE AUTOMATED DIFFERENTIAL 11/18/2020 2:16 PM CDT [facility] NEUTROPHILS % 76.5 % 11/18/2020 2:16 PM CDT [facility] LYMPHOCYTES % 19.3 % 11/18/2020 2:16 PM CDT [facility] MONOCYTES % 3.4 % 11/18/2020 2:16 PM CDT [facility] EOSINOPHILS 0.2 % 11/18/2020 2:16 PM CDT [facility] BASOPHILS 0.4 % 11/18/2020 2:16 PM CDT [facility] IMMATURE GRANS % 0.2 % 11/19/19 2:16 PM CDT [facility] ABS. NEUTROPHILS TOTAL 10.21(H) 1.80 - 7.70 x10'3/uL 11/18/2020 2:16 PM CDT [facility] ABS. LYMPHOCYTES 2.58 1.00 - 4.80 x10'3/uL 11/18/2020 2:16 PM CDT [facility] ABS. MONOCYTES 0.46 0.24 - 0.86 x10'3/uL 11/18/2020 2:16 PM CDT [facility] ABS. EOSINOPHILS 0.03(L) 0.04 - 0.36 x10'3/uL 11/18/2020 2:16 PM CDT [facility] ABS. BASOPHILS 0.06 0.01 - 0.08 x10'3/uL 11/18/2020 2:16 PM CDT [facility] ABS. IMMATURE GRANULOCYTES 0.03 0.00 - 0.49 x10'3/uL 11/18/2020 2:16 PM CDT [facility] 11/18/2020 1:50 PM CDT [facility] Final Result [facility] [address] [place] [address], [place] [phone] documented in this encounter Visit Diagnoses Diagnosis [...] Given 11/18/2020 3:50 PM CDT 100 mLs yakbisbss-fwjldugf-mbqjmtqwoa e ([employer] STRENGTH) [id number] mg/30mL suspension 30 mL, Oral, Once, 1 [...] (Given - Provid er: Yareli Baron RN) vbneebgus-owbyaenq-nlvnsdbdwsu ([employer] STRENGTH) [id number] mg/30mL suspension (COMPLETED) 30 mL, Oral, Once, [...] as of this encounter Care Teams Granite Polisher Relationship Specialty Start Date End Date Jarred Rod MD PCP - General FAMILY PRACTICE 11/18/20 12/05/20 documented as of this encounter
--- OUTSIDE RECORDS SUMMARY | 2024-03-03 01:29 | XMS_ITS | Encounter Summary ---
Author Organization [facility] Address [address] [place] [address]. [place], [place] [address] [place] [address] Care Team Providers Care Wildlife Conservation Officer Name Role Phone Jarred Rod MD Primary Care Provider Unav ailable Shira Shi PA-C Primary Care Provider +1- [phone] Jarred Rod MD Primary Care Provider Unav [...] COVID-19? No / Unsure 01/24/2021 11:10 AM CATERER'S AIDE documented as of this encounter Functional Status [...] st Contact Info) Description 03/14/2024 11:45 AM CATERER'S AIDE Office Visit [facility] [phone] Marvin Mckeon MD Three [facility] [address] [place] [address] 03/20/2024 11:30 AM CATERER'S AIDE Office Visit [facility] Family Medicine - [place] [address] [place] [phone] Abiodun Segura II, MD [address] [place] [address] documented as of this encounter Procedures Procedure [...] COVID-19 Confirmed 12/13/2019 12/13/2019 0 12:34 AM CATERER'S AIDE documented as of this encounter Care Teams Wildlife Conservation Officer Relationship Specialty Start Date End Date Jarred Rod MD PCP - General FAMILY PRACTICE 07/21/15 09/30/20 Shira Shi PA-C [address] [place] [address] PCP - General PHYSICIAN TIN POT OPERATOR 10/01/20 11/17/20 Jarred Rod MD [address] [place] [address] PCP - General FAMILY PRACTICE 11/18/20 12/05/20 Abiodun Segura II, MD [address] [place] [address] PCP - General FAMILY PRACTICE 12/06/20 01/16/21 Jarred Rod MD [address] [place] [address] HATTIE MCKENNA [address] PCP - General FAMILY PRACTICE 01/17/21 03/08/21 documented as of this encounter
--- OUTSIDE RECORDS SUMMARY | 2024-03-03 01:29 | XMS_ITS | Encounter Summary ---
Author Organization [facility] Address [address] [place] [address]. [place], [place] [address] [place] [address] Care Team Providers Care Link Trainer Mechanic Name Role Phone Shira Shi PA-C Primary Care Provider +1- [phone] Encounter Details Date Type Department Care Team [...] Contact Info) Description 03/14/2024 11:45 AM SENIOR REACTOR OPERATOR Office Visit [facility]-[address] [phone] Marvin Mckeon MD Three [facility] [address] [place], [place] [phone] 03/20/2024 11:30 AM SENIOR REACTOR OPERATOR Office Visit [facility] Family Medicine - [place] [address] [place] [phone] Abiodun Segura II, MD [address] [place] [phone] documented as of this encounter Visit Diagnoses Not on filedocumented in this encounter Additional Health Concerns Assessment Noted Time PHQ-9 Depression Total Score: 0 10/09/19 21 10:02 AM CDT documented as of this encounter Care Teams Link Trainer Mechanic Relationship Specialty Start Date End Date Shira Shi PA-C [address] [place] [address] PCP - General PHYSICIAN LENS BLOCKER 10/01/20 11/17/20 documented as of this encounter
--- OUTSIDE RECORDS SUMMARY | 2024-03-03 01:29 | XMS_ITS | Encounter Summary ---
Author Organization [facility] Address [address] [place] [address]. [place], [place] [phone] [place] [address] Care Team Providers Care Plisse Machine Operator Helper Name Role Phone Jarred Rod MD Primary Care Provider Unav ailable Encounter Details Date Type Department Care Team (Late st Contact Info) Description 09/30/2020 Abstract [facility] [address] [place] [phone] Abstract, Doc [facility] Social History Tobacco [...] st Contact Info) Description 03/14/2024 11:45 AM TILER'S ASSISTANT Office Visit [facility] [phone] Marvin Mckeon MD Three [facility] [address] [place], [place] [phone] 03/20/2024 11:30 AM TILER'S ASSISTANT Office Visit [facility] Family Medicine - [place] [address] [place] [phone] Abiodun Segura II, MD [address] [place], [place] [phone] documented as of this encounter Procedures Procedure [...] documented as of this encounter Care Teams Plisse Machine Operator Helper Relationship Specialty Start Date End Date Jarred Rod MD PCP - General FAMILY PRACTICE 07/21/15 09/30/20 documented as of this encounter
--- OUTSIDE RECORDS SUMMARY | 2024-03-03 01:29 | XMS_ITS | Encounter Summary ---
Author Organization [facility] Address [address] [place] [address]. [place], [place] [address] [place] [address] Care Team Providers Care Marketing Development Manager Name Role Phone Jarred Rod MD Primary Care Provider Unav ailable Reason for Referral * Imaging (Emergency) - Closed Specialty Diagnoses / Procedures Referred By Lyla chaney Referred To Contact RADIOLOGY Procedures CT ABD+PEL W CON Hubert Sullivan MD [address] [address] Phone: tel: fax: Referral ID Status Reason Start Date Expiration Date Visits Re quested Visits Authorized [id number] Closed 12/13/2019 01/12/2021 1 1 Reason for Visit * Reason Comments Flu Like Symptoms Abdominal Pain Encounter Details Date Type Department Care Team (Late st Contact Info) Description 12/13/2019 3:54 AM CDT - 12/13/2019 6:35 AM CDT Emergency [facility] [place] [address] Hubert Sullivan MD [address] [address] Flu Like Symptoms; Abdominal Pain Discharge Disposition: [...] Preventing the Spread of an Infectious Disease (Trinidadian) * Viral Syndrome Discharge Instructions (Trinidadian) documented in this encounter Medications at [...] nightly. 1 HYDROcodone-acetamin ophen 5-325 MG tabletIndications:Ac reno-sparks Pain < 7 Day Supply Take 1-2 tablets by mouth every 6 (six) hours as needed for Pain. Indications: Acute Pain < 7 Day Supply For Moderate Pain 10 tablet 11/05/2019 1 HYDROcodone-acetamin ophen 5-325 MG tabletIndications:Ac reno-sparks Pain < 7 Day Supply Take 1-2 [...] 6:35 AM CDT CRITICAL COVID POSITIVE RESULT RECEIVED.[facility] DEPT NOTIFIED VIA FAX documented in this [...] shows sinus tachycardia. Rate of 103. Normal VT interval, normal QTC. No signs of acute [...] 20 tablet, Refills: 0 Class: Print Pharmacy: [facility] [address] [place] [address] (Ph #: [phone]) Disposition: Discharge Follow-Up: Jarred Rod MD [address] [place] [phone] Call in 1 day HUBERT SULLIVAN [...] st Contact Info) Description 03/14/2024 11:45 AM MOVE COORDINATOR Office Visit [facility] [address] [phone] Marvin Mckeon MD [address] [facility] [address] [place] [address] 03/20/2024 11:30 AM MOVE COORDINATOR Office Visit [facility] Family Medicine - [place] [address] [place] [phone] Abiodun Segura II, MD [address] [place] [address] documented as of this encounter Procedures Procedure [...] DETECTED(A) NOT DETECTED 12/14/2019 3:06 PM CDT [facility] Comment: A Detected result is considered a [...] providers and patients using the following websites: https://www.Nvest.Génie Numérique/home/Covid-19/HCP/NAAT/fact-sheet2 https://www.Nvest.Génie Numérique/home/Covid-19/Patients/NAAT/ fact-sheet2 This test has been authorized by the FDA under an Emergency Use Authorization (EUA) for use by authorized laboratories. Due to the current public health emergency, [facility] is receiving a high volume of samples [...] about COVID-19 can be found at the [facility] website: www.DocbookMD.Génie Numérique/Covid19. Test performed at [facility] [address] ??[phone] Director: JOE FORBES DO,MPH FIRST TEST YES 12/13/2019 6:15 AM CDT [facility] EMPLOYED IN HEALTHCARE NO 12/13/2019 6:15 AM CDT [facility] SYMPTOMATIC DEFINED BY CDC YES 12/13/2019 6:15 AM CDT [facility] DATE OF SYMPTOM ONSET [id number]/13/2019 6:15 AM CDT [facility] HOSPITALIZATION STATUS NO 12/13/2019 6:15 AM CDT [facility] PATIENT IN ICU NO 12/13/2019 10:59 AM CDT [facility] RESIDENT OF CONGREGATE CARE NO 12/13/2019 6:15 AM CDT [facility] NOT 12/13/2019 6:15 AM CDT [facility] PATIENT'S RACE BLACK OR 12/13/2019 6:15 AM CDT [facility] ETHNICITY NONHISPANIC 12/13/2019 6:15 AM CDT [facility] SOURCE (QST) NASOPHARYNGEAL SWAB 12/13/2019 6:15 AM CDT [facility] NASOPHARYNGEAL SWAB / Unknown 12/13/2019 6:21 AM CDT us Hubert Sullivan MD MICROBIOLOGY - GENERA L ORDERABLES Final Result Performing Organization Address City/State/RUST Co de Phone Number [facility] [address] [place] [address], [place] [phone] [facility] [address] [address], [place] * CT ABD+PEL W CON (12/13/2019 [...] By: Hubert Rizo MD, 12/13/2019 5:13 AM Narrative 12/13/2019 5:16 [...] AM CDT) 12/13/2019 5:09 AM CDT Narrative [facility] ([facility] RAD - 12/13/2019 7:32 AM CDT ?[facility] ? [address], [place] ? Test Date: ?2019-12-13 Pat Name: ? LENA YOUNGBLOOD ?Department: ? Room: ? [id number] Gender: ? Female ? Retail Salesperson: ?? DK : ?1970 ? Requested By: HUBERT SULLIVAN Order Number: [id number] ? Reading MD: ?? Benjamin Lauren ? Measurements Intervals ?[place] ? Rate: ? 103 ?P: ?46 VT: ? 175 ?QRS: ?22 QRSD: ? 76 ? T: ?38 QT: ? 338 ? QTc: ?443 ? Interpretive Statements SINUS TACHYCARDIA NONSPECIFIC T-WAVE ABNORMALITY ABNORMAL RHYTHM ECG Compared to ECG 09/22/2019 14:59:23 No significant changes Procedure Note Benjamin Lauren MD - 12/13/[address] Test Date: 2019-12-13 Pat Name: LENA YOUNGBLOOD Department: Room: [place] [address] Gender: Female Retail Salesperson: BLAIR : 1970 Requested By: HUBERT SULLIVAN Order Number: [id number] Reading MD: Benjamin Lauren Measurements Intervals [place] Rate: 103 P: 46 VT: 175 QRS: 22 QRSD: 76 T: 38 QT: 338 QTc: 443 Interpretive Statements SINUS TACHYCARDIA NONSPECIFIC T-WAVE ABNORMALITY ABNORMAL RHYTHM ECG Compared to ECG 09/22/2019 14:59:23 No significant changes Hubert Sullivan MD ECG ORDERABLES Final Result Performing Organization Address City/State/RUST Co de Phone Number [facility] RAD * INFLUENZA A & B (12/13/2019 4:47 AM CDT) SPECIMEN TYPE QC RESULTS ARE VALID 12/13/2019 5:14 AM CDT [facility] INFLUENZA A NEGATIVE NEGATIVE 12/13/2019 5:14 AM CDT [facility] INFLUENZA B NEGATIVE NEGATIVE 12/13/2019 5:14 AM CDT [facility] Comment: Interpretation: Negative for Influenza [...] MICROBIOLOGY - GENERA L ORDERABLES Final Result [facility] [address] [place] [address], [place] [phone] * LIPASE (12/13/2019 4:42 AM CDT) LIPASE 99 73 - 393 UNITS/L 12/13/2019 5:25 AM CDT [facility] 12/13/2019 4:42 AM CDT us Hubert Sullivan MD LABORATORY Final Result Performing Organization Address [facility]/RUST Co de Phone Number [facility] [address] [place] [address], [place] [phone] * TROPONIN, QUANT (12/13/2019 4:42 AM CDT) TROPONIN I <0.015 <0.045 ng/mL. 12/13/2019 5:25 AM CDT [facility] Comment: HIGH DOSES OF BIOTIN MAY INTERFERE WITH THIS TEST RESULT. CORRELATION TO CLINICAL HISTORY AND PRESENTATION RECOMMENDED. 12/13/2019 4:42 AM CDT us Hubert Sullivan MD LABORATORY Final Result Performing Organization Address City/[facility]/ZIP Co de Phone Number [facility] [address] [place] [address], [place] [phone] * (ABNORMAL) COMPREHENSIVE METABOLIC PANEL (12/13/2019 4:42 AM CDT) [facility] GLUCOSE 240(H) 70 - 99 MG/DL 12/13/2019 5:25 AM CDT [facility] BUN 18 7 - 18 MG/DL 12/13/2019 5:25 AM CDT [facility] CREATININE S/P/B 1.03(H) 0.55 - 1.02 MG/DL 12/13/2019 5:25 AM CDT [facility] SODIUM S/P/B 134(L) 136 - 145 MMOL/L 12/13/2019 5:25 AM CDT [facility] POTASSIUM S/P/B 4.4 3.5 - 5.1 MMOL/L 12/13/2019 5:25 AM CDT [facility] CHLORIDE S/P/B 101 100 - 108 MMOL/L 12/13/2019 5:25 AM CDT [facility] CO2 24.7 21 - 32 MMOL/L 12/13/2019 5:25 AM CDT [facility] CALCIUM S/P/B 9.0 8.5 - 10.1 MG/DL 12/13/2019 5:25 AM CDT [facility] BILIRUBIN TOTAL S/P/B 0.3 0.2 - 1.2 MG/DL 12/13/2019 5:25 AM CDT [facility] Comment: THIS ASSAY IS NOT RECOMMENDED FOR PATIENTS UNDERGOING TREATMENT WITH ELTROMBOPAG DUE TO THE POTENTIAL FOR FALSELY ELEVATED RESULTS. TOTAL PROTEIN S/P/B 8.9(H) 6.4 - 8.2 G/DL 12/13/2019 5:25 AM CDT [facility] ALBUMIN S/P/B 3.3(L) 3.4 - 5.0 G/DL 12/13/2019 5:25 AM CDT [facility] AST 30 15 - 37 U/L 12/13/2019 5:25 AM CDT [facility] ALT 48 14 - 55 U/L 12/13/2019 5:25 AM CDT [facility] ALKALINE PHOSPHATASE S/P/B 130 50 - 136 U/L 12/13/2019 5:25 AM CDT [facility] ANION GAP 8.3 5 - 15 MMOL/L 12/13/2019 5:25 AM CDT [facility] BUN CREATININE RATIO 17.5 6 - 26 12/13/2019 5:25 AM CDT [facility] A/G RATIO 0.6(L) 1.0 - 2.0 RATIO 12/13/2019 5:25 AM CDT [facility] EGFR NON-AFR. AMER. 64(L) >90 ML/MIN/1.7 3 M2 12/13/2019 5:25 AM CDT [facility] EGFR AFR. AMER. 74(L) >90 ML/MIN/1.7 3 M2 12/13/2019 5:25 AM CDT [facility] Comment: NOTE: eGFR is not calculated for patients <18 years of age. This is an estimated GFR (CKD EPI) and should not be used for calculating drug doses. 12/13/2019 4:42 AM CDT us Hubert Sullivan MD LABORATORY Final Result [facility] [address] [place] [address], [place] [phone] * (ABNORMAL) CBC W/DIFF AUTOMATED (12/13/2019 4:42 AM CDT) WBC 8.3 4.5 - 11.0 x10'3/uL 12/13/2019 5:02 AM CDT [facility] RBC 3.84(L) 4.20 - 5.40 x10'6/uL 12/13/2019 5:02 AM CDT [facility] HGB 11.8(L) 12.0 - 16.0 G/DL 12/13/2019 5:02 AM CDT [facility] HCT 34.7(L) 38.0 - 48.0 % 12/13/2019 5:02 AM CDT [facility] MCV 90.4 81.0 - 99.0 FL 12/13/2019 5:02 AM CDT [facility] MCH 30.7 27.0 - 31.0 PG 12/13/2019 5:02 AM CDT [facility] MCHC 34.0 32.0 - 36.0 G/DL 12/13/2019 5:02 AM CDT [facility] RDW 12.7 11.5 - 14.5 % 12/13/2019 5:02 AM CDT [facility] PLT 224 130 - 400 x10'3/uL 12/13/2019 5:02 AM T [facility] MPV 11.3 9.3 - 12.2 FL 12/13/2019 5:02 AM CDT [facility] DIFFERENTIAL TYPE AUTOMATED DIFFERENTIAL 12/13/2019 5:02 AM CDT [facility] NEUTROPHILS % 79.3 % 12/13/2019 5:02 AM CDT [facility] LYMPHOCYTES % 14.5 % 12/13/2019 5:02 AM T [facility] MONOCYTES % 5.3 % 12/13/2019 5:02 AM T [facility] EOSINOPHILS 0.2 % 12/13/2019 5:02 AM CDT [facility] BASOPHILS 0.2 % 12/13/2019 5:02 AM CDT [facility] IMMATURE GRANS % 0.5 % 12/13/19 20 5:02 AM CDT [facility] ABS. NEUTROPHILS TOTAL 6.59 1.80 - 7.70 x10'3/uL 12/13/2019 5:02 AM CDT [facility] ABS. LYMPHOCYTES 1.21 1.00 - 4.80 x10'3/uL 12/13/2019 5:02 AM CDT [facility] ABS. MONOCYTES 0.44 0.24 - 0.86 x10'3/uL 12/13/2019 5:02 AM CDT [facility] ABS. EOSINOPHILS 0.02(L) 0.04 - 0.36 x10'3/uL 12/13/2019 5:02 AM CDT [facility] ABS. BASOPHILS 0.02 0.01 - 0.08 x10'3/uL 12/13/2019 5:02 AM CDT [facility] ABS. IMMATURE GRANULOCYTES 0.04 0.00 - 0.49 x10'3/uL 12/13/2019 5:02 AM CDT [facility] 12/13/2019 4:42 AM CDT Hubert Sullivan MD LABORATORY Final Result [facility] [address] [place] [address], [place] [phone] documented in this encounter Visit Diagnoses Diagnosis [...] as of this encounter Care Teams Marketing Development Manager Relationship Specialty Start Date End Date Jarred Rod MD PCP - General FAMILY PRACTICE 6/1/16 8/12/21 documented as of this encounter
--- OUTSIDE RECORDS SUMMARY | 2024-03-03 01:29 | XMS_ITS | Encounter Summary ---
Author Organization [facility] Address [address] [place] [address]. [place], [place] [address] [place] [address] Care Team Providers Care Website Designer Name Role Phone Jarred Rod MD Primary Care Provider Unav ailable Shira Shi PA-C Primary Care Provider [phone]- [phone] Jarred Rod MD Primary Care Provider Unav [...] COVID-19? No / Unsure 01/24/2021 11:10 AM LIMEROCK TOWER LOADER documented as of this encounter Functional [...] st Contact Info) Description 03/14/2024 11:45 AM LIMEROCK TOWER LOADER Office Visit [facility] [phone] Marvin Mckeon MD [address] [facility] [address] [place] [address] 03/20/2024 11:30 AM LIMEROCK TOWER LOADER Office Visit [facility] Family Medicine - [place] [address] [place] [phone] Abiodun Segura II, MD [address] [place] [address] documented as of this encounter Procedures Procedure [...] COVID-19 Confirmed 12/13/2019 12/13/2019 0 12:34 AM LIMEROCK TOWER LOADER documented as of this encounter Care Teams Website Designer Relationship Specialty Start Date End Date Jarred Rod MD PCP - General FAMILY PRACTICE 07/21/15 09/30/20 Shira Shi PA-C [address] [place] [address] PCP - General PHYSICIAN SIGNAL INTELLIGENCE ANALYST 10/01/20 11/17/20 Jarred Rod MD [address] [place] [address] PCP - General FAMILY PRACTICE 11/18/20 12/05/20 Abiodun Segura II, MD [address] [place] [address] PCP - General FAMILY PRACTICE 12/06/20 01/16/21 Jarred Rod MD [address] [place] [address] PCP - General FAMILY PRACTICE 01/17/21 03/08/21 documented as of this encounter
--- OUTSIDE RECORDS SUMMARY | 2024-03-03 01:29 | XMS_ITS | Encounter Summary ---
Author Organization [facility] Address [address] [place] [address]. [place], [place] [address] [place] [address] Care Team Providers Care Clinical Transplant Coordinator Name Role Phone Jarred Rod MD Primary Care Provider Unav ailable Shira Shi PA-C Primary Care Provider [phone]- [phone] Jarred Rod MD Primary Care Provider Unav [...] COVID-19? No / Unsure 01/24/2021 11:10 AM PIT CRANE OPERATOR documented as of this encounter Functional [...] Contact Info) Description 03/14/2024 11:45 AM PIT CRANE OPERATOR Office Visit [facility] [phone] Marvin Mckeon MD [address] [facility] [address] [place], [place] [address] 03/20/2024 11:30 AM PIT CRANE OPERATOR Office Visit [facility] Family Medicine - [address] [phone] Abiodun Segura II, MD [address] [place] [address] documented as of this encounter Procedures Procedure Name Priority Date/Time Associated Diagnosis Comments MAMMOGRAM GENERIC (SCAN ORDER) 02/16/2020 documented in this encounter Results * MAMMOGRAM GENERIC (02/16/2020) Anatomical Region Laterality Modality Other 02/16/2020 Narrative 02/16/2020 Ordered by an unspecified provider. us Documents Scanned SCANNING Final Result documented in this encounter Visit Diagnoses Not on filedocumented in this encounter Care Teams Clinical Transplant Coordinator Relationship Specialty Start Date End Date Jarred Rod MD PCP - General FAMILY PRACTICE 07/21/15 09/30/20 Shira Shi PA-C [address] [place] [address] PCP - General PHYSICIAN BEE PRODUCER 10/01/20 11/17/20 Jarred Rod MD [address] [place] [address] PCP - General FAMILY PRACTICE 11/18/20 12/05/20 Abiodun Segura II, MD [address] [place] [address] PCP - General FAMILY PRACTICE 12/06/20 01/16/21 Jarred Rod MD [address] [place] [address] PCP - General FAMILY PRACTICE 01/17/21 03/08/21 documented as of this encounter
--- OUTSIDE RECORDS SUMMARY | 2024-03-03 01:29 | XMS_ITS | Encounter Summary ---
Author Organization [facility] Address [address] [place] [address]. [place], [place] [address] [place] [address] Care Team Providers Care Frog Or Oyster Farmworker Name Role Phone Jarred Rod MD Primary Care Provider Unav ailable Shira Shi PA-C Primary Care Provider +1- [phone] Jarred Rod MD Primary Care Provider Unav [...] COVID-19? No / Unsure 01/24/2021 11:10 AM FIRE PREVENTION BUREAU CAPTAIN documented as of this encounter Functional Status [...] st Contact Info) Description 03/14/2024 11:45 AM FIRE PREVENTION BUREAU CAPTAIN Office Visit [facility] [phone] Marvin Mckeon MD [facility] [address] [place] [address] 03/20/2024 11:30 AM FIRE PREVENTION BUREAU CAPTAIN Office Visit [facility] Family Medicine - [place] [address] [place] [phone] Abiodun Segura II, MD [address] [place] [address] documented as of this encounter Visit Diagnoses Not on filedocumented in this encounter Additional Health Concerns Infection Onset Date Last Indicated Resolved Time COVID-19 Confirmed 12/13/2019 12/13/2019 0 12:34 AM FIRE PREVENTION BUREAU CAPTAIN documented as of this encounter Care Teams Frog Or Oyster Farmworker Relationship Specialty Start Date End Date Jarred Rod MD PCP - General FAMILY PRACTICE 07/21/15 09/30/20 Shira Shi PA-C [address] [place] [address] PCP - General PHYSICIAN DIESEL POWER MECHANIC 10/01/20 11/17/20 Jarred Rod MD [address] [place] [address] PCP - General FAMILY PRACTICE 11/18/20 12/05/20 Abiodun Segura II, MD [address] [place] [address] PCP - General FAMILY PRACTICE 12/06/20 01/16/21 Jarred Rod MD [address] [place] [address] PCP - General FAMILY PRACTICE 01/17/21 03/08/21 documented as of this encounter
--- OUTSIDE RECORDS SUMMARY | 2024-03-03 01:30 | XMS_ITS | Encounter Summary ---
Author Organization [facility] Address [address] [place] [address]. [place], [place] [id number] [place] [id number] Care Team Providers Care Filter Tender Jelly Name Role Phone Jarred Fernández MD Primary Care Provider Unav ailable Reason for Referral * Surgical (Routine) - Closed Specialty Diagnoses / Procedures Referred By Lyla chaney Referred To Contact Procedures Case request operating room: LAPAROSCOPY DIAGNOSTIC; Trachelectomy Kirit Harding MD [address] [place] [id number] Phone: tel: fax: Referral ID Status Reason Start Date Expiration Date Visits Re quested Visits Authorized [id number] Closed 08/12/2019 09/10/2020 1 1 * Imaging (Emergency) - Closed Specialty Diagnoses / Procedures Referred By Lyla chaney Referred To Contact RADIOLOGY Procedures CT ABD+PEL W CON Christ Coombs MD [address] [place] [address] Phone: tel: fax: Referral ID Status Reason Start Date Expiration Date Visits Re quested Visits Authorized [id number] Closed 08/11/2019 09/09/2020 1 1 Reason for Visit * Reason Comments Abdominal Pain * Auth/Cert Specialty Diagnoses / Procedures Referred By Lyla t Referred To Contact Diagnoses Intractable abdominal pain Abdominal pain Referral ID Status Reason Start Date Expiration Date Visits Re quested Visits Authorized [id number] 1 1 Encounter Details Date Type Department Care Team (Late st Contact Info) Description 08/11/2019 8:56 PM CDT - 08/14/2019 5:54 PM CDT Emergency [facility] Med[facility]Surg [address]rd [place] [address] Christ Coombs MD 1 [place] [address] Carline Bloom MD 1 [place] [address] [phone] (Work) [place] [address] [phone] (Work) Rosa Isela Lutz NP 1 [place], [place] [address] Erica Lomax NP 1 [place] [address] [phone] (Work) Abdominal Pain Discharge Disposition: Home or [...] monitor for toxicity Bowel regimen for constipation CAREER SERVICES ASSISTANT consult, appreciate recommendations s/p laparoscopy per HOOP MAKER HELPER MACHINE with lysis of adhesions Discharge home to self care, follow up with PCP and HOOP MAKER HELPER MACHINE in 2 weeks ?? Constipation: Titrate bowel regimen Now having BMs HTN Holding hydrochlorothiazide Continue lisinopril and metoprolol Monitor and adjust as clinically warranted Now restarted home regimen ?? T2DM Maintained on trulicity, hold for now Accu-Cheks and sliding scale insulin for tight glycemic control ?? Dyslipidemia Continue statin ?? Hyponatremia Mild Resolved Disposition: home to self care Follow up: PCP, HOOP MAKER HELPER MACHINE Time Spent on Discharge 35 minutes Signed: [...] bisacodyl, HYDROcodone-acetaminophen, HYDROcodone- acetaminophen, HYDROmorphone, magnesium hydroxide, doiyotxtf-fizbpqkh-jaxtmvsjupn, morphine, naLOXone, ondansetron, ondansetron, simethicone OBJECTIVE Vital [...] normally then can be discharged from a HOOP MAKER HELPER MACHINE standpoint. Recommend follow up in 2 weeks. [...] of breath. Plans for surgery today with HOOP MAKER HELPER MACHINE, NPO. Objective Blood pressure 139/81, pulse 75, [...] monitor for toxicity Bowel regimen for constipation CAREER SERVICES ASSISTANT consult, appreciate recommendations Plans for laparoscopy today per HOOP MAKER HELPER MACHINE Constipation: Titrate bowel regimen Now having BMs [...] Bray - 08/12/2019 5:16 PM CDT 08/12/19 1170 Clinical Encounter Type Visited With Patient;Spouse/significant other [...] no communication issues. States she lives in [place] with her , Cali and her 26 [...] here whenever needed. PCP: Jarred Fernández PHARMACY: [facility], denies financial concerns obtaining medications/supplies. INSURANCE: [employer] DCP: Plans to return home at discharge, her , Cali will be her ride home and her and daugther will be home to provide assistance as needed. NEEDS: Denies discharge concerns at this time. 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 [...] monitor for toxicity Bowel regimen for constipation CAREER SERVICES ASSISTANT consult, appreciate recommendations Constipation: Titrate bowel regimen [...] contact staff prior to exiting bed. Wearing yellowslip-clinical quality assurance specialist socks. Problem: Daily Care Goal: Daily care [...] Robotic-assisted Laparoscopic Sacrcocolpopexy with Dr. Hair in [place] in 2019. She states issues with BMs [...] Oral Daily ??? clindamycin 600 mg Intravenous Crew Director to OR ??? docusate sodium 100 mg Oral BID ??? gentamicin 120 mg Intravenous Crew Director to OR ??? heparin (porcine) 5,000 Units [...] No results for input(s): PH, PCO2, PO2, [id number], BICARBWB, BASEDEFICIT, BASEEXCESS in the [id number] hours. 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 CAREER SERVICES ASSISTANT History: OB History No data available Past [...] COLOR (U) LIGHT YELLOW TRANSPARENCY CLEAR Specific [place] (U) 1.024 1.001 - 1.030 U PH [...] stump in 05/2018 by a urogynecologist in [place] now with chronic constipation and RLQ pain, [...] Perez DO - 08/14/2019 5:54 PM CDT [facility] Op Note ?? Lena Youngblood Inpatient: 08/11/2019 - 08/13/2019 Procedure date: 08/13/2019 1230 ?? Pre-Op Diagnosis: PELVIC PAIN ?? Post-Op Diagnosis: 1. Pelvic Pain 2. Pelvic Adhesions 3. Cervical stump prolapse 4. Right paratubal cyst (right fallopian tube) ?? Procedure(s) (LRB): DIAGNOSTIC LAPAROSCOPY, LYSIS OF ADHESIONS, RIGHT SALPINGECTOMY (N/A) TRACHELECTOMY (N/A) CYSTOSCOPY Surgeon(s): Mikayla Perez DO ?? Secondary School Principal: Watch [employer] Clock Repair Clerk: RENAE Oropeza ?? Anesthesia: General ?? Findings: [...] Perez DO - 08/13/2019 4:00 PM CDT [facility] Brief Op Note Lena Youngblood Inpatient: 08/11/2019 - 08/13/2019 Procedure date: 08/13/2019 1230 Pre-Op Diagnosis: PELVIC PAIN Post-Op Diagnosis: 1. Pelvic Pain 2. Pelvic Adhesions 3. Cervical stump prolapse 4. Right paratubal cyst (right fallopian tube) Procedure(s) (LRB): DIAGNOSTIC LAPAROSCOPY, LYSIS OF ADHESIONS, RIGHT SALPINGECTOMY (N/A) TRACHELECTOMY (N/A) CYSTOSCOPY Surgeon(s): Mikayla Perez DO Secondary School Principal: Watch And Clock Repair Clerk: RENAE Oropeza Anesthesia: General Findings: Adhesions of [...] COLOR (U) LIGHT YELLOW TRANSPARENCY CLEAR Specific [place] (U) 1.024 1.001 - 1.030 U PH [...] ABD+PEL W CON Final Result by User, [id number] (08/10 2246) EXAMINATION: CT Abdomen and Pelvis [...] st Contact Info) Description 03/14/2024 11:45 AM OSTEOPATHY DOCTOR Office Visit [facility] [phone] Marvin Mckeon MD Three [facility] [address] [place], [place] [phone] 03/20/2024 11:30 AM OSTEOPATHY DOCTOR Office Visit [facility] Medical Group Family Medicine - [place] [address] [place] [phone] Abiodun Segura II, MD [address] [place] [address] documented as of this encounter Procedures Procedure [...] - 99 mg/dL 08/14/2019 1:12 PM CDT [facility] LAB ORDERS INTERFACE 08/14/2019 1:09 PM CDT [facility] ROLL CUTTING OPERATOR POCT ORDERABLES - DEVICE Fi nal Result Performing Organization Address [facility] de Phone Number [facility] LAB ORDERS INTERFACE US * (ABNORMAL) POCT glucose (08/14/2019 5:50 AM CDT) GLUCOSE POC 192(H) 70 - 99 mg/dL 08/14/2019 5:57 AM CDT [facility] LAB ORDERS INTERFACE 08/14/2019 5:50 AM CDT us [facility] ROLL CUTTING OPERATOR POCT ORDERABLES - DEVICE Fi nal Result Performing Organization Address [facility] Co de Phone Number [facility] LAB ORDERS INTERFACE US * (ABNORMAL) COMPREHENSIVE METABOLIC PANEL (08/14/2019 4:25 AM CDT) GLUCOSE 211(H) 70 - 99 MG/DL 08/14/2019 5:34 AM CDT [facility] BUN 15 7 - 18 MG/DL 08/14/2019 5:34 AM CDT [facility] CREATININE S/P/B 1.14(H) 0.55 - 1.02 MG/DL 08/14/2019 5:34 AM CDT [facility] SODIUM S/P/B 135(L) 136 - 145 MMOL/L 08/14/2019 5:34 AM CDT [facility] POTASSIUM S/P/B 4.3 3.5 - 5.1 MMOL/L 08/14/2019 5:34 AM CDT [facility] CHLORIDE S/P/B 106 100 - 108 MMOL/L 08/14/2019 5:34 AM CDT [facility] CO2 24.6 21 - 32 MMOL/L 08/14/2019 5:34 AM CDT [facility] CALCIUM S/P/B 7.7(L) 8.5 - 10.1 MG/DL 08/14/2019 5:34 AM CDT [facility] BILIRUBIN TOTAL S/P/B 0.5 0.2 - 1.2 MG/DL 08/14/2019 5:34 AM CDT [facility] Comment: THIS ASSAY IS NOT RECOMMENDED FOR PATIENTS UNDERGOING TREATMENT WITH ELTROMBOPAG DUE TO THE POTENTIAL FOR FALSELY ELEVATED RESULTS. TOTAL PROTEIN S/P/B 6.8 6.4 - 8.2 G/DL 08/14/2019 5:34 AM CDT [facility] ALBUMIN S/P/B 2.4(L) 3.4 - 5.0 G/DL 08/14/2019 5:34 AM CDT [facility] AST 13(L) 15 - 37 U/L 08/14/2019 5:34 AM CDT [facility] ALT 15 14 - 55 U/L 08/14/2019 5:34 AM T [facility] ALKALINE PHOSPHATASE S/P/B 87 50 - 136 U/L 08/14/2019 5:34 AM T [facility] ANION GAP 4.4(L) 5 - 15 MMOL/L 08/14/2019 5:34 AM CDT [facility] BUN CREATININE RATIO 13.2 6 - 26 08/14/2019 5:34 AM CDT [facility] A/G RATIO 0.5(L) 1.0 - 2.0 RATIO 08/14/2019 5:34 AM CDT [facility] EGFR NON-AFR. AMER. 57(L) >90 ML/MIN/1.7 3 M2 08/14/2019 5:34 AM CDT [facility] EGFR AFR. AMER. 66(L) >90 ML/MIN/1.7 3 M2 08/14/2019 5:34 AM CDT [facility] Comment: NOTE: eGFR is not calculated for patients <18 years of age. This is an estimated GFR (CKD EPI) and should not be used for calculating drug doses. 08/14/2019 4:25 AM CDT Rosa Isela Lutz NP LABORATORY Final Result [facility] [address] [place] [address], * (ABNORMAL) CBC W/DIFF AUTOMATED (08/14/2019 4:25 AM CDT) WBC 12.0(H) 4.5 - 11.0 x10'3/uL 08/14/2019 6:45 AM CDT [facility] RBC 3.19(L) 4.20 - 5.40 x10'6/uL 08/14/2019 6:45 AM CDT [facility] HGB 9.8(L) 12.0 - 16.0 G/DL 08/14/2019 6:45 AM CDT [facility] HCT 29.3(L) 38.0 - 48.0 % 08/14/2019 6:45 AM CDT [facility] MCV 91.8 80.0 - 94.0 FL 08/14/2019 6:45 AM CDT [facility] MCH 30.7 27.0 - 31.0 PG 08/14/2019 6:45 AM CDT [facility] MCHC 33.4 32.0 - 36.0 G/DL 08/14/2019 6:45 AM CDT [facility] RDW 12.6 11.5 - 14.5 % 08/14/2019 6:45 AM CDT [facility] PLT 258 130 - 400 x10'3/uL 08/14/2019 6:45 AM CDT [facility] MPV 11.5 9.3 - 12.2 FL 08/14/2019 6:45 AM CDT [facility] DIFFERENTIAL TYPE AUTOMATED DIFFERENTIAL 08/14/2019 6:45 AM CDT [facility] NEUTROPHILS % 80.9 % 08/14/2019 6:45 AM CDT [facility] LYMPHOCYTES % 13.9 % 08/14/2019 6:45 AM CDT [facility] MONOCYTES % 4.1 % 08/14/2019 6:45 AM CDT [facility] EOSINOPHILS 0.5 % 08/14/2019 6:45 AM CDT [facility] BASOPHILS 0.2 % 08/14/2019 6:45 AM CDT [facility] IMMATURE GRANS % 0.4 % 08/14/19 20 6:45 AM CDT [facility] ABS. NEUTROPHILS TOTAL 9.68(H) 1.80 - 7.70 x10'3/uL 08/14/2019 6:45 AM CDT [facility] ABS. LYMPHOCYTES 1.66 1.00 - 4.80 x10'3/uL 08/14/2019 6:45 AM CDT [facility] ABS. MONOCYTES 0.49 0.24 - 0.86 x10'3/uL 08/14/2019 6:45 AM CDT [facility] ABS. EOSINOPHILS 0.06 0.04 - 0.36 x10'3/uL 08/14/2019 6:45 AM CDT [facility] ABS. BASOPHILS 0.02 0.01 - 0.08 x10'3/uL 08/14/2019 6:45 AM CDT [facility] ABS. IMMATURE GRANULOCYTES 0.05 0.00 - 0.49 x10'3/uL 08/14/2019 6:45 AM CDT [facility] 08/14/2019 4:25 AM CDT us Rosa Isela Lutz NP LABORATORY Final Result Performing Organization Address City/[facility]/ZIP Co de Phone Number [facility] [address] [place] [address], [place] [phone] * (ABNORMAL) POCT glucose (08/13/2019 11:15 PM CDT) GLUCOSE POC 142(H) 70 - 99 mg/dL 08/13/2019 11:17 PM CDT [facility] LAB ORDERS INTERFACE 08/13/2019 11:1 5 PM CDT us Rosa Isela Lutz NP POCT ORDERABLES - DEVICE Katheryn l Result [facility] LAB ORDERS INTERFACE US * (ABNORMAL) POCT glucose (08/13/2019 5:56 PM CDT) GLUCOSE POC 173(H) 70 - 99 mg/dL 08/13/2019 5:57 PM CDT [facility] LAB ORDERS INTERFACE 08/13/2019 5:56 PM CDT us Rosa Isela L Lutz ROLL CUTTING OPERATOR POCT ORDERABLES - DEVICE Katheryn l Result [facility] LAB ORDERS INTERFACE US * (ABNORMAL) POCT glucose (08/13/2019 4:05 PM CDT) GLUCOSE POC 181(H) 70 - 99 mg/dL 08/13/2019 4:26 PM CDT [facility] LAB ORDERS INTERFACE 08/13/2019 4:05 PM CDT Rosa Isela Rushing Bolivar ROLL CUTTING OPERATOR POCT ORDERABLES - DEVICE Katheryn l Result Performing Organization Address City/[facility]/ZIP Co de Phone Number [facility] LAB ORDERS INTERFACE US * (ABNORMAL) POCT glucose (08/13/2019 1:25 PM CDT) GLUCOSE POC 122(H) 70 - 99 mg/dL 08/14/2019 8:38 AM CDT [facility] LAB ORDERS INTERFACE 08/13/2019 1:25 PM CDT Erica Stonernell ROLL CUTTING OPERATOR POCT ORDERABLES - DEVICE Fi nal Result Performing Organization Address [facility] Co de Phone Number [facility] LAB ORDERS INTERFACE US * (ABNORMAL) POCT glucose (08/13/2019 12:13 PM CDT) GLUCOSE POC 178(H) 70 - 99 mg/dL 08/13/2019 12:17 PM CDT [facility] LAB ORDERS INTERFACE 08/13/2019 12:1 3 PM CDT Rosa Isela Rushing Bolivar ROLL CUTTING OPERATOR POCT ORDERABLES - DEVICE Katheryn l Result Performing Organization Address City/[facility]/ZIP Co de Phone Number [facility] LAB ORDERS INTERFACE US * (ABNORMAL) POCT glucose (08/13/2019 11:16 AM CDT) GLUCOSE POC 187(H) 70 - 99 mg/dL 08/13/2019 11:21 AM CDT [facility] LAB ORDERS INTERFACE 08/13/2019 11:1 6 AM CDT Rosa Isela Lutz ROLL CUTTING OPERATOR POCT ORDERABLES - DEVICE Katheryn l Result Performing Organization Address City/[facility]/ZIP Co de Phone Number [facility] LAB ORDERS INTERFACE US * (ABNORMAL) POCT glucose (08/13/2019 4:20 AM CDT) GLUCOSE POC 192(H) 70 - 99 mg/dL 08/13/2019 4:22 AM CDT [facility] LAB ORDERS INTERFACE 08/13/2019 4:20 AM CDT Rosa Isela Lutz ROLL CUTTING OPERATOR POCT ORDERABLES - DEVICE Katheryn l Result Performing Organization Address [facility] de Phone Number [facility] LAB ORDERS INTERFACE US * (ABNORMAL) COMPREHENSIVE METABOLIC PANEL (08/13/2019 4:20 AM CDT) GLUCOSE 193(H) 70 - 99 MG/DL 08/13/2019 5:25 AM CDT [facility] BUN 16 7 - 18 MG/DL 08/13/2019 5:25 AM CDT [facility] CREATININE S/P/B 0.93 0.55 - 1.02 MG/DL 08/13/2019 5:25 AM CDT [facility] SODIUM S/P/B 137 136 - 145 MMOL/L 08/13/2019 5:25 AM CDT [facility] POTASSIUM S/P/B 4.2 3.5 - 5.1 MMOL/L 08/13/2019 5:25 AM CDT [facility] CHLORIDE S/P/B 106 100 - 108 MMOL/L 08/13/2019 5:25 AM CDT [facility] CO2 26.6 21 - 32 MMOL/L 08/13/2019 5:25 AM CDT [facility] CALCIUM S/P/B 8.3(L) 8.5 - 10.1 MG/DL 08/13/2019 5:25 AM CDT [facility] BILIRUBIN TOTAL S/P/B 0.3 0.2 - 1.2 MG/DL 08/13/2019 5:25 AM T [facility] Comment: THIS ASSAY IS NOT RECOMMENDED FOR PATIENTS UNDERGOING TREATMENT WITH ELTROMBOPAG DUE TO THE POTENTIAL FOR FALSELY ELEVATED RESULTS. TOTAL PROTEIN S/P/B 7.6 6.4 - 8.2 G/DL 08/13/2019 5:25 AM T [facility] ALBUMIN S/P/B 2.7(L) 3.4 - 5.0 G/DL 08/13/2019 5:25 AM CDT [facility] AST 15 15 - 37 U/L 08/13/2019 5:25 AM [facility] ALT 18 14 - 55 U/L 08/13/2019 5:25 AM T [facility] ALKALINE PHOSPHATASE S/P/B 109 50 - 136 U/L 08/13/2019 5:25 AM T [facility] ANION GAP 4.4(L) 5 - 15 MMOL/L 08/13/2019 5:25 AM [facility] BUN CREATININE RATIO 17.2 6 - 26 08/13/2019 5:25 AM [facility] A/G RATIO 0.6(L) 1.0 - 2.0 RATIO 08/13/2019 5:25 AM T [facility] EGFR NON-AFR. AMER. 73(L) >90 ML/MIN/1.7 3 M2 08/13/2019 5:25 AM T [facility] EGFR AFR. AMER. 84(L) >90 ML/MIN/1.7 3 M2 08/13/2019 5:25 AM [facility] Comment: NOTE: eGFR is not calculated for patients <18 years of age. This is an estimated GFR (CKD EPI) and should not be used for calculating drug doses. 08/13/2019 4:20 AM CDT Rosa Isela Lutz NP LABORATORY Final Result [facility] [address] [place] [address], [place] [phone] * (ABNORMAL) CBC W/DIFF AUTOMATED (08/13/2019 4:20 AM CDT) Pathologist [facility] WBC 9.8 4.5 - 11.0 x10'3/uL 08/13/2019 4:49 AM CDT [facility] RBC 3.61(L) 4.20 - 5.40 x10'6/uL 08/13/2019 4:49 AM CDT [facility] HGB 11.0(L) 12.0 - 16.0 G/DL 08/13/2019 4:49 AM CDT [facility] HCT 32.8(L) 38.0 - 48.0 % 08/13/2019 4:49 AM CDT [facility] MCV 90.9 81.0 - 99.0 FL 08/13/2019 4:49 AM CDT [facility] MCH 30.5 27.0 - 31.0 PG 08/13/2019 4:49 AM CDT [facility] MCHC 33.5 32.0 - 36.0 G/DL 08/13/2019 4:49 AM CDT [facility] RDW 12.4 11.5 - 14.5 % 08/13/2019 4:49 AM CDT [facility] PLT 267 130 - 400 x10'3/uL 08/13/2019 4:49 AM CDT [facility] MPV 11.2 9.3 - 12.2 FL 08/13/2019 4:49 AM CDT [facility] DIFFERENTIAL TYPE AUTOMATED DIFFERENTIAL 08/13/2019 4:49 AM CDT [facility] NEUTROPHILS % 58.6 % 08/13/2019 4:49 AM CDT [facility] LYMPHOCYTES % 34.4 % 08/13/2019 4:49 AM CDT [facility] MONOCYTES % 5.1 % 08/13/2019 4:49 AM CDT [facility] EOSINOPHILS 1.1 % 08/13/2019 4:49 AM CDT [facility] BASOPHILS 0.5 % 08/13/2019 4:49 AM CDT [facility] IMMATURE GRANS % 0.3 % 08/13/19 4:49 AM CDT [facility] ABS. NEUTROPHILS TOTAL 5.72 1.80 - 7.70 x10'3/uL 08/13/2019 4:49 AM CDT [facility] ABS. LYMPHOCYTES 3.36 1.00 - 4.80 x10'3/uL 08/13/2019 4:49 AM CDT [facility] ABS. MONOCYTES 0.50 0.24 - 0.86 x10'3/uL 08/13/2019 4:49 AM CDT [facility] ABS. EOSINOPHILS 0.11 0.04 - 0.36 x10'3/uL 08/13/2019 4:49 AM CDT [facility] ABS. BASOPHILS 0.05 0.01 - 0.08 x10'3/uL 08/13/2019 4:49 AM T [facility] ABS. IMMATURE GRANULOCYTES 0.03 0.00 - 0.49 x10'3/uL 08/13/2019 4:49 AM T [facility] 08/13/2019 4:20 AM CDT us Rosa Isela Lutz ROLL CUTTING OPERATOR LABORATORY Final Result [facility] [address] [facility] [place] [address], * Pathology (08/13/2019 12:00 AM CDT) COPATH REPORT ? [facility] ? [address] ? [place] ??[id number] ? [id number] ? Department of Pathology ? Pathology Report ? SURGICAL FINAL REPORT Patient Name: LENA YOUNGBLOOD ? : 1970 (Age: 49) ? Location: [id number] Gender: F ?Collected Date: 08/13/2019 Med Rec #: [id number] ?Date Received: 08/14/2019 Date Reported: 08/15/2019 Provider: MIKAYLA PEREZ DO ?CARLINE BLOOM MD ?SORAYA SANZ MD ?ROSA ISELA LUTZ ROLL CUTTING OPERATOR ?ERICA MONIE AGAP ?JARRED FERNÁNDEZ MD Specimen(s) A: Cervix B: Fallopian tube tissue, right Final Pathologic Diagnosis A. CERVIX; TRACHELECTOMY: -CERVIX WITH MILD HYPERKERATOSIS, DILATED NABOTHIAN CYSTS, AND FOCAL ACUTE INFLAMMATION -NEGATIVE FOR DYSPLASIA AND MALIGNANCY B. FALLOPIAN TUBE, RIGHT; SALPINGECTOMY: -FALLOPIAN TUBE WITH NO SIGNIFICANT HISTOPATHOLOGIC ABNORMALITIES Electronically Signed Out ? BESSIE LANDIN MD Pathologist [facility] Microscopic Description: Microscopic examination is performed and [...] erosion is designated to be 3:00 position. [employer] sections from each quadrant are submitted in [...] serially sectioned to reveal a pinpoint lumen. [employer] sections of the right fallopian tube, to include the fimbriated end on the largest aspect, and the three separately submitted tissue fragments, are submitted in cassette B1 and B2. [facility] Billing Fee Code(s): 95601, [id number] [facility] Tissue specimen (specimen) CERVIX UTERI STRUCTURE / Unknown 08/13/2019 3:16 PM CDT us Mikayla Perez DO PATHOLOGY/CYTOLOGY ORDERABLES Final Result [facility] [address] [place] [address], [place] [phone] * (ABNORMAL) POCT glucose (08/12/2019 11:28 PM CDT) GLUCOSE POC 268(H) 70 - 99 mg/dL 08/12/2019 11:31 PM CDT [facility] ORDERS INTERFACE 08/12/2019 11:2 8 PM CDT Rosa Isela Lutz NP POCT ORDERABLES - DEVICE Katheryn l Result [facility] LAB ORDERS INTERFACE US * (ABNORMAL) POCT glucose (08/12/2019 5:23 PM CDT) GLUCOSE POC 149(H) 70 - 99 mg/dL 08/12/2019 5:24 PM CDT [facility] LAB ORDERS INTERFACE 08/12/2019 5:23 PM CDT Rosa Isela Lutz NP POCT ORDERABLES - DEVICE Katheryn l Result Performing Organization Address [facility] Co de Phone Number [facility] LAB ORDERS INTERFACE US * (ABNORMAL) POCT glucose (08/12/2019 11:37 AM CDT) GLUCOSE POC 148(H) 70 - 99 mg/dL 08/12/2019 11:39 AM CDT [facility] ORDERS INTERFACE 08/12/2019 11:3 7 AM CDT Rosa Isela Lutz NP POCT ORDERABLES - DEVICE Katheryn l Result Performing Organization Address [facility] de Phone Number [facility] LAB ORDERS INTERFACE US * (ABNORMAL) POCT glucose (08/12/2019 6:07 AM CDT) GLUCOSE POC 160(H) 70 - 99 mg/dL 08/12/2019 6:09 AM CDT [facility] LAB ORDERS INTERFACE 08/12/2019 6:07 AM CDT us Soraya Sanz MD POCT ORDERABLES - DEVICE Final Result Performing Organization Address [facility] Co de Phone Number [facility] LAB ORDERS INTERFACE US * (ABNORMAL) URINALYSIS, AUTO, COMPLETE (08/12/2019 1:00 AM CDT) SPECIMEN TYPE URINE CLEAN CATCH 08/12/2019 12:59 AM CDT [facility] COLOR (U) LIGHT YELLOW 08/12/2019 1:08 AM CDT [facility] TRANSPARENCY CLEAR 08/12/2019 1:08 AM CDT [facility] SPECIFIC GRAVITY (U) 1.024 1.001 - 1.030 08/12/2019 1:08 AM T [facility] U PH 5.5 5.0 - 9.0 08/12/2019 1:08 AM [facility] LEUKOCYTES (U) NEGATIVE NEGATIVE 08/12/2019 1:08 AM T [facility] NITRITES NEGATIVE NEGATIVE 08/12/2019 1:08 AM [facility] PROTEIN (U) 70(H) <30 MG/DL 08/12/2019 1:08 AM T [facility] URINE GLUCOSE 200(A) NORMAL MG/DL 08/12/2019 1:08 AM [facility] KETONES MG/DL (U) NEGATIVE NEGATIVE MG/DL 08/12/2019 1:08 AM [facility] UROBILINOGEN NORMAL NORMAL MG/DL 08/12/2019 1:08 AM [facility] BILIRUBIN (U) NEGATIVE NEGATIVE MG/DL 08/12/2019 1:08 AM [facility] BLOOD (U) NEGATIVE NEGATIVE 08/12/2019 1:08 AM [facility] CULTURE & SENSITIVITY INDICATED? CULTURE IS NOT INDICATED 08/12/2019 1:08 AM [facility] MUCUS RARE /LPF 08/12/2019 1:08 AM T [facility] WBC/HPF 1 <6 /HPF 08/12/2019 1:08 AM T [facility] RBC/HPF 1 <6 /HPF 08/12/2019 1:08 AM [facility] BACTERIA (U) RARE(A) NONE /HPF 08/12/2019 1:08 AM T [facility] SQUAMOUS EPITHELIALS RARE /HPF 08/12/2019 1:08 AM CDT [facility] URINE SPECIMEN OBTAINED BY CLEAN CATCH PROCEDURE / Unknown 08/12/2019 1:00 AM CDT Christ Coombs MD URINE ORDERABLES Final Result [facility] [address] [place] [address], * CT ABD+PEL W CON (08/11/2019 10:29 [...] SPEC DESCRIPTION BLOOD 08/11/19 10:34 PM CDT [facility] SPECIAL REQUESTS LAC 08/11/19 10:34 PM CDT [facility] CULTURE RESULT NO GROWTH 6 DAYS 08/17/2019 11:24 AM CDT [facility] BLOOD SPECIMEN OBTAINED FOR BLOOD CULTURE / Unknown 08/11/2019 10:27 PM CDT 08/11/2019 10:34 PM CDT us Christ Coombs MD MICROBIOLOGY - GENERAL ORDERABL ES Final Result [facility] [address] [place] [address], [place] [phone] * CULTURE, BACTERIA, BLOOD (08/11/2019 10:27 PM CDT) SPEC DESCRIPTION BLOOD 08/11/19 10:34 PM CDT [facility] SPECIAL REQUESTS HAND,RIGHT 08/11/19 10:34 PM CDT [facility] CULTURE RESULT NO GROWTH 6 DAYS 08/17/2019 11:24 AM CDT [facility] BLOOD SPECIMEN OBTAINED FOR BLOOD CULTURE / Unknown 08/11/2019 10:27 PM CDT 08/11/2019 10:34 PM CDT Christ Coombs MD MICROBIOLOGY - GENERAL ORDERABL ES Final Result Performing Organization Address City/[facility]/ZIP Co de Phone Number [facility] [address] [place] [address], * LACTIC ACID (08/11/2019 10:27 PM CDT) LACTIC ACID VENOUS 1.2 0.4 - 2.0 MMOL/L 08/11/2019 11:01 PM CDT [facility] 08/11/2019 10:2 7 PM CDT us Christ Coombs MD LABORATORY Final Result [facility] [address] [place] [address], [place] [phone] * (ABNORMAL) MAGNESIUM (08/11/2019 9:29 PM CDT) MAGNESIUM 1.6(L) 1.8 - 2.4 MG/DL 08/11/2019 10:46 PM CDT [facility] 08/11/2019 9:29 PM CDT us Christ Coombs MD LABORATORY Final Result Performing Organization Address City/[facility]/ZIP Co de Phone Number [facility] [address] [place] [address], [place] [phone] * LIPASE (08/11/2019 9:29 PM CDT) LIPASE 113 73 - 393 UNITS/L 08/11/2019 10:03 PM CDT [facility] 08/11/2019 9:29 PM CDT us Christ Coombs MD LABORATORY Final Result Performing Organization Address [facility]/[facility] Co de Phone Number [facility] [address] [place] [address], [place] [phone] * (ABNORMAL) COMPREHENSIVE METABOLIC PANEL (08/11/2019 9:29 PM CDT) GLUCOSE 220(H) 70 - 99 MG/DL 08/11/2019 10:03 PM CDT [facility] BUN 20(H) 7 - 18 MG/DL 08/11/2019 10:03 PM CDT [facility] CREATININE S/P/B 1.09(H) 0.55 - 1.02 MG/DL 08/11/2019 10:03 PM CDT [facility] SODIUM S/P/B 134(L) 136 - 145 MMOL/L 08/11/2019 10:03 PM CDT [facility] POTASSIUM S/P/B 3.7 3.5 - 5.1 MMOL/L 08/11/2019 10:03 PM T [facility] CHLORIDE S/P/B 100 100 - 108 MMOL/L 08/11/2019 10:03 PM T [facility] CO2 30.2 21 - 32 MMOL/L 08/11/2019 10:03 PM T [facility] CALCIUM S/P/B 9.4 8.5 - 10.1 MG/DL 08/11/2019 10:03 PM T [facility] BILIRUBIN TOTAL S/P/B 0.4 0.2 - 1.2 MG/DL 08/11/2019 10:03 PM [facility] Comment: THIS ASSAY IS NOT RECOMMENDED FOR PATIENTS UNDERGOING TREATMENT WITH ELTROMBOPAG DUE TO THE POTENTIAL FOR FALSELY ELEVATED RESULTS. TOTAL PROTEIN S/P/B 9.4(H) 6.4 - 8.2 G/DL 08/11/2019 10:03 PM T [facility] ALBUMIN S/P/B 3.6 3.4 - 5.0 G/DL 08/11/2019 10:03 PM T [facility] AST 14(L) 15 - 37 U/L 08/11/2019 10:03 PM [facility] ALT 22 14 - 55 U/L 08/11/2019 10:03 PM T [facility] ALKALINE PHOSPHATASE S/P/B 127 50 - 136 U/L 08/11/2019 10:03 PM T [facility] ANION GAP 3.8(L) 5 - 15 MMOL/L 08/11/2019 10:03 PM T [facility] BUN CREATININE RATIO 18.3 6 - 26 08/11/2019 10:03 PM [facility] A/G RATIO 0.6(L) 1.0 - 2.0 RATIO 08/11/2019 10:03 PM CDT [facility] EGFR NON-AFR. AMER. 60(L) >90 ML/MIN/1.7 3 M2 08/11/2019 10:03 PM CDT [facility] EGFR AFR. AMER. 70(L) >90 ML/MIN/1.7 3 M2 08/11/2019 10:03 PM CDT [facility] Comment: NOTE: eGFR is not calculated for patients <18 years of age. This is an estimated GFR (CKD EPI) and should not be used for calculating drug doses. 08/11/2019 9:29 PM CDT Christ Coombs MD LABORATORY Final Result [facility] [address] [place] [id number], * (ABNORMAL) CBC W/DIFF AUTOMATED (08/11/2019 9:29 PM CDT) WBC 11.9(H) 4.5 - 11.0 x10'3/uL 08/11/2019 9:40 PM CDT [facility] RBC 4.07(L) 4.20 - 5.40 x10'6/uL 08/11/2019 9:40 PM CDT [facility] HGB 12.5 12.0 - 16.0 G/DL 08/11/2019 9:40 PM CDT [facility] HCT 36.6(L) 38.0 - 48.0 % 08/11/2019 9:40 PM CDT [facility] MCV 89.9 80.0 - 94.0 FL 08/11/2019 9:40 PM CDT [facility] MCH 30.7 27.0 - 31.0 PG 08/11/2019 9:40 PM CDT [facility] MCHC 34.2 32.0 - 36.0 G/DL 08/11/2019 9:40 PM CDT [facility] RDW 12.4 11.5 - 14.5 % 08/11/2019 9:40 PM CDT [facility] PLT 288 130 - 400 x10'3/uL 08/11/2019 9:40 PM CDT [facility] MPV 10.9 9.3 - 12.2 FL 08/11/2019 9:40 PM CDT [facility] DIFFERENTIAL TYPE AUTOMATED DIFFERENTIAL 08/11/2019 9:40 PM CDT [facility] NEUTROPHILS % 66.9 % 08/11/2019 9:40 PM CDT [facility] LYMPHOCYTES % 27.5 % 08/11/2019 9:40 PM CDT [facility] MONOCYTES % 3.9 % 08/11/2019 9:40 PM CDT [facility] EOSINOPHILS 0.8 % 08/11/2019 9:40 PM CDT [facility] BASOPHILS 0.5 % 08/11/2019 9:40 PM CDT [facility] IMMATURE GRANS % 0.4 % 08/11/19 20 9:40 PM CDT [facility] ABS. NEUTROPHILS TOTAL 7.97(H) 1.80 - 7.70 x10'3/uL 08/11/2019 9:40 PM CDT [facility] ABS. LYMPHOCYTES 3.27 1.00 - 4.80 x10'3/uL 08/11/2019 9:40 PM CDT [facility] ABS. MONOCYTES 0.46 0.24 - 0.86 x10'3/uL 08/11/2019 9:40 PM CDT [facility] ABS. EOSINOPHILS 0.09 0.04 - 0.36 x10'3/uL 08/11/2019 9:40 PM CDT [facility] ABS. BASOPHILS 0.06 0.01 - 0.08 x10'3/uL 08/11/2019 9:40 PM CDT [facility] ABS. IMMATURE GRANULOCYTES 0.05 0.00 - 0.49 x10'3/uL 08/11/2019 9:40 PM CDT [facility] 08/11/2019 9:29 PM CDT Christ Coombs MD LABORATORY Final Result [facility] [address] [place] [address], [place] [phone] documented in this encounter Visit Diagnoses Diagnosis [...] sources in 24 hours. Usulaay begin after FURNACE FITTER stopped., Post-Op Given 08/14/2019 4:52 PM CDT [...] on Sun08/13/19 at 1815, Until Discontinued, After FURNACE FITTER stopped, may go to q 6 hours [...] (COMPLETED) 600 mg, Intravenous, at 100 mL/hr, surgical training specialist to O.R., 1 dose, First dose on [...] (COMPLETED) 120 mg, Intravenous, at 100 mL/hr, surgical training specialist to O.R., 1 dose, First dose on [...] on Sun08/13/19 at 1815, Until Discontinued, After FURNACE FITTER stopped, may go to q 6 hours [...] Sandy Bell RN)2045 (Not Given - Provider: Ashnati Amor RN - Reason: Patient/family declined) 0845 [...] (New Bag - Provider: Sandy Bell, DEANDRE)1254 ([facility] Hold - Provider: User Epic - Reason: Unreviewed Transfer Orders)1559 ([facility] Unhold - Provider: User Epic) 0113 [...] from all sources in 24 hours. 1254 ([facility] Hold - Provider: User Epic - Reason: Unreviewed Transfer Orders)1559 ([facility] Unhold - Provider: User Epic) bisacodyl [...] sources in 24 hours. Usulaay begin after FURNACE FITTER stopped., Post-Op 09 (Given - Provider: Tomeka Collins RN)165 (Given - Provider: Benjamin Newell RN) HYDROcodone-acetaminophen (NORCO) 5-325 MG tablet 1 tablet 1 tablet, Oral, Every 4 hours PRN, Moderate pain (Scale 4 - 7), Starting on Sun08/13/19 at 1745, Until Viky 08/14/19 at 195, Maximum dose of acetaminophen is 4000 mg from all sources in 24 hours. Usually begin after FURNACE FITTER stopped., Post-Op HYDROmorphone (DILAUDID) injection 0.5 mg [...] User Epic - Reason: Unreviewed Transfer Orders)1559 ([facility] Unhold - Provider: User Epic) magnesium hydroxide (MILK OF MAGNESIA) 400 MG/5ML suspension 30 mL 30 mL, Oral, 2 times daily PRN, Constipation, Starting on Sun08/13/19 at 1745, Until Viky 08/14/19 at 195, Shake Well, Post-Op vuohksqtw-gbxarznj-xubnxb icone (MYLANTA MAXIMUM STRENGTH) 1333-3444-745 mg/30mL suspension 10 mL, Oral, Every 4 [...] (Given - Provider: Ashanti Amor RN) 1254 ([facility] Hold - Provider: User Epic - Reason: Unreviewed Transfer Orders)1559 ([facility] Unhold - Provider: User Epic) morphine [...] (COMPLETED) documented in this encounter Care Teams Filter Tender Jelly Relationship Specialty Start Date End Date Jarred Fernández MD PCP - General FAMILY PRACTICE 07/21/15 09/30/20 documented as of this encounter
--- OUTSIDE RECORDS SUMMARY | 2024-03-03 01:30 | XMS_ITS | Encounter Summary ---
Author Organization [facility] Address [address] [place] [address]. [place], [place] [address] [place] [address] Care Team Providers Care Goring Cutter Name Role Phone Jarred Rod MD Primary Care Provider Unav ailable Shira Shi PA-C Primary Care Provider +1- [phone] Jarred Rod MD Primary Care Provider Unav [...] COVID-19? No / Unsure 01/24/2021 11:10 AM HEALTH PROGRAM SPECIALIST documented as of this encounter Functional [...] Contact Info) Description 03/14/2024 11:45 AM HEALTH PROGRAM SPECIALIST Office Visit [facility] [phone] Marvin Mckeon MD [facility] [address] [place] [address] 03/20/2024 11:30 AM HEALTH PROGRAM SPECIALIST Office Visit [facility] - [place] [address] [place] [phone] Abiodun Segura II, MD [address] [place] [address] documented as of this encounter Visit Diagnoses Not on filedocumented in this encounter Additional Health Concerns Infection Onset Date Last Indicated Resolved Time COVID-19 Rule Out 09/22/2019 09/22/2019 09/24/2019 11:13 PM CDT COVID-19 Rule Out 11/02/2019 11/02/2019 11/03/2019 3:22 PM CDT COVID-19 Rule Out 12/13/2019 12/13/2019 12/14/2019 3:06 PM CDT COVID-19 Confirmed 12/13/2019 12/13/2019 0 12:34 AM HEALTH PROGRAM SPECIALIST documented as of this encounter Care Teams Goring Cutter Relationship Specialty Start Date End Date Jarred Rod MD PCP - General FAMILY PRACTICE 07/21/15 09/30/20 Shira Shi PA-C [address] [place] [address] PCP - General PHYSICIAN LOW PRESSURE FIRER 10/01/20 11/17/20 Jarred Rod MD [address] [place] [address] PCP - General FAMILY PRACTICE 11/18/20 12/05/20 Abiodun Segura II, MD [address] [place] [address] PCP - General FAMILY PRACTICE 12/06/20 01/16/21 Jarred Rod MD [address] [place] [address] PCP - General FAMILY PRACTICE 01/17/21 03/08/21 documented as of this encounter
--- OUTSIDE RECORDS SUMMARY | 2024-03-03 01:30 | XMS_ITS | Encounter Summary ---
Author Organization [facility] Address [address] [place] [address]. [place] [address] [place] [address] Care Team Providers Care Buffer Copper Name Role Phone Jarred Fernández MD Primary Care Provider Unav ailable Reason for Visit * Auth/Cert Specialty Diagnoses / Procedures Referred By Lyla chaney Referred To Contact Diagnoses POSTERIOR NECK MASS Procedures EXCISION POSTERIOR NECK MASS Referral ID Status Reason Start Date Expiration Date Visits Re quested Visits Authorized [id number] 1 1 Encounter Details Date Type Department Care Team (Latest Contact Info) Description 11/05/2019 9:18 AM CDT - 11/05/2019 4:10 PM CDT Hospital Encounter [facility] [place] [address] Edson Chappell MD [address] [place] [phone] Discharge Disposition: Home or Self Care [...] Care Everywhere. * Hydrocodone and Acetaminophen, ADULT (Marshallese) * General Anesthesia Discharge Instructions (Marshallese) * Surgical Wound Discharge Instructions (Marshallese) documented in this encounter Medications at Time [...] 1:02 PM CDT General Surgery History & Physical-[facility] Lena Youngblood 49-year-old female Date [...] BUpivacaine-EPINEPHrine PF ??? vancomycin 1,250 mg Intravenous Community Health Promoter to OR Prior to Admission medications Medication [...] file Gets together: Not on file Attends tenriism service: Not on file Active member of [...] 11/05/2019 2:11 PM CDT General Surgery Operative Report-[facility] Lena Youngblood is an 49-year-old female. Date of Operation: 11/05/2019 Preoperative diagnosis: Left posterior neck mass Postoperative diagnosis: Left posterior neck mass Procedure: Excision of left posterior neck mass Anesthesia: Monitor Anesthesia Care Assistants: Ortho Nurse: RENAE Reeves Circulating Nurse 1: Edna Weathers RN Scrub Person 1: Hubert Griffin, MANAGER TALENT MANAGEMENT Estimated blood loss: 5 cc Brief history: 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 to the patient's preoperative history and physical Operative procedure: After proper informed consent was obtained, the patient was taken to the operating room and placed in the chdyq-bzyq-gyjn position. The lesion was identified with the [...] The patient was transported stable to the [facility] o[facility] room. I discussed the intraoperative findings [...] testing 2 or 3 months ago at [place], [place] Do you see a early head start teacher? no documented in this encounter Plan of Treatment Upcoming Encounters Date Type Department Care Team (Late st Contact Info) Description 03/14/2024 11:45 AM SENIOR WEB DESIGNER Office Visit [facility] [phone] Marvin Mckeon MD [facility] [address] [place] [address] 03/20/2024 11:30 AM SENIOR WEB DESIGNER Office Visit [facility] Family Medicine - [place] [phone] Abiodun Segura II, MD [address] [place] [address] documented as of this encounter Procedures Procedure Name Priority Date/Time Associated Diagnosis Comments POCT GLUCOSE - CORREA DOCKED DEVICE Routine 11/05/2019 2:27 PM CDT EXCISION MASS/CYST/TUMOR 11/05/2019 1:26 PM CDT POSTERIOR NECK MASS Case Notes SCHED WITH JAY ON 10/20/19 [facility] PHONE ASSESS POCT GLUCOSE - CORREA DOCKED DEVICE Routine 11/05/2019 10:49 AM CDT PATHOLOGY Routine 11/05/2019 12:00 AM CDT documented in this encounter Results * POCT glucose (11/05/2019 2:27 PM CDT) GLUCOSE POC 71 70 - 99 mg/dL 11/05/2019 2:29 PM CDT [facility] 11/05/2019 2:27 PM CDT us Edson Chappell MD POCT ORDERABLES - DEVICE Final Result Performing Organization Address City/[facility]/ZIP Co de Phone Number [facility] [address] [place] [address], [place] [phone] * POCT glucose (11/05/2019 10:49 AM CDT) GLUCOSE POC 97 70 - 99 mg/dL 11/05/2019 10:58 AM CDT [facility] 11/05/2019 10:4 9 AM CDT us Edson Chappell MD POCT ORDERABLES - DEVICE Final Result [facility] [address] [place] [address], [place] [phone] * Pathology (11/05/2019 12:00 AM CDT) COPATH REPORT ? [facility] ? [address] ? [place], [place] ??[address] ? [id number] ? Department of Pathology ? Pathology Report ? SURGICAL FINAL REPORT Patient Name: LENA YOUNGBLOOD ? : 1970 (Age: 49) ? Location: [facility] Gender: F ?Collected Date: 11/05/2019 Med Rec #: [id number] ?Date Received: 11/05/2019 Date Reported: 11/06/2019 Provider: [...] material. ??No papillary excrescences are grossly identified. Birth Certificate Clerk sections are submitted, as follows: 1. ??One complete cross section (to display cystic cavity) :pb Billing Fee Code(s): 75870 [facility] Tissue specimen (specimen) (OTHER (type in comments)) 11/05/2019 1:52 PM CDT us Edson Chappell MD PATHOLOGY/CYTOLOGY ORDERA BLES Final Result [facility] [address] [place] [address], [place] [phone] documented in this encounter Visit Diagnoses Diagnosis [...] IVPB 1,250 mg, Intravenous, at 175 mL/hr, order caller to O.R., 1 dose, First dose on Sun11/05/19 at 0945, Pre-OpIndications:Neck mass New Bag 11/05/2019 12:49 PM CDT 1,250 mg 17 5 mL/hr documented in this encounter Active and Recently Administered Medications Times are shown in CDT. Scheduled Medication Order 11/03/2019 11/04/2019 11/05/2019 vancomycin (VANCOCIN) 1,250 mg in sodium chloride 0.9 % 250 mL IVPB (COMPLETED) 1,250 mg, Intravenous, at 175 mL/hr, order caller to O.R., 1 dose, First dose [...] Medication Order 11/03/2019 11/04/2019 11/05/2019 BUpivacaine-EPINEPHrine 0.5% -[id number] injection (CANCELED) As needed, Starting on Sun11/05/19 at 1350, Until Sun11/05/19 at 1418, Intra-Op 1350 (Given - Provid er: Edson Chappell MD) documented in this encounter Care Teams Buffer Copper Relationship Specialty Start Date End Date Jarred Fernández MD PCP - General FAMILY PRACTICE 07/21/15 09/30/20 documented as of this encounter
--- OUTSIDE RECORDS SUMMARY | 2024-03-03 01:30 | XMS_ITS | Encounter Summary ---
Author Organization [facility] Address [address] [place] [address]. [place], [place] [address] [place] [address] Care Team Providers Care Datastage Consultant Name Role Phone Jarred Rod MD Primary Care Provider Unav ailable Shira Shi PA-C Primary Care Provider +1- [phone] Jarred Rod MD Primary Care Provider Unav [...] COVID-19? No / Unsure 01/24/2021 11:10 AM INTERIOR HORTICULTURIST documented as of this encounter Functional Status [...] st Contact Info) Description 03/14/2024 11:45 AM INTERIOR HORTICULTURIST Office Visit [facility] [phone] Marvin Mckeon MD [facility] [address] [place], [place] [phone] 03/20/2024 11:30 AM INTERIOR HORTICULTURIST Office Visit [facility] Family Medicine - [place] [phone] Abiodun Segura II, MD [address] [place] [address] documented as of this encounter Procedures Procedure [...] COVID-19 Confirmed 12/13/2019 12/13/2019 0 12:34 AM INTERIOR HORTICULTURIST documented as of this encounter Care Teams Datastage Consultant Relationship Specialty Start Date End Date Jarred Rod MD PCP - General FAMILY PRACTICE 07/21/15 09/30/20 Shira Shi PA-C [address] [place] [address] PCP - General PHYSICIAN TITLE ABSTRACTOR 10/01/20 11/17/20 Jarred Rod MD [address] [place] [address] PCP - General FAMILY PRACTICE 11/18/20 12/05/20 Abiodun Segura II, MD [address] [place] [address] PCP - General FAMILY PRACTICE 12/06/20 01/16/21 Jarred Rod MD [address] [facility] [place] [address] PCP - General FAMILY PRACTICE 01/17/21 03/08/21 documented as of this encounter
--- OUTSIDE RECORDS SUMMARY | 2024-03-03 01:30 | XMS_ITS | Encounter Summary ---
Author Organization [facility] Address [address] [place] [address]. [place], [place] [address] [place] [address] Care Team Providers Care Endbander Name Role Phone Jarred Rod MD Primary Care Provider Unav ailable Shira Shi PA-C Primary Care Provider +1- [phone] Jarred Rod MD Primary Care Provider Unav [...] COVID-19? No / Unsure 01/24/2021 11:10 AM SERVICES CLERK documented as of this encounter Functional Status [...] st Contact Info) Description 03/14/2024 11:45 AM SERVICES CLERK Office Visit [facility] [phone] Marvin Mckeon MD Three [facility] [address] [place] [address] 03/20/2024 11:30 AM SERVICES CLERK Office Visit [facility] Family Medicine - [place] 100 [place] [phone] Abiodun Segura II, MD 100 [place], [place] [phone] documented as of this encounter Procedures Procedure [...] COVID-19 Confirmed 12/13/2019 12/13/2019 0 12:34 AM SERVICES CLERK documented as of this encounter Care Teams Endbander Relationship Specialty Start Date End Date Jarred Rod MD PCP - General FAMILY PRACTICE 07/21/15 09/30/20 Shira Shi PA-C [address] [place] [address] PCP - General PHYSICIAN REINFORCING ROD LAYER 10/01/20 11/17/20 Jarred Rod MD [address] [place] [address] PCP - General FAMILY PRACTICE 11/18/20 12/05/20 Abiodun Segura II, MD [address] [place] [address] PCP - General FAMILY PRACTICE 12/06/20 01/16/21 Jarred Rod MD [address] [place] [address] PCP - General FAMILY PRACTICE 01/17/21 03/08/21 documented as of this encounter
--- OUTSIDE RECORDS SUMMARY | 2024-03-03 01:30 | XMS_ITS | Encounter Summary ---
Author Organization [facility] Address [address] [place] [address]. [place] [address] [place] [address] Care Team Providers Care Riverboat Master Name Role Phone Jarred Rod MD Primary Care Provider Unav ailable Reason for Visit * Reason Comments Suspected Coronavirus (Covid-19) Encounter Details Date Type Department Care Team (Latest Contact Info) Description 09/22/2019 1:10 PM CDT - 09/22/2019 1:56 PM [place] [address] Keisha John, [facility] Suspected Coronavirus (Covid-19) Discharge Disposition: Transfer [...] A TRANSFER BY EMS * Keisha John CONTRACTING OFFICER-BC - 09/22/2019 1:18 PM CDTAssociated Order(s): EKG [...] errors as this chart was documented using FreshPlanet, a dictation software. JESSICA LAMBERT FNP-BC 09/22/19 1347 JESSICA Lambert 09/22/19 1347 Cosigned by Jarred Cheek MD at 09/22/2019 4:53 PM CDT documented in this encounter Plan of Treatment Upcoming Encounters Date Type Department Care Team (Late st Contact Info) Description 03/14/2024 11:45 AM COORDINATOR OF LIBRARY SERVICES Office Visit [facility] [phone] Marvin Mckeon MD Three [facility] [address] [place] [address] 03/20/2024 11:30 AM COORDINATOR OF LIBRARY SERVICES Office Visit [facility] Family Medicine - [place] 100 [place] [phone] Abiodun Segura II, MD 100 [place] [address] documented as of this encounter Procedures Procedure [...] WHOLE BLOOD 159(A) 70 - 100 mg/dL [facility] Keisha John CONTRACTING OFFICER-BC POCT ORDERABLES - DEVICE Final Result Performing Organization Address [facility] Co de Phone Number [facility] [address] [place] [address], * (ABNORMAL) POCT glucose (09/22/2019 1:35 PM CDT) GLUCOSE POC 159(H) 70 - 99 mg/dL 09/23/2019 8:[address] [facility] ORDERS INTERFACE 09/22/2019 1:35 PM CDT Keisha John CONTRACTING OFFICER-BC POCT ORDERABLES - DEVICE Final Result Performing Organization Address City/[facility] de Phone Number [facility] ORDERS INTERFACE US * ECG 12 lead (09/22/2019 1:26 PM CDT) 09/22/2019 1:[address] [facility] - 09/27/2019 3:51 AM CDT ?[facility] ? [address] [facility] ? Test Date: ?2019-09-22 Pat Name: ? LENA YOUNGBLOOD ?Department: ? Room: ? [id number] Gender: ? Female ? Expanded Duty Dental Assistant: ?? MILO : ?1970 ? Requested By: KEISHA JOHN Order Number: [id number] ? Reading : ?? Alexei Rodríguez ? Measurements Intervals ?[place] ? Rate: ? 99 ? P: ?48 AK: ? 159 ?QRS: ?24 QRSD: ? 87 ? T: ?-14 QT: ? 333 ? QTc: ?428 ? Interpretive Statements SINUS RHYTHM NONSPECIFIC T-WAVE ABNORMALITY Compared to ECG 02/15/2019 15:12:57 No significant changes Procedure Note Alexei Rodríguez MD - 09/27/[address] [facility] [address] Test Date: 2019-09-22 Pat Name: LENA YOUNGBLOOD Department: Room: [place] [address] Gender: Female Expanded Duty Dental Assistant: MILO : 1970 Requested By: KEISHA JOHN Order Number: [id number] Reading MD: Alexei Rodríguez Measurements Intervals [place] Rate: 99 P: 48 AK: 159 QRS: 24 QRSD: 87 T: -14 QT: 333 QTc: 428 Interpretive Statements SINUS RHYTHM NONSPECIFIC T-WAVE ABNORMALITY Compared to ECG 02/15/2019 15:12:57 No significant changes us Keisha KHALIL-JODI ECG ORDERABLES Final Res ult [facility] * EKG Reading (09/22/2019 1:18 PM [...] Clinical impression: non-specific ECG us Keisha [facility] Final Result documented in [...] RN) documented in this encounter Care Teams Riverboat Master Relationship Specialty Start Date End Date Jarred Rod MD PCP - General FAMILY PRACTICE 07/21/15 09/30/20 documented as of this encounter
--- OUTSIDE RECORDS SUMMARY | 2024-03-03 01:30 | XMS_ITS | Encounter Summary ---
Author Organization [facility] Address [address] [place] [address]. [place] [address] [place] [address] Care Team Providers Care Card Boxer Name Role Phone Jarred Rod MD Primary Care Provider Unav ailable Reason for Visit * Reason Onset Date Comments Consult 10/17/2019 Encounter Details Date Type Department Care Team (Late st Contact Info) Description 10/17/2019 Telephone [facility] [address] Jacy Qureshi, RMA Consult Social History Tobacco [...] st Contact Info) Description 03/14/2024 11:45 AM FLAT CLOTHIER Office Visit [facility] [phone] Marvin Mckeon MD [facility] [address] [place] [address] 03/20/2024 11:30 AM FLAT CLOTHIER Office Visit [facility] Family Medicine - [place] 100 [place] [phone] Abiodun Segura II, MD [address] [place] [address] documented as of this encounter Visit Diagnoses Not on filedocumented in this encounter Care Teams Card Boxer Relationship Specialty Start Date End Date Jarred Rod MD PCP - General FAMILY PRACTICE 07/21/15 09/30/20 documented as of this encounter
--- OUTSIDE RECORDS SUMMARY | 2024-03-03 01:30 | XMS_ITS | Encounter Summary ---
Author Organization [facility] Address [address] [place] [address]. [place] [address] [place] [address] Care Team Providers Care Court Collections Officer Name Role Phone Jarred Rod MD Primary Care Provider Unav ailable Reason for Visit * Auth/Cert Specialty Diagnoses / Procedures Referred By Lyla t Referred To Contact Diagnoses Intractable abdominal pain Abdominal pain Referral ID Status Reason Start Date Expiration Date Visits Re quested Visits Authorized [id number] 1 1 Encounter Details Date Type Department Care Team (Late st Contact Info) Description 08/13/2019 12:47 PM CDT Anesthesia Event [facility] [place] [place] [address] Shonda Rivas, DO [address] [facility] [address] [place] [address] Tracee Buckner CRNA Anesthesia Record Procedure Summary [...] Date: 08/13/19; Removal Time: 1553; Removal Person: CHAIR PAD MAKER; Removal Reason: End of Case 08/13/19 1258 [...] No; Urologic Surgical intervention - Bladder, Prostate, RV MECHANIC procedures; 1; Hand hygiene performed, Site cleansed [...] date: Charcot foot due to diabetes mellitus ([facility]) Comment: LEFT FOOT No date: Diabetes mellitus ([facility]) No date: Diabetic neuropathy ([facility]) No date: Hypertension No date: Renal disorder [...] st Contact Info) Description 03/14/2024 11:45 AM COLLECTIONS ASSOCIATE Office Visit [facility] [phone] Marvin Mckeon MD [facility] [address] [place] [address] 03/20/2024 11:30 AM COLLECTIONS ASSOCIATE Office Visit [facility] Family Medicine - [address] [phone] Abiodun Segura II, MD [address] [place] [address] documented as of this encounter Visit Diagnoses Not on filedocumented in this encounter Administered Medications Inactive Administered Medications - up to 3 most recent administrations Medication Order MAR Action Action Date Dose Rate Site clindamycin (CLEOCIN) 600 mg in sodium chloride 0.9 % 50 mL IVPB 600 mg, Intravenous, at 100 mL/hr, scallop raker to O.R., 1 dose, First dose on [...] IVPB 120 mg, Intravenous, at 100 mL/hr, scallop raker to O.R., 1 dose, First dose on [...] mg documented in this encounter Care Teams Court Collections Officer Relationship Specialty Start Date End Date Jarred Rod MD PCP - General FAMILY PRACTICE 07/21/15 09/30/20 documented as of this encounter
--- OUTSIDE RECORDS SUMMARY | 2024-03-03 01:30 | XMS_ITS | Encounter Summary ---
Author Organization [facility] Address [address] [place] [address]. [place], [place] [address] [place] [address] Care Team Providers Care Rheumatologist Name Role Phone Jarred Rod MD Primary Care Provider Unav ailable Shira Shi PA-C Primary Care Provider +1- [phone] Jarred Rod MD Primary Care Provider Unav [...] COVID-19? No / Unsure 01/24/2021 11:10 AM FURNACE ATTENDANT documented as of this encounter Functional [...] Contact Info) Description 03/14/2024 11:45 AM FURNACE ATTENDANT Office Visit [facility] [phone] Marvin Mckeon MD Three [facility] [address] [place], [place] [phone] 03/20/2024 11:30 AM FURNACE ATTENDANT Office Visit [facility] Family Medicine - [place] [phone] Abiodun Segura II, MD [address] [place] [address] documented as of this encounter Procedures Procedure [...] COVID-19 Confirmed 12/13/2019 12/13/2019 0 12:34 AM FURNACE ATTENDANT documented as of this encounter Care Teams Rheumatologist Relationship Specialty Start Date End Date Jarred Rod MD PCP - General FAMILY PRACTICE 07/21/15 09/30/20 Shira Shi PA-C [address] [place] [address] PCP - General PHYSICIAN ENROBING MACHINE CORDER 10/01/20 11/17/20 Jarred Rod MD [address] [place] [address] PCP - General FAMILY PRACTICE 11/18/20 12/05/20 Abiodun Segura II, MD [address] [place] [address] PCP - General FAMILY PRACTICE 12/06/20 01/16/21 Jarred Rod MD [address] [place] [address] PCP - General FAMILY PRACTICE 01/17/21 03/08/21 documented as of this encounter
--- OUTSIDE RECORDS SUMMARY | 2024-03-03 01:30 | XMS_ITS | Encounter Summary ---
Author Organization [facility] Address [address] [place] [address]. [place] [address] [place] [address] Care Team Providers Care Trimming Caser Name Role Phone Jarred Rod MD Primary Care Provider Unav ailable Shira Shi PA-C Primary Care Provider +1- [phone] Jarred Rod MD Primary Care Provider Unav ailable Colton SILVEIRA MD, Abiodnu L Primary Care Provider Jarred Rod MD [...] COVID-19? No / Unsure 01/24/2021 11:10 AM COILER documented as of this encounter Functional Status [...] st Contact Info) Description 03/14/2024 11:45 AM COILER Office Visit [facility] [phone] Marvin Mckeon MD Three [facility] [address] [place] [address] 03/20/2024 11:30 AM COILER Office Visit [facility] Family Medicine - [place] 100 [place] [phone] Abiodun Segura II, MD 100 [place], [place] [phone] documented as of this encounter Procedures Procedure Name Priority Date/Time Associated Diagnosis Comments OUTSIDE LAB (SCAN ORDER) Routine 07/16/2019 documented in this encounter Results * OUTSIDE LAB (SCAN) (07/16/2019) HGB A1C 8.5 % [facility] 07/16/2019 us Documents Scanned SCANNING Final Result [facility] documented in this encounter Visit Diagnoses Not on filedocumented in this encounter Additional Health Concerns Infection Onset Date Last Indicated Resolved Time COVID-19 Rule Out 09/22/2019 09/22/2019 09/24/2019 11:13 PM CDT COVID-19 Rule Out 11/02/2019 11/02/2019 11/03/2019 3:22 PM CDT COVID-19 Rule Out 12/13/2019 12/13/2019 12/14/2019 3:06 PM CDT COVID-19 Confirmed 12/13/2019 12/13/2019 0 12:34 AM COILER documented as of this encounter Care Teams Trimming Caser Relationship Specialty Start Date End Date Jarred Rod MD PCP - General FAMILY PRACTICE 07/21/15 09/30/20 Shira Shi PA-C [address] [place] [address] PCP - General PHYSICIAN EXCHANGE MECHANIC 10/01/20 11/17/20 Jarred Rod MD [address] [place] [address] PCP - General FAMILY PRACTICE 11/18/20 12/05/20 Abiodun Segura II, MD [address] [place] [address] PCP - General FAMILY PRACTICE 12/06/20 01/16/21 Jarred Rod MD [address] [place] [address] PCP - General FAMILY PRACTICE 01/17/21 03/08/21 documented as of this encounter
--- OUTSIDE RECORDS SUMMARY | 2024-03-03 01:30 | XMS_ITS | Encounter Summary ---
Author Organization [facility] Address [address] [place] [address]. [place], [place] [address] [place] [address] Care Team Providers Care Assembler Musical Equipment Name Role Phone Jarred Rod MD Primary [...] Contact Info) Description 03/14/2024 11:45 AM TIMBER CUTTER Office Visit [facility] [phone] Marvin Mckeon MD [facility] [address] [place] [address] 03/20/2024 11:30 AM TIMBER CUTTER Office Visit [facility] Family Medicine - 100 [place] [phone] Abiodun Segura II, MD 100 [place] [address] documented as of this encounter Visit Diagnoses Not on filedocumented in this encounter Care Teams Assembler Musical Equipment Relationship Specialty Start Date End Date Jarred Rod MD PCP - General FAMILY PRACTICE 07/21/15 09/30/20 documented as of this encounter
--- OUTSIDE RECORDS SUMMARY | 2024-03-03 01:30 | XMS_ITS | Encounter Summary ---
Author Organization [facility] Address [address] [place] [address]. [place] [address] [place] [address] Care Team Providers Care Adult Care Manager Name Role Phone Jarred Rod MD Primary Care Provider Unav ailable Encounter Details Date Type Department Care Team (Late st Contact Info) Description 10/30/2019 Prep for Procedure [facility] Pre-Admission Testing ONE [place], [place] [phone] Edson Chappell MD [address] [place] [address] Social History Tobacco Use Types Packs/Day [...] st Contact Info) Description 03/14/2024 11:45 AM DEMONSTRATOR ELECTRIC GAS APPLIANCES Office Visit [facility] [phone] Marvin Mckeon MD Three [facility] [address] [place] [address] 03/20/2024 11:30 AM DEMONSTRATOR ELECTRIC GAS APPLIANCES Office Visit [facility] Family Medicine - [place] 100 [place] [phone] Abiodun Segura II, MD 100 [place], [place] [address] documented as of this encounter Results * PRE-SURGICAL/PRE-PROCEDURE CORONAVIRUS (COVID 19) (11/02/2019 9:38 AM CDT) CORONAVIRUS SARS COV 2 PCR (RESP) NOT DETECTED NOT DETECTED 11/03/2019 3:21 PM CDT [facility] Comment: A Not Detected (negative) test result [...] providers and patients using the following websites: https://www.[facility].CLARED/home/Covid-19/HCP/NAAT/fact-sheet2 https://www.[facility].CLARED/home/Covid-19/Patients/NAAT/ fact-sheet2 This test has been authorized by the FDA under an Emergency Use Authorization (EUA) for use by authorized laboratories. Due to the current public health emergency, [facility] is receiving a high volume of samples [...] about COVID-19 can be found at the [facility] website: www.[employer] [facility].CLARED/Covid19. Test performed at [facility] [address] ??[id number] Director: JOE FORBES DO,MPH FIRST TEST NO 11/02/2019 12:57 PM CDT [facility] EMPLOYED IN HEALTHCARE NO 11/02/2019 12:57 PM CDT [facility] SYMPTOMATIC DEFINED BY CDC NO 11/02/2019 12:57 PM CDT [facility] DATE OF SYMPTOM ONSET UNKNOWN 11/02/2019 1:17 PM CDT [facility] HOSPITALIZATION STATUS NO 11/02/2019 12:57 PM CDT [facility] PATIENT IN ICU NO 11/02/2019 12:57 PM CDT [facility] RESIDENT OF [facility] NO 11/02/2019 12:57 PM CDT [facility] NOT 11/02/2019 12:57 PM CDT [facility] PATIENT'S RACE BLACK OR 11/02/2019 12:57 PM CDT [facility] ETHNICITY NONHISPANIC 11/02/2019 12:57 PM CDT [facility] SOURCE (QST) NASOPHARYNGEAL SWAB 11/02/2019 12:57 PM CDT [facility] NASOPHARYNGEAL SWAB / Unknown 11/02/2019 9:38 AM CDT us Edson Chappell MD MICROBIOLOGY - GENERAL OR DERABLES Final Result [facility] [address] [place] [address], [facility] [address] [place] [address], documented in this encounter Visit Diagnoses Diagnosis Preop examination- Primary Preoperative examination, unspecified documented in this encounter Care Teams Adult Care Manager Relationship Specialty Start Date End Date Jarred Rod MD PCP - General FAMILY PRACTICE 07/21/15 09/30/20 documented as of this encounter
--- OUTSIDE RECORDS SUMMARY | 2024-03-03 01:30 | XMS_ITS | Encounter Summary ---
Author Organization [facility] Address [address] [place] [address]. [place], [place] [address] [place] [address] Care Team Providers Care Fish And Wildlife Scientific Aid Name Role Phone Jarred Rod MD Primary [...] st Contact Info) Description 03/14/2024 11:45 AM SWISS MACHINIST Office Visit [facility]-[address] [phone] Marvin Mckeon MD [facility] [address] [place] [address] 03/20/2024 11:30 AM SWISS MACHINIST Office Visit [facility] Family Medicine - 100 [place] [phone] Abiodun Segura II, MD 100 [place] [address] documented as of this encounter Visit Diagnoses Not on filedocumented in this encounter Care Teams Fish And Wildlife Scientific Aid Relationship Specialty Start Date End Date Jarred Rod MD PCP - General FAMILY PRACTICE 07/21/15 09/30/20 documented as of this encounter
--- OUTSIDE RECORDS SUMMARY | 2024-03-03 01:30 | XMS_ITS | Encounter Summary ---
Author Organization [facility] Address [address] [place] [address]. [place], [place] [address] [place] [address] Care Team Providers Care Book Critic Name Role Phone Jarred Rod MD Primary [...] st Contact Info) Description 03/14/2024 11:45 AM ADJUNCT PROFESSOR OF ENGLISH Office Visit [facility] [phone] Marvin Mckeon MD [facility] [address] [place] [address] 03/20/2024 11:30 AM ADJUNCT PROFESSOR OF ENGLISH Office Visit [facility] Family Medicine - [address] [phone] Abiodun Segura II, MD [address] [place] [address] documented as of this encounter Visit Diagnoses Not on filedocumented in this encounter Care Teams Book Critic Relationship Specialty Start Date End Date Jarred Rod MD PCP - General FAMILY PRACTICE 07/21/15 09/30/20 documented as of this encounter
--- OUTSIDE RECORDS SUMMARY | 2024-03-03 01:30 | XMS_ITS | Encounter Summary ---
Author Organization [facility] Address [address] [place] [address]. [place], [place] [phone] [place] [address] Care Team Providers Care Reaming Machine Tender Name Role Phone Jarred Rod MD [...] st Contact Info) Description 03/14/2024 11:45 AM PLATFORM ARCHITECT Office Visit [facility] [phone] Marvin Mckeon MD [facility] [address] [place] [address] 03/20/2024 11:30 AM PLATFORM ARCHITECT Office Visit [facility] Family Medicine - [address] [phone] Abiodun Segura II, MD [address] [place] [address] documented as of this encounter Visit Diagnoses Not on filedocumented in this encounter Care Teams Reaming Machine Tender Relationship Specialty Start Date End Date Jarred Rod MD PCP - General FAMILY PRACTICE 07/21/15 09/30/20 documented as of this encounter
--- OUTSIDE RECORDS SUMMARY | 2024-03-03 01:30 | XMS_ITS | Encounter Summary ---
Author Organization [facility] Address [address] [place] [address]. [place], [place] [address] [place] [address] Care Team Providers Care Research And Evaluation Manager Name Role Phone Jarred Rod MD [...] Contact Info) Description 03/14/2024 11:45 AM GROUP LEADER SEMICONDUCTOR TESTING Office Visit [facility]-[address] [phone] Marvin Mckeon MD [facility] [address] [place] [address] 03/20/2024 11:30 AM GROUP LEADER SEMICONDUCTOR TESTING Office Visit [facility] Family Medicine - [address] [phone] Abiodun Segura II, MD [address] [place] [address] documented as of this encounter Visit Diagnoses Not on filedocumented in this encounter Additional Health Concerns Infection Onset Date Last Indicated Resolved Time COVID-19 Rule Out 09/22/2019 09/22/2019 09/24/2019 11:13 PM CDT documented as of this encounter Care Teams Research And Evaluation Manager Relationship Specialty Start Date End Date Jarred Rod MD PCP - General FAMILY PRACTICE 07/21/15 09/30/20 documented as of this encounter
--- OUTSIDE RECORDS SUMMARY | 2024-03-03 01:30 | XMS_ITS | Encounter Summary ---
Author Organization [facility] Address [address] [place] [address]. [place], [place] [address] [place] [address] Care Team Providers Care Service Sprinkler Helper Name Role Phone Jarred Rod MD Primary Care Provider Unav ailable Shira Shi PA-C Primary Care Provider [phone]- [phone] Jarred Rod MD Primary Care Provider Unav [...] COVID-19? No / Unsure 01/24/2021 11:10 AM LEAD COOK documented as of this encounter Functional Status [...] Contact Info) Description 03/14/2024 11:45 AM LEAD COOK Office Visit [facility]-[address] [address] Marvin Mckeon MD [facility] [address] [place] [address] 03/20/2024 11:30 AM LEAD COOK Office Visit [facility] Family Medicine - [place] [address] [place] [phone] Abiodun Segura II, MD [address] [place] [address] documented as of this encounter Visit Diagnoses Not on filedocumented in this encounter Additional Health Concerns Infection Onset Date Last Indicated Resolved Time COVID-19 Rule Out 11/02/2019 11/02/2019 11/03/2019 3:22 PM CDT COVID-19 Rule Out 12/13/2019 12/13/2019 12/14/2019 3:06 PM CDT COVID-19 Confirmed 12/13/2019 12/13/2019 0 12:34 AM LEAD COOK documented as of this encounter Care Teams Service Sprinkler Helper Relationship Specialty Start Date End Date Jarred Rod MD PCP - General FAMILY PRACTICE 07/21/15 09/30/20 Shira Shi PA-C [address] [place] [address] PCP - General PHYSICIAN SLIPMAN 10/01/20 11/17/20 Jarred Rod MD [address] [place] [address] PCP - General FAMILY PRACTICE 11/18/20 12/05/20 Abiodun Segura II, MD [address] [place] [address] PCP - General FAMILY PRACTICE 12/06/20 01/16/21 Jarred Rod MD [address] [place] [phone] PCP - General FAMILY PRACTICE 01/17/21 03/08/21 documented as of this encounter
--- OUTSIDE RECORDS SUMMARY | 2024-03-03 01:30 | XMS_ITS | Encounter Summary ---
Author Organization [facility] Address [address] [place] [address]. [place] [address] [place] [address] Care Team Providers Care Licensing Representative Name Role Phone Jarred Rod MD Primary Care Provider Unav ailable Reason for Visit * Auth/Cert Specialty Diagnoses / Procedures Referred By Lyla chaney Referred To Contact Diagnoses POSTERIOR NECK MASS Procedures EXCISION POSTERIOR NECK MASS Referral ID Status Reason Start Date Expiration Date Visits Re quested Visits Authorized [id number] 1 1 Encounter Details Date Type Department Care Team (Late st Contact Info) Description 11/05/2019 1:29 PM CDT Anesthesia Event [facility] [place] [address] Mauricio Mccormick MD [address] [address] Viet Araujo MD [address] [facility] [address]P57 [place] [address] Anesthesia Record Procedure Summary Procedure Name Responsible Anesthesiologist Anesthesia Start Time Anesthesia Stop Time EXCISION POSTERIOR NECK MASS Mauricio Mccormick MD 11/05/19 1329 11/05/19 1424 Events Date Time Event Comment 11/05/2019 1029 1029 AN Anesthesia Prepped 1128 AN SHAPE HAND Prepped 1329 An Start Patient ID and [...] by Sofy Pagan RN 11/05/19 1559 by Sfoy Pagan RN Supraglottic Airway Placement Date: 11/05/19; Placement Time: 1128; Airway Device: Facemask; Removal Date: 12/13/19; Removal Time: 0531 11/05/19 1128 by Brianna El CRNA 12/13/19 0531 by Raine Ferraro RN Supraglottic Airway Placement Date: 11/05/19; Placement Time: 1329; Airway Device: Facemask; Placed By: SHAPE HAND; Placement Verified By: Capnography, Auscultation, Chest Rise; Removal Date: 12/13/19; Removal Time: 0531; Removal Person: SHAPE HAND; Removal Reason: End of Case 11/05/19 1329 [...] date: Diabetic neuropathy ([facility]) No date: Hypertension No date: Renal [...] st Contact Info) Description 03/14/2024 11:45 AM TYPIST Office Visit [facility]-[address] [address] Marvin Mckeon MD Three [facility] [address] [place] [address] 03/20/2024 11:30 AM TYPIST Office Visit [facility] Family Medicine - [place] [address] [place] [phone] Abiodun Segura II, MD [address] [place] [address] documented as of this encounter Visit Diagnoses [...] mg documented in this encounter Care Teams Licensing Representative Relationship Specialty Start Date End Date Jarred Rod MD PCP - General FAMILY PRACTICE 07/21/15 09/30/20 documented as of this encounter
--- OUTSIDE RECORDS SUMMARY | 2024-03-03 01:30 | XMS_ITS | Encounter Summary ---
Author Organization [facility] Address [address] [place] [address]. [place] [address] [place] [address] Care Team Providers Care Heat Treating Operator Name Role Phone Jarred Fernández MD Primary Care Provider Unav ailable Reason for Visit * Auth/Cert Specialty Diagnoses / Procedures Referred By Lyla chaney Referred To Contact Diagnoses POSTERIOR NECK MASS Procedures EXCISION POSTERIOR NECK MASS Referral ID Status Reason Start Date Expiration Date Visits Re quested Visits Authorized [id number] 1 1 Encounter Details Date Type Department Care Team (Late st Contact Info) Description 11/05/2019 1:12 PM CDT - 11/05/2019 2:26 PM CDT Surgery [facility] OR ONE [facility], [place] [phone] Edson Chappell MD [address] [place] [phone] EXCISION POSTERIOR NECK MASS Surgery Details [...] Case Notes SCHED WITH JAY ON 10/20/19 [facility] PHONE ASSESS documented in this encounter Social [...] Care Everywhere. * Hydrocodone and Acetaminophen, ADULT (Mexican) * General Anesthesia Discharge Instructions (Mexican) * Surgical Wound Discharge Instructions (Mexican) documented in this encounter Medications at Time [...] 1:02 PM CDT General Surgery History & Physical-[facility] Lena Youngblood 49-year-old female Date [...] BUpivacaine-EPINEPHrine PF ??? vancomycin 1,250 mg Intravenous Vp Business Development to OR Prior to Admission medications Medication [...] file Gets together: Not on file Attends muslim service: Not on file Active member of [...] 11/05/2019 2:11 PM CDT General Surgery Operative Report-[facility] Lena Youngblood is an 49-year-old female. Date of Operation: 11/05/2019 Preoperative diagnosis: Left posterior neck mass Postoperative diagnosis: Left posterior neck mass Procedure: Excision of left posterior neck mass Anesthesia: Monitor Anesthesia Care Assistants: Park Worker: RENAE Reeves Circulating Nurse 1: Edna Weathers RN Scrub Person 1: Hubert Griffin, ASSISTANT PROFESSOR OF SPANISH Estimated blood loss: 5 cc Brief history: 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 to the patient's preoperative history and physical Operative procedure: After proper informed consent was obtained, the patient was taken to the operating room and placed in the nyumg-ojyl-rcco position. The lesion was identified with the [...] testing 2 or 3 months ago at [place], [place] Do you see a senior business architect? no documented in this encounter Plan of Treatment Upcoming Encounters Date Type Department Care Team (Late st Contact Info) Description 03/14/2024 11:45 AM FRUIT FARMWORKER Office Visit [facility]-[address] [address] Marvin Mckeon MD Three [facility] [address] [place] [address] 03/20/2024 11:30 AM FRUIT FARMWORKER Office Visit [facility] Family Medicine - [place] [address] [place] [phone] Abiodun Segura II, MD [address] [place] [address] documented as of this encounter Procedures Procedure Name Priority Date/Time Associated Diagnosis Comments POCT GLUCOSE - CORREA DOCKED DEVICE Routine 11/05/2019 2:27 PM CDT EXCISION MASS/CYST/TUMOR 11/05/2019 1:26 PM CDT POSTERIOR NECK MASS Case Notes SCHED WITH JAY ON 10/20/19 [facility] PHONE ASSESS POCT GLUCOSE - CORREA DOCKED DEVICE Routine 11/05/2019 10:49 AM CDT PATHOLOGY Routine 11/05/2019 12:00 AM CDT documented in this encounter Results * POCT glucose (11/05/2019 2:27 PM CDT) GLUCOSE POC 71 70 - 99 mg/dL 11/05/2019 2:29 PM CDT [facility] 11/05/2019 2:27 PM CDT Edson Chappell MD POCT ORDERABLES - DEVICE Final Result [facility] [address] [place] [address], * POCT glucose (11/05/2019 10:49 AM CDT) GLUCOSE POC 97 70 - 99 mg/dL 11/05/2019 10:58 AM CDT [facility] 11/05/2019 10:4 9 AM CDT us Edson Chappell MD POCT ORDERABLES - DEVICE Final Result Performing Organization Address [facility]/State/ZIP Co de Phone Number [facility] [address] [place] [address], * Pathology (11/05/2019 12:00 AM CDT) COPATH REPORT ? [facility] ? [address] ? [place], [place] ??[address] ? [phone] ? Department of Pathology ? Pathology Report ? SURGICAL FINAL REPORT Patient Name: LENA YOUNGBLOOD ? : 1970 (Age: 49) ? Location: [facility] Gender: F ?Collected Date: 11/05/2019 Med Rec #: [id number] ?Date Received: 11/05/2019 Date Reported: 11/06/2019 Provider: [...] material. ??No papillary excrescences are grossly identified. Hooker Machine Tender sections are submitted, as follows: 1. ??One complete cross section (to display cystic cavity) :pb Billing Fee Code(s): 61089 [facility] Tissue specimen (specimen) (OTHER (type in comments)) 11/05/2019 1:52 PM CDT us Edson Chappell MD PATHOLOGY/CYTOLOGY ORDERA NAVEENS Final Result [facility] [address] [place] [address], [place] [phone] documented in this encounter Visit Diagnoses Not on filedocumented in this encounter Administered Medications Inactive Administered Medications - up to 3 most recent administrations Medication Order MAR Action Action Date Dose Rate Site BUpivacaine-EPINEPHrin e 0.5% -1:[id number] injection As needed, Starting on Sun11/05/19 at [...] Medication Order 11/03/2019 11/04/2019 11/05/2019 BUpivacaine-EPINEPHrine 0.5% -1:[id number] injection (CANCELED) As needed, Starting on Sun11/05/19 at 1350, Until Sun11/05/19 at 1418, Intra-Op 1350 (Given - Provid er: Edson Chappell MD) documented in this encounter Care Teams Heat Treating Operator Relationship Specialty Start Date End Date Jarred Fernández MD PCP - General FAMILY PRACTICE 07/21/15 09/30/20 documented as of this encounter
--- OUTSIDE RECORDS SUMMARY | 2024-03-03 01:30 | XMS_ITS | Encounter Summary ---
Author Organization [facility] Address [address] [place] [address]. [place] [address] [place] [address] Care Team Providers Care Community Outreach Advocate Name Role Phone Jarred Fenrández MD Primary Care Provider Unav ailable Reason for Visit * Reason Comments Pleuritic Chest Pain Breathing Problem Suspected Coronavirus (Covid-19) Encounter Details Date Type Department Care Team (Late st Contact Info) Description 09/22/2019 2:07 PM CDT - 09/22/2019 5:14 PM CDT Emergency [facility] [place] [address] Sisi Mancilla PA [address] [place] [address] Pleuritic Chest Pain; Breathing Problem; Suspected Coronavirus [...] the ER. COVID-19 Symptoms, Spread and Prevention: https://www.dhs.[place].gov/publications/w81111.pdf Self-Isolation for Individuals Being Evaluated for COVID-19: https://www.dhs.[place].gov/publications/r85361.pdf * Attachments The following attachments cannot be sent through Care Everywhere. * Coronavirus Disease 2019 (COVID-19) Discharge Instructions (Taiwanese) documented in this encounter [...] CYNTHIA Garsia - 09/22/2019 3:02 PM CDT [place], [place] EMERGENCY DEPARTMENT ENCOUNTER HISTORICAL INFORMATION Primary Care Doctor: JARRED FERNÁNDEZ MD Patient information was obtained primarily from the patient, nursing notes History/Exam limitations: None Provider at Bedside Date/Time Event User Comments 09/22/19 8347 Provider at Bedside Assessing Patient SISI MANCILLA [...] last week. No hx of CAD or MD. PAST MEDICAL HISTORY Past Medical History: Diagnosis [...] file Gets together: Not on file Attends buddhism service: Not on file Active member of [...] changes 106bpm Interpreted by CYNTHIA Mancilla DDX: ACS/MD, COVID, viral syndrome Pertinent Labs: No results [...] and validated. 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 for details surrounding the discharge [...] 1:47 PM Means of arrival: [facility] Comments: [id number] documented in this encounter Plan of Treatment Upcoming Encounters Date Type Department Care Team (Late st Contact Info) Description 03/14/2024 11:45 AM FIRE OBSERVER Office Visit [facility]-[address] [address] Marvin Mckeon MD [address] [facility] [address] [place] [address] 03/20/2024 11:30 AM FIRE OBSERVER Office Visit [facility] Family Medicine - [place] 100 [place] [phone] Abiodun Segura II, MD [address] [place], [place] [phone] documented as of this encounter Procedures Procedure [...] <0.015 <0.045 ng/mL. 09/22/2019 4:08 PM CDT [facility] Comment: HIGH DOSES OF BIOTIN MAY INTERFERE WITH THIS TEST RESULT. CORRELATION TO CLINICAL HISTORY AND PRESENTATION RECOMMENDED. 09/22/2019 3:18 PM CDT [facility] Final Resu lt [facility] 3 [place] [address], [place] [phone] * (ABNORMAL) COMPREHENSIVE METABOLIC PANEL (09/22/2019 3:18 PM CDT) GLUCOSE 145(H) 70 - 99 MG/DL 09/22/2019 4:08 PM CDT [facility] BUN 16 7 - 18 MG/DL 09/22/2019 4:08 PM CDT [facility] CREATININE S/P/B 1.21(H) 0.55 - 1.02 MG/DL 09/22/2019 4:08 PM CDT [facility] SODIUM S/P/B 136 136 - 145 MMOL/L 09/22/2019 4:08 PM CDT [facility] POTASSIUM S/P/B 3.9 3.5 - 5.1 MMOL/L 09/22/2019 4:08 PM CDT [facility] CHLORIDE S/P/B 103 100 - 108 MMOL/L 09/22/2019 4:08 PM CDT [facility] CO2 25.4 21 - 32 MMOL/L 09/22/2019 4:08 PM CDT [facility] CALCIUM S/P/B 9.0 8.5 - 10.1 MG/DL 09/22/2019 4:08 PM CDT [facility] BILIRUBIN TOTAL S/P/B 0.6 0.2 - 1.2 MG/DL 09/22/2019 4:08 PM T [facility] Comment: THIS ASSAY IS NOT RECOMMENDED FOR PATIENTS UNDERGOING TREATMENT WITH ELTROMBOPAG DUE TO THE POTENTIAL FOR FALSELY ELEVATED RESULTS. TOTAL PROTEIN S/P/B 9.3(H) 6.4 - 8.2 G/DL 09/22/2019 4:08 PM CDT [facility] ALBUMIN S/P/B 3.6 3.4 - 5.0 G/DL 09/22/2019 4:08 PM CDT [facility] AST 21 15 - 37 U/L 09/22/2019 4:08 PM T [facility] ALT 34 14 - 55 U/L 09/22/2019 4:08 PM T [facility] ALKALINE PHOSPHATASE S/P/B 115 50 - 136 U/L 09/22/2019 4:08 PM T [facility] ANION GAP 7.6 5 - 15 MMOL/L 09/22/2019 4:08 PM T [facility] BUN CREATININE RATIO 13.2 6 - 26 09/22/2019 4:08 PM T [facility] A/G RATIO 0.6(L) 1.0 - 2.0 RATIO 09/22/2019 4:08 PM T [facility] EGFR NON-AFR. AMER. 53(L) >90 ML/MIN/1.7 3 M2 09/22/2019 4:08 PM CDT [facility] EGFR AFR. AMER. 61(L) >90 ML/MIN/1.7 3 M2 09/22/2019 4:08 PM CDT [facility] Comment: NOTE: eGFR is not calculated for patients <18 years of age. This is an estimated GFR (CKD EPI) and should not be used for calculating drug doses. 09/22/2019 3:18 PM CDT us [facility] Final Resu lt [facility] [address] [place] [address], * (ABNORMAL) CBC W/DIFF AUTOMATED (09/22/2019 3:18 PM CDT) WBC 11.5(H) 4.5 - 11.0 x10'3/uL 09/22/2019 3:38 PM CDT [facility] RBC 3.94(L) 4.20 - 5.40 x10'6/uL 09/22/2019 3:38 PM CDT [facility] HGB 12.2 12.0 - 16.0 G/DL 09/22/2019 3:38 PM CDT [facility] HCT 35.7(L) 38.0 - 48.0 % 09/22/2019 3:38 PM CDT [facility] MCV 90.6 80.0 - 94.0 FL 09/22/2019 3:38 PM CDT [facility] MCH 31.0 27.0 - 31.0 PG 09/22/2019 3:38 PM CDT [facility] MCHC 34.2 32.0 - 36.0 G/DL 09/22/2019 3:38 PM CDT [facility] RDW 12.6 11.5 - 14.5 % 09/22/2019 3:38 PM CDT [facility] PLT 267 130 - 400 x10'3/uL 09/22/2019 3:38 PM CDT [facility] MPV 11.1 9.3 - 12.2 FL 09/22/2019 3:38 PM CDT [facility] DIFFERENTIAL TYPE AUTOMATED DIFFERENTIAL 09/22/2019 3:38 PM CDT [facility] NEUTROPHILS % 69.2 % 09/22/2019 3:38 PM CDT [facility] LYMPHOCYTES % 23.4 % 09/22/2019 3:38 PM CDT [facility] MONOCYTES % 5.3 % 09/22/2019 3:38 PM CDT [facility] EOSINOPHILS 1.5 % 09/22/2019 3:38 PM CDT [facility] BASOPHILS 0.3 % 09/22/2019 3:38 PM CDT [facility] IMMATURE GRANS % 0.3 % 09/22/19 20 3:38 PM CDT [facility] ABS. NEUTROPHILS TOTAL 7.96(H) 1.80 - 7.70 x10'3/uL 09/22/2019 3:38 PM CDT [facility] ABS. LYMPHOCYTES 2.70 1.00 - 4.80 x10'3/uL 09/22/2019 3:38 PM CDT [facility] ABS. MONOCYTES 0.61 0.24 - 0.86 x10'3/uL 09/22/2019 3:38 PM CDT [facility] ABS. EOSINOPHILS 0.17 0.04 - 0.36 x10'3/uL 09/22/2019 3:38 PM CDT [facility] ABS. BASOPHILS 0.04 0.01 - 0.08 x10'3/uL 09/22/2019 3:38 PM CDT [facility] ABS. IMMATURE GRANULOCYTES 0.04 0.00 - 0.49 x10'3/uL 09/22/2019 3:38 PM CDT [facility] 09/22/2019 3:18 PM CDT us [facility] Final Resu lt [facility] [address] [place] [address], * ECG 12 lead (09/22/2019 2:59 PM CDT) 09/22/2019 2:59 PM CDT Narrative [facility] ([facility] RAD - 09/27/2019 3:53 AM CDT ?Reform`jensen Christensen ? [address] [facility] ? Test Date: ?2019-09-22 Pat Name: ? LENA YOUNGBLOOD ?Department: ? Room: ? JOLEEN Gender: ? Female ? 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 NG : ?1970 ? Requested By: SISI MANCILLA Order Number: [id number] ? Reading : ?? Alexei Rodríguez ? Measurements Intervals ?[place] ? Rate: ? 106 ?P: ?50 [place]: ? 150 ?QRS: ?27 QRSD: ? 77 ? T: ?-33 QT: ? 315 ? QTc: ?419 ? Interpretive Statements SINUS TACHYCARDIA NONSPECIFIC T-WAVE ABNORMALITY ABNORMAL RHYTHM ECG CRITICAL ALERT ISSUED ON 09-22-2019 15:06:22 Compared to ECG 09/22/2019 13:26:42 Sinus rhythm no longer present T-wave abnormality still present Procedure Note Alexei Rodríguez MD - 09/27/[address] Test Date: 2019-09-22 Pat Name: LENA YOUNGBLOOD Department: Room: JOLEEN Gender: Female Finisher Tailor Apprentice: ALEX : 1970 Requested By: SISI MANCILLA Order Number: [id number] Reading MD: Alexei Rodríguez Measurements Intervals [place] Rate: 106 P: 50 [place]: 150 QRS: 27 QRSD: 77 T: -33 QT: 315 QTc: 419 Interpretive Statements SINUS TACHYCARDIA NONSPECIFIC T-WAVE ABNORMALITY ABNORMAL RHYTHM ECG CRITICAL ALERT ISSUED ON 09-22-2019 15:06:22 Compared to ECG 09/22/2019 13:26:42 Sinus rhythm no longer present T-wave abnormality still present us Sisi Mancilla PA ECG ORDERABLES Final Resu lt [facility] RAD * CORONAVIRUS (COVID 19) [facility] (09/22/2019 2:50 PM CDT) CORONAVIRUS SARS COV 2 PCR (RESP) NOT DETECTED NOT DETECTED 09/24/2019 11:12 PM CDT [facility] Comment: A Not Detected (negative) test [...] providers and patients using the following websites: https://www.[employer].Taboola/home/Covid-19/HCP/NAAT/fact-sheet2 https://www.[employer].Taboola/home/Covid-19/Patients/NAAT/ fact-sheet2 This test has been authorized by the FDA under an Emergency Use Authorization (EUA) for use by authorized laboratories. Due to the current public health emergency, [facility] [employer] is receiving a high volume of samples [...] about COVID-19 can be found at the [employer] website: www.[employer].Taboola/Covid19. Test performed at [facility] [address] [place], [place] ??[phone] Director: JOE FORBES DO,MPH 09/22/2019 2:50 PM CDT us [facility] - GENERAL ORD ERABLES Final Result [facility] [address] [address], documented in this encounter Visit Diagnoses Diagnosis [...] as of this encounter Care Teams Community Outreach Advocate Relationship Specialty Start Date End Date Jarred Fernández MD PCP - General FAMILY PRACTICE 07/21/15 09/30/20 documented as of this encounter
--- OUTSIDE RECORDS SUMMARY | 2024-03-03 01:30 | XMS_ITS | Encounter Summary ---
Author Organization [facility] Address [address] [place] [address]. [place], [place] [id number] [place] [id number] Care Team Providers Care Frame Nailer Name Role Phone Jarred Rod MD Primary Care Provider Unav ailable Encounter Details Date Type Department Care Team (Latest Contact Info) Description 11/02/2019 11:55 AM CDT - 11/02/2019 11:59 PM CDT Hospital Encounter [facility] Laboratory [place], [place] [id number] Edson Chappell MD [address] [place] [id number] Discharge Disposition: Home or Self Care [...] Contact Info) Description 03/14/2024 11:45 AM METAL BUMPER Office Visit [facility] [phone] Marvin Mckeon MD [facility] [address] [place] [address] 03/20/2024 11:30 AM METAL BUMPER Office Visit [facility] - [place] [address] [place] [phone] Abiodun Segura II, MD [address] [place] [address] documented as of this encounter Procedures Procedure Name Priority Date/Time Associated Diagnosis Comments CORONAVIRUS (COVID 19) STAT 11/02/2019 9:38 AM CDT Preop Examination documented in this encounter Results * PRE-SURGICAL/PRE-PROCEDURE CORONAVIRUS (COVID 19) (11/02/2019 9:38 AM CDT) CORONAVIRUS SARS COV 2 PCR (RESP) NOT DETECTED NOT DETECTED 11/03/2019 3:[address] [facility] Comment: A Not Detected (negative) test [...] providers and patients using the following websites: https://www.[employer]/home/Covid-19/HCP/NAAT/fact-sheet2 https://www.[employer]/home/Covid-19/Patients/NAAT/ fact-sheet2 This test has been authorized by the FDA under an Emergency Use Authorization (EUA) for use by authorized laboratories. Due to the current public health emergency, [facility] is receiving a high volume of samples [...] about COVID-19 can be found at the [facility] website: www.[employer]/Covid19. Test performed at [facility] [address] ??[phone] Director: JOE FORBES DO,MPH FIRST TEST NO 11/02/2019 12:57 PM CDT [facility] EMPLOYED IN HEALTHCARE NO 11/02/2019 12:57 PM CDT [facility] SYMPTOMATIC DEFINED BY CDC NO 11/02/2019 12:57 PM CDT [facility] DATE OF SYMPTOM ONSET UNKNOWN 11/02/2019 1:17 PM CDT [facility] HOSPITALIZATION STATUS NO 11/02/2019 12:57 PM CDT [facility] PATIENT IN ICU NO 11/02/2019 12:57 PM CDT [facility] RESIDENT OF [facility] NO 11/02/2019 12:57 PM CDT [facility] NOT 11/02/2019 12:57 PM CDT [facility] PATIENT'S RACE BLACK OR 11/02/2019 12:57 PM CDT [facility] ETHNICITY NONHISPANIC 11/02/2019 12:57 PM CDT [facility] SOURCE (QST) NASOPHARYNGEAL SWAB 11/02/2019 12:57 PM CDT [facility] NASOPHARYNGEAL SWAB / Unknown 11/02/2019 9:38 AM CDT us Edson Chappell MD MICROBIOLOGY - GENERAL OR DERABLES Final Result Performing Organization Address City/State/[facility] Co de Phone Number [facility] [address] [place] [address], [facility] [phone] [place] [address] documented in this encounter Visit Diagnoses Diagnosis Preop examination Preoperative examination, unspecified documented in this encounter Additional Health Concerns Infection Onset Date Last Indicated Resolved Time COVID-19 Rule Out 11/02/2019 11/02/2019 11/03/2019 3:22 PM CDT documented as of this encounter Care Teams Frame Nailer Relationship Specialty Start Date End Date Jarred Rod MD PCP - General FAMILY PRACTICE 07/21/15 09/30/20 documented as of this encounter
--- OUTSIDE RECORDS SUMMARY | 2024-03-03 01:30 | XMS_ITS | Encounter Summary ---
Author Organization [facility] Address [address] [place] [address]. [place] [address] [place] [address] Care Team Providers Care Cisco Network Engineer Name Role Phone Jarred Fernández MD Primary Care Provider Unav ailable Reason for Visit * Reason Comments Abdominal Pain * Auth/Cert Specialty Diagnoses / Procedures Referred By Lyla t Referred To Contact Diagnoses Intractable abdominal pain Abdominal pain Referral ID Status Reason Start Date Expiration Date Visits Re quested Visits Authorized [id number] 1 1 Encounter Details Date Type Department Care Team (Late st Contact Info) Description 08/13/2019 12:30 PM CDT - 08/13/2019 5:46 PM CDT Surgery [facility] [place] [address] Mikayla Perez DO [address] [place] [address] [phone] DIAGNOSTIC LAPAROSCOPY, LYSIS OF ADHESIONS, RIGHT SALPINGECTOMY [...] monitor for toxicity Bowel regimen for constipation SUPERVISOR FINE GRADING consult, appreciate recommendations s/p laparoscopy per LABORER CHEMICAL PROCESSING with lysis of adhesions Discharge home to self care, follow up with PCP and LABORER CHEMICAL PROCESSING in 2 weeks ?? Constipation: Titrate bowel regimen Now having BMs HTN Holding hydrochlorothiazide Continue lisinopril and metoprolol Monitor and adjust as clinically warranted Now restarted home regimen ?? T2DM Maintained on trulicity, hold for now Accu-Cheks and sliding scale insulin for tight glycemic control ?? Dyslipidemia Continue statin ?? Hyponatremia Mild Resolved Disposition: home to self care Follow up: PCP, LAB[facility]ER CHEM[facility] PROCESSING Time Spent on Discharge 35 minutes Signed: [...] bisacodyl, HYDROcodone-acetaminophen, HYDROcodone- acetaminophen, HYDROmorphone, magnesium hydroxide, dqevnezji-bordcucr-nfnvszyomkt, morphine, naLOXone, ondansetron, ondansetron, simethicone OBJECTIVE Vital [...] normally then can be discharged from a LABORER CHEMICAL PROCESSING standpoint. Recommend follow up in 2 weeks. [...] of breath. Plans for surgery today with LABORER CHEMICAL PROCESSING, NPO. Objective Blood pressure 139/81, pulse 75, [...] monitor for toxicity Bowel regimen for constipation SUPERVISOR FINE GRADING consult, appreciate recommendations Plans for laparoscopy today per LAB[facility]ER CHEM[facility] PROCESSING Constipation: Titrate bowel regimen Now having BMs [...] Bray - 08/12/2019 5:16 PM CDT 08/12/19 1960 Clinical Encounter Type Visited With Patient;Spouse/significant other [...] Planning Source of Information Patient;Other (Comment) (ATTENDING, BAKERY DECORATOR Freddy LUTZ) Patient Information Primary Caregiver Self [...] BED WITH , CALI, AT BEDSIDE UPON [facility] ARRIVAL. LIVING SITUATION: A & O, no communication issues. States she lives in [place] with her , Cali and her 26 [...] Farrar, denies financial concerns obtaining medications/supplies. INSURANCE: [facility] DCP: Plans to return home at discharge, her , Cali will be her ride home and her and daugther will be home to provide assistance as needed. NEEDS: Denies discharge concerns at this time. 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 [...] monitor for toxicity Bowel regimen for constipation SUPERVISOR FINE GRADING consult, appreciate recommendations Constipation: Titrate bowel regimen [...] contact staff prior to exiting bed. Wearing yellowslip-athletic training internship socks. Problem: Daily Care Goal: Daily care [...] Robotic-assisted Laparoscopic Sacrcocolpopexy with Dr. Hair in [place] in 2019. She states issues with BMs [...] Oral Daily ??? clindamycin 600 mg Intravenous Meters Superintendent to OR ??? docusate sodium 100 mg Oral BID ??? gentamicin 120 mg Intravenous Meters Superintendent to OR ??? heparin (porcine) 5,000 Units [...] file Gets together: Not on file Attends orthodoxy service: Not on file Active member of [...] file Gets together: Not on file Attends orthodoxy service: Not on file Active member of [...] No results for input(s): PH, PCO2, PO2, [id number], BICARBWB, BASEDEFICIT, BASEEXCESS in the drcv120 hours. Imagining & Other Studies Ct Abd+pel [...] pain control, antiemetics Bowel regimen for constipation SUPERVISOR FINE GRADING consult Hypertension: Holding hydrochlorothiazide Continue lisinopril and metoprolol and follow blood pressure reading IDDM: Accu-Cheks and insulin protocol Dyslipidemia: Continue statin Carline Bloom MD 08/12/2019 3:17 AM documented in this encounter Consult Notes * Kirit Harding MD - 08/12/2019 12:16 PM CDTAssociated Order(s): IP CONSULT TO DERMATOLOGY SPECIALIST Gynecology Consult Note CC: RLQ pain HPI: [...] to admission her last BM was 08/06. SUPERVISOR FINE GRADING History: OB History No data available Past [...] COLOR (U) LIGHT YELLOW TRANSPARENCY CLEAR Specific [place] (U) 1.024 1.001 - 1.030 U PH [...] stump in 05/2018 by a urogynecologist in [place] now with chronic constipation and RLQ pain, [...] - 08/14/2019 5:54 PM CDT [facility] Op Note ?? Lena Youngblood Inpatient: 08/11/2019 - 08/13/2019 Procedure date: 08/13/2019 1230 ?? Pre-Op Diagnosis: PELVIC PAIN ?? Post-Op Diagnosis: 1. Pelvic Pain 2. Pelvic Adhesions 3. Cervical stump prolapse 4. Right paratubal cyst (right fallopian tube) ?? Procedure(s) (LRB): DIAGNOSTIC LAPAROSCOPY, LYSIS OF ADHESIONS, RIGHT SALPINGECTOMY (N/A) TRACHELECTOMY (N/A) CYSTOSCOPY Surgeon(s): Mikayla Perez DO ?? Fire Boss: Toddler Lead Teacher: Kalyn L White, CUSTOMER CONTACT REPRESENTATIVE ?? Anesthesia: General ?? Findings: Adhesions of [...] - 08/13/2019 4:00 PM CDT [facility] Brief Op Note Lena Youngblood Inpatient: 08/11/2019 - 08/13/2019 Procedure date: 08/13/2019 1230 Pre-Op Diagnosis: PELVIC PAIN Post-Op Diagnosis: 1. Pelvic Pain 2. Pelvic Adhesions 3. Cervical stump prolapse 4. Right paratubal cyst (right fallopian tube) Procedure(s) (LRB): DIAGNOSTIC LAPAROSCOPY, LYSIS OF ADHESIONS, RIGHT SALPINGECTOMY (N/A) TRACHELECTOMY (N/A) CYSTOSCOPY Surgeon(s): Mikayla Perez DO Fire Boss: Toddler Lead Teacher: RENAE rOopeza Anesthesia: General Findings: Adhesions of right ovary [...] COLOR (U) LIGHT YELLOW TRANSPARENCY CLEAR Specific [place] (U) 1.024 1.001 - 1.030 U PH [...] ABD+PEL W CON Final Result by User, [id number] (08/10 2246) EXAMINATION: CT Abdomen and Pelvis [...] st Contact Info) Description 03/14/2024 11:45 AM BLOW PIT OPERATOR Office Visit [facility] [id number] Marvin Mckeon MD [facility] [address] [place] [address] 03/20/2024 11:30 AM BLOW PIT OPERATOR Office Visit [facility] Medical [facility] Family [facility] - [place] [address] [place] [phone] Abiodun Segura II, MD [address] [place] [address] documented as of this encounter Procedures Procedure [...] mg/dL 08/14/2019 1:12 PM CDT [facility] LAB ORDERS INTERFACE 08/14/2019 1:09 PM CDT us [facility] BAKERY DECORATOR POCT ORDERABLES - DEVICE Fi nal Result Performing Organization Address [facility] Co de Phone Number [facility] LAB ORDERS INTERFACE US * (ABNORMAL) POCT glucose (08/14/2019 5:50 AM CDT) GLUCOSE POC 192(H) 70 - 99 mg/dL 08/14/2019 5:57 AM CDT [facility] LAB ORDERS INTERFACE 08/14/2019 5:50 AM CDT [facility] BAKERY DECORATOR POCT ORDERABLES - DEVICE Fi nal Result Performing Organization Address [facility]/ZIP Co de Phone Number [facility] LAB ORDERS INTERFACE US * (ABNORMAL) COMPREHENSIVE METABOLIC PANEL (08/14/2019 4:25 AM CDT) [facility] GLUCOSE 211(H) 70 - 99 MG/DL 08/14/2019 5:34 AM CDT [facility] BUN 15 7 - 18 MG/DL 08/14/2019 5:34 AM CDT [facility] CREATININE S/P/B 1.14(H) 0.55 - 1.02 MG/DL 08/14/2019 5:34 AM CDT [facility] SODIUM S/P/B 135(L) 136 - 145 MMOL/L 08/14/2019 5:34 AM CDT [facility] POTASSIUM S/P/B 4.3 3.5 - 5.1 MMOL/L 08/14/2019 5:34 AM CDT [facility] CHLORIDE S/P/B 106 100 - 108 MMOL/L 08/14/2019 5:34 AM CDT [facility] CO2 24.6 21 - 32 MMOL/L 08/14/2019 5:34 AM CDT [facility] CALCIUM S/P/B 7.7(L) 8.5 - 10.1 MG/DL 08/14/2019 5:34 AM CDT [facility] BILIRUBIN TOTAL S/P/B 0.5 0.2 - 1.2 MG/DL 08/14/2019 5:34 AM CDT [facility] Comment: THIS ASSAY IS NOT RECOMMENDED FOR PATIENTS UNDERGOING TREATMENT WITH ELTROMBOPAG DUE TO THE POTENTIAL FOR FALSELY ELEVATED RESULTS. TOTAL PROTEIN S/P/B 6.8 6.4 - 8.2 G/DL 08/14/2019 5:34 AM CDT [facility] ALBUMIN S/P/B 2.4(L) 3.4 - 5.0 G/DL 08/14/2019 5:34 AM CDT [facility] AST 13(L) 15 - 37 U/L 08/14/2019 5:34 AM CDT [facility] ALT 15 14 - 55 U/L 08/14/2019 5:34 AM CDT [facility] ALKALINE PHOSPHATASE S/P/B 87 50 - 136 U/L 08/14/2019 5:34 AM CDT [facility] ANION GAP 4.4(L) 5 - 15 MMOL/L 08/14/2019 5:34 AM CDT [facility] BUN CREATININE RATIO 13.2 6 - 26 08/14/2019 5:34 AM CDT [facility] A/G RATIO 0.5(L) 1.0 - 2.0 RATIO 08/14/2019 5:34 AM CDT [facility] EGFR NON-AFR. AMER. 57(L) >90 ML/MIN/1.7 3 M2 08/14/2019 5:34 AM CDT [facility] EGFR AFR. AMER. 66(L) >90 ML/MIN/1.7 3 M2 08/14/2019 5:34 AM CDT [facility] Comment: NOTE: eGFR is not calculated for patients <18 years of age. This is an estimated GFR (CKD EPI) and should not be used for calculating drug doses. 08/14/2019 4:25 AM CDT Rosa Isela Lutz NP LABORATORY Final Result [facility] [address] [place] [address], [place] [phone] * (ABNORMAL) CBC W/DIFF AUTOMATED (08/14/2019 4:25 AM CDT) WBC 12.0(H) 4.5 - 11.0 x10'3/uL 08/14/2019 6:45 AM CDT [facility] RBC 3.19(L) 4.20 - 5.40 x10'6/uL 08/14/2019 6:45 AM CDT [facility] HGB 9.8(L) 12.0 - 16.0 G/DL 08/14/2019 6:45 AM CDT [facility] HCT 29.3(L) 38.0 - 48.0 % 08/14/2019 6:45 AM CDT [facility] MCV 91.8 80.0 - 94.0 FL 08/14/2019 6:45 AM CDT [facility] MCH 30.7 27.0 - 31.0 PG 08/14/2019 6:45 AM CDT [facility] MCHC 33.4 32.0 - 36.0 G/DL 08/14/2019 6:45 AM CDT [facility] RDW 12.6 11.5 - 14.5 % 08/14/2019 6:45 AM CDT [facility] PLT 258 130 - 400 x10'3/uL 08/14/2019 6:45 AM CDT [facility] MPV 11.5 9.3 - 12.2 FL 08/14/2019 6:45 AM CDT [facility] DIFFERENTIAL TYPE AUTOMATED DIFFERENTIAL 08/14/2019 6:45 AM CDT [facility] NEUTROPHILS % 80.9 % 08/14/2019 6:45 AM CDT [facility] LYMPHOCYTES % 13.9 % 08/14/2019 6:45 AM CDT [facility] MONOCYTES % 4.1 % 08/14/2019 6:45 AM CDT [facility] EOSINOPHILS 0.5 % 08/14/2019 6:45 AM CDT [facility] BASOPHILS 0.2 % 08/14/2019 6:45 AM CDT [facility] IMMATURE GRANS % 0.4 % 08/14/19 20 6:45 AM CDT [facility] ABS. NEUTROPHILS TOTAL 9.68(H) 1.80 - 7.70 x10'3/uL 08/14/2019 6:45 AM CDT [facility] ABS. LYMPHOCYTES 1.66 1.00 - 4.80 x10'3/uL 08/14/2019 6:45 AM CDT [facility] ABS. MONOCYTES 0.49 0.24 - 0.86 x10'3/uL 08/14/2019 6:45 AM CDT [facility] ABS. EOSINOPHILS 0.06 0.04 - 0.36 x10'3/uL 08/14/2019 6:45 AM CDT [facility] ABS. BASOPHILS 0.02 0.01 - 0.08 x10'3/uL 08/14/2019 6:45 AM CDT [facility] ABS. IMMATURE GRANULOCYTES 0.05 0.00 - 0.49 x10'3/uL 08/14/2019 6:45 AM CDT [facility] 08/14/2019 4:25 AM CDT us Rosa Isela Lutz NP LABORATORY Final Result [facility] [address] [place] [address], [place] [phone] * (ABNORMAL) POCT glucose (08/13/2019 11:15 PM CDT) GLUCOSE POC 142(H) 70 - 99 mg/dL 08/13/2019 11:17 PM CDT [facility] LAB ORDERS INTERFACE 08/13/2019 11:1 5 PM CDT us Rosa Isela L Lutz BAKERY DECORATOR POCT ORDERABLES - DEVICE Katehryn l Result [facility] LAB ORDERS INTERFACE US * (ABNORMAL) POCT glucose (08/13/2019 5:56 PM CDT) GLUCOSE POC 173(H) 70 - 99 mg/dL 08/13/2019 5:57 PM CDT [facility] LAB ORDERS INTERFACE 08/13/2019 5:56 PM CDT us Rosa Isela Lutz BAKERY DECORATOR POCT ORDERABLES - DEVICE Katheryn l Result [facility] LAB ORDERS INTERFACE US * (ABNORMAL) POCT glucose (08/13/2019 4:05 PM CDT) GLUCOSE POC 181(H) 70 - 99 mg/dL 08/13/2019 4:26 PM CDT [facility] LAB ORDERS INTERFACE 08/13/2019 4:05 PM CDT us Rosa Isela Lutz BAKERY DECORATOR POCT ORDERABLES - DEVICE Katheryn l Result Performing Organization Address [facility]/ZIP Co de Phone Number [facility] LAB ORDERS INTERFACE US * (ABNORMAL) POCT glucose (08/13/2019 1:25 PM CDT) GLUCOSE POC 122(H) 70 - 99 mg/dL 08/14/2019 8:38 AM CDT [facility] LAB ORDERS INTERFACE 08/13/2019 1:25 PM CDT us Erica Lomax BAKERY DECORATOR POCT ORDERABLES - DEVICE Fi nal Result [facility] LAB ORDERS INTERFACE US * (ABNORMAL) POCT glucose (08/13/2019 12:13 PM CDT) GLUCOSE POC 178(H) 70 - 99 mg/dL 08/13/2019 12:17 PM CDT [facility] LAB ORDERS INTERFACE 08/13/2019 12:1 3 PM CDT Rosa Isela Rushing Bolivar BAKERY DECORATOR POCT ORDERABLES - DEVICE Katheryn l Result Performing Organization Address [facility] Co de Phone Number [facility] LAB ORDERS INTERFACE US * (ABNORMAL) POCT glucose (08/13/2019 11:16 AM CDT) GLUCOSE POC 187(H) 70 - 99 mg/dL 08/13/2019 11:21 AM CDT [facility] LAB ORDERS INTERFACE 08/13/2019 11:1 6 AM CDT Rosa Isela Rushing Bolivar BAKERY DECORATOR POCT ORDERABLES - DEVICE Katheryn l Result Performing Organization Address [facility] Co de Phone Number [facility] LAB ORDERS INTERFACE US * (ABNORMAL) POCT glucose (08/13/2019 4:20 AM CDT) GLUCOSE POC 192(H) 70 - 99 mg/dL 08/13/2019 4:22 AM CDT [facility] LAB ORDERS INTERFACE 08/13/2019 4:20 AM CDT Rosa Isela Rushing Bolivar BAKERY DECORATOR POCT ORDERABLES - DEVICE Katheryn l Result Performing Organization Address [facility] de Phone Number [facility] LAB ORDERS INTERFACE US * (ABNORMAL) COMPREHENSIVE METABOLIC PANEL (08/13/2019 4:20 AM CDT) GLUCOSE 193(H) 70 - 99 MG/DL 08/13/2019 5:25 AM CDT [facility] BUN 16 7 - 18 MG/DL 08/13/2019 5:25 AM CDT [facility] CREATININE S/P/B 0.93 0.55 - 1.02 MG/DL 08/13/2019 5:25 AM CDT [facility] SODIUM S/P/B 137 136 - 145 MMOL/L 08/13/2019 5:25 AM CDT [facility] POTASSIUM S/P/B 4.2 3.5 - 5.1 MMOL/L 08/13/2019 5:25 AM CDT [facility] CHLORIDE S/P/B 106 100 - 108 MMOL/L 08/13/2019 5:25 AM CDT [facility] CO2 26.6 21 - 32 MMOL/L 08/13/2019 5:25 AM CDT [facility] CALCIUM S/P/B 8.3(L) 8.5 - 10.1 MG/DL 08/13/2019 5:25 AM CDT [facility] BILIRUBIN TOTAL S/P/B 0.3 0.2 - 1.2 MG/DL 08/13/2019 5:25 AM CDT [facility] Comment: THIS ASSAY IS NOT RECOMMENDED FOR PATIENTS UNDERGOING TREATMENT WITH ELTROMBOPAG DUE TO THE POTENTIAL FOR FALSELY ELEVATED RESULTS. TOTAL PROTEIN S/P/B 7.6 6.4 - 8.2 G/DL 08/13/2019 5:25 AM CDT [facility] ALBUMIN S/P/B 2.7(L) 3.4 - 5.0 G/DL 08/13/2019 5:25 AM CDT [facility] AST 15 15 - 37 U/L 08/13/2019 5:25 AM CDT [facility] ALT 18 14 - 55 U/L 08/13/2019 5:25 AM CDT [facility] ALKALINE PHOSPHATASE S/P/B 109 50 - 136 U/L 08/13/2019 5:25 AM CDT [facility] ANION GAP 4.4(L) 5 - 15 MMOL/L 08/13/2019 5:25 AM CDT [facility] BUN CREATININE RATIO 17.2 6 - 26 08/13/2019 5:25 AM CDT [facility] A/G RATIO 0.6(L) 1.0 - 2.0 RATIO 08/13/2019 5:25 AM CDT [facility] EGFR NON-AFR. AMER. 73(L) >90 ML/MIN/1.7 3 M2 08/13/2019 5:25 AM CDT [facility] EGFR AFR. AMER. 84(L) >90 ML/MIN/1.7 3 M2 08/13/2019 5:25 AM CDT [facility] Comment: NOTE: eGFR is not calculated for patients <18 years of age. This is an estimated GFR (CKD EPI) and should not be used for calculating drug doses. 08/13/2019 4:20 AM CDT Rosa Isela Lutz NP LABORATORY Final Result [facility] [address] [place] [id number], * (ABNORMAL) CBC W/DIFF AUTOMATED (08/13/2019 4:20 AM CDT) WBC 9.8 4.5 - 11.0 x10'3/uL 08/13/2019 4:49 AM CDT [facility] RBC 3.61(L) 4.20 - 5.40 x10'6/uL 08/13/2019 4:49 AM CDT [facility] HGB 11.0(L) 12.0 - 16.0 G/DL 08/13/2019 4:49 AM CDT [facility] HCT 32.8(L) 38.0 - 48.0 % 08/13/2019 4:49 AM CDT [facility] MCV 90.9 81.0 - 99.0 FL 08/13/2019 4:49 AM CDT [facility] MCH 30.5 27.0 - 31.0 PG 08/13/2019 4:49 AM CDT [facility] MCHC 33.5 32.0 - 36.0 G/DL 08/13/2019 4:49 AM CDT [facility] RDW 12.4 11.5 - 14.5 % 08/13/2019 4:49 AM CDT [facility] PLT 267 130 - 400 x10'3/uL 08/13/2019 4:49 AM CDT [facility] MPV 11.2 9.3 - 12.2 FL 08/13/2019 4:49 AM CDT [facility] DIFFERENTIAL TYPE AUTOMATED DIFFERENTIAL 08/13/2019 4:49 AM CDT [facility] NEUTROPHILS % 58.6 % 08/13/2019 4:49 AM CDT [facility] LYMPHOCYTES % 34.4 % 08/13/2019 4:49 AM CDT [facility] MONOCYTES % 5.1 % 08/13/2019 4:49 AM CDT [facility] EOSINOPHILS 1.1 % 08/13/2019 4:49 AM CDT [facility] BASOPHILS 0.5 % 08/13/2019 4:49 AM CDT [facility] IMMATURE GRANS % 0.3 % 08/13/19 20 4:49 AM CDT [facility] ABS. NEUTROPHILS TOTAL 5.72 1.80 - 7.70 x10'3/uL 08/13/2019 4:49 AM CDT [facility] ABS. LYMPHOCYTES 3.36 1.00 - 4.80 x10'3/uL 08/13/2019 4:49 AM CDT [facility] ABS. MONOCYTES 0.50 0.24 - 0.86 x10'3/uL 08/13/2019 4:49 AM CDT [facility] ABS. EOSINOPHILS 0.11 0.04 - 0.36 x10'3/uL 08/13/2019 4:49 AM CDT [facility] ABS. BASOPHILS 0.05 0.01 - 0.08 x10'3/uL 08/13/2019 4:49 AM CDT [facility] ABS. IMMATURE GRANULOCYTES 0.03 0.00 - 0.49 x10'3/uL 08/13/2019 4:49 AM CDT [facility] 08/13/2019 4:20 AM CDT us Rosa Isela Lutz BAKERY DECORATOR LABORATORY Final Result [facility] [address] [place] [address], * Pathology (08/13/2019 12:00 AM CDT) COPATH REPORT ? [facility] ? [address] ? [place], [place] ??[address] ? [id number] ? Department of Pathology ? Pathology Report ? SURGICAL FINAL REPORT Patient Name: LENA YOUNGBLOOD ? : 1970 (Age: 49) ? Location: [address] Gender: F ?Collected Date: 08/13/2019 Med Rec #: [id number] ?Date Received: 08/14/2019 Date Reported: 08/15/2019 Provider: MIKAYLA PEREZ DO ?CARLINE BLOOM MD ?SORAYA SANZ MD ?ROSA ISELA LUTZ BAKERY DECORATOR ?ERICA LOMAX [facility] ?JARRED FERNÁNDEZ MD Specimen(s) A: Cervix B: [...] erosion is designated to be 3:00 position. Ballistics Expert Forensic sections from each quadrant are submitted in [...] serially sectioned to reveal a pinpoint lumen. Ballistics Expert Forensic sections of the right fallopian tube, to include the fimbriated end on the largest aspect, and the three separately submitted tissue fragments, are submitted in cassette B1 and B2. OJL:if Billing Fee Code(s): 28996, 77263 [facility] Tissue specimen (specimen) CERVIX UTERI STRUCTURE / Unknown 08/13/2019 3:16 PM CDT us Mikayla Perez DO PATHOLOGY/CYTOLOGY ORDERABLES Final Result [facility] [address] [place] [address], * (ABNORMAL) POCT glucose (08/12/2019 11:28 PM CDT) GLUCOSE POC 268(H) 70 - 99 mg/dL 08/12/2019 11:31 PM CDT [facility] LAB ORDERS INTERFACE 08/12/2019 11:2 8 PM CDT Rosa Isela Lutz BAKERY DECORATOR POCT ORDERABLES - DEVICE Katheryn l Result Performing Organization Address [facility] de Phone Number [facility] LAB ORDERS INTERFACE US * (ABNORMAL) POCT glucose (08/12/2019 5:23 PM CDT) GLUCOSE POC 149(H) 70 - 99 mg/dL 08/12/2019 5:24 PM CDT [facility] LAB ORDERS INTERFACE 08/12/2019 5:23 PM CDT Rosa Isela Lutz NP POCT ORDERABLES - DEVICE Katheryn l Result Performing Organization Address [facility] de Phone Number [facility] LAB ORDERS INTERFACE US * (ABNORMAL) POCT glucose (08/12/2019 11:37 AM CDT) GLUCOSE POC 148(H) 70 - 99 mg/dL 08/12/2019 11:39 AM CDT [facility] LAB ORDERS INTERFACE 08/12/2019 11:3 7 AM CDT Rosa Isela Lutz NP POCT ORDERABLES - DEVICE Katheryn l Result Performing Organization Address [facility] de Phone Number [facility] LAB ORDERS INTERFACE US * (ABNORMAL) POCT glucose (08/12/2019 6:07 AM CDT) GLUCOSE POC 160(H) 70 - 99 mg/dL 08/12/2019 6:09 AM CDT [facility] LAB ORDERS INTERFACE 08/12/2019 6:07 AM CDT Soraya Sanz MD POCT ORDERABLES - DEVICE Final Result [facility] LAB ORDERS INTERFACE US * (ABNORMAL) URINALYSIS, AUTO, COMPLETE (08/12/2019 1:00 AM CDT) SPECIMEN TYPE URINE CLEAN CATCH 08/12/2019 12:59 AM CDT [facility] COLOR (U) LIGHT YELLOW 08/12/2019 1:08 AM CDT [facility] TRANSPARENCY CLEAR 08/12/2019 1:08 AM CDT [facility] SPECIFIC GRAVITY (U) 1.024 1.001 - 1.030 08/12/2019 1:08 AM CDT [facility] U PH 5.5 5.0 - 9.0 08/12/2019 1:08 AM CDT [facility] LEUKOCYTES (U) NEGATIVE NEGATIVE 08/12/2019 1:08 AM CDT [facility] NITRITES NEGATIVE NEGATIVE 08/12/2019 1:08 AM T [facility] PROTEIN (U) 70(H) <30 MG/DL 08/12/2019 1:08 AM T [facility] URINE GLUCOSE 200(A) NORMAL MG/DL 08/12/2019 1:08 AM T [facility] KETONES MG/DL (U) NEGATIVE NEGATIVE MG/DL 08/12/2019 1:08 AM T [facility] UROBILINOGEN NORMAL NORMAL MG/DL 08/12/2019 1:08 AM [facility] BILIRUBIN (U) NEGATIVE NEGATIVE MG/DL 08/12/2019 1:08 AM [facility] BLOOD (U) NEGATIVE NEGATIVE 08/12/2019 1:08 AM [facility] CULTURE & SENSITIVITY INDICATED? CULTURE IS NOT INDICATED 08/12/2019 1:08 AM [facility] MUCUS RARE /LPF 08/12/2019 1:08 AM [facility] WBC/HPF 1 <6 /HPF 08/12/2019 1:08 AM [facility] RBC/HPF 1 <6 /HPF 08/12/2019 1:08 AM [facility] BACTERIA (U) RARE(A) NONE /HPF 08/12/2019 1:08 AM [facility] SQUAMOUS EPITHELIALS RARE /HPF 08/12/2019 1:08 AM [facility] URINE SPECIMEN OBTAINED BY CLEAN CATCH PROCEDURE / Unknown 08/12/2019 1:00 AM CDT Christ Coombs MD URINE ORDERABLES Final Result [facility] [address] [place] [address], * CT ABD+PEL W CON (08/11/2019 10:29 [...] SPEC DESCRIPTION BLOOD 08/11/19 10:34 PM [facility] SPECIAL REQUESTS LAC 08/11/19 10:34 PM [facility] CULTURE RESULT NO GROWTH 6 DAYS 08/17/2019 11:24 AM [facility] BLOOD SPECIMEN OBTAINED FOR BLOOD CULTURE / Unknown 08/11/2019 10:27 PM CDT 08/11/2019 10:34 PM CDT Christ Coombs MD MICROBIOLOGY - GENERAL ORDERABL ES Final Result [facility] [address] [place] [id number], [place] [phone] * CULTURE, BACTERIA, BLOOD (08/11/2019 10:27 PM CDT) SPEC DESCRIPTION BLOOD 08/11/19 10:34 PM [facility]T [facility] SPECIAL REQUESTS HAND,RIGHT 08/11/19 10:34 PM CDT [facility] CULTURE RESULT NO GROWTH 6 DAYS 08/17/2019 11:24 AM CDT [facility] BLOOD SPECIMEN OBTAINED FOR BLOOD CULTURE / Unknown 08/11/2019 10:27 PM CDT 08/11/2019 10:34 PM CDT Christ Coombs MD MICROBIOLOGY - GENERAL ORDERABL ES Final Result [facility] [address] [place] [address], [place] [phone] * LACTIC ACID (08/11/2019 10:27 PM CDT) LACTIC ACID VENOUS 1.2 0.4 - 2.0 MMOL/L 08/11/2019 11:01 PM CDT [facility] 08/11/2019 10:2 7 PM CDT us Christ Coombs MD LABORATORY Final Result Performing Organization Address [facility] Co de Phone Number [facility] [address] [place] [address], [place] [phone] * (ABNORMAL) MAGNESIUM (08/11/2019 9:29 PM CDT) MAGNESIUM 1.6(L) 1.8 - 2.4 MG/DL 08/11/2019 10:46 PM CDT [facility] 08/11/2019 9:29 PM CDT us Christ Coombs MD LABORATORY Final Result Performing Organization Address [facility] Co de Phone Number [facility] [address] [place] [address], [place] [phone] * LIPASE (08/11/2019 9:29 PM CDT) LIPASE 113 73 - 393 UNITS/L 08/11/2019 10:03 PM CDT [facility] 08/11/2019 9:29 PM CDT us Christ Coombs MD LABORATORY Final Result Performing Organization Address [facility] Co de Phone Number [facility] [address] [place] [address], [place] [phone] * (ABNORMAL) COMPREHENSIVE METABOLIC PANEL (08/11/2019 9:29 PM CDT) GLUCOSE 220(H) 70 - 99 MG/DL 08/11/2019 10:03 PM CDT [facility] BUN 20(H) 7 - 18 MG/DL 08/11/2019 10:03 PM CDT [facility] CREATININE S/P/B 1.09(H) 0.55 - 1.02 MG/DL 08/11/2019 10:03 PM T [facility] SODIUM S/P/B 134(L) 136 - 145 MMOL/L 08/11/2019 10:03 PM T [facility] POTASSIUM S/P/B 3.7 3.5 - 5.1 MMOL/L 08/11/2019 10:03 PM T [facility] CHLORIDE S/P/B 100 100 - 108 MMOL/L 08/11/2019 10:03 PM T [facility] CO2 30.2 21 - 32 MMOL/L 08/11/2019 10:03 PM T [facility] CALCIUM S/P/B 9.4 8.5 - 10.1 MG/DL 08/11/2019 10:03 PM T [facility] BILIRUBIN TOTAL S/P/B 0.4 0.2 - 1.2 MG/DL 08/11/2019 10:03 PM [facility] Comment: THIS ASSAY IS NOT RECOMMENDED FOR PATIENTS UNDERGOING TREATMENT WITH ELTROMBOPAG DUE TO THE POTENTIAL FOR FALSELY ELEVATED RESULTS. TOTAL PROTEIN S/P/B 9.4(H) 6.4 - 8.2 G/DL 08/11/2019 10:03 PM T [facility] ALBUMIN S/P/B 3.6 3.4 - 5.0 G/DL 08/11/2019 10:03 PM T [facility] AST 14(L) 15 - 37 U/L 08/11/2019 10:03 PM T [facility] ALT 22 14 - 55 U/L 08/11/2019 10:03 PM T [facility] ALKALINE PHOSPHATASE S/P/B 127 50 - 136 U/L 08/11/2019 10:03 PM CDT [facility] ANION GAP 3.8(L) 5 - 15 MMOL/L 08/11/2019 10:03 PM CDT [facility] BUN CREATININE RATIO 18.3 6 - 26 08/11/2019 10:03 PM CDT [facility] A/G RATIO 0.6(L) 1.0 - 2.0 RATIO 08/11/2019 10:03 PM CDT [facility] EGFR NON-AFR. AMER. 60(L) >90 ML/MIN/1.7 3 M2 08/11/2019 10:03 PM CDT [facility] EGFR AFR. AMER. 70(L) >90 ML/MIN/1.7 3 M2 08/11/2019 10:03 PM CDT [facility] Comment: NOTE: eGFR is not calculated for patients <18 years of age. This is an estimated GFR (CKD EPI) and should not be used for calculating drug doses. 08/11/2019 9:29 PM CDT Christ Coombs MD LABORATORY Final Result [facility] [address] [place] [address], * (ABNORMAL) CBC W/DIFF AUTOMATED (08/11/2019 9:29 PM CDT) WBC 11.9(H) 4.5 - 11.0 x10'3/uL 08/11/2019 9:40 PM CDT [facility] RBC 4.07(L) 4.20 - 5.40 x10'6/uL 08/11/2019 9:40 PM CDT [facility] HGB 12.5 12.0 - 16.0 G/DL 08/11/2019 9:40 PM CDT [facility] HCT 36.6(L) 38.0 - 48.0 % 08/11/2019 9:40 PM CDT [facility] MCV 89.9 80.0 - 94.0 FL 08/11/2019 9:40 PM CDT [facility] MCH 30.7 27.0 - 31.0 PG 08/11/2019 9:40 PM CDT [facility] MCHC 34.2 32.0 - 36.0 G/DL 08/11/2019 9:40 PM CDT [facility] RDW 12.4 11.5 - 14.5 % 08/11/2019 9:40 PM CDT [facility] PLT 288 130 - 400 x10'3/uL 08/11/2019 9:40 PM CDT [facility] MPV 10.9 9.3 - 12.2 FL 08/11/2019 9:40 PM CDT [facility] DIFFERENTIAL TYPE AUTOMATED DIFFERENTIAL 08/11/2019 9:40 PM CDT [facility] NEUTROPHILS % 66.9 % 08/11/2019 9:40 PM CDT [facility] LYMPHOCYTES % 27.5 % 08/11/2019 9:40 PM CDT [facility] MONOCYTES % 3.9 % 08/11/2019 9:40 PM CDT [facility] EOSINOPHILS 0.8 % 08/11/2019 9:40 PM CDT [facility] BASOPHILS 0.5 % 08/11/2019 9:40 PM CDT [facility] IMMATURE GRANS % 0.4 % 08/11/19 20 9:40 PM CDT [facility] ABS. NEUTROPHILS TOTAL 7.97(H) 1.80 - 7.70 x10'3/uL 08/11/2019 9:40 PM CDT [facility] ABS. LYMPHOCYTES 3.27 1.00 - 4.80 x10'3/uL 08/11/2019 9:40 PM CDT [facility] ABS. MONOCYTES 0.46 0.24 - 0.86 x10'3/uL 08/11/2019 9:40 PM CDT [facility] ABS. EOSINOPHILS 0.09 0.04 - 0.36 x10'3/uL 08/11/2019 9:40 PM CDT [facility] ABS. BASOPHILS 0.06 0.01 - 0.08 x10'3/uL 08/11/2019 9:40 PM CDT [facility] ABS. IMMATURE GRANULOCYTES 0.05 0.00 - 0.49 x10'3/uL 08/11/2019 9:40 PM CDT [facility] 08/11/2019 9:29 PM CDT Christ Coombs MD LABORATORY Final Result [facility] [address] [place] [address], [place] [phone] documented in this encounter Visit Diagnoses Not [...] sources in 24 hours. Usulaay begin after DOCUMENT MANAGEMENT ANALYST stopped., Post-Op Given 08/14/2019 4:52 PM CDT [...] on Sun08/13/19 at 1815, Until Discontinued, After DOCUMENT MANAGEMENT ANALYST stopped, may go to q 6 hours [...] surgery planned)1254 (MAR Hold - Provider: User Mempile - Reason: Unreviewed Transfer Orders)1559 (APR Unhold [...] (COMPLETED) 600 mg, Intravenous, at 100 mL/hr, waistline joiner to O.R., 1 dose, First dose on Sun08/13/19 at 1145 1254 (APR Hold - Provider: User Epic - Reason: Unreviewed Transfer Orders)1300 (New Bag - Provider: Mikayla Chandler CRNA)1559 ([facility] Unhold - Provider: User Epic) docusate sodium (COLACE) capsule 100 mg 100 mg, Oral, 2 times daily, First dose on Sun08/12/19 at 0900, Until Discontinued 1001 (Given - Provider: Sandy Bell RN)2047 (Given - Provider: Ashanti Amor, DEANDRE) 0845 (Not Given - Provider: Sandy Bell RN - Reason: NPO)1254 (APR Hold - Provider: User Epic - Reason: Unreviewed Transfer Orders)1559 ([facility] Unhold - Provider: User Epic)2047 (Given - Provider: Ashanti Amor, DEANDRE) 0905 (Given - Provider: Tomeka Collins, DEANDRE) [...] (COMPLETED) 120 mg, Intravenous, at 100 mL/hr, waistline joiner to O.R., 1 dose, First dose on Sun08/13/19 at 1145 1254 (APR Hold - Provider: User Epic - Reason: Unreviewed Transfer Orders)1300 (New Bag - Provider: Mikayla Chandlre CRNA)1559 (APR Unhold - Provider: User Epic) [...] on Sun08/13/19 at 1815, Until Discontinued, After DOCUMENT MANAGEMENT ANALYST stopped, may go to q 6 hours [...] 0838 (Given - Provider: Sandy Bell RN)1254 ([facility] Hold - Provider: User Epic - Reason: Unreviewed Transfer Orders)155 ([facility] Unhold - Provider: User Epic)2046 (Given - [...] Provider: Sandy Bell RN - Reason: NPO)1254 ([facility] Hold - Provider: User Epic - Reason: Unreviewed Transfer Orders)155 ([facility] Unhold - Provider: User Epic)213 (Not Given - Provider: Ashanti Amor RN - Reason: Patient/family declined) 0906 (Given - Provider: Tomeka Collins, DEANDRE) Senna (SENOKOT) 8.6 MG tablet 8.6 mg (CANCELED) 8.6 mg, Oral, Daily, First dose on Sun08/12/19 at 0900, Until Discontinued 1130 (Given - Provider: Sandy Bell RN) 0846 (Not Given - Provider: Sandy Bell RN - Reason: NPO)1254 ([facility] Hold - Provider: User Epic - Reason: Unreviewed Transfer Orders)155 ([facility] Unhold - Provider: User Epic) senna-docusate (SENOKOT-S) [...] rate, Pre-Op 1234 (New Bag - Provider: Mikayal Chandler CRNA)1517 (New Bag - Provider: Mikayla [...] sources in 24 hours. Usulaay begin after DOCUMENT MANAGEMENT ANALYST stopped., Post-Op 09 (Given - Provider: Tomeka Collins RN)165 (Given - Provider: Benjamin Newell RN) HYDROcodone-acetaminophen (NORCO) 5-325 MG tablet 1 tablet 1 tablet, Oral, Every 4 hours PRN, Moderate pain (Scale 4 - 7), Starting on Sun08/13/19 at 1745, Until Viky 08/14/19 at 1957, Maximum dose of acetaminophen is 4000 mg from all sources in 24 hours. Usually begin after DOCUMENT MANAGEMENT ANALYST stopped., Post-Op HYDROmorphone (DILAUDID) injection 0.5 mg [...] RN) 1254 (MAR Hold - Provider: User Mempile - Reason: Unreviewed Transfer Orders)1559 (MAR Unhold - Provider: User Epic) magnesium hydroxide (MILK OF MAGNESIA) 400 MG/5ML suspension 30 mL 30 mL, Oral, 2 times daily PRN, Constipation, Starting on Sun08/13/19 at 1745, Until Viky 08/14/19 at 195, Shake Well, Post-Op soatcsnnc-upsmzjgr-egzfho icone (MYLANTA MAXIMUM STRENGTH) [id number] mg/30mL suspension 10 mL, Oral, Every 4 [...] User Epic - Reason: Unreviewed Transfer Orders)1559 ([facility] Unhold - Provider: User Epic) simethicone (MYLICON) [...] (COMPLETED) documented in this encounter Care Teams Cisco Network Engineer Relationship Specialty Start Date End Date Jarred Fernández MD PCP - General FAMILY PRACTICE 07/21/15 09/30/20 documented as of this encounter
--- OUTSIDE RECORDS SUMMARY | 2024-03-03 01:30 | XMS_ITS | Encounter Summary ---
Author Organization [facility] Address [address] [place] [address]. [place], [place] [id number] [place] [address] Care Team Providers Care Pantry Chef Name Role Phone Jarred Rod MD Primary [...] st Contact Info) Description 03/14/2024 11:45 AM SANITATION SUPERINTENDENT Office Visit [facility] [phone] Marvin Mckeon MD [facility] [address] [place] [address] 03/20/2024 11:30 AM SANITATION SUPERINTENDENT Office Visit [facility] Family Medicine - [address] [phone] Abiodun Segura II, MD [address] [place] [address] documented as of this encounter Visit Diagnoses Not on filedocumented in this encounter Care Teams Pantry Chef Relationship Specialty Start Date End Date Jarred Rod MD PCP - General FAMILY PRACTICE 07/21/15 09/30/20 documented as of this encounter
--- OUTSIDE RECORDS SUMMARY | 2024-03-03 01:30 | XMS_ITS | Encounter Summary ---
Author Organization [facility] Address [address] [place] [address]. [place] [address] [place] [address] Care Team Providers Care Director Payment Name Role Phone Jarred Rod MD Primary Care Provider Unav ailable Reason for Referral * Imaging (Emergency) - Closed Specialty Diagnoses / Procedures Referred By Lyla chaney Referred To Contact RADIOLOGY Procedures CT ABD+PEL W IV CON ONLY Kvng Lewis MD [address] [address] Phone: tel: fax: Referral ID Status Reason Start Date Expiration Date Visits Re quested Visits Authorized [id number] Closed 11/12/2019 12/11/2020 1 1 Reason for Visit * Reason Comments Abdominal Pain Encounter Details Date Type Department Care Team (Late st Contact Info) Description 11/12/2019 12:31 AM CDT - 11/12/2019 4:26 AM CDT Emergency [facility] Emergency Room [place], [place] [id number] Kvng Lewis MD [address] [phone] Abdominal Pain Discharge Disposition: Home or Self [...] Care Everywhere. * Urinary Obstruction Discharge Instructions (Belarusian) documented in this encounter Medications at Time [...] CATCH COLOR (U) YELLOW TRANSPARENCY CLEAR Specific [place] (U) 1.014 1.001 - 1.030 U PH [...] NEGATIVE Internal Control performed as Expected? LOT: [id number] EXP:2019-06-[address] ABD+PEL W IV CON ONLY Final Result by User, [id number] (11/11 035) Date: 11/12/2019 3:22 AM Exam: [...] patient is seeking a second opinion at [facility] because she does not wish to travel to [place] as recommended. Will discharge home with pain [...] st Contact Info) Description 03/14/2024 11:45 AM OVERCASTER Office Visit [facility] [phone] Marvin Mckeon MD Three [facility] [address] [place], [place] [phone] 03/20/2024 11:30 AM OVERCASTER Office Visit [facility] Family [facility] - [place] [address] [place] [phone] Abiodun Segura II, MD [address] [place], [place] [phone] documented as of this encounter Procedures Procedure [...] NEGATIVE Internal Control performed as Expected? LOT: [id number] EXP: VALID Kvng Lewis MD POINT OF CARE TEST ORDER ROLF Final Result * (ABNORMAL) URINALYSIS (11/12/2019 2:36 AM CDT) SPECIMEN TYPE URINE CLEAN CATCH 11/12/2019 2:[address] [facility] COLOR (U) YELLOW 11/12/2019 3:[address] [facility] TRANSPARENCY CLEAR 11/12/2019 3:[address] [facility] SPECIFIC GRAVITY (U) 1.014 1.001 - 1.030 11/12/2019 3:[address] [facility] U PH 6.5 5.0 - 9.0 11/12/2019 3:[address] [facility] LEUKOCYTES (U) NEGATIVE NEGATIVE 11/12/2019 3:[address] [facility] NITRITES NEGATIVE NEGATIVE 11/12/2019 3:[address] [facility] PROTEIN (U) 100(H) <30 MG/DL 11/12/2019 3:[address] [facility] URINE GLUCOSE NORMAL NORMAL MG/DL 11/12/2019 3:[address] [facility] KETONES MG/DL (U) NEGATIVE NEGATIVE MG/DL 11/12/2019 3:[address] [facility] UROBILINOGEN NORMAL NORMAL MG/DL 11/12/2019 3:[address] [facility] BILIRUBIN (U) NEGATIVE NEGATIVE MG/DL 11/12/2019 3:[address] [facility] BLOOD (U) NEGATIVE NEGATIVE 11/12/2019 3:[address] [facility] CULTURE & SENSITIVITY INDICATED? CULTURE IS NOT INDICATED 11/12/2019 3:[address] [facility] MUCUS RARE /LPF 11/12/2019 3:[address] [facility] WBC/HPF 1 <6 /HPF 11/12/2019 3:[address] [facility] RBC/HPF 1 <6 /HPF 11/12/2019 3:[address] [facility] BACTERIA (U) RARE(A) NONE /HPF 11/12/2019 3:[address] [facility] SQUAMOUS EPITHELIALS RARE /HPF 11/12/2019 3:[address] [facility] URINE SPECIMEN OBTAINED BY CLEAN CATCH PROCEDURE / Unknown 11/12/2019 2:36 AM CDT Kvng Lewis MD URINE ORDERABLES Final R esult [facility] [address] [place] [address], [place] [phone] * LIPASE (11/12/2019 1:28 AM CDT) LIPASE 100 73 - 393 UNITS/L 11/12/2019 2:[address] [facility] 11/12/2019 1:28 AM CDT Kvng Lewis MD LABORATORY Final Re sult [facility] [address] [place] [address], * (ABNORMAL) COMPREHENSIVE METABOLIC PANEL (11/12/2019 1:28 AM CDT) GLUCOSE 109(H) 70 - 99 MG/DL 11/12/2019 2:[address] [facility] BUN 20(H) 7 - 18 MG/DL 11/12/2019 2:[address] [facility] CREATININE S/P/B 1.23(H) 0.55 - 1.02 MG/DL 11/12/2019 2:[address] [facility] SODIUM S/P/B 137 136 - 145 MMOL/L 11/12/2019 2:[address] [facility] POTASSIUM S/P/B 3.9 3.5 - 5.1 MMOL/L 11/12/2019 2:[address] [facility] CHLORIDE S/P/B 103 100 - 108 MMOL/L 11/12/2019 2:[address] [facility] CO2 28.5 21 - 32 MMOL/L 11/12/2019 2:[address] [facility] CALCIUM S/P/B 9.3 8.5 - 10.1 MG/DL 11/12/2019 2:[address] [facility] BILIRUBIN TOTAL S/P/B 0.4 0.2 - 1.2 MG/DL 11/12/2019 2:03 AM [facility] Comment: THIS ASSAY IS NOT RECOMMENDED FOR PATIENTS UNDERGOING TREATMENT WITH ELTROMBOPAG DUE TO THE POTENTIAL FOR FALSELY ELEVATED RESULTS. TOTAL PROTEIN S/P/B 7.9 6.4 - 8.2 G/DL 11/12/2019 2:03 AM [facility] ALBUMIN S/P/B 3.6 3.4 - 5.0 G/DL 11/12/2019 2:[address] [facility] AST 23 15 - 37 U/L 11/12/2019 2:03 AM [facility] ALT 38 14 - 55 U/L 11/12/2019 2:03 AM [facility] ALKALINE PHOSPHATASE S/P/B 133 50 - 136 U/L 11/12/2019 2:03 AM [facility] ANION GAP 5.5 5 - 15 MMOL/L 11/12/2019 2:[address] [facility] BUN CREATININE RATIO 16.3 6 - 26 11/12/2019 2:03 AM [facility] A/G RATIO 0.8(L) 1.0 - 2.0 RATIO 11/12/2019 2:03 AM [facility] EGFR NON-AFR. AMER. 52(L) >90 ML/MIN/1.7 3 M2 11/12/2019 2:[address] [facility] EGFR AFR. AMER. 60(L) >90 ML/MIN/1.7 3 M2 11/12/2019 2:03 AM [facility] Comment: NOTE: eGFR is not calculated for patients <18 years of age. This is an estimated GFR (CKD EPI) and should not be used for calculating drug doses. 11/12/2019 1:28 AM CDT Kvng Lewis MD LABORATORY Final Re sult [facility] [address] [place] [address], * (ABNORMAL) CBC W/DIFF AUTOMATED (11/12/2019 1:28 AM CDT) WBC 13.1(H) 4.5 - 11.0 x10'3/uL 11/12/2019 1:[address] [facility] RBC 3.95(L) 4.20 - 5.40 x10'6/uL 11/12/2019 1:[address] [facility] HGB 12.0 12.0 - 16.0 G/DL 11/12/2019 1:[address] [facility] HCT 36.1(L) 38.0 - 48.0 % 11/12/2019 1:[address] [facility] MCV 91.4 80.0 - 94.0 FL 11/12/2019 1:[address] [facility] MCH 30.4 27.0 - 31.0 PG 11/12/2019 1:[address] [facility] MCHC 33.2 32.0 - 36.0 G/DL 11/12/2019 1:[address] [facility] RDW 12.7 11.5 - 14.5 % 11/12/2019 1:[address] [facility] PLT 281 130 - 400 x10'3/uL 11/12/2019 1:[address] [facility] MPV 11.3 9.3 - 12.2 FL 11/12/2019 1:[address] [facility] DIFFERENTIAL TYPE AUTOMATED DIFFERENTIAL 11/12/2019 1:[address] [facility] NEUTROPHILS % 79.5 % 11/12/2019 1:[address] [facility] LYMPHOCYTES % 15.0 % 11/12/2019 1:[address] [facility] MONOCYTES % 3.3 % 11/12/2019 1:[address] [facility] EOSINOPHILS 1.4 % 11/12/2019 1:[address] [facility] BASOPHILS 0.4 % 11/12/2019 1:[address] [facility] IMMATURE GRANS % 0.4 % 11/12/19 20 1:[address] [facility] ABS. NEUTROPHILS TOTAL 10.42(H) 1.80 - 7.70 x10'3/uL 11/12/2019 1:[address] [facility] ABS. LYMPHOCYTES 1.97 1.00 - 4.80 x10'3/uL 11/12/2019 1:[address] [facility] ABS. MONOCYTES 0.43 0.24 - 0.86 x10'3/uL 11/12/2019 1:[address] [facility] ABS. EOSINOPHILS 0.18 0.04 - 0.36 x10'3/uL 11/12/2019 1:[address] [facility] ABS. BASOPHILS 0.05 0.01 - 0.08 x10'3/uL 11/12/2019 1:[address] [facility] ABS. IMMATURE GRANULOCYTES 0.05 0.00 - 0.49 x10'3/uL 11/12/2019 1:[address] [facility] 11/12/2019 1:28 AM CDT us Kvng Lewis MD LABORATORY Final Re sult [facility] [address] [place] [address], [place] [phone] documented in this encounter Visit Diagnoses Diagnosis [...] RTR) documented in this encounter Care Teams Director Payment Relationship Specialty Start Date End Date Jarred Rod MD PCP - General FAMILY PRACTICE 07/21/15 09/30/20 documented as of this encounter
--- OUTSIDE RECORDS SUMMARY | 2024-03-03 01:30 | XMS_ITS | Encounter Summary ---
Author Organization [facility] Address [address] [place] [address]. [place], [place] [id number] [place] [address] Care Team Providers Care Ibm Websphere Portal Developer Name Role Phone Jarred Rod MD Primary Care Provider Unav ailable Shira Shi PA-C Primary Care Provider [phone] Jarred Rod MD Primary Care Provider Unav [...] COVID-19? No / Unsure 01/24/2021 11:10 AM NUCLEAR UNIT OPERATOR documented as of this encounter [...] st Contact Info) Description 03/14/2024 11:45 AM NUCLEAR UNIT OPERATOR Office Visit [facility] [phone] Marvin Mckeon MD Three [facility] [address] [place] [phone] 03/20/2024 11:30 AM NUCLEAR UNIT OPERATOR Office Visit [facility] Family Medicine - [address] [phone] Abiodun Segura II, MD [address] [place] [phone] documented as of this encounter Visit Diagnoses Not on filedocumented in this encounter Additional Health Concerns Infection Onset Date Last Indicated Resolved Time COVID-19 Rule Out 09/22/2019 09/22/2019 09/24/2019 11:13 PM CDT COVID-19 Rule Out 11/02/2019 11/02/2019 11/03/2019 3:22 PM CDT COVID-19 Rule Out 12/13/2019 12/13/2019 12/14/2019 3:06 PM CDT COVID-19 Confirmed 12/13/2019 12/13/2019 0 12:34 AM NUCLEAR UNIT OPERATOR documented as of this encounter Care Teams Ibm Websphere Portal Developer Relationship Specialty Start Date End Date Jarred Rod MD PCP - General FAMILY PRACTICE 07/21/15 09/30/20 Shira Shi, JESUSC [address] [place] [address] PCP - General PHYSICIAN RADIOGRAPHER TECHNOLOGIST 10/01/20 11/17/20 Jarred Rod MD [address] [place] [address] PCP - General FAMILY PRACTICE 11/18/20 12/05/20 Abiodun Segura II, MD [address] [place] [address] PCP - General FAMILY PRACTICE 12/06/20 01/16/21 Jarred Rod MD [address] [place] [address] PCP - General FAMILY PRACTICE 01/17/21 03/08/21 documented as of this encounter
--- OUTSIDE RECORDS SUMMARY | 2024-03-03 01:30 | XMS_ITS | Encounter Summary ---
Author Organization [facility] Address [address] [place] [address]. [place], [place] [id number] [place] [address] Care Team Providers Care Steward/Stewardess [employer] Car Name Role Phone Jarred Rod MD Primary Care Provider Unav ailable Shira Shi PA-C Primary Care Provider [phone]- [phone] Jarred Rod MD Primary Care Provider Unav [...] COVID-19? No / Unsure 01/24/2021 11:10 AM [employer] documented as of this encounter Functional Status [...] st Contact Info) Description 03/14/2024 11:45 AM [employer] Office Visit [facility] [phone] Marvin Mckeon MD [facility] [address] [place] [address] 03/20/2024 11:30 AM [employer] Office Visit [facility] - [place] [address] [place] [address] Abiodun Segura II, MD [address] [place] [address] documented as of this encounter Procedures Procedure [...] COVID-19 Confirmed 12/13/2019 12/13/2019 0 12:34 AM [employer] documented as of this encounter Care Teams Steward/[employer] Relationship Specialty Start Date End Date Jarred Rod MD PCP - General FAMILY PRACTICE 07/21/15 09/30/20 Shira Shi PA-C [address] [place] [id number] PCP - General PHYSICIAN HAND BU[employer]ING WHEEL FORMER 10/01/20 11/17/20 Jarred Rod MD [address] [place] [id number] PCP - General FAMILY PRACTICE 11/18/20 12/05/20 Abiodun Segura II, MD [address] [place] [id number] PCP - General FAMILY PRACTICE 12/06/20 01/16/21 Jarred Rod MD [address] [place] [id number] PCP - General FAMILY PRACTICE 01/17/21 03/08/21 documented as of this encounter
--- OUTSIDE RECORDS SUMMARY | 2024-03-03 01:30 | XMS_ITS | Encounter Summary ---
Author Organization [facility] Address [address] [place] [address]. [place], [place] [address] [place] [address] Care Team Providers Care Publishing Director Name Role Phone Jarred Rod MD Primary Care Provider Unav ailable Shira Shi PA-C Primary Care Provider +1- [phone] Jarred Rod MD Primary Care Provider Unav [...] COVID-19? No / Unsure 01/24/2021 11:10 AM CERTIFIED ORTHOTIST/PEDORTHIST documented as of this encounter Functional Status [...] Contact Info) Description 03/14/2024 11:45 AM CERTIFIED ORTHOTIST/PEDORTHIST Office Visit [facility] [address] [facility] [address] [place] [address] 03/20/2024 11:30 AM CERTIFIED ORTHOTIST/PEDORTHIST Office Visit [facility] Family Medicine - [place] 100 [place] [address] Abiodun Segura II, MD [address] [place] [address] documented as of this encounter Visit Diagnoses Not on filedocumented in this encounter Additional Health Concerns Infection Onset Date Last Indicated Resolved Time COVID-19 Rule Out 12/13/2019 12/13/2019 12/14/2019 3:06 PM CDT COVID-19 Confirmed 12/13/2019 12/13/2019 0 12:34 AM CERTIFIED ORTHOTIST/PEDORTHIST documented as of this encounter Care Teams Publishing Director Relationship Specialty Start Date End Date Jarred Rod MD PCP - General FAMILY PRACTICE 07/21/15 09/30/20 Shira Shi PA-C [address] [place] [address] PCP - General PHYSICIAN TRUCK SHOP MECHANIC 10/01/20 11/17/20 Jarred Rod MD [address] [place] [address]44 PCP - General FAMILY PRACTICE 11/18/20 12/05/20 Abiodun Segura II, MD [address] [place] [address] PCP - General FAMILY PRACTICE 12/06/20 01/16/21 Jarred Rod MD [address] [place] [address] PCP - General FAMILY PRACTICE 01/17/21 03/08/21 documented as of this encounter
--- OUTSIDE RECORDS SUMMARY | 2024-03-03 01:31 | XMS_ITS | Encounter Summary ---
Author Organization [facility] Address [address] [place] [address]. [place], [place] [address] [place] [address] Care Team Providers Care Internal Combustion Engineer Name Role Phone Jarred Rod MD Primary Care Provider Unav ailable Shira Shi PA-C Primary Care Provider +1- [phone] Jarred Rod MD Primary Care Provider Unav [...] COVID-19? No / Unsure 01/24/2021 11:10 AM TRACTION POWER ENGINEER documented as of this encounter Functional [...] st Contact Info) Description 03/14/2024 11:45 AM TRACTION POWER ENGINEER Office Visit [facility]-[address] [phone] Marvin Mckeon MD Three [facility] [address] [place] [address] 03/20/2024 11:30 AM TRACTION POWER ENGINEER Office Visit [facility] Family Medicine - [place] 100 [place] [phone] Abiodun Segura II, MD 100 [place], [place] [phone] documented as of this encounter Procedures Procedure [...] COVID-19 Confirmed 12/13/2019 12/13/2019 0 12:34 AM TRACTION POWER ENGINEER documented as of this encounter Care Teams Internal Combustion Engineer Relationship Specialty Start Date End Date Jarred Rod MD PCP - General FAMILY PRACTICE 07/21/15 09/30/20 Shira Shi PA-C [address] [place] [address] PCP - General PHYSICIAN TWISTER IN 10/01/20 11/17/20 Jarred Rod MD [address] [place] [address] 27397 PCP - General FAMILY PRACTICE 11/18/20 12/05/20 Abiodun Segura II, MD [address] [place] [address] PCP - General FAMILY PRACTICE 12/06/20 01/16/21 Jarred Rod MD [address] [place] [address] PCP - General FAMILY PRACTICE 01/17/21 03/08/21 documented as of this encounter
--- OUTSIDE RECORDS SUMMARY | 2024-03-03 01:31 | XMS_ITS | Encounter Summary ---
Author Organization [facility] Address [address] [place] [address]. [place], [place] [address] [place] [address] Care Team Providers Care Email Engineer Name Role Phone Jarred Rod MD Primary Care Provider Unav ailable Shira Shi PA-C Primary Care Provider +1- [phone] Jarred Rod MD Primary Care Provider Unav [...] COVID-19? No / Unsure 01/24/2021 11:10 AM SUPPLIER QUALITY SPECIALIST documented as of this encounter Functional [...] st Contact Info) Description 03/14/2024 11:45 AM SUPPLIER QUALITY SPECIALIST Office Visit [facility] [address] Marvin Mckeon MD Three [facility] [address] [place] [phone] 03/20/2024 11:30 AM SUPPLIER QUALITY SPECIALIST Office Visit [facility] Family Medicine - [address] [address] Abiodun Segura II, MD [address] [place] [phone] documented as of this encounter Visit Diagnoses Not on filedocumented in this encounter Additional Health Concerns Infection Onset Date Last Indicated Resolved Time COVID-19 Rule Out 09/22/2019 09/22/2019 09/24/2019 11:13 PM CDT COVID-19 Rule Out 11/02/2019 11/02/2019 11/03/2019 3:22 PM CDT COVID-19 Rule Out 12/13/2019 12/13/2019 12/14/2019 3:06 PM CDT COVID-19 Confirmed 12/13/2019 12/13/2019 0 12:34 AM SUPPLIER QUALITY SPECIALIST documented as of this encounter Care Teams Email Engineer Relationship Specialty Start Date End Date Jarred Rod MD PCP - General FAMILY PRACTICE 07/21/15 09/30/20 Shira Shi, JESUSC [address] [place] [address] PCP - General PHYSICIAN EXCAVATING MACHINE OPERATOR 10/01/20 11/17/20 Jarred Rod MD [address] [place] [address] 36027 PCP - General FAMILY PRACTICE 11/18/20 12/05/20 Abiodun Segura II, MD [address] [place] [address] PCP - General FAMILY PRACTICE 12/06/20 01/16/21 Jarred Rod MD [address] [place] [address] PCP - General FAMILY PRACTICE 01/17/21 03/08/21 documented as of this encounter
--- OUTSIDE RECORDS SUMMARY | 2024-03-03 01:31 | XMS_ITS | Encounter Summary ---
Author Organization [facility] Address [address] [place] [address]. [place], [place] [address] [place] [address] Care Team Providers Care Dust Collector Treater Name Role Phone Jarred Rod MD Primary Care Provider Unav ailable Shira Shi PA-C Primary Care Provider +1- [phone] Jarred Rod MD Primary Care Provider Unav [...] COVID-19? No / Unsure 01/24/2021 11:10 AM FOOD BEVERAGE SUPERVISOR documented as of this encounter Functional [...] Contact Info) Description 03/14/2024 11:45 AM FOOD BEVERAGE SUPERVISOR Office Visit [facility] [address] Marvin Mckeon MD Three [facility] [address] [place] [phone] 03/20/2024 11:30 AM FOOD BEVERAGE SUPERVISOR Office Visit [facility] Family Medicine - [address] [address] Abiodun Segura II, MD [address] [place] [address] [phone] documented as of this encounter Visit Diagnoses Not on filedocumented in this encounter Additional Health Concerns Infection Onset Date Last Indicated Resolved Time COVID-19 Rule Out 09/22/2019 09/22/2019 09/24/2019 11:13 PM CDT COVID-19 Rule Out 11/02/2019 11/02/2019 11/03/2019 3:22 PM CDT COVID-19 Rule Out 12/13/2019 12/13/2019 12/14/2019 3:06 PM CDT COVID-19 Confirmed 12/13/2019 12/13/2019 0 12:34 AM FOOD BEVERAGE SUPERVISOR documented as of this encounter Care Teams Dust Collector Treater Relationship Specialty Start Date End Date Jarred Rod MD PCP - General FAMILY PRACTICE 07/21/15 09/30/20 Shira Shi, JESUSC [address] [place] [address] PCP - General PHYSICIAN PORTFOLIO DIRECTOR 10/01/20 11/17/20 Jarred Rod MD [address] [place] [address] PCP - General FAMILY PRACTICE 11/18/20 12/05/20 Abiodun Segura II, MD [address] [place] [address] PCP - General FAMILY PRACTICE 12/06/20 01/16/21 Jarred Rod MD [address] [place] [address] PCP - General FAMILY PRACTICE 01/17/21 03/08/21 documented as of this encounter
--- OUTSIDE RECORDS SUMMARY | 2024-03-03 01:31 | XMS_ITS | Encounter Summary ---
Author Organization [facility] Address [address] [place] [address]. [place], [place] [address] [place] [address] Care Team Providers Care Pick Up Worker Name Role Phone Jarred Rod MD Primary Care Provider Unav ailable Shira Shi PA-C Primary Care Provider +1- [phone] Jarred Rod MD Primary Care Provider Unav [...] COVID-19? No / Unsure 01/24/2021 11:10 AM HISTORIOGRAPHY PROFESSOR documented as of this encounter Functional Status [...] st Contact Info) Description 03/14/2024 11:45 AM HISTORIOGRAPHY PROFESSOR Office Visit [facility] [address] Marvin Mckeon MD Three [facility] [address] [place] [phone] 03/20/2024 11:30 AM HISTORIOGRAPHY PROFESSOR Office Visit [facility] Family Medicine - [address] [address] Abiodun Segura II, MD [address] [place] [address] [phone] documented as of this encounter Visit Diagnoses Not on filedocumented in this encounter Additional Health Concerns Infection Onset Date Last Indicated Resolved Time COVID-19 Rule Out 09/22/2019 09/22/2019 09/24/2019 11:13 PM CDT COVID-19 Rule Out 11/02/2019 11/02/2019 11/03/2019 3:22 PM CDT COVID-19 Rule Out 12/13/2019 12/13/2019 12/14/2019 3:06 PM CDT COVID-19 Confirmed 12/13/2019 12/13/2019 0 12:34 AM HISTORIOGRAPHY PROFESSOR documented as of this encounter Care Teams Pick Up Worker Relationship Specialty Start Date End Date Jarred Rod MD PCP - General FAMILY PRACTICE 07/21/15 09/30/20 Shira Shi, JESUSC [address] [place] [address] PCP - General PHYSICIAN GENERAL TECHNICIAN 10/01/20 11/17/20 Jarred Rod MD [address] [place] [address] 45974 PCP - General FAMILY PRACTICE 11/18/20 12/05/20 Abiodun Segura II, MD [address] [place] [address] PCP - General FAMILY PRACTICE 12/06/20 01/16/21 Jarred Rod MD [address] [place] [address]781 PCP - General FAMILY PRACTICE 01/17/21 03/08/21 documented as of this encounter
--- OUTSIDE RECORDS SUMMARY | 2024-03-03 01:31 | XMS_ITS | Encounter Summary ---
Author Organization [facility] Address [address] [place] [address]. [place], [place] [address] [place] [address] Care Team Providers Care Lamp Tester And Inspector Name Role Phone Jarred Rod MD Primary Care Provider Unav ailable Shira Shi PA-C Primary Care Provider +1- [phone] Jarred Rod MD Primary Care Provider Unav [...] COVID-19? No / Unsure 01/24/2021 11:10 AM INSPECTOR ELECTROMECHANICAL documented as of this encounter Functional Status [...] Contact Info) Description 03/14/2024 11:45 AM INSPECTOR ELECTROMECHANICAL Office Visit [facility] [phone] Marvin Mckeon MD Three [facility] [address] [place] [address] 03/20/2024 11:30 AM INSPECTOR ELECTROMECHANICAL Office Visit [facility] Family Medicine - [place] 100 [place] [address] Abiodun Segura II, MD 100 [place], [place] [phone] documented as of this encounter Procedures Procedure [...] COVID-19 Confirmed 12/13/2019 12/13/2019 0 12:34 AM INSPECTOR ELECTROMECHANICAL documented as of this encounter Care Teams Lamp Tester And Inspector Relationship Specialty Start Date End Date Jarred Rod MD PCP - General FAMILY PRACTICE 07/21/15 09/30/20 Shira Shi PA-C [address] [place] [address] PCP - General PHYSICIAN DIE STORAGE CLERK 10/01/20 11/17/20 Jarred Rod MD [address] [place] [address] PCP - General FAMILY PRACTICE 11/18/20 12/05/20 Abiodun Segura II, MD [address] [place] [address] PCP - General FAMILY PRACTICE 12/06/20 01/16/21 Jarred Rod MD [address] [place] [address] PCP - General FAMILY PRACTICE 01/17/21 03/08/21 documented as of this encounter
--- OUTSIDE RECORDS SUMMARY | 2024-03-03 01:31 | XMS_ITS | Encounter Summary ---
Author Organization [facility] Address [address] [place] [address]. [place], [place] [address] [place] [address] Care Team Providers Care Dry Cleaner Name Role Phone Jarred Rod MD Primary Care Provider Unav ailable Shira Shi PA-C Primary Care Provider +1- [phone] Jarred Rod MD Primary Care Provider Unav [...] COVID-19? No / Unsure 01/24/2021 11:10 AM ROOF DESIGNER documented as of this encounter Functional [...] st Contact Info) Description 03/14/2024 11:45 AM ROOF DESIGNER Office Visit [facility] [phone] Marvin Mckeon MD Three [facility] [address] [place] [address] 03/20/2024 11:30 AM ROOF DESIGNER Office Visit [facility] Family Medicine - [place] 100 [place] [address] Abiodun eSgura II, MD 100 [place], [place] [phone] documented as of this encounter Procedures Procedure [...] COVID-19 Confirmed 12/13/2019 12/13/2019 0 12:34 AM ROOF DESIGNER documented as of this encounter Care Teams Dry Cleaner Relationship Specialty Start Date End Date Jarred Rod MD PCP - General FAMILY PRACTICE 07/21/15 09/30/20 Shira Shi PA-C [address] [place] [address] PCP - General PHYSICIAN COMMUNITY HEALTH PROGRAM REPRESENTATIVE 10/01/20 11/17/20 Jarred Rod MD [address] [place] [address]151 PCP - General FAMILY PRACTICE 11/18/20 12/05/20 Abiodun Segura II, MD [address] [place] [address] PCP - General FAMILY PRACTICE 12/06/20 01/16/21 Jarred Rod MD [address] [place] [address] PCP - General FAMILY PRACTICE 01/17/21 03/08/21 documented as of this encounter
--- OUTSIDE RECORDS SUMMARY | 2024-03-03 01:31 | XMS_ITS | Encounter Summary ---
Author Organization [facility] Address [address] [place] [address]. [place], [place] [address] [place] [address] Care Team Providers Care Business Intelligence Engineer Name Role Phone Jarred Rod MD Primary Care Provider Unav ailable Shira Shi PA-C Primary Care Provider +1- [phone] Jarred Rod MD Primary Care Provider Unav [...] COVID-19? No / Unsure 01/24/2021 11:10 AM CLIP BOLTER AND WRAPPER documented as of this encounter Functional [...] Contact Info) Description 03/14/2024 11:45 AM CLIP BOLTER AND WRAPPER Office Visit [facility] [address] Marvin Mckeon MD [facility] [address] [place] [address] 03/20/2024 11:30 AM CLIP BOLTER AND WRAPPER Office Visit [facility] Family Medicine - [place] 100 [place] [phone] Abiodun Segura II, MD 100 [place] [address] documented as of this encounter Procedures Procedure [...] COVID-19 Confirmed 12/13/2019 12/13/2019 0 12:34 AM CLIP BOLTER AND WRAPPER documented as of this encounter Care Teams Business Intelligence Engineer Relationship Specialty Start Date End Date Jarred Rod MD PCP - General FAMILY PRACTICE 07/21/15 09/30/20 Shira Shi PA-C [address] [place] [address]89 PCP - General PHYSICIAN KEY ACCOUNT REPRESENTATIVE 10/01/20 11/17/20 Jarred Rod MD [address] [place] [address] 56798 PCP - General FAMILY PRACTICE 11/18/20 12/05/20 Abiodun Segura II, MD 100 [place] [address] PCP - General FAMILY PRACTICE 12/06/20 01/16/21 Jarred Rod MD 100 [place] [address] PCP - General FAMILY PRACTICE 01/17/21 03/08/21 documented as of this encounter
--- OUTSIDE RECORDS SUMMARY | 2024-03-03 01:31 | XMS_ITS | Encounter Summary ---
Author Organization [facility] Address [address] [place] [address]. [place], [place] [address] [place] [address] Care Team Providers Care Rail Signal Designer Name Role Phone Jarred Rod MD Primary Care Provider Unav ailable Shira Shi PA-C Primary Care Provider +1- [phone] Jarred Rod MD Primary Care Provider Unav [...] COVID-19? No / Unsure 01/24/2021 11:10 AM SLAG MOTOR OPERATOR documented as of this encounter Functional [...] st Contact Info) Description 03/14/2024 11:45 AM SLAG MOTOR OPERATOR Office Visit [facility] [address] Marvin Mckeon MD [facility] [address] [place] [address] 03/20/2024 11:30 AM SLAG MOTOR OPERATOR Office Visit [facility] Family Medicine - [place] 100 [place] [address] Abiodun Segura II, MD 100 [place] [address] documented as of this encounter Procedures Procedure [...] COVID-19 Confirmed 12/13/2019 12/13/2019 0 12:34 AM SLAG MOTOR OPERATOR documented as of this encounter Care Teams Rail Signal Designer Relationship Specialty Start Date End Date Jarred Rod MD PCP - General FAMILY PRACTICE 07/21/15 09/30/20 Shira Shi PA-C [address] [place] [address] PCP - General PHYSICIAN NEUROLOGY PHYSICIAN ASSISTANT 10/01/20 11/17/20 Jarred Rod MD [address] [place] [address]19 PCP - General FAMILY PRACTICE 11/18/20 12/05/20 Abiodun Segura II, MD [address] [place] [address] PCP - General FAMILY PRACTICE 12/06/20 01/16/21 Jarred Rod MD [address] [place] [address]88 PCP - General FAMILY PRACTICE 01/17/21 03/08/21 documented as of this encounter
--- OUTSIDE RECORDS SUMMARY | 2024-03-03 01:31 | XMS_ITS | Encounter Summary ---
Author Organization [facility] Address [address] [place] [address]. [place], [place] [address] [place] [address] Care Team Providers Care Process Development Associate Name Role Phone Jarred Rod MD Primary Care Provider Unav ailable Shira Shi PA-C Primary Care Provider +1- [phone] Jarred Rod MD Primary Care Provider Unav [...] COVID-19? No / Unsure 01/24/2021 11:10 AM BIODIESEL TECHNOLOGY MANAGER documented as of this encounter Functional [...] st Contact Info) Description 03/14/2024 11:45 AM BIODIESEL TECHNOLOGY MANAGER Office Visit [facility] [address] Marvin Mckeon MD [facility] [address] [place] [address] 03/20/2024 11:30 AM BIODIESEL TECHNOLOGY MANAGER Office Visit [facility] Family Medicine - [place] 100 [place] [address] Abiodun Segura II, MD 100 [place], [place] [phone] documented as of this encounter Procedures Procedure [...] COVID-19 Confirmed 12/13/2019 12/13/2019 0 12:34 AM BIODIESEL TECHNOLOGY MANAGER documented as of this encounter Care Teams Process Development Associate Relationship Specialty Start Date End Date Jarred Rod MD PCP - General FAMILY PRACTICE 07/21/15 09/30/20 Shira Shi PA-C [address] [place] [address] PCP - General PHYSICIAN SIDEWALK REPAIRER 10/01/20 11/17/20 Jarred Rod MD [address] [place] [address]349 PCP - General FAMILY PRACTICE 11/18/20 12/05/20 Abiodun Segura II, MD [address] [place] [address]37 PCP - General FAMILY PRACTICE 12/06/20 01/16/21 Jarred Rod MD [address] [place] [address] PCP - General FAMILY PRACTICE 01/17/21 03/08/21 documented as of this encounter
--- OUTSIDE RECORDS SUMMARY | 2024-03-03 01:31 | XMS_ITS | Encounter Summary ---
Author Organization [facility] [place] [facility] Address [address] [place] [address]. [place], [place] [address] [place] [address] Care Team Providers Care Aircraft Stress Analyst Name Role Phone Jarred Rod MD Primary Care Provider Unav ailable Shira Shi PA-C Primary Care Provider +1- [phone] Jarred Rod MD Primary Care Provider Unav [...] COVID-19? No / Unsure 01/24/2021 11:10 AM ICE HOCKEY COACH documented as of this encounter Functional Status [...] Contact Info) Description 03/14/2024 11:45 AM ICE HOCKEY COACH Office Visit [facility] [phone] Marvin Mckeon MD Three [facility] [address] [place] [address] 03/20/2024 11:30 AM ICE HOCKEY COACH Office Visit [facility] Family Medicine - [place] 100 [place] [address] Abiodun Segura II, MD 100 [place], [place] [phone] documented as of this encounter Procedures Procedure [...] COVID-19 Confirmed 12/13/2019 12/13/2019 0 12:34 AM ICE HOCKEY COACH documented as of this encounter Care Teams Aircraft Stress Analyst Relationship Specialty Start Date End Date Jarred Rod MD PCP - General FAMILY PRACTICE 07/21/15 09/30/20 Shira Shi PA-C 100 [place] [address] PCP - General PHYSICIAN NURSING INFORMATION SYSTEMS COORDINATOR 10/01/20 11/17/20 Jarred Rod MD [address] [place] [address]67 PCP - General FAMILY PRACTICE 11/18/20 12/05/20 Aibodun Segura II, MD [address] [place] [address] PCP - General FAMILY PRACTICE 12/06/20 01/16/21 Jarred Rod MD [address] [place] [address] PCP - General FAMILY PRACTICE 01/17/21 03/08/21 documented as of this encounter
--- OUTSIDE RECORDS SUMMARY | 2024-03-03 01:31 | XMS_ITS | Encounter Summary ---
Author Organization [facility] Address [address] [place] [address]. [place] [address] [place] [address] Care Team Providers Care Bindery Machine Operator Name Role Phone Jarred Rod [...] Contact Info) Description 03/14/2024 11:45 AM METAL PATTERN MAKER Office Visit [facility] [address] Marvin Mckeon MD Three [facility] [address] [place] [address] 03/20/2024 11:30 AM METAL PATTERN MAKER Office Visit [facility] Family Medicine - [place] 100 [place] [phone] Abiodun Segura II, MD 100 [place] [address] documented as of this encounter Visit Diagnoses Not on filedocumented in this encounter Care Teams Bindery Machine Operator Relationship Specialty Start Date End Date Jarred Rod MD PCP - General FAMILY PRACTICE 07/21/15 09/30/20 documented as of this encounter
--- OUTSIDE RECORDS SUMMARY | 2024-03-03 01:31 | XMS_ITS | Encounter Summary ---
Author Organization [facility] [place] [facility] Address [address] [place] [address]. [place], [place] [address] [place] [address] Care Team Providers Care Gas Station Clerk Name Role Phone Jarred Rod MD Primary Care Provider Unav ailable Shira Shi PA-C Primary Care Provider +1- [phone] Jarred Rod MD Primary Care Provider Unav [...] COVID-19? No / Unsure 01/24/2021 11:10 AM MERCHANDISE FLOW TEAM MEMBER documented as of this encounter Functional Status [...] st Contact Info) Description 03/14/2024 11:45 AM MERCHANDISE FLOW TEAM MEMBER Office Visit [facility] [address] Marvin Mckeon MD Three [facility] [address] [place] [phone] 03/20/2024 11:30 AM MERCHANDISE FLOW TEAM MEMBER Office Visit [facility] Family Medicine - [address] [address] Abiodun Segura II, MD [address] [place] [phone] documented as of this encounter Visit Diagnoses Not on filedocumented in this encounter Additional Health Concerns Infection Onset Date Last Indicated Resolved Time COVID-19 Rule Out 09/22/2019 09/22/2019 09/24/2019 11:13 PM CDT COVID-19 Rule Out 11/02/2019 11/02/2019 11/03/2019 3:22 PM CDT COVID-19 Rule Out 12/13/2019 12/13/2019 12/14/2019 3:06 PM CDT COVID-19 Confirmed 12/13/2019 12/13/2019 0 12:34 AM MERCHANDISE FLOW TEAM MEMBER documented as of this encounter Care Teams Gas Station Clerk Relationship Specialty Start Date End Date Jarred Rod MD PCP - General FAMILY PRACTICE 07/21/15 09/30/20 Shira Shi, JESUSC [address] [place] [address] PCP - General PHYSICIAN SCHOOL CLEANER 10/01/20 11/17/20 Jarred Rod MD [address] [place] [address]681 PCP - General FAMILY PRACTICE 11/18/20 12/05/20 Abiodun Segura II, MD [address] [place] [address] PCP - General FAMILY PRACTICE 12/06/20 01/16/21 Jarred Rod MD [address] [place] [address] 27987 PCP - General FAMILY PRACTICE 01/17/21 03/08/21 documented as of this encounter
--- OUTSIDE RECORDS SUMMARY | 2024-03-03 01:31 | XMS_ITS | Encounter Summary ---
Author Organization [facility] Address [address] [place] [address]. [place], [place] [address] [place] [address] Care Team Providers Care Neurophysiologist Name Role Phone Jarred Rod MD Primary Care Provider Unav ailable Shira Shi PA-C Primary Care Provider +1- [phone] Jarred Rod MD Primary Care Provider Unav [...] COVID-19? No / Unsure 01/24/2021 11:10 AM BRICK LOADER documented as of this encounter Functional [...] st Contact Info) Description 03/14/2024 11:45 AM BRICK LOADER Office Visit [facility] [address] Marvin Mckeon MD Three [facility] [address] [place] [address] [phone] 03/20/2024 11:30 AM BRICK LOADER Office Visit [facility] Family Medicine - [address] [address] Abiodun Segura II, MD [address] [place] [address] [phone] documented as of this encounter Visit Diagnoses Not on filedocumented in this encounter Additional Health Concerns Infection Onset Date Last Indicated Resolved Time COVID-19 Rule Out 09/22/2019 09/22/2019 09/24/2019 11:13 PM CDT COVID-19 Rule Out 11/02/2019 11/02/2019 11/03/2019 3:22 PM CDT COVID-19 Rule Out 12/13/2019 12/13/2019 12/14/2019 3:06 PM CDT COVID-19 Confirmed 12/13/2019 12/13/2019 0 12:34 AM BRICK LOADER documented as of this encounter Care Teams Neurophysiologist Relationship Specialty Start Date End Date Jarred Rod MD PCP - General FAMILY PRACTICE 07/21/15 09/30/20 Shira Shi, JESUSC [address] [place] [address]36 PCP - General PHYSICIAN OFFICE SERVICE COORDINATOR 10/01/20 11/17/20 Jarred Rod MD [address] [place] [address] 45922 PCP - General FAMILY PRACTICE 11/18/20 12/05/20 Abiodun Segura II, MD [address] [place] [address] PCP - General FAMILY PRACTICE 12/06/20 01/16/21 Jarred Rod MD [address] [place] [address] 11533 PCP - General FAMILY PRACTICE 01/17/21 03/08/21 documented as of this encounter
--- OUTSIDE RECORDS SUMMARY | 2024-03-03 01:31 | XMS_ITS | Encounter Summary ---
Author Organization [facility] Address [address] [place] [address]. [place], [place] [address] [place] [address] Care Team Providers Care Demand Planning Manager Name Role Phone Jarred Rod MD Primary Care Provider Unav ailable Shira Shi PA-C Primary Care Provider +1- [phone] Jarred Rod MD Primary Care Provider Unav [...] No / Unsure 01/24/2021 11:10 AM PIT OPERATOR documented as of this encounter Functional [...] Contact Info) Description 03/14/2024 11:45 AM PIT OPERATOR Office Visit [facility] [address] Marvin Mckeon MD Three [facility] [address] [place] [address] [phone] 03/20/2024 11:30 AM PIT OPERATOR Office Visit [facility] Family Medicine - [address] [address] Abiodun Segura II, MD [address] [place] [address] [phone] documented as of this encounter Visit Diagnoses Not on filedocumented in this encounter Additional Health Concerns Infection Onset Date Last Indicated Resolved Time COVID-19 Rule Out 09/22/2019 09/22/2019 09/24/2019 11:13 PM CDT COVID-19 Rule Out 11/02/2019 11/02/2019 11/03/2019 3:22 PM CDT COVID-19 Rule Out 12/13/2019 12/13/2019 12/14/2019 3:06 PM CDT COVID-19 Confirmed 12/13/2019 12/13/2019 0 12:34 AM PIT OPERATOR documented as of this encounter Care Teams Demand Planning Manager Relationship Specialty Start Date End Date Jarred Rod MD PCP - General FAMILY PRACTICE 07/21/15 09/30/20 Shira Shi, JESUSC [address] [place] [address] PCP - General PHYSICIAN DIRECTOR INTERNAL CONTROL 10/01/20 11/17/20 Jarred Rod MD [address] [place] [address] PCP - General FAMILY PRACTICE 11/18/20 12/05/20 Abiodun Segura II, MD [address] [place] [address] PCP - General FAMILY PRACTICE 12/06/20 01/16/21 Jarred Rod MD [address] [place] [address] PCP - General FAMILY PRACTICE 01/17/21 03/08/21 documented as of this encounter
--- OUTSIDE RECORDS SUMMARY | 2024-03-03 01:31 | XMS_ITS | Encounter Summary ---
Author Organization [facility] Address [address] [place] [address]. [place], [place] [address] [place] [address] Care Team Providers Care Software Engineering Specialist Name Role Phone Jarred Rod MD Primary Care Provider Unav ailable Shira Shi PA-C Primary Care Provider +1- [phone] Jarred Rod MD Primary Care Provider Unav [...] COVID-19? No / Unsure 01/24/2021 11:10 AM OSCILLOGRAPH TECHNICIAN documented as of this encounter Functional Status documented as of this encounter Mental Status * Question Answer Entry Date Author Status Because of a physical, mental, or emotional condition, do you have serious difficulty concentrating, remembering, or making decisions? No 08/12/2019 3:00 AM CDT hSelby Martinez RN Active documented in this encounter Plan of Treatment Upcoming Encounters Date Type Department Care Team (Late st Contact Info) Description 03/14/2024 11:45 AM OSCILLOGRAPH TECHNICIAN Office Visit [facility] [address] Marvin Mckeon MD Three [facility] [address] [place] [address] [phone] 03/20/2024 11:30 AM OSCILLOGRAPH TECHNICIAN Office Visit [facility] Family Medicine - [address] [address] Abiodun Segura II, MD [address] [place] [address] [phone] documented as of this encounter Visit Diagnoses Not on filedocumented in this encounter Additional Health Concerns Infection Onset Date Last Indicated Resolved Time COVID-19 Rule Out 09/22/2019 09/22/2019 09/24/2019 11:13 PM CDT COVID-19 Rule Out 11/02/2019 11/02/2019 11/03/2019 3:22 PM CDT COVID-19 Rule Out 12/13/2019 12/13/2019 12/14/2019 3:06 PM CDT COVID-19 Confirmed 12/13/2019 12/13/2019 0 12:34 AM OSCILLOGRAPH TECHNICIAN documented as of this encounter Care Teams Software Engineering Specialist Relationship Specialty Start Date End Date Jarred Rod MD PCP - General FAMILY PRACTICE 07/21/15 09/30/20 Shira Shi, JESUSC [address] [place] [address] PCP - General PHYSICIAN PEARL PELLER 10/01/20 11/17/20 Jarred Rod MD [address] [place] [address] PCP - General FAMILY PRACTICE 11/18/20 12/05/20 Abiodun Segura II, MD [address] [place] [address] PCP - General FAMILY PRACTICE 12/06/20 01/16/21 Jarred Rod MD [address] [place] [address] PCP - General FAMILY PRACTICE 01/17/21 03/08/21 documented as of this encounter
--- OUTSIDE RECORDS SUMMARY | 2024-03-03 01:31 | XMS_ITS | Encounter Summary ---
Author Organization [facility] Address [address] [place] [address]. [place], [place] [address] [place] [address] Care Team Providers Care Hot Plate Plywood Press Operator Name Role Phone Jarred Rod MD Primary Care Provider Unav ailable Shira Shi PA-C Primary Care Provider +1- [phone] Jarred Rod MD Primary Care Provider Unav [...] COVID-19? No / Unsure 01/24/2021 11:10 AM BRAKE TESTER documented as of this encounter Functional [...] st Contact Info) Description 03/14/2024 11:45 AM BRAKE TESTER Office Visit [facility] [phone] Marvin Mckeon MD Three [facility] [address] [place] [address] 03/20/2024 11:30 AM BRAKE TESTER Office Visit [facility] Family Medicine - [place] [address] [place] [address] Abiodun Segura II, MD 100 [place], [place] [phone] documented as of this encounter Procedures Procedure [...] COVID-19 Confirmed 12/13/2019 12/13/2019 0 12:34 AM BRAKE TESTER documented as of this encounter Care Teams Hot Plate Plywood Press Operator Relationship Specialty Start Date End Date Jarred Rod MD PCP - General FAMILY PRACTICE 07/21/15 09/30/20 Shira Shi PA-C [address] [place] [address] PCP - General PHYSICIAN THERAPY AIDE 10/01/20 11/17/20 Jarred Rod MD [address] [place] [address] PCP - General FAMILY PRACTICE 11/18/20 12/05/20 Abiodun Segura II, MD [address] [place] [address] PCP - General FAMILY PRACTICE 12/06/20 01/16/21 Jarred Rod MD [address] [place] [address] PCP - General FAMILY PRACTICE 01/17/21 03/08/21 documented as of this encounter
--- OUTSIDE RECORDS SUMMARY | 2024-03-03 01:31 | XMS_ITS | Encounter Summary ---
Author Organization [facility] Address [address] [place] [address]. [place], [place] [address] [place] [address] Care Team Providers Care Shower Maid Name Role Phone Jarred Rod MD Primary Care Provider Unav ailable Shira Shi PA-C Primary Care Provider +1- [phone] Jarred Rod MD Primary Care Provider Unav [...] COVID-19? No / Unsure 01/24/2021 11:10 AM FOOT PRESS OPERATOR documented as of this encounter Functional [...] st Contact Info) Description 03/14/2024 11:45 AM FOOT PRESS OPERATOR Office Visit [facility]-[address] [phone] Marvin Mckeon MD Three [facility] [address] [place] [address] 03/20/2024 11:30 AM FOOT PRESS OPERATOR Office Visit [facility] Family Medicine - [address] [place] [address] Abiodun Segura II, MD 100 [place], [place] [phone] documented as of this encounter Procedures Procedure [...] COVID-19 Confirmed 12/13/2019 12/13/2019 0 12:34 AM FOOT PRESS OPERATOR documented as of this encounter Care Teams Shower Maid Relationship Specialty Start Date End Date Jarred Rod MD PCP - General FAMILY PRACTICE 07/21/15 09/30/20 Shira Shi PA-C [address] [place] [address] PCP - General PHYSICIAN POTATO CHIP PACKAGING MACHINE OPERATOR 10/01/20 11/17/20 Jarred Rod MD [address] [place] [address] PCP - General FAMILY PRACTICE 11/18/20 12/05/20 Abiodun Segura II, MD [address] [place] [address] PCP - General FAMILY PRACTICE 12/06/20 01/16/21 Jarred Rod MD [address] [place] [address] PCP - General FAMILY PRACTICE 01/17/21 03/08/21 documented as of this encounter
--- OUTSIDE RECORDS SUMMARY | 2024-03-03 01:31 | XMS_ITS | Encounter Summary ---
Author Organization [facility] Address [address] [place] [address]. [place], [place] [address] [place] [address] Care Team Providers Care Machine Setter Supervisor Name Role Phone Jarred Rod MD Primary Care Provider Unav ailable Shira Shi PA-C Primary Care Provider +1- [phone] Jarred Rod MD Primary Care Provider Unav [...] / Unsure 01/24/2021 11:10 AM HIGH SCHOOL FOOTBALL COACH documented as of this encounter Functional [...] Info) Description 03/14/2024 11:45 AM HIGH SCHOOL FOOTBALL COACH Office Visit [facility] [address] Marvin Mckeon MD Three [facility] [address] [place] [address] [phone] 03/20/2024 11:30 AM HIGH SCHOOL FOOTBALL COACH Office Visit [facility] Family Medicine - [address] [address] Abiodun Segura II, MD [address] [place] [address] [phone] documented as of this encounter Visit Diagnoses Not on filedocumented in this encounter Additional Health Concerns Infection Onset Date Last Indicated Resolved Time COVID-19 Rule Out 09/22/2019 09/22/2019 09/24/2019 11:13 PM CDT COVID-19 Rule Out 11/02/2019 11/02/2019 11/03/2019 3:22 PM CDT COVID-19 Rule Out 12/13/2019 12/13/2019 12/14/2019 3:06 PM CDT COVID-19 Confirmed 12/13/2019 12/13/2019 0 12:34 AM HIGH SCHOOL FOOTBALL COACH documented as of this encounter Care Teams Machine Setter Supervisor Relationship Specialty Start Date End Date Jarred Rod MD PCP - General FAMILY PRACTICE 07/21/15 09/30/20 Shira Shi, JESUSC [address] [place] [address] PCP - General PHYSICIAN SCHOOL PLANT CONSULTANT 10/01/20 11/17/20 Jarred Rod MD [address] [place] [address]458 PCP - General FAMILY PRACTICE 11/18/20 12/05/20 Abiodun Segura II, MD [address] [place] [address] PCP - General FAMILY PRACTICE 12/06/20 01/16/21 Jarred Rod MD [address] [place] [address]69 PCP - General FAMILY PRACTICE 01/17/21 03/08/21 documented as of this encounter
--- OUTSIDE RECORDS SUMMARY | 2024-03-03 01:31 | XMS_ITS | Encounter Summary ---
Author Organization [facility] Address [address] [place] [address]. [place], [place] [address] [place] [address] Care Team Providers Care Tax Collection Coordinator Name Role Phone Jarred Rod MD Primary Care Provider Unav ailable Shira Shi PA-C Primary Care Provider +1- [phone] Jarred Rod MD Primary Care Provider Unav [...] COVID-19? No / Unsure 01/24/2021 11:10 AM REGISTERED NURSE TEACHER documented as of this encounter Functional [...] st Contact Info) Description 03/14/2024 11:45 AM REGISTERED NURSE TEACHER Office Visit [facility]-[address] [phone] Marvin Mckeon MD Three [facility] [address] [place] [address] 03/20/2024 11:30 AM REGISTERED NURSE TEACHER Office Visit [facility] Family Medicine - [place] 100 [place] [address] Abiodun Segura II, MD 100 [place], [place] [phone] documented as of this encounter Procedures Procedure [...] COVID-19 Confirmed 12/13/2019 12/13/2019 0 12:34 AM REGISTERED NURSE TEACHER documented as of this encounter Care Teams Tax Collection Coordinator Relationship Specialty Start Date End Date Jarred Rod MD PCP - General FAMILY PRACTICE 07/21/15 09/30/20 Shira Shi PA-C [address] [place] [address] PCP - General PHYSICIAN UNIT CONTROL WORKER 10/01/20 11/17/20 Jarred Rod MD [address] [place] [address] PCP - General FAMILY PRACTICE 11/18/20 12/05/20 Abiodun Segura II, MD [address] [place] [address] PCP - General FAMILY PRACTICE 12/06/20 01/16/21 Jarred Rod MD [address] [place] [address]642 PCP - General FAMILY PRACTICE 01/17/21 03/08/21 documented as of this encounter
--- OUTSIDE RECORDS SUMMARY | 2024-03-03 01:31 | XMS_ITS | Encounter Summary ---
Author Organization [facility] Address [address] [place] [address]. [place], [place] [address] [place] [address] Care Team Providers Care Sorter Pricer Name Role Phone Jarred Rod MD Primary Care Provider Unav ailable Shira Shi PA-C Primary Care Provider +1- [phone] Jarred Rod MD Primary Care Provider Unav [...] COVID-19? No / Unsure 01/24/2021 11:10 AM HOTEL CLERK documented as of this encounter Functional [...] st Contact Info) Description 03/14/2024 11:45 AM HOTEL CLERK Office Visit [facility] [address] Marvin Mckeon MD Three [facility] [address] [place] [address] [phone] 03/20/2024 11:30 AM HOTEL CLERK Office Visit [facility] Family Medicine - [address] [address] Abiodun Segura II, MD [address] [place] [address] [phone] documented as of this encounter Visit Diagnoses Not on filedocumented in this encounter Additional Health Concerns Infection Onset Date Last Indicated Resolved Time COVID-19 Rule Out 09/22/2019 09/22/2019 09/24/2019 11:13 PM CDT COVID-19 Rule Out 11/02/2019 11/02/2019 11/03/2019 3:22 PM CDT COVID-19 Rule Out 12/13/2019 12/13/2019 12/14/2019 3:06 PM CDT COVID-19 Confirmed 12/13/2019 12/13/2019 0 12:34 AM HOTEL CLERK documented as of this encounter Care Teams Sorter Pricer Relationship Specialty Start Date End Date Jarred Rod MD PCP - General FAMILY PRACTICE 07/21/15 09/30/20 Shira Shi, JESUSC [address] [place] [address] PCP - General PHYSICIAN CASING IN LINE SETTER 10/01/20 11/17/20 Jarred Rod MD [address] [place] [address]87 PCP - General FAMILY PRACTICE 11/18/20 12/05/20 Abiodun Segura II, MD [address] [place] [address] PCP - General FAMILY PRACTICE 12/06/20 01/16/21 Jarred Rod MD [address] [place] [address] PCP - General FAMILY PRACTICE 01/17/21 03/08/21 documented as of this encounter
--- OUTSIDE RECORDS SUMMARY | 2024-03-03 01:31 | XMS_ITS | Encounter Summary ---
Author Organization [facility] Address [address] [place] [address]. [place], [place] [address] [place] [address] Care Team Providers Care Accredited Pharmacy Technician Name Role Phone Jarred Rod MD Primary Care Provider Unav ailable Shira Shi PA-C Primary Care Provider +1- [phone] Jarred Rod MD Primary Care Provider Unav [...] COVID-19? No / Unsure 01/24/2021 11:10 AM FIRST BREAKER FEEDER documented as of this encounter Functional Status [...] Contact Info) Description 03/14/2024 11:45 AM FIRST BREAKER FEEDER Office Visit [facility] [address] Marvin Mckeon MD Three [facility] [address] [place] [address] [phone] 03/20/2024 11:30 AM FIRST BREAKER FEEDER Office Visit [facility] Family Medicine - [address] [address] Abiodun Segura II, MD [address] [place] [address] [phone] documented as of this encounter Visit Diagnoses Not on filedocumented in this encounter Additional Health Concerns Infection Onset Date Last Indicated Resolved Time COVID-19 Rule Out 09/22/2019 09/22/2019 09/24/2019 11:13 PM CDT COVID-19 Rule Out 11/02/2019 11/02/2019 11/03/2019 3:22 PM CDT COVID-19 Rule Out 12/13/2019 12/13/2019 12/14/2019 3:06 PM CDT COVID-19 Confirmed 12/13/2019 12/13/2019 0 12:34 AM FIRST BREAKER FEEDER documented as of this encounter Care Teams Accredited Pharmacy Technician Relationship Specialty Start Date End Date Jarred Rod MD PCP - General FAMILY PRACTICE 07/21/15 09/30/20 Shira Shi, JESUSC [address] [place] [address] PCP - General PHYSICIAN GUEST RELATIONS AGENT 10/01/20 11/17/20 Jarred Rod MD [address] [place] [address] PCP - General FAMILY PRACTICE 11/18/20 12/05/20 Abiodun Segura II, MD [address] [place] [address] PCP - General FAMILY PRACTICE 12/06/20 01/16/21 Jarred Rod MD [address] [place] [address]325 PCP - General FAMILY PRACTICE 01/17/21 03/08/21 documented as of this encounter
--- OUTSIDE RECORDS SUMMARY | 2024-03-03 01:31 | XMS_ITS | Encounter Summary ---
Author Organization [facility] Address [facility] [place] [address] [place] [address] Care Team Providers Care Agent Spa Desk Name Role Phone Jarred Rod MD Primary Care Provider Unav ailable Reason for Referral * Imaging (Routine) - Closed Specialty Diagnoses / Procedures Referred By Contac t Referred To Contact RADIOLOGY Diagnoses Complex cyst of right ovary Procedures US PELVIC NON OB COMP TA+TV Jarred Rdo MD Referral ID Status Reason Start Date Expiration Date Visits Re quested Visits Authorized [id number] Closed 04/11/2019 05/10/2020 1 1 * Imaging (Routine) - Closed Specialty Diagnoses / Procedures Referred By Contac t Referred To Contact RADIOLOGY Diagnoses Solitary pulmonary nodule Procedures CT CHEST W Jarred Calderon MD Referral ID Status Reason Start Date Expiration Date Visits Re quested Visits Authorized [id number] Closed 04/11/2019 05/10/2020 1 1 Reason for Visit * Imaging (Routine) - Closed Specialty Diagnoses / Procedures Referred By Lyla t Referred To Contact RADIOLOGY Diagnoses Solitary pulmonary nodule Procedures CT CHEST W Jarred Calderon MD Referral ID Status Reason Start Date Expiration Date Visits Re quested Visits Authorized [id number] Closed 04/11/2019 05/10/2020 1 1 Encounter Details Date Type Department Care Team (Latest Contact Info) Description 04/28/2019 7:46 AM CDT - 04/28/2019 11:59 PM CDT Hospital Encounter [facility] [place] [address] Jarred Rod MD Discharge Disposition: Home or [...] st Contact Info) Description 03/14/2024 11:45 AM MINERAL WOOL INSULATION SUPERVISOR Office Visit [facility]-[address] [address] Marvin Mckeon MD Three [facility] [address] [place] [address] 03/20/2024 11:30 AM MINERAL WOOL INSULATION SUPERVISOR Office Visit [facility] Family Medicine - [place] 100 [place] [phone] Abiodun Segura II, MD 100 [place] [address] documented as of this encounter Procedures Procedure [...] - 1.10 mg/dL 04/28/2019 8:25 AM CDT [facility] ORDERS INTERFACE 04/28/2019 7:20 AM CDT Jarred Rod MD LABORATORY Final Resul t [facility] ORDERS INTERFACE US documented in this [...] mLs documented in this encounter Care Teams Agent Spa Desk Relationship Specialty Start Date End Date Jarred Rod MD PCP - General FAMILY PRACTICE 07/21/15 09/30/20 documented as of this encounter
--- OUTSIDE RECORDS SUMMARY | 2024-03-03 01:31 | XMS_ITS | Encounter Summary ---
Author Organization [facility] Address [address] [place] [address]. [place] [address] [place] [address] Care Team Providers Care Mattress Stuffer Name Role Phone Jarred Fernández MD Primary Care Provider Unav ailable Reason for Referral * Imaging (Emergency) - Closed Specialty Diagnoses / Procedures Referred By Contac t Referred To Contact RADIOLOGY Procedures US PELVIC TV NON OB Rafal Veloz MD Referral ID Status Reason Start Date Expiration Date Visits Re quested Visits Authorized [id number] Closed 07/02/2019 08/01/2020 1 1 * Imaging (Emergency) - Closed Specialty Diagnoses / Procedures Referred By Contac t Referred To Contact RADIOLOGY Procedures CT ABD+PEL W IV CON ONLY Rafal Veloz MD Referral ID Status Reason Start Date Expiration Date Visits Re quested Visits Authorized [id number] Closed 07/02/2019 08/01/2020 1 1 Reason for Visit * Reason Comments Abdominal Pain Back Pain Urinary Symptoms Encounter Details Date Type Department Care Team (Late st Contact Info) Description 07/02/2019 12:12 PM CDT - 07/02/2019 6:58 PM CDT Emergency [facility] [place] [address] EgsiRafal zurita MD Shafer, Jeffery Scott, MD [address] [address] Abdominal Pain; Back Pain; Urinary Symptoms Discharge [...] Care Everywhere. * Kidney Stones Discharge Instructions (Swedish) documented in this encounter Medications at Time [...] called in for imaging, spoke with Ruma [phone] * Kvng Lewis MD - 07/02/2019 4:28 [...] with him. She declines pain medication. Kvng Lewis MD 07/03/192050 * Rafal Veloz MD - 07/02/2019 12:41 PM CDT [place], [place] EMERGENCY DEPARTMENT ENCOUNTER Chief Complaint Chief Complaint Patient presents with ??? Abdominal Pain ??? Back Pain ??? Urinary Symptoms History of Present Illness Provider at Bedside Date/Time Event User Comments 07/02/19 1213 Provider at Bedside Assessing Patient RAFAL VELOZ History provided by: Patient senior network systems engineer used: No 49-year-old female with a pmh of DM and HTN who presents to the ED for evaluation of right lower quadrant abdominal pain/pressure and dysuria for 5 days. Patient was sent by AUTOMOBILE MECHANIC HELPER Dr. Hair for further investigating. Patient reports [...] Contact Info) Description 03/14/2024 11:45 AM HOSPITAL SECURITY OFFICER Office Visit [facility] [address] Marvin Mckeon MD Three [facility] [address] [place] [address] [phone] 03/20/2024 11:30 AM HOSPITAL SECURITY OFFICER Office Visit [facility] Family Medicine - [place] [address] [place] [phone] Abiodun Segura II, MD [address] [place] [address] documented as of this encounter Procedures Procedure [...] for 5 days. Patient was sent by AUTOMOBILE MECHANIC HELPER Dr. Hair for further investigating. Patient reports [...] dysuria for 5 days. Patient wassent by AUTOMOBILE MECHANIC HELPER Dr. Hair for further investigating. Patient reports [...] URINE CLEAN CATCH 07/02/2019 1:27 PM CDT [facility] COLOR (U) YELLOW 07/02/2019 1:49 PM CDT [facility] TRANSPARENCY CLOUDY 07/02/2019 1:49 PM CDT [facility] SPECIFIC GRAVITY (U) 1.012 1.001 - 1.030 07/02/2019 1:49 PM CDT [facility] U PH 5.0 5.0 - 9.0 07/02/2019 1:49 PM CDT [facility] LEUKOCYTES (U) NEGATIVE NEGATIVE 07/02/2019 1:49 PM CDT [facility] NITRITES NEGATIVE NEGATIVE 07/02/2019 1:49 PM CDT [facility] PROTEIN (U) 100(H) <30 MG/DL 07/02/2019 1:49 PM T [facility] URINE GLUCOSE NEGATIVE NEGATIVE MG/DL 07/02/2019 1:49 PM CDT [facility] KETONES MG/DL (U) NEGATIVE NEGATIVE MG/DL 07/02/2019 1:49 PM T [facility] UROBILINOGEN NEGATIVE NEGATIVE MG/DL 07/02/2019 1:49 PM CDT [facility] BILIRUBIN (U) NEGATIVE NEGATIVE MG/DL 07/02/2019 1:49 PM CDT [facility] BLOOD (U) SMALL(A) NEGATIVE 07/02/2019 1:49 PM T [facility] CULTURE & SENSITIVITY INDICATED? CULTURE IS NOT INDICATED 07/02/2019 1:49 PM CDT [facility] SQUAMOUS EPITHELIALS MANY /LPF 07/02/2019 1:49 PM CDT [facility] WBC/HPF 1 <6 /HPF 07/02/2019 1:49 PM CDT [facility] RBC/HPF 1 <6 /HPF 07/02/2019 1:49 PM CDT [facility] BACTERIA (U) RARE(A) NONE /HPF 07/02/2019 1:49 PM CDT [facility] URINE SPECIMEN OBTAINED BY CLEAN CATCH PROCEDURE / Unknown 07/02/2019 1:31 PM CDT us Rafal Veloz MD URINE ORDERABLES Final Result [facility] [address] [place] [address], [place] [phone] * (ABNORMAL) BASIC METABOLIC PANEL (07/02/2019 1:19 PM CDT) GLUCOSE 128(H) 70 - 99 MG/DL 07/02/2019 1:51 PM CDT [facility] BUN 18 7 - 18 MG/DL 07/02/2019 1:51 PM CDT [facility] CREATININE S/P/B 1.00 0.55 - 1.02 MG/DL 07/02/2019 1:51 PM CDT [facility] SODIUM S/P/B 137 136 - 145 MMOL/L 07/02/2019 1:51 PM CDT [facility] POTASSIUM S/P/B 4.2 3.5 - 5.1 MMOL/L 07/02/2019 1:51 PM CDT [facility] CHLORIDE S/P/B 107 100 - 108 MMOL/L 07/02/2019 1:51 PM CDT [facility] CO2 27.5 21 - 32 MMOL/L 07/02/2019 1:51 PM CDT [facility] CALCIUM S/P/B 8.5 8.5 - 10.1 MG/DL 07/02/2019 1:51 PM CDT [facility] ANION GAP 2.5(L) 5 - 15 MMOL/L 07/02/2019 1:51 PM CDT [facility] BUN CREATININE RATIO 18.0 6 - 26 07/02/2019 1:51 PM CDT [facility] EGFR NON-AFR. AMER. 67(L) >90 ML/MIN/1.7 3 M2 07/02/2019 1:51 PM CDT [facility] EGFR AFR. AMER. 77(L) >90 ML/MIN/1.7 3 M2 07/02/2019 1:51 PM CDT [facility] Comment: NOTE: eGFR is not calculated for patients <18 years of age. This is an estimated GFR (CKD EPI) and should not be used for calculating drug doses. 07/02/2019 1:19 PM CDT Rafal Veloz MD LABORATORY Final Result [facility] [address] [place] [address], [place] [phone] * (ABNORMAL) CBC W/DIFF AUTOMATED (07/02/2019 1:19 PM CDT) WBC 9.4 4.5 - 11.0 x10'3/uL 07/02/2019 1:33 PM CDT [facility] RBC 3.83(L) 4.20 - 5.40 x10'6/uL 07/02/2019 1:33 PM CDT [facility] HGB 11.8(L) 12.0 - 16.0 G/DL 07/02/2019 1:33 PM CDT [facility] HCT 34.8(L) 38.0 - 48.0 % 07/02/2019 1:33 PM CDT [facility] MCV 90.9 80.0 - 94.0 FL 07/02/2019 1:33 PM CDT [facility] MCH 30.8 27.0 - 31.0 PG 07/02/2019 1:33 PM CDT [facility] MCHC 33.9 32.0 - 36.0 G/DL 07/02/2019 1:33 PM CDT [facility] RDW 12.8 11.5 - 14.5 % 07/02/2019 1:33 PM CDT [facility] PLT 269 130 - 400 x10'3/uL 07/02/2019 1:33 PM CDT [facility] MPV 11.2 9.3 - 12.2 FL 07/02/2019 1:33 PM CDT [facility] DIFFERENTIAL TYPE AUTOMATED DIFFERENTIAL 07/02/2019 1:33 PM CDT [facility] NEUTROPHILS % 65.8 % 07/02/2019 1:33 PM CDT [facility] LYMPHOCYTES % 28.8 % 07/02/2019 1:33 PM CDT [facility] MONOCYTES % 4.1 % 07/02/2019 1:33 PM CDT [facility] EOSINOPHILS 0.5 % 07/02/2019 1:33 PM CDT [facility] BASOPHILS 0.6 % 07/02/2019 1:33 PM CDT [facility] IMMATURE GRANS % 0.2 % 07/02/19 20 1:33 PM CDT [facility] ABS. NEUTROPHILS TOTAL 6.17 1.80 - 7.70 x10'3/uL 07/02/2019 1:33 PM CDT [facility] ABS. LYMPHOCYTES 2.70 1.00 - 4.80 x10'3/uL 07/02/2019 1:33 PM CDT [facility] ABS. MONOCYTES 0.38 0.24 - 0.86 x10'3/uL 07/02/2019 1:33 PM CDT [facility] ABS. EOSINOPHILS 0.05 0.04 - 0.36 x10'3/uL 07/02/2019 1:33 PM CDT [facility] ABS. BASOPHILS 0.06 0.01 - 0.08 x10'3/uL 07/02/2019 1:33 PM CDT [facility] ABS. IMMATURE GRANULOCYTES 0.02 0.00 - 0.49 x10'3/uL 07/02/2019 1:33 PM CDT [facility] 07/02/2019 1:19 PM CDT Rafal Veloz MD LABORATORY Final Result [facility] [address] [place] [address], documented in this encounter Visit Diagnoses Diagnosis [...] RDMS) documented in this encounter Care Teams Mattress Stuffer Relationship Specialty Start Date End Date Jarred Fernández MD PCP - General FAMILY PRACTICE 07/21/15 09/30/20 documented as of this encounter
--- OUTSIDE RECORDS SUMMARY | 2024-03-03 01:31 | XMS_ITS | Encounter Summary ---
Author Organization [facility] Address [address] [place] [address]. [place], [place] [address] [place] [address] Care Team Providers Care Chairman President And Chief Executive Officer Name Role Phone Jarred Rod MD Primary Care Provider Unav ailable Shira Shi PA-C Primary Care Provider +1- [phone] Jarred Rod MD Primary Care Provider Unav [...] COVID-19? No / Unsure 01/24/2021 11:10 AM CLINICAL MEDICAL TRANSCRIPTIONIST documented as of this encounter Functional Status [...] Contact Info) Description 03/14/2024 11:45 AM CLINICAL MEDICAL TRANSCRIPTIONIST Office Visit [facility]-[address] [phone] Marvin Mckeon MD Three [facility] [address] [place] [address] 03/20/2024 11:30 AM CLINICAL MEDICAL TRANSCRIPTIONIST Office Visit [facility] Family Medicine - [place] [address] [place] [phone] Abiodun Segura II, MD [address] [place], [place] [phone] documented as of this encounter Procedures Procedure [...] COVID-19 Confirmed 12/13/2019 12/13/2019 0 12:34 AM CLINICAL MEDICAL TRANSCRIPTIONIST documented as of this encounter Care Teams Chairman President And Chief Executive Officer Relationship Specialty Start Date End Date Jarred Rod MD PCP - General FAMILY PRACTICE 07/21/15 09/30/20 Shira Shi PA-C [address] [place] [address] PCP - General PHYSICIAN WAFER PRODUCTION WORKER 10/01/20 11/17/20 Jarred Rod MD [address] [place] [address] PCP - General FAMILY PRACTICE 11/18/20 12/05/20 Abiodun Segura II, MD [address] [place] [address] PCP - General FAMILY PRACTICE 12/06/20 01/16/21 Jarred Rod MD [address] [place] [address] PCP - General FAMILY PRACTICE 01/17/21 03/08/21 documented as of this encounter
--- OUTSIDE RECORDS SUMMARY | 2024-03-03 01:31 | XMS_ITS | Encounter Summary ---
Author Organization [facility] Address [address] [place] [address]. [place], [place] [address] [place] [address] Care Team Providers Care Auxiliary Power Equipment Operator Name Role Phone Jarred Rod MD Primary Care Provider Unav ailable Shira Shi PA-C Primary Care Provider +1- [phone] Jarred Rod MD Primary Care Provider Unav [...] COVID-19? No / Unsure 01/24/2021 11:10 AM TILE LAYER HELPER documented as of this encounter Functional [...] Info) Description 03/14/2024 11:45 AM TILE LAYER HELPER Office Visit [facility] [address] Marvin Mckeon MD Three [facility] [address] [place] [phone] 03/20/2024 11:30 AM TILE LAYER HELPER Office Visit [facility] Family Medicine - [address] [address] Abiodun Segura II, MD [address] [place] [phone] documented as of this encounter Visit Diagnoses Not on filedocumented in this encounter Additional Health Concerns Infection Onset Date Last Indicated Resolved Time COVID-19 Rule Out 09/22/2019 09/22/2019 09/24/2019 11:13 PM CDT COVID-19 Rule Out 11/02/2019 11/02/2019 11/03/2019 3:22 PM CDT COVID-19 Rule Out 12/13/2019 12/13/2019 12/14/2019 3:06 PM CDT COVID-19 Confirmed 12/13/2019 12/13/2019 0 12:34 AM TILE LAYER HELPER documented as of this encounter Care Teams Auxiliary Power Equipment Operator Relationship Specialty Start Date End Date Jarred Rod MD PCP - General FAMILY PRACTICE 07/21/15 09/30/20 Shira Shi, JESUSC [address] [place] [address] PCP - General PHYSICIAN MALARIOLOGIST 10/01/20 11/17/20 Jarred Rod MD [address] [place] [address] PCP - General FAMILY PRACTICE 11/18/20 12/05/20 Abiodun Segura II, MD [address] [place] [address] PCP - General FAMILY PRACTICE 12/06/20 01/16/21 Jarred Rod MD [address] [place] [address] PCP - General FAMILY PRACTICE 01/17/21 03/08/21 documented as of this encounter
--- OUTSIDE RECORDS SUMMARY | 2024-03-03 01:31 | XMS_ITS | Encounter Summary ---
Author Organization [facility] Address [address] [place] [address]. [place] [address] [place] [address] Care Team Providers Care Public Relations Officer Name Role Phone Jrared Rod MD Primary Care Provider Unav ailable [...] Contact Info) Description 03/14/2024 11:45 AM ENVIRONMENTAL AIR SPECIALIST Office Visit [facility]-[address] [phone] Marvin Mckeon MD Three [facility] [address] [place] [address] 03/20/2024 11:30 AM ENVIRONMENTAL AIR SPECIALIST Office Visit [facility] Family Medicine - [place] [address] [place] [phone] Abiodun Segura II, MD 100 [place] [address] documented as of this encounter Visit Diagnoses Not on filedocumented in this encounter Care Teams Public Relations Officer Relationship Specialty Start Date End Date Jarred Rod MD PCP - General FAMILY PRACTICE 07/21/15 09/30/20 documented as of this encounter
--- OUTSIDE RECORDS SUMMARY | 2024-03-03 01:31 | XMS_ITS | Encounter Summary ---
Author Organization [facility] Address [address] [place] [address]. [place], [place] [address] [place] [address] Care Team Providers Care Parts Cataloger Name Role Phone Jarred Rod MD Primary Care Provider Unav ailable Shira Shi PA-C Primary Care Provider +1- [phone] Jarred Rod MD Primary Care Provider Unav [...] COVID-19? No / Unsure 01/24/2021 11:10 AM SENIOR FRONT END ENGINEER documented as of this encounter Functional [...] Contact Info) Description 03/14/2024 11:45 AM SENIOR FRONT END ENGINEER Office Visit [facility] [phone] Marvin Mckeon MD Three [facility] [address] [place] [phone] 03/20/2024 11:30 AM SENIOR FRONT END ENGINEER Office Visit [facility] Family Medicine - [address] [address] Abiodun Segura II, MD [address] [place] [phone] documented as of this encounter Visit Diagnoses Not on filedocumented in this encounter Additional Health Concerns Infection Onset Date Last Indicated Resolved Time COVID-19 Rule Out 09/22/2019 09/22/2019 09/24/2019 11:13 PM CDT COVID-19 Rule Out 11/02/2019 11/02/2019 11/03/2019 3:22 PM CDT COVID-19 Rule Out 12/13/2019 12/13/2019 12/14/2019 3:06 PM CDT COVID-19 Confirmed 12/13/2019 12/13/2019 0 12:34 AM SENIOR FRONT END ENGINEER documented as of this encounter Care Teams Parts Cataloger Relationship Specialty Start Date End Date Jarred Rod MD PCP - General FAMILY PRACTICE 07/21/15 09/30/20 Shira Shi, JESUSC [address] [place] [address] PCP - General PHYSICIAN HORTICULTURAL SPECIALTY GROWER FIELD 10/01/20 11/17/20 Jarred Rod MD [address] [place] [address] PCP - General FAMILY PRACTICE 11/18/20 12/05/20 Abiodun Segura II, MD [address] [place] [address] PCP - General FAMILY PRACTICE 12/06/20 01/16/21 Jarred Rod MD [address] [place] [address] PCP - General FAMILY PRACTICE 01/17/21 03/08/21 documented as of this encounter
--- OUTSIDE RECORDS SUMMARY | 2024-03-03 01:31 | XMS_ITS | Encounter Summary ---
Author Organization [facility] Address [address] [place] [address]. [place], [place] [address] [place] [address] Care Team Providers Care News Content Specialist Name Role Phone Jarred Rod MD Primary Care Provider Unav ailable Shira Shi PA-C Primary Care Provider +1- [phone] Jarred Rod MD Primary Care Provider Unav [...] No / Unsure 01/24/2021 11:10 AM TOOL CRIB SUPERVISOR documented as of this encounter Functional [...] Contact Info) Description 03/14/2024 11:45 AM TOOL CRIB SUPERVISOR Office Visit [facility] [phone] Marvin Mckeon MD Three [facility] [address] [place] [phone] 03/20/2024 11:30 AM TOOL CRIB SUPERVISOR Office Visit [facility] Family Medicine - [address] [address] Abiodun Segura II, MD [address] [place] [phone] documented as of this encounter Visit Diagnoses Not on filedocumented in this encounter Additional Health Concerns Infection Onset Date Last Indicated Resolved Time COVID-19 Rule Out 09/22/2019 09/22/2019 09/24/2019 11:13 PM CDT COVID-19 Rule Out 11/02/2019 11/02/2019 11/03/2019 3:22 PM CDT COVID-19 Rule Out 12/13/2019 12/13/2019 12/14/2019 3:06 PM CDT COVID-19 Confirmed 12/13/2019 12/13/2019 0 12:34 AM TOOL CRIB SUPERVISOR documented as of this encounter Care Teams News Content Specialist Relationship Specialty Start Date End Date Jarred Rod MD PCP - General FAMILY PRACTICE 07/21/15 09/30/20 Shira Shi, JESUSC [address] [place] [address] PCP - General PHYSICIAN GROCERY STOCKER 10/01/20 11/17/20 Jarred Rod MD [address] [place] [address] PCP - General FAMILY PRACTICE 11/18/20 12/05/20 Abiodun Segura II, MD [address] [place] [address] PCP - General FAMILY PRACTICE 12/06/20 01/16/21 Jarred Rod MD [address] [place] [address] PCP - General FAMILY PRACTICE 01/17/21 03/08/21 documented as of this encounter
--- OUTSIDE RECORDS SUMMARY | 2024-03-03 01:31 | XMS_ITS | Encounter Summary ---
Author Organization [facility] Address [address] [place] [address]. [place], [place] [address] [place] [address] Care Team Providers Care Undercutter Name Role Phone Jarred Rod MD Primary Care Provider Unav ailable Shira Shi PA-C Primary Care Provider +1- [phone] Jarred Rod MD Primary Care Provider Unav [...] COVID-19? No / Unsure 01/24/2021 11:10 AM PILLOWCASE SEWER documented as of this encounter Functional [...] st Contact Info) Description 03/14/2024 11:45 AM PILLOWCASE SEWER Office Visit [facility] [phone] Marvin Mckeon MD Three [facility] [address] [place] [phone] 03/20/2024 11:30 AM PILLOWCASE SEWER Office Visit [facility] Family Medicine - [address] [address] Abiodun Segura II, MD [address] [place] [phone] documented as of this encounter Visit Diagnoses Not on filedocumented in this encounter Additional Health Concerns Infection Onset Date Last Indicated Resolved Time COVID-19 Rule Out 09/22/2019 09/22/2019 09/24/2019 11:13 PM CDT COVID-19 Rule Out 11/02/2019 11/02/2019 11/03/2019 3:22 PM CDT COVID-19 Rule Out 12/13/2019 12/13/2019 12/14/2019 3:06 PM CDT COVID-19 Confirmed 12/13/2019 12/13/2019 0 12:34 AM PILLOWCASE SEWER documented as of this encounter Care Teams Undercutter Relationship Specialty Start Date End Date Jarred Rod MD PCP - General FAMILY PRACTICE 07/21/15 09/30/20 Shira Shi, JESUSC [address] [place] [address] PCP - General PHYSICIAN QUALITY CONTROL AUDITOR 10/01/20 11/17/20 Jarred Rod MD [address] [place] [address] PCP - General FAMILY PRACTICE 11/18/20 12/05/20 Abiodun Segura II, MD [address] [place] [address] PCP - General FAMILY PRACTICE 12/06/20 01/16/21 Jarred Rod MD [address] [place] [address] PCP - General FAMILY PRACTICE 01/17/21 03/08/21 documented as of this encounter
--- OUTSIDE RECORDS SUMMARY | 2024-03-03 01:31 | XMS_ITS | Encounter Summary ---
Author Organization [facility] Address [address] [place] [address]. [place], [place] [address] [place] [address] Care Team Providers Care Schedule Hanger Name Role Phone Jarred Rod MD Primary Care Provider Unav ailable Shira Shi PA-C Primary Care Provider +1- [phone] Jarred Rod MD Primary Care Provider Unav [...] COVID-19? No / Unsure 01/24/2021 11:10 AM STAPLE SHEAR OPERATOR documented as of this encounter Functional [...] st Contact Info) Description 03/14/2024 11:45 AM STAPLE SHEAR OPERATOR Office Visit [facility] [phone] Marvin Mckeon MD Three [facility] [address] [place] [address] 03/20/2024 11:30 AM STAPLE SHEAR OPERATOR Office Visit [facility] Family Medicine - [place] 100 [place] [phone] Abiodun Segura II, MD 100 [place], [place] [phone] documented as of this encounter Procedures Procedure [...] COVID-19 Confirmed 12/13/2019 12/13/2019 0 12:34 AM STAPLE SHEAR OPERATOR documented as of this encounter Care Teams Schedule Hanger Relationship Specialty Start Date End Date Jarred Rod MD PCP - General FAMILY PRACTICE 07/21/15 09/30/20 Shira Shi PA-C [address] [place] [address] PCP - General PHYSICIAN NEW ORDER CLERK 10/01/20 11/17/20 Jarred Rod MD [address] [place] [address] PCP - General FAMILY PRACTICE 11/18/20 12/05/20 Abiodun Segura II, MD [address] [place] [address] PCP - General FAMILY PRACTICE 12/06/20 01/16/21 Jarred Rod MD [address] [place] [address] PCP - General FAMILY PRACTICE 01/17/21 03/08/21 documented as of this encounter
--- OUTSIDE RECORDS SUMMARY | 2024-03-03 01:31 | XMS_ITS | Encounter Summary ---
Author Organization [facility] Address [address] [place] [address]. [place] [address] [place] [address] Care Team Providers Care Ironer Machine Name Role Phone Jarred Rod MD Primary Care Provider Unav ailable Reason for Referral * Imaging (Emergency) - Closed Specialty Diagnoses / Procedures Referred By Lyla chaney Referred To Contact RADIOLOGY Procedures CT ABD+PEL W IV CON ONLY Jing Mancilla PA-C [address] [address] Phone: tel: fax: Referral ID Status Reason Start Date Expiration Date Visits Re quested Visits Authorized [id number] Closed 02/15/2019 03/18/2020 1 1 TEACHER Reason for Visit * Reason Comments Vomiting Diarrhea Encounter Details Date Type Department Care Team (Late st Contact Info) Description 02/15/2019 2:45 PM PBX TEACHER - 02/15/2019 10:22 PM PBX TEACHER Emergency [facility] Emergency Room [place], [place] [address] Christ Coombs MD [address] [place] [address] Vomiting; Diarrhea Discharge Disposition: Home or Self [...] Comments Blood Pressure 155/92 02/15/2019 10:15 PM PBX TEACHER Pulse 61 02/15/2019 2:39 PM PBX TEACHER Temperature 36.7 ??C (98.1 ??F) 02/15/2019 9:15 PM CS T Respiratory Rate 18 02/15/2019 9:15 PM PBX TEACHER Oxygen Saturation 97% 02/15/2019 9:15 PM PBX TEACHER Inhaled Oxygen Concentration - - Weight 88.5 kg (195 lb) 02/15/2019 2:39 PM PBX TEACHER Height 167.6 cm (5' 6 ) 02/15/2019 2:39 PM PBX TEACHER Body Mass Index 31.47 02/15/2019 2:39 PM PBX TEACHER documented in this encounter Discharge Instructions * Discharge Instructions* Christ Coombs MD - 02/15/2019 10:07 PM PBX TEACHER Please follow a clear liquid diet (see [...] care by your primary care physician or independent consultant. Your medication list was reviewed prior [...] such as many narcotic drug combinations and bmgd-nyd-gavevbe cold medicines. Your feedback is important to us. Please fill out the survey you will get in the mail. We need yourinput to give you the best care possible! With your feedback we??ll know where we need to focus ourefforts to provide very good service to our patients! TEACHER * Attachments The following attachments cannot be sent through Care Everywhere. * Viral Syndrome Discharge Instructions (Indonesian) * Clear Liquid Diet (Indonesian) * Sick Day Management for Diabetics (Indonesian) * Nausea and Vomiting Discharge Instructions, Adult (Indonesian) * Diarrhea in Adolescents and Adults (Indonesian) documented in this encounter Medications at Time [...] She may benefit from a robotic ureterolysis. TEACHER documented in this encounter ED Notes * [...] of 02/15/19 ECG [address] [facility] [facility] Test Date: 2019-02-15 Pat Name: LENA YOUNGBLOOD Department: Room: [facility] Gender: Female Erp Pm: PAMELA : 1970 Requested By: JING MANCILLA Order Number: [id number] Reading MD: Measurements Intervals [place] Rate: 99 P: 48 MS: 178 QRS: 19 QRSD: 82 T: -85 [...] CLEAN CATCH COLOR YELLOW TRANSPARENCY CLEAR Specific [place] (U) 1.014 1.001 - 1.030 U PH [...] XR ABD KUB Final Result by User, [id number] (02/15 2010) EXAMINATION: X-RAY ABDOMEN ONE VIEW [...] XR ABD KUB Final Result by User, [id number] (02/15 3356) EXAMINATION: XR ABD KUB HISTORY: Follow-up abnormal [...] IV CON ONLY Final Result by User, [id number] (02/15 9448) Procedure(s): CT ABD+PEL W CON Date of [...] XR CHEST PORTABLE Final Result by User, [id number] (02/15 7246) EXAM: AP CHEST CLINICAL STATEMENT: chest pain [...] Caliectasis Disposition: Discharge Christ Coombs MD 02/15/192209 TEACHER * Jing Mancilla PA-C - 02/15/2019 2:48 PM CST [place], [place] EMERGENCY DEPARTMENT ENCOUNTER Medical Screening Examination [...] Nicole Jolley MD at 02/15/2019 5:13 PM PBX TEACHER TEACHER TEACHER * Mary Beth Shrestha RN - 02/15/2019 2:41 PM CST Patient to triage with c/o n/v/d that started today. Patient also right flank pain and upper abdominal/epigastric pain. Patient also reports left sided chest wall pain that is a cramping pain that isworse with movement and vomiting. MARY BETH SHRESTHA RN TEACHER documented in this encounter Plan of Treatment Upcoming Encounters Date Type Department Care Team (Late st Contact Info) Description 03/14/2024 11:45 AM PBX TEACHER Office Visit [facility]-[address] [phone] Marvin Mckeon MD [address] [facility] [address] [place] [address] 03/20/2024 11:30 AM PBX TEACHER Office Visit [facility] - [place] [address] [place] [phone] Abiodun Segura II, MD [address] [place] [address] documented as of this encounter Procedures Procedure Name Priority Date/Time Associated Diagnosis Comments POCT BEDSIDE BLOOD GLUCOSE STAT 02/15/2019 9:51 PM PBX TEACHER POCT GLUCOSE - CORREA DOCKED DEVICE Routine 02/15/2019 9:46 PM PBX TEACHER XR ABD KUB STAT 02/15/2019 8:02 PM PBX TEACHER XR ABD KUB STAT 02/15/2019 5:[address] ABD+PEL W CON STAT 02/15/2019 5:02 PM PBX TEACHER COMPREHENSIVE METABOLIC PANEL STAT 02/15/2019 3:41 PM PBX TEACHER CBC W/DIFF AUTOMATED STAT 02/15/2019 3:41 PM PBX TEACHER TROPONIN, QUANT STAT 02/15/2019 3:41 PM PBX TEACHER LIPASE STAT 02/15/2019 3:41 PM PBX TEACHER INFLUENZA A & B STAT 02/15/2019 3:28 PM PBX TEACHER URINALYSIS STAT 02/15/2019 3:28 PM PBX TEACHER ECG 12-LEAD STAT 02/15/2019 3:12 PM PBX TEACHER XR CHEST PORTABLE STAT 02/15/2019 2:5 9 PM PBX TEACHER documented in this encounter Results * Bedside Blood Glucose (02/15/2019 9:51 PM PBX TEACHER) GLUCOSE WHOLE BLOOD 84 70 - 100 mg/dL Christ Coombs MD NURSING TREATMENT ORDERABLES - ONCE OR INTERVALS Final Result * POCT glucose (02/15/2019 9:46 PM PBX TEACHER) GLUCOSE POC 84 70 - 99 mg/dL 02/15/2019 9:56 PM PBX TEACHER [facility] ORDERS INTERFACE 02/15/2019 9:46 PM PBX TEACHER Christ Coombs MD POCT ORDERABLES - DEVICE Final Result [facility] ORDERS INTERFACE US * XR ABD KUB (02/15/2019 8:02 PM PBX TEACHER) Anatomical Region Laterality Modality Abdomen Fluoroscopy 02/15/2019 8:08 PM PBX TEACHER Impressions 02/15/2019 8:09 PM PBX TEACHER IMPRESSION: Redemonstrated moderate to marked right pelvocaliectasis, unchanged.. Interpreted By: Cem Caballero MD, 02/15/2019 8:08 PM Narrative 02/15/2019 8:09 PM PBX TEACHER EXAMINATION: X-RAY ABDOMEN ONE VIEW EXAM TIME: [...] * XR ABD KUB (02/15/2019 5:46 PM PBX TEACHER) Anatomical Region Laterality Modality Abdomen Fluoroscopy 02/15/2019 5:49 PM PBX TEACHER Impressions 02/15/2019 5:54 PM PBX TEACHER IMPRESSION: Dilated right renal collecting system. Interpreted By: Arley Gastelum MD, 02/15/2019 5:49 PM Narrative 02/15/2019 5:54 PM PBX TEACHER EXAMINATION: XR ABD KUB HISTORY: Follow-up abnormal [...] W IV CON ONLY (02/15/2019 5:02 PM PBX TEACHER) Anatomical Region Laterality Modality Abdomen Computed Tomogra phy 02/15/2019 5:10 PM PBX TEACHER Impressions 02/15/2019 5:26 PM PBX TEACHER IMPRESSION: Within the right adnexa there is [...] 02/15/2019 5:10 PM Narrative 02/15/2019 5:26 PM PBX TEACHER Procedure(s): CT ABD+PEL W CON Date of [...] esult * TROPONIN, QUANT (02/15/2019 3:41 PM PBX TEACHER) [facility] TROPONIN I <0.015 <0.045 ng/mL. 02/15/2019 4:18 PM PBX TEACHER [facility] Comment: HIGH DOSES OF BIOTIN MAY INTERFERE WITH THIS TEST RESULT. CORRELATION TO CLINICAL HISTORY AND PRESENTATION RECOMMENDED. 02/15/2019 3:41 PM PBX TEACHER Jing Mancilla PA-C LABORATORY Final R esult [facility] [address] [place] [address], [place] [phone] * LIPASE (02/15/2019 3:41 PM PBX TEACHER) Pathologist [facility] LIPASE 128 73 - 393 UNITS/L 02/15/2019 4:18 PM [facility] 02/15/2019 3:41 PM PBX TEACHER Jing Mancilla PA-C LABORATORY Final R esult [facility] [address] [place] [address], * (ABNORMAL) COMPREHENSIVE METABOLIC PANEL (02/15/2019 3:41 PM PBX TEACHER) GLUCOSE 145(H) 70 - 99 MG/DL 02/15/2019 4:18 PM [facility] BUN 27(H) 7 - 18 MG/DL 02/15/2019 4:18 PM [facility] CREATININE S/P/B 1.21(H) 0.55 - 1.02 MG/DL 02/15/2019 4:18 PM [facility] SODIUM S/P/B 137 136 - 145 MMOL/L 02/15/2019 4:18 PM [facility] POTASSIUM S/P/B 4.0 3.5 - 5.1 MMOL/L 02/15/2019 4:18 PM [facility] CHLORIDE S/P/B 104 100 - 108 MMOL/L 02/15/2019 4:18 PM [facility] CO2 28.5 21 - 32 MMOL/L 02/15/2019 4:18 PM [facility] CALCIUM S/P/B 9.8 8.5 - 10.1 MG/DL 02/15/2019 4:18 PM [facility] BILIRUBIN TOTAL S/P/B 0.5 0.2 - 1.2 MG/DL 02/15/2019 4:18 PM [facility] TOTAL PROTEIN S/P/B 9.5(H) 6.4 - 8.2 G/DL 02/15/2019 4:18 PM [facility] ALBUMIN S/P/B 3.8 3.4 - 5.0 G/DL 02/15/2019 4:18 PM [facility] AST 21 15 - 37 U/L 02/15/2019 4:18 PM [facility] ALT 36 14 - 55 U/L 02/15/2019 4:18 PM [facility] ALKALINE PHOSPHATASE S/P/B 133 50 - 136 U/L 02/15/2019 4:18 PM [facility] ANION GAP 4.5(L) 5 - 15 MMOL/L 02/15/2019 4:18 PM [facility] BUN CREATININE RATIO 22.3 6 - 26 02/15/2019 4:18 PM [facility] A/G RATIO 0.7(L) 1.0 - 2.0 RATIO 02/15/2019 4:18 PM [facility] EGFR NON-AFR. AMER. 53(L) >90 ML/MIN/1.7 3 M2 02/15/2019 4:18 PM [facility] EGFR AFR. AMER. 62(L) >90 ML/MIN/1.7 3 M2 02/15/2019 4:18 PM [facility] Comment: NOTE: eGFR is not calculated for patients <18 years of age. This is an estimated GFR (CKD EPI) and should not be used for calculating drug doses. 02/15/2019 3:41 PM PBX TEACHER us Jing Mancilla PA-C LABORATORY Final R esult [facility] [address] [place] [address], [place] [phone] * (ABNORMAL) CBC W/DIFF AUTOMATED (02/15/2019 3:41 PM PBX TEACHER) [facility] Signature WBC 14.0(H) 4.5 - 11.0 x10'3/uL 02/15/2019 3:57 PM [facility] RBC 4.37 4.20 - 5.40 x10'6/uL 02/15/2019 3:57 PM [facility] HGB 13.0 12.0 - 16.0 G/DL 02/15/2019 3:57 PM [facility] HCT 38.2 38.0 - 48.0 % 02/15/2019 3:57 PM [facility] MCV 87.4 80.0 - 94.0 FL 02/15/2019 3:57 PM [facility] MCH 29.7 27.0 - 31.0 PG 02/15/2019 3:57 PM [facility] MCHC 34.0 32.0 - 36.0 G/DL 02/15/2019 3:57 PM [facility] RDW 12.2 11.5 - 14.5 % 02/15/2019 3:57 PM [facility] PLT 319 130 - 400 x10'3/uL 02/15/2019 3:57 PM [facility] MPV 11.1 9.3 - 12.2 FL 02/15/2019 3:57 PM [facility] DIFFERENTIAL TYPE AUTOMATED DIFFERENTIAL 02/15/2019 3:57 PM [facility] NEUTROPHILS % 80.4 % 02/15/2019 3:57 PM [facility] LYMPHOCYTES % 13.5 % 02/15/2019 3:57 PM [facility] MONOCYTES % 4.7 % 02/15/2019 3:57 PM [facility] EOSINOPHILS 0.6 % 02/15/2019 3:57 PM PBX TEACHER [facility] BASOPHILS 0.3 % 02/15/2019 3:57 PM PBX TEACHER [facility] IMMATURE GRANS % 0.5 % 02/16/20 19 3:57 PM PBX TEACHER [facility] ABS. NEUTROPHILS TOTAL 11.24(H) 1.80 - 7.70 x10'3/uL 02/15/2019 3:57 PM PBX TEACHER [facility] ABS. LYMPHOCYTES 1.89 1.00 - 4.80 x10'3/uL 02/15/2019 3:57 PM PBX TEACHER [facility] ABS. MONOCYTES 0.66 0.24 - 0.86 x10'3/uL 02/15/2019 3:57 PM PBX TEACHER [facility] ABS. EOSINOPHILS 0.09 0.04 - 0.36 x10'3/uL 02/15/2019 3:57 PM PBX TEACHER [facility] ABS. BASOPHILS 0.04 0.01 - 0.08 x10'3/uL 02/15/2019 3:57 PM PBX TEACHER [facility] ABS. IMMATURE GRANULOCYTES 0.07 0.00 - 0.49 x10'3/uL 02/15/2019 3:57 PM PBX TEACHER [facility] 02/15/2019 3:41 PM PBX TEACHER Jing Mancilla PA-C LABORATORY Final R esult [facility] [address] [place] [address], * INFLUENZA A & B (02/15/2019 3:28 PM PBX TEACHER) SPECIMEN TYPE NASOPHARYNGEAL SWAB 02/15/2019 3:35 PM PBX TEACHER [facility] INFLUENZA A NEGATIVE NEGATIVE 02/15/2019 4:00 PM PBX TEACHER [facility] INFLUENZA B NEGATIVE NEGATIVE 02/15/2019 4:00 PM PBX TEACHER [facility] Comment: Interpretation: Negative for Influenza [...] NASOPHARYNGEAL SWAB / Unknown 02/15/2019 3:28 PM PBX TEACHER Jing Mancilla PA-C MICROBIOLOGY - GENERAL ORDERABLES Final Result [facility] [address] [place] [id number], * (ABNORMAL) URINALYSIS (02/15/2019 3:28 PM PBX TEACHER) SPECIMEN TYPE URINE CLEAN CATCH 02/15/2019 3:17 PM PBX TEACHER [facility] COLOR (U) YELLOW 02/15/2019 3:50 PM [facility] TRANSPARENCY CLEAR 02/15/2019 3:50 PM [facility] SPECIFIC GRAVITY (U) 1.014 1.001 - 1.030 02/15/2019 3:50 PM PBX TEACHER [facility] U PH 6.0 5.0 - 9.0 02/15/2019 3:50 PM [facility] LEUKOCYTES (U) NEGATIVE NEGATIVE 02/15/2019 3:50 PM [facility] NITRITES NEGATIVE NEGATIVE 02/15/2019 3:50 PM [facility] PROTEIN (U) 100(H) <30 MG/DL 02/15/2019 3:50 PM [facility] URINE GLUCOSE NEGATIVE NEGATIVE MG/DL 02/15/2019 3:50 PM PBX TEACHER [facility] KETONES MG/DL (U) NEGATIVE NEGATIVE MG/DL 02/15/2019 3:50 PM PBX TEACHER [facility] UROBILINOGEN NEGATIVE NEGATIVE MG/DL 02/15/2019 3:50 PM PBX TEACHER [facility] BILIRUBIN (U) NEGATIVE NEGATIVE MG/DL 02/15/2019 3:50 PM PBX TEACHER [facility] BLOOD (U) NEGATIVE NEGATIVE 02/15/2019 3:50 PM PBX TEACHER [facility] CULTURE & SENSITIVITY INDICATED? CULTURE IS NOT INDICATED 02/15/2019 3:50 PM PBX TEACHER [facility] SQUAMOUS EPITHELIALS MANY /LPF 02/15/2019 3:50 PM PBX TEACHER [facility] MUCUS RARE /LPF 02/15/2019 3:50 PM PBX TEACHER [facility] WBC/HPF <1 <6 /HPF 02/15/2019 3:50 PM PBX TEACHER [facility] RBC/HPF <1 <6 /HPF 02/15/2019 3:50 PM PBX TEACHER [facility] URINE SPECIMEN OBTAINED BY CLEAN CATCH PROCEDURE / Unknown 02/15/2019 3:28 PM PBX TEACHER Jing Mancilla PA-C URINE ORDERABLES Final Result [facility] [address] [place] [address], [place] [phone] * ECG 12 lead (02/15/2019 3:12 PM PBX TEACHER) 02/15/2019 3:12 PM PBX TEACHER Narrative [facility] - 02/16/2019 11:53 PM PBX TEACHER ?[facility] ? [address], [place] ? Test Date: ?2019-02-15 Pat Name: ? LENA PERRY ?Department: ? Room: ? EXAM20 Gender: ? Female ? Erp Pm: ?? CM : ?1970 ? Requested By: JING MANCILLA Order Number: [id number] ?Reading MD: ?? Reynaldo Scally ? Measurements Intervals ?[place] ? Rate: ? 99 ? P: ?48 MS: ? 178 ?QRS: ?19 QRSD: ? 82 ? T: ?-85 QT: ? 330 ? QTc: ?423 ? Interpretive Statements SINUS RHYTHM MINIMAL VOLTAGE CRITERIA FOR LVH, CONSIDER NORMAL VARIANT NONSPECIFIC T-WAVE ABNORMALITY Compared to ECG 02/04/2017 12:02:56 No significant changes Preliminary EKG interpretation by ED Physician Other ischemic changes, not STEMI Jing Mancilla PA-C CRITICAL ALERT ISSUED ON 02-15-2019 15:19:12 TEACHER Procedure Note Reynaldo Leonardo MD - 02/16/[address] [facility] Test Date: 2019-02-15 Pat Name: LENA YOUNGBLOOD Department: Room: [facility] Gender: Female Erp Pm: PAMELA : 1970 Requested By: JING MANCILLA Order Number: [id number] Reading MD: Reynaldo Leonardo Measurements Intervals [place] Rate: 99 P: 48 MS: 178 QRS: 19 QRSD: 82 T: -85 QT: 330 QTc: 423 Interpretive Statements SINUS RHYTHM MINIMAL VOLTAGE CRITERIA FOR LVH, CONSIDER NORMAL VARIANT NONSPECIFIC T-WAVE ABNORMALITY Compared to ECG 02/04/2017 12:02:56 No significant changes Preliminary EKG interpretation by ED Physician Other ischemic changes, not STEMI Jing Mancilla PA-C CRITICAL ALERT ISSUED ON 02-15-2019 15:19:12 TEACHER us Jing Mancilla PA-C ECG ORDERABLES Final R esult [facility] * XR CHEST PORTABLE (02/15/2019 2:59 PM PBX TEACHER) Anatomical Region Laterality Modality Chest Fluoroscopy 02/15/2019 3:02 PM PBX TEACHER Impressions 02/15/2019 3:03 PM PBX TEACHER IMPRESSION: No acute or focal infiltrates. Interpreted By: Wale Cao MD, 02/15/2019 3:02 PM Narrative 02/15/2019 3:03 PM PBX TEACHER EXAM: AP CHEST CLINICAL STATEMENT: chest pain [...] over 2-5 minutes. Given 02/15/2019 7:12 PM PBX TEACHER 4 mg sodium chloride 0.9% bolus infusion SOLN 1,000 mL 1,000 mL, Intravenous, Administer over 15 Minutes, Once, 1 dose, On 02/15/19 at 1500 New Bag 02/15/2019 7:12 PM PBX TEACHER 1,000 mLs documented in this encounter Active and Recently Administered Medications Times are shown in PBX TEACHER. Scheduled Medication Order 02/13/2019 02/14/2019 02/15/2019 ondansetron [...] 0023 documented in this encounter Care Teams Ironer Machine Relationship Specialty Start Date End Date Jarred Rod MD PCP - General FAMILY PRACTICE 07/21/15 09/30/20 documented as of this encounter
--- OUTSIDE RECORDS SUMMARY | 2024-03-03 01:31 | XMS_ITS | Encounter Summary ---
Author Organization [facility] Address [address] [place] [address]. [place] [address] [place] [address] Care Team Providers Care Consulting Hr Professional Name Role Phone Jarred Rod MD Primary Care Provider Unav ailable Reason for Referral * Imaging (Emergency) - Closed Specialty Diagnoses / Procedures Referred By Lyla chaney Referred To Contact RADIOLOGY Procedures CT ABD+PEL W IV CON ONLY Kvng Lewis MD [address] [address] Phone: tel: fax: Referral ID Status Reason Start Date Expiration Date Visits Re quested Visits Authorized [id number] Closed 05/01/2019 05/31/2020 1 1 Reason for Visit * Reason Comments Vaginal Pain Back Pain Encounter Details Date Type Department Care Team (Late st Contact Info) Description 05/01/2019 1:18 AM CDT - 05/01/2019 3:54 AM CDT Emergency [facility] Emergency Room [place], [place] [address] Kvng Lewis MD [address] [phone] Vaginal Pain; Back Pain Discharge Disposition: Home [...] Everywhere. * Acute Pelvic Pain Discharge Instructions ([place]) documented in this encounter Medications at Time [...] CATCH COLOR (U) YELLOW TRANSPARENCY CLOUDY Specific [place] (U) 1.008 1.001 - 1.030 U PH [...] IV CON ONLY Final Result by User, [id number] (04/30 2212) EXAMINATION: CT ABDOMEN AND PELVIS WITH CONTRAST [...] st Contact Info) Description 03/14/2024 11:45 AM CULLET WASHER Office Visit [facility] [address] Marvin Mckeon MD [address] [facility] [address] [place], [place] [phone] 03/20/2024 11:30 AM CULLET WASHER Office Visit [facility] Family Medicine - [place] [address] [place] [phone] Abiodun Segura II, MD [address] [place], [place] [phone] documented as of this encounter Procedures Procedure [...] URINE CLEAN CATCH 05/01/2019 1:57 AM CDT [facility] COLOR (U) YELLOW 05/01/2019 2:09 AM CDT [facility] TRANSPARENCY CLOUDY 05/01/2019 2:09 AM CDT [facility] SPECIFIC GRAVITY (U) 1.008 1.001 - 1.030 05/01/2019 2:09 AM CDT [facility] U PH 5.0 5.0 - 9.0 05/01/2019 2:09 AM CDT [facility] LEUKOCYTES (U) NEGATIVE NEGATIVE 05/01/2019 2:09 AM CDT [facility] NITRITES NEGATIVE NEGATIVE 05/01/2019 2:09 AM CDT [facility] PROTEIN (U) 30(H) <30 MG/DL 05/01/2019 2:09 AM CDT [facility] URINE GLUCOSE >500(A) NEGATIVE MG/DL 05/01/2019 2:09 AM CDT [facility] KETONES MG/DL (U) NEGATIVE NEGATIVE MG/DL 05/01/2019 2:09 AM CDT [facility] UROBILINOGEN NEGATIVE NEGATIVE MG/DL 05/01/2019 2:09 AM CDT [facility] BILIRUBIN (U) NEGATIVE NEGATIVE MG/DL 05/01/2019 2:09 AM CDT [facility] BLOOD (U) NEGATIVE NEGATIVE 05/01/2019 2:09 AM CDT [facility] CULTURE & SENSITIVITY INDICATED? CULTURE IS NOT INDICATED 05/01/2019 2:09 AM CDT [facility] SQUAMOUS EPITHELIALS MANY /LPF 05/01/2019 2:09 AM CDT [facility] HYALINE CASTS FEW /LPF 05/01/2019 2:09 AM CDT [facility] WBC/HPF 2 <6 /HPF 05/01/2019 2:09 AM CDT [facility] RBC/HPF 1 <6 /HPF 05/01/2019 2:09 AM CDT [facility] BACTERIA (U) FEW(A) NONE /HPF 05/01/2019 2:09 AM CDT [facility] URINE SPECIMEN OBTAINED BY CLEAN CATCH PROCEDURE / Unknown 05/01/2019 1:59 AM CDT us Kvng Lewis MD URINE ORDERABLES Final R esult [facility] [address] [place] [address], [place] [phone] * (ABNORMAL) COMPREHENSIVE METABOLIC PANEL (05/01/2019 1:48 AM CDT) GLUCOSE 253(H) 70 - 99 MG/DL 05/01/2019 2:19 AM CDT [facility] BUN 33(H) 7 - 18 MG/DL 05/01/2019 2:19 AM T [facility] CREATININE S/P/B 1.34(H) 0.55 - 1.02 MG/DL 05/01/2019 2:19 AM CDT [facility] SODIUM S/P/B 136 136 - 145 MMOL/L 05/01/2019 2:19 AM CDT [facility] POTASSIUM S/P/B 4.4 3.5 - 5.1 MMOL/L 05/01/2019 2:19 AM T [facility] CHLORIDE S/P/B 106 100 - 108 MMOL/L 05/01/2019 2:19 AM CDT [facility] CO2 24.2 21 - 32 MMOL/L 05/01/2019 2:19 AM T [facility] CALCIUM S/P/B 9.3 8.5 - 10.1 MG/DL 05/01/2019 2:19 AM T [facility] BILIRUBIN TOTAL S/P/B 0.2 0.2 - 1.2 MG/DL 05/01/2019 2:19 AM T [facility] Comment: THIS ASSAY IS NOT RECOMMENDED FOR PATIENTS UNDERGOING TREATMENT WITH ELTROMBOPAG DUE TO THE POTENTIAL FOR FALSELY ELEVATED RESULTS. TOTAL PROTEIN S/P/B 8.8(H) 6.4 - 8.2 G/DL 05/01/2019 2:19 AM CDT [facility] ALBUMIN S/P/B 3.5 3.4 - 5.0 G/DL 05/01/2019 2:19 AM CDT [facility] AST 17 15 - 37 U/L 05/01/2019 2:19 AM CDT [facility] ALT 31 14 - 55 U/L 05/01/2019 2:19 AM CDT [facility] ALKALINE PHOSPHATASE S/P/B 136 50 - 136 U/L 05/01/2019 2:19 AM CDT [facility] ANION GAP 5.8 5 - 15 MMOL/L 05/01/2019 2:19 AM CDT [facility] BUN CREATININE RATIO 24.6 6 - 26 05/01/2019 2:19 AM CDT [facility] A/G RATIO 0.7(L) 1.0 - 2.0 RATIO 05/01/2019 2:19 AM CDT [facility] EGFR NON-AFR. AMER. 47(L) >90 ML/MIN/1.7 3 M2 05/01/2019 2:19 AM CDT [facility] EGFR AFR. AMER. 54(L) >90 ML/MIN/1.7 3 M2 05/01/2019 2:19 AM CDT [facility] Comment: NOTE: eGFR is not calculated for patients <18 years of age. This is an estimated GFR (CKD EPI) and should not be used for calculating drug doses. 05/01/2019 1:48 AM CDT Kvng Lewis MD LABORATORY Final Re sult [facility] [address] [place] [address], * (ABNORMAL) CBC W/DIFF AUTOMATED (05/01/2019 1:48 AM CDT) WBC 9.3 4.5 - 11.0 x10'3/uL 05/01/2019 1:57 AM CDT [facility] RBC 3.90(L) 4.20 - 5.40 x10'6/uL 05/01/2019 1:57 AM CDT [facility] HGB 11.9(L) 12.0 - 16.0 G/DL 05/01/2019 1:57 AM CDT [facility] HCT 35.2(L) 38.0 - 48.0 % 05/01/2019 1:57 AM CDT [facility] MCV 90.3 80.0 - 94.0 FL 05/01/2019 1:57 AM CDT [facility] MCH 30.5 27.0 - 31.0 PG 05/01/2019 1:57 AM CDT [facility] MCHC 33.8 32.0 - 36.0 G/DL 05/01/2019 1:57 AM T [facility] RDW 12.7 11.5 - 14.5 % 05/01/2019 1:57 AM CDT [facility] PLT 197 130 - 400 x10'3/uL 05/01/2019 1:57 AM CDT [facility] MPV 11.1 9.3 - 12.2 FL 05/01/2019 1:57 AM CDT [facility] DIFFERENTIAL TYPE AUTOMATED DIFFERENTIAL 05/01/2019 1:57 AM CDT [facility] NEUTROPHILS % 56.1 % 05/01/2019 1:57 AM CDT [facility] LYMPHOCYTES % 36.9 % 05/01/2019 1:57 AM CDT [facility] MONOCYTES % 4.7 % 05/01/2019 1:57 AM CDT [facility] EOSINOPHILS 1.4 % 05/01/2019 1:57 AM CDT [facility] BASOPHILS 0.8 % 05/01/2019 1:57 AM CDT [facility] IMMATURE GRANS % 0.1 % 05/01/19 20 1:57 AM CDT [facility] ABS. NEUTROPHILS TOTAL 5.21 1.80 - 7.70 x10'3/uL 05/01/2019 1:57 AM CDT [facility] ABS. LYMPHOCYTES 3.42 1.00 - 4.80 x10'3/uL 05/01/2019 1:57 AM CDT [facility] ABS. MONOCYTES 0.44 0.24 - 0.86 x10'3/uL 05/01/2019 1:57 AM CDT [facility] ABS. EOSINOPHILS 0.13 0.04 - 0.36 x10'3/uL 05/01/2019 1:57 AM CDT [facility] ABS. BASOPHILS 0.07 0.01 - 0.08 x10'3/uL 05/01/2019 1:57 AM CDT [facility] ABS. IMMATURE GRANULOCYTES 0.01 0.00 - 0.49 x10'3/uL 05/01/2019 1:57 AM CDT [facility] 05/01/2019 1:48 AM CDT Kvng Lewis MD LABORATORY Final Re sult [facility] [address] [place] [address], documented in this encounter Visit Diagnoses Diagnosis [...] RTR) documented in this encounter Care Teams Consulting Hr Professional Relationship Specialty Start Date End Date Jarred Rod MD PCP - General FAMILY PRACTICE 07/21/15 09/30/20 documented as of this encounter
--- OUTSIDE RECORDS SUMMARY | 2024-03-03 01:31 | XMS_ITS | Encounter Summary ---
Author Organization [facility] Address [address] [place] [address]. [place], [place] [address] [place] [address] Care Team Providers Care Director Professional Services Name Role Phone Jarred Rod MD Primary Care Provider Unav ailable Shira Shi PA-C Primary Care Provider +1- [phone] Jarred Rod MD Primary Care Provider Unav [...] COVID-19? No / Unsure 01/24/2021 11:10 AM SUPERVISOR DRYING documented as of this encounter Functional Status [...] Contact Info) Description 03/14/2024 11:45 AM SUPERVISOR DRYING Office Visit [facility]-[address] [phone] Marvin Mckeon MD Three [facility] [address] [place] [address] 03/20/2024 11:30 AM SUPERVISOR DRYING Office Visit [facility] Family Medicine - [place] [address] [place] [phone] Abiodun Segura II, MD [address] [place], [place] [phone] documented as of this encounter Procedures Procedure [...] COVID-19 Confirmed 12/13/2019 12/13/2019 0 12:34 AM SUPERVISOR DRYING documented as of this encounter Care Teams Director Professional Services Relationship Specialty Start Date End Date Jarred Rod MD PCP - General FAMILY PRACTICE 07/21/15 09/30/20 Shira Shi PA-C [address] [place] [phone] PCP - General PHYSICIAN COMPRESSED GAS EQUIPMENT MECHANIC 10/01/20 11/17/20 Jarred Rod MD [address] [place] [phone] PCP - General FAMILY PRACTICE 11/18/20 12/05/20 Abiodun Segura II, MD [address] [place] [address] PCP - General FAMILY PRACTICE 12/06/20 01/16/21 Jarred Rod MD [address] [place] [phone] PCP - General FAMILY PRACTICE 01/17/21 03/08/21 documented as of this encounter
--- OUTSIDE RECORDS SUMMARY | 2024-03-03 01:31 | XMS_ITS | Encounter Summary ---
Author Organization [facility] Address [address] [place] [address]. [place], [place] [address] [place] [address] Care Team Providers Care Electrolysis Operator Name Role Phone Jarred Rod MD Primary Care Provider Unav ailable Shira Shi PA-C Primary Care Provider +1- [phone] Jarred Rod MD Primary Care Provider Unav [...] COVID-19? No / Unsure 01/24/2021 11:10 AM MOLD SHOP SUPERVISOR documented as of this encounter Functional [...] st Contact Info) Description 03/14/2024 11:45 AM MOLD SHOP SUPERVISOR Office Visit [facility] [phone] Marvin Mckeon MD Three [facility] [address] [place] [phone] 03/20/2024 11:30 AM MOLD SHOP SUPERVISOR Office Visit [facility] Family Medicine - [address] [phone] Abiodun Segura II, MD [address] [place] [phone] documented as of this encounter Visit Diagnoses Not on filedocumented in this encounter Additional Health Concerns Infection Onset Date Last Indicated Resolved Time COVID-19 Rule Out 09/22/2019 09/22/2019 09/24/2019 11:13 PM CDT COVID-19 Rule Out 11/02/2019 11/02/2019 11/03/2019 3:22 PM CDT COVID-19 Rule Out 12/13/2019 12/13/2019 12/14/2019 3:06 PM CDT COVID-19 Confirmed 12/13/2019 12/13/2019 0 12:34 AM MOLD SHOP SUPERVISOR documented as of this encounter Care Teams Electrolysis Operator Relationship Specialty Start Date End Date Jarred Rod MD PCP - General FAMILY PRACTICE 07/21/15 09/30/20 Shira Shi, JESUSC [address] [place] [phone] PCP - General PHYSICIAN AQUARIUM TANK ATTENDANT 10/01/20 11/17/20 Jarred Rod MD [address] [place] [phone] PCP - General FAMILY PRACTICE 11/18/20 12/05/20 Abiodun Segura II, MD [address] [place] [phone] PCP - General FAMILY PRACTICE 12/06/20 01/16/21 Jarred Rod MD [address] [place] [phone] PCP - General FAMILY PRACTICE 01/17/21 03/08/21 documented as of this encounter
--- OUTSIDE RECORDS SUMMARY | 2024-03-03 01:31 | XMS_ITS | Encounter Summary ---
Author Organization [facility] Address [address] [place] [address]. [place], [place] [phone] [place] [address] Care Team Providers Care Museum Or Zoo Director Name Role Phone Jarred Rod MD Primary Care Provider Unav ailable Shira Shi PA-C Primary Care Provider +1- [phone] Jarred Rod MD Primary Care Provider Unav [...] No / Unsure 01/24/2021 11:10 AM SECURITY GUARD SUPERVISOR documented as of this encounter Functional [...] Contact Info) Description 03/14/2024 11:45 AM SECURITY GUARD SUPERVISOR Office Visit [facility] [phone] Marvin Mckeon MD Three [facility] [address] [place] [phone] 03/20/2024 11:30 AM SECURITY GUARD SUPERVISOR Office Visit [facility] Family Medicine - [address] [phone] Abiodun Segura II, MD [address] [place] [phone] documented as of this encounter Visit Diagnoses Not on filedocumented in this encounter Additional Health Concerns Infection Onset Date Last Indicated Resolved Time COVID-19 Rule Out 09/22/2019 09/22/2019 09/24/2019 11:13 PM CDT COVID-19 Rule Out 11/02/2019 11/02/2019 11/03/2019 3:22 PM CDT COVID-19 Rule Out 12/13/2019 12/13/2019 12/14/2019 3:06 PM CDT COVID-19 Confirmed 12/13/2019 12/13/2019 0 12:34 AM SECURITY GUARD SUPERVISOR documented as of this encounter Care Teams Museum Or Zoo Director Relationship Specialty Start Date End Date Jarred Rod MD PCP - General FAMILY PRACTICE 07/21/15 09/30/20 Shira Shi, JESUSC [address] [place] [phone] PCP - General PHYSICIAN MEDIA SALES EXECUTIVE 10/01/20 11/17/20 Jarred Rod MD [address] [place] [address] PCP - General FAMILY PRACTICE 11/18/20 12/05/20 Abiodun Segura II, MD [address] [place] [address] PCP - General FAMILY PRACTICE 12/06/20 01/16/21 Jarred Rod MD [address] [place] [phone] PCP - General FAMILY PRACTICE 01/17/21 03/08/21 documented as of this encounter
--- OUTSIDE RECORDS SUMMARY | 2024-03-03 01:31 | XMS_ITS | Encounter Summary ---
Author Organization [facility] Address [address] [place] [address]. [place], [place] [address] [place] [address] Care Team Providers Care Aerial Sprayer Name Role Phone Jarred Rod MD Primary Care Provider Unav ailable Shira Shi PA-C Primary Care Provider +1- [phone] Jarred Rod MD Primary Care Provider Unav [...] COVID-19? No / Unsure 01/24/2021 11:10 AM EXECUTIVE PASTRY CHEF documented as of this encounter Functional Status [...] st Contact Info) Description 03/14/2024 11:45 AM EXECUTIVE PASTRY CHEF Office Visit [facility] [phone] Marvin Mckeon MD Three [facility] [address] [place] [phone] 03/20/2024 11:30 AM EXECUTIVE PASTRY CHEF Office Visit [facility] Family Medicine - [address] [phone] Abiodun Segura II, MD [address] [place] [phone] documented as of this encounter Visit Diagnoses Not on filedocumented in this encounter Additional Health Concerns Infection Onset Date Last Indicated Resolved Time COVID-19 Rule Out 09/22/2019 09/22/2019 09/24/2019 11:13 PM CDT COVID-19 Rule Out 11/02/2019 11/02/2019 11/03/2019 3:22 PM CDT COVID-19 Rule Out 12/13/2019 12/13/2019 12/14/2019 3:06 PM CDT COVID-19 Confirmed 12/13/2019 12/13/2019 0 12:34 AM EXECUTIVE PASTRY CHEF documented as of this encounter Care Teams Aerial Sprayer Relationship Specialty Start Date End Date Jarred Rod MD PCP - General FAMILY PRACTICE 07/21/15 09/30/20 Shira Shi, JESUSC [address] [place] [phone] PCP - General PHYSICIAN PROJECT ADMINISTRATIVE ASSISTANT 10/01/20 11/17/20 Jarred Rod MD [address] [place] [phone] PCP - General FAMILY PRACTICE 11/18/20 12/05/20 Abiodun Segura II, MD [address] [place] [phone] PCP - General FAMILY PRACTICE 12/06/20 01/16/21 Jarred Rod MD [address] [place] [phone] PCP - General FAMILY PRACTICE 01/17/21 03/08/21 documented as of this encounter
--- OUTSIDE RECORDS SUMMARY | 2024-03-03 01:31 | XMS_ITS | Encounter Summary ---
Author Organization [facility] Address [facility] [place] [address] [place] [address] Care Team Providers Care Paperhanger Pipe Name Role Phone Jarred Fernández MD Primary Care Provider Unav ailable Reason for Referral * Imaging (Emergency) - Closed Specialty Diagnoses / Procedures Referred By Lyla chaney Referred To Contact RADIOLOGY Procedures CT ABD+PEL WO CON Estella Jolley MD [address] [address] Phone: tel: fax: Referral ID Status Reason Start Date Expiration Date Visits Re quested Visits Authorized [id number] Closed 12/24/2018 01/24/2020 1 1 DEALER Reason for Visit * Reason Comments Burning With Urination Back Pain right side Abdominal Pain right side Vaginal Pain Encounter Details Date Type Department Care Team (Late st Contact Info) Description 12/24/2018 12:12 PM KENO DEALER - 12/24/2018 4:53 PM KENO DEALER Emergency [facility] [place] [address] Estella Jolley MD [address] [address] Burning With Urination; Back Pain [...] Comments Blood Pressure 165/98 12/24/2018 4:00 PM KENO DEALER Pulse 85 12/24/2018 2:39 PM KENO DEALER Temperature 36.9 ??C (98.4 ??F) 12/24/2018 12:[address] Respiratory Rate 18 12/24/2018 2:39 PM KENO DEALER Oxygen Saturation 98% 12/24/2018 4:00 PM KENO DEALER Inhaled Oxygen Concentration - - Weight 88.7 kg (195 lb 9.6 oz) 12/24/2018 12:08 PM KENO DEALER Height 167.6 cm (5' 6 ) 12/24/2018 12:08 PM KENO DEALER Body Mass Index 31.57 12/24/2018 12:08 PM KENO DEALER documented in this encounter Discharge Instructions * Discharge Instructions* Estella Jolley MD - 12/24/2018 4:48 PM KENO DEALER Check your blood pressure once a day and keep a log to take to your primary care doctor. Follow up with your urologist at [place] to discuss your flank pain. Return to ER for any new or worsening symptoms. DEALER DEALER * Attachments The following attachments cannot be sent through Care Everywhere. * Flank Pain Discharge Instructions (Micronesian) * High Blood Pressure Discharge Instructions (Micronesian) documented in this encounter Medications at Time [...] Jolley MD - 12/24/2018 1:20 PM CST [place], [place] EMERGENCY DEPARTMENT ENCOUNTER Chief Complaint Chief [...] Patient JP QUINTANA History provided by: Patient student success advisor used: Ruth Lena Jennifer Mcneal is a [...] CLEAN CATCH COLOR YELLOW TRANSPARENCY CLEAR Specific Blanco (U) 1.014 1.001 - 1.030 U PH [...] ABD+PEL WO CON Final Result by User, [id number] (12/24 2079) EXAMINATION: CT Abdomen and Pelvis without contrast [...] advised to f/u with her urologist at [place] regarding flank pain. [BH] ED Course User [...] List Disposition: Discharge Follow-Up: Jarred Fernández MD [address] [place] [phone] In 3 days Jp Goel, acting as a scribe, am personally taking down the notes in the presence ofEstella Jolley MD. Take no action on this note until reviewed and authenticated by the physician. Estella Jolley MD 12/24/18 1649 DEALER * Kaye Pappas NP - 12/24/2018 12:26 PM CST [place], [place] EMERGENCY DEPARTMENT ENCOUNTER Medical Screening Examination [...] Edward Rene MD at 12/24/2018 1:43 PM KENO DEALER DEALER DEALER * Leona Hawk RN - 12/24/2018 12:10 PM CST Pt to triage with complaint of burning with urination, vaginal pain, and right back flank pain thatradiates to the right front, pt has HX of kidney stones and UTI 3 weeks ago and treated with ABX, pt has chronic HX of Kidney issues. DEALER documented in this encounter Plan of Treatment Upcoming Encounters Date Type Department Care Team (Late st Contact Info) Description 03/14/2024 11:45 AM KENO DEALER Office Visit [facility] [phone] Marvin Mckeon MD Three [facility] [address] [place] [address] 03/20/2024 11:30 AM KENO DEALER Office Visit [facility] Medical Group Family Medicine - [place] [address] [place] [phone] Abiodun Segura II, MD [address] [place], [place] [phone] documented as of this encounter Procedures Procedure Name Priority Date/Time Associated Diagnosis Comments CT ABD+PEL WO CON STAT 12/24/2018 1:5 7 PM KENO DEALER URINALYSIS STAT 12/24/2018 12:54 PM KENO DEALER COMPREHENSIVE METABOLIC PANEL STAT 12/24/2018 12:40 PM KENO DEALER CBC W/DIFF AUTOMATED STAT 12/24/2018 12:40 PM KENO DEALER documented in this encounter Results * CT ABD+PEL WO CON (12/24/2018 1:57 PM KENO DEALER) Anatomical Region Laterality Modality Abdomen Computed Tomogra phy 12/24/2018 2:27 PM KENO DEALER Impressions 12/24/2018 2:32 PM KENO DEALER =====IMPRESSION:===== 1. No acute inflammatory change, abscess [...] obstruction nor perforation. Narrative 12/24/2018 2:32 PM KENO DEALER EXAMINATION: CT Abdomen and Pelvis without contrast [...] Result * (ABNORMAL) URINALYSIS (12/24/2018 12:54 PM KENO DEALER) SPECIMEN TYPE URINE CLEAN CATCH 12/24/2018 12:50 PM [facility] COLOR (U) YELLOW 12/24/2018 1:09 PM [facility] TRANSPARENCY CLEAR 12/24/2018 1:09 PM [facility] SPECIFIC GRAVITY (U) 1.014 1.001 - 1.030 12/24/2018 1:09 PM [facility] U PH 5.0 5.0 - 9.0 12/24/2018 1:09 PM [facility] LEUKOCYTES (U) NEGATIVE NEGATIVE 12/24/2018 1:09 PM [facility] NITRITES NEGATIVE NEGATIVE 12/24/2018 1:09 PM [facility] PROTEIN (U) 100(H) <30 MG/DL 12/24/2018 1:09 PM [facility] URINE GLUCOSE 150(A) NEGATIVE MG/DL 12/24/2018 1:09 PM [facility] KETONES MG/DL (U) NEGATIVE NEGATIVE MG/DL 12/24/2018 1:09 PM [facility] UROBILINOGEN NEGATIVE NEGATIVE MG/DL 12/24/2018 1:09 PM [facility] BILIRUBIN (U) NEGATIVE NEGATIVE MG/DL 12/24/2018 1:09 PM [facility] BLOOD (U) NEGATIVE NEGATIVE 12/24/2018 1:09 PM [facility] CULTURE & SENSITIVITY INDICATED? CULTURE IS NOT INDICATED 12/24/2018 1:09 PM [facility] SQUAMOUS EPITHELIALS MANY /LPF 12/24/2018 1:09 PM [facility] MUCUS RARE /LPF 12/24/2018 1:09 PM [facility] WBC/HPF 2 <6 /HPF 12/24/2018 1:09 PM [facility] RBC/HPF 3 <6 /HPF 12/24/2018 1:09 PM [facility] BACTERIA (U) FEW(A) NONE /HPF 12/24/2018 1:09 PM [facility] URINE SPECIMEN OBTAINED BY CLEAN CATCH PROCEDURE / Unknown 12/24/2018 12:54 PM KENO DEALER us Kaye Pappas MATTRESS WEAVER URINE ORDERABLES Final Res ult [facility] [address] [place] [address], [place] [phone] * (ABNORMAL) CBC W/DIFF AUTOMATED (12/24/2018 12:40 PM KENO DEALER) WBC 10.2 4.5 - 11.0 x10'3/uL 12/24/2018 12:57 PM [facility] RBC 4.02(L) 4.20 - 5.40 x10'6/uL 12/24/2018 12:57 PM [facility] HGB 12.1 12.0 - 16.0 G/DL 12/24/2018 12:57 PM [facility] HCT 36.1(L) 38.0 - 48.0 % 12/24/2018 12:57 PM [facility] MCV 89.8 81.0 - 99.0 FL 12/24/2018 12:57 PM [facility] MCH 30.1 27.0 - 31.0 PG 12/24/2018 12:57 PM [facility] MCHC 33.5 32.0 - 36.0 G/DL 12/24/2018 12:57 PM [facility] RDW 13.0 11.5 - 14.5 % 12/24/2018 12:57 PM [facility] PLT 273 130 - 400 x10'3/uL 12/24/2018 12:57 PM [facility] MPV 11.4 9.3 - 12.2 FL 12/24/2018 12:57 PM [facility] DIFFERENTIAL TYPE AUTOMATED DIFFERENTIAL 12/24/2018 12:57 PM [facility] NEUTROPHILS % 67.3 % 12/24/2018 12:57 PM [facility] LYMPHOCYTES % 27.7 % 12/24/2018 12:57 PM [facility] MONOCYTES % 3.3 % 12/24/2018 12:57 PM [facility] EOSINOPHILS 0.9 % 12/24/2018 12:57 PM [facility] BASOPHILS 0.5 % 12/24/2018 12:57 PM [facility] IMMATURE GRANS % 0.3 % 12/25/19 19 12:57 PM [facility] ABS. NEUTROPHILS TOTAL 6.84 1.80 - 7.70 x10'3/uL 12/24/2018 12:57 PM [facility] ABS. LYMPHOCYTES 2.82 1.00 - 4.80 x10'3/uL 12/24/2018 12:57 PM [facility] ABS. MONOCYTES 0.34 0.24 - 0.86 x10'3/uL 12/24/2018 12:57 PM [facility] ABS. EOSINOPHILS 0.09 0.04 - 0.36 x10'3/uL 12/24/2018 12:57 PM [facility] ABS. BASOPHILS 0.05 0.01 - 0.08 x10'3/uL 12/24/2018 12:57 PM [facility] ABS. IMMATURE GRANULOCYTES 0.03 0.00 - 0.49 x10'3/uL 12/24/2018 12:57 PM [facility] 12/24/2018 12:4 0 PM KENO DEALER Kaye Rushing Pappas MATTRESS WEAVER LABORATORY Final Resu lt [facility] [address] [place] [address], * (ABNORMAL) COMPREHENSIVE METABOLIC PANEL (12/24/2018 12:40 PM KENO DEALER) GLUCOSE 274(H) 70 - 99 MG/DL 12/24/2018 1:24 PM [facility] BUN 17 7 - 18 MG/DL 12/24/2018 1:24 PM [facility] CREATININE S/P/B 1.12(H) 0.55 - 1.02 MG/DL 12/24/2018 1:24 PM [facility] SODIUM S/P/B 138 136 - 145 MMOL/L 12/24/2018 1:24 PM [facility] POTASSIUM S/P/B 3.9 3.5 - 5.1 MMOL/L 12/24/2018 1:24 PM [facility] CHLORIDE S/P/B 105 100 - 108 MMOL/L 12/24/2018 1:24 PM [facility] CO2 26.2 21 - 32 MMOL/L 12/24/2018 1:24 PM [facility] CALCIUM S/P/B 8.9 8.5 - 10.1 MG/DL 12/24/2018 1:24 PM [facility] BILIRUBIN TOTAL S/P/B 0.3 0.2 - 1.2 MG/DL 12/24/2018 1:24 PM [facility] TOTAL PROTEIN S/P/B 8.1 6.4 - 8.2 G/DL 12/24/2018 1:24 PM [facility] ALBUMIN S/P/B 3.2(L) 3.4 - 5.0 G/DL 12/24/2018 1:24 PM [facility] AST 15 15 - 37 U/L 12/24/2018 1:24 PM [facility] ALT 21 14 - 55 U/L 12/24/2018 1:24 PM [facility] ALKALINE PHOSPHATASE S/P/B 135 50 - 136 U/L 12/24/2018 1:24 PM [facility] ANION GAP 6.8 5 - 15 MMOL/L 12/24/2018 1:24 PM [facility] BUN CREATININE RATIO 15.2 6 - 26 12/24/2018 1:24 PM [facility] A/G RATIO 0.7(L) 1.0 - 2.0 RATIO 12/24/2018 1:24 PM [facility] EGFR NON-AFR. AMER. 58(L) >90 ML/MIN/1.7 3 M2 12/24/2018 1:24 PM [facility] EGFR AFR. AMER. 68(L) >90 ML/MIN/1.7 3 M2 12/24/2018 1:24 PM [facility] Comment: NOTE: eGFR is not calculated for patients <18 years of age. This is an estimated GFR (CKD EPI) and should not be used for calculating drug doses. 12/24/2018 12:4 0 PM KENO DEALER us Kaye Pappas NP LABORATORY Final Resu lt [facility] [address] [place] [address], [place] [phone] documented in this encounter Visit Diagnoses Diagnosis Right flank pain- Primary Abdominal pain, unspecified site Poorly-controlled hypertension documented in this encounter Administered Medications Inactive Administered Medications - up to 3 most recent administrations Medication Order MAR Action Action Date Dose Rate Site hydrochlorothiazide (HYDRODIURIL) tablet 25 mg 25 mg, Oral, Once, 1 dose, On Sun12/24/18 at 1500 Given 12/24/2018 3:14 PM KENO DEALER 25 mg ibuprofen (MOTRIN) tablet 800 mg 800 mg, Oral, Once, 1 dose, On Sun12/24/18 at 1330 Given 12/24/2018 2:32 PM KENO DEALER 800 mg lisinopril (PRINIVIL,ZESTRIL) tablet 40 mg 40 mg, Oral, Once, 1 dose, On Sun12/24/18 at 1500 Given 12/24/2018 3:14 PM KENO DEALER 40 mg metoprolol tartrate (LOPRESSOR) tablet 100 mg 100 mg, Oral, Once, 1 dose, On Sun12/24/18 at 1500 Given 12/24/2018 3:14 PM KENO DEALER 100 mg ondansetron (ZOFRAN-ODT) disintegrating tablet 4 mg 4 mg, Oral, Once, 1 dose, On Sun12/24/18 at 1330 Given 12/24/2018 2:32 PM KENO DEALER 4 mg documented in this encounter Active and Recently Administered Medications Due to Daylight Saving Time, this section may contain times in both CDT and KENO DEALER. Scheduled Medication Order 12/22/2018 12/23/2018 12/24/2018 hydrochlorothiazide [...] RN) documented in this encounter Care Teams Paperhanger Pipe Relationship Specialty Start Date End Date Jarred Fernández MD PCP - General FAMILY PRACTICE 07/21/15 09/30/20 documented as of this encounter
--- OUTSIDE RECORDS SUMMARY | 2024-03-03 01:31 | XMS_ITS | Encounter Summary ---
Author Organization [facility] Address [address] [place] [address]. [place], [place] [address] [place] [address] Care Team Providers Care Intramural Director Name Role Phone Jarred Rod MD Primary Care Provider Unav ailable Shira Shi PA-C Primary Care Provider +1- [phone] Jarred Rod MD Primary Care Provider Unav [...] No / Unsure 01/24/2021 11:10 AM DIRECTOR HEART documented as of this encounter Functional Status [...] Contact Info) Description 03/14/2024 11:45 AM DIRECTOR HEART Office Visit [facility] [phone] Marvin Mckeon MD Three [facility] [address] [place] [phone] 03/20/2024 11:30 AM DIRECTOR HEART Office Visit [facility] Medical [facility] Family Medicine - [address] [address] Abiodun Segura II, MD [address] [place] [phone] documented as of this encounter Visit Diagnoses Not on filedocumented in this encounter Additional Health Concerns Infection Onset Date Last Indicated Resolved Time COVID-19 Rule Out 09/22/2019 09/22/2019 09/24/2019 11:13 PM CDT COVID-19 Rule Out 11/02/2019 11/02/2019 11/03/2019 3:22 PM CDT COVID-19 Rule Out 12/13/2019 12/13/2019 12/14/2019 3:06 PM CDT COVID-19 Confirmed 12/13/2019 12/13/2019 0 12:34 AM DIRECTOR HEART documented as of this encounter Care Teams Intramural Director Relationship Specialty Start Date End Date Jarred Rod MD PCP - General FAMILY PRACTICE 07/21/15 09/30/20 Shira Shi, JESUSC [address] [place] [phone] PCP - General PHYSICIAN FOAM CHARGER 10/01/20 11/17/20 Jarred Rod MD [address] [place] [phone] PCP - General FAMILY PRACTICE 11/18/20 12/05/20 Abiodun Segura II, MD [address] [place] [address] PCP - General FAMILY PRACTICE 12/06/20 01/16/21 Jarred Rod MD [address] [place] [phone] PCP - General FAMILY PRACTICE 01/17/21 03/08/21 documented as of this encounter
--- OUTSIDE RECORDS SUMMARY | 2024-03-03 01:31 | XMS_ITS | Encounter Summary ---
Author Organization [facility] Address [address] [place] [address]. [place], [place] [address] [place] [address] Care Team Providers Care Journeyman Pressman Name Role Phone Jarred Rod MD Primary Care Provider Unav ailable Shira Shi PA-C Primary Care Provider +1- [phone] Jarred Rod MD Primary Care Provider Unav [...] COVID-19? No / Unsure 01/24/2021 11:10 AM SURFACE GRINDING MACHINE HAND documented as of this encounter Functional [...] st Contact Info) Description 03/14/2024 11:45 AM SURFACE GRINDING MACHINE HAND Office Visit [facility] [phone] Marvin Mckoen MD Three [facility] [address] [place] [phone] 03/20/2024 11:30 AM SURFACE GRINDING MACHINE HAND Office Visit [facility] Medical [facility] Family Medicine - [address] [address] Abiodun Segura II, MD [address] [place] [phone] documented as of this encounter Visit Diagnoses Not on filedocumented in this encounter Additional Health Concerns Infection Onset Date Last Indicated Resolved Time COVID-19 Rule Out 09/22/2019 09/22/2019 09/24/2019 11:13 PM CDT COVID-19 Rule Out 11/02/2019 11/02/2019 11/03/2019 3:22 PM CDT COVID-19 Rule Out 12/13/2019 12/13/2019 12/14/2019 3:06 PM CDT COVID-19 Confirmed 12/13/2019 12/13/2019 0 12:34 AM SURFACE GRINDING MACHINE HAND documented as of this encounter Care Teams Journeyman Pressman Relationship Specialty Start Date End Date Jarred Rod MD PCP - General FAMILY PRACTICE 07/21/15 09/30/20 Shira Shi, JESUSC [address] [place] [phone] PCP - General PHYSICIAN PROCUREMENT CLERK 10/01/20 11/17/20 Jarred Rod MD [address] [place] [phone] PCP - General FAMILY PRACTICE 11/18/20 12/05/20 Abiodun Segura II, MD [address] [place] [phone] PCP - General FAMILY PRACTICE 12/06/20 01/16/21 Jarred Rod MD [address] [place] [phone] PCP - General FAMILY PRACTICE 01/17/21 03/08/21 documented as of this encounter
--- OUTSIDE RECORDS SUMMARY | 2024-03-03 01:31 | XMS_ITS | Encounter Summary ---
Author Organization [facility] Address [address] [place] [address]. [place], [place] [address] [place] [address] Care Team Providers Care Otolaryngology Surgeon Name Role Phone Jarred Rod MD Primary Care Provider Unav ailable Shira Shi PA-C Primary Care Provider +1- [phone] Jarred Rod MD Primary Care Provider Unav [...] COVID-19? No / Unsure 01/24/2021 11:10 AM IT SALES EXECUTIVE documented as of this encounter Functional [...] st Contact Info) Description 03/14/2024 11:45 AM IT SALES EXECUTIVE Office Visit [facility] [phone] Marvin Mckeon MD Three [facility] [address] [place] [address] 03/20/2024 11:30 AM IT SALES EXECUTIVE Office Visit [facility] Family Medicine - [place] [address] [place] [phone] Abiodun Segura II, MD [address] [place], [place] [phone] documented as of this encounter Procedures Procedure [...] COVID-19 Confirmed 12/13/2019 12/13/2019 0 12:34 AM IT SALES EXECUTIVE documented as of this encounter Care Teams Otolaryngology Surgeon Relationship Specialty Start Date End Date Jarred Rod MD PCP - General FAMILY PRACTICE 07/21/15 09/30/20 Shira Shi PA-C [address] [place] [phone] PCP - General PHYSICIAN GEOTHERMAL FIELD TECHNICIAN 10/01/20 11/17/20 Jarred Rod MD [address] [place] [phone] PCP - General FAMILY PRACTICE 11/18/20 12/05/20 Abiodun Segura II, MD [address] [place] [phone] PCP - General FAMILY PRACTICE 12/06/20 01/16/21 Jarred Rod MD [address] [place] [phone] PCP - General FAMILY PRACTICE 01/17/21 03/08/21 documented as of this encounter
--- OUTSIDE RECORDS SUMMARY | 2024-03-03 01:31 | XMS_ITS | Encounter Summary ---
Author Organization [facility] Address [address] [place] [address]. [place], [place] [phone] [place] [address] Care Team Providers Care Quarter Seamer Name Role Phone Jarred Rod MD Primary Care Provider Unav ailable Shira Shi PA-C Primary Care Provider +1- [phone] Jarred Rod MD Primary Care Provider Unav [...] COVID-19? No / Unsure 01/24/2021 11:10 AM PHP SOFTWARE ENGINEER documented as of this encounter Functional [...] st Contact Info) Description 03/14/2024 11:45 AM PHP SOFTWARE ENGINEER Office Visit [facility] [phone] Marvin Mckeon MD Three [facility] [address] [place] [phone] 03/20/2024 11:30 AM PHP SOFTWARE ENGINEER Office Visit [facility] Medical Group Family Medicine - [address] [address] Abiodun Segura II, MD [address] [place] [address] [phone] documented as of this encounter Visit Diagnoses Not on filedocumented in this encounter Additional Health Concerns Infection Onset Date Last Indicated Resolved Time COVID-19 Rule Out 09/22/2019 09/22/2019 09/24/2019 11:13 PM CDT COVID-19 Rule Out 11/02/2019 11/02/2019 11/03/2019 3:22 PM CDT COVID-19 Rule Out 12/13/2019 12/13/2019 12/14/2019 3:06 PM CDT COVID-19 Confirmed 12/13/2019 12/13/2019 0 12:34 AM PHP SOFTWARE ENGINEER documented as of this encounter Care Teams Quarter Seamer Relationship Specialty Start Date End Date Jarred Rod MD PCP - General FAMILY PRACTICE 07/21/15 09/30/20 Shira Shi, JESUSC [address] [place] [phone] PCP - General PHYSICIAN ADVISORY APPLICATION DEVELOPER 10/01/20 11/17/20 Jarred Rod MD [address] [place] [phone] PCP - General FAMILY PRACTICE 11/18/20 12/05/20 Abiodun Segura II, MD [address] [place] [phone] PCP - General FAMILY PRACTICE 12/06/20 01/16/21 Jarred Rod MD [address] [place] [phone] PCP - General FAMILY PRACTICE 01/17/21 03/08/21 documented as of this encounter
--- OUTSIDE RECORDS SUMMARY | 2024-03-03 01:32 | XMS_ITS | Encounter Summary ---
Author Organization [facility] Address [address] [place] [address]. [place], [place] [address] [place] [address] Care Team Providers Care Gullet Slitter Name Role Phone Jarred Rod MD Primary Care Provider Unav ailable Crispin Gomez MD Unavailable [phone] Shira Shi PA-C Primary Care Provider [phone]- [phone] Jarred Rod MD Primary Care Provider Unav [...] COVID-19? No / Unsure 01/24/2021 11:10 AM PROCESS IMPROVEMENT ANALYST documented as of this encounter Functional [...] Contact Info) Description 03/14/2024 11:45 AM PROCESS IMPROVEMENT ANALYST Office Visit [facility] [phone] Marvin Mckeon MD [facility] [address] [place] [phone] 03/20/2024 11:30 AM PROCESS IMPROVEMENT ANALYST Office Visit [facility] Family Medicine - [address] [phone] Abiodun Segura II, MD [address] [place] [address] [phone] documented as of this encounter Visit Diagnoses Not on filedocumented in this encounter Additional Health Concerns Infection Onset Date Last Indicated Resolved Time COVID-19 Rule Out 09/22/2019 09/22/2019 09/24/2019 11:13 PM CDT COVID-19 Rule Out 11/02/2019 11/02/2019 11/03/2019 3:22 PM CDT COVID-19 Rule Out 12/13/2019 12/13/2019 12/14/2019 3:06 PM CDT COVID-19 Confirmed 12/13/2019 12/13/2019 0 12:34 AM PROCESS IMPROVEMENT ANALYST documented as of this encounter Care Teams Gullet Slitter Relationship Specialty Start Date End Date Jarred Rod MD PCP - General FAMILY PRACTICE 07/21/15 09/30/20 Shira Shi PA-C [address] [place] [address] PCP - General PHYSICIAN HR SYSTEMS ANALYST 10/01/20 11/17/20 Jarred Rod MD [address] [place] [phone] PCP - General FAMILY PRACTICE 11/18/20 12/05/20 Abiodun Segura II, MD [address] [place] [phone] PCP - General FAMILY PRACTICE 12/06/20 01/16/21 Jarred Rod MD [address] [place] [phone] PCP - General FAMILY PRACTICE 01/17/21 03/08/21 Crispin Gomez MD [facility] [address] [place] [address] [place] Data Systems Manager INTERNAL MEDICINE 07/21/15 documented as of this encounter
--- OUTSIDE RECORDS SUMMARY | 2024-03-03 01:32 | XMS_ITS | Encounter Summary ---
Author Organization [facility] Address [address] [place] [address]. [place], [place] [address] [place] [address] Care Team Providers Care Front End Technician Name Role Phone Jarred Rod MD Primary Care Provider Unav ailable Shira Shi PA-C Primary Care Provider +1- [phone] Jarred Rod MD Primary Care Provider Unav [...] COVID-19? No / Unsure 01/24/2021 11:10 AM CELL BUILDER documented as of this encounter Functional Status [...] Contact Info) Description 03/14/2024 11:45 AM CELL BUILDER Office Visit [facility] [address] Marvin Mckeon MD [facility] [address] [place] [address] 03/20/2024 11:30 AM CELL BUILDER Office Visit [facility] Medical Group Family Medicine - [place] 100 [place] [address] Abiodun Segura II, MD 100 [place] [address] documented as of this encounter Procedures Procedure [...] COVID-19 Confirmed 12/13/2019 12/13/2019 0 12:34 AM CELL BUILDER documented as of this encounter Care Teams Front End Technician Relationship Specialty Start Date End Date Jarred Rod MD PCP - General FAMILY PRACTICE 07/21/15 09/30/20 Shira Shi PA-C [address] [place] [address] PCP - General PHYSICIAN FIBRE CEMENT MOULDER 10/01/20 11/17/20 Jarred Rod MD [address] [place] [address] PCP - General FAMILY PRACTICE 11/18/20 12/05/20 Abiodun Segura II, MD [address] [place] [address] PCP - General FAMILY PRACTICE 12/06/20 01/16/21 Jarred Rod MD [address] [place], [place] [address], [place] [address] PCP - General FAMILY PRACTICE 01/17/21 03/08/21 documented as of this encounter
--- OUTSIDE RECORDS SUMMARY | 2024-03-03 01:32 | XMS_ITS | Encounter Summary ---
Author Organization [facility] Address [address] [place] [address]. [place] [address] [place] [address] Care Team Providers Care Coffee Maker Servicer Name Role Phone Jarred Rod MD Primary Care Provider Unav Crispin Peres MD Unavailable [phone] Encounter Details Date Type Department Care Team (Late st Contact Info) Description 02/02/2016 Orders Only [facility] AT PHI [address] [place] [address] Donna Linton, DO [address] [facility] [place] [address] Social History Tobacco Use Types Packs/Day Years [...] Contact Info) Description 03/14/2024 11:45 AM SURGICAL SCRUB TECHNOLOGIST Office Visit [facility] [address] Marvin Mckeon MD Three [facility] [address] [place] [address] 03/20/2024 11:30 AM SURGICAL SCRUB TECHNOLOGIST Office Visit [facility] Medical Group Family Medicine - 100 [place] [address] Abiodun Segura II, MD 100 [place] [address] documented as of this encounter Procedures Procedure Name Priority Date/Time Associated Diagnosis Comments CARDIOLOGY GENERIC 02/02/2016 1: 10 PM SURGICAL SCRUB TECHNOLOGIST documented in this encounter Results * CARDIOLOGY GENERIC (02/02/2016 1:10 PM SURGICAL SCRUB TECHNOLOGIST) 02/02/2016 1:10 PM SURGICAL SCRUB TECHNOLOGIST Narrative [facility] RADIOLOGY - 02/02/2016 12:00 AM SURGICAL SCRUB TECHNOLOGIST ? LENA YOUNGBLOOD MD: DONNA LINTON DO ?? Acct: [id number] ?? Admit/Service Date: 02/02/16 Discharge Date: ?? : 1970 Pt Type: REG ER ?? Sex: F Ord [facility] ?[address] ?Test Date: ?2016-02-02 ?? Pat Name: ? LENA YOUNGBLOOD ?Department: CARD ?? 41 ? Room: ? Gender: ? Female ? Medical Sales Consultant: ?? PL ?? : ?1970 ? Requested By: DONNA LINTON DONNA LINTON ?? Order Number: [id number] ?Reading MD: ?? Paban Janes ?Measurements ?? Intervals ?Maynard ? Rate: ? 85 ? P: ?46 ?? DE: ? 169 ?QRS: ?21 ?? QRSD: ? 81 ? T: ?5 ?? QT: ? 362 ? QTc: ?431 ?Interpretive Statements ?? SINUS RHYTHM ?? NONSPECIFIC T-WAVE ABNORMALITY ?? Compared to ECG 01/21/2016 08:53:35 ?? No significant changes ?? ICAL SCRUB TECHNOLOGIST ? Procedure Note Leonel Marrero MD - 02/02/2016 LENA YOUNGBLOOD Ordering MD: DONNA LINTON DO Acct: [id number] Admit/Service Date: 02/02/16 Discharge Date: : 1970 Pt Type: REG ER Sex: F Ord Site: [address] Test Date: 2016-02-02 Pat Name: LENA YOUNGBLOOD Department: CARD 41 Room: Gender: Female Medical Sales Consultant: PL : 1970 Requested By: DONNA HILTON Order Number: [id number] Reading MD: Leonel Marrero Measurements Intervals Maynard Rate: 85 P: 46 DE: 169 QRS: 21 QRSD: 81 T: 5 QT: 362 QTc: 431 Interpretive Statements SINUS RHYTHM NONSPECIFIC T-WAVE ABNORMALITY Compared to ECG 01/21/2016 08:53:35 No significant changes ICAL SCRUB TECHNOLOGIST us Donna Linton DO [facility] Final Resul t [facility] RADIOLOGY documented in this encounter Visit Diagnoses Not on filedocumented in this encounter Care Teams Coffee Maker Servicer Relationship Specialty Start Date End Date Jarred Rod MD PCP - General FAMILY PRACTICE 07/21/15 09/30/20 Crispin Gomez MD [id number] [place] [address] Graham Repairer Art Objects INTERNAL MEDICINE 07/21/15 documented as of this encounter
--- OUTSIDE RECORDS SUMMARY | 2024-03-03 01:32 | XMS_ITS | Encounter Summary ---
Author Organization [facility] Address [address] [place] [address]. [place] [address] [place] [address] Care Team Providers Care Java Software Developer Name Role Phone Jarred Rod MD Primary Care Provider Unav ailable Reason for Visit * Reason Onset Date Comments Appointment Request 07/02/2017 Encounter Details Date Type Department Care Team (Late st Contact Info) Description 07/02/2017 Telephone [facility], [facility] [address] [place], [place] [address] Huebrt Barrera MD [facility]. [facility] [address] [place] [address] Appointment Request Social History Tobacco [...] CDT I had faxed a referral to [facility] for Lena. I received a call from Roxana in the wound care center and she said that they do not take [place]. I then called [facility] and they said that they have to have on staff to sign orders. Dr. Barrera is not on staff at [facility]. Lena's PCP is not on staff at [facility] either. I called Lena and told her this and she said that she had went to [facility] before for wound care. I offered to see if she would like to go to the Wound Care center in [place]. She refused to go to [facility]. She said that she would call [facility] and call me back. No further questions were asked and she voiced unders tanding. documented in this encounter Plan of Treatment Upcoming Encounters Date Type Department Care Team (Late st Contact Info) Description 03/14/2024 11:45 AM SANDBLAST OR SHOTBLAST EQUIPMENT TENDER Office Visit [facility] [address] Marvin Mckeon MD [facility] [address] [place] [address] 03/20/2024 11:30 AM SANDBLAST OR SHOTBLAST EQUIPMENT TENDER Office Visit [facility] Medical Group Family Medicine - [address] [phone] Abiodun Segura II, MD [address] [place] [address] documented as of this encounter Visit Diagnoses Not on filedocumented in this encounter Care Teams Java Software Developer Relationship Specialty Start Date End Date Jarred Rod MD PCP - General FAMILY PRACTICE 07/21/15 09/30/20 documented as of this encounter
--- OUTSIDE RECORDS SUMMARY | 2024-03-03 01:32 | XMS_ITS | Encounter Summary ---
Author Organization [facility] Address [address] [place] [address]. [place] [address] [place] [address] Care Team Providers Care Training Administrator Name Role Phone Jarred Rod MD Primary Care Provider Unav ailable Encounter Details Date Type Department Care Team (Late Contact Info) Description 06/28/2017 Orders Only [facility] at [facility], [facility] [address] [place] [address] Hubert Barrera MD [facility]. 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
--- OUTSIDE RECORDS SUMMARY | 2024-03-03 01:32 | XMS_ITS | Encounter Summary ---
Author Organization [facility] Address [address] [place] [address]. [place], [place] [address] [place] [address] Care Team Providers Care Health Record Technician Name Role Phone Jarred Rod MD Primary Care Provider Unav ailable Shira Shi PA-C Primary Care Provider [phone]- [phone] Jarred Rod MD Primary Care Provider Unav [...] COVID-19? No / Unsure 01/24/2021 11:10 AM LIBRARIAN SPECIAL LIBRARY documented as of this encounter Functional Status [...] st Contact Info) Description 03/14/2024 11:45 AM LIBRARIAN SPECIAL LIBRARY Office Visit [facility] [address] Marvin Mckeon MD [facility] [address] [place] [address] 03/20/2024 11:30 AM LIBRARIAN SPECIAL LIBRARY Office Visit [facility] Medical Group Family Medicine - [place] 100 [place] [address] Abiodun Segura II, MD 100 [place] [address] documented as of this encounter Procedures Procedure [...] COVID-19 Confirmed 12/13/2019 12/13/2019 0 12:34 AM LIBRARIAN SPECIAL LIBRARY documented as of this encounter Care Teams Health Record Technician Relationship Specialty Start Date End Date Jarred Rod MD PCP - General FAMILY PRACTICE 07/21/15 09/30/20 Shira Shi PA-C [address] [place] [address] PCP - General PHYSICIAN TRAY LINE WORKER 10/01/20 11/17/20 Jarred Rod MD [address] [place] [address] PCP - General FAMILY PRACTICE 11/18/20 12/05/20 Abiodun Segura II, MD [address] [place] [address] PCP - General FAMILY PRACTICE 12/06/20 01/16/21 Jarred Rod MD [address] [place] [address] PCP - General FAMILY PRACTICE 01/17/21 03/08/21 documented as of this encounter
--- OUTSIDE RECORDS SUMMARY | 2024-03-03 01:32 | XMS_ITS | Encounter Summary ---
Author Organization [facility] Address [address] [place] [address]. [place], [place] [address] [place] [address] Care Team Providers Care Fire Protection Fabricator Name Role Phone Jarred Rod MD Primary Care Provider Unav ailable Crispin Gomez MD Unavailable [phone] Shira Shi PA-C Primary Care Provider [phone]- [phone] Jarred Rod MD Primary Care Provider Unav [...] No / Unsure 01/24/2021 11:10 AM SUPERVISOR GARAGE documented as of this encounter Functional Status [...] Contact Info) Description 03/14/2024 11:45 AM SUPERVISOR GARAGE Office Visit [facility] [address] Marvin Mckeon MD Three [facility] [address] [place] [address] 03/20/2024 11:30 AM SUPERVISOR GARAGE Office Visit [facility] Medical Group Family Medicine - [place] 100 [place] [address] Abiodun Segura II, MD 100 [place], [place] [phone] documented as of this encounter Procedures Procedure [...] Confirmed 12/13/2019 12/13/2019 0 12:34 AM SUPERVISOR GARAGE documented as of this encounter Care Teams Fire Protection Fabricator Relationship Specialty Start Date End Date Jarred Rod MD PCP - General FAMILY PRACTICE 07/21/15 09/30/20 Shira Shi PA-C [address] [place] [address] PCP - General PHYSICIAN MEDICAL INSTRUMENT CABLE FABRICATOR 10/01/20 11/17/20 Jarred Rod MD [address] [place] [address] PCP - General FAMILY PRACTICE 11/18/20 12/05/20 Abiodun Segura II, MD [address] [place] [address] PCP - General FAMILY PRACTICE 12/06/20 01/16/21 Jarred Rod MD [address] [place] [address] PCP - General FAMILY PRACTICE 01/17/21 03/08/21 Crispin Gomez MD [facility] [address] [place] [address] [place] Staff Genetic Counselor INTERNAL MEDICINE 07/21/15 documented as of this encounter
--- OUTSIDE RECORDS SUMMARY | 2024-03-03 01:32 | XMS_ITS | Encounter Summary ---
Author Organization [facility] Address [address] [place] [address]. [place], [place] [address] [place] [address] Care Team Providers Care Curb Setter Name Role Phone Jarred Rod MD Primary Care Provider Unav ailable Shira Shi PA-C Primary Care Provider [phone]- [phone] Jarred Rod MD Primary Care Provider Unav [...] COVID-19? No / Unsure 01/24/2021 11:10 AM PHOTOLITHOGRAPHER documented as of this encounter Functional Status [...] st Contact Info) Description 03/14/2024 11:45 AM PHOTOLITHOGRAPHER Office Visit [facility] [address] Marvin Mckeon MD Three [facility] [address] [place] [phone] 03/20/2024 11:30 AM PHOTOLITHOGRAPHER Office Visit [facility] Medical Group Family Medicine - [address] [address] Abiodun Segura II, MD [address] [place] [phone] documented as of this encounter Visit Diagnoses Not on filedocumented in this encounter Additional Health Concerns Infection Onset Date Last Indicated Resolved Time COVID-19 Rule Out 09/22/2019 09/22/2019 09/24/2019 11:13 PM CDT COVID-19 Rule Out 11/02/2019 11/02/2019 11/03/2019 3:22 PM CDT COVID-19 Rule Out 12/13/2019 12/13/2019 12/14/2019 3:06 PM CDT COVID-19 Confirmed 12/13/2019 12/13/2019 0 12:34 AM PHOTOLITHOGRAPHER documented as of this encounter Care Teams Curb Setter Relationship Specialty Start Date End Date Jarred Rod MD PCP - General FAMILY PRACTICE 07/21/15 09/30/20 Shira Shi, JESUSC [address] [place] [address] PCP - General PHYSICIAN FURNITURE MANAGER 10/01/20 11/17/20 Jarred Rod MD [address] [place] [address] PCP - General FAMILY PRACTICE 11/18/20 12/05/20 Abiodun Segura II, MD [address] [place] [address] PCP - General FAMILY PRACTICE 12/06/20 01/16/21 Jarred Rod MD [address] [place] [address] PCP - General FAMILY PRACTICE 01/17/21 03/08/21 documented as of this encounter
--- OUTSIDE RECORDS SUMMARY | 2024-03-03 01:32 | XMS_ITS | Encounter Summary ---
Author Organization [facility] Address [address] [place] [address]. [place], [place] [address] [place] [address] Care Team Providers Care Software Installer Name Role Phone Jarred Rod MD Primary Care Provider Unav ailable Crispin Gomez MD Unavailable [phone] Shira Shi PA-C Primary Care Provider [phone]- [phone] Jarred Rod MD Primary Care Provider Unav [...] COVID-19? No / Unsure 01/24/2021 11:10 AM FRAMING MILL OPERATOR HELPER documented as of this encounter [...] st Contact Info) Description 03/14/2024 11:45 AM FRAMING MILL OPERATOR HELPER Office Visit [facility] [address] Marvin Mckeon MD [facility] [address] [place] [phone] 03/20/2024 11:30 AM FRAMING MILL OPERATOR HELPER Office Visit [facility] Medical Group Family Medicine - [address] [phone] Abiodun Segura II, MD [address] [place] [phone] documented as of this encounter Visit Diagnoses Not on filedocumented in this encounter Additional Health Concerns Infection Onset Date Last Indicated Resolved Time COVID-19 Rule Out 09/22/2019 09/22/2019 09/24/2019 11:13 PM CDT COVID-19 Rule Out 11/02/2019 11/02/2019 11/03/2019 3:22 PM CDT COVID-19 Rule Out 12/13/2019 12/13/2019 12/14/2019 3:06 PM CDT COVID-19 Confirmed 12/13/2019 12/13/2019 0 12:34 AM FRAMING MILL OPERATOR HELPER documented as of this encounter Care Teams Software Installer Relationship Specialty Start Date End Date Jarred Rod MD PCP - General FAMILY PRACTICE 07/21/15 09/30/20 Shira Shi PA-C [address] [place] [address] PCP - General PHYSICIAN DISCHARGE RN 10/01/20 11/17/20 Jarred Rod MD [address] [place] [address] PCP - General FAMILY PRACTICE 11/18/20 12/05/20 Abiodun Segura II, MD [address] [place] [address] PCP - General FAMILY PRACTICE 12/06/20 01/16/21 Jarred Rod MD [address] [place] [address] PCP - General FAMILY PRACTICE 01/17/21 03/08/21 Crispin Gomez MD [facility] [address] [place] [address] [place] Snuff Blender INTERNAL MEDICINE 07/21/15 documented as of this encounter
--- OUTSIDE RECORDS SUMMARY | 2024-03-03 01:32 | XMS_ITS | Encounter Summary ---
Author Organization [facility] Address [address] [place] [address]. [place] [address] [place] [address] Care Team Providers Care Tufting Creeler Name Role Phone Jarred Rod MD Primary Care Provider Unav Crispin Peres MD Unavailable [phone] Encounter Details Date Type Department Care Team (Late st Contact Info) Description 12/23/2016 Scan [facility] [place] [address] , Generic ConversionMD Social History [...] st Contact Info) Description 03/14/2024 11:45 AM DRIVER COURIER Office Visit [facility] [address] Marvin Mckeon MD Three [facility] [address] [place] [address] 03/20/2024 11:30 AM DRIVER COURIER Office Visit [facility] Medical Group Family Medicine - [place] 100 [place] [phone] Abiodun Segura II, MD 100 [place] [address] documented as of this encounter Visit Diagnoses Not on filedocumented in this encounter Care Teams Tufting Creeler Relationship Specialty Start Date End Date Jarred Rod MD PCP - General FAMILY PRACTICE 07/21/15 09/30/20 Crispin Gomez MD [facility] [address] [place] [address] Fermin Warehouse Driver INTERNAL MEDICINE 07/21/15 documented as of this encounter
--- OUTSIDE RECORDS SUMMARY | 2024-03-03 01:32 | XMS_ITS | Encounter Summary ---
Author Organization [facility] Address [address] [place] [address]. [place], [place] [address] [place] [address] Care Team Providers Care Grinder And Plater Name Role Phone Jarred Rod MD Primary Care Provider Unav ailable Shira Shi PA-C Primary Care Provider [phone]- [phone] Jarred Rod MD Primary Care Provider Unav [...] COVID-19? No / Unsure 01/24/2021 11:10 AM CAMP DISHWASHER documented as of this encounter Functional Status [...] st Contact Info) Description 03/14/2024 11:45 AM CAMP DISHWASHER Office Visit [facility] [address] Marvin Mckeon MD Three [facility] [address] [place] [phone] 03/20/2024 11:30 AM CAMP DISHWASHER Office Visit [facility] Medical Group Family Medicine - [address] [address] Abiodun Segura II, MD [address] [place] [phone] documented as of this encounter Visit Diagnoses Not on filedocumented in this encounter Additional Health Concerns Infection Onset Date Last Indicated Resolved Time COVID-19 Rule Out 09/22/2019 09/22/2019 09/24/2019 11:13 PM CDT COVID-19 Rule Out 11/02/2019 11/02/2019 11/03/2019 3:22 PM CDT COVID-19 Rule Out 12/13/2019 12/13/2019 12/14/2019 3:06 PM CDT COVID-19 Confirmed 12/13/2019 12/13/2019 0 12:34 AM CAMP DISHWASHER documented as of this encounter Care Teams Grinder And Plater Relationship Specialty Start Date End Date Jarred Rod MD PCP - General FAMILY PRACTICE 07/21/15 09/30/20 Shira Shi, JESUSC [address] [place] [address] PCP - General PHYSICIAN BOILER REPAIR SUPERVISOR 10/01/20 11/17/20 Jarred Rod MD [address] [place] [address] PCP - General FAMILY PRACTICE 11/18/20 12/05/20 Abiodun Segura II, MD [address] [place] [address] PCP - General FAMILY PRACTICE 12/06/20 01/16/21 Jarred Rod MD [address] [place] [address] PCP - General FAMILY PRACTICE 01/17/21 03/08/21 documented as of this encounter
--- OUTSIDE RECORDS SUMMARY | 2024-03-03 01:32 | XMS_ITS | Encounter Summary ---
Author Organization [facility] Address [address] [place] [address]. [place] [address] [place] [address] Care Team Providers Care Enrollment Services Dean Name Role Phone Jarred Rod MD Primary Care Provider Unav ailable Encounter Details Date Type Department Care Team (Late st Contact Info) Description 07/03/2017 Scan [facility] at [facility] [address] [place] [address] Scanned, Documents Social History Tobacco [...] st Contact Info) Description 03/14/2024 11:45 AM RUG LAYER Office Visit [facility] [address] Marvin Mckeon MD [facility] [address] [place] [address] 03/20/2024 11:30 AM RUG LAYER Office Visit [facility] Medical Group Family Medicine - [place] 100 [place] [phone] Abiodun Segura II, MD 100 [place] [address] documented as of this encounter Visit Diagnoses Not on filedocumented in this encounter Care Teams Enrollment Services Dean Relationship Specialty Start Date End Date Jarred Rod MD PCP - General FAMILY PRACTICE 07/21/15 09/30/20 documented as of this encounter
--- OUTSIDE RECORDS SUMMARY | 2024-03-03 01:32 | XMS_ITS | Encounter Summary ---
Author Organization [facility] Address [address] [place] [address]. [place], [place] [address] [place] [address] Care Team Providers Care Gas Maker Name Role Phone Jarred Rod MD Primary Care Provider Unav ailable Crispin Gomez MD Unavailable [phone] Shira Shi PA-C Primary Care Provider [phone]- [phone] Jarred Rod MD Primary Care Provider Unav [...] COVID-19? No / Unsure 01/24/2021 11:10 AM AGENCY SALES REPRESENTATIVE documented as of this encounter Functional [...] st Contact Info) Description 03/14/2024 11:45 AM AGENCY SALES REPRESENTATIVE Office Visit [facility] [address] Marvin Mckeon MD Three [facility] [address] [place] [address] 03/20/2024 11:30 AM AGENCY SALES REPRESENTATIVE Office Visit [facility] Medical Group Family Medicine - [place] 100 [place] [phone] Abiodun Segura II, MD 100 [place], [place] [phone] documented as of this encounter Procedures Procedure [...] COVID-19 Confirmed 12/13/2019 12/13/2019 0 12:34 AM AGENCY SALES REPRESENTATIVE documented as of this encounter Care Teams Gas Maker Relationship Specialty Start Date End Date Jarred Rod MD PCP - General FAMILY PRACTICE 07/21/15 09/30/20 Shira Shi PA-C [address] [place] [address] PCP - General PHYSICIAN WASTEWATER PROJECT MANAGER 10/01/20 11/17/20 Jarred Rod MD [address] [place] [address] PCP - General FAMILY PRACTICE 11/18/20 12/05/20 Abiodun Segura II, MD [address] [place] [address] PCP - General FAMILY PRACTICE 12/06/20 01/16/21 Jarred Rod MD [address] [place] [address] PCP - General FAMILY PRACTICE 01/17/21 03/08/21 Crispin Gomez MD Three [facility]. [address] [address] Manning Engineering Manager Electronics INTERNAL MEDICINE 07/21/15 documented as of this encounter
--- OUTSIDE RECORDS SUMMARY | 2024-03-03 01:32 | XMS_ITS | Encounter Summary ---
Author Organization [facility] Address [address] [place] [address]. [place], [place] [address] [place] [address] Care Team Providers Care Fundraising Assistant Name Role Phone Jarred Rod MD Primary Care Provider Unav ailable Crispin Gomez MD Unavailable [phone] Shira Shi PA-C Primary Care Provider [phone]- [phone] Jarred Rod MD Primary Care Provider Unav [...] COVID-19? No / Unsure 01/24/2021 11:10 AM VINYL INSTALLER documented as of this encounter Functional [...] st Contact Info) Description 03/14/2024 11:45 AM VINYL INSTALLER Office Visit [facility] [phone] Marvin Mckeon MD Three [facility] [address] [place] [address] 03/20/2024 11:30 AM VINYL INSTALLER Office Visit [facility] Family Medicine - [place] [address] [place] [address] Abiodun Segura II, MD 100 [place], [place] [phone] documented as of this encounter Procedures Procedure [...] COVID-19 Confirmed 12/13/2019 12/13/2019 0 12:34 AM VINYL INSTALLER documented as of this encounter Care Teams Fundraising Assistant Relationship Specialty Start Date End Date Jarred Rod MD PCP - General FAMILY PRACTICE 07/21/15 09/30/20 Shira Shi PA-C [address] [place] [address] PCP - General PHYSICIAN GOVERNMENT PROFESSOR 10/01/20 11/17/20 Jarred Rod MD [address] [place] [address] PCP - General FAMILY PRACTICE 11/18/20 12/05/20 Abiodun Segura II, MD [address] [place] [address] PCP - General FAMILY PRACTICE 12/06/20 01/16/21 Jarred Rod MD [address] [place] [address] PCP - General FAMILY PRACTICE 01/17/21 03/08/21 Crispin Gomez MD [facility]. [facility] [address] [place] [address] [place] Legal Librarian INTERNAL MEDICINE 07/21/15 documented as of this encounter
--- OUTSIDE RECORDS SUMMARY | 2024-03-03 01:32 | XMS_ITS | Encounter Summary ---
Author Organization [facility] Address [address] [place] [address]. [place], [place] [id number] [place] [address] Care Team Providers Care Medical Transcriber Name Role Phone Jarred Rod MD Primary Care Provider Unav ailable Shira Shi PA-C Primary Care Provider [phone]- [phone] Jarred Rod MD Primary Care Provider Unav [...] COVID-19? No / Unsure 01/24/2021 11:10 AM OIL HEATERMAN documented as of this encounter Functional Status [...] Contact Info) Description 03/14/2024 11:45 AM OIL HEATERMAN Office Visit [facility]-[address] [phone] Marvin Mckeon MD Three [facility] [address] [place] [address] 03/20/2024 11:30 AM OIL HEATERMAN Office Visit [facility] Family Medicine - [place] 100 [place] [phone] Abiodun Segura II, MD 100 [place], [place] [phone] documented as of this encounter Procedures Procedure [...] COVID-19 Confirmed 12/13/2019 12/13/2019 0 12:34 AM OIL HEATERMAN documented as of this encounter Care Teams Medical Transcriber Relationship Specialty Start Date End Date Jarred Rod MD PCP - General FAMILY PRACTICE 07/21/15 09/30/20 Shira Shi PA-C [address] [place] [address] PCP - General PHYSICIAN CHANNEL MACHINE OPERATOR 10/01/20 11/17/20 Jarred Rod MD [address] [place] [address] PCP - General FAMILY PRACTICE 11/18/20 12/05/20 Abiodun Segura II, MD [address] [place] [address] PCP - General FAMILY PRACTICE 12/06/20 01/16/21 Jarred Rod MD [address] [place] [address] PCP - General FAMILY PRACTICE 01/17/21 03/08/21 documented as of this encounter
--- OUTSIDE RECORDS SUMMARY | 2024-03-03 01:32 | XMS_ITS | Encounter Summary ---
Author Organization [facility] Address [address] [place] [address]. [place], [place] [address] [place] [address] Care Team Providers Care Counter Cutter Name Role Phone Jarred Rod MD Primary Care Provider Unav ailable Shira Shi PA-C Primary Care Provider [phone] Jarred Rod MD Primary Care Provider Unav [...] / Unsure 01/24/2021 11:10 AM DIRECTOR OF RELIGIOUS LIFE documented as of this encounter Functional Status [...] Info) Description 03/14/2024 11:45 AM DIRECTOR OF RELIGIOUS LIFE Office Visit [facility] [phone] Marvin Mckeon MD Three [facility] [address] [place] [address] 03/20/2024 11:30 AM DIRECTOR OF RELIGIOUS LIFE [facility] Family [facility] - [place] 100 [place] [phone] Abiodun Segura II, MD 100 [place], [place] [phone] documented as of this encounter Procedures Procedure [...] 12/13/2019 12/13/2019 0 12:34 AM DIRECTOR OF RELIGIOUS LIFE documented as of this encounter Care Teams Counter Cutter Relationship Specialty Start Date End Date Jarred Rod MD PCP - General FAMILY PRACTICE 07/21/15 09/30/20 Shira Shi PA-C 100 [place] [address] PCP - General PHYSICIAN JOB HONER 10/01/20 11/17/20 Jarred Rod MD [address] [place] [address] PCP - General FAMILY PRACTICE 11/18/20 12/05/20 Abiodun Segura II, MD [address] [place] [address] PCP - General FAMILY PRACTICE 12/06/20 01/16/21 Jarred Rod MD [address] [place] [address] PCP - General FAMILY PRACTICE 01/17/21 03/08/21 documented as of this encounter
--- OUTSIDE RECORDS SUMMARY | 2024-03-03 01:32 | XMS_ITS | Encounter Summary ---
Author Organization [facility] Address [address] [place] [address]. [place] [address] [place] [address] Care Team Providers Care Hospitality Services Manager Name Role Phone Jarred Rod MD Primary Care Provider Unav ailable Encounter Details Date Type Department Care Team (Late st Contact Info) Description 07/29/2017 9:12 PM CDT - 07/29/2017 10:00 PM CDT Emergency [facility] [address] [place] [id number] Discharge Disposition: Left Against Medical Advice Social [...] st Contact Info) Description 03/14/2024 11:45 AM DELIVERY SALES WORKER Office Visit [facility]-[address] [phone] Marvin Mckeon MD Three [facility] [address] [place] [address] 03/20/2024 11:30 AM DELIVERY SALES WORKER Office Visit [facility] Family Medicine - [place] 100 [place] [phone] Abiodun Segura II, MD 100 [place], [place] [phone] documented as of this encounter Visit Diagnoses Not on filedocumented in this encounter Care Teams Hospitality Services Manager Relationship Specialty Start Date End Date Jarred Rod MD PCP - General FAMILY PRACTICE 07/21/15 09/30/20 documented as of this encounter
--- OUTSIDE RECORDS SUMMARY | 2024-03-03 01:32 | XMS_ITS | Encounter Summary ---
Author Organization [facility] Address [address] [place] [address]. [place] [address] [place] [address] Care Team Providers Care Chemical Processing Supervisor Name Role Phone Jarred Fernández MD Primary Care Provider Unav ailable Reason for Referral * (Urgent) - Closed Specialty Diagnoses / Procedures Referred By Contxavier t Referred To Contact Procedures MRI FOOT LT WO CON Sabrina Soria MD Referral ID Status Reason Start Date Expiration Date Visits Re quested Visits Authorized [id number] Closed 02/07/2017 03/10/2018 1 1 [facility] Reason for Visit * Reason Comments Wound DIABETIC WITH NEW WO UNDS ON LEFT FOOT, HX OF AMPUTATIONS, ODOR, DRAINAGE ON SOLE OF FOOT * Auth/Cert Specialty Diagnoses / Procedures Referred By Contac t Referred To Contact Diagnoses Foot osteomyelitis, left ([facility]/HCC HHS/HCC) Osteomyelitis Procedures INPT Referral ID Status Reason Start Date Expiration Date Visits Re quested Visits Authorized [id number] 1 1 Encounter Details Date Type Department Care Team (Latest Contact Info) Description 02/04/2017 10:57 AM [facility] - 02/08/2017 2:30 PM [facility] Hospital Encounter [facility] Med/Surg 3rd [place] [address] Jurgen Posadas, DNP [address] [facility] [address] [place] [address] Eduardo New MD [address] [facility] , [address] [place] [address] Sabrina Soria MD Wound (DIABETIC WITH NEW [...] Comments Blood Pressure 116/58 02/08/2017 5:00 AM [facility] Pulse 75 02/08/2017 5:00 AM [facility] Temperature 36.8 ??C (98.2 ??F) 02/08/2017 5:00 AM CS T Respiratory Rate 20 02/08/2017 5:00 AM [facility] Oxygen Saturation 100% 02/08/2017 5:00 AM [facility] Inhaled Oxygen Concentration - - Weight 90.5 kg (199 lb 8.3 oz) 02/04/2017 3:18 P M [facility] Height 167.6 cm (5' 6 ) 02/04/2017 3:18 PM [facility] Body Mass Index 32.2 02/04/2017 3:18 PM [facility] documented in this encounter Discharge Summaries * [...] more than 35 minutes of my time. #[id number] /TR [facility] documented in this encounter Discharge Instructions * Discharge Instructions* Sabrina Soria MD - 02/08/2017 1:32 PM [facility] Physician instructions: Take antibiotics as prescribed, follow [...] up in 1 week. Daily dressing changes. [facility] documented in this encounter Medications at Time [...] PT IF A DR WITH [facility] [place] WRITES THE ORDER DR GARCIA HAS PRIVILEGES AT [place] AND HAS WRITTEN AN ORDER FOR WOUND CLINIC I HAVE FAXED THE ORDER AND A FACE SHEET TO DAMIÁN AT [facility] FAX: [phone] SHE STATED SHE WILL CONTACT KIM TO AUTH THE WOUND CLINIC AND WILL CALL THE PT TO SET UP AN APPT I WILL CALL THE PT EARLY NEXT WEEK TO MAKE SURE THIS HAS BEEN DONE [facility] * Wale Garcia MD - 02/08/2017 2:00 [...] pressures are stable. ? WALE GARCIA MD [facility] * Anish Oseguera PharmD - 02/08/2017 12:26 [...] This is a 46 YOF presenting to [facility] with left foot plantar surface drainage and [...] continue to monitor as consulted, thank you. [facility] * Wale Garcia MD - 02/07/2017 7:38 PM CST Patient [...] glycemiccontrol. 3. Hypertension blood pressures are stable. [facility] * Fatou Jerez NP - 02/07/2017 4:20 [...] diet she states. She sees Dr Langston surgery tech monthlyhe trimmed a callus on her left [...] Sabrina Soria MD at 02/07/2017 8:14 PM [facility] Associated attestation - Sabrina Soria MD - 02/07/2017 8:14 PM [facility] I, SABRINA SORIA MD, performed an examination [...] This is a 46 YOF presenting to [facility] with left foot plantar surface drainage and [...] continue to monitor as consulted, thank you. [facility] * Sabrina Soria MD - 02/06/2017 6:09 [...] No results for input(s): PH, PCO2, PO2, [id number], BICARBWB, BASEDEFICIT, BASEEXCESS in the [id number] hours. No results found for this or [...] case SABRINA SORIA MD 02/06/2017 6:09 PM [facility] * Abiodun Zuniga, RudiD, [facility] - 02/06/2017 2:08 PM CST Vancomycin Pharmacy to Dose Day #3 Ordering Provider: Yoan Indication: Osteomyelitis Goal Trough: 15-20 mcg/mL HT/WT: 5'6 , 87.1 kg Dose/Schedule: 87.1kg * 15 mg/kg = ~1250 mg Q 12 H WBC: 7.1 SCR: 0.90 CRCL: 73.9ml/min TMAX: 98.4 A/P: Vancomycin/clindamycin day 3 for osteo. This 46 YOF presenting to [facility] with left foot plantar surface drainage and discharge consistent with osteomyelitis of second metatarsal head per hospitalist note. ID and podiatry consulted. Cultures remain negative at this time. A vanco trough resulted last night at 18.3, level is therapeutic. Will continue vanco at 1.25g/12h unchanged. The next trough is set to be drawn before the 1400 dose02/08 to check for accumulation. [facility] * Sabrina Soria MD - 02/05/2017 7:52 [...] No results for input(s): PH, PCO2, PO2, [id number], BICARBWB, BASEDEFICIT, BASEEXCESS in the [id number] hours. No results found for this or [...] case SABRINA SORIA MD 02/05/2017 7:52 PM [facility] * Vannessa Crockett, [facility] - 02/05/2017 1:05 PM CST [...] ANTIBIOTICS: Clindamycin A/P: 46 YOF presenting to [facility] with left foot plantar surface drainage and [...] follow up with levels overnight. Thank you. [facility] * Adenike Dawson RN - 02/05/2017 8:20 AM CST 02/05 0820 AL NO DC NEEDS PER RN DC ASSESSMENT RESIDES AT HOME WITH SPOUSE WILL REASSESS DC NEEDS UPON REQUEST [facility] * Pietro Blum PharmD - 02/04/2017 3:03 [...] to follow. Thank you for the consult. [facility] documented in this encounter H&P Notes * [...] second metatarsalbones. Patient went to see her surgery tech 3 weeks ago who scraped the callus [...] Start Date End Date Taking? Authorizing Provider [facility] MIX 75/25 (75-25) 100 UNIT/ML Suspension Inject [...] head. We will consult infectious disease and surgery tech. We will start her on IV antibiotics [...] in the hospital. EDUARDO NEW MD 02/04/2017 [facility] documented in this encounter Consult Notes * [...] in 2 weeks in the office. HUBERT HERNANDEZ MD Consulted by Sabrina Soria MD [facility] * Silvino Gonzales RD - 02/07/2017 3:20 [...] given my diet instruction) at home. Protein -25 gm (1.0-1.2 gm/kg adjusted body wt). The high protein foods were reviewed with her and the intake of same encouraged. D: Pes of increased nutrient needs related to wound healing as evidenced by wound as reported. I:[place]o bid for wound healing and improvement in visceral protein status. M/E: At f/u 02/09/17.goals of accept one of the supplements sent; 2) 70% average intake. [facility] * Wale Garcia MD - 02/07/2017 12:00 AM CST REQUESTING PHYSICIAN: Dr. Vera REASON FOR CONSULTATION: Diabetic foot ulcer. HISTORY OF PRESENT ILLNESS: This is a 46-year-old female with significant past medical history for type 2 diabetes, hypertension, hyperlipidemia, history of Charcot right foot. The patient presents with left foot plantar ulcer going on for several weeks. She was seen by her surgery tech 3 weeks ago who scraped a callus [...] White count of 9, hemoglobin of 11, [id number], platelet of 281, segmental of 62%. MRI [...] diabetes. 4. Hypertension. Blood pressures are stable. #[id number] /[id number] [facility] documented in this encounter ED Notes * Alyse Lott RN - 02/04/2017 2:32 PM CST SBAR tubed to floor. [facility] * Mary Beth Norman RN - 02/04/2017 2:25 PM CST Atilio rojas [facility] * Alyse Lott RN - 02/04/2017 12:57 [...] The original images are available in the Technical Maintenance Specialist. [facility] * Jurgen Posadas DNP - 02/04/2017 11:31 [...] FOOT LT 3V Final Result by User, [id number] (02/04 1206) Examination: Left foot 3 views [...] Disposition: Admit ROOPA SOLOMON DNP 02/07/17 0940 [facility] documented in this encounter Plan of Treatment Upcoming Encounters Date Type Department Care Team (Late st Contact Info) Description 03/14/2024 11:45 AM [facility] Office Visit [facility]-[address] [phone] Marvin Mckeon MD [address] [facility] [address] [place] [address] 03/20/2024 11:30 AM [facility] Office Visit [facility] - [place] [address] [place] [phone] Abiodun Segura II, MD [address] [place], [place] [phone] Pending Results Name Type Priority Associated Diagnoses Date /Time POCT glucose Point of Care Testing - Docked Device Routine 02/08/2017 6:[address] documented as of this encounter Procedures Procedure Name Priority Date/Time Associated Diagnosis Comments POCT GLUCOSE - CORREA DOCKED DEVICE Routine 02/08/2017 11:44 AM [facility] POCT GLUCOSE - CORREA DOCKED DEVICE Routine 02/08/2017 6:44 AM [facility] COMPREHENSIVE METABOLIC PANEL Routine 02/08/2017 4:50 AM [facility] CBC W/DIFF AUTOMATED Routine 02/08/2017 4:50 AM [facility] MAGNESIUM Routine 02/08/2017 4:50 AM [facility] POCT GLUCOSE - CORREA DOCKED DEVICE Routine 02/07/2017 9:26 PM [facility] MRSA SCREENING Routine 02/07/2017 6:30 PM [facility] POCT GLUCOSE - CORREA DOCKED DEVICE Routine 02/07/2017 4:47 PM [facility] POCT GLUCOSE - CORREA DOCKED DEVICE Routine 02/07/2017 12:32 PM [facility] MRI FOOT LT WO CON Today 02/07/2017 11 :05 AM [facility] POCT GLUCOSE - CORREA DOCKED DEVICE Routine 02/07/2017 6:33 AM [facility] BASIC METABOLIC PANEL Routine 02/07/2017 4:34 AM [facility] CBC W/DIFF AUTOMATED Routine 02/07/2017 4:34 AM [facility] MAGNESIUM Routine 02/07/2017 4:34 AM [facility] POCT GLUCOSE - CORREA DOCKED DEVICE Routine 02/06/2017 11:10 PM [facility] POCT GLUCOSE - CORREA DOCKED DEVICE Routine 02/06/2017 6:17 PM [facility] POCT GLUCOSE - CORREA DOCKED DEVICE Routine 02/06/2017 12:26 PM [facility] POCT GLUCOSE - CORREA DOCKED DEVICE Routine 02/06/2017 5:58 AM [facility] VANCOMYCIN TROUGH TIMED 02/06/2017 1:1 2 AM [facility] BASIC METABOLIC PANEL Routine 02/06/2017 1:12 AM [facility] CBC W/DIFF AUTOMATED Routine 02/06/2017 1:12 AM [facility] MAGNESIUM Routine 02/06/2017 1:12 AM [facility] POCT GLUCOSE - CORREA DOCKED DEVICE Routine 02/05/2017 8:31 PM [facility] RO[facility] POCT GLUCOSE - CORREA DOCKED DEVICE Routine 02/05/2017 4:47 PM [facility] RO[facility] POCT GLUCOSE - CORREA DOCKED DEVICE Routine 02/05/2017 11:29 AM [facility] POCT GLUCOSE - CORREA DOCKED DEVICE Routine 02/05/2017 6:52 AM [facility] HEMOGLOBIN, GLYCOSYLATED Routine 02/05/2017 4:47 AM [facility] COMPREHENSIVE METABOLIC PANEL Routine 02/05/2017 4:47 AM [facility] CBC W/DIFF AUTOMATED Routine 02/05/2017 4:47 AM [facility] MAGNESIUM Routine 02/05/2017 4:47 AM [facility] SED RATE, ERYTHROCYTE (ESR) Routine 02/04/2017 11:10 PM [facility] C-REACTIVE PROTEIN Routine 02/04/2017 11 :10 PM [facility] POCT GLUCOSE - CORREA DOCKED DEVICE Routine 02/04/2017 9:10 PM [facility] ECG 12-LEAD STAT 02/04/2017 8:48 PM [facility] POCT GLUCOSE - CORREA DOCKED DEVICE Routine 02/04/2017 5:26 PM [facility] LACTIC ACID TIMED 02/04/2017 3:24 PM [facility] LACTIC ACID TIMED 02/04/2017 1:12 PM [facility] XR FOOT LT 3V STAT 02/04/2017 11:52 AM [facility] COMPREHENSIVE METABOLIC PANEL STAT 02/04/2017 11:34 AM [facility] LACTIC ACID TIMED 02/04/2017 11:34 AM [facility] CULTURE, BACTERIA, BLOOD STAT 02/04/2017 11:34 AM [facility] CULTURE, BACTERIA, BLOOD STAT 02/04/2017 11:34 AM [facility] CBC W/DIFF AUTOMATED STAT 02/04/2017 11:34 AM [facility] documented in this encounter Results * (ABNORMAL) POCT glucose (02/08/2017 11:44 AM [facility]PECTION ROOM) [facility] GLUCOSE POC 289(H) 70 - 99 mg/dL 02/08/2017 11:47 AM [facility]PECTION ROOM [facility] ORDERS INTERFACE 02/08/2017 11:4 4 AM [facility] ROOM us Eduardo New MD POCT ORDERABLES - DEVICE Final R esult [facility] ORDERS INTERFACE US * (ABNORMAL) CBC W/DIFF AUTOMATED (02/08/2017 4:50 AM [facility] RO[facility]) WBC 10.0 4.8 - 10.8 x10'3/uL 02/08/2017 5:33 AM [facility] RBC 3.52(L) 4.20 - 5.40 x10'6/uL 02/08/2017 5:33 AM [facility] HGB 10.4(L) 12.0 - 16.0 G/DL 02/08/2017 5:33 AM [facility] HCT 31.6(L) 38.0 - 48.0 % 02/08/2017 5:33 AM [facility] MCV 89.8 81.0 - 99.0 FL 02/08/2017 5:33 AM [facility] MCH 29.5 27.0 - 31.0 PG 02/08/2017 5:33 AM [facility] MCHC 32.9 32.0 - 36.0 G/DL 02/08/2017 5:33 AM [facility] RDW 12.9 11.5 - 14.5 % 02/08/2017 5:33 AM [facility] PLT 262 130 - 400 x10'3/uL 02/08/2017 5:33 AM [facility] MPV 11.2 9.3 - 12.2 FL 02/08/2017 5:33 AM [facility] NEUTROPHILS % 65.7(H) 43.0 - 65.0 % 02/08/2017 5:33 AM [facility] LYMPHOCYTES % 25.8 20.0 - 46.0 % 02/08/2017 5:33 AM [facility]OM [facility] MONOCYTES % 6.4 5.0 - 12.0 % 02/08/2017 5:33 AM [facility] ROOM [facility] EOSINOPHILS 1.0 1.0 - 3.0 % 02/08/2017 5:33 AM [facility] ROOM [facility] BASOPHILS 0.7 0.0 - 1.0 % 02/08/2017 5:33 AM [facility] IMMATURE GRANS % 0.4 0.0 - 1.0 % 02/08/2017 5:33 AM [facility] 02/08/2017 4:50 AM [facility] us Sabrina Soria MD LABORATORY Final Result [facility] [address] [place] [address], [place] [phone] * (ABNORMAL) COMPREHENSIVE METABOLIC PANEL (02/08/2017 4:50 AM [facility]) GLUCOSE 141(H) 70 - 99 MG/DL 02/08/2017 5:48 AM [facility] BUN 18 7 - 18 MG/DL 02/08/2017 5:48 AM [facility] CREATININE S/P/B 1.09(H) 0.55 - 1.02 MG/DL 02/08/2017 5:48 AM [facility] SODIUM S/P/B 140 136 - 145 MMOL/L 02/08/2017 5:48 AM [facility] POTASSIUM S/P/B 4.1 3.5 - 5.1 MMOL/L 02/08/2017 5:48 AM [facility] CHLORIDE S/P/B 106 100 - 108 MMOL/L 02/08/2017 5:48 AM [facility] CO2 27.3 21 - 32 MMOL/L 02/08/2017 5:48 AM [facility] CALCIUM S/P/B 8.7 8.5 - 10.1 MG/DL 02/08/2017 5:48 AM [facility] BILIRUBIN TOTAL S/P/B 0.3 0.2 - 1.2 MG/DL 02/08/2017 5:48 AM [facility] TOTAL PROTEIN S/P/B 7.5 6.4 - 8.2 G/DL 02/08/2017 5:48 AM [facility] ALBUMIN S/P/B 2.6(L) 3.4 - 5.0 G/DL 02/08/2017 5:48 AM [facility] AST 47(H) 15 - 37 U/L 02/08/2017 5:48 AM [facility] ALT 80(H) 14 - 55 U/L 02/08/2017 5:48 AM [facility] ALKALINE PHOSPHATASE S/P/B 174(H) 50 - 136 U/L 02/08/2017 5:48 AM [facility] ANION GAP 10.8 8 - 20 MMOL/L 02/08/2017 5:48 AM [facility] BUN CREATININE RATIO 16.5 6 - 26 02/08/2017 5:48 AM [facility] A/G RATIO 0.5(L) 1.0 - 2.0 RATIO 02/08/2017 5:48 AM [facility] EGFR NON-AFR. AMER. >60 >60 ML/MIN/1.7 3 M2 02/08/2017 5:48 AM [facility] EGFR AFR. AMER. >60 >60 ML/MIN/1.7 3 M2 02/08/2017 5:48 AM [facility]OM [facility] Comment: NOTE: eGFR is not calculated for patients <18 years of age. This is an estimated GFR (CKD EPI) and should not be used for calculating drug doses. 02/08/2017 4:50 AM [facility] us Wale Garcia MD LABORATORY Final Result Performing Organization Address [facility] [[email or web address]] Co de Phone Number [facility] [address] [place] [address], * MAGNESIUM (02/08/2017 4:50 AM [facility]PECTION ROOM) Pathologist [facility] MAGNESIUM 1.9 1.8 - 2.4 MG/DL 02/08/2017 5:48 AM [facility] ROOM [facility] 02/08/2017 4:50 AM [facility] RO[facility] us Fatou Jerez NP LABORATORY Final Result Performing Organization Address [facility] [[email or web address]] Co de Phone Number [facility] [address] [place] [address], [place] [phone] * (ABNORMAL) POCT glucose (02/07/2017 9:26 PM [facility] RO[facility]) [facility] GLUCOSE POC 193(H) 70 - 99 mg/dL 02/08/2017 4:57 AM [facility] ROOM [facility] ORDERS INTERFACE 02/07/2017 9:26 PM [facility] us Eduardo New MD POCT ORDERABLES - DEVICE Final R esult Performing Organization Address [facility] [[email or web address]] Co de Phone Number [facility] ORDERS INTERFACE US * MRSA SCREENING (02/07/2017 6:30 PM [facility] RO[facility]) SPEC DESCRIPTION NASAL 02/07/2017 6:38 PM [facility] SPECIAL REQUESTS NO SPECIAL REQUEST 02/07/2017 6:38 PM [facility] CULTURE RESULT NO METHICILLIN RESISTANT STAPH AUREUS ISOLATED 02/08/2017 12:54 PM [facility] ROOM [facility] SPECIMEN FROM INTERNAL NOSE / Unknown 02/07/2017 6:30 PM [facility] 02/07/2017 6:38 PM [facility] us Fatou Jerez NP MICROBIOLOGY - GENERAL ORDERAB LES Final Result Performing Organization Address [facility] [[email or web address]] Co de Phone Number [facility] [address] [place] [address], [place] [phone] * (ABNORMAL) POCT glucose (02/07/2017 4:47 PM [facility] RO[facility]) GLUCOSE POC 263(H) 70 - 99 mg/dL 02/07/2017 4:52 PM [facility]PECTION ROOM [facility] ORDERS INTERFACE 02/07/2017 4:47 PM [facility]PE[facility] ROOM us Eduardo New MD POCT ORDERABLES - DEVICE Final R esult Performing Organization Address [facility] [[email or web address]] Co de Phone Number [facility] ORDERS INTERFACE US * (ABNORMAL) POCT glucose (02/07/2017 12:32 PM [facility]PECTION RO[facility]) GLUCOSE POC 195(H) 70 - 99 mg/dL 02/07/2017 12:35 PM [facility]PECTION ROOM [facility] ORDERS INTERFACE 02/07/2017 12:3 2 PM [facility]PECTION ROOM us Eduardo New MD POCT ORDERABLES - DEVICE Final R esult Performing Organization Address [facility] [[email or web address]] Co de Phone Number [facility] ORDERS INTERFACE US * MRI FOOT LT WO CON (02/07/2017 11:05 AM [facility] RO[facility]) Anatomical Region Laterality Modality Foot Magnetic Resonan ce 02/07/2017 11:3 1 AM [facility] Impressions 02/07/2017 11:50 AM [facility] ROOM =====IMPRESSION:===== No convincing evidence of osteomyelitis. Neuropathic changes, second digit partial amputation, intrinsic muscular atrophy of the foot. Narrative 02/07/2017 11:50 AM [facility] EXAMINATION: MRI LEFT FOOT WITHOUT CONTRAST EXAM [...] * (ABNORMAL) POCT glucose (02/07/2017 6:33 AM [facility]PECTION ROOM) [facility] GLUCOSE POC 218(H) 70 - 99 mg/dL 02/07/2017 6:34 AM [facility]PECTION ROOM [facility] ORDERS INTERFACE 02/07/2017 6:33 AM [facility] ROOM Eduardo New MD POCT ORDERABLES - DEVICE Final R esult Performing Organization Address City/[facility]/ZIP Co de Phone Number [facility] ORDERS INTERFACE US * (ABNORMAL) MAGNESIUM (02/07/2017 4:34 AM [facility]PECTION ROOM) [facility] MAGNESIUM 1.7(L) 1.8 - 2.4 MG/DL 02/07/2017 6:02 AM [facility] 02/07/2017 4:34 AM [facility]PE[facility] ROOM us Sabrina Soria MD LABORATORY Final Result Performing Organization Address City/[facility] de Phone Number [facility] [address] [place] [address], [place] [phone] * (ABNORMAL) CBC W/DIFF AUTOMATED (02/07/2017 4:34 AM [facility]PE[facility] ROOM) [facility] WBC 9.0 4.8 - 10.8 x10'3/uL 02/07/2017 5:41 AM [facility] RBC 3.71(L) 4.20 - 5.40 x10'6/uL 02/07/2017 5:41 AM [facility] HGB 11.1(L) 12.0 - 16.0 G/DL 02/07/2017 5:41 AM [facility] HCT 33.3(L) 38.0 - 48.0 % 02/07/2017 5:41 AM [facility] MCV 89.8 81.0 - 99.0 FL 02/07/2017 5:41 AM [facility] MCH 29.9 27.0 - 31.0 PG 02/07/2017 5:41 AM [facility] MCHC 33.3 32.0 - 36.0 G/DL 02/07/2017 5:41 AM [facility] RDW 12.6 11.5 - 14.5 % 02/07/2017 5:41 AM [facility] PLT 281 130 - 400 x10'3/uL 02/07/2017 5:41 AM [facility] MPV 11.3 9.3 - 12.2 FL 02/07/2017 5:41 AM [facility] NEUTROPHILS % 62.1 43.0 - 65.0 % 02/07/2017 5:41 AM [facility] LYMPHOCYTES % 28.3 20.0 - 46.0 % 02/07/2017 5:41 AM [facility] MONOCYTES % 7.3 5.0 - 12.0 % 02/07/2017 5:41 AM [facility] EOSINOPHILS 1.2 1.0 - 3.0 % 02/07/2017 5:41 AM [facility] BASOPHILS 0.7 0.0 - 1.0 % 02/07/2017 5:41 AM [facility] IMMATURE GRANS % 0.4 0.0 - 1.0 % 02/07/2017 5:41 AM [facility] 02/07/2017 4:34 AM [facility] us Sabrina Soria MD LABORATORY Final Result [facility] [address] [place] [address], [place] [phone] * (ABNORMAL) BASIC METABOLIC PANEL (02/07/2017 4:34 AM [facility]) [facility] GLUCOSE 230(H) 70 - 99 MG/DL 02/07/2017 6:02 AM [facility] BUN 19(H) 7 - 18 MG/DL 02/07/2017 6:02 AM [facility] CREATININE S/P/B 1.03(H) 0.55 - 1.02 MG/DL 02/07/2017 6:02 AM [facility] SODIUM S/P/B 136 136 - 145 MMOL/L 02/07/2017 6:02 AM [facility] POTASSIUM S/P/B 4.2 3.5 - 5.1 MMOL/L 02/07/2017 6:02 AM [facility] CHLORIDE S/P/B 104 100 - 108 MMOL/L 02/07/2017 6:02 AM [facility] CO2 24.3 21 - 32 MMOL/L 02/07/2017 6:02 AM [facility] CALCIUM S/P/B 8.7 8.5 - 10.1 MG/DL 02/07/2017 6:02 AM [facility] ANION GAP 11.9 8 - 20 MMOL/L 02/07/2017 6:02 AM [facility] BUN CREATININE RATIO 18.4 6 - 26 02/07/2017 6:02 AM [facility] EGFR NON-AFR. AMER. >60 >60 ML/MIN/1.7 3 M2 02/07/2017 6:02 AM [facility] EGFR AFR. AMER. >60 >60 ML/MIN/1.7 3 M2 02/07/2017 6:02 AM [facility] Comment: NOTE: eGFR is not calculated for patients <18 years of age. This is an estimated GFR (CKD EPI) and should not be used for calculating drug doses. 02/07/2017 4:34 AM [facility] Sabrina Soria MD LABORATORY Final Result Performing Organization Address [facility]/ZIP Co de Phone Number [facility] [address] [place] [address], * (ABNORMAL) POCT glucose (02/06/2017 11:10 PM [facility]) GLUCOSE POC 317(H) 70 - 99 mg/dL 02/06/2017 11:20 PM [facility] ORDERS INTERFACE 02/06/2017 11:1 0 PM [facility] Eduardo New MD POCT ORDERABLES - DEVICE Final R esult Performing Organization Address [facility] [[email or web address]] Co de Phone Number [facility] ORDERS INTERFACE US * (ABNORMAL) POCT glucose (02/06/2017 6:17 PM [facility]) GLUCOSE POC 287(H) 70 - 99 mg/dL 02/06/2017 7:55 PM [facility] ORDERS INTERFACE 02/06/2017 6:17 PM [facility] Eduardo New MD POCT ORDERABLES - DEVICE Final R esult Performing Organization Address [facility] [[email or web address]] Co de Phone Number [facility] ORDERS INTERFACE US * (ABNORMAL) POCT glucose (02/06/2017 12:26 PM [facility]) GLUCOSE POC 210(H) 70 - 99 mg/dL 02/06/2017 12:38 PM [facility] ORDERS INTERFACE 02/06/2017 12:2 6 PM [facility] us Eduardo New MD POCT ORDERABLES - DEVICE Final R esult Performing Organization Address [facility]/ZIP Co de Phone Number [facility] ORDERS INTERFACE US * (ABNORMAL) POCT glucose (02/06/2017 5:58 AM [facility]) GLUCOSE POC 207(H) 70 - 99 mg/dL 02/06/2017 6:01 AM [facility] ROOM [facility] ORDERS INTERFACE 02/06/2017 5:58 AM [facility] Eduardo New MD POCT ORDERABLES - DEVICE Final R esult Performing Organization Address [facility]/ZIP Co de Phone Number [facility] ORDERS INTERFACE US * (ABNORMAL) MAGNESIUM (02/06/2017 1:12 AM [facility] RO[facility]) Pathologist [facility] MAGNESIUM 1.7(L) 1.8 - 2.4 MG/DL 02/06/2017 1:39 AM [facility]OM [facility] 02/06/2017 1:12 AM [facility] us Sabrina Soria MD LABORATORY Final Result Performing Organization Address [facility] de Phone Number [facility] [address] [address], [place] [phone] * (ABNORMAL) CBC W/DIFF AUTOMATED (02/06/2017 1:12 AM [facility]) WBC 7.1 4.8 - 10.8 x10'3/uL 02/06/2017 1:24 AM [facility] ROOM [facility] RBC 3.56(L) 4.20 - 5.40 x10'6/uL 02/06/2017 1:24 AM [facility] HGB 10.8(L) 12.0 - 16.0 G/DL 02/06/2017 1:24 AM [facility] HCT 31.9(L) 38.0 - 48.0 % 02/06/2017 1:24 AM [facility] MCV 89.6 81.0 - 99.0 FL 02/06/2017 1:24 AM [facility] MCH 30.3 27.0 - 31.0 PG 02/06/2017 1:24 AM [facility] MCHC 33.9 32.0 - 36.0 G/DL 02/06/2017 1:24 AM [facility] RDW 12.4 11.5 - 14.5 % 02/06/2017 1:24 AM [facility] PLT 240 130 - 400 x10'3/uL 02/06/2017 1:24 AM [facility] MPV 10.8 9.3 - 12.2 FL 02/06/2017 1:24 AM [facility] NEUTROPHILS % 51.8 43.0 - 65.0 % 02/06/2017 1:24 AM [facility] LYMPHOCYTES % 38.4 20.0 - 46.0 % 02/06/2017 1:24 AM [facility] MONOCYTES % 7.4 5.0 - 12.0 % 02/06/2017 1:24 AM [facility] EOSINOPHILS 1.3 1.0 - 3.0 % 02/06/2017 1:24 AM [facility] BASOPHILS 0.7 0.0 - 1.0 % 02/06/2017 1:24 AM [facility] IMMATURE GRANS % 0.4 0.0 - 1.0 % 02/06/2017 1:24 AM [facility] 02/06/2017 1:12 AM [facility] us Sabrina Soria MD LABORATORY Final Result [facility] [address] [place] [address], [place] [phone] * (ABNORMAL) BASIC METABOLIC PANEL (02/06/2017 1:12 AM [facility]) [facility] GLUCOSE 226(H) 70 - 99 MG/DL 02/06/2017 1:39 AM [facility] BUN 16 7 - 18 MG/DL 02/06/2017 1:39 AM [facility] CREATININE S/P/B 0.90 0.55 - 1.02 MG/DL 02/06/2017 1:39 AM [facility] SODIUM S/P/B 139 136 - 145 MMOL/L 02/06/2017 1:39 AM [facility] POTASSIUM S/P/B 4.3 3.5 - 5.1 MMOL/L 02/06/2017 1:39 AM [facility] CHLORIDE S/P/B 104 100 - 108 MMOL/L 02/06/2017 1:39 AM [facility] CO2 27.6 21 - 32 MMOL/L 02/06/2017 1:39 AM [facility] CALCIUM S/P/B 8.9 8.5 - 10.1 MG/DL 02/06/2017 1:39 AM [facility] ANION GAP 11.7 8 - 20 MMOL/L 02/06/2017 1:39 AM [facility] BUN CREATININE RATIO 17.7 6 - 26 02/06/2017 1:39 AM [facility] EGFR NON-AFR. AMER. >60 >60 ML/MIN/1.7 3 M2 02/06/2017 1:39 AM [facility] EGFR AFR. AMER. >60 >60 ML/MIN/1.7 3 M2 02/06/2017 1:39 AM [facility] Comment: NOTE: eGFR is not calculated for patients <18 years of age. This is an estimated GFR (CKD EPI) and should not be used for calculating drug doses. 02/06/2017 1:12 AM [facility] Sabrina Soria MD LABORATORY Final Result Performing Organization Address [facility] de Phone Number [facility] [address] [place] [address], * VANCOMYCIN TROUGH (02/06/2017 1:12 AM [facility] RO[facility]) Pathologist [facility] VANCOMYCIN TROUGH 18.3 MCG/ML 02/06/2017 1:40 AM [facility] Comment: ? THERAPEUTIC: 10.0-20.0 ? TOXIC: >25.0 VANCOMYCIN UNK 02/06/2017 2:13 AM [facility] 02/06/2017 1:12 AM [facility] Eduardo New MD LABORATORY Final Result Performing Organization Address [facility] de Phone Number [facility] [address] [place] [phone], * (ABNORMAL) POCT glucose (02/05/2017 8:31 PM [facility]) GLUCOSE POC 270(H) 70 - 99 mg/dL 02/05/2017 8:43 PM [facility] ROOM [facility] ORDERS INTERFACE 02/05/2017 8:31 PM [facility] RO[facility] us Eduardo New MD POCT ORDERABLES - DEVICE Final R esult Performing Organization Address [facility] de Phone Number [facility] ORDERS INTERFACE US * (ABNORMAL) POCT glucose (02/05/2017 4:47 PM [facility] RO[facility]) GLUCOSE POC 296(H) 70 - 99 mg/dL 02/05/2017 5:13 PM [facility] ROOM [facility] ORDERS INTERFACE 02/05/2017 4:47 PM [facility] ROOM us Eduardo New MD POCT ORDERABLES - DEVICE Final R esult Performing Organization Address [facility] [[email or web address]] Co de Phone Number [facility] ORDERS INTERFACE US * (ABNORMAL) POCT glucose (02/05/2017 11:29 AM [facility]) GLUCOSE POC 234(H) 70 - 99 mg/dL 02/05/2017 11:32 AM [facility] ROOM [facility] ORDERS INTERFACE 02/05/2017 11:2 9 AM [facility] RO[facility] us Eduardo New MD POCT ORDERABLES - DEVICE Final R esult Performing Organization Address [facility] [[email or web address]] Co de Phone Number [facility] ORDERS INTERFACE US * (ABNORMAL) POCT glucose (02/05/2017 6:52 AM [facility]) GLUCOSE POC 163(H) 70 - 99 mg/dL 02/05/2017 6:56 AM [facility]PE[facility] ROOM [facility] ORDERS INTERFACE 02/05/2017 6:52 AM [facility] ROOM us Eduardo New MD POCT ORDERABLES - DEVICE Final R esult Performing Organization Address [facility] [[email or web address]] Co de Phone Number [facility] ORDERS INTERFACE US * (ABNORMAL) HEMOGLOBIN, GLYCOSYLATED (02/05/2017 4:47 AM [facility]) HGB A1C 9.5(H) 4.2 - 6.3 % 02/05/2017 9:20 PM [facility] ROOM [facility] Comment: ADA GUIDELINES 2010 5.7 TO 6.4% INCREASED RISK OF DIABETES > OR = 6.5% CONSISTENT WITH DIABETES ESTIMATED AVG GLUCOSE 226 mg/dL 02/05/2017 9:20 PM [facility] ROOM [facility] 02/05/2017 4:47 AM [facility] ROOM us Sabrina Soria MD LABORATORY Final Result Performing Organization Address City/[facility]/ZIP Co de Phone Number [facility] [address] [place] [address], * (ABNORMAL) MAGNESIUM (02/05/2017 4:47 AM [facility] RO[facility]) MAGNESIUM 1.7(L) 1.8 - 2.4 MG/DL 02/05/2017 5:44 AM [facility]PECTION ROOM [facility] 02/05/2017 4:47 AM [facility]PE[facility] ROOM us Eduardo New MD LABORATORY Final Result Performing Organization Address [facility] [[email or web address]] Co de Phone Number [facility] [address] [place] [address], * (ABNORMAL) COMPREHENSIVE METABOLIC PANEL (02/05/2017 4:47 AM [facility]) GLUCOSE 153(H) 70 - 99 MG/DL 02/05/2017 5:44 AM [facility] BUN 16 7 - 18 MG/DL 02/05/2017 5:44 AM [facility] CREATININE S/P/B 0.94 0.55 - 1.02 MG/DL 02/05/2017 5:44 AM [facility] SODIUM S/P/B 138 136 - 145 MMOL/L 02/05/2017 5:44 AM [facility] POTASSIUM S/P/B 4.0 3.5 - 5.1 MMOL/L 02/05/2017 5:44 AM [facility] CHLORIDE S/P/B 103 100 - 108 MMOL/L 02/05/2017 5:44 AM [facility] CO2 28.2 21 - 32 MMOL/L 02/05/2017 5:44 AM [facility] CALCIUM S/P/B 8.7 8.5 - 10.1 MG/DL 02/05/2017 5:44 AM [facility] BILIRUBIN TOTAL S/P/B 0.2 0.2 - 1.2 MG/DL 02/05/2017 5:44 AM [facility] TOTAL PROTEIN S/P/B 7.5 6.4 - 8.2 G/DL 02/05/2017 5:44 AM [facility] ALBUMIN S/P/B 2.6(L) 3.4 - 5.0 G/DL 02/05/2017 5:44 AM [facility] AST 82(H) 15 - 37 U/L 02/05/2017 5:44 AM [facility] ALT 62(H) 14 - 55 U/L 02/05/2017 5:44 AM [facility] ALKALINE PHOSPHATASE S/P/B 167(H) 50 - 136 U/L 02/05/2017 5:44 AM [facility] ANION GAP 10.8 8 - 20 MMOL/L 02/05/2017 5:44 AM [facility] BUN CREATININE RATIO 17.1 6 - 26 02/05/2017 5:44 AM [facility] A/G RATIO 0.5(L) 1.0 - 2.0 RATIO 02/05/2017 5:44 AM [facility] EGFR NON-AFR. AMER. >60 >60 ML/MIN/1.7 3 M2 02/05/2017 5:44 AM [facility] EGFR AFR. AMER. >60 >60 ML/MIN/1.7 3 M2 02/05/2017 5:44 AM [facility] Comment: NOTE: eGFR is not calculated for patients <18 years of age. This is an estimated GFR (CKD EPI) and should not be used for calculating drug doses. 02/05/2017 4:47 AM [facility] Eduardo New MD LABORATORY Final Result [facility] [address] [place] [address], * (ABNORMAL) CBC W/DIFF AUTOMATED (02/05/2017 4:47 AM [facility] RO[facility]) WBC 8.0 4.8 - 10.8 x10'3/uL 02/05/2017 5:24 AM [facility] RBC 3.55(L) 4.20 - 5.40 x10'6/uL 02/05/2017 5:24 AM [facility] HGB 10.7(L) 12.0 - 16.0 G/DL 02/05/2017 5:24 AM [facility] HCT 31.8(L) 38.0 - 48.0 % 02/05/2017 5:24 AM [facility] MCV 89.6 81.0 - 99.0 FL 02/05/2017 5:24 AM [facility] MCH 30.1 27.0 - 31.0 PG 02/05/2017 5:24 AM [facility] MCHC 33.6 32.0 - 36.0 G/DL 02/05/2017 5:24 AM [facility] RDW 12.3 11.5 - 14.5 % 02/05/2017 5:24 AM [facility] PLT 258 130 - 400 x10'3/uL 02/05/2017 5:24 AM [facility] MPV 11.2 9.3 - 12.2 FL 02/05/2017 5:24 AM [facility] NEUTROPHILS % 63.9 43.0 - 65.0 % 02/05/2017 5:24 AM [facility]PE[facility] ROOM [facility] LYMPHOCYTES % 27.7 20.0 - 46.0 % 02/05/2017 5:24 AM [facility]PECTION ROOM [facility] MONOCYTES % 5.9 5.0 - 12.0 % 02/05/2017 5:24 AM [facility]PECTION ROOM [facility] EOSINOPHILS 1.6 1.0 - 3.0 % 02/05/2017 5:24 AM [facility]PECTION ROOM [facility] BASOPHILS 0.5 0.0 - 1.0 % 02/05/2017 5:24 AM [facility]PECTION ROOM [facility] IMMATURE GRANS % 0.4 0.0 - 1.0 % 02/05/2017 5:24 AM [facility]PECTION ROOM [facility] 02/05/2017 4:47 AM [facility] RO[facility] us Eduardo New MD LABORATORY Final Result [facility] [address] [place] [address], [place] [phone] * (ABNORMAL) C-REACTIVE PROTEIN (02/04/2017 11:10 PM [facility]) C-REACTIVE PROTEIN 2.93(H) <0.29 mg/dL 02/04/2017 11:36 PM [facility]PECTION ROOM [facility] 02/04/2017 11:1 0 PM [facility]PE[facility] ROOM us Sabrina Soria MD LABORATORY Final Result [facility] [address] [place] [address], [place] [phone] * (ABNORMAL) SED RATE, ERYTHROCYTE (ESR) (02/04/2017 11:10 PM [facility]) ESR 88(H) 0 - 20 mm/hr 02/05/2017 12:26 AM [facility]PECTION ROOM [facility] 02/04/2017 11:1 0 PM [facility]PECTION ROOM us Sabrina Soria MD LABORATORY Final Result Performing Organization Address [facility] [[email or web address]] Co de Phone Number [facility] [address] [place] [address], * (ABNORMAL) POCT glucose (02/04/2017 9:10 PM [facility]PE[facility] RO[facility]) [facility] GLUCOSE POC 268(H) 70 - 99 mg/dL 02/04/2017 9:12 PM [facility]PECTION ROOM [facility] ORDERS INTERFACE 02/04/2017 9:10 PM [facility] RO[facility] us Eduardo New MD POCT ORDERABLES - DEVICE Final R esult Performing Organization Address [facility] de Phone Number [facility] ORDERS INTERFACE US * ECG 12-Lead (02/04/2017 8:48 PM [facility]) 02/04/2017 8:48 PM [facility] Narrative [facility] - 02/04/2017 8:48 PM [facility]PER[facility]PECTION ROOM ?[facility] [place] ? [address] [place] ? Test Date: ?2017-02-04 Pat Name: ? LENA YOUNGBLOOD ?Department: ?? 41 ? Room: ? A31 Gender: ? Female ? Tipple Repairer: ?? RB : ?1970 ? Requested By: JURGEN POSADAS Order Number: [id number] ?Reading MD: ?? Jermain Soriano ? Measurements Intervals ?[place] ? Rate: ? 75 ? P: ?42 [place]: ? 191 ?QRS: ?13 QRSD: ? 81 ? T: ?12 QT: ? 388 ? QTc: ?433 ? Interpretive Statements SINUS RHYTHM MODERATE VOLTAGE CRITERIA FOR LVH, CONSIDER NORMAL VARIANT NONSPECIFIC T-WAVE ABNORMALITY Compared to ECG 02/02/2016 13:10:02 No significant changes [facility] Procedure Note Jermain Soriano MD - 02/04/[address] Test Date: 2017-02-04 Pat Name: LENA YOUNGBLOOD Department: 41 Room: [facility] Gender: Female Tipple Repairer: MARILYN : 1970 Requested By: JURGEN POSADAS Order Number: [id number] Reading MD: Jermain Soriano Measurements Intervals [place] Rate: 75 P: 42 [place]: 191 QRS: 13 QRSD: 81 T: 12 QT: 388 QTc: 433 Interpretive Statements SINUS RHYTHM MODERATE VOLTAGE CRITERIA FOR LVH, CONSIDER NORMAL VARIANT NONSPECIFIC T-WAVE ABNORMALITY Compared to ECG 02/02/2016 13:10:02 No significant changes [facility] Jurgen Posadas DNP ECG ORDERABLES Final Result Performing Organization Address [facility] [[email or web address]] Co de Phone Number [facility] * (ABNORMAL) POCT glucose (02/04/2017 5:26 PM [facility]PE[facility] RO[facility]) [facility] GLUCOSE POC 224(H) 70 - 99 mg/dL 02/04/2017 5:33 PM [facility]PECTION ROOM [facility] ORDERS INTERFACE 02/04/2017 5:26 PM [facility] ROOM Eduardo New MD POCT ORDERABLES - DEVICE Final R esult Performing Organization Address [facility] [[email or web address]] Co de Phone Number [facility] ORDERS INTERFACE US * LACTIC ACID (02/04/2017 3:24 PM [facility]PE[facility] RO[facility]) LACTIC ACID VENOUS 0.6 0.4 - 2.0 MMOL/L 02/04/2017 3:48 PM [facility]PECTION ROOM [facility] 02/04/2017 3:24 PM [facility] ROOM Jurgen Posadas DNP LABORATORY Final Result Performing Organization Address City/[facility]/ZIP Co de Phone Number [facility] [address] [place] [phone], * LACTIC ACID (02/04/2017 1:12 PM [facility]PE[facility] RO[facility]) LACTIC ACID VENOUS 1.9 0.4 - 2.0 MMOL/L 02/04/2017 2:52 PM [facility]PECTION ROOM [facility] 02/04/2017 1:12 PM [facility]PECTION ROOM Jurgen Posadas [facility] LAB[facility]AT[facility] Final Result Performing Organization Address [facility] [[email or web address]] Co de Phone Number [facility] [address] [place] [address], * XR FOOT LT 3V (02/04/2017 11:52 AM [facility] RO[facility]) Anatomical Region Laterality Modality Foot Radiographic Shelli ging 02/04/2017 11:5 8 AM [facility] Impressions 02/04/2017 12:03 PM [facility] =====IMPRESSION:===== 1. 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 2. Focal cortical erosion and lucency at the head of the second metatarsal which can be seen with osteomyelitis. Confirmation with MRI can be obtained as clinically directed. Narrative 02/04/2017 12:03 PM [facility] Examination: Left foot 3 views Exam date/time: [...] * CULTURE, BACTERIA, BLOOD (02/04/2017 11:34 AM [facility]PE[facility] ROOM) SPEC DESCRIPTION BLOOD 02/04/2017 11:47 AM [facility]PE[facility] ROOM [facility] SPECIAL REQUESTS FOREARM RIGHT 02/04/2017 11:47 AM [facility] ROOM [facility] CULTURE RESULT NO GROWTH 5 DAYS 02/09/2017 10:42 AM [facility]PECTION ROOM [facility] BLOOD SPECIMEN OBTAINED FOR BLOOD CULTURE / Unknown 02/04/2017 11:34 AM [facility] 02/04/2017 11:46 AM [facility] ROOM Jurgen Posadas DNP MICROBIOLOGY - GENERAL ORDER ROLF Final Result [facility] [address] [place] [address], * CULTURE, BACTERIA, BLOOD (02/04/2017 11:34 AM [facility]PECTION ROOM) Pathologist [facility] SPEC DESCRIPTION BLOOD 02/05/20 12:18 PM [facility]OR INSPECTION ROOM [facility] SPECIAL REQUESTS RAC 02/05/20 12:18 PM [facility]PECTION ROOM [facility] CULTURE RESULT NO GROWTH 5 DAYS 02/09/2017 10:42 AM [facility]PECTION ROOM [facility] BLOOD SPECIMEN OBTAINED FOR BLOOD CULTURE / Unknown 02/04/2017 11:34 AM [facility] 02/04/2017 11:50 AM [facility]PE[facility] ROOM us Jurgen Posadas DNP MICROBIOLOGY - GENERAL ORDER ROLF Final Result Performing Organization Address City/[facility] [[email or web address]] Co de Phone Number [facility] [address] [place] [address], [place] [phone] * LACTIC ACID (02/04/2017 11:34 AM [facility]PE[facility] RO[facility]) Pathologist [facility] LACTIC ACID VENOUS 2.0 0.4 - 2.0 MMOL/L 02/04/2017 12:24 PM [facility]PE[facility] ROOM [facility] Comment: LD CALLED CRITICAL RESULTS AT [id number] TO AND READ BACK BY ASAD MESA AN ORDER FOR A REPEAT LACTIC ACID TEST IS REQUIRED WITHIN 6 HOURS OF DIAGNOSIS ON A PATIENT WITH SEVERE SEPSIS. IN A PATIENT WITHOUT SEPSIS, A LACTIC ACID VALUE UP TO 2.2 MMOL/L MAY BE NORMAL. 02/04/2017 11:3 4 AM [facility]PECTION ROOM us Jurgen Posadas DNP LABORATORY Final Result [facility] [address] [place] [address], * (ABNORMAL) Comprehensive metabolic panel (02/04/2017 11:34 AM [facility]) [facility] GLUCOSE 236(H) 70 - 99 MG/DL 02/04/2017 12:19 PM [facility] BUN 15 7 - 18 MG/DL 02/04/2017 12:19 PM [facility] CREATININE S/P/B 1.22(H) 0.55 - 1.02 MG/DL 02/04/2017 12:19 PM [facility] SODIUM S/P/B 134(L) 136 - 145 MMOL/L 02/04/2017 12:19 PM [facility] POTASSIUM S/P/B 4.4 3.5 - 5.1 MMOL/L 02/04/2017 12:19 PM [facility] CHLORIDE S/P/B 99(L) 100 - 108 MMOL/L 02/04/2017 12:19 PM [facility] CO2 27.7 21 - 32 MMOL/L 02/04/2017 12:19 PM [facility] CALCIUM S/P/B 9.6 8.5 - 10.1 MG/DL 02/04/2017 12:19 PM [facility] BILIRUBIN TOTAL S/P/B 0.3 0.2 - 1.2 MG/DL 02/04/2017 12:19 PM [facility] TOTAL PROTEIN S/P/B 9.8(H) 6.4 - 8.2 G/DL 02/04/2017 12:19 PM [facility] ALBUMIN S/P/B 3.6 3.4 - 5.0 G/DL 02/04/2017 12:19 PM [facility] AST 22 15 - 37 U/L 02/04/2017 12:19 PM [facility] ALT 28 14 - 55 U/L 02/04/2017 12:19 PM [facility] ALKALINE PHOSPHATASE S/P/B 166(H) 50 - 136 U/L 02/04/2017 12:19 PM [facility] ANION GAP 11.7 8 - 20 MMOL/L 02/04/2017 12:19 PM [facility] BUN CREATININE RATIO 12.3 6 - 26 02/04/2017 12:19 PM [facility] A/G RATIO 0.6(L) 1.0 - 2.0 RATIO 02/04/2017 12:19 PM [facility] EGFR NON-AFR. AMER. 53(L) >60 ML/MIN/1.7 3 M2 02/04/2017 12:19 PM [facility] EGFR AFR. AMER. >60 >60 ML/MIN/1.7 3 M2 02/04/2017 12:19 PM [facility] Comment: NOTE: eGFR is not calculated for patients <18 years of age. This is an estimated GFR (CKD EPI) and should not be used for calculating drug doses. 02/04/2017 11:3 4 AM [facility]PE[facility] ROOM Jurgen Posadas DNP LABORATORY Final Result [facility] [address] [place] [address], * (ABNORMAL) CBC W/DIFF AUTOMATED (02/04/2017 11:34 AM [facility] RO[facility]) WBC 9.7 4.8 - 10.8 x10'3/uL 02/04/2017 11:54 AM [facility] RBC 4.19(L) 4.20 - 5.40 x10'6/uL 02/04/2017 11:54 AM [facility] HGB 12.7 12.0 - 16.0 G/DL 02/04/2017 11:54 AM [facility] HCT 36.7(L) 38.0 - 48.0 % 02/04/2017 11:54 AM [facility] MCV 87.6 81.0 - 99.0 FL 02/04/2017 11:54 AM [facility] MCH 30.3 27.0 - 31.0 PG 02/04/2017 11:54 AM [facility] MCHC 34.6 32.0 - 36.0 G/DL 02/04/2017 11:54 AM [facility] RDW 12.6 11.5 - 14.5 % 02/04/2017 11:54 AM [facility] PLT 359 130 - 400 x10'3/uL 02/04/2017 11:54 AM [facility] MPV 11.7 9.3 - 12.2 FL 02/04/2017 11:54 AM [facility] NEUTROPHILS % 66.7(H) 43.0 - 65.0 % 02/04/2017 11:54 AM [facility] LYMPHOCYTES % 27.9 20.0 - 46.0 % 02/04/2017 11:54 AM [facility] MONOCYTES % 3.5(L) 5.0 - 12.0 % 02/04/2017 11:54 AM [facility] EOSINOPHILS 1.0 1.0 - 3.0 % 02/04/2017 11:54 AM [facility] BASOPHILS 0.6 0.0 - 1.0 % 02/04/2017 11:54 AM [facility] IMMATURE GRANS % 0.3 0.0 - 1.0 % 02/04/2017 11:54 AM [facility] 02/04/2017 11:3 4 AM [facility] Jurgen Posadas DNP LABORATORY Final Result [facility] [address] [place] [address], [place] [phone] documented in this encounter Visit Diagnoses Diagnosis Cellulitis- Primary Cellulitis and abscess of unspecified site Foot osteomyelitis, left ([facility]) Unspecified osteomyelitis, ankle and foot Osteomyelitis ([facility]) Unspecified osteomyelitis, site unspecified documented in this [...] in 24 hours. Given 02/05/2017 12:33 PM [facility] 650 mg Given 02/04/2017 11:21 PM [facility] 650 mg atorvastatin (LIPITOR) tablet 20 mg 20 mg, Oral, Nightly at bedtime, First dose on 02/04/17 at 2100, Until Discontinued Given 02/07/2017 9:13 PM [facility] 20 mg Given 02/06/2017 11:20 PM [facility] 20 mg Given 02/05/2017 9:54 PM [facility] 20 mg cefTRIAXone (ROCEPHIN) 2 g in sterile water IV syringe 2 g (rounded from 2,000 mg), Intravenous, at 120 mL/hr, Once, 1 dose, On 02/04/17 at 1300 Given 02/04/2017 12:51 PM [facility] 2 g 120 mL/hr clindamycin (CLEOCIN) 600 mg in sodium chloride 0.9 % 33.3 mL IV syringe 600 mg, Intravenous, at 66.6 mL/hr, Every 8 hours, First dose on 02/04/17 at 1400, Until Discontinued Given 02/07/2017 11:47 AM SUPERVISOR INSPECTION ROOM 600 mg 66.6 mL/hr Given 02/07/2017 1:55 AM [facility]PE[facility] ROOM 600 mg 66.6 mL/hr Given 02/06/2017 4:00 PM [facility]PE[facility] RO[facility] 600 mg 66.6 mL/hr doxycycline monohydrate (ADOXA) tablet 100 mg 100 mg, Oral, 2 times daily with meals, First dose on Viky 02/08/17 at 1700, Until Discontinued, Administer with 8 oz of water, preferably with food. enoxaparin (LOVENOX) syringe 40 mg 40 mg, Subcutaneous, Every 24 hours, First dose on 02/04/17 at 1645, Until Discontinued Given 02/07/2017 6:38 PM [facility] 40 mg Given 02/06/2017 7:31 PM [facility] 40 mg Given 02/05/2017 5:03 PM [facility]PE[facility] RO[facility] 40 mg famotidine (PEPCID) injection 20 mg [...] 2100, Until Discontinued Given 02/08/2017 8:28 AM SU[facility]PE[facility] ROOM 20 mg Given 02/07/2017 9:13 PM [facility] 20 mg Given 02/07/2017 8:51 AM SUPER[facility]PE[facility] ROOM 20 mg hydrochlorothiazide (HYDRODIURIL) tablet 25 mg 25 mg, Oral, Nightly, First dose on 02/04/17 at 2100, Until Discontinued Given 02/07/2017 9:13 PM [facility] 25 mg Given 02/06/2017 11:20 PM [facility] 25 mg Given 02/05/2017 10:08 PM [facility]PE[facility] ROOM 25 mg hydrocodone-acetaminophen (NORCO) 5-325 MG tablet 1 tablet 1 tablet, Oral, Once, 1 dose, On 02/04/17 at 1200, Maximum dose of acetaminophen is 4000 mg from all sources in 24 hours. Given 02/04/2017 11:47 AM SUPER[facility]OR [facility]PECTION ROOM 1 tablet insulin aspart protamine-insulin aspart (NOVOLOG 70/30) injection 50 Units 50 Units, Subcutaneous, 2 times daily before meals, First dose on 02/04/17 at 1700, Until Discontinued Given 02/06/2017 8:19 AM [facility]PER[facility]PE[facility] ROOM 50 Units Right Arm Given 02/05/2017 5:02 PM [facility]PE[facility] RO[facility] 50 Units Given 02/05/2017 8:24 AM SUPERVISOR INSPECTION ROOM 50 Units Ri ght Arm insulin aspart protamine-insulin aspart (NOVOLOG 70/30) injection 50 Units 50 Units, Subcutaneous, Daily before supper, First dose (after last modification) on Sun02/07/17 at 1600, Until Discontinued Given 02/07/2017 5:26 PM [facility]PER[facility]OR [facility]PE[facility] ROOM 50 Units insulin aspart protamine-insulin aspart (NOVOLOG 70/30) injection 60 Units 60 Units, Subcutaneous, Every morning before breakfast, First dose on Sun02/07/17 at 0700, Until Discontinued Given 02/08/2017 8:29 AM [facility]PE[facility] ROOM 60 Unit s Given 02/07/2017 7:52 AM [facility]PER[facility]OR [facility]PECTION ROOM 60 Units insulin lispro (HUMALOG) injection 0-14 [...] and Call Physician] Given 02/08/2017 12:27 PM [facility] 8 Units Given 02/08/2017 8:29 AM SUPER[facility]PECTION ROOM 2 Units Given 02/07/2017 10:20 PM SUPER[facility]OR [facility]PECTION ROOM 2 Units insulin lispro (HUMALOG) injection 0-7 [...] and Call Physician] Given 02/07/2017 10:00 PM [facility]PER[facility]PE[facility] ROOM 2 Unit s Given 02/05/2017 9:57 PM [facility]PE[facility] RO[facility] 4 Units Given 02/04/2017 11:25 PM SUPERVISOR [facility]PECTION ROOM 4 Units R ight Arm levofloxacin (LEVAQUIN) tablet 500 mg 500 mg, Oral, Daily, First dose on Viky 02/08/17 at 1430, Until Discontinued lisinopril (PRINIVIL,ZESTRIL) tablet 40 mg 40 mg, Oral, Nightly, First dose on Sun02/04/17 at 2100, Until Discontinued Given 02/07/2017 9:13 PM [facility] 40 mg Given 02/06/2017 11:20 PM [facility] 40 mg Given 02/05/2017 9:56 PM [facility]PER[facility]PE[facility] RO[facility] 40 mg magnesium sulfate 1 g in sodium chloride 0.9 % 50 mL IVPB 1 g, Intravenous, at 100 mL/hr, Once, 1 dose, On Sun02/07/17 at 1615 [facility] 02/07/2017 8:34 PM SUPERVISOR INSPECTION ROOM 1 g 100 mL/hr metoprolol tartrate (LOPRESSOR) tablet 100 mg 100 mg, Oral, Nightly, First dose on Sun02/04/17 at 2100, Until Discontinued Given 02/07/2017 9:13 PM [facility]PER[facility]PE[facility] ROOM 100 mg Given 02/06/2017 11:21 PM [facility]PER[facility]PE[facility] ROOM 100 mg Given 02/05/2017 9:56 PM SUPERVISOR [facility]PECTION ROOM 100 mg sodium chloride 0.9 % infusion 1 dose, Starting on Sun02/04/17 at 1249, Until Sun02/04/17 at 1251, Created by cabinet override [facility] 02/04/2017 12:51 PM SUPERVISOR INSPECTION ROOM 10 mLs sodium chloride 0.9 % infusion 1 dose, Starting on Sun02/04/17 at 2214, Until Sun02/05/17 at 0059, Created by cabinet override [facility] 02/05/2017 12:59 AM SUPERVISOR INSPECTION ROOM Right Arm vancomycin (VANCOCIN) 1,250 mg in sodium chloride 0.9 % 250 mL IVPB 1,250 mg, Intravenous, at 183.3 mL/hr, Every 12 hours, First dose on Sun02/05/17 at 0130, Until Discontinued [facility] 02/07/2017 3:03 PM [facility]PER[facility]PECTION ROOM 1,250 mg 183.3 mL/hr 02/07/2017 2:37 AM SUPERVISOR INSPECTION ROOM 1,250 mg 183.3 mL/hr [facility] 02/06/2017 2:20 PM SUPERVISOR INSPECTION ROOM 1,250 mg 183.3 mL/hr vancomycin (VANCOCIN) 1,750 mg in sodium chloride 0.9 % 500 mL IVPB 1,750 mg, Intravenous, at 267.5 mL/hr, Once, 1 dose, On 12/17/17 at 1330 New Bag 02/04/2017 1:24 PM SUPER[facility]OR [facility]PECTION ROOM 1,750 mg 267.5 mL/hr documented in this encounter Active and Recently Administered Medications Times are shown in [facility]PER[facility]OR INSPECTION ROOM. Scheduled Medication Order 02/06/2017 02/07/2017 02/08/2017 atorvastatin [...] Physician] documented in this encounter Care Teams Chemical Processing Supervisor Relationship Specialty Start Date End Date Jarred Fernández MD PCP - General FAMILY PRACTICE 07/21/15 09/30/20 documented as of this encounter
--- OUTSIDE RECORDS SUMMARY | 2024-03-03 01:32 | XMS_ITS | Encounter Summary ---
Author Organization [facility] Address [address] [place] [address]. [place], [place] [address] [place] [address] Care Team Providers Care School Psychometrist Name Role Phone Jarred Rod MD Primary Care Provider Unav ailable Crispin Gomez MD Unavailable [phone] Shira Shi PA-C Primary Care Provider [phone]- [phone] Jarred Rod MD Primary Care Provider Unav [...] COVID-19? No / Unsure 01/24/2021 11:10 AM MARKETING SERVICES COORDINATOR documented as of this encounter Functional [...] Contact Info) Description 03/14/2024 11:45 AM MARKETING SERVICES COORDINATOR Office Visit [facility] [phone] Marvin Mckeon MD [facility] [address] [place] [phone] 03/20/2024 11:30 AM MARKETING SERVICES COORDINATOR Office Visit [facility] Family Medicine - [address] [phone] Abiodun Segura II, MD [address] [place] [phone] documented as of this encounter Visit Diagnoses Not on filedocumented in this encounter Additional Health Concerns Infection Onset Date Last Indicated Resolved Time COVID-19 Rule Out 09/22/2019 09/22/2019 09/24/2019 11:13 PM CDT COVID-19 Rule Out 11/02/2019 11/02/2019 11/03/2019 3:22 PM CDT COVID-19 Rule Out 12/13/2019 12/13/2019 12/14/2019 3:06 PM CDT COVID-19 Confirmed 12/13/2019 12/13/2019 0 12:34 AM MARKETING SERVICES COORDINATOR documented as of this encounter Care Teams School Psychometrist Relationship Specialty Start Date End Date Jarred Rod MD PCP - General FAMILY PRACTICE 07/21/15 09/30/20 Shira Shi PA-C [address] [place] [address] PCP - General PHYSICIAN AUXILIARY EQUIPMENT TENDER 10/01/20 11/17/20 Jarred Rod MD [address] [place] [address] PCP - General FAMILY PRACTICE 11/18/20 12/05/20 Abiodun Segura II, MD [address] [place] [address] PCP - General FAMILY PRACTICE 12/06/20 01/16/21 Jarred Rod MD [address] [place] [address] PCP - General FAMILY PRACTICE 01/17/21 03/08/21 Crispin Gomez MD [facility] [address] [place] [address] [place] Control Officer INTERNAL MEDICINE 07/21/15 documented as of this encounter
--- OUTSIDE RECORDS SUMMARY | 2024-03-03 01:32 | XMS_ITS | Encounter Summary ---
Author Organization [facility] Address [address] [place] [address]. [place] [address] [place] [address] Care Team Providers Care Photo Print Specialist Name Role Phone Jarred Rod MD Primary Care Provider Unav Crispin Peres MD Unavailable [phone] Encounter Details Date Type Department Care Team (Late st Contact Info) Description 02/02/2016 Emergency [facility] Emergency Room [place], [place] [id number] Patricia Rankin L, DO [address] [place], [place] [phone] Social History Tobacco Use Types Packs/Day Years [...] (Late Contact Info) Description 03/14/2024 11:45 AM ORDER ENTRY ADMINISTRATOR Office Visit [facility] [phone] [facility]ke[facility] [address] [place] [address] 03/20/2024 11:30 AM ORDER ENTRY ADMINISTRATOR Office Visit [facility] Family Medicine - [place] [address] [place] [phone] Abiodun Segura II, MD [address] [place] [address] documented as of this encounter Procedures Procedure Name Priority Date/Time Associated Diagnosis Comments PARTIAL THROMBOPLASTIN TIME,PTT STAT 02/02/2016 1:12 PM ORDER ENTRY ADMINISTRATOR PROTHROMBIN TIME, VENOUS STAT 02/02/2016 1:12 PM ORDER ENTRY ADMINISTRATOR COMPREHENSIVE METABOLIC PANEL STAT 02/02/2016 1:12 PM ORDER ENTRY ADMINISTRATOR CKMB(MB FRACTION ONLY) STAT 6 1:12 PM ORDER ENTRY ADMINISTRATOR CBC W/DIFF AUTOMATED STAT 02/02/2016 1:12 PM ORDER ENTRY ADMINISTRATOR TROPONIN, QUANT STAT 02/02/2016 1:12 PM ORDER ENTRY ADMINISTRATOR CK (CPK) STAT 02/02/2016 1:12 PM ORDER ENTRY ADMINISTRATOR documented in this encounter Results * TROPONIN, QUANT (02/02/2016 1:12 PM ORDER ENTRY ADMINISTRATOR) TROPONIN I <0.30 <0.30 ng/mL 02/02/2016 2:49 PM ORDER ENTRY ADMINISTRATOR [facility] SERUM OR PLASMA SPECIMEN / Unknown 02/02/2016 1:12 PM ORDER ENTRY ADMINISTRATOR 02/02/2016 2:13 PM ORDER ENTRY ADMINISTRATOR us Generic Conversion Md [facility] Final R esult [facility] [address] [place] [address], * CKMB(MB FRACTION ONLY) (02/02/2016 1:12 PM ORDER ENTRY ADMINISTRATOR) CK-MB 1.80 <4.30 ng/mL 02/02/2016 2:49 PM ORDER ENTRY ADMINISTRATOR [facility] SERUM OR PLASMA SPECIMEN / Unknown 02/02/2016 1:12 PM ORDER ENTRY ADMINISTRATOR 02/02/2016 2:13 PM ORDER ENTRY ADMINISTRATOR us Generic Conversion Md [facility] Final R [facility] [address] [place] [address], * PARTIAL THROMBOPLASTIN TIME,PTT (02/02/2016 1:12 PM ORDER ENTRY ADMINISTRATOR) PTT 27.8 25.5 - 37.6 SEC 02/02/2016 2:40 PM ORDER ENTRY ADMINISTRATOR [facility] PLASMA SPECIMEN / Unknown 02/02/2016 1:12 PM ORDER ENTRY ADMINISTRATOR 02/02/2016 2:13 PM ORDER ENTRY ADMINISTRATOR us Generic Conversion [facility] Final R esult [facility] [address] [place] [id number], * PROTIME/INR, VENOUS (02/02/2016 1:12 PM ORDER ENTRY ADMINISTRATOR) PROTIME 11.5 9.6 - 12.2 SEC 02/02/2016 2:40 PM ORDER ENTRY ADMINISTRATOR [facility] INR 1.0 02/02/2016 2:40 PM ORDER ENTRY ADMINISTRATOR [facility] Comment: Recommended INR Therapeutic Goals: ??2.0-3.0 Routine Therapy ??2.5-3.5 Mechanical Prosthetic Valves (High Risk) ??3.0-4.0 Acute MA (to prevent Systemic Embolism) The INR is used only for patients on stable oral anticoagulant therapy. It makes no significant contribution to the diagnosis or treatment of patients whose Protime is prolonged for other reasons. 02/02/2016 1:12 PM ORDER ENTRY ADMINISTRATOR 02/02/2016 2:13 PM ORDER ENTRY ADMINISTRATOR us Generic Conversion Md [facility] Final R esult Performing Organization Address [facility]/ZIP Co de Phone Number [facility] [address] [place] [address], * CK (CPK) (02/02/2016 1:12 PM ORDER ENTRY ADMINISTRATOR) CPK 156 26 - 192 U/L 02/02/2016 2:58 PM ORDER ENTRY ADMINISTRATOR [facility] SERUM OR PLASMA SPECIMEN / Unknown 02/02/2016 1:12 PM ORDER ENTRY ADMINISTRATOR 02/02/2016 2:13 PM ORDER ENTRY ADMINISTRATOR us Generic Conversion Md [facility] Final R esult Performing Organization Address [facility] Co de Phone Number [facility] [address] [place] [address], * (ABNORMAL) COMPREHENSIVE METABOLIC PANEL (02/02/2016 1:12 PM ORDER ENTRY ADMINISTRATOR) GLUCOSE 255(H) 70 - 99 mg/dL 02/02/2016 2:58 PM ORDER ENTRY ADMINISTRATOR [facility] BUN 20 8 - 23 mg/dL 02/02/2016 2:58 PM ORDER ENTRY ADMINISTRATOR [facility] CREATININE S/P/B 0.68 0.60 - 1.10 mg/dL 02/02/2016 2:58 PM ORDER ENTRY ADMINISTRATOR [facility] SODIUM S/P/B 135(L) 136 - 145 mmol/L 02/02/2016 2:58 PM ORDER ENTRY ADMINISTRATOR [facility] POTASSIUM S/P/B 4.4 3.5 - 5.1 mmol/L 02/02/2016 2:58 PM [facility] CHLORIDE S/P/B 95(L) 98 - 107 mmol/L 02/02/2016 2:58 PM [facility] CO2 25 22 - 29 mmol/L 02/02/2016 2:58 PM [facility] BILIRUBIN TOTAL S/P/B 0.6 0.2 - 1.2 mg/dL 02/02/2016 2:58 PM [facility] CALCIUM S/P/B 10.2 8.6 - 10.2 mg/dL 02/02/2016 2:58 PM [facility] ALKALINE PHOSPHATASE S/P/B 126(H) 35 - 104 U/L 02/02/2016 2:58 PM [facility] AST 15 0 - 32 U/L 02/02/2016 2:58 PM [facility] TOTAL PROTEIN S/P/B 8.9(H) 6.4 - 8.3 g/dL 02/02/2016 2:58 PM [facility] ALBUMIN S/P/B 4.2 3.5 - 5.2 g/dL 02/02/2016 2:58 PM [facility] ALT 18 0 - 33 U/L 02/02/2016 2:58 PM [facility] GLOBULIN 4.7(H) 2.3 - 3.6 g/dL 02/02/2016 2:58 PM [facility] A/G RATIO 0.9(L) 1.0 - 2.0 02/02/2016 2:58 PM [facility] ANION GAP 19 8 - 20 02/02/2016 2:58 PM [facility] EGFR NON-AFR. AMER. >60 >60 mL/min/1.7 3m'2 02/02/2016 2:58 PM [facility] EGFR AFR. AMER. >60 >60 mL/min/1.7 3m'2 02/02/2016 2:58 PM ORDER ENTRY ADMINISTRATOR [facility] Comment: NOTE: eGFR is not calculated for patients <18 years of age. This is an estimated GFR (CKD EPI) and should not be used for calculating drug doses. 02/02/2016 1:12 PM ORDER ENTRY ADMINISTRATOR 02/02/2016 2:13 PM ORDER ENTRY ADMINISTRATOR us Generic Conversion Md [facility] Final R esult [facility] [address] [place] [id number], * (ABNORMAL) CBC W/DIFF AUTOMATED (02/02/2016 1:12 PM ORDER ENTRY ADMINISTRATOR) WBC 11.8(H) 4.8 - 10.8 x10'3/uL 02/02/2016 2:36 PM [facility] RBC 4.14(L) 4.20 - 5.40 x10'6/uL 02/02/2016 2:36 PM [facility] HGB 12.6 12.0 - 16.0 G/DL 02/02/2016 2:36 PM [facility] HCT 36.0(L) 38.0 - 48.0 % 02/02/2016 2:36 PM [facility] MCV 87.0 81.0 - 99.0 FL 02/02/2016 2:36 PM [facility] MCH 30.4 27.0 - 31.0 PG 02/02/2016 2:36 PM [facility] MCHC 35.0 32.0 - 36.0 G/DL 02/02/2016 2:36 PM [facility] RDW 12.4 11.5 - 14.5 % 02/02/2016 2:36 PM ORDER ENTRY ADMINISTRATOR [facility] PLT 309 130 - 400 x10'3/uL 02/02/2016 2:36 PM ORDER ENTRY ADMINISTRATOR [facility] MPV 11.1 9.3 - 12.2 FL 02/02/2016 2:36 PM ORDER ENTRY ADMINISTRATOR [facility] IMMATURE GRANS % 0.3 0.0 - 1.0 % 02/02/2016 2:36 PM ORDER ENTRY ADMINISTRATOR [facility] NEUTROPHILS % 79.6(H) 43.0 - 65.0 % 02/02/2016 2:36 PM ORDER ENTRY ADMINISTRATOR [facility] LYMPHOCYTES % 16.4(L) 20.0 - 46.0 % 02/02/2016 2:36 PM ORDER ENTRY ADMINISTRATOR [facility] MONOCYTES % 3.2(L) 5.0 - 12.0 % 02/02/2016 2:36 PM ORDER ENTRY ADMINISTRATOR [facility] EOSINOPHILS 0.2(L) 1.0 - 3.0 % 02/02/2016 2:36 PM [facility] BASOPHILS 0.3 0.0 - 1.0 % 02/02/2016 2:36 PM [facility] WHOLE BLOOD SPECIMEN / Unknown 02/02/2016 1:12 PM ORDER ENTRY ADMINISTRATOR 02/02/2016 2:13 PM ORDER ENTRY ADMINISTRATOR us Generic Conversion [facility] Final R esult [facility] [address] [place] [address], documented in this encounter Visit Diagnoses Diagnosis Chest pain Chest pain, unspecified documented in this encounter Care Teams Photo Print Specialist Relationship Specialty Start Date End Date Jarred Rod MD PCP - General FAMILY PRACTICE 07/21/15 09/30/20 [place] [address] [facility] Nurse INTERNAL MEDICINE 07/21/15 documented as of this encounter
--- OUTSIDE RECORDS SUMMARY | 2024-03-03 01:32 | XMS_ITS | Encounter Summary ---
Author Organization [facility] Address [address] [place] [address]. [place], [place] [phone] [place] [address] Care Team Providers Care Final Touch Up Painter Name Role Phone Jarred Rod MD Primary Care Provider Unav ailable Shira Shi PA-C Primary Care Provider [phone]- [phone] Jarred Rod MD Primary Care Provider Unav [...] No / Unsure 01/24/2021 11:10 AM MANAGER FIELD SERVICES documented as of this encounter Functional [...] Contact Info) Description 03/14/2024 11:45 AM MANAGER FIELD SERVICES Office Visit [facility] [phone] Marvin Mckeon MD Three [facility] [address] [place] [phone] 03/20/2024 11:30 AM MANAGER FIELD SERVICES Office Visit [facility] Family Medicine - [address] [phone] Abiodun Segura II, MD [address] [place] [phone] documented as of this encounter Visit Diagnoses Not on filedocumented in this encounter Additional Health Concerns Infection Onset Date Last Indicated Resolved Time COVID-19 Rule Out 09/22/2019 09/22/2019 09/24/2019 11:13 PM CDT COVID-19 Rule Out 11/02/2019 11/02/2019 11/03/2019 3:22 PM CDT COVID-19 Rule Out 12/13/2019 12/13/2019 12/14/2019 3:06 PM CDT COVID-19 Confirmed 12/13/2019 12/13/2019 0 12:34 AM MANAGER FIELD SERVICES documented as of this encounter Care Teams Final Touch Up Painter Relationship Specialty Start Date End Date Jarred Rod MD PCP - General FAMILY PRACTICE 07/21/15 09/30/20 Shira Shi, JESUSC [address] [place] [address] PCP - General PHYSICIAN PLUMBING MECHANIC 10/01/20 11/17/20 Jarred Rod MD [address] [place] [address] PCP - General FAMILY PRACTICE 11/18/20 12/05/20 Abiodun Segura II, MD [address] [place] [address] PCP - General FAMILY PRACTICE 12/06/20 01/16/21 Jarred Rod MD [address] [place] [address] PCP - General FAMILY PRACTICE 01/17/21 03/08/21 documented as of this encounter
--- OUTSIDE RECORDS SUMMARY | 2024-03-03 01:32 | XMS_ITS | Encounter Summary ---
Author Organization [facility] Address [address] [place] [address]. [place], [place] [address] [place] [address] Care Team Providers Care Book Packer Name Role Phone Jarred Rod MD Primary Care Provider Unav ailable Shira Shi PA-C Primary Care Provider [phone]- [phone] Jarred Rod MD Primary Care Provider Unav [...] COVID-19? No / Unsure 01/24/2021 11:10 AM SHELLFISH CHECKER documented as of this encounter Functional [...] st Contact Info) Description 03/14/2024 11:45 AM SHELLFISH CHECKER Office Visit [facility] [phone] Marvin Mckeon MD Three [facility] [address] [place] [address] 03/20/2024 11:30 AM SHELLFISH CHECKER Office Visit [facility] Family Medicine - [place] [address] [place] [phone] Abiodun Segura II, MD [address] [place], [place] [phone] documented as of this encounter Procedures Procedure [...] COVID-19 Confirmed 12/13/2019 12/13/2019 0 12:34 AM SHELLFISH CHECKER documented as of this encounter Care Teams Book Packer Relationship Specialty Start Date End Date Jarred Rod MD PCP - General FAMILY PRACTICE 07/21/15 09/30/20 Shira Shi PA-C [address] [place] [address] PCP - General PHYSICIAN AXMINSTER WEAVER 10/01/20 11/17/20 Jarred Rod MD [address] [place] [address] PCP - General FAMILY PRACTICE 11/18/20 12/05/20 Abiodun Segura II, MD [address] [place] [address] PCP - General FAMILY PRACTICE 12/06/20 01/16/21 Jarred Rod MD [address] [place] [address] PCP - General FAMILY PRACTICE 01/17/21 03/08/21 documented as of this encounter
--- OUTSIDE RECORDS SUMMARY | 2024-03-03 01:32 | XMS_ITS | Encounter Summary ---
Author Organization [facility] Address [address] [place] [address]. [place], [place] [address] [place] [address] Care Team Providers Care Service Aide Name Role Phone Jarred Rod MD Primary Care Provider Unav ailable Shira Shi PA-C Primary Care Provider [phone]- [phone] Jarred Rod MD Primary Care Provider Unav [...] No / Unsure 01/24/2021 11:10 AM LEAD DATA ENTRY OPERATOR documented as of this encounter Functional [...] Contact Info) Description 03/14/2024 11:45 AM LEAD DATA ENTRY OPERATOR Office Visit [facility] [phone] Marvin Mckeon MD Three [facility] [address] [place] [address] 03/20/2024 11:30 AM LEAD DATA ENTRY OPERATOR Office Visit [facility] Family Medicine - [place] [address] [place] [phone] Abiodun Segura II, MD [address] [place], [place] [phone] documented as of this encounter Procedures Procedure [...] Confirmed 12/13/2019 12/13/2019 0 12:34 AM LEAD DATA ENTRY OPERATOR documented as of this encounter Care Teams Service Aide Relationship Specialty Start Date End Date Jarred Rod MD PCP - General FAMILY PRACTICE 07/21/15 09/30/20 Shira Shi PA-C [address] [place] [address] PCP - General PHYSICIAN CARPENTER SUPERVISOR 10/01/20 11/17/20 Jarred Rod MD [address] [place] [address] PCP - General FAMILY PRACTICE 11/18/20 12/05/20 Abiodun Segura II, MD [address] [place] [phone] PCP - General FAMILY PRACTICE 12/06/20 01/16/21 Jarred Rod MD [address] [place] [address] PCP - General FAMILY PRACTICE 01/17/21 03/08/21 documented as of this encounter
--- OUTSIDE RECORDS SUMMARY | 2024-03-03 01:32 | XMS_ITS | Encounter Summary ---
Author Organization [facility] Address [address] [place] [address]. [place], [place] [address] [place] [address] Care Team Providers Care Traffic Survey Technician Name Role Phone Jarred Rod MD Primary Care Provider Unav ailable Shira Shi PA-C Primary Care Provider +1- [phone] Jarred Rod MD Primary Care Provider Unav [...] COVID-19? No / Unsure 01/24/2021 11:10 AM DATAWAREHOUSE DEVELOPER documented as of this encounter Functional [...] st Contact Info) Description 03/14/2024 11:45 AM DATAWAREHOUSE DEVELOPER Office Visit [facility] [phone] Marvin Mckeon MD Three [facility] [address] [place] [address] [phone] 03/20/2024 11:30 AM DATAWAREHOUSE DEVELOPER Office Visit [facility] Family Medicine - [address] [address] Abiodun Segura II, MD [address] [place] [address] [phone] documented as of this encounter Visit Diagnoses Not on filedocumented in this encounter Additional Health Concerns Infection Onset Date Last Indicated Resolved Time COVID-19 Rule Out 09/22/2019 09/22/2019 09/24/2019 11:13 PM CDT COVID-19 Rule Out 11/02/2019 11/02/2019 11/03/2019 3:22 PM CDT COVID-19 Rule Out 12/13/2019 12/13/2019 12/14/2019 3:06 PM CDT COVID-19 Confirmed 12/13/2019 12/13/2019 0 12:34 AM DATAWAREHOUSE DEVELOPER documented as of this encounter Care Teams Traffic Survey Technician Relationship Specialty Start Date End Date Jarred Rod MD PCP - General FAMILY PRACTICE 07/21/15 09/30/20 Shira Shi, JESUSC [address] [place] [address] PCP - General PHYSICIAN BROOMCORN THRESHER 10/01/20 11/17/20 Jarred Rod MD [address] [place] [address] PCP - General FAMILY PRACTICE 11/18/20 12/05/20 Abiodun Segura II, MD [address] [place] [address] PCP - General FAMILY PRACTICE 12/06/20 01/16/21 Jarred Rod MD [address] [place] [address] PCP - General FAMILY PRACTICE 01/17/21 03/08/21 documented as of this encounter
--- OUTSIDE RECORDS SUMMARY | 2024-03-03 01:32 | XMS_ITS | Encounter Summary ---
Author Organization [facility] Address [address] [place] [address]. [place], [place] [address] [place] [address] Care Team Providers Care Pass Worker Name Role Phone Jarred Rod MD Primary Care Provider Unav ailable Shira Shi PA-C Primary Care Provider +1- [phone] Jarred Rod MD Primary Care Provider Unav [...] No / Unsure 01/24/2021 11:10 AM SHADE MAKER documented as of this encounter Functional [...] Contact Info) Description 03/14/2024 11:45 AM SHADE MAKER Office Visit [facility] [phone] Marvin Mckeon MD Three [facility] [address] [place] [address] [phone] 03/20/2024 11:30 AM SHADE MAKER Office Visit [facility] Family Medicine - [address] [address] Abiodun Segura II, MD [address] [place] [address] [phone] documented as of this encounter Visit Diagnoses Not on filedocumented in this encounter Additional Health Concerns Infection Onset Date Last Indicated Resolved Time COVID-19 Rule Out 09/22/2019 09/22/2019 09/24/2019 11:13 PM CDT COVID-19 Rule Out 11/02/2019 11/02/2019 11/03/2019 3:22 PM CDT COVID-19 Rule Out 12/13/2019 12/13/2019 12/14/2019 3:06 PM CDT COVID-19 Confirmed 12/13/2019 12/13/2019 0 12:34 AM SHADE MAKER documented as of this encounter Care Teams Pass Worker Relationship Specialty Start Date End Date Jarred Rod MD PCP - General FAMILY PRACTICE 07/21/15 09/30/20 Shira Shi, JESUSC [address] [place] [address] PCP - General PHYSICIAN POWER TRUCK DRIVER 10/01/20 11/17/20 Jarred Rod MD [address] [place] [address] PCP - General FAMILY PRACTICE 11/18/20 12/05/20 Abiodun Segura II, MD [address] [place] [address] PCP - General FAMILY PRACTICE 12/06/20 01/16/21 Jarred Rod MD [address] [place] [phone] PCP - General FAMILY PRACTICE 01/17/21 03/08/21 documented as of this encounter
--- OUTSIDE RECORDS SUMMARY | 2024-03-03 01:32 | XMS_ITS | Encounter Summary ---
Author Organization [facility] Address [address] [place] [address]. [place], [place] [address] [place] [address] Care Team Providers Care Board Catcher Name Role Phone Jarred Rod MD Primary Care Provider Unav ailable Shira Shi PA-C Primary Care Provider +1- [phone] Jarred Rod MD Primary Care Provider Unav [...] COVID-19? No / Unsure 01/24/2021 11:10 AM AZURE PRINCIPAL SOLUTION SPECIALIST documented as of this encounter Functional [...] st Contact Info) Description 03/14/2024 11:45 AM AZURE PRINCIPAL SOLUTION SPECIALIST Office Visit [facility] [phone] Marvin Mckeon MD Three [facility] [address] [place] [address] [phone] 03/20/2024 11:30 AM AZURE PRINCIPAL SOLUTION SPECIALIST Office Visit [facility] Family Medicine - [address] [address] Abiodun Segura II, MD [address] [place] [address] [phone] documented as of this encounter Visit Diagnoses Not on filedocumented in this encounter Additional Health Concerns Infection Onset Date Last Indicated Resolved Time COVID-19 Rule Out 09/22/2019 09/22/2019 09/24/2019 11:13 PM CDT COVID-19 Rule Out 11/02/2019 11/02/2019 11/03/2019 3:22 PM CDT COVID-19 Rule Out 12/13/2019 12/13/2019 12/14/2019 3:06 PM CDT COVID-19 Confirmed 12/13/2019 12/13/2019 0 12:34 AM AZURE PRINCIPAL SOLUTION SPECIALIST documented as of this encounter Care Teams Board Catcher Relationship Specialty Start Date End Date Jarred Rod MD PCP - General FAMILY PRACTICE 07/21/15 09/30/20 Shira Shi, JESUSC [address] [place] [address] PCP - General PHYSICIAN MEDICAL LABORATORY TECHNOLOGIST 10/01/20 11/17/20 Jarred Rod MD [address] [place] [address] PCP - General FAMILY PRACTICE 11/18/20 12/05/20 Abiodun Segura II, MD [address] [place] [address] PCP - General FAMILY PRACTICE 12/06/20 01/16/21 Jarred Rod MD [address] [place] [address] PCP - General FAMILY PRACTICE 01/17/21 03/08/21 documented as of this encounter
--- OUTSIDE RECORDS SUMMARY | 2024-03-03 01:32 | XMS_ITS | Encounter Summary ---
Author Organization [facility] Address [address] [place] [address]. [place], [place] [address] [place] [address] Care Team Providers Care Zipper Repairer Name Role Phone Jarred Rod MD Primary Care Provider Unav ailable Shira Shi PA-C Primary Care Provider +1- [phone] Jarred Rod MD Primary Care Provider Unav [...] COVID-19? No / Unsure 01/24/2021 11:10 AM DAM WORKER documented as of this encounter Functional [...] st Contact Info) Description 03/14/2024 11:45 AM DAM WORKER Office Visit [facility] [address] Marvin Mckeon MD Three [facility] [address] [place] [address] [phone] 03/20/2024 11:30 AM DAM WORKER Office Visit [facility] Family Medicine - [address] [address] Abiodun Segura II, MD [address] [place] [address] [phone] documented as of this encounter Visit Diagnoses Not on filedocumented in this encounter Additional Health Concerns Infection Onset Date Last Indicated Resolved Time COVID-19 Rule Out 09/22/2019 09/22/2019 09/24/2019 11:13 PM CDT COVID-19 Rule Out 11/02/2019 11/02/2019 11/03/2019 3:22 PM CDT COVID-19 Rule Out 12/13/2019 12/13/2019 12/14/2019 3:06 PM CDT COVID-19 Confirmed 12/13/2019 12/13/2019 0 12:34 AM DAM WORKER documented as of this encounter Care Teams Zipper Repairer Relationship Specialty Start Date End Date Jarred Rod MD PCP - General FAMILY PRACTICE 07/21/15 09/30/20 Shira Shi, JESUSC [address] [place] [address] PCP - General PHYSICIAN SECURITY CONTROLS ASSESSOR 10/01/20 11/17/20 Jarred Rod MD [address] [place] [address] PCP - General FAMILY PRACTICE 11/18/20 12/05/20 Abiodun Segura II, MD [address] [place] [phone] PCP - General FAMILY PRACTICE 12/06/20 01/16/21 Jarred Rod MD [address] [place] [address] PCP - General FAMILY PRACTICE 01/17/21 03/08/21 documented as of this encounter
--- OUTSIDE RECORDS SUMMARY | 2024-03-03 01:32 | XMS_ITS | Encounter Summary ---
Author Organization [facility] Address [address] [place] [address]. [place] [address] [place] [address] Care Team Providers Care Tool Engine Lathe Set Up Operator Name Role Phone Terrance Fernández MD Primary Care Provider Unav ailable Reason for Visit * Reason Comments Foot Ulcer Encounter Details Date Type Department Care Team (Late st Contact Info) Description 06/28/2017 3:15 PM CDT Office Visit [facility] at [facility], [facility] [address] [place], [place] [address] Hubert Barrera MD [facility]. [facility] [address] [place], [place] [phone] Foot Ulcer Social History Tobacco Use Types [...] Written by the doctors and editors at [facility] Do people with diabetes have a higher [...] ?Take care of your gums and teeth. Browning your teeth twice a day, floss your [...] process is complete. This topic retrieved from [employer] on: Feb 22, 2017. Topic 18079 Version 4.0 Release: 25.6.2-122 - C26.3 ?2018??[employer] and/or its affiliates.??All rights reserved. figure 1: Trim your toenails Graphic 54881 Version 1.0 figure 2: Foot check for [...] the skin ?? Blisters ?? Swelling Graphic 62795 Version 3.0 Consumer Information Use and Disclaimer [...] that is right for you.The use of [employer] content is governed by the [employer] Terms of Use. ??2018 [employer]. All rights reserved. Copyright ?2018??[employer]. and/or its affiliates.??All rights reserved. documented in [...] st Contact Info) Description 03/14/2024 11:45 AM OPERATING ROOM SCHEDULER Office Visit [facility] [address] Marvin Mckeon MD Three [facility] [address] [place] [address] 03/20/2024 11:30 AM OPERATING ROOM SCHEDULER Office Visit [facility] Family Medicine - [place] [address] [place] [phone] Abiodun Segura II, MD [address] [place] [address] documented as of this encounter Visit Diagnoses Diagnosis Diabetic ulcer of left foot associated with type 2 diabetes mellitus, limited to breakdown of skin, unspecified part of foot (CMS/HCC HHS/HCC)- Primary documented in this encounter Care Teams Tool Engine Lathe Set Up Operator Relationship Specialty Start Date End Date Terrance Fernández MD PCP - General FAMILY PRACTICE 07/21/15 09/30/20 documented as of this encounter
--- OUTSIDE RECORDS SUMMARY | 2024-03-03 01:32 | XMS_ITS | Encounter Summary ---
Author Organization [facility] Address [address] [place] [address]. [place] [address] [place] [address] Care Team Providers Care Vp Packaging Name Role Phone Jarred Rod MD Primary Care Provider Unav ailable Encounter Details Date Type Department Care Team (Late Contact Info) Description 06/29/2017 Orders Only [facility] at [facility], [facility] [address] [place] [address] Hubert Barrera MD [facility]. [facility] [address] [place] [address] Social History Tobacco Use Types [...] (Late Contact Info) Description 03/14/2024 11:45 AM HEDGE FUND ACCOUNTANT Office Visit [facility] [address] Marvin Mckeon MD Three [facility] [address] [place] [address] 03/20/2024 11:30 AM HEDGE FUND ACCOUNTANT Office Visit [facility] Family Medicine - [place] [address] [place] [phone] Abiodun Segura II, MD [address] [place] [address] documented as of this encounter Visit Diagnoses Not on filedocumented in this encounter Care Teams Vp Packaging Relationship Specialty Start Date End Date Jarred Rod MD PCP - General FAMILY PRACTICE 07/21/15 09/30/20 documented as of this encounter
--- OUTSIDE RECORDS SUMMARY | 2024-03-03 01:32 | XMS_ITS | Encounter Summary ---
Author Organization [facility] Address [address] [place] [address]. [place], [place] [address] [place] [id number] Care Team Providers Care Director Client Services Name Role Phone Jarred Rod MD Primary Care Provider Unav Crispin Peres MD Unavailable [phone] Encounter Details Date Type Department Care Team (Late Contact Info) Description 01/21/2016 Abstract [facility] [place] [address] , MD Estella Cobb [place], [...] (Late Contact Info) Description 03/14/2024 11:45 AM FRONT OFFICE MEDICAL ASSISTANT Office Visit [facility]-[address] [phone] aMrvin Mckeon MD [facility] [address] [place] [address] 03/20/2024 11:30 AM FRONT OFFICE MEDICAL ASSISTANT Office Visit [facility] Family Medicine - [place] [address] [place] [phone] Abiodun Segura II, MD [address] [place] [address] documented as of this encounter Procedures Procedure Name Priority Date/Time Associated Diagnosis Comments BASIC METABOLIC PANEL STAT 01/22/2016 10:59 AM FRONT OFFICE MEDICAL ASSISTANT POCT GLUCOSE - CORREA DOCKED DEVICE Routine 01/22/2016 5:53 AM FRONT OFFICE MEDICAL ASSISTANT POCT GLUCOSE - CORREA DOCKED DEVICE Routine 01/21/2016 8:43 PM FRONT OFFICE MEDICAL ASSISTANT BASIC METABOLIC PANEL STAT 01/21/2016 5:07 PM FRONT OFFICE MEDICAL ASSISTANT POCT GLUCOSE - CORREA DOCKED DEVICE Routine 01/21/2016 4:25 PM FRONT OFFICE MEDICAL ASSISTANT POCT GLUCOSE - CORREA DOCKED DEVICE Routine 01/21/2016 12:38 PM FRONT OFFICE MEDICAL ASSISTANT BASIC METABOLIC PANEL Routine 01/21/2016 6:14 AM FRONT OFFICE MEDICAL ASSISTANT HEPATIC FUNCTION PANEL TIMED 6 6:14 AM FRONT OFFICE MEDICAL ASSISTANT CBC W/DIFF AUTOMATED Routine 01/21/2016 6:14 AM FRONT OFFICE MEDICAL ASSISTANT POCT GLUCOSE - CORREA DOCKED DEVICE Routine 01/21/2016 6:13 AM FRONT OFFICE MEDICAL ASSISTANT POCT GLUCOSE - CORREA DOCKED DEVICE Routine 01/20/2016 10:05 PM FRONT OFFICE MEDICAL ASSISTANT POCT GLUCOSE - CORREA DOCKED DEVICE Routine 01/20/2016 5:22 PM FRONT OFFICE MEDICAL ASSISTANT URINALYSIS WI REFLEX TO CULTURE Routine 01/20/2016 10:40 AM FRONT OFFICE MEDICAL ASSISTANT POCT GLUCOSE - CORREA DOCKED DEVICE Routine 01/20/2016 10:35 AM FRONT OFFICE MEDICAL ASSISTANT BASIC METABOLIC PANEL Routine 01/20/2016 6:37 AM FRONT OFFICE MEDICAL ASSISTANT CBC W/DIFF AUTOMATED Routine 01/20/2016 6:37 AM FRONT OFFICE MEDICAL ASSISTANT LIPASE Routine 01/20/2016 6:37 AM FRONT OFFICE MEDICAL ASSISTANT POCT GLUCOSE - CORREA DOCKED DEVICE Routine 01/20/2016 6:00 AM FRONT OFFICE MEDICAL ASSISTANT POCT GLUCOSE - CORREA DOCKED DEVICE Routine 01/20/2016 4:27 AM FRONT OFFICE MEDICAL ASSISTANT POCT GLUCOSE - CORREA DOCKED DEVICE Routine 01/19/2016 9:29 PM FRONT OFFICE MEDICAL ASSISTANT POCT GLUCOSE - CORREA DOCKED DEVICE Routine 01/19/2016 5:41 PM FRONT OFFICE MEDICAL ASSISTANT POCT GLUCOSE - CORREA DOCKED DEVICE Routine 01/19/2016 12:58 PM FRONT OFFICE MEDICAL ASSISTANT PROTHROMBIN TIME, VENOUS STAT 01/19/2016 11:50 AM FRONT OFFICE MEDICAL ASSISTANT COMPREHENSIVE METABOLIC PANEL STAT 01/19/2016 11:50 AM FRONT OFFICE MEDICAL ASSISTANT CBC W/DIFF AUTOMATED STAT 01/19/2016 11:50 AM FRONT OFFICE MEDICAL ASSISTANT documented in this encounter Results * (ABNORMAL) BASIC METABOLIC PANEL (01/22/2016 10:59 AM FRONT OFFICE MEDICAL ASSISTANT) GLUCOSE 266(H) 70 - 99 mg/dL 01/22/2016 12:40 PM FRONT OFFICE MEDICAL ASSISTANT [facility] BUN 16 8 - 23 mg/dL 01/22/2016 12:40 PM FRONT OFFICE MEDICAL ASSISTANT [facility] CREATININE S/P/B 0.86 0.60 - 1.10 mg/dL 01/22/2016 12:40 PM FRONT OFFICE MEDICAL ASSISTANT [facility] SODIUM S/P/B 136 136 - 145 mmol/L 01/22/2016 12:40 PM FRONT OFFICE MEDICAL ASSISTANT [facility] POTASSIUM S/P/B 4.2 3.5 - 5.1 mmol/L 01/22/2016 12:40 PM [facility] CHLORIDE S/P/B 102 98 - 107 mmol/L 01/22/2016 12:40 PM [facility] CO2 23 22 - 29 mmol/L 01/22/2016 12:40 PM [facility] CALCIUM S/P/B 8.2(L) 8.6 - 10.2 mg/dL 01/22/2016 12:40 PM [facility] ANION GAP 15 8 - 20 01/22/2016 12:40 PM [facility] EGFR NON-AFR. AMER. >60 >60 mL/min/1.7 3m'2 01/22/2016 12:40 PM [facility] EGFR AFR. AMER. >60 >60 mL/min/1.7 3m'2 01/22/2016 12:40 PM [facility] Comment: NOTE: eGFR is not calculated for patients <18 years of age. This is an estimated GFR (CKD EPI) and should not be used for calculating drug doses. 01/22/2016 10:5 9 AM FRONT OFFICE MEDICAL ASSISTANT 01/22/2016 12:00 PM FRONT OFFICE MEDICAL ASSISTANT us Generic Conversion Md [facility] Final R esult [facility] [address] [place] [address], * (ABNORMAL) POCT glucose (01/22/2016 5:53 AM FRONT OFFICE MEDICAL ASSISTANT) GLUCOSE POC 146(H) 70 - 99 mg/dL 01/22/2016 8:27 AM [facility] ORDERS INTERFACE 01/22/2016 5:53 AM FRONT OFFICE MEDICAL ASSISTANT 01/22/2016 8:27 AM FRONT OFFICE MEDICAL ASSISTANT us Generic Conversion Md [facility] POCT ORDERABLES - DEVIC E Final Result [facility] ORDERS INTERFACE US * (ABNORMAL) POCT glucose (01/21/2016 8:43 PM FRONT OFFICE MEDICAL ASSISTANT) GLUCOSE POC 193(H) 70 - 99 mg/dL 01/21/2016 11:42 PM FRONT OFFICE MEDICAL ASSISTANT [facility] ORDERS INTERFACE 01/21/2016 8:43 PM FRONT OFFICE MEDICAL ASSISTANT 01/21/2016 11:42 PM FRONT OFFICE MEDICAL ASSISTANT us Generic Conversion Md [facility] POCT ORDERABLES - DEVIC E Final Result Performing Organization Address City/[facility] Co de Phone Number [facility] ORDERS INTERFACE US * (ABNORMAL) BASIC METABOLIC PANEL (01/21/2016 5:07 PM FRONT OFFICE MEDICAL ASSISTANT) GLUCOSE 239(H) 70 - 99 mg/dL 01/21/2016 7:14 PM [facility] BUN 26(H) 8 - 23 mg/dL 01/21/2016 7:14 PM [facility] CREATININE S/P/B 1.30(H) 0.60 - 1.10 mg/dL 01/21/2016 7:14 PM [facility] SODIUM S/P/B 139 136 - 145 mmol/L 01/21/2016 7:14 PM [facility] POTASSIUM S/P/B 4.4 3.5 - 5.1 mmol/L 01/21/2016 7:14 PM [facility] CHLORIDE S/P/B 101 98 - 107 mmol/L 01/21/2016 7:14 PM [facility] CO2 26 22 - 29 mmol/L 01/21/2016 7:14 PM [facility] CALCIUM S/P/B 8.7 8.6 - 10.2 mg/dL 01/21/2016 7:14 PM [facility] ANION GAP 16 8 - 20 01/21/2016 7:14 PM [facility] EGFR NON-AFR. AMER. 50(L) >60 mL/min/1.7 3m'2 01/21/2016 7:14 PM [facility] EGFR AFR. AMER. 58(L) >60 mL/min/1.7 3m'2 01/21/2016 7:14 PM [facility] Comment: NOTE: eGFR is not calculated for patients <18 years of age. This is an estimated GFR (CKD EPI) and should not be used for calculating drug doses. 01/21/2016 5:07 PM FRONT OFFICE MEDICAL ASSISTANT 01/21/2016 6:08 PM FRONT OFFICE MEDICAL ASSISTANT us Generic Conversion Md [facility] Final R esult Performing Organization Address [facility]/ZIP Co de Phone Number [facility] [address] [place] [address], * (ABNORMAL) POCT glucose (01/21/2016 4:25 PM FRONT OFFICE MEDICAL ASSISTANT) GLUCOSE POC 225(H) 70 - 99 mg/dL 01/21/2016 5:32 PM FRONT OFFICE MEDICAL ASSISTANT [facility] ORDERS INTERFACE 01/21/2016 4:25 PM FRONT OFFICE MEDICAL ASSISTANT 01/21/2016 5:32 PM FRONT OFFICE MEDICAL ASSISTANT us Generic Conversion Md [facility] POCT ORDERABLES - DEVIC E Final Result [facility] ORDERS INTERFACE US * (ABNORMAL) POCT glucose (01/21/2016 12:38 PM FRONT OFFICE MEDICAL ASSISTANT) GLUCOSE POC 242(H) 70 - 99 mg/dL 01/21/2016 1:46 PM FRONT OFFICE MEDICAL ASSISTANT [facility] ORDERS INTERFACE Comment:Will Repeat Test 01/21/2016 12:3 8 PM FRONT OFFICE MEDICAL ASSISTANT 01/21/2016 1:46 PM FRONT OFFICE MEDICAL ASSISTANT us Generic Conversion Md [facility] POCT ORDERABLES - DEVIC E Final Result Performing Organization Address City/State/[facility] Co de Phone Number [facility] ORDERS INTERFACE US * (ABNORMAL) HEPATIC FUNCTION PANEL (01/21/2016 6:14 AM FRONT OFFICE MEDICAL ASSISTANT) BILIRUBIN TOTAL S/P/B 0.3 0.2 - 1.2 mg/dL 01/21/2016 12:45 PM FRONT OFFICE MEDICAL ASSISTANT [facility] ALKALINE PHOSPHATASE S/P/B 110(H) 35 - 104 U/L 01/21/2016 12:45 PM FRONT OFFICE MEDICAL ASSISTANT [facility] AST 20 0 - 32 U/L 01/21/2016 12:45 PM [facility] TOTAL PROTEIN S/P/B 7.8 6.4 - 8.3 g/dL 01/21/2016 12:45 PM [facility] ALBUMIN S/P/B 3.7 3.5 - 5.2 g/dL 01/21/2016 12:45 PM [facility] ALT 18 0 - 33 U/L 01/21/2016 12:45 PM [facility] BILIRUBIN DIRECT S/P/B <0.20 0.0 - 0.3 mg/dL 01/21/2016 12:45 PM [facility] BILIRUBIN INDIRECT S/P/B NOT CALCULATED 0.0 - 0.9 mg/dL 01/21/2016 12:45 PM [facility] GLOBULIN 4.1(H) 2.3 - 3.6 g/dL 01/21/2016 12:45 PM [facility] A/G RATIO 0.9(L) 1.0 - 2.0 01/21/2016 12:45 PM [facility] 01/21/2016 6:14 AM FRONT OFFICE MEDICAL ASSISTANT 01/21/2016 12:30 PM FRONT OFFICE MEDICAL ASSISTANT us Generic Conversion Md [facility] Final R esult [facility] [address] [place] [address], * (ABNORMAL) CBC W/DIFF AUTOMATED (01/21/2016 6:14 AM FRONT OFFICE MEDICAL ASSISTANT) WBC 8.5 4.8 - 10.8 x10'3/uL 01/21/2016 7:52 AM [facility] RBC 3.74(L) 4.20 - 5.40 x10'6/uL 01/21/2016 7:52 AM [facility] HGB 11.6(L) 12.0 - 16.0 G/DL 01/21/2016 7:52 AM [facility] HCT 33.6(L) 38.0 - 48.0 % 01/21/2016 7:52 AM [facility] MCV 89.8 81.0 - 99.0 FL 01/21/2016 7:52 AM [facility] MCH 31.0 27.0 - 31.0 PG 01/21/2016 7:52 AM [facility] MCHC 34.5 32.0 - 36.0 G/DL 01/21/2016 7:52 AM [facility] RDW 12.4 11.5 - 14.5 % 01/21/2016 7:52 AM [facility] PLT 304 130 - 400 x10'3/uL 01/21/2016 7:52 AM [facility] MPV 11.0 9.3 - 12.2 FL 01/21/2016 7:52 AM [facility] IMMATURE GRANS % 0.5 0.0 - 1.0 % 01/21/2016 7:52 AM [facility] NEUTROPHILS % 55.3 43.0 - 65.0 % 01/21/2016 7:52 AM [facility] LYMPHOCYTES % 36.2 20.0 - 46.0 % 01/21/2016 7:52 AM [facility] MONOCYTES % 5.5 5.0 - 12.0 % 01/21/2016 7:52 AM [facility] EOSINOPHILS 1.9 1.0 - 3.0 % 01/21/2016 7:52 AM [facility] BASOPHILS 0.6 0.0 - 1.0 % 01/21/2016 7:52 AM [facility] WHOLE BLOOD SPECIMEN / Unknown 01/21/2016 6:14 AM FRONT OFFICE MEDICAL ASSISTANT 01/21/2016 7:15 AM [facility] us Generic Conversion Md [facility] Final R esult Performing Organization Address City/State/[facility] Co de Phone Number [facility] [address] [place] [address], * (ABNORMAL) BASIC METABOLIC PANEL (01/21/2016 6:14 AM FRONT OFFICE MEDICAL ASSISTANT) GLUCOSE 178(H) 70 - 99 mg/dL 01/21/2016 7:53 AM [facility] BUN 26(H) 8 - 23 mg/dL 01/21/2016 7:53 AM [facility] CREATININE S/P/B 1.34(H) 0.60 - 1.10 mg/dL 01/21/2016 7:53 AM [facility] SODIUM S/P/B 135(L) 136 - 145 mmol/L 01/21/2016 7:53 AM [facility] POTASSIUM S/P/B 4.1 3.5 - 5.1 mmol/L 01/21/2016 7:53 AM [facility] CHLORIDE S/P/B 98 98 - 107 mmol/L 01/21/2016 7:53 AM [facility] CO2 25 22 - 29 mmol/L 01/21/2016 7:53 AM [facility] CALCIUM S/P/B 9.2 8.6 - 10.2 mg/dL 01/21/2016 7:53 AM [facility] ANION GAP 16 8 - 20 01/21/2016 7:53 AM [facility] EGFR NON-AFR. AMER. 48(L) >60 mL/min/1.7 3m'2 01/21/2016 7:53 AM [facility] EGFR AFR. AMER. 56(L) >60 mL/min/1.7 3m'2 01/21/2016 7:53 AM [facility] Comment: NOTE: eGFR is not calculated for patients <18 years of age. This is an estimated GFR (CKD EPI) and should not be used for calculating drug doses. 01/21/2016 6:14 AM FRONT OFFICE MEDICAL ASSISTANT 01/21/2016 7:15 AM FRONT OFFICE MEDICAL ASSISTANT us Generic Conversion Md [facility] Final R esult Performing Organization Address City/[facility] Co de Phone Number [facility] [address] [place] [address], [place] [phone] * (ABNORMAL) POCT glucose (01/21/2016 6:13 AM FRONT OFFICE MEDICAL ASSISTANT) [facility] GLUCOSE POC 166(H) 70 - 99 mg/dL 01/21/2016 8:02 AM FRONT OFFICE MEDICAL ASSISTANT [facility] ORDERS INTERFACE 01/21/2016 6:13 AM FRONT OFFICE MEDICAL ASSISTANT 01/21/2016 8:02 AM FRONT OFFICE MEDICAL ASSISTANT us Generic Conversion Md [facility] POCT ORDERABLES - DEVIC E Final Result Performing Organization Address City/[facility]/ZIP Co de Phone Number [facility] ORDERS INTERFACE US * (ABNORMAL) POCT glucose (01/20/2016 10:05 PM FRONT OFFICE MEDICAL ASSISTANT) GLUCOSE POC 167(H) 70 - 99 mg/dL 01/20/2016 11:27 PM FRONT OFFICE MEDICAL ASSISTANT [facility] ORDERS INTERFACE 01/20/2016 10:0 5 PM FRONT OFFICE MEDICAL ASSISTANT 01/20/2016 11:27 PM FRONT OFFICE MEDICAL ASSISTANT us Generic Conversion Md [facility] POCT ORDERABLES - DEVIC E Final Result Performing Organization Address City/[facility]/ZIP Co de Phone Number [facility] ORDERS INTERFACE US * (ABNORMAL) POCT glucose (01/20/2016 5:22 PM FRONT OFFICE MEDICAL ASSISTANT) GLUCOSE POC 243(H) 70 - 99 mg/dL 01/20/2016 6:25 PM FRONT OFFICE MEDICAL ASSISTANT [facility] ORDERS INTERFACE 01/20/2016 5:22 PM FRONT OFFICE MEDICAL ASSISTANT 01/20/2016 6:25 PM FRONT OFFICE MEDICAL ASSISTANT us Generic Conversion Md [facility] POCT ORDERABLES - DEVIC E Final Result Performing Organization Address [facility] de Phone Number [facility] ORDERS INTERFACE US * (ABNORMAL) URINALYSIS WI REFLEX TO CULTURE (01/20/2016 10:40 AM FRONT OFFICE MEDICAL ASSISTANT) Pathologist [facility] SOURCE (FLUID) URINE CLEAN CATCH 01/20/2016 11:56 AM [facility] COLOR (U) YELLOW 01/20/2016 2:02 PM [facility] TRANSPARENCY CLEAR 01/20/2016 2:02 PM [facility] SPECIFIC GRAVITY (U) 1.013 1.001 - 1.030 01/20/2016 2:02 PM [facility] U PH 9.0 5.0 - 9.0 01/20/2016 2:02 PM [facility] LEUKOCYTES (U) NEGATIVE NEGATIVE 01/20/2016 2:02 PM [facility] NITRITES NEGATIVE NEGATIVE 01/20/2016 2:02 PM [facility] PROTEIN (U) 100(H) <30 MG/DL 01/20/2016 2:02 PM [facility] URINE GLUCOSE NEGATIVE NEGATIVE MG/DL 01/20/2016 2:02 PM [facility] KETONES MG/DL (U) NEGATIVE NEGATIVE MG/DL 01/20/2016 2:02 PM [facility] UROBILINOGEN NEGATIVE NEGATIVE MG/DL 01/20/2016 2:02 PM [facility] BILIRUBIN (U) NEGATIVE NEGATIVE MG/DL 01/20/2016 2:02 PM [facility] BLOOD (U) NEGATIVE NEGATIVE 01/20/2016 2:02 PM [facility] CULTURE & SENSITIVITY INDICATED? CULTURE IS NOT INDICATED 01/20/2016 2:02 PM [facility] SQUAMOUS EPITHELIALS MODERATE /LPF 01/20/2016 2:02 PM [facility] WBC/HPF <1 <6 /HPF 01/20/2016 2:02 PM [facility] RBC/HPF <1 <6 /HPF 01/20/2016 2:02 PM [facility] 01/20/2016 10:4 0 AM FRONT OFFICE MEDICAL ASSISTANT 01/20/2016 12:13 PM FRONT OFFICE MEDICAL ASSISTANT us Generic Conversion Md [facility] URINE ORDERABLES Final Result [facility] [address] [place] [address], [place] [phone] * (ABNORMAL) POCT glucose (01/20/2016 10:35 AM FRONT OFFICE MEDICAL ASSISTANT) GLUCOSE POC 225(H) 70 - 99 mg/dL 01/20/2016 12:03 PM FRONT OFFICE MEDICAL ASSISTANT [facility] ORDERS INTERFACE 01/20/2016 10:3 5 AM FRONT OFFICE MEDICAL ASSISTANT 01/20/2016 12:03 PM FRONT OFFICE MEDICAL ASSISTANT us Generic Conversion Md [facility] POCT ORDERABLES - DEVIC E Final Result [facility] ORDERS INTERFACE US * LIPASE (01/20/2016 6:37 AM FRONT OFFICE MEDICAL ASSISTANT) LIPASE 18 13 - 60 U/L 01/20/2016 6:57 PM FRONT OFFICE MEDICAL ASSISTANT [facility] SERUM OR PLASMA SPECIMEN / Unknown 01/20/2016 6:37 AM FRONT OFFICE MEDICAL ASSISTANT 01/20/2016 6:38 PM FRONT OFFICE MEDICAL ASSISTANT us Generic Conversion Md [facility] Final R esult Performing Organization Address City/[facility]/ZIP Co de Phone Number [facility] [address] [place] [address], * (ABNORMAL) CBC W/DIFF AUTOMATED (01/20/2016 6:37 AM FRONT OFFICE MEDICAL ASSISTANT) WBC 10.9(H) 4.8 - 10.8 x10'3/uL 01/20/2016 8:17 AM [facility] RBC 3.69(L) 4.20 - 5.40 x10'6/uL 01/20/2016 8:17 AM [facility] HGB 11.2(L) 12.0 - 16.0 G/DL 01/20/2016 8:17 AM [facility] HCT 32.9(L) 38.0 - 48.0 % 01/20/2016 8:17 AM [facility] MCV 89.2 81.0 - 99.0 FL 01/20/2016 8:17 AM [facility] MCH 30.4 27.0 - 31.0 PG 01/20/2016 8:17 AM [facility] MCHC 34.0 32.0 - 36.0 G/DL 01/20/2016 8:17 AM [facility] RDW 12.6 11.5 - 14.5 % 01/20/2016 8:17 AM [facility] PLT 299 130 - 400 x10'3/uL 01/20/2016 8:17 AM [facility] MPV 10.8 9.3 - 12.2 FL 01/20/2016 8:17 AM [facility] IMMATURE GRANS % 0.3 0.0 - 1.0 % 01/20/2016 8:17 AM [facility] NEUTROPHILS % 65.6(H) 43.0 - 65.0 % 01/20/2016 8:17 AM [facility] LYMPHOCYTES % 26.7 20.0 - 46.0 % 01/20/2016 8:17 AM [facility] MONOCYTES % 5.3 5.0 - 12.0 % 01/20/2016 8:17 AM [facility] EOSINOPHILS 1.6 1.0 - 3.0 % 01/20/2016 8:17 AM [facility] BASOPHILS 0.5 0.0 - 1.0 % 01/20/2016 8:17 AM [facility] WHOLE BLOOD SPECIMEN / Unknown 01/20/2016 6:37 AM FRONT OFFICE MEDICAL ASSISTANT 01/20/2016 7:40 AM [facility] us Generic Conversion Md [facility] Final R esult [facility] [address] [place] [address], [place] [phone] * (ABNORMAL) BASIC METABOLIC PANEL (01/20/2016 6:37 AM FRONT OFFICE MEDICAL ASSISTANT) GLUCOSE 111(H) 70 - 99 mg/dL 01/20/2016 9:16 AM [facility] BUN 16 8 - 23 mg/dL 01/20/2016 9:16 AM [facility] CREATININE S/P/B 0.80 0.60 - 1.10 mg/dL 01/20/2016 9:16 AM [facility] SODIUM S/P/B 136 136 - 145 mmol/L 01/20/2016 9:16 AM [facility] POTASSIUM S/P/B 3.7 3.5 - 5.1 mmol/L 01/20/2016 9:16 AM [facility] CHLORIDE S/P/B 99 98 - 107 mmol/L 01/20/2016 9:16 AM [facility] CO2 24 22 - 29 mmol/L 01/20/2016 9:16 AM [facility] CALCIUM S/P/B 9.4 8.6 - 10.2 mg/dL 01/20/2016 9:16 AM [facility] ANION GAP 17 8 - 20 01/20/2016 9:16 AM [facility] EGFR NON-AFR. AMER. >60 >60 mL/min/1.7 3m'2 01/20/2016 9:16 AM [facility] EGFR AFR. AMER. >60 >60 mL/min/1.7 '2 01/20/2016 9:16 AM [facility] Comment: NOTE: eGFR is not calculated for patients <18 years of age. This is an estimated GFR (CKD EPI) and should not be used for calculating drug doses. 01/20/2016 6:37 AM FRONT OFFICE MEDICAL ASSISTANT 01/20/2016 7:40 AM FRONT OFFICE MEDICAL ASSISTANT us Generic Conversion Md [facility] Final R esult [facility] [address] [place] [address], * (ABNORMAL) POCT glucose (01/20/2016 6:00 AM FRONT OFFICE MEDICAL ASSISTANT) GLUCOSE POC 112(H) 70 - 99 mg/dL 01/20/2016 7:03 AM FRONT OFFICE MEDICAL ASSISTANT [facility] ORDERS INTERFACE 01/20/2016 6:00 AM FRONT OFFICE MEDICAL ASSISTANT 01/20/2016 7:03 AM FRONT OFFICE MEDICAL ASSISTANT us Generic Conversion Md [facility] POCT ORDERABLES - DEVIC E Final Result Performing Organization Address [facility] Co de Phone Number [facility] ORDERS INTERFACE US * (ABNORMAL) POCT glucose (01/20/2016 4:27 AM FRONT OFFICE MEDICAL ASSISTANT) GLUCOSE POC 122(H) 70 - 99 mg/dL 01/20/2016 7:04 AM FRONT OFFICE MEDICAL ASSISTANT [facility] ORDERS INTERFACE 01/20/2016 4:27 AM FRONT OFFICE MEDICAL ASSISTANT 01/20/2016 7:04 AM FRONT OFFICE MEDICAL ASSISTANT us Generic Conversion Md RYDER POCT ORDERABLES - DEVIC E Final Result Performing Organization Address [facility] de Phone Number [facility] ORDERS INTERFACE US * (ABNORMAL) POCT glucose (01/19/2016 9:29 PM FRONT OFFICE MEDICAL ASSISTANT) GLUCOSE POC 203(H) 70 - 99 mg/dL 01/20/2016 1:15 AM FRONT OFFICE MEDICAL ASSISTANT [facility] ORDERS INTERFACE 01/19/2016 9:29 PM FRONT OFFICE MEDICAL ASSISTANT 01/20/2016 1:15 AM FRONT OFFICE MEDICAL ASSISTANT us Generic Conversion Md RYDER POCT ORDERABLES - DEVIC E Final Result Performing Organization Address [facility] Co de Phone Number [facility] ORDERS INTERFACE US * (ABNORMAL) POCT glucose (01/19/2016 5:41 PM FRONT OFFICE MEDICAL ASSISTANT) GLUCOSE POC 233(H) 70 - 99 mg/dL 01/19/2016 7:33 PM FRONT OFFICE MEDICAL ASSISTANT [facility] ORDERS INTERFACE Comment:Glycemic MGT Protoco l 01/19/2016 5:41 PM FRONT OFFICE MEDICAL ASSISTANT 01/19/2016 7:32 PM FRONT OFFICE MEDICAL ASSISTANT us Generic Conversion Md RYDER POCT ORDERABLES - DEVIC E Final Result [facility] ORDERS INTERFACE US * (ABNORMAL) POCT glucose (01/19/2016 12:58 PM FRONT OFFICE MEDICAL ASSISTANT) GLUCOSE POC 226(H) 70 - 99 mg/dL 01/19/2016 2:01 PM FRONT OFFICE MEDICAL ASSISTANT [facility] ORDERS INTERFACE 01/19/2016 12:5 8 PM FRONT OFFICE MEDICAL ASSISTANT 01/19/2016 2:01 PM FRONT OFFICE MEDICAL ASSISTANT us Generic Conversion Md RYDER POCT ORDERABLES - DEVIC E Final Result Performing Organization Address [facility] Co de Phone Number [facility] ORDERS INTERFACE US * PROTIME/INR, VENOUS (01/19/2016 11:50 AM FRONT OFFICE MEDICAL ASSISTANT) PROTIME 11.4 9.6 - 12.2 SEC 01/19/2016 1:35 PM FRONT OFFICE MEDICAL ASSISTANT [facility] INR 1.0 01/19/2016 1:35 PM FRONT OFFICE MEDICAL ASSISTANT [facility] Comment: Recommended INR Therapeutic Goals: ??2.0-3.0 Routine Therapy ??2.5-3.5 Mechanical Prosthetic Valves (High Risk) ??3.0-4.0 Acute PA (to prevent Systemic Embolism) The INR is used only for patients on stable oral anticoagulant therapy. It makes no significant contribution to the diagnosis or treatment of patients whose Protime is prolonged for other reasons. 01/19/2016 11:5 0 AM FRONT OFFICE MEDICAL ASSISTANT 01/19/2016 1:03 PM FRONT OFFICE MEDICAL ASSISTANT us Generic Conversion Md [facility]AT[facility] Final R esult Performing Organization Address [facility] Co de Phone Number [facility] [address] [id number], [place] [phone] * (ABNORMAL) COMPREHENSIVE METABOLIC PANEL (01/19/2016 11:50 AM FRONT OFFICE MEDICAL ASSISTANT) GLUCOSE 214(H) 70 - 99 mg/dL 01/19/2016 1:49 PM [facility] BUN 15 8 - 23 mg/dL 01/19/2016 1:49 PM [facility] CREATININE S/P/B 0.59(L) 0.60 - 1.10 mg/dL 01/19/2016 1:49 PM [facility] SODIUM S/P/B 138 136 - 145 mmol/L 01/19/2016 1:49 PM [facility] POTASSIUM S/P/B 4.5 3.5 - 5.1 mmol/L 01/19/2016 1:49 PM [facility] CHLORIDE S/P/B 98 98 - 107 mmol/L 01/19/2016 1:49 PM [facility] CO2 27 22 - 29 mmol/L 01/19/2016 1:49 PM [facility] BILIRUBIN TOTAL S/P/B 0.3 0.2 - 1.2 mg/dL 01/19/2016 1:49 PM [facility] CALCIUM S/P/B 9.5 8.6 - 10.2 mg/dL 01/19/2016 1:49 PM [facility] ALKALINE PHOSPHATASE S/P/B 116(H) 35 - 104 U/L 01/19/2016 1:49 PM [facility] AST 15 0 - 32 U/L 01/19/2016 1:49 PM [facility] TOTAL PROTEIN S/P/B 8.3 6.4 - 8.3 g/dL 01/19/2016 1:49 PM [facility] ALBUMIN S/P/B 3.8 3.5 - 5.2 g/dL 01/19/2016 1:49 PM [facility] ALT 21 0 - 33 U/L 01/19/2016 1:49 PM [facility] GLOBULIN 4.5(H) 2.3 - 3.6 g/dL 01/19/2016 1:49 PM [facility] A/G RATIO 0.8(L) 1.0 - 2.0 01/19/2016 1:49 PM [facility] ANION GAP 18 8 - 20 01/19/2016 1:49 PM [facility] EGFR NON-AFR. AMER. >60 >60 mL/min/1.7 3m'2 01/19/2016 1:49 PM [facility] EGFR AFR. AMER. >60 >60 mL/min/1.7 3m'2 01/19/2016 1:49 PM [facility] Comment: NOTE: eGFR is not calculated for patients <18 years of age. This is an estimated GFR (CKD EPI) and should not be used for calculating drug doses. 01/19/2016 11:5 0 AM FRONT OFFICE MEDICAL ASSISTANT 01/19/2016 1:03 PM FRONT OFFICE MEDICAL ASSISTANT us Generic Conversion Md [facility] Final R esult [facility] [address] [place] [address], * (ABNORMAL) CBC W/DIFF AUTOMATED (01/19/2016 11:50 AM FRONT OFFICE MEDICAL ASSISTANT) WBC 10.9(H) 4.8 - 10.8 x10'3/uL 01/19/2016 1:14 PM [facility] RBC 3.95(L) 4.20 - 5.40 x10'6/uL 01/19/2016 1:14 PM [facility] HGB 12.0 12.0 - 16.0 G/DL 01/19/2016 1:14 PM [facility] HCT 35.0(L) 38.0 - 48.0 % 01/19/2016 1:14 PM [facility] MCV 88.6 81.0 - 99.0 FL 01/19/2016 1:14 PM [facility] MCH 30.4 27.0 - 31.0 PG 01/19/2016 1:14 PM [facility] MCHC 34.3 32.0 - 36.0 G/DL 01/19/2016 1:14 PM [facility] RDW 12.2 11.5 - 14.5 % 01/19/2016 1:14 PM [facility] PLT 284 130 - 400 x10'3/uL 01/19/2016 1:14 PM [facility] MPV 11.0 9.3 - 12.2 FL 01/19/2016 1:14 PM [facility] IMMATURE GRANS % 0.2 0.0 - 1.0 % 01/19/2016 1:14 PM [facility] NEUTROPHILS % 78.6(H) 43.0 - 65.0 % 01/19/2016 1:14 PM [facility] LYMPHOCYTES % 16.4(L) 20.0 - 46.0 % 01/19/2016 1:14 PM [facility] MONOCYTES % 3.5(L) 5.0 - 12.0 % 01/19/2016 1:14 PM [facility] EOSINOPHILS 0.9(L) 1.0 - 3.0 % 01/19/2016 1:14 PM [facility] BASOPHILS 0.4 0.0 - 1.0 % 01/19/2016 1:14 PM [facility] WHOLE BLOOD SPECIMEN / Unknown 01/19/2016 11:50 AM FRONT OFFICE MEDICAL ASSISTANT 01/19/2016 1:03 PM FRONT OFFICE MEDICAL ASSISTANT us Generic Conversion Md [facility] Final R esult [facility] [address] [place] [address], documented in this encounter Visit Diagnoses Diagnosis Acute kidney failure (CMS/HCC) Acute kidney failure, unspecified documented in this encounter Care Teams Director Client Services Relationship Specialty Start Date End Date Jarred Rod MD PCP - General FAMILY PRACTICE 07/21/15 09/30/20 Crispin Gomez MD [facility]. [id number] [place] [address] [place] Guard Rail Installer INTERNAL MEDICINE 07/21/15 documented as of this encounter
--- OUTSIDE RECORDS SUMMARY | 2024-03-03 01:32 | XMS_ITS | Encounter Summary ---
Author Organization [facility] Address [address] [place] [address]. [place], [place] [address] [place] [address] Care Team Providers Care Customer Service Administrator Name Role Phone Jarred Rod MD Primary Care Provider Unav ailable Shira Shi PA-C Primary Care Provider [phone]- [phone] Jarred Rod MD Primary Care Provider Unav [...] No / Unsure 01/24/2021 11:10 AM LEAD TRAINER documented as of this encounter Functional Status [...] Contact Info) Description 03/14/2024 11:45 AM LEAD TRAINER Office Visit [facility] [address] Marvin Mckeon MD Three [facility] [address] [place] [address] [phone] 03/20/2024 11:30 AM LEAD TRAINER Office Visit [facility] Family Medicine - [address] [address] Abiodun Segura II, MD [address] [place] [address] [phone] documented as of this encounter Visit Diagnoses Not on filedocumented in this encounter Additional Health Concerns Infection Onset Date Last Indicated Resolved Time COVID-19 Rule Out 09/22/2019 09/22/2019 09/24/2019 11:13 PM CDT COVID-19 Rule Out 11/02/2019 11/02/2019 11/03/2019 3:22 PM CDT COVID-19 Rule Out 12/13/2019 12/13/2019 12/14/2019 3:06 PM CDT COVID-19 Confirmed 12/13/2019 12/13/2019 0 12:34 AM LEAD TRAINER documented as of this encounter Care Teams Customer Service Administrator Relationship Specialty Start Date End Date Jarred Rod MD PCP - General FAMILY PRACTICE 07/21/15 09/30/20 Shira Shi, JESUSC [address] [place] [address] PCP - General PHYSICIAN TRENCH PIPE LAYER HELPER 10/01/20 11/17/20 Jarred Rod MD [address] [place] [address] PCP - General FAMILY PRACTICE 11/18/20 12/05/20 Abiodun Segura II, MD [address] [place] [address] PCP - General FAMILY PRACTICE 12/06/20 01/16/21 Jarred Rod MD [address] [place] [address] PCP - General FAMILY PRACTICE 01/17/21 03/08/21 documented as of this encounter
--- OUTSIDE RECORDS SUMMARY | 2024-03-03 01:32 | XMS_ITS | Encounter Summary ---
Author Organization [facility] Address [address] [place] [address]. [place], [place] [address] [place] [address] Care Team Providers Care Senior Controls Technician Name Role Phone Jarred Rod MD Primary Care Provider Unav ailable Crispin Gomez MD Unavailable [phone] Shira Shi PA-C Primary Care Provider [phone]- [phone] Jarred Rod MD Primary Care Provider Unav [...] COVID-19? No / Unsure 01/24/2021 11:10 AM SCIENTIFIC ADVISOR documented as of this encounter Functional Status [...] Contact Info) Description 03/14/2024 11:45 AM SCIENTIFIC ADVISOR Office Visit [facility] [address] Marvin Mckeon MD [facility] [address] [place] [address] [phone] 03/20/2024 11:30 AM SCIENTIFIC ADVISOR Office Visit [facility] Family Medicine - [address] [phone] Abiodun Segura II, MD [address] [place] [address] [phone] documented as of this encounter Visit Diagnoses Not on filedocumented in this encounter Additional Health Concerns Infection Onset Date Last Indicated Resolved Time COVID-19 Rule Out 09/22/2019 09/22/2019 09/24/2019 11:13 PM CDT COVID-19 Rule Out 11/02/2019 11/02/2019 11/03/2019 3:22 PM CDT COVID-19 Rule Out 12/13/2019 12/13/2019 12/14/2019 3:06 PM CDT COVID-19 Confirmed 12/13/2019 12/13/2019 0 12:34 AM SCIENTIFIC ADVISOR documented as of this encounter Care Teams Senior Controls Technician Relationship Specialty Start Date End Date Jarred Rod MD PCP - General FAMILY PRACTICE 07/21/15 09/30/20 Shira Shi PA-C [address] [place] [address] PCP - General PHYSICIAN CLINICAL NUTRITIONIST 10/01/20 11/17/20 Jarred Rod MD [address] [place] [address] PCP - General FAMILY PRACTICE 11/18/20 12/05/20 Abiodun Segura II, MD [address] [place] [address] PCP - General FAMILY PRACTICE 12/06/20 01/16/21 Jarred Rod MD [address] [place] [address] PCP - General FAMILY PRACTICE 01/17/21 03/08/21 Crispin Gomez MD [facility] [address] [place] [address] [place] Operational Intelligence Analyst INTERNAL MEDICINE 07/21/15 documented as of this encounter
--- OUTSIDE RECORDS SUMMARY | 2024-03-03 01:32 | XMS_ITS | Encounter Summary ---
Author Organization [facility] Address [address] [place] [address]. [place], [place] [phone] [place] [address] Care Team Providers Care Contracting Manager Name Role Phone Jarred Rod MD Primary Care Provider Unav ailable Shira Shi PA-C Primary Care Provider [phone]- [phone] Jarred Rod MD Primary Care Provider Unav [...] COVID-19? No / Unsure 01/24/2021 11:10 AM CUSTOMER SUCCESS MANAGER documented as of this encounter Functional [...] Info) Description 03/14/2024 11:45 AM CUSTOMER SUCCESS MANAGER Office Visit [facility] [address] Marvin Mckeon MD Three [facility] [address] [place] [address] [phone] 03/20/2024 11:30 AM CUSTOMER SUCCESS MANAGER Office Visit [facility] Family Medicine - [address] [address] Abiodun Segura II, MD [address] [place] [address] [phone] documented as of this encounter Visit Diagnoses Not on filedocumented in this encounter Additional Health Concerns Infection Onset Date Last Indicated Resolved Time COVID-19 Rule Out 09/22/2019 09/22/2019 09/24/2019 11:13 PM CDT COVID-19 Rule Out 11/02/2019 11/02/2019 11/03/2019 3:22 PM CDT COVID-19 Rule Out 12/13/2019 12/13/2019 12/14/2019 3:06 PM CDT COVID-19 Confirmed 12/13/2019 12/13/2019 0 12:34 AM CUSTOMER SUCCESS MANAGER documented as of this encounter Care Teams Contracting Manager Relationship Specialty Start Date End Date Jarred Rod MD PCP - General FAMILY PRACTICE 07/21/15 09/30/20 Shira Shi, JESUSC [address] [place] [address] PCP - General PHYSICIAN DIGITAL DESIGNER 10/01/20 11/17/20 Jarred Rod MD [address] [place] [address] PCP - General FAMILY PRACTICE 11/18/20 12/05/20 Abiodun Segura II, MD [address] [place] [address] PCP - General FAMILY PRACTICE 12/06/20 01/16/21 Jarerd Rod MD [address] [place] [address] PCP - General FAMILY PRACTICE 01/17/21 03/08/21 documented as of this encounter
--- OUTSIDE RECORDS SUMMARY | 2024-03-03 01:32 | XMS_ITS | Encounter Summary ---
Author Organization [facility] Address [address] [place] [address]. [place], [place] [address] [place] [address] Care Team Providers Care Presser Hand Name Role Phone Jarred Rod MD Primary Care Provider Unav ailable Crispin Gomez MD Unavailable [phone] Shira Shi PA-C Primary Care Provider [phone]- [phone] Jarred Rod MD Primary Care Provider Unav [...] COVID-19? No / Unsure 01/24/2021 11:10 AM COLLECTIONS MANAGER documented as of this encounter Functional [...] Contact Info) Description 03/14/2024 11:45 AM COLLECTIONS MANAGER Office Visit [facility] [address] Marvin Mckeon MD [facility] [address] [place] [phone] 03/20/2024 11:30 AM COLLECTIONS MANAGER Office Visit [facility] Family Medicine - [address] [phone] Abiodun Segura II, MD [address] [place] [address] [phone] documented as of this encounter Visit Diagnoses Not on filedocumented in this encounter Additional Health Concerns Infection Onset Date Last Indicated Resolved Time COVID-19 Rule Out 09/22/2019 09/22/2019 09/24/2019 11:13 PM CDT COVID-19 Rule Out 11/02/2019 11/02/2019 11/03/2019 3:22 PM CDT COVID-19 Rule Out 12/13/2019 12/13/2019 12/14/2019 3:06 PM CDT COVID-19 Confirmed 12/13/2019 12/13/2019 0 12:34 AM COLLECTIONS MANAGER documented as of this encounter Care Teams Presser Hand Relationship Specialty Start Date End Date Jarred Rod MD PCP - General FAMILY PRACTICE 07/21/15 09/30/20 Shira Shi PA-C [address] [place] [address] PCP - General PHYSICIAN TESTER OPERATOR HELPER 10/01/20 11/17/20 Jarred Rod MD [address] [place] [address] PCP - General FAMILY PRACTICE 11/18/20 12/05/20 Abiodun Segura II, MD [address] [place] [address] PCP - General FAMILY PRACTICE 12/06/20 01/16/21 Jarred Rod MD [address] [place] [address] PCP - General FAMILY PRACTICE 01/17/21 03/08/21 Crispin Gomez MD [facility] [address] [place] [address] Mcintosh Buttonhole Tacker INTERNAL MEDICINE 07/21/15 documented as of this encounter
--- OUTSIDE RECORDS SUMMARY | 2024-03-03 01:32 | XMS_ITS | Encounter Summary ---
Author Organization [facility] Address [address] [place] [address]. [place], [place] [phone] [place] [address] Care Team Providers Care Medical Donation Professional Name Role Phone Jarred Rod MD Primary Care Provider Unav ailable Shira Shi PA-C Primary Care Provider [phone] Jarred Rod MD Primary Care Provider Unav [...] COVID-19? No / Unsure 01/24/2021 11:10 AM PRACTICAL NURSING TEACHER documented as of this encounter Functional [...] st Contact Info) Description 03/14/2024 11:45 AM PRACTICAL NURSING TEACHER Office Visit [facility] [address] Marvin Mckeon MD Three [facility] [address] [place] [phone] 03/20/2024 11:30 AM PRACTICAL NURSING TEACHER Office Visit [facility] Family Medicine - [address] [address] Abiodun Segura II, MD [address] [place] [address] [phone] documented as of this encounter Visit Diagnoses Not on filedocumented in this encounter Additional Health Concerns Infection Onset Date Last Indicated Resolved Time COVID-19 Rule Out 09/22/2019 09/22/2019 09/24/2019 11:13 PM CDT COVID-19 Rule Out 11/02/2019 11/02/2019 11/03/2019 3:22 PM CDT COVID-19 Rule Out 12/13/2019 12/13/2019 12/14/2019 3:06 PM CDT COVID-19 Confirmed 12/13/2019 12/13/2019 0 12:34 AM PRACTICAL NURSING TEACHER documented as of this encounter Care Teams Medical Donation Professional Relationship Specialty Start Date End Date Jarred Rod MD PCP - General FAMILY PRACTICE 07/21/15 09/30/20 Shira Shi, JESUSC [address] [place] [address] PCP - General PHYSICIAN CONSTRUCTION GRIP 10/01/20 11/17/20 Jarred Rod MD [address] [place] [address] PCP - General FAMILY PRACTICE 11/18/20 12/05/20 Abiodun Segura II, MD [address] [place] [address] PCP - General FAMILY PRACTICE 12/06/20 01/16/21 Jarred Rod MD [address] [place] [address] PCP - General FAMILY PRACTICE 01/17/21 03/08/21 documented as of this encounter
--- OUTSIDE RECORDS SUMMARY | 2024-03-03 01:33 | XMS_ITS | Encounter Summary ---
Author Organization [facility] Address [address] [place] [address]. [place] [address] [place] [address] Care Team Providers Care Machine Chain Maker Name Role Phone Jarred Rod MD Primary Care Provider Unav ailable Crispin Gomez MD Unavailable [phone] Jarred Rod MD Primary Care Provider Unav ailJarred Hayden MD Primary Care Provider Unav ailable Jarred Rod MD Primary Care Provider Unav ailable Jarred Rod MD Primary Care Provider Unav ailable Encounter Details Date Type Department Care Team (Late st Contact Info) Description 05/06/1993 Abstract [place] [address] , Generic Conversion, Social History [...] Contact Info) Description 03/14/2024 11:45 AM CABLE SPLICING TECHNICIAN Office Visit [facility] [phone] Marvin Mckeon MD Three [facility] [address] [place] [address] 03/20/2024 11:30 AM CABLE SPLICING TECHNICIAN Office Visit [facility] Family Medicine - [place] [address] [place] [phone] Abiodun Segura II, MD [address] [place] [address] documented as of this encounter Visit Diagnoses Not on filedocumented in this encounter Care Teams Machine Chain Maker Relationship Specialty Start Date End Date Jarred Rod MD PCP - General FAMILY PRACTICE 07/21/15 09/30/20 Jarred Rod MD PCP - General 05/05/14 07/20/15 Jarred Rod MD PCP - General 03/03/13 05/04/14 Jarred Rod MD PCP - General 12/02/12 03/02/13 Jarred Rod MD PCP - General 11/07/12 12/01/12 Crispin Gomez MD [facility] [address] [place] [address] [place] Travel Coordinator INTERNAL MEDICINE 07/21/15 documented as of this encounter
--- OUTSIDE RECORDS SUMMARY | 2024-03-03 01:33 | XMS_ITS | Encounter Summary ---
Author Organization [facility] Address [address] [place] [address]. [place] [address] [place] [address] Care Team Providers Care Electrician Third Name Role Phone Jarred Rod MD Primary Care Provider Unav ailable Crispin Gomez MD Unavailable [phone] Jarred Rod MD Primary Care Provider Unav ailJarred Hayden MD Primary Care Provider Unav ailable Jarred Rod MD Primary Care Provider Unav ailable Jarred Rod MD Primary Care Provider Unav ailable Encounter Details Date Type Department Care Team (Late st Contact Info) Description 05/14/2006 Abstract [facility] [place], [place] [phone] Giacomo Galaviz MD Social History Tobacco Use [...] st Contact Info) Description 03/14/2024 11:45 AM TOE SEWER Office Visit [facility] [address] Marvin Mckeon MD [address] [facility] [address] [place] [address] 03/20/2024 11:30 AM TOE SEWER Office Visit [facility] Family Medicine - [place] [address] [place] [phone] Abiodun Segura II, MD [address] [place] [address] documented as of this encounter Visit Diagnoses Not on filedocumented in this encounter Care Teams Electrician Third Relationship Specialty Start Date End Date Jarred Rod MD PCP - General FAMILY PRACTICE 07/21/15 09/30/20 Jarred Rod MD PCP - General 05/05/14 07/20/15 Jarred Rod MD PCP - General 03/03/13 05/04/14 Jarred Rod MD PCP - General 12/02/12 03/02/13 Jarred Rod MD PCP - General 11/07/12 12/01/12 Crispin [facility]note 3][address] [place] [address] [place] Car Rental Agent INTERNAL MEDICINE 07/21/15 documented as of this encounter
--- OUTSIDE RECORDS SUMMARY | 2024-03-03 01:33 | XMS_ITS | Encounter Summary ---
Author Organization [facility] Address [address] [place] [address]. [place] [address] [place] [address] Care Team Providers Care Pilot Plant Research Technician Name Role Phone Jarred Rod MD Primary Care Provider UnaCrispin Myers MD Unavailable [phone] Encounter Details Date Type Department Care Team (Late st Contact Info) Description 01/17/2016 Abstract [facility] [place] [address] Joel Santiago MD [address] [place] [address] [id number] Social History Tobacco Use Types Packs/Day Years [...] st Contact Info) Description 03/14/2024 11:45 AM UNDERCAR SPECIALIST Office Visit [facility] [address] Marvin Mckeon MD Three [facility] [address] [place] [address] 03/20/2024 11:30 AM UNDERCAR SPECIALIST Office Visit [facility] Family Medicine - [place] 100 [place] [phone] Abiodun Segura II, MD 100 [place] [address] documented as of this encounter Procedures Procedure Name Priority Date/Time Associated Diagnosis Comments BASIC METABOLIC PANEL Routine 01/17/2016 6:51 PM UNDERCAR SPECIALIST CBC W/DIFF AUTOMATED Routine 01/17/2016 6:51 PM UNDERCAR SPECIALIST CKMB(MB FRACTION ONLY) TIMED 01/17/2016 3:30 PM UNDERCAR SPECIALIST TROPONIN, QUANT TIMED 01/17/2016 3:30 PM UNDERCAR SPECIALIST CK (CPK) STAT 01/17/2016 3:30 PM UNDERCAR SPECIALIST POCT GLUCOSE - CORREA DOCKED DEVICE Routine 01/17/2016 12:28 PM UNDERCAR SPECIALIST CKMB(MB FRACTION ONLY) STAT 01/17/2016 10:57 AM UNDERCAR SPECIALIST TROPONIN, QUANT STAT 01/17/2016 10:57 AM UNDERCAR SPECIALIST CK (CPK) STAT 01/17/2016 10:57 AM UNDERCAR SPECIALIST POCT GLUCOSE - CORREA DOCKED DEVICE Routine 01/17/2016 9:45 AM UNDERCAR SPECIALIST POCT GLUCOSE - CORREA DOCKED DEVICE Routine 01/17/2016 7:42 AM UNDERCAR SPECIALIST BASIC METABOLIC PANEL STAT 01/17/2016 6:57 AM UNDERCAR SPECIALIST documented in this encounter Results * (ABNORMAL) CBC W/DIFF AUTOMATED (01/17/2016 6:51 PM [facility]) WBC 10.3 4.8 - 10.8 x10'3/uL 01/17/2016 8:[address] [facility] RBC 3.63(L) 4.20 - 5.40 x10'6/uL 01/17/2016 8:[address] [facility] HGB 11.2(L) 12.0 - 16.0 G/DL 01/17/2016 8:[address] [facility] HCT 32.3(L) 38.0 - 48.0 % 01/17/2016 8:[address] [facility] MCV 89.0 81.0 - 99.0 FL 01/17/2016 8:[address] [facility] MCH 30.9 27.0 - 31.0 PG 01/17/2016 8:[address] [facility] MCHC 34.7 32.0 - 36.0 G/DL 01/17/2016 8:[address] [facility] RDW 12.7 11.5 - 14.5 % 01/17/2016 8:[address] [facility] PLT 267 130 - 400 x10'3/uL 01/17/2016 8:[address] [facility] MPV 11.0 9.3 - 12.2 FL 01/17/2016 8:[address] [facility] IMMATURE GRANS % 0.2 0.0 - 1.0 % 01/17/2016 8:[address] [facility] NEUTROPHILS % 60.5 43.0 - 65.0 % 01/17/2016 8:[address] [facility] LYMPHOCYTES % 32.7 20.0 - 46.0 % 01/17/2016 8:[address] [facility] MONOCYTES % 5.2 5.0 - 12.0 % 01/17/2016 8:38 PM UNDERCAR SPECIALIST [facility] EOSINOPHILS 0.9(L) 1.0 - 3.0 % 01/17/2016 8:[address] [facility] BASOPHILS 0.5 0.0 - 1.0 % 01/17/2016 8:[address] [facility] WHOLE BLOOD SPECIMEN / Unknown 01/17/2016 6:51 PM UNDERCAR SPECIALIST 01/17/2016 7:52 PM UNDERCAR SPECIALIST us Generic Conversion Md [facility] Final R esult [facility] [address] [place] [address], [place] [phone] * (ABNORMAL) BASIC METABOLIC PANEL (01/17/2016 6:51 PM UNDERCAR SPECIALIST) GLUCOSE 177(H) 70 - 99 mg/dL 01/17/2016 8:[address] [facility] BUN 26(H) 8 - 23 mg/dL 01/17/2016 8:[address] [facility] CREATININE S/P/B 0.94 0.60 - 1.10 mg/dL 01/17/2016 8:[address] [facility] SODIUM S/P/B 135(L) 136 - 145 mmol/L 01/17/2016 8:[address] [facility] POTASSIUM S/P/B 4.2 3.5 - 5.1 mmol/L 01/17/2016 8:[address] [facility] CHLORIDE S/P/B 99 98 - 107 mmol/L 01/17/2016 8:[address] [facility] CO2 24 22 - 29 mmol/L 01/17/2016 8:[address] [facility] CALCIUM S/P/B 9.0 8.6 - 10.2 mg/dL 01/17/2016 8:18 PM UNDERCAR SPECIALIST [facility] ANION GAP 16 8 - 20 01/17/2016 8:[address] [facility] EGFR NON-AFR. AMER. >60 >60 mL/min/1.7 3m'2 01/17/2016 8:[address] [facility] EGFR AFR. AMER. >60 >60 mL/min/1.7 3m'2 01/17/2016 8:[address] [facility] Comment: NOTE: eGFR is not calculated for patients <18 years of age. This is an estimated GFR (CKD EPI) and should not be used for calculating drug doses. 01/17/2016 6:51 PM UNDERCAR SPECIALIST 01/17/2016 7:52 PM UNDERCAR SPECIALIST us Generic Conversion Md [facility] Final R esult [facility] [address] [place] [address], * TROPONIN, QUANT (01/17/2016 3:30 PM UNDERCAR SPECIALIST) TROPONIN I <0.30 <0.30 ng/mL 01/17/2016 5:23 PM UNDERCAR SPECIALIST [facility] SERUM OR PLASMA SPECIMEN / Unknown 01/17/2016 3:30 PM UNDERCAR SPECIALIST 01/17/2016 4:34 PM UNDERCAR SPECIALIST us Generic Conversion Md [facility] Final R esult Performing Organization Address City/[facility]/ZIP Co de Phone Number [facility] [address] [place] [address], [place] [phone] * CKMB(MB FRACTION ONLY) (01/17/2016 3:30 PM UNDERCAR SPECIALIST) CK-MB 2.09 <4.30 ng/mL 01/17/2016 5:23 PM UNDERCAR SPECIALIST [facility] SERUM OR PLASMA SPECIMEN / Unknown 01/17/2016 3:30 PM UNDERCAR SPECIALIST 01/17/2016 4:34 PM UNDERCAR SPECIALIST us Generic Conversion Md [facility] Final R esult Performing Organization Address [facility] Co de Phone Number [facility] [address] [place] [address], [place] [phone] * CK (CPK) (01/17/2016 3:30 PM UNDERCAR SPECIALIST) CPK 141 26 - 192 U/L 01/17/2016 5:24 PM UNDERCAR SPECIALIST [facility] SERUM OR PLASMA SPECIMEN / Unknown 01/17/2016 3:30 PM UNDERCAR SPECIALIST 01/17/2016 4:34 PM UNDERCAR SPECIALIST us Generic Conversion Md [facility] Final R esult Performing Organization Address [facility] Co de Phone Number [facility] [address] [place] [address], [place] [phone] * (ABNORMAL) POCT glucose (01/17/2016 12:28 PM UNDERCAR SPECIALIST) GLUCOSE POC 113(H) 70 - 99 mg/dL 01/17/2016 2:20 PM UNDERCAR SPECIALIST [facility] ORDERS INTERFACE 01/17/2016 12:2 8 PM UNDERCAR SPECIALIST 01/17/2016 2:20 PM UNDERCAR SPECIALIST us Generic Conversion Md [facility] POCT ORDERABLES - DEVIC E Final Result Performing Organization Address [facility] Co de Phone Number [facility] ORDERS INTERFACE US * CK (CPK) (01/17/2016 10:57 AM UNDERCAR SPECIALIST) CPK 151 26 - 192 U/L 01/17/2016 12:59 PM UNDERCAR SPECIALIST [facility] SERUM OR PLASMA SPECIMEN / Unknown 01/17/2016 10:57 AM UNDERCAR SPECIALIST 01/17/2016 12:03 PM UNDERCAR SPECIALIST Generic Conversion Md [facility] Final R esnas Performing Organization Address [facility]/ZIP Co de Phone Number [facility] [address] [place] [address], * TROPONIN, QUANT (01/17/2016 10:57 AM UNDERCAR SPECIALIST) TROPONIN I <0.30 <0.30 ng/mL 01/17/2016 12:42 PM UNDERCAR SPECIALIST [facility] SERUM OR PLASMA SPECIMEN / Unknown 01/17/2016 10:57 AM UNDERCAR SPECIALIST 01/17/2016 12:03 PM UNDERCAR SPECIALIST Generic Conversion Md [facility] Final R esnas Performing Organization Address [facility]/ZIP Co de Phone Number [facility] [address] [place] [address], * CKMB(MB FRACTION ONLY) (01/17/2016 10:57 AM UNDERCAR SPECIALIST) CK-MB 2.31 <4.30 ng/mL 01/17/2016 12:42 PM UNDERCAR SPECIALIST [facility] SERUM OR PLASMA SPECIMEN / Unknown 01/17/2016 10:57 AM UNDERCAR SPECIALIST 01/17/2016 12:03 PM UNDERCAR SPECIALIST Generic Klaudia [facility] MD LABORATORY Final R charley Performing Organization Address [facility]/ZIP Co de Phone Number [facility] [address] [place] [address], * (ABNORMAL) POCT glucose (01/17/2016 9:45 AM UNDERCAR SPECIALIST) GLUCOSE POC 161(H) 70 - 99 mg/dL 01/17/2016 10:47 AM UNDERCAR SPECIALIST [facility] ORDERS INTERFACE 01/17/2016 9:45 AM UNDERCAR SPECIALIST 01/17/2016 10:46 AM UNDERCAR SPECIALIST us Generic Conversion Md [facility] POCT ORDERABLES - DEVIC E Final Result [facility] ORDERS INTERFACE US * (ABNORMAL) POCT glucose (01/17/2016 7:42 AM UNDERCAR SPECIALIST) GLUCOSE POC 243(H) 70 - 99 mg/dL 01/17/2016 8:45 AM UNDERCAR SPECIALIST [facility] ORDERS INTERFACE 01/17/2016 7:42 AM UNDERCAR SPECIALIST 01/17/2016 8:45 AM UNDERCAR SPECIALIST us Generic Conversion Md [facility] POCT ORDERABLES - DEVIC E Final Result Performing Organization Address [facility] Co de Phone Number [facility] ORDERS INTERFACE US * (ABNORMAL) BASIC METABOLIC PANEL (01/17/2016 6:57 AM UNDERCAR SPECIALIST) GLUCOSE 238(H) 70 - 99 mg/dL 01/17/2016 8:[address] [facility] BUN 29(H) 8 - 23 mg/dL 01/17/2016 8:[address] [facility] CREATININE S/P/B 0.86 0.60 - 1.10 mg/dL 01/17/2016 8:[address] [facility] SODIUM S/P/B 137 136 - 145 mmol/L 01/17/2016 8:[address] [facility] POTASSIUM S/P/B 4.5 3.5 - 5.1 mmol/L 01/17/2016 8:[address] [facility] CHLORIDE S/P/B 100 98 - 107 mmol/L 01/17/2016 8:[address] [facility] CO2 24 22 - 29 mmol/L 01/17/2016 8:[address] [facility] CALCIUM S/P/B 9.6 8.6 - 10.2 mg/dL 01/17/2016 8:40 AM UNDERCAR SPECIALIST [facility] ANION GAP 18 8 - 20 01/17/2016 8:40 AM UNDERCAR SPECIALIST [facility] EGFR NON-AFR. AMER. >60 >60 mL/min/1.7 3m'2 01/17/2016 8:40 AM UNDERCAR SPECIALIST [facility] EGFR AFR. AMER. >60 >60 mL/min/1.7 [facility]2 01/17/2016 8:[address] [facility] Comment: NOTE: eGFR is not calculated for patients <18 years of age. This is an estimated GFR (CKD EPI) and should not be used for calculating drug doses. 01/17/2016 6:57 AM UNDERCAR SPECIALIST 01/17/2016 8:00 AM UNDERCAR SPECIALIST us Generic Conversion Md [facility] Final R esult [facility] [address] [place] [address], documented in this encounter Visit Diagnoses Diagnosis Type 2 diabetes mellitus with foot ulcer (CODE) (CMS/HCC [facility]) documented in this encounter Care Teams Pilot Plant Research Technician Relationship Specialty Start Date End Date Jarred Rod MD PCP - General FAMILY PRACTICE 07/21/15 09/30/20 Crispin Gomez MD [address] [address] [place] Sheet Folder INTERNAL MEDICINE 07/21/15 documented as of this encounter
--- OUTSIDE RECORDS SUMMARY | 2024-03-03 01:33 | XMS_ITS | Encounter Summary ---
Author Organization [facility] Address [address] [place] [address]. [place] [address] [place] [address] Care Team Providers Care Packing And Final Assembly Supervisor Name Role Phone Jarred Rod MD Primary Care Provider Unav ailable Crispin Gomez MD Unavailable [phone] Jarred Rod MD Primary Care Provider Unav ailJarred Hayden MD Primary Care Provider Unav ailable Jarred Rod MD Primary Care Provider Unav ailable Jarred Rod MD Primary Care Provider Unav ailable Encounter Details Date Type Department Care Team (Late st Contact Info) Description 03/29/1990 Abstract [place] [address] , Generic Conversion, Social History [...] st Contact Info) Description 03/14/2024 11:45 AM INSOLE COVERER Office Visit [facility] [address] Marvin Mckeon MD [address] [facility] [address] [place] [address] 03/20/2024 11:30 AM INSOLE COVERER Office Visit [facility] Family Medicine - [place] [address] [place] [phone] Abiodun Segura II, MD 100 [place] [address] documented as of this encounter Visit Diagnoses Not on filedocumented in this encounter Care Teams Packing And Final Assembly Supervisor Relationship Specialty Start Date End Date Jarred Rod MD PCP - General FAMILY PRACTICE 07/21/15 09/30/20 Jarred Rod MD PCP - General 05/05/14 07/20/15 Jarred Rod MD PCP - General 03/03/13 05/04/14 Jarred Rod MD PCP - General 12/02/12 03/02/13 Jarred Rod MD PCP - General 11/07/12 12/01/12 Crispin [facility] [place] [address] [place] Disc Pad Grinder INTERNAL MEDICINE 07/21/15 documented as of this encounter
--- OUTSIDE RECORDS SUMMARY | 2024-03-03 01:33 | XMS_ITS | Encounter Summary ---
Author Organization [facility] Address [address] [place] [address]. [place] [address] [place] [address] Care Team Providers Care Rag Shredder Name Role Phone Jarred Rod MD Primary Care Provider UnaCrispin Myers MD Unavailable [phone] Encounter Details Date Type Department Care Team (Late st Contact Info) Description 01/21/2016 Orders Only [facility] [address] [place] [address] , Giacomo Rudolhp MD Social History Tobacco Use Types Packs/Day [...] st Contact Info) Description 03/14/2024 11:45 AM BARIATRIC COORDINATOR Office Visit [facility]-[address] [address] Marvin Mckeon MD [facility] [address] [place], [place] [address] 03/20/2024 11:30 AM BARIATRIC COORDINATOR Office Visit [facility] Family Medicine - [place] [address] [place] [phone] Abiodun Segura II, MD [address] [place] [address] documented as of this encounter Procedures Procedure Name Priority Date/Time Associated Diagnosis Comments CARDIOLOGY GENERIC 01/21/2016 8: 53 AM BARIATRIC COORDINATOR documented in this encounter Results * CARDIOLOGY GENERIC (01/21/2016 8:53 AM BARIATRIC COORDINATOR) 01/21/2016 8:53 AM BARIATRIC COORDINATOR Narrative [facility] - 01/21/2016 12:00 AM BARIATRIC COORDINATOR ? LENA YOUNGBLOOD Ordering MD: AKIL BLUE MD HOSPITALIST ?? Acct: [id number] ?? Admit/Service Date: 01/21/16 Discharge Date: ?? : 1970 Pt Type: ADM IN ?? Sex: F Ord [facility] ?Test Date: ?2016-01-21 ?? Pat Name: ? LENA YOUNGBLOOD ?Department: CARD ?? 40 ? Room: ? D6241 ?? Gender: ? Female ? French Folding Machine Operator: ?? CDN ?? : ?1970 ? Requested By: AKIL MIRZA AKIL MIRZA ?? Order Number: [id number] ?Reading MD: ?? Jermain Muñozpta ?Measurements ?? Intervals ?[place] ? Rate: ? 77 ? P: ?48 ?? ID: ? [id number] ?QRS: ?17 ?? QRSD: ? 83 ? T: ?8 ?? QT: ? 405 ? QTc: ?460 ?Interpretive Statements ?? SINUS RHYTHM ?? NONSPECIFIC T-WAVE ABNORMALITY ?? Compared to ECG 01/17/2016 10:36:32 ?? Left ventricular hypertrophy no longer present ?? T-wave abnormality still present ?? ATRIC COORDINATOR ? Procedure Note Jermain Soriano MD - 01/21/2016 LENA YOUNGBLOOD Ordering MD: AKIL BLUE MD HOSPITALIST Acct: [id number] Admit/Service Date: 01/21/16 Discharge Date: : 1970 Pt Type: ADM IN Sex: F Ord Site: [address] Test Date: 2016-01-21 Pat Name: LENA YOUNGBLOOD Department: CARD 40 Room: D6241 Gender: Female French Folding Machine Operator: PHILLIP : 1970 Requested By: AKIL LING Order Number: [id number] Reading MD: Jermain Soriano Measurements Intervals [place] Rate: 77 P: 48 ID: [id number] QRS: 17 QRSD: 83 T: 8 QT: 405 QTc: 460 Interpretive Statements SINUS RHYTHM NONSPECIFIC T-WAVE ABNORMALITY Compared to ECG 01/17/2016 10:36:32 Left ventricular hypertrophy no longer present T-wave abnormality still present ATRIC COORDINATOR us Generic Conversion Md [facility] Final Result [facility] RADIOLOGY documented in this encounter Visit Diagnoses Not on filedocumented in this encounter Care Teams Rag Shredder Relationship Specialty Start Date End Date Jarred Rod MD PCP - General FAMILY PRACTICE 07/21/15 09/30/20 Crispin Gomez MD Three [facility] [id number] [place] [address] [employer] Process Worker INTERNAL MEDICINE 07/21/15 documented as of this encounter
--- OUTSIDE RECORDS SUMMARY | 2024-03-03 01:33 | XMS_ITS | Encounter Summary ---
Author Organization [facility] Address [address] [place] [address]. [place] [address] [place] [address] Care Team Providers Care Email Production Consultant Name Role Phone Jarred Rod MD Primary Care Provider Unav ailable Crispin Gomez MD Unavailable [phone] Jarred Rod MD Primary Care Provider Unav ailJarred Hayden MD Primary Care Provider Unav ailable Jarred Rod MD Primary Care Provider Unav ailable Jarred Rod MD Primary Care Provider Unav ailable Encounter Details Date Type Department Care Team (Late st Contact Info) Description 01/08/2006 Abstract [facility] [address] [place], [place] [id number] Giacomo Galaviz MD Social History Tobacco Use [...] st Contact Info) Description 03/14/2024 11:45 AM POST OFFICE CLERK Office Visit [facility] [address] Marvin Mckeon MD [address] [facility] [address] [place] [address] 03/20/2024 11:30 AM POST OFFICE CLERK Office Visit [facility] Family Medicine - [place] [address] [place] [phone] Abiodun Segura II, MD 100 [place] [address] documented as of this encounter Visit Diagnoses Not on filedocumented in this encounter Care Teams Email Production Consultant Relationship Specialty Start Date End Date Jarred Rod MD PCP - General FAMILY PRACTICE 07/21/15 09/30/20 Jarred Rod MD PCP - General 05/05/14 07/20/15 Jarred Rod MD PCP - General 03/03/13 05/04/14 Jarred Rod MD PCP - General 12/02/12 03/02/13 Jarred Rod MD PCP - General 11/07/12 12/01/12 Crispin Gomez MD [facility] [place] [address] [place] Wheat Buyer INTERNAL MEDICINE 07/21/15 documented as of this encounter
--- OUTSIDE RECORDS SUMMARY | 2024-03-03 01:33 | XMS_ITS | Encounter Summary ---
Author Organization [facility] Address [address] [place] [address]. [place], [place] [address] [place] [address] Care Team Providers Care Special Tester Name Role Phone Jarred Rod MD Primary Care Provider Crispin Winkler MD Unavailable [phone] Encounter Details Date Type Department Care Team (Late st Contact Info) Description 08/20/2015 Emergency [facility] Emergency Room [place], [place] [id number] Sofy Sierra PA-C [address] [id number] Social History Tobacco Use Types Packs/Day Years [...] st Contact Info) Description 03/14/2024 11:45 AM TROUBLE LOCATER Office Visit [facility] [address] Marvin Mckeon MD [address] [facility] [address] [place] [address] 03/20/2024 11:30 AM TROUBLE LOCATER Office Visit [facility] - [place] [address] [place] [phone] Abiodun Segura II, MD [address] [place], [place] [phone] documented as of this encounter Procedures Procedure [...] - 99 mg/dL 08/20/2015 1:25 PM CDT [facility] ORDERS INTERFACE 08/20/2015 1:07 PM CDT 08/20/2015 1:24 PM CDT us Generic Conversion Md YRDER POCT ORDERABLES - DEVIC E Final Result [facility] ORDERS INTERFACE US * CULTURE URINE (08/20/2015 1:07 PM CDT) SPEC DESCRIPTION URINE CLEAN CATCH 08/20/2015 1:20 PM CDT [facility] SPECIAL REQUESTS NO SPECIAL REQUEST 08/20/2015 1:20 PM CDT [facility] CULTURE RESULT >100,000 COL/ML PROTEUS MIRABILIS 08/22/2015 7:31 AM CDT [facility] CULTURE RESULT POLYMICROBIAL GROWTH CONSISTENT WITH NORMAL GENITAL AIDEN. ?? SUSCEPTIBILITIES NOT ROUTINELY PERFORMED. 08/22/2015 7:31 AM CDT [facility] URINE SPECIMEN OBTAINED BY [...] RYDER MICROBIOLOGY - GENERAL ORDERABLES Final Result [facility] [address] [place] [address], * (ABNORMAL) URINALYSIS WI REFLEX TO CULTURE (08/20/2015 1:07 PM CDT) SOURCE (FLUID) URINE CLEAN CATCH 08/20/2015 12:50 PM T [facility] COLOR (U) YELLOW 08/20/2015 1:19 PM T [facility] TRANSPARENCY CLOUDY 08/20/2015 1:19 PM [facility] SPECIFIC GRAVITY (U) 1.014 1.001 - 1.030 08/20/2015 1:19 PM T [facility] U PH 8.0 5.0 - 9.0 08/20/2015 1:19 PM T [facility] LEUKOCYTES (U) SMALL(A) NEGATIVE 08/20/2015 1:19 PM T [facility] NITRITES NEGATIVE NEGATIVE 08/20/2015 1:19 PM [facility] PROTEIN (U) 100(H) <30 MG/DL 08/20/2015 1:19 PM [facility] URINE GLUCOSE 150(A) NEGATIVE MG/DL 08/20/2015 1:19 PM T [facility] KETONES MG/DL (U) NEGATIVE NEGATIVE MG/DL 08/20/2015 1:19 PM T [facility] UROBILINOGEN NEGATIVE NEGATIVE MG/DL 08/20/2015 1:19 PM T [facility] BILIRUBIN (U) NEGATIVE NEGATIVE MG/DL 08/20/2015 1:19 PM T [facility] BLOOD (U) NEGATIVE NEGATIVE 08/20/2015 1:19 PM T [facility] CULTURE & SENSITIVITY INDICATED? SPECIMEN SETUP FOR CULTURE 08/20/2015 1:19 PM T [facility] SQUAMOUS EPITHELIALS MANY /LPF 08/20/2015 1:19 PM [facility] HYALINE CASTS RARE /LPF 08/20/2015 1:19 PM T [facility] WBC/HPF 21(H) <6 /HPF 08/20/2015 1:19 PM CDT [facility] RBC/HPF <1 <6 /HPF 08/20/2015 1:19 PM CDT [facility] BACTERIA (U) RARE(A) NONE /HPF 08/20/2015 1:19 PM CDT [facility] 08/20/2015 1:07 PM CDT 08/20/2015 1:10 PM CDT us Generic Conversion Md RYDER URINE ORDERABLES Final Result Performing Organization Address [facility]/ZIP Co de Phone Number [facility] [address] [place] [address], * LIPASE (08/20/2015 1:07 PM CDT) LIPASE 21 13 - 60 U/L 08/20/2015 1:35 PM CDT [facility] SERUM OR PLASMA SPECIMEN / Unknown 08/20/2015 1:07 PM CDT 08/20/2015 1:10 PM CDT us Generic Conversion Md RYDER LABORATORY Final R esult Performing Organization Address [facility]/ZIP Co de Phone Number [facility] [address] [place] [address], [place] [phone] * (ABNORMAL) COMPREHENSIVE METABOLIC PANEL (08/20/2015 1:07 PM CDT) GLUCOSE 250(H) 70 - 99 mg/dL 08/20/2015 1:35 PM CDT [facility] BUN 19 8 - 23 mg/dL 08/20/2015 1:35 PM CDT [facility] CREATININE S/P/B 0.80 0.60 - 1.10 mg/dL 08/20/2015 1:35 PM CDT [facility] SODIUM S/P/B 135(L) 136 - 145 mmol/L 08/20/2015 1:35 PM CDT [facility] POTASSIUM S/P/B 4.3 3.5 - 5.1 mmol/L 08/20/2015 1:35 PM CDT [facility] CHLORIDE S/P/B 98 98 - 107 mmol/L 08/20/2015 1:35 PM CDT [facility] CO2 25 22 - 29 mmol/L 08/20/2015 1:35 PM CDT [facility] BILIRUBIN TOTAL S/P/B 0.5 0.2 - 1.2 mg/dL 08/20/2015 1:35 PM T [facility] CALCIUM S/P/B 9.1 8.6 - 10.2 mg/dL 08/20/2015 1:35 PM CDT [facility] ALKALINE PHOSPHATASE S/P/B 111(H) 35 - 104 U/L 08/20/2015 1:35 PM CDT [facility] AST 12 0 - 32 U/L 08/20/2015 1:35 PM T [facility] TOTAL PROTEIN S/P/B 8.6(H) 6.4 - 8.3 g/dL 08/20/2015 1:35 PM CDT [facility] ALBUMIN S/P/B 4.2 3.5 - 5.2 g/dL 08/20/2015 1:35 PM CDT [facility] ALT 12 0 - 33 U/L 08/20/2015 1:35 PM CDT [facility] GLOBULIN 4.4(H) 2.3 - 3.6 g/dL 08/20/2015 1:35 PM T [facility] A/G RATIO 1.0 1.0 - 2.0 08/20/2015 1:35 PM CDT [facility] ANION GAP 16 8 - 20 08/20/2015 1:35 PM CDT [facility] EGFR NON-AFR. AMER. >60 >60 mL/min/1.7 '2 08/20/2015 1:35 PM CDT [facility] EGFR AFR. AMER. >60 >60 mL/min/1.7 [facility]2 08/20/2015 1:35 PM CDT [facility] Comment: NOTE: eGFR is not calculated for patients <18 years of age. This is an estimated GFR (CKD EPI) and should not be used for calculating drug doses. 08/20/2015 1:07 PM CDT 08/20/2015 1:10 PM CDT us Generic Conversion Md RYDER LABORATORY Final R esult [facility] [address] [place] [address], * (ABNORMAL) CBC W/DIFF AUTOMATED (08/20/2015 1:07 PM CDT) WBC 10.4 4.8 - 10.8 X10'3/uL 08/20/2015 1:13 PM CDT [facility] RBC 3.94(L) 4.20 - 5.40 X10'6/uL 08/20/2015 1:13 PM CDT [facility] HGB 12.0 12.0 - 16.0 g/dL 08/20/2015 1:13 PM CDT [facility] HCT 34.6(L) 38.0 - 48.0 % 08/20/2015 1:13 PM CDT [facility] MCV 87.8 81.0 - 99.0 fL 08/20/2015 1:13 PM CDT [facility] MCH 30.5 27.0 - 31.0 pg 08/20/2015 1:13 PM CDT [facility] MCHC 34.7 32.0 - 36.0 g/dL 08/20/2015 1:13 PM CDT [facility] RDW 12.5 11.5 - 14.5 % 08/20/2015 1:13 PM CDT [facility] PLT 257 130 - 400 X10'3/uL 08/20/2015 1:13 PM CDT [facility] MPV 11.3 9.3 - 12.2 fL 08/20/2015 1:13 PM CDT [facility] DIFFERENTIAL TYPE AUTOMATED 08/20/2015 1:13 PM CDT [facility] NEUTROPHILS % 61.4 43.0 - 65.0 % 08/20/2015 1:13 PM CDT [facility] LYMPHOCYTES % 32.2 20.0 - 46.0 % 08/20/2015 1:13 PM CDT [facility] MONOCYTES % 4.9(L) 5.0 - 12.0 % 08/20/2015 1:13 PM CDT [facility] EOSINOPHILS 0.5(L) 1.0 - 3.0 % 08/20/2015 1:13 PM CDT [facility] BASOPHILS 0.6 0.0 - 1.0 % 08/20/2015 1:13 PM CDT [facility] IMMATURE GRANS % 0.4 0.0 - 1.0 % 08/20/2015 1:13 PM CDT [facility] 08/20/2015 1:07 PM CDT 08/20/2015 1:10 PM CDT us Generic Conversion Md [facility]YDER LABORATORY Final R esult [facility] [address] [place] [address], [place] [phone] * AMYLASE (08/20/2015 1:07 PM CDT) AMYLASE S/P/B 45 28 - 100 U/L 08/20/2015 1:35 PM CDT [facility] SERUM OR PLASMA SPECIMEN / Unknown 08/20/2015 1:07 PM CDT 08/20/2015 1:10 PM CDT us Generic Conversion Md RYDER LABORATORY Final R esult [facility] [address] [place] [address], documented in this encounter Visit Diagnoses Diagnosis Urinary tract infection Urinary tract infection, site not specified documented in this encounter Care Teams Special Tester Relationship Specialty Start Date End Date Jarred Rod MD PCP - General FAMILY PRACTICE 07/21/15 09/30/20 Crispin Gomez MD [address] [address] [place] Volunteer Manager INTERNAL MEDICINE 07/21/15 documented as of this encounter
--- OUTSIDE RECORDS SUMMARY | 2024-03-03 01:33 | XMS_ITS | Encounter Summary ---
Author Organization [facility] Address [address] [place] [address]. [place] [address] [place] [address] Care Team Providers Care Registered Route Associate Name Role Phone Jarred Rod MD Primary Care Provider Unav ailable Crispin Gomez MD Unavailable [phone] Jarred Rod MD Primary Care Provider Unav ailJarred Hayden MD Primary Care Provider Unav ailable Jarred Rod MD Primary Care Provider Unav ailable Jarred Rod MD Primary Care Provider Unav ailable Encounter Details Date Type Department Care Team (Late st Contact Info) Description 05/24/1993 Abstract [place] [address] , Generic Conversion, Social History [...] st Contact Info) Description 03/14/2024 11:45 AM MAGNETIC PROSPECTING OPERATOR Office Visit [facility] [address] Marvin Mckeon MD [address] [facility] [address] [place] [address] 03/20/2024 11:30 AM MAGNETIC PROSPECTING OPERATOR Office Visit [facility] Family [facility] - [place] [address] [place] [phone] Abiodun Segura II, MD [address] [place] [address] documented as of this encounter Visit Diagnoses Not on filedocumented in this encounter Care Teams Registered Route Associate Relationship Specialty Start Date End Date Jarred Rod MD PCP - General FAMILY PRACTICE 07/21/15 09/30/20 Jarred Rod MD PCP - General 05/05/14 07/20/15 Jarred Rod MD PCP - General 03/03/13 05/04/14 Jarred Rod MD PCP - General 12/02/12 03/02/13 Jarred Rod MD PCP - General 11/07/12 12/01/12 Crispin Gomez MD [address] [facility] [address] [place] [address] [place] Client Service Consultant INTERNAL MEDICINE 07/21/15 documented as of this encounter
--- OUTSIDE RECORDS SUMMARY | 2024-03-03 01:33 | XMS_ITS | Encounter Summary ---
Author Organization [facility] Address [address] [place] [address]. [place] [address] [place] [address] Care Team Providers Care Dogger Name Role Phone Jarred Rod MD Primary Care Provider Unav Crispin Peres MD Unavailable [phone] Encounter Details Date Type Department Care Team (Late st Contact Info) Description 01/02/2016 Emergency [facility] [place] [address] Kenya Leavitt MD Social History [...] st Contact Info) Description 03/14/2024 11:45 AM CAMPAIGN MARKETING SPECIALIST Office Visit [facility] [address] Marvin Mckeon MD Three [facility] [address] [place] [address] 03/20/2024 11:30 AM CAMPAIGN MARKETING SPECIALIST Office Visit [facility] Family Medicine - [place] [address] [place] [phone] Abiodun Segura II, MD 100 [place], [place] [phone] documented as of this encounter Procedures Procedure Name Priority Date/Time Associated Diagnosis Comments URINALYSIS WI REFLEX TO CULTURE STAT 01/02/2016 9:53 AM CAMPAIGN MARKETING SPECIALIST CKMB(MB FRACTION ONLY) TIMED 6 9:53 AM CAMPAIGN MARKETING SPECIALIST TROPONIN, QUANT TIMED 01/02/2016 9:53 AM CAMPAIGN MARKETING SPECIALIST CK (CPK) TIMED 01/02/2016 9:53 AM CAMPAIGN MARKETING SPECIALIST LACTIC ACID STAT 01/02/2016 8:03 AM CAMPAIGN MARKETING SPECIALIST PARTIAL THROMBOPLASTIN TIME,PTT STAT 01/02/2016 7:48 AM CAMPAIGN MARKETING SPECIALIST PROTHROMBIN TIME, VENOUS STAT 01/02/2016 7:48 AM CAMPAIGN MARKETING SPECIALIST COMPREHENSIVE METABOLIC PANEL STAT 01/02/2016 7:48 AM CAMPAIGN MARKETING SPECIALIST CKMB(MB FRACTION ONLY) STAT 6 7:48 AM CAMPAIGN MARKETING SPECIALIST CBC W/DIFF AUTOMATED STAT 01/02/2016 7:48 AM CAMPAIGN MARKETING SPECIALIST TROPONIN, QUANT STAT 01/02/2016 7:48 AM CAMPAIGN MARKETING SPECIALIST LIPASE STAT 01/02/2016 7:48 AM CAMPAIGN MARKETING SPECIALIST CK (CPK) STAT 01/02/2016 7:48 AM CAMPAIGN MARKETING SPECIALIST documented in this encounter Results * (ABNORMAL) URINALYSIS WI REFLEX TO CULTURE (01/02/2016 9:53 AM CAMPAIGN MARKETING SPECIALIST) SOURCE (FLUID) URINE CLEAN CATCH 01/02/2016 8:40 AM [facility] COLOR (U) YELLOW 01/02/2016 12:01 PM [facility] TRANSPARENCY CLOUDY 01/02/2016 12:01 PM [facility] SPECIFIC GRAVITY (U) 1.024 1.001 - 1.030 01/02/2016 12:01 PM [facility] U PH 7.0 5.0 - 9.0 01/02/2016 12:01 PM [facility] LEUKOCYTES (U) NEGATIVE NEGATIVE 01/02/2016 12:01 PM [facility] NITRITES NEGATIVE NEGATIVE 01/02/2016 12:01 PM [facility] PROTEIN (U) 100(H) <30 MG/DL 01/02/2016 12:01 PM [facility] URINE GLUCOSE 150(A) NEGATIVE MG/DL 01/02/2016 12:01 PM [facility] KETONES MG/DL (U) NEGATIVE NEGATIVE MG/DL 01/02/2016 12:01 PM [facility] UROBILINOGEN NEGATIVE NEGATIVE MG/DL 01/02/2016 12:01 PM [facility] BILIRUBIN (U) NEGATIVE NEGATIVE MG/DL 01/02/2016 12:01 PM [facility] BLOOD (U) NEGATIVE NEGATIVE 01/02/2016 12:01 PM [facility] CULTURE & SENSITIVITY INDICATED? CULTURE IS NOT INDICATED 01/02/2016 12:01 PM [facility] SQUAMOUS EPITHELIALS MANY /LPF 01/02/2016 12:01 PM [facility] WBC/HPF 1 <6 /HPF 01/02/2016 12:01 PM [facility] RBC/HPF 2 <6 /HPF 01/02/2016 12:01 PM CAMPAIGN MARKETING SPECIALIST [facility] 01/02/2016 9:53 AM CAMPAIGN MARKETING SPECIALIST 01/02/2016 11:05 AM CAMPAIGN MARKETING SPECIALIST us Generic Conversion Md RYDER URINE ORDERABLES Final Result [facility] [address] [place] [address], * CK (CPK) (01/02/2016 9:53 AM CAMPAIGN MARKETING SPECIALIST) CPK 166 26 - 192 U/L 01/02/2016 11:29 AM CAMPAIGN MARKETING SPECIALIST [facility] SERUM OR PLASMA SPECIMEN / Unknown 01/02/2016 9:53 AM CAMPAIGN MARKETING SPECIALIST 01/02/2016 11:05 AM CAMPAIGN MARKETING SPECIALIST us Generic Conversion Md [facility] LABORATORY Final R esult Performing Organization Address [facility]/ZIP Co de Phone Number [facility] [address] [place] [address], * TROPONIN, QUANT (01/02/2016 9:53 AM CAMPAIGN MARKETING SPECIALIST) TROPONIN I <0.30 <0.30 ng/mL 01/02/2016 12:07 PM CAMPAIGN MARKETING SPECIALIST [facility] SERUM OR PLASMA SPECIMEN / Unknown 01/02/2016 9:53 AM CAMPAIGN MARKETING SPECIALIST 01/02/2016 11:05 AM CAMPAIGN MARKETING SPECIALIST us Generic Conversion Md [facility] LABORATORY Final R esult Performing Organization Address City/[facility]/ZIP Co de Phone Number [facility] [address] [place] [address], * CKMB(MB FRACTION ONLY) (01/02/2016 9:53 AM CAMPAIGN MARKETING SPECIALIST) CK-MB 2.72 <4.30 ng/mL 01/02/2016 11:30 AM CAMPAIGN MARKETING SPECIALIST [facility] SERUM OR PLASMA SPECIMEN / Unknown 01/02/2016 9:53 AM CAMPAIGN MARKETING SPECIALIST 01/02/2016 11:05 AM CAMPAIGN MARKETING SPECIALIST Generic Conversion Md [facility] LABORAT[facility] Final R esult Performing Organization Address City/[facility]/ZIP Co de Phone Number [facility] [address] [place] [address], * LACTIC ACID (01/02/2016 8:03 AM CAMPAIGN MARKETING SPECIALIST) LACTIC ACID VENOUS 1.95 0.5 - 2.2 mmol/L 01/02/2016 9:41 AM CAMPAIGN MARKETING SPECIALIST [facility] Comment: NOTE: Acetaminophen, N Acetyl p benzoquinone imine (NAPQI), N acetylcysteine (NAC), Metamizole, 4 Aminoantipyrine (4 AAP) and 4 Methylamino antipyrine (4 MAP) at high concentrations can cause falsely low results on Lactate, Uric Acid, Cholesterol, Triglyceride, HDL, and Direct LDL. PLASMA SPECIMEN / Unknown 01/02/2016 8:03 AM CAMPAIGN MARKETING SPECIALIST 01/02/2016 9:26 AM CAMPAIGN MARKETING SPECIALIST Generic Conversion Md [facility] LABORAT[facility] Final R esnas Performing Organization Address City/[facility]/ZIP Co de Phone Number [facility] [address] [place] [address], * (ABNORMAL) LIPASE (01/02/2016 7:48 AM CAMPAIGN MARKETING SPECIALIST) LIPASE 12(L) 13 - 60 U/L 01/02/2016 9:15 AM CAMPAIGN MARKETING SPECIALIST [facility] SERUM OR PLASMA SPECIMEN / Unknown 01/02/2016 7:48 AM CAMPAIGN MARKETING SPECIALIST 01/02/2016 8:53 AM CAMPAIGN MARKETING SPECIALIST Generic Conversion Md [facility] LAB[facility] Final R esult Performing Organization Address [facility]/ZIP Co de Phone Number [facility] [address] [place] [address], * TROPONIN, QUANT (01/02/2016 7:48 AM CAMPAIGN MARKETING SPECIALIST) TROPONIN I <0.30 <0.30 ng/mL 01/02/2016 9:16 AM CAMPAIGN MARKETING SPECIALIST [facility] SERUM OR PLASMA SPECIMEN / Unknown 01/02/2016 7:48 AM CAMPAIGN MARKETING SPECIALIST 01/02/2016 8:53 AM CAMPAIGN MARKETING SPECIALIST us Generic Conversion Md [facility] LAB[facility]AT[facility] Final R charley Performing Organization Address [facility] Co de Phone Number [facility] [address] [place] [address], * CKMB(MB FRACTION ONLY) (01/02/2016 7:48 AM CAMPAIGN MARKETING SPECIALIST) CK-MB 2.75 <4.30 ng/mL 01/02/2016 9:16 AM CAMPAIGN MARKETING SPECIALIST [facility] SERUM OR PLASMA SPECIMEN / Unknown 01/02/2016 7:48 AM CAMPAIGN MARKETING SPECIALIST 01/02/2016 8:53 AM CAMPAIGN MARKETING SPECIALIST us Generic Conversion Md [facility] LABORAT[facility] Final R charley Performing Organization Address City/[facility]/ZIP Co de Phone Number [facility] [address] [place] [address], * PARTIAL THROMBOPLASTIN TIME,PTT (01/02/2016 7:48 AM CAMPAIGN MARKETING SPECIALIST) PTT 27.1 25.5 - 37.6 SEC 01/02/2016 9:07 AM CAMPAIGN MARKETING SPECIALIST [facility] PLASMA SPECIMEN / Unknown 01/02/2016 7:48 AM CAMPAIGN MARKETING SPECIALIST 01/02/2016 8:52 AM CAMPAIGN MARKETING SPECIALIST us Generic Conversion Md [facility] LAB[facility]AT[facility] Final R esnas Performing Organization Address City/[facility]/ZIP Co de Phone Number [facility] [address] [place] [address], * PROTIME/INR, VENOUS (01/02/2016 7:48 AM CAMPAIGN MARKETING SPECIALIST) PROTIME 11.1 9.6 - 12.2 SEC 01/02/2016 9:07 AM CAMPAIGN MARKETING SPECIALIST [facility] INR 1.0 01/02/2016 9:07 AM CAMPAIGN MARKETING SPECIALIST [facility] Comment: Recommended INR Therapeutic Goals: ??2.0-3.0 Routine Therapy ??2.5-3.5 Mechanical Prosthetic Valves (High Risk) ??3.0-4.0 Acute IN (to prevent Systemic Embolism) The INR is used only for patients on stable oral anticoagulant therapy. It makes no significant contribution to the diagnosis or treatment of patients whose Protime is prolonged for other reasons. 01/02/2016 7:48 AM CAMPAIGN MARKETING SPECIALIST 01/02/2016 8:52 AM CAMPAIGN MARKETING SPECIALIST us Generic Conversion Md [facility] LAB[facility] Final R esnas Performing Organization Address [facility] Co de Phone Number [facility] [address] [place] [address], [place] [phone] * CK (CPK) (01/02/2016 7:48 AM CAMPAIGN MARKETING SPECIALIST) CPK 172 26 - 192 U/L 01/02/2016 9:14 AM CAMPAIGN MARKETING SPECIALIST [facility] SERUM OR PLASMA SPECIMEN / Unknown 01/02/2016 7:48 AM CAMPAIGN MARKETING SPECIALIST 01/02/2016 8:52 AM CAMPAIGN MARKETING SPECIALIST us Generic Conversion Md [facility] Final R esnas Performing Organization Address City/[facility]/ZIP Co de Phone Number [facility] [address] [place] [address], [place] [phone] * (ABNORMAL) COMPREHENSIVE METABOLIC PANEL (01/02/2016 7:48 AM [facility]) [facility] Signature GLUCOSE 239(H) 70 - 99 mg/dL 01/02/2016 9:14 AM [facility] BUN 17 8 - 23 mg/dL 01/02/2016 9:14 AM [facility] CREATININE S/P/B 0.64 0.60 - 1.10 mg/dL 01/02/2016 9:14 AM [facility] SODIUM S/P/B 133(L) 136 - 145 mmol/L 01/02/2016 9:14 AM [facility] POTASSIUM S/P/B 4.1 3.5 - 5.1 mmol/L 01/02/2016 9:14 AM [facility] CHLORIDE S/P/B 94(L) 98 - 107 mmol/L 01/02/2016 9:14 AM [facility] CO2 26 22 - 29 mmol/L 01/02/2016 9:14 AM [facility] BILIRUBIN TOTAL S/P/B 0.6 0.2 - 1.2 mg/dL 01/02/2016 9:14 AM [facility] CALCIUM S/P/B 9.5 8.6 - 10.2 mg/dL 01/02/2016 9:14 AM [facility] ALKALINE PHOSPHATASE S/P/B 113(H) 35 - 104 U/L 01/02/2016 9:14 AM [facility] AST 14 0 - 32 U/L 01/02/2016 9:14 AM [facility] TOTAL PROTEIN S/P/B 8.4(H) 6.4 - 8.3 g/dL 01/02/2016 9:14 AM [facility] ALBUMIN S/P/B 4.2 3.5 - 5.2 g/dL 01/02/2016 9:14 AM [facility] ALT 16 0 - 33 U/L 01/02/2016 9:14 AM [facility] GLOBULIN 4.2(H) 2.3 - 3.6 g/dL 01/02/2016 9:14 AM [facility] A/G RATIO 1.0 1.0 - 2.0 01/02/2016 9:14 AM [facility] ANION GAP 17 8 - 20 01/02/2016 9:14 AM [facility] EGFR NON-AFR. AMER. >60 >60 mL/min/1.7 3m'2 01/02/2016 9:14 AM [facility] EGFR AFR. AMER. >60 >60 mL/min/1.7 3m'2 01/02/2016 9:14 AM [facility] Comment: NOTE: eGFR is not calculated for patients <18 years of age. This is an estimated GFR (CKD EPI) and should not be used for calculating drug doses. 01/02/2016 7:48 AM CAMPAIGN MARKETING SPECIALIST 01/02/2016 8:52 AM CAMPAIGN MARKETING SPECIALIST us Generic Conversion Md [facility] LAB[facility]AT[facility] Final R esult [facility] [address] [place] [address], * (ABNORMAL) CBC W/DIFF AUTOMATED (01/02/2016 7:48 AM CAMPAIGN MARKETING SPECIALIST) WBC 11.0(H) 4.8 - 10.8 X10'3/uL 01/02/2016 8:57 AM [facility] RBC 4.03(L) 4.20 - 5.40 X10'6/uL 01/02/2016 8:57 AM [facility] HGB 12.1 12.0 - 16.0 g/dL 01/02/2016 8:57 AM [facility] HCT 34.5(L) 38.0 - 48.0 % 01/02/2016 8:57 AM [facility] MCV 85.6 81.0 - 99.0 fL 01/02/2016 8:57 AM [facility] MCH 30.0 27.0 - 31.0 pg 01/02/2016 8:57 AM [facility] MCHC 35.1 32.0 - 36.0 g/dL 01/02/2016 8:57 AM [facility] RDW 12.0 11.5 - 14.5 % 01/02/2016 8:57 AM [facility] PLT 287 130 - 400 X10'3/uL 01/02/2016 8:57 AM [facility] MPV 11.1 9.3 - 12.2 fL 01/02/2016 8:57 AM [facility] DIFFERENTIAL TYPE AUTOMATED 01/02/2016 8:57 AM [facility] NEUTROPHILS % 75.0(H) 43.0 - 65.0 % 01/02/2016 8:57 AM [facility] LYMPHOCYTES % 21.1 20.0 - 46.0 % 01/02/2016 8:57 AM [facility] MONOCYTES % 2.9(L) 5.0 - 12.0 % 01/02/2016 8:57 AM [facility] EOSINOPHILS 0.2(L) 1.0 - 3.0 % 01/02/2016 8:57 AM [facility] BASOPHILS 0.5 0.0 - 1.0 % 01/02/2016 8:57 AM [facility] IMMATURE GRANS % 0.3 0.0 - 1.0 % 01/02/2016 8:57 AM CAMPAIGN MARKETING SPECIALIST [facility] 01/02/2016 7:48 AM CAMPAIGN MARKETING SPECIALIST 01/02/2016 8:52 AM CAMPAIGN MARKETING SPECIALIST us Generic Conversion Md [facility] Final R esult [facility] [address] [place] [address], documented in this encounter Visit Diagnoses Diagnosis Nausea with vomiting documented in this encounter Care Teams Dogger Relationship Specialty Start Date End Date Jarred Rod MD PCP - General FAMILY PRACTICE 07/21/15 09/30/20 Crispin Gomez MD [address] [address] [place] [employer] INTERNAL MEDICINE 07/21/15 documented as of this encounter
--- OUTSIDE RECORDS SUMMARY | 2024-03-03 01:33 | XMS_ITS | Encounter Summary ---
Author Organization [facility] Address [address] [place] [address]. [place] [address] [place] [address] Care Team Providers Care Lumber Carrier Name Role Phone Jarred Rod MD Primary Care Provider UnaCrispin Myers MD Unavailable Encounter Details Date Type Department Care Team (Late st Contact Info) Description 01/17/2016 Orders Only [facility] [address] [place] [address] , Giacomo Rudolph MD Social [...] st Contact Info) Description 03/14/2024 11:45 AM GERMAN INSTRUCTOR Office Visit [facility] [address] Marvin Mckeon MD [facility] [address] [place], [place] [address] 03/20/2024 11:30 AM GERMAN INSTRUCTOR Office Visit [facility] Family Medicine - [place] [address] [place] [phone] Abiodun Segura II, MD 100 [place] [address] documented as of this encounter Procedures Procedure Name Priority Date/Time Associated Diagnosis Comments CARDIOLOGY GENERIC 01/17/2016 10 :36 AM GERMAN INSTRUCTOR documented in this encounter Results * CARDIOLOGY GENERIC (01/17/2016 10:36 AM GERMAN INSTRUCTOR) 01/17/2016 10:3 6 AM GERMAN INSTRUCTOR Narrative [facility] RADIOLOGY - 01/17/2016 12:00 AM GERMAN INSTRUCTOR ? LENA YOUNGBLOOD MD: SNEHA BIRMINGHAM MD ?? Acct: [id number] ?? Admit/Service Date: 01/17/16 Discharge Date: ?? : 1970 Pt Type: REG SDC ?? Sex: F Ord [facility] ?Test Date: ?2016-01-17 ?? Pat Name: ? LENA YOUNGBLOOD ?Department: CARD ?? 40 ? Room: ? DSUR1 ?? Gender: ? Female ? Dicer Operator: ?? CKE ?? : ?1970 ? Requested By: SNEHA BIRMINGHAM ?? Order Number: [id number] ?Reading MD: ?? Oj Martinez ?Measurements ?? Intervals ?[place] ? Rate: ? 71 ? P: ?40 ?? FL: ? 180 ?QRS: ?11 ?? QRSD: ? 85 ? T: ?166 ?? QT: ? 393 ? QTc: ?428 ?Interpretive Statements ?? SINUS RHYTHM ?? MINIMAL VOLTAGE CRITERIA FOR LVH ?? NONSPECIFIC T-WAVE ABNORMALITY ?? Compared to ECG 01/02/2016 07:22:36 ?? No significant changes ?? AN INSTRUCTOR ? Procedure Note Oj Martinez MD - 01/17/2016 LENA YOUNGBLOOD Ordering MD: SNEHA BIRMINGHAM MD Acct: [id number] Admit/Service Date: 01/17/16 Discharge Date: : 1970 Pt Type: REG SDC Sex: F Ord Site: [address] Test Date: 2016-01-17 Pat Name: LENA FORD Department: CARD 40 Room: [facility] Gender: Female Dicer Operator: RAMBO : 1970 Requested By: SNEHA ESCAMILLA Order Number: [id number] Reading MD: Oj Martinez Measurements Intervals [place] Rate: 71 P: 40 FL: 180 QRS: 11 QRSD: 85 T: 166 QT: 393 QTc: 428 Interpretive Statements SINUS RHYTHM MINIMAL VOLTAGE CRITERIA FOR LVH NONSPECIFIC T-WAVE ABNORMALITY Compared to ECG 01/02/2016 07:22:36 No significant changes AN INSTRUCTOR us Generic Conversion Md [facility] Final Result [facility] RADIOLOGY documented in this encounter Visit Diagnoses Not on filedocumented in this encounter Care Teams Lumber Carrier Relationship Specialty Start Date End Date Jarred Rod MD PCP - General FAMILY PRACTICE 07/21/15 09/30/20 Crispin Gomez MD Three [facility]. [address] [address] [place] [employer] Aide INTERNAL MEDICINE 07/21/15 documented as of this encounter
--- OUTSIDE RECORDS SUMMARY | 2024-03-03 01:33 | XMS_ITS | Encounter Summary ---
Author Organization [facility] Address [address] [place] [address]. [place] [address] [place] [address] Care Team Providers Care Real Estate Agency Principal Name Role Phone Jarred Rod MD Primary Care Provider Unav ailCrispin Lloyd MD Unavailable [phone] Jarred Rod MD Primary Care Provider Unav ailJarred Hayden MD Primary Care Provider Unav ailable Jarred Rod MD Primary Care Provider Unav ailable Encounter Details Date Type Department Care Team (Late st Contact Info) Description 12/02/2012 Abstract [facility] [place] [address] Giacomo Galaviz MD Social History Tobacco Use [...] (Late Contact Info) Description 03/14/2024 11:45 AM SURVEYOR GEODETIC Office Visit [facility] [phone] Marvin Mckeon MD [facility] [address] [place] [address] 03/20/2024 11:30 AM SURVEYOR GEODETIC Office Visit [facility] Family Medicine - [place] 100 [place] [address] Abiodun Segura II, MD 100 [place] [address] documented as of this encounter Visit Diagnoses Diagnosis Closed fracture of metatarsal bone Closed fracture of metatarsal bone(s) documented in this encounter Care Teams Real Estate Agency Principal Relationship Specialty Start Date End Date Jarred Rod MD PCP - General FAMILY PRACTICE 07/21/15 09/30/20 Jarred Rod MD PCP - General 05/05/14 07/20/15 Jarred Rod MD PCP - General 03/03/13 05/04/14 Jarred Rod MD PCP - General 12/02/12 03/02/13 Crispin Gomez MD Three [facility]. [address] [place] [address] [place] Boiler Fireman INTERNAL MEDICINE 07/21/15 documented as of this encounter
--- OUTSIDE RECORDS SUMMARY | 2024-03-03 01:33 | XMS_ITS | Encounter Summary ---
Author Organization [facility] Address [address] [place] [address]. [place], [place] [address] [place] [address] Care Team Providers Care Machinist Automotive Name Role Phone Jarred Rod MD Primary Care Provider Unav ailable Crispin Gomez MD Unavailable Jarred Rod MD Primary Care Provider Unav ailable Encounter Details Date Type Department Care Team (Late st Contact Info) Description 05/05/2014 Emergency [facility] [place] [address] Cj Robles MD [address] [place] [address] Social History Tobacco Use Types Packs/Day [...] st Contact Info) Description 03/14/2024 11:45 AM ANGIO TECHNOLOGIST Office Visit [facility] [address] [facility]ke[facility] [address] [place] [address] 03/20/2024 11:30 AM ANGIO TECHNOLOGIST Office Visit [facility] Family Medicine - [place] [address] [place] [phone] Abiodun Segura II, MD [address] [place] [address] documented as of this encounter Visit Diagnoses Diagnosis Dizziness and giddiness documented in this encounter Care Teams Machinist Automotive Relationship Specialty Start Date End Date Jarred Rod MD PCP - General FAMILY PRACTICE 07/21/15 09/30/20 Jarred Rod MD PCP - General 05/05/14 07/20/15 Crispin Gomez MD Three [facility]. [address] [place] [address] [place] Animal Health Technician INTERNAL MEDICINE 07/21/15 documented as of this encounter
--- OUTSIDE RECORDS SUMMARY | 2024-03-03 01:33 | XMS_ITS | Encounter Summary ---
Author Organization [facility] Address [address] [place] [address]. [place] [address] [place] [address] Care Team Providers Care Non Destructive Testing Technician Name Role Phone Jarred Rod MD Primary Care Provider Unav Crispin Peres MD Unavailable [phone] Encounter Details Date Type Department Care Team (Late st Contact Info) Description 11/24/2015 Abstract [facility] [address] [facility] [place] [address] , Giacomo Rudolph MD Social [...] st Contact Info) Description 03/14/2024 11:45 AM GAME MASTER Office Visit [facility]-[address] [address] Marvin Mckeon MD Three [facility] [address] [place] [address] 03/20/2024 11:30 AM GAME MASTER Office Visit [facility] Medical Group Family Medicine - [place] 100 [place] [phone] Abiodun Segura II, MD [address] [place] [address] documented as of this encounter Visit Diagnoses Diagnosis Primary osteoarthritis, right ankle and foot documented in this encounter Care Teams Non Destructive Testing Technician Relationship Specialty Start Date End Date Jarred Rod MD PCP - General FAMILY PRACTICE 07/21/15 09/30/20 Crispin Gomez MD [facility] [address] [place] [address] [place] Tapping Machine Operator Automatic INTERNAL MEDICINE 07/21/15 documented as of this encounter
--- OUTSIDE RECORDS SUMMARY | 2024-03-03 01:33 | XMS_ITS | Encounter Summary ---
Author Organization [facility] Address [address] [place] [address]. [place] [address] [place] [address] Care Team Providers Care Administrative Services Officer Name Role Phone Jarred Rod MD Primary Care Provider UnaCrispin Myers MD Unavailable [phone] Encounter Details Date Type Department Care Team (Late st Contact Info) Description 01/02/2016 Orders Only [facility] [address] [place] [address] , Giacomo Rudolph MD Social [...] Contact Info) Description 03/14/2024 11:45 AM VP & GENERAL COUNSEL Office Visit [facility] [address] Marvin Mckeon MD [facility] [address] [place], [place] [address] 03/20/2024 11:30 AM VP & GENERAL COUNSEL Office Visit [facility] Family Medicine - [place] 100 [place] [phone] Abiodun Segura II, MD 100 [place] [address] documented as of this encounter Procedures Procedure Name Priority Date/Time Associated Diagnosis Comments CARDIOLOGY GENERIC 01/02/2016 7: 22 AM VP & GENERAL COUNSEL documented in this encounter Results * CARDIOLOGY GENERIC (01/02/2016 7:22 AM VP & GENERAL COUNSEL) 01/02/2016 7:22 AM VP & GENERAL COUNSEL Narrative [facility] RADIOLOGY - 01/02/2016 12:00 AM VP & GENERAL COUNSEL ? LENA YOUNGBLOOD MD: KENYA LEAVITT MD ?? Acct: [id number] ?? Admit/Service Date: 01/02/16 Discharge Date: ?? : 1970 Pt Type: REG ER ?? Sex: F Ord [facility] ?Test Date: ?2016-01-02 ?? Pat Name: ? LENA YOUNGBLOOD ?Department: CARD ?? 41 ? Room: ? EWA ?? Gender: ? Female ? Elderly Caregiver: ?? kg ?? : ?1970 ? Requested By: KENYA LEAVITT ?? Order Number: [id number] ?Reading MD: ?? Alexei Rodríguez ?Measurements ?? Intervals ?[place] ? Rate: ? 77 ? P: ?39 ?? DC: ? 190 ?QRS: ?19 ?? QRSD: ? 82 ? T: ?13 ?? QT: ? 398 ? QTc: ?452 ?Interpretive Statements ?? SINUS RHYTHM ?? NONSPECIFIC T-WAVE ABNORMALITY ?? Compared to ECG 08/20/2015 13:01:29 ?? No significant changes ?? DR. Kenya Leavitt ?? No ischemic changes ?? CRITICAL ALERT ISSUED ON 01-02-2016 7:25:06 ?? & GENERAL COUNSEL ? Procedure Note Alexei Rodríguez MD - 01/02/2016 LENA YOUNGBLOOD Ordering MD: KENYA LEAVITT MD Acct: [id number] Admit/Service Date: 01/02/16 Discharge Date: : 1970 Pt Type: REG ER Sex: F Ord Site: [address] Test Date: 2016-01-02 Pat Name: LENA YOUNGBLOOD Department: CARD 41 Room: [facility] Gender: Female Elderly Caregiver: : 1970 Requested By: KENYA FITZPATRICK Order Number: [id number] Reading MD: Alexei Rodríguez Measurements Intervals [place] Rate: 77 P: 39 DC: 190 QRS: 19 QRSD: 82 T: 13 QT: 398 QTc: 452 Interpretive Statements SINUS RHYTHM NONSPECIFIC T-WAVE ABNORMALITY Compared to ECG 08/20/2015 13:01:[address] Kenya Leavitt No ischemic changes CRITICAL ALERT ISSUED ON 01-02-2016 7:25:06 & GENERAL COUNSEL us Generic Conversion Md [facility] Final Result [facility] RADIOLOGY documented in this encounter Visit Diagnoses Not on filedocumented in this encounter Care Teams Administrative Services Officer Relationship Specialty Start Date End Date Jarred Rod MD PCP - General FAMILY PRACTICE 07/21/15 09/30/20 Crispin Gomez MD [address] [address] [place] Lead Software Architect INTERNAL MEDICINE 07/21/15 documented as of this encounter
--- OUTSIDE RECORDS SUMMARY | 2024-03-03 01:33 | XMS_ITS | Encounter Summary ---
Author Organization [facility] Address [address] [place] [address]. [place] [address] [place] [address] Care Team Providers Care Coordinator Mining Products Name Role Phone Jarred Rod MD Primary Care Provider Unav ailable Crispin Gomez MD Unavailable [phone] Jarred Rod MD Primary Care Provider Unav ailJarred Hayden MD Primary Care Provider Unav ailable Jarred Rod MD Primary Care Provider Unav ailable Jarred Rod MD Primary Care Provider Unav ailable Encounter Details Date Type Department Care Team (Late st Contact Info) Description 07/13/1993 Abstract [place] [address] , Generic Conversion, Social History [...] st Contact Info) Description 03/14/2024 11:45 AM ASTROPHYSICS PROFESSOR Office Visit [facility] [address] Marvin Mckeon MD [address] [facility] [address] [place] [address] 03/20/2024 11:30 AM ASTROPHYSICS PROFESSOR Office Visit [facility] Family Medicine - [place] 100 [place] [phone] Abiodun Segura II, MD 100 [place] [address] documented as of this encounter Visit Diagnoses Not on filedocumented in this encounter Care Teams Coordinator Mining Products Relationship Specialty Start Date End Date Jarred Rod MD PCP - General FAMILY PRACTICE 07/21/15 09/30/20 Jarred Rod MD PCP - General 05/05/14 07/20/15 Jarred Rod MD PCP - General 03/03/13 05/04/14 Jarred Rod MD PCP - General 12/02/12 03/02/13 Jarred Rod MD PCP - General 11/07/12 12/01/12 Crispin Gomez MD [facility] [address] [place] [address] [place] Supervisor [employer] INTERNAL MEDICINE 07/21/15 documented as of this encounter
--- OUTSIDE RECORDS SUMMARY | 2024-03-03 01:33 | XMS_ITS | Encounter Summary ---
Author Organization [facility] Address [address] [place] [address]. [place] [address] [place] [address] Care Team Providers Care Sap Senior Developer Name Role Phone Jarred Rod MD Primary Care Provider Unav ailable Crispin Gomez MD Unavailable [phone] Jarred Rod MD Primary Care Provider Unav ailJarred Hayden MD Primary Care Provider Unav ailable Jarred Rod MD Primary Care Provider Unav ailable Jarred Rod MD Primary Care Provider Unav ailable Encounter Details Date Type Department Care Team (Late st Contact Info) Description 04/17/2006 Emergency [facility] [place] [address] Giacomo Galaviz MD Social History [...] st Contact Info) Description 03/14/2024 11:45 AM COFOUNDER Office Visit [facility] [address] Marvin Mckeon MD [address] [facility] [address] [place] [address] 03/20/2024 11:30 AM COFOUNDER Office Visit [facility] Medical [facility] Family Medicine - [place] 100 [place] [phone] Abiodun Segura II, MD 100 [place] [address] documented as of this encounter Visit Diagnoses Not on filedocumented in this encounter Care Teams Sap Senior Developer Relationship Specialty Start Date End Date Jarred Rod MD PCP - General FAMILY PRACTICE 07/21/15 09/30/20 Jarred Rod MD PCP - General 05/05/14 07/20/15 Jarred Rod MD PCP - General 03/03/13 05/04/14 Jarred Rod MD PCP - General 12/02/12 03/02/13 Jarred Rod MD PCP - General 11/07/12 12/01/12 Crispin Gomez MD Three [facility] [place] [address] [place] Cider Maker INTERNAL MEDICINE 07/21/15 documented as of this encounter
--- OUTSIDE RECORDS SUMMARY | 2024-03-03 01:33 | XMS_ITS | Encounter Summary ---
Author Organization [facility] Address [address] [place] [address]. [place], [place] [address] [place] [address] Care Team Providers Care Business Writer Name Role Phone Jarred Rod MD Primary Care Provider Unav ailable Crispin Gomez MD Unavailable Jarred Rod MD Primary Care Provider Unav ailable Jarred Rod MD Primary Care Provider Unav ailable Encounter Details Date Type Department Care Team (Late st Contact Info) Description 03/03/2013 Abstract [facility] [place] [address] Jarred Rod MD Social History Tobacco Use [...] (Late Contact Info) Description 03/14/2024 11:45 AM SHOE STICKS REPAIRER Office Visit [facility] [address] Marvin Mckeon MD Three [facility] [address] [place] [address] 03/20/2024 11:30 AM SHOE STICKS REPAIRER Office Visit [facility] Family Medicine - [place] 100 [place] [phone] Abiodun Segura II, MD 100 [place] [address] documented as of this encounter Visit Diagnoses Diagnosis Pain in soft tissues of limb Pain in limb documented in this encounter Care Teams Business Writer Relationship Specialty Start Date End Date Jarred Rod MD PCP - General FAMILY PRACTICE 07/21/15 09/30/20 Jarred Rod MD PCP - General 05/05/14 07/20/15 Jarred Rod MD PCP - General 03/03/13 05/04/14 Crispin Gomez MD Three [facility]. [address] [place] [address] [place] Legal Support Assistant INTERNAL MEDICINE 07/21/15 documented as of this encounter
--- OUTSIDE RECORDS SUMMARY | 2024-03-03 01:33 | XMS_ITS | Encounter Summary ---
Author Organization [facility] Address [address] [place] [address]. [place] [address] [place] [address] Care Team Providers Care Manager Home Improvement Name Role Phone Jarred Rod MD Primary Care Provider Unav ailable Crispin Gomez MD Unavailable [phone] Jarred Rod MD Primary Care Provider Unav ailJarred Hayden MD Primary Care Provider Unav ailable Jarred Rod MD Primary Care Provider Unav ailable Jarred Rod MD Primary Care Provider Unav ailable Encounter Details Date Type Department Care Team (Late st Contact Info) Description 11/07/2005 Abstract [facility] Diagnostic Imaging [address] [place], [place] [phone] Juan Luevano MD Social History Tobacco Use [...] Contact Info) Description 03/14/2024 11:45 AM CLINICAL SUPPORT SPECIALIST Office Visit [facility] [address] Marvin Mckeon MD Three [facility] [place] [address] 03/20/2024 11:30 AM CLINICAL SUPPORT SPECIALIST Office Visit [facility] Family Medicine - [place] 100 [place] [phone] Abiodun Segura II, MD 100 [place] [address] documented as of this encounter Visit Diagnoses Not on filedocumented in this encounter Care Teams Manager Home Improvement Relationship Specialty Start Date End Date Jarred Rod MD PCP - General FAMILY PRACTICE 07/21/15 09/30/20 Jarred Rod MD PCP - General 05/05/14 07/20/15 Jarred Rod MD PCP - General 03/03/13 05/04/14 Jarred Rod MD PCP - General 12/02/12 03/02/13 Jarred Rod MD PCP - General 11/07/12 12/01/12 Crispin Gomez MD Three [facility]. DAVID [address] [place] [address] [place] Cutting Machine Operator Helper INTERNAL MEDICINE 07/21/15 documented as of this encounter
--- OUTSIDE RECORDS SUMMARY | 2024-03-03 01:33 | XMS_ITS | Encounter Summary ---
Author Organization [facility] Address [address] [place] [address]. [place] [address] [place] [address] Care Team Providers Care Hogshead Wrecker Name Role Phone Jarred Rod MD Primary Care Provider Unav ailable Crispin Gomez MD Unavailable [phone] Jarred Rod MD Primary Care Provider Unav ailJarred Hayden MD Primary Care Provider Unav ailable Jarred oRd MD Primary Care Provider Unav ailable Jarred Rod MD Primary Care Provider Unav ailable Encounter Details Date Type Department Care Team (Late st Contact Info) Description 11/17/1999 Emergency [facility] [place] [address] Giacomo Galaviz MD Social History [...] st Contact Info) Description 03/14/2024 11:45 AM TABLE CUT OFF SAW OPERATOR Office Visit [facility] [address] Marvin Mckeon MD [address] [facility] [address] [place] [address] 03/20/2024 11:30 AM TABLE CUT OFF SAW OPERATOR Office Visit [facility] Medical Group Family Medicine - [place] 100 [place] [phone] Abiodun Segura II, MD 100 [place] [address] documented as of this encounter Visit Diagnoses Not on filedocumented in this encounter Care Teams Hogshead Wrecker Relationship Specialty Start Date End Date Jarred Rod MD PCP - General FAMILY PRACTICE 07/21/15 09/30/20 Jarred Rod MD PCP - General 05/05/14 07/20/15 Jarred Rod MD PCP - General 03/03/13 05/04/14 Jarred Rod MD PCP - General 12/02/12 03/02/13 Jarred Rod MD PCP - General 11/07/12 12/01/12 Crispin Gomez MD [facility] [place] [address] [place] Engraver Wood INTERNAL MEDICINE 07/21/15 documented as of this encounter
--- OUTSIDE RECORDS SUMMARY | 2024-03-03 01:33 | XMS_ITS | Encounter Summary ---
Author Organization [facility] Address [address] [place] [address]. [place] [address] [place] [address] Care Team Providers Care Link Fabric Machine Operator Name Role Phone Jarred Rod MD Primary Care Provider Unav ailable Crispin Gomez MD Unavailable [phone] Jarred Rod MD Primary Care Provider Unav ailJarred Hayden MD Primary Care Provider Unav ailable Jarred Rod MD Primary Care Provider Unav ailable Jarred Rod MD Primary Care Provider Unav ailable Encounter Details Date Type Department Care Team (Late st Contact Info) Description 12/25/2005 Abstract [facility] [address] [place], [place] [phone] Giacomo Galaviz MD Social History Tobacco Use [...] Contact Info) Description 03/14/2024 11:45 AM ASSOCIATE PRODUCER Office Visit [facility]-[address] [address] Marvin Mckeon MD [address] [facility] [address] [place] [address] 03/20/2024 11:30 AM ASSOCIATE PRODUCER Office Visit [facility] Family Medicine - [place] 100 [place] [phone] Abiodun Segura II, MD 100 [place] [address] documented as of this encounter Visit Diagnoses Not on filedocumented in this encounter Care Teams Link Fabric Machine Operator Relationship Specialty Start Date End Date Jarred Rod MD PCP - General FAMILY PRACTICE 07/21/15 09/30/20 Jarred Rod MD PCP - General 05/05/14 07/20/15 Jarred Rod MD PCP - General 03/03/13 05/04/14 Jarred Rod MD PCP - General 12/02/12 03/02/13 Jarred Rod MD PCP - General 11/07/12 12/01/12 Crispin Gomez MD [facility] [place] [address] [place] Glue Sprayer INTERNAL MEDICINE 07/21/15 documented as of this encounter
--- OUTSIDE RECORDS SUMMARY | 2024-03-03 01:33 | XMS_ITS | Encounter Summary ---
Author Organization [facility] Address [address] [place] [address]. [place] [address] [place] [address] Care Team Providers Care Claims Configuration Analyst Name Role Phone Jarred Rod MD Primary Care Provider Unav Crispin Peres MD Unavailable [phone] Encounter Details Date Type Department Care Team (Late st Contact Info) Description 12/20/2015 Abstract [facility] [place] [place] [address] Jarred Rod MD Social History [...] Contact Info) Description 03/14/2024 11:45 AM INDUSTRIAL TECHNOLOGIST Office Visit [facility] [address] Marvin Mckeon MD [facility] [address] [place], [place] [address] 03/20/2024 11:30 AM INDUSTRIAL TECHNOLOGIST Office Visit [facility] Medical [facility] Family Medicine - [place] 100 [place] [phone] Abiodun Segura II, MD 100 [place] [address] documented as of this encounter Visit Diagnoses Diagnosis Spondylolysis, sacral and sacrococcygeal region documented in this encounter Care Teams Claims Configuration Analyst Relationship Specialty Start Date End Date Jarred Rod MD PCP - General FAMILY PRACTICE 07/21/15 09/30/20 Crispin Gomez MD [facility] [address] [place] [address] Ferm[place] Jalousies Installer INTERNAL MEDICINE 07/21/15 documented as of this encounter
--- OUTSIDE RECORDS SUMMARY | 2024-03-03 01:33 | XMS_ITS | Encounter Summary ---
Author Organization [facility] Address [address] [place] [address]. [place] [address] [place] [address] Care Team Providers Care Shells Inspector Name Role Phone Jarred Rod MD Primary Care Provider Unav ailable Crispin Gomez MD Unavailable [phone] Jarred Rod MD Primary Care Provider Unav ailJarred Hayden MD Primary Care Provider Unav ailable Jarred Rod MD Primary Care Provider Unav ailable Jarred Rod MD Primary Care Provider Unav ailable Encounter Details Date Type Department Care Team (Late st Contact Info) Description 03/02/1990 Abstract [place] [address] , Generic Conversion, Social History [...] Info) Description 03/14/2024 11:45 AM ENVIRONMENTAL HEALTH SANITARIAN Office Visit [facility]-[address] [address] Marvin Mckeon MD [address] [facility] [address] [place] [address] 03/20/2024 11:30 AM ENVIRONMENTAL HEALTH SANITARIAN Office Visit [facility] Medical Group Family Medicine - [place] 100 [place] [phone] Abiodun Segura II, MD 100 [place] [address] documented as of this encounter Visit Diagnoses Not on filedocumented in this encounter Care Teams Shells Inspector Relationship Specialty Start Date End Date Jarred Rod MD PCP - General FAMILY PRACTICE 07/21/15 09/30/20 Jarred Rod MD PCP - General 05/05/14 07/20/15 Jarred Rod MD PCP - General 03/03/13 05/04/14 Jarred Rod MD PCP - General 12/02/12 03/02/13 Jarred Rod MD PCP - General 11/07/12 12/01/12 Crispin Gomez MD [facility] [address] [place] [address] [place] Nail Kegger INTERNAL MEDICINE 07/21/15 documented as of this encounter
--- OUTSIDE RECORDS SUMMARY | 2024-03-03 01:33 | XMS_ITS | Encounter Summary ---
Author Organization [facility] Address [address] [place] [address]. [place] [address] [place] [address] Care Team Providers Care Specimen Technician Name Role Phone Jarred Rod MD Primary Care Provider Unav ailable Crispin Gomez MD Unavailable [phone] Jarred Rod MD Primary Care Provider Unav ailJarred Hayden MD Primary Care Provider Unav ailable Jarred Rod MD Primary Care Provider Unav ailable Jarred Rod MD Primary Care Provider Unav ailable Encounter Details Date Type Department Care Team (Late st Contact Info) Description 08/26/2003 Abstract [facility] Med/Surg 3rd Floor [place] [employer], [place] [address] Giacomo Galaviz MD Social History Tobacco Use [...] st Contact Info) Description 03/14/2024 11:45 AM ARMATURE CONNECTOR Office Visit [facility] [address] Marvin Mckeon MD [facility] [address] [place] [address] 03/20/2024 11:30 AM ARMATURE CONNECTOR Office Visit [facility] Family Medicine - [place] 100 [place] [phone] Abiodun Segura II, MD 100 [place] [address] documented as of this encounter Visit Diagnoses Not on filedocumented in this encounter Care Teams Specimen Technician Relationship Specialty Start Date End Date Jarred Rod MD PCP - General FAMILY PRACTICE 07/21/15 09/30/20 Jarred Rod MD PCP - General 05/05/14 07/20/15 Jarred Rod MD PCP - General 03/03/13 05/04/14 Jarred Rod MD PCP - General 12/02/12 03/02/13 Jarred Rod MD PCP - General 11/07/12 12/01/12 Crispin Gomez MD Three [facility]. DAVID [address] [place] [address] [address] INTERNAL MEDICINE 07/21/15 documented as of this encounter
--- OUTSIDE RECORDS SUMMARY | 2024-03-03 01:33 | XMS_ITS | Encounter Summary ---
Author Organization [facility] Address [address] [place] [address]. [place] [address] [place] [address] Care Team Providers Care Lockstitch Binder Name Role Phone Jarred Rod MD Primary Care Provider UnaCrispin Myers MD Unavailable [phone] Encounter Details Date Type Department Care Team (Late st Contact Info) Description 08/20/2015 Orders Only [facility] [address] [place] [address] , Giacomo Rudolph MD Social [...] Contact Info) Description 03/14/2024 11:45 AM GAS PROCESSING PLANT OPERATOR Office Visit [facility] [address] Marvin Mckeon MD [facility] [address] [place] [address] 03/20/2024 11:30 AM GAS PROCESSING PLANT OPERATOR Office Visit [facility] Medical Group Family Medicine - [place] 100 [place] [phone] Abiodun Segura II, MD 100 [place] [address] documented as of this encounter Procedures Procedure Name Priority Date/Time Associated Diagnosis Comments CARDIOLOGY GENERIC 08/20/2015 1: 01 PM CDT documented in this encounter Results * CARDIOLOGY GENERIC (08/20/2015 1:01 PM CDT) 08/20/2015 1:01 PM CDT Narrative [facility] RADIOLOGY - 08/20/2015 12:00 AM CDT ? LENA YOUNGBLOOD MD: SISI SOLIZ MD ?? Acct: [id number] ?? Admit/Service Date: 08/20/15 Discharge Date: 08/20/15 ?? : 1970 Pt Type: DEP ER ?? Sex: F Ord [facility] ?[address] ?Test Date: ?2015-08-20 ?? Pat Name: ? LENA YOUNGBLOOD ?Department: CARD ?? 41 ? Room: ? EWA ?? Gender: ? Female ? Wagon Winder: ?? lmw ?? : ?1970 ? Requested By: SISI SOLIZ ?? Order Number: [id number] ?Reading MD: ?? Alexei Anne ?Measurements ?? Intervals ?[place] ? Rate: ? 92 ? P: ?46 ?? IA: ? 159 ?QRS: ?18 ?? QRSD: ? [...] YOUNGBLOOD Ordering MD: SISI SOLIZ MD Acct: [id number] Admit/Service Date: 08/20/15 Discharge Date: 08/20/15 : 1970 Pt Type: DEP ER Sex: F Ord Site: [address] Test Date: 2015-08-20 Pat Name: LENA PERRY Department: CARD 41 Room: [facility] Gender: Female Wagon Winder: alana : 1970 Requested By: SISI SOLIZ Order Number: [id number] Reading MD: Alexei Rodríguez Measurements Intervals [place] Rate: 92 P: 46 IA: 159 QRS: 18 QRSD: 81 T: 22 QT: 351 QTc: 435 Interpretive Statements SINUS RHYTHM MODERATE VOLTAGE CRITERIA FOR LVH, CONSIDER NORMAL VARIANT NONSPECIFIC T-WAVE ABNORMALITY Compared to ECG 05/05/2014 01:21:28 No significant changes No ischemic changes Preliminary EKG interpretation by ED Physician CRITICAL ALERT ISSUED ON 08-20-2015 13:06:37 us Generic Conversion Md [facility] Final Result [facility] RADIOLOGY documented in this encounter Visit Diagnoses Not on filedocumented in this encounter Care Teams Lockstitch Binder Relationship Specialty Start Date End Date Jarred Rod MD PCP - General FAMILY PRACTICE 07/21/15 09/30/20 Crispin Gomez MD Three [facility]. [address] [address] [place] Advice Nurse INTERNAL MEDICINE 07/21/15 documented as of this encounter
--- OUTSIDE RECORDS SUMMARY | 2024-03-03 01:33 | XMS_ITS | Encounter Summary ---
Author Organization [facility] Address [address] [place] [address]. [place] [address] [place] [address] Care Team Providers Care Steerer Name Role Phone Jarred Rod MD Primary Care Provider Unav ailable Crispin Gomez MD Unavailable [phone] Jarred Rod MD Primary Care Provider Unav ailJarred Hayden MD Primary Care Provider Unav ailable Jarred Rod MD Primary Care Provider Unav ailable Jarred Rod MD Primary Care Provider Unav ailable Encounter Details Date Type Department Care Team (Late st Contact Info) Description 02/24/1993 Abstract [place] [address] , Generic Conversion, Social History [...] st Contact Info) Description 03/14/2024 11:45 AM MILLER HELPER DISTILLERY Office Visit [facility] [address] Marvin Mckeon MD Three [facility] [address] [place] [address] 03/20/2024 11:30 AM MILLER HELPER DISTILLERY Office Visit [facility] Family Medicine - [place] 100 [place] [phone] Abiodun Segura II, MD 100 [place] [address] documented as of this encounter Visit Diagnoses Not on filedocumented in this encounter Care Teams Steerer Relationship Specialty Start Date End Date Jarred Rod MD PCP - General FAMILY PRACTICE 07/21/15 09/30/20 Jarred Rod MD PCP - General 05/05/14 07/20/15 Jarred Rod MD PCP - General 03/03/13 05/04/14 Jarred Rod MD PCP - General 12/02/12 03/02/13 Jarred Rod MD PCP - General 11/07/12 12/01/12 Crispin Gomez MD [facility] [address] [place] [address] [place] Flanging Roll Operator INTERNAL MEDICINE 07/21/15 documented as of this encounter
--- OUTSIDE RECORDS SUMMARY | 2024-03-03 01:33 | XMS_ITS | Encounter Summary ---
Author Organization [facility] Address [address] [place] [address]. [place] [address] [place] [address] Care Team Providers Care Sand Screener Name Role Phone Jarred Rod MD Primary Care Provider Unav ailable Crispin Gomez MD Unavailable [phone] Jarred Rod MD Primary Care Provider Unav ailJarred Hayden MD Primary Care Provider Unav ailable Jarred Rod MD Primary Care Provider Unav ailable Jarred Rod MD Primary Care Provider Unav ailable Encounter Details Date Type Department Care Team (Late st Contact Info) Description 02/17/1993 Abstract [place] [address] , Generic Conversion, Social History [...] st Contact Info) Description 03/14/2024 11:45 AM COLLECTION SYSTEMS MODELER Office Visit [facility] [address] Marvin Mckeon MD Three [facility] [address] [place] [address] 03/20/2024 11:30 AM COLLECTION SYSTEMS MODELER Office Visit [facility] Family Medicine - [place] 100 [place] [phone] Abiodun Segura II, MD 100 [place] [address] documented as of this encounter Visit Diagnoses Not on filedocumented in this encounter Care Teams Sand Screener Relationship Specialty Start Date End Date Jarred Rod MD PCP - General FAMILY PRACTICE 07/21/15 09/30/20 Jarred Rod MD PCP - General 05/05/14 07/20/15 Jarred Rod MD PCP - General 03/03/13 05/04/14 Jarred Rod MD PCP - General 12/02/12 03/02/13 Jarred Rod MD PCP - General 11/07/12 12/01/12 Crispin Gomez MD [facility] [address] [place] [address] Aurora Cook'S Assistant INTERNAL MEDICINE 07/21/15 documented as of this encounter
--- OUTSIDE RECORDS SUMMARY | 2024-03-03 01:33 | XMS_ITS | Encounter Summary ---
Author Organization [facility] Address [address] [place] [address]. [place] [address] [place] [address] Care Team Providers Care Shoe Parts Caser Name Role Phone Jarred Rod MD Primary Care Provider Unav ailable Crispin Gomez MD Unavailable [phone] Jarred Rod MD Primary Care Provider Unav ailJarred Hayden MD Primary Care Provider Unav ailable Jarred Rod MD Primary Care Provider Unav ailable Jarred Rod MD Primary Care Provider Unav ailable Encounter Details Date Type Department Care Team (Late st Contact Info) Description 10/17/1991 Abstract [place] [address] , Generic Conversion, Social History [...] Contact Info) Description 03/14/2024 11:45 AM FIELD OPERATIONS MANAGER Office Visit [facility] [address] Marvin Mckeon MD Three [facility] [address] [place] [address] 03/20/2024 11:30 AM FIELD OPERATIONS MANAGER Office Visit [facility] Family Medicine - [place] 100 [place] [phone] Abiodun Segura II, MD 100 [place] [address] documented as of this encounter Visit Diagnoses Not on filedocumented in this encounter Care Teams Shoe Parts Caser Relationship Specialty Start Date End Date Jarred Rod MD PCP - General FAMILY PRACTICE 07/21/15 09/30/20 Jarred Rod MD PCP - General 05/05/14 07/20/15 Jarred Rod MD PCP - General 03/03/13 05/04/14 Jarred Rod MD PCP - General 12/02/12 03/02/13 Jarred Rod MD PCP - General 11/07/12 12/01/12 Crispin Gomez MD Three [facility] [address] [place] [address] [place] Tour Driver INTERNAL MEDICINE 07/21/15 documented as of this encounter
--- OUTSIDE RECORDS SUMMARY | 2024-03-03 01:33 | XMS_ITS | Encounter Summary ---
Author Organization [facility] Address [address] [place] [address]. [place] [address] [place] [address] Care Team Providers Care Director Of Safety And Security Name Role Phone Jarred Rod MD Primary Care Provider UnaCrispin Myers MD Unavailable Encounter Details Date Type Department Care Team (Late st Contact Info) Description 01/04/2016 Abstract [facility] [place] [address] Joel Santiago MD [address] [place] [phone] Social History Tobacco Use Types Packs/Day Years [...] Contact Info) Description 03/14/2024 11:45 AM GLASS SCIENCE ENGINEER Office Visit [facility] [address] Marvin Mckeon MD Three [facility] [address] [place] [address] 03/20/2024 11:30 AM GLASS SCIENCE ENGINEER Office Visit [facility] Family Medicine - [place] 100 [place] [phone] Abiodun Segura II, MD 100 [place] [address] documented as of this encounter Visit Diagnoses Diagnosis Persons encountering health services in other specified circumstances documented in this encounter Care Teams Director Of Safety And Security Relationship Specialty Start Date End Date Jarred Rod MD PCP - General FAMILY PRACTICE 07/21/15 09/30/20 Crispin Gomez MD Three [facility]. [address] [place] [address] [place] Composite Assembler INTERNAL MEDICINE 07/21/15 documented as of this encounter
--- OUTSIDE RECORDS SUMMARY | 2024-03-03 01:33 | XMS_ITS | Encounter Summary ---
Author Organization [facility] Address [address] [place] [address]. [place] [address] [place] [address] Care Team Providers Care Vp Communications Name Role Phone Jarred Rod MD Primary Care Provider Unav ailable Crispin Gomez MD Unavailable [phone] Jarred Rod MD Primary Care Provider Unav ailJarred Hayden MD Primary Care Provider Unav ailable Jarred Rod MD Primary Care Provider Unav ailable Jarred Rod MD Primary Care Provider Unav ailable Encounter Details Date Type Department Care Team (Late st Contact Info) Description 07/11/1993 Abstract [place] [address] , Generic Conversion, Social History [...] Contact Info) Description 03/14/2024 11:45 AM PRESS SET UP Office Visit [facility] [address] Marvin Mckeon MD Three [facility] [address] [place] [address] 03/20/2024 11:30 AM PRESS SET UP Office Visit [facility] Family Medicine - [place] 100 [place] [phone] Abiodun Segura II, MD 100 [place] [address] documented as of this encounter Visit Diagnoses Not on filedocumented in this encounter Care Teams Vp Communications Relationship Specialty Start Date End Date Jarred Rod MD PCP - General FAMILY PRACTICE 07/21/15 09/30/20 Jarred Rod MD PCP - General 05/05/14 07/20/15 Jarred Rod MD PCP - General 03/03/13 05/04/14 Jarred Rod MD PCP - General 12/02/12 03/02/13 Jarred Rod MD PCP - General 11/07/12 12/01/12 Crispin Gomez MD Three [facility] [address] [place] [address] Tower Jute Bag Clipper INTERNAL MEDICINE 07/21/15 documented as of this encounter
--- OUTSIDE RECORDS SUMMARY | 2024-03-03 01:33 | XMS_ITS | Encounter Summary ---
Author Organization [facility] Address [address] [place] [address]. [place] [address] [place] [address] Care Team Providers Care Security Specialist Name Role Phone Jarred Rod MD Primary Care Provider Unav ailable Crispin Gomez MD Unavailable [phone] Jarred Rod MD Primary Care Provider Unav ailJarred Hayden MD Primary Care Provider Unav ailable Jarred Rod MD Primary Care Provider Unav ailable Jarred Rod MD Primary Care Provider Unav ailable Encounter Details Date Type Department Care Team (Late st Contact Info) Description 04/13/1993 Abstract [place] [address] , Generic Conversion, Social History [...] st Contact Info) Description 03/14/2024 11:45 AM MATRIX BATH ATTENDANT Office Visit [facility]-[address] [address] Marvin Mckeon MD [address] [facility] [address] [place] [address] 03/20/2024 11:30 AM MATRIX BATH ATTENDANT Office Visit [facility] Family Medicine - [place] 100 [place] [phone] Abiodun Segura II, MD 100 [place] [address] documented as of this encounter Visit Diagnoses Not on filedocumented in this encounter Care Teams Security Specialist Relationship Specialty Start Date End Date Jarred Rod MD PCP - General FAMILY PRACTICE 07/21/15 09/30/20 Jarred Rod MD PCP - General 05/05/14 07/20/15 Jarred Rod MD PCP - General 03/03/13 05/04/14 Jarred Rod MD PCP - General 12/02/12 03/02/13 Jarred Rod MD PCP - General 11/07/12 12/01/12 Crispin Gomez MD [facility] [address] [place] [address] Pound Physician Scientist INTERNAL MEDICINE 07/21/15 documented as of this encounter
--- OUTSIDE RECORDS SUMMARY | 2024-03-03 01:33 | XMS_ITS | Encounter Summary ---
Author Organization [facility] Address [address] [place] [address]. [place] [address] [place] [address] Care Team Providers Care Railcar Foreman Name Role Phone Jarred Rod MD Primary Care Provider UnaCrispin Myers MD Unavailable [phone] Encounter Details Date Type Department Care Team (Late st Contact Info) Description 12/24/2015 Abstract [facility] [address] [facility] [address] Jarred Rod MD Social History [...] st Contact Info) Description 03/14/2024 11:45 AM CUT PRESS OPERATOR Office Visit [facility]-[address] [address] Marvin Mckeon MD Three [facility] [address] [place], [place] [phone] 03/20/2024 11:30 AM CUT PRESS OPERATOR Office Visit [facility] Family Medicine - [place] 100 [place] [phone] Abiodun Segura II, MD 100 [place] [address] documented as of this encounter Visit Diagnoses Diagnosis Other specified disorders of kidney and ureter documented in this encounter Care Teams Railcar Foreman Relationship Specialty Start Date End Date Jarred Rod MD PCP - General FAMILY PRACTICE 07/21/15 09/30/20 Crispin Gomez MD [address] [address] [place] Interior Mechanic INTERNAL MEDICINE 07/21/15 documented as of this encounter
--- OUTSIDE RECORDS SUMMARY | 2024-03-03 01:33 | XMS_ITS | Encounter Summary ---
Author Organization [facility] Address [address] [place] [address]. [place] [address] [place] [address] Care Team Providers Care Jig Filler Name Role Phone Jarred Rod MD Primary Care Provider Unav Crispin [place] MD Unavailable [phone] Encounter Details Date Type Department Care Team (Late st Contact Info) Description 12/23/[address] [place] [facility] [place] [address] Joel Santiago MD [address] [place] [address] Social History Tobacco Use Types Packs/Day [...] Contact Info) Description 03/14/2024 11:45 AM DIRECTOR RISK Office Visit [facility]-[address] [address] Marvin Mckeon MD [address] [place] [address] 03/20/2024 11:30 AM DIRECTOR RISK Office Visit [facility] Family Medicine - [place] 100 [place] [phone] Abiodun Segura II, MD 100 [place] [address] documented as of this encounter Visit Diagnoses Diagnosis Muscle wasting and atrophy, not elsewhere classified, left ankle and foot documented in this encounter Care Teams Jig Filler Relationship Specialty Start Date End Date Jarred Rod MD PCP - General FAMILY PRACTICE 07/21/15 09/30/20 Crispin Gomez MD [facility]. [address] [place] [address] [place] Referral Clerk INTERNAL MEDICINE 07/21/15 documented as of this encounter
--- OUTSIDE RECORDS SUMMARY | 2024-03-03 01:33 | XMS_ITS | Encounter Summary ---
Author Organization [facility] Address [address] [place] [address]. [place] [address] [place] [address] Care Team Providers Care Overhead Garage Door Hanger Name Role Phone Jarred Rod MD Primary Care Provider Unav ailable Crispin Gomez MD Unavailable [phone] Jarred Rod MD Primary Care Provider Unav ailJarred Hayden MD Primary Care Provider Unav ailable Jarred Rod MD Primary Care Provider Unav ailable Jarred Rod MD Primary Care Provider Unav ailable Encounter Details Date Type Department Care Team (Late st Contact Info) Description 01/14/1992 Abstract [place] [address] , Generic Conversion, Social History [...] st Contact Info) Description 03/14/2024 11:45 AM DIETARY SERVICES DIRECTOR Office Visit [facility]-[address] [address] Marvin Mckeon MD Three [facility] [address] [place] [address] 03/20/2024 11:30 AM DIETARY SERVICES DIRECTOR Office Visit [facility] Family Medicine - [place] 100 [place] [phone] Abiodun Segura II, MD 100 [place] [address] documented as of this encounter Visit Diagnoses Not on filedocumented in this encounter Care Teams Overhead Garage Door Hanger Relationship Specialty Start Date End Date Jarred Rod MD PCP - General FAMILY PRACTICE 07/21/15 09/30/20 Jarred Rod MD PCP - General 05/05/14 07/20/15 Jarred Rod MD PCP - General 03/03/13 05/04/14 Jarred Rod MD PCP - General 12/02/12 03/02/13 Jarred Rod MD PCP - General 11/07/12 12/01/12 Crispin Gomez MD Three [facility] [address] [place] [address] Lowell Net Programmer INTERNAL MEDICINE 07/21/15 documented as of this encounter
--- OUTSIDE RECORDS SUMMARY | 2024-03-03 01:33 | XMS_ITS | Encounter Summary ---
Author Organization [facility] Address [address] [place] [address]. [place], [place] [address] [place] [address] Care Team Providers Care Boring Inspector Name Role Phone Jarred Rod MD Primary Care Provider Unav ailable Crispin Gomez MD Unavailable [phone] Jarred Rod MD Primary Care Provider Unav ailable Jarred Rod MD Primary Care Provider Unav ailable Jarred Rod MD Primary Care Provider Unav ailable Jarred Rod MD Primary Care Provider Unav ailable Encounter Details Date Type Department Care Team (Late st Contact Info) Description 05/08/[address] [facility] Emergency Room ONE [place], [place] [id number] Nick Augustin MD [address] [address] Social History Tobacco Use Types Packs/Day Years [...] Contact Info) Description 03/14/2024 11:45 AM ASBESTOS TEXTILE SUPERVISOR Office Visit [facility] [address] Marvin Mckeon MD Three [facility] [address] [place] [address] 03/20/2024 11:30 AM ASBESTOS TEXTILE SUPERVISOR Office Visit [facility] Family Medicine - [place] 100 [place] [phone] Abiodun Segura II, MD 100 [place], [place] [phone] documented as of this encounter Visit Diagnoses Not on filedocumented in this encounter Care Teams Boring Inspector Relationship Specialty Start Date End Date Jarred Rod MD PCP - General FAMILY PRACTICE 07/21/15 09/30/20 Jarred Rod MD PCP - General 05/05/14 07/20/15 Jarred Rod MD PCP - General 03/03/13 05/04/14 Jarred Rod MD PCP - General 12/02/12 03/02/13 Jarred Rod MD PCP - General 11/07/12 12/01/12 Crispin Gomez MD Three [facility]. [address] [place], [place] [phone] [place] Radiographer Mammographer INTERNAL MEDICINE 07/21/15 documented as of this encounter
--- OUTSIDE RECORDS SUMMARY | 2024-03-03 01:33 | XMS_ITS | Encounter Summary ---
Author Organization [facility] Address [address] [place] [address]. [place] [address] [place] [address] Care Team Providers Care Caustic Room Operator Name Role Phone Jarred Rod MD Primary Care Provider Unav ailable Crispin Gomez MD Unavailable [phone] Jarred Rod MD Primary Care Provider Unav ailJarred Hayden MD Primary Care Provider Unav ailable Jarred Rod MD Primary Care Provider Unav ailable Jarred Rod MD Primary Care Provider Unav ailable Encounter Details Date Type Department Care Team (Late st Contact Info) Description 01/07/1993 Abstract [place] [address] , Generic Conversion, Social History [...] st Contact Info) Description 03/14/2024 11:45 AM TRANSMISSION CALIBRATION ENGINEER Office Visit [facility]-[address] [address] Marvin Mckeon MD Three [facility] [address] [place] [address] 03/20/2024 11:30 AM TRANSMISSION CALIBRATION ENGINEER Office Visit [facility] Family Medicine - [place] 100 [place] [phone] Abiodun Segura II, MD 100 [place] [address] documented as of this encounter Visit Diagnoses Not on filedocumented in this encounter Care Teams Caustic Room Operator Relationship Specialty Start Date End Date Jarred Rod MD PCP - General FAMILY PRACTICE 07/21/15 09/30/20 Jarred Rod MD PCP - General 05/05/14 07/20/15 Jarred Rod MD PCP - General 03/03/13 05/04/14 Jarred Rod MD PCP - General 12/02/12 03/02/13 Jarred Rod MD PCP - General 11/07/12 12/01/12 Crispin Gomez MD Three [facility] [address] [place] [address] [place] Woodwind Instrument Repairer INTERNAL MEDICINE 07/21/15 documented as of this encounter
--- OUTSIDE RECORDS SUMMARY | 2024-03-03 01:33 | XMS_ITS | Encounter Summary ---
Author Organization [facility] Address [address] [place] [address]. [place] [address] [place] [address] Care Team Providers Care Painting Worker Name Role Phone Jarred Rod MD Primary Care Provider Unav ailable Crispin Gomez MD Unavailable [phone] Jarred Rod MD Primary Care Provider Unav ailJarred Hayden MD Primary Care Provider Unav ailable Jarred Rod MD Primary Care Provider Unav ailable Jarred Rod MD Primary Care Provider Unav ailable Encounter Details Date Type Department Care Team (Late st Contact Info) Description 11/07/2012 Emergency [facility] [place] [address] Giacomo Galaviz MD Social History [...] st Contact Info) Description 03/14/2024 11:45 AM PUBLIC AREA SUPERVISOR Office Visit [facility] [address] Marvin Mckeon MD [facility] [address] [place] [address] 03/20/2024 11:30 AM PUBLIC AREA SUPERVISOR Office Visit [facility] Family Medicine - [place] 100 [place] [phone] Abiodun Segura II, MD 100 [place] [address] documented as of this encounter Visit Diagnoses Diagnosis Abdominal pain Abdominal pain, unspecified site documented in this encounter Care Teams Painting Worker Relationship Specialty Start Date End Date Jarred Rod MD PCP - General FAMILY PRACTICE 07/21/15 09/30/20 Jarred Rod MD PCP - General 05/05/14 07/20/15 Jarred Rod MD PCP - General 03/03/13 05/04/14 Jarred Rod MD PCP - General 12/02/12 03/02/13 Jarred Rod MD PCP - General 11/07/12 12/01/12 Crispin Gomez MD Three [facility] [address] [place] [address] [place] Technology Project Manager INTERNAL MEDICINE 07/21/15 documented as of this encounter
--- OUTSIDE RECORDS SUMMARY | 2024-03-03 01:33 | XMS_ITS | Encounter Summary ---
Author Organization [facility] Address [address] [place] [address]. [place] [address] [place] [address] Care Team Providers Care Assayer Name Role Phone Jarred Rod MD Primary Care Provider UnaCrispin Myers MD Unavailable [phone] Encounter Details Date Type Department Care Team (Late st Contact Info) Description 01/10/2016 Abstract [facility] One [place] [address] Joel Santiago MD [address] [place] [phone] Social History Tobacco Use Types Packs/Day Years [...] Contact Info) Description 03/14/2024 11:45 AM HUMAN RESOURCES MANAGER MANUFACTURING Office Visit [facility]-[address] [address] Marvin Mckeon MD Three [facility] [address] [place] [address] 03/20/2024 11:30 AM HUMAN RESOURCES MANAGER MANUFACTURING Office Visit [facility] Family Medicine - [place] 100 [place] [phone] Abiodun Segura II, MD 100 [place] [address] documented as of this encounter Visit Diagnoses Diagnosis [facility]omyel[facility] ([facility] Unspecified osteomyelitis, site unspecified documented in this encounter Care Teams Assayer Relationship Specialty Start Date End Date Jarred Rod MD PCP - General FAMILY PRACTICE 07/21/15 09/30/20 Crispin Gomez MD Three [facility] [address] [place] [address] Fermin Box Office Agent INTERNAL MEDICINE 07/21/15 documented as of this encounter
--- OUTSIDE RECORDS SUMMARY | 2024-03-03 01:33 | XMS_ITS | Encounter Summary ---
Author Organization [facility] Address [address] [place] [address]. [place] [address] [place] [address] Care Team Providers Care Shift Lab Technician Name Role Phone Jarred Rod MD Primary Care Provider Unav ailable Crispin Gomez MD Unavailable [phone] Jarred Rod MD Primary Care Provider Unav ailJarred Hayden MD Primary Care Provider Unav ailable Jarred Rod MD Primary Care Provider Unav ailable Jarred Rod MD Primary Care Provider Unav ailable Encounter Details Date Type Department Care Team (Late st Contact Info) Description 04/17/1994 Abstract [place] [address] , Generic Conversion, Social History [...] st Contact Info) Description 03/14/2024 11:45 AM TRUST MAIL CLERK Office Visit [facility] [address] Marvin Mckeon MD [address] [facility] [address] [place] [address] 03/20/2024 11:30 AM TRUST MAIL CLERK Office Visit [facility] Family Medicine - [place] 100 [place] [phone] Abiodun Segura II, MD 100 [place] [address] documented as of this encounter Visit Diagnoses Not on filedocumented in this encounter Care Teams Shift Lab Technician Relationship Specialty Start Date End Date Jarred Rod MD PCP - General FAMILY PRACTICE 07/21/15 09/30/20 Jarred Rod MD PCP - General 05/05/14 07/20/15 Jarred Rod MD PCP - General 03/03/13 05/04/14 Jarred Rod MD PCP - General 12/02/12 03/02/13 Jarred Rod MD PCP - General 11/07/12 12/01/12 Crispin Gomez MD [address] [facility] [place] [address] [place] Rn Recruitment INTERNAL MEDICINE 07/21/15 documented as of this encounter
--- OUTSIDE RECORDS SUMMARY | 2024-03-03 01:33 | XMS_ITS | Encounter Summary ---
Author Organization [facility] Address [address] [place] [address]. [place] [address] [place] [address] Care Team Providers Care Demolition Worker Name Role Phone Jarred Rod MD Primary Care Provider Unav ailable Crispin Gomez MD Unavailable [phone] Jarred Rod MD Primary Care Provider Unav ailJarred Hayden MD Primary Care Provider Unav ailable Jarred Rod MD Primary Care Provider Unav ailable Jarred Rod MD Primary Care Provider Unav ailable Encounter Details Date Type Department Care Team (Late st Contact Info) Description 12/23/1991 Abstract [place] [address] , Generic Conversion, Social History [...] st Contact Info) Description 03/14/2024 11:45 AM TEACHER THEATER ARTS Office Visit [facility] [address] Marvin Mckeon MD [address] [facility] [address] [place] [address] 03/20/2024 11:30 AM TEACHER THEATER ARTS Office Visit [facility] Family Medicine - [place] 100 [place] [phone] Abiodun Segura II, MD 100 [place] [address] documented as of this encounter Visit Diagnoses Not on filedocumented in this encounter Care Teams Demolition Worker Relationship Specialty Start Date End Date Jarred Rod MD PCP - General FAMILY PRACTICE 07/21/15 09/30/20 Jarred Rod MD PCP - General 05/05/14 07/20/15 Jarred Rod MD PCP - General 03/03/13 05/04/14 Jarred Rod MD PCP - General 12/02/12 03/02/13 Jarred Rod MD PCP - General 11/07/12 12/01/12 Crispin Gomez MD [facility] [address] [place] [address] [place] Clinical Research Associate INTERNAL MEDICINE 07/21/15 documented as of this encounter
--- OUTSIDE RECORDS SUMMARY | 2024-03-03 01:33 | XMS_ITS | Encounter Summary ---
Author Organization [facility] Address [address] [place] [address]. [place] [address] [place] [address] Care Team Providers Care Poultry Grader Name Role Phone Jarred Rod MD Primary Care Provider Unav ailable Crispin Gomez MD Unavailable Jarred Rod MD Primary Care Provider Unav ailJarred Hayden MD Primary Care Provider Unav ailable Jarred Rod MD Primary Care Provider Unav ailable Jarred Rod MD Primary Care Provider Unav ailable Encounter Details Date Type Department Care Team (Late st Contact Info) Description 05/05/1990 Abstract [place] [address] , Generic Conversion, Social History [...] Contact Info) Description 03/14/2024 11:45 AM REGULATORY AND COMPLIANCE TECHNICIAN Office Visit [facility] [address] Marvin Mckeon MD Three [facility] [address] [place] [address] 03/20/2024 11:30 AM REGULATORY AND COMPLIANCE TECHNICIAN Office Visit [facility] Family Medicine - [place] 100 [place] [phone] Abiodun Segura II, MD 100 [place] [address] documented as of this encounter Visit Diagnoses Not on filedocumented in this encounter Care Teams Poultry Grader Relationship Specialty Start Date End Date Jarred Rod MD PCP - General FAMILY PRACTICE 07/21/15 09/30/20 Jarred Rod MD PCP - General 05/05/14 07/20/15 Jarred Rod MD PCP - General 03/03/13 05/04/14 Jarred Rod MD PCP - General 12/02/12 03/02/13 Jarred Rod MD PCP - General 11/07/12 12/01/12 Crispin Gomez MD Three [facility] [address] [place] [address] [place] Blood [facility] Order Control Clerk INTERNAL MEDICINE 07/21/15 documented as of this encounter
--- OUTSIDE RECORDS SUMMARY | 2024-03-03 01:33 | XMS_ITS | Encounter Summary ---
Author Organization [facility] Address [address] [place] [address]. [place] [address] [place] [address] Care Team Providers Care Engineering Design Manager Name Role Phone Jarred Rod MD Primary Care Provider Unav ailable Crispin Gomez MD Unavailable [phone] Jarred Rod MD Primary Care Provider Unav ailJarred Hayden MD Primary Care Provider Unav ailable Jarred Rod MD Primary Care Provider Unav ailable Jarred Rod MD Primary Care Provider Unav ailable Encounter Details Date Type Department Care Team (Late st Contact Info) Description 06/09/1996 Abstract [facility]NA CONVERSION [place], [place] [id number] , Generic Conversion, Social History Tobacco Use [...] Contact Info) Description 03/14/2024 11:45 AM HEALTH SERVICES RN Office Visit [facility]-[address] [address] Marvin Mckeon MD Three [facility] [address] [place] [address] 03/20/2024 11:30 AM HEALTH SERVICES RN Office Visit [facility] Family Medicine - [place] 100 [place] [phone] Abiodun Segura II, MD 100 [place] [address] documented as of this encounter Visit Diagnoses Not on filedocumented in this encounter Care Teams Engineering Design Manager Relationship Specialty Start Date End Date Jarred Rod MD PCP - General FAMILY PRACTICE 07/21/15 09/30/20 Jarred Rod MD PCP - General 05/05/14 07/20/15 Jarred Rod MD PCP - General 03/03/13 05/04/14 Jarred Rod MD PCP - General 12/02/12 03/02/13 Jarred Rod MD PCP - General 11/07/12 12/01/12 Crispin Gomez MD [address] [facility] [address] [place] [address] [place] Finishing Manager INTERNAL MEDICINE 07/21/15 documented as of this encounter
--- OUTSIDE RECORDS SUMMARY | 2024-03-03 01:33 | XMS_ITS | Encounter Summary ---
Author Organization [facility] Address [address] [place] [address]. [place] [address] [place] [address] Care Team Providers Care Manager Primary Name Role Phone Jarred Rod MD Primary Care Provider Unav ailable Crispin Gomez MD Unavailable Jarred Rod MD Primary Care Provider Unav ailJarred Hayden MD Primary Care Provider Unav ailable Jarred Rod MD Primary Care Provider Unav ailable Jarred Rod MD Primary Care Provider Unav ailable Encounter Details Date Type Department Care Team (Late st Contact Info) Description 01/29/2006 [place] [address] Giacomo Galaviz MD Social History [...] st Contact Info) Description 03/14/2024 11:45 AM GLUE DRIER OPERATOR Office Visit [facility] [address] Marvin Mckeon MD [address] [facility] [address] [place] [address] 03/20/2024 11:30 AM GLUE DRIER OPERATOR Office Visit [facility] Family Medicine - [place] 100 [place] [phone] Abiodun Segura II, MD 100 [place] [address] documented as of this encounter Visit Diagnoses Not on filedocumented in this encounter Care Teams Manager Primary Relationship Specialty Start Date End Date Jarred Rod MD PCP - General FAMILY PRACTICE 07/21/15 09/30/20 Jarred Rod MD PCP - General 05/05/14 07/20/15 Jarred Rod MD PCP - General 03/03/13 05/04/14 Jarred Rod MD PCP - General 12/02/12 03/02/13 Jarred Rod MD PCP - General 11/07/12 12/01/12 Crispin Gomez MD [address] [facility] [address] [place] [address] [place] Solution Designer INTERNAL MEDICINE 07/21/15 documented as of this encounter
--- OUTSIDE RECORDS SUMMARY | 2024-03-03 01:33 | XMS_ITS | Encounter Summary ---
Author Organization [facility] Address [address] [place] [address]. [place], [place] [address] [place] [address] Care Team Providers Care Acting Manager Name Role Phone Jarred Rod MD Primary Care Provider Unav ailable Crispin Gomez MD Unavailable [phone] Jarred Rod MD Primary Care Provider Unav ailJarred Haydne MD Primary Care Provider Unav ailable Jarred Rod MD Primary Care Provider Unav ailable Jarred Rod MD Primary Care Provider Unav ailable Encounter Details Date Type Department Care Team (Late st Contact Info) Description 04/01/2006 Emergency [facility] Emergency Room [place], [place] [phone] Nina Lawrence MD [address] [place], [place] [id number] Social History Tobacco Use Types Packs/Day Years [...] Contact Info) Description 03/14/2024 11:45 AM STATION INSTALLER Office Visit [facility]-[address] [address] Marvin Mckeon MD [address] [facility] [address] [place] [address] 03/20/2024 11:30 AM STATION INSTALLER Office Visit [facility] Medical [facility] Family Medicine - [place] 100 [place] [phone] Abiodun Segura II, MD 100 [place], [place] [phone] documented as of this encounter Visit Diagnoses Not on filedocumented in this encounter Care Teams Acting Manager Relationship Specialty Start Date End Date Jarred Rod MD PCP - General FAMILY PRACTICE 07/21/15 09/30/20 Jarred Rod MD PCP - General 05/05/14 07/20/15 Jarred Rod MD PCP - General 03/03/13 05/04/14 Jarred Rod MD PCP - General 12/02/12 03/02/13 Jarred Rod MD PCP - General 11/07/12 12/01/12 Crispin Gomez MD Three [facility] [place], [place] [address] [place] Bed Control Specialist INTERNAL MEDICINE 07/21/15 documented as of this encounter
--- OUTSIDE RECORDS SUMMARY | 2024-03-03 01:33 | XMS_ITS | Encounter Summary ---
Author Organization [facility] Address [address] [place] [address]. [place] [address] [place] [address] Care Team Providers Care Signal Tester Name Role Phone Jarred Rod MD Primary Care Provider Unav ailable Crispin Gomez MD Unavailable [phone] Jarred Rod MD Primary Care Provider Unav ailJarred Hayden MD Primary Care Provider Unav ailable Jarred Rod MD Primary Care Provider Unav ailable Jarred Rod MD Primary Care Provider Unav ailable Encounter Details Date Type Department Care Team (Late st Contact Info) Description 02/02/[address] [facility] Med/Surg 3rd Floor [address] [place], [place] [address] Giacomo Galaviz MD Social History Tobacco Use [...] Contact Info) Description 03/14/2024 11:45 AM ACCOUNT RESOLUTION EXPERT Office Visit [facility] [address] Marvin Mckeon MD [address] [facility] [address] [place] [address] 03/20/2024 11:30 AM ACCOUNT RESOLUTION EXPERT Office Visit [facility] Medical Group Family Medicine - [place] 100 [place] [phone] Abiodun Segura II, MD 100 [place] [address] documented as of this encounter Visit Diagnoses Not on filedocumented in this encounter Care Teams Signal Tester Relationship Specialty Start Date End Date Jarred Rod MD PCP - General FAMILY PRACTICE 07/21/15 09/30/20 Jarred Rod MD PCP - General 05/05/14 07/20/15 Jarred Rod MD PCP - General 03/03/13 05/04/14 Jarred Rod MD PCP - General 12/02/12 03/02/13 Jarred Rod MD PCP - General 11/07/12 12/01/12 Crispin Gomez MD Three [facility]. 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
--- OUTSIDE RECORDS SUMMARY | 2024-03-03 02:10 | XMS_ITS | Encounter Summary ---
Author Organization [facility] Address [address] [place] [address] Phone Care Team Providers Care Home Care Physical Therapist Name Role Phone Provider, None Primary Care Provider Unavailabl e Encounter Details Date Type Department Care Team (Late st Contact Info) Description 04/04/2022 Telephone [facility] - Gastroenterology - [place] [address] [place] [address] Jose Maria Downey MD [address] [place], [place] [phone] Social History Tobacco Use Types Packs/Day Years Used Date Smoking Tobacco: Never Assessed Comments Unknown Sex and Gender Information Value Date Recorded Sex Assigned at Not on file Legal Sex Female 10:13 PM CDT Gender Identity Not on file Sexual Orientation Not on file documented as of this encounter Miscellaneous Notes * Telephone Encounter - Sang Astudillo CMA - 04/04/2022 10:13 AM BUILDING SERVICES TECHNICIAN Received request for medical records from [facility]. This was scanned to medical records. DING SERVICES TECHNICIAN documented in this encounter Plan of Treatment Not on file documented as of this encounter Visit Diagnoses Not on filedocumented in this encounter Care Teams Home Care Physical Therapist Relationship Specialty Start Date End Date Provider, None HATTIE PCP - General 10/09/16 documented as of this encounter
--- OUTSIDE RECORDS SUMMARY | 2024-03-03 02:10 | XMS_ITS | Clinical Summary ---
Author Organization [facility] Address [address] [place] [address] Phone Care Team Providers Care Intelligence Intern Name Role Phone Provider, None Primary Care [...] age to complete this topic Care Teams Intelligence Intern Relationship Specialty Start Date End Date Provider, Wesley MA PCP - General 10/09/16
== END 2024-02-26 06:24 | disposition home or self-care (01) ==
PROVIDERS: Physician Assistant; Emergency Provider Emergency Medicine
DX: R10.11 Right upper quadrant pain (principal); I10 Essential (primary) hypertension; E78.5 Hyperlipidemia, unspecified; E11.9 Type 2 diabetes mellitus without complications; Q63.3 Hyperplastic and giant kidney; Z90.49 Acquired absence of other specified parts of digestive tract; Z90.710 Acquired absence of both cervix and uterus; Z89.432 Acquired absence of left foot; Z79.4 Long term (current) use of insulin; Z79.899 Other long term (current) drug therapy; N20.0 Calculus of kidney
CPT/HCPCS: 36415; 74177; 80053; 81001; 82948; 83690; 84484; 85025; 93005; 96361; 96374; 96375; 96376; 99285; A9270; J1171; J1200; J1885; J2270; J2405; J2470; J7030; Q9967